=== PATIENT | female | born 1960 | race Caucasian/White ===

== ENCOUNTER → 2016-05-12 | Outpatient (CLI) | payer MEDICAID ==
[~2016-05-12] MED LIST: ACET-789 PO; ACIPHEX PO; ALBU17AE3 IH; ALBU8.5H2 IH; ALDACTONE25 MG PO; AMIT100T2 PO; AMIT150T PO; AMITRIPTYLINE PO; AMLO10TA2 PO; ASCO10006 PO; ATR20T PO; ATRV10T; BUDE10.2 IH; BUDE6HFA IH; CALC625T29 PO; CEPH-507 PO; CEPH500C PO; CETI10TA20 PO; CLON1TAB3 PO; CPR500T PO; CRS350T PO; D50KC PO; DEXL60CA PO; DEXL60CA3 PO; DICL100G20 TOP; DIPH1TAB PO; DIPH1TAB25; DIPH1TAB45 PO; DOXY100C2 PO; DULO30CA; DULO60CA6 PO; FERR-84 PO; FLT05NA16 NS; FLUR30CA13 PO; FNT75TD; FRS325T PO; FURO40TA4; FURO40TA4 PO; FURO80TA PO; GABA300C PO; GABA600T2 PO; GBPN300C PO; HCT25T PO; HYDR1TAB PO; IRON45TA6 PO; KCL20TCR; LACT1CAP72 PO; LEVO125T; LEVO125T6 PO; LEVO75TA58 PO; LIDO700A6 TP; LISI10TA PO; LISI40TA PO; LOSA100T28 PO; LOSA25TA5 PO; LOVA20TA2 PO; METH10TA2 PO; METH5TAB PO; METO-272 PO; METO100T5 PO; METR500T PO; MILN100T PO; MOME13HF2 IH; MTH10T PO; MULT-228 PO; MULT-35 PO; NAPR-243 PO; NFNEB10T; NIAC1CAP PO; NYST1000 MM; OMG1KC PO; ONDA8TAB9 PO; PANT40TA2 PO; PEDI1TAB29 PO; POTA10CA16 PO; POTA10CA43 PO; PREG150C PO; PROP120C3; PSYL0.525 PO; QUET200T PO; RABE20TA PO; ROPI1TAB2 PO; ROPI2TAB3; ROPI4TAB PO; RT-ALBUINH IH; SCR1T PO; SUMA25TA3 PO; TEMA15CA54; TEMA15CA54 PO; TOLTA4 PO; TRAM; TRAM50TA2 PO; VENL150C98 PO; VNL75CCR PO; [UNRECOGNIZED DRUG - CODE] PC; [UNRECOGNIZED DRUG - CODE] PO
--- NOTE | 2016-05-12 18:39 | Diagnostic Imaging Report ---
PROCEDURE: MRI lumbar spine. TECHNIQUE: Multiplanar, multisequence MRI of the lumbar spine was performed without contrast. INDICATION: Lumbar radiculopathy COMPARISON: CT dated January 01, 2010 FINDINGS: Five lumbar type vertebral bodies are present. Alignment of the lumbar spine is well maintained. Vertebral body heights are well-maintained. Mild disc space height loss at L4/L5. Otherwise, disc space heights are well-maintained. Bone marrow signal intensity is unremarkable. The conus medullaris is unremarkable and terminates at the appropriate location. The paraspinal soft tissues are unremarkable. T12/L1: No significant central canal or neuroforaminal stenosis. L1/L2: No significant central canal or neuroforaminal stenosis. L2/L3: Minimal bilateral facet joint degenerative changes. No significant central canal or neuroforaminal stenosis. L3/L4: Mild bilateral facet joint degenerative changes. No significant central canal or neuroforaminal stenosis. L4/L5: Mild bilateral facet joint degenerative changes. Mild disc space height loss. There is resulting very minimal right neuroforaminal stenosis. No significant central canal stenosis. L5/S1: Conjoined nerve roots are identified on the left. No significant central canal or neuroforaminal stenosis. IMPRESSION: No acute osseous abnormality. No high-grade central canal or neuroforaminal stenosis. 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 Dictated by: Dictated on workstation # [id number]
== END ==
LOC: RAD 17:13
PROVIDERS: ATTEND Orthopaedic Surgery
DX: M54.16 Radiculopathy, lumbar region (principal); M17.12 Unilateral primary osteoarthritis, left knee; M17.11 Unilateral primary osteoarthritis, right knee
CPT/HCPCS: 72148

== ENCOUNTER → 2016-06-16 | Outpatient (CLI) | payer MEDICAID ==
[~2016-06-16] VITALS: Ht 160 cm; Wt 110.2 kg
[~2016-06-16] MED LIST changes: +BUPIVACAINE 0.5% 30 ML (SENSORCAINE) VIAL ONE; +LIDOCAINE 1% INJ 20 ML (XYLOCAINE) VIAL ONE; +TRIAMCINOLONE ACET (KENALOG-40) 40 MG/ML 1 ML VIAL ONE
[2016-06-16 12:56] VITALS: BP 124/75
[2016-06-16 13:31] VITALS: BP 129/77
--- NOTE | 2016-06-16 14:50 | Pain Medicine-Procedure ---
Procedure Pre-Op/Post-Op Diagnosis Diagnosis: spondylosis without myelopathy, lumbar Indications for Operation low back pain Attending Surgeon Kaveh Procedure Date of Service: Jun 16, 2016 Procedure: Fluoroscopic guided right Medial Branch Block of L3 to sacral ala PROCEDURE IN DETAIL: After obtaining informed consent from the patient, the patient's chart was reviewed. The patient was then brought to the procedure room and placed in the prone position. A time out was performed. The back was prepped with antiseptic solution and under fluoroscopic guidance the patient's sacral ala on the right side was identified. 2 mL's of 1% Lidocaine was used to anesthetized the skin over the sacral ala and a 22 gauge 3.5 inch needle was advanced towards the target until bone was contacted. The junction of the superior articular processes and the transverse processes at L3-L5 on the right were then identified and the skin overlying these targets was anesthetized with 1% lidocaine. Next a 22 gauge 3.5 inch needle was inserted through the skin to the level of the lumbar medial branches under radiographic guidance. Next, after negative aspiration, a mixture of 2 mL's Bupivacaine 0.5% and 80 mg Kenalog was injected in 4 equal aliquots. CSF was negative, Paresthesia was negative, Heme was negative. All needles were then flushed with 1% lidocaine and then removed. Complications none BRENTON BENNETT MD Jun 16, 2016 2:50 pm
== END ==
LOC: CARD 12:38
PROVIDERS: ATTEND Pain Medicine Pain Medicine
DX: M47.816 Spondylosis without myelopathy or radiculopathy, lumbar region (principal); M53.3 Sacrococcygeal disorders, not elsewhere classified; E66.01 Morbid (severe) obesity due to excess calories; Z68.41 Body mass index [BMI] 40.0-44.9, adult; M79.7 Fibromyalgia; Z79.899 Other long term (current) drug therapy
CPT/HCPCS: 64493; 64494; 64495

== ENCOUNTER 2016-06-19 12:44 | Outpatient (CLI) | payer MEDICAID ==
[~2016-06-19] VITALS: Ht 160 cm; Wt 110.2 kg
[~2016-06-19 12:44] MED LIST changes: -BUPIVACAINE 0.5% 30 ML (SENSORCAINE) VIAL ONE; -LIDOCAINE 1% INJ 20 ML (XYLOCAINE) VIAL ONE; -TRIAMCINOLONE ACET (KENALOG-40) 40 MG/ML 1 ML VIAL ONE
[2016-06-19] MEDS ORDERED: TRIAMCINOLONE ACET (KENALOG-40) 40 MG/ML 1 ML VIAL ONE (12:52)
[2016-06-19] MEDS ORDERED: BUPIVACAINE 0.5% 30 ML (SENSORCAINE) VIAL ONE (12:52)
[2016-06-19] MEDS ORDERED: LIDOCAINE 1% INJ 20 ML (XYLOCAINE) VIAL ONE (12:52)
[2016-06-19 13:21] VITALS: BP 149/94
[2016-06-19 13:47] VITALS: BP 149/96
--- NOTE | 2016-06-19 14:15 | Pain Medicine-Procedure ---
Procedure Pre-Op/Post-Op Diagnosis Diagnosis: spondylosis without myelopathy, lumbar Indications for Operation Low back pain Attending Surgeon Kaveh Procedure Date of Service: Jun 19, 2016 Procedure: Fluoroscopic guided left Medial Branch Block of L3 to sacral ala PROCEDURE IN DETAIL: After obtaining informed consent from the patient, the patient's chart was reviewed. The patient was then brought to the procedure room and placed in the prone position. A time out was performed. The back was prepped with antiseptic solution and under fluoroscopic guidance the patient's sacral ala on the left side was identified. 2 mL's of 1% Lidocaine was used to anesthetized the skin over the sacral ala and a 22 gauge 3.5 inch needle was advanced towards the target until bone was contacted. The junction of the superior articular processes and the transverse processes at L3-L5 on the left were then identified and the skin overlying these targets was anesthetized with 1% lidocaine. Next a 22 gauge 3.5 inch needle was inserted through the skin to the level of the lumbar medial branches under radiographic guidance. Next, after negative aspiration, a mixture of 2 mL's Bupivacaine 0.5% and 80 mg Kenalog was injected in 4 equal aliquots. CSF was negative, Paresthesia was negative, Heme was negative. All needles were then flushed with 1% lidocaine and then removed. Band-Aids were applied to all the sites and the patient tolerated the procedure well and was taken to the recovery area in stable condition. Patient was discharged to home in stable condition with no new neurologic deficits. Complications None BRENTON BENNETT MD Jun 19, 2016 2:15 pm
== END 2016-06-19 13:48 | disposition home or self-care (01) ==
LOC: CARD 12:44
PROVIDERS: ATTEND Pain Medicine Pain Medicine
DX: M47.816 Spondylosis without myelopathy or radiculopathy, lumbar region (principal); E66.01 Morbid (severe) obesity due to excess calories; Z68.41 Body mass index [BMI] 40.0-44.9, adult; M53.3 Sacrococcygeal disorders, not elsewhere classified; Z79.899 Other long term (current) drug therapy; M79.7 Fibromyalgia
CPT/HCPCS: 64493; 64494; 64495

== ENCOUNTER 2016-10-03 17:17 | Emergency (ER) | payer MEDICAID ==
[~2016-10-03] VITALS: Ht 160 cm; Wt 117.0 kg
[2016-10-03] MEDS ORDERED: NS IV 500 ML 500 ML IV ONE (18:34)
[2016-10-03] MEDS ORDERED: ONDANSETRON 4 MG/2 ML (SDV) Z0FRAN IVP ONE (18:45)
[2016-10-03 18:52] LABS: BASOPHILS # (AUTO) 0.1 10^3/uL (0.0-0.1); BASOPHILS % (AUTO) 1 % (0-10); EOSINOPHILS # (AUTO) 0.3 10^3/uL (0.0-0.3); EOSINOPHILS % (AUTO) 4 % (0-10); LYMPHOCYTES # (AUTO) 2.3 X 10^3 (1.0-4.0); LYMPHOCYTES % (AUTO) 27 % (12-44); MEAN CORPUSCULAR HEMOGLOBIN 29 PG (25-34); MEAN CORPUSCULAR HGB CONC 32 G/DL (32-36); MEAN CORPUSCULAR VOLUME 91 FL (80-99); MEAN PLATELET VOLUME 9.8 FL (7.4-10.4); MONOCYTES # (AUTO) 0.7 X 10^3 (0.0-1.0); MONOCYTES % (AUTO) 8 % (0-12); NEUTROPHILS # (AUTO) 5.3 X 10^3 (1.8-7.8); NEUTROPHILS % (AUTO) 60 % (42-75); PLATELET COUNT 283 10^3/uL (130-400); RED BLOOD COUNT 4.19 10^6/uL (4.35-5.85); RED CELL DISTRIBUTION WIDTH 13.4 % (10.0-14.5); WHITE BLOOD COUNT 8.7 10^3/uL (4.3-11.0)
[2016-10-03 19:11] LABS: ALBUMIN 4.4 GM/DL (3.2-4.5); BILIRUBIN,TOTAL 0.4 MG/DL (0.1-1.0); CALCIUM 10.2 MG/DL (8.5-10.1); CREATININE SERUM 1.13 MG/DL (0.60-1.30); ICTERUS 0.3 (-100-1.9); MAGNESIUM 1.9 MG/DL (1.8-2.4); POTASSIUM 4.1 MMOL/L (3.6-5.0); TOTAL PROTEIN 7.8 GM/DL (6.4-8.2)
[2016-10-03 19:31] LABS: THYROID STIMULATING HORMONE 6.19 UIU/ML (0.35-4.94)
[2016-10-03 19:49] LABS: BILIRUBIN,URINE NEGATIVE (NEGATIVE); KETONES,URINE NEGATIVE (NEGATIVE); LEUKOCYTE ESTERASE ,URINE 1+ (NEGATIVE); NITRITE,URINE NEGATIVE (NEGATIVE); PH,URINE 7 (5-9); PROTEIN,URINE NEGATIVE (NEGATIVE); UROBILINOGEN,URINE NORMAL (NORMAL)
[2016-10-03] MEDS ORDERED: ONDA4TAB8 SL (20:11)
--- NOTE | 2016-10-03 20:12 | ED General ---
General Chief Complaint: General Problems/Pain Stated Complaint: NAUSEA/HEADACHE Nursing Triage Note: AMB TO ED C/O NAUSEA FOR 1 WEEK AND WITH HEADACHE FOR 5 DAYS NO VOMITING. REPORTS THAT HAS STAGE 4 RENAL DIEASE. Nursing Sepsis Screen: No Definite Risk Source of Information: Patient Exam Limitations: No Limitations History of Present Illness Time Seen by Provider: 18:25 Initial Comments This pleasant 56-year-old woman presents to the emergency room with headache 5 days and nausea without vomiting 1 week. She reports urine has been dark and odorous. She has not been drinking well recently due to the nausea. She gives a history of chronic renal failure but is not presently seeing a manager mission due to financial resources. Her primary care provider is Miya Mae. Allergies and Home Medications Allergies Coded Allergies: No Known Drug Allergies (Unverified , 09/29/15) Home Medications Albuterol Sulfate 6.7 Gm Hfa.aer.ad, 2 PUFF IH Q4H PRN for SHORTNESS OF BREATH, (Reported) Amitriptyline HCl 150 Mg Tablet, 150 MG PO HS, (Reported) Amlodipine Besylate 10 Mg Tablet, 10 MG PO DAILY, (Reported) Budesonide/Formoterol Fumarate 10.2 Gm Hfa.aer.ad, 2 PUFF IH BID, (Reported) Cetirizine HCl 10 Mg Tablet, 10 MG PO DAILY, (Reported) Clonazepam 1 Mg Tablet, 1 MG PO BID, (Reported) Duloxetine HCl 60 Mg Capsule.dr, 60 MG PO DAILY, (Reported) Ergocalciferol (Vitamin D2) 50,000 Unit Capsule, 50,000 UNIT PO ONCE A MONTH, ( Reported) Ferrous Sulfate 325 Mg Tablet, 650 MG PO TID, (Reported) TAKES 2 (325MG) TABLETS Fluticasone Propionate 16 Gm Covert, 2 SPRAY NS DAILY PRN for ALLERGIES, ( Reported) Furosemide 40 Mg Tablet, 40 MG PO DAILY, (Reported) Levothyroxine Sodium 125 Mcg Tablet, 125 MCG PO DAILY, (Reported) Losartan Potassium 100 Mg Tablet, 100 MG PO DAILY, (Reported) Metoprolol Succinate 50 Mg Tab.er.24h, 50 MG PO TID, (Reported) Multivitamin 1 Each Tablet, 1 EACH PO DAILY, (Reported) Niacin (Inositol Niacinate) 500 Mg Capsule, 500 MG PO HS, (Reported) Nystatin 100,000 Unit/1 Ml Oral.susp, 5 ML MM DAILY PRN for MOUTH SORES, ( Reported) [place] 3 Polyunsat Fatty Acids 1,000 Mg Cap, 1,000 MG PO BID, (Reported) Ondansetron 4 Mg Tab.rapdis, 4 MG SL Q4H, #10 Prescribed by: STACEY WEST on 10/03/162010 Pantoprazole Sodium 40 Mg Tablet.dr, 40 MG PO PRN, (Reported) Potassium Chloride 10 Meq Capsule.er, 10 MEQ PO DAILY, (Reported) Pregabalin 150 Mg Capsule, 150 MG PO TID, (Reported) Ropinirole HCl 4 Mg Tab.er.24h, 8 MG PO HS, (Reported) TAKES 2 (4MG) TABLETS [Power-C] , 2 TAB.CHEW PC TID, (Reported) VITAMIN C ASCORBIC ACID AND SODIUM ASCORBATE 240MG EACH Constitutional: no symptoms reported EENTM: no symptoms reported Respiratory: no symptoms reported Cardiovascular: no symptoms reported Gastrointestinal: see HPI Genitourinary: see HPI : No Musculoskeletal: no symptoms reported Skin: no symptoms reported Psychiatric/Neurological: See HPI Hematologic/Lymphatic: No Symptoms Reported Immunological/Allergic: no symptoms reported Past Ynymlew-Oicgpf-Uoigji Hx Patient Social History Alcohol Use: Denies Use Recreational Drug Use: No Smoking Status: Never a Smoker Recent Foreign Travel: No Contact w/Someone Who Travel: No Recent Infectious Disease Expo: No Recent Hopitalizations: Yes Surgeries HX Surgeries: Yes ( lt endolymphatic shunt mastoids, esphageal zenker diverticulum removed) Respiratory Hx Respiratory Disorders: Yes (ASTHMA) Respiratory Disorders: Asthma Cardiovascular Hx Cardiac Disorders: Yes (CAD, MITRAL VALVE PROLAPSE) Cardiac Disorders: High Cholesterol, Hypertension, Valvular Heart Disease Neurological Hx Neurological Disorders: No Reproductive System Hx Reproductive Disorders: No Sexually Transmitted Disease: No Genitourinary Hx Genitourinary Disorders: Yes Genitourinary Disorders: Renal Failure Gastrointestinal Hx Gastrointestinal Disorders: Yes Gastrointestinal Disorders: Gastroesophageal Reflux Musculoskeletal Hx Musculoskeletal Disorders: Yes (FIBROMYALGIA) Musculoskeletal Disorders: Arthritis, Fibromyalgia Endocrine Hx Endocrine Disorders: Yes Endocrine Disorders: Hypothyroidsim HEENT HX ENT Disorders: Yes Psychosocial Hx Psychiatric Problems: Yes Behavioral Health Disorders: Anxiety, Depression Blood Transfusions Hx Blood Disorders: No Physical Exam Vital Signs Vital Sign - Last 12Hours 10/03/16 10/03/16 18:20 20:13 Temp 98.9 Pulse 79 Resp 18 B/P (MAP) 169/90 Pulse Ox 94 O2 Delivery Room Air Capillary Refill : Less Than 3 Seconds General Appearance: No Apparent Distress, WD/WN HEENT: PERRL/EOMI, TMs Normal, Normal ENT Inspection, Other (oropharynx somewhat dry) Neck: Normal Inspection Respiratory: Lungs Clear, Normal Breath Sounds, No Accessory Muscle Use, No Respiratory Distress Cardiovascular: Regular Rate, Rhythm, No Edema, No Murmur Gastrointestinal: Normal Bowel Sounds, Non Tender, Soft Extremity: Normal Inspection, Other (minimal lower extremity edema, equal bilaterally) Neurologic/Psychiatric: Alert, Oriented x3, No Motor/Sensory Deficits, Normal Mood/Affect, home care music therapist II-XII Norm as Tested Skin: Normal Color, Warm/Dry Progress/Results/Core Measures Results/Orders Lab Results Laboratory Tests Test 10/03/16 18:42 10/03/16 19:40 Range/Units White Blood Count 8.7 4.3-11.0 10^3/uL Red Blood Count 4.19 L 4.35-5.85 10^6/uL Hemoglobin 12.1 11.5-16.0 G/DL Hematocrit 38 35-52 % Mean Corpuscular Volume 91 80-99 FL Mean Corpuscular Hemoglobin 29 25-34 PG Mean Corpuscular Hemoglobin Concent 32 32-36 G/DL Red Cell Distribution Width 13.4 10.0-14.5 % Platelet Count 283 130-400 10^3/uL Mean Platelet Volume 9.8 7.4-10.4 FL Neutrophils (%) (Auto) 60 42-75 % Lymphocytes (%) (Auto) 27 12-44 % Monocytes (%) (Auto) 8 0-12 % Eosinophils (%) (Auto) 4 0-10 % Basophils (%) (Auto) 1 0-10 % Neutrophils # (Auto) 5.3 1.8-7.8 X 10^3 Lymphocytes # (Auto) 2.3 1.0-4.0 X 10^3 Monocytes # (Auto) 0.7 0.0-1.0 X 10^3 Eosinophils # (Auto) 0.3 0.0-0.3 10^3/uL Basophils # (Auto) 0.1 0.0-0.1 10^3/uL Sodium Level 142 135-145 MMOL/L Potassium Level 4.1 3.6-5.0 MMOL/L Chloride Level 103 98-107 MMOL/L Carbon Dioxide Level 27 21-32 MMOL/L Anion Gap 12 5-14 MMOL/L Blood Urea Nitrogen 14 7-18 MG/DL Creatinine 1.13 0.60-1.30 MG/DL Estimat Glomerular Filtration Rate 50 BUN/Creatinine Ratio 12 0-20 Glucose Level 97 70-105 MG/DL Calcium Level 10.2 H 8.5-10.1 MG/DL Magnesium Level 1.9 1.8-2.4 MG/DL Total Bilirubin 0.4 0.1-1.0 MG/DL Aspartate Amino Transf (AST/SGOT) 23 5-34 U/L Alanine Aminotransferase (ALT/SGPT) 21 0-55 U/L Alkaline Phosphatase 111 40-136 U/L Total Protein 7.8 6.4-8.2 GM/DL Albumin 4.4 3.2-4.5 GM/DL Thyroid Stimulating Hormone (TSH) 6.19 H 0.35-4.94 UIU/ML Free Thyroxine 0.84 0.70-1.48 NG/DL Urine Color YELLOW Urine Clarity CLEAR Urine pH 7 5-9 Urine Specific Boring 1.005 L 1.016-1.022 Urine Protein NEGATIVE NEGATIVE Urine Glucose (UA) NEGATIVE NEGATIVE Urine Ketones NEGATIVE NEGATIVE Urine Nitrite NEGATIVE NEGATIVE Urine Bilirubin NEGATIVE NEGATIVE Urine Urobilinogen NORMAL NORMAL MG/DL Urine Leukocyte Esterase 1+ H NEGATIVE Urine RBC (Auto) NEGATIVE NEGATIVE Urine RBC NONE /HPF Urine WBC 2-5 /HPF Urine Squamous Epithelial Cells 2-5 /HPF Urine Crystals NONE /LPF Urine Bacteria TRACE /HPF Urine Casts NONE /LPF Urine Mucus NEGATIVE /LPF Urine Culture Indicated NO My Orders Orders - STACEY COMBS MD Cbc With Automated Diff (10/03/16 18:34) Comprehensive Metabolic Panel (10/03/16 18:34) Magnesium (10/03/16 18:34) Thyroid Stimulating Hormone (10/03/16 18:34) Ua Culture If Indicated (10/03/16 18:34) Ondansetron Injection (Zofran Injectio (10/03/16 18:45) Saline Lock/Iv-Start (10/03/16 18:34) Ns Iv 500 Ml (Sodium Chloride 0.9%) (10/03/16 18:34) Free T4 (Free Thyroxine) (10/03/16 18:34) Medications Given in ED Current Medications Medications Dose Ordered Sig/Sonia Route Start Time Stop Time Status Last Admin Dose Admin Ondansetron HCl 4 mg ONCE ONCE IVP 10/03/16 18:45 10/03/16 18:46 DC 10/03/16 18:58 4 MG Sodium Chloride 500 ml @ 0 mls/hr Q0M ONCE IV 10/03/16 18:34 10/03/16 18:37 DC 10/03/16 18:58 999 MLS/HR Vital Signs/I&O Vital Sign - Last 12Hours 10/03/16 10/03/16 18:20 20:13 Temp 98.9 98.9 Pulse 79 69 Resp 18 18 B/P (MAP) 169/90 Pulse Ox 94 O2 Delivery Room Air Blood Pressure Mean: 116 Progress Note : Progress Note Patient was given normal saline 500 mL bolus. Workup was relatively unremarkable. Zofran improved and nausea and she was tolerating oral liquids without difficulty. Departure Impression Impression: Primary Impression: Nausea Additional Impression: Headache Qualified Codes: R51 - Headache Disposition: 01 HOME, SELF-CARE Condition: Improved Departure-Patient Inst. Decision time for Depature: 20:09 Referrals: CAMERON OGLESBY DO (PCP) Primary Care Physician MIYA MAE (Family) Primary Care Physician Patient Instructions: Nausea and Vomiting, Adult Add. Discharge Instructions: Drink plenty of clear liquids. Use Zofran (ondansetron) dissolved under the tongue every 4 hours as prescribed for nausea. Follow-up with your primary care provider preferably next week. Return to the ER if symptoms worsen. All discharge instructions reviewed with patient and/or family. Voiced understanding. Scripts Ondansetron (Zofran Odt) 4 Mg Tab.rapdis 4 MG SL Q4H, #10 TAB Prov: STACEY COMBS MD 10/03/16 Copy Copies To 1: ANN MARIE JARA MD, JOSHUA T MD Oct 03, 2016 20:12
[2016-10-03 20:13] VITALS: BP 139/63
--- OUTSIDE RECORDS SUMMARY | 2016-10-05 16:34 | XMS REPORT ---
Author Author ZABRINA MEDINA Organization [employer] Address Unknown Phone Unavailable Care Team Providers Care Car Tester Name Role Phone ZABRINA MEDINA CP Unavailable Allergies No Known Allergies Problems Problem Type Condition Code Onset Dates Condition Status Problem Generalized anxiety disorder F41.1 Active Problem Depressed F32.9 Active Problem Restless leg G25.81 Active Problem Dysthymic 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 Active Problem Coronary artery disease involving [place] coronary artery of [place] heart, angina presence unspecified I25.10 Active Problem Hypertension I10 Active Problem Chronic kidney disease, stage 4 (severe) N18.4 Active Problem Palpitations R00.2 Active Problem Asthma J45.909 Active Problem Hypothyroid E03.9 Active Problem Insomnia G47.00 Active Medications Medication Code System Code Instructions Start Date End Date Status Dosage Zolpidem Tartrate [place] 86450083619 5 MG TAKE ONE TABLET BY MOUTH AT BEDTIME Clonazepam [place] 12707544288 1 MG TAKE ONE-HALF TABLET BY MOUTH TWICE DAILY Results No Known Results Summary Purpose [employer] Submission
--- OUTSIDE RECORDS SUMMARY | 2016-10-05 16:34 | XMS REPORT ---
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 Name Role Phone ELROY GREENE CP Unavailable Allergies No Known Allergies Problems Problem Type Condition Code Onset Dates Condition Status Problem Generalized anxiety disorder F41.1 Active Problem Depressed F32.9 Active Problem Restless leg G25.81 Active Problem Coronary artery disease involving [place] coronary artery of [place] heart, angina presence unspecified I25.10 Active Problem Hypertension I10 Active Problem Chronic kidney disease, stage 4 (severe) N18.4 Active Problem Palpitations R00.2 Active Problem Asthma J45.909 Active Problem Hypothyroid E03.9 Active Problem Insomnia G47.00 Active Assessment Dysthymic 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 Active Assessment Generalized anxiety disorder F41.1 Active Problem Dysthymic 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 Active Medications No Known Medications Results No Known Results Summary Purpose [employer] Submission
--- OUTSIDE RECORDS SUMMARY | 2016-10-05 16:34 | XMS REPORT | Clinical Summary ---
Author Author Admin, MONICA Organization [facility] Address Unknown Phone Unavailable Allergies, Adverse Reactions, Alerts Allergy Name Reaction Description Start Date Severity Status Provider No Known Allergies Maryam Lewis RN Conditions or Problems Problem Name Problem Code Onset Date Status Entry Date Provider Comment Standard Description Annotate Incontinence, mixed, urge/stress 788.33 Active David Marcelino MD Mixed incontinence (female) (male) Medication List Medication Instructions Start Date Stop Date Generic Name NDC Status Provider Patient Instruction No Drug Therapy Prescribed - none known did ask Maryam Lewis RN CYCLOBENZAPRINE HCL 10 MG TABS 1 tablet by mouth three times daily as needed for muscle spasm/pain CYCLOBENZAPRINE HCL 28298467999 Active David Marcelino MD Active EQ FIBER THERAPY 0.52 GM ORAL CAPS 1 cap by mouth three times daily PSYLLIUM 40022097165 Active David Marcelino MD Active FISH OIL CONCENTRATE 1000 MG ORAL CAPS 3 caps by mouth daily OMEGA-3 FATTY ACIDS 50442305236 Active David Marcelino MD Active VITAMIN D3 45880 UNIT ORAL TABS 1 cap by mouth monthly CHOLECALCIFEROL 44133235538 Active David Marcelino MD Active VITAMIN C PLUS 1000 MG ORAL TABS 2 tabs by mouth three times daily BIOFLAVONOID PRODUCTS 60322507972 Active David Marcelino MD Active TOPROL XL 50 MG ORAL [id number] 1 tab by mouth three times daily METOPROLOL SUCCINATE 90361576786 Active David Marcelino MD Active SYMBICORT 160-4.5 MCG/ACT AERO 2 puff BID BUDESONIDE-FORMOTEROL FUMARATE 94606060663 Active David Marcelino MD Active REQUIP 4 MG ORAL TABS 2 tabs by mouth daily ROPINIROLE HCL 39660115343 Active David Marcelino MD Active PROVENTIL HFA 108 (90 BASE) MCG/ACT INH AERS 2 inhaltions prn ALBUTEROL SULFATE 73625595896 Active David Marcelino MD Active PROTONIX 40 MG ORAL TBEC 1 po q a.m. PANTOPRAZOLE SODIUM 39665151391 Active David Marcelino MD Active NORVASC 10 MG TAB 1 tablet by mouth daily AMLODIPINE BESYLATE 31002403681 Active David Marcelino MD Active LYRICA 150 MG CAPS 1 tab by mouth 3 times daily PREGABALIN 14049390541 Active David Marcelino MD Active LOSARTAN POTASSIUM 100 MG TABS 1 pill by mouth daily, for blood pressure [place]AN POTASSIUM 72435893210 Active David Marcelino MD Active LEVOTHYROXINE SODIUM 125 MCG TABS 1 qDay LEVOTHYROXINE SODIUM 60163244124 Active David Marcelino MD Active LASIX 40 MG TAB 1 tablet by mouth daily FUROSEMIDE 34212970120 Active David Marcelino MD Active KLOR-CON M10 10 MEQ TBCR 1 tablet by mouth daily POTASSIUM CHLORIDE GI CR 96018842772 Active David Marcelino MD Active KLONOPIN 1 MG TAB 1 tab by mouth daily CLONAZEPAM 20640530432 Active David Marcelino MD Active VERAMYST 27.5 MCG/SPRAY NASAL SUSP 1 spray in nostril as needed FLUTICASONE FUROATE 74624006681 Active David Marcelino MD Active FERROUS SULFATE 325 (65 FE) MG TABS 1 tablet by mouth daily FERROUS SULFATE 89746724988 Active David Marcelino MD Active CYMBALTA 60 MG CPEP 1 cap by mouth daily DULOXETINE HCL 55834207938 Active David Marcelino MD Active CETIRIZINE HCL 10 MG ORAL TABS 1 po qd PRN Allergies CETIRIZINE HCL 10364059977 Active David Marcelino MD Active AMITRIPTYLINE HCL 25 MG TAB 1 tab by mouth daily at bedtime AMITRIPTYLINE HCL 56679817858 Active David Marcelino MD Active AMBIEN 5 MG TAB 1 po qHS PRN Insomnia ZOLPIDEM TARTRATE 83114197179 Active David Marcelino MD Active Vital Signs Date Name Value Unit Range Description blood pressure, diastolic - 8462-4 52 mm[Hg] BP montalvo blood pressure, systolic - 8480-6 111 mm[Hg] BP sys height E&M - 8302-2 63 [in_us] Bdy height pulse rate E&M - 8867-4 74 /min Heart rate temperature E&M 97.1 [degF] Body temperature weight E&M - 3141-9 249 [lb_av] Weight Measured blood pressure, diastolic - 8462-4 55 mm[Hg] BP m[place] blood pressure, systolic - 8480-6 100 mm[Hg] BP sys height E&M - 8302-2 63 [in_us] Bdy height pulse rate E&M - 8867-4 63 /min Heart rate temperature E&M 98.0 [degF] Body temperature weight E&M - 3141-9 243.5 [lb_av] Weight Measured Diagnostic Results Date Name Value Unit Range Description Office Visit: CN-urinary incontinence - Chemistry RBC, urine, dipstick negative protein, total urine random negative mg/dL Office Visit: CN-urinary incontinence - Urinalysis pH, urine, semiquantitative 5 specific gravity, urine 1.015 urinalysis, routine Clean Catch culture status No ketones, urine, by test strip negative bilirubin, urine negative glucose, urine, semiquantitative negative urine color yellow appearance, urine clear leukocyte esterase, urine, by dipstick negative nitrite, urine, semiquantitative negative urobilinogen, urine, semiquantitative (dipstick) 0.2 protein, urine, semiquantitative (dipstick) negative Office Visit: Follow up [facility], discuss surgery - Chemistry RBC, urine, dipstick negative protein, total urine random negative mg/dL Office Visit: Follow up [facility], discuss surgery - Urinalysis pH, urine, semiquantitative 5 specific gravity, urine 1.010 ketones, urine, by test strip negative bilirubin, urine negative glucose, urine, semiquantitative negative urinalysis, routine Clean Catch urine color yellow appearance, urine clear leukocyte esterase, urine, by dipstick 1+ nitrite, urine, semiquantitative negative urobilinogen, urine, semiquantitative (dipstick) negative Encounters Code Encounter Date Provider Facility CPT-19894 Level 3 Est. 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
--- OUTSIDE RECORDS SUMMARY | 2016-10-05 16:34 | XMS REPORT ---
Author Author ISABEL MAE [facility] Address [address] [place] [address] Care Team Providers Care Psychologist Personnel Name Role Phone TU ISABEL Unavailable PROBLEMS Type Condition ICD9-CM Code [id number] Code Onset Dates Condition Status SNOMED Code Problem Urinary problem R39.89 Active 615639579 Problem History of anemia Z86.2 Active 684746192 Problem Acute non-recurrent maxillary sinusitis J01.00 Active 03865952 Problem Dyspepsia R10.13 Active 325495337 Problem Restless leg G25.81 Active 94009152 Problem Yeast dermatitis B37.2 Active 42920576 Problem Generalized anxiety disorder F41.1 Active 86213326 Problem Dysthymic 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 Active 75694132 Problem Asthma with acute exacerbation in adult J45.901 Active 018845784 Problem Dysuria R30.0 Active 46541364 Problem Hypokalemia E87.6 Active 24322060 Problem Other seasonal allergic rhinitis J30.2 Active 352601365 Problem Palpitations R00.2 Active 96575598 Problem Insomnia G47.00 Active 816213187 Problem Depressed F32.9 Active 75806774 Problem Asthma J45.909 Active 806892949 Problem Chronic kidney disease, stage 4 (severe) N18.4 Active 804171480 Problem History of colon polyps Z86.010 Active 474626841 Assessment Hypertension I10 08 Dec, 2015 Active 88447692 Problem Hypothyroid E03.9 Active 83080153 Problem Functional 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 Active 31990375 Assessment Dysuria R30.0 08 Dec, 2015 Active 72866698 Problem Coronary artery disease involving [place] coronary artery of [place] heart, angina presence unspecified I25.10 Active 7588079525012 Problem Bowel habit changes R19.4 Active 33999187 ALLERGIES Substance Reaction Event Type Date Status N.K.D.A. Unknown Non Drug Allergy Dec, Unknown SOCIAL HISTORY No smoking Hx information available PLAN OF CARE VITAL SIGNS Height 63 in 2015-12-23 Weight 241.5 lbs 2015-12-23 Heart Rate 82 bpm 2015-12-23 Respiratory Rate 18 2015-12-23 BMI 42.78 kg/m2 2015-12-23 Blood pressure systolic 144 mmHg 2015-12-23 Blood pressure diastolic 89 mmHg 2015-12-23 MEDICATIONS Medication Instructions Dosage Frequency Start Date End Date Duration Status Fluticasone Propionate 50 MCG/ACT USE ONE SPRAY IN EACH NOSTRIL TWICE DAILY Active Amlodipine Besylate 10 MG Orally Once a day 1 tablet 24h Active Cetirizine HCl 10 MG Orally Once a day 1 tablet 24h Active Clonazepam 1 MG Orally Twice a day 1 tablet 12h Active Losartan Potassium 100 MG Orally Once a day 1 tablet 24h 30 days Active Potassium Chloride ER 10 MEQ Orally Once a day 1 capsule with food 24h Apr, 30 days Active Protonix 40 MG TAKE ONE TABLET BY MOUTH ONCE DAILY Active Vitamin C Gummie 120 MG Active Cymbalta 60 MG Orally Once a day 1 capsule 24h 90 Active Fiber Complete - Active Toprol XL 50 mg Orally 3 times a day 1 tablet 8h Active Synthroid 125 mcg Orally Once a day 1 tablet 24h Active Norvasc 10 Orally Once a day 1 tablet 24h Active Zolpidem Tartrate 5 MG TAKE ONE TABLET BY MOUTH AT BEDTIME Active Metoprolol Succinate ER 50 MG Orally Once a day 1 tablet 24h Active Estradiol 0.5 MG Vaginal Once a day at HS x 14 days, then 3 times per week 1 tablet Nov, 30 day(s) Active Augmentin 875-125 MG Orally every 12 hrs 1 tablet 12h Dec,Dec 07 days Active Furosemide 40 mg Orally Once a day 1 tablet 24h Active Lyrica 150 MG Orally 3 times a day 1 capsule 8h Active Vitamin D (Ergocalciferol) 15893 UNIT Orally Once a day 1 capsule 24h Active Levothyroxine Sodium 125 MCG Orally Once a day 1 tablet on an empty stomach in the morning 24h Active Fish Oil 1000 MG Orally Once a day 1 capsule 24h Active Nystatin 044118 UNIT/ML Mouth/Throat Four times a day 4 ml 6h Active Nystatin 815050 UNIT/GM Externally Twice a day 1 application to affected area 12h Active Ferrous Sulfate 325 (65 Fe) MG Orally Once a day 1 tablet 24h Active RESULTS Name Result Date Reference Range H PYLORI (IN HOUSE) 2015-12-23 H. PYLORI negative Control + Lot # [id number] Exp date UA LONG DIP (IN HOUSE) 2015-12-23 Lot # [id number] Exp date Clarity Clear Color Yellow Odor No GLU Negative TAMIKO Negative KET Negative SG 1.025 BLO Negative pH 6.0 Protein Negative URO 0.2 NIT Positive NATO Negative Lot # Exp date CULTURE, URINE 2015-12-23 Urine Culture, Routine Final report Result 1 No growth PROCEDURES Procedure Date Ordered Related Diagnosis Body Site URINALYSIS, AUTO, W/O SCOPE Dec 23, 2015 URINE CULTURE/COLONY COUNT Dec 23, 2015 Office Visit, Est Pt., Level 5 Dec 23, 2015 IMMUNOASSAY,INFECTIOUS AGENT Dec 23, 2015 IMMUNIZATIONS No Known Immunizations
--- OUTSIDE RECORDS SUMMARY | 2016-10-05 16:34 | XMS REPORT ---
Author Author ISABEL MAE Organization [employer] Address Unknown Phone Unavailable Care Team Providers Care Aircraft Engine Mechanic Name Role Phone ISABEL MAE CP Unavailable Allergies No Known Allergies Problems Problem Type Condition Code Onset Dates Condition Status Problem Generalized anxiety disorder 300.02 Active Problem Chronic kidney disease, 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.4 Active Problem Female stress incontinence 625.6 Active Problem Hypertension 401.9 Active Problem Unspecified cardiac dysrhythmia 427.9 Active Problem CAD (coronary artery disease) 414.00 Active Problem Insomnia, unspecified 780.52 Active Problem Depressive disorder, not elsewhere classified 311 Active Problem Edema 782.3 Active Problem Adjustment disorder with anxiety 309.24 Active Problem Palpitations 785.1 Active Problem Asthma, unspecified, unspecified status 493.90 Active Problem Coronary atherosclerosis of unspecified type of vessel, 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 2 tablet at bedtime Results No Known Results Summary Purpose [employer]ClinicalWorks Submission
--- OUTSIDE RECORDS SUMMARY | 2016-10-05 16:34 | XMS REPORT ---
Author Author ZABRINA MEDINA Organization [employer] Address Unknown Phone Unavailable Care Team Providers Care Taxicab Starter Name Role Phone ZABRINA MEDINA CP Unavailable Allergies No Known Allergies Problems Problem Type Condition Code Onset Dates Condition Status Problem Generalized anxiety disorder F41.1 Active Problem Depressed F32.9 Active Problem Restless leg G25.81 Active Problem Dysthymic 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 Active Problem Coronary artery disease involving [place] coronary artery of [place] heart, angina presence unspecified I25.10 Active Problem Hypertension I10 Active Problem Chronic kidney disease, stage 4 (severe) N18.4 Active Problem Palpitations R00.2 Active Problem Asthma J45.909 Active Problem Hypothyroid E03.9 Active Problem Insomnia G47.00 Active Medications No Known Medications Results No Known Results Summary Purpose [employer]Clinical[employer] Submission
--- OUTSIDE RECORDS SUMMARY | 2016-10-05 16:35 | XMS REPORT ---
Author Author ISABEL MAE Organization [employer] Address Unknown Phone Unavailable Care Team Providers Care Placement Manager Name Role Phone ISABEL MAE CP Unavailable Allergies No Known Allergies Problems Problem Type Condition Code Onset Dates Condition Status Problem Generalized anxiety disorder F41.1 Active Problem Depressed F32.9 Active Problem Restless leg G25.81 Active Problem Dysthymic 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 Active Problem Coronary artery disease involving [place] coronary artery of [place] heart, angina presence unspecified I25.10 Active Problem Hypertension I10 Active Problem Chronic kidney disease, stage 4 (severe) N18.4 Active Problem Palpitations R00.2 Active Problem Asthma J45.909 Active Problem Hypothyroid E03.9 Active Problem Insomnia G47.00 Active Medications No Known Medications Results No Known Results Summary Purpose [employer]ClinicalWorks Submission
--- OUTSIDE RECORDS SUMMARY | 2016-10-05 16:35 | XMS REPORT | Continuity of Care Document ---
Author Author [facility] Organization [facility] Address Unknown Phone Unavailable Care Team Providers Care Weather Stripper Name Role Phone STACEY GAMINO PP Insurance Providers Payer Name Policy Number Subscriber Name Relationship Self Pay Bradnon Marquez 01 Self / Same As Patient Advance Directives Directive Response Recorded Date Advance Directives N 07/17/11 2:00pm Health Care Power of Community Leader N 07/17/11 2:00pm Organ Donor Y 07/17/11 2:00pm Problems No Known Problems or Medical conditions. Family History History Response Recorded Date/Time Hx Family Cancer Y father 01/10/11 2: 35pm Hx Family Colorectal Cancer Y father 12/03 2:35pm Hx Family Cardiac Disorders Y both parents 01/10/11 2:35pm Hx Family Stroke Y both parents 01/10/11 2:35pm Hx Family Hypertension Y 01/10/11 2:35pm Allergies, Adverse Reactions, Alerts Allergen Type Severity Reaction Last Updated No Known Drug Allergies 06/03/09 Medications Medication Dose Units Route Sig Qty Days Fluticasone Propionate (Flonase 0.05% Nasal [place]) 1 [place] NS DAILY Furosemide 1 Each PO DAILY Gabapentin (Neurontin) 2 Each PO DAILY Gabapentin (Neurontin) 300 Mg PO DAILY Ropinirole Hcl 1 Mg PO QID Tolterodine Tartrate (Detrol La 4 Mg Cap) 1 Each PO DAILY Venlafaxine HCl (Effexor Xr) 150 Mg PO DAILY Atorvastatin Calcium (Lipitor 20MG) 1 Each PO HS Lisinopril (Prinivil) 10 Mg PO DAILY Mometasone/Formoterol (Dulera 100 Mcg/5 Mcg Inhaler) 2 Puff IH BID Albuterol (Proventil) 2 [place] IH Q 4 HOURS PRN 1 Sumatriptan Succinate (Imitrex) 0 PO UD Losartan Potassium 100 Mg PO DAILY Amitriptyline HCl (Amitriptyline Hcl) 100 Mg PO HS Rabeprazole Sodium (Aciphex) 20 Mg PO BID Fish Oil 1000 Mg PO BID Metoprolol Succinate (Metoprolol Succinate Xl 100 Mg) 50 Mg PO BID Levothyroxine Sodium (Levoxyl) 75 Mcg PO DAILY Doxycycline Hyclate 1 Each PO BID 20 Lisinopril (Prinivil) 10 Mg PO DAILY Iron/Vitamin C (Feosol) 45 Mg PO DAILY Albuterol (Proair Hfa) 1 - 2 Puff IH Q6H PRN Lovastatin (Lovastatin 20 Mg) 40 Mg PO HS Sucralfate 2 Tsp PO ACHS Ciprofloxacin (Cipro) 1 Tab PO BID 7 Metronidazole (Metronidazole 500 Mg) 1 Each PO BID 7 Hydrochlorothiazide 25 Mg PO DAILY Tramadol Hcl 50 Mg PO Q6H PRN Gabapentin 1200 Mg PO TID Diphenoxylate HCl/Atropine (Lomotil Tab) 1 Ea PO TID PRN [Tram] [Amitriptyline] 100 Mg PO HS [Aciphex] 20 Mg PO DAILY Methadone Hcl 5 Mg PO PRN Ergocalciferol (Vitamin D) 63909 Unit PO WEEKLY Milnacipran Hcl (Savella) 100 Mg PO BID Ferrous Sulfate (Feosol) 65 Mg PO DAILY Furosemide (Lasix Tab) 80 Mg PO DAILY Budesonide/Formoterol Fumarate (Symbicort 160-4.5 Mcg Inhaler) 2 Puff IH Q12H Flurazepam Hcl ([place]) 60 Mg PO HS Methadone Hcl 10 Mg PO TID Naproxen (Naprosyn) 1 Each PO BID Response Recorded Date/Time Status not known Unknown Results Test Date Result Interp. Ref. Range Activated Partial Thromboplast Time November 22, 2009 9:42am 29 SEC N 24-35 Alanine Aminotransferase (ALT/SGPT) January 15, 2011 6:25am 43 U/L N 30-65 Albumin January 15, 2011 6:25am 3.2 G/ DL L 3.4-5.0 Alkaline Phosphatase January 15, 2011 6:25am 160 U/L H 50-136 Aspartate Amino Transf (AST/SGOT) January 15, 2011 6:25am 24 U/L N 15-37 B-Type Natriuretic Peptide November 24, 2009 4:49am 68.2 PG/ML N 5.0-100.0 BUN/Creatinine Ratio January 15, 2011 6:25am 5 - Basophils # (Auto) January 10, 2011 10:46am 0.1 10^3/uL N 0.0-0.1 Basophils (%) (Auto) January 10, 2011 10:46am 1 % N 0-10 Blood Urea Nitrogen January 15, 2011 6:25am 8 MG/DL N 7-18 C-Reactive Protein January 15, 2011 6:25am 1.1 MG/DL H 0.2-0.9 Calcium Level January 15, 2011 6:25am 8.9 MG/DL N 8.5-10.1 Carbon Dioxide Level January 15, 2011 6:25am 28 MMOL/L N 21-32 Chloride Level January 15, 2011 6:25am 105 MMOL/L N 101-110 Cholesterol Level November 24, 2009 4:49am 173 MG/DL N -200 Creatinine January 15, 2011 6:25am 1.5 MG/DL H 0.6-1.3 Eosinophils # (Auto) January 10, 2011 10:46am 0.2 10^3/uL N 0.0-0.3 Eosinophils (%) (Auto) January 10, 2011 10:46am 2 % N 0-10 Ferritin October 11, 2005 1:29pm 9 NG/DL - Free Thyroxine June 04, 2009 5:25am 0.72 NG/DL N 0.59-1.17 Glucose Level January 15, 2011 6:25am 103 MG/DL N 74-106 HDL Cholesterol November 24, 2009 4:49am 34 MG/DL L 35-60 Hematocrit January 15, 2011 6:25am 30 % L 35-52 Hemoglobin January 15, 2011 6:25am 10.1 G/DL L 11.5-16.0 LDL Cholesterol November 24, 2009 4:49am 101 MG/DL N 0-129 Lymphocytes # (Auto) January 10, 2011 10:46am 2.7 X 10^3 N 1.0-4.0 Lymphocytes (%) (Auto) January 10, 2011 10:46am 24 % N 12-44 Magnesium Level November 22, 2008 2:45pm 1.9 MG/DL N 1.8-2.4 Mean Corpuscular Hemoglobin January 15, 2011 6:25am 31 PG N 25-34 Mean Corpuscular Hemoglobin Concent January 15, 2011 6:25am 33 G/DL N 32-36 Mean Corpuscular Volume January 15, 2011 6:25am 92 FL N 80-99 Mean Platelet Volume January 15, 2011 6:25am 9.8 FL N 7.4-10.4 Monocytes # (Auto) January 10, 2011 10:46am 0.8 X 10^3 N 0.0-1.0 Monocytes (%) (Auto) January 10, 2011 10:46am 7 % N 0-12 Myoglobin November 22, 2008 2:45pm 32 UG/ L N 10-92 Neutrophils # (Auto) January 10, 2011 10:46am 7.4 X 10^3 N 1.8-7.8 Neutrophils (%) (Auto) January 10, 2011 10:46am 66 % N 42-75 Platelet Count January 15, 2011 6:25am 227 10^3/uL N 130-400 Potassium Level January 15, 2011 6:25am 4.5 MMOL/L N 3.6-5.0 Prothromb Time International Ratio January 10, 2011 10: 46am 1.0 N 0.8-1.4 Prothrombin Time January 10, 2011 10:46am 13.3 SEC N 12.2-14.7 Red Blood Count January 15, 2011 6:25am 3.30 10^6/uL L 4.35-5.85 Red Cell Distribution Width January 15, 2011 6:25am 13.1 % N 10.0-14.5 Sodium Level January 15, 2011 6:25am 139 MMOL/L N 135-145 TSH Glynn Testing September 25, 2006 5:07pm 2.08 UIU/ML N 0.34-5.60 Thyroid Stimulating Hormone (TSH) June 04, 2009 5:25am 1.70 UIU/ML N 0.34- 5.60 Total Bilirubin January 15, 2011 6:25am 0.2 MG/DL N 0.0-1.0 Total Protein January 15, 2011 6:25am 6.8 G/DL N 6.4-8.2 Triglycerides Level November 24, 2009 4:49am 188 MG/DL H 30.0-150.0 Troponin I June 05, 2009 7:25am < 0.10 MG/ML 0.00-0.10 Uric Acid November 22, 2008 2:45pm 4.9 MG/ DL N 2.6-7.2 Urine Bacteria January 12, 2011 11:15am NEGATIVE - Urine Bilirubin January 12, 2011 11:15am NEGATIVE - Urine Casts January 12, 2011 11:15am NONE - Urine Clarity January 12, 2011 11:15am CLEAR - Urine Color January 12, 2011 11:15am YELLOW - Urine Crystals January 12, 2011 11:15am NONE - Urine Culture Indicated January 12, 2011 11:15am NO - Urine Glucose (UA) January 12, 2011 11:15am NEGATIVE - Urine Hyaline Casts November 22, 2009 9:15am 2-5 H - Urine Ketones January 12, 2011 11:15am NEGATIVE - Urine Leukocyte Esterase January 12, 2011 11:15am NEGATIVE - Urine Mucus January 12, 2011 11:15am NEGATIVE - Urine Nitrite January 12, 2011 11:15am NEGATIVE - Urine Test June 01, 2006 9:10am Negative - Urine Protein January 12, 2011 11:15am NEGATIVE - Urine RBC January 12, 2011 11:15am NONE /HPF - Urine Specific [place] January 12, 2011 11:15am 1.010 L - Urine Squamous Epithelial Cells January 12, 2011 11:15am 0-2 - Urine Urobilinogen January 12, 2011 11:15am NORMAL MG/DL - Urine WBC January 12, 2011 11:15am RARE /HPF - Urine pH January 12, 2011 11:15am 6.0 - VLDL Cholesterol November 24, 2009 4:49am 38 MG/DL N 5-40 White Blood Count January 15, 2011 6:25am 5.7 10^3/uL N 4.3-11.0 Lab Scanned Report June 02, 2009 4:45pm Referred Lab Report [id number] - Smear Scan May 24, 2006 11:10am Yes - Estimat Glomerular Filtration Rate January 10, 2011 10: 46am 21 - Creatine Kinase June 05, 2009 7:25am 32 mg/dl N 21-140 Cardiac Panel Pathologist Review June 04, 2009 6:59pm SEE CARDIAC PATH REV - Urine RBC (Auto) January 12, 2011 11:15am NEGATIVE - Procedures Procedure Code Date ASSIST VAG HYSTER(LAVH) 68.51 06/01/06 OTH REMOVE BOTH OVARIES/TUBES 65.61 06/01 CARPAL TUNNEL SURGERY [id number] 10/06/09 CARPAL TUNNEL SURGERY [id number] 07/21/10 ESOPHAGOGASTRODUODENOSCOPY [EGD] W/CLOSED BIOPSY 45.16 01/12/11 CLOSED ENDOSCOPIC BIOPSY OF LARGE INTESTINE 45.25 01/12/11 Encounters Encounter Location Date/Time Departed Emergency Room [facility] 13/03 10:39am Discharged Inpatient [facility] 2:05pm
--- OUTSIDE RECORDS SUMMARY | 2016-10-05 16:35 | XMS REPORT ---
Author Author ISABEL MAE Organization [employer] Address Unknown Phone Unavailable Care Team Providers Care Gel Coater Name Role Phone ISABEL MAE CP Unavailable Allergies No Known Allergies Problems Problem Type Condition Code Onset Dates Condition Status Problem Chronic kidney disease, stage 4 (severe) N18.4 Active Problem Functional 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 Active Problem History of colon polyps Z86.010 Active Problem Asthma with acute exacerbation in adult J45.901 Active Problem Dysuria R30.0 Active Problem Other seasonal allergic rhinitis J30.2 Active Problem Urinary problem R39.89 Active Problem Bowel habit changes R19.4 Active Problem History of anemia Z86.2 Active Problem Acute non-recurrent maxillary sinusitis J01.00 Active Problem Restless leg G25.81 Active Problem Depressed F32.9 Active Problem Dysthymic 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 Active Problem Generalized anxiety disorder F41.1 Active Problem Insomnia G47.00 Active Problem Hypothyroid E03.9 Active Problem Asthma J45.909 Active Problem Hypertension I10 Active Problem Palpitations R00.2 Active Problem Coronary artery disease involving [place] coronary artery of [place] heart, angina presence unspecified I25.10 Active Medications Medication Code System Code Instructions Start Date End Date Status Dosage Lyrica [facility] [address]-13 150 MG Orally 3 times a day 1 capsule Results No Known Results Summary Purpose eClinicalWorks Submission
--- OUTSIDE RECORDS SUMMARY | 2016-10-05 16:35 | XMS REPORT | Clinical Summary ---
Author Author Admin, QIE Organization [facility] Address Unknown Phone Unavailable Allergies, Adverse Reactions, Alerts Allergy Name Reaction Description Start Date Severity Status Provider No Known Allergies Jeniffer Elder Conditions or Problems Problem Name Problem Code Onset Date Status Entry Date Provider Comment Standard Description Annotate Incontinence, mixed, urge/stress 788.33 Active David Marcelino MD Mixed incontinence (female) (male) Medication List Medication Instructions Start Date Stop Date Generic Name NDC Status Provider Patient Instruction No Drug Therapy Prescribed - none known did ask Maryam Lewis RN VESICARE 10 MG TABS 1 pill by mouth daily for overactive bladder SOLIFENACIN SUCCINATE 36421743846 Active David Marcelino MD Active CYCLOBENZAPRINE HCL 10 MG TABS 1 tablet by mouth three times daily as needed for muscle spasm/pain CYCLOBENZAPRINE HCL 35644446677 Active David Marcelino MD Active EQ FIBER THERAPY 0.52 GM ORAL CAPS 1 cap by mouth three times daily PSYLLIUM 46181402405 Active David Marcelino MD Active FISH OIL CONCENTRATE 1000 MG ORAL CAPS 3 caps by mouth daily OMEGA-3 FATTY ACIDS 79191001791 Active David Marcelino MD Active VITAMIN D3 22968 UNIT ORAL TABS 1 cap by mouth monthly CHOLECALCIFEROL 10824276348 Active David Marcelino MD Active VITAMIN C PLUS 1000 MG ORAL TABS 2 tabs by mouth three times daily BIOFLAVONOID PRODUCTS 09349810193 Active David Marcelino MD Active TOPROL XL 50 MG ORAL [id number] 1 tab by mouth three times daily METOPROLOL SUCCINATE 28834369171 Active David Marcelino MD Active SYMBICORT 160-4.5 MCG/ACT AERO 2 puff BID BUDESONIDE-FORMOTEROL FUMARATE 10096015040 Active David Marcelino MD Active REQUIP 4 MG ORAL TABS 2 tabs by mouth daily ROPINIROLE HCL 13413454727 Active David Marcelino MD Active PROVENTIL HFA 108 (90 BASE) MCG/ACT INH AERS 2 inhaltions prn ALBUTEROL SULFATE 01824617145 Active David Marcelino MD Active PROTONIX 40 MG ORAL TBEC 1 po q a.m. PANTOPRAZOLE SODIUM 06388073922 Active David Marcelino MD Active NORVASC 10 MG TAB 1 tablet by mouth daily AMLODIPINE BESYLATE 62875328052 Active David Marcelino MD Active LYRICA 150 MG CAPS 1 tab by mouth 3 times daily PREGABALIN 67217967519 Active David Marcelino MD Active [place]AN POTASSIUM 100 MG TABS 1 pill by mouth daily, for blood pressure [place] POTASSIUM 48700689218 Active David Marcelino MD Active LEVOTHYROXINE SODIUM 125 MCG TABS 1 qDay LEVOTHYROXINE SODIUM 16373720106 Active David Marcelino MD Active LASIX 40 MG TAB 1 tablet by mouth daily FUROSEMIDE 76517227553 Active David Marcelino MD Active KLOR-CON M10 10 MEQ TBCR 1 tablet by mouth daily POTASSIUM CHLORIDE GI CR 92278006826 Active David Marcelino MD Active KLONOPIN 1 MG TAB 1 tab by mouth daily CLONAZEPAM 43474209444 Active David Marcelino MD Active VERAMYST 27.5 MCG/SPRAY NASAL SUSP 1 spray in nostril as needed FLUTICASONE FUROATE 79113117664 Active David Marcelino MD Active FERROUS SULFATE 325 (65 FE) MG TABS 1 tablet by mouth daily FERROUS SULFATE 75888121717 Active David Marcelino MD Active CYMBALTA 60 MG CPEP 1 cap by mouth daily DULOXETINE HCL 74309084131 Active David Marcelino MD Active CETIRIZINE HCL 10 MG ORAL TABS 1 po qd PRN Allergies CETIRIZINE HCL 50357983762 Active David Marcelino MD Active AMITRIPTYLINE HCL 25 MG TAB 1 tab by mouth daily at bedtime AMITRIPTYLINE HCL 74746048069 Active David Marcelino MD Active AMBIEN 5 MG TAB 1 po qHS PRN Insomnia ZOLPIDEM TARTRATE 38632181418 Active David Marcelino MD Active Vital Signs Date Name Value Unit Range Description blood pressure, diastolic - 8462-4 64 mm[Hg] BP montalvo blood pressure, systolic - 8480-6 115 mm[Hg] BP sys pulse rate E&M - 8867-4 78 /min Heart rate temperature E&M 98.7 [degF] Body temperature weight E&M - 3141-9 246.5 [lb_av] Weight Measured blood pressure, diastolic - 8462-4 56 mm[Hg] BP montalvo blood pressure, systolic - 8480-6 112 mm[Hg] BP sys pulse rate E&M - 8867-4 86 /min Heart rate temperature E&M 99.3 [degF] Body temperature weight E&M - 3141-9 246 [lb_av] Weight Measured blood pressure, diastolic - 8462-4 52 mm[Hg] [...] negative Encounters Code Encounter Date Provider Facility CPT-75998 Level 3 Est. Patient 21:05:34 [employer] David Marcelino MD [facility] CPT-95266 Level 4 New Patient 19:44:00 [employer] David Marcelino MD [facility] Procedures Code Procedure Name Date Entry Date Standard Description CPT-93710 Postop F/U Visit 20:37:06 [employer] CPT-88182 Postop F/U Visit 15:28:22 [employer]
--- OUTSIDE RECORDS SUMMARY | 2016-10-05 16:36 | XMS REPORT ---
Author Author KEIRA FORD [facility] [employer]Clinical[employer] Address Unknown Phone Unavailable Care Team Providers Care Clip Riveter Name Role Phone KEIRA FORD CP Unavailable Allergies No Known Allergies Problems Problem Type Condition Code Onset Dates Condition Status Problem Generalized anxiety disorder F41.1 Active Problem Depressed F32.9 Active Problem Restless leg G25.81 Active Problem Coronary artery disease involving [place] coronary artery of [place] heart, angina presence unspecified I25.10 Active Problem Hypertension I10 Active Problem Chronic kidney disease, stage 4 (severe) N18.4 Active Problem Palpitations R00.2 Active Problem Asthma J45.909 Active Problem Hypothyroid E03.9 Active Problem Insomnia G47.00 Active Assessment Generalized anxiety disorder F41.1 Active Assessment Dysthymic 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 Active Problem Dysthymic 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 Active Medications No Known Medications Procedures Procedure Coding System Code Date Psychotherapy, patient &/family, 30 minutes, established patient CPT-4 18414 Mar 10, 2015 Results No Known Results Summary Purpose eClinicalWorks Submission
--- OUTSIDE RECORDS SUMMARY | 2016-10-05 16:36 | XMS REPORT ---
Author Author BUTCH NAM Organization [employer] Address Unknown Phone Unavailable Care Team Providers Care Scratch Brusher Name Role Phone BUTCH NAM CP Unavailable Allergies No Known Allergies Problems Problem Type Condition Code Onset Dates Condition Status Problem Generalized anxiety disorder F41.1 Active Problem Depressed F32.9 Active Problem Restless leg G25.81 Active Assessment Kidney disease N28.9 Active Problem Dysthymic 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 Active Problem Coronary artery disease involving [place] coronary artery of [place] heart, angina presence unspecified I25.10 Active Problem Hypertension I10 Active Problem Chronic kidney disease, stage 4 (severe) N18.4 Active Problem Palpitations R00.2 Active Problem Asthma J45.909 Active Problem Hypothyroid E03.9 Active Problem Insomnia G47.00 Active Medications No Known Medications Results No Known Results Summary Purpose eClinicalWorks Submission
--- OUTSIDE RECORDS SUMMARY | 2016-10-05 16:36 | XMS REPORT ---
Author Author ISABEL MAE Organization [employer] Address Unknown Phone Unavailable Care Team Providers Care Automobile Upholsterer Apprentice Name Role Phone ISABEL MAE CP Unavailable Allergies No Known Allergies Problems Problem Type Condition Code Onset Dates Condition Status Problem Urinary problem R39.89 Active Problem History of anemia Z86.2 Active Problem Acute non-recurrent maxillary sinusitis J01.00 Active Problem Dyspepsia R10.13 Active Problem Depressed F32.9 Active Problem Yeast dermatitis B37.2 Active Problem Restless leg G25.81 Active Problem Generalized anxiety disorder F41.1 Active Problem Chronic kidney disease, stage IV (severe) N18.4 Active Problem Asthma with acute exacerbation in adult J45.901 Active Problem Dysuria R30.0 Active Problem Hypokalemia E87.6 Active Problem Other seasonal allergic rhinitis J30.2 Active Problem Insomnia G47.00 Active Problem Hypothyroid E03.9 Active Problem Asthma J45.909 Active Problem Palpitations R00.2 Active Problem Chronic kidney disease, stage 4 (severe) N18.4 Active Problem History of colon polyps Z86.010 Active Problem Hypertension I10 Active Problem Functional 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 Active Problem Dysthymic 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 Active Problem Coronary artery disease involving [place] coronary artery of [place] heart, angina presence unspecified I25.10 Active Problem Bowel habit changes R19.4 Active Medications No Known Medications Results No Known Results Summary Purpose eClinicalWorks Submission
--- OUTSIDE RECORDS SUMMARY | 2016-10-05 16:36 | XMS REPORT ---
Author Author KEIRA FORD [facility] eClinicalWorks Address Unknown Phone Unavailable Care Team Providers Care Applied Technologist Name Role Phone KEIRA FORD CP Unavailable Allergies No Known Allergies Problems Problem Type Condition ICD-9 Code Onset Dates Condition Status Problem Generalized anxiety disorder 300.02 Active Problem Chronic kidney disease, 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.4 Active Problem Female stress incontinence 625.6 Active Problem Hypertension 401.9 Active Assessment Generalized anxiety disorder 300.02 Active Problem Unspecified cardiac dysrhythmia 427.9 Active Problem CAD (coronary artery disease) 414.00 Active Problem Insomnia, unspecified 780.52 Active Problem Depressive disorder, not elsewhere classified 311 Active Problem Edema 782.3 Active Problem Adjustment disorder with anxiety 309.24 Active Problem Palpitations 785.1 Active Problem Asthma, unspecified, unspecified status 493.90 Active Assessment Depressive disorder, not elsewhere classified 311 Active Problem Coronary atherosclerosis of unspecified type of vessel, [place] or graft 414.00 Active Problem Anxiety state, unspecified 300.00 Active Problem Closed fracture of lateral malleolus 824.2 Active Problem 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
--- OUTSIDE RECORDS SUMMARY | 2016-10-05 16:36 | XMS REPORT ---
Author Author ISABEL MAE Organization [facility] Address [address] [place] [address] Care Team Providers Care Silo Man Name Role Phone CHARLYAmy ISABEL Unavailable PROBLEMS Type Condition ICD9-CM Code JIO78-TR Code Onset Dates Condition Status SNOMED Code Problem Urinary problem R39.89 Active 128811626 Problem History of anemia Z86.2 Active 689952883 Problem Acute non-recurrent maxillary sinusitis J01.00 Active 22787308 Problem Dyspepsia R10.13 Active 039891135 Problem Restless leg G25.81 Active 82717152 Problem Yeast dermatitis B37.2 Active 43971491 Problem Generalized anxiety disorder F41.1 Active 07280996 Problem Dysthymic 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 Active 54385451 Problem Asthma with acute exacerbation in adult J45.901 Active 609538833 Problem Dysuria R30.0 Active 51996079 Problem Hypokalemia E87.6 Active 49911485 Problem Other seasonal allergic rhinitis J30.2 Active 645038724 Problem Palpitations R00.2 Active 48395063 Problem Insomnia G47.00 Active 356449441 Problem Depressed F32.9 Active 71655620 Problem Asthma J45.909 Active 967041250 Problem Chronic kidney disease, stage 4 (severe) N18.4 Active 011258660 Problem History of colon polyps Z86.010 Active 679334280 Problem Hypothyroid E03.9 Active 43962655 Problem Functional 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 Active 75178893 Problem Coronary artery disease involving [place] coronary artery of [place] heart, angina presence unspecified I25.10 Active 7522841580965 Problem Bowel habit changes R19.4 Active 73863741 ALLERGIES Unknown Allergies SOCIAL HISTORY No smoking Hx information available PLAN OF CARE VITAL SIGNS MEDICATIONS Medication Instructions Dosage Frequency Start Date End Date Duration Status Lyrica 150 MG Orally 3 times a day 1 capsule 8h Active RESULTS No Results PROCEDURES No Known procedures IMMUNIZATIONS No Known Immunizations
--- OUTSIDE RECORDS SUMMARY | 2016-10-05 16:36 | XMS REPORT ---
Author Author ISABEL MAE Organization [employer]Works Address Unknown Phone Unavailable Care Team Providers Care Hotel Engineer Name Role Phone ISABEL MAE CP Unavailable Allergies No Known Allergies Problems Problem Type Condition Code Onset Dates Condition Status Problem Functional 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 Active Assessment Chronic kidney disease, stage 4 (severe) N18.4 Active Problem Bowel habit changes R19.4 Active Problem Dysthymic 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 Active Problem Urinary problem R39.89 Active Problem History of anemia Z86.2 Active Problem Acute non-recurrent maxillary sinusitis J01.00 Active Problem Dyspepsia R10.13 Active Problem Yeast dermatitis B37.2 Active Problem Depressed F32.9 Active Problem Restless leg G25.81 Active Problem Chronic kidney disease, stage IV (severe) N18.4 Active Problem Generalized anxiety disorder F41.1 Active Problem Asthma with acute exacerbation in adult J45.901 Active Problem Dysuria R30.0 Active Problem Hypokalemia E87.6 Active Problem Other seasonal allergic rhinitis J30.2 Active Problem Insomnia G47.00 Active Problem Hypothyroid E03.9 Active Problem Asthma J45.909 Active Problem Palpitations R00.2 Active Problem Chronic kidney disease, stage 4 (severe) N18.4 Active Problem History of colon polyps Z86.010 Active Problem Hypertension I10 Active Problem Coronary artery disease involving [place] coronary artery of [place] heart, angina presence unspecified I25.10 Active Medications No Known Medications Procedures Procedure Coding System Code Date URINALYSIS, AUTO, W/O SCOPE CPT-4 34452 Feb 17, 2016 LAB [facility] CPT-4 NOBLL Feb 17, 2016 VENIPUNCT, ROUTINE* CPT-4 68026 Feb 17, 2016 Results Name Result Date Reference Range Unit Abnormality Flag ROUTINE VENIPUNCTURE UA LONG DIP (IN HOUSE) ----TAMIKO negative 20160217 ----GLU Negative 20160217 ----SG 1.025 20160217 ----KET negative 20160217 ----pH 6.0 20160217 ----Protein negative 20160217 ----BLO negative 20160217 ----NATO negative 20160217 ----Color yellow 20160217 ----Odor no 20160217 ----Exp date 20160217 ----URO 0.2 20160217 ----NIT negative 20160217 ----Clarity clear 20160217 ----Lot # [id number] Summary Purpose eClinicalWorks Submission
--- OUTSIDE RECORDS SUMMARY | 2016-10-05 16:36 | XMS REPORT ---
Author Author ISABEL MAE Organization [employer] Address Unknown Phone Unavailable Care Team Providers Care Semiconductor Packages Tester Name Role Phone ISABLE MAE CP Unavailable Allergies No Known Allergies Problems Problem Type Condition Code Onset Dates Condition Status Problem Chronic kidney disease, stage 4 (severe) N18.4 Active Problem Functional 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 Active Problem History of colon polyps Z86.010 Active Problem Asthma with acute exacerbation in adult J45.901 Active Assessment Urgency of urination R39.15 Active Problem Dysuria R30.0 Active Problem Other [...] R00.2 Active Problem Coronary artery disease involving [place] coronary artery of [place] heart, angina presence unspecified I25.10 Active Medications No Known Medications Procedures Procedure Coding System Code Date URINE CULTURE/COLONY COUNT CPT-4 35313 Nov 24, 2015 URINALYSIS, AUTO, W/O SCOPE CPT-4 38789 Nov 24, 2015 Results No Known Results Summary Purpose eClinicalWorks Submission
--- OUTSIDE RECORDS SUMMARY | 2016-10-05 16:36 | XMS REPORT ---
Author Author ISABEL MAE [facility] eClinicalWorks Address Unknown Phone Unavailable Care Team Providers Care Manager Equipment Name Role Phone ISABEL MAE CP Unavailable Allergies, Adverse Reactions, Alerts Substance Reaction Event Type N.K.D.A. Info Not Available Non Drug Allergy Problems Problem Type Condition Code Onset Dates Condition Status Problem Generalized anxiety disorder F41.1 Active Problem Depressed F32.9 Active Problem Restless leg G25.81 Active Problem Coronary artery disease involving [place] coronary artery of [place] heart, angina presence unspecified I25.10 Active Problem Hypertension I10 Active Problem Chronic kidney disease, stage 4 (severe) N18.4 Active Problem Palpitations R00.2 Active Problem Asthma J45.909 Active Problem Hypothyroid E03.9 Active Problem Insomnia G47.00 Active Assessment Nausea & vomiting R11.2 Active Assessment Chronic kidney disease, stage 4 (severe) N18.4 Active Assessment Dehydration E86.0 Active Problem Dysthymic 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 Active Medications Medication Code System Code Instructions Start Date End Date Status Dosage Toprol XL [facility] [address]-36 50 MG Orally 3 times a day 1 tablet [address]urosemide [facility] [address]-85 40 MG Orally every other day 1 [address]itor [facility] [address]-06 20 MG Orally Once a day 1 tablet Potassium Chloride ER [facility] 14160990877 10 MEQ TAKE ONE CAPSULE BY MOUTH DAILY Symbicort [facility] [address]-17 160-4.5 MCG/ACT Inhalation Twice a day 2 puffs Requip [facility] [address]-26 4 MG Orally do not fill in er Once a day 2 tablets 1 to 3 hours before bedtime Vitamin C Gummie [facility] 9[address]16-45126 120 MG Orally not defined Synthroid [facility] [address]-82 125 MCG Orally Once a day 1 tablet Cetirizine HCl [facility] [address]-70 10 MG Orally Once a day 1 tablet Amitriptyline HCl [facility] [address]-74 150 MG Orally Once a day 1 tablet at bedtime Norvasc [facility] [address]-08 10 Orally Once a day 1 tablet Cholecalciferol [facility] 78764-21508 15748 UNIT Orally every month [address]ero[address] [facility] [address]-01 100 MG Orally Once a day- 2 tablet at bedtime Zofran ODT [facility] [address]-98 4 MG Orally every 8 hrs prn Mar 23, 2015 1 tablet on the tongue and allow to dissolve Losartan Potassium [facility] 56454864407 100 MG TAKE ONE TABLET BY MOUTH DAILY Iron [facility] [address]8924-[address]55 325 (65 Fe) MG Orally 3 times a day [address]iacin [facility] [address]-89 500 MG Orally Once a day 1 capsule Multivitamin Gummies Adult [facility] 82539-95140 Orally not defined Protonix [facility] [address]-25 40 MG TAKE ONE TABLET BY MOUTH DAILY Lyrica [facility] [address]-59 150 MG Orally 3 times a day 1 capsule Effexor XR [facility] [address]-62 150 MG Orally Once a day 1 capsule with food Lidoderm [facility] [address]-82 5 %(700 mg/patch) Jan 17, 2013 1 PATCH by Topical route 1 time per day (remove patch(s) after 12 hours) BusPIRone HCl [facility] [address]-15 7.5 MG Orally Twice a day prn Feb 04, 2015 1 tablet Procedures Procedure Coding System Code Date Office Visit, Est Pt., Level 2 CPT-4 49112 Mar 25, 2015 Vital Signs Date/Time: Mar 25, 2015 Temperature 98.9 F Weight 256.4 lbs Height 63 in BMI 45.41 Index Blood Pressure Diastolic 86 mmHg Blood Pressure Systolic 158 mmHg Cardiac Monitoring Heart Rate 92 bpm Results No Known Results Summary Purpose eClinicalWorks Submission
--- OUTSIDE RECORDS SUMMARY | 2016-10-05 16:36 | XMS REPORT ---
Author Author ISABEL MAE [facility] eClinicalWorks Address Unknown Phone Unavailable Care Team Providers Care Sprinkler Driver Name Role Phone ISABEL MAE CP Unavailable Allergies, Adverse Reactions, Alerts Substance Reaction Event Type N.K.D.A. Info Not Available Non Drug Allergy Problems Problem Type Condition Code Onset Dates Condition Status Problem Generalized anxiety disorder F41.1 Active Problem Depressed F32.9 Active Problem Restless leg G25.81 Active Problem Coronary artery disease involving [place] coronary artery of [place] heart, angina presence unspecified I25.10 Active Assessment Restless leg G25.81 Active Problem Hypertension I10 Active Assessment Anxiety F41.9 Active Problem Chronic kidney disease, stage 4 (severe) N18.4 Active Problem Palpitations R00.2 Active Problem Asthma J45.909 Active Problem Hypothyroid E03.9 Active Problem Insomnia G47.00 Active Assessment Insomnia G47.00 Active Assessment Vitamin D deficiency E55.9 Active Assessment Depressed F32.9 Active Assessment Palpitations R00.2 Active Assessment Coronary artery disease involving [place] coronary artery of [place] heart, angina presence unspecified I25.10 Active Assessment Asthma J45.909 Active Assessment Hypothyroid E03.9 Active Assessment UTI (urinary tract infection) N39.0 Active Assessment Hypertension I10 Active Problem Dysthymic 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 Active Medications Medication Code System Code Instructions Start Date End Date Status Dosage Lyrica [facility] [address]-86 150 MG Orally 3 times a day 1 capsule Cholecalciferol [facility] 70922[address] 96045 UNIT Orally every month 1 capsule Symbicort [facility] [address]-55 160-4.5 MCG/ACT Inhalation Twice a day 2 puffs Detrol LA [facility] [address]-29 4 MG Orally Once a day 1 capsule Synthroid [facility] [address]-83 125 MCG Orally Once a day 1 tablet Lipitor [facility] [address]-06 20 MG Orally Once a day 1 tablet BusPIRone HCl [facility] [address]-91 7.5 MG Orally Twice a day prn Feb 04, 2015 1 tablet Norvasc [facility] [address]-96 10 Orally Once a day 1 tablet Protonix [facility] [address]-40 40 MG TAKE ONE TABLET BY MOUTH DAILY Toprol XL [facility] [address]-96 50 MG Orally 3 times a day 1 tablet Vitamin C Gummie [facility] 94499-47296 120 MG Orally not defined Furosemide [facility] [address]-63 40 MG Orally every other day 1 tablet Iron [facility] 12589-[address]08 325 (65 Fe) MG Orally 3 times a day 1 tablet Requip [facility] [address]-99 4 MG Orally do not fill in er Once a day 2 tablets 1 to 3 hours before bedtime Seroquel [facility] [address]-45 100 MG Orally Once a day- 2 tablet at bedtime Cetirizine HCl [facility] [address]-59 10 MG Orally Once a day 1 tablet Potassium Chloride ER [facility] [address]-73 10 MEQ Orally every other day Feb 04, 2015 1 tablet Lidoderm [facility] [address]-43 5 %(700 mg/patch) Jan 17, 2013 1 PATCH by Topical route 1 time per day (remove patch(s) after 12 hours) Niacin ER [facility] [address]-24 500 MG Orally Once a day Feb 04, 2015 Mar 06, 2015 1 capsule Effexor XR [facility] [address]-73 150 MG Orally Once a day 1 capsule with food Niacin [facility] [address]-43 500 MG Orally Once a day 1 capsule Multivitamin Gummies Adult [facility] 63618-92233 Orally not defined Cipro [facility] [address]-99 250 MG Orally every 12 hrs Feb 04, 2015 Feb 11, 2015 1 tablet Amitriptyline HCl [facility] [address]-03 150 MG Orally Once a day 1 tablet at bedtime Losartan Potassium [facility] [address]-80 100 MG Orally Once a day 1 tablet Procedures Procedure Coding System Code Date Office Visit, Est Pt., Level 4 CPT-4 12374 Feb 04, 2015 Vital Signs Date/Time: Feb 04, 2015 Temperature 98.5 F Weight 274.8 lbs Height 63 in BMI 48.67 Index Blood Pressure Diastolic 72 mmHg Blood Pressure Systolic 110 mmHg Cardiac Monitoring Heart Rate 80 bpm Results No Known Results Summary Purpose eClinicalWorks Submission
--- OUTSIDE RECORDS SUMMARY | 2016-10-05 16:36 | XMS REPORT ---
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
--- OUTSIDE RECORDS SUMMARY | 2016-10-05 16:37 | XMS REPORT ---
Author Author ISABEL MAE Organization [employer] Address Unknown Phone Unavailable Care Team Providers Care Brownfield Redevelopment Site Manager Name Role Phone ISABEL MAE CP Unavailable Allergies No Known Allergies Problems Problem Type Condition Code Onset Dates Condition Status Problem Generalized anxiety disorder F41.1 Active Problem Depressed F32.9 Active Problem Restless leg G25.81 Active Problem Dysthymic 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 Active Problem Coronary artery disease involving [place] coronary artery of [place] heart, angina presence unspecified I25.10 Active Problem Hypertension I10 Active Problem Chronic kidney disease, stage 4 (severe) N18.4 Active Problem Palpitations R00.2 Active Problem Asthma J45.909 Active Problem Hypothyroid E03.9 Active Problem Insomnia G47.00 Active Medications No Known Medications Results No Known Results Summary Purpose eClinicalWorks Submission
--- OUTSIDE RECORDS SUMMARY | 2016-10-05 16:37 | XMS REPORT ---
Author MAKSIM Hodge [facility] eClinicalWorks Address Unknown Phone Unavailable Care Team Providers Care Manager User Interface Name Role Phone MAKSIM CORLEY CP Unavailable Allergies, Adverse Reactions, Alerts Substance Reaction Event Type N.K.D.A. Info Not Available Non Drug Allergy Problems Problem Type Condition Code Onset Dates Condition Status Problem Chronic kidney disease, stage 4 (severe) N18.4 Active Problem Functional 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 Active Problem History of colon polyps Z86.010 Active Problem Asthma with acute exacerbation in adult J45.901 Active Assessment Dysuria R30.0 Active Problem Dysuria R30.0 Active Assessment Stress incontinence N39.3 Active Problem Other seasonal allergic rhinitis J30.2 [...] R00.2 Active Problem Coronary artery disease involving [place] coronary artery of [place] heart, angina presence unspecified I25.10 Active Medications Medication Code System Code Instructions Start Date End Date Status Dosage Multivitamin Gummies Adult [facility] 680[address] Orally not defined Synthroid [facility] [address]-14 125 mcg Orally Once a day 1 tablet Toprol XL [facility] [address]-72 50 mg Orally 3 times a day 1 tablet Losartan Potassium [facility] 79822913901 100 MG Orally Once a day 1 tablet Fish Oil [facility] [address]-78 1000 MG Orally Once a day 1 capsule Cetirizine HCl [facility] [address]-09 10 MG Orally Once a day 1 tablet Furosemide [facility] [address]-04 40 mg Orally Once a day MUST HAVE LABS FOR REFILL 1 tablet Cholecalciferol [facility] [address] 73585 UNIT Orally every month 1 capsule Norvasc [facility] [address]-88 10 Orally Once a day 1 tablet Zolpidem Tartrate [facility] 68740355756 5 MG TAKE ONE TABLET BY MOUTH AT BEDTIME Cymbalta [facility] 40932814699 60 MG Orally Once a day 1 capsule ProAir HFA [facility] [address]-31 108 (90 Base) MCG/ACT Inhalation every 4 hrs September 30, 2015 2 puffs as needed Fluticasone Propionate [facility] 48358693504 50 MCG/ACT USE ONE SPRAY IN EACH NOSTRIL TWICE DAILY Protonix [facility] [address]-55 40 MG TAKE ONE TABLET BY MOUTH ONCE DAILY Acidophilus [facility] [address]-71 Orally not defined Vitamin C Gummie [facility] 47569-00463 120 MG Orally not defined Lyrica [facility] [address]-61 150 MG Orally 3 times a day 1 capsule Macrobid [facility] [address]-35 100 MG Orally every 12 hrs Dec 14, 2015Dec 1 capsule with food Pyridium [facility] [address]-99 200 mg Orally Three times a day prn bladder pain Dec 14, 2015 Dec 17, 2015 1 tablet after meals Iron [facility] [address]4613-[address]20 325 (65 Fe) MG Orally 3 times a day 1 tablet Ropinirole HCl [facility] [address]-21 4 MG TAKE TWO TABLETS BY MOUTH 1 TO 3 HOURS BEFORE BEDTIME Estradiol [facility] [address]-02 0.5 MG Vaginal Once a day at HS x 14 days, then 3 times per week Dec 14, 2015 1 tablet Klonopin [facility] [address]-15 1 MG Orally Twice a day August 02, 2015 1 tablet Symbicort [facility] [address]-10 160-4.5 MCG/ACT Inhalation Twice a day 2 puffs Amitriptyline HCl [facility] [address]-08 150 MG Orally Once a day 1 tablet at bedtime Potassium Chloride ER [facility] 13248011218 10 MEQ Orally Once a day 1 capsule with food Procedures Procedure Coding System Code Date URINE CULTURE/COLONY COUNT CPT-4 91955 Dec 14, 2015 Office Visit, Est Pt., Level 3 CPT-4 47613 Dec 14, 2015 URINALYSIS, AUTO, W/O SCOPE CPT-4 59587 Dec 14, 2015 Vital Signs Date/Time: Dec 14, 2015 Cardiac Monitoring Heart Rate 80 bpm Weight 236.4 lbs Height 63 in BMI 41.87 Index Blood Pressure Diastolic 88 mmHg Blood Pressure Systolic 128 mmHg Results No Known Results Summary Purpose eClinicalWorks Submission
--- OUTSIDE RECORDS SUMMARY | 2016-10-05 16:37 | XMS REPORT | Clinical Summary ---
Author Author Admin, QIE Organization [facility] Address Unknown Phone Unavailable Allergies, Adverse Reactions, [...] mouth daily for overactive bladder SOLIFENACIN SUCCINATE 38839840223 Active David Marcelino MD Active CYCLOBENZAPRINE HCL 10 MG TABS 1 tablet by mouth three times daily as needed for muscle spasm/pain CYCLOBENZAPRINE HCL 65719752423 Active David Marcelino MD Active EQ FIBER THERAPY 0.52 GM ORAL CAPS 1 cap by mouth three times daily PSYLLIUM 90402211063 Active David Marcelino MD Active FISH OIL CONCENTRATE 1000 MG ORAL CAPS 3 caps by mouth daily OMEGA-3 FATTY ACIDS 11886817437 Active David Marcelino MD Active VITAMIN D3 17250 UNIT ORAL TABS 1 cap by mouth monthly CHOLECALCIFEROL 90654567250 Active David Marcelino MD Active VITAMIN C PLUS 1000 MG ORAL TABS 2 tabs by mouth three times daily BIOFLAVONOID PRODUCTS 57609637570 Active David Marcelino MD Active TOPROL XL 50 MG ORAL [id number] 1 tab by mouth three times daily METOPROLOL SUCCINATE 90477101769 Active David Marcelino MD Active SYMBICORT 160-4.5 MCG/ACT AERO 2 puff BID BUDESONIDE-FORMOTEROL FUMARATE 98987698082 Active David Marcelino MD Active REQUIP 4 MG ORAL TABS 2 tabs by mouth daily ROPINIROLE HCL 99846534792 Active David Marcelino MD Active PROVENTIL HFA 108 (90 BASE) MCG/ACT INH AERS 2 inhaltions prn ALBUTEROL SULFATE 57252637319 Active David Marcelino MD Active PROTONIX 40 MG ORAL TBEC 1 po q a.m. PANTOPRAZOLE SODIUM 51627126500 Active David Marcelino MD Active NORVASC 10 MG TAB 1 tablet by mouth daily AMLODIPINE BESYLATE 03040249049 Active David Marcelino MD Active LYRICA 150 MG CAPS 1 tab by mouth 3 times daily PREGABALIN 55182865873 Active David Marcelino MD Active LOSARTAN POTASSIUM 100 MG TABS 1 pill by mouth daily, for blood pressure [place]ARTAN POTASSIUM 68548042754 Active David Marcelino MD Active LEVOTHYROXINE SODIUM 125 MCG TABS 1 qDay LEVOTHYROXINE SODIUM 11134724499 Active David Marcelino MD Active LASIX 40 MG TAB 1 tablet by mouth daily FUROSEMIDE 20138864519 Active David Marcelino MD Active KLOR-CON M10 10 MEQ TBCR 1 tablet by mouth daily POTASSIUM CHLORIDE GI CR 43790073588 Active David Marcelino MD Active KLONOPIN 1 MG TAB 1 tab by mouth daily CLONAZEPAM 06433752909 Active David Marcelino MD Active VERAMYST 27.5 MCG/SPRAY NASAL SUSP 1 spray in nostril as needed FLUTICASONE FUROATE 22386096400 Active David Marcelino MD Active FERROUS SULFATE 325 (65 FE) MG TABS 1 tablet by mouth daily FERROUS SULFATE 60754601212 Active David Marcelino MD Active CYMBALTA 60 MG CPEP 1 cap by mouth daily DULOXETINE HCL 22507629672 Active David Marcelino MD Active CETIRIZINE HCL 10 MG ORAL TABS 1 po qd PRN Allergies CETIRIZINE HCL 06262521594 Active David Marcelino MD Active AMITRIPTYLINE HCL 25 MG TAB 1 tab by mouth daily at bedtime AMITRIPTYLINE HCL 99210563994 Active David Marcelino MD Active AMBIEN 5 MG TAB 1 po qHS PRN Insomnia ZOLPIDEM TARTRATE 95572396351 Active David Marcelino MD Active Vital Signs [...] negative Encounters Code Encounter Date Provider Facility CPT-09003 Level 3 Est. Patient 21:05:34 CASHIER MANAGER David Marcelino MD [facility] CPT-43611 Level 4 New Patient 19:44:00 CASHIER MANAGER David Marcelino MD [facility] Procedures Code Procedure Name Date Entry Date Standard Description CPT-51503 Postop F/U Visit 20:37:06 CASHIER MANAGER CPT-70030 Postop F/U Visit 15:28:22 CASHIER MANAGER
--- OUTSIDE RECORDS SUMMARY | 2016-10-05 16:38 | XMS REPORT ---
Author Author CRUZ ARENAS Organization eClinicalWorks Address Unknown Phone Unavailable Care Team Providers Care Weatherization Crew Leader Name Role Phone CRUZ ARENAS CP Unavailable Allergies, Adverse Reactions, Alerts Substance Reaction Event Type N.K.D.A. Info Not Available Non Drug Allergy Problems Problem Type Condition Code Onset Dates Condition Status Problem Generalized anxiety disorder F41.1 Active Problem Depressed F32.9 Active Problem Restless leg G25.81 Active Assessment Gastroenteritis K52.9 Active Problem Dysthymic 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 Active Problem Coronary artery disease involving [place] coronary artery of [place] heart, angina presence unspecified I25.10 Active Problem Hypertension I10 Active Problem Chronic kidney disease, stage 4 (severe) N18.4 Active Problem Palpitations R00.2 Active Problem Asthma J45.909 Active Problem Hypothyroid E03.9 Active Problem Insomnia G47.00 Active Medications Medication Code System Code Instructions Start Date End Date Status Dosage Multivitamin Gummies Adult [facility] [address] Orally not defined Potassium Chloride ER [facility] 06164610046 10 MEQ TAKE ONE CAPSULE BY MOUTH DAILY Zofran ODT [facility] [address]-97 4 MG Orally every 8 hrs prn Mar 23, 2015 1 tablet on the tongue and allow to dissolve Vitamin C Gummie [facility] [address]75 120 MG Orally not defined Amitriptyline HCl [facility] [address]-30 150 MG Orally Once a day 1 tablet at bedtime Effexor XR [facility] [address]-44 150 MG Orally Once a day 1 capsule with food Lidoderm [facility] [address]-14 5 %(700 mg/patch) Jan 17, 2013 1 PATCH by Topical route 1 time per day (remove patch(s) after 12 hours) Furosemide [facility] [address]-82 40 MG Orally every other day 1 tablet Losartan Potassium [facility] 89162200328 100 MG TAKE ONE TABLET BY MOUTH DAILY Cholecalciferol [facility] [address] 49869 UNIT Orally every month 1 capsule Lyrica [facility] [address]-36 150 MG Orally 3 times a day 1 capsule Synthroid [facility] [address]-09 125 MCG Orally Once a day 1 tablet Norvasc [facility] [address]-05 10 Orally Once a day 1 tablet Iron [facility] [address]1147[address]52 325 (65 Fe) MG Orally 3 times a day 1 tablet Lipitor [facility] [address]-60 20 MG Orally Once a day 1 tablet Seroquel [facility] [address]-29 100 MG Orally Once a day- 2 tablet at bedtime Requip [facility] [address]-44 4 MG Orally do not fill in er Once a day 2 tablets 1 to 3 hours before bedtime Niacin [facility] [address]-00 500 MG Orally Once a day 1 capsule Symbicort [facility] [address]-87 160-4.5 MCG/ACT Inhalation Twice a day 2 puffs Protonix [facility] [address]-35 40 MG TAKE ONE TABLET BY MOUTH DAILY BusPIRone HCl [facility] [address]-61 7.5 MG Orally Twice a day prn Feb 04, 2015 1 tablet Toprol XL [facility] [address]-85 50 MG Orally 3 times a day 1 tablet Cetirizine HCl [facility] [address]-91 10 MG Orally Once a day 1 tablet Procedures Procedure Coding System Code Date Office Visit, Est Pt., Level 3 CPT-4 56263 Mar 23, 2015 Vital Signs Date/Time: Mar 23, 2015 Temperature 98.1 F Weight 260 lbs Height 63 in BMI 46.05 Index Blood Pressure Diastolic 90 mmHg Blood Pressure Systolic 164 mmHg Cardiac Monitoring Heart Rate 90 bpm Results No Known Results Summary Purpose eClinicalWorks Submission
--- OUTSIDE RECORDS SUMMARY | 2016-10-05 16:38 | XMS REPORT ---
Author Author ISABEL MAE [facility] eClinicalWorks Address Unknown Phone Unavailable Care Team Providers Care Certified Substance Abuse Counselor Name Role Phone ISABEL MAE CP Unavailable Allergies, Adverse Reactions, Alerts Substance Reaction Event Type N.K.D.A. Info Not Available Non Drug Allergy Problems Problem Type Condition Code Onset Dates Condition Status Assessment Other seasonal allergic rhinitis J30.2 Active Assessment Functional 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 Active Problem Hypertension I10 Active Assessment Right foot pain M79.671 Active Problem Coronary artery disease involving [place] coronary artery of [place] heart, angina presence unspecified I25.10 Active Assessment Hypothyroid E03.9 Active Problem Chronic kidney disease, stage 4 (severe) N18.4 Active Problem Functional 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 Active Problem History of colon polyps Z86.010 Active Problem Asthma with acute exacerbation in adult J45.901 Active Problem Dysuria R30.0 Active Assessment Hypertension I10 Active Assessment Coronary artery disease involving [place] coronary artery of [place] heart, angina presence unspecified I25.10 Active Problem Other seasonal allergic rhinitis J30.2 Active Assessment Palpitations R00.2 Active Problem Urinary problem R39.89 Active Problem Bowel habit changes R19.4 Active Problem History of anemia Z86.2 Active Problem Acute non-recurrent maxillary sinusitis J01.00 Active Problem Restless leg G25.81 Active Problem Depressed F32.9 Active Problem Dysthymic 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 Active Problem Generalized anxiety disorder F41.1 Active Problem Insomnia G47.00 Active Problem Hypothyroid E03.9 Active Problem Asthma J45.909 Active Problem Palpitations R00.2 Active Medications Medication Code System Code Instructions Start Date End Date Status Dosage Vitamin C Gummie [facility] [address]-47[address] 120 MG Orally not defined Acidophilus [facility] [address]-60 Orally not defined Cetirizine HCl [facility] [address]-59 10 MG Orally Once a day 1 tablet Zolpidem Tartrate [facility] 19005915633 5 MG TAKE ONE TABLET BY MOUTH AT BEDTIME Amitriptyline HCl [facility] [address]-04 150 MG Orally Once a day 1 tablet at bedtime Furosemide [facility] [address]-69 40 MG Orally every other day 1 tablet Ropinirole HCl [facility] [address]-44 4 MG TAKE TWO TABLETS BY MOUTH 1 TO 3 HOURS BEFORE BEDTIME Synthroid [facility] [address]-87 125 mcg Orally Once a day 1 tablet Iron [facility] 67725-60536 325 (65 Fe) MG Orally 3 times a day 1 tablet Potassium Chloride ER [facility] 55903208730 10 MEQ Orally Once a day 1 capsule with food Fluticasone Propionate [facility] 97320789410 50 MCG/ACT USE ONE SPRAY IN EACH NOSTRIL TWICE DAILY PredniSONE [facility] [address]-03 10 mg Orally twice a day November 02, 2015 November 07, 2015 1 tablet ProAir HFA [facility] [address]-35 108 (90 Base) MCG/ACT Inhalation every 4 hrs September 30, 2015 2 puffs as needed Lyrica [facility] [address]-53 150 MG Orally 3 times a day 1 capsule Fish Oil [facility] [address]-24 1000 MG Orally Once a day 1 capsule Cholecalciferol [facility] 58937-[address]82 31388 UNIT Orally every month 1 capsule Norvasc [facility] [address]-01 10 Orally Once a day 1 tablet Losartan Potassium [facility] 26577066948 100 MG Orally Once a day 1 tablet Protonix [facility] [address]-54 40 MG TAKE ONE TABLET BY MOUTH DAILY Cymbalta [facility] 86019037777 60 MG Orally Once a day 1 capsule Symbicort [facility] [address]-26 160-4.5 MCG/ACT Inhalation Twice a day 2 puffs Multivitamin Gummies Adult [facility] 548[address] Orally not defined Toprol XL [facility] [address]-67 50 mg Orally 3 times a day 1 tablet Klonopin [facility] [address]-69 1 MG Orally Twice a day August 02, 2015 1 tablet Procedures Procedure Coding System Code Date COMPREHEN METABOLIC PANEL CPT-4 12627 November 02, 2015 X-RAY EXAM OF FOOT CPT-4 35753 November 02, 2015 ASSAY THYROID STIM HORMONE CPT-4 80683 November 02, 2015 VENIPUNCT, ROUTINE* CPT-4 46206 November 02, 2015 Office Visit, Est Pt., Level 4 CPT-4 63570 November 02, 2015 Vital Signs Date/Time: November 02, 2015 Cardiac Monitoring Heart Rate 84 bpm Weight 243.6 lbs Height 63 in Blood Pressure Diastolic 78 mmHg Blood Pressure Systolic 130 mmHg Results No Known Results Summary Purpose eClinicalWorks Submission
--- OUTSIDE RECORDS SUMMARY | 2016-10-05 16:38 | XMS REPORT ---
Author Author ZABRINA MEDINA Organization [facility] Address Unknown Care Team Providers Care Senior Manufacturing Supervisor Name Role Phone ZABRINA MEDINA Unavailable PROBLEMS Type Condition ICD9-CM Code [id number] Code Onset Dates Condition Status SNOMED Code Problem Urinary problem R39.89 Active 371686540 Problem History of anemia Z86.2 Active 204402265 Problem Acute non-recurrent maxillary sinusitis J01.00 Active 03934580 Problem Dyspepsia R10.13 Active 398867805 Problem Restless leg G25.81 Active 74201890 Problem Yeast dermatitis B37.2 Active 44094669 Problem Generalized anxiety disorder F41.1 Active 19550956 Problem Dysthymic 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 Active 12992736 Problem Asthma with acute exacerbation in adult J45.901 Active 000781532 Problem Dysuria R30.0 Active 27376186 Problem Hypokalemia E87.6 Active 12951193 Problem Other seasonal allergic rhinitis J30.2 Active 798401290 Problem Palpitations R00.2 Active 96243468 Problem Insomnia G47.00 Active 188246140 Problem Depressed F32.9 Active 34198516 Problem Asthma J45.909 Active 146019842 Problem Chronic kidney disease, stage 4 (severe) N18.4 Active 325488266 Problem History of colon polyps Z86.010 Active 273683665 Problem Hypothyroid E03.9 Active 95995615 Problem Functional 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 Active 90407457 Problem Coronary artery disease involving [place] coronary artery of [place] heart, angina presence unspecified I25.10 Active 2023197510535 Problem Bowel habit changes R19.4 Active 62950682 ALLERGIES Unknown Allergies SOCIAL HISTORY No smoking Hx information available PLAN OF CARE VITAL SIGNS MEDICATIONS Medication Instructions Dosage Frequency Start Date End Date Duration Status Zolpidem Tartrate 5 mg TAKE ONE TABLET BY MOUTH AT BEDTIME Active RESULTS No Results PROCEDURES No Known procedures IMMUNIZATIONS No Known Immunizations
--- OUTSIDE RECORDS SUMMARY | 2016-10-05 16:38 | XMS REPORT ---
Author Author KEIRA FORD [facility] eClinicalWorks Address Unknown Phone Unavailable Care Team Providers Care Company Driver Name Role Phone KEIRA FORD CP Unavailable Allergies No Known Allergies Problems Problem Type Condition Code Onset Dates Condition Status Problem Other malaise and fatigue 780.79 Active Problem Chronic kidney disease, 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.4 Active Problem Female stress incontinence 625.6 Active Problem Dysthymic 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 Active Problem CAD (coronary artery disease) 414.00 Active Problem Generalized anxiety disorder F41.1 Active Problem Edema 782.3 Active Problem Insomnia, unspecified 780.52 Active Problem Hypertension 401.9 Active Problem Unspecified cardiac dysrhythmia 427.9 Active Assessment Dysthymic 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 Active Problem Coronary atherosclerosis of unspecified type of vessel, [place] or graft 414.00 Active Assessment Generalized anxiety disorder F41.1 Active Problem 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
--- OUTSIDE RECORDS SUMMARY | 2016-10-05 16:38 | XMS REPORT ---
Author Author KEIRA FORD [facility] eClinicalWorks Address Unknown Phone Unavailable Care Team Providers Care Oim Architect Name Role Phone KEIRA FORD CP Unavailable Allergies No Known Allergies Problems Problem Type Condition Code Onset Dates Condition Status Problem History of colon polyps Z86.010 Active Assessment Generalized anxiety disorder F41.1 Active Problem Functional 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 Active Assessment Dysthymic 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 Active Problem Bowel habit changes R19.4 Active Problem Acute non-recurrent maxillary sinusitis J01.00 Active Problem Urinary problem R39.89 Active Problem Yeast dermatitis B37.2 Active Problem Hypokalemia E87.6 Active Problem Restless leg G25.81 Active Problem Generalized anxiety disorder F41.1 Active Problem Dyspepsia R10.13 Active Problem Dysthymic 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 Active Problem Dysuria R30.0 Active Problem History of anemia Z86.2 Active Problem Other seasonal allergic rhinitis J30.2 Active Problem Asthma with acute exacerbation in adult J45.901 Active Problem Palpitations R00.2 Active Problem Insomnia G47.00 Active Problem Depressed F32.9 Active Problem Asthma J45.909 Active Problem Coronary artery disease involving [place] coronary artery of [place] heart, angina presence unspecified I25.10 Active Problem Chronic kidney disease, stage 4 (severe) N18.4 Active Problem Hypothyroid E03.9 Active Problem Hypertension I10 Active Medications No Known Medications Procedures Procedure Coding System Code Date Psychotherapy, patient &/family, 30 minutes, established patient CPT-4 33904 Dec 23, 2015 Results No Known Results Summary Purpose eClinicalWorks Submission
--- OUTSIDE RECORDS SUMMARY | 2016-10-05 16:38 | XMS REPORT ---
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 Problem Unspecified vitamin D deficiency 268.9 Active Problem Secondary hyperparathyroidism (of renal origin) 588.81 Active Problem Other malaise and fatigue 780.79 Active Medications No Known Medications Procedures Procedure Coding System Code Date Office Visit, Est Pt., Level 2 CPT-4 15180 Dec 03, 2014 DEPO MEDROL 80 MG/ML CPT-4 J1040 Dec 03, 2014 DRAIN/INJECT, JOINT/BURSA CPT-4 40121 Dec 03, 2014 Vital Signs Date/Time: Dec 03, 2014 Blood Pressure Diastolic 70 mmHg Blood Pressure Systolic 122 mmHg Height 63 in Results Name Result Date Reference Range Unit Abnormality Flag JOINT INJECTION-LARGE JOINT (specify site) Summary Purpose eClinicalWorks Submission
--- OUTSIDE RECORDS SUMMARY | 2016-10-05 16:38 | XMS REPORT ---
Author Author KEIRA FORD [facility] eClinicalWorks Address Unknown Phone Unavailable Care Team Providers Care Cupola Tapper Name Role Phone KEIRA FORD CP Unavailable Allergies No Known Allergies Problems Problem Type Condition Code Onset Dates Condition Status Problem Generalized anxiety disorder F41.1 Active Problem Depressed F32.9 Active Problem Restless leg G25.81 Active Problem Coronary artery disease involving [place] coronary artery of [place] heart, angina presence unspecified I25.10 Active Problem [...] patient &/family, 30 minutes, established patient CPT-4 44934 August 13, 2015 Results No Known Results Summary Purpose eClinicalWorks Submission
--- OUTSIDE RECORDS SUMMARY | 2016-10-05 16:38 | XMS REPORT ---
Author Author KEIRA FORD Organization [facility] Address [address] [place] [address] Care Team Providers Care Irrigator Gravity Flow Name Role Phone KEIRA FORD Unavailable PROBLEMS Type Condition ICD9-CM Code [id number] Code Onset Dates Condition Status SNOMED Code Problem Urinary problem R39.89 Active 600788201 Problem History of anemia Z86.2 Active 283564400 Problem Acute non-recurrent maxillary sinusitis J01.00 Active 07943701 Problem Dyspepsia R10.13 Active 855922898 Problem Restless leg G25.81 Active 97774378 Problem Yeast dermatitis B37.2 Active 13987381 Problem Generalized anxiety disorder F41.1 Active 17650172 Problem Dysthymic 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 Active 18881032 Problem Asthma with acute exacerbation in adult J45.901 Active 687606258 Problem Dysuria R30.0 Active 31743951 Problem Hypokalemia E87.6 Active 43551931 Problem Other seasonal allergic rhinitis J30.2 Active 014059593 Problem Palpitations R00.2 Active 08103772 Problem Insomnia G47.00 Active 984732206 Problem Depressed F32.9 Active 37009863 Problem Asthma J45.909 Active 444327343 Problem Chronic kidney disease, stage 4 (severe) N18.4 Active 524726293 Problem History of colon polyps Z86.010 Active 259551870 Problem Hypothyroid E03.9 Active 53237731 Problem Functional 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 Active 18494658 Assessment Dysthymic 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 Dec, Active 30470678 Problem Coronary artery disease involving [place] coronary artery of [place] heart, angina presence unspecified I25.10 Active 9695322675509 Problem Bowel habit changes R19.4 Active 95022980 ALLERGIES Unknown Allergies SOCIAL HISTORY No smoking Hx information available PLAN OF CARE VITAL SIGNS MEDICATIONS Unknown Medications RESULTS No Results PROCEDURES Procedure Date Ordered Related Diagnosis Body Site Psychotherapy, patient &/family, 45 minutes, established patient Jan 12, 2016 IMMUNIZATIONS No Known Immunizations
--- OUTSIDE RECORDS SUMMARY | 2016-10-05 16:39 | XMS REPORT ---
Author Author KEIRA FORD [facility] eClinicalWorks Address Unknown Phone Unavailable Care Team Providers Care Coal Hauler Name Role Phone KEIRA FORD CP Unavailable Allergies No Known Allergies Problems Problem Type Condition Code Onset Dates Condition Status Problem Chronic kidney disease, stage 4 (severe) N18.4 Active Problem Functional 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 Active Problem History of colon polyps Z86.010 Active Problem Asthma with acute exacerbation in adult J45.901 Active Assessment Dysthymic 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 Active Problem Dysuria R30.0 Active Assessment Generalized anxiety disorder F41.1 Active Problem Other seasonal allergic rhinitis J30.2 [...] R00.2 Active Problem Coronary artery disease involving [place] coronary artery of [place] heart, angina presence unspecified I25.10 Active Medications No Known Medications Procedures Procedure Coding System Code Date Psychotherapy, patient &/family, 30 minutes, established patient CPT-4 07639 November 02, 2015 Results No Known Results Summary Purpose eClinicalWorks Submission
--- OUTSIDE RECORDS SUMMARY | 2016-10-05 16:39 | XMS REPORT | Clinical Summary ---
Author Author Admin, MONICA Organization [facility] Address Unknown Phone Unavailable Allergies, Adverse Reactions, [...] Generic Name NDC Status Provider Patient Instruction CYCLOBENZAPRINE HCL 10 MG TABS 1 tablet by mouth three times daily as needed for muscle spasm/pain CYCLOBENZAPRINE HCL 62587503277 Active David Marcelino MD Active EQ FIBER THERAPY 0.52 GM ORAL CAPS 1 cap by mouth three times daily PSYLLIUM 41781420183 Active David Marcelino MD Active FISH OIL CONCENTRATE 1000 MG ORAL CAPS 3 caps by mouth daily OMEGA-3 FATTY ACIDS 75110856699 Active David Marcelino MD Active VITAMIN D3 76436 UNIT ORAL TABS 1 cap by mouth monthly CHOLECALCIFEROL 87535053119 Active David Marcelino MD Active VITAMIN C PLUS 1000 MG ORAL TABS 2 tabs by mouth three times daily BIOFLAVONOID PRODUCTS 71877352535 Active David Marcelino MD Active TOPROL XL 50 MG ORAL [id number] 1 tab by mouth three times daily METOPROLOL SUCCINATE 09070068510 Active David Marcelino MD Active SYMBICORT 160-4.5 MCG/ACT AERO 2 puff BID BUDESONIDE-FORMOTEROL FUMARATE 33020009260 Active David Marcelino MD Active REQUIP 4 MG ORAL TABS 2 tabs by mouth daily ROPINIROLE HCL 02429155632 Active David Marcelino MD Active PROVENTIL HFA 108 (90 BASE) MCG/ACT INH AERS 2 inhaltions prn ALBUTEROL SULFATE 02950450059 Active David Marcelino MD Active PROTONIX 40 MG ORAL TBEC 1 po q a.m. PANTOPRAZOLE SODIUM 12885543637 Active David Marcelino MD Active NORVASC 10 MG TAB 1 tablet by mouth daily AMLODIPINE BESYLATE 85368697885 Active David Marcelino MD Active LYRICA 150 MG CAPS 1 tab by mouth 3 times daily PREGABALIN 21314929180 Active David Marcelino MD Active LOSARTAN POTASSIUM 100 MG TABS 1 pill by mouth daily, for blood pressure LOSARTAN POTASSIUM 13055195678 Active David Marcelino MD Active LEVOTHYROXINE SODIUM 125 MCG TABS 1 qDay LEVOTHYROXINE SODIUM 74025955089 Active David Marcelino MD Active LASIX 40 MG TAB 1 tablet by mouth daily FUROSEMIDE 20528049399 Active David Marcelino MD Active KLOR-CON M10 10 MEQ TBCR 1 tablet by mouth daily POTASSIUM CHLORIDE GI CR 15228585041 Active David Marcelino MD Active KLONOPIN 1 MG TAB 1 tab by mouth daily CLONAZEPAM 53613715354 Active David Marcelino MD Active VERAMYST 27.5 MCG/SPRAY NASAL SUSP 1 spray in nostril as needed FLUTICASONE FUROATE 76391353659 Active David Marcelino MD Active FERROUS SULFATE 325 (65 FE) MG TABS 1 tablet by mouth daily FERROUS SULFATE 10854191700 Active David Marcelino MD Active CYMBALTA 60 MG CPEP 1 cap by mouth daily DULOXETINE HCL 73784653851 Active David Marcelino MD Active CETIRIZINE HCL 10 MG ORAL TABS 1 po qd PRN Allergies CETIRIZINE HCL 30956313358 Active David Marcelino MD Active AMITRIPTYLINE HCL 25 MG TAB 1 tab by mouth daily at bedtime AMITRIPTYLINE HCL 56708336297 Active David Marcelino MD Active AMBIEN 5 MG TAB 1 po qHS PRN Insomnia ZOLPIDEM TARTRATE 60265053472 Active David Marcelino MD Active Vital Signs Date Name Value Unit Range Description blood pressure, diastolic - 8462-4 55 mm[Hg] [...] (dipstick) 0.2 protein, urine, semiquantitative (dipstick) negative Encounters Code Encounter Date Provider Facility CPT-94459 Level 3 Est. Patient 21:05:34 CUSTOMER FIELD REPRESENTATIVE David Marcelino MD [facility] CPT-56060 Level 4 New Patient 19:44:00 CUSTOMER FIELD REPRESENTATIVE David Marcelino MD [facility]
--- OUTSIDE RECORDS SUMMARY | 2016-10-05 16:39 | XMS REPORT ---
Author Author ZABRINA MEDINA [facility] eClinicalWorks Address Unknown Phone Unavailable Care Team Providers Care Clinical Research Spec Name Role Phone ZABRINA MEDINA CP Unavailable Allergies No Known Allergies Problems Problem Type Condition Code Onset Dates Condition Status Problem Generalized anxiety disorder F41.1 Active Problem Depressed F32.9 Active Problem Restless leg G25.81 Active Problem Coronary artery disease involving [place] coronary artery of [place] heart, angina presence unspecified I25.10 Active Problem Hypertension I10 Active Problem Chronic kidney disease, stage 4 (severe) N18.4 Active Problem Palpitations R00.2 Active Problem Asthma J45.909 Active Problem Hypothyroid E03.9 Active Problem Insomnia G47.00 Active Assessment [facility] use of drug Z79.899 Active Assessment Generalized anxiety disorder F41.1 Active Assessment Dysthymic 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 Active Problem Dysthymic 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 Active Medications Medication Code System Code Instructions Start Date End Date Status Dosage Norvasc [facility] [address]-77 10 Orally Once a day 1 tablet Synthroid [facility] [address]-59 125 MCG Orally Once a day 1 tablet Toprol XL [facility] [address]-14 50 MG Orally 3 times a day 1 tablet Niacin [facility] [address]-69 500 MG Orally Once a day 1 capsule Symbicort [facility] [address]-65 160-4.5 MCG/ACT Inhalation Twice a day 2 puffs Losartan Potassium [facility] 49852511270 100 MG TAKE ONE TABLET BY MOUTH DAILY Fluticasone Propionate [facility] 15667482874 50 MCG/ACT USE ONE SPRAY IN EACH NOSTRIL TWICE DAILY Lipitor [facility] [address]-58 20 MG Orally Once a day 1 tablet Iron [facility] 27445-[address]6907 325 (65 Fe) MG Orally 3 times a day 1 tablet Cetirizine HCl [facility] [address]-22 10 MG Orally Once a day 1 tablet Lidoderm [facility] [address]-11 5 %(700 mg/patch) Jan 17, 2013 1 PATCH by Topical route 1 time per day (remove patch(s) after 12 hours) Lyrica [facility] [address]-04 150 MG Orally 3 times a day 1 capsule Amitriptyline HCl [facility] [address]-30 150 MG Orally Once a day 1 tablet at bedtime Potassium Chloride ER [facility] 32835755732 10 MEQ TAKE ONE CAPSULE BY MOUTH DAILY Clonazepam [facility] 53292058231 1 MG TAKE ONE-HALF TABLET BY MOUTH TWICE DAILY Multivitamin Gummies Adult [facility] [address] Orally not defined Klonopin [facility] [address]-37 1 MG Orally Twice a day August 02, 2015 1 tablet Furosemide [facility] [address]-80 40 MG Orally every other day 1 tablet Acidophilus [facility] [address]-73 Orally not defined Protonix [facility] [address]-58 40 MG TAKE ONE TABLET BY MOUTH DAILY [place] [address] [facility] [address] 1000 MG Orally Once a day 1 capsule Vitamin C Gummie [facility] [address]32 120 MG Orally not defined Zolpidem Tartrate [facility] 25587718817 5 MG TAKE ONE TABLET BY MOUTH AT BEDTIME Requip [facility] [address]-08 4 MG Orally do not fill in er Once a day 2 tablets 1 to 3 hours before bedtime Cholecalciferol [facility] [address] 38821 UNIT Orally every month 1 capsule Cymbalta [facility] [address]-49 60 MG Orally Once a day May 03, 2015 1 capsule Procedures Procedure Coding System Code Date MH Office Visit, Est Pt., Level 3 CPT-4 45936 August 02, 2015 No Charge CPT-4 12010 August 02, 2015 Vital Signs Date/Time: August 02, 2015 Cardiac Monitoring Heart Rate 80 bpm Weight 240.2 lbs Height 63 in BMI 42.54 Index Blood Pressure Diastolic 74 mmHg Blood Pressure Systolic 138 mmHg Results No Known Results Summary Purpose eClinicalWorks Submission
--- OUTSIDE RECORDS SUMMARY | 2016-10-05 16:40 | XMS REPORT ---
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
--- OUTSIDE RECORDS SUMMARY | 2016-10-05 16:40 | XMS REPORT ---
Author Author ZABRINA MEDINA Organization [employer] Address Unknown Phone Unavailable Care Team Providers Care Gis Application Developer Name Role Phone ZABRINA MEDINA CP Unavailable Allergies No Known Allergies Problems Problem Type Condition Code Onset Dates Condition Status Problem Bowel habit changes R19.4 Active Problem Acute non-recurrent maxillary sinusitis J01.00 Active Problem Urinary problem R39.89 Active Problem Yeast dermatitis B37.2 Active Problem Restless leg G25.81 Active Problem Hypokalemia E87.6 Active Problem Generalized anxiety disorder F41.1 Active Problem Dysthymic 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 Active Problem Dyspepsia R10.13 Active Problem Dysuria R30.0 Active Problem History of anemia Z86.2 Active Problem Other seasonal allergic rhinitis J30.2 Active Problem Asthma with acute exacerbation in adult J45.901 Active Problem Palpitations R00.2 Active Problem Insomnia G47.00 Active Problem Depressed F32.9 Active Problem Asthma J45.909 Active Problem Coronary artery disease involving [place] coronary artery of [place] heart, angina presence unspecified I25.10 Active Problem Chronic kidney disease, stage 4 (severe) N18.4 Active Problem Hypothyroid E03.9 Active Problem History of colon polyps Z86.010 Active Problem Hypertension I10 Active Problem Functional 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 Active Medications Medication Code System Code Instructions Start Date End Date Status Dosage Clonazepam [facility] [address]-54 1 MG Orally Twice a day 1 tablet Results No Known Results Summary Purpose eClinicalWorks Submission
--- OUTSIDE RECORDS SUMMARY | 2016-10-05 16:40 | XMS REPORT | Clinical Summary ---
Author Author Admin, E Organization [facility] Address Unknown Phone Unavailable Allergies, [...] as needed for muscle spasm/pain CYCLOBENZAPRINE HCL 15036391340 Active David Marcelino MD Active EQ FIBER THERAPY 0.52 GM ORAL CAPS 1 cap by mouth three times daily PSYLLIUM 88622223592 Active David Marcelino MD Active FISH OIL CONCENTRATE 1000 MG ORAL CAPS 3 caps by mouth daily OMEGA-3 FATTY ACIDS 27409779218 Active David Marcelino MD Active VITAMIN D3 00537 UNIT ORAL TABS 1 cap by mouth monthly CHOLECALCIFEROL 61033433560 Active David Marcelino MD Active VITAMIN C PLUS 1000 MG ORAL TABS 2 tabs by mouth three times daily BIOFLAVONOID PRODUCTS 97622123477 Active David Marcelino MD Active TOPROL XL 50 MG ORAL [id number] 1 tab by mouth three times daily METOPROLOL SUCCINATE 97828143293 Active David Marcelino MD Active SYMBICORT 160-4.5 MCG/ACT AERO 2 puff BID BUDESONIDE-FORMOTEROL FUMARATE 01017584159 Active David Marcelino MD Active REQUIP 4 MG ORAL TABS 2 tabs by mouth daily ROPINIROLE HCL 91709921434 Active David Marcelino MD Active PROVENTIL HFA 108 (90 BASE) MCG/ACT INH AERS 2 inhaltions prn ALBUTEROL SULFATE 16037467242 Active David Marcelino MD Active PROTONIX 40 MG ORAL TBEC 1 po q a.m. PANTOPRAZOLE SODIUM 19059788230 Active David Marcelino MD Active NORVASC 10 MG TAB 1 tablet by mouth daily AMLODIPINE BESYLATE 55526420486 Active David Marcelino MD Active LYRICA 150 MG CAPS 1 tab by mouth 3 times daily PREGABALIN 76416306808 Active David Marcelino MD Active LOSARTAN POTASSIUM 100 MG TABS 1 pill by mouth daily, for blood pressure LOSARTAN POTASSIUM 39367599804 Active David Marcelino MD Active LEVOTHYROXINE SODIUM 125 MCG TABS 1 qDay LEVOTHYROXINE SODIUM 49739678025 Active David Marcelino MD Active LASIX 40 MG TAB 1 tablet by mouth daily FUROSEMIDE 83206020425 Active David Marcelino MD Active KLOR-CON M10 10 MEQ TBCR 1 tablet by mouth daily POTASSIUM CHLORIDE GI CR 64071065382 Active David Marcelino MD Active KLONOPIN 1 MG TAB 1 tab by mouth daily CLONAZEPAM 19241427265 Active David Marcelino MD Active VERAMYST 27.5 MCG/SPRAY NASAL SUSP 1 spray in nostril as needed FLUTICASONE FUROATE 80168058686 Active David Marcelino MD Active FERROUS SULFATE 325 (65 FE) MG TABS 1 tablet by mouth daily FERROUS SULFATE 56003204322 Active David Marcelino MD Active CYMBALTA 60 MG CPEP 1 cap by mouth daily DULOXETINE HCL 33962150005 Active David Marcelino MD Active CETIRIZINE HCL 10 MG ORAL TABS 1 po qd PRN Allergies CETIRIZINE HCL 62351663101 Active David Marcelino MD Active AMITRIPTYLINE HCL 25 MG TAB 1 tab by mouth daily at bedtime AMITRIPTYLINE HCL 62807473490 Active David Marcelino MD Active AMBIEN 5 MG TAB 1 po qHS PRN Insomnia ZOLPIDEM TARTRATE 29948310787 Active David Marcelino MD Active Vital Signs [...] negative Encounters Code Encounter Date Provider Facility CPT-39845 Level 3 Est. Patient 21:05:34 FLOOR RENOVATOR David Marcelino MD [facility] CPT-29982 Level 4 New Patient 19:44:00 FLOOR RENOVATOR David Marcelino MD [facility] Procedures Code Procedure Name Date Entry Date Standard Description CPT-45457 Postop F/U Visit 15:28:22 FLOOR RENOVATOR
--- OUTSIDE RECORDS SUMMARY | 2016-10-05 16:40 | XMS REPORT ---
Author Author ARUNA HERNANDEZ Organization [facility] Address [address] [place] [address] Care Team Providers Care Clinical Office Technician Name Role Phone CAPRI HERNANDEZTOMAS Unavailable PROBLEMS Type Condition ICD9-CM Code EDK38-UM Code Onset Dates Condition Status SNOMED Code Problem Urinary problem R39.89 Active 660006204 Problem History of anemia Z86.2 Active 682255175 Problem Acute non-recurrent maxillary sinusitis J01.00 Active 27334134 Problem Dyspepsia R10.13 Active 190886022 Problem Restless leg G25.81 Active 12680585 Problem Yeast dermatitis B37.2 Active 27465288 Problem Generalized anxiety disorder F41.1 Active 83889756 Problem Dysthymic 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 Active 10351480 Problem Asthma with acute exacerbation in adult J45.901 Active 073694924 Problem Dysuria R30.0 Active 15311801 Problem Hypokalemia E87.6 Active 66292887 Problem Other seasonal allergic rhinitis J30.2 Active 968235299 Problem Palpitations R00.2 Active 01594362 Problem Insomnia G47.00 Active 792736003 Problem Depressed F32.9 Active 62622602 Problem Asthma J45.909 Active 656948778 Problem Chronic kidney disease, stage 4 (severe) N18.4 Active 296033667 Problem History of colon polyps Z86.010 Active 644965171 Problem Hypothyroid E03.9 Active 86847674 Problem Functional 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 Active 10379807 Assessment Chronic kidney disease, stage 4 (severe) N18.4 Dec, Active 302802892 Problem Coronary artery disease involving [place] coronary artery of [place] heart, angina presence unspecified I25.10 Active 0631685175489 Problem Bowel habit changes R19.4 Active 05074696 ALLERGIES Unknown Allergies SOCIAL HISTORY No smoking Hx information available PLAN OF CARE VITAL SIGNS MEDICATIONS Unknown Medications RESULTS Name Result Date Reference Range LIPID PANEL 2016-01-12 Cholesterol, Total 244 100-199 Triglycerides 187 0-149 HDL Cholesterol 50 >39 VLDL Cholesterol [place] 37 5-40 LDL Cholesterol Calc 157 0-99 Comment: CMP 2016-01-12 Glucose, Serum 98 65-99 BUN 15 6-24 Creatinine, Serum 1.18 0.57-1.00 eGFR If NonAfricn Am 52 >59 eGFR If Africn Am 60 >59 BUN/Creatinine Ratio 13 9-23 Sodium, Serum 144 134-144 Potassium, Serum 4.2 3.5-5.2 Chloride, Serum 101 97-108 Carbon Dioxide, Total 27 18-29 Calcium, Serum 9.7 8.7-10.2 Protein, Total, Serum 7.1 6.0-8.5 Albumin, Serum 4.6 3.5-5.5 Globulin, Total 2.5 1.5-4.5 A/G Ratio 1.8 1.1-2.5 Bilirubin, Total 0.3 0.0-1.2 Alkaline Phosphatase, S 113 39-117 AST (SGOT) 27 0-40 ALT (SGPT) 21 0-32 PROCEDURES Procedure Date Ordered Related Diagnosis Body Site COMPREHEN METABOLIC PANEL Jan 12, 2016 VENIPUNCT, ROUTINE* Jan 12, 2016 LIPID PANEL Jan 12, 2016 IMMUNIZATIONS No Known Immunizations
--- OUTSIDE RECORDS SUMMARY | 2016-10-05 16:40 | XMS REPORT ---
Author Author ISABEL MAE Organization [employer] Address Unknown Phone Unavailable Care Team Providers Care Cook Taco Name Role Phone ISABEL MAE CP Unavailable [...] R00.2 Active Problem Coronary artery disease involving [place] coronary artery of [place] heart, angina presence unspecified I25.10 Active Medications No Known Medications Results No Known Results Summary Purpose eClinicalWorks Submission
--- OUTSIDE RECORDS SUMMARY | 2016-10-05 16:40 | XMS REPORT ---
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
--- OUTSIDE RECORDS SUMMARY | 2016-10-05 16:40 | XMS REPORT | Clinical Summary ---
Author Author Admin, MONICA Organization [facility] Address Unknown Phone Unavailable Allergies, Adverse [...] Generic Name NDC Status Provider Patient Instruction VESICARE 10 MG TABS 1 pill by mouth daily for overactive bladder SOLIFENACIN SUCCINATE 07388036059 Active David Marcelino MD Active CYCLOBENZAPRINE HCL 10 MG TABS 1 tablet by mouth three times daily as needed for muscle spasm/pain CYCLOBENZAPRINE HCL 41956316253 Active David Marcelino MD Active EQ FIBER THERAPY 0.52 GM ORAL CAPS 1 cap by mouth three times daily PSYLLIUM 16377418865 Active David Marcelino MD Active FISH OIL CONCENTRATE 1000 MG ORAL CAPS 3 caps by mouth daily OMEGA-3 FATTY ACIDS 38621612729 Active David Marcelino MD Active VITAMIN D3 72864 UNIT ORAL TABS 1 cap by mouth monthly CHOLECALCIFEROL 36504065196 Active David Marcelino MD Active VITAMIN C PLUS 1000 MG ORAL TABS 2 tabs by mouth three times daily BIOFLAVONOID PRODUCTS 08942659191 Active David Marcelino MD Active TOPROL XL 50 MG ORAL [id number] 1 tab by mouth three times daily METOPROLOL SUCCINATE 55444246710 Active David Marcelino MD Active SYMBICORT 160-4.5 MCG/ACT AERO 2 puff BID BUDESONIDE-FORMOTEROL FUMARATE 57036998790 Active David Marcelino MD Active REQUIP 4 MG ORAL TABS 2 tabs by mouth daily ROPINIROLE HCL 56068438198 Active David Marcelino MD Active PROVENTIL HFA 108 (90 BASE) MCG/ACT INH AERS 2 inhaltions prn ALBUTEROL SULFATE 46650071483 Active David Marcelino MD Active PROTONIX 40 MG ORAL TBEC 1 po q a.m. PANTOPRAZOLE SODIUM 96457462392 Active David Marcelino MD Active NORVASC 10 MG TAB 1 tablet by mouth daily AMLODIPINE BESYLATE 35127363422 Active David Marcelino MD Active LYRICA 150 MG CAPS 1 tab by mouth 3 times daily PREGABALIN 37609783568 Active David Marcelino MD Active LOSARTAN POTASSIUM 100 MG TABS 1 pill by mouth daily, for blood pressure LOSARTAN POTASSIUM 12432206807 Active David Marcelino MD Active LEVOTHYROXINE SODIUM 125 MCG TABS 1 qDay LEVOTHYROXINE SODIUM 83171253781 Active David Marcelino MD Active LASIX 40 MG TAB 1 tablet by mouth daily FUROSEMIDE 41253795176 Active David Marcelino MD Active KLOR-CON M10 10 MEQ TBCR 1 tablet by mouth daily POTASSIUM CHLORIDE GI CR 32074831275 Active David Marcelino MD Active KLONOPIN 1 MG TAB 1 tab by mouth daily CLONAZEPAM 40459374034 Active David Marcelino MD Active VERAMYST 27.5 MCG/SPRAY NASAL SUSP 1 spray in nostril as needed FLUTICASONE FUROATE 99234452796 Active David Marcelino MD Active FERROUS SULFATE 325 (65 FE) MG TABS 1 tablet by mouth daily FERROUS SULFATE 57049670405 Active David Marcelino MD Active CYMBALTA 60 MG CPEP 1 cap by mouth daily DULOXETINE HCL 94619448270 Active David Marcelino MD Active CETIRIZINE HCL 10 MG ORAL TABS 1 po qd PRN Allergies CETIRIZINE HCL 65535756016 Active David Marcelino MD Active AMITRIPTYLINE HCL 25 MG TAB 1 tab by mouth daily at bedtime AMITRIPTYLINE HCL 94671960056 Active David Marcelino MD Active AMBIEN 5 MG TAB 1 po qHS PRN Insomnia ZOLPIDEM TARTRATE 38342217508 Active David Marcelino MD Active Vital Signs Date Name Value Unit Range Description blood pressure, diastolic - 8462-4 65 mm[Hg] BP montalvo blood pressure, systolic - 8480-6 120 mm[Hg] BP sys pulse rate E&M - 8867-4 75 /min Heart rate temperature E&M 98.4 [degF] Body temperature weight E&M - 3141-9 246 [lb_av] Weight Measured blood pressure, diastolic - 8462-4 64 mm[Hg] [...] negative Encounters Code Encounter Date Provider Facility [id number] Level 3 Est. Patient 21:05:34 MANAGER BACKGROUND David Marcelino MD [facility] CPT-49485 Level 4 New Patient 19:44:00 MANAGER BACKGROUND David Marcelino MD [facility] Procedures Code Procedure Name Date Entry Date Standard Description CPT-95492 Postop F/U Visit 20:37:06 MANAGER BACKGROUND [facility]-[id number] Postop F/U Visit 15:28:22 MANAGER BACKGROUND
--- OUTSIDE RECORDS SUMMARY | 2016-10-05 16:41 | XMS REPORT ---
Author Author ISABEL MAE [facility] eClinical[employer] Address Unknown Phone Unavailable Care Team Providers Care Spraying Machine Operator Name Role Phone ISABEL MAE CP Unavailable Allergies, Adverse Reactions, Alerts Substance Reaction Event Type N.K.D.A. Info Not Available Non Drug Allergy Problems Problem Type Condition Code Onset Dates Condition Status Problem Generalized anxiety disorder F41.1 Active Problem Depressed F32.9 Active Problem Restless leg G25.81 Active Problem Coronary artery disease involving [place] coronary artery of comanche heart, angina presence unspecified I25.10 Active Problem Hypertension I10 Active Problem Chronic kidney disease, stage 4 (severe) N18.4 Active Problem Palpitations R00.2 Active Problem Asthma J45.909 Active Problem Hypothyroid E03.9 Active Problem Insomnia G47.00 Active Assessment Dysthymic 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 Active Assessment Generalized anxiety disorder F41.1 Active Problem Dysthymic 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 Active Medications Medication Code System Code Instructions Start Date End Date Status Dosage [place] 3 [facility] [address] 1000 MG Orally Once a day 1 capsule Toprol XL [facility] [address]-84 100 MG Orally 3 times a day 1 tablet Seroquel [facility] [address]-53 100 MG Orally Once a day- 2 tablet at bedtime Requip [facility] [address]-14 4 MG Orally do not fill in er Once a day 2 tablets 1 to 3 hours before bedtime Protonix [facility] [address]-81 40 MG TAKE ONE TABLET BY MOUTH DAILY Effexor XR [facility] [address]-88 150 MG Orally Once a day 1 capsule with food BusPIRone HCl [facility] [address]-25 7.5 MG Orally Twice a day prn Feb 04, 2015 1 tablet Furosemide [facility] [address]-81 40 MG Orally every other day 1 tablet Synthroid [facility] [address]-97 125 MCG Orally Once a day 1 tablet Zofran [facility] [address]-69 8 MG Orally q 8 hours prn Mar 30, 2015 1 tablet Multivitamin Gummies Adult [facility] 70673-[address]99 Orally not defined Amitriptyline HCl [facility] [address]-38 150 MG Orally Once a day 1 tablet at bedtime Lyrica [facility] [address]-25 150 MG Orally 3 times a day 1 capsule Vitamin C Gummie [facility] [address]6875[address] 120 MG Orally not defined Niacin [facility] [address]-10 500 MG Orally Once a day 1 capsule Cetirizine HCl [facility] [address]-40 10 MG Orally Once a day 1 tablet Potassium Chloride ER [facility] 75752786224 10 MEQ TAKE ONE CAPSULE BY MOUTH DAILY Losartan Potassium [facility] 69436563073 100 MG TAKE ONE TABLET BY MOUTH DAILY Iron [facility] [address] 325 (65 Fe) MG Orally 3 times a day 1 tablet Lidoderm [facility] [address]-90 5 %(700 mg/patch) Jan 17, 2013 1 PATCH by Topical route 1 time per day (remove patch(s) after 12 hours) Cholecalciferol [facility] 200[address] 72631 UNIT Orally every month 1 capsule Norvasc [facility] [address]-45 10 Orally Once a day 1 tablet Lipitor [facility] [address]-67 20 MG Orally Once a day 1 tablet Symbicort [facility] [address]-28 160-4.5 MCG/ACT Inhalation Twice a day 2 puffs Procedures Procedure Coding System Code Date Office Visit, Est Pt., Level 3 CPT-4 51799 Apr 13, 2015 Vital Signs Date/Time: Apr 13, 2015 Temperature 98.7 F Weight 259.0 lbs Height 63 in BMI 45.87 Index Blood Pressure Diastolic 76 mmHg Blood Pressure Systolic 126 mmHg Cardiac Monitoring Heart Rate 82 bpm Results No Known Results Summary Purpose eClinicalWorks Submission
--- OUTSIDE RECORDS SUMMARY | 2016-10-05 16:46 | XMS REPORT | Continuity of Care Document ---
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 01/27/2009 OGLESBY DO CAMERON K 244.9 HYPOTHYROIDISM 01/27/2009 OGLESBY DO CAMERON K 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 01/27/2009 OGLESBY DO CAMERON K 244.9 HYPOTHYROIDISM 01/27/2009 OGLESBY DO CAMERON K 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 01/27/2009 244.9 HYPOTHYROIDISM 01/27/2009 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 01/27/2009 OGLESBY DO CAMERON K 244.9 HYPOTHYROIDISM 01/27/2009 OGLESBY DO CAMERON K 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 01/27/2009 STACEY GAMINO PA-C 244.9 HYPOTHYROIDISM 01/27/2009 STACEY GAMINO PA-C M 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 01/27/2009 244.9 HYPOTHYROIDISM 01/27/2009 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 01/27/2009 244.9 HYPOTHYROIDISM 01/27/2009 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 01/27/2009 244.9 HYPOTHYROIDISM 01/27/2009 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 01/27/2009 OGLESBY DO CAMERON K 244.9 HYPOTHYROIDISM 01/27/2009 OGLESBY DO CAMERON K 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 01/27/2009 OGLESBY DO CAMERON K 244.9 HYPOTHYROIDISM 01/27/2009 OGLESBY DO CAMERON K 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 01/27/2009 STACEY GAMNIO PA-C M 244.9 HYPOTHYROIDISM 01/27/2009 STACEY GAMINO PA-C 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 01/27/2009 OGLESBY DO, CAMERON K 244.9 HYPOTHYROIDISM 01/27/2009 OGLESBY DO, CAMERON K 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 01/27/2009 OGLESBY DO, CAMERON K 244.9 HYPOTHYROIDISM 01/27/2009 OGLESBY DO, CAMERON K 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 01/27/2009 OGLESBY DO, CAMERON K 244.9 HYPOTHYROIDISM 01/27/2009 OGLESBY DO, CAMERON K 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 01/27/2009 OGLESBY DO, CAMERON K 244.9 HYPOTHYROIDISM 01/27/2009 OGLESBY DO, CAMERON K 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 01/27/2009 OGLESBY DO, CAMERON K 244.9 HYPOTHYROIDISM 01/27/2009 OGLESBY DO, CAMERON K 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 01/27/2009 OGLESBY DO, CAMERON K 244.9 HYPOTHYROIDISM 01/27/2009 OGLESBY DO, CAMERON K 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 01/27/2009 CORLEY ANNUAL CAMPAIGN MANAGER, MAKSIM R 244.9 HYPOTHYROIDISM 01/27/2009 CORLEY ANNUAL CAMPAIGN MANAGER, MAKSIM R 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 01/27/2009 CORLEY ANNUAL CAMPAIGN MANAGER, MAKSIM R 244.9 HYPOTHYROIDISM 01/27/2009 CORLEY ANNUAL CAMPAIGN MANAGER, MAKSIM R 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 01/27/2009 OGLESBY DO, CAMERON K 244.9 HYPOTHYROIDISM 01/27/2009 OGLESBY DO, CAMERON K 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 01/27/2009 OGLESBY DO, CAMERON K 244.9 HYPOTHYROIDISM 01/27/2009 OGLESBY DO, CAMERON K 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 01/27/2009 OGLESBY DO, CAMERON K 244.9 HYPOTHYROIDISM 01/27/2009 OGLESBY DO, CAMERON K 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 01/27/2009 OGLESBY DO, CAMERON K 244.9 HYPOTHYROIDISM 01/27/2009 OGLESBY DO, CAMERON K 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 01/27/2009 OGLESBY DO, CAMERON K 244.9 HYPOTHYROIDISM 01/27/2009 OGLESBY DO, CAMERON K 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 01/27/2009 KEIRA FORD PSYD ANN L 244.9 HYPOTHYROIDISM 01/27/2009 MCCLEEARY PSYD, ROBERT L 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 01/27/2009 OGLESBY DO CAMERON K 244.9 HYPOTHYROIDISM 01/27/2009 OGLESBY DO CAMERON K 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 01/27/2009 JORDAN MCDONALD APRN 244.9 HYPOTHYROIDISM 01/27/2009 JORDAN MCDONALD APRN 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 01/27/2009 STACEY GAMINO PA-C M 244.9 HYPOTHYROIDISM 01/27/2009 STACEY GAMINO PA-C M 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1 FIBROMYALGIA 03/15/2010 780.52 Insomnia 03/15/2010 787.1 Heartburn 03/15/2010 729.1 FIBROMYALGIA 03/15/2010 780.52 Insomnia 03/15/2010 787.1 Heartburn 03/15/2010 OGLESBY DOESTHELAA K 729.1 FIBROMYALGIA 03/15/2010 OGLESBY DO CAMERON K 780.52 Insomnia 03/15/2010 OGLESBY DO CAMERON K 787.1 Heartburn 03/15/2010 OGLESBY DO CAMERON K 729.1 FIBROMYALGIA 03/15/2010 OGLESBY DO, CAMERON K 780.52 Insomnia 03/15/2010 OGLESBY DO CAMERON K 787.1 Heartburn 03/15/2010 729.1 FIBROMYALGIA 03/15/2010 780.52 Insomnia 03/15/2010 787.1 Heartburn 03/15/2010 OGLESBY DO CAMERON K 729.1 FIBROMYALGIA 03/15/2010 OGLESBY DO CAMERON K 780.52 Insomnia 03/15/2010 OGLESBY DO CAMERON K 787.1 Heartburn 03/15/2010 STACEY GAMINO PA-C 729.1 FIBROMYALGIA 03/15/2010 HANNY PASCAL-CSTACEY M 780.52 Insomnia 03/15/2010 HANNY PASCAL-CSTACEY M 787.1 Heartburn 03/15/2010 729.1 FIBROMYALGIA 03/15/2010 780.52 Insomnia 03/15/2010 787.1 Heartburn 03/15/2010 729.1 FIBROMYALGIA 03/15/2010 780.52 Insomnia 03/15/2010 787.1 Heartburn 03/15/2010 729.1 FIBROMYALGIA 03/15/2010 780.52 Insomnia 03/15/2010 787.1 Heartburn 03/15/2010 OGLESBY DOESTHELAA K 729.1 FIBROMYALGIA 03/15/2010 OGLESBY DOESTHELAA K 780.52 Insomnia 03/15/2010 ESTHELA OGLESBY DOA K 787.1 Heartburn 03/15/2010 OGLESBY DOESTHELAA K 729.1 FIBROMYALGIA 03/15/2010 OGLESBY DO CAMERON K 780.52 Insomnia 03/15/2010 ESTHELA OGLESBY DOA K 787.1 Heartburn 03/15/2010 HANNY WEIRCSTACEY M 729.1 FIBROMYALGIA 03/15/2010 HANNY PASCAL-CSTACEY M 780.52 Insomnia 03/15/2010 HANNY PASCAL-CSTACEY M 787.1 Heartburn 03/15/2010 OGLESBY DO CAMERON K 729.1 FIBROMYALGIA 03/15/2010 OGLESBY DO CAMERON K 780.52 Insomnia 03/15/2010 OGLESBY DO CAMERON K 787.1 Heartburn 03/15/2010 OGLESBY DO CAMERON K 729.1 FIBROMYALGIA 03/15/2010 OGLESBY DO CAMERON K 780.52 Insomnia 03/15/2010 OGLESBY ESTHELA WASSERMANA K 787.1 Heartburn 03/15/2010 OGLESBY DO, CAMERON K 729.1 FIBROMYALGIA 03/15/2010 OGLESBY DO, CAMERON K 780.52 Insomnia 03/15/2010 OGLESBY DO, CAMERON K 787.1 Heartburn 03/15/2010 OGLESBY DO, CAMERON K 729.1 FIBROMYALGIA 03/15/2010 OGLESBY DO, CAMERON K 780.52 Insomnia 03/15/2010 OGLESBY DO, CAMERON K 787.1 Heartburn 03/15/2010 OGLESBY DO, CAMERON K 729.1 FIBROMYALGIA 03/15/2010 OGLESBY DO, CAMERON K 780.52 Insomnia 03/15/2010 OGLESBY DO, CAMERON K 787.1 Heartburn 03/15/2010 OGLESBY DO, CAMERON K 729.1 FIBROMYALGIA 03/15/2010 OGLESBY DO, CAMERON K 780.52 Insomnia 03/15/2010 OGLESBY DO, CAMERON K 787.1 Heartburn 03/15/2010 BARNEY ANNUAL CAMPAIGN MANAGER, MAKSIM R 729.1 FIBROMYALGIA 03/15/2010 BARNEY ANNUAL CAMPAIGN MANAGER, MAKSIM R 780.52 Insomnia 03/15/2010 CORLEY ANNUAL CAMPAIGN MANAGER, MAKSIM R 787.1 Heartburn 03/15/2010 CORLEY ANNUAL CAMPAIGN MANAGER, MAKSIM R 729.1 FIBROMYALGIA 03/15/2010 CORLEY ANNUAL CAMPAIGN MANAGER, MAKSIM R 780.52 Insomnia 03/15/2010 BARNEY ANNUAL CAMPAIGN MANAGER, MAKSIM R 787.1 Heartburn 03/15/2010 OGLESBY DO, CAMERON K 729.1 FIBROMYALGIA 03/15/2010 OGLESBY DO, CAMERON K 780.52 Insomnia 03/15/2010 OGLESBY DO, CAMERON K 787.1 Heartburn 03/15/2010 OGLESBY DO, CAMERON K 729.1 FIBROMYALGIA 03/15/2010 OGLESBY DO, CAMERON K 780.52 Insomnia 03/15/2010 OGLESBY DO, CAMERON K 787.1 Heartburn 03/15/2010 OGLESBY DO, CAMERON K 729.1 FIBROMYALGIA 03/15/2010 OGLESBY DO, CAMERON K 780.52 Insomnia 03/15/2010 OGLESBY DO, CAMERON K 787.1 Heartburn 03/15/2010 OGLESBY DO, CAMERON K 729.1 FIBROMYALGIA 03/15/2010 OGLESBY DO, CAMERON K 780.52 Insomnia 03/15/2010 OGLESBY DO, CAMERON K 787.1 Heartburn 03/15/2010 OGLESBY DO, CAMERON K 729.1 FIBROMYALGIA 03/15/2010 OGLESBY DO, CAMERON K 780.52 Insomnia 03/15/2010 OGLESBY DO, CAMERON K 787.1 Heartburn 03/15/2010 KEIRA FORD PSYD L 729.1 FIBROMYALGIA 03/15/2010 KEIRA FORD PSYD 780.52 Insomnia 03/15/2010 KEIRA FORD PSYD 787.1 Heartburn 03/15/2010 OGLESBY DO CAMERON K 729.1 FIBROMYALGIA 03/15/2010 OGLESBY DO CAMERON K 780.52 Insomnia 03/15/2010 OGLESBY DO, CAMERON K 787.1 Heartburn 03/15/2010 JORDAN MCDONALD APRN 729.1 FIBROMYALGIA 03/15/2010 JORDAN MCDONALD APRN 780.52 Insomnia 03/15/2010 JORDAN MCDONALD APRN 787.1 Heartburn 03/15/2010 STACEY GAMINO PA-C 729.1 FIBROMYALGIA 03/15/2010 STACEY GAMINO PA-C 780.52 Insomnia 03/15/2010 STACEY GAMINO PA-C 787.1 Heartburn 03/15/2010 KEIRA FORD PSYD 729.1 FIBROMYALGIA 03/15/2010 KEIRA FORD PSYD 780.52 Insomnia 03/15/2010 KEIRA FORD PSYD 787.1 Heartburn 04/20/2010 401.1 HYPERTENSION, BENIGN ESSENTIAL 04/20/2010 401.1 HYPERTENSION, BENIGN ESSENTIAL 04/20/2010 ESTHELA OGLESBY DOA K 401.1 HYPERTENSION, BENIGN ESSENTIAL 04/20/2010 OGLESBY DO CAMERON K 401.1 HYPERTENSION, BENIGN ESSENTIAL 04/20/2010 401.1 HYPERTENSION, BENIGN ESSENTIAL 04/20/2010 OGLESBY DO CAMERON K 401.1 HYPERTENSION, BENIGN ESSENTIAL 04/20/2010 STACEY GAMINO PA-C 401.1 HYPERTENSION, BENIGN ESSENTIAL 04/20/2010 401.1 HYPERTENSION, BENIGN ESSENTIAL 04/20/2010 401.1 HYPERTENSION, BENIGN ESSENTIAL 04/20/2010 401.1 HYPERTENSION, BENIGN ESSENTIAL 04/20/2010 OGLESBY DO CAMERON K 401.1 HYPERTENSION, BENIGN ESSENTIAL 04/20/2010 OGLESBY DO CAMERON K 401.1 HYPERTENSION, BENIGN ESSENTIAL 04/20/2010 STACEY GAMINO PA-C 401.1 HYPERTENSION, BENIGN ESSENTIAL 04/20/2010 OGLESBY DO, CAMERON K 401.1 HYPERTENSION, BENIGN ESSENTIAL 04/20/2010 OGLESBY DO, CAMERON K 401.1 HYPERTENSION, BENIGN ESSENTIAL 04/20/2010 OGLESBY DO, CAMERON K 401.1 HYPERTENSION, BENIGN ESSENTIAL 04/20/2010 OGLESBY DO, CAMERON K 401.1 HYPERTENSION, BENIGN ESSENTIAL 04/20/2010 OGLESBY DO, CAMERON K 401.1 HYPERTENSION, BENIGN ESSENTIAL 04/20/2010 OGLESBY DO, CAMERON K 401.1 HYPERTENSION, BENIGN ESSENTIAL 04/20/2010 DIONTE CORLEY APRNIA R 401.1 HYPERTENSION, BENIGN ESSENTIAL 04/20/2010 DIONTE CORLEY APRNIA R 401.1 HYPERTENSION, BENIGN ESSENTIAL 04/20/2010 OGLESBY DO, CAMERON K 401.1 HYPERTENSION, BENIGN ESSENTIAL 04/20/2010 OGLESBY DO, CAMERON K 401.1 HYPERTENSION, BENIGN ESSENTIAL 04/20/2010 OGLESBY DO, CAMERON K 401.1 HYPERTENSION, BENIGN ESSENTIAL 04/20/2010 OGLESBY DO, CAMERON K 401.1 HYPERTENSION, BENIGN ESSENTIAL 04/20/2010 OGLESBY DO, CAMERON K 401.1 HYPERTENSION, BENIGN ESSENTIAL 04/20/2010 KEIRA FORD PSYD 401.1 HYPERTENSION, BENIGN ESSENTIAL 04/20/2010 OGLESBY DO, CAMERON K 401.1 HYPERTENSION, BENIGN ESSENTIAL 04/20/2010 JORDAN MCDONALD APRN 401.1 HYPERTENSION, BENIGN ESSENTIAL 04/20/2010 STACEY GAMINO PA-C 401.1 HYPERTENSION, BENIGN ESSENTIAL 04/20/2010 KEIRA FORD PSYD 401.1 HYPERTENSION, BENIGN ESSENTIAL 07/14/2010 726.73 HEEL SPUR 07/14/2010 726.73 HEEL SPUR 07/14/2010 OGLESBY DO, CAMERON K 726.73 HEEL SPUR 07/14/2010 OGLESBY DO, CAMERON K 726.73 HEEL SPUR 07/14/2010 726.73 HEEL SPUR 07/14/2010 OGLESBY DO, CAMERON K 726.73 HEEL SPUR 07/14/2010 STACEY GAMINO PA-C 726.73 HEEL SPUR 07/14/2010 726.73 HEEL SPUR 07/14/2010 726.73 HEEL SPUR 07/14/2010 726.73 HEEL SPUR 07/14/2010 OGLESBY DO, CAMERON K 726.73 HEEL SPUR 07/14/2010 OGLESBY DO, CAMERON K 726.73 HEEL SPUR 07/14/2010 STACEY GAMINO PA-C 726.73 HEEL SPUR 07/14/2010 OGLESBY DO, CAMERON K 726.73 HEEL SPUR 07/14/2010 OGLESBY DO, CAMERON K 726.73 HEEL SPUR 07/14/2010 OGLESBY DO, CAMERON K 726.73 HEEL SPUR 07/14/2010 OGLESBY DO, CAMERON K 726.73 HEEL SPUR 07/14/2010 OGLESBY DO, CAMERON K 726.73 HEEL SPUR 07/14/2010 OGLESBY DO, CAMERON K 726.73 HEEL SPUR 07/14/2010 MAKSIM CORLEY APRN R 726.73 HEEL SPUR 07/14/2010 BARNEY ANNUAL CAMPAIGN MANAGERLATISHA EllisMAKSIM R 726.73 HEEL SPUR 07/14/2010 OGLESBY DO, CAMERON K 726.73 HEEL SPUR 07/14/2010 OGLESBY DO, CAMERON K 726.73 HEEL SPUR 07/14/2010 OGLESBY DO, CAMERON K 726.73 HEEL SPUR 07/14/2010 OGLESBY DO, CAMERON K 726.73 HEEL SPUR 07/14/2010 OGLESBY DO, CAMERON K 726.73 HEEL SPUR 07/14/2010 KEIRA FORD PSYD 726.73 HEEL SPUR 07/14/2010 OGLESBY DO, CAMERON K 726.73 HEEL SPUR 07/14/2010 JORDAN MCDONALD APRN 726.73 HEEL SPUR 07/14/2010 STACEY GAMINO PA-C 726.73 HEEL SPUR 07/14/2010 KEIRA FORD PSYD 726.73 HEEL SPUR 08/17/2010 272.4 HYPERLIPIDEMIA 08/17/2010 272.4 HYPERLIPIDEMIA 08/17/2010 OGLESBY DO, CAMERON K 272.4 HYPERLIPIDEMIA 08/17/2010 OGLESBY DO, CAMERON K 272.4 HYPERLIPIDEMIA 08/17/2010 272.4 HYPERLIPIDEMIA 08/17/2010 OGLESBY DO, CAMERON K 272.4 HYPERLIPIDEMIA 08/17/2010 STACEY GAMINO PA-C 272.4 HYPERLIPIDEMIA 08/17/2010 272.4 HYPERLIPIDEMIA 08/17/2010 272.4 HYPERLIPIDEMIA 08/17/2010 272.4 HYPERLIPIDEMIA 08/17/2010 OGLESBY DO, CAMERON K 272.4 HYPERLIPIDEMIA 08/17/2010 OGLESBY DO, CAMERON K 272.4 HYPERLIPIDEMIA 08/17/2010 STACEY GAMINO PA-C 272.4 HYPERLIPIDEMIA 08/17/2010 OGLESBY DO, CAMERON K 272.4 HYPERLIPIDEMIA 08/17/2010 OGLESBY DO, CAMERON K 272.4 HYPERLIPIDEMIA 08/17/2010 OGLESBY DO, CAMERON K 272.4 HYPERLIPIDEMIA 08/17/2010 OGLESBY DO, CAMERON K 272.4 HYPERLIPIDEMIA 08/17/2010 OGLESBY DO, CAMERON K 272.4 HYPERLIPIDEMIA 08/17/2010 OGLESBY DO, CAMERON K 272.4 HYPERLIPIDEMIA 08/17/2010 CORLEY ANNUAL CAMPAIGN MANAGER, MAKSIM R 272.4 HYPERLIPIDEMIA 08/17/2010 CORLEY ANNUAL CAMPAIGN MANAGER, MAKSIM R 272.4 HYPERLIPIDEMIA 08/17/2010 OGLESBY DO, CAMERON K 272.4 HYPERLIPIDEMIA 08/17/2010 OGLESBY DO, CAMERON K 272.4 HYPERLIPIDEMIA 08/17/2010 OGLESBY DO, CAMERON K 272.4 HYPERLIPIDEMIA 08/17/2010 OGLESBY DO, CAMERON K 272.4 HYPERLIPIDEMIA 08/17/2010 OGLESBY DO, CAMERON K 272.4 HYPERLIPIDEMIA 08/17/2010 KEIRA FORD PSYD 272.4 HYPERLIPIDEMIA 08/17/2010 OGLESBY DO, CAMERON K 272.4 HYPERLIPIDEMIA 08/17/2010 JORDAN MCDONALD APRN 272.4 HYPERLIPIDEMIA 08/17/2010 STACEY GAMINO PA-C 272.4 HYPERLIPIDEMIA 08/17/2010 KEIRA FORD PSYD 272.4 HYPERLIPIDEMIA 09/16/2010 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 SYNDROME 09/16/2010 729.4 PLANTAR FASCIITIS 09/16/2010 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 SYNDROME 09/16/2010 729.4 PLANTAR FASCIITIS 09/16/2010 OGLESBY DO, CAMERON K 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 SYNDROME 09/16/2010 OGLESBY DO, CAMERON K 729.4 PLANTAR FASCIITIS 09/16/2010 OGLESBY DO, CAMERON K 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 SYNDROME 09/16/2010 OGLESBY DO, CAMERON K 729.4 PLANTAR FASCIITIS 09/16/2010 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 SYNDROME 09/16/2010 729.4 PLANTAR FASCIITIS 09/16/2010 OGLESBY DO, CAMERON K 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 SYNDROME 09/16/2010 OGLESBY DO, CAMERON K 729.4 PLANTAR FASCIITIS 09/16/2010 STACEY GAMINO PA-C 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 SYNDROME 09/16/2010 STACEY GAMINO PA-C 729.4 PLANTAR FASCIITIS 09/16/2010 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 SYNDROME 09/16/2010 729.4 PLANTAR FASCIITIS 09/16/2010 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 SYNDROME 09/16/2010 729.4 PLANTAR FASCIITIS 09/16/2010 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 SYNDROME 09/16/2010 729.4 PLANTAR FASCIITIS 09/16/2010 OGLESBY DO, CAMERON K 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 SYNDROME 09/16/2010 OGLESBY DO, CAMERON K 729.4 PLANTAR FASCIITIS 09/16/2010 OGLESBY DO, CAMERON K 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 SYNDROME 09/16/2010 OGLESBY DO, CAMERON K 729.4 PLANTAR FASCIITIS 09/16/2010 STACEY GAMINO PA-C 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 SYNDROME 09/16/2010 STACEY GAMINO PA-C 729.4 PLANTAR FASCIITIS 09/16/2010 OGLESBY DO, CAMERON K 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 SYNDROME 09/16/2010 OGLESBY DO, CAMERON K 729.4 PLANTAR FASCIITIS 09/16/2010 OGLESBY DO, CAMERON K 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 SYNDROME 09/16/2010 OGLESBY DO, CAMERON K 729.4 PLANTAR FASCIITIS 09/16/2010 OGLESBY DO, CAMERON K 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 SYNDROME 09/16/2010 OGLESBY DO, CAMERON K 729.4 PLANTAR FASCIITIS 09/16/2010 OGLESBY DO, CAMERON K 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 SYNDROME 09/16/2010 OGLESBY DO, CAMERON K 729.4 PLANTAR FASCIITIS 09/16/2010 OGLESBY DO, CAMERON K 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 SYNDROME 09/16/2010 OGLESBY DO, CAMERON K 729.4 PLANTAR FASCIITIS 09/16/2010 OGLESBY DO, CAMERON K 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 SYNDROME 09/16/2010 OGLESBY DO, CAMERON K 729.4 PLANTAR FASCIITIS 09/16/2010 BARNEY TAVERASNMAKSIM 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 09/16/2010 MAKSIM CORLEY APRN R 729.4 PLANTAR FASCIITIS 09/16/2010 DIONTE CORLEY APRNIA 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 09/16/2010 DIONTE OCRLEY APRNIA R 729.4 PLANTAR FASCIITIS 09/16/2010 OGLESBY DO, CAMERON K 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 SYNDROME 09/16/2010 OGLESBY DO, CAMERON K 729.4 PLANTAR FASCIITIS 09/16/2010 OGLESBY DO, CAMERON K 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 SYNDROME 09/16/2010 OGLESBY DO, CAMERON K 729.4 PLANTAR FASCIITIS 09/16/2010 OGLESBY DO, CAMERON K 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 SYNDROME 09/16/2010 OGLESBY DO, CAMERON K 729.4 PLANTAR FASCIITIS 09/16/2010 OGLESBY DO, CAMERON K 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 SYNDROME 09/16/2010 OGLESBY DO, CAMERON K 729.4 PLANTAR FASCIITIS 09/16/2010 OGLESBY DO, CAMERON K 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 SYNDROME 09/16/2010 OGLESBY DO, CAMERON K 729.4 PLANTAR FASCIITIS 09/16/2010 KEIRA FORD PSYD 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 SYNDROME 09/16/2010 KEIRA FORD PSYD 729.4 PLANTAR FASCIITIS 09/16/2010 OGLESBY DO, CAMERON K 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 SYNDROME 09/16/2010 OGLESBY DO, CAMERON K 729.4 PLANTAR FASCIITIS 09/16/2010 JORDAN MCDONALD APRN 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 SYNDROME 09/16/2010 JORDAN MCDONALD APRN 729.4 PLANTAR FASCIITIS 09/16/2010 STACEY GAMINO PA-C 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 SYNDROME 09/16/2010 STACEY GAMINO PA-C 729.4 PLANTAR FASCIITIS 09/16/2010 KEIRA FORD PSYD L 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 SYNDROME 09/16/2010 KEIRA FORD PSYD L 729.4 PLANTAR FASCIITIS 11/24/2010 461.9 Sinusitis Acute 11/24/2010 477.9 Allergic Rhinitis 11/24/2010 786.05 Shortness Of Breath 11/24/2010 461.9 Sinusitis Acute 11/24/2010 477.9 Allergic Rhinitis 11/24/2010 786.05 Shortness Of Breath 11/24/2010 OGLESBY DO, CAMERON K 461.9 Sinusitis Acute 11/24/2010 OGLESBY DO, CAMERON K 477.9 Allergic Rhinitis 11/24/2010 OGLESBY DO, CAMERON K 786.05 Shortness Of Breath 11/24/2010 OGLESBY DO, CAMERON K 461.9 Sinusitis Acute 11/24/2010 OGLESBY DO, CAMERON K 477.9 Allergic Rhinitis 11/24/2010 OGLESBY DO, CAMERON K 786.05 Shortness Of Breath 11/24/2010 461.9 Sinusitis Acute 11/24/2010 477.9 Allergic Rhinitis 11/24/2010 786.05 Shortness Of Breath 11/24/2010 OGLESBY DO, CAMERON K 461.9 Sinusitis Acute 11/24/2010 OGLESBY DO, CAMERON K 477.9 Allergic Rhinitis 11/24/2010 OGLESBY DO, CAMERON K 786.05 Shortness Of Breath 11/24/2010 STACEY GAMINO PA-C 461.9 Sinusitis Acute 11/24/2010 STACEY GAMINO PA-C 477.9 Allergic Rhinitis 11/24/2010 STACEY GAIMNO PA-C 786.05 Shortness Of Breath 11/24/2010 461.9 Sinusitis Acute 11/24/2010 477.9 Allergic Rhinitis 11/24/2010 786.05 Shortness Of Breath 11/24/2010 461.9 Sinusitis Acute 11/24/2010 477.9 Allergic Rhinitis 11/24/2010 786.05 Shortness Of Breath 11/24/2010 461.9 Sinusitis Acute 11/24/2010 477.9 Allergic Rhinitis 11/24/2010 786.05 Shortness Of Breath 11/24/2010 OGLESBY DO, CAMERON K 461.9 Sinusitis Acute 11/24/2010 OGLESBY DO, CAMERON K 477.9 Allergic Rhinitis 11/24/2010 OGLESBY DO, CAMERON K 786.05 Shortness Of Breath 11/24/2010 OGLESBY DO, CAMERON K 461.9 Sinusitis Acute 11/24/2010 OGLESBY DO, CAMERON K 477.9 Allergic Rhinitis 11/24/2010 OGLESBY DO, CAMERON K 786.05 Shortness Of Breath 11/24/2010 STACEY GAMINO PA-C 461.9 Sinusitis Acute 11/24/2010 STACEY GAMINO PA-C 477.9 Allergic Rhinitis 11/24/2010 STACEY GAMINO PA-C 786.05 Shortness Of Breath 11/24/2010 OGLESBY DO, CAMERON K 461.9 Sinusitis Acute 11/24/2010 OGLESBY DO, CAMERON K 477.9 Allergic Rhinitis 11/24/2010 OGLESBY DO, CAMERON K 786.05 Shortness Of Breath 11/24/2010 OGLESBY DO, CAMERON K 461.9 Sinusitis Acute 11/24/2010 OGLESBY DO, CAMERON K 477.9 Allergic Rhinitis 11/24/2010 OGLESBY DO, CAMERON K 786.05 Shortness Of Breath 11/24/2010 OGLESBY DO, CAMERON K 461.9 Sinusitis Acute 11/24/2010 OGLESBY DO, CAMERON K 477.9 Allergic Rhinitis 11/24/2010 OGLESBY DO, CAMERON K 786.05 Shortness Of Breath 11/24/2010 OGLESBY DO, CAMERON K 461.9 Sinusitis Acute 11/24/2010 OGLESBY DO, CAMERON K 477.9 Allergic Rhinitis 11/24/2010 OGLESBY DO, CAMERON K 786.05 Shortness Of Breath 11/24/2010 OGLESBY DO, CAMERON K 461.9 Sinusitis Acute 11/24/2010 OGLESBY DO, CAMERON K 477.9 Allergic Rhinitis 11/24/2010 OGLESBY DO, CAMERON K 786.05 Shortness Of Breath 11/24/2010 GOLESBY DO, CAMERON K 461.9 Sinusitis Acute 11/24/2010 OGLESBY DO, CAMERON K 477.9 Allergic Rhinitis 11/24/2010 OGLESBY DO, CAMERON K 786.05 Shortness Of Breath 11/24/2010 CORLEY ANNUAL CAMPAIGN MANAGER, MAKSIM R 461.9 Sinusitis Acute 11/24/2010 CORLEY ANNUAL CAMPAIGN MANAGER, MAKSIM R 477.9 Allergic Rhinitis 11/24/2010 CORLEY ANNUAL CAMPAIGN MANAGER, MAKSIM R 786.05 Shortness Of Breath 11/24/2010 CORLEY ANNUAL CAMPAIGN MANAGER, MAKSIM R 461.9 Sinusitis Acute 11/24/2010 CORLEY ANNUAL CAMPAIGN MANAGER, MAKSIM R 477.9 Allergic Rhinitis 11/24/2010 CORLEY ANNUAL CAMPAIGN MANAGER, MAKSIM R 786.05 Shortness Of Breath 11/24/2010 OGLESBY DO, CAMERON K 461.9 Sinusitis Acute 11/24/2010 OGLESBY DO, CAMERON K 477.9 Allergic Rhinitis 11/24/2010 OGLESBY DO, CAMERON K 786.05 Shortness Of Breath 11/24/2010 OGLESBY DO, CAMERON K 461.9 Sinusitis Acute 11/24/2010 OGLESBY DO, CAMERON K 477.9 Allergic Rhinitis 11/24/2010 OGLESBY DO, CAMERON K 786.05 Shortness Of Breath 11/24/2010 OGLESBY DO, CAMERON K 461.9 Sinusitis Acute 11/24/2010 OGLESBY DO, CAMERON K 477.9 Allergic Rhinitis 11/24/2010 OGLESBY DO, CAMERON K 786.05 Shortness Of Breath 11/24/2010 OGLESBY DO, CAMERON K 461.9 Sinusitis Acute 11/24/2010 OGLESBY DO, CAMERON K 477.9 Allergic Rhinitis 11/24/2010 OGLESBY DO, CAMERON K 786.05 Shortness Of Breath 11/24/2010 OGLESBY DO, CAMERON K 461.9 Sinusitis Acute 11/24/2010 OGLESBY DO, CAMERON K 477.9 Allergic Rhinitis 11/24/2010 OGLESBY DO, CAMERON K 786.05 Shortness Of Breath 11/24/2010 KEIRA FORD PSYD L 461.9 Sinusitis Acute 11/24/2010 KEIRA FORD PSYD ANN L 477.9 Allergic Rhinitis 11/24/2010 KEIRA FORD PSYD ANN L 786.05 Shortness Of Breath 11/24/2010 OGLESBY DO, CAMERON K 461.9 Sinusitis Acute 11/24/2010 OGLESBY DO, CAMERON K 477.9 Allergic Rhinitis 11/24/2010 OGLESBY DO, CAMERON K 786.05 Shortness Of Breath 11/24/2010 JORDAN MCDONALD APRN 461.9 Sinusitis Acute 11/24/2010 JORDAN MCDONALD APRN 477.9 Allergic Rhinitis 11/24/2010 JORDAN MCDONALD APRN 786.05 Shortness Of Breath 11/24/2010 STACEY GAMINO PA-C 461.9 Sinusitis Acute 11/24/2010 STACEY GAMINO PA-C 477.9 Allergic Rhinitis 11/24/2010 STACEY GAMINO PA-C 786.05 Shortness Of Breath 11/24/2010 KEIRA FORD PSYD ANN L 461.9 Sinusitis Acute 11/24/2010 KEIRA FORD PSYD ANN L 477.9 Allergic Rhinitis 11/24/2010 KEIRA FORD PSYD 786.05 Shortness Of Breath 11/28/2010 586 Renal Failure 11/28/2010 586 Renal Failure 11/28/2010 OGLESBY DO, CAMERON K 586 Renal Failure 11/28/2010 OGLESBY DO, CAMERON K 586 Renal Failure 11/28/2010 586 Renal Failure 11/28/2010 OGLESBY DO, CAMERON K 586 Renal Failure 11/28/2010 STACEY GAMINO PA-C 586 Renal Failure 11/28/2010 586 Renal Failure 11/28/2010 586 Renal Failure 11/28/2010 586 Renal Failure 11/28/2010 OGLESBY DO, CAMERON K 586 Renal Failure 11/28/2010 OGLESBY DO, CAMERON K 586 Renal Failure 11/28/2010 STACEY GAMINO PA-C 586 Renal Failure 11/28/2010 OGLESBY DO, CAMERON K 586 Renal Failure 11/28/2010 OGLESBY DO, CAMERON K 586 Renal Failure 11/28/2010 OGLESBY DO, CAMERON K 586 Renal Failure 11/28/2010 OGLESBY DO, CAMERON K 586 Renal Failure 11/28/2010 OGLESBY DO, CAMERON K 586 Renal Failure 11/28/2010 OGLESBY DO, CAMERON K 586 Renal Failure 11/28/2010 BARNEY LIND, MAKSIM R 586 Renal Failure 11/28/2010 BARNEY ANNUAL CAMPAIGN MANAGER, MAKSIM R 586 Renal Failure 11/28/2010 OGLESBY DO, CAMERON K 586 Renal Failure 11/28/2010 OGLESBY DO, CAMERON K 586 Renal Failure 11/28/2010 OGLESBY DO, CAMERON K 586 Renal Failure 11/28/2010 OGLESBY DO, CAMERON K 586 Renal Failure 11/28/2010 OGLESBY DO, CAMERON K 586 Renal Failure 11/28/2010 KEIRA FORD PSYD 586 Renal Failure 11/28/2010 OGLESBY DO, CAMERON K 586 Renal Failure 11/28/2010 JORDAN MCDONALD APRN 586 Renal Failure 11/28/2010 STACEY GAMINO PA-C 586 Renal Failure 11/28/2010 KEIRA FORD PSYD 586 Renal Failure 12/09/2010 787.20 Pain On Swallowing 12/09/2010 787.20 Pain On Swallowing 12/09/2010 OGLESBY DO, CAMERON K 787.20 Pain On Swallowing 12/09/2010 OGLESBY DO, CAMERON K 787.20 Pain On Swallowing 12/09/2010 787.20 Pain On Swallowing 12/09/2010 OGLESBY DO, CAMERON K 787.20 Pain On Swallowing 12/09/2010 STACEY GAMINO PA-C 787.20 Pain On Swallowing 12/09/2010 787.20 Pain On Swallowing 12/09/2010 787.20 Pain On Swallowing 12/09/2010 787.20 Pain On Swallowing 12/09/2010 OGLESBY DO, CAMERON K 787.20 Pain On Swallowing 12/09/2010 OGLESBY DO, CAMERON K 787.20 Pain On Swallowing 12/09/2010 STACEY GAMINO PA-C 787.20 Pain On Swallowing 12/09/2010 OGLESBY DO, CAMERON K 787.20 Pain On Swallowing 12/09/2010 OGLESBY DO, CAMERON K 787.20 Pain On Swallowing 12/09/2010 OGLESBY DO, CAMERON K 787.20 Pain On Swallowing 12/09/2010 OGLESBY DO, CAMERON K 787.20 Pain On Swallowing 12/09/2010 OGLESBY DO, CAMERON K 787.20 Pain On Swallowing 12/09/2010 OGLESBY DO, CAMERON K 787.20 Pain On Swallowing 12/09/2010 MAKSIM CORLEY APRN R 787.20 Pain On Swallowing 12/09/2010 MAKSIM CORLEY APRN R 787.20 Pain On Swallowing 12/09/2010 OGLESBY DO, CAMERON K 787.20 Pain On Swallowing 12/09/2010 OGLESBY DO, CAMERON K 787.20 Pain On Swallowing 12/09/2010 OGLESBY DO, CAMERON K 787.20 Pain On Swallowing 12/09/2010 OGLESBY DO, CAMERON K 787.20 Pain On Swallowing 12/09/2010 OGLESBY DO, CAMERON K 787.20 Pain On Swallowing 12/09/2010 KEIRA FORD PSYD 787.20 Pain On Swallowing 12/09/2010 OGLESBY DO, CAMERON K 787.20 Pain On Swallowing 12/09/2010 JORDAN MCDONALD APRN 787.20 Pain On Swallowing 12/09/2010 STACEY GAMINO PA-C 787.20 Pain On Swallowing 12/09/2010 KEIRA FORD PSYD 787.20 Pain On Swallowing 12/22/2010 530.6 DIVERTICULUM OF ESOPHAGUS ACQUIRED 12/22/2010 530.6 DIVERTICULUM OF ESOPHAGUS ACQUIRED 12/22/2010 OGLESBY DO, CAMERON K 530.6 DIVERTICULUM OF ESOPHAGUS ACQUIRED 12/22/2010 OGLESBY DO, CAMERON K 530.6 DIVERTICULUM OF ESOPHAGUS ACQUIRED 12/22/2010 530.6 DIVERTICULUM OF ESOPHAGUS ACQUIRED 12/22/2010 OGLESBY DO, CAMERON K 530.6 DIVERTICULUM OF ESOPHAGUS ACQUIRED 12/22/2010 STACEY GAMINO PA-C 530.6 DIVERTICULUM OF ESOPHAGUS ACQUIRED 12/22/2010 530.6 DIVERTICULUM OF ESOPHAGUS ACQUIRED 12/22/2010 530.6 DIVERTICULUM OF ESOPHAGUS ACQUIRED 12/22/2010 530.6 DIVERTICULUM OF ESOPHAGUS ACQUIRED 12/22/2010 OGLESBY DO, CAMERON K 530.6 DIVERTICULUM OF ESOPHAGUS ACQUIRED 12/22/2010 OGLESBY DO, CAMERON K 530.6 DIVERTICULUM OF ESOPHAGUS ACQUIRED 12/22/2010 STACEY GAMINO PA-C 530.6 DIVERTICULUM OF ESOPHAGUS ACQUIRED 12/22/2010 OGLESBY DO, CAMERON K 530.6 DIVERTICULUM OF ESOPHAGUS ACQUIRED 12/22/2010 OGLESBY DO, CAMERON K 530.6 DIVERTICULUM OF ESOPHAGUS ACQUIRED 12/22/2010 OGLESBY DO, CAMERON K 530.6 DIVERTICULUM OF ESOPHAGUS ACQUIRED 12/22/2010 OGLESBY DO, CAMERON K 530.6 DIVERTICULUM OF ESOPHAGUS ACQUIRED 12/22/2010 OGLESBY DO, CAMERON K 530.6 DIVERTICULUM OF ESOPHAGUS ACQUIRED 12/22/2010 OGLESBY DO, CAMERON K 530.6 DIVERTICULUM OF ESOPHAGUS ACQUIRED 12/22/2010 CORLEY ANNUAL CAMPAIGN MANAGER, MAKSIM R 530.6 DIVERTICULUM OF ESOPHAGUS ACQUIRED 12/22/2010 CORLEY ANNUAL CAMPAIGN MANAGER, MAKSIM R 530.6 DIVERTICULUM OF ESOPHAGUS ACQUIRED 12/22/2010 OGLESBY DO, CAMERON K 530.6 DIVERTICULUM OF ESOPHAGUS ACQUIRED 12/22/2010 OGLESBY DO, CAMERON K 530.6 DIVERTICULUM OF ESOPHAGUS ACQUIRED 12/22/2010 OGLESBY DO, CAMERON K 530.6 DIVERTICULUM OF ESOPHAGUS ACQUIRED 12/22/2010 OGLESBY DO, CAMERON K 530.6 DIVERTICULUM OF ESOPHAGUS ACQUIRED 12/22/2010 OGLESBY DO, CAMERON K 530.6 DIVERTICULUM OF ESOPHAGUS ACQUIRED 12/22/2010 KEIRA FORD PSYD 530.6 DIVERTICULUM OF ESOPHAGUS ACQUIRED 12/22/2010 OGLESBY DO, CAMERON K 530.6 DIVERTICULUM OF ESOPHAGUS ACQUIRED 12/22/2010 JORDAN MCDONALD APRN 530.6 DIVERTICULUM OF ESOPHAGUS ACQUIRED 12/22/2010 STACEY GAMINO PA-C 530.6 DIVERTICULUM OF ESOPHAGUS ACQUIRED 12/22/2010 KEIRA FORD PSYD 530.6 DIVERTICULUM OF ESOPHAGUS ACQUIRED 12/26/2010 285.21 ANEMIA OF CHRONIC KIDNEY DISEASE 12/26/2010 285.21 ANEMIA OF CHRONIC KIDNEY DISEASE 12/26/2010 OGLESBY DO, CAMERON K 285.21 ANEMIA OF CHRONIC KIDNEY DISEASE 12/26/2010 OGLESBY DO, CAMERON K 285.21 ANEMIA OF CHRONIC KIDNEY DISEASE 12/26/2010 285.21 ANEMIA OF CHRONIC KIDNEY DISEASE 12/26/2010 OGLESBY DO, CAMERON K 285.21 ANEMIA OF CHRONIC KIDNEY DISEASE 12/26/2010 STACEY GAMINO PA-C 285.21 ANEMIA OF CHRONIC KIDNEY DISEASE 12/26/2010 285.21 ANEMIA OF CHRONIC KIDNEY DISEASE 12/26/2010 285.21 ANEMIA OF CHRONIC KIDNEY DISEASE 12/26/2010 285.21 ANEMIA OF CHRONIC KIDNEY DISEASE 12/26/2010 OGLESBY DO, CAMERON K 285.21 ANEMIA OF CHRONIC KIDNEY DISEASE 12/26/2010 OGLESBY DO, CAMERON K 285.21 ANEMIA OF CHRONIC KIDNEY DISEASE 12/26/2010 STACEY GAMINO PA-C 285.21 ANEMIA OF CHRONIC KIDNEY DISEASE 12/26/2010 OGLESBY DO, CAMERON K 285.21 ANEMIA OF CHRONIC KIDNEY DISEASE 12/26/2010 OGLESBY DO, CAMERON K 285.21 ANEMIA OF CHRONIC KIDNEY DISEASE 12/26/2010 OGLESBY DO, CAMERON K 285.21 ANEMIA OF CHRONIC KIDNEY DISEASE 12/26/2010 OGLESBY DO, CAMERON K 285.21 ANEMIA OF CHRONIC KIDNEY DISEASE 12/26/2010 OGLESBY DO, CAMERON K 285.21 ANEMIA OF CHRONIC KIDNEY DISEASE 12/26/2010 OGLESBY DO, CAMERON K 285.21 ANEMIA OF CHRONIC KIDNEY DISEASE 12/26/2010 MAKSIM CORLEY APRN R 285.21 ANEMIA OF CHRONIC KIDNEY DISEASE 12/26/2010 MAKSIM CORLEY APRN R 285.21 ANEMIA OF CHRONIC KIDNEY DISEASE 12/26/2010 OGLESBY DO, CAMERON K 285.21 ANEMIA OF CHRONIC KIDNEY DISEASE 12/26/2010 OGLESBY DO, CAMERON K 285.21 ANEMIA OF CHRONIC KIDNEY DISEASE 12/26/2010 OGLESBY DO, CAMERON K 285.21 ANEMIA OF CHRONIC KIDNEY DISEASE 12/26/2010 OGLESBY DO, CAMERON K 285.21 ANEMIA OF CHRONIC KIDNEY DISEASE 12/26/2010 OGLESBY DO, CAMERON K 285.21 ANEMIA OF CHRONIC KIDNEY DISEASE 12/26/2010 KEIRA FORD PSYD 285.21 ANEMIA OF CHRONIC KIDNEY DISEASE 12/26/2010 OGLESBY DO CAMERON K 285.21 ANEMIA OF CHRONIC KIDNEY DISEASE 12/26/2010 JORDAN MCDONALD APRN 285.21 ANEMIA OF CHRONIC KIDNEY DISEASE 12/26/2010 STACEY GAMINO PA-C 285.21 ANEMIA OF CHRONIC KIDNEY DISEASE 12/26/2010 KEIRA FORD PSYD 285.21 ANEMIA OF CHRONIC KIDNEY DISEASE 01/03/2011 464.00 Acute Laryngitis Without Obstruction 01/03/2011 780.79 Other Malaise And Fatigue 01/03/2011 464.00 Acute Laryngitis Without Obstruction 01/03/2011 780.79 Other Malaise And Fatigue 01/03/2011 OGLESBY DO, CAMERON K 464.00 Acute Laryngitis Without Obstruction 01/03/2011 OGLESBY DO, CAMERON K 780.79 Other Malaise And Fatigue 01/03/2011 OGLESBY DO, CAMERON K 464.00 Acute Laryngitis Without Obstruction 01/03/2011 OGLESBY DO, CAMERON K 780.79 Other Malaise And Fatigue 01/03/2011 464.00 Acute Laryngitis Without Obstruction 01/03/2011 780.79 Other Malaise And Fatigue 01/03/2011 OGLESBY DO, CAMERON K 464.00 Acute Laryngitis Without Obstruction 01/03/2011 OGLESBY DO, CAMERON K 780.79 Other Malaise And Fatigue 01/03/2011 STACEY GAMINO PA-C 464.00 Acute Laryngitis Without Obstruction 01/03/2011 STACEY GAMINO PA-C 780.79 Other Malaise And Fatigue 01/03/2011 464.00 Acute Laryngitis Without Obstruction 01/03/2011 780.79 Other Malaise And Fatigue 01/03/2011 464.00 Acute Laryngitis Without Obstruction 01/03/2011 780.79 Other Malaise And Fatigue 01/03/2011 464.00 Acute Laryngitis Without Obstruction 01/03/2011 780.79 Other Malaise And Fatigue 01/03/2011 OGLESBY DO, CAMERON K 464.00 Acute Laryngitis Without Obstruction 01/03/2011 OGLESBY DO, CAMERON K 780.79 Other Malaise And Fatigue 01/03/2011 OGLESBY DO, CAMERON K 464.00 Acute Laryngitis Without Obstruction 01/03/2011 OGLESBY DO, CAMERON K 780.79 Other Malaise And Fatigue 01/03/2011 GAMINO PA-C, STACEY M 464.00 Acute Laryngitis Without Obstruction 01/03/2011 GAMINO PA-C, STACEY M 780.79 Other Malaise And Fatigue 01/03/2011 OGLESBY DO, CAMERON K 464.00 Acute Laryngitis Without Obstruction 01/03/2011 OGLESBY DO, CAMERON K 780.79 Other Malaise And Fatigue 01/03/2011 OGLESBY DO, CAMERON K 464.00 Acute Laryngitis Without Obstruction 01/03/2011 OGLESBY DO, CAMERON K 780.79 Other Malaise And Fatigue 01/03/2011 OGLESBY DO, CAMERON K 464.00 Acute Laryngitis Without Obstruction 01/03/2011 OGLESBY DO, CAMERON K 780.79 Other Malaise And Fatigue 01/03/2011 OGLESBY DO, CAMERON K 464.00 Acute Laryngitis Without Obstruction 01/03/2011 OGLESBY DO, CAMERON K 780.79 Other Malaise And Fatigue 01/03/2011 OGLESBY DO, CAMERON K 464.00 Acute Laryngitis Without Obstruction 01/03/2011 OGLESBY DO, CAMERON K 780.79 Other Malaise And Fatigue 01/03/2011 OGLESBY DO, CAMERON K 464.00 Acute Laryngitis Without Obstruction 01/03/2011 OGLESBY DO, CAMERON K 780.79 Other Malaise And Fatigue 01/03/2011 CORLEY ANNUAL CAMPAIGN MANAGER, MAKSIM R 464.00 Acute Laryngitis Without Obstruction 01/03/2011 BARNEY ANNUAL CAMPAIGN MANAGER, MAKSIM R 780.79 Other Malaise And Fatigue 01/03/2011 CORLEY ANNUAL CAMPAIGN MANAGER, MAKSIM R 464.00 Acute Laryngitis Without Obstruction 01/03/2011 CORLEY ANNUAL CAMPAIGN MANAGER, MAKSIM R 780.79 Other Malaise And Fatigue 01/03/2011 OGLESBY DO, CAMERON K 464.00 Acute Laryngitis Without Obstruction 01/03/2011 OGLESBY DO, CAMERON K 780.79 Other Malaise And Fatigue 01/03/2011 OGLESBY DO, CAMERON K 464.00 Acute Laryngitis Without Obstruction 01/03/2011 OGLESBY DO, CAMERON K 780.79 Other Malaise And Fatigue 01/03/2011 OGLESBY DO, CAMERON K 464.00 Acute Laryngitis Without Obstruction 01/03/2011 OGLESBY DO, CAMERON K 780.79 Other Malaise And Fatigue 01/03/2011 OGLESBY DO, CAMERON K 464.00 Acute Laryngitis Without Obstruction 01/03/2011 OGLESBY DO, CAMERON K 780.79 Other Malaise And Fatigue 01/03/2011 OGLESBY DO, CAMERON K 464.00 Acute Laryngitis Without Obstruction 01/03/2011 OGLESBY DO, CAMERON K 780.79 Other Malaise And Fatigue 01/03/2011 KEIRA FORD PSYD 464.00 Acute Laryngitis Without Obstruction 01/03/2011 KEIRA FORD PSYD 780.79 Other Malaise And Fatigue 01/03/2011 OGLESBY DO, CAMERON K 464.00 Acute Laryngitis Without Obstruction 01/03/2011 MENDEL WASSERMAN, CAMERON K 780.79 Other Malaise And Fatigue 01/03/2011 JORDAN MCDONALD APRN 464.00 Acute Laryngitis Without Obstruction 01/03/2011 JORDAN MCDONALD APRN 780.79 Other Malaise And Fatigue 01/03/2011 STACEY GAMINO PA-C 464.00 Acute Laryngitis Without Obstruction 01/03/2011 STACEY GAMINO PA-C 780.79 Other Malaise And Fatigue 01/03/2011 KEIRA FORD PSYD 464.00 Acute Laryngitis Without Obstruction 01/03/2011 KEIRA FORD PSYD 780.79 Other Malaise And Fatigue 01/15/2011 Ot 285.1 AC POSTHEMORRHAG ANEMIA 01/15/2011 Ot 403.90 HYPTNSV CHR KID DIS, UNSPEC, W CHR KD ST 01/15/2011 Ot 455.2 INT HEMRRHOID W COMP NEC 01/15/2011 Ot 530.11 REFLUX ESOPHAGITIS 01/15/2011 Ot 530.6 ACQ ESOPHAG DIVERTICULUM 01/15/2011 Ot 530.81 ESOPHAGEAL REFLUX 01/15/2011 Ot 535.50 UNSP GASTRITIS GASTRODUODENITIS W/O ME 01/15/2011 Ot 553.3 DIAPHRAGMATIC HERNIA 01/15/2011 Ot 558.9 NONINF GASTROENTERIT NEC 01/15/2011 Ot 584.9 ACUTE RENAL FAILURE, UNSPECIFIED 01/15/2011 Ot 585.9 CHRONIC KIDNEY DISEASE, UNSPECIFIED 01/15/2011 Ot 729.1 MYALGIA AND MYOSITIS NOS 01/15/2011 Ot 782.3 EDEMA 01/15/2011 Ot V58.69 OTH MED,LT,CURRENT USE 01/17/2011 535.50 Unspecified Gastritis And Gastroduodenitis (without Hemorrhage) 01/17/2011 535.50 Unspecified Gastritis And Gastroduodenitis (without Hemorrhage) 01/17/2011 CAMERON OGLESBY DO 535.50 Unspecified Gastritis And Gastroduodenitis ( without Hemorrhage) 01/17/2011 CAMERON OGLESBY DO 535.50 Unspecified Gastritis And Gastroduodenitis ( without Hemorrhage) 01/17/2011 535.50 Unspecified Gastritis And Gastroduodenitis (without Hemorrhage) 01/17/2011 CAMERON OGLESBY DO 535.50 Unspecified Gastritis And Gastroduodenitis ( without Hemorrhage) 01/17/2011 STACEY GAMINO PA-C 535.50 Unspecified Gastritis And Gastroduodenitis (without Hemorrhage) 01/17/2011 535.50 Unspecified Gastritis And Gastroduodenitis (without Hemorrhage) 01/17/2011 535.50 Unspecified Gastritis And Gastroduodenitis (without Hemorrhage) 01/17/2011 535.50 Unspecified Gastritis And Gastroduodenitis (without Hemorrhage) 01/17/2011 CAMERON OGLESBY DO 535.50 Unspecified Gastritis And Gastroduodenitis ( without Hemorrhage) 01/17/2011 CAMERON OGLESBY DO 535.50 Unspecified Gastritis And Gastroduodenitis ( without Hemorrhage) 01/17/2011 STACEY GAMINO PA-C 535.50 Unspecified Gastritis And Gastroduodenitis (without Hemorrhage) 01/17/2011 CAMERON OGLESBY DO 535.50 Unspecified Gastritis And Gastroduodenitis ( without Hemorrhage) 01/17/2011 CAMERON OGLESBY DO 535.50 Unspecified Gastritis And Gastroduodenitis ( without Hemorrhage) 01/17/2011 CAMERON OGLESBY DO 535.50 Unspecified Gastritis And Gastroduodenitis ( without Hemorrhage) 01/17/2011 OGLESBY DO, CAMERON K 535.50 Unspecified Gastritis And Gastroduodenitis ( without Hemorrhage) 01/17/2011 OGLESBY DO, CAMERON K 535.50 Unspecified Gastritis And Gastroduodenitis ( without Hemorrhage) 01/17/2011 OGLESBY DO, CAMERON K 535.50 Unspecified Gastritis And Gastroduodenitis ( without Hemorrhage) 01/17/2011 MAKSIM CORLEY APRN R 535.50 Unspecified Gastritis And Gastroduodenitis (without Hemorrhage) 01/17/2011 MAKSIM CORLEY APRN R 535.50 Unspecified Gastritis And Gastroduodenitis (without Hemorrhage) 01/17/2011 OGLESBY DO, CAMERON K 535.50 Unspecified Gastritis And Gastroduodenitis ( without Hemorrhage) 01/17/2011 OGLESBY DO, CAMERON K 535.50 Unspecified Gastritis And Gastroduodenitis ( without Hemorrhage) 01/17/2011 OGLESBY DO, CAMERON K 535.50 Unspecified Gastritis And Gastroduodenitis ( without Hemorrhage) 01/17/2011 OGLESBY DO, CAMERON K 535.50 Unspecified Gastritis And Gastroduodenitis ( without Hemorrhage) 01/17/2011 OGLESBY DO, CAMERON K 535.50 Unspecified Gastritis And Gastroduodenitis ( without Hemorrhage) 01/17/2011 KEIRA FORD PSYD 535.50 Unspecified Gastritis And Gastroduodenitis (without Hemorrhage) 01/17/2011 OGLESBY DO, CAMERON K 535.50 Unspecified Gastritis And Gastroduodenitis ( without Hemorrhage) 01/17/2011 JORDAN MCDONALD APRN 535.50 Unspecified Gastritis And Gastroduodenitis (without Hemorrhage) 01/17/2011 STACEY GAMINO PA-C 535.50 Unspecified Gastritis And Gastroduodenitis (without Hemorrhage) 01/17/2011 KEIRA FORD PSYD 535.50 Unspecified Gastritis And Gastroduodenitis (without Hemorrhage) 01/24/2011 333.94 RESTLESS LEGS SYNDROME 01/24/2011 530.81 ESOPHAGEAL REFLUX 01/24/2011 585.3 CHRONIC KIDNEY DISEASE STAGE 3 01/24/2011 787.91 Diarrhea 01/24/2011 333.94 RESTLESS LEGS SYNDROME 01/24/2011 530.81 ESOPHAGEAL REFLUX 01/24/2011 585.3 CHRONIC KIDNEY DISEASE STAGE 3 01/24/2011 787.91 Diarrhea 01/24/2011 OGLESBY DO, CAMERON K 333.94 RESTLESS LEGS SYNDROME 01/24/2011 OGLESBY DO, CAMERON K 530.81 ESOPHAGEAL REFLUX 01/24/2011 OGLESBY DO, CAMERON K 585.3 CHRONIC KIDNEY DISEASE STAGE 3 01/24/2011 OGLESBY DO, CAMERON K 787.91 Diarrhea 01/24/2011 OGLESBY DO, CAMERON K 333.94 RESTLESS LEGS SYNDROME 01/24/2011 OGLESBY DO, CAMERON K 530.81 ESOPHAGEAL REFLUX 01/24/2011 OGLESBY DO, CAMERON K 585.3 CHRONIC KIDNEY DISEASE STAGE 3 01/24/2011 OGLESBY DO, CAMERON K 787.91 Diarrhea 01/24/2011 333.94 RESTLESS LEGS SYNDROME 01/24/2011 530.81 ESOPHAGEAL REFLUX 01/24/2011 585.3 CHRONIC KIDNEY DISEASE STAGE 3 01/24/2011 787.91 Diarrhea 01/24/2011 OGLESBY DO, CAMERON K 333.94 RESTLESS LEGS SYNDROME 01/24/2011 OGLESBY DO, CAMERON K 530.81 ESOPHAGEAL REFLUX 01/24/2011 OGLESBY DO, CAMERON K 585.3 CHRONIC KIDNEY DISEASE STAGE 3 01/24/2011 OGLESBY DO, CAMERON K 787.91 Diarrhea 01/24/2011 STACEY GAMINO PA-C 333.94 RESTLESS LEGS SYNDROME 01/24/2011 STACEY GAMINO PA-C 530.81 ESOPHAGEAL REFLUX 01/24/2011 STACEY GAMINO PA-C 585.3 CHRONIC KIDNEY DISEASE STAGE 3 01/24/2011 STACEY GAMINO PA-C 787.91 Diarrhea 01/24/2011 333.94 RESTLESS LEGS SYNDROME 01/24/2011 530.81 ESOPHAGEAL REFLUX 01/24/2011 585.3 CHRONIC KIDNEY DISEASE STAGE 3 01/24/2011 787.91 Diarrhea 01/24/2011 333.94 RESTLESS LEGS SYNDROME 01/24/2011 530.81 ESOPHAGEAL REFLUX 01/24/2011 585.3 CHRONIC KIDNEY DISEASE STAGE 3 01/24/2011 787.91 Diarrhea 01/24/2011 333.94 RESTLESS LEGS SYNDROME 01/24/2011 530.81 ESOPHAGEAL REFLUX 01/24/2011 585.3 CHRONIC KIDNEY DISEASE STAGE 3 01/24/2011 787.91 Diarrhea 01/24/2011 OGLESBY DO, CAMERON K 333.94 RESTLESS LEGS SYNDROME 01/24/2011 OGLESBY DO, CAMERON K 530.81 ESOPHAGEAL REFLUX 01/24/2011 OGLESBY DO, CAMERON K 585.3 CHRONIC KIDNEY DISEASE STAGE 3 01/24/2011 OGLESBY DO, CAMERON K 787.91 Diarrhea 01/24/2011 OGLESBY DO, CAMERON K 333.94 RESTLESS LEGS SYNDROME 01/24/2011 OGLESBY DO, CAMERON K 530.81 ESOPHAGEAL REFLUX 01/24/2011 OGLESBY DO, CAMERON K 585.3 CHRONIC KIDNEY DISEASE STAGE 3 01/24/2011 OGLESBY DO, CAMERON K 787.91 Diarrhea 01/24/2011 GAMINO PA-C, STACEY M 333.94 RESTLESS LEGS SYNDROME 01/24/2011 GAMINO PA-C, STACEY M 530.81 ESOPHAGEAL REFLUX 01/24/2011 GAMINO PA-C, STACEY M 585.3 CHRONIC KIDNEY DISEASE STAGE 3 01/24/2011 GAMINO PA-C, STACEY M 787.91 Diarrhea 01/24/2011 OGLESBY DO, CAMERON K 333.94 RESTLESS LEGS SYNDROME 01/24/2011 OGLESBY DO, CAMERON K 530.81 ESOPHAGEAL REFLUX 01/24/2011 OGLESBY DO, CAMERON K 585.3 CHRONIC KIDNEY DISEASE STAGE 3 01/24/2011 OGLESBY DO, CAMERNO K 787.91 Diarrhea 01/24/2011 OGLESBY DO, CAMERON K 333.94 RESTLESS LEGS SYNDROME 01/24/2011 OGLESBY DO, CAMERON K 530.81 ESOPHAGEAL REFLUX 01/24/2011 OGLESBY DO, CAMERON K 585.3 CHRONIC KIDNEY DISEASE STAGE 3 01/24/2011 OGLESBY DO, CAMERON K 787.91 Diarrhea 01/24/2011 OGLESBY DO, CAMERON K 333.94 RESTLESS LEGS SYNDROME 01/24/2011 OGLESBY DO, CAMERON K 530.81 ESOPHAGEAL REFLUX 01/24/2011 OGLESBY DO, CAMERON K 585.3 CHRONIC KIDNEY DISEASE STAGE 3 01/24/2011 OGLESBY DO, CAMERON K 787.91 Diarrhea 01/24/2011 OGLESBY DO, CAMERON K 333.94 RESTLESS LEGS SYNDROME 01/24/2011 OGLESBY DO, CAMERON K 530.81 ESOPHAGEAL REFLUX 01/24/2011 OGLESBY DO, CAMERON K 585.3 CHRONIC KIDNEY DISEASE STAGE 3 01/24/2011 OGLESBY DO, CAMERON K 787.91 Diarrhea 01/24/2011 OGLESBY DO, CAMERON K 333.94 RESTLESS LEGS SYNDROME 01/24/2011 OGLESBY DO, CAMERON K 530.81 ESOPHAGEAL REFLUX 01/24/2011 OGLESBY DO, CAMERON K 585.3 CHRONIC KIDNEY DISEASE STAGE 3 01/24/2011 OGLESBY DO, CAMERON K 787.91 Diarrhea 01/24/2011 OGLESBY DO, CAMERON K 333.94 RESTLESS LEGS SYNDROME 01/24/2011 OGLESBY DO, CAMERON K 530.81 ESOPHAGEAL REFLUX 01/24/2011 OGLESBY DO, CAMERON K 585.3 CHRONIC KIDNEY DISEASE STAGE 3 01/24/2011 OGLESBY DO, CAMERON K 787.91 Diarrhea 01/24/2011 CORLEY ANNUAL CAMPAIGN MANAGER, MKASIM R 333.94 RESTLESS LEGS SYNDROME 01/24/2011 CORLEY ANNUAL CAMPAIGN MANAGER, MAKSIM R 530.81 ESOPHAGEAL REFLUX 01/24/2011 CORLEY ANNUAL CAMPAIGN MANAGER, MAKSIM R 585.3 CHRONIC KIDNEY DISEASE STAGE 3 01/24/2011 CORLEY ANNUAL CAMPAIGN MANAGER, MAKSIM R 787.91 Diarrhea 01/24/2011 CORLEY ANNUAL CAMPAIGN MANAGER, MAKSIM R 333.94 RESTLESS LEGS SYNDROME 01/24/2011 CORLEY ANNUAL CAMPAIGN MANAGER, MAKSIM R 530.81 ESOPHAGEAL REFLUX 01/24/2011 CORLEY ANNUAL CAMPAIGN MANAGER, MAKSIM R 585.3 CHRONIC KIDNEY DISEASE STAGE 3 01/24/2011 CORLEY ANNUAL CAMPAIGN MANAGER, MAKSIM R 787.91 Diarrhea 01/24/2011 OGLESBY DO, CAMERON K 333.94 RESTLESS LEGS SYNDROME 01/24/2011 OGLESBY DO, CAMERON K 530.81 ESOPHAGEAL REFLUX 01/24/2011 OGLESBY DO, CAMERON K 585.3 CHRONIC KIDNEY DISEASE STAGE 3 01/24/2011 OGLESBY DO, CAMERON K 787.91 Diarrhea 01/24/2011 OGLESBY DO, CAMERON K 333.94 RESTLESS LEGS SYNDROME 01/24/2011 OGLESBY DO, CAMERON K 530.81 ESOPHAGEAL REFLUX 01/24/2011 OGLESBY DO, CAMERON K 585.3 CHRONIC KIDNEY DISEASE STAGE 3 01/24/2011 OGLESBY DO, CAMERON K 787.91 Diarrhea 01/24/2011 OGLESBY DO, CAMERON K 333.94 RESTLESS LEGS SYNDROME 01/24/2011 OGLESBY DO, CAMERON K 530.81 ESOPHAGEAL REFLUX 01/24/2011 OGLESBY DO, CAMERON K 585.3 CHRONIC KIDNEY DISEASE STAGE 3 01/24/2011 OGLESBY DO, CAMERON K 787.91 Diarrhea 01/24/2011 OGLESBY DO, CAMERON K 333.94 RESTLESS LEGS SYNDROME 01/24/2011 OGLESBY DO, CAMERON K 530.81 ESOPHAGEAL REFLUX 01/24/2011 OGLESBY DO, CAMERON K 585.3 CHRONIC KIDNEY DISEASE STAGE 3 01/24/2011 OGLESBY DO, CAMERON K 787.91 Diarrhea 01/24/2011 OGLESBY DO, CAMERON K 333.94 RESTLESS LEGS SYNDROME 01/24/2011 OGLESBY DO, CAMERON K 530.81 ESOPHAGEAL REFLUX 01/24/2011 OGLESBY DO, CAMERON K 585.3 CHRONIC KIDNEY DISEASE STAGE 3 01/24/2011 OGLESBY DO, CAMERON K 787.91 Diarrhea 01/24/2011 KEIRA FORD PSYD L 333.94 RESTLESS LEGS SYNDROME 01/24/2011 KEIRA FORD PSYD L 530.81 ESOPHAGEAL REFLUX 01/24/2011 KEIRA FORD PSYD L 585.3 CHRONIC KIDNEY DISEASE STAGE 3 01/24/2011 KEIRA FORD PSYD L 787.91 Diarrhea 01/24/2011 OGLESBY DO, CAMERON K 333.94 RESTLESS LEGS SYNDROME 01/24/2011 OGLESBY DO, CAMERON K 530.81 ESOPHAGEAL REFLUX 01/24/2011 OGLESBY DO, CAMERON K 585.3 CHRONIC KIDNEY DISEASE STAGE 3 01/24/2011 OGLESBY DO, CAMERON K 787.91 Diarrhea 01/24/2011 JORDAN MCDONALD APRN 333.94 RESTLESS LEGS SYNDROME 01/24/2011 JORDAN MCDONALD APRN 530.81 ESOPHAGEAL REFLUX 01/24/2011 JORDAN MCDONALD APRN 585.3 CHRONIC KIDNEY DISEASE STAGE 3 01/24/2011 JORDAN MCDONALD APRN 787.91 Diarrhea 01/24/2011 STACEY GAMINO PA-C 333.94 RESTLESS LEGS SYNDROME 01/24/2011 STACEY GAMINO PA-C 530.81 ESOPHAGEAL REFLUX 01/24/2011 STACEY GAMINO PA-C 585.3 CHRONIC KIDNEY DISEASE STAGE 3 01/24/2011 STACEY GAMINO PA-C 787.91 Diarrhea 01/24/2011 KEIRA FORD PSYD L 333.94 RESTLESS LEGS SYNDROME 01/24/2011 KEIRA FORD PSYD ANN L 530.81 ESOPHAGEAL REFLUX 01/24/2011 KEIRA FORD PSYD L 585.3 CHRONIC KIDNEY DISEASE STAGE 3 01/24/2011 KEIRA FORD PSYD L 787.91 Diarrhea 02/10/2011 Ot 490 BRONCHITIS NOS 02/10/2011 Ot 786.2 COUGH 02/21/2011 458.0 Orthostatic Hypotension 02/21/2011 458.0 Orthostatic Hypotension 02/21/2011 OGLESBY DO, CAMERON K 458.0 Orthostatic Hypotension 02/21/2011 OGLESBY DO, CAMERON K 458.0 Orthostatic Hypotension 02/21/2011 458.0 Orthostatic Hypotension 02/21/2011 OGLESBY DO, CAMERON K 458.0 Orthostatic Hypotension 02/21/2011 STACEY GAMINO PA-C 458.0 Orthostatic Hypotension 02/21/2011 458.0 Orthostatic Hypotension 02/21/2011 458.0 Orthostatic Hypotension 02/21/2011 458.0 Orthostatic Hypotension 02/21/2011 OGLESBY DO, CAMERON K 458.0 Orthostatic Hypotension 02/21/2011 OGLESBY DO, CAMERON K 458.0 Orthostatic Hypotension 02/21/2011 STACEY GAMINO PA-C 458.0 Orthostatic Hypotension 02/21/2011 OGLESBY DO, CAMERON K 458.0 Orthostatic Hypotension 02/21/2011 OGLESBY DO, CAMERON K 458.0 Orthostatic Hypotension 02/21/2011 OGLESBY DO, CAMERON K 458.0 Orthostatic Hypotension 02/21/2011 OGLESBY DO, CAMERON K 458.0 Orthostatic Hypotension 02/21/2011 OGLESBY DO, CAMERON K 458.0 Orthostatic Hypotension 02/21/2011 OGLESBY DO, CAMERON K 458.0 Orthostatic Hypotension 02/21/2011 CORLEY [employer]NU[employer]PA[employer] MANAGER, MAKSIM R 458.0 Orthostatic Hypotension 02/21/2011 CORLEY ANNUAL CAMPAIGN 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, MAKSIM R 458.0 Orthostatic Hypotension 02/21/2011 OGLESBY DO, CAMERON K 458.0 Orthostatic Hypotension 02/21/2011 OGLESBY DO, CAMERON K 458.0 Orthostatic Hypotension 02/21/2011 OGLESBY DO, CAMERON K 458.0 Orthostatic Hypotension 02/21/2011 OGLESBY DO, CAMERON K 458.0 Orthostatic Hypotension 02/21/2011 OGLESBY DO, CAMERON K 458.0 Orthostatic Hypotension 02/21/2011 KEIRA FORD PSYD L 458.0 Orthostatic Hypotension 02/21/2011 OGLESBY DO, CAMERON K 458.0 Orthostatic Hypotension 02/21/2011 JORDAN MCDONALD APRN 458.0 Orthostatic Hypotension 02/21/2011 STACEY GAMINO PA-C 458.0 Orthostatic Hypotension 02/21/2011 KEIRA FORD PSYD L 458.0 Orthostatic Hypotension 03/23/2011 276.50 Volume Depletion Unspecified 03/23/2011 461.9 Sinusitis Acute 03/23/2011 276.50 Volume Depletion Unspecified 03/23/2011 461.9 Sinusitis Acute 03/23/2011 OGLESBY DO, CAMERON K 276.50 Volume Depletion Unspecified 03/23/2011 OGLESBY DO, CAMERON K 461.9 Sinusitis Acute 03/23/2011 OGLESBY DO, CAMERON K 276.50 Volume Depletion Unspecified 03/23/2011 OGLESBY DO, CAMERON K 461.9 Sinusitis Acute 03/23/2011 276.50 Volume Depletion Unspecified 03/23/2011 461.9 Sinusitis Acute 03/23/2011 OGLESBY DO, CAMERON K 276.50 Volume Depletion Unspecified 03/23/2011 OGLESBY DO, CAMERON K 461.9 Sinusitis Acute 03/23/2011 STACEY GAMINO PA-C 276.50 Volume Depletion Unspecified 03/23/2011 STACEY GAMINO PA-C 461.9 Sinusitis Acute 03/23/2011 276.50 Volume Depletion Unspecified 03/23/2011 461.9 Sinusitis Acute 03/23/2011 276.50 Volume Depletion Unspecified 03/23/2011 461.9 Sinusitis Acute 03/23/2011 276.50 Volume Depletion Unspecified 03/23/2011 461.9 Sinusitis Acute 03/23/2011 OGLESBY DO, CAMERON K 276.50 Volume Depletion Unspecified 03/23/2011 OGLESBY DO, CAMERON K 461.9 Sinusitis Acute 03/23/2011 OGLESBY DO, CAMERON K 276.50 Volume Depletion Unspecified 03/23/2011 OGLESBY DO, CAMERON K 461.9 Sinusitis Acute 03/23/2011 STACEY GAMINO PA-C 276.50 Volume Depletion Unspecified 03/23/2011 STACEY GAMINO PA-C 461.9 Sinusitis Acute 03/23/2011 OGLESBY DO, CAMERON K 276.50 Volume Depletion Unspecified 03/23/2011 OGLESBY DO, CAMERON K 461.9 Sinusitis Acute 03/23/2011 OGLESBY DO, CAMERON K 276.50 Volume Depletion Unspecified 03/23/2011 OGLESBY DO, CAMERON K 461.9 Sinusitis Acute 03/23/2011 OGLESBY DO, CAMERON K 276.50 Volume Depletion Unspecified 03/23/2011 OGLESBY DO, CAMERON K 461.9 Sinusitis Acute 03/23/2011 OGLESBY DO, CAMERON K 276.50 Volume Depletion Unspecified 03/23/2011 OGLESBY DO, CAMERON K 461.9 Sinusitis Acute 03/23/2011 OGLESBY DO, CAMERON K 276.50 Volume Depletion Unspecified 03/23/2011 OGLESBY DO, CAMERON K 461.9 Sinusitis Acute 03/23/2011 OGLESBY DO, CAMERON K 276.50 Volume Depletion Unspecified 03/23/2011 OGLESBY DO, CAMERON K 461.9 Sinusitis Acute 03/23/2011 CORLEY ANNUAL CAMPAIGN MANAGER, MAKSIM R 276.50 Volume Depletion Unspecified 03/23/2011 CORLEY ANNUAL CAMPAIGN MANAGER, MAKSIM R 461.9 Sinusitis Acute 03/23/2011 CORLEY ANNUAL CAMPAIGN MANAGER, MAKSIM R 276.50 Volume Depletion Unspecified 03/23/2011 CORLEY ANNUAL CAMPAIGN MANAGER, MAKSIM R 461.9 Sinusitis Acute 03/23/2011 OGLESBY DO, CAMERON K 276.50 Volume Depletion Unspecified 03/23/2011 OGLESBY DO, CAMERON K 461.9 Sinusitis Acute 03/23/2011 OGLESBY DO, CAMERON K 276.50 Volume Depletion Unspecified 03/23/2011 OGLESBY DO, CAMERON K 461.9 Sinusitis Acute 03/23/2011 OGLESBY DO, CAMERON K 276.50 Volume Depletion Unspecified 03/23/2011 OGLESBY DO, CAMERON K 461.9 Sinusitis Acute 03/23/2011 OGLESBY DO, CAMERON K 276.50 Volume Depletion Unspecified 03/23/2011 OGLESBY DO, CAMERON K 461.9 Sinusitis Acute 03/23/2011 OGLESBY DO, CAMERON K 276.50 Volume Depletion Unspecified 03/23/2011 OGLESBY DO, CAMERON K 461.9 Sinusitis Acute 03/23/2011 KEIRA FORD PSYD 276.50 Volume Depletion Unspecified 03/23/2011 KEIRA FORD PSYD 461.9 Sinusitis Acute 03/23/2011 GOLESBY DO, CAMERON K 276.50 Volume Depletion Unspecified 03/23/2011 OGLESBY DO, CAMERON K 461.9 Sinusitis Acute 03/23/2011 JORDAN MCDONALD APRN 276.50 Volume Depletion Unspecified 03/23/2011 JORDAN MCDONALD APRN 461.9 Sinusitis Acute 03/23/2011 STACEY GAMINO PA-C 276.50 Volume Depletion Unspecified 03/23/2011 STACEY GAMINO PA-C 461.9 Sinusitis Acute 03/23/2011 KEIRA FORD PSYD L 276.50 Volume Depletion Unspecified 03/23/2011 KEIRA FORD PSYD L 461.9 Sinusitis Acute 04/20/2011 382.9 Unspecified Otitis Media 04/20/2011 382.9 Unspecified Otitis Media 04/20/2011 OGLESBY DO, CAMERON K 382.9 Unspecified Otitis Media 04/20/2011 OGLESBY DO, CAMERON K 382.9 Unspecified Otitis Media 04/20/2011 382.9 Unspecified Otitis Media 04/20/2011 OGLESBY DO, CAMERON K 382.9 Unspecified Otitis Media 04/20/2011 STACEY GAMINO PA-C 382.9 Unspecified Otitis Media 04/20/2011 382.9 Unspecified Otitis Media 04/20/2011 382.9 Unspecified Otitis Media 04/20/2011 382.9 Unspecified Otitis Media 04/20/2011 OGLESBY DO, CAMERON K 382.9 Unspecified Otitis Media 04/20/2011 OGLESBY DO, CAMERON K 382.9 Unspecified Otitis Media 04/20/2011 STACEY GAMINO PA-C 382.9 Unspecified Otitis Media 04/20/2011 OGLESBY DO, CAMERON K 382.9 Unspecified Otitis Media 04/20/2011 OGLESBY DO, CAMERON K 382.9 Unspecified Otitis Media 04/20/2011 OGLESBY DO, CAMERON K 382.9 Unspecified Otitis Media 04/20/2011 OGLESBY DO, CAMERON K 382.9 Unspecified Otitis Media 04/20/2011 OGLESBY DO, CAMERON K 382.9 Unspecified Otitis Media 04/20/2011 OGLESBY DO, CAMERON K 382.9 Unspecified Otitis Media 04/20/2011 CORLEY ANNUAL CAMPAIGN MANAGER, MAKSIM R 382.9 Unspecified Otitis Media 04/20/2011 MAKSIM CORLEY APRN R 382.9 Unspecified Otitis Media 04/20/2011 OGLESBY DO, CAMERON K 382.9 Unspecified Otitis Media 04/20/2011 OGLESBY DO, CAMERON K 382.9 Unspecified Otitis Media 04/20/2011 OGLESBY DO, CAMERON K 382.9 Unspecified Otitis Media 04/20/2011 OGLESBY DO, CAMERON K 382.9 Unspecified Otitis Media 04/20/2011 OGLESBY DO, CAMERON K 382.9 Unspecified Otitis Media 04/20/2011 KEIRA FORD PSYD 382.9 Unspecified Otitis Media 04/20/2011 OGLESBY DO, CAMERON K 382.9 Unspecified Otitis Media 04/20/2011 JORDAN MCDONALD APRN 382.9 Unspecified Otitis Media 04/20/2011 STACEY GAMINO PA-C 382.9 Unspecified Otitis Media 04/20/2011 KEIRA FORD PSYD 382.9 Unspecified Otitis Media 05/19/2011 782.3 EDEMA 05/19/2011 786.2 Cough 05/19/2011 782.3 EDEMA 05/19/2011 786.2 Cough 05/19/2011 OGLESBY DO, CAMERON K 782.3 EDEMA 05/19/2011 OGLESBY DO, CAMERON K 786.2 Cough 05/19/2011 OGLESBY DO, CAMERON K 782.3 EDEMA 05/19/2011 OGLESBY DO, CAMERON K 786.2 Cough 05/19/2011 782.3 EDEMA 05/19/2011 786.2 Cough 05/19/2011 OGLESBY DO, CAMERON K 782.3 EDEMA 05/19/2011 OGLESBY DO, CAMERON K 786.2 Cough 05/19/2011 STACEY GAMINO PA-C 782.3 EDEMA 05/19/2011 STACEY GAMINO PA-C 786.2 Cough 05/19/2011 782.3 EDEMA 05/19/2011 786.2 Cough 05/19/2011 782.3 EDEMA 05/19/2011 786.2 Cough 05/19/2011 782.3 EDEMA 05/19/2011 786.2 Cough 05/19/2011 OGLESBY DO, CAMERON K 782.3 EDEMA 05/19/2011 OGLESBY DO, CAMERON K 786.2 Cough 05/19/2011 OGLESBY DO, CAMERON K 782.3 EDEMA 05/19/2011 OGLESBY DO, CAMERON K 786.2 Cough 05/19/2011 STACEY GAMINO PA-C 782.3 EDEMA 05/19/2011 STACEY GAMINO PA-C 786.2 Cough 05/19/2011 OGLESBY DO, CAMERON K 782.3 EDEMA 05/19/2011 OGLESBY DO, CAMERON K 786.2 Cough 05/19/2011 OGLESBY DO, CAMERON K 782.3 EDEMA 05/19/2011 OGLESBY DO, CAMERON K 786.2 Cough 05/19/2011 OGLESBY DO, CAMERON K 782.3 EDEMA 05/19/2011 OGLESBY DO, CAMERON K 786.2 Cough 05/19/2011 OGLESBY DO, CAMERON K 782.3 EDEMA 05/19/2011 OGLESBY DO, CAMERON K 786.2 Cough 05/19/2011 OGLESBY DO, CAMERON K 782.3 EDEMA 05/19/2011 OGLESBY DO, CAMERON K 786.2 Cough 05/19/2011 OGLESBY DO, CAMERON K 782.3 EDEMA 05/19/2011 OGLESBY DO, CAMERON K 786.2 Cough 05/19/2011 CORLEY ANNUAL CAMPAIGN MANAGER, MAKSIM R 782.3 EDEMA 05/19/2011 CORLEY ANNUAL CAMPAIGN MANAGER, MAKSIM R 786.2 Cough 05/19/2011 CORLEY ANNUAL CAMPAIGN MANAGER, MAKSIM R 782.3 EDEMA 05/19/2011 CORLEY ANNUAL CAMPAIGN MANAGER, MAKSIM R 786.2 Cough 05/19/2011 OGLESBY DO, CAMERON K 782.3 EDEMA 05/19/2011 OGLESBY DO, CAMERON K 786.2 Cough 05/19/2011 OGLESBY DO, CAMERON K 782.3 EDEMA 05/19/2011 OGLESBY DO, CAMERON K 786.2 Cough 05/19/2011 OGLESBY DO, CAMERON K 782.3 EDEMA 05/19/2011 OGLESBY DO, CAMERON K 786.2 Cough 05/19/2011 OGLESBY DO, CAMERON K 782.3 EDEMA 05/19/2011 OGLESBY DO, CAMERON K 786.2 Cough 05/19/2011 OGLESBY DO, CAMERON K 782.3 EDEMA 05/19/2011 OGLESBY DO, CAMERON K 786.2 Cough 05/19/2011 KEIRA FORD PSYD 782.3 EDEMA 05/19/2011 KEIRA FORD PSYD ANN L 786.2 Cough 05/19/2011 ESTHELA OGLESBY DOA K 782.3 EDEMA 05/19/2011 OGLESBY ESTHELA WASSERMANA K 786.2 Cough 05/19/2011 JORDAN MCDONALD APRN 782.3 EDEMA 05/19/2011 JORDAN MCDONALD APRN 786.2 Cough 05/19/2011 STACEY GAMINO PA-C M 782.3 EDEMA 05/19/2011 STACEY GAMINO PA-C M 786.2 Cough 05/19/2011 KEIRA FORD PSYD ANN L 782.3 EDEMA 05/19/2011 KEIRA FORD PSYD ANN L 786.2 Cough 06/23/2011 311 DEPRESSIVE DISORDER NOT ELSEWHERE CLASSIFIED 06/23/2011 780.52 insomnia 06/23/2011 V41.0 Vision Problems 06/23/2011 V58.69 LONG-TERM (CURRENT) USE OF OTHER MEDICATIONS 06/23/2011 311 DEPRESSIVE DISORDER NOT ELSEWHERE CLASSIFIED 06/23/2011 780.52 insomnia 06/23/2011 V41.0 Vision Problems 06/23/2011 V58.69 LONG-TERM (CURRENT) USE OF OTHER MEDICATIONS 06/23/2011 CAMERON OGLESBY DO 311 DEPRESSIVE DISORDER NOT ELSEWHERE CLASSIFIED 06/23/2011 CAMERON OGLESBY DO 780.52 insomnia 06/23/2011 ESTHELA OGLESBY DOA Carolee V41.0 Vision Problems 06/23/2011 MENDEL WASSERMAN CAMERON K V58.69 LONG-TERM (CURRENT) USE OF OTHER MEDICATIONS 06/23/2011 CAMERON OGLESBY DO 311 DEPRESSIVE DISORDER NOT ELSEWHERE CLASSIFIED 06/23/2011 CAMERON OGLESBY DO 780.52 insomnia 06/23/2011 ESTHELA OGLESBY DOA K V41.0 Vision Problems 06/23/2011 ESTHELA OGLESBY DOA K V58.69 LONG-TERM (CURRENT) USE OF OTHER MEDICATIONS 06/23/2011 311 DEPRESSIVE DISORDER NOT ELSEWHERE CLASSIFIED 06/23/2011 780.52 insomnia 06/23/2011 V41.0 Vision Problems 06/23/2011 V58.69 LONG-TERM (CURRENT) USE OF OTHER MEDICATIONS 06/23/2011 CAMERON OGLESBY DO K 311 DEPRESSIVE DISORDER NOT ELSEWHERE CLASSIFIED 06/23/2011 CAMERON OGLESBY DO 780.52 insomnia 06/23/2011 ESTHELA OGLESBY DOA Carolee V41.0 Vision Problems 06/23/2011 CAMERON OGLESBY DO V58.69 LONG-TERM (CURRENT) USE OF OTHER MEDICATIONS 06/23/2011 STACEY GAMINO PA-C 311 DEPRESSIVE DISORDER NOT ELSEWHERE CLASSIFIED 06/23/2011 STACEY GAMINO PA-C 780.52 insomnia 06/23/2011 STACEY GAMINO PA-C V41.0 Vision Problems 06/23/2011 STACEY GAMINO PA-C V58.69 LONG-TERM (CURRENT) USE OF OTHER MEDICATIONS 06/23/2011 311 DEPRESSIVE DISORDER NOT ELSEWHERE CLASSIFIED 06/23/2011 780.52 insomnia 06/23/2011 V41.0 Vision Problems 06/23/2011 V58.69 LONG-TERM (CURRENT) USE OF OTHER MEDICATIONS 06/23/2011 311 DEPRESSIVE DISORDER NOT ELSEWHERE CLASSIFIED 06/23/2011 780.52 insomnia 06/23/2011 V41.0 Vision Problems 06/23/2011 V58.69 LONG-TERM (CURRENT) USE OF OTHER MEDICATIONS 06/23/2011 311 DEPRESSIVE DISORDER NOT ELSEWHERE CLASSIFIED 06/23/2011 780.52 insomnia 06/23/2011 V41.0 Vision Problems 06/23/2011 V58.69 LONG-TERM (CURRENT) USE OF OTHER MEDICATIONS 06/23/2011 CAMERON OGLESBY DO 311 DEPRESSIVE DISORDER NOT ELSEWHERE CLASSIFIED 06/23/2011 CAMERON OGLESBY DO 780.52 insomnia 06/23/2011 CAMERON OGLESBY DO V41.0 Vision Problems 06/23/2011 CAMERON OGLESBY DO V58.69 LONG-TERM (CURRENT) USE OF OTHER MEDICATIONS 06/23/2011 CAMERON OGLESBY DO 311 DEPRESSIVE DISORDER NOT ELSEWHERE CLASSIFIED 06/23/2011 CAMERON OGLESBY DO 780.52 insomnia 06/23/2011 ESTHELA OGLESBY DOA K V41.0 Vision Problems 06/23/2011 MENDEL WASSERMAN CAMERON K V58.69 LONG-TERM (CURRENT) USE OF OTHER MEDICATIONS 06/23/2011 STACEY GAMINO PA-C 311 DEPRESSIVE DISORDER NOT ELSEWHERE CLASSIFIED 06/23/2011 STACEY GAMINO PA-C 780.52 insomnia 06/23/2011 STACEY GAMINO PA-C V41.0 Vision Problems 06/23/2011 STACEY GAMINO PA-C V58.69 LONG-TERM (CURRENT) USE OF OTHER MEDICATIONS 06/23/2011 OGLESBY DO, CAMERON K 311 DEPRESSIVE DISORDER NOT ELSEWHERE CLASSIFIED 06/23/2011 OGLESBY DO, CAMERON K 780.52 insomnia 06/23/2011 OGLESBY DO, CAMERON K V41.0 Vision Problems 06/23/2011 OGLESBY DO, CAMERON K V58.69 LONG-TERM (CURRENT) USE OF OTHER MEDICATIONS 06/23/2011 OGLESBY DO, CAMERON K 311 DEPRESSIVE DISORDER NOT ELSEWHERE CLASSIFIED 06/23/2011 OGLESBY DO CAMERON K 780.52 insomnia 06/23/2011 OGLESBY DO, CAMERON K V41.0 Vision Problems 06/23/2011 OGLESBY DO, CAMERON K V58.69 LONG-TERM (CURRENT) USE OF OTHER MEDICATIONS 06/23/2011 OGLESBY DO, CAMERON K 311 DEPRESSIVE DISORDER NOT ELSEWHERE CLASSIFIED 06/23/2011 OGLESBY DO CAMERON K 780.52 insomnia 06/23/2011 OGLESBY DO, CAMERON K V41.0 Vision Problems 06/23/2011 OGLESBY DO, CAMERON K V58.69 LONG-TERM (CURRENT) USE OF OTHER MEDICATIONS 06/23/2011 OGLESBY DO CAMERON K 311 DEPRESSIVE DISORDER NOT ELSEWHERE CLASSIFIED 06/23/2011 OGLESBY DO CAMERON K 780.52 insomnia 06/23/2011 OGLESBY DO, CAMERON K V41.0 Vision Problems 06/23/2011 OGLESBY DO, CAMERON K V58.69 LONG-TERM (CURRENT) USE OF OTHER MEDICATIONS 06/23/2011 OGLESBY DO CAMERON K 311 DEPRESSIVE DISORDER NOT ELSEWHERE CLASSIFIED 06/23/2011 OGLESBY DO CAMERON K 780.52 insomnia 06/23/2011 OGLESBY DO, CAMERON K V41.0 Vision Problems 06/23/2011 OGLESBY DO CAMERON K V58.69 LONG-TERM (CURRENT) USE OF OTHER MEDICATIONS 06/23/2011 OGLESBY DO CMAERON K 311 DEPRESSIVE DISORDER NOT ELSEWHERE CLASSIFIED 06/23/2011 OGLESBY DO CAMERON K 780.52 insomnia 06/23/2011 OGLESBY DO, CAMERON K V41.0 Vision Problems 06/23/2011 OGLESBY DO, CAMERON K V58.69 LONG-TERM (CURRENT) USE OF OTHER MEDICATIONS 06/23/2011 MAKSIM CORLEY APRN R 311 DEPRESSIVE DISORDER NOT ELSEWHERE CLASSIFIED 06/23/2011 MAKSIM CORLEY APRN R 780.52 insomnia 06/23/2011 MAKSIM CORLEY APRN R V41.0 Vision Problems 06/23/2011 LATISHA CORLEY APRNRICIA R V58.69 LONG-TERM (CURRENT) USE OF OTHER MEDICATIONS 06/23/2011 CORLEY ANNUAL CAMPAIGN MANAGERDIONTEIA R 311 DEPRESSIVE DISORDER NOT ELSEWHERE CLASSIFIED 06/23/2011 CORLEY ANNUAL CAMPAIGN MANAGER MAKSIM R 780.52 insomnia 06/23/2011 CORLEY ANNUAL CAMPAIGN MANAGER, MAKSIM R V41.0 Vision Problems 06/23/2011 CORLEY ANNUAL CAMPAIGN MANAGERLATISHAMAKSIM R V58.69 LONG-TERM (CURRENT) USE OF OTHER MEDICATIONS 06/23/2011 OGLESBY DO, CAMERON K 311 DEPRESSIVE DISORDER NOT ELSEWHERE CLASSIFIED 06/23/2011 OGLESBY DO, CAMERON K 780.52 insomnia 06/23/2011 OGLESBY DO, CAMERON K V41.0 Vision Problems 06/23/2011 OGLESBY DO, CAMERON K V58.69 LONG-TERM (CURRENT) USE OF OTHER MEDICATIONS 06/23/2011 OGLESBY DO, CAMERON K 311 DEPRESSIVE DISORDER NOT ELSEWHERE CLASSIFIED 06/23/2011 OGLESBY DO, CAMERON K 780.52 insomnia 06/23/2011 OGLESBY DO, CAMERON K V41.0 Vision Problems 06/23/2011 OGLESBY DO, CAMERON K V58.69 LONG-TERM (CURRENT) USE OF OTHER MEDICATIONS 06/23/2011 OGLESBY DO, CAMERON K 311 DEPRESSIVE DISORDER NOT ELSEWHERE CLASSIFIED 06/23/2011 OGLESBY DO, CAMERON K 780.52 insomnia 06/23/2011 OGLESBY DO, CAMERON K V41.0 Vision Problems 06/23/2011 OGLESBY DO, CAMERON K V58.69 LONG-TERM (CURRENT) USE OF OTHER MEDICATIONS 06/23/2011 OGLESBY DO, CAMERON K 311 DEPRESSIVE DISORDER NOT ELSEWHERE CLASSIFIED 06/23/2011 OGLESBY DO, CAMERON K 780.52 insomnia 06/23/2011 OGLESBY DO, CAMERON K V41.0 Vision Problems 06/23/2011 OGLESBY DO, CAMERON K V58.69 LONG-TERM (CURRENT) USE OF OTHER MEDICATIONS 06/23/2011 OGLESBY DO, CAMERON K 311 DEPRESSIVE DISORDER NOT ELSEWHERE CLASSIFIED 06/23/2011 OGLESBY DO, CAMERON K 780.52 insomnia 06/23/2011 OGLESBY DO, CAMERON K V41.0 Vision Problems 06/23/2011 OGLESBY DO, CAMERON K V58.69 LONG-TERM (CURRENT) USE OF OTHER MEDICATIONS 06/23/2011 KEIRA FORD PSYD 311 DEPRESSIVE DISORDER NOT ELSEWHERE CLASSIFIED 06/23/2011 KEIRA FORD PSYD 780.52 insomnia 06/23/2011 KEIRA FORD PSYD V41.0 Vision Problems 06/23/2011 KEIRA FORD PSYD V58.69 LONG-TERM (CURRENT) USE OF OTHER MEDICATIONS 06/23/2011 CAMERON OGLESBY DO 311 DEPRESSIVE DISORDER NOT ELSEWHERE CLASSIFIED 06/23/2011 CAMERON OGLESBY DO 780.52 insomnia 06/23/2011 CAMERON OGLESBY DO V41.0 Vision Problems 06/23/2011 CAMERON OGLESBY DO V58.69 LONG-TERM (CURRENT) USE OF OTHER MEDICATIONS 06/23/2011 JORDAN MCDONALD APRN 311 DEPRESSIVE DISORDER NOT ELSEWHERE CLASSIFIED 06/23/2011 JORDAN MCDONALD APRN 780.52 insomnia 06/23/2011 JORDAN MCDONALD APRN V41.0 Vision Problems 06/23/2011 JORDAN MCDONALD APRN V58.69 LONG-TERM (CURRENT) USE OF OTHER MEDICATIONS 06/23/2011 STACEY GAMINO PA-C 311 DEPRESSIVE DISORDER NOT ELSEWHERE CLASSIFIED 06/23/2011 STACEY GAMINO PA-C 780.52 insomnia 06/23/2011 STACEY GAMINO PA-C V41.0 Vision Problems 06/23/2011 STACEY GAMINO PA-C V58.69 LONG-TERM (CURRENT) USE OF OTHER MEDICATIONS 06/23/2011 KEIRA FORD PSYD 311 DEPRESSIVE DISORDER NOT ELSEWHERE CLASSIFIED 06/23/2011 KEIRA FORD PSYD 780.52 insomnia 06/23/2011 KEIRA FORD PSYD V41.0 Vision Problems 06/23/2011 KEIRA FORD PSYD V58.69 LONG-TERM (CURRENT) USE OF OTHER MEDICATIONS 07/21/2011 309.24 AD ADJ D/O W ANXIETY 07/21/2011 309.24 AD ADJ D/O W ANXIETY 07/21/2011 CAMERON OGLESBY DO 309.24 AD ADJ D/O W ANXIETY 07/21/2011 CAMERON OGLESBY DO 309.24 AD ADJ D/O W ANXIETY 07/21/2011 309.24 AD ADJ D/O W ANXIETY 07/21/2011 CAMERON OGLESBY DO 309.24 AD ADJ D/O W ANXIETY 07/21/2011 STACEY GAMINO PA-C 309.24 AD ADJ D/O W ANXIETY 07/21/2011 309.24 AD ADJ D/O W ANXIETY 07/21/2011 309.24 AD ADJ D/O W ANXIETY 07/21/2011 309.24 AD ADJ D/O W ANXIETY 07/21/2011 OGLESBY DO, CAMERON K 309.24 AD ADJ D/O W ANXIETY 07/21/2011 OGLESBY DO, CAMERON K 309.24 AD ADJ D/O W ANXIETY 07/21/2011 STACEY GAMINO PA-C 309.24 AD ADJ D/O W ANXIETY 07/21/2011 OGLESBY DO, CAMERON K 309.24 AD ADJ D/O W ANXIETY 07/21/2011 OGLESBY DO, CAMERON K 309.24 AD ADJ D/O W ANXIETY 07/21/2011 OGLESBY DO, CAMERON K 309.24 AD ADJ D/O W ANXIETY 07/21/2011 OGLESBY DO, CAMERON K 309.24 AD ADJ D/O W ANXIETY 07/21/2011 OGLESBY DO, CAMERON K 309.24 AD ADJ D/O W ANXIETY 07/21/2011 OGLESBY DO, CAMERON K 309.24 AD ADJ D/O W ANXIETY 07/21/2011 BARNEY LIND, MAKSIM R 309.24 AD ADJ D/O W ANXIETY 07/21/2011 BARNEY LIND MAKSIM R 309.24 AD ADJ D/O W ANXIETY 07/21/2011 OGLESBY DO, CAMERON K 309.24 AD ADJ D/O W ANXIETY 07/21/2011 OGLESBY DO, CAMERON K 309.24 AD ADJ D/O W ANXIETY 07/21/2011 OGLESBY DO, CAMERON K 309.24 AD ADJ D/O W ANXIETY 07/21/2011 OGLESBY DO, CAMERON K 309.24 AD ADJ D/O W ANXIETY 07/21/2011 OGLESBY DO, CAMERON K 309.24 AD ADJ D/O W ANXIETY 07/21/2011 KEIRA FORD PSYD 309.24 AD ADJ D/O W ANXIETY 07/21/2011 OGLESBY DO CAMERON K 309.24 AD ADJ D/O W ANXIETY 07/21/2011 JORDAN MCDONALD APRN 309.24 AD ADJ D/O W ANXIETY 07/21/2011 STACEY GAMINO PA-C 309.24 AD ADJ D/O W ANXIETY 07/21/2011 KEIRA FORD PSYD EMILY Reyes 309.24 AD ADJ D/O W ANXIETY 10/15/2011 Ot 280.9 IRON DEFIC ANEMIA NOS 10/15/2011 Ot 285.21 ANEMIA IN CHRONIC KIDNEY DISEASE 10/15/2011 Ot 585.3 CHRONIC KIDNEY DISEASE, STAGE III (MODER 10/15/2011 Ot V58.69 OTH MED,LT,CURRENT USE 11/03/2011 300.00 AN ANXIETY UNSPEC 11/03/2011 300.00 AN ANXIETY UNSPEC 11/03/2011 OGLESBY DO, CAMERON K 300.00 AN ANXIETY UNSPEC 11/03/2011 OGLESBY DO, CAMERON K 300.00 AN ANXIETY UNSPEC 11/03/2011 300.00 AN ANXIETY UNSPEC 11/03/2011 OGLESBY DO, CAMERON K 300.00 AN ANXIETY UNSPEC 11/03/2011 STACEY GAMINO PA-C 300.00 AN ANXIETY UNSPEC 11/03/2011 300.00 AN ANXIETY UNSPEC 11/03/2011 300.00 AN ANXIETY UNSPEC 11/03/2011 300.00 AN ANXIETY UNSPEC 11/03/2011 OGLESBY DO, CAMERON K 300.00 AN ANXIETY UNSPEC 11/03/2011 OGLESBY DO, CAMERON K 300.00 AN ANXIETY UNSPEC 11/03/2011 STACEY GAMINO PA-C 300.00 AN ANXIETY UNSPEC 11/03/2011 OGLESBY DO, CAMERON K 300.00 AN ANXIETY UNSPEC 11/03/2011 OGLESBY DO, CAMERON K 300.00 AN ANXIETY UNSPEC 11/03/2011 OGLESBY DO, CAMERON K 300.00 AN ANXIETY UNSPEC 11/03/2011 OGLESBY DO, CAMERON K 300.00 AN ANXIETY UNSPEC 11/03/2011 OGLESBY DO, CAMERON K 300.00 AN ANXIETY UNSPEC 11/03/2011 OGLESBY DO, CAMERON K 300.00 AN ANXIETY UNSPEC 11/03/2011 MAKSIM CORLEY APRN R 300.00 AN ANXIETY UNSPEC 11/03/2011 MAKSIM CORLEY APRN R 300.00 AN ANXIETY UNSPEC 11/03/2011 OGLESBY DO, CAMERON K 300.00 AN ANXIETY UNSPEC 11/03/2011 OGLESBY DO, CAMERON K 300.00 AN ANXIETY UNSPEC 11/03/2011 OGLESBY DO, CAMERON K 300.00 AN ANXIETY UNSPEC 11/03/2011 OGLESBY DO, CAMERON K 300.00 AN ANXIETY UNSPEC 11/03/2011 OGLESBY DO, CAMERON K 300.00 AN ANXIETY UNSPEC 11/03/2011 KEIRA FORD PSYD 300.00 AN ANXIETY UNSPEC 11/03/2011 OGLESBY DO, CAMERON K 300.00 AN ANXIETY UNSPEC 11/03/2011 TAMARA LIND JORDAN D 300.00 AN ANXIETY UNSPEC 11/03/2011 STACEY GAMINO PA-C 300.00 AN ANXIETY UNSPEC 11/03/2011 KEIRA FORD PSYD 300.00 AN ANXIETY UNSPEC 11/07/2011 528.2 ORAL APHTHAE 11/07/2011 528.2 Oral Aphthae 11/07/2011 OGLESBY DO, CAMERON K 528.2 Oral Aphthae 11/07/2011 OGLESBY DO, CAMERON K 528.2 Oral Aphthae 11/07/2011 528.2 Oral Aphthae 11/07/2011 OGLESBY DO, CAMERON K 528.2 Oral Aphthae 11/07/2011 STACEY GAMINO PA-C 528.2 Oral Aphthae 11/07/2011 528.2 Oral Aphthae 11/07/2011 528.2 Oral Aphthae 11/07/2011 528.2 Oral Aphthae 11/07/2011 OGLESBY DO, CAMERON K 528.2 ORAL APHTHAE 11/07/2011 OGLESBY DO, CAMERON K 528.2 Oral Aphthae 11/07/2011 STACEY GAMINO PA-C 528.2 Oral Aphthae 11/07/2011 OGLESBY DO, CAMERON K 528.2 Oral Aphthae 11/07/2011 OGLESBY DO, CAMERON K 528.2 Oral Aphthae 11/07/2011 OGLESBY DO, CAMERON K 528.2 Oral Aphthae 11/07/2011 OGLESBY DO, CAMERON K 528.2 Oral Aphthae 11/07/2011 OGLESBY DO, CAMERON K 528.2 Oral Aphthae 11/07/2011 OGLESBY DO, CAMERON K 528.2 Oral Aphthae 11/07/2011 CORLEY ANNUAL CAMPAIGN MANAGER, MAKSIM R 528.2 Oral Aphthae 11/07/2011 CORLEY ANNUAL CAMPAIGN MANAGER, MAKSIM R 528.2 Oral Aphthae 11/07/2011 OGLESBY DO, CAMERON K 528.2 Oral Aphthae 11/07/2011 OGLESBY DO, CAMERON K 528.2 Oral Aphthae 11/07/2011 OGLESBY DO, CAMERON K 528.2 Oral Aphthae 11/07/2011 OGLESBY DO, CAMERON K 528.2 Oral Aphthae 11/07/2011 OGLESBY DO, CAMERON K 528.2 Oral Aphthae 11/07/2011 KEIRA FORD PSYD 528.2 Oral Aphthae 11/07/2011 OGLESBY DO, CAMERON K 528.2 Oral Aphthae 11/07/2011 JORDAN MCDONALD APRN 528.2 Oral Aphthae 11/07/2011 STACEY GAMINO PA-C 528.2 Oral Aphthae 11/07/2011 KEIRA FORD PSYD 528.2 Oral Aphthae 11/13/2011 719.46 PAIN IN JOINT INVOLVING LOWER LEG 11/13/2011 719.46 Pain In Joint Involving Lower Leg 11/13/2011 OGLESBY DO, CAMERON K 719.46 Pain In Joint Involving Lower Leg 11/13/2011 OGLESBY DO, CAMERON K 719.46 Pain In Joint Involving Lower Leg 11/13/2011 719.46 Pain In Joint Involving Lower Leg 11/13/2011 OGLESBY DO, CAMERON K 719.46 Pain In Joint Involving Lower Leg 11/13/2011 STACEY GAMINO PA-C 719.46 Pain In Joint Involving Lower Leg 11/13/2011 719.46 Pain In Joint Involving Lower Leg 11/13/2011 719.46 Pain In Joint Involving Lower Leg 11/13/2011 719.46 Pain In Joint Involving Lower Leg 11/13/2011 OGLESBY DO, CAMERON K 719.46 PAIN IN JOINT INVOLVING LOWER LEG 11/13/2011 OGLESBY DO, CAMERON K 719.46 Pain In Joint Involving Lower Leg 11/13/2011 STACEY GAMINO PA-C 719.46 Pain In Joint Involving Lower Leg 11/13/2011 OGLESBY DO, CAMERON K 719.46 Pain In Joint Involving Lower Leg 11/13/2011 OGLESBY DO, CAMERON K 719.46 Pain In Joint Involving Lower Leg 11/13/2011 OGLESBY DO, CAMERON K 719.46 Pain In Joint Involving Lower Leg 11/13/2011 OGLESBY DO, CAMERON K 719.46 Pain In Joint Involving Lower Leg 11/13/2011 OGLESBY DO, CAMERON K 719.46 Pain In Joint Involving Lower Leg 11/13/2011 OGLESBY DO, CAMERON K 719.46 Pain In Joint Involving Lower Leg 11/13/2011 BARNEY TAVERASNDIONTEIA R 719.46 Pain In Joint Involving Lower Leg 11/13/2011 BARNEY TAVERASNLATISHAMAKSIM R 719.46 Pain In Joint Involving Lower Leg 11/13/2011 OGLESBY DO, CAMERON K 719.46 Pain In Joint Involving Lower Leg 11/13/2011 OGLESBY DO, CAMERON K 719.46 Pain In Joint Involving Lower Leg 11/13/2011 OGLESBY DO, CAMERON K 719.46 Pain In Joint Involving Lower Leg 11/13/2011 OGLESBY DO, CAMERON K 719.46 Pain In Joint Involving Lower Leg 11/13/2011 OGLESBY DO, CAMERON K 719.46 Pain In Joint Involving Lower Leg 11/13/2011 KEIRA FORD PSYD 719.46 Pain In Joint Involving Lower Leg 11/13/2011 OGLESBY DO, CAMERON K 719.46 Pain In Joint Involving Lower Leg 11/13/2011 JORDAN MCDONALD APRN 719.46 Pain In Joint Involving Lower Leg 11/13/2011 STACEY GAMINO PA-C 719.46 Pain In Joint Involving Lower Leg 11/13/2011 KEIRA FORD PSYD 719.46 Pain In Joint Involving Lower Leg 12/07/2011 717.7 CHONDROMALACIA OF [place]ATELLA 12/07/2011 717.7 CHONDROMALACIA OF [place] 12/07/2011 OGLESBY DOESTHELAA K 717.7 CHONDROMALACIA OF [place] 12/07/2011 OGLESBY DO CAMERON K 717.7 CHONDROMALACIA OF [place] 12/07/2011 717.7 CHONDROMALACIA OF [place] 12/07/2011 OGLESBY DO CAMERON K 717.7 CHONDROMALACIA OF [place] 12/07/2011 STACEY GAMINO PA-C 717.7 CHONDROMALACIA OF [place] 12/07/2011 717.7 CHONDROMALACIA OF [place] 12/07/2011 717.7 CHONDROMALACIA OF [place] 12/07/2011 717.7 CHONDROMALACIA OF [place] 12/07/2011 OGLESBY DO, CAMERON K 717.7 CHONDROMALACIA OF [place] 12/07/2011 OGLESBY DO, CAMERON K 717.7 CHONDROMALACIA OF [place] 12/07/2011 STACEY GAMINO PA-C 717.7 CHONDROMALACIA OF [place] 12/07/2011 OGLESBY DO, CAMERON K 717.7 CHONDROMALACIA OF [place] 12/07/2011 OGLESBY DO, CAMERON K 717.7 CHONDROMALACIA OF [place] 12/07/2011 OGLESBY DO, CAMERON K 717.7 CHONDROMALACIA OF [place] 12/07/2011 OGLESBY DO, CAMERON K 717.7 CHONDROMALACIA OF [place] 12/07/2011 OGLESBY DO, CAMERON K 717.7 CHONDROMALACIA OF [place] 12/07/2011 OGLESBY DO, CAMERON K 717.7 CHONDROMALACIA OF [place] 12/07/2011 MAKSIM CORLEY APRN R 717.7 CHONDROMALACIA OF [place] 12/07/2011 MAKSIM CORLEY APRN R 717.7 CHONDROMALACIA OF [place] 12/07/2011 OGLESBY DO, CAMERON K 717.7 CHONDROMALACIA OF [place] 12/07/2011 OGLESBY DO, CAMERON K 717.7 CHONDROMALACIA OF [place] 12/07/2011 OGLESBY DO, CAMERON K 717.7 CHONDROMALACIA OF [place] 12/07/2011 OGLESBY DO, CAMERON K 717.7 CHONDROMALACIA OF [place] 12/07/2011 OGLESBY DO, CAMERON K 717.7 CHONDROMALACIA OF [place] 12/07/2011 KEIRA FORD PSYD 717.7 CHONDROMALACIA OF [place] 12/07/2011 OGLESBY DO, CAMERON K 717.7 CHONDROMALACIA OF [place] 12/07/2011 JORDAN MCDONALD APRN 717.7 CHONDROMALACIA OF [place] 12/07/2011 STACEY GAMINO PA-C 717.7 CHONDROMALACIA OF [place] 12/07/2011 KEIRA FORD PSYD 717.7 CHONDROMALACIA OF [place] 02/14/2012 V01.9 EXPOSURE TO CONTAGIOUS DISEASE 02/14/2012 V01.9 Exposure To Contagious Disease 02/14/2012 OGLESBY DO, CAMERON K V01.9 Exposure To Contagious Disease 02/14/2012 OGLESBY DO, CAMERON K V01.9 Exposure To Contagious Disease 02/14/2012 V01.9 Exposure To Contagious Disease 02/14/2012 OGLESBY DO, CAMERON K V01.9 Exposure To Contagious Disease 02/14/2012 STACEY GAMINO PA-C V01.9 Exposure To Contagious Disease 02/14/2012 V01.9 Exposure To Contagious Disease 02/14/2012 V01.9 Exposure To Contagious Disease 02/14/2012 V01.9 Exposure To Contagious Disease 02/14/2012 OGLESBY DO, CAMERON K V01.9 EXPOSURE TO CONTAGIOUS DISEASE 02/14/2012 OGLESBY DO, CAMERON K V01.9 Exposure To Contagious Disease 02/14/2012 STACEY GAMINO PA-C V01.9 Exposure To Contagious Disease 02/14/2012 OGLESBY DO, CAMERON K V01.9 Exposure To Contagious Disease 02/14/2012 OGLESBY DO, CAMERON K V01.9 Exposure To Contagious Disease 02/14/2012 OGLESBY DO, CAMERON K V01.9 Exposure To Contagious Disease 02/14/2012 OGLESBY DO, CAMERON K V01.9 Exposure To Contagious Disease 02/14/2012 OGLESBY DO, CAMERON K V01.9 Exposure To Contagious Disease 02/14/2012 OGLESBY DO, CAMERON K V01.9 Exposure To Contagious Disease 02/14/2012 BARNEY ANNUAL CAMPAIGN MANAGER, MAKSIM R V01.9 Exposure To Contagious Disease 02/14/2012 BARNEY TAVERASN, MAKSIM R V01.9 Exposure To Contagious Disease 02/14/2012 OGLESBY DO, CAMERON K V01.9 Exposure To Contagious Disease 02/14/2012 OGLESBY DO, CAMERON K V01.9 Exposure To Contagious Disease 02/14/2012 OGLESBY DO, CAMERON K V01.9 Exposure To Contagious Disease 02/14/2012 OGLSEBY DO, CAMERON K V01.9 Exposure To Contagious Disease 02/14/2012 OGLESBY DO, CAMERON K V01.9 Exposure To Contagious Disease 02/14/2012 KEIRA FORD PSYD V01.9 Exposure To Contagious Disease 02/14/2012 OGLESBY DO, CAMERON K V01.9 Exposure To Contagious Disease 02/14/2012 JORDAN MCDONALD APRN V01.9 Exposure To Contagious Disease 02/14/2012 STACEY GAMINO PA-C V01.9 Exposure To Contagious Disease 02/14/2012 KEIRA FORD PSYD V01.9 Exposure To Contagious Disease 02/23/2012 466.0 BRONCHITIS, ACUTE 02/23/2012 466.0 Bronchitis, Acute 02/23/2012 OGLESBY DO, CAMERON K 466.0 Bronchitis, Acute 02/23/2012 OGLESBY DO, CAMERON K 466.0 Bronchitis, Acute 02/23/2012 466.0 Bronchitis, Acute 02/23/2012 OGLESBY DO, CAMERON K 466.0 Bronchitis, Acute 02/23/2012 STACEY GAMINO PA-C 466.0 Bronchitis, Acute 02/23/2012 466.0 Bronchitis, Acute 02/23/2012 466.0 Bronchitis, Acute 02/23/2012 466.0 Bronchitis, Acute 02/23/2012 OGLESBY DO, CAMERON K 466.0 BRONCHITIS, ACUTE 02/23/2012 OGLESBY DO, CAMERON K 466.0 Bronchitis, Acute 02/23/2012 STACEY GAMINO PA-C 466.0 Bronchitis, Acute 02/23/2012 OGLESBY DO, CAMERON K 466.0 Bronchitis, Acute 02/23/2012 OGLESBY DO, CAMERON K 466.0 Bronchitis, Acute 02/23/2012 OGLESBY DO, CAMERON K 466.0 Bronchitis, Acute 02/23/2012 OGLESBY DO, CAMERON K 466.0 Bronchitis, Acute 02/23/2012 OGLESBY DO, CAMERON K 466.0 Bronchitis, Acute 02/23/2012 OGLESBY DO, CAMERON K 466.0 Bronchitis, Acute 02/23/2012 CORLEY ANNUAL CAMPAIGN MANAGER, MAKSIM R 466.0 Bronchitis, Acute 02/23/2012 CORLEY DIOGO, MAKSIM R 466.0 Bronchitis, Acute 02/23/2012 OGLESBY DO, CAMERON K 466.0 Bronchitis, Acute 02/23/2012 OGLESBY DO, CAMERON K 466.0 Bronchitis, Acute 02/23/2012 OGLESBY DO, CAMERON K 466.0 Bronchitis, Acute 02/23/2012 OGLESBY DO, CAMERON K 466.0 Bronchitis, Acute 02/23/2012 OGLESBY DO, CAMERON K 466.0 Bronchitis, Acute 02/23/2012 KEIRA FORD PSYD 466.0 Bronchitis, Acute 02/23/2012 CAMERON OGLESBY DO 466.0 Bronchitis, Acute 02/23/2012 JORDAN MCDONALD APRN 466.0 Bronchitis, Acute 02/23/2012 STACEY GAMINO PA-C 466.0 Bronchitis, Acute 02/23/2012 KEIRA FORD PSYD L 466.0 Bronchitis, Acute 04/02/2012 ESTHELA OGLESBY DOA K 372.14 OTHER CHRONIC ALLERGIC CONJUNCTIVITIS 04/02/2012 CAMERON OGLESBY DO 780.79 OTHER MALAISE AND FATIGUE 04/02/2012 CAMERON OGLESBY DO K 783.1 ABNORMAL WEIGHT GAIN 04/02/2012 372.14 OTHER CHRONIC ALLERGIC CONJUNCTIVITIS 04/02/2012 780.79 OTHER MALAISE AND FATIGUE 04/02/2012 783.1 ABNORMAL WEIGHT GAIN 04/02/2012 ESTHELA OGLESBY DOA K 372.14 OTHER CHRONIC ALLERGIC CONJUNCTIVITIS 04/02/2012 CAMERON OGLESBY DO 780.79 OTHER MALAISE AND FATIGUE 04/02/2012 CAMERON OGLESBY DO 783.1 ABNORMAL WEIGHT GAIN 04/02/2012 STACEY GAMINO PA-C 372.14 OTHER CHRONIC ALLERGIC CONJUNCTIVITIS 04/02/2012 STACEY GAMINO PA-C 780.79 OTHER MALAISE AND FATIGUE 04/02/2012 STACEY GAMINO PA-C 783.1 ABNORMAL WEIGHT GAIN 04/02/2012 372.14 OTHER CHRONIC ALLERGIC CONJUNCTIVITIS 04/02/2012 780.79 OTHER MALAISE AND FATIGUE 04/02/2012 783.1 ABNORMAL WEIGHT GAIN 04/02/2012 372.14 OTHER CHRONIC ALLERGIC CONJUNCTIVITIS 04/02/2012 780.79 OTHER MALAISE AND FATIGUE 04/02/2012 783.1 ABNORMAL WEIGHT GAIN 04/02/2012 372.14 OTHER CHRONIC ALLERGIC CONJUNCTIVITIS 04/02/2012 780.79 OTHER MALAISE AND FATIGUE 04/02/2012 783.1 ABNORMAL WEIGHT GAIN 04/02/2012 CAMERON OGLESBY DO 372.14 OTHER CHRONIC ALLERGIC CONJUNCTIVITIS 04/02/2012 CAMERON OGLESBY DO 780.79 OTHER MALAISE AND FATIGUE 04/02/2012 CAMERON OGLESBY DO 783.1 ABNORMAL WEIGHT GAIN 04/02/2012 STACEY GAMINO PA-C 372.14 OTHER CHRONIC ALLERGIC CONJUNCTIVITIS 04/02/2012 STACEY GAMINO PA-C 780.79 OTHER MALAISE AND FATIGUE 04/02/2012 STACEY GAMINO PA-C 783.1 ABNORMAL WEIGHT GAIN 04/02/2012 OGLESBY DO, CAMERON K 372.14 OTHER CHRONIC ALLERGIC CONJUNCTIVITIS 04/02/2012 OGLESBY DO, CAMERON K 780.79 OTHER MALAISE AND FATIGUE 04/02/2012 OGLESBY DO, CAMERON K 783.1 ABNORMAL WEIGHT GAIN 04/02/2012 OGLESBY DO, CAMERON K 372.14 OTHER CHRONIC ALLERGIC CONJUNCTIVITIS 04/02/2012 OGLESBY DO, CAMERON K 780.79 OTHER MALAISE AND FATIGUE 04/02/2012 OGLESBY DO, CAMERON K 783.1 ABNORMAL WEIGHT GAIN 04/02/2012 OGLESBY DO, CAMERON K 372.14 OTHER CHRONIC ALLERGIC CONJUNCTIVITIS 04/02/2012 OGLESBY DO, CAMERON K 780.79 OTHER MALAISE AND FATIGUE 04/02/2012 OGLESBY DO, CAMERON K 783.1 ABNORMAL WEIGHT GAIN 04/02/2012 OGLESBY DO, CAMERON K 372.14 OTHER CHRONIC ALLERGIC CONJUNCTIVITIS 04/02/2012 OGLESBY DO, CAMERON K 780.79 OTHER MALAISE AND FATIGUE 04/02/2012 OGLESBY DO, CAMERON K 783.1 ABNORMAL WEIGHT GAIN 04/02/2012 OGLESBY DO, CAMERON K 372.14 OTHER CHRONIC ALLERGIC CONJUNCTIVITIS 04/02/2012 OGLESBY DO, CAMERON K 780.79 OTHER MALAISE AND FATIGUE 04/02/2012 OGLESBY DO, CAMERON K 783.1 ABNORMAL WEIGHT GAIN 04/02/2012 OGLESBY DO, CAMERON K 372.14 OTHER CHRONIC ALLERGIC CONJUNCTIVITIS 04/02/2012 OGLESBY DO, CAMERON K 780.79 OTHER MALAISE AND FATIGUE 04/02/2012 OGLESBY DO, CAMERON K 783.1 ABNORMAL WEIGHT GAIN 04/02/2012 BARNEY ANNUAL CAMPAIGN MANAGER, MAKSIM R 372.14 OTHER CHRONIC ALLERGIC CONJUNCTIVITIS 04/02/2012 BARNEY ANNUAL CAMPAIGN MANAGER, MAKSIM R 780.79 OTHER MALAISE AND FATIGUE 04/02/2012 BARNEY ANNUAL CAMPAIGN MANAGER, MAKSIM R 783.1 ABNORMAL WEIGHT GAIN 04/02/2012 BARNEY LIND MAKSIM R 372.14 OTHER CHRONIC ALLERGIC CONJUNCTIVITIS 04/02/2012 BARNEY LIND MAKSIM R 780.79 OTHER MALAISE AND FATIGUE 04/02/2012 MAKSIM CORLEY APRN 783.1 ABNORMAL WEIGHT GAIN 04/02/2012 OGLESBY DO, CAMERON K 372.14 OTHER CHRONIC ALLERGIC CONJUNCTIVITIS 04/02/2012 OGLESBY DO, CAMERON K 780.79 OTHER MALAISE AND FATIGUE 04/02/2012 OGLESBY DO, CAMERON K 783.1 ABNORMAL WEIGHT GAIN 04/02/2012 OGLESBY DO, CAMERON K 372.14 OTHER CHRONIC ALLERGIC CONJUNCTIVITIS 04/02/2012 OGLESBY DO, CAMERON K 780.79 OTHER MALAISE AND FATIGUE 04/02/2012 OGLESBY DO, CAMERON K 783.1 ABNORMAL WEIGHT GAIN 04/02/2012 OGLESBY DO, CAMERON K 372.14 OTHER CHRONIC ALLERGIC CONJUNCTIVITIS 04/02/2012 OGLESBY DO, CAMERON K 780.79 OTHER MALAISE AND FATIGUE 04/02/2012 OGLESBY DO, CAMERON K 783.1 ABNORMAL WEIGHT GAIN 04/02/2012 OGLESBY DO, CAMERON K 372.14 OTHER CHRONIC ALLERGIC CONJUNCTIVITIS 04/02/2012 OGLESBY DO, CAMERON K 780.79 OTHER MALAISE AND FATIGUE 04/02/2012 OGLESBY DO, CAMERON K 783.1 ABNORMAL WEIGHT GAIN 04/02/2012 OGLESBY DO, CAMERON K 372.14 OTHER CHRONIC ALLERGIC CONJUNCTIVITIS 04/02/2012 OGLESBY DO, CAMERON K 780.79 OTHER MALAISE AND FATIGUE 04/02/2012 OGLESBY DO, CAMERON K 783.1 ABNORMAL WEIGHT GAIN 04/02/2012 KEIRA FORD PSYD L 372.14 OTHER CHRONIC ALLERGIC CONJUNCTIVITIS 04/02/2012 KEIRA FORD PSYD L 780.79 OTHER MALAISE AND FATIGUE 04/02/2012 KEIRA FORD PSYD 783.1 ABNORMAL WEIGHT GAIN 04/02/2012 OGLESBY DO, CAMERON K 372.14 OTHER CHRONIC ALLERGIC CONJUNCTIVITIS 04/02/2012 OGLESBY DO, CAMERON K 780.79 OTHER MALAISE AND FATIGUE 04/02/2012 OGLESBY DO, CAMERON K 783.1 ABNORMAL WEIGHT GAIN 04/02/2012 JORDAN MCDONALD APRN 372.14 OTHER CHRONIC ALLERGIC CONJUNCTIVITIS 04/02/2012 JORDAN MCDONALD APRN 780.79 OTHER MALAISE AND FATIGUE 04/02/2012 JORDAN MCDONALD APRN 783.1 ABNORMAL WEIGHT GAIN 04/02/2012 STACEY GAMINO PA-C 372.14 OTHER CHRONIC ALLERGIC CONJUNCTIVITIS 04/02/2012 STACEY GAMINO PA-C 780.79 OTHER MALAISE AND FATIGUE 04/02/2012 STACEY GAMINO PA-C 783.1 ABNORMAL WEIGHT GAIN 04/02/2012 KEIRA FORD PSYD L 372.14 OTHER CHRONIC ALLERGIC CONJUNCTIVITIS 04/02/2012 KEIRA FORD PSYD L 780.79 OTHER MALAISE AND FATIGUE 04/02/2012 KEIRA FORD PSYD L 783.1 ABNORMAL WEIGHT GAIN 05/03/2012 OGLESBY DO, CAMERON K 268.9 UNSPECIFIED VITAMIN D DEFICIENCY 05/03/2012 268.9 UNSPECIFIED VITAMIN D DEFICIENCY 05/03/2012 OGLESBY DO, CAMERON K 268.9 UNSPECIFIED VITAMIN D DEFICIENCY 05/03/2012 STACEY GAMINO PA-C 268.9 UNSPECIFIED VITAMIN D DEFICIENCY 05/03/2012 268.9 UNSPECIFIED VITAMIN D DEFICIENCY 05/03/2012 268.9 UNSPECIFIED VITAMIN D DEFICIENCY 05/03/2012 268.9 UNSPECIFIED VITAMIN D DEFICIENCY 05/03/2012 OGLESBY DO, CAMERON K 268.9 UNSPECIFIED VITAMIN D DEFICIENCY 05/03/2012 STACEY GAMINO PA-C 268.9 UNSPECIFIED VITAMIN D DEFICIENCY 05/03/2012 OGLESBY DO, CAMERON K 268.9 UNSPECIFIED VITAMIN D DEFICIENCY 05/03/2012 OGLESBY DO, CAMERON K 268.9 UNSPECIFIED VITAMIN D DEFICIENCY 05/03/2012 OGLESBY DO, CAMERON K 268.9 UNSPECIFIED VITAMIN D DEFICIENCY 05/03/2012 OGLESBY DO, CAMERON K 268.9 UNSPECIFIED VITAMIN D DEFICIENCY 05/03/2012 OGLESBY DO, CAMERON K 268.9 UNSPECIFIED VITAMIN D DEFICIENCY 05/03/2012 OGLESBY DO, CAMERON K 268.9 UNSPECIFIED VITAMIN D DEFICIENCY 05/03/2012 MAKSIM CORLEY APRN R 268.9 UNSPECIFIED VITAMIN D DEFICIENCY 05/03/2012 DIONTE CORLEY APRNIA R 268.9 UNSPECIFIED VITAMIN D DEFICIENCY 05/03/2012 OGLESBY DO, CAMERON K 268.9 UNSPECIFIED VITAMIN D DEFICIENCY 05/03/2012 OGLESBY DO, CAMERON K 268.9 UNSPECIFIED VITAMIN D DEFICIENCY 05/03/2012 OGLESBY DO, CAMERON K 268.9 UNSPECIFIED VITAMIN D DEFICIENCY 05/03/2012 OGLESBY DO, CAMERON K 268.9 UNSPECIFIED VITAMIN D DEFICIENCY 05/03/2012 OGLESBY DO, CAMERON K 268.9 UNSPECIFIED VITAMIN D DEFICIENCY 05/03/2012 KEIRA FORD PSYD 268.9 UNSPECIFIED VITAMIN D DEFICIENCY 05/03/2012 OGLESBY DO, CAMERON K 268.9 UNSPECIFIED VITAMIN D DEFICIENCY 05/03/2012 JORDAN MCDONALD APRN 268.9 UNSPECIFIED VITAMIN D DEFICIENCY 05/03/2012 STACEY GAMINO PA-C 268.9 UNSPECIFIED VITAMIN D DEFICIENCY 05/03/2012 KEIRA FORD PSYD 268.9 UNSPECIFIED VITAMIN D DEFICIENCY 06/03/2012 461.9 SINUSITIS ACUTE 06/03/2012 OGLESBY DO, CAMERON K 461.9 Sinusitis Acute 06/03/2012 STACEY GAMINO PA-C 461.9 Sinusitis Acute 06/03/2012 461.9 Sinusitis Acute 06/03/2012 461.9 Sinusitis Acute 06/03/2012 461.9 Sinusitis Acute 06/03/2012 OGLESBY DO, CAMERON K 461.9 Sinusitis Acute 06/03/2012 STACEY GAMINO PA-C 461.9 Sinusitis Acute 06/03/2012 OGLESBY DO, CAMERON K 461.9 Sinusitis Acute 06/03/2012 OGLESBY DO, CAMERON K 461.9 Sinusitis Acute 06/03/2012 OGLESBY DO, CAMERON K 461.9 Sinusitis Acute 06/03/2012 OGLESBY DO, CAMERON K 461.9 Sinusitis Acute 06/03/2012 OGLESBY DO, CAMERON K 461.9 Sinusitis Acute 06/03/2012 OGLESBY DO, CAMERON K 461.9 Sinusitis Acute 06/03/2012 BARNEY ANNUAL CAMPAIGN MANAGER, MAKSIM R 461.9 Sinusitis Acute 06/03/2012 CORLEY ANNUAL CAMPAIGN MANAGER, MAKSIM R 461.9 Sinusitis Acute 06/03/2012 OGLESBY DO, CAMERON K 461.9 Sinusitis Acute 06/03/2012 OGLESBY DO, CAMERON K 461.9 Sinusitis Acute 06/03/2012 OGLESBY DO, CAMERON K 461.9 Sinusitis Acute 06/03/2012 OGLESBY DO, CAMERON K 461.9 Sinusitis Acute 06/03/2012 OGLESBY DO, CAMERON K 461.9 Sinusitis Acute 06/03/2012 KEIRA FORD PSYD 461.9 Sinusitis Acute 06/03/2012 OGLESBY DO CAMERON K 461.9 Sinusitis Acute 06/03/2012 JORDAN MCDONALD APRN 461.9 Sinusitis Acute 06/03/2012 STACEY GAMINO PA-C 461.9 Sinusitis Acute 06/03/2012 KEIRA FORD PSYD L 461.9 Sinusitis Acute 06/13/2012 MENDEL WASSERMAN CAMERON K 414.00 CORONARY ATHEROSCLEROSIS OF UNSPECIFIED TYPE OF VESSEL [place] OR GRAFT 06/13/2012 MENDEL WASSERMAN CAMERON K 785.1 PALPITATIONS 06/13/2012 STACEY GAMINO PA-C 414.00 CORONARY ATHEROSCLEROSIS OF UNSPECIFIED TYPE OF VESSEL [place] OR GRAFT 06/13/2012 STACEY GAMINO PA-C 785.1 PALPITATIONS 06/13/2012 414.00 CORONARY ATHEROSCLEROSIS OF UNSPECIFIED TYPE OF VESSEL [place] OR GRAFT 06/13/2012 785.1 PALPITATIONS 06/13/2012 414.00 CORONARY ATHEROSCLEROSIS OF UNSPECIFIED TYPE OF VESSEL [place] OR GRAFT 06/13/2012 785.1 PALPITATIONS 06/13/2012 414.00 CORONARY ATHEROSCLEROSIS OF UNSPECIFIED TYPE OF VESSEL [place] OR GRAFT 06/13/2012 785.1 PALPITATIONS 06/13/2012 ESTHELA OGLESBY DOA K 414.00 CORONARY ATHEROSCLEROSIS OF UNSPECIFIED TYPE OF VESSEL [place] OR GRAFT 06/13/2012 OGLESBY DO CAMERON K 785.1 PALPITATIONS 06/13/2012 STACEY GAMINO PA-C 414.00 CORONARY ATHEROSCLEROSIS OF UNSPECIFIED TYPE OF VESSEL [place] OR GRAFT 06/13/2012 STACEY GAMINO PA-C 785.1 PALPITATIONS 06/13/2012 OGLESBY DO CAMERON K 414.00 CORONARY ATHEROSCLEROSIS OF UNSPECIFIED TYPE OF VESSEL [place] OR GRAFT 06/13/2012 OGLESBY DO, CAMERON K 785.1 PALPITATIONS 06/13/2012 OGLESBY DO, CAMERON K 414.00 CORONARY ATHEROSCLEROSIS OF UNSPECIFIED TYPE OF VESSEL [place] OR GRAFT 06/13/2012 OGLESBY DO, CAMERON K 785.1 PALPITATIONS 06/13/2012 OGLESBY DO, CAMERON K 414.00 CORONARY ATHEROSCLEROSIS OF UNSPECIFIED TYPE OF VESSEL [place] OR GRAFT 06/13/2012 OGLESBY DO CAMERON K 785.1 PALPITATIONS 06/13/2012 OGLESBY DO, CAMERON K 414.00 CORONARY ATHEROSCLEROSIS OF UNSPECIFIED TYPE OF VESSEL [place] OR GRAFT 06/13/2012 OGLESBY DO, CAMERON K 785.1 PALPITATIONS 06/13/2012 OGLESBY DO, CAMERON K 414.00 CORONARY ATHEROSCLEROSIS OF UNSPECIFIED TYPE OF VESSEL [place] OR GRAFT 06/13/2012 OGLESBY DO, CAMERON K 785.1 PALPITATIONS 06/13/2012 OGLESBY DO, CAMERON K 414.00 CORONARY ATHEROSCLEROSIS OF UNSPECIFIED TYPE OF VESSEL [place] OR GRAFT 06/13/2012 OGLESBY DO, CAMERON K 785.1 PALPITATIONS 06/13/2012 CORLEY ANNUAL CAMPAIGN MANAGER, MAKSIM R 414.00 CORONARY ATHEROSCLEROSIS OF UNSPECIFIED TYPE OF VESSEL [place] OR GRAFT 06/13/2012 CORLEY ANNUAL CAMPAIGN MANAGER, MAKSIM R 785.1 PALPITATIONS 06/13/2012 CORLEY ANNUAL CAMPAIGN MANAGER MAKSIM R 414.00 CORONARY ATHEROSCLEROSIS OF UNSPECIFIED TYPE OF VESSEL [place] OR GRAFT 06/13/2012 BARNEY ANNUAL CAMPAIGN MANAGER, MAKSIM R 785.1 PALPITATIONS 06/13/2012 OGLESBY DO, CAMERON K 414.00 CORONARY ATHEROSCLEROSIS OF UNSPECIFIED TYPE OF VESSEL [place] OR GRAFT 06/13/2012 OGLESBY DO, CAMERON K 785.1 PALPITATIONS 06/13/2012 OGLESBY DO, CAMERON K 414.00 CORONARY ATHEROSCLEROSIS OF UNSPECIFIED TYPE OF VESSEL [place] OR GRAFT 06/13/2012 OGLESBY DO, CAMERON K 785.1 PALPITATIONS 06/13/2012 OGLESBY DO, CAMERON K 414.00 CORONARY ATHEROSCLEROSIS OF UNSPECIFIED TYPE OF VESSEL [place] OR GRAFT 06/13/2012 OGLESBY DO, CAMERON K 785.1 PALPITATIONS 06/13/2012 OGLESBY DO, CAMERON K 414.00 CORONARY ATHEROSCLEROSIS OF UNSPECIFIED TYPE OF VESSEL [place] OR GRAFT 06/13/2012 OGLESBY DO, CAMERON K 785.1 PALPITATIONS 06/13/2012 OGLESBY DO, CAMERON K 414.00 CORONARY ATHEROSCLEROSIS OF UNSPECIFIED TYPE OF VESSEL [place] OR GRAFT 06/13/2012 OGLESBY DO, CAMERON K 785.1 PALPITATIONS 06/13/2012 KEIRA FORD PSYD L 414.00 CORONARY ATHEROSCLEROSIS OF UNSPECIFIED TYPE OF VESSEL [place] OR GRAFT 06/13/2012 KEIRA FORD PSYD ANN L 785.1 PALPITATIONS 06/13/2012 OGLESBY DO, CAMERON K 414.00 CORONARY ATHEROSCLEROSIS OF UNSPECIFIED TYPE OF VESSEL [place] OR GRAFT 06/13/2012 OGLESBY DO, CAMERON K 785.1 PALPITATIONS 06/13/2012 JORDAN MCDONALD APRN 414.00 CORONARY ATHEROSCLEROSIS OF UNSPECIFIED TYPE OF VESSEL [place] OR GRAFT 06/13/2012 JORDAN MCDONALD APRN 785.1 PALPITATIONS 06/13/2012 STACEY GAMINO PA-C 414.00 CORONARY ATHEROSCLEROSIS OF UNSPECIFIED TYPE OF VESSEL [place] OR GRAFT 06/13/2012 STACEY GAMINO PA-C 785.1 PALPITATIONS 06/13/2012 KEIRA FORD PSYD ANN L 414.00 CORONARY ATHEROSCLEROSIS OF UNSPECIFIED TYPE OF VESSEL [place] OR GRAFT 06/13/2012 KEIRA FORD PSYD ANN L 785.1 PALPITATIONS 07/17/2012 STACEY GAMINO PA-C 427.9 ARRHYTHMIA, CARDIAC (SINUS) 07/17/2012 427.9 ARRHYTHMIA, CARDIAC (SINUS) 07/17/2012 427.9 ARRHYTHMIA, CARDIAC (SINUS) 07/17/2012 427.9 ARRHYTHMIA, CARDIAC (SINUS) 07/17/2012 OGLESBY DO, CAMERON K 427.9 ARRHYTHMIA, CARDIAC (SINUS) 07/17/2012 SATCEY GAMINO PA-C M 427.9 ARRHYTHMIA, CARDIAC (SINUS) 07/17/2012 OGLESBY DO, CAMERON K 427.9 ARRHYTHMIA, CARDIAC (SINUS) 07/17/2012 OGLESBY DO, CAMERON K 427.9 ARRHYTHMIA, CARDIAC (SINUS) 07/17/2012 OGLESBY DO, CAMERON K 427.9 ARRHYTHMIA, CARDIAC (SINUS) 07/17/2012 OGLESBY DO, CAMERON K 427.9 ARRHYTHMIA, CARDIAC (SINUS) 07/17/2012 OGLESBY DO, CAMERON K 427.9 ARRHYTHMIA, CARDIAC (SINUS) 07/17/2012 OGLESBY DO, CAMERON K 427.9 ARRHYTHMIA, CARDIAC (SINUS) 07/17/2012 BARNEY ANNUAL CAMPAIGN MANAGER, MAKSIM R 427.9 ARRHYTHMIA, CARDIAC (SINUS) 07/17/2012 BARNEY ANNUAL CAMPAIGN MANAGER, MAKSIM R 427.9 ARRHYTHMIA, CARDIAC (SINUS) 07/17/2012 OGLESBY DO, CAMERON K 427.9 ARRHYTHMIA, CARDIAC (SINUS) 07/17/2012 OGLESBY DO, CAMERON K 427.9 ARRHYTHMIA, CARDIAC (SINUS) 07/17/2012 OGLESBY DO, CAMERON K 427.9 ARRHYTHMIA, CARDIAC (SINUS) 07/17/2012 OGLESBY DO, CAMERON K 427.9 ARRHYTHMIA, CARDIAC (SINUS) 07/17/2012 OGLESBY DO, CAMERON K 427.9 ARRHYTHMIA, CARDIAC (SINUS) 07/17/2012 KEIRA FORD PSYD 427.9 ARRHYTHMIA, CARDIAC (SINUS) 07/17/2012 OGLESBY DO, CAMERON K 427.9 ARRHYTHMIA, CARDIAC (SINUS) 07/17/2012 JORDAN MCDONALD APRN 427.9 ARRHYTHMIA, CARDIAC (SINUS) 07/17/2012 STACEY GAMINO PA-C 427.9 ARRHYTHMIA, CARDIAC (SINUS) 07/17/2012 KEIRA FORD PSYD 427.9 ARRHYTHMIA, CARDIAC (SINUS) 08/09/2012 493.90 ASTHMA UNSPECIFIED 08/09/2012 493.90 ASTHMA UNSPECIFIED 08/09/2012 493.90 ASTHMA UNSPECIFIED 08/09/2012 OGLESBY DO, CAMERON K 493.90 ASTHMA UNSPECIFIED 08/09/2012 STACEY GAMINO PA-C 493.90 ASTHMA UNSPECIFIED 08/09/2012 OGLESBY DO, CAMERON K 493.90 ASTHMA UNSPECIFIED 08/09/2012 OGLESBY DO, CAMERON K 493.90 ASTHMA UNSPECIFIED 08/09/2012 OGLESBY DO, CAMERON K 493.90 ASTHMA UNSPECIFIED 08/09/2012 OGLESBY DO, CAMERON K 493.90 ASTHMA UNSPECIFIED 08/09/2012 OGLESBY DO, CAMERON K 493.90 ASTHMA UNSPECIFIED 08/09/2012 OGLESBY DO, CAMERON K 493.90 ASTHMA UNSPECIFIED 08/09/2012 MAKSIM CORLEY APRN 493.90 ASTHMA UNSPECIFIED 08/09/2012 MAKSIM CORLEY APRN R 493.90 ASTHMA UNSPECIFIED 08/09/2012 OGLESBY DO, CAMERON K 493.90 ASTHMA UNSPECIFIED 08/09/2012 OGLESBY DO, CAMERON K 493.90 ASTHMA UNSPECIFIED 08/09/2012 OGLESBY DO, CAMERON K 493.90 ASTHMA UNSPECIFIED 08/09/2012 OGLESBY DO, CAMERON K 493.90 ASTHMA UNSPECIFIED 08/09/2012 OGLESBY DO, CAMERON K 493.90 ASTHMA UNSPECIFIED 08/09/2012 KEIRA FORD PSYD 493.90 ASTHMA UNSPECIFIED 08/09/2012 OGLESBY DO, CAMERON K 493.90 ASTHMA UNSPECIFIED 08/09/2012 JORDAN MCDONALD APRN 493.90 ASTHMA UNSPECIFIED 08/09/2012 STACEY GAMINO PA-C 493.90 ASTHMA UNSPECIFIED 08/09/2012 KEIRA FORD PSYD 493.90 ASTHMA UNSPECIFIED 09/04/2012 588.81 SECONDARY HYPERPARATHYROIDISM (OF RENAL ORIGIN) 09/04/2012 791.0 PROTEINURIA 09/04/2012 588.81 SECONDARY HYPERPARATHYROIDISM (OF RENAL ORIGIN) 09/04/2012 791.0 PROTEINURIA 09/04/2012 OGLESBY DO, CAMERON K 588.81 SECONDARY HYPERPARATHYROIDISM (OF RENAL ORIGIN) 09/04/2012 OGLESBY DO, CAMERON K 791.0 PROTEINURIA 09/04/2012 STACEY GAMINO PA-C 588.81 SECONDARY HYPERPARATHYROIDISM (OF RENAL ORIGIN) 09/04/2012 STACEY GAMINO PA-C 791.0 PROTEINURIA 09/04/2012 OGLESBY DO, CAMERON K 588.81 SECONDARY HYPERPARATHYROIDISM (OF RENAL ORIGIN) 09/04/2012 OGLESBY DO, CAMERON K 791.0 PROTEINURIA 09/04/2012 OGLESBY DO, CAMERON K 588.81 SECONDARY HYPERPARATHYROIDISM (OF RENAL ORIGIN) 09/04/2012 OGLESBY DO, CAMERON K 791.0 PROTEINURIA 09/04/2012 OGLESBY DO, CAMERON K 588.81 SECONDARY HYPERPARATHYROIDISM (OF RENAL ORIGIN) 09/04/2012 OGLESBY DO, CAMERON K 791.0 PROTEINURIA 09/04/2012 OGLESBY DO, CAMERON K 588.81 SECONDARY HYPERPARATHYROIDISM (OF RENAL ORIGIN) 09/04/2012 OGLESBY DO, CAMERON K 791.0 PROTEINURIA 09/04/2012 OGLESBY DO, CAMERON K 588.81 SECONDARY HYPERPARATHYROIDISM (OF RENAL ORIGIN) 09/04/2012 OGLESBY DO, CAMERON K 791.0 PROTEINURIA 09/04/2012 OGLESBY DO, CAMERON K 588.81 SECONDARY HYPERPARATHYROIDISM (OF RENAL ORIGIN) 09/04/2012 OGLESBY DO, CAMERON K 791.0 PROTEINURIA 09/04/2012 BARNEY TAVERASNLATISHAMAKSIM R 588.81 SECONDARY HYPERPARATHYROIDISM (OF RENAL ORIGIN) 09/04/2012 BARNEY ANNUAL CAMPAIGN MANAGER MAKSIM R 791.0 PROTEINURIA 09/04/2012 BARNEY ANNUAL CAMPAIGN MANAGER MAKSIM R 588.81 SECONDARY HYPERPARATHYROIDISM (OF RENAL ORIGIN) 09/04/2012 BARNEY TAVERASNLATISHAMAKSIM R 791.0 PROTEINURIA 09/04/2012 OGLESBY DO, CAMERON K 588.81 SECONDARY HYPERPARATHYROIDISM (OF RENAL ORIGIN) 09/04/2012 OGLESBY DO, CAMERON K 791.0 PROTEINURIA 09/04/2012 OGLESBY DO, CAMERON K 588.81 SECONDARY HYPERPARATHYROIDISM (OF RENAL ORIGIN) 09/04/2012 OGLESBY DO, CAMERON K 791.0 PROTEINURIA 09/04/2012 OGLESBY DO, CAMERON K 588.81 SECONDARY HYPERPARATHYROIDISM (OF RENAL ORIGIN) 09/04/2012 OGLESBY DO, CAMERON K 791.0 PROTEINURIA 09/04/2012 OGLESBY DO, CAMERON K 588.81 SECONDARY HYPERPARATHYROIDISM (OF RENAL ORIGIN) 09/04/2012 OGLESBY DO, CAMERON K 791.0 PROTEINURIA 09/04/2012 OGLESBY DO, CAMERON K 588.81 SECONDARY HYPERPARATHYROIDISM (OF RENAL ORIGIN) 09/04/2012 OGLESBY DO, CAMERON K 791.0 PROTEINURIA 09/04/2012 KEIRA FORD PSYD 588.81 SECONDARY HYPERPARATHYROIDISM (OF RENAL ORIGIN) 09/04/2012 KEIRA FORD PSYD 791.0 PROTEINURIA 09/04/2012 OGLESBY DO, CAMERON K 588.81 SECONDARY HYPERPARATHYROIDISM (OF RENAL ORIGIN) 09/04/2012 OGLESBY DO, CAMERON K 791.0 PROTEINURIA 09/04/2012 JORDAN MCDONALD APRN 588.81 SECONDARY HYPERPARATHYROIDISM (OF RENAL ORIGIN) 09/04/2012 JORDAN MCDONALD APRN 791.0 PROTEINURIA 09/04/2012 STACEY GAMINO PA-C 588.81 SECONDARY HYPERPARATHYROIDISM (OF RENAL ORIGIN) 09/04/2012 STACEY GAMINO PA-C 791.0 PROTEINURIA 09/04/2012 KEIRA FORD PSYD 588.81 SECONDARY HYPERPARATHYROIDISM (OF RENAL ORIGIN) 09/04/2012 KEIRA FORD PSYD 791.0 PROTEINURIA 11/07/2012 NATALY HERNÁNDEZ MD Ot 401.9 HYPERTENSION NOS 11/07/2012 NATALY HERNÁNDEZ MD Ot 785.1 PALPITATIONS 12/26/2012 CAMERON OGLESBY DO 717.3 OTHER AND UNSPECIFIED DERANGEMENT OF MEDIAL MENISCUS 12/26/2012 STACEY GAMINO PA-C 717.3 OTHER AND UNSPECIFIED DERANGEMENT OF MEDIAL MENISCUS 12/26/2012 CAMERON OGLESBY DO 717.3 OTHER AND UNSPECIFIED DERANGEMENT OF MEDIAL MENISCUS 12/26/2012 OGLESBY DO, CAMERON K 717.3 OTHER AND UNSPECIFIED DERANGEMENT OF MEDIAL MENISCUS 12/26/2012 OGLESBY DO, CAMERON K 717.3 OTHER AND UNSPECIFIED DERANGEMENT OF MEDIAL MENISCUS 12/26/2012 OGLESBY DO, CAMERON K 717.3 OTHER AND UNSPECIFIED DERANGEMENT OF MEDIAL MENISCUS 12/26/2012 OGLESBY DO, CAMERON K 717.3 OTHER AND UNSPECIFIED DERANGEMENT OF MEDIAL MENISCUS 12/26/2012 OGLESBY DO, CAMERON K 717.3 OTHER AND UNSPECIFIED DERANGEMENT OF MEDIAL MENISCUS 12/26/2012 CORLEY ANNUAL CAMPAIGN MANAGER, MAKSIM R 717.3 OTHER AND UNSPECIFIED DERANGEMENT OF MEDIAL MENISCUS 12/26/2012 CORLEY ANNUAL CAMPAIGN MANAGER, MAKSIM R 717.3 OTHER AND UNSPECIFIED DERANGEMENT OF MEDIAL MENISCUS 12/26/2012 OGLESBY DO, CAMERON K 717.3 OTHER AND UNSPECIFIED DERANGEMENT OF MEDIAL MENISCUS 12/26/2012 OGLESBY DO, CAMERON K 717.3 OTHER AND UNSPECIFIED DERANGEMENT OF MEDIAL MENISCUS 12/26/2012 OGLESBY DO, CAMERON K 717.3 OTHER AND UNSPECIFIED DERANGEMENT OF MEDIAL MENISCUS 12/26/2012 OGLESBY DO, CAMERON K 717.3 OTHER AND UNSPECIFIED DERANGEMENT OF MEDIAL MENISCUS 12/26/2012 OGLESBY DO, CAMERON K 717.3 OTHER AND UNSPECIFIED DERANGEMENT OF MEDIAL MENISCUS 12/26/2012 KEIRA FORD PSYD 717.3 OTHER AND UNSPECIFIED DERANGEMENT OF MEDIAL MENISCUS 12/26/2012 OGLESBY DO, CAMERON K 717.3 OTHER AND UNSPECIFIED DERANGEMENT OF MEDIAL MENISCUS 12/26/2012 JORDAN MCDONALD APRN 717.3 OTHER AND UNSPECIFIED DERANGEMENT OF MEDIAL MENISCUS 12/26/2012 STACEY GAMINO PA-C 717.3 OTHER AND UNSPECIFIED DERANGEMENT OF MEDIAL MENISCUS 12/26/2012 KEIRA FORD PSYD 717.3 OTHER AND UNSPECIFIED DERANGEMENT OF MEDIAL MENISCUS 02/27/2013 OGLESBY DO, CAMERON K 625.6 STRESS INCONTINENCE FEMALE 02/27/2013 OGLESBY DO, CAMERON K 625.6 STRESS INCONTINENCE FEMALE 02/27/2013 OGLESBY DO, CAMERON K 625.6 STRESS INCONTINENCE FEMALE 02/27/2013 OGLESBY DO, CAMERON K 625.6 STRESS INCONTINENCE FEMALE 02/27/2013 OGLESBY DO, CAMERON K 625.6 STRESS INCONTINENCE FEMALE 02/27/2013 BARNEY LIND, MAKSIM R 625.6 STRESS INCONTINENCE FEMALE 02/27/2013 BARNEY ANNUAL CAMPAIGN MANAGER, MAKSIM R 625.6 STRESS INCONTINENCE FEMALE 02/27/2013 OGLESBY DO, CAMERON K 625.6 STRESS INCONTINENCE FEMALE 02/27/2013 OGLESBY DO, CAMERON K 625.6 STRESS INCONTINENCE FEMALE 02/27/2013 OGLESBY DO, CAMERON K 625.6 STRESS INCONTINENCE FEMALE 02/27/2013 OGLESBY DO, CAMERON K 625.6 STRESS INCONTINENCE FEMALE 02/27/2013 OGLESBY DO, CAMERON K 625.6 STRESS INCONTINENCE FEMALE 02/27/2013 KEIRA FORD PSYD 625.6 STRESS INCONTINENCE FEMALE 02/27/2013 OGLESBY DO, CAMERON K 625.6 STRESS INCONTINENCE FEMALE 02/27/2013 JORDAN MCDONALD APRN 625.6 STRESS INCONTINENCE FEMALE 02/27/2013 HANNY HARTLEY, STACEY Strong 625.6 STRESS INCONTINENCE FEMALE 02/27/2013 KEIRA FORD PSYD 625.6 STRESS INCONTINENCE FEMALE 08/22/2013 OGLESBY DO, CAMERON K 585.4 CHRONIC KIDNEY DISEASE STAGE IV (SEVERE) 08/22/2013 OGLESBY DO, CAMERON K 784.0 HEADACHE 08/22/2013 OGLESBY DO, CAMERON K 585.4 CHRONIC KIDNEY DISEASE STAGE IV (SEVERE) 08/22/2013 OGLESBY DO, CAMERON K 784.0 HEADACHE 08/22/2013 LATISHA CORLEY APRNRICIA R 585.4 CHRONIC KIDNEY DISEASE STAGE IV ( SEVERE) 08/22/2013 LATISHA CORLEY APRNRICIA R 784.0 HEADACHE 08/22/2013 LATISHA CORLEY APRNRICIA R 585.4 CHRONIC KIDNEY DISEASE STAGE IV ( SEVERE) 08/22/2013 BARNEY LIND MAKSIM R 784.0 HEADACHE 08/22/2013 OGLESBY DO, CAMERON K 585.4 CHRONIC KIDNEY DISEASE STAGE IV (SEVERE) 08/22/2013 OGLESBY DO, CAMERON K 784.0 HEADACHE 08/22/2013 OGLESBY DO, CAMERON K 585.4 CHRONIC KIDNEY DISEASE STAGE IV (SEVERE) 08/22/2013 OGLESBY DO, CAMERON K 784.0 HEADACHE 08/22/2013 OGLESBY DO, CAMERON K 585.4 CHRONIC KIDNEY DISEASE STAGE IV (SEVERE) 08/22/2013 OGLESBY DO, CAMERON K 784.0 HEADACHE 08/22/2013 OGLESBY DO, CAMERON K 585.4 CHRONIC KIDNEY DISEASE STAGE IV (SEVERE) 08/22/2013 OGLESBY DO, CAMERON K 784.0 HEADACHE 08/22/2013 OGLESBY DO, CAMERON K 585.4 CHRONIC KIDNEY DISEASE STAGE IV (SEVERE) 08/22/2013 OGLESBY DO, CAMERON K 784.0 HEADACHE 08/22/2013 KEIRA FORD PSYD 585.4 CHRONIC KIDNEY DISEASE STAGE IV ( SEVERE) 08/22/2013 KEIRA FORD PSYD 784.0 HEADACHE 08/22/2013 OGLESBY DO, CAMERON K 585.4 CHRONIC KIDNEY DISEASE STAGE IV (SEVERE) 08/22/2013 OGLESBY DO, CAMERON K 784.0 HEADACHE 08/22/2013 JORDAN MCDONALD APRN 585.4 CHRONIC KIDNEY DISEASE STAGE IV (SEVERE) 08/22/2013 JORDAN MCDONALD APRN 784.0 HEADACHE 08/22/2013 STACEY GAMINO PA-C 585.4 CHRONIC KIDNEY DISEASE STAGE IV (SEVERE) 08/22/2013 STACEY GAMINO PA-C 784.0 HEADACHE 08/22/2013 KEIRA FORD PSYD 585.4 CHRONIC KIDNEY DISEASE STAGE IV ( SEVERE) 08/22/2013 KEIRA FORD PSYD 784.0 HEADACHE 10/29/2013 BARNEY LIND MAKSIM R 034.0 STREP THROAT 10/29/2013 BARNEY TAVERASN MAKSIM R 786.2 COUGH 10/29/2013 BARNEY ANNUAL CAMPAIGN MANAGER, MAKSIM R 034.0 STREP THROAT 10/29/2013 BARNEY ANNUAL CAMPAIGN MANAGER, MAKSIM R 786.2 COUGH 10/29/2013 OGLESBY DO, CAMERON K 034.0 STREP THROAT 10/29/2013 OGLESBY DO, CAMERON K 786.2 COUGH 10/29/2013 OGLESBY DO, CAMERON K 034.0 STREP THROAT 10/29/2013 OGLESBY DO, CAMERON K 786.2 COUGH 10/29/2013 OGLESBY DO, CAMERON K 034.0 STREP THROAT 10/29/2013 OGLESBY DO, CAMERON K 786.2 COUGH 10/29/2013 OGLESBY DO, CAMERON K 034.0 STREP THROAT 10/29/2013 OGLEBSY DO, CAMERON K 786.2 COUGH 10/29/2013 CAMERON OGLESBY DO K 034.0 STREP THROAT 10/29/2013 ESTHELA OGLESBY DOA K 786.2 COUGH 10/29/2013 KEIRA FORD PSYD L 034.0 STREP THROAT 10/29/2013 KEIRA FORD PSYD L 786.2 COUGH 10/29/2013 ESTHELA OGLESBY DOA K 034.0 STREP THROAT 10/29/2013 ESTHELA OGLESBY DOA K 786.2 COUGH 10/29/2013 JORDAN MCDONALD APRN 034.0 STREP THROAT 10/29/2013 JORDAN MCDONALD APRN 786.2 COUGH 10/29/2013 STACEY GAMINO PA-C 034.0 STREP THROAT 10/29/2013 STACEY GAMINO PA-C 786.2 COUGH 10/29/2013 KEIRA FORD PSYD 034.0 STREP THROAT 10/29/2013 KEIRA FORD PSYD 786.2 COUGH 03/30/2014 MENDEL WASSERMANCAMERON K 461.9 SINUSITIS ACUTE 03/30/2014 KEIRA FORD PSYD 461.9 SINUSITIS ACUTE 03/30/2014 MENDEL WASSERMANCAMERON 461.9 SINUSITIS ACUTE 03/30/2014 JORDAN MCDONALD APRN 461.9 SINUSITIS ACUTE 03/30/2014 STACEY GAMINO PA-C 461.9 SINUSITIS ACUTE 03/30/2014 KEIRA FORD PSYD 461.9 SINUSITIS ACUTE 05/29/2014 KEIRA FORD PSYD 786.02 ORTHOPNEA 05/29/2014 MENDEL WASSERMANCAMERON K 786.02 ORTHOPNEA 05/29/2014 JORDAN MCDONALD APRN 786.02 ORTHOPNEA 05/29/2014 STACEY GAMINO PA-C 786.02 ORTHOPNEA 05/29/2014 KEIRA FORD PSYD 786.02 ORTHOPNEA 06/01/2014 KEIRA FORD PSYD 300.02 AN GEN ANXIETY 06/01/2014 MENDEL CAMERON WASSERMAN K 300.02 AN GEN ANXIETY 06/01/2014 JORDAN MCDONALD APRN 300.02 AN GEN ANXIETY 06/01/2014 STACEY GAMINO PA-C 300.02 AN GEN ANXIETY 06/01/2014 KEIRA FORD PSYD L 300.02 AN GEN ANXIETY 06/04/2014 CAMERON OGLESBY DO K 824.2 FRACTURE OF LATERAL MALLEOLUS CLOSED 06/04/2014 CAMERON OGLESBY DO K 845.00 UNSPECIFIED SITE OF ANKLE SPRAIN 06/04/2014 JORDAN MCDONALD APRN 824.2 FRACTURE OF LATERAL MALLEOLUS CLOSED 06/04/2014 JRODAN MCDONALD APRN 845.00 UNSPECIFIED SITE OF ANKLE SPRAIN 06/04/2014 STACEY GAMINO PA-C 824.2 FRACTURE OF LATERAL MALLEOLUS CLOSED 06/04/2014 STACEY GAMINO PA-C 845.00 UNSPECIFIED SITE OF ANKLE SPRAIN 06/04/2014 KEIRA FORD PSYD 824.2 FRACTURE OF LATERAL MALLEOLUS CLOSED 06/04/2014 KEIRA FORD PSYD 845.00 UNSPECIFIED SITE OF ANKLE SPRAIN 06/26/2014 CAMERON OGLESBY DO K 388.70 OTALGIA UNSPECIFIED 06/26/2014 JORDAN MCDONALD APRN 388.70 OTALGIA UNSPECIFIED 06/26/2014 STACEY GAMINO PA-C 388.70 OTALGIA UNSPECIFIED 06/26/2014 KEIRA FORD PSYD 388.70 OTALGIA UNSPECIFIED 01/13/2015 KERA MARINA Ot V76.12 01/18/2015 KERA MARINA Ot V76.12 01/18/2015 ARUNA HERNANDEZ MD Ot 414.00 01/18/2015 ARUNA HERNANDEZ MD Ot 427.31 01/18/2015 ARUNA HERNANDEZ MD Ot 786.50 01/19/2015 ARUNA HERNANDEZ MD Ot 414.00 01/19/2015 ARUNA HERNANDEZ MD Ot 427.31 01/19/2015 ARUNA HERNANDEZ MD Ot 786.50 01/20/2015 Ot 719.45 01/20/2015 Ot 354.0 01/20/2015 Ot V72.83 01/20/2015 Ot V74.8 01/20/2015 Ot 354.0 01/20/2015 Ot V72.83 01/20/2015 Ot V74.8 01/20/2015 Ot 414.9 01/20/2015 Ot 786.05 01/20/2015 Ot 786.50 01/20/2015 Ot 397.0 01/20/2015 Ot 786.50 01/20/2015 Ot V58.69 01/20/2015 Ot V64.3 01/20/2015 Ot 786.05 01/20/2015 Ot 786.50 01/20/2015 ARUNA HERNANDEZ MD Ot 414.00 01/20/2015 ARUNA HERNANDEZ MD Ot 427.31 01/20/2015 ARUNA HERNANDEZ MD Ot 786.50 01/20/2015 Ot 719.45 01/20/2015 Ot 354.0 01/20/2015 Ot V72.83 01/20/2015 Ot V74.8 01/20/2015 Ot 354.0 01/20/2015 Ot V72.83 01/20/2015 Ot V74.8 01/20/2015 Ot 414.9 01/20/2015 Ot 786.05 01/20/2015 Ot 786.50 01/20/2015 Ot 397.0 01/20/2015 Ot 786.50 01/20/2015 Ot V58.69 01/20/2015 Ot V64.3 01/20/2015 Ot 786.05 01/20/2015 Ot 786.50 01/20/2015 ARUNA HERNANDEZ MD Ot 414.00 01/20/2015 ARUNA HERNANDEZ MD Ot 427.31 01/20/2015 ARUNA HERNANDEZ MD Ot 786.50 01/20/2015 ARUNA HERNANDEZ MD Ot E03.9 HYPOTHYROIDISM, UNSPECIFIED 01/20/2015 ARUNA HERNANDEZ MD Ot E66.01 MORBID (SEVERE) OBESITY DUE TO EXCESS CA 01/20/2015 ARUNA HERNANDEZ MD Ot E78.5 HYPERLIPIDEMIA, UNSPECIFIED 01/20/2015 ARUNA HERNANDEZ MD Ot I12.9 HYPERTENSIVE CHRONIC KIDNEY DISEASE W ST 01/20/2015 ARUNA HERNANDEZ MD Ot I25.10 ATHSCL HEART DISEASE OF [place] CORONARY 01/20/2015 ARUNA HERNANDEZ MD Ot N18.4 CHRONIC KIDNEY DISEASE, STAGE 4 (SEVERE) 01/20/2015 ARUNA HERNANDEZ MD Ot R07.9 CHEST PAIN, UNSPECIFIED 01/20/2015 ARUNA HERNANDEZ MD Ot R94.39 ABNORMAL RESULT OF OTHER CARDIOVASCULAR 01/20/2015 ARUNA HERNANDEZ MD Ot Z68.42 BODY MASS INDEX (BMI) 45.0-49.9, ADULT 01/20/2015 ARUNA HERNANDEZ MD Ot 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 03/25/2015 FELICIANO WAYNE APRN Ot K52.9 NONINFECTIVE GASTROENTERITIS AND COLITIS 03/25/2015 FELICIANO WAYNE APRN Ot N39.0 URINARY TRACT INFECTION, SITE NOT SPECIF 03/25/2015 FELICIANO WAYNE APRN Ot Z90.49 ACQUIRED ABSENCE OF OTHER SPECIFIED PART 06/07/2015 ARUNA HERNANDEZ MD Ot 414.00 06/07/2015 ARUNA HERNANDEZ MD Ot 427.31 06/07/2015 ARUNA HERNANDEZ MD Ot 786.50 06/07/2015 ARUNA HERNANDEZ MD Ot 414.00 06/07/2015 ARUNA HERNANDEZ MD Ot 427.31 06/07/2015 ARUNA HERNANDEZ MD Ot 786.50 06/07/2015 ARUNA HERNADNEZ MD Ot 414.00 06/07/2015 ARUNA HERNANDEZ MD Ot 427.31 06/07/2015 ARUNA HERNANDEZ MD Ot 786.50 06/07/2015 BEVERLY WHITMORE DO Ot K22.5 06/07/2015 BEVERLY WHITMORE DO Ot R13.10 06/07/2015 BEVERLY WHITMORE DO Ot K22.5 06/07/2015 BEVERLY WHITMORE DO Ot R13.10 06/07/2015 ARUNA HERNANDEZ MD Ot 414.00 06/07/2015 ARUNA HERNANDEZ MD Ot 427.31 06/07/2015 ARUNA HERNANDEZ MD Ot 786.50 06/07/2015 BEVERLY WHITMORE DO Ot K22.5 06/07/2015 BEVERLY WHITMORE DO Ot R13.10 06/14/2015 ARUNA HERNANDEZ MD Ot 414.00 06/14/2015 AURNA HERNANDEZ MD Ot 427.31 06/14/2015 ARUNA HERNANDEZ MD Ot 786.50 09/23/2015 KERA MARINA ERP ENGINEER Ot V76.12 OTH SCREEN MAMMO-MALIGN NEOPLASM OF CHARLIE 09/23/2015 ARUNA HERNANDEZ MD Ot 414.00 CORON ATHEROSCLER NOS TYPE VESSEL, NATIV 09/23/2015 ARUNA HERNANDEZ MD Ot 427.31 ATRIAL FIBRILLATION 09/23/2015 ARUNA HERNANDEZ MD Ot 786.50 CHEST PAIN NOS 09/23/2015 WHITMOREBEVERLY WAGNER DO Ot K22.5 DIVERTICULUM OF ESOPHAGUS, ACQUIRED 09/23/2015 CAMPO BEVERLY WASSERMAN Ot R13.10 DYSPHAGIA, UNSPECIFIED 09/29/2015 CAMPO BEVERLY WASSERMAN Ot K52.9 NONINFECTIVE GASTROENTERITIS AND COLITIS 09/29/2015 BEVERLY WHITMORE DO Ot Z01.818 ENCOUNTER FOR OTHER PREPROCEDURAL EXAMIN 09/29/2015 TU ISABEL L ERP ENGINEER Ot Z12.31 ENCNTR SCREEN MAMMOGRAM FOR MALIGNANT NE 09/30/2015 CAMPO BEVERLY WASSERMAN Ot K52.9 NONINFECTIVE GASTROENTERITIS AND COLITIS 09/30/2015 CAMPO BEVERLY WASSERMAN D Ot Z01.818 ENCOUNTER FOR OTHER PREPROCEDURAL EXAMIN 10/05/2015 BEVERLY WHITMORE DO D Ot K52.9 NONINFECTIVE GASTROENTERITIS AND COLITIS 10/05/2015 WHITMORE BEVERLY WASSERMAN Ot Z86.010 PERSONAL HISTORY OF COLONIC POLYPS 10/07/2015 CAMPO BEVERLY WASSERMAN D Ot K52.9 NONINFECTIVE GASTROENTERITIS AND COLITIS 10/07/2015 WHITMORE BEVERLY WASSERMAN D Ot Z86.010 PERSONAL HISTORY OF COLONIC POLYPS 10/08/2015 CAMPO BEVERLY WASSERMAN D Ot K52.9 NONINFECTIVE GASTROENTERITIS AND COLITIS 10/08/2015 CAMPO BEVERLY WASSERMAN D Ot Z86.010 PERSONAL HISTORY OF COLONIC POLYPS 10/08/2015 WHITMORE BINA WASSERMANTT D Ot K52.9 NONINFECTIVE GASTROENTERITIS AND COLITIS 10/08/2015 WHITMORE BEVERLY WASSERMAN D Ot Z86.010 PERSONAL HISTORY OF COLONIC POLYPS 04/06/2016 WHITMORE BEVERLY WASSERMAN D Ot K22.5 DIVERTICULUM OF ESOPHAGUS, ACQUIRED 04/06/2016 WHITMORE BEVERLY WASSERMAN Ot R13.10 DYSPHAGIA, UNSPECIFIED 04/06/2016 ARUNA HERNANDEZ MD Ot 414.00 CORON ATHEROSCLER NOS TYPE VESSEL, NATIV 04/06/2016 DAVID DOHERTY, ARUNA Hernandez Ot 427.31 ATRIAL FIBRILLATION 04/06/2016 DAVID DOHERTY, ARUNA Hernandez Ot 786.50 CHEST PAIN NOS 04/06/2016 BEVERLY WHITMORE DO Ot K22.5 DIVERTICULUM OF ESOPHAGUS, ACQUIRED 04/06/2016 BEVERLY WHITMORE DO Ot R13.10 DYSPHAGIA, UNSPECIFIED 04/07/2016 FELICIANO WAYNE APRN Ot K52.9 NONINFECTIVE GASTROENTERITIS AND COLITIS 04/07/2016 FELICIANO WAYNE ANNUAL CAMPAIGN MANAGER Ot N39.0 URINARY TRACT INFECTION, SITE NOT SPECIF 04/07/2016 FELICIANO WAYNE ANNUAL CAMPAIGN MANAGER Ot Z90.49 ACQUIRED ABSENCE OF OTHER SPECIFIED PART 04/14/2016 CHARLYLISABEL ERP ENGINEER Ot E55.9 VITAMIN D DEFICIENCY, UNSPECIFIED 04/14/2016 MADRAMESH ReyesA Amy ERP ENGINEER Ot M85.89 OTH DISRD OF BONE DENSITY AND STRUCTURE, 04/26/2016 ISABEL MAE ERP ENGINEER Ot E55.9 VITAMIN D DEFICIENCY, UNSPECIFIED 04/26/2016 MADLCHEYENNEISABEL L ERP ENGINEER Ot M85.89 OTH DISRD OF BONE DENSITY AND STRUCTURE, 05/01/2016 BEVERLY WHITMORE DO Ot K22.5 DIVERTICULUM OF ESOPHAGUS, ACQUIRED 05/01/2016 BEVERLY WHITMORE DO Ot R13.10 DYSPHAGIA, UNSPECIFIED 05/15/2016 JULIAN DOHERTY, RUSTAM Guerra Ot M17.11 UNILATERAL PRIMARY OSTEOARTHRITIS, RIGHT 05/15/2016 JULIAN DOHERTY, RUSTAM Guerra Ot M17.12 UNILATERAL PRIMARY OSTEOARTHRITIS, LEFT 05/15/2016 JULIAN DOHERTY, RUSTAM Guerra Ot M54.16 RADICULOPATHY, LUMBAR REGION 05/18/2016 RUSTAM JORDAN MD Ot M17.11 UNILATERAL PRIMARY OSTEOARTHRITIS, RIGHT 05/18/2016 JULIAN DOHERTY, RUSTAM Guerra Ot M17.12 UNILATERAL PRIMARY OSTEOARTHRITIS, LEFT 05/18/2016 JULIAN DOHERTY, RUSTAM Guerra Ot M54.16 RADICULOPATHY, LUMBAR REGION 05/18/2016 JULIAN DOHERTY, RUSTAM Guerra Ot M17.11 UNILATERAL PRIMARY OSTEOARTHRITIS, RIGHT 05/18/2016 JULIAN DOHERTY, RUSTAM Guerra Ot M17.12 UNILATERAL PRIMARY OSTEOARTHRITIS, LEFT 05/18/2016 RUSTAM JORDAN MD Ot M54.16 RADICULOPATHY, LUMBAR REGION 05/26/2016 RUSTAM JORDAN MD, Ot M17.11 UNILATERAL PRIMARY OSTEOARTHRITIS, RIGHT 05/26/2016 RUSTAM JORDAN MD, Ot M17.12 UNILATERAL PRIMARY OSTEOARTHRITIS, LEFT 05/26/2016 RUSTAM JORDAN MD, Ot M54.16 RADICULOPATHY, LUMBAR REGION 06/19/2016 BRENTON BENNETT MD Ot E66.01 MORBID (SEVERE) OBESITY DUE TO EXCESS CA 06/19/2016 BRENTON BENNETT MD, Ot M47.816 SPONDYLOSIS W/O MYELOPATHY OR RADICULOPA 06/19/2016 BRENTON BENNETT MD, Ot M53.3 SACROCOCCYGEAL DISORDERS, NOT ELSEWHERE 06/19/2016 BRENTON BENNETT MD, Ot M79.7 FIBROMYALGIA 06/19/2016 BRENTON BENNETT MD, Ot Z68.41 BODY MASS INDEX (BMI) 40.0-44.9, ADULT 06/19/2016 BRENTON BENNETT MD, Ot 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 06/19/2016 KERA MARINA Ot V76.12 OTH SCREEN MAMMO-MALIGN NEOPLASM OF [place] 06/19/2016 ARUNA HERNANDEZ MD Ot 414.00 CORON ATHEROSCLER NOS TYPE VESSEL, NATIV 06/19/2016 ARUNA HERNANDEZ MD Ot 427.31 ATRIAL FIBRILLATION 06/19/2016 ARUAN HERNANDEZ MD Ot 786.50 CHEST PAIN NOS 06/19/2016 BEVERLY WHITMORE DO Ot K22.5 DIVERTICULUM OF ESOPHAGUS, ACQUIRED 06/19/2016 BEVERLY WHITMORE DO Ot R13.10 DYSPHAGIA, UNSPECIFIED 06/19/2016 ISABEL MAE Ot Z12.31 ENCNTR SCREEN MAMMOGRAM FOR MALIGNANT NE 06/19/2016 ISABEL MAE Ot E55.9 VITAMIN D DEFICIENCY, UNSPECIFIED 06/19/2016 ISABEL MAE Ot M85.89 OTH DISRD OF BONE DENSITY AND STRUCTURE, 06/19/2016 RUSTAM JORDAN MD, Ot M17.11 UNILATERAL PRIMARY OSTEOARTHRITIS, RIGHT 06/19/2016 RUSTAM JORDAN MD, Ot M17.12 UNILATERAL PRIMARY OSTEOARTHRITIS, LEFT 06/19/2016 JULIAN DOHERTY, RUSTAM Guerra Ot M54.16 RADICULOPATHY, LUMBAR REGION 07/04/2016 BRENTON BENNETT MD, Ot E66.01 MORBID (SEVERE) OBESITY DUE TO EXCESS CA 07/04/2016 BRENTON BENNETT MD, Ot M47.816 SPONDYLOSIS W/O MYELOPATHY OR RADICULOPA 07/04/2016 BRENTON BENNETT MD, Ot M53.3 SACROCOCCYGEAL DISORDERS, NOT ELSEWHERE 07/04/2016 BRENTON BENNETT MD, Ot M79.7 FIBROMYALGIA 07/04/2016 BRENTON BENNETT MD, Ot Z68.41 BODY MASS INDEX (BMI) 40.0-44.9, ADULT 07/04/2016 BRENTON BENNETT MD, Ot Z79.899 OTHER JAIL (CURRENT) DRUG THERAPY 07/14/2016 BRENTON BENNETT MD, Ot E66.01 MORBID (SEVERE) OBESITY DUE TO EXCESS CA 07/14/2016 BRENTON BENNETT MD, Ot M47.816 SPONDYLOSIS W/O MYELOPATHY OR RADICULOPA 07/14/2016 BRENTON BENNETT MD, Ot M53.3 SACROCOCCYGEAL DISORDERS, NOT ELSEWHERE 07/14/2016 BRENTON BENNETT MD, Ot M79.7 FIBROMYALGIA 07/14/2016 BRENTON BENNETT MD, Ot Z68.41 BODY MASS INDEX (BMI) 40.0-44.9, ADULT 07/14/2016 BRENTON BENNETT MD, Ot 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 Procedures Code Description Performed By Performed On 45.16 ESOPHAGOGASTRODUODENOSCOPY [EGD] W/CLOSE 01/12/2011 45.25 CLOSED ENDOSCOPIC BIOPSY OF LARGE INTEST 01/12/2011 21488 ROUTINE VENIPUNCTURE 02/14/2012 32437 MYCOPLASMA ANTIBODY 02/14/2012 54078 XRAY CHEST 2 VIEW 02/20/2012 51955 XRAY CHEST 2 VIEW 02/20/2012 43293 ROUTINE VENIPUNCTURE 04/02/2012 36756 CMP 04/02/2012 67745 LIPID PANEL 04/02 [id number] GFR CALC (RESULT ONLY) 04/02/2012 05200 CBC 04/02/2012 47850 IRON SERUM 2011 90099 TSH 04/03/2012 05376 JOINT INJECTION- LARGE JOINT (SPECIFY MEDCIN DESCRIPTION) 04/18/2012 07942 XRAY KNEE RIGHT 1 OR 2 VIEWS 04/18/2012 J1040 DEPO MEDROL 80 MG INJ 04/18/2012 54395 ROUTINE VENIPUNCTURE 05/03/2012 13061 LIPID PANEL 05/03 03542 RENAL PROFILE 55032 UA W/MICROSCOPY 05/03/2012 34038 PTH (intact) 56806 PHOSPHORUS 2012 15858 CBC 05/03/2012 98198 CULTURE URINE IRGROUP IRON GROUP (Iron,TIBC, Ferritin) 05/03/2012 PRO/CRE URINE PROTEIN TO CREATNINE RATIO 05/03/2012 94229 ROUTINE VENIPUNCTURE 06/13/2012 55719 BNP 06/13/2012 04641 CRP HS (CARDIO) 06/13/2012 90343 ROUTINE VENIPUNCTURE 07/17/2012 46914 LIVER PANEL (LFT) 07/17/2012 4852430 GFR CALC (RESULT ONLY) 07/17/2012 56531 TSH 07/17/2012 70213 RENAL PROFILE 06/2012 54792 HOLTER MONITOR 04977 ECHO 2D 2012 57703 ROUTINE VENIPUNCTURE 09/04/2012 20634 CBC 09/04/2012 98208 UA W/ CULTURE IF INDICATED 09/04/2012 41481 VITAMIN D 25-HYDROXY (D2,D3, TOTAL) 09/04/2012 80765 FERRITIN 2012 08983 RENAL PROFILE 85560 IRON SERUM 2012 64995 IRON BNDNG CAP [id number] GFR CALC (RESULT ONLY) 09/04/2012 PRO/CRE URINE PROTEIN TO CREATNINE RATIO 09/04/2012 92394 CULTURE URINE IRGROUP IRON GROUP (Iron,TIBC, Ferritin) 09/04/2012 27189 JOINT INJECTION- LARGE JOINT (SPECIFY MEDCIN DESCRIPTION) 10/10/2012 38431 JOINT INJECTION- LARGE JOINT (SPECIFY MEDCIN DESCRIPTION) 12/26/2012 75608 JOINT INJECTION- LARGE JOINT (SPECIFY MEDCIN DESCRIPTION) 02/06/2013 17689 ROUTINE VENIPUNCTURE 02/27/2013 18670 LIPID PANEL 02/27 98914 TSH 02/27/2013 92981 CBC 07/21/2013 55896 RENAL PROFILE 10/2013 97422 IRON SERUM 2013 76853 IRON BNDNG CAP [id number] GFR CALC (RESULT ONLY) 07/21/2013 PRO/CRE URINE PROTEIN TO CREATNINE RATIO 07/21/2013 58954 VITAMIN D 25-HYDROXY (D2,D3, TOTAL) 07/21/2013 00342 FERRITIN 2013 37740 URINE MICROSCOPIC EXAM 07/21/2013 IRGROUP IRON GROUP (Iron,TIBC, Ferritin) 07/22/2013 75973 JOINT INJECTION- LARGE JOINT (SPECIFY MEDCIN DESCRIPTION) 08/21/2013 83459 ROUTINE VENIPUNCTURE 08/22/2013 [id number] GFR CALC (RESULT ONLY) 08/22/2013 54233 CMP 08/22/2013 29520 TSH 08/22/2013 77250 ROUTINE VENIPUNCTURE 10/06/2013 40670 CMP 10/06/2013 13374 STREP A (IN-HOUSE) 10/29/2013 87876 NEBULIZER TREATMENT 10/29/2013 51961 OXIMETRY 2013 98551 OXIMETRY 2013 61744 JOINT INJECTION- LARGE JOINT (SPECIFY MEDCIN DESCRIPTION) 12/04/2013 30043 ROUTINE VENIPUNCTURE 01/19/2014 4351898 GFR CALC (RESULT ONLY) 01/19/2014 74744 LIPID PANEL 01/19 29812 RENAL PROFILE 09/2013 39515 IRON SERUM 2013 28826 IRON BNDNG CAP 97717 CBC 01/19/2014 66367 TSH 01/19/2014 PRO/CRE URINE PROTEIN TO CREATNINE RATIO 01/19/2014 95014 VITAMIN D 25-HYDROXY (D2,D3, TOTAL) 01/19/2014 66523 FERRITIN 2013 71517 UA W/MICROSCOPY 01/19/2014 IRGROUP IRON GROUP (IRON,TIBC, FERRITIN) 01/20/2014 36298 INFLUENZA A & B (IN-HOUSE) 03/30/2014 23708 OXIMETRY 2013 35333 PSYCH DIAGNOSTIC EVALUATION 06/01/2014 02912 ROUTINE VENIPUNCTURE 07/16/2014 56747 XRAY ANKLE L COMP MIN, 3 VIEWS 07/16/2014 45845 RENAL PROFILE 05/2014 28803 UA W/MICROSCOPY 07/16/2014 13897 VITAMIN D 25-HYDROXY (D2,D3, TOTAL) 07/16/2014 10803 PTH (intact) (ORDER ONLY) 07/16/2014 91340 CBC 07/16/2014 IRGROUP IRON GROUP (Iron,TIBC, Ferritin) 07/16/2014 PRO/CRE URINE PROTEIN TO CREATNINE RATIO 07/16/2014 56902 PSYTX PT&/FAMILY 45 MINUTES 08/03/2014 Results Test Result Range Complete blood count (CBC) with automated white blood cell (WBC) differential - 10/03/16 18:42 Blood leukocytes automated count (number/volume) 8.7 10*3/ uL 4.3-11.0 Blood erythrocytes automated count (number/volume) 4.19 10*6 /uL 4.35-5.85 Venous blood hemoglobin measurement (mass/volume) 12.1 g/dL 11.5-16.0 Blood hematocrit (volume fraction) 38 % 35-52 Automated erythrocyte mean corpuscular volume 91 [foz_us] 80-99 Automated erythrocyte mean corpuscular hemoglobin (mass per erythrocyte) 29 pg 25-34 Automated erythrocyte mean corpuscular hemoglobin concentration measurement ( mass/volume) 32 g/dL 32-36 Automated erythrocyte distribution width ratio 13.4 % 10.0-14.5 Automated blood platelet count (count/volume) 283 10*3/uL 130-400 Automated blood platelet mean volume measurement 9.8 [foz_us ] 7.4-10.4 Automated blood neutrophils/100 leukocytes 60 % 42-75 Automated blood lymphocytes/100 leukocytes 27 % 12-44 Blood monocytes/100 leukocytes 8 % 0-12 Automated blood eosinophils/100 leukocytes 4 % 0-10 Automated blood basophils/100 leukocytes 1 % 0-10 Blood neutrophils automated count (number/volume) 5.3 10*3 1.8-7.8 Blood lymphocytes automated count (number/volume) 2.3 10*3 1.0-4.0 Blood monocytes automated count (number/volume) 0.7 10*3 0.0-1.0 Automated eosinophil count 0.3 10*3/uL 0.0-0.3 Automated blood basophil count (count/volume) 0.1 10*3/uL 0.0-0.1 Comprehensive metabolic panel - 10/03/16 18:42 Serum or plasma sodium measurement (moles/volume) 142 mmol/ L 135-145 Serum or plasma potassium measurement (moles/volume) 4.1 mmol/L 3.6-5.0 Serum or plasma chloride measurement (moles/volume) 103 mmol /L 98-107 Carbon dioxide 27 mmol/L 21-32 Serum or plasma anion gap determination (moles/volume) 12 mmol/L 5-14 Serum or plasma urea nitrogen measurement (mass/volume) 14 mg/dL 7-18 Serum or plasma creatinine measurement (mass/volume) 1.13 mg /dL 0.60-1.30 Serum or plasma urea nitrogen/creatinine mass ratio 12 0-20 Serum or plasma creatinine measurement with calculation of estimated glomerular filtration rate 50 NRG Serum or plasma glucose measurement (mass/volume) 97 mg/dL 70-105 Serum or plasma calcium measurement (mass/volume) 10.2 mg/ dL 8.5-10.1 Serum or plasma total bilirubin measurement (mass/volume) 0.4 mg/dL 0.1-1.0 Serum or plasma alkaline phosphatase measurement (enzymatic activity/volume) 111 U/L 40-136 Serum or plasma aspartate aminotransferase measurement (enzymatic activity/ volume) 23 U/L 5-34 Serum or plasma alanine aminotransferase measurement (enzymatic activity/volume ) 21 U/L 0-55 Serum or plasma protein measurement (mass/volume) 7.8 g/dL 6.4-8.2 Serum or plasma albumin measurement (mass/volume) 4.4 g/dL 3.2-4.5 Magnesium - 10/03/16 18:42 Magnesium 1.9 mg/dL 1.8-2.4 Serum or plasma thyroxine (T4) free measurement (mass/volume) - 10/03/16 18:42 Serum or plasma thyroxine (T4) free measurement (mass/volume) 0.84 ng/dL 0.70-1.48 THYROID STIMULATING HORMONE - 10/03/16 18:42 THYROID STIMULATING HORMONE 6.19 u[iU]/mL 0.35-4.94 Serum or plasma thyroxine (T4) free measurement (mass/volume) - 10/03/16 18:42 Serum or plasma thyroxine (T4) free measurement (mass/volume) 0.84 ng/dL 0.70-1.48 Complete urinalysis with reflex to culture - 10/03/16 19:40 Urine color determination YELLOW NRG Urine clarity determination CLEAR NRG Urine pH measurement by test strip 7 5- 9 Specific gravity of urine by test strip 1.005 1.016-1.022 Urine protein assay by test strip, semi-quantitative NEGATIVE NEGATIVE Urine glucose detection by automated test strip NEGATIVE NEGATIVE Erythrocytes detection in urine sediment by light microscopy NEGATIVE NEGATIVE Urine ketones detection by automated test strip NEGATIVE NEGATIVE Urine nitrite detection by test strip NEGATIVE NEGATIVE Urine total bilirubin detection by test strip NEGATIVE NEGATIVE Urine urobilinogen measurement by automated test strip (mass/volume) NORMAL NORMAL Urine leukocyte esterase detection by dipstick 1+ NEGATIVE Automated urine sediment erythrocyte count by microscopy (number/high power field) NONE NRG Automated urine sediment leukocyte count by microscopy (number/high power field ) [HPF] NRG Bacteria detection in urine sediment by light microscopy TRACE NRG Squamous epithelial cells detection in urine sediment by light microscopy 2-5 NRG Crystals detection in urine sediment by light microscopy NONE NRG Casts detection in urine sediment by light microscopy NONE NRG Mucus detection in urine sediment by light microscopy NEGATIVE NRG Complete urinalysis with reflex to culture NO NRG Encounters ACCT No. Visit Date/Time Discharge Status Pt. Type Provider Facility Loc./Unit Complaint [id number] 08/03/2014 11:11:00 08/03/2014 23: 59:59 CLS Outpatient KEIRA FORD PSYD [id number] 07/16/2014 14:45:00 07/16/2014 23: 59:59 CLS Outpatient STACEY GAMINO PA-C [id number] 07/16/2014 13:19:00 07/16/2014 23: 59:59 CLS Outpatient JORDAN MCDONALD APRN [id number] 06/26/2014 14:04:00 06/26/2014 23: 59:59 CLS Outpatient CAMERON OGLESBY DO [id number] 06/01/2014 14:19:00 06/01/2014 23: 59:59 CLS Outpatient KEIRA FORD PSYD [id number] 03/30/2014 17:38:00 03/30/2014 23: 59:59 CLS Outpatient CAMERON OGLESBY DO [id number] 03/09/2014 15:44:00 03/09/2014 23: 59:59 CLS Outpatient CAMERON OGLESBY DO [id number] 01/19/2014 13:00:00 01/19/2014 23: 59:59 CLS Outpatient CAMERON OGLESBY DO [id number] 12/04/2013 13:21:00 12/04/2013 23: 59:59 CLS Outpatient OGLESBY DOCAMERON [id number] 11/11/2013 09:48:00 11/11/2013 23: 59:59 CLS Outpatient OGLESBY DOCAMERON [id number] 10/30/2013 15:08:00 10/30/2013 23: 59:59 CLS Outpatient MAKSIM CORLEY APRN Hao [id number] 10/29/2013 14:54:00 10/29/2013 23: 59:59 CLS Outpatient MAKSIM CORLEY APRN Hao [id number] 10/06/2013 17:38:00 10/06/2013 23: 59:59 CLS Outpatient OGLESBY DOCAMERON [id number] 08/22/2013 14:45:00 08/22/2013 23: 59:59 CLS Outpatient OGLESBY DOCAMERON [id number] 08/21/2013 15:27:00 08/21/2013 23: 59:59 CLS Outpatient OGLESBY DOCAMERON [id number] 07/21/2013 15:10:00 07/21/2013 23: 59:59 CLS Outpatient OGLESBY DOCAMERON [id number] 02/27/2013 11:08:00 02/27/2013 23: 59:59 CLS Outpatient OGLESBY DOCAMERON Carolee [id number] 02/06/2013 13:11:00 02/06/2013 23: 59:59 CLS Outpatient OGLESBY DOCAMERON [id number] 01/21/2013 14:19:00 01/21/2013 23: 59:59 CLS Outpatient STACEY GAMINO PA-C [id number] 12/26/2012 15:23:00 12/26/2012 23: 59:59 CLS Outpatient OGLESBY DOCAMERON Carolee [id number] 07/17/2012 10:57:00 07/17/2012 23: 59:59 CLS Outpatient STACEY GAMINO PA-C [id number] 06/13/2012 09:58:00 06/13/2012 23: 59:59 CLS Outpatient OGLESBY DOCAMERON Carolee [id number] 06/03/2012 17:45:00 06/03/2012 23: 59:59 CLS Outpatient [id number] 05/03/2012 10:09:00 05/03/2012 23: 59:59 CLS Outpatient OGLESBY DOESTHELAYovana Zarco [id number] 04/18/2012 14:02:00 04/18/2012 23: 59:59 CLS Outpatient CAMERON OGLESBY DO [id number] 04/02/2012 09:07:00 04/02/2012 23: 59:59 CLS Outpatient [id number] 02/23/2012 10:48:00 02/23/2012 23: 59:59 CLS Outpatient [id number] 01/10/2012 14:14:00 01/10/2012 23: 59:59 CLS Outpatient CAMERON OGLESBY DO [id number] 10/10/2012 14:51:00 Document Registration [id number] 09/04/2012 14:08:00 Document Registration [id number] 08/09/2012 13:27:00 Document Registration
--- OUTSIDE RECORDS SUMMARY | 2016-10-05 16:47 | XMS REPORT ---
Author Author ISABEL MAE Organization [employer] Address Unknown Phone Unavailable Care Team Providers Care Air Pollution Auditor Name Role Phone ISABEL MAE CP Unavailable Allergies No Known Allergies Problems Problem Type Condition Code Onset Dates Condition Status Problem Dysthymic 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 Active Problem Generalized anxiety disorder F41.1 Active Problem Acute non-recurrent maxillary sinusitis J01.00 Active Problem Restless leg G25.81 Active Problem History of anemia Z86.2 Active Problem Depressed F32.9 Active Problem Dysuria R30.0 Active Problem Other seasonal allergic rhinitis J30.2 Active Problem Asthma with acute exacerbation in adult J45.901 Active Problem Fibromyalgia M79.7 Active Problem Chronic kidney disease, stage IV (severe) N18.4 Active Problem Insomnia G47.00 Active Problem Palpitations R00.2 Active Problem Mixed stress and urge urinary incontinence N39.46 Active Problem Asthma J45.909 Active Problem Yeast dermatitis B37.2 Active Problem Hypokalemia E87.6 Active Problem Vitamin D deficiency, unspecified E55.9 Active Problem Dyspepsia R10.13 Active Problem Coronary artery disease involving [place] coronary artery of [place] heart, angina presence unspecified I25.10 Active Problem Chronic kidney disease, stage 4 (severe) N18.4 Active Problem Hypothyroid E03.9 Active Problem Hypertension I10 Active Problem Bowel habit changes R19.4 Active Problem Urinary problem R39.89 Active Problem History of colon polyps Z86.010 Active Problem Functional 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 Active Medications No Known Medications Results No Known Results Summary Purpose eClinicalWorks Submission
--- OUTSIDE RECORDS SUMMARY | 2016-10-05 16:47 | XMS REPORT | Clinical Summary ---
Author Author Admin, MONICA Organization [facility] Address Unknown Phone Unavailable Allergies, Adverse Reactions, [...] as needed for muscle spasm/pain CYCLOBENZAPRINE HCL 08104893221 Active David Marcelino MD Active EQ FIBER THERAPY 0.52 GM ORAL CAPS 1 cap by mouth three times daily PSYLLIUM 73223694472 Active David Marcelino MD Active FISH OIL CONCENTRATE 1000 MG ORAL CAPS 3 caps by mouth daily OMEGA-3 FATTY ACIDS 05616792133 Active David Marcelino MD Active VITAMIN D3 87260 UNIT ORAL TABS 1 cap by mouth monthly CHOLECALCIFEROL 52452355518 Active David Marcelino MD Active VITAMIN C PLUS 1000 MG ORAL TABS 2 tabs by mouth three times daily BIOFLAVONOID PRODUCTS 58760780291 Active David Marcelino MD Active TOPROL XL 50 MG ORAL [id number] 1 tab by mouth three times daily METOPROLOL SUCCINATE 92482659800 Active David Marcelino MD Active SYMBICORT 160-4.5 MCG/ACT AERO 2 puff BID BUDESONIDE-FORMOTEROL FUMARATE 82001615398 Active David Marcelino MD Active REQUIP 4 MG ORAL TABS 2 tabs by mouth daily ROPINIROLE HCL 53098595387 Active David Marcelino MD Active PROVENTIL HFA 108 (90 BASE) MCG/ACT INH AERS 2 inhaltions prn ALBUTEROL SULFATE 03240493921 Active David Marcelino MD Active PROTONIX 40 MG ORAL TBEC 1 po q a.m. PANTOPRAZOLE SODIUM 69404151469 Active David Marcelino MD Active NORVASC 10 MG TAB 1 tablet by mouth daily AMLODIPINE BESYLATE 05079684809 Active David Marcelino MD Active LYRICA 150 MG CAPS 1 tab by mouth 3 times daily PREGABALIN 79878624978 Active David Marcelino MD Active LOSARTAN POTASSIUM 100 MG TABS 1 pill by mouth daily, for blood pressure LOSARTAN POTASSIUM 00274490674 Active David Marcelino MD Active LEVOTHYROXINE SODIUM 125 MCG TABS 1 qDay LEVOTHYROXINE SODIUM 69724051761 Active David Marcelino MD Active LASIX 40 MG TAB 1 tablet by mouth daily FUROSEMIDE 46511591641 Active David Marcelino MD Active KLOR-CON M10 10 MEQ TBCR 1 tablet by mouth daily POTASSIUM CHLORIDE GI CR 55357996004 Active David Marcelino MD Active KLONOPIN 1 MG TAB 1 tab by mouth daily CLONAZEPAM 68418781376 Active David Marcelino MD Active VERAMYST 27.5 MCG/SPRAY NASAL SUSP 1 spray in nostril as needed FLUTICASONE FUROATE 15587151442 Active David Marcelino MD Active FERROUS SULFATE 325 (65 FE) MG TABS 1 tablet by mouth daily FERROUS SULFATE 20508195232 Active David Marcelino MD Active CYMBALTA 60 MG CPEP 1 cap by mouth daily DULOXETINE HCL 03418875273 Active David Marcelino MD Active CETIRIZINE HCL 10 MG ORAL TABS 1 po qd PRN Allergies CETIRIZINE HCL 63938975101 Active David Marcelino MD Active AMITRIPTYLINE HCL 25 MG TAB 1 tab by mouth daily at bedtime AMITRIPTYLINE HCL 69394143813 Active David Marcelino MD Active AMBIEN 5 MG TAB 1 po qHS PRN Insomnia ZOLPIDEM TARTRATE 01040624555 Active David Marcelino MD Active Vital Signs [...] negative Encounters Code Encounter Date Provider Facility CPT-93664 Level 3 Est. Patient 21:05:34 FARMWORKER BULBS David Marcelino MD [facility] CPT-84595 Level 4 New Patient 19:44:00 FARMWORKER BULBS David Marcelino MD [facility] Procedures Code Procedure Name Date Entry Date Standard Description CPT-13164 Postop F/U Visit 15:28:22 FARMWORKER BULBS
--- OUTSIDE RECORDS SUMMARY | 2016-10-05 16:47 | XMS REPORT ---
Author Author ISABEL MAE [facility] eClinicalWorks Address Unknown Phone Unavailable Care Team Providers Care Firefighter Marine Name Role Phone ISABEL MAE CP Unavailable Allergies, Adverse Reactions, Alerts Substance Reaction Event Type N.K.D.A. Info Not Available Non Drug Allergy Problems Problem Type Condition Code Onset Dates Condition Status Assessment Chronic kidney disease, stage IV (severe) N18.4 Active Assessment Fibromyalgia M79.7 Active Assessment Mixed stress and urge urinary incontinence N39.46 Active Assessment Dysuria R30.0 Active Problem Dysthymic 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 Active Problem [...] R10.13 Active Problem Coronary artery disease involving [place] coronary artery of [place] heart, angina presence unspecified I25.10 Active Problem Chronic kidney disease, stage 4 (severe) N18.4 Active Problem Hypothyroid E03.9 Active Problem Hypertension I10 Active Problem Bowel habit changes R19.4 Active Problem Urinary problem R39.89 Active Problem History of colon polyps Z86.010 Active Problem Functional 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 Active Medications Medication Code System Code Instructions Start Date End Date Status Dosage Toprol XL [facility] [address]-49 50 MG TAKE ONE TABLET BY MOUTH THREE TIMES DAILY Vitamin D (Ergocalciferol) [facility] [address]-95 18051 UNIT Orally once monthly 1 capsule Lyrica [facility] [address]-34 150 MG Orally 3 times a day 1 capsule Cymbalta [facility] 07128184248 60 MG Orally Once a day 1 capsule Vitamin C Gummie [facility] [address]79[address]390 120 MG Orally not defined Fiber Complete [facility] [address] - Orally not defined Nystatin [facility] [address]-96 842463 UNIT/GM Externally Twice a day 1 application to affected area Nystatin [facility] [address]-69 225273 UNIT/ML Mouth/Throat Four times a day 4 ml Gemfibrozil [facility] [address]-92 600 MG Orally 3 times a day 1 tablet Amitriptyline HCl [facility] [address]-97 25 MG Orally Once a day Feb 22, 2016 1 tablet Fluticasone Propionate [facility] 69537431631 50 MCG/ACT USE ONE SPRAY IN EACH NOSTRIL TWICE DAILY Cipro [facility] [address]-90 250 MG Orally every 12 hrs Feb 22, 2016 Feb 27, 2016 1 tablet Potassium Chloride ER [facility] 99518387484 10 MEQ Orally Once a day Apr 21, 2016 1 capsule with food Losartan Potassium [facility] 77974859100 100 MG TAKE ONE TABLET BY MOUTH DAILY Cetirizine HCl [facility] [address]-33 10 MG Orally Once a day 1 tablet Synthroid [facility] [address]-62 125 mcg Orally Once a day 1 tablet Requip [facility] 62967640574 4 MG Orally do not fill in er Once a day 2 tablets 1 to 3 hours before bedtime Clonazepam [facility] [address]-47 1 MG Orally Twice a day 1 tablet Protonix [facility] [address]-73 40 MG TAKE ONE TABLET BY MOUTH ONCE DAILY Furosemide [facility] [address]-17 40 mg Orally Once a day 1 tablet Fish Oil [facility] [address]-47 1000 MG Orally Once a day 1 capsule Voltaren [facility] [address]-60 1 % Transdermal to knee BID. Max dose 4 grams Feb 08, 2016 2 grams Ferrous Sulfate [facility] [address]-57 325 (65 Fe) MG Orally Once a day 1 tablet Norvasc [facility] [address]-02 10 Orally Once a day 1 tablet Procedures Procedure Coding System Code Date [facility] NOBLL Feb 22, 2016 Office Visit, Est Pt., Level 4 CPT-4 19844 Feb 22, 2016 URINALYSIS, AUTO, W/O SCOPE CPT-4 55412 Feb 22, 2016 Vital Signs Date/Time: Feb 22, 2016 Cardiac Monitoring Heart Rate 80 bpm Weight 240 lbs Height 63 in BMI 42.51 Index Blood Pressure Diastolic 60 mmHg Blood Pressure Systolic 92 mmHg Results Name Result Date Reference Range Unit Abnormality Flag UA LONG DIP (IN HOUSE) ----NATO trace 20160222 ----NIT negative 20160222 ----SG 1.025 20160222 ----KET 1+ 20160222 ----TAMIKO 1+ 20160222 ----GLU negative 20160222 ----Odor none 20160222 ----pH 6.0 20160222 ----BLO negative 20160222 ----URO 0.2 20160222 ----Protein 1+ 20160222 ----Lot # [id number] ----Exp date 20160222 ----Clarity clear 20160222 ----Color librado [id number] Summary Purpose eClinicalWorks Submission
--- OUTSIDE RECORDS SUMMARY | 2016-10-05 16:47 | XMS REPORT ---
Author Author ISABEL MAE Organization [employer] Address Unknown Phone Unavailable Care Team Providers Care Global Consumer Sector Vice President Name Role Phone ISABEL MAE CP Unavailable Allergies No Known Allergies Problems Problem Type Condition Code Onset Dates Condition Status Problem Generalized anxiety disorder F41.1 Active Problem Depressed F32.9 Active Problem Restless leg G25.81 Active Problem Dysthymic 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 Active Problem Coronary artery disease involving [place] coronary artery of [place] heart, angina presence unspecified I25.10 Active Problem Hypertension I10 Active Problem Chronic kidney disease, stage 4 (severe) N18.4 Active Problem Palpitations R00.2 Active Problem Asthma J45.909 Active Problem Hypothyroid E03.9 Active Problem Insomnia G47.00 Active Medications No Known Medications Results No Known Results Summary Purpose eClinicalWorks Submission
--- OUTSIDE RECORDS SUMMARY | 2016-10-05 16:47 | XMS REPORT ---
Author Author ISABEL MAE Organization [employer] Address Unknown Phone Unavailable Care Team Providers Care Varnish Dipper Name Role Phone ISABEL MAE CP Unavailable Allergies No Known Allergies Problems Problem Type Condition Code Onset Dates Condition Status Problem Generalized anxiety disorder F41.1 Active Problem Depressed F32.9 Active Problem Restless leg G25.81 Active Problem Dysthymic 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 Active Problem Coronary artery disease involving [place] coronary artery of [place] heart, angina presence unspecified I25.10 Active Problem Hypertension I10 Active Problem Chronic kidney disease, stage 4 (severe) N18.4 Active Problem Palpitations R00.2 Active Problem Asthma J45.909 Active Problem Hypothyroid E03.9 Active Problem Insomnia G47.00 Active Medications No Known Medications Results No Known Results Summary Purpose eClinicalWorks Submission
--- OUTSIDE RECORDS SUMMARY | 2016-10-05 16:47 | XMS REPORT ---
Author Author ISABEL MAE Organization [facility] Address [address] [place] [address] Care Team Providers Care Furniture Finisher Name Role Phone CHARLYAmy ISABEL Unavailable PROBLEMS Type Condition ICD9-CM Code PDS21-NO Code Onset Dates Condition Status SNOMED Code Problem Urinary problem R39.89 Active 206568500 Problem History of anemia Z86.2 Active 422478217 Problem Acute non-recurrent maxillary sinusitis J01.00 Active 57679374 Problem Dyspepsia R10.13 Active 683409569 Problem Restless leg G25.81 Active 97145863 Problem Yeast dermatitis B37.2 Active 10186911 Problem Generalized anxiety disorder F41.1 Active 06366945 Problem Dysthymic 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 Active 73633799 Problem Asthma with acute exacerbation in adult J45.901 Active 626257454 Problem Dysuria R30.0 Active 02602902 Problem Hypokalemia E87.6 Active 56459167 Problem Other seasonal allergic rhinitis J30.2 Active 820572669 Problem Palpitations R00.2 Active 30750863 Problem Insomnia G47.00 Active 059708232 Problem Depressed F32.9 Active 58561461 Problem Asthma J45.909 Active 217658512 Problem Chronic kidney disease, stage 4 (severe) N18.4 Active 399658060 Problem History of colon polyps Z86.010 Active 143037487 Problem Hypothyroid E03.9 Active 31157272 Problem Functional 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 Active 54652894 Problem Coronary artery disease involving [place] coronary artery of [place] heart, angina presence unspecified I25.10 Active 2374773148025 Problem Bowel habit changes R19.4 Active 78474987 ALLERGIES Unknown Allergies SOCIAL HISTORY No smoking Hx information available PLAN OF CARE VITAL SIGNS MEDICATIONS Medication Instructions Dosage Frequency Start Date End Date Duration Status Cyclobenzaprine HCl 10 mg Orally Once a day at hs prn 1 tablet Dec, Active RESULTS No Results PROCEDURES No Known procedures IMMUNIZATIONS No Known Immunizations
--- OUTSIDE RECORDS SUMMARY | 2016-10-05 16:48 | XMS REPORT ---
Author Author ISABEL MAE Organization [employer] Address Unknown Phone Unavailable Care Team Providers Care Hammer Fitter Name Role Phone ISABEL MAE CP Unavailable Allergies No Known Allergies Problems Problem Type Condition Code Onset Dates Condition Status Assessment Vitamin D deficiency, unspecified E55.9 Active Problem Bowel habit changes R19.4 Active Problem Dysthymic 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 Active Problem Urinary problem R39.89 Active Problem Generalized anxiety disorder F41.1 Active Problem Acute non-recurrent maxillary sinusitis J01.00 Active Problem Dysuria R30.0 Active Problem History of anemia Z86.2 Active Problem Vitamin D deficiency, unspecified E55.9 Active Problem Dyspepsia R10.13 Active Problem Asthma J45.909 Active Problem Depressed F32.9 Active Problem Chronic kidney disease, stage IV (severe) N18.4 Active Problem Restless leg G25.81 Active Problem Other seasonal allergic rhinitis J30.2 Active Problem Asthma with acute exacerbation in adult J45.901 Active Problem Yeast dermatitis B37.2 Active Problem Hypokalemia E87.6 Active Problem Hypothyroid E03.9 Active Problem Hypertension I10 Active Problem Palpitations R00.2 Active Problem Insomnia G47.00 Active Problem History of colon polyps Z86.010 Active Problem Functional 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 Active Problem Coronary artery disease involving [place] coronary artery of [place] heart, angina presence unspecified I25.10 Active Problem Chronic kidney disease, stage 4 (severe) N18.4 Active Medications Medication Code System Code Instructions Start Date End Date Status Dosage Vitamin D (Ergocalciferol) [facility] [place] [address]-36 92484 UNIT Orally once monthly 1 capsule Results No Known Results Summary Purpose eClinicalWorks Submission
--- OUTSIDE RECORDS SUMMARY | 2016-10-05 16:48 | XMS REPORT ---
Author Author CAMERON MACK Organization [employer] Address Unknown Phone Unavailable Care Team Providers Care Rope Tier Name Role Phone CAMERON MACK CP Unavailable Allergies No Known Allergies Problems Problem Type Condition Code Onset Dates Condition Status Problem Generalized anxiety disorder F41.1 Active Problem Depressed F32.9 Active Problem Restless leg G25.81 Active Problem Coronary artery disease involving [place] coronary artery of [place] heart, angina presence unspecified I25.10 Active Problem Hypertension I10 Active Problem Chronic kidney disease, stage 4 (severe) N18.4 Active Problem Palpitations R00.2 Active Problem Asthma J45.909 Active Problem Hypothyroid E03.9 Active Problem Insomnia G47.00 Active Assessment Insomnia G47.00 Active Assessment Dysthymic 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 Active Assessment Generalized anxiety disorder F41.1 Active Problem Dysthymic 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 Active Medications No Known Medications Procedures Procedure Coding System Code Date Psychotherapy, patient &/family, 30 minutes, established patient CPT-4 77835 Mar 30, 2015 Results No Known Results Summary Purpose eClinicalWorks Submission
--- OUTSIDE RECORDS SUMMARY | 2016-10-05 16:48 | XMS REPORT ---
Author Author ISABEL MAE Organization [employer] Address Unknown Phone Unavailable Care Team Providers Care Behaviorist Name Role Phone ISABEL MAE CP Unavailable [...] I10 Active Problem Coronary artery disease involving [place] coronary artery of [place] heart, angina presence unspecified I25.10 Active Medications No Known Medications Results No Known Results Summary Purpose eClinicalWorks Submission
--- OUTSIDE RECORDS SUMMARY | 2016-10-05 16:48 | XMS REPORT ---
Author Author CAMERON MACK Organization [employer] Address Unknown Phone Unavailable Care Team Providers Care Cad Designer Drafter Name Role Phone CAMERON MACK CP Unavailable Allergies No Known Allergies Problems Problem Type Condition Code Onset Dates Condition Status Problem Generalized anxiety disorder F41.1 Active Problem Depressed F32.9 Active Problem Restless leg G25.81 Active Problem Coronary artery disease involving [place] coronary artery of [place] heart, angina presence unspecified I25.10 Active Problem [...] patient &/family, 30 minutes, established patient CPT-4 43620 Apr 13, 2015 Results No Known Results Summary Purpose eClinicalWorks Submission
--- OUTSIDE RECORDS SUMMARY | 2016-10-05 16:48 | XMS REPORT | Clinical Summary ---
Author Author Admin, MONICA Organization [facility] Address Unknown Phone Unavailable Allergies, [...] as needed for muscle spasm/pain CYCLOBENZAPRINE HCL 76767178358 Active David Marcelino MD Active EQ FIBER THERAPY 0.52 GM ORAL CAPS 1 cap by mouth three times daily PSYLLIUM 73364722193 Active David Marcelino MD Active FISH OIL CONCENTRATE 1000 MG ORAL CAPS 3 caps by mouth daily OMEGA-3 FATTY ACIDS 64669182165 Active David Marcelino MD Active VITAMIN D3 54180 UNIT ORAL TABS 1 cap by mouth monthly CHOLECALCIFEROL 55883416679 Active David Marcelino MD Active VITAMIN C PLUS 1000 MG ORAL TABS 2 tabs by mouth three times daily BIOFLAVONOID PRODUCTS 05971690584 Active David Marcelino MD Active TOPROL XL 50 MG ORAL [id number] 1 tab by mouth three times daily METOPROLOL SUCCINATE 62320568601 Active David Marcelino MD Active SYMBICORT 160-4.5 MCG/ACT AERO 2 puff BID BUDESONIDE-FORMOTEROL FUMARATE 22832723444 Active David Marcelino MD Active REQUIP 4 MG ORAL TABS 2 tabs by mouth daily ROPINIROLE HCL 26264234460 Active David Marcelino MD Active PROVENTIL HFA 108 (90 BASE) MCG/ACT INH AERS 2 inhaltions prn ALBUTEROL SULFATE 12493553977 Active David Marcelino MD Active PROTONIX 40 MG ORAL TBEC 1 po q a.m. PANTOPRAZOLE SODIUM 15918764152 Active David Marcelino MD Active NORVASC 10 MG TAB 1 tablet by mouth daily AMLODIPINE BESYLATE 31498033333 Active David Marcelino MD Active LYRICA 150 MG CAPS 1 tab by mouth 3 times daily PREGABALIN 79319954944 Active David Marcelino MD Active LOSARTAN POTASSIUM 100 MG TABS 1 pill by mouth daily, for blood pressure LOSARTAN POTASSIUM 74123109556 Active David Marcelino MD Active LEVOTHYROXINE SODIUM 125 MCG TABS 1 qDay LEVOTHYROXINE SODIUM 60287590971 Active David Marcelino MD Active LASIX 40 MG TAB 1 tablet by mouth daily FUROSEMIDE 81354603286 Active David Marcelino MD Active KLOR-CON M10 10 MEQ TBCR 1 tablet by mouth daily POTASSIUM CHLORIDE GI CR 09750934135 Active David Marcelino MD Active KLONOPIN 1 MG TAB 1 tab by mouth daily CLONAZEPAM 62151863859 Active David Marcelino MD Active VERAMYST 27.5 MCG/SPRAY NASAL SUSP 1 spray in nostril as needed FLUTICASONE FUROATE 41312760731 Active David Marcelino MD Active FERROUS SULFATE 325 (65 FE) MG TABS 1 tablet by mouth daily FERROUS SULFATE 29140713470 Active David Marcelino MD Active CYMBALTA 60 MG CPEP 1 cap by mouth daily DULOXETINE HCL 05991642347 Active David Marcelino MD Active CETIRIZINE HCL 10 MG ORAL TABS 1 po qd PRN Allergies CETIRIZINE HCL 31033634715 Active David Marcelino MD Active AMITRIPTYLINE HCL 25 MG TAB 1 tab by mouth daily at bedtime AMITRIPTYLINE HCL 25101266365 Active David Marcelino MD Active AMBIEN 5 MG TAB 1 po qHS PRN Insomnia ZOLPIDEM TARTRATE 97193980142 Active David Marcelino MD Active Vital Signs [...] negative Encounters Code Encounter Date Provider Facility CPT-27689 Level 3 Est. Patient 21:05:34 PRODUCTION ASSOCIATE David Marcelino MD [facility] CPT-62116 Level 4 New Patient 19:44:00 PRODUCTION ASSOCIATE David Marcelino MD [facility] Procedures Code Procedure Name Date Entry Date Standard Description CPT-86004 Postop F/U Visit 15:28:22 PRODUCTION ASSOCIATE
--- OUTSIDE RECORDS SUMMARY | 2016-10-05 16:49 | XMS REPORT ---
Author Author ISABEL MAE Organization [employer] Address Unknown Phone Unavailable Care Team Providers Care Manager Switch Name Role Phone ISABEL MAE CP Unavailable [...] R00.2 Active Problem Coronary artery disease involving [place] coronary artery of [place] heart, angina presence unspecified I25.10 Active Medications Medication Code System Code Instructions Start Date End Date Status Dosage Fluticasone Propionate [facility] 26253556918 50 MCG/ACT USE ONE SPRAY IN EACH NOSTRIL TWICE DAILY Results No Known Results Summary Purpose eClinicalWorks Submission
--- OUTSIDE RECORDS SUMMARY | 2016-10-05 16:49 | XMS REPORT ---
Author Author ZABRINA MEDINA [facility] [place] eClinicalWorks Address Unknown Phone Unavailable Care Team Providers Care Hospital Medical Biller Name Role Phone ZABRINA MEDINA CP Unavailable Allergies, Adverse Reactions, Alerts Substance Reaction Event Type N.K.D.A. Info Not Available Non Drug Allergy Problems Problem Type Condition Code Onset Dates Condition Status Problem Generalized anxiety disorder F41.1 Active Problem Depressed F32.9 Active Problem Restless leg G25.81 Active Problem Coronary artery disease involving circle coronary artery of circle heart, angina presence unspecified I25.10 Active Problem Hypertension I10 Active Problem Chronic kidney disease, stage 4 (severe) N18.4 Active Problem Palpitations R00.2 Active Problem Asthma J45.909 Active Problem Hypothyroid E03.9 Active Problem Insomnia G47.00 Active Assessment Sleep disturbance G47.9 Active Assessment Major depression, recurrent F33.9 Active Assessment Generalized anxiety disorder F41.1 Active Problem Dysthymic 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 Active Medications Medication Code System Code Instructions Start Date End Date Status Dosage Protonix [facility] [address]-40 40 MG TAKE ONE TABLET BY MOUTH DAILY Amitriptyline HCl [facility] [address]-81 150 MG Orally Once a day 1 tablet at bedtime Zofran [facility] [address]-91 8 MG Orally q 8 hours prn Mar 30, 2015 1 tablet Potassium Chloride ER [facility] 08152788759 10 MEQ TAKE ONE CAPSULE BY MOUTH DAILY Vitamin C Gummie [facility] 106[address]70 120 MG Orally not defined Acidophilus [facility] [address]-05 Orally not defined Iron [facility] [address]47[address]60 325 (65 Fe) MG Orally 3 times a day 1 tablet Requip [facility] [address]-37 4 MG Orally do not fill in er Once a day 2 tablets 1 to 3 hours before bedtime Cymbalta [facility] [address]-66 60 MG Orally Once a day May 03, 2015 1 capsule Klonopin [facility] [address]-25 1 MG Orally Twice a day May 03, 2015 1/2 tablet Lidoderm [facility] [address]-28 5 %(700 mg/patch) Jan 17, 2013 1 PATCH by Topical route 1 time per day (remove patch(s) after 12 hours) [place] 3 [facility] [address]27 1000 MG Orally Once a day 1 capsule Lyrica [facility] [address]-29 150 MG Orally 3 times a day 1 capsule Furosemide [facility] [address]-43 40 MG Orally every other day 1 tablet Lipitor [facility] [address]-41 20 MG Orally Once a day 1 tablet Norvasc [facility] [address]-82 10 Orally Once a day 1 tablet Multivitamin Gummies Adult [facility] [address]84 Orally not defined Losartan Potassium [facility] 51932365287 100 MG TAKE ONE TABLET BY MOUTH DAILY Cholecalciferol [facility] [address] 13754 UNIT Orally every month 1 capsule Niacin [facility] [address]-27 500 MG Orally Once a day 1 capsule Synthroid [facility] [address]-11 125 MCG Orally Once a day 1 tablet Toprol XL [facility] [address]-10 50 MG Orally 3 times a day 1 tablet Symbicort [facility] [address]-12 160-4.5 MCG/ACT Inhalation Twice a day 2 puffs Cetirizine HCl [facility] [address]-16 10 MG Orally Once a day 1 tablet Ambien [facility] [address]-55 5 MG Orally Once a day May 03, 2015 1 tablet at bedtime Procedures Procedure Coding System Code Date Psych diagnostic evaluation w/medical services, new patient CPT-4 44094 May 03, 2015 Vital Signs Date/Time: May 03, 2015 Blood Pressure Systolic 148 mmHg Weight 252 lbs Height 63 in BMI 44.63 Index Blood Pressure Diastolic 80 mmHg Results No Known Results Summary Purpose eClinicalWorks Submission
--- OUTSIDE RECORDS SUMMARY | 2016-10-05 16:49 | XMS REPORT ---
Author Author ISABEL MAE [facility] eClinicalWorks Address Unknown Phone Unavailable Care Team Providers Care Back Padder Name Role Phone ISABEL MAE CP Unavailable Allergies, Adverse Reactions, Alerts Substance Reaction Event Type N.K.D.A. Info Not Available Non Drug Allergy Problems Problem Type Condition Code Onset Dates Condition Status Problem Generalized anxiety disorder F41.1 Active Problem Depressed F32.9 Active Problem Restless leg G25.81 Active Problem Coronary artery disease involving [place] coronary artery of [place] heart, angina presence unspecified I25.10 Active Problem Hypertension I10 Active Problem Chronic kidney disease, stage 4 (severe) N18.4 Active Problem Palpitations R00.2 Active Problem Asthma J45.909 Active Problem Hypothyroid E03.9 Active Problem Insomnia G47.00 Active Assessment Dysthymic 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 Active Assessment Hypothyroid E03.9 Active Assessment Nausea & vomiting R11.2 Active Assessment Hypertension I10 Active Assessment Chronic kidney disease, stage 4 (severe) N18.4 Active Problem Dysthymic 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 Active Medications Medication Code System Code Instructions Start Date End Date Status Dosage Losartan Potassium [facility] 61994292727 100 MG TAKE ONE TABLET BY MOUTH DAILY Lipitor [facility] [address]-74 20 MG Orally Once a day 1 tablet Effexor XR [facility] [address]-94 150 MG Orally Once a day 1 capsule with food Potassium Chloride ER [facility] 65259350557 10 MEQ TAKE ONE CAPSULE BY MOUTH DAILY Cetirizine HCl [facility] [address]-50 10 MG Orally Once a day 1 tablet Vitamin C Gummie [facility] 90[address]-92975 120 MG Orally not defined Lyrica [facility] [address]-44 150 MG Orally 3 times a day 1 capsule Protonix [facility] [address]-14 40 MG TAKE ONE TABLET BY MOUTH DAILY Toprol XL [facility] [address]-57 100 MG Orally 3 times a day 1 tablet Iron [facility] 82294-31062 325 (65 Fe) MG Orally 3 times a day 1 tablet Niacin [facility] [address]-84 500 MG Orally Once a day 1 capsule Norvasc [facility] [address]-80 10 Orally Once a day 1 tablet BusPIRone HCl [facility] [address]-11 7.5 MG Orally Twice a day prn Feb 04, 2015 1 tablet Cholecalciferol [facility] 83187-[address] 13900 UNIT Orally every month 1 capsule Seroquel [facility] [address]-90 100 MG Orally Once a day- 2 tablet at bedtime Requip [facility] [address]-88 4 MG Orally do not fill in er Once a day 2 tablets 1 to 3 hours before bedtime Zofran [facility] [address]-66 8 MG Orally q 8 hours prn Mar 30, 2015 1 tablet Symbicort [facility] [address]-52 160-4.5 MCG/ACT Inhalation Twice a day 2 puffs Lidoderm [facility] [address]-80 5 %(700 mg/patch) Jan 17, 2013 1 PATCH by Topical route 1 time per day (remove patch(s) after 12 hours) Amitriptyline HCl [facility] [address]-61 150 MG Orally Once a day 1 tablet at bedtime Multivitamin Gummies Adult [facility] 227[address] Orally not defined Furosemide [facility] [address]-85 40 MG Orally every other day 1 tablet [place] 3 [facility] 65558-18095 1000 MG Orally Once a day 1 capsule Synthroid [facility] [address]-09 125 MCG Orally Once a day 1 tablet Procedures Procedure Coding System Code Date COMPREHEN METABOLIC PANEL CPT-4 52964 Mar 30, 2015 COMPLETE CBC W/AUTO DIFF WBC CPT-4 27342 Mar 30, 2015 ASSAY THYROID STIM HORMONE CPT-4 83514 Mar 30, 2015 Office Visit, Est Pt., Level 4 CPT-4 14568 Mar 30, 2015 VENIPUNCT, ROUTINE* CPT-4 23141 Mar 30, 2015 Vital Signs Date/Time: Mar 30, 2015 Temperature 99.2 F Weight 259.9 lbs Height 63 in BMI 46.03 Index Blood Pressure Diastolic 100 mmHg Blood Pressure Systolic 166 mmHg Cardiac Monitoring Heart Rate 100 bpm Results Name Result Date Reference Range Unit Abnormality Flag ROUTINE VENIPUNCTURE Summary Purpose eClinicalWorks Submission
--- OUTSIDE RECORDS SUMMARY | 2016-10-05 16:49 | XMS REPORT ---
Author Author ISABEL MAE Organization eClinicalWorks Address Unknown Phone Unavailable Care Team Providers Care Driver'S License Examiner Name Role Phone ISABEL MAE CP Unavailable [...] Problem Coronary artery disease involving [place] coronary artery of [place] heart, angina presence unspecified I25.10 Active Medications Medication Code System Code Instructions Start Date End Date Status Dosage Ciprofloxacin HCl [facility] [address]-98 250 MG Orally 2 times a day Nov 29, 2015 Dec 06, 2015 1 tablet Results No Known Results Summary Purpose eClinicalWorks Submission
--- OUTSIDE RECORDS SUMMARY | 2016-10-05 16:49 | XMS REPORT ---
Author Author KEIRA FORD [facility] eClinicalWorks Address Unknown Phone Unavailable Care Team Providers Care Supervisor Printing And Stamping Name Role Phone KEIRA FORD CP Unavailable [...] Coronary atherosclerosis of unspecified type of vessel, [place] or graft 414.00 Active Problem Anxiety state, [...] patient &/family, 45 minutes, established patient CPT-4 77239 Dec 30, 2014 Results No Known Results Summary Purpose eClinicalWorks Submission
--- OUTSIDE RECORDS SUMMARY | 2016-10-05 16:49 | XMS REPORT ---
Author Author ISABEL MAE Organization eClinicalWorks Address Unknown Phone Unavailable Care Team Providers Care Dye Beck Reel Operator Name Role Phone ISABEL MAE CP [...] R00.2 Active Problem Coronary artery disease involving [place] coronary artery of [place] heart, angina presence unspecified I25.10 Active Medications No Known Medications Results No Known Results Summary Purpose eClinicalWorks Submission
--- OUTSIDE RECORDS SUMMARY | 2016-10-05 16:50 | XMS REPORT | Clinical Summary ---
Author Author Admin, NICOLASE Organization [facility] Address Unknown Phone Unavailable Allergies, Adverse [...] mouth daily for overactive bladder SOLIFENACIN SUCCINATE 00845350429 Active David Marcelino MD Active CYCLOBENZAPRINE HCL 10 MG TABS 1 tablet by mouth three times daily as needed for muscle spasm/pain CYCLOBENZAPRINE HCL 89926021444 Active David Marcelino MD Active EQ FIBER THERAPY 0.52 GM ORAL CAPS 1 cap by mouth three times daily PSYLLIUM 57360970243 Active David Marcelino MD Active FISH OIL CONCENTRATE 1000 MG ORAL CAPS 3 caps by mouth daily OMEGA-3 FATTY ACIDS 38480229013 Active David Marcelino MD Active VITAMIN D3 11019 UNIT ORAL TABS 1 cap by mouth monthly CHOLECALCIFEROL 51783765423 Active David Marcelino MD Active VITAMIN C PLUS 1000 MG ORAL TABS 2 tabs by mouth three times daily BIOFLAVONOID PRODUCTS 38823862670 Active David Marcelino MD Active TOPROL XL 50 MG ORAL [id number] 1 tab by mouth three times daily METOPROLOL SUCCINATE 13530658007 Active David Marcelino MD Active SYMBICORT 160-4.5 MCG/ACT AERO 2 puff BID BUDESONIDE-FORMOTEROL FUMARATE 97522709815 Active David Marcelino MD Active REQUIP 4 MG ORAL TABS 2 tabs by mouth daily ROPINIROLE HCL 77414457479 Active David Marcelino MD Active PROVENTIL HFA 108 (90 BASE) MCG/ACT INH AERS 2 inhaltions prn ALBUTEROL SULFATE 39570044403 Active David Marcelino MD Active PROTONIX 40 MG ORAL TBEC 1 po q a.m. PANTOPRAZOLE SODIUM 89750122289 Active David Marcelino MD Active NORVASC 10 MG TAB 1 tablet by mouth daily AMLODIPINE BESYLATE 55996035216 Active David Marcelino MD Active LYRICA 150 MG CAPS 1 tab by mouth 3 times daily PREGABALIN 49754398988 Active David Marcelino MD Active LOSARTAN POTASSIUM 100 MG TABS 1 pill by mouth daily, for blood pressure LOSARTAN POTASSIUM 34421445300 Active David Marcelino MD Active LEVOTHYROXINE SODIUM 125 MCG TABS 1 qDay LEVOTHYROXINE SODIUM 33657546669 Active David Marcelino MD Active LASIX 40 MG TAB 1 tablet by mouth daily FUROSEMIDE 96670277637 Active David Marcelino MD Active KLOR-CON M10 10 MEQ TBCR 1 tablet by mouth daily POTASSIUM CHLORIDE GI CR 93078905318 Active David Marcelino MD Active KLONOPIN 1 MG TAB 1 tab by mouth daily CLONAZEPAM 36166700637 Active David Marcelino MD Active VERAMYST 27.5 MCG/SPRAY NASAL SUSP 1 spray in nostril as needed FLUTICASONE FUROATE 36888726193 Active David Marcelino MD Active FERROUS SULFATE 325 (65 FE) MG TABS 1 tablet by mouth daily FERROUS SULFATE 51569941721 Active David Marcelino MD Active CYMBALTA 60 MG CPEP 1 cap by mouth daily DULOXETINE HCL 63792023645 Active David Marcelino MD Active CETIRIZINE HCL 10 MG ORAL TABS 1 po qd PRN Allergies CETIRIZINE HCL 39801009440 Active David Marcelino MD Active AMITRIPTYLINE HCL 25 MG TAB 1 tab by mouth daily at bedtime AMITRIPTYLINE HCL 88963812256 Active David Marcelino MD Active AMBIEN 5 MG TAB 1 po qHS PRN Insomnia ZOLPIDEM TARTRATE 03553084338 Active David Marcelino MD Active Vital Signs [...] negative Encounters Code Encounter Date Provider Facility CPT-96411 Level 3 Est. Patient 21:05:34 INVESTMENT ANALYST David Marcelino MD [facility] CPT-64825 Level 4 New Patient 19:44:00 INVESTMENT ANALYST David Marcelino MD [facility] Procedures Code Procedure Name Date Entry Date Standard Description CPT-80483 Postop F/U Visit 20:37:06 INVESTMENT ANALYST CPT-80496 Postop F/U Visit 15:28:22 INVESTMENT ANALYST
--- OUTSIDE RECORDS SUMMARY | 2016-10-05 16:50 | XMS REPORT ---
Author Author JORDAN MCDONALD Organization eClinicalWorks Address Unknown Phone Unavailable Care Team Providers Care Digital Community Manager Name Role Phone JORDAN MCDONALD CP Unavailable Allergies No Known Allergies Problems Problem Type Condition Code Onset Dates Condition Status Problem Generalized anxiety disorder F41.1 Active Problem Depressed F32.9 Active Problem Restless leg G25.81 Active Assessment Osteoarthritis of knees, bilateral M17.0 Active Problem Dysthymic 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 Active Problem Coronary artery disease involving [place] coronary artery of [place] heart, angina presence unspecified I25.10 Active Problem Hypertension I10 Active Problem Chronic kidney disease, stage 4 (severe) N18.4 Active Problem Palpitations R00.2 Active Problem Asthma J45.909 Active Problem Hypothyroid E03.9 Active Problem Insomnia G47.00 Active Medications No Known Medications Procedures Procedure Coding System Code Date DEPO MEDROL 80 MG/ML CPT-4 J1040 Apr 01, 2015 Office Visit, Est Pt., Level 3 CPT-4 83269 Apr 01, 2015 DRAIN/INJECT, JOINT/BURSA CPT-4 26844 Apr 01, 2015 Vital Signs Date/Time: Apr 01, 2015 Blood Pressure Diastolic 72 mmHg Blood Pressure Systolic 128 mmHg Height 63 in Results Name Result Date Reference Range Unit Abnormality Flag JOINT INJECTION-LARGE JOINT (specify site) Summary Purpose eClinicalWorks Submission
--- OUTSIDE RECORDS SUMMARY | 2016-10-05 16:50 | XMS REPORT | Clinical Summary ---
Author Author Admin, NICOLASE Organization [facility] Address Unknown Phone Unavailable Allergies, Adverse Reactions, [...] mouth daily for overactive bladder SOLIFENACIN SUCCINATE 72528015814 Active David Marcelino MD Active CYCLOBENZAPRINE HCL 10 MG TABS 1 tablet by mouth three times daily as needed for muscle spasm/pain CYCLOBENZAPRINE HCL 88564495177 Active David Marcelino MD Active EQ FIBER THERAPY 0.52 GM ORAL CAPS 1 cap by mouth three times daily PSYLLIUM 45597255100 Active David Marcelino MD Active FISH OIL CONCENTRATE 1000 MG ORAL CAPS 3 caps by mouth daily OMEGA-3 FATTY ACIDS 31512390891 Active David Marcelino MD Active VITAMIN D3 10186 UNIT ORAL TABS 1 cap by mouth monthly CHOLECALCIFEROL 23898757203 Active David Marcelino MD Active VITAMIN C PLUS 1000 MG ORAL TABS 2 tabs by mouth three times daily BIOFLAVONOID PRODUCTS 27772286771 Active David Marcelino MD Active TOPROL XL 50 MG ORAL [id number] 1 tab by mouth three times daily METOPROLOL SUCCINATE 42081724211 Active David Marcelino MD Active SYMBICORT 160-4.5 MCG/ACT AERO 2 puff BID BUDESONIDE-FORMOTEROL FUMARATE 53346061459 Active David Marcelino MD Active REQUIP 4 MG ORAL TABS 2 tabs by mouth daily ROPINIROLE HCL 10239555586 Active David Marcelino MD Active PROVENTIL HFA 108 (90 BASE) MCG/ACT INH AERS 2 inhaltions prn ALBUTEROL SULFATE 41883762270 Active David Marcelino MD Active PROTONIX 40 MG ORAL TBEC 1 po q a.m. PANTOPRAZOLE SODIUM 82792053553 Active David Marcelino MD Active NORVASC 10 MG TAB 1 tablet by mouth daily AMLODIPINE BESYLATE 46725797564 Active David Marcelino MD Active LYRICA 150 MG CAPS 1 tab by mouth 3 times daily PREGABALIN 02598394361 Active David Marcelino MD Active LOSARTAN POTASSIUM 100 MG TABS 1 pill by mouth daily, for blood pressure LOSARTAN POTASSIUM 63711336010 Active David Marcelino MD Active LEVOTHYROXINE SODIUM 125 MCG TABS 1 qDay LEVOTHYROXINE SODIUM 29976202630 Active David Marcelino MD Active LASIX 40 MG TAB 1 tablet by mouth daily FUROSEMIDE 42116803337 Active David Marcelino MD Active KLOR-CON M10 10 MEQ TBCR 1 tablet by mouth daily POTASSIUM CHLORIDE GI CR 53293994828 Active David Marcelino MD Active KLONOPIN 1 MG TAB 1 tab by mouth daily CLONAZEPAM 68246760511 Active David Marcelino MD Active VERAMYST 27.5 MCG/SPRAY NASAL SUSP 1 spray in nostril as needed FLUTICASONE FUROATE 93469413336 Active David Marcelino MD Active FERROUS SULFATE 325 (65 FE) MG TABS 1 tablet by mouth daily FERROUS SULFATE 39310596887 Active David Marcelino MD Active CYMBALTA 60 MG CPEP 1 cap by mouth daily DULOXETINE HCL 66361853979 Active David Marcelino MD Active CETIRIZINE HCL 10 MG ORAL TABS 1 po qd PRN Allergies CETIRIZINE HCL 79633990689 Active David Marcelino MD Active AMITRIPTYLINE HCL 25 MG TAB 1 tab by mouth daily at bedtime AMITRIPTYLINE HCL 77202644025 Active David Marcelino MD Active AMBIEN 5 MG TAB 1 po qHS PRN Insomnia ZOLPIDEM TARTRATE 38653407039 Active David Marcelino MD Active Vital Signs [...] negative Encounters Code Encounter Date Provider Facility CPT-89360 Level 3 Est. Patient 21:05:34 SOFTWARE DEVELOPMENT PROJECT MANAGER David Marcelino MD [facility] CPT-50130 Level 4 New Patient 19:44:00 SOFTWARE DEVELOPMENT PROJECT MANAGER David Marcelino MD [facility] Procedures Code Procedure Name Date Entry Date Standard Description CPT-85025 Postop F/U Visit 20:37:06 SOFTWARE DEVELOPMENT PROJECT MANAGER CPT-44984 Postop F/U Visit 15:28:22 SOFTWARE DEVELOPMENT PROJECT MANAGER
== END 2016-10-03 20:13 | disposition home or self-care (01) ==
LOC: EDUNIT# 17:17 → ER 17:20
DX: R51 Headache (principal); R11.0 Nausea; I12.9 Hypertensive chronic kidney disease with stage 1 through stage 4 chronic kidney disease, or unspecified chronic kidney disease; N18.9 Chronic kidney disease, unspecified; J45.909 Unspecified asthma, uncomplicated; E78.00 Pure hypercholesterolemia, unspecified; E03.9 Hypothyroidism, unspecified; F41.9 Anxiety disorder, unspecified; F32.9 Major depressive disorder, single episode, unspecified
CPT/HCPCS: 36415; 80053; 81000; 83735; 84439; 84443; 85025

== ENCOUNTER → 2016-10-13 | Outpatient (CLI) | payer MEDICAID ==
[~2016-10-13] MED LIST changes: +ONDA4TAB8 SL
--- NOTE | 2016-10-16 10:03 | Diagnostic Imaging Report ---
EXAMINATION: Bilateral screening mammogram with a Computer Aided Detection (CAD) system. INDICATION: Screening. PERSONAL HISTORY: No current complaints stated on the questionnaire. COMPARISON: 09/23/2015. FINDINGS: The breasts are composed of scattered fibroglandular densities. Allowing for technique and positional differences, no suspicious change is seen. IMPRESSION: No significant change. ACR BI-RADS Category 2: Benign findings. Result letter will be mailed to the patient. Note: At least 10% of breast cancer is not imaged by mammography. Dictated by: Dictated on workstation # [id number]
== END ==
LOC: RAD 14:25
PROVIDERS: ATTEND Nurse Practitioner Family
DX: Z12.31 Encounter for screening mammogram for malignant neoplasm of breast (principal)
CPT/HCPCS: 77067

== ENCOUNTER 2016-12-12 18:49 | Inpatient (IN) | payer MEDICAID ==
[~2016-12-12] VITALS: Ht 160 cm; Wt 117.0 kg
[~2016-12-12 18:49] MED LIST changes: -[UNRECOGNIZED DRUG - CODE] PC; +[UNRECOGNIZED DRUG - CODE] PO
[2016-12-12] MEDS ORDERED: NS IV 1000 ML 1,000 ML IV ONE ×2 (19:08→22:05)
[2016-12-12 19:19] LABS: BILIRUBIN,URINE NEGATIVE (NEGATIVE); KETONES,URINE NEGATIVE (NEGATIVE); LEUKOCYTE ESTERASE ,URINE 2+ (NEGATIVE); NITRITE,URINE NEGATIVE (NEGATIVE); PH,URINE 7 (5-9); PROTEIN,URINE 2+ (NEGATIVE); UROBILINOGEN,URINE NORMAL (NORMAL)
[2016-12-12] MEDS ORDERED: ACETAMINOPHEN 500 MG TAB (TYLENOL) PO STA (19:26)
[2016-12-12] MEDS ORDERED: ONDANSETRON 4 MG/2 ML (SDV) Z0FRAN IVP ONE (19:30)
[2016-12-12 19:31] LABS: BASOPHILS # (AUTO) 0.1 10^3/uL (0.0-0.1); BASOPHILS % (AUTO) 0 % (0-10); EOSINOPHILS % (AUTO) 0 % (0-10); LYMPHOCYTES # (AUTO) 0.9 X 10^3 (1.0-4.0); LYMPHOCYTES % (AUTO) 7 % (12-44); MEAN CORPUSCULAR HEMOGLOBIN 29 PG (25-34); MEAN CORPUSCULAR HGB CONC 32 G/DL (32-36); MEAN CORPUSCULAR VOLUME 90 FL (80-99); MEAN PLATELET VOLUME 9.8 FL (7.4-10.4); MONOCYTES % (AUTO) 7 % (0-12); NEUTROPHILS # (AUTO) 11.4 X 10^3 (1.8-7.8); NEUTROPHILS % (AUTO) 86 % (42-75); PLATELET COUNT 217 10^3/uL (130-400); RED BLOOD COUNT 3.92 10^6/uL (4.35-5.85); RED CELL DISTRIBUTION WIDTH 13.5 % (10.0-14.5); WHITE BLOOD COUNT 13.3 10^3/uL (4.3-11.0)
--- NOTE | 2016-12-12 19:37 | Diagnostic Imaging Report ---
INDICATION: Wheezing 1928 hrs. Comparison is made to study of 03/31/2015. Overall heart size and pulmonary vascularity are within normal limits. There is no pneumothorax or consolidation. There is elevation of the right hemidiaphragm. No pneumothorax is seen. IMPRESSION: Continued elevation of the right hemidiaphragm without acute abnormality or adverse change detected. Dictated by: Dictated on workstation # [id number]
[2016-12-12 19:44] LABS: INR 1.1 (0.8-1.4); PROTHROMBIN TIME PATIENT 13.9 SEC (12.2-14.7)
[2016-12-12 19:46] LABS: BAND NEUTROPHILS 3 %; BASOPHILS % (MANUAL) 0 %; EOSINOPHILS % (MANUAL) 0 %; LYMPHOCYTES % (MANUAL) 7 %; NEUTROPHILS % (MANUAL) 89 %
[2016-12-12 19:54] LABS: CALCIUM 9.4 MG/DL (8.5-10.1); CREATININE SERUM 1.43 MG/DL (0.60-1.30); POTASSIUM 3.8 MMOL/L (3.6-5.0)
[2016-12-12 19:55] LABS: ALBUMIN 4.3 GM/DL (3.2-4.5); BILIRUBIN,TOTAL 0.4 MG/DL (0.1-1.0); TOTAL PROTEIN 7.3 GM/DL (6.4-8.2)
--- NOTE | 2016-12-12 20:16 | ED General ---
General Chief Complaint: Fever-Adult/Adol Stated Complaint: FEVER,STOMACH PAIN,HEADACHE Source of Information: Patient Exam Limitations: No Limitations History of Present Illness Time Seen by Provider: 19:30 Initial Comments Here with report of fever, nausea, vomiting, body aches, back pain and neck pain has been going on for the last 18 hours. Started last night with the fever and vomiting. She thought she may have ate something bad but then noticed that she had the fever. The progressed to the backache and neck pain as well as headache. Went to the clinic today and was sent here for further workup related to sepsis concerns. Apparently a UA and influenza screen at the clinic was negative. Timing/Duration: 12-24 Hours Severity: Moderate Associated Systoms: No Cough, Fever/Chills, Headaches, Nausea/Vomiting, No Shortness of Air, No Weakness Allergies and Home Medications Allergies Coded Allergies: No Known Drug Allergies (Unverified , 09/29/15) Home Medications Albuterol Sulfate 6.7 Gm Hfa.aer.ad, 2 PUFF IH Q4H PRN for SHORTNESS OF BREATH, (Reported) Amitriptyline HCl 150 Mg Tablet, 150 MG PO HS, (Reported) Amlodipine Besylate 10 Mg Tablet, 10 MG PO DAILY, (Reported) Budesonide/Formoterol Fumarate 10.2 Gm Hfa.aer.ad, 2 PUFF IH BID, (Reported) Cetirizine HCl 10 Mg Tablet, 10 MG PO DAILY, (Reported) Clonazepam 1 Mg Tablet, 1 MG PO BID, (Reported) Duloxetine HCl 60 Mg Capsule.dr, 60 MG PO DAILY, (Reported) Ergocalciferol (Vitamin D2) 50,000 Unit Capsule, 50,000 UNIT PO ONCE A MONTH, ( Reported) Ferrous Sulfate 325 Mg Tablet, 650 MG PO TID, (Reported) TAKES 2 (325MG) TABLETS Fluticasone Propionate 16 Gm [place], 2 SPRAY NS DAILY PRN for ALLERGIES, ( Reported) Furosemide 40 Mg Tablet, 40 MG PO DAILY, (Reported) Levothyroxine Sodium 125 Mcg Tablet, 125 MCG PO DAILY, (Reported) Losartan Potassium 100 Mg Tablet, 100 MG PO DAILY, (Reported) Metoprolol Succinate 50 Mg Tab.er.24h, 50 MG PO TID, (Reported) Multivitamin 1 Each Tablet, 1 EACH PO DAILY, (Reported) Niacin (Inositol Niacinate) 500 Mg Capsule, 500 MG PO HS, (Reported) Nystatin 100,000 Unit/1 Ml Oral.susp, 5 ML MM DAILY PRN for MOUTH SORES, ( Reported) [place] 3 Polyunsat Fatty Acids 1,000 Mg Cap, 1,000 MG PO BID, (Reported) Ondansetron 4 Mg Tab.rapdis, 4 MG SL Q4H, #10 Prescribed by: STACEY WEST on 10/03/162010 Pantoprazole Sodium 40 Mg Tablet.dr, 40 MG PO PRN, (Reported) Potassium Chloride 10 Meq Capsule.er, 10 MEQ PO DAILY, (Reported) Pregabalin 150 Mg Capsule, 150 MG PO TID, (Reported) Ropinirole HCl 4 Mg Tab.er.24h, 8 MG PO HS, (Reported) TAKES 2 (4MG) TABLETS [Power-C] , 2 TAB.CHEW PC TID, (Reported) VITAMIN C ASCORBIC ACID AND SODIUM ASCORBATE 240MG EACH Constitutional: see HPI, chills, fever EENTM: no symptoms reported Respiratory: no symptoms reported Cardiovascular: no symptoms reported Gastrointestinal: no symptoms reported Genitourinary: no symptoms reported Musculoskeletal: back pain Skin: no symptoms reported Psychiatric/Neurological: See HPI, Headache Hematologic/Lymphatic: No Symptoms Reported All Other Systems Reviewed Negative Unless Noted: Yes Past Qlbisnl-Fgcohx-Wilhrj Hx Patient Social History Alcohol Use: Denies Use Recreational Drug Use: No Smoking Status: Never a Smoker Recent Foreign Travel: No Contact w/Someone Who Travel: No Recent Hopitalizations: Yes Surgeries History of Surgeries: Yes ( lt endolymphatic shunt mastoids, esphageal zenker diverticulum removed) Respiratory History of Respiratory Disorde: Yes (ASTHMA) Respiratory Disorders: Asthma Cardiovascular History of Cardiac Disorders: No (CAD, MITRAL VALVE PROLAPSE) Cardiac Disorders: High Cholesterol, Hypertension, Valvular Heart Disease Neurological History of Neurological Disord: No Reproductive System Hx Reproductive Disorders: No Sexually Transmitted Disease: No Genitourinary History of Genitourinary Disor: Yes Genitourinary Disorders: Renal Failure Gastrointestinal History of Gastrointestinal Di: No Gastrointestinal Disorders: Gastroesophageal Reflux Musculoskeletal History of Musculoskeletal Dis: Yes (FIBROMYALGIA) Musculoskeletal Disorders: Arthritis, Fibromyalgia Endocrine History of Endocrine Disorders: Yes (hypo thyroid) Endocrine Disorders: Hypothyroidsim Cancer History of Cancer: No Psychosocial History of Psychiatric Problem: Yes Behavioral Health Disorders: Anxiety, Depression Blood Transfusions History of Blood Disorders: No Reviewed Nursing Assessment Reviewed/Agree w Nursing PMH: Yes Physical Exam-Suspected Sepsis Physical Exam Vital Signs Vital Sign - Last 12Hours 12/12/16 21:18 Temp 101.0 Capillary Refill : General Appearance: No Apparent Distress, WD/WN HEENT: PERRL/EOMI, Pharynx Normal Neck: Supple, Other (tender over neck posterior but full range of motion.) Respiratory: Lungs Clear, Normal Breath Sounds Cardiovascular: Regular Rate, Rhythm, No Murmur Gastrointestinal: Non Tender, Soft Back: Other (tender over the spine overall.) Extremity: Normal Range of Motion, Non Tender Neurologic/Psychiatric: Alert, Oriented x3 Skin: normal color, warm/dry Focused Exam Evaluation Lactate Level Laboratory Tests 12/12/16 19:20: Lactic Acid Level 0.72 Lactic Acid Level Laboratory Tests Test 12/12/16 19:20 Lactic Acid Level 0.72 MMOL/L (0.50-2.00) Discussed Risk,Benefits: Yes Patient Consents: Yes Position: Lying, L3-4, L4-5, Right, Sitting Sterile Technique: Yes Other Comment: multiple attempts failed Progress/Results/Core Measures Suspected Sepsis SIRS Temperature: Pulse: Respiratory Rate: Laboratory Tests 12/12/16 19:20: White Blood Count 13.3H Blood Pressure / Mean: Laboratory Tests 12/12/16 19:20: Lactic Acid Level 0.72 Laboratory Tests 12/12/16 19:20: Creatinine 1.43H, INR Comment 1.1, Platelet Count 217, Total Bilirubin 0.4 Results/Orders Lab Results Laboratory Tests Test 12/12/16 19:12 12/12/16 19:20 12/12/16 19:40 Range/Units Urine Color YELLOW Urine Clarity CLEAR Urine pH 7 5-9 Urine Specific [place] 1.005 L 1.016-1.022 Urine Protein 2+ H NEGATIVE Urine Glucose (UA) NEGATIVE NEGATIVE Urine Ketones NEGATIVE NEGATIVE Urine Nitrite NEGATIVE NEGATIVE Urine Bilirubin NEGATIVE NEGATIVE Urine Urobilinogen NORMAL NORMAL MG/DL Urine Leukocyte Esterase 2+ H NEGATIVE Urine RBC (Auto) NEGATIVE NEGATIVE Urine RBC NONE /HPF Urine WBC 10-25 H /HPF Urine Squamous Epithelial Cells 2-5 /HPF Urine Crystals NONE /LPF Urine Bacteria TRACE /HPF Urine Casts NONE /LPF Urine Mucus NEGATIVE /LPF Urine Culture Indicated YES White Blood Count 13.3 H 4.3-11.0 10^3/uL Red Blood Count 3.92 L 4.35-5.85 10^6/uL Hemoglobin 11.2 L 11.5-16.0 G/DL Hematocrit 35 35-52 % Mean Corpuscular Volume 90 80-99 FL Mean Corpuscular Hemoglobin 29 25-34 PG Mean Corpuscular Hemoglobin Concent 32 32-36 G/DL Red Cell Distribution Width 13.5 10.0-14.5 % Platelet Count 217 130-400 10^3/uL Mean Platelet Volume 9.8 7.4-10.4 FL Neutrophils (%) (Auto) 86 H 42-75 % Lymphocytes (%) (Auto) 7 L 12-44 % Monocytes (%) (Auto) 7 0-12 % Eosinophils (%) (Auto) 0 0-10 % Basophils (%) (Auto) 0 0-10 % Neutrophils # (Auto) 11.4 H 1.8-7.8 X 10^3 Lymphocytes # (Auto) 0.9 L 1.0-4.0 X 10^3 Monocytes # (Auto) 1.0 0.0-1.0 X 10^3 Eosinophils # (Auto) 0.0 0.0-0.3 10^3/uL Basophils # (Auto) 0.1 0.0-0.1 10^3/uL Neutrophils % (Manual) 89 % Lymphocytes % (Manual) 7 % Monocytes % (Manual) 1 % Eosinophils % (Manual) 0 % Basophils % (Manual) 0 % Band Neutrophils 3 % Blood Morphology Comment NORMAL Prothrombin Time 13.9 12.2-14.7 SEC INR Comment 1.1 0.8-1.4 Activated Partial Thromboplast Time 33 24-35 SEC Sodium Level 141 135-145 MMOL/L Potassium Level 3.8 3.6-5.0 MMOL/L Chloride Level 103 98-107 MMOL/L Carbon Dioxide Level 26 21-32 MMOL/L Anion Gap 12 5-14 MMOL/L Blood Urea Nitrogen 17 7-18 MG/DL Creatinine 1.43 H 0.60-1.30 MG/DL Estimat Glomerular Filtration Rate 38 BUN/Creatinine Ratio 12 Glucose Level 100 70-105 MG/DL Lactic Acid Level 0.72 0.50-2.00 MMOL/L Calcium Level 9.4 8.5-10.1 MG/DL Total Bilirubin 0.4 0.1-1.0 MG/DL Aspartate Amino Transf (AST/SGOT) 17 5-34 U/L Alanine Aminotransferase (ALT/SGPT) 13 0-55 U/L Alkaline Phosphatase 92 40-136 U/L Total Protein 7.3 6.4-8.2 GM/DL Albumin 4.3 3.2-4.5 GM/DL My Orders Orders - REBECCA PEARSON MD Cbc With Automated Diff (12/12/16 19:07) Comprehensive Metabolic Panel (12/12/16 19:07) Lactic Acid Analyzer (12/12/16:07) Blood Culture (12/12/16:07) Sputum Culture (12/12/16:07) Ua Culture If Indicated (12/12/16:) Protime With Inr (12/12/16:07) Partial Thromboplastin Time (12/12/16:07) Chest 1 View, Ap/Pa Only (12/12/16:07) O2 (12/12/16:07) Saline Lock/Iv-Start (12/12/16 19:07) Vital Signs Adult Sepsis Patie Q1HR (12/12/16 19:07) Remove Rings In Anticipation O (12/12/16 19:07) Ns Iv 1000 Ml (Sodium Chloride 0.9%) (12/12/16 19:08) Acetaminophen Tablet (Tylenol Tablet) (12/12/16 19:26) Ondansetron Injection (Zofran Injectio (12/12/16 19:30) Manual Differential (12/12/16 19:20) Urine Culture (12/12/16 19:12) Ct Head Wo (12/12/16 20:13) Tick Panel With Lyme Eia (12/12/16 20:13) Csf Cell Count (12/12/16 20:13) Csf Glucose (12/12/16 20:13) Csf Total Protein (12/12/16 20:13) Csf Culture (12/12/16 20:13) Virus Culture (12/12/16 20:13) Ketorolac Injection (Toradol Injection) (12/12/16 22:05) Ns Iv 1000 Ml (Sodium Chloride 0.9%) (12/12/16 22:05) Ceftriaxone Injection (Rocephin Injectio (12/12/16 22:15) Dexamethasone Pf Injection (Decadron Pf (12/12/16 22:05) Dexamethasone Injection (Decadron Inject (12/12/16 22:10) Medications Given in ED Current Medications Medications Dose Ordered Sig/Sonia Route Start Time Stop Time Status Last Admin Dose Admin Ondansetron HCl 4 mg ONCE ONCE IVP 12/12/16 19:30 12/12/16 19:31 DC 12/12/16 19:37 4 MG Sodium Chloride 1,000 ml @ 0 mls/hr Q0M ONCE IV 12/12/16 19:08 12/12/16 19:09 DC 12/12/16 19:36 1,000 MLS/HR Vital Signs/I&O Vital Sign - Last 12Hours 12/12/16 21:18 Temp 101.0 Intake and Output 12/13/16 00:00 Intake Total 1000 ml Balance 1000 ml Capillary Refill : Progress Note : Progress Note Seen and evaluated. IV, labs, chest x-ray and UA ordered. Normal saline 1 L bolus. Tylenol 1 g by mouth ordered. Monitor patient. No significant findings related to possible cause of infection. Meningitis concerned due to headache, fever, neck and back pain. This was discussed with the patient. We will pursue lumbar puncture. CT head ordered. Consent signed and on chart. 2119: CT head negative. We will proceed with lumbar puncture. 2204: Audible attempts for lumbar puncture failed both sitting and lying at both levels. Unfortunately, needle not long enough to access spinal fluid. Due to symptoms and unable to perform tap, we will initiate treatment and await blood cultures and labs. Rocephin 2 g IV and Decadron 10 mg IV ordered. We will also treat for possible Listeria given age and symptoms. Levaquin 750 mg IV daily as well. We will continue IV fluids and fever control. All of this was discussed with patient and family who agree. I did discuss the case with Dr. Garcia and she agrees to admission, inpatient status. Diagnostic Imaging Diagonstic Imaging: Xray Plain Films/CT/US/NM/MRI: chest Comments NAME: BRANDON MARQUEZ MED REC#: [id number] PT STATUS: REG ER : 1960 PHYSICIAN: REBECCA PEARSON MD ADMIT DATE: 12/12/16/ER Signed Date of Exam: 12/12/16 CHEST 1 VIEW, AP/PA ONLY INDICATION: Wheezing 1928 hrs. Comparison is made to study of 03/31/2015. Overall heart size and pulmonary vascularity are within normal limits. There is no pneumothorax or consolidation. There is elevation of the right hemidiaphragm. No pneumothorax is seen. IMPRESSION: Continued elevation of the right hemidiaphragm without acute abnormality or adverse change detected. Dictated by: Dictated on workstation # [id number] Dict: 12/12/161931 Trans: 12/12/162044 Interpreted by: VERONICA MANLEY MD Electronically signed by: VERONICA MANLEY MD 12/12/162044 Diagonstic Imaging: CT Plain Films/CT/US/NM/MRI: head Comments [facility]IA [facility]. [place], [place] NAME: BRANDON MARQUEZ [facility] REC#: [id number] PT STATUS: REG ER : 1960 PHYSICIAN: REBECCA PEARSON MD ADMIT DATE: 12/12/16/ER Draft Date of Exam:12/12/16 CT HEAD WO PROCEDURE: CT head without contrast. INDICATION: Fever and bodyaches CT HEAD: Multiple contiguous axial CT images of the head were obtained. FINDINGS: Ventricles and sulci are within normal limits for size. There is no intracranial hemorrhage identified. There is no abnormal mass effect or shift of midline structures. IMPRESSION: Unremarkable CT of the head. Dictated on workstation # [id number] Dict: 12/12/162100 Trans: 12/12/162103 KEELY [id number] Interpreted by: VERONICA MANLEY MD Electronically signed by: Departure Communication (Admissions) Time/Spoke to Admitting Phy: 22:05 Impression Impression: Primary Impression: Fever Qualified Codes: R50.9 - Fever, unspecified Additional Impression: Meningitis, unspecified Disposition: ADMITTED INPATIENT Condition: Stable Admissions Decision to Admit Reason: Admit from ER (General) Decision to Admit/Date: Dec 12, 2016 Time/Decision to Admit Time: 22:05 Departure-Patient Inst. Referrals: CAMERON OGLESBY DO (PCP) Primary Care Physician ISABEL MAE (Family) Primary Care Physician REBECCA PEARSON MD Dec 12, 2016 20:16
--- NOTE | 2016-12-12 21:04 | Diagnostic Imaging Report ---
PROCEDURE: CT head without contrast. INDICATION: Fever and bodyaches CT HEAD: Multiple contiguous axial CT images of the head were obtained. FINDINGS: Ventricles and sulci are within normal limits for size. There is no intracranial hemorrhage identified. There is no abnormal mass effect or shift of midline structures. IMPRESSION: Unremarkable CT of the head. Dictated by: Dictated on workstation # [id number]
[2016-12-12] MEDS ORDERED: DEXAMETHASONE PF 10 MG/ML (DECADRON) VIAL IV STA (22:05)
[2016-12-12] MEDS ORDERED: KETOROLAC 30 MG/ML VIAL IVP STA (22:05)
[2016-12-12] MEDS ORDERED: DEXAMETHASONE 10 MG/ML (DECADRON) 1 ML VIAL ONE (22:10)
[2016-12-12] MEDS ORDERED: cefTRIAXone INJECTION 2,000 MG in NS (IVPB) 50 ML IV ONE (22:15)
[2016-12-12] MEDS ORDERED: LEVOFLOXACIN 750 MG/150 ML IV 150 ML IV ONE (23:18)
[2016-12-12 23:20] VITALS: BP 96/53
[2016-12-12] MEDS ORDERED: NS IV 1000 ML 1,000 ML IV SCH (23:45)
[2016-12-12] MEDS: NS IV 1000 ML 1,000 ML IV SCH (23:56)
[2016-12-13] MEDS: ACETAMINOPHEN 500 MG TAB (TYLENOL) PO PRN (01:33)
[2016-12-13 04:00] VITALS: BP 113/55
[2016-12-13] MEDS: IBUPROFEN 600 MG (MOTRIN) TAB PO PRN ×2 (04:16→12:31)
--- OUTSIDE RECORDS SUMMARY | 2016-12-13 04:45 | XMS REPORT ---
Author Author KEIRA FORD [facility] Address [address] [place] [address] Care Team Providers Care Purchasing Assistant Name Role Phone KEIRA FORD Unavailable PROBLEMS Type Condition ICD9-CM Code [id number] Code Onset Dates Condition Status SNOMED Code Problem Pain in left knee M25.562 Active 32096745 Problem Low back pain M54.5 Active 264865366 Problem Pain in right knee M25.561 Active 27413667 Problem Dysthymic 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 Active 59903865 Problem Generalized anxiety disorder F41.1 Active 64975948 Problem Restless leg G25.81 Active 93282748 Problem Depressed F32.9 Active 70428954 Problem Asthma J45.909 Active 801086957 Problem Other seasonal allergic rhinitis J30.2 Active 373451635 Problem Palpitations R00.2 Active 95881091 Problem Hypokalemia E87.6 Active 16233411 Problem Insomnia G47.00 Active 108337310 Problem Yeast dermatitis B37.2 Active 50723096 Problem Fibromyalgia M79.7 Active 447771818 Problem Dyspepsia R10.13 Active 358253902 Problem Bipolar disorder, current episode manic without psychotic features F31.10 Active 021469476 Problem Chronic kidney disease, unspecified N18.9 Active 028925616 Problem Chronic kidney disease, stage 4 (severe) N18.4 Active 894871030 Problem Coronary artery disease involving [place] coronary artery of [place] heart, angina presence unspecified I25.10 Active 9287887377683 Problem Hypothyroid E03.9 Active 91007622 Problem Essential (primary) hypertension I10 Active 79996502 Problem Mixed stress and urge urinary incontinence N39.46 Active 711879101 Problem Anemia in chronic kidney disease D63.1 Active 889538470990336 Problem Vitamin D deficiency E55.9 Active 30010120 Problem Bowel habit changes R19.4 Active 68573553 Problem Urinary problem R39.89 Active 444057491 Problem History of colon polyps Z86.010 Active 826121900 Problem Functional 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 Active 60576355 Problem Dysuria R30.0 Active 75519871 Problem Asthma with acute exacerbation in adult J45.901 Active 326929336 Problem Acute non-recurrent maxillary sinusitis J01.00 Active 10081882 Problem History of anemia Z86.2 Active 046488541 ALLERGIES Unknown Allergies SOCIAL HISTORY No smoking Hx information available PLAN OF CARE Activity Details Follow Up 4 Weeks Reason: VITAL SIGNS MEDICATIONS Unknown Medications RESULTS No Results PROCEDURES Procedure Date Ordered Related Diagnosis Body Site Psychotherapy, patient &/family, 30 minutes, established patient Apr 14, 2016 IMMUNIZATIONS No Known Immunizations
--- OUTSIDE RECORDS SUMMARY | 2016-12-13 04:47 | XMS REPORT ---
Author Author ISABEL MAE [facility] Address [address] [place] [address] Care Team Providers Care Ice Cream Freezer Helper Name Role Phone ISABEL MAE Unavailable PROBLEMS Type Condition ICD9-CM Code [id number] Code Onset Dates Condition Status SNOMED Code Problem Low back pain M54.5 Active 653242305 Problem Pain in right knee M25.561 Active 12439413 Problem Pain in left knee M25.562 Active 40172533 Problem Generalized anxiety disorder F41.1 Active 82453489 Problem Dysthymic 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 Active 67545196 Problem Coronary artery disease involving [place] coronary artery of [place] heart, angina presence unspecified I25.10 Active 4433472939323 Problem Restless leg G25.81 Active 29327204 Problem Palpitations R00.2 Active 91015715 Problem Other seasonal allergic rhinitis J30.2 Active 043126463 Problem Chronic kidney disease, stage 4 (severe) N18.4 Active 963175384 Problem Dyspepsia R10.13 Active 331387657 Problem Depressed F32.9 Active 13106322 Problem Yeast dermatitis B37.2 Active 33468877 Problem Fibromyalgia M79.7 Active 379343915 Problem Hypokalemia E87.6 Active 40612681 Problem Bipolar disorder, current episode manic without psychotic features F31.10 Active 887237188 Problem Anemia in chronic kidney disease D63.1 Active 562483236104378 Problem Asthma J45.909 Active 695611758 Problem Insomnia G47.00 Active 207014799 Problem Hypothyroid E03.9 Active 85922221 Problem Vitamin D deficiency E55.9 Active 86766660 Problem Mixed stress and urge urinary incontinence N39.46 Active 351170913 Problem Chronic kidney disease, unspecified N18.9 Active 843945720 Problem Essential (primary) hypertension I10 Active 66066112 Problem Acute non-recurrent maxillary sinusitis J01.00 Active 47084959 Problem History of colon polyps Z86.010 Active 966557940 Problem Functional 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 Active 94740937 Problem Urinary problem R39.89 Active 333065738 Problem Asthma with acute exacerbation in adult J45.901 Active 779093257 Problem Dysuria R30.0 Active 25881888 Problem Bowel habit changes R19.4 Active 36080830 Problem History of anemia Z86.2 Active 966433456 ALLERGIES Unknown Allergies SOCIAL HISTORY No smoking Hx information available PLAN OF CARE VITAL SIGNS MEDICATIONS Unknown Medications RESULTS No Results PROCEDURES No Known procedures IMMUNIZATIONS No Known Immunizations
--- OUTSIDE RECORDS SUMMARY | 2016-12-13 04:48 | XMS REPORT ---
Author Author ZABRINA MEDINA [facility] Address Unknown Care Team Providers Care Machine Sneller Name Role Phone ZABRINA MEDINA Unavailable PROBLEMS Type Condition ICD9-CM Code [id number] Code Onset Dates Condition Status SNOMED Code Problem Pain in left knee M25.562 Active 51871226 Problem Low back pain M54.5 Active 566836837 Problem Pain in right knee M25.561 Active 76414061 Problem Dysthymic 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 Active 20917683 Problem Generalized anxiety disorder F41.1 Active 69073814 Problem Restless leg G25.81 Active 15170340 Problem Depressed F32.9 Active 68564306 Problem Asthma J45.909 Active 358258117 Problem Other seasonal allergic rhinitis J30.2 Active 823959698 Problem Palpitations R00.2 Active 36606791 Problem Hypokalemia E87.6 Active 50047882 Problem Insomnia G47.00 Active 035453215 Problem Yeast dermatitis B37.2 Active 75435763 Problem Fibromyalgia M79.7 Active 388324082 Problem Dyspepsia R10.13 Active 826329163 Problem Bipolar disorder, current episode manic without psychotic features F31.10 Active 604059057 Problem Chronic kidney disease, unspecified N18.9 Active 778823474 Problem Chronic kidney disease, stage 4 (severe) N18.4 Active 793555893 Problem Coronary artery disease involving [place] coronary artery of [place] heart, angina presence unspecified I25.10 Active 6356542574519 Problem Hypothyroid E03.9 Active 51555372 Problem Essential (primary) hypertension I10 Active 23603644 Problem Mixed stress and urge urinary incontinence N39.46 Active 120015315 Problem Anemia in chronic kidney disease D63.1 Active 187657700704658 Problem Vitamin D deficiency E55.9 Active 35725504 Problem Bowel habit changes R19.4 Active 28778230 Problem Urinary problem R39.89 Active 350688882 Problem History of colon polyps Z86.010 Active 557830553 Problem Functional 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 Active 13956179 Problem Dysuria R30.0 Active 38533882 Problem Asthma with acute exacerbation in adult J45.901 Active 878972193 Problem Acute non-recurrent maxillary sinusitis J01.00 Active 76938757 Problem History of anemia Z86.2 Active 008684554 ALLERGIES Substance Reaction Event Type Date Status N.K.D.A. Unknown Non Drug Allergy Mar, Unknown SOCIAL HISTORY No smoking Hx information available PLAN OF CARE Activity Details Follow Up 3 Months Reason: VITAL SIGNS Height 63 in 2016-04-12 Weight 246.6 lbs 2016-04-12 Heart Rate 88 bpm 2016-04-12 Respiratory Rate 20 2016-04-12 BMI 43.68 kg/m2 2016-04-12 Blood pressure systolic 122 mmHg 2016-04-12 Blood pressure diastolic 82 mmHg 2016-04-12 MEDICATIONS Medication Instructions Dosage Frequency Start Date End Date Duration Status Lyrica 150 MG Orally 3 times a day 1 capsule 8h Active Synthroid 125 mcg Orally Once a day 1 tablet 24h Active Toprol XL 50 MG TAKE ONE TABLET BY MOUTH THREE TIMES DAILY 30 Active Protonix 40 MG TAKE ONE TABLET BY MOUTH ONCE DAILY Active Vitamin D (Ergocalciferol) 69539 UNIT Orally once monthly 1 capsule Active Requip 4 MG Orally do not fill in er Once a day 2 tablets 1 to 3 hours before bedtime 24h 30 Active Nystatin 651495 UNIT/GM Externally Twice a day 1 application to affected area 12h Active Losartan Potassium 100 MG TAKE ONE TABLET BY MOUTH DAILY 30 Active Cymbalta 30 MG Orally Once a day 1 capsule 24h Mar, 30 day(s) Active Voltaren 1 % Transdermal to knee BID. Max dose 4 grams 2 grams Jan, Active Norvasc 10 Orally Once a day 1 tablet 24h Active Clonazepam 1 MG Orally Twice a day 1 tablet 12h 30 days Active Amitriptyline HCl 75 MG Orally Once a day 1 tablet 24h Mar, 30 day(s) Active Gemfibrozil 600 MG Orally 3 times a day 1 tablet 8h Active Cymbalta 60 MG Orally Once a day 1 capsule 24h 30 days Active Potassium Chloride ER 10 MEQ Orally Once a day 1 capsule with food 24h Apr, 30 days Active Fish Oil 1000 MG Orally Once a day 1 capsule 24h Active Ferrous Sulfate 325 (65 Fe) MG Orally Once a day 1 tablet 24h Active ProAir HFA 108 (90 Base) MCG/ACT Inhalation every 4 hrs 2 puffs as needed 4h 16 Sep, 2015 Active Fiber Complete - Active Fluticasone Propionate 50 MCG/ACT USE ONE SPRAY IN EACH NOSTRIL TWICE DAILY Active Nystatin 648209 UNIT/ML Mouth/Throat Four times a day 4 ml 6h Active Symbicort 80-4.5 MCG/ACT Inhalation Twice a day 2 puffs 12h Mar, Active Cetirizine HCl 10 MG Orally Once a day 1 tablet 24h Active Vitamin C Gummie 120 MG Active Furosemide 40 mg Orally Once a day 1 tablet 24h Active RESULTS Name Result Date Reference Range URINE DRUG SCREEN (IN HOUSE) 2016-04-12 Lot # [id number] Exp date 10/2017 Control + COCAINE Negative AMPH Negative MTD Negative THC Negative OPIATE Negative BENZO Negative PCP Negative BAR Negative OXY Negative MAMP Negative TCA BUP Negative MDMA Negative PROCEDURES Procedure Date Ordered Related Diagnosis Body Site Office Visit, Est Pt., Level 3 Apr 12, 2016 DRUG SCREEN NON TLC DEVICES Apr 12, 2016 IMMUNIZATIONS No Known Immunizations
--- OUTSIDE RECORDS SUMMARY | 2016-12-13 04:53 | XMS REPORT ---
Author Author ISABEL MAE [facility] Address [address] [place] [address] Care Team Providers Care Policy Advisor Name Role Phone ISABEL MAE Unavailable PROBLEMS Type Condition ICD9-CM Code THU90-OU Code Onset Dates Condition Status SNOMED Code Problem Pain in left knee M25.562 Active 68680343 Problem Low back pain M54.5 Active 429255486 Problem Pain in right knee M25.561 Active 95471650 Problem Dysthymic 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 Active 42879578 Problem Generalized anxiety disorder F41.1 Active 47378560 Problem Restless leg G25.81 Active 89675988 Problem Depressed F32.9 Active 43493716 Problem Asthma J45.909 Active 378525886 Problem Other seasonal allergic rhinitis J30.2 Active 584775528 Problem Palpitations R00.2 Active 17642068 Problem Hypokalemia E87.6 Active 01238607 Problem Insomnia G47.00 Active 117185110 Problem Yeast dermatitis B37.2 Active 13812793 Problem Fibromyalgia M79.7 Active 816671106 Problem Dyspepsia R10.13 Active 576975241 Problem Bipolar disorder, current episode manic without psychotic features F31.10 Active 749893325 Problem Chronic kidney disease, unspecified N18.9 Active 780940887 Problem Chronic kidney disease, stage 4 (severe) N18.4 Active 679097822 Problem Coronary artery disease involving [place] coronary artery of [place] heart, angina presence unspecified I25.10 Active 6526826350415 Problem Hypothyroid E03.9 Active 71626480 Problem Essential (primary) hypertension I10 Active 71823589 Problem Mixed stress and urge urinary incontinence N39.46 Active 996768641 Problem Anemia in chronic kidney disease D63.1 Active 628824149339279 Problem Vitamin D deficiency E55.9 Active 60473184 Problem Bowel habit changes R19.4 Active 21418289 Problem Urinary problem R39.89 Active 295968982 Problem History of colon polyps Z86.010 Active 287222339 Problem Functional 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 Active 66596884 Problem Dysuria R30.0 Active 92708500 Problem Asthma with acute exacerbation in adult J45.901 Active 913515372 Problem Acute non-recurrent maxillary sinusitis J01.00 Active 41451991 Problem History of anemia Z86.2 Active 264988496 ALLERGIES Unknown Allergies SOCIAL HISTORY No smoking Hx information available PLAN OF CARE VITAL SIGNS MEDICATIONS Unknown Medications RESULTS No Results PROCEDURES No Known procedures IMMUNIZATIONS No Known Immunizations
--- OUTSIDE RECORDS SUMMARY | 2016-12-13 04:53 | XMS REPORT ---
Author Author ISABEL MAE [facility] Address [address] [place] [address] Care Team Providers Care Brewing Technician Name Role Phone ISABEL MAE Unavailable PROBLEMS Type Condition ICD9-CM Code QMT01-OI Code Onset Dates Condition Status SNOMED Code Problem Low back pain M54.5 Active 097710682 Problem Pain in right knee M25.561 Active 97567768 Problem Pain in left knee M25.562 Active 18766432 Problem Generalized anxiety disorder F41.1 Active 95142381 Problem Dysthymic 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 Active 68432128 Problem Coronary artery disease involving [place] coronary artery of [place] heart, angina presence unspecified I25.10 Active 9484203546739 Problem Restless leg G25.81 Active 63822632 Problem Palpitations R00.2 Active 03903289 Problem Other seasonal allergic rhinitis J30.2 Active 598128319 Problem Chronic kidney disease, stage 4 (severe) N18.4 Active 648722532 Problem Dyspepsia R10.13 Active 421006436 Problem Depressed F32.9 Active 29725442 Problem Yeast dermatitis B37.2 Active 40851255 Problem Fibromyalgia M79.7 Active 272240260 Problem Hypokalemia E87.6 Active 93928224 Problem Bipolar disorder, current episode manic without psychotic features F31.10 Active 355334399 Problem Anemia in chronic kidney disease D63.1 Active 706229749069205 Problem Asthma J45.909 Active 307442963 Problem Insomnia G47.00 Active 760750889 Problem Hypothyroid E03.9 Active 04518377 Problem Vitamin D deficiency E55.9 Active 58983126 Problem Mixed stress and urge urinary incontinence N39.46 Active 773263744 Problem Chronic kidney disease, unspecified N18.9 Active 111265049 Problem Essential (primary) hypertension I10 Active 63447375 Problem Acute non-recurrent maxillary sinusitis J01.00 Active 73845437 Problem History of colon polyps Z86.010 Active 178515405 Problem Functional 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 Active 59913540 Problem Urinary problem R39.89 Active 836368484 Problem Asthma with acute exacerbation in adult J45.901 Active 904259796 Problem Dysuria R30.0 Active 64065431 Problem Bowel habit changes R19.4 Active 58279733 Problem History of anemia Z86.2 Active 217039305 ALLERGIES Unknown Allergies SOCIAL HISTORY No smoking Hx information available PLAN OF CARE VITAL SIGNS MEDICATIONS Medication Instructions Dosage Frequency Start Date End Date Duration Status Lyrica 150 MG Orally 3 times a day 1 capsule 8h Active RESULTS No Results PROCEDURES No Known procedures IMMUNIZATIONS No Known Immunizations
--- OUTSIDE RECORDS SUMMARY | 2016-12-13 04:54 | XMS REPORT ---
Author Author ISABEL MAE [facility] Address [address] [place] [address] Care Team Providers Care Art Consultant Name Role Phone ISABEL MAE Unavailable PROBLEMS Type Condition ICD9-CM Code ASG21-RR Code Onset Dates Condition Status SNOMED Code Problem Low back pain M54.5 Active 352030522 Problem Pain in right knee M25.561 Active 35263640 Problem Pain in left knee M25.562 Active 35197524 Problem Generalized anxiety disorder F41.1 Active 92212994 Problem Dysthymic 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 Active 88487953 Problem Coronary artery disease involving [place] coronary artery of [place] heart, angina presence unspecified I25.10 Active 3327886466776 Problem Restless leg G25.81 Active 80519257 Problem Palpitations R00.2 Active 09260750 Problem Other seasonal allergic rhinitis J30.2 Active 417346821 Problem Chronic kidney disease, stage 4 (severe) N18.4 Active 420336192 Problem Dyspepsia R10.13 Active 076946164 Problem Depressed F32.9 Active 24596528 Problem Yeast dermatitis B37.2 Active 18204330 Problem Fibromyalgia M79.7 Active 265514331 Problem Hypokalemia E87.6 Active 73483016 Problem Bipolar disorder, current episode manic without psychotic features F31.10 Active 493133259 Problem Anemia in chronic kidney disease D63.1 Active 459522913113217 Problem Asthma J45.909 Active 894211133 Problem Insomnia G47.00 Active 862363896 Problem Hypothyroid E03.9 Active 06096343 Problem Vitamin D deficiency E55.9 Active 58741961 Problem Mixed stress and urge urinary incontinence N39.46 Active 674195366 Problem Chronic kidney disease, unspecified N18.9 Active 632833881 Problem Essential (primary) hypertension I10 Active 45744943 Problem Acute non-recurrent maxillary sinusitis J01.00 Active 88890080 Problem History of colon polyps Z86.010 Active 305964349 Problem Functional 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 Active 73924001 Problem Urinary problem R39.89 Active 155471971 Problem Asthma with acute exacerbation in adult J45.901 Active 004099761 Problem Dysuria R30.0 Active 60241725 Problem Bowel habit changes R19.4 Active 20700470 Problem History of anemia Z86.2 Active 156051851 ALLERGIES Unknown Allergies SOCIAL HISTORY No smoking Hx information available PLAN OF CARE VITAL SIGNS MEDICATIONS Unknown Medications RESULTS No Results PROCEDURES No Known procedures IMMUNIZATIONS No Known Immunizations
[2016-12-13 08:00] VITALS: BP 133/62
[2016-12-13] MEDS ORDERED: ROPI4TAB3 PO (08:59)
[2016-12-13] MEDS ORDERED: FLUT16SP22 NS (08:59)
[2016-12-13] MEDS ORDERED: GEMF600T3 PO (08:59)
[2016-12-13] MEDS ORDERED: LEVO137T2 PO (08:59)
[2016-12-13] MEDS ORDERED: OXCA300T PO (08:59)
[2016-12-13] MEDS ORDERED: AMIT100T2 PO (08:59)
[2016-12-13] MEDS ORDERED: CYCL10TA9 PO (09:18)
[2016-12-13] MEDS ORDERED: DICL100G31 TOP (09:18)
[2016-12-13] MEDS ORDERED: NYST15CR TOP (09:18)
[2016-12-13] MEDS: NS IV 1000 ML 1,000 ML IV SCH ×2 (09:59→19:41)
[2016-12-13] MEDS ORDERED: ONDANSETRON 4 MG/2 ML (SDV) Z0FRAN IVP PRN (10:00)
[2016-12-13 11:28] LABS: BASOPHILS % (AUTO) 0 % (0-10); EOSINOPHILS % (AUTO) 0 % (0-10); LYMPHOCYTES # (AUTO) 0.6 X 10^3 (1.0-4.0); LYMPHOCYTES % (AUTO) 9 % (12-44); MEAN CORPUSCULAR HEMOGLOBIN 29 PG (25-34); MEAN CORPUSCULAR HGB CONC 32 G/DL (32-36); MEAN CORPUSCULAR VOLUME 91 FL (80-99); MEAN PLATELET VOLUME 9.8 FL (7.4-10.4); MONOCYTES # (AUTO) 0.4 X 10^3 (0.0-1.0); MONOCYTES % (AUTO) 6 % (0-12); NEUTROPHILS # (AUTO) 6.5 X 10^3 (1.8-7.8); NEUTROPHILS % (AUTO) 86 % (42-75); PLATELET COUNT 201 10^3/uL (130-400); RED BLOOD COUNT 3.48 10^6/uL (4.35-5.85); RED CELL DISTRIBUTION WIDTH 13.4 % (10.0-14.5); WHITE BLOOD COUNT 7.6 10^3/uL (4.3-11.0)
[2016-12-13 11:56] LABS: ALBUMIN 3.6 GM/DL (3.2-4.5); BILIRUBIN,TOTAL 0.2 MG/DL (0.1-1.0); CALCIUM 8.7 MG/DL (8.5-10.1); CREATININE SERUM 1.34 MG/DL (0.60-1.30); TOTAL PROTEIN 6.3 GM/DL (6.4-8.2)
[2016-12-13 12:00] VITALS: BP 105/53
[2016-12-13 16:00] VITALS: BP 114/55
[2016-12-13] MEDS ORDERED: CYCLOBENZAPRINE 10 MG (FLEXERIL) TAB PO PRN (17:30)
[2016-12-13] MEDS ORDERED: RT-ALBUTEROL HFA (VENTOLIN) PER PUFF IH PRN (17:30)
[2016-12-13] MEDS ORDERED: RT-ALBUTEROL SULF 2.5 MG/3 ML PRE-MIX VIAL IH PRN (19:00)
[2016-12-13 20:00] VITALS: BP 130/59
[2016-12-13] MEDS ORDERED: RT-ADVAIR HFA 115/21 MCG PER PUFF IH SCH (20:00)
--- NOTE | 2016-12-13 21:05 | History & Physicial (CHS) ---
HPI History of Present Illness: 56 yo female presented to ER after being sent from clinic due to fever of 103 and lethargy and concern for sepsis. She states she has not been feeling well for about a week and over the weekend started to feel extremely ill with chills , dizziness, diarrhea and vomiting. She then developed headache and neck pain/ stiffness. She denies recent travel or known tick or mosquito exposure. She admits a little discomfort with urination, but states this a common problem for her. She does feel she has had some trouble concentrating or thinking of words, but also admits this is chronic for her and she has even confided to her therapist that she is concerned about Alzheimer disease. Date seen by provider: Dec 13, 2016 Time Seen by Provider: 10:00 Attending Physician Stephania Garcia MD PCP Melonie Kaye DO Consult Date of Admission Dec 12, 2016 at 22:33 Home Medications Home Medications Reviewed patient Home Medication Reconciliation Form Allergies Coded Allergies: No Known Drug Allergies (Unverified , 09/29/15) ERY-Eleniv-Yzpzfs Hx Patient Social History Alcohol Use: Denies Use Recreational Drug Use: No Smoking Status: Never a Smoker Recent Foreign Travel: No Contact w/other who traveled: No Recent Hopitalizations: Yes Recent Infectious Disease Expo: No Physical Abuse Screen: No Sexual Abuse: No Past Medical History PMHx: CKD Anxiety/depression CAD Hypothyroidism Asthma RLS Fibromyalgia PSurgHx: Cholecystectomy Appendectomy C section Hysterectomy Esophageal surgery Bladder surgery Family Medical History Significant Family History: No Pertinent Family Hx Review of Systems ([facility]) Constitutional: chills, dizziness, fever, malaise EENTM: No nose congestion Respiratory: No cough Cardiovascular: No chest pain Gastrointestinal: No abdominal pain Genitourinary: see HPI Musculoskeletal: back pain, muscle pain Skin: No rash Psychiatric/Neurological: Headache Reviewed Test Results Reviewed Test Results Lab Laboratory Tests Test 12/12/16 19:12 12/12/16 19:20 12/12/16 19:40 12/13/16 11:19 Range/Units Urine Color YELLOW Urine Clarity CLEAR Urine pH 7 5-9 Urine Specific [place] 1.005 L 1.016-1.022 Urine Protein 2+ H NEGATIVE Urine Glucose (UA) NEGATIVE NEGATIVE Urine Ketones NEGATIVE NEGATIVE Urine Nitrite NEGATIVE NEGATIVE Urine Bilirubin NEGATIVE NEGATIVE Urine Urobilinogen NORMAL NORMAL MG/DL Urine Leukocyte Esterase 2+ H NEGATIVE Urine RBC (Auto) NEGATIVE NEGATIVE Urine RBC NONE /HPF Urine WBC 10-25 H /HPF Urine Squamous Epithelial Cells 2-5 /HPF Urine Crystals NONE /LPF Urine Bacteria TRACE /HPF Urine Casts NONE /LPF Urine Mucus NEGATIVE /LPF Urine Culture Indicated YES White Blood Count 13.3 H 7.6 4.3-11.0 10^3/uL Red Blood Count 3.92 L 3.48 L 4.35-5.85 10^6/uL Hemoglobin 11.2 L 10.0 L 11.5-16.0 G/DL Hematocrit 35 32 L 35-52 % Mean Corpuscular Volume 90 91 80-99 FL Mean Corpuscular Hemoglobin 29 29 25-34 PG Mean Corpuscular Hemoglobin Concent 32 32 32-36 G/DL Red Cell Distribution Width 13.5 13.4 10.0-14.5 % Platelet Count 217 201 130-400 10^3/uL Mean Platelet Volume 9.8 9.8 7.4-10.4 FL Neutrophils (%) (Auto) 86 H 86 H 42-75 % Lymphocytes (%) (Auto) 7 L 9 L 12-44 % Monocytes (%) (Auto) 7 6 0-12 % Eosinophils (%) (Auto) 0 0 0-10 % Basophils (%) (Auto) 0 0 0-10 % Neutrophils # (Auto) 11.4 H 6.5 1.8-7.8 X 10^3 Lymphocytes # (Auto) 0.9 L 0.6 L 1.0-4.0 X 10^3 Monocytes # (Auto) 1.0 0.4 0.0-1.0 X 10^3 Eosinophils # (Auto) 0.0 0.0 0.0-0.3 10^3/uL Basophils # (Auto) 0.1 0.0 0.0-0.1 10^3/uL Neutrophils % (Manual) 89 % Lymphocytes % (Manual) 7 % Monocytes % (Manual) 1 % Eosinophils % (Manual) 0 % Basophils % (Manual) 0 % Band Neutrophils 3 % Blood Morphology Comment NORMAL Prothrombin Time 13.9 12.2-14.7 SEC INR Comment 1.1 0.8-1.4 Activated Partial Thromboplast Time 33 24-35 SEC Sodium Level 141 142 135-145 MMOL/L Potassium Level 3.8 4.0 3.6-5.0 MMOL/L Chloride Level 103 109 H 98-107 MMOL/L Carbon Dioxide Level 26 22 21-32 MMOL/L Anion Gap 12 11 5-14 MMOL/L Blood Urea Nitrogen 17 20 H 7-18 MG/DL Creatinine 1.43 H 1.34 H 0.60-1.30 MG/DL Estimat Glomerular Filtration Rate 38 41 BUN/Creatinine Ratio 12 15 Glucose Level 100 134 H 70-105 MG/DL Lactic Acid Level 0.72 0.50-2.00 MMOL/L Calcium Level 9.4 8.7 8.5-10.1 MG/DL Total Bilirubin 0.4 0.2 0.1-1.0 MG/DL Aspartate Amino Transf (AST/SGOT) 17 15 5-34 U/L Alanine Aminotransferase (ALT/SGPT) 13 12 0-55 U/L Alkaline Phosphatase 92 72 40-136 U/L Total Protein 7.3 6.3 L 6.4-8.2 GM/DL Albumin 4.3 3.6 3.2-4.5 GM/DL Radiology CXR 12/12: Continued elevation of right hemidiaphragm, otherwise unremarkable CT head 12/12: Unremarkable Physical Exam-([facility]) Physical Exam Vital Signs VS - Last 72 Hours, by Label 12/12/16 12/12/16 12/12/16 12/12/16 19:09 21:18 22:58 23:10 Temp 103.7 101.0 Pulse 99 83 Resp 20 20 B/P (MAP) 152/72 Pulse Ox 98 98 O2 Delivery Room Air Room Air Nasal Cannula O2 Flow Rate 2.00 2.00 12/12/16 12/13/16 12/13/16 12/13/16 23:20 04:00 07:08 08:00 Temp 99.3 97.3 98.9 Pulse 75 68 73 Resp 18 18 22 B/P (MAP) 96/53 113/55 133/62 Pulse Ox 97 98 98 99 O2 Delivery Nasal Cannula Nasal Cannula Nasal Cannula Room Air O2 Flow Rate 2.00 2.00 2.00 12/13/16 12/13/16 12/13/16 12/13/16 09:00 12:00 16:00 19:50 Temp 98.9 98.7 Pulse 65 83 Resp 20 18 B/P (MAP) 105/53 114/55 Pulse Ox 99 95 97 O2 Delivery Room Air Room Air Room Air Nasal Cannula O2 Flow Rate 2.00 2.00 Capillary Refill : NONELess Than 3 Seconds General Appearance: WD/WN Eyes: Bilateral Eye EOMI Respiratory: lungs clear, normal breath sounds Cardiovascular: regular rate, rhythm, no murmur Gastrointestinal: normal bowel sounds, non tender, soft Extremities: no pedal edema Neurologic/Psychiatric: steel sampler II-XII nml as tested, alert, normal mood/affect, oriented x 3 Skin: normal color, warm/dry Assessment/Plan Assessment/Plan Admission Dx Sepsis with unknown etiology, possible meningitis Chronic kidney disease HTN HLD Hypothyroidism Fibromyalgia Restless leg syndrome Plan Sepsis with unknown etiology, possible meningitis- febrile and with leukocytosis on admission, no clear evidence of pneumonia or UTI. Unable to obtain LP due to body habitus, started on presumptive treatment for possible meningitis -Improved labs overnight, will continue current antibiotics, tick panel and [place] virus serologies pending Chronic kidney disease- stable, monitor function and electrolytes, resume home furosemide HTN- hold home amlodipine and losartan with low end of normal BP currently HLD- resume home medications Hypothyroidism- resume home synthroid Fibromyalgia- resume home cymbalta, flexeril, amitriptyline, holding pregabalin as dose is above recommended for renal function, may need adjusted Restless leg syndrome- resume home med DVT ppx: enoxaparin Diagnosis/Problems: Clinical Quality Measures DVT/VTE Risk/Contraindication: Risk Factor Score Per Nursin RFS Level Per Nursing on Admit: 3=High Copy Copies To 1: DIOGO Espinosa BETHANY N MD Dec 13, 2016 21:05
[2016-12-13] MEDS: rOPINIRole 1 MG (REQUIP) TABLET PO SCH ×2 (21:06→21:44)
[2016-12-13] MEDS: cefTRIAXone INJECTION 1,000 MG in NS (IVPB) 50 ML IV SCH (21:06)
[2016-12-13] MEDS: GEMFIBROZIL 600 MG (LOPID) TAB PO SCH (21:07)
[2016-12-13] MEDS: AMITRIPTYLINE 50 MG (ELAVIL) TAB PO SCH (21:07)
[2016-12-13] MEDS: OXcarbazepine (TRILEPTAL) 300 MG TAB PO SCH (21:07)
[2016-12-13] MEDS: clonazePAM 1 MG (KlonoPIN) TAB PO SCH (21:07)
[2016-12-13] MEDS: FLUTICASONE NASAL SPRAY (FLONASE) 16 GM BTL NS SCH (21:08)
[2016-12-13] MEDS: ENOXAPARIN 40 MG/0.4 ML (LOVENOX) SYR SC SCH (21:44)
[2016-12-13] MEDS: LEVOFLOXACIN 750 MG/D5W 150 ML PRE-MIX IV SCH (21:45)
[2016-12-13] MEDS ORDERED: NON-FORMULARY MEDICATION 1 EA EA (Ropinirole HCl 4 MG) PO SCH (22:00)
[2016-12-13] MEDS ORDERED: NON-FORMULARY MEDICATION 1 EA EA (Amitriptyline HCl 100 MG) PO SCH (22:00)
[2016-12-13 23:53] VITALS: BP 142/64
[2016-12-14 03:30] VITALS: BP 114/56
[2016-12-14 04:55] LABS: LYME AB G M 0.21 Index (0.00-0.89)
[2016-12-14] MEDS: LEVOTHYROXINE 25 MCG (LEVOTHROID) TAB PO SCH (05:31)
[2016-12-14] MEDS: PANTOPRAZOLE 40 MG (PROTONIX) TAB PO SCH (05:31)
[2016-12-14] MEDS: LEVOTHYROXINE 112 MCG (LEVOTHROID) TAB PO SCH (05:31)
[2016-12-14] MEDS: NS IV 1000 ML 1,000 ML IV SCH ×2 (05:31→17:40)
[2016-12-14] MEDS: IBUPROFEN 600 MG (MOTRIN) TAB PO PRN (05:32)
[2016-12-14 06:31] LABS: BASOPHILS # (AUTO) 0.1 10^3/uL (0.0-0.1); BASOPHILS % (AUTO) 1 % (0-10); EOSINOPHILS # (AUTO) 0.1 10^3/uL (0.0-0.3); EOSINOPHILS % (AUTO) 2 % (0-10); LYMPHOCYTES # (AUTO) 1.9 X 10^3 (1.0-4.0); LYMPHOCYTES % (AUTO) 25 % (12-44); MEAN CORPUSCULAR HEMOGLOBIN 29 PG (25-34); MEAN CORPUSCULAR HGB CONC 32 G/DL (32-36); MEAN CORPUSCULAR VOLUME 91 FL (80-99); MEAN PLATELET VOLUME 10.3 FL (7.4-10.4); MONOCYTES # (AUTO) 0.8 X 10^3 (0.0-1.0); MONOCYTES % (AUTO) 11 % (0-12); NEUTROPHILS # (AUTO) 4.5 X 10^3 (1.8-7.8); NEUTROPHILS % (AUTO) 61 % (42-75); PLATELET COUNT 186 10^3/uL (130-400); RED CELL DISTRIBUTION WIDTH 13.5 % (10.0-14.5); WHITE BLOOD COUNT 7.4 10^3/uL (4.3-11.0)
[2016-12-14 06:47] LABS: CALCIUM 8.5 MG/DL (8.5-10.1); CREATININE SERUM 1.16 MG/DL (0.60-1.30); POTASSIUM 3.6 MMOL/L (3.6-5.0)
[2016-12-14] MEDS: FERROUS SULF 325 MG (IRON) TAB PO SCH (08:21)
[2016-12-14 08:25] LABS: LYME AB INTERP Negative (Negative)
[2016-12-14 08:26] LABS: TULAREMIA ANTIBODY <1:20
[2016-12-14 08:42] VITALS: BP 133/66
[2016-12-14] MEDS ORDERED: NON-FORMULARY MEDICATION 1 EA EA (Cetirizine HCl (Zyrtec) 10 MG) PO SCH (09:00)
[2016-12-14] MEDS ORDERED: NON-FORMULARY MEDICATION 1 EA EA (Levothyroxine Sodium 137 MCG) PO SCH (09:00)
[2016-12-14] MEDS ORDERED: NON-FORMULARY MEDICATION 1 EA EA (Duloxetine HCl (Cymbalta) 60 MG) PO SCH (09:00)
[2016-12-14] MEDS: FUROSEMIDE 40 MG (LASIX) TAB PO SCH (09:02)
[2016-12-14] MEDS: FLUTICASONE NASAL SPRAY (FLONASE) 16 GM BTL NS SCH ×2 (09:02→21:40)
[2016-12-14] MEDS: clonazePAM 1 MG (KlonoPIN) TAB PO SCH ×2 (09:02→21:39)
[2016-12-14] MEDS: LORATADINE (CLARITIN) 10 MG TAB PO SCH (09:02)
[2016-12-14] MEDS: GEMFIBROZIL 600 MG (LOPID) TAB PO SCH ×2 (09:02→21:39)
[2016-12-14] MEDS: OXcarbazepine (TRILEPTAL) 300 MG TAB PO SCH ×2 (09:02→21:39)
[2016-12-14] MEDS: DULoxetine 30 MG (CYMBALTA) CAP PO SCH (09:02)
[2016-12-14] MEDS: ADVAIR HFA 115/21 MCG INHALER 8 GM IH SCH ×2 (09:47→23:05)
[2016-12-14 10:59] LABS: EHRLICHIA CHAFFEENSIS G ABY <1:16 (<1:16)
[2016-12-14 11:14] LABS: IGG ROCKY MOUNTAIN SPOTTED FEV <1:16 (<1:16); IGM ROCKY MOUNTAIN SPOTTED FEV <1:10 (<1:10)
--- NOTE | 2016-12-14 11:25 | Progress Note (SOAP) ---
Subjective Subjective/Events-last exam Afebrile, feeling much better. Having low back pain. Review of Systems Date Seen by Provider: Dec 14, 2016 Time Seen by Provider: 10:00 Objective Exam Last Set of Vital Signs Vital Signs Date Time Temp Pulse Resp B/P (MAP) Pulse Ox O2 Delivery O2 Flow Rate FiO2 12/14/16 08:42 98.1 76 20 133/66 91 Room Air 12/14/16 07:44 2.00 Capillary Refill : NONELess Than 3 Seconds I&O Intake and Output 12/15/16 00:00 Intake Total 600 ml Balance 600 ml Intake Oral 600 ml # Voids 1 General: Alert, No Acute Distress Lungs: Clear to Auscultation, Normal Air Movement Heart: Regular Rate, No Murmurs Abdomen: Normal Bowel Sounds, Soft Neuro: Normal Speech Psych/Mental Status: Mental Status NL Results/Procedures Lab Laboratory Tests 12/14/16 05:45: White Blood Count 7.4, Red Blood Count 3.20L, Hemoglobin 9.2L, Hematocrit 29L, Mean Corpuscular Volume 91, Mean Corpuscular Hemoglobin 29, Mean Corpuscular Hemoglobin Concent 32, Red Cell Distribution Width 13.5, Platelet Count 186, Mean Platelet Volume 10.3, Neutrophils (%) (Auto) 61, Lymphocytes (%) (Auto) 25 , Monocytes (%) (Auto) 11, Eosinophils (%) (Auto) 2, Basophils (%) (Auto) 1, Neutrophils # (Auto) 4.5, Lymphocytes # (Auto) 1.9, Monocytes # (Auto) 0.8, Eosinophils # (Auto) 0.1, Basophils # (Auto) 0.1, Sodium Level 145, Potassium Level 3.6, Chloride Level 113H, Carbon Dioxide Level 22, Anion Gap 10, Blood Urea Nitrogen 19H, Creatinine 1.16, Estimat Glomerular Filtration Rate 48, BUN/ Creatinine Ratio 16, Glucose Level 99, Calcium Level 8.5 Microbiology 12/12/16 Blood Culture - Preliminary, Resulted No growth 12/12/16 Urine Culture - Preliminary, Resulted Strep, Beta Hemolytic Group B See Comments Radiology CXR 12/12: Continued elevation of right hemidiaphragm, otherwise unremarkable CT head 12/12: Unremarkable Assessment/Plan Assessment/Plan Admission Dx Sepsis with unknown etiology, possible meningitis Chronic kidney disease HTN HLD Hypothyroidism Fibromyalgia Restless leg syndrome Plan Sepsis with unknown etiology, possible meningitis- febrile and with leukocytosis on admission, no clear evidence of pneumonia or UTI. Unable to obtain LP due to body habitus, started on presumptive treatment for possible meningitis -Improved labs overnight, will continue current antibiotics, tick panel and [place] virus serologies pending 12/14- Erlichia, RMSF, Lyme and tularemia neg, WNV serology pending. One blood culture with gram positive cocci. Clinically much improved, continue current antibiotics while waiting on further speciation from blood culture Chronic kidney disease- stable, monitor function and electrolytes, resume home furosemide HTN- hold home amlodipine and losartan with low end of normal BP currently HLD- resume home medications Hypothyroidism- resume home synthroid Fibromyalgia- resume home cymbalta, flexeril, amitriptyline, holding pregabalin as dose is above recommended for renal function, may need adjusted -Having back pain, will resume pregabalin but at BID instead of TID Restless leg syndrome- resume home med DVT ppx: enoxaparin Diagnosis/Problems: Clinical Quality Measures DVT/VTE Risk/Contraindication: Risk Factor Score Per Nursin RFS Level Per Nursing on Admit: 3=High GHULAM BURNETT MD Dec 14, 2016 11:24
[2016-12-14 12:00] VITALS: BP 138/65
[2016-12-14 16:35] VITALS: BP 130/67
[2016-12-14 20:00] VITALS: BP 113/56
[2016-12-14] MEDS: ENOXAPARIN 40 MG/0.4 ML (LOVENOX) SYR SC SCH (21:38)
[2016-12-14] MEDS: PREGABALIN 75 MG (LYRICA) CAP PO SCH (21:39)
[2016-12-14] MEDS: rOPINIRole 1 MG (REQUIP) TABLET PO SCH ×2 (21:39→23:27)
[2016-12-14] MEDS: cefTRIAXone INJECTION 1,000 MG in NS (IVPB) 50 ML IV SCH (21:39)
[2016-12-14] MEDS: AMITRIPTYLINE 50 MG (ELAVIL) TAB PO SCH (21:39)
[2016-12-14] MEDS: LEVOFLOXACIN 750 MG/D5W 150 ML PRE-MIX IV SCH (23:26)
[2016-12-14 23:51] VITALS: BP 140/62
[2016-12-15 04:00] VITALS: BP 110/68
[2016-12-15] MEDS: LEVOTHYROXINE 112 MCG (LEVOTHROID) TAB PO SCH (06:13)
[2016-12-15] MEDS: PANTOPRAZOLE 40 MG (PROTONIX) TAB PO SCH (06:13)
[2016-12-15] MEDS: LEVOTHYROXINE 25 MCG (LEVOTHROID) TAB PO SCH (06:13)
[2016-12-15] MEDS: NS IV 1000 ML 1,000 ML IV SCH ×3 (06:13→16:20)
[2016-12-15] MEDS: IBUPROFEN 600 MG (MOTRIN) TAB PO PRN ×2 (06:14→16:20)
[2016-12-15 06:25] LABS: MEAN PLATELET VOLUME 9.8 FL (7.4-10.4); RED BLOOD COUNT 3.2 10^6/uL (4.35-5.85); RED CELL DISTRIBUTION WIDTH 13.6 % (10.0-14.5); WHITE BLOOD COUNT 7.3 10^3/uL (4.3-11.0)
[2016-12-15 06:47] LABS: CALCIUM 8.6 MG/DL (8.5-10.1); CREATININE SERUM 1.17 MG/DL (0.60-1.30); POTASSIUM 3.6 MMOL/L (3.6-5.0)
[2016-12-15 07:04] LABS: WEST NILE IGG 0.56 Index (0.00-1.29); WEST NILE IGM 0.06 Index (0.00-0.89)
[2016-12-15] MEDS: ADVAIR HFA 115/21 MCG INHALER 8 GM IH SCH ×2 (07:42→20:22)
[2016-12-15 08:00] VITALS: BP 144/68
[2016-12-15] MEDS: FUROSEMIDE 40 MG (LASIX) TAB PO SCH (08:43)
[2016-12-15] MEDS: LORATADINE (CLARITIN) 10 MG TAB PO SCH (08:43)
[2016-12-15] MEDS: clonazePAM 1 MG (KlonoPIN) TAB PO SCH ×2 (08:43→20:47)
[2016-12-15] MEDS: FERROUS SULF 325 MG (IRON) TAB PO SCH (08:43)
[2016-12-15] MEDS: DULoxetine 30 MG (CYMBALTA) CAP PO SCH (08:43)
[2016-12-15] MEDS: PREGABALIN 75 MG (LYRICA) CAP PO SCH ×2 (08:43→20:47)
[2016-12-15] MEDS: OXcarbazepine (TRILEPTAL) 300 MG TAB PO SCH ×2 (08:43→20:47)
[2016-12-15] MEDS: FLUTICASONE NASAL SPRAY (FLONASE) 16 GM BTL NS SCH ×2 (08:44→20:48)
[2016-12-15] MEDS: GEMFIBROZIL 600 MG (LOPID) TAB PO SCH ×2 (08:44→20:47)
[2016-12-15] MEDS: ACETAMINOPHEN 500 MG TAB (TYLENOL) PO PRN (08:53)
[2016-12-15 12:00] VITALS: BP 148/62
--- NOTE | 2016-12-15 12:35 | Progress Note (SOAP) ---
Subjective Subjective/Events-last exam Afebrile, no acute events. Still has headache, but is feeling better. Review of Systems Date Seen by Provider: Dec 15, 2016 Time Seen by Provider: 11:30 Objective Exam Last Set of Vital Signs Vital Signs Date Time Temp Pulse Resp B/P (MAP) Pulse Ox O2 Delivery O2 Flow Rate FiO2 12/15/16 09:00 99 Nasal Cannula 2.00 12/15/16 08:00 98.2 86 18 144/68 Capillary Refill : NONELess Than 3 Seconds I&O Intake and Output 12/16/16 00:00 Intake Total 200 ml Output Total 400 ml Balance -200 ml Intake Oral 200 ml Output Urine Total 400 ml General: Alert, No Acute Distress Neuro: Normal Speech Psych/Mental Status: Mental Status NL Results/Procedures Lab Laboratory Tests 12/15/16 06:15: White Blood Count 7.3, Red Blood Count 3.20L, Hemoglobin 9.2L, Hematocrit 29L, Mean Corpuscular Volume 90, Mean Corpuscular Hemoglobin 29, Mean Corpuscular Hemoglobin Concent 32, Red Cell Distribution Width 13.6, Platelet Count 190, Mean Platelet Volume 9.8, Sodium Level 143, Potassium Level 3.6, Chloride Level 110H, Carbon Dioxide Level 22, Anion Gap 11, Blood Urea Nitrogen 13, Creatinine 1.17, Estimat Glomerular Filtration Rate 48, BUN/Creatinine Ratio 11, Glucose Level 102, Calcium Level 8.6 Microbiology 12/12/16 Blood Culture - Preliminary, Resulted No growth 12/12/16 Urine Culture - Final, Complete Strep, Beta Hemolytic Group B See Comments Radiology CXR 12/12: Continued elevation of right hemidiaphragm, otherwise unremarkable CT head 12/12: Unremarkable Assessment/Plan Assessment/Plan Admission Dx Sepsis with unknown etiology, possible meningitis Chronic kidney disease HTN HLD Hypothyroidism Fibromyalgia Restless leg syndrome Plan Sepsis with unknown etiology, possible meningitis- febrile and with leukocytosis on admission, no clear evidence of pneumonia or UTI. Unable to obtain LP due to body habitus, started on presumptive treatment for possible meningitis -Improved labs overnight, will continue current antibiotics, tick panel and [place] virus serologies pending -12/14- Erlichia, RMSF, Lyme and tularemia neg, WNV serology pending. One blood culture with gram positive cocci. Clinically much improved, continue current antibiotics while waiting on further speciation from blood culture -12/15 one blood culture positive for strep agalactiae, which is also present in urine, given this finding and her clinical picture, feel treatment for GBS meningitis is indicated- IV antibiotics for at least 14 days, will repeat blood cultures now and if negative at 48 hours, may be able to complete IV course outpatient. Stop levofloxacin and continue ceftriaxone Chronic kidney disease- stable, monitor function and electrolytes, resume home furosemide HTN- hold home amlodipine and losartan with low end of normal BP currently HLD- resume home medications Hypothyroidism- resume home synthroid Fibromyalgia- resume home cymbalta, flexeril, amitriptyline, holding pregabalin as dose is above recommended for renal function, may need adjusted -Having back pain, will resume pregabalin but at BID instead of TID Restless leg syndrome- resume home med DVT ppx: enoxaparin Diagnosis/Problems: Clinical Quality Measures DVT/VTE Risk/Contraindication: Risk Factor Score Per Nursin RFS Level Per Nursing on Admit: 3=High GHULAM BURNETT MD Dec 15, 2016 12:35
[2016-12-15 16:00] VITALS: BP 121/54
[2016-12-15] MEDS: ENOXAPARIN 40 MG/0.4 ML (LOVENOX) SYR SC SCH (20:48)
[2016-12-15] MEDS: rOPINIRole 1 MG (REQUIP) TABLET PO SCH ×2 (21:57→22:50)
[2016-12-15] MEDS: AMITRIPTYLINE 50 MG (ELAVIL) TAB PO SCH (21:57)
[2016-12-15] MEDS: cefTRIAXone INJECTION 1,000 MG in NS (IVPB) 50 ML IV SCH (21:57)
[2016-12-15 23:59] VITALS: BP 123/61
[2016-12-16] MEDS: NS IV 1000 ML 1,000 ML IV SCH ×2 (03:14→13:25)
[2016-12-16 04:00] VITALS: BP 160/72
[2016-12-16] MEDS: PANTOPRAZOLE 40 MG (PROTONIX) TAB PO SCH (05:36)
[2016-12-16] MEDS: LEVOTHYROXINE 112 MCG (LEVOTHROID) TAB PO SCH (05:36)
[2016-12-16] MEDS: LEVOTHYROXINE 25 MCG (LEVOTHROID) TAB PO SCH (05:36)
[2016-12-16] MEDS: ADVAIR HFA 115/21 MCG INHALER 8 GM IH SCH ×2 (07:06→21:18)
[2016-12-16 08:32] VITALS: BP 139/67
[2016-12-16] MEDS: FLUTICASONE NASAL SPRAY (FLONASE) 16 GM BTL NS SCH ×2 (10:26→20:02)
[2016-12-16] MEDS: clonazePAM 1 MG (KlonoPIN) TAB PO SCH ×2 (10:26→20:02)
[2016-12-16] MEDS: DULoxetine 30 MG (CYMBALTA) CAP PO SCH (10:26)
[2016-12-16] MEDS: PREGABALIN 75 MG (LYRICA) CAP PO SCH ×2 (10:26→20:02)
[2016-12-16] MEDS: FERROUS SULF 325 MG (IRON) TAB PO SCH (10:26)
[2016-12-16] MEDS: GEMFIBROZIL 600 MG (LOPID) TAB PO SCH ×2 (10:27→20:02)
[2016-12-16] MEDS: LORATADINE (CLARITIN) 10 MG TAB PO SCH (10:27)
[2016-12-16] MEDS: OXcarbazepine (TRILEPTAL) 300 MG TAB PO SCH ×2 (10:27→20:02)
[2016-12-16] MEDS: FUROSEMIDE 40 MG (LASIX) TAB PO SCH (10:27)
[2016-12-16 17:00] VITALS: BP 145/70
[2016-12-16 17:05] VITALS: BP 145/70
[2016-12-16] MEDS: ENOXAPARIN 40 MG/0.4 ML (LOVENOX) SYR SC SCH (20:02)
[2016-12-16] MEDS: AMITRIPTYLINE 50 MG (ELAVIL) TAB PO SCH (21:28)
[2016-12-16] MEDS: cefTRIAXone INJECTION 1,000 MG in NS (IVPB) 50 ML IV SCH (21:28)
[2016-12-16] MEDS: rOPINIRole 1 MG (REQUIP) TABLET PO SCH ×2 (21:29→22:32)
--- NOTE | 2016-12-16 21:48 | Progress Note (SOAP) ---
Subjective Subjective/Events-last exam patient doing well, no complaints, doesn't understand why she has to stay. Review of Systems Date Seen by Provider: Dec 16, 2016 Time Seen by Provider: 10:00 General: No Chills, No Night Sweats Objective Exam Last Set of Vital Signs Vital Signs Date Time Temp Pulse Resp B/P (MAP) Pulse Ox O2 Delivery O2 Flow Rate FiO2 12/16/16 21:19 93 Room Air 12/16/16 17:05 97.8 85 20 145/70 12/16/16 09:00 Capillary Refill : NONELess Than 3 Seconds I&O Intake and Output 12/17/16 00:00 Intake Total 4070 ml Output Total 2500 ml Balance 1570 ml Intake Oral 2070 ml IV Total 2000 ml Output Urine Total 2500 ml General: Alert, Oriented X3, Cooperative, No Acute Distress Lungs: Clear to Auscultation, Normal Air Movement Heart: Regular Rate, Normal S1, Normal S2, No Murmurs, Gallops, Rubs Abdomen: Normal Bowel Sounds, Soft, No Tenderness, No Hepatosplenomegaly, No Masses Extremities: No Clubbing, No Cyanosis, No Edema Psych/Mental Status: Mental Status NL, Mood NL Results/Procedures Lab Microbiology 12/15/16 Blood Culture - Preliminary, Resulted No growth 12/12/16 Urine Culture - Final, Complete Strep, Beta Hemolytic Group B See Comments Radiology CXR 12/12: Continued elevation of right hemidiaphragm, otherwise unremarkable CT head 12/12: Unremarkable Assessment/Plan Assessment/Plan Admission Dx Sepsis with unknown etiology, possible meningitis Chronic kidney disease HTN HLD Hypothyroidism Fibromyalgia Restless leg syndrome Plan Sepsis with unknown etiology, possible meningitis- febrile and with leukocytosis on admission, no clear evidence of pneumonia or UTI. Unable to obtain LP due to body habitus, started on presumptive treatment for possible meningitis -Improved labs overnight, will continue current antibiotics, tick panel and west nile virus serologies pending -12/14- Erlichia, RMSF, Lyme and tularemia neg, WNV serology pending. One blood culture with gram positive cocci. Clinically much improved, continue current antibiotics while waiting on further speciation from blood culture -12/15 one blood culture positive for strep agalactiae, which is also present in urine, given this finding and her clinical picture, feel treatment for GBS meningitis is indicated- IV antibiotics for at least 14 days, will repeat blood cultures now and if negative at 48 hours, may be able to complete IV course outpatient. Stop levofloxacin and continue ceftriaxone 12/16 - agree with planned treatment for 14 days w ceftriaxone. will plan DC on Sunday when we can set up home health and PICC or midline. no growth on BC as yet. 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 HTN- hold home amlodipine and losartan with low end of normal BP currently 12/16 - stable HLD- resume home medications Hypothyroidism- resume home synthroid Fibromyalgia- resume home cymbalta, flexeril, amitriptyline, holding pregabalin as dose is above recommended for renal function, may need adjusted -Having back pain, will resume pregabalin but at BID instead of TID Restless leg syndrome- resume home med DVT ppx: enoxaparin Diagnosis/Problems: Clinical Quality Measures DVT/VTE Risk/Contraindication: Risk Factor Score Per Nursin RFS Level Per Nursing on Admit: 3=High BUTCH REILLY MD Dec 16, 2016 9:48 pm
[2016-12-17] MEDS: NS IV 1000 ML 1,000 ML IV SCH ×2 (00:45→10:42)
[2016-12-17 00:46] VITALS: BP 124/66
[2016-12-17 05:43] LABS: MEAN PLATELET VOLUME 9.5 FL (7.4-10.4); RED BLOOD COUNT 3.18 10^6/uL (4.35-5.85); RED CELL DISTRIBUTION WIDTH 13.7 % (10.0-14.5); WHITE BLOOD COUNT 5.8 10^3/uL (4.3-11.0)
[2016-12-17 06:06] LABS: CALCIUM 8.5 MG/DL (8.5-10.1); CREATININE SERUM 1.27 MG/DL (0.60-1.30); POTASSIUM 3.4 MMOL/L (3.6-5.0)
[2016-12-17] MEDS: LEVOTHYROXINE 25 MCG (LEVOTHROID) TAB PO SCH (06:09)
[2016-12-17] MEDS: PANTOPRAZOLE 40 MG (PROTONIX) TAB PO SCH (06:09)
[2016-12-17] MEDS: LEVOTHYROXINE 112 MCG (LEVOTHROID) TAB PO SCH (06:09)
[2016-12-17] MEDS: ADVAIR HFA 115/21 MCG INHALER 8 GM IH SCH ×2 (07:17→19:29)
[2016-12-17] MEDS: DULoxetine 30 MG (CYMBALTA) CAP PO SCH (07:50)
[2016-12-17] MEDS: IBUPROFEN 600 MG (MOTRIN) TAB PO PRN (07:50)
[2016-12-17] MEDS: OXcarbazepine (TRILEPTAL) 300 MG TAB PO SCH ×2 (07:51→20:13)
[2016-12-17] MEDS: PREGABALIN 75 MG (LYRICA) CAP PO SCH ×2 (07:51→20:13)
[2016-12-17] MEDS: GEMFIBROZIL 600 MG (LOPID) TAB PO SCH ×2 (07:51→20:13)
[2016-12-17] MEDS: FERROUS SULF 325 MG (IRON) TAB PO SCH (07:51)
[2016-12-17] MEDS: FLUTICASONE NASAL SPRAY (FLONASE) 16 GM BTL NS SCH ×2 (07:51→20:13)
[2016-12-17] MEDS: LORATADINE (CLARITIN) 10 MG TAB PO SCH (07:51)
[2016-12-17] MEDS: clonazePAM 1 MG (KlonoPIN) TAB PO SCH ×2 (07:51→20:13)
[2016-12-17 08:31] VITALS: BP 147/76
[2016-12-17] MEDS: ACETAMINOPHEN 500 MG TAB (TYLENOL) PO PRN (10:52)
--- NOTE | 2016-12-17 12:12 | Progress Note (SOAP) ---
Subjective Subjective/Events-last exam pt doing well, still in isolation, no compalints today Review of Systems Date Seen by Provider: Dec 17, 2016 Time Seen by Provider: 10:30 Pulmonary: No Dyspnea Objective Exam Last Set of Vital Signs Vital Signs Date Time Temp Pulse Resp B/P (MAP) Pulse Ox O2 Delivery O2 Flow Rate FiO2 12/17/16 08:31 98.9 80 20 147/76 96 Room Air 12/16/16 09:00 Capillary Refill : NONELess Than 3 Seconds I&O Intake and Output 12/18/16 00:00 Intake Total 1300 ml Output Total 900 ml Balance 400 ml Intake Oral 300 ml IV Total 1000 ml Output Urine Total 900 ml # Bowel Movements 1 General: Alert, Oriented X3, Cooperative, No Acute Distress Lungs: Clear to Auscultation, Normal Air Movement Heart: Regular Rate, Normal S1, Normal S2, No Murmurs, Gallops, Rubs Abdomen: Normal Bowel Sounds, Soft, No Tenderness, No Hepatosplenomegaly, No Masses Extremities: No Clubbing, No Cyanosis, No Edema Neuro: Normal Speech, Normal Tone, Cranial Nerves 3-12 NL Psych/Mental Status: Mental Status NL, Mood NL Results/Procedures Lab Laboratory Tests 12/17/16 05:25: White Blood Count 5.8, Red Blood Count 3.18L, Hemoglobin 9.2L, Hematocrit 28L, Mean Corpuscular Volume 89, Mean Corpuscular Hemoglobin 29, Mean Corpuscular Hemoglobin Concent 32, Red Cell Distribution Width 13.7, Platelet Count 225, Mean Platelet Volume 9.5, Sodium Level 143, Potassium Level 3.4L, Chloride Level 110H, Carbon Dioxide Level 22, Anion Gap 11, Blood Urea Nitrogen 10, Creatinine 1.27, Estimat Glomerular Filtration Rate 43, BUN/Creatinine Ratio 8, Glucose Level 109H, Calcium Level 8.5 Microbiology 12/15/16 Blood Culture - Preliminary, Resulted No growth 12/12/16 Urine Culture - Final, Complete Strep, Beta Hemolytic Group B See Comments Radiology CXR 12/12: Continued elevation of right hemidiaphragm, otherwise unremarkable CT head 12/12: Unremarkable Assessment/Plan Assessment/Plan Admission Dx Sepsis with unknown etiology, possible meningitis Chronic kidney disease HTN HLD Hypothyroidism Fibromyalgia Restless leg syndrome Plan Sepsis with unknown etiology, possible meningitis- febrile and with leukocytosis on admission, no clear evidence of pneumonia or UTI. Unable to obtain LP due to body habitus, started on presumptive treatment for possible meningitis -Improved labs overnight, will continue current antibiotics, tick panel and west nile virus serologies pending -12/14- Erlichia, RMSF, Lyme and tularemia neg, WNV serology pending. One blood culture with gram positive cocci. Clinically much improved, continue current antibiotics while waiting on further speciation from blood culture -12/15 one blood culture positive for strep agalactiae, which is also present in urine, given this finding and her clinical picture, feel treatment for GBS meningitis is indicated- IV antibiotics for at least 14 days, will repeat blood cultures now and if negative at 48 hours, may be able to complete IV course outpatient. Stop levofloxacin and continue ceftriaxone 12/16 - agree with planned treatment for 14 days w ceftriaxone. will plan DC on Sunday when we can set up home health and PICC or midline. no growth on BC as yet. 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 12/17 - stable, DC IVF today HTN- hold home amlodipine and losartan with low end of normal BP currently 12/16 - stable 12/17 - no changes HLD- resume home medications Hypothyroidism- resume home synthroid Fibromyalgia- resume home cymbalta, flexeril, amitriptyline, holding pregabalin as dose is above recommended for renal function, may need adjusted -Having back pain, will resume pregabalin but at BID instead of TID Restless leg syndrome- resume home med DVT ppx: enoxaparin Diagnosis/Problems: Clinical Quality Measures DVT/VTE Risk/Contraindication: Risk Factor Score Per Nursin RFS Level Per Nursing on Admit: 3=High BUTCH REILLY MD Dec 17, 2016 12:12 pm
[2016-12-17 16:16] VITALS: BP 147/67
[2016-12-17] MEDS: ENOXAPARIN 40 MG/0.4 ML (LOVENOX) SYR SC SCH (20:13)
[2016-12-17] MEDS: cefTRIAXone INJECTION 1,000 MG in NS (IVPB) 50 ML IV SCH (21:23)
[2016-12-17] MEDS: rOPINIRole 1 MG (REQUIP) TABLET PO SCH ×2 (21:23→22:16)
[2016-12-17] MEDS: AMITRIPTYLINE 50 MG (ELAVIL) TAB PO SCH (21:23)
[2016-12-17 23:50] VITALS: BP 142/67
[2016-12-18] MEDS: LEVOTHYROXINE 112 MCG (LEVOTHROID) TAB PO SCH (05:32)
[2016-12-18] MEDS: LEVOTHYROXINE 25 MCG (LEVOTHROID) TAB PO SCH (05:32)
[2016-12-18] MEDS: PANTOPRAZOLE 40 MG (PROTONIX) TAB PO SCH (05:33)
[2016-12-18 05:57] LABS: MEAN PLATELET VOLUME 9.4 FL (7.4-10.4); RED BLOOD COUNT 3.4 10^6/uL (4.35-5.85); RED CELL DISTRIBUTION WIDTH 14.1 % (10.0-14.5); WHITE BLOOD COUNT 6.9 10^3/uL (4.3-11.0)
[2016-12-18 06:14] LABS: CALCIUM 8.9 MG/DL (8.5-10.1); CREATININE SERUM 1.35 MG/DL (0.60-1.30); POTASSIUM 3.5 MMOL/L (3.6-5.0)
[2016-12-18] MEDS: DULoxetine 30 MG (CYMBALTA) CAP PO SCH (07:36)
[2016-12-18] MEDS: FLUTICASONE NASAL SPRAY (FLONASE) 16 GM BTL NS SCH ×2 (07:37→22:05)
[2016-12-18] MEDS: GEMFIBROZIL 600 MG (LOPID) TAB PO SCH ×2 (07:37→22:07)
[2016-12-18] MEDS: clonazePAM 1 MG (KlonoPIN) TAB PO SCH ×2 (07:37→22:08)
[2016-12-18] MEDS: FERROUS SULF 325 MG (IRON) TAB PO SCH (07:37)
[2016-12-18] MEDS: OXcarbazepine (TRILEPTAL) 300 MG TAB PO SCH ×2 (07:37→22:07)
[2016-12-18] MEDS: PREGABALIN 75 MG (LYRICA) CAP PO SCH ×2 (07:37→17:59)
[2016-12-18] MEDS: LORATADINE (CLARITIN) 10 MG TAB PO SCH (07:37)
[2016-12-18 08:00] VITALS: BP 172/81
[2016-12-18] MEDS: ADVAIR HFA 115/21 MCG INHALER 8 GM IH SCH ×2 (09:21→21:01)
[2016-12-18 16:32] VITALS: BP 145/75
--- NOTE | 2016-12-18 16:53 | Progress Note (SOAP) ---
Subjective Subjective/Events-last exam pt states she is tired of being in hospital and is ready to leave Review of Systems Date Seen by Provider: Dec 18, 2016 Time Seen by Provider: 11:00 HEENT: No Head Aches Cardiovascular: No: Chest Pain, Palpitations Objective Exam Last Set of Vital Signs Vital Signs Date Time Temp Pulse Resp B/P (MAP) Pulse Ox O2 Delivery O2 Flow Rate FiO2 12/18/16 16:32 99.9 82 20 145/75 97 Room Air 12/16/16 09:00 Capillary Refill : NONELess Than 3 Seconds I&O Intake and Output 12/19/16 00:00 Intake Total 0 ml Output Total 700 ml Balance -700 ml Intake Oral 0 ml Output Urine Total 700 ml General: Alert, Oriented X3, Cooperative, No Acute Distress Lungs: Clear to Auscultation, Normal Air Movement Heart: Regular Rate, Normal S1, Normal S2, No Murmurs, Gallops, Rubs Abdomen: Normal Bowel Sounds, Soft, No Tenderness, No Hepatosplenomegaly, No Masses Extremities: No Clubbing, No Cyanosis, No Edema Neuro: Normal Speech, Strength at 5/5 X4 Ext, Normal Tone, Sensation Intact Psych/Mental Status: Mental Status NL, Mood NL Results/Procedures Lab Laboratory Tests 12/18/16 05:40: White Blood Count 6.9, Red Blood Count 3.40L, Hemoglobin 9.7L, Hematocrit 31L, Mean Corpuscular Volume 90, Mean Corpuscular Hemoglobin 29, Mean Corpuscular Hemoglobin Concent 32, Red Cell Distribution Width 14.1, Platelet Count 255, Mean Platelet Volume 9.4, Sodium Level 143, Potassium Level 3.5L, Chloride Level 108H, Carbon Dioxide Level 22, Anion Gap 13, Blood Urea Nitrogen 11, Creatinine 1.35H, Estimat Glomerular Filtration Rate 40, BUN/Creatinine Ratio 8 , Glucose Level 106H, Calcium Level 8.9 Microbiology 12/15/16 Blood Culture - Preliminary, Resulted No growth 12/12/16 Urine Culture - Final, Complete Strep, Beta Hemolytic Group B See Comments Radiology CXR 12/12: Continued elevation of right hemidiaphragm, otherwise unremarkable CT head 12/12: Unremarkable Assessment/Plan Assessment/Plan Admission Dx Sepsis with unknown etiology, possible meningitis Chronic kidney disease HTN HLD Hypothyroidism Fibromyalgia Restless leg syndrome Plan Sepsis with unknown etiology, possible meningitis- febrile and with leukocytosis on admission, no clear evidence of pneumonia or UTI. Unable to obtain LP due to body habitus, started on presumptive treatment for possible meningitis -Improved labs overnight, will continue current antibiotics, tick panel and west nile virus serologies pending -12/14- Erlichia, RMSF, Lyme and tularemia neg, WNV serology pending. One blood culture with gram positive cocci. Clinically much improved, continue current antibiotics while waiting on further speciation from blood culture -12/15 one blood culture positive for strep agalactiae, which is also present in urine, given this finding and her clinical picture, feel treatment for GBS meningitis is indicated- IV antibiotics for at least 14 days, will repeat blood cultures now and if negative at 48 hours, may be able to complete IV course outpatient. Stop levofloxacin and continue ceftriaxone 12/16 - agree with planned treatment for 14 days w ceftriaxone. will plan DC on Sunday when we can set up home health and PICC or midline. no growth on BC as yet. 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 12/17 - stable, DC IVF today 12/18 - GFR was artificially elevated, continue to monitor for now HTN- hold home amlodipine and losartan with low end of normal BP currently 12/16 - stable 12/17 - no changes 12/18 - stable HLD- resume home medications Hypothyroidism- resume home synthroid Fibromyalgia- resume home cymbalta, flexeril, amitriptyline, holding pregabalin as dose is above recommended for renal function, may need adjusted -Having back pain, will resume pregabalin but at BID instead of TID Restless leg syndrome- resume home med DVT ppx: enoxaparin Diagnosis/Problems: Clinical Quality Measures DVT/VTE Risk/Contraindication: Risk Factor Score Per Nursin RFS Level Per Nursing on Admit: 3=High BUTCH REILLY MD Dec 18, 2016 4:53 pm
[2016-12-18] MEDS: KCL 10 MEQ TAB (MICRO K) PO SCH (17:55)
[2016-12-18] MEDS: FUROSEMIDE 40 MG (LASIX) TAB PO SCH (17:55)
[2016-12-18] MEDS: ENOXAPARIN 40 MG/0.4 ML (LOVENOX) SYR SC SCH (22:06)
[2016-12-18] MEDS: cefTRIAXone INJECTION 1,000 MG in NS (IVPB) 50 ML IV SCH (22:06)
[2016-12-18] MEDS: rOPINIRole 1 MG (REQUIP) TABLET PO SCH ×2 (22:07→23:22)
[2016-12-18] MEDS: ACETAMINOPHEN 500 MG TAB (TYLENOL) PO PRN (22:07)
[2016-12-18] MEDS: AMITRIPTYLINE 50 MG (ELAVIL) TAB PO SCH (22:08)
[2016-12-19] VITALS: BP 130/60
[2016-12-19] MEDS: PANTOPRAZOLE 40 MG (PROTONIX) TAB PO SCH (05:49)
[2016-12-19] MEDS: LEVOTHYROXINE 25 MCG (LEVOTHROID) TAB PO SCH (05:49)
[2016-12-19] MEDS: LEVOTHYROXINE 112 MCG (LEVOTHROID) TAB PO SCH (05:49)
[2016-12-19] MEDS: KCL 10 MEQ TAB (MICRO K) PO SCH (05:49)
[2016-12-19 05:59] LABS: MEAN PLATELET VOLUME 9.6 FL (7.4-10.4); RED BLOOD COUNT 3.44 10^6/uL (4.35-5.85); RED CELL DISTRIBUTION WIDTH 14.2 % (10.0-14.5); WHITE BLOOD COUNT 9.3 10^3/uL (4.3-11.0)
[2016-12-19 06:16] LABS: CALCIUM 9.1 MG/DL (8.5-10.1); CREATININE SERUM 1.41 MG/DL (0.60-1.30); POTASSIUM 3.5 MMOL/L (3.6-5.0)
[2016-12-19] MEDS: ADVAIR HFA 115/21 MCG INHALER 8 GM IH SCH (07:11)
[2016-12-19 08:00] VITALS: BP 132/79
[2016-12-19] MEDS: FERROUS SULF 325 MG (IRON) TAB PO SCH (08:22)
[2016-12-19] MEDS: FLUTICASONE NASAL SPRAY (FLONASE) 16 GM BTL NS SCH (09:28)
[2016-12-19] MEDS: PREGABALIN 75 MG (LYRICA) CAP PO SCH (09:29)
[2016-12-19] MEDS: DULoxetine 30 MG (CYMBALTA) CAP PO SCH (09:29)
[2016-12-19] MEDS: clonazePAM 1 MG (KlonoPIN) TAB PO SCH (09:29)
[2016-12-19] MEDS: OXcarbazepine (TRILEPTAL) 300 MG TAB PO SCH (09:29)
[2016-12-19] MEDS: LORATADINE (CLARITIN) 10 MG TAB PO SCH (09:29)
[2016-12-19] MEDS: FUROSEMIDE 40 MG (LASIX) TAB PO SCH (09:29)
[2016-12-19] MEDS: GEMFIBROZIL 600 MG (LOPID) TAB PO SCH (09:29)
--- NOTE | 2016-12-19 11:20 | Discharge Instructions ---
Discharge [facility] Discharge Medications New, Converted or Re-Newed RX: Other Continued Medications: Albuterol Sulfate (Proventil Hfa) 6.7 Gm Hfa.aer.ad 2 PUFF IH Q4H PRN for SHORTNESS OF BREATH, INHALER Amitriptyline HCl (Amitriptyline HCl) 100 Mg Tablet 100 MG PO 2200, TAB Amlodipine Besylate (Amlodipine Besylate) 10 Mg Tablet 10 MG PO DAILY, TAB Budesonide/Formoterol Fumarate (Symbicort 160-4.5 Mcg Inhaler) 10.2 Gm Hfa.aer.ad 2 PUFF IH BID PRN for SHORTNESS OF BREATH, INHALER Cetirizine HCl (Zyrtec) 10 Mg Tablet 10 MG PO DAILY, TAB Clonazepam (Clonazepam) 1 Mg Tablet 1 MG PO BID, TAB Cyclobenzaprine HCl (Cyclobenzaprine HCl) 10 Mg Tablet 10 MG PO HS PRN for MUSCLE SPASMS, TAB Diclofenac Sodium (Diclofenac Sodium) 100 Gm Gel..gram. 2 GM TOP BID PRN for JOINT PAIN, EACH Duloxetine HCl (Cymbalta) 60 Mg Capsule.dr 60 MG PO DAILY, CAP Ergocalciferol (Vitamin D2) (Drisdol) 50,000 Unit Capsule 55341 UNIT PO Mo, CAP Ferrous Sulfate (Iron) 325 Mg Tablet 325 MG PO DAILY, TAB Fluticasone Propionate (Fluticasone Propionate) 16 Gm [place].susp 1 SPRAYS NS BID, EA Furosemide (Furosemide) 40 Mg Tablet 40 MG PO DAILY, TAB Gemfibrozil (Gemfibrozil) 600 Mg Tablet 600 MG PO BID, TAB Levothyroxine Sodium (Levothyroxine Sodium) 137 Mcg Tablet 137 MCG PO DAILY, TAB Losartan Potassium (Losartan Potassium) 100 Mg Tablet 100 MG PO DAILY, TAB Metoprolol Succinate (Metoprolol Succinate) 50 Mg Tab.er.24h 50 MG PO TID, TAB Nystatin (Nystatin) 100,000 Unit/1 Ml Oral.susp 4 ML MM QID PRN for THRUSH, EA SWISH AND SPIT Nystatin (Nystatin) 15 Gm Cream..g. TOP BID PRN for RASH, EA [place] 3 Polyunsat Fatty Acids (Fish Oil) 1,000 Mg Cap 1000 MG PO BID, CAP Oxcarbazepine (Oxcarbazepine) 300 Mg Tablet 300 MG PO BID, TAB Pantoprazole Sodium (Protonix) 40 Mg Tablet.dr 40 MG PO DAILY, TAB Potassium Chloride (Potassium Chloride) 10 Meq Capsule.er 10 MEQ PO DAILY, CAP Pregabalin (Lyrica) 150 Mg Capsule 150 MG PO TID, CAP LAST FILLED #90 [id number] Ropinirole HCl (Ropinirole HCl) 4 Mg Tablet 4 MG PO 2200,2230, TAB [Power-C] () 2 TAB.CHEW PO TID, TAB.CHEW VITAMIN C ASCORBIC ACID AND SODIUM ASCORBATE 240MG EACH Patient Instructions Goal/Follow Up Appt: -KEEP YOUR APPOINTMENT WITH ISABEL MAE APRN SCHEDULED Patient Instructions: YOU NEED TO COME TO [facility] IN [place] FOR A ROCEPHIN INJECTION ON SUNDAY, SUNDAY, AND SUNDAY MORNINGS. THIS IS TO COMPLETE YOUR ANTIBIOTIC TREATMENT FOR STREPTOCOCCAL MENINGITIS. IT IS VERY IMPORTANT THAT YOU COME. WHEN YOU CHECK IN, ASK FOR A NURSE VISIT; YOU WILL NOT HAVE AN APPOINTMENT WITH ISABEL FOR THIS. YOU WILL ONLY SEE THE NURSE. Return to The Hospital For: FEVER, LETHARGY Activity & Diet Discharge Diet: No Restrictions Activity as Tolerated: Yes Copy Copies To 1: BUTCH BOSS APRN, MD Dec 19, 2016 11:20 am
--- NOTE | 2016-12-19 11:21 | Discharge Summary ---
Diagnosis/Chief Complaint Date of Admission Dec 12, 2016 at 10:33 pm Date of Discharge Admission Diagnosis Admission Diagnosis Sepsis with unknown etiology, possible meningitis Chronic kidney disease HTN HLD Hypothyroidism Fibromyalgia Restless leg syndrome Chief Complaint/HPI Chief Complaint/HPI 56 yo female presented to ER after being sent from clinic due to fever of 103 and lethargy and concern for sepsis. She states she has not been feeling well for about a week and over the weekend started to feel extremely ill with chills , dizziness, diarrhea and vomiting. She then developed headache and neck pain/ stiffness. She denies recent travel or known tick or mosquito exposure. She admits a little discomfort with urination, but states this a common problem for her. She does feel she has had some trouble concentrating or thinking of words, but also admits this is chronic for her and she has even confided to her therapist that she is concerned about Alzheimer disease. Discharge Summary-Simple/Stand Consultations Discharge Physical Examination Allergies: Coded Allergies: No Known Drug Allergies (Unverified , 09/29/15) Vitals & I&Os Vital Sign - Last 12Hours Date Time Temp Pulse Resp B/P (MAP) Pulse Ox O2 Delivery O2 Flow Rate FiO2 12/19/16 08:00 97.3 86 18 132/79 94 Room Air 12/16/16 09:00 Hospital Course See final discharge diagnosis. Radiology Reviewed CXR 12/12: Continued elevation of right hemidiaphragm, otherwise unremarkable CT head 12/12: Unremarkable Discharge Instructions to patient/family Please see electonic discharge instructions given to patient. Discharge Medications Reviewed and agree with Discharge Medication list on patient's Discharge Instruction sheet Clinical Quality Measures DVT/VTE Risk/Contraindication: Risk Factor Score Per Nursin RFS Level Per Nursing on Admit: 3=High BUTCH REILLY MD Dec 19, 2016 11:21 am
[2016-12-19 11:50] VITALS: BP 132/79
== END 2016-12-19 11:50 | disposition home or self-care (01) | DRG 871 ==
LOC: EDUNIT# 18:49 → ER 18:51 → 4TH 22:33
PROVIDERS: ADMIT Family Medicine; ATTEND Family Medicine
DX: A40.1 Sepsis due to streptococcus, group B (principal); G00.2 Streptococcal meningitis; J45.909 Unspecified asthma, uncomplicated; E78.00 Pure hypercholesterolemia, unspecified; I12.9 Hypertensive chronic kidney disease with stage 1 through stage 4 chronic kidney disease, or unspecified chronic kidney disease; N18.9 Chronic kidney disease, unspecified; I34.1 Nonrheumatic mitral (valve) prolapse; K21.9 Gastro-esophageal reflux disease without esophagitis; M79.7 Fibromyalgia; M19.91 Primary osteoarthritis, unspecified site; E03.9 Hypothyroidism, unspecified; F41.9 Anxiety disorder, unspecified; F32.9 Major depressive disorder, single episode, unspecified; E78.5 Hyperlipidemia, unspecified; G25.81 Restless legs syndrome
CPT/HCPCS: 36415; 70450; 71010; 80048; 80053; 81000; 83605; 85007; 85025; 85027; 85610; 85730; 86618; 86666; 86668; 86757; 86788; 86789; 87040; 87088; 94640; 94760; 96361; 96374; 96375

== ENCOUNTER 2017-01-29 21:45 | Outpatient (CLI) | payer MEDICAID, MEDICARE ==
[~2017-01-29 21:45] MED LIST changes: +CYCL10TA9 PO; +DICL100G31 TOP; +FLUT16SP22 NS; +GEMF600T3 PO; +LEVO137T2 PO; +NYST15CR TOP; +OXCA300T PO; +ROPI4TAB3 PO
== END 2017-01-30 07:20 | disposition home or self-care (01) ==
LOC: SLEEP 21:45
PROVIDERS: ATTEND Nurse Practitioner
DX: G47.33 Obstructive sleep apnea (adult) (pediatric) (principal); G47.10 Hypersomnia, unspecified; G47.36 Sleep related hypoventilation in conditions classified elsewhere
CPT/HCPCS: 95811

== ENCOUNTER 2017-04-28 23:26 | Emergency (ER) | payer OTHER, MEDICARE, MEDICAID ==
[~2017-04-28] VITALS: Ht 160 cm; Wt 103.0 kg
[~2017-04-28 23:26] MED LIST changes: -METO-272 PO; +METO-370 PO
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
[2017-04-29] MEDS ORDERED: ORPHENADRINE 60 MG/2 ML (NORFLEX) AMP IM STA (01:09)
[2017-04-29] MEDS ORDERED: KETOROLAC 60 MG/2 ML VIAL IM STA (01:09)
[2017-04-29 01:27] VITALS: BP 109/60
--- NOTE | 2017-04-29 07:35 | Diagnostic Imaging Report ---
INDICATION: Left shoulder pain, injury COMPARISON: None FINDINGS: 3 views of the left shoulder demonstrate no fracture or dislocation. Articular surfaces are age-appropriate. IMPRESSION: No fracture or dislocation Dictated by: Dictated on workstation # [id number]
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
== END 2017-04-29 01:27 | disposition home or self-care (01) ==
LOC: EDUNIT# 23:26 → ER 23:30
DX: S16.1XXA Strain of muscle, fascia and tendon at neck level, initial encounter (principal); S46.912A Strain of unspecified muscle, fascia and tendon at shoulder and upper arm level, left arm, initial encounter; F41.9 Anxiety disorder, unspecified; F32.9 Major depressive disorder, single episode, unspecified; E03.9 Hypothyroidism, unspecified; K21.9 Gastro-esophageal reflux disease without esophagitis; E78.00 Pure hypercholesterolemia, unspecified; I10 Essential (primary) hypertension; J45.909 Unspecified asthma, uncomplicated; V47.5XXA Car driver injured in collision with fixed or stationary object in traffic accident, initial encounter
CPT/HCPCS: 70450; 72125; 73030; 99284

== ENCOUNTER → 2017-06-25 | Outpatient (CLI) | payer MEDICARE, MEDICAID ==
[~2017-06-25] MED LIST changes: +ACET-2267 PO; +AMLO5TAB2 PO; +ASPI-808 PO; +ASPI-983 PO; +BACL10TA PO; +BUDE10.22 INH; +DULO60CA58 PO; +ERGO50006 PO; +FISH1CAP15 PO; +LEVO150T6 PO; +NFIPRATRNS NS; +OXYC-465 PO; +OXYC-471 PO; +PANT40TA3 PO; +POTA10TA10 PO; +PSYL0.526 PO; +RT-ALBUINH INH; +TOPI100T11 PO
[2017-06-25 14:51] LABS: BILIRUBIN,URINE NEGATIVE (NEGATIVE); CLARITY,URINE CLEAR; COLOR,URINE YELLOW; GLUCOSE, URINE (UA) NEGATIVE (NEGATIVE); KETONES,URINE NEGATIVE (NEGATIVE); LEUKOCYTE ESTERASE ,URINE 3+ (NEGATIVE); NITRITE,URINE NEGATIVE (NEGATIVE); PH,URINE 6 (5-9); PROTEIN,URINE 1+ (NEGATIVE); UROBILINOGEN,URINE NORMAL (NORMAL)
[2017-06-25 15:13] LABS: BACTERIA,URINE FEW /HPF
== END ==
LOC: LAB 14:30
PROVIDERS: ATTEND Internal Medicine Nephrology
DX: I12.9 Hypertensive chronic kidney disease with stage 1 through stage 4 chronic kidney disease, or unspecified chronic kidney disease (principal); D63.1 Anemia in chronic kidney disease; N18.4 Chronic kidney disease, stage 4 (severe); E87.3 Alkalosis; E87.5 Hyperkalemia; N25.81 Secondary hyperparathyroidism of renal origin; R80.9 Proteinuria, unspecified; E55.9 Vitamin D deficiency, unspecified; E78.5 Hyperlipidemia, unspecified; E61.1 Iron deficiency; E87.2 Acidosis; N17.9 Acute kidney failure, unspecified
CPT/HCPCS: 81000; 87077; 87088

== ENCOUNTER → 2017-06-28 | Outpatient (CLI) | payer MEDICARE, MEDICAID | LOC: CARD 11:21 | PROVIDERS: ATTEND Physician Assistant | DX: I25.10 Atherosclerotic heart disease of native coronary artery without angina pectoris (principal); I10 Essential (primary) hypertension; R00.2 Palpitations; R42 Dizziness and giddiness; I07.1 Rheumatic tricuspid insufficiency | CPT/HCPCS: 93306 ==

== ENCOUNTER → 2017-07-17 | Outpatient (CLI) | payer MEDICARE, MEDICAID | LOC: LAB 16:30 | PROVIDERS: ATTEND Internal Medicine Nephrology | DX: E87.2 Acidosis (principal); E87.3 Alkalosis; I12.9 Hypertensive chronic kidney disease with stage 1 through stage 4 chronic kidney disease, or unspecified chronic kidney disease; N18.4 Chronic kidney disease, stage 4 (severe); N25.81 Secondary hyperparathyroidism of renal origin; R80.9 Proteinuria, unspecified; E55.9 Vitamin D deficiency, unspecified; D63.1 Anemia in chronic kidney disease; E78.5 Hyperlipidemia, unspecified; E61.1 Iron deficiency; N17.9 Acute kidney failure, unspecified | CPT/HCPCS: 87077; 87088 ==

== ENCOUNTER → 2017-07-24 | Outpatient (CLI) | payer MEDICARE, MEDICAID ==
[2017-07-24 17:36] LABS: ALBUMIN 4.6 GM/DL (3.2-4.5); CALCIUM 9.8 MG/DL (8.5-10.1); CREATININE SERUM 1.29 MG/DL (0.60-1.30); PHOSPHORUS 3.8 MG/DL (2.3-4.7); POTASSIUM 3.7 MMOL/L (3.6-5.0)
== END ==
LOC: LAB 16:51
PROVIDERS: ATTEND Internal Medicine Nephrology
DX: E87.3 Alkalosis (principal); I12.9 Hypertensive chronic kidney disease with stage 1 through stage 4 chronic kidney disease, or unspecified chronic kidney disease; N18.4 Chronic kidney disease, stage 4 (severe); E87.5 Hyperkalemia; N25.81 Secondary hyperparathyroidism of renal origin; R80.9 Proteinuria, unspecified; E55.9 Vitamin D deficiency, unspecified; D63.1 Anemia in chronic kidney disease; E78.5 Hyperlipidemia, unspecified; E61.1 Iron deficiency; E87.2 Acidosis; N17.9 Acute kidney failure, unspecified
CPT/HCPCS: 36415; 80069

== ENCOUNTER → 2017-08-16 | Outpatient (CLI) | payer MEDICARE, MEDICAID | LOC: RAD 08:38 | PROVIDERS: ATTEND Nurse Practitioner Family | DX: Z53.9 Procedure and treatment not carried out, unspecified reason (principal) ==

== ENCOUNTER → 2017-09-21 | Outpatient (CLI) | payer MEDICARE, MEDICAID ==
[2017-09-21 17:24] LABS: BILIRUBIN,URINE NEGATIVE (NEGATIVE); CLARITY,URINE SLIGHTLY CLOUDY; COLOR,URINE YELLOW; GLUCOSE, URINE (UA) NEGATIVE (NEGATIVE); KETONES,URINE NEGATIVE (NEGATIVE); LEUKOCYTE ESTERASE ,URINE 3+ (NEGATIVE); NITRITE,URINE NEGATIVE (NEGATIVE); PH,URINE 6 (5-9); PROTEIN,URINE NEGATIVE (NEGATIVE); UROBILINOGEN,URINE NORMAL (NORMAL)
[2017-09-21 17:36] LABS: BACTERIA,URINE LARGE /HPF; WBC,URINE >100 /HPF
[2017-09-21 17:45] LABS: ALBUMIN 4.7 GM/DL (3.2-4.5); CALCIUM 10.1 MG/DL (8.5-10.1); CREATININE SERUM 1.39 MG/DL (0.60-1.30); PHOSPHORUS 4.6 MG/DL (2.3-4.7); POTASSIUM 3.4 MMOL/L (3.6-5.0)
== END ==
LOC: LAB 16:40
PROVIDERS: ATTEND Nurse Practitioner
DX: N18.4 Chronic kidney disease, stage 4 (severe) (principal); E87.3 Alkalosis; E87.5 Hyperkalemia; N25.81 Secondary hyperparathyroidism of renal origin; R80.9 Proteinuria, unspecified; E55.9 Vitamin D deficiency, unspecified; D63.1 Anemia in chronic kidney disease; E78.5 Hyperlipidemia, unspecified; I12.9 Hypertensive chronic kidney disease with stage 1 through stage 4 chronic kidney disease, or unspecified chronic kidney disease; E61.1 Iron deficiency; E87.2 Acidosis; R82.90 Unspecified abnormal findings in urine
CPT/HCPCS: 36415; 80069; 81000; 82306; 82728; 83540; 83970; 87077; 87088; 87186

== ENCOUNTER → 2017-10-15 | Outpatient (CLI) | payer MEDICARE, MEDICAID ==
[~2017-10-15] MED LIST changes: -CLON1TAB3 PO; +CLON1TAB4 PO; -GEMF600T3 PO; +GEMF600T4 PO; +NYST1000 PO; +NYST15CR TP
--- NOTE | 2017-10-15 14:05 | Diagnostic Imaging Report ---
INDICATION: Routine screening. COMPARISON: 10/13/2016 and 09/23/2015. TECHNIQUE: 2D and 3D bilateral screening mammography was performed with CAD. FINDINGS: Scattered fibroglandular densities are identified bilaterally. The parenchymal pattern is stable. No mass or malignant appearing microcalcifications are seen. The axillae are unremarkable. IMPRESSION: No mammographic features suspicious for malignancy are identified. ACR BI-RADS Category 1: Negative. Result letter will be mailed to the patient. Note: At least 10% of breast cancer is not imaged by mammography. Dictated by: Dictated on workstation # [id number]
== END ==
LOC: RAD 08:38
PROVIDERS: ATTEND Nurse Practitioner Primary Care
DX: Z12.31 Encounter for screening mammogram for malignant neoplasm of breast (principal)
CPT/HCPCS: 77067

== ENCOUNTER 2017-10-18 14:45 | Outpatient (RCR) | payer MEDICARE, MEDICAID ==
[2017-10-10 15:45] VITALS: BP 114/63
[2017-10-10] MEDS: IRON SUCROSE 200 MG/10 ML (VENOFER) VIAL IV SCH ×2 (15:56→16:18)
[2017-10-10] MEDS: ACETAMINOPHEN 500 MG TAB (TYLENOL) PO PRN (16:19)
[2017-10-10 16:20] VITALS: BP 114/63
[2017-10-12 14:00] VITALS: BP 127/89
[2017-10-12] MEDS: IRON SUCROSE 200 MG/10 ML (VENOFER) VIAL IV SCH (14:22)
[2017-10-15 13:45] VITALS: BP 117/60
[2017-10-15] MEDS: IRON SUCROSE 200 MG/10 ML (VENOFER) VIAL IV SCH (14:00)
[2017-10-15] MEDS: ACETAMINOPHEN 500 MG TAB (TYLENOL) PO PRN (14:00)
[2017-10-15 14:25] VITALS: BP 117/60
[~2017-10-18] VITALS: Ht 157.5 cm; Wt 107.1 kg
[~2017-10-18 14:45] MED LIST changes: +IRON SUCROSE 200 MG/10 ML (VENOFER) VIAL IV ONE; +diphenhydrAMINE 50 MG/ML INJ (BENADRYL) IV PRN
[2017-10-18 14:55] VITALS: BP 121/64
[2017-10-18] MEDS: IRON SUCROSE 200 MG/10 ML (VENOFER) VIAL IV SCH (14:55)
[2017-10-22 15:15] VITALS: BP 107/49
[2017-10-22] MEDS: IRON SUCROSE 200 MG/10 ML (VENOFER) VIAL IV SCH (15:46)
[2017-10-22 16:19] VITALS: BP 107/49
== END 2017-10-22 16:15 | disposition home or self-care (01) ==
LOC: SDC 14:45
PROVIDERS: ATTEND Internal Medicine Nephrology
DX: D50.9 Iron deficiency anemia, unspecified (principal); N18.4 Chronic kidney disease, stage 4 (severe); Z79.899 Other long term (current) drug therapy
CPT/HCPCS: 96365; 96374

== ENCOUNTER → 2017-10-26 | Outpatient (CLI) | payer MEDICARE, MEDICAID ==
[~2017-10-26] MED LIST changes: +GEMF600T3 PO; -GEMF600T4 PO; -IRON SUCROSE 200 MG/10 ML (VENOFER) VIAL IV ONE; -diphenhydrAMINE 50 MG/ML INJ (BENADRYL) IV PRN
--- NOTE | 2017-10-26 10:16 | Diagnostic Imaging Report ---
PROCEDURE: CT chest without contrast. TECHNIQUE: Multiple contiguous axial images were obtained through the chest without the use of intravenous contrast. INDICATION: Pleural effusion and followup. COMPARISON: Comparison is made with prior CT chest from 06/02/2017. FINDINGS: No axillary lymphadenopathy is seen. Evaluation of the mediastinum and kenan is limited without intravenous contrast. Density in the right paratracheal region does appear larger when compared with prior exam with short axis measurement of 14 mm compared with 11 mm. No other suspicious mediastinal lymphadenopathy is seen. No hilar abnormality is identified. No pericardial fluid is seen. The previously noted pleural effusions have resolved. Lungs remain clear. No infiltrates are seen. No nodule or mass is detected. The upper abdomen is unremarkable. IMPRESSION: The study is limited without intravenous contrast. There is an enlarging density in the right paratracheal location when compared with prior CT from 06/02/2017 which may represent an enlarging node. No other abnormalities are seen. PET/CT may be useful for further evaluation. Dictated by: Dictated on workstation # [id number]
== END ==
LOC: RAD 09:24
PROVIDERS: ATTEND Nurse Practitioner Family
DX: J90 Pleural effusion, not elsewhere classified (principal)
CPT/HCPCS: 71250

== ENCOUNTER → 2017-12-20 | Outpatient (CLI) | payer MEDICARE, MEDICAID ==
[~2017-12-20] MED LIST changes: -AMLO10TA2 PO; +AMLO10TA6 PO; -AMLO5TAB2 PO; +AMLO5TAB7 PO; +CLON1TAB13 PO; -CLON1TAB4 PO; -GEMF600T3 PO; +GEMF600T4 PO; -LOSA100T28 PO; +LOSA100T8 PO; -OXCA300T PO; +OXCA300T18 PO; -ROPI4TAB3 PO; +ROPI4TAB5 PO
[2017-12-20 17:30] LABS: HEMOGLOBIN 12.4 G/DL (11.5-16.0); MEAN PLATELET VOLUME 10.2 FL (7.4-10.4); RED BLOOD COUNT 3.87 10^6/uL (4.35-5.85); RED CELL DISTRIBUTION WIDTH 13.9 % (10.0-14.5); WHITE BLOOD COUNT 6.1 10^3/uL (4.3-11.0)
[2017-12-20 17:45] LABS: ALBUMIN 4.4 GM/DL (3.2-4.5); CALCIUM 9.6 MG/DL (8.5-10.1); CREATININE SERUM 1.17 MG/DL (0.60-1.30); PHOSPHORUS 4.2 MG/DL (2.3-4.7); POTASSIUM 3.8 MMOL/L (3.6-5.0)
[2017-12-20 17:56] LABS: BILIRUBIN,URINE NEGATIVE (NEGATIVE); CLARITY,URINE CLEAR; COLOR,URINE YELLOW; GLUCOSE, URINE (UA) NEGATIVE (NEGATIVE); KETONES,URINE NEGATIVE (NEGATIVE); LEUKOCYTE ESTERASE ,URINE 3+ (NEGATIVE); NITRITE,URINE NEGATIVE (NEGATIVE); PH,URINE 5 (5-9); PROTEIN,URINE NEGATIVE (NEGATIVE); UROBILINOGEN,URINE NORMAL (NORMAL)
[2017-12-20 18:09] LABS: BACTERIA,URINE TRACE /HPF
== END ==
LOC: LAB 17:06
PROVIDERS: ATTEND Internal Medicine Nephrology
DX: E61.1 Iron deficiency (principal); E55.9 Vitamin D deficiency, unspecified; E87.3 Alkalosis; N18.4 Chronic kidney disease, stage 4 (severe); E87.5 Hyperkalemia; N25.81 Secondary hyperparathyroidism of renal origin; R80.9 Proteinuria, unspecified; D63.1 Anemia in chronic kidney disease; E78.5 Hyperlipidemia, unspecified; I12.9 Hypertensive chronic kidney disease with stage 1 through stage 4 chronic kidney disease, or unspecified chronic kidney disease; E87.2 Acidosis; N17.9 Acute kidney failure, unspecified
CPT/HCPCS: 36415; 80069; 81000; 82306; 82570; 82728; 83540; 83970; 84156; 85027

== ENCOUNTER → 2018-02-04 | Outpatient (CLI) | payer MEDICARE, MEDICAID ==
[2018-02-04 11:40] LABS: HEMOGLOBIN 12.4 G/DL (11.5-16.0); MEAN PLATELET VOLUME 10.7 FL (7.4-10.4); RED BLOOD COUNT 3.92 10^6/uL (4.35-5.85); RED CELL DISTRIBUTION WIDTH 13.1 % (10.0-14.5); WHITE BLOOD COUNT 7.1 10^3/uL (4.3-11.0)
[2018-02-04 11:44] LABS: BILIRUBIN,URINE NEGATIVE (NEGATIVE); CLARITY,URINE CLEAR; COLOR,URINE YELLOW; GLUCOSE, URINE (UA) NEGATIVE (NEGATIVE); KETONES,URINE NEGATIVE (NEGATIVE); LEUKOCYTE ESTERASE ,URINE 3+ (NEGATIVE); NITRITE,URINE NEGATIVE (NEGATIVE); PH,URINE 5 (5-9); PROTEIN,URINE 1+ (NEGATIVE); UROBILINOGEN,URINE NORMAL (NORMAL)
[2018-02-04 11:53] LABS: ALBUMIN 4.7 GM/DL (3.2-4.5); CALCIUM 9.6 MG/DL (8.5-10.1); CREATININE SERUM 1.26 MG/DL (0.60-1.30); PHOSPHORUS 4.6 MG/DL (2.3-4.7); POTASSIUM 4.3 MMOL/L (3.6-5.0)
[2018-02-04 12:03] LABS: BACTERIA,URINE FEW /HPF; RBC,URINE RARE /HPF
== END ==
LOC: LAB 10:45
PROVIDERS: ATTEND Internal Medicine Nephrology
DX: N18.4 Chronic kidney disease, stage 4 (severe) (principal); I12.9 Hypertensive chronic kidney disease with stage 1 through stage 4 chronic kidney disease, or unspecified chronic kidney disease; E87.3 Alkalosis; E87.5 Hyperkalemia; N25.81 Secondary hyperparathyroidism of renal origin; R80.9 Proteinuria, unspecified; E55.9 Vitamin D deficiency, unspecified; D63.1 Anemia in chronic kidney disease; E78.5 Hyperlipidemia, unspecified; E61.1 Iron deficiency; E87.2 Acidosis; N17.9 Acute kidney failure, unspecified
CPT/HCPCS: 36415; 80069; 81000; 82306; 82570; 82728; 83540; 83970; 84156; 85027; 87088

== ENCOUNTER → 2018-02-05 | Outpatient (CLI) | payer MEDICARE, MEDICAID ==
--- NOTE | 2018-02-05 15:54 | Diagnostic Imaging Report ---
INDICATION: Lung nodule. TECHNIQUE: Serum blood glucose level at the time of injection was 99 mg/dL. The patient was administered 11.6 mCi of F-18 FDG intravenously administered in the left forearm and PET imaging was performed from the top of the skull to the mid thighs. Noncontrast CT was also performed for attenuation correction and anatomic correlation. COMPARISON: Comparison is made with prior noncontrast CT chest from 10/26/2017. No prior PET study is available for comparison. FINDINGS: Symmetric activity within the brain is identified. No abnormal metabolism in the neck is identified. No pulmonary parenchymal hypermetabolism is seen. The kenan and mediastinum are unremarkable. Specifically, no abnormal activity is identified in the nodular density in the right paratracheal location seen on the recent CT. Physiologic activity within the abdomen and pelvis GI and tracts is seen. No abnormal hypermetabolism is identified. IMPRESSION: Unremarkable PET/CT study. Specifically, no hypermetabolism in the right paratracheal density noted on recent CT. This is reassuring however followup chest CT in 4-6 months is recommended to confirm stability. Dictated by: Dictated on workstation # [id number]
== END ==
LOC: RAD 11:03
PROVIDERS: ATTEND Internal Medicine Critical Care Medicine
DX: R91.1 Solitary pulmonary nodule (principal)

== ENCOUNTER → 2018-02-06 | Outpatient (CLI) | payer MEDICARE, MEDICAID ==
[~2018-02-06] VITALS: Ht 160 cm; Wt 89.8 kg
[~2018-02-06] MED LIST changes: +CATHETER FLUSH 10 ML SYR IV PRN; +REGADENOSON 0.4 MG/5 ML SYR (LEXISCAN) IV ONE
[2018-02-06 13:47] VITALS: BP 136/68
[2018-02-06 13:50] VITALS: BP 109/53
--- NOTE | 2018-02-07 09:34 | STRESS TEST ---
DATE OF SERVICE: 02/06/2018 LEXISCAN MYOVIEW STRESS TEST REPORT Baseline heart rate is 66. Baseline blood pressure is 136/68. Baseline EKG is sinus rhythm with no ischemic changes. In summary, the patient was injected with 10.0 mCi of technetium-99 Myoview and the resting images were obtained. Then, the patient received 0.4 mg of Lexiscan followed by 29.3 mCi of technetium-99 Myoview. Throughout the test, there were no EKG changes. The resting and stress images were reviewed and compared in the short axis, horizontal long axis, and vertical long axis views. Review of the images showed breast attenuation with reversible ischemia involving the whole anterior wall and anterolateral wall. SSS is 10, SDS 6. TID value 1.01. On the gated images, the left ventricle appeared to be normal size with normal contractility. Calculated ejection fraction is 61%. CONCLUSION: 1. The patient tolerated Lexiscan well. 2. Breast attenuation with reversible ischemia involving the whole anterior wall and anterolateral wall. 3. Normal left ventricular size with normal contractility. Calculated ejection fraction is 61%. Job ID: [id number] DocumentID: [id number] Dictated Date: 02/06/2018 16:01:48 Bakery Machine Mechanic Date: 02/06/2018 16:14:38 Dictated By: ARUNA HERNANDEZ MD
== END ==
LOC: CARD 13:04
PROVIDERS: ATTEND Internal Medicine Cardiovascular Disease
DX: I25.10 Atherosclerotic heart disease of native coronary artery without angina pectoris (principal); R07.89 Other chest pain; I10 Essential (primary) hypertension; I48.0 Paroxysmal atrial fibrillation; R06.02 Shortness of breath; M79.7 Fibromyalgia; E66.01 Morbid (severe) obesity due to excess calories; Z68.35 Body mass index [BMI] 35.0-35.9, adult
CPT/HCPCS: 78452; 93017

== ENCOUNTER → 2018-02-11 | Outpatient (CLI) | payer MEDICARE, MEDICAID ==
[~2018-02-11] MED LIST changes: -CATHETER FLUSH 10 ML SYR IV PRN; -REGADENOSON 0.4 MG/5 ML SYR (LEXISCAN) IV ONE; +RT-ALBUTEROL SULF 2.5 MG/3 ML PRE-MIX VIAL INH ONE
== END ==
LOC: RT 12:07
PROVIDERS: ATTEND Nurse Practitioner Family
DX: R91.1 Solitary pulmonary nodule (principal); J45.909 Unspecified asthma, uncomplicated; R06.02 Shortness of breath; G47.33 Obstructive sleep apnea (adult) (pediatric); R53.83 Other fatigue; K92.9 Disease of digestive system, unspecified; I48.0 Paroxysmal atrial fibrillation
CPT/HCPCS: 94060; 94640; 94726; 94729

== ENCOUNTER 2018-02-28 11:15 | Outpatient (CLI) | payer MEDICARE, MEDICAID ==
[~2018-02-28 11:15] MED LIST changes: -RT-ALBUTEROL SULF 2.5 MG/3 ML PRE-MIX VIAL INH ONE
== END 2018-02-28 12:40 | disposition home or self-care (01) ==
LOC: SLEEP 11:15
PROVIDERS: ATTEND Nurse Practitioner Family
DX: G47.33 Obstructive sleep apnea (adult) (pediatric) (principal); R91.1 Solitary pulmonary nodule; Z78.9 Other specified health status

== ENCOUNTER → 2018-04-30 | Outpatient (CLI) | payer MEDICARE, MEDICAID ==
--- NOTE | 2018-04-30 18:12 | Diagnostic Imaging Report ---
EXAMINATION: PA and lateral Chest at 2:23 p.m. INDICATION: Congestion. FINDINGS: The borderline cardiomegaly noted on 06/01/2017 is again evident and no different. The lungs are generally clear. There is still no sign of failure, pneumonia, or pleural effusion. There is persistent elevation of the right hemidiaphragm. The mediastinum is not widened. The osseous structures are intact. The central venous catheter on the right seen previously has been removed. IMPRESSION: There is no evidence for an acute cardiopulmonary abnormality. Dictated by: Dictated on workstation # [id number]
== END ==
LOC: RAD 13:50
PROVIDERS: ATTEND Nurse Practitioner Family
DX: J45.909 Unspecified asthma, uncomplicated (principal); R91.1 Solitary pulmonary nodule
CPT/HCPCS: 71046

== ENCOUNTER 2018-05-08 19:13 | Emergency (ER) | payer MEDICARE, MEDICAID ==
[~2018-05-08] VITALS: Ht 154.9 cm; Wt 99.8 kg
[~2018-05-08 19:13] MED LIST changes: -AMLO10TA6 PO; +AMLO10TA7 PO; -AMLO5TAB7 PO; +AMLO5TAB9 PO; -GEMF600T4 PO; +GEMF600T8 PO; +LOSA100T57 PO; -LOSA100T8 PO
[2018-05-08] MEDS ORDERED: LIDOCAINE 2% VISCOUS 15 ML UDC PO ONE (19:30)
[2018-05-08] MEDS ORDERED: ANTACID SUSP 30 ML UDC (MYLANTA) PO ONE (19:30)
[2018-05-08 19:38] LABS: BASOPHILS % (AUTO) 0 % (0-10); EOSINOPHILS # (AUTO) 0.2 10^3/uL (0.0-0.3); EOSINOPHILS % (AUTO) 2 % (0-10); HEMATOCRIT 37 % (35-52); LYMPHOCYTES # (AUTO) 2.2 X 10^3 (1.0-4.0); LYMPHOCYTES % (AUTO) 20 % (12-44); MEAN CORPUSCULAR HEMOGLOBIN 31 PG (25-34); MEAN CORPUSCULAR HGB CONC 32 G/DL (32-36); MEAN CORPUSCULAR VOLUME 98 FL (80-99); MONOCYTES % (AUTO) 9 % (0-12); NEUTROPHILS # (AUTO) 7.9 X 10^3 (1.8-7.8); NEUTROPHILS % (AUTO) 70 % (42-75); PLATELET COUNT 251 10^3/uL (130-400); RED BLOOD COUNT 3.82 10^6/uL (4.35-5.85); RED CELL DISTRIBUTION WIDTH 13.2 % (10.0-14.5); WHITE BLOOD COUNT 11.4 10^3/uL (4.3-11.0)
--- NOTE | 2018-05-08 19:39 | ED Chest Pain ---
General Chief Complaint: Chest Pain Stated Complaint: TIGHTNESS IN CHEST, SOB Source: patient Exam Limitations: no limitations History of Present Illness Date Seen by Provider: May 08, 2018 Time Seen by Provider: 19:35 Initial Comments To ER with reports of intermittent tight tight chest pain since Sunday05/03/18. She's had associated shortness of breath and a cough. She is currently on day 7 of a steroid taper for "viral URI". Patient has a history of asthma and she follows with Dr. Madden. She also has history of fibromyalgia. No fevers or chills. She had a coronary catheterization on 01/20/15 showing mild nonobstructive coronary artery disease. She had a stress test on 02/06/18 showing reversible ischemia of the anterior wall and anterolateral wall. At this very moment, she is pain-free. She takes full dose aspirin daily. 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 INTERN: No Associated Symptoms: No nausea/vomiting; shortness of breath Allergies and Home Medications Allergies Coded Allergies: diltiazem (Unverified Allergy, Unknown, 10/10/17) Home Medications Albuterol Sulfate 1 Puff Puff, 2 PUFF INH Q4H PRN for SHORTNESS OF BREATH, ( Reported) Ascorbic Acid 1,000 Mg Tablet, 1,000 MG PO DAILY, (Reported) Aspirin 325 Mg Tablet, 325 MG PO DAILY Prescribed by: ANN MARIE AJRA on 06/03/17 1313 Budesonide/Formoterol Fumarate 10.2 Gm Hfa.aer.ad, 2 PUFF INH BID, (Reported) Duloxetine HCl 60 Mg Capsule.dr, 60 MG PO DAILY, (Reported) Ergocalciferol (Vitamin D2) 50,000 Unit Capsule, 50,000 UNITS PO WEEK, (Reported ) LAST FILLED #4 CAPS 12-5-17 Ferrous Sulfate 325 Mg Tablet, 325 MG PO TID, (Reported) Fish Oil/Dha/Epa 1 Each Capsule, 1,200 MG PO HS, (Reported) Fluticasone Propionate 16 Gm [place].susp, 1 SPRAY NS BID PRN for ALLERGIES/ CONGESTION, (Reported) Gemfibrozil 600 Mg Tablet, 600 MG PO BID, (Reported) Ipratropium [place] 15 Ml Naspr, 1-2 SPRAYS NS TID PRN for DRAINAGE, (Reported) Levothyroxine Sodium 150 Mcg Tablet, 150 MCG PO DAILY, (Reported) Metoprolol Succinate 50 Mg Tab.er.24h, 50 MG PO DAILY Prescribed by: ANN MARIE JARA on 06/03/17 1313 Nystatin 15 Gm Cream..g., 15 GM TP BID PRN, (Reported) Nystatin 100,000 Unit/1 Ml Oral.susp, 100,000 UNIT PO QID, (Reported) Pantoprazole Sodium 40 Mg Tablet.dr, 40 MG PO DAILY, (Reported) Pregabalin 150 Mg Capsule, 150 MG PO TID, (Reported) Psyllium Husk 0.52 Gm Capsule, 0.52 GM PO TID, (Reported) Ropinirole HCl 4 Mg Tablet, 4 MG PO 2199,2229, (Reported) Topiramate 100 Mg Tablet, 100 MG PO BID, (Reported) Tramadol HCl 50 Mg Tablet, 1-2 MG PO Q4H, (Reported) Patient Home Medication List Home Medication List Reviewed: Yes Review of Systems Review of Systems Constitutional: see HPI; No chills, No fever EENTM: No Symptoms Reported Respiratory: See HPI, Cough, Shortness of Air Cardiovascular: See HPI, Chest Pain Gastrointestinal: No Symptoms Reported Genitourinary: No Symptoms Reported Musculoskeletal: no symptoms reported Skin: no symptoms reported Psychiatric/Neurological: No Symptoms Reported Endocrine: No Symptoms Reported Hematologic/Lymphatic: No Symptoms Reported Past Axmstaf-Wvrqhg-Jbussd Hx Patient Social History Recent Foreign Travel: No Contact w/Someone Who Travel: No Recent Hopitalizations: Yes (RECENT L TKR) Immunizations Up To Date Tetanus Booster (TDap): Unknown Date of Influenza Vaccine: Jan 14, 2017 Seasonal Allergies Seasonal Allergies: No Past Medical History Surgeries: Yes ( lt endolymphatic shunt mastoids, esphageal zenker diverticulum removed) Respiratory: Yes (ASTHMA) Asthma, Sleep Apnea Currently Using CPAP: No Currently Using BIPAP: No Cardiac: No (CAD, MITRAL VALVE PROLAPSE) High Cholesterol, Hypertension, Valvular Heart Disease Neurological: No Reproductive Disorders: No Sexually Transmitted Disease: No Genitourinary: Yes Renal Failure Gastrointestinal: Yes (Zenker's diverticulia removed 2014) Gastroesophageal Reflux Musculoskeletal: Yes (FIBROMYALGIA) Arthritis, Fibromyalgia Endocrine: Yes (hypo thyroid) Hypothyroidsim HEENT: No Cancer: No Psychosocial: Yes Anxiety, Depression Integumentary: No Blood Disorders: No Adverse Reaction/Blood Tranf: No Family Medical History No Pertinent Family Hx Physical Exam Vital Signs Capillary Refill : Height, Weight, BMI Height: 5'3.00" Weight: 198lbs. 0.0oz. [id number]; 35.1 BMI Method:Stated General Appearance: No Apparent Distress, WD/WN, Obese HEENT: PERRL/EOMI, TMs Normal Respiratory: Lungs Clear, Normal Breath Sounds, No Accessory Muscle Use, No Respiratory Distress Cardiovascular: Regular Rate, Rhythm, Normal Peripheral Pulses Gastrointestinal: Non Tender, Soft Extremity: Normal Capillary Refill, Normal Inspection Neurologic/Psychiatric: Alert, Oriented x3 Skin: Normal Color, Warm/Dry Progress/Results/Core Measures Results/Orders Lab Results Laboratory Tests Test 05/08/18 19:28 05/08/18 21:45 Range/Units White Blood Count 11.4 H 4.3-11.0 10^3/uL Red Blood Count 3.82 L 4.35-5.85 10^6/uL Hemoglobin 12.0 11.5-16.0 G/DL Hematocrit 37 35-52 % Mean Corpuscular Volume 98 80-99 FL Mean Corpuscular Hemoglobin 31 25-34 PG Mean Corpuscular Hemoglobin Concent 32 32-36 G/DL Red Cell Distribution Width 13.2 10.0-14.5 % Platelet Count 251 130-400 10^3/uL Mean Platelet Volume 10.0 7.4-10.4 FL Neutrophils (%) (Auto) 70 42-75 % Lymphocytes (%) (Auto) 20 12-44 % Monocytes (%) (Auto) 9 0-12 % Eosinophils (%) (Auto) 2 0-10 % Basophils (%) (Auto) 0 0-10 % Neutrophils # (Auto) 7.9 H 1.8-7.8 X 10^3 Lymphocytes # (Auto) 2.2 1.0-4.0 X 10^3 Monocytes # (Auto) 1.0 0.0-1.0 X 10^3 Eosinophils # (Auto) 0.2 0.0-0.3 10^3/uL Basophils # (Auto) 0.0 0.0-0.1 10^3/uL Prothrombin Time 13.5 12.2-14.7 SEC INR Comment 1.0 0.8-1.4 Activated Partial Thromboplast Time 23 L 24-35 SEC D-Dimer 0.55 H 0.00-0.49 UG/ML Sodium Level 144 135-145 MMOL/L Potassium Level 3.7 3.6-5.0 MMOL/L Chloride Level 106 98-107 MMOL/L Carbon Dioxide Level 28 21-32 MMOL/L Anion Gap 10 5-14 MMOL/L Blood Urea Nitrogen 29 H 7-18 MG/DL Creatinine 1.12 0.60-1.30 MG/DL Estimat Glomerular Filtration Rate 50 BUN/Creatinine Ratio 26 Glucose Level 116 H 70-105 MG/DL Calcium Level 9.1 8.5-10.1 MG/DL Corrected Calcium 8.9 8.5-10.1 MG/DL Magnesium Level 2.3 1.8-2.4 MG/DL Total Bilirubin 0.3 0.1-1.0 MG/DL Aspartate Amino Transf (AST/SGOT) 14 5-34 U/L Alanine Aminotransferase (ALT/SGPT) 10 0-55 U/L Alkaline Phosphatase 115 40-136 U/L Myoglobin 38.8 10.0-92.0 NG/ML Troponin I < 0.028 <0.028 NG/ML B-Type Natriuretic Peptide 122.8 H <100.0 PG/ML Total Protein 7.2 6.4-8.2 GM/DL Albumin 4.3 3.2-4.5 GM/DL Lipase 28 8-78 U/L My Orders Orders - FELICIANO WAYNE [employer] Cbc With Automated Diff (05/08/18 19:30) Magnesium (05/08/18 19:30) Chest 1 View, Ap/Pa Only (05/08/18 19:30) Ekg Tracing (05/08/18 19:30) Cardiac Profile 1 (05/08/18 19:30) Comprehensive Metabolic Panel (05/08/18 19:30) Myoglobin Serum (05/08/18:30) Protime With Inr (05/08/18:30) Partial Thromboplastin Time (05/08/18 19:30) O2 (05/08/18:30) Monitor-Rhythm Ecg Trace Only (05/08/18:30) Lipid Panel (05/09/18 06:00) Saline Lock/Iv-Start (05/08/18 19:30) Lipase (05/08/18 19:30) BNP (05/08/18 19:30) Fibrin Degradation Products (05/08/18 19:30) Antacid Suspension (Mylanta Suspension (05/08/18 19:30) Lidocaine 2% Viscous 15 Ml (Xylocaine Vi (05/08/18 19:30) Ns Iv 1000 Ml (Sodium Chloride 0.9%) (05/08/18 20:00) Morphine Injection (Morphine Injection (05/08/18 20:15) Troponin I (05/08/18 21:29) Ekg Tracing (05/08/18 21:29) Medications Given in ED Current Medications Medications Dose Ordered Sig/Sonia Route Start Time Stop Time Status Last Admin Dose Admin Al Hydrox/Mg Hydrox/Simethicone 30 ml ONCE ONCE PO 05/08/18 19:30 05/08/18 19:32 DC 05/08/18 19:40 30 ML Lidocaine HCl 10 ml ONCE ONCE PO 05/08/18 19:30 05/08/18 19:32 DC 05/08/18 19:41 10 ML Diagnostic Imaging Diagonstic Imaging: Xray Plain Films/CT/US/NM/MRI: chest Comments NAME: BRANDON MARQUEZ MED REC#: [id number] PT STATUS: REG ER : 1960 PHYSICIAN: FELICIANO WAYNE [employer] ADMIT DATE: 05/08/18/ER Draft Date of Exam:05/08/18 CHEST 1 VIEW, AP/PA ONLY INDICATION: Chest pain COMPARISON: 04/30/2018 FINDINGS: Single view of the chest demonstrates stable cardiac enlargement. The lungs are clear. There is no pneumothorax. The osseous structures normal. IMPRESSION: Cardiac enlargement without pulmonary edema or infiltrate Dictated on workstation # [id number] Dict: 05/08/181946 Trans: 05/08/181950 KEELY [id number] Interpreted by: SANTIAGO LUNA Electronically signed by: Departure Communication (Admissions) 2007- her d-dimer adjusted for age is negative. Her troponin is negative. Her EKG is unchanged. I will repeat a 3 hour troponin and if still negative discharge to home. Impression Primary Impression: Chest pain Qualified Codes: R07.9 - Chest pain, unspecified Disposition: 01 HOME, SELF-CARE Condition: Stable Departure-Patient Inst. Decision time for Depature: 22:03 Referrals: [facility] (PCP/Family) Primary Care Physician Patient Instructions: Chest Pain (DC) Add. Discharge Instructions: 1. Return to ER for any concerns 2. Call Dr. Franklin in the morning for follow-up 3. All discharge instructions reviewed with patient and/or family. Voiced understanding. Copy Copies To 1: ARUNA FRANKLIN MD, PETER J APRN May 08, 2018 19:39
[2018-05-08 19:47] LABS: PROTHROMBIN TIME PATIENT 13.5 SEC (12.2-14.7)
--- NOTE | 2018-05-08 19:51 | Diagnostic Imaging Report ---
INDICATION: Chest pain COMPARISON: 04/30/2018 FINDINGS: Single view of the chest demonstrates stable cardiac enlargement. The lungs are clear. There is no pneumothorax. The osseous structures normal. IMPRESSION: Cardiac enlargement without pulmonary edema or infiltrate Dictated by: Dictated on workstation # [id number]
[2018-05-08 19:57] LABS: ALANINE AMINOTRANSFERASE 10 U/L (0-55); ALBUMIN 4.3 GM/DL (3.2-4.5); ALKALINE PHOSPHATASE 115 U/L (40-136); BILIRUBIN,TOTAL 0.3 MG/DL (0.1-1.0); BUN/CREATININE RATIO 26; CALCIUM 9.1 MG/DL (8.5-10.1); CARBON DIOXIDE 28 MMOL/L (21-32); CHLORIDE 106 MMOL/L (98-107); CREATININE SERUM 1.12 MG/DL (0.60-1.30); GFR ESTIMATED 50; GLUCOSE 116 MG/DL (70-105); LIPASE 28 U/L (8-78); MAGNESIUM 2.3 MG/DL (1.8-2.4); POTASSIUM 3.7 MMOL/L (3.6-5.0); SODIUM 144 MMOL/L (135-145); TOTAL PROTEIN 7.2 GM/DL (6.4-8.2)
[2018-05-08] MEDS ORDERED: NS IV 1000 ML 1,000 ML IV SCH (20:00)
[2018-05-08 20:04] LABS: MYOGLOBIN SERUM 38.8 NG/ML (10.0-92.0)
[2018-05-08] MEDS ORDERED: morphine INJ 10 MG/ML 1ML (SYR OR VIAL) IVP ONE (20:15)
[2018-05-08 22:15] VITALS: BP 145/83
== END 2018-05-08 22:18 | disposition home or self-care (01) ==
LOC: EDUNIT# 19:13 → ER 19:15
DX: R07.89 Other chest pain (principal); I25.10 Atherosclerotic heart disease of native coronary artery without angina pectoris; J45.909 Unspecified asthma, uncomplicated; G47.30 Sleep apnea, unspecified; E78.00 Pure hypercholesterolemia, unspecified; I10 Essential (primary) hypertension; K21.9 Gastro-esophageal reflux disease without esophagitis; E03.9 Hypothyroidism, unspecified; F41.9 Anxiety disorder, unspecified; F32.9 Major depressive disorder, single episode, unspecified; Z79.4 Long term (current) use of insulin; Z88.8 Allergy status to other drugs, medicaments and biological substances; Z96.652 Presence of left artificial knee joint; Z79.51 Long term (current) use of inhaled steroids; Z79.82 Long term (current) use of aspirin
CPT/HCPCS: 36415; 71045; 80053; 83690; 83735; 83874; 83880; 84484; 85025; 85379; 85610; 85730; 93005; 93041

== ENCOUNTER 2018-05-29 07:20 | Day surgery (SDC) | payer MEDICARE, MEDICAID ==
[2018-05-29] VITALS (11 sets, daily range): BP systolic 104–144; BP diastolic 59–75
[~2018-05-29] VITALS: Ht 154.9 cm; Wt 102.1 kg
[2018-05-29] MEDS ORDERED: HEParin (CATH LAB) 2,000 ML IV ONE (07:22)
[2018-05-29] MEDS ORDERED: NS IV 1000 ML 1,000 ML ONE (07:22)
[2018-05-29] MEDS ORDERED: LIDOCAINE 1% INJ 20 ML 20 ML VIAL ONE (07:22)
--- OUTSIDE RECORDS SUMMARY | 2018-05-29 07:23 | XMS REPORT | Clinical Summary ---
Author Author [facility] Organization [facility] Address Unknown Phone Unavailable Care Team Providers Care Satellite Tv Technician Name Role Phone PCP Unavailable Allergies Not on File Current Medications Not on file Active Problems Not on file Social History Tobacco Use Types Packs/Day Years Used Date Never Assessed Sex Assigned at Date Recorded Not on file Last Filed Vital Signs Not on file Plan of Treatment Not on file Results Not on filefrom Last 3 Months
--- OUTSIDE RECORDS SUMMARY | 2018-05-29 07:26 | XMS REPORT ---
Author Author ZHANE BOSCH [facility] Address [address] [place] [address] Care Team Providers [employer] Clerk Name Role Phone ZHANE BOSCH Unavailable PROBLEMS Type Condition ICD9-CM Code [id number] Code Onset Dates Condition Status SNOMED Code Problem Generalized anxiety disorder F41.1 Active 42047896 Problem Low back pain M54.5 Active 183384342 Problem Coronary artery disease involving hamilton coronary artery of hamilton heart, angina presence unspecified I25.10 Active 6471251539551 Problem Dysthymic 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 Active 48598597 Problem Restless leg G25.81 Active 05134274 Problem Hypothyroid E03.9 Active 12242732 Problem Insomnia G47.00 Active 109586073 Problem Asthma J45.909 Active 665022632 Problem Palpitations R00.2 Active 88914851 Problem Anemia in chronic kidney disease D63.1 Active 091288028574376 Problem Depressed F32.9 Active 88999944 Problem Bipolar disorder, current episode manic without psychotic features F31.10 Active 205134122 Problem Chronic kidney disease, stage 4 (severe) N18.4 Active 323668696 Problem Degenerative tear of medial meniscus of left knee M23.204 Active 754627745 Problem Mood disorder F39 Active 32876804 Problem Primary osteoarthritis of left knee M17.12 Active 290178767 Problem Perimenopausal vasomotor symptoms N95.1 Active 482601470 Problem Chronic pain syndrome G89.4 Active 630913512 Problem Asthma with acute exacerbation in adult J45.901 Active 587075387 Problem History of colon polyps Z86.010 Active 017913143 Problem Functional 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 Active 10268081 Problem Body mass index (BMI) of 40.0-44.9 in adult Z68.41 Active 275396491 Problem Stage 3 chronic kidney disease N18.3 Active 889791076 Problem Restless leg syndrome G25.81 Active 07963092 Problem Seasonal allergic rhinitis due to pollen J30.1 Active 57996367 Problem Long-term use of high-risk medication Z79.899 Active 163212080 Problem Hypokalemia E87.6 Active 43010802 Problem Abnormal chest CT R93.8 Active 270216202 Problem Fibromyalgia M79.7 Active 631553334 Problem History of anemia Z86.2 Active 347865673 Problem Other seasonal allergic rhinitis J30.2 Active 535543922 Problem Essential (primary) hypertension I10 Active 31781127 Problem Chronic kidney disease, unspecified N18.9 Active 695724609 Problem Mixed stress and urge urinary incontinence N39.46 Active 713572584 Problem Vitamin D deficiency E55.9 Active 85341956 ALLERGIES No Information ENCOUNTERS Encounter Location Date Diagnosis [facility] [address] [address] Mar, [place] [address] [address] Mar, Fibromyalgia M79.7 [facility] [address] [address] 15 Feb, 2018 [facility] [address] [address]- [address] 14 Feb, 2018 [facility] [address] 00[address]- [address] Feb, [facility] [address] [address]- [address] Feb, Fibromyalgia M79.7 [facility] [address] [address]- [address] 08 Feb, 2018 Complicated UTI (urinary tract infection) N39.0 [facility] [address] [address]- 47[address] 07 Feb, 2018 [facility] [address] [address]- [address] Jan, Generalized anxiety disorder F41.1 and Major depressive disorder, recurrent episode with anxious distress F33.9 [facility] [address] [address] Jan, Acute conjunctivitis of left eye, unspecified acute conjunctivitis type H10.32 [facility] [address] [place] [id number] [place] [address] 06237- 2863 Jan, [facility] [address] [place] [id number] [place] [address] 17266- 5689 Jan, Acute non-recurrent maxillary sinusitis J01.00 ; Dysuria R30.0 ; Perimenopausal vasomotor symptoms N95.1 and Fibromyalgia M79.7 [facility] [address] [place] [id number] [place] [address] 97250- 9695 Dec, Vitamin D deficiency E55.9 [facility] [address] [place] [id number] [place] [address] 41777- 5456 Dec, Vitamin D deficiency E55.9 [facility] [address] [place] [id number] [place] [address] 22640- 9600 24 Dec, 2017 Vitamin D deficiency E55.9 [facility] [address] [place] [id number] [place] [address] 45712- 3549 Dec, [facility] [address] [place] [id number] [place] [address] 61461- 6671 Dec, Fibromyalgia M79.7 [facility] [address] [place] [id number] [place] [address] 53739- 1143 Nov, [facility] [address] [place] [id number] [place] [address] 44348- 6041 Nov, [facility] [address] [place] [id number] [place] [address] 54166- 2485 Nov, [facility] [address] [place] [id number] [place] [address] 11477- 8778 Nov, Fibromyalgia M79.7 ; Vision changes H53.9 ; Chest wall pain R07.89 and Chronic pain syndrome G89.4 [facility] [address] [place] [id number] [place] [address] 97626- 2998 Nov, [facility] [address] [place] [id number] [place] [address] 41397- 3732 Nov, Rash of hands R21 [facility] [address] [place] [id number] [place] [address] 99855- 4503 Nov, Generalized anxiety disorder F41.1 and Major depressive disorder, recurrent episode with anxious distress F33.9 [facility] [address] [place] [id number] [place] [address] 89528- 8665 Nov, Fibromyalgia M79.7 [place] [address] [place] [id number] [place] [address] 06641- 0030 Nov, Complicated UTI (urinary tract infection) N39.0 [place] [address] [place] [id number] [place] [address] 97748- 1154 Oct, [facility] [address] [place] [id number] [place] [address] 76408- 2131 Oct, Generalized anxiety disorder F41.1 and Major depressive disorder, recurrent episode with anxious distress F33.9 [place] [address] [place] [id number] [place] [address] 52377- 8721 Oct, [facility] [address] [place] [id number] [place] [address] 98765- 4953 Oct, Fibromyalgia M79.7 [facility] [address] [place] [id number] [place] [address] 12352- 9613 Sep, Restless leg syndrome G25.81 and Restless leg G25.81 [facility] [address] [place] [id number] [place] [address] 11439- 8890 Sep, [place] [address] [place] [id number] [place] [address] 01279- 9698 Sep, Seasonal allergic rhinitis due to pollen J30.1 ; Screening for breast cancer Z12.31 ; Chest pain at rest R07.9 ; Restless leg syndrome G25.81 ; Essential (primary) hypertension I10 and Depressed F32.9 [facility] [address] [place] [id number] [place] [address] 28180- 9095 August, Fibromyalgia M79.7 [facility] [address] [place] [id number] [place] [address] 81176- 2645 August, [facility] [address] [place] [id number] [place] [address] 32888- 1321 August, [facility] [address] [place] [id number] [place] [address] 92643- [address] August, Ab[address] chest [address] R93.8 [facility] [address] [place] [id number] [place] [address] 83092- 5619 August, Generalized anxiety disorder F41.1 and Major depressive disorder, recurrent episode with anxious distress F33.9 [facility] [address] [place] [id number] [place] [address] 90627- 0545 August, Abnormal chest [address] R93.8 [facility] [address] [place] [id number] [place] [address] 40196- 1163 Jul, [facility] [address] [place] [id number] [place] [address] 97868- 5512 Jul, Chronic kidney disease, stage 4 (severe) N18.4 [facility] [address] [place] [id number] [place] [address] 15316- 0081 Jul, [facility] [address] [place] [id number] [place] [address] 18832- 3347 Jul, Restless leg G25.81 ; Mixed stress and urge urinary incontinence N39.46 and Fibromyalgia M79.7 [facility] [address] [place] [id number] [place] [address] 12977- 3883 Jul, Chronic kidney disease, stage 4 (severe) N18.4 [facility] [address] [place] [id number] [place] [address] 80484- 1847 Jun, Orthostatic hypotension I95.1 ; Chronic kidney disease, stage 4 (severe) N18.4 ; Chest wall discomfort R07.89 and Body mass index (BMI) of 40.0-44.9 in adult Z68.41 [place] [address] [place] [id number] [place] [address] 54656- 5265 Jun, [facility] [address] [place] [id number] [place] [address] 17621- 1198 Jun, Orthostatic hypotension I95.1 [facility] [address] 66147- 4879 Jun, [facility] [address] [place] [id number] [place] [address] 78629 -2658 Jun, Orthostatic hypotension I95.1 ; Dysuria R30.0 and Acute cystitis without hematuria N30.00 [place] [address] [place] [id number] [place] [address] 48619- 8342 Jun, [facility] [address] [place] [id number] [place] [address] 78708- 9368 Jun, Chronic kidney disease, stage 4 (severe) N18.4 [place] [address] [place] [id number] [place] [address] 87696- 7833 Jun, Fibromyalgia M79.7 [facility] [address] [place] [id number] [place] [address] 12296- 1771 Jun, [place] [address] [place] [id number] [place] [address] 08528- 9446 Jun, [facility] [address] [place] [id number] [place] [address] 65151- [address]27 May, [address] R93.8 and Stage 3 chronic kidney disease N18.3 [place] [address] [place] [id number] [place] [address] 44990- 5862 May, Chronic kidney disease, stage 4 (severe) N18.4 [facility] [address] [place] [id number] [place] [address] 61605- 4535 May, Chronic kidney disease, stage 4 (severe) N18.4 [place] [id number] [place] [address] 74482- [address]166 May, [address] R93.8 [place] [address] [place] [id number] [place] [address] 98775- 8266 May, [place] [address] [place] [id number] [place] [address] 57779- 5541 May, [place] [address] [place] [id number] [place] [address] 76702- 5538 May, Generalized anxiety disorder F41.1 and Major depressive disorder, recurrent episode with anxious distress F33.9 [place] [address] [place] [id number] [place] [address] 74535- 2162 May, Mood disorder F39 [place] [address] [place] [id number] [place] [address] 62246- 1808 Apr, [place] [address] [place] [id number] [place] [address] 06206- 1051 Apr, Infected skin lesion L08.9 and Muscle strain of right shoulder region, initial encounter S46.911A [place] [address] [place] [id number] [place] [address] 54464- 7893 Apr, Generalized anxiety disorder F41.1 and Major depressive disorder, recurrent episode with anxious distress F33.9 [place] [id number] [place] [address] 08652- 6501 Apr, [place] [id number] [place] [address] 67159- 2586 Apr, Recent urinary tract infection Z87.440 and Hypothyroid E03.9 [place] [id number] [place] [address] 49387- 1118 Apr, Generalized anxiety disorder F41.1 and Major depressive disorder, recurrent episode with anxious distress F33.9 [place] [address] [place] [id number] [place] [address] 26694- 1087 Apr, Recent urinary tract infection Z87.440 [facility] [id number] [place] [address] 83905- 4234 Mar, [facility] [address] [place] [id number] [place] [address] 44933 -8632 Mar, Dysuria R30.0 ; Acute cystitis without hematuria N30.00 and BMI 40.0-44.9, adult Z68.41 [facility] [address] [place] [id number] [place] [address] 66480- 6041 14 Mar, 2017 [place] [address] [place] [id number] [place] [address] 96012- 8618 Mar, [place] [address] [place] [id number] [place] [address] 99453- 8738 Mar, Generalized anxiety disorder F41.1 and Major depressive disorder, recurrent episode with anxious distress F33.9 [place] [address] [place] [id number] [place] [address] 02195- 5845 Feb, Conjunctivitis, bacterial H10.9 [place] [address] [place] [id number] [place] [address] 45175- 1478 Feb, [facility] [place] [id number] [place] [address] 34085 -6168 Feb, Conjunctivitis, bacterial H10.9 [place] [address] [place] [id number] [place] [address] 33011- 7558 15 Feb, 2017 [facility] [id number] [place] [address] 44671 -4576 Feb, Dysuria R30.0 ; Acute cystitis N30.00 and BMI 40.0-44.9, adult Z68.41 [facility] [address] [place] [id number] [place] [address] 19844- 7031 08 Feb, 2017 [place] [address] [place] [id number] [place] [address] 14477- 2660 Feb, Generalized anxiety disorder F41.1 and Major depressive disorder, recurrent episode with anxious distress F33.9 [place] [address] [place] [id number] [place] [address] 55843- 4255 Feb, Mood disorder F39 and BMI 40.0-44.9, adult Z68.41 [place] [address] [place] [id number] [place] [address] 68548- 7648 Jan, [place] [address] 82410- 1005 Jan, [place] [address] [place] [id number] [place] [address] 25845- 4718 Jan, Hypothyroid E03.9 [place] [address] [place] [id number] [place] [address] 10838- 2934 Jan, [place] [id number] [place] [address] 31813- 4971 Jan, Chronic kidney disease, unspecified N18.9 ; Hypokalemia E87.6 ; Essential (primary) hypertension I10 ; Fibromyalgia M79.7 ; Coronary artery disease involving hamilton coronary artery of hamilton heart, angina presence unspecified I25.10 ; Hypothyroid E03.9 and Encounter for immunization Z23 [place] [address] [place] [id number] [place] [address] 51087- 0157 Jan, Hypothyroid E03.9 [place] [address] [place] [id number] [place] [address] 48652- 7584 Jan, [place] [address] [place] [id number] [place] [address] 39770- 9184 Dec, Vitamin D deficiency E55.9 [place] [id number] [place] [address] 10902- 8206 Dec, Primary osteoarthritis of left knee M17.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 [place] [address] [place] [id number] [place] [address] 18295- 8936 Dec, Fibromyalgia M79.7 [facility] [address] [address]- 9291 18 Sep, 2016 Mood disorder F39 [facility] [address] [place] [id number] [place] [address] 84838- 4106 13 Dec, 2016 [facility] [id number] [place] [address] 35307- 5267 13 Dec, 2016 Generalized anxiety disorder F41.1 and Major depressive disorder, recurrent episode with anxious distress F33.9 [facility] [id number] [place] [address] 65025- 9189 11 Dec, 2016 [facility] [address] [place] [id number] [place] [address] 48791- 9046 08 Dec, 2016 Streptococcal meningitis G00.2 [facility] [id number] [place] [address] 15300- 4475 07 Dec, 2016 Streptococcal meningitis G00.2 [facility] [id number] [place] [address] 68386- 6741 07 Dec, 2016 [facility] [address] [place] [id number] [place] [address] 09089- 2741 06 Dec, 2016 Streptococcal meningitis G00.2 [facility] [address] [address]- 2549 06 Dec, 2016 [facility] [id number] [place] [address] 41170- 8079 06 Dec, 2016 Major depressive disorder, recurrent episode with anxious distress F33.9 [facility] [address] [address]- 2894 Nov, Fever, unspecified fever cause R50.9 [facility] [address] [address]- 4257 Nov, [facility] [address] [address]- 1249 Nov, Hypothyroid E03.9 [facility] [address] [address]- 9631 Nov, Generalized anxiety disorder F41.1 and Major depressive disorder, recurrent episode with anxious distress F33.9 [facility] [address] [place] [id number] [place] [address] 16477- 5737 Nov, [facility] [address] [address] Oct, Dental examination Z01.20 [facility] [address] [place] [id number] [place] [address] 02884- 1204 Oct, Generalized anxiety disorder F41.1 and Major depressive disorder, recurrent episode with anxious distress F33.9 [place] [address] [place] [id number] [place] [address] 16116- 1921 Oct, Chronic kidney disease, stage 4 (severe) N18.4 [place] [address] [place] [id number] [place] [address] 76082- 1347 Oct, [facility] [address] [place] [id number] [place] [address] 85285- 8956 Oct, Fibromyalgia M79.7 [place] [address] [place] [id number] [place] [address] 77236- 1041 Oct, [place] [address] [place] [id number] [place] [address] 92928- 0118 Oct, Generalized anxiety disorder F41.1 ; Major depressive disorder, recurrent episode with anxious distress F33.9 and Bipolar disorder, current episode manic without psychotic features F31.10 [facility] [address] [address]- 4936 Sep, [facility] [address] [id number] [place] [address] 92703- 7460 Sep, [facility] [address] [place] [id number] [place] [address] 32562- 9163 Sep, Vitamin D deficiency E55.9 [facility] [address] [place] [address]- 5982 Sep, Vitamin D deficiency E55.9 [place] [address] [place] [id number] [place] [address] 96365- 5847 Sep, [place] [address] [place] [id number] [place] [address] 02439- 5972 Sep, Chronic kidney disease, stage 4 (severe) N18.4 ; Hypothyroid E03.9 ; Restless leg G25.81 ; Fibromyalgia M79.7 ; Essential ( primary) hypertension I10 ; Vitamin D deficiency E55.9 ; Dyspepsia R10.13 ; Anemia in chronic kidney disease D63.1 ; Chronic kidney disease, unspecified N18.9 ; Coronary artery disease involving hamilton coronary artery of hamilton heart , angina presence unspecified I25.10 ; Screening breast examination Z12.39 and Low back pain M54.5 [place] [address] [place] [id number] [place] [address] 38287- 9622 August, Generalized anxiety disorder F41.1 and Major depressive disorder, recurrent episode with anxious distress F33.9 [place] [address] [place] [id number] [place] [address] 02021- 4982 August, Generalized anxiety disorder F41.1 and Major depressive disorder, recurrent episode with anxious distress F33.9 [place] [address] [place] [id number] [place] [address] 51016- 6344 August, Fibromyalgia M79.7 [place] [address] [place] [id number] [place] [address] 08099- 8701 Jul, Generalized anxiety disorder F41.1 and Major depressive disorder, recurrent episode with anxious distress F33.9 [place] [address] [place] [id number] [place] [address] 79390- 8292 Jul, Fibromyalgia M79.7 [place] [address] [place] [id number] [place] [address] 33906- 2212 Jul, Generalized anxiety disorder F41.1 [place] [address] [place] [id number] [place] [address] 98409- 6360 May, [place] [address] [address]- 9723 May, Hypothyroid E03.9 [place] [address] [address]- 5387 May, Chronic kidney disease, stage 4 (severe) N18.4 ; Hypothyroid E03.9 ; Restless leg G25.81 ; Fibromyalgia M79.7 ; Essential ( primary) hypertension I10 ; Vitamin D deficiency E55.9 ; Dyspepsia R10.13 ; Acute non-recurrent maxillary sinusitis J01.00 ; Anemia in chronic kidney disease D63.1 ; Chronic kidney disease, unspecified N18.9 and Coronary artery disease involving hamilton coronary artery of hamilton heart, angina presence unspecified I25.10 [place] [id number] [place] [address] 98750- 3736 May, Vitamin D deficiency, unspecified E55.9 [place] [address] [place] [id number] [place] [address] 19302- 3819 May, Generalized anxiety disorder F41.1 and Major depressive disorder, recurrent episode with anxious distress F33.9 [place] [id number] [place] [address] 80145- 4651 Apr, Pain in right knee M25.561 and Pain in left knee M25.562 [place] [id number] [place] [address] 43634- 3868 Apr, [place] [address] [place] [id number] [place] [address] 88880- 6710 Apr, [place] [address] [id number] [place] [address] 70279- 6590 Apr, [place] [id number] [place] [address] 31654- 8344 Mar, Generalized anxiety disorder F41.1 and Major depressive disorder, recurrent episode with anxious distress F33.9 [place] [id number] [place] [address] 24414- 3078 Mar, Generalized anxiety disorder F41.1 and Major depressive disorder, recurrent episode with anxious distress F33.9 [place] [id number] [place] [address] 78579- 1824 Mar, [place] [id number] [place] [address] 93166- 3981 Mar, [place] [id number] [place] [address] 79490- 4731 Mar, [place] [id number] [place] [address] 50193- 4095 Mar, Asthma J45.909 and Fibromyalgia M79.7 [place] [address] [id number] [place] [address] 03906- 3803 Mar, Chronic kidney disease, stage 4 (severe) N18.4 ; Vitamin D deficiency E55.9 and Essential (primary) hypertension I10 [place] [address] [id number] [place] [address] 52230- 6824 Feb, [place] [address] [place] [id number] [place] [address] 12310- 2082 Feb, Dysuria R30.0 ; Mixed stress and urge urinary incontinence N39.46 ; Fibromyalgia M79.7 and Chronic kidney disease, stage IV (severe) N18.4 [place] [address] [place] [id number] [place] [address] 33533- 3662 Feb, Chronic kidney disease, stage 4 (severe) N18.4 [place] [address] [place] [id number] [place] [address] 38753- 2557 Feb, Chronic kidney disease, stage 4 (severe) N18.4 [facility] [id number] [place] [address] [id number] Feb, [facility] [id number] [place] [address] [id number]- [id number] Feb, Vitamin D deficiency, unspecified E55.9 [facility] [id number] [place] [address] [phone] Jan, [facility] [id number] [place] [address] [phone] Jan, [facility] [id number] [place] [address] [phone] Dec, [facility] [address] [address]- [address] Dec, Chronic kidney disease, stage 4 (severe) N18.4 [place] [address] 40843- 2527 Dec, Dysthymic 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 and Generalized anxiety disorder F41.1 [place] [address] [id number] [place] [address] 89368- 2293 Dec, [place] [address] [address] [id number] [place] [address] 69058- 3649 Dec, [place] [address] [id number] [place] [address] 18850- 1597 Dec, Dysthymic 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 and Generalized anxiety disorder F41.1 [place] [address] [id number] [place] [address] 51983- 0725 Dec, Dysuria R30.0 ; Chronic kidney disease, stage 4 (severe) N18.4 ; Hypertension I10 ; Dyspepsia R10.13 ; Yeast dermatitis B37.2 ; Palpitations R00.2 ; Hypothyroid E03.9 ; Functional 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 and Other seasonal allergic rhinitis J30.2 [facility] [id number] [place] [address] 35269 -1418 Dec, [facility] [id number] [place] [address] 52435 -8475 Nov, Dysuria R30.0 and Stress incontinence N39.3 [place] [id number] [place] [address] 19869- 2865 Nov, [facility] [id number] [place] [address] 07840- 1798 Nov, [facility] [id number] [place] [address] 39596- 3927 Nov, Osteoarthritis of knees, bilateral M17.0 [place] [address] 97739- 4549 Nov, Dysthymic 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 and Generalized anxiety disorder F41.1 [place] [id number] [place] [address] 56913- 3573 Nov, [place] [id number] [place] [address] 24567- 3688 Nov, [place] [id number] [place] [address] 97234- 1143 Nov, Urgency of urination R39.15 [place] [id number] [place] [address] 06640- 3821 Nov, [place] [id number] [place] [address] 74970- 9151 Nov, Chronic kidney disease, stage 4 (severe) N18.4 [place] [id number] [place] [address] 32484- 5745 Oct, Hypertension I10 ; Coronary artery disease involving hamilton coronary artery of hamilton heart, angina presence unspecified I25.10 ; Palpitations R00.2 ; Hypothyroid E03.9 ; Right foot pain M79.671 ; Functional 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 and Other seasonal allergic rhinitis J30.2 [place] [id number] [place] [address] 28642- 1834 Oct, Dysthymic 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 and Generalized anxiety disorder F41.1 [place] [address] [id number] [place] [address] 39717- 8659 Sep, [place] [address] [address] 6927 Sep, [place] [id number] [place] [address] 76913- 9099 Sep, [place] [id number] [place] [address] 57987- 8863 Sep, [place] [address] [id number] [place] [address] 62622- 4842 Sep, [place] [id number] [place] [address] 96646- 7252 Sep, Dysthymic 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 and Generalized anxiety disorder F41.1 [place] [address] [place] [id number] [place] [address] 74279- 9124 16 Sep, 2015 Asthma with acute exacerbation in adult J45.901 ; Dysuria R30.0 ; Chronic kidney disease, stage 4 (severe) N18.4 and History of anemia Z86.2 [place] [address] [id number] [place] [address] 28149- 7968 Sep, Generalized anxiety disorder F41.1 and Dysthymic 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 [place] [id number] [place] [address] 97480- 6650 August, Screening breast examination Z12.39 and Acute recurrent maxillary sinusitis J01.01 [place] [id number] [place] [address] 64361- 0820 August, Osteoarthritis of knees, bilateral M17.0 [id number] [place] [address] 40710- 8224 August, Chronic kidney disease, stage 4 (severe) N18.4 ; Acute non- recurrent maxillary sinusitis J01.00 ; Urinary problem R39.89 ; Bowel habit changes R19.4 ; Functional 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 and History of colon polyps Z86.010 [place] [id number] [place] [address] 75872- 4132 Jul, Dysthymic 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 and Generalized anxiety disorder F41.1 [facility] [id number] [place] [address] 59016- 9480 Jul, [facility] [address] [place] [id number] [place] [address] 69265- 7443 Jul, Dysthymic 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 ; Generalized anxiety disorder F41.1 and nursing home use of drug Z79.899 [facility] [address] [id number] [place] [address] 51317- 3588 Jul, [facility] [address] [place] [id number] [place] [address] 10046- 6081 Jun, [facility] [address] [id number] [place] [address] 34427- 4416 Jun, [place] [address] [address] [id number] [place] [address] 26017- 0938 May, [facility] [address] [id number] [place] [address] 18854- 6058 May, Dysthymic 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 and Generalized anxiety disorder F41.1 [place] [address] [id number] [place] [address] 01648- 6588 Apr, Kidney disease N28.9 [place] [address] [address] [id number] [place] [address] 36381- 3988 Apr, Generalized anxiety disorder F41.1 and Dysthymic 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 [place] [id number] [place] [address] 86953- 5897 Apr, Chronic kidney disease, stage 4 (severe) N18.4 [facility] [id number] [place] [address] 16888- 2288 Apr, Generalized anxiety disorder F41.1 ; Major depression, recurrent F33.9 and Sleep disturbance G47.9 [facility] [id number] [place] [address] 78360- 9517 Mar, Generalized anxiety disorder F41.1 and Dysthymic 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 [facility] [address] [id number] [place] [address] 21143- 6575 Mar, Generalized anxiety disorder F41.1 ; Dysthymic 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 and Insomnia G47.00 [facility] [address] [id number] [place] [address] 89247- 5942 Mar, [facility] [address] 08097- 5955 Mar, [facility] [address] 67071- 3132 Mar, Osteoarthritis of knees, bilateral M17.0 [place] [address] 27837- 0422 Mar, Hypertension I10 ; Hypothyroid E03.9 ; Dysthymic 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 ; Chronic kidney disease, stage 4 (severe) N18.4 and Nausea & vomiting R11.2 [place] [address] 34858- 5132 Mar, Generalized anxiety disorder F41.1 ; Dysthymic 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 and Insomnia G47.00 [place] [address] [place] [id number] [place] [address] 66918- 0570 Mar, Dehydration E86.0 ; Chronic kidney disease, stage 4 (severe ) N18.4 and Nausea & vomiting R11.2 [facility] [address] [id number] [place] [address] 09927 -6573 Mar, Gastroenteritis K52.9 [facility] [address] 28252- 7053 Mar, [facility] [address] [place] [id number] [place] [address] 95707- 6136 Mar, [facility] [address] 54957- 9500 Feb, Dysthymic 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 and Generalized anxiety disorder F41.1 [place] [address] [id number] [place] [address] 91926- 1738 Jan, UTI (urinary tract infection) N39.0 ; Asthma J45.909 ; Coronary artery disease involving hamilton coronary artery of hamilton heart, angina presence unspecified I25.10 ; Hypertension I10 ; Hypothyroid E03.9 ; Vitamin D deficiency E55.9 ; Insomnia G47.00 ; Palpitations R00.2 ; Depressed F32.9 ; Restless leg G25.81 and Anxiety F41.9 [place] [address] [place] [id number] [place] [address] 80593- 9760 Jan, Dysthymic 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 and Generalized anxiety disorder F41.1 [place] [address] [id number] [place] [address] 06204- 3680 Jan, [place] [address] 58290- 2855 Dec, [place] [address] [id number] [place] [address] 49250- 9893 Dec, Alkalosis 276.3 ; Chronic kidney disease, 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.4 ; Hyperpotassemia 276.7 ; Secondary hyperparathyroidism, renal 588.81 ; Proteinuria 791.0 ; Unspecified vitamin D deficiency 268.9 ; Anemia in chronic kidney disease 285.21 ; Other and unspecified hyperlipidemia 272.4 ; Hypertension, essential, benign 401.1 and Chronic kidney disease (CKD), stage III (moderate) 585.3 [place] [address] [place] [id number] [place] [address] 94201- 7538 Dec, [address] 09151- 4272 Dec, Depressive disorder, not elsewhere classified 311 and Generalized anxiety disorder 300.02 [place] [address] [place] [id number] [place] [address] 48274- 0649 Dec, [place] [address] [place] [id number] [place] [address]- 8094 Dec, [facility] [address] [id number] [place] [address] 78069- 6487 Nov, Depressive disorder, not elsewhere classified 311 and Generalized anxiety disorder 300.02 [facility] [address] [id number] [place] [address] 34791- 9634 Nov, Arthritis of both knees 716.96 [place] [address] 07991- 7387 Nov, PAF (paroxysmal atrial fibrillation) 427.31 ; CAD (coronary artery disease) 414.00 ; Chest pain 786.50 and Chronic kidney disease (CKD) stage G4/A1, severely decreased glomerular filtration rate (GFR) between 15-29 mL/min/1.73 square meter and albuminuria creatinine ratio less than 30 mg/g 585.4 [place] [address] 03304- 3262 Oct, Coronary atherosclerosis of unspecified type of vessel, hamilton or graft 414.00 ; Chronic kidney disease, 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.4 ; Hypertension 401.9 and Edema 782.3 [place] [address] [place] [id number] [place] [address] 59625- 0751 Oct, Depressive disorder, not elsewhere classified 311 and Generalized anxiety disorder 300.02 [place] [address] [id number] [place] [address] 80863- 5282 Oct, Depressive disorder, not elsewhere classified 311 and Generalized anxiety disorder 300.02 [facility] [address] [place] [id number] [place] [address] 38338- 9217 Oct, [facility] [address] 73744- 7203 Oct, [facility] [address] [id number] [place] [address] 56004- 5911 Sep, [facility] [address] [place] [id number] [place] [address] 40752- 6587 Sep, Chronic kidney disease, 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.4 [facility] [address] [id number] [place] [address] 33554- 3280 Sep, [facility] [address] [place] [id number] [place] [address] 59190- 9462 Sep, Coronary atherosclerosis of unspecified type of vessel, hamilton or graft 414.00 ; Hypertension 401.9 ; Edema 782.3 and Hypothyroidism 244.9 [place] [address] 51275- 5969 Sep, Coronary atherosclerosis of unspecified type of vessel, hamilton or graft 414.00 ; Hypertension 401.9 ; Fibromyalgia 729.1 ; Edema 782.3 ; Hypothyroidism 244.9 and Anemia 285.9 [place] [id number] [place] [address] 86170- 1261 Sep, Anxiety disorder, unspecified 300.00 and Depressive disorder , not elsewhere classified 311 [place] [address] [place] [id number] [place] [address] 36932- 0702 Sep, [facility] [address] [place] [id number] [place] [address] 68385- 5425 August, Generalized anxiety disorder 300.02 [facility] [address] [id number] [place] [address] 33178- 5159 August, Closed fracture of lateral malleolus 824.2 [place] [address] [id number] [place] [address] 45216- 2708 Jul, [facility] [id number] [place] [address] 69208- 4369 Jul, [facility] [address] [id number] [place] [address] 94741- 4486 Jun, [facility] [address] [id number] [place] [address] 76684- 2043 Jun, [facility] [id number] [place] [address] 90512- 0798 Jun, [facility] [place] [facility] [address] [id number] [place] [address]- 4615 Jun, [facility] [place] [facility] [address] [id number] [place] [address]- 2237 Jun, [facility] [place] [facility] [address] [id number] [place] [address]- 5919 Jun, [facility] [place] [facility] [address] [id number] [place] [address]- 4833 May, 2014 [facility] [place] [facility] [address] [id number] [place] [address]- 7333 May, 2014 [facility] [place] [facility] [address] [id number] [place] [address]- 9482 18 May, 2014 [facility] [place] [facility] [address] [id number] [place] [address]- 5637 18 May, 2014 [facility] [place] [facility] [address] [id number] [place] [address]- 9374 16 May, 2014 [facility] [place] [facility] [address] [id number] [place] [address]- 8730 16 May, 2014 [facility] [place] [facility] [address] [facility] [id number] [place] [address]- 7771 May, 2014 [facility] [place] [facility] [address] [id number] [place] [address]- 6540 May, 2014 [facility] [place] [facility] [address] [id number] [place] [address]- 2761 10 May, 2014 [facility] [place] [facility] [address] [id number] [place] [address]- 9883 10 May, 2014 [facility] [place] [facility] [address] [id number] [place] 8737 Apr, [facility] [place] [facility] [address] [facility] [id number] [place] [address]- 6937 Apr, [facility] [place] [facility] [address] [id number] [place] [address]- 0878 Mar, [facility] [place] [facility] [address] [id number] [place] [address]- 0606 Mar, [facility] [place] [facility] [address] [id number] [place] [address]- 8244 Mar, [facility] [place] [facility] [address] [id number] [place] [address]- 8756 Mar, [facility] [place] [facility] [address] [id number] [place] [address]- 6774 Mar, [facility] [place] [facility] [address] [id number] [place] [address]- 1415 Mar, [facility] [place] [facility] [address] [id number] [place] [address]- 8106 Mar, [facility] [place] [facility] [address] [id number] [place] [address]- 4366 Feb, [facility] [place] [facility] [address] [id number] [place] [address]- 4868 Feb, [facility] [place] [facility] [address] [id number] [place] [address]- 3812 Feb, [facility] [place] [facility] [address] [id number] [place] [address]- 2075 Jan, [facility] [place] [facility] [address] [id number] [place] [address]- 7649 20 Jan, 2014 [facility] [place] [facility] [address] [id number] [place] [address]- 3382 20 Jan, 2014 [facility] [place] [facility] [address] [id number] [place] [address]- 6046 20 Jan, 2014 [facility] [place] [facility] [address] [id number] [place] [address]- 3150 13 Jan, 2014 [facility] [place] [facility] [address] [id number] [place] [address]- 4338 Jan, [facility] [place] [facility] [address] [id number] [place] [address]- 8904 Jan, [facility] [place] [facility] [address] [id number] [place] [address]- 5568 Jan, [facility] [place] [facility] [address] [id number] [place] [address]- 1162 Jan, [facility] [place] [facility] [address] [id number] [place] [address]- 5744 Jan, [facility] [place] [facility] [address] [id number] [place] [address]- 6684 Nov, [facility] [place] [facility] [address] [id number] [place] [address]- 0978 Nov, [facility] [place] [facility] [address] [id number] [place] [address]- 3864 Nov, [facility] [place] [facility] [address] [id number] [place] [address]- 9241 Oct, [facility] [place] [facility] [address] [id number] [place] [address]- 5511 Oct, [facility] [place] [facility] [address] [id number] [place] [address]- 4389 Oct, [facility] [place] [facility] [address] [id number] [place] [address]- 7296 Oct, [facility] [place] [facility] [address] [id number] [place] [address]- 6748 Oct, [facility] [place] [facility] [address] [id number] [place] [address]- 2342 Oct, [facility] [place] [facility] [address] [id number] [place] [address]- 8729 Oct, [facility] [place] [facility] [address] [id number] [place] [address]- 6850 Oct, [facility] [place] [facility] [address] [id number] [place] [address]- 1621 Oct, [facility] [place] [facility] [address] [id number] [place] [address]- 8851 Sep, [facility] [place] [facility] [address] [id number] [place] [address]- 7556 Sep, [facility] [place] [facility] [address] [id number] [place] [address]- 0422 Sep, [facility] [place] [facility] [address] [id number] [place] [address]- 0757 Sep, [facility] [place] [facility] [address] [id number] [place] [address]- 5443 Sep, [facility] [place] [facility] [address] [id number] [place] [address]- 6148 Sep, [facility] [place] [facility] [address] [id number] [place] [address]- 7389 Sep, [facility] [place] [facility] [address] [id number] [place] [address]- 4937 Sep, [facility] [place] [facility] [address] [id number] [place] [address]- 7773 Sep, [facility] [place] [facility] [address] [id number] [place] [address]- 1613 August, [facility] [place] [facility] [address] [id number] [place] [address]- 8139 August, [facility] [place] [facility] [address] [id number] [place] [address]- 5669 August, [facility] [place] [facility] [address] [id number] [place] [address]- 8165 August, [facility] [place] [facility] [address] [id number] [place] [address]- 7093 August, [facility] [place] [facility] [address] [id number] [place] [address]- 8539 August, [facility] [place] [facility] [address] [id number] [place] [address]- 4248 Jul, [facility] [place] [facility] [address] [id number] [place] [address]- 7637 Jul, [facility] [place] [facility] [address] [id number] [place] 7435 Jul, [facility] [place] [facility] [address] [id number] [place] [address]- 3384 Jul, [facility] [place] [facility] [address] [id number] [place] [address]- 6259 Jul, [facility] [place] [facility] [address] [id number] [place] [address]- 4544 Jul, [facility] [place] [facility] [address] [id number] [place] [address]- 7557 Jun, [facility] [place] [facility] [address] [id number] [place] [address]- 0476 Jun, [facility] [place] [facility] [address] [id number] [place] [address]- 8252 May, [facility] [place] [facility] [address] [id number] [place] [address]- 9007 May, [facility] [place] [facility] [address] [id number] [place] [address]- 3883 May, [facility] [place] [facility] [address] [id number] [place] [address]- 6449 May, [facility] [place] [facility] [address] [id number] [place] [address]- 4744 Apr, [facility] [place] [facility] [address] [id number] [place] [address]- 6854 Apr, [facility] [place] [facility] [address] [id number] [place] [address]- 5562 Mar, [facility] [place] [facility] [address] [id number] [address]- 1529 18 Mar, 2013 [facility] [place] [facility] [address] [id number] [place] [address]- 3532 17 Mar, 2013 [facility] [place] [facility] [address] [facility] [id number], [place] [address]- 2531 17 Mar, 2013 [facility] [place] [facility] [address] [facility] [id number] [place] [address]- 4006 05 Mar, 2013 [facility] [place] [facility] [address] [facility] [id number], [place] [address]- 8897 05 Mar, 2013 [facility] [place] [facility] [address] [facility] [id number] [place] [address] 2010 Feb, [facility] [place] [facility] [address] [facility] [id number] [place] [address] Feb, [facility] [place] [facility] [address] [id number] [address] Feb, [facility] [place] [facility] [address] [facility] [id number] [address] Feb, [facility] [place] [facility] [address] [id number] [address] Feb, [facility] [place] [facility] [address] [id number], [place] [address] Feb, [facility] [place] [facility] [address] [facility] [id number], [place] [address] 24 Jan, 2013 [facility] [place] [facility] [address] [facility] [id number], [place] [address] 24 Jan, 2013 [facility] [place] [facility] [address] [facility] [id number][place] [address] 10 Jan, 2013 [facility] [place] [facility] [address] [facility] [id number], [place] [address] 10 Jan, 2013 [facility] [place] [facility] [address] [id number], [place] [address] 08 Jan, 2013 [facility] [place] [facility] [address] [id number] [place] [address] Jan, [facility] [place] [facility] [address] [id number] [place] [address] Dec, [facility] [place] [facility] [address] [id number] [place] [address] Dec, [facility] [place] [facility] [address] [id number] [place] [address] Nov, [facility] [place] [facility] [address] [id number] [place] [address] Nov, [facility] [place] [facility] [address] [id number] [place] [address] Oct, [facility] [place] [facility] [address] [id number] [place] [address] Oct, [facility] [place] [facility] [address] [id number] [place] [address] Oct, [facility] [place] [facility] [address] [id number] [place] [address] Oct, [facility] [place] [facility] [address] [id number] [place] [address] Oct, [facility] [place] [facility] [address] [id number] [place] [address] Oct, [facility] [place] [facility] [address] [id number] [place] [address] Sep, [facility] [place] [facility] [address] [id number] [place] [address] Sep, [facility] [place] [facility] [address] [id number] [place] [address] Sep, [facility] [place] [facility] [address] [id number] [place] [address] Sep, [facility] [place] [facility] [address] [id number] [place] [address] August, [facility] [address] [id number] [place] [address] August, [facility] [address] [id number] [place] [address] August, [facility] [address] [id number] [place] [address] August, [facility] [address] [id number] [place] [address] August, [facility] [address] [id number] [place] [address] Jul, [facility] [address] [id number] [place] [address] Jul, [facility] [address] [id number] [place] [address] Jul, [facility] [address] [id number], [place] [address] Jul, [facility] [address] [id number] [place] [address] Jul, [facility] [address] [id number], [place] [address] Jul, [facility] [address] [id number] [address] Jul, [facility] [address] [id number] [address] Jul, [facility] [address] [id number], [place] [address] Jul, [facility] [address] [id number], [place] [address] Jul, [facility] [address] [id number] [id number] Jun, [facility] [address] [id number], [place] [address] Jun, [facility] [address] [id number] [place] [address] Jun, [facility] [place] [facility] [address] [id number] [place] [address] Jun, [facility] [address] [id number] [place] [address] Jun, [facility] [address] [id number] [place] [address] May, [facility] [address] [id number] [place] [address] 79[address] May, [facility] [address] [id number] [place] [address] May, [facility] [address] [id number] [place] [address] Apr, [facility] [address] [id number] [place] [address] Apr, [facility] [address] [id number] [place] [address] Apr, [facility] [address] [id number] [place] [address] Apr, [facility] [address] [id number] [place] [address] 1558 Apr, [facility] [place] [facility] [address] [id number] [place] [address] 2549 Apr, [facility] [place] [facility] [address] [id number] [place] [address] Mar, [facility] [place] [facility] [address] [id number] [place] [address] 4529 Mar, [facility] [address] [id number] [place] [address]366 Mar, [facility] [place] [facility] [address] [id number] [place] [address] 9111 Mar, [facility] [place] [facility] [address] [id number] [place] [address]463 Feb, [facility] [place] [facility] [address] [id number] [place] [address] Feb, [facility] [place] [facility] [address] [id number] [place] [address]- 96[address] Feb, [facility] [place] [facility] [address] [id number] [place] [address]- [address] Feb, [facility] [place] [facility] [address] [id number] [place] [address] 244[address] Feb, [facility] [place] [facility] [address] [id number] [place] [address] Feb, [facility] [place] [facility] [address] [id number] [place] [address]- 1671 Feb, [facility] [place] [facility] [address] [id number] [place] [address]- [address]84 Feb, [facility] [place] [facility] [address] [id number] [place] [address] Feb, [facility] [place] [facility] [address] [id number] [place] [address] Feb, [facility] [place] [facility] [address] [id number] [place] [address]- [address] Feb, [facility] [place] [facility] [address] [id number] [place] [address] 6465 Feb, [facility] [place] [facility] [address] [id number] [place] [address]- 1099 Feb, [facility] [place] [facility] [address] [id number] [place] [address] 3860 Feb, [facility] [place] [facility] [address] [id number] [place] [address] Feb, [facility] [place] [facility] [address] [id number] [place] [address]- 8199 Feb, [facility] [place] [facility] [address] [id number] [place] [address]- 3940 Jan, [facility] [place] [facility] [address] [facility] [id number] [place] [address]- [address] Jan, [facility] [place] [facility] [address] [id number] [place] [address]- 6935 Jan, [facility] [place] [facility] [address] [id number] [place] [address]- 8250 Jan, [facility] [place] [facility] [address] [id number] [place] [address]- 9875 Jan, [facility] [place] [facility] [address] [id number] [place] [address]- 7222 Jan, [facility] [place] [facility] [address] [id number], [place] [address] Jan, [facility] [place] [facility] [address] [id number], [place] [address] Jan, [facility] [place] [facility] [address] [id number], [place] [address] 16 Jan, 2012 [facility] [place] [facility] [address] [id number], [place] [address] 15 Jan, 2012 [facility] [place] [facility] [address] [id number], [place] [address]- [address]58 15 Jan, 2012 [facility] [place] [facility] [address] [id number] [place] [address] 2547 Jan, [facility] [place] [facility] [address] [facility] [id number], [place] [address]- [address] Dec, [facility] [place] [facility] [address] [id number], [place] [address] 2541 Dec, [facility] [place] [facility] [address] [id number] [place] [address]- 6146 24 Sep, 2011 [facility] [address] [id number] [place] [address] 2546 23 Sep, 2011 [facility] [place] [facility] [address] [id number] [place] [address] 2546 22 Sep, 2011 [facility] [place] [facility] [address] [id number] [place] [address] 2546 21 Sep, 2011 [facility] [place] [facility] [address] [id number] [place] [address] 2546 20 Sep, 2011 [facility] [place] [facility] [address] [id number] [place] [address]- 7036 20 Sep, 2011 [facility] [place] [facility] [address] [id number] [place] [address]- 2546 07 Sep, 2011 [facility] [address] [id number] [place] [address]- 6536 06 Sep, 2011 [facility] [address] [id number] [place] [address]- 5671 06 Sep, 2011 [facility] [place] [facility] [address] [id number] [place] [address] 2545 05 Sep, 2011 [facility] [address] [id number] [place] [address]- 6915 23 Nov, 2011 [facility] [place] [facility] [address] [id number] [place] [address] 2546 17 Nov, 2011 [facility] [place] [facility] [address] [id number] [place] [address]- 2547 13 Nov, 2011 [facility] [place] [facility] [address] [id number] [place] [address] 2546 10 Nov, 2011 [facility] [place] [facility] [address] [id number] [place] [address]- 2546 08 Nov, 2011 [facility] [place] [facility] [address] [id number] [place] [address]- 8642 Nov, [facility] [place] [facility] [address] [id number] [place] [address] Nov, [facility] [place] [facility] [address] [id number] [place] [address]- 4406 Nov, [facility] [place] [facility] [address] [id number] [place] [address]- 5137 Oct, [facility] [place] [facility] [address] [id number] [place] [address]- 9056 Oct, [facility] [place] [facility] [address] [id number] [place] [address]- 8655 Oct, [facility] [place] [facility] [address] [id number] [place] [address]- 2643 Oct, [facility] [place] [facility] [address] [id number] [place] [address]- 9837 Oct, [facility] [place] [facility] [address] [id number] [place] [address]- 6561 Oct, [facility] [place] [facility] [address] [id number] [place] [address]- 4898 Oct, [facility] [place] [facility] [address] [id number] [place] [address]- 2434 Sep, [facility] [place] [facility] [address] [id number] [place] [address]- 2546 Sep, [facility] [place] [facility] [address] [id number] [place] [address]- 5496 August, [facility] [place] [facility] [address] [id number] [place] [address]- 4456 August, [facility] [place] [facility] [address] [id number] [place] [address]- 3506 August, [facility] [place] [facility] [address] [id number] [place] [address]- 2546 August, [facility] [place] [facility] [address] [id number] [place] [address]- 8549 Jul, [facility] [place] [facility] [address] [id number] [place] [address]- 3926 Jul, [facility] [place] [facility] [address] [id number] [place] [address]- 9156 Jul, [facility] [place] [facility] [address] [id number] [place] [address]- 7383 Jul, [facility] [place] [facility] [address] [id number] [place] [address]- 8354 Jul, [facility] [place] [facility] [address] [id number] [place] [address]- 3459 Jul, [facility] [place] [facility] [address] [id number] [place] [address]- 1074 Jul, [facility] [address] [id number] [place] [address]- 0281 Jul, [facility] [place] [facility] [address] [id number] [place] [address]- 5136 Jul, [facility] [place] [facility] [address] [id number] [place] [address]- 3489 Jun, [facility] [place] [facility] [address] [id number] [place] [address]- 6460 Jun, [facility] [place] [facility] [address] [id number] [place] [address]- 0949 15 Jun, 2011 [facility] [place] [facility] [address] [id number] [place] [address]- 1228 14 Jun, 2011 [facility] [place] [facility] [address] [id number] [place] [address]- 7899 12 Jun, 2011 [facility] [place] [facility] [address] [id number] [place] [address]- 4815 Jun, [facility] [place] [facility] [address] [id number] [place] [address]- 7761 Jun, [facility] [place] [facility] [address] [id number] [place] [address]- 2022 May, [facility] [address] [id number] [place] [address]- 3266 24 May, 2011 [facility] [place] [facility] [address] [id number] [place] [address] 2546 16 May, 2011 [facility] [place] [facility] [address] [id number] [place] [address]- 5656 May, [facility] [place] [facility] [address] [id number] [place] [address] 2547 May, [facility] [address] [id number] [place] [address]- 2575 Apr, [facility] [address] [id number] [place] [address]- 0595 Apr, [facility] [address] [id number] [place] [address]- 9026 Apr, [facility] [address] [id number] [place] [address]- 0147 Apr, [facility] [address] [id number] [place] [address]- 2391 Apr, [facility] [address] [id number] [place] [address]- 4689 30 Mar, 2011 [facility] [address] [id number] [place] [address]- 7876 Mar, [facility] [place] [facility] [address] [id number] [place] [address]- 1595 Mar, [facility] [place] [facility] [address] [id number] [place] [address]- 2546 Mar, [facility] [place] [facility] [address] [id number] [place] [address]- 2867 08 Mar, 2011 [facility] [place] [facility] [address] [id number] [place] [address]- 8236 08 Mar, 2011 [facility] [place] [facility] [address] [id number] [place] [address] Mar, [facility] [place] [facility] [address] [id number] [place] [address]- 6672 Feb, [facility] [place] [facility] [address] [id number] [place] [address]- 6715 Feb, [facility] [place] [facility] [address] [id number] [place] [address]- 0745 Feb, [facility] [place] [facility] [address] [id number] [place] [address]- 5303 Feb, [facility] [place] [facility] [address] [id number] [place] [address]793 Jan, [facility] [place] [facility] [address] [id number] [place] [address]- 3972 Jan, [facility] [place] [facility] [address] [id number] [place] [address]- 0730 Jan, [facility] [place] [facility] [address] [id number] [place] [address]- 8318 Jan, [facility] [place] [facility] [address] [id number] [place] [address]- 5650 Nov, [facility] [place] [facility] [address] [id number] [place] [address]- 4098 Mar, [facility] [place] [facility] [address] [id number] [place] [address]- 1708 Mar, [facility] [place] [facility] [address] [id number] [place] [address]- 2991 Mar, [facility] [place] [facility] [address] [id number] [place] [address]- 7065 Mar, [facility] [place] [facility] [address] [id number] [place] [address]- 3240 Mar, [facility] [place] [facility] [address] [facility] [id number] [place] [address]- 2546 Mar, [facility] [address] [facility] [id number] [address]957 Feb, [facility] [address] [id number] [address]881 Feb, [facility] [address] [id number] [address]158 Jan, [facility] [address] [id number] [id number]19 Jan, [facility] [id number] [address] [address]12 Jan, IMMUNIZATIONS No Known Immunizations SOCIAL HISTORY Never Assessed REASON FOR VISIT Controlled Refill 03/26 PLAN OF CARE VITAL SIGNS MEDICATIONS Medication Instructions Dosage Frequency Start Date End Date Duration Status Gemfibrozil 600 mg TAKE ONE TABLET BY MOUTH TWICE DAILY 30 Active Lyrica 150 MG Orally 2 times a day 1 capsule 12h 28 days Active RESULTS No Results PROCEDURES No Known procedures INSTRUCTIONS MEDICATIONS ADMINISTERED No Known Medications MEDICAL (GENERAL) HISTORY Type Description Date Medical History cardiovascular disease-angina, Afib Medical History hypertension Medical History asthma Medical History hernia-01/2011 Medical History hyperlipidemia Medical History thyroid disorder-hypothyroidism Medical History fibromyalgia Medical History anemia Medical History renal disease-stage 4 Medical History zinker diverticulum was to see [place] for this but cant affects swallowing. had a swallow study Medical History Closed fracture of lateral malleolus Medical History Female stress incontinence Medical History [place] Medical History arthritis Medical History CT chest 05/2017 revealed hypodensity of paratracheal region. Radiologist rec CT 3-6 months with contrast Medical History Anemia, normocytic Medical History CPAP Noncompliance_ Dr. Madden advises agains driving. Medical History Bacterial meningitis 12/2016 Medical History hole in retina Surgical History cholecystectomy Surgical History appendectomy Surgical History hysterectomy-fibroids Surgical History section Surgical History neuroplasty with transposition of median nerve at carpal tunnel-bilateral carpal tunnel surgery (summer) Surgical History Esophageal surgery-Dr. Cruz 06/2015 Surgical History Colonoscopy History of Polyps No Polyps on 2016 scope due to have repeat 2020 & 2007 Surgical History Bladder surgery [facility] 03/2016 Surgical History Neurotransmitter placed 10/2017 Surgical History retninal repair 12/31/2017 Hospitalization History Surgeries Only Hospitalization History bacterial meningitis December 2016 Hospitalization History [facility] psych for SI 1988 Hospitalization History [facility]-Altered mental status 05/2017
--- OUTSIDE RECORDS SUMMARY | 2018-05-29 07:27 | XMS REPORT ---
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 Name Role Phone FIDEL FRANCIS Unavailable PROBLEMS Type Condition ICD9-CM Code [id number] Code Onset Dates Condition Status SNOMED Code Problem Generalized anxiety disorder F41.1 Active 29756395 Problem Low back pain M54.5 Active 744292541 Problem Coronary artery disease involving minto coronary artery of minto heart, angina presence unspecified I25.10 Active 7049926177178 Problem Dysthymic 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 Active 15202113 Problem Restless leg G25.81 Active 41110590 Problem Hypothyroid E03.9 Active 71063215 Problem Insomnia G47.00 Active 792368670 Problem Asthma J45.909 Active 341639821 Problem Palpitations R00.2 Active 21087982 Problem Anemia in chronic kidney disease D63.1 Active 951109680886060 Problem Depressed F32.9 Active 51569647 Problem Bipolar disorder, current episode manic without psychotic features F31.10 Active 390605326 Problem Chronic kidney disease, stage 4 (severe) N18.4 Active 923415374 Problem Degenerative tear of medial meniscus of left knee M23.204 Active 048317065 Problem Mood disorder F39 Active 36747582 Problem Primary osteoarthritis of left knee M17.12 Active 137204511 Problem Perimenopausal vasomotor symptoms N95.1 Active 939817481 Problem Chronic pain syndrome G89.4 Active 339124266 Problem Asthma with acute exacerbation in adult J45.901 Active 144899425 Problem History of colon polyps Z86.010 Active 924098879 Problem Functional 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 Active 36138718 Problem Body mass index (BMI) of 40.0-44.9 in adult Z68.41 Active 102468174 Problem Stage 3 chronic kidney disease N18.3 Active 783282945 Problem Restless leg syndrome G25.81 Active 16604393 Problem Seasonal allergic rhinitis due to pollen J30.1 Active 58781763 Problem Long-term use of high-risk medication Z79.899 Active 370467568 Problem Hypokalemia E87.6 Active 88973511 Problem Abnormal chest CT R93.8 Active 283162436 Problem Fibromyalgia M79.7 Active 520132118 Problem History of anemia Z86.2 Active 655283910 Problem Other seasonal allergic rhinitis J30.2 Active 286035953 Problem Essential (primary) hypertension I10 Active 10251204 Problem Chronic kidney disease, unspecified N18.9 Active 452712855 Problem Mixed stress and urge urinary incontinence N39.46 Active 111504750 Problem Vitamin D deficiency E55.9 Active 81984464 ALLERGIES No Known Allergies ENCOUNTERS Encounter Location Date Diagnosis [facility] [address] [address] Mar, [facility] [address] [address] Feb, [facility] [address] [address]- 235[address] Feb, [facility] [address] [address]- [address] 14 Feb, 2018 [facility] [address] [address]- [address] 12 Feb, 2018 [facility] [address] [address]- [address] Feb, Fibromyalgia M79.7 [facility] [address] [address]- 6[address] 08 Feb, 2018 Complicated UTI (urinary tract infection) N39.0 [facility] [address] [address]- [address] 07 Feb, 2018 [facility] [address] [address]- [address] 31 Jan, 2018 Generalized anxiety disorder F41.1 and Major depressive disorder, recurrent episode with anxious distress F33.9 [facility] [address] [place] [address] Jan, Acute conjunctivitis of left eye, unspecified acute conjunctivitis type H10.32 [place] [address] [address]- [address]96 Jan, [place] [address] [address]- [address] Jan, Acute non-recurrent maxillary sinusitis J01.00 ; Dysuria R30.0 ; Perimenopausal vasomotor symptoms N95.1 and Fibromyalgia M79.7 [place] [address] [address]- [address] Dec, Vitamin D deficiency E55.9 [place] [address] 56585- 3666 Dec, Vitamin D deficiency E55.9 [place] [address] 43169- 1772 Dec, Vitamin D deficiency E55.9 [place] [address] 6[address]- 4975 Dec, [place] [address] [address]- 5059 Dec, Fibromyalgia M79.7 [place] [address] [address]- 1588 Nov, [place] [address] [place] [id number] [place] [address] 30736- 2650 Nov, [place] [address] [place] [id number] [place] [address] 03025- 4894 Nov, [facility] [address] [address]- [address] Nov, Fibromyalgia M79.7 ; Vision changes H53.9 ; Chest wall pain R07.89 and Chronic pain syndrome G89.4 [place] [address] 26[address]- 4[address] Nov, [facility] [id number] [place] [address] 29105- 3836 Nov, Rash of hands R21 [place] [address] [place] [id number] [place] [address] 45895- 7177 Nov, Generalized anxiety disorder F41.1 and Major depressive disorder, recurrent episode with anxious distress F33.9 [place] [address] [place] [id number] [place] [address] 40824- 6384 Nov, Fibromyalgia M79.7 [place] [address] [place] [id number] [place] [address] 92666- 1946 Nov, Complicated UTI (urinary tract infection) N39.0 [place] [address] [place] [id number] [place] [address] 79936- 6697 Oct, [place] [address] [place] [id number] [place] [address] 80328- 0990 Oct, Generalized anxiety disorder F41.1 and Major depressive disorder, recurrent episode with anxious distress F33.9 [place] [address] [place] [id number] [place] [address] 68819- 9756 Oct, [place] [address] [place] [id number] [place] [address] 79240- 3353 Oct, Fibromyalgia M79.7 [place] [address] [place] [id number] [place] [address] 47143- 1130 Sep, Restless leg syndrome G25.81 and Restless leg G25.81 [place] [address] [place] [address] 59962- 7883 Sep, [place] [address] [place] [id number] [place] [address] 47576- 6831 Sep, Seasonal allergic rhinitis due to pollen J30.1 ; Screening for breast cancer Z12.31 ; Chest pain at rest R07.9 ; Restless leg syndrome G25.81 ; Essential (primary) hypertension I10 and Depressed F32.9 [place] [address] [address] August, Fibromyalgia M79.7 [facility] [address] [place] [id number] [place] [address] 20140- 4756 August, [facility] [address] [place] [id number] [place] [address] 32242- 3885 August, [facility] [address] [place] [id number] [place] [address] 83697- [address] August, Ab[address] chest [address] R93.8 [facility] [address] [place] [id number] [place] [address] 27919- 8271 August, Generalized anxiety disorder F41.1 and Major depressive disorder, recurrent episode with anxious distress F33.9 [place] [address] [place] [id number] [place] [address] 15768- 3273 August, Ab[address] R93.8 [place] [address] [place] [id number] [place] [address] 74033- 1434 Jul, [facility] [address] [place] [id number] [place] [address] 09130- 4825 Jul, Chronic kidney disease, stage 4 (severe) N18.4 [facility] [address] [place] [id number] [place] [address] 69973- 5808 Jul, [place] [address] [place] [id number] [place] [address] 49549- 6427 Jul, Restless leg G25.81 ; Mixed stress and urge urinary incontinence N39.46 and Fibromyalgia M79.7 [facility] [address] [place] [id number] [place] [address] 03543- 6633 Jul, Chronic kidney disease, stage 4 (severe) N18.4 [facility] [address] [place] [id number] [place] [address] 72642- 9179 Jun, Orthostatic hypotension I95.1 ; Chronic kidney disease, stage 4 (severe) N18.4 ; Chest wall discomfort R07.89 and Body mass index (BMI) of 40.0-44.9 in adult Z68.41 [facility] [address] [place] [id number] [place] [address] 94793- 4042 Jun, [facility] [address] [place] [id number] [place] [address] 34111- 9762 Jun, Orthostatic hypotension I95.1 [facility] [address] 178[address]- 8234 Jun, [facility] [address] [place] [id number] [place] [address] 19349 -4685 Jun, Orthostatic hypotension I95.1 ; Dysuria R30.0 and Acute cystitis without hematuria N30.00 [facility] [address] [place] [id number] [place] [address] 01177- 5650 Jun, [facility] [address] 46772- 6166 Jun, Chronic kidney disease, stage 4 (severe) N18.4 [place] [address] [place] [id number] [place] [address] 55606- 1604 Jun, Fibromyalgia M79.7 [facility] [address] [place] [id number] [place] [address] 25783- 0732 Jun, [facility] [address] [place] [id number] [place] [address] 72979- 0221 Jun, [facility] [address] [place] [id number] [place] [address] 27267- [address] May, [address] R93.8 and Stage 3 chronic kidney disease N18.3 [facility] [address] [place] [id number] [place] [address] 16874- 6042 May, Chronic kidney disease, stage 4 (severe) N18.4 [facility] [address] [place] [id number] [place] [address] 69062- 7392 May, Chronic kidney disease, stage 4 (severe) N18.4 [place] [id number] [place] [address] 48737- 3318 May, [address] R93.8 [facility] [address] [place] [id number] [place] [address] 61196- 1464 May, [facility] [address] [place] [id number] [place] [address] 48703- 4386 May, [facility] [address] [place] [id number] [place] [address] 10582- 3234 May, Generalized anxiety disorder F41.1 and Major depressive disorder, recurrent episode with anxious distress F33.9 [place] [address] [place] [id number] [place] [address] 92117- 6703 May, Mood disorder F39 [place] [address] [place] [id number] [place] [address] 07255- 9961 Apr, [place] [address] [place] [id number] [place] [address] 86247- 9515 Apr, Infected skin lesion L08.9 and Muscle strain of right shoulder region, initial encounter S46.911A [place] [address] [place] [id number] [place] [address] 12536- 8107 Apr, Generalized anxiety disorder F41.1 and Major depressive disorder, recurrent episode with anxious distress F33.9 [place] [id number] [place] [address] 33200- 5323 Apr, [facility] [address] [place] [address] 01094- 1547 Apr, Recent urinary tract infection Z87.440 and Hypothyroid E03.9 [facility] [address] [place] [address] 53562- 7048 Apr, Generalized anxiety disorder F41.1 and Major depressive disorder, recurrent episode with anxious distress F33.9 [place] [address] [place] [address] 85100- 3186 Apr, Recent urinary tract infection Z87.440 [facility] [address] [address] 7768 Mar, [facility] [id number] [place] [address] 39013 -2119 Mar, Dysuria R30.0 ; Acute cystitis without hematuria N30.00 and BMI 40.0-44.9, adult Z68.41 [place] [address] [place] [id number] [place] [address] 76380- 3519 Mar, [place] [address] [place] [id number] [place] [address] 84799- 0011 Mar, [place] [address] [place] [id number] [place] [address] 31799- 5650 Mar, Generalized anxiety disorder F41.1 and Major depressive disorder, recurrent episode with anxious distress F33.9 [place] [address] [place] [id number] [place] [address] 58699- 6200 Feb, Conjunctivitis, bacterial H10.9 [place] [address] [place] [id number] [place] [address] 81409- 3366 Feb, [facility] [place] [id number] [place] [address] 95005 -5123 Feb, Conjunctivitis, bacterial H10.9 [place] [id number] [place] [address] 08993- 7258 Feb, [facility] [id number] [place] [address] 61952 -1788 Feb, Dysuria R30.0 ; Acute cystitis N30.00 and BMI 40.0-44.9, adult Z68.41 [place] [id number] [place] [address] 09961- 8618 08 Feb, 2017 [facility] [id number] [place] [address] 95192- 9649 Feb, Generalized anxiety disorder F41.1 and Major depressive disorder, recurrent episode with anxious distress F33.9 [place] [address] [place] [id number] [place] [address] 47334- 5436 Feb, Mood disorder F39 and BMI 40.0-44.9, adult Z68.41 [place] [address] [place] [id number] [place] [address] 02803- 6990 Jan, [place] [address] 56835- 1032 Jan, [place] [address] 24420- 8523 Jan, Hypothyroid E03.9 [place] [address] 75862- 2746 Jan, [place] [address] 89023- 4811 Jan, Chronic kidney disease, unspecified N18.9 ; Hypokalemia E87.6 ; Essential (primary) hypertension I10 ; Fibromyalgia M79.7 ; Coronary artery disease involving minto coronary artery of minto heart, angina presence unspecified I25.10 ; Hypothyroid E03.9 and Encounter for immunization Z23 [place] [address] [place] [id number] [place] [address] 31149- 0715 Jan, Hypothyroid E03.9 [place] [address] [place] [id number] [place] [address] 85475- 1008 Jan, [place] [address] [place] [id number] [place] [address] 82161- 2264 Dec, Vitamin D deficiency E55.9 [place] [address] [place] [id number] [place] [address] 38326- 8059 Dec, Primary osteoarthritis of left knee M17.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 [place] [address] [place] [id number] [place] [address] 14738- 3397 Dec, Fibromyalgia M79.7 [place] [address], [place] [address]- 7369 18 Sep, 2017 Mood disorder F39 [facility] [address] [place] [id number] [place] [address] 61335- 1996 13 Dec, 2016 [facility] [address] [place] [address] 86107- 7504 2016 Generalized anxiety disorder F41.1 and Major depressive disorder, recurrent episode with anxious distress F33.9 [facility] [address] [place] [address] 79267- 8534 11 Dec, 2016 [facility] [address] [place] [id number] [place] [address] 40585- 2006 08 Dec, 2016 Streptococcal meningitis G00.2 [facility] [address] [place] [address] 78417- 1110 07 Dec, 2016 Streptococcal meningitis G00.2 [facility] [address] [place] [address] 87053- 9989 07 Dec, 2016 [facility] [address] [place] [address] 41418- 3077 06 Dec, 2016 Streptococcal meningitis G00.2 [facility] [address] [place] [address] 65440- 4692 06 Dec, 2016 [facility] [address] [place] [address] 34200- 6077 06 Dec, 2016 Major depressive disorder, recurrent episode with anxious distress F33.9 [facility] [address], [place] [address]- 9402 Nov, Fever, unspecified fever cause R50.9 [facility] [address], [place] [address]- 4712 24 Nov, 2016 [facility] [address] [place] [address] 74511- 9481 16 Nov, 2016 Hypothyroid E03.9 [facility] [address] [place] [id number] [place] [address] 54364- 8233 Nov, Generalized anxiety disorder F41.1 and Major depressive disorder, recurrent episode with anxious distress F33.9 [facility] [address] [place] [id number] [place] [address] 48602- 1095 Nov, [facility] [address] [place] [address] [id number] Oct, Dental examination Z01.20 [facility] [address] [place] [id number] [place] [address] 63271- 8253 Oct, Generalized anxiety disorder F41.1 and Major depressive disorder, recurrent episode with anxious distress F33.9 [facility] [address] [place] [id number] [place] [address] 25661- 4196 Oct, Chronic kidney disease, stage 4 (severe) N18.4 [place] [address] [place] [id number] [place] [address] 42040- 8289 Oct, [facility] [address] [place] [id number] [place] [address] 15403- 6394 Oct, Fibromyalgia M79.7 [facility] [address] [place] [id number] [place] [address] 00833- 7217 Oct, [facility] [address] [place] [id number] [place] [address] 36262- 5835 Oct, Generalized anxiety disorder F41.1 ; Major depressive disorder, recurrent episode with anxious distress F33.9 and Bipolar disorder, current episode manic without psychotic features F31.10 [facility] [address] [place] [address] 89139- 7049 Sep, [facility] [address] [place] [id number] [place] [address] 84148- 4185 Sep, [facility] [address] [place] [id number] [place] [address] 66216- 9221 Sep, Vitamin D deficiency E55.9 [facility] [address] [place] [id number] [place] [address] 09266- 7862 Sep, Vitamin D deficiency E55.9 [place] [address] [place] [address] 59962- 4497 Sep, [place] [address] [place] [id number] [place] [address] 49634- 4582 Sep, Chronic kidney disease, stage 4 (severe) N18.4 ; Hypothyroid E03.9 ; Restless leg G25.81 ; Fibromyalgia M79.7 ; Essential ( primary) hypertension I10 ; Vitamin D deficiency E55.9 ; Dyspepsia R10.13 ; Anemia in chronic kidney disease D63.1 ; Chronic kidney disease, unspecified N18.9 ; Coronary artery disease involving minto coronary artery of minto heart , angina presence unspecified I25.10 ; Screening breast examination Z12.39 and Low back pain M54.5 [place] [address] [place] [id number] [place] [address] 31825- 0800 August, Generalized anxiety disorder F41.1 and Major depressive disorder, recurrent episode with anxious distress F33.9 [place] [address] [place] [id number] [place] [address] 69744- 2161 August, Generalized anxiety disorder F41.1 and Major depressive disorder, recurrent episode with anxious distress F33.9 [place] [address] [place] [id number] [place] [address] 82233- 0235 August, Fibromyalgia M79.7 [place] [address] [place] [id number] [place] [address] 88909- 9846 Jul, Generalized anxiety disorder F41.1 and Major depressive disorder, recurrent episode with anxious distress F33.9 [place] [id number] [place] [address] 24106- 0822 Jul, Fibromyalgia M79.7 [place] [address] [place] [id number] [place] [address] 40147- 5183 Jul, Generalized anxiety disorder F41.1 [place] [address] [place] [id number] [place] [address] 93678- 1369 May, [place] [address] [place] [id number] [place] [address] 80996- 2139 May, Hypothyroid E03.9 [place] [address] [place] [id number] [place] [address] 74937- 9211 May, Chronic kidney disease, stage 4 (severe) N18.4 ; Hypothyroid E03.9 ; Restless leg G25.81 ; Fibromyalgia M79.7 ; Essential ( primary) hypertension I10 ; Vitamin D deficiency E55.9 ; Dyspepsia R10.13 ; Acute non-recurrent maxillary sinusitis J01.00 ; Anemia in chronic kidney disease D63.1 ; Chronic kidney disease, unspecified N18.9 and Coronary artery disease involving minto coronary artery of minto heart, angina presence unspecified I25.10 [place] [address] [place] [id number] [place] [address] 35200- 2615 May, Vitamin D deficiency, unspecified E55.9 [place] [address] [place] [id number] [place] [address] 29533- 6002 May, Generalized anxiety disorder F41.1 and Major depressive disorder, recurrent episode with anxious distress F33.9 [place] [address] [place] [id number] [place] [address] 21993- 7348 Apr, Pain in right knee M25.561 and Pain in left knee M25.562 [place] [address] [place] [id number] [place] [address] 18505- 2741 Apr, [place] [address] [place] [id number] [place] [address] 58765- 7388 Apr, [place] [address] [place] [id number] [place] [address] 08238- 3732 Apr, [place] [address] [place] [id number] [place] [address] 40246- 9281 Mar, Generalized anxiety disorder F41.1 and Major depressive disorder, recurrent episode with anxious distress F33.9 [place] [address] 063[address]- 3079 Mar, Generalized anxiety disorder F41.1 and Major depressive disorder, recurrent episode with anxious distress F33.9 [place] [id number] [place] [address] 07239- 4133 Mar, [facility] [id number] [place] [address] 81267- 2107 Mar, [place] [address] 17807- 7993 Mar, [place] [address] 29307- 6864 Mar, Asthma J45.909 and Fibromyalgia M79.7 [place] [address] 03414- 0002 Mar, Chronic kidney disease, stage 4 (severe) N18.4 ; Vitamin D deficiency E55.9 and Essential (primary) hypertension I10 [place] [id number] [place] [address] 53433- 5533 Feb, [place] [id number] [place] [address] 49920- 2287 Feb, Dysuria R30.0 ; Mixed stress and urge urinary incontinence N39.46 ; Fibromyalgia M79.7 and Chronic kidney disease, stage IV (severe) N18.4 [place] [id number] [place] [address] 51966- 0297 Feb, Chronic kidney disease, stage 4 (severe) N18.4 [place] [id number] [place] [address] 27154- 8945 Feb, Chronic kidney disease, stage 4 (severe) N18.4 [place] [id number] [place] [address] 83220- 2812 Feb, [place] [id number] [place] [address] 45548- 6229 Feb, Vitamin D deficiency, unspecified E55.9 [place] [id number] [place] [address] 01394- 3979 Jan, [facility] [id number] [place] [address] 17361- 0191 Jan, [facility] [id number] [place] [address] 07307- 0017 Dec, [place] [address] 73647- 6327 Dec, Chronic kidney disease, stage 4 (severe) N18.4 [place] [id number] [place] [address] 65659- 7479 Dec, Dysthymic 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 and Generalized anxiety disorder F41.1 [facility] [id number] [place] [address] 72513- 9091 Dec, [facility] [id number] [place] [address] 33683- 8334 Dec, [facility] [id number] [place] [address] 01441- 4190 Dec, Dysthymic 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 and Generalized anxiety disorder F41.1 [facility] [id number] [place] [address] 67564- 7399 Dec, Dysuria R30.0 ; Chronic kidney disease, stage 4 (severe) N18.4 ; Hypertension I10 ; Dyspepsia R10.13 ; Yeast dermatitis B37.2 ; Palpitations R00.2 ; Hypothyroid E03.9 ; Functional 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 and Other seasonal allergic rhinitis J30.2 [facility] [id number] [place] [address] 79580 -2069 Dec, [facility] [id number] [place] [address] 50792 -7117 Nov, Dysuria R30.0 and Stress incontinence N39.3 [facility] [id number] [place] [address] 84072- 4920 Nov, [facility] [id number] [place] [address] 44455- 8808 Nov, [facility] [id number] [place] [address] 17411- 2677 Nov, Osteoarthritis of knees, bilateral M17.0 [facility] [id number] [place] [address] 20564- 4097 Nov, Dysthymic 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 and Generalized anxiety disorder F41.1 [facility] [id number] [place] [address] 60959- 0831 Nov, [facility] [id number] [place] [address] 50306- 4522 Nov, [facility] [id number] [place] [address] 39191- 8875 Nov, Urgency of urination R39.15 [facility] [id number] [place] [address] 57148- 1444 Nov, [facility] [id number] [place] [address] 65775- 9673 Nov, Chronic kidney disease, stage 4 (severe) N18.4 [facility] [id number] [place] [address] 63169- 4906 Oct, Hypertension I10 ; Coronary artery disease involving minto coronary artery of minto heart, angina presence unspecified I25.10 ; Palpitations R00.2 ; Hypothyroid E03.9 ; Right foot pain M79.671 ; Functional 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 and Other seasonal allergic rhinitis J30.2 [facility] [id number] [place] [address] 77413- 7648 Oct, Dysthymic 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 and Generalized anxiety disorder F41.1 [facility] [id number] [place] [address] 96591- 7392 Sep, [facility] [address] [place] [address] 6456 Sep, [facility] [id number] [place] [address] 73103- 5611 Sep, [facility] [id number] [place] [address] 68274- 7666 Sep, [facility] [id number] [place] [address] 16782- 8324 Sep, [facility] [id number] [place] [address] 69131- 6568 Sep, Dysthymic 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 and Generalized anxiety disorder F41.1 [facility] [id number] [place] [address] 22070- 8902 16 Sep, 2015 Asthma with acute exacerbation in adult J45.901 ; Dysuria R30.0 ; Chronic kidney disease, stage 4 (severe) N18.4 and History of anemia Z86.2 [facility] [id number] [place] [address] 55570- 8894 2015 Generalized anxiety disorder F41.1 and Dysthymic 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 [facility] [id number] [place] [address] 39540- 1781 August, Screening breast examination Z12.39 and Acute recurrent maxillary sinusitis J01.01 [facility] [id number] [place] [address] 88600- 9381 August, Osteoarthritis of knees, bilateral M17.0 [facility] [id number] [place] [address] 66839- 0711 August, Chronic kidney disease, stage 4 (severe) N18.4 ; Acute non- recurrent maxillary sinusitis J01.00 ; Urinary problem R39.89 ; Bowel habit changes R19.4 ; Functional 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 and History of colon polyps Z86.010 [facility] [address] [address]- 8382 Jul, Dysthymic 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 and Generalized anxiety disorder F41.1 [facility] [id number] [place] [address] 28310- 6133 Jul, [facility] [id number] [place] [address] 77215- 9670 Jul, Dysthymic 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 ; Generalized anxiety disorder F41.1 and long term care social worker use of drug Z79.899 [facility] [id number] [place] [address] 86622- 2924 Jul, [facility] [id number] [place] [address] 47268- 9871 Jun, [facility] [id number] [place] [address] 50819- 7965 Jun, [facility] [id number] [place] [address] 14933- 2898 May, [facility] [id number] [place] [address] 59013- 1703 May, Dysthymic 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 and Generalized anxiety disorder F41.1 [facility] [id number] [place] [address] 85737- 9370 Apr, Kidney disease N28.9 [facility] [id number] [place] [address] 87666- 1791 Apr, Generalized anxiety disorder F41.1 and Dysthymic 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 [facility] [id number] [place] [address] 84062- 2885 Apr, Chronic kidney disease, stage 4 (severe) N18.4 [facility] [id number] [place] [address] 04455- 8653 Apr, Generalized anxiety disorder F41.1 ; Major depression, recurrent F33.9 and Sleep disturbance G47.9 [facility] [id number] [place] [address] 54918- 3333 Mar, Generalized anxiety disorder F41.1 and Dysthymic 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 [facility] [id number] [place] [address] 87715- 1396 Mar, Generalized anxiety disorder F41.1 ; Dysthymic 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 and Insomnia G47.00 [facility] [id number] [place] [address] 88959- 7167 Mar, [facility] [address] 91189- 1661 Mar, [facility] [id number] [place] [address] 98124- 1292 Mar, Osteoarthritis of knees, bilateral M17.0 [facility] [address] 33760- 4617 Mar, Hypertension I10 ; Hypothyroid E03.9 ; Dysthymic 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 ; Chronic kidney disease, stage 4 (severe) N18.4 and Nausea & vomiting R11.2 [facility] [id number] [place] [address] 16176- 2519 Mar, Generalized anxiety disorder F41.1 ; Dysthymic 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 and Insomnia G47.00 [facility] [id number] [place] [address] 76238- 7328 Mar, Dehydration E86.0 ; Chronic kidney disease, stage 4 (severe ) N18.4 and Nausea & vomiting R11.2 [facility] [id number] [place] [address] 85576 -9269 08 Mar, 2015 Gastroenteritis K52.9 [facility] [id number] [place] [address] 79075- 8874 Mar, [facility] [id number] [place] [address] 71477- 4324 Mar, [facility] [id number] [place] [address] 83942- 9765 Feb, Dysthymic 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 and Generalized anxiety disorder F41.1 [facility] [id number] [place] [address] 28631- 0074 Jan, UTI (urinary tract infection) N39.0 ; Asthma J45.909 ; Coronary artery disease involving minto coronary artery of minto heart, angina presence unspecified I25.10 ; Hypertension I10 ; Hypothyroid E03.9 ; Vitamin D deficiency E55.9 ; Insomnia G47.00 ; Palpitations R00.2 ; Depressed F32.9 ; Restless leg G25.81 and Anxiety F41.9 [facility] [id number] [place] [address] 29490- 7038 Jan, Dysthymic 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 and Generalized anxiety disorder F41.1 [facility] [id number] [place] [address] 98138- 9350 Jan, [facility] [address] 43783- 7113 30 Dec, 2014 [facility] [id number] [place] [address] 32399- 4223 28 Dec, 2014 Alkalosis 276.3 ; Chronic kidney disease, 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.4 ; Hyperpotassemia 276.7 ; Secondary hyperparathyroidism, renal 588.81 ; Proteinuria 791.0 ; Unspecified vitamin D deficiency 268.9 ; Anemia in chronic kidney disease 285.21 ; Other and unspecified hyperlipidemia 272.4 ; Hypertension, essential, benign 401.1 and Chronic kidney disease (CKD), stage III (moderate) 585.3 [facility] [id number] [place] [address] 78077- 3273 Dec, [address] 17376- 7037 Dec, Depressive disorder, not elsewhere classified 311 and Generalized anxiety disorder 300.02 [facility] [id number] [place] [address] 11467- 8119 Dec, [facility] [address] 94782- 9512 Dec, [facility] [id number] [place] [address] 94931- 6398 Nov, Depressive disorder, not elsewhere classified 311 and Generalized anxiety disorder 300.02 [facility] [id number] [place] [address] 05901- 2140 Nov, Arthritis of both knees 716.[address] 20559- 4822 Nov, PAF (paroxysmal atrial fibrillation) 427.31 ; CAD (coronary artery disease) 414.00 ; Chest pain 786.50 and Chronic kidney disease (CKD) stage G4/A1, severely decreased glomerular filtration rate (GFR) between 15-29 mL/min/1.73 square meter and albuminuria creatinine ratio less than 30 mg/g 585.4 [id number] [place] [address] 77292- 8477 Oct, Coronary atherosclerosis of unspecified type of vessel, minto or graft 414.00 ; Chronic kidney disease, 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.4 ; Hypertension 401.9 and Edema 782.3 [id number] [place] [address] 55586- 4643 Oct, Depressive disorder, not elsewhere classified 311 and Generalized anxiety disorder 300.02 [facility] [id number] [place] [address] 67729- 7133 Oct, Depressive disorder, not elsewhere classified 311 and Generalized anxiety disorder 300.02 [facility] [id number] [place] [address] 70807- 4827 Oct, [facility] [id number] [place] [address] 32123- 6539 Oct, [facility] [id number] [place] [address] 60463- 0447 Sep, [facility] [id number] [place] [address] 89132- 6259 Sep, Chronic kidney disease, 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.4 [facility] [id number] [place] [address] 57372- 7118 Sep, [facility] [id number] [place] [address] 39908- 5908 Sep, Coronary atherosclerosis of unspecified type of vessel, minto or graft 414.00 ; Hypertension 401.9 ; Edema 782.3 and Hypothyroidism 244.9 [facility] [address] 24412- 4471 Sep, Coronary atherosclerosis of unspecified type of vessel, minto or graft 414.00 ; Hypertension 401.9 ; Fibromyalgia 729.1 ; Edema 782.3 ; Hypothyroidism 244.9 and Anemia 285.9 [facility] [address] 37987- 5932 Sep, Anxiety disorder, unspecified 300.00 and Depressive disorder , not elsewhere classified 311 [facility] [address] 19208- 2912 Sep, [facility] [address] 53789- 1629 August, Generalized anxiety disorder 300.02 [facility] [id number] [place] [address] 48276- 5053 August, Closed fracture of lateral malleolus 824.2 [facility] [id number] [place] [address] 05037- 0730 Jul, [facility] [id number] [place] [address] 64736- 6321 Jul, [facility] [id number] [place] [address] 38300- 4467 Jun, [place] [facility] [address] 37426- 4934 Jun, [facility] [id number] [place] [address] 53072- 5030 Jun, [facility] [place] [facility] [address] [id number] [place] [address]- 6952 Jun, [facility] [place] [facility] [address] [id number] [place] [address]- 5965 Jun, [facility] [place] [facility] [address] [id number] [place] [address]- 5717 Jun, [facility] [place] [facility] [address] [id number] [place] [address]- 2881 May, 2014 [facility] [place] [facility] [address] [id number] [place] [address]- 0617 May, 2014 [facility] [place] [facility] [address] [id number] [place] [address]- 9547 May, 2014 [facility] [place] [facility] [address] [id number] [place] [address]- 0372 May, 2014 [facility] [place] [facility] [address] [id number] [place] [address]- 6710 16 May, 2014 [facility] [place] [facility] [address] [id number] [place] [address]- 5015 16 May, 2014 [facility] [place] [facility] [address] [id number] [place] [address]- 8391 May, 2014 [facility] [place] [facility] [address] [id number] [place] [address]- 3762 May, 2014 [facility] [place] [facility] [address] [id number] [place] [address]- 6279 May, 2014 [facility] [place] [facility] [address] [id number] [place] [address]- 1257 May, [facility] [place] [facility] [address] [id number] [place] [address]- 9693 Apr, [facility] [place] [facility] [address] [id number] [place] [address]- 5833 Apr, [facility] [place] [facility] [address] [id number] [place] [address]- 3444 Mar, [facility] [place] [facility] [address] [id number] [place] [address]- 9620 Mar, [facility] [place] [facility] [address] [id number] [place] [address]- 1142 Mar, [facility] [place] [facility] [address] [id number] [place] [address]- 8477 Mar, [facility] [place] [facility] [address] [id number] [place] [address]- 6873 Mar, [facility] [place] [facility] [address] [id number] [place] [address]- 9029 Mar, [facility] [place] [facility] [address] [id number] [place] [address]- 8249 Mar, [facility] [place] [facility] [address] [id number] [place] [address]- 4858 Feb, [facility] [place] [facility] [address] [id number] [place] [address]- 9647 Feb, [facility] [place] [facility] [address] [id number] [place] [address]- 6782 Feb, [facility] [place] [facility] [address] [facility] [id number] [place] [address]- 0303 Jan, [facility] [place] [facility] [address] [id number] [place] [address]- 7196 Jan, [facility] [place] [facility] [address] [id number] [place] [address]- 8875 Jan, [facility] [place] [facility] [address] [id number] [place] [address]- 2385 Jan, [facility] [place] [facility] [address] [id number] [place] [address]- 6098 Jan, [facility] [place] [facility] [address] [id number] [place] [address]- 3422 Jan, [facility] [place] [facility] [address] [id number] [place] [address]- 5821 Jan, [facility] [place] [facility] [address] [id number] [place] [address]- 7973 Jan, [facility] [place] [facility] [address] [id number] [place] [address]- 4060 Jan, [facility] [place] [facility] [address] [id number] [place] [address]- 2017 Jan, [facility] [place] [facility] [address] [id number] [place] [address]- 6374 Nov, [facility] [place] [facility] [address] [id number] [place] [address]- 4486 Nov, [facility] [place] [facility] [address] [id number] [place] [address]- 4242 Nov, [facility] [place] [facility] [address] [id number] [place] [address]- 7705 Oct, [facility] [place] [facility] [address] [id number] [place] [address]- 2664 Oct, [facility] [place] [facility] [address] [id number] [place] [address]- 2063 Oct, [facility] [place] [facility] [address] [id number] [place] [address]- 0266 Oct, [facility] [place] [facility] [address] [id number] [place] [address]- 7608 Oct, [facility] [place] [facility] [address] [id number] [place] [address]- 1959 Oct, [facility] [place] [facility] [address] [id number] [place] [address]- 5301 Oct, [facility] [place] [facility] [address] [id number] [place] [address]- 2567 Oct, [facility] [place] [facility] [address] [id number] [place] [address]- 3851 Oct, [facility] [place] [facility] [address] [id number] [place] [address]- 7071 Sep, [facility] [place] [facility] [address] [id number] [place] [address]- 2352 Sep, [facility] [place] [facility] [address] [id number] [place] [address]- 5558 Sep, [facility] [place] [facility] [address] [id number] [place] [address]- 9862 Sep, [facility] [place] [facility] [address] [id number] [place] [address]- 0228 Sep, [facility] [place] [facility] [address] [id number] [place] [address]- 7386 Sep, [facility] [place] [facility] [address] [id number] [place] [address]- 8908 Sep, [facility] [place] [facility] [address] [id number] [place] [address]- 6045 Sep, [facility] [place] [facility] [address] [id number] [place] [address]- 2423 Sep, [facility] [place] [facility] [address] [id number] [place] [address]- 7084 August, [facility] [place] [facility] [address] [id number] [place] [address]- 2477 August, [facility] [place] [facility] [address] [id number], [place] [address]- 8222 August, [facility] [place] [facility] [address] [id number] [place] [address]- 6151 August, [facility] [place] [facility] [address] [id number] [place] [address]- 4359 August, [facility] [place] [facility] [address] [id number] [place] [address]- 9852 August, [facility] [place] [facility] [address] [id number] [place] [address]- 3221 Jul, [facility] [address] [id number] [place] [address]- 5006 Jul, [facility] [place] [facility] [address] [id number] [place] [address]- 8020 Jul, [facility] [place] [facility] [address] [id number] [place] [address]- 2083 Jul, [facility] [place] [facility] [address] [id number] [place] [address]- 4069 Jul, [facility] [place] [facility] [address] [id number] [place] [address]- 1614 Jul, [facility] [place] [facility] [address] [id number] [place] [address]- 5399 Jun, [facility] [place] [facility] [address] [id number] [place] [address]- 7345 Jun, [facility] [place] [facility] [address] [id number] [place] [address]- 0008 May, [facility] [place] [facility] [address] [id number] [place] [address]- 6498 May, [facility] [address] [id number] [place] [address]- 7352 May, [facility] [place] [facility] [address] [id number] [place] [address]- 6802 May, [facility] [place] [facility] [address] [id number] [place] [address]- 4918 Apr, [facility] [place] [facility] [address] [id number] [place] 9915 Apr, [facility] [place] [facility] [address] [id number] [place] [address]- 6686 Mar, [facility] [place] [facility] [address] [id number] [place] 3041 Mar, [facility] [place] [facility] [address] [id number] [place] [address]- 7491 Mar, [facility] [place] [facility] [address] [id number] [place] [address]- 6416 Mar, [facility] [place] [facility] [address] [id number] [place] [address] Mar, [facility] [place] [facility] [address] [id number] [place] [address] Mar, [facility] [place] [facility] [address] [id number] [place] [address] Feb, [facility] [place] [facility] [address] [id number] [place] [address] Feb, [facility] [place] [facility] [address] [id number] [place] [address] Feb, [facility] [place] [facility] [address] [id number], [place] [address] Feb, [facility] [place] [facility] [address] [id number] [place] [address] Feb, [facility] [place] [facility] [address] [id number], [place] [address] Feb, [facility] [place] [facility] [address] [id number], [place] [address] Jan, [facility] [place] [facility] [address] [id number], [place] [address] 24 Jan, 2013 [facility] [place] [facility] [address] [id number] [place] [address] Jan, [facility] [place] [facility] [address] [id number], [place] [address] Jan, [facility] [place] [facility] [address] [id number], [place] [address] Jan, [facility] [place] [facility] [address] [id number] [place] [address] Jan, [facility] [place] [facility] [address] [id number] [place] [address] Dec, [facility] [place] [facility] [address] [id number] [place] [address] Dec, [facility] [place] [facility] [address] [id number] [place] [address] Nov, [facility] [place] [facility] [address] [id number] [place] [address] Nov, [facility] [place] [facility] [address] [id number] [place] [address] Oct, [facility] [place] [facility] [address] [id number] [place] [address] Oct, [facility] [place] [facility] [address] [id number] [place] [address] Oct, [facility] [place] [facility] [address] [id number] [place] [address] Oct, [facility] [place] [facility] [address] [id number] [place] [address] Oct, [facility] [place] [facility] [address] [id number] [place] [address] Oct, [facility] [place] [facility] [address] [id number] [place] [address] Sep, [facility] [place] [facility] [address] [id number] [place] [address] Sep, [facility] [place] [facility] [address] [id number] [place] [address] Sep, [facility] [place] [facility] [address] [id number] [place] [address] Sep, [facility] [place] [facility] [address] [id number] [place] [address] August, [facility] [place] [facility] [address] [id number] [place] [address] August, [facility] [address] [id number] [place] [address] August, [facility] [address] [id number] [place] [address] August, [facility] [address] [id number] [place] [address] August, [facility] [address] [id number] [place] [address] Jul, [facility] [address] [id number] [place] [address] Jul, [facility] [address] [id number] [place] [address] Jul, [facility] [address] [id number] [place] [address] Jul, [facility] [address] [id number] [place] [address] Jul, [facility] [address] [id number] [place] [address] Jul, [facility] [address] [id number] [place] [address] Jul, [facility] [address] [id number], [place] [address] Jul, [facility] [address] [id number] [place] [address] Jul, [facility] [address] [id number] [place] [address] Jul, [facility] [address] [id number] [place] [id number] Jun, [facility] [address] [id number] [place] [address] Jun, [facility] [address] [id number] [place] [address] Jun, [facility] [place] [facility] [address] [id number] [place] [address] Jun, [facility] [place] [facility] [address] [address] [id number] [place] [address] Jun, [facility] [place] [facility] [address] [id number] [place] [address] May, [facility] [address] [id number] [place] [address] May, [facility] [place] [facility] [address] [id number] [place] [address] 1016 May, [facility] [address] [id number] [place] [address] Apr, [facility] [place] [facility] [address] [id number] [place] [address] Apr, [facility] [place] [facility] [address] [id number] [place] [address] Apr, [facility] [place] [facility] [address] [id number] [place] [address] Apr, [facility] [place] [facility] [address] [id number] [place] [address] Apr, [facility] [place] [facility] [address] [id number] [place] [address] 6[address] Apr, [facility] [place] [facility] [address] [id number] [place] [address] Mar, [facility] [place] [facility] [address] [id number] [place] [address] Mar, [facility] [place] [facility] [address] [id number] [place] [address] 9443 Mar, [facility] [place] [facility] [address] [id number] [place] [address] 1995 Mar, [facility] [place] [facility] [address] [id number] [place] [address] 245[address] Feb, [facility] [place] [facility] [address] [id number] [place] [address] 8[address] Feb, [facility] [place] [facility] [address] [id number] [place] [address] 3535 Feb, [facility] [place] [facility] [address] [id number] [place] [address] 5657 Feb, [facility] [place] [facility] [address] [id number] [place] [address]- 0023 Feb, [facility] [place] [facility] [address] [id number] [place] [address]- 3037 Feb, [facility] [place] [facility] [address] [id number] [place] [address]- 5562 Feb, [facility] [place] [facility] [address] [id number] [place] [address]- 5986 Feb, [facility] [place] [facility] [address] [id number] [place] [address] 1127 Feb, [facility] [place] [facility] [address] [facility] [id number] [place] [address] 63[address] Feb, [facility] [place] [facility] [address] [id number] [place] [address] 9191 Feb, [facility] [place] [facility] [address] [id number], [place] [address] Feb, [facility] [place] [facility] [address] [id number] [place] [address]- 5305 Feb, [facility] [place] [facility] [address] [facility] [id number] [place] [address]- 8082 Feb, [facility] [place] [facility] [address] [id number], [place] [address] Feb, [facility] [place] [facility] [address] [id number] [place] [address] 6697 Feb, [facility] [place] [facility] [address] [id number] [place] [address]- 3670 Jan, [facility] [place] [facility] [address] [id number] [place] [address]- 5027 Jan, [facility] [place] [facility] [address] [id number] [place] [address], [place] [address]- 5817 Jan, [facility] [place] [facility] [address] [id number] [place] [address]- 5178 Jan, [facility] [place] [facility] [address] [id number] [place] [address]- 2973 Jan, [facility] [place] [facility] [address] [id number] [place] [address]- 4334 Jan, [facility] [place] [facility] [address] [id number] [place] [address] 1402 Jan, [facility] [place] [facility] [address] [id number] [place] [address] 3739 Jan, [facility] [place] [facility] [address] [id number] [place] [address] 1542 Jan, [facility] [place] [facility] [address] [id number] [place] [address]- 4231 Jan, [facility] [place] [facility] [address] [id number], [place] [address] Jan, [facility] [place] [facility] [address] [id number] [place] [address] 9959 Jan, [facility] [place] [facility] [address] [id number] [place] [address] 9133 Dec, [facility] [place] [facility] [address] [id number] [place] [address] 2616 Dec, [facility] [place] [facility] [address] [id number], [place] [address] 24 Sep, 2011 [facility] [place] [facility] [address] [id number] [place] [address] 2546 23 Sep, 2011 [facility] [place] [facility] [address] [id number] [place] [address] 2546 22 Sep, 2011 [facility] [place] [facility] [address] [id number] [place] [address] 2546 21 Sep, 2011 [facility] [place] [facility] [address] [id number] [place] [address] 2546 20 Sep, 2011 [facility] [place] [facility] [address] [id number] [place] [address] 2546 20 Sep, 2011 [facility] [place] [facility] [address] [id number] [place] [address]- 1426 07 Dec, 2011 [facility] [place] [facility] [address] [id number] [place] [address]- 9883 06 Sep, 2011 [facility] [place] [facility] [address] [id number] [place] [address]- 6004 06 Dec, 2011 [facility] [place] [facility] [address] [id number] [place] [address]- 7277 05 Dec, 2011 [facility] [place] [facility] [address] [id number] [place] [address]- 8350 23 Nov, 2011 [facility] [place] [facility] [address] [id number] [place] [address]- 4623 17 Nov, 2011 [facility] [place] [facility] [address] [id number] [place] [address]- 0756 13 Nov, 2011 [facility] [place] [facility] [address] [id number] [place] [address]- 2541 10 Nov, 2011 [facility] [place] [facility] [address] [id number] [place] [address]- 2754 08 Nov, 2011 [facility] [place] [facility] [address] [id number] [place] [address]- 7280 07 Nov, 2011 [facility] [place] [facility] [address] [id number] [place] [address]- [address]46 Nov, [facility] [address] [id number] [place] [address] 0776 Nov, [facility] [place] [facility] [address] [id number] [place] [address]- 2546 Oct, [facility] [address] [id number] [place] [address]- 2846 Oct, [facility] [address] [id number] [place] [address] 3046 Oct, [facility] [address] [id number] [place] [address]- 4187 Oct, [facility] [address] [id number] [place] [address]- 1046 Oct, [facility] [address] [id number] [place] [address]- 8806 Oct, [facility] [address] [id number] [place] [address]- 7457 Oct, [facility] [address] [id number] [place] [address]- 2916 Sep, [facility] [address] [id number] [place] [address]- 9016 Sep, [facility] [address] [id number] [place] [address]- 2546 August, [facility] [address] [id number] [place] [address]- 2546 August, [facility] [place] [facility] [address] [id number] [place] [address]- 8046 August, [facility] [place] [facility] [address] [id number] [place] [address]- 2546 August, [facility] [address] [id number] [place] [address] Jul, [facility] [place] [facility] [address] [id number] [place] [address]- 1801 Jul, [facility] [place] [facility] [address] [id number] [place] [address]- 5031 Jul, [facility] [place] [facility] [address] [id number] [place] [address]- 1972 Jul, [facility] [place] [facility] [address] [id number] [place] [address]- 9494 Jul, [facility] [place] [facility] [address] [id number] [place] [address]- 1598 Jul, [facility] [place] [facility] [address] [id number] [place] [address]- 2441 Jul, [facility] [place] [facility] [address] [id number] [place] [address]- 5311 Jul, [facility] [place] [facility] [address] [id number] [place] [address]- 4359 Jul, [facility] [place] [facility] [address] [id number] [place] [address]- 6749 Jun, [facility] [place] [facility] [address] [id number] [place] [address]- 4708 Jun, [facility] [place] [facility] [address] [id number], [place] [address]- 5271 15 Jun, 2011 [facility] [place] [facility] [address] [id number], [place] [address]- 2654 14 Jun, 2011 [facility] [place] [facility] [address] [id number] [place] [address]- 2758 12 Jun, 2011 [facility] [place] [facility] [address] [id number] [place] [address]- 5724 Jun, [facility] [place] [facility] [address] [id number], [place] [address]- 1799 Jun, [facility] [place] [facility] [address] [id number], [place] [address]- 6047 May, [facility] [address] [id number] [place] [address]- 9636 May, [facility] [address] [id number] [place] [address] 2546 May, [facility] [address] [id number] [place] [address] 2546 May, [facility] [address] [id number] [place] [address] 2546 May, [facility] [address] [id number] [place] [address]- 9922 Apr, [facility] [address] [id number] [place] [address]- 1346 Apr, [facility] [address] [id number] [place] [address]- 2830 Apr, [facility] [address] [id number] [place] [address]- 3338 Apr, [facility] [address] [id number] [place] [address]- 1220 Apr, [facility] [address] [id number] [place] [address]- 5418 Mar, [facility] [address] [id number] [place] [address] 2546 Mar, [facility] [address] [id number] [place] [address] 2546 Mar, [facility] [place] [facility] [address] [id number] [place] [address] 2546 Mar, [facility] [place] [facility] [address] [id number] [place] [address] 2546 Mar, [facility] [address] [id number] [place] [address] 2547 Mar, [facility] [place] [facility] [address] [id number] [place] [address]- 4832 Mar, [facility] [place] [facility] [address] [id number] [place] [address]- 9305 Feb, [facility] [place] [facility] [address] [id number] [place] [address]- 5988 Feb, [facility] [place] [facility] [address] [id number] [place] [address]- 8903 Feb, [facility] [place] [facility] [address] [id number] [place] [address]- 7196 Feb, [facility] [place] [facility] [address] [id number] [place] [address]- 7834 Jan, [facility] [place] [facility] [address] [id number] [place] [address]- 4678 Jan, [facility] [place] [facility] [address] [id number] [place] [address]- 1583 Jan, [facility] [place] [facility] [address] [id number] [place] [address]- 6077 Jan, [facility] [place] [facility] [address] [id number] [place] [address]- 1145 Nov, [facility] [place] [facility] [address] [id number] [place] [address]- 8275 Mar, [facility] [place] [facility] [address] [id number] [place] [address]- 0022 Mar, [facility] [place] [facility] [address] [id number] [place] [address]- 8980 Mar, [facility] [place] [facility] [address] [id number] [place] [address]- 4478 Mar, [facility] [place] [facility] [address] [id number] [place] [address] 2541 Mar, [facility] [place] [facility] [address] [id number], [place] [address]- 2546 Mar, [facility] [address] [facility] [id number], [place] [address] 2546 Feb, [facility] [address] [facility] [id number], [place] [address]- 2546 Feb, [facility] [address] [facility] [id number], [place] [address] 2546 Jan, [facility] [address] [facility] [id number], [place] [address]- 2546 Jan, [facility] [address] [facility] [id number], [place] [address] 2546 Jan, IMMUNIZATIONS Vaccine Route Administration Date Status ROCEPHIN 1 GM (IM) IM Intramuscular Feb 21, 2018 Administered SOCIAL HISTORY Never Assessed REASON FOR VISIT UTI symptoms x1 week Carolee Kenzie MURRAY, Has had incontinence of her bowels. PLAN OF CARE Activity Details Follow Up if not improving with PCP or reg follow up Reason:UTI Pending Test UA W/CULTURE IF INDICATED (IN HOUSE) VITAL SIGNS Height 61.5 in 2018-02-21 Weight 199.1 lbs 2018-02-21 Temperature 97.2 degrees Fahrenheit 2018-02-21 Heart Rate 78 bpm 2018-02-21 Respiratory Rate 18 2018-02-21 BMI 37.01 kg/m2 2018-02-21 Blood pressure systolic 132 mmHg 2018-02-21 Blood pressure diastolic 72 mmHg 2018-02-21 MEDICATIONS Medication Instructions Dosage Frequency Start Date End Date Duration Status Nystatin 595753 UNIT/ML Mouth/Throat Four times a day 4 ml 6h Active Vitamin C 1000 MG Orally Once a day 1 tablet 24h Active Cetirizine HCl 10 MG Orally Once a day 1 tablet 24h Active Vitamin D-3 1000 UNIT Orally Once a day 1 tablet 24h Active Fiber Complete - Active Pantoprazole Sodium 40 MG TAKE ONE TABLET BY MOUTH ONCE DAILY 30 Active Synthroid 150 MCG Orally Once a day TAKE 1 TABLET BY MOUTH ONCE DAILY 24h 30 Active Fluticasone Propionate 50 MCG/ACT USE ONE SPRAY IN EACH NOSTRIL TWICE DAILY Active Cymbalta 60 MG TAKE ONE CAPSULE BY MOUTH ONCE DAILY 30 Active Ipratropium [place] 0.03 % Nasally Three times a day prn drainage 1-2 sprays in each nostril as needed Active Singulair 10 MG Orally Once a day 1 tablet 24h 30 day(s) Active Nystatin 808723 UNIT/GM Externally Twice a day 1 application to thighs as needed 12h 19 Sep, 2016 5 Active Vitamin D (Ergocalciferol) 54615 UNIT Orally once weekly 1 capsule Dec 8 weeks Active Metoprolol Succinate 50 MG Orally Once a day 1 capsule 24h Active ProAir HFA 108 (90 Base) MCG/ACT 1 puff Active Requip 5 MG Orally Once a day 1 tablet 24h 30 Active Gemfibrozil 600 MG TAKE ONE TABLET BY MOUTH TWICE DAILY 30 Active Topamax 100 MG Orally Twice a day 1 tablet 12h Active Imitrex 100 MG 1/2 tablets Active Aspirin 325 MG Orally Once a day 1 tablet 24h Active Ferrous Sulfate 325 (65 Fe) MG Orally 3 times a day 1 tablet 8h Active Fish Oil 1200 MG Orally Once a day at hs 1 capsule Active Lyrica 150 MG Orally 2 times a day 1 capsule 12h 28 days Active RESULTS No Results PROCEDURES Procedure Date Ordered Result Body Site [facility] VISIT ESTABLISHED PATIENT Feb 21, 2018 ROCEPHIN 1 GM (IM) Feb 21, 2018 URINALYSIS, AUTO, W/O SCOPE Feb 21, 2018 [facility] Feb 21, 2018 THER/PROPH/DIAG INJ, SC/IM Feb 21, 2018 INSTRUCTIONS MEDICATIONS ADMINISTERED No Known Medications MEDICAL [...] 2020 & 2007 Surgical History Bladder surgery [facility] 03/2016 Surgical History Neurotransmitter placed 10/2017 Surgical History retninal repair 12/31/2017 Hospitalization History Surgeries Only Hospitalization History bacterial meningitis December 2016 Hospitalization History [facility] psych for SI 1988 Hospitalization History [facility]-Altered mental status 05/2017
--- OUTSIDE RECORDS SUMMARY | 2018-05-29 07:28 | XMS REPORT ---
Author Author FIDEL FRANCIS Organization [facility] Address [address] [place] [address] Care Team Providers Care Supervisor Cartography Name Role Phone FIDEL FRANCIS Unavailable PROBLEMS Type Condition ICD9-CM Code RQO33-VN Code Onset Dates Condition Status SNOMED Code Problem Generalized anxiety disorder F41.1 Active 07103633 Problem Low back pain M54.5 Active 666642768 Problem Coronary artery disease involving [place] coronary artery of [place] heart, angina presence unspecified I25.10 Active 6204350308836 Problem Dysthymic 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 Active 91362233 Problem Restless leg G25.81 Active 12389059 Problem Hypothyroid E03.9 Active 00284835 Problem Insomnia G47.00 Active 775679449 Problem Asthma J45.909 Active 300403141 Problem Palpitations R00.2 Active 46306452 Problem Anemia in chronic kidney disease D63.1 Active 812993256977244 Problem Depressed F32.9 Active 31022233 Problem Bipolar disorder, current episode manic without psychotic features F31.10 Active 266893319 Problem Chronic kidney disease, stage 4 (severe) N18.4 Active 175203370 Problem Degenerative tear of medial meniscus of left knee M23.204 Active 334137433 Problem Mood disorder F39 Active 02890364 Problem Primary osteoarthritis of left knee M17.12 Active 927329312 Problem Perimenopausal vasomotor symptoms N95.1 Active 261204053 Problem Chronic pain syndrome G89.4 Active 159257576 Problem Asthma with acute exacerbation in adult J45.901 Active 556225820 Problem History of colon polyps Z86.010 Active 712056770 Problem Functional 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 Active 63082783 Problem Body mass index (BMI) of 40.0-44.9 in adult Z68.41 Active 384321160 Problem Stage 3 chronic kidney disease N18.3 Active 092858473 Problem Restless leg syndrome G25.81 Active 72029880 Problem Seasonal allergic rhinitis due to pollen J30.1 Active 67051909 Problem Long-term use of high-risk medication Z79.899 Active 914383366 Problem Hypokalemia E87.6 Active 35678173 Problem Abnormal chest CT R93.8 Active 526191602 Problem Fibromyalgia M79.7 Active 926637111 Problem History of anemia Z86.2 Active 686862113 Problem Other seasonal allergic rhinitis J30.2 Active 985362175 Problem Essential (primary) hypertension I10 Active 15890490 Problem Chronic kidney disease, unspecified N18.9 Active 792668093 Problem Mixed stress and urge urinary incontinence N39.46 Active 364011574 Problem Vitamin D deficiency E55.9 Active 68308466 ALLERGIES No Information ENCOUNTERS Encounter Location Date Diagnosis [facility] [address] [address] Mar, [facility] [address] [address]- [address] Feb, [facility] [address] [address]- [address] Feb, [facility] [address] 67543- 8895 Feb, [facility] [address] [address]- [address] Feb, [facility] [address] [address]- [address] Feb, Fibromyalgia M79.7 [facility] [address] [address]- 8[address] 08 Feb, 2018 Complicated UTI (urinary tract infection) N39.0 [facility] [address] 35[address]- 4[address] 07 Feb, 2018 [facility] [address] [address]- [address] 31 Jan, 2018 Generalized anxiety disorder F41.1 and Major depressive disorder, recurrent episode with anxious distress F33.9 [facility] [address] [address] Jan, Acute conjunctivitis of left eye, unspecified acute conjunctivitis type H10.32 [facility] [facility] [address] [address]- [address] Jan, [place] [address] 42057- 8639 Jan, Acute non-recurrent maxillary sinusitis J01.00 ; Dysuria R30.0 ; Perimenopausal vasomotor symptoms N95.1 and Fibromyalgia M79.7 [facility] [id number] [place] [address] 16466- 8914 Dec, Vitamin D deficiency E55.9 [facility] [id number] [place] [address] 10350- 0951 Dec, Vitamin D deficiency E55.9 [facility] [address] 20045- 3126 Dec, Vitamin D deficiency E55.9 [facility] [id number] [place] [address] 83868- 0547 Dec, [facility] [address] 22601- 3220 Dec, Fibromyalgia M79.7 [facility] [id number] [place] [address] 89448- 5037 Nov, [facility] [id number] [place] [address] 45575- 6844 Nov, [facility] [id number] [place] [address] 97975- 5071 Nov, [facility] [address] 36600- 8935 Nov, Fibromyalgia M79.7 ; Vision changes H53.9 ; Chest wall pain R07.89 and Chronic pain syndrome G89.4 [facility] [id number] [place] [address] 82097- 3218 Nov, [facility] [address] [address] 8137 Nov, Rash of hands R21 [facility] [id number] [place] [address] 22802- 0511 Nov, Generalized anxiety disorder F41.1 and Major depressive disorder, recurrent episode with anxious distress F33.9 [facility] [place] [id number] [place] [address] 70767- 8185 Nov, Fibromyalgia M79.7 [facility] [id number] [place] [address] 94388- 6291 Nov, Complicated UTI (urinary tract infection) N39.0 [place] [id number] [place] [address] 82415- 4814 Oct, [facility] [id number] [place] [address] 50095- 1503 Oct, Generalized anxiety disorder F41.1 and Major depressive disorder, recurrent episode with anxious distress F33.9 [facility] [place] [id number] [place] [address] 50779- 1290 Oct, [facility] [id number] [place] [address] 11988- 3497 Oct, Fibromyalgia M79.7 [facility] [place] [id number] [place] [address] 09872- 5335 Sep, Restless leg syndrome G25.81 and Restless leg G25.81 [facility] [id number] [place] [address] 86798- 0882 Sep, [facility] [id number] [place] [address] 87498- 6656 Sep, Seasonal allergic rhinitis due to pollen J30.1 ; Screening for breast cancer Z12.31 ; Chest pain at rest R07.9 ; Restless leg syndrome G25.81 ; Essential (primary) hypertension I10 and Depressed F32.9 [facility] [address], [place] [address] 3[address] August, Fibromyalgia M79.7 [facility] [id number] [place] [address] 95586- 1465 August, [facility] [id number] [place] [address] 27734- 1174 August, [facility] [id number] [place] [address] 10532- 35[address] August, Ab[address] chest [address] R93.8 [facility] [id number] [place] [address] 86755- 1222 August, Generalized anxiety disorder F41.1 and Major depressive disorder, recurrent episode with anxious distress F33.9 [facility] [id number] [place] [address] 18093- [address] August, Ab[address] chest [address] R93.8 [facility] [id number] [place] [address] 76854- 7565 Jul, [facility] [id number] [place] [address] 30938- 7537 Jul, Chronic kidney disease, stage 4 (severe) N18.4 [facility] [id number] [place] [address] 59292- 6384 Jul, [facility] [id number] [place] [address] 30764- 9109 Jul, Restless leg G25.81 ; Mixed stress and urge urinary incontinence N39.46 and Fibromyalgia M79.7 [facility] [address], [place] [address]- 8741 Jul, Chronic kidney disease, stage 4 (severe) N18.4 [facility] [address] [address]- 1729 Jun, Orthostatic hypotension I95.1 ; Chronic kidney disease, stage 4 (severe) N18.4 ; Chest wall discomfort R07.89 and Body mass index (BMI) of 40.0-44.9 in adult Z68.41 [facility] [id number] [place] [address] 49888- 6804 Jun, [facility] [id number] [place] [address] 89839- 9803 Jun, Orthostatic hypotension I95.1 [facility] [id number] [place] [address] 77937- 4467 Jun, [facility] [id number] [place] [address] 01411 -3502 Jun, Orthostatic hypotension I95.1 ; Dysuria R30.0 and Acute cystitis without hematuria N30.00 [facility] [id number] [place] [address] 54292- 2629 Jun, [facility] [id number] [place] [address] 48905- 3521 Jun, Chronic kidney disease, stage 4 (severe) N18.4 [facility] [id number] [place] [address] 11251- 8181 Jun, Fibromyalgia M79.7 [facility] [id number] [place] [address] 29970- 6253 Jun, [facility] [id number] [place] [address] 21125- 7217 Jun, [facility] [id number] [place] [address] 81468- [address] May, [address] R93.8 and Stage 3 chronic kidney disease N18.3 [facility] [id number] [place] [address] 76501- 6592 May, Chronic kidney disease, stage 4 (severe) N18.4 [facility] [id number] [place] [address] 30059- 1579 May, Chronic kidney disease, stage 4 (severe) N18.4 [facility] [id number] [place] [address] 38580- [address] May, [address] R93.8 [facility] [id number] [place] [address] 86335- 8375 May, [facility] [id number] [place] [address] 86540- 7877 May, [facility] [id number] [place] [address] 53973- 4828 May, Generalized anxiety disorder F41.1 and Major depressive disorder, recurrent episode with anxious distress F33.9 [facility] [id number] [place] [address] 20617- 4978 May, Mood disorder F39 [facility] [id number] [place] [address] 18933- 1253 Apr, [facility] [id number] [place] [address] 83524- 8002 Apr, Infected skin lesion L08.9 and Muscle strain of right shoulder region, initial encounter S46.911A [facility] [id number] [place] [address] 04873- 8220 Apr, Generalized anxiety disorder F41.1 and Major depressive disorder, recurrent episode with anxious distress F33.9 [facility] [id number] [place] [address] 96114- 4035 Apr, [facility] [address] [place] [address] 27421- 7383 Apr, Recent urinary tract infection Z87.440 and Hypothyroid E03.9 [place] [id number] [place] [address] 66810- 6225 Apr, Generalized anxiety disorder F41.1 and Major depressive disorder, recurrent episode with anxious distress F33.9 [place] [id number] [place] [address] 06645- 9832 Apr, Recent urinary tract infection Z87.440 [facility] [address] [address]- 5859 Mar, [facility] [id number] [place] [address] 73391 -3014 Mar, Dysuria R30.0 ; Acute cystitis without hematuria N30.00 and BMI 40.0-44.9, adult Z68.41 [place] [id number] [place] [address] 92988- 4798 Mar, [place] [id number] [place] [address] 20608- 3225 Mar, [facility] [id number] [place] [address] 91601- 7428 Mar, Generalized anxiety disorder F41.1 and Major depressive disorder, recurrent episode with anxious distress F33.9 [facility] [id number] [place] [address] 81828- 6822 Feb, Conjunctivitis, bacterial H10.9 [facility] [id number] [place] [address] 70061- 1854 Feb, [facility] [place] [id number] [place] [address] 32501 -0273 Feb, Conjunctivitis, bacterial H10.9 [place] [id number] [place] [address] 41894- 8883 Feb, [facility] [id number] [place] [address] 52414 -6593 10 Feb, 2017 Dysuria R30.0 ; Acute cystitis N30.00 and BMI 40.0-44.9, adult Z68.41 [facility] [id number] [place] [address] 43985- 9265 08 Feb, 2017 [facility] [id number] [place] [address] 14877- 0422 Feb, Generalized anxiety disorder F41.1 and Major depressive disorder, recurrent episode with anxious distress F33.9 [place] [id number] [place] [address] 11491- 5720 Feb, Mood disorder F39 and BMI 40.0-44.9, adult Z68.41 [place] [id number] [place] [address] 83439- 1397 Jan, [place] [address] 59020- 8987 Jan, [place] [address] 44346- 3648 Jan, Hypothyroid E03.9 [facility] [address] 36160- 4530 Jan, [place] [address] 65843- 7210 Jan, Chronic kidney disease, unspecified N18.9 ; Hypokalemia E87.6 ; Essential (primary) hypertension I10 ; Fibromyalgia M79.7 ; Coronary artery disease involving [place] coronary artery of [place] heart, angina presence unspecified I25.10 ; Hypothyroid E03.9 and Encounter for immunization Z23 [facility] [id number] [place] [address] 67307- 9687 Jan, Hypothyroid E03.9 [facility] [id number] [place] [address] 54259- 5229 Jan, [facility] [id number] [place] [address] 05810- 6692 Dec, Vitamin D deficiency E55.9 [facility] [id number] [place] [address] 32600- 4379 Dec, Primary osteoarthritis of left knee M17.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 [place] [id number] [place] [address] 56945- 4773 Dec, Fibromyalgia M79.7 [place] [address], [place] [address]- 9333 18 Sep, 2017 Mood disorder F39 [facility] [id number] [place] [address] 40730- 8120 13 Dec, 2016 [facility] [id number] [place] [address] 67246- 2627 2016 Generalized anxiety disorder F41.1 and Major depressive disorder, recurrent episode with anxious distress F33.9 [facility] [id number] [place] [address] 75565- 1907 11 Sep, 2016 [facility] [id number] [place] [address] 56722- 2122 08 Dec, 2016 Streptococcal meningitis G00.2 [facility] [address] [place] [address] 19542- 9935 07 Dec, 2016 Streptococcal meningitis G00.2 [facility] [id number] [place] [address] 84059- 1060 07 Dec, 2016 [facility] [address] [place] [address] 77670- 5589 06 Dec, 2016 Streptococcal meningitis G00.2 [facility] [id number] [place] [address] 64040- 3360 06 Dec, 2016 [facility] [id number] [place] [address] 87740- 7199 06 Dec, 2016 Major depressive disorder, recurrent episode with anxious distress F33.9 [facility] [address], [place] [address]- 5841 29 Nov, 2016 Fever, unspecified fever cause R50.9 [facility] [id number] [place] [address] 41299- 2772 24 Nov, 2016 [facility] [address] [place] [address] 39761- 8184 16 Nov, 2016 Hypothyroid E03.9 [facility] [id number] [place] [address] 04072- 4693 Nov, Generalized anxiety disorder F41.1 and Major depressive disorder, recurrent episode with anxious distress F33.9 [facility] [id number] [place] [address] 64175- 0420 Nov, [facility] [id number] [place] [address] [id number] Oct, Dental examination Z01.20 [facility] [id number] [place] [address] 32990- 4240 Oct, Generalized anxiety disorder F41.1 and Major depressive disorder, recurrent episode with anxious distress F33.9 [facility] [id number] [place] [address] 92939- 8668 Oct, Chronic kidney disease, stage 4 (severe) N18.4 [place] [id number] [place] [address] 56187- 7372 Oct, [facility] [id number] [place] [address] 40098- 0319 Oct, Fibromyalgia M79.7 [facility] [id number] [place] [address] 34349- 8961 Oct, [facility] [id number] [place] [address] 70809- 8101 Oct, Generalized anxiety disorder F41.1 ; Major depressive disorder, recurrent episode with anxious distress F33.9 and Bipolar disorder, current episode manic without psychotic features F31.10 [facility] [id number] [place] [address] 21709- 9845 Sep, [facility] [id number] [place] [address] 83061- 5245 Sep, [facility] [id number] [place] [address] 66134- 9841 15 Sep, 2016 Vitamin D deficiency E55.9 [facility] [id number] [place] [address] 76232- 1844 Sep, Vitamin D deficiency E55.9 [place] [address], [place] [address]- 7884 Sep, [place] [id number] [place] [address] 31851- 6317 Sep, Chronic kidney disease, stage 4 (severe) N18.4 ; Hypothyroid E03.9 ; Restless leg G25.81 ; Fibromyalgia M79.7 ; Essential ( primary) hypertension I10 ; Vitamin D deficiency E55.9 ; Dyspepsia R10.13 ; Anemia in chronic kidney disease D63.1 ; Chronic kidney disease, unspecified N18.9 ; Coronary artery disease involving [place] coronary artery of [place] heart , angina presence unspecified I25.10 ; Screening breast examination Z12.39 and Low back pain M54.5 [place] [id number] [place] [address] 14002- 1123 August, Generalized anxiety disorder F41.1 and Major depressive disorder, recurrent episode with anxious distress F33.9 [place] [id number] [place] [address] 88500- 1998 August, Generalized anxiety disorder F41.1 and Major depressive disorder, recurrent episode with anxious distress F33.9 [place] [address] [place] [address] 20187- 3111 August, Fibromyalgia M79.7 [place] [id number] [place] [address] 45622- 0824 Jul, Generalized anxiety disorder F41.1 and Major depressive disorder, recurrent episode with anxious distress F33.9 [place] [address], [place] [address]- 8344 Jul, Fibromyalgia M79.7 [place] [id number] [place] [address] 52290- 5774 Jul, Generalized anxiety disorder F41.1 [place] [address] [place] [address] 40981- 7605 May, [place] [id number] [place] [address] 61548- 1938 16 May, 2016 Hypothyroid E03.9 [place] [id number] [place] [address] 28752- 8777 08 May, 2016 Chronic kidney disease, stage 4 (severe) N18.4 ; Hypothyroid E03.9 ; Restless leg G25.81 ; Fibromyalgia M79.7 ; Essential ( primary) hypertension I10 ; Vitamin D deficiency E55.9 ; Dyspepsia R10.13 ; Acute non-recurrent maxillary sinusitis J01.00 ; Anemia in chronic kidney disease D63.1 ; Chronic kidney disease, unspecified N18.9 and Coronary artery disease involving [place] coronary artery of [place] heart, angina presence unspecified I25.10 [place] [id number] [place] [address] 67016- 5540 May, Vitamin D deficiency, unspecified E55.9 [place] [id number] [place] [address] 67662- 3084 May, Generalized anxiety disorder F41.1 and Major depressive disorder, recurrent episode with anxious distress F33.9 [place] [id number] [place] [address] 99474- 3811 Apr, Pain in right knee M25.561 and Pain in left knee M25.562 [place] [id number] [place] [address] 32604- 1373 Apr, [place] [id number] [place] [address] 10773- 9921 Apr, [place] [id number] [place] [address] 78429- 9817 Apr, [place] [id number] [place] [address] 45558- 6638 Mar, Generalized anxiety disorder F41.1 and Major depressive disorder, recurrent episode with anxious distress F33.9 [place] [id number] [place] [address] 97838- 3812 Mar, Generalized anxiety disorder F41.1 and Major depressive disorder, recurrent episode with anxious distress F33.9 [place] [address] 49772- 3497 Mar, [facility] [id number] [place] [address] 94955- 8858 Mar, [place] [address] 59436- 7509 Mar, [place] [address] 86054- 6237 Mar, Asthma J45.909 and Fibromyalgia M79.7 [place] [address] 83532- 9965 Mar, Chronic kidney disease, stage 4 (severe) N18.4 ; Vitamin D deficiency E55.9 and Essential (primary) hypertension I10 [place] [id number] [place] [address] 55036- 5962 Feb, [place] [id number] [place] [address] 81052- 4141 Feb, Dysuria R30.0 ; Mixed stress and urge urinary incontinence N39.46 ; Fibromyalgia M79.7 and Chronic kidney disease, stage IV (severe) N18.4 [place] [id number] [place] [address] 13272- 4673 Feb, Chronic kidney disease, stage 4 (severe) N18.4 [place] [id number] [place] [address] 25874- 2035 Feb, Chronic kidney disease, stage 4 (severe) N18.4 [place] [id number] [place] [address] 70682- 1971 Feb, [place] [id number] [place] [address] [phone]- [phone] Feb, Vitamin D deficiency, unspecified E55.9 [place] [id number] [place] [address] [phone]- [phone] Jan, [facility] [id number] [place] [address] [phone] Jan, [facility] [id number] [place] [address] [id number]- [id number] Dec, [place] [address] [address]21- [phone] Dec, Chronic kidney disease, stage 4 (severe) N18.4 [place] [id number] [place] [address] [phone]- [phone] Dec, Dysthymic 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 and Generalized anxiety disorder F41.1 [place] [id number] [place] [address] 60359- [id number] Dec, [place] [id number] [place] [address] [phone]- 7414 Dec, [place] [id number] [place] [address] [phone]- [phone] Dec, Dysthymic 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 and Generalized anxiety disorder F41.1 [facility] [id number] [place] [address] 61626- 1935 Dec, Dysuria R30.0 ; Chronic kidney disease, stage 4 (severe) N18.4 ; Hypertension I10 ; Dyspepsia R10.13 ; Yeast dermatitis B37.2 ; Palpitations R00.2 ; Hypothyroid E03.9 ; Functional 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 and Other seasonal allergic rhinitis J30.2 [facility] [id number] [place] [address] 03839 -8709 Dec, [facility] [id number] [place] [address] 68708 -8522 Nov, Dysuria R30.0 and Stress incontinence N39.3 [facility] [id number] [place] [address] 94211- 9646 Nov, [facility] [id number] [place] [address] 87784- 9947 Nov, [facility] [id number] [place] [address] 30113- 5270 Nov, Osteoarthritis of knees, bilateral M17.0 [facility] [id number] [place] [address] 74882- 4069 Nov, Dysthymic 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 and Generalized anxiety disorder F41.1 [facility] [id number] [place] [address] 12848- 3571 Nov, [facility] [id number] [place] [address] 08147- 6298 Nov, [facility] [id number] [place] [address] 64808- 9078 Nov, Urgency of urination R39.15 [facility] [id number] [place] [address] 49180- 5120 Nov, [facility] [id number] [place] [address] 19539- 7303 Nov, Chronic kidney disease, stage 4 (severe) N18.4 [facility] [id number] [place] [address] 52084- 6327 Oct, Hypertension I10 ; Coronary artery disease involving [place] coronary artery of [place] heart, angina presence unspecified I25.10 ; Palpitations R00.2 ; Hypothyroid E03.9 ; Right foot pain M79.671 ; Functional 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 and Other seasonal allergic rhinitis J30.2 [facility] [id number] [place] [address] 45026- 3233 Oct, Dysthymic 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 and Generalized anxiety disorder F41.1 [facility] [id number] [place] [address] 52317- 9765 Sep, [facility] [address] [place] [address]- 2416 Sep, [facility] [id number] [place] [address] 26765- 4591 Sep, [facility] [id number] [place] [address] 79666- 5886 Sep, [facility] [id number] [place] [address] 03507- 3534 Sep, [facility] [id number] [place] [address] 91913- 2860 Sep, Dysthymic 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 and Generalized anxiety disorder F41.1 [facility] [id number] [place] [address] 53767- 6589 16 Sep, 2015 Asthma with acute exacerbation in adult J45.901 ; Dysuria R30.0 ; Chronic kidney disease, stage 4 (severe) N18.4 and History of anemia Z86.2 [facility] [id number] [place] [address] 09851- 9732 2015 Generalized anxiety disorder F41.1 and Dysthymic 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 [facility] [id number] [place] [address] 33281- 3013 August, Screening breast examination Z12.39 and Acute recurrent maxillary sinusitis J01.01 [facility] [id number] [place] [address] 00778- 5032 August, Osteoarthritis of knees, bilateral M17.0 [facility] [id number] [place] [address] 21807- 2363 August, Chronic kidney disease, stage 4 (severe) N18.4 ; Acute non- recurrent maxillary sinusitis J01.00 ; Urinary problem R39.89 ; Bowel habit changes R19.4 ; Functional 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 and History of colon polyps Z86.010 [facility] [address] [address] 2995 Jul, Dysthymic 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 and Generalized anxiety disorder F41.1 [facility] [id number] [place] [address] 64841- 3968 Jul, [facility] [id number] [place] [address] 40205- 7074 Jul, Dysthymic 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 ; Generalized anxiety disorder F41.1 and [facility] use of drug Z79.899 [facility] [id number] [place] [address] 30183- 7627 Jul, [facility] [id number] [place] [address] 59780- 7971 Jun, [facility] [id number] [place] [address] 22951- 4557 Jun, [facility] [id number] [place] [address] 43953- 6779 May, [facility] [id number] [place] [address] 24038- 3834 May, Dysthymic 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 and Generalized anxiety disorder F41.1 [facility] [id number] [place] [address] 75473- 8434 Apr, Kidney disease N28.9 [facility] [id number] [place] [address] 21743- 9075 Apr, Generalized anxiety disorder F41.1 and Dysthymic 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 [facility] [id number] [place] [address] 74186- 2575 Apr, Chronic kidney disease, stage 4 (severe) N18.4 [facility] [id number] [place] [address] 49143- 9602 Apr, Generalized anxiety disorder F41.1 ; Major depression, recurrent F33.9 and Sleep disturbance G47.9 [facility] [id number] [place] [address] 60891- 6309 Mar, Generalized anxiety disorder F41.1 and Dysthymic 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 [facility] [id number] [place] [address] 04155- 4296 Mar, Generalized anxiety disorder F41.1 ; Dysthymic 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 and Insomnia G47.00 [facility] [id number] [place] [address] 92924- 0112 Mar, [facility] [address] 21397- 3900 Mar, [facility] [id number] [place] [address] 57237- 8677 Mar, Osteoarthritis of knees, bilateral M17.0 [facility] [id number] [place] [address] 67192- 1680 Mar, Hypertension I10 ; Hypothyroid E03.9 ; Dysthymic 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 ; Chronic kidney disease, stage 4 (severe) N18.4 and Nausea & vomiting R11.2 [facility] [id number] [place] [address] 32500- 1664 Mar, Generalized anxiety disorder F41.1 ; Dysthymic 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 and Insomnia G47.00 [facility] [id number] [place] [address] 30790- 8428 Mar, Dehydration E86.0 ; Chronic kidney disease, stage 4 (severe ) N18.4 and Nausea & vomiting R11.2 [facility] [id number] [place] [address] 85176 -9447 08 Mar, 2015 Gastroenteritis K52.9 [facility] [id number] [place] [address] 61582- 1601 Mar, [facility] [id number] [place] [address] 73316- 1846 Mar, [facility] [id number] [place] [address] 52751- 1695 Feb, Dysthymic 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 and Generalized anxiety disorder F41.1 [facility] [id number] [place] [address] 42072- 0524 Jan, UTI (urinary tract infection) N39.0 ; Asthma J45.909 ; Coronary artery disease involving [place] coronary artery of [place] heart, angina presence unspecified I25.10 ; Hypertension I10 ; Hypothyroid E03.9 ; Vitamin D deficiency E55.9 ; Insomnia G47.00 ; Palpitations R00.2 ; Depressed F32.9 ; Restless leg G25.81 and Anxiety F41.9 [facility] [id number] [place] [address] 15623- 4496 Jan, Dysthymic 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 and Generalized anxiety disorder F41.1 [facility] [id number] [place] [address] 11630- 0712 Jan, [facility] [id number] [place] [address] 51036- 8239 30 Dec, 2014 [facility] [id number] [place] [address] 24337- 3362 28 Dec, 2014 Alkalosis 276.3 ; Chronic kidney disease, 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.4 ; Hyperpotassemia 276.7 ; Secondary hyperparathyroidism, renal 588.81 ; Proteinuria 791.0 ; Unspecified vitamin D deficiency 268.9 ; Anemia in chronic kidney disease 285.21 ; Other and unspecified hyperlipidemia 272.4 ; Hypertension, essential, benign 401.1 and Chronic kidney disease (CKD), stage III (moderate) 585.3 [facility] [id number] [place] [address] 86953- 6527 Dec, [facility] [id number] [place] [address] 54312- 3719 Dec, Depressive disorder, not elsewhere classified 311 and Generalized anxiety disorder 300.02 [facility] [id number] [place] [address] 52937- 5651 Dec, [facility] [address] 11279- 7867 Dec, [facility] [id number] [place] [address] 59993- 1015 Nov, Depressive disorder, not elsewhere classified 311 and Generalized anxiety disorder 300.02 [facility] [id number] [place] [address] 85708- 9460 Nov, Arthritis of both knees 716.[address] 08995- 3939 Nov, PAF (paroxysmal atrial fibrillation) 427.31 ; CAD (coronary artery disease) 414.00 ; Chest pain 786.50 and Chronic kidney disease (CKD) stage G4/A1, severely decreased glomerular filtration rate (GFR) between 15-29 mL/min/1.73 square meter and albuminuria creatinine ratio less than 30 mg/g 585.4 [facility] [id number] [place] [address] 38844- 7500 Oct, Coronary atherosclerosis of unspecified type of vessel, [place] or graft 414.00 ; Chronic kidney disease, 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.4 ; Hypertension 401.9 and Edema 782.3 [facility] [id number] [place] [address] 80554- 2319 Oct, Depressive disorder, not elsewhere classified 311 and Generalized anxiety disorder 300.02 [facility] [id number] [place] [address] 63093- 7677 Oct, Depressive disorder, not elsewhere classified 311 and Generalized anxiety disorder 300.02 [facility] [id number] [place] [address] 16129- 5776 Oct, [facility] [id number] [place] [address] 00086- 1501 Oct, [facility] [id number] [place] [address] 24228- 9370 Sep, [facility] [id number] [place] [address] 59547- 2411 Sep, Chronic kidney disease, 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.4 [facility] [id number] [place] [address] 99757- 0010 Sep, [facility] [id number] [place] [address] 92201- 4670 Sep, Coronary atherosclerosis of unspecified type of vessel, [place] or graft 414.00 ; Hypertension 401.9 ; Edema 782.3 and Hypothyroidism 244.9 [facility] [address] 94299- 7306 Sep, Coronary atherosclerosis of unspecified type of vessel, [place] or graft 414.00 ; Hypertension 401.9 ; Fibromyalgia 729.1 ; Edema 782.3 ; Hypothyroidism 244.9 and Anemia 285.9 [facility] [address] 59736- 2578 Sep, Anxiety disorder, unspecified 300.00 and Depressive disorder , not elsewhere classified 311 [facility] [address] 37899- 9906 Sep, [facility] [address] 65780- 6572 August, Generalized anxiety disorder 300.02 [facility] [id number] [place] [address] 18434- 2220 August, Closed fracture of lateral malleolus 824.2 [facility] [id number] [place] [address] 12689- 3069 Jul, [facility] [id number] [place] [address] 52374- 5956 Jul, [facility] [id number] [place] [address] 85513- 7857 Jun, [facility] [address] 50444- 3681 Jun, [facility] [id number] [place] [address] 12671- 6202 Jun, [facility] [place] [facility] [address] [id number] [place] [address]- 1167 Jun, [facility] [place] [facility] [address] [id number] [place] [address]- 4716 Jun, [facility] [place] [facility] [address] [id number] [place] [address]- 3109 Jun, [facility] [place] [facility] [address] [id number] [place] [address]- 6589 May, 2014 [facility] [place] [facility] [address] [id number] [place] [address]- 2995 May, 2014 [facility] [place] [facility] [address] [id number] [place] [address]- 8538 May, 2014 [facility] [place] [facility] [address] [id number] [place] [address]- 4118 May, 2014 [facility] [place] [facility] [address] [id number] [place] [address]- 7066 16 May, 2014 [facility] [place] [facility] [address] [id number] [place] [address]- 9039 16 May, 2014 [facility] [place] [facility] [address] [id number] [place] [address]- 9188 May, 2014 [facility] [place] [facility] [address] [id number] [place] [address]- 7736 May, 2014 [facility] [place] [facility] [address] [id number] [place] [address]- 6798 10 May, 2014 [facility] [place] [facility] [address] [id number] [place] [address]- 3985 10 May, 2014 [facility] [place] [facility] [address] [id number] [place] [address]- 1839 Apr, [facility] [place] [facility] [address] [id number] [place] [address]- 3530 Apr, [facility] [place] [facility] [address] [id number] [place] [address]- 5200 Mar, [facility] [place] [facility] [address] [id number] [place] [address]- 0546 Mar, [facility] [place] [facility] [address] [id number] [place] [address]- 5795 Mar, [facility] [place] [facility] [address] [id number] [place] [address]- 8573 Mar, [facility] [place] [facility] [address] [id number] [place] [address]- 3553 Mar, [facility] [place] [facility] [address] [id number] [place] [address]- 6519 Mar, [facility] [place] [facility] [address] [id number] [place] [address]- 1132 Mar, [facility] [place] [facility] [address] [id number] [place] [address]- 6254 Feb, [facility] [place] [facility] [address] [id number] [place] [address]- 2291 Feb, [facility] [place] [facility] [address] [id number] [place] [address]- 6363 Feb, [facility] [place] [facility] [address] [id number] [place] [address]- 2045 Jan, [facility] [place] [facility] [address] [id number] [place] [address]- 5594 Jan, [facility] [place] [facility] [address] [id number], [place] [address]- 9489 Jan, [facility] [place] [facility] [address] [id number] [place] [address]- 7894 Jan, [facility] [place] [facility] [address] [id number] [place] [address]- 9227 Jan, [facility] [place] [facility] [address] [id number], [place] [address]- 6441 Jan, [facility] [place] [facility] [address] [id number] [place] [address]- 5549 Jan, [facility] [place] [facility] [address] [id number] [place] [address]- 2606 Jan, [facility] [place] [facility] [address] [id number] [place] 4756 Jan, [facility] [place] [facility] [address] [id number] [place] [address]- 5360 Jan, [facility] [place] [facility] [address] [id number] [place] [address]- 9907 Nov, [facility] [place] [facility] [address] [id number] [place] [address]- 0914 Nov, [facility] [place] [facility] [address] [id number] [place] [address]- 2247 Nov, [facility] [place] [facility] [address] [id number] [place] [address]- 3798 Oct, [facility] [place] [facility] [address] [id number] [place] [address]- 5467 Oct, [facility] [place] [facility] [address] [id number] [place] [address]- 8408 Oct, [facility] [place] [facility] [address] [id number] [place] [address]- 6781 Oct, [facility] [place] [facility] [address] [id number] [place] [address]- 7444 Oct, [facility] [place] [facility] [address] [id number] [place] [address]- 0422 Oct, [facility] [place] [facility] [address] [id number] [place] [address]- 5617 Oct, [facility] [place] [facility] [address] [id number] [place] [address]- 2925 Oct, [facility] [place] [facility] [address] [id number] [place] [address]- 4996 Oct, [facility] [place] [facility] [address] [id number] [place] [address]- 1968 Sep, [facility] [place] [facility] [address] [id number] [place] [address]- 7984 Sep, [facility] [place] [facility] [address] [id number] [place] [address]- 7289 Sep, [facility] [place] [facility] [address] [id number] [place] [address]- 0905 Sep, [facility] [place] [facility] [address] [id number] [place] [address]- 4104 Sep, [facility] [place] [facility] [address] [id number] [place] [address]- 4202 Sep, [facility] [place] [facility] [address] [id number] [place] [address]- 1570 Sep, [facility] [place] [facility] [address] [id number] [place] [address]- 3514 Sep, [facility] [place] [facility] [address] [id number] [place] [address]- 2245 Sep, [facility] [place] [facility] [address] [id number] [place] [address]- 8272 August, [facility] [place] [facility] [address] [id number], [place] [address]- 2283 August, [facility] [place] [facility] [address] [id number], [place] [address]- 5114 August, [facility] [place] [facility] [address] [id number] [place] [address]- 6161 August, [facility] [place] [facility] [address] [id number] [place] [address]- 0704 August, [facility] [place] [facility] [address] [id number] [place] [address]- 6646 August, [facility] [place] [facility] [address] [id number] [place] [address]- 8557 Jul, [facility] [place] [facility] [address] [id number] [place] [address]- 0175 Jul, [facility] [place] [facility] [address] [id number] [place] [address]- 6504 Jul, [facility] [place] [facility] [address] [id number] [place] [address]- 7689 Jul, [facility] [place] [facility] [address] [id number] [place] [address]- 2872 Jul, [facility] [place] [facility] [address] [id number] [place] [address]- 6726 Jul, [facility] [place] [facility] [address] [id number] [place] [address]- 9706 Jun, [facility] [place] [facility] [address] [id number] [place] [address]- 1962 Jun, [facility] [place] [facility] [address] [id number] [place] [address]- 7023 May, [facility] [place] [facility] [address] [id number] [place] [address]- 8330 May, [facility] [place] [facility] [address] [facility] [id number] [place] [address]- 1441 May, [facility] [place] [facility] [address] [id number] [place] [address]- 2116 May, [facility] [place] [facility] [address] [id number] [place] [address]- 4339 Apr, [facility] [place] [facility] [address] [id number] [place] 2113 Apr, [facility] [place] [facility] [address] [id number] [place] 9734 Mar, [facility] [place] [facility] [address] [id number] [place] 0601 Mar, [facility] [place] [facility] [address] [id number] [place] [address]- 2871 Mar, [facility] [place] [facility] [address] [id number] [place] [address]- 2798 Mar, [facility] [place] [facility] [address] [id number] [place] [address]- 0940 Mar, [facility] [place] [facility] [address] [id number] [place] [address]- 0958 Mar, [facility] [place] [facility] [address] [id number] [place] [address]- 1160 Feb, [facility] [place] [facility] [address] [id number] [place] [address]- 0229 Feb, [facility] [place] [facility] [address] [id number] [place] [address]- 9697 Feb, [facility] [place] [facility] [address] [id number] [place] [address]- 2734 Feb, [facility] [place] [facility] [address] [id number] [place] [address]- 2923 Feb, [facility] [place] [facility] [address] [id number], [place] [address] Feb, [facility] [place] [facility] [address] [id number] [place] [address] Jan, [facility] [place] [facility] [address] [id number], [place] [address] 24 Jan, 2013 [facility] [place] [facility] [address] [id number] [place] [address] Jan, [facility] [place] [facility] [address] [id number] [place] [address] Jan, [facility] [place] [facility] [address] [id number] [address] 08 Jan, 2013 [facility] [place] [facility] [address] [id number] [place] [address] Jan, [facility] [address] [id number] [place] [address] Dec, [facility] [place] [facility] [address] [id number] [place] [address] Dec, [facility] [place] [facility] [address] [id number] [place] [address] Nov, [facility] [place] [facility] [address] [id number] [place] [address] Nov, [facility] [place] [facility] [address] [id number] [place] [address] Oct, [facility] [place] [facility] [address] [id number] [place] [address] Oct, [facility] [address] [id number] [place] [address] Oct, [facility] [place] [facility] [address] [id number] [place] [address] Oct, [facility] [place] [facility] [address] [id number] [place] [address] Oct, [facility] [place] [facility] [address] [id number] [place] [address] Oct, [facility] [place] [facility] [address] [id number] [place] [address] Sep, [facility] [place] [facility] [address] [id number] [place] [address] Sep, [facility] [place] [facility] [address] [id number] [place] [address] Sep, [facility] [place] [facility] [address] [id number] [place] [address] Sep, [facility] [place] [facility] [address] [id number] [place] [address] August, [facility] [place] [facility] [address] [id number] [place] [address] August, [facility] [address] [id number] [place] [address] August, [facility] [address] [id number] [place] [address] August, [facility] [address] [id number] [place] [address] August, [facility] [address] [id number] [place] [address] Jul, [facility] [address] [id number] [place] [address] Jul, [facility] [address] [id number] [place] [address] Jul, [facility] [address] [id number] [place] [address] Jul, [facility] [address] [id number] [place] [address] Jul, [facility] [address] [id number] [place] [address] Jul, [facility] [address] [id number] [place] [address] Jul, [facility] [address] [id number], [place] [address] Jul, [facility] [address] [id number] [place] [address] Jul, [facility] [address] [id number] [place] [address] Jul, [facility] [address] [id number] [place] [id number] Jun, [facility] [address] [id number] [place] [address] Jun, [facility] [address] [id number] [place] [address] Jun, [facility] [place] [facility] [address] [id number] [place] [address] Jun, [facility] [address] [id number] [place] [address] Jun, [facility] [place] [facility] [address] [id number] [place] [address] May, [facility] [address] [id number] [place] [address] May, [facility] [place] [facility] [address] [id number] [place] [address] May, [facility] [address] [id number] [place] [address] Apr, [facility] [address] [id number] [place] [address] Apr, [facility] [address] [id number] [place] [address] Apr, [facility] [address] [id number] [place] [address] Apr, [facility] [address] [id number] [place] [address] Apr, [facility] [place] [facility] [address] [id number], [place] [address] Apr, [facility] [place] [facility] [address] [id number] [place] [address] Mar, [facility] [place] [facility] [address] [id number] [place] [address] 0703 Mar, [facility] [place] [facility] [address] [id number] [place] [address] Mar, [facility] [place] [facility] [address] [id number] [place] [address] 97[address] Mar, [facility] [place] [facility] [address] [id number] [place] [address] 8144 Feb, [facility] [place] [facility] [address] [id number] [place] [address]100 Feb, [facility] [place] [facility] [address] [id number] [place] [address]600 Feb, [facility] [place] [facility] [address] [id number] [place] [address]- 5395 Feb, [facility] [place] [facility] [address] [id number] [place] [address]- [address] Feb, [facility] [place] [facility] [address] [id number] [place] [address] 2649 Feb, [facility] [place] [facility] [address] [id number] [place] [address]- 3341 Feb, [facility] [place] [facility] [address] [id number] [place] [address] 38[address] Feb, [facility] [place] [facility] [address] [id number] [place] [address] 8808 Feb, [facility] [place] [facility] [address] [facility] [id number] [place] [address] 3460 Feb, [facility] [place] [facility] [address] [id number] [place] [address] 3617 Feb, [facility] [place] [facility] [address] [id number], [place] [address] Feb, [facility] [place] [facility] [address] [id number] [place] [address]- 1804 Feb, [facility] [place] [facility] [address] [id number] [place] [address]- 0285 Feb, [facility] [place] [facility] [address] [id number], [place] [address]- [address] Feb, [facility] [place] [facility] [address] [id number] [place] [address]- 3552 Feb, [facility] [place] [facility] [address] [id number] [place] [address]- 5712 Jan, [facility] [place] [facility] [address] [id number] [place] [address] Jan, [facility] [place] [facility] [address] [id number] [place] [address]- 6876 Jan, [facility] [place] [facility] [address] [id number] [place] [address] 8360 Jan, [facility] [place] [facility] [address] [id number] [place] [address]- 3691 Jan, [facility] [place] [facility] [address] [id number] [place] [address]- 2888 Jan, [facility] [place] [facility] [address] [id number] [place] [address]- 6770 Jan, [facility] [place] [facility] [address] [id number] [place] [address]- 1481 Jan, [facility] [place] [facility] [address] [id number] [place] [address]- 1319 Jan, [facility] [place] [facility] [address] [id number] [place] [address]- 0644 Jan, [facility] [place] [facility] [address] [id number] [place] [address]- 1592 Jan, [facility] [place] [facility] [address] [id number] [place] [address]- 8452 Jan, [facility] [place] [facility] [address] [id number] [place] [address] 4463 Dec, [facility] [place] [facility] [address] [id number] [place] [address] 8782 Dec, [facility] [place] [facility] [address] [id number] [place] [address] 6481 24 Sep, 2011 [facility] [place] [facility] [address] [id number] [place] [address]- [address]26 23 Sep, 2011 [facility] [place] [facility] [address] [id number] [place] [address]- 3436 22 Sep, 2011 [facility] [place] [facility] [address] [id number] [place] [address] 2546 21 Sep, 2011 [facility] [place] [facility] [address] [id number] [place] [address] 2546 20 Sep, 2011 [facility] [place] [facility] [address] [id number] [place] [address]- 4747 20 Sep, 2011 [facility] [place] [facility] [address] [id number] [place] [address]- 2057 07 Sep, 2011 [facility] [place] [facility] [address] [id number] [place] [address]- 8145 06 Sep, 2011 [facility] [place] [facility] [address] [id number] [place] [address]- 5763 06 Sep, 2011 [facility] [place] [facility] [address] [id number] [place] [address]- 5613 05 Dec, 2011 [facility] [place] [facility] [address] [id number] [place] [address]- 1335 23 Nov, 2011 [facility] [place] [facility] [address] [id number] [place] [address]- 4650 17 Nov, 2011 [facility] [place] [facility] [address] [id number] [place] [address]- 1222 13 Nov, 2011 [facility] [place] [facility] [address] [id number] [place] [address]- 7026 10 Nov, 2011 [facility] [place] [facility] [address] [id number] [place] [address]- 6887 08 Nov, 2011 [facility] [place] [facility] [address] [id number] [place] [address]- 4583 07 Nov, 2011 [facility] [place] [facility] [address] [id number] [place] [address]- 2546 Nov, [facility] [address] [id number] [place] [address]- 3736 Nov, [facility] [address] [id number] [place] [address]- 7736 Oct, [facility] [address] [id number] [place] [address]- 2616 Oct, [facility] [address] [id number] [place] [address] 0948 Oct, [facility] [address] [id number] [place] [address]- 5910 Oct, [facility] [address] [id number] [place] [address]- 3222 Oct, [facility] [address] [id number] [place] [address]- 3596 Oct, [facility] [address] [id number] [place] [address]- 6978 Oct, [facility] [address] [id number] [place] [address]- 6418 Sep, [facility] [address] [id number] [place] [address]- 7796 Sep, [facility] [place] [facility] [address] [id number] [place] [address]- 6366 August, [facility] [address] [id number] [place] [address]- 2546 August, [facility] [place] [facility] [address] [id number] [place] [address]- 9476 August, [facility] [place] [facility] [address] [id number] [place] [address]- 2546 August, [facility] [address] [id number] [place] [address]- 4936 Jul, [facility] [address] [id number] [place] [address]- 8077 Jul, [facility] [place] [facility] [address] [id number] [place] [address]- 9528 Jul, [facility] [place] [facility] [address] [id number] [place] [address]- 6480 Jul, [facility] [place] [facility] [address] [id number] [place] [address]- 0887 Jul, [facility] [place] [facility] [address] [id number] [place] [address]- 9928 Jul, [facility] [place] [facility] [address] [id number] [place] [address]- 7429 Jul, [facility] [place] [facility] [address] [id number] [place] [address]- 5890 Jul, [facility] [place] [facility] [address] [id number] [place] [address]- 0521 Jul, [facility] [place] [facility] [address] [id number] [place] [address]- 6690 Jun, [facility] [place] [facility] [address] [id number] [place] [address]- 5903 Jun, [facility] [place] [facility] [address] [id number] [place] [address]- 2346 15 Jun, 2011 [facility] [place] [facility] [address] [id number], [place] [address]- [address]282 14 Jun, 2011 [facility] [place] [facility] [address] [id number] [place] [address]- 1083 12 Jun, 2011 [facility] [place] [facility] [address] [id number] [place] [address]- 6881 Jun, [facility] [place] [facility] [address] [id number], [place] [address]- 1806 Jun, [facility] [place] [facility] [address] [id number], [place] [address]- 4309 May, [facility] [address] [id number] [place] [address]- 7576 24 May, 2011 [facility] [place] [facility] [address] [id number] [place] [address] 2546 16 May, 2011 [facility] [address] [id number] [place] [address] 2546 May, [facility] [place] [facility] [address] [id number] [place] [address] 2546 May, [facility] [address] [id number] [place] [address]- 4036 Apr, [facility] [address] [id number] [place] [address]- 9976 Apr, [facility] [address] [id number] [place] [address]- 6283 Apr, [facility] [address] [id number] [place] [address]- 9644 Apr, [facility] [address] [id number] [place] [address]- 3705 Apr, [facility] [address] [id number] [place] [address]- 5993 Mar, [facility] [address] [id number] [place] [address] 2546 Mar, [facility] [place] [facility] [address] [id number] [place] [address] 2546 Mar, [facility] [place] [facility] [address] [id number] [place] [address] 2546 Mar, [facility] [place] [facility] [address] [id number] [place] [address] 2546 Mar, [facility] [address] [id number] [place] [address] 254 Mar, [facility] [place] [facility] [address] [id number] [place] [address]- 0749 Mar, [facility] [place] [facility] [address] [id number] [place] [address]- 5425 Feb, [facility] [place] [facility] [address] [id number] [place] [address]- 5917 Feb, [facility] [place] [facility] [address] [id number] [place] [address]- 5345 Feb, [facility] [place] [facility] [address] [id number] [place] [address]- 2570 Feb, [facility] [place] [facility] [address] [id number] [place] [address]- 1141 Jan, [facility] [place] [facility] [address] [id number] [place] [address]- 3329 Jan, [facility] [place] [facility] [address] [id number] [place] [address]- 9404 Jan, [facility] [place] [facility] [address] [id number] [place] [address]- 4745 Jan, [facility] [place] [facility] [address] [id number] [place] [address]- 9188 Nov, [facility] [place] [facility] [address] [id number] [place] [address]- 1149 Mar, [facility] [place] [facility] [address] [id number] [place] [address]- 2750 Mar, [facility] [place] [facility] [address] [id number] [place] [address]- 5577 Mar, [facility] [place] [facility] [address] [id number] [place] [address]- 9868 Mar, [facility] [place] [facility] [address] [id number] [place] [address]- 9378 Mar, [facility] [place] [facility] [address] [id number] [place] [address] 2546 Mar, [facility] [address] [facility] [id number] [place] [address]- 2546 Feb, [facility] [address] [facility] [id number], [place] [address]- 2546 Feb, [facility] [address] [facility] [id number], [place] [address]- 2546 Jan, [facility] [address] [facility] [id number], [place] [address]- 2546 Jan, [facility] [address] [facility] [id number], [place] [address]- 2546 Jan, IMMUNIZATIONS No Known Immunizations SOCIAL HISTORY Never Assessed REASON FOR VISIT New rx Urine Culture result PLAN OF CARE VITAL SIGNS MEDICATIONS Medication Instructions Dosage Frequency Start Date End Date Duration Status Levaquin 500 MG Orally Once a day 1 tablet 24h Feb, 5 days Active RESULTS No Results PROCEDURES No [...] Colonoscopy History of Polyps No Polyps on 2015 scope due to have repeat 2020 & 2007 Surgical History Bladder surgery [facility] 03/2016 Surgical History 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
[2018-05-29] MEDS ORDERED: NS IV 1000 ML 1,000 ML IV SCH ×2 (07:30→09:29)
--- OUTSIDE RECORDS SUMMARY | 2018-05-29 07:30 | XMS REPORT ---
Author Author ZHANE BOSCH [facility] Address [address] [place] [address] Care Team Providers Care Director Of Cardiology Service Line Name Role Phone ZHANE BOSCH Unavailable PROBLEMS Type Condition ICD9-CM Code [id number] Code Onset Dates Condition Status SNOMED Code Problem Generalized anxiety disorder F41.1 Active 36533903 Problem Low back pain M54.5 Active 600064911 Problem Coronary artery disease involving walk[place] coronary artery of [place] heart, angina presence unspecified I25.10 Active 0344236580337 Problem Dysthymic 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 Active 31586275 Problem Restless leg G25.81 Active 10230026 Problem Hypothyroid E03.9 Active 71401302 Problem Insomnia G47.00 Active 652268606 Problem Asthma J45.909 Active 968335441 Problem Palpitations R00.2 Active 89317847 Problem Anemia in chronic kidney disease D63.1 Active 951516685059508 Problem Depressed F32.9 Active 54475568 Problem Bipolar disorder, current episode manic without psychotic features F31.10 Active 477561944 Problem Chronic kidney disease, stage 4 (severe) N18.4 Active 691959288 Problem Degenerative tear of medial meniscus of left knee M23.204 Active 076977789 Problem Mood disorder F39 Active 54317552 Problem Primary osteoarthritis of left knee M17.12 Active 031072843 Problem Perimenopausal vasomotor symptoms N95.1 Active 995053126 Problem Chronic pain syndrome G89.4 Active 928141026 Problem Asthma with acute exacerbation in adult J45.901 Active 485450138 Problem History of colon polyps Z86.010 Active 740880292 Problem Functional 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 Active 28121713 Problem Body mass index (BMI) of 40.0-44.9 in adult Z68.41 Active 977147129 Problem Stage 3 chronic kidney disease N18.3 Active 762387281 Problem Restless leg syndrome G25.81 Active 18919996 Problem Seasonal allergic rhinitis due to pollen J30.1 Active 53109917 Problem Long-term use of high-risk medication Z79.899 Active 596160454 Problem Hypokalemia E87.6 Active 66258588 Problem Abnormal chest CT R93.8 Active 211058932 Problem Fibromyalgia M79.7 Active 574351494 Problem History of anemia Z86.2 Active 205403067 Problem Other seasonal allergic rhinitis J30.2 Active 712496838 Problem Essential (primary) hypertension I10 Active 14516634 Problem Chronic kidney disease, unspecified N18.9 Active 990549341 Problem Mixed stress and urge urinary incontinence N39.46 Active 231802854 Problem Vitamin D deficiency E55.9 Active 23445460 ALLERGIES No Information ENCOUNTERS Encounter Location Date Diagnosis [facility] [id number] [place] [address] 17171- 8940 Mar, [facility] [address] 98270- 8923 Feb, [facility] [address] 60954- 2616 Feb, [facility] [address] 74162- 7259 14 Feb, 2018 [facility] [id number] [place] [address] 01020- 8320 Feb, [facility] [id number] [place] [address] 39669- 0566 Feb, Fibromyalgia M79.7 [facility] [id number] [place] [address] 54591- 6175 08 Feb, 2018 Complicated UTI (urinary tract infection) N39.0 [facility] [id number] [place] [address] 73256- 7560 07 Feb, 2018 [facility] [id number] [place] [address] 40661- 3959 Jan, Generalized anxiety disorder F41.1 and Major depressive disorder, recurrent episode with anxious distress F33.9 [facility] [id number] [place] [address] 52725 -0093 Jan, Acute conjunctivitis of left eye, unspecified acute conjunctivitis type H10.32 [facility] [id number] [place] [address] 19668- 7910 Jan, [facility] [id number] [place] [address] 94532- 0017 Jan, Acute non-recurrent maxillary sinusitis J01.00 ; Dysuria R30.0 ; Perimenopausal vasomotor symptoms N95.1 and Fibromyalgia M79.7 [facility] [id number] [place] [address] 36364- 3311 28 Dec, 2017 Vitamin D deficiency E55.9 [facility] [id number] [place] [address] 09270- 7083 27 Dec, 2017 Vitamin D deficiency E55.9 [facility] [id number] [place] [address] 21228- 7740 24 Dec, 2017 Vitamin D deficiency E55.9 [facility] [id number] [place] [address] 83367- 8702 Dec, [facility] [id number] [place] [address] 09601- 6139 10 Dec, 2017 Fibromyalgia M79.7 [facility] [id number] [place] [address] 58153- 5429 Nov, [facility] [id number] [place] [address] 87337- 6165 Nov, [facility] [id number] [place] [address] 94028- 8221 Nov, [facility] [id number] [place] [address] 26271- 7390 Nov, Fibromyalgia M79.7 ; Vision changes H53.9 ; Chest wall pain R07.89 and Chronic pain syndrome G89.4 [facility] [id number] [place] [address] 86295- 7916 Nov, [facility] [address] [address] 2284 Nov, Rash of hands R21 [facility] [id number] [place] [address] 48270- 2658 Nov, Generalized anxiety disorder F41.1 and Major depressive disorder, recurrent episode with anxious distress F33.9 [facility] [id number] [place] [address] 17128- 3209 Nov, Fibromyalgia M79.7 [facility] [id number] [place] [address] 51560- 5089 Nov, Complicated UTI (urinary tract infection) N39.0 [facility] [id number] [place] [address] 62694- 9960 Oct, [facility] [id number] [place] [address] 34075- 2380 Oct, Generalized anxiety disorder F41.1 and Major depressive disorder, recurrent episode with anxious distress F33.9 [facility] [id number] [place] [address] 38103- 5212 Oct, [facility] [id number] [place] [address] 65368- 1915 Oct, Fibromyalgia M79.7 [facility] [id number] [place] [address] 32466- 0201 Sep, Restless leg syndrome G25.81 and Restless leg G25.81 [facility] [id number] [place] [address] 10932- 4650 Sep, [facility] [id number] [place] [address] 89134- 2315 Sep, Seasonal allergic rhinitis due to pollen J30.1 ; Screening for breast cancer Z12.31 ; Chest pain at rest R07.9 ; Restless leg syndrome G25.81 ; Essential (primary) hypertension I10 and Depressed F32.9 [facility] [address] [address] 1238 August, Fibromyalgia M79.7 [facility] [id number] [place] [address] 53943- 7631 August, [facility] [id number] [place] [address] 90574- 3210 August, [facility] [id number] [place] [address] 13650- [address] August, [address] R93.8 [facility] [id number] [place] [address] 33774- 6257 August, Generalized anxiety disorder F41.1 and Major depressive disorder, recurrent episode with anxious distress F33.9 [facility] [id number] [place] [address] 38135- [address]597 August, [address] R93.8 [facility] [id number] [place] [address] 35865- 2205 Jul, [facility] [id number] [place] [address] 54147- 1639 Jul, Chronic kidney disease, stage 4 (severe) N18.4 [facility] [id number] [place] [address] 88667- 2807 Jul, [facility] [id number] [place] [address] 78165- 3189 Jul, Restless leg G25.81 ; Mixed stress and urge urinary incontinence N39.46 and Fibromyalgia M79.7 [facility] [id number] [place] [address] 26661- 6925 Jul, Chronic kidney disease, stage 4 (severe) N18.4 [facility] [address] [address]- 7122 Jun, Orthostatic hypotension I95.1 ; Chronic kidney disease, stage 4 (severe) N18.4 ; Chest wall discomfort R07.89 and Body mass index (BMI) of 40.0-44.9 in adult Z68.41 [facility] [id number] [place] [address] 03479- 9179 Jun, [facility] [id number] [place] [address] 04400- 5524 Jun, Orthostatic hypotension I95.1 [facility] [address] 93212- 6323 Jun, [facility] [id number] [place] [address] 44008 -0408 Jun, Orthostatic hypotension I95.1 ; Dysuria R30.0 and Acute cystitis without hematuria N30.00 [facility] [id number] [place] [address] 03693- 5212 Jun, [facility] [id number] [place] [address] 12107- 3937 Jun, Chronic kidney disease, stage 4 (severe) N18.4 [facility] [id number] [place] [address] 68192- 2349 Jun, Fibromyalgia M79.7 [facility] [id number] [place] [address] 46495- 4856 Jun, [facility] [id number] [place] [address] 93786- 8938 Jun, [facility] [id number] [place] [address] 70005- [address] May, [address] R93.8 and Stage 3 chronic kidney disease N18.3 [facility] [id number] [place] [address] 70829- 2207 May, Chronic kidney disease, stage 4 (severe) N18.4 [facility] [id number] [place] [address] 73088- 0398 May, Chronic kidney disease, stage 4 (severe) N18.4 [facility] [id number] [place] [address] 17683- 45[address] May, [address] R93.8 [facility] [id number] [place] [address] 71421- 3148 May, [facility] [id number] [place] [address] 50121- 9170 May, [facility] [id number] [place] [address] 11054- 8799 May, Generalized anxiety disorder F41.1 and Major depressive disorder, recurrent episode with anxious distress F33.9 [facility] [id number] [place] [address] 26800- 8384 May, Mood disorder F39 [facility] [id number] [place] [address] 27865- 1038 Apr, [facility] [id number] [place] [address] 88950- 7351 Apr, Infected skin lesion L08.9 and Muscle strain of right shoulder region, initial encounter S46.911A [facility] [id number] [place] [address] 76108- 7959 Apr, Generalized anxiety disorder F41.1 and Major depressive disorder, recurrent episode with anxious distress F33.9 [facility] [address] [place] [address] 41189- 4858 Apr, [facility] [id number] [place] [address] 49484- 1267 Apr, Recent urinary tract infection Z87.440 and Hypothyroid E03.9 [facility] [address] [place] [address] 70888- 0513 Apr, Generalized anxiety disorder F41.1 and Major depressive disorder, recurrent episode with anxious distress F33.9 [facility] [id number] [place] [address] 71081- 4675 Apr, Recent urinary tract infection Z87.440 [facility] [address] [address]- 7551 Mar, [facility] [id number] [place] [address] 28790 -7619 Mar, Dysuria R30.0 ; Acute cystitis without hematuria N30.00 and BMI 40.0-44.9, adult Z68.41 [facility] [id number] [place] [address] 12935- 5776 Mar, [facility] [id number] [place] [address] 00429- 2599 Mar, [facility] [id number] [place] [address] 28723- 2182 Mar, Generalized anxiety disorder F41.1 and Major depressive disorder, recurrent episode with anxious distress F33.9 [facility] [id number] [place] [address] 45616- 0303 Feb, Conjunctivitis, bacterial H10.9 [facility] [id number] [place] [address] 17707- 0504 Feb, [facility] [place] [id number] [place] [address] 54917 -4505 Feb, Conjunctivitis, bacterial H10.9 [facility] [facility] [id number] [place] [address] 82527- 9624 Feb, [facility] [id number] [place] [address] 92263 -2201 Feb, Dysuria R30.0 ; Acute cystitis N30.00 and BMI 40.0-44.9, adult Z68.41 [facility] [id number] [place] [address] 17390- 7005 08 Feb, 2017 [facility] [id number] [place] [address] 04982- 5108 01 Nov, 2017 Generalized anxiety disorder F41.1 and Major depressive disorder, recurrent episode with anxious distress F33.9 [facility] [id number] [place] [address] 47090- 0672 Feb, Mood disorder F39 and BMI 40.0-44.9, adult Z68.41 [facility] [id number] [place] [address] 33362- 6986 Jan, [facility] [address] 49070- 6525 Jan, [facility] [id number] [place] [address] 51431- 4569 Jan, Hypothyroid E03.9 [facility] [address] 08394- 6380 Jan, [facility] [address] 32262- 7222 Jan, Chronic kidney disease, unspecified N18.9 ; Hypokalemia E87.6 ; Essential (primary) hypertension I10 ; Fibromyalgia M79.7 ; Coronary artery disease involving [place] coronary artery of [place] heart, angina presence unspecified I25.10 ; Hypothyroid E03.9 and Encounter for immunization Z23 [facility] [id number] [place] [address] 88127- 9900 Jan, Hypothyroid E03.9 [facility] [id number] [place] [address] 22884- 6942 Jan, [facility] [id number] [place] [address] 25863- 0422 Dec, Vitamin D deficiency E55.9 [facility] [id number] [place] [address] 94898- 2573 Dec, Primary osteoarthritis of left knee M17.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 [facility] [id number] [place] [address] 07283- 9770 Dec, Fibromyalgia M79.7 [facility] [address] [address]- 1634 18 Sep, 2017 Mood disorder F39 [facility] [id number] [place] [address] 90359 2546 2016 [facility] [id number] [place] [address] 83901- 1761 2016 Generalized anxiety disorder F41.1 and Major depressive disorder, recurrent episode with anxious distress F33.9 [facility] [address] [address]- 8477 11 Dec, 2016 [facility] [id number] [place] [address] 90113- 7827 08 Dec, 2016 Streptococcal meningitis G00.2 [facility] [address] [place] [address] 77682- 8681 07 Dec, 2016 Streptococcal meningitis G00.2 [facility] [id number] [place] [address] 04916- 1056 07 Dec, 2016 [facility] [address] [place] [address] 28756- 7946 06 Dec, 2016 Streptococcal meningitis G00.2 [facility] [address] [address] 2544 06 Dec, 2016 [facility] [id number] [place] [address] 90852- 4448 06 Dec, 2016 Major depressive disorder, recurrent episode with anxious distress F33.9 [facility] [address] [address]- 7495 Nov, Fever, unspecified fever cause R50.9 [facility] [address] [address]- 7548 24 Nov, 2016 [facility] [address] [address]- 5264 Nov, Hypothyroid E03.9 [facility] [address] [place] [address] 13176- 1964 Nov, Generalized anxiety disorder F41.1 and Major depressive disorder, recurrent episode with anxious distress F33.9 [facility] [id number] [place] [address] 41276- 9065 Nov, [facility] [address] [place] [address] [id number] Oct, Dental examination Z01.20 [facility] [id number] [place] [address] 51390- 6248 Oct, Generalized anxiety disorder F41.1 and Major depressive disorder, recurrent episode with anxious distress F33.9 [facility] [id number] [place] [address] 64371- 6325 Oct, Chronic kidney disease, stage 4 (severe) N18.4 [facility] [address] 38135- 7216 Oct, [facility] [id number] [place] [address] 32089- 8379 Oct, Fibromyalgia M79.7 [facility] [id number] [place] [address] 81399- 7942 Oct, [facility] [id number] [place] [address] 38152- 9232 Oct, Generalized anxiety disorder F41.1 ; Major depressive disorder, recurrent episode with anxious distress F33.9 and Bipolar disorder, current episode manic without psychotic features F31.10 [facility] [address] [place] [address] 45344- 7034 Sep, [facility] [id number] [place] [address] 47507- 4001 Sep, [facility] [id number] [place] [address] 91313- 0758 Sep, Vitamin D deficiency E55.9 [facility] [id number] [place] [address] 00411- 5512 Sep, Vitamin D deficiency E55.9 [facility] [place] [address] [place] [address] 19084- 5982 Sep, [facility] [id number] [place] [address] 70121- 8481 Sep, Chronic kidney disease, stage 4 (severe) N18.4 ; Hypothyroid E03.9 ; Restless leg G25.81 ; Fibromyalgia M79.7 ; Essential ( primary) hypertension I10 ; Vitamin D deficiency E55.9 ; Dyspepsia R10.13 ; Anemia in chronic kidney disease D63.1 ; Chronic kidney disease, unspecified N18.9 ; Coronary artery disease involving [place] coronary artery of [place] heart , angina presence unspecified I25.10 ; Screening breast examination Z12.39 and Low back pain M54.5 [facility] [id number] [place] [address] 48470- 9507 August, Generalized anxiety disorder F41.1 and Major depressive disorder, recurrent episode with anxious distress F33.9 [facility] [id number] [place] [address] 13577- 3376 August, Generalized anxiety disorder F41.1 and Major depressive disorder, recurrent episode with anxious distress F33.9 [facility] [id number] [place] [address] 49198- 6660 August, Fibromyalgia M79.7 [facility] [id number] [place] [address] 07140- 8338 Jul, Generalized anxiety disorder F41.1 and Major depressive disorder, recurrent episode with anxious distress F33.9 [place] [address] [place] [address] 07326- 8934 Jul, Fibromyalgia M79.7 [facility] [id number] [place] [address] 48334- 9220 Jul, Generalized anxiety disorder F41.1 [facility] [id number] [place] [address] 14369- 5549 May, [facility] [place] [id number] [place] [address] 54261- 7958 May, Hypothyroid E03.9 [facility] [id number] [place] [address] 56720- 4761 May, Chronic kidney disease, stage 4 (severe) N18.4 ; Hypothyroid E03.9 ; Restless leg G25.81 ; Fibromyalgia M79.7 ; Essential ( primary) hypertension I10 ; Vitamin D deficiency E55.9 ; Dyspepsia R10.13 ; Acute non-recurrent maxillary sinusitis J01.00 ; Anemia in chronic kidney disease D63.1 ; Chronic kidney disease, unspecified N18.9 and Coronary artery disease involving [place] coronary artery of [place] heart, angina presence unspecified I25.10 [facility] [id number] [place] [address] 95209- 9137 May, Vitamin D deficiency, unspecified E55.9 [facility] [id number] [place] [address] 35356- 6001 May, Generalized anxiety disorder F41.1 and Major depressive disorder, recurrent episode with anxious distress F33.9 [facility] [id number] [place] [address] 29547- 2141 Apr, Pain in right knee M25.561 and Pain in left knee M25.562 [facility] [id number] [place] [address] 52670- 7894 Apr, [facility] [address] [place] [id number] [place] [address] 98711- 1542 Apr, [place] [address] [address] [id number] [place] [address] 38009- 8959 Apr, [place] [address] [place] [address] [id number] [place] [address] 64979- 9447 Mar, Generalized anxiety disorder F41.1 and Major depressive disorder, recurrent episode with anxious distress F33.9 [place] [address] [place] [address] [id number] [place] [address] 91357- 0763 Mar, Generalized anxiety disorder F41.1 and Major depressive disorder, recurrent episode with anxious distress F33.9 [place] [address] [place] [id number] [place] [address] 46622- 0798 Mar, [place] [address] [place] [id number] [place] [address] 40415- 2248 Mar, [place] [address] 51071- 4761 Mar, [place] [address] 97151- 6624 Mar, Asthma J45.909 and Fibromyalgia M79.7 [place] [address] 25875- 4856 Mar, Chronic kidney disease, stage 4 (severe) N18.4 ; Vitamin D deficiency E55.9 and Essential (primary) hypertension I10 [place] [address] [place] [id number] [place] [address] 89096- 0492 Feb, [place] [address] 43433- 5706 Feb, Dysuria R30.0 ; Mixed stress and urge urinary incontinence N39.46 ; Fibromyalgia M79.7 and Chronic kidney disease, stage IV (severe) N18.4 [place] [address] [place] [id number] [place] [address] 22584- 9534 Feb, Chronic kidney disease, stage 4 (severe) N18.4 [place] [address] [place] [id number] [place] [address] 13127- 6016 Feb, Chronic kidney disease, stage 4 (severe) N18.4 [place] [address] [place] [id number] [place] [address] 28796- 1145 Feb, [place] [address] [id number] [place] [address] 79050- 7227 Feb, Vitamin D deficiency, unspecified E55.9 [facility] [id number] [place] [address] 59199- 7749 Jan, [facility] [id number] [place] [address] 10073- 6274 Jan, [facility] [id number] [place] [address] 26235- 3801 Dec, [facility] [address] [place] [id number] [place] [address] 62929- 0086 Dec, Chronic kidney disease, stage 4 (severe) N18.4 [place] [address] [place] [id number] [place] [address] 65038- 9601 Dec, Dysthymic 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 and Generalized anxiety disorder F41.1 [place] [address] [place] [address] [id number] [place] [address] 77264- 6003 Dec, [place] [address] [id number] [place] [address] 33883- 7545 Dec, [place] [address] [place] [id number] [place] [address] 03568- 2529 Dec, Dysthymic 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 and Generalized anxiety disorder F41.1 [place] [address] [place] [id number] [place] [address] 22502- 4861 Dec, Dysuria R30.0 ; Chronic kidney disease, stage 4 (severe) N18.4 ; Hypertension I10 ; Dyspepsia R10.13 ; Yeast dermatitis B37.2 ; Palpitations R00.2 ; Hypothyroid E03.9 ; Functional 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 and Other seasonal allergic rhinitis J30.2 [facility] [id number] [place] [address] 50250 -7914 Dec, [facility] [id number] [place] [address] 91270 -6239 Nov, Dysuria R30.0 and Stress incontinence N39.3 [place] [address] [place] [address]- 7944 Nov, [facility] [id number] [place] [address] 39696- 6280 Nov, [facility] [address] 40670- 0752 Nov, Osteoarthritis of knees, bilateral M17.0 [place] [address] 02258- 3335 Nov, Dysthymic 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 and Generalized anxiety disorder F41.1 [place] [address] 72891- 8916 Nov, [place] [address] 06879- 5206 Nov, [place] [address] 86981- 1319 Nov, Urgency of urination R39.15 [place] [address] 25743- 9810 Nov, [place] [address] 88493- 9863 Nov, Chronic kidney disease, stage 4 (severe) N18.4 [place] [address] 52491- 5516 Oct, Hypertension I10 ; Coronary artery disease involving walk[place] river coronary artery of [place] heart, angina presence unspecified I25.10 ; Palpitations R00.2 ; Hypothyroid E03.9 ; Right foot pain M79.671 ; Functional 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 and Other seasonal allergic rhinitis J30.2 [place] [address] 48328- 8539 Oct, Dysthymic 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 and Generalized anxiety disorder F41.1 [place] [address] 34669- 4617 Sep, [place] [address] [address]- 6034 Sep, [place] [id number] [place] [address] 22192- 3363 Sep, [facility] [id number] [place] [address] 41480- 2671 Sep, [place] [id number] [place] [address] 04089- 0802 Sep, [place] [address] [place] [id number] [place] [address] 05928- 5364 Sep, Dysthymic 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 and Generalized anxiety disorder F41.1 [place] [address] [place] [id number] [place] [address] 54946- 9245 16 Sep, 2015 Asthma with acute exacerbation in adult J45.901 ; Dysuria R30.0 ; Chronic kidney disease, stage 4 (severe) N18.4 and History of anemia Z86.2 [place] [id number] [place] [address] 75094- 5358 Sep, Generalized anxiety disorder F41.1 and Dysthymic 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 [place] [address] [place] [id number] [place] [address] 21642- 1801 August, Screening breast examination Z12.39 and Acute recurrent maxillary sinusitis J01.01 [place] [id number] [place] [address] 73750- 9689 August, Osteoarthritis of knees, bilateral M17.0 [place] [id number] [place] [address] 45907- 4295 August, Chronic kidney disease, stage 4 (severe) N18.4 ; Acute non- recurrent maxillary sinusitis J01.00 ; Urinary problem R39.89 ; Bowel habit changes R19.4 ; Functional 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 and History of colon polyps Z86.010 [place] [id number] [place] [address] 71440- 8560 Jul, Dysthymic 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 and Generalized anxiety disorder F41.1 [place] [address] [address]- 5822 Jul, [place] [address] [place] [id number] [place] [address] 58960- 3610 Jul, Dysthymic 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 ; Generalized anxiety disorder F41.1 and senior care use of drug Z79.899 [place] [address] [place] [address] [id number] [place] [address] 10826- 1357 Jul, [facility] [address] [place] [id number] [place] [address] 90586- 0012 Jun, [place] [address] [place] [address] [id number] [place] [address] 90210- 9221 Jun, [place] [address] [place] [address] [id number] [place] [address] 82414- 3719 May, [place] [address] [place] [address] [id number] [place] [address] 49883- 2410 May, Dysthymic 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 and Generalized anxiety disorder F41.1 [place] [address] [place] [id number] [place] [address] 25514- 1154 Apr, Kidney disease N28.9 [place] [address] [place] [id number] [place] [address] 90931- 6916 Apr, Generalized anxiety disorder F41.1 and Dysthymic 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 [place] [address] [place] [id number] [place] [address] 67101- 9502 Apr, Chronic kidney disease, stage 4 (severe) N18.4 [place] [address] [place] [id number] [place] [address] 29735- 3890 Apr, Generalized anxiety disorder F41.1 ; Major depression, recurrent F33.9 and Sleep disturbance G47.9 [place] [address] [place] [id number] [place] [address] 01872- 7103 Mar, Generalized anxiety disorder F41.1 and Dysthymic 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 [facility] [address] [place] [id number] [place] [address] 24022- 1409 Mar, Generalized anxiety disorder F41.1 ; Dysthymic 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 and Insomnia G47.00 [facility] [address] [place] [id number] [place] [address] 23316- 6831 Mar, [facility] [address] 18754- 9070 Mar, [facility] [address] [place] [id number] [place] [address] 81818- 3860 Mar, Osteoarthritis of knees, bilateral M17.0 [facility] [address] [place] [id number] [place] [address] 76201- 0010 Mar, Hypertension I10 ; Hypothyroid E03.9 ; Dysthymic 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 ; Chronic kidney disease, stage 4 (severe) N18.4 and Nausea & vomiting R11.2 [facility] [address] [place] [id number] [place] [address] 41763- 4670 Mar, Generalized anxiety disorder F41.1 ; Dysthymic 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 and Insomnia G47.00 [facility] [address] [place] [id number] [place] [address] 32819- 7794 Mar, Dehydration E86.0 ; Chronic kidney disease, stage 4 (severe ) N18.4 and Nausea & vomiting R11.2 [facility] [address] [place] [id number] [place] [address] 98993 -4264 Mar, Gastroenteritis K52.9 [facility] [address] [id number] [place] [address] 12239- 6423 Mar, [facility] [id number] [place] [address] 21916- 0101 Mar, [facility] [address] [place] [id number] [place] [address] 79511- 4063 Feb, Dysthymic 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 and Generalized anxiety disorder F41.1 [place] [address] [place] [id number] [place] [address] 43452- 7953 Jan, UTI (urinary tract infection) N39.0 ; Asthma J45.909 ; Coronary artery disease involving walk[place] coronary artery of walk[place] heart, angina presence unspecified I25.10 ; Hypertension I10 ; Hypothyroid E03.9 ; Vitamin D deficiency E55.9 ; Insomnia G47.00 ; Palpitations R00.2 ; Depressed F32.9 ; Restless leg G25.81 and Anxiety F41.9 [place] [address] [place] [id number] [place] [address] 50503- 1780 Jan, Dysthymic 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 and Generalized anxiety disorder F41.1 [place] [address] [place] [id number] [place] [address] 31189- 8406 Jan, [place] [address] 50018- 4153 30 Dec, 2014 [place] [address] [place] [id number] [place] [address] 07624- 3335 28 Dec, 2014 Alkalosis 276.3 ; Chronic kidney disease, 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.4 ; Hyperpotassemia 276.7 ; Secondary hyperparathyroidism, renal 588.81 ; Proteinuria 791.0 ; Unspecified vitamin D deficiency 268.9 ; Anemia in chronic kidney disease 285.21 ; Other and unspecified hyperlipidemia 272.4 ; Hypertension, essential, benign 401.1 and Chronic kidney disease (CKD), stage III (moderate) 585.3 [place] [address] [place] [id number] [place] [address] 42369- 3902 Dec, [address] 12358- 3536 16 Dec, 2014 Depressive disorder, not elsewhere classified 311 and Generalized anxiety disorder 300.02 [place] [address] [place] [id number] [place] [address] 83466- 7023 Dec, [place] [address] 86532- 2208 Dec, [place] [address] [place] [id number] [place] [address] 29111- 7220 Nov, Depressive disorder, not elsewhere classified 311 and Generalized anxiety disorder 300.02 [place] [address] [place] [id number] [place] [address] 95218- 9483 Nov, Arthritis of both knees 716.[address] 85887- 8331 Nov, PAF (paroxysmal atrial fibrillation) 427.31 ; CAD (coronary artery disease) 414.00 ; Chest pain 786.50 and Chronic kidney disease (CKD) stage G4/A1, severely decreased glomerular filtration rate (GFR) between 15-29 mL/min/1.73 square meter and albuminuria creatinine ratio less than 30 mg/g 585.4 [place] [id number] [place] [address] 36755- 1255 Oct, Coronary atherosclerosis of unspecified type of vessel, walk[place] river or graft 414.00 ; Chronic kidney disease, 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.4 ; Hypertension 401.9 and Edema 782.3 [place] [id number] [place] [address] 04906- 1304 Oct, Depressive disorder, not elsewhere classified 311 and Generalized anxiety disorder 300.02 [place] [address] [place] [id number] [place] [address] 49482- 5906 Oct, Depressive disorder, not elsewhere classified 311 and Generalized anxiety disorder 300.02 [place] [address] [place] [id number] [place] [address] 31906- 5156 Oct, [place] [address] [place] [id number] [place] [address] 03695- 4438 Oct, [place] [address] [place] [id number] [place] [address] 01093- 4024 Sep, [place] [address] [place] [id number] [place] [address] 51321- 2538 Sep, Chronic kidney disease, 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.4 [facility] [address] [id number] [place] [address] 38309- 0061 Sep, [facility] [address] [id number] [place] [address] 16667- 0396 Sep, Coronary atherosclerosis of unspecified type of vessel, walk[place] or graft 414.00 ; Hypertension 401.9 ; Edema 782.3 and Hypothyroidism 244.9 [place] [address] [place] [id number] [place] [address] 46836- 3045 Sep, Coronary atherosclerosis of unspecified type of vessel, [place] or graft 414.00 ; Hypertension 401.9 ; Fibromyalgia 729.1 ; Edema 782.3 ; Hypothyroidism 244.9 and Anemia 285.9 [place] [id number] [place] [address] 98123- 1263 Sep, Anxiety disorder, unspecified 300.00 and Depressive disorder , not elsewhere classified 311 [place] [address] [place] [id number] [place] [address] 51084- 8654 Sep, [facility] [address] [place] [id number] [place] [address] 26270- 7183 August, Generalized anxiety disorder 300.02 [place] [address] [place] [id number] [place] [address] 98897- 3421 August, Closed fracture of lateral malleolus 824.2 [place] [address] [place] [id number] [place] [address] 75687- 1002 Jul, [facility] [address] [id number] [place] [address] 69843- 7126 Jul, [facility] [address] [place] [id number] [place] [address] 92412- 0978 Jun, [facility] [address] [place] [id number] [place] [address] 86182- 2730 Jun, [facility] [address] [place] [id number] [place] [address] 79528- 8521 Jun, [facility] [place] [facility] [address] [id number] [place] [address]- 3021 Jun, [facility] [place] [facility] [address] [id number] [place] [address]- 6627 Jun, [facility] [place] [facility] [address] [id number] [place] [address]- 4813 Jun, [facility] [place] [facility] [address] [id number] [place] [address]- 0876 May, 2014 [facility] [place] [facility] [address] [id number] [place] [address]- 4791 May, 2014 [facility] [place] [facility] [address] [id number] [place] [address]- 2481 May, 2014 [facility] [place] [facility] [address] [id number] [place] [address]- 7572 18 May, 2014 [facility] [place] [facility] [address] [id number] [place] [address]- 1772 16 May, 2014 [facility] [place] [facility] [address] [id number] [place] [address]- 2453 16 May, 2014 [facility] [place] [facility] [address] [id number] [place] [address]- 7071 May, 2014 [facility] [place] [facility] [address] [id number] [place] [address]- 1740 May, 2014 [facility] [place] [facility] [address] [id number] [place] [address]- 6142 10 May, 2014 [facility] [place] [facility] [address] [id number] [place] [address]- 5748 May, [facility] [place] [facility] [address] [id number] [place] [address]- 7167 Apr, [facility] [place] [facility] [address] [id number] [place] [address]- 5429 Apr, [facility] [place] [facility] [address] [id number] [place] [address]- 1123 Mar, [facility] [place] [facility] [address] [id number] [place] [address]- 8810 Mar, [facility] [place] [facility] [address] [id number] [place] [address]- 8692 Mar, [facility] [place] [facility] [address] [id number] [place] [address]- 3354 Mar, [facility] [place] [facility] [address] [id number] [place] [address]- 7799 Mar, [facility] [place] [facility] [address] [id number] [place] [address]- 1526 Mar, [facility] [place] [facility] [address] [id number] [place] [address]- 0706 Mar, [facility] [place] [facility] [address] [id number] [place] [address]- 7508 Feb, [facility] [place] [facility] [address] [id number] [place] [address]- 2188 Feb, [facility] [place] [facility] [address] [id number] [place] [address]- 8892 Feb, [facility] [place] [facility] [address] [id number] [place] [address]- 6351 Jan, [facility] [place] [facility] [address] [id number] [place] [address]- 9804 Jan, [facility] [place] [facility] [address] [id number] [place] [address]- 5422 Jan, [facility] [place] [facility] [address] [id number] [place] [address]- 7330 Jan, [facility] [place] [facility] [address] [id number] [place] [address]- 8024 Jan, [facility] [place] [facility] [address] [id number] [place] [address]- 9651 Jan, [facility] [place] [facility] [address] [id number] [place] [address]- 5929 Jan, [facility] [place] [facility] [address] [id number] [place] [address]- 1819 Jan, [facility] [place] [facility] [address] [id number] [place] 2027 Jan, [facility] [place] [facility] [address] [id number] [place] [address]- 5399 Jan, [facility] [place] [facility] [address] [id number] [place] [address]- 4177 Nov, [facility] [place] [facility] [address] [id number] [place] [address]- 3729 Nov, [facility] [place] [facility] [address] [id number] [place] [address]- 6769 Nov, [facility] [place] [facility] [address] [id number] [place] [address]- 1086 Oct, [facility] [place] [facility] [address] [id number] [place] [address]- 9741 Oct, [facility] [place] [facility] [address] [id number] [place] [address]- 6203 Oct, [facility] [place] [facility] [address] [id number] [place] [address]- 4839 Oct, [facility] [place] [facility] [address] [id number] [place] [address]- 4308 Oct, [facility] [place] [facility] [address] [id number] [place] [address]- 2788 Oct, [facility] [place] [facility] [address] [id number] [place] [address]- 1408 Oct, [facility] [place] [facility] [address] [id number] [place] 8391 Oct, [facility] [place] [facility] [address] [id number] [address]- 2475 Oct, [facility] [place] [facility] [address] [id number] [place] [address]- 8572 Sep, [facility] [place] [facility] [address] [id number] [place] [address]- 4917 Sep, [facility] [place] [facility] [address] [id number] [place] [address]- 2707 Sep, [facility] [place] [facility] [address] [id number] [place] [address]- 8318 Sep, [facility] [place] [facility] [address] [id number] [place] [address]- 7712 Sep, [facility] [place] [facility] [address] [id number] [place] [address]- 0404 Sep, [facility] [place] [facility] [address] [id number] [place] [address]- 5859 Sep, [facility] [place] [facility] [address] [id number] [place] [address]- 8829 Sep, [facility] [place] [facility] [address] [id number] [place] [address]- 0124 Sep, [facility] [place] [facility] [address] [id number] [place] [address]- 1117 August, [facility] [place] [facility] [address] [id number] [place] [address]- 0693 August, [facility] [place] [facility] [address] [id number] [place] [address]- 4882 August, [facility] [place] [facility] [address] [id number] [place] [address]- 4004 August, [facility] [place] [facility] [address] [id number] [place] [address]- 0793 August, [facility] [place] [facility] [address] [id number] [place] [address]- 5820 August, [facility] [place] [facility] [address] [id number] [place] [address]- 3891 Jul, [facility] [place] [facility] [address] [id number] [place] [address]- 4833 Jul, [facility] [place] [facility] [address] [id number] [place] [address]- 3900 Jul, [facility] [place] [facility] [address] [id number] [place] [address]- 7939 Jul, [facility] [place] [facility] [address] [id number] [place] [address]- 7007 Jul, [facility] [place] [facility] [address] [id number] [place] [address]- 9563 Jul, [facility] [place] [facility] [address] [id number] [place] [address]- 0484 Jun, [facility] [place] [facility] [address] [id number] [place] [address]- 5655 Jun, [facility] [place] [facility] [address] [id number] [place] [address] May, [facility] [place] [facility] [address] [id number] [place] [address] May, [facility] [place] [facility] [address] [id number] [place] [address] May, [facility] [place] [facility] [address] [id number] [place] [address] May, [facility] [place] [facility] [address] [id number] [place] [address] Apr, [facility] [place] [facility] [address] [id number] [place] [address] Apr, [facility] [place] [facility] [address] [id number] [place] [address] Mar, [facility] [place] [facility] [address] [id number], [place] [address] 18 Mar, 2013 [facility] [place] [facility] [address] [id number] [place] [address] 17 Mar, 2013 [facility] [place] [facility] [address] [id number] [place] [address] 17 Mar, 2013 [facility] [place] [facility] [address] [facility] [id number] [place] [address] 05 Mar, 2013 [facility] [place] [facility] [address] [id number][place] [address] 05 Mar, 2013 [facility] [place] [facility] [address] [id number] [place] [address] Feb, [facility] [place] [facility] [address] [id number] [place] [address] Feb, [facility] [place] [facility] [address] [id number] [place] [address] Feb, [facility] [place] [facility] [address] [id number], [place] [address] Feb, [facility] [place] [facility] [address] [id number], [place] [address] Feb, [facility] [place] [facility] [address] [id number], [place] [address] Feb, [facility] [place] [facility] [address] [id number][place] [address] 24 Jan, 2013 [facility] [place] [facility] [address] [id number], [place] [address] 24 Jan, 2013 [facility] [place] [facility] [address] [id number], [place] [address] 10 Jan, 2013 [facility] [place] [facility] [address] [id number], [place] [address] 10 Jan, 2013 [facility] [place] [facility] [address] [facility] [id number], [place] [address] 08 Jan, 2013 [facility] [place] [facility] [address] [id number] [place] [address] 254 Jan, [facility] [address] [id number] [place] [address] Dec, [facility] [place] [facility] [address] [id number] [place] [address] Dec, [facility] [address] [id number] [place] [address] Nov, [facility] [address] [id number] [place] [address] Nov, [facility] [address] [id number] [place] [address] Oct, [facility] [address] [id number] [place] [address] Oct, [facility] [address] [id number] [place] [address] Oct, [facility] [address] [id number] [place] [address] Oct, [facility] [address] [id number] [place] [address] Oct, [facility] [address] [id number] [place] [address] Oct, [facility] [place] [facility] [address] [id number] [place] [address] Sep, [facility] [address] [id number] [place] [address] Sep, [facility] [place] [facility] [address] [id number] [place] [address] Sep, [facility] [place] [facility] [address] [id number] [place] [address] Sep, [facility] [place] [facility] [address] [id number] [place] [address] August, [facility] [address] [id number] [place] [address] August, [facility] [address] [id number] [place] [address] August, [facility] [address] [id number] [place] [address] August, [facility] [address] [id number] [place] [address]- 74[address] August, [facility] [address] [id number] [place] [address] Jul, [facility] [address] [id number] [place] [address] Jul, [facility] [address] [id number] [place] [address] Jul, [facility] [address] [id number] [place] [address] Jul, [facility] [address] [id number] [place] [address] 1666 Jul, [facility] [address] [id number] [place] [address] 4665 Jul, [facility] [address] [id number] [place] [address] Jul, [facility] [address] [id number], [place] [address] Jul, [facility] [address] [id number] [place] [address] Jul, [facility] [address] [id number] [place] [address] Jul, [facility] [address] [id number] [id number] Jun, [facility] [address] [id number], [place] [address] Jun, [facility] [address] [id number] [place] [address] Jun, [facility] [address] [id number] [place] [address]396 Jun, [facility] [address] [id number] [place] [address]- 1345 Jun, [facility] [place] [facility] [address] [id number] [place] [address] 3964 May, [facility] [place] [facility] [address] [id number] [place] [address] 1988 May, [facility] [place] [facility] [address] [id number] [place] [address] May, [facility] [address] [id number] [place] [address]- 2610 Apr, [facility] [address] [id number] [place] [address]- 57[address] Apr, [facility] [address] [id number] [place] [address]- [address] Apr, [facility] [address] [id number] [place] [address]- 0627 Apr, [facility] [address] [id number] [place] [address]- 5[address] Apr, [facility] [place] [facility] [address] [id number] [place] [address] 9224 Apr, [facility] [place] [facility] [address] [id number] [place] [address] 1987 Mar, [facility] [place] [facility] [address] [id number] [place] [address]- 4795 Mar, [facility] [place] [facility] [address] [id number] [place] [address]- 2913 Mar, [facility] [place] [facility] [address] [id number] [place] [address]- 1176 Mar, [facility] [place] [facility] [address] [id number] [place] [address]- 0730 Feb, [facility] [place] [facility] [address] [id number] [place] [address]- 0999 Feb, [facility] [place] [facility] [address] [id number] [place] [address]- 2212 Feb, [facility] [place] [facility] [address] [id number] [place] [address]- 4943 Feb, [facility] [place] [facility] [address] [id number] [place] [address]- 5537 Feb, [facility] [place] [facility] [address] [id number] [place] [address]- 5933 Feb, [facility] [place] [facility] [address] [id number] [place] [address]- 8448 Feb, [facility] [place] [facility] [address] [id number] [place] [address]- 6185 Feb, [facility] [place] [facility] [address] [id number] [place] [address]- 4[address] Feb, [facility] [place] [facility] [address] [id number] [place] [address]- 5696 Feb, [facility] [place] [facility] [address] [id number] [place] [address]- 7038 Feb, [facility] [place] [facility] [address] [id number] [place] [address]- 2076 Feb, [facility] [place] [facility] [address] [id number] [place] [address]- 4224 Feb, [facility] [place] [facility] [address] [id number] [place] [address] 8144 Feb, [facility] [place] [facility] [address] [id number] [place] [address]- 9073 Feb, [facility] [place] [facility] [address] [id number] [place] [address]- 9559 Feb, [facility] [place] [facility] [address] [id number] [place] [address]- 0754 Jan, [facility] [place] [facility] [address] [id number] [place] [address] Jan, [facility] [place] [facility] [address] [id number] [place] [address]- 3424 Jan, [facility] [place] [facility] [address] [id number] [place] [address]- 9699 Jan, [facility] [place] [facility] [address] [id number] [place] [address] Jan, [facility] [place] [facility] [address] [id number] [place] [address]- 4286 Jan, [facility] [place] [facility] [address] [id number] [place] [address]- 3976 Jan, [facility] [place] [facility] [address] [id number] [place] [address]- 5671 Jan, [facility] [place] [facility] [address] [id number], [place] [address]- [address] Jan, [facility] [place] [facility] [address] [id number], [place] [address] 8095 Jan, [facility] [place] [facility] [address] [id number], [place] [address]10 15 Jan, 2012 [facility] [place] [facility] [address] [id number] [place] [address]- 0573 Jan, [facility] [place] [facility] [address] [id number], [place] [address] Dec, [facility] [place] [facility] [address] [id number] [place] [address]- 2098 Dec, [facility] [place] [facility] [address] [id number] [place] [address]- 2348 24 Sep, 2011 [facility] [place] [facility] [address] [id number] [place] [address]- 3136 23 Sep, 2011 [facility] [place] [facility] [address] [id number] [place] [address]- 2616 22 Sep, 2011 [facility] [place] [facility] [address] [id number] [place] [address] 2546 21 Sep, 2011 [facility] [place] [facility] [address] [id number] [place] [address] 2546 20 Sep, 2011 [facility] [place] [facility] [address] [id number] [place] [address]- 5296 20 Sep, 2011 [facility] [place] [facility] [address] [id number] [place] [address]- 6256 07 Sep, 2011 [facility] [place] [facility] [address] [id number] [place] [address]- 1904 06 Sep, 2011 [facility] [place] [facility] [address] [id number] [place] [address]- 0597 06 Sep, 2011 [facility] [place] [facility] [address] [id number] [place] [address]- 4281 05 Sep, 2011 [facility] [place] [facility] [address] [id number] [place] [address]- 6681 23 Nov, 2011 [facility] [place] [facility] [address] [id number] [place] [address]- 7367 17 Nov, 2011 [facility] [place] [facility] [address] [id number] [place] [address]- 2546 13 Nov, 2011 [facility] [place] [facility] [address] [id number] [place] [address]- 0608 10 Nov, 2011 [facility] [place] [facility] [address] [id number] [place] [address]- 2556 08 Nov, 2011 [facility] [place] [facility] [address] [id number] [place] [address]- 7345 07 Nov, 2011 [facility] [place] [facility] [address] [id number] [place] [address]- 5386 Nov, [facility] [place] [facility] [address] [id number] [place] [address]- 4056 Nov, [facility] [place] [facility] [address] [id number] [place] [address]- 6526 Oct, [facility] [place] [facility] [address] [id number] [place] [address]- 9306 Oct, [facility] [place] [facility] [address] [id number] [place] [address]- 3920 Oct, [facility] [place] [facility] [address] [id number] [place] [address]- 0776 Oct, [facility] [place] [facility] [address] [id number] [place] [address]- 7160 Oct, [facility] [place] [facility] [address] [id number] [place] [address]- 4484 Oct, [facility] [place] [facility] [address] [id number] [place] [address]- 8686 Oct, [facility] [place] [facility] [address] [id number] [place] [address]- 8883 Sep, [facility] [place] [facility] [address] [id number] [place] [address]- 8106 Sep, [facility] [place] [facility] [address] [id number] [place] [address]- 6186 August, [facility] [place] [facility] [address] [id number] [place] [address]- 9556 August, [facility] [place] [facility] [address] [id number] [place] [address]- 0146 August, [facility] [place] [facility] [address] [id number] [place] [address]- 2546 August, [facility] [place] [facility] [address] [id number] [place] [address]- 0041 Jul, [facility] [place] [facility] [address] [id number] [place] [address]- 5312 Jul, [facility] [place] [facility] [address] [id number] [place] [address]- 9518 Jul, [facility] [place] [facility] [address] [id number] [place] [address]- 4949 Jul, [facility] [place] [facility] [address] [id number] [place] [address]- 0601 Jul, [facility] [place] [facility] [address] [id number] [place] [address]- 6491 Jul, [facility] [place] [facility] [address] [id number] [place] [address]- 3007 Jul, [facility] [place] [facility] [address] [id number] [place] [address]- 0213 Jul, [facility] [place] [facility] [address] [id number] [place] [address]- 5622 Jul, [facility] [place] [facility] [address] [id number] [place] [address]- 9114 Jun, [facility] [place] [facility] [address] [id number] [place] [address]- 9512 Jun, [facility] [place] [facility] [address] [id number], [place] [address]- 9136 15 Jun, 2011 [facility] [place] [facility] [address] [id number], [place] [address]- 0074 14 Jun, 2011 [facility] [place] [facility] [address] [id number] [place] [address]- 1350 12 Jun, 2011 [facility] [place] [facility] [address] [id number] [place] [address]- 9355 Jun, [facility] [place] [facility] [address] [id number] [place] [address]- 4601 Jun, [facility] [place] [facility] [address] [id number] [place] [address]- 2556 May, [facility] [address] [id number] [place] [address]- 0006 May, [facility] [place] [facility] [address] [id number] [place] [address]- 2546 16 May, 2011 [facility] [address] [id number] [place] [address] 2546 May, [facility] [place] [facility] [address] [id number] [place] [address]- 2546 May, [facility] [address] [id number] [place] [address]- 5596 Apr, [facility] [address] [id number] [place] [address] 2546 Apr, [facility] [address] [id number] [place] [address] 2546 Apr, [facility] [address] [id number] [place] [address]- 6392 Apr, [facility] [address] [id number] [place] [address]- 2263 Apr, [facility] [address] [id number] [place] [address]- 4319 Mar, [facility] [address] [id number] [place] [address] 2546 Mar, [facility] [address] [id number] [place] [address] 2546 Mar, [facility] [place] [facility] [address] [id number] [place] [address] 2546 Mar, [facility] [place] [facility] [address] [id number] [place] [address]- 2546 Mar, [facility] [place] [facility] [address] [id number] [place] [address]- 1710 Mar, [facility] [place] [facility] [address] [id number] [place] [address]- 8382 Mar, [facility] [place] [facility] [address] [id number] [place] [address]- 1982 Feb, [facility] [place] [facility] [address] [id number] [place] [address]- 7473 Feb, [facility] [place] [facility] [address] [id number] [place] [address]- 0691 Feb, [facility] [place] [facility] [address] [id number] [place] [address]- 0751 Feb, [facility] [place] [facility] [address] [id number] [place] [address]- 0428 Jan, [facility] [place] [facility] [address] [id number] [place] [address]- 5031 Jan, [facility] [place] [facility] [address] [id number] [place] [address]- 3323 Jan, [facility] [place] [facility] [address] [id number] [place] [address]- 7952 Jan, [facility] [place] [facility] [address] [id number] [place] [address]- 9964 Nov, [facility] [place] [facility] [address] [id number] [place] [address]- 4654 Mar, [facility] [place] [facility] [address] [id number] [place] [address]- 0085 Mar, [facility] [place] [facility] [address] [id number] [place] [address]- 5854 Mar, [facility] [place] [facility] [address] [id number] [place] [address]- 3910 Mar, [facility] [place] [facility] [address] [id number] [place] [address]- 3143 Mar, [facility] [place] [facility] [address] [facility] [id number] [place] [address]- 9376 Mar, [facility] [address] [id number] [address] 2447 Feb, [facility] [address] [id number], [place] [address]- 1680 Feb, [facility] [address] [id number], [place] [address]- 5957 Jan, [facility] [address] [id number] [address] Jan, [facility] [address] [id number] [address]406 Jan, IMMUNIZATIONS No Known Immunizations SOCIAL HISTORY Never Assessed REASON FOR VISIT Test results PLAN OF CARE VITAL SIGNS MEDICATIONS Unknown [...] 2020 & 2007 Surgical History Bladder surgery [facility] 03/2016 Surgical History Neurotransmitter placed 10/2017 Surgical History retninal repair 12/31/2017 Hospitalization History Surgeries Only Hospitalization History 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
--- OUTSIDE RECORDS SUMMARY | 2018-05-29 07:31 | XMS REPORT ---
Author Author ZHANE BOSCH [facility] Address [address] [place] [address] Care Team Providers Care Tobacco Roller Name Role Phone ZHANE BOSCH Unavailable PROBLEMS Type Condition ICD9-CM Code KWB42-HM Code Onset Dates Condition Status SNOMED Code Problem Generalized anxiety disorder F41.1 Active 79039784 Problem Low back pain M54.5 Active 145473553 Problem Coronary artery disease involving [place] coronary artery of [place] heart, angina presence unspecified I25.10 Active 2926692072046 Problem Dysthymic 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 Active 94377402 Problem Restless leg G25.81 Active 87696537 Problem Hypothyroid E03.9 Active 29994897 Problem Insomnia G47.00 Active 149929449 Problem Asthma J45.909 Active 459636479 Problem Palpitations R00.2 Active 38595757 Problem Anemia in chronic kidney disease D63.1 Active 733243003824605 Problem Depressed F32.9 Active 73932303 Problem Bipolar disorder, current episode manic without psychotic features F31.10 Active 823083542 Problem Chronic kidney disease, stage 4 (severe) N18.4 Active 895112545 Problem Degenerative tear of medial meniscus of left knee M23.204 Active 713730085 Problem Mood disorder F39 Active 97894973 Problem Primary osteoarthritis of left knee M17.12 Active 607337956 Problem Perimenopausal vasomotor symptoms N95.1 Active 396170061 Problem Chronic pain syndrome G89.4 Active 719047709 Problem Asthma with acute exacerbation in adult J45.901 Active 815320588 Problem History of colon polyps Z86.010 Active 875159998 Problem Functional 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 Active 42146525 Problem Body mass index (BMI) of 40.0-44.9 in adult Z68.41 Active 239300758 Problem Stage 3 chronic kidney disease N18.3 Active 635100170 Problem Restless leg syndrome G25.81 Active 82686950 Problem Seasonal allergic rhinitis due to pollen J30.1 Active 76126831 Problem Long-term use of high-risk medication Z79.899 Active 818822549 Problem Hypokalemia E87.6 Active 60929243 Problem Abnormal chest CT R93.8 Active 551308784 Problem Fibromyalgia M79.7 Active 166870072 Problem History of anemia Z86.2 Active 066244172 Problem Other seasonal allergic rhinitis J30.2 Active 250851801 Problem Essential (primary) hypertension I10 Active 57778609 Problem Chronic kidney disease, unspecified N18.9 Active 737520025 Problem Mixed stress and urge urinary incontinence N39.46 Active 157530995 Problem Vitamin D deficiency E55.9 Active 91883047 ALLERGIES No Information ENCOUNTERS Encounter Location Date Diagnosis [place] [address] [address] Mar, [place] [address] 48648- 7346 Feb, [place] [address] 5[address]19- 2237 Feb, [facility] [address] 24324- 9242 Feb, Fibromyalgia M79.7 [place] [address] 54586- 0542 08 Feb, 2018 Complicated UTI (urinary tract infection) N39.0 [facility] [address] 79116- 8015 Feb, [facility] [address] 73210- 6213 Jan, Generalized anxiety disorder F41.1 and Major depressive disorder, recurrent episode with anxious distress F33.9 [facility] [address] 39[address] Jan, Acute conjunctivitis of left eye, unspecified acute conjunctivitis type H10.32 [facility] [address] 51856- 5130 Jan, [facility] [address] [place] [id number] [place] [address] 03649- 1167 Jan, Acute non-recurrent maxillary sinusitis J01.00 ; Dysuria R30.0 ; Perimenopausal vasomotor symptoms N95.1 and Fibromyalgia M79.7 [facility] [address] [place] [id number] [place] [address] 86453- 6405 Dec, Vitamin D deficiency E55.9 [facility] [address] 60423- 8025 Dec, Vitamin D deficiency E55.9 [facility] [address] 10514- 4031 Dec, Vitamin D deficiency E55.9 [facility] [address] 58812- 8267 Dec, [facility] [address] 35535- 3616 Dec, Fibromyalgia M79.7 [facility] [address] 86820- 2570 Nov, [facility] [address] 38762- 5204 Nov, [facility] [address] [place] [id number] [place] [address] 64365- 8869 Nov, [facility] [address] [place] [id number] [place] [address] 27390- 0437 Nov, Fibromyalgia M79.7 ; Vision changes H53.9 ; Chest wall pain R07.89 and Chronic pain syndrome G89.4 [facility] [address] 38503- 9199 Nov, [facility] [address] [place] [id number] [place] [address] 04876- 7282 Nov, Rash of hands R21 [facility] [address] [place] [address]- 5253 Nov, Generalized anxiety disorder F41.1 and Major depressive disorder, recurrent episode with anxious distress F33.9 [place] [address] [place] [id number] [place] [address] 23990- 2431 Nov, Fibromyalgia M79.7 [facility] [address] [place] [id number] [place] [address] 65347- 7498 Nov, Complicated UTI (urinary tract infection) N39.0 [facility] [address] 78074- 7571 Oct, [place] [address] 39285- 0299 Oct, Generalized anxiety disorder F41.1 and Major depressive disorder, recurrent episode with anxious distress F33.9 [place] [address] [place] [id number] [place] [address] 34462- 7388 Oct, [place] [address] 83892- 9013 Oct, Fibromyalgia M79.7 [place] [address] 44597- 5352 Sep, Restless leg syndrome G25.81 and Restless leg G25.81 [place] [address] [place] [id number] [place] [address] 95932- 5693 Sep, [place] [address] [place] [id number] [place] [address] 14085- 4073 Sep, Seasonal allergic rhinitis due to pollen J30.1 ; Screening for breast cancer Z12.31 ; Chest pain at rest R07.9 ; Restless leg syndrome G25.81 ; Essential (primary) hypertension I10 and Depressed F32.9 [facility] [address] [place] [id number] [place] [address] 28067- 2991 August, Fibromyalgia M79.7 [facility] [address] 13488- 6684 August, [place] [address] [place] [id number] [address] 1025 August, [place] [address] [place] [id number] [place] [address] 67318- [address] August, [address] R93.8 [place] [address] [place] [id number] [place] [address] 94381- 0639 August, Generalized anxiety disorder F41.1 and Major depressive disorder, recurrent episode with anxious distress F33.9 [place] [address] [place] [id number] [place] [address] 23337- 7185 August, [address] R93.8 [place] [address] [place] [id number] [place] [address] 87482- 5583 Jul, [place] [address] [place] [id number] [place] [address] 85704- 1503 Jul, Chronic kidney disease, stage 4 (severe) N18.4 [place] [address] [place] [id number] [place] [address] 18427- 6930 Jul, [place] [address] [place] [id number] [place] [address] 81649- 7632 Jul, Restless leg G25.81 ; Mixed stress and urge urinary incontinence N39.46 and Fibromyalgia M79.7 [place] [address] [place] [id number] [place] [address] 77500- 5954 Jul, Chronic kidney disease, stage 4 (severe) N18.4 [place] [address] [place] [id number] [place] [address] 49678- 7534 Jun, Orthostatic hypotension I95.1 ; Chronic kidney disease, stage 4 (severe) N18.4 ; Chest wall discomfort R07.89 and Body mass index (BMI) of 40.0-44.9 in adult Z68.41 [place] [address] [place] [id number] [place] [address] 13451- 2967 Jun, [place] [address] [place] [id number] [place] [address] 57951- 3787 Jun, Orthostatic hypotension I95.1 [facility] [address] [place] [id number] [place] [address] 81029- 8058 Jun, [facility] [address] [place] [id number] [place] [address] 37906 -5477 Jun, Orthostatic hypotension I95.1 ; Dysuria R30.0 and Acute cystitis without hematuria N30.00 [facility] [address] [place] [id number] [place] [address] 87260- 5748 Jun, [facility] [address] [place] [id number] [place] [address] 49199- 6649 Jun, Chronic kidney disease, stage 4 (severe) N18.4 [place] [address] [place] [id number] [place] [address] 96619- 3492 Jun, Fibromyalgia M79.7 [facility] [address] [place] [id number] [place] [address] 70911- 2469 Jun, [facility] [address] [place] [id number] [place] [address] 48396- 7849 Jun, [facility] [address] [place] [id number] [place] [address] 39040- [address] May, [address] R93.8 and Stage 3 chronic kidney disease N18.3 [facility] [address] [place] [id number] [place] [address] 75967- 6072 May, Chronic kidney disease, stage 4 (severe) N18.4 [facility] [address] [place] [address] 54314- 0702 May, Chronic kidney disease, stage 4 (severe) N18.4 [facility] [address] [place] [id number] [place] [address] 78200- 76[address] May, [address] R93.8 [facility] [address] [place] [id number] [place] [address] 76014- 5708 May, [facility] [address] [address]- 3882 May, [facility] [address] [place] [address] 86122- 4802 May, Generalized anxiety disorder F41.1 and Major depressive disorder, recurrent episode with anxious distress F33.9 [facility] [address] [place] [address] 41980- 1920 May, Mood disorder F39 [facility] [address] [place] [address] 21505- 3134 Apr, [facility] [address] [place] [address] 43851- 3463 Apr, Infected skin lesion L08.9 and Muscle strain of right shoulder region, initial encounter S46.911A [facility] [address] [place] [address] 20657- 6103 Apr, Generalized anxiety disorder F41.1 and Major depressive disorder, recurrent episode with anxious distress F33.9 [facility] [address] [place] [address] 12286- 4568 Apr, [facility] [address] [place] [address] 84080- 6714 Apr, Recent urinary tract infection Z87.440 and Hypothyroid E03.9 [facility] [address] [place] [address] 08093- 1644 Apr, Generalized anxiety disorder F41.1 and Major depressive disorder, recurrent episode with anxious distress F33.9 [facility] [address] [place] [address] 69985- 1626 Apr, Recent urinary tract infection Z87.440 [facility] [address] [place] [address] 54383- 6926 Mar, [facility] [address] [place] [address] 47981 -3373 Mar, Dysuria R30.0 ; Acute cystitis without hematuria N30.00 and BMI 40.0-44.9, adult Z68.41 [place] [address] [place] [address] 29006- 9616 14 Mar, 2017 [place] [address] [place] [id number] [place] [address] 45159- 3989 Mar, [place] [address] [place] [id number] [place] [address] 67694- 5458 Mar, Generalized anxiety disorder F41.1 and Major depressive disorder, recurrent episode with anxious distress F33.9 [place] [address] [place] [id number] [place] [address] 91348- 2179 Feb, Conjunctivitis, bacterial H10.9 [place] [address] [place] [id number] [place] [address] 07099- 9046 Feb, [facility] [address] [place] [id number] [place] [address] 34628 -1935 Feb, Conjunctivitis, bacterial H10.9 [place] [address] [place] [id number] [place] [address] 44212- 1469 Feb, [facility] [address] [place] [address] 24785 -7386 Feb, Dysuria R30.0 ; Acute cystitis N30.00 and BMI 40.0-44.9, adult Z68.41 [place] [address] [place] [address] 81598- 8777 Feb, [place] [address] [place] [id number] [place] [address] 18686- 4084 Feb, Generalized anxiety disorder F41.1 and Major depressive disorder, recurrent episode with anxious distress F33.9 [place] [address] [place] [address] 91516- 2990 Feb, Mood disorder F39 and BMI 40.0-44.9, adult Z68.41 [facility] [address] [address]- 6070 Jan, [facility] [address] [place] [id number] [place] [address] 23992- 1400 Jan, [facility] [address] [place] [id number] [place] [address] 96346- 2555 Jan, Hypothyroid E03.9 [place] [address] [place] [id number] [place] [address] 11099- 7201 Jan, [place] [address] [place] [id number] [place] [address] 50877- 0827 Jan, Chronic kidney disease, unspecified N18.9 ; Hypokalemia E87.6 ; Essential (primary) hypertension I10 ; Fibromyalgia M79.7 ; Coronary artery disease involving [place] coronary artery of [place] heart, angina presence unspecified I25.10 ; Hypothyroid E03.9 and Encounter for immunization Z23 [place] [address] [place] [id number] [place] [address] 85892- 9433 Jan, Hypothyroid E03.9 [place] [address] [place] [id number] [place] [address] 11470- 2051 Jan, [place] [address] [place] [id number] [place] [address] 11806- 2421 Dec, Vitamin D deficiency E55.9 [place] [address] [place] [id number] [place] [address] 46281- 2079 28 Dec, 2016 Primary osteoarthritis of left knee M17.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 [place] [address] [place] [id number] [place] [address] 77445- 1669 19 Dec, 2016 Fibromyalgia M79.7 [facility] [address] [place] [id number] [place] [address] 81662- 7052 18 Dec, 2016 Mood disorder F39 [place] [address] [place] [id number] [place] [address] 44304- 9349 13 Dec, 2016 [facility] [address] [address]- 9683 13 Dec, 2016 Generalized anxiety disorder F41.1 and Major depressive disorder, recurrent episode with anxious distress F33.9 [facility] [address] [address]- 8082 11 Dec, 2016 [facility] [address] [address]- 2983 08 Dec, 2016 Streptococcal meningitis G00.2 [facility] [address] [address]- 5566 07 Dec, 2016 Streptococcal meningitis G00.2 [facility] [address] [place] [address] 87778- 5436 07 Dec, 2016 [facility] [address] [address]- 2361 06 Dec, 2016 Streptococcal meningitis G00.2 [facility] [address] [address]- 9206 06 Dec, 2016 [facility] [address] [place] [address] 62219- 4817 06 Dec, 2016 Major depressive disorder, recurrent episode with anxious distress F33.9 [facility] [address] [address]- 0778 Nov, Fever, unspecified fever cause R50.9 [facility] [address], [place] [address]- 6137 24 Nov, 2016 [facility] [address] [place] [address] 27795- 1019 16 Nov, 2016 Hypothyroid E03.9 [facility] [address] [address]- 5191 10 Nov, 2016 Generalized anxiety disorder F41.1 and Major depressive disorder, recurrent episode with anxious distress F33.9 [facility] [address] [place] [address] 74967- 2765 Nov, [facility] [id number] [id number] Oct, Dental examination Z01.20 [facility] [address] [place] [address] 37869- 2063 Oct, Generalized anxiety disorder F41.1 and Major depressive disorder, recurrent episode with anxious distress F33.9 [facility] [address] [place] [id number] [place] [address] 93751- 4248 Oct, Chronic kidney disease, stage 4 (severe) N18.4 [facility] [address] [place] [id number] [place] [address] 88731- 5123 Oct, [facility] [address] [place] [address] 18654- 9138 Oct, Fibromyalgia M79.7 [facility] [address] [place] [id number] [place] [address] 68130- 2182 Oct, [facility] [address] [place] [address] 56255- 3004 Oct, Generalized anxiety disorder F41.1 ; Major depressive disorder, recurrent episode with anxious distress F33.9 and Bipolar disorder, current episode manic without psychotic features F31.10 [facility] [address], [place] [address]- 9403 Sep, [facility] [address] [address]- 1987 Sep, [facility] [address] [place] [address] 20390- 8020 Sep, Vitamin D deficiency E55.9 [facility] [address], [place] [address]- 1886 14 Sep, 2016 Vitamin D deficiency E55.9 [facility] [address] [address]- 5686 Sep, [facility] [id number] [place] [address] 15716- 7833 Sep, Chronic kidney disease, stage 4 (severe) N18.4 ; Hypothyroid E03.9 ; Restless leg G25.81 ; Fibromyalgia M79.7 ; Essential ( primary) hypertension I10 ; Vitamin D deficiency E55.9 ; Dyspepsia R10.13 ; Anemia in chronic kidney disease D63.1 ; Chronic kidney disease, unspecified N18.9 ; Coronary artery disease involving [place] coronary artery of [place] heart , angina presence unspecified I25.10 ; Screening breast examination Z12.39 and Low back pain M54.5 [place] [id number] [place] [address] 65779- 9454 August, Generalized anxiety disorder F41.1 and Major depressive disorder, recurrent episode with anxious distress F33.9 [place] [id number] [place] [address] 98372- 5286 August, Generalized anxiety disorder F41.1 and Major depressive disorder, recurrent episode with anxious distress F33.9 [place] [id number] [place] [address] 80585- 7684 August, Fibromyalgia M79.7 [place] [id number] [place] [address] 06228- 2581 Jul, Generalized anxiety disorder F41.1 and Major depressive disorder, recurrent episode with anxious distress F33.9 [place] [id number] [place] [address] 94081- 6049 Jul, Fibromyalgia M79.7 [place] [id number] [place] [address] 87320- 8099 Jul, Generalized anxiety disorder F41.1 [place] [id number] [place] [address] 41465- 0326 May, [place] [id number] [place] [address] 62152- 4016 May, Hypothyroid E03.9 [place] [id number] [place] [address] 17990- 9683 08 May, 2016 Chronic kidney disease, stage 4 (severe) N18.4 ; Hypothyroid E03.9 ; Restless leg G25.81 ; Fibromyalgia M79.7 ; Essential ( primary) hypertension I10 ; Vitamin D deficiency E55.9 ; Dyspepsia R10.13 ; Acute non-recurrent maxillary sinusitis J01.00 ; Anemia in chronic kidney disease D63.1 ; Chronic kidney disease, unspecified N18.9 and Coronary artery disease involving [place] coronary artery of [place] heart, angina presence unspecified I25.10 [place] [id number] [place] [address] 42790- 0294 May, Vitamin D deficiency, unspecified E55.9 [place] [id number] [place] [address] 60786- 6492 May, Generalized anxiety disorder F41.1 and Major depressive disorder, recurrent episode with anxious distress F33.9 [place] [id number] [place] [address] 74073- 9327 Apr, Pain in right knee M25.561 and Pain in left knee M25.562 [place] [id number] [place] [address] 47255- 4357 Apr, [place] [id number] [place] [address] 21270- 1508 Apr, [place] [id number] [place] [address] 34763- 6657 Apr, [place] [id number] [place] [address] 45224- 8549 Mar, Generalized anxiety disorder F41.1 and Major depressive disorder, recurrent episode with anxious distress F33.9 [place] [id number] [place] [address] 43447- 2706 Mar, Generalized anxiety disorder F41.1 and Major depressive disorder, recurrent episode with anxious distress F33.9 [place] [address] [id number] [place] [address] [id number]- 1006 Mar, [facility] [id number] [place] [address] 54040- 3814 Mar, [facility] [id number] [place] [address] 37277- 3323 Mar, [facility] [id number] [place] [address] 65734- 9969 Mar, Asthma J45.909 and Fibromyalgia M79.7 [place] [address] 17559- 2824 Mar, Chronic kidney disease, stage 4 (severe) N18.4 ; Vitamin D deficiency E55.9 and Essential (primary) hypertension I10 [place] [address] 85153- 2490 Feb, [place] [address] 95661- 5062 Feb, Dysuria R30.0 ; Mixed stress and urge urinary incontinence N39.46 ; Fibromyalgia M79.7 and Chronic kidney disease, stage IV (severe) N18.4 [place] [address] 19597- 0810 Feb, Chronic kidney disease, stage 4 (severe) N18.4 [place] [address] [id number] [place] [address] 17505- 2139 Feb, Chronic kidney disease, stage 4 (severe) N18.4 [place] [address] [id number] [place] [address] 86979- 7786 Feb, [place] [address] [address] [address]- [address] Feb, Vitamin D deficiency, unspecified E55.9 [facility] [id number] [place] [address] 77236- 0953 Jan, [facility] [address] 41336- 7049 Jan, [facility] [address] [address] 5[address] Dec, [facility] [id number] [place] [address] 28504- 0271 Dec, Chronic kidney disease, stage 4 (severe) N18.4 [facility] [id number] [place] [address] 29712- 4585 Dec, Dysthymic 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 and Generalized anxiety disorder F41.1 [facility] [id number] [place] [address] 59151- 7549 Dec, [facility] [id number] [place] [address] 09182- 5111 Dec, [facility] [id number] [place] [address] 38490- 8648 Dec, Dysthymic 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 and Generalized anxiety disorder F41.1 [facility] [id number] [place] [address] 21453- 8080 Dec, Dysuria R30.0 ; Chronic kidney disease, stage 4 (severe) N18.4 ; Hypertension I10 ; Dyspepsia R10.13 ; Yeast dermatitis B37.2 ; Palpitations R00.2 ; Hypothyroid E03.9 ; Functional 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 and Other seasonal allergic rhinitis J30.2 [facility] [id number] [place] [address] 26402 -2056 Dec, [facility] [id number] [place] [address] 88725 -5655 Nov, Dysuria R30.0 and Stress incontinence N39.3 [facility] [id number] [place] [address] 80279- 5391 Nov, [facility] [id number] [place] [address] 57590- 2681 Nov, [facility] [id number] [place] [address] 25997- 3182 Nov, Osteoarthritis of knees, bilateral M17.0 [facility] [address] 15978- 2121 Nov, Dysthymic 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 and Generalized anxiety disorder F41.1 [facility] [address] 59949- 9963 Nov, [facility] [address] 20982- 2047 Nov, [facility] [id number] [place] [address] 69387- 2847 Nov, Urgency of urination R39.15 [facility] [address] 31655- 7340 Nov, [facility] [address] 61062- 2523 Nov, Chronic kidney disease, stage 4 (severe) N18.4 [facility] [id number] [place] [address] 56299- 6163 Oct, Hypertension I10 ; Coronary artery disease involving [place] coronary artery of [place] heart, angina presence unspecified I25.10 ; Palpitations R00.2 ; Hypothyroid E03.9 ; Right foot pain M79.671 ; Functional 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 and Other seasonal allergic rhinitis J30.2 [facility] [id number] [place] [address] 78134- 2976 Oct, Dysthymic 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 and Generalized anxiety disorder F41.1 [facility] [id number] [place] [address] 50082- 5121 Sep, [facility] [address] 27817- 4108 Sep, [facility] [id number] [place] [address] 06677- 7776 Sep, [facility] [id number] [place] [address] 88353- 8458 30 Sep, 2015 [facility] [address] 71631- 1617 Sep, [facility] [id number] [place] [address] 11318- 0090 Sep, Dysthymic 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 and Generalized anxiety disorder F41.[address] 41145- 9021 16 Sep, 2015 Asthma with acute exacerbation in adult J45.901 ; Dysuria R30.0 ; Chronic kidney disease, stage 4 (severe) N18.4 and History of anemia Z86.[address] 80994- 8746 2015 Generalized anxiety disorder F41.1 and Dysthymic 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 89494- 2366 August, Screening breast examination Z12.39 and Acute recurrent maxillary sinusitis J01.01 [place] [id number] [place] [address] 66600- 0078 August, Osteoarthritis of knees, bilateral M17.0 [place] [id number] [place] [address] 68627- 0169 August, Chronic kidney disease, stage 4 (severe) N18.4 ; Acute non- recurrent maxillary sinusitis J01.00 ; Urinary problem R39.89 ; Bowel habit changes R19.4 ; Functional 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 and History of colon polyps Z86.010 [facility] [id number] [place] [address] 45843- 2284 Jul, Dysthymic 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 and Generalized anxiety disorder F41.1 [facility] [place] [id number] [place] [address] 69775- 2530 Jul, [facility] [id number] [place] [address] 50169- 4743 Jul, Dysthymic 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 ; Generalized anxiety disorder F41.1 and 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 [facility] [id number] [place] [address] 63433- 0454 Jul, [facility] [id number] [place] [address] 12583- 4274 Jun, [facility] [id number] [place] [address] 17369- 9635 Jun, [facility] [place] [id number] [place] [address] 89446- 3342 May, [facility] [id number] [place] [address] 97289- 2671 May, Dysthymic 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 and Generalized anxiety disorder F41.1 [facility] [id number] [place] [address] 29375- 5316 Apr, Kidney disease N28.9 [facility] [id number] [place] [address] 82957- 1810 Apr, Generalized anxiety disorder F41.1 and Dysthymic 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 [facility] [id number] [place] [address] 11522- 9757 Apr, Chronic kidney disease, stage 4 (severe) N18.4 [facility] [id number] [place] [address] 94298- 7322 Apr, Generalized anxiety disorder F41.1 ; Major depression, recurrent F33.9 and Sleep disturbance G47.9 [facility] [id number] [place] [address] 38347- 4544 Mar, Generalized anxiety disorder F41.1 and Dysthymic 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 [facility] [id number] [place] [address] 40458- 9027 Mar, Generalized anxiety disorder F41.1 ; Dysthymic 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 and Insomnia G47.00 [facility] [id number] [place] [address] 77627- 1008 Mar, [facility] [id number] [place] [address] 47560- 5177 Mar, [facility] [id number] [place] [address] 78524- 9111 Mar, Osteoarthritis of knees, bilateral M17.0 [facility] [address] 51806- 7669 Mar, Hypertension I10 ; Hypothyroid E03.9 ; Dysthymic 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 ; Chronic kidney disease, stage 4 (severe) N18.4 and Nausea & vomiting R11.2 [facility] [place] [id number] [place] [address] 41737- 5192 Mar, Generalized anxiety disorder F41.1 ; Dysthymic 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 and Insomnia G47.00 [facility] [id number] [place] [address] 98993- 4352 Mar, Dehydration E86.0 ; Chronic kidney disease, stage 4 (severe ) N18.4 and Nausea & vomiting R11.2 [facility] [id number] [place] [address] 23392 -4595 08 Mar, 2015 Gastroenteritis K52.9 [facility] [id number] [place] [address] 88474- 6238 Mar, [facility] [id number] [place] [address] 50740- 4152 Mar, [facility] [id number] [place] [address] 82646- 5728 Feb, Dysthymic 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 and Generalized anxiety disorder F41.1 [facility] [id number] [place] [address] 42387- 5561 Jan, UTI (urinary tract infection) N39.0 ; Asthma J45.909 ; Coronary artery disease involving [place] coronary artery of [place] heart, angina presence unspecified I25.10 ; Hypertension I10 ; Hypothyroid E03.9 ; Vitamin D deficiency E55.9 ; Insomnia G47.00 ; Palpitations R00.2 ; Depressed F32.9 ; Restless leg G25.81 and Anxiety F41.9 [facility] [id number] [place] [address] 66382- 4621 Jan, Dysthymic 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 and Generalized anxiety disorder F41.1 [facility] [address] 85301- 8699 Jan, [facility] [facility] [address] 74113- 9381 Dec, [facility] [address] 83286- 6290 Dec, Alkalosis 276.3 ; Chronic kidney disease, 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.4 ; Hyperpotassemia 276.7 ; Secondary hyperparathyroidism, renal 588.81 ; Proteinuria 791.0 ; Unspecified vitamin D deficiency 268.9 ; Anemia in chronic kidney disease 285.21 ; Other and unspecified hyperlipidemia 272.4 ; Hypertension, essential, benign 401.1 and Chronic kidney disease (CKD), stage III (moderate) 585.3 [facility] [id number] [place] [address] 28218- 9279 Dec, [facility] [place] [id number] [place] [address] 54114- 8823 Dec, Depressive disorder, not elsewhere classified 311 and Generalized anxiety disorder 300.02 [place] [id number] [place] [address] 70677- 4947 Dec, [facility] [address] 35689- 3261 Dec, [facility] [place] [id number] [place] [address] 80576- 5016 Nov, Depressive disorder, not elsewhere classified 311 and Generalized anxiety disorder 300.02 [facility] [id number] [place] [address] 79265- 1087 Nov, Arthritis of both knees 716.96 [place] [id number] [place] [address] 31043- 4569 Nov, PAF (paroxysmal atrial fibrillation) 427.31 ; CAD (coronary artery disease) 414.00 ; Chest pain 786.50 and Chronic kidney disease (CKD) stage G4/A1, severely decreased glomerular filtration rate (GFR) between 15-29 mL/min/1.73 square meter and albuminuria creatinine ratio less than 30 mg/g 585.[address] 35732- 4459 Oct, Coronary atherosclerosis of unspecified type of vessel, [place] or graft 414.00 ; Chronic kidney disease, 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.4 ; Hypertension 401.9 and Edema 782.[address] 06577- 2450 Oct, Depressive disorder, not elsewhere classified 311 and Generalized anxiety disorder 300.02 [place] [id number] [place] [address] 17115- 2043 Oct, Depressive disorder, not elsewhere classified 311 and Generalized anxiety disorder 300.02 [place] [id number] [place] [address] 35366- 6459 Oct, [place] [id number] [place] [address] 40638- 8469 Oct, [place] [id number] [place] [address] 32842- 0006 Sep, [place] [id number] [place] [address] 57151- 0667 Sep, Chronic kidney disease, 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.4 [place] [id number] [place] [address] 64653- 0040 Sep, [address] 58738- 4335 Sep, Coronary atherosclerosis of unspecified type of vessel, [place] or graft 414.00 ; Hypertension 401.9 ; Edema 782.3 and Hypothyroidism 244.9 [facility] [id number] [place] [address] 31794- 6619 Sep, Coronary atherosclerosis of unspecified type of vessel, [place] or graft 414.00 ; Hypertension 401.9 ; Fibromyalgia 729.1 ; Edema 782.3 ; Hypothyroidism 244.9 and Anemia 285.9 [facility] [address] 73715- 5370 Sep, Anxiety disorder, unspecified 300.00 and Depressive disorder , not elsewhere classified 311 [place] [address] 04175- 1078 Sep, [facility] [address] 53836- 2741 August, Generalized anxiety disorder 300.02 [facility] [address] 35552- 6900 August, Closed fracture of lateral malleolus 824.2 [place] [address] 95459- 3783 Jul, [facility] [id number] [place] [address] 80212- 6584 Jul, [facility] [id number] [place] [address] 24759- 9218 Jun, [facility] [id number] [place] [address] 01959- 1250 Jun, [facility] [id number] [place] [address] 33427- 6571 Jun, [facility] [id number] [place] [address] 40072- 5758 Jun, [facility] [id number] [place] [address] 45571- 5023 Jun, [facility] [place] [facility] [address] [id number] [place] [address]- 8353 Jun, [facility] [place] [facility] [address] [id number] [place] [address]- 3746 May, 2014 [facility] [place] [facility] [address] [id number] [place] [address]- 9751 May, 2014 [facility] [place] [facility] [address] [id number] [place] [address]- 9171 May, 2014 [facility] [place] [facility] [address] [id number] [place] [address]- 1832 May, 2014 [facility] [place] [facility] [address] [id number] [place] [address]- 2708 16 May, 2014 [facility] [place] [facility] [address] [id number] [place] [address]- 7212 16 May, 2014 [facility] [place] [facility] [address] [id number] [place] [address]- 4328 May, 2014 [facility] [place] [facility] [address] [id number] [place] [address]- 2212 13 May, 2014 [facility] [place] [facility] [address] [facility] [id number] [place] [address]- 3183 10 May, 2014 [facility] [place] [facility] [address] [id number] [place] [address]- 5247 May, [facility] [place] [facility] [address] [id number] [place] [address]- 8144 Apr, [facility] [place] [facility] [address] [id number] [place] [address]- 9772 Apr, [facility] [place] [facility] [address] [id number] [place] 3273 Mar, [facility] [place] [facility] [address] [facility] [id number] [place] [address]- 9398 Mar, [facility] [place] [facility] [address] [id number] [place] [address]- 7700 Mar, [facility] [place] [facility] [address] [id number] [place] [address]- 5355 Mar, [facility] [place] [facility] [address] [id number] [place] [address]- 4596 Mar, [facility] [place] [facility] [address] [id number] [place] [address]- 6805 Mar, [facility] [place] [facility] [address] [id number] [place] [address]- 6726 Mar, [facility] [place] [facility] [address] [id number] [place] [address]- 8567 Feb, [facility] [place] [facility] [address] [id number] [place] [address]- 1775 Feb, [facility] [place] [facility] [address] [id number] [place] [address]- 6434 Feb, [facility] [place] [facility] [address] [id number] [place] [address]- 3620 Jan, [facility] [place] [facility] [address] [id number] [place] [address]- 6830 Jan, [facility] [place] [facility] [address] [id number] [place] [address]- 9609 Jan, [facility] [place] [facility] [address] [id number] [place] [address]- 7337 Jan, [facility] [place] [facility] [address] [id number] [place] [address]- 6557 Jan, [facility] [place] [facility] [address] [id number] [place] [address]- 2580 Jan, [facility] [place] [facility] [address] [id number] [place] [address]- 1961 Jan, [facility] [place] [facility] [address] [id number] [place] [address]- 6865 Jan, [facility] [place] [facility] [address] [id number] [place] [address]- 5627 Jan, [facility] [place] [facility] [address] [id number] [place] [address]- 7464 Jan, [facility] [place] [facility] [address] [id number] [place] [address]- 2667 Nov, [facility] [place] [facility] [address] [id number] [place] [address]- 7260 Nov, [facility] [place] [facility] [address] [id number] [place] [address]- 1450 Nov, [facility] [place] [facility] [address] [id number] [place] [address]- 4698 Oct, [facility] [place] [facility] [address] [id number] [place] [address]- 4177 Oct, [facility] [place] [facility] [address] [id number] [place] [address]- 1595 Oct, [facility] [place] [facility] [address] [id number] [place] [address]- 7943 Oct, [facility] [place] [facility] [address] [id number] [place] [address]- 4276 Oct, [facility] [place] [facility] [address] [id number] [place] [address]- 5517 Oct, [facility] [place] [facility] [address] [id number] [place] [address]- 4972 Oct, [facility] [place] [facility] [address] [id number] [place] [address]- 8619 Oct, [facility] [place] [facility] [address] [id number] [place] [address]- 3305 Oct, [facility] [place] [facility] [address] [id number] [place] [address]- 5861 Sep, [facility] [place] [facility] [address] [id number] [place] [address]- 7251 Sep, [facility] [place] [facility] [address] [id number] [place] [address]- 0427 Sep, [facility] [place] [facility] [address] [id number] [place] [address]- 6606 Sep, [facility] [place] [facility] [address] [id number] [place] [address]- 3317 Sep, [facility] [place] [facility] [address] [id number] [place] [address]- 7787 Sep, [facility] [place] [facility] [address] [id number] [place] [address]- 8862 Sep, [facility] [place] [facility] [address] [id number] [place] [address]- 3084 Sep, [facility] [place] [facility] [address] [id number] [place] [address]- 9257 Sep, [facility] [place] [facility] [address] [id number] [place] [address]- 4654 August, [facility] [place] [facility] [address] [id number] [place] [address]- 2296 August, [facility] [place] [facility] [address] [facility] [id number] [place] [address]- 8784 August, [facility] [place] [facility] [address] [id number] [place] [address]- 2714 August, [facility] [place] [facility] [address] [id number] [place] [address]- 2853 August, [facility] [place] [facility] [address] [id number] [place] [address]- 1191 August, [facility] [place] [facility] [address] [id number] [place] [address]- 3024 Jul, [facility] [place] [facility] [address] [id number] [place] [address]- 0833 Jul, [facility] [place] [facility] [address] [id number] [place] [address]- 8472 08 Jul, 2013 [facility] [place] [facility] [address] [id number] [place] [address]- 7346 08 Jul, 2013 [facility] [place] [facility] [address] [id number] [place] [address]- 1864 Jul, [facility] [place] [facility] [address] [id number] [place] [address]- 5138 Jul, [facility] [place] [facility] [address] [id number] [place] [address]- 9983 Jun, [facility] [place] [facility] [address] [id number] [place] [address]- 1482 Jun, [facility] [place] [facility] [address] [id number] [place] [address]- 3258 May, [facility] [place] [facility] [address] [id number] [place] [address]- 7360 May, [facility] [place] [facility] [address] [id number] [place] [address]- 5052 May, [facility] [place] [facility] [address] [id number] [place] [address]- 2202 May, [facility] [place] [facility] [address] [id number] [place] [address]- 3054 Apr, [facility] [place] [facility] [address] [id number] [place] [address]- 2803 Apr, [facility] [place] [facility] [address] [id number] [place] [address]- 5328 Mar, [facility] [place] [facility] [address] [id number] [place] [address]- 7237 Mar, [facility] [place] [facility] [address] [id number] [place] [address]- 3174 17 Mar, 2013 [facility] [place] [facility] [address] [id number] [address]- 2716 Mar, [facility] [place] [facility] [address] [id number] [place] [address]- 3639 Mar, [facility] [place] [facility] [address] [id number] [place] [address] Mar, [facility] [place] [facility] [address] [id number] [place] [address] Feb, [facility] [place] [facility] [address] [id number], [place] [address] Feb, [facility] [place] [facility] [address] [id number] [place] [address] Feb, [facility] [place] [facility] [address] [id number] [place] [address] Feb, [facility] [place] [facility] [address] [id number], [place] [address] Feb, [facility] [place] [facility] [address] [id number], [place] [address] Feb, [facility] [place] [facility] [address] [id number], [place] [address] Jan, [facility] [place] [facility] [address] [id number], [place] [address] Jan, [facility] [place] [facility] [address] [id number], [place] [address] Jan, [facility] [place] [facility] [address] [id number], [place] [address] Jan, [facility] [place] [facility] [address] [id number], [place] [address] 08 Jan, 2013 [facility] [place] [facility] [address] [facility] [id number], [place] [address]- [address] Jan, [facility] [place] [facility] [address] [id number], [place] [address] Dec, [facility] [place] [facility] [address] [id number] [place] [address] Dec, [facility] [address] [id number] [place] [address] Nov, [facility] [address] [id number] [place] [address] Nov, [facility] [address] [id number] [place] [address] Oct, [facility] [address] [id number] [place] [address] Oct, [facility] [address] [id number] [place] [address] Oct, [facility] [address] [id number] [place] [address] Oct, [facility] [address] [id number] [place] [address] Oct, [facility] [address] [id number] [place] [address] Oct, [facility] [address] [id number] [place] [address]- [address] Sep, [facility] [address] [id number] [place] [address] Sep, [facility] [address] [id number] [place] [address] Sep, [facility] [address] [id number] [place] [address] Sep, [facility] [place] [facility] [address] [id number] [place] [address] August, [facility] [place] [facility] [address] [id number] [place] [address] August, [facility] [address] [id number] [place] [address] August, [facility] [address] [id number] [place] [address] August, [facility] [address] [id number] [place] [address] August, [facility] [address] [id number] [place] [address] Jul, [facility] [address] [id number] [place] [address] Jul, [facility] [address] [id number] [place] [address] Jul, [facility] [address] [id number] [place] [address] Jul, [facility] [address] [id number] [place] [address] Jul, [facility] [address] [id number] [place] [address] Jul, [facility] [address] [id number] [place] [address] Jul, [facility] [address] [id number], [place] [address]- 5835 Jul, [facility] [address] [id number] [place] [address] Jul, [facility] [address] [id number], [place] [address] Jul, [facility] [address] [id number] [place] [id number] Jun, [facility] [address] [id number] [place] [address] Jun, [facility] [address] [id number], [place] [address] Jun, [facility] [address] [id number], [place] [address] Jun, [facility] [address] [id number] [place] [address] Jun, [facility] [address] [id number] [place] [address] May, [facility] [address] [id number] [place] [address] May, [facility] [address] [id number] [place] [address] May, [facility] [address] [id number] [place] [address]169 Apr, [facility] [address] [id number] [place] [address] Apr, [facility] [address] [id number] [place] [address] Apr, [facility] [address] [id number] [place] [address]369 Apr, [facility] [address] [id number] [place] [address] 65[address] Apr, [facility] [address] [id number] [place] [address] Apr, [facility] [address] [id number] [place] [address] Mar, [facility] [place] [facility] [address] [id number] [place] [address] 0643 Mar, [facility] [place] [facility] [address] [id number] [place] [address] 7513 Mar, [facility] [place] [facility] [address] [id number] [place] [address]15 Mar, [facility] [place] [facility] [address] [id number] [place] [address]60 Feb, [facility] [place] [facility] [address] [id number] [place] [address] 7918 Feb, [facility] [place] [facility] [address] [id number] [place] [address] 1563 Feb, [facility] [place] [facility] [address] [id number] [place] [address] 8078 Feb, [facility] [place] [facility] [address] [id number] [place] [address] 47[address] Feb, [facility] [place] [facility] [address] [id number] [place] [address]- 5721 Feb, [facility] [place] [facility] [address] [id number] [place] [address] 06[address] Feb, [facility] [place] [facility] [address] [id number] [place] [address]- 4958 Feb, [facility] [place] [facility] [address] [id number] [place] [address] Feb, [facility] [place] [facility] [address] [id number] [place] [address] 6532 Feb, [facility] [place] [facility] [address] [id number] [place] [address] 35[address] Feb, [facility] [place] [facility] [address] [id number] [place] [address] Feb, [facility] [place] [facility] [address] [id number] [place] [address] Feb, [facility] [place] [facility] [address] [id number] [place] [address] Feb, [facility] [place] [facility] [address] [id number] [place] [address] Feb, [facility] [place] [facility] [address] [id number] [place] [address] 4349 Feb, [facility] [place] [facility] [address] [id number] [place] [address]277 Jan, [facility] [place] [facility] [address] [id number] [place] [address] 31 Jan, 2012 [facility] [place] [facility] [address] [id number] [place] [address] 31 Jan, 2012 [facility] [place] [facility] [address] [id number] [place] [address] 18[address] 31 Jan, 2012 [facility] [place] [facility] [address] [id number] [place] [address] 30 Jan, 2012 [facility] [place] [facility] [address] [id number] [place] [address] 3578 Jan, [facility] [place] [facility] [address] [id number] [place] [address]- 0[address] Jan, [facility] [place] [facility] [address] [id number] [place] [address]- 5815 16 Jan, 2012 [facility] [place] [facility] [address] [id number] [place] [address]- 5745 16 Jan, 2012 [facility] [place] [facility] [address] [id number] [place] [address] 9233 15 Jan, 2012 [facility] [place] [facility] [address] [id number], [place] [address] 15 Jan, 2012 [facility] [place] [facility] [address] [id number], [place] [address] Jan, [facility] [place] [facility] [address] [id number], [place] [address] 26 Dec, 2011 [facility] [place] [facility] [address] [id number] [place] [address] 3591 26 Dec, 2011 [facility] [place] [facility] [address] [id number] [place] [address] 24 Dec, 2011 [facility] [place] [facility] [address] [id number] [place] [address]- 2409 23 Dec, 2011 [facility] [place] [facility] [address] [id number] [place] [address]- 45[address] 22 Sep, 2011 [facility] [place] [facility] [address] [id number] [place] [address]- 4586 21 Sep, 2011 [facility] [place] [facility] [address] [id number] [place] [address]- 9846 20 Sep, 2011 [facility] [place] [facility] [address] [id number] [place] [address] 3236 20 Sep, 2011 [facility] [place] [facility] [address] [id number] [place] [address]- 2776 07 Sep, 2011 [facility] [place] [facility] [address] [id number] [place] [address]- 6776 06 Sep, 2011 [facility] [place] [facility] [address] [id number] [place] [address]- 9116 06 Sep, 2011 [facility] [place] [facility] [address] [id number] [place] [address]106 05 Sep, 2011 [facility] [place] [facility] [address] [id number] [place] [address]- 5764 23 Nov, 2011 [facility] [place] [facility] [address] [id number] [place] [address]- 3455 17 Nov, 2011 [facility] [place] [facility] [address] [id number] [place] [address]- 4673 13 Nov, 2011 [facility] [place] [facility] [address] [id number] [place] [address] 7341 10 Nov, 2011 [facility] [place] [facility] [address] [id number] [place] [address]- 2544 08 Nov, 2011 [facility] [place] [facility] [address] [id number] [place] [address]- 9143 Nov, 2011 [facility] [place] [facility] [address] [id number] [place] [address]- 9204 Nov, [facility] [place] [facility] [address] [id number] [place] [address]- 5450 Nov, [facility] [place] [facility] [address] [id number] [place] [address]- 5048 30 Oct, 2011 [facility] [place] [facility] [address] [id number] [place] [address]- 9086 Oct, [facility] [place] [facility] [address] [id number] [place] [address]- 7436 Oct, [facility] [place] [facility] [address] [id number] [place] [address]- 8626 Oct, [facility] [place] [facility] [address] [id number] [place] [address] 2546 Oct, [facility] [place] [facility] [address] [id number] [place] [address]- 0016 Oct, [facility] [place] [facility] [address] [id number] [place] [address]- 0991 Oct, [facility] [place] [facility] [address] [id number] [place] [address]- 1672 Sep, [facility] [place] [facility] [address] [id number] [place] [address]- 9990 Sep, [facility] [place] [facility] [address] [id number] [place] [address]- 8934 August, [facility] [place] [facility] [address] [id number] [place] [address]- 7816 August, [facility] [place] [facility] [address] [id number] [place] [address]- 2071 August, [facility] [place] [facility] [address] [id number] [place] [address]- 3386 August, [facility] [place] [facility] [address] [id number] [place] [address]- 7656 Jul, [facility] [place] [facility] [address] [id number] [place] [address]- 7576 Jul, [facility] [place] [facility] [address] [id number] [place] [address]- 4013 Jul, [facility] [place] [facility] [address] [id number] [place] [address]- 7197 Jul, [facility] [place] [facility] [address] [id number] [place] [address]- 3236 Jul, [facility] [place] [facility] [address] [facility] [id number] [place] [address]- 1908 Jul, [facility] [place] [facility] [address] [id number] [place] [address]- 3743 Jul, [facility] [place] [facility] [address] [id number] [place] [address]- 2297 Jul, [facility] [place] [facility] [address] [id number] [place] [address]- 2461 Jul, [facility] [place] [facility] [address] [id number] [place] [address]- 7460 Jun, [facility] [place] [facility] [address] [id number] [place] [address]- 2273 Jun, [facility] [place] [facility] [address] [id number] [place] [address]- 5570 15 Jun, 2011 [facility] [place] [facility] [address] [facility] [id number] [place] [address]- 4207 14 Jun, 2011 [facility] [place] [facility] [address] [id number], [place] [address]- [address]168 Jun, [facility] [place] [facility] [address] [id number], [place] [address]- [address]90 Jun, [facility] [place] [facility] [address] [id number] [place] [address]- 9564 Jun, [facility] [place] [facility] [address] [id number] [place] [address]- 5209 May, [facility] [place] [facility] [address] [id number] [place] [address]- 1304 May, [facility] [place] [facility] [address] [id number] [place] [address]- 0406 16 May, 2011 [facility] [address] [id number] [place] [address]- 6476 May, [facility] [address] [id number] [place] [address]- 2546 May, [facility] [address] [id number] [place] [address]- 8876 Apr, [facility] [address] [id number] [place] [address]- 2546 Apr, [facility] [address] [id number] [place] [address]- 2616 Apr, [facility] [address] [id number] [place] [address]- 8656 Apr, [facility] [address] [id number] [place] [address]- 8322 Apr, [facility] [address] [id number] [place] [address]- 0117 Mar, [facility] [address] [id number] [place] [address]- 4036 Mar, [facility] [address] [id number] [place] [address]- 1820 Mar, [facility] [address] [id number] [place] [address]- 2516 Mar, [facility] [address] [id number] [place] [address]- 2546 Mar, [facility] [place] [facility] [address] [id number] [place] [address]- 5416 Mar, [facility] [address] [id number] [place] [address]- 2546 Mar, [facility] [address] [id number] [place] [address] Feb, [facility] [place] [facility] [address] [id number] [place] [address]- 7265 Feb, [facility] [place] [facility] [address] [id number] [place] [address]- 0793 Feb, [facility] [place] [facility] [address] [id number] [place] [address]- 7210 Feb, [facility] [place] [facility] [address] [id number] [place] [address]- 3516 Jan, [facility] [place] [facility] [address] [id number] [place] [address]- 0351 Jan, [facility] [place] [facility] [address] [id number] [place] [address]- 7522 Jan, [facility] [place] [facility] [address] [id number] [place] [address]- 9995 Jan, [facility] [place] [facility] [address] [id number] [place] [address]- 8682 Nov, [facility] [place] [facility] [address] [id number] [place] [address]- 5481 Mar, [facility] [place] [facility] [address] [id number] [place] [address]- 2720 Mar, [facility] [place] [facility] [address] [id number] [place] [address]- 6511 Mar, [facility] [place] [facility] [address] [id number], [place] [address]- 7743 Mar, [facility] [place] [facility] [address] [id number] [place] [address]- 6241 Mar, [facility] [place] [facility] [address] [id number] [place] [address] Mar, [facility] [place] [facility] [address] [id number] [place] [address]- 1813 Feb, [facility] [place] [facility] [address] [facility] [id number] [place] [address]- 8558 30 Feb, 2010 [facility] [address] [facility] [id number] [place] [address] 28 Jan, 2009 [facility] [address] [facility] [id number] [place] 14 Jan, 2009 [facility] [address] [facility] [id number] [place] [address]- 8856 Jan, IMMUNIZATIONS No Known Immunizations SOCIAL HISTORY Never Assessed REASON FOR VISIT Lyrica - 02/25 PLAN OF CARE VITAL SIGNS MEDICATIONS Medication Instructions Dosage Frequency Start Date End Date Duration Status Lyrica 150 MG Orally 2 times a [...] 2016 scope due to have repeat 2020 09-2015 & 2007 Surgical History Bladder surgery [facility] 03/2016 Surgical History Neurotransmitter placed 10/2017 Surgical History retninal repair 12/31/2017 Hospitalization History Surgeries Only Hospitalization History bacterial meningitis December 2016 Hospitalization History [facility] psych for SI 1988 Hospitalization History [facility]-Altered mental status 05/2017
--- OUTSIDE RECORDS SUMMARY | 2018-05-29 07:32 | XMS REPORT ---
Author Author ZHANE BOCSH [facility] Address [address] [place] [address] Care Team Providers Care Hand Carver Name Role Phone ZHANE BOSCH Unavailable PROBLEMS Type Condition ICD9-CM Code OYB54-LE Code Onset Dates Condition Status SNOMED Code Problem Generalized anxiety disorder F41.1 Active 59670225 Problem Low back pain M54.5 Active 300037910 Problem Coronary artery disease involving [place] coronary artery of [place] heart, angina presence unspecified I25.10 Active 7488139321308 Problem Dysthymic 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 Active 45810746 Problem Restless leg G25.81 Active 99535472 Problem Hypothyroid E03.9 Active 20770310 Problem Insomnia G47.00 Active 561556019 Problem Asthma J45.909 Active 809531146 Problem Palpitations R00.2 Active 52348904 Problem Anemia in chronic kidney disease D63.1 Active 125715821193120 Problem Depressed F32.9 Active 59236581 Problem Bipolar disorder, current episode manic without psychotic features F31.10 Active 744314082 Problem Chronic kidney disease, stage 4 (severe) N18.4 Active 586956856 Problem Degenerative tear of medial meniscus of left knee M23.204 Active 279558763 Problem Mood disorder F39 Active 94079400 Problem Primary osteoarthritis of left knee M17.12 Active 646622489 Problem Perimenopausal vasomotor symptoms N95.1 Active 591488082 Problem Chronic pain syndrome G89.4 Active 849485143 Problem Asthma with acute exacerbation in adult J45.901 Active 445621744 Problem History of colon polyps Z86.010 Active 651515375 Problem Functional 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 Active 49798845 Problem Body mass index (BMI) of 40.0-44.9 in adult Z68.41 Active 352668122 Problem Stage 3 chronic kidney disease N18.3 Active 722850400 Problem Restless leg syndrome G25.81 Active 37668139 Problem Seasonal allergic rhinitis due to pollen J30.1 Active 16302449 Problem Long-term use of high-risk medication Z79.899 Active 884895077 Problem Hypokalemia E87.6 Active 91538521 Problem Abnormal chest CT R93.8 Active 688738822 Problem Fibromyalgia M79.7 Active 846882395 Problem History of anemia Z86.2 Active 091949347 Problem Other seasonal allergic rhinitis J30.2 Active 333823636 Problem Essential (primary) hypertension I10 Active 78410579 Problem Chronic kidney disease, unspecified N18.9 Active 666623520 Problem Mixed stress and urge urinary incontinence N39.46 Active 768713199 Problem Vitamin D deficiency E55.9 Active 95129143 ALLERGIES No Information ENCOUNTERS Encounter Location Date Diagnosis [place] [address] [address] Mar, [place] [address] [address]- 3[address] Feb, [place] [address] 15[address]- 9036 Feb, [facility] [address] 24[address]- 5348 Feb, Fibromyalgia M79.7 [place] [address] 8[address]70- 9112 08 Feb, 2018 Complicated UTI (urinary tract infection) N39.0 [facility] [address] 27466- 8[address] Feb, [facility] [address] 37155- 9476 Jan, Generalized anxiety disorder F41.1 and Major depressive disorder, recurrent episode with anxious distress F33.9 [facility] [address] [address] Jan, Acute conjunctivitis of left eye, unspecified acute conjunctivitis type H10.32 [facility] [address] 6[address]- 2388 Jan, [facility] [address] [place] [id number] [place] [address] 95565- 1632 Jan, Acute non-recurrent maxillary sinusitis J01.00 ; Dysuria R30.0 ; Perimenopausal vasomotor symptoms N95.1 and Fibromyalgia M79.7 [facility] [address] [place] [id number] [place] [address] 66375- 9721 Dec, Vitamin D deficiency E55.9 [facility] [address] 23999- 3770 Dec, Vitamin D deficiency E55.9 [facility] [address] 39242- 9892 Dec, Vitamin D deficiency E55.9 [facility] [address] 79955- 7457 Dec, [facility] [address] 79276- 8591 Dec, Fibromyalgia M79.7 [facility] [address] 88880- 3858 Nov, [facility] [address] 87734- 0691 Nov, [facility] [address] [place] [id number] [place] [address] 63559- 0242 Nov, [facility] [address] [place] [id number] [place] [address] 07326- 2058 Nov, Fibromyalgia M79.7 ; Vision changes H53.9 ; Chest wall pain R07.89 and Chronic pain syndrome G89.4 [facility] [address] 31332- 6107 Nov, [facility] [address] [place] [id number] [place] [address] 77377- 7301 Nov, Rash of hands R21 [facility] [address] [place] [address]- 6270 Nov, Generalized anxiety disorder F41.1 and Major depressive disorder, recurrent episode with anxious distress F33.9 [place] [address] [place] [id number] [place] [address] 52501- 9959 Nov, Fibromyalgia M79.7 [facility] [address] [place] [id number] [place] [address] 93602- 6911 Nov, Complicated UTI (urinary tract infection) N39.0 [facility] [address] 82973- 5702 Oct, [place] [address] 88122- 7868 Oct, Generalized anxiety disorder F41.1 and Major depressive disorder, recurrent episode with anxious distress F33.9 [place] [address] [place] [id number] [place] [address] 92941- 9905 Oct, [place] [address] 98251- 3310 Oct, Fibromyalgia M79.7 [place] [address] 42666- 4310 Sep, Restless leg syndrome G25.81 and Restless leg G25.81 [place] [address] [place] [id number] [place] [address] 20308- 5773 Sep, [place] [address] [place] [id number] [place] [address] 89372- 8263 Sep, Seasonal allergic rhinitis due to pollen J30.1 ; Screening for breast cancer Z12.31 ; Chest pain at rest R07.9 ; Restless leg syndrome G25.81 ; Essential (primary) hypertension I10 and Depressed F32.9 [facility] [address] [place] [id number] [place] [address] 20056- 6830 August, Fibromyalgia M79.7 [facility] [address] 17022- 7828 August, [place] [address] [place] [id number] [address] 0057 August, [place] [address] [place] [id number] [place] [address] 32553- [address] August, [address] R93.8 [place] [address] [place] [id number] [place] [address] 48103- 8788 August, Generalized anxiety disorder F41.1 and Major depressive disorder, recurrent episode with anxious distress F33.9 [place] [address] [place] [id number] [place] [address] 26936- 8542 August, Ab[address] chest [address] R93.8 [place] [address] [place] [id number] [place] [address] 31001- 6938 Jul, [place] [address] [place] [id number] [place] [address] 05962- 2159 Jul, Chronic kidney disease, stage 4 (severe) N18.4 [place] [address] [place] [id number] [place] [address] 95172- 1798 Jul, [place] [address] [place] [id number] [place] [address] 26003- 2562 Jul, Restless leg G25.81 ; Mixed stress and urge urinary incontinence N39.46 and Fibromyalgia M79.7 [place] [address] [place] [id number] [place] [address] 49352- 4247 Jul, Chronic kidney disease, stage 4 (severe) N18.4 [place] [address] [place] [id number] [place] [address] 33993- 6732 Jun, Orthostatic hypotension I95.1 ; Chronic kidney disease, stage 4 (severe) N18.4 ; Chest wall discomfort R07.89 and Body mass index (BMI) of 40.0-44.9 in adult Z68.41 [place] [address] [place] [id number] [place] [address] 15641- 4829 Jun, [place] [address] [place] [id number] [place] [address] 63050- 1148 Jun, Orthostatic hypotension I95.1 [facility] [address] [place] [id number] [place] [address] 79342- 0169 Jun, [facility] [address] [place] [id number] [place] [address] 69165 -2036 Jun, Orthostatic hypotension I95.1 ; Dysuria R30.0 and Acute cystitis without hematuria N30.00 [facility] [address] [place] [id number] [place] [address] 86902- 2994 Jun, [facility] [address] [place] [id number] [place] [address] 90642- 8908 Jun, Chronic kidney disease, stage 4 (severe) N18.4 [place] [address] [place] [id number] [place] [address] 85797- 2238 Jun, Fibromyalgia M79.7 [facility] [address] [place] [id number] [place] [address] 08548- 5277 Jun, [facility] [address] [place] [id number] [place] [address] 82539- 5313 Jun, [facility] [address] [place] [id number] [place] [address] 17541- [address] May, [address] R93.8 and Stage 3 chronic kidney disease N18.3 [facility] [address] [place] [id number] [place] [address] 86200- 5960 May, Chronic kidney disease, stage 4 (severe) N18.4 [facility] [id number] [place] [address] 46039- 4547 May, Chronic kidney disease, stage 4 (severe) N18.4 [facility] [address] [place] [id number] [place] [address] 50507- [address] May, Ab[address] chest [address] R93.8 [facility] [address] [place] [id number] [place] [address] 31799- 9565 May, [facility] [address] [address]- 3791 May, [facility] [id number] [place] [address] 40191- 9794 May, Generalized anxiety disorder F41.1 and Major depressive disorder, recurrent episode with anxious distress F33.9 [facility] [id number] [place] [address] 94000- 3570 May, Mood disorder F39 [facility] [id number] [place] [address] 39949- 3553 Apr, [facility] [id number] [place] [address] 71763- 0328 Apr, Infected skin lesion L08.9 and Muscle strain of right shoulder region, initial encounter S46.911A [facility] [id number] [place] [address] 28530- 5955 Apr, Generalized anxiety disorder F41.1 and Major depressive disorder, recurrent episode with anxious distress F33.9 [facility] [id number] [place] [address] 76629- 1693 Apr, [facility] [id number] [place] [address] 97457- 2934 Apr, Recent urinary tract infection Z87.440 and Hypothyroid E03.9 [facility] [id number] [place] [address] 22298- 1748 Apr, Generalized anxiety disorder F41.1 and Major depressive disorder, recurrent episode with anxious distress F33.9 [facility] [id number] [place] [address] 22697- 5772 Apr, Recent urinary tract infection Z87.440 [facility] [id number] [place] [address] 02962- 0961 Mar, [facility] [id number] [place] [address] 97897 -1695 Mar, Dysuria R30.0 ; Acute cystitis without hematuria N30.00 and BMI 40.0-44.9, adult Z68.41 [place] [id number] [place] [address] 40896- 5437 14 Mar, 2017 [place] [address] [place] [id number] [place] [address] 08260- 2353 Mar, [place] [address] [place] [id number] [place] [address] 74218- 1316 Mar, Generalized anxiety disorder F41.1 and Major depressive disorder, recurrent episode with anxious distress F33.9 [place] [address] [place] [id number] [place] [address] 21793- 8124 Feb, Conjunctivitis, bacterial H10.9 [place] [address] [place] [id number] [place] [address] 47769- 1924 Feb, [facility] [address] [place] [id number] [place] [address] 04166 -8843 Feb, Conjunctivitis, bacterial H10.9 [place] [address] [place] [id number] [place] [address] 55595- 9621 Feb, [facility] [id number] [place] [address] 02402 -6592 Feb, Dysuria R30.0 ; Acute cystitis N30.00 and BMI 40.0-44.9, adult Z68.41 [place] [id number] [place] [address] 39696- 0920 Feb, [place] [address] [place] [id number] [place] [address] 31069- 3506 Feb, Generalized anxiety disorder F41.1 and Major depressive disorder, recurrent episode with anxious distress F33.9 [place] [id number] [place] [address] 20163- 2650 Feb, Mood disorder F39 and BMI 40.0-44.9, adult Z68.41 [facility] [address] [address]- 3227 Jan, [facility] [address] [place] [id number] [place] [address] 85502- 7527 Jan, [facility] [address] [place] [id number] [place] [address] 78391- 1739 Jan, Hypothyroid E03.9 [place] [address] [place] [id number] [place] [address] 98688- 0093 Jan, [place] [address] [place] [id number] [place] [address] 70652- 6542 Jan, Chronic kidney disease, unspecified N18.9 ; Hypokalemia E87.6 ; Essential (primary) hypertension I10 ; Fibromyalgia M79.7 ; Coronary artery disease involving [place] coronary artery of [place] heart, angina presence unspecified I25.10 ; Hypothyroid E03.9 and Encounter for immunization Z23 [place] [address] [place] [id number] [place] [address] 71624- 2589 Jan, Hypothyroid E03.9 [place] [address] [place] [id number] [place] [address] 34205- 5680 Jan, [place] [address] [place] [id number] [place] [address] 14130- 3094 Dec, Vitamin D deficiency E55.9 [place] [address] [place] [id number] [place] [address] 15746- 5439 28 Dec, 2016 Primary osteoarthritis of left knee M17.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 [place] [address] [place] [id number] [place] [address] 52027- 7675 19 Dec, 2016 Fibromyalgia M79.7 [facility] [address] [place] [id number] [place] [address] 46160- 9019 18 Dec, 2016 Mood disorder F39 [place] [address] [place] [id number] [place] [address] 68566- 2563 13 Dec, 2016 [facility] [address] [address]- 9783 13 Dec, 2016 Generalized anxiety disorder F41.1 and Major depressive disorder, recurrent episode with anxious distress F33.9 [facility] [address] [address]- 7407 11 Dec, 2016 [facility] [address] [address]- 9542 08 Dec, 2016 Streptococcal meningitis G00.2 [facility] [id number] [address]- 0082 07 Dec, 2016 Streptococcal meningitis G00.2 [facility] [id number] [place] [address] 96959- 5083 07 Dec, 2016 [facility] [address] [address]- 8961 06 Dec, 2016 Streptococcal meningitis G00.2 [facility] [address] [address]- 4149 06 Dec, 2016 [facility] [id number] [place] [address] 85407- 7359 06 Dec, 2016 Major depressive disorder, recurrent episode with anxious distress F33.9 [facility] [address] [address]- 1806 Nov, Fever, unspecified fever cause R50.9 [facility] [address] [address]- 3453 24 Nov, 2016 [facility] [id number] [place] [address] 79711- 0305 16 Nov, 2016 Hypothyroid E03.9 [facility] [id number] [address]- 9359 10 Nov, 2016 Generalized anxiety disorder F41.1 and Major depressive disorder, recurrent episode with anxious distress F33.9 [facility] [id number] [place] [address] 54632- 3584 Nov, [facility] [address] [address] [id number] [id number] Oct, Dental examination Z01.20 [facility] [id number] [place] [address] 95240- 8373 Oct, Generalized anxiety disorder F41.1 and Major depressive disorder, recurrent episode with anxious distress F33.9 [facility] [address] [place] [id number] [place] [address] 39666- 2071 Oct, Chronic kidney disease, stage 4 (severe) N18.4 [facility] [address] [place] [id number] [place] [address] 19877- 7251 Oct, [facility] [id number] [place] [address] 61212- 6270 Oct, Fibromyalgia M79.7 [facility] [address] [place] [id number] [place] [address] 38864- 1399 Oct, [facility] [id number] [place] [address] 07309- 5208 Oct, Generalized anxiety disorder F41.1 ; Major depressive disorder, recurrent episode with anxious distress F33.9 and Bipolar disorder, current episode manic without psychotic features F31.10 [facility] [address] [address]- 2486 Sep, [facility] [address] [address]- 9583 Sep, [facility] [id number] [place] [address] 84175- 3228 Sep, Vitamin D deficiency E55.9 [facility] [address] [address]- 5906 14 Sep, 2016 Vitamin D deficiency E55.9 [facility] [address] [address]- 1816 Sep, [facility] [address] [place] [id number] [place] [address] 24975- 7597 Sep, Chronic kidney disease, stage 4 (severe) N18.4 ; Hypothyroid E03.9 ; Restless leg G25.81 ; Fibromyalgia M79.7 ; Essential ( primary) hypertension I10 ; Vitamin D deficiency E55.9 ; Dyspepsia R10.13 ; Anemia in chronic kidney disease D63.1 ; Chronic kidney disease, unspecified N18.9 ; Coronary artery disease involving [place] coronary artery of [place] heart , angina presence unspecified I25.10 ; Screening breast examination Z12.39 and Low back pain M54.5 [place] [address] [place] [id number] [place] [address] 88475- 0059 August, Generalized anxiety disorder F41.1 and Major depressive disorder, recurrent episode with anxious distress F33.9 [place] [address] [place] [id number] [place] [address] 12727- 1357 August, Generalized anxiety disorder F41.1 and Major depressive disorder, recurrent episode with anxious distress F33.9 [place] [address] [place] [id number] [place] [address] 88879- 0374 August, Fibromyalgia M79.7 [place] [address] [place] [id number] [place] [address] 81503- 5946 Jul, Generalized anxiety disorder F41.1 and Major depressive disorder, recurrent episode with anxious distress F33.9 [place] [address] [place] [id number] [place] [address] 97206- 4735 Jul, Fibromyalgia M79.7 [place] [address] [place] [id number] [place] [address] 39506- 6502 Jul, Generalized anxiety disorder F41.1 [place] [address] [place] [id number] [place] [address] 16358- 1780 May, [place] [address] [place] [id number] [place] [address] 96891- 8831 May, Hypothyroid E03.9 [place] [address] [place] [id number] [place] [address] 46453- 1480 08 May, 2016 Chronic kidney disease, stage 4 (severe) N18.4 ; Hypothyroid E03.9 ; Restless leg G25.81 ; Fibromyalgia M79.7 ; Essential ( primary) hypertension I10 ; Vitamin D deficiency E55.9 ; Dyspepsia R10.13 ; Acute non-recurrent maxillary sinusitis J01.00 ; Anemia in chronic kidney disease D63.1 ; Chronic kidney disease, unspecified N18.9 and Coronary artery disease involving [place] coronary artery of [place] heart, angina presence unspecified I25.10 [place] [address] [place] [id number] [place] [address] 73496- 1185 May, Vitamin D deficiency, unspecified E55.9 [place] [address] [place] [id number] [place] [address] 05743- 6846 May, Generalized anxiety disorder F41.1 and Major depressive disorder, recurrent episode with anxious distress F33.9 [place] [address] [place] [id number] [place] [address] 86887- 1021 Apr, Pain in right knee M25.561 and Pain in left knee M25.562 [place] [address] [id number] [place] [address] 55066- 7838 Apr, [place] [address] [place] [id number] [place] [address] 24533- 8234 Apr, [place] [address] [id number] [place] [address] 68332- 2951 Apr, [place] [address] [place] [id number] [place] [address] 11447- 4572 Mar, Generalized anxiety disorder F41.1 and Major depressive disorder, recurrent episode with anxious distress F33.9 [place] [address] [place] [id number] [place] [address] 43950- 6007 Mar, Generalized anxiety disorder F41.1 and Major depressive disorder, recurrent episode with anxious distress F33.9 [place] [address] [id number] [place] [address] 13407- 6326 Mar, [facility] [id number] [place] [address] 77827- 3151 Mar, [facility] [id number] [place] [address] 96453- 4869 Mar, [facility] [id number] [place] [address] 98488- 8658 Mar, Asthma J45.909 and Fibromyalgia M79.7 [place] [address] 85927- 3449 Mar, Chronic kidney disease, stage 4 (severe) N18.4 ; Vitamin D deficiency E55.9 and Essential (primary) hypertension I10 [place] [address] 50029- 1201 Feb, [place] [address] 68609- 9349 Feb, Dysuria R30.0 ; Mixed stress and urge urinary incontinence N39.46 ; Fibromyalgia M79.7 and Chronic kidney disease, stage IV (severe) N18.4 [place] [address] 98133- 9595 Feb, Chronic kidney disease, stage 4 (severe) N18.4 [place] [id number] [place] [address] 87294- 4157 Feb, Chronic kidney disease, stage 4 (severe) N18.4 [place] [id number] [place] [address] 38336- 9989 Feb, [place] [address] 89378- 6749 Feb, Vitamin D deficiency, unspecified E55.9 [place] [id number] [place] [address] 37738- 7707 Jan, [place] [address] 46321- 6907 Jan, [facility] [address] [address]- 7536 Dec, [facility] [id number] [place] [address] 46308- 2855 Dec, Chronic kidney disease, stage 4 (severe) N18.4 [facility] [id number] [place] [address] 59235- 6398 Dec, Dysthymic 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 and Generalized anxiety disorder F41.1 [facility] [id number] [place] [address] 66423- 5078 Dec, [facility] [id number] [place] [address] [phone] Dec, [facility] [id number] [place] [address] [phone] Dec, Dysthymic 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 and Generalized anxiety disorder F41.1 [facility] [id number] [place] [address] [phone] Dec, Dysuria R30.0 ; Chronic kidney disease, stage 4 (severe) N18.4 ; Hypertension I10 ; Dyspepsia R10.13 ; Yeast dermatitis B37.2 ; Palpitations R00.2 ; Hypothyroid E03.9 ; Functional 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 and Other seasonal allergic rhinitis J30.2 [facility] [id number] [place] [phone] Dec, [facility] [id number] [place] [phone] Nov, Dysuria R30.0 and Stress incontinence N39.3 [facility] [id number] [place] [address] [phone] Nov, [facility] [address] [place] [id number] [place] [address] 63504- 1529 Nov, [facility] [id number] [place] [address] 12365- 7407 Nov, Osteoarthritis of knees, bilateral M17.0 [place] [address] 44837- 8405 Nov, Dysthymic 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 and Generalized anxiety disorder F41.1 [place] [address] 98635- 0531 Nov, [place] [address] 40617- 7525 Nov, [place] [address] [id number] [place] [address] 79348- 6696 Nov, Urgency of urination R39.15 [place] [address] 04652- 2298 Nov, [place] [address] 35235- 7032 Nov, Chronic kidney disease, stage 4 (severe) N18.4 [place] [id number] [place] [address] 56791- 6278 Oct, Hypertension I10 ; Coronary artery disease involving [place] coronary artery of [place] heart, angina presence unspecified I25.10 ; Palpitations R00.2 ; Hypothyroid E03.9 ; Right foot pain M79.671 ; Functional 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 and Other seasonal allergic rhinitis J30.2 [place] [address] [id number] [place] [address] 01618- 0239 Oct, Dysthymic 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 and Generalized anxiety disorder F41.1 [place] [id number] [place] [address] 85097- 5894 Sep, [place] [address] 85723- 2784 Sep, [place] [address] [id number] [place] [address] 61835- 9456 Sep, [place] [address] [id number] [place] [address] 10211- 0923 30 Sep, 2015 [place] [address] 25576- 8875 Sep, [place] [address] [place] [id number] [place] [address] 52396- 2346 Sep, Dysthymic 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 and Generalized anxiety disorder F41.[address] 46607- 3957 16 Sep, 2015 Asthma with acute exacerbation in adult J45.901 ; Dysuria R30.0 ; Chronic kidney disease, stage 4 (severe) N18.4 and History of anemia Z86.[address] 65873- 6624 2015 Generalized anxiety disorder F41.1 and Dysthymic 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 71561- 8234 August, Screening breast examination Z12.39 and Acute recurrent maxillary sinusitis J01.01 [place] [id number] [place] [address] 44760- 1359 August, Osteoarthritis of knees, bilateral M17.0 [place] [id number] [place] [address] 68089- 4103 August, Chronic kidney disease, stage 4 (severe) N18.4 ; Acute non- recurrent maxillary sinusitis J01.00 ; Urinary problem R39.89 ; Bowel habit changes R19.4 ; Functional 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 and History of colon polyps Z86.010 [place] [address] [id number] [place] [address] 70815- 3084 Jul, Dysthymic 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 and Generalized anxiety disorder F41.1 [place] [id number] [place] [address] 81070- 9851 Jul, [place] [address] [id number] [place] [address] 01893- 8014 Jul, Dysthymic 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 ; Generalized anxiety disorder F41.1 and 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 [place] [id number] [place] [address] 65817- 7491 Jul, [place] [id number] [place] [address] 43048- 1408 Jun, [place] [address] [place] [id number] [place] [address] 02108- 6507 Jun, [place] [address] [id number] [place] [address] 45160- 1104 May, [place] [address] [place] [id number] [place] [address] 51813- 3732 May, Dysthymic 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 and Generalized anxiety disorder F41.1 [place] [address] [id number] [place] [address] 60556- 5772 Apr, Kidney disease N28.9 [place] [address] [id number] [place] [address] 20637- 7877 Apr, Generalized anxiety disorder F41.1 and Dysthymic 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 [place] [id number] [place] [address] 48490- 8881 Apr, Chronic kidney disease, stage 4 (severe) N18.4 [place] [id number] [place] [address] 24556- 7069 Apr, Generalized anxiety disorder F41.1 ; Major depression, recurrent F33.9 and Sleep disturbance G47.9 [place] [address] [place] [id number] [place] [address] 97459- 8400 Mar, Generalized anxiety disorder F41.1 and Dysthymic 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 [place] [id number] [place] [address] 49556- 0447 Mar, Generalized anxiety disorder F41.1 ; Dysthymic 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 and Insomnia G47.00 [facility] [id number] [place] [address] 75861- 2902 Mar, [facility] [id number] [place] [address] 75706- 3145 Mar, [facility] [id number] [place] [address] 93519- 7209 Mar, Osteoarthritis of knees, bilateral M17.0 [facility] [address] 15511- 6044 Mar, Hypertension I10 ; Hypothyroid E03.9 ; Dysthymic 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 ; Chronic kidney disease, stage 4 (severe) N18.4 and Nausea & vomiting R11.2 [place] [address] [id number] [place] [address] 88814- 1877 Mar, Generalized anxiety disorder F41.1 ; Dysthymic 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 and Insomnia G47.00 [facility] [address] [id number] [place] [address] 46865- 6149 Mar, Dehydration E86.0 ; Chronic kidney disease, stage 4 (severe ) N18.4 and Nausea & vomiting R11.2 [facility] [id number] [place] [address] 35262 -7853 08 Mar, 2015 Gastroenteritis K52.9 [facility] [address] [id number] [place] [address] 70408- 1584 Mar, [facility] [id number] [place] [address] 67371- 1316 Mar, [facility] [id number] [place] [address] 40818- 4278 Feb, Dysthymic 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 and Generalized anxiety disorder F41.1 [facility] [id number] [place] [address] 05925- 4338 Jan, UTI (urinary tract infection) N39.0 ; Asthma J45.909 ; Coronary artery disease involving [place] coronary artery of [place] heart, angina presence unspecified I25.10 ; Hypertension I10 ; Hypothyroid E03.9 ; Vitamin D deficiency E55.9 ; Insomnia G47.00 ; Palpitations R00.2 ; Depressed F32.9 ; Restless leg G25.81 and Anxiety F41.9 [place] [address] [id number] [place] [address] 28556- 0366 Jan, Dysthymic 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 and Generalized anxiety disorder F41.1 [place] [address] 38407- 8052 Jan, [place] [address] 03654- 4531 Dec, [place] [address] 04224- 5257 Dec, Alkalosis 276.3 ; Chronic kidney disease, 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.4 ; Hyperpotassemia 276.7 ; Secondary hyperparathyroidism, renal 588.81 ; Proteinuria 791.0 ; Unspecified vitamin D deficiency 268.9 ; Anemia in chronic kidney disease 285.21 ; Other and unspecified hyperlipidemia 272.4 ; Hypertension, essential, benign 401.1 and Chronic kidney disease (CKD), stage III (moderate) 585.3 [place] [address] [id number] [place] [address] 32739- 1776 Dec, [place] [address] [place] [id number] [place] [address] 29909- 7223 Dec, Depressive disorder, not elsewhere classified 311 and Generalized anxiety disorder 300.02 [place] [address] [id number] [place] [address] 85727- 6039 Dec, [place] [address] 18310- 9606 Dec, [place] [address] [place] [id number] [place] [address] 12715- 0120 Nov, Depressive disorder, not elsewhere classified 311 and Generalized anxiety disorder 300.02 [place] [address] [place] [id number] [place] [address] 06862- 5714 Nov, Arthritis of both knees 716.96 [place] [id number] [place] [address] 19962- 5975 Nov, PAF (paroxysmal atrial fibrillation) 427.31 ; CAD (coronary artery disease) 414.00 ; Chest pain 786.50 and Chronic kidney disease (CKD) stage G4/A1, severely decreased glomerular filtration rate (GFR) between 15-29 mL/min/1.73 square meter and albuminuria creatinine ratio less than 30 mg/g 585.[address] 93653- 6049 Oct, Coronary atherosclerosis of unspecified type of vessel, [place] or graft 414.00 ; Chronic kidney disease, 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.4 ; Hypertension 401.9 and Edema 782.[address] 66961- 6183 Oct, Depressive disorder, not elsewhere classified 311 and Generalized anxiety disorder 300.02 [place] [id number] [place] [address] 23695- 4527 Oct, Depressive disorder, not elsewhere classified 311 and Generalized anxiety disorder 300.02 [place] [id number] [place] [address] 49074- 5748 Oct, [place] [id number] [place] [address] 92080- 2310 Oct, [place] [id number] [place] [address] 88171- 1163 Sep, [place] [id number] [place] [address] 54712- 8085 Sep, Chronic kidney disease, 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.4 [place] [id number] [place] [address] 68018- 0108 Sep, [address] 68143- 6060 Sep, Coronary atherosclerosis of unspecified type of vessel, [place] or graft 414.00 ; Hypertension 401.9 ; Edema 782.3 and Hypothyroidism 244.9 [facility] [id number] [place] [address] 00063- 1337 Sep, Coronary atherosclerosis of unspecified type of vessel, [place] or graft 414.00 ; Hypertension 401.9 ; Fibromyalgia 729.1 ; Edema 782.3 ; Hypothyroidism 244.9 and Anemia 285.9 [facility] [address] 01676- 1623 Sep, Anxiety disorder, unspecified 300.00 and Depressive disorder , not elsewhere classified 311 [place] [address] 42850- 1806 Sep, [facility] [address] 92105- 5420 August, Generalized anxiety disorder 300.02 [facility] [address] 71250- 9254 August, Closed fracture of lateral malleolus 824.2 [place] [address] 05760- 3865 Jul, [facility] [address] [id number] [place] [address] 74070- 6624 Jul, [facility] [address] [id number] [place] [address] 69719- 7754 Jun, [facility] [address] [place] [id number] [place] [address] 45121- 0379 Jun, [facility] [address] [place] [id number] [place] [address] 02659- 0651 Jun, [facility] [address] [place] [id number] [place] [address] 22937- 2979 Jun, [facility] [address] [place] [id number] [place] [address] 60871- 0805 Jun, [facility] [place] [facility] [address] [id number] [place] [address]- 5302 Jun, [facility] [place] [facility] [address] [id number] [place] [address]- 4913 May, 2014 [facility] [place] [facility] [address] [id number] [place] [address]- 1646 May, 2014 [facility] [place] [facility] [address] [id number] [place] [address]- 5431 May, 2014 [facility] [place] [facility] [address] [id number] [place] [address]- 3055 May, 2014 [facility] [place] [facility] [address] [id number] [place] [address]- 8924 16 May, 2014 [facility] [place] [facility] [address] [id number] [place] [address]- 5604 16 May, 2014 [facility] [place] [facility] [address] [id number] [place] [address]- 4122 May, 2014 [facility] [place] [facility] [address] [id number] [place] [address]- 2241 13 May, 2014 [facility] [place] [facility] [address] [facility] [id number] [place] [address]- 8543 10 May, 2014 [facility] [place] [facility] [address] [id number] [place] [address]- 1763 May, [facility] [place] [facility] [address] [id number] [place] [address]- 4476 Apr, [facility] [place] [facility] [address] [id number] [place] [address]- 5734 Apr, [facility] [place] [facility] [address] [id number] [place] 7602 Mar, [facility] [place] [facility] [address] [facility] [id number] [place] [address]- 6652 Mar, [facility] [place] [facility] [address] [id number] [place] [address]- 3524 Mar, [facility] [place] [facility] [address] [id number] [place] [address]- 2236 Mar, [facility] [place] [facility] [address] [id number] [place] [address]- 6586 Mar, [facility] [place] [facility] [address] [id number] [place] [address]- 2025 Mar, [facility] [place] [facility] [address] [id number] [place] [address]- 0694 Mar, [facility] [place] [facility] [address] [id number] [place] [address]- 7051 Feb, [facility] [place] [facility] [address] [id number] [place] [address]- 0194 Feb, [facility] [place] [facility] [address] [id number] [place] [address]- 8224 Feb, [facility] [place] [facility] [address] [id number] [place] [address]- 1329 Jan, [facility] [place] [facility] [address] [id number] [place] [address]- 7519 Jan, [facility] [place] [facility] [address] [id number] [place] [address]- 7890 Jan, [facility] [place] [facility] [address] [id number] [place] [address]- 7390 Jan, [facility] [place] [facility] [address] [id number] [place] [address]- 3569 Jan, [facility] [place] [facility] [address] [id number] [place] [address]- 7092 Jan, [facility] [place] [facility] [address] [id number] [place] [address]- 5722 Jan, [facility] [place] [facility] [address] [id number] [place] [address]- 3242 Jan, [facility] [place] [facility] [address] [id number] [place] [address]- 0075 Jan, [facility] [place] [facility] [address] [id number] [place] [address]- 8860 Jan, [facility] [place] [facility] [address] [id number] [place] [address]- 4415 Nov, [facility] [place] [facility] [address] [id number] [place] [address]- 6581 Nov, [facility] [place] [facility] [address] [id number] [place] [address]- 4251 Nov, [facility] [place] [facility] [address] [id number] [place] [address]- 5728 Oct, [facility] [place] [facility] [address] [id number] [place] [address]- 2206 Oct, [facility] [place] [facility] [address] [id number] [place] [address]- 7796 Oct, [facility] [place] [facility] [address] [id number] [place] [address]- 3448 Oct, [facility] [place] [facility] [address] [id number] [place] [address]- 3617 Oct, [facility] [place] [facility] [address] [id number] [place] [address]- 8207 Oct, [facility] [place] [facility] [address] [id number] [place] [address]- 1435 Oct, [facility] [place] [facility] [address] [id number] [place] [address]- 7745 Oct, [facility] [place] [facility] [address] [id number] [place] [address]- 9253 Oct, [facility] [place] [facility] [address] [id number] [place] [address]- 0251 Sep, [facility] [place] [facility] [address] [id number] [place] [address]- 5360 Sep, [facility] [place] [facility] [address] [id number] [place] [address]- 6888 Sep, [facility] [place] [facility] [address] [id number] [place] [address]- 3906 Sep, [facility] [place] [facility] [address] [id number] [place] [address]- 0246 Sep, [facility] [place] [facility] [address] [id number] [place] [address]- 0854 Sep, [facility] [place] [facility] [address] [id number] [place] [address]- 1113 Sep, [facility] [place] [facility] [address] [id number] [place] [address]- 6018 Sep, [facility] [place] [facility] [address] [id number] [place] [address]- 1056 Sep, [facility] [place] [facility] [address] [id number] [place] [address]- 0872 August, [facility] [place] [facility] [address] [id number] [place] [address]- 8935 August, [facility] [place] [facility] [address] [facility] [id number] [place] [address]- 4156 August, [facility] [place] [facility] [address] [id number] [place] [address]- 0622 August, [facility] [place] [facility] [address] [id number] [place] [address]- 1087 August, [facility] [place] [facility] [address] [id number] [place] [address]- 6986 August, [facility] [place] [facility] [address] [id number] [place] [address]- 2517 Jul, [facility] [place] [facility] [address] [id number] [place] [address]- 1847 Jul, [facility] [place] [facility] [address] [id number] [place] [address]- 0347 08 Jul, 2013 [facility] [place] [facility] [address] [id number] [place] [address]- 0652 08 Jul, 2013 [facility] [place] [facility] [address] [id number] [place] [address]- 0244 Jul, [facility] [place] [facility] [address] [id number] [place] [address]- 0496 Jul, [facility] [place] [facility] [address] [id number] [place] [address]- 9449 Jun, [facility] [place] [facility] [address] [id number] [place] [address]- 2621 Jun, [facility] [place] [facility] [address] [id number] [place] [address]- 9099 May, [facility] [place] [facility] [address] [id number] [place] [address]- 4742 May, [facility] [place] [facility] [address] [id number] [place] [address]- 0045 May, [facility] [place] [facility] [address] [id number] [place] [address]- 0279 May, [facility] [place] [facility] [address] [id number] [place] [address]- 9087 Apr, [facility] [place] [facility] [address] [id number] [place] [address]- 8065 Apr, [facility] [place] [facility] [address] [id number] [place] [address]- 7973 Mar, [facility] [place] [facility] [address] [id number] [place] [address]- 9711 Mar, [facility] [place] [facility] [address] [id number] [place] [address]- 3828 17 Mar, 2013 [facility] [place] [facility] [address] [id number] [place] [address]- 6056 Mar, [facility] [place] [facility] [address] [id number] [place] [address]- 4069 Mar, [facility] [place] [facility] [address] [id number] [place] [address]- 9764 Mar, [facility] [place] [facility] [address] [id number] [place] [address]- 1118 Feb, [facility] [place] [facility] [address] [id number] [place] [address]- 3163 Feb, [facility] [place] [facility] [address] [id number] [place] [address]- 0045 Feb, [facility] [place] [facility] [address] [id number] [place] [address]- 9239 Feb, [facility] [place] [facility] [address] [id number] [place] [address]- 6308 Feb, [facility] [place] [facility] [address] [id number] [place] [address]- 4178 Feb, [facility] [place] [facility] [address] [id number] [place] [address]- 2907 Jan, [facility] [place] [facility] [address] [id number] [place] [address]- 7604 Jan, [facility] [place] [facility] [address] [id number] [place] [address]- 4005 Jan, [facility] [place] [facility] [address] [id number] [place] [address]- 2153 Jan, [facility] [place] [facility] [address] [id number] [place] [address]- 0045 08 Jan, 2013 [facility] [place] [facility] [address] [facility] [id number] [place] [address]- 8997 Jan, [facility] [place] [facility] [address] [id number] [place] [address]- 6041 Dec, [facility] [place] [facility] [address] [id number] [place] [address]- 2546 Dec, [facility] [address] [id number] [place] [address]- 0532 Nov, [facility] [address] [id number] [place] [address] Nov, [facility] [address] [id number] [place] [address] Oct, [facility] [address] [id number] [place] [address] Oct, [facility] [address] [id number] [place] [address] Oct, [facility] [address] [id number] [place] [address] Oct, [facility] [address] [id number] [place] [address] Oct, [facility] [address] [id number] [place] [address] Oct, [facility] [address] [id number] [place] [address] Sep, [facility] [address] [id number] [place] [address] Sep, [facility] [address] [id number] [place] [address] Sep, [facility] [address] [id number] [place] [address] Sep, [facility] [place] [facility] [address] [id number] [place] [address] August, [facility] [place] [facility] [address] [id number] [place] [address] August, [facility] [address] [id number] [place] [address] August, [facility] [address] [id number] [place] [address] August, [facility] [address] [id number] [place] [address] August, [facility] [address] [id number] [place] [address] Jul, [facility] [address] [id number] [place] [address] Jul, [facility] [address] [id number] [place] [address] Jul, [facility] [address] [id number] [place] [address] Jul, [facility] [address] [id number] [place] [address] Jul, [facility] [address] [id number] [place] [address] Jul, [facility] [address] [id number] [place] [address] Jul, [facility] [address] [id number] [place] [address] Jul, [facility] [address] [id number] [place] [address] Jul, [facility] [address] [id number] [place] [address] Jul, [facility] [address] [id number] [place] [id number] Jun, [facility] [address] [id number] [place] [address] Jun, [facility] [address] [id number] [place] [address] Jun, [facility] [address] [id number] [place] [address] Jun, [facility] [address] [id number] [place] [address] Jun, [facility] [address] [id number] [place] [address] May, [facility] [address] [id number] [place] [address] May, [facility] [address] [id number] [place] [address] May, [facility] [address] [id number] [place] [address] Apr, [facility] [address] [id number] [place] [address] Apr, [facility] [address] [id number] [place] [address] Apr, [facility] [address] [id number] [place] [address] Apr, [facility] [address] [id number] [place] [address] Apr, [facility] [address] [id number] [place] [address] Apr, [facility] [address] [id number] [place] [address] Mar, [facility] [place] [facility] [address] [id number] [place] [address] Mar, [facility] [place] [facility] [address] [id number] [place] [address]28 Mar, [facility] [place] [facility] [address] [id number] [place] [address] Mar, [facility] [place] [facility] [address] [id number] [place] [address] Feb, [facility] [place] [facility] [address] [id number] [place] [address] Feb, [facility] [place] [facility] [address] [id number] [place] [address] Feb, [facility] [place] [facility] [address] [id number] [place] [address] Feb, [facility] [place] [facility] [address] [id number] [place] [address] Feb, [facility] [facility] [address] [id number] [place] [address] Feb, [facility] [place] [facility] [address] [id number] [place] [address] Feb, [facility] [place] [facility] [address] [id number] [place] [address] 135[address] Feb, [facility] [place] [facility] [address] [id number] [place] [address] Feb, [facility] [place] [facility] [address] [id number] [place] [address] Feb, [facility] [place] [facility] [address] [id number] [place] [address] 6673 Feb, [facility] [address] [id number] [place] [address]842 Feb, [facility] [place] [facility] [address] [id number] [place] [address] Feb, [facility] [place] [facility] [address] [id number] [place] [address]- 2012 Feb, [facility] [facility] [address] [id number] [place] [address] Feb, [facility] [place] [facility] [address] [id number] [place] [address] Feb, [facility] [place] [facility] [address] [id number] [place] [address] 8[address] Jan, [facility] [place] [facility] [address] [id number] [place] [address] 1375 31 Jan, 2012 [facility] [facility] [address] [id number] [place] [address]- 6601 31 Jan, 2012 [facility] [address] [id number] [place] [address]- 7155 31 Jan, 2012 [facility] [address] [id number] [place] [address] 2634 30 Jan, 2012 [facility] [facility] [address] [id number] [place] [address]- 5406 Jan, [facility] [place] [facility] [address] [id number] [place] [address]- 4055 Jan, [facility] [address] [id number] [place] [address]- 9701 16 Jan, 2012 [facility] [address] [id number] [place] [address]- 9397 16 Jan, 2012 [facility] [address] [id number] [place] [address]- 3596 15 Jan, 2012 [facility] [address] [id number] [place] [address] 15 Jan, 2012 [facility] [address] [id number] [place] [address]600 Jan, [facility] [address] [id number] [place] [address]- [address]44 26 Dec, 2011 [facility] [address] [id number] [place] [address]- 5517 26 Dec, 2011 [facility] [address] [id number] [place] [address]- 5976 24 Dec, 2011 [facility] [address] [id number] [place] [address]- 2596 23 Dec, 2011 [facility] [facility] [address] [id number] [place] [address]- 2606 22 Sep, 2011 [facility] [address] [id number] [place] [address]- 9456 21 Sep, 2011 [facility] [address] [id number] [place] [address]- 6456 20 Sep, 2011 [facility] [address] [id number] [place] [address]- 3856 20 Sep, 2011 [facility] [address] [id number] [place] [address]- 9206 07 Sep, 2011 [facility] [address] [id number] [place] [address]- 8606 06 Sep, 2011 [facility] [address] [id number] [place] [address]- 6976 06 Sep, 2011 [facility] [address] [id number] [place] [address]- 4329 05 Sep, 2011 [facility] [address] [id number] [place] [address]- 1088 23 Nov, 2011 [facility] [address] [id number] [place] [address]- 6726 17 Nov, 2011 [facility] [address] [id number] [place] [address]- 4678 13 Nov, 2011 [facility] [address] [id number] [place] [address]- 5277 10 Nov, 2011 [facility] [address] [id number] [place] [address]- 2549 08 Nov, 2011 [facility] [address] [id number] [place] [address]- 0374 Nov, 2011 [facility] [address] [id number] [place] [address]- 8068 Nov, [facility] [address] [id number] [place] [address]- 3905 Nov, [facility] [address] [id number] [place] [address]- 2330 30 Oct, 2011 [facility] [address] [id number] [place] [address]- 4226 Oct, [facility] [address] [id number] [place] [address]- 5456 Oct, [facility] [address] [id number] [place] [address] 5186 Oct, [facility] [address] [id number] [place] [address] 2546 Oct, [facility] [address] [id number] [place] [address]- 9936 Oct, [facility] [address] [id number] [place] [address]- 6287 Oct, [facility] [address] [id number] [place] [address]- 5941 Sep, [facility] [address] [id number] [place] [address]- 4794 Sep, [facility] [address] [id number] [place] [address]- 8294 August, [facility] [address] [id number] [place] [address]- 4479 August, [facility] [address] [id number] [place] [address]- 7272 August, [facility] [address] [id number] [place] [address]- 2836 August, [facility] [address] [id number] [place] [address]- 2926 Jul, [facility] [address] [id number] [place] [address]- 3826 Jul, [facility] [address] [id number] [place] [address]- 1391 Jul, [facility] [address] [id number] [place] [address]- 2347 Jul, [facility] [address] [id number] [place] [address]- 1626 Jul, [facility] [address] [facility] [id number] [place] [address]- 0100 Jul, [facility] [address] [id number] [place] [address]- 2729 Jul, [facility] [address] [id number] [place] [address]- 4830 Jul, [facility] [address] [id number] [place] [address]- 6318 Jul, [facility] [address] [id number] [place] [address]- 0443 Jun, [facility] [address] [id number] [place] [address]- 2237 Jun, [facility] [address] [id number] [place] [address]- 2503 15 Jun, 2011 [facility] [address] [facility] [id number] [place] [address]- 8981 14 Jun, 2011 [facility] [address] [id number] [place] [address]- 2206 Jun, [facility] [address] [id number] [place] [address]- 9217 Jun, [facility] [address] [id number] [place] [address]- 7224 Jun, [facility] [address] [id number] [place] [address]- 1473 May, [facility] [address] [id number] [place] [address]- 3102 May, [facility] [address] [id number] [place] [address]- 1096 16 May, 2011 [facility] [address] [id number] [place] [address]- 5386 May, [facility] [address] [id number] [place] [address]- 2546 May, [facility] [address] [id number] [place] [address]- 6656 Apr, [facility] [address] [id number] [place] [address]- 2546 Apr, [facility] [address] [id number] [place] [address]- 5136 Apr, [facility] [address] [id number] [place] [address]- 6366 Apr, [facility] [address] [id number] [place] [address]- 8804 Apr, [facility] [address] [id number] [place] [address]- 2450 Mar, [facility] [address] [id number] [place] [address]- 4246 Mar, [facility] [address] [id number] [place] [address]- 0972 Mar, [facility] [address] [id number] [place] [address]- 1336 Mar, [facility] [address] [id number] [place] [address] 2546 Mar, [facility] [address] [id number] [place] [address]- 4036 Mar, [facility] [address] [id number] [place] [address]- 2546 Mar, [facility] [address] [id number] [place] [address] Feb, [facility] [address] [id number] [place] [address]- 3001 Feb, [facility] [address] [id number] [place] [address]- 6800 Feb, [facility] [address] [id number] [place] [address]- 8430 Feb, [facility] [address] [id number] [place] [address]- 4715 Jan, [facility] [address] [id number] [place] [address]- 1020 Jan, [facility] [address] [id number] [place] [address]- 5845 Jan, [facility] [address] [id number] [place] [address]- 5931 Jan, [facility] [address] [id number] [place] [address]- 5850 Nov, [facility] [address] [id number] [place] [address]- 2532 Mar, [facility] [address] [id number] [place] [address]- 8046 Mar, [facility] [address] [id number] [place] [address]- 8652 Mar, [facility] [address] [id number] [place] [address]- 7350 Mar, [facility] [address] [id number] [place] [address]- 3768 Mar, [facility] [address] [id number] [place] [address] Mar, [facility] [address] [id number] [place] [address]- 5307 Feb, [facility] [address] [facility] [id number] [place] [address]- 4425 30 Feb, 2010 [facility] [address] [facility] [id number] [place] [address]- 5303 28 Jan, 2009 [facility] [address] [facility] [id number] [place] [address]- 2768 14 Jan, 2009 [facility] [address] [facility] [id number] [place] [address]- 9579 Jan, IMMUNIZATIONS No Known Immunizations SOCIAL HISTORY Never Assessed REASON FOR VISIT refill request PLAN OF CARE VITAL SIGNS MEDICATIONS Unknown [...] 2020 & 2007 Surgical History Bladder surgery [facility] 03/2016 Surgical History Neurotransmitter placed 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
--- OUTSIDE RECORDS SUMMARY | 2018-05-29 07:33 | XMS REPORT ---
Author Author ISABEL AME [facility] Address [address] [place] [address] Care Team Providers Care Educational [employer] President Name Role Phone ISABEL MAE Unavailable PROBLEMS Type Condition ICD9-CM Code [id number] Code Onset Dates Condition Status SNOMED Code Problem Generalized anxiety disorder F41.1 Active 74940208 Problem Low back pain M54.5 Active 912820613 Problem Coronary artery disease involving muscogee coronary artery of muscogee heart, angina presence unspecified I25.10 Active 4680784520393 Problem Dysthymic 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 Active 42569228 Problem Restless leg G25.81 Active 59829779 Problem Hypothyroid E03.9 Active 81590361 Problem Insomnia G47.00 Active 209635155 Problem Asthma J45.909 Active 573705798 Problem Palpitations R00.2 Active 37167389 Problem Anemia in chronic kidney disease D63.1 Active 186085008059276 Problem Depressed F32.9 Active 60804891 Problem Bipolar disorder, current episode manic without psychotic features F31.10 Active 160132782 Problem Chronic kidney disease, stage 4 (severe) N18.4 Active 194787721 Problem Degenerative tear of medial meniscus of left knee M23.204 Active 801270723 Problem Mood disorder F39 Active 14473919 Problem Primary osteoarthritis of left knee M17.12 Active 732073350 Problem Perimenopausal vasomotor symptoms N95.1 Active 650161693 Problem Chronic pain syndrome G89.4 Active 756533790 Problem Asthma with acute exacerbation in adult J45.901 Active 967633216 Problem History of colon polyps Z86.010 Active 501499362 Problem Functional 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 Active 19001202 Problem Body mass index (BMI) of 40.0-44.9 in adult Z68.41 Active 129614849 Problem Stage 3 chronic kidney disease N18.3 Active 707942611 Problem Restless leg syndrome G25.81 Active 23965437 Problem Seasonal allergic rhinitis due to pollen J30.1 Active 14347894 Problem Long-term use of high-risk medication Z79.899 Active 336780298 Problem Hypokalemia E87.6 Active 60093853 Problem Abnormal chest CT R93.8 Active 094078731 Problem Fibromyalgia M79.7 Active 234221155 Problem History of anemia Z86.2 Active 439132047 Problem Other seasonal allergic rhinitis J30.2 Active 529519903 Problem Essential (primary) hypertension I10 Active 65202530 Problem Chronic kidney disease, unspecified N18.9 Active 993465623 Problem Mixed stress and urge urinary incontinence N39.46 Active 929447126 Problem Vitamin D deficiency E55.9 Active 01898403 ALLERGIES No Information ENCOUNTERS Encounter Location Date Diagnosis [facility] [address] [address] Mar, [facility] [address] [address] Feb, [place] [address] [address] Feb, Complicated UTI (urinary tract infection) N39.0 [facility] [address] [address]- [address] Feb, [facility] [address] [address] Jan, Generalized anxiety disorder F41.1 and Major depressive disorder, recurrent episode with anxious distress F33.9 [facility] [id number] [place] [address]31 -7244 Jan, Acute conjunctivitis of left eye, unspecified acute conjunctivitis type H10.32 [facility] [address] [address]- [address] Jan, [facility] [address] 264[address]- [address] Jan, Acute non-recurrent maxillary sinusitis J01.00 ; Dysuria R30.0 ; Perimenopausal vasomotor symptoms N95.1 and Fibromyalgia M79.7 [facility] [id number] [place] [address] 70750- 3930 28 Dec, 2017 Vitamin D deficiency E55.9 [facility] [id number] [place] [address] 55299- 7998 Dec, Vitamin D deficiency E55.9 [facility] [id number] [place] [address] 83877- 2918 24 Dec, 2017 Vitamin D deficiency E55.9 [facility] [id number] [place] [address] 43139- 8213 Dec, [facility] [address] [address]- [address] Dec, Fibromyalgia M79.7 [facility] [address] [address]- [address] Nov, [facility] [address] [address]- [address] Nov, [facility] [id number] [place] [address] 70414- 2293 Nov, [facility] [id number] [place] [address] 35644- 5292 Nov, Fibromyalgia M79.7 ; Vision changes H53.9 ; Chest wall pain R07.89 and Chronic pain syndrome G89.4 [place] [id number] [place] [address] 96850- 5397 Nov, [facility] [id number] [place] [address] 85120- 7005 Nov, Rash of hands R21 [facility] [address] 9[address]- 9851 Nov, Generalized anxiety disorder F41.1 and Major depressive disorder, recurrent episode with anxious distress F33.9 [place] [id number] [place] [address] 54459- 0139 Nov, Fibromyalgia M79.7 [facility] [address] [address] Nov, Complicated UTI (urinary tract infection) N39.0 [facility] [id number] [place] [address] 62828- 5678 Oct, [facility] [id number] [place] [address] 38372- 2437 Oct, Generalized anxiety disorder F41.1 and Major depressive disorder, recurrent episode with anxious distress F33.9 [facility] [id number] [place] [address] 54957- 4176 Oct, [place] [id number] [place] [address] 66582- 5942 Oct, Fibromyalgia M79.7 [facility] [id number] [place] [address] 25518- 8965 Sep, Restless leg syndrome G25.81 and Restless leg G25.81 [place] [id number] [place] [address] 94510- 9680 Sep, [facility] [id number] [place] [address] 30391- 9365 Sep, Seasonal allergic rhinitis due to pollen J30.1 ; Screening for breast cancer Z12.31 ; Chest pain at rest R07.9 ; Restless leg syndrome G25.81 ; Essential (primary) hypertension I10 and Depressed F32.9 [facility] [id number] [place] [address] 26260- 8534 August, Fibromyalgia M79.7 [facility] [id number] [place] [address] 53578- 8837 August, [facility] [id number] [place] [address] 90751- 3106 August, [facility] [id number] [place] [address] 70313- [address] August, [address] R93.8 [facility] [id number] [place] [address] 05253- 8558 August, Generalized anxiety disorder F41.1 and Major depressive disorder, recurrent episode with anxious distress F33.9 [facility] [id number] [place] [address] 87212- [address] August, Ab[address] chest [address] R93.8 [facility] [id number] [place] [address] 95497- 8298 Jul, [place] [id number] [place] [address] 45202- 0437 Jul, Chronic kidney disease, stage 4 (severe) N18.4 [place] [id number] [place] [address] 41998- 9703 Jul, [place] [id number] [place] [address] 80754- 4684 Jul, Restless leg G25.81 ; Mixed stress and urge urinary incontinence N39.46 and Fibromyalgia M79.7 [place] [id number] [place] [address] 56008- 2312 Jul, Chronic kidney disease, stage 4 (severe) N18.4 [place] [id number] [place] [address] 24080- 2615 Jun, Orthostatic hypotension I95.1 ; Chronic kidney disease, stage 4 (severe) N18.4 ; Chest wall discomfort R07.89 and Body mass index (BMI) of 40.0-44.9 in adult Z68.41 [place] [id number] [address] Jun, [place] [id number] [place] [address] 70507- 6024 Jun, Orthostatic hypotension I95.1 [place] [id number] [place] [address] 01035- 0889 Jun, [facility] [id number] [place] [address] 28945 -0002 Jun, Orthostatic hypotension I95.1 ; Dysuria R30.0 and Acute cystitis without hematuria N30.00 [facility] [id number] [place] [address] 63459- 4540 Jun, [facility] [id number] [place] [address] 36050- 5635 Jun, Chronic kidney disease, stage 4 (severe) N18.4 [facility] [id number] [place] [address] 20923- 5815 Jun, Fibromyalgia M79.7 [facility] [id number] [place] [address] 86498- 6811 Jun, [facility] [id number] [place] [address] 21036- 7420 Jun, [facility] [id number] [place] [address] 61726- [address] May, [address] R93.8 and Stage 3 chronic kidney disease N18.3 [facility] [id number] [place] [address] 64045- 8478 May, Chronic kidney disease, stage 4 (severe) N18.4 [facility] [id number] [place] [address] 51635- 8514 May, Chronic kidney disease, stage 4 (severe) N18.4 [facility] [id number] [place] [address] 75995- [address] May, Ab[address] chest [address] R93.8 [facility] [id number] [place] [address] 68516- 8193 May, [facility] [id number] [place] [address] 58383- 2428 May, [facility] [id number] [place] [address] 58837- 7590 May, Generalized anxiety disorder F41.1 and Major depressive disorder, recurrent episode with anxious distress F33.9 [place] [id number] [place] [address] 52320- 7250 May, Mood disorder F39 [facility] [id number] [place] [address] 02296- 5220 Apr, [facility] [id number] [place] [address] 75180- 2801 Apr, Infected skin lesion L08.9 and Muscle strain of right shoulder region, initial encounter S46.911A [place] [id number] [place] [address] 92686- 9957 Apr, Generalized anxiety disorder F41.1 and Major depressive disorder, recurrent episode with anxious distress F33.9 [place] [id number] [place] [address] 44730- 0485 Apr, [facility] [id number] [place] [address] 78759- 5176 Apr, Recent urinary tract infection Z87.440 and Hypothyroid E03.9 [place] [id number] [place] [address] 57510- 2910 Apr, Generalized anxiety disorder F41.1 and Major depressive disorder, recurrent episode with anxious distress F33.9 [place] [id number] [place] [address] 91142- 0907 Apr, Recent urinary tract infection Z87.440 [place] [id number] [place] [address] 30992- 1575 Mar, [facility] [id number] [place] [address] 31836 -6246 Mar, Dysuria R30.0 ; Acute cystitis without hematuria N30.00 and BMI 40.0-44.9, adult Z68.41 [place] [id number] [place] [address] 54224- 1599 14 Mar, 2017 [facility] [id number] [place] [address] 28418- 4641 Mar, [facility] [id number] [place] [address] 36151- 0271 Mar, Generalized anxiety disorder F41.1 and Major depressive disorder, recurrent episode with anxious distress F33.9 [facility] [id number] [place] [address] 69604- 7052 Feb, Conjunctivitis, bacterial H10.9 [place] [id number] [place] [address] 00058- 1544 Feb, [facility] [id number] [place] [address] 63767 -4362 Feb, Conjunctivitis, bacterial H10.9 [place] [id number] [place] [address] 94768- 5959 Feb, [facility] [id number] [place] [address] 07093 -3487 Feb, Dysuria R30.0 ; Acute cystitis N30.00 and BMI 40.0-44.9, adult Z68.41 [place] [id number] [place] [address] 66749- 8231 Feb, [place] [id number] [place] [address] 08654- 5302 Feb, Generalized anxiety disorder F41.1 and Major depressive disorder, recurrent episode with anxious distress F33.9 [place] [id number] [place] [address] 94542- 0226 Feb, Mood disorder F39 and BMI 40.0-44.9, adult Z68.41 [facility] [id number] [place] [address] 17768- 4743 Jan, [facility] [id number] [place] [address] 40825- 5772 Jan, [place] [id number] [place] [address] 71634- 3497 Jan, Hypothyroid E03.9 [place] [id number] [place] [address] 04190- 6439 Jan, [place] [id number] [place] [address] 83369- 9086 Jan, Chronic kidney disease, unspecified N18.9 ; Hypokalemia E87.6 ; Essential (primary) hypertension I10 ; Fibromyalgia M79.7 ; Coronary artery disease involving muscogee coronary artery of muscogee heart, angina presence unspecified I25.10 ; Hypothyroid E03.9 and Encounter for immunization Z23 [place] [id number] [place] [address] 83468- 0974 Jan, Hypothyroid E03.9 [place] [id number] [place] [address] 99668- 8514 Jan, [place] [id number] [place] [address] 19050- 3131 Dec, Vitamin D deficiency E55.9 [place] [id number] [place] [address] 86702- 1294 Dec, Primary osteoarthritis of left knee M17.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 [place] [id number] [place] [address] 83084- 6587 19 Dec, 2016 Fibromyalgia M79.7 [place] [id number] [place] [address] 14699- 9263 18 Dec, 2016 Mood disorder F39 [place] [id number] [place] [address] 12317- 6662 13 Dec, 2016 [place] [id number] [place] [address] 92645- 6014 13 Dec, 2016 Generalized anxiety disorder F41.1 and Major depressive disorder, recurrent episode with anxious distress F33.9 [place] [address] [place] [address]- 1095 11 Dec, 2016 [facility] [id number] [place] [address] 68652- 4894 08 Dec, 2016 Streptococcal meningitis G00.2 [facility] [id number] [place] [address] 48869- 0272 07 Dec, 2016 Streptococcal meningitis G00.2 [facility] [id number] [place] [address] 88150- 8481 07 Dec, 2016 [facility] [id number] [place] [address] 39733- 5844 06 Dec, 2016 Streptococcal meningitis G00.2 [facility] [id number] [place] [address] 99032- 0614 Dec, 2016 [facility] [id number] [place] [address] 41982- 7403 Dec, 2016 Major depressive disorder, recurrent episode with anxious distress F33.9 [facility] [id number] [place] [address] 49378- 3438 Nov, Fever, unspecified fever cause R50.9 [facility] [id number] [place] [address] 14440- 8456 24 Nov, 2016 [facility] [id number] [place] [address] 00244- 4536 Nov, Hypothyroid E03.9 [facility] [id number] [place] [address] 58900- 6157 Nov, Generalized anxiety disorder F41.1 and Major depressive disorder, recurrent episode with anxious distress F33.9 [facility] [id number] [place] [address] 78145- 5170 Nov, [facility] [id number] [id number] Oct, Dental examination Z01.20 [facility] [id number] [place] [address] 60334- 2934 Oct, Generalized anxiety disorder F41.1 and Major depressive disorder, recurrent episode with anxious distress F33.9 [place] [id number] [place] [address] 17093- 6688 Oct, Chronic kidney disease, stage 4 (severe) N18.4 [place] [id number] [place] [address] 20299- 5196 Oct, [place] [id number] [place] [address] 19076- 9700 Oct, Fibromyalgia M79.7 [place] [id number] [place] [address] 54473- 6341 Oct, [place] [id number] [place] [address] 46356- 2518 Oct, Generalized anxiety disorder F41.1 ; Major depressive disorder, recurrent episode with anxious distress F33.9 and Bipolar disorder, current episode manic without psychotic features F31.10 [place] [address] [address]- 2470 Sep, [place] [id number] [place] [address] 18166- 7922 Sep, [place] [id number] [place] [address] 59003- 7492 Sep, Vitamin D deficiency E55.9 [place] [address] [place] [address]- 8395 Sep, Vitamin D deficiency E55.9 [place] [id number] [place] [address] 69120- 254 Sep, [place] [id number] [place] [address] 62206- 6116 Sep, Chronic kidney disease, stage 4 (severe) N18.4 ; Hypothyroid E03.9 ; Restless leg G25.81 ; Fibromyalgia M79.7 ; Essential ( primary) hypertension I10 ; Vitamin D deficiency E55.9 ; Dyspepsia R10.13 ; Anemia in chronic kidney disease D63.1 ; Chronic kidney disease, unspecified N18.9 ; Coronary artery disease involving muscogee coronary artery of muscogee heart , angina presence unspecified I25.10 ; Screening breast examination Z12.39 and Low back pain M54.5 [place] [id number] [place] [address] 40998- 5396 August, Generalized anxiety disorder F41.1 and Major depressive disorder, recurrent episode with anxious distress F33.9 [place] [id number] [place] [address] 23474- 2019 August, Generalized anxiety disorder F41.1 and Major depressive disorder, recurrent episode with anxious distress F33.9 [place] [id number] [place] [address] 23271- 5780 August, Fibromyalgia M79.7 [place] [address] 81800- 2431 Jul, Generalized anxiety disorder F41.1 and Major depressive disorder, recurrent episode with anxious distress F33.9 [place] [id number] [place] [address] 01384- 1328 Jul, Fibromyalgia M79.7 [place] [id number] [place] [address] 96027- 8771 Jul, Generalized anxiety disorder F41.1 [place] [id number] [place] [address] 97180- 2951 May, [place] [id number] [place] [address] 07171- 9526 May, Hypothyroid E03.9 [place] [id number] [place] [address] 54482- 0644 May, Chronic kidney disease, stage 4 (severe) N18.4 ; Hypothyroid E03.9 ; Restless leg G25.81 ; Fibromyalgia M79.7 ; Essential ( primary) hypertension I10 ; Vitamin D deficiency E55.9 ; Dyspepsia R10.13 ; Acute non-recurrent maxillary sinusitis J01.00 ; Anemia in chronic kidney disease D63.1 ; Chronic kidney disease, unspecified N18.9 and Coronary artery disease involving muscogee coronary artery of muscogee heart, angina presence unspecified I25.10 [facility] [id number] [place] [address] 41713- 4875 May, Vitamin D deficiency, unspecified E55.9 [place] [id number] [place] [address] 92217- 5404 May, Generalized anxiety disorder F41.1 and Major depressive disorder, recurrent episode with anxious distress F33.9 [place] [id number] [place] [address] 18619- 3765 Apr, Pain in right knee M25.561 and Pain in left knee M25.562 [place] [id number] [place] [address] 49238- 2819 Apr, [place] [id number] [place] [address] 72579- 6969 Apr, [facility] [id number] [place] [address] 72029- 7079 Apr, [place] [id number] [place] [address] 07743- 2077 Mar, Generalized anxiety disorder F41.1 and Major depressive disorder, recurrent episode with anxious distress F33.9 [place] [id number] [place] [address] 59455- 0680 Mar, Generalized anxiety disorder F41.1 and Major depressive disorder, recurrent episode with anxious distress F33.9 [place] [id number] [place] [address] 47418- 2715 Mar, [facility] [id number] [place] [address] 32528- 2728 Mar, [place] [id number] [place] [address] 95422- 0236 Mar, [place] [id number] [place] [address] 16099- 6443 Mar, Asthma J45.909 and Fibromyalgia M79.7 [place] [id number] [place] [address] [id number] 2546 Mar, Chronic kidney disease, stage 4 (severe) N18.4 ; Vitamin D deficiency E55.9 and Essential (primary) hypertension I10 [place] [address] [address]- [address] Feb, [place] [address] [address]- [address] Feb, Dysuria R30.0 ; Mixed stress and urge urinary incontinence N39.46 ; Fibromyalgia M79.7 and Chronic kidney disease, stage IV (severe) N18.4 [place] [address] [address]- [address] Feb, Chronic kidney disease, stage 4 (severe) N18.4 [place] [address] [address]- [address]061 Feb, Chronic kidney disease, stage 4 (severe) N18.4 [place] [id number] [place] [address] 78171- [phone] Feb, [place] [id number] [place] [address] 93521- 1730 Feb, Vitamin D deficiency, unspecified E55.9 [place] [id number] [place] [address] [id number] 2546 Jan, [place] [address] [id number] 2546 Jan[address] [place] [id number] [place] [address] [id number] 2546 Dec, [place] [id number] [place] [address] [id number] 2540 Dec, Chronic kidney disease, stage 4 (severe) N18.4 [facility] [id number] [place] [address] [phone]- [phone] 28 Dec, 2015 Dysthymic 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 and Generalized anxiety disorder F41.1 [facility] [id number] [place] [address] [phone] Dec, [facility] [id number] [place] [address] 92069- 9113 Dec, [facility] [id number] [place] [address] 12676- 8302 Dec, Dysthymic 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 and Generalized anxiety disorder F41.1 [facility] [id number] [place] [address] 35429- 2550 Dec, Dysuria R30.0 ; Chronic kidney disease, stage 4 (severe) N18.4 ; Hypertension I10 ; Dyspepsia R10.13 ; Yeast dermatitis B37.2 ; Palpitations R00.2 ; Hypothyroid E03.9 ; Functional 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 and Other seasonal allergic rhinitis J30.2 [facility] [id number] [place] [address] 10149 -3433 Dec, [facility] [id number] [place] [address] 07431 -0657 Nov, Dysuria R30.0 and Stress incontinence N39.3 [facility] [id number] [place] [address] 85914- 7392 Nov, [facility] [id number] [place] [address] 88835- 6253 Nov, [facility] [id number] [place] [address] 98934- 8703 Nov, Osteoarthritis of knees, bilateral M17.0 [facility] [id number] [place] [address] 81438- 4391 Nov, Dysthymic 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 and Generalized anxiety disorder F41.1 [facility] [address] [address] 2367 Nov, [facility] [id number] [place] [address] 41314- 3230 Nov, [facility] [id number] [place] [address] 50188- 1101 Nov, Urgency of urination R39.15 [facility] [id number] [place] [address] 40777- 9966 Nov, [facility] [id number] [place] [address] 97944- 8666 Nov, Chronic kidney disease, stage 4 (severe) N18.4 [facility] [id number] [place] [address] 88429- 8734 Oct, Hypertension I10 ; Coronary artery disease involving muscogee coronary artery of muscogee heart, angina presence unspecified I25.10 ; Palpitations R00.2 ; Hypothyroid E03.9 ; Right foot pain M79.671 ; Functional 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 and Other seasonal allergic rhinitis J30.2 [facility] [id number] [place] [address] 19222- 8667 Oct, Dysthymic 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 and Generalized anxiety disorder F41.1 [facility] [id number] [place] [address] 85089- 9575 Sep, [facility] [id number] [place] [address] 31947- 4772 Sep, [facility] [id number] [place] [address] 91335- 9806 Sep, [facility] [id number] [place] [address] 48083- 3255 Sep, [facility] [id number] [place] [address] 55184- 3906 Sep, [facility] [address] [place] [address]- 0592 27 Sep, 2015 Dysthymic 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 and Generalized anxiety disorder F41.1 [facility] [address] 99198- 3575 16 Sep, 2015 Asthma with acute exacerbation in adult J45.901 ; Dysuria R30.0 ; Chronic kidney disease, stage 4 (severe) N18.4 and History of anemia Z86.2 [facility] [address] 94723- 1335 2015 Generalized anxiety disorder F41.1 and Dysthymic 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 25104- 9577 August, Screening breast examination Z12.39 and Acute recurrent maxillary sinusitis J01.[address] 42140- 7047 August, Osteoarthritis of knees, bilateral M17.[address] 87036- 9626 August, Chronic kidney disease, stage 4 (severe) N18.4 ; Acute non- recurrent maxillary sinusitis J01.00 ; Urinary problem R39.89 ; Bowel habit changes R19.4 ; Functional 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 and History of colon polyps Z86.010 [id number] [place] [address] 35167- 2760 Jul, Dysthymic 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 and Generalized anxiety disorder F41.1 [address] [id number] [place] [address] 03521- 9919 Jul, [address] 27140- 5086 Jul, Dysthymic 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 ; Generalized anxiety disorder F41.1 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.[address] 54681- 5570 Jul, [facility] [id number] [place] [address] 00207- 4886 Jun, [facility] [id number] [place] [address] 85013- 9691 Jun, [facility] [id number] [place] [address] 37725- 7042 May, [facility] [id number] [place] [address] 39537- 9409 May, Dysthymic 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 and Generalized anxiety disorder F41.1 [facility] [id number] [place] [address] 06976- 7492 Apr, Kidney disease N28.9 [facility] [id number] [place] [address] 24473- 7581 Apr, Generalized anxiety disorder F41.1 and Dysthymic 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 [facility] [id number] [place] [address] 85443- 5339 Apr, Chronic kidney disease, stage 4 (severe) N18.4 [facility] [id number] [place] [address] 61744- 1577 Apr, Generalized anxiety disorder F41.1 ; Major depression, recurrent F33.9 and Sleep disturbance G47.9 [facility] [id number] [place] [address] 59979- 8643 Mar, Generalized anxiety disorder F41.1 and Dysthymic 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 [facility] [id number] [place] [address] 04756- 7741 Mar, Generalized anxiety disorder F41.1 ; Dysthymic 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 and Insomnia G47.00 [facility] [id number] [place] [address] 72510- 6698 Mar, [facility] [id number] [place] [address] 32860- 6319 Mar, [facility] [id number] [place] [address] 87952- 5932 Mar, Osteoarthritis of knees, bilateral M17.0 [facility] [id number] [place] [address] 39882- 4057 Mar, Hypertension I10 ; Hypothyroid E03.9 ; Dysthymic 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 ; Chronic kidney disease, stage 4 (severe) N18.4 and Nausea & vomiting R11.2 [facility] [id number] [place] [address] 60955- 5184 Mar, Generalized anxiety disorder F41.1 ; Dysthymic 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 and Insomnia G47.00 [facility] [id number] [place] [address] 38988- 9936 Mar, Dehydration E86.0 ; Chronic kidney disease, stage 4 (severe ) N18.4 and Nausea & vomiting R11.2 [facility] [id number] [place] [address] 51836 -5665 Mar, Gastroenteritis K52.9 [facility] [address] 93893- 6506 Mar, [facility] [id number] [place] [address] 94042- 5063 Mar, [facility] [id number] [place] [address] 74963- 7672 Feb, Dysthymic 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 and Generalized anxiety disorder F41.1 [facility] [id number] [place] [address] 01911- 6351 Jan, UTI (urinary tract infection) N39.0 ; Asthma J45.909 ; Coronary artery disease involving muscogee coronary artery of muscogee heart, angina presence unspecified I25.10 ; Hypertension I10 ; Hypothyroid E03.9 ; Vitamin D deficiency E55.9 ; Insomnia G47.00 ; Palpitations R00.2 ; Depressed F32.9 ; Restless leg G25.81 and Anxiety F41.9 [facility] [id number] [place] [address] 47962- 5656 19 Jan, 2015 Dysthymic 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 and Generalized anxiety disorder F41.1 [facility] [id number] [place] [address] 18205- 2878 Jan, [facility] [id number] [place] [address] 91856- 0934 Dec, [facility] [id number] [place] [address] 08297- 7875 28 Dec, 2014 Alkalosis 276.3 ; Chronic kidney disease, 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.4 ; Hyperpotassemia 276.7 ; Secondary hyperparathyroidism, renal 588.81 ; Proteinuria 791.0 ; Unspecified vitamin D deficiency 268.9 ; Anemia in chronic kidney disease 285.21 ; Other and unspecified hyperlipidemia 272.4 ; Hypertension, essential, benign 401.1 and Chronic kidney disease (CKD), stage III (moderate) 585.3 [facility] [id number] [place] [address] 15660- 1936 Dec, [facility] [id number] [place] [address] 80274- 1201 16 Dec, 2014 Depressive disorder, not elsewhere classified 311 and Generalized anxiety disorder 300.02 [facility] [id number] [place] [address] 35848- 8089 10 Dec, 2014 [facility] [id number] [place] [address] 26324- 3326 08 Dec, 2014 [facility] [id number] [place] [address] 54112- 4768 Nov, Depressive disorder, not elsewhere classified 311 and Generalized anxiety disorder 300.02 [facility] [id number] [place] [address] 57392- 3378 Nov, Arthritis of both knees 716.96 [facility] [id number] [place] [address] 62564- 1042 Nov, PAF (paroxysmal atrial fibrillation) 427.31 ; CAD (coronary artery disease) 414.00 ; Chest pain 786.50 and Chronic kidney disease (CKD) stage G4/A1, severely decreased glomerular filtration rate (GFR) between 15-29 mL/min/1.73 square meter and albuminuria creatinine ratio less than 30 mg/g 585.4 [facility] [id number] [place] [address] 17886- 8007 Oct, Coronary atherosclerosis of unspecified type of vessel, muscogee or graft 414.00 ; Chronic kidney disease, 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.4 ; Hypertension 401.9 and Edema 782.[address] 65252- 1326 Oct, Depressive disorder, not elsewhere classified 311 and Generalized anxiety disorder 300.[address] 20734- 4821 Oct, Depressive disorder, not elsewhere classified 311 and Generalized anxiety disorder 300.02 [facility] [address] 01690- 2913 Oct, [address] 70729- 9271 Oct, [facility] [id number] [place] [address] 14648- 2272 Sep, [address] [id number] [place] [address] 50859- 3308 Sep, Chronic kidney disease, 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.4 [facility] [id number] [place] [address] 52684- 2010 Sep, [address] 28173- 6242 Sep, Coronary atherosclerosis of unspecified type of vessel, muscogee or graft 414.00 ; Hypertension 401.9 ; Edema 782.3 and Hypothyroidism 244.[address] 21072- 4780 Sep, Coronary atherosclerosis of unspecified type of vessel, muscogee or graft 414.00 ; Hypertension 401.9 ; Fibromyalgia 729.1 ; Edema 782.3 ; Hypothyroidism 244.9 and Anemia 285.9 [facility] [id number] [place] [address] 00975- 4540 Sep, Anxiety disorder, unspecified 300.00 and Depressive disorder , not elsewhere classified 311 [facility] [address] 45467- 4535 Sep, [facility] [address] 19689- 6814 August, Generalized anxiety disorder 300.02 [facility] [address] 55002- 4655 August, Closed fracture of lateral malleolus 824.2 [facility] [address] 35778- 1551 Jul, [facility] [address] 20389- 8813 Jul, [facility] [id number] [place] [address] 50351- 7669 Jun, [facility] [id number] [place] [address] 23662- 4653 Jun, [facility] [id number] [place] [address] 07367- 5467 Jun, [facility] [id number] [place] [address] 02846- 8686 Jun, [facility] [address] 20476- 8681 Jun, [facility] [id number] [place] [address] 47476- 9196 Jun, [facility] [id number] [place] [address] 66259- 7742 May, [facility] [place] [facility] [address] [id number] [place] [address]- 6417 19 May, 2014 [facility] [place] [facility] [address] [id number] [place] [address]- 2966 18 May, 2014 [facility] [place] [facility] [address] [id number] [place] [address] 2546 18 May, 2014 [facility] [place] [facility] [address] [id number] [place] [address]- 1136 16 May, 2014 [facility] [place] [facility] [address] [id number] [place] [address]- 9206 16 May, 2014 [facility] [place] [facility] [address] [id number] [place] [address]- 9836 13 May, 2014 [facility] [place] [facility] [address] [id number] [place] [address]- 5258 13 May, 2014 [facility] [place] [facility] [address] [id number] [place] [address]- 0113 10 May, 2014 [facility] [place] [facility] [address] [id number] [place] [address]- 4208 10 May, 2014 [facility] [place] [facility] [address] [facility] [id number] [place] [address]- 9845 Apr, [facility] [place] [facility] [address] [id number] [place] [address]- 3265 Apr, [facility] [place] [facility] [address] [id number] [place] [address]- 1187 Mar, [facility] [place] [facility] [address] [id number] [place] [address] 2546 Mar, [facility] [place] [facility] [address] [id number] [place] [address]- 2546 Mar, [facility] [place] [facility] [address] [id number] [place] [address]- 254 Mar, [facility] [place] [facility] [address] [id number] [place] [address]- 8975 15 Mar, 2014 [facility] [place] [facility] [address] [id number] [place] [address]- 9827 15 Mar, 2014 [facility] [place] [facility] [address] [id number] [place] [address]- 9711 Mar, [facility] [place] [facility] [address] [id number] [place] [address]- 1266 Feb, [facility] [place] [facility] [address] [id number] [place] [address]- 8261 Feb, [facility] [place] [facility] [address] [id number] [place] [address]- 0119 Feb, [facility] [place] [facility] [address] [id number] [place] [address]- 9791 Jan, [facility] [place] [facility] [address] [id number] [place] [address]- 7594 Jan, [facility] [place] [facility] [address] [id number] [place] [address]- 6514 Jan, [facility] [place] [facility] [address] [id number] [place] [address]- 8969 Jan, [facility] [place] [facility] [address] [id number] [place] [address]- 4194 Jan, [facility] [place] [facility] [address] [id number] [place] [address]- 6538 Jan, [facility] [place] [facility] [address] [id number] [address]- 7518 Jan, [facility] [place] [facility] [address] [id number], [place] [address]- 3808 Jan, [facility] [place] [facility] [address] [id number], [place] [address]- 3750 Jan, [facility] [place] [facility] [address] [id number], [place] [address]- 7762 Jan, [facility] [place] [facility] [address] [id number] [place] [address]- 0732 Nov, [facility] [place] [facility] [address] [id number] [place] [address]- 3667 Nov, [facility] [place] [facility] [address] [id number] [place] [address]- 8727 Nov, [facility] [place] [facility] [address] [id number] [place] [address]- 5770 Oct, [facility] [place] [facility] [address] [id number] [place] [address]- 9907 Oct, [facility] [place] [facility] [address] [id number] [place] [address]- 6018 Oct, [facility] [place] [facility] [address] [id number] [place] [address]- 3916 Oct, [facility] [place] [facility] [address] [id number] [place] [address]- 3527 Oct, [facility] [place] [facility] [address] [id number] [place] [address]- 1676 Oct, [facility] [place] [facility] [address] [id number] [place] [address]- 9642 Oct, [facility] [place] [facility] [address] [id number] [place] [address]- 7183 Oct, [facility] [place] [facility] [address] [id number] [place] [address]- 4037 Oct, [facility] [place] [facility] [address] [id number] [place] [address]- 4334 Sep, [facility] [place] [facility] [address] [id number] [place] [address]- 5780 Sep, [facility] [place] [facility] [address] [id number] [place] [address]- 0781 Sep, [facility] [place] [facility] [address] [id number] [place] [address]- 9387 Sep, [facility] [place] [facility] [address] [id number] [place] [address]- 0527 Sep, [facility] [place] [facility] [address] [id number] [place] [address]- 0282 Sep, [facility] [place] [facility] [address] [id number] [place] [address]- 9368 Sep, [facility] [place] [facility] [address] [id number] [place] [address]- 5032 Sep, [facility] [place] [facility] [address] [id number] [place] [address]- 9315 Sep, [facility] [place] [facility] [address] [id number] [place] [address]- 9239 August, [facility] [place] [facility] [address] [id number] [place] [address]- 0386 August, [facility] [place] [facility] [address] [id number] [place] [address]- 6863 August, [facility] [place] [facility] [address] [id number] [place] [address]- 3580 August, [facility] [place] [facility] [address] [id number] [place] [address]- 9311 August, [facility] [place] [facility] [address] [id number], [place] [address]- 3532 August, [facility] [place] [facility] [address] [id number], [place] [address]- 2631 Jul, [facility] [place] [facility] [address] [id number] [place] [address]- 6190 Jul, [facility] [place] [facility] [address] [id number] [place] [address]- 4993 Jul, [facility] [place] [facility] [address] [id number] [place] [address]- 8633 Jul, [facility] [place] [facility] [address] [id number] [place] [address]- 8367 07 Jul, 2013 [facility] [place] [facility] [address] [id number] [place] [address]- 9656 Jul, [facility] [place] [facility] [address] [id number] [place] [address]- 1556 Jun, [facility] [place] [facility] [address] [id number] [place] [address]- 3980 Jun, [facility] [place] [facility] [address] [id number] [place] [address]- 3331 May, [facility] [place] [facility] [address] [id number] [place] [address]- 9576 May, [facility] [place] [facility] [address] [id number] [place] [address]- 6156 May, [facility] [place] [facility] [address] [facility] [id number] [place] [address]- 0231 May, [facility] [place] [facility] [address] [id number] [place] [address]- 2547 Apr, [facility] [place] [facility] [address] [id number] [place] [address]- 1398 Apr, [facility] [place] [facility] [address] [facility] [id number] [place] [address]- 3498 Mar, [facility] [place] [facility] [address] [id number] [place] [address]- 1619 18 Mar, 2013 [facility] [place] [facility] [address] [id number] [place] [address] 2544 17 Mar, 2013 [facility] [place] [facility] [address] [id number] [place] [address]- 2626 Mar, [facility] [place] [facility] [address] [facility] [id number] [place] [address]- 4396 05 Mar, 2013 [facility] [place] [facility] [address] [facility] [id number] [place] [address]- 2919 Mar, [facility] [place] [facility] [address] [id number] [place] [address]- 4236 Feb, [facility] [place] [facility] [address] [id number] [place] [address]- 3892 Feb, [facility] [place] [facility] [address] [id number] [place] [address]- 0430 Feb, [facility] [place] [facility] [address] [id number] [place] [address]- 0942 Feb, [facility] [place] [facility] [address] [id number] [place] [address]- 6415 Feb, [facility] [place] [facility] [address] [id number] [place] [address]- 8572 Feb, [facility] [place] [facility] [address] [id number] [place] [address]- 7784 Jan, [facility] [place] [facility] [address] [id number] [place] [address]- 0036 Jan, [facility] [place] [facility] [address] [id number] [place] [address]- 6716 Jan, [facility] [place] [facility] [address] [id number] [place] [address] Jan, [facility] [place] [facility] [address] [id number] [place] [address] Jan, [facility] [place] [facility] [address] [id number], [place] [address] Jan, [facility] [place] [facility] [address] [id number] [place] [address] 12 Dec, 2012 [facility] [place] [facility] [address] [id number] [place] [address] 09 Dec, 2012 [facility] [place] [facility] [address] [id number] [place] [address] 16 Nov, 2012 [facility] [place] [facility] [address] [id number] [place] [address] Nov, [facility] [address] [id number] [place] [address] Oct, [facility] [place] [facility] [address] [id number] [place] [address] Oct, [facility] [address] [id number] [place] [address] Oct, [facility] [address] [id number] [place] [address] Oct, [facility] [address] [id number] [place] [address] Oct, [facility] [address] [id number] [place] [address] Oct, [facility] [address] [id number] [place] [address] Sep, [facility] [address] [id number] [place] [address] Sep, [facility] [address] [id number] [place] [address] Sep, [facility] [address] [id number] [place] [address] Sep, [facility] [address] [id number] [place] [address] August, [facility] [place] [facility] [address] [id number] [place] [address] August, [facility] [place] [facility] [address] [id number] [place] [address] August, [facility] [place] [facility] [address] [id number] [place] [address] August, [facility] [place] [facility] [address] [id number] [place] [address] August, [facility] [address] [id number] [place] [address] Jul, [facility] [address] [id number] [place] [address] Jul, [facility] [address] [id number] [place] [address] Jul, [facility] [address] [id number] [place] [address] Jul, [facility] [address] [id number] [place] [address] Jul, [facility] [address] [id number] [place] [address] Jul, [facility] [address] [id number] [place] [address] Jul, [facility] [address] [id number] [place] [address] Jul, [facility] [address] [id number] [place] [address] Jul, [facility] [address] [id number] [place] [address] Jul, [facility] [address] [id number] [id number] Jun, [facility] [address] [id number] [place] [address] Jun, [facility] [address] [id number] [place] [address] Jun, [facility] [place] [facility] [address] [id number] [place] [address] Jun, [facility] [place] [facility] [address] [id number] [place] [address] Jun, [facility] [address] [id number] [place] [address] May, [facility] [address] [id number] [place] [address] May, [facility] [place] [facility] [address] [id number] [place] [address] May, [facility] [address] [id number] [place] [address] Apr, [facility] [place] [facility] [address] [id number] [place] [address] Apr, [facility] [address] [id number] [place] [address] Apr, [facility] [place] [facility] [address] [id number] [place] [address] Apr, [facility] [address] [facility] [id number] [place] [address] Apr, [facility] [address] [id number] [place] [address] Apr, [facility] [address] [id number] [place] [address] Mar, [facility] [place] [facility] [address] [id number] [place] [address] Mar, [facility] [facility] [address] [id number], [place] [address] Mar, [facility] [place] [facility] [address] [id number], [place] [address] Mar, [facility] [place] [facility] [address] [id number] [place] [address] Feb, [facility] [place] [facility] [address] [id number] [place] [address] Feb, [facility] [place] [facility] [address] [facility] [id number] [place] [address] Feb, [facility] [place] [facility] [address] [id number] [place] [address] Feb, [facility] [place] [facility] [address] [id number] [place] [address] 29[address] Feb, [facility] [place] [facility] [address] [id number] [place] [address] 43[address] Feb, [facility] [place] [facility] [address] [id number] [place] [address] 2836 Feb, [facility] [place] [facility] [address] [id number] [place] [address] 12[address] Feb, [facility] [place] [facility] [address] [id number] [place] [address] 8768 Feb, [facility] [place] [facility] [address] [id number] [place] [address] 1400 Feb, [facility] [place] [facility] [address] [id number] [place] [address] 4[address] Feb, [facility] [place] [facility] [address] [id number] [place] [address]- 0744 Feb, [facility] [place] [facility] [address] [id number] [place] [address] 7037 Feb, [facility] [place] [facility] [address] [facility] [id number] [place] [address]- 0948 Feb, [facility] [place] [facility] [address] [id number] [place] [address] 9450 Feb, [facility] [place] [facility] [address] [id number], [place] [address] Feb, [facility] [place] [facility] [address] [id number] [place] [address]607 Jan, [facility] [place] [facility] [address] [id number] [place] [address] Jan, [facility] [place] [facility] [address] [id number], [place] [address] Jan, [facility] [place] [facility] [address] [id number] [place] [address]- 3973 31 Jan, 2012 [facility] [place] [facility] [address] [id number] [place] [address]- 5652 30 Jan, 2012 [facility] [place] [facility] [address] [id number] [place] [address]- [address] Jan, [facility] [place] [facility] [address] [id number] [place] [address]- 3296 25 Jan, 2012 [facility] [place] [facility] [address] [id number] [place] [address]- 9504 16 Jan, 2012 [facility] [place] [facility] [address] [id number] [place] [address]- 6969 16 Jan, 2012 [facility] [place] [facility] [address] [id number] [place] [address]- 4104 15 Jan, 2012 [facility] [place] [facility] [address] [id number] [place] [address]- 8317 15 Jan, 2012 [facility] [place] [facility] [address] [id number] [place] [address] 8704 Jan, [facility] [place] [facility] [address] [id number] [place] [address]- 8003 26 Dec, 2011 [facility] [place] [facility] [address] [id number] [place] [address]- 7348 26 Sep2011 [facility] [place] [facility] [address] [id number] [place] [address] 8820 24 Sep2011 [facility] [place] [facility] [address] [id number] [place] [address]- 4854 23 Sep2011 [facility] [place] [facility] [address] [id number] [place] [address]- 2543 22 Sep2011 [facility] [place] [facility] [address] [id number] [place] [address]- 5257 21 Sep2011 [facility] [place] [facility] [address] [id number] [place] [address]- 4140 20 Dec, 2011 [facility] [place] [facility] [address] [id number] [place] [address]- 3944 20 Dec, 2011 [facility] [place] [facility] [address] [id number] [place] [address]- 9186 07 Dec, 2011 [facility] [place] [facility] [address] [id number] [place] [address]- 9966 06 Dec, 2011 [facility] [place] [facility] [address] [id number] [place] [address] 06 Dec, 2011 [facility] [place] [facility] [address] [id number] [place] [address]- 3330 05 Dec, 2011 [facility] [place] [facility] [address] [id number] [place] [address]- 5282 23 Nov, 2011 [facility] [place] [facility] [address] [id number] [place] [address]- 2494 17 Nov, 2011 [facility] [place] [facility] [address] [id number] [place] [address]- 4725 13 Nov, 2011 [facility] [place] [facility] [address] [id number] [place] [address]- 2557 Nov, [facility] [place] [facility] [address] [id number] [place] [address] 0732 Nov, [facility] [facility] [address] [id number] [place] [address]- 8880 Nov, [facility] [address] [id number] [place] [address]- 3782 Nov, [facility] [address] [id number] [place] [address]- 1156 Nov, [facility] [address] [id number] [place] [address]- 6632 Oct, [facility] [address] [id number] [place] [address]- 0933 Oct, [facility] [address] [id number] [place] [address]- 3931 Oct, [facility] [address] [id number] [place] [address] 9871 Oct, [facility] [address] [id number] [place] [address] 1896 Oct, [facility] [address] [id number] [place] [address]- 0438 Oct, [facility] [address] [id number] [place] [address] 0490 Oct, [facility] [address] [id number] [place] [address] 9749 Sep, [facility] [address] [id number] [place] [address] 3544 Sep, [facility] [address] [id number] [place] [address] 5831 August, [facility] [address] [id number] [place] [address] 1313 August, [facility] [address] [id number] [place] [address]- 7822 August, [facility] [address] [id number] [place] [address] 8861 August, [facility] [address] [id number] [place] [address]- 4999 Jul, [facility] [address] [id number] [place] [address]- 5566 Jul, [facility] [address] [id number] [place] [address]- [address]235 Jul, [facility] [address] [id number] [place] [address]- 3716 Jul, [facility] [address] [id number] [place] [address]- 9168 Jul, [facility] [address] [id number] [place] [address]- 1354 Jul, [facility] [address] [id number] [place] [address]- 1756 Jul, [facility] [facility] [address] [id number] [place] [address]- 0106 Jul, [facility] [address] [id number] [place] [address]- 1476 Jul, [facility] [address] [id number] [place] [address]- 7724 Jun, [facility] [address] [id number] [place] [address]- 7666 Jun, [facility] [address] [id number] [place] [address]- 3636 15 Jun, 2011 [facility] [address] [id number] [place] [address]- 6989 14 Jun, 2011 [facility] [facility] [address] [id number] [place] [address]- 5920 Jun, [facility] [address] [id number] [place] [address]- 3490 Jun, [facility] [address] [id number] [place] [address]- 6596 Jun, [facility] [address] [id number], [place] [address] 9316 May, [facility] [address] [id number] [place] [address]- 8427 24 May, 2011 [facility] [address] [id number] [place] [address]- 6436 May, [facility] [address] [id number] [place] [address]- 3796 May, [facility] [address] [id number] [place] [address]- 0596 03 May, 2011 [facility] [address] [id number] [place] [address]- 7096 Apr, [facility] [address] [id number] [place] [address]- 3956 Apr, [facility] [address] [id number] [place] [address]- 7826 Apr, [facility] [address] [id number] [place] [address]- 9337 Apr, [facility] [address] [id number] [place] [address]- 3236 Apr, [facility] [address] [id number] [place] [address]- 1539 Mar, [facility] [address] [id number] [place] [address]- 8665 Mar, [facility] [address] [id number] [place] [address]- 4581 Mar, [facility] [address] [id number] [place] [address]- 4975 Mar, [facility] [address] [facility] [id number] [place] [address]- 5356 Mar, [facility] [address] [id number] [place] [address]- 9656 Mar, [facility] [facility] [address] [id number] [place] [address]- 2546 Mar, [facility] [address] [id number] [place] [address]- 2024 Feb, [facility] [address] [id number] [place] [address]- 6496 Feb, [facility] [address] [id number] [place] [address]- 3992 Feb, [facility] [address] [id number] [place] [address]- 3131 Feb, [facility] [address] [id number] [place] [address]- 4898 Jan, [facility] [address] [id number] [place] [address]- 8066 Jan, [facility] [address] [id number] [place] [address]- 3002 Jan, [facility] [address] [id number] [place] [address]- 2687 Jan, [facility] [address] [id number] [place] [address]- 0524 Nov, [facility] [address] [id number] [place] [address]- 1120 Mar, [facility] [address] [id number] [place] [address]- 9542 Mar, [facility] [address] [id number] [place] [address]- 8406 Mar, [facility] [address] [id number] [place] [address]- 6222 Mar, [facility] [address] [id number] [place] [address]- 4185 Mar, [facility] [address] [id number] [place] [address]- 3858 Mar, [facility] [place] [facility] [address] [id number] [place] [address]- 0043 Feb, [facility] [place] [address] [id number] [place] [address]- 5922 Feb, [facility] [address] [id number] [place] [address]- 1964 Jan, [facility] [address] [id number] [place] [address]- 9762 14 Jan, 2009 [facility] [address] [facility] [id number] [place] [address]- 4108 Jan, IMMUNIZATIONS No Known Immunizations SOCIAL HISTORY Never Assessed REASON FOR VISIT REFERRAL REQUEST PLAN OF CARE VITAL SIGNS MEDICATIONS Unknown [...] 2020 & 2007 Surgical History Bladder surgery [facility] 03/2016 Surgical History 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
--- OUTSIDE RECORDS SUMMARY | 2018-05-29 07:34 | XMS REPORT ---
Author Author KEIRA FORD [facility] Address [address] [place] [address] Care Team Providers Care Ceiling Cleaner Name Role Phone KEIRA FORD Unavailable PROBLEMS Type Condition ICD9-CM Code [id number] Code Onset Dates Condition Status SNOMED Code Problem Generalized anxiety disorder F41.1 Active 02428111 Problem Low back pain M54.5 Active 803656422 Problem Coronary artery disease involving havasupai coronary artery of havasupai heart, angina presence unspecified I25.10 Active [id number] Problem Dysthymic 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 Active 25736822 Problem Restless leg G25.81 Active 71785129 Problem Hypothyroid E03.9 Active 39222825 Problem Insomnia G47.00 Active 009985799 Problem Asthma J45.909 Active 191836623 Problem Palpitations R00.2 Active 76339193 Problem Anemia in chronic kidney disease D63.1 Active [id number] Problem Depressed F32.9 Active 94275926 Problem Bipolar disorder, current episode manic without psychotic features F31.10 Active 685614713 Problem Chronic kidney disease, stage 4 (severe) N18.4 Active 098071501 Problem Degenerative tear of medial meniscus of left knee M23.204 Active 403741127 Problem Mood disorder F39 Active 97374210 Problem Primary osteoarthritis of left knee M17.12 Active 291663657 Problem Perimenopausal vasomotor symptoms N95.1 Active 205907851 Problem Chronic pain syndrome G89.4 Active 983899956 Problem Asthma with acute exacerbation in adult J45.901 Active 838237638 Problem History of colon polyps Z86.010 Active 214588459 Problem Functional 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 Active 30658450 Problem Body mass index (BMI) of 40.0-44.9 in adult Z68.41 Active 852258405 Problem Stage 3 chronic kidney disease N18.3 Active 003878852 Problem Restless leg syndrome G25.81 Active 99436078 Problem Seasonal allergic rhinitis due to pollen J30.1 Active 47666855 Problem Long-term use of high-risk medication Z79.899 Active 750791351 Problem Hypokalemia E87.6 Active 12268123 Problem Abnormal chest CT R93.8 Active 763780883 Problem Fibromyalgia M79.7 Active 982037068 Problem History of anemia Z86.2 Active 370126655 Problem Other seasonal allergic rhinitis J30.2 Active 223956647 Problem Essential (primary) hypertension I10 Active 35706751 Problem Chronic kidney disease, unspecified N18.9 Active 017202133 Problem Mixed stress and urge urinary incontinence N39.46 Active 672535378 Problem Vitamin D deficiency E55.9 Active 66110899 ALLERGIES No Information ENCOUNTERS Encounter Location Date Diagnosis [place] [address] 27[address]- [address]463 Mar, [place] [address] 36262- 0022 Feb, [place] [address] 53939- 8243 Jan, Generalized anxiety disorder F41.1 and Major depressive disorder, recurrent episode with anxious distress F33.9 [facility] [address] 39[address] -[address]871 Jan, Acute conjunctivitis of left eye, unspecified acute conjunctivitis type H10.32 [place] [address] 51971- 1937 Jan, [place] [address] 54899- 1046 Jan, Acute non-recurrent maxillary sinusitis J01.00 ; Dysuria R30.0 ; Perimenopausal vasomotor symptoms N95.1 and Fibromyalgia M79.7 [place] [address] 94192- 9751 Dec, Vitamin D deficiency E55.9 [facility] [address] 18919- 6505 Dec, Vitamin D deficiency E55.9 [facility] [id number] [place] [address] 57296- 3729 Dec, Vitamin D deficiency E55.9 [facility] [address] [place] [id number] [place] [address] 02533- 6219 Dec, [facility] [address] [place] [id number] [place] [address] 60261- 1457 Dec, Fibromyalgia M79.7 [facility] [address] [place] [id number] [place] [address] 65139- 2625 Nov, [place] [address] 22558- 5117 Nov, [facility] [address] 48196- 6750 Nov, [place] [address] 83136- 8704 Nov, Fibromyalgia M79.7 ; Vision changes H53.9 ; Chest wall pain R07.89 and Chronic pain syndrome G89.4 [place] [address] [place] [id number] [place] [address] 67137- 1346 Nov, [facility] [address] [place] [id number] [place] [address] 91416- 4967 Nov, Rash of hands R21 [place] [address] [place] [id number] [place] [address] 55663- 0460 Nov, Generalized anxiety disorder F41.1 and Major depressive disorder, recurrent episode with anxious distress F33.9 [place] [address] [place] [id number] [place] [address] 75519- 7642 Nov, Fibromyalgia M79.7 [facility] [address] [place] [id number] [place] [address] 72043- 8006 Nov, Complicated UTI (urinary tract infection) N39.0 [facility] [address] [place] [id number] [place] [address] 50222- 9065 Oct, [facility] [id number] [place] [address] 05578- 1210 Oct, Generalized anxiety disorder F41.1 and Major depressive disorder, recurrent episode with anxious distress F33.9 [facility] [address] [place] [id number] [place] [address] 34068- 6526 Oct, [facility] [address] [place] [id number] [place] [address] 40689- 8737 Oct, Fibromyalgia M79.7 [place] [address] [place] [id number] [place] [address] 26133- 8169 Sep, Restless leg syndrome G25.81 and Restless leg G25.81 [place] [address] [place] [id number] [place] [address] 09763- 4120 Sep, [place] [address] [place] [id number] [place] [address] 03624- 7944 Sep, Seasonal allergic rhinitis due to pollen J30.1 ; Screening for breast cancer Z12.31 ; Chest pain at rest R07.9 ; Restless leg syndrome G25.81 ; Essential (primary) hypertension I10 and Depressed F32.9 [place] [address] [place] [id number] [place] [address] 39521- 9045 August, Fibromyalgia M79.7 [place] [address] [place] [id number] [place] [address] 83089- 0514 August, [facility] [address] [place] [id number] [place] [address] 95580- 4350 August, [facility] [address] [place] [id number] [place] [address] 80160- 135[address] August, Abnormal chest [address] R93.8 [facility] [address] [place] [id number] [place] [address] 03213- 9923 August, Generalized anxiety disorder F41.1 and Major depressive disorder, recurrent episode with anxious distress F33.9 [place] [address] [place] [id number] [place] [address] 88038- [address] August, Ab[address] chest [address] R93.8 [place] [address] [place] [id number] [place] [address] 91472- 4620 Jul, [place] [address] [place] [id number] [place] [address] 28477- 1088 Jul, Chronic kidney disease, stage 4 (severe) N18.4 [place] [address] [place] [id number] [place] [address] 47017- 7715 Jul, [place] [address] [place] [id number] [place] [address] 65835- 1527 Jul, Restless leg G25.81 ; Mixed stress and urge urinary incontinence N39.46 and Fibromyalgia M79.7 [place] [address] [place] [id number] [place] [address] 03825- 8605 Jul, Chronic kidney disease, stage 4 (severe) N18.4 [place] [address] [place] [id number] [place] [address] 25563- 8771 Jun, Orthostatic hypotension I95.1 ; Chronic kidney disease, stage 4 (severe) N18.4 ; Chest wall discomfort R07.89 and Body mass index (BMI) of 40.0-44.9 in adult Z68.41 [place] [address] [place] [id number] [place] [address] 35985- 2716 Jun, [place] [address] [place] [id number] [place] [address] 40201- 6313 Jun, Orthostatic hypotension I95.1 [place] [address] [place] [id number] [place] [address] 44691- 6738 Jun, [facility] [address] [place] [id number] [place] [address] 60727 -9700 Jun, Orthostatic hypotension I95.1 ; Dysuria R30.0 and Acute cystitis without hematuria N30.00 [place] [address] [place] [id number] [place] [address] 64740- 0095 Jun, [facility] [address] [address] 3274 Jun, Chronic kidney disease, stage 4 (severe) N18.4 [facility] [address] [place] [id number] [place] [address] 11142 2546 Jun, Fibromyalgia M79.7 [facility] [address] [place] [id number] [place] [address] 12052 2546 Jun, [facility] [address] [place] [id number] [place] [address] 83938 2546 Jun, [facility] [address] [place] [id number] [place] [address] 68568- [address] May, [address] R93.8 and Stage 3 chronic kidney disease N18.3 [facility] [address] [place] [id number] [place] [address] 40156- 1043 May, Chronic kidney disease, stage 4 (severe) N18.4 [facility] [address] [place] [id number] [place] [address] 10052 254 May, Chronic kidney disease, stage 4 (severe) N18.4 [facility] [address] [place] [id number] [place] [address] 16764- 1666 May, Ab[address] chest [address] R93.8 [facility] [id number] [place] [address] 03959 2546 May, [facility] [address] [place] [id number] [place] [address] 33498- 2546 May, [facility] [address] [place] [id number] [place] [address] 35623- 9476 May, Generalized anxiety disorder F41.1 and Major depressive disorder, recurrent episode with anxious distress F33.9 [facility] [id number] [place] [address] 49408- 6286 May, Mood disorder F39 [facility] [address] [address]- 9103 Apr, [facility] [id number] [place] [address] 09289- 4507 Apr, Infected skin lesion L08.9 and Muscle strain of right shoulder region, initial encounter S46.911A [facility] [address] [place] [id number] [place] [address] 97007- 0754 Apr, Generalized anxiety disorder F41.1 and Major depressive disorder, recurrent episode with anxious distress F33.9 [facility] [id number] [place] [address] 01472- 6595 Apr, [place] [address] [place] [id number] [place] [address] 46927- 1868 Apr, Recent urinary tract infection Z87.440 and Hypothyroid E03.9 [place] [address] [place] [id number] [place] [address] 62350- 2741 Apr, Generalized anxiety disorder F41.1 and Major depressive disorder, recurrent episode with anxious distress F33.9 [place] [id number] [place] [address] 73563- 6714 Apr, Recent urinary tract infection Z87.440 [facility] [id number] [place] [address] 20207- 7659 Mar, [facility] [id number] [place] [address] 52454 -0937 Mar, Dysuria R30.0 ; Acute cystitis without hematuria N30.00 and BMI 40.0-44.9, adult Z68.41 [facility] [id number] [place] [address] 64030- 0923 Mar, [facility] [id number] [place] [address] 37017- 7337 Mar, [facility] [id number] [place] [address] 90552- 0035 Mar, Generalized anxiety disorder F41.1 and Major depressive disorder, recurrent episode with anxious distress F33.9 [facility] [id number] [place] [address] 25043- 0734 Feb, Conjunctivitis, bacterial H10.9 [facility] [address] [place] [id number] [place] [address] 82058- 1230 Feb, [facility] [address] [place] [id number] [place] [address] 48265 -3987 Feb, Conjunctivitis, bacterial H10.9 [facility] [address] [place] [id number] [place] [address] 17377- 4475 Feb, [facility] [address] [place] [id number] [place] [address] 27280 -7510 Feb, Dysuria R30.0 ; Acute cystitis N30.00 and BMI 40.0-44.9, adult Z68.41 [place] [address] [place] [id number] [place] [address] 65269- 4703 Feb, [place] [address] [place] [id number] [place] [address] 51152- 8889 Feb, Generalized anxiety disorder F41.1 and Major depressive disorder, recurrent episode with anxious distress F33.9 [place] [address] [place] [id number] [place] [address] 33496- 0847 Feb, Mood disorder F39 and BMI 40.0-44.9, adult Z68.41 [place] [address] [place] [id number] [place] [address] 27776- 5487 Jan, [place] [address] [place] [id number] [place] [address] 36017- 9333 Jan, [place] [address] 34641- 4223 Jan, Hypothyroid E03.9 [place] [address] [place] [id number] [place] [address] 23953- 2341 Jan, [place] [address] [place] [id number] [place] [address] 88392- 5084 Jan, Chronic kidney disease, unspecified N18.9 ; Hypokalemia E87.6 ; Essential (primary) hypertension I10 ; Fibromyalgia M79.7 ; Coronary artery disease involving havasupai coronary artery of havasupai heart, angina presence unspecified I25.10 ; Hypothyroid E03.9 and Encounter for immunization Z23 [place] [address] 53175- 1507 Jan, Hypothyroid E03.9 [place] [address] 52724- 7757 Jan, [place] [address] 68286- 5257 Dec, Vitamin D deficiency E55.9 [place] [address] [place] [id number] [place] [address] 43328- 7752 Dec, Primary osteoarthritis of left knee M17.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 [place] [address] [place] [id number] [place] [address] 57172- 2991 19 Dec, 2016 Fibromyalgia M79.7 [place] [address] [place] [id number] [place] [address] 66581- 6083 18 Dec, 2016 Mood disorder F39 [place] [address] [place] [id number] [place] [address] 64249- 8676 13 Dec, 2016 [place] [address] [place] [id number] [place] [address] 91029- 4579 13 Dec, 2016 Generalized anxiety disorder F41.1 and Major depressive disorder, recurrent episode with anxious distress F33.9 [place] [address] 04168- 3483 11 Dec, 2016 [place] [address] [place] [id number] [place] [address] 41316- 4595 08 Dec, 2016 Streptococcal meningitis G00.2 [place] [address] [place] [id number] [place] [address] 65230- 6115 07 Dec, 2016 Streptococcal meningitis G00.2 [facility] [id number] [place] [address] 49382- 5529 07 Dec, 2016 [facility] [address] [place] [id number] [place] [address] 37471- 1640 Dec, Streptococcal meningitis G00.2 [facility] [address] [place] [id number] [place] [address] 93236- 3893 Dec, [place] [address] [place] [id number] [place] [address] 80740- 0023 Dec, Major depressive disorder, recurrent episode with anxious distress F33.9 [place] [address] [place] [id number] [place] [address] 17393- 0423 Nov, Fever, unspecified fever cause R50.9 [place] [address] [place] [id number] [place] [address] 50166- 9538 Nov, [place] [address] [place] [id number] [place] [address] 73125- 2355 Nov, Hypothyroid E03.9 [place] [address] [place] [id number] [place] [address] 68381- 6113 Nov, Generalized anxiety disorder F41.1 and Major depressive disorder, recurrent episode with anxious distress F33.9 [facility] [id number] [place] [address] 18906- 0794 Nov, [facility] [id number] [place] [address] [id number] Oct, Dental examination Z01.20 [facility] [address] [place] [id number] [place] [address] 59471- 7154 Oct, Generalized anxiety disorder F41.1 and Major depressive disorder, recurrent episode with anxious distress F33.9 [facility] [id number] [place] [address] 55602- 1633 Oct, Chronic kidney disease, stage 4 (severe) N18.4 [place] [address] [place] [id number] [place] [address] 79553- 7771 Oct, [place] [address] [place] [id number] [place] [address] 61994- 9005 Oct, Fibromyalgia M79.7 [place] [address] [place] [id number] [place] [address] 65902- 5157 Oct, [place] [address] [place] [id number] [place] [address] 87331- 3128 Oct, Generalized anxiety disorder F41.1 ; Major depressive disorder, recurrent episode with anxious distress F33.9 and Bipolar disorder, current episode manic without psychotic features F31.10 [place] [address] [place] [id number] [place] [address] 33006- 7823 Sep, [place] [address] [place] [id number] [place] [address] 93958- 3988 Sep, [place] [address] [place] [id number] [place] [address] 43318- 6186 15 Sep, 2016 Vitamin D deficiency E55.9 [place] [address] [place] [id number] [place] [address] 35216- 6305 Sep, Vitamin D deficiency E55.9 [place] [address] [place] [id number] [place] [address] 63239- 0602 Sep, [place] [address] [place] [id number] [place] [address] 75006- 4265 Sep, Chronic kidney disease, stage 4 (severe) N18.4 ; Hypothyroid E03.9 ; Restless leg G25.81 ; Fibromyalgia M79.7 ; Essential ( primary) hypertension I10 ; Vitamin D deficiency E55.9 ; Dyspepsia R10.13 ; Anemia in chronic kidney disease D63.1 ; Chronic kidney disease, unspecified N18.9 ; Coronary artery disease involving havasupai coronary artery of havasupai heart , angina presence unspecified I25.10 ; Screening breast examination Z12.39 and Low back pain M54.5 [place] [id number] [place] [address] 85322- 0171 August, Generalized anxiety disorder F41.1 and Major depressive disorder, recurrent episode with anxious distress F33.9 [place] [address] [place] [id number] [place] [address] 37106- 4938 August, Generalized anxiety disorder F41.1 and Major depressive disorder, recurrent episode with anxious distress F33.9 [place] [address] [place] [id number] [place] [address] 21971- 9009 August, Fibromyalgia M79.7 [place] [address] [place] [id number] [place] [address] 10667- 3626 Jul, Generalized anxiety disorder F41.1 and Major depressive disorder, recurrent episode with anxious distress F33.9 [place] [address] [place] [id number] [place] [address] 94847- 9044 Jul, Fibromyalgia M79.7 [place] [address] [place] [id number] [place] [address] 98424- 8391 Jul, Generalized anxiety disorder F41.1 [place] [address] [place] [id number] [place] [address] 22154- 2319 May, [place] [address] [place] [id number] [place] [address] 66857- 7744 May, Hypothyroid E03.9 [place] [id number] [place] [address] 52538- 0030 May, Chronic kidney disease, stage 4 (severe) N18.4 ; Hypothyroid E03.9 ; Restless leg G25.81 ; Fibromyalgia M79.7 ; Essential ( primary) hypertension I10 ; Vitamin D deficiency E55.9 ; Dyspepsia R10.13 ; Acute non-recurrent maxillary sinusitis J01.00 ; Anemia in chronic kidney disease D63.1 ; Chronic kidney disease, unspecified N18.9 and Coronary artery disease involving havasupai coronary artery of havasupai heart, angina presence unspecified I25.10 [place] [address] [place] [id number] [place] [address] 30579- 0648 May, Vitamin D deficiency, unspecified E55.9 [facility] [id number] [place] [address] 54920- 1116 May, Generalized anxiety disorder F41.1 and Major depressive disorder, recurrent episode with anxious distress F33.9 [facility] [address] [place] [id number] [place] [address] 30641- 6716 Apr, Pain in right knee M25.561 and Pain in left knee M25.562 [facility] [address] [place] [id number] [place] [address] 68856- 3576 Apr, [facility] [address] [place] [id number] [place] [address] 77768- 9640 Apr, [facility] [address] [id number] [place] [address] 59698- 8395 Apr, [facility] [address] [place] [id number] [place] [address] 26985- 1240 Mar, Generalized anxiety disorder F41.1 and Major depressive disorder, recurrent episode with anxious distress F33.9 [facility] [id number] [place] [address] 93788- 1686 Mar, Generalized anxiety disorder F41.1 and Major depressive disorder, recurrent episode with anxious distress F33.9 [facility] [id number] [place] [address] 48919- 1196 Mar, [facility] [address] [id number] [place] [address] 58747 2546 Mar, [facility] [id number] [place] [address] 95549- 8076 Mar, [facility] [address] [id number] [place] [address] 55378- 6407 Mar, Asthma J45.909 and Fibromyalgia M79.7 [facility] [address] [id number] [place] [address] 01021- 7963 Mar, Chronic kidney disease, stage 4 (severe) N18.4 ; Vitamin D deficiency E55.9 and Essential (primary) hypertension I10 [place] [address] 23807- 2875 Feb, [facility] [address] [id number] [place] [address] 74278 2541 Feb, Dysuria R30.0 ; Mixed stress and urge urinary incontinence N39.46 ; Fibromyalgia M79.7 and Chronic kidney disease, stage IV (severe) N18.4 [facility] [address] [id number] [place] [address] 79573- 7781 Feb, Chronic kidney disease, stage 4 (severe) N18.4 [place] [address] [address] Feb, Chronic kidney disease, stage 4 (severe) N18.4 [place] [address] [address] Feb, [facility] [address] [address] Feb, Vitamin D deficiency, unspecified E55.9 [place] [id number] [place] [address] [id number] [address] Jan, [facility] [id number] [place] [id number] 2545 Jan, [facility] [id number] [place] [id number] 2545 Dec, [facility] [id number] [place] [id number] 2548 Dec, Chronic kidney disease, stage 4 (severe) N18.4 [facility] [id number] [place] [id number] 2544 Dec, Dysthymic 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 and Generalized anxiety disorder F41.1 [place] [address] [place] [address] Dec, [facility] [address] [address]- [address] Dec, [place] [address] [address]- [address] Dec, Dysthymic 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 and Generalized anxiety disorder F41.1 [place] [address] [address]- [address] Dec, Dysuria R30.0 ; Chronic kidney disease, stage 4 (severe) N18.4 ; Hypertension I10 ; Dyspepsia R10.13 ; Yeast dermatitis B37.2 ; Palpitations R00.2 ; Hypothyroid E03.9 ; Functional 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 and Other seasonal allergic rhinitis J30.2 [facility] [facility] [address] [address] Dec, [facility] IN [facility] [address] [address] Nov, Dysuria R30.0 and Stress incontinence N39.3 [place] [address] [address]- 6671 Nov, [place] [address] 00261- 8098 Nov, [place] [address] 40852- 1177 Nov, Osteoarthritis of knees, bilateral M17.0 [facility] [address] [address]29- 5812 Nov, Dysthymic 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 and Generalized anxiety disorder F41.1 [place] [address] 98868- 9955 Nov, [facility] [address] 84969- 8430 Nov, [place] [address] [place] [id number] [place] [address] 09961- 3187 Nov, Urgency of urination R39.15 [place] [address] 41739- 2226 Nov, [place] [address] [place] [id number] [place] [address] 41813- 6947 Nov, Chronic kidney disease, stage 4 (severe) N18.4 [place] [address] 07040- 8437 Oct, Hypertension I10 ; Coronary artery disease involving havasupai coronary artery of havasupai heart, angina presence unspecified I25.10 ; Palpitations R00.2 ; Hypothyroid E03.9 ; Right foot pain M79.671 ; Functional 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 and Other seasonal allergic rhinitis J30.2 [place] [address] 24611- 2450 Oct, Dysthymic 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 and Generalized anxiety disorder F41.1 [place] [address] 69817- 9545 Sep, [place] [address] 80143- 5939 Sep, [place] [address] [place] [id number] [place] [address] 68971- 0304 Sep, [place] [address] [place] [id number] [place] [address] 07757- 3650 Sep, [place] [address] [place] [id number] [place] [address] 45934- 8019 Sep, [facility] [address] 88818- 2167 Sep, Dysthymic 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 and Generalized anxiety disorder F41.1 [facility] [address] [place] [id number] [place] [address] 68660- 6727 Sep, Asthma with acute exacerbation in adult J45.901 ; Dysuria R30.0 ; Chronic kidney disease, stage 4 (severe) N18.4 and History of anemia Z86.2 [place] [address] 75277- 6143 Sep, Generalized anxiety disorder F41.1 and Dysthymic 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 [place] [address] 48000- 5525 August, Screening breast examination Z12.39 and Acute recurrent maxillary sinusitis J01.01 [place] [address] 94429- 7437 August, Osteoarthritis of knees, bilateral M17.0 [place] [address] 37589- 5300 August, Chronic kidney disease, stage 4 (severe) N18.4 ; Acute non- recurrent maxillary sinusitis J01.00 ; Urinary problem R39.89 ; Bowel habit changes R19.4 ; Functional 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 and History of colon polyps Z86.010 [place] [address] [place] [id number] [place] [address] 75071- 5823 Jul, Dysthymic 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 and Generalized anxiety disorder F41.1 [place] [address] [place] [id number] [place] [address] 04322- 7367 Jul, [place] [address] 91671- 3381 Jul, Dysthymic 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 ; Generalized anxiety disorder F41.1 and 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 [place] [address] 71204- 7727 Jul, [place] [address] 94750- 5224 Jun, [place] [address] 66093- 0899 Jun, [place] [address] [place] [id number] [place] [address] 71501- 6177 May, [place] [address] 87996- 6626 May, Dysthymic 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 and Generalized anxiety disorder F41.1 [place] [address] 21976- 0579 Apr, Kidney disease N28.9 [place] [address] 27647- 3377 Apr, Generalized anxiety disorder F41.1 and Dysthymic 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 [place] [address] 82955- 9740 Apr, Chronic kidney disease, stage 4 (severe) N18.4 [place] [address] 00143- 3477 Apr, Generalized anxiety disorder F41.1 ; Major depression, recurrent F33.9 and Sleep disturbance G47.9 [place] [address] [place] [id number] [place] [address] 28999- 7404 Mar, Generalized anxiety disorder F41.1 and Dysthymic 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 [place] [address] [place] [id number] [place] [address] 10647- 8185 Mar, Generalized anxiety disorder F41.1 ; Dysthymic 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 and Insomnia G47.00 [place] [address] [place] [id number] [place] [address] 90156- 9289 Mar, [place] [address] [place] [id number] [place] [address] 50512- 0267 Mar, [place] [address] 24978- 6367 Mar, Osteoarthritis of knees, bilateral M17.0 [place] [address] 58038- 8406 Mar, Hypertension I10 ; Hypothyroid E03.9 ; Dysthymic 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 ; Chronic kidney disease, stage 4 (severe) N18.4 and Nausea & vomiting R11.2 [place] [address] [place] [id number] [place] [address] 66738- 3118 Mar, Generalized anxiety disorder F41.1 ; Dysthymic 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 and Insomnia G47.00 [place] [address] 91162- 0477 Mar, Dehydration E86.0 ; Chronic kidney disease, stage 4 (severe ) N18.4 and Nausea & vomiting R11.2 [facility] IN [facility] [address] 15702 -0575 Mar, Gastroenteritis K52.[address] 72643- 1613 Mar, [address] 68312- 8625 Mar, [address] 63721- 5651 Feb, Dysthymic 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 and Generalized anxiety disorder F41.[address] 26766- 3659 Jan, UTI (urinary tract infection) N39.0 ; Asthma J45.909 ; Coronary artery disease involving havasupai coronary artery of havasupai heart, angina presence unspecified I25.10 ; Hypertension I10 ; Hypothyroid E03.9 ; Vitamin D deficiency E55.9 ; Insomnia G47.00 ; Palpitations R00.2 ; Depressed F32.9 ; Restless leg G25.81 and Anxiety F41.9 [place] [id number] [place] [address] 85073- 1272 Jan, Dysthymic 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 and Generalized anxiety disorder F41.[address] 24449- 6890 Jan, [place] [address] [place] [id number] [place] [address] 39477- 2068 Dec, [place] [address] [place] [id number] [place] [address] 99577- 0398 Dec, Alkalosis 276.3 ; Chronic kidney disease, 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.4 ; Hyperpotassemia 276.7 ; Secondary hyperparathyroidism, renal 588.81 ; Proteinuria 791.0 ; Unspecified vitamin D deficiency 268.9 ; Anemia in chronic kidney disease 285.21 ; Other and unspecified hyperlipidemia 272.4 ; Hypertension, essential, benign 401.1 and Chronic kidney disease (CKD), stage III (moderate) 585.3 [place] [address] [place] [id number] [place] [address] 37466- 7266 Dec, [place] [address] 26574- 7374 Dec, Depressive disorder, not elsewhere classified 311 and Generalized anxiety disorder 300.02 [place] [address] [place] [id number] [place] [address] 36357- 2036 Dec, [place] [id number] [place] [address] 77569- 1528 Dec, [place] [address] [place] [id number] [place] [address] 11327- 5834 Nov, Depressive disorder, not elsewhere classified 311 and Generalized anxiety disorder 300.02 [place] [address] [place] [id number] [place] [address] 41636- 6964 Nov, Arthritis of both knees 716.96 [place] [id number] [place] [address] 42068- 1688 07 Nov, 2014 PAF (paroxysmal atrial fibrillation) 427.31 ; CAD (coronary artery disease) 414.00 ; Chest pain 786.50 and Chronic kidney disease (CKD) stage G4/A1, severely decreased glomerular filtration rate (GFR) between 15-29 mL/min/1.73 square meter and albuminuria creatinine ratio less than 30 mg/g 585.4 [place] [address] [address]- 7598 Oct, Coronary atherosclerosis of unspecified type of vessel, havasupai or graft 414.00 ; Chronic kidney disease, 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.4 ; Hypertension 401.9 and Edema 782.3 [place] [id number] [place] [address] 46896- 4773 Oct, Depressive disorder, not elsewhere classified 311 and Generalized anxiety disorder 300.02 [place] [id number] [place] [address] 05717- 5686 Oct, Depressive disorder, not elsewhere classified 311 and Generalized anxiety disorder 300.02 [place] [id number] [place] [address] 57130- 2024 Oct, [place] [id number] [place] [address] 02243- 2806 Oct, [place] [id number] [place] [address] 84608- 3971 Sep, [place] [id number] [place] [address] 21131- 3472 Sep, Chronic kidney disease, 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.4 [place] [id number] [place] [address] 50574- 4582 Sep, [place] [id number] [place] [address] 81642- 0692 Sep, Coronary atherosclerosis of unspecified type of vessel, havasupai or graft 414.00 ; Hypertension 401.9 ; Edema 782.3 and Hypothyroidism 244.9 [place] [id number] [place] [address] 41229- 8564 Sep, Coronary atherosclerosis of unspecified type of vessel, havasupai or graft 414.00 ; Hypertension 401.9 ; Fibromyalgia 729.1 ; Edema 782.3 ; Hypothyroidism 244.9 and Anemia 285.9 [place] [id number] [place] [address] 00292- 9924 Sep, Anxiety disorder, unspecified 300.00 and Depressive disorder , not elsewhere classified 311 [facility] [address]- 5401 Sep, [facility] [address] [place] [id number] [address]898 August, Generalized anxiety disorder 300.02 [facility] [address] [place] [id number] [address]- 0442 August, Closed fracture of lateral malleolus 824.2 [facility] [address] 0935 Jul, [facility] [address] [place] [id number] [place] [address] 77512- 2273 Jul, [facility] [address] [place] [id number] [place] [address] 88667- 4467 Jun, [facility] [address] [place] [id number] [place] [address] 69842- 6923 Jun, [facility] [address] [address]- 7546 Jun, [facility] [address] [address]- 5671 Jun, [facility] [address] [address]- 3714 Jun, [facility] [address] 5512 Jun, [facility] [address]- 3197 May, [facility] [address] 4086 May, [facility] [address] [address]- 0046 May, [facility] [address] [place] [id number] [place] [address]- 4180 18 May, 2014 [facility] [place] [facility] [address] [id number] [place] [address]- 5636 16 May, 2014 [facility] [place] [facility] [address] [id number] [place] [address] 2546 16 May, 2014 [facility] [place] [facility] [address] [id number] [place] [address] 2546 13 May, 2014 [facility] [place] [facility] [address] [id number] [place] [address] 2546 13 May, 2014 [facility] [place] [facility] [address] [id number] [place] [address]- 2146 10 May, 2014 [facility] [place] [facility] [address] [id number] [place] [address]- 2546 10 May, 2014 [facility] [place] [facility] [address] [id number] [place] [address]- 5782 Apr, [facility] [place] [facility] [address] [id number] [place] [address] 2542 Apr, [facility] [place] [facility] [address] [id number] [place] [address]- 0884 Mar, [facility] [place] [facility] [address] [id number] [place] [address]- 2482 Mar, [facility] [place] [facility] [address] [id number] [place] [address]- 2546 Mar, [facility] [place] [facility] [address] [id number] [place] [address] 2546 Mar, [facility] [place] [facility] [address] [id number] [place] [address] 2546 Mar, [facility] [place] [facility] [address] [id number] [place] [address]- 2546 Mar, [facility] [place] [facility] [address] [id number] [place] [address]- 3276 Mar, [facility] [place] [facility] [address] [id number] [place] [address]- 5474 Feb, [facility] [place] [facility] [address] [id number] [place] [address]- 5762 Feb, [facility] [place] [facility] [address] [id number] [place] [address]- 3047 Feb, [facility] [place] [facility] [address] [id number] [place] [address]- 0395 Jan, [facility] [place] [facility] [address] [id number] [place] [address]- 8408 Jan, [facility] [place] [facility] [address] [id number] [place] [address]- 8487 Jan, [facility] [place] [facility] [address] [id number] [place] [address]- 5480 Jan, [facility] [place] [facility] [address] [id number] [place] [address]- 7243 Jan, [facility] [place] [facility] [address] [id number] [place] [address]- 1033 Jan, [facility] [place] [facility] [address] [id number] [place] [address]- 8118 Jan, [facility] [place] [facility] [address] [id number] [place] [address]- 7844 Jan, [facility] [place] [facility] [address] [id number] [address]- 5341 Jan, [facility] [place] [facility] [address] [id number] [place] [address]- 8032 Jan, [facility] [place] [facility] [address] [id number] [place] [address]- 4249 Nov, [facility] [place] [facility] [address] [id number] [place] [address]- 0445 Nov, [facility] [place] [facility] [address] [id number] [place] [address]- 6329 Nov, [facility] [place] [facility] [address] [id number] [place] [address]- 6970 Oct, [facility] [place] [facility] [address] [id number] [place] [address]- 0325 Oct, [facility] [place] [facility] [address] [id number] [place] [address]- 6214 Oct, [facility] [place] [facility] [address] [id number] [place] [address]- 2558 Oct, [facility] [place] [facility] [address] [id number] [place] [address]- 7678 Oct, [facility] [place] [facility] [address] [id number] [place] [address]- 6252 Oct, [facility] [place] [facility] [address] [id number] [place] [address]- 4895 Oct, [facility] [place] [facility] [address] [id number] [place] [address]- 6662 Oct, [facility] [place] [facility] [address] [id number] [place] [address]- 1375 Oct, [facility] [place] [facility] [address] [id number] [place] [address]- 5851 Sep, [facility] [place] [facility] [address] [id number] [place] [address]- 8164 Sep, [facility] [place] [facility] [address] [id number] [place] [address]- 7618 Sep, [facility] [place] [facility] [address] [id number] [place] [address]- 8705 Sep, [facility] [place] [facility] [address] [id number] [place] [address]- 3989 Sep, [facility] [place] [facility] [address] [id number] [place] [address]- 5844 Sep, [facility] [place] [facility] [address] [id number] [place] [address]- 2024 Sep, [facility] [place] [facility] [address] [id number] [place] [address]- 9748 Sep, [facility] [place] [facility] [address] [id number] [place] [address]- 0252 Sep, [facility] [place] [facility] [address] [id number] [place] [address]- 1009 August, [facility] [place] [facility] [address] [id number] [place] [address]- 8494 August, [facility] [place] [facility] [address] [id number] [place] [address]- 5267 August, [facility] [place] [facility] [address] [id number] [place] [address]- 0343 August, [facility] [place] [facility] [address] [id number] [place] [address]- 7679 August, [facility] [place] [facility] [address] [id number] [place] [address]- 4839 August, [facility] [place] [facility] [address] [id number] [place] [address]- 0148 Jul, [facility] [place] [facility] [address] [id number] [place] [address]- 3471 Jul, [facility] [place] [facility] [address] [id number] [place] [address]- 6277 Jul, [facility] [place] [facility] [address] [id number] [place] [address]- 6287 Jul, [facility] [place] [facility] [address] [id number] [place] [address]- 1938 Jul, [facility] [place] [facility] [address] [id number] [place] [address]- 1492 Jul, [facility] [place] [facility] [address] [id number] [place] [address]- 0408 Jun, [facility] [place] [facility] [address] [id number] [place] [address]- 6393 Jun, [facility] [place] [facility] [address] [id number] [place] [address]- 2986 May, [facility] [place] [facility] [address] [id number] [place] [address]- 8566 May, [facility] [place] [facility] [address] [id number] [place] [address]- 2509 May, [facility] [place] [facility] [address] [id number] [place] [address]- 3166 May, [facility] [place] [facility] [address] [id number] [place] [address]- 5114 Apr, [facility] [place] [facility] [address] [id number] [place] [address]- 6884 Apr, [facility] [place] [facility] [address] [id number] [place] [address]- 9897 Mar, [facility] [place] [facility] [address] [id number] [place] [address]- 6895 Mar, [facility] [place] [facility] [address] [id number] [place] [address]- 0198 Mar, [facility] [place] [facility] [address] [id number] [place] [address]- 7574 Mar, [facility] [place] [facility] [address] [id number] [place] [address]- 8704 Mar, [facility] [place] [facility] [address] [id number] [place] [address]- 2549 Mar, [facility] [place] [facility] [address] [id number] [place] [address]- 7283 Feb, [facility] [place] [facility] [address] [id number] [place] [address]- 9175 Feb, [facility] [place] [facility] [address] [id number] [place] [address]- 9064 14 Feb, 2013 [facility] [place] [facility] [address] [id number] [place] [address]- 3163 14 Feb, 2013 [facility] [place] [facility] [address] [id number] [place] [address] 2546 05 Feb, 2013 [facility] [place] [facility] [address] [id number] [place] [address]- 9460 05 Feb, 2013 [facility] [place] [facility] [address] [id number] [place] [address]- 3917 Jan, [facility] [place] [facility] [address] [id number] [place] [address]- 7292 24 Jan, 2013 [facility] [place] [facility] [address] [id number] [place] [address]- 1633 Jan, [facility] [place] [facility] [address] [id number] [place] [address]- 1576 Jan, [facility] [place] [facility] [address] [id number] [place] [address]- 7929 Jan, [facility] [place] [facility] [address] [id number] [place] [address]- 3665 Jan, [facility] [place] [facility] [address] [id number] [place] [address]- 3547 Dec, [facility] [place] [facility] [address] [id number] [place] [address]- 2253 Dec, [facility] [place] [facility] [address] [id number] [place] [address]- 4847 Nov, [facility] [place] [facility] [address] [id number] [place] [address]- 6296 Nov, [facility] [place] [facility] [address] [id number] [place] [address]- 2546 Oct, [facility] [place] [facility] [address] [id number] [place] [address]- 6014 Oct, [facility] [address] [id number] [place] [address]- 7600 Oct, [facility] [place] [facility] [address] [id number] [place] [address]- 3722 Oct, [facility] [place] [facility] [address] [id number] [place] [address] Oct, [facility] [place] [facility] [address] [id number] [place] [address] Oct, [facility] [address] [id number] [place] [address] Sep, [facility] [place] [facility] [address] [id number] [place] [address] Sep, [facility] [address] [id number] [place] [address] Sep, [facility] [place] [facility] [address] [id number] [place] [address] Sep, [facility] [place] [facility] [address] [id number] [place] [address] August, [facility] [place] [facility] [address] [id number] [place] [address] August, [facility] [place] [facility] [address] [id number] [place] [address] August, [facility] [place] [facility] [address] [id number] [place] [address] August, [facility] [place] [facility] [address] [id number] [place] [address] August, [facility] [place] [facility] [address] [id number] [place] [address] Jul, [facility] [place] [facility] [address] [id number] [place] [address] Jul, [facility] [place] [facility] [address] [id number] [place] [address] 15 Jul, 2012 [facility] [address] [id number] [place] [address] Jul, [facility] [place] [facility] [address] [id number] [place] [address] Jul, [facility] [place] [facility] [address] [id number] [place] [address] Jul, [facility] [place] [facility] [address] [id number] [place] [address] Jul, [facility] [place] [facility] [address] [id number] [place] [address] Jul, [facility] [place] [facility] [address] [id number] [place] [address] Jul, [facility] [place] [facility] [address] [id number] [place] [address] Jul, [facility] [address] [place] [id number] [id number] Jun, [facility] [place] [facility] [address] [id number] [place] [address] Jun, [facility] [place] [facility] [address] [id number] [place] [address] Jun, [facility] [place] [facility] [address] [id number], [place] [address] Jun, [facility] [place] [facility] [address] [id number], [place] [address] Jun, [facility] [place] [facility] [address] [id number] [place] [address] May, [facility] [place] [facility] [address] [id number] [place] [address]- [address] May, [facility] [place] [facility] [address] [id number] [place] [address] May, [facility] [place] [facility] [address] [id number] [place] [address] Apr, [facility] [place] [facility] [address] [id number] [place] [address]- [address] Apr, [facility] [place] [facility] [address] [id number] [place] [address]- [address] Apr, [facility] [place] [facility] [address] [id number] [place] [address] Apr, [facility] [place] [facility] [address] [id number] [place] [address]- [address] Apr, [facility] [place] [facility] [address] [id number] [place] [address] Apr, [facility] [place] [facility] [address] [id number] [place] [address] Mar, [facility] [place] [facility] [address] [id number] [place] [address] Mar, [facility] [place] [facility] [address] [id number] [place] [address] Mar, [facility] [place] [facility] [address] [id number] [place] [address] Mar, [facility] [place] [facility] [address] [id number] [place] [address] Feb, [facility] [place] [facility] [address] [id number] [place] [address] Feb, [facility] [place] [facility] [address] [id number] [place] [address] Feb, [facility] [place] [facility] [address] [id number] [place] [address]- [address] Feb, [facility] [place] [facility] [address] [id number] [place] [address] Feb, [facility] [place] [facility] [address] [id number] [place] [address] Feb, [facility] [place] [facility] [address] [id number] [place] [address]- [address] Feb, [facility] [place] [facility] [address] [id number] [place] [address]- [address] Feb, [facility] [place] [facility] [address] [facility] [id number] [place] [address]- [address] Feb, [facility] [place] [facility] [address] [id number] [place] [address]- [address] Feb, [facility] [place] [facility] [address] [id number] [place] [address]- 6129 Feb, [facility] [place] [facility] [address] [id number] [place] [address] Feb, [facility] [place] [facility] [address] [facility] [id number] [place] [address] Feb, [facility] [place] [facility] [address] [id number], [place] [address] Feb, [facility] [place] [facility] [address] [id number], [place] [address] Feb, [facility] [place] [facility] [address] [facility] [id number], [place] [address] Feb, [facility] [place] [facility] [address] [facility] [id number], [place] [address] Jan, [facility] [place] [facility] [address] [id number], [place] [address] Jan, [facility] [place] [facility] [address] [id number], [place] [address] Jan, [facility] [place] [facility] [address] [facility] [id number], [place] [address] Jan, [facility] [place] [facility] [address] [facility] [id number], [place] [address] Jan, [facility] [place] [facility] [address] [id number] [place] [address] 25 Jan, 2012 [facility] [place] [facility] [address] [id number] [place] [address] 290[address] 25 Jan, 2012 [facility] [place] [facility] [address] [id number] [place] [address] 2546 16 Jan, 2012 [facility] [place] [facility] [address] [id number] [place] [address] 2546 16 Jan, 2012 [facility] [place] [facility] [address] [id number] [place] [address] 2546 15 Jan, 2012 [facility] [place] [facility] [address] [id number] [place] [address]- 276[address] 15 Jan, 2012 [facility] [place] [facility] [address] [id number] [place] [address]- 2546 Jan, [facility] [place] [facility] [address] [id number] [place] [address]- 45[address] 26 Sep, 2011 [facility] [place] [facility] [address] [id number] [place] [address] 2549 26 Sep, 2011 [facility] [place] [facility] [address] [id number] [place] [address] 2546 24 Sep, 2011 [facility] [place] [facility] [address] [facility] [id number] [place] [address] 254 23 Sep, 2011 [facility] [place] [facility] [address] [id number] [place] [address] 2546 22 Sep, 2011 [facility] [place] [facility] [address] [id number] [place] [address] 2546 21 Sep, 2011 [facility] [place] [facility] [address] [id number] [place] [address] 2546 20 Sep, 2011 [facility] [place] [facility] [address] [facility] [id number] [place] [address] 2546 20 Sep, 2011 [facility] [place] [facility] [address] [id number] [place] [address] 2542 07 Sep, 2011 [facility] [place] [facility] [address] [id number] [place] [address] 7437 06 Dec, 2011 [facility] [place] [facility] [address] [id number] [place] [address]- [address]447 Dec, 2011 [facility] [place] [facility] [address] [id number] [place] [address]- [address]696 05 Dec, 2011 [facility] [place] [facility] [address] [id number] [place] [address] 9490 Nov, [facility] [place] [facility] [address] [id number] [place] [address]666 Nov, [facility] [place] [facility] [address] [id number] [place] [address] 7003 Nov, [facility] [place] [facility] [address] [id number] [place] [address]- 5645 Nov, [facility] [place] [facility] [address] [id number] [place] [address]- 8188 Nov, [facility] [place] [facility] [address] [id number] [place] [address] 8364 Nov, [facility] [place] [facility] [address] [id number] [place] [address] 54[address] Nov, [facility] [place] [facility] [address] [id number] [place] [address] 2507 Nov, [facility] [place] [facility] [address] [id number] [place] [address] 3995 Oct, [facility] [place] [facility] [address] [id number] [place] [address] 9695 Oct, [facility] [place] [facility] [address] [id number] [place] [address]- 6331 Oct, [facility] [place] [facility] [address] [id number] [place] [address] 2218 Oct, [facility] [place] [facility] [address] [id number] [place] [address] 6027 Oct, [facility] [place] [facility] [address] [id number] [place] [address]- 2942 Oct, [facility] [place] [facility] [address] [id number] [place] [address] 1983 Oct, [facility] [place] [facility] [address] [id number] [place] [address] 3754 Sep, [facility] [place] [facility] [address] [id number] [place] [address]- 4123 Sep, [facility] [place] [facility] [address] [id number] [place] [address] 4021 August, [facility] [place] [facility] [address] [id number] [place] [address] 4398 August, [facility] [place] [facility] [address] [id number] [place] [address]- 8323 August, [facility] [place] [facility] [address] [id number] [place] [address]- 8985 August, [facility] [place] [facility] [address] [id number] [place] [address] 1224 Jul, [facility] [place] [facility] [address] [id number] [place] [address]- 8788 Jul, [facility] [place] [facility] [address] [id number] [place] [address]- 6089 Jul, [facility] [place] [facility] [address] [id number] [place] [address]- 6587 Jul, [facility] [place] [facility] [address] [id number] [place] [address] 2232 Jul, [facility] [place] [facility] [address] [id number] [place] [address]- 2988 Jul, [facility] [place] [facility] [address] [id number] [place] [address]- 0976 Jul, [facility] [place] [facility] [address] [id number] [place] [address]- 6566 02 Jul, 2011 [facility] [address] [id number] [place] [address]- 1825 Jul, [facility] [place] [facility] [address] [id number] [place] [address]- 8606 23 Jun, 2011 [facility] [address] [id number] [place] [address]- 8696 19 Jun, 2011 [facility] [address] [id number] [place] [address]- 7848 15 Jun, 2011 [facility] [address] [id number] [place] [address] 1986 14 Jun, 2011 [facility] [address] [facility] [id number] [place] [address]- 6152 12 Jun, 2011 [facility] [address] [id number] [place] [address]- 0153 Jun, [facility] [address] [id number] [place] [address]- 9095 Jun, [facility] [address] [id number] [place] [address]- 4305 25 May, 2011 [facility] [address] [id number] [place] [address]- 3236 24 May, 2011 [facility] [address] [id number] [place] [address]- 2666 16 May, 2011 [facility] [address] [id number] [place] [address]- 4916 16 May, 2011 [facility] [place] [facility] [address] [id number] [place] [address]- 7736 03 May, 2011 [facility] [place] [facility] [address] [id number] [place] [address]- 7726 Apr, [facility] [place] [facility] [address] [id number] [place] [address]- 8354 Apr, [facility] [place] [facility] [address] [id number] [place] [address]- 3522 Apr, [facility] [place] [facility] [address] [id number] [place] [address]- 3274 Apr, [facility] [place] [facility] [address] [facility] [id number] [place] [address]- 2858 Apr, [facility] [place] [facility] [address] [id number] [place] [address]- 2907 Mar, [facility] [place] [facility] [address] [id number] [place] [address]- 7467 Mar, [facility] [place] [facility] [address] [id number] [place] [address]- 0730 Mar, [facility] [place] [facility] [address] [id number] [place] [address]- 6983 Mar, [facility] [place] [facility] [address] [id number], [place] [address]- 4143 Mar, [facility] [place] [facility] [address] [id number] [place] [address]- 0758 Mar, [facility] [place] [facility] [address] [id number] [place] [address]- 8634 Mar, [facility] [place] [facility] [address] [id number], [place] [address]- 9901 Feb, [facility] [place] [facility] [address] [id number], [place] [address]- 4363 Feb, [facility] [place] [facility] [address] [id number] [place] [address]- 6978 Feb, [facility] [place] [facility] [address] [id number], [place] [address]- 6368 Feb, [facility] [place] [facility] [address] [id number] [place] [address]- 2996 Jan, [facility] [place] [facility] [address] [facility] [id number], [place] [address]- 5806 Jan, [facility] [address] [facility] [id number], [place] [address]- 1516 Jan, [facility] [address] [facility] [id number], [place] [address]- 9136 Jan, [facility] [address] [facility] [id number], [place] [address]- 3171 Nov, [facility] [address] [facility] [id number], [place] [address]- 0707 Mar, [facility] [address] [facility] [id number] 18[address] Mar, [facility] [address] [facility] [id number], [place] [address]- 8976 Mar, [facility] [id number], [place] [address]- 1088 Mar, [facility] [address] [facility] [id number], [place] [address]- 9958 Mar, [facility] [id number], [place] [address]- 3984 Mar, [facility] [address] [facility] [id number], [place] [address]- 5269 Feb, [facility] [id number], [place] [address]- 2462 Feb, [facility] [address] [facility] [id number], [place] [address]- 6910 Jan, [facility] [address] [facility] [id number], [place] [address]- 5657 Jan, [facility] [id number], [place] [address]- 4995 Jan, IMMUNIZATIONS No Known Immunizations SOCIAL HISTORY Never Assessed REASON FOR VISIT f/u PLAN OF CARE Activity Details Follow Up prn Reason: VITAL SIGNS MEDICATIONS Unknown Medications RESULTS No Results PROCEDURES Procedure Date Ordered Result Body Site [facility] VIS[facility] M[facility] ESTAB PT Feb 13, 2018 Psychotherapy, patient &/family, 30 minutes, established patient Feb 13, 2018 INSTRUCTIONS MEDICATIONS ADMINISTERED No Known Medications [...] 2020 & 2007 Surgical History Bladder surgery [facility] 03/2016 Surgical History Neurotransmitter placed 10/2017 Surgical History retninal repair 12/31/2017 Hospitalization History Surgeries Only Hospitalization History bacterial meningitis December 2016 Hospitalization History [facility] psych for SI 1988 Hospitalization History [facility]-Altered mental status 05/2017
--- OUTSIDE RECORDS SUMMARY | 2018-05-29 07:35 | XMS REPORT ---
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 Name Role Phone ZHANE BOSCH Unavailable PROBLEMS Type Condition ICD9-CM Code CMY05-TG Code Onset Dates Condition Status SNOMED Code Problem Generalized anxiety disorder F41.1 Active 60963839 Problem Low back pain M54.5 Active 177884084 Problem Coronary artery disease involving ugashik coronary artery of ugashik heart, angina presence unspecified I25.10 Active 5839384929847 Problem Dysthymic 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 Active 03160435 Problem Restless leg G25.81 Active 20203394 Problem Hypothyroid E03.9 Active 03867211 Problem Insomnia G47.00 Active 654729371 Problem Asthma J45.909 Active 977486118 Problem Palpitations R00.2 Active 37556719 Problem Anemia in chronic kidney disease D63.1 Active [id number] Problem Depressed F32.9 Active 57484500 Problem Bipolar disorder, current episode manic without psychotic features F31.10 Active 597015913 Problem Chronic kidney disease, stage 4 (severe) N18.4 Active 239930566 Problem Degenerative tear of medial meniscus of left knee M23.204 Active 721560817 Problem Mood disorder F39 Active 44994032 Problem Primary osteoarthritis of left knee M17.12 Active 151796154 Problem Perimenopausal vasomotor symptoms N95.1 Active 364664140 Problem Chronic pain syndrome G89.4 Active 634922935 Problem Asthma with acute exacerbation in adult J45.901 Active 511035344 Problem History of colon polyps Z86.010 Active 130287757 Problem Functional 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 Active 18516594 Problem Body mass index (BMI) of 40.0-44.9 in adult Z68.41 Active 572209468 Problem Stage 3 chronic kidney disease N18.3 Active 948866924 Problem Restless leg syndrome G25.81 Active 47883406 Problem Seasonal allergic rhinitis due to pollen J30.1 Active 57315422 Problem Long-term use of high-risk medication Z79.899 Active 370286137 Problem Hypokalemia E87.6 Active 96583709 Problem Abnormal chest CT R93.8 Active 783634778 Problem Fibromyalgia M79.7 Active 292797820 Problem History of anemia Z86.2 Active 599010698 Problem Other seasonal allergic rhinitis J30.2 Active 428405375 Problem Essential (primary) hypertension I10 Active 57224204 Problem Chronic kidney disease, unspecified N18.9 Active 286576990 Problem Mixed stress and urge urinary incontinence N39.46 Active 419364483 Problem Vitamin D deficiency E55.9 Active 40787051 ALLERGIES No Information ENCOUNTERS Encounter Location Date Diagnosis [place] [address] [address] 31 Jan, 2018 [facility] [address] [address] Jan, Acute conjunctivitis of left eye, unspecified acute conjunctivitis type H10.32 [place] [address] [address] Jan, [place] [address] [address] Jan, Acute non-recurrent maxillary sinusitis J01.00 ; Dysuria R30.0 ; Perimenopausal vasomotor symptoms N95.1 and Fibromyalgia M79.7 [place] [address] [address] Dec, Vitamin D deficiency E55.9 [place] [address] [address]- [address] Dec, Vitamin D deficiency E55.9 [place] [address] [address]- [address] 24 Dec, 2017 Vitamin D deficiency E55.9 [place] [address] [address]- [address] Dec, [place] [id number] [place] [address] 39559- 0397 Dec, Fibromyalgia M79.7 [facility] [address] [place] [id number] [place] [address] 73348- 9976 Nov, [facility] [address] [place] [id number] [place] [address] 18128- 3193 Nov, [facility] [address] [address]- [address] Nov, [facility] [address] [place] [id number] [place] [address] 12970- 1335 Nov, Fibromyalgia M79.7 ; Vision changes H53.9 ; Chest wall pain R07.89 and Chronic pain syndrome G89.4 [place] [address] [place] [id number] [place] [address] 28028- 7790 Nov, [place] [address] [place] [id number] [place] [address] 43322- 3987 Nov, Rash of hands R21 [place] [address] [place] [id number] [place] [address] 13862- 6813 Nov, Generalized anxiety disorder F41.1 and Major depressive disorder, recurrent episode with anxious distress F33.9 [place] [address] [place] [id number] [place] [address] 97080- 7163 Nov, Fibromyalgia M79.7 [facility] [address] [place] [id number] [place] [address] 25359- 3031 Nov, Complicated UTI (urinary tract infection) N39.0 [facility] [address] [place] [id number] [place] [address] 33626- 0267 Oct, [facility] [address] [place] [id number] [place] [address] 59302- 1602 Oct, Generalized anxiety disorder F41.1 and Major depressive disorder, recurrent episode with anxious distress F33.9 [facility] [address] [place] [id number] [place] [address] 05740- 0653 Oct, [facility] [id number] [place] [address] 86085- 8208 Oct, Fibromyalgia M79.7 [facility] [address] [place] [id number] [place] [address] 19321- 7285 Sep, Restless leg syndrome G25.81 and Restless leg G25.81 [facility] [address] [place] [id number] [place] [address] 71380- 6330 Sep, [facility] [address] [place] [id number] [place] [address] 82225- 7510 Sep, Seasonal allergic rhinitis due to pollen J30.1 ; Screening for breast cancer Z12.31 ; Chest pain at rest R07.9 ; Restless leg syndrome G25.81 ; Essential (primary) hypertension I10 and Depressed F32.9 [facility] [address] [place] [id number] [place] [address] 29542- 7918 August, Fibromyalgia M79.7 [facility] [address] [place] [id number] [place] [address] 20572- 6455 August, [facility] [address] [place] [id number] [place] [address] 43273- 6096 August, [facility] [address] [place] [id number] [place] [address] 79210- [address] August, [address] R93.8 [facility] [address] [place] [id number] [place] [address] 75627- 9000 August, Generalized anxiety disorder F41.1 and Major depressive disorder, recurrent episode with anxious distress F33.9 [facility] [address] [place] [id number] [place] [address] 05504- 7777 August, Ab[address] chest [address] R93.8 [facility] [address] [place] [id number] [place] [address] 31503- 2147 Jul, [facility] [address] [place] [id number] [place] [address] 37291- 7931 Jul, Chronic kidney disease, stage 4 (severe) N18.4 [facility] [address] [place] [id number] [place] [address] 75074- 1566 Jul, [facility] [address] [place] [id number] [place] [address] 35574- 5153 Jul, Restless leg G25.81 ; Mixed stress and urge urinary incontinence N39.46 and Fibromyalgia M79.7 [place] [address] [place] [id number] [place] [address] 25497- 4069 Jul, Chronic kidney disease, stage 4 (severe) N18.4 [place] [address] [place] [id number] [place] [address] 57040- 2446 Jun, Orthostatic hypotension I95.1 ; Chronic kidney disease, stage 4 (severe) N18.4 ; Chest wall discomfort R07.89 and Body mass index (BMI) of 40.0-44.9 in adult Z68.41 [place] [address] [place] [id number] [place] [address] 89187- 3084 Jun, [place] [address] [place] [id number] [place] [address] 97254- 6544 Jun, Orthostatic hypotension I95.1 [place] [address] [place] [id number] [place] [address] 53997- 1836 Jun, [facility] [address] [place] [id number] [place] [address] 68722 -1059 Jun, Orthostatic hypotension I95.1 ; Dysuria R30.0 and Acute cystitis without hematuria N30.00 [facility] [address] [place] [id number] [place] [address] 13384- 3511 Jun, [facility] [address] [place] [id number] [place] [address] 41585- 4598 Jun, Chronic kidney disease, stage 4 (severe) N18.4 [place] [address] [place] [id number] [place] [address] 74463- 0365 Jun, Fibromyalgia M79.7 [facility] [address] [address]- 4[address] Jun, [facility] [address] [place] [id number] [place] [address] 96769- 2296 Jun, [facility] [address] [place] [id number] [place] [address] 61910- [address] May, [address] R93.8 and Stage 3 chronic kidney disease N18.3 [facility] [address] [place] [id number] [place] [address] 57437- 6142 May, Chronic kidney disease, stage 4 (severe) N18.4 [facility] [address] [place] [id number] [place] [address] 87112- 2584 May, Chronic kidney disease, stage 4 (severe) N18.4 [facility] [address] [place] [id number] [place] [address] 67850- 6637 May, [address] R93.8 [facility] [id number] [place] [address] 63320- 5376 May, [facility] [address] [place] [id number] [place] [address] 71413- 3378 May, [facility] [address] [place] [id number] [place] [address] 95192- 9079 May, Generalized anxiety disorder F41.1 and Major depressive disorder, recurrent episode with anxious distress F33.9 [facility] [address] [address]- 4435 May, Mood disorder F39 [facility] [address] [place] [id number] [place] [address] 76865- 0371 Apr, [facility] [id number] [place] [address] 64393- 4065 Apr, Infected skin lesion L08.9 and Muscle strain of right shoulder region, initial encounter S46.911A [facility] [address] [address]- 6[address] Apr, Generalized anxiety disorder F41.1 and Major depressive disorder, recurrent episode with anxious distress F33.9 [facility] [id number] [place] [address] 38790- 5488 Apr, [facility] [address] [place] [id number] [place] [address] 12256- 7829 Apr, Recent urinary tract infection Z87.440 and Hypothyroid E03.9 [place] [address] [place] [id number] [place] [address] 15610- 9258 Apr, Generalized anxiety disorder F41.1 and Major depressive disorder, recurrent episode with anxious distress F33.9 [place] [address] [place] [id number] [place] [address] 75866- 0903 Apr, Recent urinary tract infection Z87.440 [place] [address] [place] [id number] [place] [address] 09743- 7987 Mar, [facility] [address] [place] [id number] [place] [address] 37047 -5958 Mar, Dysuria R30.0 ; Acute cystitis without hematuria N30.00 and BMI 40.0-44.9, adult Z68.41 [place] [address] [address]- 2400 Mar, [facility] [address] [place] [id number] [place] [address] 41438- 3481 Mar, [place] [address] [place] [id number] [place] [address] 61347- 5617 Mar, Generalized anxiety disorder F41.1 and Major depressive disorder, recurrent episode with anxious distress F33.9 [facility] [id number] [place] [address] 23203- 5390 Feb, Conjunctivitis, bacterial H10.9 [facility] [address] [place] [id number] [place] [address] 25614- 5084 Feb, [facility] [id number] [place] [address] 62848 -0343 Feb, Conjunctivitis, bacterial H10.9 [facility] [address] [place] [id number] [place] [address] 34218- 8012 Feb, [facility] [address] [place] [id number] [place] [address] 42368 -2422 Feb, Dysuria R30.0 ; Acute cystitis N30.00 and BMI 40.0-44.9, adult Z68.41 [place] [address] [place] [id number] [place] [address] 30899- 6280 Feb, [place] [address] [place] [id number] [place] [address] 25045- 8673 Feb, Generalized anxiety disorder F41.1 and Major depressive disorder, recurrent episode with anxious distress F33.9 [place] [address] [place] [id number] [place] [address] 67753- 7829 Feb, Mood disorder F39 and BMI 40.0-44.9, adult Z68.41 [place] [address] [place] [id number] [place] [address] 42351- 6713 Jan, [place] [address] [place] [id number] [place] [address] 41527- 8512 Jan, [place] [address] [place] [id number] [place] [address] 37573- 0672 Jan, Hypothyroid E03.9 [place] [address] [place] [id number] [place] [address] 54234- 0746 Jan, [place] [address] [place] [id number] [place] [address] 55630- 4636 Jan, Chronic kidney disease, unspecified N18.9 ; Hypokalemia E87.6 ; Essential (primary) hypertension I10 ; Fibromyalgia M79.7 ; Coronary artery disease involving ugashik coronary artery of ugashik heart, angina presence unspecified I25.10 ; Hypothyroid E03.9 and Encounter for immunization Z23 [facility] [id number] [place] [address] 78424- 5211 04 Jan, 2017 Hypothyroid E03.9 [facility] [address] [place] [id number] [place] [address] 38639- 7096 02 Jan, 2017 [facility] [address] [place] [id number] [place] [address] 22314- 4695 28 Dec, 2016 Vitamin D deficiency E55.9 [facility] [address] [place] [id number] [place] [address] 75775- 3592 28 Dec, 2016 Primary osteoarthritis of left knee M17.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 [place] [address] [place] [id number] [place] [address] 13128- 1961 19 Dec, 2016 Fibromyalgia M79.7 [place] [address] [place] [id number] [place] [address] 35962- 4894 18 Dec, 2016 Mood disorder F39 [place] [address] [place] [id number] [place] [address] 36368- 2549 13 Dec, 2016 [place] [address] [place] [id number] [place] [address] 71355- 9170 13 Dec, 2016 Generalized anxiety disorder F41.1 and Major depressive disorder, recurrent episode with anxious distress F33.9 [place] [id number] [place] [address] 61832- 9561 11 Dec, 2016 [facility] [address] [place] [id number] [place] [address] 02966- 2541 08 Dec, 2016 Streptococcal meningitis G00.2 [place] [address] [place] [id number] [place] [address] 32626- 5710 07 Dec, 2016 Streptococcal meningitis G00.2 [facility] [id number] [place] [address] 75214- 2543 07 Dec, 2016 [place] [address] [place] [id number] [place] [address] 67655- 5803 Dec, Streptococcal meningitis G00.2 [facility] [id number] [place] [address] 22780- 6396 Dec, [facility] [address] [place] [id number] [place] [address] 10528- 6468 Dec, Major depressive disorder, recurrent episode with anxious distress F33.9 [facility] [address] [place] [id number] [place] [address] 69926- 7794 Nov, Fever, unspecified fever cause R50.9 [facility] [address] [place] [id number] [place] [address] 07315- 2847 Nov, [facility] [address] [place] [id number] [place] [address] 78480- 3154 Nov, Hypothyroid E03.9 [facility] [address] [place] [id number] [place] [address] 79702- 3533 Nov, Generalized anxiety disorder F41.1 and Major depressive disorder, recurrent episode with anxious distress F33.9 [facility] [id number] [place] [address] 98814- 7418 Nov, [facility] [address] [place] [id number] [place] [address] [id number] Oct, Dental examination Z01.20 [facility] [address] [place] [id number] [place] [address] 70487- 6727 Oct, Generalized anxiety disorder F41.1 and Major depressive disorder, recurrent episode with anxious distress F33.9 [facility] [id number] [place] [address] 06660- 9470 Oct, Chronic kidney disease, stage 4 (severe) N18.4 [facility] [address] [place] [id number] [place] [address] 99492- 7782 Oct, [facility] [address] [place] [id number] [place] [address] 57124- 2276 Oct, Fibromyalgia M79.7 [facility] [address] [place] [address]- 6413 Oct, [place] [address] [place] [id number] [place] [address] 99029- 8028 Oct, Generalized anxiety disorder F41.1 ; Major depressive disorder, recurrent episode with anxious distress F33.9 and Bipolar disorder, current episode manic without psychotic features F31.10 [place] [address] [place] [id number] [place] [address] 59405- 4490 Sep, [place] [address] [place] [id number] [place] [address] 78195- 1851 Sep, [place] [address] [place] [id number] [place] [address] 42216- 6322 Sep, Vitamin D deficiency E55.9 [place] [address] [place] [id number] [place] [address] 18304- 6045 Sep, Vitamin D deficiency E55.9 [place] [address] [place] [id number] [place] [address] 79882- 1048 Sep, [place] [address] [place] [id number] [place] [address] 78111- 4028 Sep, Chronic kidney disease, stage 4 (severe) N18.4 ; Hypothyroid E03.9 ; Restless leg G25.81 ; Fibromyalgia M79.7 ; Essential ( primary) hypertension I10 ; Vitamin D deficiency E55.9 ; Dyspepsia R10.13 ; Anemia in chronic kidney disease D63.1 ; Chronic kidney disease, unspecified N18.9 ; Coronary artery disease involving ugashik coronary artery of ugashik heart , angina presence unspecified I25.10 ; Screening breast examination Z12.39 and Low back pain M54.5 [place] [address] [place] [id number] [place] [address] 58659- 6453 August, Generalized anxiety disorder F41.1 and Major depressive disorder, recurrent episode with anxious distress F33.9 [place] [address] [place] [id number] [place] [address] 44855- 5697 August, Generalized anxiety disorder F41.1 and Major depressive disorder, recurrent episode with anxious distress F33.9 [place] [address] [address]- 2931 August, Fibromyalgia M79.7 [place] [address] [place] [id number] [place] [address] 13937- 2873 Jul, Generalized anxiety disorder F41.1 and Major depressive disorder, recurrent episode with anxious distress F33.9 [place] [address] [place] [id number] [place] [address] 78392- 5101 Jul, Fibromyalgia M79.7 [place] [address] [place] [id number] [place] [address] 09340- 4402 Jul, Generalized anxiety disorder F41.1 [place] [address] [place] [id number] [place] [address] 02355- 9332 May, [place] [address] [place] [id number] [place] [address] 63246- 5613 May, Hypothyroid E03.9 [place] [id number] [place] [address] 63061- 6237 May, Chronic kidney disease, stage 4 (severe) N18.4 ; Hypothyroid E03.9 ; Restless leg G25.81 ; Fibromyalgia M79.7 ; Essential ( primary) hypertension I10 ; Vitamin D deficiency E55.9 ; Dyspepsia R10.13 ; Acute non-recurrent maxillary sinusitis J01.00 ; Anemia in chronic kidney disease D63.1 ; Chronic kidney disease, unspecified N18.9 and Coronary artery disease involving ugashik coronary artery of ugashik heart, angina presence unspecified I25.10 [place] [id number] [place] [address] 66748- 5712 May, Vitamin D deficiency, unspecified E55.9 [place] [id number] [place] [address] 29648- 5225 May, Generalized anxiety disorder F41.1 and Major depressive disorder, recurrent episode with anxious distress F33.9 [place] [address], [place] [address]- 5274 Apr, Pain in right knee M25.561 and Pain in left knee M25.562 [facility] [address] [id number] [place] [address] 24464- 0981 Apr, [facility] [id number] [place] [address] 68017- 1661 Apr, [facility] [id number] [place] [address] 32398- 7066 Apr, [facility] [id number] [place] [address] 06995- 2881 Mar, Generalized anxiety disorder F41.1 and Major depressive disorder, recurrent episode with anxious distress F33.9 [place] [id number] [place] [address] 71253- 7410 Mar, Generalized anxiety disorder F41.1 and Major depressive disorder, recurrent episode with anxious distress F33.9 [facility] [id number] [place] [address] 03131- 1580 Mar, [facility] [id number] [place] [address] 10072- 1877 Mar, [facility] [id number] [place] [address] 31375- 2188 Mar, [place] [id number] [place] [address] 76242- 9628 Mar, Asthma J45.909 and Fibromyalgia M79.7 [facility] [address] [address]- 7289 Mar, Chronic kidney disease, stage 4 (severe) N18.4 ; Vitamin D deficiency E55.9 and Essential (primary) hypertension I10 [facility] [address], [place] [address]- 3274 Feb, [facility] [id number] [place] [address] 71395- 2640 Feb, Dysuria R30.0 ; Mixed stress and urge urinary incontinence N39.46 ; Fibromyalgia M79.7 and Chronic kidney disease, stage IV (severe) N18.4 [facility] [id number] [place] [phone]- [phone] Feb, Chronic kidney disease, stage 4 (severe) N18.4 [facility] [address] [address] Feb, Chronic kidney disease, stage 4 (severe) N18.4 [facility] [address] [address] Feb, [facility] [address] [address] Feb, Vitamin D deficiency, unspecified E55.9 [facility] [address] [address]- [address] Jan, [facility] [address] [address] Jan, [facility] [address] [address] Dec, [facility] [id number] [place] [id number]- [address] Dec, Chronic kidney disease, stage 4 (severe) N18.4 [facility] [id number] [place] [phone]- 4176 Dec, Dysthymic 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 and Generalized anxiety disorder F41.1 [facility] [address] [address]- [address] Dec, [facility] [address] [address]- [address] Dec, [facility] [id number] [place] [phone] Dec, 2015 Dysthymic 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 and Generalized anxiety disorder F41.1 [facility] [id number] [place] [phone] 08 Dec, 2015 Dysuria R30.0 ; Chronic kidney disease, stage 4 (severe) N18.4 ; Hypertension I10 ; Dyspepsia R10.13 ; Yeast dermatitis B37.2 ; Palpitations R00.2 ; Hypothyroid E03.9 ; Functional 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 and Other seasonal allergic rhinitis J30.2 [facility] [facility] [address] [address] Dec, [facility] [address] [address] Nov, Dysuria R30.0 and Stress incontinence N39.3 [place] [address] [address]- 7499 Nov, [place] [address] 50786- 3975 Nov, [place] [address] 87701- 5104 Nov, Osteoarthritis of knees, bilateral M17.0 [facility] [address] 93328- 3267 Nov, Dysthymic 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 and Generalized anxiety disorder F41.1 [place] [id number] [place] [address] 26845- 4257 Nov, [place] [id number] [place] [address] 29451- 4687 Nov, [place] [address] 86582- 3272 Nov, Urgency of urination R39.15 [place] [address] 82075- 2443 Nov, [place] [address] 04530- 1768 Nov, Chronic kidney disease, stage 4 (severe) N18.4 [place] [id number] [place] [address] 68700- 7959 Oct, Hypertension I10 ; Coronary artery disease involving ugashik coronary artery of ugashik heart, angina presence unspecified I25.10 ; Palpitations R00.2 ; Hypothyroid E03.9 ; Right foot pain M79.671 ; Functional 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 and Other seasonal allergic rhinitis J30.2 [facility] [id number] [place] [address] 85606- 1667 Oct, Dysthymic 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 and Generalized anxiety disorder F41.1 [place] [id number] [place] [address] 63098- 0821 Sep, [place] [id number] [place] [address] 43417- 0754 Sep, [facility] [id number] [place] [address] 29145- 9292 Sep, [facility] [id number] [place] [address] 74951- 7867 Sep, [facility] [id number] [place] [address] 77848- 9222 Sep, [place] [id number] [place] [address] 37066- 8292 Sep, Dysthymic 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 and Generalized anxiety disorder F41.1 [facility] [id number] [place] [address] 70092- 3147 16 Sep, 2015 Asthma with acute exacerbation in adult J45.901 ; Dysuria R30.0 ; Chronic kidney disease, stage 4 (severe) N18.4 and History of anemia Z86.2 [facility] [id number] [place] [address] 63590- 4088 2015 Generalized anxiety disorder F41.1 and Dysthymic 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 [place] [id number] [place] [address] 87056- 9170 August, Screening breast examination Z12.39 and Acute recurrent maxillary sinusitis J01.01 [place] [id number] [place] [address] 50598- 4606 August, Osteoarthritis of knees, bilateral M17.0 [place] [address] 48728- 2716 August, Chronic kidney disease, stage 4 (severe) N18.4 ; Acute non- recurrent maxillary sinusitis J01.00 ; Urinary problem R39.89 ; Bowel habit changes R19.4 ; Functional 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 and History of colon polyps Z86.010 [place] [id number] [place] [address] 95443- 3056 Jul, Dysthymic 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 and Generalized anxiety disorder F41.1 [place] [id number] [place] [address] 97872- 9666 Jul, [place] [id number] [place] [address] 98125- 0645 18 Jul, 2015 Dysthymic 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 ; Generalized anxiety disorder F41.1 and 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 [place] [id number] [place] [address] 53939- 8272 Jul, [place] [id number] [place] [address] 33333- 9254 Jun, [place] [id number] [place] [address] 66591- 7621 Jun, [place] [id number] [place] [address] 85866- 1325 May, [place] [id number] [place] [address] 93736- 4513 May, Dysthymic 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 and Generalized anxiety disorder F41.1 [place] [id number] [place] [address] 94371- 9988 Apr, Kidney disease N28.9 [place] [address] 20086- 6218 Apr, Generalized anxiety disorder F41.1 and Dysthymic 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 [place] [id number] [place] [address] 85962- 0349 Apr, Chronic kidney disease, stage 4 (severe) N18.4 [place] [id number] [place] [address] 12056- 7065 Apr, Generalized anxiety disorder F41.1 ; Major depression, recurrent F33.9 and Sleep disturbance G47.9 [place] [id number] [place] [address] 71216- 2862 Mar, Generalized anxiety disorder F41.1 and Dysthymic 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 [place] [address] 51496- 2849 Mar, Generalized anxiety disorder F41.1 ; Dysthymic 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 and Insomnia G47.[address] 47755- 0763 Mar, [place] [id number] [place] [address] 23579- 0343 Mar, [place] [address] 24447- 8590 Mar, Osteoarthritis of knees, bilateral M17.0 [place] [id number] [place] [address] 15583- 1697 Mar, Hypertension I10 ; Hypothyroid E03.9 ; Dysthymic 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 ; Chronic kidney disease, stage 4 (severe) N18.4 and Nausea & vomiting R11.2 [place] [id number] [place] [address] 99320- 1022 Mar, Generalized anxiety disorder F41.1 ; Dysthymic disorder F34.1 and Insomnia G47.00 [place] [id number] [place] [address] 73513- 5644 Mar, Dehydration E86.0 ; Chronic kidney disease, stage 4 (severe ) N18.4 and Nausea & vomiting R11.2 [facility] [id number] [place] [address] 07308 -3254 Mar, Gastroenteritis K52.9 [facility] [address] 47540- 2070 Mar, [place] [address] 03070- 1561 Mar, [place] [id number] [place] [address] 03351- 5002 Feb, Dysthymic disorder F34.1 and Generalized anxiety disorder F41.[address] 64006- 3096 Jan, UTI (urinary tract infection) N39.0 ; Asthma J45.909 ; Coronary artery disease involving ugashik coronary artery of ugashik heart, angina presence unspecified I25.10 ; Hypertension I10 ; Hypothyroid E03.9 ; Vitamin D deficiency E55.9 ; Insomnia G47.00 ; Palpitations R00.2 ; Depressed F32.9 ; Restless leg G25.81 and Anxiety F41.9 [place] [id number] [place] [address] 76790- 3068 Jan, Dysthymic disorder F34.1 and Generalized anxiety disorder F41.1 [place] [id number] [place] [address] 25084- 8176 Jan, [place] [id number] [place] [address] 62209- 6550 Dec, [place] [id number] [place] [address] 41912- 8970 Dec, Alkalosis 276.3 ; Chronic kidney disease, 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.4 ; Hyperpotassemia 276.7 ; Secondary hyperparathyroidism, renal 588.81 ; Proteinuria 791.0 ; Unspecified vitamin D deficiency 268.9 ; Anemia in chronic kidney disease 285.21 ; Other and unspecified hyperlipidemia 272.4 ; Hypertension, essential, benign 401.1 and Chronic kidney disease (CKD), stage III (moderate) 585.3 [place] [id number] [place] [address] 12827- 1094 Dec, [address] 58931- 4564 Dec, Depressive disorder, not elsewhere classified 311 and Generalized anxiety disorder 300.[address] 20111- 8350 Dec, [address] 79067- 3220 Dec, [address] 85158- 0993 Nov, Depressive disorder, not elsewhere classified 311 and Generalized anxiety disorder 300.[address] 03514- 5339 Nov, Arthritis of both knees 716.[address] 57542- 4157 Nov, PAF (paroxysmal atrial fibrillation) 427.31 ; CAD (coronary artery disease) 414.00 ; Chest pain 786.50 and Chronic kidney disease (CKD) stage G4/A1, severely decreased glomerular filtration rate (GFR) between 15-29 mL/min/1.73 square meter and albuminuria creatinine ratio less than 30 mg/g 585.[address] 10202- 4690 Oct, Coronary atherosclerosis of unspecified type of vessel, ugashik or graft 414.00 ; Chronic kidney disease, 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.4 ; Hypertension 401.9 and Edema 782.[address] [place] [address]- 8779 Oct, Depressive disorder, not elsewhere classified 311 and Generalized anxiety disorder 300.02 [facility] [id number] [place] [address] 05260- 6024 Oct, Depressive disorder, not elsewhere classified 311 and Generalized anxiety disorder 300.02 [facility] [id number] [place] [address] 90174- 8723 Oct, [facility] [id number] [place] [address] 07543- 1459 Oct, [facility] [id number] [place] [address] 58698- 5163 Sep, [facility] [id number] [place] [address] 60370- 3748 Sep, Chronic kidney disease, 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.4 [place] [id number] [place] [address] 31746- 8277 Sep, [facility] [id number] [place] [address] 17184- 3440 Sep, Coronary atherosclerosis of unspecified type of vessel, ugashik or graft 414.00 ; Hypertension 401.9 ; Edema 782.3 and Hypothyroidism 244.9 [place] [id number] [place] [address] 07637- 6656 Sep, Coronary atherosclerosis of unspecified type of vessel, ugashik or graft 414.00 ; Hypertension 401.9 ; Fibromyalgia 729.1 ; Edema 782.3 ; Hypothyroidism 244.9 and Anemia 285.9 [facility] [id number] [place] [address] 46523- 4596 Sep, Anxiety disorder, unspecified 300.00 and Depressive disorder , not elsewhere classified 311 [facility] [id number] [place] [address] 37621- 6152 Sep, [facility] [id number] [place] [address] 80735- 3295 August, Generalized anxiety disorder 300.02 [facility] [id number] [address]- 0022 14 Aug, 2014 Closed fracture of lateral malleolus 824.2 [facility] [address] [address]- 5021 14 Jul, 2014 [facility] [address] [address]- 9498 Jul, [facility] [address] [address]- 7842 Jun, [facility] [address] [address]- 9669 Jun, [facility] [address] [address]- 8824 Jun, [facility] [id number] [address]- 0532 Jun, [facility] [address] [address]- 4501 Jun, [facility] [id number] [address]- 5552 Jun, [facility] [address] [address]- 2300 May, [facility] [address] [address]- 8736 May, [facility] [address] [address]- 8077 18 May, 2014 [facility] [address] [address]- 2539 May, [facility] [address] [address]- 6345 16 May, 2014 [facility] [address] [address]- 1933 May, [facility] [place] [facility] [address] [id number] [place] [address]- 8504 13 May, 2014 [facility] [place] [facility] [address] [id number] [place] [address]- 7286 13 May, 2014 [facility] [place] [facility] [address] [id number] [place] [address]- 8731 10 May, 2014 [facility] [place] [facility] [address] [id number] [place] [address]- 8689 10 May, 2014 [facility] [place] [facility] [address] [id number] [place] [address]- 0591 Apr, [facility] [place] [facility] [address] [id number] [place] [address]- 2359 Apr, [facility] [place] [facility] [address] [id number] [place] [address]- 8343 Mar, [facility] [place] [facility] [address] [id number] [place] [address]- 7643 Mar, [facility] [place] [facility] [address] [id number] [place] [address]- 1884 Mar, [facility] [place] [facility] [address] [id number] [place] [address]- 8661 Mar, [facility] [place] [facility] [address] [id number] [place] [address]- 6321 15 Mar, 2014 [facility] [place] [facility] [address] [id number] [place] [address]- 2892 Mar, [facility] [place] [facility] [address] [id number] [place] [address]- 2544 Mar, [facility] [place] [facility] [address] [id number] [place] [address]- 9000 Feb, [facility] [place] [facility] [address] [id number] [place] [address]- 5763 Feb, [facility] [place] [facility] [address] [id number] [place] [address]- 8521 Feb, [facility] [place] [facility] [address] [id number] [place] [address]- 6349 Jan, [facility] [place] [facility] [address] [id number] [place] [address]- 4850 Jan, [facility] [place] [facility] [address] [id number] [place] [address]- 6820 Jan, [facility] [place] [facility] [address] [id number] [place] [address]- 5086 Jan, [facility] [place] [facility] [address] [id number] [place] [address]- 0024 Jan, [facility] [place] [facility] [address] [id number] [place] [address]- 4019 Jan, [facility] [place] [facility] [address] [id number] [place] [address]- 7450 Jan, [facility] [place] [facility] [address] [id number] [place] [address]- 7003 Jan, [facility] [place] [facility] [address] [id number] [place] [address]- 8574 Jan, [facility] [place] [facility] [address] [id number] [place] [address]- 6439 Jan, [facility] [place] [facility] [address] [id number] [place] [address]- 2043 Nov, [facility] [place] [facility] [address] [id number] [place] [address]- 9039 Nov, [facility] [place] [facility] [address] [id number] [place] [address]- 5841 Nov, [facility] [place] [facility] [address] [id number] [place] 7817 Oct, [facility] [place] [facility] [address] [id number] [place] [address]- 1793 Oct, [facility] [place] [facility] [address] [id number] [place] [address]- 5401 Oct, 2013 [facility] [place] [facility] [address] [id number] [place] [address]- 1359 Oct, [facility] [place] [facility] [address] [id number] [place] [address]- 0036 Oct, 2013 [facility] [place] [facility] [address] [id number] [place] [address]- 9635 Oct, 2013 [facility] [place] [facility] [address] [id number] [place] [address]- 3221 Oct, [facility] [place] [facility] [address] [id number] [place] [address]- 2708 Oct, [facility] [place] [facility] [address] [id number] [place] [address]- 3382 Oct, [facility] [place] [facility] [address] [id number] [place] [address]- 5478 Sep, [facility] [place] [facility] [address] [id number] [place] [address]- 7685 Sep, [facility] [place] [facility] [address] [id number] [place] [address]- 1344 Sep, [facility] [place] [facility] [address] [id number] [place] [address]- 7072 Sep, [facility] [place] [facility] [address] [id number] [place] [address]- 3209 Sep, [facility] [place] [facility] [address] [id number] [place] [address]- 4677 Sep, [facility] [place] [facility] [address] [id number] [place] [address]- 6092 Sep, [facility] [place] [facility] [address] [id number] [place] [address]- 0605 Sep, [facility] [place] [facility] [address] [id number] [place] [address]- 7709 Sep, [facility] [place] [facility] [address] [id number] [place] [address]- 2627 August, [facility] [place] [facility] [address] [id number] [place] [address]- 3856 August, [facility] [place] [facility] [address] [id number] [place] [address]- 4001 August, [facility] [place] [facility] [address] [id number] [place] [address]- 2333 August, [facility] [place] [facility] [address] [id number] [place] [address]- 4386 August, [facility] [place] [facility] [address] [id number] [place] [address]- 0256 August, [facility] [place] [facility] [address] [id number] [place] [address]- 5108 Jul, [facility] [place] [facility] [address] [id number] [place] [address]- 8120 Jul, [facility] [place] [facility] [address] [id number] [place] [address]- 1184 Jul, [facility] [place] [facility] [address] [id number] [place] [address]- 4101 Jul, [facility] [place] [facility] [address] [id number] [place] [address]- 1637 Jul, [facility] [place] [facility] [address] [id number] [address]- 7800 Jul, [facility] [place] [facility] [address] [id number] [place] [address]- 9580 Jun, [facility] [place] [facility] [address] [id number] [place] [address]- 5493 Jun, [facility] [place] [facility] [address] [id number] [place] [address]- 8521 May, [facility] [place] [facility] [address] [id number] [place] [address]- 7030 19 May, 2013 [facility] [address] [id number] [place] [address]- 3328 May, [facility] [place] [facility] [address] [id number] [place] [address]- 4626 May, [facility] [address] [id number] [place] [address]- 6324 Apr, [facility] [address] [id number] [place] [address]- 8453 Apr, [facility] [address] [id number] [place] [address]- 2784 18 Mar, 2013 [facility] [address] [id number] [place] 4454 18 Mar, 2013 [facility] [address] [id number] [place] [address]- 9272 17 Mar, 2013 [facility] [address] [id number] [place] [address]- 2360 17 Mar, 2013 [facility] [address] [id number] [place] [address]- 7796 Mar, [facility] [address] [id number] [place] 3898 05 Mar, 2013 [facility] [place] [facility] [address] [id number] [place] [address]- 4234 Feb, [facility] [place] [facility] [address] [id number] [place] [address]- 7006 Feb, [facility] [place] [facility] [address] [id number] [place] [address]- 5607 14 Feb, 2013 [facility] [place] [facility] [address] [id number] [place] [address]- 2546 14 Feb, 2013 [facility] [place] [facility] [address] [id number] [place] [address]- 8133 Feb, [facility] [place] [facility] [address] [id number] [place] [address]- 1323 Feb, [facility] [place] [facility] [address] [id number] [place] [address]- 5124 Jan, [facility] [place] [facility] [address] [id number] [place] [address]- 7564 Jan, [facility] [place] [facility] [address] [id number] [place] [address]- 6954 Jan, [facility] [place] [facility] [address] [id number] [place] [address]- 6222 Jan, [facility] [place] [facility] [address] [id number] [place] [address]- 3635 Jan, [facility] [place] [facility] [address] [id number] [place] [address] Jan, [facility] [place] [facility] [address] [id number] [place] [address] Dec, [facility] [place] [facility] [address] [id number] [place] [address] Dec, [facility] [place] [facility] [address] [id number] [place] [address] Nov, [facility] [place] [facility] [address] [id number] [place] [address] Nov, [facility] [place] [facility] [address] [id number], [place] [address] Oct, [facility] [place] [facility] [address] [id number] [place] [address] Oct, [facility] [place] [facility] [address] [id number] [place] [address] Oct, [facility] [place] [facility] [address] [id number] [place] [address] Oct, [facility] [place] [facility] [address] [id number] [place] [address] Oct, [facility] [address] [id number] [place] [address] Oct, [facility] [address] [id number] [place] [address] Sep, [facility] [address] [id number] [place] [address] Sep, [facility] [place] [facility] [address] [id number] [place] [address] Sep, [facility] [address] [id number] [place] [address] Sep, [facility] [address] [id number] [place] [address] August, [facility] [address] [id number] [place] [address] August, [facility] [address] [id number] [place] [address] August, [facility] [address] [id number] [place] [address] August, [facility] [address] [id number] [place] [address] August, [facility] [address] [id number] [place] [address] Jul, [facility] [place] [facility] [address] [id number] [place] [address] 2005 Jul, [facility] [place] [facility] [address] [id number] [place] [address] 15 Jul, 2012 [facility] [place] [facility] [address] [id number] [place] [address] Jul, [facility] [place] [facility] [address] [id number] [place] [address] Jul, [facility] [place] [facility] [address] [id number] [place] [address] Jul, [facility] [address] [id number] [place] [address] Jul, [facility] [address] [id number] [place] [address] Jul, [facility] [address] [id number] [place] [address] Jul, [facility] [address] [id number] [place] [address] Jul, [facility] [address] [id number] [place] [id number] Jun, [facility] [address] [id number] [place] [address] Jun, [facility] [address] [id number] [place] [address] Jun, [facility] [address] [id number] [place] [address] Jun, [facility] [address] [id number] [place] [address] Jun, [facility] [address] [id number] [place] [address] May, [facility] [address] [id number] [place] [address] May, [facility] [address] [id number] [place] [address] May, [facility] [place] [facility] [address] [id number] [place] [address] Apr, [facility] [place] [facility] [address] [id number] [place] [address] Apr, [facility] [place] [facility] [address] [id number] [place] [address] Apr, [facility] [place] [facility] [address] [id number] [place] [address] Apr, [facility] [place] [facility] [address] [id number] [place] [address] Apr, [facility] [place] [facility] [address] [facility] [id number] [place] [address] Apr, [facility] [place] [facility] [address] [id number] [place] [address] Mar, [facility] [place] [facility] [address] [id number] [place] [address] Mar, [facility] [place] [facility] [address] [id number] [place] [address] Mar, [facility] [place] [facility] [address] [id number] [place] [address] Mar, [facility] [place] [facility] [address] [id number] [place] [address] Feb, [facility] [facility] [address] [id number] [place] [address] Feb, [facility] [place] [facility] [address] [id number] [place] [address] Feb, [facility] [place] [facility] [address] [id number], [place] [address] Feb, [facility] [place] [facility] [address] [id number], [place] [address] Feb, [facility] [place] [facility] [address] [id number] [place] [address] Feb, [facility] [place] [facility] [address] [id number], [place] [address] Feb, [facility] [place] [facility] [address] [facility] [id number], [place] [address] Feb, [facility] [place] [facility] [address] [id number] [place] [address] Feb, [facility] [place] [facility] [address] [id number] [place] [address] Feb, [facility] [place] [facility] [address] [id number] [place] [address] Feb, [facility] [place] [facility] [address] [id number] [place] [address] 76[address] Feb, [facility] [place] [facility] [address] [id number] [place] [address] 9[address] Feb, [facility] [place] [facility] [address] [id number] [place] [address] 7903 Feb, [facility] [place] [facility] [address] [facility] [id number] [place] [address] 93[address] Feb, [facility] [place] [facility] [address] [facility] [id number] [place] [address] 27[address] Feb, [facility] [place] [facility] [address] [id number] [place] [address] 97[address] Jan, [facility] [place] [facility] [address] [facility] [id number] [place] [address]- 9691 31 Jan, 2012 [facility] [facility] [address] [facility] [id number] [place] [address] 6270 Jan, [facility] [place] [facility] [address] [facility] [id number] [place] [address]- 7795 31 Jan, 2012 [facility] [facility] [address] [facility] [id number], [place] [address] 30 Jan, 2012 [facility] [place] [facility] [address] [id number] [place] [address]- 4362 Jan, [facility] [place] [facility] [address] [facility] [id number] [place] [address]- 8355 Jan, [facility] [facility] [address] [facility] [id number] [address] 16 Jan, 2012 [facility] [place] [facility] [address] [id number] [place] [address]- 8649 16 Jan, 2012 [facility] [place] [facility] [address] [id number] [place] [address]- 1630 15 Jan, 2012 [facility] [place] [facility] [address] [id number] [place] [address]- 8662 15 Jan, 2012 [facility] [place] [facility] [address] [id number] [place] [address] 6260 Jan, [facility] [address] [id number] [place] [address]- 4535 26 Dec, 2011 [facility] [address] [id number] [place] [address]- 1372 26 Dec, 2011 [facility] [place] [facility] [address] [id number] [place] [address]- 9395 24 Dec, 2011 [facility] [facility] [address] [id number] [place] [address]- 2862 23 Sep, 2011 [facility] [address] [id number] [place] [address]- 1646 22 Sep2011 [facility] [facility] [address] [id number] [place] [address]- 9713 21 Dec, 2011 [facility] [address] [id number] [place] [address]- 0592 20 Dec, 2011 [facility] [facility] [address] [id number] [place] [address]- 2549 20 Sep, 2011 [facility] [facility] [address] [id number] [place] [address]- 2545 07 Sep, 2011 [facility] [place] [facility] [address] [id number] [place] [address]- 2543 06 Sep, 2011 [facility] [place] [facility] [address] [id number] [place] [address]- 0066 06 Sep, 2011 [facility] [place] [facility] [address] [id number] [place] [address]- 5867 Dec, [facility] [address] [id number] [place] [address]- 5273 Nov, [facility] [address] [id number] [place] [address]- 0516 Nov, [facility] [address] [id number] [place] [address] 2546 Nov, [facility] [address] [id number] [place] [address]- 0632 Nov, [facility] [address] [id number] [place] [address]- 9664 Nov, [facility] [address] [id number] [place] [address]- 6114 Nov, [facility] [address] [id number] [place] [address]- 6101 Nov, [facility] [address] [id number] [place] [address]- 8201 Nov, [facility] [address] [id number] [place] [address] 6123 Oct, [facility] [address] [id number] [place] [address]- 0264 Oct, [facility] [address] [id number] [place] [address]- 4735 Oct, [facility] [address] [id number] [place] [address]- 8435 Oct, [facility] [address] [id number] [place] [address] 5637 Oct, [facility] [address] [id number] [place] [address]- 5488 Oct, [facility] [address] [id number] [place] [address]- 254 Oct, [facility] [address] [id number] [place] [address]- 4774 Sep, [facility] [address] [id number] [place] [address]- 9895 Sep, [facility] [address] [id number] [place] [address] 4211 August, [facility] [address] [id number] [place] [address]- 4187 August, [facility] [address] [id number] [place] [address]- 6362 August, [facility] [address] [id number] [place] [address] 7951 August, [facility] [address] [id number] [place] [address] 4531 Jul, [facility] [address] [id number] [place] [address]- 2789 Jul, [facility] [address] [id number] [place] [address]- 0374 Jul, [facility] [address] [id number] [place] [address]- 2060 Jul, [facility] [address] [id number] [place] [address]- 6352 Jul, [facility] [address] [id number] [place] [address]- 5911 Jul, [facility] [address] [id number] [place] [address]- 3138 Jul, [facility] [address] [id number] [place] [address]- 3638 Jul, [facility] [address] [id number] [place] [address]- 5419 Jul, [facility] [address] [id number] [place] [address]- 5449 Jun, [facility] [address] [id number] [place] [address]- 5268 19 Jun, 2011 [facility] [address] [id number] [place] [address]- 3986 15 Jun, 2011 [facility] [address] [id number] [place] [address]- 8520 14 Jun, 2011 [facility] [address] [id number] [place] [address]- 0351 12 Jun, 2011 [facility] [address] [id number] [place] [address]- 0780 09 Jun, 2011 [facility] [address] [id number] [place] [address]- 9070 Jun, [facility] [address] [id number] [place] [address]- 3299 25 May, 2011 [facility] [address] [id number] [place] [address]- 3327 24 May, 2011 [facility] [address] [id number] [place] [address]- 8809 16 May, 2011 [facility] [address] [id number] [place] [address]- 8358 16 May, 2011 [facility] [address] [id number] [place] [address]- 2020 May, [facility] [address] [id number] [place] [address]- 9721 27 Apr, 2011 [facility] [address] [id number] [place] [address]- 2937 Apr, [facility] [address] [id number] [place] 13 Apr, 2011 [facility] [address] [id number] [place] [address]- 3063 Apr, [facility] [address] [id number] [place] [address]- 8193 05 Apr, 2011 [facility] [address] [id number] [place] [address]- 8835 30 Mar, 2011 [facility] [address] [id number] [place] [address]- 3086 Mar, [facility] [address] [id number] [place] [address]- 0706 Mar, [facility] [address] [id number] [place] [address]- 0011 Mar, [facility] [facility] [address] [id number] [place] [address]- 1055 Mar, [facility] [address] [id number] [place] [address]- 0389 Mar, [facility] [address] [id number] [place] [address]- 7689 Mar, [facility] [address] [id number] [place] [address]- 3961 Feb, [facility] [address] [id number] [place] [address]- 2865 Feb, [facility] [address] [facility] [id number] [place] [address]- 1553 Feb, [facility] [address] [id number] [place] [address]- 7469 Feb, [facility] [address] [id number] [place] [address]- 7356 Jan, [facility] [address] [id number] [place] [address]- 5353 Jan, [facility] [address] [id number] [place] [address]- 6555 Jan, [facility] [address] [id number] [place] [address]- 2707 Jan, [facility] [id number], [place] [address]- 9458 Nov, [facility] [id number], [place] [address]- 0655 Mar, [facility] [id number], [place] [address]- 2578 Mar, [facility] [id number] [place] [address]- 9622 Mar, [facility] [id number] 8934 Mar, [facility] [id number], [place] [address]- 7041 Mar, [facility] [id number], [place] [address]- 7245 Mar, [facility] [id number] [place] [address]- 5435 Feb, [facility] [id number], [place] [address]- 9986 Feb, [facility] [id number] 8473 Jan, [facility] [id number], [place] [address]- 5126 Jan, [facility] [id number] [address] Jan, IMMUNIZATIONS No Known Immunizations SOCIAL HISTORY Never Assessed REASON FOR VISIT Requests return call PLAN OF CARE VITAL SIGNS MEDICATIONS Unknown [...] nerve at carpal tunnel-bilateral carpal tunnel surgery (summer of 2009) Surgical History Esophageal surgery-Dr. 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
--- OUTSIDE RECORDS SUMMARY | 2018-05-29 07:37 | XMS REPORT ---
Author Author ZHANE BOSCH [facility] Address [address] [place] [address] Care Team Providers Care Foam Rubber Curer Name Role Phone ZHANE BOSCH Unavailable PROBLEMS Type Condition ICD9-CM Code LQW95-FX Code Onset Dates Condition Status SNOMED Code Problem Low back pain M54.5 Active 283597323 Problem Abnormal chest CT R93.8 Active 726445039 Problem Dysthymic disorder F34.1 Active 78657412 Problem Generalized anxiety disorder F41.1 Active 46263004 Problem Coronary artery disease involving [place] coronary artery of [place] heart, angina presence unspecified I25.10 Active 5442194583948 Problem Restless leg G25.81 Active 45361238 Problem Hypothyroid E03.9 Active 26959343 Problem Insomnia G47.00 Active 031840536 Problem Asthma J45.909 Active 341087038 Problem Chronic kidney disease, unspecified N18.9 Active 247452378 Problem Palpitations R00.2 Active 79788777 Problem Anemia in chronic kidney disease D63.1 Active 579574939747623 Problem Depressed F32.9 Active 78525329 Problem Bipolar disorder, current episode manic without psychotic features F31.10 Active 574044415 Problem Primary osteoarthritis of left knee M17.12 Active 538602078 Problem Degenerative tear of medial meniscus of left knee M23.204 Active 103592747 Problem Chronic pain syndrome G89.4 Active 106342059 Problem Restless leg syndrome G25.81 Active 56551106 Problem History of colon polyps Z86.010 Active 605281378 Problem Functional 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 Active 24315889 Problem Chronic kidney disease, stage 4 (severe) N18.4 Active 109978437 Problem Stage 3 chronic kidney disease N18.3 Active 177419636 Problem Mood disorder F39 Active 70974357 Problem Seasonal allergic rhinitis due to pollen J30.1 Active 71937453 Problem Body mass index (BMI) of 40.0-44.9 in adult Z68.41 Active 914918549 Problem Other seasonal allergic rhinitis J30.2 Active 002796381 Problem Long-term use of high-risk medication Z79.899 Active 668652552 Problem Hypokalemia E87.6 Active 05128689 Problem Asthma with acute exacerbation in adult J45.901 Active 255123119 Problem History of anemia Z86.2 Active 926488488 Problem Vitamin D deficiency E55.9 Active 01014503 Problem Essential (primary) hypertension I10 Active 35273711 Problem Fibromyalgia M79.7 Active 073296234 Problem Mixed stress and urge urinary incontinence N39.46 Active [id number] ALLERGIES No Information ENCOUNTERS Encounter Location Date Diagnosis [facility], [place] [address] 18[address]- [address]704 Jan, [facility], [place] [address] 55853- 7655 Jan, [facility], [place] [address] 84216- 2687 Dec, Vitamin D deficiency E55.9 [facility], [place] [address] 15601 2544 Dec, Vitamin D deficiency E55.9 [facility], [place] [address] 46601 2548 24 Dec, 2017 Vitamin D deficiency E55.9 [facility], [place] [address] 65256 2546 12 Dec, 2017 [facility], [place] [address] 56454 2541 Dec, Fibromyalgia M79.7 [facility], [place] [address] 60447- 2929 Nov, [facility], [place] [address] 74189- 6713 Nov, [facility], [place] [address] 05623- 7269 Nov, [facility], [place] [address] [id number] [place] [address] 17462- 4566 Nov, Fibromyalgia M79.7 ; Vision changes H53.9 ; Chest wall pain R07.89 and Chronic pain syndrome G89.4 [facility], [place] [address] [place] [address] 14939- 0851 Nov, [facility], [place] [address] [id number] [place] [address] 89049- 8963 Nov, Rash of hands R21 [facility], [place] [id number] [place] [address] 24015- 9157 Nov, Generalized anxiety disorder F41.1 and Major depressive disorder, recurrent episode with anxious distress F33.9 [place] [id number] [place] [address] 98015- 3839 Nov, Fibromyalgia M79.7 [place] [id number] [place] [address] 63762- 2929 Nov, Complicated UTI (urinary tract infection) N39.0 [facility], [place] [id number] [place] [address] 87604- 7047 Oct, [place] [id number] [place] [address] 86998- 9367 Oct, Generalized anxiety disorder F41.1 and Major depressive disorder, recurrent episode with anxious distress F33.9 [facility], [place] [address] [place] [address] 50338- 8566 Oct, [facility], [place] [id number] [place] [address] 11798- 7691 Oct, Fibromyalgia M79.7 [facility], [place] [id number] [place] [address] 86407- 8496 Sep, Restless leg syndrome G25.81 and Restless leg G25.81 [facility], [place] [address] [address] Sep, [facility], [place] [id number] [place] [address] 49182- 0509 Sep, Seasonal allergic rhinitis due to pollen J30.1 ; Screening for breast cancer Z12.31 ; Chest pain at rest R07.9 ; Restless leg syndrome G25.81 ; Essential (primary) hypertension I10 and Depressed F32.9 [place] [address] 25252- 7036 August, Fibromyalgia M79.7 [place] [address] 19605- 1984 August, [place] [address] 05653- 3042 August, [place] [address] 94206- [address] August, [address] R93.8 [place] [address] 68870- 6775 August, Generalized anxiety disorder F41.1 and Major depressive disorder, recurrent episode with anxious distress F33.9 [place] [address] 47400- [address]69 August, Ab[address] chest [address] R93.8 [place] [address] 58251- 9615 Jul, [place] [address] 20071- 6081 Jul, Chronic kidney disease, stage 4 (severe) N18.4 [place] [id number] [place] [address] 54316- 5685 Jul, [place] [address] 60305- 5927 Jul, Restless leg G25.81 ; Mixed stress and urge urinary incontinence N39.46 and Fibromyalgia M79.7 [place] [address] 70365- 5806 Jul, Chronic kidney disease, stage 4 (severe) N18.4 [facility], [place] [id number] [place] [address] 95897- 6424 Jun, Orthostatic hypotension I95.1 ; Chronic kidney disease, stage 4 (severe) N18.4 ; Chest wall discomfort R07.89 and Body mass index (BMI) of 40.0-44.9 in adult Z68.41 [facility], [place] [id number] [place] [address] 02234- 8889 Jun, [facility], [place] [id number] [place] [address] 34715- 3841 Jun, Orthostatic hypotension I95.1 [place] [id number] [place] [address] 01102- 5069 Jun, [facility] [id number] [place] [address] 60778 -1481 Jun, Orthostatic hypotension I95.1 ; Dysuria R30.0 and Acute cystitis without hematuria N30.00 [facility], [place] [id number] [place] [address] 63602- 5020 Jun, [place] [id number] [place] [address] 82436- 5526 Jun, Chronic kidney disease, stage 4 (severe) N18.4 [place] [id number] [place] [address] 27160- 4371 Jun, Fibromyalgia M79.7 [facility], [place] [id number] [place] [address] 41320- 1766 Jun, [place] [id number] [place] [address] 32492- 3296 Jun, [facility], [place] [id number] [place] [address] 26215- [address] May, [address] R93.8 and Stage 3 chronic kidney disease N18.3 [place] [address] [place] [address]- 5105 May, Chronic kidney disease, stage 4 (severe) N18.4 [facility] [place] [id number] [place] [address] 24396- 8853 May, Chronic kidney disease, stage 4 (severe) N18.4 [facility], [place] [id number] [place] [address] 41274- [address] May, [address] R93.8 [facility], [place] [id number] [place] [address] 53536- 2172 May, [facility], [place] [id number] [place] [address] 80903- 6267 May, [place] [id number] [place] [address] 75705- 6339 May, Generalized anxiety disorder F41.1 and Major depressive disorder, recurrent episode with anxious distress F33.9 [facility], [place] [id number] [place] [address] 11192- 8339 May, Mood disorder F39 [place] [id number] [place] [address] 04096- 0406 Apr, [place] [id number] [place] [address] 21047- 0877 Apr, Infected skin lesion L08.9 and Muscle strain of right shoulder region, initial encounter S46.911A [facility], [place] [address] [place] [address] 90433- 4810 Apr, Generalized anxiety disorder F41.1 and Major depressive disorder, recurrent episode with anxious distress F33.9 [facility], [place] [id number] [place] [address] 14807- 6864 Apr, [place] [id number] [place] [address] 92761- 8620 Apr, Recent urinary tract infection Z87.440 and Hypothyroid E03.9 [facility], [place] [address] [place] [address] 95527- 5697 Apr, Generalized anxiety disorder F41.1 and Major depressive disorder, recurrent episode with anxious distress F33.9 [place] [address] [place] [address] 31062- 6461 Apr, Recent urinary tract infection Z87.440 [place] [id number] [place] [address] 83084- 2383 Mar, [facility] [id number] [place] [address] 68852 -8740 Mar, Dysuria R30.0 ; Acute cystitis without hematuria N30.00 and BMI 40.0-44.9, adult Z68.41 [place] [address] [place] [address] 00428- 3210 Mar, [place] [id number] [place] [address] 29199- 9539 Mar, [place] [id number] [place] [address] 40465- 5870 Mar, Generalized anxiety disorder F41.1 and Major depressive disorder, recurrent episode with anxious distress F33.9 [place] [address] [address]- 4918 Feb, Conjunctivitis, bacterial H10.9 [place] [address] [place] [address] 83774- 7425 Feb, [facility] [place] [address] [place] [address] 18296 -1292 Feb, Conjunctivitis, bacterial H10.9 [place] [id number] [place] [address] 13205- 6569 Feb, [facility] [address] [place] [address] 59498 -8030 Feb, Dysuria R30.0 ; Acute cystitis N30.00 and BMI 40.0-44.9, adult Z68.41 [place] [id number] [place] [address] 10970- 0343 Feb, [place] [address] 25082- 6789 Feb, Generalized anxiety disorder F41.1 and Major depressive disorder, recurrent episode with anxious distress F33.9 [place] [address] 52251- 6894 Feb, Mood disorder F39 and BMI 40.0-44.9, adult Z68.41 [place] [address] 62424- 7145 Jan, [place] [address] 02633- 1563 Jan, [place] [address] 89935- 4203 Jan, Hypothyroid E03.9 [place] [id number] [place] [address] 27410- 7279 Jan, [address] 41892- 6858 Jan, Chronic kidney disease, unspecified N18.9 ; Hypokalemia E87.6 ; Essential (primary) hypertension I10 ; Fibromyalgia M79.7 ; Coronary artery disease involving [place] coronary artery of [place] heart, angina presence unspecified I25.10 ; Hypothyroid E03.9 and Encounter for immunization Z23 [place] [id number] [place] [address] 70345- 2420 Jan, Hypothyroid E03.9 [place] [address] 92495- 7690 Jan, [place] [id number] [place] [address] 48406- 6479 Dec, Vitamin D deficiency E55.9 [place] [address] 03947- 3325 28 Dec, 2016 Primary osteoarthritis of left knee M17.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 [facility], [place] [address] [place] [address] 98332 2546 19 Dec, 2016 Fibromyalgia M79.7 [facility], [place] [address] [place] [address] 68668- 0966 18 Dec, 2016 Mood disorder F39 [facility], [place] [id number] [place] [address] 27019- 7455 13 Dec, 2016 [facility], [place] [address] [place] [address] 33963- 7538 13 Dec, 2016 Generalized anxiety disorder F41.1 and Major depressive disorder, recurrent episode with anxious distress F33.9 [place] [address] [place] [address] 52733- 6050 11 Dec, 2016 [place] [address] [place] [address] 14744- 4619 08 Dec, 2016 Streptococcal meningitis G00.2 [facility], [place] [address] [place] [address] 56481- 7261 07 Dec, 2016 Streptococcal meningitis G00.2 [facility], [place] [address] [place] [address] 55091- 7503 07 Dec, 2016 [facility], [place] [address] [place] [address] 39092 2548 06 Dec, 2016 Streptococcal meningitis G00.2 [facility], [place] [address] [place] [address] 21895- 254 06 Dec, 2016 [facility], [place] [address] [id number] [place] [address] 15641- 7718 06 Dec, 2016 Major depressive disorder, recurrent episode with anxious distress F33.9 [facility], [place] [address] [place] [address] 30861- 2280 Nov, Fever, unspecified fever cause R50.9 [facility], [place] [id number] [place] [address] 04055- 1583 Nov, [facility], [place] [id number] [place] [address] 48133- 1936 Nov, Hypothyroid E03.9 [facility], [place] [id number] [place] [address] 10440- 3866 Nov, Generalized anxiety disorder F41.1 and Major depressive disorder, recurrent episode with anxious distress F33.9 [facility], [place] [id number] [place] [address] 66194- 6353 Nov, [facility] [address] [id number] Oct, Dental examination Z01.20 [place] [address] [id number] [place] [address] 02382- 3874 Oct, Generalized anxiety disorder F41.1 and Major depressive disorder, recurrent episode with anxious distress F33.9 [facility], [place] [id number] [place] [address] 67248- 6682 Oct, Chronic kidney disease, stage 4 (severe) N18.4 [place] [id number] [place] [address] 74103- 2041 Oct, [facility], [place] [address] [id number] [place] [address] 21759- 7712 Oct, Fibromyalgia M79.7 [facility], [place] [address] [id number] [place] [address] 82176- 0967 Oct, [facility], [place] [address] [place] [address] 08049- 7649 Oct, Generalized anxiety disorder F41.1 ; Major depressive disorder, recurrent episode with anxious distress F33.9 and Bipolar disorder, current episode manic without psychotic features F31.10 [facility] [place] [address] [place] [address] 86820- 1459 Sep, [facility] [place] [id number] [place] [address] 72490- 7883 Sep, [place] [id number] [place] [address] 65088- 5824 Sep, Vitamin D deficiency E55.9 [place] [id number] [place] [address] 72372- 6195 14 Sep, 2016 Vitamin D deficiency E55.9 [place] [address] [id number] [place] [address] 72670- 4278 Sep, [place] [id number] [place] [address] 04418- 5311 Sep, Chronic kidney disease, stage 4 (severe) N18.4 ; Hypothyroid E03.9 ; Restless leg G25.81 ; Fibromyalgia M79.7 ; Essential ( primary) hypertension I10 ; Vitamin D deficiency E55.9 ; Dyspepsia R10.13 ; Anemia in chronic kidney disease D63.1 ; Chronic kidney disease, unspecified N18.9 ; Coronary artery disease involving [place] coronary artery of [place] heart , angina presence unspecified I25.10 ; Screening breast examination Z12.39 and Low back pain M54.5 [place] [id number] [place] [address] 50159- 6371 August, Generalized anxiety disorder F41.1 and Major depressive disorder, recurrent episode with anxious distress F33.9 [place] [id number] [place] [address] 28560- 1575 August, Generalized anxiety disorder F41.1 and Major depressive disorder, recurrent episode with anxious distress F33.9 [place] [id number] [place] [address] 95306- 1730 August, Fibromyalgia M79.7 [place] [id number] [place] [address] 44525- 3096 Jul, Generalized anxiety disorder F41.1 and Major depressive disorder, recurrent episode with anxious distress F33.9 [place] [id number] [place] [address] 33477- 1526 Jul, Fibromyalgia M79.7 [place] [address] [place] [address] 05602- 4854 Jul, Generalized anxiety disorder F41.1 [place] [address] [id number] [place] [address] 21186- 9535 May, [place] [address] [id number] [place] [address] 23065- 4588 May, Hypothyroid E03.9 [place] [address] [id number] [place] [address] 06572- 1737 May, Chronic kidney disease, stage 4 (severe) N18.4 ; Hypothyroid E03.9 ; Restless leg G25.81 ; Fibromyalgia M79.7 ; Essential ( primary) hypertension I10 ; Vitamin D deficiency E55.9 ; Dyspepsia R10.13 ; Acute non-recurrent maxillary sinusitis J01.00 ; Anemia in chronic kidney disease D63.1 ; Chronic kidney disease, unspecified N18.9 and Coronary artery disease involving [place] coronary artery of [place] heart, angina presence unspecified I25.10 [place] [id number] [place] [address] 15285- 2143 May, Vitamin D deficiency, unspecified E55.9 [place] [id number] [place] [address] 46840- 1315 May, Generalized anxiety disorder F41.1 and Major depressive disorder, recurrent episode with anxious distress F33.9 [place] [id number] [place] [address] 79022- 5319 Apr, Pain in right knee M25.561 and Pain in left knee M25.562 [place] [id number] [place] [address] 71220- 6831 Apr, [place] [address] [id number] [place] [address] 89258- 7596 Apr, [place] [address] [place] [id number] [place] [address] 41223- 0504 Apr, [place] [address] [place] [address] 65194- 0701 Mar, Generalized anxiety disorder F41.1 and Major depressive disorder, recurrent episode with anxious distress F33.9 [place] [address] [id number] [place] [address] 42751- 8979 Mar, Generalized anxiety disorder F41.1 and Major depressive disorder, recurrent episode with anxious distress F33.9 [place] [address] [place] [id number] [place] [address] 89418- 9908 Mar, [place] [address] 15862- 1852 Mar, [place] [address] [place] [id number] [place] [address] 33968- 0745 Mar, [place] [address] [place] [id number] [place] [address] 38278- 0838 Mar, Asthma J45.909 and Fibromyalgia M79.7 [place] [address] [place] [id number] [place] [address] 66042- 9874 Mar, Chronic kidney disease, stage 4 (severe) N18.4 ; Vitamin D deficiency E55.9 and Essential (primary) hypertension I10 [place] [address] [place] [id number] [place] [address] 41745- 2458 Feb, [place] [address] [place] [id number] [place] [address] 28572- 5830 Feb, Dysuria R30.0 ; Mixed stress and urge urinary incontinence N39.46 ; Fibromyalgia M79.7 and Chronic kidney disease, stage IV (severe) N18.4 [place] [address] [place] [id number] [place] [address] 91904- 9875 Feb, Chronic kidney disease, stage 4 (severe) N18.4 [place] [address] [place] [id number] [place] [address] 50940- 0451 Feb, Chronic kidney disease, stage 4 (severe) N18.4 [facility] [place] [address] [place] [id number] [place] [address] 57047- 6849 Feb, [facility], [place] [address] [place] [id number] [place] [address] 58716- 0264 Feb, Vitamin D deficiency, unspecified E55.9 [place] [address] 22290- 5090 Jan, [facility] [place] [address] 84439- 1614 Jan, [facility], [place] [id number] [place] [id number]- [address] Dec, [place] [address] [address] Dec, Chronic kidney disease, stage 4 (severe) N18.4 [place] [id number] [place] [id number]- [address] Dec, Dysthymic disorder F34.1 and Generalized anxiety disorder F41.1 [place] [id number] [place] [address]- [address] Dec, [place] [id number] [place] [address] 118[address]- 5989 Dec, [place] [id number] [place] [address] 601[address]- 9766 Dec, Dysthymic disorder F34.1 and Generalized anxiety disorder F41.1 [place] [id number] [place] [address] 33891- [address]64 Dec, Dysuria R30.0 ; Chronic kidney disease, stage 4 (severe) N18.4 ; Hypertension I10 ; Dyspepsia R10.13 ; Yeast dermatitis B37.2 ; Palpitations R00.2 ; Hypothyroid E03.9 ; Functional 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 and Other seasonal allergic rhinitis J30.2 [facility] [id number] [place] [id number] Dec, [facility] [id number] [place] [phone] Nov, Dysuria R30.0 and Stress incontinence N39.3 [facility], [place] [id number] [place] [address] 94268- 0545 Nov, [facility], [place] [id number] [place] [address] 02360- 5868 Nov, [facility], [place] [id number] [place] [address] 76664- 5411 Nov, Osteoarthritis of knees, bilateral M17.0 [place] [id number] [place] [address] 87862- 8569 Nov, Dysthymic disorder F34.1 and Generalized anxiety disorder F41.1 [place] [id number] [place] [address] 19292- 1440 Nov, [facility], [place] [id number] [place] [address] 29914- 9028 Nov, [facility], [place] [id number] [place] [address] 12205- 7536 Nov, Urgency of urination R39.15 [facility], [place] [id number] [place] [address] 45893- 5126 Nov, [facility], [place] [id number] [place] [address] 91957- 7953 Nov, Chronic kidney disease, stage 4 (severe) N18.4 [facility], [place] [id number] [place] [address] 45576- 6740 Oct, Hypertension I10 ; Coronary artery disease involving [place] coronary artery of [place] heart, angina presence unspecified I25.10 ; Palpitations R00.2 ; Hypothyroid E03.9 ; Right foot pain M79.671 ; Functional 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 and Other seasonal allergic rhinitis J30.2 [facility], [place] [address] [place] [address] 6977 Oct, Dysthymic disorder F34.1 and Generalized anxiety disorder F41.1 [facility], [place] [address] [address] 7536 Sep, [facility], [place] [address] [address]- 1109 Sep, [facility], [place] [id number] [place] [address] 22114- 2456 Sep, [facility], [place] [id number] [place] [address] 91769- 4825 Sep, [facility], [place] [id number] [place] [address] 26936- 1706 Sep, [facility], [place] [id number] [place] [address] 12891- 7724 Sep, Dysthymic disorder F34.1 and Generalized anxiety disorder F41.1 [facility], [place] [address] [place] [address] 65429- 6752 Sep, Asthma with acute exacerbation in adult J45.901 ; Dysuria R30.0 ; Chronic kidney disease, stage 4 (severe) N18.4 and History of anemia Z86.2 [place] [address] [address]- 4388 Sep, Generalized anxiety disorder F41.1 and Dysthymic disorder F34.1 [facility], [place] [address] [address]- 8755 August, Screening breast examination Z12.39 and Acute recurrent maxillary sinusitis J01.01 [facility], [place] [id number] [place] [address] 24736- 6053 August, Osteoarthritis of knees, bilateral M17.0 [facility], [place] [address] [address]- 3131 August, Chronic kidney disease, stage 4 (severe) N18.4 ; Acute non- recurrent maxillary sinusitis J01.00 ; Urinary problem R39.89 ; Bowel habit changes R19.4 ; Functional 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 and History of colon polyps Z86.010 [place] [id number] [place] [address] 39690- 8494 29 Jul, 2015 Dysthymic disorder F34.1 and Generalized anxiety disorder F41.1 [place] [id number] [place] [address] 66792- 7392 Jul, [place] [id number] [place] [address] 40207- 8905 18 Jul, 2015 Dysthymic disorder F34.1 ; Generalized anxiety disorder F41.1 and [facility] use of drug Z79.899 [place] [id number] [place] [address] 11350- 1972 Jul, [place] [id number] [place] [address] 33939- 3406 16 Jun, 2015 [place] [id number] [place] [address] 35502- 6135 08 Jun, 2015 [place] [id number] [place] [address] 26223- 8057 May, [place] [id number] [place] [address] 31809- 3424 May, Dysthymic disorder F34.1 and Generalized anxiety disorder F41.1 [place] [id number] [place] [address] 12304- 6824 Apr, Kidney disease N28.9 [place] [id number] [place] [address] 64282- 9168 Apr, Generalized anxiety disorder F41.1 and Dysthymic disorder F34.1 [place] [id number] [place] [address] 24393- 2004 Apr, Chronic kidney disease, stage 4 (severe) N18.4 [place] [address] [place] [address]- 6696 Apr, Generalized anxiety disorder F41.1 ; Major depression, recurrent F33.9 and Sleep disturbance G47.9 [facility], [place] [id number] [place] [address] 86094- 9696 Mar, Generalized anxiety disorder F41.1 and Dysthymic disorder F34.1 [facility], [place] [address] 20638- 6785 Mar, Generalized anxiety disorder F41.1 ; Dysthymic disorder F34.1 and Insomnia G47.00 [place] [id number] [place] [address] 87862- 3004 Mar, [place] [id number] [place] [address] 68450- 0762 Mar, [facility], [place] [address] 69505- 3891 Mar, Osteoarthritis of knees, bilateral M17.0 [facility], [place] [id number] [place] [address] 09068- 1149 Mar, Hypertension I10 ; Hypothyroid E03.9 ; Dysthymic disorder F34.1 ; Chronic kidney disease, stage 4 (severe) N18.4 and Nausea & vomiting R11.2 [facility], [place] [id number] [place] [address] 16220- 6365 Mar, Generalized anxiety disorder F41.1 ; Dysthymic disorder F34.1 and Insomnia G47.00 [facility], [place] [id number] [place] [address] 34503- 5325 Mar, Dehydration E86.0 ; Chronic kidney disease, stage 4 (severe ) N18.4 and Nausea & vomiting R11.2 [facility] [id number] [place] [address] 24670 -4947 08 Mar, 2015 Gastroenteritis K52.9 [facility], [place] [id number] [place] [address] 97368- 3028 Mar, [place] [id number] [place] [address] 54029- 2028 Mar, [address] 75912- 7001 Feb, Dysthymic disorder F34.1 and Generalized anxiety disorder F41.[address] 52006- 9920 Jan, UTI (urinary tract infection) N39.0 ; Asthma J45.909 ; Coronary artery disease involving [place] coronary artery of [place] heart, angina presence unspecified I25.10 ; Hypertension I10 ; Hypothyroid E03.9 ; Vitamin D deficiency E55.9 ; Insomnia G47.00 ; Palpitations R00.2 ; Depressed F32.9 ; Restless leg G25.81 and Anxiety F41.[address] 93250- 0393 Jan, Dysthymic disorder F34.1 and Generalized anxiety disorder F41.[address] 76450- 0360 Jan, [address] 64076- 8762 Dec, [address] [id number] [place] [address] 50672- 6351 Dec, Alkalosis 276.3 ; Chronic kidney disease, 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.4 ; Hyperpotassemia 276.7 ; Secondary hyperparathyroidism, renal 588.81 ; Proteinuria 791.0 ; Unspecified vitamin D deficiency 268.9 ; Anemia in chronic kidney disease 285.21 ; Other and unspecified hyperlipidemia 272.4 ; Hypertension, essential, benign 401.1 and Chronic kidney disease (CKD), stage III (moderate) 585.3 [address] [id number] [place] [address] 63911- 8215 16 Dec, [address] 29486- 4440 Dec, Depressive disorder, not elsewhere classified 311 and Generalized anxiety disorder 300.02 [place] [id number] [place] [address] 41696- 9952 Dec, [facility], [place] [id number] [place] [address] 23542- 5791 Dec, [place] [address] 56988- 7815 Nov, Depressive disorder, not elsewhere classified 311 and Generalized anxiety disorder 300.02 [place] [address] 34312- 1749 Nov, Arthritis of both knees 716.96 [place] [address] 51004- 9198 Nov, PAF (paroxysmal atrial fibrillation) 427.31 ; CAD (coronary artery disease) 414.00 ; Chest pain 786.50 and Chronic kidney disease (CKD) stage G4/A1, severely decreased glomerular filtration rate (GFR) between 15-29 mL/min/1.73 square meter and albuminuria creatinine ratio less than 30 mg/g 585.4 [address] [id number] [place] [address] 10683- 3845 Oct, Coronary atherosclerosis of unspecified type of vessel, [place] or graft 414.00 ; Chronic kidney disease, 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.4 ; Hypertension 401.9 and Edema 782.3 [address] [id number] [place] [address] 98173- 6788 Oct, Depressive disorder, not elsewhere classified 311 and Generalized anxiety disorder 300.02 [place] [id number] [place] [address] 16059- 9949 Oct, Depressive disorder, not elsewhere classified 311 and Generalized anxiety disorder 300.02 [place] [id number] [place] [address] 83543- 2135 Oct, [place] [id number] [place] [address] 96304- 6350 Oct, [place] [id number] [place] [address] 19883- 5497 Sep, [place] [id number] [place] [address] 02747- 2171 Sep, Chronic kidney disease, 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.[address] 24646- 3429 Sep, [place] [id number] [place] [address] 56291- 5686 Sep, Coronary atherosclerosis of unspecified type of vessel, [place] or graft 414.00 ; Hypertension 401.9 ; Edema 782.3 and Hypothyroidism 244.9 [id number] [place] [address] 04338- 5020 Sep, Coronary atherosclerosis of unspecified type of vessel, [place] or graft 414.00 ; Hypertension 401.9 ; Fibromyalgia 729.1 ; Edema 782.3 ; Hypothyroidism 244.9 and Anemia 285.9 [id number] [place] [address] 22045- 9279 Sep, Anxiety disorder, unspecified 300.00 and Depressive disorder , not elsewhere classified 311 [id number] [place] [address] 04416- 7672 Sep, [id number] [place] [address] 13504- 3831 August, Generalized anxiety disorder 300.02 [id number] [place] [address] 17991- 5846 August, Closed fracture of lateral malleolus 824.[address] 46073- 0823 Jul, [id number] [place] [address] 32606- 8511 Jul, [address] 87031- 1364 Jun, [facility] [place] [facility] [address] [id number] [place] [address]- 3542 Jun, [facility] [place] [facility] [address] [facility] [id number] [place] [address]- 5392 Jun, [facility] [place] [facility] [address] [facility] [id number] [place] [address]- 5810 Jun, [facility] [place] [facility] [address] [facility] [id number] [place] [address]- 7264 Jun, [facility] [place] [facility] [address] [id number] [place] [address]- 8469 Jun, [facility] [place] [facility] [address] [facility] [id number] [place] [address]- 2098 May, 2014 [facility] [place] [facility] [address] [facility] [id number] [place] [address]- 0603 19 May, 2014 [facility] [place] [facility] [address] [facility] [id number] [place] [address]- 0318 18 May, 2014 [facility] [place] [facility] [address] [facility] [id number] [place] [address]- 1570 18 May, 2014 [facility] [place] [facility] [address] [facility] [id number] [place] [address]- 2288 16 May, 2014 [facility] [place] [facility] [address] [facility] [id number], [place] [address]- 7037 16 May, 2014 [facility] [place] [facility] [address] [facility] [id number], [place] [address]- 1350 13 May, 2014 [facility] [place] [facility] [address] [facility] [id number] [place] [address]- 2302 13 May, 2014 [facility] [place] [facility] [address] [facility] [id number], [place] [address]- 6068 10 May, 2014 [facility] [place] [facility] [address] [facility] [id number], [place] [address]- 8629 10 May, 2014 [facility] [place] [facility] [address] [id number] [place] [address]- 8723 Apr, [facility] [place] [facility] [address] [id number] [place] [address]- 6827 Apr, [facility] [place] [facility] [address] [id number] [place] [address]- 8740 Mar, [facility] [place] [facility] [address] [id number] [place] [address]- 1499 Mar, [facility] [place] [facility] [address] [id number] [place] [address]- 7482 Mar, [facility] [place] [facility] [address] [id number] [place] [address]- 9599 Mar, [facility] [place] [facility] [address] [id number] [place] [address]- 6604 Mar, [facility] [place] [facility] [address] [id number] [place] [address]- 0670 Mar, [facility] [place] [facility] [address] [id number] [place] [address]- 6375 Mar, [facility] [place] [facility] [address] [id number] [place] [address]- 8986 Feb, [facility] [place] [facility] [address] [id number] [place] [address]- 6816 Feb, [facility] [place] [facility] [address] [id number] [place] [address]- 5221 Feb, [facility] [place] [facility] [address] [id number] [place] [address]- 8210 Jan, [facility] [place] [facility] [address] [id number] [place] [address]- 1905 Jan, [facility] [place] [facility] [address] [id number] [place] [address]- 7058 Jan, [facility] [place] [facility] [address] [id number] [place] [address]- 2497 Jan, [facility] [place] [facility] [address] [id number] [place] [address]- 2854 Jan, [facility] [place] [facility] [address] [id number] [place] 9477 Jan, [facility] [place] [facility] [address] [id number] [place] [address]- 0381 Jan, [facility] [place] [facility] [address] [id number] [place] [address]- 6470 Jan, [facility] [place] [facility] [address] [id number] [place] [address]- 9912 Jan, [facility] [place] [facility] [address] [id number] [place] [address]- 8310 Jan, [facility] [place] [facility] [address] [id number] [place] [address]- 1146 Nov, [facility] [place] [facility] [address] [id number] [place] [address]- 7626 Nov, [facility] [place] [facility] [address] [id number] [place] [address]- 5484 Nov, [facility] [place] [facility] [address] [id number] [place] [address]- 9575 Oct, [facility] [place] [facility] [address] [id number] [place] [address]- 1203 Oct, [facility] [place] [facility] [address] [id number] [place] [address]- 8266 Oct, [facility] [place] [facility] [address] [id number] [place] [address]- 3417 Oct, [facility] [place] [facility] [address] [id number] [place] [address]- 5614 Oct, [facility] [place] [facility] [address] [id number] [place] [address]- 6256 Oct, [facility] [place] [facility] [address] [id number] [place] [address]- 0828 Oct, [facility] [place] [facility] [address] [id number] [place] [address]- 6684 Oct, [facility] [place] [facility] [address] [id number] [place] [address]- 6488 Oct, [facility] [place] [facility] [address] [id number] [place] [address]- 9177 Sep, [facility] [place] [facility] [address] [id number] [place] [address]- 1869 Sep, [facility] [place] [facility] [address] [id number] [place] [address]- 7119 Sep, [facility] [place] [facility] [address] [id number] [place] [address]- 9262 Sep, [facility] [place] [facility] [address] [id number] [place] [address]- 4922 Sep, [facility] [place] [facility] [address] [id number] [place] [address]- 0647 Sep, [facility] [place] [facility] [address] [id number] [place] [address]- 9546 Sep, [facility] [place] [facility] [address] [id number] [place] [address]- 5787 Sep, [facility] [place] [facility] [address] [id number] [place] [address]- 0555 Sep, [facility] [place] [facility] [address] [id number] [place] [address]- 3234 August, [facility] [place] [facility] [address] [id number] [place] [address]- 0502 August, [facility] [place] [facility] [address] [id number] [place] [address]- 2111 August, [facility] [place] [facility] [address] [id number] [place] [address]- 6207 August, [facility] [place] [facility] [address] [id number] [place] [address]- 7938 August, [facility] [place] [facility] [address] [id number] [place] [address]- 9564 August, [facility] [place] [facility] [address] [id number] [place] [address]- 2171 Jul, [facility] [place] [facility] [address] [id number] [place] [address]- 1118 Jul, [facility] [place] [facility] [address] [id number] [place] [address]- 7976 Jul, [facility] [place] [facility] [address] [id number] [place] [address]- 3177 Jul, [facility] [place] [facility] [address] [id number] [place] [address]- 6511 Jul, [facility] [place] [facility] [address] [id number] [place] [address]- 9537 Jul, [facility] [place] [facility] [address] [id number] [place] [address]- 0523 Jun, [facility] [place] [facility] [address] [id number] [place] [address]- 4028 Jun, [facility] [place] [facility] [address] [id number] [place] [address]- 0804 May, [facility] [place] [facility] [address] [id number] [place] [address]- 4738 May, [facility] [place] [facility] [address] [id number] [place] [address]- 0515 May, [facility] [place] [facility] [address] [id number] [place] [address]- 0603 May, [facility] [place] [facility] [address] [id number] [place] [address]- 1959 Apr, [facility] [place] [facility] [address] [id number] [place] [address]- 2257 Apr, [facility] [address] [id number] [place] [address]- 9094 18 Mar, 2013 [facility] [place] [facility] [address] [id number] [place] 9498 18 Mar, 2013 [facility] [address] [id number] [place] 9650 17 Mar, 2013 [facility] [place] [facility] [address] [id number] [place] [address]- 7529 17 Mar, 2013 [facility] [place] [facility] [address] [id number] [place] 8420 Mar, [facility] [place] [facility] [address] [id number] [place] [address]- 5578 Mar, [facility] [place] [facility] [address] [facility] [id number] [place] [address]- 6136 Feb, [facility] [place] [facility] [address] [id number] [place] [address]- 4896 Feb, [facility] [place] [facility] [address] [facility] [id number] [place] [address]- 8450 14 Feb, 2013 [facility] [place] [facility] [address] [facility] [id number] [place] [address]- 3775 14 Feb, 2013 [facility] [place] [facility] [address] [id number] [place] [address]- 8252 05 Feb, 2013 [facility] [place] [facility] [address] [facility] [id number], [place] [address]- 1186 05 Feb, 2013 [facility] [place] [facility] [address] [id number] [place] [address]- 5389 24 Jan, 2013 [facility] [place] [facility] [address] [facility] [id number] [place] [address]- 1936 24 Jan, 2013 [facility] [place] [facility] [address] [id number], [place] [address]- 6870 Jan, [facility] [place] [facility] [address] [id number] [place] [address]- 1729 Jan, [facility] [place] [facility] [address] [id number] [place] [address]- 0185 Jan, [facility] [place] [facility] [address] [id number] [place] [address] Jan, [facility] [place] [facility] [address] [id number] [place] [address] Dec, [facility] [place] [facility] [address] [id number] [place] [address] Dec, [facility] [place] [facility] [address] [id number] [place] [address] Nov, [facility] [place] [facility] [address] [id number] [place] [address] Nov, [facility] [place] [facility] [address] [id number] [place] [address] Oct, [facility] [place] [facility] [address] [id number] [place] [address] Oct, [facility] [place] [facility] [address] [id number] [place] [address] Oct, [facility] [place] [facility] [address] [id number] [place] [address] Oct, [facility] [place] [facility] [address] [id number] [place] [address] Oct, [facility] [place] [facility] [address] [id number] [place] [address] Oct, [facility] [place] [facility] [address] [id number] [place] [address] Sep, [facility] [place] [facility] [address] [id number] [place] [address] Sep, [facility] [place] [facility] [address] [id number] [place] [address] Sep, [facility] [address] [id number] [place] [address] Sep, [facility] [address] [id number] [place] [address] August, [facility] [address] [id number] [place] [address] August, [facility] [address] [id number] [place] [address] 2021 August, [facility] [address] [id number] [place] [address] August, [facility] [address] [id number] [place] [address] August, [facility] [address] [id number] [place] [address] Jul, [facility] [place] [facility] [address] [id number] [place] [address] Jul, [facility] [address] [id number] [place] [address] Jul, [facility] [place] [facility] [address] [id number] [place] [address] Jul, [facility] [address] [id number] [place] [address] Jul, [facility] [place] [facility] [address] [id number] [place] [address] Jul, [facility] [place] [facility] [address] [id number] [place] [address] Jul, [facility] [place] [facility] [address] [id number] [place] [address] Jul, [facility] [place] [facility] [address] [id number] [place] [address] Jul, [facility] [place] [facility] [address] [id number] [place] [address] Jul, [facility] [address] [id number] [place] [id number] Jun, [facility] [address] [facility] [id number] [place] [address] Jun, [facility] [address] [id number] [place] [address] Jun, [facility] [address] [id number] [place] [address] Jun, [facility] [address] [id number] [place] [address] Jun, [facility] [address] [facility] [id number] [place] [address] May, [facility] [address] [id number] [place] [address] May, [facility] [address] [facility] [id number] [place] [address]- [address]99 May, [facility] [address] [id number] [place] [address] Apr, [facility] [address] [facility] [id number] [place] [address] Apr, [facility] [address] [id number] [place] [address] Apr, [facility] [address] [id number] [place] [address] Apr, [facility] [address] [id number] [place] [address] Apr, [facility] [address] [facility] [id number] [place] [address]- [address] Apr, [facility] [address] [id number] [place] [address] Mar, [facility] [place] [facility] [address] [id number] [place] [address]481 Mar, [facility] [place] [facility] [address] [id number] [place] [address]- [address] Mar, [facility] [place] [facility] [address] [id number] [place] [address] Mar, [facility] [place] [facility] [address] [id number] [place] [address] Feb, [facility] [place] [facility] [address] [id number] [place] [address] Feb, [facility] [place] [facility] [address] [id number] [place] [address] Feb, [facility] [place] [facility] [address] [id number] [place] [address] 25[address] Feb, [facility] [place] [facility] [address] [id number] [place] [address] 8604 Feb, [facility] [place] [facility] [address] [id number] [place] [address] 125[address] Feb, [facility] [place] [facility] [address] [id number] [place] [address] 4[address] Feb, [facility] [place] [facility] [address] [facility] [id number], [place] [address] Feb, [facility] [place] [facility] [address] [id number], [place] [address] Feb, [facility] [place] [facility] [address] [id number] [place] [address] 0[address] Feb, [facility] [place] [facility] [address] [id number], [place] [address] Feb, [facility] [place] [facility] [address] [id number], [place] [address] Feb, [facility] [place] [facility] [address] [id number], [place] [address] 2[address] Feb, [facility] [place] [facility] [address] [id number] [place] [address]- 7273 Feb, [facility] [place] [facility] [address] [id number][place] [address] [address] Feb, [facility] [place] [facility] [address] [facility] [id number] [place] [address]- 1720 Feb, [facility] [place] [facility] [address] [id number], [place] [address] 9[address] Jan, [facility] [place] [facility] [address] [id number] [place] [address] 1996 Jan, [facility] [place] [facility] [address] [id number] [place] [address]- 9530 Jan, [facility] [place] [facility] [address] [facility] [id number], [place] [address] Jan, [facility] [place] [facility] [address] [id number], [place] [address] 3975 Jan, [facility] [place] [facility] [address] [id number], [place] [address] Jan, [facility] [place] [facility] [address] [facility] [id number], [place] [address]- 9978 Jan, [facility] [place] [facility] [address] [id number], [place] [address] 75[address] Jan, [facility] [place] [facility] [address] [facility] [id number], [place] [address] 40[address] 16 Jan, 2012 [facility] [place] [facility] [address] [id number], [place] [address] 2027 Jan, [facility] [place] [facility] [address] [facility] [id number], [place] [address]- 1721 Jan, [facility] [place] [facility] [address] [facility] [id number], [place] [address] 4054 Jan, [facility] [place] [facility] [address] [id number] [place] [address] 2546 26 Sep, 2011 [facility] [place] [facility] [address] [id number] [place] [address] 2546 26 Sep, 2011 [facility] [place] [facility] [address] [id number] [place] [address] 2546 24 Sep, 2011 [facility] [place] [facility] [address] [id number] [place] [address] 2546 23 Sep, 2011 [facility] [place] [facility] [address] [id number] [place] [address] 2546 22 Sep, 2011 [facility] [place] [facility] [address] [id number] [place] [address] 2546 21 Sep, 2011 [facility] [place] [facility] [address] [id number] [place] [address] 2541 20 Sep, 2011 [facility] [place] [facility] [address] [id number] [place] [address] 2544 20 Sep, 2011 [facility] [place] [facility] [address] [id number] [place] [address] 2547 07 Sep, 2011 [facility] [place] [facility] [address] [id number] [place] [address] 2546 06 Sep, 2011 [facility] [place] [facility] [address] [id number] [place] [address] 2544 06 Sep, 2011 [facility] [place] [facility] [address] [id number] [place] [address] 2546 05 Sep, 2011 [facility] [place] [facility] [address] [id number] [place] [address] 254 23 Nov, 2011 [facility] [place] [facility] [address] [id number] [place] [address] 2546 17 Nov, 2011 [facility] [place] [facility] [address] [id number] [place] [address]- 2546 13 Nov, 2011 [facility] [place] [facility] [address] [id number] [place] [address] 06[address] Nov, [facility] [place] [facility] [address] [id number] [place] [address]- 0845 Nov, [facility] [place] [facility] [address] [id number] [place] [address]- 9842 Nov, [facility] [place] [facility] [address] [id number] [place] [address] 8362 Nov, [facility] [place] [facility] [address] [id number] [place] [address] 2943 Nov, [facility] [place] [facility] [address] [id number] [place] [address]- 9224 Oct, [facility] [place] [facility] [address] [id number] [place] [address]- 5477 Oct, [facility] [place] [facility] [address] [id number] [place] [address]- 5983 Oct, [facility] [place] [facility] [address] [id number] [place] [address]- 9647 Oct, [facility] [place] [facility] [address] [id number] [place] [address]- 0492 Oct, [facility] [place] [facility] [address] [id number] [place] [address]- 7153 Oct, [facility] [place] [facility] [address] [id number] [place] [address]- 9292 Oct, [facility] [place] [facility] [address] [id number] [place] [address]- 2292 Sep, [facility] [place] [facility] [address] [id number] [place] [address]- 2649 Sep, [facility] [place] [facility] [address] [id number] [place] [address]- 6868 August, [facility] [place] [facility] [address] [id number] [place] [address] 4828 August, [facility] [place] [facility] [address] [id number] [place] [address]- 3488 August, [facility] [address] [id number] [place] [address]- 4[address] August, [facility] [place] [facility] [address] [id number] [place] [address]- 5317 Jul, [facility] [place] [facility] [address] [id number] [place] [address]- 3251 Jul, [facility] [place] [facility] [address] [id number] [place] [address] 5108 Jul, [facility] [place] [facility] [address] [id number] [place] [address]- 1774 Jul, [facility] [place] [facility] [address] [id number] [place] [address]- 7515 Jul, [facility] [address] [id number] [place] [address]- 0997 Jul, [facility] [place] [facility] [address] [id number] [place] [address]- 8851 Jul, [facility] [place] [facility] [address] [id number] [place] [address]- 9844 Jul, [facility] [place] [facility] [address] [id number] [place] [address]- 1524 Jul, [facility] [place] [facility] [address] [id number] [place] [address]- 2224 23 Jun, 2011 [facility] [place] [facility] [address] [id number] [place] [address]- 4168 19 Jun, 2011 [facility] [place] [facility] [address] [id number] [place] [address]- 8682 15 Jun, 2011 [facility] [place] [facility] [address] [id number] [place] [address]- 5116 14 Jun, 2011 [facility] [place] [facility] [address] [id number] [place] [address]- 4394 12 Jun, 2011 [facility] [place] [facility] [address] [id number] [place] [address]- 7781 Jun, [facility] [place] [facility] [address] [id number] [place] [address]- 9066 Jun, [facility] [place] [facility] [address] [id number] [place] [address]- 3746 May, [facility] [place] [facility] [address] [id number] [place] [address]- 3726 May, [facility] [place] [facility] [address] [id number] [place] [address]- 6834 May, [facility] [place] [facility] [address] [id number] [place] [address]- 4206 May, [facility] [place] [facility] [address] [id number] [place] [address]- 2749 May, [facility] [place] [facility] [address] [id number] [place] [address]- 3792 Apr, [facility] [place] [facility] [address] [id number] [place] [address]- 6065 Apr, [facility] [place] [facility] [address] [id number] [place] [address]- 1932 Apr, [facility] [place] [facility] [address] [id number] [place] [address]- 8743 Apr, [facility] [place] [facility] [address] [id number] [place] [address]- 4003 Apr, [facility] [place] [facility] [address] [id number] [place] [address]- 8173 Mar, [facility] [place] [facility] [address] [id number] [place] [address]- 1416 Mar, [facility] [place] [facility] [address] [id number] [place] [address]- 3635 Mar, [facility] [place] [facility] [address] [id number] [place] [address]- 6848 Mar, [facility] [place] [facility] [address] [id number] [place] [address]- 0571 Mar, [facility] [place] [facility] [address] [id number] [place] [address]- 8715 Mar, [facility] [place] [facility] [address] [id number] [place] [address]- 1426 Mar, [facility] [place] [facility] [address] [id number] [place] [address]- 4513 Feb, [facility] [place] [facility] [address] [id number] [place] [address]- 6653 Feb, [facility] [place] [facility] [address] [id number] [place] [address]- 5746 Feb, [facility] [place] [facility] [address] [facility] [id number] [place] [address]- 9392 Feb, [facility] [place] [facility] [address] [id number] [place] [address]- 4847 Jan, [facility] [place] [facility] [address] [id number] [place] [address]- 3754 Jan, [facility] [place] [facility] [address] [facility] [id number] [place] [address]- 6430 Jan, [facility] [place] [facility] [address] [id number] [place] [address]- 7209 Jan, [facility] [place] [facility] [address] [id number] [place] [address]- 1821 Nov, [facility] [place] [facility] [address] [id number] [place] [address] Mar, [facility] [place] [facility] [address] [id number] [place] [address]- 3355 Mar, [facility] [place] [facility] [address] [facility] [id number] [place] [address]- 8611 Mar, [facility] [place] [facility] [address] [id number], [place] [address]- 2546 Mar, [facility] [place] [address] [id number], [place] [address]- 8436 Mar, [facility] [place] [address] [id number], [place] [address]- 2546 Mar, [facility] [place] [id number], [place] [address]- 6031 Feb, [facility] [place] [id number], [place] [address]- 3099 Feb, [facility] [place] [id number] [place] [address]- 1427 Jan, [facility] [place] [id number], [place] [address]- 4741 Jan, [facility] [place] [id number], [place] [address]- 1256 Jan, IMMUNIZATIONS No Known Immunizations SOCIAL HISTORY Never Assessed REASON FOR VISIT lab defer/med order PLAN OF CARE VITAL SIGNS MEDICATIONS Medication Instructions Dosage Frequency Start Date End Date Duration Status Vitamin D (Ergocalciferol) 04771 UNIT Orally once weekly 1 capsule Dec 8 weeks Active RESULTS No Results PROCEDURES No Known [...] agains driving. Medical History Bacterial meningitis 12/2016 Surgical History cholecystectomy Surgical History appendectomy Surgical History hysterectomy-fibroids Surgical History section Surgical History neuroplasty with transposition of median nerve at carpal tunnel-bilateral carpal tunnel surgery (summer of 2009) Surgical History Esophageal surgery-Dr. 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
--- OUTSIDE RECORDS SUMMARY | 2018-05-29 07:38 | XMS REPORT ---
Author Author ZHANE BOSCH [facility] Address [address] [place] [address] Care Team Providers Care Vice President Of Compliance Name Role Phone ZHANE BOSCH Unavailable PROBLEMS Type Condition ICD9-CM Code PNU64-AZ Code Onset Dates Condition Status SNOMED Code Problem Low back pain M54.5 Active 316155337 Problem Abnormal chest CT R93.8 Active 825183772 Problem Dysthymic disorder F34.1 Active 77134888 Problem Generalized anxiety disorder F41.1 Active 51792788 Problem Coronary artery disease involving rosebud coronary artery of rosebud heart, angina presence unspecified I25.10 Active 9132960270015 Problem Restless leg G25.81 Active 89873881 Problem Hypothyroid E03.9 Active 02732450 Problem Insomnia G47.00 Active 493677513 Problem Asthma J45.909 Active 942595647 Problem Chronic kidney disease, unspecified N18.9 Active 061785963 Problem Palpitations R00.2 Active 86638700 Problem Anemia in chronic kidney disease D63.1 Active 232844743087569 Problem Depressed F32.9 Active 68806560 Problem Bipolar disorder, current episode manic without psychotic features F31.10 Active 362667288 Problem Primary osteoarthritis of left knee M17.12 Active 050057307 Problem Degenerative tear of medial meniscus of left knee M23.204 Active 226502729 Problem Chronic pain syndrome G89.4 Active 293838082 Problem Restless leg syndrome G25.81 Active 94054455 Problem History of colon polyps Z86.010 Active 445955941 Problem Functional 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 Active 85979206 Problem Chronic kidney disease, stage 4 (severe) N18.4 Active 100843553 Problem Stage 3 chronic kidney disease N18.3 Active 639235082 Problem Mood disorder F39 Active 40776849 Problem Seasonal allergic rhinitis due to pollen J30.1 Active 44336979 Problem Body mass index (BMI) of 40.0-44.9 in adult Z68.41 Active 958976096 Problem Other seasonal allergic rhinitis J30.2 Active 784665560 Problem Long-term use of high-risk medication Z79.899 Active 013183587 Problem Hypokalemia E87.6 Active 77495692 Problem Asthma with acute exacerbation in adult J45.901 Active 003851757 Problem History of anemia Z86.2 Active 199561296 Problem Vitamin D deficiency E55.9 Active 07600885 Problem Essential (primary) hypertension I10 Active 02639194 Problem Fibromyalgia M79.7 Active 936684077 Problem Mixed stress and urge urinary incontinence N39.46 Active 215595871 ALLERGIES No Information ENCOUNTERS Encounter Location Date Diagnosis [facility] [address] [address] Jan, [facility] [address] [address] Jan, [facility] [address] [address]- [address] Dec, Vitamin D deficiency E55.9 [facility] [address] [address] 2549 Dec, Vitamin D deficiency E55.9 [facility] [address] [address] 2542 24 Dec, 2017 Vitamin D deficiency E55.9 [facility] [address] [address] 2546 12 Dec, 2017 [facility] [address] [address] 2547 Dec, Fibromyalgia M79.7 [facility] [address] [address]- [address] Nov, [facility] [address] [address]- 7[address] Nov, [facility] [address] [address]- [address] Nov, [facility] [address] [place] [id number] [place] [address] 73955- 3721 Nov, Fibromyalgia M79.7 ; Vision changes H53.9 ; Chest wall pain R07.89 and Chronic pain syndrome G89.4 [facility] [id number] [place] [address] 05679- 4095 Nov, [facility] [address] [place] [id number] [place] [address] 52558- 7691 Nov, Rash of hands R21 [facility] [address] [place] [id number] [place] [address] 34478- 1010 Nov, Generalized anxiety disorder F41.1 and Major depressive disorder, recurrent episode with anxious distress F33.9 [place] [address] [place] [id number] [place] [address] 32148- 6065 Nov, Fibromyalgia M79.7 [place] [address] [place] [id number] [place] [address] 27509- 5258 Nov, Complicated UTI (urinary tract infection) N39.0 [facility] [address] [place] [id number] [place] [address] 15701- 4467 Oct, [place] [address] [place] [id number] [place] [address] 63547- 7549 Oct, Generalized anxiety disorder F41.1 and Major depressive disorder, recurrent episode with anxious distress F33.9 [facility] [id number] [place] [address] 31482- 3641 Oct, [facility] [address] [place] [id number] [place] [address] 32230- 3058 Oct, Fibromyalgia M79.7 [facility] [address] [place] [id number] [place] [address] 42810- 8114 Sep, Restless leg syndrome G25.81 and Restless leg G25.81 [facility] [address] [address] Sep, [facility] [address] [place] [id number] [place] [address] 12800- 8641 Sep, Seasonal allergic rhinitis due to pollen J30.1 ; Screening for breast cancer Z12.31 ; Chest pain at rest R07.9 ; Restless leg syndrome G25.81 ; Essential (primary) hypertension I10 and Depressed F32.9 [place] [address] [address]- 0534 August, Fibromyalgia M79.7 [place] [address] [address]- 6161 August, [place] [address] 34468- 1714 August, [place] [address] [address]- [address] August, [address] R93.8 [place] [address] [address]- 1987 August, Generalized anxiety disorder F41.1 and Major depressive disorder, recurrent episode with anxious distress F33.9 [place] [address] [address]- [address] August, [address] R93.8 [place] [address] 14944- 6447 Jul, [place] [address] 38581- 8099 Jul, Chronic kidney disease, stage 4 (severe) N18.4 [place] [address] [place] [id number] [place] [address] 11221- 9876 Jul, [place] [address] 69970- 4383 Jul, Restless leg G25.81 ; Mixed stress and urge urinary incontinence N39.46 and Fibromyalgia M79.7 [place] [address] 64[address]- 6321 Jul, Chronic kidney disease, stage 4 (severe) N18.4 [facility] [address] [place] [id number] [place] [address] 99162- 1126 Jun, Orthostatic hypotension I95.1 ; Chronic kidney disease, stage 4 (severe) N18.4 ; Chest wall discomfort R07.89 and Body mass index (BMI) of 40.0-44.9 in adult Z68.41 [facility] [address] [place] [id number] [place] [address] 05309- 3659 Jun, [facility] [address] [place] [id number] [place] [address] 25013- 2132 Jun, Orthostatic hypotension I95.1 [place] [address] [place] [id number] [place] [address] 61952- 3968 Jun, [facility] [address] [place] [id number] [place] [address] 41764 -9944 Jun, Orthostatic hypotension I95.1 ; Dysuria R30.0 and Acute cystitis without hematuria N30.00 [facility] [address] [place] [id number] [place] [address] 52740- 9327 Jun, [place] [address] [place] [id number] [place] [address] 29223- 2015 Jun, Chronic kidney disease, stage 4 (severe) N18.4 [place] [address] [place] [id number] [place] [address] 40186- 1262 Jun, Fibromyalgia M79.7 [facility] [address] [place] [id number] [place] [address] 61400- 3792 Jun, [place] [address] [place] [id number] [place] [address] 53843- 4516 Jun, [facility] [address] [place] [id number] [place] [address] 45634- [address]254 May, [address] R93.8 and Stage 3 chronic kidney disease N18.3 [place] [address] [place] [address]- 4488 May, Chronic kidney disease, stage 4 (severe) N18.4 [facility] [address] [place] [id number] [place] [address] 83624- 5623 May, Chronic kidney disease, stage 4 (severe) N18.4 [facility] [address] [place] [id number] [place] [address] 07945- [address] May, [address] R93.8 [facility] [address] [place] [id number] [place] [address] 09527- 8450 May, [facility] [address] [place] [id number] [place] [address] 34976- 4888 May, [place] [address] [place] [id number] [place] [address] 63304- 0583 May, Generalized anxiety disorder F41.1 and Major depressive disorder, recurrent episode with anxious distress F33.9 [facility] [address] [place] [id number] [place] [address] 63646- 9356 May, Mood disorder F39 [place] [address] [place] [id number] [place] [address] 54241- 8503 Apr, [place] [address] [place] [id number] [place] [address] 41464- 3055 Apr, Infected skin lesion L08.9 and Muscle strain of right shoulder region, initial encounter S46.911A [facility] [address] [place] [address] 11312- 1338 Apr, Generalized anxiety disorder F41.1 and Major depressive disorder, recurrent episode with anxious distress F33.9 [facility] [address] [place] [id number] [place] [address] 70286- 7747 Apr, [place] [address] [place] [id number] [place] [address] 71073- 6461 Apr, Recent urinary tract infection Z87.440 and Hypothyroid E03.9 [facility] [address] [place] [address] 49073- 3062 Apr, Generalized anxiety disorder F41.1 and Major depressive disorder, recurrent episode with anxious distress F33.9 [place] [address] [place] [address] 32936- 6726 Apr, Recent urinary tract infection Z87.440 [place] [address] [place] [id number] [place] [address] 18060- 0300 Mar, [facility] [address] [place] [id number] [place] [address] 90123 -3019 Mar, Dysuria R30.0 ; Acute cystitis without hematuria N30.00 and BMI 40.0-44.9, adult Z68.41 [place] [address] [place] [address] 97821- 2464 Mar, [place] [address] [place] [id number] [place] [address] 52723- 1954 Mar, [place] [address] [place] [id number] [place] [address] 03988- 7793 Mar, Generalized anxiety disorder F41.1 and Major depressive disorder, recurrent episode with anxious distress F33.9 [place] [address] [address]- 7999 Feb, Conjunctivitis, bacterial H10.9 [place] [address] [place] [address] 50057- 9864 Feb, [facility] [place] [id number] [place] [address] 47239 -2067 Feb, Conjunctivitis, bacterial H10.9 [place] [address] [place] [id number] [place] [address] 05272- 2121 Feb, [facility] [address] [place] [address] 84663 -3938 Feb, Dysuria R30.0 ; Acute cystitis N30.00 and BMI 40.0-44.9, adult Z68.41 [place] [address] [place] [id number] [place] [address] 82638- 0476 Feb, [place] [address] 57651- 8729 Feb, Generalized anxiety disorder F41.1 and Major depressive disorder, recurrent episode with anxious distress F33.9 [place] [address] 76599- 8709 Feb, Mood disorder F39 and BMI 40.0-44.9, adult Z68.41 [place] [address] 78918- 2378 Jan, [place] [address] 30491- 1754 Jan, [place] [address] 11678- 1911 Jan, Hypothyroid E03.9 [place] [address] [place] [id number] [place] [address] 20533- 2006 Jan, [address] [address]- 6938 Jan, Chronic kidney disease, unspecified N18.9 ; Hypokalemia E87.6 ; Essential (primary) hypertension I10 ; Fibromyalgia M79.7 ; Coronary artery disease involving rosebud coronary artery of rosebud heart, angina presence unspecified I25.10 ; Hypothyroid E03.9 and Encounter for immunization Z23 [place] [address] [place] [id number] [place] [address] 62832- 3609 Jan, Hypothyroid E03.9 [place] [address] 47192- 7545 Jan, [place] [address] [place] [id number] [place] [address] 83650- 8836 Dec, Vitamin D deficiency E55.9 [place] [address] 28077- 8576 28 Dec, 2016 Primary osteoarthritis of left knee M17.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 [facility] [address] [place] [address] 96954 2546 19 Dec, 2016 Fibromyalgia M79.7 [facility] [address] [place] [address] 52694- 1546 18 Dec, 2016 Mood disorder F39 [facility] [address] [place] [id number] [place] [address] 61472- 5014 13 Dec, 2016 [facility] [address] [place] [address] 83793- 2808 13 Dec, 2016 Generalized anxiety disorder F41.1 and Major depressive disorder, recurrent episode with anxious distress F33.9 [place] [address] [place] [address] 10648- 7628 11 Dec, 2016 [place] [address] [place] [address] 22547- 1833 08 Dec, 2016 Streptococcal meningitis G00.2 [facility] [address] [place] [address] 18609- 0439 07 Dec, 2016 Streptococcal meningitis G00.2 [facility] [address] [place] [address] 67039- 7113 07 Dec, 2016 [facility] [address] [place] [address] 19177 2545 06 Dec, 2016 Streptococcal meningitis G00.2 [facility] [address] [place] [address] 90449- 2547 06 Dec, 2016 [facility] [address] [place] [id number] [place] [address] 14333- 9561 06 Dec, 2016 Major depressive disorder, recurrent episode with anxious distress F33.9 [facility] [address] [place] [address] 11092- 6796 Nov, Fever, unspecified fever cause R50.9 [facility] [address] [place] [id number] [place] [address] 15831- 4052 Nov, [facility] [address] [place] [id number] [place] [address] 19816- 7110 Nov, Hypothyroid E03.9 [facility] [address] [place] [id number] [place] [address] 64460- 4449 Nov, Generalized anxiety disorder F41.1 and Major depressive disorder, recurrent episode with anxious distress F33.9 [facility] [address] [place] [id number] [place] [address] 82092- 1293 Nov, [facility] [address] [id number] Oct, Dental examination Z01.20 [place] [address] [place] [id number] [place] [address] 29399- 6202 Oct, Generalized anxiety disorder F41.1 and Major depressive disorder, recurrent episode with anxious distress F33.9 [facility] [address] [place] [id number] [place] [address] 76042- 5153 Oct, Chronic kidney disease, stage 4 (severe) N18.4 [place] [address] [place] [id number] [place] [address] 24585- 4777 Oct, [facility] [address] [place] [id number] [place] [address] 15205- 9895 Oct, Fibromyalgia M79.7 [facility] [address] [place] [id number] [place] [address] 43023- 8377 Oct, [facility] [address] [place] [address] 98620- 2525 Oct, Generalized anxiety disorder F41.1 ; Major depressive disorder, recurrent episode with anxious distress F33.9 and Bipolar disorder, current episode manic without psychotic features F31.10 [facility] [address] [place] [address] 86240- 6705 Sep, [facility] [address] [place] [id number] [place] [address] 94316- 4580 Sep, [place] [address] [place] [id number] [place] [address] 06241- 5468 Sep, Vitamin D deficiency E55.9 [place] [address] [place] [id number] [place] [address] 24066- 3646 14 Sep, 2016 Vitamin D deficiency E55.9 [place] [address] [place] [id number] [place] [address] 36517- 6512 Sep, [place] [address] [place] [id number] [place] [address] 24720- 9527 Sep, Chronic kidney disease, stage 4 (severe) N18.4 ; Hypothyroid E03.9 ; Restless leg G25.81 ; Fibromyalgia M79.7 ; Essential ( primary) hypertension I10 ; Vitamin D deficiency E55.9 ; Dyspepsia R10.13 ; Anemia in chronic kidney disease D63.1 ; Chronic kidney disease, unspecified N18.9 ; Coronary artery disease involving rosebud coronary artery of rosebud heart , angina presence unspecified I25.10 ; Screening breast examination Z12.39 and Low back pain M54.5 [place] [address] [place] [id number] [place] [address] 99306- 7447 August, Generalized anxiety disorder F41.1 and Major depressive disorder, recurrent episode with anxious distress F33.9 [place] [address] [place] [id number] [place] [address] 05532- 6398 August, Generalized anxiety disorder F41.1 and Major depressive disorder, recurrent episode with anxious distress F33.9 [place] [address] [place] [id number] [place] [address] 91257- 1213 August, Fibromyalgia M79.7 [place] [address] [place] [id number] [place] [address] 36027- 4387 Jul, Generalized anxiety disorder F41.1 and Major depressive disorder, recurrent episode with anxious distress F33.9 [place] [address] [place] [id number] [place] [address] 65191- 6898 Jul, Fibromyalgia M79.7 [place] [address] [place] [address] 69160- 0957 Jul, Generalized anxiety disorder F41.1 [place] [address] [place] [id number] [place] [address] 10645- 4876 May, [place] [address] [place] [id number] [place] [address] 50106- 0357 May, Hypothyroid E03.9 [place] [address] [place] [id number] [place] [address] 76625- 9467 May, Chronic kidney disease, stage 4 (severe) N18.4 ; Hypothyroid E03.9 ; Restless leg G25.81 ; Fibromyalgia M79.7 ; Essential ( primary) hypertension I10 ; Vitamin D deficiency E55.9 ; Dyspepsia R10.13 ; Acute non-recurrent maxillary sinusitis J01.00 ; Anemia in chronic kidney disease D63.1 ; Chronic kidney disease, unspecified N18.9 and Coronary artery disease involving rosebud coronary artery of rosebud heart, angina presence unspecified I25.10 [place] [address] [place] [id number] [place] [address] 98201- 2555 May, Vitamin D deficiency, unspecified E55.9 [place] [id number] [place] [address] 00784- 7586 May, Generalized anxiety disorder F41.1 and Major depressive disorder, recurrent episode with anxious distress F33.9 [place] [id number] [place] [address] 33076- 4830 Apr, Pain in right knee M25.561 and Pain in left knee M25.562 [place] [id number] [place] [address] 74289- 0584 Apr, [place] [address] [place] [id number] [place] [address] 01179- 7859 Apr, [place] [address] [place] [id number] [place] [address] 20193- 5974 Apr, [place] [address] [place] [address] 91501- 9234 Mar, Generalized anxiety disorder F41.1 and Major depressive disorder, recurrent episode with anxious distress F33.9 [place] [address] [place] [id number] [place] [address] 57536- 0940 Mar, Generalized anxiety disorder F41.1 and Major depressive disorder, recurrent episode with anxious distress F33.9 [place] [address] [place] [id number] [place] [address] 07177- 4756 Mar, [place] [address] 24221- 1044 Mar, [place] [address] [place] [id number] [place] [address] 44236- 5048 Mar, [place] [address] [place] [id number] [place] [address] 41741- 1443 Mar, Asthma J45.909 and Fibromyalgia M79.7 [place] [address] [place] [id number] [place] [address] 59533- 7552 Mar, Chronic kidney disease, stage 4 (severe) N18.4 ; Vitamin D deficiency E55.9 and Essential (primary) hypertension I10 [place] [address] [place] [id number] [place] [address] 28787- 7090 Feb, [place] [address] [place] [id number] [place] [address] 78429- 5732 Feb, Dysuria R30.0 ; Mixed stress and urge urinary incontinence N39.46 ; Fibromyalgia M79.7 and Chronic kidney disease, stage IV (severe) N18.4 [place] [id number] [place] [address] [phone]- 1093 Feb, Chronic kidney disease, stage 4 (severe) N18.4 [place] [id number] [place] [address] 24054- 6925 Feb, Chronic kidney disease, stage 4 (severe) N18.4 [facility] [id number] [place] [address] [phone]- [phone] Feb, [facility] [id number] [place] [address] [phone]- 5071 Feb, Vitamin D deficiency, unspecified E55.9 [place] [address] 57471- 8531 Jan, [facility] [address] [phone]- [phone] Jan, [facility] [id number] [place] [address] [phone]- 2708 Dec, [place] [address] 11256- 3760 Dec, Chronic kidney disease, stage 4 (severe) N18.4 [place] [id number] [place] [address] 52081- 8624 Dec, Dysthymic disorder F34.1 and Generalized anxiety disorder F41.1 [place] [id number] [place] [address] 15637- 1598 Dec, [place] [id number] [place] [address] 40814- 1733 Dec, [place] [id number] [place] [address] 52197- 8722 Dec, Dysthymic disorder F34.1 and Generalized anxiety disorder F41.1 [place] [id number] [place] [address] 28812- 7216 Dec, Dysuria R30.0 ; Chronic kidney disease, stage 4 (severe) N18.4 ; Hypertension I10 ; Dyspepsia R10.13 ; Yeast dermatitis B37.2 ; Palpitations R00.2 ; Hypothyroid E03.9 ; Functional 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 and Other seasonal allergic rhinitis J30.2 [facility] [id number] [place] [address] [phone] Dec, [facility] [id number] [place] [address] [phone] -[phone] Nov, Dysuria R30.0 and Stress incontinence N39.3 [facility] [id number] [place] [address] 24948- [phone] Nov, [facility] [id number] [place] [address] 18513- [phone] Nov, [facility] [id number] [place] [address] 07025- 7005 Nov, Osteoarthritis of knees, bilateral M17.0 [place] [id number] [place] [address] 42217- 5571 Nov, Dysthymic disorder F34.1 and Generalized anxiety disorder F41.1 [place] [id number] [place] [address] 72756- 1607 Nov, [facility] [id number] [place] [address] 77112- 1757 Nov, [facility] [id number] [place] [address] 56977- 2738 Nov, Urgency of urination R39.15 [facility] [id number] [place] [address] 95486- 9745 Nov, [facility] [id number] [place] [address] 76421- 7458 Nov, Chronic kidney disease, stage 4 (severe) N18.4 [facility] [id number] [place] [address] 28786- 2690 Oct, Hypertension I10 ; Coronary artery disease involving rosebud coronary artery of rosebud heart, angina presence unspecified I25.10 ; Palpitations R00.2 ; Hypothyroid E03.9 ; Right foot pain M79.671 ; Functional 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 and Other seasonal allergic rhinitis J30.2 [facility] [address] [place] [address] 2542 Oct, Dysthymic disorder F34.1 and Generalized anxiety disorder F41.1 [facility] [address] [address] 6769 Sep, [facility] [address] [address] 0834 Sep, [facility] [id number] [place] [address] 64390- 4695 Sep, [facility] [id number] [place] [address] 81400- 8967 Sep, [facility] [id number] [place] [address] 61003- 4839 Sep, [facility] [id number] [place] [address] 17466- 4493 Sep, Dysthymic disorder F34.1 and Generalized anxiety disorder F41.1 [facility] [id number] [place] [address] 86351- 3939 Sep, Asthma with acute exacerbation in adult J45.901 ; Dysuria R30.0 ; Chronic kidney disease, stage 4 (severe) N18.4 and History of anemia Z86.2 [place] [address] [address] 7467 Sep, Generalized anxiety disorder F41.1 and Dysthymic disorder F34.1 [facility] [address] [address] 4263 August, Screening breast examination Z12.39 and Acute recurrent maxillary sinusitis J01.01 [facility] [id number] [place] [address] 54036- 8118 August, Osteoarthritis of knees, bilateral M17.0 [facility] [address] [address]- 4195 August, Chronic kidney disease, stage 4 (severe) N18.4 ; Acute non- recurrent maxillary sinusitis J01.00 ; Urinary problem R39.89 ; Bowel habit changes R19.4 ; Functional 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 and History of colon polyps Z86.010 [place] [id number] [place] [address] 17754- 2381 29 Jul, 2015 Dysthymic disorder F34.1 and Generalized anxiety disorder F41.1 [place] [id number] [place] [address] 80604- 8214 Jul, [place] [id number] [place] [address] 40799- 2362 18 Jul, 2015 Dysthymic disorder F34.1 ; Generalized anxiety disorder F41.1 and halfway use of drug Z79.899 [place] [id number] [place] [address] 91274- 0327 Jul, [place] [id number] [place] [address] 54434- 3674 16 Jun, 2015 [place] [id number] [place] [address] 05682- 6718 08 Jun, 2015 [place] [id number] [place] [address] 46635- 6330 May, [place] [id number] [place] [address] 42807- 7160 May, Dysthymic disorder F34.1 and Generalized anxiety disorder F41.1 [place] [id number] [place] [address] 31669- 4778 Apr, Kidney disease N28.9 [place] [id number] [place] [address] 52726- 0362 Apr, Generalized anxiety disorder F41.1 and Dysthymic disorder F34.1 [place] [id number] [place] [address] 57909- 1405 Apr, Chronic kidney disease, stage 4 (severe) N18.4 [place] [id number] [place] [address]- 5746 Apr, Generalized anxiety disorder F41.1 ; Major depression, recurrent F33.9 and Sleep disturbance G47.9 [facility] [id number] [place] [address] 84811- 7211 Mar, Generalized anxiety disorder F41.1 and Dysthymic disorder F34.1 [facility] [address] 79689- 9158 Mar, Generalized anxiety disorder F41.1 ; Dysthymic disorder F34.1 and Insomnia G47.00 [place] [id number] [place] [address] 94760- 6407 Mar, [place] [id number] [place] [address] 01931- 1948 Mar, [facility] [address] 08875- 7649 Mar, Osteoarthritis of knees, bilateral M17.0 [facility] [id number] [place] [address] 02445- 5044 Mar, Hypertension I10 ; Hypothyroid E03.9 ; Dysthymic disorder F34.1 ; Chronic kidney disease, stage 4 (severe) N18.4 and Nausea & vomiting R11.2 [facility] [id number] [place] [address] 82583- 4327 Mar, Generalized anxiety disorder F41.1 ; Dysthymic disorder F34.1 and Insomnia G47.00 [facility] [id number] [place] [address] 75371- 9435 Mar, Dehydration E86.0 ; Chronic kidney disease, stage 4 (severe ) N18.4 and Nausea & vomiting R11.2 [facility] [id number] [place] [address] 42030 -6213 08 Mar, 2015 Gastroenteritis K52.9 [facility] [id number] [place] [address] 77145- 8070 Mar, [place] [id number] [place] [address] 98784- 1288 Mar, [address] 29170- 1383 Feb, Dysthymic disorder F34.1 and Generalized anxiety disorder F41.[address] 56208- 2306 Jan, UTI (urinary tract infection) N39.0 ; Asthma J45.909 ; Coronary artery disease involving rosebud coronary artery of rosebud heart, angina presence unspecified I25.10 ; Hypertension I10 ; Hypothyroid E03.9 ; Vitamin D deficiency E55.9 ; Insomnia G47.00 ; Palpitations R00.2 ; Depressed F32.9 ; Restless leg G25.81 and Anxiety F41.[address] 33985- 0383 Jan, Dysthymic disorder F34.1 and Generalized anxiety disorder F41.[address] 49018- 7535 Jan, [address] 83628- 7621 Dec, [id number] [place] [address] 42876- 7860 Dec, Alkalosis 276.3 ; Chronic kidney disease, 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.4 ; Hyperpotassemia 276.7 ; Secondary hyperparathyroidism, renal 588.81 ; Proteinuria 791.0 ; Unspecified vitamin D deficiency 268.9 ; Anemia in chronic kidney disease 285.21 ; Other and unspecified hyperlipidemia 272.4 ; Hypertension, essential, benign 401.1 and Chronic kidney disease (CKD), stage III (moderate) 585.3 [id number] [place] [address] 64866- 1462 16 Dec, [address] 28595- 7691 Dec, Depressive disorder, not elsewhere classified 311 and Generalized anxiety disorder 300.02 [place] [id number] [place] [address] 98616- 9461 Dec, [facility] [id number] [place] [address] 21426- 2788 Dec, [place] [address] 93615- 9046 Nov, Depressive disorder, not elsewhere classified 311 and Generalized anxiety disorder 300.02 [place] [address] 09890- 3719 Nov, Arthritis of both knees 716.96 [address] [address] 57521- 8354 Nov, PAF (paroxysmal atrial fibrillation) 427.31 ; CAD (coronary artery disease) 414.00 ; Chest pain 786.50 and Chronic kidney disease (CKD) stage G4/A1, severely decreased glomerular filtration rate (GFR) between 15-29 mL/min/1.73 square meter and albuminuria creatinine ratio less than 30 mg/g 585.4 [address] [id number] [place] [address] 71523- 9818 Oct, Coronary atherosclerosis of unspecified type of vessel, rosebud or graft 414.00 ; Chronic kidney disease, 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.4 ; Hypertension 401.9 and Edema 782.3 [place] [id number] [place] [address] 64443- 6923 Oct, Depressive disorder, not elsewhere classified 311 and Generalized anxiety disorder 300.02 [place] [id number] [place] [address] 84370- 6474 Oct, Depressive disorder, not elsewhere classified 311 and Generalized anxiety disorder 300.02 [place] [id number] [place] [address] 62908- 1039 Oct, [place] [id number] [place] [address] 28303- 0940 Oct, [place] [id number] [place] [address] 37247- 6086 Sep, [place] [id number] [place] [address] 52020- 1004 Sep, Chronic kidney disease, 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.[address] 17134- 8092 Sep, [place] [id number] [place] [address] 13885- 2084 Sep, Coronary atherosclerosis of unspecified type of vessel, rosebud or graft 414.00 ; Hypertension 401.9 ; Edema 782.3 and Hypothyroidism 244.9 [address] [id number] [place] [address] 72235- 0270 Sep, Coronary atherosclerosis of unspecified type of vessel, rosebud or graft 414.00 ; Hypertension 401.9 ; Fibromyalgia 729.1 ; Edema 782.3 ; Hypothyroidism 244.9 and Anemia 285.9 [address] [id number] [place] [address] 97573- 7688 Sep, Anxiety disorder, unspecified 300.00 and Depressive disorder , not elsewhere classified [id number] [place] [address] 80906- 4511 Sep, [address] [id number] [place] [address] 88063- 2592 August, Generalized anxiety disorder 300.02 [address] [id number] [place] [address] 52028- 2582 August, Closed fracture of lateral malleolus 824.[address] 37987- 4483 Jul, [address] [id number] [place] [address] 35191- 2409 Jul, [address] 72555- 1010 Jun, [facility] [place] [facility] [address] [id number] [place] [address]- 5223 Jun, [facility] [place] [facility] [address] [facility] [id number] [place] [address]- 5930 Jun, [facility] [place] [facility] [address] [facility] [id number] [place] [address]- 1166 Jun, [facility] [place] [facility] [address] [facility] [id number] [place] [address]- 0247 Jun, [facility] [place] [facility] [address] [id number] [place] [address]- 0546 Jun, [facility] [place] [facility] [address] [facility] [id number] [place] [address]- 1717 May, 2014 [facility] [place] [facility] [address] [facility] [id number] [place] [address]- 8351 19 May, 2014 [facility] [place] [facility] [address] [facility] [id number] [place] [address]- 1138 18 May, 2014 [facility] [place] [facility] [address] [facility] [id number] [place] [address]- 1042 18 May, 2014 [facility] [place] [facility] [address] [facility] [id number] [place] [address]- 4143 16 May, 2014 [facility] [place] [facility] [address] [facility] [id number] [address]- 0721 16 May, 2014 [facility] [place] [facility] [address] [facility] [id number] [place] [address]- 2287 13 May, 2014 [facility] [place] [facility] [address] [facility] [id number] [place] [address]- 6956 13 May, 2014 [facility] [place] [facility] [address] [facility] [id number] [place] [address]- 3525 10 May, 2014 [facility] [place] [facility] [address] [facility] [id number] [place] [address]- 7649 10 May, 2014 [facility] [place] [facility] [address] [id number] [place] [address]- 6110 Apr, [facility] [place] [facility] [address] [id number] [place] [address]- 2045 Apr, [facility] [place] [facility] [address] [id number] [place] [address]- 8433 Mar, [facility] [place] [facility] [address] [id number] [place] [address]- 3237 Mar, [facility] [place] [facility] [address] [id number] [place] [address]- 8165 Mar, [facility] [place] [facility] [address] [id number] [place] [address]- 5694 Mar, [facility] [place] [facility] [address] [id number] [place] [address]- 2101 Mar, [facility] [place] [facility] [address] [id number] [place] [address]- 9677 Mar, [facility] [place] [facility] [address] [id number] [place] [address]- 5205 Mar, [facility] [place] [facility] [address] [id number] [place] [address]- 3724 Feb, [facility] [place] [facility] [address] [id number] [place] [address]- 5416 Feb, [facility] [place] [facility] [address] [id number] [place] [address]- 6942 Feb, [facility] [place] [facility] [address] [id number] [place] [address]- 5856 Jan, [facility] [place] [facility] [address] [id number] [place] [address]- 8680 Jan, [facility] [place] [facility] [address] [id number] [place] [address]- 4766 Jan, [facility] [place] [facility] [address] [id number] [place] [address]- 2056 Jan, [facility] [place] [facility] [address] [id number] [place] [address]- 7094 Jan, [facility] [place] [facility] [address] [id number] [place] 3339 Jan, [facility] [place] [facility] [address] [id number] [place] [address]- 4200 Jan, [facility] [place] [facility] [address] [id number] [place] [address]- 5576 Jan, [facility] [place] [facility] [address] [id number] [place] [address]- 2096 Jan, [facility] [place] [facility] [address] [id number] [place] [address]- 9318 Jan, [facility] [place] [facility] [address] [id number] [place] [address]- 1758 Nov, [facility] [place] [facility] [address] [id number] [place] [address]- 2001 Nov, [facility] [place] [facility] [address] [id number] [place] [address]- 9507 Nov, [facility] [place] [facility] [address] [id number] [place] [address]- 6302 Oct, [facility] [place] [facility] [address] [id number] [place] [address]- 5268 Oct, [facility] [place] [facility] [address] [id number] [place] [address]- 3270 Oct, [facility] [place] [facility] [address] [id number] [place] [address]- 5460 Oct, [facility] [place] [facility] [address] [id number] [place] [address]- 9626 Oct, [facility] [place] [facility] [address] [id number] [place] [address]- 4364 Oct, [facility] [place] [facility] [address] [id number] [place] [address]- 5150 Oct, [facility] [place] [facility] [address] [id number] [place] [address]- 0739 Oct, [facility] [place] [facility] [address] [id number] [place] [address]- 4362 Oct, [facility] [place] [facility] [address] [id number] [place] [address]- 5295 Sep, [facility] [place] [facility] [address] [id number] [place] [address]- 3733 Sep, [facility] [place] [facility] [address] [id number] [place] [address]- 7497 Sep, [facility] [place] [facility] [address] [id number] [place] [address]- 0612 Sep, [facility] [place] [facility] [address] [id number] [place] [address]- 3373 Sep, [facility] [place] [facility] [address] [id number] [place] [address]- 3637 Sep, [facility] [place] [facility] [address] [id number] [place] [address]- 4842 Sep, [facility] [place] [facility] [address] [id number] [place] [address]- 3518 Sep, [facility] [place] [facility] [address] [id number] [place] [address]- 2210 Sep, [facility] [place] [facility] [address] [id number] [place] [address]- 4223 August, [facility] [place] [facility] [address] [id number] [place] [address]- 4015 August, [facility] [place] [facility] [address] [id number] [place] [address]- 4482 August, [facility] [place] [facility] [address] [id number] [place] [address]- 4346 August, [facility] [place] [facility] [address] [id number] [place] [address]- 9360 August, [facility] [place] [facility] [address] [id number] [place] [address]- 4708 August, [facility] [place] [facility] [address] [id number] [place] [address]- 0787 Jul, [facility] [place] [facility] [address] [id number] [place] [address]- 8813 Jul, [facility] [place] [facility] [address] [id number] [place] [address]- 1445 Jul, [facility] [place] [facility] [address] [id number] [place] [address]- 6220 Jul, [facility] [place] [facility] [address] [id number] [place] [address]- 9594 Jul, [facility] [place] [facility] [address] [id number] [place] [address]- 9461 Jul, [facility] [place] [facility] [address] [id number] [place] [address]- 3272 Jun, [facility] [place] [facility] [address] [id number] [place] [address]- 6395 Jun, [facility] [place] [facility] [address] [id number] [place] [address]- 2144 May, [facility] [place] [facility] [address] [id number] [place] [address]- 4839 May, [facility] [place] [facility] [address] [id number] [place] [address]- 7082 May, [facility] [place] [facility] [address] [id number] [place] [address]- 6872 May, [facility] [place] [facility] [address] [id number] [place] [address]- 8013 Apr, [facility] [place] [facility] [address] [id number] [place] [address]- 9821 Apr, [facility] [address] [id number] [place] [address]- 5805 18 Mar, 2013 [facility] [place] [facility] [address] [id number] [place] 3554 18 Mar, 2013 [facility] [address] [id number] [place] 5753 17 Mar, 2013 [facility] [place] [facility] [address] [id number] [place] [address]- 3927 17 Mar, 2013 [facility] [place] [facility] [address] [id number] [place] 8179 Mar, [facility] [place] [facility] [address] [id number] [place] [address]- 3191 Mar, [facility] [place] [facility] [address] [facility] [id number] [place] [address]- 7131 Feb, [facility] [place] [facility] [address] [id number] [place] [address]- 2891 Feb, [facility] [place] [facility] [address] [facility] [id number] [place] [address]- 6855 14 Feb, 2013 [facility] [place] [facility] [address] [facility] [id number] [place] [address] 14 Feb, 2013 [facility] [place] [facility] [address] [id number] [place] [address] 05 Feb, 2013 [facility] [place] [facility] [address] [facility] [id number] [place] [address] 05 Feb, 2013 [facility] [place] [facility] [address] [id number] [place] [address] 24 Jan, 2013 [facility] [place] [facility] [address] [facility] [id number] [place] [address] 24 Jan, 2013 [facility] [place] [facility] [address] [id number] [place] [address] Jan, [facility] [place] [facility] [address] [id number] [place] [address] Jan, [facility] [place] [facility] [address] [id number] [place] [address] Jan, [facility] [place] [facility] [address] [id number] [place] [address] Jan, [facility] [place] [facility] [address] [id number] [place] [address] Dec, [facility] [place] [facility] [address] [id number] [place] [address] Dec, [facility] [place] [facility] [address] [id number] [place] [address] Nov, [facility] [place] [facility] [address] [id number] [place] [address] Nov, [facility] [place] [facility] [address] [id number] [place] [address] Oct, [facility] [place] [facility] [address] [id number] [place] [address] Oct, [facility] [place] [facility] [address] [id number] [place] [address] Oct, [facility] [place] [facility] [address] [id number] [place] [address] Oct, [facility] [place] [facility] [address] [id number] [place] [address] Oct, [facility] [place] [facility] [address] [id number] [place] [address] Oct, [facility] [place] [facility] [address] [id number] [place] [address] Sep, [facility] [place] [facility] [address] [id number] [place] [address] Sep, [facility] [place] [facility] [address] [id number] [place] [address] Sep, [facility] [address] [id number] [place] [address] Sep, [facility] [address] [id number] [place] [address] August, [facility] [address] [id number] [place] [address] August, [facility] [address] [id number] [place] [address] August, [facility] [address] [id number] [place] [address] August, [facility] [address] [id number] [place] [address] August, [facility] [address] [id number] [place] [address] Jul, [facility] [place] [facility] [address] [id number] [place] [address] Jul, [facility] [address] [id number] [place] [address] Jul, [facility] [place] [facility] [address] [id number] [place] [address] Jul, [facility] [address] [id number] [place] [address] Jul, [facility] [place] [facility] [address] [id number] [place] [address] Jul, [facility] [place] [facility] [address] [id number] [place] [address] Jul, [facility] [place] [facility] [address] [id number] [place] [address] Jul, [facility] [place] [facility] [address] [id number] [place] [address] Jul, [facility] [place] [facility] [address] [id number] [place] [address] Jul, [facility] [address] [id number] [place] [id number] Jun, [facility] [address] [facility] [id number] [place] [address] Jun, [facility] [address] [id number] [place] [address] Jun, [facility] [address] [id number] [place] [address] Jun, [facility] [address] [id number] [place] [address] Jun, [facility] [address] [facility] [facility] [id number] [place] [address] May, [facility] [address] [id number] [place] [address] May, [facility] [address] [facility] [facility] [id number] [place] [address] May, [facility] [address] [id number] [address] Apr, [facility] [address] [facility] [facility] [id number] [place] [address] Apr, [facility] [address] [id number] [place] [address] Apr, [facility] [address] [id number] [place] [address] Apr, [facility] [address] [id number] [place] [address] Apr, [facility] [address] [facility] [id number] [place] [address] 39[address] Apr, [facility] [address] [id number] [place] [address] Mar, [facility] [place] [facility] [address] [id number] [place] [address] 89[address] Mar, [facility] [place] [facility] [address] [id number] [place] [address]267 Mar, [facility] [place] [facility] [address] [id number] [place] [address] Mar, [facility] [place] [facility] [address] [id number] [place] [address] Feb, [facility] [place] [facility] [address] [id number] [place] [address] 97[address] Feb, [facility] [place] [facility] [address] [id number] [place] [address] Feb, [facility] [place] [facility] [address] [id number] [place] [address] Feb, [facility] [place] [facility] [address] [id number] [place] [address] Feb, [facility] [place] [facility] [address] [id number] [place] [address] Feb, [facility] [place] [facility] [address] [id number] [place] [address] 78[address] Feb, [facility] [place] [facility] [address] [facility] [id number] [place] [address] Feb, [facility] [place] [facility] [address] [id number] [place] [address] Feb, [facility] [place] [facility] [address] [id number] [place] [address] 5[address] Feb, [facility] [place] [facility] [address] [id number] [place] [address] 39[address] Feb, [facility] [place] [facility] [address] [id number] [place] [address] Feb, [facility] [place] [facility] [address] [id number] [place] [address] 97[address] Feb, [facility] [place] [facility] [address] [id number] [place] [address]- 6928 Feb, [facility] [place] [facility] [address] [id number] [place] [address] Feb, [facility] [place] [facility] [address] [facility] [id number] [place] [address]- 7808 Feb, [facility] [place] [facility] [address] [id number] [place] [address] Jan, [facility] [place] [facility] [address] [id number] [place] [address]- 1174 Jan, [facility] [place] [facility] [address] [id number] [place] [address]- 57[address] Jan, [facility] [place] [facility] [address] [facility] [id number] [place] [address] Jan, [facility] [place] [facility] [address] [id number] [place] [address]- 3687 Jan, [facility] [place] [facility] [address] [id number] [place] [address] 4[address] Jan, [facility] [place] [facility] [address] [facility] [id number] [place] [address]- 67[address] Jan, [facility] [place] [facility] [address] [id number] [place] [address] 8212 Jan, [facility] [place] [facility] [address] [facility] [id number] [place] [address] 16 Jan, 2012 [facility] [place] [facility] [address] [id number] [place] [address] 164[address] Jan, [facility] [place] [facility] [address] [facility] [id number] [place] [address] 12[address] Jan, [facility] [place] [facility] [address] [facility] [id number] [place] [address] 60[address] Jan, [facility] [place] [facility] [address] [id number] [place] [address] 2546 26 Sep, 2011 [facility] [place] [facility] [address] [id number] [place] [address] 2546 26 Sep, 2011 [facility] [place] [facility] [address] [id number] [place] [address] 2546 24 Sep, 2011 [facility] [place] [facility] [address] [id number] [place] [address] 2546 23 Sep, 2011 [facility] [place] [facility] [address] [id number] [place] [address] 2546 22 Sep, 2011 [facility] [place] [facility] [address] [id number] [place] [address] 2546 21 Sep, 2011 [facility] [place] [facility] [address] [id number] [place] [address] 2547 20 Sep, 2011 [facility] [place] [facility] [address] [id number] [place] [address] 2542 20 Sep, 2011 [facility] [place] [facility] [address] [id number] [place] [address] 2547 07 Sep, 2011 [facility] [place] [facility] [address] [id number] [place] [address] 2546 06 Sep, 2011 [facility] [place] [facility] [address] [id number] [place] [address] 2548 06 Sep, 2011 [facility] [place] [facility] [address] [id number] [place] [address] 2546 05 Sep, 2011 [facility] [place] [facility] [address] [id number] [place] [address] 2541 23 Nov, 2011 [facility] [place] [facility] [address] [id number] [place] [address] 2546 17 Nov, 2011 [facility] [place] [facility] [address] [id number] [place] [address]- 2546 13 Nov, 2011 [facility] [place] [facility] [address] [id number] [place] [address]- 3295 Nov, [facility] [place] [facility] [address] [id number] [place] [address]- 4007 Nov, [facility] [place] [facility] [address] [id number] [place] [address]- 7712 Nov, [facility] [place] [facility] [address] [id number] [place] [address]- 0050 Nov, [facility] [place] [facility] [address] [id number] [place] [address]- 9546 Nov, [facility] [place] [facility] [address] [id number] [place] [address] 3816 Oct, [facility] [place] [facility] [address] [id number] [place] [address]- 0949 Oct, [facility] [place] [facility] [address] [id number] [place] [address]- 8461 Oct, [facility] [place] [facility] [address] [id number] [place] [address]- 4751 Oct, [facility] [place] [facility] [address] [id number] [place] [address]- 2152 Oct, [facility] [place] [facility] [address] [id number] [place] [address]- 0361 Oct, [facility] [place] [facility] [address] [id number] [place] [address]- 9037 Oct, [facility] [place] [facility] [address] [id number] [place] [address]- 1665 Sep, [facility] [place] [facility] [address] [id number] [place] [address]- 6201 Sep, [facility] [place] [facility] [address] [id number] [place] [address]- 9872 August, [facility] [place] [facility] [address] [id number] [place] [address]- 3180 August, [facility] [place] [facility] [address] [id number] [place] [address]- 3039 August, [facility] [address] [id number] [place] [address]- 3183 August, [facility] [place] [facility] [address] [id number] [place] [address]- 6954 Jul, [facility] [place] [facility] [address] [id number] [place] [address]- 6460 Jul, [facility] [place] [facility] [address] [id number] [place] [address]- 7440 Jul, [facility] [place] [facility] [address] [id number] [place] [address]- 1313 Jul, [facility] [place] [facility] [address] [id number] [place] [address]- 4064 Jul, [facility] [address] [id number] [place] [address]- 3724 Jul, [facility] [place] [facility] [address] [id number] [place] [address]- 1174 Jul, [facility] [place] [facility] [address] [id number] [place] [address]- 7509 Jul, [facility] [place] [facility] [address] [id number] [place] [address]- 7713 Jul, [facility] [place] [facility] [address] [id number] [place] [address]- 7300 23 Jun, 2011 [facility] [place] [facility] [address] [id number] [place] [address]- 9805 19 Jun, 2011 [facility] [place] [facility] [address] [id number] [place] [address]- 9859 15 Jun, 2011 [facility] [place] [facility] [address] [id number] [place] [address]- 4438 14 Jun, 2011 [facility] [place] [facility] [address] [id number] [place] [address]- 8978 12 Jun, 2011 [facility] [place] [facility] [address] [id number] [place] [address]- 9413 Jun, [facility] [place] [facility] [address] [id number] [place] [address]- 4376 Jun, [facility] [place] [facility] [address] [id number] [place] [address]- 2266 May, [facility] [place] [facility] [address] [id number] [place] [address]- 2556 May, [facility] [place] [facility] [address] [id number] [place] [address]- 4401 May, [facility] [place] [facility] [address] [id number] [place] [address]- 8556 May, [facility] [place] [facility] [address] [id number] [place] [address]- 5732 May, [facility] [place] [facility] [address] [id number] [place] [address]- 2611 Apr, [facility] [place] [facility] [address] [id number] [place] [address]- 9283 Apr, [facility] [place] [facility] [address] [id number] [place] [address]- 6352 Apr, [facility] [place] [facility] [address] [id number] [place] [address]- 2424 Apr, [facility] [place] [facility] [address] [id number] [place] [address]- 4838 Apr, [facility] [place] [facility] [address] [id number] [place] [address]- 7096 Mar, [facility] [place] [facility] [address] [id number] [place] [address]- 3806 Mar, [facility] [place] [facility] [address] [id number] [place] [address]- 0292 Mar, [facility] [place] [facility] [address] [id number] [place] [address]- 5483 Mar, [facility] [place] [facility] [address] [id number] [place] [address]- 9999 Mar, [facility] [place] [facility] [address] [id number] [place] [address]- 7566 Mar, [facility] [place] [facility] [address] [id number] [place] [address]- 7596 Mar, [facility] [place] [facility] [address] [id number] [place] [address]- 0179 Feb, [facility] [place] [facility] [address] [id number] [place] [address]- 2913 Feb, [facility] [place] [facility] [address] [id number] [place] [address]- 3284 Feb, [facility] [place] [facility] [address] [facility] [id number] [place] [address]- 9675 Feb, [facility] [place] [facility] [address] [id number] [place] [address]- 5743 Jan, [facility] [place] [facility] [address] [id number] [place] [address]- 5928 Jan, [facility] [place] [facility] [address] [facility] [id number] [place] [address]- 1722 Jan, [facility] [place] [facility] [address] [id number] [place] [address]- 3797 Jan, [facility] [place] [facility] [address] [id number] [place] [address]- 3968 Nov, [facility] [place] [facility] [address] [id number] [place] [address] Mar, [facility] [place] [facility] [address] [id number] [place] [address]- 7357 Mar, [facility] [place] [facility] [address] [facility] [id number] [place] [address]- 4846 Mar, [facility] [place] [facility] [address] [id number] [address]- 2546 Mar, [facility] [address] [id number] [address]- 6716 Mar, [facility] [address] [id number] [address]- 2546 Mar, [facility] [id number] [address]- 2874 Feb, [facility] [address] [id number] [address]- 1119 Feb, [facility] [id number] [place] [address]- 2481 Jan, [facility] [id number] [address]- 6725 Jan, [facility] [id number] [address]- 8799 Jan, IMMUNIZATIONS No Known Immunizations SOCIAL HISTORY Never Assessed REASON FOR VISIT Lab (walk-in) PLAN OF CARE VITAL SIGNS MEDICATIONS Unknown Medications RESULTS No Results PROCEDURES Procedure Date Ordered Result Body Site LAB NOT BILLED BY [facility] Jan 10, 2018 MURIEL RHODES* Jan 10, 2018 INSTRUCTIONS MEDICATIONS ADMINISTERED No Known Medications [...] 2020 & 2007 Surgical History Bladder surgery [facility] 03/2016 Surgical History Neurotransmitter placed 10/2017 Hospitalization History Surgeries Only Hospitalization History bacterial meningitis December 2016 Hospitalization History [facility] psych for SI 1988 Hospitalization History [facility]-Altered mental status 05/2017
--- OUTSIDE RECORDS SUMMARY | 2018-05-29 07:39 | XMS REPORT ---
Author Author ZHANE BOSCH [facility] Address [address] [place] [address] Care Team Providers Care Paperhanger Contractor Name Role Phone ZHANE BOSCH Unavailable PROBLEMS Type Condition ICD9-CM Code IFY86-ZR Code Onset Dates Condition Status SNOMED Code Problem Low back pain M54.5 Active 465329694 Problem Abnormal chest CT R93.8 Active 472494895 Problem Dysthymic disorder F34.1 Active 03947083 Problem Generalized anxiety disorder F41.1 Active 87349244 Problem Coronary artery disease involving paimiut coronary artery of paimiut heart, angina presence unspecified I25.10 Active 7104481679934 Problem Restless leg G25.81 Active 27374657 Problem Hypothyroid E03.9 Active 05371168 Problem Insomnia G47.00 Active 933775532 Problem Asthma J45.909 Active 361591720 Problem Chronic kidney disease, unspecified N18.9 Active 726133506 Problem Palpitations R00.2 Active 05567098 Problem Anemia in chronic kidney disease D63.1 Active 113165821266990 Problem Depressed F32.9 Active 22311205 Problem Bipolar disorder, current episode manic without psychotic features F31.10 Active 537282420 Problem Primary osteoarthritis of left knee M17.12 Active 033963407 Problem Degenerative tear of medial meniscus of left knee M23.204 Active 431283468 Problem Chronic pain syndrome G89.4 Active 926071959 Problem Restless leg syndrome G25.81 Active 84978231 Problem History of colon polyps Z86.010 Active 876457900 Problem Functional 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 Active 88909411 Problem Chronic kidney disease, stage 4 (severe) N18.4 Active 899443694 Problem Stage 3 chronic kidney disease N18.3 Active 151709939 Problem Mood disorder F39 Active 42930548 Problem Seasonal allergic rhinitis due to pollen J30.1 Active 50514745 Problem Body mass index (BMI) of 40.0-44.9 in adult Z68.41 Active 153146251 Problem Other seasonal allergic rhinitis J30.2 Active 486310663 Problem Long-term use of high-risk medication Z79.899 Active 620175923 Problem Hypokalemia E87.6 Active 70550117 Problem Asthma with acute exacerbation in adult J45.901 Active 406210340 Problem History of anemia Z86.2 Active 309110778 Problem Vitamin D deficiency E55.9 Active 09323721 Problem Essential (primary) hypertension I10 Active 42868351 Problem Fibromyalgia M79.7 Active 006522926 Problem Mixed stress and urge urinary incontinence N39.46 Active 641828767 ALLERGIES No Information ENCOUNTERS Encounter Location Date Diagnosis [facility] [address] [address] Jan, [facility] [address] [address]- [address] Jan, [facility] [address] 17252- 4099 Dec, Vitamin D deficiency E55.9 [facility] [address] [address] 2544 Dec, Vitamin D deficiency E55.9 [facility] [address] [address] 2542 24 Dec, 2017 Vitamin D deficiency E55.9 [facility] [address] [address] 2546 12 Dec, 2017 [facility] [address] [address] 2542 Dec, Fibromyalgia M79.7 [facility] [address] 60016- 9134 Nov, [facility] [address] 75874- 4268 Nov, [facility] [address] [address]11- 3434 Nov, [facility] [address] [place] [id number] [place] [address] 13404- 6770 Nov, Fibromyalgia M79.7 ; Vision changes H53.9 ; Chest wall pain R07.89 and Chronic pain syndrome G89.4 [facility] [address] [place] [address] 38080- 9656 Nov, [facility] [address] [place] [id number] [place] [address] 70753- 4782 Nov, Rash of hands R21 [facility] [address] [place] [id number] [place] [address] 34275- 6192 Nov, Generalized anxiety disorder F41.1 and Major depressive disorder, recurrent episode with anxious distress F33.9 [place] [address] [place] [id number] [place] [address] 67092- 3731 Nov, Fibromyalgia M79.7 [place] [address] [place] [id number] [place] [address] 05360- 0905 Nov, Complicated UTI (urinary tract infection) N39.0 [facility] [address] [id number] [place] [address] 72927- 2806 Oct, [place] [address] [place] [id number] [place] [address] 35477- 4436 Oct, Generalized anxiety disorder F41.1 and Major depressive disorder, recurrent episode with anxious distress F33.9 [facility] [address] [place] [address] 89793- 5967 Oct, [facility] [address] [place] [id number] [place] [address] 06772- 2970 Oct, Fibromyalgia M79.7 [facility] [id number] [place] [address] 19531- 5710 Sep, Restless leg syndrome G25.81 and Restless leg G25.81 [facility] [address] [address] 8[address] Sep, [facility] [id number] [place] [address] 17953- 7842 Sep, Seasonal allergic rhinitis due to pollen J30.1 ; Screening for breast cancer Z12.31 ; Chest pain at rest R07.9 ; Restless leg syndrome G25.81 ; Essential (primary) hypertension I10 and Depressed F32.9 [place] [address] 54464- 2828 August, Fibromyalgia M79.7 [place] [address] 63062- 4773 August, [place] [address] 46798- 4114 August, [place] [address] 65819- 8220 August, Abnormal chest CT R93.8 [place] [address] 66328- 0496 August, Generalized anxiety disorder F41.1 and Major depressive disorder, recurrent episode with anxious distress F33.9 [place] [address] 26466- 9502 August, Abnormal chest CT R93.8 [place] [address] 88443- 9786 Jul, [place] [address] 91815- 3827 Jul, Chronic kidney disease, stage 4 (severe) N18.4 [place] [address] [place] [id number] [place] [address] 99289- 1463 Jul, [place] [address] 03128- 9588 Jul, Restless leg G25.81 ; Mixed stress and urge urinary incontinence N39.46 and Fibromyalgia M79.7 [place] [address] 57342- 1177 Jul, Chronic kidney disease, stage 4 (severe) N18.4 [facility] [id number] [place] [address] 58692- 0167 Jun, Orthostatic hypotension I95.1 ; Chronic kidney disease, stage 4 (severe) N18.4 ; Chest wall discomfort R07.89 and Body mass index (BMI) of 40.0-44.9 in adult Z68.41 [facility] [address] [place] [id number] [place] [address] 71778- 7104 Jun, [facility] [address] [place] [id number] [place] [address] 38092- 8197 Jun, Orthostatic hypotension I95.1 [place] [address] [place] [id number] [place] [address] 50257- 9167 Jun, [facility] [id number] [place] [address] 31249 -6308 Jun, Orthostatic hypotension I95.1 ; Dysuria R30.0 and Acute cystitis without hematuria N30.00 [facility] [address] [place] [id number] [place] [address] 21173- 8794 Jun, [place] [address] [place] [id number] [place] [address] 71287- 3869 Jun, Chronic kidney disease, stage 4 (severe) N18.4 [place] [address] [place] [id number] [place] [address] 88018- 4429 Jun, Fibromyalgia M79.7 [facility] [address] [id number] [place] [address] 00727- 0107 Jun, [place] [address] [id number] [place] [address] 01515- 6819 Jun, [facility] [address] [id number] [place] [address] 05337- [address] May, [address] R93.8 and Stage 3 chronic kidney disease N18.3 [place] [address] [place] [address]- 0611 May, Chronic kidney disease, stage 4 (severe) N18.4 [facility] [id number] [place] [address] 46655- 8940 May, Chronic kidney disease, stage 4 (severe) N18.4 [facility] [id number] [place] [address] 51184- [address] May, [address] R93.8 [facility] [address] [id number] [place] [address] 58184- 0541 May, [facility] [address] [id number] [place] [address] 55087- 3325 May, [place] [address] [id number] [place] [address] 43117- 6100 May, Generalized anxiety disorder F41.1 and Major depressive disorder, recurrent episode with anxious distress F33.9 [facility] [address] [id number] [place] [address] 83227- 8189 May, Mood disorder F39 [place] [address] [id number] [place] [address] 35200- 7824 Apr, [place] [address] [id number] [place] [address] 08755- 0679 Apr, Infected skin lesion L08.9 and Muscle strain of right shoulder region, initial encounter S46.911A [facility] [address] [place] [address] 90613- 2231 Apr, Generalized anxiety disorder F41.1 and Major depressive disorder, recurrent episode with anxious distress F33.9 [facility] [address] [place] [id number] [place] [address] 12373- 1202 Apr, [place] [address] [id number] [place] [address] 98210- 1498 Apr, Recent urinary tract infection Z87.440 and Hypothyroid E03.9 [facility] [address] [place] [address] 80192- 9938 Apr, Generalized anxiety disorder F41.1 and Major depressive disorder, recurrent episode with anxious distress F33.9 [place] [address] [place] [address] 77886- 4153 Apr, Recent urinary tract infection Z87.440 [place] [address] [place] [id number] [place] [address] 47270- 9504 Mar, [facility] [place] [address] [place] [id number] [place] [address] 07469 -9452 Mar, Dysuria R30.0 ; Acute cystitis without hematuria N30.00 and BMI 40.0-44.9, adult Z68.41 [place] [address] [place] [address] 43155- 5391 Mar, [place] [address] [id number] [place] [address] 13751- 0736 Mar, [place] [address] [id number] [place] [address] 59852- 9001 Mar, Generalized anxiety disorder F41.1 and Major depressive disorder, recurrent episode with anxious distress F33.9 [place] [address] [address]- 5476 Feb, Conjunctivitis, bacterial H10.9 [place] [address] [place] [address] 26506- 3093 Feb, [facility] [place] [id number] [place] [address] 74650 -8182 Feb, Conjunctivitis, bacterial H10.9 [place] [address] [place] [id number] [place] [address] 84506- 7546 Feb, [facility] [place] [address] [place] [address] 73361 -2539 Feb, Dysuria R30.0 ; Acute cystitis N30.00 and BMI 40.0-44.9, adult Z68.41 [place] [address] [place] [id number] [place] [address] 87646- 2015 Feb, [place] [address] 95104- 4681 Feb, Generalized anxiety disorder F41.1 and Major depressive disorder, recurrent episode with anxious distress F33.9 [place] [address] 82433- 4109 Feb, Mood disorder F39 and BMI 40.0-44.9, adult Z68.41 [place] [address] 58055- 3600 Jan, [place] [address] 88659- 1989 Jan, [place] [address] 93715- 7969 Jan, Hypothyroid E03.9 [place] [address] [place] [id number] [place] [address] 27862- 3716 Jan, [address] 76765- 4727 Jan, Chronic kidney disease, unspecified N18.9 ; Hypokalemia E87.6 ; Essential (primary) hypertension I10 ; Fibromyalgia M79.7 ; Coronary artery disease involving paimiut coronary artery of paimiut heart, angina presence unspecified I25.10 ; Hypothyroid E03.9 and Encounter for immunization Z23 [place] [address] [place] [id number] [place] [address] 80194- 3585 Jan, Hypothyroid E03.9 [place] [address] 00951- 7637 Jan, [place] [address] [place] [id number] [place] [address] 50697- 9324 Dec, Vitamin D deficiency E55.9 [place] [address] 52207- 5585 28 Dec, 2016 Primary osteoarthritis of left knee M17.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 [facility] [address] [place] [address] 49413 2546 19 Dec, 2016 Fibromyalgia M79.7 [facility] [address] [place] [address] 96168- 0396 18 Dec, 2016 Mood disorder F39 [facility] [address] [place] [id number] [place] [address] 78820- 5227 13 Dec, 2016 [facility] [address] [place] [address] 62423- 1516 13 Dec, 2016 Generalized anxiety disorder F41.1 and Major depressive disorder, recurrent episode with anxious distress F33.9 [place] [address] [place] [address] 33134- 5857 11 Dec, 2016 [place] [address] [place] [address] 38055- 9594 08 Dec, 2016 Streptococcal meningitis G00.2 [facility] [address] [place] [address] 31675- 7888 07 Dec, 2016 Streptococcal meningitis G00.2 [facility] [address] [place] [address] 31731- 9957 07 Dec, 2016 [facility] [address] [place] [address] 64895 2547 06 Dec, 2016 Streptococcal meningitis G00.2 [facility] [address] [place] [address] 29475- 2545 06 Dec, 2016 [facility] [address] [place] [id number] [place] [address] 17559- 6974 06 Dec, 2016 Major depressive disorder, recurrent episode with anxious distress F33.9 [facility] [address] [place] [address] 14753- 9348 Nov, Fever, unspecified fever cause R50.9 [facility] [address] [place] [id number] [place] [address] 65782- 6496 Nov, [facility] [address] [place] [id number] [place] [address] 21672- 9380 Nov, Hypothyroid E03.9 [facility] [address] [place] [id number] [place] [address] 12575- 4932 Nov, Generalized anxiety disorder F41.1 and Major depressive disorder, recurrent episode with anxious distress F33.9 [facility] [address] [place] [id number] [place] [address] 96469- 3809 Nov, [facility] [address] [id number] Oct, Dental examination Z01.20 [place] [address] [place] [id number] [place] [address] 48803- 5642 Oct, Generalized anxiety disorder F41.1 and Major depressive disorder, recurrent episode with anxious distress F33.9 [facility] [address] [id number] [place] [address] 46002- 5165 Oct, Chronic kidney disease, stage 4 (severe) N18.4 [place] [address] [place] [id number] [place] [address] 07803- 8353 Oct, [facility] [address] [place] [id number] [place] [address] 08029- 5391 Oct, Fibromyalgia M79.7 [facility] [address] [place] [id number] [place] [address] 42192- 2854 Oct, [facility] [address] [place] [address] 87248- 5700 Oct, Generalized anxiety disorder F41.1 ; Major depressive disorder, recurrent episode with anxious distress F33.9 and Bipolar disorder, current episode manic without psychotic features F31.10 [facility] [address] [place] [address] 48908- 1875 Sep, [facility] [address] [place] [id number] [place] [address] 48732- 2464 Sep, [place] [address] [place] [id number] [place] [address] 82690- 8848 Sep, Vitamin D deficiency E55.9 [place] [address] [place] [id number] [place] [address] 55733- 7627 14 Sep, 2016 Vitamin D deficiency E55.9 [place] [address] [place] [id number] [place] [address] 72854- 9699 Sep, [place] [address] [place] [id number] [place] [address] 76761- 7659 Sep, Chronic kidney disease, stage 4 (severe) N18.4 ; Hypothyroid E03.9 ; Restless leg G25.81 ; Fibromyalgia M79.7 ; Essential ( primary) hypertension I10 ; Vitamin D deficiency E55.9 ; Dyspepsia R10.13 ; Anemia in chronic kidney disease D63.1 ; Chronic kidney disease, unspecified N18.9 ; Coronary artery disease involving paimiut coronary artery of paimiut heart , angina presence unspecified I25.10 ; Screening breast examination Z12.39 and Low back pain M54.5 [place] [address] [place] [id number] [place] [address] 66597- 5679 August, Generalized anxiety disorder F41.1 and Major depressive disorder, recurrent episode with anxious distress F33.9 [place] [address] [place] [id number] [place] [address] 90537- 2190 August, Generalized anxiety disorder F41.1 and Major depressive disorder, recurrent episode with anxious distress F33.9 [place] [address] [place] [id number] [place] [address] 04796- 9311 August, Fibromyalgia M79.7 [place] [address] [place] [id number] [place] [address] 74487- 7602 Jul, Generalized anxiety disorder F41.1 and Major depressive disorder, recurrent episode with anxious distress F33.9 [place] [address] [place] [id number] [place] [address] 05522- 6454 Jul, Fibromyalgia M79.7 [place] [address] [place] [address] 90966- 9947 Jul, Generalized anxiety disorder F41.1 [place] [address] [place] [id number] [place] [address] 58464- 8586 May, [place] [address] [place] [id number] [place] [address] 05173- 8008 May, Hypothyroid E03.9 [place] [address] [place] [id number] [place] [address] 92122- 4493 May, Chronic kidney disease, stage 4 (severe) N18.4 ; Hypothyroid E03.9 ; Restless leg G25.81 ; Fibromyalgia M79.7 ; Essential ( primary) hypertension I10 ; Vitamin D deficiency E55.9 ; Dyspepsia R10.13 ; Acute non-recurrent maxillary sinusitis J01.00 ; Anemia in chronic kidney disease D63.1 ; Chronic kidney disease, unspecified N18.9 and Coronary artery disease involving paimiut coronary artery of paimiut heart, angina presence unspecified I25.10 [place] [address] [place] [id number] [place] [address] 11439- 3806 May, Vitamin D deficiency, unspecified E55.9 [place] [id number] [place] [address] 94055- 9162 May, Generalized anxiety disorder F41.1 and Major depressive disorder, recurrent episode with anxious distress F33.9 [place] [id number] [place] [address] 81558- 1320 Apr, Pain in right knee M25.561 and Pain in left knee M25.562 [place] [id number] [place] [address] 35932- 5257 Apr, [place] [address] [place] [id number] [place] [address] 18412- 9288 Apr, [place] [address] [place] [id number] [place] [address] 17439- 5564 Apr, [place] [address] [place] [address] 35747- 8801 Mar, Generalized anxiety disorder F41.1 and Major depressive disorder, recurrent episode with anxious distress F33.9 [place] [address] [place] [id number] [place] [address] 17363- 8384 Mar, Generalized anxiety disorder F41.1 and Major depressive disorder, recurrent episode with anxious distress F33.9 [place] [address] [place] [id number] [place] [address] 03978- 1716 Mar, [place] [address] 00522- 9447 Mar, [place] [address] [place] [id number] [place] [address] 58067- 5361 Mar, [place] [address] [place] [id number] [place] [address] 45465- 8763 Mar, Asthma J45.909 and Fibromyalgia M79.7 [place] [address] [place] [id number] [place] [address] 08136- 7334 Mar, Chronic kidney disease, stage 4 (severe) N18.4 ; Vitamin D deficiency E55.9 and Essential (primary) hypertension I10 [place] [address] [place] [id number] [place] [address] 66430- 9805 Feb, [place] [address] [place] [id number] [place] [address] 30144- 1133 Feb, Dysuria R30.0 ; Mixed stress and urge urinary incontinence N39.46 ; Fibromyalgia M79.7 and Chronic kidney disease, stage IV (severe) N18.4 [place] [address] [place] [id number] [place] [address] 75134- 3110 Feb, Chronic kidney disease, stage 4 (severe) N18.4 [place] [address] [place] [id number] [place] [address] 63371- 5654 Feb, Chronic kidney disease, stage 4 (severe) N18.4 [facility] [address] [place] [id number] [place] [address] 51478- 8086 Feb, [facility] [address] [place] [id number] [place] [address] 94848- 8963 Feb, Vitamin D deficiency, unspecified E55.9 [place] [address] 62772- 1183 Jan, [facility] [address] 42764- 7544 Jan, [facility] [address] [place] [id number] [place] [address] 04856- 5599 Dec, [place] [address] 69897- 4174 Dec, Chronic kidney disease, stage 4 (severe) N18.4 [place] [address] [place] [id number] [place] [address] 80275- 2651 Dec, Dysthymic disorder F34.1 and Generalized anxiety disorder F41.1 [place] [address] [place] [id number] [place] [address] 49009- 1744 Dec, [place] [address] [place] [id number] [place] [address] 18722- 9651 Dec, [place] [address] [place] [id number] [place] [address] 21245- 9052 Dec, Dysthymic disorder F34.1 and Generalized anxiety disorder F41.1 [place] [address] [place] [id number] [place] [address] 35618- 4579 Dec, Dysuria R30.0 ; Chronic kidney disease, stage 4 (severe) N18.4 ; Hypertension I10 ; Dyspepsia R10.13 ; Yeast dermatitis B37.2 ; Palpitations R00.2 ; Hypothyroid E03.9 ; Functional 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 and Other seasonal allergic rhinitis J30.2 [facility] [id number] [place] [phone] Dec, [facility] [id number] [place] [phone] Nov, Dysuria R30.0 and Stress incontinence N39.3 [facility] [id number] [place] [phone] Nov, [facility] [id number] [place] [phone] Nov, [facility] [id number] [place] [phone] Nov, Osteoarthritis of knees, bilateral M17.0 [address] [place] [id number] [place] [address] 89068- 7720 Nov, Dysthymic disorder F34.1 and Generalized anxiety disorder F41.1 [facility] [id number] [place] [address] 31354- 6812 Nov, [facility] [id number] [place] [address] 41456- 1268 Nov, [facility] [id number] [place] [address] 90449- 0447 Nov, Urgency of urination R39.15 [facility] [id number] [place] [address] 40322- 1845 Nov, [facility] [id number] [place] [address] 17442- 7699 Nov, Chronic kidney disease, stage 4 (severe) N18.4 [facility] [id number] [place] [address] 46078- 5730 Oct, Hypertension I10 ; Coronary artery disease involving paimiut coronary artery of paimiut heart, angina presence unspecified I25.10 ; Palpitations R00.2 ; Hypothyroid E03.9 ; Right foot pain M79.671 ; Functional 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 and Other seasonal allergic rhinitis J30.2 [facility] [address] [place] [address]- 9235 Oct, Dysthymic disorder F34.1 and Generalized anxiety disorder F41.1 [facility] [address] [address] 2945 Sep, [facility] [address] [address] 5093 Sep, [facility] [id number] [place] [address] 64860- 4860 Sep, [facility] [id number] [place] [address] 91283- 5427 Sep, [facility] [id number] [place] [address] 78537- 0391 Sep, [facility] [id number] [place] [address] 80469- 2809 Sep, Dysthymic disorder F34.1 and Generalized anxiety disorder F41.1 [facility] [id number] [place] [address] 12483- 9162 Sep, Asthma with acute exacerbation in adult J45.901 ; Dysuria R30.0 ; Chronic kidney disease, stage 4 (severe) N18.4 and History of anemia Z86.2 [facility] [address] [address] 4711 Sep, Generalized anxiety disorder F41.1 and Dysthymic disorder F34.1 [facility] [address], [place] [address] 2719 August, Screening breast examination Z12.39 and Acute recurrent maxillary sinusitis J01.01 [facility] [id number] [place] [address] 90190- 9613 August, Osteoarthritis of knees, bilateral M17.0 [facility] [address] [address]- 0991 August, Chronic kidney disease, stage 4 (severe) N18.4 ; Acute non- recurrent maxillary sinusitis J01.00 ; Urinary problem R39.89 ; Bowel habit changes R19.4 ; Functional 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 and History of colon polyps Z86.010 [facility] [id number] [place] [address] 10801- 0690 29 Jul, 2015 Dysthymic disorder F34.1 and Generalized anxiety disorder F41.1 [facility] [id number] [place] [address] 55099- 2596 Jul, [facility] [id number] [place] [address] 83383- 4591 18 Jul, 2015 Dysthymic disorder F34.1 ; Generalized anxiety disorder F41.1 and nursing home use of drug Z79.899 [facility] [id number] [place] [address] 46031- 5406 Jul, [facility] [id number] [place] [address] 40493- 2864 16 Jun, 2015 [facility] [id number] [place] [address] 21700- 4919 08 Jun, 2015 [facility] [id number] [place] [address] 53450- 1315 May, [facility] [id number] [place] [address] 61544- 7708 May, Dysthymic disorder F34.1 and Generalized anxiety disorder F41.1 [facility] [id number] [place] [address] 54704- 1725 Apr, Kidney disease N28.9 [facility] [id number] [place] [address] 90596- 4643 Apr, Generalized anxiety disorder F41.1 and Dysthymic disorder F34.1 [facility] [id number] [place] [address] 23155- 6803 Apr, Chronic kidney disease, stage 4 (severe) N18.4 [facility] [id number] [place] [address]- 8477 Apr, Generalized anxiety disorder F41.1 ; Major depression, recurrent F33.9 and Sleep disturbance G47.9 [facility] [id number] [place] [address] 91761- 5848 Mar, Generalized anxiety disorder F41.1 and Dysthymic disorder F34.1 [facility] [address] 50815- 5858 Mar, Generalized anxiety disorder F41.1 ; Dysthymic disorder F34.1 and Insomnia G47.00 [facility] [id number] [place] [address] 58860- 5969 Mar, [facility] [id number] [place] [address] 19169- 9859 Mar, [facility] [address] 90347- 0443 Mar, Osteoarthritis of knees, bilateral M17.0 [facility] [id number] [place] [address] 29095- 4566 Mar, Hypertension I10 ; Hypothyroid E03.9 ; Dysthymic disorder F34.1 ; Chronic kidney disease, stage 4 (severe) N18.4 and Nausea & vomiting R11.2 [facility] [id number] [place] [address] 88953- 8597 Mar, Generalized anxiety disorder F41.1 ; Dysthymic disorder F34.1 and Insomnia G47.00 [facility] [id number] [place] [address] 63848- 3800 Mar, Dehydration E86.0 ; Chronic kidney disease, stage 4 (severe ) N18.4 and Nausea & vomiting R11.2 [facility] [id number] [place] [address] 51821 -5860 08 Mar, 2015 Gastroenteritis K52.9 [facility] [id number] [place] [address] 97126- 9595 Mar, [place] [id number] [place] [address] 84006- 6174 Mar, [address] 41602- 8136 Feb, Dysthymic disorder F34.1 and Generalized anxiety disorder F41.[address] 60134- 8514 Jan, UTI (urinary tract infection) N39.0 ; Asthma J45.909 ; Coronary artery disease involving paimiut coronary artery of paimiut heart, angina presence unspecified I25.10 ; Hypertension I10 ; Hypothyroid E03.9 ; Vitamin D deficiency E55.9 ; Insomnia G47.00 ; Palpitations R00.2 ; Depressed F32.9 ; Restless leg G25.81 and Anxiety F41.[address] 53055- 5492 Jan, Dysthymic disorder F34.1 and Generalized anxiety disorder F41.[address] 36736- 5762 Jan, [address] 28868- 2550 Dec, [place] [place] [id number] [place] [address] 87213- 9566 Dec, Alkalosis 276.3 ; Chronic kidney disease, 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.4 ; Hyperpotassemia 276.7 ; Secondary hyperparathyroidism, renal 588.81 ; Proteinuria 791.0 ; Unspecified vitamin D deficiency 268.9 ; Anemia in chronic kidney disease 285.21 ; Other and unspecified hyperlipidemia 272.4 ; Hypertension, essential, benign 401.1 and Chronic kidney disease (CKD), stage III (moderate) 585.3 [place] [id number] [place] [address] 26808- 0857 16 Dec, [address] 35156- 2057 Dec, Depressive disorder, not elsewhere classified 311 and Generalized anxiety disorder 300.02 [facility] [id number] [place] [address] 23443- 1248 Dec, [facility] [id number] [place] [address] 71970- 1818 Dec, [facility] [address] 30936- 8386 Nov, Depressive disorder, not elsewhere classified 311 and Generalized anxiety disorder 300.02 [facility] [address] 14683- 5264 Nov, Arthritis of both knees 716.96 [facility] [address] 93472- 1413 Nov, PAF (paroxysmal atrial fibrillation) 427.31 ; CAD (coronary artery disease) 414.00 ; Chest pain 786.50 and Chronic kidney disease (CKD) stage G4/A1, severely decreased glomerular filtration rate (GFR) between 15-29 mL/min/1.73 square meter and albuminuria creatinine ratio less than 30 mg/g 585.4 [place] [id number] [place] [address] 98088- 5758 Oct, Coronary atherosclerosis of unspecified type of vessel, paimiut or graft 414.00 ; Chronic kidney disease, 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.4 ; Hypertension 401.9 and Edema 782.3 [place] [id number] [place] [address] 93683- 1124 Oct, Depressive disorder, not elsewhere classified 311 and Generalized anxiety disorder 300.02 [facility] [id number] [place] [address] 48376- 2430 Oct, Depressive disorder, not elsewhere classified 311 and Generalized anxiety disorder 300.02 [facility] [id number] [place] [address] 17213- 5192 Oct, [facility] [id number] [place] [address] 84700- 4900 Oct, [facility] [id number] [place] [address] 50666- 1652 Sep, [facility] [id number] [place] [address] 03519- 6141 Sep, Chronic kidney disease, 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.[address] 42792- 1004 Sep, [facility] [id number] [place] [address] 84873- 3892 Sep, Coronary atherosclerosis of unspecified type of vessel, paimiut or graft 414.00 ; Hypertension 401.9 ; Edema 782.3 and Hypothyroidism 244.9 [place] [id number] [place] [address] 34004- 2367 Sep, Coronary atherosclerosis of unspecified type of vessel, paimiut or graft 414.00 ; Hypertension 401.9 ; Fibromyalgia 729.1 ; Edema 782.3 ; Hypothyroidism 244.9 and Anemia 285.9 [place] [id number] [place] [address] 05849- 2739 Sep, Anxiety disorder, unspecified 300.00 and Depressive disorder , not elsewhere classified 311 [place] [id number] [place] [address] 62778- 5578 Sep, [place] [id number] [place] [address] 88970- 1239 August, Generalized anxiety disorder 300.02 [place] [id number] [place] [address] 13954- 8398 August, Closed fracture of lateral malleolus 824.[address] 32120- 1598 Jul, [place] [id number] [place] [address] 40232- 5135 Jul, [address] 12640- 5180 Jun, [facility] [place] [facility] [address] [id number] [place] [address]- 6386 Jun, [facility] [place] [facility] [address] [facility] [id number] [place] [address]- 9475 Jun, [facility] [place] [facility] [address] [facility] [id number] [place] [address]- 8548 Jun, [facility] [place] [facility] [address] [facility] [id number] [place] [address]- 3929 Jun, [facility] [place] [facility] [address] [id number] [place] [address]- 5817 Jun, [facility] [place] [facility] [address] [facility] [id number] [place] [address]- 3736 May, 2014 [facility] [place] [facility] [address] [facility] [id number] [place] [address]- 3060 19 May, 2014 [facility] [place] [facility] [address] [facility] [id number] [place] [address]- 9558 18 May, 2014 [facility] [place] [facility] [address] [facility] [id number] [place] [address]- 6566 18 May, 2014 [facility] [place] [facility] [address] [facility] [id number] [place] [address]- 4189 16 May, 2014 [facility] [place] [facility] [address] [facility] [id number], [place] [address]- 8700 16 May, 2014 [facility] [place] [facility] [address] [facility] [id number], [place] [address]- 6702 13 May, 2014 [facility] [place] [facility] [address] [facility] [id number] [place] [address]- 7371 13 May, 2014 [facility] [place] [facility] [address] [facility] [id number], [place] [address]- 0566 10 May, 2014 [facility] [place] [facility] [address] [facility] [id number], [place] [address]- 8725 10 May, 2014 [facility] [place] [facility] [address] [id number] [place] [address]- 3847 Apr, [facility] [place] [facility] [address] [id number] [place] [address]- 6508 Apr, [facility] [place] [facility] [address] [id number] [place] [address]- 3402 Mar, [facility] [place] [facility] [address] [id number] [place] [address]- 9853 Mar, [facility] [place] [facility] [address] [id number] [place] [address]- 9912 Mar, [facility] [place] [facility] [address] [id number] [place] [address]- 3566 Mar, [facility] [place] [facility] [address] [id number] [place] [address]- 0048 Mar, [facility] [place] [facility] [address] [id number] [place] [address]- 6227 Mar, [facility] [place] [facility] [address] [id number] [place] [address]- 3995 Mar, [facility] [place] [facility] [address] [id number] [place] [address]- 5634 Feb, [facility] [place] [facility] [address] [id number] [place] [address]- 5162 Feb, [facility] [place] [facility] [address] [id number] [place] [address]- 5862 Feb, [facility] [place] [facility] [address] [id number] [place] [address]- 5397 Jan, [facility] [place] [facility] [address] [id number] [place] [address]- 6790 Jan, [facility] [place] [facility] [address] [id number] [place] [address]- 4189 Jan, [facility] [place] [facility] [address] [id number] [place] [address]- 6245 Jan, [facility] [place] [facility] [address] [id number] [place] [address]- 4225 Jan, [facility] [place] [facility] [address] [id number] [place] 5692 Jan, [facility] [place] [facility] [address] [id number] [place] [address]- 8239 Jan, [facility] [place] [facility] [address] [id number] [place] [address]- 5319 Jan, [facility] [place] [facility] [address] [id number] [place] [address]- 9016 Jan, [facility] [place] [facility] [address] [id number] [place] [address]- 5563 Jan, [facility] [place] [facility] [address] [id number] [place] [address]- 3572 Nov, [facility] [place] [facility] [address] [id number] [place] [address]- 5740 Nov, [facility] [place] [facility] [address] [id number] [place] [address]- 3230 Nov, [facility] [place] [facility] [address] [id number] [place] [address]- 1638 Oct, [facility] [place] [facility] [address] [id number] [place] [address]- 4517 Oct, [facility] [place] [facility] [address] [id number] [place] [address]- 9271 Oct, [facility] [place] [facility] [address] [id number] [place] [address]- 4795 Oct, [facility] [place] [facility] [address] [id number] [place] [address]- 9114 Oct, [facility] [place] [facility] [address] [id number] [place] [address]- 6338 Oct, [facility] [place] [facility] [address] [id number] [place] [address]- 4044 Oct, [facility] [place] [facility] [address] [id number] [place] [address]- 0502 Oct, [facility] [place] [facility] [address] [id number] [place] [address]- 3659 Oct, [facility] [place] [facility] [address] [id number] [place] [address]- 3446 Sep, [facility] [place] [facility] [address] [id number] [place] [address]- 5859 Sep, [facility] [place] [facility] [address] [id number] [place] [address]- 0666 Sep, [facility] [place] [facility] [address] [id number] [place] [address]- 5649 Sep, [facility] [place] [facility] [address] [id number] [place] [address]- 3351 Sep, [facility] [place] [facility] [address] [id number] [place] [address]- 0941 Sep, [facility] [place] [facility] [address] [id number] [place] [address]- 0432 Sep, [facility] [place] [facility] [address] [id number] [place] [address]- 9199 Sep, [facility] [place] [facility] [address] [id number] [place] [address]- 9529 Sep, [facility] [place] [facility] [address] [id number] [place] [address]- 7159 August, [facility] [place] [facility] [address] [id number] [place] [address]- 2207 August, [facility] [place] [facility] [address] [id number] [place] [address]- 9009 August, [facility] [place] [facility] [address] [id number] [place] [address]- 7831 August, [facility] [place] [facility] [address] [id number] [place] [address]- 9323 August, [facility] [place] [facility] [address] [id number] [place] [address]- 1584 August, [facility] [place] [facility] [address] [id number] [place] [address]- 7921 Jul, [facility] [place] [facility] [address] [id number] [place] [address]- 4572 Jul, [facility] [place] [facility] [address] [id number] [place] [address]- 8698 Jul, [facility] [place] [facility] [address] [id number] [place] [address]- 6833 Jul, [facility] [place] [facility] [address] [id number] [place] [address]- 3262 Jul, [facility] [place] [facility] [address] [id number] [place] [address]- 3835 Jul, [facility] [place] [facility] [address] [id number] [place] [address]- 9691 Jun, [facility] [place] [facility] [address] [id number] [place] [address]- 7498 Jun, [facility] [place] [facility] [address] [id number] [place] [address]- 2824 May, [facility] [place] [facility] [address] [id number] [place] [address]- 4838 May, [facility] [place] [facility] [address] [id number] [place] [address]- 1356 May, [facility] [place] [facility] [address] [id number] [place] [address]- 9562 May, [facility] [place] [facility] [address] [id number] [place] [address]- 2796 Apr, [facility] [place] [facility] [address] [id number] [place] [address]- 6798 Apr, [facility] [address] [id number] [place] [address]- 8534 18 Mar, 2013 [facility] [place] [facility] [address] [id number] [place] 0702 18 Mar, 2013 [facility] [address] [id number] [place] 4093 17 Mar, 2013 [facility] [place] [facility] [address] [id number] [place] [address]- 1066 17 Mar, 2013 [facility] [place] [facility] [address] [id number] [place] 1358 Mar, [facility] [place] [facility] [address] [id number] [place] [address]- 2937 Mar, [facility] [place] [facility] [address] [facility] [id number] [place] [address]- 8402 Feb, [facility] [place] [facility] [address] [id number] [place] [address]- 0589 Feb, [facility] [place] [facility] [address] [facility] [id number] [place] [address]- 4060 14 Feb, 2013 [facility] [place] [facility] [address] [facility] [id number] [place] [address]- 2006 14 Feb, 2013 [facility] [place] [facility] [address] [id number] [place] [address]- 9454 05 Feb, 2013 [facility] [place] [facility] [address] [facility] [id number], [place] [address]- 8208 05 Feb, 2013 [facility] [place] [facility] [address] [id number] [place] [address]- 7304 24 Jan, 2013 [facility] [place] [facility] [address] [facility] [id number] [place] [address]- 5135 24 Jan, 2013 [facility] [place] [facility] [address] [id number], [place] [address]- 7720 Jan, [facility] [place] [facility] [address] [id number] [place] [address]- 3446 Jan, [facility] [place] [facility] [address] [id number] [place] [address]- 1676 Jan, [facility] [place] [facility] [address] [id number] [place] [address]- 6783 Jan, [facility] [place] [facility] [address] [id number] [place] [address]- 0339 Dec, [facility] [place] [facility] [address] [id number] [place] [address]- 7478 Dec, [facility] [place] [facility] [address] [id number] [place] [address]- 4984 Nov, [facility] [place] [facility] [address] [id number] [place] [address]- 8812 Nov, [facility] [place] [facility] [address] [id number] [place] [address]- 8820 Oct, [facility] [place] [facility] [address] [id number] [place] [address]- 111[address] Oct, [facility] [place] [facility] [address] [id number] [place] [address] Oct, [facility] [place] [facility] [address] [id number] [place] [address] Oct, [facility] [place] [facility] [address] [id number] [place] [address] Oct, [facility] [place] [facility] [address] [id number] [place] [address] Oct, [facility] [place] [facility] [address] [id number] [place] [address] Sep, [facility] [place] [facility] [address] [id number] [place] [address] Sep, [facility] [place] [facility] [address] [id number] [place] [address] Sep, [facility] [address] [id number] [place] [address] Sep, [facility] [address] [id number] [place] [address] August, [facility] [address] [id number] [place] [address] August, [facility] [address] [id number] [place] [address] August, [facility] [address] [id number] [place] [address] August, [facility] [address] [id number] [place] [address] August, [facility] [address] [id number] [place] [address] Jul, [facility] [place] [facility] [address] [id number] [place] [address] Jul, [facility] [address] [id number] [place] [address] Jul, [facility] [place] [facility] [address] [id number] [place] [address] Jul, [facility] [address] [id number] [place] [address] Jul, [facility] [place] [facility] [address] [id number] [place] [address] Jul, [facility] [place] [facility] [address] [id number] [place] [address] Jul, [facility] [place] [facility] [address] [id number] [place] [address] Jul, [facility] [place] [facility] [address] [id number] [place] [address] Jul, [facility] [place] [facility] [address] [id number] [place] [address] Jul, [facility] [address] [id number] [place] [id number] Jun, [facility] [address] [facility] [id number] [place] [address] Jun, [facility] [address] [id number] [place] [address] Jun, [facility] [address] [id number] [place] [address] Jun, [facility] [address] [id number] [place] [address] Jun, [facility] [address] [facility] [id number] [place] [address] May, [facility] [address] [id number] [place] [address] May, [facility] [address] [facility] [id number] [place] [address]- [address] May, [facility] [address] [id number] [place] [address] Apr, [facility] [address] [facility] [id number] [place] [address]- [address] Apr, [facility] [address] [id number] [place] [address]- [address] Apr, [facility] [address] [id number] [place] [address]- [address] Apr, [facility] [address] [id number] [place] [address]- [address] Apr, [facility] [address] [facility] [id number] [place] [address]- [address] Apr, [facility] [address] [id number] [place] [address] Mar, [facility] [place] [facility] [address] [id number] [place] [address]- [address] Mar, [facility] [place] [facility] [address] [id number] [place] [address] Mar, [facility] [place] [facility] [address] [id number] [place] [address]- [address] Mar, [facility] [place] [facility] [address] [id number] [place] [address] Feb, [facility] [place] [facility] [address] [id number] [place] [address] Feb, [facility] [place] [facility] [address] [id number] [place] [address]- [address] Feb, [facility] [place] [facility] [address] [id number] [place] [address] Feb, [facility] [place] [facility] [address] [id number] [place] [address]- [address] Feb, [facility] [place] [facility] [address] [id number] [place] [address] Feb, [facility] [place] [facility] [address] [id number] [place] [address] Feb, [facility] [place] [facility] [address] [facility] [id number], [place] [address] Feb, [facility] [place] [facility] [address] [id number], [place] [address] Feb, [facility] [place] [facility] [address] [id number] [place] [address] 267[address] Feb, [facility] [place] [facility] [address] [id number], [place] [address] Feb, [facility] [place] [facility] [address] [id number], [place] [address] 5[address] Feb, [facility] [place] [facility] [address] [id number], [place] [address] 115[address] Feb, [facility] [place] [facility] [address] [id number] [place] [address] 295[address] Feb, [facility] [place] [facility] [address] [id number] [address] Feb, [facility] [place] [facility] [address] [facility] [id number] [place] [address] 4629 Feb, [facility] [place] [facility] [address] [id number], [place] [address] 1001 Jan, [facility] [place] [facility] [address] [id number] [place] [address] Jan, [facility] [place] [facility] [address] [id number] [place] [address] 1974 Jan, [facility] [place] [facility] [address] [facility] [id number], [place] [address] 7247 Jan, [facility] [place] [facility] [address] [id number], [place] [address] 29[address] Jan, [facility] [place] [facility] [address] [id number], [place] [address] 0683 Jan, [facility] [place] [facility] [address] [facility] [id number], [place] [address] 9[address] Jan, [facility] [place] [facility] [address] [id number], [place] [address]- 7114 Jan, [facility] [place] [facility] [address] [facility] [id number], [place] [address]46 16 Jan, 2012 [facility] [place] [facility] [address] [id number], [place] [address] 3520 Jan, [facility] [place] [facility] [address] [facility] [id number], [place] [address] Jan, [facility] [place] [facility] [address] [facility] [id number], [place] [address]- 8785 Jan, [facility] [place] [facility] [address] [id number] [place] [address] 2546 26 Sep, 2011 [facility] [place] [facility] [address] [id number] [place] [address] 2546 26 Sep, 2011 [facility] [place] [facility] [address] [id number] [place] [address] 2546 24 Sep, 2011 [facility] [place] [facility] [address] [id number] [place] [address] 2546 23 Sep, 2011 [facility] [place] [facility] [address] [id number] [place] [address] 2546 22 Sep, 2011 [facility] [place] [facility] [address] [id number] [place] [address] 2546 21 Sep, 2011 [facility] [place] [facility] [address] [id number] [place] [address] 2545 20 Sep, 2011 [facility] [place] [facility] [address] [id number] [place] [address] 2543 20 Sep, 2011 [facility] [place] [facility] [address] [id number] [place] [address] 2540 07 Sep, 2011 [facility] [place] [facility] [address] [id number] [place] [address] 2546 06 Sep, 2011 [facility] [place] [facility] [address] [id number] [place] [address] 2540 06 Sep, 2011 [facility] [place] [facility] [address] [id number] [place] [address] 2546 05 Sep, 2011 [facility] [place] [facility] [address] [id number] [place] [address] 2545 23 Nov, 2011 [facility] [place] [facility] [address] [id number] [place] [address] 2546 17 Nov, 2011 [facility] [place] [facility] [address] [id number] [place] [address] 2546 13 Nov, 2011 [facility] [place] [facility] [address] [id number] [place] [address] 4583 Nov, [facility] [place] [facility] [address] [id number] [place] [address] 3248 Nov, [facility] [place] [facility] [address] [id number] [place] [address] 6493 Nov, [facility] [place] [facility] [address] [id number] [place] [address] 2908 Nov, [facility] [place] [facility] [address] [id number] [place] [address] 1540 Nov, [facility] [place] [facility] [address] [id number] [place] [address] 0682 Oct, [facility] [place] [facility] [address] [id number] [place] [address] 0698 Oct, [facility] [place] [facility] [address] [id number] [place] [address] 3257 Oct, [facility] [place] [facility] [address] [id number] [place] [address] 5135 Oct, [facility] [place] [facility] [address] [id number] [place] [address]- 4588 Oct, [facility] [place] [facility] [address] [id number] [place] [address]- 0928 Oct, [facility] [place] [facility] [address] [id number] [place] [address]- 7692 Oct, [facility] [place] [facility] [address] [id number] [place] [address] 6469 Sep, [facility] [place] [facility] [address] [id number] [place] [address]- 6208 Sep, [facility] [place] [facility] [address] [id number] [place] [address]- 6119 August, [facility] [place] [facility] [address] [id number] [place] [address]- 8438 August, [facility] [place] [facility] [address] [id number] [place] [address]- 0514 August, [facility] [address] [id number] [place] [address]- 5145 August, [facility] [place] [facility] [address] [id number] [place] [address] 7191 Jul, [facility] [place] [facility] [address] [id number] [place] [address] 5549 Jul, [facility] [place] [facility] [address] [id number] [place] [address]- 6942 Jul, [facility] [place] [facility] [address] [id number] [place] [address]- 0176 Jul, [facility] [place] [facility] [address] [id number] [place] [address] 3673 Jul, [facility] [address] [id number] [place] [address]- 2294 Jul, [facility] [place] [facility] [address] [id number] [place] [address]- 9295 Jul, [facility] [place] [facility] [address] [id number] [place] [address] 5734 Jul, [facility] [place] [facility] [address] [id number] [place] [address]- 3755 Jul, [facility] [place] [facility] [address] [id number] [place] [address]- 1084 23 Jun, 2011 [facility] [place] [facility] [address] [id number] [place] [address]- 9798 19 Jun, 2011 [facility] [place] [facility] [address] [id number] [place] [address]- 7236 15 Jun, 2011 [facility] [place] [facility] [address] [id number] [place] [address]- 7285 14 Jun, 2011 [facility] [place] [facility] [address] [id number] [place] [address]- 9442 12 Jun, 2011 [facility] [place] [facility] [address] [id number] [place] [address]- 7565 Jun, [facility] [place] [facility] [address] [id number] [place] [address]- 4026 Jun, [facility] [place] [facility] [address] [id number] [place] [address]- 7076 May, [facility] [place] [facility] [address] [id number] [place] [address]- 0736 May, [facility] [place] [facility] [address] [id number] [place] [address]- 0450 May, [facility] [place] [facility] [address] [id number] [place] [address]- 5766 May, [facility] [place] [facility] [address] [id number] [place] [address]- 7415 May, [facility] [place] [facility] [address] [id number] [place] [address]- 5251 Apr, [facility] [place] [facility] [address] [id number] [place] [address]- 2626 Apr, [facility] [place] [facility] [address] [id number] [place] [address]- 1145 Apr, [facility] [place] [place] [facility] [address] [id number] [place] [address]- 3817 Apr, [facility] [place] [facility] [address] [id number] [place] [address]- 8397 Apr, [facility] [place] [facility] [address] [id number] [place] [address]- 0774 Mar, [facility] [place] [facility] [address] [id number] [place] [address]- 2176 Mar, [facility] [place] [facility] [address] [id number] [place] [address]- 7775 Mar, [facility] [place] [facility] [address] [id number] [place] [address]- 1014 Mar, [facility] [place] [facility] [address] [id number] [place] [address]- 6414 Mar, [facility] [place] [facility] [address] [id number] [place] [address]- 4228 Mar, [facility] [place] [facility] [address] [id number] [place] [address]- 7686 Mar, [facility] [place] [facility] [address] [id number] [place] [address]- 8969 Feb, [facility] [place] [facility] [address] [id number] [place] [address]- 1637 Feb, [facility] [place] [facility] [address] [id number] [place] [address]- 7535 Feb, [facility] [place] [facility] [address] [facility] [id number] [place] [address]- 7541 Feb, [facility] [place] [facility] [address] [id number] [place] [address]- 8179 Jan, [facility] [place] [facility] [address] [id number] [place] [address]- 8397 Jan, [facility] [place] [facility] [address] [facility] [id number] [place] [address]- 6512 Jan, [facility] [place] [facility] [address] [id number] [place] [address]- 0249 Jan, [facility] [place] [facility] [address] [id number] [place] [address]- 5443 Nov, [facility] [place] [facility] [address] [id number] [place] [address] Mar, [facility] [place] [facility] [address] [id number] [place] [address]- 7574 Mar, [facility] [place] [facility] [address] [facility] [id number] [place] [address]- 4990 Mar, [facility] [place] [facility] [address] [id number], [place] [address]- 2546 Mar, [facility] [address] [id number], [place] [address]- 9376 Mar, [facility] [address] [id number], [place] [address]- 2546 Mar, [facility] [id number], [place] [address]- 8342 Feb, [facility] [id number], [place] [address]- 8103 Feb, [facility] [id number] [place] [address]- 8023 Jan, [facility] [id number], [place] [address]- 8374 Jan, [facility] [id number], [place] [address]- 8921 Jan, IMMUNIZATIONS No Known Immunizations SOCIAL HISTORY Never Assessed REASON FOR VISIT Refill request PLAN OF CARE VITAL SIGNS MEDICATIONS [...] 2020 & 2007 Surgical History Bladder surgery [facility] 03/2016 Surgical History Neurotransmitter placed 10/2017 Hospitalization History Surgeries Only Hospitalization History bacterial meningitis December 2016 Hospitalization History [facility] psych for SI 1988 Hospitalization History [facility]-Altered mental status 05/2017
--- OUTSIDE RECORDS SUMMARY | 2018-05-29 07:40 | XMS REPORT ---
Author Author ZHANE BOSCH [facility] Address [address] [place] [address] Care Team Providers Care Driver'S License Reviewing Officer Name Role Phone ZHANE BOSCH Unavailable PROBLEMS Type Condition ICD9-CM Code PRA33-VS Code Onset Dates Condition Status SNOMED Code Problem Low back pain M54.5 Active 978986361 Problem Abnormal chest CT R93.8 Active 999083526 Problem Dysthymic disorder F34.1 Active 14835096 Problem Generalized anxiety disorder F41.1 Active 29283799 Problem Coronary artery disease involving gila river coronary artery of [place] heart, angina presence unspecified I25.10 Active 9611995161378 Problem Restless leg G25.81 Active 10648051 Problem Hypothyroid E03.9 Active 48649661 Problem Insomnia G47.00 Active 604916615 Problem Asthma J45.909 Active 109631939 Problem Chronic kidney disease, unspecified N18.9 Active 790105139 Problem Palpitations R00.2 Active 72392767 Problem Anemia in chronic kidney disease D63.1 Active 626187294734863 Problem Depressed F32.9 Active 96497641 Problem Bipolar disorder, current episode manic without psychotic features F31.10 Active 467837597 Problem Primary osteoarthritis of left knee M17.12 Active 420977265 Problem Degenerative tear of medial meniscus of left knee M23.204 Active 587224887 Problem Chronic pain syndrome G89.4 Active 571451147 Problem Restless leg syndrome G25.81 Active 06388820 Problem History of colon polyps Z86.010 Active 442617373 Problem Functional 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 Active 97542487 Problem Chronic kidney disease, stage 4 (severe) N18.4 Active 944124166 Problem Stage 3 chronic kidney disease N18.3 Active 076537183 Problem Mood disorder F39 Active 43739717 Problem Seasonal allergic rhinitis due to pollen J30.1 Active 77430029 Problem Body mass index (BMI) of 40.0-44.9 in adult Z68.41 Active 047140499 Problem Other seasonal allergic rhinitis J30.2 Active 310991026 Problem Long-term use of high-risk medication Z79.899 Active 379871155 Problem Hypokalemia E87.6 Active 67349193 Problem Asthma with acute exacerbation in adult J45.901 Active 480771759 Problem History of anemia Z86.2 Active 980697021 Problem Vitamin D deficiency E55.9 Active 73293983 Problem Essential (primary) hypertension I10 Active 61715335 Problem Fibromyalgia M79.7 Active 532709919 Problem Mixed stress and urge urinary incontinence N39.46 Active 332266455 ALLERGIES No Information ENCOUNTERS Encounter Location Date Diagnosis [facility] [address] [address]- [address] Jan, [facility] [address] [address]- [address] Jan, [facility] [address] 8[address]11- 5981 Dec, Vitamin D deficiency E55.9 [facility] [address] 18378 2543 Dec, Vitamin D deficiency E55.9 [facility] [address] 55562 2546 24 Dec, 2017 Vitamin D deficiency E55.9 [facility] [address] 16642 2546 12 Dec, 2017 [facility] [address] 15392 2547 Dec, Fibromyalgia M79.7 [facility] [address] 69793- 0872 Nov, [facility] [address] 06211- 7934 Nov, [facility] [address] 82259- 9450 Nov, [facility] [id number] [place] [address] 73128- 8119 Nov, Fibromyalgia M79.7 ; Vision changes H53.9 ; Chest wall pain R07.89 and Chronic pain syndrome G89.4 [facility] [id number] [place] [address] 96055- 6588 Nov, [facility] [id number] [place] [address] 14204- 5158 Nov, Rash of hands R21 [facility] [id number] [place] [address] 12179- 7371 Nov, Generalized anxiety disorder F41.1 and Major depressive disorder, recurrent episode with anxious distress F33.9 [place] [id number] [place] [address] 20916- 9690 Nov, Fibromyalgia M79.7 [place] [id number] [place] [address] 72594- 3923 Nov, Complicated UTI (urinary tract infection) N39.0 [facility] [id number] [place] [address] 48635- 5192 Oct, [place] [id number] [place] [address] 09300- 6147 Oct, Generalized anxiety disorder F41.1 and Major depressive disorder, recurrent episode with anxious distress F33.9 [facility] [id number] [place] [address] 42201- 0369 Oct, [facility] [id number] [place] [address] 78619- 8378 Oct, Fibromyalgia M79.7 [facility] [id number] [place] [address] 67642- 5287 Sep, Restless leg syndrome G25.81 and Restless leg G25.81 [facility] [address] [address] Sep, [facility] [id number] [place] [address] 89902- 5622 Sep, Seasonal allergic rhinitis due to pollen J30.1 ; Screening for breast cancer Z12.31 ; Chest pain at rest R07.9 ; Restless leg syndrome G25.81 ; Essential (primary) hypertension I10 and Depressed F32.9 [place] [address] 97044- 3982 August, Fibromyalgia M79.7 [place] [address] 98127- 9186 August, [place] [address] 99909- 4936 August, [place] [address] 57525- 8724 August, Abnormal chest CT R93.8 [place] [address] 44580- 2160 August, Generalized anxiety disorder F41.1 and Major depressive disorder, recurrent episode with anxious distress F33.9 [place] [address] 84668- 4790 August, Abnormal chest CT R93.8 [place] [address] 94179- 7561 Jul, [place] [address] 67062- 9842 Jul, Chronic kidney disease, stage 4 (severe) N18.4 [place] [id number] [place] [address] 23141- 9557 Jul, [place] [address] 83848- 5512 Jul, Restless leg G25.81 ; Mixed stress and urge urinary incontinence N39.46 and Fibromyalgia M79.7 [place] [address] 21965- 6979 Jul, Chronic kidney disease, stage 4 (severe) N18.4 [facility] [id number] [place] [address] 23677- 6342 Jun, Orthostatic hypotension I95.1 ; Chronic kidney disease, stage 4 (severe) N18.4 ; Chest wall discomfort R07.89 and Body mass index (BMI) of 40.0-44.9 in adult Z68.41 [facility] [id number] [place] [address] 63899- 8513 Jun, [facility] [id number] [place] [address] 54701- 1271 Jun, Orthostatic hypotension I95.1 [place] [id number] [place] [address] 52157- 2292 Jun, [facility] [id number] [place] [address] 24983 -7490 Jun, Orthostatic hypotension I95.1 ; Dysuria R30.0 and Acute cystitis without hematuria N30.00 [facility] [id number] [place] [address] 76044- 0317 Jun, [place] [id number] [place] [address] 67744- 0125 Jun, Chronic kidney disease, stage 4 (severe) N18.4 [place] [id number] [place] [address] 30164- 4615 Jun, Fibromyalgia M79.7 [facility] [id number] [place] [address] 74509- 9440 Jun, [place] [id number] [place] [address] 53403- 4593 Jun, [facility] [id number] [place] [address] 41073- [address] May, [address] R93.8 and Stage 3 chronic kidney disease N18.3 [place] [address] [place] [address]- 2001 May, Chronic kidney disease, stage 4 (severe) N18.4 [facility] [id number] [place] [address] 51690- 8030 May, Chronic kidney disease, stage 4 (severe) N18.4 [facility] [id number] [place] [address] 03438- [address] May, [address] R93.8 [facility] [id number] [place] [address] 68741- 7876 May, [facility] [id number] [place] [address] 80068- 7671 May, [place] [id number] [place] [address] 26761- 5060 May, Generalized anxiety disorder F41.1 and Major depressive disorder, recurrent episode with anxious distress F33.9 [facility] [id number] [place] [address] 03388- 8371 May, Mood disorder F39 [place] [id number] [place] [address] 12257- 2579 Apr, [place] [id number] [place] [address] 65669- 8602 Apr, Infected skin lesion L08.9 and Muscle strain of right shoulder region, initial encounter S46.911A [facility] [id number] [place] [address] 18460- 7950 Apr, Generalized anxiety disorder F41.1 and Major depressive disorder, recurrent episode with anxious distress F33.9 [facility] [id number] [place] [address] 72258- 9323 Apr, [place] [id number] [place] [address] 58452- 0487 Apr, Recent urinary tract infection Z87.440 and Hypothyroid E03.9 [facility] [address] [place] [address] 41408- 0403 Apr, Generalized anxiety disorder F41.1 and Major depressive disorder, recurrent episode with anxious distress F33.9 [place] [address] [place] [address] 67368- 0913 Apr, Recent urinary tract infection Z87.440 [place] [id number] [place] [address] 18068- 2615 Mar, [facility] [id number] [place] [address] 98604 -1033 Mar, Dysuria R30.0 ; Acute cystitis without hematuria N30.00 and BMI 40.0-44.9, adult Z68.41 [place] [id number] [place] [address] 93249- 5760 Mar, [place] [id number] [place] [address] 65829- 4694 Mar, [place] [id number] [place] [address] 11916- 0333 Mar, Generalized anxiety disorder F41.1 and Major depressive disorder, recurrent episode with anxious distress F33.9 [place] [address] [address]- 5263 Feb, Conjunctivitis, bacterial H10.9 [place] [id number] [place] [address] 72875- 8691 Feb, [facility] [place] [id number] [place] [address] 07409 -8560 Feb, Conjunctivitis, bacterial H10.9 [place] [address] [id number] [place] [address] 27291- 6232 Feb, [facility] [id number] [place] [address] 38122 -0005 Feb, Dysuria R30.0 ; Acute cystitis N30.00 and BMI 40.0-44.9, adult Z68.41 [place] [id number] [place] [address] 45038- 1136 Feb, [place] [address] 69900- 4086 Feb, Generalized anxiety disorder F41.1 and Major depressive disorder, recurrent episode with anxious distress F33.9 [place] [address] 35086- 3564 Feb, Mood disorder F39 and BMI 40.0-44.9, adult Z68.41 [place] [address] 76943- 3587 Jan, [place] [address] 59445- 3529 Jan, [place] [address] 23368- 6417 Jan, Hypothyroid E03.9 [place] [id number] [place] [address] 46496- 8530 Jan, [address] 11853- 1332 Jan, Chronic kidney disease, unspecified N18.9 ; Hypokalemia E87.6 ; Essential (primary) hypertension I10 ; Fibromyalgia M79.7 ; Coronary artery disease involving g[place] river coronary artery of [place] heart, angina presence unspecified I25.10 ; Hypothyroid E03.9 and Encounter for immunization Z23 [place] [id number] [place] [address] 13014- 3943 Jan, Hypothyroid E03.9 [place] [address] 18212- 3186 Jan, [place] [id number] [place] [address] 52825- 1081 Dec, Vitamin D deficiency E55.9 [place] [address] 63084- 3685 28 Dec, 2016 Primary osteoarthritis of left knee M17.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 [facility] [id number] [place] [address] 10005 2546 19 Dec, 2016 Fibromyalgia M79.7 [facility] [address] [place] [address] 08082- 8576 18 Dec, 2016 Mood disorder F39 [facility] [id number] [place] [address] 78684- 1606 13 Dec, 2016 [facility] [id number] [place] [address] 58332- 7703 13 Dec, 2016 Generalized anxiety disorder F41.1 and Major depressive disorder, recurrent episode with anxious distress F33.9 [place] [id number] [place] [address] 33520- 0064 11 Dec, 2016 [place] [id number] [place] [address] 16644- 9132 08 Dec, 2016 Streptococcal meningitis G00.2 [facility] [id number] [place] [address] 32678- 6887 07 Dec, 2016 Streptococcal meningitis G00.2 [facility] [id number] [place] [address] 67882- 6010 07 Dec, 2016 [facility] [id number] [place] [address] 76290 2545 06 Dec, 2016 Streptococcal meningitis G00.2 [facility] [id number] [place] [address] 83006- 2541 06 Dec, 2016 [facility] [id number] [place] [address] 84878- 2879 06 Dec, 2016 Major depressive disorder, recurrent episode with anxious distress F33.9 [facility] [id number] [place] [address] 08566- 3723 Nov, Fever, unspecified fever cause R50.9 [facility] [id number] [place] [address] 93924- 4809 Nov, [facility] [id number] [place] [address] 17254- 3834 Nov, Hypothyroid E03.9 [facility] [id number] [place] [address] 46663- 4912 Nov, Generalized anxiety disorder F41.1 and Major depressive disorder, recurrent episode with anxious distress F33.9 [facility] [id number] [place] [address] 07402- 1125 Nov, [facility] [address] [id number] Oct, Dental examination Z01.20 [place] [id number] [place] [address] 81611- 3676 Oct, Generalized anxiety disorder F41.1 and Major depressive disorder, recurrent episode with anxious distress F33.9 [facility] [id number] [place] [address] 36249- 9123 Oct, Chronic kidney disease, stage 4 (severe) N18.4 [place] [id number] [place] [address] 47692- 3443 Oct, [facility] [id number] [place] [address] 91191- 5655 Oct, Fibromyalgia M79.7 [facility] [id number] [place] [address] 39261- 8883 Oct, [facility] [id number] [place] [address] 37905- 5190 Oct, Generalized anxiety disorder F41.1 ; Major depressive disorder, recurrent episode with anxious distress F33.9 and Bipolar disorder, current episode manic without psychotic features F31.10 [facility] [id number] [place] [address] 14779- 3269 Sep, [facility] [id number] [place] [address] 51518- 6477 Sep, [place] [id number] [place] [address] 51981- 6296 Sep, Vitamin D deficiency E55.9 [place] [id number] [place] [address] 60984- 9397 14 Sep, 2016 Vitamin D deficiency E55.9 [place] [id number] [place] [address] 78577- 8046 Sep, [place] [id number] [place] [address] 31192- 0630 Sep, Chronic kidney disease, stage 4 (severe) N18.4 ; Hypothyroid E03.9 ; Restless leg G25.81 ; Fibromyalgia M79.7 ; Essential ( primary) hypertension I10 ; Vitamin D deficiency E55.9 ; Dyspepsia R10.13 ; Anemia in chronic kidney disease D63.1 ; Chronic kidney disease, unspecified N18.9 ; Coronary artery disease involving [place] coronary artery of [place] heart , angina presence unspecified I25.10 ; Screening breast examination Z12.39 and Low back pain M54.5 [place] [id number] [place] [address] 12455- 8485 August, Generalized anxiety disorder F41.1 and Major depressive disorder, recurrent episode with anxious distress F33.9 [place] [id number] [place] [address] 88206- 3815 August, Generalized anxiety disorder F41.1 and Major depressive disorder, recurrent episode with anxious distress F33.9 [place] [id number] [place] [address] 67816- 5543 August, Fibromyalgia M79.7 [place] [id number] [place] [address] 58840- 0388 Jul, Generalized anxiety disorder F41.1 and Major depressive disorder, recurrent episode with anxious distress F33.9 [place] [id number] [place] [address] 80078- 1377 Jul, Fibromyalgia M79.7 [place] [id number] [place] [address] 15640- 3773 Jul, Generalized anxiety disorder F41.1 [place] [id number] [place] [address] 86726- 0120 May, [place] [id number] [place] [address] 77041- 0468 May, Hypothyroid E03.9 [place] [id number] [place] [address] 52271- 7185 May, Chronic kidney disease, stage 4 (severe) N18.4 ; Hypothyroid E03.9 ; Restless leg G25.81 ; Fibromyalgia M79.7 ; Essential ( primary) hypertension I10 ; Vitamin D deficiency E55.9 ; Dyspepsia R10.13 ; Acute non-recurrent maxillary sinusitis J01.00 ; Anemia in chronic kidney disease D63.1 ; Chronic kidney disease, unspecified N18.9 and Coronary artery disease involving g[place] coronary artery of [place] heart, angina presence unspecified I25.10 [place] [id number] [place] [address] 71664- 9438 May, Vitamin D deficiency, unspecified E55.9 [place] [id number] [place] [address] 10880- 9274 May, Generalized anxiety disorder F41.1 and Major depressive disorder, recurrent episode with anxious distress F33.9 [place] [id number] [place] [address] 12614- 4830 Apr, Pain in right knee M25.561 and Pain in left knee M25.562 [place] [id number] [place] [address] 03665- 5968 Apr, [place] [address] [place] [id number] [place] [address] 62413- 1950 Apr, [place] [address] [place] [id number] [place] [address] 50243- 6033 Apr, [place] [id number] [place] [address] 49842- 9823 Mar, Generalized anxiety disorder F41.1 and Major depressive disorder, recurrent episode with anxious distress F33.9 [place] [address] [id number] [place] [address] 63768- 8121 Mar, Generalized anxiety disorder F41.1 and Major depressive disorder, recurrent episode with anxious distress F33.9 [place] [address] [id number] [place] [address] 72583- 6062 Mar, [place] [address] 98993- 4518 Mar, [place] [address] [id number] [place] [address] 91524- 4329 Mar, [place] [address] [id number] [place] [address] 63723- 7783 Mar, Asthma J45.909 and Fibromyalgia M79.7 [place] [address] [id number] [place] [address] 93119- 6136 Mar, Chronic kidney disease, stage 4 (severe) N18.4 ; Vitamin D deficiency E55.9 and Essential (primary) hypertension I10 [place] [id number] [place] [address] 78181- 7457 Feb, [place] [address] [place] [address] [id number] [place] [address] 36341- 3309 Feb, Dysuria R30.0 ; Mixed stress and urge urinary incontinence N39.46 ; Fibromyalgia M79.7 and Chronic kidney disease, stage IV (severe) N18.4 [place] [address] [id number] [place] [address] 38146- 8978 Feb, Chronic kidney disease, stage 4 (severe) N18.4 [place] [address] [id number] [place] [address] 64166- 2233 Feb, Chronic kidney disease, stage 4 (severe) N18.4 [facility] [id number] [place] [address] 91473- 5348 Feb, [facility] [id number] [place] [address] 86043- 0501 Feb, Vitamin D deficiency, unspecified E55.9 [place] [address] 37352- 6172 Jan, [facility] [address] 18191- 8525 Jan, [facility] [address] [id number] [place] [address] 19875- 0250 Dec, [place] [address] 98712- 0183 Dec, Chronic kidney disease, stage 4 (severe) N18.4 [place] [address] [place] [id number] [place] [address] 49737- 7756 Dec, Dysthymic disorder F34.1 and Generalized anxiety disorder F41.1 [place] [address] [place] [id number] [place] [address] 37229- 9712 Dec, [place] [address] [place] [id number] [place] [address] 32272- 7517 Dec, [place] [address] [place] [id number] [place] [address] 57322- 3207 Dec, Dysthymic disorder F34.1 and Generalized anxiety disorder F41.1 [place] [address] [place] [id number] [place] [address] 82874- 0022 Dec, Dysuria R30.0 ; Chronic kidney disease, stage 4 (severe) N18.4 ; Hypertension I10 ; Dyspepsia R10.13 ; Yeast dermatitis B37.2 ; Palpitations R00.2 ; Hypothyroid E03.9 ; Functional 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 and Other seasonal allergic rhinitis J30.2 [facility] [id number] [place] [address] 99891 -3613 Dec, [facility] [address] [place] [id number] [place] [address] 00755 -[phone] Nov, Dysuria R30.0 and Stress incontinence N39.3 [facility] [id number] [place] [address] [phone] Nov, [facility] [id number] [place] [address] [phone] Nov, [facility] [id number] [place] [address] [phone] Nov, Osteoarthritis of knees, bilateral M17.0 [facility] [id number] [place] [address] [phone] Nov, Dysthymic disorder F34.1 and Generalized anxiety disorder F41.1 [facility] [id number] [place] [address] [phone] Nov, [facility] [id number] [place] [address] [phone] Nov, [facility] [id number] [place] [address] [phone] Nov, Urgency of urination R39.15 [facility] [id number] [place] [address] [phone] Nov, [facility] [id number] [place] [address] [phone] Nov, Chronic kidney disease, stage 4 (severe) N18.4 [facility] [id number] [place] [address] 45856- 5854 Oct, Hypertension I10 ; Coronary artery disease involving gila river coronary artery of gila river heart, angina presence unspecified I25.10 ; Palpitations R00.2 ; Hypothyroid E03.9 ; Right foot pain M79.671 ; Functional 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 and Other seasonal allergic rhinitis J30.2 [facility] [address] [place] [address] Oct, Dysthymic disorder F34.1 and Generalized anxiety disorder F41.1 [facility] [address] [address] 17[address] Sep, [facility] [address] [address] 7223 Sep, [facility] [id number] [place] [address] 07773- 5102 Sep, [facility] [id number] [place] [address] 49698- 0789 Sep, [facility] [id number] [place] [address] 46164- 0176 Sep, [facility] [id number] [place] [address] 19250- 1335 Sep, Dysthymic disorder F34.1 and Generalized anxiety disorder F41.1 [facility] [id number] [place] [address] 53019- 6124 Sep, Asthma with acute exacerbation in adult J45.901 ; Dysuria R30.0 ; Chronic kidney disease, stage 4 (severe) N18.4 and History of anemia Z86.2 [address] [address] 0132 Sep, Generalized anxiety disorder F41.1 and Dysthymic disorder F34.1 [facility] [address] [address] 12[address] August, Screening breast examination Z12.39 and Acute recurrent maxillary sinusitis J01.01 [facility] [id number] [place] [address] 94617- 4277 August, Osteoarthritis of knees, bilateral M17.0 [facility] [address] [address] 5107 August, Chronic kidney disease, stage 4 (severe) N18.4 ; Acute non- recurrent maxillary sinusitis J01.00 ; Urinary problem R39.89 ; Bowel habit changes R19.4 ; Functional 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 and History of colon polyps Z86.010 [address] [id number] [place] [address] 44883- 4255 29 Jul, 2015 Dysthymic disorder F34.1 and Generalized anxiety disorder F41.1 [place] [id number] [place] [address] 39321- 3141 Jul, [place] [id number] [place] [address] 57468- 7823 18 Jul, 2015 Dysthymic disorder F34.1 ; Generalized anxiety disorder F41.1 and penitentiary use of drug Z79.899 [place] [id number] [place] [address] 91424- 4457 Jul, [place] [id number] [place] [address] 63599- 0401 16 Jun, 2015 [place] [id number] [place] [address] 68453- 8556 08 Jun, 2015 [place] [id number] [place] [address] 80558- 8436 May, [place] [id number] [place] [address] 06547- 6542 May, Dysthymic disorder F34.1 and Generalized anxiety disorder F41.1 [place] [id number] [place] [address] 10181- 1015 Apr, Kidney disease N28.9 [place] [id number] [place] [address] 20770- 8074 Apr, Generalized anxiety disorder F41.1 and Dysthymic disorder F34.1 [place] [id number] [place] [address] 48074- 3636 Apr, Chronic kidney disease, stage 4 (severe) N18.4 [id number] [place] [address]- 5270 Apr, Generalized anxiety disorder F41.1 ; Major depression, recurrent F33.9 and Sleep disturbance G47.9 [facility] [id number] [place] [address] 38021- 2029 Mar, Generalized anxiety disorder F41.1 and Dysthymic disorder F34.1 [facility] [address] 57062- 3836 Mar, Generalized anxiety disorder F41.1 ; Dysthymic disorder F34.1 and Insomnia G47.00 [place] [id number] [place] [address] 06188- 5354 Mar, [address] [id number] [place] [address] 32130- 9313 Mar, [facility] [address] 72449- 0509 Mar, Osteoarthritis of knees, bilateral M17.0 [facility] [id number] [place] [address] 81708- 1333 Mar, Hypertension I10 ; Hypothyroid E03.9 ; Dysthymic disorder F34.1 ; Chronic kidney disease, stage 4 (severe) N18.4 and Nausea & vomiting R11.2 [facility] [id number] [place] [address] 83297- 3585 Mar, Generalized anxiety disorder F41.1 ; Dysthymic disorder F34.1 and Insomnia G47.00 [facility] [id number] [place] [address] 44477- 6958 Mar, Dehydration E86.0 ; Chronic kidney disease, stage 4 (severe ) N18.4 and Nausea & vomiting R11.2 [facility] [id number] [place] [address] 48540 -1887 08 Mar, 2015 Gastroenteritis K52.9 [facility] [id number] [place] [address] 10568- 5813 Mar, [id number] [place] [address] 11309- 1445 Mar, [address] [address]36- 8700 Feb, Dysthymic disorder F34.1 and Generalized anxiety disorder F41.[address] 06487- 2278 Jan, UTI (urinary tract infection) N39.0 ; Asthma J45.909 ; Coronary artery disease involving gila river coronary artery of gila river heart, angina presence unspecified I25.10 ; Hypertension I10 ; Hypothyroid E03.9 ; Vitamin D deficiency E55.9 ; Insomnia G47.00 ; Palpitations R00.2 ; Depressed F32.9 ; Restless leg G25.81 and Anxiety F41.[address] 62804- 3145 Jan, Dysthymic disorder F34.1 and Generalized anxiety disorder F41.[address] 51081- 1720 Jan, [address] 23478- 4530 Dec, [id number] [place] [address] 23435- 4121 Dec, Alkalosis 276.3 ; Chronic kidney disease, 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.4 ; Hyperpotassemia 276.7 ; Secondary hyperparathyroidism, renal 588.81 ; Proteinuria 791.0 ; Unspecified vitamin D deficiency 268.9 ; Anemia in chronic kidney disease 285.21 ; Other and unspecified hyperlipidemia 272.4 ; Hypertension, essential, benign 401.1 and Chronic kidney disease (CKD), stage III (moderate) 585.3 [id number] [place] [address] 97181- 2094 16 Dec, [address] 73661- 5204 Dec, Depressive disorder, not elsewhere classified 311 and Generalized anxiety disorder 300.02 [place] [id number] [place] [address] 43400- 7591 Dec, [facility] [id number] [place] [address] 52388- 9957 Dec, [address] [address] 53697- 7254 Nov, Depressive disorder, not elsewhere classified 311 and Generalized anxiety disorder 300.02 [address] 76075- 4335 Nov, Arthritis of both knees 716.96 [address] [place] [address] 71888- 1757 Nov, PAF (paroxysmal atrial fibrillation) 427.31 ; CAD (coronary artery disease) 414.00 ; Chest pain 786.50 and Chronic kidney disease (CKD) stage G4/A1, severely decreased glomerular filtration rate (GFR) between 15-29 mL/min/1.73 square meter and albuminuria creatinine ratio less than 30 mg/g 585.4 [id number] [place] [address] 27611- 9554 Oct, Coronary atherosclerosis of unspecified type of vessel, gila river or graft 414.00 ; Chronic kidney disease, 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.4 ; Hypertension 401.9 and Edema 782.3 [id number] [place] [address] 50482- 3624 Oct, Depressive disorder, not elsewhere classified 311 and Generalized anxiety disorder 300.02 [address] [id number] [place] [address] 32869- 1465 Oct, Depressive disorder, not elsewhere classified 311 and Generalized anxiety disorder 300.02 [place] [id number] [place] [address] 44616- 5348 Oct, [place] [id number] [place] [address] 34915- 0404 Oct, [place] [id number] [place] [address] 27188- 1477 Sep, [address] [id number] [place] [address] 97572- 2298 Sep, Chronic kidney disease, 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.[address] 97959- 8787 Sep, [address] [id number] [place] [address] 59601- 0752 Sep, Coronary atherosclerosis of unspecified type of vessel, gila river or graft 414.00 ; Hypertension 401.9 ; Edema 782.3 and Hypothyroidism 244.9 [id number] [place] [address] 70177- 9208 Sep, Coronary atherosclerosis of unspecified type of vessel, gila river or graft 414.00 ; Hypertension 401.9 ; Fibromyalgia 729.1 ; Edema 782.3 ; Hypothyroidism 244.9 and Anemia 285.9 [id number] [place] [address] 85927- 9426 Sep, Anxiety disorder, unspecified 300.00 and Depressive disorder , not elsewhere classified 311 [id number] [place] [address] 79469- 4451 Sep, [id number] [place] [address] 18759- 0390 August, Generalized anxiety disorder 300.02 [id number] [place] [address] 92909- 0218 August, Closed fracture of lateral malleolus 824.[address] 10989- 8235 Jul, [id number] [place] [address] 24532- 3038 Jul, [address] 21340- 6233 Jun, [facility] [place] [facility] [address] [id number] [place] [address]- 9548 Jun, [facility] [place] [facility] [address] [facility] [id number] [place] [address]- 1714 Jun, [facility] [place] [facility] [address] [facility] [id number] [place] [address]- 7160 Jun, [facility] [place] [facility] [address] [facility] [id number] [place] [address]- 3445 Jun, [facility] [place] [facility] [address] [id number] [place] [address]- 1013 Jun, [facility] [place] [facility] [address] [facility] [id number] [place] [address]- 3346 May, 2014 [facility] [place] [facility] [address] [facility] [id number] [place] [address]- 6436 19 May, 2014 [facility] [place] [facility] [address] [facility] [id number] [place] [address]- 5105 18 May, 2014 [facility] [place] [facility] [address] [facility] [id number] [place] [address]- 3828 18 May, 2014 [facility] [place] [facility] [address] [facility] [id number] [place] [address]- 5204 16 May, 2014 [facility] [place] [facility] [address] [facility] [id number], [place] [address]- 3267 16 May, 2014 [facility] [place] [facility] [address] [facility] [id number], [place] [address]- 4312 13 May, 2014 [facility] [place] [facility] [address] [facility] [id number] [place] [address]- 4543 13 May, 2014 [facility] [place] [facility] [address] [facility] [id number], [place] [address]- 4101 10 May, 2014 [facility] [place] [facility] [address] [facility] [id number], [place] [address]- 9257 10 May, 2014 [facility] [place] [facility] [address] [id number] [place] [address]- 1669 Apr, [facility] [place] [facility] [address] [id number] [place] [address]- 1929 Apr, [facility] [place] [facility] [address] [id number] [place] [address]- 9784 Mar, [facility] [place] [facility] [address] [id number] [place] [address]- 0942 Mar, [facility] [place] [facility] [address] [id number] [place] [address]- 3270 Mar, [facility] [place] [facility] [address] [id number] [place] [address]- 3303 Mar, [facility] [place] [facility] [address] [id number] [place] [address]- 5452 Mar, [facility] [place] [facility] [address] [id number] [place] [address]- 6660 Mar, [facility] [place] [facility] [address] [id number] [place] [address]- 0331 Mar, [facility] [place] [facility] [address] [id number] [place] [address]- 6669 Feb, [facility] [place] [facility] [address] [id number] [place] [address]- 3648 Feb, [facility] [place] [facility] [address] [id number] [place] [address]- 2600 Feb, [facility] [place] [facility] [address] [id number] [place] [address]- 3697 Jan, [facility] [place] [facility] [address] [id number] [place] [address]- 4154 Jan, [facility] [place] [facility] [address] [id number] [place] [address]- 4226 Jan, [facility] [place] [facility] [address] [id number] [place] [address]- 7468 Jan, [facility] [place] [facility] [address] [id number] [place] [address]- 7566 Jan, [facility] [place] [facility] [address] [id number] [place] 6473 Jan, [facility] [place] [facility] [address] [id number] [place] [address]- 5877 Jan, [facility] [place] [facility] [address] [id number] [place] [address]- 8700 Jan, [facility] [place] [facility] [address] [id number] [place] [address]- 2109 Jan, [facility] [place] [facility] [address] [id number] [place] [address]- 5572 Jan, [facility] [place] [facility] [address] [id number] [place] [address]- 9559 Nov, [facility] [place] [facility] [address] [id number] [place] [address]- 2065 Nov, [facility] [place] [facility] [address] [id number] [place] [address]- 4833 Nov, [facility] [place] [facility] [address] [id number] [place] [address]- 4123 Oct, [facility] [place] [facility] [address] [id number] [place] [address]- 9165 Oct, [facility] [place] [facility] [address] [id number] [place] [address]- 0014 Oct, [facility] [place] [facility] [address] [id number] [place] [address]- 6333 Oct, [facility] [place] [facility] [address] [id number] [place] [address]- 0970 Oct, [facility] [place] [facility] [address] [id number] [place] [address]- 4957 Oct, [facility] [place] [facility] [address] [id number] [place] [address]- 2581 Oct, [facility] [place] [facility] [address] [id number] [place] [address]- 4386 Oct, [facility] [place] [facility] [address] [id number] [place] [address]- 7579 Oct, [facility] [place] [facility] [address] [id number] [place] [address]- 8322 Sep, [facility] [place] [facility] [address] [id number] [place] [address]- 0682 Sep, [facility] [place] [facility] [address] [id number] [place] [address]- 8126 Sep, [facility] [place] [facility] [address] [id number] [place] [address]- 7793 Sep, [facility] [place] [facility] [address] [id number] [place] [address]- 0206 Sep, [facility] [place] [facility] [address] [id number] [place] [address]- 1242 Sep, [facility] [place] [facility] [address] [id number] [place] [address]- 8492 Sep, [facility] [place] [facility] [address] [id number] [place] [address]- 6617 Sep, [facility] [place] [facility] [address] [id number] [place] [address]- 2306 Sep, [facility] [place] [facility] [address] [id number] [place] [address]- 4476 August, [facility] [place] [facility] [address] [id number] [place] [address]- 8012 August, [facility] [place] [facility] [address] [id number] [place] [address]- 4811 August, [facility] [place] [facility] [address] [id number] [place] [address]- 2227 August, [facility] [place] [facility] [address] [id number] [place] [address]- 9674 August, [facility] [place] [facility] [address] [id number] [place] [address]- 5348 August, [facility] [place] [facility] [address] [id number] [place] [address]- 2109 Jul, [facility] [place] [facility] [address] [id number] [place] [address]- 4835 Jul, [facility] [place] [facility] [address] [id number] [place] [address]- 9299 Jul, [facility] [place] [facility] [address] [id number] [place] [address]- 1995 Jul, [facility] [place] [facility] [address] [id number] [place] [address]- 6710 Jul, [facility] [place] [facility] [address] [id number] [place] [address]- 3657 Jul, [facility] [place] [facility] [address] [id number] [place] [address]- 6030 Jun, [facility] [place] [facility] [address] [id number] [place] [address]- 4441 Jun, [facility] [place] [facility] [address] [id number] [place] [address]- 4290 May, [facility] [place] [facility] [address] [id number] [place] [address]- 0812 May, [facility] [place] [facility] [address] [id number] [place] [address]- 5691 May, [facility] [place] [facility] [address] [id number] [place] [address]- 0647 May, [facility] [place] [facility] [address] [id number] [place] [address]- 3893 Apr, [facility] [place] [facility] [address] [id number] [place] [address]- 6642 Apr, [facility] [address] [id number] [place] [address]- 3371 18 Mar, 2013 [facility] [place] [facility] [address] [id number] [place]- 2205 18 Mar, 2013 [facility] [address] [id number] [place] 8215 17 Mar, 2013 [facility] [place] [facility] [address] [id number] [place] [address]- 5114 17 Mar, 2013 [facility] [place] [facility] [address] [id number] [place] 0113 Mar, [facility] [place] [facility] [address] [id number] [place] [address]- 6006 Mar, [facility] [place] [facility] [address] [facility] [id number] [place] [address]- 1154 Feb, [facility] [place] [facility] [address] [id number] [place] [address]- 2069 Feb, [facility] [place] [facility] [address] [facility] [id number] [place] [address]- 7645 14 Feb, 2013 [facility] [place] [facility] [address] [facility] [id number] [place] [address]- 2040 14 Feb, 2013 [facility] [place] [facility] [address] [id number] [place] [address]- 3083 05 Feb, 2013 [facility] [place] [facility] [address] [facility] [id number], [place] [address]- 9360 05 Feb, 2013 [facility] [place] [facility] [address] [id number] [place] [address]- 3537 24 Jan, 2013 [facility] [place] [facility] [address] [facility] [id number] [place] [address]- 3218 24 Jan, 2013 [facility] [place] [facility] [address] [id number], [place] [address]- 0030 Jan, [facility] [place] [facility] [address] [id number] [place] [address]- 0660 Jan, [facility] [place] [facility] [address] [id number] [place] [address]- 2606 Jan, [facility] [place] [facility] [address] [id number] [place] [address]- 6717 Jan, [facility] [place] [facility] [address] [id number] [place] [address]- 0215 Dec, [facility] [place] [facility] [address] [id number] [place] [address]- 3138 Dec, [facility] [place] [facility] [address] [id number] [place] [address]- 7038 Nov, [facility] [place] [facility] [address] [id number] [place] [address]- 2027 Nov, [facility] [place] [facility] [address] [id number] [place] [address]- 7066 Oct, [facility] [place] [facility] [address] [id number] [place] [address]- 4562 Oct, [facility] [place] [facility] [address] [id number] [place] [address]- 0927 Oct, [facility] [place] [facility] [address] [id number] [place] [address]- 4776 Oct, [facility] [place] [facility] [address] [id number] [place] [address]- 3819 Oct, [facility] [place] [facility] [address] [id number] [place] [address]- 2226 Oct, [facility] [place] [facility] [address] [id number] [place] [address]- 8378 Sep, [facility] [place] [facility] [address] [id number] [place] [address]- 1473 Sep, [facility] [place] [facility] [address] [id number] [place] [address]- 9023 Sep, [facility] [address] [id number] [place] [address] Sep, [facility] [address] [id number] [place] [address] August, [facility] [address] [id number] [place] [address] August, [facility] [address] [id number] [place] [address] August, [facility] [address] [id number] [place] [address] August, [facility] [address] [id number] [place] [address] August, [facility] [address] [id number] [place] [address] Jul, [facility] [place] [facility] [address] [id number] [place] [address] Jul, [facility] [address] [id number] [place] [address] Jul, [facility] [place] [facility] [address] [id number] [place] [address] Jul, [facility] [address] [id number] [place] [address] Jul, [facility] [place] [facility] [address] [id number] [place] [address] Jul, [facility] [place] [facility] [address] [id number] [place] [address] Jul, [facility] [place] [facility] [address] [id number] [place] [address] Jul, [facility] [place] [facility] [address] [id number] [place] [address] Jul, [facility] [place] [facility] [address] [id number] [place] [address] Jul, [facility] [address] [id number] [place] [id number] Jun, [facility] [address] [facility] [id number] [place] [address] Jun, [facility] [address] [id number] [place] [address] Jun, [facility] [address] [id number] [place] [address] Jun, [facility] [address] [id number] [place] [address] Jun, [facility] [address] [facility] [id number] [place] [address] May, [facility] [address] [id number] [place] [address] May, [facility] [address] [facility] [id number] [place] [address] May, [facility] [address] [id number] [place] [address] Apr, [facility] [address] [facility] [id number] [place] [address] Apr, [facility] [address] [id number] [place] [address] Apr, [facility] [address] [id number] [place] [address] Apr, [facility] [address] [id number] [place] [address] Apr, [facility] [address] [facility] [id number] [place] [address] Apr, [facility] [address] [id number] [place] [address] Mar, [facility] [place] [facility] [address] [id number] [place] [address] Mar, [facility] [place] [facility] [address] [id number] [place] [address] Mar, [facility] [place] [facility] [address] [id number] [place] [address] Mar, [facility] [place] [facility] [address] [id number] [place] [address] Feb, [facility] [place] [facility] [address] [id number] [place] [address] Feb, [facility] [place] [facility] [address] [id number] [place] [address] Feb, [facility] [place] [facility] [address] [id number] [place] [address] Feb, [facility] [place] [facility] [address] [id number] [place] [address] Feb, [facility] [place] [facility] [address] [id number] [place] [address] Feb, [facility] [place] [facility] [address] [id number] [place] [address] Feb, [facility] [place] [facility] [address] [facility] [id number], [place] [address] Feb, [facility] [place] [facility] [address] [id number], [place] [address] Feb, [facility] [place] [facility] [address] [id number] [place] [address] Feb, [facility] [place] [facility] [address] [id number], [place] [address] Feb, [facility] [place] [facility] [address] [id number], [place] [address] Feb, [facility] [place] [facility] [address] [id number], [place] [address] Feb, [facility] [place] [facility] [address] [id number] [place] [address] Feb, [facility] [place] [facility] [address] [id number] [address] Feb, [facility] [place] [facility] [address] [facility] [id number] [place] [address] Feb, [facility] [facility] [address] [id number], [place] [address] Jan, [facility] [place] [facility] [address] [id number] [place] [address] Jan, [facility] [place] [facility] [address] [id number] [place] [address] Jan, [facility] [place] [facility] [address] [facility] [id number] [address] Jan, [facility] [place] [facility] [address] [id number], [place] [address] Jan, [facility] [address] [id number] [address] Jan, [facility] [facility] [address] [facility] [id number], [place] [address] Jan, [facility] [address] [id number], [place] [address] Jan, [facility] [address] [facility] [id number], [place] [address] 16 Jan, 2012 [facility] [address] [id number], [place] [address] Jan, [facility] [address] [facility] [id number][place] [address] Jan, [facility] [address] [facility] [id number], [place] [address] Jan, [facility] [place] [facility] [address] [id number] [place] [address] 2546 26 Sep, 2011 [facility] [place] [facility] [address] [id number] [place] [address] 2546 26 Sep, 2011 [facility] [place] [facility] [address] [id number] [place] [address] 2546 24 Sep, 2011 [facility] [place] [facility] [address] [id number] [place] [address] 2546 23 Sep, 2011 [facility] [place] [facility] [address] [id number] [place] [address] 2546 22 Sep, 2011 [facility] [place] [facility] [address] [id number] [place] [address] 2546 21 Sep, 2011 [facility] [place] [facility] [address] [id number] [place] [address] 2549 20 Sep, 2011 [facility] [place] [facility] [address] [id number] [place] [address] 2548 20 Sep, 2011 [facility] [place] [facility] [address] [id number] [place] [address] 2548 07 Sep, 2011 [facility] [address] [id number] [place] [address] 2546 06 Sep, 2011 [facility] [address] [id number] [place] [address] 2548 06 Sep, 2011 [facility] [address] [id number] [place] [address] 2546 05 Sep, 2011 [facility] [place] [facility] [address] [id number] [place] [address] 2548 23 Nov, 2011 [facility] [place] [facility] [address] [id number] [place] [address] 2546 17 Nov, 2011 [facility] [address] [id number] [place] [address]- [address]46 13 Nov, 2011 [facility] [place] [facility] [address] [id number] [place] [address] Nov, [facility] [place] [address] [id number] [place] [address]- [address]12 Nov, [facility] [place] [facility] [address] [id number] [place] [address]- [address] Nov, [facility] [place] [facility] [address] [id number] [place] [address]- [address] Nov, [facility] [address] [id number] [place] [address]- [address]7 Nov, [facility] [place] [address] [id number] [place] [address] Oct, [facility] [address] [id number] [place] [address]- 6680 Oct, [facility] [address] [id number] [place] [address] Oct, [facility] [facility] [address] [id number] [place] [address]- 8260 Oct, [facility] [address] [id number] [place] [address] Oct, [facility] [address] [id number] [place] [address] 3539 Oct, [facility] [address] [id number] [place] [address]- 8224 Oct, [facility] [address] [id number] [place] [address]- [address] Sep, [facility] [address] [id number] [place] [address] Sep, [facility] [address] [id number] [place] [address] 1499 August, [facility] [address] [id number] [place] [address]706 August, [facility] [address] [id number] [place] [address] August, [facility] [address] [id number] [place] [address]- [address] August, [facility] [address] [id number] [place] [address]- [address]657 Jul, [facility] [address] [id number] [place] [address]- [address] Jul, [facility] [address] [id number] [place] [address]- 0746 Jul, [facility] [address] [id number] [place] [address]- 0297 Jul, [facility] [address] [id number] [place] [address]- 3196 Jul, [facility] [address] [id number] [place] [address]- 5680 Jul, [facility] [address] [id number] [place] [address]- [address] Jul, [facility] [address] [id number] [place] [address]- 2479 Jul, [facility] [address] [id number] [place] [address]- 6[address] Jul, [facility] [address] [id number] [place] [address]- 9347 23 Jun, 2011 [facility] [address] [id number] [place] [address]- 6940 19 Jun, 2011 [facility] [address] [id number] [place] [address]- 6370 15 Jun, 2011 [facility] [address] [id number] [place] [address]- 5258 14 Jun, 2011 [facility] [address] [id number] [place] [address]- 2884 12 Jun, 2011 [facility] [address] [id number] [place] [address]- 4543 Jun, [facility] [address] [id number] [place] [address]- 8226 Jun, [facility] [address] [id number] [place] [address]- 7546 May, [facility] [address] [id number] [place] [address]- 6216 May, [facility] [address] [id number] [place] [address]- 4139 May, [facility] [address] [id number] [place] [address]- 1266 May, [facility] [address] [id number] [place] [address]- 5642 May, [facility] [address] [id number] [place] [address]- 8583 Apr, [facility] [address] [id number] [place] [address]- 4906 Apr, [facility] [address] [id number] [place] [address]- 5552 Apr, [facility] [address] [id number] [place] [address]- 7262 Apr, [facility] [address] [id number] [place] [address]- 9984 Apr, [facility] [address] [id number] [place] [address]- 5643 Mar, [facility] [address] [id number] [place] [address]- 2936 Mar, [facility] [address] [id number] [place] [address]- 5965 Mar, [facility] [address] [id number] [place] [address]- 4676 Mar, [facility] [address] [id number] [place] [address]- 1992 Mar, [facility] [address] [id number] [place] [address]- 3904 Mar, [facility] [address] [id number] [place] [address]- 4456 Mar, [facility] [address] [id number] [place] [address]- 0042 Feb, [facility] [address] [id number] [place] [address]- 1420 Feb, [facility] [address] [id number] [place] [address]- 2141 Feb, [facility] [address] [facility] [id number] [place] [address]- 1820 Feb, [facility] [address] [id number] [place] [address]- 4003 Jan, [facility] [address] [id number] [place] [address]- 8205 Jan, [facility] [address] [facility] [id number] [place] [address]- 5156 Jan, [facility] [address] [id number] [place] [address]- 0822 Jan, [facility] [address] [id number] [place] [address]- 1241 Nov, [facility] [address] [id number] [place] [address] Mar, [facility] [address] [id number] [place] [address]- 4356 Mar, [facility] [address] [facility] [id number] [place] [address]- 0479 Mar, [facility] [address] [id number], [place] [address] Mar, [facility] [address] [id number], [place] [address] Mar, [facility] [address] [id number], [place] [address]- 2546 Mar, [facility] [id number], [place] [address]- 34[address] Feb, [facility] [id number], [place] [address]- [address] Feb, [facility] [id number] [place] [address]- [address]45 Jan, [facility] [id number], [place] [address]- 69[address] Jan, [facility] [id number], [place] [address]- [address] Jan, IMMUNIZATIONS No Known Immunizations SOCIAL HISTORY Never Assessed REASON FOR VISIT FYI PLAN OF CARE VITAL SIGNS MEDICATIONS Unknown [...] 2020 & 2007 Surgical History Bladder surgery [facility] 03/2016 Surgical History Neurotransmitter placed 10/2017 Hospitalization History Surgeries Only Hospitalization History 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
--- OUTSIDE RECORDS SUMMARY | 2018-05-29 07:41 | XMS REPORT ---
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 Name Role Phone ZHANE BOSCH Unavailable PROBLEMS Type Condition ICD9-CM Code MDB27-VT Code Onset Dates Condition Status SNOMED Code Problem Low back pain M54.5 Active 826071105 Problem Abnormal chest CT R93.8 Active 169729582 Problem Dysthymic disorder F34.1 Active 73348417 Problem Generalized anxiety disorder F41.1 Active 74835987 Problem Coronary artery disease involving [place] coronary artery of [place] heart, angina presence unspecified I25.10 Active 1413293427462 Problem Restless leg G25.81 Active 74866839 Problem Hypothyroid E03.9 Active 87927807 Problem Insomnia G47.00 Active 737786098 Problem Asthma J45.909 Active 468849459 Problem Chronic kidney disease, unspecified N18.9 Active 411633949 Problem Palpitations R00.2 Active 30865737 Problem Anemia in chronic kidney disease D63.1 Active 302323202793051 Problem Depressed F32.9 Active 33144282 Problem Bipolar disorder, current episode manic without psychotic features F31.10 Active 001743196 Problem Primary osteoarthritis of left knee M17.12 Active 430308027 Problem Degenerative tear of medial meniscus of left knee M23.204 Active 189586485 Problem Chronic pain syndrome G89.4 Active 592884707 Problem Restless leg syndrome G25.81 Active 31854883 Problem History of colon polyps Z86.010 Active 149297587 Problem Functional 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 Active 72014501 Problem Chronic kidney disease, stage 4 (severe) N18.4 Active 819155387 Problem Stage 3 chronic kidney disease N18.3 Active 710769565 Problem Mood disorder F39 Active 96587738 Problem Seasonal allergic rhinitis due to pollen J30.1 Active 38319376 Problem Body mass index (BMI) of 40.0-44.9 in adult Z68.41 Active 747421420 Problem Other seasonal allergic rhinitis J30.2 Active 264896782 Problem Long-term use of high-risk medication Z79.899 Active 359402629 Problem Hypokalemia E87.6 Active 75912931 Problem Asthma with acute exacerbation in adult J45.901 Active 664714985 Problem History of anemia Z86.2 Active 924472598 Problem Vitamin D deficiency E55.9 Active 17635082 Problem Essential (primary) hypertension I10 Active 35400786 Problem Fibromyalgia M79.7 Active 478909794 Problem Mixed stress and urge urinary incontinence N39.46 Active 718830719 ALLERGIES No Information ENCOUNTERS Encounter Location Date Diagnosis [facility] [address] [address] Jan, [facility] [address] [address] Jan, [facility] [address] [address]- [address] Dec, Vitamin D deficiency E55.9 [facility] [address] [address] 2542 Dec, Vitamin D deficiency E55.9 [facility] [address] [address] 2546 24 Dec, 2017 Vitamin D deficiency E55.9 [facility] [address] [address] 2546 12 Dec, 2017 [facility] [address] [address] 2543 Dec, Fibromyalgia M79.7 [facility] [address] [address]- [address] Nov, [facility] [address] [address]- [address] Nov, [facility] [address] [address]- [address] Nov, [facility] [id number] [place] [address] 66051- 4939 Nov, Fibromyalgia M79.7 ; Vision changes H53.9 ; Chest wall pain R07.89 and Chronic pain syndrome G89.4 [facility] [id number] [place] [address] 82590- 4422 Nov, [facility] [id number] [place] [address] 61798- 8600 Nov, Rash of hands R21 [facility] [id number] [place] [address] 86079- 2111 Nov, Generalized anxiety disorder F41.1 and Major depressive disorder, recurrent episode with anxious distress F33.9 [facility] [id number] [place] [address] 47562- 0477 Nov, Fibromyalgia M79.7 [facility] [id number] [place] [address] 16710- 9360 Nov, Complicated UTI (urinary tract infection) N39.0 [facility] [id number] [place] [address] 98776- 0415 Oct, [facility] [id number] [place] [address] 06108- 3275 Oct, Generalized anxiety disorder F41.1 and Major depressive disorder, recurrent episode with anxious distress F33.9 [facility] [id number] [place] [address] 15878- 6083 Oct, [facility] [id number] [place] [address] 57942- 7058 Oct, Fibromyalgia M79.7 [facility] [id number] [place] [address] 27355- 0331 Sep, Restless leg syndrome G25.81 and Restless leg G25.81 [facility] [address] [address] Sep, [facility] [id number] [place] [address] 79673- 9004 Sep, Seasonal allergic rhinitis due to pollen J30.1 ; Screening for breast cancer Z12.31 ; Chest pain at rest R07.9 ; Restless leg syndrome G25.81 ; Essential (primary) hypertension I10 and Depressed F32.9 [facility] [place] [address] [address]- 6[address] August, Fibromyalgia M79.7 [facility] [address] 97[address]- 8800 August, [place] [address] 26962- 2228 August, [place] [address] 9[address]- 3[address] August, [address] R93.8 [place] [address] 6[address]- 4113 August, Generalized anxiety disorder F41.1 and Major depressive disorder, recurrent episode with anxious distress F33.9 [facility] [address] [address]- [address] August, [address] R93.8 [facility] [address] 9[address]14- 7308 Jul, [place] [address] 81074- 9646 Jul, Chronic kidney disease, stage 4 (severe) N18.4 [facility] [id number] [place] [address] 44571- 0503 Jul, [facility] [address] 14[address]- 1561 Jul, Restless leg G25.81 ; Mixed stress and urge urinary incontinence N39.46 and Fibromyalgia M79.7 [facility] [address] 49401- 7198 Jul, Chronic kidney disease, stage 4 (severe) N18.4 [facility] [id number] [place] [address] 30773- 3963 Jun, Orthostatic hypotension I95.1 ; Chronic kidney disease, stage 4 (severe) N18.4 ; Chest wall discomfort R07.89 and Body mass index (BMI) of 40.0-44.9 in adult Z68.41 [facility] [id number] [place] [address] 96616- 8016 Jun, [facility] [id number] [place] [address] 61552- 7713 Jun, Orthostatic hypotension I95.1 [facility] [id number] [place] [address] 95985- 3523 Jun, [facility] [id number] [place] [address] 68349 -8026 Jun, Orthostatic hypotension I95.1 ; Dysuria R30.0 and Acute cystitis without hematuria N30.00 [facility] [id number] [place] [address] 00377- 2327 Jun, [facility] [id number] [place] [address] 38789- 9002 Jun, Chronic kidney disease, stage 4 (severe) N18.4 [facility] [place] [id number] [place] [address] 80302- 8638 Jun, Fibromyalgia M79.7 [facility] [id number] [place] [address] 88656- 3881 Jun, [facility] [place] [id number] [place] [address] 93630- 1979 Jun, [facility] [id number] [place] [address] 40570- [address] May, [address] R93.8 and Stage 3 chronic kidney disease N18.3 [place] [address] [place] [address]- 8906 May, Chronic kidney disease, stage 4 (severe) N18.4 [facility] [id number] [place] [address] 99833- 1085 May, Chronic kidney disease, stage 4 (severe) N18.4 [facility] [id number] [place] [address] 10629- [address] May, [address] R93.8 [facility] [id number] [place] [address] 89582- 4289 May, [facility] [id number] [place] [address] 57415- 5949 May, [facility] [id number] [place] [address] 57227- 1959 May, Generalized anxiety disorder F41.1 and Major depressive disorder, recurrent episode with anxious distress F33.9 [facility] [id number] [place] [address] 12864- 8289 May, Mood disorder F39 [facility] [address] [id number] [place] [address] 84538- 3630 Apr, [facility] [id number] [place] [address] 19399- 6421 Apr, Infected skin lesion L08.9 and Muscle strain of right shoulder region, initial encounter S46.911A [facility] [address] [place] [address] 13357- 6506 Apr, Generalized anxiety disorder F41.1 and Major depressive disorder, recurrent episode with anxious distress F33.9 [facility] [id number] [place] [address] 29028- 4593 Apr, [facility] [id number] [place] [address] 80364- 9809 Apr, Recent urinary tract infection Z87.440 and Hypothyroid E03.9 [facility] [address] [place] [address] 06052- 5874 Apr, Generalized anxiety disorder F41.1 and Major depressive disorder, recurrent episode with anxious distress F33.9 [facility] [id number] [place] [address] 28795- 4866 Apr, Recent urinary tract infection Z87.440 [facility] [id number] [place] [address] 11397- 6428 Mar, [facility] [id number] [place] [address] 46832 -8123 Mar, Dysuria R30.0 ; Acute cystitis without hematuria N30.00 and BMI 40.0-44.9, adult Z68.41 [facility] [id number] [place] [address] 23578- 3534 Mar, [facility] [id number] [place] [address] 49421- 8288 Mar, [facility] [address] [id number] [place] [address] 31064- 6114 Mar, Generalized anxiety disorder F41.1 and Major depressive disorder, recurrent episode with anxious distress F33.9 [facility] [address] [address]- 09[address] Feb, Conjunctivitis, bacterial H10.9 [facility] [id number] [place] [address] 94222- 7115 Feb, [facility] [place] [id number] [place] [address] 80305 -8666 Feb, Conjunctivitis, bacterial H10.9 [place] [address] [id number] [place] [address] 80011- 5932 Feb, [facility] [id number] [place] [address] 86698 -0241 Feb, Dysuria R30.0 ; Acute cystitis N30.00 and BMI 40.0-44.9, adult Z68.41 [facility] [place] [id number] [place] [address] 65379- 8137 Feb, [place] [address] 60956- 1176 Feb, Generalized anxiety disorder F41.1 and Major depressive disorder, recurrent episode with anxious distress F33.9 [place] [address] 89186- 6594 Feb, Mood disorder F39 and BMI 40.0-44.9, adult Z68.41 [place] [address] [address]- 2007 Jan, [place] [address] 95150- 9240 Jan, [place] [address] 58589- 1859 Jan, Hypothyroid E03.9 [facility] [id number] [place] [address] 94237- 9592 Jan, [address] 534[address]- 8047 Jan, Chronic kidney disease, unspecified N18.9 ; Hypokalemia E87.6 ; Essential (primary) hypertension I10 ; Fibromyalgia M79.7 ; Coronary artery disease involving [place] coronary artery of [place] heart, angina presence unspecified I25.10 ; Hypothyroid E03.9 and Encounter for immunization Z23 [place] [address] [id number] [place] [address] 34353- 9261 Jan, Hypothyroid E03.9 [place] [address] 29933- 2385 Jan, [facility] [id number] [place] [address] 19400- 5179 Dec, Vitamin D deficiency E55.9 [place] [address] 33053- 7006 28 Dec, 2016 Primary osteoarthritis of left knee M17.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 [facility] [id number] [place] [address] 23797 2546 19 Dec, 2016 Fibromyalgia M79.7 [facility] [id number] [place] [address] 38495- 5086 18 Dec, 2016 Mood disorder F39 [facility] [id number] [place] [address] 11752- 8695 13 Dec, 2016 [facility] [id number] [place] [address] 05501- 4434 13 Dec, 2016 Generalized anxiety disorder F41.1 and Major depressive disorder, recurrent episode with anxious distress F33.9 [place] [id number] [place] [address] 67711- 6541 11 Dec, 2016 [place] [id number] [place] [address] 28692- 5257 08 Dec, 2016 Streptococcal meningitis G00.2 [facility] [id number] [place] [address] 58537- 4324 07 Dec, 2016 Streptococcal meningitis G00.2 [facility] [id number] [place] [address] 79146- 2424 07 Dec, 2016 [facility] [id number] [place] [address] 88558 2542 06 Dec, 2016 Streptococcal meningitis G00.2 [facility] [address] [place] [address] 53160- 2548 06 Dec, 2016 [facility] [id number] [place] [address] 05961- 0518 06 Dec, 2016 Major depressive disorder, recurrent episode with anxious distress F33.9 [facility] [id number] [place] [address] 01658- 4976 Nov, Fever, unspecified fever cause R50.9 [facility] [id number] [place] [address] 97442- 7379 Nov, [facility] [id number] [place] [address] 52076- 1737 Nov, Hypothyroid E03.9 [facility] [id number] [place] [address] 94380- 0473 Nov, Generalized anxiety disorder F41.1 and Major depressive disorder, recurrent episode with anxious distress F33.9 [facility] [id number] [place] [address] 60855- 0617 Nov, [facility] [address] [id number] Oct, Dental examination Z01.20 [place] [address] [id number] [place] [address] 61947- 8462 Oct, Generalized anxiety disorder F41.1 and Major depressive disorder, recurrent episode with anxious distress F33.9 [facility] [id number] [place] [address] 99202- 6808 Oct, Chronic kidney disease, stage 4 (severe) N18.4 [place] [address] [id number] [place] [address] 78363- 7292 Oct, [facility] [id number] [place] [address] 71842- 4451 Oct, Fibromyalgia M79.7 [facility] [id number] [place] [address] 84268- 9409 Oct, [facility] [id number] [place] [address] 81538- 6841 Oct, Generalized anxiety disorder F41.1 ; Major depressive disorder, recurrent episode with anxious distress F33.9 and Bipolar disorder, current episode manic without psychotic features F31.10 [facility] [address] [place] [address] 76674- 9705 Sep, [facility] [id number] [place] [address] 00931- 7582 Sep, [place] [id number] [place] [address] 99721- 7488 Sep, Vitamin D deficiency E55.9 [place] [id number] [place] [address] 34548- 0352 14 Sep, 2016 Vitamin D deficiency E55.9 [facility] [address] [id number] [place] [address] 70067- 8844 Sep, [place] [address] [id number] [place] [address] 93609- 2084 Sep, Chronic kidney disease, stage 4 (severe) N18.4 ; Hypothyroid E03.9 ; Restless leg G25.81 ; Fibromyalgia M79.7 ; Essential ( primary) hypertension I10 ; Vitamin D deficiency E55.9 ; Dyspepsia R10.13 ; Anemia in chronic kidney disease D63.1 ; Chronic kidney disease, unspecified N18.9 ; Coronary artery disease involving [place] coronary artery of [place] heart , angina presence unspecified I25.10 ; Screening breast examination Z12.39 and Low back pain M54.5 [place] [address] [id number] [place] [address] 70982- 9910 August, Generalized anxiety disorder F41.1 and Major depressive disorder, recurrent episode with anxious distress F33.9 [facility] [address] [id number] [place] [address] 71637- 1019 August, Generalized anxiety disorder F41.1 and Major depressive disorder, recurrent episode with anxious distress F33.9 [facility] [id number] [place] [address] 48975- 2993 August, Fibromyalgia M79.7 [place] [id number] [place] [address] 11844- 3959 Jul, Generalized anxiety disorder F41.1 and Major depressive disorder, recurrent episode with anxious distress F33.9 [facility] [id number] [place] [address] 03077- 7430 Jul, Fibromyalgia M79.7 [place] [id number] [place] [address] 30603- 2243 Jul, Generalized anxiety disorder F41.1 [place] [id number] [place] [address] 30801- 0660 May, [place] [address] [id number] [place] [address] 69565- 3060 May, Hypothyroid E03.9 [place] [id number] [place] [address] 62511- 0772 May, Chronic kidney disease, stage 4 (severe) N18.4 ; Hypothyroid E03.9 ; Restless leg G25.81 ; Fibromyalgia M79.7 ; Essential ( primary) hypertension I10 ; Vitamin D deficiency E55.9 ; Dyspepsia R10.13 ; Acute non-recurrent maxillary sinusitis J01.00 ; Anemia in chronic kidney disease D63.1 ; Chronic kidney disease, unspecified N18.9 and Coronary artery disease involving [place] coronary artery of [place] heart, angina presence unspecified I25.10 [place] [id number] [place] [address] 89854- 8482 May, Vitamin D deficiency, unspecified E55.9 [place] [id number] [place] [address] 81537- 2707 May, Generalized anxiety disorder F41.1 and Major depressive disorder, recurrent episode with anxious distress F33.9 [place] [id number] [place] [address] 59611- 6377 Apr, Pain in right knee M25.561 and Pain in left knee M25.562 [place] [id number] [place] [address] 46688- 0667 Apr, [place] [address] [id number] [place] [address] 62579- 9134 Apr, [place] [address] [id number] [place] [address] 05610- 0980 Apr, [place] [id number] [place] [address] 53889- 6016 Mar, Generalized anxiety disorder F41.1 and Major depressive disorder, recurrent episode with anxious distress F33.9 [place] [id number] [place] [address] 02307- 0033 Mar, Generalized anxiety disorder F41.1 and Major depressive disorder, recurrent episode with anxious distress F33.9 [place] [address] [id number] [place] [address] 26822- 1220 Mar, [place] [address] 03912- 8918 Mar, [place] [id number] [place] [address] 80804- 6740 Mar, [place] [id number] [place] [address] 72510- 2084 Mar, Asthma J45.909 and Fibromyalgia M79.7 [place] [address] [id number] [place] [address] 62609- 4128 Mar, Chronic kidney disease, stage 4 (severe) N18.4 ; Vitamin D deficiency E55.9 and Essential (primary) hypertension I10 [place] [id number] [place] [address] 72037- 9341 Feb, [place] [address] [id number] [place] [address] 48796- 8288 Feb, Dysuria R30.0 ; Mixed stress and urge urinary incontinence N39.46 ; Fibromyalgia M79.7 and Chronic kidney disease, stage IV (severe) N18.4 [place] [address] [id number] [place] [address] 15160- 0050 Feb, Chronic kidney disease, stage 4 (severe) N18.4 [place] [id number] [place] [address] 71238- 1313 Feb, Chronic kidney disease, stage 4 (severe) N18.4 [facility] [id number] [place] [address] 01100- 2761 Feb, [facility] [address] [id number] [place] [address] 01798- 9188 Feb, Vitamin D deficiency, unspecified E55.9 [place] [address] 08681- 1848 Jan, [facility] [address] [phone] Jan, [facility] [id number] [place] [address] [phone]- [phone] Dec, [place] [address] [address]- [address] Dec, Chronic kidney disease, stage 4 (severe) N18.4 [place] [id number] [place] [address] 96969- 0609 Dec, Dysthymic disorder F34.1 and Generalized anxiety disorder F41.1 [place] [id number] [place] [address] [id number]- [phone] Dec, [place] [id number] [place] [address] [phone] Dec, [place] [id number] [place] [address] 85743- 7272 Dec, Dysthymic disorder F34.1 and Generalized anxiety disorder F41.1 [place] [id number] [place] [address] [phone]- 8324 Dec, Dysuria R30.0 ; Chronic kidney disease, stage 4 (severe) N18.4 ; Hypertension I10 ; Dyspepsia R10.13 ; Yeast dermatitis B37.2 ; Palpitations R00.2 ; Hypothyroid E03.9 ; Functional 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 and Other seasonal allergic rhinitis J30.2 [facility] [id number] [place] [address] [phone] Dec, [facility] [id number] [place] [address] [phone] -[phone] Nov, Dysuria R30.0 and Stress incontinence N39.3 [facility] [id number] [place] [address] 31514- [phone] Nov, [facility] [id number] [place] [address] [phone]- [phone] Nov, [facility] [id number] [place] [address] [phone]- 9795 Nov, Osteoarthritis of knees, bilateral M17.0 [place] [id number] [place] [address] 52217- 5802 Nov, Dysthymic disorder F34.1 and Generalized anxiety disorder F41.1 [place] [address] [address] [id number] [place] [address] 99050- 1731 Nov, [facility] [id number] [place] [address] 34579- 0528 Nov, [facility] [id number] [place] [address] 67809- 4857 Nov, Urgency of urination R39.15 [facility] [id number] [place] [address] 84539- 3766 Nov, [facility] [id number] [place] [address] 03664- 6261 Nov, Chronic kidney disease, stage 4 (severe) N18.4 [facility] [id number] [place] [address] 79217- 0604 Oct, Hypertension I10 ; Coronary artery disease involving chevak coronary artery of chevak heart, angina presence unspecified I25.10 ; Palpitations R00.2 ; Hypothyroid E03.9 ; Right foot pain M79.671 ; Functional 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 and Other seasonal allergic rhinitis J30.2 [facility] [address] [place] [address] 9807 Oct, Dysthymic disorder F34.1 and Generalized anxiety disorder F41.1 [facility] [address] [address] 18[address] Sep, [facility] [address] [address] 7758 Sep, [facility] [id number] [place] [address] 99548- 3638 Sep, [facility] [id number] [place] [address] 32331- 5650 Sep, [facility] [id number] [place] [address] 45883- 8861 Sep, [facility] [id number] [place] [address] 70252- 0601 Sep, Dysthymic disorder F34.1 and Generalized anxiety disorder F41.1 [facility] [id number] [place] [address] 33541- 4351 Sep, Asthma with acute exacerbation in adult J45.901 ; Dysuria R30.0 ; Chronic kidney disease, stage 4 (severe) N18.4 and History of anemia Z86.2 [place] [address] [address] [address] 5251 Sep, Generalized anxiety disorder F41.1 and Dysthymic disorder F34.1 [facility] [address] [address] 5105 August, Screening breast examination Z12.39 and Acute recurrent maxillary sinusitis J01.01 [facility] [id number] [place] [address] 21177- 1165 August, Osteoarthritis of knees, bilateral M17.0 [facility] [address] [address]- 6056 August, Chronic kidney disease, stage 4 (severe) N18.4 ; Acute non- recurrent maxillary sinusitis J01.00 ; Urinary problem R39.89 ; Bowel habit changes R19.4 ; Functional 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 and History of colon polyps Z86.010 [place] [id number] [place] [address] 38028- 5140 29 Jul, 2015 Dysthymic disorder F34.1 and Generalized anxiety disorder F41.1 [place] [id number] [place] [address] 97606- 3064 Jul, [place] [id number] [place] [address] 31125- 1092 18 Jul, 2015 Dysthymic disorder F34.1 ; Generalized anxiety disorder F41.1 and detention use of drug Z79.899 [place] [id number] [place] [address] 47527- 6597 Jul, [place] [id number] [place] [address] 60868- 2501 16 Jun, 2015 [place] [id number] [place] [address] 40356- 8651 08 Jun, 2015 [place] [id number] [place] [address] 47871- 4921 May, [facility] [id number] [place] [address] 16780- 1715 May, Dysthymic disorder F34.1 and Generalized anxiety disorder F41.1 [place] [id number] [place] [address] 93716- 8566 Apr, Kidney disease N28.9 [place] [id number] [place] [address] 17493- 9875 Apr, Generalized anxiety disorder F41.1 and Dysthymic disorder F34.1 [place] [id number] [place] [address] 34494- 7844 Apr, Chronic kidney disease, stage 4 (severe) N18.4 [place] [address] [id number] [place] [address]- 5870 Apr, Generalized anxiety disorder F41.1 ; Major depression, recurrent F33.9 and Sleep disturbance G47.9 [facility] [id number] [place] [address] 48453- 3268 Mar, Generalized anxiety disorder F41.1 and Dysthymic disorder F34.1 [facility] [address] 38362- 2449 Mar, Generalized anxiety disorder F41.1 ; Dysthymic disorder F34.1 and Insomnia G47.00 [place] [id number] [place] [address] 49565- 1903 Mar, [place] [id number] [place] [address] 23725- 1542 Mar, [facility] [address] 40182- 3733 Mar, Osteoarthritis of knees, bilateral M17.0 [facility] [id number] [place] [address] 86911- 0316 Mar, Hypertension I10 ; Hypothyroid E03.9 ; Dysthymic disorder F34.1 ; Chronic kidney disease, stage 4 (severe) N18.4 and Nausea & vomiting R11.2 [facility] [id number] [place] [address] 96752- 2443 Mar, Generalized anxiety disorder F41.1 ; Dysthymic disorder F34.1 and Insomnia G47.00 [facility] [id number] [place] [address] 50965- 5364 Mar, Dehydration E86.0 ; Chronic kidney disease, stage 4 (severe ) N18.4 and Nausea & vomiting R11.2 [facility] [id number] [place] [address] 88596 -0122 08 Mar, 2015 Gastroenteritis K52.9 [facility] [id number] [place] [address] 34696- 3858 Mar, [place] [id number] [place] [address] 77207- 2653 Mar, [address] 27321- 1170 Feb, Dysthymic disorder F34.1 and Generalized anxiety disorder F41.[address] 22585- 3959 Jan, UTI (urinary tract infection) N39.0 ; Asthma J45.909 ; Coronary artery disease involving chevak coronary artery of chevak heart, angina presence unspecified I25.10 ; Hypertension I10 ; Hypothyroid E03.9 ; Vitamin D deficiency E55.9 ; Insomnia G47.00 ; Palpitations R00.2 ; Depressed F32.9 ; Restless leg G25.81 and Anxiety F41.[address] 86223- 3147 Jan, Dysthymic disorder F34.1 and Generalized anxiety disorder F41.[address] 56513- 1231 Jan, [address] 23255- 4042 Dec, [place] [id number] [place] [address] 83398- 7775 Dec, Alkalosis 276.3 ; Chronic kidney disease, 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.4 ; Hyperpotassemia 276.7 ; Secondary hyperparathyroidism, renal 588.81 ; Proteinuria 791.0 ; Unspecified vitamin D deficiency 268.9 ; Anemia in chronic kidney disease 285.21 ; Other and unspecified hyperlipidemia 272.4 ; Hypertension, essential, benign 401.1 and Chronic kidney disease (CKD), stage III (moderate) 585.3 [place] [id number] [place] [address] 28858- 8006 16 Dec, [address] 58566- 0095 Dec, Depressive disorder, not elsewhere classified 311 and Generalized anxiety disorder 300.02 [place] [id number] [place] [address] 47805- 6709 Dec, [facility] [id number] [place] [address] 26365- 7127 Dec, [place] [address] 35969- 7547 Nov, Depressive disorder, not elsewhere classified 311 and Generalized anxiety disorder 300.02 [place] [address] 97488- 1415 Nov, Arthritis of both knees 716.96 [place] [address] 94193- 5505 Nov, PAF (paroxysmal atrial fibrillation) 427.31 ; CAD (coronary artery disease) 414.00 ; Chest pain 786.50 and Chronic kidney disease (CKD) stage G4/A1, severely decreased glomerular filtration rate (GFR) between 15-29 mL/min/1.73 square meter and albuminuria creatinine ratio less than 30 mg/g 585.4 [place] [id number] [place] [address] 33742- 5689 Oct, Coronary atherosclerosis of unspecified type of vessel, chevak or graft 414.00 ; Chronic kidney disease, 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.4 ; Hypertension 401.9 and Edema 782.3 [place] [id number] [place] [address] 15123- 0136 Oct, Depressive disorder, not elsewhere classified 311 and Generalized anxiety disorder 300.02 [place] [id number] [place] [address] 26928- 0057 Oct, Depressive disorder, not elsewhere classified 311 and Generalized anxiety disorder 300.02 [place] [id number] [place] [address] 59150- 8344 Oct, [place] [id number] [place] [address] 49336- 0305 Oct, [place] [id number] [place] [address] 90302- 1673 Sep, [place] [id number] [place] [address] 51743- 3648 Sep, Chronic kidney disease, 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.[address] 29295- 7716 Sep, [place] [id number] [place] [address] 88304- 2954 Sep, Coronary atherosclerosis of unspecified type of vessel, chevak or graft 414.00 ; Hypertension 401.9 ; Edema 782.3 and Hypothyroidism 244.9 [place] [id number] [place] [address] 89799- 4779 Sep, Coronary atherosclerosis of unspecified type of vessel, chevak or graft 414.00 ; Hypertension 401.9 ; Fibromyalgia 729.1 ; Edema 782.3 ; Hypothyroidism 244.9 and Anemia 285.9 [place] [id number] [place] [address] 24815- 7734 Sep, Anxiety disorder, unspecified 300.00 and Depressive disorder , not elsewhere classified 311 [place] [id number] [place] [address] 26151- 4966 Sep, [place] [id number] [place] [address] 78339- 0403 August, Generalized anxiety disorder 300.02 [place] [id number] [place] [address] 94924- 0000 August, Closed fracture of lateral malleolus 824.[address] 45084- 4224 Jul, [id number] [place] [address] 01678- 6690 Jul, [address] 25163- 2832 Jun, [facility] [place] [facility] [address] [id number] [place] [address]- 9006 Jun, [facility] [place] [facility] [address] [facility] [id number] [place] [address]- 1918 Jun, [facility] [place] [facility] [address] [facility] [id number] [place] [address]- 4314 Jun, [facility] [place] [facility] [address] [facility] [id number] [place] [address]- 9631 Jun, [facility] [place] [facility] [address] [id number] [place] [address]- 9883 Jun, [facility] [place] [facility] [address] [facility] [id number] [place] [address]- 1123 May, 2014 [facility] [place] [facility] [address] [facility] [id number] [place] [address]- 9747 19 May, 2014 [facility] [place] [facility] [address] [facility] [id number] [place] [address]- 3760 18 May, 2014 [facility] [place] [facility] [address] [facility] [id number] [place] [address]- 9716 18 May, 2014 [facility] [place] [facility] [address] [facility] [id number] [place] [address]- 0220 16 May, 2014 [facility] [place] [facility] [address] [facility] [id number] [address]- 4944 16 May, 2014 [facility] [place] [facility] [address] [facility] [id number] [address]- 7057 13 May, 2014 [facility] [place] [facility] [address] [facility] [id number] [place] [address]- 6256 13 May, 2014 [facility] [place] [facility] [address] [facility] [id number] [address]- 9295 10 May, 2014 [facility] [place] [facility] [address] [facility] [id number] [address]- 0994 10 May, 2014 [facility] [place] [facility] [address] [id number] [place] [address]- 9497 Apr, [facility] [place] [facility] [address] [id number] [place] [address]- 4880 Apr, [facility] [place] [facility] [address] [id number] [place] [address]- 6769 Mar, [facility] [place] [facility] [address] [id number] [place] [address]- 4567 Mar, [facility] [place] [facility] [address] [id number] [place] [address]- 2770 Mar, [facility] [place] [facility] [address] [id number] [place] [address]- 1013 Mar, [facility] [place] [facility] [address] [id number] [place] [address]- 5594 Mar, [facility] [place] [facility] [address] [id number] [place] [address]- 5644 Mar, [facility] [place] [facility] [address] [id number] [place] [address]- 1700 Mar, [facility] [place] [facility] [address] [id number] [place] [address]- 7275 Feb, [facility] [place] [facility] [address] [id number] [place] [address]- 4489 Feb, [facility] [place] [facility] [address] [id number] [place] [address]- 1676 Feb, [facility] [place] [facility] [address] [id number] [place] [address]- 6972 Jan, [facility] [place] [facility] [address] [id number] [place] [address]- 0251 Jan, [facility] [place] [facility] [address] [id number] [place] [address]- 9442 Jan, [facility] [place] [facility] [address] [id number] [place] [address]- 6622 Jan, [facility] [place] [facility] [address] [id number] [place] [address]- 1406 Jan, [facility] [place] [facility] [address] [id number] [place] 7478 Jan, [facility] [place] [facility] [address] [id number] [place] [address]- 1860 Jan, [facility] [place] [facility] [address] [id number] [place] [address]- 1582 Jan, [facility] [place] [facility] [address] [id number] [place] [address]- 7125 Jan, [facility] [place] [facility] [address] [id number] [place] [address]- 6117 Jan, [facility] [place] [facility] [address] [id number] [place] [address]- 6303 Nov, [facility] [place] [facility] [address] [id number] [place] [address]- 0899 Nov, [facility] [place] [facility] [address] [id number] [place] [address]- 0719 Nov, [facility] [place] [facility] [address] [id number] [place] [address]- 2316 Oct, [facility] [place] [facility] [address] [id number] [place] [address]- 6921 Oct, [facility] [place] [facility] [address] [id number] [place] [address]- 6585 Oct, [facility] [place] [facility] [address] [id number] [place] [address]- 7683 Oct, [facility] [place] [facility] [address] [id number] [place] [address]- 3831 Oct, [facility] [place] [facility] [address] [id number] [place] [address]- 9663 Oct, [facility] [place] [facility] [address] [id number] [place] [address]- 5383 Oct, [facility] [place] [facility] [address] [id number] [place] [address]- 4356 Oct, [facility] [place] [facility] [address] [id number] [place] [address]- 4714 Oct, [facility] [place] [facility] [address] [id number] [place] [address]- 2157 Sep, [facility] [place] [facility] [address] [id number] [place] [address]- 3528 Sep, [facility] [place] [facility] [address] [id number] [place] [address]- 9272 Sep, [facility] [place] [facility] [address] [id number] [place] [address]- 3197 Sep, [facility] [place] [facility] [address] [id number] [place] [address]- 9352 Sep, [facility] [place] [facility] [address] [id number] [place] [address]- 6883 Sep, [facility] [place] [facility] [address] [id number] [place] [address]- 5556 Sep, [facility] [place] [facility] [address] [id number] [place] [address]- 2675 Sep, [facility] [place] [facility] [address] [id number] [place] [address]- 3801 Sep, [facility] [place] [facility] [address] [id number] [place] [address]- 4392 August, [facility] [place] [facility] [address] [id number] [place] [address]- 6073 August, [facility] [place] [facility] [address] [id number] [place] [address]- 7869 August, [facility] [place] [facility] [address] [id number] [place] [address]- 5600 August, [facility] [place] [facility] [address] [id number] [place] [address]- 4330 August, [facility] [place] [facility] [address] [id number] [place] [address]- 8539 August, [facility] [place] [facility] [address] [id number] [place] [address]- 4045 Jul, [facility] [place] [facility] [address] [id number] [place] [address]- 5715 Jul, [facility] [place] [facility] [address] [id number] [place] [address]- 3333 Jul, [facility] [place] [facility] [address] [id number] [place] [address]- 5033 Jul, [facility] [place] [facility] [address] [id number] [place] [address]- 1503 Jul, [facility] [place] [facility] [address] [id number] [place] [address]- 4049 Jul, [facility] [place] [facility] [address] [id number] [place] [address]- 4019 Jun, [facility] [place] [facility] [address] [id number] [place] [address]- 1392 Jun, [facility] [place] [facility] [address] [id number] [place] [address]- 7392 May, [facility] [place] [facility] [address] [id number] [place] [address]- 5795 May, [facility] [place] [facility] [address] [id number] [place] [address]- 4906 May, [facility] [place] [facility] [address] [id number] [place] [address]- 2080 May, [facility] [place] [facility] [address] [id number] [place] [address]- 3634 Apr, [facility] [place] [facility] [address] [id number] [place] [address]- 5149 Apr, [facility] [address] [id number] [place] [address]- 1865 18 Mar, 2013 [facility] [place] [facility] [address] [id number] [place] 3669 18 Mar, 2013 [facility] [address] [id number] [place] 4601 17 Mar, 2013 [facility] [place] [facility] [address] [id number] [place] [address]- 0369 17 Mar, 2013 [facility] [place] [facility] [address] [id number] [place] 1254 Mar, [facility] [place] [facility] [address] [id number] [place] [address]- 2021 Mar, [facility] [place] [facility] [address] [facility] [id number] [place] [address]- 0806 Feb, [facility] [place] [facility] [address] [id number] [place] [address]- 8716 Feb, [facility] [place] [facility] [address] [facility] [id number] [place] [address]- 8562 14 Feb, 2013 [facility] [place] [facility] [address] [facility] [id number] [place] [address]- 8224 14 Feb, 2013 [facility] [place] [facility] [address] [id number] [place] [address]- 9505 05 Feb, 2013 [facility] [place] [facility] [address] [facility] [id number] [address]- 3872 05 Feb, 2013 [facility] [place] [facility] [address] [id number] [place] [address]- 5068 24 Jan, 2013 [facility] [place] [facility] [address] [facility] [id number] [place] [address]- 2801 24 Jan, 2013 [facility] [place] [facility] [address] [id number] [place] [address]- 7393 Jan, [facility] [place] [facility] [address] [id number] [place] [address]- 7055 Jan, [facility] [place] [facility] [address] [id number] [place] [address]- 4060 Jan, [facility] [place] [facility] [address] [id number] [place] [address] Jan, [facility] [place] [facility] [address] [id number] [place] [address] Dec, [facility] [place] [facility] [address] [id number] [place] [address] Dec, [facility] [place] [facility] [address] [id number] [place] [address] Nov, [facility] [place] [facility] [address] [id number] [place] [address] Nov, [facility] [place] [facility] [address] [id number] [place] [address] Oct, [facility] [place] [facility] [address] [id number] [place] [address] Oct, [facility] [place] [facility] [address] [id number] [place] [address] Oct, [facility] [place] [facility] [address] [id number] [place] [address] Oct, [facility] [place] [facility] [address] [id number] [place] [address] Oct, [facility] [place] [facility] [address] [id number] [place] [address] Oct, [facility] [place] [facility] [address] [id number] [place] [address] Sep, [facility] [place] [facility] [address] [id number] [place] [address] Sep, [facility] [place] [facility] [address] [id number] [place] [address] Sep, [facility] [address] [id number] [place] [address] Sep, [facility] [address] [id number] [place] [address] August, [facility] [address] [id number] [place] [address] August, [facility] [address] [id number] [place] [address] August, [facility] [address] [id number] [place] [address] August, [facility] [address] [id number] [place] [address] August, [facility] [address] [id number] [place] [address] Jul, [facility] [place] [facility] [address] [id number] [place] [address] Jul, [facility] [address] [id number] [place] [address] Jul, [facility] [place] [facility] [address] [id number] [place] [address]- [address]7 Jul, [facility] [address] [id number] [place] [address] Jul, [facility] [place] [facility] [address] [id number] [place] [address] Jul, [facility] [place] [facility] [address] [id number] [place] [address] Jul, [facility] [place] [facility] [address] [id number] [place] [address] Jul, [facility] [place] [facility] [address] [id number] [place] [address] Jul, [facility] [place] [facility] [address] [id number] [place] [address] Jul, [facility] [address] [id number] [place] [id number] Jun, [facility] [address] [facility] [id number] [place] [address] Jun, [facility] [address] [id number] [place] [address] Jun, [facility] [address] [id number] [place] [address] Jun, [facility] [address] [id number] [place] [address] Jun, [facility] [address] [facility] [id number] [place] [address] May, [facility] [address] [id number] [place] [address]- [address] May, [facility] [address] [facility] [id number] [place] [address] May, [facility] [address] [id number] [place] [place] [address] Apr, [facility] [address] [facility] [id number] [place] [address]- [address] Apr, [facility] [address] [id number] [place] [address]- [address] Apr, [facility] [address] [id number] [place] [address] Apr, [facility] [address] [id number] [place] [address]- [address] Apr, [facility] [address] [facility] [id number] [place] [address] Apr, [facility] [address] [id number] [place] [address] Mar, [facility] [place] [facility] [address] [id number] [place] [address] Mar, [facility] [place] [facility] [address] [id number] [place] [address]- 1004 Mar, [facility] [place] [facility] [address] [id number] [place] [address] Mar, [facility] [facility] [address] [id number] [place] [address] Feb, [facility] [place] [facility] [address] [id number] [place] [address] 279[address] Feb, [facility] [place] [facility] [address] [id number] [place] [address] Feb, [facility] [place] [facility] [address] [id number] [place] [address] Feb, [facility] [place] [facility] [address] [id number] [place] [address] 14[address] Feb, [facility] [place] [facility] [address] [id number] [place] [address] 3947 Feb, [facility] [place] [facility] [address] [id number] [place] [address] 45[address] Feb, [facility] [place] [facility] [address] [facility] [id number] [place] [address] Feb, [facility] [place] [facility] [address] [id number] [place] [address] Feb, [facility] [place] [facility] [address] [id number] [place] [address]99 Feb, [facility] [place] [facility] [address] [id number] [place] [address] 95[address] Feb, [facility] [place] [facility] [address] [id number] [place] [address] 45[address] Feb, [facility] [place] [facility] [address] [id number] [place] [address] 8835 Feb, [facility] [place] [facility] [address] [id number] [place] [address]164 Feb, [facility] [place] [facility] [address] [id number] [place] [address] Feb, [facility] [place] [facility] [address] [facility] [id number] [place] [address] 8469 Feb, [facility] [place] [facility] [address] [id number] [place] [address] 4[address] Jan, [facility] [place] [facility] [address] [id number] [place] [address]- 3081 Jan, [facility] [place] [facility] [address] [id number] [place] [address]- 3337 Jan, [facility] [facility] [address] [facility] [id number] [place] [address] Jan, [facility] [facility] [address] [id number] [place] [address]- 2[address] Jan, [facility] [place] [facility] [address] [id number] [place] [address]- [address] Jan, [facility] [facility] [address] [facility] [id number] [place] [address]- 7870 Jan, [facility] [address] [id number] [place] [address]- 2482 Jan, [facility] [address] [facility] [id number] [place] [address] 16 Jan, 2012 [facility] [address] [id number] [place] [address] 18[address] Jan, [facility] [address] [facility] [id number] [place] [address] 8[address] Jan, [facility] [facility] [address] [facility] [id number] [place] [address] 54[address] Jan, [facility] [place] [facility] [address] [id number] [place] [address] 2546 26 Sep, 2011 [facility] [facility] [address] [id number] [place] [address] 2546 26 Sep, 2011 [facility] [address] [id number] [place] [address] 2546 24 Sep, 2011 [facility] [place] [facility] [address] [id number] [place] [address] 2546 23 Sep, 2011 [facility] [address] [id number] [place] [address] 2546 22 Sep, 2011 [facility] [address] [id number] [place] [address] 2546 21 Sep, 2011 [facility] [facility] [address] [id number] [place] [address] 2543 20 Sep, 2011 [facility] [facility] [address] [id number] [place] [address] 2549 20 Sep, 2011 [facility] [place] [facility] [address] [id number] [place] [address] 2545 07 Sep, 2011 [facility] [address] [id number] [place] [address] 2546 06 Sep, 2011 [facility] [address] [id number] [place] [address] 2545 06 Sep, 2011 [facility] [address] [id number] [place] [address] 2546 05 Sep, 2011 [facility] [address] [id number] [place] [address] 2548 23 Nov, 2011 [facility] [address] [id number] [place] [address] 2546 17 Nov, 2011 [facility] [address] [id number] [place] [address]- [address]46 13 Nov, 2011 [facility] [address] [id number] [place] [address] 1389 Nov, [facility] [address] [id number] [place] [address] 7110 Nov, [facility] [address] [id number] [place] [address]- 3774 Nov, [facility] [address] [id number] [place] [address]- 4246 Nov, [facility] [address] [id number] [place] [address]- 1204 Nov, [facility] [address] [id number] [place] [address]- 0338 Oct, [facility] [facility] [address] [id number] [place] [address]- 2244 Oct, [facility] [facility] [address] [id number] [place] [address] 3415 Oct, [facility] [address] [id number] [place] [address]- 5446 Oct, [facility] [facility] [address] [id number] [place] [address]- 6553 Oct, [facility] [address] [id number] [place] [address] 1863 Oct, [facility] [address] [id number] [place] [address]- 3991 Oct, [facility] [facility] [address] [id number] [place] [address]- 9692 Sep, [facility] [address] [id number] [place] [address]- 3645 Sep, [facility] [address] [id number] [place] [address] 4956 August, [facility] [address] [id number] [place] [address]- 5978 August, [facility] [address] [id number] [place] [address]- 0171 August, [facility] [address] [id number] [place] [address]- 9238 August, [facility] [address] [id number] [place] [address]- 3142 Jul, [facility] [address] [id number] [place] [address]- 0296 Jul, [facility] [address] [id number] [place] [address]- 4420 Jul, [facility] [address] [id number] [place] [address]- 0479 Jul, [facility] [address] [id number] [place] [address]- 9448 Jul, [facility] [address] [id number] [place] [address]- 1743 Jul, [facility] [address] [id number] [place] [address] 1952 Jul, [facility] [address] [id number] [place] [address]- 3365 Jul, [facility] [address] [id number] [place] [address]- 1352 Jul, [facility] [address] [id number] [place] [address]- 6161 23 Jun, 2011 [facility] [address] [id number] [place] [address]- 4578 19 Jun, 2011 [facility] [address] [id number] [place] [address]- 7533 15 Jun, 2011 [facility] [address] [id number] [place] [address]- 0125 14 Jun, 2011 [facility] [address] [id number] [place] [address]- 9658 12 Jun, 2011 [facility] [address] [id number] [place] [address]- 7741 Jun, [facility] [address] [id number] [place] [address]- 3076 Jun, [facility] [address] [id number] [place] [address]- 2496 May, [facility] [address] [id number] [place] [address]- 0406 May, [facility] [address] [id number] [place] [address]- 5660 May, [facility] [address] [id number] [place] [address]- 5696 May, [facility] [address] [id number] [place] [address]- 5977 May, [facility] [address] [id number] [place] [address]- 4759 Apr, [facility] [address] [id number] [place] [address]- 6472 Apr, [facility] [address] [id number] [place] [address]- 7086 Apr, [facility] [address] [id number] [place] [address]- 2408 Apr, [facility] [address] [id number] [place] [address]- 9945 Apr, [facility] [address] [id number] [place] [address]- 4559 Mar, [facility] [address] [id number] [place] [address]- 4866 Mar, [facility] [address] [id number] [place] [address]- 7867 Mar, [facility] [address] [id number] [place] [address]- 8146 Mar, [facility] [address] [id number] [place] [address]- 6448 Mar, [facility] [address] [id number] [place] [address]- 1758 Mar, [facility] [address] [id number] [place] [address]- 5266 Mar, [facility] [address] [id number] [place] [address]- 5563 Feb, [facility] [address] [id number] [place] [address]- 0529 Feb, [facility] [address] [id number] [place] [address]- 6471 Feb, [facility] [address] [facility] [id number] [place] [address]- 6351 Feb, [facility] [address] [id number] [place] [address]- 7225 Jan, [facility] [address] [id number] [place] [address]- 2670 Jan, [facility] [address] [facility] [id number] [place] [address]- 7057 Jan, [facility] [address] [id number] [place] [address]- 1283 Jan, [facility] [address] [id number] [place] [address]- 4587 Nov, [facility] [address] [id number] [place] [address]107 Mar, [facility] [address] [id number] [place] [address]- 2170 Mar, [facility] [address] [facility] [id number] [place] [address]- 0028 Mar, [facility] [address] [id number] [address]- 2546 Mar, [facility] [address] [id number] [address]- 2546 Mar, [facility] [address] [id number] [place] [address]- 2546 Mar, [facility] [id number] [address]- 2546 Feb, [facility] [address] [id number] [place] [address]- 2546 Feb, [facility] [id number] [address]- 2076 Jan, [facility] [id number] [address]- 9426 Jan, [facility] [id number] [address]- 2546 Jan, IMMUNIZATIONS No Known Immunizations SOCIAL HISTORY Never Assessed REASON FOR VISIT Lyrica request PLAN OF CARE VITAL SIGNS MEDICATIONS Medication [...] 2020 & 2007 Surgical History Bladder surgery [facility] 03/2016 Surgical History Neurotransmitter placed 10/2017 Hospitalization History Surgeries Only Hospitalization History 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
--- OUTSIDE RECORDS SUMMARY | 2018-05-29 07:42 | XMS REPORT ---
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 [employer] Name Role Phone ZHANE BOSCH Unavailable PROBLEMS Type Condition ICD9-CM Code XOA42-YE Code Onset Dates Condition Status SNOMED Code Problem Low back pain M54.5 Active 963783965 Problem Abnormal chest CT R93.8 Active 870748033 Problem Dysthymic disorder F34.1 Active 98543385 Problem Generalized anxiety disorder F41.1 Active 14471821 Problem Coronary artery disease involving ekuk coronary artery of ekuk heart, angina presence unspecified I25.10 Active 2451797570783 Problem Restless leg G25.81 Active 59795883 Problem Hypothyroid E03.9 Active 90412704 Problem Insomnia G47.00 Active 691404565 Problem Asthma J45.909 Active 728636442 Problem Chronic kidney disease, unspecified N18.9 Active 081559462 Problem Palpitations R00.2 Active 84657822 Problem Anemia in chronic kidney disease D63.1 Active 643261274633340 Problem Depressed F32.9 Active 00519834 Problem Bipolar disorder, current episode manic without psychotic features F31.10 Active 091588740 Problem Primary osteoarthritis of left knee M17.12 Active 545806739 Problem Degenerative tear of medial meniscus of left knee M23.204 Active 699304426 Problem Chronic pain syndrome G89.4 Active 701340888 Problem Restless leg syndrome G25.81 Active 71519479 Problem History of colon polyps Z86.010 Active 760154478 Problem Functional 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 Active 59859946 Problem Chronic kidney disease, stage 4 (severe) N18.4 Active 813481499 Problem Stage 3 chronic kidney disease N18.3 Active 495514035 Problem Mood disorder F39 Active 29398473 Problem Seasonal allergic rhinitis due to pollen J30.1 Active 40351628 Problem Body mass index (BMI) of 40.0-44.9 in adult Z68.41 Active 956738445 Problem Other seasonal allergic rhinitis J30.2 Active 058846533 Problem Long-term use of high-risk medication Z79.899 Active 338584043 Problem Hypokalemia E87.6 Active 54802944 Problem Asthma with acute exacerbation in adult J45.901 Active 903720844 Problem History of anemia Z86.2 Active 449810367 Problem Vitamin D deficiency E55.9 Active 39727778 Problem Essential (primary) hypertension I10 Active 25366609 Problem Fibromyalgia M79.7 Active 312458964 Problem Mixed stress and urge urinary incontinence N39.46 Active 403127322 ALLERGIES No Known Allergies ENCOUNTERS Encounter Location Date Diagnosis [facility] [address] [address] Jan, [facility] [address] 16[address]- [address]14 Jan, [facility] [address] [address]- [address]95 Dec, Vitamin D deficiency E55.9 [facility] [address] [address] 2540 Dec, Vitamin D deficiency E55.9 [facility] [address] 89339- 2540 24 Dec, 2017 Vitamin D deficiency E55.9 [facility] [address] [address] 2546 12 Dec, 2017 [facility] [address] [address] 2540 Dec, Fibromyalgia M79.7 [facility] [address] [address]- 4568 Nov, [facility] [address] 18458- 2763 Nov, [facility] [address] 8[address]- 6450 Nov, [facility] [address] [address] Nov, Fibromyalgia M79.7 ; Vision changes H53.9 ; Chest wall pain R07.89 and Chronic pain syndrome G89.4 [facility] [id number] [place] [address] 89879- 5628 Nov, [facility] [address] [place] [id number] [place] [address] 87512- 9466 Nov, Rash of hands R21 [facility] [id number] [place] [address] 57049- 7151 Nov, Generalized anxiety disorder F41.1 and Major depressive disorder, recurrent episode with anxious distress F33.9 [place] [id number] [place] [address] 23351- 9851 Nov, Fibromyalgia M79.7 [place] [place] [address] [id number] [place] [address] 51561- 1273 Nov, Complicated UTI (urinary tract infection) N39.0 [facility] [id number] [place] [address] 86776- 5649 Oct, [place] [id number] [place] [address] 94303- 3728 Oct, Generalized anxiety disorder F41.1 and Major depressive disorder, recurrent episode with anxious distress F33.9 [place] [address] [place] [address] 64873- 6472 Oct, [facility] [id number] [place] [address] 31948- 1101 Oct, Fibromyalgia M79.7 [facility] [id number] [place] [address] 18089- 4078 Sep, Restless leg syndrome G25.81 and Restless leg G25.81 [facility] [address] [address] 5[address] Sep, [facility] [id number] [place] [address] 04676- 8599 Sep, Seasonal allergic rhinitis due to pollen J30.1 ; Screening for breast cancer Z12.31 ; Chest pain at rest R07.9 ; Restless leg syndrome G25.81 ; Essential (primary) hypertension I10 and Depressed F32.9 [place] [address] 58[address]- 8161 August, Fibromyalgia M79.7 [place] [address] 98601- 6783 August, [place] [address] 26148- 8111 August, [place] [address] 05001- [address] August, [address] R93.8 [place] [address] 04266- 7843 August, Generalized anxiety disorder F41.1 and Major depressive disorder, recurrent episode with anxious distress F33.9 [place] [address] 88115- [address] August, [address] R93.8 [place] [address] 89160- 5781 Jul, [place] [address] 49559- 8479 Jul, Chronic kidney disease, stage 4 (severe) N18.4 [place] [id number] [place] [address] 68400- 9271 Jul, [place] [address] 91927- 6667 Jul, Restless leg G25.81 ; Mixed stress and urge urinary incontinence N39.46 and Fibromyalgia M79.7 [place] [address] 50645- 9269 Jul, Chronic kidney disease, stage 4 (severe) N18.4 [facility] [id number] [place] [address] 42189- 7394 Jun, Orthostatic hypotension I95.1 ; Chronic kidney disease, stage 4 (severe) N18.4 ; Chest wall discomfort R07.89 and Body mass index (BMI) of 40.0-44.9 in adult Z68.41 [facility] [id number] [place] [address] 58849- 3636 Jun, [facility] [id number] [place] [address] 10045- 3780 Jun, Orthostatic hypotension I95.1 [place] [id number] [place] [address] 05726- 0574 Jun, [facility] [id number] [place] [address] 01938 -0139 Jun, Orthostatic hypotension I95.1 ; Dysuria R30.0 and Acute cystitis without hematuria N30.00 [facility] [id number] [place] [address] 89126- 2366 Jun, [place] [id number] [place] [address] 26307- 0378 Jun, Chronic kidney disease, stage 4 (severe) N18.4 [place] [id number] [place] [address] 69978- 2857 Jun, Fibromyalgia M79.7 [facility] [id number] [place] [address] 87615- 0893 Jun, [place] [id number] [place] [address] 80532- 6535 Jun, [facility] [id number] [place] [address] 12220- [address] May, [address] R93.8 and Stage 3 chronic kidney disease N18.3 [place] [address] [place] [address]- 0713 May, Chronic kidney disease, stage 4 (severe) N18.4 [facility] [id number] [place] [address] 52400- 1426 May, Chronic kidney disease, stage 4 (severe) N18.4 [facility] [id number] [place] [address] 50099- [address] May, [address] R93.8 [facility] [id number] [place] [address] 52781- 2428 May, [place] [address] 32642- 3080 May, [place] [id number] [place] [address] 08442- 6624 May, Generalized anxiety disorder F41.1 and Major depressive disorder, recurrent episode with anxious distress F33.9 [place] [id number] [place] [address] 84889- 6391 May, Mood disorder F39 [place] [id number] [place] [address] 90581- 4451 Apr, [place] [id number] [place] [address] 38667- 3445 Apr, Infected skin lesion L08.9 and Muscle strain of right shoulder region, initial encounter S46.911A [facility] [id number] [place] [address] 95620- 0210 Apr, Generalized anxiety disorder F41.1 and Major depressive disorder, recurrent episode with anxious distress F33.9 [place] [id number] [place] [address] 19846- 9476 Apr, [place] [id number] [place] [address] 48840- 3917 Apr, Recent urinary tract infection Z87.440 and Hypothyroid E03.9 [facility] [address] [address]- 0314 Apr, Generalized anxiety disorder F41.1 and Major depressive disorder, recurrent episode with anxious distress F33.9 [place] [address] [place] [address] 12188- 3508 Apr, Recent urinary tract infection Z87.440 [place] [id number] [place] [address] 53325- 6049 Mar, [facility] [id number] [place] [address] 96302 -8251 Mar, Dysuria R30.0 ; Acute cystitis without hematuria N30.00 and BMI 40.0-44.9, adult Z68.41 [place] [id number] [place] [address] 88999- 5981 Mar, [place] [id number] [place] [address] 72026- 2855 Mar, [place] [id number] [place] [address] 41112- 8433 Mar, Generalized anxiety disorder F41.1 and Major depressive disorder, recurrent episode with anxious distress F33.9 [place] [address] [address]- 2481 Feb, Conjunctivitis, bacterial H10.9 [place] [id number] [place] [address] 71356- 8324 Feb, [facility] [place] [id number] [place] [address] 52569 -0970 Feb, Conjunctivitis, bacterial H10.9 [place] [id number] [place] [address] 71870- 5843 15 Feb, 2017 [facility] [place] [id number] [place] [address] 69932 -8055 10 Feb, 2017 Dysuria R30.0 ; Acute cystitis N30.00 and BMI 40.0-44.9, adult Z68.41 [place] [id number] [place] [address] 19940- 5926 Feb, [place] [address] 18395- 5212 Feb, Generalized anxiety disorder F41.1 and Major depressive disorder, recurrent episode with anxious distress F33.9 [place] [address] 20708- 2761 Feb, Mood disorder F39 and BMI 40.0-44.9, adult Z68.41 [place] [address] 89771- 2829 Jan, [place] [address] 07805- 0817 Jan, [place] [address] 22494- 8641 Jan, Hypothyroid E03.9 [place] [id number] [place] [address] 72902- 6507 Jan, [place] [address] 96946- 6102 Jan, Chronic kidney disease, unspecified N18.9 ; Hypokalemia E87.6 ; Essential (primary) hypertension I10 ; Fibromyalgia M79.7 ; Coronary artery disease involving ek[place] coronary artery of ek[place] heart, angina presence unspecified I25.10 ; Hypothyroid E03.9 and Encounter for immunization Z23 [place] [id number] [place] [address] 67247- 8700 Jan, Hypothyroid E03.9 [place] [address] 12905- 2433 Jan, [place] [id number] [place] [address] 94667- 7303 Dec, Vitamin D deficiency E55.9 [place] [address] 52593- 9760 28 Dec, 2016 Primary osteoarthritis of left knee M17.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 [facility] [id number] [place] [address] 34429 2546 19 Dec, 2016 Fibromyalgia M79.7 [facility] [id number] [place] [address] 89679 2546 18 Dec, 2016 Mood disorder F39 [facility] [id number] [place] [address] 22505- 5150 13 Dec, 2016 [facility] [id number] [place] [address] 22996- 2655 13 Dec, 2016 Generalized anxiety disorder F41.1 and Major depressive disorder, recurrent episode with anxious distress F33.9 [place] [id number] [place] [address] 18588- 5983 11 Dec, 2016 [place] [id number] [place] [address] 72289- 3251 08 Dec, 2016 Streptococcal meningitis G00.2 [facility] [id number] [place] [address] 00629- 9430 07 Dec, 2016 Streptococcal meningitis G00.2 [facility] [id number] [place] [address] 44890- 2540 07 Dec, 2016 [facility] [id number] [place] [address] 32767- 7063 06 Dec, 2016 Streptococcal meningitis G00.2 [facility] [id number] [place] [address] 38417 2542 06 Dec, 2016 [facility] [id number] [place] [address] 03635- 2548 06 Dec, 2016 Major depressive disorder, recurrent episode with anxious distress F33.9 [facility] [id number] [place] [address] 73511- 9042 Nov, Fever, unspecified fever cause R50.9 [facility] [address] [address]- 1747 Nov, [facility] [id number] [place] [address] 50847- 6414 Nov, Hypothyroid E03.9 [facility] [id number] [place] [address] 44803- 9844 Nov, Generalized anxiety disorder F41.1 and Major depressive disorder, recurrent episode with anxious distress F33.9 [facility] [id number] [place] [address] 59235- 9901 Nov, [facility] [address] [id number] Oct, Dental examination Z01.20 [facility] [id number] [place] [address] 14256- 0246 Oct, Generalized anxiety disorder F41.1 and Major depressive disorder, recurrent episode with anxious distress F33.9 [facility] [id number] [place] [address] 21336- 0703 Oct, Chronic kidney disease, stage 4 (severe) N18.4 [facility] [id number] [place] [address] 88819- 4705 Oct, [facility] [id number] [place] [address] 13564- 0321 Oct, Fibromyalgia M79.7 [facility] [id number] [place] [address] 67328- 3011 Oct, [facility] [id number] [place] [address] 52473- 8989 Oct, Generalized anxiety disorder F41.1 ; Major depressive disorder, recurrent episode with anxious distress F33.9 and Bipolar disorder, current episode manic without psychotic features F31.10 [facility] [address] [address]- 4345 Sep, [facility] [id number] [address]- 3456 Sep, [place] [id number] [place] [address] 41893- 0142 Sep, Vitamin D deficiency E55.9 [place] [id number] [place] [address] 57834- 7185 14 Sep, 2016 Vitamin D deficiency E55.9 [place] [id number] [place] [address] 31907- 4182 Sep, [place] [id number] [place] [address] 66280- 2325 Sep, Chronic kidney disease, stage 4 (severe) N18.4 ; Hypothyroid E03.9 ; Restless leg G25.81 ; Fibromyalgia M79.7 ; Essential ( primary) hypertension I10 ; Vitamin D deficiency E55.9 ; Dyspepsia R10.13 ; Anemia in chronic kidney disease D63.1 ; Chronic kidney disease, unspecified N18.9 ; Coronary artery disease involving ek[place] coronary artery of ek[place] heart , angina presence unspecified I25.10 ; Screening breast examination Z12.39 and Low back pain M54.5 [place] [id number] [place] [address] 51975- 7842 August, Generalized anxiety disorder F41.1 and Major depressive disorder, recurrent episode with anxious distress F33.9 [place] [id number] [place] [address] 42174- 1908 August, Generalized anxiety disorder F41.1 and Major depressive disorder, recurrent episode with anxious distress F33.9 [place] [id number] [place] [address] 24449- 9014 August, Fibromyalgia M79.7 [place] [id number] [place] [address] 75339- 2980 Jul, Generalized anxiety disorder F41.1 and Major depressive disorder, recurrent episode with anxious distress F33.9 [place] [id number] [place] [address] 17555- 7524 Jul, Fibromyalgia M79.7 [place] [address] [place] [address] 43244- 0220 Jul, Generalized anxiety disorder F41.1 [place] [id number] [place] [address] 48103- 1220 May, [place] [id number] [place] [address] 90786- 2314 May, Hypothyroid E03.9 [place] [address] [id number] [place] [address] 43835- 3076 May, Chronic kidney disease, stage 4 (severe) N18.4 ; Hypothyroid E03.9 ; Restless leg G25.81 ; Fibromyalgia M79.7 ; Essential ( primary) hypertension I10 ; Vitamin D deficiency E55.9 ; Dyspepsia R10.13 ; Acute non-recurrent maxillary sinusitis J01.00 ; Anemia in chronic kidney disease D63.1 ; Chronic kidney disease, unspecified N18.9 and Coronary artery disease involving ek[place] coronary artery of ek[place] heart, angina presence unspecified I25.10 [place] [id number] [place] [address] 18309- 9390 May, Vitamin D deficiency, unspecified E55.9 [place] [id number] [place] [address] 62528- 3558 May, Generalized anxiety disorder F41.1 and Major depressive disorder, recurrent episode with anxious distress F33.9 [place] [id number] [place] [address] 81874- 8647 Apr, Pain in right knee M25.561 and Pain in left knee M25.562 [place] [id number] [place] [address] 74581- 4879 Apr, [place] [id number] [place] [address] 94990- 0925 Apr, [place] [id number] [place] [address] 04895- 5862 Apr, [facility] [id number] [place] [address] 76839- 6203 Mar, Generalized anxiety disorder F41.1 and Major depressive disorder, recurrent episode with anxious distress F33.9 [facility] [id number] [place] [address] 81174- 1959 Mar, Generalized anxiety disorder F41.1 and Major depressive disorder, recurrent episode with anxious distress F33.9 [place] [id number] [place] [address] 14461- 4382 Mar, [place] [id number] [place] [address] 68002- 1681 Mar, [place] [id number] [place] [address] 53753- 8699 Mar, [place] [address] [place] [id number] [place] [address] 77800- 0917 Mar, Asthma J45.909 and Fibromyalgia M79.7 [place] [address] [id number] [place] [address] 10268- 2393 Mar, Chronic kidney disease, stage 4 (severe) N18.4 ; Vitamin D deficiency E55.9 and Essential (primary) hypertension I10 [place] [address] [place] [id number] [place] [address] 39351- 2696 Feb, [place] [address] [place] [id number] [place] [address] 03367- 1715 Feb, Dysuria R30.0 ; Mixed stress and urge urinary incontinence N39.46 ; Fibromyalgia M79.7 and Chronic kidney disease, stage IV (severe) N18.4 [place] [address] [place] [id number] [place] [address] 57011- 9237 Feb, Chronic kidney disease, stage 4 (severe) N18.4 [place] [address] [id number] [place] [address] 93948- 5051 Feb, Chronic kidney disease, stage 4 (severe) N18.4 [facility] [address] [id number] [place] [address] 17668- 3124 Feb, [facility] [address] [place] [id number] [place] [address] 65416- 4414 Feb, Vitamin D deficiency, unspecified E55.9 [facility] [address] [place] [id number] [place] [address] 71419- 9211 Jan, [facility] [address] 89710- 8705 Jan, [facility] [address] [place] [id number] [place] [address] 48720- 0436 Dec, [place] [address] [place] [id number] [place] [address] 85467- 0255 Dec, Chronic kidney disease, stage 4 (severe) N18.4 [facility] [address] [place] [id number] [place] [address] 60438- 1468 Dec, Dysthymic disorder F34.1 and Generalized anxiety disorder F41.1 [place] [address] [place] [id number] [place] [address] 87552- 1804 Dec, [facility] [address] [place] [id number] [place] [address] 33527- 4248 Dec, [place] [address] [place] [id number] [place] [address] 10145- 7085 Dec, Dysthymic disorder F34.1 and Generalized anxiety disorder F41.1 [place] [address] [place] [id number] [place] [address] 42085- 4324 Dec, Dysuria R30.0 ; Chronic kidney disease, stage 4 (severe) N18.4 ; Hypertension I10 ; Dyspepsia R10.13 ; Yeast dermatitis B37.2 ; Palpitations R00.2 ; Hypothyroid E03.9 ; Functional 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 and Other seasonal allergic rhinitis J30.2 [facility] [id number] [place] [phone] Dec, [facility] [id number] [place] [phone] Nov, Dysuria R30.0 and Stress incontinence N39.3 [facility] [id number] [place] [phone] Nov, [facility] [id number] [place] [phone] Nov, [facility] [id number] [place] [phone] Nov, Osteoarthritis of knees, bilateral M17.0 [place] [id number] [place] [phone] 9455 Nov, Dysthymic disorder F34.1 and Generalized anxiety disorder F41.1 [facility] [id number] [place] [address] 41458- 5459 Nov, [facility] [id number] [place] [address] 22500- 1639 Nov, [facility] [id number] [place] [address] 84309- 9715 Nov, Urgency of urination R39.15 [facility] [id number] [place] [address] 60371- 9196 Nov, [facility] [id number] [place] [address] 25786- 7923 Nov, Chronic kidney disease, stage 4 (severe) N18.4 [facility] [id number] [place] [address] 03237- 6869 Oct, Hypertension I10 ; Coronary artery disease involving ekuk coronary artery of ekuk heart, angina presence unspecified I25.10 ; Palpitations R00.2 ; Hypothyroid E03.9 ; Right foot pain M79.671 ; Functional 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 and Other seasonal allergic rhinitis J30.2 [facility] [address] [place] [address]- 0359 Oct, Dysthymic disorder F34.1 and Generalized anxiety disorder F41.1 [facility] [address] [address] 3782 Sep, [facility] [address] [address] 7996 Sep, [facility] [id number] [place] [address] 12057- 7358 Sep, [facility] [id number] [place] [address] 45840- 4814 Sep, [facility] [id number] [place] [address] 43969- 4017 Sep, [facility] [id number] [place] [address] 32133- 7280 Sep, Dysthymic disorder F34.1 and Generalized anxiety disorder F41.1 [facility] [id number] [place] [address] 00669- 3767 Sep, Asthma with acute exacerbation in adult J45.901 ; Dysuria R30.0 ; Chronic kidney disease, stage 4 (severe) N18.4 and History of anemia Z86.2 [facility] [address] [address] 0932 Sep, Generalized anxiety disorder F41.1 and Dysthymic disorder F34.1 [facility] [address] [address] 8721 August, Screening breast examination Z12.39 and Acute recurrent maxillary sinusitis J01.01 [facility] [id number] [place] [address] 40945- 5034 August, Osteoarthritis of knees, bilateral M17.0 [facility] [address] [address]- 9628 August, Chronic kidney disease, stage 4 (severe) N18.4 ; Acute non- recurrent maxillary sinusitis J01.00 ; Urinary problem R39.89 ; Bowel habit changes R19.4 ; Functional 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 and History of colon polyps Z86.010 [facility] [id number] [place] [address] 86738- 0758 29 Jul, 2015 Dysthymic disorder F34.1 and Generalized anxiety disorder F41.1 [facility] [id number] [place] [address] 49685- 8026 Jul, [facility] [id number] [place] [address] 02703- 7786 18 Jul, 2015 Dysthymic disorder F34.1 ; Generalized anxiety disorder F41.1 and MCC use of drug Z79.899 [facility] [id number] [place] [address] 61371- 2493 Jul, [facility] [address] 95689- 4059 16 Jun, 2015 [facility] [id number] [place] [address] 13778- 9554 Jun, [facility] [id number] [place] [address] 02487- 5515 May, [facility] [id number] [place] [address] 26663- 5112 May, Dysthymic disorder F34.1 and Generalized anxiety disorder F41.1 [facility] [id number] [place] [address] 19566- 9767 Apr, Kidney disease N28.9 [facility] [id number] [place] [address] 26011- 9881 Apr, Generalized anxiety disorder F41.1 and Dysthymic disorder F34.1 [facility] [id number] [place] [address] 30088- 9511 Apr, Chronic kidney disease, stage 4 (severe) N18.4 [facility] [address] [id number] [place] [address] 30066- 9663 Apr, Generalized anxiety disorder F41.1 ; Major depression, recurrent F33.9 and Sleep disturbance G47.9 [facility] [id number] [place] [address] 00856- 7704 Mar, Generalized anxiety disorder F41.1 and Dysthymic disorder F34.1 [facility] [address] 20577- 9953 Mar, Generalized anxiety disorder F41.1 ; Dysthymic disorder F34.1 and Insomnia G47.00 [facility] [address] 64056- 5308 Mar, [facility] [address] 02957- 3302 Mar, [facility] [address] 14784- 8758 Mar, Osteoarthritis of knees, bilateral M17.0 [facility] [address] 77607- 7746 Mar, Hypertension I10 ; Hypothyroid E03.9 ; Dysthymic disorder F34.1 ; Chronic kidney disease, stage 4 (severe) N18.4 and Nausea & vomiting R11.2 [facility] [id number] [place] [address] 39965- 4343 Mar, Generalized anxiety disorder F41.1 ; Dysthymic disorder F34.1 and Insomnia G47.00 [facility] [id number] [place] [address] 99720- 3675 Mar, Dehydration E86.0 ; Chronic kidney disease, stage 4 (severe ) N18.4 and Nausea & vomiting R11.2 [facility] [id number] [place] [address] 05500 -0857 08 Mar, 2015 Gastroenteritis K52.9 [facility] [address] 15217- 8914 Mar, [place] [id number] [place] [address] 34439- 2411 Mar, [address] 02452- 4777 Feb, Dysthymic disorder F34.1 and Generalized anxiety disorder F41.[address] 90661- 9486 Jan, UTI (urinary tract infection) N39.0 ; Asthma J45.909 ; Coronary artery disease involving ekuk coronary artery of ekuk heart, angina presence unspecified I25.10 ; Hypertension I10 ; Hypothyroid E03.9 ; Vitamin D deficiency E55.9 ; Insomnia G47.00 ; Palpitations R00.2 ; Depressed F32.9 ; Restless leg G25.81 and Anxiety F41.[address] 84167- 4055 Jan, Dysthymic disorder F34.1 and Generalized anxiety disorder F41.1 [place] [id number] [place] [address] 79570- 4933 Jan, [place] [id number] [place] [address] 12040- 5805 Dec, [place] [id number] [place] [address] 43882- 9759 Dec, Alkalosis 276.3 ; Chronic kidney disease, 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.4 ; Hyperpotassemia 276.7 ; Secondary hyperparathyroidism, renal 588.81 ; Proteinuria 791.0 ; Unspecified vitamin D deficiency 268.9 ; Anemia in chronic kidney disease 285.21 ; Other and unspecified hyperlipidemia 272.4 ; Hypertension, essential, benign 401.1 and Chronic kidney disease (CKD), stage III (moderate) 585.3 [place] [id number] [place] [address] 31409- 3319 16 Dec, [address] 86428- 7534 Dec, Depressive disorder, not elsewhere classified 311 and Generalized anxiety disorder 300.02 [facility] [id number] [place] [address] 43664- 6223 Dec, [facility] [id number] [place] [address] 68841- 9273 Dec, [facility] [id number] [place] [address] 86098- 5375 Nov, Depressive disorder, not elsewhere classified 311 and Generalized anxiety disorder 300.02 [facility] [id number] [place] [address] 99990- 2149 Nov, Arthritis of both knees 716.96 [facility] [id number] [place] [address] 76009- 7044 Nov, PAF (paroxysmal atrial fibrillation) 427.31 ; CAD (coronary artery disease) 414.00 ; Chest pain 786.50 and Chronic kidney disease (CKD) stage G4/A1, severely decreased glomerular filtration rate (GFR) between 15-29 mL/min/1.73 square meter and albuminuria creatinine ratio less than 30 mg/g 585.4 [place] [id number] [place] [address] 11333- 0028 Oct, Coronary atherosclerosis of unspecified type of vessel, ekuk or graft 414.00 ; Chronic kidney disease, 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.4 ; Hypertension 401.9 and Edema 782.3 [place] [id number] [place] [address] 50285- 3484 Oct, Depressive disorder, not elsewhere classified 311 and Generalized anxiety disorder 300.02 [facility] [id number] [place] [address] 25214- 2522 Oct, Depressive disorder, not elsewhere classified 311 and Generalized anxiety disorder 300.02 [facility] [id number] [place] [address] 15710- 0894 Oct, [facility] [id number] [place] [address] 81476- 4414 Oct, [facility] [id number] [place] [address] 14070- 2800 Sep, [facility] [address] 25835- 2535 Sep, Chronic kidney disease, 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.[address] 80998- 3720 Sep, [facility] [address] 15852- 8543 Sep, Coronary atherosclerosis of unspecified type of vessel, ekuk or graft 414.00 ; Hypertension 401.9 ; Edema 782.3 and Hypothyroidism 244.[address] 50322- 9014 Sep, Coronary atherosclerosis of unspecified type of vessel, ekuk or graft 414.00 ; Hypertension 401.9 ; Fibromyalgia 729.1 ; Edema 782.3 ; Hypothyroidism 244.9 and Anemia 285.[address] 96861- 7964 Sep, Anxiety disorder, unspecified 300.00 and Depressive disorder , not elsewhere classified 311 [place] [id number] [place] [address] 88579- 4476 Sep, [address] 29015- 4191 August, Generalized anxiety disorder 300.[address] 35051- 5572 August, Closed fracture of lateral malleolus 824.[address] 35001- 6116 Jul, [address] 01160- 5626 Jul, [address] 34551- 4530 Jun, [facility] [place] [facility] [address] [id number] [place] [address]- 6789 Jun, [facility] [place] [facility] [address] [facility] [id number] [place] [address]- 5887 Jun, [facility] [place] [facility] [address] [facility] [id number] [place] [address]- 0669 Jun, [facility] [place] [facility] [address] [id number] [place] [address]- 5958 Jun, [facility] [place] [facility] [address] [id number] [place] [address]- 7316 Jun, [facility] [place] [facility] [address] [facility] [id number] [place] [address]- 2292 May, 2014 [facility] [place] [facility] [address] [facility] [id number] [place] [address]- 3588 19 May, 2014 [facility] [place] [facility] [address] [facility] [id number] [place] [address]- 5567 18 May, 2014 [facility] [place] [facility] [address] [facility] [id number] [place] [address]- 4595 18 May, 2014 [facility] [place] [facility] [address] [facility] [id number] [place] [address]- 2364 16 May, 2014 [facility] [place] [facility] [address] [facility] [id number] [place] [address]- 4772 16 May, 2014 [facility] [place] [facility] [address] [facility] [id number] [address]- 8983 13 May, 2014 [facility] [place] [facility] [address] [facility] [id number] [place] [address]- 8143 13 May, 2014 [facility] [place] [facility] [address] [facility] [id number] [address]- 1506 10 May, 2014 [facility] [place] [facility] [address] [facility] [id number] [address]- 1289 10 May, 2014 [facility] [place] [facility] [address] [id number] [place] [address]- 3662 Apr, [facility] [place] [facility] [address] [id number] [place] [address]- 9181 Apr, [facility] [place] [facility] [address] [id number] [place] [address]- 9374 Mar, [facility] [place] [facility] [address] [id number] [place] [address]- 4995 Mar, [facility] [place] [facility] [address] [id number] [place] [address]- 0642 Mar, [facility] [place] [facility] [address] [id number] [place] [address]- 1860 Mar, [facility] [place] [facility] [address] [id number] [place] [address]- 1899 Mar, [facility] [place] [facility] [address] [id number] [place] [address]- 0563 Mar, [facility] [place] [facility] [address] [id number] [place] [address]- 3286 Mar, [facility] [place] [facility] [address] [id number] [place] [address]- 2108 Feb, [facility] [place] [facility] [address] [id number] [place] [address]- 1473 Feb, [facility] [place] [facility] [address] [id number] [place] [address]- 7974 Feb, [facility] [place] [facility] [address] [id number] [place] [address]- 5170 Jan, [facility] [place] [facility] [address] [id number] [place] [address]- 4049 Jan, [facility] [place] [facility] [address] [id number] [place] [address]- 5259 Jan, [facility] [place] [facility] [address] [id number] [place] [address]- 4703 Jan, [facility] [place] [facility] [address] [id number] [place] [address]- 9289 Jan, [facility] [place] [facility] [address] [id number] [place] 5154 Jan, [facility] [place] [facility] [address] [id number] [place] [address]- 3002 Jan, [facility] [place] [facility] [address] [id number] [place] [address]- 7792 Jan, [facility] [place] [facility] [address] [id number] [place] [address]- 6531 Jan, [facility] [place] [facility] [address] [id number] [place] [address]- 2431 Jan, [facility] [place] [facility] [address] [id number] [place] [address]- 0821 Nov, [facility] [place] [facility] [address] [id number] [place] [address]- 2787 Nov, [facility] [place] [facility] [address] [id number] [place] [address]- 8115 Nov, [facility] [place] [facility] [address] [id number] [place] [address]- 7366 Oct, [facility] [place] [facility] [address] [id number] [place] [address]- 1422 Oct, [facility] [place] [facility] [address] [id number] [place] [address]- 9124 Oct, [facility] [place] [facility] [address] [id number] [place] [address]- 0114 Oct, [facility] [place] [facility] [address] [id number] [place] [address]- 4144 Oct, [facility] [place] [facility] [address] [id number] [place] [address]- 3598 Oct, [facility] [place] [facility] [address] [id number] [place] [address]- 7509 Oct, [facility] [place] [facility] [address] [id number] [place] [address]- 0149 Oct, [facility] [place] [facility] [address] [id number] [place] [address]- 9512 Oct, [facility] [place] [facility] [address] [id number] [place] [address]- 7364 Sep, [facility] [place] [facility] [address] [id number] [place] [address]- 2245 Sep, [facility] [place] [facility] [address] [id number] [place] [address]- 2452 Sep, [facility] [place] [facility] [address] [id number] [place] [address]- 4640 Sep, [facility] [place] [facility] [address] [id number] [place] [address]- 2861 Sep, [facility] [place] [facility] [address] [id number] [place] [address]- 7287 Sep, [facility] [place] [facility] [address] [id number] [place] [address]- 9051 Sep, [facility] [place] [facility] [address] [id number] [place] [address]- 7789 Sep, [facility] [place] [facility] [address] [id number] [place] [address]- 6211 Sep, [facility] [place] [facility] [address] [id number] [place] [address]- 0671 August, [facility] [place] [facility] [address] [id number] [place] [address]- 4883 August, [facility] [place] [facility] [address] [id number] [place] [address]- 3093 August, [facility] [place] [facility] [address] [id number] [place] 1698 August, [facility] [place] [facility] [address] [id number] [place] [address]- 4377 August, [facility] [place] [facility] [address] [id number] [place] [address]- 1235 August, [facility] [place] [facility] [address] [id number] [place] [address]- 6622 Jul, [facility] [place] [facility] [address] [id number] [place] [address]- 8945 Jul, [facility] [place] [facility] [address] [id number] [place] [address]- 1130 Jul, [facility] [place] [facility] [address] [id number] [place] [address]- 7846 Jul, [facility] [place] [facility] [address] [id number] [place] [address]- 8714 Jul, [facility] [place] [facility] [address] [id number] [place] [address]- 0076 Jul, [facility] [place] [facility] [address] [id number] [place] [address]- 2948 Jun, [facility] [place] [facility] [address] [id number] [place] [address]- 6201 Jun, [facility] [place] [facility] [address] [id number] [place] [address]- 4103 May, [facility] [place] [facility] [address] [id number] [place] [address]- 6621 May, [facility] [place] [facility] [address] [id number] [place] [address]- 0741 May, [facility] [place] [facility] [address] [id number] [place] [address]- 5971 May, [facility] [place] [facility] [address] [id number] [place] [address]- 8316 Apr, [facility] [place] [facility] [address] [id number] [place] [address]- 1207 Apr, [facility] [address] [id number] [place] [address]- 7969 18 Mar, 2013 [facility] [place] [facility] [address] [id number] [place] [address]- 5653 18 Mar, 2013 [facility] [address] [id number] [place] 0673 17 Mar, 2013 [facility] [place] [facility] [address] [id number] [place] [address]- 1474 17 Mar, 2013 [facility] [address] [id number] [place] [address]- 8727 Mar, [facility] [place] [facility] [address] [id number] [place] [address]- 1510 Mar, [facility] [place] [facility] [address] [id number] [place] [address]- 7291 Feb, [facility] [place] [facility] [address] [id number] [place] [address]- 4097 Feb, [facility] [place] [facility] [address] [id number] [place] [address]- 1346 14 Feb, 2013 [facility] [place] [facility] [address] [facility] [id number] [place] [address]- 4059 14 Feb, 2013 [facility] [place] [facility] [address] [id number] [place] [address]- 0397 Feb, [facility] [place] [facility] [address] [id number] [place] [address]- 0049 Feb, [facility] [place] [facility] [address] [id number] [place] 0858 24 Jan, 2013 [facility] [place] [facility] [address] [id number] [place] [address]- 8051 24 Jan, 2013 [facility] [place] [facility] [address] [id number] [place] [address]- 4782 Jan, [facility] [place] [facility] [address] [id number] [place] [address]- 5904 Jan, [facility] [place] [facility] [address] [id number] [place] [address]- 6046 Jan, [facility] [place] [facility] [address] [id number] [place] [address]- 7748 Jan, [facility] [place] [facility] [address] [id number] [place] [address]- 3843 Dec, [facility] [place] [facility] [address] [id number] [place] [address]- 1957 Dec, [facility] [place] [facility] [address] [id number] [place] [address]- 1440 Nov, [facility] [place] [facility] [address] [id number] [place] [address]- 0715 Nov, [facility] [place] [facility] [address] [id number] [place] [address]- 5502 Oct, [facility] [place] [facility] [address] [id number] [place] [address]- 8485 Oct, [facility] [place] [facility] [address] [id number] [place] [address]- 1231 Oct, [facility] [place] [facility] [address] [id number] [place] [address]- 9952 Oct, [facility] [place] [facility] [address] [id number] [place] [address]- 3479 Oct, [facility] [place] [facility] [address] [id number] [place] [address]- 7101 Oct, [facility] [place] [facility] [address] [id number] [place] [address]- 3875 Sep, [facility] [place] [facility] [address] [id number] [place] [address] Sep, [facility] [place] [facility] [address] [id number] [place] [address] Sep, [facility] [address] [id number] [place] [address] Sep, [facility] [address] [id number] [place] [address] August, [facility] [address] [id number] [place] [address] August, [facility] [address] [id number] [place] [address] August, [facility] [address] [id number] [place] [address] August, [facility] [address] [id number] [place] [address] August, [facility] [address] [id number] [place] [address] Jul, [facility] [address] [id number] [place] [address] Jul, [facility] [address] [id number] [place] [address] Jul, [facility] [address] [id number] [place] [address] Jul, [facility] [address] [id number] [place] [address] Jul, [facility] [place] [facility] [address] [id number] [place] [address] Jul, [facility] [place] [facility] [address] [id number] [place] [address] Jul, [facility] [place] [facility] [address] [id number] [place] [address] Jul, [facility] [place] [facility] [address] [id number] [place] [address] Jul, [facility] [place] [facility] [address] [id number] [place] [address] Jul, [facility] [address] [id number] [id number] Jun, [facility] [address] [facility] [id number] [place] [address] Jun, [facility] [address] [id number] [place] [address] Jun, [facility] [address] [id number] [place] [address] Jun, [facility] [address] [id number] [place] [address] Jun, [facility] [address] [facility] [id number] [place] [address] May, [facility] [address] [id number] [place] [address] May, [facility] [address] [id number] [place] [address] May, [facility] [address] [id number] [place] [address] Apr, [facility] [address] [id number] [place] [address] Apr, [facility] [address] [id number] [place] [address] Apr, [facility] [address] [id number] [place] [address] Apr, [facility] [address] [id number] [place] [address] Apr, [facility] [address] [facility] [id number] [place] [address] Apr, [facility] [address] [id number] [place] [address] Mar, [facility] [place] [facility] [address] [id number] [place] [address] Mar, [facility] [place] [facility] [address] [id number] [place] [address] Mar, [facility] [place] [facility] [address] [id number] [place] [address] Mar, [facility] [place] [facility] [address] [id number] [place] [address] Feb, [facility] [place] [facility] [address] [id number] [place] [address] Feb, [facility] [place] [facility] [address] [id number] [place] [address] Feb, [facility] [place] [facility] [address] [facility] [id number] [place] [address] Feb, [facility] [place] [facility] [address] [id number], [place] [address] Feb, [facility] [place] [facility] [address] [facility] [id number] [place] [address] Feb, [facility] [place] [facility] [address] [facility] [id number], [place] [address] Feb, [facility] [place] [facility] [address] [facility] [id number], [place] [address] Feb, [facility] [place] [facility] [address] [id number], [place] [address]65 Feb, [facility] [place] [facility] [address] [id number], [place] [address] Feb, [facility] [place] [facility] [address] [id number], [place] [address] Feb, [facility] [place] [facility] [address] [facility] [id number], [place] [address] Feb, [facility] [place] [facility] [address] [id number], [place] [address] Feb, [facility] [place] [facility] [address] [id number] [place] [address] Feb, [facility] [place] [facility] [address] [id number], [place] [address] Feb, [facility] [place] [facility] [address] [facility] [id number] [place] [address] Feb, [facility] [place] [facility] [address] [id number] [place] [address] Jan, [facility] [place] [facility] [address] [id number] [place] [address] 6[address] Jan, [facility] [place] [facility] [address] [id number] [place] [address] Jan, [facility] [place] [facility] [address] [facility] [id number], [place] [address] Jan, [facility] [place] [facility] [address] [facility] [id number], [place] [address] Jan, [facility] [place] [facility] [address] [facility] [id number], [place] [address] Jan, [facility] [place] [facility] [address] [facility] [id number], [place] [address] Jan, [facility] [place] [facility] [address] [facility] [id number], [place] [address] Jan, [facility] [place] [facility] [address] [facility] [id number], [place] [address]85 16 Jan, 2012 [facility] [place] [facility] [address] [facility] [id number], [place] [address] 15 Jan, 2012 [facility] [place] [facility] [address] [facility] [id number], [place] [address] 15 Jan, 2012 [facility] [place] [facility] [address] [facility] [id number][place] [address] Jan, [facility] [place] [facility] [address] [id number] [place] [address] 2546 26 Sep, 2011 [facility] [place] [facility] [address] [id number] [place] [address] 2546 26 Sep, 2011 [facility] [place] [facility] [address] [id number] [place] [address] 2546 24 Sep, 2011 [facility] [place] [facility] [address] [id number] [place] [address] 2546 23 Sep, 2011 [facility] [place] [facility] [address] [id number] [place] [address] 2546 22 Sep, 2011 [facility] [place] [facility] [address] [id number] [place] [address] 2546 21 Sep, 2011 [facility] [place] [facility] [address] [id number] [place] [address] 2546 20 Sep, 2011 [facility] [place] [facility] [address] [id number] [place] [address] 2547 20 Sep, 2011 [facility] [place] [facility] [address] [id number] [place] [address] 2547 07 Sep, 2011 [facility] [place] [facility] [address] [id number] [place] [address] 2546 06 Sep, 2011 [facility] [place] [facility] [address] [id number] [place] [address] 2546 06 Sep, 2011 [facility] [place] [facility] [address] [id number] [place] [address] 2546 05 Sep, 2011 [facility] [place] [facility] [address] [id number] [place] [address] 2543 23 Nov, 2011 [facility] [place] [facility] [address] [id number] [place] [address] 2546 17 Nov, 2011 [facility] [place] [facility] [address] [id number] [place] [address]- 2546 13 Nov, 2011 [facility] [place] [facility] [address] [id number] [place] [address] 2622 Nov, [facility] [place] [facility] [address] [id number] [place] [address]- 6[address] Nov, [facility] [place] [facility] [address] [id number] [place] [address]704 Nov, [facility] [place] [facility] [address] [id number] [place] [address]- 4509 Nov, [facility] [place] [facility] [address] [id number] [place] [address] 9158 Nov, [facility] [place] [facility] [address] [id number] [place] [address]671 Oct, [facility] [place] [facility] [address] [id number] [place] [address] 4978 Oct, [facility] [place] [facility] [address] [id number] [place] [address]- 4052 Oct, [facility] [place] [facility] [address] [id number] [place] [address]- 1088 Oct, [facility] [place] [facility] [address] [id number] [place] [address]- 1248 Oct, [facility] [place] [facility] [address] [id number] [place] [address] 9168 Oct, [facility] [place] [facility] [address] [id number] [place] [address]- 3864 Oct, [facility] [place] [facility] [address] [id number] [place] [address]- 2444 Sep, [facility] [place] [facility] [address] [id number] [place] [address]- [address]276 Sep, [facility] [place] [facility] [address] [id number] [place] [address] 6347 August, [facility] [place] [facility] [address] [id number] [place] [address] 9019 August, [facility] [place] [facility] [address] [id number] [place] [address] 1719 August, [facility] [address] [id number] [place] [address]- 0086 August, [facility] [place] [facility] [address] [id number] [place] [address]- 6785 Jul, [facility] [address] [id number] [place] [address]- 4556 Jul, [facility] [place] [facility] [address] [id number] [place] [address]- 7521 Jul, [facility] [place] [facility] [address] [id number] [place] [address]- 9795 Jul, [facility] [place] [facility] [address] [id number] [place] [address]- 7351 Jul, [facility] [address] [id number] [place] [address]- 8289 Jul, [facility] [place] [facility] [address] [id number] [place] [address]- 1041 Jul, [facility] [place] [facility] [address] [id number] [place] [address]- 0087 Jul, [facility] [place] [facility] [address] [id number] [place] [address]- 8247 Jul, [facility] [place] [facility] [address] [id number] [place] [address]- 3305 23 Jun, 2011 [facility] [place] [facility] [address] [id number] [place] [address]- 5238 19 Jun, 2011 [facility] [place] [facility] [address] [id number] [place] [address]- 4616 15 Jun, 2011 [facility] [place] [facility] [address] [id number] [place] [address]- 6454 14 Jun, 2011 [facility] [place] [facility] [address] [id number] [place] [address]- 4190 12 Jun, 2011 [facility] [place] [facility] [address] [id number] [place] [address]- 0021 Jun, [facility] [place] [facility] [address] [id number] [place] [address]- 5746 Jun, [facility] [place] [facility] [address] [id number] [place] [address]- 4136 May, [facility] [place] [facility] [address] [id number] [place] [address]- 6026 May, [facility] [place] [facility] [address] [id number] [place] [address]- 2933 May, [facility] [place] [facility] [address] [id number] [place] [address]- 2356 May, [facility] [place] [facility] [address] [id number] [place] [address]- 1476 May, [facility] [place] [facility] [address] [id number] [place] [address]- 1636 Apr, [facility] [place] [facility] [address] [id number] [place] [address]- 0800 Apr, [facility] [place] [facility] [address] [id number] [place] [address]- 7530 Apr, [facility] [place] [facility] [address] [id number] [place] [address]- 6247 Apr, [facility] [place] [facility] [address] [id number] [place] [address]- 7388 Apr, [facility] [place] [facility] [address] [id number] [place] [address] 2541 Mar, [facility] [place] [facility] [address] [id number] [place] [address]- 5796 Mar, [facility] [place] [facility] [address] [id number] [place] [address]- 2648 Mar, [facility] [place] [facility] [address] [id number], [place] [address]- [address] Mar, [facility] [place] [facility] [address] [id number] [place] [address] Mar, [facility] [place] [facility] [address] [id number] [place] [address]- 1874 Mar, [facility] [place] [facility] [address] [facility] [id number] [place] [address]- 3626 Mar, [facility] [place] [facility] [address] [id number] [place] [address]- 1242 Feb, [facility] [place] [facility] [address] [id number] [place] [address]- 4225 Feb, [facility] [place] [facility] [address] [id number] [place] [address]- 3595 Feb, [facility] [place] [facility] [address] [facility] [id number] [place] [address]- 8841 Feb, [facility] [place] [facility] [address] [id number] [place] [address]- 5660 Jan, [facility] [place] [facility] [address] [facility] [id number] [place] [address]- 7191 Jan, [facility] [place] [facility] [address] [facility] [id number] [place] [address]- 6503 Jan, [facility] [place] [facility] [address] [id number] [place] [address]- 9272 Jan, [facility] [place] [facility] [address] [id number], [place] [address]- 3107 Nov, [facility] [place] [facility] [address] [id number] [place] [address]- 8629 Mar, [facility] [place] [facility] [address] [id number] [place] [address]- 4673 Mar, [facility] [place] [facility] [address] [facility] [id number] [place] [address]- 2009 Mar, [facility] [place] [facility] [address] [id number], [place] [address]- [address] Mar, [facility] [address] [id number], [place] [address]- 2546 Mar, [facility] [id number], [place] [address]- 2546 Mar, [facility] [id number], [place] [address]- 2546 Feb, [facility] [address] [id number], [place] [address]- 2546 Feb, [facility] [id number], [place] [address]- 2546 Jan, [facility] [id number], [place] [address]- 2546 Jan, [facility] [id number], [place] [address]- 2546 Jan, IMMUNIZATIONS No Known Immunizations SOCIAL HISTORY Never Assessed REASON FOR VISIT referral request to see a rhuematologist, also would like to talk about recent chest pain and eye pain/pressure PLAN OF CARE Activity Details Follow Up 4 Weeks Reason: VITAL SIGNS Height 63 in 2017-12-12 Weight 195.5 lbs 2017-12-12 Temperature 97.9 degrees Fahrenheit 2017-12-12 Heart Rate 70 bpm 2017-12-12 Respiratory Rate 18 2017-12-12 BMI 34.63 kg/m2 2017-12-12 Blood pressure systolic 130 mmHg 2017-12-12 Blood pressure diastolic 62 mmHg 2017-12-12 MEDICATIONS Medication Instructions Dosage Frequency Start Date End Date Duration Status ProAir HFA 108 (90 Base) MCG/ACT 1 puff Active Ferrous Sulfate 325 (65 Fe) MG Orally 3 times a day 1 tablet 8h Active Nystatin 037695 UNIT/ML Mouth/Throat Four times a day 4 ml 6h Active Nystatin 357652 UNIT/GM Externally Twice a day 1 application to thighs as needed 12h 19 Sep, 2016 5 Active Fish Oil 1200 MG Orally Once a day at hs 1 capsule Active Gemfibrozil 600 MG TAKE ONE TABLET BY MOUTH TWICE DAILY 30 Active Pantoprazole Sodium 40 MG TAKE ONE TABLET BY MOUTH ONCE DAILY 30 Active Topamax 100 MG Orally Twice a day 1 tablet 12h Active Cetirizine HCl 10 MG Orally Once a day 1 tablet 24h Active Clotrimazole-Betamethasone 1-0.05 % Externally Twice a day 1 application to affected area 12h 21 Nov, 2017 4 Dec, 2017 14 days Active Imitrex 1/2 tablets Active Vitamin D (Ergocalciferol) 41053 UNIT TAKE ONE CAPSULE BY MOUTH TWICE WEEKLY 56 Active Cymbalta 60 MG TAKE ONE CAPSULE BY MOUTH ONCE DAILY Active Requip 5 MG Orally Once a day 1 tablet 24h Active Fluticasone Propionate 50 MCG/ACT USE ONE SPRAY IN EACH NOSTRIL TWICE DAILY Active Synthroid 150 MCG Orally Once a day TAKE 1 TABLET BY MOUTH ONCE DAILY 24h 30 Active Symbicort 80-4.5 MCG/ACT INHALE TWO PUFFS BY MOUTH TWICE DAILY. 25 Active Fiber Complete - Active Vitamin D-3 1000 UNIT Orally Once a day 1 tablet 24h Active Ipratropium [place] 0.03 % Nasally Three times a day prn drainage 1-2 sprays in each nostril as needed Active Vitamin C 1000 MG Orally Once a day 1 tablet 24h Active Aspirin 325 MG Orally Once a day 1 tablet 24h Active Lyrica 150 MG Orally 2 times a day 1 capsule 12h 28 days Active RESULTS No Results PROCEDURES Procedure Date Ordered Result Body Site [facility] Dec 12, 2017 X-RAY EXAM CHEST 2 VIEWS Dec 12, 2017 [facility] VISIT ESTABLISHED PATIENT Dec 12, 2017 MEAGAN, ROUTINE* Dec 12, 2017 INSTRUCTIONS MEDICATIONS ADMINISTERED No Known Medications MEDICAL [...] 2020 & 2007 Surgical History Bladder surgery [facility] 03/2016 Surgical History Neurotransmitter placed 10/2017 Hospitalization History Surgeries Only Hospitalization History bacterial meningitis December 2016 Hospitalization History [facility] psych for SI 1988 Hospitalization History [facility]-Altered mental status 05/2017
--- OUTSIDE RECORDS SUMMARY | 2018-05-29 07:43 | XMS REPORT ---
Author Author ZHANE BOSCH [facility] Address [address] [place] [address] Care Team Providers Care Patient Support Specialist Name Role Phone ZHANE BOSCH Unavailable PROBLEMS Type Condition ICD9-CM Code REG92-XH Code Onset Dates Condition Status SNOMED Code Problem Low back pain M54.5 Active 887064248 Problem Abnormal chest CT R93.8 Active 889647299 Problem Dysthymic disorder F34.1 Active 74815365 Problem Generalized anxiety disorder F41.1 Active 11036877 Problem Coronary artery disease involving chilkoot coronary artery of chilkoot heart, angina presence unspecified I25.10 Active 4617479606117 Problem Restless leg G25.81 Active 65711602 Problem Hypothyroid E03.9 Active 60050764 Problem Insomnia G47.00 Active 948433968 Problem Asthma J45.909 Active 990925698 Problem Chronic kidney disease, unspecified N18.9 Active 121111464 Problem Palpitations R00.2 Active 04027099 Problem Anemia in chronic kidney disease D63.1 Active 410171422092751 Problem Depressed F32.9 Active 87199221 Problem Bipolar disorder, current episode manic without psychotic features F31.10 Active 898762032 Problem Primary osteoarthritis of left knee M17.12 Active 882686049 Problem Degenerative tear of medial meniscus of left knee M23.204 Active 554900793 Problem Chronic pain syndrome G89.4 Active 193896190 Problem Restless leg syndrome G25.81 Active 01802382 Problem History of colon polyps Z86.010 Active 740372938 Problem Functional 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 Active 10629219 Problem Chronic kidney disease, stage 4 (severe) N18.4 Active 494669471 Problem Stage 3 chronic kidney disease N18.3 Active 731577915 Problem Mood disorder F39 Active 34890241 Problem Seasonal allergic rhinitis due to pollen J30.1 Active 52402958 Problem Body mass index (BMI) of 40.0-44.9 in adult Z68.41 Active 699397991 Problem Other seasonal allergic rhinitis J30.2 Active 115831531 Problem Long-term use of high-risk medication Z79.899 Active 178348933 Problem Hypokalemia E87.6 Active 28509319 Problem Asthma with acute exacerbation in adult J45.901 Active 718389821 Problem History of anemia Z86.2 Active 551003160 Problem Vitamin D deficiency E55.9 Active 24289207 Problem Essential (primary) hypertension I10 Active 53287018 Problem Fibromyalgia M79.7 Active 284650519 Problem Mixed stress and urge urinary incontinence N39.46 Active [id number] ALLERGIES No Information ENCOUNTERS Encounter Location Date Diagnosis [facility] [address] [address] Jan, [facility] [address] [address]- [address] Jan, [facility] [address] 23831- 1170 Dec, Vitamin D deficiency E55.9 [facility] [address] 30[address]- [address] Dec, [facility] [address] 41149- 5013 Dec, Fibromyalgia M79.7 [facility] [address] [address]- [address] Nov, [facility] [address] 016[address]- 8079 Nov, [facility] [address] 7[address]- 5787 Nov, [facility] [address] 49668- 3755 Nov, Fibromyalgia M79.7 ; Vision changes H53.9 ; Chest wall pain R07.89 and Chronic pain syndrome G89.4 [facility] [address] 6[address]- 8078 Nov, [facility] [id number] [place] [address] 78347- 1476 Nov, Rash of hands R21 [facility] [address] [address] [id number] [place] [address] 32253- 3257 Nov, Generalized anxiety disorder F41.1 and Major depressive disorder, recurrent episode with anxious distress F33.9 [facility] [address] [id number] [place] [address] 07870- 7198 Nov, Fibromyalgia M79.7 [place] [address] [place] [address] [id number] [place] [address] 85249- 5250 Nov, Complicated UTI (urinary tract infection) N39.0 [place] [address] [place] [id number] [place] [address] 62219- 3205 Oct, [place] [address] [address] [id number] [place] [address] 30099- 5824 Oct, Generalized anxiety disorder F41.1 and Major depressive disorder, recurrent episode with anxious distress F33.9 [place] [address] [address] [id number] [place] [address] 49703- 9704 Oct, [place] [address] [id number] [place] [address] 02118- 0167 Oct, Fibromyalgia M79.7 [place] [address] [id number] [place] [address] 59180- 5177 Sep, Restless leg syndrome G25.81 and Restless leg G25.81 [place] [id number] [place] [address] 84194- 6783 Sep, [facility] [address] [address] [id number] [place] [address] 09637- 5741 Sep, Seasonal allergic rhinitis due to pollen J30.1 ; Screening for breast cancer Z12.31 ; Chest pain at rest R07.9 ; Restless leg syndrome G25.81 ; Essential (primary) hypertension I10 and Depressed F32.9 [place] [address] [address] 269[address] August, Fibromyalgia M79.7 [facility] [id number] [place] [address] 89781- 1981 August, [facility] [id number] [place] [address] 35170- 4475 August, [facility] [id number] [place] [address] 99577- [address] August, Ab[address] chest [address] R93.8 [facility] [id number] [place] [address] 99385- 7010 August, Generalized anxiety disorder F41.1 and Major depressive disorder, recurrent episode with anxious distress F33.9 [place] [id number] [place] [address] 92507- [address] August, Ab[address] chest [address] R93.8 [place] [address] [id number] [place] [address] 02128- 4406 Jul, [facility] [id number] [place] [address] 61648- 3557 Jul, Chronic kidney disease, stage 4 (severe) N18.4 [facility] [id number] [place] [address] 33393- 8725 Jul, [place] [address] [id number] [place] [address] 22526- 6665 Jul, Restless leg G25.81 ; Mixed stress and urge urinary incontinence N39.46 and Fibromyalgia M79.7 [facility] [id number] [place] [address] 89141- 6688 Jul, Chronic kidney disease, stage 4 (severe) N18.4 [facility] [id number] [place] [address] 94095- 4050 Jun, Orthostatic hypotension I95.1 ; Chronic kidney disease, stage 4 (severe) N18.4 ; Chest wall discomfort R07.89 and Body mass index (BMI) of 40.0-44.9 in adult Z68.41 [facility] [id number] [place] [address] 91030- 0498 Jun, [facility] [id number] [place] [address] 20530- 9610 Jun, Orthostatic hypotension I95.1 [facility] [address] 19801- 9947 Jun, [facility] [id number] [place] [address] 36139 -8395 Jun, Orthostatic hypotension I95.1 ; Dysuria R30.0 and Acute cystitis without hematuria N30.00 [facility] [id number] [place] [address] 95537- 1348 Jun, [facility] [address] 71219- 3316 Jun, Chronic kidney disease, stage 4 (severe) N18.4 [place] [id number] [place] [address] 88389- 0048 Jun, Fibromyalgia M79.7 [facility] [id number] [place] [address] 16495- 0129 Jun, [facility] [id number] [place] [address] 09620- 4904 Jun, [facility] [id number] [place] [address] 76456- [address] May, [address] R93.8 and Stage 3 chronic kidney disease N18.3 [facility] [id number] [place] [address] 34121- 9456 May, Chronic kidney disease, stage 4 (severe) N18.4 [facility] [id number] [place] [address] 50194- 1595 May, Chronic kidney disease, stage 4 (severe) N18.4 [place] [id number] [place] [address] 97370- [address] May, [address] R93.8 [facility] [id number] [place] [address] 86634- 7713 May, [facility] [id number] [place] [address] 62134- 6332 May, [facility] [id number] [place] [address] 64352- 0861 May, Generalized anxiety disorder F41.1 and Major depressive disorder, recurrent episode with anxious distress F33.9 [place] [id number] [place] [address] 97236- 1794 May, Mood disorder F39 [place] [id number] [place] [address] 78362- 8833 Apr, [place] [id number] [place] [address] 89999- 1062 Apr, Infected skin lesion L08.9 and Muscle strain of right shoulder region, initial encounter S46.911A [place] [id number] [place] [address] 75665- 6689 Apr, Generalized anxiety disorder F41.1 and Major depressive disorder, recurrent episode with anxious distress F33.9 [place] [id number] [place] [address] 77558- 7538 Apr, [facility] [id number] [place] [address] 11067- 4171 Apr, Recent urinary tract infection Z87.440 and Hypothyroid E03.9 [facility] [id number] [place] [address] 88537- 2158 Apr, Generalized anxiety disorder F41.1 and Major depressive disorder, recurrent episode with anxious distress F33.9 [place] [id number] [place] [address] 97471- 0761 Apr, Recent urinary tract infection Z87.440 [facility] [address] [address]- 1078 Mar, [facility] [id number] [place] [address] 04773 -5283 Mar, Dysuria R30.0 ; Acute cystitis without hematuria N30.00 and BMI 40.0-44.9, adult Z68.41 [place] [id number] [place] [address] 07026- 1609 Mar, [place] [id number] [place] [address] 23024- 2615 Mar, [place] [id number] [place] [address] 61289- 3214 Mar, Generalized anxiety disorder F41.1 and Major depressive disorder, recurrent episode with anxious distress F33.9 [place] [id number] [place] [address] 03769- 3537 Feb, Conjunctivitis, bacterial H10.9 [place] [id number] [place] [address] 99985- 2244 Feb, [facility] [place] [id number] [place] [address] 53381 -9380 Feb, Conjunctivitis, bacterial H10.9 [place] [id number] [place] [address] 47121- 9068 Feb, [facility] [id number] [place] [address] 34966 -2713 Feb, Dysuria R30.0 ; Acute cystitis N30.00 and BMI 40.0-44.9, adult Z68.41 [place] [id number] [place] [address] 06604- 1955 08 Feb, 2017 [facility] [id number] [place] [address] 82591- 2888 Feb, Generalized anxiety disorder F41.1 and Major depressive disorder, recurrent episode with anxious distress F33.9 [place] [id number] [place] [address] 48249- 7260 Feb, Mood disorder F39 and BMI 40.0-44.9, adult Z68.41 [place] [address] [id number] [place] [address] 65514- 4406 Jan, [place] [address] 02405- 8171 Jan, [place] [address] 63980- 6334 Jan, Hypothyroid E03.9 [place] [address] 43217- 0916 Jan, [place] [address] 64423- 0315 Jan, Chronic kidney disease, unspecified N18.9 ; Hypokalemia E87.6 ; Essential (primary) hypertension I10 ; Fibromyalgia M79.7 ; Coronary artery disease involving chilkoot coronary artery of chilkoot heart, angina presence unspecified I25.10 ; Hypothyroid E03.9 and Encounter for immunization Z23 [place] [address] [address] [id number] [place] [address] 36805- 4756 Jan, Hypothyroid E03.9 [place] [address] [address] [id number] [place] [address] 74688- 0177 Jan, [place] [address] [id number] [place] [address] 50663- 9184 Dec, Vitamin D deficiency E55.9 [place] [address] [address] [id number] [place] [address] 89987- 0904 Dec, Primary osteoarthritis of left knee M17.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 [place] [address] [address] [id number] [place] [address] 83153- 0319 Dec, Fibromyalgia M79.7 [place] [address] [address]- 7080 18 Sep, 2017 Mood disorder F39 [facility] [id number] [place] [address] 56772- 1290 13 Dec, 2016 [facility] [id number] [place] [address] 91259- 9255 2016 Generalized anxiety disorder F41.1 and Major depressive disorder, recurrent episode with anxious distress F33.9 [facility] [id number] [place] [address] 31653- 7456 11 Dec, 2016 [facility] [id number] [place] [address] 70168- 1588 08 Dec, 2016 Streptococcal meningitis G00.2 [facility] [id number] [place] [address] 50585- 9998 07 Dec, 2016 Streptococcal meningitis G00.2 [facility] [id number] [place] [address] 27484- 1886 07 Dec, 2016 [facility] [id number] [place] [address] 56031- 6180 06 Dec, 2016 Streptococcal meningitis G00.2 [facility] [id number] [place] [address] 75408- 7124 06 Dec, 2016 [facility] [id number] [place] [address] 43796- 1927 06 Dec, 2016 Major depressive disorder, recurrent episode with anxious distress F33.9 [facility] [address] [address]- 3680 Nov, Fever, unspecified fever cause R50.9 [facility] [address], [place] [address]- 0429 24 Nov, 2016 [facility] [id number] [place] [address] 14276- 9610 16 Nov, 2016 Hypothyroid E03.9 [facility] [id number] [place] [address] 35544- 8226 Nov, Generalized anxiety disorder F41.1 and Major depressive disorder, recurrent episode with anxious distress F33.9 [facility] [id number] [place] [address] 90034- 6428 Nov, [facility] [id number] [place] [address] [id number] Oct, Dental examination Z01.20 [facility] [id number] [place] [address] 77001- 5176 Oct, Generalized anxiety disorder F41.1 and Major depressive disorder, recurrent episode with anxious distress F33.9 [facility] [id number] [place] [address] 22247- 0508 Oct, Chronic kidney disease, stage 4 (severe) N18.4 [place] [address] [id number] [place] [address] 85264- 1417 Oct, [facility] [id number] [place] [address] 86196- 1587 Oct, Fibromyalgia M79.7 [facility] [id number] [place] [address] 46508- 9798 Oct, [facility] [id number] [place] [address] 63976- 3945 Oct, Generalized anxiety disorder F41.1 ; Major depressive disorder, recurrent episode with anxious distress F33.9 and Bipolar disorder, current episode manic without psychotic features F31.10 [facility] [id number] [place] [address] 70673- 0602 Sep, [facility] [id number] [place] [address] 24935- 3809 Sep, [facility] [id number] [place] [address] 43224- 7424 Sep, Vitamin D deficiency E55.9 [facility] [id number] [place] [address] 09595- 6047 Sep, Vitamin D deficiency E55.9 [place] [id number] [place] [address] 41546- 5834 Sep, [place] [address] [address] [id number] [place] [address] 85338- 6927 Sep, Chronic kidney disease, stage 4 (severe) N18.4 ; Hypothyroid E03.9 ; Restless leg G25.81 ; Fibromyalgia M79.7 ; Essential ( primary) hypertension I10 ; Vitamin D deficiency E55.9 ; Dyspepsia R10.13 ; Anemia in chronic kidney disease D63.1 ; Chronic kidney disease, unspecified N18.9 ; Coronary artery disease involving chilkoot coronary artery of chilkoot heart , angina presence unspecified I25.10 ; Screening breast examination Z12.39 and Low back pain M54.5 [place] [address] [address] [id number] [place] [address] 57099- 6143 August, Generalized anxiety disorder F41.1 and Major depressive disorder, recurrent episode with anxious distress F33.9 [place] [address] [address] [id number] [place] [address] 35399- 7615 August, Generalized anxiety disorder F41.1 and Major depressive disorder, recurrent episode with anxious distress F33.9 [place] [address] [address] [id number] [place] [address] 39069- 0319 August, Fibromyalgia M79.7 [place] [address] [address] [id number] [place] [address] 49769- 4925 Jul, Generalized anxiety disorder F41.1 and Major depressive disorder, recurrent episode with anxious distress F33.9 [place] [id number] [place] [address] 57612- 0952 Jul, Fibromyalgia M79.7 [place] [address] [address] [id number] [place] [address] 70282- 8107 Jul, Generalized anxiety disorder F41.1 [place] [address] [address] [id number] [place] [address] 02756- 2074 May, [place] [address] [address] [id number] [place] [address] 73180- 0079 May, Hypothyroid E03.9 [place] [address] [address] [id number] [place] [address] 76677- 8648 May, Chronic kidney disease, stage 4 (severe) N18.4 ; Hypothyroid E03.9 ; Restless leg G25.81 ; Fibromyalgia M79.7 ; Essential ( primary) hypertension I10 ; Vitamin D deficiency E55.9 ; Dyspepsia R10.13 ; Acute non-recurrent maxillary sinusitis J01.00 ; Anemia in chronic kidney disease D63.1 ; Chronic kidney disease, unspecified N18.9 and Coronary artery disease involving chilkoot coronary artery of chilkoot heart, angina presence unspecified I25.10 [place] [address] [place] [id number] [place] [address] 78173- 9769 May, Vitamin D deficiency, unspecified E55.9 [place] [address] [place] [id number] [place] [address] 13309- 4619 May, Generalized anxiety disorder F41.1 and Major depressive disorder, recurrent episode with anxious distress F33.9 [place] [address] [place] [id number] [place] [address] 41197- 5198 Apr, Pain in right knee M25.561 and Pain in left knee M25.562 [place] [address] [place] [id number] [place] [address] 09386- 7531 Apr, [place] [address] [place] [address] [id number] [place] [address] 92205- 8506 Apr, [place] [address] [address] [id number] [place] [address] 39012- 1729 Apr, [place] [address] [place] [id number] [place] [address] 81633- 9982 Mar, Generalized anxiety disorder F41.1 and Major depressive disorder, recurrent episode with anxious distress F33.9 [place] [address] 92673- 0049 Mar, Generalized anxiety disorder F41.1 and Major depressive disorder, recurrent episode with anxious distress F33.9 [place] [address] [place] [id number] [place] [address] 61726- 5398 Mar, [facility] [id number] [place] [address] 57483- 8176 Mar, [place] [address] 39755- 3353 Mar, [place] [address] 77292- 9538 Mar, Asthma J45.909 and Fibromyalgia M79.7 [place] [address] 86824- 5001 Mar, Chronic kidney disease, stage 4 (severe) N18.4 ; Vitamin D deficiency E55.9 and Essential (primary) hypertension I10 [place] [address] [place] [id number] [place] [address] 25690- 3425 Feb, [place] [address] [place] [id number] [place] [address] 59333- 1095 Feb, Dysuria R30.0 ; Mixed stress and urge urinary incontinence N39.46 ; Fibromyalgia M79.7 and Chronic kidney disease, stage IV (severe) N18.4 [place] [address] [place] [id number] [place] [address] 62967- 6878 Feb, Chronic kidney disease, stage 4 (severe) N18.4 [place] [address] [place] [id number] [place] [address] 85840- 2207 Feb, Chronic kidney disease, stage 4 (severe) N18.4 [place] [address] [place] [id number] [place] [address] 57213- 8944 Feb, [place] [address] [place] [id number] [place] [address] [phone]- 1714 Feb, Vitamin D deficiency, unspecified E55.9 [place] [id number] [place] [address] [phone] Jan, [facility] [address] [id number] [place] [address] [phone]- [phone] Jan, [facility] [address] [id number] [place] [address] [phone]- 5177 Dec, [place] [address] 52353- 8313 Dec, Chronic kidney disease, stage 4 (severe) N18.4 [place] [address] [place] [id number] [place] [address] 51606- 5961 Dec, Dysthymic disorder F34.1 and Generalized anxiety disorder F41.1 [place] [address] [place] [id number] [place] [address] 66540- 4350 Dec, [place] [address] [place] [id number] [place] [address] 40313- 2704 Dec, [place] [address] [place] [id number] [place] [address] 22337- 9149 Dec, Dysthymic disorder F34.1 and Generalized anxiety disorder F41.1 [place] [id number] [place] [address] 04251- 0418 Dec, Dysuria R30.0 ; Chronic kidney disease, stage 4 (severe) N18.4 ; Hypertension I10 ; Dyspepsia R10.13 ; Yeast dermatitis B37.2 ; Palpitations R00.2 ; Hypothyroid E03.9 ; Functional 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 and Other seasonal allergic rhinitis J30.2 [facility] [id number] [place] [address] 50488 -8096 Dec, [facility] [id number] [place] [address] 63442 -3417 Nov, Dysuria R30.0 and Stress incontinence N39.3 [place] [id number] [place] [address] 60474- 1892 Nov, [facility] [id number] [place] [address] 30238- 9584 Nov, [facility] [id number] [place] [address] 53705- 7702 Nov, Osteoarthritis of knees, bilateral M17.0 [facility] [id number] [place] [address] 86572- 4296 Nov, Dysthymic disorder F34.1 and Generalized anxiety disorder F41.1 [place] [id number] [place] [address] 77235- 1984 Nov, [place] [id number] [place] [address] 76900- 4547 Nov, [place] [id number] [place] [address] 80965- 3298 Nov, Urgency of urination R39.15 [place] [id number] [place] [address] 70525- 7825 Nov, [place] [id number] [place] [address] 53762- 2271 Nov, Chronic kidney disease, stage 4 (severe) N18.4 [place] [id number] [place] [address] 59557- 6680 Oct, Hypertension I10 ; Coronary artery disease involving chilkoot coronary artery of chilkoot heart, angina presence unspecified I25.10 ; Palpitations R00.2 ; Hypothyroid E03.9 ; Right foot pain M79.671 ; Functional 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 and Other seasonal allergic rhinitis J30.2 [facility] [id number] [place] [address] 01404- 6429 Oct, Dysthymic disorder F34.1 and Generalized anxiety disorder F41.1 [facility] [id number] [place] [address] 50564- 1005 Sep, [facility] [address] [place] [address] 3469 Sep, [facility] [id number] [place] [address] 49539- 6748 Sep, [facility] [id number] [place] [address] 84680- 3826 Sep, [place] [id number] [place] [address] 72357- 4135 Sep, [place] [id number] [place] [address] 79142- 0067 Sep, Dysthymic disorder F34.1 and Generalized anxiety disorder F41.1 [place] [id number] [place] [address] 65913- 4370 16 Sep, 2015 Asthma with acute exacerbation in adult J45.901 ; Dysuria R30.0 ; Chronic kidney disease, stage 4 (severe) N18.4 and History of anemia Z86.2 [place] [id number] [place] [address] 88848- 3045 2015 Generalized anxiety disorder F41.1 and Dysthymic disorder F34.1 [place] [id number] [place] [address] 92350- 1990 August, Screening breast examination Z12.39 and Acute recurrent maxillary sinusitis J01.01 [place] [id number] [place] [address] 36359- 6790 August, Osteoarthritis of knees, bilateral M17.0 [place] [id number] [place] [address] 02961- 1790 August, Chronic kidney disease, stage 4 (severe) N18.4 ; Acute non- recurrent maxillary sinusitis J01.00 ; Urinary problem R39.89 ; Bowel habit changes R19.4 ; Functional 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 and History of colon polyps Z86.010 [place] [address] [address] 8549 Jul, Dysthymic disorder F34.1 and Generalized anxiety disorder F41.1 [facility] [id number] [place] [address] 76168- 5629 Jul, [facility] [id number] [place] [address] 56399- 5343 Jul, Dysthymic disorder F34.1 ; Generalized anxiety disorder F41.1 and long-term use of drug Z79.899 [facility] [id number] [place] [address] 90143- 5851 Jul, [facility] [id number] [place] [address] 16380- 3147 Jun, [place] [id number] [place] [address] 35203- 5861 Jun, [place] [id number] [place] [address] 38147- 1971 May, [place] [id number] [place] [address] 63644- 2801 May, Dysthymic disorder F34.1 and Generalized anxiety disorder F41.1 [place] [id number] [place] [address] 35705- 9376 Apr, Kidney disease N28.9 [place] [id number] [place] [address] 13571- 1426 Apr, Generalized anxiety disorder F41.1 and Dysthymic disorder F34.1 [place] [id number] [place] [address] 59659- 6730 Apr, Chronic kidney disease, stage 4 (severe) N18.4 [place] [id number] [place] [address] 77219- 3607 Apr, Generalized anxiety disorder F41.1 ; Major depression, recurrent F33.9 and Sleep disturbance G47.9 [place] [id number] [place] [address] 66179- 0210 Mar, Generalized anxiety disorder F41.1 and Dysthymic disorder F34.1 [facility] [id number] [place] [address] 23843- 0367 Mar, Generalized anxiety disorder F41.1 ; Dysthymic disorder F34.1 and Insomnia G47.00 [facility] [id number] [place] [address] 50738- 4112 Mar, [facility] [address] 55098- 2977 Mar, [facility] [id number] [place] [address] 41316- 2408 Mar, Osteoarthritis of knees, bilateral M17.0 [facility] [address] 36187- 6672 Mar, Hypertension I10 ; Hypothyroid E03.9 ; Dysthymic disorder F34.1 ; Chronic kidney disease, stage 4 (severe) N18.4 and Nausea & vomiting R11.2 [place] [id number] [place] [address] 51599- 6831 Mar, Generalized anxiety disorder F41.1 ; Dysthymic disorder F34.1 and Insomnia G47.00 [facility] [id number] [place] [address] 24378- 7646 Mar, Dehydration E86.0 ; Chronic kidney disease, stage 4 (severe ) N18.4 and Nausea & vomiting R11.2 [facility] [id number] [place] [address] 78578 -4840 08 Mar, 2015 Gastroenteritis K52.9 [facility] [id number] [place] [address] 54906- 4201 Mar, [facility] [id number] [place] [address] 78540- 9951 Mar, [facility] [id number] [place] [address] 77577- 5410 Feb, Dysthymic disorder F34.1 and Generalized anxiety disorder F41.1 [place] [id number] [place] [address] 15576- 4597 Jan, UTI (urinary tract infection) N39.0 ; Asthma J45.909 ; Coronary artery disease involving chilkoot coronary artery of chilkoot heart, angina presence unspecified I25.10 ; Hypertension I10 ; Hypothyroid E03.9 ; Vitamin D deficiency E55.9 ; Insomnia G47.00 ; Palpitations R00.2 ; Depressed F32.9 ; Restless leg G25.81 and Anxiety F41.9 [place] [id number] [place] [address] 85500- 5544 Jan, Dysthymic disorder F34.1 and Generalized anxiety disorder F41.1 [place] [id number] [place] [address] 42356- 5942 Jan, [place] [address] 02556- 1577 30 Dec, 2014 [place] [id number] [place] [address] 95362- 0216 28 Dec, 2014 Alkalosis 276.3 ; Chronic kidney disease, 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.4 ; Hyperpotassemia 276.7 ; Secondary hyperparathyroidism, renal 588.81 ; Proteinuria 791.0 ; Unspecified vitamin D deficiency 268.9 ; Anemia in chronic kidney disease 285.21 ; Other and unspecified hyperlipidemia 272.4 ; Hypertension, essential, benign 401.1 and Chronic kidney disease (CKD), stage III (moderate) 585.3 [place] [id number] [place] [address] 95139- 7661 Dec, [address] 85940- 3267 Dec, Depressive disorder, not elsewhere classified 311 and Generalized anxiety disorder 300.02 [place] [id number] [place] [address] 65024- 9403 Dec, [place] [address] 14059- 4349 Dec, [place] [id number] [place] [address] 91144- 8509 Nov, Depressive disorder, not elsewhere classified 311 and Generalized anxiety disorder 300.02 [place] [id number] [place] [address] 12963- 9188 Nov, Arthritis of both knees 716.[address] 05052- 2646 Nov, PAF (paroxysmal atrial fibrillation) 427.31 ; CAD (coronary artery disease) 414.00 ; Chest pain 786.50 and Chronic kidney disease (CKD) stage G4/A1, severely decreased glomerular filtration rate (GFR) between 15-29 mL/min/1.73 square meter and albuminuria creatinine ratio less than 30 mg/g 585.4 [place] [id number] [place] [address] 62976- 6361 Oct, Coronary atherosclerosis of unspecified type of vessel, chilkoot or graft 414.00 ; Chronic kidney disease, 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.4 ; Hypertension 401.9 and Edema 782.3 [place] [id number] [place] [address] 70101- 9111 Oct, Depressive disorder, not elsewhere classified 311 and Generalized anxiety disorder 300.02 [place] [id number] [place] [address] 76621- 4553 Oct, Depressive disorder, not elsewhere classified 311 and Generalized anxiety disorder 300.02 [place] [id number] [place] [address] 12083- 3634 Oct, [place] [id number] [place] [address] 22160- 2315 Oct, [place] [id number] [place] [address] 04420- 6857 Sep, [place] [id number] [place] [address] 86684- 6154 Sep, Chronic kidney disease, 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.4 [facility] [id number] [place] [address] 31332- 3792 Sep, [facility] [id number] [place] [address] 08915- 1503 Sep, Coronary atherosclerosis of unspecified type of vessel, chilkoot or graft 414.00 ; Hypertension 401.9 ; Edema 782.3 and Hypothyroidism 244.9 [place] [address] 45201- 1137 Sep, Coronary atherosclerosis of unspecified type of vessel, chilkoot or graft 414.00 ; Hypertension 401.9 ; Fibromyalgia 729.1 ; Edema 782.3 ; Hypothyroidism 244.9 and Anemia 285.9 [place] [address] 63786- 5111 Sep, Anxiety disorder, unspecified 300.00 and Depressive disorder , not elsewhere classified 311 [place] [address] 68758- 5115 Sep, [facility] [address] 00496- 5004 August, Generalized anxiety disorder 300.02 [place] [id number] [place] [address] 06131- 6993 August, Closed fracture of lateral malleolus 824.2 [place] [id number] [place] [address] 30546- 7740 Jul, [facility] [id number] [place] [address] 17935- 8465 Jul, [facility] [id number] [place] [address] 86895- 0742 Jun, [place] [address] 05750- 5273 Jun, [facility] [id number] [place] [address] 43540- 8581 Jun, [facility] [place] [facility] [address] [id number] [place] [address]- 4966 Jun, [facility] [place] [facility] [address] [id number] [place] [address]- 3700 Jun, [facility] [place] [facility] [address] [id number] [place] [address]- 8148 Jun, [facility] [place] [facility] [address] [id number] [place] [address]- 4802 May, 2014 [facility] [place] [facility] [address] [id number] [place] [address]- 5956 May, 2014 [facility] [place] [facility] [address] [id number] [place] [address]- 7906 May, 2014 [facility] [place] [facility] [address] [id number] [place] [address]- 2068 May, 2014 [facility] [place] [facility] [address] [id number] [place] [address]- 9472 16 May, 2014 [facility] [place] [facility] [address] [id number] [place] [address]- 8163 16 May, 2014 [facility] [place] [facility] [address] [id number] [place] [address]- 3181 May, 2014 [facility] [place] [facility] [address] [id number] [place] [address]- 6817 May, 2014 [facility] [place] [facility] [address] [id number] [place] [address]- 4877 May, 2014 [facility] [place] [facility] [address] [id number] [place] [address]- 1201 May, [facility] [place] [facility] [address] [id number] [place] [address]- 9648 Apr, [facility] [place] [facility] [address] [id number] [place] [address]- 6406 Apr, [facility] [place] [facility] [address] [id number] [place] [address]- 0238 Mar, [facility] [place] [facility] [address] [id number] [place] [address]- 4796 Mar, [facility] [place] [facility] [address] [id number] [place] [address]- 9355 Mar, [facility] [place] [facility] [address] [id number] [place] [address]- 2446 Mar, [facility] [place] [facility] [address] [id number] [place] [address]- 5149 Mar, [facility] [place] [facility] [address] [id number] [place] [address]- 5528 Mar, [facility] [place] [facility] [address] [id number] [place] [address]- 8729 Mar, [facility] [place] [facility] [address] [id number] [place] [address]- 0855 Feb, [facility] [place] [facility] [address] [id number] [place] [address]- 7891 Feb, [facility] [place] [facility] [address] [id number] [place] [address]- 2939 Feb, [facility] [place] [facility] [address] [facility] [id number] [place] [address]- 7520 Jan, [facility] [place] [facility] [address] [id number] [place] [address]- 9992 Jan, [facility] [place] [facility] [address] [id number] [place] [address]- 7149 Jan, [facility] [place] [facility] [address] [id number] [place] [address]- 4565 Jan, [facility] [place] [facility] [address] [id number] [place] [address]- 5757 Jan, [facility] [place] [facility] [address] [id number] [place] [address]- 0774 Jan, [facility] [place] [facility] [address] [id number] [place] [address]- 6118 Jan, [facility] [place] [facility] [address] [id number] [place] [address]- 7480 Jan, [facility] [place] [facility] [address] [id number] [place] [address]- 2814 Jan, [facility] [place] [facility] [address] [id number] [place] [address]- 3999 Jan, [facility] [place] [facility] [address] [id number] [place] [address]- 2713 Nov, [facility] [place] [facility] [address] [id number] [place] [address]- 3793 Nov, [facility] [place] [facility] [address] [id number] [place] [address]- 2505 Nov, [facility] [place] [facility] [address] [id number] [place] [address]- 0480 Oct, [facility] [place] [facility] [address] [id number] [place] [address]- 5042 Oct, [facility] [place] [facility] [address] [id number] [place] [address]- 3296 Oct, [facility] [place] [facility] [address] [id number] [place] [address]- 9033 Oct, [facility] [place] [facility] [address] [id number] [place] [address]- 7889 Oct, [facility] [place] [facility] [address] [id number] [place] [address]- 0284 Oct, [facility] [place] [facility] [address] [id number] [place] [address]- 4320 Oct, [facility] [place] [facility] [address] [id number] [place] [address]- 3706 Oct, [facility] [place] [facility] [address] [id number] [place] [address]- 4616 Oct, [facility] [place] [facility] [address] [id number] [place] [address]- 8126 Sep, [facility] [place] [facility] [address] [id number] [place] [address]- 3183 Sep, [facility] [place] [facility] [address] [id number] [place] [address]- 5524 Sep, [facility] [place] [facility] [address] [id number] [place] [address]- 9335 Sep, [facility] [place] [facility] [address] [id number] [place] [address]- 2139 Sep, [facility] [place] [facility] [address] [id number] [place] [address]- 3873 Sep, [facility] [place] [facility] [address] [id number] [place] [address]- 6750 Sep, [facility] [place] [facility] [address] [id number] [place] [address]- 7078 Sep, [facility] [place] [facility] [address] [id number] [place] [address]- 1981 Sep, [facility] [place] [facility] [address] [id number] [place] [address]- 1146 August, [facility] [place] [facility] [address] [id number] [place] [address]- 0535 August, [facility] [place] [facility] [address] [id number], [place] [address]- 2649 August, [facility] [place] [facility] [address] [id number] [place] [address]- 8143 August, [facility] [place] [facility] [address] [id number] [place] [address]- 7602 August, [facility] [place] [facility] [address] [id number] [place] [address]- 6563 August, [facility] [place] [facility] [address] [id number] [place] [address]- 8005 Jul, [facility] [address] [id number] [place] [address]- 9825 Jul, [facility] [place] [facility] [address] [id number] [place] [address]- 4444 Jul, [facility] [place] [facility] [address] [id number] [place] [address]- 0666 Jul, [facility] [place] [facility] [address] [id number] [place] [address]- 2327 Jul, [facility] [place] [facility] [address] [id number] [place] [address]- 8460 Jul, [facility] [place] [facility] [address] [id number] [place] [address]- 6027 Jun, [facility] [place] [facility] [address] [id number] [place] [address]- 8696 Jun, [facility] [place] [facility] [address] [id number] [place] [address]- 7394 May, [facility] [place] [facility] [address] [id number] [place] [address]- 3420 May, [facility] [address] [id number] [place] [address]- 9032 May, [facility] [place] [facility] [address] [id number] [place] [address]- 5780 May, [facility] [place] [facility] [address] [id number] [place] [address]- 5234 Apr, [facility] [place] [facility] [address] [id number] [place] 5757 Apr, [facility] [place] [facility] [address] [id number] [place] [address]- 6686 Mar, [facility] [place] [facility] [address] [id number] [place] 8851 Mar, [facility] [place] [facility] [address] [id number] [place] [address]- 9323 Mar, [facility] [place] [facility] [address] [id number] [place] [address]- 3668 Mar, [facility] [place] [facility] [address] [id number] [place] [address]- 0546 Mar, [facility] [place] [facility] [address] [id number] [place] [address]- 8858 Mar, [facility] [place] [facility] [address] [id number] [place] [address]- 0628 Feb, [facility] [place] [facility] [address] [id number] [place] [address] Feb, [facility] [place] [facility] [address] [id number] [place] [address] Feb, [facility] [place] [facility] [address] [id number], [place] [address] Feb, [facility] [place] [facility] [address] [id number] [place] [address] Feb, [facility] [place] [facility] [address] [id number], [place] [address] Feb, [facility] [place] [facility] [address] [id number], [place] [address] Jan, [facility] [place] [facility] [address] [id number], [place] [address] 24 Jan, 2013 [facility] [place] [facility] [address] [id number] [place] [address] Jan, [facility] [place] [facility] [address] [id number], [place] [address] Jan, [facility] [place] [facility] [address] [id number], [place] [address] Jan, [facility] [place] [facility] [address] [id number] [place] [address]- [address] Jan, [facility] [place] [facility] [address] [id number] [place] [address] Dec, [facility] [place] [facility] [address] [id number] [place] [address] Dec, [facility] [place] [facility] [address] [id number] [place] [address]- [address] Nov, [facility] [place] [facility] [address] [id number] [place] [address]- [address] Nov, [facility] [place] [facility] [address] [id number] [place] [address]- [address] Oct, [facility] [place] [facility] [address] [id number] [place] [address]- [address] Oct, [facility] [place] [facility] [address] [id number] [place] [address]- [address] Oct, [facility] [place] [facility] [address] [id number] [place] [address]- [address] Oct, [facility] [place] [facility] [address] [id number] [place] [address]- 2016 Oct, [facility] [place] [facility] [address] [id number] [place] [address]- [address] Oct, [facility] [place] [facility] [address] [id number] [place] [address]- [address] Sep, [facility] [place] [facility] [address] [id number] [place] [address]- [address] Sep, [facility] [place] [facility] [address] [id number] [place] [address] Sep, [facility] [place] [facility] [address] [id number] [place] [address]- [address] Sep, [facility] [place] [facility] [address] [id number] [place] [address]- [address] August, [facility] [place] [facility] [address] [id number] [place] [address]- [address] August, [facility] [address] [id number] [place] [address] August, [facility] [address] [id number] [place] [address]- [address] August, [facility] [address] [id number] [place] [address]- [address] August, [facility] [address] [id number] [place] [address] Jul, [facility] [address] [id number] [place] [address]- [address] Jul, [facility] [address] [id number] [place] [address] Jul, [facility] [address] [id number] [place] [address] Jul, [facility] [address] [id number] [place] [address] Jul, [facility] [address] [id number] [place] [address] Jul, [facility] [address] [id number] [place] [address] Jul, [facility] [address] [id number], [place] [address] Jul, [facility] [address] [id number] [place] [address] Jul, [facility] [address] [id number] [place] [address]- [address] Jul, [facility] [address] [id number] [place] [id number] Jun, [facility] [address] [id number] [place] [address] Jun, [facility] [address] [id number] [place] [address] Jun, [facility] [place] [facility] [address] [id number] [place] [address] Jun, [facility] [place] [facility] [address] [id number] [place] [address] Jun, [facility] [place] [facility] [address] [id number] [place] [address] May, [facility] [address] [id number] [place] [address] 245[address] May, [facility] [place] [facility] [address] [id number] [place] [address] 395[address] May, [facility] [address] [id number] [place] [address]114 Apr, [facility] [place] [facility] [address] [id number] [place] [address] Apr, [facility] [place] [facility] [address] [id number] [place] [address] 67[address] Apr, [facility] [place] [facility] [address] [id number] [place] [address]- 7617 Apr, [facility] [place] [facility] [address] [id number] [place] [address] 6[address] Apr, [facility] [place] [facility] [address] [id number] [place] [address] 8490 Apr, [facility] [place] [facility] [address] [id number] [place] [address] 9[address] Mar, [facility] [place] [facility] [address] [id number] [place] [address]- 1088 Mar, [facility] [place] [facility] [address] [id number] [place] [address] 1555 Mar, [facility] [place] [facility] [address] [id number] [place] [address] 9743 Mar, [facility] [place] [facility] [address] [id number] [place] [address]- 9989 Feb, [facility] [place] [facility] [address] [id number] [place] [address]- 3925 Feb, [facility] [place] [facility] [address] [id number] [place] [address] 6578 Feb, [facility] [place] [facility] [address] [id number] [place] [address] 0459 Feb, [facility] [place] [facility] [address] [id number] [place] [address] 9107 Feb, [facility] [place] [facility] [address] [id number] [place] [address] 4236 Feb, [facility] [place] [facility] [address] [id number] [place] [address]- 8960 Feb, [facility] [place] [facility] [address] [id number] [place] [address] 2900 Feb, [facility] [place] [facility] [address] [id number] [place] [address] 5379 Feb, [facility] [place] [facility] [address] [facility] [place] [id number] [place] [address] 3[address] Feb, [facility] [place] [facility] [address] [id number] [place] [address] 5624 Feb, [facility] [place] [facility] [address] [id number], [place] [address] Feb, [facility] [place] [facility] [address] [id number] [place] [address] 9503 Feb, [facility] [place] [facility] [address] [facility] [place] [id number] [place] [address] Feb, [facility] [place] [facility] [address] [id number], [place] [address] 113[address] Feb, [facility] [place] [facility] [address] [id number] [place] [address] 1086 Feb, [facility] [place] [facility] [address] [id number] [place] [address]- 7183 Jan, [facility] [place] [facility] [address] [id number] [place] [address] 0287 Jan, [facility] [place] [facility] [address] [id number] [place] [address], [place] [address]- 9792 Jan, [facility] [place] [facility] [address] [id number] [place] [address]- 9325 Jan, [facility] [place] [facility] [address] [id number] [place] [address]- 4080 Jan, [facility] [place] [facility] [address] [id number] [place] [address]- 2356 Jan, [facility] [place] [facility] [address] [id number] [place] [address]- 3825 Jan, [facility] [place] [facility] [address] [id number] [place] [address] 3280 Jan, [facility] [place] [facility] [address] [id number] [place] [address]- 0928 Jan, [facility] [place] [facility] [address] [id number] [place] [address] 8101 Jan, [facility] [place] [facility] [address] [id number], [place] [address] 1688 Jan, [facility] [place] [facility] [address] [id number] [place] [address] 3198 Jan, [facility] [place] [facility] [address] [id number] [place] [address] 7437 Dec, [facility] [place] [facility] [address] [id number] [place] [address] 4552 Dec, [facility] [place] [facility] [address] [id number], [place] [address] 69[address] 24 Sep, 2011 [facility] [place] [facility] [address] [id number] [place] [address] 2546 23 Sep, 2011 [facility] [place] [facility] [address] [id number] [place] [address] 2546 22 Sep, 2011 [facility] [place] [facility] [address] [id number] [place] [address] 2546 21 Sep, 2011 [facility] [place] [facility] [address] [id number] [place] [address] 2546 20 Sep, 2011 [facility] [place] [facility] [address] [id number] [place] [address] 2546 20 Sep, 2011 [facility] [place] [facility] [address] [id number] [place] [address]- 8836 07 Dec, 2011 [facility] [place] [facility] [address] [id number] [place] [address]- 6282 06 Sep, 2011 [facility] [place] [facility] [address] [id number] [place] [address]- 3183 06 Dec, 2011 [facility] [place] [facility] [address] [id number] [place] [address]- 9033 05 Dec, 2011 [facility] [place] [facility] [address] [id number] [place] [address]- 0198 23 Nov, 2011 [facility] [place] [facility] [address] [id number] [place] [address]- 3824 17 Nov, 2011 [facility] [place] [facility] [address] [id number] [place] [address]- 1246 13 Nov, 2011 [facility] [place] [facility] [address] [id number] [place] [address]- 2544 10 Nov, 2011 [facility] [place] [facility] [address] [id number] [place] [address]- 3699 08 Nov, 2011 [facility] [place] [facility] [address] [id number] [place] [address]- 7839 07 Nov, 2011 [facility] [place] [facility] [address] [id number] [place] [address]- 2546 Nov, [facility] [address] [id number] [place] [address] 7936 Nov, [facility] [place] [facility] [address] [id number] [place] [address] 2546 Oct, [facility] [address] [id number] [place] [address]- 8476 Oct, [facility] [address] [id number] [place] [address]- 0447 Oct, [facility] [address] [id number] [place] [address]- 7114 Oct, [facility] [address] [id number] [place] [address]- 0956 Oct, [facility] [address] [id number] [place] [address]- 3916 Oct, [facility] [address] [id number] [place] [address]- 0943 Oct, [facility] [address] [id number] [place] [address]- 0126 Sep, [facility] [address] [id number] [place] [address]- 0176 Sep, [facility] [address] [id number] [place] [address]- 2546 August, [facility] [address] [id number] [place] [address]- 2546 August, [facility] [place] [facility] [address] [id number] [place] [address]- 1466 August, [facility] [place] [facility] [address] [id number] [place] [address]- 2546 August, [facility] [address] [id number] [place] [address] Jul, [facility] [place] [facility] [address] [id number] [place] [address]- 0009 Jul, [facility] [place] [facility] [address] [id number] [place] [address]- 4671 Jul, [facility] [place] [facility] [address] [id number] [place] [address]- 4862 Jul, [facility] [place] [facility] [address] [id number] [place] [address]- 2566 Jul, [facility] [place] [facility] [address] [id number] [place] [address]- 6138 Jul, [facility] [place] [facility] [address] [id number] [place] [address]- 3951 Jul, [facility] [place] [facility] [address] [id number] [place] [address]- 8097 Jul, [facility] [place] [facility] [address] [id number] [place] [address]- 0942 Jul, [facility] [place] [facility] [address] [id number] [place] [address]- 4120 Jun, [facility] [place] [facility] [address] [id number] [place] [address]- 0609 Jun, [facility] [place] [facility] [address] [id number], [place] [address]- 3138 15 Jun, 2011 [facility] [place] [facility] [address] [id number], [place] [address]- 9440 14 Jun, 2011 [facility] [place] [facility] [address] [id number] [place] [address]- 8671 12 Jun, 2011 [facility] [place] [facility] [address] [id number] [place] [address]- 4010 Jun, [facility] [place] [facility] [address] [id number], [place] [address]- 4484 Jun, [facility] [place] [facility] [address] [id number], [place] [address]- 6619 May, [facility] [address] [id number] [place] [address]- 4926 May, [facility] [address] [id number] [place] [address] 2546 May, [facility] [address] [id number] [place] [address] 2546 May, [facility] [address] [id number] [place] [address] 2546 May, [facility] [address] [id number] [place] [address]- 9283 Apr, [facility] [address] [id number] [place] [address]- 7846 Apr, [facility] [address] [id number] [place] [address]- 5288 Apr, [facility] [address] [id number] [place] [address]- 4483 Apr, [facility] [address] [id number] [place] [address]- 9658 Apr, [facility] [address] [id number] [place] [address]- 4689 Mar, [facility] [address] [id number] [place] [address] 2546 Mar, [facility] [address] [id number] [place] [address] 2546 Mar, [facility] [place] [facility] [address] [id number] [place] [address] 2546 Mar, [facility] [place] [facility] [address] [id number] [place] [address] 2546 Mar, [facility] [address] [id number] [place] [address] 2543 Mar, [facility] [place] [facility] [address] [id number] [place] [address]- 5742 Mar, [facility] [place] [facility] [address] [id number] [place] [address]- 8794 Feb, [facility] [place] [facility] [address] [id number] [place] [address]- 1257 Feb, [facility] [place] [facility] [address] [id number] [place] [address]- 5591 Feb, [facility] [place] [facility] [address] [id number] [place] [address]- 0774 Feb, [facility] [place] [facility] [address] [id number] [place] [address]- 6181 Jan, [facility] [place] [facility] [address] [id number] [place] [address]- 8664 Jan, [facility] [place] [facility] [address] [id number] [place] [address]- 0797 Jan, [facility] [place] [facility] [address] [id number] [place] [address]- 3968 Jan, [facility] [place] [facility] [address] [id number] [place] [address]- 8869 Nov, [facility] [place] [facility] [address] [id number] [place] [address]- 4761 Mar, [facility] [place] [facility] [address] [id number] [place] [address]- 9210 Mar, [facility] [place] [facility] [address] [id number] [place] [address]- 1349 Mar, [facility] [place] [facility] [address] [id number] [place] [address]- 6604 Mar, [facility] [place] [facility] [address] [id number] [place] [address] 254 Mar, [facility] [place] [facility] [address] [id number] [place] [address]- 2546 Mar, [facility] [address] [facility] [place] [id number] [place] [address]- 2546 Feb, [facility] [address] [facility] [place] [id number], [place] [address]- 2546 Feb, [facility] [address] [facility] [place] [id number], [place] [address]- 2546 Jan, [facility] [address] [facility] [place] [id number], [place] [address]- 2546 Jan, [facility] [address] [facility] [place] [id number], [place] [address]- 2546 Jan, IMMUNIZATIONS No Known Immunizations SOCIAL HISTORY Never Assessed REASON FOR VISIT Referral Request PLAN OF CARE VITAL SIGNS MEDICATIONS Unknown [...] 2020 & 2007 Surgical History Bladder surgery [facility] 03/2016 Surgical History 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
--- OUTSIDE RECORDS SUMMARY | 2018-05-29 07:44 | XMS REPORT ---
Author Author ZHANE BOSCH [facility] Address [address] [place] [address] Care Team Providers Care Change Agent Name Role Phone ZHANE BOSCH Unavailable PROBLEMS Type Condition ICD9-CM Code XUN79-NI Code Onset Dates Condition Status SNOMED Code Problem Low back pain M54.5 Active 616379698 Problem Abnormal chest CT R93.8 Active 213996754 Problem Dysthymic disorder F34.1 Active 28963647 Problem Generalized anxiety disorder F41.1 Active 20257659 Problem Coronary artery disease involving [place] coronary artery of [place] heart, angina presence unspecified I25.10 Active 3559827180162 Problem Restless leg G25.81 Active 03589085 Problem Hypothyroid E03.9 Active 81739013 Problem Insomnia G47.00 Active 006842836 Problem Asthma J45.909 Active 203425348 Problem Chronic kidney disease, unspecified N18.9 Active 243293037 Problem Palpitations R00.2 Active 08036814 Problem Anemia in chronic kidney disease D63.1 Active 283754715220239 Problem Depressed F32.9 Active 60235534 Problem Bipolar disorder, current episode manic without psychotic features F31.10 Active 192763746 Problem Primary osteoarthritis of left knee M17.12 Active 341233150 Problem Degenerative tear of medial meniscus of left knee M23.204 Active 157775933 Problem Chronic pain syndrome G89.4 Active 170104946 Problem Restless leg syndrome G25.81 Active 37706371 Problem History of colon polyps Z86.010 Active 496075717 Problem Functional 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 Active 25114396 Problem Chronic kidney disease, stage 4 (severe) N18.4 Active 217350410 Problem Stage 3 chronic kidney disease N18.3 Active 407320179 Problem Mood disorder F39 Active 41360721 Problem Seasonal allergic rhinitis due to pollen J30.1 Active 50263915 Problem Body mass index (BMI) of 40.0-44.9 in adult Z68.41 Active 160203012 Problem Other seasonal allergic rhinitis J30.2 Active 791762867 Problem Long-term use of high-risk medication Z79.899 Active 716193382 Problem Hypokalemia E87.6 Active 61174529 Problem Asthma with acute exacerbation in adult J45.901 Active 947842046 Problem History of anemia Z86.2 Active 639263592 Problem Vitamin D deficiency E55.9 Active 40591946 Problem Essential (primary) hypertension I10 Active 05886702 Problem Fibromyalgia M79.7 Active 063840351 Problem Mixed stress and urge urinary incontinence N39.46 Active 053824067 ALLERGIES No Information ENCOUNTERS Encounter Location Date Diagnosis [facility] [address] [address] Jan, [facility] [address] [address] Jan, [facility] [address] [address]- [address] Dec, Vitamin D deficiency E55.9 [facility] [address] [address]- [address] Dec, [facility] [address] [address]- [address] Dec, Fibromyalgia M79.7 [facility] [address] [address]- [address] Nov, [facility] [address] 04[address]- [address] Nov, [facility] [address] 29[address]- [address] Nov, [facility] [address] [address]- [address] Nov, Fibromyalgia M79.7 ; Vision changes H53.9 ; Chest wall pain R07.89 and Chronic pain syndrome G89.4 [facility] [address] [address]- [address] Nov, [facility] [id number] [place] [address] 73868- 3367 Nov, Rash of hands R21 [facility] [id number] [place] [address] 93849- 4374 Nov, Generalized anxiety disorder F41.1 and Major depressive disorder, recurrent episode with anxious distress F33.9 [facility] [facility] [address] [id number] [place] [address] 71608- 0688 Nov, Fibromyalgia M79.7 [place] [address] [id number] [place] [address] 02569- 7722 Nov, Complicated UTI (urinary tract infection) N39.0 [place] [address] [id number] [place] [address] 27192- 3365 Oct, [facility] [facility] [id number] [place] [address] 77579- 9605 Oct, Generalized anxiety disorder F41.1 and Major depressive disorder, recurrent episode with anxious distress F33.9 [place] [address] [id number] [place] [address] 09889- 8182 Oct, [place] [id number] [place] [address] 78646- 3305 Oct, Fibromyalgia M79.7 [facility] [facility] [address] [id number] [place] [address] 36511- 7841 Sep, Restless leg syndrome G25.81 and Restless leg G25.81 [facility] [address] [place] [address] 25841- 2384 Sep, [facility] [facility] [id number] [place] [address] 78669- 2279 Sep, Seasonal allergic rhinitis due to pollen J30.1 ; Screening for breast cancer Z12.31 ; Chest pain at rest R07.9 ; Restless leg syndrome G25.81 ; Essential (primary) hypertension I10 and Depressed F32.9 [facility] [address] [address] August, Fibromyalgia M79.7 [facility] [id number] [place] [address] 92091- 2006 August, [facility] [id number] [place] [address] 75898- 5079 August, [facility] [id number] [place] [address] 75587- 7757 August, [address] R93.8 [facility] [id number] [place] [address] 48444- 7144 August, Generalized anxiety disorder F41.1 and Major depressive disorder, recurrent episode with anxious distress F33.9 [place] [id number] [place] [address] 29393- [address] August, [address] R93.8 [place] [id number] [place] [address] 13814- 9662 Jul, [facility] [id number] [place] [address] 75623- 5261 Jul, Chronic kidney disease, stage 4 (severe) N18.4 [facility] [id number] [place] [address] 27036- 4665 Jul, [place] [id number] [place] [address] 09117- 6003 Jul, Restless leg G25.81 ; Mixed stress and urge urinary incontinence N39.46 and Fibromyalgia M79.7 [facility] [id number] [place] [address] 72783- 7042 Jul, Chronic kidney disease, stage 4 (severe) N18.4 [facility] [id number] [place] [address] 53844- 1114 Jun, Orthostatic hypotension I95.1 ; Chronic kidney disease, stage 4 (severe) N18.4 ; Chest wall discomfort R07.89 and Body mass index (BMI) of 40.0-44.9 in adult Z68.41 [facility] [id number] [place] [address] 52310- 2815 Jun, [facility] [id number] [place] [address] 54663- 4707 Jun, Orthostatic hypotension I95.1 [facility] [address] 95[address]- 6600 Jun, [facility] [id number] [place] [address] 33151 -6656 Jun, Orthostatic hypotension I95.1 ; Dysuria R30.0 and Acute cystitis without hematuria N30.00 [facility] [id number] [place] [address] 01712- 1897 Jun, [facility] [address] 0[address]- 3430 Jun, Chronic kidney disease, stage 4 (severe) N18.4 [facility] [id number] [place] [address] 06520- 2101 Jun, Fibromyalgia M79.7 [facility] [id number] [place] [address] 23924- 2839 Jun, [facility] [id number] [place] [address] 99601- 0402 Jun, [facility] [id number] [place] [address] 25774- [address] May, [address] R93.8 and Stage 3 chronic kidney disease N18.3 [facility] [id number] [place] [address] 09252- 9943 May, Chronic kidney disease, stage 4 (severe) N18.4 [facility] [id number] [place] [address] 66493- 3346 May, Chronic kidney disease, stage 4 (severe) N18.4 [place] [address] [place] [address] 39007- [address] May, [address] R93.8 [facility] [id number] [place] [address] 24979- 4055 May, [facility] [id number] [place] [address] 09461- 1696 May, [facility] [id number] [place] [address] 05217- 2537 May, Generalized anxiety disorder F41.1 and Major depressive disorder, recurrent episode with anxious distress F33.9 [place] [id number] [place] [address] 24770- 7116 May, Mood disorder F39 [place] [facility] [id number] [place] [address] 72640- 6455 Apr, [place] [id number] [place] [address] 39639- 6279 Apr, Infected skin lesion L08.9 and Muscle strain of right shoulder region, initial encounter S46.911A [place] [id number] [place] [address] 14923- 5660 Apr, Generalized anxiety disorder F41.1 and Major depressive disorder, recurrent episode with anxious distress F33.9 [place] [address] [place] [address] 60421- 7227 Apr, [facility] [address] [place] [address] 32380- 0479 Apr, Recent urinary tract infection Z87.440 and Hypothyroid E03.9 [facility] [address] [place] [address] 35073- 4012 Apr, Generalized anxiety disorder F41.1 and Major depressive disorder, recurrent episode with anxious distress F33.9 [place] [address] [place] [address] 20744- 4626 Apr, Recent urinary tract infection Z87.440 [facility] [address] [address]- 5910 Mar, [facility] [address] [place] [address] 93769 -9706 Mar, Dysuria R30.0 ; Acute cystitis without hematuria N30.00 and BMI 40.0-44.9, adult Z68.41 [place] [id number] [place] [address] 43882- 8409 Mar, [place] [id number] [place] [address] 39556- 8116 Mar, [place] [id number] [place] [address] 42758- 7964 Mar, Generalized anxiety disorder F41.1 and Major depressive disorder, recurrent episode with anxious distress F33.9 [place] [facility] [id number] [place] [address] 78854- 4466 Feb, Conjunctivitis, bacterial H10.9 [place] [id number] [place] [address] 47056- 0313 Feb, [facility] [place] [address] [place] [address] 64128 -6054 Feb, Conjunctivitis, bacterial H10.9 [place] [address] [place] [address] 62339- 3362 Feb, [facility] [address] [place] [address] 40664 -2020 Feb, Dysuria R30.0 ; Acute cystitis N30.00 and BMI 40.0-44.9, adult Z68.41 [place] [facility] [address] [place] [address] 16334- 5537 08 Feb, 2017 [facility] [address] [place] [address] 93567- 9146 Feb, Generalized anxiety disorder F41.1 and Major depressive disorder, recurrent episode with anxious distress F33.9 [place] [id number] [place] [address] 20613- 6605 Feb, Mood disorder F39 and BMI 40.0-44.9, adult Z68.41 [place] [id number] [place] [address] 78924- 1624 Jan, [place] [address] 0[address]- 2640 Jan, [place] [facility] [address] 67299- 4199 Jan, Hypothyroid E03.9 [place] [facility] [address] 41253- 1662 Jan, [place] [facility] [address] 47595- 3820 Jan, Chronic kidney disease, unspecified N18.9 ; Hypokalemia E87.6 ; Essential (primary) hypertension I10 ; Fibromyalgia M79.7 ; Coronary artery disease involving [place] coronary artery of [place] heart, angina presence unspecified I25.10 ; Hypothyroid E03.9 and Encounter for immunization Z23 [facility] [facility] [id number] [place] [address] 17625- 4725 Jan, Hypothyroid E03.9 [facility] [facility] [id number] [place] [address] 18520- 2064 Jan, [place] [id number] [place] [address] 01962- 9006 Dec, Vitamin D deficiency E55.9 [place] [facility] [id number] [place] [address] 33426- 2963 Dec, Primary osteoarthritis of left knee M17.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 [place] [facility] [id number] [place] [address] 56281- 3490 Dec, Fibromyalgia M79.7 [place] [address], [place] [address]- 0216 18 Sep, 2017 Mood disorder F39 [facility] [id number] [place] [address] 45526- 0103 13 Dec, 2016 [facility] [address] [place] [address] 82791- 4568 13 Dec, 2016 Generalized anxiety disorder F41.1 and Major depressive disorder, recurrent episode with anxious distress F33.9 [facility] [address] [place] [address] 18142- 1759 11 Dec, 2016 [facility] [id number] [place] [address] 48686- 2225 08 Dec, 2016 Streptococcal meningitis G00.2 [facility] [id number] [place] [address] 63299- 8364 07 Dec, 2016 Streptococcal meningitis G00.2 [facility] [address] [place] [address] 36108- 6567 07 Dec, 2016 [facility] [address] [place] [address] 34414- 1194 06 Dec, 2016 [facility] [address] [place] [address] 39031- 3144 06 Dec, 2016 Streptococcal meningitis G00.2 [facility] [address] [place] [address] 12445- 5687 06 Dec, 2016 Major depressive disorder, recurrent episode with anxious distress F33.9 [facility] [address], [place] [address]- 0517 Nov, Fever, unspecified fever cause R50.9 [facility] [address] [place] [address] 57859- 5713 24 Nov, 2016 [facility] [address] [place] [address] 47564- 6606 16 Nov, 2016 Hypothyroid E03.9 [facility] [id number] [place] [address] 24638- 2622 Nov, Generalized anxiety disorder F41.1 and Major depressive disorder, recurrent episode with anxious distress F33.9 [facility] [id number] [place] [address] 75278- 6684 Nov, [facility] [address] [place] [address] [id number] Oct, Dental examination Z01.20 [facility] [id number] [place] [address] 66373- 0972 Oct, Generalized anxiety disorder F41.1 and Major depressive disorder, recurrent episode with anxious distress F33.9 [facility] [id number] [place] [address] 32914- 9465 Oct, Chronic kidney disease, stage 4 (severe) N18.4 [place] [id number] [place] [address] 79391- 2292 Oct, [facility] [id number] [place] [address] 48575- 6231 Oct, Fibromyalgia M79.7 [facility] [id number] [place] [address] 05366- 3361 Oct, [facility] [id number] [place] [address] 72999- 2134 Oct, Generalized anxiety disorder F41.1 ; Major depressive disorder, recurrent episode with anxious distress F33.9 and Bipolar disorder, current episode manic without psychotic features F31.10 [facility] [address] [place] [address] 59019- 3549 Sep, [facility] [id number] [place] [address] 82727- 0406 Sep, [facility] [id number] [place] [address] 71089- 7303 Sep, Vitamin D deficiency E55.9 [facility] [id number] [place] [address] 99043- 1019 Sep, Vitamin D deficiency E55.9 [place] [address] [place] [address] 34522- 2969 Sep, [place] [id number] [place] [address] 84465- 3964 Sep, Chronic kidney disease, stage 4 (severe) N18.4 ; Hypothyroid E03.9 ; Restless leg G25.81 ; Fibromyalgia M79.7 ; Essential ( primary) hypertension I10 ; Vitamin D deficiency E55.9 ; Dyspepsia R10.13 ; Anemia in chronic kidney disease D63.1 ; Chronic kidney disease, unspecified N18.9 ; Coronary artery disease involving [place] coronary artery of [place] heart , angina presence unspecified I25.10 ; Screening breast examination Z12.39 and Low back pain M54.5 [place] [id number] [place] [address] 77175- 3691 August, Generalized anxiety disorder F41.1 and Major depressive disorder, recurrent episode with anxious distress F33.9 [place] [id number] [place] [address] 41911- 2466 August, Generalized anxiety disorder F41.1 and Major depressive disorder, recurrent episode with anxious distress F33.9 [place] [id number] [place] [address] 81396- 5609 August, Fibromyalgia M79.7 [place] [id number] [place] [address] 49964- 6052 Jul, Generalized anxiety disorder F41.1 and Major depressive disorder, recurrent episode with anxious distress F33.9 [place] [address] [place] [address] 42461- 7629 Jul, Fibromyalgia M79.7 [place] [id number] [place] [address] 36945- 4237 Jul, Generalized anxiety disorder F41.1 [place] [id number] [place] [address] 24867- 1378 May, [place] [id number] [place] [address] 03234- 6567 May, Hypothyroid E03.9 [place] [id number] [place] [address] 90293- 4675 May, Chronic kidney disease, stage 4 (severe) N18.4 ; Hypothyroid E03.9 ; Restless leg G25.81 ; Fibromyalgia M79.7 ; Essential ( primary) hypertension I10 ; Vitamin D deficiency E55.9 ; Dyspepsia R10.13 ; Acute non-recurrent maxillary sinusitis J01.00 ; Anemia in chronic kidney disease D63.1 ; Chronic kidney disease, unspecified N18.9 and Coronary artery disease involving [place] coronary artery of [place] heart, angina presence unspecified I25.10 [place] [id number] [place] [address] 92842- 8463 May, Vitamin D deficiency, unspecified E55.9 [place] [id number] [place] [address] 96332- 7157 May, Generalized anxiety disorder F41.1 and Major depressive disorder, recurrent episode with anxious distress F33.9 [place] [id number] [place] [address] 86527- 7190 Apr, Pain in right knee M25.561 and Pain in left knee M25.562 [place] [id number] [place] [address] 81434- 7891 Apr, [place] [id number] [place] [address] 78925- 7982 Apr, [place] [id number] [place] [address] 59963- 2916 Apr, [place] [id number] [place] [address] 60142- 0881 Mar, Generalized anxiety disorder F41.1 and Major depressive disorder, recurrent episode with anxious distress F33.9 [place] [address] 66075- 8935 Mar, Generalized anxiety disorder F41.1 and Major depressive disorder, recurrent episode with anxious distress F33.9 [place] [id number] [place] [address] 45527- 2739 Mar, [facility] [id number] [place] [address] 35532- 0323 Mar, [place] [address] 02324- 5348 Mar, [place] [address] 93897- 4454 Mar, Asthma J45.909 and Fibromyalgia M79.7 [place] [address] 51378- 7004 Mar, Chronic kidney disease, stage 4 (severe) N18.4 ; Vitamin D deficiency E55.9 and Essential (primary) hypertension I10 [place] [id number] [place] [address] 55551- 1681 Feb, [place] [id number] [place] [address] 73479- 4892 Feb, Dysuria R30.0 ; Mixed stress and urge urinary incontinence N39.46 ; Fibromyalgia M79.7 and Chronic kidney disease, stage IV (severe) N18.4 [place] [id number] [place] [address] 49408- 4161 Feb, Chronic kidney disease, stage 4 (severe) N18.4 [place] [id number] [place] [address] 13210- 2180 Feb, Chronic kidney disease, stage 4 (severe) N18.4 [place] [id number] [place] [address] 99088- 0864 Feb, [place] [id number] [place] [address] 73675- 7666 Feb, Vitamin D deficiency, unspecified E55.9 [place] [address] [place] [address] 36555- 7434 Jan, [facility] [id number] [place] [address] 15519- 3263 Jan, [facility] [id number] [place] [address] 53184- 1325 Dec, [place] [address] [phone]- [address] Dec, Chronic kidney disease, stage 4 (severe) N18.4 [place] [id number] [place] [address] 48517- 5873 Dec, Dysthymic disorder F34.1 and Generalized anxiety disorder F41.1 [place] [id number] [place] [address] 83211- 8877 Dec, [place] [id number] [place] [address] [phone]- 7996 Dec, [place] [id number] [place] [address] 14285- 9451 Dec, Dysthymic disorder F34.1 and Generalized anxiety disorder F41.1 [place] [id number] [place] [address] 25770- 3571 Dec, Dysuria R30.0 ; Chronic kidney disease, stage 4 (severe) N18.4 ; Hypertension I10 ; Dyspepsia R10.13 ; Yeast dermatitis B37.2 ; Palpitations R00.2 ; Hypothyroid E03.9 ; Functional 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 and Other seasonal allergic rhinitis J30.2 [facility] [id number] [place] [address] [phone] Dec, [facility] [id number] [place] [address] [phone] -[phone] Nov, Dysuria R30.0 and Stress incontinence N39.3 [place] [id number] [place] [address] 28227- 7327 Nov, [facility] [id number] [place] [address] 87678- 3469 Nov, [facility] [id number] [place] [address] 20513- 5409 Nov, Osteoarthritis of knees, bilateral M17.0 [facility] [id number] [place] [address] 78362- 9788 Nov, Dysthymic disorder F34.1 and Generalized anxiety disorder F41.1 [place] [address] [address] [id number] [place] [address] 86877- 5069 Nov, [place] [id number] [place] [address] 45017- 4654 Nov, [place] [id number] [place] [address] 23271- 7842 Nov, Urgency of urination R39.15 [place] [id number] [place] [address] 29896- 7623 Nov, [place] [id number] [place] [address] 38307- 0086 Nov, Chronic kidney disease, stage 4 (severe) N18.4 [place] [id number] [place] [address] 17606- 3972 Oct, Hypertension I10 ; Coronary artery disease involving tun[place] coronary artery of [place] heart, angina presence unspecified I25.10 ; Palpitations R00.2 ; Hypothyroid E03.9 ; Right foot pain M79.671 ; Functional 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 and Other seasonal allergic rhinitis J30.2 [facility] [id number] [place] [address] 83745- 5516 Oct, Dysthymic disorder F34.1 and Generalized anxiety disorder F41.1 [facility] [id number] [place] [address] 70561- 7174 Sep, [facility] [address] [address] [address] 4111 Sep, [facility] [id number] [place] [address] 47512- 9389 Sep, [facility] [id number] [place] [address] 39783- 3516 Sep, [place] [id number] [place] [address] 30697- 3889 Sep, [place] [id number] [place] [address] 36077- 9363 Sep, Dysthymic disorder F34.1 and Generalized anxiety disorder F41.1 [place] [id number] [place] [address] 35092- 8309 16 Sep, 2015 Asthma with acute exacerbation in adult J45.901 ; Dysuria R30.0 ; Chronic kidney disease, stage 4 (severe) N18.4 and History of anemia Z86.2 [place] [id number] [place] [address] 00712- 1964 2015 Generalized anxiety disorder F41.1 and Dysthymic disorder F34.1 [place] [id number] [place] [address] 53049- 3231 August, Screening breast examination Z12.39 and Acute recurrent maxillary sinusitis J01.01 [place] [address] [place] [address] 82565- 9454 August, Osteoarthritis of knees, bilateral M17.0 [place] [address] [place] [address] 29985- 1203 August, Chronic kidney disease, stage 4 (severe) N18.4 ; Acute non- recurrent maxillary sinusitis J01.00 ; Urinary problem R39.89 ; Bowel habit changes R19.4 ; Functional 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 and History of colon polyps Z86.010 [place] [address] [address]- 8293 Jul, Dysthymic disorder F34.1 and Generalized anxiety disorder F41.1 [facility] [id number] [place] [address] 09172- 0678 Jul, [facility] [id number] [place] [address] 19569- 1597 Jul, Dysthymic disorder F34.1 ; Generalized anxiety disorder F41.1 and long-term use of drug Z79.899 [facility] [id number] [place] [address] 67429- 2754 Jul, [facility] [id number] [place] [address] 35962- 2280 Jun, [place] [id number] [place] [address] 77468- 3365 Jun, [place] [id number] [place] [address] 06518- 7175 May, [place] [id number] [place] [address] 94964- 1157 May, Dysthymic disorder F34.1 and Generalized anxiety disorder F41.1 [place] [id number] [place] [address] 87103- 3394 Apr, Kidney disease N28.9 [place] [id number] [place] [address] 45767- 5863 Apr, Generalized anxiety disorder F41.1 and Dysthymic disorder F34.1 [place] [id number] [place] [address] 32831- 2784 Apr, Chronic kidney disease, stage 4 (severe) N18.4 [place] [id number] [place] [address] 33638- 6400 Apr, Generalized anxiety disorder F41.1 ; Major depression, recurrent F33.9 and Sleep disturbance G47.9 [place] [id number] [place] [address] 78395- 2972 Mar, Generalized anxiety disorder F41.1 and Dysthymic disorder F34.1 [facility] [id number] [place] [address] 26559- 2149 Mar, Generalized anxiety disorder F41.1 ; Dysthymic disorder F34.1 and Insomnia G47.00 [facility] [id number] [place] [address] 34088- 6442 Mar, [facility] [address] 13848- 6445 Mar, [facility] [id number] [place] [address] 33410- 0684 Mar, Osteoarthritis of knees, bilateral M17.0 [facility] [address] 20742- 8459 Mar, Hypertension I10 ; Hypothyroid E03.9 ; Dysthymic disorder F34.1 ; Chronic kidney disease, stage 4 (severe) N18.4 and Nausea & vomiting R11.2 [place] [id number] [place] [address] 69342- 0585 Mar, Generalized anxiety disorder F41.1 ; Dysthymic disorder F34.1 and Insomnia G47.00 [facility] [id number] [place] [address] 34111- 0167 Mar, Dehydration E86.0 ; Chronic kidney disease, stage 4 (severe ) N18.4 and Nausea & vomiting R11.2 [facility] [address] [place] [address] 60028 -5812 08 Mar, 2015 Gastroenteritis K52.9 [facility] [id number] [place] [address] 15713- 2373 Mar, [facility] [id number] [place] [address] 94748- 4629 Mar, [facility] [id number] [place] [address] 20934- 6360 Feb, Dysthymic disorder F34.1 and Generalized anxiety disorder F41.1 [place] [id number] [place] [address] 92077- 9937 Jan, UTI (urinary tract infection) N39.0 ; Asthma J45.909 ; Coronary artery disease involving [place] coronary artery of [place] heart, angina presence unspecified I25.10 ; Hypertension I10 ; Hypothyroid E03.9 ; Vitamin D deficiency E55.9 ; Insomnia G47.00 ; Palpitations R00.2 ; Depressed F32.9 ; Restless leg G25.81 and Anxiety F41.9 [place] [id number] [place] [address] 41491- 1980 Jan, Dysthymic disorder F34.1 and Generalized anxiety disorder F41.1 [place] [id number] [place] [address] 66212- 4119 Jan, [place] [address] 88679- 3009 30 Dec, 2014 [place] [id number] [place] [address] 63751- 4004 28 Dec, 2014 Alkalosis 276.3 ; Chronic kidney disease, 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.4 ; Hyperpotassemia 276.7 ; Secondary hyperparathyroidism, renal 588.81 ; Proteinuria 791.0 ; Unspecified vitamin D deficiency 268.9 ; Anemia in chronic kidney disease 285.21 ; Other and unspecified hyperlipidemia 272.4 ; Hypertension, essential, benign 401.1 and Chronic kidney disease (CKD), stage III (moderate) 585.3 [place] [address] [place] [address] 49299- 0443 Dec, [address] 92006- 5576 Dec, Depressive disorder, not elsewhere classified 311 and Generalized anxiety disorder 300.02 [place] [id number] [place] [address] 90066- 4416 Dec, [place] [address] 13699- 0080 Dec, [place] [address] [place] [address] 74572- 6776 Nov, Depressive disorder, not elsewhere classified 311 and Generalized anxiety disorder 300.02 [place] [id number] [place] [address] 39749- 6939 Nov, Arthritis of both knees 716.[address] 28333- 6755 Nov, PAF (paroxysmal atrial fibrillation) 427.31 ; CAD (coronary artery disease) 414.00 ; Chest pain 786.50 and Chronic kidney disease (CKD) stage G4/A1, severely decreased glomerular filtration rate (GFR) between 15-29 mL/min/1.73 square meter and albuminuria creatinine ratio less than 30 mg/g 585.4 [id number] [place] [address] 88349- 1214 Oct, Coronary atherosclerosis of unspecified type of vessel, tun[place] or graft 414.00 ; Chronic kidney disease, 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.4 ; Hypertension 401.9 and Edema 782.3 [place] [id number] [place] [address] 58460- 8165 Oct, Depressive disorder, not elsewhere classified 311 and Generalized anxiety disorder 300.02 [place] [id number] [place] [address] 40248- 6220 Oct, Depressive disorder, not elsewhere classified 311 and Generalized anxiety disorder 300.02 [place] [id number] [place] [address] 12554- 2904 Oct, [place] [id number] [place] [address] 00004- 6369 Oct, [place] [id number] [place] [address] 60420- 7477 Sep, [place] [id number] [place] [address] 86531- 1806 Sep, Chronic kidney disease, 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.4 [facility] [id number] [place] [address] 23848- 9666 Sep, [facility] [id number] [place] [address] 74325- 8350 Sep, Coronary atherosclerosis of unspecified type of vessel, [place] or graft 414.00 ; Hypertension 401.9 ; Edema 782.3 and Hypothyroidism 244.9 [place] [address] 41578- 7279 Sep, Coronary atherosclerosis of unspecified type of vessel, [place] or graft 414.00 ; Hypertension 401.9 ; Fibromyalgia 729.1 ; Edema 782.3 ; Hypothyroidism 244.9 and Anemia 285.9 [place] [address] 02475- 9070 Sep, Anxiety disorder, unspecified 300.00 and Depressive disorder , not elsewhere classified 311 [place] [address] 93309- 2526 Sep, [facility] [address] 43064- 9480 August, Generalized anxiety disorder 300.02 [place] [id number] [place] [address] 67968- 2667 August, Closed fracture of lateral malleolus 824.2 [place] [id number] [place] [address] 84512- 1222 Jul, [facility] [id number] [place] [address] 22497- 7748 Jul, [facility] [id number] [place] [address] 39309- 5919 Jun, [place] [address] 61147- 7484 Jun, [facility] [id number] [place] [address] 98250- 4503 Jun, [facility] [place] [facility] [address] [id number] [place] [address]- 8280 Jun, [facility] [place] [facility] [address] [id number] [place] [address]- 2166 Jun, [facility] [place] [facility] [address] [id number] [place] [address]- 5332 Jun, [facility] [place] [facility] [address] [id number] [place] [address]- 1319 May, 2014 [facility] [place] [facility] [address] [id number] [place] [address]- 3549 May, 2014 [facility] [place] [facility] [address] [id number] [place] [address]- 9399 May, 2014 [facility] [place] [facility] [address] [id number] [place] [address]- 9865 May, 2014 [facility] [place] [facility] [address] [id number] [place] [address]- 6342 16 May, 2014 [facility] [place] [facility] [address] [id number] [place] [address]- 2229 16 May, 2014 [facility] [place] [facility] [address] [id number] [place] [address]- 5584 May, 2014 [facility] [place] [facility] [address] [id number] [place] [address]- 6024 May, 2014 [facility] [place] [facility] [address] [id number] [place] [address]- 8443 May, 2014 [facility] [place] [facility] [address] [id number] [place] [address]- 0795 May, [facility] [place] [facility] [address] [id number] [place] [address]- 3152 Apr, [facility] [place] [facility] [address] [id number] [place] [address]- 5158 Apr, [facility] [place] [facility] [address] [id number] [place] [address]- 5064 Mar, [facility] [place] [facility] [address] [id number] [place] [address]- 2418 Mar, [facility] [place] [facility] [address] [id number] [place] [address]- 8450 Mar, [facility] [place] [facility] [address] [id number] [place] [address]- 9746 Mar, [facility] [place] [facility] [address] [id number] [place] [address]- 3017 Mar, [facility] [place] [facility] [address] [id number] [place] [address]- 2670 Mar, [facility] [place] [facility] [address] [id number] [place] [address]- 6236 Mar, [facility] [place] [facility] [address] [id number] [place] [address]- 1054 Feb, [facility] [place] [facility] [address] [id number] [place] [address]- 2320 Feb, [facility] [place] [facility] [address] [id number] [place] [address]- 9860 Feb, [facility] [place] [facility] [address] [facility] [id number] [place] [address]- 0927 Jan, [facility] [place] [facility] [address] [id number] [place] [address]- 9917 Jan, [facility] [place] [facility] [address] [id number] [place] [address]- 0204 Jan, [facility] [place] [facility] [address] [id number] [place] [address]- 5313 Jan, [facility] [place] [facility] [address] [id number] [place] [address]- 8353 Jan, [facility] [place] [facility] [address] [id number] [place] [address]- 3502 Jan, [facility] [place] [facility] [address] [id number] [place] [address]- 6748 Jan, [facility] [place] [facility] [address] [id number] [place] [address]- 6966 Jan, [facility] [place] [facility] [address] [id number] [place] [address]- 2093 Jan, [facility] [place] [facility] [address] [id number] [place] [address]- 5835 Jan, [facility] [place] [facility] [address] [id number] [place] [address]- 6526 Nov, [facility] [place] [facility] [address] [id number] [place] [address]- 9953 Nov, [facility] [place] [facility] [address] [id number] [place] [address]- 8099 Nov, [facility] [place] [facility] [address] [id number] [place] [address]- 2023 Oct, [facility] [place] [facility] [address] [id number] [place] [address]- 2992 Oct, [facility] [place] [facility] [address] [id number] [place] [address]- 5504 Oct, [facility] [place] [facility] [address] [id number] [place] [address]- 8545 Oct, [facility] [place] [facility] [address] [id number] [place] [address]- 2882 Oct, [facility] [place] [facility] [address] [id number] [place] [address]- 9482 Oct, [facility] [place] [facility] [address] [id number] [place] [address]- 4260 Oct, [facility] [place] [facility] [address] [id number] [place] [address]- 5520 Oct, [facility] [place] [facility] [address] [id number] [place] [address]- 8263 Oct, [facility] [place] [facility] [address] [id number] [place] [address]- 2153 Sep, [facility] [place] [facility] [address] [id number] [place] [address]- 5045 Sep, [facility] [place] [facility] [address] [id number] [place] [address]- 4969 Sep, [facility] [place] [facility] [address] [id number] [place] [address]- 6663 Sep, [facility] [place] [facility] [address] [id number] [place] [address]- 8544 Sep, [facility] [place] [facility] [address] [id number] [place] [address]- 2359 Sep, [facility] [place] [facility] [address] [id number] [place] [address]- 9063 Sep, [facility] [place] [facility] [address] [id number] [place] [address]- 3934 Sep, [facility] [place] [facility] [address] [id number] [place] [address]- 3573 Sep, [facility] [place] [facility] [address] [id number] [place] [address]- 3811 August, [facility] [place] [facility] [address] [id number] [place] [address]- 7984 August, [facility] [place] [facility] [address] [id number], [place] [address]- 1120 August, [facility] [place] [facility] [address] [id number] [place] [address]- 0288 August, [facility] [place] [facility] [address] [id number] [place] [address]- 9764 August, [facility] [place] [facility] [address] [id number] [place] [address]- 6747 August, [facility] [place] [facility] [address] [id number] [place] [address]- 5315 Jul, [facility] [address] [id number] [place] [address]- 9390 Jul, [facility] [place] [facility] [address] [id number] [place] [address]- 3332 Jul, [facility] [place] [facility] [address] [id number] [place] [address]- 7100 Jul, [facility] [place] [facility] [address] [id number] [place] [address]- 7205 Jul, [facility] [place] [facility] [address] [id number] [place] [address]- 9574 Jul, [facility] [place] [facility] [address] [id number] [place] [address]- 7088 Jun, [facility] [place] [facility] [address] [id number] [place] [address]- 4241 Jun, [facility] [place] [facility] [address] [id number] [place] [address]- 6454 May, [facility] [place] [facility] [address] [id number] [place] [address]- 7985 May, [facility] [address] [id number] [place] [address]- 6829 May, [facility] [place] [facility] [address] [id number] [place] [address]- 8644 May, [facility] [place] [facility] [address] [id number] [place] [address]- 2427 Apr, [facility] [place] [facility] [address] [id number] [place] 5[address] Apr, [facility] [place] [facility] [address] [id number] [place] [address]- 1806 Mar, [facility] [place] [facility] [address] [id number] [place] 5707 Mar, [facility] [place] [facility] [address] [id number] [place] [address]- 9606 Mar, [facility] [place] [facility] [address] [id number] [place] [address]- 3043 Mar, [facility] [place] [facility] [address] [id number] [place] [address]- 0400 Mar, [facility] [place] [facility] [address] [id number] [place] [address]- 9899 Mar, [facility] [place] [facility] [address] [id number] [place] [address]- 0329 Feb, [facility] [place] [facility] [address] [id number] [place] [address]- 1418 Feb, [facility] [place] [facility] [address] [id number] [place] [address]- 3090 Feb, [facility] [place] [facility] [address] [id number], [place] [address]- 3562 Feb, [facility] [place] [facility] [address] [id number] [place] [address]- 9111 Feb, [facility] [place] [facility] [address] [id number], [place] [address]- 0605 Feb, [facility] [place] [facility] [address] [id number], [place] [address]- 0911 Jan, [facility] [place] [facility] [address] [id number], [place] [address]- 2591 24 Jan, 2013 [facility] [place] [facility] [address] [id number] [place] [address]- 9341 Jan, [facility] [place] [facility] [address] [id number], [place] [address]- 6240 Jan, [facility] [place] [facility] [address] [id number], [place] [address]- 2027 Jan, [facility] [place] [facility] [address] [id number] [place] [address]- 0201 Jan, [facility] [place] [facility] [address] [id number] [place] [address]- 7553 Dec, [facility] [place] [facility] [address] [id number] [place] [address]- 2104 Dec, [facility] [place] [facility] [address] [id number] [place] [address]- 3197 Nov, [facility] [place] [facility] [address] [id number] [place] [address]- 8261 Nov, [facility] [place] [facility] [address] [id number] [place] [address]- 4824 Oct, [facility] [place] [facility] [address] [id number] [place] [address]- 4109 Oct, [facility] [place] [facility] [address] [id number] [place] [address] Oct, [facility] [place] [facility] [address] [id number] [place] [address] Oct, [facility] [place] [facility] [address] [id number] [place] [address] Oct, [facility] [place] [facility] [address] [id number] [place] [address] Oct, [facility] [place] [facility] [address] [id number] [place] [address] Sep, [facility] [place] [facility] [address] [id number] [place] [address] Sep, [facility] [place] [facility] [address] [id number] [place] [address] Sep, [facility] [place] [facility] [address] [id number] [place] [address] Sep, [facility] [place] [facility] [address] [id number] [place] [address] August, [facility] [place] [facility] [address] [id number] [place] [address] August, [facility] [address] [id number] [place] [address] August, [facility] [address] [id number] [place] [address] August, [facility] [address] [id number] [place] [address] August, [facility] [address] [id number] [place] [address] Jul, [facility] [address] [id number] [place] [address] Jul, [facility] [address] [id number] [place] [address] Jul, [facility] [address] [id number] [place] [address] Jul, [facility] [address] [id number] [place] [address] Jul, [facility] [address] [id number] [place] [address] Jul, [facility] [address] [id number] [place] [address] Jul, [facility] [address] [id number], [place] [address] Jul, [facility] [address] [id number] [place] [address] Jul, [facility] [address] [id number] [place] [address] Jul, [facility] [address] [id number] [place] [id number] Jun, [facility] [address] [id number] [place] [address] Jun, [facility] [address] [id number] [place] [address] Jun, [facility] [place] [facility] [address] [id number] [place] [address]- [address] Jun, [facility] [place] [facility] [address] [id number] [place] [address] Jun, [facility] [place] [facility] [address] [id number] [place] [address] May, [facility] [address] [id number] [place] [address] May, [facility] [place] [facility] [address] [id number] [place] [address] May, [facility] [address] [id number] [place] [address] Apr, [facility] [place] [facility] [address] [id number] [place] [address] Apr, [facility] [place] [facility] [address] [id number] [place] [address] Apr, [facility] [place] [facility] [address] [id number] [place] [address]- [address] Apr, [facility] [place] [facility] [address] [id number] [place] [address]- [address] Apr, [facility] [place] [facility] [address] [id number] [place] [address] Apr, [facility] [place] [facility] [address] [id number] [place] [address] Mar, [facility] [place] [facility] [address] [id number] [place] [address] Mar, [facility] [place] [facility] [address] [id number] [place] [address] Mar, [facility] [place] [facility] [address] [id number] [place] [address] Mar, [facility] [place] [facility] [address] [id number] [place] [address] Feb, [facility] [place] [facility] [address] [id number] [place] [address] Feb, [facility] [place] [facility] [address] [id number] [place] [address]- [address] Feb, [facility] [place] [facility] [address] [id number] [place] [address] Feb, [facility] [place] [facility] [address] [id number] [place] [address] Feb, [facility] [place] [facility] [address] [id number] [place] [address]- [address] Feb, [facility] [place] [facility] [address] [id number] [place] [address]- [address] Feb, [facility] [place] [facility] [address] [id number] [place] [address] Feb, [facility] [place] [facility] [address] [id number] [place] [address] Feb, [facility] [place] [facility] [address] [facility] [id number] [place] [address] Feb, [facility] [place] [facility] [address] [id number] [place] [address] Feb, [facility] [place] [facility] [address] [id number], [place] [address] Feb, [facility] [place] [facility] [address] [id number] [place] [address] Feb, [facility] [place] [facility] [address] [facility] [id number] [place] [address] Feb, [facility] [place] [facility] [address] [id number], [place] [address] Feb, [facility] [place] [facility] [address] [id number] [place] [address] Feb, [facility] [place] [facility] [address] [id number] [place] [address] 18[address] Jan, [facility] [place] [facility] [address] [id number] [place] [address] 8610 Jan, [facility] [place] [facility] [address] [id number] [place] [address], [place] [address] 3470 Jan, [facility] [place] [facility] [address] [id number] [place] [address] 99[address] Jan, [facility] [place] [facility] [address] [id number] [place] [address] Jan, [facility] [place] [facility] [address] [id number] [place] [address] Jan, [facility] [place] [facility] [address] [id number] [place] [address] 9[address] Jan, [facility] [place] [facility] [address] [id number] [place] [address] 9762 Jan, [facility] [place] [facility] [address] [id number] [place] [address] 8[address] Jan, [facility] [place] [facility] [address] [id number] [place] [address] 9728 Jan, [facility] [place] [facility] [address] [id number], [place] [address] Jan, [facility] [place] [facility] [address] [id number] [place] [address]- 0278 Jan, [facility] [place] [facility] [address] [id number] [place] [address] 6990 Dec, [facility] [place] [facility] [address] [id number] [place] [address] 9421 Dec, [facility] [place] [facility] [address] [id number], [place] [address] 24 Sep, 2011 [facility] [place] [facility] [address] [id number] [place] [address] 2546 23 Sep, 2011 [facility] [place] [facility] [address] [id number] [place] [address] 2546 22 Sep, 2011 [facility] [place] [facility] [address] [id number] [place] [address] 2546 21 Sep, 2011 [facility] [place] [facility] [address] [id number] [place] [address] 2546 20 Sep, 2011 [facility] [place] [facility] [address] [id number] [place] [address] 2546 20 Sep, 2011 [facility] [place] [facility] [address] [id number] [place] [address]- 3036 07 Dec, 2011 [facility] [place] [facility] [address] [id number] [place] [address]- 7822 06 Sep, 2011 [facility] [place] [facility] [address] [id number] [place] [address]- 1398 06 Dec, 2011 [facility] [place] [facility] [address] [id number] [place] [address]- 3264 05 Dec, 2011 [facility] [place] [facility] [address] [id number] [place] [address]- 6675 23 Nov, 2011 [facility] [place] [facility] [address] [id number] [place] [address]- 6658 17 Nov, 2011 [facility] [place] [facility] [address] [id number] [place] [address]- 6605 13 Nov, 2011 [facility] [place] [facility] [address] [id number] [place] [address]- [address]44 10 Nov, 2011 [facility] [place] [facility] [address] [id number] [place] [address]- 0703 08 Nov, 2011 [facility] [place] [facility] [address] [id number] [place] [address]- 8792 07 Nov, 2011 [facility] [place] [facility] [address] [id number] [place] [address]- [address] Nov, [facility] [address] [id number] [place] [address] Nov, [facility] [place] [facility] [address] [id number] [place] [address] 2546 Oct, [facility] [address] [id number] [place] [address] Oct, [facility] [address] [id number] [place] [address]- [address] Oct, [facility] [address] [id number] [place] [address]- 0693 Oct, [facility] [address] [id number] [place] [address]- 0376 Oct, [facility] [address] [id number] [place] [address]- 2046 Oct, [facility] [address] [id number] [place] [address] 1330 Oct, [facility] [address] [id number] [place] [address]- 7986 Sep, [facility] [address] [id number] [place] [address]- 0996 Sep, [facility] [address] [id number] [place] [address]- 2546 August, [facility] [address] [id number] [place] [address]- 2546 August, [facility] [place] [facility] [address] [id number] [place] [address]- [address] August, [facility] [place] [facility] [address] [id number] [place] [address]- 2546 August, [facility] [address] [id number] [place] [address] Jul, [facility] [place] [facility] [address] [id number] [place] [address]- 7257 Jul, [facility] [place] [facility] [address] [id number] [place] [address]- 8983 Jul, [facility] [place] [facility] [address] [id number] [place] [address]- 5021 Jul, [facility] [place] [facility] [address] [id number] [place] [address]- 6985 Jul, [facility] [place] [facility] [address] [id number] [place] [address]- 3934 Jul, [facility] [place] [facility] [address] [id number] [place] [address]- 7907 Jul, [facility] [place] [facility] [address] [id number] [place] [address] 9940 Jul, [facility] [place] [facility] [address] [id number] [place] [address] 3621 Jul, [facility] [place] [facility] [address] [id number] [place] [address]- 3439 Jun, [facility] [place] [facility] [address] [id number] [place] [address]- 8334 Jun, [facility] [place] [facility] [address] [id number], [place] [address]60 15 Jun, 2011 [facility] [place] [facility] [address] [id number], [place] [address]- 6[address] 14 Jun, 2011 [facility] [place] [facility] [address] [id number] [place] [address]- 5608 12 Jun, 2011 [facility] [place] [facility] [address] [id number] [place] [address]- 8329 Jun, [facility] [place] [facility] [address] [id number], [place] [address]- 4255 Jun, [facility] [place] [facility] [address] [id number], [place] [address]- [address] May, [facility] [address] [id number] [place] [address]- 7096 May, [facility] [address] [id number] [place] [address] 2546 May, [facility] [address] [id number] [place] [address] 2546 May, [facility] [address] [id number] [place] [address] 2546 May, [facility] [address] [id number] [place] [address]- 5026 Apr, [facility] [address] [id number] [place] [address]- 1126 Apr, [facility] [address] [id number] [place] [address]- 4781 Apr, [facility] [address] [id number] [place] [address]- 0603 Apr, [facility] [address] [id number] [place] [address]- 2806 Apr, [facility] [address] [id number] [place] [address]- 5975 Mar, [facility] [address] [id number] [place] [address] 2546 Mar, [facility] [address] [id number] [place] [address] 2546 Mar, [facility] [place] [facility] [address] [id number] [place] [address] 2546 Mar, [facility] [place] [facility] [address] [id number] [place] [address] 2546 Mar, [facility] [address] [id number] [place] [address] 2549 Mar, [facility] [place] [facility] [address] [id number] [place] [address]- 7801 Mar, [facility] [place] [facility] [address] [id number] [place] [address]- 0508 Feb, [facility] [place] [facility] [address] [id number] [place] [address]- 1416 Feb, [facility] [place] [facility] [address] [id number] [place] [address]- 2325 Feb, [facility] [place] [facility] [address] [id number] [place] [address]- 0627 Feb, [facility] [place] [facility] [address] [id number] [place] [address]- 7297 Jan, [facility] [place] [facility] [address] [id number] [place] [address]- 6245 Jan, [facility] [place] [facility] [address] [id number] [place] [address]- 7851 Jan, [facility] [place] [facility] [address] [id number] [place] [address]- 6199 Jan, [facility] [place] [facility] [address] [id number] [place] [address]- 0252 Nov, [facility] [place] [facility] [address] [id number] [place] [address]- 3412 Mar, [facility] [place] [facility] [address] [id number] [place] [address]- 4426 Mar, [facility] [place] [facility] [address] [id number] [place] [address]- 4979 Mar, [facility] [place] [facility] [address] [id number] [place] [address]- 7771 Mar, [facility] [place] [facility] [address] [id number] [place] [address] 2541 Mar, [facility] [place] [facility] [address] [id number] [place] [address]- 2546 Mar, [facility] [address] [facility] [id number] [place] [address]- 2546 Feb, [facility] [address] [facility] [id number], [place] [address]- 2546 Feb, [facility] [address] [facility] [id number], [place] [address]- 2546 Jan, [facility] [address] [facility] [id number], [place] [address]- 2546 Jan, [facility] [address] [facility] [id number], [place] [address]- 2546 Jan, IMMUNIZATIONS No Known Immunizations SOCIAL HISTORY Never Assessed REASON FOR VISIT PLAN OF CARE VITAL SIGNS MEDICATIONS Unknown [...] 2020 & 2007 Surgical History Bladder surgery [facility] 03/2016 Surgical History Neurotransmitter placed 10/2017 Hospitalization History Surgeries Only Hospitalization History 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
--- OUTSIDE RECORDS SUMMARY | 2018-05-29 07:45 | XMS REPORT ---
Author Author ZHANE BOSCH [facility] Address [address] [place] [address] Care Team Providers Care Caterers Helper Name Role Phone ZHANE BOSCH Unavailable PROBLEMS Type Condition ICD9-CM Code [id number] Code Onset Dates Condition Status SNOMED Code Problem Low back pain M54.5 Active 512845763 Problem Abnormal chest CT R93.8 Active 942751252 Problem Dysthymic disorder F34.1 Active 71599978 Problem Generalized anxiety disorder F41.1 Active 28416568 Problem Coronary artery disease involving nome coronary artery of nome heart, angina presence unspecified I25.10 Active 4562865634126 Problem Restless leg G25.81 Active 18277877 Problem Hypothyroid E03.9 Active 57072994 Problem Insomnia G47.00 Active 320158398 Problem Asthma J45.909 Active 198558597 Problem Chronic kidney disease, unspecified N18.9 Active 116363877 Problem Palpitations R00.2 Active 81265858 Problem Anemia in chronic kidney disease D63.1 Active [id number] Problem Depressed F32.9 Active 44611915 Problem Bipolar disorder, current episode manic without psychotic features F31.10 Active 821556373 Problem Primary osteoarthritis of left knee M17.12 Active 224680543 Problem Degenerative tear of medial meniscus of left knee M23.204 Active 967895878 Problem Chronic pain syndrome G89.4 Active 408119671 Problem Restless leg syndrome G25.81 Active 65839924 Problem History of colon polyps Z86.010 Active 057331558 Problem Functional 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 Active 14195980 Problem Chronic kidney disease, stage 4 (severe) N18.4 Active 979970577 Problem Stage 3 chronic kidney disease N18.3 Active 767422831 Problem Mood disorder F39 Active 48751948 Problem Seasonal allergic rhinitis due to pollen J30.1 Active 85342514 Problem Body mass index (BMI) of 40.0-44.9 in adult Z68.41 Active 409929189 Problem Other seasonal allergic rhinitis J30.2 Active 562609306 Problem Long-term use of high-risk medication Z79.899 Active 534904417 Problem Hypokalemia E87.6 Active 89980528 Problem Asthma with acute exacerbation in adult J45.901 Active 626677105 Problem History of anemia Z86.2 Active 741399183 Problem Vitamin D deficiency E55.9 Active 22635588 Problem Essential (primary) hypertension I10 Active 28994800 Problem Fibromyalgia M79.7 Active 910360271 Problem Mixed stress and urge urinary incontinence N39.46 Active [id number] ALLERGIES No Information ENCOUNTERS Encounter Location Date Diagnosis [facility] [address] [address]- [address] Jan, [facility] [address] 0[address]- 5168 Jan, [facility] [address] [address]22- 5011 Dec, Vitamin D deficiency E55.9 [facility] [address] 68413- 1702 Dec, [facility] [address] 50713- 9303 Dec, Fibromyalgia M79.7 [facility] [address] 41848- 8022 Nov, [facility] [address] 88810- 3298 Nov, [facility] [address] 58363- 7019 Nov, [facility] [address] 02861- 1645 Nov, Fibromyalgia M79.7 ; Vision changes H53.9 ; Chest wall pain R07.89 and Chronic pain syndrome G89.4 [facility] [address] 85681- 6716 Nov, [facility] [id number] [place] [address] 81622- 1008 Nov, Rash of hands R21 [facility] [id number] [place] [address] 22814- 4937 Nov, Generalized anxiety disorder F41.1 and Major depressive disorder, recurrent episode with anxious distress F33.9 [facility] [id number] [place] [address] 22314- 4700 Nov, Fibromyalgia M79.7 [facility] [id number] [place] [address] 14324- 5656 Nov, Complicated UTI (urinary tract infection) N39.0 [facility] [place] [id number] [place] [address] 88937- 7773 Oct, [facility] [id number] [place] [address] 69983- 6537 Oct, Generalized anxiety disorder F41.1 and Major depressive disorder, recurrent episode with anxious distress F33.9 [facility] [id number] [place] [address] 67514- 6869 Oct, [facility] [place] [id number] [place] [address] 18486- 6899 Oct, Fibromyalgia M79.7 [facility] [id number] [place] [address] 21239- 4735 Sep, Restless leg syndrome G25.81 and Restless leg G25.81 [facility] [address] [place] [address] 52690- 9565 Sep, [facility] [id number] [place] [address] 70874- 2635 Sep, Seasonal allergic rhinitis due to pollen J30.1 ; Screening for breast cancer Z12.31 ; Chest pain at rest R07.9 ; Restless leg syndrome G25.81 ; Essential (primary) hypertension I10 and Depressed F32.9 [facility] [address] [address] 6788 August, Fibromyalgia M79.7 [facility] [id number] [place] [address] 98934- 7500 August, [facility] [id number] [place] [address] 18697- 9800 August, [facility] [id number] [place] [address] 10445- [address]125 August, [address] R93.8 [facility] [id number] [place] [address] 43660- 8633 August, Generalized anxiety disorder F41.1 and Major depressive disorder, recurrent episode with anxious distress F33.9 [facility] [place] [id number] [place] [address] 15746- 9341 August, Ab[address] R93.8 [facility] [place] [id number] [place] [address] 21649- 7394 Jul, [facility] [id number] [place] [address] 20482- 1954 Jul, Chronic kidney disease, stage 4 (severe) N18.4 [facility] [id number] [place] [address] 71988- 7196 Jul, [facility] [place] [id number] [place] [address] 15164- 0103 Jul, Restless leg G25.81 ; Mixed stress and urge urinary incontinence N39.46 and Fibromyalgia M79.7 [facility] [id number] [place] [address] 80802- 5489 Jul, Chronic kidney disease, stage 4 (severe) N18.4 [facility] [id number] [place] [address] 78853- 4601 Jun, Orthostatic hypotension I95.1 ; Chronic kidney disease, stage 4 (severe) N18.4 ; Chest wall discomfort R07.89 and Body mass index (BMI) of 40.0-44.9 in adult Z68.41 [facility] [id number] [place] [address] 13648- 3199 Jun, [facility] [id number] [place] [address] 33998- 6486 Jun, Orthostatic hypotension I95.1 [facility] [address] 21653- 4740 Jun, [facility] [id number] [place] [address] 31252 -6614 Jun, Orthostatic hypotension I95.1 ; Dysuria R30.0 and Acute cystitis without hematuria N30.00 [facility] [id number] [place] [address] 65980- 8567 Jun, [facility] [address] 91185- 8144 Jun, Chronic kidney disease, stage 4 (severe) N18.4 [facility] [id number] [place] [address] 44721- 7607 Jun, Fibromyalgia M79.7 [facility] [id number] [place] [address] 19973- 5970 Jun, [facility] [address] [place] [address] 69803- 1236 Jun, [facility] [id number] [place] [address] 98060- 67[address] May, Ab[address] R93.8 and Stage 3 chronic kidney disease N18.3 [facility] [id number] [place] [address] 82061- 7516 May, Chronic kidney disease, stage 4 (severe) N18.4 [facility] [id number] [place] [address] 89762- 1840 May, Chronic kidney disease, stage 4 (severe) N18.4 [facility] [place] [address] [place] [address] 49237- [address] May, [address] R93.8 [facility] [id number] [place] [address] 02337- 2707 May, [facility] [id number] [place] [address] 28516- 6243 May, [facility] [id number] [place] [address] 90559- 7172 May, Generalized anxiety disorder F41.1 and Major depressive disorder, recurrent episode with anxious distress F33.9 [facility] [id number] [place] [address] 13284- 3799 May, Mood disorder F39 [facility] [place] [id number] [place] [address] 55057- 3975 Apr, [facility] [place] [address] [place] [address] 53845- 7456 Apr, Infected skin lesion L08.9 and Muscle strain of right shoulder region, initial encounter S46.911A [facility] [place] [address] [place] [address] 94816- 1187 Apr, Generalized anxiety disorder F41.1 and Major depressive disorder, recurrent episode with anxious distress F33.9 [facility] [place] [address] [place] [address] 28079- 4899 Apr, [facility] [address] [place] [address] 97469- 6606 Apr, Recent urinary tract infection Z87.440 and Hypothyroid E03.9 [facility] [address] [place] [address] 97047- 0793 Apr, Generalized anxiety disorder F41.1 and Major depressive disorder, recurrent episode with anxious distress F33.9 [facility] [place] [address] [place] [address] 25503- 4956 Apr, Recent urinary tract infection Z87.440 [facility] [address] [address]- 5836 Mar, [facility] [address] [place] [address] 82529 -1727 Mar, Dysuria R30.0 ; Acute cystitis without hematuria N30.00 and BMI 40.0-44.9, adult Z68.41 [facility] [place] [id number] [place] [address] 27689- 4583 Mar, [facility] [id number] [place] [address] 09234- 1191 Mar, [facility] [id number] [place] [address] 27173- 3205 Mar, Generalized anxiety disorder F41.1 and Major depressive disorder, recurrent episode with anxious distress F33.9 [facility] [id number] [place] [address] 50557- 5917 Feb, Conjunctivitis, bacterial H10.9 [facility] [place] [id number] [place] [address] 84526- 8051 Feb, [facility] [place] [address] [place] [address] 23393 -2376 Feb, Conjunctivitis, bacterial H10.9 [facility] [place] [address] [place] [address] 73290- 6608 Feb, [facility] [address] [place] [address] 43037 -7138 Feb, Dysuria R30.0 ; Acute cystitis N30.00 and BMI 40.0-44.9, adult Z68.41 [facility] [place] [address] [place] [address] 40909- 5878 08 Feb, 2017 [facility] [address] [place] [address] 77718- 6001 Feb, Generalized anxiety disorder F41.1 and Major depressive disorder, recurrent episode with anxious distress F33.9 [facility] [place] [id number] [place] [address] 73319- 9076 Feb, Mood disorder F39 and BMI 40.0-44.9, adult Z68.41 [facility] [place] [id number] [place] [address] 24789- 0391 Jan, [facility] [facility] [address] 94185- 4115 Jan, [facility] [address] 18463- 4951 Jan, Hypothyroid E03.9 [facility] [address] 04934- 7737 Jan, [facility] [address] 52766- 6822 Jan, Chronic kidney disease, unspecified N18.9 ; Hypokalemia E87.6 ; Essential (primary) hypertension I10 ; Fibromyalgia M79.7 ; Coronary artery disease involving nome coronary artery of nome heart, angina presence unspecified I25.10 ; Hypothyroid E03.9 and Encounter for immunization Z23 [facility] [place] [id number] [place] [address] 05352- 6634 Jan, Hypothyroid E03.9 [facility] [place] [id number] [place] [address] 24596- 5478 Jan, [facility] [place] [id number] [place] [address] 76151- 7477 Dec, Vitamin D deficiency E55.9 [facility] [id number] [place] [address] 91771- 3351 Dec, Primary osteoarthritis of left knee M17.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 [facility] [place] [address] [place] [address] 34683- 5421 Dec, Fibromyalgia M79.7 [facility] [place] [address], [place] [address]- 7045 18 Sep, 2017 Mood disorder F39 [facility] [id number] [place] [address] 85045- 5529 13 Dec, 2016 [facility] [address] [place] [address] 43417- 9003 2016 Generalized anxiety disorder F41.1 and Major depressive disorder, recurrent episode with anxious distress F33.9 [facility] [address] [place] [address] 62536- 8763 11 Dec, 2016 [facility] [id number] [place] [address] 56634- 9432 08 Dec, 2016 Streptococcal meningitis G00.2 [facility] [address] [place] [address] 05169- 5144 07 Dec, 2016 Streptococcal meningitis G00.2 [facility] [address] [place] [address] 04146- 2579 07 Dec, 2016 [facility] [address] [place] [address] 04244- 4498 06 Dec, 2016 Streptococcal meningitis G00.2 [facility] [address] [place] [address] 66617- 3430 06 Dec, 2016 [facility] [address] [place] [address] 40850- 7831 06 Dec, 2016 Major depressive disorder, recurrent episode with anxious distress F33.9 [facility] [address], [place] [address]- 1612 Nov, Fever, unspecified fever cause R50.9 [facility] [address] [address]- 0031 24 Nov, 2016 [facility] [address] [place] [address] 04238- 1573 16 Nov, 2016 Hypothyroid E03.9 [facility] [id number] [place] [address] 94816- 3858 Nov, Generalized anxiety disorder F41.1 and Major depressive disorder, recurrent episode with anxious distress F33.9 [facility] [id number] [place] [address] 85868- 2463 Nov, [facility] [address] [place] [address] [id number] Oct, Dental examination Z01.20 [facility] [id number] [place] [address] 28809- 1936 Oct, Generalized anxiety disorder F41.1 and Major depressive disorder, recurrent episode with anxious distress F33.9 [facility] [id number] [place] [address] 70228- 1671 Oct, Chronic kidney disease, stage 4 (severe) N18.4 [place] [id number] [place] [address] 96808- 7206 Oct, [facility] [address] [place] [address] 09794- 8706 Oct, Fibromyalgia M79.7 [facility] [id number] [place] [address] 20434- 0191 Oct, [facility] [id number] [place] [address] 14128- 1323 Oct, Generalized anxiety disorder F41.1 ; Major depressive disorder, recurrent episode with anxious distress F33.9 and Bipolar disorder, current episode manic without psychotic features F31.10 [facility] [address] [place] [address] 54606- 8025 Sep, [facility] [id number] [place] [address] 13778- 1653 Sep, [facility] [id number] [place] [address] 79280- 1121 Sep, Vitamin D deficiency E55.9 [facility] [id number] [place] [address] 72122- 9615 Sep, Vitamin D deficiency E55.9 [facility] [address] [place] [address] 57312- 4360 Sep, [facility] [address] [place] [address] 33462- 5836 Sep, Chronic kidney disease, stage 4 (severe) N18.4 ; Hypothyroid E03.9 ; Restless leg G25.81 ; Fibromyalgia M79.7 ; Essential ( primary) hypertension I10 ; Vitamin D deficiency E55.9 ; Dyspepsia R10.13 ; Anemia in chronic kidney disease D63.1 ; Chronic kidney disease, unspecified N18.9 ; Coronary artery disease involving nome coronary artery of nome heart , angina presence unspecified I25.10 ; Screening breast examination Z12.39 and Low back pain M54.5 [facility] [id number] [place] [address] 13264- 6034 August, Generalized anxiety disorder F41.1 and Major depressive disorder, recurrent episode with anxious distress F33.9 [facility] [address] [place] [address] 32986- 2345 August, Generalized anxiety disorder F41.1 and Major depressive disorder, recurrent episode with anxious distress F33.9 [facility] [address] [place] [address] 64541- 8756 August, Fibromyalgia M79.7 [facility] [id number] [place] [address] 69020- 5432 Jul, Generalized anxiety disorder F41.1 and Major depressive disorder, recurrent episode with anxious distress F33.9 [facility] [address] [place] [address] 11029- 3972 Jul, Fibromyalgia M79.7 [facility] [id number] [place] [address] 57865- 1211 Jul, Generalized anxiety disorder F41.1 [facility] [id number] [place] [address] 73727- 7866 May, [place] [address] [place] [address] 81070- 9244 May, Hypothyroid E03.9 [facility] [address] [place] [address] 69282- 6816 May, Chronic kidney disease, stage 4 (severe) N18.4 ; Hypothyroid E03.9 ; Restless leg G25.81 ; Fibromyalgia M79.7 ; Essential ( primary) hypertension I10 ; Vitamin D deficiency E55.9 ; Dyspepsia R10.13 ; Acute non-recurrent maxillary sinusitis J01.00 ; Anemia in chronic kidney disease D63.1 ; Chronic kidney disease, unspecified N18.9 and Coronary artery disease involving nome coronary artery of nome heart, angina presence unspecified I25.10 [facility] [id number] [place] [address] 24401- 6179 May, Vitamin D deficiency, unspecified E55.9 [facility] [id number] [place] [address] 55215- 1795 May, Generalized anxiety disorder F41.1 and Major depressive disorder, recurrent episode with anxious distress F33.9 [facility] [address] [place] [address] 36854- 6349 Apr, Pain in right knee M25.561 and Pain in left knee M25.562 [facility] [id number] [place] [address] 00339- 9546 Apr, [place] [address] [place] [address] 73820- 1740 Apr, [place] [address] [place] [address] 18013- 2112 Apr, [place] [address] [place] [address] 78773- 0633 Mar, Generalized anxiety disorder F41.1 and Major depressive disorder, recurrent episode with anxious distress F33.9 [place] [address] 31057- 9953 Mar, Generalized anxiety disorder F41.1 and Major depressive disorder, recurrent episode with anxious distress F33.9 [place] [address] [place] [address] 99270- 6032 Mar, [facility] [id number] [place] [address] 68876- 9118 Mar, [place] [address] 15707- 1434 Mar, [place] [address] 15202- 3201 Mar, Asthma J45.909 and Fibromyalgia M79.7 [place] [address] 70436- 5354 Mar, Chronic kidney disease, stage 4 (severe) N18.4 ; Vitamin D deficiency E55.9 and Essential (primary) hypertension I10 [place] [id number] [place] [address] 77115- 4621 Feb, [place] [id number] [place] [address] 62302- 9170 Feb, Dysuria R30.0 ; Mixed stress and urge urinary incontinence N39.46 ; Fibromyalgia M79.7 and Chronic kidney disease, stage IV (severe) N18.4 [place] [id number] [place] [address] 95134- 4011 Feb, Chronic kidney disease, stage 4 (severe) N18.4 [facility] [id number] [place] [address] 69962- 3723 Feb, Chronic kidney disease, stage 4 (severe) N18.4 [place] [id number] [place] [address] 01953- 0605 Feb, [place] [id number] [place] [address] 18848- 8908 Feb, Vitamin D deficiency, unspecified E55.9 [place] [id number] [place] [address] 55283- 7833 Jan, [facility] [id number] [place] [address] 69598- 1612 Jan, [facility] [id number] [place] [address] 29930- 4758 Dec, [place] [address] 98713- 0103 Dec, Chronic kidney disease, stage 4 (severe) N18.4 [place] [id number] [place] [address] 38140- 6930 Dec, Dysthymic disorder F34.1 and Generalized anxiety disorder F41.1 [place] [id number] [place] [address] 17190- 1471 Dec, [place] [id number] [place] [address] 10424- 6615 Dec, [place] [address] [place] [address] 43487- 0225 Dec, Dysthymic disorder F34.1 and Generalized anxiety disorder F41.1 [place] [id number] [place] [address] 51669- 3082 Dec, Dysuria R30.0 ; Chronic kidney disease, stage 4 (severe) N18.4 ; Hypertension I10 ; Dyspepsia R10.13 ; Yeast dermatitis B37.2 ; Palpitations R00.2 ; Hypothyroid E03.9 ; Functional 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 and Other seasonal allergic rhinitis J30.2 [facility] [id number] [place] [phone] Dec, [facility] [id number] [place] [phone] Nov, Dysuria R30.0 and Stress incontinence N39.3 [place] [id number] [place] [address] [phone] Nov, [facility] [id number] [place] [address] [phone] Nov, [facility] [id number] [place] [address] [phone] Nov, Osteoarthritis of knees, bilateral M17.0 [facility] [id number] [place] [address] [phone] Nov, Dysthymic disorder F34.1 and Generalized anxiety disorder F41.1 [place] [address] [id number] [place] [address] 40465- 8011 Nov, [place] [id number] [place] [address] 65941- 5549 Nov, [place] [id number] [place] [address] 36279- 8511 Nov, Urgency of urination R39.15 [place] [id number] [place] [address] 90510- 5602 Nov, [place] [id number] [place] [address] 90291- 8819 Nov, Chronic kidney disease, stage 4 (severe) N18.4 [place] [id number] [place] [address] 85466- 4948 Oct, Hypertension I10 ; Coronary artery disease involving nome coronary artery of nome heart, angina presence unspecified I25.10 ; Palpitations R00.2 ; Hypothyroid E03.9 ; Right foot pain M79.671 ; Functional 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 and Other seasonal allergic rhinitis J30.2 [facility] [id number] [place] [address] 04399- 3195 Oct, Dysthymic disorder F34.1 and Generalized anxiety disorder F41.1 [facility] [id number] [place] [address] 28349- 5941 Sep, [facility] [address] [place] [address] 3858 Sep, [facility] [id number] [place] [address] 69241- 9048 Sep, [facility] [id number] [place] [address] 89712- 1057 Sep, [place] [id number] [place] [address] 16322- 2860 Sep, [place] [id number] [place] [address] 88377- 7891 Sep, Dysthymic disorder F34.1 and Generalized anxiety disorder F41.1 [place] [id number] [place] [address] 61671- 9007 16 Sep, 2015 Asthma with acute exacerbation in adult J45.901 ; Dysuria R30.0 ; Chronic kidney disease, stage 4 (severe) N18.4 and History of anemia Z86.2 [place] [id number] [place] [address] 54375- 0245 2015 Generalized anxiety disorder F41.1 and Dysthymic disorder F34.1 [place] [id number] [place] [address] 66671- 6315 August, Screening breast examination Z12.39 and Acute recurrent maxillary sinusitis J01.01 [place] [id number] [place] [address] 59318- 4590 August, Osteoarthritis of knees, bilateral M17.0 [place] [id number] [place] [address] 96421- 6849 August, Chronic kidney disease, stage 4 (severe) N18.4 ; Acute non- recurrent maxillary sinusitis J01.00 ; Urinary problem R39.89 ; Bowel habit changes R19.4 ; Functional 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 and History of colon polyps Z86.010 [place] [address] [address] 0449 Jul, Dysthymic disorder F34.1 and Generalized anxiety disorder F41.1 [facility] [id number] [place] [address] 38862- 9678 Jul, [facility] [id number] [place] [address] 22507- 0786 Jul, Dysthymic disorder F34.1 ; Generalized anxiety disorder F41.1 and group home use of drug Z79.899 [facility] [id number] [place] [address] 38643- 8542 Jul, [facility] [id number] [place] [address] 50460- 2723 Jun, [place] [id number] [place] [address] 11711- 2611 Jun, [place] [id number] [place] [address] 19380- 6277 May, [place] [id number] [place] [address] 50663- 4412 May, Dysthymic disorder F34.1 and Generalized anxiety disorder F41.1 [place] [id number] [place] [address] 84545- 8516 Apr, Kidney disease N28.9 [place] [id number] [place] [address] 98930- 7310 Apr, Generalized anxiety disorder F41.1 and Dysthymic disorder F34.1 [place] [id number] [place] [address] 97111- 5766 Apr, Chronic kidney disease, stage 4 (severe) N18.4 [place] [id number] [place] [address] 64212- 7372 Apr, Generalized anxiety disorder F41.1 ; Major depression, recurrent F33.9 and Sleep disturbance G47.9 [place] [id number] [place] [address] 97973- 0661 Mar, Generalized anxiety disorder F41.1 and Dysthymic disorder F34.1 [facility] [id number] [place] [address] 64861- 0241 Mar, Generalized anxiety disorder F41.1 ; Dysthymic disorder F34.1 and Insomnia G47.00 [facility] [id number] [place] [address] 31877- 1345 Mar, [facility] [address] 10345- 6268 Mar, [facility] [id number] [place] [address] 05305- 8020 Mar, Osteoarthritis of knees, bilateral M17.0 [facility] [address] 94789- 9333 Mar, Hypertension I10 ; Hypothyroid E03.9 ; Dysthymic disorder F34.1 ; Chronic kidney disease, stage 4 (severe) N18.4 and Nausea & vomiting R11.2 [place] [id number] [place] [address] 76142- 3400 Mar, Generalized anxiety disorder F41.1 ; Dysthymic disorder F34.1 and Insomnia G47.00 [facility] [id number] [place] [address] 71952- 1248 Mar, Dehydration E86.0 ; Chronic kidney disease, stage 4 (severe ) N18.4 and Nausea & vomiting R11.2 [facility] [id number] [place] [address] 81958 -3767 08 Mar, 2015 Gastroenteritis K52.9 [facility] [id number] [place] [address] 24994- 7389 Mar, [facility] [id number] [place] [address] 65990- 7940 Mar, [facility] [id number] [place] [address] 10635- 4401 Feb, Dysthymic disorder F34.1 and Generalized anxiety disorder F41.1 [place] [id number] [place] [address] 66636- 1368 Jan, UTI (urinary tract infection) N39.0 ; Asthma J45.909 ; Coronary artery disease involving nome coronary artery of nome heart, angina presence unspecified I25.10 ; Hypertension I10 ; Hypothyroid E03.9 ; Vitamin D deficiency E55.9 ; Insomnia G47.00 ; Palpitations R00.2 ; Depressed F32.9 ; Restless leg G25.81 and Anxiety F41.9 [place] [id number] [place] [address] 47942- 2704 Jan, Dysthymic disorder F34.1 and Generalized anxiety disorder F41.1 [place] [id number] [place] [address] 38998- 9519 Jan, [place] [address] 68505- 8404 30 Dec, 2014 [place] [id number] [place] [address] 53480- 3788 28 Dec, 2014 Alkalosis 276.3 ; Chronic kidney disease, 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.4 ; Hyperpotassemia 276.7 ; Secondary hyperparathyroidism, renal 588.81 ; Proteinuria 791.0 ; Unspecified vitamin D deficiency 268.9 ; Anemia in chronic kidney disease 285.21 ; Other and unspecified hyperlipidemia 272.4 ; Hypertension, essential, benign 401.1 and Chronic kidney disease (CKD), stage III (moderate) 585.3 [place] [id number] [place] [address] 24878- 8748 Dec, [address] 21464- 6786 Dec, Depressive disorder, not elsewhere classified 311 and Generalized anxiety disorder 300.02 [place] [id number] [place] [address] 02512- 7792 Dec, [place] [address] 55606- 9608 Dec, [place] [id number] [place] [address] 70875- 1599 Nov, Depressive disorder, not elsewhere classified 311 and Generalized anxiety disorder 300.02 [place] [id number] [place] [address] 53848- 9302 Nov, Arthritis of both knees 716.[address] 90443- 4331 Nov, PAF (paroxysmal atrial fibrillation) 427.31 ; CAD (coronary artery disease) 414.00 ; Chest pain 786.50 and Chronic kidney disease (CKD) stage G4/A1, severely decreased glomerular filtration rate (GFR) between 15-29 mL/min/1.73 square meter and albuminuria creatinine ratio less than 30 mg/g 585.4 [place] [id number] [place] [address] 86675- 4410 Oct, Coronary atherosclerosis of unspecified type of vessel, nome or graft 414.00 ; Chronic kidney disease, 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.4 ; Hypertension 401.9 and Edema 782.3 [place] [id number] [place] [address] 57839- 4632 Oct, Depressive disorder, not elsewhere classified 311 and Generalized anxiety disorder 300.02 [place] [id number] [place] [address] 18132- 9756 Oct, Depressive disorder, not elsewhere classified 311 and Generalized anxiety disorder 300.02 [place] [id number] [place] [address] 36378- 9593 Oct, [place] [id number] [place] [address] 70244- 8792 Oct, [place] [id number] [place] [address] 14156- 0148 Sep, [place] [id number] [place] [address] 17089- 5409 Sep, Chronic kidney disease, 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.4 [facility] [id number] [place] [address] 34605- 4246 Sep, [facility] [id number] [place] [address] 14019- 3299 Sep, Coronary atherosclerosis of unspecified type of vessel, nome or graft 414.00 ; Hypertension 401.9 ; Edema 782.3 and Hypothyroidism 244.9 [place] [address] 27923- 8987 Sep, Coronary atherosclerosis of unspecified type of vessel, nome or graft 414.00 ; Hypertension 401.9 ; Fibromyalgia 729.1 ; Edema 782.3 ; Hypothyroidism 244.9 and Anemia 285.9 [place] [address] 39594- 1310 Sep, Anxiety disorder, unspecified 300.00 and Depressive disorder , not elsewhere classified 311 [place] [address] 15929- 7548 Sep, [facility] [address] 02238- 7031 August, Generalized anxiety disorder 300.02 [place] [id number] [place] [address] 80450- 8095 August, Closed fracture of lateral malleolus 824.2 [place] [id number] [place] [address] 32895- 7908 Jul, [facility] [id number] [place] [address] 98438- 0650 Jul, [facility] [id number] [place] [address] 20158- 0507 Jun, [place] [address] 95960- 6850 Jun, [facility] [id number] [place] [address] 69934- 0671 Jun, [facility] [place] [facility] [address] [id number] [place] [address]- 7528 Jun, [facility] [place] [facility] [address] [id number] [place] [address]- 7694 Jun, [facility] [place] [facility] [address] [id number] [place] [address]- 5108 Jun, [facility] [place] [facility] [address] [id number] [place] [address]- 5634 May, 2014 [facility] [place] [facility] [address] [id number] [place] [address]- 9681 May, 2014 [facility] [place] [facility] [address] [id number] [place] [address]- 3300 May, 2014 [facility] [place] [facility] [address] [id number] [place] [address]- 9670 May, 2014 [facility] [place] [facility] [address] [id number] [place] [address]- 0864 16 May, 2014 [facility] [place] [facility] [address] [id number] [place] [address]- 6696 16 May, 2014 [facility] [place] [facility] [address] [id number] [place] [address]- 4108 May, 2014 [facility] [place] [facility] [address] [id number] [place] [address]- 8698 May, 2014 [facility] [place] [facility] [address] [id number] [place] [address]- 3734 May, 2014 [facility] [place] [facility] [address] [id number] [place] [address]- 0641 May, [facility] [place] [facility] [address] [id number] [place] [address]- 5680 Apr, [facility] [place] [facility] [address] [id number] [place] [address]- 3666 Apr, [facility] [place] [facility] [address] [id number] [place] [address]- 2648 Mar, [facility] [place] [facility] [address] [id number] [place] [address]- 8883 Mar, [facility] [place] [facility] [address] [id number] [place] [address]- 2195 Mar, [facility] [place] [facility] [address] [id number] [place] [address]- 9384 Mar, [facility] [place] [facility] [address] [id number] [place] [address]- 2046 Mar, [facility] [place] [facility] [address] [id number] [place] [address]- 4102 Mar, [facility] [place] [facility] [address] [id number] [place] [address]- 2990 Mar, [facility] [place] [facility] [address] [id number] [place] [address]- 8384 Feb, [facility] [place] [facility] [address] [id number] [place] [address]- 4536 Feb, [facility] [place] [facility] [address] [id number] [place] [address]- 8335 Feb, [facility] [place] [facility] [address] [facility] [id number] [place] [address]- 4001 Jan, [facility] [place] [facility] [address] [id number] [place] [address]- 6071 Jan, [facility] [place] [facility] [address] [id number] [place] [address]- 8866 Jan, [facility] [place] [facility] [address] [id number] [place] [address]- 7580 Jan, [facility] [place] [facility] [address] [id number] [place] [address]- 3162 Jan, [facility] [place] [facility] [address] [id number] [place] [address]- 6441 Jan, [facility] [place] [facility] [address] [id number] [place] [address]- 8077 Jan, [facility] [place] [facility] [address] [id number] [place] [address]- 6691 Jan, [facility] [place] [facility] [address] [id number] [place] [address]- 5712 Jan, [facility] [place] [facility] [address] [id number] [place] [address]- 4753 Jan, [facility] [place] [facility] [address] [id number] [place] [address]- 1739 Nov, [facility] [place] [facility] [address] [id number] [place] [address]- 7930 Nov, [facility] [place] [facility] [address] [id number] [place] [address]- 8564 Nov, [facility] [place] [facility] [address] [id number] [place] [address]- 9901 Oct, [facility] [place] [facility] [address] [id number] [place] [address]- 4081 Oct, [facility] [place] [facility] [address] [id number] [place] [address]- 4224 Oct, [facility] [place] [facility] [address] [id number] [place] [address]- 7579 Oct, [facility] [place] [facility] [address] [id number] [place] [address]- 4542 Oct, [facility] [place] [facility] [address] [id number] [place] [address]- 0241 Oct, [facility] [place] [facility] [address] [id number] [place] [address]- 1717 Oct, [facility] [place] [facility] [address] [id number] [place] [address]- 4003 Oct, [facility] [place] [facility] [address] [id number] [place] [address]- 0747 Oct, [facility] [place] [facility] [address] [id number] [place] [address]- 1648 Sep, [facility] [place] [facility] [address] [id number] [place] [address]- 7731 Sep, [facility] [place] [facility] [address] [id number] [place] [address]- 5742 Sep, [facility] [place] [facility] [address] [id number] [place] [address]- 4453 Sep, [facility] [place] [facility] [address] [id number] [place] [address]- 8652 Sep, [facility] [place] [facility] [address] [id number] [place] [address]- 4913 Sep, [facility] [place] [facility] [address] [id number] [place] [address]- 5239 Sep, [facility] [place] [facility] [address] [id number] [place] [address]- 6490 Sep, [facility] [place] [facility] [address] [id number] [place] [address]- 1005 Sep, [facility] [place] [facility] [address] [id number] [place] [address]- 5859 August, [facility] [place] [facility] [address] [id number] [place] [address]- 4652 August, [facility] [place] [facility] [address] [id number], [place] [address]- 7431 August, [facility] [place] [facility] [address] [id number] [place] [address]- 0523 August, [facility] [place] [facility] [address] [id number] [place] [address]- 5625 August, [facility] [place] [facility] [address] [id number] [place] [address]- 7506 August, [facility] [place] [facility] [address] [id number] [place] [address]- 6535 Jul, [facility] [address] [id number] [place] [address]- 5638 Jul, [facility] [place] [facility] [address] [id number] [place] [address]- 1960 Jul, [facility] [place] [facility] [address] [id number] [place] [address]- 1998 Jul, [facility] [place] [facility] [address] [id number] [place] [address]- 4588 Jul, [facility] [place] [facility] [address] [id number] [place] [address]- 8500 Jul, [facility] [place] [facility] [address] [id number] [place] [address]- 9925 Jun, [facility] [place] [facility] [address] [id number] [place] [address]- 8885 Jun, [facility] [place] [facility] [address] [id number] [place] [address]- 1948 May, [facility] [place] [facility] [address] [id number] [place] [address]- 5596 May, [facility] [address] [id number] [place] [address]- 8267 May, [facility] [place] [facility] [address] [id number] [place] [address]- 7313 May, [facility] [place] [facility] [address] [id number] [place] [address]- 4894 Apr, [facility] [place] [facility] [address] [id number] [place] 9853 Apr, [facility] [place] [facility] [address] [id number] [place] [address]- 7266 Mar, [facility] [place] [facility] [address] [id number] [place] 9563 Mar, [facility] [place] [facility] [address] [id number] [place] [address]- 8965 Mar, [facility] [place] [facility] [address] [id number] [place] [address]- 1259 Mar, [facility] [place] [facility] [address] [id number] [place] [address]- 0779 Mar, [facility] [place] [facility] [address] [id number] [place] [address]- 5807 Mar, [facility] [place] [facility] [address] [id number] [place] [address]- 8766 Feb, [facility] [place] [facility] [address] [id number] [place] [address]- 7871 Feb, [facility] [place] [facility] [address] [id number] [place] [address]- 2121 Feb, [facility] [place] [facility] [address] [id number], [place] [address]- 7311 Feb, [facility] [place] [facility] [address] [id number] [place] [address]- 3397 Feb, [facility] [place] [facility] [address] [id number], [place] [address]- 5062 Feb, [facility] [place] [facility] [address] [id number], [place] [address]- 8420 Jan, [facility] [place] [facility] [address] [id number], [place] [address]- 6398 24 Jan, 2013 [facility] [place] [facility] [address] [id number] [place] [address]- 9420 Jan, [facility] [place] [facility] [address] [id number], [place] [address]- 5481 Jan, [facility] [place] [facility] [address] [id number], [place] [address]- 0689 Jan, [facility] [place] [facility] [address] [id number] [place] [address]- 5543 Jan, [facility] [place] [facility] [address] [id number] [place] [address]- 9004 Dec, [facility] [place] [facility] [address] [id number] [place] [address]- 8593 Dec, [facility] [place] [facility] [address] [id number] [place] [address]- 6012 Nov, [facility] [place] [facility] [address] [id number] [place] [address]- 6502 Nov, [facility] [place] [facility] [address] [id number] [place] [address]- 4660 Oct, [facility] [place] [facility] [address] [id number] [place] [address]- 3300 Oct, [facility] [place] [facility] [address] [id number] [place] [address] Oct, [facility] [place] [facility] [address] [id number] [place] [address] Oct, [facility] [place] [facility] [address] [id number] [place] [address] Oct, [facility] [place] [facility] [address] [id number] [place] [address] Oct, [facility] [place] [facility] [address] [id number] [place] [address] Sep, [facility] [place] [facility] [address] [id number] [place] [address] Sep, [facility] [place] [facility] [address] [id number] [place] [address] Sep, [facility] [place] [facility] [address] [id number] [place] [address] Sep, [facility] [place] [facility] [address] [id number] [place] [address] August, [facility] [place] [facility] [address] [id number] [place] [address] August, [facility] [address] [id number] [place] [address] August, [facility] [address] [id number] [place] [address] August, [facility] [address] [id number] [place] [address] August, [facility] [address] [id number] [place] [address] Jul, [facility] [address] [id number] [place] [address] Jul, [facility] [address] [id number] [place] [address] Jul, [facility] [address] [id number] [place] [address] Jul, [facility] [address] [id number] [place] [address] Jul, [facility] [address] [id number] [place] [address] Jul, [facility] [address] [id number] [place] [address] Jul, [facility] [address] [id number], [place] [address] Jul, [facility] [address] [id number] [place] [address] Jul, [facility] [address] [id number] [place] [address] Jul, [facility] [address] [id number] [place] [id number] Jun, [facility] [address] [id number] [place] [address] Jun, [facility] [address] [id number] [place] [address] Jun, [facility] [place] [facility] [address] [id number] [place] [address] Jun, [facility] [place] [facility] [address] [id number] [place] [address] Jun, [facility] [place] [facility] [address] [id number] [place] [address] May, [facility] [address] [id number] [place] [address]- [address] May, [facility] [place] [facility] [address] [id number] [place] [address] May, [facility] [address] [id number] [place] [address] Apr, [facility] [place] [facility] [address] [id number] [place] [address] Apr, [facility] [place] [facility] [address] [id number] [place] [address] Apr, [facility] [place] [facility] [address] [id number] [place] [address] Apr, [facility] [place] [facility] [address] [id number] [place] [address]- [address] Apr, [facility] [place] [facility] [address] [id number] [place] [address] Apr, [facility] [place] [facility] [address] [id number] [place] [address]- [address] Mar, [facility] [place] [facility] [address] [id number] [place] [address] Mar, [facility] [place] [facility] [address] [id number] [place] [address] Mar, [facility] [place] [facility] [address] [id number] [place] [address] Mar, [facility] [place] [facility] [address] [id number] [place] [address]- [address] Feb, [facility] [place] [facility] [address] [id number] [place] [address] Feb, [facility] [place] [facility] [address] [id number] [place] [address]- [address] Feb, [facility] [place] [facility] [address] [id number] [place] [address] Feb, [facility] [place] [facility] [address] [id number] [place] [address] Feb, [facility] [place] [facility] [address] [id number] [place] [address] Feb, [facility] [place] [facility] [address] [id number] [place] [address]- [address] Feb, [facility] [place] [facility] [address] [id number] [place] [address] Feb, [facility] [place] [facility] [address] [id number] [place] [address] Feb, [facility] [place] [facility] [address] [facility] [id number] [place] [address] 4714 Feb, [facility] [place] [facility] [address] [id number] [place] [address] Feb, [facility] [place] [facility] [address] [id number], [place] [address] Feb, [facility] [place] [facility] [address] [id number] [place] [address] Feb, [facility] [place] [facility] [address] [facility] [id number] [place] [address] Feb, [facility] [place] [facility] [address] [id number], [place] [address] Feb, [facility] [place] [facility] [address] [id number] [place] [address] 37[address] Feb, [facility] [place] [facility] [address] [id number] [place] [address] Jan, [facility] [place] [facility] [address] [id number] [place] [address] 3121 Jan, [facility] [place] [facility] [address] [id number] [place] [address], [place] [address]- [address] Jan, [facility] [place] [facility] [address] [id number] [place] [address]307 Jan, [facility] [place] [facility] [address] [id number] [place] [address]- 1145 Jan, [facility] [place] [facility] [address] [id number] [place] [address]- 1816 Jan, [facility] [place] [facility] [address] [id number] [place] [address]- [address] Jan, [facility] [place] [facility] [address] [id number] [place] [address]- 9865 Jan, [facility] [place] [facility] [address] [id number] [place] [address]- 4239 Jan, [facility] [place] [facility] [address] [id number] [place] [address]- 9841 Jan, [facility] [place] [facility] [address] [id number], [place] [address] Jan, [facility] [place] [facility] [address] [id number] [place] [address] 6101 Jan, [facility] [place] [facility] [address] [id number] [place] [address]- 4[address] Dec, [facility] [place] [facility] [address] [id number] [place] [address]- 6769 Dec, [facility] [place] [facility] [address] [id number], [place] [address]- [address] 24 Sep, 2011 [facility] [place] [facility] [address] [id number] [place] [address] 2546 23 Sep, 2011 [facility] [place] [facility] [address] [id number] [place] [address] 2546 22 Sep, 2011 [facility] [place] [facility] [address] [id number] [place] [address] 2546 21 Sep, 2011 [facility] [place] [facility] [address] [id number] [place] [address] 2546 20 Sep, 2011 [facility] [place] [facility] [address] [id number] [place] [address] 2546 20 Sep, 2011 [facility] [place] [facility] [address] [id number] [place] [address]- 3636 07 Dec, 2011 [facility] [place] [facility] [address] [id number] [place] [address]- [address]15 06 Sep, 2011 [facility] [place] [facility] [address] [id number] [place] [address]- 2145 06 Dec, 2011 [facility] [place] [facility] [address] [id number] [place] [address]- 5269 05 Dec, 2011 [facility] [place] [facility] [address] [id number] [place] [address]- 3930 23 Nov, 2011 [facility] [place] [facility] [address] [id number] [place] [address]- 2745 17 Nov, 2011 [facility] [place] [facility] [address] [id number] [place] [address]- 4004 13 Nov, 2011 [facility] [place] [facility] [address] [id number] [place] [address]- 2542 10 Nov, 2011 [facility] [place] [facility] [address] [id number] [place] [address]- 6366 08 Nov, 2011 [facility] [place] [facility] [address] [id number] [place] [address]- 7659 07 Nov, 2011 [facility] [place] [facility] [address] [id number] [place] [address]- 2546 Nov, [facility] [address] [id number] [place] [address] Nov, [facility] [place] [facility] [address] [id number] [place] [address]- [address] Oct, [facility] [address] [id number] [place] [address]- 6476 Oct, [facility] [address] [id number] [place] [address] Oct, [facility] [address] [id number] [place] [address] Oct, [facility] [address] [id number] [place] [address]- 9476 Oct, [facility] [address] [id number] [place] [address]- [address]326 Oct, [facility] [address] [id number] [place] [address]- 7616 Oct, [facility] [address] [id number] [place] [address]- 6196 Sep, [facility] [address] [id number] [place] [address]- 9096 Sep, [facility] [address] [id number] [place] [address]- 2546 August, [facility] [address] [id number] [place] [address]- 2546 August, [facility] [place] [facility] [address] [id number] [place] [address]- 1996 August, [facility] [place] [facility] [address] [id number] [place] [address]- 2546 August, [facility] [address] [id number] [place] [address] Jul, [facility] [place] [facility] [address] [id number] [place] [address]- 7791 Jul, [facility] [place] [facility] [address] [id number] [place] [address]- 6058 Jul, [facility] [place] [facility] [address] [id number] [place] [address]- 6794 Jul, [facility] [place] [facility] [address] [id number] [place] [address]- 5163 Jul, [facility] [place] [facility] [address] [id number] [place] [address]- 0590 Jul, [facility] [place] [facility] [address] [id number] [place] [address]- 3278 Jul, [facility] [place] [facility] [address] [id number] [place] [address]- 5240 Jul, [facility] [place] [facility] [address] [id number] [place] [address]- 9026 Jul, [facility] [place] [facility] [address] [id number] [place] [address]- 7490 Jun, [facility] [place] [facility] [address] [id number] [place] [address]- 1699 Jun, [facility] [place] [facility] [address] [id number], [place] [address]- 1811 15 Jun, 2011 [facility] [place] [facility] [address] [id number], [place] [address]- [address]377 14 Jun, 2011 [facility] [place] [facility] [address] [id number] [place] [address]- 3565 12 Jun, 2011 [facility] [place] [facility] [address] [id number] [place] [address]- 1691 Jun, [facility] [place] [facility] [address] [id number], [place] [address]- 0801 Jun, [facility] [place] [facility] [address] [id number], [place] [address]- 1659 May, [facility] [address] [id number] [place] [address]- 0136 May, [facility] [address] [id number] [place] [address] 2546 May, [facility] [address] [id number] [place] [address] 2546 May, [facility] [address] [id number] [place] [address] 2546 May, [facility] [address] [id number] [place] [address]- 0199 Apr, [facility] [address] [id number] [place] [address]- 7336 Apr, [facility] [address] [id number] [place] [address]- 6618 Apr, [facility] [address] [id number] [place] [address]- 7136 Apr, [facility] [address] [id number] [place] [address]- 1330 Apr, [facility] [address] [id number] [place] [address]- 1311 Mar, [facility] [address] [id number] [place] [address] 2546 Mar, [facility] [address] [id number] [place] [address] 2546 Mar, [facility] [place] [facility] [address] [id number] [place] [address] 2546 Mar, [facility] [place] [facility] [address] [id number] [place] [address] 2546 Mar, [facility] [address] [id number] [place] [address] 2545 Mar, [facility] [place] [facility] [address] [id number] [place] [address]- 4776 Mar, [facility] [place] [facility] [address] [id number] [place] [address]- 3157 Feb, [facility] [place] [facility] [address] [id number] [place] [address]- 8690 Feb, [facility] [place] [facility] [address] [id number] [place] [address]- 1627 Feb, [facility] [place] [facility] [address] [id number] [place] [address]- 4945 Feb, [facility] [place] [facility] [address] [id number] [place] [address]- 0626 Jan, [facility] [place] [facility] [address] [id number] [place] [address]- 3200 Jan, [facility] [place] [facility] [address] [id number] [place] [address]- 8345 Jan, [facility] [place] [facility] [address] [id number] [place] [address]- 6121 Jan, [facility] [place] [facility] [address] [id number] [place] [address]- 7802 Nov, [facility] [place] [facility] [address] [id number] [place] [address]- 8284 Mar, [facility] [place] [facility] [address] [id number] [place] [address]- 4835 Mar, [facility] [place] [facility] [address] [id number] [place] [address]- 7587 Mar, [facility] [place] [facility] [address] [id number] [place] [address]- 4358 Mar, [facility] [place] [facility] [address] [id number] [place] [address] 254 Mar, [facility] [place] [facility] [address] [id number] [place] [address]- 2546 Mar, [facility] [address] [facility] [id number] [place] [address]- 2546 Feb, [facility] [address] [facility] [id number], [place] [address]- 2546 Feb, [facility] [address] [facility] [id number], [place] [address]- 2546 Jan, [facility] [address] [facility] [id number], [place] [address]- 2546 Jan, [facility] [address] [facility] [id number], [place] [address] 2546 Jan, IMMUNIZATIONS No Known Immunizations SOCIAL [...] 2020 & 2007 Surgical History Bladder surgery [facility] 03/2016 Surgical History Neurotransmitter placed 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
--- OUTSIDE RECORDS SUMMARY | 2018-05-29 07:46 | XMS REPORT ---
Author Author ZHANE BOSCH [facility] Address [address] [place] [address] Care Team Providers Care Hosiery Mater Name Role Phone ZHANE BOSCH Unavailable PROBLEMS Type Condition ICD9-CM Code EFD86-FC Code Onset Dates Condition Status SNOMED Code Problem Low back pain M54.5 Active 411686370 Problem Abnormal chest CT R93.8 Active 150274859 Problem Dysthymic disorder F34.1 Active 78952017 Problem Generalized anxiety disorder F41.1 Active 37293865 Problem Coronary artery disease involving huslia coronary artery of huslia heart, angina presence unspecified I25.10 Active 6619739717943 Problem Restless leg G25.81 Active 96729633 Problem Hypothyroid E03.9 Active 30027752 Problem Insomnia G47.00 Active 759283473 Problem Asthma J45.909 Active 603488364 Problem Chronic kidney disease, unspecified N18.9 Active 530717296 Problem Palpitations R00.2 Active 59770597 Problem Anemia in chronic kidney disease D63.1 Active 593879023401354 Problem Depressed F32.9 Active 48669150 Problem Bipolar disorder, current episode manic without psychotic features F31.10 Active 426788652 Problem Primary osteoarthritis of left knee M17.12 Active 947034611 Problem Degenerative tear of medial meniscus of left knee M23.204 Active 567803899 Problem Chronic pain syndrome G89.4 Active 927110395 Problem Restless leg syndrome G25.81 Active 01886220 Problem History of colon polyps Z86.010 Active 482973113 Problem Functional 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 Active 61975085 Problem Chronic kidney disease, stage 4 (severe) N18.4 Active 001099703 Problem Stage 3 chronic kidney disease N18.3 Active 492444002 Problem Mood disorder F39 Active 19820061 Problem Seasonal allergic rhinitis due to pollen J30.1 Active 00615913 Problem Body mass index (BMI) of 40.0-44.9 in adult Z68.41 Active 947541385 Problem Other seasonal allergic rhinitis J30.2 Active 009791510 Problem Long-term use of high-risk medication Z79.899 Active 612111026 Problem Hypokalemia E87.6 Active 90617745 Problem Asthma with acute exacerbation in adult J45.901 Active 631780708 Problem History of anemia Z86.2 Active 064837380 Problem Vitamin D deficiency E55.9 Active 84114286 Problem Essential (primary) hypertension I10 Active 63247194 Problem Fibromyalgia M79.7 Active 879495090 Problem Mixed stress and urge urinary incontinence N39.46 Active 898193882 ALLERGIES No Information ENCOUNTERS Encounter Location Date Diagnosis [place] [address] [address] Jan, [facility] [address] [address]- [address] Jan, [facility] [address] [address]- 4411 Dec, [facility] [address] 14706- 6527 Dec, Fibromyalgia M79.7 [facility] [address] 55752- 2512 Nov, [facility] [address] 53063- 8653 Nov, [facility] [address] 91148- 9581 Nov, [facility] [address] 77339- 9794 Nov, Fibromyalgia M79.7 ; Vision changes H53.9 ; Chest wall pain R07.89 and Chronic pain syndrome G89.4 [facility] [address] 30361- 2653 Nov, [facility] [address] 86706- 5889 Nov, Rash of hands R21 [facility] [address] [address] 8[address] Nov, Generalized anxiety disorder F41.1 and Major depressive disorder, recurrent episode with anxious distress F33.9 [facility] [address] [address] 2876 Nov, Fibromyalgia M79.7 [facility] [address] [place] [id number] [place] [address] 02847- 3826 Nov, Complicated UTI (urinary tract infection) N39.0 [facility] [address] [place] [id number] [place] [address] 74145- 9003 Oct, [place] [address] [place] [id number] [place] [address] 50540- 7677 Oct, Generalized anxiety disorder F41.1 and Major depressive disorder, recurrent episode with anxious distress F33.9 [place] [address] [place] [id number] [place] [address] 47721- 7192 Oct, [facility] [address] [place] [id number] [place] [address] 10851- 2454 Oct, Fibromyalgia M79.7 [facility] [address] [id number] [place] [address] 35971- 4205 Sep, Restless leg syndrome G25.81 and Restless leg G25.81 [place] [address] [place] [address] 00490- 3364 Sep, [place] [address] [place] [id number] [place] [address] 38381- 5868 Sep, Seasonal allergic rhinitis due to pollen J30.1 ; Screening for breast cancer Z12.31 ; Chest pain at rest R07.9 ; Restless leg syndrome G25.81 ; Essential (primary) hypertension I10 and Depressed F32.9 [facility] [address] [address] 4027 August, Fibromyalgia M79.7 [facility] [address] [place] [id number] [place] [address] 46563- 1356 August, [facility] [address] [place] [id number] [place] [address] 30415- 3643 August, [place] [address] [place] [id number] [place] [address] 24029- 3217 August, Ab[address] chest [address] R93.8 [place] [address] 04964- 2259 August, Generalized anxiety disorder F41.1 and Major depressive disorder, recurrent episode with anxious distress F33.9 [place] [address] 74841- 3636 August, Ab[address] chest [address] R93.8 [place] [address] [place] [id number] [place] [address] 49472- 3020 Jul, [place] [address] 19438- 7311 Jul, Chronic kidney disease, stage 4 (severe) N18.4 [place] [address] [place] [id number] [place] [address] 64504- 4040 Jul, [place] [address] [place] [id number] [place] [address] 54254- 0800 Jul, Restless leg G25.81 ; Mixed stress and urge urinary incontinence N39.46 and Fibromyalgia M79.7 [place] [address] [place] [id number] [place] [address] 38673- 3999 Jul, Chronic kidney disease, stage 4 (severe) N18.4 [place] [address] [place] [id number] [place] [address] 66012- 9549 Jun, Orthostatic hypotension I95.1 ; Chronic kidney disease, stage 4 (severe) N18.4 ; Chest wall discomfort R07.89 and Body mass index (BMI) of 40.0-44.9 in adult Z68.41 [place] [address] 40094- 9344 Jun, [facility] [address] [address]- 9953 Jun, Orthostatic hypotension I95.1 [facility] [address] [place] [id number] [place] [address] 60786- 0952 Jun, [facility] [address] [place] [id number] [place] [address] 90863 -3153 Jun, Orthostatic hypotension I95.1 ; Dysuria R30.0 and Acute cystitis without hematuria N30.00 [facility] [address] [place] [address] 93000- 4078 Jun, [facility] [address] [place] [id number] [place] [address] 85517- 6937 Jun, Chronic kidney disease, stage 4 (severe) N18.4 [facility] [address] [place] [id number] [place] [address] 55461- 4595 Jun, Fibromyalgia M79.7 [facility] [address] [place] [id number] [place] [address] 10627- 9036 Jun, [facility] [address] [place] [id number] [place] [address] 26840- 0648 Jun, [facility] [address] [place] [id number] [place] [address] 11805- [address] May, [address] R93.8 and Stage 3 chronic kidney disease N18.3 [facility] [address] [place] [address] 81327- 7506 May, Chronic kidney disease, stage 4 (severe) N18.4 [facility] [address] [place] [id number] [place] [address] 69113- 9524 May, Chronic kidney disease, stage 4 (severe) N18.4 [facility] [id number] [place] [address] 02352- [address] May, [address] R93.8 [facility] [address] [address]- 7121 May, [facility] [address] [place] [address] 09694- 4734 May, [facility] [address] [address]- 0558 May, Generalized anxiety disorder F41.1 and Major depressive disorder, recurrent episode with anxious distress F33.9 [facility] [address] [address]- 0539 May, Mood disorder F39 [facility] [address] [place] [address] 20890- 4536 Apr, [place] [address] [address]- 7488 Apr, Infected skin lesion L08.9 and Muscle strain of right shoulder region, initial encounter S46.911A [facility] [address] [address]- 2622 Apr, Generalized anxiety disorder F41.1 and Major depressive disorder, recurrent episode with anxious distress F33.9 [facility] [address] [address]- 5554 Apr, [facility] [address] [address]- 4348 Apr, Recent urinary tract infection Z87.440 and Hypothyroid E03.9 [facility] [address] [place] [id number] [address]- 6938 Apr, Generalized anxiety disorder F41.1 and Major depressive disorder, recurrent episode with anxious distress F33.9 [facility] [address] [place] [id number] [address]- 4886 Apr, Recent urinary tract infection Z87.440 [facility] [address] [address]- 7041 Mar, [facility] [address] [address] -8958 Mar, Dysuria R30.0 ; Acute cystitis without hematuria N30.00 and BMI 40.0-44.9, adult Z68.41 [facility] [address] [place] [address] 34952- 5647 Mar, [facility] [address] 54870- 0840 Mar, [facility] [address] [place] [id number] [place] [address] 32105- 5723 Mar, Generalized anxiety disorder F41.1 and Major depressive disorder, recurrent episode with anxious distress F33.9 [place] [address] [place] [id number] [place] [address] 39983- 3222 Feb, Conjunctivitis, bacterial H10.9 [place] [address] [place] [id number] [place] [address] 12804- 5385 Feb, [facility] [address] [place] [id number] [place] [address] 13464 -6915 Feb, Conjunctivitis, bacterial H10.9 [facility] [address] [place] [id number] [place] [address] 39497- 2706 Feb, [facility] [address] [place] [id number] [place] [address] 86602 -4296 Feb, Dysuria R30.0 ; Acute cystitis N30.00 and BMI 40.0-44.9, adult Z68.41 [facility] [address] [place] [id number] [place] [address] 45093- 0605 Feb, [place] [address] [place] [id number] [place] [address] 11490- 9822 Feb, Generalized anxiety disorder F41.1 and Major depressive disorder, recurrent episode with anxious distress F33.9 [facility] [address] [place] [id number] [place] [address] 64463- 7613 Feb, Mood disorder F39 and BMI 40.0-44.9, adult Z68.41 [place] [address] [place] [id number] [place] [address] 42129- 4875 Jan, [facility] [address] [place] [id number] [place] [address] 08073- 3858 Jan, [place] [address] 40196- 2856 Jan, Hypothyroid E03.9 [place] [address] 80319- 4303 Jan, [place] [address] 95004- 1644 Jan, Chronic kidney disease, unspecified N18.9 ; Hypokalemia E87.6 ; Essential (primary) hypertension I10 ; Fibromyalgia M79.7 ; Coronary artery disease involving huslia coronary artery of huslia heart, angina presence unspecified I25.10 ; Hypothyroid E03.9 and Encounter for immunization Z23 [place] [address] [place] [id number] [place] [address] 85605- 7115 Jan, Hypothyroid E03.9 [place] [address] [place] [id number] [place] [address] 18340- 9095 Jan, [place] [address] [place] [id number] [place] [address] 41387- 4195 Dec, Vitamin D deficiency E55.9 [place] [address] [place] [id number] [place] [address] 10746- 4288 Dec, Primary osteoarthritis of left knee M17.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 [place] [address] [place] [id number] [place] [address] 23480- 9602 Dec, Fibromyalgia M79.7 [facility] [address] [place] [id number] [place] [address] 94806- 2749 Dec, Mood disorder F39 [facility] [address] [address]- 4496 13 Dec, 2016 [facility] [id number] [place] [address] 42965- 4547 13 Dec, 2016 Generalized anxiety disorder F41.1 and Major depressive disorder, recurrent episode with anxious distress F33.9 [facility] [address] [address]- 4343 11 Dec, 2016 [facility] [id number] [place] [address] 93540- 0736 08 Dec, 2016 Streptococcal meningitis G00.2 [facility] [id number] [place] [address] 69911- 5761 07 Dec, 2016 Streptococcal meningitis G00.2 [facility] [address] [place] [address] 76189- 8919 07 Dec, 2016 [facility] [id number] [place] [address] 18716- 6625 06 Dec, 2016 Streptococcal meningitis G00.2 [facility] [address] [address]- 1789 06 Dec, 2016 [facility] [id number] [place] [address] 24577- 6445 06 Dec, 2016 Major depressive disorder, recurrent episode with anxious distress F33.9 [facility] [address] [address]- 3079 Nov, Fever, unspecified fever cause R50.9 [facility] [address] [address]- 9766 Nov, [facility] [id number] [place] [address] 90128- 8137 Nov, Hypothyroid E03.9 [facility] [address] [address]- 4306 10 Nov, 2016 Generalized anxiety disorder F41.1 and Major depressive disorder, recurrent episode with anxious distress F33.9 [facility] [address] [address]- 9802 Nov, [facility] [address] [id number] [place] [address] [id number] Oct, Dental examination Z01.20 [facility] [id number] [place] [address] 78483- 1110 Oct, Generalized anxiety disorder F41.1 and Major depressive disorder, recurrent episode with anxious distress F33.9 [facility] [address] [place] [id number] [place] [address] 14682- 3937 Oct, Chronic kidney disease, stage 4 (severe) N18.4 [facility] [address] [place] [id number] [place] [address] 85291- 7218 Oct, [facility] [address] [place] [id number] [place] [address] 25437- 6706 Oct, Fibromyalgia M79.7 [facility] [address] [address] [id number] [place] [address] 15946- 1081 Oct, [facility] [address] [address] [id number] [place] [address] 46128- 7661 Oct, Generalized anxiety disorder F41.1 ; Major depressive disorder, recurrent episode with anxious distress F33.9 and Bipolar disorder, current episode manic without psychotic features F31.10 [facility] [address] [address]- 4815 Sep, [facility] [id number] [place] [address] 98395- 8874 Sep, [facility] [address] [place] [id number] [place] [address] 99009- 0496 Sep, Vitamin D deficiency E55.9 [facility] [id number] [place] [address] 87512- 1453 14 Sep, 2016 Vitamin D deficiency E55.9 [facility] [address] [place] [id number] [place] [address] 33727- 1906 Sep, [place] [address] [place] [address] 18287- 7565 Sep, Chronic kidney disease, stage 4 (severe) N18.4 ; Hypothyroid E03.9 ; Restless leg G25.81 ; Fibromyalgia M79.7 ; Essential ( primary) hypertension I10 ; Vitamin D deficiency E55.9 ; Dyspepsia R10.13 ; Anemia in chronic kidney disease D63.1 ; Chronic kidney disease, unspecified N18.9 ; Coronary artery disease involving huslia coronary artery of huslia heart , angina presence unspecified I25.10 ; Screening breast examination Z12.39 and Low back pain M54.5 [place] [address] [place] [id number] [place] [address] 23068- 7135 August, Generalized anxiety disorder F41.1 and Major depressive disorder, recurrent episode with anxious distress F33.9 [place] [address] [place] [id number] [place] [address] 08294- 3215 August, Generalized anxiety disorder F41.1 and Major depressive disorder, recurrent episode with anxious distress F33.9 [place] [address] [place] [id number] [place] [address] 58216- 1521 August, Fibromyalgia M79.7 [place] [address] [address] [id number] [place] [address] 58225- 6373 Jul, Generalized anxiety disorder F41.1 and Major depressive disorder, recurrent episode with anxious distress F33.9 [place] [address] [address] [id number] [place] [address] 70870- 8927 Jul, Fibromyalgia M79.7 [place] [address] [id number] [place] [address] 30044- 0660 Jul, Generalized anxiety disorder F41.1 [place] [address] [place] [id number] [place] [address] 75892- 9905 May, [place] [address] [place] [id number] [place] [address] 57601- 0237 May, Hypothyroid E03.9 [place] [address] [address]- 6282 08 May, 2016 Chronic kidney disease, stage 4 (severe) N18.4 ; Hypothyroid E03.9 ; Restless leg G25.81 ; Fibromyalgia M79.7 ; Essential ( primary) hypertension I10 ; Vitamin D deficiency E55.9 ; Dyspepsia R10.13 ; Acute non-recurrent maxillary sinusitis J01.00 ; Anemia in chronic kidney disease D63.1 ; Chronic kidney disease, unspecified N18.9 and Coronary artery disease involving huslia coronary artery of huslia heart, angina presence unspecified I25.10 [place] [address] [place] [address] [id number] [place] [address] 87823- 0062 May, Vitamin D deficiency, unspecified E55.9 [place] [address] [id number] [place] [address] 46707- 4165 May, Generalized anxiety disorder F41.1 and Major depressive disorder, recurrent episode with anxious distress F33.9 [place] [address] [address] [id number] [place] [address] 36741- 5511 Apr, Pain in right knee M25.561 and Pain in left knee M25.562 [place] [address] [address] [id number] [place] [address] 95017- 7458 Apr, [place] [address] [id number] [place] [address] 77348- 0599 Apr, [place] [address] [address] [id number] [place] [address] 42991- 1907 Apr, [place] [address] [address] [id number] [place] [address] 63948- 3378 Mar, Generalized anxiety disorder F41.1 and Major depressive disorder, recurrent episode with anxious distress F33.9 [place] [address] [id number] [place] [address] 87410- 2990 Mar, Generalized anxiety disorder F41.1 and Major depressive disorder, recurrent episode with anxious distress F33.9 [place] [address] [address] [id number] [place] [address] 99113- 3718 Mar, [facility] [address] 55642- 6761 Mar, [facility] [id number] [place] [address] 20387- 6171 Mar, [facility] [address] 94157- 2190 Mar, Asthma J45.909 and Fibromyalgia M79.7 [place] [address] 82166- 7488 Mar, Chronic kidney disease, stage 4 (severe) N18.4 ; Vitamin D deficiency E55.9 and Essential (primary) hypertension I10 [place] [address] 76076- 1813 Feb, [place] [address] 03471- 2069 Feb, Dysuria R30.0 ; Mixed stress and urge urinary incontinence N39.46 ; Fibromyalgia M79.7 and Chronic kidney disease, stage IV (severe) N18.4 [place] [id number] [place] [address] 57198- 3782 Feb, Chronic kidney disease, stage 4 (severe) N18.4 [place] [id number] [place] [address] 22561- 8283 Feb, Chronic kidney disease, stage 4 (severe) N18.4 [place] [id number] [place] [address] 09156- 5621 Feb, [place] [id number] [place] [address] 05479- 2669 Feb, Vitamin D deficiency, unspecified E55.9 [place] [id number] [place] [address] 68939- 8556 Jan, [place] [id number] [place] [address] 90861- 3719 Jan, [facility] [id number] [place] [address] 32349- 3696 Dec, [facility] [id number] [place] [address] 18047- 4052 Dec, Chronic kidney disease, stage 4 (severe) N18.4 [facility] [id number] [place] [address] 81406- 9870 Dec, Dysthymic disorder F34.1 and Generalized anxiety disorder F41.1 [place] [id number] [place] [address] 62608- 1187 Dec, [facility] [id number] [place] [address] 20613- 8131 Dec, [facility] [id number] [place] [address] 14561- 5511 Dec, Dysthymic disorder F34.1 and Generalized anxiety disorder F41.1 [facility] [id number] [place] [address] 15087- 1831 Dec, Dysuria R30.0 ; Chronic kidney disease, stage 4 (severe) N18.4 ; Hypertension I10 ; Dyspepsia R10.13 ; Yeast dermatitis B37.2 ; Palpitations R00.2 ; Hypothyroid E03.9 ; Functional 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 and Other seasonal allergic rhinitis J30.2 [facility] [id number] [place] [address] [id number] Dec, [facility] [id number] [place] [phone] Nov, Dysuria R30.0 and Stress incontinence N39.3 [facility] [id number] [place] [phone]- [address] Nov, [facility] [id number] [place] [address] [phone]- [address] Nov, [facility] [id number] [place] [address]- [address]797 Nov, Osteoarthritis of knees, bilateral M17.0 [place] [address] [address] Nov, Dysthymic disorder F34.1 and Generalized anxiety disorder F41.1 [place] [address] [address] Nov, [place] [address] [address] Nov, [place] [address] [address] Nov, Urgency of urination R39.15 [place] [address] [address] Nov, [place] [address] [address] Nov, Chronic kidney disease, stage 4 (severe) N18.4 [place] [address] [address] Oct, Hypertension I10 ; Coronary artery disease involving huslia coronary artery of huslia heart, angina presence unspecified I25.10 ; Palpitations R00.2 ; Hypothyroid E03.9 ; Right foot pain M79.671 ; Functional 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 and Other seasonal allergic rhinitis J30.2 [place] [address] [address] [place] [id number] [place] [address] 55057- 5591 Oct, Dysthymic disorder F34.1 and Generalized anxiety disorder F41.1 [place] [address] 39027- 7144 Sep, [place] [address] [place] [id number] [place] [address] 42011- 3527 Sep, [place] [address] 99575- 0122 Sep, [place] [id number] [place] [address] 39506- 2955 Sep, [place] [address] [place] [id number] [place] [address] 34235- 3753 Sep, [place] [address] [id number] [place] [address] 87034- 0755 Sep, Dysthymic disorder F34.1 and Generalized anxiety disorder F41.1 [place] [address] [place] [address] [id number] [place] [address] 51509- 0936 16 Sep, 2015 Asthma with acute exacerbation in adult J45.901 ; Dysuria R30.0 ; Chronic kidney disease, stage 4 (severe) N18.4 and History of anemia Z86.2 [place] [id number] [place] [address] 79020- 9246 Sep, Generalized anxiety disorder F41.1 and Dysthymic disorder F34.1 [place] [address] [place] [id number] [place] [address] 96865- 5329 August, Screening breast examination Z12.39 and Acute recurrent maxillary sinusitis J01.01 [place] [id number] [place] [address] 56731- 6817 August, Osteoarthritis of knees, bilateral M17.0 [place] [id number] [place] [address] 42117- 9322 August, Chronic kidney disease, stage 4 (severe) N18.4 ; Acute non- recurrent maxillary sinusitis J01.00 ; Urinary problem R39.89 ; Bowel habit changes R19.4 ; Functional 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 and History of colon polyps Z86.010 [place] [address] [place] [id number] [place] [address] 78542- 3254 Jul, Dysthymic disorder F34.1 and Generalized anxiety disorder F41.1 [place] [address] [id number] [place] [address] 18053- 0692 Jul, [facility] [address] [address]- 0736 Jul, Dysthymic disorder F34.1 ; Generalized anxiety disorder F41.1 and correction use of drug Z79.899 [facility] [address] [address]- 7835 Jul, [facility] [address] [place] [id number] [place] [address] 17054- 0410 Jun, [facility] [address] [address] [id number] [place] [address] 89059- 3905 Jun, [place] [address] [place] [id number] [place] [address] 01917- 9068 May, [place] [address] [place] [address] [id number] [place] [address] 67697- 7917 May, Dysthymic disorder F34.1 and Generalized anxiety disorder F41.1 [place] [id number] [place] [address] 54854- 0689 Apr, Kidney disease N28.9 [place] [address] [place] [id number] [place] [address] 44902- 4586 Apr, Generalized anxiety disorder F41.1 and Dysthymic disorder F34.1 [place] [address] [address] [id number] [place] [address] 47696- 9577 Apr, Chronic kidney disease, stage 4 (severe) N18.4 [place] [id number] [place] [address] 01540- 8438 Apr, Generalized anxiety disorder F41.1 ; Major depression, recurrent F33.9 and Sleep disturbance G47.9 [place] [id number] [place] [address] 68516- 8713 Mar, Generalized anxiety disorder F41.1 and Dysthymic disorder F34.1 [place] [address] [place] [id number] [place] [address] 10066- 0321 Mar, Generalized anxiety disorder F41.1 ; Dysthymic disorder F34.1 and Insomnia G47.00 [facility] [id number] [place] [address] 09961- 0081 Mar, [facility] [id number] [place] [address] 76792- 7286 Mar, [facility] [address] 39035- 5781 Mar, Osteoarthritis of knees, bilateral M17.0 [facility] [address] [address] [id number] [place] [address] 81273- 2036 Mar, Hypertension I10 ; Hypothyroid E03.9 ; Dysthymic disorder F34.1 ; Chronic kidney disease, stage 4 (severe) N18.4 and Nausea & vomiting R11.2 [place] [address] [place] [id number] [place] [address] 43450- 8716 Mar, Generalized anxiety disorder F41.1 ; Dysthymic disorder F34.1 and Insomnia G47.00 [facility] [address] [place] [id number] [place] [address] 93433- 4474 Mar, Dehydration E86.0 ; Chronic kidney disease, stage 4 (severe ) N18.4 and Nausea & vomiting R11.2 [facility] [address] [id number] [place] [address] 42337 -4210 Mar, Gastroenteritis K52.9 [facility] [address] [address] [id number] [place] [address] 46124- 8217 Mar, [facility] [address] [place] [id number] [place] [address] 16903- 9397 Mar, [place] [address] [place] [id number] [place] [address] 98453- 6625 Feb, Dysthymic disorder F34.1 and Generalized anxiety disorder F41.1 [facility] [address] [place] [id number] [place] [address] 02540- 9076 Jan, UTI (urinary tract infection) N39.0 ; Asthma J45.909 ; Coronary artery disease involving huslia coronary artery of huslia heart, angina presence unspecified I25.10 ; Hypertension I10 ; Hypothyroid E03.9 ; Vitamin D deficiency E55.9 ; Insomnia G47.00 ; Palpitations R00.2 ; Depressed F32.9 ; Restless leg G25.81 and Anxiety F41.9 [place] [address] 93748- 5704 Jan, Dysthymic disorder F34.1 and Generalized anxiety disorder F41.[address] 41907- 7311 Jan, [place] [address] 64778- 3116 Dec, [address] 80165- 8173 Dec, Alkalosis 276.3 ; Chronic kidney disease, 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.4 ; Hyperpotassemia 276.7 ; Secondary hyperparathyroidism, renal 588.81 ; Proteinuria 791.0 ; Unspecified vitamin D deficiency 268.9 ; Anemia in chronic kidney disease 285.21 ; Other and unspecified hyperlipidemia 272.4 ; Hypertension, essential, benign 401.1 and Chronic kidney disease (CKD), stage III (moderate) 585.3 [place] [id number] [place] [address] 38236- 9926 Dec, [place] [address] 40835- 6081 Dec, Depressive disorder, not elsewhere classified 311 and Generalized anxiety disorder 300.[address] 22477- 8240 Dec, [place] [address] 32857- 6778 08 Dec, 2014 [place] [address] 03434- 2253 Nov, Depressive disorder, not elsewhere classified 311 and Generalized anxiety disorder 300.02 [place] [address] [place] [id number] [place] [address] 30682- 6596 Nov, Arthritis of both knees 716.96 [place] [address] [place] [id number] [place] [address] 20217- 1223 Nov, PAF (paroxysmal atrial fibrillation) 427.31 ; CAD (coronary artery disease) 414.00 ; Chest pain 786.50 and Chronic kidney disease (CKD) stage G4/A1, severely decreased glomerular filtration rate (GFR) between 15-29 mL/min/1.73 square meter and albuminuria creatinine ratio less than 30 mg/g 585.4 [place] [id number] [place] [address] 80004- 3136 Oct, Coronary atherosclerosis of unspecified type of vessel, huslia or graft 414.00 ; Chronic kidney disease, 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.4 ; Hypertension 401.9 and Edema 782.3 [place] [address] [place] [id number] [place] [address] 18976- 2401 Oct, Depressive disorder, not elsewhere classified 311 and Generalized anxiety disorder 300.02 [place] [address] [place] [id number] [place] [address] 11107- 7225 Oct, Depressive disorder, not elsewhere classified 311 and Generalized anxiety disorder 300.02 [place] [address] [place] [id number] [place] [address] 89436- 3513 Oct, [place] [address] [place] [id number] [place] [address] 68082- 7026 Oct, [place] [address] [place] [id number] [place] [address] 36732- 6009 Sep, [place] [id number] [place] [address] 93027- 3817 Sep, Chronic kidney disease, 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.4 [place] [address] [place] [id number] [place] [address] 99629- 1518 Sep, [facility] [address] [address]- 1381 Sep, Coronary atherosclerosis of unspecified type of vessel, huslia or graft 414.00 ; Hypertension 401.9 ; Edema 782.3 and Hypothyroidism 244.9 [facility] [address] [place] [id number] [place] [address] 97026- 6103 Sep, Coronary atherosclerosis of unspecified type of vessel, huslia or graft 414.00 ; Hypertension 401.9 ; Fibromyalgia 729.1 ; Edema 782.3 ; Hypothyroidism 244.9 and Anemia 285.9 [facility] [address] [place] [id number] [place] [address] 83771- 3312 Sep, Anxiety disorder, unspecified 300.00 and Depressive disorder , not elsewhere classified 311 [facility] [address] [place] [id number] [place] [address] 07539- 9937 Sep, [facility] [address] [address] [id number] [place] [address] 34260- 2070 August, Generalized anxiety disorder 300.02 [facility] [address] [place] [id number] [place] [address] 58124- 9735 August, Closed fracture of lateral malleolus 824.2 [facility] [address] [place] [id number] [place] [address] 83638- 6960 Jul, [facility] [address] [address] [id number] [place] [address] 44984- 8389 Jul, [facility] [address] [address] [id number] [place] [address] 50252- 1857 Jun, [facility] [id number] [place] [address] 42396- 0606 Jun, [facility] [address] [place] [id number] [place] [address] 40517- 3185 Jun, [facility] [address] [address]- 0981 Jun, [facility] [address] [place] [address] [place] [address]- 3868 Jun, [facility] [place] [facility] [address] [id number] [place] [address]- 8363 Jun, [facility] [place] [facility] [address] [id number] [place] [address]- 4980 May, 2014 [facility] [place] [facility] [address] [id number] [place] [address]- 5103 May, 2014 [facility] [place] [facility] [address] [id number] [place] [address]- 4331 May, 2014 [facility] [place] [facility] [address] [id number] [place] [address]- 9884 May, 2014 [facility] [place] [facility] [address] [facility] [id number] [place] [address]- 5645 16 May, 2014 [facility] [place] [facility] [address] [facility] [id number] [place] [address]- 0202 16 May, 2014 [facility] [place] [facility] [address] [id number] [place] [address]- 6781 May, 2014 [facility] [place] [facility] [address] [facility] [id number] [place] [address]- 6886 May, 2014 [facility] [place] [facility] [address] [facility] [id number] [place] [address]- 2892 10 May, 2014 [facility] [place] [facility] [address] [facility] [id number] [place] [address]- 6904 May, [facility] [place] [facility] [address] [id number] [place] [address]- 5722 Apr, [facility] [place] [facility] [address] [id number] [place] [address]- 3770 Apr, [facility] [place] [facility] [address] [facility] [id number] [place] [address]- 7632 Mar, [facility] [place] [facility] [address] [facility] [id number] [place] [address]- 7465 Mar, [facility] [place] [facility] [address] [id number] [place] [address]- 3804 Mar, [facility] [place] [facility] [address] [id number] [place] [address]- 1953 Mar, [facility] [place] [facility] [address] [id number] [place] [address]- 8916 Mar, [facility] [place] [facility] [address] [id number] [place] [address]- 9845 Mar, [facility] [place] [facility] [address] [id number] [place] [address]- 8167 Mar, [facility] [place] [facility] [address] [id number] [place] [address]- 7789 Feb, [facility] [place] [facility] [address] [id number] [place] [address]- 2512 Feb, [facility] [place] [facility] [address] [id number] [place] [address]- 3172 Feb, [facility] [place] [facility] [address] [id number] [place] [address]- 1563 Jan, [facility] [place] [facility] [address] [id number] [place] [address]- 3744 Jan, [facility] [place] [facility] [address] [id number] [address]- 5979 Jan, [facility] [place] [facility] [address] [id number] [address]- 1846 20 Jan, 2014 [facility] [place] [facility] [address] [id number] [place] [address]- 9961 Jan, [facility] [place] [facility] [address] [id number] [place] [address]- 8268 Jan, [facility] [place] [facility] [address] [id number] [place] [address]- 6883 Jan, [facility] [place] [facility] [address] [id number] [place] [address]- 7756 Jan, [facility] [place] [facility] [address] [id number] [place] [address]- 2998 Jan, [facility] [place] [facility] [address] [id number] [place] [address]- 7287 Jan, [facility] [place] [facility] [address] [id number] [place] [address]- 2671 Nov, [facility] [place] [facility] [address] [id number] [place] [address]- 9124 Nov, [facility] [place] [facility] [address] [id number] [place] [address]- 1301 Nov, [facility] [place] [facility] [address] [id number] [place] [address]- 7239 Oct, [facility] [place] [facility] [address] [id number] [place] [address]- 6772 Oct, [facility] [place] [facility] [address] [id number] [place] [address]- 6031 Oct, [facility] [place] [facility] [address] [id number] [place] [address]- 8113 Oct, [facility] [place] [facility] [address] [id number] [place] [address]- 8807 Oct, [facility] [place] [facility] [address] [id number] [place] [address]- 0244 Oct, [facility] [place] [facility] [address] [id number] [place] [address]- 5337 Oct, [facility] [place] [facility] [address] [id number] [place] [address]- 0974 Oct, [facility] [place] [facility] [address] [id number] [place] [address]- 2397 Oct, [facility] [place] [facility] [address] [id number] [place] [address]- 3170 Sep, [facility] [place] [facility] [address] [id number] [place] [address]- 5227 Sep, [facility] [place] [facility] [address] [id number] [place] [address]- 6548 Sep, [facility] [place] [facility] [address] [id number] [place] [address]- 3269 Sep, [facility] [place] [facility] [address] [id number] [place] [address]- 2318 Sep, [facility] [place] [facility] [address] [id number] [place] [address]- 7417 Sep, [facility] [place] [facility] [address] [id number] [place] [address]- 5739 Sep, [facility] [place] [facility] [address] [id number] [place] [address]- 1596 Sep, [facility] [place] [facility] [address] [id number] [place] [address]- 5388 Sep, [facility] [place] [facility] [address] [id number] [place] [address]- 0463 August, [facility] [place] [facility] [address] [id number] [place] [address]- 1432 August, [facility] [place] [facility] [address] [id number] [place] [address]- 3604 August, [facility] [place] [facility] [address] [id number] [address]- 4140 August, [facility] [place] [facility] [address] [id number] [place] [address]- 0451 August, [facility] [place] [facility] [address] [id number] [place] [address]- 4296 August, [facility] [place] [facility] [address] [id number] [place] [address]- 1262 Jul, [facility] [place] [facility] [address] [id number] [place] [address]- 8153 Jul, [facility] [address] [id number] [place] [address]- 8336 Jul, [facility] [place] [facility] [address] [id number] [place] [address]- 5982 08 Jul, 2013 [facility] [place] [facility] [address] [facility] [id number] [place] [address]- 3388 Jul, [facility] [place] [facility] [address] [id number] [place] [address]- 3835 Jul, [facility] [place] [facility] [address] [id number] [place] [address]- 7633 Jun, [facility] [place] [facility] [address] [id number] [place] [address]- 5989 Jun, [facility] [place] [facility] [address] [id number] [place] [address]- 5297 May, [facility] [place] [facility] [address] [facility] [id number] [place] [address]- 0834 May, [facility] [place] [facility] [address] [facility] [id number] [place] [address]- 0072 May, [facility] [place] [facility] [address] [facility] [id number] [place] [address]- 9157 May, [facility] [place] [facility] [address] [facility] [id number] [place] [address]- 6706 Apr, [facility] [place] [facility] [address] [facility] [id number] [place] [address]- 7961 Apr, [facility] [place] [facility] [address] [id number] [place] [address]- 7837 Mar, [facility] [place] [facility] [address] [facility] [id number] [place] [address]- 2590 Mar, [facility] [place] [facility] [address] [facility] [id number] [place] [address]- 1062 17 Mar, 2013 [facility] [place] [facility] [address] [id number] [place] [address]- 4996 Mar, [facility] [place] [facility] [address] [id number] [place] [address]- 4868 Mar, [facility] [place] [facility] [address] [id number] [place] [address]- 0909 Mar, [facility] [place] [facility] [address] [id number] [place] [address]- 0317 Feb, [facility] [place] [facility] [address] [id number] [place] [address]- 3407 Feb, [facility] [place] [facility] [address] [id number] [place] [address]- 5145 Feb, [facility] [place] [facility] [address] [id number] [place] [address]- 1834 Feb, [facility] [place] [facility] [address] [id number] [place] [address]- 6372 Feb, [facility] [place] [facility] [address] [id number] [place] [address]- 0055 Feb, [facility] [place] [facility] [address] [id number] [place] [address]- 2223 Jan, [facility] [place] [facility] [address] [id number] [place] [address]- 9540 Jan, [facility] [place] [facility] [address] [id number] [place] [address]- 1587 Jan, [facility] [place] [facility] [address] [id number] [place] [address]- 3785 Jan, [facility] [place] [facility] [address] [id number] [place] [address]- 0845 08 Jan, 2013 [facility] [place] [facility] [address] [id number] [place] [address]- 0089 Jan, [facility] [place] [facility] [address] [id number] [place] [address]- 5096 Dec, [facility] [place] [facility] [address] [id number] [place] [address]- 5899 Dec, [facility] [place] [facility] [address] [id number] [place] [address]- 4676 Nov, [facility] [place] [facility] [address] [id number] [place] [address]- 5553 Nov, [facility] [place] [facility] [address] [id number] [place] [address]- 6716 Oct, [facility] [place] [facility] [address] [id number] [place] [address]- 4178 Oct, [facility] [place] [facility] [address] [id number] [place] [address]- 3802 Oct, [facility] [place] [facility] [address] [id number] [place] [address]- 1014 Oct, [facility] [place] [facility] [address] [id number] [place] [address]- 7482 Oct, [facility] [place] [facility] [address] [id number] [place] [address]- 1129 Oct, [facility] [place] [facility] [address] [id number] [place] [address]- 8968 Sep, [facility] [place] [facility] [address] [id number] [place] [address]- 9584 Sep, [facility] [place] [facility] [address] [id number] [place] [address]- 8768 Sep, [facility] [place] [facility] [address] [id number] [place] [address]- 4237 Sep, [facility] [place] [facility] [address] [id number] [place] [address] August, [facility] [place] [facility] [address] [id number] [place] [address] August, [facility] [place] [facility] [address] [id number] [place] [address] August, [facility] [address] [id number] [place] [address] August, [facility] [address] [id number] [place] [address] August, [facility] [address] [id number] [place] [address] Jul, [facility] [address] [id number] [place] [address] Jul, [facility] [address] [id number] [place] [address] Jul, [facility] [address] [id number] [place] [address] Jul, [facility] [address] [id number] [place] [address] Jul, [facility] [address] [id number] [place] [address] Jul, [facility] [address] [id number] [place] [address] Jul, [facility] [address] [id number] [place] [address] Jul, [facility] [address] [id number] [place] [address] Jul, [facility] [address] [id number] [place] [address] Jul, [facility] [place] [facility] [address] [facility] [id number] [id number] Jun, [facility] [address] [facility] [id number] [place] [address] Jun, [facility] [address] [facility] [id number] [address] Jun, [facility] [address] [id number] [place] [address] Jun, [facility] [address] [id number] [place] [address] Jun, [facility] [place] [facility] [address] [id number] [place] [address] May, [facility] [place] [facility] [address] [id number] [place] [address] May, [facility] [address] [id number] [place] [address] May, [facility] [address] [id number] [place] [address] Apr, [facility] [address] [id number] [place] [address] Apr, [facility] [address] [id number] [place] [address] Apr, [facility] [address] [id number] [place] [address] Apr, [facility] [address] [id number] [place] [address] Apr, [facility] [address] [id number] [place] [address] Apr, [facility] [address] [id number] [place] [address] Mar, [facility] [place] [facility] [address] [id number] [place] [address] Mar, [facility] [place] [facility] [address] [id number] [place] [address] Mar, [facility] [place] [facility] [address] [id number] [place] [address] Mar, [facility] [place] [facility] [address] [id number] [address] Feb, [facility] [place] [facility] [address] [id number] [place] [address] Feb, [facility] [place] [facility] [address] [id number] [place] [address] Feb, [facility] [place] [facility] [address] [id number] [place] [address] Feb, [facility] [place] [facility] [address] [id number] [place] [address] Feb, [facility] [place] [facility] [address] [id number] [place] [address] Feb, [facility] [place] [facility] [address] [id number] [place] [address] Feb, [facility] [place] [facility] [address] [id number] [place] [address] Feb, [facility] [place] [facility] [address] [id number] [place] [address] Feb, [facility] [place] [facility] [address] [id number] [address] Feb, [facility] [place] [facility] [address] [id number] [place] [address] Feb, [facility] [place] [facility] [address] [id number] [place] [address] Feb, [facility] [place] [facility] [address] [id number] [place] [address] Feb, [facility] [place] [facility] [address] [id number] [place] [address] Feb, [facility] [place] [facility] [address] [id number] [place] [address] Feb, [facility] [place] [facility] [address] [id number] [place] [address]- [address] Feb, [facility] [place] [facility] [address] [id number] [place] [address] 31 Jan, 2011 [facility] [place] [facility] [address] [id number] [place] [address]- [address] 31 Jan, 2011 [facility] [place] [facility] [address] [id number] [place] [address] 31 Jan, 2011 [facility] [place] [facility] [address] [id number] [place] [address] 31 Jan, 2011 [facility] [place] [facility] [address] [id number] [place] [address] 30 Jan, 2011 [facility] [place] [facility] [address] [id number] [place] [address] Jan, 2011 [facility] [place] [facility] [address] [id number] [place] [address] 78[address] 25 Jan, 2011 [facility] [place] [facility] [address] [id number] [place] [address] 16 Jan, 2012 [facility] [place] [facility] [address] [id number] [place] [address]297 16 Jan, 2012 [facility] [place] [facility] [address] [id number] [place] [address] 15 Jan, 2012 [facility] [place] [facility] [address] [id number] [place] [address]774 15 Jan, 2012 [facility] [place] [facility] [address] [id number] [place] [address] Jan, [facility] [place] [facility] [address] [id number] [place] [address]28 26 Dec, 2011 [facility] [place] [facility] [address] [id number] [place] [address] 6639 26 Dec, 2011 [facility] [place] [facility] [address] [id number] [place] [address] 3949 24 Sep, 2011 [facility] [place] [facility] [address] [id number] [place] [address]- 1203 23 Dec, 2011 [facility] [place] [facility] [address] [id number] [place] [address]125 22 Sep, 2011 [facility] [place] [facility] [address] [id number] [place] [address] 21 Dec, 2011 [facility] [place] [facility] [address] [id number] [place] [address] 8186 20 Sep, 2011 [facility] [place] [facility] [address] [id number] [place] [address] 2546 20 Sep, 2011 [facility] [place] [facility] [address] [id number] [place] [address]- 0086 07 Sep, 2011 [facility] [place] [facility] [address] [id number] [place] [address]- 5520 06 Sep, 2011 [facility] [place] [facility] [address] [id number] [place] [address]- 5812 06 Dec, 2011 [facility] [place] [facility] [address] [id number] [place] [address]- 9088 05 Dec, 2011 [facility] [place] [facility] [address] [id number] [place] [address]- 2715 23 Nov, 2011 [facility] [place] [facility] [address] [id number] [place] [address]- 0817 17 Nov, 2011 [facility] [place] [facility] [address] [id number] [place] [address] 4204 13 Nov, 2011 [facility] [place] [facility] [address] [id number] [place] [address]- 4658 10 Nov, 2011 [facility] [place] [facility] [address] [id number] [place] [address]- 3613 08 Nov, 2011 [facility] [place] [facility] [address] [id number] [place] [address]- 8525 07 Nov, 2011 [facility] [place] [facility] [address] [id number] [place] [address] 2042 Nov, [facility] [place] [facility] [address] [id number] [place] [address]161 Nov, [facility] [address] [id number] [place] [address] 9728 Oct, [facility] [place] [facility] [address] [id number] [place] [address] 7926 Oct, [facility] [place] [facility] [address] [id number] [place] [address] 3778 Oct, [facility] [place] [facility] [address] [id number] [place] [address] 6712 Oct, [facility] [place] [facility] [address] [id number] [place] [address] 9503 Oct, [facility] [place] [facility] [address] [id number] [place] [address] 3152 Oct, [facility] [address] [id number] [place] [address] 5774 Oct, [facility] [place] [facility] [address] [id number] [place] [address] 7125 Sep, [facility] [place] [facility] [address] [id number] [place] [address] 7775 Sep, [facility] [place] [facility] [address] [id number] [place] [address] 7496 August, [facility] [place] [facility] [address] [id number] [place] [address] 4332 August, [facility] [place] [facility] [address] [id number] [place] [address] 6[address] August, [facility] [place] [facility] [address] [id number] [place] [address] 5256 August, [facility] [place] [facility] [address] [id number] [place] [address] 1518 Jul, [facility] [place] [facility] [address] [id number] [place] [address]- 5026 Jul, [facility] [place] [facility] [address] [id number] [place] [address]- 6071 06 Jul, 2011 [facility] [place] [facility] [address] [id number] [place] [address] 4905 Jul, [facility] [place] [facility] [address] [id number] [place] [address] 6066 Jul, [facility] [place] [facility] [address] [id number] [place] [address] 0957 Jul, [facility] [place] [facility] [address] [id number] [place] [address] 4217 Jul, [facility] [place] [facility] [address] [id number] [place] [address]- 6910 Jul, [facility] [place] [facility] [address] [id number] [place] [address]- 0685 Jul, [facility] [place] [facility] [address] [id number] [place] [address] 4166 Jun, [facility] [place] [facility] [address] [id number] [place] [address] 9739 Jun, [facility] [place] [facility] [address] [id number] [place] [address]- 8310 15 Jun, 2011 [facility] [place] [facility] [address] [id number] [place] [address]- 0217 14 Jun, 2011 [facility] [place] [facility] [address] [id number] [place] [address]- 6973 Jun, [facility] [place] [facility] [address] [id number] [place] [address]- 3228 Jun, [facility] [place] [facility] [address] [id number] [place] [address] Jun, [facility] [place] [facility] [address] [id number] [place] [address]- 9034 May, [facility] [place] [facility] [address] [id number] [place] [address] 2456 May, [facility] [address] [id number] [place] [address] 3866 May, [facility] [address] [id number] [place] [address]- 5456 May, [facility] [address] [id number] [place] [address]- 4406 May, [facility] [address] [id number] [place] [address]- 5817 Apr, [facility] [address] [id number] [place] [address]- 9147 Apr, [facility] [address] [id number] [place] [address]- 9435 Apr, [facility] [address] [id number] [place] [address]- 0590 Apr, [facility] [address] [id number] [place] [address]- 4949 Apr, [facility] [address] [id number] [place] [address]- 2641 Mar, [facility] [address] [id number] [place] [address]- 4443 Mar, [facility] [address] [id number] [place] [address]- 8984 Mar, [facility] [place] [facility] [address] [id number] [place] [address]- 2547 Mar, [facility] [place] [facility] [address] [id number] [place] [address]- 4846 Mar, [facility] [place] [facility] [address] [id number] [place] [address]- 7793 Mar, [facility] [place] [facility] [address] [id number] [place] [address]- 0439 Mar, [facility] [place] [facility] [address] [id number] [place] [address]- 0557 11 Feb, 2011 [facility] [place] [facility] [address] [id number] [place] [address]- 4083 10 Feb, 2011 [facility] [place] [facility] [address] [id number] [place] [address]- 9946 08 Feb, 2011 [facility] [place] [facility] [address] [id number] [place] [address]- 7719 Feb, [facility] [place] [facility] [address] [id number] [place] [address]- 1934 Jan, [facility] [place] [facility] [address] [id number] [place] [address]- 4881 Jan, [facility] [place] [facility] [address] [id number] [place] [address]- 1338 Jan, [facility] [place] [facility] [address] [id number] [place] [address]- 1738 Jan, [facility] [place] [facility] [address] [id number] [place] [address]- 1107 Nov, [facility] [place] [facility] [address] [id number] [place] [address]- 8512 Mar, [facility] [place] [facility] [address] [id number] [place] [address] 1976 Mar, [facility] [place] [facility] [address] [id number] [place] [address]- 6816 Mar, [facility] [place] [facility] [address] [id number] [place] [address]- 7963 Mar, [facility] [place] [facility] [address] [id number] [place] [address]- 4306 Mar, [facility] [place] [facility] [address] [id number] [place] [address]- 0886 Mar, [facility] [place] [facility] [address] [id number] [place] [address]- 1193 Feb, [facility] [address] [facility] [id number] [place] [address] 9607 30 Feb, 2010 [facility] [address] [id number] [address] Jan, [facility] [address] [id number] [place] [address] Jan, [facility] [address] [id number] [place] [address] 6[address] Jan, IMMUNIZATIONS No Known Immunizations SOCIAL HISTORY Never Assessed REASON FOR VISIT Refill request PLAN OF CARE VITAL SIGNS MEDICATIONS Medication Instructions Dosage Frequency Start Date End Date Duration Status Synthroid 150 MCG Orally Once a day TAKE 1 TABLET BY MOUTH ONCE DAILY 24h 30 Active RESULTS No Results PROCEDURES No Known [...] 2020 & 2007 Surgical History Bladder surgery [facility] 03/2016 Surgical History Neurotransmitter placed 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
--- OUTSIDE RECORDS SUMMARY | 2018-05-29 07:47 | XMS REPORT ---
Author Author RUSTAM MANDEL Organization [facility] Address [address] [place] [address] Care Team Providers Care Theater Usher Name Role Phone RUSTAM MANDEL Unavailable PROBLEMS Type Condition ICD9-CM Code [id number] Code Onset Dates Condition Status SNOMED Code Problem Low back pain M54.5 Active 129107223 Problem Abnormal chest CT R93.8 Active 420245188 Problem Dysthymic disorder F34.1 Active 06653307 Problem Generalized anxiety disorder F41.1 Active 00844142 Problem Coronary artery disease involving [place] coronary artery of [place] heart, angina presence unspecified I25.10 Active [id number] Problem Restless leg G25.81 Active 56537246 Problem Hypothyroid E03.9 Active 16416056 Problem Insomnia G47.00 Active 566973542 Problem Asthma J45.909 Active 445133100 Problem Chronic kidney disease, unspecified N18.9 Active 374597945 Problem Palpitations R00.2 Active 17386280 Problem Anemia in chronic kidney disease D63.1 Active [id number] Problem Depressed F32.9 Active 67143145 Problem Bipolar disorder, current episode manic without psychotic features F31.10 Active 411240766 Problem Primary osteoarthritis of left knee M17.12 Active 412286956 Problem Degenerative tear of medial meniscus of left knee M23.204 Active 395669485 Problem Chronic pain syndrome G89.4 Active 269334774 Problem Restless leg syndrome G25.81 Active 90744620 Problem History of colon polyps Z86.010 Active 761305240 Problem Functional 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 Active 85134422 Problem Chronic kidney disease, stage 4 (severe) N18.4 Active 513188473 Problem Stage 3 chronic kidney disease N18.3 Active 482031856 Problem Mood disorder F39 Active 35899733 Problem Seasonal allergic rhinitis due to pollen J30.1 Active 62131833 Problem Body mass index (BMI) of 40.0-44.9 in adult Z68.41 Active 567569686 Problem Other seasonal allergic rhinitis J30.2 Active 401767662 Problem Long-term use of high-risk medication Z79.899 Active 678664439 Problem Hypokalemia E87.6 Active 42447683 Problem Asthma with acute exacerbation in adult J45.901 Active 952041417 Problem History of anemia Z86.2 Active 047567772 Problem Vitamin D deficiency E55.9 Active 38637165 Problem Essential (primary) hypertension I10 Active 70926443 Problem Fibromyalgia M79.7 Active 102325956 Problem Mixed stress and urge urinary incontinence N39.46 Active 990197704 ALLERGIES No Known Allergies ENCOUNTERS Encounter Location Date Diagnosis [place] [id number] [address] Jan, [place] [address] [address]- [address] Jan, [place] [address] [address]- [address] Dec, [place] [address] [address]- [address]409 Dec, Fibromyalgia M79.7 [facility] [address] [address]- [address] Nov, [facility] [address] [address]- 978[address] Nov, [facility] [address] 20394- 9482 Nov, [facility] [address] [address]- 4890 Nov, Fibromyalgia M79.7 ; Vision changes H53.9 ; Chest wall pain R07.89 and Chronic pain syndrome G89.4 [facility] [address] [address]- 111[address] Nov, [facility] [address] 20528- 8732 Nov, Rash of hands R21 [facility] [id number] [place] [address] 49398- 7795 15 Nov, 2017 Generalized anxiety disorder F41.1 and Major depressive disorder, recurrent episode with anxious distress F33.9 [facility] [address] [place] [id number] [place] [address] 13216- 8920 Nov, Fibromyalgia M79.7 [facility] [address] [place] [id number] [place] [address] 55996- 4110 Nov, Complicated UTI (urinary tract infection) N39.0 [place] [address] [place] [id number] [place] [address] 38751- 6680 Oct, [place] [address] [place] [id number] [place] [address] 84166- 6063 Oct, Generalized anxiety disorder F41.1 and Major depressive disorder, recurrent episode with anxious distress F33.9 [place] [address] [place] [id number] [place] [address] 54318- 9235 Oct, [place] [address] [place] [id number] [place] [address] 23630- 3029 Oct, Fibromyalgia M79.7 [place] [address] [place] [id number] [place] [address] 31803- 7989 Sep, Restless leg syndrome G25.81 and Restless leg G25.81 [place] [address] [place] [id number] [place] [address] 28039- 4169 Sep, [place] [address] [place] [id number] [place] [address] 54681- 7375 Sep, Seasonal allergic rhinitis due to pollen J30.1 ; Screening for breast cancer Z12.31 ; Chest pain at rest R07.9 ; Restless leg syndrome G25.81 ; Essential (primary) hypertension I10 and Depressed F32.9 [place] [id number] [place] [address] 16349- 6378 August, Fibromyalgia M79.7 [place] [address] [place] [address]- 96[address] August, [facility] [address] [place] [id number] [place] [address] 33034- 8982 August, [facility] [address] [place] [id number] [place] [address] 91479- [address]34 August, Abnormal chest [address] R93.8 [place] [address] [place] [id number] [place] [address] 97651- 8729 August, Generalized anxiety disorder F41.1 and Major depressive disorder, recurrent episode with anxious distress F33.9 [place] [address] [place] [id number] [place] [address] 83856- [address]24 August, Ab[address] chest [address] R93.8 [place] [address] [place] [id number] [place] [address] 77215- 2275 Jul, [place] [address] [place] [id number] [place] [address] 73077- 3158 Jul, Chronic kidney disease, stage 4 (severe) N18.4 [place] [address] [place] [id number] [place] [address] 40233- 9364 Jul, [place] [address] [place] [id number] [place] [address] 98373- 3785 Jul, Restless leg G25.81 ; Mixed stress and urge urinary incontinence N39.46 and Fibromyalgia M79.7 [place] [address] [place] [id number] [place] [address] 49880- 9032 Jul, Chronic kidney disease, stage 4 (severe) N18.4 [place] [address] [place] [id number] [place] [address] 07765- 1257 Jun, Orthostatic hypotension I95.1 ; Chronic kidney disease, stage 4 (severe) N18.4 ; Chest wall discomfort R07.89 and Body mass index (BMI) of 40.0-44.9 in adult Z68.41 [place] [address] [place] [id number] [place] [address] 72105- 9458 Jun, [facility] [address] [place] [address] 05708- 6481 Jun, Orthostatic hypotension I95.1 [facility] [address] [place] [id number] [place] [address] 92291- 3279 Jun, [facility] [address] [place] [id number] [place] [address] 87988 -4612 Jun, Orthostatic hypotension I95.1 ; Dysuria R30.0 and Acute cystitis without hematuria N30.00 [facility] [address] [place] [id number] [place] [address] 83700- 2238 Jun, [facility] [address] [place] [id number] [place] [address] 45554- 9817 Jun, Chronic kidney disease, stage 4 (severe) N18.4 [facility] [address] [place] [id number] [place] [address] 46321- 3588 Jun, Fibromyalgia M79.7 [facility] [address] [place] [id number] [place] [address] 96477- 1275 Jun, [facility] [address] [place] [id number] [place] [address] 57995- 9284 Jun, [facility] [address] [place] [id number] [place] [address] 20696- [address] May, [address] R93.8 and Stage 3 chronic kidney disease N18.3 [facility] [address] [place] [id number] [place] [address] 04668- 0293 May, Chronic kidney disease, stage 4 (severe) N18.4 [facility] [address] [place] [id number] [place] [address] 21886- 4442 May, Chronic kidney disease, stage 4 (severe) N18.4 [facility] [address] [place] [id number] [place] [address] 20271- [address] May, [address] R93.8 [facility] [address] [address]- 9487 May, [facility] [address] [address]- 1731 May, [facility] [address] [address]- 3954 May, Generalized anxiety disorder F41.1 and Major depressive disorder, recurrent episode with anxious distress F33.9 [facility] [address] [address]- 4954 May, Mood disorder F39 [facility] [address] [place] [address] 71099- 3948 Apr, [facility] [address] [address]- 6938 Apr, Infected skin lesion L08.9 and Muscle strain of right shoulder region, initial encounter S46.911A [facility] [address] [address]- 1511 Apr, Generalized anxiety disorder F41.1 and Major depressive disorder, recurrent episode with anxious distress F33.9 [facility] [address] [address]- 8439 Apr, [facility] [address] [address]- 5189 Apr, Recent urinary tract infection Z87.440 and Hypothyroid E03.9 [facility] [address], [place] [address]- 2332 Apr, Generalized anxiety disorder F41.1 and Major depressive disorder, recurrent episode with anxious distress F33.9 [facility] [address], [place] [address]- 7523 Apr, Recent urinary tract infection Z87.440 [facility] [address], [place] [address]- 5541 Mar, [facility] [address] [address] Mar, Dysuria R30.0 ; Acute cystitis without hematuria N30.00 and BMI 40.0-44.9, adult Z68.41 [facility] [address], [place] [address]- 6214 14 Mar, 2017 [place] [address] [place] [id number] [place] [address] 15701- 8636 Mar, [facility] [address] [place] [id number] [place] [address] 46176- 6877 Mar, Generalized anxiety disorder F41.1 and Major depressive disorder, recurrent episode with anxious distress F33.9 [place] [id number] [place] [address] 67923- 8032 Feb, Conjunctivitis, bacterial H10.9 [place] [address] [place] [id number] [place] [address] 95493- 4010 Feb, [facility] [address] [place] [id number] [place] [address] 78371 -9849 Feb, Conjunctivitis, bacterial H10.9 [place] [address] [place] [address] 93696- 8352 Feb, [facility] [address] [address] Feb, Dysuria R30.0 ; Acute cystitis N30.00 and BMI 40.0-44.9, adult Z68.41 [place] [address] [place] [address] 29945- 3141 Feb, [place] [address] [place] [id number] [place] [address] 36334- 6910 Feb, Generalized anxiety disorder F41.1 and Major depressive disorder, recurrent episode with anxious distress F33.9 [place] [address] [place] [address] 60464- 3263 Feb, Mood disorder F39 and BMI 40.0-44.9, adult Z68.41 [facility] [address] [place] [id number] [place] [address] 07687- 9158 Jan, [facility] [address] [place] [id number] [place] [address] 71095- 1774 Jan, [facility] [address] [place] [id number] [place] [address] 54718- 9934 Jan, Hypothyroid E03.9 [facility] [address] [place] [id number] [place] [address] 63074- 1496 Jan, [place] [address] [place] [id number] [place] [address] 81378- 8890 Jan, Chronic kidney disease, unspecified N18.9 ; Hypokalemia E87.6 ; Essential (primary) hypertension I10 ; Fibromyalgia M79.7 ; Coronary artery disease involving [place] coronary artery of [place] heart, angina presence unspecified I25.10 ; Hypothyroid E03.9 and Encounter for immunization Z23 [facility] [address] [place] [id number] [place] [address] 47487- 0366 Jan, Hypothyroid E03.9 [place] [address] [place] [id number] [place] [address] 00736- 7215 Jan, [facility] [address] [place] [id number] [place] [address] 38406- 3138 Dec, Vitamin D deficiency E55.9 [facility] [address] [place] [id number] [place] [address] 28835- 9672 Dec, Primary osteoarthritis of left knee M17.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 [facility] [address] [place] [id number] [place] [address] 99153- 2600 Dec, Fibromyalgia M79.7 [facility] [address] [place] [id number] [place] [address] 97723- 5454 18 Dec, 2016 Mood disorder F39 [facility] [address] [place] [address]- 6269 13 Dec, 2016 [facility] [address] [facility] [id number] [address]- 8965 13 Dec, 2016 Generalized anxiety disorder F41.1 and Major depressive disorder, recurrent episode with anxious distress F33.9 [facility] [address], [place] [address]- 0847 11 Dec, 2016 [facility] [address], [place] [address]- 5963 08 Dec, 2016 Streptococcal meningitis G00.2 [facility] [id number] [place] [address] 95110- 8300 07 Dec, 2016 Streptococcal meningitis G00.2 [facility] [address], [place] [address]- 8999 07 Dec, 2016 [facility] [id number] [place] [address] 54783- 6410 06 Dec, 2016 Streptococcal meningitis G00.2 [facility] [address], [place] [address]- 5737 06 Dec, 2016 [facility] [id number] [place] [address] 28232- 8506 06 Dec, 2016 Major depressive disorder, recurrent episode with anxious distress F33.9 [facility] [address], [place] [address]- 7573 Nov, Fever, unspecified fever cause R50.9 [facility] [address], [place] [address]- 9224 24 Nov, 2016 [facility] [id number] [place] [address] 38131- 3298 16 Nov, 2016 Hypothyroid E03.9 [facility] [address] [place] [address] [address]- 3079 10 Nov, 2016 Generalized anxiety disorder F41.1 and Major depressive disorder, recurrent episode with anxious distress F33.9 [facility] [address], [place] [address]- 4110 Nov, [facility] [address] [address] Oct, Dental examination Z01.20 [facility] [address] [place] [address] 66759- 8712 Oct, Generalized anxiety disorder F41.1 and Major depressive disorder, recurrent episode with anxious distress F33.9 [facility] [address] [place] [address] 18745- 8354 Oct, Chronic kidney disease, stage 4 (severe) N18.4 [facility] [address] [place] [id number] [place] [address] 44869- 6874 Oct, [place] [address] [place] [id number] [place] [address] 39895- 2574 Oct, Fibromyalgia M79.7 [facility] [id number] [place] [address] 75827- 4918 Oct, [facility] [address] [place] [id number] [place] [address] 94308- 7030 Oct, Generalized anxiety disorder F41.1 ; Major depressive disorder, recurrent episode with anxious distress F33.9 and Bipolar disorder, current episode manic without psychotic features F31.10 [place] [address], [place] [address]- 9205 Sep, [facility] [id number] [place] [address] 81836- 2541 Sep, [facility] [address] [place] [address] 13175- 5325 Sep, Vitamin D deficiency E55.9 [facility] [address], [place] [address]- 2543 14 Sep, 2016 Vitamin D deficiency E55.9 [facility] [id number] [place] [address] 65519366- 7380 Sep, [place] [address] [place] [address] 14059- 3971 Sep, Chronic kidney disease, stage 4 (severe) N18.4 ; Hypothyroid E03.9 ; Restless leg G25.81 ; Fibromyalgia M79.7 ; Essential ( primary) hypertension I10 ; Vitamin D deficiency E55.9 ; Dyspepsia R10.13 ; Anemia in chronic kidney disease D63.1 ; Chronic kidney disease, unspecified N18.9 ; Coronary artery disease involving [place] coronary artery of [place] heart , angina presence unspecified I25.10 ; Screening breast examination Z12.39 and Low back pain M54.5 [place] [address] 77861- 0260 August, Generalized anxiety disorder F41.1 and Major depressive disorder, recurrent episode with anxious distress F33.9 [place] [address] [place] [id number] [place] [address] 04251- 9014 August, Generalized anxiety disorder F41.1 and Major depressive disorder, recurrent episode with anxious distress F33.9 [place] [address] [place] [id number] [place] [address] 54101- 4627 August, Fibromyalgia M79.7 [place] [address] [place] [id number] [place] [address] 15432- 6815 Jul, Generalized anxiety disorder F41.1 and Major depressive disorder, recurrent episode with anxious distress F33.9 [place] [address] [place] [id number] [place] [address] 32886- 6300 Jul, Fibromyalgia M79.7 [place] [address] [place] [id number] [place] [address] 47854- 8439 Jul, Generalized anxiety disorder F41.1 [place] [address] [place] [id number] [place] [address] 39150- 0510 May, [place] [address] [place] [id number] [place] [address] 59807- 8623 May, Hypothyroid E03.9 [place] [address], [place] [address]- 5509 08 May, 2016 Chronic kidney disease, stage 4 (severe) N18.4 ; Hypothyroid E03.9 ; Restless leg G25.81 ; Fibromyalgia M79.7 ; Essential ( primary) hypertension I10 ; Vitamin D deficiency E55.9 ; Dyspepsia R10.13 ; Acute non-recurrent maxillary sinusitis J01.00 ; Anemia in chronic kidney disease D63.1 ; Chronic kidney disease, unspecified N18.9 and Coronary artery disease involving [place] coronary artery of [place] heart, angina presence unspecified I25.10 [place] [address] [place] [id number] [place] [address] 71671- 5134 May, Vitamin D deficiency, unspecified E55.9 [place] [address] [place] [id number] [place] [address] 49072- 3859 May, Generalized anxiety disorder F41.1 and Major depressive disorder, recurrent episode with anxious distress F33.9 [place] [address] [place] [id number] [place] [address] 93603- 9491 Apr, Pain in right knee M25.561 and Pain in left knee M25.562 [place] [address] [place] [id number] [place] [address] 55977- 1761 Apr, [place] [address] [place] [id number] [place] [address] 90225- 3279 Apr, [place] [address] [place] [id number] [place] [address] 52251- 3954 Apr, [place] [address] [place] [id number] [place] [address] 87097- 2867 Mar, Generalized anxiety disorder F41.1 and Major depressive disorder, recurrent episode with anxious distress F33.9 [place] [address] [place] [id number] [place] [address] 17144- 3097 Mar, Generalized anxiety disorder F41.1 and Major depressive disorder, recurrent episode with anxious distress F33.9 [place] [address] [place] [address] [place] [address]- 1087 Mar, [facility] [address] [id number] [place] [address] 13275- 2600 Mar, [facility] [address] [place] [id number] [place] [address] 60466- 8675 Mar, [facility] [address] 16600- 3807 Mar, Asthma J45.909 and Fibromyalgia M79.7 [facility] [address] 61430- 2601 Mar, Chronic kidney disease, stage 4 (severe) N18.4 ; Vitamin D deficiency E55.9 and Essential (primary) hypertension I10 [place] [address] [place] [id number] [place] [address] 76661- 1111 Feb, [facility] [address] 30656- 5279 Feb, Dysuria R30.0 ; Mixed stress and urge urinary incontinence N39.46 ; Fibromyalgia M79.7 and Chronic kidney disease, stage IV (severe) N18.4 [place] [address] [place] [id number] [place] [address] 00475- 0727 Feb, Chronic kidney disease, stage 4 (severe) N18.4 [place] [address] [place] [id number] [place] [address] 97984- 2868 Feb, Chronic kidney disease, stage 4 (severe) N18.4 [facility] [address] [id number] [place] [address] 45934- 0131 Feb, [facility] [address] 11751- 0073 Feb, Vitamin D deficiency, unspecified E55.9 [facility] [id number] [place] [address] 73827- 5290 Jan, [facility] [address] [place] [address]- 3313 Jan, [facility] [id number] [place] [address] 41702- 0359 Dec, [facility] [id number] [place] [address] 88060- 4691 Dec, Chronic kidney disease, stage 4 (severe) N18.4 [facility] [id number] [place] [address] 26926- 4508 Dec, Dysthymic disorder F34.1 and Generalized anxiety disorder F41.1 [facility] [id number] [place] [address] 52707- 3402 Dec, [facility] [id number] [place] [address] 36288- 9430 Dec, [facility] [id number] [place] [address] 07385- 5275 Dec, Dysthymic disorder F34.1 and Generalized anxiety disorder F41.1 [facility] [id number] [place] [address] 88590- 5120 Dec, Dysuria R30.0 ; Chronic kidney disease, stage 4 (severe) N18.4 ; Hypertension I10 ; Dyspepsia R10.13 ; Yeast dermatitis B37.2 ; Palpitations R00.2 ; Hypothyroid E03.9 ; Functional 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 and Other seasonal allergic rhinitis J30.2 [facility] [id number] [place] [address] 31386 -0081 Dec, [facility] [id number] [place] [phone] Nov, Dysuria R30.0 and Stress incontinence N39.3 [facility] [id number] [place] [phone] Nov, [facility] [id number] [place] [phone] Nov, [place] [id number] [place] [phone] Nov, Osteoarthritis of knees, bilateral M17.0 [place] [address] [address] Nov, Dysthymic disorder F34.1 and Generalized anxiety disorder F41.1 [place] [address] [phone] Nov, [place] [address] [address] Nov, [place] [address] [address] Nov, Urgency of urination R39.15 [place] [address] [address] Nov, [place] [address] [address]- [address] Nov, Chronic kidney disease, stage 4 (severe) N18.4 [place] [address] [address]- 1540 Oct, Hypertension I10 ; Coronary artery disease involving port gam[place] coronary artery of [place] heart, angina presence unspecified I25.10 ; Palpitations R00.2 ; Hypothyroid E03.9 ; Right foot pain M79.671 ; Functional 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 and Other seasonal allergic rhinitis J30.2 [place] [address] [place] [id number] [place] [address] 17083- 5980 Oct, Dysthymic disorder F34.1 and Generalized anxiety disorder F41.1 [place] [address] 95002- 4982 Sep, [place] [address] [place] [id number] [place] [address] 26634- 2934 Sep, [place] [address] 86013- 0549 Sep, [place] [id number] [place] [address] 06618- 6761 Sep, [place] [address] [id number] [place] [address] 40921- 6205 Sep, [place] [address] [id number] [place] [address] 38985- 5475 Sep, Dysthymic disorder F34.1 and Generalized anxiety disorder F41.1 [place] [address] [id number] [place] [address] 28358- 8522 16 Sep, 2015 Asthma with acute exacerbation in adult J45.901 ; Dysuria R30.0 ; Chronic kidney disease, stage 4 (severe) N18.4 and History of anemia Z86.2 [place] [id number] [place] [address] 42603- 8790 Sep, Generalized anxiety disorder F41.1 and Dysthymic disorder F34.1 [place] [address] [place] [id number] [place] [address] 58585- 1020 August, Screening breast examination Z12.39 and Acute recurrent maxillary sinusitis J01.01 [place] [id number] [place] [address] 60561- 5172 August, Osteoarthritis of knees, bilateral M17.0 [place] [id number] [place] [address] 82274- 4689 August, Chronic kidney disease, stage 4 (severe) N18.4 ; Acute non- recurrent maxillary sinusitis J01.00 ; Urinary problem R39.89 ; Bowel habit changes R19.4 ; Functional 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 and History of colon polyps Z86.010 [place] [address] [place] [id number] [place] [address] 74574- 6918 Jul, Dysthymic disorder F34.1 and Generalized anxiety disorder F41.1 [place] [id number] [place] [address] 64700- 2788 Jul, [facility] [address] [address] 5[address] Jul, Dysthymic disorder F34.1 ; Generalized anxiety disorder F41.1 and group home use of drug Z79.899 [facility] [address] [address] 4996 13 Jul, 2015 [facility] [id number] [place] [address] 25078- 5437 16 Jun, 2015 [facility] [address] [place] [id number] [place] [address] 76316- 3599 Jun, [place] [address] [place] [id number] [place] [address] 02062- 3034 May, [place] [address] [place] [id number] [place] [address] 81229- 0923 May, Dysthymic disorder F34.1 and Generalized anxiety disorder F41.1 [place] [id number] [place] [address] 17158- 7761 Apr, Kidney disease N28.9 [place] [address] [place] [id number] [place] [address] 65831- 8318 Apr, Generalized anxiety disorder F41.1 and Dysthymic disorder F34.1 [place] [address], [place] [address]- 9940 Apr, Chronic kidney disease, stage 4 (severe) N18.4 [facility] [address], [place] [address]- 5746 Apr, Generalized anxiety disorder F41.1 ; Major depression, recurrent F33.9 and Sleep disturbance G47.9 [place] [id number] [place] [address] 11340- 7518 Mar, Generalized anxiety disorder F41.1 and Dysthymic disorder F34.1 [place] [id number] [place] [address] 38514- 0624 Mar, Generalized anxiety disorder F41.1 ; Dysthymic disorder F34.1 and Insomnia G47.00 [facility] [address] [place] [id number] [place] [address] 74892- 0516 Mar, [facility] [address] [place] [id number] [place] [address] 29608- 0884 Mar, [facility] [address] 56273- 8076 Mar, Osteoarthritis of knees, bilateral M17.0 [facility] [address] [place] [id number] [place] [address] 56594- 2942 Mar, Hypertension I10 ; Hypothyroid E03.9 ; Dysthymic disorder F34.1 ; Chronic kidney disease, stage 4 (severe) N18.4 and Nausea & vomiting R11.2 [facility] [address] [place] [id number] [place] [address] 29114- 2448 Mar, Generalized anxiety disorder F41.1 ; Dysthymic disorder F34.1 and Insomnia G47.00 [facility] [address] [place] [id number] [place] [address] 58091- 1955 Mar, Dehydration E86.0 ; Chronic kidney disease, stage 4 (severe ) N18.4 and Nausea & vomiting R11.2 [facility] [address] [place] [id number] [place] [address] 14015 -1867 Mar, Gastroenteritis K52.9 [facility] [address] [place] [id number] [place] [address] 26423- 9607 Mar, [facility] [address] [place] [id number] [place] [address] 56677- 5746 Mar, [facility] [address] [place] [id number] [place] [address] 75959- 7661 Feb, Dysthymic disorder F34.1 and Generalized anxiety disorder F41.1 [facility] [address] [place] [id number] [place] [address] 76942- 3785 Jan, UTI (urinary tract infection) N39.0 ; Asthma J45.909 ; Coronary artery disease involving port [place] coronary artery of port [place] heart, angina presence unspecified I25.10 ; Hypertension I10 ; Hypothyroid E03.9 ; Vitamin D deficiency E55.9 ; Insomnia G47.00 ; Palpitations R00.2 ; Depressed F32.9 ; Restless leg G25.81 and Anxiety F41.[address] 97225- 0266 Jan, Dysthymic disorder F34.1 and Generalized anxiety disorder F41.[address] 65563- 9333 Jan, [address] 45735- 8800 Dec, [place] [address] 21175- 7280 Dec, Alkalosis 276.3 ; Chronic kidney disease, 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.4 ; Hyperpotassemia 276.7 ; Secondary hyperparathyroidism, renal 588.81 ; Proteinuria 791.0 ; Unspecified vitamin D deficiency 268.9 ; Anemia in chronic kidney disease 285.21 ; Other and unspecified hyperlipidemia 272.4 ; Hypertension, essential, benign 401.1 and Chronic kidney disease (CKD), stage III (moderate) 585.3 [place] [address] [place] [id number] [place] [address] 23541- 2122 Dec, [place] [address] [place] [id number] [place] [address] 38222- 3534 Dec, Depressive disorder, not elsewhere classified 311 and Generalized anxiety disorder 300.02 [place] [address] [place] [id number] [place] [address] 49068- 8233 Dec, [place] [address] [place] [id number] [place] [address] 17882- 6700 Dec, [place] [address] [place] [id number] [place] [address] 76404- 3600 Nov, Depressive disorder, not elsewhere classified 311 and Generalized anxiety disorder 300.02 [place] [address] [place] [id number] [place] [address] 98725- 8971 Nov, Arthritis of both knees 716.96 [place] [address] [place] [id number] [place] [address] 12727- 0538 Nov, PAF (paroxysmal atrial fibrillation) 427.31 ; CAD (coronary artery disease) 414.00 ; Chest pain 786.50 and Chronic kidney disease (CKD) stage G4/A1, severely decreased glomerular filtration rate (GFR) between 15-29 mL/min/1.73 square meter and albuminuria creatinine ratio less than 30 mg/g 585.[address] 34130- 0292 Oct, Coronary atherosclerosis of unspecified type of vessel, port gamble or graft 414.00 ; Chronic kidney disease, 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.4 ; Hypertension 401.9 and Edema 782.3 [place] [id number] [place] [address] 40352- 3847 Oct, Depressive disorder, not elsewhere classified 311 and Generalized anxiety disorder 300.02 [place] [address] [place] [id number] [place] [address] 03449- 7889 Oct, Depressive disorder, not elsewhere classified 311 and Generalized anxiety disorder 300.02 [place] [address] [place] [id number] [place] [address] 75187- 1984 Oct, [place] [address] [place] [id number] [place] [address] 12222- 7093 Oct, [place] [address] [place] [id number] [place] [address] 89526- 9080 Sep, [place] [id number] [place] [address] 70766- 4383 Sep, Chronic kidney disease, 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.4 [place] [address] [place] [id number] [place] [address] 18452- 7553 Sep, [id number] [place] [address] 47753- 7050 Sep, Coronary atherosclerosis of unspecified type of vessel, port gamble or graft 414.00 ; Hypertension 401.9 ; Edema 782.3 and Hypothyroidism 244.9 [facility] [address] [place] [id number] [place] [address] 96103- 7760 Sep, Coronary atherosclerosis of unspecified type of vessel, port gamble or graft 414.00 ; Hypertension 401.9 ; Fibromyalgia 729.1 ; Edema 782.3 ; Hypothyroidism 244.9 and Anemia 285.9 [facility] [address] [place] [id number] [place] [address] 89696- 7660 Sep, Anxiety disorder, unspecified 300.00 and Depressive disorder , not elsewhere classified 311 [facility] [address] [place] [id number] [place] [address] 91140- 5172 Sep, [facility] [address] 37598- 2570 August, Generalized anxiety disorder 300.02 [facility] [address] [place] [id number] [place] [address] 43457- 3517 August, Closed fracture of lateral malleolus 824.2 [facility] [address] [place] [id number] [place] [address] 79776- 5162 Jul, [facility] [address] [place] [id number] [place] [address] 75656- 2646 Jul, [facility] [address] [place] [id number] [place] [address] 86947- 7464 Jun, [facility] [address] [place] [id number] [place] [address] 83646- 2643 Jun, [facility] [address] [place] [id number] [place] [address] 45060- 9600 Jun, [facility] [id number] [place] [address] 41956- 8356 Jun, [facility] [address] [place] [id number] [place] [address] 37363- 1327 Jun, [facility] [place] [facility] [address] [id number] [place] [address]- 1137 Jun, [facility] [place] [facility] [address] [id number] [place] [address]- 1886 May, 2014 [facility] [place] [facility] [address] [facility] [id number] [place] [address]- 2706 May, 2014 [facility] [place] [facility] [address] [id number] [place] [address]- 9052 May, 2014 [facility] [place] [facility] [address] [id number] [place] [address]- 1291 May, 2014 [facility] [place] [facility] [address] [facility] [id number] [place] [address]- 5461 16 May, 2014 [facility] [place] [facility] [address] [facility] [id number] [place] [address]- 4630 16 May, 2014 [facility] [place] [facility] [address] [facility] [id number] [place] [address]- 2234 13 May, 2014 [facility] [place] [facility] [address] [place] [id number] [place] [address]- 9476 13 May, 2014 [facility] [place] [facility] [address] [facility] [id number] [place] [address]- 3782 10 May, 2014 [facility] [place] [facility] [address] [facility] [id number] [place] [address]- 1167 10 May, 2014 [facility] [place] [facility] [address] [facility] [id number] [place] [address]- 9661 Apr, [facility] [place] [facility] [address] [id number] [place] [address]- 2204 Apr, [facility] [place] [facility] [address] [facility] [id number] [place] [address]- 4127 Mar, [facility] [place] [facility] [address] [facility] [id number] [place] [address]- 9366 Mar, [facility] [place] [facility] [address] [id number] [place] [address]- 6970 Mar, [facility] [place] [facility] [address] [id number] [place] [address]- 6370 Mar, [facility] [place] [facility] [address] [id number] [place] [address]- 0024 Mar, [facility] [place] [facility] [address] [id number] [place] [address]- 0320 Mar, [facility] [place] [facility] [address] [id number] [place] [address]- 1815 Mar, [facility] [place] [facility] [address] [id number] [place] [address]- 1742 Feb, [facility] [place] [facility] [address] [id number] [place] [address]- 2710 Feb, [facility] [place] [facility] [address] [id number] [place] [address]- 0221 Feb, [facility] [place] [facility] [address] [id number] [place] [address]- 9191 Jan, [facility] [place] [facility] [address] [id number] [place] [address]- 1314 Jan, [facility] [place] [facility] [address] [id number] [place] [address]- 3048 Jan, [facility] [place] [facility] [address] [id number], [place] [address]- 6910 Jan, [facility] [place] [facility] [address] [id number] [place] [address]- 6833 Jan, [facility] [place] [facility] [address] [id number] [place] [address]- 2245 Jan, [facility] [place] [facility] [address] [id number] [place] [address]- 1700 Jan, [facility] [place] [facility] [address] [id number] [place] [address]- 1373 Jan, [facility] [place] [facility] [address] [id number] [place] [address]- 2888 Jan, [facility] [place] [facility] [address] [id number] [place] [address]- 1016 Jan, [facility] [place] [facility] [address] [id number] [place] [address]- 2728 Nov, [facility] [place] [facility] [address] [id number] [place] [address]- 0713 Nov, [facility] [place] [facility] [address] [id number] [place] [address]- 9249 Nov, [facility] [place] [facility] [address] [id number] [place] [address]- 6796 Oct, [facility] [place] [facility] [address] [id number] [place] [address]- 3879 Oct, [facility] [place] [facility] [address] [id number] [place] [address]- 9753 Oct, [facility] [place] [facility] [address] [id number] [place] [address]- 5268 Oct, [facility] [place] [facility] [address] [id number] [place] [address]- 0452 Oct, [facility] [place] [facility] [address] [id number] [place] [address]- 3476 Oct, [facility] [place] [facility] [address] [id number] [place] [address]- 7887 Oct, [facility] [place] [facility] [address] [id number] [place] [address]- 0269 Oct, [facility] [place] [facility] [address] [id number] [place] [address]- 6235 Oct, [facility] [place] [facility] [address] [id number] [place] [address]- 8879 Sep, [facility] [place] [facility] [address] [id number] [place] [address]- 1705 Sep, [facility] [place] [facility] [address] [id number] [place] [address]- 2969 Sep, [facility] [place] [facility] [address] [id number] [place] [address]- 4693 Sep, [facility] [place] [facility] [address] [id number] [place] [address]- 7165 Sep, [facility] [place] [facility] [address] [id number] [place] [address]- 0725 Sep, [facility] [place] [facility] [address] [id number] [place] [address]- 0467 Sep, [facility] [place] [facility] [address] [id number] [place] [address]- 2350 Sep, [facility] [place] [facility] [address] [id number] [place] [address]- 0721 Sep, [facility] [place] [facility] [address] [id number] [place] [address]- 0504 August, [facility] [place] [facility] [address] [id number] [place] [address]- 7501 August, [facility] [place] [facility] [address] [id number] [place] [address]- 1737 August, [facility] [place] [facility] [address] [id number] [place] [address]- 2172 August, [facility] [place] [facility] [address] [id number] [place] [address]- 9348 August, [facility] [place] [facility] [address] [id number] [place] [address]- 9243 August, [facility] [place] [facility] [address] [id number] [place] [address]- 6283 Jul, [facility] [place] [facility] [address] [id number] [place] [address]- 6398 Jul, [facility] [place] [facility] [address] [id number] [place] [address]- 1343 Jul, [facility] [place] [facility] [address] [id number] [place] [address]- 8709 Jul, [facility] [place] [facility] [address] [id number] [place] [address]- 6925 Jul, [facility] [place] [facility] [address] [id number] [place] [address]- 7260 Jul, [facility] [place] [facility] [address] [id number] [place] [address]- 9661 Jun, [facility] [place] [facility] [address] [id number] [place] [address]- 0405 Jun, [facility] [place] [facility] [address] [id number] [place] [address]- 2118 May, [facility] [place] [facility] [address] [id number] [place] [address]- 1529 May, [facility] [place] [facility] [address] [id number] [place] [address]- 5476 May, [facility] [place] [facility] [address] [id number] [place] [address]- 4163 May, [facility] [place] [facility] [address] [id number] [place] [address]- 1999 Apr, [facility] [place] [facility] [address] [id number] [place] [address]- 8106 Apr, [facility] [place] [facility] [address] [id number] [place] [address]- 8846 Mar, [facility] [place] [facility] [address] [id number] [place] [address]- 3455 Mar, [facility] [place] [facility] [address] [id number] [place] [address]- 3683 17 Mar, 2013 [facility] [place] [facility] [address] [id number] [place] [address]- 0824 17 Mar, 2013 [facility] [place] [facility] [address] [id number] [place] [address]- 8118 05 Mar, 2013 [facility] [place] [facility] [address] [id number] [place] [address]- 2346 Mar, [facility] [place] [facility] [address] [id number] [place] [address]- 6905 Feb, [facility] [place] [facility] [address] [id number] [place] [address]- 5183 Feb, [facility] [place] [facility] [address] [id number] [place] [address]- 8989 Feb, [facility] [place] [facility] [address] [id number] [place] [address]- 9114 Feb, [facility] [place] [facility] [address] [id number] [place] [address]- 5936 Feb, [facility] [place] [facility] [address] [id number] [place] [address]- 5420 Feb, [facility] [place] [facility] [address] [id number] [place] [address]- 8789 Jan, [facility] [place] [facility] [address] [id number] [place] [address]- 8506 24 Jan, 2013 [facility] [place] [facility] [address] [id number] [place] [address]- 2483 Jan, [facility] [place] [facility] [address] [id number] [place] [address]- 0269 Jan, [facility] [place] [facility] [address] [id number] [place] [address]- 6076 08 Jan, 2013 [facility] [place] [facility] [address] [id number] [place] [address]- 2546 Jan, [facility] [place] [facility] [address] [id number] [place] [address]- 3634 Dec, [facility] [address] [id number] [place] [address]- 1669 Dec, [facility] [place] [facility] [address] [id number] [place] [address]- 7252 Nov, [facility] [place] [facility] [address] [id number] [place] [address]- 3279 Nov, [facility] [place] [facility] [address] [id number] [place] [address]- 5656 Oct, [facility] [place] [facility] [address] [id number] [place] [address]- 8502 Oct, [facility] [place] [facility] [address] [id number] [place] [address]- 6615 Oct, [facility] [place] [facility] [address] [id number] [place] [address] Oct, [facility] [place] [facility] [address] [id number] [place] [address] Oct, [facility] [place] [facility] [address] [id number] [place] [address] Oct, [facility] [place] [facility] [address] [id number] [place] [address] Sep, [facility] [place] [facility] [address] [id number] [place] [address] Sep, [facility] [place] [facility] [address] [id number] [place] [address] Sep, [facility] [place] [facility] [address] [id number] [place] [address] Sep, [facility] [place] [facility] [address] [id number] [place] [address] August, [facility] [place] [facility] [address] [id number] [place] [address] August, [facility] [place] [facility] [address] [id number] [place] [address] August, [facility] [address] [id number] [place] [address] August, [facility] [address] [id number] [place] [address] August, [facility] [address] [id number] [place] [address] Jul, [facility] [address] [id number] [place] [address]687 Jul, [facility] [address] [id number] [place] [address] Jul, [facility] [address] [id number] [place] [address] Jul, [facility] [address] [id number] [place] [address] Jul, [facility] [address] [id number] [place] [address] Jul, [facility] [address] [id number] [place] [address] Jul, [facility] [address] [id number] [place] [address] Jul, [facility] [address] [id number] [place] [address] Jul, [facility] [address] [id number], [place] [address] Jul, [facility] [address] [id number] [id number] Jun, [facility] [address] [id number] [place] [address] Jun, [facility] [address] [id number] [place] [address] Jun, [facility] [place] [facility] [address] [id number] [place] [address] Jun, [facility] [address] [id number] [place] [address] Jun, [facility] [address] [id number] [place] [address] May, [facility] [address] [id number] [place] [address] 18 May, 2012 [facility] [address] [id number] [place] [address] May, [facility] [address] [id number] [place] [address] Apr, [facility] [address] [id number] [place] [address] Apr, [facility] [address] [id number] [place] [address] Apr, [facility] [address] [id number] [place] [address] Apr, [facility] [address] [id number] [place] [address] Apr, [facility] [address] [id number] [place] [address] Apr, [facility] [address] [id number] [place] [address] Mar, [facility] [address] [id number] [place] [address] Mar, [facility] [place] [facility] [address] [id number] [place] [address] Mar, [facility] [place] [facility] [address] [id number] [place] [address] Mar, [facility] [address] [id number] [place] [address] Feb, [facility] [place] [facility] [address] [id number] [place] [address] Feb, [facility] [place] [facility] [address] [id number] [place] [address] Feb, [facility] [place] [facility] [address] [facility] [id number] [place] [address] Feb, [facility] [place] [facility] [address] [id number] [place] [address] Feb, [facility] [place] [facility] [address] [id number] [place] [address] Feb, [facility] [place] [facility] [address] [id number] [place] [address] Feb, [facility] [place] [facility] [address] [facility] [id number] [place] [address] Feb, [facility] [place] [facility] [address] [id number], [place] [address] Feb, [facility] [place] [facility] [address] [id number] [place] [address] Feb, [facility] [place] [facility] [address] [facility] [id number], [place] [address] Feb, [facility] [place] [facility] [address] [id number], [place] [address] Feb, [facility] [place] [facility] [address] [id number], [place] [address] Feb, [facility] [place] [facility] [address] [id number], [place] [address] Feb, [facility] [place] [facility] [address] [id number], [place] [address] Feb, [facility] [place] [facility] [address] [facility] [id number], [place] [address] Feb, [facility] [place] [facility] [address] [id number] [place] [address] 31 Jan, 2011 [facility] [place] [facility] [address] [id number] [place] [address] 6969 31 Jan, 2011 [facility] [place] [facility] [address] [id number] [place] [address] 5080 31 Jan, 2011 [facility] [place] [facility] [address] [id number] [place] [address] 6136 31 Jan, 2011 [facility] [place] [facility] [address] [id number] [place] [address] 9937 30 Jan, 2011 [facility] [place] [facility] [address] [id number] [place] [address] 7368 Jan, 2011 [facility] [place] [facility] [address] [id number] [place] [address] 4108 25 Jan, 2011 [facility] [place] [facility] [address] [facility] [id number] [place] [address]- 2820 16 Jan, 2012 [facility] [place] [facility] [address] [id number] [place] [address] 7617 16 Jan, 2012 [facility] [place] [facility] [address] [id number] [place] [address]- 1828 15 Jan, 2012 [facility] [place] [facility] [address] [facility] [id number] [place] [address] 2757 15 Jan, 2012 [facility] [place] [facility] [address] [id number] [place] [address] 6983 Jan, [facility] [place] [facility] [address] [id number], [place] [address] 9[address] 26 Dec, 2011 [facility] [place] [facility] [address] [id number] [place] [address] 7850 26 Sep, 2011 [facility] [place] [facility] [address] [facility] [id number] [place] [address] 2307 24 Sep, 2011 [facility] [place] [facility] [address] [id number] [place] [address]- 0546 23 Sep, 2011 [facility] [place] [facility] [address] [id number] [place] [address]- 1747 22 Dec, 2011 [facility] [place] [facility] [address] [id number] [place] [address]- 0211 21 Dec, 2011 [facility] [place] [facility] [address] [id number] [place] [address]- 3668 20 Dec, 2011 [facility] [place] [facility] [address] [id number] [place] [address]- 1601 20 Dec, 2011 [facility] [place] [facility] [address] [id number] [place] [address] 495[address] 07 Sep, 2011 [facility] [place] [facility] [address] [id number] [place] [address]- 5284 06 Dec, 2011 [facility] [place] [facility] [address] [id number] [place] [address]- 1626 06 Dec, 2011 [facility] [place] [facility] [address] [id number] [place] [address] 4812 05 Dec, 2011 [facility] [place] [facility] [address] [id number] [place] [address] 3515 23 Nov, 2011 [facility] [place] [facility] [address] [id number] [place] [address] 9565 17 Nov, 2011 [facility] [place] [facility] [address] [id number] [place] [address] 1334 13 Nov, 2011 [facility] [place] [facility] [address] [id number] [place] [address] 8574 Nov, [facility] [place] [facility] [address] [id number] [place] [address]- 4848 08 Nov, 2011 [facility] [place] [facility] [address] [id number] [place] [address] 3452 Nov, [facility] [place] [facility] [address] [id number] [place] [address]- 7247 Nov, [facility] [place] [facility] [address] [id number] [place] [address] 2546 Nov, [facility] [place] [facility] [address] [id number] [place] [address] 6641 Oct, [facility] [place] [facility] [address] [id number] [place] [address] 4016 Oct, [facility] [place] [facility] [address] [id number] [place] [address]- 0046 Oct, [facility] [place] [facility] [address] [id number] [place] [address]- 9204 Oct, [facility] [place] [facility] [address] [id number] [place] [address]- 3967 Oct, [facility] [place] [facility] [address] [id number] [place] [address] 8653 Oct, [facility] [place] [facility] [address] [id number] [place] [address] 9558 Oct, [facility] [place] [facility] [address] [id number] [place] [address] 3366 Sep, [facility] [place] [facility] [address] [id number] [place] [address]- 0685 Sep, [facility] [place] [facility] [address] [id number] [place] [address]- 0496 August, [facility] [place] [facility] [address] [id number] [place] [address] 4510 August, [facility] [place] [facility] [address] [id number] [place] [address] 9826 August, [facility] [place] [facility] [address] [id number] [place] [address] 1276 August, [facility] [place] [facility] [address] [id number] [place] [address] 2197 Jul, [facility] [place] [facility] [address] [id number] [place] [address]- 9196 Jul, [facility] [place] [facility] [address] [id number] [place] [address] 2816 06 Jul, 2011 [facility] [address] [id number] [place] [address]- 5180 Jul, [facility] [address] [id number] [place] [address]- 9516 Jul, [facility] [address] [id number] [place] [address]- 9516 Jul, [facility] [address] [id number] [place] [address] 3816 Jul, [facility] [address] [id number] [place] [address]- 8073 Jul, [facility] [address] [id number] [place] [address]- 2949 Jul, [facility] [address] [id number] [place] [address]- 5640 Jun, [facility] [address] [id number] [place] [address]- 0378 Jun, [facility] [address] [id number] [place] [address]- 5554 15 Jun, 2011 [facility] [address] [id number] [place] [address]- 2209 14 Jun, 2011 [facility] [address] [id number] [place] [address]- 1262 Jun, [facility] [address] [id number] [place] [address]- 1495 Jun, [facility] [place] [facility] [address] [id number] [place] [address]- 0988 Jun, [facility] [address] [id number] [place] [address]- 8616 May, [facility] [address] [id number] [place] [address]- 3292 May, [facility] [address] [id number] [place] [address]- 5811 May, [facility] [place] [facility] [address] [id number] [place] [address]- 4146 May, [facility] [place] [facility] [address] [id number] [place] [address]- 0016 May, [facility] [place] [facility] [address] [id number] [place] [address]- 8536 Apr, [facility] [place] [facility] [address] [id number] [place] [address]- 5899 Apr, [facility] [place] [facility] [address] [id number] [place] [address]- 6626 Apr, [facility] [place] [facility] [address] [id number] [place] [address]- 9447 Apr, [facility] [place] [facility] [address] [id number] [place] [address]- 6040 Apr, [facility] [place] [facility] [address] [id number] [place] [address]- 7254 Mar, [facility] [place] [facility] [address] [id number] [place] [address]- 9791 Mar, [facility] [place] [facility] [address] [id number] [place] [address]- 1204 Mar, [facility] [place] [facility] [address] [id number] [place] [address]- 1756 Mar, [facility] [place] [facility] [address] [id number] [place] [address]- 6016 Mar, [facility] [place] [facility] [address] [id number] [place] [address]- 5916 Mar, [facility] [place] [facility] [address] [id number] [place] [address]- 1606 Mar, [facility] [place] [facility] [address] [id number] [place] [address]- 5063 11 Feb, 2011 [facility] [place] [facility] [address] [id number] [place] [address] Feb, [facility] [place] [facility] [address] [id number] [place] [address]- 3296 Feb, [facility] [place] [facility] [address] [id number] [place] [address]- 9816 Feb, [facility] [place] [facility] [address] [id number] [place] [address]- 8213 Jan, [facility] [place] [facility] [address] [id number] [place] [address]- 8313 Jan, [facility] [place] [facility] [address] [id number] [place] [address]- 4082 Jan, [facility] [place] [facility] [address] [id number] [place] [address]- 4179 Jan, [facility] [place] [facility] [address] [id number] [place] [address]- 9684 Nov, [facility] [place] [facility] [address] [id number] [place] [address]- 3038 Mar, [facility] [place] [facility] [address] [id number] [place] [address]- 3613 Mar, [facility] [place] [facility] [address] [id number] [place] [address] 2546 Mar, [facility] [place] [facility] [address] [id number] [place] [address]- 2545 Mar, [facility] [place] [facility] [address] [id number] [place] [address]- 4636 Mar, [facility] [place] [facility] [address] [id number] [place] [address]- 2968 Mar, [facility] [place] [facility] [address] [id number] [place] [address]- 7706 Feb, [facility] [address] [facility] [id number], [place] [address] 4[address] Feb, [facility] [address] [facility] [id number], [place] [address]- 8108 Jan, [facility] [address] [facility] [id number], [place] [address]- 1700 Jan, [facility] [address] [facility] [id number], [place] [address]- 6216 Jan, IMMUNIZATIONS No Known Immunizations SOCIAL HISTORY Never Assessed REASON FOR VISIT Rash to right hand. MALAHCI Guevara PLAN OF CARE Activity Details Follow Up prn Reason: VITAL SIGNS Height 63 in 2017-12-04 Weight 192.1 lbs 2017-12-04 Temperature 98.0 degrees Fahrenheit 2017-12-04 Heart Rate 68 bpm 2017-12-04 Respiratory Rate 20 2017-12-04 BMI 34.03 kg/m2 2017-12-04 Blood pressure systolic 122 mmHg 2017-12-04 Blood pressure diastolic 64 mmHg 2017-12-04 MEDICATIONS Medication Instructions Dosage Frequency Start Date End Date Duration Status Topamax 100 MG Orally Twice a day 1 tablet 12h Active Ipratropium [place] 0.03 % Nasally Three times a day prn drainage 1-2 sprays in each nostril as needed Active Vitamin D (Ergocalciferol) 56900 UNIT TAKE ONE CAPSULE BY MOUTH TWICE WEEKLY 56 Active Gemfibrozil 600 MG TAKE ONE TABLET BY MOUTH TWICE DAILY 30 Active Toprol XL 50 mg po Once a day 1 tablet 24h 90 day Active ProAir HFA 108 (90 Base) MCG/ACT 1 puff Active Nystatin 546265 UNIT/GM Externally Twice a day 1 application to thighs as needed 12h Sep, 5 Active Vitamin C 1000 MG Orally Once a day 1 tablet 24h Active Pantoprazole Sodium 40 MG TAKE ONE TABLET BY MOUTH ONCE DAILY 30 Active Clotrimazole-Betamethasone 1-0.05 % Externally Twice a day 1 application to affected area 12h Nov, 4 Dec, 2017 14 days Active Lyrica 150 MG Orally 2 times a day 1 capsule 12h 28 days Active Symbicort 80-4.5 MCG/ACT INHALE TWO PUFFS BY MOUTH TWICE DAILY. 25 Active Vitamin D-3 1000 UNIT Orally Once a day 1 tablet 24h Active Cymbalta 60 MG TAKE ONE CAPSULE BY MOUTH ONCE DAILY Active Fiber Complete - Active Cetirizine HCl 10 MG Orally Once a day 1 tablet 24h Active Synthroid 150 MCG TAKE 1 TABLET BY MOUTH ONCE DAILY 30 Active Ferrous Sulfate 325 (65 Fe) MG Orally 3 times a day 1 tablet 8h Active Requip 5 MG Orally Once a day 1 tablet 24h Active Aspirin 325 MG Orally Once a day 1 tablet 24h Active Fluticasone Propionate 50 MCG/ACT USE ONE SPRAY IN EACH NOSTRIL TWICE DAILY Active Fish Oil 1200 MG Orally Once a day at hs 1 capsule Active Nystatin 258972 UNIT/ML Mouth/Throat Four times a day 4 ml 6h Active RESULTS No Results PROCEDURES Procedure Date Ordered Result Body Site [facility] VISIT ESTABLISHED PATIENT Dec 04, 2017 INSTRUCTIONS MEDICATIONS ADMINISTERED No Known Medications [...] 2020 & 2007 Surgical History Bladder surgery [facility] 03/2016 Surgical History Neurotransmitter placed 10/2017 Hospitalization History Surgeries Only Hospitalization History bacterial meningitis December 2016 Hospitalization History [facility] psych for SI 1988 Hospitalization History [facility]-Altered mental status 05/2017
--- OUTSIDE RECORDS SUMMARY | 2018-05-29 07:48 | XMS REPORT ---
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 Name Role Phone KEIRA FORD Unavailable PROBLEMS Type Condition ICD9-CM Code [id number] Code Onset Dates Condition Status SNOMED Code Problem Low back pain M54.5 Active 348964278 Problem Abnormal chest CT R93.8 Active 794559026 Problem Dysthymic disorder F34.1 Active 84632530 Problem Generalized anxiety disorder F41.1 Active 86510748 Problem Coronary artery disease involving [place] coronary artery of [place] heart, angina presence unspecified I25.10 Active 9677614110151 Problem Restless leg G25.81 Active 48511512 Problem Hypothyroid E03.9 Active 89417383 Problem Insomnia G47.00 Active 539043303 Problem Asthma J45.909 Active 922997803 Problem Chronic kidney disease, unspecified N18.9 Active 950842135 Problem Palpitations R00.2 Active 51935576 Problem Anemia in chronic kidney disease D63.1 Active 750535901716819 Problem Depressed F32.9 Active 41695433 Problem Bipolar disorder, current episode manic without psychotic features F31.10 Active 589481957 Problem Primary osteoarthritis of left knee M17.12 Active 631139558 Problem Degenerative tear of medial meniscus of left knee M23.204 Active 830645946 Problem Chronic pain syndrome G89.4 Active 366053110 Problem Restless leg syndrome G25.81 Active 30791969 Problem History of colon polyps Z86.010 Active 865428176 Problem Functional 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 Active 06945004 Problem Chronic kidney disease, stage 4 (severe) N18.4 Active 276045464 Problem Stage 3 chronic kidney disease N18.3 Active 523090437 Problem Mood disorder F39 Active 16260573 Problem Seasonal allergic rhinitis due to pollen J30.1 Active 71699635 Problem Body mass index (BMI) of 40.0-44.9 in adult Z68.41 Active 285383125 Problem Other seasonal allergic rhinitis J30.2 Active 390499020 Problem Long-term use of high-risk medication Z79.899 Active 608825693 Problem Hypokalemia E87.6 Active 01365293 Problem Asthma with acute exacerbation in adult J45.901 Active 841614882 Problem History of anemia Z86.2 Active 987774076 Problem Vitamin D deficiency E55.9 Active 53182274 Problem Essential (primary) hypertension I10 Active 83441550 Problem Fibromyalgia M79.7 Active 208457021 Problem Mixed stress and urge urinary incontinence N39.46 Active 820407772 ALLERGIES No Information ENCOUNTERS Encounter Location Date Diagnosis [place] [address] [address] Jan, [facility] [address] [address] Jan, [place] [address] [address] Dec, [facility] [address] [address]- 5[address] Dec, Fibromyalgia M79.7 [facility] [address] 0[address]- 7412 Nov, [facility] [address] [address]- 2150 Nov, [facility] [address] [address]- 5315 Nov, [facility] [address] [address]- 2754 Nov, Fibromyalgia M79.7 ; Vision changes H53.9 ; Chest wall pain R07.89 and Chronic pain syndrome G89.4 [facility] [address] 29[address]- 6232 Nov, [facility] [address] 22534- 5617 Nov, Rash of hands R21 [facility] [address] [address] Nov, Generalized anxiety disorder F41.1 and Major depressive disorder, recurrent episode with anxious distress F33.9 [facility] [address] [address] 5[address] Nov, Fibromyalgia M79.7 [facility] [address] [place] [id number] [place] [address] 42730- 5002 Nov, Complicated UTI (urinary tract infection) N39.0 [facility] [address] [place] [id number] [place] [address] 91880- 8337 Oct, [place] [address] [place] [id number] [place] [address] 88608- 1638 Oct, Generalized anxiety disorder F41.1 and Major depressive disorder, recurrent episode with anxious distress F33.9 [place] [address] [place] [id number] [place] [address] 36882- 9779 Oct, [place] [address] [place] [id number] [place] [address] 55692- 8417 Oct, Fibromyalgia M79.7 [facility] [address] [place] [id number] [place] [address] 93992- 0024 Sep, Restless leg syndrome G25.81 and Restless leg G25.81 [place] [id number] [place] [address] 83650- 3187 Sep, [place] [address] [place] [id number] [place] [address] 17598- 3392 Sep, Seasonal allergic rhinitis due to pollen J30.1 ; Screening for breast cancer Z12.31 ; Chest pain at rest R07.9 ; Restless leg syndrome G25.81 ; Essential (primary) hypertension I10 and Depressed F32.9 [facility] [address] [address] 3147 August, Fibromyalgia M79.7 [place] [address] [place] [id number] [place] [address] 34615- 9124 August, [facility] [address] [place] [id number] [place] [address] 90441- 0088 August, [place] [address] [place] [id number] [place] [address] 78276- 1696 August, Abnormal chest CT R93.8 [place] [address] 67596- 7[address] August, Generalized anxiety disorder F41.1 and Major depressive disorder, recurrent episode with anxious distress F33.9 [place] [address] 86140- [address] August, Ab[address] R93.8 [place] [address] [place] [id number] [place] [address] 83941- 9242 Jul, [place] [address] 26461- 0462 Jul, Chronic kidney disease, stage 4 (severe) N18.4 [place] [address] [place] [id number] [place] [address] 07268- 8443 Jul, [place] [address] [place] [id number] [place] [address] 43351- 7611 Jul, Restless leg G25.81 ; Mixed stress and urge urinary incontinence N39.46 and Fibromyalgia M79.7 [place] [address] [place] [id number] [place] [address] 84891- 9372 Jul, Chronic kidney disease, stage 4 (severe) N18.4 [place] [address] [place] [id number] [place] [address] 78523- 3016 Jun, Orthostatic hypotension I95.1 ; Chronic kidney disease, stage 4 (severe) N18.4 ; Chest wall discomfort R07.89 and Body mass index (BMI) of 40.0-44.9 in adult Z68.41 [place] [address] 55178- 5119 Jun, [facility] [address] [address]- 8782 Jun, Orthostatic hypotension I95.1 [facility] [address] [place] [id number] [place] [address] 23211- 1094 Jun, [facility] [id number] [place] [address] 22581 -2272 Jun, Orthostatic hypotension I95.1 ; Dysuria R30.0 and Acute cystitis without hematuria N30.00 [facility] [address] [place] [id number] [place] [address] 47367- 6937 Jun, [facility] [address] [place] [id number] [place] [address] 09627- 5033 Jun, Chronic kidney disease, stage 4 (severe) N18.4 [facility] [address] [place] [id number] [place] [address] 71169- 9348 Jun, Fibromyalgia M79.7 [facility] [address] [place] [id number] [place] [address] 02855- 0185 Jun, [facility] [address] [place] [id number] [place] [address] 38084- 0833 Jun, [facility] [address] [place] [id number] [place] [address] 75904- [address] May, [address] R93.8 and Stage 3 chronic kidney disease N18.3 [facility] [id number] [place] [address] 63926- 3354 May, Chronic kidney disease, stage 4 (severe) N18.4 [facility] [address] [place] [id number] [place] [address] 62490- 1475 May, Chronic kidney disease, stage 4 (severe) N18.4 [facility] [address] [address]- [address] May, [address] R93.8 [facility] [address] [address]- 7819 May, [facility] [id number] [place] [address] 20512- 1438 May, [facility] [address] [address]- 3087 May, Generalized anxiety disorder F41.1 and Major depressive disorder, recurrent episode with anxious distress F33.9 [facility] [address] [address]- 6584 May, Mood disorder F39 [facility] [id number] [place] [address] 76208- 9678 Apr, [place] [id number] [place] [address] 80140- 5516 Apr, Infected skin lesion L08.9 and Muscle strain of right shoulder region, initial encounter S46.911A [facility] [id number] [place] [address] 34355- 5744 Apr, Generalized anxiety disorder F41.1 and Major depressive disorder, recurrent episode with anxious distress F33.9 [facility] [address] [address]- 0207 Apr, [facility] [id number] [place] [address] 50953- 5725 Apr, Recent urinary tract infection Z87.440 and Hypothyroid E03.9 [facility] [address] [address]- 3052 Apr, Generalized anxiety disorder F41.1 and Major depressive disorder, recurrent episode with anxious distress F33.9 [facility] [address] [address]- 6826 Apr, Recent urinary tract infection Z87.440 [facility] [address] [address]- 0871 Mar, [facility] [id number] [place] [address] 54159 -5855 Mar, Dysuria R30.0 ; Acute cystitis without hematuria N30.00 and BMI 40.0-44.9, adult Z68.41 [facility] [id number] [place] [address] 61829- 8791 Mar, [facility] [address] 70925- 5463 Mar, [place] [address] [place] [id number] [place] [address] 83709- 0437 Mar, Generalized anxiety disorder F41.1 and Major depressive disorder, recurrent episode with anxious distress F33.9 [place] [address] [place] [id number] [place] [address] 65668- 0090 Feb, Conjunctivitis, bacterial H10.9 [place] [address] [place] [id number] [place] [address] 39006- 9411 Feb, [facility] [address] [place] [id number] [place] [address] 47911 -1781 Feb, Conjunctivitis, bacterial H10.9 [place] [address] [place] [id number] [place] [address] 02012- 6000 Feb, [facility] [address] [place] [id number] [place] [address] 10736 -6020 Feb, Dysuria R30.0 ; Acute cystitis N30.00 and BMI 40.0-44.9, adult Z68.41 [place] [address] [place] [id number] [place] [address] 97852- 5839 Feb, [place] [address] [place] [id number] [place] [address] 55034- 9085 Feb, Generalized anxiety disorder F41.1 and Major depressive disorder, recurrent episode with anxious distress F33.9 [place] [address] [place] [id number] [place] [address] 20847- 8362 Feb, Mood disorder F39 and BMI 40.0-44.9, adult Z68.41 [facility] [address] [place] [id number] [place] [address] 85571- 9204 Jan, [facility] [address] [place] [id number] [place] [address] 05647- 2559 Jan, [place] [address] 63885- 4540 Jan, Hypothyroid E03.9 [place] [address] [place] [id number] [place] [address] 60243- 1702 Jan, [place] [address] 49835- 9785 Jan, Chronic kidney disease, unspecified N18.9 ; Hypokalemia E87.6 ; Essential (primary) hypertension I10 ; Fibromyalgia M79.7 ; Coronary artery disease involving [place] coronary artery of [place] heart, angina presence unspecified I25.10 ; Hypothyroid E03.9 and Encounter for immunization Z23 [place] [address] [place] [id number] [place] [address] 07375- 2219 Jan, Hypothyroid E03.9 [place] [address] [place] [id number] [place] [address] 39736- 5326 Jan, [place] [address] [place] [id number] [place] [address] 19539- 1612 Dec, Vitamin D deficiency E55.9 [facility] [address] [place] [id number] [place] [address] 98248- 8943 Dec, Primary osteoarthritis of left knee M17.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 [place] [address] [place] [id number] [place] [address] 17439- 2482 Dec, Fibromyalgia M79.7 [facility] [address] [place] [id number] [place] [address] 35917- 3221 Dec, Mood disorder F39 [facility] [address] [address]- 4745 13 Dec, 2016 [facility] [address] [facility] [id number] [place] [address] 31194- 3742 13 Dec, 2016 Generalized anxiety disorder F41.1 and Major depressive disorder, recurrent episode with anxious distress F33.9 [facility] [address] [address]- 5128 11 Dec, 2016 [facility] [id number] [place] [address] 16610- 5273 08 Dec, 2016 Streptococcal meningitis G00.2 [facility] [id number] [place] [address] 39364- 4678 07 Dec, 2016 Streptococcal meningitis G00.2 [facility] [address] [address]- 9811 07 Dec, 2016 [facility] [id number] [place] [address] 30623- 0315 06 Dec, 2016 [facility] [address] [address]- 1492 06 Dec, 2016 Streptococcal meningitis G00.2 [facility] [address] [address]- 8736 06 Dec, 2016 Major depressive disorder, recurrent episode with anxious distress F33.9 [facility] [address] [address]- 6377 Nov, Fever, unspecified fever cause R50.9 [facility] [address] [address]- 5246 Nov, [facility] [id number] [place] [address] 71179- 7863 16 Nov, 2016 Hypothyroid E03.9 [facility] [address] [place] [id number] [address]- 9953 10 Nov, 2016 Generalized anxiety disorder F41.1 and Major depressive disorder, recurrent episode with anxious distress F33.9 [facility] [address] [address]- 3408 Nov, [facility] [id number] [place] [address] [id number] Oct, Dental examination Z01.20 [facility] [id number] [place] [address] 47336- 8079 Oct, Generalized anxiety disorder F41.1 and Major depressive disorder, recurrent episode with anxious distress F33.9 [facility] [address] [place] [id number] [place] [address] 44933- 7270 Oct, Chronic kidney disease, stage 4 (severe) N18.4 [facility] [address] [place] [id number] [place] [address] 94409- 6779 Oct, [facility] [address] [place] [id number] [place] [address] 21109- 7117 Oct, Fibromyalgia M79.7 [facility] [address] [place] [id number] [place] [address] 23634- 0564 Oct, [facility] [id number] [place] [address] 02422- 1738 Oct, Generalized anxiety disorder F41.1 ; Major depressive disorder, recurrent episode with anxious distress F33.9 and Bipolar disorder, current episode manic without psychotic features F31.10 [facility] [address] [address]- 6376 Sep, [facility] [address] [address]- 2545 Sep, [facility] [address] [place] [id number] [place] [address] 31321- 5072 15 Sep, 2016 Vitamin D deficiency E55.9 [facility] [id number] [place] [address] 74463- 2543 14 Sep, 2016 Vitamin D deficiency E55.9 [facility] [address] [place] [id number] [place] [address] 27229- 5616 Sep, [place] [id number] [place] [address] 39300- 9923 Sep, Chronic kidney disease, stage 4 (severe) N18.4 ; Hypothyroid E03.9 ; Restless leg G25.81 ; Fibromyalgia M79.7 ; Essential ( primary) hypertension I10 ; Vitamin D deficiency E55.9 ; Dyspepsia R10.13 ; Anemia in chronic kidney disease D63.1 ; Chronic kidney disease, unspecified N18.9 ; Coronary artery disease involving [place] coronary artery of [place] heart , angina presence unspecified I25.10 ; Screening breast examination Z12.39 and Low back pain M54.5 [place] [address] [place] [id number] [place] [address] 62627- 7491 August, Generalized anxiety disorder F41.1 and Major depressive disorder, recurrent episode with anxious distress F33.9 [place] [address] [place] [id number] [place] [address] 21774- 6919 August, Generalized anxiety disorder F41.1 and Major depressive disorder, recurrent episode with anxious distress F33.9 [place] [address] [place] [id number] [place] [address] 68565- 7347 August, Fibromyalgia M79.7 [place] [address] [place] [id number] [place] [address] 05266- 8919 Jul, Generalized anxiety disorder F41.1 and Major depressive disorder, recurrent episode with anxious distress F33.9 [place] [address] [place] [id number] [place] [address] 91733- 5010 Jul, Fibromyalgia M79.7 [place] [address] [place] [id number] [place] [address] 86709- 9751 Jul, Generalized anxiety disorder F41.1 [place] [address] [place] [id number] [place] [address] 84620- 5568 May, [place] [address] [place] [id number] [place] [address] 96932- 5688 May, Hypothyroid E03.9 [place] [address] [address]- 3568 08 May, 2016 Chronic kidney disease, stage 4 (severe) N18.4 ; Hypothyroid E03.9 ; Restless leg G25.81 ; Fibromyalgia M79.7 ; Essential ( primary) hypertension I10 ; Vitamin D deficiency E55.9 ; Dyspepsia R10.13 ; Acute non-recurrent maxillary sinusitis J01.00 ; Anemia in chronic kidney disease D63.1 ; Chronic kidney disease, unspecified N18.9 and Coronary artery disease involving [place] coronary artery of [place] heart, angina presence unspecified I25.10 [place] [address] [place] [id number] [place] [address] 84902- 8706 May, Vitamin D deficiency, unspecified E55.9 [place] [address] [place] [id number] [place] [address] 76600- 9558 May, Generalized anxiety disorder F41.1 and Major depressive disorder, recurrent episode with anxious distress F33.9 [place] [address] [place] [id number] [place] [address] 13826- 1743 Apr, Pain in right knee M25.561 and Pain in left knee M25.562 [place] [address] [place] [id number] [place] [address] 51635- 6971 Apr, [place] [address] [place] [id number] [place] [address] 78244- 3534 Apr, [place] [address] [place] [id number] [place] [address] 12832- 7073 Apr, [place] [address] [place] [id number] [place] [address] 44018- 1145 Mar, Generalized anxiety disorder F41.1 and Major depressive disorder, recurrent episode with anxious distress F33.9 [place] [address] [place] [id number] [place] [address] 11727- 0556 Mar, Generalized anxiety disorder F41.1 and Major depressive disorder, recurrent episode with anxious distress F33.9 [place] [address] [place] [id number] [place] [address] 45386- 6133 Mar, [facility] [address] [place] [id number] [place] [address] 28969- 2686 Mar, [facility] [address] [place] [id number] [place] [address] 72486- 0414 Mar, [facility] [address] [place] [id number] [place] [address] 05687- 6324 Mar, Asthma J45.909 and Fibromyalgia M79.7 [place] [address] [place] [id number] [place] [address] 21255- 3642 Mar, Chronic kidney disease, stage 4 (severe) N18.4 ; Vitamin D deficiency E55.9 and Essential (primary) hypertension I10 [place] [address] [place] [id number] [place] [address] 19951- 8924 Feb, [place] [address] [place] [id number] [place] [address] 35849- 7433 Feb, Dysuria R30.0 ; Mixed stress and urge urinary incontinence N39.46 ; Fibromyalgia M79.7 and Chronic kidney disease, stage IV (severe) N18.4 [place] [address] [place] [id number] [place] [address] 61276- 1846 Feb, Chronic kidney disease, stage 4 (severe) N18.4 [place] [address] [place] [id number] [place] [address] 32050- 1295 Feb, Chronic kidney disease, stage 4 (severe) N18.4 [place] [address] [place] [id number] [place] [address] 46983- 6134 Feb, [place] [address] [place] [id number] [place] [address] 24995- 4624 Feb, Vitamin D deficiency, unspecified E55.9 [place] [address] [place] [id number] [place] [address] 71717- 6399 Jan, [place] [id number] [place] [address] 48738- 8885 Jan, [facility] [address] [id number] [place] [address] 85876- 2837 Dec, [facility] [address] [place] [id number] [place] [address] 98375- 8851 Dec, Chronic kidney disease, stage 4 (severe) N18.4 [facility] [address] [id number] [place] [address] 12276- 7253 Dec, Dysthymic disorder F34.1 and Generalized anxiety disorder F41.1 [place] [address] [place] [id number] [place] [address] 62780- 8166 Dec, [facility] [address] [place] [id number] [place] [address] 84506- 5381 Dec, [place] [address] [place] [id number] [place] [address] 46439- 2509 Dec, Dysthymic disorder F34.1 and Generalized anxiety disorder F41.1 [facility] [id number] [place] [address] 99871- 7823 Dec, Dysuria R30.0 ; Chronic kidney disease, stage 4 (severe) N18.4 ; Hypertension I10 ; Dyspepsia R10.13 ; Yeast dermatitis B37.2 ; Palpitations R00.2 ; Hypothyroid E03.9 ; Functional 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 and Other seasonal allergic rhinitis J30.2 [facility] [id number] [place] [address] 81705 -1507 Dec, [facility] [id number] [place] [address] 78029 -3003 Nov, Dysuria R30.0 and Stress incontinence N39.3 [facility] [id number] [place] [address] 89172- 2445 Nov, [facility] [id number] [place] [address] 12602- 2446 Nov, [place] [id number] [place] [address] 34169- 3921 Nov, Osteoarthritis of knees, bilateral M17.0 [place] [id number] [place] [address] 66277- 2052 Nov, Dysthymic disorder F34.1 and Generalized anxiety disorder F41.1 [place] [address] 95647- 5147 Nov, [place] [address] 14981- 0538 Nov, [place] [address] 86353- 9286 Nov, Urgency of urination R39.15 [place] [address] 99136- 6653 Nov, [place] [address] 92004- 2568 Nov, Chronic kidney disease, stage 4 (severe) N18.4 [place] [address] 02065- 0494 Oct, Hypertension I10 ; Coronary artery disease involving [place] coronary artery of [place] heart, angina presence unspecified I25.10 ; Palpitations R00.2 ; Hypothyroid E03.9 ; Right foot pain M79.671 ; Functional 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 and Other seasonal allergic rhinitis J30.2 [place] [id number] [place] [address] 09461- 3647 Oct, Dysthymic disorder F34.1 and Generalized anxiety disorder F41.1 [place] [address] 71136- 4141 Sep, [place] [address] 67883- 2708 Sep, [place] [address] 64591- 0626 Sep, [place] [id number] [place] [address] 57003- 7530 Sep, [place] [id number] [place] [address] 28747- 8808 Sep, [place] [id number] [place] [address] 34970- 9631 Sep, Dysthymic disorder F34.1 and Generalized anxiety disorder F41.1 [place] [id number] [place] [address] 45316- 8580 16 Sep, 2015 Asthma with acute exacerbation in adult J45.901 ; Dysuria R30.0 ; Chronic kidney disease, stage 4 (severe) N18.4 and History of anemia Z86.2 [address] [id number] [place] [address] 14654- 6785 2015 Generalized anxiety disorder F41.1 and Dysthymic disorder F34.1 [place] [id number] [place] [address] 18555- 6852 August, Screening breast examination Z12.39 and Acute recurrent maxillary sinusitis J01.01 [id number] [place] [address] 29919- 3278 August, Osteoarthritis of knees, bilateral M17.0 [id number] [place] [address] 24919- 1369 August, Chronic kidney disease, stage 4 (severe) N18.4 ; Acute non- recurrent maxillary sinusitis J01.00 ; Urinary problem R39.89 ; Bowel habit changes R19.4 ; Functional 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 and History of colon polyps Z86.010 [place] [id number] [place] [address] 15712- 0700 Jul, Dysthymic disorder F34.1 and Generalized anxiety disorder F41.1 [place] [id number] [place] [address] 47664- 0170 Jul, [facility] [address] [address]- 7648 Jul, Dysthymic disorder F34.1 ; Generalized anxiety disorder F41.1 and nursing home use of drug Z79.899 [facility] [address] [address] Jul, [facility] [id number] [place] [address] 44464- 1013 Jun, [facility] [id number] [place] [address] 33136- 3203 Jun, [place] [id number] [place] [address] 72522- 5948 May, [place] [id number] [place] [address] 13972- 9038 May, Dysthymic disorder F34.1 and Generalized anxiety disorder F41.1 [place] [id number] [place] [address] 28478- 7873 Apr, Kidney disease N28.9 [place] [id number] [place] [address] 40778- 0299 Apr, Generalized anxiety disorder F41.1 and Dysthymic disorder F34.1 [place] [id number] [place] [address] 30368- 3478 Apr, Chronic kidney disease, stage 4 (severe) N18.4 [place] [id number] [place] [address] 46743- 2352 Apr, Generalized anxiety disorder F41.1 ; Major depression, recurrent F33.9 and Sleep disturbance G47.9 [place] [id number] [place] [address] 44508- 4710 Mar, Generalized anxiety disorder F41.1 and Dysthymic disorder F34.1 [place] [id number] [place] [address] 66100- 5231 Mar, Generalized anxiety disorder F41.1 ; Dysthymic disorder F34.1 and Insomnia G47.00 [facility] [id number] [place] [address] 53350- 4507 Mar, [facility] [id number] [place] [address] 71230- 3445 Mar, [facility] [id number] [place] [address] 58845- 7214 Mar, Osteoarthritis of knees, bilateral M17.0 [facility] [id number] [place] [address] 51909- 8312 Mar, Hypertension I10 ; Hypothyroid E03.9 ; Dysthymic disorder F34.1 ; Chronic kidney disease, stage 4 (severe) N18.4 and Nausea & vomiting R11.2 [place] [id number] [place] [address] 27711- 2095 Mar, Generalized anxiety disorder F41.1 ; Dysthymic disorder F34.1 and Insomnia G47.00 [place] [id number] [place] [address] 58756- 9098 Mar, Dehydration E86.0 ; Chronic kidney disease, stage 4 (severe ) N18.4 and Nausea & vomiting R11.2 [facility] [id number] [place] [address] 75553 -5006 Mar, Gastroenteritis K52.9 [facility] [id number] [place] [address] 90123- 1369 Mar, [facility] [id number] [place] [address] 16666- 7530 Mar, [place] [id number] [place] [address] 98807- 9786 Feb, Dysthymic disorder F34.1 and Generalized anxiety disorder F41.1 [facility] [id number] [place] [address] 75412- 7560 Jan, UTI (urinary tract infection) N39.0 ; Asthma J45.909 ; Coronary artery disease involving [place] coronary artery of [place] heart, angina presence unspecified I25.10 ; Hypertension I10 ; Hypothyroid E03.9 ; Vitamin D deficiency E55.9 ; Insomnia G47.00 ; Palpitations R00.2 ; Depressed F32.9 ; Restless leg G25.81 and Anxiety F41.9 [address] [address] 34128- 6993 Jan, Dysthymic disorder F34.1 and Generalized anxiety disorder F41.[address] 57502- 6396 Jan, [address] [address] 95806- 4860 Dec, [address] 68122- 2753 Dec, Alkalosis 276.3 ; Chronic kidney disease, 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.4 ; Hyperpotassemia 276.7 ; Secondary hyperparathyroidism, renal 588.81 ; Proteinuria 791.0 ; Unspecified vitamin D deficiency 268.9 ; Anemia in chronic kidney disease 285.21 ; Other and unspecified hyperlipidemia 272.4 ; Hypertension, essential, benign 401.1 and Chronic kidney disease (CKD), stage III (moderate) 585.[address] 70485- 7062 Dec, [place] [address] 56108- 1746 Dec, Depressive disorder, not elsewhere classified 311 and Generalized anxiety disorder 300.02 [address] [address] 46876- 3686 Dec, [place] [address] 65217- 8524 Dec, [place] [address] 45813- 2850 Nov, Depressive disorder, not elsewhere classified 311 and Generalized anxiety disorder 300.02 [place] [id number] [place] [address] 58071- 7187 Nov, Arthritis of both knees 716.96 [place] [id number] [place] [address] 01020- 8757 Nov, PAF (paroxysmal atrial fibrillation) 427.31 ; CAD (coronary artery disease) 414.00 ; Chest pain 786.50 and Chronic kidney disease (CKD) stage G4/A1, severely decreased glomerular filtration rate (GFR) between 15-29 mL/min/1.73 square meter and albuminuria creatinine ratio less than 30 mg/g 585.4 [place] [id number] [place] [address] 84279- 4488 Oct, Coronary atherosclerosis of unspecified type of vessel, [place] or graft 414.00 ; Chronic kidney disease, 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.4 ; Hypertension 401.9 and Edema 782.3 [place] [id number] [place] [address] 92736- 2671 Oct, Depressive disorder, not elsewhere classified 311 and Generalized anxiety disorder 300.02 [place] [id number] [place] [address] 83309- 5355 Oct, Depressive disorder, not elsewhere classified 311 and Generalized anxiety disorder 300.02 [place] [id number] [place] [address] 10608- 6694 Oct, [place] [id number] [place] [address] 91968- 8324 Oct, [place] [id number] [place] [address] 97065- 0716 Sep, [place] [id number] [place] [address] 91687- 8155 Sep, Chronic kidney disease, 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.4 [place] [id number] [place] [address] 19906- 6489 Sep, [place] [id number] [address]- 2515 Sep, Coronary atherosclerosis of unspecified type of vessel, [place] or graft 414.00 ; Hypertension 401.9 ; Edema 782.3 and Hypothyroidism 244.9 [facility] [id number] [place] [address] 59513- 7150 Sep, Coronary atherosclerosis of unspecified type of vessel, [place] or graft 414.00 ; Hypertension 401.9 ; Fibromyalgia 729.1 ; Edema 782.3 ; Hypothyroidism 244.9 and Anemia 285.9 [facility] [id number] [place] [address] 20315- 5838 Sep, Anxiety disorder, unspecified 300.00 and Depressive disorder , not elsewhere classified 311 [facility] [id number] [place] [address] 05745- 4455 Sep, [facility] [address] 64765- 1817 August, Generalized anxiety disorder 300.02 [facility] [id number] [place] [address] 15598- 2748 August, Closed fracture of lateral malleolus 824.2 [facility] [id number] [place] [address] 26878- 6883 Jul, [facility] [id number] [place] [address] 06387- 5304 Jul, [facility] [id number] [place] [address] 83692- 9793 Jun, [facility] [id number] [place] [address] 38505- 8807 Jun, [facility] [id number] [place] [address] 56376- 8627 Jun, [facility] [id number] [place] [address] 45296- 4419 Jun, [facility] [address] [place] [address]- 3852 Jun, [facility] [place] [facility] [address] [id number] [place] [address]- 0398 Jun, [facility] [place] [facility] [address] [id number] [place] [address]- 8805 May, 2014 [facility] [place] [facility] [address] [id number] [place] [address]- 9204 May, 2014 [facility] [place] [facility] [address] [id number] [place] [address]- 4772 May, 2014 [facility] [place] [facility] [address] [id number] [place] [address]- 4170 May, 2014 [facility] [place] [facility] [address] [facility] [id number] [place] [address]- 5223 16 May, 2014 [facility] [place] [facility] [address] [facility] [id number] [place] [address]- 0285 16 May, 2014 [facility] [place] [facility] [address] [id number] [place] [address]- 1286 May, 2014 [facility] [place] [facility] [address] [facility] [id number] [place] [address]- 7048 May, [facility] [place] [facility] [address] [facility] [id number] [place] [address]- 4265 10 May, 2014 [facility] [place] [facility] [address] [facility] [id number] [place] [address]- 6150 May, [facility] [place] [facility] [address] [facility] [id number] [place] [address]- 8587 Apr, [facility] [place] [facility] [address] [facility] [id number] [place] [address]- 7969 Apr, [facility] [place] [facility] [address] [facility] [id number] [place] [address]- 6006 Mar, [facility] [place] [facility] [address] [facility] [id number] [place] [address]- 8601 Mar, [facility] [place] [facility] [address] [id number] [place] [address]- 8393 Mar, [facility] [place] [facility] [address] [id number] [place] [address]- 7776 Mar, [facility] [place] [facility] [address] [id number] [place] [address]- 3216 Mar, [facility] [place] [facility] [address] [id number] [place] [address]- 5511 Mar, [facility] [place] [facility] [address] [id number] [place] [address]- 0119 Mar, [facility] [place] [facility] [address] [id number] [place] [address]- 3340 Feb, [facility] [place] [facility] [address] [id number] [place] [address]- 5653 Feb, [facility] [place] [facility] [address] [id number] [place] [address]- 7024 Feb, [facility] [place] [facility] [address] [id number] [place] [address]- 0695 Jan, [facility] [place] [facility] [address] [id number] [place] [address]- 4327 Jan, [facility] [place] [facility] [address] [id number] [address]- 3341 20 Jan, 2014 [facility] [place] [facility] [address] [id number] [address]- 6385 20 Jan, 2014 [facility] [place] [facility] [address] [id number] [place] [address]- 4513 13 Jan, 2014 [facility] [place] [facility] [address] [id number] [place] [address]- 3102 Jan, [facility] [place] [facility] [address] [id number] [place] [address]- 2665 Jan, [facility] [place] [facility] [address] [id number] [place] [address]- 7001 Jan, [facility] [place] [facility] [address] [id number] [place] [address]- 6330 Jan, [facility] [place] [facility] [address] [id number] [place] 6795 Jan, [facility] [place] [facility] [address] [id number] [place] [address]- 3209 Nov, [facility] [place] [facility] [address] [id number] [place] [address]- 3303 Nov, [facility] [place] [facility] [address] [id number] [place] [address]- 5012 Nov, [facility] [place] [facility] [address] [id number] [place] [address]- 0614 Oct, [facility] [place] [facility] [address] [id number] [place] [address]- 1076 Oct, [facility] [place] [facility] [address] [id number] [place] [address]- 2944 Oct, [facility] [place] [facility] [address] [id number] [place] [address]- 7836 Oct, [facility] [place] [facility] [address] [id number] [place] [address]- 6587 Oct, [facility] [place] [facility] [address] [id number] [place] [address]- 0013 Oct, [facility] [place] [facility] [address] [id number] [place] [address]- 9727 Oct, [facility] [place] [facility] [address] [id number] [place] [address]- 4360 Oct, [facility] [place] [facility] [address] [id number] [place] [address]- 8577 Oct, [facility] [place] [facility] [address] [id number] [place] [address]- 0424 Sep, [facility] [place] [facility] [address] [id number] [place] [address]- 2944 Sep, [facility] [place] [facility] [address] [id number] [place] [address]- 4075 Sep, [facility] [place] [facility] [address] [id number] [place] [address]- 3128 Sep, [facility] [place] [facility] [address] [id number] [place] [address]- 0159 Sep, [facility] [place] [facility] [address] [id number] [place] [address]- 5220 Sep, [facility] [place] [facility] [address] [id number] [place] [address]- 4804 Sep, [facility] [place] [facility] [address] [id number] [place] [address]- 6633 Sep, [facility] [place] [facility] [address] [id number] [place] [address]- 7829 Sep, [facility] [place] [facility] [address] [id number] [place] [address]- 0376 August, [facility] [place] [facility] [address] [id number] [place] [address]- 1053 August, [facility] [place] [facility] [address] [id number] [place] [address]- 6988 August, [facility] [place] [facility] [address] [id number] [address]- 1611 August, [facility] [place] [facility] [address] [id number] [place] [address]- 8167 August, [facility] [place] [facility] [address] [id number] [place] [address]- 5435 August, [facility] [place] [facility] [address] [id number] [place] 9736 Jul, [facility] [place] [facility] [address] [id number] [address]- 3848 Jul, [facility] [address] [id number] [place] [address]- 5300 Jul, [facility] [place] [facility] [address] [id number] [place] [address]- 1394 Jul, [facility] [place] [facility] [address] [facility] [id number] [place] [address]- 2734 Jul, [facility] [place] [facility] [address] [id number] [place] [address]- 9211 Jul, [facility] [place] [facility] [address] [id number] [place] [address]- 5210 Jun, [facility] [place] [facility] [address] [id number] [place] [address]- 8935 Jun, [facility] [place] [facility] [id number] [place] [address]- 5550 May, [facility] [place] [facility] [address] [facility] [id number] [place] [address]- 6522 May, [facility] [place] [facility] [address] [facility] [id number] [place] [address]- 3433 May, [facility] [place] [facility] [address] [facility] [id number] [place] [address]- 7448 May, [facility] [place] [facility] [address] [facility] [id number] [place] [address]- 9747 Apr, [facility] [place] [facility] [address] [facility] [id number] [place] [address]- 1146 Apr, [facility] [place] [facility] [address] [id number] [place] [address]- 0856 Mar, [facility] [place] [facility] [address] [id number] [place] [address]- 6984 Mar, [facility] [place] [facility] [address] [facility] [id number] [place] [address] 17 Mar, 2013 [facility] [place] [facility] [address] [id number] [place] [address] Mar, [facility] [place] [facility] [address] [id number] [place] [address] Mar, [facility] [place] [facility] [address] [id number] [place] [address] Mar, [facility] [place] [facility] [address] [id number] [place] [address] Feb, [facility] [place] [facility] [address] [id number] [place] [address] Feb, [facility] [place] [facility] [address] [id number] [place] [address] Feb, [facility] [place] [facility] [address] [id number] [place] [address] Feb, [facility] [place] [facility] [address] [id number] [place] [address] Feb, [facility] [place] [facility] [address] [id number] [place] [address] Feb, [facility] [place] [facility] [address] [id number] [place] [address] Jan, [facility] [place] [facility] [address] [id number] [place] [address] Jan, [facility] [place] [facility] [address] [id number] [place] [address] Jan, [facility] [place] [facility] [address] [id number] [place] [address] Jan, [facility] [place] [facility] [address] [id number] [place] [address] Jan, [facility] [place] [facility] [address] [id number] [place] [address] Jan, [facility] [place] [facility] [address] [id number] [place] [address] Dec, [facility] [place] [facility] [address] [id number] [place] [address] Dec, [facility] [place] [facility] [address] [id number] [place] [address] Nov, [facility] [place] [facility] [address] [id number] [place] [address] Nov, [facility] [place] [facility] [address] [id number] [place] [address] Oct, [facility] [place] [facility] [address] [id number] [place] [address] Oct, [facility] [place] [facility] [address] [id number] [place] [address] Oct, [facility] [place] [facility] [address] [id number] [place] [address] Oct, [facility] [place] [facility] [address] [id number] [place] [address] Oct, [facility] [place] [facility] [address] [id number] [place] [address] Oct, [facility] [place] [facility] [address] [id number] [place] [address] Sep, [facility] [place] [facility] [address] [id number] [place] [address] Sep, [facility] [place] [facility] [address] [id number] [place] [address] Sep, [facility] [place] [facility] [address] [id number] [place] [address] Sep, [facility] [place] [facility] [address] [id number] [place] [address] August, [facility] [place] [facility] [address] [id number] [place] [address] August, [facility] [place] [facility] [address] [id number] [place] [address] August, [facility] [address] [id number] [place] [address] August, [facility] [address] [id number] [place] [address] August, [facility] [address] [id number] [place] [address] Jul, [facility] [address] [id number] [place] [address] Jul, [facility] [address] [id number] [place] [address] Jul, [facility] [address] [id number] [place] [address] Jul, [facility] [address] [id number] [place] [address] Jul, [facility] [address] [id number] [place] [address] Jul, [facility] [address] [id number] [place] [address] Jul, [facility] [address] [id number] [address] Jul, [facility] [address] [id number] [place] [address] Jul, [facility] [address] [id number] [address] Jul, [facility] [address] [id number] [id number] Jun, [facility] [address] [facility] [id number] [place] [address] Jun, [facility] [address] [facility] [id number] [address] Jun, [facility] [address] [id number] [place] [address] Jun, [facility] [address] [id number] [place] [address] Jun, [facility] [place] [facility] [address] [id number] [place] [address] May, [facility] [place] [facility] [address] [id number] [place] [address] May, [facility] [address] [id number] [place] [address] May, [facility] [address] [id number] [place] [address] Apr, [facility] [address] [id number] [place] [address] Apr, [facility] [address] [id number] [place] [address] 95[address] Apr, [facility] [address] [id number] [place] [address] 89[address] Apr, [facility] [address] [id number] [place] [address] 39[address] Apr, [facility] [address] [id number] [place] [address] Apr, [facility] [address] [id number] [place] [address] Mar, [facility] [place] [facility] [address] [id number] [place] [address] Mar, [facility] [place] [facility] [address] [id number] [place] [address]- 0661 Mar, [facility] [place] [facility] [address] [id number] [place] [address]- [address]85 Mar, [facility] [address] [id number] [place] [address]- 38[address] Feb, [facility] [place] [facility] [address] [id number] [place] [address]- 75[address] Feb, [facility] [place] [facility] [address] [id number] [place] [address]- 2298 Feb, [facility] [place] [facility] [address] [id number] [place] [address]- 8706 Feb, [facility] [place] [facility] [address] [id number] [place] [address]- 9[address] Feb, [facility] [place] [facility] [address] [id number] [place] [address] 84[address] Feb, [facility] [place] [facility] [address] [id number] [place] [address]- 46[address] Feb, [facility] [place] [facility] [address] [id number] [place] [address] Feb, [facility] [place] [facility] [address] [id number] [place] [address]- 29[address] Feb, [facility] [place] [facility] [address] [id number] [place] [address]- 96[address] Feb, [facility] [place] [facility] [address] [id number] [place] [address]- 9[address] Feb, [facility] [place] [facility] [address] [id number] [place] [address]- [address] Feb, [facility] [place] [facility] [address] [id number] [place] [address] Feb, [facility] [place] [facility] [address] [id number] [place] [address]- 7190 Feb, [facility] [place] [facility] [address] [id number] [place] [address]- 5[address] Feb, [facility] [place] [facility] [address] [id number] [place] [address]- 9161 Feb, [facility] [place] [facility] [address] [id number] [place] [address]- [address] 31 Jan, 2011 [facility] [place] [facility] [address] [id number] [place] [address]- 7714 31 Jan, 2011 [facility] [place] [facility] [address] [id number] [place] [address]- 63[address] 31 Jan, 2011 [facility] [place] [facility] [address] [id number] [place] [address]- 47[address] 31 Jan, 2011 [facility] [place] [facility] [address] [id number] [place] [address]- 6788 30 Jan, 2012 [facility] [place] [facility] [address] [id number] [place] [address]- 0697 Jan, [facility] [place] [facility] [address] [id number] [place] [address]- 6[address] Jan, [facility] [place] [facility] [address] [id number] [place] [address]- 8928 16 Jan, 2012 [facility] [place] [facility] [address] [id number] [place] [address]- [address]204 16 Jan, 2012 [facility] [place] [facility] [address] [id number] [place] [address]- 7733 15 Jan, 2012 [facility] [place] [facility] [address] [id number] [place] [address]- 8921 15 Jan, 2012 [facility] [place] [facility] [address] [id number] [place] [address]- 99[address] Jan, [facility] [place] [facility] [address] [id number] [place] [address]- 3654 26 Dec, 2011 [facility] [place] [facility] [address] [id number] [place] [address]- 5653 26 Dec, 2011 [facility] [place] [facility] [address] [id number] [place] [address]- 2710 24 Dec, 2011 [facility] [place] [facility] [address] [id number] [place] [address]- 0725 23 Dec, 2011 [facility] [place] [facility] [address] [id number] [place] [address]- 5899 22 Dec, 2011 [facility] [place] [facility] [address] [id number] [place] [address]- 9336 21 Dec, 2011 [facility] [place] [facility] [address] [id number] [place] [address]- 7502 20 Dec, 2011 [facility] [place] [facility] [address] [id number] [place] [address]- 8[address] 20 Dec, 2011 [facility] [place] [facility] [address] [id number] [place] [address]- 5682 07 Sep, 2011 [facility] [place] [facility] [address] [id number] [place] [address]- 3925 06 Sep, 2011 [facility] [place] [facility] [address] [id number] [place] [address]- 6[address] 06 Dec, 2011 [facility] [place] [facility] [address] [id number] [place] [address]- 9337 05 Dec, 2011 [facility] [place] [facility] [address] [id number] [place] [address]- 5999 23 Nov, 2011 [facility] [place] [facility] [address] [id number] [place] [address]- 8846 17 Nov, 2011 [facility] [place] [facility] [address] [id number] [place] [address]- 7556 13 Nov, 2011 [facility] [place] [facility] [address] [id number] [address]- [address] 10 Nov, 2011 [facility] [place] [facility] [address] [id number] [place] [address]- 9403 08 Nov, 2011 [facility] [place] [facility] [address] [id number] [place] [address]- 1378 07 Nov, 2011 [facility] [place] [facility] [address] [id number] [place] [address]- 5071 Nov, [facility] [place] [facility] [address] [id number] [place] [address]- 1993 Nov, [facility] [address] [id number] [place] [address]- 1362 Oct, [facility] [place] [facility] [address] [id number] [place] [address]- 4796 Oct, [facility] [place] [facility] [address] [id number] [place] [address]- 1316 Oct, [facility] [place] [facility] [address] [id number] [place] [address]- 4332 Oct, [facility] [place] [facility] [address] [id number] [place] [address]- 5427 Oct, [facility] [place] [facility] [address] [id number] [place] [address]- 4438 Oct, [facility] [address] [id number] [place] [address]- 4792 Oct, [facility] [place] [facility] [address] [id number] [place] [address]- 8408 Sep, [facility] [place] [facility] [address] [id number] [place] [address]- 1896 Sep, [facility] [place] [facility] [address] [id number] [place] [address]- 9018 August, [facility] [place] [facility] [address] [id number] [place] [address]- 5049 August, [facility] [place] [facility] [address] [id number] [place] [address]- 4131 August, [facility] [place] [facility] [address] [id number] [place] [address]- 5081 August, [facility] [place] [facility] [address] [id number] [place] [address]- 4715 Jul, [facility] [place] [facility] [address] [id number] [place] [address]- 1653 Jul, [facility] [place] [facility] [address] [id number] [place] [address]- 8158 06 Jul, 2011 [facility] [place] [facility] [address] [id number] [place] [address]- 8516 Jul, [facility] [place] [facility] [address] [id number] [place] [address]- 9446 Jul, [facility] [place] [facility] [address] [id number] [place] [address]- 2286 Jul, [facility] [place] [facility] [address] [id number] [place] [address]- 5764 Jul, [facility] [place] [facility] [address] [id number] [place] [address]- 8399 Jul, [facility] [place] [facility] [address] [id number] [place] [address]- 9379 Jul, [facility] [place] [facility] [address] [id number] [place] [address]- 7537 Jun, [facility] [place] [facility] [address] [id number] [place] [address]- 7354 Jun, [facility] [place] [facility] [address] [id number] [place] [address]- 5564 15 Jun, 2011 [facility] [place] [facility] [address] [id number] [place] [address]- 0152 14 Jun, 2011 [facility] [place] [facility] [address] [id number] [place] [address]- 7818 Jun, [facility] [place] [facility] [address] [id number] [place] [address]- 6952 Jun, [facility] [place] [facility] [address] [id number] [place] [address]- 9936 Jun, [facility] [place] [facility] [address] [id number] [place] [address]- 7456 May, [facility] [place] [facility] [address] [id number] [place] [address]- 1213 May, [facility] [address] [id number] [place] [address]- 0766 May, [facility] [place] [facility] [address] [id number] [place] [address]- 6416 May, [facility] [place] [facility] [address] [id number] [place] [address] 2546 May, [facility] [place] [facility] [address] [id number] [place] [address] 254 Apr, [facility] [place] [facility] [address] [id number] [place] [address]- 1268 Apr, [facility] [place] [facility] [address] [id number] [place] [address]- 5941 Apr, [facility] [address] [id number] [place] [address]- 8105 Apr, [facility] [place] [facility] [address] [id number] [place] [address]- 9922 Apr, [facility] [address] [id number] [place] [address]- 6857 Mar, [facility] [place] [facility] [address] [id number] [place] [address]- 2371 Mar, [facility] [address] [id number] [address]- 2586 Mar, [facility] [place] [facility] [address] [id number] [place] [address]- 2546 Mar, [facility] [place] [facility] [address] [id number] [place] [address] 2546 Mar, [facility] [place] [facility] [address] [id number] [place] [address]- 0371 Mar, [facility] [place] [facility] [address] [id number] [place] [address]- 0008 Mar, [facility] [place] [facility] [address] [id number] [place] [address]- 1059 11 Feb, 2011 [facility] [place] [facility] [address] [id number] [place] [address]- 6862 Feb, [facility] [place] [facility] [address] [id number] [place] [address]- 1726 Feb, [facility] [place] [facility] [address] [id number] [place] [address]- 7089 Feb, [facility] [place] [facility] [address] [id number] [place] [address]- 5280 Jan, [facility] [place] [facility] [address] [id number] [place] [address]- 6379 Jan, [facility] [place] [facility] [address] [id number] [place] [address]- 4906 Jan, [facility] [place] [facility] [address] [id number] [place] [address]- 3060 Jan, [facility] [place] [facility] [address] [id number] [place] [address]- 8005 Nov, [facility] [place] [facility] [address] [id number] [place] [address]- 7723 Mar, [facility] [place] [facility] [address] [id number] [place] [address]- 7926 Mar, [facility] [place] [facility] [address] [id number] [place] [address]- 7126 Mar, [facility] [place] [facility] [address] [id number] [place] [address] 2548 Mar, [facility] [place] [facility] [address] [id number] [place] [address]- 4477 Mar, [facility] [place] [facility] [address] [id number] [place] [address]- 4356 Mar, [facility] [place] [facility] [address] [id number] [place] [address]- 0261 Feb, [facility] [address] [facility] [id number] [place] [address]- 1566 Feb, [facility] [address] [facility] [id number] [place] [address]- 8535 Jan, [facility] [address] [facility] [id number] [place] [address]- 4320 Jan, [facility] [address] [facility] [id number] [place] [address]- 7815 Jan, IMMUNIZATIONS No Known Immunizations SOCIAL HISTORY Never Assessed REASON FOR VISIT f/u PLAN OF CARE Activity Details Follow Up prn Reason: VITAL SIGNS MEDICATIONS Unknown Medications RESULTS No Results PROCEDURES Procedure Date Ordered Result Body Site [facility] VISIT MENTAL HEALTH ESTAB PT Nov 28, 2017 Psychotherapy, patient &/family, 45 minutes, established patient Nov 28, 2017 INSTRUCTIONS MEDICATIONS ADMINISTERED No Known Medications [...] 2020 & 2007 Surgical History Bladder surgery [facility] 03/2016 Surgical History 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
--- OUTSIDE RECORDS SUMMARY | 2018-05-29 07:50 | XMS REPORT ---
Author Author ZHANE BOSCH [facility] Address [address] [place] [address] Care Team Providers Care Security Systems Integrator Name Role Phone ZHANE BOSCH Unavailable PROBLEMS Type Condition ICD9-CM Code VVN86-CS Code Onset Dates Condition Status SNOMED Code Problem Low back pain M54.5 Active 438325237 Problem Abnormal chest CT R93.8 Active 007517258 Problem Dysthymic disorder F34.1 Active 60381196 Problem Generalized anxiety disorder F41.1 Active 79127391 Problem Coronary artery disease involving [place] coronary artery of [place] heart, angina presence unspecified I25.10 Active 5422782540216 Problem Restless leg G25.81 Active 05950595 Problem Hypothyroid E03.9 Active 71140905 Problem Insomnia G47.00 Active 802749723 Problem Asthma J45.909 Active 559508398 Problem Chronic kidney disease, unspecified N18.9 Active 362176336 Problem Palpitations R00.2 Active 32037019 Problem Anemia in chronic kidney disease D63.1 Active 593557641819244 Problem Depressed F32.9 Active 37521336 Problem Bipolar disorder, current episode manic without psychotic features F31.10 Active 293347552 Problem Primary osteoarthritis of left knee M17.12 Active 740572164 Problem Degenerative tear of medial meniscus of left knee M23.204 Active 679545435 Problem Chronic pain syndrome G89.4 Active 032041908 Problem Restless leg syndrome G25.81 Active 01480206 Problem History of colon polyps Z86.010 Active 102178420 Problem Functional 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 Active 17237829 Problem Chronic kidney disease, stage 4 (severe) N18.4 Active 433390575 Problem Stage 3 chronic kidney disease N18.3 Active 243474245 Problem Mood disorder F39 Active 02483539 Problem Seasonal allergic rhinitis due to pollen J30.1 Active 80841839 Problem Body mass index (BMI) of 40.0-44.9 in adult Z68.41 Active 290536395 Problem Other seasonal allergic rhinitis J30.2 Active 151360505 Problem Long-term use of high-risk medication Z79.899 Active 486339916 Problem Hypokalemia E87.6 Active 81640038 Problem Asthma with acute exacerbation in adult J45.901 Active 315594640 Problem History of anemia Z86.2 Active 217177098 Problem Vitamin D deficiency E55.9 Active 64039619 Problem Essential (primary) hypertension I10 Active 02675215 Problem Fibromyalgia M79.7 Active 117752267 Problem Mixed stress and urge urinary incontinence N39.46 Active 538570765 ALLERGIES No Information ENCOUNTERS Encounter Location Date Diagnosis [place] [id number] [address] Jan, [facility] [address] [address] Jan, [facility] [address] [address]- [address] Dec, [facility] [address] [address]- [address]287 Dec, Fibromyalgia M79.7 [facility] [address] [address]- [address] Nov, [facility] [address] [address]- 3894 Nov, [facility] [address] [address]- [address]289 Nov, [facility] [address] [address]- 1494 Nov, Fibromyalgia M79.7 ; Vision changes H53.9 ; Chest wall pain R07.89 and Chronic pain syndrome G89.4 [facility] [address] [address]- [address] Nov, [facility] [address] [address]- [address] Nov, Rash of hands R21 [facility] [address] [place] [address] Nov, Generalized anxiety disorder F41.1 and Major depressive disorder, recurrent episode with anxious distress F33.9 [facility] [address], [place] [address] 9[address] Nov, Fibromyalgia M79.7 [facility] [address] [place] [id number] [place] [address] 73411- 3156 Nov, Complicated UTI (urinary tract infection) N39.0 [facility] [address] [place] [id number] [place] [address] 83332- 5676 Oct, [place] [address] [place] [id number] [place] [address] 22023- 2857 Oct, Generalized anxiety disorder F41.1 and Major depressive disorder, recurrent episode with anxious distress F33.9 [place] [address] [place] [id number] [place] [address] 75687- 6309 Oct, [facility] [address] [place] [id number] [place] [address] 74317- 9946 Oct, Fibromyalgia M79.7 [facility] [address] [place] [id number] [place] [address] 28961- 9852 Sep, Restless leg syndrome G25.81 and Restless leg G25.81 [place] [id number] [place] [address] 22388- 5219 Sep, [place] [address] [place] [id number] [place] [address] 46744- 7011 Sep, Seasonal allergic rhinitis due to pollen J30.1 ; Screening for breast cancer Z12.31 ; Chest pain at rest R07.9 ; Restless leg syndrome G25.81 ; Essential (primary) hypertension I10 and Depressed F32.9 [facility] [address], [place] [address] 5763 August, Fibromyalgia M79.7 [facility] [address] [place] [id number] [place] [address] 13457- 1949 August, [facility] [address] [place] [id number] [place] [address] 59515- 8380 August, [place] [address] [place] [id number] [place] [address] 92151- 7739 August, Abnormal chest CT R93.8 [place] [address] 23925- 0828 August, Generalized anxiety disorder F41.1 and Major depressive disorder, recurrent episode with anxious distress F33.9 [place] [address] 23700- 4896 August, Ab[address] chest [address] R93.8 [place] [address] [place] [id number] [place] [address] 37702- 8513 Jul, [place] [address] 8[address]35- 0749 Jul, Chronic kidney disease, stage 4 (severe) N18.4 [place] [address] [place] [id number] [place] [address] 73265- 6425 Jul, [place] [address] [place] [id number] [place] [address] 06364- 7073 Jul, Restless leg G25.81 ; Mixed stress and urge urinary incontinence N39.46 and Fibromyalgia M79.7 [place] [address] [place] [id number] [place] [address] 93281- 1430 Jul, Chronic kidney disease, stage 4 (severe) N18.4 [place] [address] [place] [id number] [place] [address] 72571- 7493 Jun, Orthostatic hypotension I95.1 ; Chronic kidney disease, stage 4 (severe) N18.4 ; Chest wall discomfort R07.89 and Body mass index (BMI) of 40.0-44.9 in adult Z68.41 [place] [address] 21558- 8353 Jun, [facility] [address], [place] [address]- 4997 Jun, Orthostatic hypotension I95.1 [facility] [address] [place] [id number] [place] [address] 15706- 0095 Jun, [facility] [address] [place] [id number] [place] [address] 72582 -3405 Jun, Orthostatic hypotension I95.1 ; Dysuria R30.0 and Acute cystitis without hematuria N30.00 [facility] [id number] [place] [address] 25262- 3469 Jun, [facility] [address] [place] [id number] [place] [address] 23498- 4176 Jun, Chronic kidney disease, stage 4 (severe) N18.4 [facility] [address] [place] [id number] [place] [address] 32842- 0573 Jun, Fibromyalgia M79.7 [facility] [address] [place] [id number] [place] [address] 77008- 8113 Jun, [facility] [address] [place] [id number] [place] [address] 27317- 8367 Jun, [facility] [address] [place] [id number] [place] [address] 09708- [address] May, [address] R93.8 and Stage 3 chronic kidney disease N18.3 [facility] [id number] [place] [address] 17485- 6827 May, Chronic kidney disease, stage 4 (severe) N18.4 [facility] [address] [place] [id number] [place] [address] 17417- 1230 May, Chronic kidney disease, stage 4 (severe) N18.4 [facility] [id number] [place] [address] 33055- [address] May, [address] R93.8 [facility] [address], [place] [address]- 6974 May, [facility] [id number] [place] [address] 99937- 5192 May, [facility] [address], [place] [address]- 8602 May, Generalized anxiety disorder F41.1 and Major depressive disorder, recurrent episode with anxious distress F33.9 [facility] [address], [place] [address]- 9248 May, Mood disorder F39 [facility] [id number] [place] [address] 56304- 6032 Apr, [place] [address], [place] [address]- 3102 Apr, Infected skin lesion L08.9 and Muscle strain of right shoulder region, initial encounter S46.911A [facility] [address], [place] [address]- 1472 Apr, Generalized anxiety disorder F41.1 and Major depressive disorder, recurrent episode with anxious distress F33.9 [facility] [address], [place] [address]- 2109 Apr, [facility] [address], [place] [address]- 1751 Apr, Recent urinary tract infection Z87.440 and Hypothyroid E03.9 [facility] [address] [place] [id number] [address]- 0[address] Apr, Generalized anxiety disorder F41.1 and Major depressive disorder, recurrent episode with anxious distress F33.9 [facility] [address] [place] [id number] [address]- 7624 Apr, Recent urinary tract infection Z87.440 [facility] [address], [place] [address]- 4927 Mar, [facility] [address], [place] [address] Mar, Dysuria R30.0 ; Acute cystitis without hematuria N30.00 and BMI 40.0-44.9, adult Z68.41 [facility] [id number] [place] [address] 67138- 6954 Mar, [facility] [address] 32436- 9242 Mar, [facility] [address] [place] [id number] [place] [address] 79736- 2350 Mar, Generalized anxiety disorder F41.1 and Major depressive disorder, recurrent episode with anxious distress F33.9 [place] [address] [place] [id number] [place] [address] 21980- 3040 Feb, Conjunctivitis, bacterial H10.9 [place] [address] [place] [id number] [place] [address] 73991- 5421 Feb, [facility] [address] [place] [id number] [place] [address] 56849 -0408 Feb, Conjunctivitis, bacterial H10.9 [facility] [address] [place] [id number] [place] [address] 93567- 1149 Feb, [facility] [address] [place] [id number] [place] [address] 06998 -2996 Feb, Dysuria R30.0 ; Acute cystitis N30.00 and BMI 40.0-44.9, adult Z68.41 [facility] [address] [place] [id number] [place] [address] 32366- 9479 Feb, [place] [address] [place] [id number] [place] [address] 78091- 8468 Feb, Generalized anxiety disorder F41.1 and Major depressive disorder, recurrent episode with anxious distress F33.9 [facility] [address] [place] [id number] [place] [address] 89328- 9831 Feb, Mood disorder F39 and BMI 40.0-44.9, adult Z68.41 [place] [address] [place] [id number] [place] [address] 65616- 9054 Jan, [facility] [address] [place] [id number] [place] [address] 49870- 7627 Jan, [place] [address] 84513- 3186 Jan, Hypothyroid E03.9 [place] [address] 32227- 5169 Jan, [place] [address] 36559- 7020 Jan, Chronic kidney disease, unspecified N18.9 ; Hypokalemia E87.6 ; Essential (primary) hypertension I10 ; Fibromyalgia M79.7 ; Coronary artery disease involving [place] coronary artery of [place] heart, angina presence unspecified I25.10 ; Hypothyroid E03.9 and Encounter for immunization Z23 [place] [address] [place] [id number] [place] [address] 50208- 6736 Jan, Hypothyroid E03.9 [place] [address] [place] [id number] [place] [address] 44040- 6962 Jan, [place] [address] [place] [id number] [place] [address] 80135- 4894 Dec, Vitamin D deficiency E55.9 [place] [address] [place] [id number] [place] [address] 81471- 9263 Dec, Primary osteoarthritis of left knee M17.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 [place] [address] [place] [id number] [place] [address] 47039- 4509 Dec, Fibromyalgia M79.7 [facility] [address] [place] [id number] [place] [address] 63369- 3541 Dec, Mood disorder F39 [facility] [address], [place] [address]- 3485 13 Dec, 2016 [facility] [id number] [place] [address] 36648- 9738 13 Dec, 2016 Generalized anxiety disorder F41.1 and Major depressive disorder, recurrent episode with anxious distress F33.9 [facility] [address], [place] [address]- 1337 11 Dec, 2016 [facility] [id number] [place] [address] 69919- 9967 08 Dec, 2016 Streptococcal meningitis G00.2 [facility] [id number] [place] [address] 85069- 4514 07 Dec, 2016 Streptococcal meningitis G00.2 [facility] [id number] [place] [address] 48479- 7611 07 Dec, 2016 [facility] [id number] [place] [address] 48073- 4441 06 Dec, 2016 Streptococcal meningitis G00.2 [facility] [address], [place] [address]- 1733 06 Dec, 2016 [facility] [id number] [place] [address] 39570- 2619 06 Dec, 2016 Major depressive disorder, recurrent episode with anxious distress F33.9 [facility] [address], [place] [address]- 4777 Nov, Fever, unspecified fever cause R50.9 [facility] [address], [place] [address]- 3042 Nov, [facility] [id number] [place] [address] 86338- 0089 Nov, Hypothyroid E03.9 [facility] [address], [place] [address]- 2758 10 Nov, 2016 Generalized anxiety disorder F41.1 and Major depressive disorder, recurrent episode with anxious distress F33.9 [facility] [address], [place] [address]- 1173 Nov, [facility] [address] [place] [id number] [place] [address] [id number] Oct, Dental examination Z01.20 [facility] [id number] [place] [address] 18100- 2753 Oct, Generalized anxiety disorder F41.1 and Major depressive disorder, recurrent episode with anxious distress F33.9 [facility] [address] [place] [id number] [place] [address] 08271- 2700 Oct, Chronic kidney disease, stage 4 (severe) N18.4 [facility] [address] [place] [id number] [place] [address] 77259- 8177 Oct, [facility] [address] [place] [id number] [place] [address] 20169- 2876 Oct, Fibromyalgia M79.7 [facility] [address] [place] [id number] [place] [address] 25313- 0790 Oct, [facility] [address] [place] [id number] [place] [address] 62829- 3109 Oct, Generalized anxiety disorder F41.1 ; Major depressive disorder, recurrent episode with anxious distress F33.9 and Bipolar disorder, current episode manic without psychotic features F31.10 [facility] [address], [place] [address]- 1848 Sep, [facility] [id number] [place] [address] 47222- 8803 Sep, [facility] [address] [place] [id number] [place] [address] 36689- 9218 Sep, Vitamin D deficiency E55.9 [facility] [id number] [place] [address] 13393- 8213 14 Sep, 2016 Vitamin D deficiency E55.9 [facility] [address] [place] [id number] [place] [address] 36292- 4755 Sep, [place] [id number] [place] [address] 16545- 7095 Sep, Chronic kidney disease, stage 4 (severe) N18.4 ; Hypothyroid E03.9 ; Restless leg G25.81 ; Fibromyalgia M79.7 ; Essential ( primary) hypertension I10 ; Vitamin D deficiency E55.9 ; Dyspepsia R10.13 ; Anemia in chronic kidney disease D63.1 ; Chronic kidney disease, unspecified N18.9 ; Coronary artery disease involving [place] coronary artery of [place] heart , angina presence unspecified I25.10 ; Screening breast examination Z12.39 and Low back pain M54.5 [place] [address] [place] [id number] [place] [address] 47122- 8896 August, Generalized anxiety disorder F41.1 and Major depressive disorder, recurrent episode with anxious distress F33.9 [place] [address] [place] [id number] [place] [address] 19383- 2349 August, Generalized anxiety disorder F41.1 and Major depressive disorder, recurrent episode with anxious distress F33.9 [place] [address] [place] [id number] [place] [address] 93988- 3379 August, Fibromyalgia M79.7 [place] [address] [place] [id number] [place] [address] 56036- 7402 Jul, Generalized anxiety disorder F41.1 and Major depressive disorder, recurrent episode with anxious distress F33.9 [place] [address] [place] [id number] [place] [address] 97409- 1494 Jul, Fibromyalgia M79.7 [place] [address] [place] [id number] [place] [address] 44311- 4577 Jul, Generalized anxiety disorder F41.1 [place] [address] [place] [id number] [place] [address] 46286- 2771 May, [place] [address] [place] [id number] [place] [address] 27125- 8674 May, Hypothyroid E03.9 [place] [address], [place] [address]- 7779 08 May, 2016 Chronic kidney disease, stage 4 (severe) N18.4 ; Hypothyroid E03.9 ; Restless leg G25.81 ; Fibromyalgia M79.7 ; Essential ( primary) hypertension I10 ; Vitamin D deficiency E55.9 ; Dyspepsia R10.13 ; Acute non-recurrent maxillary sinusitis J01.00 ; Anemia in chronic kidney disease D63.1 ; Chronic kidney disease, unspecified N18.9 and Coronary artery disease involving [place] coronary artery of [place] heart, angina presence unspecified I25.10 [place] [address] [place] [id number] [place] [address] 62004- 2536 May, Vitamin D deficiency, unspecified E55.9 [place] [address] [place] [id number] [place] [address] 54328- 3677 May, Generalized anxiety disorder F41.1 and Major depressive disorder, recurrent episode with anxious distress F33.9 [place] [address] [place] [id number] [place] [address] 32048- 3933 Apr, Pain in right knee M25.561 and Pain in left knee M25.562 [place] [address] [place] [id number] [place] [address] 69377- 7004 Apr, [place] [address] [place] [id number] [place] [address] 73785- 7637 Apr, [place] [address] [place] [id number] [place] [address] 09640- 1014 Apr, [place] [address] [place] [id number] [place] [address] 73864- 5106 Mar, Generalized anxiety disorder F41.1 and Major depressive disorder, recurrent episode with anxious distress F33.9 [place] [address] [place] [id number] [place] [address] 14463- 9345 Mar, Generalized anxiety disorder F41.1 and Major depressive disorder, recurrent episode with anxious distress F33.9 [place] [address] [place] [id number] [place] [address] 21717- 6961 Mar, [facility] [address] 98276- 6901 Mar, [facility] [address] [place] [id number] [place] [address] 29654- 1924 Mar, [facility] [address] 70179- 6140 Mar, Asthma J45.909 and Fibromyalgia M79.7 [place] [address] 98972- 8977 Mar, Chronic kidney disease, stage 4 (severe) N18.4 ; Vitamin D deficiency E55.9 and Essential (primary) hypertension I10 [place] [address] 79496- 7684 Feb, [place] [address] 09255- 4281 Feb, Dysuria R30.0 ; Mixed stress and urge urinary incontinence N39.46 ; Fibromyalgia M79.7 and Chronic kidney disease, stage IV (severe) N18.4 [place] [address] [place] [id number] [place] [address] 29241- 5253 Feb, Chronic kidney disease, stage 4 (severe) N18.4 [place] [address] [place] [id number] [place] [address] 15618- 6706 Feb, Chronic kidney disease, stage 4 (severe) N18.4 [place] [address] [place] [id number] [place] [address] 77562- 7585 Feb, [place] [address] [place] [id number] [place] [address] 52761- 3730 Feb, Vitamin D deficiency, unspecified E55.9 [place] [address] [place] [id number] [place] [address] 24794- 8457 Jan, [place] [id number] [place] [address] 89195- 3365 Jan, [facility] [id number] [place] [address] 45892- 0984 Dec, [facility] [id number] [place] [address] 29250- 2537 Dec, Chronic kidney disease, stage 4 (severe) N18.4 [facility] [id number] [place] [address] 63058- 5096 Dec, Dysthymic disorder F34.1 and Generalized anxiety disorder F41.1 [place] [address] [place] [id number] [place] [address] 63842- 9453 Dec, [facility] [id number] [place] [address] 07393- 0390 Dec, [facility] [id number] [place] [address] 86713- 8420 Dec, Dysthymic disorder F34.1 and Generalized anxiety disorder F41.1 [facility] [id number] [place] [address] 80614- 9094 Dec, Dysuria R30.0 ; Chronic kidney disease, stage 4 (severe) N18.4 ; Hypertension I10 ; Dyspepsia R10.13 ; Yeast dermatitis B37.2 ; Palpitations R00.2 ; Hypothyroid E03.9 ; Functional 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 and Other seasonal allergic rhinitis J30.2 [facility] [id number] [place] [address] 82177 -5782 Dec, [facility] [id number] [place] [address] 96421 -7650 Nov, Dysuria R30.0 and Stress incontinence N39.3 [facility] [id number] [place] [address] 31110- 6245 Nov, [facility] [id number] [place] [address] 94813- 1407 Nov, [place] [address] [place] [address] [id number] [place] [address]- 8617 Nov, Osteoarthritis of knees, bilateral M17.0 [place] [address] [address]- [address] Nov, Dysthymic disorder F34.1 and Generalized anxiety disorder F41.1 [place] [address] [address]- [address] Nov, [place] [address] [address]- [address] Nov, [place] [address] 7[address]- [address] Nov, Urgency of urination R39.15 [place] [address] [address]- [address] Nov, [place] [address] [address]- [address] Nov, Chronic kidney disease, stage 4 (severe) N18.4 [place] [address] 86[address]- [address] Oct, Hypertension I10 ; Coronary artery disease involving [place] coronary artery of [place] heart, angina presence unspecified I25.10 ; Palpitations R00.2 ; Hypothyroid E03.9 ; Right foot pain M79.671 ; Functional 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 and Other seasonal allergic rhinitis J30.2 [place] [address] [address] [id number] [place] [address] 32476- 9234 Oct, Dysthymic disorder F34.1 and Generalized anxiety disorder F41.1 [place] [address] 53266- 1088 Sep, [place] [id number] [place] [address] 78682- 3951 Sep, [place] [address] 97527- 0539 Sep, [place] [id number] [place] [address] 75143- 9113 Sep, [place] [id number] [place] [address] 29263- 1807 Sep, [place] [id number] [place] [address] 56322- 0103 Sep, Dysthymic disorder F34.1 and Generalized anxiety disorder F41.1 [place] [id number] [place] [address] 68994- 3069 16 Sep, 2015 Asthma with acute exacerbation in adult J45.901 ; Dysuria R30.0 ; Chronic kidney disease, stage 4 (severe) N18.4 and History of anemia Z86.2 [place] [id number] [place] [address] 75795- 9517 Sep, Generalized anxiety disorder F41.1 and Dysthymic disorder F34.1 [place] [id number] [place] [address] 46435- 5132 August, Screening breast examination Z12.39 and Acute recurrent maxillary sinusitis J01.01 [place] [id number] [place] [address] 36896- 3971 August, Osteoarthritis of knees, bilateral M17.0 [place] [id number] [place] [address] 68275- 6163 August, Chronic kidney disease, stage 4 (severe) N18.4 ; Acute non- recurrent maxillary sinusitis J01.00 ; Urinary problem R39.89 ; Bowel habit changes R19.4 ; Functional 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 and History of colon polyps Z86.010 [place] [id number] [place] [address] 04173- 6424 Jul, Dysthymic disorder F34.1 and Generalized anxiety disorder F41.1 [place] [id number] [place] [address] 11146- 0729 Jul, [facility] [address] [address]- 1671 Jul, Dysthymic disorder F34.1 ; Generalized anxiety disorder F41.1 and halfway use of drug Z79.899 [facility] [address] [address]- 7595 Jul, [facility] [id number] [place] [address] 49882- 1833 Jun, [facility] [id number] [place] [address] 79251- 5660 Jun, [place] [id number] [place] [address] 99638- 0169 May, [place] [id number] [place] [address] 14921- 5113 May, Dysthymic disorder F34.1 and Generalized anxiety disorder F41.1 [place] [id number] [place] [address] 14454- 1063 Apr, Kidney disease N28.9 [place] [id number] [place] [address] 34057- 2059 Apr, Generalized anxiety disorder F41.1 and Dysthymic disorder F34.1 [place] [id number] [place] [address] 92999- 4116 Apr, Chronic kidney disease, stage 4 (severe) N18.4 [place] [id number] [place] [address] 46152- 5258 Apr, Generalized anxiety disorder F41.1 ; Major depression, recurrent F33.9 and Sleep disturbance G47.9 [place] [id number] [place] [address] 07442- 0126 Mar, Generalized anxiety disorder F41.1 and Dysthymic disorder F34.1 [place] [id number] [place] [address] 69142- 8642 Mar, Generalized anxiety disorder F41.1 ; Dysthymic disorder F34.1 and Insomnia G47.00 [facility] [id number] [place] [address] 42484- 5464 Mar, [facility] [id number] [place] [address] 42923- 2450 Mar, [facility] [address] 54451- 7849 Mar, Osteoarthritis of knees, bilateral M17.0 [facility] [id number] [place] [address] 73362- 0215 Mar, Hypertension I10 ; Hypothyroid E03.9 ; Dysthymic disorder F34.1 ; Chronic kidney disease, stage 4 (severe) N18.4 and Nausea & vomiting R11.2 [place] [id number] [place] [address] 76012- 3340 Mar, Generalized anxiety disorder F41.1 ; Dysthymic disorder F34.1 and Insomnia G47.00 [facility] [id number] [place] [address] 62186- 9825 Mar, Dehydration E86.0 ; Chronic kidney disease, stage 4 (severe ) N18.4 and Nausea & vomiting R11.2 [facility] [id number] [place] [address] 87088 -0877 Mar, Gastroenteritis K52.9 [facility] [id number] [place] [address] 52723- 1564 Mar, [facility] [id number] [place] [address] 14836- 0629 Mar, [place] [id number] [place] [address] 66910- 1630 Feb, Dysthymic disorder F34.1 and Generalized anxiety disorder F41.1 [facility] [id number] [place] [address] 65308- 5197 Jan, UTI (urinary tract infection) N39.0 ; Asthma J45.909 ; Coronary artery disease involving [place] coronary artery of [place] heart, angina presence unspecified I25.10 ; Hypertension I10 ; Hypothyroid E03.9 ; Vitamin D deficiency E55.9 ; Insomnia G47.00 ; Palpitations R00.2 ; Depressed F32.9 ; Restless leg G25.81 and Anxiety F41.9 [place] [address] 53586- 7461 Jan, Dysthymic disorder F34.1 and Generalized anxiety disorder F41.[address] 81776- 8618 Jan, [place] [address] 65215- 9111 Dec, [address] 41348- 6206 Dec, Alkalosis 276.3 ; Chronic kidney disease, 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.4 ; Hyperpotassemia 276.7 ; Secondary hyperparathyroidism, renal 588.81 ; Proteinuria 791.0 ; Unspecified vitamin D deficiency 268.9 ; Anemia in chronic kidney disease 285.21 ; Other and unspecified hyperlipidemia 272.4 ; Hypertension, essential, benign 401.1 and Chronic kidney disease (CKD), stage III (moderate) 585.3 [place] [id number] [place] [address] 64262- 5134 Dec, [place] [address] 72659- 7816 Dec, Depressive disorder, not elsewhere classified 311 and Generalized anxiety disorder 300.[address] 47802- 0980 Dec, [place] [address] 40404- 2522 08 Dec, 2014 [place] [address] 99864- 8897 Nov, Depressive disorder, not elsewhere classified 311 and Generalized anxiety disorder 300.02 [place] [id number] [place] [address] 34987- 9011 Nov, Arthritis of both knees 716.96 [place] [id number] [place] [address] 32977- 4014 Nov, PAF (paroxysmal atrial fibrillation) 427.31 ; CAD (coronary artery disease) 414.00 ; Chest pain 786.50 and Chronic kidney disease (CKD) stage G4/A1, severely decreased glomerular filtration rate (GFR) between 15-29 mL/min/1.73 square meter and albuminuria creatinine ratio less than 30 mg/g 585.4 [place] [id number] [place] [address] 35140- 7805 Oct, Coronary atherosclerosis of unspecified type of vessel, [place] or graft 414.00 ; Chronic kidney disease, 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.4 ; Hypertension 401.9 and Edema 782.3 [place] [id number] [place] [address] 34435- 6727 Oct, Depressive disorder, not elsewhere classified 311 and Generalized anxiety disorder 300.02 [place] [id number] [place] [address] 49947- 1963 Oct, Depressive disorder, not elsewhere classified 311 and Generalized anxiety disorder 300.02 [place] [id number] [place] [address] 25001- 9070 Oct, [place] [id number] [place] [address] 62570- 4560 Oct, [place] [id number] [place] [address] 08324- 8773 Sep, [place] [id number] [place] [address] 57610- 5843 Sep, Chronic kidney disease, 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.4 [place] [id number] [place] [address] 57440- 5492 Sep, [facility] [address], [place] [address]- 4094 Sep, Coronary atherosclerosis of unspecified type of vessel, [place] or graft 414.00 ; Hypertension 401.9 ; Edema 782.3 and Hypothyroidism 244.9 [facility] [id number] [place] [address] 53984- 7971 Sep, Coronary atherosclerosis of unspecified type of vessel, [place] or graft 414.00 ; Hypertension 401.9 ; Fibromyalgia 729.1 ; Edema 782.3 ; Hypothyroidism 244.9 and Anemia 285.9 [facility] [id number] [place] [address] 07167- 4590 Sep, Anxiety disorder, unspecified 300.00 and Depressive disorder , not elsewhere classified 311 [facility] [id number] [place] [address] 54161- 3277 Sep, [facility] [id number] [place] [address] 03266- 4289 August, Generalized anxiety disorder 300.02 [facility] [id number] [place] [address] 27599- 3473 August, Closed fracture of lateral malleolus 824.2 [facility] [id number] [place] [address] 69788- 4944 Jul, [facility] [id number] [place] [address] 12929- 3714 Jul, [facility] [id number] [place] [address] 71072- 1178 Jun, [facility] [id number] [place] [address] 36017- 5658 Jun, [facility] [id number] [place] [address] 24105- 8294 Jun, [facility] [address], [place] [address]- 6805 Jun, [facility] [address] [place] [address] [place] [address]- 1829 Jun, [facility] [place] [facility] [address] [id number] [place] [address]- 1592 Jun, [facility] [place] [facility] [address] [id number] [place] [address]- 3113 May, 2014 [facility] [place] [facility] [address] [id number] [place] [address]- 3009 May, 2014 [facility] [place] [facility] [address] [id number] [place] [address]- 4468 May, 2014 [facility] [place] [facility] [address] [id number] [place] [address]- 3670 May, 2014 [facility] [place] [facility] [address] [facility] [id number] [place] [address]- 5129 16 May, 2014 [facility] [place] [facility] [address] [facility] [id number] [place] [address]- 7646 16 May, 2014 [facility] [place] [facility] [address] [id number] [place] [address]- 0266 May, 2014 [facility] [place] [facility] [address] [facility] [id number] [place] [address]- 3462 May, 2014 [facility] [place] [facility] [address] [facility] [id number] [place] [address]- 0816 10 May, 2014 [facility] [place] [facility] [address] [facility] [id number] [place] [address]- 5651 May, [facility] [place] [facility] [address] [id number] [place] [address]- 1090 Apr, [facility] [place] [facility] [address] [id number] [place] [address]- 2549 Apr, [facility] [place] [facility] [address] [facility] [id number] [place] [address]- 6748 Mar, [facility] [place] [facility] [address] [facility] [id number] [place] [address]- 2123 Mar, [facility] [place] [facility] [address] [id number] [place] [address]- 2669 Mar, [facility] [place] [facility] [address] [id number] [place] [address]- 6714 Mar, [facility] [place] [facility] [address] [id number] [place] [address]- 5503 Mar, [facility] [place] [facility] [address] [id number] [place] [address]- 9851 Mar, [facility] [place] [facility] [address] [id number] [place] [address]- 3351 Mar, [facility] [place] [facility] [address] [id number] [place] [address]- 3463 Feb, [facility] [place] [facility] [address] [id number] [place] [address]- 7429 Feb, [facility] [place] [facility] [address] [id number] [place] [address]- 1723 Feb, [facility] [place] [facility] [address] [id number] [place] [address]- 8180 Jan, [facility] [place] [facility] [address] [id number] [place] [address]- 7347 Jan, [facility] [place] [facility] [address] [id number], [place] [address]- 2527 Jan, [facility] [place] [facility] [address] [id number], [place] [address]- 8951 20 Jan, 2014 [facility] [place] [facility] [address] [id number] [place] [address]- 6833 Jan, [facility] [place] [facility] [address] [id number] [place] [address]- 0504 Jan, [facility] [place] [facility] [address] [id number] [place] [address]- 2308 Jan, [facility] [place] [facility] [address] [id number] [place] [address]- 4503 Jan, [facility] [place] [facility] [address] [id number] [place] [address]- 7380 Jan, [facility] [place] [facility] [address] [id number] [place] [address]- 5239 Jan, [facility] [place] [facility] [address] [id number] [place] [address]- 2003 Nov, [facility] [place] [facility] [address] [id number] [place] [address]- 6237 Nov, [facility] [place] [facility] [address] [id number] [place] [address]- 3073 Nov, [facility] [place] [facility] [address] [id number] [place] [address]- 3137 Oct, [facility] [place] [facility] [address] [id number] [place] [address]- 5706 Oct, [facility] [place] [facility] [address] [id number] [place] [address]- 2007 Oct, [facility] [place] [facility] [address] [id number] [place] [address]- 5989 Oct, [facility] [place] [facility] [address] [id number] [place] [address]- 1480 Oct, [facility] [place] [facility] [address] [id number] [place] [address]- 5457 Oct, [facility] [place] [facility] [address] [id number] [place] [address]- 2725 Oct, [facility] [place] [facility] [address] [id number] [place] [address]- 6965 Oct, [facility] [place] [facility] [address] [id number] [place] [address]- 0453 Oct, [facility] [place] [facility] [address] [id number] [place] [address]- 9636 Sep, [facility] [place] [facility] [address] [id number] [place] [address]- 0135 Sep, [facility] [place] [facility] [address] [id number] [place] [address]- 3396 Sep, [facility] [place] [facility] [address] [id number] [place] [address]- 1663 Sep, [facility] [place] [facility] [address] [id number] [place] [address]- 2434 Sep, [facility] [place] [facility] [address] [id number] [place] [address]- 4285 Sep, [facility] [place] [facility] [address] [id number] [place] [address]- 7575 Sep, [facility] [place] [facility] [address] [id number] [place] [address]- 0859 Sep, [facility] [place] [facility] [address] [id number] [place] [address]- 8240 Sep, [facility] [place] [facility] [address] [id number] [place] [address]- 2481 August, [facility] [place] [facility] [address] [id number] [place] [address]- 0369 August, [facility] [place] [facility] [address] [id number] [place] [address]- 9176 August, [facility] [place] [facility] [address] [id number], [place] [address]- 7298 August, [facility] [place] [facility] [address] [id number] [place] [address]- 1025 August, [facility] [place] [facility] [address] [id number] [place] [address]- 4091 August, [facility] [place] [facility] [address] [id number] [place] [address]- 4075 Jul, [facility] [place] [facility] [address] [id number] [place] [address]- 3619 Jul, [facility] [address] [id number] [place] [address]- 0001 Jul, [facility] [place] [facility] [address] [id number] [place] [address]- 9360 08 Jul, 2013 [facility] [place] [facility] [address] [facility] [id number] [place] [address]- 0793 Jul, [facility] [place] [facility] [address] [id number] [place] [address]- 8771 Jul, [facility] [place] [facility] [address] [id number] [place] [address]- 6200 Jun, [facility] [place] [facility] [address] [id number] [place] [address]- 9023 Jun, [facility] [place] [facility] [id number] [address]- 4447 May, [facility] [place] [facility] [address] [facility] [id number] [place] [address]- 8247 May, [facility] [place] [facility] [address] [facility] [id number] [place] [address]- 1568 May, [facility] [place] [facility] [address] [facility] [id number] [place] [address]- 2689 May, [facility] [place] [facility] [address] [facility] [id number] [place] [address]- 0443 Apr, [facility] [place] [facility] [address] [facility] [id number] [place] [address]- 8848 Apr, [facility] [place] [facility] [address] [id number] [place] [address]- 0992 Mar, [facility] [place] [facility] [address] [facility] [id number] [place] [address]- 1628 Mar, [facility] [place] [facility] [address] [facility] [id number] [place] [address]- 6519 17 Mar, 2013 [facility] [place] [facility] [address] [id number] [place] [address]- 4559 Mar, [facility] [place] [facility] [address] [id number] [place] [address]- 9783 Mar, [facility] [place] [facility] [address] [id number] [place] [address]- 2976 Mar, [facility] [place] [facility] [address] [id number] [place] [address]- 3782 Feb, [facility] [place] [facility] [address] [id number] [place] [address]- 8821 Feb, [facility] [place] [facility] [address] [id number] [place] [address]- 7802 Feb, [facility] [place] [facility] [address] [id number] [place] [address]- 9766 Feb, [facility] [place] [facility] [address] [id number] [place] [address]- 4181 Feb, [facility] [place] [facility] [address] [id number] [place] [address]- 8720 Feb, [facility] [place] [facility] [address] [id number] [place] [address]- 1744 Jan, [facility] [place] [facility] [address] [id number] [place] [address]- 6898 Jan, [facility] [place] [facility] [address] [id number] [place] [address]- 0513 Jan, [facility] [place] [facility] [address] [id number] [place] [address]- 6821 Jan, [facility] [place] [facility] [address] [id number] [place] [address]- 7814 08 Jan, 2013 [facility] [place] [facility] [address] [id number] [place] [address]- 1394 Jan, [facility] [place] [facility] [address] [id number] [place] [address]- 7736 Dec, [facility] [place] [facility] [address] [id number] [place] [address]- 0774 Dec, [facility] [place] [facility] [address] [id number] [place] [address]- 7656 Nov, [facility] [place] [facility] [address] [id number] [place] [address]- 6924 Nov, [facility] [place] [facility] [address] [id number] [place] [address]- 9029 Oct, [facility] [place] [facility] [address] [id number] [place] [address] Oct, [facility] [place] [facility] [address] [id number] [place] [address] Oct, [facility] [place] [facility] [address] [id number] [place] [address] Oct, [facility] [place] [facility] [address] [id number] [place] [address] Oct, [facility] [place] [facility] [address] [id number] [place] [address] Oct, [facility] [place] [facility] [address] [id number] [place] [address] Sep, [facility] [place] [facility] [address] [id number] [place] [address] Sep, [facility] [place] [facility] [address] [id number] [place] [address] Sep, [facility] [place] [facility] [address] [id number] [place] [address] Sep, [facility] [place] [facility] [address] [id number] [place] [address] August, [facility] [place] [facility] [address] [id number] [place] [address] August, [facility] [place] [facility] [address] [id number] [place] [address] August, [facility] [address] [id number] [place] [address] August, [facility] [address] [id number] [place] [address] August, [facility] [address] [id number] [place] [address] Jul, [facility] [address] [id number] [place] [address] Jul, [facility] [address] [id number] [place] [address] Jul, [facility] [address] [id number] [place] [address] Jul, [facility] [address] [id number] [place] [address] Jul, [facility] [address] [id number] [place] [address] Jul, [facility] [address] [id number] [place] [address] Jul, [facility] [address] [id number] [place] [address] Jul, [facility] [address] [id number] [place] [address] Jul, [facility] [address] [id number] [place] [address] Jul, [facility] [address] [facility] [id number][place] [id number] Jun, [facility] [address] [facility] [id number] [place] [address] Jun, [facility] [address] [facility] [id number], [place] [address] Jun, [facility] [address] [id number] [place] [address] Jun, [facility] [address] [id number] [place] [address] Jun, [facility] [place] [facility] [address] [id number] [place] [address] May, [facility] [place] [facility] [address] [id number] [place] [address] May, [facility] [address] [id number] [place] [address] May, [facility] [address] [id number] [place] [address] Apr, [facility] [address] [id number] [place] [address] Apr, [facility] [address] [id number] [place] [address] Apr, [facility] [address] [id number] [place] [address] Apr, [facility] [address] [id number] [place] [address] Apr, [facility] [address] [id number] [place] [address] Apr, [facility] [address] [id number] [place] [address] Mar, [facility] [place] [facility] [address] [id number] [place] [address]79 Mar, [facility] [place] [facility] [address] [id number] [place] [address] Mar, [facility] [place] [facility] [address] [id number] [place] [address] Mar, [facility] [place] [facility] [address] [id number], [place] [address] Feb, [facility] [place] [facility] [address] [id number] [place] [address] Feb, [facility] [place] [facility] [address] [id number] [place] [address] Feb, [facility] [place] [facility] [address] [id number] [place] [address] Feb, [facility] [place] [facility] [address] [id number] [place] [address] Feb, [facility] [facility] [address] [id number] [place] [address] Feb, [facility] [place] [facility] [address] [id number] [place] [address] Feb, [facility] [place] [facility] [address] [id number] [place] [address] Feb, [facility] [place] [facility] [address] [id number] [place] [address] Feb, [facility] [place] [facility] [address] [id number], [place] [address] Feb, [facility] [address] [id number] [place] [address] Feb, [facility] [address] [id number], [place] [address] Feb, [facility] [address] [id number], [place] [address] Feb, [facility] [address] [id number], [place] [address] Feb, [facility] [address] [id number], [place] [address] Feb, [facility] [address] [id number] [place] [address] Feb, [facility] [address] [id number] [place] [address] 31 Jan, 2011 [facility] [facility] [address] [id number] [place] [address] 4[address] 31 Jan, 2011 [facility] [address] [id number] [place] [address]- 2434 31 Jan, 2011 [facility] [address] [id number] [place] [address] 7304 31 Jan, 2011 [facility] [address] [id number] [place] [address] 8441 30 Jan, 2011 [facility] [address] [id number] [place] [address] 6[address] Jan, 2011 [facility] [address] [id number] [place] [address]- 6282 25 Jan, 2011 [facility] [address] [id number] [place] [address]- 2027 16 Jan, 2012 [facility] [address] [id number] [place] [address]- 8391 16 Jan, 2012 [facility] [address] [id number] [place] [address]- 0127 15 Jan, 2012 [facility] [address] [id number] [place] [address]- 2461 15 Jan, 2012 [facility] [address] [id number] [place] [address] 0160 Jan, [facility] [address] [id number] [place] [address]- 7570 26 Dec, 2011 [facility] [address] [id number] [place] [address]- 3421 26 Dec, 2011 [facility] [address] [id number] [place] [address]- 1059 24 Sep, 2011 [facility] [address] [id number] [place] [address] 8591 23 Dec, 2011 [facility] [address] [id number] [place] [address]- 2167 22 Sep, 2011 [facility] [address] [id number] [place] [address]- 1786 21 Dec, 2011 [facility] [address] [id number] [place] [address] 9236 20 Sep, 2011 [facility] [address] [id number] [place] [address] 2546 20 Sep, 2011 [facility] [address] [id number] [place] [address] 7151 07 Sep, 2011 [facility] [address] [id number] [place] [address] 7654 06 Sep, 2011 [facility] [address] [id number] [place] [address]- 2009 06 Dec, 2011 [facility] [address] [id number] [place] [address]- 9013 05 Dec, 2011 [facility] [address] [id number] [place] [address] 8261 23 Nov, 2011 [facility] [address] [id number] [place] [address]- 9527 17 Nov, 2011 [facility] [address] [id number] [place] [address]- 5694 13 Nov, 2011 [facility] [address] [id number] [place] [address] 8703 10 Nov, 2011 [facility] [address] [id number] [place] [address]- 2660 08 Nov, 2011 [facility] [address] [id number] [place] [address]- 8372 07 Nov, 2011 [facility] [address] [id number] [place] [address]- 2925 Nov, [facility] [address] [id number] [place] [address] 0044 Nov, [facility] [address] [id number] [place] [address] 4325 Oct, [facility] [address] [id number] [place] [address]- 9736 Oct, [facility] [address] [id number] [place] [address]- 8005 Oct, [facility] [address] [id number] [place] [address]- 7261 Oct, [facility] [address] [id number] [place] [address]- 6679 Oct, [facility] [address] [id number] [place] [address]- 5054 Oct, [facility] [address] [id number] [place] [address]- 7417 Oct, [facility] [address] [id number] [place] [address] 7944 Sep, [facility] [address] [id number] [place] [address]- 0080 Sep, [facility] [address] [id number] [place] [address] 8814 August, [facility] [address] [id number] [place] [address] 3902 August, [facility] [address] [id number] [place] [address] August, [facility] [address] [id number] [place] [address] 0613 August, [facility] [address] [id number] [place] [address] 4215 Jul, [facility] [address] [id number] [place] [address]- 2416 Jul, [facility] [address] [id number] [place] [address]- 6347 06 Jul, 2011 [facility] [address] [id number] [place] [address]- 5707 Jul, [facility] [address] [id number] [place] [address]- 5986 Jul, [facility] [address] [id number] [place] [address]- 0780 Jul, [facility] [address] [id number] [place] [address]- 3596 Jul, [facility] [address] [id number] [place] [address]- 3224 Jul, [facility] [address] [id number] [place] [address]- 3861 Jul, [facility] [address] [id number] [place] [address]- 5226 Jun, [facility] [address] [id number] [place] [address]- 0384 Jun, [facility] [address] [id number] [place] [address]- 4675 15 Jun, 2011 [facility] [address] [id number] [place] [address]- 8898 14 Jun, 2011 [facility] [address] [id number] [place] [address]- 8434 Jun, [facility] [address] [id number] [place] [address]- 9289 Jun, [facility] [address] [id number] [place] [address] Jun, [facility] [address] [id number] [place] [address]- 6802 May, [facility] [address] [id number] [place] [address]- 4177 May, [facility] [address] [id number] [place] [address]- 0616 May, [facility] [address] [id number] [place] [address]- 9616 May, [facility] [address] [id number] [place] [address]- 8296 May, [facility] [address] [id number] [place] [address]- 3546 Apr, [facility] [address] [id number] [place] [address]- 3654 Apr, [facility] [address] [id number] [place] [address]- 0407 Apr, [facility] [address] [id number] [place] [address]- 6210 Apr, [facility] [address] [id number] [place] [address]- 8035 Apr, [facility] [address] [id number] [place] [address]- 5373 Mar, [facility] [address] [id number] [place] [address]- 1797 Mar, [facility] [address] [id number] [place] [address]- 0293 Mar, [facility] [address] [id number] [place] [address]- 2549 Mar, [facility] [address] [id number] [place] [address]- 8054 Mar, [facility] [address] [id number] [place] [address]- 8159 Mar, [facility] [address] [id number] [place] [address]- 2915 Mar, [facility] [address] [id number] [place] [address]- 1462 11 Feb, 2011 [facility] [address] [id number] [place] [address]- 5112 10 Feb, 2011 [facility] [address] [id number] [place] [address]- 6656 08 Feb, 2011 [facility] [address] [id number] [place] [address]- 2865 Feb, [facility] [address] [id number] [place] [address]- 8006 Jan, [facility] [address] [id number] [place] [address]- 3663 Jan, [facility] [address] [id number] [place] [address]- 8572 Jan, [facility] [address] [id number] [place] [address]- 6248 Jan, [facility] [address] [id number] [place] [address]- 5222 Nov, [facility] [address] [id number] [place] [address]- 2999 Mar, [facility] [address] [id number] [place] [address]- 3542 Mar, [facility] [address] [id number] [place] [address]- 4156 Mar, [facility] [address] [id number] [place] [address]- 9255 Mar, [facility] [address] [id number] [place] [address]- 1876 Mar, [facility] [address] [id number] [place] [address]- 2156 Mar, [facility] [address] [id number] [place] [address]- 4491 Feb, [facility] [address] [facility] [id number] [place] [address]- 3238 Feb, [facility] [address] [facility] [id number], [place] [address]- 3816 Jan, [facility] [address] [facility] [id number], [place] [address]- 3521 Jan, [facility] [address] [facility] [id number], [place] [address]- 3516 Jan, IMMUNIZATIONS No Known Immunizations SOCIAL HISTORY [...] 2020 & 2007 Surgical History Bladder surgery [facility] 03/2016 Surgical History Neurotransmitter placed 10/2017 Hospitalization History Surgeries Only Hospitalization History 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
--- OUTSIDE RECORDS SUMMARY | 2018-05-29 07:51 | XMS REPORT ---
Author Author ZHANE BOSCH [facility] Address [address] [place] [address] Care Team Providers Care Principal Law Clerk Name Role Phone ZHANE BOSCH Unavailable PROBLEMS Type Condition ICD9-CM Code AFS56-ML Code Onset Dates Condition Status SNOMED Code Problem Low back pain M54.5 Active 018589828 Problem Abnormal chest CT R93.8 Active 036670439 Problem Dysthymic disorder F34.1 Active 25038300 Problem Generalized anxiety disorder F41.1 Active 51635271 Problem Coronary artery disease involving [place] coronary artery of [place] heart, angina presence unspecified I25.10 Active 0843866948778 Problem Restless leg G25.81 Active 15570196 Problem Hypothyroid E03.9 Active 58046049 Problem Insomnia G47.00 Active 214259002 Problem Asthma J45.909 Active 218655699 Problem Chronic kidney disease, unspecified N18.9 Active 252297297 Problem Palpitations R00.2 Active 28677401 Problem Anemia in chronic kidney disease D63.1 Active 601193182942066 Problem Depressed F32.9 Active 92591099 Problem Bipolar disorder, current episode manic without psychotic features F31.10 Active 534461675 Problem Primary osteoarthritis of left knee M17.12 Active 166782741 Problem Degenerative tear of medial meniscus of left knee M23.204 Active 392126543 Problem Chronic pain syndrome G89.4 Active 430258534 Problem Restless leg syndrome G25.81 Active 99192567 Problem History of colon polyps Z86.010 Active 784120414 Problem Functional 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 Active 23599773 Problem Chronic kidney disease, stage 4 (severe) N18.4 Active 452600589 Problem Stage 3 chronic kidney disease N18.3 Active 042620229 Problem Mood disorder F39 Active 00977261 Problem Seasonal allergic rhinitis due to pollen J30.1 Active 74609475 Problem Body mass index (BMI) of 40.0-44.9 in adult Z68.41 Active 909206822 Problem Other seasonal allergic rhinitis J30.2 Active 291659449 Problem Long-term use of high-risk medication Z79.899 Active 690209802 Problem Hypokalemia E87.6 Active 87152762 Problem Asthma with acute exacerbation in adult J45.901 Active 536662079 Problem History of anemia Z86.2 Active 941262022 Problem Vitamin D deficiency E55.9 Active 98632943 Problem Essential (primary) hypertension I10 Active 84024084 Problem Fibromyalgia M79.7 Active 813988223 Problem Mixed stress and urge urinary incontinence N39.46 Active 882532673 ALLERGIES No Known Allergies ENCOUNTERS Encounter Location Date Diagnosis [place] [address] [address] Jan, [facility] [address] [address]- [address] Jan, [place] [address] [address]- [address] Dec, [facility] [address] 35999- 5124 Dec, Fibromyalgia M79.7 [facility] [address] 60204- 6153 Nov, [facility] [address] 65339- 4948 Nov, [facility] [address] 14951- 8400 Nov, [facility] [address] 79685- 5854 Nov, Fibromyalgia M79.7 ; Vision changes H53.9 ; Chest wall pain R07.89 and Chronic pain syndrome G89.4 [facility] [address] 43586- 4384 Nov, [facility] [address] 55673- 5672 Nov, Rash of hands R21 [facility] [address] [address] Nov, Generalized anxiety disorder F41.1 and Major depressive disorder, recurrent episode with anxious distress F33.9 [facility] [address], [place] [address] 5316 Nov, Fibromyalgia M79.7 [facility] [address] [place] [id number] [place] [address] 75218- 3646 Nov, Complicated UTI (urinary tract infection) N39.0 [facility] [id number] [place] [address] 95115- 1869 Oct, [place] [id number] [place] [address] 78390- 9426 Oct, Generalized anxiety disorder F41.1 and Major depressive disorder, recurrent episode with anxious distress F33.9 [place] [id number] [place] [address] 17049- 3959 Oct, [facility] [address] [place] [id number] [place] [address] 62594- 5916 Oct, Fibromyalgia M79.7 [facility] [id number] [place] [address] 33004- 1110 Sep, Restless leg syndrome G25.81 and Restless leg G25.81 [place] [id number] [place] [address] 11239- 2066 Sep, [place] [address], [place] [address] 5510 Sep, Seasonal allergic rhinitis due to pollen J30.1 ; Screening for breast cancer Z12.31 ; Chest pain at rest R07.9 ; Restless leg syndrome G25.81 ; Essential (primary) hypertension I10 and Depressed F32.9 [facility] [address], [place] [address] August, Fibromyalgia M79.7 [facility] [address] [place] [id number] [place] [address] 51402- 0860 August, [facility] [address] [place] [id number] [place] [address] 61676- 3755 August, [facility] [address] [place] [id number] [place] [address] 13419- 3211 August, Abnormal chest CT R93.8 [place] [address] 58660- 2399 August, Generalized anxiety disorder F41.1 and Major depressive disorder, recurrent episode with anxious distress F33.9 [place] [address] 22059- 6947 August, Ab[address] chest [address] R93.8 [place] [address] [place] [id number] [place] [address] 55433- 2117 Jul, [place] [address] 59645- 2793 Jul, Chronic kidney disease, stage 4 (severe) N18.4 [place] [address] [place] [id number] [place] [address] 81464- 9329 Jul, [place] [address] [place] [id number] [place] [address] 06305- 9434 Jul, Restless leg G25.81 ; Mixed stress and urge urinary incontinence N39.46 and Fibromyalgia M79.7 [place] [address] [place] [id number] [place] [address] 64849- 8919 Jul, Chronic kidney disease, stage 4 (severe) N18.4 [place] [address] [place] [id number] [place] [address] 75968- 3393 Jun, Orthostatic hypotension I95.1 ; Chronic kidney disease, stage 4 (severe) N18.4 ; Chest wall discomfort R07.89 and Body mass index (BMI) of 40.0-44.9 in adult Z68.41 [place] [address] [place] [id number] [place] [address] 27507- 4068 Jun, [facility] [address] [place] [id number] [place] [address] 06469- 0129 Jun, Orthostatic hypotension I95.1 [facility] [address] [place] [id number] [place] [address] 15924- 0217 Jun, [facility] [address] [place] [id number] [place] [address] 17873 -9274 Jun, Orthostatic hypotension I95.1 ; Dysuria R30.0 and Acute cystitis without hematuria N30.00 [facility] [address] [place] [id number] [place] [address] 48076- 3282 Jun, [facility] [address] [place] [id number] [place] [address] 47868- 4316 Jun, Chronic kidney disease, stage 4 (severe) N18.4 [facility] [address] [place] [id number] [place] [address] 58373- 1474 Jun, Fibromyalgia M79.7 [facility] [address] [place] [id number] [place] [address] 09857- 2462 Jun, [facility] [address] [place] [id number] [place] [address] 39218- 8484 Jun, [facility] [address] [place] [id number] [place] [address] 65032- [address] May, [address] R93.8 and Stage 3 chronic kidney disease N18.3 [facility] [id number] [place] [address] 20919- 6514 May, Chronic kidney disease, stage 4 (severe) N18.4 [facility] [address] [place] [id number] [place] [address] 86732- 0066 May, Chronic kidney disease, stage 4 (severe) N18.4 [facility] [address] [place] [id number] [place] [address] 11726- [address] May, [address] R93.8 [facility] [address], [place] [address]- 9484 May, [facility] [id number] [place] [address] 04693- 8104 May, [facility] [address], [place] [address]- 7033 May, Generalized anxiety disorder F41.1 and Major depressive disorder, recurrent episode with anxious distress F33.9 [facility] [address], [place] [address]- 2329 May, Mood disorder F39 [facility] [id number] [place] [address] 22164- 3338 Apr, [facility] [id number] [place] [address] 61373- 7109 Apr, Infected skin lesion L08.9 and Muscle strain of right shoulder region, initial encounter S46.911A [facility] [id number] [place] [address] 08621- 2343 Apr, Generalized anxiety disorder F41.1 and Major depressive disorder, recurrent episode with anxious distress F33.9 [facility] [address], [place] [address]- 4474 Apr, [facility] [address], [place] [address]- 9076 Apr, Recent urinary tract infection Z87.440 and Hypothyroid E03.9 [facility] [address] [place] [id number] [address]- 8288 Apr, Generalized anxiety disorder F41.1 and Major depressive disorder, recurrent episode with anxious distress F33.9 [facility] [address], [place] [address]- 1000 Apr, Recent urinary tract infection Z87.440 [facility] [address], [place] [address]- 5168 Mar, [facility] [address], [place] [address] Mar, Dysuria R30.0 ; Acute cystitis without hematuria N30.00 and BMI 40.0-44.9, adult Z68.41 [facility] [address], [place] [address]- 2581 Mar, [facility] [address] [place] [id number] [place] [address] 27970- 7778 Mar, [facility] [address] [place] [id number] [place] [address] 58990- 7355 Mar, Generalized anxiety disorder F41.1 and Major depressive disorder, recurrent episode with anxious distress F33.9 [place] [address] [place] [id number] [place] [address] 87715- 9459 Feb, Conjunctivitis, bacterial H10.9 [place] [address] [place] [id number] [place] [address] 27577- 0156 Feb, [facility] [address] [place] [id number] [place] [address] 59465 -0010 Feb, Conjunctivitis, bacterial H10.9 [facility] [address] [place] [id number] [place] [address] 56909- 2352 Feb, [facility] [id number] [place] [address] 51985 -0206 Feb, Dysuria R30.0 ; Acute cystitis N30.00 and BMI 40.0-44.9, adult Z68.41 [place] [address] [place] [id number] [place] [address] 49478- 2890 Feb, [place] [address] [place] [id number] [place] [address] 81521- 7493 Feb, Generalized anxiety disorder F41.1 and Major depressive disorder, recurrent episode with anxious distress F33.9 [place] [address] [place] [id number] [place] [address] 11088- 0485 Feb, Mood disorder F39 and BMI 40.0-44.9, adult Z68.41 [place] [address] [place] [id number] [place] [address] 15794- 3020 Jan, [facility] [address] [place] [id number] [place] [address] 05357- 8609 Jan, [place] [address] 54596- 9227 Jan, Hypothyroid E03.9 [place] [address] [place] [id number] [place] [address] 80246- 8788 Jan, [place] [address] 66829- 9444 Jan, Chronic kidney disease, unspecified N18.9 ; Hypokalemia E87.6 ; Essential (primary) hypertension I10 ; Fibromyalgia M79.7 ; Coronary artery disease involving [place] coronary artery of [place] heart, angina presence unspecified I25.10 ; Hypothyroid E03.9 and Encounter for immunization Z23 [place] [address] [place] [id number] [place] [address] 39527- 3915 Jan, Hypothyroid E03.9 [place] [address] [place] [id number] [place] [address] 11400- 2916 Jan, [place] [address] [place] [id number] [place] [address] 65507- 5997 Dec, Vitamin D deficiency E55.9 [place] [address] [place] [id number] [place] [address] 05445- 6591 Dec, Primary osteoarthritis of left knee M17.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 [place] [address] [place] [id number] [place] [address] 66944- 8963 Dec, Fibromyalgia M79.7 [facility] [address] [place] [id number] [place] [address] 77286- 2922 Dec, Mood disorder F39 [facility] [address], [place] [address]- 8555 13 Dec, 2016 [facility] [id number] [place] [address] 42222- 6685 13 Dec, 2016 Generalized anxiety disorder F41.1 and Major depressive disorder, recurrent episode with anxious distress F33.9 [facility] [id number] [place] [address] 10104- 8389 11 Dec, 2016 [facility] [address] [place] [id number] [place] [address] 69017- 6271 08 Dec, 2016 Streptococcal meningitis G00.2 [facility] [address] [place] [id number] [place] [address] 63941- 1936 07 Dec, 2016 Streptococcal meningitis G00.2 [facility] [id number] [place] [address] 97206- 1259 07 Dec, 2016 [facility] [address] [place] [id number] [place] [address] 29358- 8396 06 Dec, 2016 Streptococcal meningitis G00.2 [facility] [id number] [place] [address] 53709- 2020 06 Dec, 2016 [facility] [id number] [place] [address] 12564- 6612 06 Dec, 2016 Major depressive disorder, recurrent episode with anxious distress F33.9 [facility] [id number] [place] [address] 23307- 0925 Nov, Fever, unspecified fever cause R50.9 [facility] [address], [place] [address]- 8240 Nov, [facility] [address] [place] [id number] [place] [address] 79099- 6443 16 Nov, 2016 Hypothyroid E03.9 [facility] [address], [place] [address]- 8521 Nov, Generalized anxiety disorder F41.1 and Major depressive disorder, recurrent episode with anxious distress F33.9 [facility] [address], [place] [address]- 2336 Nov, [facility] [address] [place] [id number] [place] [address] [id number] Oct, Dental examination Z01.20 [facility] [address] [place] [id number] [place] [address] 48631- 9622 Oct, Generalized anxiety disorder F41.1 and Major depressive disorder, recurrent episode with anxious distress F33.9 [facility] [address] [place] [id number] [place] [address] 21895- 0466 Oct, Chronic kidney disease, stage 4 (severe) N18.4 [facility] [address] [place] [id number] [place] [address] 06399- 4437 Oct, [facility] [address] [place] [id number] [place] [address] 35702- 5285 Oct, Fibromyalgia M79.7 [facility] [address] [place] [id number] [place] [address] 14318- 8817 Oct, [facility] [address] [place] [id number] [place] [address] 06144- 9876 Oct, Generalized anxiety disorder F41.1 ; Major depressive disorder, recurrent episode with anxious distress F33.9 and Bipolar disorder, current episode manic without psychotic features F31.10 [facility] [id number] [place] [address] 64352- 7114 Sep, [facility] [id number] [place] [address] 39211- 9307 Sep, [facility] [address] [place] [id number] [place] [address] 17783- 4155 Sep, Vitamin D deficiency E55.9 [facility] [id number] [place] [address] 75870- 7027 14 Sep, 2016 Vitamin D deficiency E55.9 [facility] [address] [place] [id number] [place] [address] 02439- 7777 Sep, [place] [address] [place] [address] 12332- 9241 Sep, Chronic kidney disease, stage 4 (severe) N18.4 ; Hypothyroid E03.9 ; Restless leg G25.81 ; Fibromyalgia M79.7 ; Essential ( primary) hypertension I10 ; Vitamin D deficiency E55.9 ; Dyspepsia R10.13 ; Anemia in chronic kidney disease D63.1 ; Chronic kidney disease, unspecified N18.9 ; Coronary artery disease involving [place] coronary artery of [place] heart , angina presence unspecified I25.10 ; Screening breast examination Z12.39 and Low back pain M54.5 [place] [address] [place] [id number] [place] [address] 67675- 6927 August, Generalized anxiety disorder F41.1 and Major depressive disorder, recurrent episode with anxious distress F33.9 [place] [address] 34265- 6612 August, Generalized anxiety disorder F41.1 and Major depressive disorder, recurrent episode with anxious distress F33.9 [place] [address] [place] [id number] [place] [address] 42342- 8394 August, Fibromyalgia M79.7 [place] [address] [place] [id number] [place] [address] 29158- 9858 Jul, Generalized anxiety disorder F41.1 and Major depressive disorder, recurrent episode with anxious distress F33.9 [place] [address] [place] [id number] [place] [address] 73683- 4193 Jul, Fibromyalgia M79.7 [place] [address] [place] [id number] [place] [address] 36760- 7190 Jul, Generalized anxiety disorder F41.1 [place] [address] [place] [id number] [place] [address] 90125- 7848 May, [place] [address] [place] [id number] [place] [address] 68465- 0350 May, Hypothyroid E03.9 [place] [address] [place] [address] 19979- 5965 08 May, 2016 Chronic kidney disease, stage 4 (severe) N18.4 ; Hypothyroid E03.9 ; Restless leg G25.81 ; Fibromyalgia M79.7 ; Essential ( primary) hypertension I10 ; Vitamin D deficiency E55.9 ; Dyspepsia R10.13 ; Acute non-recurrent maxillary sinusitis J01.00 ; Anemia in chronic kidney disease D63.1 ; Chronic kidney disease, unspecified N18.9 and Coronary artery disease involving [place] coronary artery of [place] heart, angina presence unspecified I25.10 [place] [address] [place] [id number] [place] [address] 59855- 6876 May, Vitamin D deficiency, unspecified E55.9 [place] [address] [place] [id number] [place] [address] 71420- 6875 May, Generalized anxiety disorder F41.1 and Major depressive disorder, recurrent episode with anxious distress F33.9 [place] [address] [place] [id number] [place] [address] 68187- 0206 Apr, Pain in right knee M25.561 and Pain in left knee M25.562 [place] [address] [place] [id number] [place] [address] 48728- 5238 Apr, [place] [address] [place] [id number] [place] [address] 02500- 7088 Apr, [place] [address] [place] [id number] [place] [address] 82015- 3769 Apr, [place] [address] [place] [id number] [place] [address] 98983- 0184 Mar, Generalized anxiety disorder F41.1 and Major depressive disorder, recurrent episode with anxious distress F33.9 [place] [address] [place] [id number] [place] [address] 94910- 7654 Mar, Generalized anxiety disorder F41.1 and Major depressive disorder, recurrent episode with anxious distress F33.9 [place] [address] [id number] [place] [address] 31349- 0917 Mar, [facility] [address] 98244- 6729 Mar, [facility] [id number] [place] [address] 59755- 7407 Mar, [facility] [address] 07740- 1254 Mar, Asthma J45.909 and Fibromyalgia M79.7 [place] [address] 52705- 4540 Mar, Chronic kidney disease, stage 4 (severe) N18.4 ; Vitamin D deficiency E55.9 and Essential (primary) hypertension I10 [place] [address] 99347- 7516 Feb, [place] [address] 37719- 0288 Feb, Dysuria R30.0 ; Mixed stress and urge urinary incontinence N39.46 ; Fibromyalgia M79.7 and Chronic kidney disease, stage IV (severe) N18.4 [place] [id number] [place] [address] 98066- 2915 Feb, Chronic kidney disease, stage 4 (severe) N18.4 [place] [id number] [place] [address] 54033- 7983 Feb, Chronic kidney disease, stage 4 (severe) N18.4 [place] [address] [id number] [place] [address] 26710- 6683 Feb, [place] [address] 88441- 3387 Feb, Vitamin D deficiency, unspecified E55.9 [place] [id number] [place] [address] 11454- 2813 Jan, [place] [id number] [place] [address] 06279- 1178 Jan, [facility] [id number] [place] [address] 67843- 1384 Dec, [facility] [id number] [place] [address] 07268- 3752 Dec, Chronic kidney disease, stage 4 (severe) N18.4 [facility] [id number] [place] [address] 56277- 0368 Dec, Dysthymic disorder F34.1 and Generalized anxiety disorder F41.1 [place] [id number] [place] [address] 11228- 0416 Dec, [facility] [id number] [place] [address] [id number] [phone] Dec, [facility] [id number] [place] [address] 38729- 5728 Dec, Dysthymic disorder F34.1 and Generalized anxiety disorder F41.1 [facility] [id number] [place] [address] 72[address]- [id number] Dec, Dysuria R30.0 ; Chronic kidney disease, stage 4 (severe) N18.4 ; Hypertension I10 ; Dyspepsia R10.13 ; Yeast dermatitis B37.2 ; Palpitations R00.2 ; Hypothyroid E03.9 ; Functional 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 and Other seasonal allergic rhinitis J30.2 [facility] [id number] [place] [phone] Dec, [facility] [id number] [place] [phone] Nov, Dysuria R30.0 and Stress incontinence N39.3 [facility] [id number] [place] [address] [id number]- [id number] Nov, [facility] [id number] [place] [address] [id number]- [phone] Nov, [facility] [id number] [place] [address] 42179- 8598 Nov, Osteoarthritis of knees, bilateral M17.0 [facility] [address] [address]- [address]64 Nov, Dysthymic disorder F34.1 and Generalized anxiety disorder F41.1 [place] [address] [address]- [address] Nov, [place] [facility] [address] [address]- 978[address] Nov, [place] [address] [address]- [address] Nov, Urgency of urination R39.15 [place] [address] [address]- [address]12 Nov, [facility] [facility] [address] 58211- 0948 Nov, Chronic kidney disease, stage 4 (severe) N18.4 [facility] [address] 90[address]- 8929 Oct, Hypertension I10 ; Coronary artery disease involving [place] coronary artery of [place] heart, angina presence unspecified I25.10 ; Palpitations R00.2 ; Hypothyroid E03.9 ; Right foot pain M79.671 ; Functional 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 and Other seasonal allergic rhinitis J30.2 [facility] [id number] [place] [address] 70887- 8162 Oct, Dysthymic disorder F34.1 and Generalized anxiety disorder F41.1 [facility] [id number] [place] [address] 50000- 9094 Sep, [facility] [id number] [place] [address] 86922- 0378 Sep, [facility] [address] 09876- 1935 Sep, [facility] [id number] [place] [address] 29722- 0151 Sep, [facility] [id number] [place] [address] 03613- 4455 Sep, [facility] [id number] [place] [address] 95615- 8188 Sep, Dysthymic disorder F34.1 and Generalized anxiety disorder F41.1 [place] [id number] [place] [address] 89766- 0913 16 Sep, 2015 Asthma with acute exacerbation in adult J45.901 ; Dysuria R30.0 ; Chronic kidney disease, stage 4 (severe) N18.4 and History of anemia Z86.2 [place] [id number] [place] [address] 77523- 8425 Sep, Generalized anxiety disorder F41.1 and Dysthymic disorder F34.1 [facility] [id number] [place] [address] 96251- 3160 August, Screening breast examination Z12.39 and Acute recurrent maxillary sinusitis J01.01 [place] [id number] [place] [address] 16193- 4935 August, Osteoarthritis of knees, bilateral M17.0 [place] [id number] [place] [address] 12613- 5840 August, Chronic kidney disease, stage 4 (severe) N18.4 ; Acute non- recurrent maxillary sinusitis J01.00 ; Urinary problem R39.89 ; Bowel habit changes R19.4 ; Functional 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 and History of colon polyps Z86.010 [facility] [id number] [place] [address] 19512- 9085 Jul, Dysthymic disorder F34.1 and Generalized anxiety disorder F41.1 [place] [id number] [place] [address] 98430- 8770 Jul, [facility] [address] [address] 3381 Jul, Dysthymic disorder F34.1 ; Generalized anxiety disorder F41.1 and longterm use of drug Z79.899 [facility] [address], [place] [address] 4108 13 Jul, 2015 [facility] [id number] [place] [address] 50665- 7287 Jun, [facility] [id number] [place] [address] 24348- 5926 Jun, [facility] [id number] [place] [address] 01218- 3229 May, [facility] [id number] [place] [address] 28807- 2237 May, Dysthymic disorder F34.1 and Generalized anxiety disorder F41.1 [facility] [id number] [place] [address] 03898- 1713 Apr, Kidney disease N28.9 [facility] [id number] [place] [address] 14965- 5684 Apr, Generalized anxiety disorder F41.1 and Dysthymic disorder F34.1 [facility] [id number] [place] [address] 93351- 2465 Apr, Chronic kidney disease, stage 4 (severe) N18.4 [facility] [id number] [place] [address] 55800- 1996 Apr, Generalized anxiety disorder F41.1 ; Major depression, recurrent F33.9 and Sleep disturbance G47.9 [facility] [id number] [place] [address] 13858- 3110 Mar, Generalized anxiety disorder F41.1 and Dysthymic disorder F34.1 [facility] [id number] [place] [address] 97212- 5468 Mar, Generalized anxiety disorder F41.1 ; Dysthymic disorder F34.1 and Insomnia G47.00 [facility] [id number] [place] [address] 23326- 0897 Mar, [facility] [id number] [place] [address] 63078- 6085 Mar, [facility] [address] 78558- 7619 Mar, Osteoarthritis of knees, bilateral M17.0 [facility] [address] 34214- 6810 Mar, Hypertension I10 ; Hypothyroid E03.9 ; Dysthymic disorder F34.1 ; Chronic kidney disease, stage 4 (severe) N18.4 and Nausea & vomiting R11.2 [facility] [address] 94479- 1282 Mar, Generalized anxiety disorder F41.1 ; Dysthymic disorder F34.1 and Insomnia G47.00 [facility] [id number] [place] [address] 92398- 9138 Mar, Dehydration E86.0 ; Chronic kidney disease, stage 4 (severe ) N18.4 and Nausea & vomiting R11.2 [facility] [id number] [place] [address] 89790 -8054 Mar, Gastroenteritis K52.9 [facility] [id number] [place] [address] 30399- 7788 Mar, [facility] [id number] [place] [address] 81674- 7052 Mar, [facility] [address] 56933- 1154 Feb, Dysthymic disorder F34.1 and Generalized anxiety disorder F41.1 [facility] [id number] [place] [address] 56366- 2700 Jan, UTI (urinary tract infection) N39.0 ; Asthma J45.909 ; Coronary artery disease involving big lagoon coronary artery of big lagoon heart, angina presence unspecified I25.10 ; Hypertension I10 ; Hypothyroid E03.9 ; Vitamin D deficiency E55.9 ; Insomnia G47.00 ; Palpitations R00.2 ; Depressed F32.9 ; Restless leg G25.81 and Anxiety F41.[address] 28182- 4644 Jan, Dysthymic disorder F34.1 and Generalized anxiety disorder F41.[address] 42911- 0298 Jan, [facility] [address] 92097- 3773 Dec, [address] 68738- 1143 Dec, Alkalosis 276.3 ; Chronic kidney disease, 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.4 ; Hyperpotassemia 276.7 ; Secondary hyperparathyroidism, renal 588.81 ; Proteinuria 791.0 ; Unspecified vitamin D deficiency 268.9 ; Anemia in chronic kidney disease 285.21 ; Other and unspecified hyperlipidemia 272.4 ; Hypertension, essential, benign 401.1 and Chronic kidney disease (CKD), stage III (moderate) 585.3 [place] [id number] [place] [address] 89362- 2433 Dec, [facility] [address] 19026- 6141 Dec, Depressive disorder, not elsewhere classified 311 and Generalized anxiety disorder 300.[address] 73349- 6190 Dec, [facility] [address] 93735- 1967 Dec, [facility] [address] 03693- 6317 Nov, Depressive disorder, not elsewhere classified 311 and Generalized anxiety disorder 300.02 [facility] [id number] [place] [address] 77169- 4565 Nov, Arthritis of both knees 716.96 [facility] [id number] [place] [address] 14165- 3351 Nov, PAF (paroxysmal atrial fibrillation) 427.31 ; CAD (coronary artery disease) 414.00 ; Chest pain 786.50 and Chronic kidney disease (CKD) stage G4/A1, severely decreased glomerular filtration rate (GFR) between 15-29 mL/min/1.73 square meter and albuminuria creatinine ratio less than 30 mg/g 585.4 [place] [id number] [place] [address] 12792- 6209 Oct, Coronary atherosclerosis of unspecified type of vessel, big lagoon or graft 414.00 ; Chronic kidney disease, 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.4 ; Hypertension 401.9 and Edema 782.3 [place] [id number] [place] [address] 97327- 9360 Oct, Depressive disorder, not elsewhere classified 311 and Generalized anxiety disorder 300.02 [facility] [id number] [place] [address] 10308- 2025 Oct, Depressive disorder, not elsewhere classified 311 and Generalized anxiety disorder 300.02 [facility] [id number] [place] [address] 90742- 3576 Oct, [facility] [id number] [place] [address] 18629- 2963 Oct, [facility] [id number] [place] [address] 72827- 5370 Sep, [place] [id number] [place] [address] 49242- 7363 Sep, Chronic kidney disease, 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.4 [facility] [id number] [place] [address] 92629- 1136 Sep, [facility] [address], [place] [address]- 3859 Sep, Coronary atherosclerosis of unspecified type of vessel, big lagoon or graft 414.00 ; Hypertension 401.9 ; Edema 782.3 and Hypothyroidism 244.9 [facility] [id number] [place] [address] 51621- 4160 Sep, Coronary atherosclerosis of unspecified type of vessel, big lagoon or graft 414.00 ; Hypertension 401.9 ; Fibromyalgia 729.1 ; Edema 782.3 ; Hypothyroidism 244.9 and Anemia 285.9 [facility] [id number] [place] [address] 20946- 9873 Sep, Anxiety disorder, unspecified 300.00 and Depressive disorder , not elsewhere classified 311 [facility] [id number] [place] [address] 34505- 8157 Sep, [facility] [id number] [place] [address] 41027- 3199 August, Generalized anxiety disorder 300.02 [facility] [id number] [place] [address] 36348- 4906 August, Closed fracture of lateral malleolus 824.2 [facility] [id number] [address]- 6779 Jul, [facility] [address], [place] [address]- 5876 Jul, [facility] [id number] [place] [address] 31264- 1024 Jun, [facility] [id number] [place] [address] 56655- 2918 Jun, [facility] [id number] [place] [address] 00469- 2072 Jun, [facility] [address], [place] [address]- 8770 Jun, [facility] [address] [id number] [place] [address]- 6835 Jun, [facility] [place] [facility] [address] [id number] [place] [address]- 5045 Jun, [facility] [place] [facility] [address] [id number] [place] [address]- 1912 May, 2014 [facility] [place] [facility] [address] [id number] [place] [address]- 9008 May, 2014 [facility] [place] [facility] [address] [id number] [place] [address]- 2907 May, 2014 [facility] [place] [facility] [address] [id number] [place] [address]- 1942 May, 2014 [facility] [place] [facility] [address] [facility] [id number] [place] [address]- 9132 16 May, 2014 [facility] [place] [facility] [address] [id number] [place] [address]- 1715 16 May, 2014 [facility] [place] [facility] [address] [id number] [place] [address]- 8240 May, 2014 [facility] [place] [facility] [address] [facility] [id number] [place] [address]- 5098 May, 2014 [facility] [place] [facility] [address] [facility] [id number] [place] [address]- 8389 10 May, 2014 [facility] [place] [facility] [address] [facility] [id number] [place] [address]- 7258 May, [facility] [place] [facility] [address] [id number] [place] [address]- 2851 Apr, [facility] [place] [facility] [address] [id number] [place] [address]- 0188 Apr, [facility] [place] [facility] [address] [facility] [id number] [place] [address]- 8635 Mar, [facility] [place] [facility] [address] [facility] [id number] [place] [address]- 0413 Mar, [facility] [place] [facility] [address] [id number] [place] [address]- 5649 Mar, [facility] [place] [facility] [address] [id number] [place] 1375 Mar, [facility] [place] [facility] [address] [id number] [place] [address]- 4916 Mar, [facility] [place] [facility] [address] [id number] [place] [address]- 7477 Mar, [facility] [place] [facility] [address] [id number] [place] [address]- 3151 Mar, [facility] [place] [facility] [address] [id number] [place] [address]- 4021 Feb, [facility] [place] [facility] [address] [id number] [place] [address]- 5206 Feb, [facility] [place] [facility] [address] [id number] [place] [address]- 4962 Feb, [facility] [place] [facility] [address] [id number] [place] [address]- 9825 Jan, [facility] [place] [facility] [address] [id number] [place] [address]- 5810 Jan, [facility] [place] [facility] [address] [id number] [place] [address]- 4597 Jan, [facility] [place] [facility] [address] [id number] [place] [address]- 2389 20 Jan, 2014 [facility] [place] [facility] [address] [id number] [place] [address]- 0157 Jan, [facility] [place] [facility] [address] [id number] [place] [address]- 2351 Jan, [facility] [place] [facility] [address] [id number] [place] [address]- 2604 Jan, [facility] [place] [facility] [address] [id number] [place] [address]- 8462 Jan, [facility] [place] [facility] [address] [id number] [place] [address]- 8049 Jan, [facility] [place] [facility] [address] [id number] [place] [address]- 4146 Jan, [facility] [place] [facility] [address] [id number] [place] [address]- 8349 Nov, [facility] [place] [facility] [address] [id number] [place] [address]- 5979 Nov, [facility] [place] [facility] [address] [id number] [place] [address]- 3874 Nov, [facility] [place] [facility] [address] [id number] [place] [address]- 6167 Oct, [facility] [place] [facility] [address] [id number] [place] [address]- 2796 Oct, [facility] [place] [facility] [address] [id number] [place] [address]- 2672 Oct, [facility] [place] [facility] [address] [id number] [place] [address]- 7665 Oct, [facility] [place] [facility] [address] [id number] [place] [address]- 1325 Oct, [facility] [place] [facility] [address] [id number] [place] [address]- 9147 Oct, [facility] [place] [facility] [address] [id number] [place] [address]- 9767 Oct, [facility] [place] [facility] [address] [id number] [place] [address]- 9942 Oct, [facility] [place] [facility] [address] [id number] [place] [address]- 1748 Oct, [facility] [place] [facility] [address] [id number] [place] 3581 Sep, [facility] [place] [facility] [address] [id number] [place] [address]- 6456 Sep, [facility] [place] [facility] [address] [id number] [place] [address]- 7916 Sep, [facility] [place] [facility] [address] [id number] [place] [address]- 0932 Sep, [facility] [place] [facility] [address] [id number] [place] [address]- 4760 Sep, [facility] [place] [facility] [address] [id number] [place] [address]- 8575 Sep, [facility] [place] [facility] [address] [id number] [place] [address]- 9137 Sep, [facility] [place] [facility] [address] [id number] [place] [address]- 5719 Sep, [facility] [place] [facility] [address] [id number] [place] [address]- 2934 Sep, [facility] [place] [facility] [address] [id number] [place] [address]- 1260 August, [facility] [place] [facility] [address] [id number] [place] [address]- 0228 August, [facility] [place] [facility] [address] [id number], [place] [address]- 7813 August, [facility] [place] [facility] [address] [id number], [place] [address]- 4161 August, [facility] [place] [facility] [address] [id number] [place] [address]- 5613 August, [facility] [place] [facility] [address] [id number] [place] [address]- 1154 August, [facility] [place] [facility] [address] [id number] [place] [address]- 5349 Jul, [facility] [place] [facility] [address] [id number], [place] [address]- 6818 Jul, [facility] [place] [facility] [address] [id number] [place] [address]- 6049 Jul, [facility] [place] [facility] [address] [id number] [place] [address]- 4341 08 Jul, 2013 [facility] [place] [facility] [address] [facility] [id number] [place] [address]- 8225 Jul, [facility] [place] [facility] [address] [facility] [id number] [place] [address]- 3039 Jul, [facility] [place] [facility] [address] [id number] [place] [address]- 6002 Jun, [facility] [place] [facility] [address] [facility] [id number] [place] [address]- 0140 Jun, [facility] [place] [facility] [id number] [place] [address]- 2882 May, [facility] [place] [facility] [address] [facility] [id number] [place] [address]- 8311 May, [facility] [place] [facility] [address] [id number] [place] [address]- 6526 May, [facility] [place] [facility] [address] [facility] [id number] [place] [address]- 5854 May, [facility] [place] [facility] [id number] [place] [address]- 5104 Apr, [facility] [place] [facility] [address] [facility] [id number] [place] [address]- 7046 Apr, [facility] [place] [facility] [address] [facility] [id number] [place] [address]- 9782 Mar, [facility] [place] [facility] [address] [facility] [id number] [place] [address]- 9213 18 Mar, 2013 [facility] [place] [facility] [address] [facility] [id number] [place] [address]- 0533 Mar, [facility] [place] [facility] [address] [id number] [place] [address]- 4114 Mar, [facility] [place] [facility] [address] [id number] [place] [address]- 0795 Mar, [facility] [place] [facility] [address] [id number] [place] [address]- 8313 Mar, [facility] [place] [facility] [address] [id number] [place] [address]- 4827 Feb, [facility] [place] [facility] [address] [id number] [place] [address]- 9449 Feb, [facility] [place] [facility] [address] [id number] [place] [address]- 5481 Feb, [facility] [place] [facility] [address] [id number] [place] [address]- 5262 Feb, [facility] [place] [facility] [address] [id number] [place] [address]- 6278 Feb, [facility] [place] [facility] [address] [id number] [place] [address]- 0473 Feb, [facility] [place] [facility] [address] [id number] [place] [address]- 9129 Jan, [facility] [place] [facility] [address] [id number] [place] [address]- 6794 Jan, [facility] [place] [facility] [address] [id number], [place] [address]- 6237 Jan, [facility] [place] [facility] [address] [id number] [place] [address]- 6357 Jan, [facility] [place] [facility] [address] [id number] [place] [address]- 5637 Jan, [facility] [place] [facility] [address] [id number] [place] [address]- 4190 Jan, [facility] [place] [facility] [address] [id number] [place] [address]- 5795 Dec, [facility] [place] [facility] [address] [id number] [place] [address]- 6372 Dec, [facility] [place] [facility] [address] [id number] [place] [address]- 1027 Nov, [facility] [place] [facility] [address] [id number] [place] [address]- 3194 Nov, [facility] [place] [facility] [address] [id number] [place] [address]- 0484 Oct, [facility] [place] [facility] [address] [id number] [place] [address]- 7895 Oct, [facility] [place] [facility] [address] [id number] [place] [address]- 2022 Oct, [facility] [place] [facility] [address] [id number] [place] [address]- 5384 Oct, [facility] [place] [facility] [address] [id number] [place] [address]- 2330 Oct, [facility] [place] [facility] [address] [id number] [place] 0635 Oct, [facility] [place] [facility] [address] [id number] [place] [address]- 3830 Sep, [facility] [place] [facility] [address] [id number] [place] [address]- 7818 Sep, [facility] [place] [facility] [address] [id number] [place] [address]- 0922 Sep, [facility] [place] [facility] [address] [id number] [place] [address]- 8350 Sep, [facility] [place] [facility] [address] [id number] [place] [address]- 0598 August, [facility] [place] [facility] [address] [id number] [place] 6127 August, [facility] [place] [facility] [address] [id number] [place] [address]- 6396 August, [facility] [address] [id number] [place] [address] August, [facility] [address] [id number] [place] [address] August, [facility] [address] [id number] [place] [address] Jul, [facility] [address] [id number] [place] [address] Jul, [facility] [address] [id number] [place] [address] Jul, [facility] [address] [id number] [place] [address] Jul, [facility] [address] [id number] [place] [address] Jul, [facility] [address] [id number] [place] [address] Jul, [facility] [address] [id number] [place] [address] Jul, [facility] [address] [id number] [place] [address] Jul, [facility] [address] [id number] [place] [address] Jul, [facility] [address] [id number] [place] [address] Jul, [facility] [address] [id number] [id number] Jun, [facility] [address] [id number] [place] [address] Jun, [facility] [address] [id number], [place] [address] Jun, [facility] [place] [facility] [address] [id number] [place] [address] Jun, [facility] [place] [facility] [address] [id number] [place] [address] Jun, [facility] [place] [facility] [address] [id number] [place] [address] May, [facility] [place] [facility] [address] [id number] [place] [address] May, [facility] [place] [facility] [address] [id number] [place] [address] May, [facility] [place] [facility] [address] [id number] [place] [address] Apr, [facility] [address] [id number] [place] [address] Apr, [facility] [address] [id number] [place] [address] Apr, [facility] [place] [facility] [address] [id number] [place] [address] Apr, [facility] [address] [id number] [place] [address] Apr, [facility] [place] [facility] [address] [id number] [place] [address] Apr, [facility] [place] [facility] [address] [id number] [place] [address] Mar, [facility] [place] [facility] [address] [id number] [place] [address] Mar, [facility] [place] [facility] [address] [id number] [place] [address] Mar, [facility] [place] [facility] [address] [id number] [place] [address] Mar, [facility] [place] [facility] [address] [id number], [place] [address] Feb, [facility] [place] [facility] [address] [id number] [place] [address] Feb, [facility] [place] [facility] [address] [id number] [place] [address] Feb, [facility] [place] [facility] [address] [id number] [place] [address] Feb, [facility] [place] [facility] [address] [id number] [place] [address] Feb, [facility] [place] [facility] [address] [id number] [place] [address] Feb, [facility] [place] [facility] [address] [id number] [place] [address] Feb, [facility] [place] [facility] [address] [facility] [id number], [place] [address] Feb, [facility] [place] [facility] [address] [id number] [place] [address] Feb, [facility] [place] [facility] [address] [id number], [place] [address] Feb, [facility] [place] [facility] [address] [id number], [place] [address] Feb, [facility] [place] [facility] [address] [id number], [place] [address] Feb, [facility] [place] [facility] [address] [id number], [place] [address] Feb, [facility] [place] [facility] [address] [id number], [place] [address] Feb, [facility] [place] [facility] [address] [id number], [place] [address] Feb, [facility] [place] [facility] [address] [facility] [id number] [place] [address] Feb, [facility] [place] [facility] [address] [id number] [place] [address] 31 Jan, 2011 [facility] [place] [facility] [address] [id number] [place] [address] 31 Jan, 2011 [facility] [place] [facility] [address] [id number] [place] [address] 31 Jan, 2011 [facility] [place] [facility] [address] [id number] [place] [address] 31 Jan, 2011 [facility] [place] [facility] [address] [id number] [place] [address] 30 Jan, 2011 [facility] [place] [facility] [address] [id number] [place] [address] Jan, [facility] [place] [facility] [address] [id number] [place] [address] 25 Jan, 2011 [facility] [place] [facility] [address] [id number] [place] [address] 16 Jan, 2012 [facility] [place] [facility] [address] [id number] [place] [address] 16 Jan, 2012 [facility] [place] [facility] [address] [id number] [place] [address] 15 Jan, 2012 [facility] [place] [facility] [address] [id number] [place] [address] 15 Jan, 2012 [facility] [place] [facility] [address] [id number] [place] [address] Jan, [facility] [place] [facility] [address] [id number] [place] [address] 26 Dec, 2011 [facility] [place] [facility] [address] [id number] [place] [address] 26 Dec, 2011 [facility] [place] [facility] [address] [id number] [place] [address] 24 Dec, 2011 [facility] [place] [facility] [address] [id number] [place] [address] 23 Dec, 2011 [facility] [place] [facility] [address] [id number] [place] [address] 22 Sep, 2011 [facility] [place] [facility] [address] [id number] [place] [address] 4[address] 21 Dec, 2011 [facility] [place] [facility] [address] [id number] [place] [address] 4[address] 20 Dec, 2011 [facility] [place] [facility] [address] [id number] [place] [address] 7378 20 Sep, 2011 [facility] [place] [facility] [address] [id number] [place] [address] 6646 07 Sep, 2011 [facility] [place] [facility] [address] [id number] [place] [address] 06 Dec, 2011 [facility] [place] [facility] [address] [id number] [place] [address] 9063 06 Dec, 2011 [facility] [place] [facility] [address] [id number] [place] [address] 7726 05 Dec, 2011 [facility] [place] [facility] [address] [id number] [place] [address] 2488 23 Nov, 2011 [facility] [place] [facility] [address] [id number] [place] [address] 9299 17 Nov, 2011 [facility] [place] [facility] [address] [id number] [place] [address] 1541 13 Nov, 2011 [facility] [place] [facility] [address] [id number] [place] [address] 3696 10 Nov, 2011 [facility] [place] [facility] [address] [id number] [place] [address] 0758 08 Nov, 2011 [facility] [place] [facility] [address] [id number] [place] [address]- 2940 07 Nov, 2011 [facility] [place] [facility] [address] [id number] [place] [address] Nov, [facility] [place] [facility] [address] [id number] [place] [address] 74[address] Nov, [facility] [place] [facility] [address] [id number] [place] [address] 4691 Oct, [facility] [place] [facility] [address] [id number] [place] [address] 7666 Oct, [facility] [place] [facility] [address] [id number] [place] [address] 2026 Oct, [facility] [place] [facility] [address] [id number] [place] [address] 59[address] Oct, [facility] [place] [facility] [address] [id number] [place] [address] 0414 Oct, [facility] [place] [facility] [address] [id number] [place] [address] 8106 Oct, [facility] [place] [facility] [address] [id number] [place] [address] 0507 Oct, [facility] [place] [facility] [address] [id number] [place] [address] 8801 Sep, [facility] [place] [facility] [address] [id number] [place] [address] 6597 Sep, [facility] [place] [facility] [address] [id number] [place] [address] August, [facility] [place] [facility] [address] [id number] [place] [address] 90[address] August, [facility] [place] [facility] [address] [id number] [place] [address] 57[address] August, [facility] [place] [facility] [address] [id number] [place] [address] 7206 August, [facility] [place] [facility] [address] [id number] [place] [address] 0262 Jul, [facility] [place] [facility] [address] [id number] [place] [address] 4756 Jul, [facility] [place] [facility] [address] [id number] [place] [address] 9[address] Jul, [facility] [place] [facility] [address] [id number] [place] [address] 0697 Jul, [facility] [place] [facility] [address] [id number] [place] [address] 3446 Jul, [facility] [place] [facility] [address] [id number] [place] [address] Jul, [facility] [place] [facility] [address] [id number] [place] [address] Jul, [facility] [place] [facility] [address] [id number] [place] [address] 4568 Jul, [facility] [place] [facility] [address] [id number] [place] [address] 3593 Jul, [facility] [place] [facility] [address] [id number] [place] [address] 3943 Jun, [facility] [place] [facility] [address] [id number] [place] [address] 1304 Jun, [facility] [place] [facility] [address] [id number] [place] [address] 6[address] Jun, [facility] [place] [facility] [address] [id number] [place] [address] 2924 Jun, [facility] [place] [facility] [address] [id number] [place] [address] 6737 Jun, [facility] [place] [facility] [address] [id number] [place] [address] 5535 Jun, [facility] [place] [facility] [address] [id number] [place] [address] 1544 Jun, [facility] [place] [facility] [address] [id number] [place] [address] 2660 May, [facility] [place] [facility] [address] [id number] [place] [address] 5356 24 May, 2011 [facility] [address] [id number] [place] [address] 0246 May, [facility] [address] [id number] [place] [address] 2836 May, [facility] [address] [facility] [id number] [place] [address] 4896 May, [facility] [address] [id number] [place] [address] 6161 Apr, [facility] [address] [id number] [place] [address] 2407 Apr, [facility] [address] [id number] [place] [address] 1536 Apr, [facility] [address] [facility] [id number] [place] [address] 8926 Apr, [facility] [address] [facility] [id number] [place] [address] 3666 Apr, [facility] [address] [facility] [id number] [place] [address] 9748 Mar, [facility] [address] [facility] [id number] [place] [address] 9361 Mar, [facility] [address] [facility] [id number] [place] [address]- 6077 Mar, [facility] [place] [facility] [address] [id number] [place] [address] 3964 Mar, [facility] [place] [facility] [address] [id number] [place] [address]- 5226 Mar, [facility] [place] [facility] [address] [facility] [id number] [place] [address] 0027 Mar, [facility] [address] [facility] [id number] [place] [address]- 4936 Mar, [facility] [place] [facility] [address] [id number] [place] [address] 7423 11 Feb, 2011 [facility] [place] [facility] [address] [id number] [place] [address]- 4147 Feb, [facility] [place] [facility] [address] [id number] [place] [address] 0956 Feb, [facility] [place] [facility] [address] [id number] [place] [address] 0969 Feb, [facility] [place] [facility] [address] [id number] [place] [address]- 4389 Jan, [facility] [place] [facility] [address] [id number] [place] [address]- 6892 Jan, [facility] [place] [facility] [address] [id number] [place] [address]- 5016 Jan, [facility] [place] [facility] [address] [id number] [place] [address]- 2807 Jan, [facility] [place] [facility] [address] [id number] [place] [address]- 2992 Nov, [facility] [place] [facility] [address] [id number] [place] [address]- 3019 Mar, [facility] [place] [facility] [address] [id number] [place] [address]- 6055 Mar, [facility] [place] [facility] [address] [id number] [place] [address]- 3096 Mar, [facility] [place] [facility] [address] [id number] [place] [address] 2544 Mar, [facility] [place] [facility] [address] [id number] [place] [address]- 7356 Mar, [facility] [place] [facility] [address] [id number] [place] [address]- 4456 Mar, [facility] [place] [facility] [address] [id number] [place] [address]- 6982 Feb, [facility] [address] [facility] [id number], [place] [address] Feb, [facility] [address] [facility] [id number], [place] [address] 2546 Jan, [facility] [address] [facility] [id number], [place] [address] 2546 Jan, [facility] [address] [facility] [id number], [place] [address]46 Jan, IMMUNIZATIONS Vaccine Route Administration Date Status ROCEPHIN 500 MG (IM) IM Intramuscular Nov 15, 2017 Administered SOCIAL HISTORY Never Assessed REASON FOR VISIT UTI symptoms, had a stimulator placed on the 30 of october and now she is having dysuria and her urine has an odor-AHarrymanRN PLAN OF CARE Activity Details Follow Up if not improving or regular follow up with pcp Reason: VITAL SIGNS Height 63 in 2017-11-15 Weight 194.5 lbs 2017-11-15 Temperature 97.6 degrees Fahrenheit 2017-11-15 Heart Rate 78 bpm 2017-11-15 Respiratory Rate 20 2017-11-15 BMI 34.45 kg/m2 2017-11-15 Blood pressure systolic 110 mmHg 2017-11-15 Blood pressure diastolic 64 mmHg 2017-11-15 MEDICATIONS Medication Instructions Dosage Frequency Start Date End Date Duration Status Toprol XL 50 mg po Once a day 1 tablet 24h 90 day Active Ferrous Sulfate 325 (65 Fe) MG Orally 3 times a day 1 tablet 8h Active Oxycodone-Acetaminophen 5-325 MG/5ML Orally every 6 hrs 5 ml as needed 6h Not-Taking Fish Oil 1200 MG Orally Once a day at hs 1 capsule Active Vitamin D (Ergocalciferol) 24755 UNIT TAKE ONE CAPSULE BY MOUTH TWICE WEEKLY 56 Active Requip 5 MG Orally Once a day 1 tablet 24h Active Gemfibrozil 600 MG TAKE ONE TABLET BY MOUTH TWICE DAILY 30 Active Synthroid 150 MCG TAKE 1 TABLET BY MOUTH ONCE DAILY 30 Active Vitamin D-3 1000 UNIT Orally Once a day 1 tablet 24h Active Topamax 100 MG Orally Twice a day 1 tablet 12h Active Lyrica 150 MG Orally 2 times a day 1 capsule 12h 28 days Active Nystatin 794733 UNIT/ML Mouth/Throat Four times a day 4 ml 6h Active Pantoprazole Sodium 40 MG TAKE ONE TABLET BY MOUTH ONCE DAILY 30 Active Cymbalta 60 MG TAKE ONE CAPSULE BY MOUTH ONCE DAILY Active Symbicort 80-4.5 MCG/ACT INHALE TWO PUFFS BY MOUTH TWICE DAILY. 25 Active Ipratropium [place] 0.03 % Nasally Three times a day prn drainage 1-2 sprays in each nostril as needed Active Aspirin 325 MG Orally Once a day 1 tablet 24h Active Oxybutynin Chloride ER 10 mg Orally Once a day 1 tablet 24h August, 30 day(s) Not-Taking Fiber Complete - Active Fluticasone Propionate 50 MCG/ACT USE ONE SPRAY IN EACH NOSTRIL TWICE DAILY Active Vitamin C 1000 MG Orally Once a day 1 tablet 24h Active Cetirizine HCl 10 MG Orally Once a day 1 tablet 24h Active ProAir HFA 108 (90 Base) MCG/ACT 1 puff Active Ciprofloxacin HCl 500 mg Orally every 12 hrs 1 tablet 12h Nov, Nov, 07 days Active Nystatin 908996 UNIT/GM Externally Twice a day 1 application to thighs as needed 12h 19 Sep, 2016 5 Active RESULTS No Results PROCEDURES Procedure Date Ordered Result [facility] Nov 15, 2017 URINALYSIS, AUTO, W/O SCOPE Nov 15, 2017 THER/PROPH/DIAG INJ, SC/IM Nov 15, 2017 ROCEPHIN 500 MG (IM) Nov 15, 2017 [facility] VISIT ESTABLISHED PATIENT Nov 15, 2017 INSTRUCTIONS MEDICATIONS ADMINISTERED No Known Medications [...] 2020 & 2007 Surgical History Bladder surgery [facility] 03/2016 Surgical History Neurotransmitter placed 10/2017 Hospitalization History Surgeries Only Hospitalization History bacterial meningitis December 2016 Hospitalization History [facility] psych for SI 1988 Hospitalization History [facility]-Altered mental status 05/2017
--- NOTE | 2018-05-29 07:52 | Cardiac Procedure Note-CS/ASA ---
Pre-Procedure Note Pre-Op Procedure Note H&P Reviewed The H&P was reviewed, patient examined and no changes noted. Date H&P Reviewed: May 29, 2018 Time H&P Reviewed: 07:51 Conscious Sedation Pre-Proced Time 07:51 ASA Score 3 For ASA 3 and 4: Consider anesthesia and medical clearance. Also, for patients with a history of failed moderate sedation consider anesthesia. Airway Lungs Heart ASA score ASA 1: a normal healthy patient ASA 2: a patient with a mild systemic disease (mid diabetes, controlled hypertension, obesity X ASA 3: a patient with a severe systemic disease that limits activity (angina , COPD, prior Myocardial infarction) ASA 4: a patient with an incapacitating disease that is a constant threat to life (CHF, renal failure) ASA 5: a moribund patient not expected to survive 24 hrs. (ruptured aneurysm) ASA 6: a declared brain- patient whose organs are being harvested. For emergent operations, add the letter E after the classification Mallampati Classification Grade 3 Sedation Plan Analgesia, Amnesia, Plan communicated to team members, Discussed options with patient/fam, Discussed risks with patient/fam The patient is an appropriate candidate to undergo the planned procedure, sedation, and anesthesia. The patient immediately re-assessed prior to indication. ARUNA HERNANDEZ MD May 29, 2018 07:52
--- OUTSIDE RECORDS SUMMARY | 2018-05-29 07:52 | XMS REPORT ---
Author Author ZHANE BOSCH [facility] Address [address] [place] [address] Care Team Providers Care Surgical Orderly Name Role Phone ZHANE BOSCH Unavailable PROBLEMS Type Condition ICD9-CM Code SLP31-HQ Code Onset Dates Condition Status SNOMED Code Problem Low back pain M54.5 Active 565078636 Problem Abnormal chest CT R93.8 Active 624014742 Problem Dysthymic disorder F34.1 Active 06438036 Problem Generalized anxiety disorder F41.1 Active 14816000 Problem Coronary artery disease involving cloverdale coronary artery of cl[place] heart, angina presence unspecified I25.10 Active 0955547107367 Problem Restless leg G25.81 Active 33004330 Problem Hypothyroid E03.9 Active 52983300 Problem Insomnia G47.00 Active 694557274 Problem Asthma J45.909 Active 033075569 Problem Chronic kidney disease, unspecified N18.9 Active 059949628 Problem Palpitations R00.2 Active 27673507 Problem Anemia in chronic kidney disease D63.1 Active [id number] Problem Depressed F32.9 Active 82073669 Problem Bipolar disorder, current episode manic without psychotic features F31.10 Active 030211016 Problem Primary osteoarthritis of left knee M17.12 Active 436526298 Problem Degenerative tear of medial meniscus of left knee M23.204 Active 322792040 Problem Chronic pain syndrome G89.4 Active 472438552 Problem Restless leg syndrome G25.81 Active 00190406 Problem History of colon polyps Z86.010 Active 616372478 Problem Functional 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 Active 50593420 Problem Chronic kidney disease, stage 4 (severe) N18.4 Active 078183593 Problem Stage 3 chronic kidney disease N18.3 Active 373282264 Problem Mood disorder F39 Active 62107985 Problem Seasonal allergic rhinitis due to pollen J30.1 Active 55459734 Problem Body mass index (BMI) of 40.0-44.9 in adult Z68.41 Active 026359493 Problem Other seasonal allergic rhinitis J30.2 Active 680717780 Problem Long-term use of high-risk medication Z79.899 Active 917722254 Problem Hypokalemia E87.6 Active 01352393 Problem Asthma with acute exacerbation in adult J45.901 Active 273016610 Problem History of anemia Z86.2 Active 243928441 Problem Vitamin D deficiency E55.9 Active 81049525 Problem Essential (primary) hypertension I10 Active 97590119 Problem Fibromyalgia M79.7 Active 114429704 Problem Mixed stress and urge urinary incontinence N39.46 Active 928900416 ALLERGIES No Information ENCOUNTERS Encounter Location Date Diagnosis [place] [id number] [address] Jan, [place] [address] 8[address]- 1383 Dec, [place] [address] 6[address]96- 1402 Nov, [facility] [address] 16828- 7392 Nov, [facility] [address] 75197- 1647 Nov, [facility] [address] [place] [id number] [place] [address] 34032- 4566 Nov, Fibromyalgia M79.7 ; Vision changes H53.9 ; Chest wall pain R07.89 and Chronic pain syndrome G89.4 [facility] [address] [place] [id number] [place] [address] 32699- 6010 Nov, [facility] [address] 07842- 6037 Nov, Rash of hands R21 [facility] [address] [place] [id number] [place] [address] 46220- 2065 Nov, Generalized anxiety disorder F41.1 and Major depressive disorder, recurrent episode with anxious distress F33.9 [place] [address] [place] [id number] [place] [address] 33926- 1318 Nov, Fibromyalgia M79.7 [facility] [address] [place] [id number] [place] [address] 05242- 7145 Nov, Complicated UTI (urinary tract infection) N39.0 [facility] [address] [place] [id number] [place] [address] 80715- 4080 Oct, [facility] [address] [place] [id number] [place] [address] 22306- 0802 Oct, Generalized anxiety disorder F41.1 and Major depressive disorder, recurrent episode with anxious distress F33.9 [facility] [address] [place] [id number] [place] [address] 08360- 6802 Oct, [facility] [address] [place] [id number] [place] [address] 78955- 3652 Oct, Fibromyalgia M79.7 [facility] [address] [place] [id number] [place] [address] 73851- 9761 Sep, Restless leg syndrome G25.81 and Restless leg G25.81 [facility] [address] [place] [id number] [place] [address] 05665- 4359 Sep, [facility] [address] [place] [id number] [place] [address] 19821- 7358 Sep, Seasonal allergic rhinitis due to pollen J30.1 ; Screening for breast cancer Z12.31 ; Chest pain at rest R07.9 ; Restless leg syndrome G25.81 ; Essential (primary) hypertension I10 and Depressed F32.9 [facility] [id number] [place] [address] 01266- 3300 August, Fibromyalgia M79.7 [facility] [address] [place] [id number] [place] [address] 38768- 0476 August, [facility] [address] [place] [id number] [place] [address] 94010- 6152 August, [facility] [address] [place] [address]- 2205 August, Abnormal chest CT R93.8 [place] [address] 53805- 2885 August, Generalized anxiety disorder F41.1 and Major depressive disorder, recurrent episode with anxious distress F33.9 [place] [address] 64868- 4526 August, Ab[address] chest [address] R93.8 [place] [address] 25158- 7964 Jul, [place] [address] 99652- 8766 Jul, Chronic kidney disease, stage 4 (severe) N18.4 [place] [address] 57869- 6366 Jul, [place] [address] 09194- 6722 Jul, Restless leg G25.81 ; Mixed stress and urge urinary incontinence N39.46 and Fibromyalgia M79.7 [place] [address] 35160- 4106 Jul, Chronic kidney disease, stage 4 (severe) N18.4 [place] [address] [place] [id number] [place] [address] 21994- 3419 Jun, Orthostatic hypotension I95.1 ; Chronic kidney disease, stage 4 (severe) N18.4 ; Chest wall discomfort R07.89 and Body mass index (BMI) of 40.0-44.9 in adult Z68.41 [place] [address] 00674- 3865 Jun, [place] [address] 49753- 5262 Jun, Orthostatic hypotension I95.1 [place] [address] 94338- 6460 Jun, [facility] [address] [place] [id number] [place] [address] 45624 -3125 Jun, Orthostatic hypotension I95.1 ; Dysuria R30.0 and Acute cystitis without hematuria N30.00 [facility] [address] [place] [id number] [place] [address] 86296- 2713 Jun, [facility] [address] 33841- 1112 Jun, Chronic kidney disease, stage 4 (severe) N18.4 [facility] [address] [place] [id number] [place] [address] 25727- 8155 Jun, Fibromyalgia M79.7 [facility] [address] [place] [id number] [place] [address] 66875- 0821 Jun, [facility] [address] 63583- 6943 Jun, [facility] [address] [place] [id number] [place] [address] 49406- [address] May, [address] R93.8 and Stage 3 chronic kidney disease N18.3 [facility] [address] [place] [id number] [place] [address] 53900- 4020 May, Chronic kidney disease, stage 4 (severe) N18.4 [facility] [address] [place] [id number] [place] [address] 24535- 0577 May, Chronic kidney disease, stage 4 (severe) N18.4 [facility] [address] [place] [id number] [place] [address] 19723- [address] May, [address] R93.8 [facility] [address] [place] [id number] [place] [address] 39577- 2788 May, [facility] [address] [place] [id number] [place] [address] 62214- 4904 May, [place] [address] [address]- 1690 May, Generalized anxiety disorder F41.1 and Major depressive disorder, recurrent episode with anxious distress F33.9 [place] [address] [address]- 4147 May, Mood disorder F39 [place] [address] [place] [address] 78785- 1424 Apr, [place] [address] [place] [address] 26360- 3289 Apr, Infected skin lesion L08.9 and Muscle strain of right shoulder region, initial encounter S46.911A [place] [address] [address]- 2786 Apr, Generalized anxiety disorder F41.1 and Major depressive disorder, recurrent episode with anxious distress F33.9 [place] [address] [place] [address] 24830- 2646 Apr, [facility] [address] [place] [address] 57993- 3727 Apr, Recent urinary tract infection Z87.440 and Hypothyroid E03.9 [place] [address] [address]- 5594 Apr, Generalized anxiety disorder F41.1 and Major depressive disorder, recurrent episode with anxious distress F33.9 [place] [address] [place] [address] 23158- 5180 Apr, Recent urinary tract infection Z87.440 [place] [address] [place] [address] 24082- 5819 Mar, [facility] [address] [address] -[address]84 Mar, Dysuria R30.0 ; Acute cystitis without hematuria N30.00 and BMI 40.0-44.9, adult Z68.41 [place] [address] [place] [id number] [place] [address] 82977- 0661 14 Mar, 2017 [place] [address] [place] [id number] [place] [address] 16551- 8999 Mar, [facility] [address] [place] [id number] [place] [address] 61056- 1355 Mar, Generalized anxiety disorder F41.1 and Major depressive disorder, recurrent episode with anxious distress F33.9 [place] [address] [place] [id number] [place] [address] 46459- 5329 Feb, Conjunctivitis, bacterial H10.9 [place] [address] 06506- 4577 Feb, [facility] [address] [place] [id number] [place] [address] 29303 -7685 Feb, Conjunctivitis, bacterial H10.9 [place] [address] [place] [id number] [place] [address] 48655- 9827 Feb, [facility] [address] [place] [id number] [place] [address] 13779 -4987 Feb, Dysuria R30.0 ; Acute cystitis N30.00 and BMI 40.0-44.9, adult Z68.41 [place] [address] [place] [id number] [place] [address] 99351- 6275 Feb, [place] [address] [place] [id number] [place] [address] 22726- 4622 Feb, Generalized anxiety disorder F41.1 and Major depressive disorder, recurrent episode with anxious distress F33.9 [place] [address] [place] [id number] [place] [address] 60041- 6726 Feb, Mood disorder F39 and BMI 40.0-44.9, adult Z68.41 [place] [address] [place] [id number] [place] [address] 74517- 3271 Jan, [place] [address] [place] [address]- 2565 18 Jan, 2017 [facility] [address] [place] [id number] [place] [address] 90938- 4842 Jan, Hypothyroid E03.9 [facility] [address] [place] [id number] [place] [address] 67766- 8414 Jan, [place] [address] [place] [id number] [place] [address] 03759- 6282 04 Jan, 2017 Chronic kidney disease, unspecified N18.9 ; Hypokalemia E87.6 ; Essential (primary) hypertension I10 ; Fibromyalgia M79.7 ; Coronary artery disease involving clover[place] coronary artery of [place] heart, angina presence unspecified I25.10 ; Hypothyroid E03.9 and Encounter for immunization Z23 [place] [address] [place] [id number] [place] [address] 41054- 8516 04 Jan, 2017 Hypothyroid E03.9 [place] [address] 18100- 5455 Jan, [facility] [address] [place] [id number] [place] [address] 82187- 9619 28 Dec, 2016 Vitamin D deficiency E55.9 [place] [address] [place] [id number] [place] [address] 88774- 0462 28 Dec, 2016 Primary osteoarthritis of left knee M17.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 [place] [address] [place] [id number] [place] [address] 19329- 9052 19 Dec, 2016 Fibromyalgia M79.7 [facility] [address] [place] [id number] [place] [address] 09299- 7255 18 Dec, 2016 Mood disorder F39 [place] [address] 91725- 5985 13 Dec, 2016 [facility] [address] [place] [id number] [place] [address] 13049- 0235 13 Dec, 2016 Generalized anxiety disorder F41.1 and Major depressive disorder, recurrent episode with anxious distress F33.9 [facility] [address] [address]- 2520 11 Dec, 2016 [facility] [address] [place] [id number] [place] [address] 30865- 2877 08 Dec, 2016 Streptococcal meningitis G00.2 [facility] [address] [place] [id number] [place] [address] 65805- 0701 07 Dec, 2016 Streptococcal meningitis G00.2 [facility] [id number] [place] [address] 56549- 3175 07 Dec, 2016 [facility] [address] [place] [id number] [place] [address] 25652- 6994 Dec, 2016 [facility] [address] [place] [address] 54619- 6776 Dec, 2016 Streptococcal meningitis G00.2 [facility] [address] [place] [id number] [place] [address] 39685- 5588 Dec, Major depressive disorder, recurrent episode with anxious distress F33.9 [facility] [address] [place] [address] 86147- 8025 Nov, Fever, unspecified fever cause R50.9 [facility] [id number] [place] [address] 88278- 1958 Nov, [facility] [address] [place] [address] 26247- 6796 Nov, Hypothyroid E03.9 [facility] [address] [place] [address] 24924- 8229 Nov, Generalized anxiety disorder F41.1 and Major depressive disorder, recurrent episode with anxious distress F33.9 [facility] [id number] [place] [address] 05251- 7258 Nov, [facility] [id number] [id number] Oct, Dental examination Z01.20 [place] [address] [address]- 9187 17 Oct, 2016 Generalized anxiety disorder F41.1 and Major depressive disorder, recurrent episode with anxious distress F33.9 [facility] [address] [address]- 4370 Oct, Chronic kidney disease, stage 4 (severe) N18.4 [place] [address] [place] [id number] [place] [address] 93323- 5606 Oct, [place] [address] [place] [address] 75308- 9446 Oct, Fibromyalgia M79.7 [place] [address] [place] [id number] [place] [address] 77199- 9905 Oct, [place] [address] [place] [address] 17678- 7754 Oct, Generalized anxiety disorder F41.1 ; Major depressive disorder, recurrent episode with anxious distress F33.9 and Bipolar disorder, current episode manic without psychotic features F31.10 [place] [address] [place] [address] 22042- 0039 Sep, [place] [address] [address]- 9473 Sep, [place] [address] [address]- 1043 Sep, Vitamin D deficiency E55.9 [facility] [address] [address] 2540 14 Sep, 2016 Vitamin D deficiency E55.9 [place] [address] [place] [id number] [place] [address] 78421- 5986 Sep, [place] [address] [address]- 2543 Sep, Chronic kidney disease, stage 4 (severe) N18.4 ; Hypothyroid E03.9 ; Restless leg G25.81 ; Fibromyalgia M79.7 ; Essential ( primary) hypertension I10 ; Vitamin D deficiency E55.9 ; Dyspepsia R10.13 ; Anemia in chronic kidney disease D63.1 ; Chronic kidney disease, unspecified N18.9 ; Coronary artery disease involving cloverdale coronary artery of cl[place] heart , angina presence unspecified I25.10 ; Screening breast examination Z12.39 and Low back pain M54.5 [place] [address] [place] [id number] [place] [address] 20728- 7084 August, Generalized anxiety disorder F41.1 and Major depressive disorder, recurrent episode with anxious distress F33.9 [place] [address] [place] [id number] [place] [address] 09700- 3438 August, Generalized anxiety disorder F41.1 and Major depressive disorder, recurrent episode with anxious distress F33.9 [place] [address] [place] [id number] [place] [address] 41895- 6110 August, Fibromyalgia M79.7 [place] [address] [place] [id number] [place] [address] 87021- 3556 Jul, Generalized anxiety disorder F41.1 and Major depressive disorder, recurrent episode with anxious distress F33.9 [place] [address] [place] [id number] [place] [address] 16053- 9218 Jul, Fibromyalgia M79.7 [place] [address] [place] [id number] [place] [address] 74675- 6652 Jul, Generalized anxiety disorder F41.1 [place] [address] [place] [id number] [place] [address] 31683- 7159 May, [place] [address] [place] [id number] [place] [address] 63960- 6218 May, Hypothyroid E03.9 [place] [address] [place] [id number] [place] [address] 79044- 9767 08 May, 2016 Chronic kidney disease, stage 4 (severe) N18.4 ; Hypothyroid E03.9 ; Restless leg G25.81 ; Fibromyalgia M79.7 ; Essential ( primary) hypertension I10 ; Vitamin D deficiency E55.9 ; Dyspepsia R10.13 ; Acute non-recurrent maxillary sinusitis J01.00 ; Anemia in chronic kidney disease D63.1 ; Chronic kidney disease, unspecified N18.9 and Coronary artery disease involving cloverdale coronary artery of cl[place] heart, angina presence unspecified I25.10 [place] [address] [place] [id number] [place] [address] 70058- 9689 May, Vitamin D deficiency, unspecified E55.9 [place] [address] [place] [id number] [place] [address] 42085- 2532 May, Generalized anxiety disorder F41.1 and Major depressive disorder, recurrent episode with anxious distress F33.9 [place] [address] [place] [id number] [place] [address] 46813- 6409 Apr, Pain in right knee M25.561 and Pain in left knee M25.562 [place] [address] [place] [id number] [place] [address] 85409- 2025 Apr, [place] [address] [place] [id number] [place] [address] 20241- 7148 Apr, [place] [address] [place] [id number] [place] [address] 94160- 5460 Apr, [place] [address] [place] [id number] [place] [address] 85354- 9645 Mar, Generalized anxiety disorder F41.1 and Major depressive disorder, recurrent episode with anxious distress F33.9 [place] [address] [place] [id number] [place] [address] 25756- 2458 Mar, Generalized anxiety disorder F41.1 and Major depressive disorder, recurrent episode with anxious distress F33.9 [place] [address] [place] [id number] [place] [address] 40092- 2182 Mar, [place] [address] [place] [id number] [place] [address] 41777- 9770 Mar, [place] [address] [place] [address] [place] [address]- 2729 Mar, [facility] [address] [place] [id number] [place] [address] 99560- 7715 Mar, Asthma J45.909 and Fibromyalgia M79.7 [facility] [address] 71037- 2682 Mar, Chronic kidney disease, stage 4 (severe) N18.4 ; Vitamin D deficiency E55.9 and Essential (primary) hypertension I10 [place] [address] 30505- 0426 Feb, [place] [address] 65125- 6840 Feb, Dysuria R30.0 ; Mixed stress and urge urinary incontinence N39.46 ; Fibromyalgia M79.7 and Chronic kidney disease, stage IV (severe) N18.4 [place] [address] 16513- 0266 Feb, Chronic kidney disease, stage 4 (severe) N18.4 [place] [address] 41614- 7180 Feb, Chronic kidney disease, stage 4 (severe) N18.4 [place] [address] [place] [id number] [place] [address] 69876- 2063 Feb, [facility] [address] [place] [id number] [place] [address] 83942- 5645 Feb, Vitamin D deficiency, unspecified E55.9 [facility] [address] [place] [id number] [place] [address] 13055- 7557 Jan, [facility] [address] 08344- 6912 Jan, [facility] [address] [place] [id number] [place] [address] 09354- 4151 Dec, [facility] [address] [place] [address]- 6158 Dec, Chronic kidney disease, stage 4 (severe) N18.4 [facility] [address] 31881- 9211 Dec, Dysthymic disorder F34.1 and Generalized anxiety disorder F41.1 [facility] [address] 74084- 2522 Dec, [facility] [address] 72324- 5746 Dec, [place] [address] 60160- 2912 Dec, Dysthymic disorder F34.1 and Generalized anxiety disorder F41.1 [place] [address] 30612- 8594 Dec, Dysuria R30.0 ; Chronic kidney disease, stage 4 (severe) N18.4 ; Hypertension I10 ; Dyspepsia R10.13 ; Yeast dermatitis B37.2 ; Palpitations R00.2 ; Hypothyroid E03.9 ; Functional 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 and Other seasonal allergic rhinitis J30.2 [facility] [address] [place] [id number] [place] [phone] Dec, [facility] [address] [place] [id number] [place] [phone] Nov, Dysuria R30.0 and Stress incontinence N39.3 [facility] [address] [place] [id number] [place] [phone] Nov, [place] [address] [address] Nov, [facility] [address] [place] [id number] [place] [phone] Nov, Osteoarthritis of knees, bilateral M17.0 [facility] [address] [address] Nov, Dysthymic disorder F34.1 and Generalized anxiety disorder F41.1 [place] [address] [place] [id number] [place] [phone] Nov, [facility] [address] [place] [id number] [place] [phone] Nov, [facility] [address] [place] [id number] [place] [phone] Nov, Urgency of urination R39.15 [place] [address] [place] [id number] [place] [phone] Nov, [place] [address] [address] [place] [id number] [place] [address] 88439- 0779 Nov, Chronic kidney disease, stage 4 (severe) N18.4 [place] [id number] [place] [address] 76888- 9931 Oct, Hypertension I10 ; Coronary artery disease involving cloverdale coronary artery of cloverdale heart, angina presence unspecified I25.10 ; Palpitations R00.2 ; Hypothyroid E03.9 ; Right foot pain M79.671 ; Functional 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 and Other seasonal allergic rhinitis J30.2 [place] [id number] [place] [address] 04559- 3350 Oct, Dysthymic disorder F34.1 and Generalized anxiety disorder F41.1 [place] [id number] [place] [address] 33296- 4684 Sep, [facility] [id number] [place] [address] 87580- 7624 Sep, [facility] [id number] [place] [address] 51222- 5282 Sep, [facility] [id number] [place] [address] 85472- 8318 Sep, [facility] [id number] [place] [address] 33314- 7986 29 Sep, 2015 [place] [id number] [place] [address] 61277- 3298 27 Sep, 2015 Dysthymic disorder F34.1 and Generalized anxiety disorder F41.1 [place] [id number] [place] [address] 44523- 2512 16 Sep, 2015 Asthma with acute exacerbation in adult J45.901 ; Dysuria R30.0 ; Chronic kidney disease, stage 4 (severe) N18.4 and History of anemia Z86.2 [place] [id number] [place] [address] 83434- 0461 2015 Generalized anxiety disorder F41.1 and Dysthymic disorder F34.1 [place] [id number] [place] [address] 39871- 2152 August, Screening breast examination Z12.39 and Acute recurrent maxillary sinusitis J01.01 [place] [id number] [place] [address] 35914- 3091 August, Osteoarthritis of knees, bilateral M17.0 [place] [id number] [place] [address] 41915- 1431 August, Chronic kidney disease, stage 4 (severe) N18.4 ; Acute non- recurrent maxillary sinusitis J01.00 ; Urinary problem R39.89 ; Bowel habit changes R19.4 ; Functional 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 and History of colon polyps Z86.010 [place] [id number] [place] [address] 17401- 8452 Jul, Dysthymic disorder F34.1 and Generalized anxiety disorder F41.1 [place] [id number] [place] [address] 89072- 7749 Jul, [place] [id number] [place] [address] 56500- 3262 Jul, Dysthymic disorder F34.1 ; Generalized anxiety disorder F41.1 and sight effects specialist use of drug Z79.[address] [id number] [address] 0[address] 13 Jul, 2015 [facility] [id number] [place] [address] 81059- 6319 16 Jun, 2015 [facility] [id number] [place] [address] 38755- 0332 Jun, [facility] [id number] [place] [address] 51628- 9340 May, [facility] [id number] [place] [address] 00717- 4032 May, Dysthymic disorder F34.1 and Generalized anxiety disorder F41.1 [place] [id number] [place] [address] 28418- 5518 Apr, Kidney disease N28.9 [facility] [id number] [place] [address] 63755- 5276 Apr, Generalized anxiety disorder F41.1 and Dysthymic disorder F34.1 [facility] [id number] [place] [address] 66129- 6250 Apr, Chronic kidney disease, stage 4 (severe) N18.4 [facility] [id number] [place] [address] 48938- 5637 Apr, Generalized anxiety disorder F41.1 ; Major depression, recurrent F33.9 and Sleep disturbance G47.9 [facility] [id number] [place] [address] 52318- 4288 Mar, Generalized anxiety disorder F41.1 and Dysthymic disorder F34.1 [facility] [id number] [place] [address] 29341- 6856 Mar, Generalized anxiety disorder F41.1 ; Dysthymic disorder F34.1 and Insomnia G47.00 [facility] [id number] [place] [address] 49892- 7781 Mar, [facility] [id number] [place] [address] 96156- 1946 Mar, [facility] [address] 20751- 7954 Mar, Osteoarthritis of knees, bilateral M17.0 [place] [id number] [place] [address] 66820- 0715 Mar, Hypertension I10 ; Hypothyroid E03.9 ; Dysthymic disorder F34.1 ; Chronic kidney disease, stage 4 (severe) N18.4 and Nausea & vomiting R11.2 [place] [id number] [place] [address] 74424- 7306 Mar, Generalized anxiety disorder F41.1 ; Dysthymic disorder F34.1 and Insomnia G47.00 [place] [address] 23259- 8813 Mar, Dehydration E86.0 ; Chronic kidney disease, stage 4 (severe ) N18.4 and Nausea & vomiting R11.2 [facility] [id number] [place] [address] 25954 -8243 Mar, Gastroenteritis K52.9 [place] [address] 67504- 1735 Mar, [place] [address] 16450- 7899 Mar, [place] [id number] [place] [address] 05316- 8616 Feb, Dysthymic disorder F34.1 and Generalized anxiety disorder F41.1 [place] [id number] [place] [address] 23295- 8471 Jan, UTI (urinary tract infection) N39.0 ; Asthma J45.909 ; Coronary artery disease involving cloverdale coronary artery of cloverdale heart, angina presence unspecified I25.10 ; Hypertension I10 ; Hypothyroid E03.9 ; Vitamin D deficiency E55.9 ; Insomnia G47.00 ; Palpitations R00.2 ; Depressed F32.9 ; Restless leg G25.81 and Anxiety F41.9 [place] [id number] [place] [address] 46297- 7594 Jan, Dysthymic disorder F34.1 and Generalized anxiety disorder F41.1 [place] [id number] [place] [address] 68467- 5210 Jan, [place] [address] 37072- 3068 30 Dec, 2014 [place] [id number] [place] [address] 50195- 2627 28 Dec, 2014 Alkalosis 276.3 ; Chronic kidney disease, 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.4 ; Hyperpotassemia 276.7 ; Secondary hyperparathyroidism, renal 588.81 ; Proteinuria 791.0 ; Unspecified vitamin D deficiency 268.9 ; Anemia in chronic kidney disease 285.21 ; Other and unspecified hyperlipidemia 272.4 ; Hypertension, essential, benign 401.1 and Chronic kidney disease (CKD), stage III (moderate) 585.3 [place] [id number] [place] [address] 04985- 3418 Dec, [facility] [id number] [place] [address] 87377- 4027 Dec, Depressive disorder, not elsewhere classified 311 and Generalized anxiety disorder 300.02 [place] [id number] [place] [address] 61565- 4009 Dec, [place] [id number] [place] [address] 79814- 7562 08 Dec, 2014 [place] [id number] [place] [address] 87758- 0500 Nov, Depressive disorder, not elsewhere classified 311 and Generalized anxiety disorder 300.02 [place] [id number] [place] [address] 81446- 5273 Nov, Arthritis of both knees 716.96 [place] [address] [place] [id number] [place] [address]- 2290 Nov, PAF (paroxysmal atrial fibrillation) 427.31 ; CAD (coronary artery disease) 414.00 ; Chest pain 786.50 and Chronic kidney disease (CKD) stage G4/A1, severely decreased glomerular filtration rate (GFR) between 15-29 mL/min/1.73 square meter and albuminuria creatinine ratio less than 30 mg/g 585.[address] 90337- 9602 Oct, Coronary atherosclerosis of unspecified type of vessel, cloverdale or graft 414.00 ; Chronic kidney disease, 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.4 ; Hypertension 401.9 and Edema 782.[address] 77024- 8896 Oct, Depressive disorder, not elsewhere classified 311 and Generalized anxiety disorder 300.[address] 12118- 9753 Oct, Depressive disorder, not elsewhere classified 311 and Generalized anxiety disorder 300.[address] 65169- 4152 Oct, [address] 59303- 7759 Oct, [place] [id number] [place] [address] 80514- 7176 Sep, [address] 25007- 2282 Sep, Chronic kidney disease, 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.[address] 56479- 8847 Sep, [address] 58500- 0466 Sep, Coronary atherosclerosis of unspecified type of vessel, cloverdale or graft 414.00 ; Hypertension 401.9 ; Edema 782.3 and Hypothyroidism 244.9 [place] [id number] [place] [address] 07566- 4048 Sep, Coronary atherosclerosis of unspecified type of vessel, cloverdale or graft 414.00 ; Hypertension 401.9 ; Fibromyalgia 729.1 ; Edema 782.3 ; Hypothyroidism 244.9 and Anemia 285.9 [facility] [id number] [place] [address] 68980- 6770 Sep, Anxiety disorder, unspecified 300.00 and Depressive disorder , not elsewhere classified 311 [facility] [id number] [place] [address] 34964- 7542 Sep, [facility] [address] 95608- 9561 August, Generalized anxiety disorder 300.02 [facility] [id number] [place] [address] 45751- 4561 August, Closed fracture of lateral malleolus 824.2 [facility] [id number] [place] [address] 31048- 1341 Jul, [facility] [id number] [place] [address] 71015- 3488 Jul, [facility] [id number] [place] [address] 66942- 5631 Jun, [facility] [id number] [place] [address] 86510- 7432 Jun, [facility] [id number] [place] [address] 18652- 3177 Jun, [facility] [id number] [place] [address] 22742- 8332 Jun, [facility] [id number] [place] [address] 06526- 4729 Jun, [facility] [id number] [place] [address] 87626- 3602 Jun, [facility] [id number] [place] [address] 56124- 4938 19 May, 2014 [facility] [place] [facility] [address] [id number] [place] [address]- 8066 19 May, 2014 [facility] [place] [facility] [address] [id number] [place] 9456 18 May, 2014 [facility] [place] [facility] [address] [id number] [place] [address]- 9916 18 May, 2014 [facility] [place] [facility] [address] [id number] [place] [address]- 2548 16 May, 2014 [facility] [place] [facility] [address] [id number] [place] [address]- 4905 16 May, 2014 [facility] [place] [facility] [address] [facility] [id number] [place] [address]- 2326 13 May, 2014 [facility] [place] [facility] [address] [facility] [id number] [place] [address]- 5948 13 May, 2014 [facility] [place] [facility] [address] [id number] [place] [address]- 9386 10 May, 2014 [facility] [place] [facility] [address] [facility] [id number] [place] [address]- 7754 10 May, 2014 [facility] [place] [facility] [address] [facility] [id number] [place] [address]- 2482 Apr, [facility] [place] [facility] [address] [facility] [id number] [place] [address]- 5483 Apr, [facility] [place] [facility] [address] [id number] [place] [address]- 1859 Mar, [facility] [place] [facility] [address] [id number] [place]- 2186 Mar, [facility] [place] [facility] [address] [facility] [id number] [place] 8256 Mar, [facility] [place] [facility] [address] [facility] [id number] [place] [address]- 1651 Mar, [facility] [place] [facility] [address] [id number] [place] [address]- 2538 15 Mar, 2014 [facility] [place] [facility] [address] [id number] [place] [address]- 6031 15 Mar, 2014 [facility] [place] [facility] [address] [id number] [place] [address]- 0956 Mar, [facility] [place] [facility] [address] [id number] [place] [address]- 4671 Feb, [facility] [place] [facility] [address] [id number] [place] [address]- 7444 Feb, [facility] [place] [facility] [address] [id number] [place] [address]- 6662 Feb, [facility] [place] [facility] [address] [id number] [place] [address]- 5366 Jan, [facility] [place] [facility] [address] [id number] [place] [address]- 6537 Jan, [facility] [place] [facility] [address] [id number] [place] [address]- 7536 Jan, [facility] [place] [facility] [address] [id number] [place] [address]- 2857 Jan, [facility] [place] [facility] [address] [id number] [address]- 5407 Jan, [facility] [place] [facility] [address] [id number] [place] [address]- 3629 Jan, [facility] [place] [facility] [address] [id number] [place] [address]- 0706 Jan, [facility] [place] [facility] [address] [id number] [place] [address]- 8310 Jan, [facility] [place] [facility] [address] [id number] [place] [address]- 0863 Jan, [facility] [place] [facility] [address] [id number] [place] [address]- 4794 Jan, [facility] [place] [facility] [address] [id number] [place] [address]- 4830 Nov, [facility] [place] [facility] [address] [id number] [place] [address]- 1711 Nov, [facility] [place] [facility] [address] [id number] [place] [address]- 8890 Nov, [facility] [place] [facility] [address] [id number] [place] [address]- 9249 Oct, [facility] [place] [facility] [address] [id number] [place] [address]- 6750 Oct, [facility] [place] [facility] [address] [id number] [place] [address]- 1886 Oct, [facility] [place] [facility] [address] [id number] [place] [address]- 6730 Oct, [facility] [place] [facility] [address] [id number] [place] [address]- 8157 Oct, [facility] [place] [facility] [address] [id number] [place] [address]- 0241 Oct, [facility] [place] [facility] [address] [id number] [place] [address]- 4787 Oct, [facility] [place] [facility] [address] [id number] [place] [address]- 0078 Oct, [facility] [place] [facility] [address] [id number] [place] [address]- 2540 Oct, [facility] [place] [facility] [address] [id number] [place] [address]- 3167 Sep, [facility] [place] [facility] [address] [id number] [place] [address]- 0270 Sep, [facility] [place] [facility] [address] [id number] [place] [address]- 4691 Sep, [facility] [place] [facility] [address] [id number] [place] [address]- 1857 Sep, [facility] [place] [facility] [address] [id number] [place] [address]- 8131 Sep, [facility] [place] [facility] [address] [id number] [place] [address]- 4700 Sep, [facility] [place] [facility] [address] [id number] [place] [address]- 9585 Sep, [facility] [place] [facility] [address] [id number] [place] [address]- 0154 Sep, [facility] [place] [facility] [address] [id number] [place] [address]- 7316 Sep, [facility] [place] [facility] [address] [id number] [place] [address]- 7533 August, [facility] [place] [facility] [address] [id number] [place] [address]- 0993 August, [facility] [place] [facility] [address] [id number] [place] [address]- 5260 August, [facility] [place] [facility] [address] [id number] [place] [address]- 8618 August, [facility] [place] [facility] [address] [id number] [place] [address]- 0511 August, [facility] [place] [facility] [address] [id number] [place] [address]- 3775 August, [facility] [place] [facility] [address] [id number] [place] [address]- 6611 Jul, [facility] [place] [facility] [address] [id number] [place] [address]- 6291 Jul, [facility] [place] [facility] [address] [id number] [place] [address]- 7451 Jul, [facility] [place] [facility] [address] [id number] [place] [address]- 4542 08 Jul, 2013 [facility] [place] [facility] [address] [id number] [place] [address]- 2522 Jul, [facility] [place] [facility] [address] [id number] [place] 6980 Jul, [facility] [place] [facility] [address] [id number] [place] [address]- 6345 Jun, [facility] [place] [facility] [address] [id number] [place] [address]- 0322 Jun, [facility] [place] [facility] [address] [id number] [place] [address]- 4611 May, [facility] [place] [facility] [address] [id number] [place] [address]- 1521 May, [facility] [place] [facility] [address] [id number] [place] [address]- 4320 May, [facility] [place] [facility] [address] [id number] [place] [address]- 2390 May, [facility] [place] [facility] [address] [id number] [place] [address]- 4041 Apr, [facility] [place] [facility] [address] [id number] [place] [address]- 5308 Apr, [facility] [place] [facility] [address] [id number] [place] [address]- 7595 18 Mar, 2013 [facility] [place] [facility] [address] [id number] [place] [address]- 9711 18 Mar, 2013 [facility] [place] [facility] [address] [id number] [place] [address]- 8455 17 Mar, 2013 [facility] [place] [facility] [address] [id number] [place] [address]- 1225 17 Mar, 2013 [facility] [place] [facility] [address] [id number] [place] [address]- 9180 05 Mar, 2013 [facility] [place] [facility] [address] [id number] [place] [address]- 5345 05 Mar, 2013 [facility] [place] [facility] [address] [id number] [place] [address]- 4458 Feb, [facility] [place] [facility] [address] [id number] [place] [address]- 7370 Feb, [facility] [place] [facility] [address] [id number] [place] [address]- 2617 Feb, [facility] [place] [facility] [address] [id number] [place] [address]- 5932 Feb, [facility] [place] [facility] [address] [id number] [place] [address]- 5410 Feb, [facility] [place] [facility] [address] [id number] [place] [address]- 0137 Feb, [facility] [place] [facility] [address] [id number] [place] [address]- 1645 Jan, [facility] [place] [facility] [address] [id number] [place] [address]- 8702 Jan, [facility] [place] [facility] [address] [id number] [place] [address]- 0942 Jan, [facility] [place] [facility] [address] [id number] [place] 0442 Jan, [facility] [place] [facility] [address] [id number] [place] [address]- 6389 08 Jan, 2013 [facility] [place] [facility] [address] [id number] [place] [address]- 0493 Jan, [facility] [place] [facility] [address] [id number] [place] [address]- 8506 Dec, [facility] [place] [facility] [address] [id number] [place] [address]- 2546 09 Dec, 2012 [facility] [place] [facility] [address] [id number] [place] [address]- 5243 Nov, [facility] [address] [id number] [place] [address]- 0456 Nov, [facility] [place] [facility] [address] [id number] [place] [address]- 4390 Oct, [facility] [place] [facility] [address] [id number] [place] [address]- 2495 Oct, [facility] [place] [facility] [address] [id number] [place] [address] Oct, [facility] [address] [id number] [place] [address] Oct, [facility] [place] [facility] [address] [id number] [place] [address] Oct, [facility] [place] [facility] [address] [id number] [place] [address] Oct, [facility] [place] [facility] [address] [id number] [place] [address] Sep, [facility] [place] [facility] [address] [id number] [place] [address] Sep, [facility] [place] [facility] [address] [id number] [place] [address] Sep, [facility] [place] [facility] [address] [id number] [place] [address] Sep, [facility] [place] [facility] [address] [id number] [place] [address] August, [facility] [place] [facility] [address] [id number] [place] [address] August, [facility] [place] [facility] [address] [id number] [place] [address] August, [facility] [place] [facility] [address] [id number] [place] [address] August, [facility] [place] [facility] [address] [id number] [place] [address] August, [facility] [address] [id number] [place] [address] Jul, [facility] [address] [id number] [place] [address] Jul, [facility] [address] [id number] [place] [address] Jul, [facility] [address] [id number] [place] [address]- [address] Jul, [facility] [address] [id number] [place] [address] Jul, [facility] [address] [id number] [place] [address] Jul, [facility] [address] [id number] [place] [address] Jul, [facility] [address] [id number] [place] [address]- [address] Jul, [facility] [address] [id number] [place] [address]- [address] Jul, [facility] [address] [id number] [place] [address] Jul, [facility] [address] [id number] [id number] Jun, [facility] [address] [id number] [place] [address]- [address] Jun, [facility] [place] [facility] [address] [id number] [place] [address] Jun, [facility] [place] [facility] [address] [id number] [place] [address] Jun, [facility] [place] [facility] [address] [id number] [place] [address] Jun, [facility] [place] [facility] [address] [id number] [place] [address]- [address] 28 May, 2012 [facility] [address] [id number] [place] [address] 18 May, 2012 [facility] [place] [facility] [address] [id number] [place] [address] May, [facility] [address] [id number] [place] [address]16 Apr, [facility] [place] [facility] [address] [id number] [place] [address] Apr, [facility] [address] [id number] [place] [address] Apr, [facility] [place] [facility] [address] [id number] [place] [address]- [address] Apr, [facility] [address] [id number] [place] [address] Apr, [facility] [address] [id number] [place] [address] Apr, [facility] [address] [id number] [place] [address] Mar, [facility] [address] [id number] [place] [address] Mar, [facility] [place] [facility] [address] [id number] [place] [address] Mar, [facility] [place] [facility] [address] [id number] [place] [address] Mar, [facility] [place] [facility] [address] [id number] [place] [address] Feb, [facility] [place] [facility] [address] [id number] [place] [address] Feb, [facility] [place] [facility] [address] [id number] [place] [address] Feb, [facility] [place] [facility] [address] [id number] [place] [address] Feb, [facility] [place] [facility] [address] [id number] [place] [address] Feb, [facility] [place] [facility] [address] [facility] [id number] [place] [address]- [address] Feb, [facility] [facility] [address] [id number] [place] [address] Feb, [facility] [place] [facility] [address] [id number] [place] [address] Feb, [facility] [place] [facility] [address] [id number] [place] [address] Feb, [facility] [place] [facility] [address] [facility] [id number] [place] [address] Feb, [facility] [place] [facility] [address] [id number] [place] [address] Feb, [facility] [address] [id number] [place] [address] Feb, [facility] [place] [facility] [address] [facility] [id number] [place] [address] Feb, [facility] [address] [facility] [id number] [place] [address] Feb, [facility] [facility] [address] [id number] [place] [address] Feb, [facility] [address] [id number] [place] [address] Feb, [facility] [address] [facility] [id number] [place] [address] Jan, [facility] [address] [facility] [id number] [place] [address] Jan, [facility] [place] [facility] [address] [id number] [place] [address] 31 Jan, 2012 [facility] [address] [id number] [place] [address] 1994 31 Jan, 2011 [facility] [address] [id number] [place] [address] 30 Jan, 2012 [facility] [address] [id number] [place] [address] 117[address] 25 Jan, 2012 [facility] [facility] [address] [id number] [place] [address]646 25 Jan, 2012 [facility] [place] [address] [id number] [place] [address] 3636 16 Jan, 2012 [facility] [address] [id number] [place] [address]- 7726 16 Jan, 2012 [facility] [address] [id number] [place] [address]- [address]75 15 Jan, 2012 [facility] [address] [id number] [place] [address] 15 Jan, 2012 [facility] [address] [id number] [place] [address] 289[address] Jan, [facility] [address] [facility] [id number] [place] [address]- [address] 26 Sep, 2011 [facility] [address] [id number] [place] [address] 2546 26 Sep, 2011 [facility] [address] [id number] [place] [address]- 2541 24 Sep, 2011 [facility] [address] [id number] [place] [address] 2546 23 Sep, 2011 [facility] [address] [facility] [id number] [place] [address]- [address]46 22 Sep, 2011 [facility] [address] [id number] [place] [address]- 2544 21 Sep, 2011 [facility] [address] [id number] [place] [address]- 1051 20 Dec, 2011 [facility] [address] [id number] [place] [address]- 6286 Dec, 2011 [facility] [address] [id number] [place] [address]- 0986 07 Dec, 2011 [facility] [address] [id number] [place] [address]- 9836 06 Dec, 2011 [facility] [address] [id number] [place] [address] 3[address] 06 Dec, 2011 [facility] [address] [id number] [place] [address]- 0917 05 Dec, 2011 [facility] [address] [id number] [place] [address]491 Nov, [facility] [address] [id number] [place] [address] 4358 Nov, [facility] [address] [id number] [place] [address]- 4843 Nov, [facility] [address] [id number] [place] [address]- 5[address] Nov, [facility] [address] [id number] [place] [address] 3053 Nov, [facility] [address] [id number] [place] [address]- 0169 Nov, [facility] [address] [id number] [place] [address]- 5274 Nov, [facility] [address] [id number] [place] [address] 1993 Nov, [facility] [address] [id number] [place] [address] 8514 Oct, [facility] [address] [id number] [place] [address]- 2546 Oct, [facility] [address] [id number] [place] [address] 9492 Oct, [facility] [address] [id number] [place] [address]- 3466 Oct, [facility] [address] [id number] [place] [address]- 3836 Oct, [facility] [address] [id number] [place] [address]- 3207 Oct, [facility] [address] [id number] [place] [address]- 1678 Oct, [facility] [address] [id number] [place] [address]- 3058 Sep, [facility] [address] [id number] [place] [address]- 5671 Sep, [facility] [address] [id number] [place] [address]- 9336 August, [facility] [address] [id number] [place] [address]- 5597 August, [facility] [address] [id number] [place] [address]- 0250 August, [facility] [address] [id number] [place] [address]- 3212 August, [facility] [address] [id number] [place] [address]- 1378 Jul, [facility] [address] [id number] [place] [address] 7012 Jul, [facility] [address] [id number] [place] [address]- 9765 Jul, [facility] [address] [id number] [place] [address]- 2542 Jul, [facility] [address] [id number] [place] [address]- 8101 04 Jul, 2011 [facility] [address] [id number] [place] [address]- 5593 Jul, [facility] [address] [id number] [place] [address]- 5216 Jul, [facility] [address] [id number] [place] [address]- 7087 Jul, [facility] [address] [id number] [place] [address]- 2120 Jul, [facility] [address] [id number] [place] [address]- 2535 23 Jun, 2011 [facility] [address] [id number] [place] [address]- 2208 Jun, [facility] [address] [id number] [place] [address]- 6419 15 Jun, 2011 [facility] [address] [id number] [place] [address]- 7389 14 Jun, 2011 [facility] [address] [id number] [place] [address]- 5786 Jun, [facility] [address] [id number] [place] [address]- 6507 Jun, [facility] [address] [id number] [place] [address]- 6508 Jun, [facility] [address] [id number] [place] [address]- 2432 May, [facility] [address] [id number] [place] [address]- 6923 24 May, 2011 [facility] [address] [id number] [place] [address]- 0166 16 May, 2011 [facility] [address] [id number] [place] [address]- 5100 16 May, 2011 [facility] [address] [id number] [place] [address]- 1795 May, [facility] [address] [id number] [place] [address]- 5756 Apr, [facility] [address] [id number] [place] [address] 2546 Apr, [facility] [address] [id number] [place] [address]- 6946 Apr, [facility] [address] [id number] [place] [address]- 3814 Apr, [facility] [address] [id number] [place] [address]- 2616 Apr, [facility] [address] [id number] [place] [address]- 6386 Mar, [facility] [address] [id number] [place] [address]- 2446 Mar, [facility] [address] [id number] [place] [address]- 0792 Mar, [facility] [address] [id number] [place] [address]- 2802 Mar, [facility] [address] [id number] [place] [address]- 9756 Mar, [facility] [address] [id number] [place] [address]- 9641 Mar, [facility] [address] [id number] [place] [address]- 5968 Mar, [facility] [address] [id number] [place] [address]- 3073 Feb, [facility] [address] [id number] [place] [address]- 2546 Feb, [facility] [address] [id number] [place] [address]- 2153 08 Feb, 2011 [facility] [address] [id number] [place] [address]- 4166 Feb, [facility] [address] [id number] [place] [address] Jan, [facility] [address] [id number] [place] [address]- 9903 Jan, [facility] [address] [id number] [place] [address]- 5611 Jan, [facility] [address] [id number] [place] [address]- 8277 Jan, [facility] [address] [id number] [place] [address]- 2228 Nov, [facility] [address] [id number] [place] [address]- 9144 Mar, [facility] [address] [id number] [place] [address]- 1524 Mar, [facility] [address] [id number] [place] [address]- 2550 Mar, [facility] [address] [facility] [id number] [place] [address]- 7422 Mar, [facility] [address] [id number] [place] [address] 2546 Mar, [facility] [address] [id number] [place] [address]- 2549 Mar, [facility] [address] [id number] [place] [address]- 9790 Feb, [facility] [address] [id number] [place] [address] 2543 Feb, [facility] [address] [id number] [place] [address]- 3531 Jan, [facility] [address] [facility] [id number] [place] [address]- 9662 Jan, [facility] [address] [facility] [id number] [place] [address]- 4203 Jan, IMMUNIZATIONS No Known Immunizations SOCIAL HISTORY Never Assessed 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
--- OUTSIDE RECORDS SUMMARY | 2018-05-29 07:53 | XMS REPORT ---
Author Author KEIRA FORD [facility] Address [address] [place] [address] Care Team Providers Care Gluing Machine Feeder Name Role Phone KEIRA FORD Unavailable PROBLEMS Type Condition ICD9-CM Code MNV15-SZ Code Onset Dates Condition Status SNOMED Code Problem Low back pain M54.5 Active 279552055 Problem Abnormal chest CT R93.8 Active 786519233 Problem Dysthymic disorder F34.1 Active 30374204 Problem Generalized anxiety disorder F41.1 Active 18007762 Problem Coronary artery disease involving [place] tribe coronary artery of [place] tribe heart, angina presence unspecified I25.10 Active 0153884914798 Problem Restless leg G25.81 Active 41520065 Problem Hypothyroid E03.9 Active 01912319 Problem Insomnia G47.00 Active 214130452 Problem Asthma J45.909 Active 971886812 Problem Chronic kidney disease, unspecified N18.9 Active 529814446 Problem Palpitations R00.2 Active 28084136 Problem Anemia in chronic kidney disease D63.1 Active 326886839991196 Problem Depressed F32.9 Active 45014060 Problem Bipolar disorder, current episode manic without psychotic features F31.10 Active 244084457 Problem Primary osteoarthritis of left knee M17.12 Active 927726269 Problem Degenerative tear of medial meniscus of left knee M23.204 Active 987299218 Problem Chronic pain syndrome G89.4 Active 520901564 Problem Restless leg syndrome G25.81 Active 53323519 Problem History of colon polyps Z86.010 Active 060362753 Problem Functional 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 Active 32217520 Problem Chronic kidney disease, stage 4 (severe) N18.4 Active 850126235 Problem Stage 3 chronic kidney disease N18.3 Active 995974414 Problem Mood disorder F39 Active 65105122 Problem Seasonal allergic rhinitis due to pollen J30.1 Active 42697435 Problem Body mass index (BMI) of 40.0-44.9 in adult Z68.41 Active 343367154 Problem Other seasonal allergic rhinitis J30.2 Active 248862885 Problem Long-term use of high-risk medication Z79.899 Active 818926437 Problem Hypokalemia E87.6 Active 99745538 Problem Asthma with acute exacerbation in adult J45.901 Active 412088399 Problem History of anemia Z86.2 Active 663593204 Problem Vitamin D deficiency E55.9 Active 14639609 Problem Essential (primary) hypertension I10 Active 03730898 Problem Fibromyalgia M79.7 Active 589875345 Problem Mixed stress and urge urinary incontinence N39.46 Active 755371444 ALLERGIES No Information ENCOUNTERS Encounter Location Date Diagnosis [place] [address] [address]43 Jan, [place] [address] 96752- 9878 Nov, [place] [address] 22698- 2057 Nov, [place] [address] 08216- 0997 Nov, [place] [address] 45515- 3818 Nov, Fibromyalgia M79.7 ; Vision changes H53.9 ; Chest wall pain R07.89 and Chronic pain syndrome G89.4 [place] [address] 55330- 9988 Nov, [place] [address] 39557- 8711 Nov, Rash of hands R21 [place] [address] 20987- 9381 Nov, Generalized anxiety disorder F41.1 and Major depressive disorder, recurrent episode with anxious distress F33.9 [place] [address] 94346- 6049 Nov, Fibromyalgia M79.7 [place] [address] [place] [id number] [place] [address] 33146- 7085 Nov, Complicated UTI (urinary tract infection) N39.0 [facility] [place] [address] [place] [id number] [place] [address] 22698- 0407 Oct, [facility] [place] [address] [place] [id number] [place] [address] 95195- 8235 Oct, Generalized anxiety disorder F41.1 and Major depressive disorder, recurrent episode with anxious distress F33.9 [place] [address] [place] [id number] [place] [address] 05473- 2691 Oct, [place] [address] 13228- 5465 Oct, Fibromyalgia M79.7 [place] [address] [place] [id number] [place] [address] 64852- 2603 Sep, Restless leg syndrome G25.81 and Restless leg G25.81 [place] [address] [place] [id number] [place] [address] 93940- 3544 Sep, [place] [address] [place] [id number] [place] [address] 51991- 6834 Sep, Seasonal allergic rhinitis due to pollen J30.1 ; Screening for breast cancer Z12.31 ; Chest pain at rest R07.9 ; Restless leg syndrome G25.81 ; Essential (primary) hypertension I10 and Depressed F32.9 [place] [address] [place] [id number] [place] [address] 13280- 5853 August, Fibromyalgia M79.7 [place] [address] [place] [id number] [place] [address] 71522- 2165 August, [place] [address] [place] [id number] [place] [address] 16340- 0994 August, [place] [address] [place] [id number] [place] [address] 88458- [address] August, [address] R93.8 [place] [address] [place] [id number] [place] [address] 44999- 7644 August, Generalized anxiety disorder F41.1 and Major depressive disorder, recurrent episode with anxious distress F33.9 [place] [address] 14147- 8107 August, Abnormal chest CT R93.8 [place] [address] 86741- 9415 Jul, [place] [address] 49054- 3218 Jul, Chronic kidney disease, stage 4 (severe) N18.4 [place] [address] 80284- 4096 Jul, [place] [address] 04084- 5458 Jul, Restless leg G25.81 ; Mixed stress and urge urinary incontinence N39.46 and Fibromyalgia M79.7 [place] [address] [place] [id number] [place] [address] 57005- 2853 Jul, Chronic kidney disease, stage 4 (severe) N18.4 [place] [address] [place] [id number] [place] [address] 36438- 6458 Jun, Orthostatic hypotension I95.1 ; Chronic kidney disease, stage 4 (severe) N18.4 ; Chest wall discomfort R07.89 and Body mass index (BMI) of 40.0-44.9 in adult Z68.41 [place] [address] [place] [id number] [place] [address] 03539- 4170 Jun, [place] [address] 42606- 6325 Jun, Orthostatic hypotension I95.1 [place] [address] [place] [id number] [place] [address] 15698- 8704 Jun, [facility] [address] 40281 -5040 Jun, Orthostatic hypotension I95.1 ; Dysuria R30.0 and Acute cystitis without hematuria N30.00 [facility] [place] [address] [place] [id number] [place] [address] 91849- 0766 Jun, [facility] [place] [address] [place] [id number] [place] [address] 01783- 2806 Jun, Chronic kidney disease, stage 4 (severe) N18.4 [facility] [place] [address] [place] [id number] [place] [address] 77683 2546 Jun, Fibromyalgia M79.7 [facility] [place] [address] [place] [id number] [place] [address] 85856- 7426 Jun, [facility] [place] [address] [place] [id number] [place] [address] 46668- 4253 Jun, [facility] [place] [address] [place] [id number] [place] [address] 84126- [address] May, [address] R93.8 and Stage 3 chronic kidney disease N18.3 [facility] [place] [address] [place] [id number] [place] [address] 22034- 2979 May, Chronic kidney disease, stage 4 (severe) N18.4 [facility] [place] [address] [place] [id number] [place] [address] 25660- 3572 May, Chronic kidney disease, stage 4 (severe) N18.4 [facility] [place] [id number] [place] [address] 57192- [address] May, [address] R93.8 [facility] [place] [address] [place] [id number] [place] [address] 72370 2546 May, [facility] [place] [address] [place] [id number] [place] [address] 17998- 3996 May, [facility] [place] [address] [place] [id number] [place] [address] 85461- 9150 May, Generalized anxiety disorder F41.1 and Major depressive disorder, recurrent episode with anxious distress F33.9 [facility] [place] [id number] [place] [address] 49627- 0756 May, Mood disorder F39 [facility] [place] [id number] [place] [address] 85589- 9574 Apr, [facility] [place] [address] [place] [id number] [place] [address] 78541- 5713 Apr, Infected skin lesion L08.9 and Muscle strain of right shoulder region, initial encounter S46.911A [place] [address] [place] [id number] [place] [address] 01298- 4313 Apr, Generalized anxiety disorder F41.1 and Major depressive disorder, recurrent episode with anxious distress F33.9 [place] [address] [place] [id number] [place] [address] 26295- 6288 Apr, [facility] [place] [address] [place] [id number] [place] [address] 45518- 0179 Apr, Recent urinary tract infection Z87.440 and Hypothyroid E03.9 [place] [address] [place] [id number] [place] [address] 98941- 9795 Apr, Generalized anxiety disorder F41.1 and Major depressive disorder, recurrent episode with anxious distress F33.9 [place] [id number] [place] [address] 24151- 3048 Apr, Recent urinary tract infection Z87.440 [facility] [place] [id number] [place] [address] 68899- 4743 Mar, [facility] [address] [place] [id number] [place] [address] 83858 -5967 Mar, Dysuria R30.0 ; Acute cystitis without hematuria N30.00 and BMI 40.0-44.9, adult Z68.41 [facility] [place] [id number] [place] [address] 12252- 4373 Mar, [facility] [place] [address] [place] [id number] [place] [address] 79260- 9909 Mar, [place] [address] 36002- 2271 Mar, Generalized anxiety disorder F41.1 and Major depressive disorder, recurrent episode with anxious distress F33.9 [place] [address] 21726- 0632 Feb, Conjunctivitis, bacterial H10.9 [place] [address] 87167- 1663 Feb, [facility] [address] 69921 -7952 Feb, Conjunctivitis, bacterial H10.9 [place] [address] 52900- 5249 Feb, [facility] [address] 12640 -6539 Feb, Dysuria R30.0 ; Acute cystitis N30.00 and BMI 40.0-44.9, adult Z68.41 [place] [address] 08786- 6343 Feb, [place] [address] 55252- 9521 Feb, Generalized anxiety disorder F41.1 and Major depressive disorder, recurrent episode with anxious distress F33.9 [place] [address] [place] [id number] [place] [address] 60685- 0809 Feb, Mood disorder F39 and BMI 40.0-44.9, adult Z68.41 [place] [address] 26333- 4101 Jan, [place] [address] 20647- 7719 Jan, [place] [address] [place] [address]- 2176 Jan, Hypothyroid E03.9 [place] [address] 32677- 3551 Jan, [place] [address] 94971- 4388 Jan, Chronic kidney disease, unspecified N18.9 ; Hypokalemia E87.6 ; Essential (primary) hypertension I10 ; Fibromyalgia M79.7 ; Coronary artery disease involving [place] tribe coronary artery of [place] heart, angina presence unspecified I25.10 ; Hypothyroid E03.9 and Encounter for immunization Z23 [place] [address] 14588- 1836 Jan, Hypothyroid E03.9 [place] [address] 05407- 2903 Jan, [place] [address] 85853- 7108 Dec, Vitamin D deficiency E55.9 [place] [address] 29383- 6401 Dec, Primary osteoarthritis of left knee M17.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 [place] [address] 40587- 8839 19 Dec, 2016 Fibromyalgia M79.7 [place] [address] 58897- 3088 18 Dec, 2016 Mood disorder F39 [place] [address] 01929- 0945 13 Dec, 2016 [place] [address] 05273- 9168 13 Dec, 2016 Generalized anxiety disorder F41.1 and Major depressive disorder, recurrent episode with anxious distress F33.9 [place] [address] 28418- 0009 11 Dec, 2016 [facility] [place] [address] [address]- 6335 08 Dec, 2016 Streptococcal meningitis G00.2 [facility] [place] [id number] [place] [address] 32665- 7468 07 Dec, 2016 Streptococcal meningitis G00.2 [facility] [place] [id number] [place] [address] 19415- 7429 07 Dec, 2016 [facility] [place] [id number] [place] [address] 40932- 3760 Dec, Streptococcal meningitis G00.2 [facility] [place] [id number] [place] [address] 81073- 7168 Dec, [facility] [place] [address] [place] [id number] [place] [address] 17713- 2445 Dec, Major depressive disorder, recurrent episode with anxious distress F33.9 [facility] [place] [id number] [place] [address] 72946- 3700 Nov, Fever, unspecified fever cause R50.9 [facility] [place] [id number] [place] [address] 58219- 9709 Nov, [facility] [place] [id number] [place] [address] 42417- 9190 Nov, Hypothyroid E03.9 [facility] [place] [id number] [place] [address] 34142- 5549 Nov, Generalized anxiety disorder F41.1 and Major depressive disorder, recurrent episode with anxious distress F33.9 [facility] [place] [id number] [place] [address] 93244- 3034 Nov, [facility] [address] [place] [address] [id number] Oct, Dental examination Z01.20 [facility] [place] [address] [place] [address] 39274- 6401 Oct, Generalized anxiety disorder F41.1 and Major depressive disorder, recurrent episode with anxious distress F33.9 [place] [address] [address]- 4463 Oct, Chronic kidney disease, stage 4 (severe) N18.4 [place] [address] [address]- 5976 Oct, [place] [address] [place] [id number] [place] [address] 52892- 1311 Oct, Fibromyalgia M79.7 [place] [id number] [place] [address] 95761- 5081 Oct, [place] [address] [place] [address] 41368- 5606 Oct, Generalized anxiety disorder F41.1 ; Major depressive disorder, recurrent episode with anxious distress F33.9 and Bipolar disorder, current episode manic without psychotic features F31.10 [place] [address] [address]- 1602 Sep, [place] [address] [address]- 2065 Sep, [place] [address] [address]- 8082 Sep, Vitamin D deficiency E55.9 [place] [address] [address]- 1463 Sep, Vitamin D deficiency E55.9 [place] [address] [address]- 254 Sep, [place] [address] [place] [id number] [address]- 0760 Sep, Chronic kidney disease, stage 4 (severe) N18.4 ; Hypothyroid E03.9 ; Restless leg G25.81 ; Fibromyalgia M79.7 ; Essential ( primary) hypertension I10 ; Vitamin D deficiency E55.9 ; Dyspepsia R10.13 ; Anemia in chronic kidney disease D63.1 ; Chronic kidney disease, unspecified N18.9 ; Coronary artery disease involving [place] coronary artery of [place] heart , angina presence unspecified I25.10 ; Screening breast examination Z12.39 and Low back pain M54.5 [place] [address] [place] [id number] [place] [address] 19933- 7507 August, Generalized anxiety disorder F41.1 and Major depressive disorder, recurrent episode with anxious distress F33.9 [place] [address] [place] [id number] [place] [address] 37373- 8141 August, Generalized anxiety disorder F41.1 and Major depressive disorder, recurrent episode with anxious distress F33.9 [place] [address] [place] [id number] [place] [address] 84816- 0867 August, Fibromyalgia M79.7 [place] [address] [place] [id number] [place] [address] 15294- 4476 Jul, Generalized anxiety disorder F41.1 and Major depressive disorder, recurrent episode with anxious distress F33.9 [place] [address] [place] [id number] [place] [address] 57945- 6085 Jul, Fibromyalgia M79.7 [place] [address] [place] [id number] [place] [address] 78429- 4881 Jul, Generalized anxiety disorder F41.1 [place] [address] [place] [id number] [place] [address] 73968- 5744 May, [place] [address] [place] [id number] [place] [address] 27898- 6221 May, Hypothyroid E03.9 [place] [address] [place] [id number] [place] [address] 74509- 4330 08 May, 2016 Chronic kidney disease, stage 4 (severe) N18.4 ; Hypothyroid E03.9 ; Restless leg G25.81 ; Fibromyalgia M79.7 ; Essential ( primary) hypertension I10 ; Vitamin D deficiency E55.9 ; Dyspepsia R10.13 ; Acute non-recurrent maxillary sinusitis J01.00 ; Anemia in chronic kidney disease D63.1 ; Chronic kidney disease, unspecified N18.9 and Coronary artery disease involving [place] coronary artery of [place] heart, angina presence unspecified I25.10 [facility] [place] [address] [place] [id number] [place] [address] 55987- 5899 02 May, 2016 Vitamin D deficiency, unspecified E55.9 [facility] [place] [address] [place] [id number] [place] [address] 67766- 0470 May, Generalized anxiety disorder F41.1 and Major depressive disorder, recurrent episode with anxious distress F33.9 [facility] [place] [address] [place] [id number] [place] [address] 15795- 2404 Apr, Pain in right knee M25.561 and Pain in left knee M25.562 [facility] [place] [address] [place] [id number] [place] [address] 73719- 9559 Apr, [facility] [place] [address] [place] [id number] [place] [address] 84307- 1169 Apr, [facility] [place] [id number] [place] [address] 84540- 2535 Apr, [facility] [place] [address] [place] [id number] [place] [address] 98468- 7850 Mar, Generalized anxiety disorder F41.1 and Major depressive disorder, recurrent episode with anxious distress F33.9 [facility] [place] [id number] [place] [address] 14722- 2595 Mar, Generalized anxiety disorder F41.1 and Major depressive disorder, recurrent episode with anxious distress F33.9 [facility] [place] [address] [address]- 4697 Mar, [facility] [place] [address] [id number] [place] [address] 20320- 5475 Mar, [facility] [place] [address] [id number] [place] [address] 85052- 2478 Mar, [facility] [place] [address] [place] [id number] [place] [address] 81377- 0900 Mar, Asthma J45.909 and Fibromyalgia M79.7 [place] [address] 75947 2546 Mar, Chronic kidney disease, stage 4 (severe) N18.4 ; Vitamin D deficiency E55.9 and Essential (primary) hypertension I10 [place] [address] 13044- 7483 Feb, [place] [address] 32338- 0045 Feb, Dysuria R30.0 ; Mixed stress and urge urinary incontinence N39.46 ; Fibromyalgia M79.7 and Chronic kidney disease, stage IV (severe) N18.4 [place] [address] 36053- 8009 Feb, Chronic kidney disease, stage 4 (severe) N18.4 [place] [address] 65550- 9457 Feb, Chronic kidney disease, stage 4 (severe) N18.4 [place] [address] 75588- 0859 Feb, [place] [address] 48423- 4767 Feb, Vitamin D deficiency, unspecified E55.9 [place] [address] [place] [id number] [place] [address] 02782- 9016 Jan, [facility] [place] [address] [address] Jan, [facility] [place] [address] [id number] Dec, [place] [address] [address] Dec, Chronic kidney disease, stage 4 (severe) N18.4 [facility] [place] [address] [place] [id number] [place] [id number] 28 Dec, 2015 Dysthymic disorder F34.1 and Generalized anxiety disorder F41.1 [facility] [place] [address] [place] [id number] [place] [address]- [address] Dec, [facility] [place] [address] [place] [id number] [place] [address]331- [address]32 Dec, [facility] [place] [address] [address] Dec, Dysthymic disorder F34.1 and Generalized anxiety disorder F41.1 [place] [address] [address] Dec, Dysuria R30.0 ; Chronic kidney disease, stage 4 (severe) N18.4 ; Hypertension I10 ; Dyspepsia R10.13 ; Yeast dermatitis B37.2 ; Palpitations R00.2 ; Hypothyroid E03.9 ; Functional 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 and Other seasonal allergic rhinitis J30.2 [facility] [address] [address] Dec, [facility] [address] [place] [id number] [place] [phone] Nov, Dysuria R30.0 and Stress incontinence N39.3 [facility] [place] [address] [place] [id number] [place] [address]- [address]283 Nov, [facility] [place] [address] [place] [id number] [place] [address] 71949- 4140 Nov, [facility] [place] [address] 98074- 3439 Nov, Osteoarthritis of knees, bilateral M17.0 [facility] [place] [id number] [place] [address] 30091- 5447 Nov, Dysthymic disorder F34.1 and Generalized anxiety disorder F41.1 [facility] [place] [id number] [place] [address] 15756- 4570 Nov, [facility] [place] [id number] [place] [address] 42517- 6751 Nov, [facility] [place] [id number] [place] [address] 34606- 9115 Nov, Urgency of urination R39.15 [facility] [place] [address] 81840- 8365 Nov, [facility] [place] [id number] [place] [address] 99590- 8882 Nov, Chronic kidney disease, stage 4 (severe) N18.4 [place] [id number] [place] [address] 16809- 2788 Oct, Hypertension I10 ; Coronary artery disease involving [place] tribe coronary artery of [place] tribe heart, angina presence unspecified I25.10 ; Palpitations R00.2 ; Hypothyroid E03.9 ; Right foot pain M79.671 ; Functional 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 and Other seasonal allergic rhinitis J30.2 [place] [id number] [place] [address] 21879- 3576 Oct, Dysthymic disorder F34.1 and Generalized anxiety disorder F41.1 [facility] [place] [id number] [place] [address] 25106- 3877 Sep, [facility] [place] [id number] [place] [address] 41364- 1190 Sep, [facility] [place] [id number] [place] [address] 63915- 4732 Sep, [facility] [place] [id number] [place] [address] 05164- 1217 Sep, [facility] [place] [id number] [place] [address] 45441- 2583 Sep, [facility] [place] [id number] [place] [address] 97904- 7756 27 Sep, 2015 Dysthymic disorder F34.1 and Generalized anxiety disorder F41.1 [place] [id number] [place] [address] 30108- 4043 16 Sep, 2015 Asthma with acute exacerbation in adult J45.901 ; Dysuria R30.0 ; Chronic kidney disease, stage 4 (severe) N18.4 and History of anemia Z86.2 [place] [address] 11491- 6750 2015 Generalized anxiety disorder F41.1 and Dysthymic disorder F34.[address] 85838- 9189 August, Screening breast examination Z12.39 and Acute recurrent maxillary sinusitis J01.01 [place] [id number] [place] [address] 04997- 6653 August, Osteoarthritis of knees, bilateral M17.0 [place] [id number] [place] [address] 44024- 0309 August, Chronic kidney disease, stage 4 (severe) N18.4 ; Acute non- recurrent maxillary sinusitis J01.00 ; Urinary problem R39.89 ; Bowel habit changes R19.4 ; Functional 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 and History of colon polyps Z86.010 [place] [id number] [place] [address] 11189- 8421 Jul, Dysthymic disorder F34.1 and Generalized anxiety disorder F41.1 [place] [id number] [place] [address] 54186- 5898 Jul, [place] [id number] [place] [address] 12752- 8825 Jul, Dysthymic disorder F34.1 ; Generalized anxiety disorder F41.1 and 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 [place] [id number] [place] [address] 28661- 4270 Jul, [id number] [address] 51[address] Jun, [facility] [place] [id number] [place] [address] 00411- 2037 Jun, [facility] [place] [id number] [place] [address] 70484- 1879 May, [facility] [place] [id number] [place] [address] 67282- 7163 May, Dysthymic disorder F34.1 and Generalized anxiety disorder F41.1 [facility] [place] [id number] [place] [address] 18197- 6622 Apr, Kidney disease N28.9 [facility] [place] [id number] [place] [address] 55988- 4478 Apr, Generalized anxiety disorder F41.1 and Dysthymic disorder F34.1 [place] [id number] [place] [address] 19260- 2828 Apr, Chronic kidney disease, stage 4 (severe) N18.4 [place] [id number] [place] [address] 60095- 5570 Apr, Generalized anxiety disorder F41.1 ; Major depression, recurrent F33.9 and Sleep disturbance G47.9 [place] [id number] [place] [address] 12652- 6856 Mar, Generalized anxiety disorder F41.1 and Dysthymic disorder F34.1 [place] [id number] [place] [address] 96476- 1259 Mar, Generalized anxiety disorder F41.1 ; Dysthymic disorder F34.1 and Insomnia G47.00 [place] [id number] [place] [address] 56876- 1900 Mar, [facility] [place] [id number] [place] [address] 53352- 8644 Mar, [facility] [place] [address] [place] [id number] [place] [address] 57583- 0089 17 Mar, 2015 Osteoarthritis of knees, bilateral M17.[address] 39880- 0867 Mar, Hypertension I10 ; Hypothyroid E03.9 ; Dysthymic disorder F34.1 ; Chronic kidney disease, stage 4 (severe) N18.4 and Nausea & vomiting R11.[address] 89978- 8016 Mar, Generalized anxiety disorder F41.1 ; Dysthymic disorder F34.1 and Insomnia G47.[address] 50893- 7737 Mar, Dehydration E86.0 ; Chronic kidney disease, stage 4 (severe ) N18.4 and Nausea & vomiting R11.2 [facility] [address] 37901 -2660 Mar, Gastroenteritis K52.[address] 86052- 5744 Mar, [address] 05765- 4745 Mar, [address] 36348- 0436 Feb, Dysthymic disorder F34.1 and Generalized anxiety disorder F41.1 [place] [id number] [place] [address] 92244- 0362 Jan, UTI (urinary tract infection) N39.0 ; Asthma J45.909 ; Coronary artery disease involving [place] tribe coronary artery of [place]sem[place] tribe heart, angina presence unspecified I25.10 ; Hypertension I10 ; Hypothyroid E03.9 ; Vitamin D deficiency E55.9 ; Insomnia G47.00 ; Palpitations R00.2 ; Depressed F32.9 ; Restless leg G25.81 and Anxiety F41.9 [place] [id number] [place] [address]- 5330 Jan, Dysthymic disorder F34.1 and Generalized anxiety disorder F41.1 [place] [address] 61885- 9894 Jan, [place] [id number] [place] [address] 01030- 4594 Dec, [place] [address] 81305- 9729 28 Dec, 2014 Alkalosis 276.3 ; Chronic kidney disease, 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.4 ; Hyperpotassemia 276.7 ; Secondary hyperparathyroidism, renal 588.81 ; Proteinuria 791.0 ; Unspecified vitamin D deficiency 268.9 ; Anemia in chronic kidney disease 285.21 ; Other and unspecified hyperlipidemia 272.4 ; Hypertension, essential, benign 401.1 and Chronic kidney disease (CKD), stage III (moderate) 585.3 [place] [address] 90867- 5771 Dec, [place] [address] 97722- 8648 Dec, Depressive disorder, not elsewhere classified 311 and Generalized anxiety disorder 300.02 [place] [id number] [place] [address] 76890- 8475 Dec, [place] [id number] [place] [address] 38042- 3315 08 Dec, 2014 [place] [id number] [place] [address] 20266- 7172 Nov, Depressive disorder, not elsewhere classified 311 and Generalized anxiety disorder 300.02 [place] [address] 89492- 8425 Nov, Arthritis of both knees 716.96 [place] [id number] [place] [address] 90782- 3903 07 Nov, 2014 PAF (paroxysmal atrial fibrillation) 427.31 ; CAD (coronary artery disease) 414.00 ; Chest pain 786.50 and Chronic kidney disease (CKD) stage G4/A1, severely decreased glomerular filtration rate (GFR) between 15-29 mL/min/1.73 square meter and albuminuria creatinine ratio less than 30 mg/g 585.4 [facility] [place] [address] [address]- 0432 Oct, Coronary atherosclerosis of unspecified type of vessel, nansem[place] ind[place] tribe or graft 414.00 ; Chronic kidney disease, 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.4 ; Hypertension 401.9 and Edema 782.3 [place] [id number] [place] [address] 25446- 9691 Oct, Depressive disorder, not elsewhere classified 311 and Generalized anxiety disorder 300.02 [place] [id number] [place] [address] 20631- 5619 Oct, Depressive disorder, not elsewhere classified 311 and Generalized anxiety disorder 300.02 [place] [id number] [place] [address] 77141- 3496 Oct, [place] [id number] [place] [address] 01465- 2602 Oct, [place] [id number] [place] [address] 21434- 6929 Sep, [place] [id number] [place] [address] 55463- 1379 Sep, Chronic kidney disease, 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.4 [place] [id number] [place] [address] 70404- 6072 Sep, [place] [id number] [place] [address] 86016- 2329 Sep, Coronary atherosclerosis of unspecified type of vessel, [place] tribe or graft 414.00 ; Hypertension 401.9 ; Edema 782.3 and Hypothyroidism 244.9 [place] [id number] [place] [address] 25774- 1276 Sep, Coronary atherosclerosis of unspecified type of vessel, [place]sem[place] or graft 414.00 ; Hypertension 401.9 ; Fibromyalgia 729.1 ; Edema 782.3 ; Hypothyroidism 244.9 and Anemia 285.9 [facility] [place] [address] 33621- 3859 Sep, Anxiety disorder, unspecified 300.00 and Depressive disorder , not elsewhere classified 311 [facility] [place] [address] 74057- 1987 Sep, [facility] [place] [address] 71141- 5288 August, Generalized anxiety disorder 300.02 [facility] [place] [address] 38772- 4392 August, Closed fracture of lateral malleolus 824.2 [facility] [place] [id number] [place] [address] 76130- 1839 Jul, [facility] [place] [address] 65014- 3513 Jul, [facility] [place] [id number] [place] [address] 25678- 6448 Jun, [facility] [place] [id number] [place] [address] 17170- 3507 Jun, [facility] [place] [id number] [place] [address] 51883- 4718 Jun, [facility] [place] [id number] [place] [address] 68033- 6269 Jun, [facility] [place] [id number] [place] [address] 89798- 6280 Jun, [facility] [place] [id number] [place] [address] 55749- 8966 Jun, [facility] [place] [id number] [place] [address] 37345- 6239 May, [facility] [place] [id number] [place] [address] 79102- 5320 19 May, 2014 [facility] [place] [facility] [address] [id number] [place] [address]- 6216 18 May, 2014 [facility] [place] [facility] [address] [id number] [place] [address]- 1756 18 May, 2014 [facility] [place] [facility] [address] [id number] [place] [address]- 8536 16 May, 2014 [facility] [place] [facility] [address] [id number] [place] [address]- 2546 16 May, 2014 [facility] [place] [facility] [address] [id number] [place] [address]- 4226 13 May, 2014 [facility] [place] [facility] [address] [facility] [place] [id number] [place] [address]- 8596 13 May, 2014 [facility] [place] [facility] [address] [facility] [place] [id number] [place] [address]- 1744 10 May, 2014 [facility] [place] [facility] [address] [id number] [place] [address]- 5465 10 May, 2014 [facility] [place] [facility] [address] [facility] [place] [id number] [place] [address]- 2301 Apr, [facility] [place] [facility] [address] [facility] [place] [id number] [place] [address]- 6633 Apr, [facility] [place] [facility] [address] [id number] [place] [address]- 6597 Mar, [facility] [place] [facility] [address] [id number] [place] [address]- 2544 Mar, [facility] [place] [facility] [address] [id number] [place] 1196 Mar, [facility] [place] [facility] [address] [id number] [place] [address]- 2546 Mar, [facility] [place] [facility] [address] [facility] [place] [id number] [place] [address]- 3524 Mar, [facility] [place] [facility] [address] [id number] [place] [address]- 5217 Mar, [facility] [place] [facility] [address] [id number] [place] [address]- 1963 Mar, [facility] [place] [facility] [address] [id number] [place] [address]- 7516 Feb, [facility] [place] [facility] [address] [id number] [place] [address]- 3546 Feb, [facility] [place] [facility] [address] [id number] [place] [address]- 8725 Feb, [facility] [place] [facility] [address] [id number] [place] [address]- 8942 Jan, [facility] [place] [facility] [address] [id number] [place] [address]- 0488 Jan, [facility] [place] [facility] [address] [id number] [place] [address]- 1067 Jan, [facility] [place] [facility] [address] [id number] [place] [address]- 8883 Jan, [facility] [place] [facility] [address] [id number] [place] [address]- 4463 Jan, [facility] [place] [facility] [address] [id number] [place] [address]- 9723 Jan, [facility] [place] [facility] [address] [id number] [address]- 9642 Jan, [facility] [place] [facility] [address] [id number] [place] [address]- 1781 Jan, [facility] [place] [facility] [address] [id number] [place] 5207 Jan, [facility] [place] [facility] [address] [id number] [place] 8601 Jan, [facility] [place] [facility] [address] [id number] [place] [address]- 3443 Nov, [facility] [place] [facility] [address] [id number] [place] [address]- 0907 Nov, [facility] [place] [facility] [address] [id number] [place] [address]- 8756 Nov, [facility] [place] [facility] [address] [id number] [place] [address]- 6932 Oct, [facility] [place] [facility] [address] [id number] [place] [address]- 0577 Oct, [facility] [place] [facility] [address] [id number] [place] [address]- 9174 Oct, [facility] [place] [facility] [address] [id number] [place] [address]- 8663 Oct, [facility] [place] [facility] [address] [id number] [place] [address]- 0464 Oct, [facility] [place] [facility] [address] [id number] [place] [address]- 2475 Oct, [facility] [place] [facility] [address] [id number] [place] [address]- 1946 Oct, [facility] [place] [facility] [address] [id number] [place] [address]- 9393 Oct, [facility] [place] [facility] [address] [id number] [place] [address]- 1594 Oct, [facility] [place] [facility] [address] [id number] [place] [address]- 1821 Sep, [facility] [place] [facility] [address] [id number] [place] [address]- 7265 Sep, [facility] [place] [facility] [address] [id number] [place] [address]- 3052 Sep, [facility] [place] [facility] [address] [id number] [place] [address]- 3730 Sep, [facility] [place] [facility] [address] [id number] [place] [address]- 9666 Sep, [facility] [place] [facility] [address] [id number] [place] [address]- 8604 Sep, [facility] [place] [facility] [address] [id number] [place] [address]- 7615 Sep, [facility] [place] [facility] [address] [id number] [place] [address]- 1060 Sep, [facility] [place] [facility] [address] [id number] [place] [address]- 5097 Sep, [facility] [place] [facility] [address] [id number] [place] [address]- 7314 August, [facility] [place] [facility] [address] [id number] [place] [address]- 8723 August, [facility] [place] [facility] [address] [id number] [place] [address]- 5904 August, [facility] [place] [facility] [address] [id number] [place] [address]- 5826 August, [facility] [place] [facility] [address] [id number] [place] [address]- 7476 August, [facility] [place] [facility] [address] [id number] [place] [address]- 2794 August, [facility] [place] [facility] [address] [id number] [place] [address]- 6101 Jul, [facility] [place] [facility] [address] [id number] [place] [address]- 0532 Jul, [facility] [place] [facility] [address] [id number] [place] [address]- 0687 Jul, [facility] [place] [facility] [address] [id number] [place] [address]- 8769 Jul, [facility] [place] [facility] [address] [id number] [place] [address]- 2170 Jul, [facility] [place] [facility] [address] [id number] [place] [address]- 7273 Jul, [facility] [place] [facility] [address] [id number] [place] [address]- 4438 Jun, [facility] [place] [facility] [address] [id number] [place] [address]- 0214 Jun, [facility] [place] [facility] [address] [id number] [place] [address]- 0944 May, [facility] [place] [facility] [address] [id number] [place] [address]- 0430 May, [facility] [place] [facility] [address] [id number] [place] [address]- 9030 May, [facility] [place] [facility] [address] [id number] [place] [address]- 0395 May, [facility] [place] [facility] [address] [id number] [place] [address]- 9660 Apr, [facility] [place] [facility] [address] [id number] [place] [address]- 7705 Apr, [facility] [place] [facility] [address] [id number] [place] [address]- 7299 Mar, [facility] [place] [facility] [address] [id number] [place] [address]- 7408 18 Mar, 2013 [facility] [place] [facility] [address] [id number], [place] [address]- 4090 17 Mar, 2013 [facility] [place] [facility] [address] [id number] [place] [address] Mar, [facility] [place] [facility] [address] [facility] [place] [id number] [place] [address] 05 Mar, 2013 [facility] [place] [facility] [address] [facility] [place] [id number] [place] [address] 05 Mar, 2013 [facility] [place] [facility] [address] [id number] [place] [address] Feb, [facility] [place] [facility] [address] [id number] [place] [address] Feb, [facility] [place] [facility] [address] [id number] [place] [address] Feb, [facility] [place] [facility] [address] [id number] [place] [address] Feb, [facility] [place] [facility] [address] [id number] [place] [address] Feb, [facility] [place] [facility] [address] [id number] [place] [address] Feb, [facility] [place] [facility] [address] [id number] [place] [address] Jan, [facility] [place] [facility] [address] [id number] [place] [address] Jan, [facility] [place] [facility] [address] [id number] [place] [address] Jan, [facility] [place] [facility] [address] [id number] [place] [address] Jan, [facility] [place] [facility] [address] [id number] [place] [address] Jan, [facility] [place] [facility] [address] [id number] [place] [address] Jan, [facility] [place] [facility] [address] [id number] [place] [address] 12 Dec, 2012 [facility] [place] [facility] [address] [id number] [place] [address] Dec, [facility] [place] [facility] [address] [id number] [place] [address] Nov, [facility] [place] [facility] [address] [id number] [place] [address] Nov, [facility] [address] [id number] [place] [address] Oct, [facility] [place] [facility] [address] [id number] [place] [address] Oct, [facility] [place] [facility] [address] [id number] [place] [address] Oct, [facility] [place] [facility] [address] [id number] [place] [address] Oct, [facility] [place] [facility] [address] [id number] [place] [address] Oct, [facility] [place] [facility] [address] [id number] [place] [address] Oct, [facility] [place] [facility] [address] [id number] [place] [address]- [address] Sep, [facility] [place] [facility] [address] [id number] [place] [address] Sep, [facility] [place] [facility] [address] [id number] [place] [address] Sep, [facility] [place] [facility] [address] [id number] [place] [address] Sep, [facility] [place] [facility] [address] [id number] [place] [address] August, [facility] [place] [facility] [address] [id number] [place] [address] August, [facility] [place] [facility] [address] [id number] [place] [address] August, [facility] [place] [facility] [address] [id number] [place] [address] 7099 August, [facility] [place] [facility] [address] [id number] [place] [address] August, [facility] [place] [facility] [address] [id number] [place] [address] Jul, [facility] [address] [id number] [place] [address] Jul, [facility] [address] [id number] [place] [address] Jul, [facility] [address] [id number] [place] [address] Jul, [facility] [address] [id number] [place] [address] Jul, [facility] [address] [id number] [place] [address] Jul, [facility] [address] [id number] [place] [address] Jul, [facility] [address] [id number] [place] [address] Jul, [facility] [address] [id number] [place] [address] Jul, [facility] [address] [id number] [place] [address] Jul, [facility] [address] [id number] [id number] Jun, [facility] [address] [id number], [place] [address] Jun, [facility] [place] [facility] [address] [id number], [place] [address] Jun, [facility] [address] [id number], [place] [address] Jun, [facility] [facility] [address] [id number] [place] [address] Jun, [facility] [address] [id number] [place] [address] May, [facility] [place] [facility] [address] [id number] [place] [address] 18 May, 2012 [facility] [address] [id number] [place] [address] May, [facility] [place] [facility] [address] [id number] [place] [address] Apr, [facility] [address] [id number] [place] [address] Apr, [facility] [address] [id number] [place] [address] Apr, [facility] [address] [id number] [place] [address] Apr, [facility] [address] [id number] [place] [address] Apr, [facility] [address] [id number] [place] [address] Apr, [facility] [address] [id number] [place] [address] Mar, [facility] [address] [id number] [place] [address] Mar, [facility] [address] [id number] [place] [address] Mar, [facility] [address] [id number] [place] [address] Mar, [facility] [address] [id number] [place] [address] Feb, [facility] [place] [address] [id number] [place] [address] Feb, [facility] [facility] [address] [id number] [place] [address] Feb, [facility] [address] [id number] [place] [address] Feb, [facility] [place] [facility] [address] [id number] [place] [address] Feb, [facility] [place] [facility] [address] [id number] [place] [address] Feb, [facility] [place] [address] [id number] [place] [address] Feb, [facility] [address] [id number] [place] [address]- [address]887 Feb, [facility] [place] [facility] [address] [id number] [place] [address]- 46[address] Feb, [facility] [place] [facility] [address] [id number] [place] [address] 7026 Feb, [facility] [facility] [address] [facility] [place] [id number] [place] [address] Feb, [facility] [address] [id number], [place] [address] Feb, [facility] [address] [id number] [place] [address] 36[address] Feb, [facility] [address] [facility] [place] [id number], [place] [address] Feb, [facility] [address] [id number], [place] [address]- [address] Feb, [facility] [address] [id number], [place] [address] Feb, [facility] [address] [id number], [place] [address]- [address] Jan, [facility] [address] [id number], [place] [address] Jan, [facility] [address] [facility] [place] [id number], [place] [address] Jan, [facility] [address] [id number] [place] [address] 31 Jan, 2012 [facility] [address] [id number] [place] [address] 30 Jan, 2012 [facility] [place] [address] [id number] [place] [address]- [address]26 25 Jan, 2012 [facility] [address] [id number] [place] [address]- [address]16 25 Jan, 2012 [facility] [address] [id number] [place] [address]- [address]076 16 Jan, 2012 [facility] [address] [id number] [place] [address]- 9168 16 Jan, 2012 [facility] [address] [id number] [place] [address]- [address] 15 Jan, 2012 [facility] [address] [id number] [place] [address]- 6[address] 15 Jan, 2012 [facility] [address] [id number] [place] [address] 66[address] Jan, [facility] [address] [id number] [place] [address]- [address]356 26 Sep, 2011 [facility] [address] [id number] [place] [address]- 2549 26 Sep, 2011 [facility] [address] [id number] [place] [address] 2546 24 Sep, 2011 [facility] [address] [id number] [place] [address] 2546 23 Sep, 2011 [facility] [address] [id number] [place] [address] 2546 22 Sep, 2011 [facility] [address] [id number] [place] [address]- 2546 21 Sep, 2011 [facility] [address] [id number] [place] [address]- 2545 20 Sep, 2011 [facility] [address] [id number] [place] [address]- 0272 20 Dec, 2011 [facility] [address] [id number] [place] [address]- 4166 07 Dec, 2011 [facility] [address] [id number] [place] [address]- [address]486 06 Dec, 2011 [facility] [address] [id number] [place] [address]- 7796 06 Dec, 2011 [facility] [address] [id number] [place] [address]- [address]69 05 Dec, 2011 [facility] [address] [id number] [place] [address]- 5791 23 Nov, 2011 [facility] [address] [id number] [place] [address]- 1355 17 Nov, 2011 [facility] [address] [id number] [place] [address]- 9693 13 Nov, 2011 [facility] [address] [id number] [place] [address]- 4312 Nov, [facility] [address] [id number] [place] [address]- 2278 Nov, [facility] [address] [id number] [place] [address]- 3159 Nov, [facility] [address] [id number] [place] [address]- 3859 Nov, [facility] [address] [id number] [place] [address]- 6336 Nov, [facility] [address] [id number] [place] [address]- 7517 Oct, [facility] [address] [id number] [place] [address]- 8841 Oct, [facility] [address] [id number] [place] [address]- 7526 Oct, [facility] [address] [id number] [place] [address]- 9926 Oct, [facility] [address] [id number] [place] [address]- 3623 Oct, [facility] [address] [id number] [place] [address]- 2228 Oct, [facility] [address] [id number] [place] [address]- 5119 Oct, [facility] [address] [id number] [place] [address]- 7048 Sep, [facility] [address] [id number] [place] [address]- 2122 Sep, [facility] [address] [id number] [place] [address]- 9604 August, [facility] [address] [id number] [place] [address]- 8680 August, [facility] [address] [id number] [place] [address]- 9014 August, [facility] [address] [id number] [place] [address]- 2594 August, [facility] [address] [id number] [place] [address]- 3322 Jul, [facility] [address] [id number] [place] [address]- 2560 Jul, [facility] [address] [id number] [place] [address]- 9628 Jul, [facility] [address] [id number] [place] [address]- 7303 Jul, [facility] [address] [id number] [place] [address]- 8778 Jul, [facility] [address] [id number] [place] [address]- 4905 04 Jul, 2011 [facility] [address] [id number] [place] [address]- 9716 Jul, [facility] [address] [id number] [place] [address]- 6616 Jul, [facility] [address] [id number] [place] [address]- 8479 Jul, [facility] [address] [id number] [place] [address]- 8432 23 Jun, 2011 [facility] [address] [id number] [place] [address]- 0008 19 Jun, 2011 [facility] [address] [id number] [place] [address]- 7607 15 Jun, 2011 [facility] [address] [id number] [place] [address]- 8494 14 Jun, 2011 [facility] [address] [id number] [place] [address]- 9169 12 Jun, 2011 [facility] [address] [id number] [place] [address]- 8030 Jun, [facility] [address] [facility] [place] [id number] [place] [address]- 7954 Jun, [facility] [address] [id number] [place] [address]- 5568 25 May, 2011 [facility] [address] [id number] [place] [address]- 4274 24 May, 2011 [facility] [address] [id number] [place] [address]- 2348 16 May, 2011 [facility] [address] [id number] [place] [address]- 8566 16 May, 2011 [facility] [address] [id number] [place] [address]- 1085 May, [facility] [address] [id number] [place] [address]- 8099 Apr, [facility] [address] [id number] [place] [address]- 5406 Apr, [facility] [address] [id number] [place] [address]- 4796 Apr, [facility] [address] [id number] [place] [address]- 8730 Apr, [facility] [address] [id number] [place] [address]- 6473 Apr, [facility] [address] [id number] [place] [address]- 1159 Mar, [facility] [address] [id number] [place] [address]- 3104 Mar, [facility] [address] [id number] [place] [address]- 2008 Mar, [facility] [address] [id number] [place] [address]- 1746 Mar, [facility] [address] [id number] [place] [address]- 2357 Mar, [facility] [facility] [address] [id number] [place] [address]- 4989 Mar, [facility] [address] [id number] [place] [address]- 4596 Mar, [facility] [address] [id number] [place] [address]- 9411 Feb, [facility] [address] [id number] [place] [address]- 5356 Feb, [facility] [address] [id number] [place] [address]- 9923 Feb, [facility] [address] [id number] [place] [address]- 2361 04 Feb, 2011 [facility] [facility] [address] [id number] [place] [address]- 7436 Jan, [facility] [facility] [address] [id number] [place] [address] 2546 Jan, [facility] [address] [id number] [place] [address] 2546 Jan, [facility] [address] [id number] [place] [address] 2546 Jan, [facility] [address] [id number] [place] [address]- 8057 Nov, [facility] [address] [id number] [place] [address]- 2367 Mar, [facility] [address] [id number] [place] [address]- 3604 Mar, [facility] [facility] [address] [id number] [place] [address] 2547 Mar, [facility] [address] [id number] [place] [address] 2546 Mar, [facility] [address] [facility] [place] [id number] [place] [address] 2542 Mar, [facility] [address] [id number] [place] [address] 2546 Mar, [facility] [address] [id number] [place] [address] 2542 Feb, [facility] [address] [id number] [place] [address] 2546 Feb, [facility] [address] [id number] [place] [address] 2546 Jan, [facility] [address] [id number] [place] [address] 2545 14 Jan, 2009 [facility] [address] [facility] [place] [id number] [place] [address]- 9541 14 Jan, 2009 IMMUNIZATIONS No Known Immunizations SOCIAL HISTORY Never Assessed REASON FOR VISIT f/u PLAN OF CARE Activity Details Follow Up prn Reason: VITAL SIGNS MEDICATIONS Unknown Medications RESULTS No Results PROCEDURES Procedure Date Ordered Result Body Site [facility] VISIT MENTAL HEALTH ESTAB PT October 31, 2017 Psychotherapy, patient &/family, 30 minutes, established patient October 31, 2017 INSTRUCTIONS MEDICATIONS ADMINISTERED No Known Medications [...] & 2007 Surgical History Bladder surgery [facility] 03/2016 Surgical History Neurotransmitter placed 10/2017 Hospitalization History Surgeries Only Hospitalization History 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
--- OUTSIDE RECORDS SUMMARY | 2018-05-29 07:54 | XMS REPORT ---
Author Author ARUNA HERNANDEZ Organization [facility] Address [address] [place] [address] Care Team Providers Care Client Account Assistant Name Role Phone ARUNA HERNANDEZ Unavailable PROBLEMS Type Condition ICD9-CM Code [id number] Code Onset Dates Condition Status SNOMED Code Problem Low back pain M54.5 Active 478567933 Problem Abnormal chest CT R93.8 Active 196811898 Problem Dysthymic disorder F34.1 Active 95693193 Problem Generalized anxiety disorder F41.1 Active 07698767 Problem Coronary artery disease involving [place] coronary artery of [place] heart, angina presence unspecified I25.10 Active 1753194990726 Problem Restless leg G25.81 Active 40062515 Problem Hypothyroid E03.9 Active 82521173 Problem Insomnia G47.00 Active 182451488 Problem Asthma J45.909 Active 148162851 Problem Chronic kidney disease, unspecified N18.9 Active 947122698 Problem Palpitations R00.2 Active 80107403 Problem Anemia in chronic kidney disease D63.1 Active 750851132954063 Problem Depressed F32.9 Active 99592171 Problem Bipolar disorder, current episode manic without psychotic features F31.10 Active 872085627 Problem Primary osteoarthritis of left knee M17.12 Active 592708476 Problem Degenerative tear of medial meniscus of left knee M23.204 Active 030408759 Problem Chronic pain syndrome G89.4 Active 435413010 Problem Restless leg syndrome G25.81 Active 76006232 Problem History of colon polyps Z86.010 Active 633429846 Problem Functional 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 Active 54344898 Problem Chronic kidney disease, stage 4 (severe) N18.4 Active 552501228 Problem Stage 3 chronic kidney disease N18.3 Active 867904147 Problem Mood disorder F39 Active 05516619 Problem Seasonal allergic rhinitis due to pollen J30.1 Active 76949102 Problem Body mass index (BMI) of 40.0-44.9 in adult Z68.41 Active 687281177 Problem Other seasonal allergic rhinitis J30.2 Active 069567570 Problem Long-term use of high-risk medication Z79.899 Active 164593518 Problem Hypokalemia E87.6 Active 62091374 Problem Asthma with acute exacerbation in adult J45.901 Active 634181478 Problem History of anemia Z86.2 Active 119065292 Problem Vitamin D deficiency E55.9 Active 64209105 Problem Essential (primary) hypertension I10 Active 19396862 Problem Fibromyalgia M79.7 Active 139200658 Problem Mixed stress and urge urinary incontinence N39.46 Active 353941653 ALLERGIES No Information ENCOUNTERS Encounter Location Date Diagnosis [place] [address] [address] Jan, [place] [address] [address]- [address]3 Nov, [place] [address] 96[address]- 5573 Nov, [place] [address] 35162- 4114 Nov, [place] [address] 07293- 3328 Nov, Fibromyalgia M79.7 ; Vision changes H53.9 ; Chest wall pain R07.89 and Chronic pain syndrome G89.4 [place] [address] [place] [id number] [place] [address] 38729- 5478 Nov, [place] [address] 16020- 9254 Nov, Rash of hands R21 [place] [address] 79016- 0918 15 Nov, 2017 Generalized anxiety disorder F41.1 and Major depressive disorder, recurrent episode with anxious distress F33.9 [place] [address] [place] [id number] [place] [address] 29880- 1053 Nov, Fibromyalgia M79.7 [place] [address] [place] [id number] [place] [address] 57669- 7378 Nov, Complicated UTI (urinary tract infection) N39.0 [place] [address] [place] [id number] [place] [address] 14262- 6424 Oct, [place] [address] [place] [id number] [place] [address] 57812- 8065 Oct, Generalized anxiety disorder F41.1 and Major depressive disorder, recurrent episode with anxious distress F33.9 [place] [address] [place] [id number] [place] [address] 37680- 6308 Oct, [place] [address] [place] [id number] [place] [address] 41306- 8436 Oct, Fibromyalgia M79.7 [place] [address] [place] [id number] [place] [address] 42517- 6832 Sep, Restless leg syndrome G25.81 and Restless leg G25.81 [place] [address] [place] [id number] [place] [address] 50045- 7525 Sep, [place] [address] [place] [id number] [place] [address] 26195- 0897 Sep, Seasonal allergic rhinitis due to pollen J30.1 ; Screening for breast cancer Z12.31 ; Chest pain at rest R07.9 ; Restless leg syndrome G25.81 ; Essential (primary) hypertension I10 and Depressed F32.9 [place] [id number] [place] [address] 19780- 8833 August, Fibromyalgia M79.7 [place] [id number] [place] [address] 62155- 5891 August, [place] [address] [place] [id number] [place] [address] 10873- 6602 August, [place] [id number] [place] [address] 66123- [address] August, [address] R93.8 [place] [address] [place] [id number] [place] [address] 98761- 0877 August, Generalized anxiety disorder F41.1 and Major depressive disorder, recurrent episode with anxious distress F33.9 [place] [address] [place] [id number] [place] [address] 44899- 9542 August, Ab[address] chest [address] R93.8 [place] [address] [place] [id number] [place] [address] 59539- 0436 Jul, [place] [address] 78322- 8808 Jul, Chronic kidney disease, stage 4 (severe) N18.4 [place] [address] 94441- 3101 Jul, [place] [address] 71723- 7003 Jul, Restless leg G25.81 ; Mixed stress and urge urinary incontinence N39.46 and Fibromyalgia M79.7 [place] [address] [place] [id number] [place] [address] 42489- 1728 Jul, Chronic kidney disease, stage 4 (severe) N18.4 [place] [address] [place] [id number] [place] [address] 11724- 5418 Jun, Orthostatic hypotension I95.1 ; Chronic kidney disease, stage 4 (severe) N18.4 ; Chest wall discomfort R07.89 and Body mass index (BMI) of 40.0-44.9 in adult Z68.41 [place] [address] [place] [id number] [place] [address] 21496- 8919 Jun, [place] [address] 46564- 2935 Jun, Orthostatic hypotension I95.1 [place] [address] [place] [id number] [place] [address] 48906- 3825 Jun, [facility] [address] [address] -[address]45 Jun, Orthostatic hypotension I95.1 ; Dysuria R30.0 and Acute cystitis without hematuria N30.00 [facility] [address] [place] [id number] [place] [address] 70408- 5666 Jun, [facility] [address] [place] [id number] [place] [address] 29376- 3534 Jun, Chronic kidney disease, stage 4 (severe) N18.4 [facility] [address] [place] [id number] [place] [address] 14176- 5182 Jun, Fibromyalgia M79.7 [facility] [address] [place] [id number] [place] [address] 25752- 9159 Jun, [facility] [address] [place] [id number] [place] [address] 79577- 0452 Jun, [facility] [address] [place] [id number] [place] [address] 77939- [address] May, [address] R93.8 and Stage 3 chronic kidney disease N18.3 [facility] [address] [place] [id number] [place] [address] 15701- 8165 May, Chronic kidney disease, stage 4 (severe) N18.4 [facility] [address] [place] [id number] [place] [address] 06016- 6629 May, Chronic kidney disease, stage 4 (severe) N18.4 [facility] [address] [place] [id number] [place] [address] 69075- [address] May, [address] R93.8 [facility] [address] [place] [id number] [place] [address] 37413- 2826 May, [facility] [address] [place] [id number] [place] [address] 60447- 1912 May, [facility] [address] [place] [id number] [place] [address] 42835- 1113 May, Generalized anxiety disorder F41.1 and Major depressive disorder, recurrent episode with anxious distress F33.9 [facility] [address] [address]- 5720 May, Mood disorder F39 [facility] [address] [address]- 6031 Apr, [facility] [id number] [place] [address] 70365- 7843 Apr, Infected skin lesion L08.9 and Muscle strain of right shoulder region, initial encounter S46.911A [facility] [id number] [place] [address] 55050- 7435 Apr, Generalized anxiety disorder F41.1 and Major depressive disorder, recurrent episode with anxious distress F33.9 [facility] [id number] [place] [address] 96806- 1163 Apr, [facility] [address] [place] [address] 62551- 0085 Apr, Recent urinary tract infection Z87.440 and Hypothyroid E03.9 [facility] [id number] [place] [address] 71760- 4302 Apr, Generalized anxiety disorder F41.1 and Major depressive disorder, recurrent episode with anxious distress F33.9 [facility] [address] [address]- 1813 Apr, Recent urinary tract infection Z87.440 [facility] [id number] [place] [address] 61464- 9211 Mar, [facility] [id number] [place] [address] 14485 -8947 Mar, Dysuria R30.0 ; Acute cystitis without hematuria N30.00 and BMI 40.0-44.9, adult Z68.41 [facility] [address] [address]- 6672 Mar, [facility] [id number] [place] [address] 05344- 4129 Mar, [place] [address] [place] [id number] [place] [address] 12966- 2718 Mar, Generalized anxiety disorder F41.1 and Major depressive disorder, recurrent episode with anxious distress F33.9 [place] [address] [place] [id number] [place] [address] 06763- 5299 Feb, Conjunctivitis, bacterial H10.9 [place] [address] [place] [id number] [place] [address] 54920- 3756 Feb, [facility] [address] 41424 -5440 Feb, Conjunctivitis, bacterial H10.9 [place] [address] [place] [id number] [place] [address] 89334- 6052 Feb, [facility] [address] [place] [id number] [place] [address] 17701 -8640 Feb, Dysuria R30.0 ; Acute cystitis N30.00 and BMI 40.0-44.9, adult Z68.41 [place] [address] [place] [id number] [place] [address] 71170- 1940 Feb, [place] [address] [place] [id number] [place] [address] 45560- 5235 Feb, Generalized anxiety disorder F41.1 and Major depressive disorder, recurrent episode with anxious distress F33.9 [place] [address] [place] [id number] [place] [address] 76632- 4565 Feb, Mood disorder F39 and BMI 40.0-44.9, adult Z68.41 [place] [address] [place] [id number] [place] [address] 25861- 1104 Jan, [place] [address] [place] [id number] [place] [address] 66816- 9622 Jan, [place] [address] [place] [id number] [place] [address] 68527- 9951 Jan, Hypothyroid E03.9 [place] [address] [place] [id number] [place] [address] 49613- 6966 Jan, [place] [address] [place] [id number] [place] [address]64 Jan, Chronic kidney disease, unspecified N18.9 ; Hypokalemia E87.6 ; Essential (primary) hypertension I10 ; Fibromyalgia M79.7 ; Coronary artery disease involving [place] coronary artery of [place] heart, angina presence unspecified I25.10 ; Hypothyroid E03.9 and Encounter for immunization Z23 [place] [address] 88592- 2167 Jan, Hypothyroid E03.9 [place] [address] 41906- 5899 Jan, [place] [address] 29606- 1476 Dec, Vitamin D deficiency E55.9 [place] [address] [place] [id number] [place] [address] 14457- 9324 Dec, Primary osteoarthritis of left knee M17.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 [place] [address] [place] [id number] [place] [address] 69850- 4325 19 Dec, 2016 Fibromyalgia M79.7 [place] [address] [place] [id number] [place] [address] 14478- 7139 18 Dec, 2016 Mood disorder F39 [place] [address] [place] [id number] [place] [address] 08755- 8742 Dec, [place] [address] 24904- 8495 Dec, Generalized anxiety disorder F41.1 and Major depressive disorder, recurrent episode with anxious distress F33.9 [place] [address] [place] [id number] [place] [address] 60937- 2124 11 Dec, 2016 [facility] [address] [address]- 0424 08 Dec, 2016 Streptococcal meningitis G00.2 [facility] [address] [address]- 9947 07 Dec, 2016 Streptococcal meningitis G00.2 [facility] [address] [address]- 4549 07 Dec, 2016 [facility] [id number] [place] [address] 51242- 2055 06 Dec, 2016 Streptococcal meningitis G00.2 [facility] [id number] [place] [address] 17038- 0214 Dec, 2016 [facility] [id number] [place] [address] 93643- 6632 Dec, Major depressive disorder, recurrent episode with anxious distress F33.9 [facility] [id number] [place] [address] 12586- 1941 Nov, Fever, unspecified fever cause R50.9 [facility] [id number] [place] [address] 85931- 4018 Nov, [facility] [id number] [place] [address] 26533- 7978 Nov, Hypothyroid E03.9 [facility] [id number] [place] [address] 17713- 4691 Nov, Generalized anxiety disorder F41.1 and Major depressive disorder, recurrent episode with anxious distress F33.9 [facility] [address] [address]- 4296 Nov, [facility] [address] [address] Oct, Dental examination Z01.20 [facility] [id number] [place] [address] 81478- 1632 Oct, Generalized anxiety disorder F41.1 and Major depressive disorder, recurrent episode with anxious distress F33.9 [place] [address] [address]- 2800 Oct, Chronic kidney disease, stage 4 (severe) N18.4 [place] [address] [address]- 0536 Oct, [place] [address] [place] [id number] [place] [address] 48410- 3101 Oct, Fibromyalgia M79.7 [place] [address] [place] [id number] [place] [address] 39715- 3887 Oct, [place] [address] [place] [id number] [place] [address] 23183- 9996 Oct, Generalized anxiety disorder F41.1 ; Major depressive disorder, recurrent episode with anxious distress F33.9 and Bipolar disorder, current episode manic without psychotic features F31.10 [place] [address] [place] [address] [address]- 4472 Sep, [place] [id number] [place] [address] 14311- 4568 Sep, [place] [address] [place] [id number] [place] [address] 84133- 3502 Sep, Vitamin D deficiency E55.9 [place] [address], [place] [address]- 1685 Sep, Vitamin D deficiency E55.9 [place] [address], [place] [address]- 0485 Sep, [place] [id number] [place] [address] 63167- 0158 Sep, Chronic kidney disease, stage 4 (severe) N18.4 ; Hypothyroid E03.9 ; Restless leg G25.81 ; Fibromyalgia M79.7 ; Essential ( primary) hypertension I10 ; Vitamin D deficiency E55.9 ; Dyspepsia R10.13 ; Anemia in chronic kidney disease D63.1 ; Chronic kidney disease, unspecified N18.9 ; Coronary artery disease involving [place] coronary artery of [place] heart , angina presence unspecified I25.10 ; Screening breast examination Z12.39 and Low back pain M54.5 [place] [id number] [place] [address] 44480- 0565 August, Generalized anxiety disorder F41.1 and Major depressive disorder, recurrent episode with anxious distress F33.9 [place] [address] [place] [id number] [place] [address] 05844- 0572 August, Generalized anxiety disorder F41.1 and Major depressive disorder, recurrent episode with anxious distress F33.9 [place] [address] [place] [id number] [place] [address] 35596- 9430 August, Fibromyalgia M79.7 [place] [address] [place] [id number] [place] [address] 08585- 8408 Jul, Generalized anxiety disorder F41.1 and Major depressive disorder, recurrent episode with anxious distress F33.9 [place] [address] [place] [id number] [place] [address] 00392- 9486 Jul, Fibromyalgia M79.7 [place] [address] [place] [id number] [place] [address] 91124- 2970 Jul, Generalized anxiety disorder F41.1 [place] [address] [place] [id number] [place] [address] 98738- 3855 May, [place] [address] [place] [id number] [place] [address] 35227- 7530 May, Hypothyroid E03.9 [place] [address] [place] [address] 70076- 3239 08 May, 2016 Chronic kidney disease, stage 4 (severe) N18.4 ; Hypothyroid E03.9 ; Restless leg G25.81 ; Fibromyalgia M79.7 ; Essential ( primary) hypertension I10 ; Vitamin D deficiency E55.9 ; Dyspepsia R10.13 ; Acute non-recurrent maxillary sinusitis J01.00 ; Anemia in chronic kidney disease D63.1 ; Chronic kidney disease, unspecified N18.9 and Coronary artery disease involving [place] coronary artery of [place] heart, angina presence unspecified I25.10 [facility] [address] [place] [id number] [place] [address] 77049- 3977 02 May, 2016 Vitamin D deficiency, unspecified E55.9 [facility] [address] [place] [id number] [place] [address] 95078- 3057 May, Generalized anxiety disorder F41.1 and Major depressive disorder, recurrent episode with anxious distress F33.9 [facility] [address] [place] [id number] [place] [address] 87813- 2076 Apr, Pain in right knee M25.561 and Pain in left knee M25.562 [facility] [address] [place] [id number] [place] [address] 23661- 3649 Apr, [facility] [address] [place] [id number] [place] [address] 51926- 0084 Apr, [facility] [id number] [place] [address] 36658- 1381 Apr, [facility] [address] [place] [id number] [place] [address] 33518- 2828 Mar, Generalized anxiety disorder F41.1 and Major depressive disorder, recurrent episode with anxious distress F33.9 [facility] [id number] [place] [address] 18385- 3032 Mar, Generalized anxiety disorder F41.1 and Major depressive disorder, recurrent episode with anxious distress F33.9 [facility] [address], [place] [address]- 4946 Mar, [facility] [address] [place] [id number] [place] [address] 64943- 2546 Mar, [facility] [id number] [place] [address] 03593- 3961 Mar, [facility] [address] [place] [address] 33629- 4023 Mar, Asthma J45.909 and Fibromyalgia M79.7 [place] [address] 92487- 8070 Mar, Chronic kidney disease, stage 4 (severe) N18.4 ; Vitamin D deficiency E55.9 and Essential (primary) hypertension I10 [place] [address] 98473- 7846 Feb, [place] [address] 50950- 9357 Feb, Dysuria R30.0 ; Mixed stress and urge urinary incontinence N39.46 ; Fibromyalgia M79.7 and Chronic kidney disease, stage IV (severe) N18.4 [place] [address] 24559- 4579 Feb, Chronic kidney disease, stage 4 (severe) N18.4 [place] [address] 26644- 6527 Feb, Chronic kidney disease, stage 4 (severe) N18.4 [place] [address] 08721- 3897 Feb, [place] [address] 53980- 7293 Feb, Vitamin D deficiency, unspecified E55.9 [place] [address] 57396- 9280 Jan, [place] [address] 03357- 7756 Jan, [place] [address] 32186- 6165 Dec, [place] [address] 21909- 8190 Dec, Chronic kidney disease, stage 4 (severe) N18.4 [place] [address] [place] [address]- 1032 Dec, Dysthymic disorder F34.1 and Generalized anxiety disorder F41.1 [facility] [address] [place] [id number] [place] [address] 57525- 3132 Dec, [facility] [address] [place] [id number] [place] [address] 86529- 6217 Dec, [facility] [address] [place] [id number] [place] [address] 34829- 8326 Dec, Dysthymic disorder F34.1 and Generalized anxiety disorder F41.1 [place] [address] [place] [id number] [place] [address] 21506- 4879 Dec, Dysuria R30.0 ; Chronic kidney disease, stage 4 (severe) N18.4 ; Hypertension I10 ; Dyspepsia R10.13 ; Yeast dermatitis B37.2 ; Palpitations R00.2 ; Hypothyroid E03.9 ; Functional 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 and Other seasonal allergic rhinitis J30.2 [facility] [address] [place] [id number] [place] [address] 10189 -6857 Dec, [facility] [address] [place] [id number] [place] [address] 02719 -4244 Nov, Dysuria R30.0 and Stress incontinence N39.3 [facility] [address] [place] [id number] [place] [address] 36603- 7221 Nov, [facility] [address] [place] [id number] [place] [address] 17494- 9261 Nov, [facility] [address] [place] [id number] [place] [address] [phone]- [phone] Nov, Osteoarthritis of knees, bilateral M17.0 [facility] [id number] [place] [address] [id number]- [phone] Nov, Dysthymic disorder F34.1 and Generalized anxiety disorder F41.1 [address] [place] [address] Nov, [facility] [id number] [place] [address] [phone] Nov, [facility] [id number] [place] [address] [id number]- [phone] Nov, Urgency of urination R39.15 [facility] [address] [address]- [address] Nov, [facility] [id number] [place] [address] [id number]- [phone] Nov, Chronic kidney disease, stage 4 (severe) N18.4 [facility] [id number] [place] [address] 86188- 5128 Oct, Hypertension I10 ; Coronary artery disease involving [place] coronary artery of [place] heart, angina presence unspecified I25.10 ; Palpitations R00.2 ; Hypothyroid E03.9 ; Right foot pain M79.671 ; Functional 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 and Other seasonal allergic rhinitis J30.2 [facility] [id number] [place] [address] [phone]- [phone] Oct, Dysthymic disorder F34.1 and Generalized anxiety disorder F41.1 [facility] [id number] [place] [address] [phone]- [phone] Sep, [facility] [id number] [place] [address] [phone]- [phone] Sep, [facility] [id number] [place] [address] [phone]- [phone] Sep, [facility] [id number] [place] [address] 30618- 3322 Sep, [facility] [id number] [place] [address] 00749- 9739 Sep, [facility] [id number] [place] [address] 70378- 0681 Sep, Dysthymic disorder F34.1 and Generalized anxiety disorder F41.1 [place] [facility] [id number] [place] [address] 88542- 4838 16 Sep, 2015 Asthma with acute exacerbation in adult J45.901 ; Dysuria R30.0 ; Chronic kidney disease, stage 4 (severe) N18.4 and History of anemia Z86.2 [facility] [facility] [id number] [place] [address] 69409- 3711 2015 Generalized anxiety disorder F41.1 and Dysthymic disorder F34.1 [facility] [facility] [id number] [place] [address] 55613- 2952 August, Screening breast examination Z12.39 and Acute recurrent maxillary sinusitis J01.01 [facility] [id number] [place] [address] 43534- 9908 August, Osteoarthritis of knees, bilateral M17.0 [facility] [id number] [place] [address] 48772- 6034 August, Chronic kidney disease, stage 4 (severe) N18.4 ; Acute non- recurrent maxillary sinusitis J01.00 ; Urinary problem R39.89 ; Bowel habit changes R19.4 ; Functional 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 and History of colon polyps Z86.010 [facility] [id number] [place] [address] 74253- 6557 Jul, Dysthymic disorder F34.1 and Generalized anxiety disorder F41.1 [facility] [id number] [place] [address] 20998- 1156 Jul, [id number] [place] [address] 37303- 5367 18 Jul, 2015 Dysthymic disorder F34.1 ; Generalized anxiety disorder F41.1 and director long term care use of drug Z79.899 [place] [facility] [id number] [place] [address] 28728- 8081 Jul, [facility] [facility] [address] [place] [address] 6929 Jun, [facility] [id number] [place] [address] 58066- 2537 Jun, [facility] [id number] [place] [address] 40368- 6583 May, [facility] [id number] [place] [address] 65531- 1359 May, Dysthymic disorder F34.1 and Generalized anxiety disorder F41.1 [facility] [id number] [place] [address] 80034- 8790 Apr, Kidney disease N28.9 [facility] [id number] [place] [address] 86899- 3920 Apr, Generalized anxiety disorder F41.1 and Dysthymic disorder F34.1 [facility] [facility] [id number] [place] [address] 10462- 2307 Apr, Chronic kidney disease, stage 4 (severe) N18.4 [facility] [id number] [place] [address] 83821- 8031 Apr, Generalized anxiety disorder F41.1 ; Major depression, recurrent F33.9 and Sleep disturbance G47.9 [place] [facility] [id number] [place] [address] 96106- 4419 Mar, Generalized anxiety disorder F41.1 and Dysthymic disorder F34.1 [facility] [id number] [place] [address] 68608- 4590 Mar, Generalized anxiety disorder F41.1 ; Dysthymic disorder F34.1 and Insomnia G47.00 [place] [id number] [place] [address] 49116- 0730 Mar, [facility] [id number] [place] [address] 94187- 4356 Mar, [facility] [address] 62103- 4020 17 Mar, 2015 Osteoarthritis of knees, bilateral M17.0 [place] [address] 37495- 5422 Mar, Hypertension I10 ; Hypothyroid E03.9 ; Dysthymic disorder F34.1 ; Chronic kidney disease, stage 4 (severe) N18.4 and Nausea & vomiting R11.2 [place] [address] 39777- 4208 Mar, Generalized anxiety disorder F41.1 ; Dysthymic disorder F34.1 and Insomnia G47.00 [place] [address] 54795- 3520 Mar, Dehydration E86.0 ; Chronic kidney disease, stage 4 (severe ) N18.4 and Nausea & vomiting R11.2 [facility] [address] 61593 -1332 Mar, Gastroenteritis K52.9 [place] [address] 39326- 0541 Mar, [place] [address] 66902- 9966 Mar, [place] [address] 66324- 8240 Feb, Dysthymic disorder F34.1 and Generalized anxiety disorder F41.1 [facility] [address] 47077- 7117 Jan, UTI (urinary tract infection) N39.0 ; Asthma J45.909 ; Coronary artery disease involving [place] coronary artery of [place] heart, angina presence unspecified I25.10 ; Hypertension I10 ; Hypothyroid E03.9 ; Vitamin D deficiency E55.9 ; Insomnia G47.00 ; Palpitations R00.2 ; Depressed F32.9 ; Restless leg G25.81 and Anxiety F41.9 [place] [address] [place] [address]- 7820 Jan, Dysthymic disorder F34.1 and Generalized anxiety disorder F41.1 [place] [address] 59736- 3876 Jan, [facility] [facility] [id number] [place] [address] 20203- 8906 Dec, [place] [address] 57075- 0834 Dec, Alkalosis 276.3 ; Chronic kidney disease, 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.4 ; Hyperpotassemia 276.7 ; Secondary hyperparathyroidism, renal 588.81 ; Proteinuria 791.0 ; Unspecified vitamin D deficiency 268.9 ; Anemia in chronic kidney disease 285.21 ; Other and unspecified hyperlipidemia 272.4 ; Hypertension, essential, benign 401.1 and Chronic kidney disease (CKD), stage III (moderate) 585.3 [facility] [facility] [id number] [place] [address] 62969- 5143 Dec, [facility] [facility] [id number] [place] [address] 16514- 8955 Dec, Depressive disorder, not elsewhere classified 311 and Generalized anxiety disorder 300.02 [place] [id number] [place] [address] 61813- 5252 10 Dec, 2014 [place] [facility] [id number] [place] [address] 69366- 4812 Dec, [facility] [id number] [place] [address] 90173- 7757 Nov, Depressive disorder, not elsewhere classified 311 and Generalized anxiety disorder 300.02 [address] [id number] [place] [address] 45018- 5085 Nov, Arthritis of both knees 716.96 [place] [facility] [id number] [place] [address] 29892- 3742 Nov, PAF (paroxysmal atrial fibrillation) 427.31 ; CAD (coronary artery disease) 414.00 ; Chest pain 786.50 and Chronic kidney disease (CKD) stage G4/A1, severely decreased glomerular filtration rate (GFR) between 15-29 mL/min/1.73 square meter and albuminuria creatinine ratio less than 30 mg/g 585.4 [facility] [id number] [place] [address] 90481- 6296 Oct, Coronary atherosclerosis of unspecified type of vessel, [place] or graft 414.00 ; Chronic kidney disease, 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.4 ; Hypertension 401.9 and Edema 782.3 [place] [id number] [place] [address] 86359- 1244 Oct, Depressive disorder, not elsewhere classified 311 and Generalized anxiety disorder 300.02 [place] [id number] [place] [address] 12055- 2261 Oct, Depressive disorder, not elsewhere classified 311 and Generalized anxiety disorder 300.02 [place] [id number] [place] [address] 18859- 3846 Oct, [place] [facility] [id number] [place] [address] 44313- 5420 Oct, [place] [facility] [id number] [place] [address] 79654- 4239 Sep, [place] [id number] [place] [address] 15273- 1754 Sep, Chronic kidney disease, 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.4 [place] [facility] [id number] [place] [address] 94663- 4716 Sep, [place] [id number] [place] [address] 64140- 3551 Sep, Coronary atherosclerosis of unspecified type of vessel, [place] or graft 414.00 ; Hypertension 401.9 ; Edema 782.3 and Hypothyroidism 244.9 [place] [id number] [place] [address] 31391- 0434 Sep, Coronary atherosclerosis of unspecified type of vessel, [place] or graft 414.00 ; Hypertension 401.9 ; Fibromyalgia 729.1 ; Edema 782.3 ; Hypothyroidism 244.9 and Anemia 285.9 [facility] [address] 81275- 3304 Sep, Anxiety disorder, unspecified 300.00 and Depressive disorder , not elsewhere classified 311 [facility] [address] 83903- 5767 Sep, [facility] [address] 12627- 3978 August, Generalized anxiety disorder 300.02 [facility] [address] 84812- 4536 August, Closed fracture of lateral malleolus 824.2 [facility] [address] 52434- 4042 Jul, [facility] [address] 73991- 2888 Jul, [facility] [id number] [place] [address] 21232- 3361 Jun, [facility] [id number] [place] [address] 23584- 1884 Jun, [facility] [id number] [place] [address] 98970- 7660 Jun, [facility] [id number] [place] [address] 73966- 4794 Jun, [facility] [id number] [place] [address] 18263- 7716 Jun, [facility] [address] 27594- 8444 Jun, [facility] [id number] [place] [address] 17307- 8292 May, [facility] [address] 73770- 1241 19 May, 2014 [facility] [place] [facility] [address] [id number] [place] [address]- 5794 18 May, 2014 [facility] [place] [facility] [address] [id number] [place] 4046 18 May, 2014 [facility] [place] [facility] [address] [id number] [place] [address]- 1516 16 May, 2014 [facility] [place] [facility] [address] [id number] [place] [address]- 9389 16 May, 2014 [facility] [place] [facility] [address] [id number] [place] [address]- 0836 13 May, 2014 [facility] [place] [facility] [address] [id number] [place] [address]- 3846 13 May, 2014 [facility] [place] [facility] [address] [id number] [place] [address]- 7806 10 May, 2014 [facility] [place] [facility] [address] [id number] [place] [address]- 1412 10 May, 2014 [facility] [place] [facility] [address] [id number] [place] [address]- 3196 Apr, [facility] [place] [facility] [address] [id number] [place] [address]- 8461 Apr, [facility] [place] [facility] [address] [id number] [place] [address]- 3169 Mar, [facility] [place] [facility] [address] [id number] [place] [address]- 2543 Mar, [facility] [place] [facility] [address] [id number] [place] [address]- 2540 Mar, [facility] [place] [facility] [address] [id number] [place] [address]- 2549 15 Mar, 2014 [facility] [place] [facility] [address] [id number] [place] [address]- 2548 Mar, [facility] [place] [facility] [address] [id number] [place] [address]- 1006 Mar, [facility] [place] [facility] [address] [id number] [place] [address]- 6464 Mar, [facility] [place] [facility] [address] [id number] [place] [address]- 7861 Feb, [facility] [place] [facility] [address] [id number] [place] [address]- 0520 Feb, [facility] [place] [facility] [address] [id number] [place] [address]- 5542 Feb, [facility] [place] [facility] [address] [id number] [place] [address]- 1557 Jan, [facility] [place] [facility] [address] [id number] [place] [address]- 5560 Jan, [facility] [place] [facility] [address] [id number] [place] [address]- 5264 Jan, [facility] [place] [facility] [address] [id number] [place] [address]- 2803 Jan, [facility] [place] [facility] [address] [id number] [place] [address]- 8702 Jan, [facility] [place] [facility] [address] [id number] [place] [address]- 2021 Jan, [facility] [place] [facility] [address] [id number] [address]- 4930 Jan, [facility] [place] [facility] [address] [id number] [place] [address]- 0567 Jan, [facility] [place] [facility] [address] [id number] [place] [address]- 7225 Jan, [facility] [place] [facility] [address] [id number] [place] 6803 Jan, [facility] [place] [facility] [address] [id number] [place] [address]- 4201 Nov, [facility] [place] [facility] [address] [id number] [place] [address]- 1903 Nov, [facility] [place] [facility] [address] [id number] [place] [address]- 4510 Nov, [facility] [place] [facility] [address] [id number] [place] [address]- 2750 Oct, [facility] [place] [facility] [address] [id number] [place] [address]- 5973 Oct, [facility] [place] [facility] [address] [id number] [place] [address]- 9411 Oct, [facility] [place] [facility] [address] [id number] [place] [address]- 1306 Oct, [facility] [place] [facility] [address] [id number] [place] [address]- 0323 Oct, [facility] [place] [facility] [address] [id number] [place] [address]- 2833 Oct, [facility] [place] [facility] [address] [id number] [place] [address]- 8041 Oct, [facility] [place] [facility] [address] [id number] [place] [address]- 6768 Oct, [facility] [place] [facility] [address] [id number] [place] [address]- 0941 Oct, [facility] [place] [facility] [address] [id number] [place] [address]- 5999 Sep, [facility] [place] [facility] [address] [id number] [place] [address]- 0279 Sep, [facility] [place] [facility] [address] [id number] [place] [address]- 4679 Sep, [facility] [place] [facility] [address] [id number] [place] [address]- 3205 Sep, [facility] [place] [facility] [address] [id number] [place] [address]- 1394 Sep, [facility] [address] [id number] [place] [address]- 6685 Sep, [facility] [place] [facility] [address] [id number] [place] [address]- 3530 Sep, [facility] [place] [facility] [address] [id number] [place] [address]- 4174 Sep, [facility] [place] [facility] [address] [id number] [place] [address]- 9339 Sep, [facility] [place] [facility] [address] [id number] [place] [address]- 3832 August, [facility] [place] [facility] [address] [id number] [place] [address]- 8922 August, [facility] [place] [facility] [address] [id number] [place] [address]- 9454 August, [facility] [address] [id number] [place] [address]- 9170 August, [facility] [place] [facility] [address] [id number] [place] [address]- 6017 August, [facility] [address] [id number] [place] [address]- 9423 August, [facility] [place] [facility] [address] [id number] [place] [address]- 5174 Jul, [facility] [place] [facility] [address] [id number] [place] [address]- 7567 Jul, [facility] [place] [facility] [address] [id number] [place] [address]- 5942 Jul, [facility] [place] [facility] [address] [id number] [place] [address]- 2843 Jul, [facility] [place] [facility] [address] [id number] [place] [address]- 8467 Jul, [facility] [place] [facility] [address] [id number] [place] [address]- 0287 Jul, [facility] [place] [facility] [address] [id number] [place] [address]- 9494 Jun, [facility] [place] [facility] [address] [id number] [place] [address]- 3167 Jun, [facility] [place] [facility] [address] [id number] [place] [address]- 2042 May, [facility] [place] [facility] [address] [id number] [place] [address]- 1621 May, [facility] [place] [facility] [address] [id number] [place] [address]- 0145 May, [facility] [place] [facility] [address] [id number] [place] [address]- 3470 May, [facility] [place] [facility] [address] [id number] [place] [address]- 8758 Apr, [facility] [place] [facility] [address] [id number] [place] [address]- 9448 Apr, [facility] [place] [facility] [address] [id number] [place] [address]- 1452 Mar, [facility] [place] [facility] [address] [id number] [place] [address]- 6825 18 Mar, 2013 [facility] [place] [facility] [address] [id number] [place] [address]- 7499 Mar, [facility] [place] [facility] [address] [id number] [place] [address]- 4660 Mar, [facility] [place] [facility] [address] [id number] [place] [address]- 3639 05 Mar, 2013 [facility] [place] [facility] [address] [id number] [place] [address]- 1743 05 Mar, 2013 [facility] [place] [facility] [address] [id number] [place] [address]- 0329 Feb, [facility] [place] [facility] [address] [id number] [place] [address]- 8222 Feb, [facility] [place] [facility] [address] [id number] [place] [address]- 3765 Feb, [facility] [place] [facility] [address] [id number] [place] [address]- 5160 Feb, [facility] [place] [facility] [address] [id number] [place] [address]- 5876 Feb, [facility] [place] [facility] [address] [id number] [place] [address]- 5420 Feb, [facility] [place] [facility] [address] [id number] [place] [address]- 3780 Jan, [facility] [place] [facility] [address] [id number] [place] [address]- 2190 24 Jan, 2013 [facility] [place] [facility] [address] [id number] [place] [address]- 8193 Jan, [facility] [place] [facility] [address] [id number] [place] [address]- 1992 Jan, [facility] [place] [facility] [address] [id number] [place] [address]- 8389 08 Jan, 2013 [facility] [place] [facility] [address] [id number] [place] [address]- 4135 Jan, [facility] [place] [facility] [address] [id number] [place] [address]- 6628 12 Dec, 2012 [facility] [place] [facility] [address] [id number] [place] 3640 Dec, [facility] [place] [facility] [address] [id number] [place] 7380 Nov, [facility] [place] [facility] [address] [id number] [place] 0157 Nov, [facility] [place] [facility] [address] [id number] [place] [address]- 3278 Oct, [facility] [address] [id number] [place] [address]- 3590 Oct, [facility] [address] [id number] [place] [address]- 1704 Oct, [facility] [address] [id number] [place] [address]- 8578 Oct, [facility] [address] [id number] [place] [address]- 1490 Oct, [facility] [address] [id number] [place] [address]- 8458 Oct, [facility] [address] [id number] [place] [address]- 3875 Sep, [facility] [address] [id number] [place] [address]- 8377 Sep, [facility] [address] [id number] [place] [address]- 2418 Sep, [facility] [address] [id number] [place] [address] Sep, [facility] [address] [id number] [place] [address] August, [facility] [address] [id number] [place] [address] August, [facility] [address] [id number] [place] [address] August, [facility] [place] [facility] [address] [id number] [place] [address] August, [facility] [address] [id number] [place] [address] August, [facility] [address] [id number], [place] [address] Jul, [facility] [address] [id number] [place] [address] Jul, [facility] [address] [id number] [place] [address] Jul, [facility] [address] [id number] [place] [address] Jul, [facility] [address] [id number], [place] [address] Jul, [facility] [address] [id number] [place] [address] Jul, [facility] [address] [id number] [place] [address] Jul, [facility] [address] [id number], [place] [address] Jul, [facility] [address] [id number], [place] [address] Jul, [facility] [address] [id number], [place] [address] Jul, [facility] [address] [id number] [id number] Jun, [facility] [address] [id number], [place] [address] Jun, [facility] [place] [facility] [address] [id number], [place] [address] Jun, [facility] [address] [id number], [place] [address] Jun, [facility] [place] [facility] [address] [id number], [place] [address] Jun, [facility] [place] [facility] [address] [id number] [place] [address] May, [facility] [address] [id number] [place] [address] 18 May, 2012 [facility] [address] [id number] [place] [address] May, [facility] [address] [id number] [place] [address] Apr, [facility] [address] [id number] [place] [address] Apr, [facility] [address] [id number] [place] [address] Apr, [facility] [address] [id number] [place] [address] Apr, [facility] [address] [id number] [place] [address] Apr, [facility] [address] [facility] [id number] [place] [address] Apr, [facility] [address] [id number] [place] [address] Mar, [facility] [address] [id number] [place] [address] Mar, [facility] [address] [facility] [id number] [place] [address] Mar, [facility] [address] [id number] [place] [address] Mar, [facility] [address] [id number] [place] [address] Feb, [facility] [address] [id number] [place] [address] Feb, [facility] [address] [facility] [id number] [place] [address] Feb, [facility] [address] [id number] [place] [address] Feb, [facility] [place] [facility] [address] [id number] [place] [address] Feb, [facility] [place] [facility] [address] [id number] [place] [address] Feb, [facility] [place] [facility] [address] [id number] [place] [address] Feb, [facility] [place] [facility] [address] [id number] [place] [address] Feb, [facility] [place] [facility] [address] [id number] [place] [address] Feb, [facility] [place] [facility] [address] [id number] [place] [address] Feb, [facility] [place] [facility] [address] [facility] [id number] [place] [address] Feb, [facility] [place] [facility] [address] [id number], [place] [address] Feb, [facility] [place] [facility] [address] [facility] [id number], [place] [address] Feb, [facility] [place] [facility] [address] [facility] [id number], [place] [address] Feb, [facility] [place] [facility] [address] [facility] [id number], [place] [address] 46[address] Feb, [facility] [place] [facility] [address] [id number], [place] [address] 16[address] Feb, [facility] [place] [facility] [address] [facility] [id number], [place] [address] Jan, [facility] [place] [facility] [address] [id number], [place] [address] Jan, [facility] [place] [facility] [address] [facility] [id number], [place] [address] Jan, [facility] [place] [facility] [address] [id number], [place] [address] 270[address] 31 Jan, 2012 [facility] [place] [facility] [address] [id number] [place] [address] 9[address] 30 Jan, 2012 [facility] [place] [facility] [address] [id number] [place] [address]- 3226 Jan, [facility] [place] [facility] [address] [id number] [place] [address]- 3716 25 Jan, 2012 [facility] [place] [facility] [address] [id number] [place] [address]- 5490 16 Jan, 2012 [facility] [place] [facility] [address] [id number] [place] [address]- [address]157 16 Jan, 2012 [facility] [place] [facility] [address] [id number] [place] [address]- 5559 15 Jan, 2012 [facility] [place] [facility] [address] [facility] [id number] [place] [address]- 9261 15 Jan, 2012 [facility] [place] [facility] [address] [facility] [id number] [place] [address]- 9[address] Jan, [facility] [place] [facility] [address] [facility] [id number] [place] [address]- 0520 26 Sep2011 [facility] [place] [facility] [address] [facility] [id number] [place] [address]- 2542 26 Sep2011 [facility] [place] [facility] [address] [id number], [place] [address] 2549 24 Sep, 2011 [facility] [place] [facility] [address] [id number], [place] [address] 2546 23 Sep, 2011 [facility] [place] [facility] [address] [id number] [place] [address] 2546 22 Sep, 2011 [facility] [place] [facility] [address] [facility] [id number] [place] [address]- 2546 21 Sep2011 [facility] [place] [facility] [address] [facility] [id number] [place] [address]- 3942 20 Sep, 2011 [facility] [place] [facility] [address] [id number] [place] [address]- 0516 20 Dec, 2011 [facility] [place] [facility] [address] [id number] [place] [address]- 1206 07 Dec, 2011 [facility] [place] [facility] [address] [id number] [place] [address] 2546 06 Dec, 2011 [facility] [place] [facility] [address] [id number] [place] [address] 2546 06 Dec, 2011 [facility] [place] [facility] [address] [id number] [place] [address] 2546 05 Dec, 2011 [facility] [place] [facility] [address] [id number] [place] [address]- 8446 23 Nov, 2011 [facility] [place] [facility] [address] [id number] [place] [address] 8340 17 Nov, 2011 [facility] [place] [facility] [address] [id number] [place] [address]- 1130 Nov, [facility] [place] [facility] [address] [id number] [place] [address]- 7221 Nov, [facility] [place] [facility] [address] [id number] [place] [address]- 1381 Nov, [facility] [place] [facility] [address] [id number] [place] [address]- 9710 Nov, [facility] [place] [facility] [address] [id number] [place] [address]- 4486 Nov, [facility] [place] [facility] [address] [id number] [place] [address] 2546 Nov, [facility] [place] [facility] [address] [id number] [place] [address]- 5226 Oct, [facility] [place] [facility] [address] [id number] [place] [address] 2546 Oct, [facility] [place] [facility] [address] [id number] [place] [address]- 5677 Oct, [facility] [place] [facility] [address] [id number] [place] [address]- 2115 Oct, [facility] [place] [facility] [address] [id number] [place] [address]- 1281 Oct, [facility] [place] [facility] [address] [id number] [place] [address]- 3477 Oct, [facility] [place] [facility] [address] [id number] [place] [address]- 9648 Oct, [facility] [place] [facility] [address] [id number] [place] [address]- 6762 Sep, [facility] [place] [facility] [address] [id number] [place] [address]- 9356 Sep, [facility] [place] [facility] [address] [id number] [place] [address]- 4071 August, [facility] [place] [facility] [address] [id number] [place] [address]- 7431 August, [facility] [place] [facility] [address] [id number] [place] [address]- 3860 August, [facility] [place] [facility] [address] [id number] [place] [address]- 3245 August, [facility] [place] [facility] [address] [id number] [place] [address]- 1491 Jul, [facility] [place] [facility] [address] [id number], [place] [address]- 3921 Jul, [facility] [place] [facility] [address] [id number] [place] [address]- 4897 Jul, [facility] [place] [facility] [address] [id number] [place] [address]- 0719 Jul, [facility] [place] [facility] [address] [id number] [place] [address]- 4539 Jul, [facility] [place] [facility] [address] [id number] [place] [address]- 3207 04 Jul, 2011 [facility] [address] [id number] [place] [address]- 7182 Jul, [facility] [place] [facility] [address] [id number] [place] [address]- 8163 Jul, [facility] [place] [facility] [address] [id number] [place] [address]- 3762 Jul, [facility] [place] [facility] [address] [id number] [place] [address]- 0945 23 Jun, 2011 [facility] [place] [facility] [address] [id number] [place] [address]- 1044 19 Jun, 2011 [facility] [place] [facility] [address] [id number] [place] [address]- 1768 15 Jun, 2011 [facility] [place] [facility] [address] [id number] [place] [address]- 2808 14 Jun, 2011 [facility] [place] [facility] [address] [id number] [place] [address]- 1603 12 Jun, 2011 [facility] [place] [facility] [address] [id number] [place] [address]- 3367 Jun, [facility] [place] [facility] [address] [facility] [id number] [place] [address]- 8461 Jun, [facility] [place] [facility] [address] [id number] [place] [address]- 8611 25 May, 2011 [facility] [place] [facility] [address] [id number] [place] [address]- 5847 24 May, 2011 [facility] [place] [facility] [address] [id number] [place] [address]- 5297 16 May, 2011 [facility] [place] [facility] [address] [id number] [place] [address]- 3441 16 May, 2011 [facility] [place] [facility] [address] [id number] [place] [address]- 0150 May, [facility] [place] [facility] [address] [id number] [place] [address]- 7066 Apr, [facility] [place] [facility] [address] [id number] [place] [address]- 1876 Apr, [facility] [place] [facility] [address] [id number] [place] [address]- 1266 Apr, [facility] [place] [facility] [address] [id number] [place] [address]- 8736 Apr, [facility] [place] [facility] [address] [id number] [place] [address]- 1016 Apr, [facility] [place] [facility] [address] [id number] [place] [address]- 3706 Mar, [facility] [place] [facility] [address] [id number] [place] [address]- 8876 Mar, [facility] [place] [facility] [address] [id number] [place] [address]- 4786 Mar, [facility] [place] [facility] [address] [id number] [place] [address]- 9775 Mar, [facility] [place] [facility] [address] [id number], [place] [address]- 7546 Mar, [facility] [place] [facility] [address] [id number], [place] [address]- 2106 Mar, [facility] [place] [facility] [address] [id number], [place] [address]- 5076 Mar, [facility] [place] [facility] [address] [id number] [place] [address]- 6026 Feb, [facility] [place] [facility] [address] [id number] [place] [address]- 9076 Feb, [facility] [place] [facility] [address] [id number], [place] [address]- 1866 Feb, [facility] [place] [facility] [address] [id number], [place] [address]- 7049 Feb, [facility] [place] [facility] [address] [id number] [place] [address]- 9449 31 Jan, 2011 [facility] [place] [facility] [address] [id number] [place] [address]- 2486 Jan, [facility] [place] [facility] [address] [facility] [id number] [place] [address]- 5646 Jan, [facility] [place] [facility] [address] [id number] [place] [address]- 8185 Jan, [facility] [place] [facility] [address] [id number] [place] [address], [place] [address]- 7798 Nov, [facility] [place] [facility] [address] [id number] [place] [address]- 7853 Mar, [facility] [place] [facility] [address] [facility] [id number] [place] [address]- 4050 Mar, [facility] [place] [facility] [address] [facility] [id number] [place] [address]- 8002 Mar, [facility] [place] [facility] [address] [facility] [id number] [place] [address]- 9082 Mar, [facility] [place] [facility] [address] [facility] [id number] [place] [address]- 7892 Mar, [facility] [place] [facility] [address] [facility] [id number] [place] [address]- 6212 Mar, [facility] [place] [facility] [address] [facility] [id number], [place] [address]- 2547 Feb, [facility] [place] [facility] [address] [id number] [place] [address]- 9597 Feb, [facility] [place] [facility] [address] [facility] [id number] [place] [address]- 3566 28 Jan, 2009 [facility] [place] [facility] [address] [facility] [id number] [place] [address]- 4891 14 Jan, 2009 [facility] [place] [facility] [address] [facility] [id number] [place] [address]- 5321 14 Jan, 2009 IMMUNIZATIONS No Known Immunizations SOCIAL HISTORY Never Assessed REASON FOR VISIT referral PLAN OF CARE VITAL SIGNS MEDICATIONS Unknown [...] 2020 & 2007 Surgical History Bladder surgery [facility] 03/2016 Surgical History Neurotransmitter placed 10/2017 Hospitalization History Surgeries Only Hospitalization History 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
--- OUTSIDE RECORDS SUMMARY | 2018-05-29 07:55 | XMS REPORT ---
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 Name Role Phone ZHANE BOSCH Unavailable PROBLEMS Type Condition ICD9-CM Code [id number] Code Onset Dates Condition Status SNOMED Code Problem Low back pain M54.5 Active 886651721 Problem Abnormal chest CT R93.8 Active 726331075 Problem Dysthymic disorder F34.1 Active 09212423 Problem Generalized anxiety disorder F41.1 Active 97412186 Problem Coronary artery disease involving [place] coronary artery of [place] heart, angina presence unspecified I25.10 Active 1634051940101 Problem Restless leg G25.81 Active 86578981 Problem Hypothyroid E03.9 Active 71930620 Problem Insomnia G47.00 Active 975106515 Problem Asthma J45.909 Active 513467363 Problem Chronic kidney disease, unspecified N18.9 Active 578781617 Problem Palpitations R00.2 Active 26375871 Problem Anemia in chronic kidney disease D63.1 Active 027122853759518 Problem Depressed F32.9 Active 92608645 Problem Bipolar disorder, current episode manic without psychotic features F31.10 Active 360432457 Problem Primary osteoarthritis of left knee M17.12 Active 087445615 Problem Degenerative tear of medial meniscus of left knee M23.204 Active 305232143 Problem Chronic pain syndrome G89.4 Active 624810559 Problem Restless leg syndrome G25.81 Active 89205674 Problem History of colon polyps Z86.010 Active 879264069 Problem Functional 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 Active 50060676 Problem Chronic kidney disease, stage 4 (severe) N18.4 Active 242597479 Problem Stage 3 chronic kidney disease N18.3 Active 759669210 Problem Mood disorder F39 Active 47094625 Problem Seasonal allergic rhinitis due to pollen J30.1 Active 52291363 Problem Body mass index (BMI) of 40.0-44.9 in adult Z68.41 Active 132267984 Problem Other seasonal allergic rhinitis J30.2 Active 648963653 Problem Long-term use of high-risk medication Z79.899 Active 560101232 Problem Hypokalemia E87.6 Active 41446321 Problem Asthma with acute exacerbation in adult J45.901 Active 501354214 Problem History of anemia Z86.2 Active 040402578 Problem Vitamin D deficiency E55.9 Active 43435657 Problem Essential (primary) hypertension I10 Active 17048571 Problem Fibromyalgia M79.7 Active 410579838 Problem Mixed stress and urge urinary incontinence N39.46 Active 462414866 ALLERGIES No Information ENCOUNTERS Encounter Location Date Diagnosis [place] [address] [address]97- 6984 Dec, [place] [address] 33412- 0668 Nov, [place] [address] 12969- 5326 Nov, [place] [address] 55020- 0939 Nov, [place] [address] 66064- 1888 Nov, Fibromyalgia M79.7 ; Vision changes H53.9 ; Chest wall pain R07.89 and Chronic pain syndrome G89.4 [place] [address] 58929- 6094 Nov, [place] [address] 94505- 4438 Nov, Rash of hands R21 [place] [address] 17186- 1820 Nov, Generalized anxiety disorder F41.1 and Major depressive disorder, recurrent episode with anxious distress F33.9 [place] [address] 29837- 6172 Nov, Fibromyalgia M79.7 [place] [address] [place] [id number] [place] [address] 53315- 4355 Nov, Complicated UTI (urinary tract infection) N39.0 [facility] [address] [place] [id number] [place] [address] 61309- 2999 Oct, [facility] [address] [place] [id number] [place] [address] 32179- 9385 Oct, Generalized anxiety disorder F41.1 and Major depressive disorder, recurrent episode with anxious distress F33.9 [place] [address] [place] [id number] [place] [address] 04535- 5334 Oct, [place] [address] 68357- 0942 Oct, Fibromyalgia M79.7 [place] [address] [place] [id number] [place] [address] 12569- 2498 Sep, Restless leg syndrome G25.81 and Restless leg G25.81 [place] [address] [place] [id number] [place] [address] 63705- 9796 Sep, [place] [address] [place] [id number] [place] [address] 73328- 5215 Sep, Seasonal allergic rhinitis due to pollen J30.1 ; Screening for breast cancer Z12.31 ; Chest pain at rest R07.9 ; Restless leg syndrome G25.81 ; Essential (primary) hypertension I10 and Depressed F32.9 [place] [address] [place] [id number] [place] [address] 35800- 2819 August, Fibromyalgia M79.7 [facility] [address] [place] [id number] [place] [address] 49918- 2493 August, [place] [address] [place] [id number] [place] [address] 47112- 2068 August, [facility] [address] [place] [id number] [place] [address] 68375- 2296 August, Ab[address] R93.8 [place] [address] [place] [id number] [place] [address] 00884- 6060 August, Generalized anxiety disorder F41.1 and Major depressive disorder, recurrent episode with anxious distress F33.9 [place] [address] 55631- 8845 August, Abnormal chest CT R93.8 [place] [address] 16948- 4851 Jul, [place] [address] 07649- 2593 Jul, Chronic kidney disease, stage 4 (severe) N18.4 [place] [address] 18569- 6036 Jul, [place] [address] 19287- 0551 Jul, Restless leg G25.81 ; Mixed stress and urge urinary incontinence N39.46 and Fibromyalgia M79.7 [place] [address] [place] [id number] [place] [address] 64284- 5348 Jul, Chronic kidney disease, stage 4 (severe) N18.4 [place] [address] [place] [id number] [place] [address] 18207- 7507 Jun, Orthostatic hypotension I95.1 ; Chronic kidney disease, stage 4 (severe) N18.4 ; Chest wall discomfort R07.89 and Body mass index (BMI) of 40.0-44.9 in adult Z68.41 [place] [address] [place] [id number] [place] [address] 15706- 0677 Jun, [place] [address] 94886- 0522 Jun, Orthostatic hypotension I95.1 [place] [address] [place] [id number] [place] [address] 15009- 7213 Jun, [facility] [address] 78252 -7143 Jun, Orthostatic hypotension I95.1 ; Dysuria R30.0 and Acute cystitis without hematuria N30.00 [facility] [address] [place] [id number] [place] [address] 19261- 2157 Jun, [facility] [address] [place] [id number] [place] [address] 91741- 8566 Jun, Chronic kidney disease, stage 4 (severe) N18.4 [facility] [address] [place] [id number] [place] [address] 81981 2541 Jun, Fibromyalgia M79.7 [facility] [address] [place] [id number] [place] [address] 80812- 0486 Jun, [facility] [address] [place] [id number] [place] [address] 74702- 3819 Jun, [facility] [address] [place] [id number] [place] [address] 98202- [address]306 May, [address] R93.8 and Stage 3 chronic kidney disease N18.3 [facility] [address] [place] [id number] [place] [address] 44744- 8382 May, Chronic kidney disease, stage 4 (severe) N18.4 [facility] [address] [place] [id number] [place] [address] 58654- 1470 May, Chronic kidney disease, stage 4 (severe) N18.4 [facility] [address] [place] [address] 88482- 39[address] May, [address] R93.8 [facility] [address] [place] [id number] [place] [address] 48163- 1986 May, [facility] [address] [place] [id number] [place] [address] 31162- 0040 May, [facility] [address] [place] [id number] [place] [address] 62102- 7393 May, Generalized anxiety disorder F41.1 and Major depressive disorder, recurrent episode with anxious distress F33.9 [facility] [address] [place] [address] 77004- 4904 May, Mood disorder F39 [facility] [address] [place] [address] 36535- 7452 Apr, [facility] [address] [place] [id number] [place] [address] 74018- 1931 Apr, Infected skin lesion L08.9 and Muscle strain of right shoulder region, initial encounter S46.911A [place] [address] [place] [id number] [place] [address] 77504- 4730 Apr, Generalized anxiety disorder F41.1 and Major depressive disorder, recurrent episode with anxious distress F33.9 [place] [address] [place] [id number] [place] [address] 70012- 8786 Apr, [facility] [address] [place] [id number] [place] [address] 96112- 6683 Apr, Recent urinary tract infection Z87.440 and Hypothyroid E03.9 [place] [address] [place] [id number] [place] [address] 02129- 5971 Apr, Generalized anxiety disorder F41.1 and Major depressive disorder, recurrent episode with anxious distress F33.9 [place] [address] [place] [address] 65633- 5338 Apr, Recent urinary tract infection Z87.440 [facility] [address] [place] [address] 68722- 7850 Mar, [facility] [address] [place] [id number] [place] [address] 71705 -1465 Mar, Dysuria R30.0 ; Acute cystitis without hematuria N30.00 and BMI 40.0-44.9, adult Z68.41 [place] [address] [place] [address] 38522- 4477 Mar, [place] [address] [place] [id number] [place] [address] 16442- 9381 Mar, [place] [address] [place] [id number] [place] [address] 15460- 9511 Mar, Generalized anxiety disorder F41.1 and Major depressive disorder, recurrent episode with anxious distress F33.9 [place] [address] [place] [id number] [place] [address] 43660- 4134 Feb, Conjunctivitis, bacterial H10.9 [place] [address] [place] [id number] [place] [address] 86069- 7543 Feb, [facility] [address] 48165 -8139 Feb, Conjunctivitis, bacterial H10.9 [place] [address] [place] [id number] [place] [address] 36850- 6162 Feb, [facility] [address] 72009 -7753 Feb, Dysuria R30.0 ; Acute cystitis N30.00 and BMI 40.0-44.9, adult Z68.41 [place] [address] [place] [id number] [place] [address] 75864- 7218 Feb, [place] [address] [place] [id number] [place] [address] 70961- 8492 Feb, Generalized anxiety disorder F41.1 and Major depressive disorder, recurrent episode with anxious distress F33.9 [place] [address] [place] [id number] [place] [address] 73253- 6226 Feb, Mood disorder F39 and BMI 40.0-44.9, adult Z68.41 [place] [address] [place] [id number] [place] [address] 63724- 3385 Jan, [place] [address] [place] [id number] [place] [address] 91147- 9222 Jan, [place] [address] [place] [address]- 6837 11 Jan, 2017 Hypothyroid E03.9 [place] [address] 19813- 2493 Jan, [place] [address] 96923- 9048 Jan, Chronic kidney disease, unspecified N18.9 ; Hypokalemia E87.6 ; Essential (primary) hypertension I10 ; Fibromyalgia M79.7 ; Coronary artery disease involving [place] coronary artery of [place] heart, angina presence unspecified I25.10 ; Hypothyroid E03.9 and Encounter for immunization Z23 [place] [address] 43896- 2303 Jan, Hypothyroid E03.9 [place] [address] 25738- 7436 Jan, [place] [address] 79711- 5830 Dec, Vitamin D deficiency E55.9 [place] [address] 62962- 5863 Dec, Primary osteoarthritis of left knee M17.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 [place] [address] 78706- 8503 19 Dec, 2016 Fibromyalgia M79.7 [place] [address] 04203- 2504 18 Dec, 2016 Mood disorder F39 [place] [address] 40490- 0969 13 Dec, 2016 [place] [address] 18534- 5118 13 Dec, 2016 Generalized anxiety disorder F41.1 and Major depressive disorder, recurrent episode with anxious distress F33.9 [place] [address] 44915- 7718 11 Dec, 2016 [facility] [address] [address]- 4484 08 Dec, 2016 Streptococcal meningitis G00.2 [facility] [address] [place] [address] 34529- 3882 07 Dec, 2016 Streptococcal meningitis G00.2 [facility] [address] [place] [id number] [place] [address] 42094- 7637 07 Dec, 2016 [facility] [address] [place] [id number] [place] [address] 79561- 1562 06 Dec, 2016 Streptococcal meningitis G00.2 [facility] [address] [place] [id number] [place] [address] 12158- 2268 Dec, [facility] [address] [place] [id number] [place] [address] 94329- 2023 Dec, Major depressive disorder, recurrent episode with anxious distress F33.9 [facility] [address] [place] [id number] [place] [address] 94217- 3324 Nov, Fever, unspecified fever cause R50.9 [facility] [address] [place] [id number] [place] [address] 70997- 7371 Nov, [facility] [address] [place] [id number] [place] [address] 80998- 4373 Nov, Hypothyroid E03.9 [facility] [address] [place] [id number] [place] [address] 13349- 4420 Nov, Generalized anxiety disorder F41.1 and Major depressive disorder, recurrent episode with anxious distress F33.9 [facility] [address] [place] [address] 79513- 2673 Nov, [facility] [address] [place] [address] [id number] Oct, Dental examination Z01.20 [facility] [address] [place] [id number] [place] [address] 96490- 2185 Oct, Generalized anxiety disorder F41.1 and Major depressive disorder, recurrent episode with anxious distress F33.9 [place] [address] [address]- 6058 Oct, Chronic kidney disease, stage 4 (severe) N18.4 [place] [address] [address]- 2748 Oct, [place] [address] [place] [id number] [place] [address] 79817- 2548 Oct, Fibromyalgia M79.7 [place] [address] [place] [address] 51033- 8121 Oct, [place] [address] [place] [address] 88129- 8074 Oct, Generalized anxiety disorder F41.1 ; Major depressive disorder, recurrent episode with anxious distress F33.9 and Bipolar disorder, current episode manic without psychotic features F31.10 [place] [address] [address]- 8244 Sep, [place] [address] [place] [address] 44241- 5678 Sep, [place] [address] [address]- 2168 Sep, Vitamin D deficiency E55.9 [place] [address] [address]- 8891 Sep, Vitamin D deficiency E55.9 [place] [address] [address]- 2541 Sep, [place] [address] [place] [address] [address]- 8172 Sep, Chronic kidney disease, stage 4 (severe) N18.4 ; Hypothyroid E03.9 ; Restless leg G25.81 ; Fibromyalgia M79.7 ; Essential ( primary) hypertension I10 ; Vitamin D deficiency E55.9 ; Dyspepsia R10.13 ; Anemia in chronic kidney disease D63.1 ; Chronic kidney disease, unspecified N18.9 ; Coronary artery disease involving [place] coronary artery of [place] heart , angina presence unspecified I25.10 ; Screening breast examination Z12.39 and Low back pain M54.5 [place] [address] [place] [id number] [place] [address] 34315- 8714 August, Generalized anxiety disorder F41.1 and Major depressive disorder, recurrent episode with anxious distress F33.9 [place] [address] [place] [id number] [place] [address] 94316- 7909 August, Generalized anxiety disorder F41.1 and Major depressive disorder, recurrent episode with anxious distress F33.9 [place] [address] [place] [id number] [place] [address] 39778- 4003 August, Fibromyalgia M79.7 [place] [address] [place] [id number] [place] [address] 26914- 6173 Jul, Generalized anxiety disorder F41.1 and Major depressive disorder, recurrent episode with anxious distress F33.9 [place] [address] [place] [address] [place] [address] 41779- 2613 Jul, Fibromyalgia M79.7 [place] [address] [place] [id number] [place] [address] 12790- 4575 Jul, Generalized anxiety disorder F41.1 [place] [address] [place] [id number] [place] [address] 28415- 0204 May, [place] [address] [place] [id number] [place] [address] 77764- 8402 May, Hypothyroid E03.9 [place] [address] [place] [id number] [place] [address] 82791- 2887 08 May, 2016 Chronic kidney disease, stage 4 (severe) N18.4 ; Hypothyroid E03.9 ; Restless leg G25.81 ; Fibromyalgia M79.7 ; Essential ( primary) hypertension I10 ; Vitamin D deficiency E55.9 ; Dyspepsia R10.13 ; Acute non-recurrent maxillary sinusitis J01.00 ; Anemia in chronic kidney disease D63.1 ; Chronic kidney disease, unspecified N18.9 and Coronary artery disease involving [place] coronary artery of [place] heart, angina presence unspecified I25.10 [facility] [address] [place] [address] 34195- 3249 02 May, 2016 Vitamin D deficiency, unspecified E55.9 [facility] [address] [place] [address] 01814- 8809 May, Generalized anxiety disorder F41.1 and Major depressive disorder, recurrent episode with anxious distress F33.9 [facility] [address] [place] [id number] [place] [address] 15265- 1295 Apr, Pain in right knee M25.561 and Pain in left knee M25.562 [facility] [address] [place] [id number] [place] [address] 34610- 8705 Apr, [facility] [address] [place] [id number] [place] [address] 73782- 0931 Apr, [facility] [address] [place] [address] 02661- 3696 Apr, [facility] [address] [place] [id number] [place] [address] 58287- 8560 Mar, Generalized anxiety disorder F41.1 and Major depressive disorder, recurrent episode with anxious distress F33.9 [facility] [address] [place] [address] 42600- 4059 Mar, Generalized anxiety disorder F41.1 and Major depressive disorder, recurrent episode with anxious distress F33.9 [facility] [address] [address]- 8306 Mar, [facility] [address] [place] [id number] [place] [address] 41990- 4144 Mar, [facility] [address] [place] [address] 10884- 5604 Mar, [facility] [address] 43369- 3507 Mar, Asthma J45.909 and Fibromyalgia M79.7 [place] [address] 81348 2546 Mar, Chronic kidney disease, stage 4 (severe) N18.4 ; Vitamin D deficiency E55.9 and Essential (primary) hypertension I10 [place] [address] 95559- 3759 Feb, [place] [address] 34554- 5073 Feb, Dysuria R30.0 ; Mixed stress and urge urinary incontinence N39.46 ; Fibromyalgia M79.7 and Chronic kidney disease, stage IV (severe) N18.4 [place] [address] 33445- 0415 Feb, Chronic kidney disease, stage 4 (severe) N18.4 [place] [address] 53732- 4936 Feb, Chronic kidney disease, stage 4 (severe) N18.4 [place] [address] 93495- 8165 Feb, [place] [address] 62203- 2794 Feb, Vitamin D deficiency, unspecified E55.9 [place] [address] [place] [id number] [place] [address] 79215- 6110 Jan, [place] [address] 30618- 1704 Jan, [place] [address] 99823- 3347 Dec, [place] [address] 77131- 7843 Dec, Chronic kidney disease, stage 4 (severe) N18.4 [facility] [address] [place] [id number] [place] [address] 54531- 7861 28 Dec, 2015 Dysthymic disorder F34.1 and Generalized anxiety disorder F41.1 [facility] [address] [place] [id number] [place] [address] 03914- 7503 Dec, [facility] [address] [place] [id number] [place] [address] 38205- 3049 Dec, [facility] [address] 06665- 2805 Dec, Dysthymic disorder F34.1 and Generalized anxiety disorder F41.1 [place] [address] 76424- 7273 Dec, Dysuria R30.0 ; Chronic kidney disease, stage 4 (severe) N18.4 ; Hypertension I10 ; Dyspepsia R10.13 ; Yeast dermatitis B37.2 ; Palpitations R00.2 ; Hypothyroid E03.9 ; Functional 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 and Other seasonal allergic rhinitis J30.2 [facility] [address] 50996 -5964 Dec, [facility] [address] [place] [id number] [place] [address] 11265 -8271 Nov, Dysuria R30.0 and Stress incontinence N39.3 [place] [address] [place] [id number] [place] [address] 18278- 5758 Nov, [facility] [address] [place] [id number] [place] [address] 40601- 9298 Nov, [facility] [address] 39110- 1747 Nov, Osteoarthritis of knees, bilateral M17.0 [facility] [address] [place] [id number] [place] [address] 46094- 5901 Nov, Dysthymic disorder F34.1 and Generalized anxiety disorder F41.1 [place] [address] [place] [id number] [place] [address] 59080- 0089 Nov, [facility] [address] [place] [id number] [place] [address] 01906- 4753 Nov, [facility] [id number] [place] [address] [phone] Nov, Urgency of urination R39.15 [facility] [address] [phone] Nov, [facility] [id number] [place] [address] [phone] Nov, Chronic kidney disease, stage 4 (severe) N18.4 [facility] [id number] [place] [address] [id number]- [phone] Oct, Hypertension I10 ; Coronary artery disease involving [place] coronary artery of [place] heart, angina presence unspecified I25.10 ; Palpitations R00.2 ; Hypothyroid E03.9 ; Right foot pain M79.671 ; Functional 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 and Other seasonal allergic rhinitis J30.2 [place] [address] [place] [id number] [place] [address] 14138- 2365 Oct, Dysthymic disorder F34.1 and Generalized anxiety disorder F41.1 [facility] [id number] [place] [address] 43189- 2276 Sep, [facility] [id number] [place] [address] 59000- 3812 Sep, [facility] [id number] [place] [address] 09213- 1333 Sep, [facility] [id number] [place] [address] 98733- 3918 Sep, [facility] [id number] [place] [address] 32094- 6213 Sep, [facility] [id number] [place] [address] 73097- 1934 Sep, 2015 Dysthymic disorder F34.1 and Generalized anxiety disorder F41.1 [place] [id number] [place] [address] 59162- 6032 16 Sep, 2015 Asthma with acute exacerbation in adult J45.901 ; Dysuria R30.0 ; Chronic kidney disease, stage 4 (severe) N18.4 and History of anemia Z86.2 [place] [address] [address]42- 2018 2015 Generalized anxiety disorder F41.1 and Dysthymic disorder F34.[address] 14030- 9193 August, Screening breast examination Z12.39 and Acute recurrent maxillary sinusitis J01.[address] 65976- 1815 August, Osteoarthritis of knees, bilateral M17.[address] 79408- 1117 August, Chronic kidney disease, stage 4 (severe) N18.4 ; Acute non- recurrent maxillary sinusitis J01.00 ; Urinary problem R39.89 ; Bowel habit changes R19.4 ; Functional 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 and History of colon polyps Z86.010 [place] [id number] [place] [address] 50981- 3704 Jul, Dysthymic disorder F34.1 and Generalized anxiety disorder F41.1 [place] [id number] [place] [address] 00701- 8769 Jul, [address] 53093- 6376 Jul, Dysthymic disorder F34.1 ; Generalized anxiety disorder F41.1 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 [place] [id number] [place] [address] 41884- 0672 Jul, [address] [id number] [address] 9803 Jun, [facility] [id number] [place] [address] 87638- 3603 Jun, [facility] [id number] [place] [address] 17216- 3593 May, [facility] [id number] [place] [address] 00841- 9709 May, Dysthymic disorder F34.1 and Generalized anxiety disorder F41.1 [facility] [id number] [place] [address] 27619- 9268 Apr, Kidney disease N28.9 [facility] [id number] [place] [address] 54587- 7442 Apr, Generalized anxiety disorder F41.1 and Dysthymic disorder F34.1 [place] [id number] [place] [address] 16087- 8790 Apr, Chronic kidney disease, stage 4 (severe) N18.4 [facility] [id number] [place] [address] 60030- 3516 Apr, Generalized anxiety disorder F41.1 ; Major depression, recurrent F33.9 and Sleep disturbance G47.9 [place] [id number] [place] [address] 25791- 3120 Mar, Generalized anxiety disorder F41.1 and Dysthymic disorder F34.1 [facility] [id number] [place] [address] 47203- 6028 Mar, Generalized anxiety disorder F41.1 ; Dysthymic disorder F34.1 and Insomnia G47.00 [facility] [id number] [place] [address] 36675- 8011 Mar, [facility] [id number] [place] [address] 61475- 0852 Mar, [facility] [place] [id number] [place] [address] 13231- 4899 17 Mar, 2015 Osteoarthritis of knees, bilateral M17.[address] 91760- 8464 Mar, Hypertension I10 ; Hypothyroid E03.9 ; Dysthymic disorder F34.1 ; Chronic kidney disease, stage 4 (severe) N18.4 and Nausea & vomiting R11.[address] 30393- 7644 Mar, Generalized anxiety disorder F41.1 ; Dysthymic disorder F34.1 and Insomnia G47.[address] 16793- 3553 Mar, Dehydration E86.0 ; Chronic kidney disease, stage 4 (severe ) N18.4 and Nausea & vomiting R11.2 [facility] [id number] [place] [address] 12204 -9612 08 Mar, 2015 Gastroenteritis K52.9 [place] [id number] [place] [address] 81943- 7759 Mar, [place] [id number] [place] [address] 59999- 8230 Mar, [place] [id number] [place] [address] 13968- 2871 Feb, Dysthymic disorder F34.1 and Generalized anxiety disorder F41.1 [place] [id number] [place] [address] 53709- 7522 Jan, UTI (urinary tract infection) N39.0 ; Asthma J45.909 ; Coronary artery disease involving [place] coronary artery of [place] heart, angina presence unspecified I25.10 ; Hypertension I10 ; Hypothyroid E03.9 ; Vitamin D deficiency E55.9 ; Insomnia G47.00 ; Palpitations R00.2 ; Depressed F32.9 ; Restless leg G25.81 and Anxiety F41.9 [place] [id number] [place] [address] 02682- 1317 Jan, Dysthymic disorder F34.1 and Generalized anxiety disorder F41.1 [place] [id number] [place] [address] 21130- 7363 Jan, [place] [id number] [place] [address] 79566- 3609 Dec, [place] [address] 07959- 4188 28 Dec, 2014 Alkalosis 276.3 ; Chronic kidney disease, 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.4 ; Hyperpotassemia 276.7 ; Secondary hyperparathyroidism, renal 588.81 ; Proteinuria 791.0 ; Unspecified vitamin D deficiency 268.9 ; Anemia in chronic kidney disease 285.21 ; Other and unspecified hyperlipidemia 272.4 ; Hypertension, essential, benign 401.1 and Chronic kidney disease (CKD), stage III (moderate) 585.3 [place] [id number] [place] [address] 87268- 8076 16 Dec, 2014 [place] [id number] [place] [address] 78338- 4082 Dec, Depressive disorder, not elsewhere classified 311 and Generalized anxiety disorder 300.02 [place] [id number] [place] [address] 92717- 0940 10 Dec, 2014 [place] [id number] [place] [address] 61074- 5476 08 Dec, 2014 [place] [id number] [place] [address] 84353- 2727 Nov, Depressive disorder, not elsewhere classified 311 and Generalized anxiety disorder 300.02 [place] [id number] [place] [address] 70615- 6652 Nov, Arthritis of both knees 716.96 [place] [id number] [place] [address] 31798- 0329 Nov, PAF (paroxysmal atrial fibrillation) 427.31 ; CAD (coronary artery disease) 414.00 ; Chest pain 786.50 and Chronic kidney disease (CKD) stage G4/A1, severely decreased glomerular filtration rate (GFR) between 15-29 mL/min/1.73 square meter and albuminuria creatinine ratio less than 30 mg/g 585.4 [place] [address] [place] [address] 94717- 3765 Oct, Coronary atherosclerosis of unspecified type of vessel, [place] or graft 414.00 ; Chronic kidney disease, 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.4 ; Hypertension 401.9 and Edema 782.3 [place] [id number] [place] [address] 84562- 9529 Oct, Depressive disorder, not elsewhere classified 311 and Generalized anxiety disorder 300.02 [place] [id number] [place] [address] 58293- 1071 Oct, Depressive disorder, not elsewhere classified 311 and Generalized anxiety disorder 300.02 [place] [id number] [place] [address] 35993- 8755 Oct, [place] [id number] [place] [address] 56377- 5391 Oct, [place] [id number] [place] [address] 37904- 3801 Sep, [place] [id number] [place] [address] 64867- 8137 Sep, Chronic kidney disease, 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.4 [place] [id number] [place] [address] 44164- 0378 Sep, [place] [id number] [place] [address] 80051- 0566 Sep, Coronary atherosclerosis of unspecified type of vessel, [place] or graft 414.00 ; Hypertension 401.9 ; Edema 782.3 and Hypothyroidism 244.9 [place] [id number] [place] [address] 68078- 6181 Sep, Coronary atherosclerosis of unspecified type of vessel, [place] or graft 414.00 ; Hypertension 401.9 ; Fibromyalgia 729.1 ; Edema 782.3 ; Hypothyroidism 244.9 and Anemia 285.9 [facility] [id number] [place] [address] 24668- 5586 Sep, Anxiety disorder, unspecified 300.00 and Depressive disorder , not elsewhere classified 311 [facility] [id number] [place] [address] 62842- 7905 Sep, [facility] [address] 62940- 8948 August, Generalized anxiety disorder 300.02 [facility] [address] 34243- 7281 August, Closed fracture of lateral malleolus 824.2 [facility] [id number] [place] [address] 56451- 4957 Jul, [facility] [id number] [place] [address] 19786- 8456 Jul, [facility] [id number] [place] [address] 06757- 2117 Jun, [facility] [id number] [place] [address] 20442- 1584 Jun, [facility] [id number] [place] [address] 49961- 4113 Jun, [facility] [id number] [place] [address] 44107- 9194 Jun, [facility] [id number] [place] [address] 82361- 4773 Jun, [facility] [id number] [place] [address] 25565- 2431 Jun, [facility] [id number] [place] [address] [id number]- 5121 May, [facility] [id number] [place] [address] [place] [address]- 9306 19 May, 2014 [facility] [place] [facility] [address] [id number] [place] [address]- 5146 18 May, 2014 [facility] [place] [facility] [address] [id number] [place] [address]- 0936 18 May, 2014 [facility] [place] [facility] [address] [id number] [place] [address]- 6236 16 May, 2014 [facility] [place] [facility] [address] [id number] [place] [address]- 2546 16 May, 2014 [facility] [place] [facility] [address] [id number] [place] [address]- 7696 13 May, 2014 [facility] [place] [facility] [address] [id number] [place] [address]- 0636 13 May, 2014 [facility] [place] [facility] [address] [id number] [place] [address]- 7901 10 May, 2014 [facility] [place] [facility] [address] [id number] [place] [address]- 8695 10 May, 2014 [facility] [place] [facility] [address] [id number] [place] [address]- 0069 Apr, [facility] [place] [facility] [address] [id number] [place] [address]- 5747 Apr, [facility] [place] [facility] [address] [id number] [place] [address]- 4327 Mar, [facility] [place] [facility] [address] [id number] [place] [address]- 2547 Mar, [facility] [place] [facility] [address] [id number] [place] [address]- 2546 Mar, [facility] [place] [facility] [address] [id number] [place] [address]- 2546 Mar, [facility] [place] [facility] [address] [id number] [place] [address]- 7856 Mar, [facility] [place] [facility] [address] [id number] [place] [address]- 8969 Mar, [facility] [place] [facility] [address] [id number] [place] [address]- 9902 Mar, [facility] [place] [facility] [address] [id number] [place] [address]- 6632 Feb, [facility] [place] [facility] [address] [id number] [place] [address]- 8439 Feb, [facility] [place] [facility] [address] [id number] [place] [address]- 4356 Feb, [facility] [place] [facility] [address] [id number] [place] [address]- 3438 Jan, [facility] [place] [facility] [address] [id number] [place] [address]- 1535 Jan, [facility] [place] [facility] [address] [id number] [place] [address]- 1944 Jan, [facility] [place] [facility] [address] [id number] [place] [address]- 3398 Jan, [facility] [place] [facility] [address] [id number], [place] [address]- 2745 Jan, [facility] [place] [facility] [address] [id number], [place] [address]- 5274 Jan, [facility] [place] [facility] [address] [id number], [place] [address]- 0414 Jan, [facility] [place] [facility] [address] [id number] [place] [address]- 3844 Jan, [facility] [place] [facility] [address] [id number], [place] [address]- 0458 Jan, [facility] [place] [facility] [address] [id number] [place] [address]- 1764 Jan, [facility] [place] [facility] [address] [id number] [place] [address]- 9330 Nov, [facility] [place] [facility] [address] [id number] [place] [address]- 0256 Nov, [facility] [place] [facility] [address] [id number] [place] [address]- 8804 Nov, [facility] [place] [facility] [address] [id number] [place] [address]- 1306 Oct, [facility] [place] [facility] [address] [id number] [place] [address]- 7740 Oct, [facility] [place] [facility] [address] [id number] [place] [address]- 8605 Oct, [facility] [place] [facility] [address] [id number] [place] [address]- 5345 Oct, [facility] [place] [facility] [address] [id number] [place] [address]- 7768 Oct, [facility] [place] [facility] [address] [id number] [place] [address]- 1661 Oct, [facility] [place] [facility] [address] [id number] [place] [address]- 0007 Oct, [facility] [place] [facility] [address] [id number] [place] [address]- 3046 Oct, [facility] [place] [facility] [address] [id number] [place] [address]- 8647 Oct, [facility] [place] [facility] [address] [id number] [place] [address]- 0679 Sep, [facility] [place] [facility] [address] [id number] [place] [address]- 6894 Sep, [facility] [place] [facility] [address] [id number] [place] [address]- 7398 Sep, [facility] [place] [facility] [address] [id number] [place] [address]- 2774 Sep, [facility] [place] [facility] [address] [id number] [place] [address]- 3606 Sep, [facility] [place] [facility] [address] [id number] [place] [address]- 4359 Sep, [facility] [place] [facility] [address] [id number] [place] [address]- 6254 Sep, [facility] [place] [facility] [address] [id number] [place] [address]- 2650 Sep, [facility] [place] [facility] [address] [id number] [place] [address]- 3077 Sep, [facility] [place] [facility] [address] [id number] [place] [address]- 8213 August, [facility] [place] [facility] [address] [id number] [place] [address]- 1667 August, [facility] [place] [facility] [address] [id number] [place] [address]- 4808 August, [facility] [place] [facility] [address] [id number] [place] [address]- 2074 August, [facility] [place] [facility] [address] [id number] [place] [address]- 7871 August, [facility] [place] [facility] [address] [id number] [place] [address]- 3777 August, [facility] [place] [facility] [address] [id number] [place] [address]- 4760 Jul, [facility] [place] [facility] [address] [id number] [place] [address]- 0096 Jul, [facility] [place] [facility] [address] [id number] [place] [address]- 6209 Jul, [facility] [place] [facility] [address] [id number] [place] [address]- 8867 Jul, [facility] [place] [facility] [address] [id number] [place] [address]- 1910 Jul, [facility] [place] [facility] [address] [id number] [place] [address]- 4783 Jul, [facility] [place] [facility] [address] [id number] [place] [address]- 2340 Jun, [facility] [place] [facility] [address] [id number] [place] [address]- 4293 Jun, [facility] [place] [facility] [address] [id number] [place] [address]- 4749 May, [facility] [place] [facility] [address] [id number] [place] [address]- 9038 May, [facility] [place] [facility] [address] [id number] [place] [address]- 7066 May, [facility] [place] [facility] [address] [id number] [place] [address]- 4820 May, [facility] [place] [facility] [address] [id number] [place] [address]- 9206 Apr, [facility] [place] [facility] [address] [id number] [place] [address]- 7751 Apr, [facility] [place] [facility] [address] [facility] [id number] [place] [address]- 3130 Mar, [facility] [place] [facility] [address] [id number] [place] [address]- 8660 18 Mar, 2013 [facility] [place] [facility] [address] [id number] [place] [address]- 3678 17 Mar, 2013 [facility] [place] [facility] [address] [id number] [place] [address]- 7486 Mar, [facility] [place] [facility] [address] [id number] [place] [address]- 5105 05 Mar, 2013 [facility] [place] [facility] [address] [facility] [id number] [place] [address]- 3683 05 Mar, 2013 [facility] [place] [facility] [address] [id number] [place] [address]- 6050 Feb, [facility] [place] [facility] [address] [id number] [place] [address]- 2066 Feb, [facility] [place] [facility] [address] [id number] [place] [address]- 6160 Feb, [facility] [place] [facility] [address] [id number] [place] [address]- 3321 Feb, [facility] [place] [facility] [address] [id number] [place] [address]- 6246 Feb, [facility] [place] [facility] [address] [id number] [place] [address]- 1155 Feb, [facility] [place] [facility] [address] [id number] [place] [address]- 5021 Jan, [facility] [place] [facility] [address] [id number] [place] [address]- 2359 Jan, [facility] [place] [facility] [address] [id number] [place] [address]- 4133 Jan, [facility] [place] [facility] [address] [id number] [place] [address]- 8195 Jan, [facility] [place] [facility] [address] [id number] [place] [address]- 1033 Jan, [facility] [place] [facility] [address] [id number] [place] [address]- 9400 Jan, [facility] [place] [facility] [address] [id number] [place] [address]- 1380 Dec, [facility] [place] [facility] [address] [id number] [place] [address]- 7127 Dec, [facility] [place] [facility] [address] [id number] [place] [address]- 2546 Nov, [facility] [place] [facility] [address] [id number] [place] [address]- 3869 Nov, [facility] [address] [id number] [place] [address]- 3331 Oct, [facility] [place] [facility] [address] [id number] [place] [address]- 3236 Oct, [facility] [place] [facility] [address] [id number] [place] [address]- 6719 Oct, [facility] [place] [facility] [address] [id number] [place] [address]- 3248 Oct, [facility] [address] [id number] [place] [address]- 8772 Oct, [facility] [place] [facility] [address] [id number] [place] [address] Oct, [facility] [place] [facility] [address] [id number] [place] [address] Sep, [facility] [place] [facility] [address] [id number] [place] [address] Sep, [facility] [place] [facility] [address] [id number] [place] [address] Sep, [facility] [place] [facility] [address] [id number] [place] [address] Sep, [facility] [place] [facility] [address] [id number] [place] [address] August, [facility] [place] [facility] [address] [id number] [place] [address] August, [facility] [place] [facility] [address] [id number] [place] [address] August, [facility] [place] [facility] [address] [id number] [place] [address] August, [facility] [place] [facility] [address] [id number] [place] [address] August, [facility] [place] [facility] [address] [id number] [place] [address] Jul, [facility] [address] [id number] [place] [address] Jul, [facility] [address] [id number] [place] [address] Jul, [facility] [address] [id number] [place] [address] Jul, [facility] [place] [facility] [address] [id number] [place] [address] Jul, [facility] [address] [id number] [place] [address] Jul, [facility] [address] [id number] [place] [address] Jul, [facility] [address] [id number] [place] [address] Jul, [facility] [address] [id number] [place] [address] Jul, [facility] [address] [id number] [place] [address] Jul, [facility] [address] [id number] [id number] Jun, [facility] [address] [id number] [place] [address] Jun, [facility] [place] [facility] [address] [id number] [address] Jun, [facility] [place] [facility] [address] [id number] [place] [address] Jun, [facility] [place] [facility] [address] [id number] [place] [address] Jun, [facility] [place] [facility] [address] [id number] [place] [address] May, [facility] [place] [facility] [address] [id number] [place] [address] 18 May, 2012 [facility] [address] [id number] [place] [address] May, [facility] [place] [facility] [address] [id number] [place] [address] Apr, [facility] [place] [facility] [address] [id number] [place] [address] Apr, [facility] [place] [facility] [address] [id number] [place] [address] Apr, [facility] [place] [facility] [address] [id number] [place] [address] Apr, [facility] [place] [facility] [address] [id number] [place] [address] Apr, [facility] [place] [facility] [address] [id number] [place] [address] Apr, [facility] [address] [id number] [place] [address] Mar, [facility] [place] [facility] [address] [id number] [place] [address] Mar, [facility] [address] [id number] [place] [address] Mar, [facility] [place] [facility] [address] [id number] [place] [address] Mar, [facility] [place] [facility] [address] [id number] [place] [address] Feb, [facility] [place] [facility] [address] [id number] [place] [address] Feb, [facility] [place] [facility] [address] [id number] [place] [address] Feb, [facility] [place] [facility] [address] [id number] [place] [address] Feb, [facility] [place] [facility] [address] [id number] [place] [address] Feb, [facility] [place] [facility] [address] [id number] [place] [address] Feb, [facility] [place] [facility] [address] [facility] [id number] [place] [address] Feb, [facility] [place] [facility] [address] [id number] [place] [address] Feb, [facility] [place] [facility] [address] [id number] [place] [address] 164[address] Feb, [facility] [place] [facility] [address] [id number] [place] [address] Feb, [facility] [place] [facility] [address] [facility] [id number] [place] [address] Feb, [facility] [place] [facility] [address] [id number], [place] [address] Feb, [facility] [place] [facility] [address] [id number], [place] [address] Feb, [facility] [place] [facility] [address] [facility] [id number], [place] [address] Feb, [facility] [place] [facility] [address] [facility] [id number], [place] [address] Feb, [facility] [place] [facility] [address] [id number], [place] [address] Feb, [facility] [place] [facility] [address] [id number], [place] [address] Jan, [facility] [place] [facility] [address] [id number], [place] [address] Jan, [facility] [place] [facility] [address] [facility] [id number], [place] [address] Jan, [facility] [place] [facility] [address] [id number] [place] [address] 31 Jan, 2012 [facility] [place] [facility] [address] [id number] [place] [address] 3716 30 Jan, 2012 [facility] [place] [facility] [address] [id number] [place] [address] 25 Jan, 2012 [facility] [place] [facility] [address] [id number] [place] [address] 25 Jan, 2012 [facility] [place] [facility] [address] [id number] [place] [address] 2546 16 Jan, 2012 [facility] [place] [facility] [address] [id number] [place] [address] 6111 16 Jan, 2012 [facility] [place] [facility] [address] [id number] [place] [address] 4920 15 Jan, 2012 [facility] [place] [facility] [address] [id number] [place] [address]- 0841 15 Jan, 2012 [facility] [place] [facility] [address] [id number] [place] [address] 1419 Jan, [facility] [place] [facility] [address] [id number] [place] [address] 2546 26 Sep, 2011 [facility] [place] [facility] [address] [facility] [id number] [place] [address] 2540 26 Sep, 2011 [facility] [place] [facility] [address] [id number] [place] [address] 2546 24 Sep, 2011 [facility] [place] [facility] [address] [id number] [place] [address] 2546 23 Sep, 2011 [facility] [place] [facility] [address] [id number] [place] [address] 2546 22 Sep, 2011 [facility] [place] [facility] [address] [facility] [id number] [place] [address] 2546 21 Sep, 2011 [facility] [place] [facility] [address] [id number] [place] [address] 2549 20 Sep, 2011 [facility] [place] [facility] [address] [id number] [place] [address]240 20 Dec, 2011 [facility] [place] [facility] [address] [id number] [place] [address] 8274 Dec, 2011 [facility] [place] [facility] [address] [id number] [place] [address]- 7426 06 Dec, 2011 [facility] [place] [facility] [address] [id number] [place] [address]- 1657 06 Dec, 2011 [facility] [place] [facility] [address] [id number] [place] [address]- 6266 05 Dec, 2011 [facility] [place] [facility] [address] [id number] [place] [address] 6439 Nov, [facility] [place] [facility] [address] [id number] [place] [address] 5939 Nov, [facility] [place] [facility] [address] [id number] [place] [address] 1054 Nov, [facility] [place] [facility] [address] [id number] [place] [address] 8917 Nov, [facility] [place] [facility] [address] [id number] [place] [address]- 4205 Nov, [facility] [place] [facility] [address] [id number] [place] [address]- 1504 Nov, [facility] [place] [facility] [address] [id number] [place] [address]- 3844 Nov, [facility] [place] [facility] [address] [id number] [place] [address] Nov, [facility] [place] [facility] [address] [id number] [place] [address] 5724 Oct, [facility] [place] [facility] [address] [id number] [place] [address]- 2265 Oct, [facility] [place] [facility] [address] [id number] [place] [address]- 4115 Oct, [facility] [place] [facility] [address] [id number] [place] [address]- 6691 Oct, [facility] [place] [facility] [address] [id number] [place] [address]- 5836 Oct, [facility] [place] [facility] [address] [id number] [place] [address]- 0776 Oct, [facility] [place] [facility] [address] [id number] [place] [address]- 9161 Oct, [facility] [place] [facility] [address] [id number] [place] [address]- 0051 Sep, [facility] [place] [facility] [address] [id number] [place] [address]- 4807 Sep, [facility] [place] [facility] [address] [id number] [place] [address]- [address]507 August, [facility] [place] [facility] [address] [id number] [place] [address]- 1030 August, [facility] [place] [facility] [address] [id number] [place] [address]- 1345 August, [facility] [place] [facility] [address] [id number] [place] [address]- 5945 August, [facility] [place] [facility] [address] [id number] [place] [address]- 8067 Jul, [facility] [place] [facility] [address] [id number] [place] [address]- 1759 Jul, [facility] [place] [facility] [address] [id number] [place] [address]- 9618 Jul, [facility] [place] [facility] [address] [id number] [place] [address]- 4791 Jul, [facility] [place] [facility] [address] [id number] [place] [address]- 6543 Jul, [facility] [place] [facility] [address] [id number] [place] [address]- 3907 04 Jul, 2011 [facility] [address] [id number] [place] [address] 3540 Jul, [facility] [place] [facility] [address] [id number] [place] [address]- 9196 Jul, [facility] [address] [id number] [place] [address]- 3324 Jul, [facility] [address] [id number] [place] [address]- 0469 23 Jun, 2011 [facility] [address] [id number] [place] [address]- 4788 19 Jun, 2011 [facility] [address] [id number] [place] [address]- 9699 15 Jun, 2011 [facility] [address] [id number] [place] [address]- 1827 14 Jun, 2011 [facility] [address] [id number] [place] [address]- 0543 12 Jun, 2011 [facility] [address] [id number] [place] [address]- 4318 Jun, [facility] [address] [id number] [place] [address]- 7662 Jun, [facility] [place] [facility] [address] [id number] [place] [address]- 5073 25 May, 2011 [facility] [address] [id number] [place] [address]- 9034 24 May, 2011 [facility] [place] [facility] [address] [id number] [place] [address]- 7886 16 May, 2011 [facility] [place] [facility] [address] [id number] [place] [address]- 1246 16 May, 2011 [facility] [place] [facility] [address] [id number] [place] [address] 2254 May, [facility] [address] [id number] [place] [address]- 2489 Apr, [facility] [place] [facility] [address] [id number] [place] [address]- 4426 Apr, [facility] [place] [facility] [address] [facility] [id number] [place] [address]- 2546 Apr, [facility] [place] [facility] [address] [id number] [place] [address]- 2546 Apr, [facility] [place] [facility] [address] [id number] [place] [address]- 2546 Apr, [facility] [place] [facility] [address] [id number] [place] [address]- 6146 Mar, [facility] [place] [facility] [address] [id number] [place] [address]- 1946 Mar, [facility] [place] [facility] [address] [id number] [place] [address]- 0454 Mar, [facility] [place] [facility] [address] [id number] [place] [address]- 0502 Mar, [facility] [place] [facility] [address] [facility] [id number] [place] [address]- 1848 Mar, [facility] [place] [facility] [address] [facility] [id number], [place] [address]- 1026 Mar, [facility] [place] [facility] [address] [id number], [place] [address]- 2546 Mar, [facility] [place] [facility] [address] [id number] [place] [address]- 2543 Feb, [facility] [place] [facility] [address] [id number] [place] [address]- 8456 Feb, [facility] [place] [facility] [address] [facility] [id number] [place] [address]- 2546 Feb, [facility] [place] [facility] [address] [id number] [place] [address]- 2193 Feb, [facility] [place] [facility] [address] [id number] [place] [address]- 1866 Jan, [facility] [place] [facility] [address] [id number] [place] [address] 2546 Jan, [facility] [place] [facility] [address] [id number] [place] [address]- 9916 Jan, [facility] [place] [facility] [address] [id number] [place] [address] 2546 Jan, [facility] [place] [facility] [address] [id number] [place] [address]- 1311 Nov, [facility] [place] [facility] [address] [id number] [place] [address]- 8995 Mar, [facility] [place] [facility] [address] [id number] [place] [address]- 1750 Mar, [facility] [place] [facility] [address] [id number] [place] [address]- 8358 Mar, [facility] [place] [facility] [address] [id number] [place] [address] 2540 Mar, [facility] [place] [facility] [address] [facility] [id number] [place] [address] 2541 Mar, [facility] [place] [facility] [address] [id number] [place] [address] 2546 Mar, [facility] [place] [facility] [address] [id number] [place] [address] 2548 Feb, [facility] [place] [facility] [address] [id number] [place] [address] 2546 Feb, [facility] [place] [facility] [address] [id number] [place] [address] 2546 28 Jan, 2009 [facility] [place] [facility] [address] [id number] [place] [address] 2540 Jan, [facility] [address] [facility] [id number] [place] [address]- 0844 Jan, IMMUNIZATIONS No Known Immunizations SOCIAL HISTORY Never Assessed REASON FOR VISIT Refill request PLAN OF CARE VITAL SIGNS MEDICATIONS Medication Instructions Dosage Frequency Start Date End Date Duration Status Lyrica 150 MG Orally 2 times a day 1 capsule 12h 28 days Active Nystatin 941035 UNIT/ML Mouth/Throat Four times a day 4 ml 6h Active RESULTS No Results PROCEDURES No Known [...] & 2007 Surgical History Bladder surgery [facility] 03/2016 Surgical History 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
--- OUTSIDE RECORDS SUMMARY | 2018-05-29 07:56 | XMS REPORT ---
Author Author ZHANE BOSCH [facility] Address [address] [place] [address] Care Team Providers Care District Loss Prevention Manager Name Role Phone ZHANE BOSCH Unavailable PROBLEMS Type Condition ICD9-CM Code SBV28-ZJ Code Onset Dates Condition Status SNOMED Code Problem Low back pain M54.5 Active 662284289 Problem Abnormal chest CT R93.8 Active 883608706 Problem Dysthymic disorder F34.1 Active 06843405 Problem Generalized anxiety disorder F41.1 Active 01744955 Problem Coronary artery disease involving [place] coronary artery of [place] heart, angina presence unspecified I25.10 Active 4515561663407 Problem Restless leg G25.81 Active 47013941 Problem Hypothyroid E03.9 Active 93104889 Problem Insomnia G47.00 Active 767291916 Problem Asthma J45.909 Active 804216346 Problem Chronic kidney disease, unspecified N18.9 Active 419607944 Problem Palpitations R00.2 Active 73080981 Problem Anemia in chronic kidney disease D63.1 Active [id number] Problem Depressed F32.9 Active 19370474 Problem Bipolar disorder, current episode manic without psychotic features F31.10 Active 963326695 Problem Primary osteoarthritis of left knee M17.12 Active 415699909 Problem Degenerative tear of medial meniscus of left knee M23.204 Active 672846739 Problem Chronic pain syndrome G89.4 Active 187995161 Problem Restless leg syndrome G25.81 Active 53144891 Problem History of colon polyps Z86.010 Active 506078214 Problem Functional 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 Active 07538762 Problem Chronic kidney disease, stage 4 (severe) N18.4 Active 546006362 Problem Stage 3 chronic kidney disease N18.3 Active 631202140 Problem Mood disorder F39 Active 49790964 Problem Seasonal allergic rhinitis due to pollen J30.1 Active 08957154 Problem Body mass index (BMI) of 40.0-44.9 in adult Z68.41 Active 102447341 Problem Other seasonal allergic rhinitis J30.2 Active 221593019 Problem Long-term use of high-risk medication Z79.899 Active 058406814 Problem Hypokalemia E87.6 Active 24817836 Problem Asthma with acute exacerbation in adult J45.901 Active 274059951 Problem History of anemia Z86.2 Active 169413822 Problem Vitamin D deficiency E55.9 Active 81592025 Problem Essential (primary) hypertension I10 Active 79645826 Problem Fibromyalgia M79.7 Active 264000275 Problem Mixed stress and urge urinary incontinence N39.46 Active 724079639 ALLERGIES No Information ENCOUNTERS Encounter Location Date Diagnosis [place] [address] [address]69[address] Dec, [place] [address] 33100- 2249 Nov, [place] [address] 55899- 2304 Nov, [place] [address] 00482- 0371 Nov, [place] [address] 08143- 2358 Nov, Fibromyalgia M79.7 ; Vision changes H53.9 ; Chest wall pain R07.89 and Chronic pain syndrome G89.4 [place] [address] 35497- 1360 Nov, [place] [address] 38685- 4180 Nov, Rash of hands R21 [place] [address] 00335- 5456 Nov, Generalized anxiety disorder F41.1 and Major depressive disorder, recurrent episode with anxious distress F33.9 [place] [address] 14269- 0523 Nov, Fibromyalgia M79.7 [place] [address] [place] [id number] [place] [address] 64666- 9340 Nov, Complicated UTI (urinary tract infection) N39.0 [facility] [address] [place] [id number] [place] [address] 57366- 0739 Oct, [facility] [address] [place] [id number] [place] [address] 04008- 8269 Oct, Generalized anxiety disorder F41.1 and Major depressive disorder, recurrent episode with anxious distress F33.9 [place] [address] [place] [id number] [place] [address] 84838- 8154 Oct, [place] [address] 06145- 2680 Oct, Fibromyalgia M79.7 [place] [address] [place] [id number] [place] [address] 60010- 6482 Sep, Restless leg syndrome G25.81 and Restless leg G25.81 [place] [address] [place] [id number] [place] [address] 82416- 7090 Sep, [place] [address] [place] [id number] [place] [address] 61511- 6007 Sep, Seasonal allergic rhinitis due to pollen J30.1 ; Screening for breast cancer Z12.31 ; Chest pain at rest R07.9 ; Restless leg syndrome G25.81 ; Essential (primary) hypertension I10 and Depressed F32.9 [place] [address] [place] [id number] [place] [address] 90733- 1515 August, Fibromyalgia M79.7 [facility] [address] [place] [id number] [place] [address] 14576- 5962 August, [place] [address] [place] [id number] [place] [address] 78004- 2972 August, [facility] [address] [place] [id number] [place] [address] 66006- 2276 August, [address] R93.8 [place] [address] [place] [id number] [place] [address] 53440- 5649 August, Generalized anxiety disorder F41.1 and Major depressive disorder, recurrent episode with anxious distress F33.9 [place] [address] 26090- 3349 August, Abnormal chest CT R93.8 [place] [address] 38002- 6644 Jul, [place] [address] 70339- 1670 Jul, Chronic kidney disease, stage 4 (severe) N18.4 [place] [address] 46450- 1252 Jul, [place] [address] 88763- 2032 Jul, Restless leg G25.81 ; Mixed stress and urge urinary incontinence N39.46 and Fibromyalgia M79.7 [place] [address] [place] [id number] [place] [address] 15659- 0188 Jul, Chronic kidney disease, stage 4 (severe) N18.4 [place] [address] [place] [id number] [place] [address] 79783- 3852 Jun, Orthostatic hypotension I95.1 ; Chronic kidney disease, stage 4 (severe) N18.4 ; Chest wall discomfort R07.89 and Body mass index (BMI) of 40.0-44.9 in adult Z68.41 [place] [address] [place] [id number] [place] [address] 56951- 0370 Jun, [place] [address] 65592- 6570 Jun, Orthostatic hypotension I95.1 [place] [address] [place] [id number] [place] [address] 61424- 4879 Jun, [facility] [address] 39327 -7230 Jun, Orthostatic hypotension I95.1 ; Dysuria R30.0 and Acute cystitis without hematuria N30.00 [facility] [address] [place] [id number] [place] [address] 96001- 0488 Jun, [facility] [address] [place] [id number] [place] [address] 28762- 8628 Jun, Chronic kidney disease, stage 4 (severe) N18.4 [facility] [address] [place] [id number] [place] [address] 61437 2545 Jun, Fibromyalgia M79.7 [facility] [address] [place] [id number] [place] [address] 80480- 8486 Jun, [facility] [address] [place] [id number] [place] [address] 17217- 2115 Jun, [facility] [address] [place] [id number] [place] [address] 95193- 38[address] May, [address] R93.8 and Stage 3 chronic kidney disease N18.3 [facility] [address] [place] [id number] [place] [address] 81000- 2618 May, Chronic kidney disease, stage 4 (severe) N18.4 [facility] [address] [place] [id number] [place] [address] 08296- 4984 May, Chronic kidney disease, stage 4 (severe) N18.4 [facility] [id number] [place] [address] 46188- [address] May, [address] R93.8 [facility] [address] [place] [id number] [place] [address] 80296- 3396 May, [facility] [address] [place] [id number] [place] [address] 84924- 5498 May, [facility] [address] [place] [id number] [place] [address] 89005- 2964 May, Generalized anxiety disorder F41.1 and Major depressive disorder, recurrent episode with anxious distress F33.9 [facility] [address] [place] [address] 08012- 1578 May, Mood disorder F39 [facility] [id number] [place] [address] 88454- 9078 Apr, [facility] [address] [place] [id number] [place] [address] 16932- 4678 Apr, Infected skin lesion L08.9 and Muscle strain of right shoulder region, initial encounter S46.911A [place] [address] [place] [id number] [place] [address] 57093- 4637 Apr, Generalized anxiety disorder F41.1 and Major depressive disorder, recurrent episode with anxious distress F33.9 [place] [address] [place] [id number] [place] [address] 65532- 0701 Apr, [facility] [address] [place] [id number] [place] [address] 32478- 2128 Apr, Recent urinary tract infection Z87.440 and Hypothyroid E03.9 [place] [address] [place] [id number] [place] [address] 20242- 4691 Apr, Generalized anxiety disorder F41.1 and Major depressive disorder, recurrent episode with anxious distress F33.9 [place] [address] [place] [address] 74760- 6473 Apr, Recent urinary tract infection Z87.440 [facility] [address] [place] [address] 66982- 1829 Mar, [facility] [address] [place] [id number] [place] [address] 54301 -0077 Mar, Dysuria R30.0 ; Acute cystitis without hematuria N30.00 and BMI 40.0-44.9, adult Z68.41 [place] [id number] [place] [address] 16400- 1326 Mar, [place] [address] [place] [id number] [place] [address] 03722- 4615 Mar, [place] [address] [place] [id number] [place] [address] 02706- 8386 Mar, Generalized anxiety disorder F41.1 and Major depressive disorder, recurrent episode with anxious distress F33.9 [place] [address] [place] [id number] [place] [address] 44064- 6413 Feb, Conjunctivitis, bacterial H10.9 [place] [address] [place] [id number] [place] [address] 42192- 6542 Feb, [facility] Formerly named [facility] [address] 43594 -1050 Feb, Conjunctivitis, bacterial H10.9 [place] [address] [place] [id number] [place] [address] 72874- 9056 Feb, [facility] [address] 18035 -1079 Feb, Dysuria R30.0 ; Acute cystitis N30.00 and BMI 40.0-44.9, adult Z68.41 [place] [address] [place] [id number] [place] [address] 29976- 1072 Feb, [place] [address] [place] [id number] [place] [address] 42591- 1608 Feb, Generalized anxiety disorder F41.1 and Major depressive disorder, recurrent episode with anxious distress F33.9 [place] [address] [place] [id number] [place] [address] 32290- 2773 Feb, Mood disorder F39 and BMI 40.0-44.9, adult Z68.41 [place] [address] [place] [id number] [place] [address] 19851- 2418 Jan, [place] [address] [place] [id number] [place] [address] 95490- 9898 Jan, [place] [address] [place] [address]- 6318 11 Jan, 2017 Hypothyroid E03.9 [place] [address] 10783- 9476 Jan, [place] [address] 56698- 5262 Jan, Chronic kidney disease, unspecified N18.9 ; Hypokalemia E87.6 ; Essential (primary) hypertension I10 ; Fibromyalgia M79.7 ; Coronary artery disease involving [place] coronary artery of [place] heart, angina presence unspecified I25.10 ; Hypothyroid E03.9 and Encounter for immunization Z23 [place] [address] 92647- 4107 Jan, Hypothyroid E03.9 [place] [address] 62633- 2962 Jan, [place] [address] 70800- 0981 Dec, Vitamin D deficiency E55.9 [place] [address] 85604- 5534 Dec, Primary osteoarthritis of left knee M17.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 [place] [address] 75971- 3944 19 Dec, 2016 Fibromyalgia M79.7 [place] [address] 65025- 3892 18 Dec, 2016 Mood disorder F39 [place] [address] 66413- 1574 13 Dec, 2016 [place] [address] 51939- 0614 13 Dec, 2016 Generalized anxiety disorder F41.1 and Major depressive disorder, recurrent episode with anxious distress F33.9 [place] [address] 97090- 3401 11 Dec, 2016 [facility] [address] [address]- 9854 08 Dec, 2016 Streptococcal meningitis G00.2 [facility] [address] [place] [address] 81809- 3761 07 Dec, 2016 Streptococcal meningitis G00.2 [facility] [address] [place] [id number] [place] [address] 61460- 0848 07 Dec, 2016 [facility] [address] [place] [id number] [place] [address] 68514- 3851 06 Dec, 2016 Streptococcal meningitis G00.2 [facility] [address] [place] [id number] [place] [address] 67193- 7324 Dec, [facility] [address] [place] [id number] [place] [address] 50879- 3902 Dec, Major depressive disorder, recurrent episode with anxious distress F33.9 [facility] [address] [place] [id number] [place] [address] 82695- 6063 Nov, Fever, unspecified fever cause R50.9 [facility] [address] [place] [id number] [place] [address] 84355- 3305 Nov, [facility] [address] [place] [id number] [place] [address] 21260- 6339 Nov, Hypothyroid E03.9 [facility] [address] [place] [id number] [place] [address] 81578- 1875 Nov, Generalized anxiety disorder F41.1 and Major depressive disorder, recurrent episode with anxious distress F33.9 [facility] [address] [place] [address] 03946- 6850 Nov, [facility] [address] [place] [address] [id number] Oct, Dental examination Z01.20 [facility] [address] [place] [id number] [place] [address] 28987- 9614 Oct, Generalized anxiety disorder F41.1 and Major depressive disorder, recurrent episode with anxious distress F33.9 [place] [address] [address]- 8800 Oct, Chronic kidney disease, stage 4 (severe) N18.4 [place] [address] [address]- 0210 Oct, [place] [address] [place] [id number] [place] [address] 16748- 9951 Oct, Fibromyalgia M79.7 [place] [address] [place] [address] 56001- 3377 Oct, [place] [address] [place] [address] 89414- 1865 Oct, Generalized anxiety disorder F41.1 ; Major depressive disorder, recurrent episode with anxious distress F33.9 and Bipolar disorder, current episode manic without psychotic features F31.10 [place] [address] [address]- 1510 Sep, [place] [address] [place] [address] 60246- 0912 Sep, [place] [address] [address]- 7774 Sep, Vitamin D deficiency E55.9 [place] [address] [address]- 1529 Sep, Vitamin D deficiency E55.9 [place] [address] [address]- 254 Sep, [place] [address] [place] [id number] [address]- 2370 Sep, Chronic kidney disease, stage 4 (severe) N18.4 ; Hypothyroid E03.9 ; Restless leg G25.81 ; Fibromyalgia M79.7 ; Essential ( primary) hypertension I10 ; Vitamin D deficiency E55.9 ; Dyspepsia R10.13 ; Anemia in chronic kidney disease D63.1 ; Chronic kidney disease, unspecified N18.9 ; Coronary artery disease involving [place] coronary artery of [place] heart , angina presence unspecified I25.10 ; Screening breast examination Z12.39 and Low back pain M54.5 [place] [address] [place] [id number] [place] [address] 41228- 2685 August, Generalized anxiety disorder F41.1 and Major depressive disorder, recurrent episode with anxious distress F33.9 [place] [address] [place] [id number] [place] [address] 18101- 9167 August, Generalized anxiety disorder F41.1 and Major depressive disorder, recurrent episode with anxious distress F33.9 [place] [address] [place] [id number] [place] [address] 87771- 1652 August, Fibromyalgia M79.7 [place] [address] [place] [id number] [place] [address] 64084- 2393 Jul, Generalized anxiety disorder F41.1 and Major depressive disorder, recurrent episode with anxious distress F33.9 [place] [address] [place] [id number] [place] [address] 42870- 5519 Jul, Fibromyalgia M79.7 [place] [address] [place] [id number] [place] [address] 67013- 0094 Jul, Generalized anxiety disorder F41.1 [place] [address] [place] [id number] [place] [address] 15285- 2937 May, [place] [address] [place] [id number] [place] [address] 06154- 3779 May, Hypothyroid E03.9 [place] [address] [place] [id number] [place] [address] 16734- 2891 08 May, 2016 Chronic kidney disease, stage 4 (severe) N18.4 ; Hypothyroid E03.9 ; Restless leg G25.81 ; Fibromyalgia M79.7 ; Essential ( primary) hypertension I10 ; Vitamin D deficiency E55.9 ; Dyspepsia R10.13 ; Acute non-recurrent maxillary sinusitis J01.00 ; Anemia in chronic kidney disease D63.1 ; Chronic kidney disease, unspecified N18.9 and Coronary artery disease involving [place] coronary artery of [place] heart, angina presence unspecified I25.10 [facility] [address] [place] [address] 15137- 9450 02 May, 2016 Vitamin D deficiency, unspecified E55.9 [facility] [address] [place] [address] 42759- 1116 May, Generalized anxiety disorder F41.1 and Major depressive disorder, recurrent episode with anxious distress F33.9 [facility] [address] [place] [id number] [place] [address] 59399- 1453 Apr, Pain in right knee M25.561 and Pain in left knee M25.562 [facility] [address] [place] [id number] [place] [address] 92979- 9909 Apr, [facility] [address] [place] [id number] [place] [address] 11455- 9520 Apr, [facility] [address] [place] [address] 88012- 9553 Apr, [facility] [address] [place] [id number] [place] [address] 90669- 6005 Mar, Generalized anxiety disorder F41.1 and Major depressive disorder, recurrent episode with anxious distress F33.9 [facility] [address] [place] [address] 96144- 5313 Mar, Generalized anxiety disorder F41.1 and Major depressive disorder, recurrent episode with anxious distress F33.9 [facility] [address], [place] [address]- 1616 Mar, [facility] [address] [place] [id number] [place] [address] 66315- 6775 Mar, [facility] [address] [place] [address] 45004- 8879 Mar, [facility] [address] 46154- 4540 Mar, Asthma J45.909 and Fibromyalgia M79.7 [place] [address] 42270 2546 Mar, Chronic kidney disease, stage 4 (severe) N18.4 ; Vitamin D deficiency E55.9 and Essential (primary) hypertension I10 [place] [address] 73975- 7851 Feb, [place] [address] 42671- 0577 Feb, Dysuria R30.0 ; Mixed stress and urge urinary incontinence N39.46 ; Fibromyalgia M79.7 and Chronic kidney disease, stage IV (severe) N18.4 [place] [address] 13277- 9437 Feb, Chronic kidney disease, stage 4 (severe) N18.4 [place] [address] 07336- 1904 Feb, Chronic kidney disease, stage 4 (severe) N18.4 [place] [address] 82824- 4457 Feb, [place] [address] 98901- 1484 Feb, Vitamin D deficiency, unspecified E55.9 [place] [address] [place] [id number] [place] [address] 36527- 2363 Jan, [place] [address] 53427- 4365 Jan, [place] [address] 82244- 5470 Dec, [place] [address] 12899- 5195 Dec, Chronic kidney disease, stage 4 (severe) N18.4 [facility] [address] [place] [id number] [place] [address] 65241- 3074 28 Dec, 2015 Dysthymic disorder F34.1 and Generalized anxiety disorder F41.1 [facility] [address] [id number] [place] [address] 34294- 6083 Dec, [facility] [id number] [place] [address] 20811- 6575 Dec, [facility] [address] 71451- 1777 Dec, Dysthymic disorder F34.1 and Generalized anxiety disorder F41.1 [place] [address] 68860- 0202 Dec, Dysuria R30.0 ; Chronic kidney disease, stage 4 (severe) N18.4 ; Hypertension I10 ; Dyspepsia R10.13 ; Yeast dermatitis B37.2 ; Palpitations R00.2 ; Hypothyroid E03.9 ; Functional 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 and Other seasonal allergic rhinitis J30.2 [facility] [address] [phone] Dec, [facility] [address] [place] [id number] [place] [phone] Nov, Dysuria R30.0 and Stress incontinence N39.3 [place] [address] [place] [id number] [place] [address] Nov, [facility] ([facility] [address] [place] [id number] [place] [address] Nov, [facility] ([facility] [address] [address] Nov, Osteoarthritis of knees, bilateral M17.0 [facility] ([facility] [address] [place] [id number] [place] [address] Nov, Dysthymic disorder F34.1 and Generalized anxiety disorder F41.1 [place] [address] [place] [id number] [place] [address] Nov, [facility] [address] [place] [id number] [place] [phone] Nov, [facility] ([facility] [address] [place] [id number] [place] [address] Nov, Urgency of urination R39.15 [facility] ([facility] [address] [address] Nov, [facility] [id number] [place] [address] 05219- 3196 Nov, Chronic kidney disease, stage 4 (severe) N18.4 [facility] [id number] [place] [address] 42778- 3141 Oct, Hypertension I10 ; Coronary artery disease involving [place] coronary artery of [place] heart, angina presence unspecified I25.10 ; Palpitations R00.2 ; Hypothyroid E03.9 ; Right foot pain M79.671 ; Functional 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 and Other seasonal allergic rhinitis J30.2 [place] [id number] [place] [address] 89989- 0686 Oct, Dysthymic disorder F34.1 and Generalized anxiety disorder F41.1 [facility] [id number] [place] [address] 88970- 8115 Sep, [facility] [id number] [place] [address] 77695- 6980 Sep, [facility] [id number] [place] [address] 89463- 6257 Sep, [facility] [id number] [place] [address] 48888- 0436 Sep, [facility] [id number] [place] [address] 50597- 7062 Sep, [facility] [id number] [place] [address] 07121- 5289 Sep, 2015 Dysthymic disorder F34.1 and Generalized anxiety disorder F41.1 [place] [id number] [place] [address] 53236- 5732 16 Sep, 2015 Asthma with acute exacerbation in adult J45.901 ; Dysuria R30.0 ; Chronic kidney disease, stage 4 (severe) N18.4 and History of anemia Z86.2 [address] [address] [address] 80725- 3708 2015 Generalized anxiety disorder F41.1 and Dysthymic disorder F34.[address] 97552- 9522 August, Screening breast examination Z12.39 and Acute recurrent maxillary sinusitis J01.[address] 12970- 3241 August, Osteoarthritis of knees, bilateral M17.[address] 02616- 4284 August, Chronic kidney disease, stage 4 (severe) N18.4 ; Acute non- recurrent maxillary sinusitis J01.00 ; Urinary problem R39.89 ; Bowel habit changes R19.4 ; Functional 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 and History of colon polyps Z86.010 [place] [id number] [place] [address] 96849- 1436 Jul, Dysthymic disorder F34.1 and Generalized anxiety disorder F41.1 [facility] [id number] [place] [address] 19573- 5393 Jul, [address] 97547- 0953 Jul, Dysthymic disorder F34.1 ; Generalized anxiety disorder F41.1 and 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 [id number] [place] [address] 95063- 8341 Jul, [address] [id number] [address] 1269 Jun, [facility] ([facility] [id number] [place] [address] 33886- 4237 Jun, [facility] [id number] [place] [address] 40896- 4217 May, [facility] [id number] [place] [address] 11579- 0512 May, Dysthymic disorder F34.1 and Generalized anxiety disorder F41.1 [facility] [id number] [place] [address] 11672- 0018 Apr, Kidney disease N28.9 [facility] [id number] [place] [address] 13902- 1332 Apr, Dysthymic disorder F34.1 and Generalized anxiety disorder F41.1 [place] [id number] [place] [address] 85061- 2873 Apr, Chronic kidney disease, stage 4 (severe) N18.4 [facility] ([facility] [id number] [place] [address] 84082- 5646 Apr, Generalized anxiety disorder F41.1 ; Major depression, recurrent F33.9 and Sleep disturbance G47.9 [address] [id number] [place] [address] 65071- 6981 Mar, Generalized anxiety disorder F41.1 and Dysthymic disorder F34.1 [address] [id number] [place] [address] 55943- 8836 Mar, Generalized anxiety disorder F41.1 ; Dysthymic disorder F34.1 and Insomnia G47.00 [facility] ([facility] [id number] [place] [address] 07469- 8097 Mar, [facility] ([facility] [id number] [place] [address] 46540- 3685 Mar, [facility] [place] [id number] [place] [address] 56864- 9952 17 Mar, 2015 Osteoarthritis of knees, bilateral M17.[address] 43164- 8835 Mar, Hypertension I10 ; Hypothyroid E03.9 ; Dysthymic disorder F34.1 ; Chronic kidney disease, stage 4 (severe) N18.4 and Nausea & vomiting R11.[address] 13683- 7951 Mar, Generalized anxiety disorder F41.1 ; Dysthymic disorder F34.1 and Insomnia G47.[address] 57646- 2472 Mar, Dehydration E86.0 ; Chronic kidney disease, stage 4 (severe ) N18.4 and Nausea & vomiting R11.2 [facility] [id number] [place] [address] 07719 -4872 08 Mar, 2015 Gastroenteritis K52.9 [place] [id number] [place] [address] 60928- 2447 Mar, [id number] [place] [address] 96452- 3129 Mar, [id number] [place] [address] 45983- 1695 Feb, Dysthymic disorder F34.1 and Generalized anxiety disorder F41.1 [id number] [place] [address] 51069- 5382 Jan, UTI (urinary tract infection) N39.0 ; Asthma J45.909 ; Coronary artery disease involving [place] coronary artery of [place] heart, angina presence unspecified I25.10 ; Hypertension I10 ; Hypothyroid E03.9 ; Vitamin D deficiency E55.9 ; Insomnia G47.00 ; Palpitations R00.2 ; Depressed F32.9 ; Restless leg G25.81 and Anxiety F41.9 [place] [id number] [place] [address] 55935- 3392 Jan, Dysthymic disorder F34.1 and Generalized anxiety disorder F41.1 [place] [id number] [place] [address] 93322- 1616 Jan, [facility] [id number] [place] [address] 17026- 4404 Dec, [address] [address] 96399- 0270 28 Dec, 2014 Alkalosis 276.3 ; Chronic kidney disease, 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.4 ; Hyperpotassemia 276.7 ; Secondary hyperparathyroidism, renal 588.81 ; Proteinuria 791.0 ; Unspecified vitamin D deficiency 268.9 ; Anemia in chronic kidney disease 285.21 ; Other and unspecified hyperlipidemia 272.4 ; Hypertension, essential, benign 401.1 and Chronic kidney disease (CKD), stage III (moderate) 585.3 [place] [id number] [place] [address] 67547- 2229 16 Dec, 2014 [address] [id number] [place] [address] 92880- 1273 Dec, Depressive disorder, not elsewhere classified 311 and Generalized anxiety disorder 300.02 [place] [id number] [place] [address] 26318- 8195 10 Dec, 2014 [address] [id number] [place] [address] 25054- 9475 08 Dec, 2014 [place] [id number] [place] [address] 46577- 9121 Nov, Depressive disorder, not elsewhere classified 311 and Generalized anxiety disorder 300.02 [id number] [place] [address] 88487- 4435 Nov, Arthritis of both knees 716.96 [place] [id number] [place] [address] 30889- 4993 Nov, PAF (paroxysmal atrial fibrillation) 427.31 ; CAD (coronary artery disease) 414.00 ; Chest pain 786.50 and Chronic kidney disease (CKD) stage G4/A1, severely decreased glomerular filtration rate (GFR) between 15-29 mL/min/1.73 square meter and albuminuria creatinine ratio less than 30 mg/g 585.4 [address] [address] [place] [address] 18195- 5116 Oct, Coronary atherosclerosis of unspecified type of vessel, [place] or graft 414.00 ; Chronic kidney disease, 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.4 ; Hypertension 401.9 and Edema 782.3 [place] [id number] [place] [address] 87629- 3361 Oct, Depressive disorder, not elsewhere classified 311 and Generalized anxiety disorder 300.02 [address] [id number] [place] [address] 43684- 0760 Oct, Depressive disorder, not elsewhere classified 311 and Generalized anxiety disorder 300.02 [address] [id number] [place] [address] 21897- 0110 Oct, [place] [id number] [place] [address] 53602- 7921 Oct, [place] [id number] [place] [address] 10622- 9945 Sep, [place] [id number] [place] [address] 26011- 4551 Sep, Chronic kidney disease, 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.4 [address] [id number] [place] [address] 85172- 4347 Sep, [id number] [place] [address] 53869- 2165 Sep, Coronary atherosclerosis of unspecified type of vessel, [place] or graft 414.00 ; Hypertension 401.9 ; Edema 782.3 and Hypothyroidism 244.9 [id number] [place] [address] 04504- 8191 Sep, Coronary atherosclerosis of unspecified type of vessel, [place] or graft 414.00 ; Hypertension 401.9 ; Fibromyalgia 729.1 ; Edema 782.3 ; Hypothyroidism 244.9 and Anemia 285.9 [facility] [id number] [place] [address] 49825- 6061 Sep, Anxiety disorder, unspecified 300.00 and Depressive disorder , not elsewhere classified 311 [facility] [id number] [place] [address] 63907- 3893 Sep, [facility] [address] 38011- 8548 August, Generalized anxiety disorder 300.02 [facility] ([facility] [address] 99219- 8713 August, Closed fracture of lateral malleolus 824.2 [facility] [id number] [place] [address] 41770- 2717 Jul, [facility] [id number] [place] [address] 30418- 9158 Jul, [facility] [id number] [place] [address] 72477- 6144 Jun, [facility] [id number] [place] [address] 50419- 8718 Jun, [facility] [id number] [place] [address] 72886- 9432 Jun, [facility] [id number] [place] [address] 61330- 7016 Jun, [facility] [id number] [place] [address] 21680- 2197 Jun, [facility] [id number] [place] [address] 69859- 4070 Jun, [facility] [id number] [place] [address] [id number]- 9689 May, [facility] [id number] [place] [address] [place] [address]- 1460 19 May, 2014 [facility] [place] [facility] [address] [id number] [place] [address]- 6006 18 May, 2014 [facility] [place] [facility] [address] [id number] [place] [address]- 2206 18 May, 2014 [facility] [place] [facility] [address] [id number] [place] [address]- 3046 16 May, 2014 [facility] [place] [facility] [address] [id number] [place] [address]- 2546 16 May, 2014 [facility] [place] [facility] [address] [id number] [place] [address]- 6556 13 May, 2014 [facility] [place] [facility] [address] [id number] [place] [address]- 8716 13 May, 2014 [facility] [place] [facility] [address] [id number] [place] [address]- 1066 10 May, 2014 [facility] [place] [facility] [address] [id number] [place] [address]- 0062 10 May, 2014 [facility] [place] [facility] [address] [id number] [place] [address]- 4915 Apr, [facility] [place] [facility] [address] [id number] [place] [address]- 2014 Apr, [facility] [place] [facility] [address] [id number] [place] [address]- 0024 Mar, [facility] [place] [facility] [address] [id number] [place] [address]- 2543 Mar, [facility] [place] [facility] [address] [id number] [place] [address]- 2546 Mar, [facility] [place] [facility] [address] [id number] [place] [address]- 2546 Mar, [facility] [place] [facility] [address] [id number] [place] [address]- 3012 Mar, [facility] [place] [facility] [address] [id number] [place] [address]- 3191 Mar, [facility] [place] [facility] [address] [id number] [place] [address]- 7933 Mar, [facility] [place] [facility] [address] [id number] [place] [address]- 3739 Feb, [facility] [place] [facility] [address] [id number] [place] [address]- 0494 Feb, [facility] [place] [facility] [address] [id number] [place] [address]- 8838 Feb, [facility] [place] [facility] [address] [id number] [place] [address]- 8918 Jan, [facility] [place] [facility] [address] [id number] [place] [address]- 9491 Jan, [facility] [place] [facility] [address] [id number] [place] [address]- 7666 Jan, [facility] [place] [facility] [address] [id number] [place] [address]- 1961 Jan, [facility] [place] [facility] [address] [id number], [place] [address]- 2623 Jan, [facility] [place] [facility] [address] [id number], [place] [address]- 8695 Jan, [facility] [place] [facility] [address] [id number], [place] [address]- 6509 Jan, [facility] [place] [facility] [address] [id number] [place] [address]- 0210 Jan, [facility] [place] [facility] [address] [id number], [place] [address]- 6827 Jan, [facility] [place] [facility] [address] [id number] [place] [address]- 7501 Jan, [facility] [place] [facility] [address] [id number] [place] [address]- 0291 Nov, [facility] [place] [facility] [address] [id number] [place] [address]- 0690 Nov, [facility] [place] [facility] [address] [id number] [place] [address]- 6845 Nov, [facility] [place] [facility] [address] [id number] [place] [address]- 2428 Oct, [facility] [place] [facility] [address] [id number] [place] [address]- 6319 Oct, [facility] [place] [facility] [address] [id number] [place] [address]- 5375 Oct, [facility] [place] [facility] [address] [id number] [place] [address]- 6811 Oct, [facility] [place] [facility] [address] [id number] [place] [address]- 1900 Oct, [facility] [place] [facility] [address] [id number] [place] [address]- 2001 Oct, [facility] [place] [facility] [address] [id number] [place] [address]- 7938 Oct, [facility] [place] [facility] [address] [id number] [place] [address]- 9993 Oct, [facility] [place] [facility] [address] [id number] [place] [address]- 5554 Oct, [facility] [place] [facility] [address] [id number] [place] [address]- 1106 Sep, [facility] [place] [facility] [address] [id number] [place] [address]- 9330 Sep, [facility] [place] [facility] [address] [id number] [place] [address]- 6506 Sep, [facility] [place] [facility] [address] [id number] [place] [address]- 5904 Sep, [facility] [place] [facility] [address] [id number] [place] [address]- 6164 Sep, [facility] [place] [facility] [address] [id number] [place] [address]- 9653 Sep, [facility] [place] [facility] [address] [id number] [place] [address]- 7387 Sep, [facility] [place] [facility] [address] [id number] [place] [address]- 5767 Sep, [facility] [place] [facility] [address] [id number] [place] [address]- 6289 Sep, [facility] [place] [facility] [address] [id number] [place] [address]- 9097 August, [facility] [place] [facility] [address] [id number] [place] [address]- 8734 August, [facility] [place] [facility] [address] [id number] [place] [address]- 6645 August, [facility] [place] [facility] [address] [id number] [place] [address]- 2858 August, [facility] [place] [facility] [address] [id number] [place] [address]- 7890 August, [facility] [place] [facility] [address] [id number] [place] [address]- 4556 August, [facility] [place] [facility] [address] [id number] [place] [address]- 4022 Jul, [facility] [place] [facility] [address] [id number] [place] [address]- 5474 Jul, [facility] [place] [facility] [address] [id number] [place] [address]- 4409 Jul, [facility] [place] [facility] [address] [id number] [place] [address]- 7921 Jul, [facility] [place] [facility] [address] [id number] [place] [address]- 4089 Jul, [facility] [place] [facility] [address] [id number] [place] [address]- 9764 Jul, [facility] [place] [facility] [address] [id number] [place] [address]- 6556 Jun, [facility] [place] [facility] [address] [id number] [place] [address]- 2965 Jun, [facility] [place] [facility] [address] [id number] [place] [address]- 3617 May, [facility] [place] [facility] [address] [id number] [place] [address]- 5010 May, [facility] [place] [facility] [address] [id number] [place] [address]- 1186 May, [facility] [place] [facility] [address] [id number] [place] [address]- 2573 May, [facility] [place] [facility] [address] [id number] [place] [address]- 2223 Apr, [facility] [place] [facility] [address] [id number] [place] [address]- 6436 Apr, [facility] [place] [facility] [address] [facility] [id number] [place] [address]- 1874 Mar, [facility] [place] [facility] [address] [id number] [place] [address]- 9200 18 Mar, 2013 [facility] [place] [facility] [address] [id number] [place] [address]- 4223 17 Mar, 2013 [facility] [place] [facility] [address] [id number] [place] [address]- 7319 Mar, [facility] [place] [facility] [address] [id number] [place] [address]- 2521 05 Mar, 2013 [facility] [place] [facility] [address] [facility] [id number] [place] [address]- 9972 05 Mar, 2013 [facility] [place] [facility] [address] [id number] [place] [address]- 8644 Feb, [facility] [place] [facility] [address] [id number] [place] [address]- 3052 Feb, [facility] [place] [facility] [address] [id number] [place] [address]- 5186 Feb, [facility] [place] [facility] [address] [id number] [place] [address]- 0724 Feb, [facility] [place] [facility] [address] [id number] [place] [address]- 4664 Feb, [facility] [place] [facility] [address] [id number] [place] [address]- 7172 Feb, [facility] [place] [facility] [address] [id number] [place] [address]- 6886 Jan, [facility] [place] [facility] [address] [id number] [place] [address]- 6751 Jan, [facility] [place] [facility] [address] [id number] [place] [address]- 1374 Jan, [facility] [place] [facility] [address] [id number] [place] [address]- 5993 Jan, [facility] [place] [facility] [address] [id number] [place] [address]- 5825 Jan, [facility] [place] [facility] [address] [id number] [place] [address]- 9976 Jan, [facility] [place] [facility] [address] [id number] [place] [address]- 5716 Dec, [facility] [place] [facility] [address] [id number] [place] [address]- 6980 Dec, [facility] [place] [facility] [address] [id number] [place] [address]- 2546 Nov, [facility] [place] [facility] [address] [id number] [place] [address] Nov, [facility] [address] [id number] [place] [address] Oct, [facility] [place] [facility] [address] [id number] [place] [address] Oct, [facility] [place] [facility] [address] [id number] [place] [address] Oct, [facility] [place] [facility] [address] [id number] [place] [address] Oct, [facility] [address] [id number] [place] [address] Oct, [facility] [place] [facility] [address] [id number] [place] [address] Oct, [facility] [place] [facility] [address] [id number] [place] [address] Sep, [facility] [place] [facility] [address] [id number] [place] [address] Sep, [facility] [place] [facility] [address] [id number] [place] [address] Sep, [facility] [place] [facility] [address] [id number] [place] [address] Sep, [facility] [place] [facility] [address] [id number] [place] [address] August, [facility] [place] [facility] [address] [id number] [place] [address] August, [facility] [place] [facility] [address] [id number] [place] [address] August, [facility] [place] [facility] [address] [id number] [place] [address] August, [facility] [place] [facility] [address] [id number] [place] [address] August, [facility] [place] [facility] [address] [id number] [place] [address] Jul, [facility] [address] [id number] [place] [address] Jul, [facility] [address] [id number] [place] [address] Jul, [facility] [address] [id number] [place] [address] Jul, [facility] [place] [facility] [address] [id number] [place] [address] Jul, [facility] [address] [id number] [place] [address] Jul, [facility] [address] [id number] [place] [address] Jul, [facility] [address] [id number] [place] [address] Jul, [facility] [address] [id number] [place] [address]- [address] Jul, [facility] [address] [id number] [place] [address] Jul, [facility] [address] [id number] [id number] Jun, [facility] [address] [id number] [place] [address] Jun, [facility] [place] [facility] [address] [id number], [place] [address] Jun, [facility] [place] [facility] [address] [id number] [place] [address] Jun, [facility] [place] [facility] [address] [id number] [place] [address] Jun, [facility] [place] [facility] [address] [id number] [place] [address] May, [facility] [place] [facility] [address] [id number] [place] [address] 18 May, 2012 [facility] [address] [id number] [place] [address] May, [facility] [place] [facility] [address] [id number] [place] [address] Apr, [facility] [place] [facility] [address] [id number] [place] [address] Apr, [facility] [place] [facility] [address] [id number] [place] [address] Apr, [facility] [place] [facility] [address] [id number] [place] [address] Apr, [facility] [place] [facility] [address] [id number] [place] [address] Apr, [facility] [place] [facility] [address] [id number] [place] [address] Apr, [facility] [address] [id number] [place] [address] Mar, [facility] [place] [facility] [address] [id number] [place] [address] Mar, [facility] [address] [id number] [place] [address] Mar, [facility] [place] [facility] [address] [id number] [place] [address] Mar, [facility] [place] [facility] [address] [id number] [place] [address] Feb, [facility] [place] [facility] [address] [id number] [place] [address] Feb, [facility] [place] [facility] [address] [id number] [place] [address] Feb, [facility] [place] [facility] [address] [id number] [place] [address] Feb, [facility] [place] [facility] [address] [id number] [place] [address]- [address] Feb, [facility] [place] [facility] [address] [id number] [place] [address] Feb, [facility] [place] [facility] [address] [facility] [id number] [place] [address] Feb, [facility] [place] [facility] [address] [id number] [place] [address] 49[address] Feb, [facility] [place] [facility] [address] [id number] [place] [address] Feb, [facility] [place] [facility] [address] [id number] [place] [address] 64[address] Feb, [facility] [place] [facility] [address] [facility] [id number] [place] [address] Feb, [facility] [place] [facility] [address] [id number], [place] [address] Feb, [facility] [place] [facility] [address] [id number], [place] [address] Feb, [facility] [place] [facility] [address] [facility] [id number], [place] [address] Feb, [facility] [place] [facility] [address] [facility] [id number], [place] [address] Feb, [facility] [place] [facility] [address] [id number], [place] [address] Feb, [facility] [place] [facility] [address] [id number], [place] [address] Jan, [facility] [place] [facility] [address] [id number], [place] [address] Jan, [facility] [place] [facility] [address] [facility] [id number], [place] [address] Jan, [facility] [place] [facility] [address] [id number] [place] [address] 9197 31 Jan, 2012 [facility] [place] [facility] [address] [id number] [place] [address] 5466 30 Jan, 2012 [facility] [place] [facility] [address] [id number] [place] [address] 2566 25 Jan, 2012 [facility] [place] [facility] [address] [id number] [place] [address] 25 Jan, 2012 [facility] [place] [facility] [address] [id number] [place] [address] 2546 16 Jan, 2012 [facility] [place] [facility] [address] [id number] [place] [address]- 8706 16 Jan, 2012 [facility] [place] [facility] [address] [id number] [place] [address]- 7046 15 Jan, 2012 [facility] [place] [facility] [address] [id number] [place] [address]- 6488 15 Jan, 2012 [facility] [place] [facility] [address] [id number] [place] [address] 0962 Jan, [facility] [place] [facility] [address] [id number] [place] [address] 2546 26 Sep, 2011 [facility] [place] [facility] [address] [facility] [id number] [place] [address] 2547 26 Sep, 2011 [facility] [place] [facility] [address] [id number] [place] [address] 2546 24 Sep, 2011 [facility] [place] [facility] [address] [id number] [place] [address] 2546 23 Sep, 2011 [facility] [place] [facility] [address] [id number] [place] [address] 2546 22 Sep, 2011 [facility] [place] [facility] [address] [facility] [id number] [place] [address] 2546 21 Sep, 2011 [facility] [place] [facility] [address] [id number] [place] [address] 2543 20 Sep, 2011 [facility] [place] [facility] [address] [id number] [place] [address]- 7763 20 Dec, 2011 [facility] [place] [facility] [address] [id number] [place] [address]- [address]257 Dec, 2011 [facility] [place] [facility] [address] [id number] [place] [address] 6656 06 Dec, 2011 [facility] [place] [facility] [address] [id number] [place] [address]- 4687 06 Dec, 2011 [facility] [place] [facility] [address] [id number] [place] [address] 2668 05 Dec, 2011 [facility] [place] [facility] [address] [id number] [place] [address] 8807 Nov, [facility] [place] [facility] [address] [id number] [place] [address] 3434 Nov, [facility] [place] [facility] [address] [id number] [place] [address] 4665 Nov, [facility] [place] [facility] [address] [id number] [place] [address] 7471 Nov, [facility] [place] [facility] [address] [id number] [place] [address] 6389 Nov, [facility] [place] [facility] [address] [id number] [place] [address] 6425 Nov, [facility] [place] [facility] [address] [id number] [place] [address] 7505 Nov, [facility] [place] [facility] [address] [id number] [place] [address]- 1519 Nov, [facility] [place] [facility] [address] [id number] [place] [address] 7239 Oct, [facility] [place] [facility] [address] [id number] [place] [address]- 9985 Oct, [facility] [place] [facility] [address] [id number] [place] [address]- 8234 Oct, [facility] [place] [facility] [address] [id number] [place] [address] 3241 Oct, [facility] [place] [facility] [address] [id number] [place] [address]- 9126 Oct, [facility] [place] [facility] [address] [id number] [place] [address]- 3606 Oct, [facility] [place] [facility] [address] [id number] [place] [address]- 4870 Oct, [facility] [place] [facility] [address] [id number] [place] [address]- 7612 Sep, [facility] [place] [facility] [address] [id number] [place] [address]- 9429 Sep, [facility] [place] [facility] [address] [id number] [place] [address] 2301 August, [facility] [place] [facility] [address] [id number] [place] [address]- 1849 August, [facility] [place] [facility] [address] [id number] [place] [address]- 9674 August, [facility] [place] [facility] [address] [id number] [place] [address]- 7152 August, [facility] [place] [facility] [address] [id number] [place] [address]- 9903 Jul, [facility] [place] [facility] [address] [id number] [place] [address]- 4207 Jul, [facility] [place] [facility] [address] [id number] [place] [address]- 7645 Jul, [facility] [place] [facility] [address] [id number] [place] [address]- 7408 Jul, [facility] [place] [facility] [address] [id number] [place] [address]- 0499 Jul, [facility] [place] [facility] [address] [id number] [place] [address]- 5151 04 Jul, 2011 [facility] [address] [id number] [place] [address] 1178 Jul, [facility] [place] [facility] [address] [id number] [place] [address]- 5976 Jul, [facility] [address] [id number] [place] [address]- 0974 Jul, [facility] [address] [id number] [place] [address]- 6441 23 Jun, 2011 [facility] [address] [id number] [place] [address]- 7911 19 Jun, 2011 [facility] [address] [id number] [place] [address]- 1031 15 Jun, 2011 [facility] [address] [id number] [place] [address]- 6452 14 Jun, 2011 [facility] [address] [id number] [place] [address]- 9657 12 Jun, 2011 [facility] [address] [id number] [place] [address]- 4716 Jun, [facility] [address] [id number] [place] [address]- 6184 Jun, [facility] [place] [facility] [address] [id number] [place] [address]- 4270 25 May, 2011 [facility] [address] [id number] [place] [address]- 5053 24 May, 2011 [facility] [place] [facility] [address] [id number] [place] [address]- 9226 16 May, [address] [facility] [place] [facility] [address] [id number] [place] [address]- 6006 16 May, 2011 [facility] [place] [facility] [address] [id number] [place] [address] 5024 May, [facility] [address] [id number] [place] [address]- 9942 Apr, [facility] [place] [facility] [address] [id number] [place] [address]- 4386 Apr, [facility] [place] [facility] [address] [facility] [id number] [place] [address]- 2546 Apr, [facility] [place] [facility] [address] [id number] [place] [address]- 2546 Apr, [facility] [place] [facility] [address] [id number] [place] [address]- 2546 Apr, [facility] [place] [facility] [address] [id number] [place] [address]- 9866 Mar, [facility] [place] [facility] [address] [id number] [place] [address]- 3126 Mar, [facility] [place] [facility] [address] [id number] [place] [address]- 4864 Mar, [facility] [place] [facility] [address] [id number] [place] [address]- 3837 Mar, [facility] [place] [facility] [address] [facility] [id number] [place] [address]- 7130 Mar, [facility] [place] [facility] [address] [facility] [id number], [place] [address]- 5066 Mar, [facility] [place] [facility] [address] [id number], [place] [address]- 2546 Mar, [facility] [place] [facility] [address] [id number] [place] [address]- 2540 Feb, [facility] [place] [facility] [address] [id number] [place] [address]- 2206 Feb, [facility] [place] [facility] [address] [facility] [id number] [place] [address]- 2546 Feb, [facility] [place] [facility] [address] [id number] [place] [address]- 0330 Feb, [facility] [place] [facility] [address] [id number] [place] [address]- 5866 Jan, [facility] [place] [facility] [address] [id number] [place] [address] 2546 Jan, [facility] [place] [facility] [address] [id number] [place] [address]- 8156 Jan, [facility] [place] [facility] [address] [id number] [place] [address] 2546 Jan, [facility] [place] [facility] [address] [id number] [place] [address]- 7115 Nov, [facility] [place] [facility] [address] [id number] [place] [address]- 2496 Mar, [facility] [place] [facility] [address] [id number] [place] [address]- 9547 Mar, [facility] [place] [facility] [address] [id number] [place] [address]- 0620 Mar, [facility] [place] [facility] [address] [id number] [place] [address] 2545 Mar, [facility] [place] [facility] [address] [facility] [id number] [place] [address] 2545 Mar, [facility] [place] [facility] [address] [id number] [place] [address] 2546 Mar, [facility] [place] [facility] [address] [id number] [place] [address] 2545 Feb, [facility] [place] [facility] [address] [id number] [place] [address] 2546 Feb, [facility] [place] [facility] [address] [id number] [place] [address] 2546 28 Jan, 2009 [facility] [place] [facility] [address] [id number] [place] [address] 2540 Jan, [facility] [place] [facility] [address] [facility] [id number] [place] [address]- 4142 Jan, IMMUNIZATIONS No Known Immunizations SOCIAL HISTORY Never Assessed REASON FOR VISIT Medication question PLAN OF CARE VITAL SIGNS MEDICATIONS Medication Instructions Dosage Frequency Start Date End Date Duration Status Requip 5 MG Orally Once a day 1 tablet 24h Active RESULTS No Results PROCEDURES No Known [...] Surgical History Bladder surgery [facility] [place] 03/2016 Surgical History Neurotransmitter placed 10/2017 Hospitalization History Surgeries Only Hospitalization History 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 psych for SI 1988 Hospitalization History [facility]-Altered mental status 05/2017
[2018-05-29 07:57] LABS: MEAN PLATELET VOLUME 9.8 FL (7.4-10.4); RED CELL DISTRIBUTION WIDTH 13.2 % (10.0-14.5)
--- OUTSIDE RECORDS SUMMARY | 2018-05-29 07:57 | XMS REPORT ---
Author Author ZHANE BOSCH [facility] Address [address] [place] [address] Care Team Providers Care Correctional Officer Chief Name Role Phone ZHANE BOSCH Unavailable PROBLEMS Type Condition ICD9-CM Code [id number] Code Onset Dates Condition Status SNOMED Code Problem Low back pain M54.5 Active 816899247 Problem Abnormal chest CT R93.8 Active 667804542 Problem Dysthymic disorder F34.1 Active 69143260 Problem Generalized anxiety disorder F41.1 Active 03087096 Problem Coronary artery disease involving tu[place]ne coronary artery of tu[place] heart, angina presence unspecified I25.10 Active 2766361714164 Problem Restless leg G25.81 Active 99870080 Problem Hypothyroid E03.9 Active 51475225 Problem Insomnia G47.00 Active 723702032 Problem Asthma J45.909 Active 288068227 Problem Chronic kidney disease, unspecified N18.9 Active 655221179 Problem Palpitations R00.2 Active 57496680 Problem Anemia in chronic kidney disease D63.1 Active 118554092330837 Problem Depressed F32.9 Active 45807047 Problem Bipolar disorder, current episode manic without psychotic features F31.10 Active 470035978 Problem Primary osteoarthritis of left knee M17.12 Active 249120357 Problem Degenerative tear of medial meniscus of left knee M23.204 Active 194657205 Problem Chronic pain syndrome G89.4 Active 238317105 Problem Restless leg syndrome G25.81 Active 54335562 Problem History of colon polyps Z86.010 Active 340764449 Problem Functional 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 Active 19266688 Problem Chronic kidney disease, stage 4 (severe) N18.4 Active 029438482 Problem Stage 3 chronic kidney disease N18.3 Active 204565070 Problem Mood disorder F39 Active 67979331 Problem Seasonal allergic rhinitis due to pollen J30.1 Active 54714939 Problem Body mass index (BMI) of 40.0-44.9 in adult Z68.41 Active 354040832 Problem Other seasonal allergic rhinitis J30.2 Active 446995294 Problem Long-term use of high-risk medication Z79.899 Active 334334461 Problem Hypokalemia E87.6 Active 26857561 Problem Asthma with acute exacerbation in adult J45.901 Active 391819650 Problem History of anemia Z86.2 Active 226123008 Problem Vitamin D deficiency E55.9 Active 09893639 Problem Essential (primary) hypertension I10 Active 46083970 Problem Fibromyalgia M79.7 Active 200299088 Problem Mixed stress and urge urinary incontinence N39.46 Active 277760580 ALLERGIES No Information ENCOUNTERS Encounter Location Date Diagnosis [place] [address] [address] Dec, [place] [address] [address]- 4144 Nov, [place] [address] [address]26- 9488 Nov, [place] [address] [address]- 8530 Nov, Fibromyalgia M79.7 ; Vision changes H53.9 ; Chest wall pain R07.89 and Chronic pain syndrome G89.4 [place] [address] 57[address]- 1395 Nov, [place] [address] 71074- 7409 Nov, Rash of hands R21 [place] [address] 19731- 5012 Nov, Generalized anxiety disorder F41.1 and Major depressive disorder, recurrent episode with anxious distress F33.9 [place] [address] 41848- 7210 Nov, Fibromyalgia M79.7 [place] [address] 91574- 5775 Nov, Complicated UTI (urinary tract infection) N39.0 [facility] [address] [address] Oct, [facility] [address] [place] [id number] [place] [address] 59921- 6413 Oct, Generalized anxiety disorder F41.1 and Major depressive disorder, recurrent episode with anxious distress F33.9 [facility] [address] [place] [id number] [place] [address] 36980- 2970 Oct, [facility] [address] [place] [id number] [place] [address] 71480- 0762 Oct, Fibromyalgia M79.7 [place] [address] [place] [id number] [place] [address] 28220- 5245 Sep, Restless leg syndrome G25.81 and Restless leg G25.81 [place] [address] [place] [id number] [place] [address] 67414- 3750 Sep, [place] [address] [place] [id number] [place] [address] 16591- 8970 Sep, Seasonal allergic rhinitis due to pollen J30.1 ; Screening for breast cancer Z12.31 ; Chest pain at rest R07.9 ; Restless leg syndrome G25.81 ; Essential (primary) hypertension I10 and Depressed F32.9 [place] [address] [address] 4[address] August, Fibromyalgia M79.7 [facility] [id number] [place] [address] 58868- 8537 August, [facility] [address] [place] [id number] [place] [address] 48172- 1730 August, [place] [address] [place] [id number] [place] [address] 39528- 8853 August, [address] R93.8 [place] [address] [place] [id number] [place] [address] 95422- 7143 August, Generalized anxiety disorder F41.1 and Major depressive disorder, recurrent episode with anxious distress F33.9 [place] [address] [place] [id number] [place] [address] 71093- 4250 August, [address] R93.8 [place] [address] [place] [id number] [place] [address] 02110- 1093 Jul, [place] [address] 27280- 3537 Jul, Chronic kidney disease, stage 4 (severe) N18.4 [place] [address] [place] [id number] [place] [address] 29139- 5095 Jul, [place] [address] 93179- 0159 Jul, Restless leg G25.81 ; Mixed stress and urge urinary incontinence N39.46 and Fibromyalgia M79.7 [place] [address] [place] [id number] [place] [address] 40166- 8950 Jul, Chronic kidney disease, stage 4 (severe) N18.4 [place] [address] [place] [id number] [place] [address] 20825- 7224 Jun, Orthostatic hypotension I95.1 ; Chronic kidney disease, stage 4 (severe) N18.4 ; Chest wall discomfort R07.89 and Body mass index (BMI) of 40.0-44.9 in adult Z68.41 [place] [address] [place] [id number] [place] [address] 26347- 6853 Jun, [place] [address] [place] [id number] [place] [address] 34558- 9198 Jun, Orthostatic hypotension I95.1 [place] [address] [place] [id number] [place] [address] 72423- 8107 Jun, [facility] [address] [place] [id number] [place] [address] 15194 -7147 Jun, Orthostatic hypotension I95.1 ; Dysuria R30.0 and Acute cystitis without hematuria N30.00 [facility] [id number] [place] [address] 47887- 4005 Jun, [facility] [address] [place] [id number] [place] [address] 63628- 5096 Jun, Chronic kidney disease, stage 4 (severe) N18.4 [facility] [address] [place] [id number] [place] [address] 83515- 7506 Jun, Fibromyalgia M79.7 [facility] [address] [place] [id number] [place] [address] 11863- 6225 Jun, [facility] [address] [place] [id number] [place] [address] 34844- 7424 Jun, [facility] [address] [place] [id number] [place] [address] 90910- [address] May, [address] R93.8 and Stage 3 chronic kidney disease N18.3 [facility] [address] [place] [id number] [place] [address] 20040- 9535 May, Chronic kidney disease, stage 4 (severe) N18.4 [facility] [address] [place] [id number] [place] [address] 19027- 4170 May, Chronic kidney disease, stage 4 (severe) N18.4 [facility] [address] [place] [id number] [place] [address] 24155- 1498 May, [address] R93.8 [facility] [id number] [place] [address] 29819- 1523 May, [facility] [address] [place] [id number] [place] [address] 03174- 2978 May, [facility] [address] [place] [id number] [place] [address] 06660- 8387 May, Generalized anxiety disorder F41.1 and Major depressive disorder, recurrent episode with anxious distress F33.9 [facility] [address] [place] [id number] [place] [address] 96862- 2544 May, Mood disorder F39 [facility] [address] [place] [id number] [place] [address] 65793- 0879 Apr, [facility] [address] [place] [id number] [place] [address] 16029- 6366 Apr, Infected skin lesion L08.9 and Muscle strain of right shoulder region, initial encounter S46.911A [facility] [address] [place] [id number] [place] [address] 15349- 4855 Apr, Generalized anxiety disorder F41.1 and Major depressive disorder, recurrent episode with anxious distress F33.9 [place] [address] [place] [id number] [place] [address] 23289- 6729 Apr, [place] [address] [place] [id number] [place] [address] 81318- 9908 Apr, Recent urinary tract infection Z87.440 and Hypothyroid E03.9 [place] [address] [place] [id number] [place] [address] 96856- 4124 Apr, Generalized anxiety disorder F41.1 and Major depressive disorder, recurrent episode with anxious distress F33.9 [place] [address] [place] [id number] [place] [address] 37624- 5726 Apr, Recent urinary tract infection Z87.440 [place] [address] [place] [id number] [place] [address] 55916- 1638 Mar, [facility] [id number] [place] [address] 81396 -5495 Mar, Dysuria R30.0 ; Acute cystitis without hematuria N30.00 and BMI 40.0-44.9, adult Z68.41 [facility] [id number] [place] [address] 21356- 2744 Mar, [facility] [id number] [place] [address] 32187- 5290 Mar, [place] [id number] [place] [address] 53828- 8453 Mar, Generalized anxiety disorder F41.1 and Major depressive disorder, recurrent episode with anxious distress F33.9 [place] [address] [place] [id number] [place] [address] 50835- 1461 Feb, Conjunctivitis, bacterial H10.9 [place] [address] [place] [id number] [place] [address] 24489- 9161 Feb, [facility] [address] [place] [id number] [place] [address] 04601 -5236 Feb, Conjunctivitis, bacterial H10.9 [place] [address] [place] [id number] [place] [address] 59766- 9913 Feb, [facility] [place] [address] [place] [id number] [place] [address] 12109 -0508 Feb, Dysuria R30.0 ; Acute cystitis N30.00 and BMI 40.0-44.9, adult Z68.41 [place] [address] [place] [id number] [place] [address] 78992- 0183 Feb, [place] [address] [place] [id number] [place] [address] 60397- 8897 Feb, Generalized anxiety disorder F41.1 and Major depressive disorder, recurrent episode with anxious distress F33.9 [place] [address] [place] [id number] [place] [address] 55850- 3100 Feb, Mood disorder F39 and BMI 40.0-44.9, adult Z68.41 [place] [address] [place] [id number] [place] [address] 75144- 0945 Jan, [place] [address] [place] [id number] [place] [address] 17971- 3207 Jan, [place] [address] [place] [id number] [place] [address] 98473- 6818 Jan, Hypothyroid E03.9 [place] [address] [place] [id number] [place] [address] 53137- 0631 Jan, [place] [address] 70906- 3446 Jan, Chronic kidney disease, unspecified N18.9 ; Hypokalemia E87.6 ; Essential (primary) hypertension I10 ; Fibromyalgia M79.7 ; Coronary artery disease involving [place] coronary artery of [place] heart, angina presence unspecified I25.10 ; Hypothyroid E03.9 and Encounter for immunization Z23 [place] [address] [place] [id number] [place] [address] 48370- 4349 Jan, Hypothyroid E03.9 [place] [address] 55341- 0283 Jan, [place] [address] 79984- 0622 Dec, Vitamin D deficiency E55.9 [place] [address] 19862- 9497 28 Dec, 2016 Primary osteoarthritis of left knee M17.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 [place] [address] [place] [id number] [place] [address] 47767- 0299 19 Dec, 2016 Fibromyalgia M79.7 [place] [address] [place] [id number] [place] [address] 52055- 5115 18 Dec, 2016 Mood disorder F39 [place] [address] [place] [id number] [place] [address] 33763- 1665 13 Dec, 2016 [place] [address] [place] [id number] [place] [address] 48742- 1442 13 Dec, 2016 Generalized anxiety disorder F41.1 and Major depressive disorder, recurrent episode with anxious distress F33.9 [place] [address] [place] [id number] [place] [address] 70813- 1870 11 Dec, 2016 [place] [address] 75622- 3207 08 Dec, 2016 Streptococcal meningitis G00.2 [facility] [address] [facility] [id number] [address]- 7189 07 Dec, 2016 Streptococcal meningitis G00.2 [facility] [address] [facility] [id number] [address]- 7362 Dec, [facility] [address] [facility] [id number] [place] [address] 29476- 3104 Dec, Streptococcal meningitis G00.2 [facility] [address] [facility] [id number] [address]- 4352 Dec, [facility] [id number] [place] [address] 86604- 9967 Dec, Major depressive disorder, recurrent episode with anxious distress F33.9 [facility] [id number] [place] [address] 03724- 3921 Nov, Fever, unspecified fever cause R50.9 [facility] [address] [address]- 5958 Nov, [facility] [address] [place] [id number] [place] [address] 58734- 0994 Nov, Hypothyroid E03.9 [facility] [address] [address]- 9297 Nov, Generalized anxiety disorder F41.1 and Major depressive disorder, recurrent episode with anxious distress F33.9 [facility] [address] [address]- 3969 Nov, [facility] [address] [id number] [id number] Oct, Dental examination Z01.20 [facility] [address] [address]- 4643 Oct, Generalized anxiety disorder F41.1 and Major depressive disorder, recurrent episode with anxious distress F33.9 [facility] [address] [place] [id number] [address]- 9927 Oct, Chronic kidney disease, stage 4 (severe) N18.4 [place] [address] [place] [id number] [place] [address] 45967- 4183 Oct, [place] [address] [place] [id number] [place] [address] 61778- 1988 Oct, Fibromyalgia M79.7 [place] [address] [place] [id number] [place] [address] 96105- 7145 Oct, [place] [address] [place] [id number] [place] [address] 14708- 5827 Oct, Generalized anxiety disorder F41.1 ; Major depressive disorder, recurrent episode with anxious distress F33.9 and Bipolar disorder, current episode manic without psychotic features F31.10 [place] [address] [place] [id number] [place] [address] 17701- 3771 Sep, [place] [address] [place] [id number] [place] [address] 02492- 2152 Sep, [place] [address] [place] [id number] [place] [address] 50845- 5612 Sep, Vitamin D deficiency E55.9 [place] [address] [address]- 6564 Sep, Vitamin D deficiency E55.9 [place] [address] [address]- 0701 Sep, [place] [address] [address]- 1712 Sep, Chronic kidney disease, stage 4 (severe) N18.4 ; Hypothyroid E03.9 ; Restless leg G25.81 ; Fibromyalgia M79.7 ; Essential ( primary) hypertension I10 ; Vitamin D deficiency E55.9 ; Dyspepsia R10.13 ; Anemia in chronic kidney disease D63.1 ; Chronic kidney disease, unspecified N18.9 ; Coronary artery disease involving [place] coronary artery of tu[place] heart , angina presence unspecified I25.10 ; Screening breast examination Z12.39 and Low back pain M54.5 [place] [address] [place] [id number] [place] [address] 61466- 2469 August, Generalized anxiety disorder F41.1 and Major depressive disorder, recurrent episode with anxious distress F33.9 [place] [address] [place] [id number] [place] [address] 41769- 1867 August, Generalized anxiety disorder F41.1 and Major depressive disorder, recurrent episode with anxious distress F33.9 [place] [address] [place] [id number] [place] [address] 96926- 8328 August, Fibromyalgia M79.7 [place] [address] 50121- 1419 Jul, Generalized anxiety disorder F41.1 and Major depressive disorder, recurrent episode with anxious distress F33.9 [place] [address] [place] [id number] [place] [address] 80327- 7094 Jul, Fibromyalgia M79.7 [place] [address] [place] [id number] [place] [address] 54497- 5259 Jul, Generalized anxiety disorder F41.1 [place] [address] [place] [id number] [place] [address] 75536- 4226 May, [place] [address] [place] [id number] [place] [address] 89998- 4072 May, Hypothyroid E03.9 [place] [address] [place] [id number] [place] [address] 82060- 7494 May, Chronic kidney disease, stage 4 (severe) N18.4 ; Hypothyroid E03.9 ; Restless leg G25.81 ; Fibromyalgia M79.7 ; Essential ( primary) hypertension I10 ; Vitamin D deficiency E55.9 ; Dyspepsia R10.13 ; Acute non-recurrent maxillary sinusitis J01.00 ; Anemia in chronic kidney disease D63.1 ; Chronic kidney disease, unspecified N18.9 and Coronary artery disease involving [place] coronary artery of [place] heart, angina presence unspecified I25.10 [facility] [address] [address]- 6736 May, Vitamin D deficiency, unspecified E55.9 [facility] [id number] [place] [address] 22796 2546 May, Generalized anxiety disorder F41.1 and Major depressive disorder, recurrent episode with anxious distress F33.9 [facility] [address] [place] [id number] [place] [address] 56809- 9916 Apr, Pain in right knee M25.561 and Pain in left knee M25.562 [facility] [address] [place] [id number] [place] [address] 38241- 1986 Apr, [facility] [address] [place] [id number] [place] [address] 33550- 2745 Apr, [facility] [address] [place] [id number] [place] [address] 41942- 0501 Apr, [facility] [id number] [place] [address] 88688- 9144 Mar, Generalized anxiety disorder F41.1 and Major depressive disorder, recurrent episode with anxious distress F33.9 [facility] [id number] [place] [address] 07860- 1418 Mar, Generalized anxiety disorder F41.1 and Major depressive disorder, recurrent episode with anxious distress F33.9 [facility] [id number] [place] [address] 62143- 1180 Mar, [facility] [id number] [place] [address] 76704- 9256 Mar, [facility] [address] [place] [id number] [place] [address] 81985- 2566 Mar, [facility] [id number] [place] [address] 61555- 1936 Mar, Asthma J45.909 and Fibromyalgia M79.7 [facility] [address] [place] [id number] [place] [address] 33518- 6709 Mar, Chronic kidney disease, stage 4 (severe) N18.4 ; Vitamin D deficiency E55.9 and Essential (primary) hypertension I10 [facility] [address] [place] [id number] [place] [address] 49162- 7361 Feb, [facility] [address] 38567- 7378 Feb, Dysuria R30.0 ; Mixed stress and urge urinary incontinence N39.46 ; Fibromyalgia M79.7 and Chronic kidney disease, stage IV (severe) N18.4 [place] [address] 64415 2548 Feb, Chronic kidney disease, stage 4 (severe) N18.4 [place] [address] [place] [id number] [place] [address] 66813- 0606 Feb, Chronic kidney disease, stage 4 (severe) N18.4 [facility] [address] [place] [id number] [place] [address] 33683- 0799 Feb, [facility] [address] [place] [id number] [place] [address] 03816 2543 Feb, Vitamin D deficiency, unspecified E55.9 [facility] [address] [place] [id number] [place] [address] 51582 2540 Jan, [facility] [address] [place] [id number] [place] [address] 52805 2545 Jan, [facility] [address] [place] [id number] [place] [address] 38521- 1420 Dec, [facility] [address] [place] [id number] [place] [address] 74820- 2549 Dec, Chronic kidney disease, stage 4 (severe) N18.4 [facility] [address] [place] [id number] [place] [address] 31620- 5842 Dec, Dysthymic disorder F34.1 and Generalized anxiety disorder F41.1 [facility] [address] [place] [id number] [place] [address] 28976- 5358 Dec, [place] [address] 24057- 7756 Dec, [place] [address] 54206- 1184 Dec, Dysthymic disorder F34.1 and Generalized anxiety disorder F41.1 [place] [address] 87476- 2971 Dec, Dysuria R30.0 ; Chronic kidney disease, stage 4 (severe) N18.4 ; Hypertension I10 ; Dyspepsia R10.13 ; Yeast dermatitis B37.2 ; Palpitations R00.2 ; Hypothyroid E03.9 ; Functional 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 and Other seasonal allergic rhinitis J30.2 [facility] [address] 09473 -0330 Dec, [facility] [address] 77752 -7116 Nov, Dysuria R30.0 and Stress incontinence N39.3 [place] [address] 41098- 3990 Nov, [place] [address] 23928- 8662 Nov, [place] [address] 09428- 2467 Nov, Osteoarthritis of knees, bilateral M17.0 [place] [address] 78628- 1671 Nov, Dysthymic disorder F34.1 and Generalized anxiety disorder F41.1 [place] [address] [address]- [address] Nov, [place] [address] [place] [id number] [place] [address] [id number]- [phone] 15 Nov, 2015 [place] [address] [place] [id number] [place] [address] 33364- 9262 Nov, Urgency of urination R39.15 [place] [address] [place] [id number] [place] [address] 70065- 5364 Nov, [place] [address] [address]- [address] Nov, Chronic kidney disease, stage 4 (severe) N18.4 [place] [address] [place] [id number] [place] [address] 34057- 5200 Oct, Hypertension I10 ; Coronary artery disease involving [place] coronary artery of [place] heart, angina presence unspecified I25.10 ; Palpitations R00.2 ; Hypothyroid E03.9 ; Right foot pain M79.671 ; Functional 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 and Other seasonal allergic rhinitis J30.2 [place] [address] [place] [id number] [place] [address] 08986- 7120 Oct, Dysthymic disorder F34.1 and Generalized anxiety disorder F41.1 [place] [address] [place] [id number] [place] [address] 59396- 5222 Sep, [place] [address] [place] [id number] [place] [address] 74141- 0556 Sep, [place] [address] [place] [id number] [place] [address] 99162- 1542 Sep, [facility] [address] [place] [id number] [place] [address] 90364- 1566 Sep, [place] [address] [place] [id number] [place] [address] 77462- 8937 Sep, [place] [id number] [place] [address] 94788- 9417 Sep, Dysthymic disorder F34.1 and Generalized anxiety disorder F41.1 [place] [id number] [place] [address] 79872- 0635 16 Sep, 2015 Asthma with acute exacerbation in adult J45.901 ; Dysuria R30.0 ; Chronic kidney disease, stage 4 (severe) N18.4 and History of anemia Z86.2 [place] [id number] [place] [address] 24199- 0741 2015 Generalized anxiety disorder F41.1 and Dysthymic disorder F34.1 [place] [address] 35073- 6176 August, Screening breast examination Z12.39 and Acute recurrent maxillary sinusitis J01.[address] 51659- 3594 August, Osteoarthritis of knees, bilateral M17.[address] 40915- 2578 August, Chronic kidney disease, stage 4 (severe) N18.4 ; Acute non- recurrent maxillary sinusitis J01.00 ; Urinary problem R39.89 ; Bowel habit changes R19.4 ; Functional 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 and History of colon polyps Z86.010 [place] [id number] [place] [address] 15926- 8034 Jul, Dysthymic disorder F34.1 and Generalized anxiety disorder F41.1 [place] [id number] [place] [address] 08609- 3456 Jul, [place] [id number] [place] [address] 16197- 9832 Jul, Dysthymic disorder F34.1 ; Generalized anxiety disorder F41.1 and exterminator use of drug Z79.899 [place] [id number] [place] [address] 66084- 3046 Jul, [place] [id number] [place] [address] 06983- 2367 Jun, [address] [id number] [place] [address] 62209- 7748 Jun, [facility] [id number] [place] [address] 57026- 1402 May, [facility] [id number] [place] [address] 15253- 0511 May, Dysthymic disorder F34.1 and Generalized anxiety disorder F41.1 [place] [id number] [place] [address] 44654- 2842 Apr, Kidney disease N28.9 [place] [id number] [place] [address] 90494- 8411 Apr, Generalized anxiety disorder F41.1 and Dysthymic disorder F34.1 [place] [id number] [place] [address] 27153- 6783 Apr, Chronic kidney disease, stage 4 (severe) N18.4 [place] [id number] [place] [address] 60390- 2978 Apr, Generalized anxiety disorder F41.1 ; Major depression, recurrent F33.9 and Sleep disturbance G47.9 [place] [id number] [place] [address] 34705- 5465 Mar, Generalized anxiety disorder F41.1 and Dysthymic disorder F34.1 [place] [id number] [place] [address] 88848- 0677 Mar, Generalized anxiety disorder F41.1 ; Dysthymic disorder F34.1 and Insomnia G47.00 [place] [id number] [place] [address] 29877- 7369 Mar, [place] [id number] [place] [address] 69865- 1366 Mar, [address] [address] [id number] [place] [address] 40004- 0254 Mar, Osteoarthritis of knees, bilateral M17.0 [facility] [id number] [place] [address] 79533- 4898 Mar, Hypertension I10 ; Hypothyroid E03.9 ; Dysthymic disorder F34.1 ; Chronic kidney disease, stage 4 (severe) N18.4 and Nausea & vomiting R11.2 [facility] [id number] [place] [address] 88535- 7808 Mar, Generalized anxiety disorder F41.1 ; Dysthymic disorder F34.1 and Insomnia G47.00 [place] [id number] [place] [address] 90152- 8358 Mar, Dehydration E86.0 ; Chronic kidney disease, stage 4 (severe ) N18.4 and Nausea & vomiting R11.2 [facility] [id number] [place] [address] 12614 -9350 Mar, Gastroenteritis K52.9 [place] [address] 07446- 6648 Mar, [facility] [id number] [place] [address] 86792- 8262 Mar, [place] [id number] [place] [address] 19089- 7382 Feb, Dysthymic disorder F34.1 and Generalized anxiety disorder F41.1 [facility] [id number] [place] [address] 37260- 1957 Jan, UTI (urinary tract infection) N39.0 ; Asthma J45.909 ; Coronary artery disease involving tu[place] coronary artery of tu[place]ne heart, angina presence unspecified I25.10 ; Hypertension I10 ; Hypothyroid E03.9 ; Vitamin D deficiency E55.9 ; Insomnia G47.00 ; Palpitations R00.2 ; Depressed F32.9 ; Restless leg G25.81 and Anxiety F41.9 [place] [id number] [place] [address] 29859- 4291 Jan, Dysthymic disorder F34.1 and Generalized anxiety disorder F41.1 [place] [id number] [place] [address] 65646- 1962 07 Jan, 2015 [place] [id number] [place] [address] 81287- 8404 30 Dec, 2014 [place] [id number] [place] [address] 56810- 0246 28 Dec, 2014 Alkalosis 276.3 ; Chronic kidney disease, 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.4 ; Hyperpotassemia 276.7 ; Secondary hyperparathyroidism, renal 588.81 ; Proteinuria 791.0 ; Unspecified vitamin D deficiency 268.9 ; Anemia in chronic kidney disease 285.21 ; Other and unspecified hyperlipidemia 272.4 ; Hypertension, essential, benign 401.1 and Chronic kidney disease (CKD), stage III (moderate) 585.3 [place] [id number] [place] [address] 27686- 5915 16 Dec, 2014 [place] [id number] [place] [address] 75072- 8699 16 Dec, 2014 Depressive disorder, not elsewhere classified 311 and Generalized anxiety disorder 300.02 [place] [id number] [place] [address] 60151- 2116 10 Dec, 2014 [place] [id number] [place] [address] 95885- 1769 08 Dec, 2014 [place] [id number] [place] [address] 47141- 5178 Nov, Depressive disorder, not elsewhere classified 311 and Generalized anxiety disorder 300.02 [place] [id number] [place] [address] 71113- 8842 Nov, Arthritis of both knees 716.96 [id number] [place] [address] 70536- 2150 07 Nov, 2014 PAF (paroxysmal atrial fibrillation) 427.31 ; CAD (coronary artery disease) 414.00 ; Chest pain 786.50 and Chronic kidney disease (CKD) stage G4/A1, severely decreased glomerular filtration rate (GFR) between 15-29 mL/min/1.73 square meter and albuminuria creatinine ratio less than 30 mg/g 585.4 [id number] [place] [address] 09873- 1764 Oct, Coronary atherosclerosis of unspecified type of vessel, tu[place]ne or graft 414.00 ; Chronic kidney disease, 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.4 ; Hypertension 401.9 and Edema 782.[address] 47628- 7909 Oct, Depressive disorder, not elsewhere classified 311 and Generalized anxiety disorder 300.[address] 05634- 8399 Oct, Depressive disorder, not elsewhere classified 311 and Generalized anxiety disorder 300.02 [id number] [place] [address] 82177- 4553 Oct, [address] 68967- 3113 Oct, [id number] [place] [address] 25848- 5956 Sep, [id number] [place] [address] 06067- 8202 Sep, Chronic kidney disease, 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.4 [id number] [place] [address] 58295- 6649 Sep, [id number] [place] [address] 08928- 9386 Sep, Coronary atherosclerosis of unspecified type of vessel, tu[place] or graft 414.00 ; Hypertension 401.9 ; Edema 782.3 and Hypothyroidism 244.9 [id number] [place] [address] 97089- 6305 Sep, Coronary atherosclerosis of unspecified type of vessel, tu[place] or graft 414.00 ; Hypertension 401.9 ; Fibromyalgia 729.1 ; Edema 782.3 ; Hypothyroidism 244.9 and Anemia 285.9 [facility] [address] [address]- 5269 04 Sep, 2014 Anxiety disorder, unspecified 300.00 and Depressive disorder , not elsewhere classified 311 [facility] [address] [address]- 1439 Sep, [facility] [id number] [place] [address] 66557- 8799 August, Generalized anxiety disorder 300.02 [facility] [id number] [address]- 5340 August, Closed fracture of lateral malleolus 824.2 [facility] [id number] [place] [address] 66545- 6677 Jul, [facility] [id number] [place] [address] 17803- 4540 Jul, [facility] [id number] [address]- 1407 Jun, [facility] [address] [address]- 7039 Jun, [facility] [address] [address]- 9479 Jun, [facility] [address] [address]- 7906 Jun, [facility] [address] [address]- 9121 Jun, [facility] [address] [address]- 8813 Jun, [facility] [id number] [address]- 2697 May, [facility] [id number] [address]- 2116 May, [facility] [id number] [place] [address], [place] [address]- 9066 18 May, 2014 [facility] [place] [facility] [address] [id number] [place] [address]- 1966 18 May, 2014 [facility] [place] [facility] [address] [id number] [place] [address] 2546 16 May, 2014 [facility] [place] [facility] [address] [id number] [place] [address] 2546 16 May, 2014 [facility] [place] [facility] [address] [id number] [place] [address] 2546 13 May, 2014 [facility] [place] [facility] [address] [id number] [place] [address]- 5976 13 May, 2014 [facility] [place] [facility] [address] [id number] [place] [address]- 2546 10 May, 2014 [facility] [place] [facility] [address] [id number] [place] [address]- 4497 10 May, 2014 [facility] [place] [facility] [address] [id number] [place] [address]- 5734 Apr, [facility] [place] [facility] [address] [id number] [place] [address]- 0227 Apr, [facility] [place] [facility] [address] [facility] [id number] [place] [address]- 4643 Mar, [facility] [place] [facility] [address] [id number] [place] [address]- 2546 Mar, [facility] [place] [facility] [address] [id number] [place] [address] 2541 Mar, [facility] [place] [facility] [address] [id number] [place] [address] 2546 Mar, [facility] [place] [facility] [address] [id number] [place] [address]- 2546 Mar, [facility] [place] [facility] [address] [id number] [place] [address]- 0419 Mar, [facility] [place] [facility] [address] [id number] [place] [address]- 0015 Mar, [facility] [place] [facility] [address] [id number] [place] [address]- 9579 Feb, [facility] [place] [facility] [address] [id number] [place] [address]- 8527 Feb, [facility] [place] [facility] [address] [id number] [place] [address]- 9162 Feb, [facility] [place] [facility] [address] [id number] [place] [address]- 0343 Jan, [facility] [place] [facility] [address] [id number] [place] [address]- 1440 Jan, [facility] [place] [facility] [address] [id number] [place] [address]- 1984 Jan, [facility] [place] [facility] [address] [id number] [place] [address]- 1775 Jan, [facility] [place] [facility] [address] [id number] [place] [address]- 4299 Jan, [facility] [place] [facility] [address] [id number] [place] [address]- 1421 Jan, [facility] [place] [facility] [address] [id number] [place] [address]- 4552 Jan, [facility] [place] [facility] [address] [id number] [address]- 7102 Jan, [facility] [place] [facility] [address] [id number] [place] [address]- 3298 Jan, [facility] [place] [facility] [address] [id number] [address]- 5890 Jan, [facility] [place] [facility] [address] [id number] [place] [address]- 9682 Nov, [facility] [place] [facility] [address] [id number] [place] [address]- 2091 Nov, [facility] [place] [facility] [address] [id number] [place] [address]- 8888 Nov, [facility] [place] [facility] [address] [id number] [place] [address]- 0442 Oct, [facility] [place] [facility] [address] [id number] [place] [address]- 0861 Oct, [facility] [place] [facility] [address] [id number] [place] [address]- 6314 Oct, [facility] [place] [facility] [address] [id number] [place] [address]- 2440 Oct, [facility] [place] [facility] [address] [id number] [place] [address]- 7458 Oct, [facility] [place] [facility] [address] [id number] [place] [address]- 2139 Oct, [facility] [place] [facility] [address] [id number] [place] [address]- 1339 Oct, [facility] [place] [facility] [address] [id number] [place] [address]- 7012 Oct, [facility] [place] [facility] [address] [id number] [place] [address]- 5646 Oct, [facility] [place] [facility] [address] [id number] [place] [address]- 2945 Sep, [facility] [place] [facility] [address] [id number] [place] [address]- 7130 Sep, [facility] [place] [facility] [address] [id number] [place] [address]- 7300 Sep, [facility] [place] [facility] [address] [id number] [place] [address]- 2463 Sep, [facility] [place] [facility] [address] [id number] [place] [address]- 0002 Sep, [facility] [place] [facility] [address] [id number] [place] [address]- 1902 Sep, [facility] [place] [facility] [address] [id number] [place] [address]- 1525 Sep, [facility] [place] [facility] [address] [id number] [place] [address]- 7814 Sep, [facility] [place] [facility] [address] [id number] [place] [address]- 2190 Sep, [facility] [place] [facility] [address] [id number] [place] [address]- 3724 August, [facility] [place] [facility] [address] [id number] [place] [address]- 5763 August, [facility] [place] [facility] [address] [id number] [place] [address]- 9252 August, [facility] [place] [facility] [address] [id number] [place] [address]- 7708 August, [facility] [place] [facility] [address] [id number] [place] [address]- 3472 August, [facility] [place] [facility] [address] [id number] [place] [address]- 8365 August, [facility] [place] [facility] [address] [id number] [place] [address]- 2361 Jul, [facility] [place] [facility] [address] [id number] [place] [address]- 8739 Jul, [facility] [place] [facility] [address] [id number] [place] [address]- 5992 Jul, [facility] [place] [facility] [address] [id number] [place] [address]- 7750 Jul, [facility] [place] [facility] [address] [id number] [place] [address]- 7519 Jul, [facility] [place] [facility] [address] [id number] [place] [address]- 3024 Jul, [facility] [place] [facility] [address] [id number] [place] [address]- 8856 Jun, [facility] [place] [facility] [address] [id number] [place] [address]- 5044 Jun, [facility] [place] [facility] [address] [id number] [place] [address]- 2263 May, [facility] [place] [facility] [address] [id number] [place] [address]- 2008 May, [facility] [place] [facility] [address] [id number] [place] [address]- 7806 May, [facility] [place] [facility] [address] [id number] [place] [address]- 7500 May, [facility] [place] [facility] [address] [id number] [place] [address]- 1248 Apr, [facility] [place] [facility] [address] [id number] [place] [address]- 5991 Apr, [facility] [place] [facility] [address] [id number] [place] [address]- 1539 Mar, [facility] [place] [facility] [address] [facility] [id number] [place] [address]- 8999 Mar, [facility] [place] [facility] [address] [id number] [place] [address]- 4063 Mar, [facility] [place] [facility] [address] [id number] [place] [address]- 7476 17 Mar, 2013 [facility] [place] [facility] [address] [id number] [place] [address]- 6029 05 Mar, 2013 [facility] [place] [facility] [address] [id number] [place] 7870 05 Mar, 2013 [facility] [place] [facility] [address] [facility] [id number] [place] [address]- 0349 Feb, [facility] [place] [facility] [address] [id number] [place] [address]- 7706 Feb, [facility] [place] [facility] [address] [id number] [place] [address]- 6546 Feb, [facility] [place] [facility] [address] [id number] [place] [address]- 0031 Feb, [facility] [place] [facility] [address] [id number] [place] [address]- 5659 Feb, [facility] [place] [facility] [address] [id number] [place] [address]- 1447 Feb, [facility] [place] [facility] [address] [id number] [place] [address]- 9198 Jan, [facility] [place] [facility] [address] [id number] [place] [address]- 0903 Jan, [facility] [place] [facility] [address] [id number] [place] [address]- 6139 Jan, [facility] [place] [facility] [address] [id number] [place] [address]- 1571 Jan, [facility] [place] [facility] [address] [id number] [place] [address]- 4633 Jan, [facility] [place] [facility] [address] [id number] [place] [address]- 7100 Jan, [facility] [place] [facility] [address] [id number] [place] [address]- 1877 Dec, [facility] [place] [facility] [address] [id number] [place] [address]- 2337 Dec, [facility] [place] [facility] [address] [id number] [place] [address]- 2548 Nov, [facility] [place] [facility] [address] [id number] [place] [address]- 2546 Nov, [facility] [place] [facility] [address] [id number] [place] 6323 Oct, [facility] [address] [id number] [place] [address]- 9446 Oct, [facility] [place] [facility] [address] [id number] [place] [address]- 1892 Oct, [facility] [place] [facility] [address] [id number] [place] [address]- 0237 Oct, [facility] [place] [facility] [address] [id number] [place] [address]- 8871 Oct, [facility] [address] [id number] [place] [address]- 1852 Oct, [facility] [place] [facility] [address] [id number] [place] [address]- 0132 Sep, [facility] [place] [facility] [address] [id number] [place] [address]- 9980 Sep, [facility] [place] [facility] [address] [id number] [place] [address]- 0894 Sep, [facility] [place] [facility] [address] [id number] [place] [address]- 2107 Sep, [facility] [place] [facility] [address] [id number] [place] [address]- 3259 August, [facility] [place] [facility] [address] [id number] [place] [address]- 7400 August, [facility] [place] [facility] [address] [id number] [place] [address]- 6804 August, [facility] [place] [facility] [address] [id number] [place] [address]- 3875 August, [facility] [place] [facility] [address] [id number] [place] [address]- 6677 August, [facility] [place] [facility] [address] [id number] [place] [address]- 6325 Jul, [facility] [place] [facility] [address] [id number] [place] [address]- 1645 Jul, [facility] [address] [id number] [place] [address]- 1752 15 Jul, 2012 [facility] [place] [facility] [address] [id number] [place] [address]- 9848 Jul, [facility] [place] [facility] [address] [id number] [place] [address] Jul, [facility] [place] [facility] [address] [id number] [place] [address] Jul, [facility] [place] [facility] [address] [id number] [place] [address] Jul, [facility] [place] [facility] [address] [id number] [place] [address] Jul, [facility] [address] [id number] [place] [address] Jul, [facility] [place] [facility] [address] [id number] [place] [address] Jul, [facility] [address] [facility] [id number] [id number] Jun, [facility] [place] [facility] [address] [id number] [place] [address] Jun, [facility] [place] [facility] [address] [id number], [place] [address] Jun, [facility] [place] [facility] [address] [id number], [place] [address] Jun, [facility] [place] [facility] [address] [id number] [place] [address] Jun, [facility] [place] [facility] [address] [id number] [place] [address] May, [facility] [place] [facility] [address] [id number] [place] [address] May, [facility] [place] [facility] [address] [id number] [place] [address] May, [facility] [place] [facility] [address] [id number] [place] [address] Apr, [facility] [place] [facility] [address] [id number] [place] [address] Apr, [facility] [place] [facility] [address] [id number] [place] [address] Apr, [facility] [place] [facility] [address] [id number] [place] [address] Apr, [facility] [place] [facility] [address] [id number] [place] [address] Apr, [facility] [place] [facility] [address] [id number] [place] [address] Apr, [facility] [place] [facility] [address] [id number] [place] [address] Mar, [facility] [place] [facility] [address] [id number] [place] [address] Mar, [facility] [place] [facility] [address] [id number] [place] [address] Mar, [facility] [place] [facility] [address] [id number] [place] [address] Mar, [facility] [place] [facility] [address] [id number] [place] [address] Feb, [facility] [place] [facility] [address] [id number] [place] [address] Feb, [facility] [place] [facility] [address] [id number] [place] [address] Feb, [facility] [place] [facility] [address] [id number] [place] [address] Feb, [facility] [place] [facility] [address] [id number] [place] [address] Feb, [facility] [place] [facility] [address] [id number] [place] [address] Feb, [facility] [place] [facility] [address] [id number] [place] [address] Feb, [facility] [place] [facility] [address] [facility] [id number] [place] [address] Feb, [facility] [place] [facility] [address] [id number] [place] [address] Feb, [facility] [place] [facility] [address] [id number] [place] [address] Feb, [facility] [place] [facility] [address] [id number] [place] [address] Feb, [facility] [place] [facility] [address] [facility] [id number] [place] [address] Feb, [facility] [place] [facility] [address] [id number], [place] [address] Feb, [facility] [place] [facility] [address] [id number], [place] [address] Feb, [facility] [place] [facility] [address] [facility] [id number], [place] [address] Feb, [facility] [place] [facility] [address] [id number], [place] [address] Feb, [facility] [place] [facility] [address] [id number], [place] [address] Jan, [facility] [place] [facility] [address] [id number], [place] [address] Jan, [facility] [place] [facility] [address] [facility] [id number], [place] [address] Jan, [facility] [place] [facility] [address] [facility] [id number], [place] [address] Jan, [facility] [place] [facility] [address] [id number] [place] [address] 30 Jan, 2012 [facility] [place] [facility] [address] [id number] [place] [address] 25 Jan, 2012 [facility] [place] [facility] [address] [id number] [place] [address] 25 Jan, 2012 [facility] [place] [facility] [address] [id number] [place] [address] 16 Jan, 2012 [facility] [place] [facility] [address] [id number] [place] [address] 16 Jan, 2012 [facility] [place] [facility] [address] [id number] [place] [address] 15 Jan, 2012 [facility] [place] [facility] [address] [id number] [place] [address] 15 Jan, 2012 [facility] [place] [facility] [address] [id number] [place] [address] Jan, [facility] [place] [facility] [address] [id number] [place] [address] 254 26 Sep, 2011 [facility] [place] [facility] [address] [address] [id number] [place] [address]46 26 Sep, 2011 [facility] [place] [facility] [address] [facility] [id number] [place] [address] 2544 24 Sep, 2011 [facility] [place] [facility] [address] [id number] [place] [address] 2546 23 Sep, 2011 [facility] [place] [facility] [address] [id number] [place] [address] 2546 22 Sep, 2011 [facility] [place] [facility] [address] [id number] [place] [address] 2546 21 Sep, 2011 [facility] [place] [facility] [address] [facility] [id number] [place] [address] 2546 20 Sep, 2011 [facility] [place] [facility] [address] [id number] [place] [address] 2549 20 Sep, 2011 [facility] [place] [facility] [address] [id number] [place] [address] Dec, 2011 [facility] [place] [facility] [address] [id number] [place] [address] Dec, 2011 [facility] [place] [facility] [address] [id number] [place] [address] 67[address] Dec, 2011 [facility] [place] [facility] [address] [id number] [place] [address] 05 Dec, 2011 [facility] [place] [facility] [address] [id number] [place] [address] Nov, [facility] [place] [facility] [address] [id number] [place] [address] Nov, [facility] [place] [facility] [address] [id number] [place] [address] Nov, [facility] [place] [facility] [address] [id number] [place] [address] Nov, [facility] [place] [facility] [address] [id number] [place] [address] Nov, [facility] [place] [facility] [address] [id number] [place] [address] Nov, [facility] [place] [facility] [address] [id number] [place] [address] 94[address] Nov, [facility] [place] [facility] [address] [id number] [place] [address] 9844 Nov, [facility] [place] [facility] [address] [id number] [place] [address] Oct, [facility] [place] [facility] [address] [id number] [place] [address] Oct, [facility] [place] [facility] [address] [id number] [place] [address] 1104 Oct, [facility] [place] [facility] [address] [id number] [place] [address] 4658 Oct, [facility] [place] [facility] [address] [id number] [place] [address] 8728 Oct, [facility] [place] [facility] [address] [id number] [place] [address] 4486 Oct, [facility] [place] [facility] [address] [id number] [place] [address] 7366 Oct, [facility] [place] [facility] [address] [id number] [place] [address] Sep, [facility] [place] [facility] [address] [id number] [place] [address] Sep, [facility] [place] [facility] [address] [id number] [place] [address] 37[address] August, [facility] [place] [facility] [address] [id number] [place] [address] August, [facility] [place] [facility] [address] [id number] [place] [address] August, [facility] [place] [facility] [address] [id number] [place] [address] August, [facility] [place] [facility] [address] [id number] [place] [address] Jul, [facility] [place] [facility] [address] [id number] [place] [address] Jul, [facility] [place] [facility] [address] [id number] [place] [address] 4267 Jul, [facility] [place] [facility] [address] [id number] [place] [address]208 Jul, [facility] [place] [facility] [address] [id number] [place] [address] 7680 Jul, [facility] [place] [facility] [address] [id number] [place] [address]265 Jul, [facility] [place] [facility] [address] [id number] [place] [address] 4218 03 Jul, 2011 [facility] [address] [id number] [place] [address] 68[address] Jul, [facility] [place] [facility] [address] [id number] [place] [address] Jul, [facility] [address] [id number] [place] [address] 23 Jun, 2011 [facility] [address] [id number] [place] [address] 7[address] 19 Jun, 2011 [facility] [address] [id number] [place] [address] 117[address] 15 Jun, 2011 [facility] [address] [id number] [place] [address] 1561 14 Jun, 2011 [facility] [address] [id number] [place] [address] 3899 Jun, [facility] [address] [id number] [place] [address] 2634 Jun, [facility] [address] [id number] [place] [address] 6914 Jun, [facility] [address] [id number] [place] [address] May, [facility] [place] [facility] [address] [id number] [place] [address]87 24 May, 2011 [facility] [address] [id number] [place] [address] 5616 16 May, 2011 [facility] [place] [facility] [address] [id number] [place] [address]39 16 May, 2011 [facility] [place] [facility] [address] [id number] [place] [address] 8736 03 May, 2011 [facility] [place] [facility] [address] [id number] [place] [address] 8764 Apr, [facility] [place] [facility] [address] [id number] [place] [address] 3211 Apr, [facility] [place] [facility] [address] [id number] [place] [address] 13 Apr, 2011 [facility] [place] [facility] [address] [id number] [place] [address]- 2876 Apr, [facility] [place] [facility] [address] [id number] [place] [address] 3032 Apr, [facility] [place] [facility] [address] [id number] [place] [address] 6874 Mar, [facility] [place] [facility] [address] [id number] [place] [address] 6041 Mar, [facility] [place] [facility] [address] [id number] [place] [address]- 8297 Mar, [facility] [place] [facility] [address] [id number] [place] [address]- 2672 Mar, [facility] [place] [facility] [address] [id number] [place] [address] 9909 Mar, [facility] [place] [facility] [address] [id number] [place] [address]- 1591 Mar, [facility] [place] [facility] [address] [id number], [place] [address] Mar, [facility] [place] [facility] [address] [id number], [place] [address] Feb, [facility] [place] [facility] [address] [id number] [place] [address]646 Feb, [facility] [place] [facility] [address] [id number], [place] [address] Feb, [facility] [place] [facility] [address] [id number] [place] [address] 2546 Feb, [facility] [place] [facility] [address] [id number] [place] [address] 6316 31 Jan, 2011 [facility] [address] [id number] [place] [address] Jan, [facility] [address] [id number] [place] [address] 2546 Jan, [facility] [address] [id number] [place] [address] 2546 Jan, [facility] [address] [id number] [place] [address] 2546 Nov, [facility] [address] [id number] [place] [address] 7016 Mar, [facility] [address] [id number] [place] [address]- 7006 Mar, [facility] [address] [facility] [id number] [place] [address]- [address]106 Mar, [facility] [address] [facility] [id number] [place] [address]- 2543 Mar, [facility] [address] [facility] [id number] [place] [address] 2546 Mar, [facility] [address] [facility] [id number] [place] [address] 2544 Mar, [facility] [address] [facility] [id number] [place] [address] 2546 Feb, [facility] [address] [facility] [id number] [place] [address] 2546 30 Feb, 2010 [facility] [address] [facility] [id number] [place] [address] 2546 Jan, [facility] [address] [facility] [id number] [place] [address]- 2546 Jan, [facility] [address] [facility] [id number] [place] [address]- [address]46 14 Jan, 2009 IMMUNIZATIONS No Known Immunizations SOCIAL HISTORY Never Assessed REASON FOR VISIT medication question PLAN OF CARE VITAL SIGNS MEDICATIONS Unknown [...] & 2007 Surgical History Bladder surgery [facility] 03/2016 Surgical History Neurotransmitter placed 10/2017 Hospitalization History Surgeries Only Hospitalization History bacterial meningitis December 2016 Hospitalization History [facility] psych for SI 1988 Hospitalization History [facility]-Altered mental status 05/2017
--- OUTSIDE RECORDS SUMMARY | 2018-05-29 07:58 | XMS REPORT ---
Author Author ZHANE BOSCH [facility] Address [address] [place] [address] Care Team Providers Care Adjunct Latin Professor Name Role Phone ZHANE BOSCH Unavailable PROBLEMS Type Condition ICD9-CM Code [id number] Code Onset Dates Condition Status SNOMED Code Problem Long-term use of high-risk medication Z79.899 Active 235462208 Problem Abnormal chest CT R93.8 Active 205118110 Problem Generalized anxiety disorder F41.1 Active 51328529 Problem Low back pain M54.5 Active 350764622 Problem Dysthymic disorder F34.1 Active 59600587 Problem Depressed F32.9 Active 07143265 Problem Coronary artery disease involving [place] coronary artery of [place] heart, angina presence unspecified I25.10 Active 4401558807318 Problem Hypothyroid E03.9 Active 60741344 Problem Insomnia G47.00 Active 338647610 Problem Vitamin D deficiency E55.9 Active 17752322 Problem Asthma J45.909 Active 750967829 Problem Chronic kidney disease, unspecified N18.9 Active 315364857 Problem Palpitations R00.2 Active 15384021 Problem Anemia in chronic kidney disease D63.1 Active 839417401881783 Problem Primary osteoarthritis of left knee M17.12 Active 526589407 Problem Bipolar disorder, current episode manic without psychotic features F31.10 Active 075881395 Problem Restless leg syndrome G25.81 Active 59079546 Problem Seasonal allergic rhinitis due to pollen J30.1 Active 36542583 Problem Functional 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 Active 19419298 Problem Chronic kidney disease, stage 4 (severe) N18.4 Active 361984143 Problem Restless leg G25.81 Active 88137142 Problem Mood disorder F39 Active 17342355 Problem Degenerative tear of medial meniscus of left knee M23.204 Active 499187793 Problem Body mass index (BMI) of 40.0-44.9 in adult Z68.41 Active 712601175 Problem Stage 3 chronic kidney disease N18.3 Active 222501485 Problem Asthma with acute exacerbation in adult J45.901 Active 367038465 Problem Other seasonal allergic rhinitis J30.2 Active 373865090 Problem History of colon polyps Z86.010 Active 408103253 Problem History of anemia Z86.2 Active 907260536 Problem Fibromyalgia M79.7 Active 660165803 Problem Essential (primary) hypertension I10 Active 14318388 Problem Hypokalemia E87.6 Active 63279798 Problem Mixed stress and urge urinary incontinence N39.46 Active 945587721 ALLERGIES No Known Allergies ENCOUNTERS Encounter Location Date Diagnosis [place] [address] 38409- 2383 Dec, [place] [address] 20126- 3240 Nov, [place] [address] 20791- 4798 Nov, [place] [address] 67386- 1558 Nov, [place] [address] 01279- 7332 Nov, Rash of hands R21 [place] [address] [place] [id number] [place] [address] 24629- 5170 Nov, Generalized anxiety disorder F41.1 and Major depressive disorder, recurrent episode with anxious distress F33.9 [place] [address] [place] [id number] [place] [address] 41053- 3086 Nov, Fibromyalgia M79.7 [place] [address] [place] [id number] [place] [address] 19415- 1891 Nov, Complicated UTI (urinary tract infection) N39.0 [facility] [address] [place] [id number] [place] [address] 21888- 9968 Oct, [place] [address] [place] [id number] [place] [address] 02591- 1313 Oct, Generalized anxiety disorder F41.1 and Major depressive disorder, recurrent episode with anxious distress F33.9 [facility] [address] [place] [id number] [place] [address] 75013- 3520 Oct, [facility] [address] [place] [id number] [place] [address] 85210- 7312 Oct, Fibromyalgia M79.7 [facility] [address] [place] [id number] [place] [address] 07297- 1934 Sep, Restless leg syndrome G25.81 and Restless leg G25.81 [facility] [address] [place] [id number] [place] [address] 72795- 9049 Sep, [facility] [address] 01220- 6104 Sep, Seasonal allergic rhinitis due to pollen J30.1 ; Screening for breast cancer Z12.31 ; Chest pain at rest R07.9 ; Restless leg syndrome G25.81 ; Essential (primary) hypertension I10 and Depressed F32.9 [facility] [address] [place] [id number] [place] [address] 20459- 1750 August, Fibromyalgia M79.7 [facility] [address] [place] [id number] [place] [address] 69625- 6776 August, [facility] [address] [place] [id number] [place] [address] 98601- 5646 August, [facility] [address] [place] [id number] [place] [address] 54751- 3680 August, Ab[address] chest [address] R93.8 [facility] [address] [place] [id number] [place] [address] 08592- 4195 August, Generalized anxiety disorder F41.1 and Major depressive disorder, recurrent episode with anxious distress F33.9 [facility] [address] [place] [id number] [place] [address] 57819- 6917 August, Abnormal chest [address] R93.8 [facility] [address] [place] [id number] [place] [address] 04846- 3247 Jul, [facility] [id number] [place] [address] 59113- 8264 Jul, Chronic kidney disease, stage 4 (severe) N18.4 [facility] [address] [address]- 4867 Jul, [facility] [address] [place] [id number] [place] [address] 62746- 4953 Jul, Restless leg G25.81 ; Mixed stress and urge urinary incontinence N39.46 and Fibromyalgia M79.7 [place] [address] [place] [id number] [place] [address] 69052- 2598 Jul, Chronic kidney disease, stage 4 (severe) N18.4 [facility] [id number] [place] [address] 46654- 7309 Jun, Orthostatic hypotension I95.1 ; Chronic kidney disease, stage 4 (severe) N18.4 ; Chest wall discomfort R07.89 and Body mass index (BMI) of 40.0-44.9 in adult Z68.41 [place] [address] [place] [id number] [place] [address] 24157- 8517 Jun, [facility] [id number] [place] [address] 68837- 3093 Jun, Orthostatic hypotension I95.1 [facility] [address] [place] [id number] [place] [address] 35005- 4202 Jun, [facility] [id number] [place] [address] 93030 -2521 Jun, Orthostatic hypotension I95.1 ; Dysuria R30.0 and Acute cystitis without hematuria N30.00 [facility] [address] [address]- 1205 Jun, [facility] [address] [place] [id number] [place] [address] 22900- 7642 Jun, Chronic kidney disease, stage 4 (severe) N18.4 [facility] [address] [place] [id number] [place] [address] 04134- 8816 Jun, Fibromyalgia M79.7 [facility] [address] [place] [id number] [place] [address] 11441- 1006 Jun, [facility] [address] [place] [id number] [place] [address] 98515- 2424 Jun, [facility] [address] [place] [id number] [place] [address] 61079- [address] May, [address] R93.8 and Stage 3 chronic kidney disease N18.3 [facility] [address] [place] [id number] [place] [address] 60578- 0282 May, Chronic kidney disease, stage 4 (severe) N18.4 [facility] [address] [place] [id number] [place] [address] 52874- 3861 May, Chronic kidney disease, stage 4 (severe) N18.4 [facility] [address] [place] [id number] [place] [address] 50201- [address] May, Ab[address] R93.8 [facility] [address] [place] [id number] [place] [address] 70830- 7334 May, [facility] [address] [place] [id number] [place] [address] 59255- 3322 May, [facility] [address] [place] [id number] [place] [address] 43551- 7474 May, Generalized anxiety disorder F41.1 and Major depressive disorder, recurrent episode with anxious distress F33.9 [facility] [address] [place] [id number] [place] [address] 50199- 8440 May, Mood disorder F39 [facility] [id number] [place] [address] 05883- 3323 Apr, [facility] [address] [place] [id number] [place] [address] 77453- 3437 Apr, Infected skin lesion L08.9 and Muscle strain of right shoulder region, initial encounter S46.911A [place] [address] [place] [id number] [place] [address] 68980- 4184 Apr, Generalized anxiety disorder F41.1 and Major depressive disorder, recurrent episode with anxious distress F33.9 [place] [address] [place] [id number] [place] [address] 30670- 1082 Apr, [place] [address] [place] [id number] [place] [address] 68390- 4344 Apr, Recent urinary tract infection Z87.440 and Hypothyroid E03.9 [place] [address] [place] [id number] [place] [address] 85885- 1090 Apr, Generalized anxiety disorder F41.1 and Major depressive disorder, recurrent episode with anxious distress F33.9 [place] [address] [place] [id number] [place] [address] 70873- 9194 Apr, Recent urinary tract infection Z87.440 [place] [address] [place] [id number] [place] [address] 36317- 9622 Mar, [facility] [id number] [place] [address] 76583 -6979 Mar, Dysuria R30.0 ; Acute cystitis without hematuria N30.00 and BMI 40.0-44.9, adult Z68.41 [place] [id number] [place] [address] 04166- 2178 Mar, [facility] [id number] [place] [address] 67207- 8603 Mar, [place] [address] [place] [id number] [place] [address] 97260- 6651 Mar, Generalized anxiety disorder F41.1 and Major depressive disorder, recurrent episode with anxious distress F33.9 [facility] [address] [place] [id number] [place] [address] 24612- 9582 Feb, Conjunctivitis, bacterial H10.9 [facility] [address] [place] [id number] [place] [address] 68251- 6895 Feb, [facility] [address] [place] [id number] [place] [address] 22977 -1606 Feb, Conjunctivitis, bacterial H10.9 [place] [address] 34647- 9553 Feb, [facility] [address] [place] [id number] [place] [address] 44774 -9013 Feb, Dysuria R30.0 ; Acute cystitis N30.00 and BMI 40.0-44.9, adult Z68.41 [place] [address] 49631- 1758 Feb, [place] [address] 58051- 4196 Feb, Generalized anxiety disorder F41.1 and Major depressive disorder, recurrent episode with anxious distress F33.9 [place] [address] 81813- 9653 Feb, Mood disorder F39 and BMI 40.0-44.9, adult Z68.41 [place] [address] [place] [id number] [place] [address] 31594- 8748 Jan, [place] [address] 80259- 1010 Jan, [place] [address] [place] [id number] [place] [address] 14742- 5996 Jan, Hypothyroid E03.9 [place] [address] 75618- 5133 Jan, [place] [address] [place] [id number] [place] [address] 85670- 3541 Jan, Chronic kidney disease, unspecified N18.9 ; Hypokalemia E87.6 ; Essential (primary) hypertension I10 ; Fibromyalgia M79.7 ; Coronary artery disease involving [place] coronary artery of [place] heart, angina presence unspecified I25.10 ; Hypothyroid E03.9 and Encounter for immunization Z23 [facility] [address] [place] [id number] [place] [address] 66093- 6364 04 Jan, 2017 Hypothyroid E03.9 [place] [address] 43332- 6298 Jan, [place] [address] [place] [id number] [place] [address] 73554- 2469 28 Dec, 2016 Vitamin D deficiency E55.9 [place] [address] 88935- 6365 28 Dec, 2016 Primary osteoarthritis of left knee M17.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 [place] [address] 94995- 8090 19 Dec, 2016 Fibromyalgia M79.7 [place] [address] [place] [id number] [place] [address] 44658- 8046 18 Dec, 2016 Mood disorder F39 [place] [address] 07433- 9310 13 Dec, 2016 [place] [address] [place] [id number] [place] [address] 32842- 9868 13 Dec, 2016 Generalized anxiety disorder F41.1 and Major depressive disorder, recurrent episode with anxious distress F33.9 [place] [address] [place] [id number] [place] [address] 41496- 4050 11 Dec, 2016 [place] [address] 24508- 0176 08 Dec, 2016 Streptococcal meningitis G00.2 [place] [address] [place] [id number] [place] [address] 80268- 4196 07 Dec, 2016 Streptococcal meningitis G00.2 [place] [address] [place] [id number] [place] [address] 59220- 4612 Dec, [facility] [id number] [place] [address] 74301- 0844 Dec, [facility] [address] [place] [id number] [place] [address] 55493- 2038 Dec, Streptococcal meningitis G00.2 [place] [address] [place] [id number] [place] [address] 30553- 7156 Dec, Major depressive disorder, recurrent episode with anxious distress F33.9 [place] [address] [place] [id number] [place] [address] 71533- 6618 Nov, Fever, unspecified fever cause R50.9 [place] [address] [place] [id number] [place] [address] 60796- 2464 Nov, [place] [address] [place] [id number] [place] [address] 88664- 9330 Nov, Hypothyroid E03.9 [place] [address] [place] [id number] [place] [address] 42877- 4132 Nov, Generalized anxiety disorder F41.1 and Major depressive disorder, recurrent episode with anxious distress F33.9 [place] [address] [place] [id number] [place] [address] 99848- 9828 Nov, [facility] [address] [place] [id number] [place] [address] [id number] Oct, Dental examination Z01.20 [place] [address] [place] [id number] [place] [address] 01455- 3300 Oct, Generalized anxiety disorder F41.1 and Major depressive disorder, recurrent episode with anxious distress F33.9 [place] [address] [place] [id number] [place] [address] 39810- 9305 Oct, Chronic kidney disease, stage 4 (severe) N18.4 [facility] [address] [place] [id number] [place] [address] 20631- 1678 Oct, [facility] [address] [address]- 1027 12 Oct, 2016 Fibromyalgia M79.7 [facility] [address] [address]- 1616 Oct, [facility] [address] [address]- 2226 Oct, Generalized anxiety disorder F41.1 ; Major depressive disorder, recurrent episode with anxious distress F33.9 and Bipolar disorder, current episode manic without psychotic features F31.10 [place] [address] [address]- 9127 Sep, [place] [id number] [place] [address] 12552- 6985 Sep, [place] [address] [address]- 0383 Sep, Vitamin D deficiency E55.9 [place] [address] [place] [address]- 5773 Sep, Vitamin D deficiency E55.9 [place] [address] [address]- 6295 Sep, [place] [address] [place] [address]- 0215 Sep, Chronic kidney disease, stage 4 (severe) N18.4 ; Hypothyroid E03.9 ; Restless leg G25.81 ; Fibromyalgia M79.7 ; Essential ( primary) hypertension I10 ; Vitamin D deficiency E55.9 ; Dyspepsia R10.13 ; Anemia in chronic kidney disease D63.1 ; Chronic kidney disease, unspecified N18.9 ; Coronary artery disease involving [place] coronary artery of [place] heart , angina presence unspecified I25.10 ; Screening breast examination Z12.39 and Low back pain M54.5 [place] [address] [address]- 4172 August, Generalized anxiety disorder F41.1 and Major depressive disorder, recurrent episode with anxious distress F33.9 [place] [address] [address]- 3411 August, Generalized anxiety disorder F41.1 and Major depressive disorder, recurrent episode with anxious distress F33.9 [place] [address] [address]- 3113 August, Fibromyalgia M79.7 [facility] [address] [place] [id number] [place] [address] 11417- 1372 Jul, Generalized anxiety disorder F41.1 and Major depressive disorder, recurrent episode with anxious distress F33.9 [place] [address] [place] [id number] [place] [address] 50123- 3808 Jul, Fibromyalgia M79.7 [place] [address] [place] [id number] [place] [address] 37307- 7615 Jul, Generalized anxiety disorder F41.1 [place] [address] [place] [id number] [place] [address] 37887- 2141 May, [place] [address] [place] [id number] [place] [address] 83960- 8580 May, Hypothyroid E03.9 [place] [id number] [place] [address] 81859- 1890 08 May, 2016 Chronic kidney disease, stage 4 (severe) N18.4 ; Hypothyroid E03.9 ; Restless leg G25.81 ; Fibromyalgia M79.7 ; Essential ( primary) hypertension I10 ; Vitamin D deficiency E55.9 ; Dyspepsia R10.13 ; Acute non-recurrent maxillary sinusitis J01.00 ; Anemia in chronic kidney disease D63.1 ; Chronic kidney disease, unspecified N18.9 and Coronary artery disease involving [place] coronary artery of [place] heart, angina presence unspecified I25.10 [place] [address], [place] [address]- 3488 02 May, 2016 Vitamin D deficiency, unspecified E55.9 [place] [address] [place] [id number] [place] [address] 56832- 9663 May, Generalized anxiety disorder F41.1 and Major depressive disorder, recurrent episode with anxious distress F33.9 [place] [address] [place] [id number] [place] [address] 78353- 6021 Apr, Pain in right knee M25.561 and Pain in left knee M25.562 [place] [address] [place] [id number] [place] [address] 10634- 5065 Apr, [place] [address] [place] [id number] [place] [address] 89949- 0445 Apr, [place] [address] [place] [id number] [place] [address] 21391- 7448 Apr, [place] [address] [place] [id number] [place] [address] 32787- 9624 Mar, Generalized anxiety disorder F41.1 and Major depressive disorder, recurrent episode with anxious distress F33.9 [place] [address] [place] [id number] [place] [address] 85183- 7669 Mar, Generalized anxiety disorder F41.1 and Major depressive disorder, recurrent episode with anxious distress F33.9 [place] [address] [place] [id number] [place] [address] 40741- 6870 Mar, [place] [address] [place] [id number] [place] [address] 79671- 2854 Mar, [place] [address] [place] [id number] [place] [address] 67455- 4962 Mar, [place] [id number] [place] [address] 81398- 8131 Mar, Asthma J45.909 and Fibromyalgia M79.7 [place] [id number] [place] [address] 51642- 1227 Mar, Chronic kidney disease, stage 4 (severe) N18.4 ; Vitamin D deficiency E55.9 and Essential (primary) hypertension I10 [place] [address] [place] [id number] [place] [address] 48993- 8427 Feb, [facility] [address] [place] [id number] [place] [address] 30484- 1902 Feb, Dysuria R30.0 ; Mixed stress and urge urinary incontinence N39.46 ; Fibromyalgia M79.7 and Chronic kidney disease, stage IV (severe) N18.4 [facility] [address] 32750- 0418 Feb, Chronic kidney disease, stage 4 (severe) N18.4 [facility] [address] [place] [id number] [place] [address] 60922- 4230 Feb, Chronic kidney disease, stage 4 (severe) N18.4 [facility] [address] [place] [id number] [place] [address] 70597- 9210 Feb, [place] [address] 72577- 2830 Feb, Vitamin D deficiency, unspecified E55.9 [facility] [address] [id number] [place] [address] 86394- 6661 Jan, [facility] [address] [place] [id number] [place] [address] 18395- 9718 Jan, [facility] [address] [id number] [place] [address] 36804- 3452 30 Dec, 2015 [facility] [address] [place] [id number] [place] [address] 19939 2542 Dec, Chronic kidney disease, stage 4 (severe) N18.4 [facility] [address] [id number] [place] [address] 30870 2545 Dec, Dysthymic disorder F34.1 and Generalized anxiety disorder F41.1 [facility] [address] [place] [id number] [place] [address] 13567 2545 27 Dec, 2015 [facility] [address] 75094- 5720 Dec, [facility] [id number] [place] [address] 08499- 7771 Dec, Dysthymic disorder F34.1 and Generalized anxiety disorder F41.1 [place] [address] [place] [id number] [place] [address] 10310- 1250 Dec, Dysuria R30.0 ; Chronic kidney disease, stage 4 (severe) N18.4 ; Hypertension I10 ; Dyspepsia R10.13 ; Yeast dermatitis B37.2 ; Palpitations R00.2 ; Hypothyroid E03.9 ; Functional 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 and Other seasonal allergic rhinitis J30.2 [facility] [address] 27890 -7656 Dec, [facility] [address] 57625 -9673 Nov, Dysuria R30.0 and Stress incontinence N39.3 [place] [address] 04230- 0167 Nov, [place] [address] 39049- 5294 Nov, [place] [address] [id number] [place] [address] 23696- 7101 Nov, Osteoarthritis of knees, bilateral M17.0 [place] [address] [id number] [place] [address] 81084- 5520 Nov, Dysthymic disorder F34.1 and Generalized anxiety disorder F41.1 [place] [id number] [place] [address] 37867- 6949 Nov, [place] [address] 53921- 7940 Nov, [place] [address] 25105- 5795 Nov, Urgency of urination R39.15 [place] [id number] [place] [address] 76789- 1608 Nov, [place] [id number] [place] [address] 20363- 3370 Nov, Chronic kidney disease, stage 4 (severe) N18.4 [place] [address] [id number] [place] [address] 80908- [id number] Oct, Hypertension I10 ; Coronary artery disease involving [place] coronary artery of [place] heart, angina presence unspecified I25.10 ; Palpitations R00.2 ; Hypothyroid E03.9 ; Right foot pain M79.671 ; Functional 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 and Other seasonal allergic rhinitis J30.2 [id number] [place] [address] [phone] Oct, Dysthymic disorder F34.1 and Generalized anxiety disorder F41.1 [id number] [place] [address] [phone] Sep, [id number] [place] [address] [phone] Sep, [address] [id number] [place] [address] [phone] Sep[id number] [place] [address] [phone] Sep, [address] [id number] [place] [address] [id number] Sep, [address] [id number] [place] [address] [phone] Sep, Dysthymic disorder F34.1 and Generalized anxiety disorder F41.1 [address] [place] [id number] [place] [address] [phone] 16 Sep, 2015 Asthma with acute exacerbation in adult J45.901 ; Dysuria R30.0 ; Chronic kidney disease, stage 4 (severe) N18.4 and History of anemia Z86.2 [address] [id number] [place] [address] 61492- 2503 Sep, Generalized anxiety disorder F41.1 and Dysthymic disorder F34.1 [address] [place] [id number] [place] [address] 35008- 3452 August, Screening breast examination Z12.39 and Acute recurrent maxillary sinusitis J01.01 [facility] [id number] [place] [address] 58576- 6296 August, Osteoarthritis of knees, bilateral M17.0 [facility] [id number] [place] [address] 58188- 5992 August, Chronic kidney disease, stage 4 (severe) N18.4 ; Acute non- recurrent maxillary sinusitis J01.00 ; Urinary problem R39.89 ; Bowel habit changes R19.4 ; Functional 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 and History of colon polyps Z86.010 [facility] [id number] [place] [address] 67904- 0861 Jul, Dysthymic disorder F34.1 and Generalized anxiety disorder F41.1 [facility] [id number] [place] [address] 93952- 4130 Jul, [facility] [id number] [place] [address] 83126- 2088 Jul, Dysthymic disorder F34.1 ; Generalized anxiety disorder F41.1 and 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 [facility] [id number] [place] [address] 51268- 7861 Jul, [facility] [id number] [place] [address] 91337- 1658 Jun, [facility] [id number] [place] [address] 07199- 4058 08 Jun, 2015 [facility] [id number] [place] [address] 31695- 1228 May, [facility] [address] [place] [address] 1541 May, Dysthymic disorder F34.1 and Generalized anxiety disorder F41.1 [facility] [id number] [place] [address] 40601- 7133 Apr, Kidney disease N28.9 [facility] [id number] [place] [address] 63127- 5993 Apr, Generalized anxiety disorder F41.1 and Dysthymic disorder F34.1 [facility] [id number] [place] [address] 14438- 5649 Apr, Chronic kidney disease, stage 4 (severe) N18.4 [facility] [address] 69582- 0162 Apr, Generalized anxiety disorder F41.1 ; Major depression, recurrent F33.9 and Sleep disturbance G47.9 [facility] [address] 73691- 8387 Mar, Generalized anxiety disorder F41.1 and Dysthymic disorder F34.1 [facility] [address] 09174- 8537 Mar, Generalized anxiety disorder F41.1 ; Dysthymic disorder F34.1 and Insomnia G47.00 [facility] [id number] [place] [address] 34758- 9384 Mar, [facility] [address] 62387- 7668 Mar, [facility] [address] 65879- 0285 Mar, Osteoarthritis of knees, bilateral M17.0 [facility] [id number] [place] [address] 11855- 3824 Mar, Hypertension I10 ; Hypothyroid E03.9 ; Dysthymic disorder F34.1 ; Chronic kidney disease, stage 4 (severe) N18.4 and Nausea & vomiting R11.2 [facility] [id number] [place] [address] 39631- 7361 15 Mar, 2015 Generalized anxiety disorder F41.1 ; Dysthymic disorder F34.1 and Insomnia G47.00 [facility] [id number] [place] [address] 45969- 2913 Mar, Dehydration E86.0 ; Chronic kidney disease, stage 4 (severe ) N18.4 and Nausea & vomiting R11.2 [facility] [id number] [place] [address] 45120 -9938 08 Mar, 2015 Gastroenteritis K52.9 [facility] [address] 50578- 9388 Mar, [facility] [id number] [place] [address] 68219- 9484 Mar, [facility] [id number] [place] [address] 95828- 4369 Feb, Dysthymic disorder F34.1 and Generalized anxiety disorder F41.1 [facility] [id number] [place] [address] 87335- 8291 Jan, UTI (urinary tract infection) N39.0 ; Asthma J45.909 ; Coronary artery disease involving [place] coronary artery of [place] heart, angina presence unspecified I25.10 ; Hypertension I10 ; Hypothyroid E03.9 ; Vitamin D deficiency E55.9 ; Insomnia G47.00 ; Palpitations R00.2 ; Depressed F32.9 ; Restless leg G25.81 and Anxiety F41.9 [facility] [id number] [place] [address] 87433- 1925 Jan, Dysthymic disorder F34.1 and Generalized anxiety disorder F41.1 [facility] [id number] [place] [address] 80044- 8557 Jan, [facility] [id number] [place] [address] 11353- 4842 Dec, [place] [id number] [place] [address] 45699- 2569 Dec, Alkalosis 276.3 ; Chronic kidney disease, 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.4 ; Hyperpotassemia 276.7 ; Secondary hyperparathyroidism, renal 588.81 ; Proteinuria 791.0 ; Unspecified vitamin D deficiency 268.9 ; Anemia in chronic kidney disease 285.21 ; Other and unspecified hyperlipidemia 272.4 ; Hypertension, essential, benign 401.1 and Chronic kidney disease (CKD), stage III (moderate) 585.3 [place] [id number] [place] [address] 57245- 3431 Dec, [address] 97978- 6051 Dec, Depressive disorder, not elsewhere classified 311 and Generalized anxiety disorder 300.[address] 07267- 0224 Dec, [place] [id number] [place] [address] 56957- 5631 Dec, [place] [id number] [place] [address] 98025- 1875 Nov, Depressive disorder, not elsewhere classified 311 and Generalized anxiety disorder 300.02 [place] [id number] [place] [address] 37983- 5196 Nov, Arthritis of both knees 716.[address] 40088- 1613 Nov, PAF (paroxysmal atrial fibrillation) 427.31 ; CAD (coronary artery disease) 414.00 ; Chest pain 786.50 and Chronic kidney disease (CKD) stage G4/A1, severely decreased glomerular filtration rate (GFR) between 15-29 mL/min/1.73 square meter and albuminuria creatinine ratio less than 30 mg/g 585.4 [place] [id number] [place] [address] 90000- 8815 Oct, Coronary atherosclerosis of unspecified type of vessel, [place] or graft 414.00 ; Chronic kidney disease, 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.4 ; Hypertension 401.9 and Edema 782.3 [facility] [id number] [place] [address] 84169- 9255 Oct, Depressive disorder, not elsewhere classified 311 and Generalized anxiety disorder 300.02 [facility] [id number] [place] [address] 85131- 3267 Oct, Depressive disorder, not elsewhere classified 311 and Generalized anxiety disorder 300.02 [facility] [id number] [place] [address] 10957- 5132 Oct, [address] 86469- 1182 Oct, [address] 90679- 9444 Sep, [address] 54068- 8238 Sep, Chronic kidney disease, 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.4 [place] [id number] [place] [address] 04271- 1377 Sep, [place] [id number] [place] [address] 15987- 4028 Sep, Coronary atherosclerosis of unspecified type of vessel, [place] or graft 414.00 ; Hypertension 401.9 ; Edema 782.3 and Hypothyroidism 244.9 [place] [id number] [place] [address] 81766- 5892 Sep, Coronary atherosclerosis of unspecified type of vessel, [place] or graft 414.00 ; Hypertension 401.9 ; Fibromyalgia 729.1 ; Edema 782.3 ; Hypothyroidism 244.9 and Anemia 285.9 [place] [id number] [place] [address] 67156- 8174 Sep, Anxiety disorder, unspecified 300.00 and Depressive disorder , not elsewhere classified [address] 16143- 1570 Sep, [facility] [address] [address]- 2919 August, Generalized anxiety disorder 300.02 [facility] [address] [place] [address]- 2481 August, Closed fracture of lateral malleolus 824.2 [facility] [id number] [place] [address] 23471- 5967 Jul, [facility] [id number] [address]- 8039 Jul, [facility] [id number] [place] [address] 24166- 1887 Jun, [facility] [id number] [place] [address] 90398- 7511 Jun, [facility] [id number] [place] [address] 04712- 2707 Jun, [facility] [address] [address]- 8451 Jun, [facility] [address] [place] [address]- 5242 Jun, [facility] [address] [place] [address]- 2052 Jun, [facility] [address] [place] [address]- 5114 May, [facility] [address] [id number] 7555 May, [facility] [address] [address]- 1145 May, [facility] [address] [id number] 2641 May, [facility] [address] [place] [address]- 0642 16 May, 2014 [facility] [place] [facility] [address] [id number] [place] [address]- 1216 16 May, 2014 [facility] [place] [facility] [address] [id number] [place] [address]- 1536 13 May, 2014 [facility] [place] [facility] [address] [id number] [place] [address]- 9066 13 May, 2014 [facility] [place] [facility] [address] [id number] [place] [address]- 0540 10 May, 2014 [facility] [place] [facility] [address] [id number] [place] [address]- 1046 10 May, 2014 [facility] [place] [facility] [address] [id number] [place] [address]- 5392 Apr, [facility] [place] [facility] [address] [id number] [place] [address]- 4643 Apr, [facility] [place] [facility] [address] [id number] [place] [address]- 6085 Mar, [facility] [place] [facility] [address] [id number] [place] [address]- 7137 Mar, [facility] [place] [facility] [address] [id number] [place] [address]- 5468 Mar, [facility] [place] [facility] [address] [id number] [place] [address]- 5536 15 Mar, 2014 [facility] [place] [facility] [address] [id number] [place] [address]- 2542 Mar, [facility] [place] [facility] [address] [id number] [place] [address]- 2542 Mar, [facility] [place] [facility] [address] [id number] [place] [address]- 6598 Mar, [facility] [place] [facility] [address] [id number] [place] [address]- 4024 Feb, [facility] [place] [facility] [address] [id number] [place] [address]- 0137 Feb, [facility] [place] [facility] [address] [id number] [place] [address]- 2261 Feb, [facility] [place] [facility] [address] [id number] [place] [address]- 7224 Jan, [facility] [place] [facility] [address] [id number] [place] [address]- 9910 Jan, [facility] [place] [facility] [address] [id number] [place] [address]- 9023 Jan, [facility] [place] [facility] [address] [id number] [place] [address]- 4698 Jan, [facility] [place] [facility] [address] [id number] [place] [address]- 2703 Jan, [facility] [place] [facility] [address] [id number] [place] [address]- 5168 Jan, [facility] [place] [facility] [address] [id number] [place] [address]- 7596 Jan, [facility] [place] [facility] [address] [id number] [place] [address]- 8864 Jan, [facility] [place] [facility] [address] [id number] [place] [address]- 5142 Jan, [facility] [place] [facility] [address] [id number] [place] [address]- 4858 Jan, [facility] [place] [facility] [address] [id number] [place] [address]- 9350 Nov, [facility] [place] [facility] [address] [id number] [place] [address]- 7094 Nov, [facility] [place] [facility] [address] [id number] [place] [address]- 8400 Nov, [facility] [place] [facility] [address] [id number] [place] [address]- 4824 Oct, [facility] [place] [facility] [address] [id number] [place] [address]- 8125 Oct, [facility] [place] [facility] [address] [id number] [place] [address]- 9456 Oct, [facility] [place] [facility] [address] [id number] [place] [address]- 5446 Oct, [facility] [place] [facility] [address] [id number] [place] [address]- 4942 Oct, [facility] [place] [facility] [address] [id number] [place] [address]- 5618 Oct, [facility] [place] [facility] [address] [id number] [place] [address]- 2998 Oct, [facility] [place] [facility] [address] [id number] [place] [address]- 1138 Oct, [facility] [place] [facility] [address] [id number] [place] [address]- 4465 Oct, [facility] [place] [facility] [address] [id number] [place] [address]- 6163 Sep, [facility] [place] [facility] [address] [id number] [place] [address]- 5087 Sep, [facility] [place] [facility] [address] [id number] [place] [address]- 2689 24 Sep, 2013 [facility] [place] [facility] [address] [id number] [place] [address]- 8522 Sep, [facility] [place] [facility] [address] [id number] [place] [address]- 5295 Sep, [facility] [place] [facility] [address] [id number] [place] [address]- 1659 Sep, [facility] [place] [facility] [address] [id number] [place] [address]- 7833 Sep, [facility] [place] [facility] [address] [id number] [place] [address]- 2042 Sep, [facility] [address] [id number] [place] [address]- 6542 Sep, [facility] [address] [id number] [place] [address]- 4277 August, [facility] [address] [id number] [place] [address]- 7433 August, [facility] [address] [id number] [place] [address]- 7254 August, [facility] [address] [id number] [place] [address]- 9237 August, [facility] [address] [id number] [place] [address]- 3449 August, [facility] [address] [id number] [place] [address]- 7564 August, [facility] [address] [id number] [place] [address]- 4784 Jul, [facility] [address] [id number] [place] [address]- 5997 Jul, [facility] [address] [id number] [place] [address]- 1662 Jul, [facility] [place] [facility] [address] [id number] [place] [address]- 2325 Jul, [facility] [place] [facility] [address] [id number] [place] [address]- 1185 Jul, [facility] [place] [facility] [address] [id number] [place] [address]- 6678 Jul, [facility] [place] [facility] [address] [id number] [place] [address]- 9083 Jun, [facility] [place] [facility] [address] [id number] [place] [address]- 4380 Jun, [facility] [place] [facility] [address] [id number] [place] [address]- 9515 May, [facility] [place] [facility] [address] [id number] [place] [address]- 4329 May, [facility] [place] [facility] [address] [id number] [place] [address]- 6282 May, [facility] [place] [facility] [address] [id number] [place] [address]- 7948 May, [facility] [place] [facility] [address] [id number] [place] [address]- 4186 Apr, [facility] [place] [facility] [address] [id number] [place] [address]- 2738 Apr, [facility] [place] [facility] [address] [id number] [place] [address]- 7293 18 Mar, 2013 [facility] [place] [facility] [address] [id number] [place] [address]- 4340 18 Mar, 2013 [facility] [place] [facility] [address] [id number] [place] [address]- 9966 17 Mar, 2013 [facility] [place] [facility] [address] [id number] [place] [address]- 9058 17 Mar, 2013 [facility] [place] [facility] [address] [id number] [place] [address]- 1199 Mar, [facility] [place] [facility] [address] [id number], [place] [address]- 3310 05 Mar, 2013 [facility] [place] [facility] [address] [id number] [place] [address]- 2794 20 Feb, 2013 [facility] [place] [facility] [address] [id number] [place] [address]- 3527 20 Feb, 2013 [facility] [place] [facility] [address] [id number] [place] [address]- 3283 14 Feb, 2013 [facility] [place] [facility] [address] [id number] [place] [address]- 6130 14 Feb, 2013 [facility] [place] [facility] [address] [id number] [place] [address]- 3588 Feb, [facility] [place] [facility] [address] [id number] [place] [address]- 7459 Feb, [facility] [place] [facility] [address] [id number] [place] [address]- 0813 Jan, [facility] [place] [facility] [address] [id number] [place] [address]- 6646 Jan, [facility] [place] [facility] [address] [id number] [place] [address]- 2133 Jan, [facility] [place] [facility] [address] [id number] [place] [address]- 2580 Jan, [facility] [place] [facility] [address] [id number] [place] [address]- 3497 Jan, [facility] [place] [facility] [address] [id number] [place] [address]- 3599 Jan, [facility] [place] [facility] [address] [id number] [place] [address]- 2093 Dec, [facility] [place] [facility] [address] [id number] [place] [address]- 4506 Dec, [facility] [place] [facility] [address] [id number] [place] [address]- 7088 Nov, [facility] [place] [facility] [address] [id number] [place] [address]- 2541 Nov, [facility] [place] [facility] [address] [id number] [place] [address]- 7054 Oct, [facility] [place] [facility] [address] [id number] [place] [address]- 2543 Oct, [facility] [place] [facility] [address] [id number] [place] [address]- 9830 Oct, [facility] [place] [facility] [address] [id number] [place] [address]- 5374 Oct, [facility] [address] [id number] [place] [address]- 4531 Oct, [facility] [place] [facility] [address] [id number] [place] [address]- 7532 Oct, [facility] [address] [id number] [place] [address]- 1664 Sep, [facility] [address] [id number] [place] [address]- 3698 Sep, [facility] [address] [id number] [place] [address]- 5353 Sep, [facility] [address] [id number] [place] [address]- 9330 Sep, [facility] [address] [id number] [place] [address]- 5095 August, [facility] [address] [id number] [place] [address]- 1426 August, [facility] [address] [id number] [place] [address]- 7281 August, [facility] [address] [id number] [place] [address]- 7259 August, [facility] [address] [id number] [place] [address]- 6212 August, [facility] [address] [id number] [place] [address]- 0002 Jul, [facility] [place] [facility] [address] [id number] [place] [address]- 8248 Jul, [facility] [place] [facility] [address] [id number] [place] [address]- 5975 Jul, [facility] [place] [facility] [address] [id number] [place] [address]- 5703 Jul, [facility] [place] [facility] [address] [id number] [place] [address]- 2316 Jul, [facility] [place] [facility] [address] [id number] [place] [address]- 2546 Jul, [facility] [place] [facility] [address] [facility] [id number] [place] [address]- 2546 Jul, [facility] [place] [facility] [address] [id number] [address]- 2546 Jul, [facility] [place] [facility] [address] [id number] [place] [address]- 2546 Jul, [facility] [place] [facility] [address] [facility] [id number] [place] [address]- 9426 Jul, [facility] [id number] [id number] Jun, [facility] [place] [facility] [address] [id number], [place] [address]- 2366 Jun, [facility] [place] [facility] [address] [id number] [place] [address] Jun, [facility] [place] [facility] [address] [id number], [place] [address] Jun, [facility] [place] [facility] [address] [id number], [place] [address] Jun, [facility] [place] [facility] [address] [id number], [place] [address] May, [facility] [place] [facility] [address] [id number] [place] [address] May, [facility] [place] [facility] [address] [id number], [place] [address] May, [facility] [place] [facility] [address] [id number], [place] [address] Apr, [facility] [place] [facility] [address] [id number] [place] [address] Apr, [facility] [address] [id number] [place] [address] Apr, [facility] [place] [facility] [address] [id number] [place] [address] Apr, [facility] [address] [id number] [place] [address] Apr, [facility] [place] [facility] [address] [id number] [place] [address] Apr, [facility] [address] [id number] [place] [address] Mar, [facility] [place] [facility] [address] [id number] [place] [address] Mar, [facility] [address] [id number] [place] [address] Mar, [facility] [place] [facility] [address] [id number] [place] [address] Mar, [facility] [place] [facility] [address] [id number] [place] [address] Feb, [facility] [address] [facility] [id number] [place] [address] Feb, [facility] [place] [facility] [address] [id number] [place] [address] Feb, [facility] [place] [facility] [address] [id number] [place] [address] Feb, [facility] [place] [facility] [address] [id number] [place] [address] Feb, [facility] [place] [facility] [address] [id number] [place] [address] Feb, [facility] [place] [facility] [address] [id number] [place] [address] Feb, [facility] [place] [facility] [address] [id number] [place] [address] Feb, [facility] [place] [facility] [address] [id number] [place] [address] Feb, [facility] [place] [facility] [address] [id number] [place] [address] Feb, [facility] [place] [facility] [id number] [place] [address], [place] [address] Feb, [facility] [place] [facility] [address] [id number] [place] [address] Feb, [facility] [place] [facility] [address] [id number] [place] [address] Feb, [facility] [place] [facility] [address] [id number] [place] [address] Feb, [facility] [place] [facility] [address] [id number] [place] [address] Feb, [facility] [place] [facility] [address] [id number] [place] [address] Feb, [facility] [place] [facility] [address] [id number] [place] [address] Jan, [facility] [place] [facility] [address] [facility] [id number] [place] [address] Jan, [facility] [place] [facility] [address] [id number], [place] [address] Jan, [facility] [place] [facility] [address] [id number] [place] [address] Jan, [facility] [place] [facility] [address] [id number] [place] [address] Jan, [facility] [place] [facility] [address] [id number] [place] [address] Jan, [facility] [place] [facility] [address] [id number], [place] [address] 25 Jan, 2012 [facility] [place] [facility] [address] [id number] [place] [address] 16 Jan, 2012 [facility] [place] [facility] [address] [id number] [place] [address] 16 Jan, 2012 [facility] [place] [facility] [address] [id number] [place] [address] 15 Jan, 2012 [facility] [place] [facility] [address] [id number] [place] [address] 15 Jan, 2012 [facility] [place] [facility] [address] [id number] [place] [address] Jan, [facility] [place] [facility] [address] [id number] [place] [address] 26 Sep2011 [facility] [place] [facility] [address] [id number] [place] [address] 26 Sep, 2011 [facility] [place] [facility] [address] [id number] [place] [address] 24 Sep, 2011 [facility] [place] [facility] [address] [id number] [place] [address] 254 23 Sep, 2011 [facility] [place] [facility] [address] [id number] [place] [address] 2546 22 Sep, 2011 [facility] [place] [facility] [address] [id number], [place] [address] 2543 21 Sep, 2011 [facility] [place] [facility] [address] [id number], [place] [address] 2546 20 Sep, 2011 [facility] [place] [facility] [address] [id number] [place] [address] 2546 20 Sep, 2011 [facility] [place] [facility] [address] [id number] [place] [address] 2546 07 Sep, 2011 [facility] [place] [facility] [address] [id number] [place] [address] 2546 06 Sep, 2011 [facility] [place] [facility] [address] [id number] [place] [address] 06 Dec, 2011 [facility] [place] [facility] [address] [id number] [place] [address] 05 Dec, 2011 [facility] [place] [facility] [address] [id number] [place] [address] Nov, [facility] [address] [id number] [place] [address] Nov, [facility] [place] [facility] [address] [id number] [place] [address] Nov, [facility] [place] [facility] [address] [id number] [place] [address] Nov, [facility] [place] [facility] [address] [id number] [place] [address] Nov, [facility] [place] [facility] [address] [id number] [place] [address] Nov, [facility] [address] [id number] [place] [address] Nov, [facility] [place] [facility] [address] [id number] [place] [address] Nov, [facility] [address] [id number] [place] [address] Oct, [facility] [place] [facility] [address] [id number] [place] [address] 2545 Oct, [facility] [place] [facility] [address] [id number] [place] [address] 2548 Oct, [facility] [place] [facility] [address] [id number] [place] [address] Oct, [facility] [place] [facility] [address] [id number] [place] [address] Oct, [facility] [place] [facility] [address] [id number] [place] [address] Oct, [facility] [address] [id number] [place] [address] 1320 Oct, [facility] [place] [facility] [address] [id number] [place] [address] Sep, [facility] [place] [facility] [address] [id number] [place] [address] Sep, [facility] [place] [facility] [address] [id number] [place] [address] August, [facility] [place] [facility] [address] [id number] [place] [address] August, [facility] [place] [facility] [address] [id number] [place] [address] August, [facility] [place] [facility] [address] [id number] [place] [address] August, [facility] [place] [facility] [address] [id number] [place] [address] 7983 Jul, [facility] [place] [facility] [address] [id number] [place] [address]68 Jul, [facility] [place] [facility] [address] [id number] [place] [address] Jul, [facility] [place] [facility] [address] [id number] [place] [address] Jul, [facility] [place] [facility] [address] [id number], [place] [address] Jul, [facility] [place] [facility] [address] [id number] [place] [address] 235[address] Jul, [facility] [place] [facility] [address] [id number] [place] [address] Jul, [facility] [place] [facility] [address] [id number] [place] [address] Jul, [facility] [place] [facility] [address] [id number], [place] [address] 02 Jul, 2011 [facility] [address] [id number] [place] [address] 23 Jun, 2011 [facility] [place] [facility] [address] [id number] [place] [address] 1366 19 Jun, 2011 [facility] [address] [facility] [id number] [place] [address] 15 Jun, 2011 [facility] [address] [id number] [place] [address]- 1871 14 Jun, 2011 [facility] [address] [id number] [place] [address] 12 Jun, 2011 [facility] [address] [facility] [id number] [place] [address] 2546 09 Jun, 2011 [facility] [address] [id number] [place] [address] Jun, [facility] [address] [id number] [place] [address] 25 May, 2011 [facility] [address] [id number] [place] [address] 24 May, 2011 [facility] [address] [id number] [place] [address] 1436 16 May, 2011 [facility] [address] [id number] [place] [address] 6[address] 16 May, 2011 [facility] [place] [facility] [address] [facility] [id number] [place] [address]- 2546 May, [facility] [place] [facility] [address] [id number] [place] [address]- 18[address] Apr, [facility] [place] [facility] [address] [facility] [id number] [place] [address] 2546 Apr, [facility] [place] [facility] [address] [id number] [place] [address]- 3766 Apr, [facility] [place] [facility] [address] [id number] [place] [address]- 277[address] Apr, [facility] [address] [id number] [place] [address] 8051 Apr, [facility] [address] [id number] [place] [address] 2068 Mar, [facility] [place] [facility] [address] [id number] [place] [address] 2604 Mar, [facility] [address] [id number] [place] [address] 89[address] Mar, [facility] [place] [facility] [address] [id number] [place] [address] Mar, [facility] [address] [id number] [place] [address]- 1559 Mar, [facility] [address] [id number] [place] [address]- 9259 Mar, [facility] [place] [facility] [address] [id number] [place] [address]- 1491 Mar, [facility] [place] [facility] [address] [id number] [place] [address] 1258 Feb, [facility] [place] [facility] [address] [id number] [place] [address]- 7021 Feb, [facility] [place] [facility] [address] [id number] [place] [address]- 3131 Feb, [facility] [place] [facility] [address] [id number] [place] [address]- 5493 Feb, [facility] [place] [facility] [address] [id number] [place] [address]- 6041 Jan, [facility] [place] [facility] [address] [id number] [place] [address]- 3200 Jan, [facility] [place] [facility] [address] [id number], [place] [address] Jan, [facility] [address] [facility] [id number], [place] [address] Jan, [facility] [address] [facility] [id number][place] [address] [address] Nov, [facility] [address] [id number], [place] [address] Mar, [facility] [address] [facility] [id number], [place] [address] 2540 Mar, [facility] [address] [facility] [id number], [place] [address]- 2435 Mar, [facility] [address] [facility] [id number], [place] [address]- 1856 Mar, [facility] [id number], [place] [address] Mar, [facility] [id number], [place] [address] Mar, [facility] [address] [id number], [place] [address] Feb, [facility] [address] [id number], [place] [address] Feb, [facility] [address]65[address], [place] [address] Jan, [facility] [address]65[address], [place] [address] Jan, [facility] [address]65[address], [place] [address] Jan, IMMUNIZATIONS No Known Immunizations SOCIAL HISTORY Never Assessed REASON FOR VISIT per Gloria, c/o tiredness, had external neurotransmitter placed 09/27/17 in [place], and removed it two nights ago. states that this device helped her. PLAN OF CARE Activity Details Follow Up 3 months Reason: VITAL SIGNS Height 63 in 2017-10-04 Weight 188.6 lbs 2017-10-04 Temperature 98.1 degrees Fahrenheit 2017-10-04 Heart Rate 62 bpm 2017-10-04 Respiratory Rate 20 2017-10-04 BMI 33.41 kg/m2 2017-10-04 Blood pressure systolic 130 mmHg 2017-10-04 Blood pressure diastolic 58 mmHg 2017-10-04 MEDICATIONS Medication Instructions Dosage Frequency Start Date End Date Duration Status ProAir HFA 108 (90 Base) MCG/ACT 1 puff Active Pantoprazole Sodium 40 MG TAKE ONE TABLET BY MOUTH ONCE DAILY 30 Active Synthroid 150 MCG TAKE 1 TABLET BY MOUTH ONCE DAILY 30 Active Nystatin 024989 UNIT/GM Externally Twice a day 1 application to thighs as needed 12h Sep, 5 Active Requip 2 MG Orally twice a day 1 tablet 12h Sep, 30 day(s) Active Nystatin 849287 UNIT/ML Mouth/Throat Four times a day 4 ml 6h Active Vitamin D (Ergocalciferol) 38460 UNIT TAKE ONE CAPSULE BY MOUTH TWICE WEEKLY 56 Active Ipratropium [place] 0.03 % Nasally Three times a day prn drainage 1-2 sprays in each nostril as needed Active Fiber Complete - Active Toprol XL 50 mg po Once a day 1 tablet 24h 90 day Active Fish Oil 1200 MG Orally Once a day at hs 1 capsule Active Cymbalta 60 MG TAKE ONE CAPSULE BY MOUTH ONCE DAILY Active Lyrica 150 MG Orally 2 times a day 1 capsule 12h 28 days Active Gemfibrozil 600 MG TAKE ONE TABLET BY MOUTH TWICE DAILY 30 Active Tramadol HCl 50 MG Orally every 6 hrs 1 tablet as needed 6h Active Vitamin C 1000 MG Orally Once a day 1 tablet 24h Active Oxycodone-Acetaminophen 5-325 MG/5ML Orally every 6 hrs 5 ml as needed 6h Not-Taking Fluticasone Propionate 50 MCG/ACT USE ONE SPRAY IN EACH NOSTRIL TWICE DAILY Active Symbicort 80-4.5 MCG/ACT INHALE TWO PUFFS BY MOUTH TWICE DAILY. 25 Active Vitamin D-3 1000 UNIT Orally Once a day 1 tablet 24h Active Topamax 100 MG Orally Twice a day 1 tablet 12h Active Ferrous Sulfate 325 (65 Fe) MG Orally 3 times a day 1 tablet 8h Active Aspirin 325 MG Orally Once a day 1 tablet 24h Active Oxybutynin Chloride ER 10 mg Orally Once a day 1 tablet 24h August, 30 day(s) Not-Taking RESULTS Name Result Date Reference Range Mammogram, Bilateral Screening 2017-10-15 PROCEDURES Procedure Date Ordered Result Body Site [facility] VISIT ESTABLISHED PATIENT October 04, 2017 INSTRUCTIONS MEDICATIONS ADMINISTERED No Known [...] 2020 & 2007 Surgical History Bladder surgery [facility] 03/2016 Surgical History Neurotransmitter placed 10/2017 Hospitalization History Surgeries Only Hospitalization History bacterial meningitis December 2016 Hospitalization History [facility] psych for SI 1988 Hospitalization History [facility]-Altered mental status 05/2017
--- OUTSIDE RECORDS SUMMARY | 2018-05-29 07:59 | XMS REPORT ---
Author Author ISABEL MAE [facility] Address [address] [place] [address] Care Team Providers Care Hand Ironer Name Role Phone ISABEL MAE Unavailable PROBLEMS Type Condition ICD9-CM Code NLC71-FY Code Onset Dates Condition Status SNOMED Code Problem Long-term use of high-risk medication Z79.899 Active 965703521 Problem Abnormal chest CT R93.8 Active 647006173 Problem Generalized anxiety disorder F41.1 Active 80213712 Problem Low back pain M54.5 Active 730868903 Problem Dysthymic disorder F34.1 Active 54161206 Problem Depressed F32.9 Active 03425723 Problem Coronary artery disease involving [place] coronary artery of [place] heart, angina presence unspecified I25.10 Active 4397761880685 Problem Hypothyroid E03.9 Active 35850981 Problem Insomnia G47.00 Active 243683810 Problem Vitamin D deficiency E55.9 Active 02743156 Problem Asthma J45.909 Active 606291178 Problem Chronic kidney disease, unspecified N18.9 Active 992487957 Problem Palpitations R00.2 Active 91625378 Problem Anemia in chronic kidney disease D63.1 Active [id number] Problem Primary osteoarthritis of left knee M17.12 Active 347139553 Problem Bipolar disorder, current episode manic without psychotic features F31.10 Active 254397422 Problem Restless leg syndrome G25.81 Active 41124004 Problem Seasonal allergic rhinitis due to pollen J30.1 Active 93774223 Problem Functional 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 Active 95016276 Problem Chronic kidney disease, stage 4 (severe) N18.4 Active 712838831 Problem Restless leg G25.81 Active 09980550 Problem Mood disorder F39 Active 97018109 Problem Degenerative tear of medial meniscus of left knee M23.204 Active 099651482 Problem Body mass index (BMI) of 40.0-44.9 in adult Z68.41 Active 271061259 Problem Stage 3 chronic kidney disease N18.3 Active 997108038 Problem Asthma with acute exacerbation in adult J45.901 Active 489874603 Problem Other seasonal allergic rhinitis J30.2 Active 780812580 Problem History of colon polyps Z86.010 Active 944646099 Problem History of anemia Z86.2 Active 262659047 Problem Fibromyalgia M79.7 Active 552954229 Problem Essential (primary) hypertension I10 Active 49257911 Problem Hypokalemia E87.6 Active 41096515 Problem Mixed stress and urge urinary incontinence N39.46 Active 239043715 ALLERGIES No Information ENCOUNTERS Encounter Location Date Diagnosis [place] [id number] [address]- [address] Oct, [place] [address] 84736- 0603 Oct, Fibromyalgia M79.7 [place] [address] 34676- 6547 Sep, Restless leg syndrome G25.81 and Restless leg G25.81 [place] [address] [place] [id number] [place] [address] 07762- 0711 Sep, [place] [address] 48358- 6338 Sep, Seasonal allergic rhinitis due to pollen J30.1 ; Screening for breast cancer Z12.31 ; Chest pain at rest R07.9 ; Restless leg syndrome G25.81 ; Essential (primary) hypertension I10 and Depressed F32.9 [place] [address] [address] [place] [id number] [place] [address] 12168- 8658 August, Fibromyalgia M79.7 [place] [address] 17165- 6049 August, [place] [address] 29322- 2396 August, [place] [address] 37326- [address]308 August, Ab[address] chest [address] R93.8 [facility] [id number] [place] [address] 97531- 1734 August, Generalized anxiety disorder F41.1 and Major depressive disorder, recurrent episode with anxious distress F33.9 [facility] [address] [place] [id number] [place] [address] 58423- 9770 August, Ab[address] chest [address] R93.8 [facility] [address] [place] [id number] [place] [address] 74619- 5920 Jul, [place] [address] [place] [id number] [place] [address] 09347- 8572 Jul, Chronic kidney disease, stage 4 (severe) N18.4 [place] [address] [place] [id number] [place] [address] 00958- 9269 Jul, [place] [address] [place] [id number] [place] [address] 37004- 6938 Jul, Restless leg G25.81 ; Mixed stress and urge urinary incontinence N39.46 and Fibromyalgia M79.7 [place] [address] [place] [id number] [place] [address] 30704- 7212 Jul, Chronic kidney disease, stage 4 (severe) N18.4 [place] [address] [place] [id number] [place] [address] 56558- 6609 Jun, Orthostatic hypotension I95.1 ; Chronic kidney disease, stage 4 (severe) N18.4 ; Chest wall discomfort R07.89 and Body mass index (BMI) of 40.0-44.9 in adult Z68.41 [place] [address] [place] [id number] [address] 8337 Jun, [place] [address] [place] [id number] [place] [address] 54907- 4897 Jun, Orthostatic hypotension I95.1 [place] [address] [place] [id number] [place] [address] 30715- 4166 Jun, [facility] [address] [place] [id number] [place] [address] 95464 -7793 Jun, Orthostatic hypotension I95.1 ; Dysuria R30.0 and Acute cystitis without hematuria N30.00 [facility] [address] [place] [id number] [place] [address] 63225- 6879 Jun, [facility] [address] [place] [id number] [place] [address] 26786- 4002 Jun, Chronic kidney disease, stage 4 (severe) N18.4 [facility] [address] [place] [id number] [place] [address] 00165- 0991 Jun, Fibromyalgia M79.7 [facility] [address] [place] [id number] [place] [address] 77979- 8347 Jun, [facility] [address] [place] [id number] [place] [address] 50150- 4381 Jun, [facility] [address] [place] [id number] [place] [address] 88947- 9772 May, [address] chest [address] R93.8 and Stage 3 chronic kidney disease N18.3 [facility] [address] [place] [id number] [place] [address] 10404- 7594 May, Chronic kidney disease, stage 4 (severe) N18.4 [facility] [address] [place] [id number] [place] [address] 87999- 4771 May, Chronic kidney disease, stage 4 (severe) N18.4 [facility] [address] [place] [id number] [place] [address] 94281- [address] May, [address] R93.8 [facility] [address] [place] [id number] [place] [address] 61094- 1288 May, [facility] [address] [place] [id number] [place] [address] 67319- 7585 May, [facility] [address] [place] [id number] [place] [address] 29955- 1738 May, Generalized anxiety disorder F41.1 and Major depressive disorder, recurrent episode with anxious distress F33.9 [place] [id number] [place] [address] 34949- 2916 May, Mood disorder F39 [facility] [id number] [place] [address] 42517- 2675 Apr, [facility] [address] [place] [id number] [place] [address] 94189- 0102 Apr, Infected skin lesion L08.9 and Muscle strain of right shoulder region, initial encounter S46.911A [place] [address] [place] [id number] [place] [address] 87522- 6702 Apr, Generalized anxiety disorder F41.1 and Major depressive disorder, recurrent episode with anxious distress F33.9 [place] [address] [place] [id number] [place] [address] 47681- 4899 Apr, [facility] [address] [place] [id number] [place] [address] 64424- 8931 Apr, Recent urinary tract infection Z87.440 and Hypothyroid E03.9 [place] [address] [place] [id number] [place] [address] 54620- 6765 Apr, Generalized anxiety disorder F41.1 and Major depressive disorder, recurrent episode with anxious distress F33.9 [place] [address] [place] [id number] [place] [address] 51809- 1555 Apr, Recent urinary tract infection Z87.440 [place] [id number] [place] [address] 39520- 7261 Mar, [facility] [address] [place] [id number] [place] [address] 02520 -1712 Mar, Dysuria R30.0 ; Acute cystitis without hematuria N30.00 and BMI 40.0-44.9, adult Z68.41 [place] [address] [place] [id number] [place] [address] 75787- 6711 14 Mar, 2017 [facility] [id number] [place] [address] 86959- 9039 Mar, [facility] [address] [place] [id number] [place] [address] 59662- 2568 Mar, Generalized anxiety disorder F41.1 and Major depressive disorder, recurrent episode with anxious distress F33.9 [facility] [address] [place] [id number] [place] [address] 17303- 2656 Feb, Conjunctivitis, bacterial H10.9 [place] [address] [place] [id number] [place] [address] 76923- 4316 Feb, [facility] [address] [place] [id number] [place] [address] 41969 -6384 Feb, Conjunctivitis, bacterial H10.9 [place] [address] [place] [id number] [place] [address] 79125- 7984 Feb, [facility] [address] [place] [id number] [place] [address] 40536 -5196 Feb, Dysuria R30.0 ; Acute cystitis N30.00 and BMI 40.0-44.9, adult Z68.41 [place] [address] [place] [id number] [place] [address] 39354- 9900 Feb, [place] [address] [place] [id number] [place] [address] 25830- 5599 Feb, Generalized anxiety disorder F41.1 and Major depressive disorder, recurrent episode with anxious distress F33.9 [place] [address] [place] [id number] [place] [address] 62644- 2427 Feb, Mood disorder F39 and BMI 40.0-44.9, adult Z68.41 [facility] [id number] [place] [address] 86782- 9614 Jan, [facility] [address] [place] [id number] [place] [address] 49006- 2127 Jan, [place] [id number] [place] [address] 53642- 2179 Jan, Hypothyroid E03.9 [place] [address] [place] [id number] [place] [address] 69266- 6428 Jan, [place] [address] [place] [id number] [place] [address] 07269- 0217 Jan, Chronic kidney disease, unspecified N18.9 ; Hypokalemia E87.6 ; Essential (primary) hypertension I10 ; Fibromyalgia M79.7 ; Coronary artery disease involving [place] coronary artery of [place] heart, angina presence unspecified I25.10 ; Hypothyroid E03.9 and Encounter for immunization Z23 [place] [address] [place] [id number] [place] [address] 36597- 2788 Jan, Hypothyroid E03.9 [place] [address] [place] [id number] [place] [address] 42414- 5616 Jan, [place] [address] [place] [id number] [place] [address] 69236- 9054 Dec, Vitamin D deficiency E55.9 [place] [address] [place] [id number] [place] [address] 54151- 0689 Dec, Primary osteoarthritis of left knee M17.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 [place] [address] [place] [id number] [place] [address] 63619- 3749 19 Dec, 2016 Fibromyalgia M79.7 [place] [address] [place] [id number] [place] [address] 31965- 6548 18 Dec, 2016 Mood disorder F39 [place] [address] [place] [id number] [place] [address] 82109- 0718 13 Dec, 2016 [place] [address] [place] [id number] [place] [address] 99667- 3477 13 Dec, 2016 Generalized anxiety disorder F41.1 and Major depressive disorder, recurrent episode with anxious distress F33.9 [place] [address] [place] [address]- 0300 11 Dec, 2016 [facility] [id number] [place] [address] 88530- 7483 08 Dec, 2016 Streptococcal meningitis G00.2 [facility] [id number] [place] [address] 16470- 0190 07 Dec, 2016 Streptococcal meningitis G00.2 [facility] [id number] [place] [address] 31289- 2985 07 Dec, 2016 [facility] [id number] [place] [address] 70067- 8969 06 Dec, 2016 [facility] [id number] [place] [address] 40091- 4921 06 Dec, 2016 Streptococcal meningitis G00.2 [facility] [id number] [place] [address] 43895- 1217 Dec, 2016 Major depressive disorder, recurrent episode with anxious distress F33.9 [facility] [id number] [place] [address] 46594- 4427 Nov, Fever, unspecified fever cause R50.9 [facility] [id number] [place] [address] 05060- 2430 24 Nov, 2016 [facility] [id number] [place] [address] 07044- 5643 16 Nov, 2016 Hypothyroid E03.9 [facility] [id number] [place] [address] 36329- 4468 Nov, Generalized anxiety disorder F41.1 and Major depressive disorder, recurrent episode with anxious distress F33.9 [facility] [id number] [place] [address] 51034- 9996 Nov, [facility] [address] [id number] Oct, Dental examination Z01.20 [facility] [address] [place] [id number] [place] [address] 20568- 8794 Oct, Generalized anxiety disorder F41.1 and Major depressive disorder, recurrent episode with anxious distress F33.9 [place] [id number] [place] [address] 56845- 6830 Oct, Chronic kidney disease, stage 4 (severe) N18.4 [place] [address] [place] [id number] [place] [address] 61196- 0228 Oct, [place] [address] [place] [id number] [place] [address] 03957- 2032 Oct, Fibromyalgia M79.7 [place] [address] [place] [id number] [place] [address] 88645- 6870 Oct, [place] [address] [place] [id number] [place] [address] 07256- 5733 Oct, Generalized anxiety disorder F41.1 ; Major depressive disorder, recurrent episode with anxious distress F33.9 and Bipolar disorder, current episode manic without psychotic features F31.10 [place] [address] [address]- 5932 Sep, [place] [address] [place] [id number] [place] [address] 75400- 7596 Sep, [place] [id number] [place] [address] 87811- 9875 Sep, Vitamin D deficiency E55.9 [place] [address] [address]- 5659 Sep, Vitamin D deficiency E55.9 [place] [id number] [place] [address] 20568- 2540 Sep, [place] [address] [place] [id number] [place] [address] 82964- 8276 Sep, Chronic kidney disease, stage 4 (severe) N18.4 ; Hypothyroid E03.9 ; Restless leg G25.81 ; Fibromyalgia M79.7 ; Essential ( primary) hypertension I10 ; Vitamin D deficiency E55.9 ; Dyspepsia R10.13 ; Anemia in chronic kidney disease D63.1 ; Chronic kidney disease, unspecified N18.9 ; Coronary artery disease involving [place] coronary artery of [place] heart , angina presence unspecified I25.10 ; Screening breast examination Z12.39 and Low back pain M54.5 [place] [address] [place] [id number] [place] [address] 89728- 4046 August, Generalized anxiety disorder F41.1 and Major depressive disorder, recurrent episode with anxious distress F33.9 [place] [address] [place] [id number] [place] [address] 34716- 3844 August, Generalized anxiety disorder F41.1 and Major depressive disorder, recurrent episode with anxious distress F33.9 [place] [address] [place] [id number] [place] [address] 49246- 5777 August, Fibromyalgia M79.7 [place] [address] 77326- 2245 Jul, Generalized anxiety disorder F41.1 and Major depressive disorder, recurrent episode with anxious distress F33.9 [place] [address] [place] [id number] [place] [address] 84450- 3496 Jul, Fibromyalgia M79.7 [place] [address] [place] [id number] [place] [address] 81277- 9062 Jul, Generalized anxiety disorder F41.1 [place] [address] [place] [id number] [place] [address] 13746- 1640 May, [place] [address] [place] [id number] [place] [address] 70727- 8653 May, Hypothyroid E03.9 [place] [address] [place] [id number] [place] [address] 42375- 2667 May, Chronic kidney disease, stage 4 (severe) N18.4 ; Hypothyroid E03.9 ; Restless leg G25.81 ; Fibromyalgia M79.7 ; Essential ( primary) hypertension I10 ; Vitamin D deficiency E55.9 ; Dyspepsia R10.13 ; Acute non-recurrent maxillary sinusitis J01.00 ; Anemia in chronic kidney disease D63.1 ; Chronic kidney disease, unspecified N18.9 and Coronary artery disease involving [place] coronary artery of [place] heart, angina presence unspecified I25.10 [facility] [address] [place] [id number] [place] [address] 82321- 5222 May, Vitamin D deficiency, unspecified E55.9 [place] [address] [place] [id number] [place] [address] 18609- 7015 May, Generalized anxiety disorder F41.1 and Major depressive disorder, recurrent episode with anxious distress F33.9 [place] [address] [place] [id number] [place] [address] 09411- 0757 Apr, Pain in right knee M25.561 and Pain in left knee M25.562 [place] [address] [place] [id number] [place] [address] 52657- 0507 Apr, [place] [address] [place] [id number] [place] [address] 79884- 0715 Apr, [facility] [id number] [place] [address] 55477- 1197 Apr, [place] [address] [place] [id number] [place] [address] 04651- 7065 Mar, Generalized anxiety disorder F41.1 and Major depressive disorder, recurrent episode with anxious distress F33.9 [place] [id number] [place] [address] 18306- 9117 Mar, Generalized anxiety disorder F41.1 and Major depressive disorder, recurrent episode with anxious distress F33.9 [place] [address] [place] [id number] [place] [address] 65860- 2667 Mar, [facility] [address] [place] [id number] [place] [address] 81754- 4220 Mar, [place] [address] [place] [id number] [place] [address] 21267- 7080 Mar, [place] [address] [place] [id number] [place] [address] 22590- 2410 Mar, Asthma J45.909 and Fibromyalgia M79.7 [place] [address] [place] [id number] [place] [address] 53502 2546 Mar, Chronic kidney disease, stage 4 (severe) N18.4 ; Vitamin D deficiency E55.9 and Essential (primary) hypertension I10 [place] [address] 73315- 2099 Feb, [place] [address] 63368- 5621 Feb, Dysuria R30.0 ; Mixed stress and urge urinary incontinence N39.46 ; Fibromyalgia M79.7 and Chronic kidney disease, stage IV (severe) N18.4 [place] [address] 97030- 5966 Feb, Chronic kidney disease, stage 4 (severe) N18.4 [place] [address] 22960- 7812 Feb, Chronic kidney disease, stage 4 (severe) N18.4 [place] [address] [place] [id number] [place] [address] 71414- 2756 Feb, [place] [address] [place] [id number] [place] [address] 00332- 0880 Feb, Vitamin D deficiency, unspecified E55.9 [place] [address] [place] [id number] [place] [address] 88138 2546 Jan, [place] [address] 05367 2546 Jan, [place] [address] [place] [id number] [place] [address] 92666 2546 Dec, [place] [address] [place] [id number] [place] [address] 88431 254 Dec, Chronic kidney disease, stage 4 (severe) N18.4 [facility] [address] [place] [id number] [place] [address] 18332- 7173 28 Dec, 2015 Dysthymic disorder F34.1 and Generalized anxiety disorder F41.1 [facility] [address] [place] [id number] [place] [address] 08177- 1978 Dec, [facility] [address] [place] [id number] [place] [address] 68151- 1586 Dec, [facility] [address] [place] [id number] [place] [address] 36371- 2784 Dec, Dysthymic disorder F34.1 and Generalized anxiety disorder F41.1 [place] [address] [place] [id number] [place] [address] 46003- 1229 Dec, Dysuria R30.0 ; Chronic kidney disease, stage 4 (severe) N18.4 ; Hypertension I10 ; Dyspepsia R10.13 ; Yeast dermatitis B37.2 ; Palpitations R00.2 ; Hypothyroid E03.9 ; Functional 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 and Other seasonal allergic rhinitis J30.2 [facility] [address] [place] [id number] [place] [address] 00441 -2291 Dec, [facility] [address] [place] [id number] [place] [address] 23803 -9467 Nov, Dysuria R30.0 and Stress incontinence N39.3 [facility] [address] [place] [id number] [place] [address] 84379- 3088 Nov, [facility] [address] [place] [id number] [place] [address] 50699- 1432 Nov, [facility] [address] [place] [id number] [place] [address] 30193- 2781 Nov, Osteoarthritis of knees, bilateral M17.0 [facility] [address] [place] [id number] [place] [address] 94891- 3575 Nov, Dysthymic disorder F34.1 and Generalized anxiety disorder F41.1 [facility] [address], [place] [address]- 9763 Nov, [facility] [address] [place] [id number] [place] [address] 14976- 7203 Nov, [facility] [address] [place] [id number] [place] [address] 56952- 6876 Nov, Urgency of urination R39.15 [facility] [address] [place] [id number] [place] [address] 14690- 0763 Nov, [facility] [address] [place] [id number] [place] [address] 08924- 1402 Nov, Chronic kidney disease, stage 4 (severe) N18.4 [facility] [address] [place] [id number] [place] [address] 61153- 7875 Oct, Hypertension I10 ; Coronary artery disease involving [place] coronary artery of [place] heart, angina presence unspecified I25.10 ; Palpitations R00.2 ; Hypothyroid E03.9 ; Right foot pain M79.671 ; Functional 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 and Other seasonal allergic rhinitis J30.2 [facility] [address] [place] [id number] [place] [address] 98548- 2020 Oct, Dysthymic disorder F34.1 and Generalized anxiety disorder F41.1 [facility] [id number] [place] [address] 65135- 4157 Sep, [facility] [id number] [place] [address] 27309- 6093 Sep, [facility] [address] [place] [id number] [place] [address] 65311- 4519 Sep, [facility] [address] [place] [id number] [place] [address] 98813- 8030 Sep, [facility] [address] [place] [id number] [place] [address] 37883- 3811 Sep, [facility] [address] [place] [address]- 8016 27 Sep, 2015 Dysthymic disorder F34.1 and Generalized anxiety disorder F41.1 [place] [address] 66193- 0791 16 Sep, 2015 Asthma with acute exacerbation in adult J45.901 ; Dysuria R30.0 ; Chronic kidney disease, stage 4 (severe) N18.4 and History of anemia Z86.2 [place] [address] 52734- [address] 2015 Generalized anxiety disorder F41.1 and Dysthymic disorder F34.[address] [address] August, Screening breast examination Z12.39 and Acute recurrent maxillary sinusitis J01.[address] [address] August, Osteoarthritis of knees, bilateral M17.[address] [address] August, Chronic kidney disease, stage 4 (severe) N18.4 ; Acute non- recurrent maxillary sinusitis J01.00 ; Urinary problem R39.89 ; Bowel habit changes R19.4 ; Functional 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 and History of colon polyps Z86.010 [place] [id number] [place] [address] 85032- 2642 Jul, Dysthymic disorder F34.1 and Generalized anxiety disorder F41.1 [place] [id number] [place] [address] 12596- 3350 Jul, [address] 28785- 9494 Jul, Dysthymic disorder F34.1 ; Generalized anxiety disorder F41.1 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.[address] 87518- 2092 Jul, [facility] [id number] [place] [address] 80569- 7403 Jun, [facility] [id number] [place] [address] 43623- 0683 Jun, [facility] [id number] [place] [address] 92481- 8038 May, [facility] [id number] [place] [address] 26417- 9229 May, Dysthymic disorder F34.1 and Generalized anxiety disorder F41.1 [place] [id number] [place] [address] 10457- 0415 Apr, Kidney disease N28.9 [place] [id number] [place] [address] 54920- 0056 Apr, Generalized anxiety disorder F41.1 and Dysthymic disorder F34.1 [place] [id number] [place] [address] 61584- 5073 Apr, Chronic kidney disease, stage 4 (severe) N18.4 [place] [id number] [place] [address] 94802- 4666 Apr, Generalized anxiety disorder F41.1 ; Major depression, recurrent F33.9 and Sleep disturbance G47.9 [place] [id number] [place] [address] 16146- 5390 Mar, Generalized anxiety disorder F41.1 and Dysthymic disorder F34.1 [place] [id number] [place] [address] 78331- 9365 Mar, Generalized anxiety disorder F41.1 ; Dysthymic disorder F34.1 and Insomnia G47.00 [place] [id number] [place] [address] 42749- 2228 Mar, [place] [id number] [place] [address] 36237- 4264 Mar, [facility] [id number] [place] [address] 92301- 4858 Mar, Osteoarthritis of knees, bilateral M17.0 [place] [id number] [place] [address] 58348- 9034 Mar, Hypertension I10 ; Hypothyroid E03.9 ; Dysthymic disorder F34.1 ; Chronic kidney disease, stage 4 (severe) N18.4 and Nausea & vomiting R11.2 [place] [id number] [place] [address] 65149- 1076 Mar, Generalized anxiety disorder F41.1 ; Dysthymic disorder F34.1 and Insomnia G47.00 [place] [id number] [place] [address] 38077- 8101 Mar, Dehydration E86.0 ; Chronic kidney disease, stage 4 (severe ) N18.4 and Nausea & vomiting R11.2 [facility] [id number] [place] [address] 97368 -6051 Mar, Gastroenteritis K52.9 [place] [address] 01414- 4806 Mar, [place] [id number] [place] [address] 60656- 0322 Mar, [place] [id number] [place] [address] 26561- 1399 Feb, Dysthymic disorder F34.1 and Generalized anxiety disorder F41.1 [place] [id number] [place] [address] 27503- 5209 Jan, UTI (urinary tract infection) N39.0 ; Asthma J45.909 ; Coronary artery disease involving [place] coronary artery of [place] heart, angina presence unspecified I25.10 ; Hypertension I10 ; Hypothyroid E03.9 ; Vitamin D deficiency E55.9 ; Insomnia G47.00 ; Palpitations R00.2 ; Depressed F32.9 ; Restless leg G25.81 and Anxiety F41.9 [place] [id number] [place] [address] 64564- 0015 19 Jan, 2015 Dysthymic disorder F34.1 and Generalized anxiety disorder F41.1 [place] [id number] [place] [address] 87361- 9191 Jan, [place] [id number] [place] [address] 81703- 3832 Dec, [place] [id number] [place] [address] 81505- 7690 28 Dec, 2014 Alkalosis 276.3 ; Chronic kidney disease, 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.4 ; Hyperpotassemia 276.7 ; Secondary hyperparathyroidism, renal 588.81 ; Proteinuria 791.0 ; Unspecified vitamin D deficiency 268.9 ; Anemia in chronic kidney disease 285.21 ; Other and unspecified hyperlipidemia 272.4 ; Hypertension, essential, benign 401.1 and Chronic kidney disease (CKD), stage III (moderate) 585.3 [place] [id number] [place] [address] 99730- 7417 Dec, [place] [id number] [place] [address] 49544- 6821 16 Dec, 2014 Depressive disorder, not elsewhere classified 311 and Generalized anxiety disorder 300.02 [place] [id number] [place] [address] 99660- 3370 10 Dec, 2014 [place] [id number] [place] [address] 16847- 5384 08 Dec, 2014 [place] [id number] [place] [address] 93040- 7286 Nov, Depressive disorder, not elsewhere classified 311 and Generalized anxiety disorder 300.02 [place] [id number] [place] [address] 16305- 2873 Nov, Arthritis of both knees 716.96 [place] [id number] [place] [address] 28531- 1433 Nov, PAF (paroxysmal atrial fibrillation) 427.31 ; CAD (coronary artery disease) 414.00 ; Chest pain 786.50 and Chronic kidney disease (CKD) stage G4/A1, severely decreased glomerular filtration rate (GFR) between 15-29 mL/min/1.73 square meter and albuminuria creatinine ratio less than 30 mg/g 585.4 [place] [id number] [place] [address] 86859- 0823 Oct, Coronary atherosclerosis of unspecified type of vessel, [place] or graft 414.00 ; Chronic kidney disease, 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.4 ; Hypertension 401.9 and Edema 782.[address] 76025- 4846 Oct, Depressive disorder, not elsewhere classified 311 and Generalized anxiety disorder 300.[address] 37899- 4792 Oct, Depressive disorder, not elsewhere classified 311 and Generalized anxiety disorder 300.02 [place] [address] 89658- 1695 Oct, [address] 19307- 8832 Oct, [place] [id number] [place] [address] 53700- 0134 Sep, [place] [id number] [place] [address] 46681- 3330 Sep, Chronic kidney disease, 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.4 [place] [id number] [place] [address] 80602- 6406 Sep, [address] 66096- 5805 Sep, Coronary atherosclerosis of unspecified type of vessel, [place] or graft 414.00 ; Hypertension 401.9 ; Edema 782.3 and Hypothyroidism 244.[address] 00125- 9284 Sep, Coronary atherosclerosis of unspecified type of vessel, [place] or graft 414.00 ; Hypertension 401.9 ; Fibromyalgia 729.1 ; Edema 782.3 ; Hypothyroidism 244.9 and Anemia 285.9 [facility] [id number] [place] [address] 73482- 3679 Sep, Anxiety disorder, unspecified 300.00 and Depressive disorder , not elsewhere classified 311 [facility] [address] 70778- 3126 Sep, [facility] [address] 03692- 6918 August, Generalized anxiety disorder 300.02 [facility] [address] 23699- 1574 August, Closed fracture of lateral malleolus 824.2 [facility] [address] 78396- 2604 Jul, [facility] [address] 20310- 9327 Jul, [facility] [id number] [place] [address] 64203- 1440 Jun, [facility] [id number] [place] [address] 39337- 2832 Jun, [facility] [id number] [place] [address] 41438- 4532 Jun, [facility] [id number] [place] [address] 34339- 9324 Jun, [facility] [address] 86281- 9981 Jun, [facility] [id number] [place] [address] 03180- 1506 Jun, [facility] [id number] [place] [address] 85108- 5588 May, [facility] [place] [facility] [address] [id number] [place] [address]- 3014 19 May, 2014 [facility] [place] [facility] [address] [id number] [place] [address]- 3006 18 May, 2014 [facility] [place] [facility] [address] [id number] [place] [address] 2546 18 May, 2014 [facility] [place] [facility] [address] [id number] [place] [address]- 4646 16 May, 2014 [facility] [place] [facility] [address] [id number] [place] [address]- 7832 16 May, 2014 [facility] [place] [facility] [address] [id number] [place] [address]- 8526 13 May, 2014 [facility] [place] [facility] [address] [id number] [place] [address]- 4577 13 May, 2014 [facility] [place] [facility] [address] [id number] [place] [address]- 9495 10 May, 2014 [facility] [place] [facility] [address] [id number] [place] [address]- 2241 10 May, 2014 [facility] [place] [facility] [address] [facility] [id number] [place] [address]- 8884 Apr, [facility] [place] [facility] [address] [id number] [place] [address]- 3209 Apr, [facility] [place] [facility] [address] [id number] [place] [address]- 3272 Mar, [facility] [place] [facility] [address] [id number] [place] [address] 2546 Mar, [facility] [place] [facility] [address] [id number] [place] [address]- 2546 Mar, [facility] [place] [facility] [address] [id number] [place] [address]- 2549 Mar, [facility] [place] [facility] [address] [id number] [place] [address]- 9077 15 Mar, 2014 [facility] [place] [facility] [address] [id number] [place] [address]- 3915 15 Mar, 2014 [facility] [place] [facility] [address] [id number] [place] [address]- 3258 Mar, [facility] [place] [facility] [address] [id number] [place] [address]- 4278 Feb, [facility] [place] [facility] [address] [id number] [place] [address]- 5073 Feb, [facility] [place] [facility] [address] [id number] [place] [address]- 9850 Feb, [facility] [place] [facility] [address] [id number] [place] [address]- 3152 Jan, [facility] [place] [facility] [address] [id number] [place] [address]- 1409 Jan, [facility] [place] [facility] [address] [id number] [place] [address]- 7571 Jan, [facility] [place] [facility] [address] [id number] [place] [address]- 7493 Jan, [facility] [place] [facility] [address] [id number] [place] [address]- 0600 Jan, [facility] [place] [facility] [address] [id number] [place] [address]- 7106 Jan, [facility] [place] [facility] [address] [id number], [place] [address]- 1260 Jan, [facility] [place] [facility] [address] [id number], [place] [address]- 6281 Jan, [facility] [place] [facility] [address] [id number], [place] [address]- 3162 Jan, [facility] [place] [facility] [address] [id number], [place] [address]- 8455 Jan, [facility] [place] [facility] [address] [id number] [place] [address]- 6382 Nov, [facility] [place] [facility] [address] [id number] [place] [address]- 7866 Nov, [facility] [place] [facility] [address] [id number] [place] [address]- 9476 Nov, [facility] [place] [facility] [address] [id number] [place] [address]- 2829 Oct, [facility] [place] [facility] [address] [id number] [place] [address]- 1226 Oct, [facility] [place] [facility] [address] [id number] [place] [address]- 2582 Oct, [facility] [place] [facility] [address] [id number] [place] [address]- 6789 Oct, [facility] [place] [facility] [address] [id number] [place] [address]- 1999 Oct, [facility] [place] [facility] [address] [id number] [place] [address]- 0705 Oct, [facility] [place] [facility] [address] [id number] [place] [address]- 7433 Oct, [facility] [place] [facility] [address] [id number] [place] [address]- 1251 Oct, [facility] [place] [facility] [address] [id number] [place] [address]- 6157 Oct, [facility] [place] [facility] [address] [id number] [place] [address]- 5729 Sep, [facility] [place] [facility] [address] [id number] [place] [address]- 7327 Sep, [facility] [place] [facility] [address] [id number] [place] [address]- 9237 Sep, [facility] [place] [facility] [address] [id number] [place] [address]- 1657 Sep, [facility] [place] [facility] [address] [id number] [place] [address]- 2178 Sep, [facility] [place] [facility] [address] [id number] [place] [address]- 6386 Sep, [facility] [place] [facility] [address] [id number] [place] [address]- 0953 Sep, [facility] [place] [facility] [address] [id number] [place] [address]- 7320 Sep, [facility] [place] [facility] [address] [id number] [place] [address]- 7926 Sep, [facility] [place] [facility] [address] [id number] [place] [address]- 7651 August, [facility] [place] [facility] [address] [id number] [place] [address]- 2982 August, [facility] [place] [facility] [address] [id number] [place] [address]- 4691 August, [facility] [place] [facility] [address] [id number] [place] [address]- 7311 August, [facility] [place] [facility] [address] [id number] [place] [address]- 2130 August, [facility] [place] [facility] [address] [id number], [place] [address]- 9402 August, [facility] [place] [facility] [address] [id number], [place] [address]- 8795 Jul, [facility] [place] [facility] [address] [id number] [place] [address]- 9133 Jul, [facility] [place] [facility] [address] [id number] [place] [address]- 8098 Jul, [facility] [place] [facility] [address] [id number] [place] [address]- 4059 Jul, [facility] [place] [facility] [address] [id number] [place] [address]- 0641 07 Jul, 2013 [facility] [place] [facility] [address] [id number] [place] [address]- 1026 Jul, [facility] [place] [facility] [address] [id number] [place] [address]- 8356 Jun, [facility] [place] [facility] [address] [id number] [place] [address]- 9556 Jun, [facility] [place] [facility] [address] [id number] [place] [address]- 0533 May, [facility] [place] [facility] [address] [id number] [place] [address]- 5446 May, [facility] [place] [facility] [address] [id number] [place] [address]- 8026 May, [facility] [place] [facility] [address] [facility] [id number] [place] [address]- 3886 May, [facility] [place] [facility] [address] [id number] [place] [address]- 4629 Apr, [facility] [place] [facility] [address] [id number] [place] [address]- 2764 Apr, [facility] [place] [facility] [address] [facility] [id number] [place] [address]- 0691 Mar, [facility] [place] [facility] [address] [id number] [place] [address]- 3200 18 Mar, 2013 [facility] [place] [facility] [address] [id number] [place] [address] 2545 17 Mar, 2013 [facility] [place] [facility] [address] [id number] [place] [address]- 1676 Mar, [facility] [place] [facility] [address] [facility] [id number] [place] [address]- 7686 05 Mar, 2013 [facility] [place] [facility] [address] [facility] [id number] [place] [address]- 1667 Mar, [facility] [place] [facility] [address] [id number] [place] [address]- 2404 Feb, [facility] [place] [facility] [address] [id number] [place] [address]- 0577 Feb, [facility] [place] [facility] [address] [id number] [place] [address]- 2244 Feb, [facility] [place] [facility] [address] [id number] [place] [address]- 1473 Feb, [facility] [place] [facility] [address] [id number] [place] [address]- 9444 Feb, [facility] [place] [facility] [address] [id number] [place] [address]- 8000 Feb, [facility] [place] [facility] [address] [id number] [place] [address]- 9346 Jan, [facility] [place] [facility] [address] [id number] [place] [address]- 9066 Jan, [facility] [place] [facility] [address] [id number] [place] [address]- 8691 Jan, [facility] [place] [facility] [address] [id number] [place] [address]- 2614 Jan, [facility] [place] [facility] [address] [id number] [place] [address]- 8782 Jan, [facility] [place] [facility] [address] [id number], [place] [address]- 1670 Jan, [facility] [place] [facility] [address] [id number] [place] [address]- 3682 12 Dec, 2012 [facility] [place] [facility] [address] [id number] [place] [address]- 6691 09 Dec, 2012 [facility] [place] [facility] [address] [id number] [place] [address]- 4474 16 Nov, 2012 [facility] [place] [facility] [address] [id number] [place] [address]- 7431 Nov, [facility] [address] [id number] [place] [address]- 3909 Oct, [facility] [place] [facility] [address] [id number] [place] [address]- 6382 Oct, [facility] [address] [id number] [place] [address]- 5981 Oct, [facility] [address] [id number] [place] [address]- 9751 Oct, [facility] [address] [id number] [place] [address]- 1883 Oct, [facility] [address] [id number] [place] [address]- 3660 Oct, [facility] [address] [id number] [place] [address]- 1916 Sep, [facility] [address] [id number] [place] [address]- 0669 Sep, [facility] [address] [id number] [place] [address]- 4507 Sep, [facility] [address] [id number] [place] [address]- 6438 Sep, [facility] [address] [id number] [place] [address]- 0248 August, [facility] [place] [facility] [address] [id number] [place] [address]- 8850 August, [facility] [place] [facility] [address] [id number] [place] [address]- 6149 August, [facility] [place] [facility] [address] [id number] [place] [address]- 0049 August, [facility] [place] [facility] [address] [id number] [place] [address]- 3864 August, [facility] [address] [id number] [place] [address]- 7334 Jul, [facility] [address] [id number] [place] [address]- 9032 Jul, [facility] [address] [id number] [place] [address]- 6448 Jul, [facility] [address] [id number] [place] [address]- 4636 Jul, [facility] [address] [id number] [place] [address]- 6191 Jul, [facility] [address] [id number] [place] [address]- 8249 Jul, [facility] [address] [id number] [place] 7439 Jul, [facility] [address] [id number] [place] [address]- 7005 Jul, [facility] [address] [id number] [place] [address]- 7571 Jul, [facility] [address] [id number] [place] [address]- 4115 Jul, [facility] [address] [id number] [id number] Jun, [facility] [address] [id number] [place] [address]- 0556 Jun, [facility] [address] [id number] [place] [address]- 5352 Jun, [facility] [place] [facility] [address] [id number] [place] [address]- 0591 Jun, [facility] [place] [facility] [address] [id number] [place] [address] Jun, [facility] [address] [id number] [place] [address] May, [facility] [address] [id number] [place] [address] May, [facility] [place] [facility] [address] [id number] [place] [address] May, [facility] [address] [id number] [place] [address] Apr, [facility] [place] [facility] [address] [id number] [place] [address] Apr, [facility] [address] [id number] [place] [address] Apr, [facility] [place] [facility] [address] [id number] [place] [address] Apr, [facility] [address] [facility] [id number] [place] [address] Apr, [facility] [address] [id number] [place] [address] Apr, [facility] [address] [id number] [place] [address] Mar, [facility] [place] [facility] [address] [id number] [place] [address] Mar, [facility] [place] [facility] [address] [id number], [place] [address] Mar, [facility] [place] [facility] [address] [id number], [place] [address] Mar, [facility] [place] [facility] [address] [id number] [place] [address] Feb, [facility] [place] [facility] [address] [id number] [place] [address] Feb, [facility] [place] [facility] [address] [facility] [id number] [place] [address] Feb, [facility] [place] [facility] [address] [id number] [place] [address] Feb, [facility] [place] [facility] [address] [id number] [place] [address] Feb, [facility] [place] [facility] [address] [id number] [place] [address] Feb, [facility] [place] [facility] [address] [id number] [place] [address] Feb, [facility] [place] [facility] [address] [id number] [place] [address] Feb, [facility] [place] [facility] [address] [id number] [place] [address] Feb, [facility] [place] [facility] [address] [id number] [place] [address]- [address] Feb, [facility] [place] [facility] [address] [id number] [place] [address] Feb, [facility] [place] [facility] [address] [id number] [place] [address]- [address] Feb, [facility] [place] [facility] [address] [id number] [place] [address] Feb, [facility] [place] [facility] [address] [facility] [id number] [place] [address] Feb, [facility] [place] [facility] [address] [id number] [place] [address]- [address] Feb, [facility] [place] [facility] [address] [id number], [place] [address] Feb, [facility] [place] [facility] [address] [id number] [place] [address] Jan, [facility] [place] [facility] [address] [id number] [place] [address]- [address] Jan, [facility] [place] [facility] [address] [id number], [place] [address] Jan, [facility] [place] [facility] [address] [id number] [place] [address]- [address] 31 Jan, 2012 [facility] [place] [facility] [address] [id number] [place] [address]- [address] 30 Jan, 2012 [facility] [place] [facility] [address] [id number] [place] [address] Jan, [facility] [place] [facility] [address] [id number] [place] [address]- [address] 25 Jan, 2012 [facility] [place] [facility] [address] [id number] [place] [address]- [address] 16 Jan, 2012 [facility] [place] [facility] [address] [id number] [place] [address] 16 Jan, 2012 [facility] [place] [facility] [address] [id number] [place] [address]- [address] 15 Jan, 2012 [facility] [place] [facility] [address] [id number] [place] [address] 15 Jan, 2012 [facility] [place] [facility] [address] [id number] [place] [address] Jan, [facility] [place] [facility] [address] [id number] [place] [address] 26 Dec, 2011 [facility] [place] [facility] [address] [id number] [place] [address]- [address] 26 Sep2011 [facility] [place] [facility] [address] [id number] [place] [address]- 3647 24 Sep2011 [facility] [place] [facility] [address] [id number] [place] [address]- 8796 23 Sep2011 [facility] [place] [facility] [address] [id number] [place] [address]- 254 22 Sep2011 [facility] [place] [facility] [address] [id number] [place] [address]- [address]83 21 Sep2011 [facility] [place] [facility] [address] [id number] [place] [address]- [address] 20 Dec, 2011 [facility] [place] [facility] [address] [id number] [place] [address] 20 Dec, 2011 [facility] [place] [facility] [address] [id number] [place] [address] 07 Dec, 2011 [facility] [place] [facility] [address] [id number] [place] [address] 06 Dec, 2011 [facility] [place] [facility] [address] [id number] [place] [address] 06 Dec, 2011 [facility] [place] [facility] [address] [id number] [place] [address] 05 Dec, 2011 [facility] [place] [facility] [address] [id number] [place] [address] 23 Nov, 2011 [facility] [place] [facility] [address] [id number] [place] [address] 17 Nov, 2011 [facility] [place] [facility] [address] [id number] [place] [address] 13 Nov, 2011 [facility] [place] [facility] [address] [id number] [place] [address] Nov, [facility] [place] [facility] [address] [id number] [place] [address] Nov, [facility] [place] [facility] [address] [id number] [place] [address] Nov, [facility] [place] [facility] [address] [id number] [place] [address] Nov, [facility] [place] [facility] [address] [id number] [place] [address] Nov, [facility] [place] [facility] [address] [id number] [place] [address] Oct, [facility] [place] [facility] [address] [id number] [place] [address] Oct, [facility] [place] [facility] [address] [id number] [place] [address] Oct, [facility] [address] [id number] [place] [address] Oct, [facility] [address] [id number] [place] [address] Oct, [facility] [address] [id number] [place] [address] 0263 Oct, [facility] [address] [id number] [place] [address] Oct, [facility] [address] [id number] [place] [address] Sep, [facility] [address] [id number] [place] [address] 56[address] Sep, [facility] [address] [id number] [place] [address] August, [facility] [address] [id number] [place] [address] August, [facility] [address] [id number] [place] [address]199 August, [facility] [address] [id number] [place] [address] August, [facility] [address] [id number] [place] [address]47 Jul, [facility] [address] [id number] [place] [address]094 Jul, [facility] [place] [facility] [address] [id number] [place] [address] Jul, [facility] [place] [facility] [address] [id number] [place] [address] Jul, [facility] [address] [id number] [place] [address] 47[address] Jul, [facility] [address] [id number] [place] [address]- 57[address] Jul, [facility] [place] [facility] [address] [id number] [place] [address]- [address] Jul, [facility] [place] [facility] [address] [id number] [place] [address]366 Jul, [facility] [place] [facility] [address] [id number] [place] [address] 4066 Jul, [facility] [place] [facility] [address] [id number] [place] [address] Jun, [facility] [place] [facility] [address] [id number] [place] [address]26 Jun, [facility] [place] [facility] [address] [id number] [place] [address]- [address]26 15 Jun, 2011 [facility] [place] [facility] [address] [id number] [place] [address]- [address]892 14 Jun, 2011 [facility] [place] [facility] [address] [id number] [place] [address]- 1816 Jun, [facility] [place] [facility] [address] [id number] [place] [address] 1298 Jun, [facility] [place] [facility] [address] [id number] [place] [address]- 3926 Jun, [facility] [place] [facility] [address] [id number], [place] [address] May, [facility] [place] [facility] [address] [id number] [place] [address]- 1075 24 May, 2011 [facility] [place] [facility] [address] [id number] [place] [address]- 0776 May, [facility] [place] [facility] [address] [id number] [place] [address]- 7626 May, [facility] [place] [facility] [address] [id number] [place] [address]- [address]486 03 May, 2011 [facility] [address] [id number] [place] [address]- 6926 Apr, [facility] [place] [facility] [address] [id number] [place] [address]- 0636 Apr, [facility] [address] [id number] [place] [address]- 4396 Apr, [facility] [place] [facility] [address] [id number] [place] [address]- [address]117 Apr, [facility] [address] [id number] [place] [address]- 9916 Apr, [facility] [place] [facility] [address] [id number] [place] [address]- [address]21 Mar, [facility] [address] [id number] [place] [address]- 6077 Mar, [facility] [place] [facility] [address] [id number] [place] [address]- 3959 Mar, [facility] [place] [facility] [address] [id number] [place] [address]- 5765 Mar, [facility] [place] [facility] [address] [facility] [id number] [place] [address]- 64[address] Mar, [facility] [place] [facility] [address] [id number] [place] [address]- 4556 Mar, [facility] [place] [facility] [address] [id number] [place] [address] 2546 Mar, [facility] [place] [facility] [address] [id number] [place] [address] 4331 Feb, [facility] [place] [facility] [address] [id number] [place] [address] 0106 Feb, [facility] [place] [facility] [address] [id number] [place] [address]- 7381 Feb, [facility] [place] [facility] [address] [id number] [place] [address]- 8258 Feb, [facility] [place] [facility] [address] [id number] [place] [address]- 3772 Jan, [facility] [place] [facility] [address] [id number] [place] [address]- 4862 Jan, [facility] [place] [facility] [address] [id number] [place] [address]- 6223 Jan, [facility] [place] [facility] [address] [id number] [place] [address]- 9859 Jan, [facility] [place] [facility] [address] [id number] [place] [address]- 0702 Nov, [facility] [place] [facility] [address] [id number] [place] [address]- 6312 Mar, [facility] [place] [facility] [address] [id number] [place] [address]- 9921 Mar, [facility] [place] [facility] [address] [id number] [place] [address]- 3461 Mar, [facility] [place] [facility] [address] [id number] [place] [address]- 3685 Mar, [facility] [place] [facility] [address] [id number] [place] [address]- 0541 Mar, [facility] [place] [facility] [address] [id number] [place] [address] Mar, [facility] [place] [facility] [address] [id number] [place] [address]- 9707 Feb, [facility] [place] [facility] [address] [id number] [place] [address]- 1183 Feb, [facility] [place] [facility] [address] [id number] [place] [address]- 9520 Jan, [facility] [place] [facility] [address] [id number] [place] [address]- 79[address] Jan, [facility] [address] [facility] [id number] [place] [address] Jan, IMMUNIZATIONS No Known Immunizations SOCIAL HISTORY Never Assessed REASON FOR VISIT Lab Approval PLAN OF CARE VITAL SIGNS MEDICATIONS Unknown [...] History Bladder surgery [facility] 03/2016 Hospitalization History Surgeries Only Hospitalization History 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
--- OUTSIDE RECORDS SUMMARY | 2018-05-29 08:00 | XMS REPORT ---
Author Author ISABEL MAE [facility] Address [address] [place] [address] Care Team Providers Care Subsystems Engineer Name Role Phone ISABEL MAE Unavailable PROBLEMS Type Condition ICD9-CM Code YHO11-KT Code Onset Dates Condition Status SNOMED Code Problem Abnormal chest CT R93.8 Active 259542713 Problem Long-term use of high-risk medication Z79.899 Active 033312076 Problem Low back pain M54.5 Active 508131711 Problem Generalized anxiety disorder F41.1 Active 34383678 Problem Dysthymic disorder F34.1 Active 41880629 Problem Coronary artery disease involving nenana coronary artery of nenana heart, angina presence unspecified I25.10 Active 2493438027162 Problem Mixed stress and urge urinary incontinence N39.46 Active 662206205 Problem Depressed F32.9 Active 17487085 Problem Fibromyalgia M79.7 Active 571431892 Problem Hypothyroid E03.9 Active 94402137 Problem Essential (primary) hypertension I10 Active 44325532 Problem Chronic kidney disease, unspecified N18.9 Active 294903278 Problem Vitamin D deficiency E55.9 Active 32062176 Problem Stage 3 chronic kidney disease N18.3 Active 784841002 Problem Mood disorder F39 Active 52719344 Problem Palpitations R00.2 Active 03311004 Problem Asthma J45.909 Active 702479733 Problem Insomnia G47.00 Active 527528213 Problem Bipolar disorder, current episode manic without psychotic features F31.10 Active 374361941 Problem Anemia in chronic kidney disease D63.1 Active 047503793321590 Problem Degenerative tear of medial meniscus of left knee M23.204 Active 987506290 Problem Primary osteoarthritis of left knee M17.12 Active 157554815 Problem Functional 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 Active 46115477 Problem History of colon polyps Z86.010 Active 860926528 Problem Restless leg G25.81 Active 16714853 Problem Chronic kidney disease, stage 4 (severe) N18.4 Active 602068115 Problem Other seasonal allergic rhinitis J30.2 Active 483557278 Problem Hypokalemia E87.6 Active 32440601 Problem Asthma with acute exacerbation in adult J45.901 Active 131750109 Problem History of anemia Z86.2 Active 401226782 ALLERGIES No Information ENCOUNTERS Encounter Location Date Diagnosis [facility] [id number] [place] [address]49 -[address]89 Jun, Orthostatic hypotension I95.1 ; Dysuria R30.0 and Acute cystitis without hematuria N30.00 [facility] [address] [address]- [address] Jun, [facility] [address] [address]99- 4973 Jun, Chronic kidney disease, stage 4 (severe) N18.4 [facility] [address] 30148- 0397 Jun, Fibromyalgia M79.7 [facility] [address] 39[address]- 3047 Jun, [facility] [address] 21372- 5407 Jun, [facility] [id number] [place] [address] 90750- [address] May, [address] R93.8 and Stage 3 chronic kidney disease N18.3 [facility] [id number] [place] [address] 85224- 7847 May, Chronic kidney disease, stage 4 (severe) N18.4 [facility] [id number] [place] [address] 81760- 5727 May, Chronic kidney disease, stage 4 (severe) N18.4 [place] [id number] [place] [address] 69237- 1772 May, [address] R93.8 [place] [address] [facility] [id number] [address]116 May, [facility] [address] [facility] [id number], [place] [address] 6168 May, [facility] [address] [facility] [id number], [place] [address] 7936 May, Generalized anxiety disorder F41.1 and Major depressive disorder, recurrent episode with anxious distress F33.9 [facility] [address] [address] 6633 May, Mood disorder F39 [facility] [address], [place] [address] 1624 Apr, [facility] [address], [place] [address] 8402 Apr, Infected skin lesion L08.9 and Muscle strain of right shoulder region, initial encounter S46.911A [facility] [address] [address] 5709 Apr, Generalized anxiety disorder F41.1 and Major depressive disorder, recurrent episode with anxious distress F33.9 [facility] [address], [place] [address] 2520 Apr, [facility] [address], [place] [address] 3884 Apr, Recent urinary tract infection Z87.440 and Hypothyroid E03.9 [facility] [id number], [place] [address] 7368 Apr, Generalized anxiety disorder F41.1 and Major depressive disorder, recurrent episode with anxious distress F33.9 [facility] [id number], [place] [address] 4819 Apr, Recent urinary tract infection Z87.440 [facility] [id number], [place] [address] 1477 Mar, [facility] [address], [place] [address] Mar, Dysuria R30.0 ; Acute cystitis without hematuria N30.00 and BMI 40.0-44.9, adult Z68.41 [facility] [address] [address] 3005 14 Mar, 2017 [facility] [id number] [place] [address] 18683- 6804 Mar, [facility] [id number] [place] [address] 28711- 4932 Mar, Generalized anxiety disorder F41.1 and Major depressive disorder, recurrent episode with anxious distress F33.9 [place] [id number] [place] [address] 53858- 4723 Feb, Conjunctivitis, bacterial H10.9 [place] [id number] [place] [address] 75185- 4997 Feb, [facility] [id number] [place] [address] 16724 -5674 Feb, Conjunctivitis, bacterial H10.9 [place] [address] [place] [address] 65250- 9964 Feb, [facility] [address] [address] Feb, Dysuria R30.0 ; Acute cystitis N30.00 and BMI 40.0-44.9, adult Z68.41 [place] [address] [place] [address] 33772- 0250 Feb, [place] [id number] [place] [address] 77749- 4723 Feb, Generalized anxiety disorder F41.1 and Major depressive disorder, recurrent episode with anxious distress F33.9 [place] [address] [place] [address] 55989- 0735 Feb, Mood disorder F39 and BMI 40.0-44.9, adult Z68.41 [facility] [id number] [place] [address] 59246- 5176 Jan, [facility] [id number] [place] [address] 46937- 9526 Jan, [facility] [id number] [place] [address] 98004- 0014 Jan, Hypothyroid E03.9 [facility] [id number] [place] [address] 55438- 7430 Jan, [place] [id number] [place] [address] 00367- 0640 Jan, Chronic kidney disease, unspecified N18.9 ; Hypokalemia E87.6 ; Essential (primary) hypertension I10 ; Fibromyalgia M79.7 ; Coronary artery disease involving nenana coronary artery of nenana heart, angina presence unspecified I25.10 ; Hypothyroid E03.9 and Encounter for immunization Z23 [facility] [id number] [place] [address] 13484- 4442 Jan, Hypothyroid E03.9 [place] [id number] [place] [address] 01457- 4803 Jan, [facility] [id number] [place] [address] 66160- 1941 Dec, Vitamin D deficiency E55.9 [facility] [id number] [place] [address] 10970- 5734 Dec, Primary osteoarthritis of left knee M17.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 [facility] [id number] [place] [address] 35552- 6906 Dec, Fibromyalgia M79.7 [facility] [id number] [place] [address] 05933- 2561 Dec, Mood disorder F39 [facility] [address] [place] [address] 8292 13 Dec, 2016 [facility] [address] [facility] [id number], [place] [address]- 0707 13 Dec, 2016 Generalized anxiety disorder F41.1 and Major depressive disorder, recurrent episode with anxious distress F33.9 [facility] [address], [place] [address]- 0186 11 Dec, 2016 [facility] [address], [place] [address]- 7265 08 Dec, 2016 Streptococcal meningitis G00.2 [facility] [address], [place] [address]- 9691 07 Dec, 2016 Streptococcal meningitis G00.2 [facility] [address], [place] [address]- 3247 07 Dec, 2016 [facility] [id number] [place] [address] 97581- 4077 06 Dec, 2016 Streptococcal meningitis G00.2 [facility] [address], [place] [address]- 0453 06 Dec, 2016 [facility] [address], [place] [address]- 4268 06 Dec, 2016 Major depressive disorder, recurrent episode with anxious distress F33.9 [facility] [address], [place] [address]- 3524 Nov, Fever, unspecified fever cause R50.9 [facility] [id number], [place] [address]- 2109 24 Nov, 2016 [facility] [id number] [place] [address] 11879- 5633 16 Nov, 2016 Hypothyroid E03.9 [facility] [id number], [place] [address]- 9058 10 Nov, 2016 Generalized anxiety disorder F41.1 and Major depressive disorder, recurrent episode with anxious distress F33.9 [facility] [address], [place] [address]- 5811 Nov, [facility] [address] [address] Oct, Dental examination Z01.20 [facility] [address] [place] [address] 42719- 3833 Oct, Generalized anxiety disorder F41.1 and Major depressive disorder, recurrent episode with anxious distress F33.9 [facility] [id number] [place] [address] 65060- 2056 Oct, Chronic kidney disease, stage 4 (severe) N18.4 [facility] [id number] [place] [address] 56382- 5873 Oct, [place] [id number] [place] [address] 35520- 8372 Oct, Fibromyalgia M79.7 [facility] [id number] [place] [address] 07161- 3928 Oct, [facility] [id number] [place] [address] 08363- 6529 Oct, Generalized anxiety disorder F41.1 ; Major depressive disorder, recurrent episode with anxious distress F33.9 and Bipolar disorder, current episode manic without psychotic features F31.10 [facility] [address], [place] [address]- 9408 Sep, [facility] [id number] [place] [address] 90038- 4827 Sep, [facility] [address] [place] [address] 60293- 9738 Sep, Vitamin D deficiency E55.9 [facility] [address], [place] [address]- 2540 14 Sep, 2016 Vitamin D deficiency E55.9 [facility] [address] [place] [address] 82866- 9108 Sep, [place] [address] [place] [address] 62505- 3368 Sep, Chronic kidney disease, stage 4 (severe) N18.4 ; Hypothyroid E03.9 ; Restless leg G25.81 ; Fibromyalgia M79.7 ; Essential ( primary) hypertension I10 ; Vitamin D deficiency E55.9 ; Dyspepsia R10.13 ; Anemia in chronic kidney disease D63.1 ; Chronic kidney disease, unspecified N18.9 ; Coronary artery disease involving nenana coronary artery of nenana heart , angina presence unspecified I25.10 ; Screening breast examination Z12.39 and Low back pain M54.5 [place] [id number] [place] [address] 42339- 1743 August, Generalized anxiety disorder F41.1 and Major depressive disorder, recurrent episode with anxious distress F33.9 [place] [id number] [place] [address] 26529- 8547 August, Generalized anxiety disorder F41.1 and Major depressive disorder, recurrent episode with anxious distress F33.9 [place] [id number] [place] [address] 36058- 4261 August, Fibromyalgia M79.7 [place] [id number] [place] [address] 64674- 3861 Jul, Generalized anxiety disorder F41.1 and Major depressive disorder, recurrent episode with anxious distress F33.9 [place] [id number] [place] [address] 01985- 4357 Jul, Fibromyalgia M79.7 [place] [id number] [place] [address] 49688- 3093 Jul, Generalized anxiety disorder F41.1 [place] [id number] [place] [address] 03599- 5745 May, [place] [id number] [place] [address] 53989- 2271 May, Hypothyroid E03.9 [place] [address], [place] [address]- 0243 08 May, 2016 Chronic kidney disease, stage 4 (severe) N18.4 ; Hypothyroid E03.9 ; Restless leg G25.81 ; Fibromyalgia M79.7 ; Essential ( primary) hypertension I10 ; Vitamin D deficiency E55.9 ; Dyspepsia R10.13 ; Acute non-recurrent maxillary sinusitis J01.00 ; Anemia in chronic kidney disease D63.1 ; Chronic kidney disease, unspecified N18.9 and Coronary artery disease involving nenana coronary artery of nenana heart, angina presence unspecified I25.10 [place] [id number] [place] [address] 79995- 5817 May, Vitamin D deficiency, unspecified E55.9 [place] [facility] [address] [address]- 1260 May, Generalized anxiety disorder F41.1 and Major depressive disorder, recurrent episode with anxious distress F33.9 [place] [id number] [place] [address] 65999- 9576 Apr, Pain in right knee M25.561 and Pain in left knee M25.562 [place] [id number] [place] [address] 36421- 7287 Apr, [place] [id number] [place] [address] 68027- 4818 Apr, [place] [address] [place] [address] 00062- 0865 Apr, [place] [id number] [place] [address] 06542- 6417 Mar, Generalized anxiety disorder F41.1 and Major depressive disorder, recurrent episode with anxious distress F33.9 [place] [address] [place] [address] 43818- 9085 Mar, Generalized anxiety disorder F41.1 and Major depressive disorder, recurrent episode with anxious distress F33.9 [place] [id number] [place] [address] 55168- 9135 Mar, [facility] [id number] [place] [address] 33960- 2921 Mar, [facility] [id number] [place] [address] 26004- 0015 Mar, [facility] [address] 99462- 8915 Mar, Asthma J45.909 and Fibromyalgia M79.7 [place] [id number] [place] [address] 92328- 3787 Mar, Chronic kidney disease, stage 4 (severe) N18.4 ; Vitamin D deficiency E55.9 and Essential (primary) hypertension I10 [place] [id number] [place] [address] 70356- 1679 Feb, [place] [address] 23958- 2838 Feb, Dysuria R30.0 ; Mixed stress and urge urinary incontinence N39.46 ; Fibromyalgia M79.7 and Chronic kidney disease, stage IV (severe) N18.4 [place] [id number] [place] [address] 01023- 7652 Feb, Chronic kidney disease, stage 4 (severe) N18.4 [place] [id number] [place] [address] 88609- 9237 Feb, Chronic kidney disease, stage 4 (severe) N18.4 [place] [id number] [place] [address] 43131- 4379 Feb, [place] [id number] [place] [address] 63905- 1605 Feb, Vitamin D deficiency, unspecified E55.9 [place] [id number] [place] [address] 13913- 3088 Jan, [place] [address] [place] [address]- 9294 Jan, [facility] [address] [place] [address] 30834- 3438 Dec, [facility] [id number] [place] [address] 24044- 4141 Dec, Chronic kidney disease, stage 4 (severe) N18.4 [facility] [id number] [place] [address] 50447- 1833 Dec, Dysthymic disorder F34.1 and Generalized anxiety disorder F41.1 [facility] [id number] [place] [address] 29795- 1343 Dec, [facility] [id number] [place] [address] 00787- 6337 Dec, [facility] [id number] [place] [address] 18947- 9472 Dec, Dysthymic disorder F34.1 and Generalized anxiety disorder F41.1 [facility] [address] [place] [address] 55467- 6294 Dec, Dysuria R30.0 ; Chronic kidney disease, stage 4 (severe) N18.4 ; Hypertension I10 ; Dyspepsia R10.13 ; Yeast dermatitis B37.2 ; Palpitations R00.2 ; Hypothyroid E03.9 ; Functional 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 and Other seasonal allergic rhinitis J30.2 [facility] [address] [place] [address] 33741 -0869 Dec, [facility] [address] [place] [address] 32663 -3472 Nov, Dysuria R30.0 and Stress incontinence N39.3 [facility] [address] [place] [address] 14414- 4487 Nov, [facility] [id number] [place] [address] 40907- 4348 Nov, [place] [id number] [place] [address] 84329- 0246 Nov, Osteoarthritis of knees, bilateral M17.0 [place] [address] 59458- 2586 Nov, Dysthymic disorder F34.1 and Generalized anxiety disorder F41.1 [place] [address] 99870- 8739 Nov, [place] [address] 49802- 9418 Nov, [place] [address] 82782- 2998 Nov, Urgency of urination R39.15 [place] [address] 95315- 3536 Nov, [place] [address] 02459- 9124 Nov, Chronic kidney disease, stage 4 (severe) N18.[address] 13754- 5132 Oct, Hypertension I10 ; Coronary artery disease involving nenana coronary artery of nenana heart, angina presence unspecified I25.10 ; Palpitations R00.2 ; Hypothyroid E03.9 ; Right foot pain M79.671 ; Functional 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 and Other seasonal allergic rhinitis J30.2 [place] [id number] [place] [address] 69355- 9137 Oct, Dysthymic disorder F34.1 and Generalized anxiety disorder F41.1 [place] [address] 77556- 7683 Sep, [place] [id number] [place] [address] 80712- 3190 Sep, [place] [address] 73474- 9118 Sep, [place] [address] [place] [address] 00919- 7878 Sep, [place] [id number] [place] [address] 35266- 7924 Sep, [place] [id number] [place] [address] 71116- 8026 Sep, Dysthymic disorder F34.1 and Generalized anxiety disorder F41.1 [place] [id number] [place] [address] 91778- 6164 16 Sep, 2015 Asthma with acute exacerbation in adult J45.901 ; Dysuria R30.0 ; Chronic kidney disease, stage 4 (severe) N18.4 and History of anemia Z86.2 [place] [id number] [place] [address] 07031- 8338 2015 Generalized anxiety disorder F41.1 and Dysthymic disorder F34.1 [place] [id number] [place] [address] 22574- 8224 August, Screening breast examination Z12.39 and Acute recurrent maxillary sinusitis J01.01 [place] [id number] [place] [address] 96127- 4629 August, Osteoarthritis of knees, bilateral M17.0 [place] [id number] [place] [address] 93062- 7505 August, Chronic kidney disease, stage 4 (severe) N18.4 ; Acute non- recurrent maxillary sinusitis J01.00 ; Urinary problem R39.89 ; Bowel habit changes R19.4 ; Functional 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 and History of colon polyps Z86.010 [place] [address] [place] [address] 90058- 3051 Jul, Dysthymic disorder F34.1 and Generalized anxiety disorder F41.1 [place] [address] [place] [address] 43162- 9970 Jul, [facility] [address] [address]- 9845 Jul, Dysthymic disorder F34.1 ; Generalized anxiety disorder F41.1 and residential use of drug Z79.899 [facility] [id number] [address] Jul, [facility] [address] [id number] [place] [address] 97152- 9448 Jun, [facility] [id number] [place] [address] 03832- 6837 Jun, [place] [address] [id number] [place] [address] 98971- 7[address] May, [place] [address] [place] [id number] [place] [address] 69808- 8803 May, Dysthymic disorder F34.1 and Generalized anxiety disorder F41.1 [place] [id number] [place] [address] 67140- 6722 Apr, Kidney disease N28.9 [place] [address] [place] [id number] [place] [address] 58395- 7871 Apr, Generalized anxiety disorder F41.1 and Dysthymic disorder F34.1 [place] [id number] [address] Apr, Chronic kidney disease, stage 4 (severe) N18.4 [place] [address] [address] Apr, Generalized anxiety disorder F41.1 ; Major depression, recurrent F33.9 and Sleep disturbance G47.9 [place] [id number] [place] [address] 05705- 9149 Mar, Generalized anxiety disorder F41.1 and Dysthymic disorder F34.1 [place] [id number] [place] [address] 90383- 2900 Mar, Generalized anxiety disorder F41.1 ; Dysthymic disorder F34.1 and Insomnia G47.00 [facility] [id number] [place] [address] 29378- 4559 Mar, [facility] [id number] [place] [address] 86251- 2980 Mar, [facility] [address] [id number] [place] [address] 82784- 5277 Mar, Osteoarthritis of knees, bilateral M17.0 [facility] [id number] [place] [address] 86737- 3764 Mar, Hypertension I10 ; Hypothyroid E03.9 ; Dysthymic disorder F34.1 ; Chronic kidney disease, stage 4 (severe) N18.4 and Nausea & vomiting R11.2 [place] [id number] [place] [address] 30329- 6905 Mar, Generalized anxiety disorder F41.1 ; Dysthymic disorder F34.1 and Insomnia G47.00 [facility] [id number] [place] [address] 65466- 2845 Mar, Dehydration E86.0 ; Chronic kidney disease, stage 4 (severe ) N18.4 and Nausea & vomiting R11.2 [facility] [id number] [place] [address] 63646 -8321 Mar, Gastroenteritis K52.9 [facility] [id number] [place] [address] 39650- 6153 Mar, [facility] [id number] [place] [address] 35560- 8593 Mar, [facility] [id number] [place] [address] 43011- 7394 Feb, Dysthymic disorder F34.1 and Generalized anxiety disorder F41.1 [facility] [id number] [place] [address] 99162- 0552 Jan, UTI (urinary tract infection) N39.0 ; Asthma J45.909 ; Coronary artery disease involving nenana coronary artery of nenana heart, angina presence unspecified I25.10 ; Hypertension I10 ; Hypothyroid E03.9 ; Vitamin D deficiency E55.9 ; Insomnia G47.00 ; Palpitations R00.2 ; Depressed F32.9 ; Restless leg G25.81 and Anxiety F41.[address] 9[address]94- 3213 Jan, Dysthymic disorder F34.1 and Generalized anxiety disorder F41.[address] 02819- 4111 Jan, [address] 98086- 6245 Dec, [address] 51318- 3120 Dec, Alkalosis 276.3 ; Chronic kidney disease, 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.4 ; Hyperpotassemia 276.7 ; Secondary hyperparathyroidism, renal 588.81 ; Proteinuria 791.0 ; Unspecified vitamin D deficiency 268.9 ; Anemia in chronic kidney disease 285.21 ; Other and unspecified hyperlipidemia 272.4 ; Hypertension, essential, benign 401.1 and Chronic kidney disease (CKD), stage III (moderate) 585.3 [place] [id number] [place] [address] 74033- 4940 Dec, [place] [id number] [place] [address] 14532- 1826 Dec, Depressive disorder, not elsewhere classified 311 and Generalized anxiety disorder 300.02 [place] [address] 39166- 1433 Dec, [place] [id number] [place] [address] 45309- 5514 Dec, [place] [address] 52817- 2115 Nov, Depressive disorder, not elsewhere classified 311 and Generalized anxiety disorder 300.02 [place] [id number] [place] [address] 83352- 8060 Nov, Arthritis of both knees 716.96 [place] [id number] [place] [address] 07117- 1805 Nov, PAF (paroxysmal atrial fibrillation) 427.31 ; CAD (coronary artery disease) 414.00 ; Chest pain 786.50 and Chronic kidney disease (CKD) stage G4/A1, severely decreased glomerular filtration rate (GFR) between 15-29 mL/min/1.73 square meter and albuminuria creatinine ratio less than 30 mg/g 585.[address] 05332- 9095 Oct, Coronary atherosclerosis of unspecified type of vessel, nenana or graft 414.00 ; Chronic kidney disease, 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.4 ; Hypertension 401.9 and Edema 782.3 [id number] [place] [address] 74353- 6072 Oct, Depressive disorder, not elsewhere classified 311 and Generalized anxiety disorder 300.02 [place] [id number] [place] [address] 58674- 6766 Oct, Depressive disorder, not elsewhere classified 311 and Generalized anxiety disorder 300.02 [place] [id number] [place] [address] 68955- 8279 Oct, [place] [id number] [place] [address] 95969- 4870 Oct, [place] [id number] [place] [address] 01558- 3544 Sep, [place] [id number] [place] [address] 25851- 3719 Sep, Chronic kidney disease, 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.4 [place] [id number] [place] [address] 42586- 7986 Sep, [place] [id number] [place] [address] 19658- 2198 Sep, Coronary atherosclerosis of unspecified type of vessel, nenana or graft 414.00 ; Hypertension 401.9 ; Edema 782.3 and Hypothyroidism 244.9 [facility] [id number] [place] [address] 05240- 5964 Sep, Coronary atherosclerosis of unspecified type of vessel, nenana or graft 414.00 ; Hypertension 401.9 ; Fibromyalgia 729.1 ; Edema 782.3 ; Hypothyroidism 244.9 and Anemia 285.9 [facility] [id number] [place] [address] 34511- 0021 Sep, Anxiety disorder, unspecified 300.00 and Depressive disorder , not elsewhere classified 311 [facility] [id number] [place] [address] 89631- 9452 Sep, [facility] [address] 89377- 3070 August, Generalized anxiety disorder 300.02 [facility] [id number] [place] [address] 53188- 4242 August, Closed fracture of lateral malleolus 824.2 [facility] [id number] [place] [address] 84652- 5920 Jul, [facility] [id number] [place] [address] 63353- 4947 Jul, [facility] [id number] [place] [address] 27114- 4378 Jun, [facility] [id number] [place] [address] 14876- 1584 Jun, [facility] [id number] [place] [address] 76714- 2277 Jun, [facility] [id number] [place] [address] 56547- 4977 Jun, [facility] [id number] [place] [address] [place] [address]- 4252 Jun, 2014 [facility] [place] [facility] [address] [id number] [place] [address]- 7781 Jun, [facility] [place] [facility] [address] [id number] [place] [address]- 5996 May, 2014 [facility] [place] [facility] [address] [id number] [place] [address]- 3896 May, 2014 [facility] [place] [facility] [address] [id number] [place] [address]- 6842 May, 2014 [facility] [place] [facility] [address] [id number] [place] [address]- 6642 18 May, 2014 [facility] [place] [facility] [address] [id number] [place] [address]- 3742 16 May, 2014 [facility] [place] [facility] [address] [facility] [id number] [place] [address]- 4027 16 May, 2014 [facility] [place] [facility] [address] [id number] [place] [address]- 0570 13 May, 2014 [facility] [place] [facility] [address] [id number] [address]- 7110 13 May, 2014 [facility] [place] [facility] [address] [facility] [id number] [place] [address]- 6537 10 May, 2014 [facility] [place] [facility] [address] [facility] [id number] [place] [address]- 2576 10 May, 2014 [facility] [place] [facility] [address] [id number] [place] [address]- 0545 Apr, [facility] [place] [facility] [address] [id number] [place] [address]- 9855 Apr, [facility] [place] [facility] [address] [facility] [id number] [place] [address]- 9867 Mar, [facility] [place] [facility] [address] [facility] [id number] [place] [address]- 9408 Mar, [facility] [place] [facility] [address] [id number] [place] [address]- 1305 Mar, [facility] [place] [facility] [address] [id number] [place] [address]- 9612 Mar, [facility] [place] [facility] [address] [id number] [place] [address]- 7631 Mar, [facility] [place] [facility] [address] [id number] [place] [address]- 5720 Mar, [facility] [place] [facility] [address] [id number] [place] [address]- 4212 Mar, [facility] [place] [facility] [address] [id number] [place] [address]- 3595 Feb, [facility] [place] [facility] [address] [id number] [place] [address]- 9463 Feb, [facility] [place] [facility] [address] [id number] [place] [address]- 1544 Feb, [facility] [place] [facility] [address] [id number] [place] [address]- 5490 Jan, [facility] [place] [facility] [address] [id number] [place] [address]- 8325 Jan, [facility] [place] [facility] [address] [id number] [address]- 6069 Jan, [facility] [place] [facility] [address] [id number], [place] [address]- 2270 20 Jan, 2014 [facility] [place] [facility] [address] [id number] [place] [address]- 5027 Jan, [facility] [place] [facility] [address] [id number] [place] [address]- 4999 Jan, [facility] [place] [facility] [address] [id number] [place] [address]- 8639 Jan, [facility] [place] [facility] [address] [id number] [place] [address]- 1801 Jan, [facility] [place] [facility] [address] [id number] [place] [address]- 6509 Jan, [facility] [place] [facility] [address] [id number] [place] 2980 Jan, [facility] [place] [facility] [address] [id number] [place] [address]- 5567 Nov, [facility] [place] [facility] [address] [id number] [place] [address]- 9792 Nov, [facility] [place] [facility] [address] [id number] [place] [address]- 7165 Nov, [facility] [place] [facility] [address] [id number] [place] [address]- 9837 Oct, [facility] [place] [facility] [address] [id number] [place] [address]- 3078 Oct, [facility] [place] [facility] [address] [id number] [place] [address]- 1532 Oct, [facility] [place] [facility] [address] [id number] [place] [address]- 9439 Oct, [facility] [place] [facility] [address] [id number] [place] [address]- 4376 Oct, [facility] [place] [facility] [address] [id number] [place] [address]- 4468 Oct, [facility] [place] [facility] [address] [id number] [place] [address]- 8148 Oct, [facility] [place] [facility] [address] [id number] [place] [address]- 2781 Oct, [facility] [place] [facility] [address] [id number] [place] [address]- 4230 Oct, [facility] [place] [facility] [address] [id number] [place] [address]- 9052 Sep, [facility] [place] [facility] [address] [id number] [place] [address]- 0378 Sep, [facility] [place] [facility] [address] [id number] [place] [address]- 4405 Sep, [facility] [place] [facility] [address] [id number] [place] [address]- 0283 Sep, [facility] [place] [facility] [address] [id number] [place] [address]- 2023 Sep, [facility] [place] [facility] [address] [id number] [place] [address]- 3329 Sep, [facility] [place] [facility] [address] [id number] [place] [address]- 7647 Sep, [facility] [place] [facility] [address] [id number] [place] [address]- 3398 Sep, [facility] [place] [facility] [address] [id number] [place] [address]- 9649 Sep, [facility] [place] [facility] [address] [id number] [place] [address]- 6782 August, [facility] [place] [facility] [address] [id number] [place] [address]- 8881 August, [facility] [place] [facility] [address] [id number] [place] [address]- 0671 August, [facility] [place] [facility] [address] [id number] [place] [address]- 1845 August, [facility] [place] [facility] [address] [id number] [place] [address]- 0286 August, [facility] [place] [facility] [address] [id number] [place] [address]- 2583 August, [facility] [place] [facility] [address] [id number] [place] [address]- 7141 Jul, [facility] [place] [facility] [address] [id number] [place] [address]- 3823 Jul, [facility] [place] [facility] [address] [id number] [place] [address]- 5490 Jul, [facility] [place] [facility] [address] [id number] [place] [address]- 4858 08 Jul, 2013 [facility] [place] [facility] [address] [facility] [id number] [place] [address]- 2407 Jul, [facility] [place] [facility] [address] [id number] [place] [address]- 2520 Jul, [facility] [place] [facility] [address] [id number] [place] [address]- 3808 Jun, [facility] [place] [facility] [address] [facility]NOTE 3] [id number] [place] [address]- 9864 Jun, [facility] [place] [facility] [address] [facility] 3] [id number] [place] [address]- 6653 May, [facility] [place] [facility] [address] [id number] [place] [address]- 9330 May, [facility] [place] [facility] [address] [id number] [place] [address]- 9599 May, [facility] [place] [facility] [address] [facility] [id number] [place] [address]- 0339 May, [facility] [place] [facility] [address] [facility] 3] [id number] [place] [address]- 1110 Apr, [facility] [place] [facility] [address] [id number] [place] [address]- 9889 Apr, [facility] [place] [facility] [address] [id number] [place] [address]- 5787 Mar, [facility] [place] [facility] [address] [id number] [place] [address]- 1077 Mar, [facility] [place] [facility] [address] [facility] [id number] [place] [address]- 6493 17 Mar, 2013 [facility] [place] [facility] [address] [id number] [place] [address]- 2878 17 Mar, 2013 [facility] [place] [facility] [address] [id number] [place] [address]- 7275 05 Mar, 2013 [facility] [place] [facility] [address] [id number] [place] [address]- 8096 Mar, [facility] [place] [facility] [address] [id number] [place] [address]- 5500 Feb, [facility] [place] [facility] [address] [id number] [place] [address]- 0722 Feb, [facility] [place] [facility] [address] [id number] [place] [address]- 7650 Feb, [facility] [place] [facility] [address] [id number] [place] [address]- 4781 Feb, [facility] [place] [facility] [address] [id number] [place] [address]- 2815 Feb, [facility] [place] [facility] [address] [id number] [place] [address]- 2743 Feb, [facility] [place] [facility] [address] [id number] [place] [address]- 7268 Jan, [facility] [place] [facility] [address] [id number] [place] 4232 24 Jan, 2013 [facility] [place] [facility] [address] [id number] [place] [address]- 8115 Jan, [facility] [place] [facility] [address] [id number] [place] [address]- 0739 Jan, [facility] [place] [facility] [address] [id number] [place] [address]- 8926 08 Jan, 2013 [facility] [place] [facility] [address] [id number] [place] [address]- 2546 Jan, [facility] [place] [facility] [address] [id number] [place] [address]- 9353 Dec, [facility] [place] [facility] [address] [id number] [place] [address]- 5377 Dec, [facility] [place] [facility] [address] [id number] [place] [address]- 4937 Nov, [facility] [place] [facility] [address] [id number] [place] [address]- 0485 Nov, [facility] [place] [facility] [address] [id number] [place] [address]- 8794 Oct, [facility] [place] [facility] [address] [id number] [place] [address]- 1370 Oct, [facility] [place] [facility] [address] [id number] [place] [address]- 1708 Oct, [facility] [place] [facility] [address] [id number] [place] [address]- 2696 Oct, [facility] [place] [facility] [address] [id number] [place] [address]- 7657 Oct, [facility] [place] [facility] [address] [id number] [place] [address]- 0487 Oct, [facility] [place] [facility] [address] [id number] [place] [address]- 9632 Sep, [facility] [place] [facility] [address] [id number] [place] [address]- 6518 Sep, [facility] [place] [facility] [address] [id number] [place] [address]- 6105 Sep, [facility] [place] [facility] [address] [id number] [place] [address]- 1480 Sep, [facility] [place] [facility] [address] [id number] [place] [address]- 2448 August, [facility] [place] [facility] [address] [id number] [place] [address]- 0753 August, [facility] [place] [facility] [address] [id number] [place] [address]- 3036 August, [facility] [address] [id number] [place] [address]- 6941 August, [facility] [address] [id number] [place] [address]- 9522 August, [facility] [address] [id number] [place] [address]- 5051 Jul, [facility] [address] [id number] [place] [address]- 2925 Jul, [facility] [address] [id number] [place] [address]- 7121 Jul, [facility] [address] [id number] [place] [address]- 4704 Jul, [facility] [address] [id number] [place] [address]- 1590 Jul, [facility] [address] [id number] [place] [address]- 5837 Jul, [facility] [address] [id number] [place] [address]- 2853 Jul, [facility] [address] [id number] [place] [address]- 5378 Jul, [facility] [address] [id number] [place] [address]- 1162 Jul, [facility] [address] [id number] [place] [address]- 1252 Jul, [facility] [address] [id number] [place] [id number] Jun, [facility] [place] [facility] [address] [id number] [place] [address]- 9486 Jun, [facility] [place] [facility] [address] [id number] [place] [address]- 1994 Jun, [facility] [place] [facility] [address] [id number] [place] [address]- 6653 Jun, [facility] [address] [id number] [place] [address]- 0694 Jun, [facility] [place] [facility] [address] [id number] [place] [address]- 4156 May, [facility] [place] [facility] [address] [id number] [place] [address]- 9375 18 May, 2012 [facility] [place] [facility] [address] [id number] [place] [address]- 6714 May, [facility] [place] [facility] [address] [id number] [place] [address]- 4998 Apr, [facility] [address] [id number] [place] [address]- 6845 Apr, [facility] [address] [id number] [place] [address]- 1910 Apr, [facility] [address] [id number] [place] [address]- 0290 Apr, [facility] [address] [id number] [place] [address]- 0544 Apr, [facility] [address] [id number] [place] [address]- 4223 Apr, [facility] [address] [id number] [place] [address]- 4987 Mar, [facility] [place] [facility] [address] [id number] [place] [address]- 9680 Mar, [facility] [place] [facility] [address] [id number] [place] [address]- 6253 Mar, [facility] [place] [facility] [address] [id number] [place] [address] 2546 Mar, [facility] [place] [facility] [address] [id number] [place] [address] Feb, [facility] [place] [facility] [address] [id number] [place] [address] Feb, [facility] [place] [facility] [address] [id number] [place] [address] Feb, [facility] [place] [facility] [address] [facility]NOTE [facility]] [id number] [place] [address] Feb, [facility] [place] [facility] [address] [id number], [place] [address] Feb, [facility] [place] [facility] [address] [id number] [place] [address] Feb, [facility] [place] [facility] [address] [id number], [place] [address] Feb, [facility] [place] [facility] [address] [facility]NOTE 3] [id number], [place] [address] Feb, [facility] [place] [facility] [address] [id number], [place] [address] Feb, [facility] [place] [facility] [address] [id number], [place] [address] Feb, [facility] [place] [facility] [address] [facility]NOTE 3] [id number], [place] [address] Feb, [facility] [place] [facility] [address] [id number], [place] [address] Feb, [facility] [place] [facility] [address] [id number], [place] [address] Feb, [facility] [place] [facility] [address] [id number], [place] [address] Feb, [facility] [place] [facility] [address] [id number], [place] [address] Feb, [facility] [place] [facility] [address] [facility]NOTE 3] [id number], [place] [address] Feb, [facility] [place] [facility] [address] [id number] [place] [address] 31 Jan, 2011 [facility] [place] [facility] [address] [id number] [place] [address]- [address] 31 Jan, 2011 [facility] [place] [facility] [address] [id number] [place] [address]- 1732 31 Jan, 2011 [facility] [place] [facility] [address] [id number] [place] [address]- [address] 31 Jan, 2011 [facility] [place] [facility] [address] [id number] [place] [address]- [address] 30 Jan, 2011 [facility] [place] [facility] [address] [id number] [place] [address] Jan, [facility] [place] [facility] [address] [id number] [place] [address]- 365[address] 25 Jan, 2012 [facility] [place] [facility] [address] [id number] [place] [address]- [address] 16 Jan, 2012 [facility] [place] [facility] [address] [id number] [place] [address]- [address] 16 Jan, 2012 [facility] [place] [facility] [address] [id number] [place] [address]- [address] 15 Jan, 2012 [facility] [place] [facility] [address] [facility]NOTE 3] [id number] [place] [address]- [address] 15 Jan, 2012 [facility] [place] [facility] [address] [id number] [place] [address]- 9[address] Jan, [facility] [place] [facility] [address] [id number] [place] [address] 26 Dec, 2011 [facility] [place] [facility] [address] [id number] [place] [address]- 1626 26 Sep, 2011 [facility] [place] [facility] [address] [id number] [place] [address]- [address]31 24 Sep, 2011 [facility] [place] [facility] [address] [id number] [place] [address]- [address] 23 Sep, 2011 [facility] [place] [facility] [address] [id number] [place] [address]- 9631 22 Sep, 2011 [facility] [place] [facility] [address] [id number] [place] [address]76 21 Dec, 2011 [facility] [place] [facility] [address] [id number] [place] [address]- [address] 20 Dec, 2011 [facility] [place] [facility] [address] [id number] [place] [address]- [address] 20 Sep, 2011 [facility] [place] [facility] [address] [id number] [place] [address]- [address] 07 Sep, 2011 [facility] [place] [facility] [address] [id number] [place] [address]- [address] 06 Sep, 2011 [facility] [place] [facility] [address] [id number] [place] [address]- [address] 06 Sep, 2011 [facility] [place] [facility] [address] [id number] [place] [address]- 0416 05 Dec, 2011 [facility] [place] [facility] [address] [id number] [place] [address]- [address] 23 Nov, 2011 [facility] [place] [facility] [address] [id number] [place] [address]- 5848 17 Nov, 2011 [facility] [place] [facility] [address] [id number] [place] [address]- [address]794 13 Nov, 2011 [facility] [place] [facility] [address] [id number] [place] [address]- 7198 10 Nov, 2011 [facility] [place] [facility] [address] [id number] [place] [address]- [address] 08 Nov, 2011 [facility] [place] [facility] [address] [id number] [place] [address]- [address] 07 Nov, 2011 [facility] [place] [facility] [address] [id number] [place] [address]- 3720 02 Nov, 2011 [facility] [place] [facility] [address] [id number] [place] [address]- [address]252 Nov, [facility] [place] [facility] [address] [id number] [place] [address]- [address] Oct, [facility] [place] [facility] [address] [id number] [place] [address]- [address] Oct, [facility] [place] [facility] [address] [id number] [place] [address] Oct, [facility] [place] [facility] [address] [id number] [place] [address]- 67[address] Oct, [facility] [place] [facility] [address] [id number] [place] [address]- [address]140 Oct, [facility] [place] [facility] [address] [id number] [place] [address]- [address] Oct, [facility] [place] [facility] [address] [id number] [place] [address]- [address]097 Oct, [facility] [place] [facility] [address] [id number] [place] [address]- [address] Sep, [facility] [place] [facility] [address] [id number] [place] [address]- [address] Sep, [facility] [place] [facility] [address] [id number] [place] [address] August, [facility] [place] [facility] [address] [id number] [place] [address] August, [facility] [place] [facility] [address] [id number] [place] [address] August, [facility] [place] [facility] [address] [id number] [place] [address] August, [facility] [place] [facility] [address] [id number] [place] [address] Jul, [facility] [place] [facility] [address] [id number] [place] [address] Jul, [facility] [place] [facility] [address] [id number] [place] [address] 06 Jul, 2011 [facility] [address] [id number] [place] [address] Jul, [facility] [place] [facility] [address] [id number] [place] [address] Jul, [facility] [address] [id number] [place] [address] Jul, [facility] [address] [id number] [place] [address] Jul, [facility] [address] [id number] [place] [address] Jul, [facility] [address] [id number] [place] [address] Jul, [facility] [address] [id number] [place] [address] Jun, [facility] [address] [id number] [place] [address] Jun, [facility] [address] [id number] [place] [address] 15 Jun, 2011 [facility] [address] [id number] [place] [address] 14 Jun, 2011 [facility] [address] [id number] [place] [address] Jun, [facility] [address] [id number] [place] [address] Jun, [facility] [place] [facility] [address] [id number] [place] [address] Jun, [facility] [address] [id number] [place] [address] May, [facility] [place] [facility] [address] [id number] [place] [address] May, [facility] [place] [facility] [address] [id number] [place] [address] May, [facility] [place] [facility] [address] [id number] [place] [address] May, [facility] [place] [facility] [address] [id number] [place] [address] May, [facility] [place] [facility] [address] [id number] [place] [address] Apr, [facility] [place] [facility] [address] [id number] [place] [address] Apr, [facility] [place] [facility] [address] [id number] [place] [address] Apr, [facility] [place] [facility] [address] [id number] [place] [address] Apr, [facility] [place] [facility] [address] [id number] [place] [address] Apr, [facility] [place] [facility] [address] [id number] [place] [address] Mar, [facility] [place] [facility] [address] [id number] [place] [address] Mar, [facility] [place] [facility] [address] [id number] [place] [address] Mar, [facility] [place] [facility] [address] [id number] [place] [address] Mar, [facility] [place] [facility] [address] [id number] [place] [address] Mar, [facility] [place] [facility] [address] [id number] [place] [address] Mar, [facility] [place] [facility] [address] [id number] [place] [address] Mar, [facility] [place] [facility] [address] [id number] [place] [address] 11 Feb, 2011 [facility] [address] [id number] [place] [address] Feb, [facility] [place] [facility] [address] [id number] [place] [address] Feb, [facility] [place] [facility] [address] [id number] [place] [address] Feb, [facility] [place] [facility] [address] [id number] [place] [address] Jan, [facility] [place] [facility] [address] [id number] [place] [address] Jan, [facility] [place] [facility] [address] [id number] [place] [address] Jan, [facility] [address] [id number] [place] [address] Jan, [facility] [place] [facility] [address] [id number] [place] [address] Nov, [facility] [place] [facility] [address] [id number] [place] [address] Mar, [facility] [place] [facility] [address] [id number] [place] [address] Mar, [facility] [place] [facility] [address] [id number] [place] [address] Mar, [facility] [place] [facility] [address] [id number] [place] [address] Mar, [facility] [place] [facility] [address] [id number] [place] [address] Mar, [facility] [place] [facility] [address] [id number] [place] [address] Mar, [facility] [place] [facility] [address] [id number] [place] [address] Feb, [facility] [address] [facility] [id number] [place] [address] 30 Feb, 2010 [facility] [address] [facility] [id number] [place] [address] Jan, [facility] [address] [facility] [id number] [address] Jan, [facility] [address] [facility] [id number] [address] Jan, IMMUNIZATIONS No Known Immunizations SOCIAL HISTORY Never Assessed REASON FOR VISIT Questions PLAN OF CARE VITAL SIGNS MEDICATIONS No Known Medications RESULTS No Results PROCEDURES No Known [...] months with contrast Medical History Anemia, normocytic Surgical History cholecystectomy Surgical History appendectomy Surgical History hysterectomy-fibroids Surgical History section Surgical History neuroplasty with transposition of median nerve at carpal tunnel-bilateral carpal tunnel surgery (summer) Surgical History Esophageal surgery-Dr. 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
[2018-05-29 08:01] LABS: BILIRUBIN,URINE NEGATIVE (NEGATIVE); CLARITY,URINE CLEAR; COLOR,URINE YELLOW; GLUCOSE, URINE (UA) NEGATIVE (NEGATIVE); KETONES,URINE NEGATIVE (NEGATIVE); LEUKOCYTE ESTERASE ,URINE 3+ (NEGATIVE); NITRITE,URINE POSITIVE (NEGATIVE); PH,URINE 6 (5-9); PROTEIN,URINE 1+ (NEGATIVE); UROBILINOGEN,URINE NORMAL (NORMAL)
--- OUTSIDE RECORDS SUMMARY | 2018-05-29 08:01 | XMS REPORT ---
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 Name Role Phone ISABEL MAE Unavailable PROBLEMS Type Condition ICD9-CM Code SHL66-EV Code Onset Dates Condition Status SNOMED Code Problem Long-term use of high-risk medication Z79.899 Active 703372598 Problem Abnormal chest CT R93.8 Active 986691614 Problem Low back pain M54.5 Active 022843126 Problem Generalized anxiety disorder F41.1 Active 35979400 Problem Dysthymic disorder F34.1 Active 21849388 Problem Coronary artery disease involving [place] coronary artery of [place] heart, angina presence unspecified I25.10 Active 3340276899005 Problem Depressed F32.9 Active 85048845 Problem Fibromyalgia M79.7 Active 166016099 Problem Hypothyroid E03.9 Active 39294191 Problem Essential (primary) hypertension I10 Active 80959955 Problem Insomnia G47.00 Active 245796590 Problem Vitamin D deficiency E55.9 Active 70876080 Problem Anemia in chronic kidney disease D63.1 Active 043521590612661 Problem Chronic kidney disease, unspecified N18.9 Active 793483827 Problem Body mass index (BMI) of 40.0-44.9 in adult Z68.41 Active 042638732 Problem Stage 3 chronic kidney disease N18.3 Active 826045796 Problem Restless leg G25.81 Active 73671201 Problem Palpitations R00.2 Active 90560358 Problem Asthma J45.909 Active 356648894 Problem Primary osteoarthritis of left knee M17.12 Active 165379916 Problem Bipolar disorder, current episode manic without psychotic features F31.10 Active 066389941 Problem Mood disorder F39 Active 52247003 Problem Degenerative tear of medial meniscus of left knee M23.204 Active 015975908 Problem History of colon polyps Z86.010 Active 467558164 Problem Asthma with acute exacerbation in adult J45.901 Active 524830840 Problem Chronic kidney disease, stage 4 (severe) N18.4 Active 878193591 Problem Functional 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 Active 21155081 Problem Hypokalemia E87.6 Active 23196190 Problem Mixed stress and urge urinary incontinence N39.46 Active 794185013 Problem History of anemia Z86.2 Active 812406742 Problem Other seasonal allergic rhinitis J30.2 Active 003730320 ALLERGIES No Information ENCOUNTERS Encounter Location Date Diagnosis [place] [address] [address] Sep, [place] [address] 63191- [address]10 August, [place] [address] 61852- 1401 August, Generalized anxiety disorder F41.1 and Major depressive disorder, recurrent episode with anxious distress F33.9 [place] [address] 27538- 5389 August, Abnormal chest CT R93.8 [place] [address] 55163- 0880 Jul, [place] [address] 52778- 1141 Jul, Chronic kidney disease, stage 4 (severe) N18.4 [place] [address] 31254- 6680 Jul, [place] [address] 49083- 0667 Jul, Restless leg G25.81 ; Mixed stress and urge urinary incontinence N39.46 and Fibromyalgia M79.7 [place] [address] [place] [id number] [place] [address] 56485- 6879 Jul, Chronic kidney disease, stage 4 (severe) N18.4 [place] [address] 70331- 4453 Jun, Orthostatic hypotension I95.1 ; Chronic kidney disease, stage 4 (severe) N18.4 ; Chest wall discomfort R07.89 and Body mass index (BMI) of 40.0-44.9 in adult Z68.41 [facility] [address] [place] [id number] [place] [address] 52679- 5134 Jun, [facility] [address] [place] [id number] [place] [address] 46459- 4212 Jun, Orthostatic hypotension I95.1 [facility] [address] [place] [id number] [place] [address] 73505- 8915 Jun, [facility] [address] [place] [id number] [place] [address] 27359 -9268 Jun, Orthostatic hypotension I95.1 ; Dysuria R30.0 and Acute cystitis without hematuria N30.00 [place] [address] [place] [id number] [place] [address] 48463- 7357 Jun, [facility] [address] [place] [id number] [place] [address] 24268- 7699 Jun, Chronic kidney disease, stage 4 (severe) N18.4 [place] [address] [place] [id number] [place] [address] 65664- 3411 Jun, Fibromyalgia M79.7 [place] [address] [place] [id number] [place] [address] 14122- 0996 Jun, [facility] [address] [place] [id number] [place] [address] 59660- 2975 Jun, [facility] [address] [place] [id number] [place] [address] 80414- [address] May, [address] R93.8 and Stage 3 chronic kidney disease N18.3 [facility] [address] [place] [id number] [place] [address] 55605- 4351 May, Chronic kidney disease, stage 4 (severe) N18.4 [facility] [address] [place] [address]30 May, Chronic kidney disease, stage 4 (severe) N18.4 [facility] [address] [place] [id number] [place] [address] 60317- [address] May, [address] R93.8 [facility] [id number] [place] [address] 08320- 8811 May, [facility] [address] [place] [id number] [place] [address] 67110- 9690 May, [facility] [address] [place] [address] 81008- 4819 May, Generalized anxiety disorder F41.1 and Major depressive disorder, recurrent episode with anxious distress F33.9 [place] [address] [place] [id number] [place] [address] 63416- 9369 May, Mood disorder F39 [place] [address] [place] [address] 40460- 4430 Apr, [facility] [address] [place] [address] 34381- 1331 Apr, Infected skin lesion L08.9 and Muscle strain of right shoulder region, initial encounter S46.911A [place] [address] [place] [address] 70388- 9961 Apr, Generalized anxiety disorder F41.1 and Major depressive disorder, recurrent episode with anxious distress F33.9 [facility] [address] [place] [address] 10827- 1850 Apr, [facility] [address] [place] [address] 79266- 8339 Apr, Recent urinary tract infection Z87.440 and Hypothyroid E03.9 [facility] [address] [place] [id number] [address] 1073 Apr, Generalized anxiety disorder F41.1 and Major depressive disorder, recurrent episode with anxious distress F33.9 [facility] [address] [address]- 2065 Apr, Recent urinary tract infection Z87.440 [facility] [address] [place] [address] 10435- 7645 28 Mar, 2017 [facility] [address] [place] [id number] [place] [address] 84703 -5736 Mar, Dysuria R30.0 ; Acute cystitis without hematuria N30.00 and BMI 40.0-44.9, adult Z68.41 [place] [address] [place] [address] 42004- 0124 14 Mar, 2017 [place] [address] [place] [id number] [place] [address] 16622- 1279 Mar, [place] [address] [place] [id number] [place] [address] 55311- 9029 Mar, Generalized anxiety disorder F41.1 and Major depressive disorder, recurrent episode with anxious distress F33.9 [place] [address] [place] [address] 26508- 0719 29 Feb, 2017 Conjunctivitis, bacterial H10.9 [place] [address] [place] [id number] [place] [address] 19218- 9420 27 Feb, 2017 [facility] [place] [address] [address] [place] [address] 94608 -2211 15 Feb, 2017 Conjunctivitis, bacterial H10.9 [facility] [address] [place] [address] 69422- 6133 15 Feb, 2017 [facility] [address] [place] [address] 44219 -5847 10 Feb, 2017 Dysuria R30.0 ; Acute cystitis N30.00 and BMI 40.0-44.9, adult Z68.41 [place] [address] [place] [address] 96996- 6679 08 Feb, 2017 [place] [address] [place] [address] 39715- 2912 Feb, Generalized anxiety disorder F41.1 and Major depressive disorder, recurrent episode with anxious distress F33.9 [place] [address] [place] [id number] [place] [address] 30957- 6250 Feb, Mood disorder F39 and BMI 40.0-44.9, adult Z68.41 [place] [id number] [place] [address] 28270- 9275 Jan, [place] [address] [place] [id number] [place] [address] 83478- 2640 Jan, [place] [id number] [place] [address] 43722- 2056 Jan, Hypothyroid E03.9 [place] [id number] [place] [address] 24484- 6703 Jan, [place] [id number] [place] [address] 11036- 9735 Jan, Chronic kidney disease, unspecified N18.9 ; Hypokalemia E87.6 ; Essential (primary) hypertension I10 ; Fibromyalgia M79.7 ; Coronary artery disease involving [place] coronary artery of [place] heart, angina presence unspecified I25.10 ; Hypothyroid E03.9 and Encounter for immunization Z23 [place] [id number] [place] [address] 92030- 9515 Jan, Hypothyroid E03.9 [place] [address] [place] [id number] [place] [address] 52484- 7116 Jan, [place] [id number] [place] [address] 74635- 8976 Dec, Vitamin D deficiency E55.9 [place] [id number] [place] [address] 04065- 9021 Dec, Primary osteoarthritis of left knee M17.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 [id number] [address] 3257 19 Dec, 2016 Fibromyalgia M79.7 [facility] [address] [place] [id number] [place] [address] 07360- 9802 18 Dec, 2016 Mood disorder F39 [facility] [id number] [place] [address] 96169- 1781 13 Dec, 2016 [facility] [address] [place] [id number] [place] [address] 15469- 4342 13 Dec, 2016 Generalized anxiety disorder F41.1 and Major depressive disorder, recurrent episode with anxious distress F33.9 [facility] [address] [place] [id number] [place] [address] 92280- 3939 11 Dec, 2016 [facility] [id number] [place] [address] 62463- 6674 08 Dec, 2016 Streptococcal meningitis G00.2 [facility] [id number] [place] [address] 27547- 1721 07 Dec, 2016 Streptococcal meningitis G00.2 [facility] [id number] [place] [address] 39026- 5152 07 Dec, 2016 [facility] [id number] [place] [address] 76523- 2809 06 Dec, 2016 Streptococcal meningitis G00.2 [facility] [id number] [place] [address] 43023- 7121 06 Dec, 2016 [facility] [id number] [place] [address] 61190- 9036 06 Dec, 2016 Major depressive disorder, recurrent episode with anxious distress F33.9 [facility] [id number] [place] [address] 29400- 9655 Nov, Fever, unspecified fever cause R50.9 [facility] [id number] [place] [address] 69013- 3178 Nov, [facility] [id number] [place] [address] 55054- 1027 Nov, Hypothyroid E03.9 [facility] [id number] [place] [address] 87547- 6087 Nov, Generalized anxiety disorder F41.1 and Major depressive disorder, recurrent episode with anxious distress F33.9 [facility] [address] [address]- 3448 Nov, [facility] [address] [place] [address] [id number] Oct, Dental examination Z01.20 [facility] [address] [place] [id number] [place] [address] 59757- 6238 Oct, Generalized anxiety disorder F41.1 and Major depressive disorder, recurrent episode with anxious distress F33.9 [facility] [address] [place] [id number] [place] [address] 94145- 8289 Oct, Chronic kidney disease, stage 4 (severe) N18.4 [facility] [address] [place] [id number] [place] [address] 27479- 7586 Oct, [facility] [address] [place] [id number] [place] [address] 81289- 1418 Oct, Fibromyalgia M79.7 [facility] [address] [place] [id number] [place] [address] 27975- 6547 Oct, [facility] [address] [place] [id number] [place] [address] 84610- 3699 Oct, Generalized anxiety disorder F41.1 ; Major depressive disorder, recurrent episode with anxious distress F33.9 and Bipolar disorder, current episode manic without psychotic features F31.10 [facility] [address] [place] [id number] [place] [address] 93513- 1639 Sep, [facility] [id number] [place] [address] 22584- 5111 Sep, [facility] [address] [place] [id number] [place] [address] 41810- 8155 Sep, Vitamin D deficiency E55.9 [place] [address], [place] [address]- 0728 14 Sep, 2016 Vitamin D deficiency E55.9 [place] [id number] [place] [address] 00578- 8094 Sep, [place] [address] [place] [id number] [place] [address] 67652- 4686 Sep, Chronic kidney disease, stage 4 (severe) N18.4 ; Hypothyroid E03.9 ; Restless leg G25.81 ; Fibromyalgia M79.7 ; Essential ( primary) hypertension I10 ; Vitamin D deficiency E55.9 ; Dyspepsia R10.13 ; Anemia in chronic kidney disease D63.1 ; Chronic kidney disease, unspecified N18.9 ; Coronary artery disease involving [place] coronary artery of [place] heart , angina presence unspecified I25.10 ; Screening breast examination Z12.39 and Low back pain M54.5 [place] [address] [place] [id number] [place] [address] 32839- 9532 August, Generalized anxiety disorder F41.1 and Major depressive disorder, recurrent episode with anxious distress F33.9 [place] [address] [place] [id number] [place] [address] 54606- 2020 August, Generalized anxiety disorder F41.1 and Major depressive disorder, recurrent episode with anxious distress F33.9 [place] [address] [place] [address] 40228- 5775 August, Fibromyalgia M79.7 [place] [address] [place] [id number] [place] [address] 92556- 8103 Jul, Generalized anxiety disorder F41.1 and Major depressive disorder, recurrent episode with anxious distress F33.9 [place] [address] [place] [address] 15484- 1188 Jul, Fibromyalgia M79.7 [place] [id number] [place] [address] 26809- 4496 Jul, Generalized anxiety disorder F41.1 [place] [address] [place] [id number] [place] [address] 29070- 9310 May, [place] [address] [place] [id number] [place] [address] 30970- 3380 May, Hypothyroid E03.9 [place] [address] [place] [id number] [place] [address] 86218- 6730 May, Chronic kidney disease, stage 4 (severe) N18.4 ; Hypothyroid E03.9 ; Restless leg G25.81 ; Fibromyalgia M79.7 ; Essential ( primary) hypertension I10 ; Vitamin D deficiency E55.9 ; Dyspepsia R10.13 ; Acute non-recurrent maxillary sinusitis J01.00 ; Anemia in chronic kidney disease D63.1 ; Chronic kidney disease, unspecified N18.9 and Coronary artery disease involving [place] coronary artery of [place] heart, angina presence unspecified I25.10 [place] [address] [place] [id number] [place] [address] 03703- 8180 May, Vitamin D deficiency, unspecified E55.9 [place] [address] [place] [id number] [place] [address] 27042- 0046 May, Generalized anxiety disorder F41.1 and Major depressive disorder, recurrent episode with anxious distress F33.9 [place] [address] [place] [id number] [place] [address] 81284- 9747 Apr, Pain in right knee M25.561 and Pain in left knee M25.562 [place] [address] [place] [id number] [place] [address] 74850- 1393 Apr, [place] [address] [place] [id number] [place] [address] 81510- 9041 Apr, [place] [address] [place] [id number] [place] [address] 96528- 2024 Apr, [place] [address] [place] [address] 62794- 3722 Mar, Generalized anxiety disorder F41.1 and Major depressive disorder, recurrent episode with anxious distress F33.9 [facility] [address] [place] [address] 98023- 2470 Mar, Generalized anxiety disorder F41.1 and Major depressive disorder, recurrent episode with anxious distress F33.9 [place] [address] [place] [id number] [place] [address] 36138- 8387 Mar, [facility] [address] [place] [id number] [place] [address] 93639- 4216 Mar, [place] [address] [place] [id number] [place] [address] 47043- 7617 Mar, [place] [address] [place] [id number] [place] [address] 64223- 7951 Mar, Asthma J45.909 and Fibromyalgia M79.7 [place] [address] [place] [id number] [place] [address] 94463- 1226 Mar, Chronic kidney disease, stage 4 (severe) N18.4 ; Vitamin D deficiency E55.9 and Essential (primary) hypertension I10 [place] [address] [place] [id number] [place] [address] 11726- 5215 Feb, [place] [address] [place] [id number] [place] [address] 41555- 0823 Feb, Dysuria R30.0 ; Mixed stress and urge urinary incontinence N39.46 ; Fibromyalgia M79.7 and Chronic kidney disease, stage IV (severe) N18.4 [place] [address] [place] [id number] [place] [address] 72936- 6183 Feb, Chronic kidney disease, stage 4 (severe) N18.4 [place] [address] [place] [id number] [place] [address] 35849- 8098 Feb, Chronic kidney disease, stage 4 (severe) N18.4 [place] [address] [place] [id number] [place] [address] 65010- 8068 Feb, [place] [address] [place] [id number] [place] [address] 13251- 2075 Feb, Vitamin D deficiency, unspecified E55.9 [place] [address] [place] [id number] [place] [address] 85604- 8182 Jan, [place] [address] [place] [id number] [place] [address] 00039- 8983 Jan, [place] [address] 39204- 5579 Dec, [place] [address] [place] [id number] [place] [address] 33523- 8660 Dec, Chronic kidney disease, stage 4 (severe) N18.4 [place] [address] [place] [id number] [place] [address] 64747- 1255 Dec, Dysthymic disorder F34.1 and Generalized anxiety disorder F41.1 [place] [address] [place] [id number] [place] [address] 23776- 6506 Dec, [place] [address] [place] [id number] [place] [address] 60037- 8106 Dec, [place] [address] [place] [id number] [place] [address] 43198- 7402 Dec, Dysthymic disorder F34.1 and Generalized anxiety disorder F41.1 [place] [address] [place] [id number] [place] [address] 14614- 3292 Dec, Dysuria R30.0 ; Chronic kidney disease, stage 4 (severe) N18.4 ; Hypertension I10 ; Dyspepsia R10.13 ; Yeast dermatitis B37.2 ; Palpitations R00.2 ; Hypothyroid E03.9 ; Functional 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 and Other seasonal allergic rhinitis J30.2 [facility] [address] [place] [id number] [place] [address] 17394 -4379 Dec, [facility] [address] [place] [id number] [place] [address] 14713 -3933 Nov, Dysuria R30.0 and Stress incontinence N39.3 [place] [address] [place] [id number] [place] [address] 48617- 8273 Nov, [place] [address] [place] [id number] [place] [address] 87010- 6246 Nov, [place] [address] 53605- 5702 Nov, Osteoarthritis of knees, bilateral M17.0 [place] [address] 17509- 7429 Nov, Dysthymic disorder F34.1 and Generalized anxiety disorder F41.1 [place] [address] 83790- 6083 Nov, [place] [address] 76082- 2645 Nov, [place] [address] 50594- 3877 Nov, Urgency of urination R39.15 [place] [address] 10083- 9679 Nov, [place] [address] [place] [id number] [place] [address] 01996- 0655 Nov, Chronic kidney disease, stage 4 (severe) N18.4 [place] [address] [place] [id number] [place] [address] 56243- 8239 Oct, Hypertension I10 ; Coronary artery disease involving [place] coronary artery of [place] heart, angina presence unspecified I25.10 ; Palpitations R00.2 ; Hypothyroid E03.9 ; Right foot pain M79.671 ; Functional 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 and Other seasonal allergic rhinitis J30.2 [place] [address] [place] [id number] [place] [address] 86141- 6930 Oct, Dysthymic disorder F34.1 and Generalized anxiety disorder F41.1 [place] [address] [address]- 5400 Sep, [facility] [address] [place] [id number] [place] [address] 15154- 5218 Sep, [facility] [address] [place] [id number] [place] [address] 39967- 0775 Sep, [place] [address] [place] [id number] [place] [address] 35295- 4364 Sep, [facility] [address] [place] [id number] [place] [address] 27875- 0182 Sep, [place] [address] [place] [id number] [place] [address] 63522- 0828 Sep, Dysthymic disorder F34.1 and Generalized anxiety disorder F41.1 [place] [id number] [place] [address] [id number]- 2283 16 Sep, 2015 Asthma with acute exacerbation in adult J45.901 ; Dysuria R30.0 ; Chronic kidney disease, stage 4 (severe) N18.4 and History of anemia Z86.2 [place] [id number] [place] [address] 40565- 2235 Sep, Generalized anxiety disorder F41.1 and Dysthymic disorder F34.1 [place] [id number] [place] [address] 08538- 9814 August, Screening breast examination Z12.39 and Acute recurrent maxillary sinusitis J01.01 [place] [id number] [place] [address] 70390- 8032 August, Osteoarthritis of knees, bilateral M17.0 [place] [id number] [place] [address] 97642- 4325 August, Chronic kidney disease, stage 4 (severe) N18.4 ; Acute non- recurrent maxillary sinusitis J01.00 ; Urinary problem R39.89 ; Bowel habit changes R19.4 ; Functional 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 and History of colon polyps Z86.010 [place] [id number] [address] 29 Jul, 2015 Dysthymic disorder F34.1 and Generalized anxiety disorder F41.1 [facility] [id number] [place] [address] 51674- 6211 Jul, [facility] [id number] [place] [address] 57673- 3872 Jul, Dysthymic disorder F34.1 ; Generalized anxiety disorder F41.1 and exterminator termite use of drug Z79.899 [facility] [id number] [place] [address] 55450- 7305 Jul, [facility] [id number] [place] [address] 61415- 2814 Jun, [facility] [id number] [place] [address] 12650- [phone] Jun, [facility] [id number] [place] [address] 43091- 0987 May, [facility] [id number] [place] [address] 31614- 9640 May, Dysthymic disorder F34.1 and Generalized anxiety disorder F41.1 [facility] [address] [address] 5305 Apr, Kidney disease N28.9 [facility] [id number] [place] [address] 56003- 9334 Apr, Generalized anxiety disorder F41.1 and Dysthymic disorder F34.1 [facility] [id number] [place] [address] 41194- 3082 Apr, Chronic kidney disease, stage 4 (severe) N18.4 [facility] [id number] [place] [address] 92130- 4258 Apr, Generalized anxiety disorder F41.1 ; Major depression, recurrent F33.9 and Sleep disturbance G47.9 [facility] [address] 71937- 1258 Mar, Generalized anxiety disorder F41.1 and Dysthymic disorder F34.1 [facility] [address] 52834- 4396 Mar, Generalized anxiety disorder F41.1 ; Dysthymic disorder F34.1 and Insomnia G47.00 [facility] [address] 52268- 8157 Mar, [facility] [address] 03228- 4238 Mar, [facility] [address] 89171- 8505 Mar, Osteoarthritis of knees, bilateral M17.[address] 10563- 6437 Mar, Hypertension I10 ; Hypothyroid E03.9 ; Dysthymic disorder F34.1 ; Chronic kidney disease, stage 4 (severe) N18.4 and Nausea & vomiting R11.2 [place] [address] 66740- 0107 Mar, Generalized anxiety disorder F41.1 ; Dysthymic disorder F34.1 and Insomnia G47.00 [place] [address] 04625- 1256 Mar, Dehydration E86.0 ; Chronic kidney disease, stage 4 (severe ) N18.4 and Nausea & vomiting R11.2 [facility] [address] 7[address] -8062 Mar, Gastroenteritis K52.9 [facility] [address] 17188- 6385 Mar, [facility] [address] 25612- 8222 Mar, [place] [id number] [place] [address] 26628- 7148 Feb, Dysthymic disorder F34.1 and Generalized anxiety disorder F41.1 [address] [place] [id number] [place] [address] 35663- 0651 Jan, UTI (urinary tract infection) N39.0 ; Asthma J45.909 ; Coronary artery disease involving [place] coronary artery of [place] heart, angina presence unspecified I25.10 ; Hypertension I10 ; Hypothyroid E03.9 ; Vitamin D deficiency E55.9 ; Insomnia G47.00 ; Palpitations R00.2 ; Depressed F32.9 ; Restless leg G25.81 and Anxiety F41.[address] 71934- 0869 Jan, Dysthymic disorder F34.1 and Generalized anxiety disorder F41.[address] 05454- 3228 Jan, [address] 52649- 3803 30 Dec, [address] 20445- 7321 Dec, Alkalosis 276.3 ; Chronic kidney disease, 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.4 ; Hyperpotassemia 276.7 ; Secondary hyperparathyroidism, renal 588.81 ; Proteinuria 791.0 ; Unspecified vitamin D deficiency 268.9 ; Anemia in chronic kidney disease 285.21 ; Other and unspecified hyperlipidemia 272.4 ; Hypertension, essential, benign 401.1 and Chronic kidney disease (CKD), stage III (moderate) 585.[address] 68863- 5454 Dec, [address] 35956- 3718 Dec, Depressive disorder, not elsewhere classified 311 and Generalized anxiety disorder 300.[address] 22474- 3990 Dec, [facility] [id number] [place] [address] 71106- 3631 Dec, [facility] [id number] [place] [address] 76686- 2765 Nov, Depressive disorder, not elsewhere classified 311 and Generalized anxiety disorder 300.02 [facility] [id number] [place] [address] 05923- 3295 Nov, Arthritis of both knees 716.96 [place] [id number] [place] [address] 11100- 8535 Nov, PAF (paroxysmal atrial fibrillation) 427.31 ; CAD (coronary artery disease) 414.00 ; Chest pain 786.50 and Chronic kidney disease (CKD) stage G4/A1, severely decreased glomerular filtration rate (GFR) between 15-29 mL/min/1.73 square meter and albuminuria creatinine ratio less than 30 mg/g 585.4 [place] [id number] [place] [address] 79695- 6806 Oct, Coronary atherosclerosis of unspecified type of vessel, [place] or graft 414.00 ; Chronic kidney disease, 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.4 ; Hypertension 401.9 and Edema 782.3 [place] [id number] [place] [address] 51033- 1175 Oct, Depressive disorder, not elsewhere classified 311 and Generalized anxiety disorder 300.02 [place] [id number] [place] [address] 67688- 2565 Oct, Depressive disorder, not elsewhere classified 311 and Generalized anxiety disorder 300.02 [place] [id number] [place] [address] 57239- 3147 Oct, [facility] [id number] [place] [address] 70589- 9500 Oct, [facility] [id number] [place] [address] 36898- 8419 Sep, [place] [id number] [place] [address] 91000- 5304 Sep, Chronic kidney disease, 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.4 [facility] [id number] [place] [address] 93228- 7351 Sep, [facility] [id number] [place] [address] 43118- 8239 Sep, Coronary atherosclerosis of unspecified type of vessel, [place] or graft 414.00 ; Hypertension 401.9 ; Edema 782.3 and Hypothyroidism 244.9 [facility] [id number] [place] [address] 39195- 2256 Sep, Coronary atherosclerosis of unspecified type of vessel, [place] or graft 414.00 ; Hypertension 401.9 ; Fibromyalgia 729.1 ; Edema 782.3 ; Hypothyroidism 244.9 and Anemia 285.9 [place] [address] 79713- 3441 Sep, Anxiety disorder, unspecified 300.00 and Depressive disorder , not elsewhere classified 311 [facility] [id number] [place] [address] 97199- 0589 Sep, [facility] [id number] [place] [address] 34530- 7444 August, Generalized anxiety disorder 300.02 [facility] [id number] [place] [address] 58677- 5322 August, Closed fracture of lateral malleolus 824.2 [facility] [id number] [place] [address] 69609- 3881 Jul, [facility] [id number] [place] [address] 08935- 2411 Jul, [facility] [id number] [place] [address] 05967- 8438 Jun, [facility] [id number] [place] [address] 62386- 1738 Jun, [facility] [place] [facility] [address] [id number] [place] [address]- 7740 Jun, 2014 [facility] [place] [facility] [address] [id number] [place] [address]- 6191 Jun, 2014 [facility] [place] [facility] [address] [id number] [place] [address]- 1433 Jun, 2014 [facility] [place] [facility] [address] [id number] [place] [address]- 4648 Jun, 2014 [facility] [place] [facility] [address] [id number] [place] [address]- 7316 May, 2014 [facility] [place] [facility] [address] [id number] [place] [address]- 6824 May, 2014 [facility] [place] [facility] [address] [id number] [place] [address]- 6096 18 May, 2014 [facility] [place] [facility] [address] [id number] [place] [address]- 8619 18 May, 2014 [facility] [place] [facility] [address] [id number] [place] [address]- 3535 16 May, 2014 [facility] [place] [facility] [address] [id number] [place] [address]- 0529 16 May, 2014 [facility] [place] [facility] [address] [id number] [place] [address]- 5711 13 May, 2014 [facility] [place] [facility] [address] [id number] [place] [address]- 6747 13 May, 2014 [facility] [place] [facility] [address] [id number] [place] [address]- 6922 10 May, 2014 [facility] [place] [facility] [address] [id number] [place] [address]- 7963 10 May, 2014 [facility] [place] [facility] [address] [id number] [place] [address]- 5707 Apr, [facility] [place] [facility] [address] [id number] [place] [address]- 3181 Apr, [facility] [place] [facility] [address] [id number] [place] [address]- 6312 Mar, [facility] [place] [facility] [address] [id number] [place] [address]- 2569 Mar, [facility] [place] [facility] [address] [id number] [place] [address]- 8589 Mar, [facility] [place] [facility] [address] [id number] [place] [address]- 7975 Mar, [facility] [place] [facility] [address] [id number] [place] [address]- 2239 Mar, [facility] [place] [facility] [address] [id number] [place] [address]- 3407 Mar, [facility] [place] [facility] [address] [id number] [place] [address]- 2722 Mar, [facility] [place] [facility] [address] [id number] [place] [address]- 8330 Feb, [facility] [place] [facility] [address] [id number] [place] [address]- 1572 Feb, [facility] [place] [facility] [address] [id number] [place] [address]- 5128 Feb, [facility] [place] [facility] [address] [id number] [place] [address]- 5363 Jan, [facility] [place] [facility] [address] [id number] [place] [address]- 9792 Jan, [facility] [place] [facility] [address] [id number] [place] [address]- 2987 Jan, [facility] [place] [facility] [address] [id number] [place] [address]- 7057 Jan, [facility] [place] [facility] [address] [id number] [place] [address]- 6357 Jan, [facility] [place] [facility] [address] [id number] [place] [address]- 1311 Jan, [facility] [place] [facility] [address] [id number] [place] 3099 Jan, [facility] [place] [facility] [address] [id number] [place] [address]- 1351 Jan, [facility] [place] [facility] [address] [id number] [place] [address]- 4725 Jan, [facility] [place] [facility] [address] [id number] [place] [address]- 7158 Jan, [facility] [place] [facility] [address] [id number] [place] [address]- 3028 Nov, [facility] [place] [facility] [address] [id number] [place] [address]- 0714 Nov, [facility] [place] [facility] [address] [id number] [place] [address]- 4430 Nov, [facility] [place] [facility] [address] [id number] [place] [address]- 0080 Oct, [facility] [place] [facility] [address] [id number] [place] [address]- 8703 Oct, [facility] [place] [facility] [address] [id number] [place] [address]- 2226 Oct, [facility] [place] [facility] [address] [id number] [place] [address]- 7678 Oct, [facility] [place] [facility] [address] [id number] [place] [address]- 1396 Oct, [facility] [place] [facility] [address] [id number] [place] [address]- 7536 Oct, [facility] [place] [facility] [address] [id number] [place] [address]- 7522 Oct, [facility] [place] [facility] [address] [id number] [place] [address]- 5361 Oct, [facility] [place] [facility] [address] [id number] [place] [address]- 2069 Oct, [facility] [place] [facility] [address] [id number] [place] [address]- 2783 Sep, [facility] [place] [facility] [address] [id number] [place] [address]- 2902 Sep, [facility] [place] [facility] [address] [id number] [place] [address]- 3123 Sep, [facility] [place] [facility] [address] [id number] [place] [address]- 4598 Sep, [facility] [place] [facility] [address] [id number] [place] [address]- 5198 Sep, [facility] [place] [facility] [address] [id number] [place] [address]- 7732 Sep, [facility] [place] [facility] [address] [id number] [place] [address]- 3870 Sep, [facility] [place] [facility] [address] [id number] [place] [address]- 6227 Sep, [facility] [place] [facility] [address] [id number] [place] [address]- 6899 Sep, [facility] [place] [facility] [address] [id number] [place] [address]- 3799 August, [facility] [place] [facility] [address] [id number] [place] [address]- 0175 August, [facility] [place] [facility] [address] [id number] [place] [address]- 2206 August, [facility] [place] [facility] [address] [id number] [place] [address]- 9219 August, [facility] [place] [facility] [address] [id number] [place] [address]- 1062 August, [facility] [place] [facility] [address] [id number] [place] [address]- 2935 August, [facility] [place] [facility] [address] [id number] [place] [address]- 7102 Jul, [facility] [place] [facility] [address] [id number] [place] [address]- 3074 Jul, [facility] [place] [facility] [address] [id number] [place] [address]- 9368 Jul, [facility] [place] [facility] [address] [id number] [place] [address]- 2567 Jul, [facility] [place] [facility] [address] [id number] [place] [address]- 7148 Jul, [facility] [place] [facility] [address] [id number] [place] [address]- 3197 Jul, [facility] [place] [facility] [address] [id number] [place] [address]- 4706 Jun, [facility] [place] [facility] [address] [id number] [place] [address]- 2611 Jun, [facility] [place] [facility] [address] [id number] [place] [address]- 6969 May, [facility] [place] [facility] [address] [id number] [place] [address]- 8747 May, [facility] [place] [facility] [address] [id number] [place] [address]- 9583 May, [facility] [place] [facility] [address] [id number] [place] [address]- 0040 May, [facility] [place] [facility] [address] [id number] [place] [address]- 9186 Apr, [facility] [place] [facility] [address] [id number] [place] 0671 Apr, [facility] [place] [facility] [address] [id number] [place] [address]- 9324 18 Mar, 2013 [facility] [place] [facility] [address] [id number] [place] [address]- 4207 18 Mar, 2013 [facility] [place] [facility] [address] [id number] [place] [address]- 2695 17 Mar, 2013 [facility] [place] [facility] [address] [facility] [place] [id number] [place] [address]- 1922 17 Mar, 2013 [facility] [place] [facility] [address] [id number] [place] [address]- 5299 05 Mar, 2013 [facility] [place] [facility] [address] [id number] [place] [address]- 3290 05 Mar, 2013 [facility] [place] [facility] [address] [id number], [place] [address]- 2558 Feb, [facility] [place] [facility] [address] [id number] [place] [address]- 1539 Feb, [facility] [place] [facility] [address] [id number], [place] [address]- 1150 14 Feb, 2013 [facility] [place] [facility] [address] [id number], [place] [address]- 4990 14 Feb, 2013 [facility] [place] [facility] [address] [facility] [id number], [place] [address]- 9352 Feb, [facility] [place] [facility] [address] [id number], [place] [address]- 8357 Feb, [facility] [place] [facility] [address] [id number], [place] [address]- 2115 24 Jan, 2013 [facility] [place] [facility] [address] [id number], [place] [address]- 8622 24 Jan, 2013 [facility] [place] [facility] [address] [facility] [id number], [place] [address]- 4730 10 Jan, 2013 [facility] [place] [facility] [address] [facility] [id number], [place] [address]- 0968 10 Jan, 2013 [facility] [place] [facility] [address] [id number] [place] [address]- 8949 Jan, [facility] [place] [facility] [address] [id number] [place] [address]- 6683 Jan, [facility] [place] [facility] [address] [id number] [place] [address]- 1288 Dec, [facility] [place] [facility] [address] [id number] [place] [address]- 3924 Dec, [facility] [place] [facility] [address] [id number] [place] [address]- 1076 Nov, [facility] [place] [facility] [address] [id number] [place] [address]- 9918 Nov, [facility] [place] [facility] [address] [id number] [place] [address]- 8066 Oct, [facility] [place] [facility] [address] [id number] [place] [address]- 1387 Oct, [facility] [place] [facility] [address] [id number] [place] [address]- 7866 Oct, [facility] [place] [facility] [address] [id number] [place] [address]- 9501 Oct, [facility] [place] [facility] [address] [id number] [place] [address]- 4804 Oct, [facility] [place] [facility] [address] [id number] [place] [address]- 6553 Oct, [facility] [place] [facility] [address] [id number] [place] [address]- 9493 Sep, [facility] [place] [facility] [address] [id number] [place] [address]- 2476 Sep, [facility] [place] [facility] [address] [id number] [place] [address]- 5511 Sep, [facility] [place] [facility] [address] [id number] [place] [address]- 3571 Sep, [facility] [place] [facility] [address] [id number] [place] [address]- 3940 August, [facility] [address] [id number] [place] [address]- 7008 August, [facility] [address] [id number] [place] [address]- 2640 August, [facility] [address] [id number] [place] [address]- 1317 August, [facility] [address] [id number] [place] [address]- 4522 August, [facility] [address] [id number] [place] [address]- 1468 Jul, [facility] [address] [id number] [place] [address]- 3856 Jul, [facility] [address] [id number] [place] [address]- 3528 Jul, [facility] [address] [id number] [place] [address]- 0417 Jul, [facility] [address] [id number] [place] [address]- 8885 Jul, [facility] [address] [id number] [place] [address]- 9890 Jul, [facility] [address] [id number], [place] [address]- 8179 Jul, [facility] [address] [id number] [place] [address]- 8182 Jul, [facility] [address] [id number] [place] [address]- 1916 Jul, [facility] [address] [id number] [place] [address]- 3296 Jul, [facility] [place] [address] [address] [facility] [id number] [id number] Jun, [facility] [address] [id number] [place] [address]- 6172 Jun, [facility] [address] [id number] [place] [address]- 6545 Jun, [facility] [address] [id number] [place] [address]- 2673 Jun, [facility] [place] [facility] [address] [id number] [place] [address]- 8817 Jun, [facility] [address] [id number] [place] [address]- 9753 May, [facility] [place] [facility] [address] [id number] [place] [address]- 7557 May, [facility] [address] [id number] [place] [address]- 3734 May, [facility] [place] [facility] [address] [id number] [place] [address]- 7306 Apr, [facility] [address] [id number] [place] [address]- 2825 Apr, [facility] [address] [id number] [place] [address]- 0261 Apr, [facility] [address] [id number] [place] [address]- 1465 Apr, [facility] [place] [facility] [address] [id number], [place] [address]- 9280 Apr, [facility] [place] [facility] [address] [id number] [place] [address] Apr, [facility] [place] [facility] [address] [id number] [place] [address] Mar, [facility] [place] [facility] [address] [id number] [place] [address] Mar, [facility] [place] [facility] [address] [id number] [place] [address] Mar, [facility] [address] [id number] [place] [address] Mar, [facility] [place] [facility] [address] [id number] [place] [address] Feb, [facility] [address] [id number] [place] [address] Feb, [facility] [place] [facility] [address] [id number] [place] [address] Feb, [facility] [address] [id number] [place] [address] Feb, [facility] [place] [facility] [address] [facility] [place] [id number] [place] [address] Feb, [facility] [place] [facility] [address] [facility] [place] [id number] [place] [address] Feb, [facility] [address] [id number] [place] [address] Feb, [facility] [place] [facility] [address] [facility] [place] [id number] [place] [address] Feb, [facility] [address] [facility] [place] [id number] [place] [address] Feb, [facility] [place] [facility] [address] [facility] [place] [id number] [place] [address] Feb, [facility] [place] [facility] [address] [id number] [place] [address] Feb, [facility] [place] [facility] [address] [id number] [place] [address] Feb, [facility] [place] [facility] [address] [facility] [place] [id number] [place] [address] Feb, [facility] [place] [facility] [address] [facility] [place] [id number] [place] [address]- [address] Feb, [facility] [place] [facility] [address] [id number] [place] [address]- [address] Feb, [facility] [place] [facility] [address] [id number] [place] [address]- [address] Feb, [facility] [place] [facility] [address] [id number] [place] [address] Jan, [facility] [place] [facility] [address] [id number] [place] [address] Jan, [facility] [place] [facility] [address] [id number] [place] [address] Jan, [facility] [place] [facility] [address] [id number] [place] [address] Jan, [facility] [place] [facility] [address] [facility] [place] [id number] [place] [address] Jan, [facility] [place] [facility] [address] [id number], [place] [address] Jan, [facility] [place] [facility] [address] [facility] [place] [id number], [place] [address] Jan, [facility] [place] [facility] [address] [facility] [place] [id number], [place] [address] Jan, [facility] [place] [facility] [address] [facility] [place] [id number][place] [address] Jan, [facility] [place] [facility] [address] [id number], [place] [address] Jan, [facility] [place] [facility] [address] [id number], [place] [address] Jan, [facility] [place] [facility] [address] [facility] [place] [id number], [place] [address] Jan, [facility] [place] [facility] [address] [facility] [place] [id number][place] [address] Dec, [facility] [place] [facility] [address] [id number], [place] [address] 26 Sep, 2011 [facility] [place] [facility] [address] [id number] [place] [address] 24 Sep, 2011 [facility] [place] [facility] [address] [id number] [place] [address] 23 Sep, 2011 [facility] [place] [facility] [address] [id number] [place] [address]46 22 Sep, 2011 [facility] [place] [facility] [address] [id number] [place] [address]46 21 Sep, 2011 [facility] [place] [facility] [address] [id number] [place] [address]- [address] 20 Sep, 2011 [facility] [place] [facility] [address] [id number] [place] [address]- [address] 20 Sep, 2011 [facility] [place] [facility] [address] [id number] [place] [address]- [address] 07 Sep, 2011 [facility] [place] [facility] [address] [id number] [place] [address]- [address] 06 Sep, 2011 [facility] [place] [facility] [address] [id number] [place] [address]- [address] 06 Sep, 2011 [facility] [facility] [address] [id number] [place] [address] 05 Sep, 2011 [facility] [place] [facility] [address] [id number] [place] [address] 23 Nov, 2011 [facility] [place] [facility] [address] [id number] [place] [address] 17 Nov, 2011 [facility] [place] [facility] [address] [id number] [place] [address] 13 Nov, 2011 [facility] [place] [facility] [address] [id number] [place] [address]48 10 Nov, 2011 [facility] [place] [facility] [address] [id number] [place] [address] 08 Nov, 2011 [facility] [place] [facility] [address] [id number] [place] [address] Nov, [facility] [place] [facility] [address] [id number] [place] [address] Nov, [facility] [place] [facility] [address] [id number] [place] [address] Nov, [facility] [place] [facility] [address] [id number] [place] [address] Oct, [facility] [place] [facility] [address] [id number] [place] [address] Oct, [facility] [place] [facility] [address] [id number] [place] [address] Oct, [facility] [place] [facility] [address] [id number] [place] [address] Oct, [facility] [place] [facility] [address] [id number] [place] [address] Oct, [facility] [place] [facility] [address] [id number] [place] [address]- [address]842 Oct, [facility] [place] [facility] [address] [id number] [place] [address] 118[address] Oct, [facility] [address] [id number] [place] [address] Sep, [facility] [place] [facility] [address] [id number] [place] [address] Sep, [facility] [place] [facility] [address] [id number] [place] [address] August, [facility] [place] [facility] [address] [id number] [place] [address]- [address] August, [facility] [address] [id number] [place] [address] August, [facility] [place] [address] [id number] [place] [address] August, [facility] [address] [id number] [place] [address] 9697 Jul, [facility] [address] [id number] [place] [address]- [address] Jul, [facility] [address] [id number] [place] [address] Jul, [facility] [address] [id number] [place] [address] Jul, [facility] [address] [id number] [place] [address]851 Jul, [facility] [address] [id number] [place] [address] Jul, [facility] [address] [id number] [place] [address] 3414 Jul, [facility] [address] [id number] [place] [address]138 Jul, [facility] [facility] [address] [id number] [place] [address] 6048 Jul, [facility] [address] [id number] [place] [address] 2710 Jun, [facility] [address] [id number] [place] [address]- 8978 19 Jun, 2011 [facility] [address] [id number], [place] [address] 15 Jun, 2011 [facility] [address] [id number] [place] [address] 3962 14 Jun, 2011 [facility] [address] [id number] [place] [address]- 2577 12 Jun, 2011 [facility] [address] [id number] [place] [address]- 6093 09 Jun, 2011 [facility] [address] [id number] [place] [address] Jun, [facility] [address] [id number] [place] [address] May, [facility] [address] [id number] [place] [address]- [address]696 24 May, 2011 [facility] [address] [id number] [place] [address] 2546 May, [facility] [address] [id number] [place] [address]- 2546 May, [facility] [address] [id number] [place] [address] 4936 May, [facility] [address] [id number] [place] [address]396 Apr, [facility] [address] [id number] [place] [address] 2382 Apr, [facility] [address] [id number] [place] [address] 4649 Apr, [facility] [address] [id number] [place] [address]75 Apr, [facility] [address] [id number] [place] [address]- [address] Apr, [facility] [address] [id number] [place] [address] 254 Mar, [facility] [address] [id number] [place] [address] 2546 Mar, [facility] [address] [id number] [place] [address]- [address]46 Mar, [facility] [address] [id number] [place] [address] 2546 Mar, [facility] [address] [id number] [place] [address]- 2562 Mar, [facility] [address] [id number] [place] [address]- 4370 Mar, [facility] [address] [id number] [place] [address]- 0442 Mar, [facility] [address] [id number] [place] [address] Feb, [facility] [address] [id number] [place] [address]558 Feb, [facility] [facility] [address] [id number] [place] [address] Feb, [facility] [address] [id number] [place] [address]- 6265 Feb, [facility] [address] [id number] [place] [address] 36[address] Jan, [facility] [address] [id number] [place] [address]- 6[address] Jan, [facility] [address] [id number] [place] [address]- [address]324 Jan, [facility] [address] [id number] [place] [address]- 8643 Jan, [facility] [address] [id number] [place] [address]- 5982 Nov, [facility] [address] [id number], [place] [address] Mar, [facility] [address] [id number] [place] [address]- 5210 Mar, [facility] [address] [id number] [place] [address]- 9726 Mar, [facility] [address] [id number] [place] [address]- 3079 Mar, [facility] [address] [id number], [place] [address] Mar, [facility] [address] [facility] [id number], [place] [address] 2546 Mar, [facility] [address] [facility] [place] [id number], [place] [address] Feb, [facility] [address] [facility] [place] [id number], [place] [address] Feb, [facility] [address] [facility] [place] [id number], [place] [address] Jan, [facility] [address] [id number], [place] [address] Jan, [facility] [address] [facility] [place] [id number], [place] [address] Jan, IMMUNIZATIONS No Known Immunizations SOCIAL HISTORY Never Assessed REASON FOR VISIT Lab (walk-in) PLAN OF CARE VITAL SIGNS MEDICATIONS Unknown Medications RESULTS Name Result Date Reference Range TSH 2017-01-17 TSH 8.240 0.450-4.500 TRILEPTAL (OXCARBAZEPIN) 2017-01-17 Oxcarbazepine 7 10-35 PROCEDURES Procedure Date Ordered Result Body Site VENIPUNCT, ROUTINE* Jan 17, 2017 INSTRUCTIONS MEDICATIONS ADMINISTERED No Known Medications [...] CPAP Noncompliance_ Dr. Madden advises agains driving. Surgical History cholecystectomy Surgical History appendectomy Surgical History hysterectomy-fibroids Surgical History section Surgical History neuroplasty with transposition of median nerve at carpal tunnel-bilateral carpal tunnel surgery (summer) Surgical History Esophageal surgery-Dr. 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
--- NOTE | 2018-05-29 08:02 | Diagnostic Imaging Report ---
Indication: Palpitation and chest pain Portable upright AP view the chest is obtained with comparison made study of 05/08/2018. FINDINGS: Heart size and pulmonary vascularity are within normal limits, and the lungs are clear, bilaterally. IMPRESSION: Unremarkable chest. Dictated by: Dictated on workstation # [id number]
--- OUTSIDE RECORDS SUMMARY | 2018-05-29 08:02 | XMS REPORT ---
Author Author ISABEL MAE [facility] Address [address] [place] [address] Care Team Providers Care Test Facility Engineer Name Role Phone ISABEL MAE Unavailable PROBLEMS Type Condition ICD9-CM Code OXL44-[id number] Code Onset Dates Condition Status SNOMED Code Problem Long-term use of high-risk medication Z79.899 Active 430047896 Problem Abnormal chest CT R93.8 Active 325928091 Problem Low back pain M54.5 Active 045956381 Problem Generalized anxiety disorder F41.1 Active 49764163 Problem Dysthymic disorder F34.1 Active 23709647 Problem Coronary artery disease involving [place] coronary artery of [place] heart, angina presence unspecified I25.10 Active 2429813911056 Problem Depressed F32.9 Active 42478689 Problem Fibromyalgia M79.7 Active 809469242 Problem Hypothyroid E03.9 Active 53960588 Problem Essential (primary) hypertension I10 Active 90446404 Problem Insomnia G47.00 Active 908797091 Problem Vitamin D deficiency E55.9 Active 26713373 Problem Anemia in chronic kidney disease D63.1 Active 729195934045041 Problem Chronic kidney disease, unspecified N18.9 Active 601997925 Problem Body mass index (BMI) of 40.0-44.9 in adult Z68.41 Active 393807050 Problem Stage 3 chronic kidney disease N18.3 Active 197503880 Problem Restless leg G25.81 Active 01643272 Problem Palpitations R00.2 Active 09994320 Problem Asthma J45.909 Active 636940020 Problem Primary osteoarthritis of left knee M17.12 Active 171599668 Problem Bipolar disorder, current episode manic without psychotic features F31.10 Active 585786019 Problem Mood disorder F39 Active 96942515 Problem Degenerative tear of medial meniscus of left knee M23.204 Active 585293091 Problem History of colon polyps Z86.010 Active 344649125 Problem Asthma with acute exacerbation in adult J45.901 Active 060286931 Problem Chronic kidney disease, stage 4 (severe) N18.4 Active 569149160 Problem Functional 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 Active 17459622 Problem Hypokalemia E87.6 Active 03273291 Problem Mixed stress and urge urinary incontinence N39.46 Active 032896023 Problem History of anemia Z86.2 Active 764470031 Problem Other seasonal allergic rhinitis J30.2 Active 707165471 ALLERGIES No Information ENCOUNTERS Encounter Location Date Diagnosis [facility] [id number] [place] [address] 37349- 8830 Sep, [facility] [address] 01758- 9406 August, [facility] [id number] [place] [address] 93472- 6238 August, [facility] [address] 82841- 1073 August, Ab[address] chest [address] R93.8 [facility] [id number] [place] [address] 66534- 2186 August, Generalized anxiety disorder F41.1 and Major depressive disorder, recurrent episode with anxious distress F33.9 [facility] [id number] [place] [address] 15932- 5275 August, [address] R93.8 [facility] [id number] [place] [address] 14083- 5713 Jul, [facility] [address] 82172- 7699 Jul, Chronic kidney disease, stage 4 (severe) N18.4 [facility] [address] 84057- 7431 Jul, [facility] [id number] [place] [address] 93258- 9838 Jul, Restless leg G25.81 ; Mixed stress and urge urinary incontinence N39.46 and Fibromyalgia M79.7 [facility] [id number] [place] [address] 05440- 5302 Jul, Chronic kidney disease, stage 4 (severe) N18.4 [facility] [id number] [place] [address] 12847- 5132 Jun, Orthostatic hypotension I95.1 ; Chronic kidney disease, stage 4 (severe) N18.4 ; Chest wall discomfort R07.89 and Body mass index (BMI) of 40.0-44.9 in adult Z68.41 [facility] [id number] [place] [address] 02078- 2314 Jun, [facility] [address] 91872- 1945 Jun, Orthostatic hypotension I95.1 [facility] [id number] [place] [address] 54971- 5545 Jun, [facility] [id number] [place] [address] 75266 -3669 Jun, Orthostatic hypotension I95.1 ; Dysuria R30.0 and Acute cystitis without hematuria N30.00 [facility] [id number] [place] [address] 48703- 7079 Jun, [facility] [id number] [place] [address] 77279- 6445 Jun, Chronic kidney disease, stage 4 (severe) N18.4 [facility] [id number] [place] [address] 37491- 0411 Jun, Fibromyalgia M79.7 [facility] [id number] [place] [address] 13661- 4089 Jun, [facility] [id number] [place] [address] 60295- 3419 Jun, [facility] [id number] [place] [address] 76270- [address] May, [address] R93.8 and Stage 3 chronic kidney disease N18.3 [facility] [address] [address] 1771 May, Chronic kidney disease, stage 4 (severe) N18.4 [facility] [address] [address]- 3160 May, Chronic kidney disease, stage 4 (severe) N18.4 [facility] [id number] [place] [address] 10326- 7[address] May, [address] R93.8 [facility] [id number] [place] [address] 55144- 1650 May, [facility] [id number] [place] [address] 46477- 8708 May, [facility] [id number] [place] [address] 05583- 6195 May, Generalized anxiety disorder F41.1 and Major depressive disorder, recurrent episode with anxious distress F33.9 [facility] [address] [place] [address] 86358- 8469 May, Mood disorder F39 [facility] [address] [place] [address] 37751- 9446 Apr, [facility] [address] [place] [address] 46277- 3941 Apr, Infected skin lesion L08.9 and Muscle strain of right shoulder region, initial encounter S46.911A [facility] [address] [place] [address] 07806- 1371 Apr, Generalized anxiety disorder F41.1 and Major depressive disorder, recurrent episode with anxious distress F33.9 [facility] [address] [place] [address]- 2170 Apr, [facility] [address] [place] [address] 47494- 7180 Apr, Recent urinary tract infection Z87.440 and Hypothyroid E03.9 [facility] [address] [place] [address] 08737- 4414 Apr, Generalized anxiety disorder F41.1 and Major depressive disorder, recurrent episode with anxious distress F33.9 [facility] [id number] [place] [address] 48695- 1848 Apr, Recent urinary tract infection Z87.440 [facility] [id number] [place] [address] 94563- 0285 Mar, [facility] [id number] [place] [address] 29834 -8859 Mar, Dysuria R30.0 ; Acute cystitis without hematuria N30.00 and BMI 40.0-44.9, adult Z68.41 [facility] [id number] [place] [address] 37175- 0079 Mar, [facility] [id number] [place] [address] 62065- 3071 Mar, [facility] [id number] [place] [address] 58650- 5091 Mar, Generalized anxiety disorder F41.1 and Major depressive disorder, recurrent episode with anxious distress F33.9 [facility] [address] [place] [address] 45315- 9859 Feb, Conjunctivitis, bacterial H10.9 [facility] [id number] [place] [address] 76877- 9925 Feb, [facility] [id number] [place] [address] 36443 -9669 Feb, Conjunctivitis, bacterial H10.9 [facility] [id number] [place] [address] 61073- 3759 15 Feb, 2017 [facility] [id number] [place] [address] 27113 -4964 Feb, Dysuria R30.0 ; Acute cystitis N30.00 and BMI 40.0-44.9, adult Z68.41 [facility] [address] 33534- 4847 Feb, [facility] [id number] [place] [address] 11740- 2637 Feb, Generalized anxiety disorder F41.1 and Major depressive disorder, recurrent episode with anxious distress F33.9 [facility] [address] 77263- 2283 Feb, Mood disorder F39 and BMI 40.0-44.9, adult Z68.41 [facility] [address] 73179- 1135 Jan, [facility] [address] 75536- 5513 Jan, [facility] [address] 60853- 9706 Jan, Hypothyroid E03.9 [facility] [address] 83662- 9167 Jan, [facility] [id number] [place] [address] 45001- 7863 Jan, Chronic kidney disease, unspecified N18.9 ; Hypokalemia E87.6 ; Essential (primary) hypertension I10 ; Fibromyalgia M79.7 ; Coronary artery disease involving [place] coronary artery of [place] heart, angina presence unspecified I25.10 ; Hypothyroid E03.9 and Encounter for immunization Z23 [facility] [id number] [place] [address] 79711- 9946 Jan, Hypothyroid E03.9 [facility] [id number] [place] [address] 60407- 2867 Jan, [facility] [address] 09356- 1334 Dec, Vitamin D deficiency E55.9 [facility] [address], [place] [address]- 5069 28 Dec, 2016 Primary osteoarthritis of left knee M17.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 [facility] [address] [place] [address] 68162- 4047 19 Dec, 2016 Fibromyalgia M79.7 [facility] [id number] [place] [address] 23966- 1310 18 Sep, 2016 Mood disorder F39 [facility] [id number] [place] [address] 55817- 9587 13 Dec, 2016 [facility] [id number] [place] [address] 03868- 0522 13 Dec, 2016 Generalized anxiety disorder F41.1 and Major depressive disorder, recurrent episode with anxious distress F33.9 [facility] [address] [place] [address] 27313- 3416 11 Dec, 2016 [facility] [id number] [place] [address] 44659- 2206 08 Sep, 2016 Streptococcal meningitis G00.2 [facility] [address] [place] [address] 48614- 9297 07 Dec, 2016 Streptococcal meningitis G00.2 [facility] [address], [place] [address]- 9153 07 Dec, 2016 [facility] [id number] [place] [address] 67664- 2548 06 Dec, 2016 Streptococcal meningitis G00.2 [facility] [address] [place] [address] 36694- 2766 06 Dec, 2016 [facility] [id number] [place] [address] 11462- 3599 06 Sep, 2016 Major depressive disorder, recurrent episode with anxious distress F33.9 [facility] [id number] [place] [address] 74146- 0358 Nov, Fever, unspecified fever cause R50.9 [facility] [address] [place] [address] 32738- 6313 Nov, [facility] [id number] [place] [address] 79301- 9342 Nov, Hypothyroid E03.9 [facility] [id number] [place] [address] 15422- 0944 Nov, Generalized anxiety disorder F41.1 and Major depressive disorder, recurrent episode with anxious distress F33.9 [facility] [id number] [place] [address] 16686- 0513 Nov, [facility] [id number] [place] [address] [id number] Oct, Dental examination Z01.20 [facility] [id number] [place] [address] 78262- 9648 Oct, Generalized anxiety disorder F41.1 and Major depressive disorder, recurrent episode with anxious distress F33.9 [facility] [id number] [place] [address] 07662- 6394 Oct, Chronic kidney disease, stage 4 (severe) N18.4 [facility] [id number] [place] [address] 92554- 1991 Oct, [facility] [id number] [place] [address] 38741- 5831 Oct, Fibromyalgia M79.7 [facility] [id number] [place] [address] 71852- 0628 Oct, [facility] [id number] [place] [address] 41672- 1831 Oct, Generalized anxiety disorder F41.1 ; Major depressive disorder, recurrent episode with anxious distress F33.9 and Bipolar disorder, current episode manic without psychotic features F31.10 [facility] [id number] [place] [address] 92187- 2859 Sep, [facility] [address], [place] [address]- 0561 Sep, [facility] [address] [place] [address] 38698- 5263 15 Sep, 2016 Vitamin D deficiency E55.9 [facility] [address], [place] [address]- 2316 14 Sep, 2016 Vitamin D deficiency E55.9 [facility] [address], [place] [address]- 7092 Sep, [facility] [id number] [place] [address] 96279- 1501 07 Sep, 2016 Chronic kidney disease, stage 4 (severe) N18.4 ; Hypothyroid E03.9 ; Restless leg G25.81 ; Fibromyalgia M79.7 ; Essential ( primary) hypertension I10 ; Vitamin D deficiency E55.9 ; Dyspepsia R10.13 ; Anemia in chronic kidney disease D63.1 ; Chronic kidney disease, unspecified N18.9 ; Coronary artery disease involving [place] coronary artery of [place] heart , angina presence unspecified I25.10 ; Screening breast examination Z12.39 and Low back pain M54.5 [facility] [address], [place] [address]- 3810 August, Generalized anxiety disorder F41.1 and Major depressive disorder, recurrent episode with anxious distress F33.9 [facility] [address], [place] [address]- 9645 August, Generalized anxiety disorder F41.1 and Major depressive disorder, recurrent episode with anxious distress F33.9 [facility] [address], [place] [address]- 5978 August, Fibromyalgia M79.7 [facility] [address] [place] [address] 16793- 7594 Jul, Generalized anxiety disorder F41.1 and Major depressive disorder, recurrent episode with anxious distress F33.9 [facility] [address], [place] [address]- 5503 Jul, Fibromyalgia M79.7 [facility] [id number] [place] [address] 06497- 6545 Jul, Generalized anxiety disorder F41.1 [facility] [id number] [place] [address] 69502- 1255 May, [facility] [id number] [place] [address] 65111- 8700 May, Hypothyroid E03.9 [place] [facility] [id number] [place] [address] 84909- 5222 May, Chronic kidney disease, stage 4 (severe) N18.4 ; Hypothyroid E03.9 ; Restless leg G25.81 ; Fibromyalgia M79.7 ; Essential ( primary) hypertension I10 ; Vitamin D deficiency E55.9 ; Dyspepsia R10.13 ; Acute non-recurrent maxillary sinusitis J01.00 ; Anemia in chronic kidney disease D63.1 ; Chronic kidney disease, unspecified N18.9 and Coronary artery disease involving [place] coronary artery of [place] heart, angina presence unspecified I25.10 [facility] [address] [place] [address] 06173- 3320 May, Vitamin D deficiency, unspecified E55.9 [facility] [address] [place] [address] 15313- 1221 May, Generalized anxiety disorder F41.1 and Major depressive disorder, recurrent episode with anxious distress F33.9 [facility] [address] [place] [address] 74164- 0954 Apr, Pain in right knee M25.561 and Pain in left knee M25.562 [facility] [address] [place] [address] 44746- 5573 Apr, [facility] [id number] [place] [address] 52909- 1464 Apr, [facility] [address] [place] [address] 22935- 5362 Apr, [facility] [id number] [place] [address] 04331- 3477 Mar, Generalized anxiety disorder F41.1 and Major depressive disorder, recurrent episode with anxious distress F33.9 [facility] [id number] [place] [address] 48140- 0108 Mar, Generalized anxiety disorder F41.1 and Major depressive disorder, recurrent episode with anxious distress F33.9 [facility] [id number] [place] [address] 83623- 0011 Mar, [facility] [id number] [place] [address] 93751- 9360 Mar, [facility] [id number] [place] [address] 34450- 3488 Mar, [facility] [id number] [place] [address] 80780- 1052 Mar, Asthma J45.909 and Fibromyalgia M79.7 [facility] [id number] [place] [address] 78884- 6179 Mar, Chronic kidney disease, stage 4 (severe) N18.4 ; Vitamin D deficiency E55.9 and Essential (primary) hypertension I10 [facility] [id number] [place] [address] 26887- 2552 Feb, [facility] [id number] [place] [address] 68684- 9336 Feb, Dysuria R30.0 ; Mixed stress and urge urinary incontinence N39.46 ; Fibromyalgia M79.7 and Chronic kidney disease, stage IV (severe) N18.4 [facility] [id number] [place] [address] 42435- 9164 Feb, Chronic kidney disease, stage 4 (severe) N18.4 [facility] [address] [place] [address]- 0025 Feb, Chronic kidney disease, stage 4 (severe) N18.4 [facility] [address] 16003- 7976 Feb, [facility] [id number] [place] [address] 55918- 0222 Feb, Vitamin D deficiency, unspecified E55.9 [facility] [id number] [place] [address] 04851- 0399 Jan, [facility] [id number] [place] [address] 29883- 6645 Jan, [facility] [id number] [place] [address] 05902- 4305 Dec, [facility] [id number] [place] [address] 28688- 6103 Dec, Chronic kidney disease, stage 4 (severe) N18.4 [facility] [id number] [place] [address] 61021- 4599 Dec, Dysthymic disorder F34.1 and Generalized anxiety disorder F41.1 [facility] [id number] [place] [address] 17016- 7240 Dec, [facility] [id number] [place] [address] 44700- 0159 Dec, [facility] [id number] [place] [address] 37824- 5659 Dec, Dysthymic disorder F34.1 and Generalized anxiety disorder F41.1 [facility] [id number] [place] [address] 03649- 0682 Dec, Dysuria R30.0 ; Chronic kidney disease, stage 4 (severe) N18.4 ; Hypertension I10 ; Dyspepsia R10.13 ; Yeast dermatitis B37.2 ; Palpitations R00.2 ; Hypothyroid E03.9 ; Functional 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 and Other seasonal allergic rhinitis J30.2 [facility] [address] 45260 -2023 Dec, [facility] [address] 08508 -5327 Nov, Dysuria R30.0 and Stress incontinence N39.3 [facility] [address] 67851- 9537 Nov, [facility] [address] 32738- 5522 Nov, [facility] [address] 93882- 6449 Nov, Osteoarthritis of knees, bilateral M17.0 [facility] [address] 77945- 9113 Nov, Dysthymic disorder F34.1 and Generalized anxiety disorder F41.1 [facility] [address] 13012- 1138 Nov, [facility] [address] 29748- 8425 Nov, [facility] [id number] [place] [address] 31979- 9918 Nov, Urgency of urination R39.15 [facility] [address] 00690- 7005 Nov, [facility] [id number] [place] [address] 35739- 1975 Nov, Chronic kidney disease, stage 4 (severe) N18.4 [facility] [address] 56044- 6508 Oct, Hypertension I10 ; Coronary artery disease involving [place] coronary artery of [place] heart, angina presence unspecified I25.10 ; Palpitations R00.2 ; Hypothyroid E03.9 ; Right foot pain M79.671 ; Functional 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 and Other seasonal allergic rhinitis J30.2 [place] [facility] [id number] [place] [address] 91623- 5951 Oct, Dysthymic disorder F34.1 and Generalized anxiety disorder F41.1 [facility] [facility] [id number] [place] [address] 83829- 1709 Sep, [facility] [address] 10134- 7239 Sep, [place] [facility] [id number] [place] [address] 75657- 9823 Sep, [facility] [address] 57923- 0924 Sep, [facility] [facility] [address] 82232- 4822 Sep, [facility] [id number] [place] [address] 49338- 8340 Sep, Dysthymic disorder F34.1 and Generalized anxiety disorder F41.1 [facility] [address] 76832- 8562 16 Sep, 2015 Asthma with acute exacerbation in adult J45.901 ; Dysuria R30.0 ; Chronic kidney disease, stage 4 (severe) N18.4 and History of anemia Z86.2 [facility] [facility] [id number] [place] [address] 87605- 7085 Sep, Generalized anxiety disorder F41.1 and Dysthymic disorder F34.1 [facility] [id number] [place] [address] 17298- 8214 August, Screening breast examination Z12.39 and Acute recurrent maxillary sinusitis J01.01 [facility] [facility] [id number] [place] [address] 66327- 6779 August, Osteoarthritis of knees, bilateral M17.0 [facility] [facility] [id number] [place] [address] 01125- 9794 August, Chronic kidney disease, stage 4 (severe) N18.4 ; Acute non- recurrent maxillary sinusitis J01.00 ; Urinary problem R39.89 ; Bowel habit changes R19.4 ; Functional 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 and History of colon polyps Z86.010 [place] [address] [place] [address] 40740- 2490 Jul, Dysthymic disorder F34.1 and Generalized anxiety disorder F41.1 [place] [facility] [id number] [place] [address] 49057- 1507 Jul, [facility] [facility] [id number] [place] [address] 84312- 6499 Jul, Dysthymic disorder F34.1 ; Generalized anxiety disorder F41.1 and 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 [place] [facility] [id number] [place] [address] [id number] Jul, [place] [id number] [place] [address] [phone] Jun, [place] [id number] [place] [address] [id number] [id number] 08 Jun, 2015 [place] [id number] [place] [address] [id number] 17 May, 2015 [place] [id number] [place] [address] [phone] May, Dysthymic disorder F34.1 and Generalized anxiety disorder F41.1 [place] [id number] [place] [address] 04501- 9596 Apr, Kidney disease N28.9 [place] [id number] [place] [address] 48467- 4842 Apr, Generalized anxiety disorder F41.1 and Dysthymic disorder F34.1 [place] [id number] [place] [address] [id number]- [phone] Apr, Chronic kidney disease, stage 4 (severe) N18.4 [place] [address] [address]- [address] Apr, Generalized anxiety disorder F41.1 ; Major depression, recurrent F33.9 and Sleep disturbance G47.9 [place] [address] 13235- 5440 Mar, Generalized anxiety disorder F41.1 and Dysthymic disorder F34.1 [place] [address] 87173- 0721 Mar, Generalized anxiety disorder F41.1 ; Dysthymic disorder F34.1 and Insomnia G47.00 [place] [address] 39573- 9839 Mar, [address] [address]- 2419 Mar, [place] [address] 62415- 3491 Mar, Osteoarthritis of knees, bilateral M17.[address] 46931- 4595 Mar, Hypertension I10 ; Hypothyroid E03.9 ; Dysthymic disorder F34.1 ; Chronic kidney disease, stage 4 (severe) N18.4 and Nausea & vomiting R11.2 [place] [address] 70973- 6017 Mar, Generalized anxiety disorder F41.1 ; Dysthymic disorder F34.1 and Insomnia G47.[address] 08628- 9122 Mar, Dehydration E86.0 ; Chronic kidney disease, stage 4 (severe ) N18.4 and Nausea & vomiting R11.2 [facility] [address] 6[address] -6089 Mar, Gastroenteritis K52.9 [place] [address] [place] [id number] [place] [address] 88262- 4120 Mar, [place] [address] [place] [id number] [place] [address] 10821- 6656 Mar, [place] [id number] [place] [address] 12006- 6986 Feb, Dysthymic disorder F34.1 and Generalized anxiety disorder F41.1 [place] [address] [place] [id number] [place] [address] 69446- 6786 Jan, UTI (urinary tract infection) N39.0 ; Asthma J45.909 ; Coronary artery disease involving [place] coronary artery of [place] heart, angina presence unspecified I25.10 ; Hypertension I10 ; Hypothyroid E03.9 ; Vitamin D deficiency E55.9 ; Insomnia G47.00 ; Palpitations R00.2 ; Depressed F32.9 ; Restless leg G25.81 and Anxiety F41.9 [place] [id number] [place] [address] 71160- 9188 Jan, Dysthymic disorder F34.1 and Generalized anxiety disorder F41.1 [place] [id number] [place] [address] 40333- 9119 Jan, [place] [id number] [place] [address] 40497- 3950 Dec, [place] [id number] [place] [address] 53922- 3759 28 Dec, 2014 Alkalosis 276.3 ; Chronic kidney disease, 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.4 ; Hyperpotassemia 276.7 ; Secondary hyperparathyroidism, renal 588.81 ; Proteinuria 791.0 ; Unspecified vitamin D deficiency 268.9 ; Anemia in chronic kidney disease 285.21 ; Other and unspecified hyperlipidemia 272.4 ; Hypertension, essential, benign 401.1 and Chronic kidney disease (CKD), stage III (moderate) 585.3 [place] [id number] [place] [address] 46850- 9897 Dec, [place] [id number] [place] [address] 54456- 7987 Dec, Depressive disorder, not elsewhere classified 311 and Generalized anxiety disorder 300.02 [place] [id number] [place] [address] 21716- 6467 Dec, [place] [id number] [place] [address] 97014- 4612 Dec, [place] [address] [place] [id number] [place] [address] 04159- 1355 Nov, Depressive disorder, not elsewhere classified 311 and Generalized anxiety disorder 300.02 [place] [id number] [place] [address] 38662- 4051 Nov, Arthritis of both knees 716.[address] 41672- 8195 Nov, PAF (paroxysmal atrial fibrillation) 427.31 ; CAD (coronary artery disease) 414.00 ; Chest pain 786.50 and Chronic kidney disease (CKD) stage G4/A1, severely decreased glomerular filtration rate (GFR) between 15-29 mL/min/1.73 square meter and albuminuria creatinine ratio less than 30 mg/g 585.[id number] [place] [address] 30601- 1995 Oct, Coronary atherosclerosis of unspecified type of vessel, [place] or graft 414.00 ; Chronic kidney disease, 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.4 ; Hypertension 401.9 and Edema 782.[id number] [place] [address] 51171- 4838 Oct, Depressive disorder, not elsewhere classified 311 and Generalized anxiety disorder 300.02 [place] [address] [place] [id number] [place] [address] 53300- 3341 Oct, Depressive disorder, not elsewhere classified 311 and Generalized anxiety disorder 300.02 [place] [id number] [place] [address] 35780- 4697 Oct, [facility] [address] [place] [id number] [place] [address] 73003- 6928 Oct, [facility] [address] 93297- 9064 Sep, [facility] [address] [place] [id number] [place] [address] 12117- 9200 Sep, Chronic kidney disease, 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.4 [facility] [address] 06445- 5132 Sep, [facility] [address] 48899- 6255 Sep, Coronary atherosclerosis of unspecified type of vessel, [place] or graft 414.00 ; Hypertension 401.9 ; Edema 782.3 and Hypothyroidism 244.9 [place] [address] 25917- 5441 Sep, Coronary atherosclerosis of unspecified type of vessel, [place] or graft 414.00 ; Hypertension 401.9 ; Fibromyalgia 729.1 ; Edema 782.3 ; Hypothyroidism 244.9 and Anemia 285.9 [facility] [address] [place] [id number] [place] [address] 72847- 9561 Sep, Anxiety disorder, unspecified 300.00 and Depressive disorder , not elsewhere classified 311 [facility] [address] [place] [id number] [place] [address] 16141- 2422 Sep, [facility] [address] [place] [id number] [place] [address] 41347- 0444 August, Generalized anxiety disorder 300.02 [facility] [address] 28141- 6276 August, Closed fracture of lateral malleolus 824.2 [facility] [address] [place] [id number] [place] [address] 66091- 9997 Jul, [facility] [address] 38251- 3310 Jul, [facility] [place] [facility] [address] [id number] [place] [address]- 2448 Jun, [facility] [place] [facility] [address] [id number] [place] [address]- 7707 Jun, [facility] [place] [facility] [address] [facility] [id number] [place] [address]- 3248 Jun, [facility] [place] [facility] [address] [facility] [id number] [place] [address]- 1258 Jun, [facility] [place] [facility] [address] [id number] [place] [address]- 9440 Jun, [facility] [place] [facility] [address] [id number] [place] [address]- 9775 Jun, [facility] [place] [facility] [address] [facility] [id number] [place] [address]- 4869 19 May, 2014 [facility] [place] [facility] [address] [facility] [id number] [place] [address]- 6622 19 May, 2014 [facility] [place] [facility] [address] [facility] [id number] [place] [address]- 9057 18 May, 2014 [facility] [place] [facility] [address] [facility] [id number] [place] [address]- 1039 18 May, 2014 [facility] [place] [facility] [address] [facility] [id number] [place] [address]- 5863 16 May, 2014 [facility] [place] [facility] [address] [facility] [id number], [place] [address]- 0527 16 May, 2014 [facility] [place] [facility] [address] [facility] [id number] [place] [address]- 0232 13 May, 2014 [facility] [place] [facility] [address] [facility] [id number] [place] [address]- 4205 13 May, 2014 [facility] [place] [facility] [address] [facility] [id number] [place] [address]- 3561 10 May, 2014 [facility] [place] [facility] [address] [id number] [place] [address]- 3978 May, [facility] [place] [facility] [address] [id number] [place] [address]- 4125 Apr, [facility] [place] [facility] [address] [id number] [place] [address]- 4373 Apr, [facility] [place] [facility] [address] [id number] [place] [address]- 1868 Mar, [facility] [place] [facility] [address] [id number] [place] [address]- 3272 Mar, [facility] [place] [facility] [address] [id number] [place] [address]- 5730 Mar, [facility] [place] [facility] [address] [id number] [place] [address]- 8020 Mar, [facility] [place] [facility] [address] [id number] [place] [address]- 6037 Mar, [facility] [place] [facility] [address] [id number] [place] [address]- 3894 Mar, [facility] [place] [facility] [address] [id number] [place] [address]- 3878 Mar, [facility] [place] [facility] [address] [id number] [place] [address]- 7525 Feb, [facility] [place] [facility] [address] [id number] [place] [address]- 0355 Feb, [facility] [place] [facility] [address] [id number] [place] [address]- 0292 Feb, [facility] [place] [facility] [address] [id number] [place] [address]- 8279 Jan, [facility] [place] [facility] [address] [id number] [place] [address]- 2751 Jan, [facility] [place] [facility] [address] [id number] [place] [address]- 2138 Jan, [facility] [place] [facility] [address] [id number] [place] [address]- 3127 Jan, [facility] [place] [facility] [address] [id number] [place] [address]- 4584 Jan, [facility] [place] [facility] [address] [id number] [place] 4093 Jan, [facility] [place] [facility] [address] [id number] [place] [address]- 3819 Jan, [facility] [place] [facility] [address] [id number] [place] [address]- 9584 Jan, [facility] [place] [facility] [address] [id number] [place] [address]- 9297 Jan, [facility] [place] [facility] [address] [id number] [place] [address]- 8521 Jan, [facility] [place] [facility] [address] [id number] [place] [address]- 6174 Nov, [facility] [place] [facility] [address] [id number] [place] [address]- 6619 Nov, [facility] [place] [facility] [address] [id number] [place] [address]- 7593 Nov, [facility] [place] [facility] [address] [id number] [place] [address]- 1496 Oct, [facility] [place] [facility] [address] [id number], [place] [address]- 1462 Oct, [facility] [place] [facility] [address] [id number] [place] [address]- 3960 Oct, [facility] [place] [facility] [address] [id number] [place] [address]- 9560 Oct, [facility] [place] [facility] [address] [id number] [place] [address]- 5788 Oct, [facility] [place] [facility] [address] [id number] [place] [address]- 0550 Oct, [facility] [place] [facility] [address] [id number] [place] [address]- 9836 Oct, [facility] [place] [facility] [address] [id number] [place] [address]- 3293 Oct, [facility] [place] [facility] [address] [id number] [place] [address]- 9417 Oct, [facility] [place] [facility] [address] [id number] [place] [address]- 4581 Sep, [facility] [place] [facility] [address] [id number] [place] [address]- 4623 Sep, [facility] [place] [facility] [address] [id number] [place] [address]- 5882 Sep, [facility] [place] [facility] [address] [id number] [place] [address]- 5010 Sep, [facility] [place] [facility] [address] [id number] [place] [address]- 8102 Sep, [facility] [place] [facility] [address] [id number] [place] [address]- 1272 Sep, [facility] [place] [facility] [address] [id number] [place] [address]- 1471 Sep, [facility] [place] [facility] [address] [id number] [place] [address]- 5139 Sep, [facility] [place] [facility] [address] [id number] [place] [address]- 3400 Sep, [facility] [place] [facility] [address] [id number] [place] [address]- 2121 August, [facility] [place] [facility] [address] [id number] [place] [address]- 1018 August, [facility] [place] [facility] [address] [id number] [place] 1404 August, [facility] [place] [facility] [address] [id number] [place] [address]- 5730 August, [facility] [place] [facility] [address] [id number] [place] [address]- 2877 August, [facility] [place] [facility] [address] [id number] [place] [address]- 9270 August, [facility] [place] [facility] [address] [id number] [place] [address]- 8321 Jul, [facility] [place] [facility] [address] [id number] [place] [address]- 0551 Jul, [facility] [place] [facility] [address] [id number] [place] [address]- 4846 Jul, [facility] [place] [facility] [address] [id number] [place] [address]- 0749 Jul, [facility] [place] [facility] [address] [id number] [place] [address]- 8270 Jul, [facility] [place] [facility] [address] [id number] [place] [address]- 5123 Jul, [facility] [place] [facility] [address] [id number] [place] [address]- 3101 Jun, [facility] [place] [facility] [address] [id number] [place] [address]- 1227 Jun, [facility] [place] [facility] [address] [id number], [place] [address]- 4590 May, [facility] [place] [facility] [address] [id number] [place] [address]- 7327 May, [facility] [place] [facility] [address] [id number] [place] [address]- 6397 May, [facility] [place] [facility] [address] [id number] [place] [address]- 4618 May, [facility] [place] [facility] [address] [id number], [place] [address]- 9813 Apr, [facility] [address] [id number] [place] [address]- 2265 Apr, [facility] [place] [facility] [address] [facility] [id number] [place] [address]- 4301 Mar, [facility] [address] [facility] [id number] [place] [address]- 2895 Mar, [facility] [place] [facility] [address] [facility] [id number] [place] [address]- 6223 Mar, [facility] [address] [facility] [id number] [place] [address]- 1117 Mar, [facility] [place] [facility] [address] [facility] [id number] [place] [address]- 3013 Mar, [facility] [address], [place] [address]- 4681 Mar, [facility] [place] [facility] [address] [facility] [id number] [place] [address]- 3362 Feb, [facility] [place] [facility] [address] [place] [id number] [place] [address]- 2620 Feb, [facility] [place] [facility] [address] [id number], [place] [address]- 6347 Feb, [facility] [place] [facility] [address] [facility] [id number], [place] [address]- 2632 Feb, [facility] [place] [facility] [address] [facility] [id number], [place] [address]- 6258 Feb, [facility] [place] [facility] [address] [facility] [id number], [place] [address]- 9081 Feb, [facility] [place] [facility] [address] [facility] [id number], [place] [address]- 2917 Jan, [facility] [place] [facility] [address] [id number], [place] [address]- 4366 Jan, [facility] [place] [facility] [address] [id number] [place] [address]- 9762 10 Jan, 2013 [facility] [place] [facility] [address] [id number] [place] [address]- 1527 Jan, [facility] [place] [facility] [address] [id number] [place] [address] 2543 08 Jan, 2013 [facility] [place] [facility] [address] [id number] [place] [address]- 2287 Jan, [facility] [place] [facility] [address] [id number] [place] [address]- 5668 Dec, [facility] [place] [facility] [address] [id number] [place] [address]- 7345 Dec, [facility] [place] [facility] [address] [id number] [place] [address]- 9873 Nov, [facility] [place] [facility] [address] [id number] [place] [address]- 5906 Nov, [facility] [place] [facility] [address] [id number] [place] [address]- 4844 Oct, [facility] [place] [facility] [address] [id number] [place] [address]- 9870 Oct, [facility] [place] [facility] [address] [id number] [place] [address]- 1148 Oct, [facility] [place] [facility] [address] [id number] [place] [address]- 3511 Oct, [facility] [place] [facility] [address] [id number] [place] [address]- 2238 Oct, [facility] [place] [facility] [address] [id number] [place] [address]- 6591 Oct, [facility] [place] [facility] [address] [id number] [place] [address]- 1657 Sep, [facility] [place] [facility] [address] [id number] [place] [address]- 9822 Sep, [facility] [address] [id number] [place] [address]- 8016 Sep, [facility] [address] [id number] [place] [address]- 0291 Sep, [facility] [address] [id number] [place] [address]- 0820 August, [facility] [address] [id number] [place] [address]- 4602 August, [facility] [address] [id number] [place] [address]- 2583 August, [facility] [address] [id number] [place] [address]- 8004 August, [facility] [address] [id number] [place] [address]- 1617 August, [facility] [address] [id number] [place] [address]- 1560 Jul, [facility] [address] [id number] [place] [address]- 5032 Jul, [facility] [address] [id number] [place] [address]- 0877 Jul, [facility] [address] [id number] [place] [address]- 7629 Jul, [facility] [place] [facility] [address] [id number], [place] [address]- 0912 Jul, [facility] [place] [facility] [address] [id number] [place] [address]- 9599 Jul, [facility] [place] [facility] [address] [id number] [place] [address]- 5842 Jul, [facility] [place] [facility] [address] [id number] [place] [address]- 0016 Jul, [facility] [place] [facility] [address] [id number] [place] [address]- 3415 Jul, [facility] [address] [facility] [id number] [place] [address]- 5319 Jul, [facility] [address] [facility] [id number] [id number] Jun, [facility] [address] [id number] [place] [address]- 8479 Jun, [facility] [address] [facility] [id number] [place] [address]- 1436 Jun, [facility] [address] [id number] [place] [address]- 8900 Jun, [facility] [address] [id number] [place] [address]- 4325 Jun, [facility] [address] [id number] [place] [address]- 3863 May, [facility] [address] [id number] [place] [address]- 2494 May, [facility] [address] [id number] [place] [address]- 9561 May, [facility] [address] [id number] [place] [address]- 6272 Apr, [facility] [address] [id number] [place] [address]- 7563 Apr, [facility] [address] [id number], [place] [address]- 5455 Apr, [facility] [address] [facility] [id number], [place] [address] Apr, [facility] [address] [facility] [id number], [place] [address] Apr, [facility] [address] [id number], [place] [address] Apr, [facility] [place] [facility] [address] [id number] [place] [address] Mar, [facility] [place] [facility] [address] [id number] [place] [address] Mar, [facility] [place] [facility] [address] [id number] [place] [address] Mar, [facility] [place] [facility] [address] [id number] [place] [address] Mar, [facility] [place] [facility] [address] [id number] [place] [address] Feb, [facility] [place] [facility] [address] [id number] [place] [address] Feb, [facility] [place] [facility] [address] [id number] [place] [address]- [address]34 Feb, [facility] [place] [facility] [address] [id number] [place] [address]- 39[address] Feb, [facility] [place] [facility] [address] [id number] [place] [address]- [address] Feb, [facility] [place] [facility] [address] [id number] [place] [address]- 1710 Feb, [facility] [place] [facility] [address] [id number] [place] [address]- [address] Feb, [facility] [place] [facility] [address] [id number] [place] [address]- [address]116 Feb, [facility] [place] [facility] [address] [id number] [place] [address]- [address]84 Feb, [facility] [place] [facility] [address] [id number] [place] [address]- 32[address] Feb, [facility] [place] [facility] [address] [id number] [place] [address]- [address]167 Feb, [facility] [place] [facility] [address] [id number] [place] [address]- [address] Feb, [facility] [place] [facility] [address] [id number] [place] [address]- [address]578 Feb, [facility] [place] [facility] [address] [id number], [place] [address] Feb, [facility] [place] [facility] [address] [facility] [id number] [place] [address]- [address]221 Feb, [facility] [place] [facility] [address] [id number], [place] [address] Feb, [facility] [place] [facility] [address] [id number] [place] [address]- 8149 Jan, [facility] [place] [facility] [address] [id number], [place] [address] Jan, [facility] [place] [facility] [address] [id number], [place] [address] Jan, [facility] [place] [facility] [address] [id number], [place] [address]- [address] Jan, [facility] [place] [facility] [address] [id number], [place] [address] 30 Jan, 2012 [facility] [place] [facility] [address] [facility] [id number], [place] [address]- [address] Jan, [facility] [place] [facility] [address] [id number], [place] [address]- [address] 25 Jan, 2012 [facility] [place] [facility] [address] [id number], [place] [address] 16 Jan, 2012 [facility] [place] [facility] [address] [id number], [place] [address]- [address] 16 Jan, 2012 [facility] [place] [facility] [address] [facility] [id number][place] [address] 15 Jan, 2012 [facility] [place] [facility] [address] [facility] [id number], [place] [address] 15 Jan, 2012 [facility] [place] [facility] [address] [id number] [place] [address]- [address] 01 Jan, 2012 [facility] [address] [id number] [place] [address] 2546 26 Sep, 2011 [facility] [place] [facility] [address] [id number] [place] [address] 2546 26 Sep, 2011 [facility] [address] [id number] [place] [address] 2546 24 Sep, 2011 [facility] [place] [facility] [address] [id number] [place] [address] 2546 23 Sep, 2011 [facility] [place] [facility] [address] [id number] [place] [address]- [address]246 22 Sep, 2011 [facility] [place] [facility] [address] [id number] [place] [address]- [address]66 21 Dec, 2011 [facility] [address] [id number] [place] [address] 2546 20 Dec, 2011 [facility] [address] [id number] [place] [address]- [address]49 20 Sep, 2011 [facility] [place] [facility] [address] [id number] [place] [address] 2545 07 Sep, 2011 [facility] [address] [id number] [place] [address] 2544 06 Sep, 2011 [facility] [place] [facility] [address] [id number] [place] [address] 2546 06 Sep, 2011 [facility] [place] [facility] [address] [id number] [place] [address] 2541 05 Sep, 2011 [facility] [place] [facility] [address] [id number] [place] [address] 2540 23 Nov, 2011 [facility] [place] [facility] [address] [id number] [place] [address]- [address]46 17 Nov, 2011 [facility] [place] [facility] [address] [id number] [place] [address]- [address]244 Nov, [facility] [place] [facility] [address] [id number] [place] [address]- 2097 Nov, [facility] [place] [facility] [address] [id number] [place] [address]- [address] Nov, [facility] [place] [facility] [address] [id number] [place] [address]- 7814 Nov, [facility] [place] [facility] [address] [id number] [place] [address]- [address]646 Nov, [facility] [place] [facility] [address] [id number] [place] [address] Nov, [facility] [place] [facility] [address] [id number] [place] [address] Oct, [facility] [place] [facility] [address] [id number] [place] [address] Oct, [facility] [place] [facility] [address] [id number] [place] [address] Oct, [facility] [place] [facility] [address] [id number] [place] [address] Oct, [facility] [place] [facility] [address] [id number] [place] [address] Oct, [facility] [place] [facility] [address] [id number] [place] [address] Oct, [facility] [place] [facility] [address] [id number] [place] [address] Oct, [facility] [place] [facility] [address] [id number] [place] [address] Sep, [facility] [place] [facility] [address] [id number] [place] [address] Sep, [facility] [place] [facility] [address] [id number] [place] [address] August, [facility] [place] [facility] [address] [id number] [place] [address] August, [facility] [address] [id number] [place] [address] August, [facility] [place] [facility] [address] [id number] [place] [address] August, [facility] [place] [facility] [address] [id number] [place] [address] Jul, [facility] [place] [facility] [address] [id number] [place] [address] Jul, [facility] [place] [facility] [address] [id number] [place] [address] Jul, [facility] [place] [facility] [address] [id number] [place] [address] Jul, [facility] [address] [id number] [place] [address] Jul, [facility] [place] [facility] [address] [id number] [place] [address] Jul, [facility] [place] [facility] [address] [id number] [place] [address] Jul, [facility] [place] [facility] [address] [id number] [place] [address] Jul, [facility] [place] [facility] [address] [id number] [place] [address] Jul, [facility] [place] [facility] [address] [id number] [place] [address]- [address] 23 Jun, 2011 [facility] [place] [facility] [address] [id number] [place] [address] 19 Jun, 2011 [facility] [place] [facility] [address] [id number] [place] [address] 15 Jun, 2011 [facility] [place] [facility] [address] [id number] [place] [address] 14 Jun, 2011 [facility] [place] [facility] [address] [id number] [place] [address] Jun, [facility] [address] [id number] [place] [address] Jun, [facility] [place] [facility] [address] [id number] [place] [address] Jun, [facility] [address] [id number] [place] [address] May, [facility] [place] [facility] [address] [id number] [place] [address] May, [facility] [place] [facility] [address] [id number] [place] [address] May, [facility] [address] [id number] [place] [address] May, [facility] [address] [id number] [place] [address] May, [facility] [address] [id number] [place] [address] Apr, [facility] [address] [id number] [place] [address] Apr, [facility] [place] [facility] [address] [id number] [place] [address] Apr, [facility] [address] [id number] [place] [address] Apr, [facility] [place] [facility] [address] [id number] [place] [address] Apr, [facility] [place] [facility] [address] [id number] [place] [address] Mar, [facility] [place] [facility] [address] [id number] [place] [address] Mar, [facility] [place] [facility] [address] [id number] [place] [address] 39[address] Mar, [facility] [place] [facility] [address] [id number] [place] [address] Mar, [facility] [place] [facility] [address] [id number] [place] [address]127 Mar, [facility] [place] [facility] [address] [id number] [place] [address]89 Mar, [facility] [place] [facility] [address] [id number] [place] [address] 8427 Mar, [facility] [place] [facility] [address] [id number] [place] [address]- [address] Feb, [facility] [place] [facility] [address] [id number] [place] [address] Feb, [facility] [place] [facility] [address] [id number] [place] [address] Feb, [facility] [place] [facility] [address] [id number] [place] [address]- [address] Feb, [facility] [place] [facility] [address] [id number] [place] [address]- [address] Jan, [facility] [place] [facility] [address] [id number] [place] [address]- [address] Jan, [facility] [place] [facility] [address] [id number], [place] [address] Jan, [facility] [place] [facility] [address] [id number] [place] [address] Jan, [facility] [place] [facility] [address] [id number] [place] [address] Nov, [facility] [place] [facility] [address] [id number] [place] [address]- [address] Mar, [facility] [place] [facility] [address] [id number] [place] [address]- [address] Mar, [facility] [place] [facility] [address] [id number] [address] Mar, [facility] [address] [id number] [address] Mar, [facility] [id number], [place] [address] Mar, [facility] [id number], [place] [address] Mar, [facility] [id number], [place] [address] Feb, [facility] [id number] [place] [address] Feb, [facility] [id number] [place] [address] Jan, [facility] [id number], [place] [address] Jan, [facility] [address] [id number], [place] [address] Jan, IMMUNIZATIONS No Known Immunizations SOCIAL HISTORY Never Assessed REASON FOR VISIT eye exam PLAN OF CARE VITAL SIGNS MEDICATIONS Unknown [...] & 2007 Surgical History Bladder surgery [facility] 03/2016 Hospitalization History Surgeries Only Hospitalization History 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
--- OUTSIDE RECORDS SUMMARY | 2018-05-29 08:03 | XMS REPORT ---
Author Author ISABEL MAE [facility] Address [address] [place] [address] Care Team Providers Care Field Service Representative Name Role Phone ISABEL MAE Unavailable PROBLEMS Type Condition ICD9-CM Code QGC38-AM Code Onset Dates Condition Status SNOMED Code Problem Long-term use of high-risk medication Z79.899 Active 437586973 Problem Abnormal chest CT R93.8 Active 038894624 Problem Low back pain M54.5 Active 442948927 Problem Generalized anxiety disorder F41.1 Active 93770852 Problem Dysthymic disorder F34.1 Active 56607906 Problem Coronary artery disease involving minto coronary artery of minto heart, angina presence unspecified I25.10 Active 9305093574456 Problem Depressed F32.9 Active 84796598 Problem Fibromyalgia M79.7 Active 173794068 Problem Hypothyroid E03.9 Active 06719229 Problem Essential (primary) hypertension I10 Active 12227602 Problem Insomnia G47.00 Active 245526475 Problem Vitamin D deficiency E55.9 Active 47818199 Problem Anemia in chronic kidney disease D63.1 Active 071254826476543 Problem Chronic kidney disease, unspecified N18.9 Active 381860542 Problem Body mass index (BMI) of 40.0-44.9 in adult Z68.41 Active 512729066 Problem Stage 3 chronic kidney disease N18.3 Active 939573002 Problem Restless leg G25.81 Active 90426861 Problem Palpitations R00.2 Active 54557313 Problem Asthma J45.909 Active 896107185 Problem Primary osteoarthritis of left knee M17.12 Active 648907367 Problem Bipolar disorder, current episode manic without psychotic features F31.10 Active 437952406 Problem Mood disorder F39 Active 42242738 Problem Degenerative tear of medial meniscus of left knee M23.204 Active 005865483 Problem History of colon polyps Z86.010 Active 847264356 Problem Asthma with acute exacerbation in adult J45.901 Active 764863844 Problem Chronic kidney disease, stage 4 (severe) N18.4 Active 678906442 Problem Functional 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 Active 37964114 Problem Hypokalemia E87.6 Active 02743111 Problem Mixed stress and urge urinary incontinence N39.46 Active 814017625 Problem History of anemia Z86.2 Active 684112008 Problem Other seasonal allergic rhinitis J30.2 Active 964962751 ALLERGIES No Information ENCOUNTERS Encounter Location Date Diagnosis [facility] [id number] [place] [address] 62904- 2980 Oct, [facility] [address] 42696- 0410 Sep, [facility] [address] 28275- 7158 August, Fibromyalgia M79.7 [facility] [address] 48763- 7959 August, [facility] [address] 01396- 3496 August, [facility] [address] 63628- 0877 August, Ab[address] chest [address] R93.8 [facility] [id number] [place] [address] 63394- 2031 August, Generalized anxiety disorder F41.1 and Major depressive disorder, recurrent episode with anxious distress F33.9 [facility] [id number] [place] [address] 88559- 4086 August, Abnormal chest CT R93.8 [facility] [id number] [place] [address] 27596- 0286 Jul, [facility] [id number] [place] [address] 99497- 9524 Jul, Chronic kidney disease, stage 4 (severe) N18.4 [facility] [address] 46901- 2344 Jul, [facility] [id number] [place] [address] 39724- 0824 Jul, Restless leg G25.81 ; Mixed stress and urge urinary incontinence N39.46 and Fibromyalgia M79.7 [facility] [id number] [place] [address] 30279- 8324 Jul, Chronic kidney disease, stage 4 (severe) N18.4 [facility] [id number] [place] [address] 23521- 2279 Jun, Orthostatic hypotension I95.1 ; Chronic kidney disease, stage 4 (severe) N18.4 ; Chest wall discomfort R07.89 and Body mass index (BMI) of 40.0-44.9 in adult Z68.41 [facility] [id number] [place] [address] 83358- 7181 Jun, [facility] [id number] [place] [address] 80773- 2172 Jun, Orthostatic hypotension I95.1 [facility] [id number] [place] [address] 02166- 5196 Jun, [facility]ALK IN [facility] [id number] [place] [address] 24976 -6549 Jun, Orthostatic hypotension I95.1 ; Dysuria R30.0 and Acute cystitis without hematuria N30.00 [facility] [id number] [place] [address] 96076- 1863 Jun, [facility] [id number] [place] [address] 19487- 3654 Jun, Chronic kidney disease, stage 4 (severe) N18.4 [facility] [id number] [place] [address] 82229- 2756 Jun, Fibromyalgia M79.7 [facility] [id number] [place] [address] 37427- 0482 Jun, [facility] [address] [address] 2606 Jun, [facility] [id number] [place] [address] 40210- [address] May, [address] R93.8 and Stage 3 chronic kidney disease N18.3 [facility] [id number] [place] [address] 41701- 0566 May, Chronic kidney disease, stage 4 (severe) N18.4 [facility] [id number] [place] [address] 36460- 6842 May, Chronic kidney disease, stage 4 (severe) N18.4 [facility] [id number] [place] [address] 71254- [address] May, [address] R93.8 [facility] [id number] [place] [address] 95435- 6156 May, [facility] [id number] [place] [address] 44215- 2642 May, [facility] [id number] [place] [address] 68863- 1476 May, Generalized anxiety disorder F41.1 and Major depressive disorder, recurrent episode with anxious distress F33.9 [facility] [address] [place] [address] 37341- 4301 May, Mood disorder F39 [facility] [address] [address]- 3539 Apr, [facility] [address] [place] [address] 21181- 0050 Apr, Infected skin lesion L08.9 and Muscle strain of right shoulder region, initial encounter S46.911A [facility] [address] [address]- 3508 Apr, Generalized anxiety disorder F41.1 and Major depressive disorder, recurrent episode with anxious distress F33.9 [facility] [address] [address]- 7485 Apr, [facility] [id number] [place] [address] 55509- 6537 Apr, Recent urinary tract infection Z87.440 and Hypothyroid E03.9 [facility] [id number] [place] [address] 04923- 6011 Apr, Generalized anxiety disorder F41.1 and Major depressive disorder, recurrent episode with anxious distress F33.9 [facility] [id number] [place] [address] 67416- 8377 Apr, Recent urinary tract infection Z87.440 [facility] [id number] [place] [address] 95551- 3072 Mar, [facility] WALK IN [facility] [id number] [place] [address] 59575 -8550 Mar, Dysuria R30.0 ; Acute cystitis without hematuria N30.00 and BMI 40.0-44.9, adult Z68.41 [facility] [id number] [place] [address] 98456- 9424 Mar, [facility] [id number] [place] [address] 66004- 7995 Mar, [facility] [id number] [place] [address] 93205- 8932 Mar, Generalized anxiety disorder F41.1 and Major depressive disorder, recurrent episode with anxious distress F33.9 [facility] [id number] [place] [address] 16095- 8058 Feb, Conjunctivitis, bacterial H10.9 [facility] [id number] [place] [address] 82525- 2256 Feb, [facility] [id number] [place] [address] 90568 -3195 Feb, Conjunctivitis, bacterial H10.9 [facility] [id number] [place] [address] 26161- 9284 Feb, [facility] [id number] [place] [address] 76223 -6237 Feb, Dysuria R30.0 ; Acute cystitis N30.00 and BMI 40.0-44.9, adult Z68.41 [facility] [address] 52350- 8079 Feb, [facility] [address] 82745- 4186 Feb, Generalized anxiety disorder F41.1 and Major depressive disorder, recurrent episode with anxious distress F33.9 [facility] [id number] [place] [address] 60502- 6814 Feb, Mood disorder F39 and BMI 40.0-44.9, adult Z68.41 [facility] [id number] [place] [address] 40758- 2856 Jan, [facility] [address] 54567- 1746 Jan, [facility] [id number] [place] [address] 25864- 3695 Jan, Hypothyroid E03.9 [facility] [id number] [place] [address] 78515- 4446 Jan, [facility] [id number] [place] [address] 31581- 1640 Jan, Chronic kidney disease, unspecified N18.9 ; Hypokalemia E87.6 ; Essential (primary) hypertension I10 ; Fibromyalgia M79.7 ; Coronary artery disease involving minto coronary artery of minto heart, angina presence unspecified I25.10 ; Hypothyroid E03.9 and Encounter for immunization Z23 [facility] [address] 25309- 2834 Jan, Hypothyroid E03.9 [facility] [id number] [place] [address] 50183- 2333 02 Jan, 2017 [facility] [id number] [place] [address] 19057- 3970 28 Dec, 2016 Vitamin D deficiency E55.9 [facility] [id number] [place] [address] 49906- 1025 28 Dec, 2016 Primary osteoarthritis of left knee M17.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 [facility] [id number] [place] [address] 21686- 6942 19 Dec, 2016 Fibromyalgia M79.7 [facility] [id number] [place] [address] 29424- 4438 18 Dec, 2016 Mood disorder F39 [facility] [id number] [place] [address] 05994- 5604 13 Dec, 2016 [facility] [id number] [place] [address] 27956- 2547 13 Dec, 2016 Generalized anxiety disorder F41.1 and Major depressive disorder, recurrent episode with anxious distress F33.9 [facility] [id number] [place] [address] 47626- 0319 11 Dec, 2016 [facility] [id number] [place] [address] 69790- 2166 08 Dec, 2016 Streptococcal meningitis G00.2 [facility] [id number] [place] [address] 82678- 2542 07 Dec, 2016 Streptococcal meningitis G00.2 [facility] [id number] [place] [address] 15866- 3707 07 Dec, 2016 [facility] [id number] [place] [address] 22398- 2544 06 Dec, 2016 Streptococcal meningitis G00.2 [facility] [id number] [place] [address] 36965786- 5501 Dec, [facility] [id number] [place] [address] 41207- 2797 Dec, Major depressive disorder, recurrent episode with anxious distress F33.9 [facility] [id number] [place] [address] 56735- 9895 Nov, Fever, unspecified fever cause R50.9 [facility] [id number] [place] [address] 09000- 1215 Nov, [facility] [id number] [place] [address] 30055- 5073 Nov, Hypothyroid E03.9 [facility] [id number] [place] [address] 97071- 3280 Nov, Generalized anxiety disorder F41.1 and Major depressive disorder, recurrent episode with anxious distress F33.9 [facility] [id number] [place] [address] 29178- 2756 Nov, [facility] [id number] [place] [address] [id number] Oct, Dental examination Z01.20 [facility] [id number] [place] [address] 53309- 5873 Oct, Generalized anxiety disorder F41.1 and Major depressive disorder, recurrent episode with anxious distress F33.9 [facility] [id number] [place] [address] 68753- 5236 Oct, Chronic kidney disease, stage 4 (severe) N18.4 [facility] [id number] [place] [address] 53483- 4352 Oct, [facility] [id number] [place] [address] 14042- 1329 Oct, Fibromyalgia M79.7 [facility] [id number] [place] [address] 74866- 1428 Oct, [facility] [id number] [place] [address] 80814- 6465 Oct, Generalized anxiety disorder F41.1 ; Major depressive disorder, recurrent episode with anxious distress F33.9 and Bipolar disorder, current episode manic without psychotic features F31.10 [facility] [address], [place] [address]- 5451 Sep, [facility] [id number] [place] [address] 90348- 9693 Sep, [facility] [id number] [place] [address] 59446- 7810 Sep, Vitamin D deficiency E55.9 [place] [id number] [place] [address] 86141- 8184 Sep, Vitamin D deficiency E55.9 [facility] [id number] [place] [address] 21686- 9966 Sep, [facility] [id number] [place] [address] 37993- 2939 Sep, Chronic kidney disease, stage 4 (severe) [...] examination Z12.39 and Low back pain M54.5 [facility] [address] [place] [address] 03497- 6653 August, Generalized anxiety disorder F41.1 and Major depressive disorder, recurrent episode with anxious distress F33.9 [facility] [id number] [place] [address] 42978- 5792 August, Generalized anxiety disorder F41.1 and Major depressive disorder, recurrent episode with anxious distress F33.9 [facility] [address] [place] [address] 12025- 5236 August, Fibromyalgia M79.7 [facility] [address], [place] [address]- 4502 Jul, Generalized anxiety disorder F41.1 and Major depressive disorder, recurrent episode with anxious distress F33.9 [facility] [address], [place] [address]- 7244 Jul, Fibromyalgia M79.7 [facility] [id number] [place] [address] 53731- 8192 Jul, Generalized anxiety disorder F41.1 [facility] [id number] [place] [address] 82384- 3720 May, [facility] [id number] [place] [address] 04729- 8625 May, Hypothyroid E03.9 [facility] [id number] [place] [address] 85217- 7473 May, Chronic kidney disease, stage 4 (severe) [...] of minto heart, angina presence unspecified I25.10 [facility] [address], [place] [address]- 4154 May, Vitamin D deficiency, unspecified E55.9 [facility] [address] [place] [address] 57575- 2215 May, Generalized anxiety disorder F41.1 and Major depressive disorder, recurrent episode with anxious distress F33.9 [facility] [address], [place] [address]- 3542 Apr, Pain in right knee M25.561 and Pain in left knee M25.562 [facility] [address] [place] [address] 23983- 5354 Apr, [facility] [id number] [place] [address] 88804- 7884 Apr, [facility] [id number] [place] [address] 03711- 3745 Apr, [facility] [id number] [place] [address] 91019- 1849 Mar, Generalized anxiety disorder F41.1 and Major depressive disorder, recurrent episode with anxious distress F33.9 [facility] [id number] [place] [address] 38917- 9097 Mar, Generalized anxiety disorder F41.1 and Major depressive disorder, recurrent episode with anxious distress F33.9 [facility] [id number] [place] [address] 71398- 5852 Mar, [facility] [id number] [place] [address] 33170- 8737 Mar, [facility] [id number] [place] [address] 04827- 1421 Mar, [facility] [id number] [place] [address] 23283- 5330 Mar, Asthma J45.909 and Fibromyalgia M79.7 [facility] [id number] [place] [address] 13972- 6464 Mar, Chronic kidney disease, stage 4 (severe) N18.4 ; Vitamin D deficiency E55.9 and Essential (primary) hypertension I10 [facility] [id number] [place] [address] 47834- 3477 Feb, [facility] [id number] [place] [address] 77510- 3016 Feb, Dysuria R30.0 ; Mixed stress and urge urinary incontinence N39.46 ; Fibromyalgia M79.7 and Chronic kidney disease, stage IV (severe) N18.4 [facility] [id number] [address] 2546 Feb, Chronic kidney disease, stage 4 (severe) N18.4 [facility] [id number] [place] [address] 53971 2546 Feb, Chronic kidney disease, stage 4 (severe) N18.4 [facility] [id number] [place] [address] 54779 2546 Feb, [facility] [id number] [place] [address] 22850 2546 Feb, Vitamin D deficiency, unspecified E55.9 [facility] [id number] [place] [address] 77805 2546 Jan, [facility] [id number] [place] [address] 94942 2546 Jan, [facility] [id number] [place] [address] 14652 2546 30 Dec, 2015 [facility] [id number] [place] [address] 96263 2546 28 Dec, 2015 Chronic kidney disease, stage 4 (severe) N18.4 [facility] [id number] [place] [address] 08254 2546 Dec, Dysthymic disorder F34.1 and Generalized anxiety disorder F41.1 [facility] [address], [place] [address] 2546 27 Dec, 2015 [facility] [id number] [place] [address] 91370 2546 26 Dec, 2015 [facility] [address] [place] [address] 72019 2546 08 Dec, 2015 Dysthymic disorder F34.1 and Generalized anxiety disorder F41.1 [facility] [id number] [place] [address] 33394- 4589 Dec, Dysuria R30.0 ; Chronic kidney disease, stage 4 (severe) N18.4 ; Hypertension I10 ; Dyspepsia R10.13 ; Yeast dermatitis B37.2 ; Palpitations R00.2 ; Hypothyroid E03.9 ; Functional 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 and Other seasonal allergic rhinitis J30.2 [facility] [id number] [place] [address] 57529 -3117 Dec, [facility] [address] 31243 -4719 Nov, Dysuria R30.0 and Stress incontinence N39.3 [facility] [address] 61514- 8720 Nov, [place] [facility] [address] 55954- 6859 Nov, [facility] [facility] [address] 82395- 8138 Nov, Osteoarthritis of knees, bilateral M17.0 [facility] [facility] [address] 83755- 7071 Nov, Dysthymic disorder F34.1 and Generalized anxiety disorder F41.1 [place] [facility] [id number] [place] [address] 84357- 2901 Nov, [facility] [facility] [address] 62376- 1976 Nov, [place] [facility] [address] 61043- 5029 Nov, Urgency of urination R39.15 [place] [address] 18025- 4115 Nov, [facility] [place] [id number] [place] [address] 07323- 2426 Nov, Chronic kidney disease, stage 4 (severe) N18.4 [place] [id number] [place] [address] 23059- 2275 Oct, Hypertension I10 ; Coronary artery disease involving minto coronary artery of minto heart, angina presence unspecified I25.10 ; Palpitations R00.2 ; Hypothyroid E03.9 ; Right foot pain M79.671 ; Functional 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 and Other seasonal allergic rhinitis J30.2 [place] [id number] [place] [address] 29651- 4940 Oct, Dysthymic disorder F34.1 and Generalized anxiety disorder F41.1 [place] [id number] [place] [address] 79421- 5415 Sep, [place] [address] 30286- 1431 Sep, [place] [address] 13444- 5470 Sep, [facility] [address] 78045- 7379 Sep, [facility] [id number] [place] [address] 21482- 0634 Sep, [facility] [id number] [place] [address] 08366- 6934 Sep, Dysthymic disorder F34.1 and Generalized anxiety disorder F41.1 [place] [id number] [place] [address] 31862- 4499 16 Sep, 2015 Asthma with acute exacerbation in adult J45.901 ; Dysuria R30.0 ; Chronic kidney disease, stage 4 (severe) N18.4 and History of anemia Z86.2 [place] [id number] [place] [address] 39678- 1669 Sep, Generalized anxiety disorder F41.1 and Dysthymic disorder F34.1 [facility] [id number] [place] [address] 96757- 7540 August, Screening breast examination Z12.39 and Acute recurrent maxillary sinusitis J01.01 [facility] [id number] [place] [address] 67698- 5372 August, Osteoarthritis of knees, bilateral M17.0 [facility] [id number] [place] [address] 08559- 5598 August, Chronic kidney disease, stage 4 (severe) N18.4 ; Acute non- recurrent maxillary sinusitis J01.00 ; Urinary problem R39.89 ; Bowel habit changes R19.4 ; Functional 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 and History of colon polyps Z86.010 [facility] [id number] [place] [address] 51851- 2747 Jul, Dysthymic disorder F34.1 and Generalized anxiety disorder F41.1 [place] [address] 53456- 1287 Jul, [place] [address] 88785- 4580 Jul, Dysthymic disorder F34.1 ; Generalized anxiety disorder F41.1 and skilled nursing use of drug Z79.899 [place] [address] 28742- 0009 Jul, [facility] [id number] [place] [address] 82929- 2457 16 Jun, 2015 [facility] [id number] [place] [address] [id number]- [phone] 08 Jun, 2015 [facility] [id number] [place] [address] 44398- 3038 May, [facility] [address] 87919- 7276 May, Dysthymic disorder F34.1 and Generalized anxiety disorder F41.1 [facility] [id number] [place] [address] 63554- 7090 Apr, Kidney disease N28.9 [facility] [id number] [place] [address] 10366- 7606 Apr, Generalized anxiety disorder F41.1 and Dysthymic disorder F34.1 [facility] [address] 35744- 6851 Apr, Chronic kidney disease, stage 4 (severe) N18.4 [facility] [address] 96614- 9752 Apr, Generalized anxiety disorder F41.1 ; Major depression, recurrent F33.9 and Sleep disturbance G47.9 [place] [address] [address]27- 9604 Mar, Generalized anxiety disorder F41.1 and Dysthymic disorder F34.1 [place] [address] 67831- 2885 Mar, Generalized anxiety disorder F41.1 ; Dysthymic disorder F34.1 and Insomnia G47.00 [place] [address] 14312- 4430 Mar, [place] [address] 76279- 1930 Mar, [place] [address] 92065- 2898 Mar, Osteoarthritis of knees, bilateral M17.0 [place] [id number] [place] [address] 35448- 9208 Mar, Hypertension I10 ; Hypothyroid E03.9 ; Dysthymic disorder F34.1 ; Chronic kidney disease, stage 4 (severe) N18.4 and Nausea & vomiting R11.2 [place] [address] [place] [id number] [place] [address] 79998- 2269 Mar, Generalized anxiety disorder F41.1 ; Dysthymic disorder F34.1 and Insomnia G47.00 [place] [address] [place] [id number] [place] [address] 01074- 4317 Mar, Dehydration E86.0 ; Chronic kidney disease, stage 4 (severe ) N18.4 and Nausea & vomiting R11.2 [facility] [address] [place] [id number] [place] [address] 27977 -4722 Mar, Gastroenteritis K52.9 [facility] [address] [place] [id number] [place] [address] 77866- 8513 Mar, [facility] [address] [place] [id number] [place] [address] 56846- 8869 Mar, [place] [address] [place] [id number] [place] [address] 44085- 0741 Feb, Dysthymic disorder F34.1 and Generalized anxiety disorder F41.1 [place] [id number] [place] [address] 51249- 3467 Jan, UTI (urinary tract infection) N39.0 ; Asthma J45.909 ; Coronary artery disease involving minto coronary artery of minto heart, angina presence unspecified I25.10 ; Hypertension I10 ; Hypothyroid E03.9 ; Vitamin D deficiency E55.9 ; Insomnia G47.00 ; Palpitations R00.2 ; Depressed F32.9 ; Restless leg G25.81 and Anxiety F41.9 [facility] [id number] [place] [address] 96052- 3923 Jan, Dysthymic disorder F34.1 and Generalized anxiety disorder F41.1 [place] [address] [place] [id number] [place] [address] 40550- 0074 Jan, [place] [address] [place] [id number] [place] [address] 83279- 3438 Dec, [place] [id number] [place] [address] 94132- 9086 Dec, Alkalosis 276.3 ; Chronic kidney disease, 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.4 ; Hyperpotassemia 276.7 ; Secondary hyperparathyroidism, renal 588.81 ; Proteinuria 791.0 ; Unspecified vitamin D deficiency 268.9 ; Anemia in chronic kidney disease 285.21 ; Other and unspecified hyperlipidemia 272.4 ; Hypertension, essential, benign 401.1 and Chronic kidney disease (CKD), stage III (moderate) 585.3 [id number] [place] [address] 66933- 1870 Dec, [place] [id number] [place] [address] 83119- 4570 Dec, Depressive disorder, not elsewhere classified 311 and Generalized anxiety disorder 300.02 [place] [id number] [place] [address] 95014- 6534 Dec, [address] 45195- 8733 Dec, [place] [id number] [place] [address] 72818- 4753 Nov, Depressive disorder, not elsewhere classified 311 and Generalized anxiety disorder 300.02 [place] [id number] [place] [address] 61716- 3940 Nov, Arthritis of both knees 716.[address] 94689- 0997 Nov, PAF (paroxysmal atrial fibrillation) 427.31 ; CAD (coronary artery disease) 414.00 ; Chest pain 786.50 and Chronic kidney disease (CKD) stage G4/A1, severely decreased glomerular filtration rate (GFR) between 15-29 mL/min/1.73 square meter and albuminuria creatinine ratio less than 30 mg/g 585.4 [id number] [place] [address] 28383- 6804 Oct, Coronary atherosclerosis of unspecified type of vessel, minto or graft 414.00 ; Chronic kidney disease, 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.4 ; Hypertension 401.9 and Edema 782.3 [place] [id number] [place] [address] 38857- 1572 Oct, Depressive disorder, not elsewhere classified 311 and Generalized anxiety disorder 300.[id number] [place] [address] 87786- 6798 Oct, Depressive disorder, not elsewhere classified 311 and Generalized anxiety disorder 300.02 [facility] [address] [place] [id number] [place] [address] 64042- 1954 Oct, [facility] [address] [place] [id number] [place] [address] 66750- 2864 Oct, [facility] [address] 44423- 0077 Sep, [facility] [address] 08929- 1314 Sep, Chronic kidney disease, 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.4 [place] [address] [place] [id number] [place] [address] 94629- 0685 Sep, [place] [address] 71688- 0500 Sep, Coronary atherosclerosis of unspecified type of vessel, minto or graft 414.00 ; Hypertension 401.9 ; Edema 782.3 and Hypothyroidism 244.9 [place] [address] [place] [id number] [place] [address] 76917- 9294 Sep, Coronary atherosclerosis of unspecified type of vessel, minto or graft 414.00 ; Hypertension 401.9 ; Fibromyalgia 729.1 ; Edema 782.3 ; Hypothyroidism 244.9 and Anemia 285.9 [place] [address] [place] [id number] [place] [address] 21383- 9328 Sep, Anxiety disorder, unspecified 300.00 and Depressive disorder , not elsewhere classified 311 [facility] [address] [place] [id number] [place] [address] 45481- 9472 Sep, [facility] [address] [place] [id number] [place] [address] 17183- 6021 August, Generalized anxiety disorder 300.02 [facility] [address] [place] [id number] [place] [address] 05112- 6311 August, Closed fracture of lateral malleolus 824.2 [facility] [place] [facility] [address] [id number] [place] [address]- 2389 14 Jul, 2014 [facility] [place] [facility] [address] [id number], [place] [address]- 9876 Jul, [facility] [place] [facility] [address] [facility] [id number], [place] [address]- 6088 Jun, [facility] [place] [facility] [address] [id number], [place] [address]- 0730 Jun, [facility] [place] [facility] [address] [facility] [id number], [place] [address]- 1632 Jun, [facility] [place] [facility] [address] [facility] [id number], [place] [address]- 4943 Jun, [facility] [place] [facility] [address] [id number] [address]- 3201 Jun, [facility] [place] [facility] [address] [facility] [id number], [place] [address]- 9064 Jun, [facility] [place] [facility] [address] [id number], [place] [address]- 3873 May, [facility] [place] [facility] [address] [facility] [id number], [place] [address]- 9674 May, [facility] [place] [facility] [address] [id number], [place] [address]- 8291 May, [facility] [place] [facility] [address] [facility] [id number], [place] [address]- 0168 May, [facility] [place] [facility] [address] [facility] [id number], [place] [address]- 9580 16 May, 2014 [facility] [place] [facility] [address] [facility] [id number], [place] [address]- 8799 16 May, 2014 [facility] [place] [facility] [address] [id number], [place] [address]- 7036 May, [facility] [place] [facility] [address] [id number] [place] [address]- 5698 13 May, 2014 [facility] [place] [facility] [address] [id number] [place] [address]- 8008 10 May, 2014 [facility] [place] [facility] [address] [id number] [place] 1656 10 May, 2014 [facility] [place] [facility] [address] [id number] [place] [address]- 1432 Apr, [facility] [place] [facility] [address] [id number] [place] [address]- 5686 Apr, [facility] [place] [facility] [address] [id number] [place] [address]- 0847 Mar, [facility] [place] [facility] [address] [id number] [place] [address]- 3141 Mar, [facility] [place] [facility] [address] [id number] [place] [address]- 5109 Mar, [facility] [place] [facility] [address] [id number] [place] [address]- 1581 Mar, [facility] [place] [facility] [address] [id number] [place] [address]- 9844 Mar, [facility] [place] [facility] [address] [id number] [place] [address]- 2385 15 Mar, 2014 [facility] [place] [facility] [address] [id number] [place] [address]- 5709 Mar, [facility] [place] [facility] [address] [id number] [place] [address]- 9308 Feb, [facility] [place] [facility] [address] [id number] [place] [address]- 0438 Feb, [facility] [place] [facility] [address] [id number] [place] [address]- 6050 17 Feb, 2014 [facility] [place] [facility] [address] [id number] [place] [address]- 5378 Jan, [facility] [place] [facility] [address] [id number] [place] [address]- 1490 Jan, [facility] [place] [facility] [address] [id number] [place] [address]- 4912 Jan, [facility] [place] [facility] [address] [id number] [place] [address]- 2954 Jan, [facility] [place] [facility] [address] [id number] [place] [address]- 6219 Jan, [facility] [place] [facility] [address] [id number] [place] [address]- 4746 Jan, [facility] [place] [facility] [address] [id number] [place] [address]- 2469 Jan, [facility] [place] [facility] [address] [id number] [place] [address]- 9545 Jan, [facility] [place] [facility] [address] [id number] [place] [address]- 7800 Jan, [facility] [place] [facility] [address] [id number] [place] [address]- 4477 Jan, [facility] [place] [facility] [address] [id number] [place] [address]- 9267 Nov, [facility] [place] [facility] [address] [id number] [place] [address]- 6566 Nov, [facility] [place] [facility] [address] [id number] [place] [address]- 2060 Nov, [facility] [place] [facility] [address] [id number] [place] [address]- 2096 Oct, [facility] [place] [facility] [address] [id number] [place] [address]- 5258 Oct, [facility] [place] [facility] [address] [id number] [place] [address]- 8209 Oct, [facility] [place] [facility] [address] [id number] [place] [address]- 4040 18 Oct, 2013 [facility] [place] [facility] [address] [id number] [place] [address]- 3976 Oct, [facility] [place] [facility] [address] [id number] [place] [address]- 4604 Oct, [facility] [place] [facility] [address] [id number] [place] [address]- 7548 Oct, [facility] [place] [facility] [address] [id number] [place] [address]- 6292 Oct, [facility] [place] [facility] [address] [id number] [place] [address]- 2295 Oct, [facility] [place] [facility] [address] [id number] [place] [address]- 2084 Sep, [facility] [place] [facility] [address] [id number] [place] [address]- 6640 Sep, [facility] [place] [facility] [address] [id number] [place] [address]- 4070 Sep, [facility] [place] [facility] [address] [id number] [place] [address]- 7350 Sep, [facility] [place] [facility] [address] [id number] [place] [address]- 0562 Sep, [facility] [place] [facility] [address] [id number] [place] [address]- 6528 Sep, [facility] [place] [facility] [address] [id number] [place] [address]- 3757 Sep, [facility] [place] [facility] [address] [id number] [place] [address]- 9172 Sep, [facility] [place] [facility] [address] [id number] [place] [address]- 5662 Sep, [facility] [place] [facility] [address] [id number] [place] [address]- 3962 August, [facility] [place] [facility] [address] [id number] [place] [address]- 1485 August, [facility] [place] [facility] [address] [id number] [place] [address]- 5473 August, [facility] [place] [facility] [address] [id number] [place] [address]- 7101 August, [facility] [place] [facility] [address] [id number] [place] [address]- 5413 August, [facility] [place] [facility] [address] [id number] [place] [address]- 8774 August, [facility] [place] [facility] [address] [id number] [place] [address]- 6150 Jul, [facility] [place] [facility] [address] [id number] [place] [address]- 5570 Jul, [facility] [place] [facility] [address] [id number] [place] [address]- 3787 Jul, [facility] [place] [facility] [address] [id number] [place] [address]- 2949 Jul, [facility] [place] [facility] [address] [id number] [place] [address]- 4699 Jul, [facility] [place] [facility] [address] [id number] [place] [address]- 1140 Jul, [facility] [place] [facility] [address] [id number] [place] [address]- 6931 Jun, [facility] [place] [facility] [address] [id number] [place] [address]- 2397 Jun, [facility] [place] [facility] [address] [id number] [place] [address]- 6747 May, [facility] [place] [facility] [address] [id number] [place] [address]- 8020 May, [facility] [place] [facility] [address] [id number] [place] [address]- 2550 10 May, 2013 [facility] [address] [id number] [place] [address]- 4381 10 May, 2013 [facility] [place] [facility] [address] [id number] [place] [address]- 3638 Apr, [facility] [address] [id number] [place] [address]- 8468 Apr, [facility] [place] [facility] [address] [id number] [place] [address]- 0840 18 Mar, 2013 [facility] [address] [id number] [place] [address]- 8707 18 Mar, 2013 [facility] [place] [facility] [address] [id number] [place] [address]- 2002 17 Mar, 2013 [facility] [address] [id number] [place] [address]- 3763 17 Mar, 2013 [facility] [address] [id number] [place] [address]- 1550 05 Mar, 2013 [facility] [place] [facility] [address] [id number] [place] [address]- 0727 05 Mar, [address] [facility] [address] [facility] [id number] [place] [address]- 7244 Feb, [facility] [place] [facility] [address] [id number] [place] [address]- 9453 Feb, [facility] [place] [facility] [address] [id number] [place] [address]- 3362 14 Feb, 2013 [facility] [place] [facility] [address] [id number] [place] [address]- 8802 14 Feb, 2013 [facility] [place] [facility] [address] [id number] [place] [address]- 7785 05 Feb, 2013 [facility] [place] [facility] [address] [id number] [place] 7925 Feb, [facility] [place] [facility] [address] [id number] [place] [address]- 1306 Jan, [facility] [place] [facility] [address] [id number] [place] [address]- 0961 Jan, [facility] [place] [facility] [address] [id number] [place] [address]- 0820 Jan, [facility] [place] [facility] [address] [id number] [place] [address]- 1653 Jan, [facility] [place] [facility] [address] [id number] [place] [address]- 5041 Jan, [facility] [place] [facility] [address] [id number] [place] [address]- 6295 Jan, [facility] [place] [facility] [address] [id number] [place] [address]- 6235 Dec, [facility] [place] [facility] [address] [id number] [place] [address]- 8514 Dec, [facility] [place] [facility] [address] [id number] [place] [address]- 1983 Nov, [facility] [place] [facility] [address] [id number] [place] [address]- 8932 Nov, [facility] [place] [facility] [address] [id number] [place] [address]- 6635 Oct, [facility] [place] [facility] [address] [id number] [place] [address]- 4668 Oct, [facility] [place] [facility] [address] [id number] [place] [address]- 0359 Oct, [facility] [place] [facility] [address] [id number] [place] [address]- 6410 Oct, [facility] [place] [facility] [address] [id number] [place] [address]- 2548 Oct, [facility] [place] [facility] [address] [id number] [place] [address]- 6954 Oct, [facility] [address] [id number] [place] [address]- 6212 Sep, [facility] [place] [facility] [address] [id number] [place] [address]- 6540 Sep, [facility] [address] [id number] [place] [address]- 4538 Sep, [facility] [place] [facility] [address] [id number] [place] [address]- 5726 Sep, [facility] [address] [id number] [place] [address]- 7816 August, [facility] [address] [id number] [place] [address]- 8071 August, [facility] [address] [id number] [place] [address]- 4793 August, [facility] [address] [id number] [place] [address]- 8067 August, [facility] [address] [id number] [place] [address]- 1750 August, [facility] [address] [id number] [place] [address]- 3446 Jul, [facility] [place] [facility] [address] [id number] [place] [address]- 5222 Jul, [facility] [place] [facility] [address] [id number] [place] [address]- 0237 15 Jul, 2012 [facility] [place] [facility] [address] [id number] [place] [address]- 7543 Jul, [facility] [place] [facility] [address] [id number] [place] [address]- 2453 Jul, [facility] [place] [facility] [address] [id number] [place] [address]- 4639 Jul, [facility] [place] [facility] [address] [id number] [place] [address]- 1076 08 Jul, 2012 [facility] [address] [id number] [place] [address]- 1866 Jul, [facility] [address] [id number] [place] [address]- 2546 Jul, [facility] [address] [id number] [place] [address]- 2546 Jul, [facility] [address] [id number] [place] [address] Jun, [facility] [address] [id number] [place] [address]- 5386 Jun, [facility] [address] [id number] [place] [address]- 9606 Jun, [facility] [address] [id number] [place] [address]- 0326 Jun, [facility] [address] [id number] [place] [address]- 2916 Jun, [facility] [address] [id number] [place] [address]- 2701 May, [facility] [address] [id number] [place] [address]- 2063 May, [facility] [address] [id number] [place] [address]- 5676 May, [facility] [address] [id number] [place] [address]- 3025 Apr, [facility] [address] [id number] [place] [address]- 1296 Apr, [facility] [address] [id number] [place] [address]- 1926 Apr, [facility] [address] [id number] [place] [address]- 1187 Apr, [facility] [address] [id number] [place] [address]- 5565 Apr, [facility] [place] [facility] [address] [id number] [place] [address] Apr, [facility] [place] [facility] [address] [id number] [place] [address] Mar, [facility] [place] [facility] [address] [id number] [place] [address] Mar, [facility] [place] [facility] [address] [id number] [place] [address] Mar, [facility] [place] [facility] [address] [id number] [place] [address] Mar, [facility] [place] [facility] [address] [id number] [place] [address] Feb, [facility] [place] [facility] [address] [id number] [place] [address] Feb, [facility] [place] [facility] [address] [id number] [place] [address] Feb, [facility] [place] [facility] [address] [id number], [place] [address] Feb, [facility] [place] [facility] [address] [facility] [id number], [place] [address] Feb, [facility] [place] [facility] [address] [id number], [place] [address] Feb, [facility] [place] [facility] [address] [id number] [place] [address] Feb, [facility] [place] [facility] [address] [id number], [place] [address] Feb, [facility] [place] [facility] [address] [facility] [id number], [place] [address] Feb, [facility] [place] [facility] [address] [id number], [place] [address] Feb, [facility] [place] [facility] [address] [id number] [place] [address] Feb, [facility] [place] [facility] [address] [id number] [place] [address] Feb, [facility] [place] [facility] [address] [facility] [id number] [place] [address] Feb, [facility] [place] [facility] [address] [id number] [place] [address] Feb, [facility] [place] [facility] [address] [facility] [id number] [place] [address] Feb, [facility] [place] [facility] [address] [facility] [id number] [place] [address] Feb, [facility] [place] [facility] [address] [facility] [id number], [place] [address] Jan, [facility] [place] [facility] [address] [facility] [id number], [place] [address] Jan, [facility] [place] [facility] [address] [facility] [id number], [place] [address] Jan, [facility] [place] [facility] [address] [facility] [id number], [place] [address] Jan, [facility] [place] [facility] [address] [facility] [id number], [place] [address] 30 Jan, 2012 [facility] [place] [facility] [address] [facility] [id number], [place] [address] Jan, [facility] [place] [facility] [address] [facility] [id number], [place] [address] Jan, [facility] [place] [facility] [address] [facility] [id number], [place] [address] Jan, [facility] [place] [facility] [address] [facility] [id number], [place] [address] Jan, [facility] [place] [facility] [address] [id number] [place] [address] 15 Jan, 2012 [facility] [place] [facility] [address] [id number] [place] [address] 15 Jan, 2012 [facility] [place] [facility] [address] [id number] [place] [address] Jan, [facility] [place] [facility] [address] [id number] [place] [address] 26 Dec, 2011 [facility] [place] [facility] [address] [id number] [place] [address] 26 Sep, 2011 [facility] [place] [facility] [address] [id number] [place] [address] 24 Dec, 2011 [facility] [place] [facility] [address] [id number] [place] [address] 23 Dec, 2011 [facility] [place] [facility] [address] [id number] [place] [address] 22 Dec, 2011 [facility] [place] [facility] [address] [id number] [place] [address]47 21 Dec, 2011 [facility] [place] [facility] [address] [id number] [place] [address] 254 20 Dec, 2011 [facility] [place] [facility] [address] [id number] [place] [address] 254 20 Dec, 2011 [facility] [place] [facility] [address] [id number] [place] [address] 07 Sep, 2011 [facility] [place] [facility] [address] [id number] [place] [address] 06 Sep, 2011 [facility] [place] [facility] [address] [id number] [place] [address] 06 Sep, 2011 [facility] [place] [facility] [address] [id number] [place] [address] 05 Sep, 2011 [facility] [place] [facility] [address] [id number] [place] [address] Nov, [facility] [place] [facility] [address] [id number] [place] [address]- [address] Nov, [facility] [place] [facility] [address] [id number] [place] [address] Nov, [facility] [place] [facility] [address] [id number] [place] [address]- [address] Nov, [facility] [place] [facility] [address] [id number] [place] [address] Nov, [facility] [place] [facility] [address] [id number] [place] [address]- [address] Nov, [facility] [place] [facility] [address] [id number] [place] [address] Nov, [facility] [place] [facility] [address] [id number] [place] [address] Nov, [facility] [place] [facility] [address] [id number] [place] [address] Oct, [facility] [place] [facility] [address] [id number] [place] [address] Oct, [facility] [place] [facility] [address] [id number] [place] [address] Oct, [facility] [place] [facility] [address] [id number] [place] [address] Oct, [facility] [place] [facility] [address] [id number] [place] [address] Oct, [facility] [place] [facility] [address] [id number] [place] [address] Oct, [facility] [place] [facility] [address] [id number] [place] [address] Oct, [facility] [place] [facility] [address] [id number] [place] [address] Sep, [facility] [place] [facility] [address] [id number] [place] [address] Sep, [facility] [address] [id number] [place] [address] August, [facility] [place] [facility] [address] [id number] [place] [address] August, [facility] [address] [id number] [place] [address] August, [facility] [place] [facility] [address] [id number] [place] [address] August, [facility] [address] [id number] [place] [address] Jul, [facility] [place] [facility] [address] [id number] [place] [address] Jul, [facility] [address] [id number] [place] [address] Jul, [facility] [address] [id number] [place] [address] Jul, [facility] [place] [facility] [address] [id number] [place] [address] Jul, [facility] [address] [id number] [place] [address] Jul, [facility] [place] [facility] [address] [id number] [place] [address] 69[address] Jul, [facility] [place] [facility] [address] [id number] [place] [address] Jul, [facility] [place] [facility] [address] [id number] [place] [address] Jul, [facility] [place] [facility] [address] [id number] [place] [address] Jun, [facility] [place] [facility] [address] [id number] [place] [address] Jun, [facility] [place] [facility] [address] [id number] [place] [address] 15 Jun, 2011 [facility] [place] [facility] [address] [id number] [place] [address]- [address] 14 Jun, 2011 [facility] [place] [facility] [address] [id number] [place] [address]- [address] 12 Jun, 2011 [facility] [place] [facility] [address] [id number] [place] [address]- 7668 09 Jun, 2011 [facility] [place] [facility] [address] [id number] [place] [address] 09 Jun, 2011 [facility] [place] [facility] [address] [id number] [place] [address] 25 May, 2011 [facility] [place] [facility] [address] [id number] [place] [address]- [address] 24 May, 2011 [facility] [place] [facility] [address] [id number] [place] [address] 16 May, 2011 [facility] [place] [facility] [address] [id number] [place] [address] May, [facility] [place] [facility] [address] [id number] [place] [address] May, [facility] [place] [facility] [address] [id number] [place] [address] Apr, [facility] [place] [facility] [address] [id number] [place] [address]- [address] Apr, [facility] [place] [facility] [address] [id number] [place] [address] 48[address] Apr, [facility] [place] [facility] [address] [id number] [place] [address] Apr, [facility] [place] [facility] [address] [id number] [place] [address] 05 Apr, 2011 [facility] [place] [facility] [address] [id number], [place] [address] Mar, [facility] [place] [facility] [address] [id number] [place] [address] Mar, [facility] [place] [facility] [address] [id number] [place] [address] Mar, [facility] [place] [facility] [address] [id number] [place] [address] Mar, [facility] [place] [facility] [address] [id number] [place] [address] Mar, [facility] [place] [facility] [address] [id number] [place] [address] Mar, [facility] [place] [facility] [address] [id number] [place] [address] Mar, [facility] [place] [facility] [address] [facility] [id number], [place] [address] Feb, [facility] [place] [facility] [address] [id number] [place] [address] Feb, [facility] [place] [facility] [address] [facility] [id number] [place] [address] Feb, [facility] [place] [facility] [address] [facility] [id number] [place] [address]- [address] Feb, [facility] [place] [facility] [address] [id number], [place] [address] Jan, [facility] [place] [facility] [address] [id number], [place] [address] Jan, [facility] [place] [facility] [address] [id number] [place] [address]- [address] Jan, [facility] [place] [facility] [address] [facility] [id number] [place] [address]- 1427 Jan, [facility] [place] [facility] [address] [facility] [id number], [place] [address] Nov, [facility] [place] [facility] [id number], [place] [address] Mar, [facility] [id number] [address] Mar, [facility] [id number], [place] [address] Mar, [facility] [id number] Mar, [facility] [id number] [address] Mar, [facility] [id number] [address] Mar, [facility] [id number], [place] [address] Feb, [facility] [id number], [place] [address] Feb, [facility] [id number], [place] [address] Jan, [facility] [id number], [place] [address] Jan, [facility] [address] [id number], [place] [address] Jan, IMMUNIZATIONS No Known Immunizations SOCIAL HISTORY Never Assessed REASON FOR VISIT Lab PLAN OF CARE VITAL SIGNS MEDICATIONS Unknown Medications RESULTS No Results PROCEDURES Procedure Date Ordered Result Body Site URINALYSIS, AUTO, W/O SCOPE Apr 19, 2017 LAB NOT BILLED BY [facility] Apr 19, 2017 VENIPUNCT, ROUTINE* Apr 19, 2017 INSTRUCTIONS MEDICATIONS ADMINISTERED No Known Medications [...] History Bladder surgery [facility] 03/2016 Hospitalization History Surgeries Only Hospitalization History 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
--- OUTSIDE RECORDS SUMMARY | 2018-05-29 08:05 | XMS REPORT ---
Author Author KEIRA FORD [facility] Address [address] [place] [address] Care Team Providers Care Filler Feeder Name Role Phone KEIRA FORD Unavailable PROBLEMS Type Condition ICD9-CM Code [id number] Code Onset Dates Condition Status SNOMED Code Problem Long-term use of high-risk medication Z79.899 Active 603388421 Problem Abnormal chest CT R93.8 Active 473993628 Problem Low back pain M54.5 Active 839758459 Problem Generalized anxiety disorder F41.1 Active 04946130 Problem Dysthymic disorder F34.1 Active 34767290 Problem Coronary artery disease involving qawalangin coronary artery of qawalangin heart, angina presence unspecified I25.10 Active 4837386024477 Problem Depressed F32.9 Active 26819709 Problem Fibromyalgia M79.7 Active 224415996 Problem Hypothyroid E03.9 Active 12091081 Problem Essential (primary) hypertension I10 Active 30251057 Problem Insomnia G47.00 Active 749599175 Problem Vitamin D deficiency E55.9 Active 96112781 Problem Anemia in chronic kidney disease D63.1 Active 524241901059777 Problem Chronic kidney disease, unspecified N18.9 Active 967995337 Problem Body mass index (BMI) of 40.0-44.9 in adult Z68.41 Active 714142420 Problem Stage 3 chronic kidney disease N18.3 Active 660372370 Problem Restless leg G25.81 Active 51224102 Problem Palpitations R00.2 Active 45889597 Problem Asthma J45.909 Active 405664720 Problem Primary osteoarthritis of left knee M17.12 Active 471357628 Problem Bipolar disorder, current episode manic without psychotic features F31.10 Active 639207556 Problem Mood disorder F39 Active 17499833 Problem Degenerative tear of medial meniscus of left knee M23.204 Active 726829802 Problem History of colon polyps Z86.010 Active 122724993 Problem Asthma with acute exacerbation in adult J45.901 Active 914467880 Problem Chronic kidney disease, stage 4 (severe) N18.4 Active 647103999 Problem Functional 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 Active 41869924 Problem Hypokalemia E87.6 Active 27370108 Problem Mixed stress and urge urinary incontinence N39.46 Active 154271155 Problem History of anemia Z86.2 Active 090412146 Problem Other seasonal allergic rhinitis J30.2 Active 113873372 ALLERGIES No Information ENCOUNTERS Encounter Location Date Diagnosis [facility] [id number] [place] [address] 57350- 1093 Oct, [facility] [address] 66780- 2058 Sep, [facility] [address] 61544- 9792 August, Fibromyalgia M79.7 [facility] [address] 77261- 7084 August, [facility] [facility] [address] 77003- 1785 August, [facility] [facility] [address] 94297- 5526 August, Ab[address] chest [address] R93.8 [facility] [facility] [id number] [place] [address] 86715- 1034 August, Generalized anxiety disorder F41.1 and Major depressive disorder, recurrent episode with anxious distress F33.9 [facility] [id number] [place] [address] 28755- 4522 August, Ab[address] chest [address] R93.8 [place] [id number] [place] [address] 46717- 6688 Jul, [facility] [id number] [place] [address] 00473- 7411 Jul, Chronic kidney disease, stage 4 (severe) N18.4 [facility] [address] 23187- 8404 Jul, [facility] [id number] [place] [address] 15972- 3036 Jul, Restless leg G25.81 ; Mixed stress and urge urinary incontinence N39.46 and Fibromyalgia M79.7 [facility] [id number] [place] [address] 07897- 1099 Jul, Chronic kidney disease, stage 4 (severe) N18.4 [facility] [id number] [place] [address] 37508- 5185 Jun, Orthostatic hypotension I95.1 ; Chronic kidney disease, stage 4 (severe) N18.4 ; Chest wall discomfort R07.89 and Body mass index (BMI) of 40.0-44.9 in adult Z68.41 [facility] [id number] [place] [address] 24958- 1567 Jun, [facility] [id number] [place] [address] 27796- 9467 Jun, Orthostatic hypotension I95.1 [facility] [id number] [place] [address] 08193- 9183 Jun, [facility] [id number] [place] [address] 76656 -8999 Jun, Orthostatic hypotension I95.1 ; Dysuria R30.0 and Acute cystitis without hematuria N30.00 [facility] [id number] [place] [address] 66197- 1663 Jun, [facility] [id number] [place] [address] 45127- 5694 Jun, Chronic kidney disease, stage 4 (severe) N18.4 [facility] [id number] [place] [address] 70387- 2389 Jun, Fibromyalgia M79.7 [facility] [id number] [place] [address] 82692- 0702 Jun, [facility] [address] [address]- 3986 Jun, [facility] [id number] [place] [address] 15138- [address] May, [address] R93.8 and Stage 3 chronic kidney disease N18.3 [facility] [id number] [place] [address] 86860- 7906 May, Chronic kidney disease, stage 4 (severe) N18.4 [facility] [id number] [place] [address] 54437- 3318 May, Chronic kidney disease, stage 4 (severe) N18.4 [facility] [id number] [place] [address] 38928- [address] May, [address] R93.8 [facility] [id number] [place] [address] 49438- 2151 May, [facility] [id number] [place] [address] 93638- 1843 May, [facility] [id number] [place] [address] 45214- 5601 May, Generalized anxiety disorder F41.1 and Major depressive disorder, recurrent episode with anxious distress F33.9 [facility] [id number] [place] [address] 94621- 6665 May, Mood disorder F39 [facility] [address] [address]- 6247 Apr, [facility] [address] [place] [address] 23216- 1738 Apr, Infected skin lesion L08.9 and Muscle strain of right shoulder region, initial encounter S46.911A [facility] [address] [address]- 7911 Apr, Generalized anxiety disorder F41.1 and Major depressive disorder, recurrent episode with anxious distress F33.9 [facility] [address] [address]- 4320 Apr, [facility] [id number] [place] [address] 79902- 3223 Apr, Recent urinary tract infection Z87.440 and Hypothyroid E03.9 [facility] [id number] [place] [address] 84020- 3926 Apr, Generalized anxiety disorder F41.1 and Major depressive disorder, recurrent episode with anxious distress F33.9 [facility] [place] [id number] [place] [address] 64073- 6841 Apr, Recent urinary tract infection Z87.440 [facility] [id number] [place] [address] 99616- 5056 Mar, [facility] [id number] [place] [address] 94153 -4196 Mar, Dysuria R30.0 ; Acute cystitis without hematuria N30.00 and BMI 40.0-44.9, adult Z68.41 [facility] [id number] [place] [address] 77532- 3378 Mar, [facility] [facility] [id number] [place] [address] 64511- 5433 Mar, [facility] [id number] [place] [address] 82374- 5574 Mar, Generalized anxiety disorder F41.1 and Major depressive disorder, recurrent episode with anxious distress F33.9 [facility] [id number] [place] [address] 39973- 1064 Feb, Conjunctivitis, bacterial H10.9 [facility] [id number] [place] [address] 87836- 8116 Feb, [facility] [id number] [place] [address] 42843 -8829 Feb, Conjunctivitis, bacterial H10.9 [facility] [id number] [place] [address] 29600- 2555 Feb, [facility] [id number] [place] [address] 03857 -3832 Feb, Dysuria R30.0 ; Acute cystitis N30.00 and BMI 40.0-44.9, adult Z68.41 [place] [address] 25524- 9181 Feb, [facility] [address] 06535- 3148 Feb, Generalized anxiety disorder F41.1 and Major depressive disorder, recurrent episode with anxious distress F33.9 [facility] [place] [id number] [place] [address] 05280- 1685 Feb, Mood disorder F39 and BMI 40.0-44.9, adult Z68.41 [facility] [id number] [place] [address] 24553- 0147 Jan, [facility] [address] 26338- 8514 Jan, [facility] [id number] [place] [address] 67935- 6339 Jan, Hypothyroid E03.9 [facility] [id number] [place] [address] 29134- 1227 Jan, [facility] [facility] [id number] [place] [address] 11805- 9703 Jan, Chronic kidney disease, unspecified N18.9 ; Hypokalemia E87.6 ; Essential (primary) hypertension I10 ; Fibromyalgia M79.7 ; Coronary artery disease involving qawalangin coronary artery of qawalangin heart, angina presence unspecified I25.10 ; Hypothyroid E03.9 and Encounter for immunization Z23 [facility] [facility] [address] 87946- 7903 Jan, Hypothyroid E03.9 [facility] [id number] [place] [address] 58456- 6874 02 Jan, 2017 [facility] [id number] [place] [address] 75156- 2335 28 Dec, 2016 Vitamin D deficiency E55.9 [facility] [id number] [place] [address] 45804- 7629 28 Dec, 2016 Primary osteoarthritis of left knee M17.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 [facility] [id number] [place] [address] 31785- 4872 19 Dec, 2016 Fibromyalgia M79.7 [facility] [id number] [place] [address] 15496- 8780 18 Dec, 2016 Mood disorder F39 [facility] [place] [id number] [place] [address] 85318- 4959 13 Dec, 2016 [facility] [id number] [place] [address] 95482- 2543 13 Dec, 2016 Generalized anxiety disorder F41.1 and Major depressive disorder, recurrent episode with anxious distress F33.9 [facility] [place] [id number] [place] [address] 70799- 8312 11 Dec, 2016 [place] [id number] [place] [address] 20048- 5276 08 Dec, 2016 Streptococcal meningitis G00.2 [facility] [id number] [place] [address] 05871- 2547 07 Dec, 2016 Streptococcal meningitis G00.2 [facility] [id number] [place] [address] 22238- 5771 07 Dec, 2016 [facility] [id number] [place] [address] 26610- 2544 06 Dec, 2016 Streptococcal meningitis G00.2 [place] [id number] [place] [address] 20506169- 7376 Dec, [facility] [id number] [place] [address] 18556- 3398 Dec, Major depressive disorder, recurrent episode with anxious distress F33.9 [facility] [id number] [place] [address] 87200- 0198 Nov, Fever, unspecified fever cause R50.9 [facility] [id number] [place] [address] 18169- 7605 Nov, [facility] [id number] [place] [address] 50450- 1415 Nov, Hypothyroid E03.9 [facility] [id number] [place] [address] 97011- 3698 Nov, Generalized anxiety disorder F41.1 and Major depressive disorder, recurrent episode with anxious distress F33.9 [facility] [id number] [place] [address] 87886- 8583 Nov, [facility] [id number] [place] [address] [id number] Oct, Dental examination Z01.20 [facility] [id number] [place] [address] 84667- 6907 Oct, Generalized anxiety disorder F41.1 and Major depressive disorder, recurrent episode with anxious distress F33.9 [facility] [id number] [place] [address] 86331- 5852 Oct, Chronic kidney disease, stage 4 (severe) N18.4 [facility] [id number] [place] [address] 26517- 1902 Oct, [facility] [id number] [place] [address] 85842- 4067 Oct, Fibromyalgia M79.7 [facility] [id number] [place] [address] 86465- 0831 Oct, [facility] [id number] [place] [address] 71824- 0011 Oct, Generalized anxiety disorder F41.1 ; Major depressive disorder, recurrent episode with anxious distress F33.9 and Bipolar disorder, current episode manic without psychotic features F31.10 [facility] [address] [address]- 6309 Sep, [place] [id number] [place] [address] 27067- 2951 Sep, [facility] [facility] [id number] [place] [address] 19107- 3790 Sep, Vitamin D deficiency E55.9 [place] [id number] [place] [address] 14145- 3033 Sep, Vitamin D deficiency E55.9 [facility] [facility] [id number] [place] [address] 32580- 7121 Sep, [facility] [id number] [place] [address] 40916- 4959 Sep, Chronic kidney disease, stage 4 (severe) N18.4 ; Hypothyroid E03.9 ; Restless leg G25.81 ; Fibromyalgia M79.7 ; Essential ( primary) hypertension I10 ; Vitamin D deficiency E55.9 ; Dyspepsia R10.13 ; Anemia in chronic kidney disease D63.1 ; Chronic kidney disease, unspecified N18.9 ; Coronary artery disease involving qawalangin coronary artery of qawalangin heart , angina presence unspecified I25.10 ; Screening breast examination Z12.39 and Low back pain M54.5 [facility] [id number] [place] [address] 91412- 2936 August, Generalized anxiety disorder F41.1 and Major depressive disorder, recurrent episode with anxious distress F33.9 [facility] [id number] [place] [address] 54233- 4587 August, Generalized anxiety disorder F41.1 and Major depressive disorder, recurrent episode with anxious distress F33.9 [facility] [id number] [place] [address] 96131- 4643 August, Fibromyalgia M79.7 [facility] [facility] [address] [address]- 4396 Jul, Generalized anxiety disorder F41.1 and Major depressive disorder, recurrent episode with anxious distress F33.9 [facility] [address] [address]- 4102 Jul, Fibromyalgia M79.7 [facility] [facility] [id number] [place] [address] 55948- 5439 Jul, Generalized anxiety disorder F41.1 [facility] [id number] [place] [address] 26137- 4079 May, [place] [id number] [place] [address] 16819- 5945 May, Hypothyroid E03.9 [facility] [id number] [place] [address] 83269- 1567 May, Chronic kidney disease, stage 4 (severe) N18.4 ; Hypothyroid E03.9 ; Restless leg G25.81 ; Fibromyalgia M79.7 ; Essential ( primary) hypertension I10 ; Vitamin D deficiency E55.9 ; Dyspepsia R10.13 ; Acute non-recurrent maxillary sinusitis J01.00 ; Anemia in chronic kidney disease D63.1 ; Chronic kidney disease, unspecified N18.9 and Coronary artery disease involving qawalangin coronary artery of qawalangin heart, angina presence unspecified I25.10 [facility] [address], [place] [address]- 7481 May, Vitamin D deficiency, unspecified E55.9 [place] [id number] [place] [address] 82573- 8596 May, Generalized anxiety disorder F41.1 and Major depressive disorder, recurrent episode with anxious distress F33.9 [place] [address], [place] [address]- 7624 Apr, Pain in right knee M25.561 and Pain in left knee M25.562 [facility] [id number] [place] [address] 86626- 0172 Apr, [facility] [id number] [place] [address] 77490- 8675 Apr, [facility] [id number] [place] [address] 64803- 5456 Apr, [facility] [id number] [place] [address] 06973- 9351 Mar, Generalized anxiety disorder F41.1 and Major depressive disorder, recurrent episode with anxious distress F33.9 [place] [id number] [place] [address] 29086- 1057 Mar, Generalized anxiety disorder F41.1 and Major depressive disorder, recurrent episode with anxious distress F33.9 [place] [id number] [place] [address] 66306- 5290 Mar, [facility] [id number] [place] [address] 73596- 9979 Mar, [place] [id number] [place] [address] 71842- 4669 Mar, [place] [id number] [place] [address] 23209- 4420 Mar, Asthma J45.909 and Fibromyalgia M79.7 [place] [id number] [place] [address] 67929- 1054 Mar, Chronic kidney disease, stage 4 (severe) N18.4 ; Vitamin D deficiency E55.9 and Essential (primary) hypertension I10 [place] [id number] [place] [address] 39312- 0609 Feb, [place] [id number] [place] [address] 41243- 9764 Feb, Dysuria R30.0 ; Mixed stress and urge urinary incontinence N39.46 ; Fibromyalgia M79.7 and Chronic kidney disease, stage IV (severe) N18.4 [facility] [id number] [address] 2546 Feb, Chronic kidney disease, stage 4 (severe) N18.4 [facility] [id number] [place] [address] 84049 2546 Feb, Chronic kidney disease, stage 4 (severe) N18.4 [facility] [id number] [place] [address] 17983 2546 Feb, [facility] [id number] [place] [address] 57921 2546 Feb, Vitamin D deficiency, unspecified E55.9 [facility] [id number] [place] [address] 29128 2546 Jan, [facility] [id number] [place] [address] 74882 2546 Jan, [facility] [id number] [place] [address] 48538 2546 30 Dec, 2015 [facility] [id number] [place] [address] 14815 2546 28 Dec, 2015 Chronic kidney disease, stage 4 (severe) N18.4 [facility] [id number] [place] [address] 88468 2546 Dec, Dysthymic disorder F34.1 and Generalized anxiety disorder F41.1 [facility] [address] [address] 2546 27 Dec, 2015 [facility] [id number] [place] [address] 12138 2546 26 Dec, 2015 [facility] [id number] [place] [address] 61561 2546 08 Dec, 2015 Dysthymic disorder F34.1 and Generalized anxiety disorder F41.1 [facility] [id number] [place] [address] 23957- 6487 Dec, Dysuria R30.0 ; Chronic kidney disease, stage 4 (severe) N18.4 ; Hypertension I10 ; Dyspepsia R10.13 ; Yeast dermatitis B37.2 ; Palpitations R00.2 ; Hypothyroid E03.9 ; Functional 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 and Other seasonal allergic rhinitis J30.[address] [facility] [id number] [place] [address] 85013 -0739 Dec, [facility] [address] 20630 -0544 Nov, Dysuria R30.0 and Stress incontinence N39.3 [place] [address] 54627- 0195 Nov, [place] [address] 29946- 0919 Nov, [place] [address] 17570- 0957 Nov, Osteoarthritis of knees, bilateral M17.0 [place] [address] 08827- 1067 Nov, Dysthymic disorder F34.1 and Generalized anxiety disorder F41.1 [place] [id number] [place] [address] 17125- 3802 Nov, [place] [address] 31593- 4009 Nov, [place] [address] 30546- 0914 Nov, Urgency of urination R39.15 [place] [address] 73996- 3798 Nov, [place] [address] [id number] [place] [address] 15807- 3446 Nov, Chronic kidney disease, stage 4 (severe) N18.4 [place] [address] [place] [id number] [place] [address] [id number]- 6173 Oct, Hypertension I10 ; Coronary artery disease involving qawalangin coronary artery of q[place]alangin heart, angina presence unspecified I25.10 ; Palpitations R00.2 ; Hypothyroid E03.9 ; Right foot pain M79.671 ; Functional 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 and Other seasonal allergic rhinitis J30.2 [place] [address] [place] [id number] [place] [address] 54518- 2565 Oct, Dysthymic disorder F34.1 and Generalized anxiety disorder F41.1 [place] [address] [place] [id number] [place] [address] 89943- 3404 Sep, [place] [address] 28380- 2055 Sep, [place] [address] 18223- 7390 Sep, [place] [address] 17436- 8339 Sep, [place] [address] [place] [id number] [place] [address] [id number]- 8442 Sep, [place] [address] [place] [id number] [place] [address] 93516- 9949 Sep, Dysthymic disorder F34.1 and Generalized anxiety disorder F41.1 [place] [address] [place] [id number] [place] [address] 17222- 0718 16 Sep, 2015 Asthma with acute exacerbation in adult J45.901 ; Dysuria R30.0 ; Chronic kidney disease, stage 4 (severe) N18.4 and History of anemia Z86.2 [place] [address] [place] [id number] [place] [address] [id number]- 4068 Sep, Generalized anxiety disorder F41.1 and Dysthymic disorder F34.1 [facility] [address] [place] [id number] [place] [address] 92930- 3696 August, Screening breast examination Z12.39 and Acute recurrent maxillary sinusitis J01.01 [place] [id number] [place] [address] 93598- 3817 August, Osteoarthritis of knees, bilateral M17.0 [place] [id number] [place] [address] 18951- 4754 August, Chronic kidney disease, stage 4 (severe) N18.4 ; Acute non- recurrent maxillary sinusitis J01.00 ; Urinary problem R39.89 ; Bowel habit changes R19.4 ; Functional 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 and History of colon polyps Z86.010 [place] [id number] [place] [address] 96696- 0501 Jul, Dysthymic disorder F34.1 and Generalized anxiety disorder F41.1 [place] [address] 51421- 6675 Jul, [facility] [address] 88549- 2028 Jul, Dysthymic disorder F34.1 ; Generalized anxiety disorder F41.1 and USP use of drug Z79.899 [place] [address] 16498- 3816 Jul, [place] [id number] [place] [address] 09950- 2621 16 Jun, 2015 [place] [id number] [place] [address] 58894- 3168 08 Jun, 2015 [place] [id number] [place] [address] 05232- 0195 May, [facility] [address] 02253- 6753 May, Dysthymic disorder F34.1 and Generalized anxiety disorder F41.1 [place] [id number] [place] [address] 62908- 3276 Apr, Kidney disease N28.9 [place] [id number] [place] [address] 26628- 6699 Apr, Generalized anxiety disorder F41.1 and Dysthymic disorder F34.1 [place] [address] 22458- 2903 Apr, Chronic kidney disease, stage 4 (severe) N18.4 [place] [address] 05618- 7688 Apr, Generalized anxiety disorder F41.1 ; Major depression, recurrent F33.9 and Sleep disturbance G47.9 [place] [address] 29599- 3100 Mar, Generalized anxiety disorder F41.1 and Dysthymic disorder F34.1 [place] [address] 90159- 6503 Mar, Generalized anxiety disorder F41.1 ; Dysthymic disorder F34.1 and Insomnia G47.00 [place] [address] 05144- 8232 Mar, [facility] [address] 26903- 8698 Mar, [facility] [address] 60147- 8485 Mar, Osteoarthritis of knees, bilateral M17.0 [place] [id number] [place] [address] 62830- 8572 Mar, Hypertension I10 ; Hypothyroid E03.9 ; Dysthymic disorder F34.1 ; Chronic kidney disease, stage 4 (severe) N18.4 and Nausea & vomiting R11.2 [place] [id number] [place] [address] 63116- 7351 Mar, Generalized anxiety disorder F41.1 ; Dysthymic disorder F34.1 and Insomnia G47.00 [place] [id number] [place] [address] 02415- 2748 Mar, Dehydration E86.0 ; Chronic kidney disease, stage 4 (severe ) N18.4 and Nausea & vomiting R11.[address] [facility] [id number] [place] [address] 61303 -4925 Mar, Gastroenteritis K52.9 [facility] [id number] [place] [address] 48420- 3633 Mar, [facility] [id number] [place] [address] 40679- 2855 Mar, [place] [id number] [place] [address] 68168- 0625 Feb, Dysthymic disorder F34.1 and Generalized anxiety disorder F41.1 [place] [id number] [place] [address] 47574- 5739 Jan, UTI (urinary tract infection) N39.0 ; Asthma J45.909 ; Coronary artery disease involving qawalangin coronary artery of qawalangin heart, angina presence unspecified I25.10 ; Hypertension I10 ; Hypothyroid E03.9 ; Vitamin D deficiency E55.9 ; Insomnia G47.00 ; Palpitations R00.2 ; Depressed F32.9 ; Restless leg G25.81 and Anxiety F41.9 [facility] [id number] [place] [address] 54566- 3790 Jan, Dysthymic disorder F34.1 and Generalized anxiety disorder F41.1 [place] [id number] [place] [address] 45101- 2343 Jan, [place] [id number] [place] [address] 17678- 3737 Dec, [place] [id number] [place] [address] 79987- 4755 Dec, Alkalosis 276.3 ; Chronic kidney disease, 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.4 ; Hyperpotassemia 276.7 ; Secondary hyperparathyroidism, renal 588.81 ; Proteinuria 791.0 ; Unspecified vitamin D deficiency 268.9 ; Anemia in chronic kidney disease 285.21 ; Other and unspecified hyperlipidemia 272.4 ; Hypertension, essential, benign 401.1 and Chronic kidney disease (CKD), stage III (moderate) 585.3 [id number] [place] [address] 26256- 2124 Dec, [place] [id number] [place] [address] 88930- 2000 Dec, Depressive disorder, not elsewhere classified 311 and Generalized anxiety disorder 300.02 [place] [id number] [place] [address] 00297- 0183 Dec, [address] 65647- 6268 Dec, [place] [id number] [place] [address] 37642- 1615 Nov, Depressive disorder, not elsewhere classified 311 and Generalized anxiety disorder 300.02 [place] [id number] [place] [address] 12919- 6660 Nov, Arthritis of both knees 716.[address] 45740- 0128 Nov, PAF (paroxysmal atrial fibrillation) 427.31 ; CAD (coronary artery disease) 414.00 ; Chest pain 786.50 and Chronic kidney disease (CKD) stage G4/A1, severely decreased glomerular filtration rate (GFR) between 15-29 mL/min/1.73 square meter and albuminuria creatinine ratio less than 30 mg/g 585.4 [id number] [place] [address] 77576- 8002 Oct, Coronary atherosclerosis of unspecified type of vessel, qawalangin or graft 414.00 ; Chronic kidney disease, 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.4 ; Hypertension 401.9 and Edema 782.3 [place] [id number] [place] [address] 78003- 7000 Oct, Depressive disorder, not elsewhere classified 311 and Generalized anxiety disorder 300.[id number] [place] [address] 30897- 6085 Oct, Depressive disorder, not elsewhere classified 311 and Generalized anxiety disorder 300.02 [facility] [id number] [place] [address] 68332- 1632 Oct, [facility] [id number] [place] [address] 47395- 9158 Oct, [facility] [address] 93038- 8588 Sep, [facility] [address] 56917- 8152 Sep, Chronic kidney disease, 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.4 [place] [id number] [place] [address] 03944- 4158 Sep, [place] [address] 58051- 2303 Sep, Coronary atherosclerosis of unspecified type of vessel, qawalangin or graft 414.00 ; Hypertension 401.9 ; Edema 782.3 and Hypothyroidism 244.9 [place] [id number] [place] [address] 45354- 3919 Sep, Coronary atherosclerosis of unspecified type of vessel, qawalangin or graft 414.00 ; Hypertension 401.9 ; Fibromyalgia 729.1 ; Edema 782.3 ; Hypothyroidism 244.9 and Anemia 285.9 [place] [id number] [place] [address] 33264- 2441 Sep, Anxiety disorder, unspecified 300.00 and Depressive disorder , not elsewhere classified 311 [facility] [id number] [place] [address] 53780- 3319 Sep, [facility] [id number] [place] [address] 90563- 2617 August, Generalized anxiety disorder 300.02 [facility] [id number] [place] [address] 76641- 5191 August, Closed fracture of lateral malleolus 824.2 [facility] [place] [facility] [address] [id number] [place] [address]- 1960 14 Jul, 2014 [facility] [place] [facility] [address] [id number] [address]- 2647 Jul, [facility] [place] [facility] [address] [facility] [id number] [address]- 0062 Jun, [facility] [place] [facility] [address] [id number] [address]- 1697 Jun, [facility] [place] [facility] [address] [facility] [id number] [address]- 0833 Jun, [facility] [place] [facility] [address] [facility] [id number][place] [address]- 1235 Jun, [facility] [place] [facility] [address] [id number] [address]- 4646 Jun, [facility] [place] [facility] [address] [facility] [id number][place] [address]- 2803 Jun, [facility] [place] [facility] [address] [id number] [address]- 3563 May, [facility] [place] [facility] [address] [facility] [id number][place] [address]- 0358 May, [facility] [place] [facility] [address] [id number], [place] [address]- 4909 May, [facility] [place] [facility] [address] [facility] [id number][place] [address]- 9659 May, [facility] [place] [facility] [address] [facility] [id number][place] [address]- 8268 16 May, 2014 [facility] [place] [facility] [address] [facility] [id number][place] [address]- 7554 16 May, 2014 [facility] [place] [facility] [address] [id number] [address]- 9164 May, [facility] [place] [facility] [address] [id number] [place] [address]- 9462 13 May, 2014 [facility] [place] [facility] [address] [id number] [place] [address]- 0455 10 May, 2014 [facility] [place] [facility] [address] [id number] [place] 2756 10 May, 2014 [facility] [place] [facility] [address] [id number] [place] [address]- 1878 Apr, [facility] [place] [facility] [address] [id number] [place] [address]- 1592 Apr, [facility] [place] [facility] [address] [id number] [place] [address]- 0777 Mar, [facility] [place] [facility] [address] [id number] [place] [address]- 7761 Mar, [facility] [place] [facility] [address] [id number] [place] [address]- 6477 Mar, [facility] [place] [facility] [address] [id number] [place] [address]- 7712 Mar, [facility] [place] [facility] [address] [id number] [place] [address]- 2658 Mar, [facility] [place] [facility] [address] [id number] [place] [address]- 3039 15 Mar, 2014 [facility] [place] [facility] [address] [id number] [place] [address]- 8294 Mar, [facility] [place] [facility] [address] [id number] [place] [address]- 1562 Feb, [facility] [place] [facility] [address] [id number] [place] [address]- 6105 Feb, [facility] [place] [facility] [address] [id number] [place] [address]- 3087 17 Feb, 2014 [facility] [place] [facility] [address] [id number] [place] [address]- 2274 Jan, [facility] [place] [facility] [address] [id number] [place] [address]- 9568 Jan, [facility] [place] [facility] [address] [id number] [place] [address]- 8891 Jan, [facility] [place] [facility] [address] [id number] [place] [address]- 8063 Jan, [facility] [place] [facility] [address] [id number] [place] [address]- 4232 Jan, [facility] [place] [facility] [address] [id number] [place] [address]- 3390 Jan, [facility] [place] [facility] [address] [id number] [place] [address]- 7235 Jan, [facility] [place] [facility] [address] [id number] [place] [address]- 1858 Jan, [facility] [place] [facility] [address] [id number] [place] [address]- 6330 Jan, [facility] [place] [facility] [address] [id number] [place] [address]- 1273 Jan, [facility] [place] [facility] [address] [id number] [place] [address]- 9030 Nov, [facility] [place] [facility] [address] [id number] [place] [address]- 8938 Nov, [facility] [place] [facility] [address] [id number] [place] [address]- 4924 Nov, [facility] [place] [facility] [address] [id number] [place] [address]- 3340 Oct, [facility] [place] [facility] [address] [id number] [place] [address]- 0095 Oct, [facility] [place] [facility] [address] [id number] [place] [address]- 4897 Oct, [facility] [place] [facility] [address] [id number] [place] [address]- 8290 18 Oct, 2013 [facility] [place] [facility] [address] [id number] [place] [address]- 0942 Oct, [facility] [place] [facility] [address] [id number] [place] [address]- 0291 Oct, [facility] [place] [facility] [address] [id number] [place] [address]- 5662 Oct, [facility] [place] [facility] [address] [id number] [place] [address]- 4626 Oct, [facility] [place] [facility] [address] [id number] [place] [address]- 7876 Oct, [facility] [place] [facility] [address] [id number] [place] [address]- 8663 Sep, [facility] [place] [facility] [address] [id number] [place] [address]- 1843 Sep, [facility] [place] [facility] [address] [id number] [place] [address]- 1913 Sep, [facility] [place] [facility] [address] [id number] [place] [address]- 4650 Sep, [facility] [place] [facility] [address] [id number] [place] [address]- 2230 Sep, [facility] [place] [facility] [address] [id number] [place] [address]- 5599 Sep, [facility] [place] [facility] [address] [id number] [place] [address]- 7073 Sep, [facility] [place] [facility] [address] [id number] [place] [address]- 4251 Sep, [facility] [place] [facility] [address] [id number] [place] [address]- 3732 Sep, [facility] [place] [facility] [address] [id number] [place] [address]- 9422 August, [facility] [place] [facility] [address] [id number] [place] [address]- 9723 August, [facility] [place] [facility] [address] [id number] [place] [address]- 0368 August, [facility] [place] [facility] [address] [id number] [place] [address]- 7409 August, [facility] [place] [facility] [address] [id number] [place] [address]- 7407 August, [facility] [place] [facility] [address] [id number] [place] [address]- 4474 August, [facility] [place] [facility] [address] [id number] [place] [address]- 9663 Jul, [facility] [place] [facility] [address] [id number] [place] [address]- 4613 Jul, [facility] [place] [facility] [address] [id number] [place] [address]- 9021 Jul, [facility] [place] [facility] [address] [id number] [place] [address]- 7076 Jul, [facility] [place] [facility] [address] [id number] [place] [address]- 4161 Jul, [facility] [place] [facility] [address] [id number] [place] [address]- 6432 Jul, [facility] [place] [facility] [address] [id number] [place] [address]- 9810 Jun, [facility] [place] [facility] [address] [id number] [place] [address]- 4043 Jun, [facility] [place] [facility] [address] [id number] [place] [address]- 4466 May, [facility] [place] [facility] [address] [id number] [place] [address]- 7801 May, [facility] [place] [facility] [address] [id number] [place] [address]- 1195 10 May, 2013 [facility] [address] [id number] [place] [address]- 0964 10 May, 2013 [facility] [place] [facility] [address] [id number] [place] [address]- 0163 Apr, [facility] [address] [id number] [place] [address]- 6719 Apr, [facility] [place] [facility] [address] [id number] [place] [address]- 7537 18 Mar, 2013 [facility] [address] [id number] [place] [address]- 4041 18 Mar, 2013 [facility] [place] [facility] [address] [id number] [place] [address]- 8231 17 Mar, 2013 [facility] [address] [id number] [place] [address]- 9230 17 Mar, 2013 [facility] [address] [id number] [place] [address]- 5763 05 Mar, 2013 [facility] [place] [facility] [address] [id number] [place] [address]- 2160 05 Mar, 2013 [facility] [address] [facility] [id number] [place] [address]- 6193 Feb, [facility] [place] [facility] [address] [id number] [place] [address]- 9293 Feb, [facility] [place] [facility] [address] [id number] [place] [address]- 1473 14 Feb, 2013 [facility] [place] [facility] [address] [id number] [place] [address]- 8313 14 Feb, 2013 [facility] [place] [facility] [address] [id number] [place] [address]- 4038 05 Feb, 2013 [facility] [place] [facility] [address] [id number] [place] 7721 Feb, [facility] [place] [facility] [address] [id number] [place] [address]- 2651 Jan, [facility] [place] [facility] [address] [id number] [place] [address]- 2795 Jan, [facility] [place] [facility] [address] [id number] [place] [address]- 8887 Jan, [facility] [place] [facility] [address] [id number] [place] [address]- 9643 Jan, [facility] [place] [facility] [address] [id number] [place] [address]- 7437 Jan, [facility] [place] [facility] [address] [id number] [place] [address]- 2320 Jan, [facility] [place] [facility] [address] [id number] [place] [address]- 8368 Dec, [facility] [place] [facility] [address] [id number] [place] [address]- 3991 Dec, [facility] [place] [facility] [address] [id number] [place] [address]- 3512 Nov, [facility] [place] [facility] [address] [id number] [place] [address]- 8493 Nov, [facility] [place] [facility] [address] [id number] [place] [address]- 0942 Oct, [facility] [place] [facility] [address] [id number] [place] [address]- 7428 Oct, [facility] [place] [facility] [address] [id number] [place] [address]- 5894 Oct, [facility] [place] [facility] [address] [id number] [place] [address]- 9490 Oct, [facility] [place] [facility] [address] [id number] [place] [address]- 2541 Oct, [facility] [place] [facility] [address] [id number] [place] [address]- 7452 Oct, [facility] [address] [id number] [place] [address]- 2772 Sep, [facility] [place] [facility] [address] [id number] [place] [address]- 2651 Sep, [facility] [address] [id number] [place] [address]- 0395 Sep, [facility] [place] [facility] [address] [id number] [place] [address]- 2325 Sep, [facility] [address] [id number] [place] [address]- 9857 August, [facility] [address] [id number] [place] [address]- 5811 August, [facility] [address] [id number] [place] [address]- 4162 August, [facility] [address] [id number] [place] [address]- 0008 August, [facility] [address] [id number] [place] [address]- 9021 August, [facility] [address] [id number] [place] [address]- 6933 Jul, [facility] [place] [facility] [address] [id number] [place] [address]- 0761 Jul, [facility] [place] [facility] [address] [id number] [place] [address]- 6470 15 Jul, 2012 [facility] [place] [facility] [address] [id number] [place] [address]- 9171 Jul, [facility] [place] [facility] [address] [id number] [place] [address]- 7815 Jul, [facility] [place] [facility] [address] [id number] [place] [address]- 0688 Jul, [facility] [place] [facility] [address] [id number] [place] [address] 08 Jul, 2012 [facility] [address] [id number] [place] [address] Jul, [facility] [address] [id number] [place] [address] Jul, [facility] [address] [id number] [place] [address] Jul, [facility] [address] [id number] [place] [id number] Jun, [facility] [address] [id number] [place] [address] Jun, [facility] [address] [id number] [place] [address] Jun, [facility] [address] [id number] [place] [address] Jun, [facility] [address] [id number] [place] [address] Jun, [facility] [address] [id number] [place] [address] May, [facility] [address] [id number] [place] [address] May, [facility] [address] [id number] [place] [address] May, [facility] [address] [id number] [place] [address] Apr, [facility] [address] [id number] [place] [address] Apr, [facility] [address] [id number] [place] [address] Apr, [facility] [address] [id number] [place] [address] Apr, [facility] [address] [id number] [place] [address] Apr, [facility] [place] [facility] [address] [id number] [place] [address] Apr, [facility] [place] [facility] [address] [id number] [place] [address] Mar, [facility] [place] [facility] [address] [id number] [place] [address] Mar, [facility] [place] [facility] [address] [id number] [place] [address] Mar, [facility] [place] [facility] [address] [id number] [place] [address] Mar, [facility] [place] [facility] [address] [id number] [place] [address] Feb, [facility] [place] [facility] [address] [id number] [place] [address] Feb, [facility] [place] [facility] [address] [id number] [place] [address] Feb, [facility] [place] [facility] [address] [id number] [address] Feb, [facility] [place] [facility] [address] [facility] [id number] [address] Feb, [facility] [place] [facility] [address] [id number] [address] Feb, [facility] [place] [facility] [address] [id number] [place] [address] Feb, [facility] [place] [facility] [address] [id number] [address] Feb, [facility] [place] [facility] [address] [facility] [id number][place] [address] Feb, [facility] [place] [facility] [address] [id number][place] [address] Feb, [facility] [place] [facility] [address] [id number] [place] [address] Feb, [facility] [place] [facility] [address] [id number] [place] [address] Feb, [facility] [place] [facility] [address] [facility] [id number] [place] [address] Feb, [facility] [place] [facility] [address] [id number] [place] [address] Feb, [facility] [place] [facility] [address] [facility] [id number] [place] [address] Feb, [facility] [place] [facility] [address] [facility] [id number] [place] [address] Feb, [facility] [place] [facility] [address] [facility] [id number][place] [address] Jan, [facility] [place] [facility] [address] [facility] [id number][place] [address] Jan, [facility] [place] [facility] [address] [facility] [id number] [address] Jan, [facility] [place] [facility] [address] [facility] [id number] [address] Jan, [facility] [place] [facility] [address] [facility] [id number] [address] 30 Jan, 2012 [facility] [place] [facility] [address] [facility] [id number] [address] Jan, [facility] [place] [facility] [address] [facility] [id number] [address] Jan, [facility] [place] [facility] [address] [facility] [id number][place] [address] Jan, [facility] [place] [facility] [address] [facility] [id number][place] [address] Jan, [facility] [place] [facility] [address] [id number] [place] [address] 15 Jan, 2012 [facility] [place] [facility] [address] [id number] [place] [address] 15 Jan, 2012 [facility] [place] [facility] [address] [id number] [place] [address] Jan, [facility] [place] [facility] [address] [id number] [place] [id number] 2546 26 Dec, 2011 [facility] [place] [facility] [address] [id number] [place] [address] 2546 26 Sep, 2011 [facility] [place] [facility] [address] [id number] [place] [address] 24 Dec, 2011 [facility] [place] [facility] [address] [id number] [place] [address] 2255 23 Dec, 2011 [facility] [place] [facility] [address] [id number] [place] [address]149 22 Dec, 2011 [facility] [place] [facility] [address] [id number] [place] [address] 2543 21 Dec, 2011 [facility] [place] [facility] [address] [id number] [place] [address] 2541 20 Dec, 2011 [facility] [place] [facility] [address] [id number] [place] [address] 2542 20 Dec, 2011 [facility] [place] [facility] [address] [id number] [place] [address] 2546 07 Sep, 2011 [facility] [place] [facility] [address] [id number] [place] [address] 2546 06 Sep, 2011 [facility] [place] [facility] [address] [id number] [place] [address] 2546 06 Sep, 2011 [facility] [place] [facility] [address] [id number] [place] [address] 2546 05 Sep, 2011 [facility] [place] [facility] [address] [id number] [place] [address] 139[address] Nov, [facility] [place] [facility] [address] [id number] [place] [address] Nov, [facility] [place] [facility] [address] [id number] [place] [address] 68[address] Nov, [facility] [place] [facility] [address] [id number] [place] [address] 8192 Nov, [facility] [place] [facility] [address] [id number] [place] [address] 8751 Nov, [facility] [place] [facility] [address] [id number] [place] [address] 5187 Nov, [facility] [place] [facility] [address] [id number] [place] [address] 4391 Nov, [facility] [place] [facility] [address] [id number] [place] [address]- 1184 Nov, [facility] [place] [facility] [address] [id number] [place] [address]237 Oct, [facility] [place] [facility] [address] [id number] [place] [address] 0556 Oct, [facility] [place] [facility] [address] [id number] [place] [address] 8648 Oct, [facility] [place] [facility] [address] [id number] [place] [address] 6290 Oct, [facility] [place] [facility] [address] [id number] [place] [address] 50[address] Oct, [facility] [place] [facility] [address] [id number] [place] [address]- 1569 Oct, [facility] [place] [facility] [address] [id number] [place] [address] 8815 Oct, [facility] [place] [facility] [address] [id number] [place] [address] 9197 Sep, [facility] [place] [facility] [address] [id number] [place] [address]161 Sep, [facility] [address] [id number] [place] [address] August, [facility] [place] [facility] [address] [id number] [place] [address]- 7296 August, [facility] [address] [id number] [place] [address] 95[address] August, [facility] [place] [facility] [address] [id number] [place] [address]180 August, [facility] [address] [id number] [place] [address] 6574 Jul, [facility] [place] [facility] [address] [id number] [place] [address] 6560 Jul, [facility] [address] [id number] [place] [address] 0149 Jul, [facility] [address] [id number] [place] [address] 2729 Jul, [facility] [place] [facility] [address] [id number] [place] [address] 475[address] Jul, [facility] [address] [id number] [place] [address] 2317 Jul, [facility] [place] [facility] [address] [id number] [place] [address] 2856 Jul, [facility] [place] [facility] [address] [id number] [place] [address]- 6451 Jul, [facility] [place] [facility] [address] [id number] [place] [address] 3765 Jul, [facility] [place] [facility] [address] [id number] [place] [address] Jun, [facility] [place] [facility] [address] [id number] [place] [address] 1041 Jun, [facility] [place] [facility] [address] [id number] [place] [address]- 2087 15 Jun, 2011 [facility] [place] [facility] [address] [id number] [place] [address]- 9916 14 Jun, 2011 [facility] [place] [facility] [address] [id number] [place] [address]- 5731 12 Jun, 2011 [facility] [place] [facility] [address] [id number] [place] [address]- 6217 09 Jun, 2011 [facility] [place] [facility] [address] [id number] [place] [address]- 6451 09 Jun, 2011 [facility] [place] [facility] [address] [id number] [place] [address] 7841 25 May, 2011 [facility] [place] [facility] [address] [id number] [place] [address] 2876 24 May, 2011 [facility] [place] [facility] [address] [id number] [place] [address] 9174 16 May, 2011 [facility] [place] [facility] [address] [id number] [place] [address] 0631 May, [facility] [place] [facility] [address] [id number] [place] [address] May, [facility] [place] [facility] [address] [id number] [place] [address] 3299 Apr, [facility] [place] [facility] [address] [id number] [place] [address] 6420 Apr, [facility] [place] [facility] [address] [id number] [place] [address] 9360 Apr, [facility] [place] [facility] [address] [id number] [place] [address] 7853 Apr, [facility] [place] [facility] [address] [id number] [place] [address]- 0304 05 Apr, 2011 [facility] [place] [facility] [address] [id number] [address] Mar, [facility] [place] [facility] [address] [id number] [place] [address] 2383 Mar, [facility] [place] [facility] [address] [id number] [place] [address] Mar, [facility] [place] [facility] [address] [id number] [place] [address] Mar, [facility] [place] [facility] [address] [id number] [place] [address] 1852 Mar, [facility] [place] [facility] [address] [id number] [place] [address]- 4636 Mar, [facility] [place] [facility] [address] [id number] [place] [address]- 4423 Mar, [facility] [place] [facility] [address] [facility] [id number] [address]359 Feb, [facility] [place] [facility] [address] [id number] [place] [address] 3843 Feb, [facility] [place] [facility] [address] [facility] [id number] [place] [address]- 6925 Feb, [facility] [place] [facility] [address] [facility] [id number] [place] [address]- 8702 Feb, [facility] [place] [facility] [address] [id number], [place] [address] 6686 Jan, [facility] [place] [facility] [address] [id number][place] [address] 2273 Jan, [facility] [place] [facility] [address] [id number] [place] [address]- 2922 Jan, [facility] [place] [facility] [address] [facility] [id number] [place] [address]- 4569 Jan, [facility] [place] [facility] [address] [facility] [id number], [place] [address]- 4814 Nov, [facility] [place] [facility] [id number] [address] Mar, [facility] [id number] [address] Mar, [facility] [id number] [address] Mar, [facility] [id number] [address] Mar, [facility] [id number] [address] [address] Mar, [facility] [id number] [address] Mar, [facility] [id number], [place] [address]643 Feb, [facility] [id number], [place] [address]909 Feb, [facility] [id number], [place] [address] 8244 Jan, [facility] [id number], [place] [address]- 9[address] Jan, [facility] [id number] [address] Jan, IMMUNIZATIONS No Known Immunizations SOCIAL HISTORY Never Assessed REASON FOR VISIT f/u PLAN OF CARE Activity Details Follow Up prn Reason: VITAL SIGNS MEDICATIONS Unknown Medications RESULTS No Results PROCEDURES Procedure Date Ordered Result Body Site [facility]IS[facility] M[facility]AL [facility] ESTAB PT Apr 19, 2017 Psychotherapy, patient &/family, 45 minutes, established patient Apr 19, 2017 INSTRUCTIONS MEDICATIONS ADMINISTERED No [...] Bladder surgery [facility] 03/2016 Hospitalization History Surgeries Only Hospitalization History 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
--- OUTSIDE RECORDS SUMMARY | 2018-05-29 08:06 | XMS REPORT ---
Author Author ISABEL MAE [facility] Address [address] [place] [address] Care Team Providers Care Bond Clerk Name Role Phone ISABEL MAE Unavailable PROBLEMS Type Condition ICD9-CM Code [id number] Code Onset Dates Condition Status SNOMED Code Problem Long-term use of high-risk medication Z79.899 Active 870296744 Problem Abnormal chest CT R93.8 Active 795164502 Problem Low back pain M54.5 Active 087920280 Problem Generalized anxiety disorder F41.1 Active 80664055 Problem Dysthymic disorder F34.1 Active 02687068 Problem Coronary artery disease involving [place] coronary artery of [place] heart, angina presence unspecified I25.10 Active 8469738185411 Problem Depressed F32.9 Active 91559793 Problem Fibromyalgia M79.7 Active 717458740 Problem Hypothyroid E03.9 Active 87705922 Problem Essential (primary) hypertension I10 Active 58180436 Problem Insomnia G47.00 Active 850365856 Problem Vitamin D deficiency E55.9 Active 22172885 Problem Anemia in chronic kidney disease D63.1 Active 634957891363954 Problem Chronic kidney disease, unspecified N18.9 Active 946295014 Problem Body mass index (BMI) of 40.0-44.9 in adult Z68.41 Active 024419388 Problem Stage 3 chronic kidney disease N18.3 Active 288631469 Problem Restless leg G25.81 Active 92667784 Problem Palpitations R00.2 Active 95944233 Problem Asthma J45.909 Active 966708786 Problem Primary osteoarthritis of left knee M17.12 Active 297019455 Problem Bipolar disorder, current episode manic without psychotic features F31.10 Active 877179784 Problem Mood disorder F39 Active 94238191 Problem Degenerative tear of medial meniscus of left knee M23.204 Active 523539735 Problem History of colon polyps Z86.010 Active 906613577 Problem Asthma with acute exacerbation in adult J45.901 Active 744006804 Problem Chronic kidney disease, stage 4 (severe) N18.4 Active 693611271 Problem Functional 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 Active 16107759 Problem Hypokalemia E87.6 Active 97398011 Problem Mixed stress and urge urinary incontinence N39.46 Active 377813837 Problem History of anemia Z86.2 Active 400616158 Problem Other seasonal allergic rhinitis J30.2 Active 215531357 ALLERGIES No Information ENCOUNTERS Encounter Location Date Diagnosis [place] [id number] [place] [address] 56469- 4913 Sep, [place] [address] 31388- 5938 August, [place] [id number] [place] [address] 67337- 0049 August, [place] [address] 43428- 1799 August, Abnormal chest CT R93.8 [place] [id number] [place] [address] 64833- 6745 August, Generalized anxiety disorder F41.1 and Major depressive disorder, recurrent episode with anxious distress F33.9 [place] [id number] [place] [address] 44670- 74[address] August, [address] R93.8 [place] [id number] [place] [address] 01852- 0039 Jul, [place] [address] 25822- 8863 Jul, Chronic kidney disease, stage 4 (severe) N18.4 [place] [address] 19959- 4075 Jul, [place] [id number] [place] [address] 89050- 5311 Jul, Restless leg G25.81 ; Mixed stress and urge urinary incontinence N39.46 and Fibromyalgia M79.7 [facility] [place] [id number] [place] [address] 52558- 6162 Jul, Chronic kidney disease, stage 4 (severe) N18.4 [facility], [place] [id number] [place] [address] 66405- 8247 Jun, Orthostatic hypotension I95.1 ; Chronic kidney disease, stage 4 (severe) N18.4 ; Chest wall discomfort R07.89 and Body mass index (BMI) of 40.0-44.9 in adult Z68.41 [place] [id number] [place] [address] 24142- 2729 Jun, [place] [address] 70885- 0225 Jun, Orthostatic hypotension I95.1 [place] [id number] [place] [address] 56037- 7540 Jun, [facility] [id number] [place] [address] 81862 -1091 Jun, Orthostatic hypotension I95.1 ; Dysuria R30.0 and Acute cystitis without hematuria N30.00 [place] [id number] [place] [address] 21303- 8994 Jun, [facility], [place] [id number] [place] [address] 40250- 1049 Jun, Chronic kidney disease, stage 4 (severe) N18.4 [facility], [place] [id number] [place] [address] 85618- 2036 Jun, Fibromyalgia M79.7 [facility], [place] [id number] [place] [address] 29299- 5411 Jun, [facility], [place] [id number] [place] [address] 82086- 8863 Jun, [facility], [place] [id number] [place] [address] 60090- [address] May, [address] R93.8 and Stage 3 chronic kidney disease N18.3 [facility], [place] [address] [address]- 4781 May, Chronic kidney disease, stage 4 (severe) N18.4 [facility] [place] [address] [address]- 9629 May, Chronic kidney disease, stage 4 (severe) N18.4 [facility] [place] [id number] [place] [address] 99125- [address] May, [address] R93.8 [facility] [place] [id number] [place] [address] 32685- 0169 May, [facility] [place] [id number] [place] [address] 43660- 1314 May, [facility] [place] [id number] [place] [address] 50740- 2647 May, Generalized anxiety disorder F41.1 and Major depressive disorder, recurrent episode with anxious distress F33.9 [facility] [place] [id number] [place] [address] 24345- 4343 May, Mood disorder F39 [facility], [place] [id number] [place] [address] 02975- 6755 Apr, [facility], [place] [id number] [place] [address] 44516- 7620 Apr, Infected skin lesion L08.9 and Muscle strain of right shoulder region, initial encounter S46.911A [facility], [place] [id number] [place] [address] 98516- 4579 Apr, Generalized anxiety disorder F41.1 and Major depressive disorder, recurrent episode with anxious distress F33.9 [facility], [place] [address] [address]- 2674 Apr, [facility] [place] [id number] [place] [address] 03163- 1856 Apr, Recent urinary tract infection Z87.440 and Hypothyroid E03.9 [place] [id number] [place] [address] 03260- 2080 Apr, Generalized anxiety disorder F41.1 and Major depressive disorder, recurrent episode with anxious distress F33.9 [facility] [place] [id number] [place] [address] 85213- 5687 Apr, Recent urinary tract infection Z87.440 [facility] [place] [id number] [place] [address] 31372- 7631 Mar, [facility] [id number] [place] [address] 13546 -5661 Mar, Dysuria R30.0 ; Acute cystitis without hematuria N30.00 and BMI 40.0-44.9, adult Z68.41 [place] [id number] [place] [address] 36213- 5768 Mar, [facility] [place] [id number] [place] [address] 78797- 7385 Mar, [place] [id number] [place] [address] 46862- 0998 Mar, Generalized anxiety disorder F41.1 and Major depressive disorder, recurrent episode with anxious distress F33.9 [place] [id number] [place] [address] 08888- 8934 Feb, Conjunctivitis, bacterial H10.9 [facility], [place] [id number] [place] [address] 12614- 7115 Feb, [facility] [id number] [place] [address] 87854 -6336 Feb, Conjunctivitis, bacterial H10.9 [facility] [place] [id number] [place] [address] 86990- 4169 15 Feb, 2017 [facility] [id number] [place] [address] 02572 -8539 Feb, Dysuria R30.0 ; Acute cystitis N30.00 and BMI 40.0-44.9, adult Z68.41 [place] [address] 36827- 7488 Feb, [place] [id number] [place] [address] 70109- 4375 Feb, Generalized anxiety disorder F41.1 and Major depressive disorder, recurrent episode with anxious distress F33.9 [place] [address] 93797- 9699 Feb, Mood disorder F39 and BMI 40.0-44.9, adult Z68.41 [place] [address] 24647- 3694 Jan, [place] [address] 51204- 6825 Jan, [place] [address] 41363- 5972 Jan, Hypothyroid E03.9 [place] [address] 52704- 2872 Jan, [place] [id number] [place] [address] 98759- 7939 Jan, Chronic kidney disease, unspecified N18.9 ; Hypokalemia E87.6 ; Essential (primary) hypertension I10 ; Fibromyalgia M79.7 ; Coronary artery disease involving [place] coronary artery of [place] heart, angina presence unspecified I25.10 ; Hypothyroid E03.9 and Encounter for immunization Z23 [place] [id number] [place] [address] 92320- 7635 Jan, Hypothyroid E03.9 [place] [id number] [place] [address] 16862- 6540 Jan, [place] [address] 54664- 3877 Dec, Vitamin D deficiency E55.9 [facility], [place] [address], [place] [address]- 5692 28 Dec, 2016 Primary osteoarthritis of left knee M17.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 [place] [id number] [place] [address] 73885- 6769 19 Dec, 2016 Fibromyalgia M79.7 [facility], [place] [id number] [place] [address] 62647- 8177 18 Sep, 2016 Mood disorder F39 [place] [id number] [place] [address] 64553- 6393 13 Dec, 2016 [place] [id number] [place] [address] 10375- 9507 13 Dec, 2016 Generalized anxiety disorder F41.1 and Major depressive disorder, recurrent episode with anxious distress F33.9 [place] [id number] [place] [address] 80334- 7313 11 Dec, 2016 [place] [id number] [place] [address] 71786- 4725 08 Sep, 2016 Streptococcal meningitis G00.2 [place] [id number] [place] [address] 47350- 5818 07 Dec, 2016 Streptococcal meningitis G00.2 [place] [address] [address]- 4123 07 Dec, 2016 [facility] [place] [id number] [place] [address] 57127- 2545 06 Dec, 2016 Streptococcal meningitis G00.2 [place] [id number] [place] [address] 66440- 0681 06 Dec, 2016 [facility] [place] [id number] [place] [address] 70551- 4999 06 Sep, 2016 Major depressive disorder, recurrent episode with anxious distress F33.9 [place] [id number] [place] [address] 25015- 8932 Nov, Fever, unspecified fever cause R50.9 [facility], [place] [id number] [place] [address] 95103- 3291 Nov, [facility] [place] [id number] [place] [address] 44529- 6839 Nov, Hypothyroid E03.9 [facility] [place] [id number] [place] [address] 58595- 9112 Nov, Generalized anxiety disorder F41.1 and Major depressive disorder, recurrent episode with anxious distress F33.9 [facility], [place] [id number] [place] [address] 92949- 0746 Nov, [facility] [id number] [place] [address] [id number] Oct, Dental examination Z01.20 [facility] [place] [id number] [place] [address] 33500- 0041 Oct, Generalized anxiety disorder F41.1 and Major depressive disorder, recurrent episode with anxious distress F33.9 [facility] [place] [id number] [place] [address] 28334- 4796 Oct, Chronic kidney disease, stage 4 (severe) N18.4 [facility], [place] [id number] [place] [address] 85136- 1326 Oct, [facility] [place] [id number] [place] [address] 67291- 9423 Oct, Fibromyalgia M79.7 [facility], [place] [id number] [place] [address] 96330- 2704 Oct, [facility] [place] [id number] [place] [address] 72415- 8020 Oct, Generalized anxiety disorder F41.1 ; Major depressive disorder, recurrent episode with anxious distress F33.9 and Bipolar disorder, current episode manic without psychotic features F31.10 [facility] [place] [id number] [place] [address] 55487- 0987 Sep, [place] [address], [place] [address]- 1173 Sep, [place] [id number] [place] [address] 99032- 1512 15 Sep, 2016 Vitamin D deficiency E55.9 [place] [address], [place] [address]- 5982 14 Sep, 2016 Vitamin D deficiency E55.9 [place] [address], [place] [address]- 2088 Sep, [place] [id number] [place] [address] 92997- 6535 07 Sep, 2016 Chronic kidney disease, stage 4 (severe) N18.4 ; Hypothyroid E03.9 ; Restless leg G25.81 ; Fibromyalgia M79.7 ; Essential ( primary) hypertension I10 ; Vitamin D deficiency E55.9 ; Dyspepsia R10.13 ; Anemia in chronic kidney disease D63.1 ; Chronic kidney disease, unspecified N18.9 ; Coronary artery disease involving [place] coronary artery of [place] heart , angina presence unspecified I25.10 ; Screening breast examination Z12.39 and Low back pain M54.5 [place] [address], [place] [address]- 5746 August, Generalized anxiety disorder F41.1 and Major depressive disorder, recurrent episode with anxious distress F33.9 [place] [address], [place] [address]- 7448 August, Generalized anxiety disorder F41.1 and Major depressive disorder, recurrent episode with anxious distress F33.9 [place] [address], [place] [address]- 7028 August, Fibromyalgia M79.7 [place] [id number] [place] [address] 23155- 9471 Jul, Generalized anxiety disorder F41.1 and Major depressive disorder, recurrent episode with anxious distress F33.9 [place] [address], [place] [address]- 7275 Jul, Fibromyalgia M79.7 [place] [id number] [place] [address] 42639- 0709 Jul, Generalized anxiety disorder F41.1 [place] [id number] [place] [address] 72237- 3401 May, [place] [id number] [place] [address] 44478- 2204 May, Hypothyroid E03.9 [place] [id number] [place] [address] 55845- 8402 May, Chronic kidney disease, stage 4 (severe) N18.4 ; Hypothyroid E03.9 ; Restless leg G25.81 ; Fibromyalgia M79.7 ; Essential ( primary) hypertension I10 ; Vitamin D deficiency E55.9 ; Dyspepsia R10.13 ; Acute non-recurrent maxillary sinusitis J01.00 ; Anemia in chronic kidney disease D63.1 ; Chronic kidney disease, unspecified N18.9 and Coronary artery disease involving [place] coronary artery of [place] heart, angina presence unspecified I25.10 [place] [id number] [place] [address] 40327- 0135 May, Vitamin D deficiency, unspecified E55.9 [place] [address] [place] [address] 30352- 1176 May, Generalized anxiety disorder F41.1 and Major depressive disorder, recurrent episode with anxious distress F33.9 [place] [id number] [place] [address] 53730- 1228 Apr, Pain in right knee M25.561 and Pain in left knee M25.562 [place] [id number] [place] [address] 75366- 8310 Apr, [place] [id number] [place] [address] 26676- 5012 Apr, [facility] [place] [id number] [place] [address] 53694- 4412 Apr, [place] [id number] [place] [address] 89836- 4100 Mar, Generalized anxiety disorder F41.1 and Major depressive disorder, recurrent episode with anxious distress F33.9 [place] [id number] [place] [address] 85947- 1221 Mar, Generalized anxiety disorder F41.1 and Major depressive disorder, recurrent episode with anxious distress F33.9 [place] [id number] [place] [address] 96460- 5870 Mar, [place] [id number] [place] [address] 32337- 0654 Mar, [place] [id number] [place] [address] 74134- 5546 Mar, [place] [id number] [place] [address] 42750- 3027 Mar, Asthma J45.909 and Fibromyalgia M79.7 [place] [id number] [place] [address] 11210- 2646 Mar, Chronic kidney disease, stage 4 (severe) N18.4 ; Vitamin D deficiency E55.9 and Essential (primary) hypertension I10 [place] [id number] [place] [address] 08509- 5435 Feb, [place] [id number] [place] [address] 63811- 1761 Feb, Dysuria R30.0 ; Mixed stress and urge urinary incontinence N39.46 ; Fibromyalgia M79.7 and Chronic kidney disease, stage IV (severe) N18.4 [place] [id number] [place] [address] 51323- 7515 Feb, Chronic kidney disease, stage 4 (severe) N18.4 [place] [address] [place] [address]- 8504 Feb, Chronic kidney disease, stage 4 (severe) N18.4 [place] [address] 51572- 6060 Feb, [facility] [place] [id number] [place] [address] 56812- 4252 Feb, Vitamin D deficiency, unspecified E55.9 [place] [id number] [place] [address] 69266- 5448 Jan, [facility] [place] [id number] [place] [address] 52054- 9724 Jan, [place] [id number] [place] [address] 52527- 7537 Dec, [place] [id number] [place] [address] 48258- 9659 Dec, Chronic kidney disease, stage 4 (severe) N18.4 [place] [id number] [place] [address] 17895- 8971 Dec, Dysthymic disorder F34.1 and Generalized anxiety disorder F41.1 [place] [id number] [place] [address] 81481- 6779 Dec, [place] [id number] [place] [address] 21948- 8840 Dec, [place] [id number] [place] [address] 63157- 3303 Dec, Dysthymic disorder F34.1 and Generalized anxiety disorder F41.1 [place] [id number] [place] [address] 76451- 0399 Dec, Dysuria R30.0 ; Chronic kidney disease, stage 4 (severe) N18.4 ; Hypertension I10 ; Dyspepsia R10.13 ; Yeast dermatitis B37.2 ; Palpitations R00.2 ; Hypothyroid E03.9 ; Functional 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 and Other seasonal allergic rhinitis J30.2 [facility] [address] 25976 -7073 Dec, [facility] [address] [address] Nov, Dysuria R30.0 and Stress incontinence N39.3 [place] [address] [address] Nov, [place] [address] [address] Nov, [place] [address] [address] Nov, Osteoarthritis of knees, bilateral M17.0 [place] [address] [address] Nov, Dysthymic disorder F34.1 and Generalized anxiety disorder F41.1 [place] [address] [address] Nov, [place] [address] [address] Nov, [place] [address] [address] [place] [id number] [place] [address] Nov, Urgency of urination R39.15 [place] [address] [address] Nov, [place] [address] [address] [place] [id number] [place] [address] Nov, Chronic kidney disease, stage 4 (severe) N18.4 [place] [address] [address] Oct, Hypertension I10 ; Coronary artery disease involving [place] coronary artery of [place] heart, angina presence unspecified I25.10 ; Palpitations R00.2 ; Hypothyroid E03.9 ; Right foot pain M79.671 ; Functional 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 and Other seasonal allergic rhinitis J30.2 [place] [id number] [place] [id number] [place] [address] Oct, Dysthymic disorder F34.1 and Generalized anxiety disorder F41.1 [place] [address] [address] [place] [id number] [place] [address] Sep, [facility], [place] [address] [address] Sep, [place] [address] [address] [place] [id number] [place] [address] Sep, [place] [address] [address] Sep, [place] [address] [address] Sep, [place] [address] [address] [place] [id number] [place] [address] Sep, Dysthymic disorder F34.1 and Generalized anxiety disorder F41.1 [place] [address] [address] 16 Sep, 2015 Asthma with acute exacerbation in adult J45.901 ; Dysuria R30.0 ; Chronic kidney disease, stage 4 (severe) N18.4 and History of anemia Z86.2 [place] [address] [address] [place] [id number] [place] [address] Sep, Generalized anxiety disorder F41.1 and Dysthymic disorder F34.1 [place] [address] [address] [place] [id number] [place] [address] August, Screening breast examination Z12.39 and Acute recurrent maxillary sinusitis J01.01 [place] [address] [address] [place] [id number] [place] [address] August, Osteoarthritis of knees, bilateral M17.0 [place] [address] [address] [place] [id number] [place] [address] August, Chronic kidney disease, stage 4 (severe) N18.4 ; Acute non- recurrent maxillary sinusitis J01.00 ; Urinary problem R39.89 ; Bowel habit changes R19.4 ; Functional 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 and History of colon polyps Z86.010 [place] [id number] [place] [address] 50640- 9768 Jul, Dysthymic disorder F34.1 and Generalized anxiety disorder F41.1 [place] [address] [place] [id number] [place] [address] 38109- 9838 Jul, [place] [address] [place] [id number] [place] [address] 07463- 3762 Jul, Dysthymic disorder F34.1 ; Generalized anxiety disorder F41.1 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 [place] [address] [place] [id number] [place] [address] 17898- 4303 Jul, [place] [address] [place] [id number] [place] [address] 25535- 6680 Jun, [place] [address] [place] [id number] [place] [address] 42327- 5706 08 Jun, 2015 [place] [address] [place] [id number] [place] [address] 26543- 8940 17 May, 2015 [place] [address] [place] [id number] [place] [address] 77108- 0732 May, Dysthymic disorder F34.1 and Generalized anxiety disorder F41.1 [place] [address] [place] [id number] [place] [address] 27668- 6885 Apr, Kidney disease N28.9 [place] [address] [place] [id number] [place] [address] 74107- 4037 Apr, Generalized anxiety disorder F41.1 and Dysthymic disorder F34.1 [place] [address] [place] [id number] [place] [address] 43835- 0145 Apr, Chronic kidney disease, stage 4 (severe) N18.4 [place] [address] 10636- 7719 Apr, Generalized anxiety disorder F41.1 ; Major depression, recurrent F33.9 and Sleep disturbance G47.9 [place] [address] 76094- 3504 Mar, Generalized anxiety disorder F41.1 and Dysthymic disorder F34.1 [place] [address] 57815- 1039 Mar, Generalized anxiety disorder F41.1 ; Dysthymic disorder F34.1 and Insomnia G47.00 [place] [address] 10797- 1992 Mar, [address] 95951- 2346 Mar, [place] [address] 64074- 3048 Mar, Osteoarthritis of knees, bilateral M17.[address] 13185- 0231 Mar, Hypertension I10 ; Hypothyroid E03.9 ; Dysthymic disorder F34.1 ; Chronic kidney disease, stage 4 (severe) N18.4 and Nausea & vomiting R11.2 [place] [address] 14344- 2858 Mar, Generalized anxiety disorder F41.1 ; Dysthymic disorder F34.1 and Insomnia G47.[address] 70599- 6707 Mar, Dehydration E86.0 ; Chronic kidney disease, stage 4 (severe ) N18.4 and Nausea & vomiting R11.2 [facility] [address] 74118 -5172 Mar, Gastroenteritis K52.9 [place] [address] [place] [id number] [place] [address] 66061- 3429 Mar, [place] [address] [place] [id number] [place] [address] 17809- 5124 Mar, [place] [id number] [place] [address] 03937- 2041 Feb, Dysthymic disorder F34.1 and Generalized anxiety disorder F41.1 [place] [address] [place] [id number] [place] [address] 77788- 7218 Jan, UTI (urinary tract infection) N39.0 ; Asthma J45.909 ; Coronary artery disease involving [place] coronary artery of [place] heart, angina presence unspecified I25.10 ; Hypertension I10 ; Hypothyroid E03.9 ; Vitamin D deficiency E55.9 ; Insomnia G47.00 ; Palpitations R00.2 ; Depressed F32.9 ; Restless leg G25.81 and Anxiety F41.9 [place] [id number] [place] [address] 69616- 3326 Jan, Dysthymic disorder F34.1 and Generalized anxiety disorder F41.1 [place] [id number] [place] [address] 37901- 9099 Jan, [place] [id number] [place] [address] 09928- 2141 Dec, [place] [id number] [place] [address] 13140- 6527 28 Dec, 2014 Alkalosis 276.3 ; Chronic kidney disease, 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.4 ; Hyperpotassemia 276.7 ; Secondary hyperparathyroidism, renal 588.81 ; Proteinuria 791.0 ; Unspecified vitamin D deficiency 268.9 ; Anemia in chronic kidney disease 285.21 ; Other and unspecified hyperlipidemia 272.4 ; Hypertension, essential, benign 401.1 and Chronic kidney disease (CKD), stage III (moderate) 585.3 [place] [id number] [place] [address] 06955- 8277 Dec, [place] [id number] [place] [address] 73150- 2824 Dec, Depressive disorder, not elsewhere classified 311 and Generalized anxiety disorder 300.02 [place] [id number] [place] [address] 98494- 7154 Dec, [place] [id number] [place] [address] 38636- 4550 Dec, [place] [address] [place] [id number] [place] [address] 62714- 5055 Nov, Depressive disorder, not elsewhere classified 311 and Generalized anxiety disorder 300.02 [place] [id number] [place] [address] 41510- 4227 Nov, Arthritis of both knees 716.[address] 75222- 5648 Nov, PAF (paroxysmal atrial fibrillation) 427.31 ; CAD (coronary artery disease) 414.00 ; Chest pain 786.50 and Chronic kidney disease (CKD) stage G4/A1, severely decreased glomerular filtration rate (GFR) between 15-29 mL/min/1.73 square meter and albuminuria creatinine ratio less than 30 mg/g 585.4 [address] [place] [address] 81563- 3885 Oct, Coronary atherosclerosis of unspecified type of vessel, [place] or graft 414.00 ; Chronic kidney disease, 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.4 ; Hypertension 401.9 and Edema 782.3 [address] [place] [address] 80869- 6908 Oct, Depressive disorder, not elsewhere classified 311 and Generalized anxiety disorder 300.02 [place] [address] [place] [id number] [place] [address] 18416- 0204 Oct, Depressive disorder, not elsewhere classified 311 and Generalized anxiety disorder 300.02 [place] [id number] [place] [address] 33585- 1755 Oct, [facility] [place] [address] [place] [id number] [place] [address] 10850- 5061 Oct, [facility] [place] [address] 41552- 7052 Sep, [facility] [place] [address] [place] [id number] [place] [address] 95381- 4591 Sep, Chronic kidney disease, 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.4 [facility] [place] [address] 32978- 3388 Sep, [facility] [place] [address] 99333- 5211 Sep, Coronary atherosclerosis of unspecified type of vessel, [place] or graft 414.00 ; Hypertension 401.9 ; Edema 782.3 and Hypothyroidism 244.9 [place] [address] 75729- 8343 Sep, Coronary atherosclerosis of unspecified type of vessel, [place] or graft 414.00 ; Hypertension 401.9 ; Fibromyalgia 729.1 ; Edema 782.3 ; Hypothyroidism 244.9 and Anemia 285.9 [facility] [place] [address] [place] [id number] [place] [address] 06244- 2409 Sep, Anxiety disorder, unspecified 300.00 and Depressive disorder , not elsewhere classified 311 [facility], [place] [address] [place] [id number] [place] [address] 98291- 3117 Sep, [facility] [place] [address] [place] [id number] [place] [address] 45540- 1151 August, Generalized anxiety disorder 300.02 [facility] [place] [address] 45865- 3742 August, Closed fracture of lateral malleolus 824.2 [facility], [place] [address] [place] [id number] [place] [address] 37218- 0912 Jul, [facility], [place] [address] 29387- 8999 Jul, [facility] [place] [facility] [address] [id number] [place] [address]- 6282 Jun, [facility] [place] [facility] [address] [id number] [place] [address]- 7429 Jun, [facility] [place] [facility] [address] [facility] [id number] [place] [address]- 6830 Jun, [facility] [place] [facility] [address] [facility] [id number] [place] [address]- 8025 Jun, [facility] [place] [facility] [address] [id number] [place] [address]- 5902 Jun, [facility] [place] [facility] [address] [id number] [place] [address]- 8747 Jun, [facility] [place] [facility] [address] [facility] [id number] [place] [address]- 3558 19 May, 2014 [facility] [place] [facility] [address] [facility] [id number] [place] [address]- 5792 19 May, 2014 [facility] [place] [facility] [address] [facility] [id number] [place] [address]- 2133 18 May, 2014 [facility] [place] [facility] [address] [facility] [id number] [place] [address]- 9397 18 May, 2014 [facility] [place] [facility] [address] [facility] [id number] [place] [address]- 9658 16 May, 2014 [facility] [place] [facility] [address] [facility] [id number] [address]- 8182 16 May, 2014 [facility] [place] [facility] [address] [facility] [id number] [place] [address]- 5459 13 May, 2014 [facility] [place] [facility] [address] [facility] [id number] [place] [address]- 3356 13 May, 2014 [facility] [place] [facility] [address] [facility] [id number] [place] [address]- 4991 10 May, 2014 [facility] [place] [facility] [address] [id number] [place] [address]- 2433 May, [facility] [place] [facility] [address] [id number] [place] [address]- 5297 Apr, [facility] [place] [facility] [address] [id number] [place] [address]- 8448 Apr, [facility] [place] [facility] [address] [id number] [place] [address]- 4889 Mar, [facility] [place] [facility] [address] [id number] [place] [address]- 7207 Mar, [facility] [place] [facility] [address] [id number] [place] [address]- 1359 Mar, [facility] [place] [facility] [address] [id number] [place] [address]- 7135 Mar, [facility] [place] [facility] [address] [id number] [place] [address]- 6775 Mar, [facility] [place] [facility] [address] [id number] [place] [address]- 2848 Mar, [facility] [place] [facility] [address] [id number] [place] [address]- 2966 Mar, [facility] [place] [facility] [address] [id number] [place] [address]- 3508 Feb, [facility] [place] [facility] [address] [id number] [place] [address]- 9254 Feb, [facility] [place] [facility] [address] [id number] [place] [address]- 8720 Feb, [facility] [place] [facility] [address] [id number] [place] [address]- 4384 Jan, [facility] [place] [facility] [address] [id number] [place] [address]- 8925 Jan, [facility] [place] [facility] [address] [id number] [place] [address]- 9991 Jan, [facility] [place] [facility] [address] [id number] [place] [address]- 0721 Jan, [facility] [place] [facility] [address] [id number] [place] [address]- 9000 Jan, [facility] [place] [facility] [address] [id number] [place] 7331 Jan, [facility] [place] [facility] [address] [id number] [place] [address]- 3355 Jan, [facility] [place] [facility] [address] [id number] [place] [address]- 9296 Jan, [facility] [place] [facility] [address] [id number] [place] [address]- 0434 Jan, [facility] [place] [facility] [address] [id number] [place] [address]- 3934 Jan, [facility] [place] [facility] [address] [id number] [place] [address]- 9887 Nov, [facility] [place] [facility] [address] [id number] [place] [address]- 5604 Nov, [facility] [place] [facility] [address] [id number] [place] [address]- 7031 Nov, [facility] [place] [facility] [address] [id number] [place] [address]- 8550 Oct, [facility] [place] [facility] [address] [id number], [place] [address]- 9843 Oct, [facility] [place] [facility] [address] [id number] [place] [address]- 7484 Oct, [facility] [place] [facility] [address] [id number] [place] [address]- 2297 Oct, [facility] [place] [facility] [address] [id number] [place] [address]- 9557 Oct, [facility] [place] [facility] [address] [id number] [place] [address]- 4069 Oct, [facility] [place] [facility] [address] [id number] [place] [address]- 8323 Oct, [facility] [place] [facility] [address] [id number] [place] [address]- 8741 Oct, [facility] [place] [facility] [address] [id number] [place] [address]- 2623 Oct, [facility] [place] [facility] [address] [id number] [place] [address]- 7341 Sep, [facility] [place] [facility] [address] [id number] [place] [address]- 0500 Sep, [facility] [place] [facility] [address] [id number] [place] [address]- 5085 Sep, [facility] [place] [facility] [address] [id number] [place] [address]- 0502 Sep, [facility] [place] [facility] [address] [id number] [place] [address]- 2913 Sep, [facility] [place] [facility] [address] [id number] [place] [address]- 7968 Sep, [facility] [place] [facility] [address] [id number] [place] [address]- 6777 Sep, [facility] [place] [facility] [address] [id number] [place] [address]- 0514 Sep, [facility] [place] [facility] [address] [id number] [place] [address]- 0846 Sep, [facility] [place] [facility] [address] [id number] [place] [address]- 9354 August, [facility] [place] [facility] [address] [id number] [place] [address]- 3498 August, [facility] [place] [facility] [address] [id number] [place] 0867 August, [facility] [place] [facility] [address] [id number] [place] [address]- 4988 August, [facility] [place] [facility] [address] [id number] [place] [address]- 2892 August, [facility] [place] [facility] [address] [id number] [place] [address]- 8590 August, [facility] [place] [facility] [address] [id number] [place] [address]- 0247 Jul, [facility] [place] [facility] [address] [id number] [place] [address]- 4782 Jul, [facility] [place] [facility] [address] [id number] [place] [address]- 9511 Jul, [facility] [place] [facility] [address] [id number] [place] [address]- 5154 Jul, [facility] [place] [facility] [address] [id number] [place] [address]- 2238 Jul, [facility] [place] [facility] [address] [id number] [place] [address]- 0274 Jul, [facility] [place] [facility] [address] [id number] [place] [address]- 0697 Jun, [facility] [place] [facility] [address] [id number] [place] [address]- 4611 Jun, [facility] [place] [facility] [address] [id number], [place] [address]- 3985 May, [facility] [place] [facility] [address] [id number] [place] [address]- 1130 May, [facility] [place] [facility] [address] [id number] [place] [address]- 5657 May, [facility] [place] [facility] [address] [id number] [place] [address]- 5732 May, [facility] [place] [facility] [address] [id number], [place] [address]- 5848 Apr, [facility] [address] [id number] [place] [address]- 6112 Apr, [facility] [place] [facility] [address] [facility] [id number] [place] [address]- 3985 Mar, [facility] [address] [facility] [id number] [place] [address]- 3194 Mar, [facility] [place] [facility] [address] [facility] [id number] [place] [address]- 3970 Mar, [facility] [address] [facility] [id number] [place] [address]- 8120 Mar, [facility] [place] [facility] [address] [facility] [id number] [place] [address]- 0797 Mar, [facility] [address] [address]- 1781 Mar, [facility] [place] [facility] [address] [facility] [id number] [place] [address]- 5416 Feb, [facility] [place] [facility] [address] [place] [id number] [place] [address]- 9679 Feb, [facility] [place] [facility] [address] [place] [id number], [place] [address]- 2973 Feb, [facility] [place] [facility] [address] [facility] [id number], [place] [address]- 7116 Feb, [facility] [place] [facility] [address] [facility] [id number], [place] [address]- 5668 Feb, [facility] [place] [facility] [address] [facility] [id number], [place] [address]- 6563 Feb, [facility] [place] [facility] [address] [facility] [id number], [place] [address]- 6806 Jan, [facility] [place] [facility] [address] [place] [address] [id number], [place] [address]- 8254 Jan, [facility] [place] [facility] [address] [id number] [place] [address]- 9435 10 Jan, 2013 [facility] [place] [facility] [address] [id number] [place] [address]- 3662 Jan, [facility] [place] [facility] [address] [id number] [place] [address] 2544 08 Jan, 2013 [facility] [place] [facility] [address] [id number] [place] [address]- 7102 Jan, [facility] [place] [facility] [address] [id number] [place] [address]- 7128 Dec, [facility] [place] [facility] [address] [id number] [place] [address]- 5948 Dec, [facility] [place] [facility] [address] [id number] [place] [address]- 8926 Nov, [facility] [place] [facility] [address] [id number] [place] [address]- 7607 Nov, [facility] [place] [facility] [address] [id number] [place] [address]- 8269 Oct, [facility] [place] [facility] [address] [id number] [place] [address]- 1808 Oct, [facility] [place] [facility] [address] [id number] [place] [address]- 5764 Oct, [facility] [place] [facility] [address] [id number] [place] [address]- 6328 Oct, [facility] [place] [facility] [address] [id number] [place] [address]- 5319 Oct, [facility] [place] [facility] [address] [id number] [place] [address]- 3374 Oct, [facility] [place] [facility] [address] [id number] [place] [address]- 4443 Sep, [facility] [place] [facility] [address] [id number] [place] [address]- 9799 Sep, [facility] [address] [id number] [place] [address]- 4651 Sep, [facility] [address] [id number] [place] [address]- 8779 Sep, [facility] [address] [id number] [place] [address]- 8813 August, [facility] [address] [id number] [place] [address]- 8649 August, [facility] [address] [id number] [place] [address]- 3437 August, [facility] [address] [id number] [place] [address]- 6656 August, [facility] [address] [id number] [place] [address]- 5957 August, [facility] [address] [id number] [place] [address]- 4357 Jul, [facility] [address] [id number] [place] [address]- 5358 Jul, [facility] [address] [id number] [place] [address]- 7281 Jul, [facility] [address] [id number] [place] [address]- 6474 Jul, [facility] [place] [facility] [address] [id number], [place] [address]- 1378 Jul, [facility] [place] [facility] [address] [id number] [place] [address] Jul, [facility] [place] [facility] [address] [id number] [place] [address] Jul, [facility] [place] [facility] [address] [id number] [place] [address] Jul, [facility] [place] [facility] [address] [id number] [place] [address] Jul, [facility] [address] [facility] [id number] [place] [address] Jul, [facility] [address] [facility] [id number] [id number] Jun, [facility] [address] [id number] [place] [address] Jun, [facility] [address] [facility] [id number] [place] [address] Jun, [facility] [address] [id number] [place] [address] Jun, [facility] [address] [id number] [place] [address] Jun, [facility] [address] [id number] [place] [address] May, [facility] [address] [id number] [place] [address] May, [facility] [address] [id number] [place] [address] May, [facility] [address] [id number] [place] [address] Apr, [facility] [address] [id number] [place] [address] Apr, [facility] [address] [id number], [place] [address] Apr, [facility] [address] [facility] [id number], [place] [address] Apr, [facility] [address] [facility] [id number], [place] [address] Apr, [facility] [address] [id number], [place] [address] Apr, [facility] [place] [facility] [address] [id number] [place] [address] Mar, [facility] [place] [facility] [address] [id number] [place] [address] Mar, [facility] [place] [facility] [address] [id number] [place] [address] Mar, [facility] [place] [facility] [address] [id number] [place] [address] Mar, [facility] [place] [facility] [address] [id number] [place] [address] Feb, [facility] [place] [facility] [address] [id number] [place] [address] Feb, [facility] [place] [facility] [address] [id number] [place] [address] Feb, [facility] [place] [facility] [address] [id number] [place] [address] Feb, [facility] [place] [facility] [address] [id number] [place] [address] Feb, [facility] [place] [facility] [address] [id number] [place] [address] Feb, [facility] [place] [facility] [address] [id number] [place] [address] Feb, [facility] [place] [facility] [address] [id number] [place] [address] Feb, [facility] [place] [facility] [address] [id number] [place] [address]146 Feb, [facility] [place] [facility] [address] [id number] [place] [address] Feb, [facility] [place] [facility] [address] [id number] [place] [address] Feb, [facility] [place] [facility] [address] [id number] [place] [address] Feb, [facility] [place] [facility] [address] [id number] [place] [address] Feb, [facility] [place] [facility] [address] [id number], [place] [address] Feb, [facility] [place] [facility] [address] [facility] [id number] [place] [address] Feb, [facility] [place] [facility] [address] [id number], [place] [address] Feb, [facility] [place] [facility] [address] [id number] [place] [address] Jan, [facility] [place] [facility] [address] [id number], [place] [address] Jan, [facility] [place] [facility] [address] [id number], [place] [address] Jan, [facility] [place] [facility] [address] [id number], [place] [address] Jan, [facility] [place] [facility] [address] [id number], [place] [address] 30 Jan, 2012 [facility] [place] [facility] [address] [facility] [id number], [place] [address] Jan, [facility] [place] [facility] [address] [id number], [place] [address]- [address] 25 Jan, 2012 [facility] [place] [facility] [address] [id number], [place] [address]- 6[address] 16 Jan, 2012 [facility] [place] [facility] [address] [id number], [place] [address] 16 Jan, 2012 [facility] [place] [facility] [address] [facility] [id number][place] [address] 15 Jan, 2012 [facility] [place] [facility] [address] [facility] [id number], [place] [address]- [address] 15 Jan, 2012 [facility] [place] [facility] [address] [id number] [place] [address]- [address]36 01 Jan, 2012 [facility] [address] [id number] [place] [address] 26 Sep, 2011 [facility] [place] [facility] [address] [id number] [place] [address] 2546 26 Sep, 2011 [facility] [address] [id number] [place] [address] 2546 24 Sep, 2011 [facility] [place] [facility] [address] [id number] [place] [address] 2546 23 Sep, 2011 [facility] [place] [facility] [address] [id number] [place] [address]26 22 Sep, 2011 [facility] [place] [facility] [address] [id number] [place] [address] 21 Dec, 2011 [facility] [address] [id number] [place] [address] 2546 20 Dec, 2011 [facility] [address] [id number] [place] [address] 20 Sep, 2011 [facility] [place] [facility] [address] [id number] [place] [address] 2540 07 Sep, 2011 [facility] [address] [id number] [place] [address] 2540 06 Sep, 2011 [facility] [place] [facility] [address] [id number] [place] [address] 2546 06 Sep, 2011 [facility] [place] [facility] [address] [id number] [place] [address] 2540 05 Sep, 2011 [facility] [place] [facility] [address] [id number] [place] [address] 2547 23 Nov, 2011 [facility] [place] [facility] [address] [id number] [place] [address] 2546 17 Nov, 2011 [facility] [place] [facility] [address] [id number] [place] [address] Nov, [facility] [place] [facility] [address] [id number] [place] [address] Nov, [facility] [place] [facility] [address] [id number] [place] [address] Nov, [facility] [place] [facility] [address] [id number] [place] [address]- 5765 Nov, [facility] [place] [facility] [address] [id number] [place] [address] 1686 Nov, [facility] [place] [facility] [address] [id number] [place] [address] 9459 Nov, [facility] [place] [facility] [address] [id number] [place] [address] 7916 Oct, [facility] [place] [facility] [address] [id number] [place] [address] Oct, [facility] [place] [facility] [address] [id number] [place] [address] 4743 Oct, [facility] [place] [facility] [address] [id number] [place] [address]757 Oct, [facility] [place] [facility] [address] [id number] [place] [address] 5[address] Oct, [facility] [place] [facility] [address] [id number] [place] [address]- [address]15 Oct, [facility] [place] [facility] [address] [id number] [place] [address] 6565 Oct, [facility] [place] [facility] [address] [id number] [place] [address] Sep, [facility] [place] [facility] [address] [id number] [place] [address] 60[address] Sep, [facility] [place] [facility] [address] [id number] [place] [address] August, [facility] [place] [facility] [address] [id number] [place] [address]- [address] August, [facility] [address] [id number] [place] [address] 96[address] August, [facility] [place] [facility] [address] [id number] [place] [address] August, [facility] [place] [facility] [address] [id number] [place] [address] 288[address] Jul, [facility] [place] [facility] [address] [id number] [place] [address] 89[address] Jul, [facility] [place] [facility] [address] [id number] [place] [address] 7957 Jul, [facility] [place] [facility] [address] [id number] [place] [address] 2046 Jul, [facility] [address] [id number] [place] [address] 38[address] Jul, [facility] [place] [facility] [address] [id number] [place] [address] 295[address] Jul, [facility] [place] [facility] [address] [id number] [place] [address] 8522 Jul, [facility] [place] [facility] [address] [id number] [place] [address] 8557 Jul, [facility] [place] [facility] [address] [id number] [place] [address]- 5203 Jul, [facility] [place] [facility] [address] [id number] [place] [address]- [address] 23 Jun, 2011 [facility] [place] [facility] [address] [id number] [place] [address] 3[address] 19 Jun, 2011 [facility] [place] [facility] [address] [id number] [place] [address] 15 Jun, 2011 [facility] [place] [facility] [address] [id number] [place] [address]- 6839 14 Jun, 2011 [facility] [place] [facility] [address] [id number] [place] [address]- 57[address] Jun, [facility] [address] [id number] [place] [address]- 3735 Jun, [facility] [place] [facility] [address] [id number] [place] [address]- 6406 Jun, [facility] [address] [id number] [place] [address] 5706 May, [facility] [place] [facility] [address] [id number] [place] [address] 0663 May, [facility] [place] [facility] [address] [id number] [place] [address] 0449 May, [facility] [address] [id number] [place] [address]- 8678 May, [facility] [address] [id number] [place] [address]- 7984 May, [facility] [address] [id number] [place] [address]- 6929 Apr, [facility] [address] [id number] [place] [address]- 9883 Apr, [facility] [place] [facility] [address] [id number] [place] [address]- 9189 Apr, [facility] [address] [id number] [place] [address]- 1192 Apr, [facility] [place] [facility] [address] [id number] [place] [address]- [address] Apr, [facility] [place] [facility] [address] [id number] [place] [address]- 116[address] Mar, [facility] [place] [facility] [address] [id number] [place] [address]- 7334 Mar, [facility] [place] [facility] [address] [id number] [place] [address]- 8076 Mar, [facility] [place] [facility] [address] [id number] [place] [address] Mar, [facility] [place] [facility] [address] [id number] [place] [address]- 4860 Mar, [facility] [place] [facility] [address] [id number] [place] [address]- 6984 Mar, [facility] [place] [facility] [address] [id number] [place] [address]- 3457 Mar, [facility] [place] [facility] [address] [id number] [place] [address]- 1831 Feb, [facility] [place] [facility] [address] [id number] [place] [address]- 1484 Feb, [facility] [place] [facility] [address] [id number] [place] [address]- 5537 Feb, [facility] [place] [facility] [address] [id number] [place] [address]- 0061 Feb, [facility] [place] [facility] [address] [id number] [place] [address]- 3170 Jan, [facility] [place] [facility] [address] [id number] [place] [address]- 6309 Jan, [facility] [place] [facility] [address] [id number], [place] [address] Jan, [facility] [place] [facility] [address] [id number] [place] [address]- 4539 Jan, [facility] [place] [facility] [address] [id number] [place] [address]- 8780 Nov, [facility] [place] [facility] [address] [id number] [place] [address]- 1098 Mar, [facility] [place] [facility] [address] [id number] [place] [address]- 6863 Mar, [facility] [place] [facility] [address] [id number] [address] Mar, [facility] [place] [address] [id number] [address] Mar, [facility] [place] [id number], [place] [address] 25[address] Mar, [facility] [place] [id number], [place] [address]168 Mar, [facility] [place] [id number], [place] [address]28 Feb, [facility] [place] [id number] [place] [address]- [address] Feb, [facility] [place] [id number], [place] [address] Jan, [facility] [place] [id number], [place] [address]- 1746 Jan, [facility] [place] [address] [id number], [place] [address] Jan, IMMUNIZATIONS No Known Immunizations SOCIAL HISTORY [...] History Bladder surgery [facility] 03/2016 Hospitalization History Surgeries Only Hospitalization History 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
--- OUTSIDE RECORDS SUMMARY | 2018-05-29 08:07 | XMS REPORT ---
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 Name Role Phone IMANI VILLASEÑOR Unavailable PROBLEMS Type Condition ICD9-CM Code NRU55-EY Code Onset Dates Condition Status SNOMED Code Problem Long-term use of high-risk medication Z79.899 Active 023357176 Problem Abnormal chest CT R93.8 Active 933902646 Problem Low back pain M54.5 Active 735236109 Problem Generalized anxiety disorder F41.1 Active 39282601 Problem Dysthymic disorder F34.1 Active 30497970 Problem Coronary artery disease involving three affiliated coronary artery of three affiliated heart, angina presence unspecified I25.10 Active 7377944713859 Problem Depressed F32.9 Active 42596214 Problem Fibromyalgia M79.7 Active 036878429 Problem Hypothyroid E03.9 Active 15293283 Problem Essential (primary) hypertension I10 Active 87492375 Problem Insomnia G47.00 Active 449132324 Problem Vitamin D deficiency E55.9 Active 14280736 Problem Anemia in chronic kidney disease D63.1 Active [id number] Problem Chronic kidney disease, unspecified N18.9 Active 079455667 Problem Body mass index (BMI) of 40.0-44.9 in adult Z68.41 Active 406836929 Problem Stage 3 chronic kidney disease N18.3 Active 437278182 Problem Restless leg G25.81 Active 27064548 Problem Palpitations R00.2 Active 25231855 Problem Asthma J45.909 Active 508075933 Problem Primary osteoarthritis of left knee M17.12 Active 635774073 Problem Bipolar disorder, current episode manic without psychotic features F31.10 Active 165813907 Problem Mood disorder F39 Active 70370885 Problem Degenerative tear of medial meniscus of left knee M23.204 Active 770146624 Problem History of colon polyps Z86.010 Active 536043876 Problem Asthma with acute exacerbation in adult J45.901 Active 604124280 Problem Chronic kidney disease, stage 4 (severe) N18.4 Active 663066114 Problem Functional 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 Active 99230608 Problem Hypokalemia E87.6 Active 40164053 Problem Mixed stress and urge urinary incontinence N39.46 Active 163525233 Problem History of anemia Z86.2 Active 478097109 Problem Other seasonal allergic rhinitis J30.2 Active 996440792 ALLERGIES No Known Allergies ENCOUNTERS Encounter Location Date Diagnosis [place] [address] [address] August, [place] [address] [address]75[address]755 Jul, [place] [address] 26534- 7841 Jul, Chronic kidney disease, stage 4 (severe) N18.4 [place] [address] 40855- 0983 Jul, [place] [address] 46704- 2412 Jul, Restless leg G25.81 ; Mixed stress and urge urinary incontinence N39.46 and Fibromyalgia M79.7 [place] [address] 77502- 3970 Jul, Chronic kidney disease, stage 4 (severe) N18.4 [place] [address] 9[address]00- 3713 Jun, Orthostatic hypotension I95.1 ; Chronic kidney disease, stage 4 (severe) N18.4 ; Chest wall discomfort R07.89 and Body mass index (BMI) of 40.0-44.9 in adult Z68.41 [place] [address] 03436- 9559 Jun, [place] [address] 85632- 6219 Jun, Orthostatic hypotension I95.1 [facility] [address] [place] [id number] [place] [address] 13864- 1300 Jun, [facility] [address] [address] Jun, Orthostatic hypotension I95.1 ; Dysuria R30.0 and Acute cystitis without hematuria N30.00 [facility] [address] [place] [id number] [place] [address] 64058- 8582 Jun, [facility] [address] 88810- 4557 Jun, Chronic kidney disease, stage 4 (severe) N18.4 [place] [address] 54462- 1819 Jun, Fibromyalgia M79.7 [facility] [address] 38847- 1771 Jun, [facility] [address] 12626- 0677 Jun, [facility] [place] [address] 67281- [address] May, [address] R93.8 and Stage 3 chronic kidney disease N18.3 [facility] [place] [address] [place] [id number] [place] [address] 30574- 5568 May, Chronic kidney disease, stage 4 (severe) N18.4 [facility] [place] [address] [place] [id number] [place] [address] 05566- 6754 May, Chronic kidney disease, stage 4 (severe) N18.4 [facility] [address] [place] [id number] [place] [address] 50080- [address] May, [address] R93.8 [facility] [place] [address] [place] [id number] [place] [address] 35435- 0357 May, [facility] [address] [place] [id number] [place] [address] 61676- 5191 May, [facility] [address] [place] [address] May, Generalized anxiety disorder F41.1 and Major depressive disorder, recurrent episode with anxious distress F33.9 [facility] [address] [place] [address] 1600 May, Mood disorder F39 [facility] [id number] [place] [address] 81099- 4009 Apr, [facility] [address] [place] [address]- 5[address] Apr, Infected skin lesion L08.9 and Muscle strain of right shoulder region, initial encounter S46.911A [place] [address] [place] [address] 2860 Apr, Generalized anxiety disorder F41.1 and Major depressive disorder, recurrent episode with anxious distress F33.9 [facility] [place] [address] [place] [address]- 7168 Apr, [facility] [id number] [place] [address] 85368- 2518 Apr, Recent urinary tract infection Z87.440 and Hypothyroid E03.9 [facility] [place] [address] [place] [id number] [address] Apr, Generalized anxiety disorder F41.1 and Major depressive disorder, recurrent episode with anxious distress F33.9 [facility] [place] [address] [place] [id number] [address]- 7266 Apr, Recent urinary tract infection Z87.440 [facility] [place] [address], [place] [address] 7069 Mar, [facility] [address] [place] [id number] [address] Mar, Dysuria R30.0 ; Acute cystitis without hematuria N30.00 and BMI 40.0-44.9, adult Z68.41 [place] [id number] [place] [address] 47796- 0301 14 Mar, 2017 [place] [address] [place] [id number] [place] [address] 45100- 5341 Mar, [place] [address] [place] [id number] [place] [address] 76358- 7767 Mar, Generalized anxiety disorder F41.1 and Major depressive disorder, recurrent episode with anxious distress F33.9 [place] [address] [place] [id number] [place] [address] 98362- 8972 Feb, Conjunctivitis, bacterial H10.9 [place] [address] [place] [id number] [place] [address] 74701- 8554 Feb, [facility] [address] [place] [id number] [place] [address] 97982 -8720 Feb, Conjunctivitis, bacterial H10.9 [place] [address] [place] [id number] [place] [address] 94842- 3167 Feb, [facility] [address] [place] [id number] [place] [address] 00191 -9249 Feb, Dysuria R30.0 ; Acute cystitis N30.00 and BMI 40.0-44.9, adult Z68.41 [place] [address] [place] [id number] [place] [address] 38660- 1683 Feb, [place] [address] [place] [id number] [place] [address] 78072- 7978 Feb, Generalized anxiety disorder F41.1 and Major depressive disorder, recurrent episode with anxious distress F33.9 [place] [address] [place] [id number] [place] [address] 25568- 8147 Feb, Mood disorder F39 and BMI 40.0-44.9, adult Z68.41 [place] [address] [place] [id number] [place] [address] 04351- 7714 Jan, [facility] [place] [address] [place] [id number] [place] [address] 72212- 2168 Jan, [facility] [place] [address] [place] [id number] [place] [address] 46072- 0506 Jan, Hypothyroid E03.9 [facility] [place] [address] [place] [id number] [place] [address] 97691- 7367 Jan, [facility] [address] [place] [id number] [place] [address] 41560- 2023 Jan, Chronic kidney disease, unspecified N18.9 ; Hypokalemia E87.6 ; Essential (primary) hypertension I10 ; Fibromyalgia M79.7 ; Coronary artery disease involving three affiliated coronary artery of three affiliated heart, angina presence unspecified I25.10 ; Hypothyroid E03.9 and Encounter for immunization Z23 [place] [address] [place] [id number] [place] [address] 79555- 4716 Jan, Hypothyroid E03.9 [facility] [place] [address] [place] [id number] [place] [address] 85855- 8277 Jan, [place] [address] [place] [id number] [place] [address] 70453- 1502 Dec, Vitamin D deficiency E55.9 [place] [address] [place] [id number] [place] [address] 02422- 8417 Dec, Primary osteoarthritis of left knee M17.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 [facility] [place] [id number] [place] [address] 39280- 2210 19 Dec, 2016 Fibromyalgia M79.7 [facility] [address] [place] [id number] [place] [address] 69193- 0368 18 Dec, 2016 Mood disorder F39 [facility] [place] [address] [place] [id number] [place] [address] 14783- 8371 Dec, [facility] [address] [place] [id number] [place] [address] 62219- 9623 Dec, Generalized anxiety disorder F41.1 and Major depressive disorder, recurrent episode with anxious distress F33.9 [facility] [place] [address] [place] [address]- 6471 11 Dec, 2016 [facility] [id number] [place] [address]- 3778 08 Dec, 2016 Streptococcal meningitis G00.2 [facility] [id number] [place] [address] 70054- 3071 07 Dec, 2016 Streptococcal meningitis G00.2 [facility] [id number] [place] [address] 33906- 2897 07 Dec, 2016 [facility] [id number] [place] [address] 63763- 5493 06 Dec, 2016 Streptococcal meningitis G00.2 [facility] [id number] [place] [address] 54103- 4840 06 Dec, 2016 [facility] [id number] [place] [address] 30812- 7606 Dec, 2016 Major depressive disorder, recurrent episode with anxious distress F33.9 [facility] [id number] [place] [address] 99112- 5569 Nov, Fever, unspecified fever cause R50.9 [facility] [place] [id number], [place] [address]- 9025 Nov, [facility] [id number] [place] [address] 25194- 3910 Nov, Hypothyroid E03.9 [facility] [place] [id number] [place] [address] 37081- 2078 Nov, Generalized anxiety disorder F41.1 and Major depressive disorder, recurrent episode with anxious distress F33.9 [facility] [place] [id number], [place] [address]- 5100 Nov, [facility] [id number] [place] [address] [id number] Oct, Dental examination Z01.20 [facility] [address], [place] [address]- 3515 Oct, Generalized anxiety disorder F41.1 and Major depressive disorder, recurrent episode with anxious distress F33.9 [place] [id number], [place] [address]- 1507 Oct, Chronic kidney disease, stage 4 (severe) N18.4 [facility] [place] [address] [place] [id number] [place] [address] 31846- 1937 Oct, [place] [address] [place] [id number] [place] [address] 64718- 0237 Oct, Fibromyalgia M79.7 [place] [address] [place] [id number] [place] [address] 66949- 7931 Oct, [place] [address] [place] [id number] [place] [address] 70956- 8412 Oct, Generalized anxiety disorder F41.1 ; Major depressive disorder, recurrent episode with anxious distress F33.9 and Bipolar disorder, current episode manic without psychotic features F31.10 [place] [id number] [place] [address] 80239- 7986 Sep, [place] [id number], [place] [address]- 1945 Sep, [place] [id number], [place] [address]- 4527 Sep, Vitamin D deficiency E55.9 [facility] [place] [address], [place] [address]- 2541 Sep, Vitamin D deficiency E55.9 [place] [id number], [place] [address]- 3304 Sep, [facility] [address], [place] [address]- 6773 Sep, Chronic kidney disease, stage 4 (severe) N18.4 ; Hypothyroid E03.9 ; Restless leg G25.81 ; Fibromyalgia M79.7 ; Essential ( primary) hypertension I10 ; Vitamin D deficiency E55.9 ; Dyspepsia R10.13 ; Anemia in chronic kidney disease D63.1 ; Chronic kidney disease, unspecified N18.9 ; Coronary artery disease involving three affiliated coronary artery of three affiliated heart , angina presence unspecified I25.10 ; Screening breast examination Z12.39 and Low back pain M54.5 [place] [address] [place] [id number] [place] [address] 41465- 1755 August, Generalized anxiety disorder F41.1 and Major depressive disorder, recurrent episode with anxious distress F33.9 [place] [address] 77515- 0139 August, Generalized anxiety disorder F41.1 and Major depressive disorder, recurrent episode with anxious distress F33.9 [place] [address] [place] [id number] [place] [address] 84772- 5149 August, Fibromyalgia M79.7 [place] [address] [place] [id number] [place] [address] 97086- 3262 Jul, Generalized anxiety disorder F41.1 and Major depressive disorder, recurrent episode with anxious distress F33.9 [place] [address] [place] [id number] [place] [address] 36209- 0298 Jul, Fibromyalgia M79.7 [place] [address] [place] [id number] [place] [address] 08819- 5977 Jul, Generalized anxiety disorder F41.1 [place] [address] [place] [id number] [place] [address] 71613- 1608 May, [place] [address] [place] [id number] [place] [address] 05230- 9797 May, Hypothyroid E03.9 [place] [address] [place] [id number] [place] [address] 96561- 1821 May, Chronic kidney disease, stage 4 (severe) N18.4 ; Hypothyroid E03.9 ; Restless leg G25.81 ; Fibromyalgia M79.7 ; Essential ( primary) hypertension I10 ; Vitamin D deficiency E55.9 ; Dyspepsia R10.13 ; Acute non-recurrent maxillary sinusitis J01.00 ; Anemia in chronic kidney disease D63.1 ; Chronic kidney disease, unspecified N18.9 and Coronary artery disease involving three affiliated coronary artery of three affiliated heart, angina presence unspecified I25.10 [place] [address] [place] [id number] [place] [address] 95267- 7877 May, Vitamin D deficiency, unspecified E55.9 [place] [address] [place] [id number] [place] [address] 29227- 7520 May, Generalized anxiety disorder F41.1 and Major depressive disorder, recurrent episode with anxious distress F33.9 [place] [address] [place] [id number] [place] [address] 46958- 2142 Apr, Pain in right knee M25.561 and Pain in left knee M25.562 [place] [address] [place] [id number] [place] [address] 55518- 8500 Apr, [place] [address] [place] [id number] [place] [address] 60253- 5570 Apr, [place] [address] [place] [id number] [place] [address] 96573- 0313 Apr, [place] [address] [place] [id number] [place] [address] 05441- 8053 Mar, Generalized anxiety disorder F41.1 and Major depressive disorder, recurrent episode with anxious distress F33.9 [place] [address] [place] [id number] [place] [address] 79288- 3781 Mar, Generalized anxiety disorder F41.1 and Major depressive disorder, recurrent episode with anxious distress F33.9 [place] [address] [place] [id number] [place] [address] 64376- 3104 Mar, [place] [address] [place] [id number] [place] [address] 08320- 0447 Mar, [facility] [place] [address] [place] [id number] [place] [address] 38954- 3706 Mar, [facility] [address] [place] [id number] [place] [address] 11587- 1495 Mar, Asthma J45.909 and Fibromyalgia M79.7 [place] [address] [place] [id number] [place] [address] 67944- 2390 Mar, Chronic kidney disease, stage 4 (severe) N18.4 ; Vitamin D deficiency E55.9 and Essential (primary) hypertension I10 [place] [address] [place] [id number] [place] [address] 40093- 6157 Feb, [place] [address] [place] [id number] [place] [address] 34853- 3107 Feb, Dysuria R30.0 ; Mixed stress and urge urinary incontinence N39.46 ; Fibromyalgia M79.7 and Chronic kidney disease, stage IV (severe) N18.4 [place] [address] [place] [id number] [place] [address] 53066- 3082 Feb, Chronic kidney disease, stage 4 (severe) N18.4 [place] [address] [place] [id number] [place] [address] 93536- 8043 Feb, Chronic kidney disease, stage 4 (severe) N18.4 [place] [address] [place] [id number] [place] [address] 65178- 0716 Feb, [facility] [place] [address] [place] [id number] [place] [address] 23165- 8663 Feb, Vitamin D deficiency, unspecified E55.9 [place] [address] [place] [id number] [place] [address] 59641- 8665 Jan, [place] [address] [place] [id number] [place] [address] 92785- 7308 Jan, [facility] [place] [address] [id number] [place] [address] 92210- 3323 Dec, [facility] [id number] [place] [address] 38695- 8929 Dec, Chronic kidney disease, stage 4 (severe) N18.4 [facility] [id number] [place] [address] 11663- 5464 Dec, Dysthymic disorder F34.1 and Generalized anxiety disorder F41.1 [facility] [place] [address] 71556- 4471 Dec, [facility] [address] [id number] [place] [address] 43013- 8266 Dec, [place] [address] [id number] [place] [address] 82986- 5486 Dec, Dysthymic disorder F34.1 and Generalized anxiety disorder F41.1 [place] [address] 15452- 0798 Dec, Dysuria R30.0 ; Chronic kidney disease, stage 4 (severe) N18.4 ; Hypertension I10 ; Dyspepsia R10.13 ; Yeast dermatitis B37.2 ; Palpitations R00.2 ; Hypothyroid E03.9 ; Functional 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 and Other seasonal allergic rhinitis J30.2 [facility] [id number] [place] [address] 53043 -6006 Dec, [facility] [id number] [place] [address] 53514 -6078 Nov, Dysuria R30.0 and Stress incontinence N39.3 [facility] [place] [id number] [place] [address] 82980- 7104 Nov, [place] [address] 28062- 4837 Nov, [facility] [place] [id number] [place] [address] 94393- 6769 Nov, Osteoarthritis of knees, bilateral M17.0 [place] [id number] [place] [address] 84693- 7388 Nov, Dysthymic disorder F34.1 and Generalized anxiety disorder F41.1 [place] [id number] [place] [address] 86730- 4027 Nov, [facility] [place] [id number] [place] [address] 44157- 2585 Nov, [place] [id number] [place] [address] 46662- 2915 Nov, Urgency of urination R39.15 [place] [id number] [place] [address] 20592- 3399 Nov, [place] [id number] [place] [address] 39750- 4943 Nov, Chronic kidney disease, stage 4 (severe) N18.4 [place] [id number] [place] [address] 79543- 2147 Oct, Hypertension I10 ; Coronary artery disease involving three affiliated coronary artery of three affiliated heart, angina presence unspecified I25.10 ; Palpitations R00.2 ; Hypothyroid E03.9 ; Right foot pain M79.671 ; Functional 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 and Other seasonal allergic rhinitis J30.2 [place] [id number] [place] [address] 27436- 5128 Oct, Dysthymic disorder F34.1 and Generalized anxiety disorder F41.1 [facility] [place] [id number] [place] [address] 21483- 0669 Sep, [facility] [place] [id number] [place] [address] 80864- 5598 Sep, [facility] [place] [id number] [place] [address] 25835- 5319 Sep, [place] [id number] [place] [address] 32462- 2610 Sep, [place] [id number] [place] [address] 26193- [phone] 29 Sep, 2015 [place] [address] [address]- [address]163 27 Sep, 2015 Dysthymic disorder F34.1 and Generalized anxiety disorder F41.1 [place] [address] [place] [id number] [place] [address] 60865- 4973 16 Sep, 2015 Asthma with acute exacerbation in adult J45.901 ; Dysuria R30.0 ; Chronic kidney disease, stage 4 (severe) N18.4 and History of anemia Z86.[address] 83[address]- 1930 2015 Generalized anxiety disorder F41.1 and Dysthymic disorder F34.[address] 18724- 5945 August, Screening breast examination Z12.39 and Acute recurrent maxillary sinusitis J01.01 [place] [id number] [place] [address] 49350- 7596 August, Osteoarthritis of knees, bilateral M17.0 [place] [id number] [place] [address] 06121- 6438 August, Chronic kidney disease, stage 4 (severe) N18.4 ; Acute non- recurrent maxillary sinusitis J01.00 ; Urinary problem R39.89 ; Bowel habit changes R19.4 ; Functional 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 and History of colon polyps Z86.010 [place] [address] [place] [id number] [place] [address] 61768- 2269 Jul, Dysthymic disorder F34.1 and Generalized anxiety disorder F41.1 [place] [id number] [place] [address] 48953- 7971 Jul, [place] [id number] [place] [address] 32148- 4781 Jul, Dysthymic disorder F34.1 ; Generalized anxiety disorder F41.1 and FCI use of drug Z79.899 [facility] [place] [address] [address] Jul, [facility] [place] [address] [place] [id number] [place] [address] 25974- 0899 Jun, [facility] [place] [address] [place] [id number] [place] [address] 75387- 0648 Jun, [facility] [place] [address] [place] [id number] [place] [address] 68306- 6843 May, [facility] [place] [address] [place] [id number] [place] [address] 68149- 0717 May, Dysthymic disorder F34.1 and Generalized anxiety disorder F41.1 [place] [address] [place] [id number] [place] [address] 89931- 2512 Apr, Kidney disease N28.9 [place] [address] [place] [id number] [place] [address] 70836- 3783 Apr, Generalized anxiety disorder F41.1 and Dysthymic disorder F34.1 [place] [address] [place] [id number] [place] [address] 19408- 1335 Apr, Chronic kidney disease, stage 4 (severe) N18.4 [place] [address] [place] [id number] [place] [address] 91549- 9671 Apr, Generalized anxiety disorder F41.1 ; Major depression, recurrent F33.9 and Sleep disturbance G47.9 [place] [id number] [place] [address] 22894- 9646 Mar, Generalized anxiety disorder F41.1 and Dysthymic disorder F34.1 [place] [address] [place] [id number] [place] [address] 96606- 2900 Mar, Generalized anxiety disorder F41.1 ; Dysthymic disorder F34.1 and Insomnia G47.00 [place] [address] [place] [id number] [place] [address] 78691- 2909 Mar, [place] [address] 99504- 7197 Mar, [facility] [place] [address] 80907- 4547 Mar, Osteoarthritis of knees, bilateral M17.[address] 99121- 8529 Mar, Hypertension I10 ; Hypothyroid E03.9 ; Dysthymic disorder F34.1 ; Chronic kidney disease, stage 4 (severe) N18.4 and Nausea & vomiting R11.2 [place] [address] 54757- 3452 Mar, Generalized anxiety disorder F41.1 ; Dysthymic disorder F34.1 and Insomnia G47.[address] 19339- 5407 Mar, Dehydration E86.0 ; Chronic kidney disease, stage 4 (severe ) N18.4 and Nausea & vomiting R11.2 [facility] [address] 48902 -7385 Mar, Gastroenteritis K52.9 [facility] [place] [address] 04087- 2294 Mar, [place] [address] 74417- 9855 Mar, [facility] [place] [address] 19764- 4523 Feb, Dysthymic disorder F34.1 and Generalized anxiety disorder F41.[address] 64738- 7648 Jan, UTI (urinary tract infection) N39.0 ; Asthma J45.909 ; Coronary artery disease involving three affiliated coronary artery of three affiliated heart, angina presence unspecified I25.10 ; Hypertension I10 ; Hypothyroid E03.9 ; Vitamin D deficiency E55.9 ; Insomnia G47.00 ; Palpitations R00.2 ; Depressed F32.9 ; Restless leg G25.81 and Anxiety F41.9 [place] [address] 11647- 3973 Jan, Dysthymic disorder F34.1 and Generalized anxiety disorder F41.[address] 40968- 3147 Jan, [place] [address] 86892- 0916 Dec, [place] [address] 52820- 2447 Dec, Alkalosis 276.3 ; Chronic kidney disease, 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.4 ; Hyperpotassemia 276.7 ; Secondary hyperparathyroidism, renal 588.81 ; Proteinuria 791.0 ; Unspecified vitamin D deficiency 268.9 ; Anemia in chronic kidney disease 285.21 ; Other and unspecified hyperlipidemia 272.4 ; Hypertension, essential, benign 401.1 and Chronic kidney disease (CKD), stage III (moderate) 585.3 [place] [address] 82969- 3687 Dec, [place] [address] 69756- 2491 Dec, Depressive disorder, not elsewhere classified 311 and Generalized anxiety disorder 300.02 [place] [address] [place] [id number] [place] [address] 77422- 0147 Dec, [place] [address] 50127- 8389 Dec, [address] 30864- 6647 Nov, Depressive disorder, not elsewhere classified 311 and Generalized anxiety disorder 300.[address] 95943- 5703 Nov, Arthritis of both knees 716.96 [place] [address] [place] [id number] [place] [address] 77575- 4772 Nov, PAF (paroxysmal atrial fibrillation) 427.31 ; CAD (coronary artery disease) 414.00 ; Chest pain 786.50 and Chronic kidney disease (CKD) stage G4/A1, severely decreased glomerular filtration rate (GFR) between 15-29 mL/min/1.73 square meter and albuminuria creatinine ratio less than 30 mg/g 585.4 [place] [address] 30366- 1645 Oct, Coronary atherosclerosis of unspecified type of vessel, three affiliated or graft 414.00 ; Chronic kidney disease, 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.4 ; Hypertension 401.9 and Edema 782.3 [place] [id number] [place] [address] 19775- 9747 Oct, Depressive disorder, not elsewhere classified 311 and Generalized anxiety disorder 300.02 [place] [id number] [place] [address] 00014- 2517 Oct, Depressive disorder, not elsewhere classified 311 and Generalized anxiety disorder 300.02 [place] [address] [place] [id number] [place] [address] 06061- 6085 Oct, [place] [address] [place] [id number] [place] [address] 53203- 3495 Oct, [place] [id number] [place] [address] 33580- 7516 Sep, [place] [id number] [place] [address] 25427- 8423 Sep, Chronic kidney disease, 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.4 [place] [address] 26431- 6707 Sep, [place] [id number] [place] [address] 25652- 2360 Sep, Coronary atherosclerosis of unspecified type of vessel, three affiliated or graft 414.00 ; Hypertension 401.9 ; Edema 782.3 and Hypothyroidism 244.9 [facility] [place] [address] [place] [id number] [place] [address] 92577- 7846 Sep, Coronary atherosclerosis of unspecified type of vessel, three affiliated or graft 414.00 ; Hypertension 401.9 ; Fibromyalgia 729.1 ; Edema 782.3 ; Hypothyroidism 244.9 and Anemia 285.9 [facility] [place] [address] 91382- 2419 Sep, Anxiety disorder, unspecified 300.00 and Depressive disorder , not elsewhere classified 311 [facility] [place] [address] [place] [id number] [place] [address] 09233- 9330 Sep, [facility] [place] [address] 66296- 0019 August, Generalized anxiety disorder 300.02 [facility] [place] [address] 75711- 3114 August, Closed fracture of lateral malleolus 824.2 [facility] [place] [address] [place] [id number] [place] [address] 75289- 1004 Jul, [facility] [place] [address] 75871- 4199 Jul, [facility] [place] [address] [place] [id number] [place] [address] 78345- 2507 Jun, [facility] [place] [address] [place] [id number] [place] [address] 32882- 0439 Jun, [facility] [place] [address] [place] [id number] [place] [address] 49220- 6491 Jun, [facility] [place] [address] [place] [id number] [place] [address] 53265- 4201 Jun, [facility] [place] [address] [place] [id number] [place] [address] 54032- 8911 Jun, [facility] [place] [address] [place] [id number] [place] [address] 02552- 0497 Jun, [facility] [place] [facility] [address] [id number] [place] [address]- 7528 May, 2014 [facility] [place] [facility] [address] [id number] [place] [address]- 6226 19 May, 2014 [facility] [place] [facility] [address] [id number] [place] [address]- 1826 18 May, 2014 [facility] [place] [facility] [address] [id number] [place] [address]- 1505 18 May, 2014 [facility] [place] [facility] [address] [id number] [place] [address]- 0324 16 May, 2014 [facility] [place] [facility] [address] [id number] [place] [address]- 5277 16 May, 2014 [facility] [place] [facility] [address] [id number] [place] [address]- 7439 13 May, 2014 [facility] [place] [facility] [address] [id number] [place] [address]- 7376 13 May, 2014 [facility] [place] [facility] [address] [id number] [place] [address]- 9288 10 May, 2014 [facility] [place] [facility] [address] [id number] [place] [address]- 8547 10 May, 2014 [facility] [place] [facility] [address] [id number] [place] [address]- 7324 Apr, [facility] [place] [facility] [address] [id number] [place] [address]- 9389 Apr, [facility] [place] [facility] [address] [id number] [place] [address]- 1697 Mar, [facility] [place] [facility] [address] [id number] [place] [address]- 7418 Mar, [facility] [place] [facility] [address] [id number] [place] [address]- 0440 Mar, [facility] [place] [facility] [address] [id number] [place] [address]- 9066 15 Mar, 2014 [facility] [place] [facility] [address] [id number] [place] [address]- 0646 15 Mar, 2014 [facility] [place] [facility] [address] [id number] [place] [address]- 4722 15 Mar, 2014 [facility] [place] [facility] [address] [id number] [place] [address]- 7628 Mar, [facility] [place] [facility] [address] [id number] [place] [address]- 2562 Feb, [facility] [place] [facility] [address] [id number] [place] [address]- 8943 Feb, [facility] [place] [facility] [address] [id number] [place] [address]- 7247 Feb, [facility] [place] [facility] [address] [id number] [place] [address]- 6429 Jan, [facility] [place] [facility] [address] [id number] [place] [address]- 0805 Jan, [facility] [place] [facility] [address] [id number] [place] [address]- 7180 Jan, [facility] [place] [facility] [address] [id number] [place] [address]- 6782 Jan, [facility] [place] [facility] [address] [id number] [place] [address]- 1591 Jan, [facility] [place] [facility] [address] [id number] [place] [address]- 3542 Jan, [facility] [place] [facility] [address] [id number] [place] [address]- 2517 Jan, [facility] [place] [facility] [address] [id number] [place] [address]- 1413 Jan, [facility] [place] [facility] [address] [id number] [place] [address]- 1377 Jan, [facility] [place] [facility] [address] [id number] [place] [address]- 1884 Jan, [facility] [place] [facility] [address] [id number] [place] [address]- 9878 Nov, [facility] [place] [facility] [address] [id number] [place] [address]- 4742 Nov, [facility] [place] [facility] [address] [id number] [place] [address]- 0497 Nov, [facility] [place] [facility] [address] [id number] [place] [address]- 3973 Oct, [facility] [place] [facility] [address] [id number] [place] [address]- 6081 Oct, [facility] [place] [facility] [address] [id number] [place] [address]- 9485 Oct, [facility] [place] [facility] [address] [id number] [place] [address]- 9812 Oct, [facility] [place] [facility] [address] [id number] [place] [address]- 6529 Oct, [facility] [place] [facility] [address] [id number] [place] [address]- 3176 Oct, [facility] [place] [facility] [address] [id number] [place] [address]- 9161 Oct, [facility] [place] [facility] [address] [id number] [place] [address]- 7620 Oct, [facility] [place] [facility] [address] [id number] [place] [address]- 1376 Oct, [facility] [place] [facility] [address] [id number] [place] [address]- 2603 Sep, [facility] [place] [facility] [address] [id number] [place] 4872 Sep, [facility] [place] [facility] [address] [id number], [place] [address]- 1196 Sep, [facility] [place] [facility] [address] [id number] [place] [address]- 3285 Sep, [facility] [place] [facility] [address] [id number] [place] [address]- 7261 Sep, [facility] [place] [facility] [address] [id number] [place] [address]- 9724 Sep, [facility] [place] [facility] [address] [id number] [place] [address]- 7731 Sep, [facility] [place] [facility] [address] [id number] [place] [address]- 4462 Sep, [facility] [place] [facility] [address] [id number] [place] [address]- 2675 Sep, [facility] [place] [facility] [address] [id number] [place] [address]- 1588 August, [facility] [place] [facility] [address] [id number] [place] [address]- 7876 August, [facility] [place] [facility] [address] [id number] [place] [address]- 3040 August, [facility] [place] [facility] [address] [facility] [id number] [place] [address]- 9744 August, [facility] [place] [facility] [address] [id number] [place] [address]- 4619 August, [facility] [place] [facility] [address] [id number], [place] [address]- 5197 August, [facility] [place] [facility] [address] [id number] [place] [address]- 2658 Jul, [facility] [place] [facility] [address] [id number] [place] [address]- 3024 Jul, [facility] [place] [facility] [address] [id number] [place] [address]- 9266 Jul, [facility] [place] [facility] [address] [id number] [place] [address]- 2109 08 Jul, 2013 [facility] [place] [facility] [address] [id number] [place] [address]- 0100 Jul, [facility] [place] [facility] [address] [id number] [place] [address]- 8893 Jul, [facility] [place] [facility] [address] [id number] [place] [address]- 1963 Jun, [facility] [place] [facility] [address] [id number] [place] [address]- 1158 Jun, [facility] [place] [facility] [address] [id number] [place] [address]- 9039 May, [facility] [place] [facility] [address] [id number] [place] [address]- 3111 May, [facility] [place] [facility] [address] [id number] [place] [address]- 2750 May, [facility] [place] [facility] [address] [id number] [place] [address]- 5662 May, [facility] [place] [facility] [address] [id number] [place] [address]- 8538 Apr, [facility] [place] [facility] [address] [id number] [place] [address]- 6456 Apr, [facility] [place] [facility] [address] [id number] [place] [address]- 2891 Mar, [facility] [place] [facility] [address] [id number] [place] [address]- 2305 18 Mar, 2013 [facility] [place] [facility] [address] [id number] [place] [address]- 2376 Mar, [facility] [place] [facility] [address] [id number] [place] [address]- 3293 17 Mar, 2013 [facility] [place] [facility] [address] [id number] [place] [address]- 9473 Mar, [facility] [place] [facility] [address] [id number] [place] [address]- 4822 Mar, [facility] [place] [facility] [address] [id number] [place] [address]- 7814 Feb, [facility] [place] [facility] [address] [id number] [place] [address]- 2128 Feb, [facility] [place] [facility] [address] [id number] [place] [address]- 5608 Feb, [facility] [place] [facility] [address] [id number] [place] [address]- 2356 Feb, [facility] [place] [facility] [address] [id number] [place] [address]- 7736 Feb, [facility] [place] [facility] [address] [id number] [place] [address]- 1795 Feb, [facility] [place] [facility] [address] [id number] [place] [address]- 6935 Jan, [facility] [place] [facility] [address] [id number] [place] [address]- 4930 Jan, [facility] [place] [facility] [address] [id number] [place] [address]- 8311 Jan, [facility] [place] [facility] [address] [id number], [place] [address]- 2189 Jan, [facility] [place] [facility] [address] [id number], [place] [address]- 4718 08 Jan, 2013 [facility] [place] [facility] [address] [id number] [place] 8151 04 Jan, 2013 [facility] [place] [facility] [address] [id number][place] 4320 12 Dec, 2012 [facility] [place] [facility] [address] [id number] [place] [address]- 6088 09 Dec, 2012 [facility] [place] [facility] [address] [id number] [place] [address]- 2549 Nov, [facility] [address] [id number] [place] [address]- 3120 Nov, [facility] [address] [id number] [place] [address]- 5229 Oct, [facility] [address] [id number] [place] [address]- 5956 Oct, [facility] [address] [id number] [place] [address]- 0286 Oct, [facility] [address] [id number] [place] [address]- 3288 Oct, [facility] [address] [id number] [place] [address]- 7740 Oct, [facility] [address] [id number] [place] [address]- 8395 Oct, [facility] [address] [id number] [place] [address]- 2449 Sep, [facility] [address] [id number] [place] [address]- 6144 Sep, [facility] [address] [id number] [place] [address]- 5957 Sep, [facility] [address] [id number] [place] [address]- 3709 Sep, [facility] [address] [id number] [place] [address]- 8694 August, [facility] [place] [facility] [address] [id number] [place] [address]- 9408 August, [facility] [place] [facility] [address] [id number] [place] [address]- 5646 August, [facility] [address] [id number] [place] [address]- 3197 August, [facility] [address] [id number] [place] [address]- 3301 August, [facility] [address] [id number] [place] [address] Jul, [facility] [address] [id number] [place] [address] Jul, [facility] [address] [id number] [place] [address] Jul, [facility] [address] [id number] [place] [address] Jul, [facility] [address] [id number] [place] [address] Jul, [facility] [address] [id number] [place] [address] Jul, [facility] [address] [id number] [place] [address] Jul, [facility] [address] [id number] [place] [address] Jul, [facility] [address] [id number], [place] [address] Jul, [facility] [address] [id number], [place] [address] Jul, [facility] [address] [id number][place] [id number] Jun, [facility] [address] [id number] [place] [address] Jun, [facility] [address] [id number] [place] [address] Jun, [facility] [address] [id number], [place] [address] Jun, [facility] [address] [id number], [place] [address] Jun, [facility] [address] [id number] [place] [address] May, [facility] [address] [id number] [place] [address] May, [facility] [address] [id number] [place] [address] May, [facility] [address] [id number] [place] [address] Apr, [facility] [address] [id number] [place] [address] Apr, [facility] [address] [id number] [place] [address] Apr, [facility] [address] [id number] [place] [address] Apr, [facility] [address] [id number] [place] [address] Apr, [facility] [address] [id number] [place] [address] Apr, [facility] [address] [id number] [place] [address] Mar, [facility] [address] [id number] [place] [address] Mar, [facility] [address] [id number] [place] [address] Mar, [facility] [address] [id number] [place] [address] Mar, [facility] [place] [facility] [address] [id number] [place] [address] Feb, [facility] [address] [id number] [place] [address] Feb, [facility] [place] [facility] [address] [id number] [place] [address] Feb, [facility] [place] [facility] [address] [id number] [place] [address] Feb, [facility] [place] [facility] [address] [id number] [place] [address] Feb, [facility] [place] [facility] [address] [id number] [place] [address] Feb, [facility] [place] [facility] [address] [id number] [place] [address] Feb, [facility] [place] [facility] [address] [id number] [place] [address] Feb, [facility] [place] [facility] [address] [id number] [place] [address] Feb, [facility] [place] [facility] [address] [id number] [place] [address] Feb, [facility] [place] [facility] [address] [id number] [place] [address] Feb, [facility] [place] [facility] [address] [id number] [place] [address] Feb, [facility] [place] [facility] [address] [facility] [id number] [place] [address] Feb, [facility] [place] [facility] [address] [id number] [place] [address] Feb, [facility] [place] [facility] [address] [id number] [place] [address] Feb, [facility] [place] [facility] [address] [id number] [place] [address] Feb, [facility] [place] [facility] [address] [id number] [place] [address] Jan, [facility] [place] [facility] [address] [id number] [place] [address] Jan, [facility] [place] [facility] [address] [id number] [place] [address] 31 Jan, 2012 [facility] [place] [facility] [address] [id number] [place] [address] 31 Jan, 2012 [facility] [place] [facility] [address] [id number] [place] [address]- [address] 30 Jan, 2012 [facility] [place] [facility] [address] [id number] [place] [address] Jan, [facility] [place] [facility] [address] [id number] [place] [address] Jan, [facility] [place] [facility] [address] [id number] [place] [address] 16 Jan, 2012 [facility] [place] [facility] [address] [id number] [place] [address] 16 Jan, 2012 [facility] [place] [facility] [address] [id number], [place] [address] 15 Jan, 2012 [facility] [place] [facility] [address] [id number] [place] [address] 4881 15 Jan, 2012 [facility] [place] [facility] [address] [id number], [place] [address] Jan, [facility] [place] [facility] [address] [id number], [place] [address] 26 Dec, 2011 [facility] [place] [facility] [address] [id number], [place] [address] 26 Sep, 2011 [facility] [place] [facility] [address] [id number] [place] [address] 24 Sep2011 [facility] [place] [facility] [address] [id number], [place] [address] 23 Sep, 2011 [facility] [place] [facility] [address] [id number] [place] [address] 9296 22 Sep, 2011 [facility] [place] [facility] [address] [id number] [place] [address]- 0586 21 Sep, 2011 [facility] [place] [facility] [address] [id number] [place] [address] 9006 20 Sep, 2011 [facility] [place] [facility] [address] [id number] [place] [address]- 7756 20 Dec, 2011 [facility] [place] [facility] [address] [id number] [place] [address] 9256 07 Sep, 2011 [facility] [place] [facility] [address] [id number] [place] [address] 2546 06 Sep, 2011 [facility] [place] [facility] [address] [id number] [place] [address]- 5886 06 Sep, 2011 [facility] [place] [facility] [address] [id number] [place] [address]- 7356 05 Dec, 2011 [facility] [place] [facility] [address] [id number] [place] [address]- 5439 23 Nov, 2011 [facility] [place] [facility] [address] [id number] [place] [address]- 3312 17 Nov, 2011 [facility] [place] [facility] [address] [id number] [place] [address]- 1248 13 Nov, 2011 [facility] [place] [facility] [address] [id number] [place] [address]- 9185 10 Nov, 2011 [facility] [place] [facility] [address] [id number] [place] [address]- 8639 08 Nov, 2011 [facility] [place] [facility] [address] [id number] [place] [address]- 2540 Nov, [facility] [place] [facility] [address] [id number] [place] [address]- 5690 Nov, [facility] [place] [facility] [address] [id number] [place] [address]- 4416 Nov, [facility] [place] [facility] [address] [id number] [place] [address]- 8892 Oct, [facility] [place] [facility] [address] [id number] [place] [address] 3701 Oct, [facility] [place] [facility] [address] [id number] [place] [address] 8558 Oct, [facility] [place] [facility] [address] [id number] [place] [address] 4754 Oct, [facility] [place] [facility] [address] [id number] [place] [address]- 7083 Oct, [facility] [place] [facility] [address] [id number] [place] [address]- 6482 Oct, [facility] [place] [facility] [address] [id number] [place] [address] 9645 Oct, [facility] [place] [facility] [address] [id number] [place] [address] 8677 Sep, [facility] [place] [facility] [address] [id number] [place] [address]- 4254 Sep, [facility] [place] [facility] [address] [id number] [place] [address] 1584 August, [facility] [place] [facility] [address] [id number] [place] [address] August, [facility] [place] [facility] [address] [id number] [place] [address] 6032 August, [facility] [place] [facility] [address] [id number] [place] [address] 2959 August, [facility] [place] [facility] [address] [id number] [place] [address] 8[address] Jul, [facility] [place] [facility] [address] [id number] [place] [address]- 1066 Jul, [facility] [place] [facility] [address] [id number] [place] [address] 7554 Jul, [facility] [place] [facility] [address] [id number] [place] [address]- 3681 05 Jul, 2011 [facility] [place] [facility] [address] [id number] [place] [address]- 1268 Jul, [facility] [place] [facility] [address] [id number] [place] [address]- 1858 Jul, [facility] [place] [facility] [address] [id number] [place] [address]- 8947 Jul, [facility] [place] [facility] [address] [id number] [place] [address]- 5390 Jul, [facility] [place] [facility] [address] [id number] [place] [address]- 5938 Jul, [facility] [place] [facility] [address] [id number] [place] [address]- 1244 Jun, [facility] [place] [facility] [address] [id number] [place] [address]- 0013 Jun, [facility] [place] [facility] [address] [id number] [place] [address]- 4193 15 Jun, 2011 [facility] [place] [facility] [address] [id number] [place] [address]- 4842 14 Jun, 2011 [facility] [place] [facility] [address] [id number] [place] [address]- 5700 Jun, [facility] [place] [facility] [address] [id number] [place] [address]- 8058 Jun, [facility] [place] [facility] [address] [id number] [place] [address]- 8960 Jun, [facility] [place] [facility] [address] [id number] [place] [address]- 7975 May, [facility] [place] [facility] [address] [id number] [place] [address]- 4570 24 May, 2011 [facility] [place] [facility] [address] [id number] [place] [address]- 7906 16 May, 2011 [facility] [place] [facility] [address] [id number] [place] [address]- 2546 16 May, 2011 [facility] [address] [id number] [place] [address]- 4626 May, [facility] [place] [facility] [address] [id number] [place] [address]- 2546 27 Apr, 2011 [facility] [address] [id number] [place] [address]- 9936 Apr, [facility] [place] [facility] [address] [id number] [place] [address]- 5846 Apr, [facility] [address] [id number] [place] [address]- 2966 Apr, [facility] [place] [facility] [address] [id number] [place] [address]- 1676 Apr, [facility] [address] [id number] [place] [address]- 8663 Mar, [facility] [address] [id number] [place] [address]- 2306 Mar, [facility] [address] [id number] [place] [address]- 1573 Mar, [facility] [address] [id number] [place] [address]- 2051 Mar, [facility] [place] [facility] [address] [id number] [place] [address]- 8276 Mar, [facility] [place] [facility] [address] [id number] [place] [address]- 2546 Mar, [facility] [place] [facility] [address] [id number] [place] [address]- 2046 Mar, [facility] [place] [facility] [address] [id number] [place] [address]- 2546 Feb, [facility] [place] [facility] [address] [id number] [place] [address]- 2351 Feb, [facility] [place] [facility] [address] [id number] [place] [address]- 4302 Feb, [facility] [place] [facility] [address] [id number] [place] [address]- 7157 Feb, [facility] [place] [facility] [address] [id number] [place] [address]- 9405 Jan, [facility] [place] [facility] [address] [id number] [place] [address]- 2674 Jan, [facility] [place] [facility] [address] [id number] [place] [address]- 9093 Jan, [facility] [place] [facility] [address] [id number] [place] [address]- 3979 Jan, [facility] [place] [facility] [address] [id number] [place] [address]- 9678 Nov, [facility] [place] [facility] [address] [id number] [place] [address]- 0092 Mar, [facility] [place] [facility] [address] [id number] [place] [address]- 0237 Mar, [facility] [place] [facility] [address] [id number] [place] [address]- 6555 Mar, [facility] [place] [facility] [address] [id number], [place] [address]- 9756 Mar, [facility] [place] [facility] [address] [id number], [place] [address]- 6182 Mar, [facility] [place] [facility] [address] [id number] [place] [address]- 0570 Mar, [facility] [place] [facility] [address] [id number] [place] [address]- 2686 Feb, [facility] [place] [facility] [address] [id number] [place] [address]- 2359 Feb, [facility] [place] [facility] [address] [facility] [id number] [place] [address]- 3956 Jan, [facility] [place] [address] [facility] [id number], [place] [address]- 1052 Jan, [facility] [place] [address] [facility] [id number], [place] [address]- [address]331 Jan, IMMUNIZATIONS No Known Immunizations SOCIAL HISTORY Never Assessed REASON FOR VISIT bh f./u CbrumbackRN PLAN OF CARE Activity Details Follow Up 6 Weeks Reason: VITAL SIGNS Height 63 in 2017-01-01 Weight 249.8 lbs 2017-01-01 Heart Rate 84 bpm 2017-01-01 Respiratory Rate 18 2017-01-01 BMI 44.25 kg/m2 2017-01-01 Blood pressure systolic 132 mmHg 2017-01-01 Blood pressure diastolic 84 mmHg 2017-01-01 MEDICATIONS Medication Instructions Dosage Frequency Start Date End Date Duration Status Vitamin D (Ergocalciferol) 12153 UNIT Orally once weekly 1 capsule Jan, 8 weeks Active Cetirizine HCl 10 MG TAKE ONE TABLET BY MOUTH ONCE DAILY August, 30 Active Protonix 40 mg Orally Once a day 1 tablet 24h 30 Active Clonazepam 1 MG Orally Twice a day as needed 1 tablet 30 days Active Fluticasone Propionate 50 MCG/ACT Nasally Once a day USE ONE SPRAY IN EACH NOSTRIL TWICE DAILY 24h Active Vitamin C 1000 MG Orally Once a day 1 tablet 24h Active Fiber Complete - Active Symbicort 80-4.5 MCG/ACT Inhalation Twice a day 2 puffs 12h Mar, Active Ferrous Sulfate 325 (65 Fe) MG Orally Once a day 1 tablet 24h Active Trazodone HCl 100 MG Orally Once a day 0.5-1 tablet at night as needed for sleep 24h Dec, 30 day(s) Active Nystatin 782677 UNIT/GM Externally Twice a day 1 application to thighs as needed 12h Sep, Active Lyrica 150 MG Orally 3 times a day 1 capsule 8h Active Norvasc 10 Orally Once a day 1 tablet 24h Active Losartan Potassium 100 mg Orally Once a day 1 tablet 24h 30 Active Furosemide 40 mg Orally Once a day 1 tablet 24h 30 Active Cymbalta 60 MG Orally Once a day 1 capsule 24h 30 days Active Requip 4 MG Orally do not fill in er Once a day 2 tablets 1 to 3 hours before bedtime 24h 30 Active Potassium Chloride ER 10 MEQ TAKE ONE CAPSULE BY MOUTH ONCE DAILY WITH FOOD 30 Active Toprol XL 50 MG TAKE ONE TABLET BY MOUTH THREE TIMES DAILY 30 Active Gemfibrozil 600 MG TAKE ONE TABLET BY MOUTH TWICE DAILY 30 Active Trileptal 300 MG Orally one in the morning, and two at night 1 tablet Oct, 30 days Active Nystatin 664769 UNIT/ML Mouth/Throat Four times a day 4 ml 6h Active Voltaren 1 % Transdermal to knee BID. Max dose 4 grams 2 grams Jan, 8 Active Synthroid 137 MCG Orally Once a day 1 tablet 24h 30 Active ProAir HFA 108 (90 Base) MCG/ACT Inhalation every 4 hrs 2 puffs as needed 4h Sep, Active RESULTS No Results PROCEDURES No Known [...] Surgical History Bladder surgery [facility] 03/2016 Hospitalization History Surgeries Only Hospitalization History bacterial meningitis December 2016 Hospitalization History [facility] psych for SI 1988 Hospitalization History [facility]-Altered mental status 05/2017
--- OUTSIDE RECORDS SUMMARY | 2018-05-29 08:08 | XMS REPORT ---
Author Author ISABEL MAE [facility] Address [address] [place] [address] Care Team Providers Care Machine Hand Name Role Phone ISABEL MAE Unavailable PROBLEMS Type Condition ICD9-CM Code [id number] Code Onset Dates Condition Status SNOMED Code Problem Long-term use of high-risk medication Z79.899 Active 888399315 Problem Abnormal chest CT R93.8 Active 228358752 Problem Low back pain M54.5 Active 832823912 Problem Generalized anxiety disorder F41.1 Active 29335717 Problem Dysthymic disorder F34.1 Active 94157477 Problem Coronary artery disease involving [place] coronary artery of [place] heart, angina presence unspecified I25.10 Active 9291536245346 Problem Depressed F32.9 Active 03573776 Problem Fibromyalgia M79.7 Active 298689163 Problem Hypothyroid E03.9 Active 02045739 Problem Essential (primary) hypertension I10 Active 32406343 Problem Insomnia G47.00 Active 137456585 Problem Vitamin D deficiency E55.9 Active 16194566 Problem Anemia in chronic kidney disease D63.1 Active 191428361455517 Problem Chronic kidney disease, unspecified N18.9 Active 051191888 Problem Body mass index (BMI) of 40.0-44.9 in adult Z68.41 Active 022054440 Problem Stage 3 chronic kidney disease N18.3 Active 522595380 Problem Restless leg G25.81 Active 94735867 Problem Palpitations R00.2 Active 89188546 Problem Asthma J45.909 Active 006372919 Problem Primary osteoarthritis of left knee M17.12 Active 421968600 Problem Bipolar disorder, current episode manic without psychotic features F31.10 Active 278335138 Problem Mood disorder F39 Active 91403479 Problem Degenerative tear of medial meniscus of left knee M23.204 Active 457966276 Problem History of colon polyps Z86.010 Active 814740101 Problem Asthma with acute exacerbation in adult J45.901 Active 772043007 Problem Chronic kidney disease, stage 4 (severe) N18.4 Active 530445676 Problem Functional 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 Active 02272110 Problem Hypokalemia E87.6 Active 34426477 Problem Mixed stress and urge urinary incontinence N39.46 Active 096925296 Problem History of anemia Z86.2 Active 784773923 Problem Other seasonal allergic rhinitis J30.2 Active 260465690 ALLERGIES No Known Allergies ENCOUNTERS Encounter Location Date Diagnosis [place] [id number] [place] [address] 39535- 6331 Sep, [place] [address] 50327- 9048 August, [place] [address] 87175- 3170 August, Generalized anxiety disorder F41.1 and Major depressive disorder, recurrent episode with anxious distress F33.9 [place] [address] 60601- 7801 August, Abnormal chest CT R93.8 [place] [address] 10832- 7746 Jul, [place] [address] 05527- 3490 Jul, Chronic kidney disease, stage 4 (severe) N18.4 [place] [address] 38717- 1282 Jul, [place] [address] 71484- 3586 Jul, Restless leg G25.81 ; Mixed stress and urge urinary incontinence N39.46 and Fibromyalgia M79.7 [place] [id number] [place] [address] 72502- 8927 Jul, Chronic kidney disease, stage 4 (severe) N18.4 [place] [address] 03326- 4142 Jun, Orthostatic hypotension I95.1 ; Chronic kidney disease, stage 4 (severe) N18.4 ; Chest wall discomfort R07.89 and Body mass index (BMI) of 40.0-44.9 in adult Z68.41 [facility] [id number] [place] [address] 70508- 0358 Jun, [facility] [id number] [place] [address] 81923- 9173 Jun, Orthostatic hypotension I95.1 [facility] [id number] [place] [address] 61101- 0916 Jun, [facility] [id number] [place] [address] 40690 -5459 Jun, Orthostatic hypotension I95.1 ; Dysuria R30.0 and Acute cystitis without hematuria N30.00 [facility] [id number] [place] [address] 26195- 8086 Jun, [facility] [id number] [place] [address] 98350- 7102 Jun, Chronic kidney disease, stage 4 (severe) N18.4 [place] [id number] [place] [address] 20844- 5461 Jun, Fibromyalgia M79.7 [place] [id number] [place] [address] 55255- 8531 Jun, [facility] [id number] [place] [address] 36733- 2542 Jun, [facility] [id number] [place] [address] 46077- 2[address] May, [address] R93.8 and Stage 3 chronic kidney disease N18.3 [facility] [id number] [place] [address] 60011- 7677 May, Chronic kidney disease, stage 4 (severe) N18.4 [facility] [id number] [address]- 0177 May, Chronic kidney disease, stage 4 (severe) N18.4 [facility] [id number] [place] [address] 16514- [address] May, [address] R93.8 [facility] [id number] [place] [address] 83622- 3488 May, [facility] [id number] [place] [address] 50108- 0401 May, [place] [id number] [place] [address] 71176- 7631 May, Generalized anxiety disorder F41.1 and Major depressive disorder, recurrent episode with anxious distress F33.9 [place] [address] [place] [address] 91714- 5822 May, Mood disorder F39 [place] [address] [place] [address] 26007- 4915 Apr, [place] [address] [place] [address] 28818- 7444 Apr, Infected skin lesion L08.9 and Muscle strain of right shoulder region, initial encounter S46.911A [place] [address] [place] [address] 12136- 4247 Apr, Generalized anxiety disorder F41.1 and Major depressive disorder, recurrent episode with anxious distress F33.9 [place] [address] [address]- 7110 Apr, [facility] [address] [place] [address] 37051- 7874 Apr, Recent urinary tract infection Z87.440 and Hypothyroid E03.9 [facility] [id number] [address]- 0858 Apr, Generalized anxiety disorder F41.1 and Major depressive disorder, recurrent episode with anxious distress F33.9 [place] [address] [address]- 2543 Apr, Recent urinary tract infection Z87.440 [place] [address] [place] [address] 23613- 9447 28 Mar, 2017 [facility] [address] [place] [address] 44443 -2074 Mar, Dysuria R30.0 ; Acute cystitis without hematuria N30.00 and BMI 40.0-44.9, adult Z68.41 [place] [address] [place] [address] 50030- 6404 14 Mar, 2017 [place] [id number] [place] [address] 94522- 8242 Mar, [place] [id number] [place] [address] 99678- 5814 Mar, Generalized anxiety disorder F41.1 and Major depressive disorder, recurrent episode with anxious distress F33.9 [place] [address] [place] [address] 69797- 6104 29 Feb, 2017 Conjunctivitis, bacterial H10.9 [place] [address] [place] [address] 20189- 4023 27 Feb, 2017 [facility] [place] [address] [place] [address] 50462 -0962 15 Feb, 2017 Conjunctivitis, bacterial H10.9 [facility] [address] [place] [address] 99660- 9073 15 Feb, 2017 [facility] [address] [place] [address] 06125 -7857 10 Feb, 2017 Dysuria R30.0 ; Acute cystitis N30.00 and BMI 40.0-44.9, adult Z68.41 [place] [address] [place] [address] 16805- 4295 08 Feb, 2017 [place] [id number] [place] [address] 37463- 1993 Feb, Generalized anxiety disorder F41.1 and Major depressive disorder, recurrent episode with anxious distress F33.9 [place] [id number] [place] [address] 55414- 1813 Feb, Mood disorder F39 and BMI 40.0-44.9, adult Z68.[address] 59101- 1815 Jan, [place] [id number] [place] [address] 62205- 6740 Jan, [place] [id number] [place] [address] 51350- 8746 Jan, Hypothyroid E03.9 [place] [id number] [place] [address] 83590- 3035 Jan, [place] [id number] [place] [address] 65655- 0110 Jan, Chronic kidney disease, unspecified N18.9 ; Hypokalemia E87.6 ; Essential (primary) hypertension I10 ; Fibromyalgia M79.7 ; Coronary artery disease involving [place] coronary artery of [place] heart, angina presence unspecified I25.10 ; Hypothyroid E03.9 and Encounter for immunization Z23 [place] [id number] [place] [address] 66385- 5313 Jan, Hypothyroid E03.9 [place] [id number] [place] [address] 21166- 7274 Jan, [place] [id number] [place] [address] 70710- 3914 Dec, Vitamin D deficiency E55.9 [place] [id number] [place] [address] 22265- 0732 Dec, Primary osteoarthritis of left knee M17.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 [place] [address] [address]- 3645 19 Dec, 2016 Fibromyalgia M79.7 [facility] [id number] [place] [address] 34027- 3569 18 Sep, 2016 Mood disorder F39 [facility] [id number] [place] [address] 59962- 3798 13 Dec, 2016 [facility] [id number] [place] [address] 14655- 6552 13 Dec, 2016 Generalized anxiety disorder F41.1 and Major depressive disorder, recurrent episode with anxious distress F33.9 [facility] [id number] [place] [address] 44408- 4628 11 Dec, 2016 [facility] [id number] [place] [address] 27565- 3018 08 Dec, 2016 Streptococcal meningitis G00.2 [facility] [id number] [place] [address] 34704- 9928 07 Dec, 2016 Streptococcal meningitis G00.2 [facility] [id number] [place] [address] 16659- 5177 07 Dec, 2016 [facility] [id number] [place] [address] 58847- 7091 06 Dec, 2016 Streptococcal meningitis G00.2 [facility] [address] [place] [address] 23437- 3058 06 Dec, 2016 [facility] [id number] [place] [address] 00827- 2544 06 Dec, 2016 Major depressive disorder, recurrent episode with anxious distress F33.9 [facility] [id number] [place] [address] 80647- 2700 Nov, Fever, unspecified fever cause R50.9 [facility] [address], [place] [address]- 0732 Nov, [facility] [id number] [place] [address] 25500- 1720 Nov, Hypothyroid E03.9 [facility] [id number] [place] [address] 21382- 5165 Nov, Generalized anxiety disorder F41.1 and Major depressive disorder, recurrent episode with anxious distress F33.9 [facility] [id number] [place] [address] 71953- 8145 Nov, [facility] [id number] [place] [address] [id number] Oct, Dental examination Z01.20 [facility] [id number] [place] [address] 46573- 8760 Oct, Generalized anxiety disorder F41.1 and Major depressive disorder, recurrent episode with anxious distress F33.9 [facility] [id number] [place] [address] 46815- 9041 Oct, Chronic kidney disease, stage 4 (severe) N18.4 [facility] [id number] [place] [address] 29103- 7524 Oct, [facility] [id number] [place] [address] 54531- 7931 Oct, Fibromyalgia M79.7 [facility] [id number] [place] [address] 05213- 7689 Oct, [facility] [id number] [place] [address] 24048- 5309 Oct, Generalized anxiety disorder F41.1 ; Major depressive disorder, recurrent episode with anxious distress F33.9 and Bipolar disorder, current episode manic without psychotic features F31.10 [facility] [id number] [place] [address] 38363- 7162 Sep, [facility] [id number] [place] [address] 06333- 4945 Sep, [facility] [id number] [place] [address] 60012- 6838 15 Sep, 2016 Vitamin D deficiency E55.9 [place] [address], [place] [address]- 0029 14 Sep, 2016 Vitamin D deficiency E55.9 [place] [address] [address]- 5103 Sep, [place] [id number] [place] [address] 99535- 0803 Sep, Chronic kidney disease, stage 4 (severe) N18.4 ; Hypothyroid E03.9 ; Restless leg G25.81 ; Fibromyalgia M79.7 ; Essential ( primary) hypertension I10 ; Vitamin D deficiency E55.9 ; Dyspepsia R10.13 ; Anemia in chronic kidney disease D63.1 ; Chronic kidney disease, unspecified N18.9 ; Coronary artery disease involving [place] coronary artery of [place] heart , angina presence unspecified I25.10 ; Screening breast examination Z12.39 and Low back pain M54.5 [place] [id number] [place] [address] 54983- 3846 August, Generalized anxiety disorder F41.1 and Major depressive disorder, recurrent episode with anxious distress F33.9 [place] [id number] [place] [address] 25115- 6718 August, Generalized anxiety disorder F41.1 and Major depressive disorder, recurrent episode with anxious distress F33.9 [place] [address], [place] [address]- 9942 August, Fibromyalgia M79.7 [place] [address] [place] [address] 95333- 8855 Jul, Generalized anxiety disorder F41.1 and Major depressive disorder, recurrent episode with anxious distress F33.9 [place] [address] [place] [address] 71423- 5886 Jul, Fibromyalgia M79.7 [place] [id number] [place] [address] 93454- 0875 Jul, Generalized anxiety disorder F41.1 [place] [address], [place] [address]- 4224 May, [place] [id number] [place] [address] 43064- 5486 May, Hypothyroid E03.9 [place] [id number] [place] [address] 36706- 1461 May, Chronic kidney disease, stage 4 (severe) N18.4 ; Hypothyroid E03.9 ; Restless leg G25.81 ; Fibromyalgia M79.7 ; Essential ( primary) hypertension I10 ; Vitamin D deficiency E55.9 ; Dyspepsia R10.13 ; Acute non-recurrent maxillary sinusitis J01.00 ; Anemia in chronic kidney disease D63.1 ; Chronic kidney disease, unspecified N18.9 and Coronary artery disease involving [place] coronary artery of [place] heart, angina presence unspecified I25.10 [place] [id number] [place] [address] 35238- 5726 May, Vitamin D deficiency, unspecified E55.9 [place] [id number] [place] [address] 27980- 3751 May, Generalized anxiety disorder F41.1 and Major depressive disorder, recurrent episode with anxious distress F33.9 [place] [id number] [place] [address] 33289- 1348 Apr, Pain in right knee M25.561 and Pain in left knee M25.562 [place] [address] [place] [address] 39190- 6830 Apr, [place] [id number] [place] [address] 82768- 1032 Apr, [place] [id number] [place] [address] 63674- 7004 Apr, [place] [address] [place] [address] 12764- 6818 Mar, Generalized anxiety disorder F41.1 and Major depressive disorder, recurrent episode with anxious distress F33.9 [facility] [id number] [place] [address] 26874- 7486 Mar, Generalized anxiety disorder F41.1 and Major depressive disorder, recurrent episode with anxious distress F33.9 [place] [id number] [place] [address] 35548- 0413 Mar, [facility] [address] 23935- 2023 Mar, [facility] [id number] [place] [address] 46266- 7210 Mar, [place] [address] 37460- 7824 Mar, Asthma J45.909 and Fibromyalgia M79.7 [place] [id number] [place] [address] 73085- 5829 Mar, Chronic kidney disease, stage 4 (severe) N18.4 ; Vitamin D deficiency E55.9 and Essential (primary) hypertension I10 [place] [id number] [place] [address] 98075- 9527 Feb, [place] [id number] [place] [address] 25789- 9848 Feb, Dysuria R30.0 ; Mixed stress and urge urinary incontinence N39.46 ; Fibromyalgia M79.7 and Chronic kidney disease, stage IV (severe) N18.4 [place] [id number] [place] [address] 17766- 7499 Feb, Chronic kidney disease, stage 4 (severe) N18.4 [place] [id number] [place] [address] 91196- 1881 Feb, Chronic kidney disease, stage 4 (severe) N18.4 [place] [id number] [place] [address] 63614- 3099 Feb, [place] [id number] [place] [address] 82459- 6416 Feb, Vitamin D deficiency, unspecified E55.9 [place] [id number] [place] [address] 13303- 8160 Jan, [place] [id number] [place] [address] 79463- 4399 Jan, [place] [address] 56131- 0270 Dec, [place] [id number] [place] [address] 54493- 6008 Dec, Chronic kidney disease, stage 4 (severe) N18.4 [place] [id number] [place] [address] 09938- 5309 Dec, Dysthymic disorder F34.1 and Generalized anxiety disorder F41.1 [place] [id number] [place] [address] 54883- 7351 Dec, [place] [id number] [place] [address] 31525- 2487 Dec, [place] [id number] [place] [address] 74731- 9071 Dec, Dysthymic disorder F34.1 and Generalized anxiety disorder F41.1 [place] [id number] [place] [address] 38521- 9174 Dec, Dysuria R30.0 ; Chronic kidney disease, stage 4 (severe) N18.4 ; Hypertension I10 ; Dyspepsia R10.13 ; Yeast dermatitis B37.2 ; Palpitations R00.2 ; Hypothyroid E03.9 ; Functional 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 and Other seasonal allergic rhinitis J30.2 [facility] [id number] [place] [address] 21553 -6011 Dec, [facility] [id number] [place] [address] 65318 -4761 Nov, Dysuria R30.0 and Stress incontinence N39.3 [place] [id number] [place] [address] 95836- 5174 Nov, [place] [id number] [place] [address] 99622- 2296 Nov, [place] [address] 67760- 1482 Nov, Osteoarthritis of knees, bilateral M17.0 [place] [address] 46410- 8004 Nov, Dysthymic disorder F34.1 and Generalized anxiety disorder F41.1 [place] [address] 23887- 6687 Nov, [place] [address] 65874- 2598 Nov, [place] [address] 21230- 5344 Nov, Urgency of urination R39.15 [place] [address] 84408- 4326 Nov, [place] [id number] [place] [address] 54999- 0381 Nov, Chronic kidney disease, stage 4 (severe) N18.4 [place] [id number] [place] [address] 63582- 5962 Oct, Hypertension I10 ; Coronary artery disease involving [place] coronary artery of [place] heart, angina presence unspecified I25.10 ; Palpitations R00.2 ; Hypothyroid E03.9 ; Right foot pain M79.671 ; Functional 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 and Other seasonal allergic rhinitis J30.2 [place] [id number] [place] [address] 12019- 6723 Oct, Dysthymic disorder F34.1 and Generalized anxiety disorder F41.1 [place] [address] [address]- 1245 Sep, [facility] [id number] [place] [address] 25985- 6992 Sep, [facility] [id number] [place] [address] 71419- 7668 Sep, [facility] [id number] [place] [address] 53907- 4721 Sep, [facility] [id number] [place] [address] 44819- 1116 Sep, [place] [id number] [place] [address] 07549- 9816 Sep, Dysthymic disorder F34.1 and Generalized anxiety disorder F41.1 [place] [id number] [place] [address] 88746- 5455 16 Sep, 2015 Asthma with acute exacerbation in adult J45.901 ; Dysuria R30.0 ; Chronic kidney disease, stage 4 (severe) N18.4 and History of anemia Z86.2 [place] [id number] [place] [address] 76083- 9505 Sep, Generalized anxiety disorder F41.1 and Dysthymic disorder F34.1 [place] [id number] [place] [address] 99171- 7281 August, Screening breast examination Z12.39 and Acute recurrent maxillary sinusitis J01.01 [place] [address] [place] [address] 97400- 6575 August, Osteoarthritis of knees, bilateral M17.0 [place] [address] [id number] [place] [address] 36877- 4608 August, Chronic kidney disease, stage 4 (severe) N18.4 ; Acute non- recurrent maxillary sinusitis J01.00 ; Urinary problem R39.89 ; Bowel habit changes R19.4 ; Functional 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 and History of colon polyps Z86.010 [facility] [address], [place] [address]- 5447 29 Jul, 2015 Dysthymic disorder F34.1 and Generalized anxiety disorder F41.1 [facility] [id number] [place] [address] 85028- 2475 Jul, [facility] [id number] [place] [address] 49696- 8990 Jul, Dysthymic disorder F34.1 ; Generalized anxiety disorder F41.1 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 [facility] [id number] [place] [address] [phone] Jul, [facility] [id number] [place] [address] [phone] Jun, [facility] [id number] [place] [address] [phone] Jun, [facility] [id number] [place] [address] [phone] May, [facility] [id number] [place] [address] [id number] May, Dysthymic disorder F34.1 and Generalized anxiety disorder F41.1 [facility] [id number] [place] [address] [address]- 1091 Apr, Kidney disease N28.9 [facility] [id number] [place] [address] 66143- 3849 Apr, Generalized anxiety disorder F41.1 and Dysthymic disorder F34.1 [facility] [id number] [place] [address] 96525- 9114 Apr, Chronic kidney disease, stage 4 (severe) N18.4 [facility] [id number] [place] [address] 51293- 2800 Apr, Generalized anxiety disorder F41.1 ; Major depression, recurrent F33.9 and Sleep disturbance G47.9 [facility] [id number] [place] [address] 74758- 3242 Mar, Generalized anxiety disorder F41.1 and Dysthymic disorder F34.1 [facility] [address] 56429- 6296 Mar, Generalized anxiety disorder F41.1 ; Dysthymic disorder F34.1 and Insomnia G47.00 [facility] [address] 94030- 3243 Mar, [facility] [address] 48966- 8758 Mar, [facility] [address] 10395- 5373 Mar, Osteoarthritis of knees, bilateral M17.[address] 38508- 6232 Mar, Hypertension I10 ; Hypothyroid E03.9 ; Dysthymic disorder F34.1 ; Chronic kidney disease, stage 4 (severe) N18.4 and Nausea & vomiting R11.2 [address] [address] 52098- 0346 Mar, Generalized anxiety disorder F41.1 ; Dysthymic disorder F34.1 and Insomnia G47.00 [place] [address] 82582- 9755 Mar, Dehydration E86.0 ; Chronic kidney disease, stage 4 (severe ) N18.4 and Nausea & vomiting R11.2 [facility] [id number] [place] [address] 63813 -9968 Mar, Gastroenteritis K52.9 [facility] [address] 00404- 8933 Mar, [facility] [address] 94287- 4049 Mar, [id number] [place] [address] 94050- 0823 Feb, Dysthymic disorder F34.1 and Generalized anxiety disorder F41.[address] 61093- 0138 Jan, UTI (urinary tract infection) N39.0 ; Asthma J45.909 ; Coronary artery disease involving [place] coronary artery of [place] heart, angina presence unspecified I25.10 ; Hypertension I10 ; Hypothyroid E03.9 ; Vitamin D deficiency E55.9 ; Insomnia G47.00 ; Palpitations R00.2 ; Depressed F32.9 ; Restless leg G25.81 and Anxiety F41.[address] 16161- 6381 Jan, Dysthymic disorder F34.1 and Generalized anxiety disorder F41.[address] 79589- 2548 Jan, [address] 42375- 1565 30 Dec, [address] 35915- 9138 Dec, Alkalosis 276.3 ; Chronic kidney disease, 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.4 ; Hyperpotassemia 276.7 ; Secondary hyperparathyroidism, renal 588.81 ; Proteinuria 791.0 ; Unspecified vitamin D deficiency 268.9 ; Anemia in chronic kidney disease 285.21 ; Other and unspecified hyperlipidemia 272.4 ; Hypertension, essential, benign 401.1 and Chronic kidney disease (CKD), stage III (moderate) 585.[address] 11645- 8118 Dec, [address] 69134- 7841 Dec, Depressive disorder, not elsewhere classified 311 and Generalized anxiety disorder 300.[address] 92400- 4449 Dec, [facility] [id number] [place] [address] 42534- 5102 Dec, [facility] [id number] [place] [address] 17185- 8747 Nov, Depressive disorder, not elsewhere classified 311 and Generalized anxiety disorder 300.02 [facility] [id number] [place] [address] 55689- 5075 Nov, Arthritis of both knees 716.96 [facility] [id number] [place] [address] 23810- 5185 Nov, PAF (paroxysmal atrial fibrillation) 427.31 ; CAD (coronary artery disease) 414.00 ; Chest pain 786.50 and Chronic kidney disease (CKD) stage G4/A1, severely decreased glomerular filtration rate (GFR) between 15-29 mL/min/1.73 square meter and albuminuria creatinine ratio less than 30 mg/g 585.4 [place] [id number] [place] [address] 60501- 1637 Oct, Coronary atherosclerosis of unspecified type of vessel, [place] or graft 414.00 ; Chronic kidney disease, 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.4 ; Hypertension 401.9 and Edema 782.3 [place] [id number] [place] [address] 60054- 6169 Oct, Depressive disorder, not elsewhere classified 311 and Generalized anxiety disorder 300.02 [facility] [id number] [place] [address] 16734- 2355 Oct, Depressive disorder, not elsewhere classified 311 and Generalized anxiety disorder 300.02 [facility] [id number] [place] [address] 23768- 4516 Oct, [facility] [id number] [place] [address] 54938- 1455 Oct, [facility] [id number] [place] [address] 25419- 9361 Sep, [place] [id number] [place] [address] 01792- 7454 Sep, Chronic kidney disease, 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.4 [facility] [id number] [place] [address] 35350- 7928 Sep, [facility] [id number] [place] [address] 83248- 7162 Sep, Coronary atherosclerosis of unspecified type of vessel, [place] or graft 414.00 ; Hypertension 401.9 ; Edema 782.3 and Hypothyroidism 244.9 [place] [id number] [place] [address] 54356- 0760 Sep, Coronary atherosclerosis of unspecified type of vessel, [place] or graft 414.00 ; Hypertension 401.9 ; Fibromyalgia 729.1 ; Edema 782.3 ; Hypothyroidism 244.9 and Anemia 285.9 [place] [address] 14877- 0187 Sep, Anxiety disorder, unspecified 300.00 and Depressive disorder , not elsewhere classified 311 [facility] [id number] [place] [address] 33715- 2075 Sep, [facility] [id number] [place] [address] 08525- 7720 August, Generalized anxiety disorder 300.02 [facility] [id number] [place] [address] 91001- 2686 August, Closed fracture of lateral malleolus 824.2 [facility] [id number] [place] [address] 03891- 6136 Jul, [facility] [id number] [place] [address] 85019- 8512 Jul, [facility] [id number] [place] [address] 49756- 8599 Jun, [facility] [id number] [place] [address] 32612- 5329 Jun, [facility] [place] [facility] [address] [id number] [place] [address]- 3893 Jun, [facility] [place] [facility] [address] [id number] [place] [address]- 7231 Jun, [facility] [place] [facility] [address] [id number] [place] [address]- 7446 Jun, [facility] [place] [facility] [address] [id number] [place] [address]- 7553 Jun, [facility] [place] [facility] [address] [id number] [place] [address]- 5418 May, 2014 [facility] [place] [facility] [address] [id number] [place] [address]- 2043 May, 2014 [facility] [place] [facility] [address] [id number] [place] [address]- 3783 18 May, 2014 [facility] [place] [facility] [address] [id number] [place] [address]- 2216 18 May, 2014 [facility] [place] [facility] [address] [id number] [place] [address]- 1410 16 May, 2014 [facility] [place] [facility] [address] [id number] [place] [address]- 6294 16 May, 2014 [facility] [place] [facility] [address] [id number] [place] [address]- 2384 May, 2014 [facility] [place] [facility] [address] [id number] [place] [address]- 4804 May, 2014 [facility] [place] [facility] [address] [id number] [place] [address]- 6724 10 May, 2014 [facility] [place] [facility] [address] [id number] [place] [address]- 2374 10 May, 2014 [facility] [place] [facility] [address] [id number] [place] [address]- 1697 Apr, [facility] [place] [facility] [address] [id number] [place] [address]- 7388 Apr, [facility] [address] [id number] [place] [address]- 2751 Mar, [facility] [place] [facility] [address] [id number] [place] [address]- 0597 Mar, [facility] [place] [facility] [address] [id number] [place] [address]- 1997 Mar, [facility] [place] [facility] [address] [id number] [place] [address]- 8157 Mar, [facility] [place] [facility] [address] [id number] [place] [address]- 3501 Mar, [facility] [place] [facility] [address] [id number] [place] [address]- 0169 Mar, [facility] [place] [facility] [address] [id number] [place] [address]- 0256 Mar, [facility] [place] [facility] [address] [id number] [place] [address]- 6621 Feb, [facility] [place] [facility] [address] [id number] [place] [address]- 2015 Feb, [facility] [place] [facility] [address] [id number] [place] [address]- 4713 Feb, [facility] [place] [facility] [address] [id number] [place] [address]- 4101 Jan, [facility] [place] [facility] [address] [id number] [place] [address]- 0598 Jan, [facility] [place] [facility] [address] [id number] [place] [address]- 3969 Jan, [facility] [place] [facility] [address] [id number] [place] [address]- 3086 Jan, [facility] [place] [facility] [address] [id number] [place] [address]- 9028 Jan, [facility] [place] [facility] [address] [id number] [place] [address]- 0750 Jan, [facility] [place] [facility] [address] [id number] [place] [address]- 6182 Jan, [facility] [place] [facility] [address] [id number] [place] [address]- 5413 Jan, [facility] [place] [facility] [address] [id number] [place] [address]- 8231 Jan, [facility] [place] [facility] [address] [id number] [place] [address]- 1911 Jan, [facility] [place] [facility] [address] [id number] [place] [address]- 1087 Nov, [facility] [place] [facility] [address] [id number] [place] [address]- 0474 Nov, [facility] [place] [facility] [address] [id number] [place] [address]- 5802 Nov, [facility] [place] [facility] [address] [id number] [place] [address]- 5456 Oct, [facility] [place] [facility] [address] [id number] [place] [address]- 7703 Oct, [facility] [place] [facility] [address] [id number] [place] [address]- 2288 Oct, [facility] [place] [facility] [address] [id number] [place] [address]- 0566 Oct, [facility] [place] [facility] [address] [id number] [place] [address]- 5159 Oct, [facility] [place] [facility] [address] [id number] [place] [address]- 2468 Oct, [facility] [place] [facility] [address] [id number] [place] [address]- 1400 Oct, [facility] [place] [facility] [address] [id number] [place] [address]- 1380 Oct, [facility] [place] [facility] [address] [id number] [place] [address]- 8785 Oct, [facility] [place] [facility] [address] [id number] [place] [address]- 7852 Sep, [facility] [place] [facility] [address] [id number] [place] [address]- 7729 Sep, [facility] [place] [facility] [address] [id number] [place] [address]- 2268 Sep, [facility] [place] [facility] [address] [id number] [place] [address]- 6450 Sep, [facility] [place] [facility] [address] [id number] [place] [address]- 9296 Sep, [facility] [place] [facility] [address] [id number] [place] [address]- 4849 Sep, [facility] [place] [facility] [address] [id number] [place] [address]- 8841 Sep, [facility] [place] [facility] [address] [id number] [place] [address]- 5646 Sep, [facility] [place] [facility] [address] [id number] [place] [address]- 8111 Sep, [facility] [place] [facility] [address] [id number] [place] [address]- 3475 August, [facility] [place] [facility] [address] [id number] [place] [address]- 8718 August, [facility] [place] [facility] [address] [id number] [place] [address]- 8258 August, [facility] [place] [facility] [address] [id number] [place] [address]- 5875 August, [facility] [place] [facility] [address] [id number] [place] [address]- 9244 August, [facility] [place] [facility] [address] [id number] [place] [address]- 9801 August, [facility] [place] [facility] [address] [id number] [place] [address]- 9709 Jul, [facility] [place] [facility] [address] [id number] [place] [address]- 2025 Jul, [facility] [place] [facility] [address] [id number] [place] [address]- 1204 Jul, [facility] [place] [facility] [address] [id number] [place] [address]- 3910 Jul, [facility] [place] [facility] [address] [id number] [place] [address]- 1980 Jul, [facility] [place] [facility] [address] [id number] [place] [address]- 3671 Jul, [facility] [place] [facility] [address] [id number] [place] [address]- 3937 Jun, [facility] [place] [facility] [address] [id number] [place] [address]- 8549 Jun, [facility] [place] [facility] [address] [id number] [place] [address]- 1585 May, [facility] [place] [facility] [address] [id number] [place] [address]- 6528 May, [facility] [place] [facility] [address] [id number] [place] [address]- 5350 May, [facility] [place] [facility] [address] [id number] [place] [address]- 4857 May, [facility] [place] [facility] [address] [id number] [place] [address]- 3602 Apr, [facility] [place] [facility] [address] [id number] [place] [address]- 1384 Apr, [facility] [place] [facility] [address] [id number] [place] [address]- 8902 18 Mar, 2013 [facility] [place] [facility] [address] [id number] [place] [address]- 7558 18 Mar, 2013 [facility] [place] [facility] [address] [id number] [place] [address]- 3335 17 Mar, 2013 [facility] [place] [facility] [address] [facility] [id number] [place] [address]- 1663 17 Mar, 2013 [facility] [place] [facility] [address] [id number] [place] [address]- 6619 05 Mar, 2013 [facility] [place] [facility] [address] [id number] [place] [address]- 8361 05 Mar, 2013 [facility] [place] [facility] [address] [id number] [place] [address]- 9444 Feb, [facility] [place] [facility] [address] [id number] [place] [address]- 7067 Feb, [facility] [place] [facility] [address] [id number], [place] [address]- 2196 14 Feb, 2013 [facility] [place] [facility] [address] [id number] [place] [address]- 1245 14 Feb, 2013 [facility] [place] [facility] [address] [id number], [place] [address]- 4618 05 Feb, 2013 [facility] [place] [facility] [address] [id number], [place] [address]- 4485 05 Feb, 2013 [facility] [place] [facility] [address] [id number], [place] [address]- 3669 24 Jan, 2013 [facility] [place] [facility] [address] [id number] [place] [address]- 0596 24 Jan, 2013 [facility] [place] [facility] [address] [facility] [id number], [place] [address]- 5384 10 Jan, 2013 [facility] [place] [facility] [address] [id number], [place] [address]- 6174 10 Jan, 2013 [facility] [place] [facility] [address] [id number] [place] [address]- 4320 Jan, [facility] [address] [id number] [place] [address]- 9555 Jan, [facility] [address] [id number] [place] [address]- 0586 Dec, [facility] [address] [id number] [place] [address]- 8575 Dec, [facility] [address] [id number] [place] [address]- 9703 Nov, [facility] [address] [id number] [place] [address]- 1954 Nov, [facility] [address] [id number] [place] [address]- 9828 Oct, [facility] [address] [id number] [place] [address]- 9414 Oct, [facility] [address] [id number] [place] [address]- 8820 Oct, [facility] [address] [id number] [place] [address]- 6873 Oct, [facility] [address] [id number] [place] [address]- 7810 Oct, [facility] [place] [facility] [address] [id number] [place] [address]- 0038 Oct, [facility] [place] [facility] [address] [id number] [place] [address]- 5196 Sep, [facility] [place] [facility] [address] [id number] [place] [address]- 8776 Sep, [facility] [place] [facility] [address] [id number] [place] [address]- 3885 Sep, [facility] [place] [facility] [address] [id number] [place] [address]- 3120 Sep, [facility] [address] [id number] [place] [address]- 6739 August, [facility] [address] [id number] [place] [address]- 0789 August, [facility] [address] [id number] [place] [address]- 1996 August, [facility] [address] [id number] [place] [address]- 1272 August, [facility] [address] [id number] [place] [address]- 6285 August, [facility] [address] [id number] [place] [address]- 0771 Jul, [facility] [address] [id number] [place] [address]- 0525 Jul, [facility] [address] [id number] [place] [address]- 9350 Jul, [facility] [address] [id number] [place] [address]- 0581 Jul, [facility] [address] [id number] [place] [address]- 8855 Jul, [facility] [address] [id number] [place] [address]- 1678 Jul, [facility] [address] [id number], [place] [address]- 8255 Jul, [facility] [address] [id number] [place] [address]- 1021 Jul, [facility] [address] [id number] [place] [address]- 9894 Jul, [facility] [address] [id number], [place] [address]- 4886 Jul, [facility] [place] [address] [id number] [id number] Jun, [facility] [address] [id number] [place] [address]- 9138 Jun, [facility] [address] [id number] [place] [address]- 2091 Jun, [facility] [address] [id number] [place] [address]- 9399 Jun, [facility] [place] [facility] [address] [id number] [place] [address]- 1798 Jun, [facility] [address] [id number] [place] [address]- 2623 May, [facility] [place] [facility] [address] [id number] [place] [address]- 4296 May, [facility] [address] [id number] [place] [address]- 5880 May, [facility] [address] [id number] [place] [address]- 0081 Apr, [facility] [address] [id number] [place] [address]- 6106 Apr, [facility] [address] [id number] [place] [address]- 8050 Apr, [facility] [address] [id number], [place] [address]- 5358 Apr, [facility] [place] [facility] [address] [id number], [place] [address]- 1787 Apr, [facility] [place] [facility] [address] [id number] [place] [address]- 4682 Apr, [facility] [place] [facility] [address] [id number] [place] [address] Mar, [facility] [place] [facility] [address] [id number] [place] [address] Mar, [facility] [place] [facility] [address] [id number] [place] [address] Mar, [facility] [place] [facility] [address] [id number] [place] [address] Mar, [facility] [place] [facility] [address] [id number] [place] [address] Feb, [facility] [place] [facility] [address] [id number] [place] [address] Feb, [facility] [place] [facility] [address] [id number] [place] [address] Feb, [facility] [place] [facility] [address] [id number] [place] [address] Feb, [facility] [place] [facility] [address] [id number] [place] [address] Feb, [facility] [place] [facility] [address] [id number] [place] [address] Feb, [facility] [place] [facility] [address] [id number] [place] [address] Feb, [facility] [place] [facility] [address] [id number] [place] [address] Feb, [facility] [place] [facility] [address] [facility] [id number] [place] [address] Feb, [facility] [place] [facility] [address] [id number] [place] [address] Feb, [facility] [place] [facility] [address] [id number] [place] [address] Feb, [facility] [place] [facility] [address] [id number] [place] [address]- [address] Feb, [facility] [place] [facility] [address] [facility] [id number] [place] [address] Feb, [facility] [place] [facility] [address] [id number] [place] [address] Feb, [facility] [place] [facility] [address] [id number] [place] [address] Feb, [facility] [place] [facility] [address] [id number] [place] [address]97 Feb, [facility] [place] [facility] [address] [id number] [place] [address] Jan, [facility] [place] [facility] [address] [id number] [place] [address]- [address] Jan, [facility] [place] [facility] [address] [id number] [place] [address] Jan, [facility] [place] [facility] [address] [id number] [place] [address] Jan, [facility] [place] [facility] [address] [id number] [place] [address] Jan, [facility] [place] [facility] [address] [id number], [place] [address] Jan, [facility] [place] [facility] [address] [id number], [place] [address] Jan, [facility] [place] [facility] [address] [facility] [id number], [place] [address] Jan, [facility] [place] [facility] [address] [id number], [place] [address] Jan, [facility] [place] [facility] [address] [id number], [place] [address] Jan, [facility] [place] [facility] [address] [id number][place] [address] Jan, [facility] [place] [facility] [address] [facility] [id number], [place] [address] Jan, [facility] [place] [facility] [address] [facility] [id number], [place] [address] Dec, [facility] [place] [facility] [address] [id number], [place] [address] 26 Sep, 2011 [facility] [place] [facility] [address] [id number] [place] [address]46 24 Sep, 2011 [facility] [place] [facility] [address] [id number] [place] [address] 2546 23 Sep, 2011 [facility] [place] [facility] [address] [id number] [place] [address] 2546 22 Sep, 2011 [facility] [place] [facility] [address] [id number] [place] [address] 2546 21 Sep, 2011 [facility] [place] [facility] [address] [id number] [place] [address]- [address] 20 Sep, 2011 [facility] [place] [facility] [address] [id number] [place] [address] 20 Sep, 2011 [facility] [place] [facility] [address] [id number] [place] [address]- [address] 07 Sep, 2011 [facility] [place] [facility] [address] [id number] [place] [address]- [address] 06 Sep, 2011 [facility] [place] [facility] [address] [id number] [place] [address]- [address] 06 Sep, 2011 [facility] [place] [facility] [address] [id number] [place] [address]- [address] 05 Sep, 2011 [facility] [place] [facility] [address] [id number] [place] [address]- [address]167 23 Nov, 2011 [facility] [place] [facility] [address] [id number] [place] [address]- [address]46 17 Nov, 2011 [facility] [place] [facility] [address] [id number] [place] [address]- [address] 13 Nov, 2011 [facility] [place] [facility] [address] [id number] [place] [address]- [address]196 10 Nov, 2011 [facility] [place] [facility] [address] [id number] [place] [address] 08 Nov, 2011 [facility] [place] [facility] [address] [id number] [place] [address] Nov, [facility] [place] [facility] [address] [id number] [place] [address] Nov, [facility] [place] [facility] [address] [id number] [place] [address] Nov, [facility] [place] [facility] [address] [id number] [place] [address] Oct, [facility] [place] [facility] [address] [id number] [place] [address] Oct, [facility] [place] [facility] [address] [id number] [place] [address] Oct, [facility] [place] [facility] [address] [id number] [place] [address] Oct, [facility] [place] [facility] [address] [id number] [place] [address] Oct, [facility] [place] [facility] [address] [id number] [place] [address] Oct, [facility] [place] [facility] [address] [id number] [place] [address] Oct, [facility] [place] [facility] [address] [id number] [place] [address] Sep, [facility] [place] [facility] [address] [id number] [place] [address] Sep, [facility] [place] [facility] [address] [id number] [place] [address] August, [facility] [place] [facility] [address] [id number] [place] [address] August, [facility] [place] [facility] [address] [id number] [place] [address] August, [facility] [place] [facility] [address] [id number] [place] [address] August, [facility] [address] [id number] [place] [address] Jul, [facility] [place] [facility] [address] [id number] [place] [address] Jul, [facility] [place] [facility] [address] [id number] [place] [address] Jul, [facility] [place] [facility] [address] [id number] [place] [address] Jul, [facility] [place] [facility] [address] [id number] [place] [address] Jul, [facility] [place] [facility] [address] [id number] [place] [address] Jul, [facility] [place] [facility] [address] [id number] [place] [address] Jul, [facility] [place] [facility] [address] [id number] [place] [address] Jul, [facility] [place] [facility] [address] [id number] [place] [address] Jul, [facility] [place] [facility] [address] [id number] [place] [address] Jun, [facility] [place] [facility] [address] [id number], [place] [address] 19 Jun, 2011 [facility] [place] [facility] [address] [id number], [place] [address] 15 Jun, 2011 [facility] [place] [facility] [address] [id number] [place] [address] 14 Jun, 2011 [facility] [place] [facility] [address] [id number] [place] [address] 12 Jun, 2011 [facility] [place] [facility] [address] [id number] [place] [address] 09 Jun, 2011 [facility] [place] [facility] [address] [id number] [place] [address] Jun, [facility] [address] [id number] [place] [address] May, [facility] [place] [facility] [address] [id number] [place] [address] 2546 24 May, 2011 [facility] [address] [id number] [place] [address] 2546 May, [facility] [address] [id number] [place] [address] May, [facility] [address] [id number] [place] [address] May, [facility] [address] [id number] [place] [address] Apr, [facility] [address] [id number] [place] [address] Apr, [facility] [address] [id number] [place] [address] Apr, [facility] [address] [id number] [place] [address] Apr, [facility] [address] [id number] [place] [address] Apr, [facility] [address] [id number] [place] [address] Mar, [facility] [address] [id number] [place] [address] 2546 Mar, [facility] [place] [facility] [address] [id number] [place] [address] 2546 Mar, [facility] [place] [facility] [address] [id number] [place] [address] 2546 Mar, [facility] [address] [id number] [place] [address] 2835 Mar, [facility] [place] [facility] [address] [id number] [place] [address] 4056 Mar, [facility] [place] [facility] [address] [id number] [place] [address] 9475 Mar, [facility] [place] [facility] [address] [id number] [place] [address] Feb, [facility] [place] [facility] [address] [id number] [place] [address] Feb, [facility] [place] [facility] [address] [id number] [place] [address]169 Feb, [facility] [place] [facility] [address] [id number] [place] [address] Feb, [facility] [place] [facility] [address] [id number] [place] [address] Jan, [facility] [place] [facility] [address] [id number] [place] [address] Jan, [facility] [place] [facility] [address] [id number] [place] [address] Jan, [facility] [place] [facility] [address] [id number] [place] [address] 9860 Jan, [facility] [place] [facility] [address] [id number] [place] [address] Nov, [facility] [place] [facility] [address] [id number] [place] [address] 47[address] Mar, [facility] [place] [facility] [address] [id number] [place] [address] 79[address] Mar, [facility] [place] [facility] [address] [id number] [place] [address] 3926 Mar, [facility] [place] [facility] [address] [id number] [place] [address] Mar, [facility] [place] [facility] [address] [id number], [place] [address] Mar, [facility] [id number] [address] Mar, [facility] [id number] [address] Feb, [facility] [id number] [place] [address]- [address] Feb, [facility] [id number] [place] [address]- [address] Jan, [facility] [id number] [place] [address]- [address] Jan, [facility] [id number] [place] [address] Jan, IMMUNIZATIONS Vaccine Route Administration Date Status FLUARIX QUAD (3 AND UP) 2016 IM Intramuscular Jan 17, 2017 Administered SOCIAL HISTORY Never Assessed REASON FOR VISIT Hospital f/u- [facility], strep meningitis 12/08/16, persistant headache and neck pain--- DBennettRN, persistant nausea, worse in the morning since in the hospital, hair falling out x several months PLAN OF CARE Activity Details Follow Up 3 months or prn Reason:thyroid or pain VITAL SIGNS Height 63 in 2017-01-17 Weight 242 lbs 2017-01-17 Temperature 97.8 degrees Fahrenheit 2017-01-17 Heart Rate 100 bpm 2017-01-17 Respiratory Rate 20 2017-01-17 BMI 42.86 kg/m2 2017-01-17 Blood pressure systolic 148 mmHg 2017-01-17 Blood pressure diastolic 86 mmHg 2017-01-17 MEDICATIONS Medication Instructions Dosage Frequency Start Date End Date Duration Status Nystatin 170406 UNIT/GM Externally Twice a day 1 application to thighs as needed 12h 19 Sep, 2016 Active Potassium Chloride ER 10 MEQ TAKE ONE CAPSULE BY MOUTH ONCE DAILY WITH FOOD 30 Active Ferrous Sulfate 325 (65 Fe) MG Orally Once a day 1 tablet 24h Active Clonazepam 1 MG Orally Twice a day as needed 1 tablet 30 days Active Gemfibrozil 600 MG Orally Twice a day 1 tablet 12h 30 Active Furosemide 40 mg Orally Once a day 1 tablet 24h 30 Active Toprol XL 50 MG TAKE ONE TABLET BY MOUTH THREE TIMES DAILY 30 Active Lyrica 150 MG Orally 3 times a day 1 capsule 8h Active Fish Oil 1200 MG Orally Once a day 1 capsule 24h 30 days Active Vitamin D (Ergocalciferol) 56366 UNIT Orally once weekly 1 capsule Active Losartan Potassium 100 mg Orally Once a day 1 tablet 24h 30 Active Vitamin C 1000 MG Orally Once a day 1 tablet 24h Active Symbicort 80-4.5 MCG/ACT Inhalation Twice a day 2 puffs 12h Mar, Active Fiber Complete - Active Synthroid 137 MCG Orally Once a day 1 tablet 24h 30 Active Cymbalta 60 MG Orally Once a day 1 capsule 24h Active Protonix 40 mg Orally Once a day 1 tablet 24h 30 Active Nystatin 695964 UNIT/ML Mouth/Throat Four times a day 4 ml 6h Active Fluticasone Propionate 50 MCG/ACT Nasally Once a day USE ONE SPRAY IN EACH NOSTRIL TWICE DAILY 24h Active Requip 4 MG Orally do not fill in er Once a day 2 tablets 1 to 3 hours before bedtime 24h 30 Active Trileptal 300 MG Orally one in the morning, and two at night 1 tablet Oct, 30 days Active Cetirizine HCl 10 MG TAKE ONE TABLET BY MOUTH ONCE DAILY August, 30 Active ProAir HFA 108 (90 Base) MCG/ACT Inhalation every 4 hrs 2 puffs as needed 4h Sep, Active Trazodone HCl 100 MG Orally Once a day 0.5-1 tablet at night as needed for sleep 24h Dec, 30 day(s) Active Norvasc 5 mg Orally Once a day 1 tablet 24h Active Voltaren 1 % Transdermal to knee BID. Max dose 4 grams 2 grams Jan, 8 Active RESULTS No Results PROCEDURES Procedure Date Ordered Result Body Site [facility] VISIT ESTABLISHED PATIENT Jan 17, 2017 SINGLE IMMUNIZATION ADMIN Jan 17, 2017 FLUARIX QUAD (3 & UP)-GSK-2015 Jan 17, 2017 INSTRUCTIONS MEDICATIONS ADMINISTERED No [...] 2020 & 2007 Surgical History Bladder surgery [facility] 03/2016 Hospitalization History Surgeries Only Hospitalization History bacterial meningitis December 2016 Hospitalization History [facility] psych for SI 1988 Hospitalization History [facility]-Altered mental status 05/2017
--- OUTSIDE RECORDS SUMMARY | 2018-05-29 08:09 | XMS REPORT ---
Author Author ISABEL MAE [facility] Address [address] [place] [address] Care Team Providers Care Credit Or Loans Officer Name Role Phone ISABEL MAE Unavailable PROBLEMS Type Condition ICD9-CM Code RIW03-OS Code Onset Dates Condition Status SNOMED Code Problem Long-term use of high-risk medication Z79.899 Active 088780526 Problem Abnormal chest CT R93.8 Active 995347840 Problem Low back pain M54.5 Active 144338147 Problem Generalized anxiety disorder F41.1 Active 67069520 Problem Dysthymic disorder F34.1 Active 18475473 Problem Coronary artery disease involving [place] coronary artery of [place] heart, angina presence unspecified I25.10 Active 2632911761990 Problem Depressed F32.9 Active 60593553 Problem Fibromyalgia M79.7 Active 837211273 Problem Hypothyroid E03.9 Active 20873534 Problem Essential (primary) hypertension I10 Active 57256777 Problem Insomnia G47.00 Active 343780839 Problem Vitamin D deficiency E55.9 Active 63593998 Problem Anemia in chronic kidney disease D63.1 Active 102567198279991 Problem Chronic kidney disease, unspecified N18.9 Active 386271084 Problem Body mass index (BMI) of 40.0-44.9 in adult Z68.41 Active 964902994 Problem Stage 3 chronic kidney disease N18.3 Active 312439225 Problem Restless leg G25.81 Active 48001211 Problem Palpitations R00.2 Active 78535662 Problem Asthma J45.909 Active 520687186 Problem Primary osteoarthritis of left knee M17.12 Active 717011945 Problem Bipolar disorder, current episode manic without psychotic features F31.10 Active 724507123 Problem Mood disorder F39 Active 44873800 Problem Degenerative tear of medial meniscus of left knee M23.204 Active 576994333 Problem History of colon polyps Z86.010 Active 434619918 Problem Asthma with acute exacerbation in adult J45.901 Active 117899521 Problem Chronic kidney disease, stage 4 (severe) N18.4 Active 599100686 Problem Functional 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 Active 93429450 Problem Hypokalemia E87.6 Active 06175401 Problem Mixed stress and urge urinary incontinence N39.46 Active 230939977 Problem History of anemia Z86.2 Active 685603907 Problem Other seasonal allergic rhinitis J30.2 Active 795946738 ALLERGIES No Information ENCOUNTERS Encounter Location Date Diagnosis [facility] [id number] [place] [address] 87688- 0994 Oct, [facility] [address] 24913- 6166 Sep, [facility] [address] 76802- 4358 August, Fibromyalgia M79.7 [facility] [address] 57092- 5552 August, [facility] [address] 39757- 2308 August, [facility] [address] 62062- [address]102 August, [address] chest [address] R93.8 [facility] [id number] [place] [address] 06579- 3194 August, Generalized anxiety disorder F41.1 and Major depressive disorder, recurrent episode with anxious distress F33.9 [facility] [id number] [place] [address] 36257- [address] August, [address] R93.8 [facility] [id number] [place] [address] 33152- 2955 Jul, [facility] [id number] [place] [address] 86461- 0162 Jul, Chronic kidney disease, stage 4 (severe) N18.4 [facility] [address] 50872- 8736 Jul, [facility] [id number] [place] [address] 56388- 7283 Jul, Restless leg G25.81 ; Mixed stress and urge urinary incontinence N39.[address] [facility] [id number] [place] [address] 22249- 1913 Jul, Chronic kidney disease, stage 4 (severe) N18.4 [facility] [id number] [place] [address] 09217- 3261 Jun, Orthostatic hypotension I95.1 ; Chronic kidney disease, stage 4 (severe) N18.4 ; Chest wall discomfort R07.89 and Body mass index (BMI) of 40.0-44.9 in adult Z68.41 [facility] [id number] [place] [address] 81118- 2453 Jun, [facility] [id number] [place] [address] 37373- 2317 Jun, Orthostatic hypotension I95.1 [facility] [id number] [place] [address] 14237- 6762 Jun, [facility] [id number] [place] [address] 06260 -3879 Jun, Orthostatic hypotension I95.1 ; Dysuria R30.0 and Acute cystitis without hematuria N30.00 [facility] [id number] [place] [address] 10047- 8023 Jun, [facility] [id number] [place] [address] 70759- 6723 Jun, Chronic kidney disease, stage 4 (severe) N18.4 [facility] [id number] [place] [address] 26685- 7422 Jun, Fibromyalgia M79.7 [facility] [id number] [place] [address] 59174- 4410 Jun, [facility] [address] [address]- 0733 Jun, [facility] [id number] [place] [address] 10194- 4152 May, Ab[address] R93.8 and Stage [address] kidney disease [address]3 [facility] [id number] [place] [address] 74220- 2466 May, Chronic kidney disease, stage 4 (severe) N18.4 [facility] [id number] [place] [address] 73933- 3049 May, Chronic kidney disease, stage 4 (severe) N18.4 [facility] [id number] [place] [address] 06155- [address]9 May, Ab[address] chest [address] R93.8 [facility] [id number] [place] [address] 67266- 9355 May, [facility] [id number] [place] [address] 74336- 5328 May, [facility] [id number] [place] [address] 87704- 8144 May, Generalized anxiety disorder F41.1 and Major depressive disorder, recurrent episode with anxious distress F33.9 [facility] [id number] [place] [address] 94473- 5491 May, Mood disorder F39 [facility] [address] [address]- 376[address] Apr, [facility] [id number] [place] [address] 56154- 2407 Apr, Infected skin lesion L08.9 and Muscle strain of right shoulder region, initial encounter S46.911A [facility] [address] [address]- 1056 Apr, Generalized anxiety disorder F41.1 and Major depressive disorder, recurrent episode with anxious distress F33.9 [facility] [address] [address]- 7118 Apr, [facility] [id number] [place] [address] 23613- 9050 Apr, Recent urinary tract infection Z87.440 and Hypothyroid E03.9 [facility] [id number] [place] [address] 98038- 5888 Apr, Generalized anxiety disorder F41.1 and Major depressive disorder, recurrent episode with anxious distress F33.9 [facility] [id number] [place] [address] 79131- 6726 Apr, Recent urinary tract infection Z87.440 [facility] [id number] [place] [address] 33616- 5235 Mar, [facility] [id number] [place] [address] 33779 -1423 Mar, Dysuria R30.0 ; Acute cystitis without hematuria N30.00 and BMI 40.0-44.9, adult Z68.41 [facility] [id number] [place] [address] 75133- 7805 Mar, [facility] [id number] [place] [address] 19428- 4255 Mar, [facility] [id number] [place] [address] 63389- 1267 Mar, Generalized anxiety disorder F41.1 and Major depressive disorder, recurrent episode with anxious distress F33.9 [facility] [id number] [place] [address] 18370- 9992 Feb, Conjunctivitis, bacterial H10.9 [facility] [id number] [place] [address] 84316- 9099 Feb, [facility] [id number] [place] [address] 65660 -3958 Feb, Conjunctivitis, bacterial H10.9 [facility] [id number] [place] [address] 32519- 9127 Feb, [facility] [id number] [place] [address] 48662 -6593 Feb, Dysuria R30.0 ; Acute cystitis N30.00 and BMI 40.0-44.9, adult Z68.41 [facility] [address] 89416- 5049 Feb, [facility] [address] 00111- 5877 Feb, Generalized anxiety disorder F41.1 and Major depressive disorder, recurrent episode with anxious distress F33.9 [facility] [id number] [place] [address] 19350- 9466 Feb, Mood disorder F39 and BMI 40.0-44.9, adult Z68.41 [facility] [id number] [place] [address] 23812- 3099 Jan, [facility] [address] 79824- 7187 Jan, [facility] [id number] [place] [address] 03130- 6671 Jan, Hypothyroid E03.9 [facility] [id number] [place] [address] 41743- 6480 Jan, [facility] [id number] [place] [address] 74471- 9002 Jan, Chronic kidney disease, unspecified N18.9 ; Hypokalemia E87.6 ; Essential (primary) hypertension I10 ; Fibromyalgia M79.7 ; Coronary artery disease involving [place] coronary artery of [place] heart, angina presence unspecified I25.10 ; Hypothyroid E03.9 and Encounter for immunization Z23 [facility] [address] 45684- 4753 Jan, Hypothyroid E03.9 [facility] [id number] [place] [address] 76935- 1282 02 Jan, 2017 [facility] [id number] [place] [address] 42959- 6334 28 Dec, 2016 Vitamin D deficiency E55.9 [facility] [id number] [place] [address] 81997- 5107 28 Dec, 2016 Primary osteoarthritis of left knee M17.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 [facility] [id number] [place] [address] 48007- 1466 19 Dec, [address] [facility] [id number] [place] [address] 03318- 2335 18 Dec, 2016 Mood disorder F39 [facility] [id number] [place] [address] 09809- 1223 13 Dec, 2016 [facility] [id number] [place] [address] 09081- 2545 13 Dec, 2016 Generalized anxiety disorder F41.1 and Major depressive disorder, recurrent episode with anxious distress F33.9 [facility] [id number] [place] [address] 04846- 8558 11 Dec, 2016 [facility] [id number] [place] [address] 60276- 4397 08 Dec, [address] [facility] [id number] [place] [address] 20344- 2540 07 Dec, [address] [facility] [id number] [place] [address] 37961- 9408 07 Dec, 2016 [facility] [id number] [place] [address] 30505- 2545 06 Dec, 2016 Streptococcal meningitis G00.2 [facility] [id number] [place] [address] 67418056- 3979 Dec, [facility] [id number] [place] [address] 34329- 4328 Dec, Major depressive disorder, recurrent episode with anxious distress F33.9 [facility] [id number] [place] [address] 48022- 4074 Nov, Fever, unspecified fever cause R50.9 [facility] [id number] [place] [address] 22076- 0866 Nov, [facility] [id number] [place] [address] 58884- 5531 Nov, Hypothyroid E03.9 [facility] [id number] [place] [address] 38490- 5344 Nov, Generalized anxiety disorder F41.1 and Major depressive disorder, recurrent episode with anxious distress F33.9 [facility] [id number] [place] [address] 42435- 5062 Nov, [facility] [id number] [place] [address] [id number] Oct, Dental examination Z01.20 [facility] [id number] [place] [address] 27851- 6579 Oct, Generalized anxiety disorder F41.1 and Major depressive disorder, recurrent episode with anxious distress F33.9 [facility] [id number] [place] [address] 51633- 2201 Oct, Chronic kidney disease, stage 4 (severe) N18.4 [facility] [id number] [place] [address] 86626- 1429 Oct, [facility] [id number] [place] [address] 64975- 8098 Oct, Fibromyalgia M79.7 [facility] [id number] [place] [address] 62635- 2288 Oct, [facility] [id number] [place] [address] 35228- 0474 Oct, Generalized anxiety disorder F41.1 ; Major depressive disorder, recurrent episode with anxious distress F33.9 and Bipolar disorder, current episode manic without psychotic features F31.10 [facility] [address], [place] [address]- 8651 Sep, [facility] [id number] [place] [address] 71155- 7269 Sep, [facility] [id number] [place] [address] 70831- 1308 Sep, Vitamin D deficiency E55.9 [place] [id number] [place] [address] 68604- 0601 Sep, Vitamin D deficiency E55.9 [facility] [id number] [place] [address] 90209- 0785 Sep, [facility] [id number] [place] [address] 79705- 4878 Sep, Chronic kidney disease, stage 4 (severe) N18.4 ; Hypothyroid E03.9 ; Restless leg G25.81 ; Fibromyalgia M79.7 ; Essential ( primary) hypertension I10 ; Vitamin D deficiency E55.9 ; Dyspepsia R10.13 ; Anemia in chronic kidney disease D63.1 ; Chronic kidney disease, unspecified N18.9 ; Coronary artery disease involving [place] coronary artery of [place] heart , angina presence unspecified I25.10 ; Screening breast examination Z12.39 and Low back pain M54.5 [facility] [id number] [place] [address] 91772- 0538 August, Generalized anxiety disorder F41.1 and Major depressive disorder, recurrent episode with anxious distress F33.9 [facility] [id number] [place] [address] 90526- 4756 August, Generalized anxiety disorder F41.1 and Major depressive disorder, recurrent episode with anxious distress F33.9 [facility] [id number] [place] [address] 61471- 4517 August, Fibromyalgia M79.7 [facility] [address], [place] [address]- 0484 Jul, Generalized anxiety disorder F41.1 and Major depressive disorder, recurrent episode with anxious distress F33.9 [facility] [address], [place] [address]- 5391 Jul, Fibromyalgia M79.7 [facility] [id number] [place] [address] 10182- 6284 Jul, Generalized anxiety disorder F41.1 [facility] [id number] [place] [address] 39744- 4806 May, [facility] [id number] [place] [address] 82048- 5123 May, Hypothyroid E03.9 [facility] [id number] [place] [address] 55313- 5283 May, Chronic kidney disease, stage 4 (severe) N18.4 ; Hypothyroid E03.9 ; Restless leg G25.81 ; Fibromyalgia M79.7 ; Essential ( primary) hypertension I10 ; Vitamin D deficiency E55.9 ; Dyspepsia R10.13 ; Acute non-recurrent maxillary sinusitis J01.00 ; Anemia in chronic kidney disease D63.1 ; Chronic kidney disease, unspecified N18.9 and Coronary artery disease involving [place] coronary artery of [place] heart, angina presence unspecified I25.10 [facility] [address], [place] [address]- 7179 May, Vitamin D deficiency, unspecified E55.9 [facility] [id number] [place] [address] 14917- 6700 May, Generalized anxiety disorder F41.1 and Major depressive disorder, recurrent episode with anxious distress F33.9 [facility] [address], [place] [address]- 5190 Apr, Pain in right knee M25.561 and Pain in left knee M25.562 [facility] [id number] [place] [address] 76011- 0917 Apr, [facility] [id number] [place] [address] 72149- 3281 Apr, [facility] [id number] [place] [address] 86634- 0633 Apr, [facility] [id number] [place] [address] 62453- 6231 Mar, Generalized anxiety disorder F41.1 and Major depressive disorder, recurrent episode with anxious distress F33.9 [facility] [id number] [place] [address] 76858- 9851 Mar, Generalized anxiety disorder F41.1 and Major depressive disorder, recurrent episode with anxious distress F33.9 [facility] [id number] [place] [address] 59915- 7854 Mar, [facility] [id number] [place] [address] 81185- 8772 Mar, [facility] [id number] [place] [address] 03692- 8434 Mar, [facility] [id number] [place] [address] 14156- 1280 Mar, Asthma J45.909 and Fibromyalgia M79.7 [facility] [id number] [place] [address] 67281- 4366 Mar, Chronic kidney disease, stage 4 (severe) N18.4 ; Vitamin D deficiency E55.9 and Essential (primary) hypertension I10 [facility] [id number] [place] [address] 86118- 6107 Feb, [place] [id number] [place] [address] 25153- 8905 Feb, Dysuria R30.0 ; Mixed stress and urge urinary incontinence N39.46 ; Fibromyalgia M79.7 and Chronic kidney disease, stage IV (severe) N18.4 [facility] [id number], [place] [address] 2546 Feb, Chronic kidney disease, stage 4 (severe) N18.4 [facility] [id number] [place] [address] 68699 2546 Feb, Chronic kidney disease, stage 4 (severe) N18.4 [facility] [id number] [place] [address] 96407 2546 Feb, [facility] [id number] [place] [address] 28327 2546 Feb, Vitamin D deficiency, unspecified E55.9 [facility] [id number] [place] [address] 58118 2546 Jan, [facility] [id number] [place] [address] 58080 2546 Jan, [facility] [id number] [place] [address] 36418 2546 30 Dec, 2015 [facility] [id number] [place] [address] 66615 2546 28 Dec, 2015 Chronic kidney disease, stage 4 (severe) N18.4 [facility] [id number] [place] [address] 95404 2546 Dec, Dysthymic disorder F34.1 and Generalized anxiety disorder F41.1 [facility] [address], [place] [address] 2546 [address] [facility] [id number] [place] [address] 67517 25[address] [facility] [id number] [place] [address] 66448 2546 08 Dec, 2015 Dysthymic disorder F34.1 and Generalized anxiety disorder F41.1 [facility] [id number] [place] [address] 98587- 4563 Dec, Dysuria R30.0 ; Chronic kidney disease, stage 4 (severe) N18.4 ; Hypertension I10 ; Dyspepsia R10.13 ; Yeast dermatitis B37.2 ; Palpitations R00.2 ; Hypothyroid E03.9 ; Functional 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 and Other seasonal allergic rhinitis J30.2 [facility] [id number] [place] [address] 20463 -2780 Dec, [facility] [address] 10395 -5551 Nov, Dysuria R30.0 and Stress incontinence N39.3 [place] [address] 83550- 0220 Nov, [place] [address] 68402- 7127 Nov, [place] [address] 06585- 6897 Nov, Osteoarthritis of knees, bilateral M17.0 [place] [address] 51219- 4726 Nov, Dysthymic disorder F34.1 and Generalized anxiety disorder F41.1 [place] [place] [id number] [place] [address] 10327- 9012 Nov, [place] [address] 98754- 7876 Nov, [place] [address] 00934- 9132 Nov, Urgency of urination R39.15 [place] [address] [address] Nov, [place] [address] [place] [id number] [place] [address]9- [address] Nov, Chronic kidney disease, stage 4 (severe) N18.4 [place] [address] [place] [id number] [place] [address]- 3570 Oct, Hypertension I10 ; Coronary artery disease involving [place] coronary artery of [place] heart, angina presence unspecified I25.10 ; Palpitations R00.2 ; Hypothyroid E03.9 ; Right foot pain M79.671 ; Functional 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 and Other seasonal allergic rhinitis J30.2 [place] [address] [place] [id number] [place] [address]67- 3696 Oct, Dysthymic disorder F34.1 and Generalized anxiety disorder F41.1 [place] [address] [place] [id number] [place] [address] 90683- 1154 Sep, [place] [address] [address] Sep, [place] [address] [address]- [address] Sep, [place] [address] [address] Sep, [place] [address] [place] [id number] [place] [address] 83[address]- [address]687 Sep, [place] [address] [place] [id number] [place] [address] 49450- 7244 Sep, Dysthymic disorder F34.1 and Generalized anxiety disorder F41.1 [place] [address] [place] [id number] [place] [address] 65384- 0935 16 Sep, 2015 Asthma with acute exacerbation in adult J45.901 ; Dysuria R30.0 ; Chronic kidney disease, stage 4 (severe) N18.4 and History of anemia Z86.2 [place] [address] [place] [id number] [place] [address] 67473- 1675 Sep, Generalized anxiety disorder F41.[address] [facility] [address] [place] [id number] [place] [address] 29[address]- 9[address] August, Screening breast examination Z12.39 and Acute recurrent maxillary sinusitis J01.01 [place] [id number] [place] [address] 82823- 4475 August, Osteoarthritis of knees, bilateral M17.0 [place] [id number] [place] [address] 53898- 4552 August, Chronic kidney disease, stage 4 (severe) N18.4 ; Acute non- recurrent maxillary sinusitis J01.00 ; Urinary problem R39.89 ; Bowel habit changes R19.4 ; Functional 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 and History of colon polyps Z86.010 [place] [id number] [place] [address] 23223- 2296 Jul, Dysthymic disorder F34.1 and Generalized anxiety disorder F41.1 [place] [address] 74030- 5105 Jul, [place] [address] 17180- 9223 Jul, Dysthymic disorder F34.1 ; Generalized anxiety disorder F41.1 and jail use of drug Z79.899 [place] [address] 34870- 1214 Jul, [place] [id number] [place] [address] 89845- 1169 16 Jun, 2015 [place] [id number] [place] [address] 89581- 7061 08 Jun, 2015 [place] [id number] [place] [address] 44066- 6846 May, [place] [address] 66327- 3138 May, Dysthymic disorder F34.1 and Generalized anxiety disorder F41.1 [place] [id number] [place] [address] 20159- 2517 Apr, Kidney disease N28.9 [place] [id number] [place] [address] 93795- 4586 Apr, Dysthymic disorder F34.1 and Generalized anxiety disorder F41.1 [place] [address] 49561- 1273 Apr, Chronic kidney disease, stage 4 (severe) N18.4 [place] [address] 12234- 3577 Apr, Generalized anxiety disorder F41.1 ; Major depression, recurrent F33.9 and Sleep disturbance G47.9 [place] [address] 39463- 2275 Mar, Generalized anxiety disorder F41.1 and Dysthymic disorder F34.1 [place] [address] 05408- 0051 Mar, Generalized anxiety disorder F41.1 ; Dysthymic disorder F34.1 and Insomnia G47.00 [place] [address] 03287- 3678 Mar, [address] 44612- 0539 Mar, [place] [address] 24405- 1368 Mar, Osteoarthritis of knees, bilateral M17.[address] 84235- 2821 Mar, Hypertension I10 ; Hypothyroid E03.9 ; Dysthymic disorder F34.1 ; Chronic kidney disease, stage 4 (severe) N18.4 and Nausea & vomiting R11.2 [place] [id number] [place] [address] 57711- 8210 Mar, Generalized anxiety disorder F41.1 ; Dysthymic disorder F34.1 and Insomnia G47.00 [place] [id number] [place] [address] 23249- 3806 Mar, Dehydration E86.0 ; Chronic kidney disease, stage 4 (severe ) N18.4 and Nausea & vomiting R11.2 [facility] [id number] [place] [address] 53902 -4462 Mar, Gastroenteritis K52.9 [facility] [id number] [place] [address] 59800- 3268 Mar, [facility] [id number] [place] [address] 02385- 5203 Mar, [place] [id number] [place] [address] 81734- 6496 Feb, Dysthymic disorder F34.1 and Generalized anxiety disorder F41.1 [place] [id number] [place] [address] 58328- 6974 Jan, UTI (urinary tract infection) N39.0 ; Asthma J45.909 ; Coronary artery disease involving [place] coronary artery of [place] heart, angina presence unspecified I25.10 ; Hypertension I10 ; Hypothyroid E03.9 ; Vitamin D deficiency E55.9 ; Insomnia G47.00 ; Palpitations R00.2 ; Depressed F32.9 ; Restless leg G25.[address] [facility] [id number] [place] [address] 32299- 9054 Jan, Dysthymic disorder F34.1 and Generalized anxiety disorder F41.1 [place] [id number] [place] [address] 67678- 1818 Jan, [place] [id number] [place] [address] 08248- 3224 Dec, [place] [id number] [place] [address] 46910- 3610 Dec, Alkalosis 276.3 ; Chronic kidney disease, 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.4 ; Hyperpotassemia 276.7 ; Secondary hyperparathyroidism, renal 588.81 ; Proteinuria 791.0 ; Unspecified vitamin D deficiency 268.9 ; Anemia in chronic kidney disease 285.21 ; Other and unspecified hyperlipidemia 272.4 ; Hypertension, essential, benign 401.1 and Chronic kidney disease (CKD), stage III (moderate) 585.3 [id number] [place] [address] 14769- 5029 Dec, [place] [id number] [place] [address] 56978- 8636 Dec, Depressive disorder, not elsewhere classified 311 and Generalized anxiety disorder 300.02 [place] [id number] [place] [address] 97379- 8244 Dec, [address] 53497- 1261 Dec, [place] [id number] [place] [address] 24679- 8037 Nov, Depressive disorder, not elsewhere classified 311 and Generalized anxiety disorder 300.02 [place] [id number] [place] [address] 86886- 0041 Nov, Arthritis of both knees 716.[address] 44041- 0240 Nov, PAF (paroxysmal atrial fibrillation) 427.31 ; CAD (coronary artery disease) 414.00 ; Chest pain 786.50 and Chronic kidney disease (CKD) stage G4/A1, severely decreased glomerular filtration rate (GFR) between 15-29 mL/min/1.73 square meter and albuminuria creatinine ratio less than 30 mg/g 585.4 [id number] [place] [address] 75852- 1135 Oct, Coronary atherosclerosis of unspecified type of vessel, [place] or graft 414.00 ; Chronic kidney disease, 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.4 ; Hypertension 401.9 and Edema 782.3 [place] [id number] [place] [address] 35250- 8369 Oct, Depressive disorder, not elsewhere classified 311 and Generalized anxiety disorder 300.[id number] [place] [address] 07693- 3572 Oct, Depressive disorder, not elsewhere classified 311 and Generalized anxiety disorder 300.02 [facility] [id number] [place] [address] 45594- 9228 Oct, [facility] [id number] [place] [address] 98631- 8153 Oct, [facility] [address] 22945- 7454 Sep, [facility] [address] 23043- 1173 Sep, Chronic kidney disease, 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.4 [place] [id number] [place] [address] 48508- 6659 Sep, [place] [address] 01690- 9920 Sep, Coronary atherosclerosis of unspecified type of vessel, [place] or graft 414.00 ; Hypertension 401.9 ; Edema 782.3 and Hypothyroidism 244.9 [place] [id number] [place] [address] 93057- 1423 Sep, Coronary atherosclerosis of unspecified type of vessel, [place] or graft 414.00 ; Hypertension 401.9 ; Fibromyalgia 729.1 ; Edema 782.3 ; Hypothyroidism 244.9 and Anemia 285.9 [place] [id number] [place] [address] 69646- 1469 Sep, Anxiety disorder, unspecified 300.00 and Depressive disorder , not elsewhere classified 311 [facility] [id number] [place] [address] 33990- 8710 Sep, [facility] [id number] [place] [address] 92212- 9695 August, Generalized anxiety disorder 300.02 [facility] [id number] [place] [address] 00601- 6456 August, Closed fracture of lateral malleolus 824.2 [facility] [place] [facility] [address] [id number] [place] [address]- 7904 14 Jul, 2014 [facility] [place] [facility] [address] [id number], [place] [address]- 6553 Jul, [facility] [place] [facility] [address] [facility] [id number], [place] [address]- 5568 Jun, [facility] [place] [facility] [address] [id number], [place] [address]- 9291 Jun, [facility] [place] [facility] [address] [facility] [id number], [place] [address]- 0175 Jun, [facility] [place] [facility] [address] [facility] [id number], [place] [address]- 3881 Jun, [facility] [place] [facility] [address] [id number], [place] [address]- 3978 Jun, [facility] [place] [facility] [address] [facility] [id number], [place] [address]- 8961 Jun, [facility] [place] [facility] [address] [id number], [place] [address]- 2676 May, [facility] [place] [facility] [address] [facility] [id number], [place] [address]- 9674 May, [facility] [place] [facility] [address] [id number], [place] [address]- 3830 May, [facility] [place] [facility] [address] [facility] [id number], [place] [address]- 0697 May, [facility] [place] [facility] [address] [facility] [id number], [place] [address]- 4805 16 May, 2014 [facility] [place] [facility] [address] [facility] [id number], [place] [address]- 6223 16 May, 2014 [facility] [place] [facility] [address] [id number], [place] [address]- 1191 May, [facility] [place] [facility] [address] [id number] [place] [address]- 0059 13 May, 2014 [facility] [place] [facility] [address] [id number] [place] [address]- 1457 10 May, 2014 [facility] [place] [facility] [address] [id number] [place] 7426 10 May, 2014 [facility] [place] [facility] [address] [id number] [place] [address]- 9122 Apr, [facility] [place] [facility] [address] [id number] [place] [address]- 9766 Apr, [facility] [place] [facility] [address] [id number] [place] [address]- 5504 Mar, [facility] [place] [facility] [address] [id number] [place] [address]- 7670 Mar, [facility] [place] [facility] [address] [id number] [place] [address]- 6596 Mar, [facility] [place] [facility] [address] [id number] [place] [address]- 2183 Mar, [facility] [place] [facility] [address] [id number] [place] [address]- 6981 Mar, [facility] [place] [facility] [address] [id number] [place] [address]- 1467 15 Mar, 2014 [facility] [place] [facility] [address] [id number] [place] [address]- 5274 Mar, [facility] [place] [facility] [address] [id number] [place] [address]- 4012 Feb, [facility] [place] [facility] [address] [id number] [place] [address]- 5574 Feb, [facility] [place] [facility] [address] [id number] [place] [address]- 8469 17 Feb, 2014 [facility] [place] [facility] [address] [id number] [place] [address]- 4696 Jan, [facility] [place] [facility] [address] [id number] [place] [address]- 2149 Jan, [facility] [place] [facility] [address] [id number] [place] [address]- 8780 Jan, [facility] [place] [facility] [address] [id number] [place] [address]- 0730 Jan, [facility] [place] [facility] [address] [id number] [place] [address]- 4827 Jan, [facility] [place] [facility] [address] [id number] [place] [address]- 7089 Jan, [facility] [place] [facility] [address] [id number] [place] [address]- 6982 Jan, [facility] [place] [facility] [address] [id number] [place] [address]- 7984 Jan, [facility] [place] [facility] [address] [id number] [place] [address]- 4860 Jan, [facility] [place] [facility] [address] [id number] [place] [address]- 6574 Jan, [facility] [place] [facility] [address] [id number] [place] [address]- 7116 Nov, [facility] [place] [facility] [address] [id number] [place] [address]- 6554 Nov, [facility] [place] [facility] [address] [id number] [place] [address]- 4953 Nov, [facility] [place] [facility] [address] [id number] [place] [address]- 7022 Oct, [facility] [place] [facility] [address] [id number] [place] [address]- 5996 Oct, [facility] [place] [facility] [address] [id number] [place] [address]- 3518 Oct, [facility] [place] [facility] [address] [id number] [place] [address]- 7552 18 Oct, 2013 [facility] [place] [facility] [address] [id number] [place] [address]- 7430 Oct, [facility] [place] [facility] [address] [id number] [place] [address]- 6463 Oct, [facility] [place] [facility] [address] [id number] [place] [address]- 2508 Oct, [facility] [place] [facility] [address] [id number] [place] [address]- 6283 Oct, [facility] [place] [facility] [address] [id number] [place] [address]- 7660 Oct, [facility] [place] [facility] [address] [id number] [place] [address]- 3437 Sep, [facility] [place] [facility] [address] [id number] [place] [address]- 1189 Sep, [facility] [place] [facility] [address] [id number] [place] [address]- 3256 Sep, [facility] [place] [facility] [address] [id number] [place] [address]- 2071 Sep, [facility] [place] [facility] [address] [id number] [place] [address]- 6657 Sep, [facility] [place] [facility] [address] [id number] [place] [address]- 3846 Sep, [facility] [place] [facility] [address] [id number] [place] [address]- 0102 Sep, [facility] [place] [facility] [address] [id number] [place] [address]- 0533 Sep, [facility] [place] [facility] [address] [id number] [place] [address]- 5178 Sep, [facility] [place] [facility] [address] [id number] [place] [address]- 5089 August, [facility] [place] [facility] [address] [id number] [place] [address]- 4566 August, [facility] [place] [facility] [address] [id number] [place] [address]- 0865 August, [facility] [place] [facility] [address] [id number] [place] [address]- 2107 August, [facility] [place] [facility] [address] [id number] [place] [address]- 3383 August, [facility] [place] [facility] [address] [id number] [place] [address]- 1790 August, [facility] [place] [facility] [address] [id number] [place] [address]- 2029 Jul, [facility] [place] [facility] [address] [id number] [place] [address]- 7088 Jul, [facility] [place] [facility] [address] [id number] [place] [address]- 9993 Jul, [facility] [place] [facility] [address] [id number] [place] [address]- 4040 Jul, [facility] [place] [facility] [address] [id number] [place] [address]- 9052 Jul, [facility] [place] [facility] [address] [id number] [place] [address]- 4775 Jul, [facility] [place] [facility] [address] [id number] [place] [address]- 4145 Jun, [facility] [place] [facility] [address] [id number] [place] [address]- 9186 Jun, [facility] [place] [facility] [address] [id number] [place] [address]- 0436 May, [facility] [place] [facility] [address] [id number] [place] [address]- 4962 May, [facility] [place] [facility] [address] [id number] [place] [address]- 2857 10 May, 2013 [facility] [address] [id number] [place] [address]- 9260 10 May, 2013 [facility] [place] [facility] [address] [id number] [place] [address]- 6484 Apr, [facility] [address] [id number] [place] [address]- 3484 Apr, [facility] [place] [facility] [address] [id number] [place] [address]- 7675 18 Mar, 2013 [facility] [address] [id number] [place] [address]- 7502 18 Mar, 2013 [facility] [place] [facility] [address] [id number] [place] [address]- 3762 17 Mar, 2013 [facility] [address] [id number] [place] [address]- 7753 17 Mar, 2013 [facility] [address] [id number] [place] [address]- 8312 05 Mar, 2013 [facility] [place] [facility] [address] [id number] [place] [address]- 7296 05 Mar, 2013 [facility] [address] [facility] [id number] [place] [address]- 7624 Feb, [facility] [place] [facility] [address] [id number] [place] [address]- 0267 Feb, [facility] [place] [facility] [address] [id number] [place] [address]- 2653 14 Feb, 2013 [facility] [place] [facility] [address] [id number] [place] [address]- 9681 14 Feb, 2013 [facility] [place] [facility] [address] [id number] [place] [address]- 1932 05 Feb, 2013 [facility] [place] [facility] [address] [id number] [place] 3057 Feb, [facility] [place] [facility] [address] [id number] [place] [address]- 2456 Jan, [facility] [place] [facility] [address] [id number] [place] [address]- 5689 Jan, [facility] [place] [facility] [address] [id number] [place] [address]- 2647 Jan, [facility] [place] [facility] [address] [id number] [place] [address]- 3173 Jan, [facility] [place] [facility] [address] [id number] [place] [address]- 1662 Jan, [facility] [place] [facility] [address] [id number] [place] [address]- 2708 Jan, [facility] [place] [facility] [address] [id number] [place] [address]- 8587 Dec, [facility] [place] [facility] [address] [id number] [place] [address]- 3783 Dec, [facility] [place] [facility] [address] [id number] [place] [address]- 2439 Nov, [facility] [place] [facility] [address] [id number] [place] [address]- 3261 Nov, [facility] [place] [facility] [address] [id number] [place] [address]- 4987 Oct, [facility] [place] [facility] [address] [id number] [place] [address]- 7170 Oct, [facility] [place] [facility] [address] [id number] [place] [address]- 7302 Oct, [facility] [place] [facility] [address] [id number] [place] [address]- 0230 Oct, [facility] [place] [facility] [address] [id number] [place] [address]- 2548 Oct, [facility] [place] [facility] [address] [id number] [place] [address]- 9320 Oct, [facility] [address] [id number] [place] [address]- 8862 Sep, [facility] [place] [facility] [address] [id number] [place] [address]- 5998 Sep, [facility] [address] [id number] [place] [address]- 4391 Sep, [facility] [place] [facility] [address] [id number] [place] [address]- 6456 Sep, [facility] [address] [id number] [place] [address]- 7490 August, [facility] [address] [id number] [place] [address]- 9030 August, [facility] [address] [id number] [place] [address]- 6078 August, [facility] [address] [id number] [place] [address]- 7157 August, [facility] [address] [id number] [place] [address]- 3896 August, [facility] [address] [id number] [place] [address]- 4014 Jul, [facility] [place] [facility] [address] [id number] [place] [address]- 7008 Jul, [facility] [place] [facility] [address] [id number] [place] [address]- 9905 15 Jul, 2012 [facility] [place] [facility] [address] [id number] [place] [address]- 9466 Jul, [facility] [place] [facility] [address] [id number] [place] [address]- 9608 Jul, [facility] [place] [facility] [address] [id number] [place] [address]- 1064 Jul, [facility] [place] [facility] [address] [id number] [place] [address]- 1576 08 Jul, 2012 [facility] [address] [id number] [place] [address] Jul, [facility] [address] [id number] [place] [address] Jul, [facility] [address] [id number] [place] [address] Jul, [facility] [address] [id number] [place] [id number] Jun, [facility] [address] [id number] [place] [address] Jun, [facility] [address] [id number] [place] [address] Jun, [facility] [address] [id number] [place] [address] Jun, [facility] [address] [id number] [place] [address] Jun, [facility] [address] [id number] [place] [address] May, [facility] [address] [id number] [place] [address] May, [facility] [address] [id number] [place] [address] May, [facility] [address] [id number] [place] [address] Apr, [facility] [address] [id number] [place] [address] Apr, [facility] [address] [id number] [place] [address] Apr, [facility] [address] [id number] [place] [address] Apr, [facility] [address] [id number] [place] [address] Apr, [facility] [place] [facility] [address] [id number] [place] [address] Apr, [facility] [place] [facility] [address] [id number] [place] [address] Mar, [facility] [place] [facility] [address] [id number] [place] [address] Mar, [facility] [place] [facility] [address] [id number] [place] [address] Mar, [facility] [place] [facility] [address] [id number] [place] [address] Mar, [facility] [place] [facility] [address] [id number] [place] [address] Feb, [facility] [place] [facility] [address] [id number] [place] [address] Feb, [facility] [place] [facility] [address] [id number] [place] [address] Feb, [facility] [place] [facility] [address] [id number] [address] Feb, [facility] [place] [facility] [address] [facility] [id number], [place] [address] Feb, [facility] [place] [facility] [address] [id number], [place] [address] Feb, [facility] [place] [facility] [address] [id number] [place] [address] Feb, [facility] [place] [facility] [address] [id number], [place] [address] Feb, [facility] [place] [facility] [address] [facility] [id number], [place] [address] Feb, [facility] [place] [facility] [address] [id number], [place] [address] Feb, [facility] [place] [facility] [address] [id number] [place] [address] Feb, [facility] [place] [facility] [address] [id number] [place] [address] Feb, [facility] [place] [facility] [address] [facility] [id number] [place] [address] Feb, [facility] [place] [facility] [address] [id number] [place] [address] Feb, [facility] [place] [facility] [address] [facility] [id number] [place] [address] Feb, [facility] [place] [facility] [address] [facility] [id number] [place] [address] Feb, [facility] [place] [facility] [address] [facility] [id number], [place] [address] Jan, [facility] [place] [facility] [address] [facility] [id number], [place] [address] Jan, [facility] [place] [facility] [address] [facility] [id number], [place] [address] Jan, [facility] [place] [facility] [address] [facility] [id number], [place] [address] Jan, [facility] [place] [facility] [address] [facility] [id number], [place] [address] 30 Jan, 2012 [facility] [place] [facility] [address] [facility] [id number], [place] [address] Jan, [facility] [place] [facility] [address] [facility] [id number], [place] [address] Jan, [facility] [place] [facility] [address] [facility] [id number], [place] [address] Jan, [facility] [place] [facility] [address] [facility] [id number], [place] [address] Jan, [facility] [place] [facility] [address] [id number] [place] [address] 15 Jan, 2012 [facility] [place] [facility] [address] [id number] [place] [address] 15 Jan, 2012 [facility] [place] [facility] [address] [id number] [place] [address]- [address] Jan, [facility] [place] [facility] [address] [id number] [place] [address] 26 Dec, 2011 [facility] [place] [facility] [address] [id number] [place] [address] 2546 26 Sep, 2011 [facility] [place] [facility] [address] [id number] [place] [address] 24 Dec, 2011 [facility] [place] [facility] [address] [id number] [place] [address] 23 Dec, 2011 [facility] [place] [facility] [address] [id number] [place] [address] 22 Dec, 2011 [facility] [place] [facility] [address] [id number] [place] [address] 2542 21 Dec, 2011 [facility] [place] [facility] [address] [id number] [place] [address] 2540 20 Dec, 2011 [facility] [place] [facility] [address] [id number] [place] [address] 2548 20 Dec, 2011 [facility] [place] [facility] [address] [id number] [place] [address] 2546 07 Sep, 2011 [facility] [place] [facility] [address] [id number] [place] [address] 2546 06 Sep, 2011 [facility] [place] [facility] [address] [id number] [place] [address] 2546 06 Sep, 2011 [facility] [place] [facility] [address] [id number] [place] [address] 2546 05 Sep, 2011 [facility] [place] [facility] [address] [id number] [place] [address] Nov, [facility] [place] [facility] [address] [id number] [place] [address]246 Nov, [facility] [place] [facility] [address] [id number] [place] [address] 4[address] Nov, [facility] [place] [facility] [address] [id number] [place] [address] 234[address] Nov, [facility] [place] [facility] [address] [id number] [place] [address] Nov, [facility] [place] [facility] [address] [id number] [place] [address] Nov, [facility] [place] [facility] [address] [id number] [place] [address] Nov, [facility] [place] [facility] [address] [id number] [place] [address] Nov, [facility] [place] [facility] [address] [id number] [place] [address] Oct, [facility] [place] [facility] [address] [id number] [place] [address] Oct, [facility] [place] [facility] [address] [id number] [place] [address] 2537 Oct, [facility] [place] [facility] [address] [id number] [place] [address] 54[address] Oct, [facility] [place] [facility] [address] [id number] [place] [address] 66[address] Oct, [facility] [place] [facility] [address] [id number] [place] [address] 2481 Oct, [facility] [place] [facility] [address] [id number] [place] [address] 6360 Oct, [facility] [place] [facility] [address] [id number] [place] [address] 39[address] Sep, [facility] [place] [facility] [address] [id number] [place] [address] 1818 Sep, [facility] [address] [id number] [place] [address] 9266 August, [facility] [place] [facility] [address] [id number] [place] [address] 5973 August, [facility] [address] [id number] [place] [address] 98[address] August, [facility] [place] [facility] [address] [id number] [place] [address]778 August, [facility] [address] [id number] [place] [address] 73[address] Jul, [facility] [place] [facility] [address] [id number] [place] [address] 1040 Jul, [facility] [address] [id number] [place] [address] 2422 Jul, [facility] [address] [id number] [place] [address] 58[address] Jul, [facility] [place] [facility] [address] [id number] [place] [address] 8466 Jul, [facility] [address] [id number] [place] [address] 3741 Jul, [facility] [place] [facility] [address] [id number] [place] [address] 4427 Jul, [facility] [place] [facility] [address] [id number] [place] [address] 9010 Jul, [facility] [place] [facility] [address] [id number] [place] [address] 6[address] Jul, [facility] [place] [facility] [address] [id number] [place] [address] Jun, [facility] [place] [facility] [address] [id number] [place] [address] 2356 Jun, [facility] [place] [facility] [address] [id number] [place] [address] 9400 15 Jun, 2011 [facility] [place] [facility] [address] [id number] [place] [address]- 2776 14 Jun, 2011 [facility] [place] [facility] [address] [id number] [place] [address] 4662 12 Jun, 2011 [facility] [place] [facility] [address] [id number] [place] [address]- 8061 09 Jun, 2011 [facility] [place] [facility] [address] [id number] [place] [address]- 8228 09 Jun, 2011 [facility] [place] [facility] [address] [id number] [place] [address] 5636 25 May, 2011 [facility] [place] [facility] [address] [id number] [place] [address] 1606 24 May, 2011 [facility] [place] [facility] [address] [id number] [place] [address]- 9147 16 May, 2011 [facility] [place] [facility] [address] [id number] [place] [address] 5457 May, [facility] [place] [facility] [address] [id number] [place] [address]- 0256 May, [facility] [place] [facility] [address] [id number] [place] [address] 5410 Apr, [facility] [place] [facility] [address] [id number] [place] [address] 1779 Apr, [facility] [place] [facility] [address] [id number] [place] [address]- 4077 Apr, [facility] [place] [facility] [address] [id number] [place] [address]- 8808 Apr, [facility] [place] [facility] [address] [id number] [place] [address]- 9647 05 Apr, 2011 [facility] [place] [facility] [address] [id number], [place] [address] Mar, [facility] [place] [facility] [address] [id number] [place] [address]- 5567 Mar, [facility] [place] [facility] [address] [id number] [place] [address] Mar, [facility] [place] [facility] [address] [id number] [place] [address] Mar, [facility] [place] [facility] [address] [id number] [place] [address]- 6552 Mar, [facility] [place] [facility] [address] [id number] [place] [address]- 8984 Mar, [facility] [place] [facility] [address] [id number] [place] [address]- 0653 Mar, [facility] [place] [facility] [address] [facility] [id number], [place] [address] Feb, [facility] [place] [facility] [address] [id number] [place] [address]- 1256 Feb, [facility] [place] [facility] [address] [facility] [id number] [place] [address]- 2429 Feb, [facility] [place] [facility] [address] [facility] [id number] [place] [address]- 1212 Feb, [facility] [place] [facility] [address] [id number], [place] [address] 6[address] Jan, [facility] [place] [facility] [address] [id number], [place] [address]- 9867 Jan, [facility] [place] [facility] [address] [id number] [place] [address]- 9305 Jan, [facility] [place] [facility] [address] [facility] [id number] [place] [address]- 8296 Jan, [facility] [place] [facility] [address] [facility] [id number], [place] [address]- 5168 Nov, [facility] [place] [facility] [id number], [place] [address] Mar, [facility] [id number] [address]66 Mar, [facility] [id number] [address] 8948 Mar, [facility] [id number] [address] Mar, [facility] [address] Mar, [facility] [address] [address] Mar, [facility] [address] [address]01 Feb, [facility] [address] [address] 7301 Feb, [facility] [address] [address]101 Jan, [facility] [id number], [place] [address]- [address] Jan, 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
--- OUTSIDE RECORDS SUMMARY | 2018-05-29 08:10 | XMS REPORT ---
Author Author ISABEL MAE [facility] Address [address] [place] [address] Care Team Providers Care Personnel Generalist Manager Name Role Phone ISABEL MAE Unavailable PROBLEMS Type Condition ICD9-CM Code LDB38-PW Code Onset Dates Condition Status SNOMED Code Problem Long-term use of high-risk medication Z79.899 Active 580643802 Problem Abnormal chest CT R93.8 Active 372521307 Problem Low back pain M54.5 Active 251891140 Problem Generalized anxiety disorder F41.1 Active 00390113 Problem Dysthymic disorder F34.1 Active 04104659 Problem Coronary artery disease involving hughes coronary artery of hughes heart, angina presence unspecified I25.10 Active 5852846160826 Problem Depressed F32.9 Active 80440160 Problem Fibromyalgia M79.7 Active 866796770 Problem Hypothyroid E03.9 Active 76696466 Problem Essential (primary) hypertension I10 Active 96190086 Problem Insomnia G47.00 Active 436997736 Problem Vitamin D deficiency E55.9 Active 87197139 Problem Anemia in chronic kidney disease D63.1 Active 470330132117803 Problem Chronic kidney disease, unspecified N18.9 Active 842364162 Problem Body mass index (BMI) of 40.0-44.9 in adult Z68.41 Active 219039521 Problem Stage 3 chronic kidney disease N18.3 Active 098627282 Problem Restless leg G25.81 Active 96232128 Problem Palpitations R00.2 Active 34677841 Problem Asthma J45.909 Active 973262742 Problem Primary osteoarthritis of left knee M17.12 Active 495080202 Problem Bipolar disorder, current episode manic without psychotic features F31.10 Active 222475008 Problem Mood disorder F39 Active 55596272 Problem Degenerative tear of medial meniscus of left knee M23.204 Active 211312825 Problem History of colon polyps Z86.010 Active 676462815 Problem Asthma with acute exacerbation in adult J45.901 Active 247085511 Problem Chronic kidney disease, stage 4 (severe) N18.4 Active 316451706 Problem Functional 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 Active 24925549 Problem Hypokalemia E87.6 Active 21474837 Problem Mixed stress and urge urinary incontinence N39.46 Active 974127061 Problem History of anemia Z86.2 Active 500709988 Problem Other seasonal allergic rhinitis J30.2 Active 256157346 ALLERGIES No Information ENCOUNTERS Encounter Location Date Diagnosis [place] [id number] [place] [address] 28031- 1128 August, [place] [id number] [place] [address] 10107- 0535 Jun, Orthostatic hypotension I95.1 ; Chronic kidney disease, stage 4 (severe) N18.4 ; Chest wall discomfort R07.89 and Body mass index (BMI) of 40.0-44.9 in adult Z68.41 [place] [id number] [place] [address] 33847- 2376 Jun, [place] [id number] [place] [address] 36862- 2556 Jun, Orthostatic hypotension I95.1 [place] [id number] [place] [address] 50922- 6426 Jun, [facility] [id number] [place] [address] 28466 -2642 Jun, Orthostatic hypotension I95.1 ; Dysuria R30.0 and Acute cystitis without hematuria N30.00 [place] [id number] [place] [address] 65399- 2154 Jun, [place] [address] 28774- 4008 Jun, Chronic kidney disease, stage 4 (severe) N18.4 [place] [id number] [place] [address] 98475- 5954 Jun, Fibromyalgia M79.7 [place] [address] [address] 4960 Jun, [facility] [id number] [place] [address] 16661- 4521 Jun, [facility] [id number] [place] [address] 88710- [address] May, [address] R93.8 and Stage 3 chronic kidney disease N18.3 [facility] [id number] [place] [address] 56333- 6148 May, Chronic kidney disease, stage 4 (severe) N18.4 [facility] [id number] [place] [address] 51114- 9580 May, Chronic kidney disease, stage 4 (severe) N18.4 [facility] [id number] [place] [address] 39867- 8785 May, [address] R93.8 [facility] [id number] [place] [address] 19649- 2838 May, [facility] [id number] [place] [address] 78026- 4365 May, [facility] [id number] [place] [address] 56891- 7692 May, Generalized anxiety disorder F41.1 and Major depressive disorder, recurrent episode with anxious distress F33.9 [facility] [id number] [place] [address] 00355- 1737 May, Mood disorder F39 [facility] [id number] [place] [address] 32790- 7768 Apr, [facility] [id number] [place] [address] 51551- 3149 Apr, Infected skin lesion L08.9 and Muscle strain of right shoulder region, initial encounter S46.911A [place] [id number] [place] [address] 48179- 7411 Apr, Generalized anxiety disorder F41.1 and Major depressive disorder, recurrent episode with anxious distress F33.9 [place] [id number] [place] [address] 91305- 7451 Apr, [place] [id number] [place] [address] 12468- 9300 Apr, Recent urinary tract infection Z87.440 and Hypothyroid E03.9 [place] [id number] [place] [address] 97689- 4542 Apr, Generalized anxiety disorder F41.1 and Major depressive disorder, recurrent episode with anxious distress F33.9 [place] [id number] [place] [address] 08745- 0151 Apr, Recent urinary tract infection Z87.440 [place] [id number] [place] [address] 75484- 5592 Mar, [facility] [place] [id number] [place] [address] 81033 -6540 Mar, Dysuria R30.0 ; Acute cystitis without hematuria N30.00 and BMI 40.0-44.9, adult Z68.41 [place] [address] [place] [address] 10885- 2735 Mar, [place] [id number] [place] [address] 24758- 8652 Mar, [place] [id number] [place] [address] 93180- 5610 Mar, Generalized anxiety disorder F41.1 and Major depressive disorder, recurrent episode with anxious distress F33.9 [place] [id number] [place] [address] 49614- 1889 Feb, Conjunctivitis, bacterial H10.9 [place] [id number] [place] [address] 48460- 1092 Feb, [facility] [id number] [place] [address] 01957 -7452 Feb, Conjunctivitis, bacterial H10.9 [place] [address] 02943- 4151 Feb, [facility] [id number] [place] [address] 02372 -4243 Feb, Dysuria R30.0 ; Acute cystitis N30.00 and BMI 40.0-44.9, adult Z68.41 [place] [address] 60332- 5923 Feb, [place] [address] 07936- 3306 Feb, Generalized anxiety disorder F41.1 and Major depressive disorder, recurrent episode with anxious distress F33.9 [place] [address] 98886- 6848 Feb, Mood disorder F39 and BMI 40.0-44.9, adult Z68.41 [place] [id number] [place] [address] 61524- 6108 Jan, [place] [id number] [place] [address] 49220- 9580 Jan, [place] [id number] [place] [address] 69521- 8952 Jan, Hypothyroid E03.9 [place] [id number] [place] [address] 31197- 9931 Jan, [place] [id number] [place] [address] 06609- 0072 04 Jan, 2017 Chronic kidney disease, unspecified N18.9 ; Hypokalemia E87.6 ; Essential (primary) hypertension I10 ; Fibromyalgia M79.7 ; Coronary artery disease involving hughes coronary artery of hughes heart, angina presence unspecified I25.10 ; Hypothyroid E03.9 and Encounter for immunization Z23 [place] [address] [address]- 8234 04 Jan, 2017 Hypothyroid E03.9 [facility] [id number] [place] [address] 59645- 5993 02 Jan, 2017 [facility] [id number] [place] [address] 74785- 6552 28 Dec, 2016 Vitamin D deficiency E55.9 [facility] [id number] [place] [address] 25252- 2492 28 Dec, 2016 Primary osteoarthritis of left knee M17.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 [facility] [id number] [place] [address] 60324- 5317 19 Dec, 2016 Fibromyalgia M79.7 [facility] [id number] [place] [address] 81639- 3395 18 Dec, 2016 Mood disorder F39 [facility] [id number] [place] [address] 47783- 8207 13 Dec, 2016 [facility] [id number] [place] [address] 60987- 7831 13 Dec, 2016 Generalized anxiety disorder F41.1 and Major depressive disorder, recurrent episode with anxious distress F33.9 [facility] [address] [address]- 5403 11 Dec, 2016 [facility] [id number] [place] [address] 45164- 1417 08 Dec, 2016 Streptococcal meningitis G00.2 [facility] [address] [address]- 8838 07 Dec, 2016 Streptococcal meningitis G00.2 [facility] [address] [address]- 8946 07 Dec, 2016 [facility] [address] [address]- 8280 06 Dec, 2016 Streptococcal meningitis G00.2 [facility] [address] [address]- 5245 Dec, [facility] [id number] [place] [address] 02847- 9181 Dec, Major depressive disorder, recurrent episode with anxious distress F33.9 [facility] [id number] [place] [address] 03518- 6187 Nov, Fever, unspecified fever cause R50.9 [facility] [id number] [place] [address] 34818- 9494 Nov, [place] [id number] [place] [address] 42430- 8096 Nov, Hypothyroid E03.9 [facility] [id number] [place] [address] 73263- 0236 Nov, Generalized anxiety disorder F41.1 and Major depressive disorder, recurrent episode with anxious distress F33.9 [facility] [id number] [place] [address] 00921- 3836 Nov, [facility] [id number] [place] [address] [id number] Oct, Dental examination Z01.20 [facility] [id number] [place] [address] 14630- 6790 Oct, Generalized anxiety disorder F41.1 and Major depressive disorder, recurrent episode with anxious distress F33.9 [facility] [id number] [place] [address] 32465- 1057 Oct, Chronic kidney disease, stage 4 (severe) N18.4 [facility] [id number] [place] [address] 97150- 4455 Oct, [facility] [id number] [place] [address] 42869- 2731 Oct, Fibromyalgia M79.7 [facility] [id number] [place] [address] 75064- 0089 Oct, [place] [id number] [address]- 6494 Oct, Generalized anxiety disorder F41.1 ; Major depressive disorder, recurrent episode with anxious distress F33.9 and Bipolar disorder, current episode manic without psychotic features F31.10 [place] [address] [address]- 2646 Sep, [place] [id number] [place] [address] 35297- 8239 Sep, [place] [address] [address]- 5556 Sep, Vitamin D deficiency E55.9 [place] [address] [address]- 7985 Sep, Vitamin D deficiency E55.9 [place] [id number] [place] [address] 81409- 6810 Sep, [place] [address] [address]- 5574 Sep, Chronic kidney disease, stage 4 (severe) N18.4 ; Hypothyroid E03.9 ; Restless leg G25.81 ; Fibromyalgia M79.7 ; Essential ( primary) hypertension I10 ; Vitamin D deficiency E55.9 ; Dyspepsia R10.13 ; Anemia in chronic kidney disease D63.1 ; Chronic kidney disease, unspecified N18.9 ; Coronary artery disease involving hughes coronary artery of hughes heart , angina presence unspecified I25.10 ; Screening breast examination Z12.39 and Low back pain M54.5 [place] [id number] [place] [address] 41461- 9303 August, Generalized anxiety disorder F41.1 and Major depressive disorder, recurrent episode with anxious distress F33.9 [place] [address] [address]- 0839 August, Generalized anxiety disorder F41.1 and Major depressive disorder, recurrent episode with anxious distress F33.9 [place] [address] [address]- 5364 August, Fibromyalgia M79.7 [facility] [id number] [place] [address] 48777- 1560 Jul, Generalized anxiety disorder F41.1 and Major depressive disorder, recurrent episode with anxious distress F33.9 [place] [id number] [place] [address] 16842- 0325 Jul, Fibromyalgia M79.7 [place] [id number] [place] [address] 29967- 3593 Jul, Generalized anxiety disorder F41.1 [place] [id number] [place] [address] 82009- 8690 May, [place] [id number] [place] [address] 63149- 2873 May, Hypothyroid E03.9 [place] [id number] [place] [address] 27852- 4776 May, Chronic kidney disease, stage 4 (severe) N18.4 ; Hypothyroid E03.9 ; Restless leg G25.81 ; Fibromyalgia M79.7 ; Essential ( primary) hypertension I10 ; Vitamin D deficiency E55.9 ; Dyspepsia R10.13 ; Acute non-recurrent maxillary sinusitis J01.00 ; Anemia in chronic kidney disease D63.1 ; Chronic kidney disease, unspecified N18.9 and Coronary artery disease involving hughes coronary artery of hughes heart, angina presence unspecified I25.10 [place] [address] [address]- 0579 May, Vitamin D deficiency, unspecified E55.9 [place] [id number] [place] [address] 56022- 2097 May, Generalized anxiety disorder F41.1 and Major depressive disorder, recurrent episode with anxious distress F33.9 [place] [id number] [place] [address] 39845- 9015 Apr, Pain in right knee M25.561 and Pain in left knee M25.562 [facility] [address] [place] [address] 64069- 3826 Apr, [facility] [id number] [place] [address] 02771- 3988 Apr, [facility] [id number] [place] [address] 43225- 3050 Apr, [facility] [id number] [place] [address] 04045- 9537 Mar, Generalized anxiety disorder F41.1 and Major depressive disorder, recurrent episode with anxious distress F33.9 [place] [id number] [place] [address] 20895- 4093 Mar, Generalized anxiety disorder F41.1 and Major depressive disorder, recurrent episode with anxious distress F33.9 [place] [id number] [place] [address] 30034- 5098 Mar, [facility] [id number] [place] [address] 51865- 1559 Mar, [facility] [id number] [place] [address] 44909- 2182 Mar, [place] [id number] [place] [address] 65279- 5299 Mar, Asthma J45.909 and Fibromyalgia M79.7 [facility] [address] [place] [address] 92808- 1667 Mar, Chronic kidney disease, stage 4 (severe) N18.4 ; Vitamin D deficiency E55.9 and Essential (primary) hypertension I10 [facility] [address] [address]- 1533 Feb, [place] [id number] [place] [address] 48820- 6258 08 Nov, 2016 Dysuria R30.0 ; Mixed stress and urge urinary incontinence N39.46 ; Fibromyalgia M79.7 and Chronic kidney disease, stage IV (severe) N18.4 [facility] [id number] [place] [address] 47377- 0836 Feb, Chronic kidney disease, stage 4 (severe) N18.4 [facility] [id number] [place] [address] 92513- 8506 Feb, Chronic kidney disease, stage 4 (severe) N18.4 [facility] [id number] [place] [address] 50570- 5026 Feb, [facility] [address] 56535- 9703 Feb, Vitamin D deficiency, unspecified E55.9 [facility] [id number] [place] [address] 32548- 3534 Jan, [facility] [id number] [place] [address] 55031- 4013 Jan, [facility] [id number] [place] [address] 20714- 5817 30 Dec, 2015 [facility] [id number] [place] [address] 94052- 2116 Dec, Chronic kidney disease, stage 4 (severe) N18.4 [facility] [id number] [place] [address] 20590 2543 Dec, Dysthymic disorder F34.1 and Generalized anxiety disorder F41.1 [facility] [id number] [place] [address] 34462 2546 27 Dec, 2015 [facility] [id number] [place] [address] 45944 2546 Dec, [facility] [id number] [place] [address] 81548- 2542 08 Dec, 2015 Dysthymic disorder F34.1 and Generalized anxiety disorder F41.1 [place] [address] 66803- 6618 08 Dec, 2015 Dysuria R30.0 ; Chronic kidney disease, stage 4 (severe) N18.4 ; Hypertension I10 ; Dyspepsia R10.13 ; Yeast dermatitis B37.2 ; Palpitations R00.2 ; Hypothyroid E03.9 ; Functional 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 and Other seasonal allergic rhinitis J30.[address] [facility] [address] 32360 -5169 Dec, [facility] [address] 53540 -5344 Nov, Dysuria R30.0 and Stress incontinence N39.3 [place] [address] 12176- 5605 Nov, [place] [address] 34047- 8538 Nov, [place] [address] 50553- 8696 Nov, Osteoarthritis of knees, bilateral M17.0 [place] [address] 22919- 4261 Nov, Dysthymic disorder F34.1 and Generalized anxiety disorder F41.1 [place] [address] 83963- 9082 Nov, [place] [address] 15346- 0991 Nov, [place] [address] 85933- 8691 Nov, Urgency of urination R39.15 [place] [address] 43820- 5773 Nov, [place] [address] 09933- 6140 Nov, Chronic kidney disease, stage 4 (severe) N18.4 [place] [id number] [place] [address] 77684- 6011 Oct, Hypertension I10 ; Coronary artery disease involving hughes coronary artery of hughes heart, angina presence unspecified I25.10 ; Palpitations R00.2 ; Hypothyroid E03.9 ; Right foot pain M79.671 ; Functional 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 and Other seasonal allergic rhinitis J30.2 [place] [address] 24925- 6891 Oct, Dysthymic disorder F34.1 and Generalized anxiety disorder F41.1 [place] [address] 20035- 7790 Sep, [place] [address] 83887- 3743 Sep, [place] [address] 60145- 8567 Sep, [place] [id number] [place] [address] 43312- 8487 Sep, [place] [address] 97153- 7024 Sep, [place] [id number] [place] [address] 68236- 1241 Sep, Dysthymic disorder F34.1 and Generalized anxiety disorder F41.1 [place] [id number] [place] [address] 57924- 9174 16 Sep, 2015 Asthma with acute exacerbation in adult J45.901 ; Dysuria R30.0 ; Chronic kidney disease, stage 4 (severe) N18.4 and History of anemia Z86.2 [facility] [id number] [place] [address] 22894- 1914 Sep, Generalized anxiety disorder F41.1 and Dysthymic disorder F34.1 [place] [address] [place] [address]- 7305 August, Screening breast examination Z12.39 and Acute recurrent maxillary sinusitis J01.01 [place] [address] 86887- 4001 August, Osteoarthritis of knees, bilateral M17.0 [place] [address] 03792- 9376 August, Chronic kidney disease, stage 4 (severe) N18.4 ; Acute non- recurrent maxillary sinusitis J01.00 ; Urinary problem R39.89 ; Bowel habit changes R19.4 ; Functional 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 and History of colon polyps Z86.010 [place] [address] 36308- 7336 Jul, Dysthymic disorder F34.1 and Generalized anxiety disorder F41.1 [place] [address] 16365- 0346 Jul, [place] [address] 84718- 3560 Jul, Dysthymic disorder F34.1 ; Generalized anxiety disorder F41.1 and exterminator use of drug Z79.899 [place] [id number] [place] [address] 63753- 2043 Jul, [place] [id number] [place] [address] 04349- 3185 Jun, [place] [address] 94764- 4599 Jun, [place] [address] 71292- 4245 May, [place] [address] 76787- 1088 May, Dysthymic disorder F34.1 and Generalized anxiety disorder F41.1 [place] [address] [address]- [address]12 Apr, Kidney disease N28.9 [place] [address] [address] [place] [id number] [place] [address] 57359- 4166 Apr, Generalized anxiety disorder F41.1 and Dysthymic disorder F34.1 [place] [address] [place] [id number] [place] [address] 74909- 2858 Apr, Chronic kidney disease, stage 4 (severe) N18.4 [place] [address] 017[address]- 8055 Apr, Generalized anxiety disorder F41.1 ; Major depression, recurrent F33.9 and Sleep disturbance G47.9 [place] [address] 23183- 8629 Mar, Generalized anxiety disorder F41.1 and Dysthymic disorder F34.1 [place] [address] 98248- 6220 Mar, Generalized anxiety disorder F41.1 ; Dysthymic disorder F34.1 and Insomnia G47.00 [place] [address] [address] [place] [id number] [place] [address] 28737- 8727 Mar, [place] [address] [place] [id number] [place] [address] 74245- 1037 Mar, [place] [address] [place] [id number] [place] [address] 83518- 4534 Mar, Osteoarthritis of knees, bilateral M17.0 [place] [address] [address] Mar, Hypertension I10 ; Hypothyroid E03.9 ; Dysthymic disorder F34.1 ; Chronic kidney disease, stage 4 (severe) N18.4 and Nausea & vomiting R11.2 [place] [address] [place] [id number] [place] [address] 91716- 9185 Mar, Generalized anxiety disorder F41.1 ; Dysthymic disorder F34.1 and Insomnia G47.00 [place] [id number] [place] [address] 53309- 6057 Mar, Dehydration E86.0 ; Chronic kidney disease, stage 4 (severe ) N18.4 and Nausea & vomiting R11.[address] [facility] [id number] [place] [address] 54642 -7892 Mar, Gastroenteritis K52.9 [facility] [address] [place] [address] 65246- 5910 Mar, [place] [id number] [place] [address] 30083- 9941 Mar, [place] [id number] [place] [address] 95556- 2017 Feb, Dysthymic disorder F34.1 and Generalized anxiety disorder F41.1 [place] [id number] [place] [address] 91283- 0102 Jan, UTI (urinary tract infection) N39.0 ; Asthma J45.909 ; Coronary artery disease involving hughes coronary artery of hughes heart, angina presence unspecified I25.10 ; Hypertension I10 ; Hypothyroid E03.9 ; Vitamin D deficiency E55.9 ; Insomnia G47.00 ; Palpitations R00.2 ; Depressed F32.9 ; Restless leg G25.81 and Anxiety F41.[id number] [place] [address] 48453- 8943 Jan, Dysthymic disorder F34.1 and Generalized anxiety disorder F41.1 [place] [id number] [place] [address] 22988- 2539 Jan, [place] [id number] [place] [address] 54707- 7786 Dec, [place] [id number] [place] [address] 63119- 6815 Dec, Alkalosis 276.3 ; Chronic kidney disease, 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.4 ; Hyperpotassemia 276.7 ; Secondary hyperparathyroidism, renal 588.81 ; Proteinuria 791.0 ; Unspecified vitamin D deficiency 268.9 ; Anemia in chronic kidney disease 285.21 ; Other and unspecified hyperlipidemia 272.4 ; Hypertension, essential, benign 401.1 and Chronic kidney disease (CKD), stage III (moderate) 585.3 [place] [id number] [place] [address] 50395- 3197 Dec, [address] 46894- 7588 Dec, Depressive disorder, not elsewhere classified 311 and Generalized anxiety disorder 300.[address] 22737- 0021 Dec, [address] 08022- 5593 Dec, [address] 95114- 7861 Nov, Depressive disorder, not elsewhere classified 311 and Generalized anxiety disorder 300.[address] 37782- 5144 Nov, Arthritis of both knees 716.[address] 86974- 7450 Nov, PAF (paroxysmal atrial fibrillation) 427.31 ; CAD (coronary artery disease) 414.00 ; Chest pain 786.50 and Chronic kidney disease (CKD) stage G4/A1, severely decreased glomerular filtration rate (GFR) between 15-29 mL/min/1.73 square meter and albuminuria creatinine ratio less than 30 mg/g 585.[address] 08435- 3259 Oct, Coronary atherosclerosis of unspecified type of vessel, hughes or graft 414.00 ; Chronic kidney disease, 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.4 ; Hypertension 401.9 and Edema 782.[address] 36901- 7423 Oct, Depressive disorder, not elsewhere classified 311 and Generalized anxiety disorder 300.02 [facility] [id number] [place] [address] 30711- 8550 Oct, Depressive disorder, not elsewhere classified 311 and Generalized anxiety disorder 300.02 [facility] [id number] [place] [address] 69908- 7926 Oct, [facility] [address] 77309- 4418 Oct, [facility] [id number] [place] [address] 71360- 7139 Sep, [facility] [id number] [place] [address] 05884- 6886 Sep, Chronic kidney disease, 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.4 [place] [id number] [place] [address] 98721- 7846 Sep, [facility] [id number] [place] [address] 80071- 0601 Sep, Coronary atherosclerosis of unspecified type of vessel, hughes or graft 414.00 ; Hypertension 401.9 ; Edema 782.3 and Hypothyroidism 244.9 [facility] [id number] [place] [address] 59700- 2807 Sep, Coronary atherosclerosis of unspecified type of vessel, hughes or graft 414.00 ; Hypertension 401.9 ; Fibromyalgia 729.1 ; Edema 782.3 ; Hypothyroidism 244.9 and Anemia 285.9 [facility] [id number] [place] [address] 79510- 0653 Sep, Anxiety disorder, unspecified 300.00 and Depressive disorder , not elsewhere classified 311 [facility] [id number] [place] [address] 34029- 4577 Sep, [facility] [id number] [place] [address] 04496- 2430 August, Generalized anxiety disorder 300.02 [facility] [address] [id number] [place] [address]- 2862 14 Aug, 2014 Closed fracture of lateral malleolus 824.2 [facility] [address] [id number] [place] [address]- 6055 14 Jul, 2014 [facility] [address] [id number] [place] [address]- 0458 Jul, [facility] [place] [facility] [address] [id number] [place] [address]- 1774 Jun, [facility] [address] [id number] [place] [address]- 4253 Jun, [facility] [place] [facility] [address] [id number], [place] [address]- 5923 Jun, [facility] [place] [facility] [address] [id number] [place] [address]- 9881 Jun, [facility] [address] [id number], [place] [address]- 8229 Jun, [facility] [place] [facility] [address] [id number] [place] [address]- 4892 Jun, [facility] [address] [facility] [id number][place] [address]- 3265 May, [facility] [place] [facility] [address] [id number], [place] [address]- 7405 May, [facility] [place] [facility] [address] [id number], [place] [address]- 8747 May, [facility] [place] [facility] [address] [id number] [place] [address]- 1766 May, [facility] [place] [facility] [address] [id number], [place] [address]- 9441 16 May, 2014 [facility] [place] [facility] [address] [id number], [place] [address]- 2001 May, [facility] [place] [facility] [address] [id number] [place] [address]- 3496 13 May, 2014 [facility] [place] [facility] [address] [id number] [place] [address]- 3576 13 May, 2014 [facility] [place] [facility] [address] [id number] [place] [address]- 2566 10 May, 2014 [facility] [place] [facility] [address] [id number] [place] [address]- 6546 10 May, 2014 [facility] [place] [facility] [address] [id number] [place] [address]- 8810 Apr, [facility] [place] [facility] [address] [id number] [place] [address]- 2757 Apr, [facility] [place] [facility] [address] [id number] [place] [address]- 9628 Mar, [facility] [place] [facility] [address] [id number] [place] [address]- 2789 Mar, [facility] [place] [facility] [address] [id number] [place] [address]- 3709 Mar, [facility] [place] [facility] [address] [id number] [place] [address]- 8218 Mar, [facility] [place] [facility] [address] [id number] [place] [address]- 3394 15 Mar, 2014 [facility] [place] [facility] [address] [id number] [place] [address]- 2546 Mar, [facility] [place] [facility] [address] [id number] [place] [address]- 2543 Mar, [facility] [place] [facility] [address] [id number] [place] 4334 Feb, [facility] [place] [facility] [address] [id number] [place] [address]- 3184 Feb, [facility] [place] [facility] [address] [id number] [place] [address]- 8187 Feb, [facility] [place] [facility] [address] [id number] [place] [address]- 5928 Jan, [facility] [place] [facility] [address] [id number] [place] [address]- 6565 Jan, [facility] [place] [facility] [address] [id number] [place] [address]- 8783 Jan, [facility] [place] [facility] [address] [id number] [place] [address]- 9688 Jan, [facility] [place] [facility] [address] [id number] [place] [address]- 2246 Jan, [facility] [place] [facility] [address] [id number] [place] [address]- 1248 Jan, [facility] [place] [facility] [address] [id number] [place] [address]- 8753 Jan, [facility] [place] [facility] [address] [id number] [place] [address]- 6068 Jan, [facility] [place] [facility] [address] [id number] [place] [address]- 7118 Jan, [facility] [place] [facility] [address] [id number] [place] [address]- 1086 Jan, [facility] [place] [facility] [address] [id number] [place] [address]- 7645 Nov, [facility] [place] [facility] [address] [id number], [place] [address]- 7661 Nov, [facility] [place] [facility] [address] [id number] [place] [address]- 1567 Nov, [facility] [place] [facility] [address] [id number] [place] [address]- 9093 Oct, [facility] [place] [facility] [address] [id number] [place] [address]- 4033 Oct, [facility] [place] [facility] [address] [id number] [place] [address]- 2807 18 Oct, 2013 [facility] [place] [facility] [address] [id number] [place] [address]- 5768 18 Oct, 2013 [facility] [place] [facility] [address] [id number] [place] [address]- 9038 Oct, [facility] [place] [facility] [address] [id number] [place] [address]- 7328 Oct, [facility] [place] [facility] [address] [id number] [place] [address]- 9258 Oct, [facility] [place] [facility] [address] [id number] [place] [address]- 0898 Oct, [facility] [place] [facility] [address] [id number] [place] [address]- 7341 Oct, [facility] [place] [facility] [address] [id number] [place] [address]- 6308 Sep, [facility] [place] [facility] [address] [id number] [place] [address]- 0040 Sep, [facility] [place] [facility] [address] [id number] [place] [address]- 8232 Sep, [facility] [place] [facility] [address] [id number] [place] [address]- 9645 Sep, [facility] [place] [facility] [address] [id number] [place] [address]- 0617 Sep, [facility] [place] [facility] [address] [id number] [place] [address]- 6928 Sep, [facility] [place] [facility] [address] [id number] [place] [address]- 0257 Sep, [facility] [place] [facility] [address] [id number] [place] [address]- 1215 Sep, [facility] [place] [facility] [address] [id number] [place] [address]- 7616 Sep, [facility] [place] [facility] [address] [id number] [place] [address]- 5865 August, [facility] [place] [facility] [address] [id number] [place] [address]- 4374 August[facility] [place] [facility] [address] [id number] [place] [address]- 8233 August, [facility] [place] [facility] [address] [id number] [place] [address]- 1302 August, [facility] [place] [facility] [address] [id number] [place] [address]- 5123 August, [facility] [place] [facility] [address] [id number] [place] [address]- 9320 August, [facility] [place] [facility] [address] [id number] [place] [address]- 2264 Jul, [facility] [place] [facility] [address] [id number] [place] [address]- 4465 Jul, [facility] [place] [facility] [address] [id number] [place] [address]- 9462 Jul, [facility] [place] [facility] [address] [id number] [place] [address]- 9807 Jul, [facility] [place] [facility] [address] [id number] [place] [address]- 9390 Jul, [facility] [place] [facility] [address] [id number] [place] [address]- 9048 Jul, [facility] [place] [facility] [address] [id number] [place] [address]- 2319 Jun, [facility] [place] [facility] [address] [id number] [place] [address]- 8750 Jun, [facility] [place] [facility] [address] [id number] [place] [address]- 6299 May, [facility] [place] [facility] [address] [id number] [place] [address]- 2552 May, [facility] [address] [id number] [place] [address]- 6023 May, [facility] [place] [facility] [address] [id number] [place] [address]- 8736 May, [facility] [address] [id number] [place] [address]- 2791 Apr, [facility] [place] [facility] [address] [id number] [place] [address]- 6699 Apr, [facility] [address] [id number] [place] [address]- 8273 Mar, [facility] [place] [facility] [address] [id number] [place] [address]- 4151 Mar, [facility] [address] [id number] [place] [address]- 7959 Mar, [facility] [place] [facility] [address] [id number] [place] [address]- 3028 Mar, [facility] [address] [id number] [place] [address]- 1196 Mar, [facility] [place] [facility] [address] [facility] [id number] [place] [address]- 4337 Mar, [facility] [address] [id number] [address]- 6928 Feb, [facility] [place] [facility] [address] [id number][place] [address]- 0016 Feb, [facility] [place] [facility] [address] [id number] [place] [address]- 4259 14 Feb, 2013 [facility] [place] [facility] [address] [id number] [place] [address]- 7169 14 Feb, 2013 [facility] [place] [facility] [address] [facility] [id number] [place] [address]- 6262 05 Feb, 2013 [facility] [place] [facility] [address] [id number] [place] [address]- 2546 Feb, [facility] [place] [facility] [address] [id number] [place] [address]- 8283 Jan, [facility] [place] [facility] [address] [id number] [place] [address]- 2546 Jan, [facility] [place] [facility] [address] [id number] [place] [address]- 8156 Jan, [facility] [place] [facility] [address] [id number] [place] [address]- 0876 Jan, [facility] [place] [facility] [address] [id number] [place] [address]- 6852 Jan, [facility] [place] [facility] [address] [id number] [place] [address]- 7167 Jan, [facility] [place] [facility] [address] [id number] [place] [address]- 7147 Dec, [facility] [place] [facility] [address] [id number] [place] [address]- 9797 Dec, [facility] [place] [facility] [address] [id number] [place] [address]- 4458 Nov, [facility] [place] [facility] [address] [id number] [place] [address]- 0211 Nov, [facility] [place] [facility] [address] [id number] [place] [address]- 2547 Oct, [facility] [place] [facility] [address] [id number] [place] [address]- 2544 Oct, [facility] [place] [facility] [address] [id number] [place] [address]- 2545 Oct, [facility] [place] [facility] [address] [id number] [place] [address]- 2546 Oct, [facility] [place] [facility] [address] [id number] [place] [address]- 1316 Oct, [facility] [address] [id number] [place] [address]- 2284 Oct, [facility] [place] [facility] [address] [id number] [place] [address]- 6491 Sep, [facility] [place] [facility] [address] [id number] [place] [address]- 2179 Sep, [facility] [place] [facility] [address] [id number] [place] [address]- 5877 Sep, [facility] [address] [id number] [place] [address]- 6143 Sep, [facility] [place] [facility] [address] [id number] [place] [address]- 5694 August, [facility] [address] [id number] [place] [address]- 1869 August, [facility] [place] [facility] [address] [id number] [place] [address]- 7776 August, [facility] [place] [facility] [address] [id number] [place] [address]- 2503 August, [facility] [place] [facility] [address] [id number] [place] [address]- 6902 August, [facility] [place] [facility] [address] [id number] [place] [address]- 1165 Jul, [facility] [place] [facility] [address] [id number] [place] [address]- 1303 Jul, [facility] [place] [facility] [address] [id number] [place] [address]- 3481 15 Jul, 2012 [facility] [place] [facility] [address] [id number] [place] [address]- 1176 Jul, [facility] [place] [facility] [address] [id number] [place] [address]- 9015 Jul, [facility] [place] [facility] [address] [id number] [place] [address]- 4416 08 Jul, 2012 [facility] [address] [id number] [place] [address]- 0085 Jul, [facility] [address] [id number] [place] [place] [address]- 3926 Jul, [facility] [address] [facility] [id number] [place] [address] 2546 Jul, [facility] [address] [facility] [id number] [place] [address] 2542 Jul, [facility] [address] [id number] [id number] Jun, [facility] [address] [id number] [place] [address]- 2802 Jun, [facility] [address]005[address] [place] [place] [address]- 4044 Jun, [facility] [address] [id number] [address]- 7381 Jun, [facility] [address] [id number] [place] [address]- 7338 Jun, [facility] [address] [id number] [place] [place] [address]- 0104 May, [facility] [place] [facility] [address] [id number] [place] [address]- 8642 May, [facility] [place] [facility] [address] [id number], [place] [address]- 2546 May, [facility] [place] [facility] [address] [id number] [place] [address]- 0251 Apr, [facility] [place] [facility] [address] [facility] [id number] [place] [address]- 7566 Apr, [facility] [place] [facility] [address] [facility] [id number] [place] [address]- 0653 Apr, [facility] [place] [facility] [address] [id number] [place] [address]- [address] 18 Apr, 2012 [facility] [place] [facility] [address] [id number] [place] [address] Apr, [facility] [place] [facility] [address] [id number] [place] [address] Apr, [facility] [place] [facility] [address] [id number] [place] [address] Mar, [facility] [place] [facility] [address] [id number] [place] [address] Mar, [facility] [place] [facility] [address] [id number] [place] [address] Mar, [facility] [place] [facility] [address] [id number] [place] [address] Mar, [facility] [place] [facility] [address] [id number] [place] [address] Feb, [facility] [place] [facility] [address] [id number] [place] [address] Feb, [facility] [place] [facility] [address] [id number] [place] [address] Feb, [facility] [place] [facility] [address] [id number] [place] [address] Feb, [facility] [place] [facility] [address] [id number] [place] [address] Feb, [facility] [place] [facility] [address] [id number] [place] [address] Feb, [facility] [place] [facility] [address] [id number] [place] [address] Feb, [facility] [place] [facility] [address] [id number] [place] [address] Feb, [facility] [place] [facility] [address] [id number] [place] [address] Feb, [facility] [place] [facility] [address] [id number] [place] [address] Feb, [facility] [place] [facility] [address] [id number] [place] [address] Feb, [facility] [place] [facility] [address] [facility] [id number] [place] [address]- [address] Feb, [facility] [place] [facility] [address] [id number] [place] [address] Feb, [facility] [place] [facility] [address] [id number] [place] [address] Feb, [facility] [place] [facility] [address] [id number] [place] [id number], [place] [address]- [address] Feb, [facility] [place] [facility] [address] [facility] [id number] [place] [address]- [address] Feb, [facility] [place] [facility] [address] [id number], [place] [address] Jan, [facility] [place] [facility] [address] [id number][place] [address] Jan, [facility] [place] [facility] [address] [facility] [id number], [place] [address] 31 Jan, 2012 [facility] [place] [facility] [address] [facility] [id number], [place] [address] 31 Jan, 2012 [facility] [place] [facility] [address] [id number], [place] [address] 30 Jan, 2012 [facility] [place] [facility] [address] [id number], [place] [address] Jan, [facility] [place] [facility] [address] [facility] [id number], [place] [address] Jan, [facility] [place] [facility] [address] [facility] [id number], [place] [address] 16 Jan, 2012 [facility] [place] [facility] [address] [id number] [place] [address] 16 Jan, 2012 [facility] [place] [facility] [address] [id number] [place] [address] 2546 15 Jan, 2012 [facility] [place] [facility] [address] [id number] [place] [address] 2546 15 Jan, 2012 [facility] [place] [facility] [address] [id number] [place] [address] 2546 01 Jan, 2012 [facility] [place] [facility] [address] [id number] [place] [address] 2546 26 Sep, 2011 [facility] [place] [facility] [address] [id number] [place] [address] 2546 26 Sep, 2011 [facility] [place] [facility] [address] [id number] [place] [address] 2546 24 Sep, 2011 [facility] [place] [facility] [address] [id number] [place] [address] 2546 23 Sep, 2011 [facility] [place] [facility] [address] [id number] [place] [address] 2544 22 Sep, 2011 [facility] [place] [facility] [address] [id number] [place] [address] 2546 21 Sep, 2011 [facility] [place] [facility] [address] [id number] [place] [address] 2546 20 Sep, 2011 [facility] [place] [facility] [address] [id number] [place] [address] 2546 20 Sep, 2011 [facility] [place] [facility] [address] [id number], [place] [address] 07 Sep, 2011 [facility] [place] [facility] [address] [id number] [place] [address] 2546 06 Sep, 2011 [facility] [place] [facility] [address] [id number] [place] [address] 2546 06 Sep, 2011 [facility] [place] [facility] [address] [id number] [place] [address] 2546 Dec, [facility] [place] [facility] [address] [id number] [place] [address] Nov, [facility] [place] [facility] [address] [id number] [place] [address] Nov, [facility] [place] [facility] [address] [id number] [place] [address]- [address] Nov, [facility] [place] [facility] [address] [id number] [place] [address]- [address] Nov, [facility] [place] [facility] [address] [id number] [place] [address]- [address] Nov, [facility] [place] [facility] [address] [id number] [place] [address]- [address] Nov, [facility] [place] [facility] [address] [id number] [place] [address]- [address] Nov, [facility] [place] [facility] [address] [id number] [place] [address]- [address] Nov, [facility] [place] [facility] [address] [id number] [place] [address]- [address] Oct, [facility] [place] [facility] [address] [address] [id number] [place] [address] Oct, [facility] [place] [facility] [address] [id number] [place] [address] Oct, [facility] [place] [facility] [address] [id number] [place] [address] Oct, [facility] [place] [facility] [address] [id number] [place] [address] Oct, [facility] [place] [facility] [address] [id number] [place] [address] Oct, [facility] [place] [facility] [address] [id number] [place] [address] Oct, [facility] [place] [facility] [address] [id number] [place] [address] Sep, [facility] [place] [facility] [address] [id number] [place] [address] Sep, [facility] [place] [facility] [address] [id number] [place] [address] August, [facility] [place] [facility] [address] [id number] [place] [address] August, [facility] [place] [facility] [address] [id number] [place] [address] August, [facility] [place] [facility] [address] [id number] [place] [address] August, [facility] [place] [facility] [address] [id number] [place] [address] Jul, [facility] [place] [facility] [address] [id number] [place] [address] Jul, [facility] [place] [facility] [address] [id number] [place] [address] Jul, [facility] [place] [facility] [address] [id number] [place] [address] Jul, [facility] [place] [facility] [address] [id number] [place] [address] Jul, [facility] [place] [facility] [address] [id number] [place] [address] Jul, [facility] [place] [facility] [address] [id number] [place] [address] Jul, [facility] [place] [facility] [address] [id number] [place] [address] Jul, [facility] [place] [facility] [address] [id number] [place] [address] Jul, [facility] [place] [facility] [address] [id number] [place] [address] Jun, [facility] [place] [facility] [address] [id number] [place] [address]698 19 Jun, 2011 [facility] [address] [id number] [place] [address] 15 Jun, 2011 [facility] [place] [facility] [address] [id number] [place] [address] 14 Jun, 2011 [facility] [place] [facility] [address] [id number] [place] [address] 12 Jun, 2011 [facility] [place] [facility] [address] [id number] [place] [address] 09 Jun, 2011 [facility] [place] [facility] [address] [id number] [place] [address] 09 Jun, 2011 [facility] [place] [facility] [address] [id number] [place] [address] 25 May, 2011 [facility] [place] [facility] [address] [id number] [place] [address] 24 May, 2011 [facility] [address] [id number] [place] [address]207 16 May, 2011 [facility] [place] [facility] [address] [id number] [place] [address] 16 May, 2011 [facility] [place] [facility] [address] [facility] [id number] [place] [address] 03 May, 2011 [facility] [place] [facility] [address] [id number] [place] [address] 27 Apr, 2011 [facility] [place] [facility] [address] [id number] [place] [address]47 19 Apr, 2011 [facility] [place] [facility] [address] [id number] [place] [address]26 13 Apr, 2011 [facility] [place] [facility] [address] [id number] [place] [address] 4746 12 Apr, 2011 [facility] [place] [facility] [address] [id number] [place] [address] Apr, [facility] [place] [facility] [address] [id number] [place] [address] Mar, [facility] [place] [facility] [address] [id number] [place] [address] Mar, [facility] [place] [facility] [address] [id number] [place] [address] Mar, [facility] [place] [facility] [address] [id number] [place] [address] Mar, [facility] [place] [facility] [address] [id number] [place] [address] Mar, [facility] [place] [facility] [address] [id number] [place] [address]- [address]55 Mar, [facility] [place] [facility] [address] [id number] [place] [address] Mar, [facility] [place] [facility] [address] [id number], [place] [address] Feb, [facility] [place] [facility] [address] [id number] [place] [address] Feb, [facility] [place] [facility] [address] [id number], [place] [address] Feb, [facility] [place] [facility] [address] [id number], [place] [address] Feb, [facility] [place] [facility] [address] [id number], [place] [address] Jan, [facility] [place] [facility] [address] [id number] [place] [address]- [address]684 Jan, [facility] [place] [facility] [address] [id number], [place] [address] Jan, [facility] [place] [facility] [address] [id number], [place] [address] Jan, [facility] [place] [facility] [id number], [place] [address] Nov, [facility] [id number], [place] [address] Mar, [facility] [id number], [place] [address] Mar, [facility] [id number], [place] [address] Mar, [facility] [id number], [place] [address] Mar, [facility] [id number], [place] [address] Mar, [facility] [id number], [place] [address] Mar, [facility] [id number], [place] [address] Feb, [facility] [id number], [place] [address] Feb, [facility] [id number], [place] [address] Jan, [facility] [id number], [place] [address] Jan, [facility] [id number], [place] [address] Jan, IMMUNIZATIONS No Known Immunizations SOCIAL HISTORY [...] 2020 & 2007 Surgical History Bladder surgery [facility] 03/2016 Hospitalization History Surgeries Only Hospitalization History 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
--- OUTSIDE RECORDS SUMMARY | 2018-05-29 08:11 | XMS REPORT ---
Author Author MAURICIO Gresham Organization [facility] Address [address] [place] [address] Care Team Providers Care Internet Architect Name Role Phone MAURICIO Gresham Unavailable PROBLEMS Type Condition ICD9-CM Code NEB26-IU Code Onset Dates Condition Status SNOMED Code Problem Long-term use of high-risk medication Z79.899 Active 055459572 Problem Abnormal chest CT R93.8 Active 119714134 Problem Low back pain M54.5 Active 739830903 Problem Generalized anxiety disorder F41.1 Active 18839987 Problem Dysthymic disorder F34.1 Active 62227490 Problem Coronary artery disease involving ekwok coronary artery of ekwok heart, angina presence unspecified I25.10 Active 2235704237269 Problem Depressed F32.9 Active 27388951 Problem Fibromyalgia M79.7 Active 336555518 Problem Hypothyroid E03.9 Active 18181725 Problem Essential (primary) hypertension I10 Active 31002279 Problem Insomnia G47.00 Active 791188134 Problem Vitamin D deficiency E55.9 Active 81115092 Problem Anemia in chronic kidney disease D63.1 Active 562865487656755 Problem Chronic kidney disease, unspecified N18.9 Active 689034602 Problem Body mass index (BMI) of 40.0-44.9 in adult Z68.41 Active 125166718 Problem Stage 3 chronic kidney disease N18.3 Active 924988749 Problem Restless leg G25.81 Active 58349693 Problem Palpitations R00.2 Active 83094462 Problem Asthma J45.909 Active 788982769 Problem Primary osteoarthritis of left knee M17.12 Active 731257023 Problem Bipolar disorder, current episode manic without psychotic features F31.10 Active 289399717 Problem Mood disorder F39 Active 70828706 Problem Degenerative tear of medial meniscus of left knee M23.204 Active 904687829 Problem History of colon polyps Z86.010 Active 200179828 Problem Asthma with acute exacerbation in adult J45.901 Active 100385011 Problem Chronic kidney disease, stage 4 (severe) N18.4 Active 955889379 Problem Functional 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 Active 33520981 Problem Hypokalemia E87.6 Active 69418291 Problem Mixed stress and urge urinary incontinence N39.46 Active 271550244 Problem History of anemia Z86.2 Active 054738199 Problem Other seasonal allergic rhinitis J30.2 Active 514487898 ALLERGIES No Known Allergies ENCOUNTERS Encounter Location Date Diagnosis [place] [address] [address] Sep, [place] [address] 28493- 8779 August, Fibromyalgia M79.7 [place] [address] 43587- 2436 August, [place] [address] 20690- 4989 August, [facility] [id number] [place] [address] 72041- 5654 August, Abnormal chest CT R93.8 [place] [address] 31246- 3042 August, Generalized anxiety disorder F41.1 and Major depressive disorder, recurrent episode with anxious distress F33.9 [place] [address] [place] [id number] [place] [address] 02194- [address] August, [address] R93.8 [facility] [address] [place] [address] [id number] [place] [address] 04805- 1626 Jul, [place] [address] 26319- 6886 Jul, Chronic kidney disease, stage 4 (severe) N18.4 [facility] [address] [place] [id number] [place] [address] 41625- 7783 Jul, [facility] [address] 33554- 7378 Jul, Restless leg G25.81 ; Mixed stress and urge urinary incontinence N39.46 and Fibromyalgia M79.7 [place] [address] [place] [id number] [place] [address] 99768- 1293 Jul, Chronic kidney disease, stage 4 (severe) N18.4 [facility] [address] [place] [id number] [place] [address] 39064- 1583 Jun, Orthostatic hypotension I95.1 ; Chronic kidney disease, stage 4 (severe) N18.4 ; Chest wall discomfort R07.89 and Body mass index (BMI) of 40.0-44.9 in adult Z68.41 [place] [address] [place] [id number] [place] [address] 95827- 1535 Jun, [place] [address] [id number] [place] [address] 42928- 0845 Jun, Orthostatic hypotension I95.1 [place] [address] [id number] [place] [address] 52056- 8066 Jun, [facility] [address] [id number] [place] [address] 25495 -3657 Jun, Orthostatic hypotension I95.1 ; Dysuria R30.0 and Acute cystitis without hematuria N30.00 [facility] [address] [place] [id number] [place] [address] 24253- 8751 Jun, [facility] [address] [place] [id number] [place] [address] 52740- 8563 Jun, Chronic kidney disease, stage 4 (severe) N18.4 [facility] [address] [place] [id number] [place] [address] 70302- 2680 Jun, Fibromyalgia M79.7 [facility] [address] [place] [id number] [place] [address] 70066- 3167 Jun, [facility] [address] [place] [id number] [place] [address] 25669- 9264 Jun, [facility] [id number] [place] [address] 61937- [address] May, [address] R93.8 and Stage 3 chronic kidney disease N18.3 [facility] [id number] [place] [address] 35248- 3152 May, Chronic kidney disease, stage 4 (severe) N18.4 [facility] [address] [place] [id number] [place] [address] 44250- 5683 May, Chronic kidney disease, stage 4 (severe) N18.4 [facility] [address] [place] [id number] [place] [address] 41961- [address] May, [address] R93.8 [facility] [address] [place] [id number] [place] [address] 83496- 8955 May, [facility] [address] [place] [id number] [place] [address] 30415- 7608 May, [facility] [address] [place] [id number] [place] [address] 83251- 4807 May, Generalized anxiety disorder F41.1 and Major depressive disorder, recurrent episode with anxious distress F33.9 [place] [id number] [place] [address] 14209- 7020 May, Mood disorder F39 [place] [address] [place] [id number] [place] [address] 57130- 9988 Apr, [place] [id number] [place] [address] 24738- 9213 Apr, Infected skin lesion L08.9 and Muscle strain of right shoulder region, initial encounter S46.911A [place] [id number] [place] [address] 91318- 7112 Apr, Generalized anxiety disorder F41.1 and Major depressive disorder, recurrent episode with anxious distress F33.9 [place] [address] [place] [id number] [place] [address] 94958- 4275 Apr, [facility] [id number] [place] [address] 88487- 9346 Apr, Recent urinary tract infection Z87.440 and Hypothyroid E03.9 [facility] [id number] [place] [address] 89474- 2616 Apr, Generalized anxiety disorder F41.1 and Major depressive disorder, recurrent episode with anxious distress F33.9 [facility] [id number] [place] [address] 59645- 4618 Apr, Recent urinary tract infection Z87.440 [place] [id number] [place] [address] 42187- 5712 Mar, [facility] [id number] [place] [address] 03333 -4838 Mar, Dysuria R30.0 ; Acute cystitis without hematuria N30.00 and BMI 40.0-44.9, adult Z68.41 [facility] [id number] [place] [address] 80911- 0114 Mar, [facility] [id number] [place] [address] 82800- 5681 Mar, [facility] [id number] [place] [address] 33167- 9128 Mar, Generalized anxiety disorder F41.1 and Major depressive disorder, recurrent episode with anxious distress F33.9 [facility] [id number] [address] 1602 Feb, Conjunctivitis, bacterial H10.9 [facility] [id number] [place] [address] 07619- 0296 Feb, [facility] [id number] [address] 15 Feb, 2017 Conjunctivitis, bacterial H10.9 [facility] [id number] [place] [address] 18510- 1782 Feb, [facility] [id number] [place] [address] 68290 -7623 Feb, Dysuria R30.0 ; Acute cystitis N30.00 and BMI 40.0-44.9, adult Z68.41 [facility] [address] [place] [id number] [place] [address] 91210- 8479 Feb, [facility] [address] [place] [id number] [place] [address] 48047- 9222 Feb, Generalized anxiety disorder F41.1 and Major depressive disorder, recurrent episode with anxious distress F33.9 [facility] [address] 89740- 5630 Feb, Mood disorder F39 and BMI 40.0-44.9, adult Z68.41 [facility] [address] [place] [id number] [place] [address] 87636- 3465 Jan, [facility] [address] [place] [id number] [place] [address] 82644- 9956 Jan, [facility] [address] [place] [id number] [place] [address] 67078- 9395 Jan, Hypothyroid E03.9 [facility] [address] [place] [id number] [place] [address] 55880- 5117 Jan, [facility] [address] [place] [id number] [place] [address] 69713- 3359 Jan, Chronic kidney disease, unspecified N18.9 ; Hypokalemia E87.6 ; Essential (primary) hypertension I10 ; Fibromyalgia M79.7 ; Coronary artery disease involving ekw[place] coronary artery of ekwok heart, angina presence unspecified I25.10 ; Hypothyroid E03.9 and Encounter for immunization Z23 [facility] [address] [place] [id number] [place] [address] 57434- 2000 Jan, Hypothyroid E03.9 [facility] [address] [place] [id number] [place] [address] 94076- 7241 02 Jan, 2017 [facility] [id number] [address]- 5008 28 Dec, 2016 Vitamin D deficiency E55.9 [facility] [id number] [address]- 7377 28 Dec, 2016 Primary osteoarthritis of left knee M17.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 [facility] [address] [place] [id number] [place] [address] 52568- 3379 19 Dec, 2016 Fibromyalgia M79.7 [facility] [address] [place] [id number] [place] [address] 83083- 6004 18 Dec, 2016 Mood disorder F39 [place] [address] [place] [id number] [place] [address] 87783- 5001 13 Dec, 2016 [facility] [address] [place] [id number] [place] [address] 93196- 0946 13 Dec, 2016 Generalized anxiety disorder F41.1 and Major depressive disorder, recurrent episode with anxious distress F33.9 [facility] [id number] [place] [address] 45463- 3415 11 Dec, 2016 [facility] [id number] [place] [address] 39781- 9965 08 Dec, 2016 Streptococcal meningitis G00.2 [facility] [id number] [place] [address] 35795- 9102 07 Dec, 2016 Streptococcal meningitis G00.2 [facility] [id number] [place] [address] 46000- 6304 07 Dec, 2016 [facility] [address] [place] [id number] [place] [address] 57922- 9764 06 Dec, 2016 Streptococcal meningitis G00.2 [facility] [id number] [place] [address] 02195- 5304 06 Dec, 2016 [facility] [id number] [place] [address] 13860- 3772 Dec, Major depressive disorder, recurrent episode with anxious distress F33.9 [facility] [id number] [place] [address] 25711- 1714 Nov, Fever, unspecified fever cause R50.9 [facility] [address] [place] [id number] [place] [address] 51360- 2476 Nov, [facility] [address] 04326- 6880 Nov, Hypothyroid E03.9 [facility] [address] [place] [id number] [place] [address] 48464- 6400 Nov, Generalized anxiety disorder F41.1 and Major depressive disorder, recurrent episode with anxious distress F33.9 [facility] [address] [place] [id number] [place] [address] 08789- 3555 Nov, [facility] [address] [id number] Oct, Dental examination Z01.20 [facility] [address] [place] [id number] [place] [address] 08004- 9542 Oct, Generalized anxiety disorder F41.1 and Major depressive disorder, recurrent episode with anxious distress F33.9 [facility] [id number] [place] [address] 61710- 4747 Oct, Chronic kidney disease, stage 4 (severe) N18.4 [facility] [address] [place] [id number] [place] [address] 78537- 1993 Oct, [facility] [address] [place] [id number] [place] [address] 82044- 4669 Oct, Fibromyalgia M79.7 [facility] [address] [place] [id number] [place] [address] 06525- 9106 Oct, [facility] [address] [place] [id number] [place] [address] 24211- 6580 Oct, Generalized anxiety disorder F41.1 ; Major depressive disorder, recurrent episode with anxious distress F33.9 and Bipolar disorder, current episode manic without psychotic features F31.10 [place] [id number] [address]- 4335 Sep, [place] [id number] [address]- 3820 Sep, [place] [address] [place] [id number] [place] [address] 20007- 8848 Sep, Vitamin D deficiency E55.9 [place] [id number] [place] [address] 75016- 5333 14 Sep, 2016 Vitamin D deficiency E55.9 [place] [address] [place] [id number] [place] [address] 51894- 6688 Sep, [place] [address] [place] [id number] [place] [address] 73309- 4773 Sep, Chronic kidney disease, stage 4 (severe) N18.4 ; Hypothyroid E03.9 ; Restless leg G25.81 ; Fibromyalgia M79.7 ; Essential ( primary) hypertension I10 ; Vitamin D deficiency E55.9 ; Dyspepsia R10.13 ; Anemia in chronic kidney disease D63.1 ; Chronic kidney disease, unspecified N18.9 ; Coronary artery disease involving e[place] coronary artery of e[place] heart , angina presence unspecified I25.10 ; Screening breast examination Z12.39 and Low back pain M54.5 [place] [id number] [place] [address] 88341- 1008 August, Generalized anxiety disorder F41.1 and Major depressive disorder, recurrent episode with anxious distress F33.9 [place] [id number] [place] [address] 10795- 2053 August, Generalized anxiety disorder F41.1 and Major depressive disorder, recurrent episode with anxious distress F33.9 [place] [id number] [address]- 0435 August, Fibromyalgia M79.7 [place] [address] [place] [id number] [place] [address] 97401- 0813 Jul, Generalized anxiety disorder F41.1 and Major depressive disorder, recurrent episode with anxious distress F33.9 [place] [address] [place] [id number] [place] [address] 82462- 1256 Jul, Fibromyalgia M79.7 [place] [address] [place] [id number] [place] [address] 07437- 9124 Jul, Generalized anxiety disorder F41.1 [place] [address] [place] [id number] [place] [address] 18088- 2771 May, [place] [address] 72764- 3072 May, Hypothyroid E03.9 [place] [address] [place] [id number] [place] [address] 01303- 0956 May, Chronic kidney disease, stage 4 (severe) N18.4 ; Hypothyroid E03.9 ; Restless leg G25.81 ; Fibromyalgia M79.7 ; Essential ( primary) hypertension I10 ; Vitamin D deficiency E55.9 ; Dyspepsia R10.13 ; Acute non-recurrent maxillary sinusitis J01.00 ; Anemia in chronic kidney disease D63.1 ; Chronic kidney disease, unspecified N18.9 and Coronary artery disease involving e[place] coronary artery of ekw[place] heart, angina presence unspecified I25.10 [place] [id number] [place] [address] 86194- 1069 May, Vitamin D deficiency, unspecified E55.9 [place] [address] [place] [id number] [place] [address] 28291- 2647 May, Generalized anxiety disorder F41.1 and Major depressive disorder, recurrent episode with anxious distress F33.9 [place] [address] [place] [id number] [place] [address] 46306- 1360 Apr, Pain in right knee M25.561 and Pain in left knee M25.562 [place] [address] [place] [id number] [place] [address] 12225- 0170 Apr, [facility] [id number] [place] [address] 30831- 0842 Apr, [facility] [address] [id number] [place] [address] 98123- 6206 Apr, [facility] [address] [id number] [place] [address] 65847- 1800 Mar, Generalized anxiety disorder F41.1 and Major depressive disorder, recurrent episode with anxious distress F33.9 [facility] [address] [place] [id number] [place] [address] 45918- 7812 Mar, Generalized anxiety disorder F41.1 and Major depressive disorder, recurrent episode with anxious distress F33.9 [facility] [address] [id number] [place] [address] 18877- 8283 Mar, [facility] [address] [id number] [place] [address] 25280- 7943 Mar, [facility] [id number] [place] [address] 16154- 6259 Mar, [place] [address] [id number] [place] [address] 10371- 1633 Mar, Asthma J45.909 and Fibromyalgia M79.7 [place] [address] [place] [id number] [place] [address] 08140- 8592 Mar, Chronic kidney disease, stage 4 (severe) N18.4 ; Vitamin D deficiency E55.9 and Essential (primary) hypertension I10 [facility] [address] [id number] [place] [address] 68751- 3018 Feb, [facility] [id number] [place] [address] 22206- 8700 Feb, Dysuria R30.0 ; Mixed stress and urge urinary incontinence N39.46 ; Fibromyalgia M79.7 and Chronic kidney disease, stage IV (severe) N18.4 [facility] [id number] [place] [address] 11368- 6808 Feb, Chronic kidney disease, stage 4 (severe) N18.4 [facility] [id number] [place] [address] 42836- 8498 Feb, Chronic kidney disease, stage 4 (severe) N18.4 [facility] [id number] [place] [address] 01468- 4713 Feb, [facility] [id number] [place] [address] 10301- 8505 Feb, Vitamin D deficiency, unspecified E55.9 [facility] [id number] [place] [address] 87152- 5011 Jan, [facility] [id number] [place] [address] 28380- 6768 Jan, [facility] [id number] [place] [address] 99985- 7562 Dec, [facility] [id number] [place] [address] 81317- 8174 Dec, Chronic kidney disease, stage 4 (severe) N18.4 [facility] [id number] [place] [address] 21457- 3184 Dec, Dysthymic disorder F34.1 and Generalized anxiety disorder F41.1 [place] [id number] [place] [address] 32740- 4778 Dec, [facility] [id number] [place] [address] 52702- 2544 Dec, [facility] [id number] [place] [address] 29508- 9928 08 Dec, 2015 Dysthymic disorder F34.1 and Generalized anxiety disorder F41.1 [facility] [id number] [place] [address] 43308- 2744 Dec, Dysuria R30.0 ; Chronic kidney disease, stage 4 (severe) N18.4 ; Hypertension I10 ; Dyspepsia R10.13 ; Yeast dermatitis B37.2 ; Palpitations R00.2 ; Hypothyroid E03.9 ; Functional 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 and Other seasonal allergic rhinitis J30.2 [facility] [address] 05729 -1194 Dec, [facility] [address] [address] Nov, Dysuria R30.0 and Stress incontinence N39.3 [place] [address] [address] Nov, [place] [address] [address] Nov, [place] [address] [address] Nov, Osteoarthritis of knees, bilateral M17.0 [place] [address] [address] Nov, Dysthymic disorder F34.1 and Generalized anxiety disorder F41.1 [place] [address] [address] Nov, [place] [address] [address] Nov, [place] [address] [address] Nov, Urgency of urination R39.15 [place] [address] [address] Nov, [place] [address] [address] Nov, Chronic kidney disease, stage 4 (severe) N18.4 [place] [address] [address] Oct, Hypertension I10 ; Coronary artery disease involving [place] coronary artery of [place] heart, angina presence unspecified I25.10 ; Palpitations R00.2 ; Hypothyroid E03.9 ; Right foot pain M79.671 ; Functional 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 and Other seasonal allergic rhinitis J30.2 [facility] [address] [place] [id number] [place] [address] Oct, Dysthymic disorder F34.1 and Generalized anxiety disorder F41.1 [place] [address] [address] Sep, [facility] [address] [address] Sep, [place] [address] [address] Sep, [place] [address] [place] [id number] [place] [address] Sep, [facility] [address] [place] [address] [id number] [place] [address] Sep, [place] [address] [address] [address] [id number] [place] [address] 56528- 9802 Sep, Dysthymic disorder F34.1 and Generalized anxiety disorder F41.1 [place] [id number] [place] [address] 31684- 5862 Sep, Asthma with acute exacerbation in adult J45.901 ; Dysuria R30.0 ; Chronic kidney disease, stage 4 (severe) N18.4 and History of anemia Z86.2 [place] [id number] [place] [address] 73442- 3072 Sep, Generalized anxiety disorder F41.1 and Dysthymic disorder F34.1 [place] [id number] [place] [address] 05915- 9557 August, Screening breast examination Z12.39 and Acute recurrent maxillary sinusitis J01.01 [place] [address] 57110- 0455 August, Osteoarthritis of knees, bilateral M17.0 [place] [id number] [place] [address] 37477- 6166 August, Chronic kidney disease, stage 4 (severe) N18.4 ; Acute non- recurrent maxillary sinusitis J01.00 ; Urinary problem R39.89 ; Bowel habit changes R19.4 ; Functional 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 and History of colon polyps Z86.010 [place] [id number] [place] [address] 06295- 4004 Jul, Dysthymic disorder F34.1 and Generalized anxiety disorder F41.1 [place] [id number] [place] [address] 84147- 3368 Jul, [place] [id number] [place] [address] 41380- 9408 Jul, Dysthymic disorder F34.1 ; Generalized anxiety disorder F41.1 and meterman use of drug Z79.899 [place] [id number] [place] [address] 15263- 3559 Jul, [place] [id number] [place] [address] 15705- 8127 Jun, [place] [id number] [place] [address] 71002- 4808 Jun, [place] [id number] [place] [address] 38436- 3914 May, [place] [id number] [place] [address] 19043- 7207 May, Dysthymic disorder F34.1 and Generalized anxiety disorder F41.1 [place] [id number] [place] [address] 25452- 3847 Apr, Kidney disease N28.9 [place] [id number] [place] [address] 04443- 8883 Apr, Generalized anxiety disorder F41.1 and Dysthymic disorder F34.1 [place] [id number] [place] [address] 21863- 0865 Apr, Chronic kidney disease, stage 4 (severe) N18.4 [place] [id number] [place] [address] 66852- 9247 Apr, Generalized anxiety disorder F41.1 ; Major depression, recurrent F33.9 and Sleep disturbance G47.9 [place] [id number] [place] [address] 18527- 0729 Mar, Generalized anxiety disorder F41.1 and Dysthymic disorder F34.1 [place] [id number] [place] [address] 85422- 6261 Mar, Generalized anxiety disorder F41.1 ; Dysthymic disorder F34.1 and Insomnia G47.00 [place] [id number] [place] [address] 59813- 6537 Mar, [place] [id number] [place] [address] 56626- 2496 Mar, [place] [address] 38724- 2154 Mar, Osteoarthritis of knees, bilateral M17.0 [place] [id number] [place] [address] 49469- 3361 Mar, Hypertension I10 ; Hypothyroid E03.9 ; Dysthymic disorder F34.1 ; Chronic kidney disease, stage 4 (severe) N18.4 and Nausea & vomiting R11.2 [place] [id number] [place] [address] 19848- 1310 Mar, Generalized anxiety disorder F41.1 ; Dysthymic disorder F34.1 and Insomnia G47.00 [place] [id number] [place] [address] 05431- 4597 Mar, Dehydration E86.0 ; Chronic kidney disease, stage 4 (severe ) N18.4 and Nausea & vomiting R11.2 [facility] [address] [address] Mar, Gastroenteritis K52.9 [facility] [address] [place] [address] 31750- 6531 Mar, [facility] [id number] [place] [address] 22894- 9523 Mar, [place] [id number] [place] [address] 70008- 3561 Feb, Dysthymic disorder F34.1 and Generalized anxiety disorder F41.1 [place] [id number] [place] [address] 89382- 3084 Jan, UTI (urinary tract infection) N39.0 ; Asthma J45.909 ; Coronary artery disease involving ekwok coronary artery of ekwok heart, angina presence unspecified I25.10 ; Hypertension I10 ; Hypothyroid E03.9 ; Vitamin D deficiency E55.9 ; Insomnia G47.00 ; Palpitations R00.2 ; Depressed F32.9 ; Restless leg G25.81 and Anxiety F41.9 [place] [id number] [place] [address] 10921- 5155 Jan, Dysthymic disorder F34.1 and Generalized anxiety disorder F41.1 [place] [address] [place] [address] 88770- 3827 Jan, [place] [id number] [place] [address] 43767- 6001 Dec, [place] [address] [place] [address] 74295- 7010 Dec, Alkalosis 276.3 ; Chronic kidney disease, 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.4 ; Hyperpotassemia 276.7 ; Secondary hyperparathyroidism, renal 588.81 ; Proteinuria 791.0 ; Unspecified vitamin D deficiency 268.9 ; Anemia in chronic kidney disease 285.21 ; Other and unspecified hyperlipidemia 272.4 ; Hypertension, essential, benign 401.1 and Chronic kidney disease (CKD), stage III (moderate) 585.3 [place] [id number] [place] [address] 12730- 6501 Dec, [place] [id number] [place] [address] 72816- 0771 Dec, Depressive disorder, not elsewhere classified 311 and Generalized anxiety disorder 300.02 [place] [address] 52530- 5551 Dec, [place] [address] 50215- 5770 Dec, [address] 67408- 0241 Nov, Depressive disorder, not elsewhere classified 311 and Generalized anxiety disorder 300.[address] 03865- 7695 Nov, Arthritis of both knees 716.[address] 18323- 7567 Nov, PAF (paroxysmal atrial fibrillation) 427.31 ; CAD (coronary artery disease) 414.00 ; Chest pain 786.50 and Chronic kidney disease (CKD) stage G4/A1, severely decreased glomerular filtration rate (GFR) between 15-29 mL/min/1.73 square meter and albuminuria creatinine ratio less than 30 mg/g 585.4 [id number] [place] [address] 94340- 6980 Oct, Coronary atherosclerosis of unspecified type of vessel, ekwok or graft 414.00 ; Chronic kidney disease, 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.4 ; Hypertension 401.9 and Edema 782.3 [id number] [place] [address] 75967- 0916 Oct, Depressive disorder, not elsewhere classified 311 and Generalized anxiety disorder 300.02 [address] [id number] [place] [address] 86547- 9621 Oct, Depressive disorder, not elsewhere classified 311 and Generalized anxiety disorder 300.02 [facility] [address] [address]- 0795 Oct, [facility] [address] [place] [address] 77503- 8565 Oct, [facility] [address] [place] [address] 55954- 3579 Sep, [facility] [id number] [place] [address] 40880- 8642 Sep, Chronic kidney disease, 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.4 [place] [id number] [place] [address] 67474- 7263 Sep, [facility] [id number] [place] [address] 26582- 2667 Sep, Coronary atherosclerosis of unspecified type of vessel, ekwok or graft 414.00 ; Hypertension 401.9 ; Edema 782.3 and Hypothyroidism 244.9 [facility] [id number] [place] [address] 63887- 9122 Sep, Coronary atherosclerosis of unspecified type of vessel, ekwok or graft 414.00 ; Hypertension 401.9 ; Fibromyalgia 729.1 ; Edema 782.3 ; Hypothyroidism 244.9 and Anemia 285.9 [place] [address] [place] [address] 17242- 5765 Sep, Anxiety disorder, unspecified 300.00 and Depressive disorder , not elsewhere classified 311 [facility] [id number] [place] [address] 04495- 2804 Sep, [facility] [id number] [place] [address] 03266- 3365 August, Generalized anxiety disorder 300.02 [facility] [id number] [place] [address] 90547- 2026 August, Closed fracture of lateral malleolus 824.2 [place] [id number] [place] [address] 06256- 8058 14 Jul, 2014 [facility] [place] [facility] [address] [id number] [place] [address]- 1532 13 Jul, 2014 [facility] [place] [facility] [address] [facility] [id number] [place] [address]- 8829 Jun, [facility] [place] [facility] [address] [facility] [id number] [place] [address]- 7723 Jun, [facility] [place] [facility] [address] [facility] [id number] [place] [address]- 4558 Jun, [facility] [place] [facility] [address] [facility] [id number] [place] [address]- 6443 Jun, [facility] [place] [facility] [address] [facility] [id number] [place] [address]- 6165 Jun, [facility] [place] [facility] [id number] [address]- 1385 Jun, [facility] [place] [facility] [address] [facility] [id number] [place] [address]- 8800 May, 2014 [facility] [place] [facility] [id number] [address]- 7102 19 May, 2014 [facility] [place] [facility] [id number] [address]- 9999 18 May, 2014 [facility] [place] [facility] [id number] [address]- 8234 18 May, 2014 [facility] [place] [facility] [address] [facility] [id number] [address]- 3477 16 May, 2014 [facility] [place] [facility] [address] [facility] [id number] [place] [address]- 7642 16 May, 2014 [facility] [place] [facility] [address] [facility] [id number] [address]- 6922 13 May, 2014 [facility] [place] [facility] [id number] [address]- 4706 13 May, 2014 [facility] [place] [facility] [address] [id number] [place] [address]- 3730 10 May, 2014 [facility] [place] [facility] [address] [id number] [place] [address]- 7516 10 May, 2014 [facility] [place] [facility] [address] [id number] [place] [address]- 2105 Apr, [facility] [place] [facility] [address] [id number] [place] [address]- 3476 Apr, [facility] [place] [facility] [address] [id number] [place] [address]- 2576 Mar, [facility] [place] [facility] [address] [id number] [place] [address]- 2292 Mar, [facility] [place] [facility] [address] [id number] [place] [address]- 2076 Mar, [facility] [place] [facility] [address] [id number] [place] [address]- 5556 15 Mar, 2014 [facility] [place] [facility] [address] [id number] [place] [address] 2549 Mar, [facility] [place] [facility] [address] [id number] [place] [address]- 2543 Mar, [facility] [place] [facility] [address] [id number] [place] [address]- 2541 Mar, [facility] [place] [facility] [address] [id number] [place] [address]- 7472 Feb, [facility] [place] [facility] [address] [id number] [place] [address] 2545 Feb, [facility] [place] [facility] [address] [id number] [place] [address]- 2546 Feb, [facility] [place] [facility] [address] [id number] [place] 2965 Jan, [facility] [place] [facility] [address] [id number] [place] [address]- 5745 Jan, [facility] [place] [facility] [address] [id number] [place] [address]- 6328 Jan, [facility] [place] [facility] [address] [id number] [place] [address]- 1981 Jan, [facility] [place] [facility] [address] [id number] [place] [address]- 7651 Jan, [facility] [place] [facility] [address] [id number] [place] [address]- 4664 Jan, [facility] [place] [facility] [address] [id number] [place] [address]- 6860 Jan, [facility] [place] [facility] [address] [id number] [place] [address]- 8282 Jan, [facility] [place] [facility] [address] [id number] [place] [address]- 2184 Jan, [facility] [place] [facility] [address] [id number] [place] [address]- 8238 Jan, [facility] [place] [facility] [address] [id number] [place] [address]- 7764 Nov, [facility] [place] [facility] [address] [id number] [place] [address]- 4112 Nov, [facility] [place] [facility] [address] [id number] [place] [address]- 2468 Nov, [facility] [place] [facility] [address] [id number] [place] [address]- 4769 Oct, [facility] [place] [facility] [address] [id number] [place] [address]- 6081 Oct, [facility] [place] [facility] [address] [id number] [place] [address]- 7216 Oct, [facility] [place] [facility] [address] [id number] [place] 9709 Oct, [facility] [place] [facility] [address] [id number] [place] [address]- 7712 Oct, [facility] [place] [facility] [address] [id number] [place] [address]- 1318 Oct, [facility] [place] [facility] [address] [id number] [place] [address]- 5550 Oct, [facility] [place] [facility] [address] [id number] [place] [address]- 4014 Oct, [facility] [place] [facility] [address] [id number] [place] [address]- 8007 Oct, [facility] [place] [facility] [address] [id number] [place] [address]- 9474 Sep, [facility] [place] [facility] [address] [id number] [place] [address]- 5117 Sep, [facility] [place] [facility] [address] [id number] [place] [address]- 4093 Sep, [facility] [place] [facility] [address] [id number] [place] [address]- 0726 Sep, [facility] [place] [facility] [address] [id number] [place] [address]- 1534 Sep, [facility] [place] [facility] [address] [id number] [place] [address]- 7297 Sep, [facility] [place] [facility] [address] [id number] [place] [address]- 6089 Sep, [facility] [place] [facility] [address] [id number] [place] [address]- 8518 Sep, [facility] [place] [facility] [address] [id number] [place] [address]- 7861 Sep, [facility] [place] [facility] [address] [id number] [place] [address]- 1224 August, [facility] [place] [facility] [address] [id number] [place] [address]- 3544 August, [facility] [place] [facility] [address] [id number] [place] [address]- 7346 August, [facility] [place] [facility] [address] [id number] [place] [address]- 2972 August, [facility] [place] [facility] [address] [id number] [place] [address]- 6650 August, [facility] [place] [facility] [address] [id number] [place] [address]- 2003 August, [facility] [place] [facility] [address] [id number] [place] [address]- 3279 Jul, [facility] [place] [facility] [address] [id number] [place] [address]- 7532 Jul, [facility] [place] [facility] [address] [id number] [place] [address]- 9667 Jul, [facility] [place] [facility] [address] [id number] [place] [address]- 7240 Jul, [facility] [place] [facility] [address] [id number] [place] [address]- 2505 Jul, [facility] [place] [facility] [address] [id number] [place] [address]- 3210 Jul, [facility] [place] [facility] [address] [id number] [place] [address]- 7610 Jun, [facility] [place] [facility] [address] [id number] [address]- 7411 Jun, [facility] [place] [facility] [address] [id number] [place] [address]- 7467 May, [facility] [place] [facility] [address] [id number] [place] [address]- 8756 May, [facility] [place] [facility] [address] [id number] [place] [address]- 4660 May, [facility] [place] [facility] [address] [id number] [place] [address]- 1836 10 May, 2013 [facility] [address] [id number] [place] [address]- 6818 Apr, [facility] [address] [id number] [place] [address]- 1846 Apr, [facility] [address] [id number] [place] [address]- 8799 Mar, [facility] [address] [id number] [place] [address]- 3216 Mar, [facility] [address] [id number] [place] [address]- 6984 Mar, [facility] [address] [facility] [id number] [place] 5024 Mar, [facility] [address] [id number] [place] [address]- 1881 Mar, [facility] [address] [id number] [place] [address]- 3289 05 Mar, 2013 [facility] [address] [id number] [place] [address]- 6435 Feb, [facility] [address] [facility] [id number] [place] [address]- 4894 Feb, [facility] [place] [facility] [address] [id number] [place] [address]- 7023 Feb, [facility] [address] [id number] [place] [address]- 6885 Feb, [facility] [place] [facility] [address] [id number] [place] [address]- 2274 05 Feb, 2013 [facility] [place] [facility] [address] [id number] [place] [address]- 7996 05 Feb, 2013 [facility] [place] [facility] [address] [id number] [place] [address]- 0220 Jan, [facility] [place] [facility] [address] [id number] [place] [address]- 6063 Jan, [facility] [place] [facility] [address] [id number] [place] [address]- 0262 Jan, [facility] [place] [facility] [address] [id number] [place] [address]- 6951 Jan, [facility] [place] [facility] [address] [id number] [place] [address]- 1418 Jan, [facility] [place] [facility] [address] [id number] [place] 2609 Jan, [facility] [place] [facility] [address] [id number] [place] [address]- 7432 Dec, [facility] [place] [facility] [address] [id number] [place] [address]- 4031 Dec, [facility] [place] [facility] [address] [id number] [place] [address]- 6245 Nov, [facility] [place] [facility] [address] [id number] [place] [address]- 3605 Nov, [facility] [place] [facility] [address] [id number] [place] [address]- 3529 Oct, [facility] [place] [facility] [address] [id number] [place] [address]- 3043 Oct, [facility] [place] [facility] [address] [id number] [place] [address]- 7490 Oct, [facility] [place] [facility] [address] [id number] [place] [address]- 4293 Oct, [facility] [place] [facility] [address] [id number] [place] [address]- 0709 Oct, [facility] [place] [facility] [address] [id number] [place] [address]- 5811 Oct, [facility] [place] [facility] [address] [id number] [place] [address]- 7231 Sep, [facility] [address] [id number] [place] [address]- 4034 Sep, [facility] [address] [id number] [place] [address]- 2392 Sep, [facility] [address] [id number] [place] [address]- 2936 Sep, [facility] [address] [id number] [place] [address]- 7156 August, [facility] [address] [id number] [place] [address]- 8946 August, [facility] [address] [id number] [place] [address]- 8796 August, [facility] [address] [id number] [place] [address] August, [facility] [address] [id number] [place] [address] August, [facility] [address] [id number] [place] [address] Jul, [facility] [address] [id number] [place] [address] Jul, [facility] [address] [id number] [place] [address] 15 Jul, 2012 [facility] [address] [id number] [place] [address] Jul, [facility] [address] [id number] [place] [address] Jul, [facility] [address] [id number] [place] [address] Jul, [facility] [address] [id number] [place] [address] Jul, [facility] [place] [facility] [address] [id number] [place] [address] Jul, [facility] [address] [facility] [id number] [place] [address] Jul, [facility] [address] [facility] [id number] [place] [address] Jul, [facility] [address] [facility] [id number] [id number] Jun, [facility] [address] [facility] [id number] [place] [address] Jun, [facility] [address] [id number] [place] [address] Jun, [facility] [address] [id number] [place] [address] Jun, [facility] [address] [facility] [id number] [place] [address] Jun, [facility] [address] [facility] [id number] [place] [address] May, [facility] [address] [id number] [place] [address] May, [facility] [address] [facility] [id number] [place] [address] May, [facility] [address] [id number] [place] [address] Apr, [facility] [address] [id number] [place] [address] Apr, [facility] [place] [facility] [address] [id number] [place] [address] Apr, [facility] [address] [facility] [id number] [place] [address] Apr, [facility] [address] [facility] [id number] [place] [address] Apr, [facility] [place] [facility] [address] [id number] [place] [address] Apr, [facility] [place] [facility] [address] [id number] [place] [address] Mar, [facility] [place] [facility] [address] [id number] [place] [address] Mar, [facility] [place] [facility] [address] [id number] [place] [address] Mar, [facility] [place] [facility] [address] [id number] [place] [address] Mar, [facility] [place] [facility] [address] [id number] [place] [address] Feb, [facility] [place] [facility] [address] [id number] [place] [address] Feb, [facility] [place] [facility] [address] [id number] [place] [address] Feb, [facility] [place] [facility] [address] [id number] [place] [address] Feb, [facility] [place] [facility] [address] [id number] [address] Feb, [facility] [place] [facility] [address] [id number] [place] [address] Feb, [facility] [place] [facility] [address] [id number] [address] Feb, [facility] [place] [facility] [address] [id number] [place] [address] Feb, [facility] [place] [facility] [address] [id number] [address] Feb, [facility] [place] [facility] [address] [id number] [place] [address] Feb, [facility] [place] [facility] [address] [id number] [place] [address] Feb, [facility] [place] [facility] [address] [id number] [place] [address] 280[address] Feb, [facility] [place] [facility] [address] [id number] [place] [address] Feb, [facility] [place] [facility] [address] [id number] [place] [address] Feb, [facility] [place] [facility] [address] [id number] [place] [address] Feb, [facility] [place] [facility] [address] [id number] [place] [address] Feb, [facility] [place] [facility] [address] [id number] [place] [address] Jan, [facility] [place] [facility] [address] [id number] [place] [address] Jan, [facility] [place] [facility] [address] [id number] [place] [address] 31 Jan, 2012 [facility] [place] [facility] [address] [id number] [place] [address] 31 Jan, 2012 [facility] [facility] [address] [facility] [id number] [place] [address] 30 Jan, 2012 [facility] [place] [facility] [address] [facility] [id number] [place] [address] Jan, [facility] [place] [facility] [address] [id number] [address] Jan, [facility] [place] [facility] [address] [id number] [place] [address] 16 Jan, 2012 [facility] [place] [facility] [address] [facility] [id number] [place] [address] 16 Jan, 2012 [facility] [place] [facility] [address] [facility] [id number] [address] 15 Jan, 2012 [facility] [place] [facility] [address] [id number] [place] [address] 15 Jan, 2012 [facility] [place] [facility] [address] [id number] [place] [address] Jan, [facility] [place] [facility] [address] [id number] [place] [address] 26 Dec, 2011 [facility] [place] [facility] [address] [id number] [place] [address] 26 Dec, 2011 [facility] [place] [facility] [address] [id number] [place] [address] 24 Dec, 2011 [facility] [place] [facility] [address] [id number] [place] [address]- 1697 23 Dec, 2011 [facility] [place] [facility] [address] [id number] [place] [address] 4168 22 Dec, 2011 [facility] [place] [facility] [address] [id number] [place] [address] 8226 21 Dec, 2011 [facility] [place] [facility] [address] [id number] [place] [address]- 8[address] 20 Dec, 2011 [facility] [place] [facility] [address] [id number] [place] [address] 7592 20 Dec, 2011 [facility] [place] [facility] [address] [id number] [place] [address] 46[address] 07 Dec, 2011 [facility] [place] [facility] [address] [id number] [place] [address]- 2541 06 Sep, 2011 [facility] [place] [facility] [address] [id number] [place] [address] 254 06 Dec, 2011 [facility] [place] [facility] [address] [id number] [place] [address]- 2547 05 Dec, 2011 [facility] [place] [facility] [address] [id number] [place] [address]- 2994 23 Nov, 2011 [facility] [place] [facility] [address] [id number] [place] [address]- 5814 Nov, [facility] [place] [facility] [address] [id number] [place] [address] 7528 Nov, [facility] [place] [facility] [address] [id number] [place] [address] 3659 Nov, [facility] [place] [facility] [address] [id number] [place] [address] 1639 Nov, [facility] [place] [facility] [address] [id number] [place] [address] 0259 Nov, [facility] [place] [facility] [address] [id number] [place] [address]- 1165 Nov, [facility] [place] [facility] [address] [id number] [place] [address] 8[address] Nov, [facility] [place] [facility] [address] [id number] [place] [address] 3766 Oct, [facility] [place] [facility] [address] [id number] [place] [address] 2831 Oct, [facility] [place] [facility] [address] [id number] [place] [address] 7148 Oct, [facility] [place] [facility] [address] [id number] [place] [address]- 7081 Oct, [facility] [place] [facility] [address] [id number] [place] [address] 8597 Oct, [facility] [place] [facility] [address] [id number] [place] [address] 1408 Oct, [facility] [place] [facility] [address] [id number] [place] [address] 8949 Oct, [facility] [place] [facility] [address] [id number] [place] [address] 6[address] Sep, [facility] [place] [facility] [address] [id number] [place] [address] 53[address] Sep, [facility] [place] [facility] [address] [id number] [place] [address] 9966 August, [facility] [address] [id number] [place] [address] August, [facility] [address] [id number] [place] [address] 4176 August, [facility] [address] [id number] [place] [address] 8922 August, [facility] [address] [id number] [place] [address] 9195 Jul, [facility] [address] [id number] [place] [address] 8437 Jul, [facility] [address] [id number] [place] [address]- 1182 Jul, [facility] [address] [id number] [place] [address]- 5992 Jul, [facility] [address] [id number] [place] [address]- 6675 Jul, [facility] [address] [id number] [place] [address]- 0931 Jul, [facility] [address] [id number] [place] [address]- 1572 Jul, [facility] [address] [id number] [place] [address]- 1494 Jul, [facility] [address] [id number] [place] [address] 4653 Jul, [facility] [address] [id number] [place] [address]- 2206 Jun, [facility] [address] [id number] [place] [address]- 9266 Jun, [facility] [address] [id number] [place] [address]- 7647 15 Jun, 2011 [facility] [address] [id number] [place] [address]- 4583 14 Jun, 2011 [facility] [address] [id number] [place] [address]- 1266 12 Jun, 2011 [facility] [address] [id number] [place] [address]- 1846 09 Jun, 2011 [facility] [facility] [address] [id number] [place] [address]- 2906 Jun, [facility] [address] [id number] [place] [address]- 3506 May, [facility] [address] [id number] [place] [address]- 9156 24 May, 2011 [facility] [address] [id number] [place] [address]- 0396 16 May, 2011 [facility] [address] [id number] [place] [address]- 8317 May, [facility] [address] [id number] [place] [address]- 3577 May, [facility] [address] [id number] [place] [address]- 3996 Apr, [facility] [address] [id number] [place] [address] 1176 Apr, [facility] [address] [id number] [place] [address]- 2266 Apr, [facility] [address] [id number] [place] [address]- 0948 Apr, [facility] [address] [id number] [place] [address]- 1906 05 Apr, 2011 [facility] [address] [id number] [place] [address]- 0406 Mar, [facility] [address] [id number] [place] [address] Mar, [facility] [place] [facility] [address] [id number] [place] [address] Mar, [facility] [facility] [address] [id number] [place] [address] Mar, [facility] [address] [id number] [place] [address]- 4676 Mar, [facility] [address] [id number] [place] [address]- 5301 Mar, [facility] [facility] [address] [id number] [place] [address]79 Mar, [facility] [address] [id number] [place] [address]- 7569 Feb, [facility] [facility] [address] [id number] [place] [address]- 0898 Feb, [facility] [place] [facility] [address] [id number] [place] [address]- 6492 Feb, [facility] [place] [facility] [address] [id number] [place] [address]- 5523 Feb, [facility] [facility] [address] [facility] [id number] [place] [address]- 1411 Jan, [facility] [place] [facility] [address] [id number] [place] [address]- 1338 Jan, [facility] [address] [id number] [place] [address]- 8663 Jan, [facility] [address] [id number] [place] [address]- 8589 Jan, [facility] [place] [facility] [address] [id number] [place] [address] Nov, [facility] [facility] [address] [id number] [place] [address] Mar, [facility] [id number] [address] Mar, [facility] [id number] [address] Mar, [facility] [id number] [address] [address]83 Mar, [facility] [id number] [place] [address]- 9552 Mar, [facility] [id number] [address] Mar, [facility] [id number] [place] [address]- [address]27 Feb, [facility] [id number] [address]- 1132 Feb, [facility] [id number] [address]- 1015 Jan, [facility] [id number] [address] 6030 Jan, [facility] [id number] [address] 1803 Jan, IMMUNIZATIONS No Known Immunizations SOCIAL HISTORY Never Assessed REASON FOR VISIT foul smelling urine, need to go increased, burning with urination started 2-3 weeks ago [place] PLAN OF CARE Activity Details Follow Up prn Reason: VITAL SIGNS Height 63 in 2017-02-23 Weight 244.4 lbs 2017-02-23 Temperature 98.4 degrees Fahrenheit 2017-02-23 Heart Rate 68 bpm 2017-02-23 Respiratory Rate 20 2017-02-23 BMI 43.29 kg/m2 2017-02-23 Blood pressure systolic 110 mmHg 2017-02-23 Blood pressure diastolic 78 mmHg 2017-02-23 MEDICATIONS Medication Instructions Dosage Frequency Start Date End Date Duration Status Norvasc 5 mg Orally Once a day 1 tablet 24h Active Vitamin C 1000 MG Orally Once a day 1 tablet 24h Active Voltaren 1 % Transdermal to knee BID. Max dose 4 grams 2 grams Jan, 8 Active ProAir HFA 108 (90 Base) MCG/ACT Inhalation every 4 hrs 2 puffs as needed 4h 16 Sep, 2015 Active Requip 4 MG Orally do not fill in er Once a day 2 tablets 1 to 3 hours before bedtime 24h 30 Active Vitamin D (Ergocalciferol) 15567 UNIT Orally once weekly 1 capsule Active Lyrica 150 MG Orally 3 times a day 1 capsule 8h Active Trazodone HCl 100 MG Orally Once a day 0.5-1 tablet at night as needed for sleep 24h Dec, 30 days Active Potassium Chloride ER 10 MEQ TAKE ONE CAPSULE BY MOUTH ONCE DAILY WITH FOOD 30 Active Furosemide 40 mg Orally Once a day 1 tablet 24h 30 Active Losartan Potassium 100 mg Orally Once a day 1 tablet 24h 30 Active Cetirizine HCl 10 MG TAKE ONE TABLET BY MOUTH ONCE DAILY August, 30 Active Fluticasone Propionate 50 MCG/ACT Nasally Once a day USE ONE SPRAY IN EACH NOSTRIL TWICE DAILY 24h Active Gemfibrozil 600 MG Orally Twice a day 1 tablet 12h 30 Active Symbicort 80-4.5 MCG/ACT Inhalation Twice a day 2 puffs 12h Mar, Active Toprol XL 50 MG TAKE ONE TABLET BY MOUTH THREE TIMES DAILY 30 Active Bactrim DS 800-160 MG Orally Twice a day 1 tablet 12h Feb,Feb 3 days Active Protonix 40 mg Orally Once a day 1 tablet 24h 30 Active Nystatin 679854 UNIT/ML Mouth/Throat Four times a day 4 ml 6h Active Fiber Complete - Active Nystatin 186912 UNIT/GM Externally Twice a day 1 application to thighs as needed 12h Sep, 5 Active Trileptal 300 MG Orally one in the morning, and two at night 1 tablet Oct, 30 days Active Synthroid 150 MCG Orally Once a day 1 tablet 24h 30 Active Fish Oil 1200 MG Orally Once a day 1 capsule 24h 30 days Active Cymbalta 60 MG Orally Once a day 1 capsule 24h 30 days Active Ferrous Sulfate 325 (65 Fe) MG Orally Once a day 1 tablet 24h Active Clonazepam 1 MG Orally Twice a day as needed 1 tablet 30 days Active RESULTS No Results PROCEDURES Procedure Date Ordered Result Body Site URINALYSIS, AUTO, W/O SCOPE Feb 23, 2017 [facility], 2017 [facility] VISIT ESTABLISHED PATIENT Feb 23, 2017 INSTRUCTIONS MEDICATIONS ADMINISTERED No Known Medications [...] 2020 & 2007 Surgical History Bladder surgery [facility] 03/2016 Hospitalization History Surgeries Only Hospitalization History 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
--- OUTSIDE RECORDS SUMMARY | 2018-05-29 08:12 | XMS REPORT ---
Author Author AMANDA LEIJA [facility] Address [address] [place] [address] Care Team Providers Care Professor Of Special Education Name Role Phone AMANDA LEIJA Unavailable PROBLEMS Type Condition ICD9-CM Code [id number] Code Onset Dates Condition Status SNOMED Code Problem Long-term use of high-risk medication Z79.899 Active 571597911 Problem Abnormal chest CT R93.8 Active 171233877 Problem Low back pain M54.5 Active 536337021 Problem Generalized anxiety disorder F41.1 Active 23303686 Problem Dysthymic disorder F34.1 Active 47566241 Problem Coronary artery disease involving pala coronary artery of pala heart, angina presence unspecified I25.10 Active 2445184456695 Problem Depressed F32.9 Active 72623249 Problem Fibromyalgia M79.7 Active 072474953 Problem Hypothyroid E03.9 Active 29657988 Problem Essential (primary) hypertension I10 Active 98049026 Problem Insomnia G47.00 Active 903912951 Problem Vitamin D deficiency E55.9 Active 21542122 Problem Anemia in chronic kidney disease D63.1 Active 662627111831275 Problem Chronic kidney disease, unspecified N18.9 Active 822475697 Problem Body mass index (BMI) of 40.0-44.9 in adult Z68.41 Active 592989894 Problem Stage 3 chronic kidney disease N18.3 Active 216662862 Problem Restless leg G25.81 Active 47086065 Problem Palpitations R00.2 Active 61957647 Problem Asthma J45.909 Active 587192634 Problem Primary osteoarthritis of left knee M17.12 Active 949145265 Problem Bipolar disorder, current episode manic without psychotic features F31.10 Active 110517050 Problem Mood disorder F39 Active 88465698 Problem Degenerative tear of medial meniscus of left knee M23.204 Active 099342906 Problem History of colon polyps Z86.010 Active 048286808 Problem Asthma with acute exacerbation in adult J45.901 Active 693037881 Problem Chronic kidney disease, stage 4 (severe) N18.4 Active 508829112 Problem Functional 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 Active 23881677 Problem Hypokalemia E87.6 Active 00695265 Problem Mixed stress and urge urinary incontinence N39.46 Active 511815363 Problem History of anemia Z86.2 Active 941914088 Problem Other seasonal allergic rhinitis J30.2 Active 999785246 ALLERGIES No Known Allergies ENCOUNTERS Encounter Location Date Diagnosis [facility] [id number] [place] [address] 65386- 3113 Sep, [facility] [address] 14505- 9788 August, Fibromyalgia M79.7 [facility] [address] 62369- 6422 August, [facility] [address] 34156- 3963 August, [facility] [id number] [place] [address] 09471- 1476 August, Ab[address] chest [address] R93.8 [facility] [address] 62783- 0921 August, Generalized anxiety disorder F41.1 and Major depressive disorder, recurrent episode with anxious distress F33.9 [facility] [id number] [place] [address] 35435- 4406 August, Ab[address] chest [address] R93.8 [facility] [id number] [place] [address] 80938- 5730 Jul, [facility] [id number] [place] [address] 85141- 4192 Jul, Chronic kidney disease, stage 4 (severe) N18.4 [facility] [id number] [place] [address] 27256- 4938 Jul, [facility] [address] 83214- 3602 Jul, Restless leg G25.81 ; Mixed stress and urge urinary incontinence N39.46 and Fibromyalgia M79.7 [facility] [id number] [place] [address] 54285- 9907 Jul, Chronic kidney disease, stage 4 (severe) N18.4 [facility] [id number] [place] [address] 22470- 8009 Jun, Orthostatic hypotension I95.1 ; Chronic kidney disease, stage 4 (severe) N18.4 ; Chest wall discomfort R07.89 and Body mass index (BMI) of 40.0-44.9 in adult Z68.41 [facility] [id number] [place] [address] 54884- 1065 Jun, [facility] [id number] [place] [address] 30864- 0250 Jun, Orthostatic hypotension I95.1 [facility] [id number] [place] [address] 32812- 8436 Jun, [facility] [id number] [place] [address] 51373 -9559 Jun, Orthostatic hypotension I95.1 ; Dysuria R30.0 and Acute cystitis without hematuria N30.00 [facility] [id number] [place] [address] 81897- 1941 Jun, [facility] [id number] [place] [address] 30434- 5247 Jun, Chronic kidney disease, stage 4 (severe) N18.4 [facility] [id number] [place] [address] 77112- 2446 Jun, Fibromyalgia M79.7 [facility] [id number] [place] [address] 93380- 1013 Jun, [facility] [id number] [place] [address] 86713- 5849 Jun, [facility] [address] [address]- [address] May, [address] R93.8 and Stage 3 chronic kidney disease N18.3 [facility] [address] [address]- 3599 May, Chronic kidney disease, stage 4 (severe) N18.4 [facility] [id number] [place] [address] 75588- 3621 May, Chronic kidney disease, stage 4 (severe) N18.4 [facility] [id number] [place] [address] 87674- [address] May, [address] R93.8 [facility] [address] [place] [address] 57132- 4370 May, [facility] [id number] [place] [address] 83531- 4375 May, [facility] [address] [place] [address] 57362- 2884 May, Generalized anxiety disorder F41.1 and Major depressive disorder, recurrent episode with anxious distress F33.9 [facility] [address] [place] [address] 74990- 4851 May, Mood disorder F39 [facility] [address] [place] [address] 06310- 2109 Apr, [facility] [address] [place] [address] 22859- 8465 Apr, Infected skin lesion L08.9 and Muscle strain of right shoulder region, initial encounter S46.911A [facility] [address] [place] [address] 92641- 7432 Apr, Generalized anxiety disorder F41.1 and Major depressive disorder, recurrent episode with anxious distress F33.9 [facility] [id number] [place] [address] 32667- 8242 Apr, [facility] [address] [place] [address] 91219- 0220 Apr, Recent urinary tract infection Z87.440 and Hypothyroid E03.9 [facility] [address] [place] [address] 97196- 2627 Apr, Generalized anxiety disorder F41.1 and Major depressive disorder, recurrent episode with anxious distress F33.9 [facility] [id number] [place] [address] 92740- 3904 Apr, Recent urinary tract infection Z87.440 [facility] [id number] [place] [address] 03042- 2643 Mar, [facility] [address] [place] [address] 16092 -0291 Mar, Dysuria R30.0 ; Acute cystitis without hematuria N30.00 and BMI 40.0-44.9, adult Z68.41 [facility] [address] [place] [address] 09429- 1752 Mar, [facility] [id number] [place] [address] 83209- 3980 Mar, [facility] [id number] [place] [address] 98245- 5157 Mar, Generalized anxiety disorder F41.1 and Major depressive disorder, recurrent episode with anxious distress F33.9 [facility] [address] [address]- 4032 Feb, Conjunctivitis, bacterial H10.9 [facility] [id number] [place] [address] 75223- 6948 Feb, [facility] [id number] [place] [address] 77582 -8362 15 Feb, 2017 Conjunctivitis, bacterial H10.9 [facility] [id number] [place] [address] 90736- 6317 Feb, [facility] [id number] [place] [address] 71848 -5892 Feb, Dysuria R30.0 ; Acute cystitis N30.00 and BMI 40.0-44.9, adult Z68.41 [facility] [id number] [place] [address] 93631- 4096 Feb, [facility] [address] 03962- 5669 Feb, Generalized anxiety disorder F41.1 and Major depressive disorder, recurrent episode with anxious distress F33.9 [facility] [address] 70815- 0985 Feb, Mood disorder F39 and BMI 40.0-44.9, adult Z68.41 [facility] [address] 59337- 4587 Jan, [facility] [id number] [place] [address] 75443- 7151 Jan, [facility] [address] 65910- 1481 Jan, Hypothyroid E03.9 [facility] [id number] [place] [address] 58142- 8190 Jan, [facility] [id number] [place] [address] 94808- 4492 Jan, Chronic kidney disease, unspecified N18.9 ; Hypokalemia E87.6 ; Essential (primary) hypertension I10 ; Fibromyalgia M79.7 ; Coronary artery disease involving pala coronary artery of pala heart, angina presence unspecified I25.10 ; Hypothyroid E03.9 and Encounter for immunization Z23 [facility] [id number] [place] [address] 27655- 1049 Jan, Hypothyroid E03.9 [facility] [address] 15032- 0533 Jan, [facility] [address] [address]- 6765 28 Dec, 2016 Vitamin D deficiency E55.9 [facility] [address] [place] [address] 23106- 9614 28 Dec, 2016 Primary osteoarthritis of left knee M17.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 [facility] [id number] [place] [address] 46435- 6822 19 Dec, 2016 Fibromyalgia M79.7 [facility] [id number] [place] [address] 22147- 1864 18 Dec, 2016 Mood disorder F39 [facility] [id number] [place] [address] 84071- 1398 13 Dec, 2016 [facility] [id number] [place] [address] 92575- 6073 13 Dec, 2016 Generalized anxiety disorder F41.1 and Major depressive disorder, recurrent episode with anxious distress F33.9 [facility] [id number] [place] [address] 75716- 3711 11 Dec, 2016 [facility] [id number] [place] [address] 75001- 2030 08 Dec, 2016 Streptococcal meningitis G00.2 [facility] [address] [place] [address] 69088- 9882 07 Dec, 2016 Streptococcal meningitis G00.2 [facility] [address] [address]- 2548 07 Dec, 2016 [facility] [id number] [place] [address] 53454- 4163 06 Dec, 2016 Streptococcal meningitis G00.2 [facility] [address] [place] [address] 08857- 5410 Dec, [facility] [id number] [place] [address] 56245- 4333 Dec, Major depressive disorder, recurrent episode with anxious distress F33.9 [facility] [id number] [place] [address] 86461- 8459 Nov, Fever, unspecified fever cause R50.9 [facility] [id number] [place] [address] 11584- 5013 Nov, [facility] [id number] [place] [address] 78569- 5180 Nov, Hypothyroid E03.9 [facility] [id number] [place] [address] 50128- 1162 Nov, Generalized anxiety disorder F41.1 and Major depressive disorder, recurrent episode with anxious distress F33.9 [facility] [id number] [place] [address] 28231- 2918 Nov, [facility] [address] [id number] Oct, Dental examination Z01.20 [facility] [id number] [place] [address] 01425- 9762 Oct, Generalized anxiety disorder F41.1 and Major depressive disorder, recurrent episode with anxious distress F33.9 [facility] [address] [place] [address] 65023- 9104 Oct, Chronic kidney disease, stage 4 (severe) N18.4 [facility] [id number] [place] [address] 99647- 3926 Oct, [facility] [id number] [place] [address] 40870- 4864 Oct, Fibromyalgia M79.7 [facility] [id number] [place] [address] 26925- 6894 Oct, [facility] [address] [place] [address] 34455- 2899 Oct, Generalized anxiety disorder F41.1 ; Major depressive disorder, recurrent episode with anxious distress F33.9 and Bipolar disorder, current episode manic without psychotic features F31.10 [facility] [address] [address]- 5319 Sep, [facility] [address] [address]- 5027 Sep, [facility] [address] [place] [address] 41442- 4850 15 Sep, 2016 Vitamin D deficiency E55.9 [facility] [address] [place] [address] 01694- 5269 14 Sep, 2016 Vitamin D deficiency E55.9 [facility] [id number] [place] [address] 34850- 5395 Sep, [facility] [address] [place] [address] 15211- 1361 Sep, Chronic kidney disease, stage 4 (severe) N18.4 ; Hypothyroid E03.9 ; Restless leg G25.81 ; Fibromyalgia M79.7 ; Essential ( primary) hypertension I10 ; Vitamin D deficiency E55.9 ; Dyspepsia R10.13 ; Anemia in chronic kidney disease D63.1 ; Chronic kidney disease, unspecified N18.9 ; Coronary artery disease involving pala coronary artery of pala heart , angina presence unspecified I25.10 ; Screening breast examination Z12.39 and Low back pain M54.5 [facility] [address] [address]- 0328 August, Generalized anxiety disorder F41.1 and Major depressive disorder, recurrent episode with anxious distress F33.9 [facility] [address] [address]- 6260 August, Generalized anxiety disorder F41.1 and Major depressive disorder, recurrent episode with anxious distress F33.9 [facility] [address] [place] [address] 62748- 6642 August, Fibromyalgia M79.7 [facility] [id number] [place] [address] 63033- 3515 Jul, Generalized anxiety disorder F41.1 and Major depressive disorder, recurrent episode with anxious distress F33.9 [facility] [id number] [place] [address] 54056- 1453 Jul, Fibromyalgia M79.7 [facility] [id number] [place] [address] 68082- 1635 Jul, Generalized anxiety disorder F41.1 [facility] [id number] [place] [address] 34204- 1981 May, [facility] [id number] [place] [address] 64020- 3680 May, Hypothyroid E03.9 [facility] [id number] [place] [address] 34627- 5342 May, Chronic kidney disease, stage 4 (severe) N18.4 ; Hypothyroid E03.9 ; Restless leg G25.81 ; Fibromyalgia M79.7 ; Essential ( primary) hypertension I10 ; Vitamin D deficiency E55.9 ; Dyspepsia R10.13 ; Acute non-recurrent maxillary sinusitis J01.00 ; Anemia in chronic kidney disease D63.1 ; Chronic kidney disease, unspecified N18.9 and Coronary artery disease involving pala coronary artery of pala heart, angina presence unspecified I25.10 [facility] [address] [place] [address] 55686- 2973 May, Vitamin D deficiency, unspecified E55.9 [facility] [address] [place] [address] 09399- 3047 May, Generalized anxiety disorder F41.1 and Major depressive disorder, recurrent episode with anxious distress F33.9 [facility] [id number] [place] [address] 69801- 0428 Apr, Pain in right knee M25.561 and Pain in left knee M25.562 [facility] [id number] [place] [address] 66802- 5728 Apr, [facility] [address] [address]- 6812 Apr, [facility] [id number] [place] [address] 53562- 8706 Apr, [facility] [id number] [place] [address] 45518- 4451 Mar, Generalized anxiety disorder F41.1 and Major depressive disorder, recurrent episode with anxious distress F33.9 [facility] [id number] [place] [address] 18539- 5058 Mar, Generalized anxiety disorder F41.1 and Major depressive disorder, recurrent episode with anxious distress F33.9 [facility] [id number] [place] [address] 64151- 6549 Mar, [facility] [id number] [place] [address] 07359- 0076 Mar, [facility] [id number] [place] [address] 10801- 9352 Mar, [facility] [id number] [place] [address] 07256- 3014 Mar, Asthma J45.909 and Fibromyalgia M79.7 [facility] [id number] [place] [address] 37177- 3484 Mar, Chronic kidney disease, stage 4 (severe) N18.4 ; Vitamin D deficiency E55.9 and Essential (primary) hypertension I10 [facility] [address] [place] [address] 15349- 0345 Feb, [facility] [id number] [place] [address] 27728- 9307 Feb, Dysuria R30.0 ; Mixed stress and urge urinary incontinence N39.46 ; Fibromyalgia M79.7 and Chronic kidney disease, stage IV (severe) N18.4 [facility] [id number] [place] [address] 80706- 6308 Feb, Chronic kidney disease, stage 4 (severe) N18.4 [facility] [id number] [place] [address] 16182- 8296 Feb, Chronic kidney disease, stage 4 (severe) N18.4 [facility] [id number] [place] [address] 25033- 3115 Feb, [facility] [id number] [place] [address] 10139- 7379 Feb, Vitamin D deficiency, unspecified E55.9 [facility] [id number] [place] [address] 99667- 0672 Jan, [facility] [id number] [place] [address] 46296- 9892 Jan, [facility] [id number] [place] [address] 03357- 1195 Dec, [facility] [id number] [place] [address] 76077- 9026 Dec, Chronic kidney disease, stage 4 (severe) N18.4 [facility] [id number] [place] [address] 32093- 0226 Dec, Dysthymic disorder F34.1 and Generalized anxiety disorder F41.1 [facility] [id number] [place] [address] 04448- 7309 Dec, [facility] [id number] [place] [address] 22323- 4879 Dec, [facility] [id number] [place] [address] 06829- 4777 08 Dec, 2015 Dysthymic disorder F34.1 and Generalized anxiety disorder F41.1 [facility] [id number] [place] [address] 22452- 7038 08 Dec, 2015 Dysuria R30.0 ; Chronic kidney disease, stage 4 (severe) N18.4 ; Hypertension I10 ; Dyspepsia R10.13 ; Yeast dermatitis B37.2 ; Palpitations R00.2 ; Hypothyroid E03.9 ; Functional 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 and Other seasonal allergic rhinitis J30.2 [facility] [address] 18569 -4102 Dec, [facility] [address] 54147 -0992 Nov, Dysuria R30.0 and Stress incontinence N39.3 [facility] [address] 71606- 6544 Nov, [facility] [address] 55974- 3905 Nov, [facility] [address] 15260- 6142 Nov, Osteoarthritis of knees, bilateral M17.0 [facility] [address] 43863- 2782 Nov, Dysthymic disorder F34.1 and Generalized anxiety disorder F41.1 [facility] [address] 15706- 2776 Nov, [facility] [address] 05916- 5092 Nov, [facility] [address] 95558- 4649 Nov, Urgency of urination R39.15 [facility] [address] 29603- 0828 Nov, [facility] [address] 87176- 1426 Nov, Chronic kidney disease, stage 4 (severe) N18.4 [facility] [address] 79776- 0414 Oct, Hypertension I10 ; Coronary artery disease involving pala coronary artery of pala heart, angina presence unspecified I25.10 ; Palpitations R00.2 ; Hypothyroid E03.9 ; Right foot pain M79.671 ; Functional 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 and Other seasonal allergic rhinitis J30.2 [facility] [id number] [place] [address] 46354- 7563 Oct, Dysthymic disorder F34.1 and Generalized anxiety disorder F41.1 [facility] [address] 59633- 3156 Sep, [facility] [id number] [place] [address] 77468- 8572 Sep, [facility] [address] 10021- 5592 Sep, [facility] [address] 91168- 7271 Sep, [facility] [address] 19354- 2557 Sep, [facility] [id number] [place] [address] 36161- 6883 Sep, Dysthymic disorder F34.1 and Generalized anxiety disorder F41.1 [facility] [id number] [place] [address] 90668- 0268 Sep, Asthma with acute exacerbation in adult J45.901 ; Dysuria R30.0 ; Chronic kidney disease, stage 4 (severe) N18.4 and History of anemia Z86.2 [facility] [id number] [place] [address] 94553- 1853 Sep, Generalized anxiety disorder F41.1 and Dysthymic disorder F34.1 [facility] [id number] [place] [address] 01066- 7690 August, Screening breast examination Z12.39 and Acute recurrent maxillary sinusitis J01.01 [facility] [address] 98257- 1939 August, Osteoarthritis of knees, bilateral M17.0 [facility] [id number] [place] [address] 47197- 5026 August, Chronic kidney disease, stage 4 (severe) N18.4 ; Acute non- recurrent maxillary sinusitis J01.00 ; Urinary problem R39.89 ; Bowel habit changes R19.4 ; Functional 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 and History of colon polyps Z86.010 [facility] [id number] [place] [address] 00116- 1807 Jul, Dysthymic disorder F34.1 and Generalized anxiety disorder F41.1 [place] [address] 16694- 6471 Jul, [place] [address] [place] [id number] [place] [address] 16746- 6900 Jul, Dysthymic disorder F34.1 ; Generalized anxiety disorder F41.1 and nursing home use of drug Z79.899 [place] [address] [id number] [place] [address] 41868- 7369 Jul, [place] [address] 24055- 9664 Jun, [place] [id number] [place] [address] 30981- 3010 Jun, [place] [id number] [place] [address] 89214- 5091 May, [place] [id number] [place] [address] 52748- 9263 May, Dysthymic disorder F34.1 and Generalized anxiety disorder F41.1 [place] [id number] [place] [address] 74637- 4988 Apr, Kidney disease N28.9 [place] [id number] [place] [address] 11360- 0490 Apr, Generalized anxiety disorder F41.1 and Dysthymic disorder F34.1 [place] [id number] [place] [address] 83826- 5425 Apr, Chronic kidney disease, stage 4 (severe) N18.4 [place] [id number] [place] [address] 47314- 5460 Apr, Generalized anxiety disorder F41.1 ; Major depression, recurrent F33.9 and Sleep disturbance G47.9 [place] [address] 54316- 4532 Mar, Generalized anxiety disorder F41.1 and Dysthymic disorder F34.1 [place] [address] 05628- 9393 Mar, Generalized anxiety disorder F41.1 ; Dysthymic disorder F34.1 and Insomnia G47.00 [place] [address] 47965- 0331 Mar, [place] [address] 44587- 7546 Mar, [address] 82371- 5192 Mar, Osteoarthritis of knees, bilateral M17.0 [place] [address] [id number] [place] [address] 34171- 1465 Mar, Hypertension I10 ; Hypothyroid E03.9 ; Dysthymic disorder F34.1 ; Chronic kidney disease, stage 4 (severe) N18.4 and Nausea & vomiting R11.2 [place] [id number] [place] [address] 47061- 0159 Mar, Generalized anxiety disorder F41.1 ; Dysthymic disorder F34.1 and Insomnia G47.00 [place] [id number] [place] [address] 63520- 8945 Mar, Dehydration E86.0 ; Chronic kidney disease, stage 4 (severe ) N18.4 and Nausea & vomiting R11.2 [facility] [address] [address] Mar, Gastroenteritis K52.9 [facility] [address] [id number] [place] [address] 17044- 5288 Mar, [facility] [id number] [place] [address] 48989- 7182 Mar, [facility] [id number] [place] [address] 58149- 4983 Feb, Dysthymic disorder F34.1 and Generalized anxiety disorder F41.1 [place] [id number] [place] [address] 29753- 2617 Jan, UTI (urinary tract infection) N39.0 ; Asthma J45.909 ; Coronary artery disease involving pala coronary artery of pala heart, angina presence unspecified I25.10 ; Hypertension I10 ; Hypothyroid E03.9 ; Vitamin D deficiency E55.9 ; Insomnia G47.00 ; Palpitations R00.2 ; Depressed F32.9 ; Restless leg G25.81 and Anxiety F41.9 [facility] [address] [id number] [place] [address] 23579- 4420 Jan, Dysthymic disorder F34.1 and Generalized anxiety disorder F41.1 [place] [id number] [place] [address] 05877- 8502 Jan, [place] [address] [id number] [place] [address] 24150- 8555 Dec, [place] [id number] [place] [address] 41557- 3884 Dec, Alkalosis 276.3 ; Chronic kidney disease, 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.4 ; Hyperpotassemia 276.7 ; Secondary hyperparathyroidism, renal 588.81 ; Proteinuria 791.0 ; Unspecified vitamin D deficiency 268.9 ; Anemia in chronic kidney disease 285.21 ; Other and unspecified hyperlipidemia 272.4 ; Hypertension, essential, benign 401.1 and Chronic kidney disease (CKD), stage III (moderate) 585.3 [place] [address] [address]- 4615 Dec, [place] [address] [id number] [place] [address] 36467- 1026 Dec, Depressive disorder, not elsewhere classified 311 and Generalized anxiety disorder 300.02 [place] [id number] [place] [address] 85459- 3359 Dec, [place] [id number] [place] [address] 72966- 4055 Dec, [place] [id number] [place] [address] 99632- 1672 Nov, Depressive disorder, not elsewhere classified 311 and Generalized anxiety disorder 300.02 [place] [id number] [place] [address] 11685- 4263 Nov, Arthritis of both knees 716.96 [place] [id number] [place] [address] 60168- 7525 Nov, PAF (paroxysmal atrial fibrillation) 427.31 ; CAD (coronary artery disease) 414.00 ; Chest pain 786.50 and Chronic kidney disease (CKD) stage G4/A1, severely decreased glomerular filtration rate (GFR) between 15-29 mL/min/1.73 square meter and albuminuria creatinine ratio less than 30 mg/g 585.4 [place] [id number] [place] [address] 56653- 6219 Oct, Coronary atherosclerosis of unspecified type of vessel, pala or graft 414.00 ; Chronic kidney disease, 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.4 ; Hypertension 401.9 and Edema 782.3 [place] [id number] [place] [address] 41951- 6460 Oct, Depressive disorder, not elsewhere classified 311 and Generalized anxiety disorder 300.02 [place] [id number] [place] [address] 32845- 1973 Oct, Depressive disorder, not elsewhere classified 311 and Generalized anxiety disorder 300.02 [facility] [id number] [place] [address] 62983- 5238 Oct, [facility] [address] [id number] [place] [address] 10320- 5574 Oct, [facility] [address] [id number] [place] [address] 02761- 0356 Sep, [facility] [id number] [place] [address] 64299- 9881 Sep, Chronic kidney disease, 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.4 [place] [address] 46661- 7846 Sep, [facility] [id number] [place] [address] 45783- 7273 Sep, Coronary atherosclerosis of unspecified type of vessel, pala or graft 414.00 ; Hypertension 401.9 ; Edema 782.3 and Hypothyroidism 244.9 [facility] [address] [address] [id number] [place] [address] 69345- 1842 Sep, Coronary atherosclerosis of unspecified type of vessel, pala or graft 414.00 ; Hypertension 401.9 ; Fibromyalgia 729.1 ; Edema 782.3 ; Hypothyroidism 244.9 and Anemia 285.9 [place] [id number] [place] [address] 23298- 4173 Sep, Anxiety disorder, unspecified 300.00 and Depressive disorder , not elsewhere classified 311 [facility] [id number] [place] [address] 93706- 0158 Sep, [facility] [address] [place] [address] [id number] [place] [address] 00226- 6406 August, Generalized anxiety disorder 300.02 [facility] [address] [id number] [place] [address] 45133- 2592 August, Closed fracture of lateral malleolus 824.2 [facility] [address] [place] [address] [id number] [place] [address] 42466- 2546 14 Jul, 2014 [facility] [place] [facility] [address] [id number] [place] [address]- 1030 Jul, [facility] [place] [facility] [address] [id number] [place] [address]- 7196 Jun, [facility] [place] [facility] [address] [facility] [id number] [place] [address]- 3021 Jun, [facility] [place] [facility] [address] [id number] [place] [address]- 0981 Jun, [facility] [place] [facility] [address] [id number] [place] [address]- 1761 Jun, [facility] [place] [facility] [address] [facility] [id number] [place] [address]- 3099 Jun, [facility] [place] [facility] [address] [facility]] [id number] [place] [address]- 5194 Jun, [facility] [place] [facility] [address] [facility]] [id number] [place] [address]- 1158 May, [facility] [place] [facility] [address] [facility]] [id number] [place] [address]- 7200 May, 2014 [facility] [place] [facility] [address] [facility]] [id number] [address]- 3267 18 May, 2014 [facility] [place] [facility] [address] [facility] [id number] [address]- 7012 18 May, 2014 [facility] [place] [facility] [address] [facility]] [id number] [place] [address]- 6246 16 May, 2014 [facility] [place] [facility] [address] [facility] [id number] [place] 3942 16 May, 2014 [facility] [place] [facility] [address] [facility]] [id number] [address]- 3261 13 May, 2014 [facility] [place] [facility] [address] [facility]] [id number] [address]- 4842 13 May, 2014 [facility] [place] [facility] [address] [id number] [place] [address]- 4128 10 May, 2014 [facility] [place] [facility] [address] [id number] [place] [address]- 9386 10 May, 2014 [facility] [place] [facility] [address] [id number] [place] [address]- 4390 Apr, [facility] [place] [facility] [address] [id number] [place] [address]- 9998 Apr, [facility] [place] [facility] [address] [id number] [place] [address]- 3381 Mar, [facility] [place] [facility] [address] [id number] [place] [address]- 6133 Mar, [facility] [place] [facility] [address] [id number] [place] [address]- 5202 Mar, [facility] [place] [facility] [address] [id number] [place] [address]- 0675 Mar, [facility] [place] [facility] [address] [id number] [place] [address]- 0680 Mar, [facility] [place] [facility] [address] [id number] [place] [address]- 8785 Mar, [facility] [place] [facility] [address] [id number] [place] [address]- 0798 Mar, [facility] [place] [facility] [address] [id number] [place] [address]- 8802 Feb, [facility] [place] [facility] [address] [id number] [place] [address]- 4536 Feb, [facility] [place] [facility] [address] [id number] [place] [address]- 3133 Feb, [facility] [place] [facility] [address] [id number] [place] 5320 Jan, [facility] [place] [facility] [address] [id number] [place] [address]- 9979 Jan, [facility] [place] [facility] [address] [id number] [place] [address]- 5682 Jan, [facility] [place] [facility] [address] [id number] [place] [address]- 5361 Jan, [facility] [place] [facility] [address] [id number] [place] [address]- 9774 Jan, [facility] [place] [facility] [address] [id number] [place] [address]- 9928 Jan, [facility] [place] [facility] [address] [id number] [place] [address]- 5535 Jan, [facility] [place] [facility] [address] [id number] [place] [address]- 2968 Jan, [facility] [place] [facility] [address] [id number] [place] [address]- 4623 Jan, [facility] [place] [facility] [address] [id number] [place] [address]- 8036 Jan, [facility] [place] [facility] [address] [id number] [place] [address]- 5278 Nov, [facility] [place] [facility] [address] [id number] [place] [address]- 8693 Nov, [facility] [place] [facility] [address] [id number] [place] [address]- 8759 Nov, [facility] [place] [facility] [address] [id number] [place] [address]- 7320 Oct, [facility] [place] [facility] [address] [id number] [place] [address]- 2401 Oct, [facility] [place] [facility] [address] [id number] [place] [address]- 9761 Oct, [facility] [place] [facility] [address] [id number] [place] [address]- 0602 Oct, [facility] [place] [facility] [address] [id number] [place] [address]- 6450 Oct, [facility] [place] [facility] [address] [id number] [place] [address]- 6350 Oct, [facility] [place] [facility] [address] [id number] [place] 0345 Oct, [facility] [place] [facility] [address] [id number] [place] [address]- 7960 Oct, [facility] [place] [facility] [address] [id number] [place] [address]- 2231 Oct, [facility] [place] [facility] [address] [id number] [place] [address]- 4232 Sep, [facility] [place] [facility] [address] [id number] [place] [address]- 8400 Sep, [facility] [place] [facility] [address] [id number] [place] [address]- 7970 Sep, [facility] [place] [facility] [address] [id number] [place] [address]- 1737 Sep, [facility] [place] [facility] [address] [id number] [place] [address]- 9669 Sep, [facility] [place] [facility] [address] [id number] [place] [address]- 8116 Sep, [facility] [place] [facility] [address] [id number] [place] [address]- 4168 Sep, [facility] [place] [facility] [address] [id number] [place] [address]- 9445 Sep, [facility] [place] [facility] [address] [id number] [place] [address]- 6976 Sep, [facility] [place] [facility] [address] [id number] [place] [address]- 2680 August, [facility] [place] [facility] [address] [id number] [place] [address]- 0560 August, [facility] [place] [facility] [address] [id number] [place] [address]- 4721 August, [facility] [place] [facility] [address] [id number] [place] [address]- 6063 August, [facility] [place] [facility] [address] [id number] [place] [address]- 0374 August, [facility] [place] [facility] [address] [id number] [place] [address]- 2404 August, [facility] [place] [facility] [address] [id number] [place] [address]- 0966 Jul, [facility] [place] [facility] [address] [id number] [place] [address]- 5847 Jul, [facility] [place] [facility] [address] [id number] [place] [address]- 6986 Jul, [facility] [place] [facility] [address] [id number] [place] [address]- 4891 Jul, [facility] [place] [facility] [address] [id number] [place] [address]- 0452 Jul, [facility] [place] [facility] [address] [id number] [place] [address]- 7856 Jul, [facility] [place] [facility] [address] [id number] [place] [address]- 8311 Jun, [facility] [place] [facility] [address] [id number] [address]- 8359 Jun, [facility] [place] [facility] [address] [id number] [place] [address]- 0912 May, [facility] [place] [facility] [address] [id number] [place] [address]- 6164 May, [facility] [place] [facility] [address] [id number] [place] [address]- 9132 May, [facility] [place] [facility] [address] [id number] [place] [address]- 5323 10 May, 2013 [facility] [address] [id number] [place] [address]- 2296 Apr, [facility] [address] [id number] [place] [address]- 2297 Apr, [facility] [address] [id number] [place] [address]- 7702 18 Mar, 2013 [facility] [address] [id number] [place] [address]- 3960 18 Mar, 2013 [facility] [address] [id number] [place] [address]- 7448 Mar, [facility] [address] [facility] [id number] [place] [address]- 8169 Mar, [facility] [address] [facility]] [id number] [place] [address]- 0267 Mar, [facility] [address] [facility]] [id number] [place] [address]- 8081 05 Mar, 2013 [facility] [address] [facility]] [id number] [place] [address]- 2702 Feb, [facility] [address] [facility]] [id number] [place] [address]- 9965 Feb, [facility] [address] [id number] [place] [address]- 4339 14 Feb, 2013 [facility] [address] [facility]] [id number] [place] [address]- 0953 14 Feb, 2013 [facility] [place] [facility] [address] [id number] [place] [address]- 8091 05 Feb, 2013 [facility] [place] [facility] [address] [facility]] [id number] [place] [address]- 1676 05 Feb, 2013 [facility] [address] [facility] 3] [id number] [place] [address]- 8778 Jan, [facility] [place] [facility] [address] [id number] [place] [address]- 8578 Jan, [facility] [place] [facility] [address] [id number] [place] [address]- 3921 Jan, [facility] [place] [facility] [address] [id number] [place] [address]- 9827 Jan, [facility] [place] [facility] [address] [id number] [place] [address]- 9607 Jan, [facility] [place] [facility] [address] [id number] [place] [address]- 7801 Jan, [facility] [place] [facility] [address] [id number] [place] [address]- 3605 Dec, [facility] [place] [facility] [address] [id number] [place] [address]- 2883 Dec, [facility] [place] [facility] [address] [id number] [place] [address]- 5026 Nov, [facility] [place] [facility] [address] [id number] [place] [address]- 9130 Nov, [facility] [place] [facility] [address] [id number] [place] [address]- 1456 Oct, [facility] [place] [facility] [address] [id number] [place] [address]- 1066 Oct, [facility] [place] [facility] [address] [id number] [place] [address]- 6500 Oct, [facility] [place] [facility] [address] [id number] [place] [address]- 0043 Oct, [facility] [place] [facility] [address] [id number] [place] [address]- 7240 Oct, [facility] [place] [facility] [address] [id number] [place] [address]- 3281 Oct, [facility] [place] [facility] [address] [id number] [place] [address]- 6598 Sep, [facility] [address] [id number] [place] [address]- 1028 Sep, [facility] [address] [id number] [place] [address]- 4712 Sep, [facility] [address] [id number] [place] [address]- 8710 Sep, [facility] [address] [id number] [place] [address]- 5674 August, [facility] [address] [id number] [place] [address]- 2870 August, [facility] [address] [id number] [place] [address]- 6455 August, [facility] [address] [id number] [place] [address]- 1270 August, [facility] [address] [id number] [place] [address]- 0338 August, [facility] [address] [id number] [place] [address]- 8702 Jul, [facility] [place] [facility] [address] [id number] [place] [address]- 4160 Jul, [facility] [address] [id number] [place] [address]- 4948 Jul, [facility] [place] [facility] [address] [id number] [place] [address]- 1967 Jul, [facility] [place] [facility] [address] [id number] [place] [address]- 8185 Jul, [facility] [place] [facility] [address] [id number] [place] [address]- 7954 Jul, [facility] [place] [facility] [address] [id number] [place] [address]- 7605 Jul, [facility] [place] [facility] [address] [id number] [place] [address] 2016 Jul, [facility] [address] [facility][NOTE 3] [id number] [place] [address] Jul, [facility] [address] [facility][NOTE 3] [id number] [place] [address] Jul, [facility] [address] [facility] [id number] [id number] Jun, [facility] [address] [facility][NOTE 3] [id number] [place] [address] Jun, [facility] [address] [facility][NOTE 3] [id number] [place] [address] Jun, [facility] [address] [id number] [place] [address] Jun, [facility] [address] [id number] [place] [address] Jun, [facility] [address] [id number] [place] [address] May, [facility] [address] [id number] [place] [address] May, [facility] [address] [facility][NOTE 3] [id number] [place] [address] May, [facility] [address] [facility][NOTE 3] [id number] [place] [address] Apr, [facility] [address] [facility][NOTE 3] [id number] [place] [address] Apr, [facility] [address] [facility][NOTE 3] [id number] [place] [address] Apr, [facility] [address] [facility][NOTE 3] [id number] [place] [address] Apr, [facility] [address] [facility][NOTE 3] [id number] [place] [address] Apr, [facility] [place] [facility] [address] [id number] [place] [address] Apr, [facility] [place] [facility] [address] [id number] [place] [address] Mar, [facility] [place] [facility] [address] [id number] [place] [address] Mar, [facility] [place] [facility] [address] [id number] [place] [address] Mar, [facility] [place] [facility] [address] [id number] [place] [address]092 Mar, [facility] [place] [facility] [address] [id number] [place] [address] Feb, [facility] [place] [facility] [address] [id number] [place] [address] Feb, [facility] [place] [facility] [address] [id number] [place] [address] 4748 Feb, [facility] [place] [facility] [address] [id number] [place] [address] Feb, [facility] [place] [facility] [address] [id number] [place] [address] Feb, [facility] [place] [facility] [address] [id number] [place] [address] Feb, [facility] [place] [facility] [address] [id number] [place] [address] Feb, [facility] [place] [facility] [address] [id number] [place] [address] Feb, [facility] [place] [facility] [address] [id number] [place] [address] Feb, [facility] [place] [facility] [address] [id number] [place] [address] Feb, [facility] [place] [facility] [address] [id number] [place] [address] Feb, [facility] [place] [facility] [address] [id number] [place] [address] Feb, [facility] [place] [facility] [address] [facility][NOTE 3] [id number] [place] [address] Feb, [facility] [place] [facility] [address] [facility][NOTE 3] [id number] [place] [address] Feb, [facility] [place] [facility] [address] [facility][NOTE 3] [id number] [place] [address] Feb, [facility] [place] [facility] [address] [facility][NOTE 3] [id number] [place] [address], [place] [address] Feb, [facility] [place] [facility] [address] [facility][NOTE 3] [id number] [place] [address] Jan, [facility] [place] [facility] [id number] [place] [address] 8316 Jan, [facility] [place] [facility] [address] [facility][NOTE 3] [id number] [place] [address] 279[address] 31 Jan, 2012 [facility] [place] [facility] [address] [id number] [address] 31 Jan, 2012 [facility] [place] [facility] [address] [facility][NOTE 3] [id number] [place] [address] 9290 30 Jan, 2012 [facility] [place] [facility] [address] [facility][NOTE 3] [id number] [place] [address] Jan, [facility] [place] [facility] [address] [facility][NOTE 3] [id number] [place] [address] 25 Jan, 2012 [facility] [place] [facility] [address] [facility][NOTE 3] [id number] [place] [address] 16 Jan, 2012 [facility] [place] [facility] [address] [facility][NOTE 3] [id number] [place] [address]- 7745 16 Jan, 2012 [facility] [place] [facility] [address] [id number] [address] 15 Jan, 2012 [facility] [place] [facility] [address] [id number] [place] [address]- 9490 15 Jan, 2012 [facility] [place] [facility] [address] [id number] [place] [address]- 7846 01 Jan, 2012 [facility] [place] [facility] [address] [id number] [place] [address] 2546 26 Sep, 2011 [facility] [place] [facility] [address] [id number] [place] [address] 2546 26 Sep, 2011 [facility] [place] [facility] [address] [id number] [place] [address] 2540 24 Sep, 2011 [facility] [place] [facility] [address] [id number] [place] [address]- 2786 23 Dec, 2011 [facility] [place] [facility] [address] [id number] [place] [address]- 8861 22 Dec, 2011 [facility] [place] [facility] [address] [id number] [place] [address]- 9465 21 Dec, 2011 [facility] [place] [facility] [address] [id number] [place] [address] 2547 20 Dec, 2011 [facility] [place] [facility] [address] [id number] [place] [address] 2542 20 Dec, 2011 [facility] [place] [facility] [address] [id number] [place] [address] 2549 07 Dec, 2011 [facility] [place] [facility] [address] [id number] [place] [address] 2546 06 Sep, 2011 [facility] [place] [facility] [address] [id number] [place] [address] 2546 06 Sep, 2011 [facility] [place] [facility] [address] [id number] [place] [address] 2546 05 Sep, 2011 [facility] [place] [facility] [address] [id number] [place] [address] 2544 23 Nov, 2011 [facility] [place] [facility] [address] [id number] [place] [address]- 4870 Nov, [facility] [place] [facility] [address] [id number] [place] [address]- 8364 Nov, [facility] [place] [facility] [address] [id number] [place] [address]- 7810 Nov, [facility] [place] [facility] [address] [id number] [place] [address]- 4581 Nov, [facility] [place] [facility] [address] [id number] [place] [address]- 8220 Nov, [facility] [place] [facility] [address] [id number] [place] [address]- 0905 Nov, [facility] [place] [facility] [address] [id number] [place] [address]- 9075 Nov, [facility] [place] [facility] [address] [id number] [place] [address]- 7115 Oct, [facility] [place] [facility] [address] [id number] [place] [address]- 7403 Oct, [facility] [place] [facility] [address] [id number] [place] [address]- 8434 Oct, [facility] [place] [facility] [address] [id number] [place] [address]- 2097 Oct, [facility] [place] [facility] [address] [id number] [place] [address]- 6458 Oct, [facility] [place] [facility] [address] [id number] [place] [address]- 2046 Oct, [facility] [place] [facility] [address] [id number] [place] [address]- 9312 Oct, [facility] [place] [facility] [address] [id number] [place] [address]- 4264 Sep, [facility] [place] [facility] [address] [id number] [place] [address]- 5223 Sep, [facility] [place] [facility] [address] [id number] [place] [address]- 1197 August, [facility] [address] [id number] [place] [address]- 3094 August, [facility] [place] [facility] [address] [id number] [place] [address]- 0036 August, [facility] [address] [id number] [place] [address]- 2626 August, [facility] [place] [facility] [address] [id number] [place] [address]- 3900 Jul, [facility] [place] [facility] [address] [id number] [place] [address]- 4861 Jul, [facility] [place] [facility] [address] [id number] [place] [address]- 1529 Jul, [facility] [address] [id number] [place] [address]- 0592 Jul, [facility] [place] [facility] [address] [id number] [place] [address]- 2361 Jul, [facility] [place] [facility] [address] [id number] [place] [address]- 2377 Jul, [facility] [place] [facility] [address] [id number] [place] [address]- 1243 Jul, [facility] [place] [facility] [address] [id number] [place] [address]- 7472 Jul, [facility] [place] [facility] [address] [id number] [place] [address]- 3610 Jul, [facility] [place] [facility] [address] [id number] [place] [address]- 1473 Jun, [facility] [place] [facility] [address] [id number] [place] [address]- 4296 Jun, [facility] [place] [facility] [address] [id number] [place] [address]- 5710 Jun, [facility] [place] [facility] [address] [id number] [place] [address]- 5950 14 Jun, 2011 [facility] [place] [facility] [address] [id number] [place] [address]- 6730 Jun, [facility] [place] [facility] [address] [id number] [place] [address]- 1529 Jun, [facility] [place] [facility] [address] [id number] [place] [address]- 0632 Jun, [facility] [address] [id number] [place] [address]- 6882 May, [facility] [place] [facility] [address] [id number] [place] [address]- 9234 May, [facility] [address] [id number] [place] [address]- 4759 May, [facility] [place] [facility] [address] [id number] [place] [address]- 5530 May, [facility] [place] [facility] [address] [id number] [place] [address]- 8037 May, [facility] [place] [facility] [address] [id number] [place] [address]- 4671 Apr, [facility] [place] [facility] [address] [id number] [place] [address]- 1133 Apr, [facility] [place] [facility] [address] [id number] [place] [address]- 4711 Apr, [facility] [place] [facility] [address] [id number] [place] [address]- 1958 Apr, [facility] [place] [facility] [address] [id number] [place] [address]- 8213 Apr, [facility] [place] [facility] [address] [id number] [place] [address]- 5766 Mar, [facility] [place] [facility] [address] [id number] [place] [address]- 5302 Mar, [facility] [place] [facility] [address] [id number] [place] [address]- 1192 Mar, [facility] [place] [facility] [address] [id number] [place] [address] Mar, [facility] [place] [facility] [address] [id number] [place] 8510 Mar, [facility] [place] [facility] [address] [id number] [place] [address]- 9602 Mar, [facility] [place] [facility] [address] [id number] [place] 7060 Mar, [facility] [place] [facility] [address] [id number] [place] [address]- 9458 Feb, [facility] [place] [facility] [address] [id number] [place] [address]- 8761 Feb, [facility] [place] [facility] [address] [id number] [place] [address]- 1781 Feb, [facility] [place] [facility] [address] [id number] [place] [address]- 7316 Feb, [facility] [place] [facility] [address] [id number] [place] [address]- 5626 Jan, [facility] [place] [facility] [address] [id number] [place] [address]- 4711 Jan, [facility] [place] [facility] [address] [id number] [place] [address]- 9880 Jan, [facility] [place] [facility] [address] [id number] [place] [address]- 6298 Jan, [facility] [place] [facility] [address] [id number] [place] [address]- 6099 Nov, [facility] [place] [facility] [address] [id number] [place] [address]86 30 Mar, 2010 [facility] [place] [facility] [address] [address] Mar, [facility] [address] [address] Mar, [facility] [address]65[address] [address] 2544 Mar, [facility] [id number] [place] [address] 18[address]- 4481 Mar, [facility] [address] 1171 Mar, [facility] [id number] [place] [address] 212319- 6978 Feb, [facility] [id number] [place] [address] 580790- 7419 Feb, [facility] [id number] [place] [address] [id number]- 2508 Jan, [facility] [address] [address] Jan, [facility] [address] [address] Jan, IMMUNIZATIONS No Known Immunizations SOCIAL HISTORY Never Assessed REASON FOR VISIT Patient reports onset 2 weeks ago "A cold in my eyes," with Sx of B/L eyes puffy from irritation, "they matter shut overnight with yellowish stuff." [facility] Activity Details Follow Up prn Reason: VITAL SIGNS Height 63 in 2017-02-28 Weight 241.6 lbs 2017-02-28 Temperature 98.8 degrees Fahrenheit 2017-02-28 Heart Rate 66 bpm 2017-02-28 Respiratory Rate 20 2017-02-28 BMI 42.79 kg/m2 2017-02-28 Blood pressure systolic 140 mmHg 2017-02-28 Blood pressure diastolic 82 mmHg 2017-02-28 MEDICATIONS Medication Instructions Dosage Frequency Start Date End Date Duration Status Losartan Potassium 100 mg Orally Once a day 1 tablet 24h 30 Active Ferrous Sulfate 325 (65 Fe) MG Orally Once a day 1 tablet 24h Active Synthroid 150 MCG Orally Once a day 1 tablet 24h 30 Active Gemfibrozil 600 MG Orally Twice a day 1 tablet 12h 30 Active Voltaren 1 % Transdermal to knee BID. Max dose 4 grams 2 grams 25 Jan, 2016 8 Active Vitamin D (Ergocalciferol) 29174 UNIT Orally once weekly 1 capsule Active Potassium Chloride ER 10 MEQ TAKE ONE CAPSULE BY MOUTH ONCE DAILY WITH FOOD 30 Active Trazodone HCl 100 MG Orally Once a day 0.5-1 tablet at night as needed for sleep 24h Dec, 30 days Active Polytrim 85429-0.1 UNIT/ML Ophthalmic 3 times a day 1 drop into affected eye 8h Feb, Feb, 07 days Active Toprol XL 50 MG TAKE ONE TABLET BY MOUTH THREE TIMES DAILY 30 Active Norvasc 5 mg Orally Once a day 1 tablet 24h Active Cetirizine HCl 10 MG TAKE ONE TABLET BY MOUTH ONCE DAILY August, 30 Active Protonix 40 mg Orally Once a day 1 tablet 24h 30 Active ProAir HFA 108 (90 Base) MCG/ACT Inhalation every 4 hrs 2 puffs as needed 4h 16 Sep, 2015 Active Furosemide 40 mg Orally Once a day 1 tablet 24h 30 Active Lyrica 150 MG Orally 3 times a day 1 capsule 8h Active Nystatin 810032 UNIT/GM Externally Twice a day 1 application to thighs as needed 12h 19 Sep, 2016 5 Active Vitamin C 1000 MG Orally Once a day 1 tablet 24h Active Fluticasone Propionate 50 MCG/ACT Nasally Once a day USE ONE SPRAY IN EACH NOSTRIL TWICE DAILY 24h Active Fish Oil 1200 MG Orally Once a day 1 capsule 24h 30 days Active Nystatin 393811 UNIT/ML Mouth/Throat Four times a day 4 ml 6h Active Clonazepam 1 MG Orally Twice a day as needed 1 tablet 30 days Active Requip 4 MG Orally do not fill in er Once a day 2 tablets 1 to 3 hours before bedtime 24h 30 Active Fiber Complete - Active Cymbalta 60 MG Orally Once a day 1 capsule 24h 30 days Active Symbicort 80-4.5 MCG/ACT Inhalation Twice a day 2 puffs 12h Mar, Active Trileptal 300 MG Orally one in the morning, and two at night 1 tablet Oct, 30 days Active RESULTS No Results PROCEDURES Procedure Date Ordered Result Body Site [facility] VISIT ESTABLISHED PATIENT Feb 28, 2017 INSTRUCTIONS MEDICATIONS ADMINISTERED No Known [...] Bladder surgery [facility] 03/2016 Hospitalization History Surgeries Only Hospitalization History 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
--- OUTSIDE RECORDS SUMMARY | 2018-05-29 08:13 | XMS REPORT ---
Author Author ISABEL MAE [facility] Address [address] [place] [address] Care Team Providers [employer] Professor Name Role Phone ISABEL MAE Unavailable PROBLEMS Type Condition ICD9-CM Code RPX26-VF Code Onset Dates Condition Status SNOMED Code Problem Long-term use of high-risk medication Z79.899 Active 163147343 Problem Abnormal chest CT R93.8 Active 603812463 Problem Generalized anxiety disorder F41.1 Active 27748433 Problem Low back pain M54.5 Active 188025495 Problem Dysthymic disorder F34.1 Active 33683364 Problem Depressed F32.9 Active 25831161 Problem Coronary artery disease involving napaimute coronary artery of napaimute heart, angina presence unspecified I25.10 Active 1975016413645 Problem Hypothyroid E03.9 Active 14873245 Problem Insomnia G47.00 Active 006621908 Problem Vitamin D deficiency E55.9 Active 77265304 Problem Asthma J45.909 Active 874521582 Problem Chronic kidney disease, unspecified N18.9 Active 625032851 Problem Palpitations R00.2 Active 77717354 Problem Anemia in chronic kidney disease D63.1 Active 121313592693922 Problem Primary osteoarthritis of left knee M17.12 Active 738962053 Problem Bipolar disorder, current episode manic without psychotic features F31.10 Active 551046832 Problem Restless leg syndrome G25.81 Active 74067968 Problem Seasonal allergic rhinitis due to pollen J30.1 Active 09273085 Problem Functional 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 Active 05363783 Problem Chronic kidney disease, stage 4 (severe) N18.4 Active 012085140 Problem Restless leg G25.81 Active 14220372 Problem Mood disorder F39 Active 20445805 Problem Degenerative tear of medial meniscus of left knee M23.204 Active 127514708 Problem Body mass index (BMI) of 40.0-44.9 in adult Z68.41 Active 076842497 Problem Stage 3 chronic kidney disease N18.3 Active 688501871 Problem Asthma with acute exacerbation in adult J45.901 Active 959719382 Problem Other seasonal allergic rhinitis J30.2 Active 463349146 Problem History of colon polyps Z86.010 Active 155220207 Problem History of anemia Z86.2 Active 417871643 Problem Fibromyalgia M79.7 Active 876077456 Problem Essential (primary) hypertension I10 Active 90340093 Problem Hypokalemia E87.6 Active 53457316 Problem Mixed stress and urge urinary incontinence N39.46 Active 176478504 ALLERGIES No Information ENCOUNTERS Encounter Location Date Diagnosis [place] [id number] [address] Oct, [place] [address] 18489- 9275 Oct, Fibromyalgia M79.7 [place] [address] 19392- 4978 Sep, Restless leg syndrome G25.81 and Restless leg G25.81 [place] [address] [place] [id number] [place] [address] 13184- 8625 Sep, [place] [address] 37[address]- 1510 Sep, Seasonal allergic rhinitis due to pollen J30.1 ; Screening for breast cancer Z12.31 ; Chest pain at rest R07.9 ; Restless leg syndrome G25.81 ; Essential (primary) hypertension I10 and Depressed F32.9 [place] [address] [place] [id number] [place] [address] 36068- 8187 August, Fibromyalgia M79.7 [place] [address] 886[address]- 6[address] August, [place] [address] 40043- 0057 August, [place] [address] 29087- [address]14 August, Ab[address] chest [address] R93.8 [facility] [id number] [place] [address] 04984- 8071 August, Generalized anxiety disorder F41.1 and Major depressive disorder, recurrent episode with anxious distress F33.9 [facility] [address] [place] [id number] [place] [address] 26726- 3755 August, [address] R93.8 [facility] [address] [place] [id number] [place] [address] 13583- 3579 Jul, [place] [address] [place] [id number] [place] [address] 28833- 2911 Jul, Chronic kidney disease, stage 4 (severe) N18.4 [place] [address] [place] [id number] [place] [address] 85357- 8793 Jul, [place] [address] [place] [id number] [place] [address] 16729- 5749 Jul, Restless leg G25.81 ; Mixed stress and urge urinary incontinence N39.46 and Fibromyalgia M79.7 [place] [address] [place] [id number] [place] [address] 72374- 2163 Jul, Chronic kidney disease, stage 4 (severe) N18.4 [place] [address] [place] [id number] [place] [address] 28850- 5444 Jun, Orthostatic hypotension I95.1 ; Chronic kidney disease, stage 4 (severe) N18.4 ; Chest wall discomfort R07.89 and Body mass index (BMI) of 40.0-44.9 in adult Z68.41 [place] [address] [place] [id number] [address]281 Jun, [place] [address] [place] [id number] [place] [address] 32902- 3999 Jun, Orthostatic hypotension I95.1 [place] [address] [place] [id number] [place] [address] 46661- 8038 Jun, [facility] [address] [place] [id number] [place] [address] 36096 -6292 Jun, Orthostatic hypotension I95.1 ; Dysuria R30.0 and Acute cystitis without hematuria N30.00 [facility] [address] [place] [id number] [place] [address] 05818- 0867 Jun, [facility] [address] [place] [id number] [place] [address] 96456- 6330 Jun, Chronic kidney disease, stage 4 (severe) N18.4 [facility] [address] [place] [id number] [place] [address] 41791- 0704 Jun, Fibromyalgia M79.7 [facility] [address] [place] [id number] [place] [address] 72850- 5620 Jun, [facility] [address] [place] [id number] [place] [address] 78784- 3203 Jun, [facility] [address] [place] [id number] [place] [address] 68291- [address] May, [address] R93.8 and Stage 3 chronic kidney disease N18.3 [facility] [address] [place] [id number] [place] [address] 66481- 8176 May, Chronic kidney disease, stage 4 (severe) N18.4 [facility] [address] [place] [id number] [place] [address] 78899- 8356 May, Chronic kidney disease, stage 4 (severe) N18.4 [facility] [address] [place] [id number] [place] [address] 01350- 90[address] May, Ab[address] chest [address] R93.8 [facility] [address] [place] [id number] [place] [address] 74828- 0052 May, [facility] [address] [place] [id number] [place] [address] 19075- 1055 May, [facility] [address] [place] [id number] [place] [address] 21526- 2375 May, Generalized anxiety disorder F41.1 and Major depressive disorder, recurrent episode with anxious distress F33.9 [place] [id number] [place] [address] 68142- 8456 May, Mood disorder F39 [facility] [id number] [place] [address] 18310- 3365 Apr, [facility] [address] [place] [id number] [place] [address] 06884- 6048 Apr, Infected skin lesion L08.9 and Muscle strain of right shoulder region, initial encounter S46.911A [place] [address] [place] [id number] [place] [address] 78992- 7385 Apr, Generalized anxiety disorder F41.1 and Major depressive disorder, recurrent episode with anxious distress F33.9 [place] [address] [place] [id number] [place] [address] 57945- 9629 Apr, [facility] [address] [place] [id number] [place] [address] 99668- 9424 Apr, Recent urinary tract infection Z87.440 and Hypothyroid E03.9 [place] [address] [place] [id number] [place] [address] 14476- 0821 Apr, Generalized anxiety disorder F41.1 and Major depressive disorder, recurrent episode with anxious distress F33.9 [place] [address] [place] [id number] [place] [address] 01995- 0240 Apr, Recent urinary tract infection Z87.440 [place] [id number] [place] [address] 28261- 0600 Mar, [facility] [address] [place] [id number] [place] [address] 20577 -3554 Mar, Dysuria R30.0 ; Acute cystitis without hematuria N30.00 and BMI 40.0-44.9, adult Z68.41 [place] [address] [place] [id number] [place] [address] 24885- 6511 14 Mar, 2017 [facility] [id number] [place] [address] 42376- 1682 Mar, [facility] [address] [place] [id number] [place] [address] 86811- 5590 Mar, Generalized anxiety disorder F41.1 and Major depressive disorder, recurrent episode with anxious distress F33.9 [facility] [address] [place] [id number] [place] [address] 89987- 8095 Feb, Conjunctivitis, bacterial H10.9 [place] [address] [place] [id number] [place] [address] 69014- 5090 Feb, [facility] [address] [place] [id number] [place] [address] 00262 -4562 Feb, Conjunctivitis, bacterial H10.9 [place] [address] [place] [id number] [place] [address] 85925- 1591 Feb, [facility] [address] [place] [id number] [place] [address] 95070 -6707 Feb, Dysuria R30.0 ; Acute cystitis N30.00 and BMI 40.0-44.9, adult Z68.41 [place] [address] [place] [id number] [place] [address] 55229- 7917 Feb, [place] [address] [place] [id number] [place] [address] 94722- 1516 Feb, Generalized anxiety disorder F41.1 and Major depressive disorder, recurrent episode with anxious distress F33.9 [place] [address] [place] [id number] [place] [address] 16734- 7713 Feb, Mood disorder F39 and BMI 40.0-44.9, adult Z68.41 [facility] [id number] [place] [address] 53872- 5224 Jan, [facility] [address] [place] [id number] [place] [address] 86383- 5356 Jan, [place] [id number] [place] [address] 91862- 0495 Jan, Hypothyroid E03.9 [place] [address] [place] [id number] [place] [address] 31864- 0820 Jan, [place] [address] [place] [id number] [place] [address] 77069- 1535 Jan, Chronic kidney disease, unspecified N18.9 ; Hypokalemia E87.6 ; Essential (primary) hypertension I10 ; Fibromyalgia M79.7 ; Coronary artery disease involving napaimute coronary artery of napaimute heart, angina presence unspecified I25.10 ; Hypothyroid E03.9 and Encounter for immunization Z23 [place] [address] [place] [id number] [place] [address] 84308- 1291 Jan, Hypothyroid E03.9 [place] [address] [place] [id number] [place] [address] 64081- 5068 Jan, [place] [address] [place] [id number] [place] [address] 83166- 8833 Dec, Vitamin D deficiency E55.9 [place] [address] [place] [id number] [place] [address] 77001- 9608 Dec, Primary osteoarthritis of left knee M17.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 [place] [address] [place] [id number] [place] [address] 43478- 0811 19 Dec, 2016 Fibromyalgia M79.7 [place] [address] [place] [id number] [place] [address] 58012- 6383 18 Dec, 2016 Mood disorder F39 [place] [address] [place] [id number] [place] [address] 01870- 7898 13 Dec, 2016 [place] [address] [place] [id number] [place] [address] 07343- 9043 13 Dec, 2016 Generalized anxiety disorder F41.1 and Major depressive disorder, recurrent episode with anxious distress F33.9 [place] [address] [place] [address]- 0084 11 Dec, 2016 [facility] [id number] [place] [address] 85467- 4609 08 Dec, 2016 Streptococcal meningitis G00.2 [facility] [id number] [place] [address] 73450- 5494 07 Dec, 2016 Streptococcal meningitis G00.2 [facility] [id number] [place] [address] 82775- 6632 07 Dec, 2016 [facility] [id number] [place] [address] 84573- 3253 06 Dec, 2016 Streptococcal meningitis G00.2 [facility] [id number] [place] [address] 57164- 5137 Dec, 2016 [facility] [id number] [place] [address] 41583- 2719 Dec, 2016 Major depressive disorder, recurrent episode with anxious distress F33.9 [facility] [id number] [place] [address] 34162- 4504 Nov, Fever, unspecified fever cause R50.9 [facility] [id number] [place] [address] 74233- 1871 24 Nov, 2016 [facility] [id number] [place] [address] 18720- 9439 Nov, Hypothyroid E03.9 [facility] [id number] [place] [address] 59924- 6369 Nov, Generalized anxiety disorder F41.1 and Major depressive disorder, recurrent episode with anxious distress F33.9 [facility] [id number] [place] [address] 27074- 4063 Nov, [facility] [address] [id number] Oct, Dental examination Z01.20 [facility] [address] [place] [id number] [place] [address] 12837- 2682 Oct, Generalized anxiety disorder F41.1 and Major depressive disorder, recurrent episode with anxious distress F33.9 [place] [id number] [place] [address] 57630- 5446 Oct, Chronic kidney disease, stage 4 (severe) N18.4 [place] [address] [place] [id number] [place] [address] 92824- 2211 Oct, [place] [address] [place] [id number] [place] [address] 55397- 2273 Oct, Fibromyalgia M79.7 [place] [address] [place] [id number] [place] [address] 01608- 5201 Oct, [place] [address] [place] [id number] [place] [address] 77268- 2252 Oct, Generalized anxiety disorder F41.1 ; Major depressive disorder, recurrent episode with anxious distress F33.9 and Bipolar disorder, current episode manic without psychotic features F31.10 [place] [address] [place] [address]- 1128 Sep, [place] [address] [place] [id number] [place] [address] 67782- 1046 Sep, [place] [id number] [place] [address] 76969- 1462 Sep, Vitamin D deficiency E55.9 [place] [address] [place] [address]- 5577 Sep, Vitamin D deficiency E55.9 [place] [id number] [place] [address] 16385- 254 Sep, [place] [address] [place] [id number] [place] [address] 20507- 9739 Sep, Chronic kidney disease, stage 4 (severe) N18.4 ; Hypothyroid E03.9 ; Restless leg G25.81 ; Fibromyalgia M79.7 ; Essential ( primary) hypertension I10 ; Vitamin D deficiency E55.9 ; Dyspepsia R10.13 ; Anemia in chronic kidney disease D63.1 ; Chronic kidney disease, unspecified N18.9 ; Coronary artery disease involving napaimute coronary artery of napaimute heart , angina presence unspecified I25.10 ; Screening breast examination Z12.39 and Low back pain M54.5 [place] [address] [place] [id number] [place] [address] 95002- 0254 August, Generalized anxiety disorder F41.1 and Major depressive disorder, recurrent episode with anxious distress F33.9 [place] [address] [place] [id number] [place] [address] 88975- 2220 August, Generalized anxiety disorder F41.1 and Major depressive disorder, recurrent episode with anxious distress F33.9 [place] [address] [place] [id number] [place] [address] 74948- 7655 August, Fibromyalgia M79.7 [place] [address] 64989- 4216 Jul, Generalized anxiety disorder F41.1 and Major depressive disorder, recurrent episode with anxious distress F33.9 [place] [address] [place] [id number] [place] [address] 82889- 1910 Jul, Fibromyalgia M79.7 [place] [address] [place] [id number] [place] [address] 36561- 6652 Jul, Generalized anxiety disorder F41.1 [place] [address] [place] [id number] [place] [address] 22942- 2679 May, [place] [address] [place] [id number] [place] [address] 20196- 5607 May, Hypothyroid E03.9 [place] [address] [place] [id number] [place] [address] 68432- 6201 May, Chronic kidney disease, stage 4 (severe) N18.4 ; Hypothyroid E03.9 ; Restless leg G25.81 ; Fibromyalgia M79.7 ; Essential ( primary) hypertension I10 ; Vitamin D deficiency E55.9 ; Dyspepsia R10.13 ; Acute non-recurrent maxillary sinusitis J01.00 ; Anemia in chronic kidney disease D63.1 ; Chronic kidney disease, unspecified N18.9 and Coronary artery disease involving napaimute coronary artery of napaimute heart, angina presence unspecified I25.10 [facility] [address] [place] [id number] [place] [address] 89337- 1303 May, Vitamin D deficiency, unspecified E55.9 [place] [address] [place] [id number] [place] [address] 06763- 8844 May, Generalized anxiety disorder F41.1 and Major depressive disorder, recurrent episode with anxious distress F33.9 [place] [address] [place] [id number] [place] [address] 64411- 6019 Apr, Pain in right knee M25.561 and Pain in left knee M25.562 [place] [address] [place] [id number] [place] [address] 03869- 2332 Apr, [place] [address] [place] [id number] [place] [address] 49895- 1978 Apr, [facility] [id number] [place] [address] 72444- 3225 Apr, [place] [address] [place] [id number] [place] [address] 60373- 7964 Mar, Generalized anxiety disorder F41.1 and Major depressive disorder, recurrent episode with anxious distress F33.9 [place] [id number] [place] [address] 67407- 4815 Mar, Generalized anxiety disorder F41.1 and Major depressive disorder, recurrent episode with anxious distress F33.9 [place] [address] [place] [id number] [place] [address] 85306- 8271 Mar, [facility] [address] [place] [id number] [place] [address] 97949- 4410 Mar, [place] [address] [place] [id number] [place] [address] 45776- 6432 Mar, [place] [address] [place] [id number] [place] [address] 49309- 2710 Mar, Asthma J45.909 and Fibromyalgia M79.7 [place] [address] [place] [id number] [place] [address] 08717 2546 Mar, Chronic kidney disease, stage 4 (severe) N18.4 ; Vitamin D deficiency E55.9 and Essential (primary) hypertension I10 [place] [address] 50330- 8979 Feb, [place] [address] 97330- 4460 Feb, Dysuria R30.0 ; Mixed stress and urge urinary incontinence N39.46 ; Fibromyalgia M79.7 and Chronic kidney disease, stage IV (severe) N18.4 [place] [address] 56556- 8986 Feb, Chronic kidney disease, stage 4 (severe) N18.4 [place] [address] 26142- 3703 Feb, Chronic kidney disease, stage 4 (severe) N18.4 [place] [address] [place] [id number] [place] [address] 49161- 5696 Feb, [place] [address] [place] [id number] [place] [address] 62866- 0241 Feb, Vitamin D deficiency, unspecified E55.9 [place] [address] [place] [id number] [place] [address] 90940 2546 Jan, [place] [address] 63170 2546 Jan, [place] [address] [place] [id number] [place] [address] 27665 2546 Dec, [place] [address] [place] [id number] [place] [address] 49402 2542 Dec, Chronic kidney disease, stage 4 (severe) N18.4 [facility] [address] [place] [id number] [place] [address] 88772- 0950 28 Dec, 2015 Dysthymic disorder F34.1 and Generalized anxiety disorder F41.1 [facility] [address] [place] [id number] [place] [address] 28265- 4274 Dec, [facility] [address] [place] [id number] [place] [address] 32499- 1350 Dec, [facility] [address] [place] [id number] [place] [address] 52822- 6119 Dec, Dysthymic disorder F34.1 and Generalized anxiety disorder F41.1 [place] [address] [place] [id number] [place] [address] 17126- 8316 Dec, Dysuria R30.0 ; Chronic kidney disease, stage 4 (severe) N18.4 ; Hypertension I10 ; Dyspepsia R10.13 ; Yeast dermatitis B37.2 ; Palpitations R00.2 ; Hypothyroid E03.9 ; Functional 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 and Other seasonal allergic rhinitis J30.2 [facility] [address] [place] [id number] [place] [address] 91156 -9762 Dec, [facility] [address] [place] [id number] [place] [address] 29115 -4230 Nov, Dysuria R30.0 and Stress incontinence N39.3 [facility] [address] [place] [id number] [place] [address] 95927- 9523 Nov, [facility] [address] [place] [id number] [place] [address] 52925- 2292 Nov, [facility] [address] [place] [id number] [place] [address] 95309- 4337 Nov, Osteoarthritis of knees, bilateral M17.0 [facility] [address] [place] [id number] [place] [address] 07050- 3303 Nov, Dysthymic disorder F34.1 and Generalized anxiety disorder F41.1 [facility] [address] [place] [address]- 8162 Nov, [facility] [address] [place] [id number] [place] [address] 50879- 2796 Nov, [facility] [address] [place] [id number] [place] [address] 67172- 7092 Nov, Urgency of urination R39.15 [facility] [address] [place] [id number] [place] [address] 24473- 1703 Nov, [facility] [address] [place] [id number] [place] [address] 57057- 8251 Nov, Chronic kidney disease, stage 4 (severe) N18.4 [facility] [address] [place] [id number] [place] [address] 41601- 2678 Oct, Hypertension I10 ; Coronary artery disease involving napaimute coronary artery of napaimute heart, angina presence unspecified I25.10 ; Palpitations R00.2 ; Hypothyroid E03.9 ; Right foot pain M79.671 ; Functional 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 and Other seasonal allergic rhinitis J30.2 [facility] [id number] [place] [address]- 6187 Oct, Dysthymic disorder F34.1 and Generalized anxiety disorder F41.1 [facility] [id number] [place] [address] 59[address]- 4439 Sep, [facility] [id number] [place] [address] [phone]- 9556 Sep, [facility] [id number] [place] [address] [phone] Sep, [facility] [id number] [place] [address] 17831- 9681 Sep, [facility] [id number] [place] [address] [phone]- 9505 Sep, [facility] [address] [place] [address] 27 Sep, 2015 Dysthymic disorder F34.1 and Generalized anxiety disorder F41.1 [place] [address] [address]- [address] 16 Sep, 2015 Asthma with acute exacerbation in adult J45.901 ; Dysuria R30.0 ; Chronic kidney disease, stage 4 (severe) N18.4 and History of anemia Z86.2 [place] [address] [address]- [address] 2015 Generalized anxiety disorder F41.1 and Dysthymic disorder F34.[address] [address]- [address] August, Screening breast examination Z12.39 and Acute recurrent maxillary sinusitis J01.[address] 8[address]77- 0076 August, Osteoarthritis of knees, bilateral M17.[address] 69048- 8896 August, Chronic kidney disease, stage 4 (severe) N18.4 ; Acute non- recurrent maxillary sinusitis J01.00 ; Urinary problem R39.89 ; Bowel habit changes R19.4 ; Functional diarrhea K59.1 and History of colon polyps Z86.010 [place] [id number] [place] [address] 90664- 5088 Jul, Dysthymic disorder F34.1 and Generalized anxiety disorder F41.1 [place] [id number] [place] [address] 97209- 3623 Jul, [address] 99998- 3873 Jul, Dysthymic disorder F34.1 ; Generalized anxiety disorder F41.1 and 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.[address] 70609- 4465 Jul, [facility] [id number] [place] [address] 80997- 3115 Jun, [facility] [id number] [place] [address] 65916- 7210 Jun, [facility] [id number] [place] [address] 60022- 6786 May, [facility] [id number] [place] [address] 73134- 3018 May, Dysthymic disorder F34.1 and Generalized anxiety disorder F41.1 [place] [id number] [place] [address] 51899- 0109 Apr, Kidney disease N28.9 [place] [id number] [place] [address] 29481- 7140 Apr, Generalized anxiety disorder F41.1 and Dysthymic disorder F34.1 [place] [id number] [place] [address] 77992- 3039 Apr, Chronic kidney disease, stage 4 (severe) N18.4 [place] [id number] [place] [address] 16792- 8798 Apr, Generalized anxiety disorder F41.1 ; Major depression, recurrent F33.9 and Sleep disturbance G47.9 [place] [id number] [place] [address] 82316- 0574 Mar, Generalized anxiety disorder F41.1 and Dysthymic disorder F34.1 [place] [id number] [place] [address] 33138- 8930 Mar, Generalized anxiety disorder F41.1 ; Dysthymic disorder F34.1 and Insomnia G47.00 [place] [id number] [place] [address] 74148- 2468 Mar, [place] [id number] [place] [address] 50339- 3479 Mar, [facility] [id number] [place] [address] 59351- 0687 Mar, Osteoarthritis of knees, bilateral M17.0 [place] [id number] [place] [address] 91906- 8332 Mar, Hypertension I10 ; Hypothyroid E03.9 ; Dysthymic disorder F34.1 ; Chronic kidney disease, stage 4 (severe) N18.4 and Nausea & vomiting R11.2 [place] [id number] [place] [address] 85898- 5937 Mar, Generalized anxiety disorder F41.1 ; Dysthymic disorder F34.1 and Insomnia G47.00 [place] [id number] [place] [address] 12165- 9163 Mar, Dehydration E86.0 ; Chronic kidney disease, stage 4 (severe ) N18.4 and Nausea & vomiting R11.2 [facility] [id number] [place] [address] 96425 -5290 Mar, Gastroenteritis K52.9 [place] [address] 35160- 0544 Mar, [place] [address] [id number] [place] [address] 41751- 4433 Mar, [place] [id number] [place] [address] 29645- 0979 Feb, Dysthymic disorder F34.1 and Generalized anxiety disorder F41.1 [place] [id number] [place] [address] 63683- 8427 Jan, UTI (urinary tract infection) N39.0 ; Asthma J45.909 ; Coronary artery disease involving napaimute coronary artery of napaimute heart, angina presence unspecified I25.10 ; Hypertension I10 ; Hypothyroid E03.9 ; Vitamin D deficiency E55.9 ; Insomnia G47.00 ; Palpitations R00.2 ; Depressed F32.9 ; Restless leg G25.81 and Anxiety F41.9 [place] [id number] [place] [address] 54286- 4645 19 Jan, 2015 Dysthymic disorder F34.1 and Generalized anxiety disorder F41.1 [place] [id number] [place] [address] 46844- 2273 Jan, [place] [id number] [place] [address] 22237- 3103 Dec, [place] [id number] [place] [address] 52834- 4341 28 Dec, 2014 Alkalosis 276.3 ; Chronic kidney disease, 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.4 ; Hyperpotassemia 276.7 ; Secondary hyperparathyroidism, renal 588.81 ; Proteinuria 791.0 ; Unspecified vitamin D deficiency 268.9 ; Anemia in chronic kidney disease 285.21 ; Other and unspecified hyperlipidemia 272.4 ; Hypertension, essential, benign 401.1 and Chronic kidney disease (CKD), stage III (moderate) 585.3 [place] [id number] [place] [address] 49234- 1960 Dec, [place] [id number] [place] [address] 24112- 0773 16 Dec, 2014 Depressive disorder, not elsewhere classified 311 and Generalized anxiety disorder 300.02 [place] [id number] [place] [address] 00119- 1428 10 Dec, 2014 [place] [address] [id number] [place] [address] 35317- 1358 08 Dec, 2014 [place] [id number] [place] [address] 01249- 6614 Nov, Depressive disorder, not elsewhere classified 311 and Generalized anxiety disorder 300.02 [place] [address] [id number] [place] [address] 40034- 2015 Nov, Arthritis of both knees 716.96 [place] [id number] [place] [address] 71034- 0514 Nov, PAF (paroxysmal atrial fibrillation) 427.31 ; CAD (coronary artery disease) 414.00 ; Chest pain 786.50 and Chronic kidney disease (CKD) stage G4/A1, severely decreased glomerular filtration rate (GFR) between 15-29 mL/min/1.73 square meter and albuminuria creatinine ratio less than 30 mg/g 585.4 [place] [address] [id number] [place] [address] 07345- 7012 Oct, Coronary atherosclerosis of unspecified type of vessel, napaimute or graft 414.00 ; Chronic kidney disease, 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.4 ; Hypertension 401.9 and Edema 782.[address] 02168- 3959 Oct, Depressive disorder, not elsewhere classified 311 and Generalized anxiety disorder 300.[address] 60572- 5496 Oct, Depressive disorder, not elsewhere classified 311 and Generalized anxiety disorder 300.02 [place] [address] 18343- 9232 Oct, [address] 93924- 8429 Oct, [place] [address] [place] [address] [id number] [place] [address] 52469- 1282 Sep, [place] [id number] [place] [address] 49195- 7982 Sep, Chronic kidney disease, 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.4 [place] [address] [place] [id number] [place] [address] 73486- 9890 Sep, [address] 98076- 8502 Sep, Coronary atherosclerosis of unspecified type of vessel, napaimute or graft 414.00 ; Hypertension 401.9 ; Edema 782.3 and Hypothyroidism 244.[address] 21365- 5106 Sep, Coronary atherosclerosis of unspecified type of vessel, napaimute or graft 414.00 ; Hypertension 401.9 ; Fibromyalgia 729.1 ; Edema 782.3 ; Hypothyroidism 244.9 and Anemia 285.9 [facility] [id number] [place] [address] 88921- 6241 Sep, Anxiety disorder, unspecified 300.00 and Depressive disorder , not elsewhere classified 311 [facility] [address] 22390- 3126 Sep, [facility] [address] 82757- 5195 August, Generalized anxiety disorder 300.02 [facility] [address] 46437- 3267 August, Closed fracture of lateral malleolus 824.2 [facility] [address] 11890- 6356 Jul, [facility] [address] 27953- 0744 Jul, [facility] [id number] [place] [address] 47665- 7124 Jun, [facility] [id number] [place] [address] 09891- 2119 Jun, [facility] [id number] [place] [address] 54855- 6795 Jun, [facility] [id number] [place] [address] 60179- 0172 Jun, [facility] [address] 76930- 6803 Jun, [facility] [id number] [place] [address] 76754- 0119 Jun, [facility] [id number] [place] [address] 55246- 1129 May, [facility] [place] [facility] [address] [id number] [place] [address]- 7611 19 May, 2014 [facility] [place] [facility] [address] [id number] [place] [address]- 1986 18 May, 2014 [facility] [place] [facility] [address] [id number] [place] [address] 2546 18 May, 2014 [facility] [place] [facility] [address] [id number] [place] [address]- 4276 16 May, 2014 [facility] [place] [facility] [address] [id number] [place] [address]- 8687 16 May, 2014 [facility] [place] [facility] [address] [id number] [place] [address]- 9776 13 May, 2014 [facility] [place] [facility] [address] [id number] [place] [address]- 6197 13 May, 2014 [facility] [place] [facility] [address] [id number] [place] [address]- 3515 10 May, 2014 [facility] [place] [facility] [address] [id number] [place] [address]- 7280 10 May, 2014 [facility] [place] [facility] [address] [facility] [id number] [place] [address]- 4916 Apr, [facility] [place] [facility] [address] [id number] [place] [address]- 1236 Apr, [facility] [place] [facility] [address] [id number] [place] [address]- 1874 Mar, [facility] [place] [facility] [address] [id number] [place] [address] 2546 Mar, [facility] [place] [facility] [address] [id number] [place] [address]- 2546 Mar, [facility] [place] [facility] [address] [id number] [place] [address]- 2540 Mar, [facility] [place] [facility] [address] [id number] [place] [address]- 8141 15 Mar, 2014 [facility] [place] [facility] [address] [id number] [place] [address]- 5681 15 Mar, 2014 [facility] [place] [facility] [address] [id number] [place] [address]- 0968 Mar, [facility] [place] [facility] [address] [id number] [place] [address]- 9570 Feb, [facility] [place] [facility] [address] [id number] [place] [address]- 7875 Feb, [facility] [place] [facility] [address] [id number] [place] [address]- 4433 Feb, [facility] [place] [facility] [address] [id number] [place] [address]- 6617 Jan, [facility] [place] [facility] [address] [id number] [place] [address]- 6830 Jan, [facility] [place] [facility] [address] [id number] [place] [address]- 4364 Jan, [facility] [place] [facility] [address] [id number] [place] [address]- 7541 Jan, [facility] [place] [facility] [address] [id number] [place] [address]- 8022 Jan, [facility] [place] [facility] [address] [id number] [place] [address]- 3910 Jan, [facility] [place] [facility] [address] [id number], [place] [address]- 3427 Jan, [facility] [place] [facility] [address] [id number], [place] [address]- 8514 Jan, [facility] [place] [facility] [address] [id number], [place] [address]- 8789 Jan, [facility] [place] [facility] [address] [id number], [place] [address]- 8406 Jan, [facility] [place] [facility] [address] [id number] [place] [address]- 6623 Nov, [facility] [place] [facility] [address] [id number] [place] [address]- 7554 Nov, [facility] [place] [facility] [address] [id number] [place] [address]- 1265 Nov, [facility] [place] [facility] [address] [id number] [place] [address]- 5761 Oct, [facility] [place] [facility] [address] [id number] [place] [address]- 9908 Oct, [facility] [place] [facility] [address] [id number] [place] [address]- 8619 Oct, [facility] [place] [facility] [address] [id number] [place] [address]- 6472 Oct, [facility] [place] [facility] [address] [id number] [place] [address]- 0004 Oct, [facility] [place] [facility] [address] [id number] [place] [address]- 9824 Oct, [facility] [place] [facility] [address] [id number] [place] [address]- 0085 Oct, [facility] [place] [facility] [address] [id number] [place] [address]- 5845 Oct, [facility] [place] [facility] [address] [id number] [place] [address]- 1065 Oct, [facility] [place] [facility] [address] [id number] [place] [address]- 7601 Sep, [facility] [place] [facility] [address] [id number] [place] [address]- 0764 Sep, [facility] [place] [facility] [address] [id number] [place] [address]- 7108 Sep, [facility] [place] [facility] [address] [id number] [place] [address]- 0696 Sep, [facility] [place] [facility] [address] [id number] [place] [address]- 8726 Sep, [facility] [place] [facility] [address] [id number] [place] [address]- 6324 Sep, [facility] [place] [facility] [address] [id number] [place] [address]- 6899 Sep, [facility] [place] [facility] [address] [id number] [place] [address]- 3758 Sep, [facility] [place] [facility] [address] [id number] [place] [address]- 7050 Sep, [facility] [place] [facility] [address] [id number] [place] [address]- 8052 August, [facility] [place] [facility] [address] [id number] [place] [address]- 4255 August, [facility] [place] [facility] [address] [id number] [place] [address]- 0258 August, [facility] [place] [facility] [address] [id number] [place] [address]- 6832 August, [facility] [place] [facility] [address] [id number] [place] [address]- 2845 August, [facility] [place] [facility] [address] [id number], [place] [address]- 6624 August, [facility] [place] [facility] [address] [id number], [place] [address]- 7685 Jul, [facility] [place] [facility] [address] [id number] [place] [address]- 6296 Jul, [facility] [place] [facility] [address] [id number] [place] [address]- 5048 Jul, [facility] [place] [facility] [address] [id number] [place] [address]- 1716 Jul, [facility] [place] [facility] [address] [id number] [place] [address]- 1535 07 Jul, 2013 [facility] [place] [facility] [address] [id number] [place] [address]- 2766 Jul, [facility] [place] [facility] [address] [id number] [place] [address]- 9506 Jun, [facility] [place] [facility] [address] [id number] [place] [address]- 6018 Jun, [facility] [place] [facility] [address] [id number] [place] [address]- 5864 May, [facility] [place] [facility] [address] [id number] [place] [address]- 1296 May, [facility] [place] [facility] [address] [id number] [place] [address]- 8186 May, [facility] [place] [facility] [address] [facility] [id number] [place] [address]- 8647 May, [facility] [place] [facility] [address] [id number] [place] [address]- 0113 Apr, [facility] [place] [facility] [address] [id number] [place] [address]- 1611 Apr, [facility] [place] [facility] [address] [facility] [id number] [place] [address]- 7180 Mar, [facility] [place] [facility] [address] [id number] [place] [address]- 5126 18 Mar, 2013 [facility] [place] [facility] [address] [id number] [place] [address] 2548 17 Mar, 2013 [facility] [place] [facility] [address] [id number] [place] [address]- 9916 Mar, [facility] [place] [facility] [address] [facility] [id number] [place] [address]- 9436 05 Mar, 2013 [facility] [place] [facility] [address] [facility] [id number] [place] [address]- 0494 Mar, [facility] [place] [facility] [address] [id number] [place] [address]- 5069 Feb, [facility] [place] [facility] [address] [id number] [place] [address]- 7010 Feb, [facility] [place] [facility] [address] [id number] [place] [address]- 9347 Feb, [facility] [place] [facility] [address] [id number] [place] [address]- 2682 Feb, [facility] [place] [facility] [address] [id number] [place] [address]- 8233 Feb, [facility] [place] [facility] [address] [id number] [place] [address]- 4760 Feb, [facility] [place] [facility] [address] [id number] [place] [address]- 6102 Jan, [facility] [place] [facility] [address] [id number] [place] [address]- 4014 Jan, [facility] [place] [facility] [address] [id number] [place] [address]- 6185 Jan, [facility] [place] [facility] [address] [id number] [place] [address]- 0145 Jan, [facility] [place] [facility] [address] [id number] [place] [address]- 7269 Jan, [facility] [place] [facility] [address] [id number], [place] [address]- 6252 Jan, [facility] [place] [facility] [address] [id number] [place] [address]- 6433 12 Dec, 2012 [facility] [place] [facility] [address] [id number] [place] [address]- 3401 09 Dec, 2012 [facility] [place] [facility] [address] [id number] [place] [address]- 6752 16 Nov, 2012 [facility] [place] [facility] [address] [id number] [place] [address]- 0720 Nov, [facility] [address] [id number] [place] [address]- 9210 Oct, [facility] [place] [facility] [address] [id number] [place] [address]- 8998 Oct, [facility] [address] [id number] [place] [address]- 8375 Oct, [facility] [address] [id number] [place] [address]- 2957 Oct, [facility] [address] [id number] [place] [address]- 3820 Oct, [facility] [address] [id number] [place] [address]- 7690 Oct, [facility] [address] [id number] [place] [address]- 2997 Sep, [facility] [address] [id number] [place] [address]- 6296 Sep, [facility] [address] [id number] [place] [address]- 4654 Sep, [facility] [address] [id number] [place] [address]- 3982 Sep, [facility] [address] [id number] [place] [address]- 7913 August, [facility] [place] [facility] [address] [id number] [place] [address]- 9424 August, [facility] [place] [facility] [address] [id number] [place] [address]- 4482 August, [facility] [place] [facility] [address] [id number] [place] [address]- 9647 August, [facility] [place] [facility] [address] [id number] [place] [address]- 0667 August, [facility] [address] [id number] [place] [address]- 7988 Jul, [facility] [address] [id number] [place] [address]- 5010 Jul, [facility] [address] [id number] [place] [address]- 3784 Jul, [facility] [address] [id number] [place] [address]- 7414 Jul, [facility] [address] [id number] [place] [address]- 7167 Jul, [facility] [address] [id number] [place] [address]- 5434 Jul, [facility] [address] [id number] [place] 5916 Jul, [facility] [address] [id number] [place] [address]- 7694 Jul, [facility] [address] [id number] [place] [address]- 1150 Jul, [facility] [address] [id number] [place] [address]- 9033 Jul, [facility] [address] [id number] [id number] Jun, [facility] [address] [id number] [place] [address]- 7501 Jun, [facility] [address] [id number] [place] [address]- 1142 Jun, [facility] [place] [facility] [address] [id number] [place] [address]- 6149 Jun, [facility] [place] [facility] [address] [id number] [place] [address]- 8426 Jun, [facility] [address] [id number] [place] [address]- 0362 May, [facility] [address] [id number] [place] [address]- 4982 May, [facility] [place] [facility] [address] [id number] [place] [address] May, [facility] [address] [id number] [place] [address] Apr, [facility] [place] [facility] [address] [id number] [place] [address] Apr, [facility] [address] [id number] [place] [address] Apr, [facility] [place] [facility] [address] [id number] [place] [address] Apr, [facility] [address] [facility] [id number] [place] [address] Apr, [facility] [address] [id number] [place] [address] Apr, [facility] [address] [id number] [place] [address] Mar, [facility] [place] [facility] [address] [id number] [place] [address] Mar, [facility] [place] [facility] [address] [id number], [place] [address] Mar, [facility] [place] [facility] [address] [id number], [place] [address] Mar, [facility] [place] [facility] [address] [id number] [place] [address] Feb, [facility] [place] [facility] [address] [id number] [place] [address] Feb, [facility] [place] [facility] [address] [facility] [id number] [place] [address] Feb, [facility] [place] [facility] [address] [id number] [place] [address] Feb, [facility] [place] [facility] [address] [id number] [place] [address] Feb, [facility] [place] [facility] [address] [id number] [place] [address] Feb, [facility] [place] [facility] [address] [id number] [place] [address] Feb, [facility] [place] [facility] [address] [id number] [place] [address] Feb, [facility] [place] [facility] [address] [id number] [place] [address] Feb, [facility] [place] [facility] [address] [id number] [place] [address] Feb, [facility] [place] [facility] [address] [id number] [place] [address] Feb, [facility] [place] [facility] [address] [id number] [place] [address] Feb, [facility] [place] [facility] [address] [id number] [place] [address] Feb, [facility] [place] [facility] [address] [facility] [id number] [place] [address] 28[address] Feb, [facility] [place] [facility] [address] [id number] [place] [address] Feb, [facility] [place] [facility] [address] [id number], [place] [address] Feb, [facility] [place] [facility] [address] [id number] [place] [address] Jan, [facility] [place] [facility] [address] [id number] [place] [address] Jan, [facility] [place] [facility] [address] [id number], [place] [address] Jan, [facility] [place] [facility] [address] [id number] [place] [address] 31 Jan, 2012 [facility] [place] [facility] [address] [id number] [place] [address] 30 Jan, 2012 [facility] [place] [facility] [address] [id number] [place] [address] Jan, [facility] [place] [facility] [address] [id number] [place] [address] 25 Jan, 2012 [facility] [place] [facility] [address] [id number] [place] [address] 16 Jan, 2012 [facility] [place] [facility] [address] [id number] [place] [address] 16 Jan, 2012 [facility] [place] [facility] [address] [id number] [place] [address] 2021 15 Jan, 2012 [facility] [place] [facility] [address] [id number] [place] [address] 15 Jan, 2012 [facility] [place] [facility] [address] [id number] [place] [address] Jan, [facility] [place] [facility] [address] [id number] [place] [address] 26 Dec, 2011 [facility] [place] [facility] [address] [id number] [place] [address] 26 Sep2011 [facility] [place] [facility] [address] [id number] [place] [address] 24 Sep2011 [facility] [place] [facility] [address] [id number] [place] [address]- 30[address] 23 Sep2011 [facility] [place] [facility] [address] [id number] [place] [address]- 2547 22 Sep2011 [facility] [place] [facility] [address] [id number] [place] [address]- 2[address] 21 Sep2011 [facility] [place] [facility] [address] [id number] [place] [address] 20 Dec, 2011 [facility] [place] [facility] [address] [id number] [place] [address] 20 Dec, 2011 [facility] [place] [facility] [address] [id number] [place] [address] 07 Dec, 2011 [facility] [place] [facility] [address] [id number] [place] [address] 06 Dec, 2011 [facility] [place] [facility] [address] [id number] [place] [id number] 06 Dec, 2011 [facility] [place] [facility] [address] [id number] [place] [address] 05 Dec, 2011 [facility] [place] [facility] [address] [id number] [place] [address] 23 Nov, 2011 [facility] [place] [facility] [address] [id number] [place] [address] 17 Nov, 2011 [facility] [place] [facility] [address] [id number] [place] [address] 13 Nov, 2011 [facility] [place] [facility] [address] [id number] [place] [address] Nov, [facility] [place] [facility] [address] [id number] [place] [address] Nov, [facility] [place] [facility] [address] [id number] [place] [address] Nov, [facility] [place] [facility] [address] [id number] [place] [address] Nov, [facility] [place] [facility] [address] [id number] [place] [address] Nov, [facility] [place] [facility] [address] [id number] [place] [address] Oct, [facility] [place] [facility] [address] [id number] [place] [address] Oct, [facility] [place] [facility] [address] [id number] [place] [address] Oct, [facility] [address] [id number] [place] [address] Oct, [facility] [address] [id number] [place] [address] Oct, [facility] [address] [id number] [place] [address] Oct, [facility] [address] [id number] [place] [address] Oct, [facility] [address] [id number] [place] [address] Sep, [facility] [address] [id number] [place] [address] Sep, [facility] [address] [id number] [place] [address] August, [facility] [address] [id number] [place] [address] August, [facility] [address] [id number] [place] [address] 4[address] August, [facility] [address] [id number] [place] [address] August, [facility] [address] [id number] [place] [address] 1434 Jul, [facility] [address] [id number] [place] [address] 80[address] Jul, [facility] [place] [facility] [address] [id number] [place] [address] 65[address] Jul, [facility] [place] [facility] [address] [id number] [place] [address] 18[address] Jul, [facility] [address] [id number] [place] [address] Jul, [facility] [address] [id number] [place] [address] 4885 Jul, [facility] [place] [facility] [address] [id number] [place] [address] 3826 Jul, [facility] [place] [facility] [address] [id number] [place] [address] 2726 Jul, [facility] [place] [facility] [address] [id number] [place] [address] 4[address] Jul, [facility] [place] [facility] [address] [id number] [place] [address]497 Jun, [facility] [place] [facility] [address] [id number] [place] [address] Jun, [facility] [place] [facility] [address] [id number] [place] [address] 3[address] 15 Jun, 2011 [facility] [place] [facility] [address] [id number] [place] [address] 14 Jun, 2011 [facility] [place] [facility] [address] [id number] [place] [address] 1565 Jun, [facility] [place] [facility] [address] [id number] [place] [address] 17[address] Jun, [facility] [place] [facility] [address] [id number] [place] [address] 59[address] Jun, [facility] [place] [facility] [address] [id number], [place] [address] May, [facility] [place] [facility] [address] [id number] [place] [address] 24 May, 2011 [facility] [place] [facility] [address] [id number] [place] [address] 6[address] May, [facility] [place] [facility] [address] [id number] [place] [address] 3256 May, [facility] [place] [facility] [address] [id number] [place] [address] 8966 03 May, 2011 [facility] [address] [id number] [place] [address] Apr, [facility] [place] [facility] [address] [id number] [place] [address] 36[address] Apr, [facility] [address] [id number] [place] [address] Apr, [facility] [place] [facility] [address] [id number] [place] [address] 9020 Apr, [facility] [address] [id number] [place] [address] 8796 Apr, [facility] [place] [facility] [address] [id number] [place] [address] Mar, [facility] [address] [id number] [place] [address] 4[address] Mar, [facility] [place] [facility] [address] [id number] [place] [address] 8254 Mar, [facility] [place] [facility] [address] [id number] [place] [address] 1806 Mar, [facility] [place] [facility] [address] [facility] [id number] [place] [address] Mar, [facility] [place] [facility] [address] [id number] [place] [address]- 9586 Mar, [facility] [place] [facility] [address] [id number] [place] [address] 2546 Mar, [facility] [place] [facility] [address] [id number] [place] [address] 5937 Feb, [facility] [place] [facility] [address] [id number] [place] [address] 7[address] Feb, [facility] [place] [facility] [address] [id number] [place] [address]- 44[address] Feb, [facility] [place] [facility] [address] [id number] [place] [address] 6215 Feb, [facility] [place] [facility] [address] [id number] [place] [address]- 2602 Jan, [facility] [place] [facility] [address] [id number] [place] [address] Jan, [facility] [place] [facility] [address] [id number] [place] [address] 7262 Jan, [facility] [place] [facility] [address] [id number] [place] [address]- 3554 Jan, [facility] [place] [facility] [address] [id number] [place] [address] 4548 Nov, [facility] [place] [facility] [address] [id number] [place] [address] 2220 Mar, [facility] [place] [facility] [address] [id number] [place] [address]- 6883 Mar, [facility] [place] [facility] [address] [id number] [place] [address]- 3677 Mar, [facility] [place] [facility] [address] [id number] [place] [address]- 9263 Mar, [facility] [place] [facility] [address] [id number] [place] [address]- 1430 Mar, [facility] [place] [facility] [address] [id number] [place] [address] Mar, [facility] [place] [facility] [address] [id number] [place] [address]- 7685 Feb, [facility] [place] [facility] [address] [id number] [place] [address]- 2282 Feb, [facility] [place] [facility] [address] [id number] [place] [address] 46[address] Jan, [facility] [place] [facility] [address] [id number] [place] [address]- [address] Jan, [facility] [address] [facility] [id number] [place] [id number] Jan, IMMUNIZATIONS No Known Immunizations SOCIAL HISTORY Never Assessed REASON FOR VISIT Lab (walk-in)--[facility] PLAN OF CARE VITAL SIGNS MEDICATIONS Unknown Medications RESULTS No Results PROCEDURES Procedure Date Ordered Result Body Site LAB NOT BILLED BY [facility] Jun 05, 2017 VENIPUNCT, ROUTINE* Jun 05, 2017 INSTRUCTIONS MEDICATIONS ADMINISTERED No Known Medications [...] & 2007 Surgical History Bladder surgery [facility] 03/2016 Hospitalization History Surgeries Only Hospitalization History 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
--- OUTSIDE RECORDS SUMMARY | 2018-05-29 08:14 | XMS REPORT ---
Author Author ISABEL MAE [facility] Address [address] [place] [address] Care Team Providers Care Regulatory Affairs Manager Name Role Phone ISABEL MAE Unavailable PROBLEMS Type Condition ICD9-CM Code SPJ62-AT Code Onset Dates Condition Status SNOMED Code Problem Long-term use of high-risk medication Z79.899 Active 304852741 Problem Abnormal chest CT R93.8 Active 980117556 Problem Generalized anxiety disorder F41.1 Active 11834683 Problem Low back pain M54.5 Active 496236728 Problem Dysthymic disorder F34.1 Active 24977826 Problem Depressed F32.9 Active 04038089 Problem Coronary artery disease involving [place] coronary artery of [place] heart, angina presence unspecified I25.10 Active 6756013038337 Problem Hypothyroid E03.9 Active 85889509 Problem Insomnia G47.00 Active 934466292 Problem Vitamin D deficiency E55.9 Active 24988344 Problem Asthma J45.909 Active 983980943 Problem Chronic kidney disease, unspecified N18.9 Active 725823151 Problem Palpitations R00.2 Active 13896666 Problem Anemia in chronic kidney disease D63.1 Active 715082744586197 Problem Primary osteoarthritis of left knee M17.12 Active 844347423 Problem Bipolar disorder, current episode manic without psychotic features F31.10 Active 938430088 Problem Restless leg syndrome G25.81 Active 84117296 Problem Seasonal allergic rhinitis due to pollen J30.1 Active 68231331 Problem Functional 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 Active 48305356 Problem Chronic kidney disease, stage 4 (severe) N18.4 Active 304565371 Problem Restless leg G25.81 Active 77568573 Problem Mood disorder F39 Active 97933186 Problem Degenerative tear of medial meniscus of left knee M23.204 Active 234912838 Problem Body mass index (BMI) of 40.0-44.9 in adult Z68.41 Active 746511065 Problem Stage 3 chronic kidney disease N18.3 Active 403349645 Problem Asthma with acute exacerbation in adult J45.901 Active 314408598 Problem Other seasonal allergic rhinitis J30.2 Active 946990122 Problem History of colon polyps Z86.010 Active 839255701 Problem History of anemia Z86.2 Active 370079509 Problem Fibromyalgia M79.7 Active 052871175 Problem Essential (primary) hypertension I10 Active 80365079 Problem Hypokalemia E87.6 Active 80244058 Problem Mixed stress and urge urinary incontinence N39.46 Active 033715722 ALLERGIES No Information ENCOUNTERS Encounter Location Date Diagnosis [place] [address] 42563- 6288 Oct, [place] [address] 39347- 7079 Oct, Fibromyalgia M79.7 [place] [address] 80593- 7370 Sep, Restless leg syndrome G25.81 and Restless leg G25.81 [place] [address] [place] [id number] [place] [address] 09103- 8259 Sep, [place] [address] 18816- 8923 Sep, Seasonal allergic rhinitis due to pollen J30.1 ; Screening for breast cancer Z12.31 ; Chest pain at rest R07.9 ; Restless leg syndrome G25.81 ; Essential (primary) hypertension I10 and Depressed F32.9 [place] [address] [place] [id number] [place] [address] 40469- 5290 August, Fibromyalgia M79.7 [place] [address] 16630- 7354 August, [place] [address] 08165- 2603 August, [place] [address] 78170- [address] August, [address] R93.8 [facility] [id number] [place] [address] 41784- 5285 August, Generalized anxiety disorder F41.1 and Major depressive disorder, recurrent episode with anxious distress F33.9 [facility] [address] [place] [id number] [place] [address] 94070- 9756 August, Ab[address] chest [address] R93.8 [facility] [address] [place] [id number] [place] [address] 33015- 8343 Jul, [place] [address] [place] [id number] [place] [address] 84036- 7616 Jul, Chronic kidney disease, stage 4 (severe) N18.4 [place] [address] [place] [id number] [place] [address] 22164- 9147 Jul, [place] [address] [place] [id number] [place] [address] 14975- 8466 Jul, Restless leg G25.81 ; Mixed stress and urge urinary incontinence N39.46 and Fibromyalgia M79.7 [place] [address] [place] [id number] [place] [address] 28232- 0684 Jul, Chronic kidney disease, stage 4 (severe) N18.4 [place] [address] [place] [id number] [place] [address] 63669- 1266 Jun, Orthostatic hypotension I95.1 ; Chronic kidney disease, stage 4 (severe) N18.4 ; Chest wall discomfort R07.89 and Body mass index (BMI) of 40.0-44.9 in adult Z68.41 [place] [address] [place] [id number] [address] 1269 Jun, [place] [address] [place] [id number] [place] [address] 44894- 5170 Jun, Orthostatic hypotension I95.1 [place] [address] [place] [id number] [place] [address] 05304- 0788 Jun, [facility] [address] [place] [id number] [place] [address] 85229 -1376 Jun, Orthostatic hypotension I95.1 ; Dysuria R30.0 and Acute cystitis without hematuria N30.00 [facility] [address] [place] [id number] [place] [address] 44994- 7548 Jun, [facility] [address] [place] [id number] [place] [address] 41031- 1956 Jun, Chronic kidney disease, stage 4 (severe) N18.4 [facility] [address] [place] [id number] [place] [address] 89505- 3930 Jun, Fibromyalgia M79.7 [facility] [address] [place] [id number] [place] [address] 48847- 9586 Jun, [facility] [address] [place] [id number] [place] [address] 91873- 7867 Jun, [facility] [address] [place] [id number] [place] [address] 49806- [address] May, [address] R93.8 and Stage 3 chronic kidney disease N18.3 [facility] [address] [place] [id number] [place] [address] 59758- 9190 May, Chronic kidney disease, stage 4 (severe) N18.4 [facility] [address] [place] [id number] [place] [address] 18853- 2071 May, Chronic kidney disease, stage 4 (severe) N18.4 [facility] [address] [place] [id number] [place] [address] 79316- 3[address] May, [address] R93.8 [facility] [address] [place] [id number] [place] [address] 57017- 9496 May, [facility] [address] [place] [id number] [place] [address] 68788- 0919 May, [facility] [address] [place] [id number] [place] [address] 37890- 7736 May, Generalized anxiety disorder F41.1 and Major depressive disorder, recurrent episode with anxious distress F33.9 [place] [id number] [place] [address] 82176- 8846 May, Mood disorder F39 [facility] [id number] [place] [address] 34852- 0726 Apr, [facility] [address] [place] [id number] [place] [address] 63719- 2116 Apr, Infected skin lesion L08.9 and Muscle strain of right shoulder region, initial encounter S46.911A [place] [address] [place] [id number] [place] [address] 15386- 4938 Apr, Generalized anxiety disorder F41.1 and Major depressive disorder, recurrent episode with anxious distress F33.9 [place] [address] [place] [id number] [place] [address] 60019- 1870 Apr, [facility] [address] [place] [id number] [place] [address] 37924- 3241 Apr, Recent urinary tract infection Z87.440 and Hypothyroid E03.9 [place] [address] [place] [id number] [place] [address] 69847- 6680 Apr, Generalized anxiety disorder F41.1 and Major depressive disorder, recurrent episode with anxious distress F33.9 [place] [address] [place] [id number] [place] [address] 31715- 4057 Apr, Recent urinary tract infection Z87.440 [place] [id number] [place] [address] 51576- 3791 Mar, [facility] [address] [place] [id number] [place] [address] 98775 -1817 Mar, Dysuria R30.0 ; Acute cystitis without hematuria N30.00 and BMI 40.0-44.9, adult Z68.41 [place] [address] [place] [id number] [place] [address] 17611- 6421 14 Mar, 2017 [facility] [id number] [place] [address] 11734- 0252 Mar, [facility] [address] [place] [id number] [place] [address] 64159- 2073 Mar, Generalized anxiety disorder F41.1 and Major depressive disorder, recurrent episode with anxious distress F33.9 [facility] [address] [place] [id number] [place] [address] 84102- 8201 Feb, Conjunctivitis, bacterial H10.9 [place] [address] [place] [id number] [place] [address] 13939- 3320 Feb, [facility] [address] [place] [id number] [place] [address] 28619 -9073 Feb, Conjunctivitis, bacterial H10.9 [place] [address] [place] [id number] [place] [address] 41237- 7295 Feb, [facility] [address] [place] [id number] [place] [address] 72999 -1231 Feb, Dysuria R30.0 ; Acute cystitis N30.00 and BMI 40.0-44.9, adult Z68.41 [place] [address] [place] [id number] [place] [address] 20972- 0345 Feb, [place] [address] [place] [id number] [place] [address] 94516- 3494 Feb, Generalized anxiety disorder F41.1 and Major depressive disorder, recurrent episode with anxious distress F33.9 [place] [address] [place] [id number] [place] [address] 85891- 7636 Feb, Mood disorder F39 and BMI 40.0-44.9, adult Z68.41 [facility] [id number] [place] [address] 21149- 2163 Jan, [facility] [address] [place] [id number] [place] [address] 12901- 2098 Jan, [place] [id number] [place] [address] 70846- 3554 Jan, Hypothyroid E03.9 [place] [address] [place] [id number] [place] [address] 15758- 2286 Jan, [place] [address] [place] [id number] [place] [address] 07373- 3060 Jan, Chronic kidney disease, unspecified N18.9 ; Hypokalemia E87.6 ; Essential (primary) hypertension I10 ; Fibromyalgia M79.7 ; Coronary artery disease involving [place] coronary artery of [place] heart, angina presence unspecified I25.10 ; Hypothyroid E03.9 and Encounter for immunization Z23 [place] [address] [place] [id number] [place] [address] 12366- 6893 Jan, Hypothyroid E03.9 [place] [address] [place] [id number] [place] [address] 45077- 5657 Jan, [place] [address] [place] [id number] [place] [address] 19465- 5200 Dec, Vitamin D deficiency E55.9 [place] [address] [place] [id number] [place] [address] 82260- 5504 Dec, Primary osteoarthritis of left knee M17.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 [place] [address] [place] [id number] [place] [address] 04363- 2388 19 Dec, 2016 Fibromyalgia M79.7 [place] [address] [place] [id number] [place] [address] 41457- 1385 18 Dec, 2016 Mood disorder F39 [place] [address] [place] [id number] [place] [address] 77491- 2197 13 Dec, 2016 [place] [address] [place] [id number] [place] [address] 76147- 6657 13 Dec, 2016 Generalized anxiety disorder F41.1 and Major depressive disorder, recurrent episode with anxious distress F33.9 [place] [address] [place] [address]- 0702 11 Dec, 2016 [facility] [id number] [place] [address] 65466- 2804 08 Dec, 2016 Streptococcal meningitis G00.2 [facility] [id number] [place] [address] 84035- 1920 07 Dec, 2016 Streptococcal meningitis G00.2 [facility] [id number] [place] [address] 71240- 8657 07 Dec, 2016 [facility] [id number] [place] [address] 26467- 3479 06 Dec, 2016 Streptococcal meningitis G00.2 [facility] [id number] [place] [address] 82213- 2864 Dec, 2016 [facility] [address] [place] [address] 87630- 3229 Dec, 2016 Major depressive disorder, recurrent episode with anxious distress F33.9 [facility] [address] [place] [address] 09109- 7119 Nov, Fever, unspecified fever cause R50.9 [facility] [id number] [place] [address] 72390- 1458 24 Nov, 2016 [facility] [address] [place] [address] 11574- 6075 Nov, Hypothyroid E03.9 [facility] [id number] [place] [address] 06445- 7469 Nov, Generalized anxiety disorder F41.1 and Major depressive disorder, recurrent episode with anxious distress F33.9 [facility] [id number] [place] [address] 21095- 9892 Nov, [facility] [address] [id number] Oct, Dental examination Z01.20 [facility] [address] [place] [id number] [place] [address] 58803- 3905 Oct, Generalized anxiety disorder F41.1 and Major depressive disorder, recurrent episode with anxious distress F33.9 [place] [id number] [place] [address] 29146- 6747 Oct, Chronic kidney disease, stage 4 (severe) N18.4 [place] [address] [place] [id number] [place] [address] 95926- 7863 Oct, [place] [address] [place] [id number] [place] [address] 56594- 5673 Oct, Fibromyalgia M79.7 [place] [address] [place] [id number] [place] [address] 85251- 1260 Oct, [place] [address] [place] [id number] [place] [address] 64579- 4132 Oct, Generalized anxiety disorder F41.1 ; Major depressive disorder, recurrent episode with anxious distress F33.9 and Bipolar disorder, current episode manic without psychotic features F31.10 [place] [address] [address]- 8144 Sep, [place] [address] [place] [id number] [place] [address] 67949- 2646 Sep, [place] [address] [place] [address] 71986- 8079 Sep, Vitamin D deficiency E55.9 [place] [address] [address]- 4718 Sep, Vitamin D deficiency E55.9 [place] [address] [place] [address] 10961- 2547 Sep, [place] [address] [place] [id number] [place] [address] 97097- 5173 Sep, Chronic kidney disease, stage 4 (severe) N18.4 ; Hypothyroid E03.9 ; Restless leg G25.81 ; Fibromyalgia M79.7 ; Essential ( primary) hypertension I10 ; Vitamin D deficiency E55.9 ; Dyspepsia R10.13 ; Anemia in chronic kidney disease D63.1 ; Chronic kidney disease, unspecified N18.9 ; Coronary artery disease involving [place] coronary artery of [place] heart , angina presence unspecified I25.10 ; Screening breast examination Z12.39 and Low back pain M54.5 [place] [address] [place] [id number] [place] [address] 54537- 5343 August, Generalized anxiety disorder F41.1 and Major depressive disorder, recurrent episode with anxious distress F33.9 [place] [address] [place] [id number] [place] [address] 70417- 7936 August, Generalized anxiety disorder F41.1 and Major depressive disorder, recurrent episode with anxious distress F33.9 [place] [address] [place] [id number] [place] [address] 96260- 0650 August, Fibromyalgia M79.7 [place] [address] 01473- 3262 Jul, Generalized anxiety disorder F41.1 and Major depressive disorder, recurrent episode with anxious distress F33.9 [place] [address] [place] [id number] [place] [address] 59250- 4214 Jul, Fibromyalgia M79.7 [place] [address] [place] [id number] [place] [address] 42098- 0570 Jul, Generalized anxiety disorder F41.1 [place] [address] [place] [id number] [place] [address] 29764- 8069 May, [place] [address] [place] [id number] [place] [address] 29072- 5503 May, Hypothyroid E03.9 [place] [address] [place] [id number] [place] [address] 17636- 8460 May, Chronic kidney disease, stage 4 (severe) N18.4 ; Hypothyroid E03.9 ; Restless leg G25.81 ; Fibromyalgia M79.7 ; Essential ( primary) hypertension I10 ; Vitamin D deficiency E55.9 ; Dyspepsia R10.13 ; Acute non-recurrent maxillary sinusitis J01.00 ; Anemia in chronic kidney disease D63.1 ; Chronic kidney disease, unspecified N18.9 and Coronary artery disease involving [place] coronary artery of [place] heart, angina presence unspecified I25.10 [facility] [address] [place] [id number] [place] [address] 41299- 7180 May, Vitamin D deficiency, unspecified E55.9 [place] [address] [place] [id number] [place] [address] 22985- 0970 May, Generalized anxiety disorder F41.1 and Major depressive disorder, recurrent episode with anxious distress F33.9 [place] [address] [place] [id number] [place] [address] 50013- 4131 Apr, Pain in right knee M25.561 and Pain in left knee M25.562 [place] [address] [place] [id number] [place] [address] 79991- 5639 Apr, [place] [address] [place] [id number] [place] [address] 06001- 8324 Apr, [facility] [address] [place] [address] 83053- 6539 Apr, [place] [address] [place] [id number] [place] [address] 11141- 3849 Mar, Generalized anxiety disorder F41.1 and Major depressive disorder, recurrent episode with anxious distress F33.9 [place] [address] [place] [address] 55876- 6727 Mar, Generalized anxiety disorder F41.1 and Major depressive disorder, recurrent episode with anxious distress F33.9 [place] [address] [place] [id number] [place] [address] 30880- 4038 Mar, [facility] [address] [place] [id number] [place] [address] 17963- 9988 Mar, [place] [address] [place] [id number] [place] [address] 49689- 6131 Mar, [place] [address] [place] [id number] [place] [address] 50027- 6925 Mar, Asthma J45.909 and Fibromyalgia M79.7 [place] [address] [place] [id number] [place] [address] 10260 2546 Mar, Chronic kidney disease, stage 4 (severe) N18.4 ; Vitamin D deficiency E55.9 and Essential (primary) hypertension I10 [place] [address] 88434- 6313 Feb, [place] [address] 62600- 7692 Feb, Dysuria R30.0 ; Mixed stress and urge urinary incontinence N39.46 ; Fibromyalgia M79.7 and Chronic kidney disease, stage IV (severe) N18.4 [place] [address] 09635- 5776 Feb, Chronic kidney disease, stage 4 (severe) N18.4 [place] [address] 23321- 4314 Feb, Chronic kidney disease, stage 4 (severe) N18.4 [place] [address] [place] [id number] [place] [address] 24113- 7096 Feb, [place] [address] [place] [id number] [place] [address] 30306- 4415 Feb, Vitamin D deficiency, unspecified E55.9 [place] [address] [place] [id number] [place] [address] 91319 2546 Jan, [place] [address] 70764 2546 Jan, [place] [address] [place] [id number] [place] [address] 17404 2546 Dec, [place] [address] [place] [id number] [place] [address] 73759 2542 Dec, Chronic kidney disease, stage 4 (severe) N18.4 [facility] [address] [place] [id number] [place] [address] 24205- 0659 28 Dec, 2015 Dysthymic disorder F34.1 and Generalized anxiety disorder F41.1 [facility] [address] [place] [id number] [place] [address] 83413- 2542 Dec, [facility] [address] [place] [id number] [place] [address] 09067- 9818 Dec, [facility] [address] [place] [id number] [place] [address] 46300- 0030 Dec, Dysthymic disorder F34.1 and Generalized anxiety disorder F41.1 [place] [address] [place] [id number] [place] [address] 19831- 6261 Dec, Dysuria R30.0 ; Chronic kidney disease, stage 4 (severe) N18.4 ; Hypertension I10 ; Dyspepsia R10.13 ; Yeast dermatitis B37.2 ; Palpitations R00.2 ; Hypothyroid E03.9 ; Functional diarrhea K59.1 and Other seasonal allergic rhinitis J30.[address] [facility] [address] [place] [id number] [place] [address] 55589 -1906 Dec, [facility] [address] [place] [id number] [place] [address] 88419 -6657 Nov, Dysuria R30.0 and Stress incontinence N39.3 [facility] [address] [place] [id number] [place] [address] 42689- 3491 Nov, [facility] [address] [place] [id number] [place] [address] 76979- 7185 Nov, [facility] [address] [place] [id number] [place] [address] 56323- 0340 Nov, Osteoarthritis of knees, bilateral M17.0 [facility] [address] [place] [id number] [place] [address] 33754- 8453 Nov, Dysthymic disorder F34.1 and Generalized anxiety disorder F41.1 [facility] [address], [place] [address]- 1572 Nov, [facility] [address] [place] [id number] [place] [address] 50149- 0291 Nov, [facility] [address] [place] [id number] [place] [address] 05309- 5320 Nov, Urgency of urination R39.15 [facility] [address] [place] [id number] [place] [address] 91119- 4718 Nov, [facility] [address] [place] [id number] [place] [address] 24261- 1048 Nov, Chronic kidney disease, stage 4 (severe) N18.4 [facility] [address] [place] [id number] [place] [address] 05946- 1871 Oct, Hypertension I10 ; Coronary artery disease involving [place] coronary artery of [place] heart, angina presence unspecified I25.10 ; Palpitations R00.2 ; Hypothyroid E03.9 ; Right foot pain M79.671 ; Functional diarrhea K59.1 and Other seasonal allergic rhinitis J30.2 [facility] [id number] [place] [address] [phone] Oct, Dysthymic disorder F34.1 and Generalized anxiety disorder F41.1 [facility] [id number] [place] [address] [phone] Sep, [facility] [id number] [place] [address] [phone] Sep, [facility] [id number] [place] [address] [phone] Sep, [facility] [id number] [place] [address] [phone] Sep, [facility] [id number] [place] [address] [phone] Sep, [facility] [address] [place] [phone] 27 Sep, 2015 Dysthymic disorder F34.1 and Generalized anxiety disorder F41.1 [place] [address] [phone] 16 Sep, 2015 Asthma with acute exacerbation in adult J45.901 ; Dysuria R30.0 ; Chronic kidney disease, stage 4 (severe) N18.4 and History of anemia Z86.2 [place] [address] 15518- 4693 2015 Generalized anxiety disorder F41.1 and Dysthymic disorder F34.[address] 39079- 4040 August, Screening breast examination Z12.39 and Acute recurrent maxillary sinusitis J01.[address] 13289- 1531 August, Osteoarthritis of knees, bilateral M17.[address] 16903- 7597 August, Chronic kidney disease, stage 4 (severe) N18.4 ; Acute non- recurrent maxillary sinusitis J01.00 ; Urinary problem R39.89 ; Bowel habit changes R19.4 ; Functional diarrhea K59.1 and History of colon polyps Z86.010 [place] [id number] [place] [address] 51414- 6237 Jul, Dysthymic disorder F34.1 and Generalized anxiety disorder F41.1 [place] [id number] [place] [address] 15401- 6230 Jul, [address] 65322- 8475 Jul, Dysthymic disorder F34.1 ; Generalized anxiety disorder F41.1 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.[address] 44793- 0215 Jul, [facility] [id number] [place] [address] 55994- 0689 Jun, [facility] [address] [place] [id number] [place] [address] 18994- 1052 Jun, [facility] [address] [place] [id number] [place] [address] 96102- 6728 May, [facility] [address] [place] [id number] [place] [address] 30572- 0874 May, Dysthymic disorder F34.1 and Generalized anxiety disorder F41.1 [place] [address] [place] [id number] [place] [address] 76490- 3393 Apr, Kidney disease N28.9 [place] [address] [place] [id number] [place] [address] 47491- 2308 Apr, Generalized anxiety disorder F41.1 and Dysthymic disorder F34.1 [place] [address] [place] [id number] [place] [address] 68284- 8091 Apr, Chronic kidney disease, stage 4 (severe) N18.4 [place] [address] [place] [id number] [place] [address] 77998- 5122 Apr, Generalized anxiety disorder F41.1 ; Major depression, recurrent F33.9 and Sleep disturbance G47.9 [place] [address] [place] [id number] [place] [address] 22263- 2241 Mar, Generalized anxiety disorder F41.1 and Dysthymic disorder F34.1 [place] [address] [place] [id number] [place] [address] 70324- 2665 Mar, Generalized anxiety disorder F41.1 ; Dysthymic disorder F34.1 and Insomnia G47.00 [place] [address] [place] [id number] [place] [address] 63704- 3181 Mar, [place] [address] [place] [id number] [place] [address] 41750- 8947 Mar, [facility] [id number] [place] [address] 55415- 7546 Mar, Osteoarthritis of knees, bilateral M17.0 [place] [address] [place] [id number] [place] [address] 11100- 1634 Mar, Hypertension I10 ; Hypothyroid E03.9 ; Dysthymic disorder F34.1 ; Chronic kidney disease, stage 4 (severe) N18.4 and Nausea & vomiting R11.2 [place] [address] [place] [id number] [place] [address] 08458- 0561 Mar, Generalized anxiety disorder F41.1 ; Dysthymic disorder F34.1 and Insomnia G47.00 [place] [address] [place] [id number] [place] [address] 22632- 9528 Mar, Dehydration E86.0 ; Chronic kidney disease, stage 4 (severe ) N18.4 and Nausea & vomiting R11.2 [facility] [address] [place] [id number] [place] [address] 30598 -1397 Mar, Gastroenteritis K52.9 [place] [address] 94784- 8760 Mar, [place] [address] [place] [id number] [place] [address] 43324- 5573 Mar, [place] [address] [place] [id number] [place] [address] 20055- 5396 Feb, Dysthymic disorder F34.1 and Generalized anxiety disorder F41.1 [place] [address] [place] [id number] [place] [address] 17414- 5131 Jan, UTI (urinary tract infection) N39.0 ; Asthma J45.909 ; Coronary artery disease involving [place] coronary artery of [place] heart, angina presence unspecified I25.10 ; Hypertension I10 ; Hypothyroid E03.9 ; Vitamin D deficiency E55.9 ; Insomnia G47.00 ; Palpitations R00.2 ; Depressed F32.9 ; Restless leg G25.81 and Anxiety F41.9 [place] [id number] [place] [address] 89526- 5578 19 Jan, 2015 Dysthymic disorder F34.1 and Generalized anxiety disorder F41.1 [place] [address] [place] [id number] [place] [address] 02510- 4175 Jan, [place] [address] [place] [id number] [place] [address] 84697- 6641 Dec, [place] [address] [place] [id number] [place] [address] 17916- 8320 28 Dec, 2014 Alkalosis 276.3 ; Chronic kidney disease, 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.4 ; Hyperpotassemia 276.7 ; Secondary hyperparathyroidism, renal 588.81 ; Proteinuria 791.0 ; Unspecified vitamin D deficiency 268.9 ; Anemia in chronic kidney disease 285.21 ; Other and unspecified hyperlipidemia 272.4 ; Hypertension, essential, benign 401.1 and Chronic kidney disease (CKD), stage III (moderate) 585.3 [place] [address] [place] [id number] [place] [address] 53063- 8012 Dec, [place] [address] [place] [id number] [place] [address] 74116- 7088 16 Dec, 2014 Depressive disorder, not elsewhere classified 311 and Generalized anxiety disorder 300.02 [place] [address] [place] [id number] [place] [address] 93826- 3057 10 Dec, 2014 [place] [address] [place] [id number] [place] [address] 34630- 4556 08 Dec, 2014 [place] [address] [place] [id number] [place] [address] 04229- 8914 Nov, Depressive disorder, not elsewhere classified 311 and Generalized anxiety disorder 300.02 [place] [address] [place] [id number] [place] [address] 21621- 3580 Nov, Arthritis of both knees 716.96 [place] [address] [place] [id number] [place] [address] 99946- 5434 Nov, PAF (paroxysmal atrial fibrillation) 427.31 ; CAD (coronary artery disease) 414.00 ; Chest pain 786.50 and Chronic kidney disease (CKD) stage G4/A1, severely decreased glomerular filtration rate (GFR) between 15-29 mL/min/1.73 square meter and albuminuria creatinine ratio less than 30 mg/g 585.4 [place] [address] [place] [id number] [place] [address] 22250- 9228 Oct, Coronary atherosclerosis of unspecified type of vessel, [place] or graft 414.00 ; Chronic kidney disease, 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.4 ; Hypertension 401.9 and Edema 782.[address] 76645- 2274 Oct, Depressive disorder, not elsewhere classified 311 and Generalized anxiety disorder 300.[address] 34381- 1962 Oct, Depressive disorder, not elsewhere classified 311 and Generalized anxiety disorder 300.02 [place] [address] 58985- 0431 Oct, [address] 60453- 6681 Oct, [place] [address] [place] [id number] [place] [address] 54209- 3891 Sep, [place] [id number] [place] [address] 77717- 6690 Sep, Chronic kidney disease, 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.4 [place] [address] [place] [id number] [place] [address] 18601- 7137 Sep, [address] 03778- 8965 Sep, Coronary atherosclerosis of unspecified type of vessel, [place] or graft 414.00 ; Hypertension 401.9 ; Edema 782.3 and Hypothyroidism 244.[address] 99406- 4823 Sep, Coronary atherosclerosis of unspecified type of vessel, [place] or graft 414.00 ; Hypertension 401.9 ; Fibromyalgia 729.1 ; Edema 782.3 ; Hypothyroidism 244.9 and Anemia 285.9 [facility] [address] [place] [id number] [place] [address] 64271- 2289 Sep, Anxiety disorder, unspecified 300.00 and Depressive disorder , not elsewhere classified 311 [facility] [address] 70686- 4779 Sep, [facility] [address] 24697- 6722 August, Generalized anxiety disorder 300.02 [facility] [address] 34570- 2045 August, Closed fracture of lateral malleolus 824.2 [facility] [address] 64882- 6218 Jul, [facility] [address] 02778- 7761 Jul, [facility] [address] [place] [id number] [place] [address] 58177- 5564 Jun, [facility] [address] [place] [id number] [place] [address] 22275- 0578 Jun, [facility] [address] [place] [id number] [place] [address] 20222- 3679 Jun, [facility] [address] [place] [id number] [place] [address] 72936- 5007 Jun, [facility] [address] 65366- 5468 Jun, [facility] [address] [place] [id number] [place] [address] 83752- 7346 Jun, [facility] [address] [place] [id number] [place] [address] 98195- 2443 May, [facility] [place] [facility] [address] [id number] [place] [address]- 7999 19 May, 2014 [facility] [place] [facility] [address] [id number] [place] [address]- 5056 18 May, 2014 [facility] [place] [facility] [address] [id number] [place] [address] 2546 18 May, 2014 [facility] [place] [facility] [address] [id number] [place] [address]- 7056 16 May, 2014 [facility] [place] [facility] [address] [id number] [place] [address]- 9420 16 May, 2014 [facility] [place] [facility] [address] [id number] [place] [address]- 4926 13 May, 2014 [facility] [place] [facility] [address] [id number] [place] [address]- 2831 13 May, 2014 [facility] [place] [facility] [address] [id number] [place] [address]- 8806 10 May, 2014 [facility] [place] [facility] [address] [id number] [place] [address]- 1014 10 May, 2014 [facility] [place] [facility] [address] [facility] [id number] [place] [address]- 1053 Apr, [facility] [place] [facility] [address] [id number] [place] [address]- 3324 Apr, [facility] [place] [facility] [address] [id number] [place] [address]- 0318 Mar, [facility] [place] [facility] [address] [id number] [place] [address] 2546 Mar, [facility] [place] [facility] [address] [id number] [place] [address]- 2546 Mar, [facility] [place] [facility] [address] [id number] [place] [address]- 2541 Mar, [facility] [place] [facility] [address] [id number] [place] [address]- 4850 15 Mar, 2014 [facility] [place] [facility] [address] [id number] [place] [address]- 5685 15 Mar, 2014 [facility] [place] [facility] [address] [id number] [place] [address]- 5428 Mar, [facility] [place] [facility] [address] [id number] [place] [address]- 3351 Feb, [facility] [place] [facility] [address] [id number] [place] [address]- 9314 Feb, [facility] [place] [facility] [address] [id number] [place] [address]- 6197 Feb, [facility] [place] [facility] [address] [id number] [place] [address]- 7683 Jan, [facility] [place] [facility] [address] [id number] [place] [address]- 8377 Jan, [facility] [place] [facility] [address] [id number] [place] [address]- 4051 Jan, [facility] [place] [facility] [address] [id number] [place] [address]- 2869 Jan, [facility] [place] [facility] [address] [id number] [place] [address]- 3618 Jan, [facility] [place] [facility] [address] [id number] [place] [address]- 4177 Jan, [facility] [place] [facility] [address] [id number], [place] [address]- 9647 Jan, [facility] [place] [facility] [address] [id number], [place] [address]- 1999 Jan, [facility] [place] [facility] [address] [id number], [place] [address]- 5475 Jan, [facility] [place] [facility] [address] [id number], [place] [address]- 2038 Jan, [facility] [place] [facility] [address] [id number] [place] [address]- 9967 Nov, [facility] [place] [facility] [address] [id number] [place] [address]- 5297 Nov, [facility] [place] [facility] [address] [id number] [place] [address]- 0425 Nov, [facility] [place] [facility] [address] [id number] [place] [address]- 5093 Oct, [facility] [place] [facility] [address] [id number] [place] [address]- 2200 Oct, [facility] [place] [facility] [address] [id number] [place] [address]- 4069 Oct, [facility] [place] [facility] [address] [id number] [place] [address]- 6828 Oct, [facility] [place] [facility] [address] [id number] [place] [address]- 4664 Oct, [facility] [place] [facility] [address] [id number] [place] [address]- 3595 Oct, [facility] [place] [facility] [address] [id number] [place] [address]- 0250 Oct, [facility] [place] [facility] [address] [id number] [place] [address]- 8327 Oct, [facility] [place] [facility] [address] [id number] [place] [address]- 3758 Oct, [facility] [place] [facility] [address] [id number] [place] [address]- 4323 Sep, [facility] [place] [facility] [address] [id number] [place] [address]- 1199 Sep, [facility] [place] [facility] [address] [id number] [place] [address]- 8295 Sep, [facility] [place] [facility] [address] [id number] [place] [address]- 9316 Sep, [facility] [place] [facility] [address] [id number] [place] [address]- 2091 Sep, [facility] [place] [facility] [address] [id number] [place] [address]- 4453 Sep, [facility] [place] [facility] [address] [id number] [place] [address]- 8690 Sep, [facility] [place] [facility] [address] [id number] [place] [address]- 6756 Sep, [facility] [place] [facility] [address] [id number] [place] [address]- 9085 Sep, [facility] [place] [facility] [address] [id number] [place] [address]- 9961 August, [facility] [place] [facility] [address] [id number] [place] [address]- 5375 August, [facility] [place] [facility] [address] [id number] [place] [address]- 7307 August, [facility] [place] [facility] [address] [id number] [place] [address]- 3236 August, [facility] [place] [facility] [address] [id number] [place] [address]- 5705 August, [facility] [place] [facility] [address] [id number], [place] [address]- 1549 August, [facility] [place] [facility] [address] [id number], [place] [address]- 8762 Jul, [facility] [place] [facility] [address] [id number] [place] [address]- 1895 Jul, [facility] [place] [facility] [address] [id number] [place] [address]- 4394 Jul, [facility] [place] [facility] [address] [id number] [place] [address]- 8295 Jul, [facility] [place] [facility] [address] [id number] [place] [address]- 7640 07 Jul, 2013 [facility] [place] [facility] [address] [id number] [place] [address]- 4326 Jul, [facility] [place] [facility] [address] [id number] [place] [address]- 7476 Jun, [facility] [place] [facility] [address] [id number] [place] [address]- 4670 Jun, [facility] [place] [facility] [address] [id number] [place] [address]- 4952 May, [facility] [place] [facility] [address] [id number] [place] [address]- 8486 May, [facility] [place] [facility] [address] [id number] [place] [address]- 1216 May, [facility] [place] [facility] [address] [facility] [id number] [place] [address]- 9283 May, [facility] [place] [facility] [address] [id number] [place] [address]- 4184 Apr, [facility] [place] [facility] [address] [id number] [place] [address]- 5914 Apr, [facility] [place] [facility] [address] [facility] [id number] [place] [address]- 2185 Mar, [facility] [place] [facility] [address] [id number] [place] [address]- 3468 18 Mar, 2013 [facility] [place] [facility] [address] [id number] [place] [address] 2545 17 Mar, 2013 [facility] [place] [facility] [address] [id number] [place] [address]- 3416 Mar, [facility] [place] [facility] [address] [facility] [id number] [place] [address]- 0836 05 Mar, 2013 [facility] [place] [facility] [address] [facility] [id number] [place] [address]- 0151 Mar, [facility] [place] [facility] [address] [id number] [place] [address]- 6259 Feb, [facility] [place] [facility] [address] [id number] [place] [address]- 5132 Feb, [facility] [place] [facility] [address] [id number] [place] [address]- 6627 Feb, [facility] [place] [facility] [address] [id number] [place] [address]- 4215 Feb, [facility] [place] [facility] [address] [id number] [place] [address]- 7740 Feb, [facility] [place] [facility] [address] [id number] [place] [address]- 2183 Feb, [facility] [place] [facility] [address] [id number] [place] [address]- 4701 Jan, [facility] [place] [facility] [address] [id number] [place] [address]- 7762 Jan, [facility] [place] [facility] [address] [id number] [place] [address]- 8437 Jan, [facility] [place] [facility] [address] [id number] [place] [address]- 2099 Jan, [facility] [place] [facility] [address] [id number] [place] [address]- 1092 Jan, [facility] [place] [facility] [address] [id number], [place] [address]- 7687 Jan, [facility] [place] [facility] [address] [id number] [place] [address]- 7939 12 Dec, 2012 [facility] [place] [facility] [address] [id number] [place] [address]- 6883 09 Dec, 2012 [facility] [place] [facility] [address] [id number] [place] [address]- 5336 16 Nov, 2012 [facility] [place] [facility] [address] [id number] [place] [address]- 4963 Nov, [facility] [address] [id number] [place] [address]- 4006 Oct, [facility] [place] [facility] [address] [id number] [place] [address]- 7492 Oct, [facility] [address] [id number] [place] [address]- 8933 Oct, [facility] [address] [id number] [place] [address]- 0837 Oct, [facility] [address] [id number] [place] [address]- 0324 Oct, [facility] [address] [id number] [place] [address]- 5083 Oct, [facility] [address] [id number] [place] [address]- 0408 Sep, [facility] [address] [id number] [place] [address]- 4694 Sep, [facility] [address] [id number] [place] [address]- 8908 Sep, [facility] [address] [id number] [place] [address]- 5635 Sep, [facility] [address] [id number] [place] [address]- 1580 August, [facility] [place] [facility] [address] [id number] [place] [address]- 5328 August, [facility] [place] [facility] [address] [id number] [place] [address]- 9402 August, [facility] [place] [facility] [address] [id number] [place] [address]- 6574 August, [facility] [place] [facility] [address] [id number] [place] [address]- 4334 August, [facility] [address] [id number] [place] [address] Jul, [facility] [address] [id number] [place] [address] Jul, [facility] [address] [id number] [place] [address] Jul, [facility] [address] [id number] [place] [address] Jul, [facility] [address] [id number] [place] [address] Jul, [facility] [address] [id number] [place] [address] Jul, [facility] [address] [id number] [place] [address] Jul, [facility] [address] [id number] [place] [address] Jul, [facility] [address] [id number] [place] [address] Jul, [facility] [address] [id number] [place] [address] Jul, [facility] [address] [id number] [id number] Jun, [facility] [address] [id number] [place] [address] Jun, [facility] [address] [id number] [place] [address] Jun, [facility] [place] [facility] [address] [id number] [place] [address] Jun, [facility] [place] [facility] [address] [id number] [place] [address] Jun, [facility] [address] [id number] [place] [address] May, [facility] [address] [id number] [place] [address] May, [facility] [place] [facility] [address] [id number] [place] [address] May, [facility] [address] [id number] [place] [address] Apr, [facility] [place] [facility] [address] [id number] [place] [address] Apr, [facility] [address] [id number] [place] [address] Apr, [facility] [place] [facility] [address] [id number] [place] [address] Apr, [facility] [address] [facility] [id number] [place] [address] Apr, [facility] [address] [id number] [place] [address] Apr, [facility] [address] [id number] [place] [address] Mar, [facility] [place] [facility] [address] [id number] [place] [address] Mar, [facility] [place] [facility] [address] [id number], [place] [address] Mar, [facility] [place] [facility] [address] [id number], [place] [address] Mar, [facility] [place] [facility] [address] [id number] [place] [address] Feb, [facility] [place] [facility] [address] [id number] [place] [address] Feb, [facility] [place] [facility] [address] [facility] [id number] [place] [address] Feb, [facility] [place] [facility] [address] [id number] [place] [address] Feb, [facility] [place] [facility] [address] [id number] [place] [address] Feb, [facility] [place] [facility] [address] [id number] [place] [address] Feb, [facility] [place] [facility] [address] [id number] [place] [address] Feb, [facility] [place] [facility] [address] [id number] [place] [address] Feb, [facility] [place] [facility] [address] [id number] [place] [address] Feb, [facility] [place] [facility] [address] [id number] [place] [address] Feb, [facility] [place] [facility] [address] [id number] [place] [address] Feb, [facility] [place] [facility] [address] [id number] [place] [address] Feb, [facility] [place] [facility] [address] [id number] [place] [address]- [address] Feb, [facility] [place] [facility] [address] [facility] [id number] [place] [address] Feb, [facility] [place] [facility] [address] [id number] [place] [address] Feb, [facility] [place] [facility] [address] [id number], [place] [address] Feb, [facility] [place] [facility] [address] [id number] [place] [address] Jan, [facility] [place] [facility] [address] [id number] [place] [address] Jan, [facility] [place] [facility] [address] [id number], [place] [address] Jan, [facility] [place] [facility] [address] [id number] [place] [address] 31 Jan, 2012 [facility] [place] [facility] [address] [id number] [place] [address] 30 Jan, 2012 [facility] [place] [facility] [address] [id number] [place] [address] Jan, [facility] [place] [facility] [address] [id number] [place] [address]- [address] 25 Jan, 2012 [facility] [place] [facility] [address] [id number] [place] [address] 16 Jan, 2012 [facility] [place] [facility] [address] [id number] [place] [address] 16 Jan, 2012 [facility] [place] [facility] [address] [id number] [place] [address] 15 Jan, 2012 [facility] [place] [facility] [address] [id number] [place] [address] 15 Jan, 2012 [facility] [place] [facility] [address] [id number] [place] [address] Jan, [facility] [place] [facility] [address] [id number] [place] [address] 26 Dec, 2011 [facility] [place] [facility] [address] [id number] [place] [address] 112[address] 26 Sep2011 [facility] [place] [facility] [address] [id number] [place] [address] 2299 24 Sep2011 [facility] [place] [facility] [address] [id number] [place] [address] 6969 23 Sep2011 [facility] [place] [facility] [address] [id number] [place] [address]- 2542 22 Sep2011 [facility] [place] [facility] [address] [id number] [place] [address] 7981 21 Sep2011 [facility] [place] [facility] [address] [id number] [place] [address] 20 Dec, 2011 [facility] [place] [facility] [address] [id number] [place] [address] 20 Dec, 2011 [facility] [place] [facility] [address] [id number] [place] [address] 07 Dec, 2011 [facility] [place] [facility] [address] [id number] [place] [address]- [address]266 06 Dec, 2011 [facility] [place] [facility] [address] [id number] [place] [address] 49[address] 06 Dec, 2011 [facility] [place] [facility] [address] [id number] [place] [address] 05 Dec, 2011 [facility] [place] [facility] [address] [id number] [place] [address] 7[address] 23 Nov, 2011 [facility] [place] [facility] [address] [id number] [place] [address]798 17 Nov, 2011 [facility] [place] [facility] [address] [id number] [place] [address]- 2872 13 Nov, 2011 [facility] [place] [facility] [address] [id number] [place] [address] Nov, [facility] [place] [facility] [address] [id number] [place] [address] 74[address] Nov, [facility] [place] [facility] [address] [id number] [place] [address] Nov, [facility] [place] [facility] [address] [id number] [place] [address] Nov, [facility] [place] [facility] [address] [id number] [place] [address]- 6469 Nov, [facility] [place] [facility] [address] [id number] [place] [address] 5844 Oct, [facility] [place] [facility] [address] [id number] [place] [address] 7410 Oct, [facility] [place] [facility] [address] [id number] [place] [address] 7765 Oct, [facility] [address] [id number] [place] [address]373 Oct, [facility] [address] [id number] [place] [address] 6086 Oct, [facility] [address] [id number] [place] [address] 4[address] Oct, [facility] [address] [id number] [place] [address] Oct, [facility] [address] [id number] [place] [address] 8961 Sep, [facility] [address] [id number] [place] [address] 2744 Sep, [facility] [address] [id number] [place] [address] 2765 August, [facility] [address] [id number] [place] [address] 35[address] August, [facility] [address] [id number] [place] [address] 2824 August, [facility] [address] [id number] [place] [address] 5[address] August, [facility] [address] [id number] [place] [address]61 Jul, [facility] [address] [id number] [place] [address] 64[address] Jul, [facility] [place] [facility] [address] [id number] [place] [address]- 9252 Jul, [facility] [place] [facility] [address] [id number] [place] [address]- 6836 Jul, [facility] [address] [id number] [place] [address]- 7149 Jul, [facility] [address] [id number] [place] [address]- 8573 Jul, [facility] [place] [facility] [address] [id number] [place] [address]- 9076 Jul, [facility] [place] [facility] [address] [id number] [place] [address]- 8176 Jul, [facility] [place] [facility] [address] [id number] [place] [address]- 8206 Jul, [facility] [place] [facility] [address] [id number] [place] [address]- 3092 Jun, [facility] [place] [facility] [address] [id number] [place] [address]- 5656 Jun, [facility] [place] [facility] [address] [id number] [place] [address]- 6506 15 Jun, 2011 [facility] [place] [facility] [address] [id number] [place] [address]- 7919 14 Jun, 2011 [facility] [place] [facility] [address] [id number] [place] [address]- 9375 Jun, [facility] [place] [facility] [address] [id number] [place] [address]- 7905 Jun, [facility] [place] [facility] [address] [id number] [place] [address]- 6046 Jun, [facility] [place] [facility] [address] [id number], [place] [address] May, [facility] [place] [facility] [address] [id number] [place] [address] 3813 24 May, 2011 [facility] [place] [facility] [address] [id number] [place] [address] 4556 May, [facility] [place] [facility] [address] [id number] [place] [address]- 6916 May, [facility] [place] [facility] [address] [id number] [place] [address]- 7186 03 May, 2011 [facility] [address] [id number] [place] [address]- 9416 Apr, [facility] [place] [facility] [address] [id number] [place] [address]- 9956 Apr, [facility] [address] [id number] [place] [address]- 5766 Apr, [facility] [place] [facility] [address] [id number] [place] [address]- 8261 Apr, [facility] [address] [id number] [place] [address]- 9186 Apr, [facility] [place] [facility] [address] [id number] [place] [address]- 2759 Mar, [facility] [address] [id number] [place] [address]- 7302 Mar, [facility] [place] [facility] [address] [id number] [place] [address]- 0053 Mar, [facility] [place] [facility] [address] [id number] [place] [address]- 9176 Mar, [facility] [place] [facility] [address] [id number] [place] [address]- 3030 Mar, [facility] [place] [facility] [address] [id number] [place] [address]- 7806 Mar, [facility] [place] [facility] [address] [id number] [place] [address]- 2546 Mar, [facility] [place] [facility] [address] [id number] [place] [address]- 8252 Feb, [facility] [place] [facility] [address] [id number] [place] [address]- 0066 Feb, [facility] [place] [facility] [address] [id number] [place] [address]- 5138 Feb, [facility] [place] [facility] [address] [id number] [place] [address]- 0659 Feb, [facility] [place] [facility] [address] [id number] [place] [address]- 5222 Jan, [facility] [place] [facility] [address] [id number] [place] [address]- 6255 Jan, [facility] [place] [facility] [address] [id number] [place] [address]- 9060 Jan, [facility] [place] [facility] [address] [id number] [place] [address]- 1790 Jan, [facility] [place] [facility] [address] [id number] [place] [address]- 0959 Nov, [facility] [place] [facility] [address] [id number] [place] [address]- 7674 Mar, [facility] [place] [facility] [address] [id number] [place] [address]- 7226 Mar, [facility] [place] [facility] [address] [id number] [place] [address]- 0914 Mar, [facility] [place] [facility] [address] [id number] [place] [address]- 6227 Mar, [facility] [place] [facility] [address] [id number] [place] [address]- 6847 Mar, [facility] [place] [facility] [address] [id number] [place] [address]- 7559 Mar, [facility] [place] [facility] [address] [id number] [place] [address]- 2868 Feb, [facility] [place] [facility] [address] [id number] [place] [address]- 7692 Feb, [facility] [place] [facility] [address] [id number] [place] [address]- 2114 Jan, [facility] [place] [facility] [address] [id number] [place] [address]- 1507 14 Jan, 2009 [facility] [address] [id number] [place] [address]- 4985 Jan, IMMUNIZATIONS No Known Immunizations SOCIAL HISTORY Never Assessed REASON FOR VISIT Deferred lab from [facility] PLAN OF CARE VITAL SIGNS MEDICATIONS Unknown [...] History Bladder surgery [facility] 03/2016 Hospitalization History Surgeries Only Hospitalization History 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
[2018-05-29 08:15] LABS: PROTHROMBIN TIME PATIENT 13.2 SEC (12.2-14.7); RBC,URINE RARE /HPF
[2018-05-29] MEDS ORDERED: FLU QUADRIvalent (5+ YOA) 2018-2019 (AFLURIA) 0.5 ML IM ONE (08:15)
--- OUTSIDE RECORDS SUMMARY | 2018-05-29 08:15 | XMS REPORT ---
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 Name Role Phone ISABEL MAE Unavailable PROBLEMS Type Condition ICD9-CM Code GMX01-IN Code Onset Dates Condition Status SNOMED Code Problem Long-term use of high-risk medication Z79.899 Active 912536322 Problem Abnormal chest CT R93.8 Active 891364306 Problem Generalized anxiety disorder F41.1 Active 35286046 Problem Low back pain M54.5 Active 901355148 Problem Dysthymic disorder F34.1 Active 87487911 Problem Depressed F32.9 Active 31127534 Problem Coronary artery disease involving ruby coronary artery of ruby heart, angina presence unspecified I25.10 Active 9370252502985 Problem Hypothyroid E03.9 Active 00990512 Problem Insomnia G47.00 Active 687465181 Problem Vitamin D deficiency E55.9 Active 62753984 Problem Asthma J45.909 Active 964763085 Problem Chronic kidney disease, unspecified N18.9 Active 683389909 Problem Palpitations R00.2 Active 88286841 Problem Anemia in chronic kidney disease D63.1 Active 211629729003396 Problem Primary osteoarthritis of left knee M17.12 Active 862483512 Problem Bipolar disorder, current episode manic without psychotic features F31.10 Active 527276368 Problem Restless leg syndrome G25.81 Active 55871645 Problem Seasonal allergic rhinitis due to pollen J30.1 Active 05785121 Problem Functional diarrhea K59.1 Active 84500474 Problem Chronic kidney disease, stage 4 (severe) N18.4 Active 553764463 Problem Restless leg G25.81 Active 80684390 Problem Mood disorder F39 Active 11726077 Problem Degenerative tear of medial meniscus of left knee M23.204 Active 363230080 Problem Body mass index (BMI) of 40.0-44.9 in adult Z68.41 Active 607367183 Problem Stage 3 chronic kidney disease N18.3 Active 766121640 Problem Asthma with acute exacerbation in adult J45.901 Active 059309085 Problem Other seasonal allergic rhinitis J30.2 Active 968248066 Problem History of colon polyps Z86.010 Active 551352870 Problem History of anemia Z86.2 Active 569216976 Problem Fibromyalgia M79.7 Active 713100335 Problem Essential (primary) hypertension I10 Active 58723750 Problem Hypokalemia E87.6 Active 53161963 Problem Mixed stress and urge urinary incontinence N39.46 Active 414148072 ALLERGIES No Information ENCOUNTERS Encounter Location Date Diagnosis [place] [id number] [address]- [address]78 Oct, [place] [address] 85669- 6287 Oct, Fibromyalgia M79.7 [place] [address] 32865- 9522 Sep, Restless leg syndrome G25.81 and Restless leg G25.81 [place] [address] [place] [id number] [place] [address] 77379- 3320 Sep, [place] [address] 75583- 7061 Sep, Seasonal allergic rhinitis due to pollen J30.1 ; Screening for breast cancer Z12.31 ; Chest pain at rest R07.9 ; Restless leg syndrome G25.81 ; Essential (primary) hypertension I10 and Depressed F32.9 [place] [address] [place] [id number] [place] [address] 70113- 9378 August, Fibromyalgia M79.7 [place] [address] 70367- 3040 August, [place] [address] 29586- 3847 August, [place] [address] 07770- [address] August, Ab[address] chest [address] R93.8 [facility] [id number] [place] [address] 73407- 6953 August, Generalized anxiety disorder F41.1 and Major depressive disorder, recurrent episode with anxious distress F33.9 [facility] [address] [place] [id number] [place] [address] 02287- [address] August, [address] R93.8 [facility] [address] [place] [id number] [place] [address] 56981- 0623 Jul, [place] [address] [place] [id number] [place] [address] 28824- 6342 Jul, Chronic kidney disease, stage 4 (severe) N18.4 [place] [address] [place] [id number] [place] [address] 16000- 5724 Jul, [place] [address] [place] [id number] [place] [address] 35451- 8608 Jul, Restless leg G25.81 ; Mixed stress and urge urinary incontinence N39.46 and Fibromyalgia M79.7 [place] [address] [place] [id number] [place] [address] 47617- 7446 Jul, Chronic kidney disease, stage 4 (severe) N18.4 [place] [address] [place] [id number] [place] [address] 47785- 2769 Jun, Orthostatic hypotension I95.1 ; Chronic kidney disease, stage 4 (severe) N18.4 ; Chest wall discomfort R07.89 and Body mass index (BMI) of 40.0-44.9 in adult Z68.41 [place] [address] [place] [id number] [address] Jun, [place] [address] [place] [id number] [place] [address] 23889- 1541 Jun, Orthostatic hypotension I95.1 [place] [address] [place] [id number] [place] [address] 79432- 6007 Jun, [facility] [address] [place] [id number] [place] [address] 61856 -1146 Jun, Orthostatic hypotension I95.1 ; Dysuria R30.0 and Acute cystitis without hematuria N30.00 [facility] [address] [place] [id number] [place] [address] 07616- 5715 Jun, [facility] [address] [place] [id number] [place] [address] 39879- 3100 Jun, Chronic kidney disease, stage 4 (severe) N18.4 [facility] [address] [place] [id number] [place] [address] 18654- 8859 Jun, Fibromyalgia M79.7 [facility] [address] [place] [id number] [place] [address] 88396- 2742 Jun, [facility] [address] [place] [id number] [place] [address] 92716- 1908 Jun, [facility] [address] [place] [id number] [place] [address] 53100- [address] May, [address] R93.8 and Stage 3 chronic kidney disease N18.3 [facility] [address] [place] [id number] [place] [address] 72312- 0179 May, Chronic kidney disease, stage 4 (severe) N18.4 [facility] [address] [place] [id number] [place] [address] 11810- 2383 May, Chronic kidney disease, stage 4 (severe) N18.4 [facility] [address] [place] [id number] [place] [address] 20031- [address] May, [address] R93.8 [facility] [address] [place] [id number] [place] [address] 27911- 5676 May, [facility] [address] [place] [id number] [place] [address] 70658- 9127 May, [facility] [address] [place] [id number] [place] [address] 11727- 1329 May, Generalized anxiety disorder F41.1 and Major depressive disorder, recurrent episode with anxious distress F33.9 [place] [address] [place] [address] 91947- 4637 May, Mood disorder F39 [facility] [address] [place] [address] 97155- 6016 Apr, [facility] [address] [place] [id number] [place] [address] 42413- 8320 Apr, Infected skin lesion L08.9 and Muscle strain of right shoulder region, initial encounter S46.911A [place] [address] [place] [id number] [place] [address] 00617- 7175 Apr, Generalized anxiety disorder F41.1 and Major depressive disorder, recurrent episode with anxious distress F33.9 [place] [address] [place] [id number] [place] [address] 08413- 1146 Apr, [facility] [address] [place] [id number] [place] [address] 18345- 1032 Apr, Recent urinary tract infection Z87.440 and Hypothyroid E03.9 [place] [address] [place] [id number] [place] [address] 22214- 6244 Apr, Generalized anxiety disorder F41.1 and Major depressive disorder, recurrent episode with anxious distress F33.9 [place] [address] [place] [id number] [place] [address] 45144- 0769 Apr, Recent urinary tract infection Z87.440 [place] [address] [place] [address] 61642- 8488 Mar, [facility] [address] [place] [id number] [place] [address] 29030 -9881 Mar, Dysuria R30.0 ; Acute cystitis without hematuria N30.00 and BMI 40.0-44.9, adult Z68.41 [place] [address] [place] [id number] [place] [address] 90606- 5621 14 Mar, 2017 [facility] [address] [place] [address] 89984- 2990 Mar, [facility] [address] [place] [id number] [place] [address] 19986- 2387 Mar, Generalized anxiety disorder F41.1 and Major depressive disorder, recurrent episode with anxious distress F33.9 [facility] [address] [place] [id number] [place] [address] 40041- 2205 Feb, Conjunctivitis, bacterial H10.9 [place] [address] [place] [id number] [place] [address] 34192- 9489 Feb, [facility] [address] [place] [id number] [place] [address] 48055 -7680 Feb, Conjunctivitis, bacterial H10.9 [place] [address] [place] [id number] [place] [address] 60349- 0074 Feb, [facility] [address] [place] [id number] [place] [address] 36328 -1156 Feb, Dysuria R30.0 ; Acute cystitis N30.00 and BMI 40.0-44.9, adult Z68.41 [place] [address] [place] [id number] [place] [address] 10738- 8508 Feb, [place] [address] [place] [id number] [place] [address] 69746- 3906 Feb, Generalized anxiety disorder F41.1 and Major depressive disorder, recurrent episode with anxious distress F33.9 [place] [address] [place] [id number] [place] [address] 64552- 2537 Feb, Mood disorder F39 and BMI 40.0-44.9, adult Z68.41 [facility] [address] [place] [address] 81556- 3673 Jan, [facility] [address] [place] [id number] [place] [address] 40802- 9244 Jan, [place] [id number] [place] [address] 48983- 0558 Jan, Hypothyroid E03.9 [place] [address] [place] [id number] [place] [address] 35991- 0597 Jan, [place] [address] [place] [id number] [place] [address] 54150- 8018 Jan, Chronic kidney disease, unspecified N18.9 ; Hypokalemia E87.6 ; Essential (primary) hypertension I10 ; Fibromyalgia M79.7 ; Coronary artery disease involving ruby coronary artery of ruby heart, angina presence unspecified I25.10 ; Hypothyroid E03.9 and Encounter for immunization Z23 [place] [address] [place] [id number] [place] [address] 96731- 2645 Jan, Hypothyroid E03.9 [place] [address] [place] [id number] [place] [address] 48220- 8942 Jan, [place] [address] [place] [id number] [place] [address] 50008- 7030 Dec, Vitamin D deficiency E55.9 [place] [address] [place] [id number] [place] [address] 86480- 7742 Dec, Primary osteoarthritis of left knee M17.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 [place] [address] [place] [id number] [place] [address] 71893- 5456 19 Dec, 2016 Fibromyalgia M79.7 [place] [address] [place] [id number] [place] [address] 19402- 5071 18 Dec, 2016 Mood disorder F39 [place] [address] [place] [id number] [place] [address] 40511- 3375 13 Dec, 2016 [place] [address] [place] [id number] [place] [address] 22591- 2485 13 Dec, 2016 Generalized anxiety disorder F41.1 and Major depressive disorder, recurrent episode with anxious distress F33.9 [place] [address] [place] [address]- 2969 11 Dec, 2016 [facility] [id number] [place] [address] 66311- 6237 08 Dec, 2016 Streptococcal meningitis G00.2 [facility] [id number] [place] [address] 30723- 3505 07 Dec, 2016 Streptococcal meningitis G00.2 [facility] [id number] [place] [address] 63750- 5396 07 Dec, 2016 [facility] [id number] [place] [address] 85028- 7624 06 Dec, 2016 Streptococcal meningitis G00.2 [facility] [id number] [place] [address] 55473- 7082 Dec, 2016 [facility] [id number] [place] [address] 69520- 9276 Dec, 2016 Major depressive disorder, recurrent episode with anxious distress F33.9 [facility] [id number] [place] [address] 23117- 3780 Nov, Fever, unspecified fever cause R50.9 [facility] [id number] [place] [address] 60679- 2639 24 Nov, 2016 [facility] [id number] [place] [address] 49576- 5477 Nov, Hypothyroid E03.9 [facility] [id number] [place] [address] 82503- 6323 Nov, Generalized anxiety disorder F41.1 and Major depressive disorder, recurrent episode with anxious distress F33.9 [facility] [id number] [place] [address] 14460- 5436 Nov, [facility] [address] [id number] Oct, Dental examination Z01.20 [facility] [address] [place] [id number] [place] [address] 83892- 5203 Oct, Generalized anxiety disorder F41.1 and Major depressive disorder, recurrent episode with anxious distress F33.9 [place] [id number] [place] [address] 96615- 9350 Oct, Chronic kidney disease, stage 4 (severe) N18.4 [place] [address] [place] [id number] [place] [address] 54065- 1984 Oct, [place] [address] [place] [id number] [place] [address] 35849- 5759 Oct, Fibromyalgia M79.7 [place] [address] [place] [id number] [place] [address] 81611- 3901 Oct, [place] [address] [place] [id number] [place] [address] 30374- 3016 Oct, Generalized anxiety disorder F41.1 ; Major depressive disorder, recurrent episode with anxious distress F33.9 and Bipolar disorder, current episode manic without psychotic features F31.10 [place] [address] [address]- 0074 Sep, [place] [address] [place] [id number] [place] [address] 56317- 6173 Sep, [place] [address] [place] [address] 01925- 2129 Sep, Vitamin D deficiency E55.9 [place] [address], [place] [address]- 7723 Sep, Vitamin D deficiency E55.9 [place] [address] [place] [address] 74070- 2547 Sep, [place] [address] [place] [id number] [place] [address] 25360- 0985 Sep, Chronic kidney disease, stage 4 (severe) N18.4 ; Hypothyroid E03.9 ; Restless leg G25.81 ; Fibromyalgia M79.7 ; Essential ( primary) hypertension I10 ; Vitamin D deficiency E55.9 ; Dyspepsia R10.13 ; Anemia in chronic kidney disease D63.1 ; Chronic kidney disease, unspecified N18.9 ; Coronary artery disease involving ruby coronary artery of ruby heart , angina presence unspecified I25.10 ; Screening breast examination Z12.39 and Low back pain M54.5 [place] [address] [place] [id number] [place] [address] 38740- 2192 August, Generalized anxiety disorder F41.1 and Major depressive disorder, recurrent episode with anxious distress F33.9 [place] [address] [place] [id number] [place] [address] 61269- 4263 August, Generalized anxiety disorder F41.1 and Major depressive disorder, recurrent episode with anxious distress F33.9 [place] [address] [place] [id number] [place] [address] 38870- 8123 August, Fibromyalgia M79.7 [place] [address] 76969- 8929 Jul, Generalized anxiety disorder F41.1 and Major depressive disorder, recurrent episode with anxious distress F33.9 [place] [address] [place] [id number] [place] [address] 56231- 4213 Jul, Fibromyalgia M79.7 [place] [address] [place] [id number] [place] [address] 09676- 9638 Jul, Generalized anxiety disorder F41.1 [place] [address] [place] [id number] [place] [address] 17409- 4954 May, [place] [address] [place] [id number] [place] [address] 34041- 4372 May, Hypothyroid E03.9 [place] [address] [place] [id number] [place] [address] 62542- 3844 May, Chronic kidney disease, stage 4 (severe) N18.4 ; Hypothyroid E03.9 ; Restless leg G25.81 ; Fibromyalgia M79.7 ; Essential ( primary) hypertension I10 ; Vitamin D deficiency E55.9 ; Dyspepsia R10.13 ; Acute non-recurrent maxillary sinusitis J01.00 ; Anemia in chronic kidney disease D63.1 ; Chronic kidney disease, unspecified N18.9 and Coronary artery disease involving ruby coronary artery of ruby heart, angina presence unspecified I25.10 [facility] [address] [place] [id number] [place] [address] 64073- 6672 May, Vitamin D deficiency, unspecified E55.9 [place] [address] [place] [id number] [place] [address] 89818- 1833 May, Generalized anxiety disorder F41.1 and Major depressive disorder, recurrent episode with anxious distress F33.9 [place] [address] [place] [id number] [place] [address] 12334- 6669 Apr, Pain in right knee M25.561 and Pain in left knee M25.562 [place] [address] [place] [id number] [place] [address] 12994- 8124 Apr, [place] [address] [place] [id number] [place] [address] 15673- 1355 Apr, [facility] [address] [place] [address] 93169- 8513 Apr, [place] [address] [place] [id number] [place] [address] 51816- 5224 Mar, Generalized anxiety disorder F41.1 and Major depressive disorder, recurrent episode with anxious distress F33.9 [place] [address] [place] [address] 74914- 6964 Mar, Generalized anxiety disorder F41.1 and Major depressive disorder, recurrent episode with anxious distress F33.9 [place] [address] [place] [id number] [place] [address] 38107- 2041 Mar, [facility] [address] [place] [id number] [place] [address] 88546- 9965 Mar, [place] [address] [place] [id number] [place] [address] 70061- 6826 Mar, [place] [address] [place] [id number] [place] [address] 46426- 1872 Mar, Asthma J45.909 and Fibromyalgia M79.7 [place] [address] [place] [id number] [place] [address] 59000 2546 Mar, Chronic kidney disease, stage 4 (severe) N18.4 ; Vitamin D deficiency E55.9 and Essential (primary) hypertension I10 [place] [address] 41905- 7675 Feb, [place] [address] 83645- 0703 Feb, Dysuria R30.0 ; Mixed stress and urge urinary incontinence N39.46 ; Fibromyalgia M79.7 and Chronic kidney disease, stage IV (severe) N18.4 [place] [address] 52346- 9366 Feb, Chronic kidney disease, stage 4 (severe) N18.4 [place] [address] 12710- 6365 Feb, Chronic kidney disease, stage 4 (severe) N18.4 [place] [address] [place] [id number] [place] [address] 83315- 5846 Feb, [place] [address] [place] [id number] [place] [address] 64864- 9807 Feb, Vitamin D deficiency, unspecified E55.9 [place] [address] [place] [id number] [place] [address] 88249 2546 Jan, [place] [address] 34863 2546 Jan, [place] [address] [place] [id number] [place] [address] 82270 2546 Dec, [place] [address] [place] [id number] [place] [address] 84440 2544 Dec, Chronic kidney disease, stage 4 (severe) N18.4 [facility] [address] [place] [id number] [place] [address] 61723- 1437 28 Dec, 2015 Dysthymic disorder F34.1 and Generalized anxiety disorder F41.1 [facility] [address] [place] [id number] [place] [address] 59006- 4479 Dec, [facility] [address] [place] [id number] [place] [address] 25873- 1578 Dec, [facility] [address] [place] [id number] [place] [address] 61160- 2903 Dec, Dysthymic disorder F34.1 and Generalized anxiety disorder F41.1 [place] [address] [place] [id number] [place] [address] 22317- 1529 Dec, Dysuria R30.0 ; Chronic kidney disease, stage 4 (severe) N18.4 ; Hypertension I10 ; Dyspepsia R10.13 ; Yeast dermatitis B37.2 ; Palpitations R00.2 ; Hypothyroid E03.9 ; Functional diarrhea K59.1 and Other seasonal allergic rhinitis J30.2 [facility] [address] [place] [id number] [place] [address] 86171 -9250 Dec, [facility] [address] [place] [id number] [place] [address] 32700 -5411 Nov, Dysuria R30.0 and Stress incontinence N39.3 [facility] [address] [place] [id number] [place] [address] 08539- 9837 Nov, [facility] [address] [place] [id number] [place] [address] 33078- 5550 Nov, [facility] [address] [place] [id number] [place] [address] 76467- 2397 Nov, Osteoarthritis of knees, bilateral M17.0 [facility] [address] [place] [id number] [place] [address] 90561- 3249 Nov, Dysthymic disorder F34.1 and Generalized anxiety disorder F41.1 [facility] [address], [place] [address]- 3748 Nov, [facility] [address] [place] [id number] [place] [address] 34046- 2900 Nov, [facility] [address] [place] [id number] [place] [address] 45576- 7497 Nov, Urgency of urination R39.15 [facility] [address] [place] [id number] [place] [address] 49856- 2006 Nov, [facility] [address] [place] [id number] [place] [address] 62382- 6097 Nov, Chronic kidney disease, stage 4 (severe) N18.4 [facility] [address] [place] [id number] [place] [address] 72166- 2929 Oct, Hypertension I10 ; Coronary artery disease involving ruby coronary artery of ruby heart, angina presence unspecified I25.10 ; Palpitations R00.2 ; Hypothyroid E03.9 ; Right foot pain M79.671 ; Functional diarrhea K59.1 and Other seasonal allergic rhinitis J30.2 [facility] [address] [place] [id number] [place] [address] 93164- 4346 Oct, Dysthymic disorder F34.1 and Generalized anxiety disorder F41.1 [facility] [id number] [place] [address] 01617- 9301 Sep, [facility] [id number] [place] [address] 63573- 6969 Sep, [facility] [address] [place] [id number] [place] [address] 13753- 6936 Sep, [facility] [address] [place] [id number] [place] [phone] Sep, [facility] [id number] [place] [phone] Sep, [facility] [address] [place] [address] 27 Sep, 2015 Dysthymic disorder F34.1 and Generalized anxiety disorder F41.1 [place] [address] [address] 16 Sep, 2015 Asthma with acute exacerbation in adult J45.901 ; Dysuria R30.0 ; Chronic kidney disease, stage 4 (severe) N18.4 and History of anemia Z86.2 [place] [address] [address] 2015 Generalized anxiety disorder F41.1 and Dysthymic disorder F34.[address] [address] August, Screening breast examination Z12.39 and Acute recurrent maxillary sinusitis J01.[address] [address] August, Osteoarthritis of knees, bilateral M17.[address] [address] August, Chronic kidney disease, stage 4 (severe) N18.4 ; Acute non- recurrent maxillary sinusitis J01.00 ; Urinary problem R39.89 ; Bowel habit changes R19.4 ; Functional diarrhea K59.1 and History of colon polyps Z86.010 [place] [id number] [address] [place] [address] 83284- 5607 Jul, Dysthymic disorder F34.1 and Generalized anxiety disorder F41.1 [place] [id number] [place] [address] 09004- 3371 Jul, [address] 90449- 8625 Jul, Dysthymic disorder F34.1 ; Generalized anxiety disorder F41.1 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.[address] 52129- 6037 Jul, [facility] [id number] [place] [address] 31730- 3521 Jun, [facility] [id number] [place] [address] 49050- 6395 Jun, [facility] [id number] [place] [address] 60010- 9937 May, [facility] [id number] [place] [address] 92520- 1307 May, Dysthymic disorder F34.1 and Generalized anxiety disorder F41.1 [place] [id number] [place] [address] 71780- 3338 Apr, Kidney disease N28.9 [place] [id number] [place] [address] 24377- 0627 Apr, Generalized anxiety disorder F41.1 and Dysthymic disorder F34.1 [place] [id number] [place] [address] 23714- 3911 Apr, Chronic kidney disease, stage 4 (severe) N18.4 [place] [id number] [place] [address] 98480- 0566 Apr, Generalized anxiety disorder F41.1 ; Major depression, recurrent F33.9 and Sleep disturbance G47.9 [place] [id number] [place] [address] 98137- 2943 Mar, Generalized anxiety disorder F41.1 and Dysthymic disorder F34.1 [place] [id number] [place] [address] 54414- 9968 Mar, Generalized anxiety disorder F41.1 ; Dysthymic disorder F34.1 and Insomnia G47.00 [place] [id number] [place] [address] 72075- 6309 Mar, [place] [id number] [place] [address] 67293- 6741 Mar, [facility] [id number] [place] [address] 56851- 7575 Mar, Osteoarthritis of knees, bilateral M17.0 [place] [id number] [place] [address] 32912- 8539 Mar, Hypertension I10 ; Hypothyroid E03.9 ; Dysthymic disorder F34.1 ; Chronic kidney disease, stage 4 (severe) N18.4 and Nausea & vomiting R11.2 [place] [id number] [place] [address] 17373- 9386 Mar, Generalized anxiety disorder F41.1 ; Dysthymic disorder F34.1 and Insomnia G47.00 [place] [id number] [place] [address] 51070- 0388 Mar, Dehydration E86.0 ; Chronic kidney disease, stage 4 (severe ) N18.4 and Nausea & vomiting R11.2 [facility] [id number] [place] [address] 34606 -3306 Mar, Gastroenteritis K52.9 [place] [address] 77344- 9037 Mar, [place] [id number] [place] [address] 94470- 9226 Mar, [place] [id number] [place] [address] 51019- 6339 Feb, Dysthymic disorder F34.1 and Generalized anxiety disorder F41.1 [place] [id number] [place] [address] 56692- 0571 Jan, UTI (urinary tract infection) N39.0 ; Asthma J45.909 ; Coronary artery disease involving ruby coronary artery of ruby heart, angina presence unspecified I25.10 ; Hypertension I10 ; Hypothyroid E03.9 ; Vitamin D deficiency E55.9 ; Insomnia G47.00 ; Palpitations R00.2 ; Depressed F32.9 ; Restless leg G25.81 and Anxiety F41.9 [place] [id number] [place] [address] 50045- 4574 19 Jan, 2015 Dysthymic disorder F34.1 and Generalized anxiety disorder F41.1 [place] [id number] [place] [address] 38786- 3648 Jan, [place] [id number] [place] [address] 59800- 7169 Dec, [place] [id number] [place] [address] 80506- 0755 28 Dec, 2014 Alkalosis 276.3 ; Chronic kidney disease, 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.4 ; Hyperpotassemia 276.7 ; Secondary hyperparathyroidism, renal 588.81 ; Proteinuria 791.0 ; Unspecified vitamin D deficiency 268.9 ; Anemia in chronic kidney disease 285.21 ; Other and unspecified hyperlipidemia 272.4 ; Hypertension, essential, benign 401.1 and Chronic kidney disease (CKD), stage III (moderate) 585.3 [place] [id number] [place] [address] 26248- 6372 Dec, [place] [id number] [place] [address] 81399- 0877 16 Dec, 2014 Depressive disorder, not elsewhere classified 311 and Generalized anxiety disorder 300.02 [place] [id number] [place] [address] 49480- 5598 10 Dec, 2014 [place] [id number] [place] [address] 65697- 6282 08 Dec, 2014 [place] [id number] [place] [address] 05588- 3146 Nov, Depressive disorder, not elsewhere classified 311 and Generalized anxiety disorder 300.02 [place] [id number] [place] [address] 24444- 4512 Nov, Arthritis of both knees 716.96 [place] [id number] [place] [address] 67445- 0689 Nov, PAF (paroxysmal atrial fibrillation) 427.31 ; CAD (coronary artery disease) 414.00 ; Chest pain 786.50 and Chronic kidney disease (CKD) stage G4/A1, severely decreased glomerular filtration rate (GFR) between 15-29 mL/min/1.73 square meter and albuminuria creatinine ratio less than 30 mg/g 585.4 [place] [id number] [place] [address] 58349- 4470 Oct, Coronary atherosclerosis of unspecified type of vessel, ruby or graft 414.00 ; Chronic kidney disease, 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.4 ; Hypertension 401.9 and Edema 782.[address] 69422- 2363 Oct, Depressive disorder, not elsewhere classified 311 and Generalized anxiety disorder 300.[address] 69411- 7903 Oct, Depressive disorder, not elsewhere classified 311 and Generalized anxiety disorder 300.02 [place] [address] 06933- 9911 Oct, [address] 98504- 4235 Oct, [place] [id number] [place] [address] 07905- 1400 Sep, [place] [id number] [place] [address] 89029- 5088 Sep, Chronic kidney disease, 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.4 [place] [id number] [place] [address] 70514- 2243 Sep, [address] 14777- 9267 Sep, Coronary atherosclerosis of unspecified type of vessel, ruby or graft 414.00 ; Hypertension 401.9 ; Edema 782.3 and Hypothyroidism 244.[address] 13034- 7400 Sep, Coronary atherosclerosis of unspecified type of vessel, ruby or graft 414.00 ; Hypertension 401.9 ; Fibromyalgia 729.1 ; Edema 782.3 ; Hypothyroidism 244.9 and Anemia 285.9 [facility] [id number] [place] [address] 54786- 2246 Sep, Anxiety disorder, unspecified 300.00 and Depressive disorder , not elsewhere classified 311 [facility] [address] 17530- 5419 Sep, [facility] [address] 50215- 5268 August, Generalized anxiety disorder 300.02 [facility] [address] 34753- 8336 August, Closed fracture of lateral malleolus 824.2 [facility] [address] 84735- 2490 Jul, [facility] [address] 48086- 9405 Jul, [facility] [id number] [place] [address] 83504- 9899 Jun, [facility] [id number] [place] [address] 66804- 9450 Jun, [facility] [id number] [place] [address] 16634- 6137 Jun, [facility] [id number] [place] [address] 38572- 6717 Jun, [facility] [address] 80881- 0280 Jun, [facility] [id number] [place] [address] 07948- 8264 Jun, [facility] [id number] [place] [address] 04893- 1293 May, [facility] [place] [facility] [address] [id number] [place] [address]- 9742 19 May, 2014 [facility] [place] [facility] [address] [id number] [place] [address]- 1506 18 May, 2014 [facility] [place] [facility] [address] [id number] [place] [address] 2546 18 May, 2014 [facility] [place] [facility] [address] [id number] [place] [address]- 7296 16 May, 2014 [facility] [place] [facility] [address] [id number] [place] [address]- 7251 16 May, 2014 [facility] [place] [facility] [address] [id number] [place] [address]- 0376 13 May, 2014 [facility] [place] [facility] [address] [id number] [place] [address]- 8251 13 May, 2014 [facility] [place] [facility] [address] [id number] [place] [address]- 3538 10 May, 2014 [facility] [place] [facility] [address] [id number] [place] [address]- 2741 10 May, 2014 [facility] [place] [facility] [address] [facility] [id number] [place] [address]- 7360 Apr, [facility] [place] [facility] [address] [id number] [place] [address]- 9357 Apr, [facility] [place] [facility] [address] [id number] [place] [address]- 0838 Mar, [facility] [place] [facility] [address] [id number] [place] [address] 2546 Mar, [facility] [place] [facility] [address] [id number] [place] [address]- 2546 Mar, [facility] [place] [facility] [address] [id number] [place] [address]- 2549 Mar, [facility] [place] [facility] [address] [id number] [place] [address]- 6236 15 Mar, 2014 [facility] [place] [facility] [address] [id number] [place] [address]- 6621 15 Mar, 2014 [facility] [place] [facility] [address] [id number] [place] [address]- 4937 Mar, [facility] [place] [facility] [address] [id number] [place] [address]- 7104 Feb, [facility] [place] [facility] [address] [id number] [place] [address]- 2378 Feb, [facility] [place] [facility] [address] [id number] [place] [address]- 1929 Feb, [facility] [place] [facility] [address] [id number] [place] [address]- 8090 Jan, [facility] [place] [facility] [address] [id number] [place] [address]- 6005 Jan, [facility] [place] [facility] [address] [id number] [place] [address]- 9802 Jan, [facility] [place] [facility] [address] [id number] [place] [address]- 0475 Jan, [facility] [place] [facility] [address] [id number] [place] [address]- 1552 Jan, [facility] [place] [facility] [address] [id number] [place] [address]- 5559 Jan, [facility] [place] [facility] [address] [id number], [place] [address]- 0773 Jan, [facility] [place] [facility] [address] [id number], [place] [address]- 5584 Jan, [facility] [place] [facility] [address] [id number], [place] [address]- 8633 Jan, [facility] [place] [facility] [address] [id number], [place] [address]- 2656 Jan, [facility] [place] [facility] [address] [id number] [place] [address]- 6149 Nov, [facility] [place] [facility] [address] [id number] [place] [address]- 5032 Nov, [facility] [place] [facility] [address] [id number] [place] [address]- 1786 Nov, [facility] [place] [facility] [address] [id number] [place] [address]- 1039 Oct, [facility] [place] [facility] [address] [id number] [place] [address]- 6396 Oct, [facility] [place] [facility] [address] [id number] [place] [address]- 3137 Oct, [facility] [place] [facility] [address] [id number] [place] [address]- 4372 Oct, [facility] [place] [facility] [address] [id number] [place] [address]- 8934 Oct, [facility] [place] [facility] [address] [id number] [place] [address]- 7949 Oct, [facility] [place] [facility] [address] [id number] [place] [address]- 2132 Oct, [facility] [place] [facility] [address] [id number] [place] [address]- 1835 Oct, [facility] [place] [facility] [address] [id number] [place] [address]- 2331 Oct, [facility] [place] [facility] [address] [id number] [place] [address]- 4811 Sep, [facility] [place] [facility] [address] [id number] [place] [address]- 8483 Sep, [facility] [place] [facility] [address] [id number] [place] [address]- 5623 Sep, [facility] [place] [facility] [address] [id number] [place] [address]- 7814 Sep, [facility] [place] [facility] [address] [id number] [place] [address]- 6639 Sep, [facility] [place] [facility] [address] [id number] [place] [address]- 9715 Sep, [facility] [place] [facility] [address] [id number] [place] [address]- 6983 Sep, [facility] [place] [facility] [address] [id number] [place] [address]- 2593 Sep, [facility] [place] [facility] [address] [id number] [place] [address]- 0781 Sep, [facility] [place] [facility] [address] [id number] [place] [address]- 3119 August, [facility] [place] [facility] [address] [id number] [place] [address]- 6011 August, [facility] [place] [facility] [address] [id number] [place] [address]- 0632 August, [facility] [place] [facility] [address] [id number] [place] [address]- 7127 August, [facility] [place] [facility] [address] [id number] [place] [address]- 5936 August, [facility] [place] [facility] [address] [id number], [place] [address]- 1449 August, [facility] [place] [facility] [address] [id number], [place] [address]- 6901 Jul, [facility] [place] [facility] [address] [id number] [place] [address]- 8271 Jul, [facility] [place] [facility] [address] [id number] [place] [address]- 9189 Jul, [facility] [place] [facility] [address] [id number] [place] [address]- 6922 Jul, [facility] [place] [facility] [address] [id number] [place] [address]- 6376 07 Jul, 2013 [facility] [place] [facility] [address] [id number] [place] [address]- 8306 Jul, [facility] [place] [facility] [address] [id number] [place] [address]- 5156 Jun, [facility] [place] [facility] [address] [id number] [place] [address]- 9874 Jun, [facility] [place] [facility] [address] [id number] [place] [address]- 4002 May, [facility] [place] [facility] [address] [id number] [place] [address]- 6816 May, [facility] [place] [facility] [address] [id number] [place] [address]- 2336 May, [facility] [place] [facility] [address] [facility] [id number] [place] [address]- 6763 May, [facility] [place] [facility] [address] [id number] [place] [address]- 1472 Apr, [facility] [place] [facility] [address] [id number] [place] [address]- 7148 Apr, [facility] [place] [facility] [address] [facility] [id number] [place] [address]- 0715 Mar, [facility] [place] [facility] [address] [id number] [place] [address]- 2327 18 Mar, 2013 [facility] [place] [facility] [address] [id number] [place] [address] 2541 17 Mar, 2013 [facility] [place] [facility] [address] [id number] [place] [address]- 7546 Mar, [facility] [place] [facility] [address] [facility] [id number] [place] [address]- 0396 05 Mar, 2013 [facility] [place] [facility] [address] [facility] [id number] [place] [address]- 4729 Mar, [facility] [place] [facility] [address] [id number] [place] [address]- 0973 Feb, [facility] [place] [facility] [address] [id number] [place] [address]- 4411 Feb, [facility] [place] [facility] [address] [id number] [place] [address]- 7562 Feb, [facility] [place] [facility] [address] [id number] [place] [address]- 6356 Feb, [facility] [place] [facility] [address] [id number] [place] [address]- 8770 Feb, [facility] [place] [facility] [address] [id number] [place] [address]- 1213 Feb, [facility] [place] [facility] [address] [id number] [place] [address]- 5261 Jan, [facility] [place] [facility] [address] [id number] [place] [address]- 5660 Jan, [facility] [place] [facility] [address] [id number] [place] [address]- 8366 Jan, [facility] [place] [facility] [address] [id number] [place] [address]- 0999 Jan, [facility] [place] [facility] [address] [id number] [place] [address]- 3776 Jan, [facility] [place] [facility] [address] [id number], [place] [address]- 5906 Jan, [facility] [place] [facility] [address] [id number] [place] [address]- 3813 12 Dec, 2012 [facility] [place] [facility] [address] [id number] [place] [address]- 9191 09 Dec, 2012 [facility] [place] [facility] [address] [id number] [place] [address]- 3738 16 Nov, 2012 [facility] [place] [facility] [address] [id number] [place] [address]- 5741 Nov, [facility] [address] [id number] [place] [address]- 3599 Oct, [facility] [place] [facility] [address] [id number] [place] [address]- 5026 Oct, [facility] [address] [id number] [place] [address]- 3655 Oct, [facility] [address] [id number] [place] [address]- 0619 Oct, [facility] [address] [id number] [place] [address]- 9499 Oct, [facility] [address] [id number] [place] [address]- 0050 Oct, [facility] [address] [id number] [place] [address]- 2653 Sep, [facility] [address] [id number] [place] [address]- 0817 Sep, [facility] [address] [id number] [place] [address]- 1613 Sep, [facility] [address] [id number] [place] [address]- 7525 Sep, [facility] [address] [id number] [place] [address]- 5536 August, [facility] [place] [facility] [address] [id number] [place] [address]- 3483 August, [facility] [place] [facility] [address] [id number] [place] [address]- 2442 August, [facility] [place] [facility] [address] [id number] [place] [address]- 0644 August, [facility] [place] [facility] [address] [id number] [place] [address]- 6805 August, [facility] [address] [id number] [place] [address]- 1159 Jul, [facility] [address] [id number] [place] [address]- 4888 Jul, [facility] [address] [id number] [place] [address]- 1119 Jul, [facility] [address] [id number] [place] [address]- 6746 Jul, [facility] [address] [id number] [place] [address]- 3330 Jul, [facility] [address] [id number] [place] [address]- 2959 Jul, [facility] [address] [id number] [place] 5352 Jul, [facility] [address] [id number] [place] [address]- 8589 Jul, [facility] [address] [id number] [place] [address]- 6875 Jul, [facility] [address] [id number] [place] [address]- 6260 Jul, [facility] [address] [id number] [id number] Jun, [facility] [address] [id number] [place] [address]- 2190 Jun, [facility] [address] [id number] [place] [address]- 9298 Jun, [facility] [place] [facility] [address] [id number] [place] [address]- 0004 Jun, [facility] [place] [facility] [address] [id number] [place] [address]- 2426 Jun, [facility] [address] [id number] [place] [address]- 2044 May, [facility] [address] [id number] [place] [address]- 4075 May, [facility] [place] [facility] [address] [id number] [place] [address]- 9753 May, [facility] [address] [id number] [place] [address]- 7322 Apr, [facility] [place] [facility] [address] [id number] [place] [address]- 5445 Apr, [facility] [address] [id number] [place] [address] Apr, [facility] [place] [facility] [address] [id number] [place] [address] Apr, [facility] [address] [facility] [id number] [place] [address] Apr, [facility] [address] [id number] [place] [address] Apr, [facility] [address] [id number] [place] [address] Mar, [facility] [place] [facility] [address] [id number] [place] [address] Mar, [facility] [place] [facility] [address] [id number], [place] [address] Mar, [facility] [place] [facility] [address] [id number], [place] [address] Mar, [facility] [place] [facility] [address] [id number] [place] [address] Feb, [facility] [place] [facility] [address] [id number] [place] [address] Feb, [facility] [place] [facility] [address] [facility] [id number] [place] [address] Feb, [facility] [place] [facility] [address] [id number] [place] [address] Feb, [facility] [place] [facility] [address] [id number] [place] [address] Feb, [facility] [place] [facility] [address] [id number] [place] [address]- [address] Feb, [facility] [place] [facility] [address] [id number] [place] [address] Feb, [facility] [place] [facility] [address] [id number] [place] [address] Feb, [facility] [place] [facility] [address] [id number] [place] [address] Feb, [facility] [place] [facility] [address] [id number] [place] [address] Feb, [facility] [place] [facility] [address] [id number] [place] [address] Feb, [facility] [place] [facility] [address] [id number] [place] [address] Feb, [facility] [place] [facility] [address] [id number] [place] [address] Feb, [facility] [place] [facility] [address] [facility] [id number] [place] [address] Feb, [facility] [place] [facility] [address] [id number] [place] [address] Feb, [facility] [place] [facility] [address] [id number], [place] [address] Feb, [facility] [place] [facility] [address] [id number] [place] [address] Jan, [facility] [place] [facility] [address] [id number] [place] [address] Jan, [facility] [place] [facility] [address] [id number], [place] [address] Jan, [facility] [place] [facility] [address] [id number] [place] [address] 31 Jan, 2012 [facility] [place] [facility] [address] [id number] [place] [address]- [address] 30 Jan, 2012 [facility] [place] [facility] [address] [id number] [place] [address] Jan, [facility] [place] [facility] [address] [id number] [place] [address] 25 Jan, 2012 [facility] [place] [facility] [address] [id number] [place] [address]- [address] 16 Jan, 2012 [facility] [place] [facility] [address] [id number] [place] [address] 16 Jan, 2012 [facility] [place] [facility] [address] [id number] [place] [address] 15 Jan, 2012 [facility] [place] [facility] [address] [id number] [place] [address] 15 Jan, 2012 [facility] [place] [facility] [address] [id number] [place] [address] Jan, [facility] [place] [facility] [address] [id number] [place] [address] 26 Dec, 2011 [facility] [place] [facility] [address] [id number] [place] [address]- [address] 26 Sep2011 [facility] [place] [facility] [address] [id number] [place] [address]- 7204 24 Sep2011 [facility] [place] [facility] [address] [id number] [place] [address] 399[address] 23 Sep2011 [facility] [place] [facility] [address] [id number] [place] [address]- 2544 22 Sep2011 [facility] [place] [facility] [address] [id number] [place] [address] 21 Sep2011 [facility] [place] [facility] [address] [id number] [place] [address] 85[address] 20 Dec, 2011 [facility] [place] [facility] [address] [id number] [place] [address] 20 Dec, 2011 [facility] [place] [facility] [address] [id number] [place] [address]- [address] 07 Dec, 2011 [facility] [place] [facility] [address] [id number] [place] [address]- [address] 06 Dec, 2011 [facility] [place] [facility] [address] [id number] [place] [address]- 224[address] 06 Dec, 2011 [facility] [place] [facility] [address] [id number] [place] [address]- [address] 05 Dec, 2011 [facility] [place] [facility] [address] [id number] [place] [address]- [address] 23 Nov, 2011 [facility] [place] [facility] [address] [id number] [place] [address]- [address] 17 Nov, 2011 [facility] [place] [facility] [address] [id number] [place] [address] 13 Nov, 2011 [facility] [place] [facility] [address] [id number] [place] [address] Nov, [facility] [place] [facility] [address] [id number] [place] [address] Nov, [facility] [place] [facility] [address] [id number] [place] [address] Nov, [facility] [place] [facility] [address] [id number] [place] [address] Nov, [facility] [place] [facility] [address] [id number] [place] [address] Nov, [facility] [place] [facility] [address] [id number] [place] [address] Oct, [facility] [place] [facility] [address] [id number] [place] [address] Oct, [facility] [place] [facility] [address] [id number] [place] [address] Oct, [facility] [address] [id number] [place] [address] Oct, [facility] [address] [id number] [place] [address] Oct, [facility] [address] [id number] [place] [address] Oct, [facility] [address] [id number] [place] [address] Oct, [facility] [address] [id number] [place] [address] Sep, [facility] [address] [id number] [place] [address] Sep, [facility] [address] [id number] [place] [address] August, [facility] [address] [id number] [place] [address] August, [facility] [address] [id number] [place] [address] August, [facility] [address] [id number] [place] [address] August, [facility] [address] [id number] [place] [address] Jul, [facility] [address] [id number] [place] [address] Jul, [facility] [place] [facility] [address] [id number] [place] [address] Jul, [facility] [place] [facility] [address] [id number] [place] [address] Jul, [facility] [address] [id number] [place] [address] Jul, [facility] [address] [id number] [place] [address] Jul, [facility] [place] [facility] [address] [id number] [place] [address]6 Jul, [facility] [place] [facility] [address] [id number] [place] [address] Jul, [facility] [place] [facility] [address] [id number] [place] [address] Jul, [facility] [place] [facility] [address] [id number] [place] [address] Jun, [facility] [place] [facility] [address] [id number] [place] [address] Jun, [facility] [place] [facility] [address] [id number] [place] [address] 15 Jun, 2011 [facility] [place] [facility] [address] [id number] [place] [address]- [address] 14 Jun, 2011 [facility] [place] [facility] [address] [id number] [place] [address] Jun, [facility] [place] [facility] [address] [id number] [place] [address] Jun, [facility] [place] [facility] [address] [id number] [place] [address] Jun, [facility] [place] [facility] [address] [id number], [place] [address] May, [facility] [place] [facility] [address] [id number] [place] [address] 24 May, 2011 [facility] [place] [facility] [address] [id number] [place] [address] 94[address] May, [facility] [place] [facility] [address] [id number] [place] [address] May, [facility] [place] [facility] [address] [id number] [place] [address] 03 May, 2011 [facility] [address] [id number] [place] [address] Apr, [facility] [place] [facility] [address] [id number] [place] [address] Apr, [facility] [address] [id number] [place] [address] Apr, [facility] [place] [facility] [address] [id number] [place] [address] Apr, [facility] [address] [id number] [place] [address] Apr, [facility] [place] [facility] [address] [id number] [place] [address] Mar, [facility] [address] [id number] [place] [address] Mar, [facility] [place] [facility] [address] [id number] [place] [address] Mar, [facility] [place] [facility] [address] [id number] [place] [address] Mar, [facility] [place] [facility] [address] [facility] [id number] [place] [address] Mar, [facility] [place] [facility] [address] [id number] [place] [address] Mar, [facility] [place] [facility] [address] [id number] [place] [address] Mar, [facility] [place] [facility] [address] [id number] [place] [address] Feb, [facility] [place] [facility] [address] [id number] [place] [address] Feb, [facility] [place] [facility] [address] [id number] [place] [address]- [address] Feb, [facility] [place] [facility] [address] [id number] [place] [address] Feb, [facility] [place] [facility] [address] [id number] [place] [address] Jan, [facility] [place] [facility] [address] [id number] [place] [address]- [address] Jan, [facility] [place] [facility] [address] [id number] [place] [address]- 2096 Jan, [facility] [place] [facility] [address] [id number] [place] [address] Jan, [facility] [place] [facility] [address] [id number] [place] [address]- [address] Nov, [facility] [place] [facility] [address] [id number] [place] [address]- [address] Mar, [facility] [place] [facility] [address] [id number] [place] [address]- [address]64 Mar, [facility] [place] [facility] [address] [id number] [place] [address] Mar, [facility] [place] [facility] [address] [id number] [place] [address] Mar, [facility] [place] [facility] [address] [id number] [place] [address]- [address] Mar, [facility] [place] [facility] [address] [id number] [place] [address]- [address] Mar, [facility] [place] [facility] [address] [id number] [place] [address] 1401 Feb, [facility] [place] [facility] [address] [id number] [place] [address]- 1089 Feb, [facility] [place] [facility] [address] [id number] [place] [address] 0[address] Jan, [facility] [place] [facility] [address] [id number] [place] [address] Jan, [facility] [address] [facility] [id number] [place] [address] Jan, IMMUNIZATIONS No Known Immunizations SOCIAL HISTORY Never Assessed REASON FOR VISIT Future chest ct PLAN OF CARE VITAL SIGNS MEDICATIONS Unknown Medications RESULTS Name Result Date Reference Range CT Scan : Chest w/ Contrast PROCEDURES No Known procedures INSTRUCTIONS MEDICATIONS ADMINISTERED [...] Surgical History Bladder surgery [facility] 03/2016 Hospitalization History Surgeries Only Hospitalization History 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
[2018-05-29 08:16] LABS: BACTERIA,URINE MODERATE /HPF; WBC,URINE >100 /HPF
--- OUTSIDE RECORDS SUMMARY | 2018-05-29 08:16 | XMS REPORT ---
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 Name Role Phone ISABEL MAE Unavailable PROBLEMS Type Condition ICD9-CM Code WDZ38-VC Code Onset Dates Condition Status SNOMED Code Problem Long-term use of high-risk medication Z79.899 Active 014742614 Problem Abnormal chest CT R93.8 Active 265437538 Problem Low back pain M54.5 Active 460782333 Problem Generalized anxiety disorder F41.1 Active 12813801 Problem Dysthymic disorder F34.1 Active 67373508 Problem Coronary artery disease involving creek coronary artery of creek heart, angina presence unspecified I25.10 Active 7314520516406 Problem Depressed F32.9 Active 00929530 Problem Fibromyalgia M79.7 Active 679957539 Problem Hypothyroid E03.9 Active 47293577 Problem Essential (primary) hypertension I10 Active 76049698 Problem Insomnia G47.00 Active 704641256 Problem Vitamin D deficiency E55.9 Active 73412086 Problem Anemia in chronic kidney disease D63.1 Active 336297552139826 Problem Chronic kidney disease, unspecified N18.9 Active 922873765 Problem Body mass index (BMI) of 40.0-44.9 in adult Z68.41 Active 588110936 Problem Stage 3 chronic kidney disease N18.3 Active 431467010 Problem Restless leg G25.81 Active 03178598 Problem Palpitations R00.2 Active 56254810 Problem Asthma J45.909 Active 366453129 Problem Primary osteoarthritis of left knee M17.12 Active 131273686 Problem Bipolar disorder, current episode manic without psychotic features F31.10 Active 295976575 Problem Mood disorder F39 Active 10714522 Problem Degenerative tear of medial meniscus of left knee M23.204 Active 369580414 Problem History of colon polyps Z86.010 Active 197686468 Problem Asthma with acute exacerbation in adult J45.901 Active 143434477 Problem Chronic kidney disease, stage 4 (severe) N18.4 Active 004065785 Problem Functional diarrhea K59.1 Active 00704006 Problem Hypokalemia E87.6 Active 51128581 Problem Mixed stress and urge urinary incontinence N39.46 Active 333354001 Problem History of anemia Z86.2 Active 904062634 Problem Other seasonal allergic rhinitis J30.2 Active 971175766 ALLERGIES No Information ENCOUNTERS Encounter Location Date Diagnosis [facility] [id number] [place] [address] 43806- 8303 Oct, [facility] [address] 74422- 0672 August, Fibromyalgia M79.7 [place] [address] 25698- 3342 August, [place] [address] 72787- 4259 August, [facility] [address] 27502- 5239 August, Abnormal chest CT R93.8 [place] [address] 54785- 4251 August, Generalized anxiety disorder F41.1 and Major depressive disorder, recurrent episode with anxious distress F33.9 [facility] [id number] [place] [address] 24654- [address] August, Ab[address] chest [address] R93.8 [facility] [id number] [place] [address] 82255- 7305 Jul, [facility] [id number] [place] [address] 80543- 4586 Jul, Chronic kidney disease, stage 4 (severe) N18.4 [facility] [id number] [place] [address] 31742- 8832 Jul, [facility] [address] 88703- 5598 Jul, Restless leg G25.81 ; Mixed stress and urge urinary incontinence N39.46 and Fibromyalgia M79.7 [facility] [id number] [place] [address] 84567- 0690 Jul, Chronic kidney disease, stage 4 (severe) N18.4 [facility] [id number] [place] [address] 64944- 3874 Jun, Orthostatic hypotension I95.1 ; Chronic kidney disease, stage 4 (severe) N18.4 ; Chest wall discomfort R07.89 and Body mass index (BMI) of 40.0-44.9 in adult Z68.41 [facility] [id number] [place] [address] 15726- 5355 Jun, [facility] [id number] [place] [address] 95610- 7404 Jun, Orthostatic hypotension I95.1 [facility] [id number] [place] [address] 67644- 2918 Jun, [facility] [id number] [place] [address] 73960 -0867 Jun, Orthostatic hypotension I95.1 ; Dysuria R30.0 and Acute cystitis without hematuria N30.00 [facility] [id number] [place] [address] 13669- 1029 Jun, [facility] [id number] [place] [address] 97951- 0120 Jun, Chronic kidney disease, stage 4 (severe) N18.4 [facility] [id number] [place] [address] 36856- 9106 Jun, Fibromyalgia M79.7 [facility] [id number] [place] [address] 38989- 5271 Jun, [facility] [id number] [place] [address] 93908- 7303 Jun, [facility] [id number] [place] [address] 65517- [address] May, [address] R93.8 and Stage 3 chronic kidney disease N18.3 [facility] [id number] [place] [address] 63629- 2575 May, Chronic kidney disease, stage 4 (severe) N18.4 [facility] [id number] [place] [address] 81339- 2806 May, Chronic kidney disease, stage 4 (severe) N18.4 [facility] [id number] [place] [address] 00199- [address] May, [address] R93.8 [facility] [id number] [place] [address] 06214- 2333 May, [facility] [id number] [place] [address] 35360- 3240 May, [facility] [id number] [place] [address] 82468- 6051 May, Generalized anxiety disorder F41.1 and Major depressive disorder, recurrent episode with anxious distress F33.9 [facility] [place] [id number] [place] [address] 06356- 7466 May, Mood disorder F39 [facility] [place] [id number] [place] [address] 65934- 5850 Apr, [facility] [id number] [place] [address] 11000- 5838 Apr, Infected skin lesion L08.9 and Muscle strain of right shoulder region, initial encounter S46.911A [facility] [id number] [place] [address] 24639- 5182 Apr, Generalized anxiety disorder F41.1 and Major depressive disorder, recurrent episode with anxious distress F33.9 [facility] [id number] [place] [address] 86956- 5841 Apr, [facility] [id number] [place] [address] 85571- 2233 Apr, Recent urinary tract infection Z87.440 and Hypothyroid E03.9 [facility] [id number] [place] [address] 64853- 6851 Apr, Generalized anxiety disorder F41.1 and Major depressive disorder, recurrent episode with anxious distress F33.9 [facility] [id number] [place] [address] 98522- 1988 Apr, Recent urinary tract infection Z87.440 [facility] [id number] [place] [address] 04358- 3860 Mar, [facility] [id number] [place] [address] 76697 -2617 Mar, Dysuria R30.0 ; Acute cystitis without hematuria N30.00 and BMI 40.0-44.9, adult Z68.41 [facility] [id number] [place] [address] 95726- 0330 14 Mar, 2017 [facility] [id number] [place] [address] 50562- 5480 Mar, [facility] [id number] [place] [address] 33200- 8757 07 Mar, 2017 Generalized anxiety disorder F41.1 and Major depressive disorder, recurrent episode with anxious distress F33.9 [facility] [id number] [place] [address] 12097- 6657 Feb, Conjunctivitis, bacterial H10.9 [facility] [id number] [place] [address] 49636- 3863 Feb, [facility] [id number] [place] [address] 84953 -8862 15 Feb, 2017 Conjunctivitis, bacterial H10.9 [facility] [id number] [place] [address] 37364- 4018 Feb, [facility] [id number] [place] [address] 20130 -1452 Feb, Dysuria R30.0 ; Acute cystitis N30.00 and BMI 40.0-44.9, adult Z68.41 [facility] [id number] [place] [address] 21013- 2002 Feb, [facility] [address] 27381- 3739 Feb, Generalized anxiety disorder F41.1 and Major depressive disorder, recurrent episode with anxious distress F33.9 [place] [address] 48562- 2674 Feb, Mood disorder F39 and BMI 40.0-44.9, adult Z68.41 [facility] [address] 24383- 6959 Jan, [facility] [address] 66884- 5978 Jan, [facility] [address] 00155- 7289 Jan, Hypothyroid E03.9 [facility] [id number] [place] [address] 29481- 1151 Jan, [facility] [id number] [place] [address] 72076- 1477 Jan, Chronic kidney disease, unspecified N18.9 ; Hypokalemia E87.6 ; Essential (primary) hypertension I10 ; Fibromyalgia M79.7 ; Coronary artery disease involving creek coronary artery of creek heart, angina presence unspecified I25.10 ; Hypothyroid E03.9 and Encounter for immunization Z23 [facility] [id number] [place] [address] 71624- 4784 04 Jan, 2017 Hypothyroid E03.9 [facility] [address] 24797- 5481 Jan, [facility] [address] [place] [address]- 5677 28 Dec, 2016 Vitamin D deficiency E55.9 [facility] [id number] [place] [address] 47211- 8074 28 Dec, 2016 Primary osteoarthritis of left knee M17.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 [facility] [id number] [place] [address] 13368- 7250 19 Dec, 2016 Fibromyalgia M79.7 [facility] [id number] [place] [address] 49844- 4330 18 Dec, 2016 Mood disorder F39 [facility] [id number] [place] [address] 72843- 7383 13 Dec, 2016 [facility] [id number] [place] [address] 24192- 6232 13 Dec, 2016 Generalized anxiety disorder F41.1 and Major depressive disorder, recurrent episode with anxious distress F33.9 [facility] [id number] [place] [address] 76641- 8488 11 Dec, 2016 [place] [id number] [place] [address] 91119- 1246 08 Dec, 2016 Streptococcal meningitis G00.2 [facility] [id number] [place] [address] 17591- 7196 07 Dec, 2016 Streptococcal meningitis G00.2 [facility] [id number] [place] [address]- 9691 07 Dec, 2016 [facility] [id number] [place] [address] 88015- 9390 06 Dec, 2016 Streptococcal meningitis G00.2 [facility] [id number] [place] [address] 28318- 1756 Dec, [facility] [id number] [place] [address] 88607- 2381 Dec, Major depressive disorder, recurrent episode with anxious distress F33.9 [facility] [id number] [place] [address] 20191- 9927 Nov, Fever, unspecified fever cause R50.9 [facility] [id number] [place] [address] 54914- 4273 Nov, [facility] [id number] [place] [address] 33265- 1090 Nov, Hypothyroid E03.9 [facility] [id number] [place] [address] 79937- 8316 Nov, Generalized anxiety disorder F41.1 and Major depressive disorder, recurrent episode with anxious distress F33.9 [facility] [id number] [place] [address] 83816- 7730 Nov, [facility] [address] [id number] Oct, Dental examination Z01.20 [facility] [id number] [place] [address] 50425- 7489 Oct, Generalized anxiety disorder F41.1 and Major depressive disorder, recurrent episode with anxious distress F33.9 [facility] [id number] [place] [address] 36435- 8835 Oct, Chronic kidney disease, stage 4 (severe) N18.4 [facility] [id number] [place] [address] 91583- 8305 Oct, [facility] [id number] [place] [address] 03859- 9439 Oct, Fibromyalgia M79.7 [facility] [id number] [place] [address] 91853- 6938 Oct, [facility] [id number] [place] [address] 33917- 1295 Oct, Generalized anxiety disorder F41.1 ; Major depressive disorder, recurrent episode with anxious distress F33.9 and Bipolar disorder, current episode manic without psychotic features F31.10 [facility] [place] [id number] [address]- 4836 Sep, [facility] [place] [id number] [place] [address] 78258- 0147 Sep, [facility] [id number] [place] [address] 75320- 7519 15 Sep, 2016 Vitamin D deficiency E55.9 [facility] [id number] [place] [address] 13608- 6618 14 Sep, 2016 Vitamin D deficiency E55.9 [facility] [id number] [place] [address] 61202- 6055 Sep, [facility] [id number] [place] [address] 95988- 2464 Sep, Chronic kidney disease, stage 4 (severe) N18.4 ; Hypothyroid E03.9 ; Restless leg G25.81 ; Fibromyalgia M79.7 ; Essential ( primary) hypertension I10 ; Vitamin D deficiency E55.9 ; Dyspepsia R10.13 ; Anemia in chronic kidney disease D63.1 ; Chronic kidney disease, unspecified N18.9 ; Coronary artery disease involving creek coronary artery of creek heart , angina presence unspecified I25.10 ; Screening breast examination Z12.39 and Low back pain M54.5 [facility] [place] [id number] [place] [address] 62654- 3104 August, Generalized anxiety disorder F41.1 and Major depressive disorder, recurrent episode with anxious distress F33.9 [facility] [id number], [place] [address]- 7281 August, Generalized anxiety disorder F41.1 and Major depressive disorder, recurrent episode with anxious distress F33.9 [facility] [id number] [place] [address] 38247- 3837 August, Fibromyalgia M79.7 [facility] [id number] [place] [address] 30989- 5468 Jul, Generalized anxiety disorder F41.1 and Major depressive disorder, recurrent episode with anxious distress F33.9 [facility] [id number] [place] [address] 79031- 9336 Jul, Fibromyalgia M79.7 [facility] [id number] [place] [address] 20509- 3321 Jul, Generalized anxiety disorder F41.1 [facility] [id number] [place] [address] 49493- 9575 May, [facility] [id number] [place] [address] 51945- 1685 May, Hypothyroid E03.9 [facility] [id number] [place] [address] 77288- 4217 May, Chronic kidney disease, stage 4 (severe) N18.4 ; Hypothyroid E03.9 ; Restless leg G25.81 ; Fibromyalgia M79.7 ; Essential ( primary) hypertension I10 ; Vitamin D deficiency E55.9 ; Dyspepsia R10.13 ; Acute non-recurrent maxillary sinusitis J01.00 ; Anemia in chronic kidney disease D63.1 ; Chronic kidney disease, unspecified N18.9 and Coronary artery disease involving creek coronary artery of creek heart, angina presence unspecified I25.10 [facility] [place] [id number] [place] [address] 27157- 7204 May, Vitamin D deficiency, unspecified E55.9 [facility] [place] [id number] [place] [address] 60421- 2854 May, Generalized anxiety disorder F41.1 and Major depressive disorder, recurrent episode with anxious distress F33.9 [facility] [id number] [place] [address] 05944- 6136 Apr, Pain in right knee M25.561 and Pain in left knee M25.562 [facility] [id number] [place] [address] 81159- 0231 Apr, [facility] [id number] [place] [address]- 0262 Apr, [facility] [id number] [place] [address] 78610- 5247 Apr, [facility] [id number] [place] [address] 54753- 6141 Mar, Generalized anxiety disorder F41.1 and Major depressive disorder, recurrent episode with anxious distress F33.9 [facility] [id number] [place] [address] 19903- 9237 Mar, Generalized anxiety disorder F41.1 and Major depressive disorder, recurrent episode with anxious distress F33.9 [facility] [id number] [place] [address] 46513- 0787 Mar, [facility] [id number] [place] [address] 39972- 7681 Mar, [facility] [id number] [place] [address] 69509- 0724 Mar, [facility] [id number] [place] [address] 01818- 5083 Mar, Asthma J45.909 and Fibromyalgia M79.7 [facility] [id number] [place] [address] 98410- 2976 Mar, Chronic kidney disease, stage 4 (severe) N18.4 ; Vitamin D deficiency E55.9 and Essential (primary) hypertension I10 [facility] [id number] [place] [address] 32284- 9637 Feb, [facility] [id number] [place] [address] 77912- 1546 Feb, Dysuria R30.0 ; Mixed stress and urge urinary incontinence N39.46 ; Fibromyalgia M79.7 and Chronic kidney disease, stage IV (severe) N18.4 [facility] [id number] [place] [address] 54909- 9104 Feb, Chronic kidney disease, stage 4 (severe) N18.4 [facility] [id number] [place] [address] 42623- 9917 Feb, Chronic kidney disease, stage 4 (severe) N18.4 [facility] [id number] [place] [address] 89606- 0882 Feb, [facility] [id number] [place] [address] 87807- 3121 Feb, Vitamin D deficiency, unspecified E55.9 [facility] [id number] [place] [address] 12283- 2047 Jan, [facility] [id number] [place] [address] 20661- 1173 Jan, [facility] [id number] [place] [address] 21503- 7095 Dec, [facility] [id number] [place] [address] 19699- 6013 Dec, Chronic kidney disease, stage 4 (severe) N18.4 [facility] [id number] [place] [address] 01637- 7984 Dec, Dysthymic disorder F34.1 and Generalized anxiety disorder F41.1 [facility] [id number] [place] [address] 64114- 8208 Dec, [facility] [id number] [place] [address] 48365- 4614 Dec, [facility] [id number] [place] [address] 31796- 6674 08 Dec, 2015 Dysthymic disorder F34.1 and Generalized anxiety disorder F41.1 [facility] [id number] [place] [address] 52339- 3269 08 Dec, 2015 Dysuria R30.0 ; Chronic kidney disease, stage 4 (severe) N18.4 ; Hypertension I10 ; Dyspepsia R10.13 ; Yeast dermatitis B37.2 ; Palpitations R00.2 ; Hypothyroid E03.9 ; Functional diarrhea 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 [id number] [place] [address] 89202 -5804 Dec, [facility] [address] 59975 -5425 Nov, Dysuria R30.0 and Stress incontinence N39.3 [place] [address] 29067- 1725 Nov, [place] [address] 34703- 7474 Nov, [place] [address] 00585- 0484 Nov, Osteoarthritis of knees, bilateral M17.0 [place] [address] 09647- 4023 Nov, Dysthymic disorder F34.1 and Generalized anxiety disorder F41.1 [facility] [address] 49895- 4064 Nov, [facility] [id number] [place] [address] 96598- 0829 Nov, [facility] [place] [address] 69092- 2240 Nov, Urgency of urination R39.15 [place] [address] 05982- 5219 Nov, [place] [address] 03375- 1459 Nov, Chronic kidney disease, stage 4 (severe) N18.4 [facility] [address] 86720- 8830 Oct, Hypertension I10 ; Coronary artery disease involving creek coronary artery of creek heart, angina presence unspecified I25.10 ; Palpitations R00.2 ; Hypothyroid E03.9 ; Right foot pain M79.671 ; Functional diarrhea K59.1 and Other seasonal allergic rhinitis J30.2 [place] [address] [address] [place] [id number] [place] [address] Oct, Dysthymic disorder F34.1 and Generalized anxiety disorder F41.1 [place] [address] [address] Sep, [place] [address] [address] [place] [id number] [place] [address] Sep, [place] [address] [place] [id number] [place] [address]- [address] Sep, [place] [address] [address] Sep, [place] [address] [place] [id number] [place] [address] Sep, [place] [address] [place] [id number] [place] [address] Sep, Dysthymic disorder F34.1 and Generalized anxiety disorder F41.1 [place] [address] [place] [id number] [place] [address] Sep, Asthma with acute exacerbation in adult J45.901 ; Dysuria R30.0 ; Chronic kidney disease, stage 4 (severe) N18.4 and History of anemia Z86.2 [place] [address] [place] [id number] [place] [address]- [address] Sep, Generalized anxiety disorder F41.1 and Dysthymic disorder F34.1 [place] [address] [address] [place] [id number] [place] [address]- [address] August, Screening breast examination Z12.39 and Acute recurrent maxillary sinusitis J01.01 [place] [address] [address] August, Osteoarthritis of knees, bilateral M17.0 [place] [id number] [place] [address] 43623- 5412 August, Chronic kidney disease, stage 4 (severe) N18.4 ; Acute non- recurrent maxillary sinusitis J01.00 ; Urinary problem R39.89 ; Bowel habit changes R19.4 ; Functional diarrhea K59.1 and History of colon polyps Z86.010 [place] [id number] [place] [address] 51031- 1534 Jul, Dysthymic disorder F34.1 and Generalized anxiety disorder F41.1 [place] [address] 18051- 2976 Jul, [facility] [id number] [place] [address] 45135- 2160 Jul, Dysthymic disorder F34.1 ; Generalized anxiety disorder F41.1 and roasterman use of drug Z79.899 [place] [id number] [place] [address] 53054- 7894 Jul, [facility] [id number] [place] [address] 06836- 6054 Jun, [facility] [id number] [place] [address] 85934- 5097 Jun, [facility] [place] [id number] [place] [address] 71567- 6651 May, [facility] [id number] [place] [address] 34308- 9208 May, Dysthymic disorder F34.1 and Generalized anxiety disorder F41.1 [place] [id number] [place] [address] 52860- 0638 Apr, Kidney disease N28.9 [place] [id number] [place] [address] 57543- 4108 Apr, Generalized anxiety disorder F41.1 and Dysthymic disorder F34.1 [place] [id number] [place] [address] 91126- 9056 Apr, Chronic kidney disease, stage 4 (severe) N18.4 [place] [id number] [place] [address] 54910- 4726 Apr, Generalized anxiety disorder F41.1 ; Major depression, recurrent F33.9 and Sleep disturbance G47.9 [place] [address] 41366- 0194 Mar, Generalized anxiety disorder F41.1 and Dysthymic disorder F34.1 [place] [address] 46775- 5341 Mar, Generalized anxiety disorder F41.1 ; Dysthymic disorder F34.1 and Insomnia G47.[address] 30008- 5106 Mar, [place] [address] 42488- 6254 Mar, [address] 60847- 9032 Mar, Osteoarthritis of knees, bilateral M17.[address] 58359- 1428 Mar, Hypertension I10 ; Hypothyroid E03.9 ; Dysthymic disorder F34.1 ; Chronic kidney disease, stage 4 (severe) N18.4 and Nausea & vomiting R11.2 [place] [id number] [place] [address] 43616- 2596 Mar, Generalized anxiety disorder F41.1 ; Dysthymic disorder F34.1 and Insomnia G47.00 [place] [id number] [place] [address] 52701- 7671 Mar, Dehydration E86.0 ; Chronic kidney disease, stage 4 (severe ) N18.4 and Nausea & vomiting R11.2 [facility] [address], [place] [address] Mar, Gastroenteritis K52.9 [facility] [id number] [place] [address] 30945- 0739 Mar, [facility] [id number] [place] [address] 41302- 4345 Mar, [facility] [address] 86109- 5948 Feb, Dysthymic disorder F34.1 and Generalized anxiety disorder F41.1 [place] [address] [address] 09244- 1544 Jan, UTI (urinary tract infection) N39.0 ; Asthma J45.909 ; Coronary artery disease involving creek coronary artery of creek heart, angina presence unspecified I25.10 ; Hypertension I10 ; Hypothyroid E03.9 ; Vitamin D deficiency E55.9 ; Insomnia G47.00 ; Palpitations R00.2 ; Depressed F32.9 ; Restless leg G25.81 and Anxiety F41.9 [place] [id number] [place] [address] 96899- 1835 Jan, Dysthymic disorder F34.1 and Generalized anxiety disorder F41.1 [place] [id number] [place] [address] 85529- 6356 Jan, [place] [id number] [place] [address] 48312- 9979 Dec, [place] [id number] [place] [address] 49223- 7869 Dec, Alkalosis 276.3 ; Chronic kidney disease, 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.4 ; Hyperpotassemia 276.7 ; Secondary hyperparathyroidism, renal 588.81 ; Proteinuria 791.0 ; Unspecified vitamin D deficiency 268.9 ; Anemia in chronic kidney disease 285.21 ; Other and unspecified hyperlipidemia 272.4 ; Hypertension, essential, benign 401.1 and Chronic kidney disease (CKD), stage III (moderate) 585.3 [place] [address] [address], [place] [address]- 8986 Dec, [place] [id number] [place] [address] 66596- 7835 Dec, Depressive disorder, not elsewhere classified 311 and Generalized anxiety disorder 300.02 [place] [id number] [place] [address] 14626- 5917 Dec, [place] [id number] [place] [address] 00610- 4360 Dec, [place] [id number] [place] [address] 71051- 9434 Nov, Depressive disorder, not elsewhere classified 311 and Generalized anxiety disorder 300.02 [id number] [place] [address] 41357- 4585 Nov, Arthritis of both knees 716.96 [id number] [place] [address] 70838- 2769 Nov, PAF (paroxysmal atrial fibrillation) 427.31 ; CAD (coronary artery disease) 414.00 ; Chest pain 786.50 and Chronic kidney disease (CKD) stage G4/A1, severely decreased glomerular filtration rate (GFR) between 15-29 mL/min/1.73 square meter and albuminuria creatinine ratio less than 30 mg/g 585.4 [id number] [place] [address] 66284- 4148 Oct, Coronary atherosclerosis of unspecified type of vessel, creek or graft 414.00 ; Chronic kidney disease, 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.4 ; Hypertension 401.9 and Edema 782.3 [id number] [place] [address] 01590- 0810 Oct, Depressive disorder, not elsewhere classified 311 and Generalized anxiety disorder 300.02 [address] [place] [address] 22931- 9915 Oct, Depressive disorder, not elsewhere classified 311 and Generalized anxiety disorder 300.02 [facility] [id number] [place] [address] 22542- 8406 Oct, [facility] [id number] [place] [address] 03216- 9249 Oct, [facility] [id number] [place] [address] 75855- 3649 Sep, [facility] [address] 72068- 1752 Sep, Chronic kidney disease, 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.4 [facility] [address] 52553- 9221 Sep, [facility] [id number] [place] [address] 94291- 2426 Sep, Coronary atherosclerosis of unspecified type of vessel, creek or graft 414.00 ; Hypertension 401.9 ; Edema 782.3 and Hypothyroidism 244.9 [facility] [id number] [place] [address] 86048- 5186 Sep, Coronary atherosclerosis of unspecified type of vessel, creek or graft 414.00 ; Hypertension 401.9 ; Fibromyalgia 729.1 ; Edema 782.3 ; Hypothyroidism 244.9 and Anemia 285.9 [facility] [id number] [place] [address] 47561- 3002 Sep, Anxiety disorder, unspecified 300.00 and Depressive disorder , not elsewhere classified 311 [facility] [id number] [place] [address] 38764- 7243 Sep, [facility] [id number] [place] [address] 01492- 8423 August, Generalized anxiety disorder 300.02 [facility] [id number] [place] [address] 18488- 8455 August, Closed fracture of lateral malleolus 824.2 [facility] [id number] [place] [address] 09263- 3591 14 Jul, 2014 [facility] [place] [facility] [address] [id number] [place] [address]- 0291 Jul, [facility] [place] [facility] [address] [id number] [place] [address]- 9985 Jun, [facility] [place] [facility] [address] [facility] [id number] [place] [address]- 9602 Jun, [facility] [place] [facility] [address] [id number] [place] [address]- 5298 Jun, [facility] [place] [facility] [address] [id number] [place] [address]- 6151 Jun, [facility] [place] [facility] [address] [facility] [id number] [place] [address]- 0912 Jun, [facility] [place] [facility] [address] [facility] [id number] [place] [address]- 0053 Jun, [facility] [place] [facility] [address] [facility] [id number], [place] [address]- 5137 May, [facility] [place] [facility] [address] [facility] [id number] [place] [address]- 0737 May, 2014 [facility] [place] [facility] [address] [facility] [id number], [place] [address]- 4378 18 May, 2014 [facility] [place] [facility] [address] [facility] [id number], [place] [address]- 6336 18 May, 2014 [facility] [place] [facility] [address] [facility] [id number], [place] [address]- 6107 16 May, 2014 [facility] [place] [facility] [address] [facility] [id number] [place] [address]- 4225 16 May, 2014 [facility] [place] [facility] [address] [facility] [id number], [place] [address]- 8045 13 May, 2014 [facility] [place] [facility] [address] [facility] [id number] 5887 13 May, 2014 [facility] [place] [facility] [address] [id number] [place] [address]- 7136 May, 2014 [facility] [place] [facility] [address] [id number] [place] [address]- 3026 May, [facility] [place] [facility] [address] [id number] [place] [address]- 1988 Apr, [facility] [place] [facility] [address] [id number] [place] [address]- 5127 Apr, [facility] [place] [facility] [address] [id number] [place] [address]- 3365 Mar, [facility] [place] [facility] [address] [id number] [place] [address]- 5608 Mar, [facility] [place] [facility] [address] [id number] [place] [address]- 2464 Mar, [facility] [place] [facility] [address] [id number] [place] [address]- 4132 Mar, [facility] [place] [facility] [address] [id number] [place] [address]- 2908 Mar, [facility] [place] [facility] [address] [id number] [place] [address]- 9104 Mar, [facility] [place] [facility] [address] [id number] [place] [address]- 9710 Mar, [facility] [place] [facility] [address] [id number] [place] [address]- 0016 Feb, [facility] [place] [facility] [address] [id number] [place] [address]- 3305 Feb, [facility] [place] [facility] [address] [id number] [place] [address]- 4391 Feb, [facility] [place] [facility] [address] [id number] [place] 2320 Jan, [facility] [place] [facility] [address] [id number] [place] [address]- 7996 Jan, [facility] [place] [facility] [address] [id number] [place] [address]- 9626 Jan, [facility] [place] [facility] [address] [id number] [place] [address]- 0913 Jan, [facility] [place] [facility] [address] [id number] [place] [address]- 4969 Jan, [facility] [place] [facility] [address] [id number] [place] [address]- 4093 Jan, [facility] [place] [facility] [address] [id number] [place] [address]- 9202 Jan, [facility] [place] [facility] [address] [id number] [place] [address]- 4957 Jan, [facility] [place] [facility] [address] [id number] [place] [address]- 9078 Jan, [facility] [place] [facility] [address] [id number] [place] [address]- 1603 Jan, [facility] [place] [facility] [address] [id number] [place] [address]- 2971 Nov, [facility] [place] [facility] [address] [id number] [place] [address]- 6662 Nov, [facility] [place] [facility] [address] [id number] [place] [address]- 4670 Nov, [facility] [place] [facility] [address] [id number] [place] [address]- 5732 Oct, [facility] [place] [facility] [address] [id number] [place] [address]- 1757 Oct, [facility] [place] [facility] [address] [id number] [place] 9001 Oct, [facility] [place] [facility] [address] [id number] [place] [address]- 0924 Oct, [facility] [place] [facility] [address] [id number] [place] [address]- 6467 Oct, [facility] [place] [facility] [address] [id number] [place] [address]- 1423 Oct, [facility] [place] [facility] [address] [id number] [place] [address]- 3980 Oct, [facility] [place] [facility] [address] [id number] [place] [address]- 8205 Oct, [facility] [place] [facility] [address] [id number] [place] [address]- 3908 Oct, [facility] [place] [facility] [address] [id number] [place] [address]- 9455 Sep, [facility] [place] [facility] [address] [id number] [place] [address]- 4323 Sep, [facility] [place] [facility] [address] [id number] [place] [address]- 0488 Sep, [facility] [place] [facility] [address] [id number] [place] [address]- 6740 Sep, [facility] [place] [facility] [address] [id number] [place] [address]- 7163 Sep, [facility] [place] [facility] [address] [id number] [place] [address]- 8559 Sep, [facility] [place] [facility] [address] [id number] [place] [address]- 4624 Sep, [facility] [place] [facility] [address] [id number] [place] [address]- 9460 Sep, [facility] [place] [facility] [address] [id number] [place] [address]- 0944 Sep, [facility] [place] [facility] [address] [id number] [place] [address]- 0796 August, [facility] [place] [facility] [address] [id number] [place] [address]- 2180 August, [facility] [place] [facility] [address] [id number] [place] [address]- 4883 August, [facility] [place] [facility] [address] [id number] [place] [address]- 4533 August, [facility] [place] [facility] [address] [id number] [place] [address]- 3854 August, [facility] [place] [facility] [address] [id number] [place] [address]- 6345 August, [facility] [place] [facility] [address] [id number] [place] [address]- 8220 Jul, [facility] [place] [facility] [address] [id number] [place] [address]- 9244 Jul, [facility] [place] [facility] [address] [id number] [place] [address]- 3512 Jul, [facility] [place] [facility] [address] [id number] [place] [address]- 0474 Jul, [facility] [place] [facility] [address] [id number] [place] [address]- 7435 Jul, [facility] [place] [facility] [address] [id number] [place] [address]- 7115 Jul, [facility] [place] [facility] [address] [id number] [place] [address]- 4301 Jun, [facility] [place] [facility] [address] [id number] [place] [address]- 5834 Jun, [facility] [place] [facility] [address] [id number] [place] [address]- 6387 May, [facility] [place] [facility] [address] [id number] [place] [address]- 2127 May, [facility] [place] [facility] [address] [id number] [place] [address]- 2279 May, [facility] [place] [facility] [address] [id number] [place] [address]- 3605 10 May, 2013 [facility] [address] [id number] [place] [address]- 2957 Apr, [facility] [place] [facility] [address] [id number] [place] [address]- 6308 Apr, [facility] [address] [id number] [place] [address]- 1523 18 Mar, 2013 [facility] [place] [facility] [address] [id number] [place] [address]- 6482 18 Mar, 2013 [facility] [address] [id number] [place] [address]- 2908 Mar, [facility] [place] [facility] [address] [id number] [place] [address]- 2083 Mar, [facility] [address] [facility] [id number] [place] [address]- 5697 Mar, [facility] [address] [id number] [place] [address]- 5419 Mar, [facility] [place] [facility] [address] [id number] [place] [address]- 1715 Feb, [facility] [address] [facility] [id number] [place] [address]- 5651 Feb, [facility] [place] [facility] [address] [id number] [place] [address]- 4959 14 Feb, 2013 [facility] [place] [facility] [address] [id number] [place] [address]- 8499 14 Feb, 2013 [facility] [place] [facility] [address] [id number] [place] 5414 05 Feb, 2013 [facility] [place] [facility] [address] [facility] [id number] [place] [address]- 2091 05 Feb, 2013 [facility] [place] [facility] [address] [id number] [place] [address]- 7974 Jan, [facility] [place] [facility] [address] [id number] [place] [address]- 4004 Jan, [facility] [place] [facility] [address] [id number] [place] [address]- 9028 Jan, [facility] [place] [facility] [address] [id number] [place] [address]- 5473 Jan, [facility] [place] [facility] [address] [id number] [place] [address]- 5988 Jan, [facility] [place] [facility] [address] [id number] [place] [address]- 4423 Jan, [facility] [place] [facility] [address] [id number] [place] [address]- 5589 Dec, [facility] [place] [facility] [address] [id number] [place] [address]- 1766 Dec, [facility] [place] [facility] [address] [id number] [place] [address]- 8734 Nov, [facility] [place] [facility] [address] [id number] [place] [address]- 9468 Nov, [facility] [place] [facility] [address] [id number] [place] [address]- 0502 Oct, [facility] [place] [facility] [address] [id number] [place] [address]- 4412 Oct, [facility] [place] [facility] [address] [id number] [place] [address]- 1998 Oct, [facility] [place] [facility] [address] [id number] [place] [address]- 7122 Oct, [facility] [place] [facility] [address] [id number] [place] [address]- 8405 Oct, [facility] [place] [facility] [address] [id number] [place] [address]- 2540 Oct, [facility] [place] [facility] [address] [id number] [place] [address]- 2380 Sep, [facility] [address] [id number] [place] [address]- 4257 Sep, [facility] [place] [facility] [address] [id number] [place] [address]- 7447 Sep, [facility] [address] [id number] [place] [address]- 9506 Sep, [facility] [place] [facility] [address] [id number] [place] [address]- 9997 August, [facility] [address] [id number] [place] [address]- 8120 August, [facility] [address] [id number] [place] [address]- 7117 August, [facility] [address] [id number] [place] [address]- 4027 August, [facility] [address] [id number] [place] [address]- 2682 August, [facility] [address] [id number] [place] [address]- 9899 Jul, [facility] [place] [facility] [address] [id number] [place] [address]- 8697 Jul, [facility] [address] [id number] [place] [address]- 6497 Jul, [facility] [place] [facility] [address] [id number] [place] [address]- 8216 Jul, [facility] [place] [facility] [address] [id number] [place] [address]- 3096 Jul, [facility] [place] [facility] [address] [id number] [place] [address]- 7171 Jul, [facility] [place] [facility] [address] [id number] [place] [address]- 6421 Jul, [facility] [place] [facility] [address] [id number] [place] [address] Jul, [facility] [address] [facility] [id number] [place] [address] Jul[facility] [address] [facility] [id number] [place] [address] Jul, [facility] [address] [facility] [id number] [id number] Jun, [facility] [address] [facility] [id number] [place] [address] Jun, [facility] [address] [facility] [id number] [place] [address] Jun, [facility] [address] [facility] [id number] [place] [address] Jun, [facility] [address] [id number] [place] [address] Jun, [facility] [address] [id number] [place] [address] May, [facility] [address] [id number] [place] [address] May, [facility] [address] [facility] [id number], [place] [address] May, [facility] [address] [facility] [id number] [place] [address] Apr, [facility] [address] [facility] [id number] [place] [address] Apr, [facility] [address] [facility] [id number] [place] [address] Apr, [facility] [address] [facility] [id number] [place] [address] Apr, [facility] [address] [facility] [id number], [place] [address] Apr, [facility] [place] [facility] [address] [id number] [place] [address] Apr, [facility] [place] [facility] [address] [id number] [place] [address] Mar, [facility] [place] [facility] [address] [id number] [place] [address] Mar, [facility] [place] [facility] [address] [id number] [place] [address] Mar, [facility] [place] [facility] [address] [id number] [place] [address] Mar, [facility] [place] [facility] [address] [id number] [place] [address] Feb, [facility] [place] [facility] [address] [id number] [place] [address] Feb, [facility] [place] [facility] [address] [id number] [place] [address] Feb, [facility] [place] [facility] [address] [id number] [place] [address] Feb, [facility] [place] [facility] [address] [id number], [place] [address] Feb, [facility] [place] [facility] [address] [facility] [id number], [place] [address] Feb, [facility] [place] [facility] [address] [id number], [place] [address] Feb, [facility] [place] [facility] [address] [id number], [place] [address] Feb, [facility] [place] [facility] [address] [id number], [place] [address] Feb, [facility] [place] [facility] [address] [facility] [id number], [place] [address] Feb, [facility] [place] [facility] [address] [id number], [place] [address] Feb, [facility] [place] [facility] [address] [id number] [place] [address] Feb, [facility] [place] [facility] [address] [id number], [place] [address] Feb, [facility] [place] [facility] [address] [facility] [id number] [place] [address] Feb, [facility] [place] [facility] [address] [id number] [place] [address] Feb, [facility] [place] [facility] [address] [facility] [id number] [place] [address] Feb, [facility] [place] [facility] [address] [facility] [id number] [place] [address] Jan, [facility] [place] [facility] [address] [facility] [id number], [place] [address] Jan, [facility] [place] [facility] [address] [facility] [id number], [place] [address] 31 Jan, 2012 [facility] [place] [facility] [address] [facility] [id number], [place] [address]- [address] 31 Jan, 2012 [facility] [place] [facility] [address] [facility] [id number], [place] [address]- [address] 30 Jan, 2012 [facility] [place] [facility] [address] [facility] [id number], [place] [address]- [address] Jan, [facility] [place] [facility] [address] [facility] [id number], [place] [address] 25 Jan, 2012 [facility] [place] [facility] [address] [facility] [id number], [place] [address] 16 Jan, 2012 [facility] [place] [facility] [address] [facility] [id number], [place] [address]- [address] 16 Jan, 2012 [facility] [place] [facility] [address] [facility] [id number], [place] [address] 15 Jan, 2012 [facility] [place] [facility] [address] [id number] [place] [address] 15 Jan, 2012 [facility] [place] [facility] [address] [id number] [place] [address] 01 Jan, 2012 [facility] [place] [facility] [address] [id number] [place] [address] 2546 26 Dec, 2011 [facility] [place] [facility] [address] [id number] [place] [address] 2546 26 Dec, 2011 [facility] [place] [facility] [address] [id number] [place] [address] 2541 24 Dec, 2011 [facility] [place] [facility] [address] [id number] [place] [address] 1566 23 Dec, 2011 [facility] [place] [facility] [address] [id number] [place] [address] 17[address] 22 Dec, 2011 [facility] [place] [facility] [address] [id number] [place] [address] 6417 21 Dec, 2011 [facility] [place] [facility] [address] [id number] [place] [address] 2548 20 Dec, 2011 [facility] [place] [facility] [address] [id number] [place] [address] 2543 20 Dec, 2011 [facility] [place] [facility] [address] [id number] [place] [address] 07 Dec, 2011 [facility] [place] [facility] [address] [id number] [place] [address] 2546 06 Sep, 2011 [facility] [place] [facility] [address] [id number] [place] [address] 2546 06 Sep, 2011 [facility] [place] [facility] [address] [id number] [place] [address] 2546 05 Dec, 2011 [facility] [place] [facility] [address] [id number] [place] [address]- [address]46 23 Nov, 2011 [facility] [place] [facility] [address] [id number] [place] [address] 6477 Nov, [facility] [place] [facility] [address] [id number] [place] [address]- 7614 Nov, [facility] [place] [facility] [address] [id number] [place] [address] 6566 Nov, [facility] [place] [facility] [address] [id number] [place] [address]- 9[address] Nov, [facility] [place] [facility] [address] [id number] [place] [address] 1849 Nov, [facility] [place] [facility] [address] [id number] [place] [address] 4101 Nov, [facility] [place] [facility] [address] [id number] [place] [address] 6424 Nov, [facility] [place] [facility] [address] [id number] [place] [address] 7757 Oct, [facility] [place] [facility] [address] [id number] [place] [address] 8689 Oct, [facility] [place] [facility] [address] [id number] [place] [address] 7361 Oct, [facility] [place] [facility] [address] [id number] [place] [address] 30[address] Oct, [facility] [place] [facility] [address] [id number] [place] [address] 5394 Oct, [facility] [place] [facility] [address] [id number] [place] [address]- 8671 Oct, [facility] [place] [facility] [address] [id number] [place] [address] 8973 Oct, [facility] [place] [facility] [address] [id number] [place] [address]- 1068 Sep, [facility] [place] [facility] [address] [id number] [place] [address] 7561 Sep, [facility] [place] [facility] [address] [id number] [place] [address]- 09[address] August, [facility] [address] [id number] [place] [address] 1553 August, [facility] [place] [facility] [address] [id number] [place] [address] 8516 August, [facility] [address] [id number] [place] [address] 8156 August, [facility] [place] [facility] [address] [id number] [place] [address] 9919 Jul, [facility] [address] [id number] [place] [address] 6704 Jul, [facility] [place] [facility] [address] [id number] [place] [address]- 1318 Jul, [facility] [address] [id number] [place] [address] 3162 Jul, [facility] [place] [facility] [address] [id number] [place] [address]- 9384 Jul, [facility] [place] [facility] [address] [id number] [place] [address] 37[address] Jul, [facility] [place] [facility] [address] [id number] [place] [address]- 7331 Jul, [facility] [place] [facility] [address] [id number] [place] [address]- 6459 Jul, [facility] [place] [facility] [address] [id number] [place] [address]- 7316 Jul, [facility] [place] [facility] [address] [id number] [place] [address]- 0253 Jun, [facility] [place] [facility] [address] [id number] [place] [address]- 5268 Jun, [facility] [place] [facility] [address] [id number] [place] [address]- 1184 Jun, [facility] [place] [facility] [address] [id number] [place] [address]- [address]24 14 Jun, 2011 [facility] [place] [facility] [address] [id number] [place] [address]- 4232 Jun, [facility] [place] [facility] [address] [id number] [place] [address]- 9328 Jun, [facility] [place] [facility] [address] [id number] [place] [address] 4972 Jun, [facility] [place] [facility] [address] [id number] [place] [address]- 4785 May, [facility] [place] [facility] [address] [id number] [place] [address]- 0384 24 May, 2011 [facility] [place] [facility] [address] [id number] [place] [address] 1024 May, [facility] [place] [facility] [address] [id number] [place] [address]- 2668 May, [facility] [place] [facility] [address] [id number] [place] [address]- 8525 May, [facility] [place] [facility] [address] [id number] [place] [address]- 7842 Apr, [facility] [place] [facility] [address] [id number] [place] [address]- 7351 Apr, [facility] [place] [facility] [address] [id number] [place] [address]- 0196 Apr, [facility] [place] [facility] [address] [id number] [place] [address]- 1730 Apr, [facility] [place] [facility] [address] [id number] [place] [address]- 8724 Apr, [facility] [place] [facility] [address] [id number] [place] [address]- 2376 Mar, [facility] [place] [facility] [address] [id number], [place] [address] 7216 Mar, [facility] [place] [facility] [address] [id number] [place] [address]- 8964 Mar, [facility] [place] [facility] [address] [id number] [place] [address] Mar, [facility] [place] [facility] [address] [facility] [id number] [place] [address]- 6646 Mar, [facility] [place] [facility] [address] [id number] [place] [address]- 4613 Mar, [facility] [place] [facility] [address] [id number] [place] [address]- 6491 Mar, [facility] [place] [facility] [address] [id number] [place] [address]- 4998 Feb, [facility] [place] [facility] [address] [facility] [id number], [place] [address] Feb, [facility] [place] [facility] [address] [id number] [place] [address]- 0696 Feb, [facility] [place] [facility] [address] [facility] [id number] [place] [address]- 8804 Feb, [facility] [place] [facility] [address] [facility] [id number] [place] [address]- 4449 Jan, [facility] [place] [facility] [address] [id number], [place] [address] 3[address] Jan, [facility] [place] [facility] [address] [id number], [place] [address]- 0024 Jan, [facility] [place] [facility] [address] [id number] [place] [address]- 7095 Jan, [facility] [place] [facility] [address] [facility] [id number], [place] [address]- 9076 Nov, [facility] [place] [facility] [address] [facility] [id number] [place] [address]- 9186 30 Mar, 2010 [facility] [place] [facility] [id number] [address] Mar, [facility] [id number] [address] Mar, [facility] [id number] [address] Mar, [facility] [id number] [address] [address]79 Mar, [facility] [id number] [address] [address] Mar, [facility] [id number] [place] [address]- [address] Feb, [facility] [id number] [address] Feb, [facility] [id number], [place] [address]- 5792 Jan, [facility] [id number], [place] [address] Jan, [facility] [id number], [place] [address]683 Jan, IMMUNIZATIONS No Known Immunizations SOCIAL HISTORY [...] Medical History zinker diverticulum was to see [facility] for this but cant affects swallowing. 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
--- OUTSIDE RECORDS SUMMARY | 2018-05-29 08:17 | XMS REPORT ---
Author Author ISABEL MAE [facility] Address [address] [place] [address] Care Team Providers Care Pastrycook Name Role Phone ISABEL MAE Unavailable PROBLEMS Type Condition ICD9-CM Code [id number] Code Onset Dates Condition Status SNOMED Code Problem Long-term use of high-risk medication Z79.899 Active 467788963 Problem Abnormal chest CT R93.8 Active 139856153 Problem Low back pain M54.5 Active 104605306 Problem Generalized anxiety disorder F41.1 Active 72068761 Problem Dysthymic disorder F34.1 Active 64310161 Problem Coronary artery disease involving elim ira coronary artery of elim ira heart, angina presence unspecified I25.10 Active 2667213012707 Problem Depressed F32.9 Active 56289418 Problem Fibromyalgia M79.7 Active 462876703 Problem Hypothyroid E03.9 Active 60525748 Problem Essential (primary) hypertension I10 Active 62323800 Problem Insomnia G47.00 Active 817685442 Problem Vitamin D deficiency E55.9 Active 46158699 Problem Anemia in chronic kidney disease D63.1 Active 724518457109279 Problem Chronic kidney disease, unspecified N18.9 Active 238937810 Problem Body mass index (BMI) of 40.0-44.9 in adult Z68.41 Active 525445687 Problem Stage 3 chronic kidney disease N18.3 Active 748074080 Problem Restless leg G25.81 Active 17630235 Problem Palpitations R00.2 Active 65116615 Problem Asthma J45.909 Active 451941967 Problem Primary osteoarthritis of left knee M17.12 Active 543278062 Problem Bipolar disorder, current episode manic without psychotic features F31.10 Active 347141306 Problem Mood disorder F39 Active 28610423 Problem Degenerative tear of medial meniscus of left knee M23.204 Active 989458889 Problem History of colon polyps Z86.010 Active 183760009 Problem Asthma with acute exacerbation in adult J45.901 Active 766256242 Problem Chronic kidney disease, stage 4 (severe) N18.4 Active 157891630 Problem Functional diarrhea K59.1 Active 79485684 Problem Hypokalemia E87.6 Active 92132308 Problem Mixed stress and urge urinary incontinence N39.46 Active 781057598 Problem History of anemia Z86.2 Active 131546621 Problem Other seasonal allergic rhinitis J30.2 Active 742102096 ALLERGIES No Information ENCOUNTERS Encounter Location Date Diagnosis [facility] [id number] [place] [address] 74788- 8281 Oct, [facility] [address] 23160- 5114 August, Fibromyalgia M79.7 [place] [address] 76592- 0838 August, [place] [address] 58813- 5722 August, [facility] [address] 83630- 8172 August, Abnormal chest CT R93.8 [place] [address] 61942- 6797 August, Generalized anxiety disorder F41.1 and Major depressive disorder, recurrent episode with anxious distress F33.9 [facility] [place] [id number] [place] [address] 53389- [address]136 August, Ab[address] chest [address] R93.8 [facility] [id number] [place] [address] 58701- 4427 Jul, [facility] [id number] [place] [address] 14821- 8243 Jul, Chronic kidney disease, stage 4 (severe) N18.4 [facility] [id number] [place] [address] 72070- 1691 Jul, [facility] [address] 87446- 4291 Jul, Restless leg G25.81 ; Mixed stress and urge urinary incontinence N39.46 and Fibromyalgia M79.7 [facility] [id number] [place] [address] 61709- 2450 Jul, Chronic kidney disease, stage 4 (severe) N18.4 [facility] [id number] [place] [address] 77881- 2747 Jun, Orthostatic hypotension I95.1 ; Chronic kidney disease, stage 4 (severe) N18.4 ; Chest wall discomfort R07.89 and Body mass index (BMI) of 40.0-44.9 in adult Z68.41 [place] [id number] [place] [address] 09838- 0896 Jun, [place] [id number] [place] [address] 38096- 5893 Jun, Orthostatic hypotension I95.1 [facility] [id number] [place] [address] 43437- 1843 Jun, [facility] [id number] [place] [address] 07130 -7820 Jun, Orthostatic hypotension I95.1 ; Dysuria R30.0 and Acute cystitis without hematuria N30.00 [facility] [id number] [place] [address] 39141- 9930 Jun, [facility] [id number] [place] [address] 90472- 0588 Jun, Chronic kidney disease, stage 4 (severe) N18.4 [facility] [id number] [place] [address] 06566- 4115 Jun, Fibromyalgia M79.7 [facility] [id number] [place] [address] 26759- 7370 Jun, [facility] [id number] [place] [address] 37101- 2598 Jun, [facility] [id number] [place] [address] 06834- [address]21 May, [address] R93.8 and Stage 3 chronic kidney disease N18.3 [facility] [id number] [place] [address] 92246- 7782 May, Chronic kidney disease, stage 4 (severe) N18.4 [facility] [id number] [place] [address] 87598- 4085 May, Chronic kidney disease, stage 4 (severe) N18.4 [facility] [id number] [place] [address] 65339- [address] May, [address] R93.8 [facility] [id number] [place] [address] 50733- 7346 May, [place] [id number] [place] [address] 33290- 5231 May, [facility] [id number] [place] [address] 83606- 1521 May, Generalized anxiety disorder F41.1 and Major depressive disorder, recurrent episode with anxious distress F33.9 [place] [id number] [place] [address] 55491- 5982 May, Mood disorder F39 [place] [id number] [place] [address] 80494- 2255 Apr, [facility] [id number] [place] [address] 54082- 6208 Apr, Infected skin lesion L08.9 and Muscle strain of right shoulder region, initial encounter S46.911A [place] [id number] [place] [address] 13967- 3947 Apr, Generalized anxiety disorder F41.1 and Major depressive disorder, recurrent episode with anxious distress F33.9 [facility] [place] [id number] [place] [address] 81795- 1191 Apr, [facility] [id number] [place] [address] 44660- 0083 Apr, Recent urinary tract infection Z87.440 and Hypothyroid E03.9 [facility] [id number] [place] [address] 28563- 8924 Apr, Generalized anxiety disorder F41.1 and Major depressive disorder, recurrent episode with anxious distress F33.9 [facility] [id number] [place] [address] 75449- 3892 Apr, Recent urinary tract infection Z87.440 [place] [id number] [place] [address] 19718- 8088 Mar, [facility] [id number] [place] [address] 74911 -3893 Mar, Dysuria R30.0 ; Acute cystitis without hematuria N30.00 and BMI 40.0-44.9, adult Z68.41 [place] [id number] [place] [address] 29860- 1893 14 Mar, 2017 [place] [id number] [place] [address] 61672- 2948 Mar, [place] [id number] [place] [address] 00469- 5491 07 Mar, 2017 Generalized anxiety disorder F41.1 and Major depressive disorder, recurrent episode with anxious distress F33.9 [facility] [id number] [place] [address] 28696- 2204 Feb, Conjunctivitis, bacterial H10.9 [facility] [id number] [place] [address] 15895- 3564 Feb, [facility] [id number] [place] [address] 02591 -5275 15 Feb, 2017 Conjunctivitis, bacterial H10.9 [facility] [id number] [place] [address] 98532- 4100 Feb, [facility] [id number] [place] [address] 02568 -9531 Feb, Dysuria R30.0 ; Acute cystitis N30.00 and BMI 40.0-44.9, adult Z68.41 [facility] [id number] [place] [address] 15371- 6882 Feb, [facility] [address] 12299- 4861 Feb, Generalized anxiety disorder F41.1 and Major depressive disorder, recurrent episode with anxious distress F33.9 [place] [address] 70646- 2687 Feb, Mood disorder F39 and BMI 40.0-44.9, adult Z68.41 [facility] [address] 02755- 8895 Jan, [facility] [address] 07082- 2965 Jan, [facility] [address] 92039- 5305 Jan, Hypothyroid E03.9 [facility] [id number] [place] [address] 30524- 7159 Jan, [facility] [id number] [place] [address] 53704- 1900 Jan, Chronic kidney disease, unspecified N18.9 ; Hypokalemia E87.6 ; Essential (primary) hypertension I10 ; Fibromyalgia M79.7 ; Coronary artery disease involving elim ira coronary artery of elim ira heart, angina presence unspecified I25.10 ; Hypothyroid E03.9 and Encounter for immunization Z23 [facility] [id number] [place] [address] 34820- 1611 04 Jan, 2017 Hypothyroid E03.9 [facility] [address] 81100- 1351 Jan, [facility] [address] [address]- 0794 28 Dec, 2016 Vitamin D deficiency E55.9 [facility] [id number] [place] [address] 86981- 2127 28 Dec, 2016 Primary osteoarthritis of left knee M17.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 [facility] [id number] [place] [address] 99473- 9390 19 Dec, 2016 Fibromyalgia M79.7 [facility] [id number] [place] [address] 59561- 2768 18 Dec, 2016 Mood disorder F39 [place] [id number] [place] [address] 40177- 3281 13 Dec, 2016 [place] [id number] [place] [address] 01045- 6802 13 Dec, 2016 Generalized anxiety disorder F41.1 and Major depressive disorder, recurrent episode with anxious distress F33.9 [facility] [id number] [place] [address] 95730- 7984 11 Dec, 2016 [place] [id number] [place] [address] 50998- 8613 08 Dec, 2016 Streptococcal meningitis G00.2 [facility] [id number] [place] [address] 45418- 5962 07 Dec, 2016 Streptococcal meningitis G00.2 [facility] [address] [address]- 1232 07 Dec, 2016 [facility] [id number] [place] [address] 51646- 0448 06 Dec, 2016 Streptococcal meningitis G00.2 [facility] [id number] [place] [address] 96002- 2967 Dec, [facility] [id number] [place] [address] 08442- 4275 Dec, Major depressive disorder, recurrent episode with anxious distress F33.9 [facility] [id number] [place] [address] 60284- 0807 Nov, Fever, unspecified fever cause R50.9 [facility] [id number] [place] [address] 61891- 0010 Nov, [facility] [id number] [place] [address] 06802- 8162 Nov, Hypothyroid E03.9 [facility] [id number] [place] [address] 46001- 4330 Nov, Generalized anxiety disorder F41.1 and Major depressive disorder, recurrent episode with anxious distress F33.9 [facility] [id number] [place] [address] 15246- 4072 Nov, [facility] [address] [id number] Oct, Dental examination Z01.20 [facility] [id number] [place] [address] 04049- 9195 Oct, Generalized anxiety disorder F41.1 and Major depressive disorder, recurrent episode with anxious distress F33.9 [facility] [id number] [place] [address] 55496- 0763 Oct, Chronic kidney disease, stage 4 (severe) N18.4 [facility] [id number] [place] [address] 00700- 9710 Oct, [facility] [id number] [place] [address] 72284- 1587 Oct, Fibromyalgia M79.7 [facility] [id number] [place] [address] 77476- 5131 Oct, [facility] [id number] [place] [address] 09710- 2584 Oct, Generalized anxiety disorder F41.1 ; Major depressive disorder, recurrent episode with anxious distress F33.9 and Bipolar disorder, current episode manic without psychotic features F31.10 [place] [address] [address]- 5858 Sep, [place] [id number] [place] [address] 44071- 3989 Sep, [place] [id number] [place] [address] 62376- 1558 15 Sep, 2016 Vitamin D deficiency E55.9 [place] [id number] [place] [address] 90312- 3094 14 Sep, 2016 Vitamin D deficiency E55.9 [place] [id number] [place] [address] 75337- 8129 Sep, [place] [id number] [place] [address] 14485- 6687 Sep, Chronic kidney disease, stage 4 (severe) N18.4 ; Hypothyroid E03.9 ; Restless leg G25.81 ; Fibromyalgia M79.7 ; Essential ( primary) hypertension I10 ; Vitamin D deficiency E55.9 ; Dyspepsia R10.13 ; Anemia in chronic kidney disease D63.1 ; Chronic kidney disease, unspecified N18.9 ; Coronary artery disease involving elim ira coronary artery of elim ira heart , angina presence unspecified I25.10 ; Screening breast examination Z12.39 and Low back pain M54.5 [place] [id number] [place] [address] 83642- 3136 August, Generalized anxiety disorder F41.1 and Major depressive disorder, recurrent episode with anxious distress F33.9 [place] [address] [address]- 2699 August, Generalized anxiety disorder F41.1 and Major depressive disorder, recurrent episode with anxious distress F33.9 [place] [id number] [place] [address] 52204- 2614 August, Fibromyalgia M79.7 [place] [id number] [place] [address] 38263- 9387 Jul, Generalized anxiety disorder F41.1 and Major depressive disorder, recurrent episode with anxious distress F33.9 [facility] [id number] [place] [address] 11672- 1672 Jul, Fibromyalgia M79.7 [place] [id number] [place] [address] 32436- 3749 Jul, Generalized anxiety disorder F41.1 [place] [id number] [place] [address] 43138- 9741 May, [place] [id number] [place] [address] 32801- 3964 May, Hypothyroid E03.9 [place] [id number] [place] [address] 45035- 0166 May, Chronic kidney disease, stage 4 (severe) N18.4 ; Hypothyroid E03.9 ; Restless leg G25.81 ; Fibromyalgia M79.7 ; Essential ( primary) hypertension I10 ; Vitamin D deficiency E55.9 ; Dyspepsia R10.13 ; Acute non-recurrent maxillary sinusitis J01.00 ; Anemia in chronic kidney disease D63.1 ; Chronic kidney disease, unspecified N18.9 and Coronary artery disease involving elim ira coronary artery of elim ira heart, angina presence unspecified I25.10 [place] [id number] [place] [address] 17631- 7642 May, Vitamin D deficiency, unspecified E55.9 [place] [id number] [place] [address] 84271- 2592 May, Generalized anxiety disorder F41.1 and Major depressive disorder, recurrent episode with anxious distress F33.9 [place] [id number] [place] [address] 83077- 6578 Apr, Pain in right knee M25.561 and Pain in left knee M25.562 [place] [id number] [place] [address] 51716- 5070 Apr, [facility] [address] [address]- 3803 Apr, [facility] [id number] [place] [address] 93080- 8970 Apr, [facility] [id number] [place] [address] 00529- 0964 Mar, Generalized anxiety disorder F41.1 and Major depressive disorder, recurrent episode with anxious distress F33.9 [facility] [id number] [place] [address] 75671- 5479 Mar, Generalized anxiety disorder F41.1 and Major depressive disorder, recurrent episode with anxious distress F33.9 [facility] [id number] [place] [address] 63753- 3543 Mar, [facility] [id number] [place] [address] 88754- 2451 Mar, [facility] [id number] [place] [address] 39556- 5662 Mar, [facility] [id number] [place] [address] 38505- 8357 Mar, Asthma J45.909 and Fibromyalgia M79.7 [facility] [id number] [place] [address] 08452- 1831 Mar, Chronic kidney disease, stage 4 (severe) N18.4 ; Vitamin D deficiency E55.9 and Essential (primary) hypertension I10 [facility] [id number] [place] [address] 83324- 0007 Feb, [facility] [id number] [place] [address] 43992- 0542 Feb, Dysuria R30.0 ; Mixed stress and urge urinary incontinence N39.46 ; Fibromyalgia M79.7 and Chronic kidney disease, stage IV (severe) N18.4 [facility] [id number] [place] [address] 42500- 6749 Feb, Chronic kidney disease, stage 4 (severe) N18.4 [facility] [id number] [place] [address] 82075- 3899 Feb, Chronic kidney disease, stage 4 (severe) N18.4 [facility] [id number] [place] [address] 42357- 6347 Feb, [facility] [id number] [place] [address] 34470- 0064 Feb, Vitamin D deficiency, unspecified E55.9 [facility] [id number] [place] [address] 30372- 2903 Jan, [facility] [id number] [place] [address] 40382- 7120 Jan, [facility] [id number] [place] [address] 29351- 8712 Dec, [facility] [id number] [place] [address] 65582- 9801 Dec, Chronic kidney disease, stage 4 (severe) N18.4 [facility] [id number] [place] [address] 14182- 3482 Dec, Dysthymic disorder F34.1 and Generalized anxiety disorder F41.1 [facility] [id number] [place] [address] 20393- 3797 Dec, [facility] [id number] [place] [address] 59140- 7165 Dec, [facility] [id number] [place] [address] 88407- 0765 08 Dec, 2015 Dysthymic disorder F34.1 and Generalized anxiety disorder F41.1 [facility] [id number] [place] [address] 58876- 1483 08 Dec, 2015 Dysuria R30.0 ; Chronic kidney disease, stage 4 (severe) N18.4 ; Hypertension I10 ; Dyspepsia R10.13 ; Yeast dermatitis B37.2 ; Palpitations R00.2 ; Hypothyroid E03.9 ; Functional diarrhea K59.1 and Other seasonal allergic rhinitis J30.2 [facility] [id number] [place] [address] 87688 -3369 Dec, [facility] [address] 49077 -3042 Nov, Dysuria R30.0 and Stress incontinence N39.3 [place] [address] 99637- 3943 Nov, [place] [address] 45746- 7554 Nov, [place] [address] 05258- 5130 Nov, Osteoarthritis of knees, bilateral M17.0 [place] [address] 13526- 6698 Nov, Dysthymic disorder F34.1 and Generalized anxiety disorder F41.1 [place] [address] 52411- 8779 Nov, [place] [id number] [place] [address] 50666- 6921 Nov, [place] [address] [address] Nov, Urgency of urination R39.15 [place] [address] [address] Nov, [place] [address] [address] Nov, Chronic kidney disease, stage 4 (severe) N18.4 [place] [address] [address] Oct, Hypertension I10 ; Coronary artery disease involving elim ira coronary artery of elim ira heart, angina presence unspecified I25.10 ; Palpitations R00.2 ; Hypothyroid E03.9 ; Right foot pain M79.671 ; Functional diarrhea K59.1 and Other seasonal allergic rhinitis J30.2 [place] [address] [place] [id number] [place] [address]- [address] Oct, Dysthymic disorder F34.1 and Generalized anxiety disorder F41.1 [place] [address] [address] Sep, [place] [address] [place] [id number] [place] [address]- [address] Sep, [place] [address] [place] [id number] [place] [address] [id number]- [address] Sep, [place] [address] [address] Sep, [place] [address] [place] [id number] [place] [address] 256[address]- [address] Sep, [place] [address] [place] [id number] [place] [address] 3[address]- [address] Sep, Dysthymic disorder F34.1 and Generalized anxiety disorder F41.1 [place] [address] [place] [id number] [place] [address]- [address] Sep, Asthma with acute exacerbation in adult J45.901 ; Dysuria R30.0 ; Chronic kidney disease, stage 4 (severe) N18.4 and History of anemia Z86.2 [place] [id number] [place] [address] 43754- 5981 Sep, Generalized anxiety disorder F41.1 and Dysthymic disorder F34.1 [place] [id number] [place] [address] 28835- 6520 August, Screening breast examination Z12.39 and Acute recurrent maxillary sinusitis J01.01 [place] [address] 48255- 8371 August, Osteoarthritis of knees, bilateral M17.0 [place] [id number] [place] [address] 27114- 6167 August, Chronic kidney disease, stage 4 (severe) N18.4 ; Acute non- recurrent maxillary sinusitis J01.00 ; Urinary problem R39.89 ; Bowel habit changes R19.4 ; Functional diarrhea K59.1 and History of colon polyps Z86.010 [place] [id number] [place] [address] 24523- 0535 Jul, Dysthymic disorder F34.1 and Generalized anxiety disorder F41.1 [place] [address] 89735- 8313 Jul, [facility] [id number] [place] [address] 79085- 6113 Jul, Dysthymic disorder F34.1 ; Generalized anxiety disorder F41.1 and 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 [place] [id number] [place] [address] 50942- 7171 Jul, [place] [id number] [place] [address] 10554- 0300 Jun, [facility] [id number] [place] [address] 96971- 9762 Jun, [place] [id number] [place] [address] 91697- 6319 May, [place] [id number] [place] [address] 27394- 4926 May, Dysthymic disorder F34.1 and Generalized anxiety disorder F41.1 [facility] [id number] [place] [address] 91459- 7408 Apr, Kidney disease N28.9 [place] [id number] [place] [address] 34388- 3593 Apr, Dysthymic disorder F34.1 and Generalized anxiety disorder F41.1 [place] [id number] [place] [address] 59017- 4169 Apr, Chronic kidney disease, stage 4 (severe) N18.4 [place] [id number] [place] [address] 88884- 0988 Apr, Generalized anxiety disorder F41.1 ; Major depression, recurrent F33.9 and Sleep disturbance G47.9 [place] [address] 54391- 4069 Mar, Generalized anxiety disorder F41.1 and Dysthymic disorder F34.1 [place] [address] 81716- 1196 Mar, Generalized anxiety disorder F41.1 ; Dysthymic disorder F34.1 and Insomnia G47.[address] 55176- 5317 Mar, [place] [address] 04414- 5790 Mar, [address] 60160- 8445 Mar, Osteoarthritis of knees, bilateral M17.[address] 17534- 0046 Mar, Hypertension I10 ; Hypothyroid E03.9 ; Dysthymic disorder F34.1 ; Chronic kidney disease, stage 4 (severe) N18.4 and Nausea & vomiting R11.2 [place] [id number] [place] [address] 28104- 2174 Mar, Generalized anxiety disorder F41.1 ; Dysthymic disorder F34.1 and Insomnia G47.00 [place] [id number] [place] [address] 03166- 4871 Mar, Dehydration E86.0 ; Chronic kidney disease, stage 4 (severe ) N18.4 and Nausea & vomiting R11.2 [facility] [id number] [address] Mar, Gastroenteritis K52.9 [facility] [id number] [place] [address] 41740- 7577 Mar, [facility] [id number] [place] [address] 67402- 0565 Mar, [facility] [address] 49620- 1847 Feb, Dysthymic disorder F34.1 and Generalized anxiety disorder F41.1 [place] [address] 70748- 0386 Jan, UTI (urinary tract infection) N39.0 ; Asthma J45.909 ; Coronary artery disease involving elim ira coronary artery of elim ira heart, angina presence unspecified I25.10 ; Hypertension I10 ; Hypothyroid E03.9 ; Vitamin D deficiency E55.9 ; Insomnia G47.00 ; Palpitations R00.2 ; Depressed F32.9 ; Restless leg G25.81 and Anxiety F41.9 [place] [id number] [place] [address] 73538- 2534 Jan, Dysthymic disorder F34.1 and Generalized anxiety disorder F41.1 [place] [id number] [place] [address] 41677- 6786 Jan, [place] [id number] [place] [address] 21871- 1641 Dec, [place] [id number] [place] [address] 67498- 5505 Dec, Alkalosis 276.3 ; Chronic kidney disease, 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.4 ; Hyperpotassemia 276.7 ; Secondary hyperparathyroidism, renal 588.81 ; Proteinuria 791.0 ; Unspecified vitamin D deficiency 268.9 ; Anemia in chronic kidney disease 285.21 ; Other and unspecified hyperlipidemia 272.4 ; Hypertension, essential, benign 401.1 and Chronic kidney disease (CKD), stage III (moderate) 585.3 [place] [address] [address]- 8117 Dec, [place] [id number] [place] [address] 70431- 2155 Dec, Depressive disorder, not elsewhere classified 311 and Generalized anxiety disorder 300.02 [place] [id number] [place] [address] 93466- 2431 Dec, [place] [id number] [place] [address] 51005- 6114 Dec, [place] [id number] [place] [address] 26437- 2722 Nov, Depressive disorder, not elsewhere classified 311 and Generalized anxiety disorder 300.02 [place] [id number] [place] [address] 24147- 1727 Nov, Arthritis of both knees 716.96 [place] [id number] [place] [address] 97844- 0520 Nov, PAF (paroxysmal atrial fibrillation) 427.31 ; CAD (coronary artery disease) 414.00 ; Chest pain 786.50 and Chronic kidney disease (CKD) stage G4/A1, severely decreased glomerular filtration rate (GFR) between 15-29 mL/min/1.73 square meter and albuminuria creatinine ratio less than 30 mg/g 585.4 [id number] [place] [address] 16350- 2981 Oct, Coronary atherosclerosis of unspecified type of vessel, elim ira or graft 414.00 ; Chronic kidney disease, 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.4 ; Hypertension 401.9 and Edema 782.3 [place] [id number] [place] [address] 43527- 9751 Oct, Depressive disorder, not elsewhere classified 311 and Generalized anxiety disorder 300.02 [id number] [place] [address] 45765- 1007 Oct, Depressive disorder, not elsewhere classified 311 and Generalized anxiety disorder 300.02 [facility] [id number] [place] [address] 83794- 6331 Oct, [facility] [id number] [place] [address] 05275- 2644 Oct, [facility] [id number] [place] [address] 95077- 1015 Sep, [facility] [address] 01869- 3997 Sep, Chronic kidney disease, 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.4 [facility] [address] 83751- 8527 Sep, [facility] [id number] [place] [address] 88921- 0588 Sep, Coronary atherosclerosis of unspecified type of vessel, elim ira or graft 414.00 ; Hypertension 401.9 ; Edema 782.3 and Hypothyroidism 244.9 [facility] [id number] [place] [address] 25317- 3400 Sep, Coronary atherosclerosis of unspecified type of vessel, elim ira or graft 414.00 ; Hypertension 401.9 ; Fibromyalgia 729.1 ; Edema 782.3 ; Hypothyroidism 244.9 and Anemia 285.9 [facility] [id number] [place] [address] 03479- 0137 Sep, Anxiety disorder, unspecified 300.00 and Depressive disorder , not elsewhere classified 311 [facility] [id number] [place] [address] 83089- 9590 Sep, [facility] [id number] [place] [address] 55576- 7756 August, Generalized anxiety disorder 300.02 [facility] [id number] [place] [address] 76961- 2012 August, Closed fracture of lateral malleolus 824.2 [facility] [id number] [place] [address] 99377- 8503 14 Jul, 2014 [facility] [place] [facility] [address] [id number] [place] [address]- 6694 Jul, [facility] [place] [facility] [address] [id number] [place] [address]- 8816 Jun, [facility] [place] [facility] [address] [facility] [id number] [place] [address]- 6049 Jun, [facility] [place] [facility] [address] [id number] [place] [address]- 0673 Jun, [facility] [place] [facility] [address] [id number] [place] [address]- 5748 Jun, [facility] [place] [facility] [address] [facility] [id number] [place] [address]- 8396 Jun, [facility] [place] [facility] [address] [facility] [id number] [place] [address]- 5161 Jun, [facility] [place] [facility] [address] [facility] [id number] [address]- 7621 May, [facility] [place] [facility] [address] [facility] [id number] [place] [address]- 1709 May, 2014 [facility] [place] [facility] [address] [facility] [id number] [address]- 9291 18 May, 2014 [facility] [place] [facility] [address] [facility] [id number] [address]- 8177 18 May, 2014 [facility] [place] [facility] [address] [facility] [id number] [address]- 5490 16 May, 2014 [facility] [place] [facility] [address] [facility] [id number] [place] [address]- 7563 16 May, 2014 [facility] [place] [facility] [address] [facility] [id number] [address]- 3773 13 May, 2014 [facility] [place] [facility] [address] [facility] [id number] 8388 13 May, 2014 [facility] [place] [facility] [address] [id number] [place] [address]- 4263 May, 2014 [facility] [place] [facility] [address] [id number] [place] [address]- 5736 May, [facility] [place] [facility] [address] [id number] [place] [address]- 1447 Apr, [facility] [place] [facility] [address] [id number] [place] [address]- 4731 Apr, [facility] [place] [facility] [address] [id number] [place] [address]- 2047 Mar, [facility] [place] [facility] [address] [id number] [place] [address]- 0816 Mar, [facility] [place] [facility] [address] [id number] [place] [address]- 0956 Mar, [facility] [place] [facility] [address] [id number] [place] [address]- 6432 Mar, [facility] [place] [facility] [address] [id number] [place] [address]- 6872 Mar, [facility] [place] [facility] [address] [id number] [place] [address]- 3514 Mar, [facility] [place] [facility] [address] [id number] [place] [address]- 7309 Mar, [facility] [place] [facility] [address] [id number] [place] [address]- 4277 Feb, [facility] [place] [facility] [address] [id number] [place] [address]- 5465 Feb, [facility] [place] [facility] [address] [id number] [place] [address]- 1338 Feb, [facility] [place] [facility] [address] [id number] [place] 2284 Jan, [facility] [place] [facility] [address] [id number] [place] [address]- 9167 Jan, [facility] [place] [facility] [address] [id number] [place] [address]- 5517 Jan, [facility] [place] [facility] [address] [id number] [place] [address]- 8630 Jan, [facility] [place] [facility] [address] [id number] [place] [address]- 0148 Jan, [facility] [place] [facility] [address] [id number] [place] [address]- 2201 Jan, [facility] [place] [facility] [address] [id number] [place] [address]- 3935 Jan, [facility] [place] [facility] [address] [id number] [place] [address]- 9253 Jan, [facility] [place] [facility] [address] [id number] [place] [address]- 7632 Jan, [facility] [place] [facility] [address] [id number] [place] [address]- 7755 Jan, [facility] [place] [facility] [address] [id number] [place] [address]- 4643 Nov, [facility] [place] [facility] [address] [id number] [place] [address]- 6365 Nov, [facility] [place] [facility] [address] [id number] [place] [address]- 8417 Nov, [facility] [place] [facility] [address] [id number] [place] [address]- 2526 Oct, [facility] [place] [facility] [address] [id number] [place] [address]- 5503 Oct, [facility] [place] [facility] [address] [id number] [place] 9406 Oct, [facility] [place] [facility] [address] [id number] [place] [address]- 5215 Oct, [facility] [place] [facility] [address] [id number] [place] [address]- 5594 Oct, [facility] [place] [facility] [address] [id number] [place] [address]- 0965 Oct, [facility] [place] [facility] [address] [id number] [place] [address]- 0484 Oct, [facility] [place] [facility] [address] [id number] [place] [address]- 1810 Oct, [facility] [place] [facility] [address] [id number] [place] [address]- 9555 Oct, [facility] [place] [facility] [address] [id number] [place] [address]- 0369 Sep, [facility] [place] [facility] [address] [id number] [place] [address]- 1624 Sep, [facility] [place] [facility] [address] [id number] [place] [address]- 7232 Sep, [facility] [place] [facility] [address] [id number] [place] [address]- 4320 Sep, [facility] [place] [facility] [address] [id number] [place] [address]- 6919 Sep, [facility] [place] [facility] [address] [id number] [place] [address]- 6644 Sep, [facility] [place] [facility] [address] [id number] [place] [address]- 6762 Sep, [facility] [place] [facility] [address] [id number] [place] [address]- 9520 Sep, [facility] [place] [facility] [address] [id number] [place] [address]- 6017 Sep, [facility] [place] [facility] [address] [id number] [place] [address]- 9467 August, [facility] [place] [facility] [address] [id number] [place] [address]- 7553 August, [facility] [place] [facility] [address] [id number] [place] [address]- 1458 August, [facility] [place] [facility] [address] [id number] [place] [address]- 0891 August, [facility] [place] [facility] [address] [id number] [place] [address]- 4747 August, [facility] [place] [facility] [address] [id number] [place] [address]- 4094 August, [facility] [place] [facility] [address] [id number] [place] [address]- 8999 Jul, [facility] [place] [facility] [address] [id number] [place] [address]- 1838 Jul, [facility] [place] [facility] [address] [id number] [place] [address]- 2646 Jul, [facility] [place] [facility] [address] [id number] [place] [address]- 1312 Jul, [facility] [place] [facility] [address] [id number] [place] [address]- 9905 Jul, [facility] [place] [facility] [address] [id number] [place] [address]- 6337 Jul, [facility] [place] [facility] [address] [id number] [place] [address]- 7563 Jun, [facility] [place] [facility] [address] [id number] [place] [address]- 0361 Jun, [facility] [place] [facility] [address] [id number] [place] [address]- 1496 May, [facility] [place] [facility] [address] [id number] [place] [address]- 8539 May, [facility] [place] [facility] [address] [id number] [place] [address]- 8524 May, [facility] [place] [facility] [address] [id number] [place] [address]- 8439 10 May, 2013 [facility] [address] [id number] [place] [address]- 3940 Apr, [facility] [place] [facility] [address] [id number] [place] [address]- 5977 Apr, [facility] [address] [id number] [place] [address]- 4997 18 Mar, 2013 [facility] [place] [facility] [address] [id number] [place] [address]- 2526 18 Mar, 2013 [facility] [address] [id number] [place] [address]- 2860 Mar, [facility] [place] [facility] [address] [id number] [place] [address]- 5384 Mar, [facility] [address] [facility] [id number] [place] [address]- 7632 Mar, [facility] [address] [id number] [place] [address]- 0587 Mar, [facility] [place] [facility] [address] [id number] [place] [address]- 6584 Feb, [facility] [address] [facility] [id number] [place] [address]- 9280 Feb, [facility] [place] [facility] [address] [id number] [place] [address]- 9662 14 Feb, 2013 [facility] [place] [facility] [address] [id number] [place] [address]- 9634 14 Feb, 2013 [facility] [place] [facility] [address] [id number] [place] 7961 05 Feb, 2013 [facility] [place] [facility] [address] [facility] [id number] [place] [address]- 3399 05 Feb, 2013 [facility] [place] [facility] [address] [id number] [place] [address]- 7616 Jan, [facility] [place] [facility] [address] [id number] [place] [address]- 9907 Jan, [facility] [place] [facility] [address] [id number] [place] [address]- 1448 Jan, [facility] [place] [facility] [address] [id number] [place] [address]- 0266 Jan, [facility] [place] [facility] [address] [id number] [place] [address]- 0866 Jan, [facility] [place] [facility] [address] [id number] [place] [address]- 0719 Jan, [facility] [place] [facility] [address] [id number] [place] [address]- 9586 Dec, [facility] [place] [facility] [address] [id number] [place] [address]- 7300 Dec, [facility] [place] [facility] [address] [id number] [place] [address]- 7214 Nov, [facility] [place] [facility] [address] [id number] [place] [address]- 2598 Nov, [facility] [place] [facility] [address] [id number] [place] [address]- 0620 Oct, [facility] [place] [facility] [address] [id number] [place] [address]- 7339 Oct, [facility] [place] [facility] [address] [id number] [place] [address]- 5475 Oct, [facility] [place] [facility] [address] [id number] [place] [address]- 7802 Oct, [facility] [place] [facility] [address] [id number] [place] [address]- 9579 Oct, [facility] [place] [facility] [address] [id number] [place] [address]- 2542 Oct, [facility] [place] [facility] [address] [id number] [place] [address]- 5805 Sep, [facility] [address] [id number] [place] [address]- 4335 Sep, [facility] [place] [facility] [address] [id number] [place] [address]- 5522 Sep, [facility] [address] [id number] [place] [address]- 7402 Sep, [facility] [place] [facility] [address] [id number] [place] [address]- 4920 August, [facility] [address] [id number] [place] [address]- 3873 August, [facility] [address] [id number] [place] [address]- 4669 August, [facility] [address] [id number] [place] [address]- 2298 August, [facility] [address] [id number] [place] [address]- 2788 August, [facility] [address] [id number] [place] [address]- 0789 Jul, [facility] [place] [facility] [address] [id number] [place] [address] Jul, [facility] [address] [id number] [place] [address] Jul, [facility] [place] [facility] [address] [id number] [place] [address] Jul, [facility] [place] [facility] [address] [id number] [place] [address] Jul, [facility] [place] [facility] [address] [id number] [place] [address] Jul, [facility] [place] [facility] [address] [id number] [place] [address] Jul, [facility] [place] [facility] [address] [id number] [place] [address] Jul, [facility] [address] [facility] [id number] [place] [address] Jul, [facility] [address] [facility] [id number] [place] [address] Jul, [facility] [address] [facility] [id number] [id number] Jun, [facility] [address] [facility] [id number] [place] [address] Jun, [facility] [address] [facility] [id number] [place] [address] Jun, [facility] [address] [facility] [id number] [place] [address] Jun, [facility] [address] [id number] [address] Jun, [facility] [address] [id number] [address] May, [facility] [address] [id number] [address] May, [facility] [address] [facility] [id number], [place] [address] May, [facility] [address] [facility] [id number] [place] [address] Apr, [facility] [address] [facility] [id number] [place] [address] Apr, [facility] [address] [facility] [id number] [place] [address] Apr, [facility] [address] [facility] [id number] [place] [address] Apr, [facility] [address] [facility] [id number], [place] [address] Apr, [facility] [place] [facility] [address] [id number] [place] [address] Apr, [facility] [place] [facility] [address] [id number] [place] [address] Mar, [facility] [place] [facility] [address] [id number] [place] [address] Mar, [facility] [place] [facility] [address] [id number] [place] [address] Mar, [facility] [place] [facility] [address] [id number] [place] [address] Mar, [facility] [place] [facility] [address] [id number] [place] [address] Feb, [facility] [place] [facility] [address] [id number] [place] [address] Feb, [facility] [place] [facility] [address] [id number] [place] [address] Feb, [facility] [place] [facility] [address] [id number] [place] [address] Feb, [facility] [place] [facility] [address] [id number], [place] [address] Feb, [facility] [place] [facility] [address] [facility] [id number], [place] [address] Feb, [facility] [place] [facility] [address] [id number], [place] [address] Feb, [facility] [place] [facility] [address] [id number], [place] [address] Feb, [facility] [place] [facility] [address] [id number], [place] [address] Feb, [facility] [place] [facility] [address] [facility] [id number], [place] [address] Feb, [facility] [place] [facility] [address] [id number], [place] [address] Feb, [facility] [place] [facility] [address] [id number] [place] [address] Feb, [facility] [place] [facility] [address] [id number], [place] [address] Feb, [facility] [place] [facility] [address] [facility] [id number] [place] [address] Feb, [facility] [place] [facility] [address] [id number] [place] [address] Feb, [facility] [place] [facility] [address] [facility] [id number] [place] [address] Feb, [facility] [place] [facility] [address] [facility] [id number] [place] [address] Jan, [facility] [place] [facility] [address] [facility] [id number], [place] [address] Jan, [facility] [place] [facility] [address] [facility] [id number], [place] [address] 31 Jan, 2012 [facility] [place] [facility] [address] [facility] [id number], [place] [address] 31 Jan, 2012 [facility] [place] [facility] [address] [facility] [id number], [place] [address] 30 Jan, 2012 [facility] [place] [facility] [address] [facility] [id number] [address] Jan, [facility] [place] [facility] [address] [facility] [id number][place] [address] 25 Jan, 2012 [facility] [place] [facility] [address] [facility] [id number], [place] [address] 16 Jan, 2012 [facility] [place] [facility] [address] [facility] [id number], [place] [address] 16 Jan, 2012 [facility] [place] [facility] [address] [facility] [id number], [place] [address] 15 Jan, 2012 [facility] [place] [facility] [address] [id number] [place] [address] 15 Jan, 2012 [facility] [place] [facility] [address] [id number] [place] [address] 01 Jan, 2012 [facility] [place] [facility] [address] [id number] [place] [address] 2546 26 Dec, 2011 [facility] [place] [facility] [address] [id number] [place] [address] 2546 26 Dec, 2011 [facility] [place] [facility] [address] [id number] [place] [address] 2549 24 Dec, 2011 [facility] [place] [facility] [address] [id number] [place] [address]86 23 Dec, 2011 [facility] [place] [facility] [address] [id number] [place] [address]- 1021 22 Dec, 2011 [facility] [place] [facility] [address] [id number] [place] [address] 30[address] 21 Dec, 2011 [facility] [place] [facility] [address] [id number] [place] [address] 2549 20 Dec, 2011 [facility] [place] [facility] [address] [id number] [place] [address] 2543 20 Dec, 2011 [facility] [place] [facility] [address] [id number] [place] [address] 07 Dec, 2011 [facility] [place] [facility] [address] [id number] [place] [address] 2546 06 Sep, 2011 [facility] [place] [facility] [address] [id number] [place] [address] 2546 06 Sep, 2011 [facility] [place] [facility] [address] [id number] [place] [address] 2546 05 Dec, 2011 [facility] [place] [facility] [address] [id number] [place] [address]- [address]46 23 Nov, 2011 [facility] [place] [facility] [address] [id number] [place] [address]- [address]201 Nov, [facility] [place] [facility] [address] [id number] [place] [address] Nov, [facility] [place] [facility] [address] [id number] [place] [address] 9062 Nov, [facility] [place] [facility] [address] [id number] [place] [address]- 9520 Nov, [facility] [place] [facility] [address] [id number] [place] [address]- 6664 Nov, [facility] [place] [facility] [address] [id number] [place] [address]- [address]75 Nov, [facility] [place] [facility] [address] [id number] [place] [address]- 1164 Nov, [facility] [place] [facility] [address] [id number] [place] [address] 6493 Oct, [facility] [place] [facility] [address] [id number] [place] [address]80 Oct, [facility] [place] [facility] [address] [id number] [place] [address]- 1036 Oct, [facility] [place] [facility] [address] [id number] [place] [address] Oct, [facility] [place] [facility] [address] [id number] [place] [address] 9776 Oct, [facility] [place] [facility] [address] [id number] [place] [address]- 0590 Oct, [facility] [place] [facility] [address] [id number] [place] [address]- 6044 Oct, [facility] [place] [facility] [address] [id number] [place] [address]- 5961 Sep, [facility] [place] [facility] [address] [id number] [place] [address]- 3061 Sep, [facility] [place] [facility] [address] [id number] [place] [address] 130[address] August, [facility] [address] [id number] [place] [address] 3826 August, [facility] [place] [facility] [address] [id number] [place] [address] 6566 August, [facility] [address] [id number] [place] [address]- 75[address] August, [facility] [place] [facility] [address] [id number] [place] [address] 5839 Jul, [facility] [address] [id number] [place] [address]- 2265 Jul, [facility] [place] [facility] [address] [id number] [place] [address]- 8999 Jul, [facility] [address] [id number] [place] [address] 479[address] Jul, [facility] [place] [facility] [address] [id number] [place] [address]- 1109 Jul, [facility] [place] [facility] [address] [id number] [place] [address]- 7471 Jul, [facility] [place] [facility] [address] [id number] [place] [address]- 50[address] Jul, [facility] [place] [facility] [address] [id number] [place] [address]- 9698 Jul, [facility] [place] [facility] [address] [id number] [place] [address]- 1481 Jul, [facility] [place] [facility] [address] [id number] [place] [address]- 9601 Jun, [facility] [place] [facility] [address] [id number] [place] [address]- 0548 Jun, [facility] [place] [facility] [address] [id number] [place] [address]- 1264 Jun, [facility] [place] [facility] [address] [id number] [place] [address]- 5498 14 Jun, 2011 [facility] [place] [facility] [address] [id number] [place] [address]- 7082 Jun, [facility] [place] [facility] [address] [id number] [place] [address]- 6130 Jun, [facility] [place] [facility] [address] [id number] [place] [address]- 0136 Jun, [facility] [place] [facility] [address] [id number] [place] [address]- 0869 May, [facility] [place] [facility] [address] [id number] [place] [address]- 1461 24 May, 2011 [facility] [place] [facility] [address] [id number] [place] [address]- 8940 May, [facility] [place] [facility] [address] [id number] [place] [address]- 4308 May, [facility] [place] [facility] [address] [id number] [place] [address]- 5599 May, [facility] [place] [facility] [address] [id number] [place] [address]- 0699 Apr, [facility] [place] [facility] [address] [id number] [place] [address]- 4624 Apr, [facility] [place] [facility] [address] [id number] [place] [address]- 8548 Apr, [facility] [place] [facility] [address] [id number] [place] [address]- 8510 Apr, [facility] [place] [facility] [address] [id number] [place] [address]- 9243 Apr, [facility] [place] [facility] [address] [id number] [place] [address]- 0636 Mar, [facility] [place] [facility] [address] [id number], [place] [address]- 3[address] Mar, [facility] [place] [facility] [address] [id number] [place] [address]- 9594 Mar, [facility] [place] [facility] [address] [id number] [place] [address]229 Mar, [facility] [place] [facility] [address] [facility] [id number] [place] [address]- 6497 Mar, [facility] [place] [facility] [address] [id number] [place] [address]- 0042 Mar, [facility] [place] [facility] [address] [id number] [place] [address]- 6996 Mar, [facility] [place] [facility] [address] [id number] [place] [address]- 3552 Feb, [facility] [place] [facility] [address] [facility] [id number], [place] [address]- 3489 Feb, [facility] [place] [facility] [address] [id number] [place] [address]- 3497 Feb, [facility] [place] [facility] [address] [facility] [id number] [place] [address]- 5351 Feb, [facility] [place] [facility] [address] [facility] [id number] [place] [address]- 5390 Jan, [facility] [place] [facility] [address] [id number], [place] [address] 5098 Jan, [facility] [place] [facility] [address] [id number], [place] [address]- 1215 Jan, [facility] [place] [facility] [address] [id number] [place] [address]- 2348 Jan, [facility] [place] [facility] [address] [facility] [id number], [place] [address]- 3678 Nov, [facility] [place] [facility] [address] [facility] [id number] [place] [address]- 9581 30 Mar, 2010 [facility] [place] [facility] [address] [id number] [address] [address] Mar, [facility] [id number] [address] Mar, [facility] [address] [facility] [id number], [place] [address]- 2546 Mar, [facility] [address] [facility] [id number], [place] [address] 2546 Mar, [facility] [address] [facility] [id number], [place] [address]- 1075 Mar, [facility] [id number], [place] [address] 3897 Feb, [facility] [id number] [address] Feb, [facility] [id number] [address] [address] Jan, [facility] [address] [id number], [place] [address]- 8161 Jan, [facility] [id number], [place] [address]- 5[address] Jan, IMMUNIZATIONS No Known Immunizations SOCIAL HISTORY Never Assessed REASON FOR VISIT Triage- [facility] to [facility] [address] [facility]/t pt being asleep in her car with heater on for approx 4 hours. pt is confused and sweaty. Vitals WNL- pt states she had meningitis in Dec and since then has periods of confussion and sleepyness - Got pt some Ice Water and got in contact witih her fiance who is on his way to get pt as This RN is not comfortable letting pt drive- Valdemar Townsend PLAN OF CARE VITAL SIGNS Height 63 in 2017-03-22 Temperature 98.3 degrees Fahrenheit 2017-03-22 Heart Rate 64 bpm 2017-03-22 Oximetry 96 % 2017-03-22 Blood pressure systolic 102 mmHg 2017-03-22 Blood pressure diastolic 68 mmHg 2017-03-22 MEDICATIONS Unknown Medications RESULTS No Results PROCEDURES Procedure Date Ordered Result Body Site MEASURE BLOOD OXYGEN LEVEL Mar 22, 2017 INSTRUCTIONS MEDICATIONS ADMINISTERED No Known Medications [...] 2020 & 2007 Surgical History Bladder surgery [facility] 03/2016 Hospitalization History Surgeries Only Hospitalization History 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
--- OUTSIDE RECORDS SUMMARY | 2018-05-29 08:19 | XMS REPORT ---
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 Name Role Phone KEIRA FORD Unavailable PROBLEMS Type Condition ICD9-CM Code [id number] Code Onset Dates Condition Status SNOMED Code Problem Long-term use of high-risk medication Z79.899 Active 194809454 Problem Abnormal chest CT R93.8 Active 875247607 Problem Generalized anxiety disorder F41.1 Active 46292430 Problem Low back pain M54.5 Active 248555620 Problem Dysthymic disorder F34.1 Active 78258263 Problem Depressed F32.9 Active 39830651 Problem Coronary artery disease involving [place] coronary artery of [place] heart, angina presence unspecified I25.10 Active 4912346423910 Problem Hypothyroid E03.9 Active 96865242 Problem Insomnia G47.00 Active 350456516 Problem Vitamin D deficiency E55.9 Active 90476621 Problem Asthma J45.909 Active 338987584 Problem Chronic kidney disease, unspecified N18.9 Active 160917241 Problem Palpitations R00.2 Active 74144461 Problem Anemia in chronic kidney disease D63.1 Active 336895935059251 Problem Primary osteoarthritis of left knee M17.12 Active 670949097 Problem Bipolar disorder, current episode manic without psychotic features F31.10 Active 075915977 Problem Restless leg syndrome G25.81 Active 49490772 Problem Seasonal allergic rhinitis due to pollen J30.1 Active 33248186 Problem Functional diarrhea 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 Active 69392828 Problem Chronic kidney disease, stage 4 (severe) N18.4 Active 882538364 Problem Restless leg G25.81 Active 38745187 Problem Mood disorder F39 Active 18261020 Problem Degenerative tear of medial meniscus of left knee M23.204 Active 998843378 Problem Body mass index (BMI) of 40.0-44.9 in adult Z68.41 Active 032426292 Problem Stage 3 chronic kidney disease N18.3 Active 134368443 Problem Asthma with acute exacerbation in adult J45.901 Active 522973208 Problem Other seasonal allergic rhinitis J30.2 Active 285120100 Problem History of colon polyps Z86.010 Active 107662371 Problem History of anemia Z86.2 Active 644133750 Problem Fibromyalgia M79.7 Active 609831815 Problem Essential (primary) hypertension I10 Active 18541790 Problem Hypokalemia E87.6 Active 89124525 Problem Mixed stress and urge urinary incontinence N39.46 Active 381779595 ALLERGIES No Information ENCOUNTERS Encounter Location Date Diagnosis [place] [address] 80347- 3209 Oct, [place] [address] 98601- 3337 Oct, [place] [address] 31104- 4122 Sep, Restless leg syndrome G25.81 and Restless leg G25.81 [place] [address] 08581- 3476 Sep, [place] [address] 72519- 3891 Sep, Seasonal allergic rhinitis due to pollen J30.1 ; Screening for breast cancer Z12.31 ; Chest pain at rest R07.9 ; Restless leg syndrome G25.81 ; Essential (primary) hypertension I10 and Depressed F32.9 [place] [address] [place] [id number] [place] [address] 06435- 4902 August, Fibromyalgia M79.7 [place] [address] 80508- 0559 August, [place] [address] 11058- 8768 August, [place] [id number] 78954- [address] August, [address] chest [address] R93.8 [place] [id number] [place] [address] 64177- 4715 August, Generalized anxiety disorder F41.1 and Major depressive disorder, recurrent episode with anxious distress F33.9 [facility] [address] [place] [id number] [place] [address] 12144- [address] August, Ab[address] R93.8 [facility] [address] [place] [id number] [place] [address] 97482- 5751 Jul, [place] [address] [place] [id number] [place] [address] 47824- 6734 Jul, Chronic kidney disease, stage 4 (severe) N18.4 [place] [address] [place] [id number] [place] [address] 87406- 6135 Jul, [place] [address] [place] [id number] [place] [address] 86879- 4365 Jul, Restless leg G25.81 ; Mixed stress and urge urinary incontinence N39.46 and Fibromyalgia M79.7 [place] [address] [place] [id number] [place] [address] 03083- 6608 Jul, Chronic kidney disease, stage 4 (severe) N18.4 [facility] [address] [place] [id number] [place] [address] 70133- 3359 Jun, Orthostatic hypotension I95.1 ; Chronic kidney disease, stage 4 (severe) N18.4 ; Chest wall discomfort R07.89 and Body mass index (BMI) of 40.0-44.9 in adult Z68.41 [place] [address] [address] Jun, [place] [address] [place] [id number] [place] [address] 57688- 8946 Jun, Orthostatic hypotension I95.1 [place] [address] [place] [id number] [address] 3[address] Jun, [facility] [address] [place] [id number] [place] [address] 87126 -4691 Jun, Orthostatic hypotension I95.1 ; Dysuria R30.0 and Acute cystitis without hematuria N30.00 [facility] [address] [place] [id number] [place] [address] 67388- 7397 Jun, [facility] [address] [place] [id number] [place] [address] 72288- 0598 Jun, Chronic kidney disease, stage 4 (severe) N18.4 [facility] [address] [place] [id number] [place] [address] 31257- 8087 Jun, Fibromyalgia M79.7 [facility] [address] 70335- 2176 Jun, [facility] [address] [place] [id number] [place] [address] 75513- 0436 Jun, [facility] [address] [place] [id number] [place] [address] 99260- [address] May, [address] R93.8 and Stage 3 chronic kidney disease N18.3 [facility] [address] [place] [id number] [place] [address] 29428- 7271 May, Chronic kidney disease, stage 4 (severe) N18.4 [facility] [address] [place] [id number] [place] [address] 16262- 0791 May, Chronic kidney disease, stage 4 (severe) N18.4 [facility] [address] [place] [id number] [place] [address] 56683- [address] May, [address] R93.8 [facility] [address] [place] [id number] [place] [address] 60499- 7936 May, [facility] [address] [place] [id number] [place] [address] 72666- 7261 May, [facility] [address] [place] [id number] [place] [address] 61258- 9149 May, Generalized anxiety disorder F41.1 and Major depressive disorder, recurrent episode with anxious distress F33.9 [facility] [id number] [place] [address] 54363- 1633 May, Mood disorder F39 [facility] [id number] [place] [address] 84326- 9413 Apr, [facility] [address] [place] [id number] [place] [address] 65606- 7992 Apr, Infected skin lesion L08.9 and Muscle strain of right shoulder region, initial encounter S46.911A [place] [address] [place] [id number] [place] [address] 31602- 4062 Apr, Generalized anxiety disorder F41.1 and Major depressive disorder, recurrent episode with anxious distress F33.9 [place] [address] [place] [id number] [place] [address] 04415- 0477 Apr, [facility] [address] [place] [id number] [place] [address] 26095- 0501 Apr, Recent urinary tract infection Z87.440 and Hypothyroid E03.9 [place] [address] [place] [id number] [place] [address] 58259- 1505 Apr, Generalized anxiety disorder F41.1 and Major depressive disorder, recurrent episode with anxious distress F33.9 [place] [id number] [place] [address] 04960- 6772 Apr, Recent urinary tract infection Z87.440 [facility] [id number] [place] [address] 62241- 6142 Mar, [facility] [address] [place] [id number] [place] [address] 10769 -2261 Mar, Dysuria R30.0 ; Acute cystitis without hematuria N30.00 and BMI 40.0-44.9, adult Z68.41 [place] [address] [place] [address] 98110- 9417 Mar, [place] [address] [place] [id number] [place] [address] 58486- 8797 Mar, [place] [address] 19677- 8509 Mar, Generalized anxiety disorder F41.1 and Major depressive disorder, recurrent episode with anxious distress F33.9 [place] [address] 15616- 6636 Feb, Conjunctivitis, bacterial H10.9 [place] [address] 40071- 1517 Feb, [facility] [place] [address] 06869 -0770 Feb, Conjunctivitis, bacterial H10.9 [place] [address] 64330- 9328 Feb, [facility] [place] [address] [place] [id number] [place] [address] 30154 -2068 Feb, Dysuria R30.0 ; Acute cystitis N30.00 and BMI 40.0-44.9, adult Z68.41 [place] [address] [place] [id number] [place] [address] 84812- 6386 Feb, [place] [address] [place] [id number] [place] [address] 01134- 6839 Feb, Generalized anxiety disorder F41.1 and Major depressive disorder, recurrent episode with anxious distress F33.9 [place] [address] [place] [id number] [place] [address] 17344- 8796 Feb, Mood disorder F39 and BMI 40.0-44.9, adult Z68.41 [place] [address] [place] [id number] [place] [address] 74950- 5602 Jan, [place] [address] [place] [id number] [place] [address] 88706- 8850 Jan, [place] [address] [place] [id number] [place] [address] 68928- 9700 Jan, Hypothyroid E03.9 [place] [address] 87629- 8828 Jan, [place] [address] [place] [id number] [place] [address] 47191- 0355 Jan, Chronic kidney disease, unspecified N18.9 ; Hypokalemia E87.6 ; Essential (primary) hypertension I10 ; Fibromyalgia M79.7 ; Coronary artery disease involving [place] coronary artery of [place] heart, angina presence unspecified I25.10 ; Hypothyroid E03.9 and Encounter for immunization Z23 [place] [address] 22775- 6407 Jan, Hypothyroid E03.9 [place] [address] 80615- 8973 Jan, [place] [address] 42667- 1607 Dec, Vitamin D deficiency E55.9 [place] [address] 51811- 5720 Dec, Primary osteoarthritis of left knee M17.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 [place] [address] [place] [id number] [place] [address] 97205- 1410 19 Dec, 2016 Fibromyalgia M79.7 [place] [address] 66626- 3369 18 Dec, 2016 Mood disorder F39 [place] [address] 65414- 9342 13 Dec, 2016 [place] [address] 67129- 4814 Dec, Generalized anxiety disorder F41.1 and Major depressive disorder, recurrent episode with anxious distress F33.9 [place] [address] 14171- 4791 11 Dec, 2016 [facility] [address] [address]- 6698 08 Dec, 2016 Streptococcal meningitis G00.2 [facility] [id number] [address]- 1485 07 Dec, 2016 Streptococcal meningitis G00.2 [facility] [id number] [place] [address] 12108- 6994 07 Dec, 2016 [facility] [id number] [place] [address] 70415- 3170 06 Dec, 2016 Streptococcal meningitis G00.2 [facility] [id number] [place] [address] 93615- 6048 Dec, 2016 [facility] [id number] [place] [address] 69938- 7871 Dec, Major depressive disorder, recurrent episode with anxious distress F33.9 [facility] [id number] [place] [address] 97103- 2684 Nov, Fever, unspecified fever cause R50.9 [facility] [id number] [place] [address] 37892- 4088 24 Nov, 2016 [facility] [id number] [place] [address] 50439- 2401 Nov, Hypothyroid E03.9 [facility] [id number] [place] [address] 29118- 0068 Nov, Generalized anxiety disorder F41.1 and Major depressive disorder, recurrent episode with anxious distress F33.9 [facility] [id number] [place] [address] 05420- 3019 Nov, [facility] [id number] [id number] Oct, Dental examination Z01.20 [facility] [id number] [place] [address] 96403- 9892 Oct, Generalized anxiety disorder F41.1 and Major depressive disorder, recurrent episode with anxious distress F33.9 [place] [id number] [place] [address] 56564- 9566 Oct, Chronic kidney disease, stage 4 (severe) N18.4 [place] [address] [place] [id number] [place] [address] 28084- 3668 Oct, [place] [address] [place] [id number] [place] [address] 85500- 9214 Oct, Fibromyalgia M79.7 [place] [address] [place] [id number] [place] [address] 46912- 8637 Oct, [place] [address] [place] [id number] [place] [address] 59248- 3343 Oct, Generalized anxiety disorder F41.1 ; Major depressive disorder, recurrent episode with anxious distress F33.9 and Bipolar disorder, current episode manic without psychotic features F31.10 [place] [address], [place] [address]- 5844 Sep, [place] [address] [place] [id number] [place] [address] 11008- 1533 Sep, [place] [id number] [place] [address] 19909- 7473 Sep, Vitamin D deficiency E55.9 [place] [id number] [place] [address] 60563- 1380 Sep, Vitamin D deficiency E55.9 [place] [address] [address]- 6280 Sep, [place] [address] [place] [id number] [place] [address] 99888- 6006 Sep, Chronic kidney disease, stage 4 (severe) N18.4 ; Hypothyroid E03.9 ; Restless leg G25.81 ; Fibromyalgia M79.7 ; Essential ( primary) hypertension I10 ; Vitamin D deficiency E55.9 ; Dyspepsia R10.13 ; Anemia in chronic kidney disease D63.1 ; Chronic kidney disease, unspecified N18.9 ; Coronary artery disease involving [place] coronary artery of [place] heart , angina presence unspecified I25.10 ; Screening breast examination Z12.39 and Low back pain M54.5 [place] [address] [place] [id number] [place] [address] 00209- 7912 August, Generalized anxiety disorder F41.1 and Major depressive disorder, recurrent episode with anxious distress F33.9 [place] [address] [place] [id number] [place] [address] 45859- 5960 August, Generalized anxiety disorder F41.1 and Major depressive disorder, recurrent episode with anxious distress F33.9 [place] [address] [place] [id number] [place] [address] 95669- 6818 August, Fibromyalgia M79.7 [place] [address] [place] [id number] [place] [address] 68013- 9273 Jul, Generalized anxiety disorder F41.1 and Major depressive disorder, recurrent episode with anxious distress F33.9 [place] [address] [place] [id number] [place] [address] 41818- 9451 Jul, Fibromyalgia M79.7 [place] [address] [place] [id number] [place] [address] 87016- 4071 Jul, Generalized anxiety disorder F41.1 [place] [address] [place] [id number] [place] [address] 14615- 1464 May, [place] [address] [place] [id number] [place] [address] 68881- 0080 May, Hypothyroid E03.9 [place] [address] 47852- 2978 08 May, 2016 Chronic kidney disease, stage 4 (severe) N18.4 ; Hypothyroid E03.9 ; Restless leg G25.81 ; Fibromyalgia M79.7 ; Essential ( primary) hypertension I10 ; Vitamin D deficiency E55.9 ; Dyspepsia R10.13 ; Acute non-recurrent maxillary sinusitis J01.00 ; Anemia in chronic kidney disease D63.1 ; Chronic kidney disease, unspecified N18.9 and Coronary artery disease involving [place] coronary artery of [place] heart, angina presence unspecified I25.10 [facility] [address] [place] [id number] [place] [address] 10497- 3216 02 May, 2016 Vitamin D deficiency, unspecified E55.9 [facility] [address] [place] [id number] [place] [address] 50535- 6862 May, Generalized anxiety disorder F41.1 and Major depressive disorder, recurrent episode with anxious distress F33.9 [place] [address] [place] [id number] [place] [address] 53875- 4782 Apr, Pain in right knee M25.561 and Pain in left knee M25.562 [place] [address] [place] [id number] [place] [address] 12922- 9968 Apr, [facility] [address] [place] [id number] [place] [address] 58118- 8519 Apr, [facility] [address] [place] [id number] [place] [address] 63956- 3750 Apr, [facility] [address] [place] [id number] [place] [address] 30904- 1348 Mar, Generalized anxiety disorder F41.1 and Major depressive disorder, recurrent episode with anxious distress F33.9 [facility] [address] [place] [id number] [place] [address] 63748- 6807 Mar, Generalized anxiety disorder F41.1 and Major depressive disorder, recurrent episode with anxious distress F33.9 [facility] [address] [place] [id number] [place] [address] 58707- 3710 Mar, [facility] [address] [place] [id number] [place] [address] 58178- 8407 Mar, [facility] [address] [place] [id number] [place] [address] 35491- 4245 Mar, [place] [address] [place] [id number] [place] [address] 69168- 3040 Mar, Asthma J45.909 and Fibromyalgia M79.7 [place] [address] 46857 2546 Mar, Chronic kidney disease, stage 4 (severe) N18.4 ; Vitamin D deficiency E55.9 and Essential (primary) hypertension I10 [place] [address] 61321- 3854 Feb, [place] [address] 67558- 5766 Feb, Dysuria R30.0 ; Mixed stress and urge urinary incontinence N39.46 ; Fibromyalgia M79.7 and Chronic kidney disease, stage IV (severe) N18.4 [place] [address] [place] [id number] [place] [address] 90308- 9252 Feb, Chronic kidney disease, stage 4 (severe) N18.4 [place] [address] [place] [id number] [place] [address] 90389- 3702 Feb, Chronic kidney disease, stage 4 (severe) N18.4 [place] [address] [place] [id number] [place] [address] 45318- 6452 Feb, [place] [address] [place] [id number] [place] [address] 43381- 5538 Feb, Vitamin D deficiency, unspecified E55.9 [place] [address] [place] [id number] [place] [address] 97060- 8121 Jan, [place] [address] [place] [id number] [place] [address] 81023- 0426 Jan, [place] [address] [place] [id number] [place] [address] 48150 2544 Dec, [place] [address] [place] [id number] [place] [address] 76280- 0587 Dec, Chronic kidney disease, stage 4 (severe) N18.4 [facility] [address] [place] [id number] [place] [address] 21745- 9163 28 Dec, 2015 Dysthymic disorder F34.1 and Generalized anxiety disorder F41.1 [facility] [address] [place] [id number] [place] [address] 59602- 7486 Dec, [facility] [address] [place] [id number] [place] [address] 68706- 0079 Dec, [facility] [address] [place] [id number] [place] [address] 54645- 4571 Dec, Dysthymic disorder F34.1 and Generalized anxiety disorder F41.1 [place] [address] 83071- 2102 Dec, Dysuria R30.0 ; Chronic kidney disease, stage 4 (severe) N18.4 ; Hypertension I10 ; Dyspepsia R10.13 ; Yeast dermatitis B37.2 ; Palpitations R00.2 ; Hypothyroid E03.9 ; Functional diarrhea K59.1 and Other seasonal allergic rhinitis J30.2 [facility] [address] 05517 -8889 Dec, [facility] [address] [place] [id number] [place] [address] 09665 -3018 Nov, Dysuria R30.0 and Stress incontinence N39.3 [facility] [address] [place] [id number] [place] [address] 28814- 1918 Nov, [facility] [address] [place] [id number] [place] [address] 56297- 8610 Nov, [facility] [address] 27919- 9351 Nov, Osteoarthritis of knees, bilateral M17.0 [facility] [address] [place] [id number] [place] [address] 22019- 2227 Nov, Dysthymic disorder F34.1 and Generalized anxiety disorder F41.1 [facility] [id number] [place] [address] 54077- 3282 Nov, [facility] [address] [place] [id number] [place] [address] 61035- 3161 Nov, [facility] [address] [place] [id number] [place] [address] 41954- 2160 Nov, Urgency of urination R39.15 [facility] [address] 38818- 3184 Nov, [facility] [address] [place] [id number] [place] [address] 07071- 6022 Nov, Chronic kidney disease, stage 4 (severe) N18.4 [facility] [address] [place] [id number] [place] [address] 83740- 6767 Oct, Hypertension I10 ; Coronary artery disease involving [place] coronary artery of [place] heart, angina presence unspecified I25.10 ; Palpitations R00.2 ; Hypothyroid E03.9 ; Right foot pain M79.671 ; Functional diarrhea K59.1 and Other seasonal allergic rhinitis J30.2 [facility] [address] [place] [id number] [place] [address] 21812- 7352 Oct, Dysthymic disorder F34.1 and Generalized anxiety disorder F41.1 [facility] [address] [place] [id number] [place] [address] 04866- 2004 Sep, [facility] [address] [place] [id number] [place] [address] 68419- 2277 Sep, [facility] [address] [place] [id number] [place] [address] 70719- 3605 Sep, [facility] [address] [place] [id number] [place] [address] [id number] [id number] Sep, [facility] [id number] [place] [address] [id number] Sep, [facility] [id number] [place] [address] [id number] 27 Sep, 2015 Dysthymic disorder F34.1 and Generalized anxiety disorder F41.1 [place] [id number] [place] [address] [id number]- [phone] 16 Sep, 2015 Asthma with acute exacerbation in adult J45.901 ; Dysuria R30.0 ; Chronic kidney disease, stage 4 (severe) N18.4 and History of anemia Z86.2 [place] [id number] [place] [address] [phone]- [phone] Generalized anxiety disorder F41.1 and Dysthymic disorder F34.[address] [id number]- [address] August, Screening breast examination Z12.39 and Acute recurrent maxillary sinusitis J01.01 [address] [id number] [place] [address] 33041- [id number] August, Osteoarthritis of knees, bilateral M17.0 [place] [id number] [place] [address] [phone] August, Chronic kidney disease, stage 4 (severe) N18.4 ; Acute non- recurrent maxillary sinusitis J01.00 ; Urinary problem R39.89 ; Bowel habit changes R19.4 ; Functional diarrhea K59.1 and History of colon polyps Z86.010 [place] [id number] [place] [place] [address] 41062- 3734 Jul, Dysthymic disorder F34.1 and Generalized anxiety disorder F41.1 [place] [id number] [place] [address] 35727- 3493 Jul, [address] 31622- 0641 Jul, Dysthymic disorder F34.1 ; Generalized anxiety disorder F41.1 and 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 [place] [id number] [place] [address] 12649- 9326 Jul, [facility] [address] [address] 3637 Jun, [facility] [id number] [place] [address] 81126- 3789 Jun, [facility] [id number] [place] [address] 90176- 8811 May, [facility] [id number] [place] [address] 06494- 0751 May, Dysthymic disorder F34.1 and Generalized anxiety disorder F41.1 [facility] [id number] [place] [address] 64818- 1178 Apr, Kidney disease N28.9 [facility] [id number] [place] [address] 64280- 2908 Apr, Dysthymic disorder F34.1 and Generalized anxiety disorder F41.1 [place] [id number] [place] [address] 25829- 8802 Apr, Chronic kidney disease, stage 4 (severe) N18.4 [place] [id number] [place] [address] 60742- 4100 Apr, Generalized anxiety disorder F41.1 ; Major depression, recurrent F33.9 and Sleep disturbance G47.9 [place] [id number] [place] [address] 23305- 8691 Mar, Generalized anxiety disorder F41.1 and Dysthymic disorder F34.1 [facility] [id number] [place] [address] 53435- 1493 Mar, Generalized anxiety disorder F41.1 ; Dysthymic disorder F34.1 and Insomnia G47.00 [facility] [id number] [place] [address] 35363- 9075 Mar, [facility] [id number] [place] [address] 59986- 7659 Mar, [place] [id number] [place] [address] 38495- 8372 17 Mar, 2015 Osteoarthritis of knees, bilateral M17.[address] 26465- 3226 Mar, Hypertension I10 ; Hypothyroid E03.9 ; Dysthymic disorder F34.1 ; Chronic kidney disease, stage 4 (severe) N18.4 and Nausea & vomiting R11.2 [place] [address] 39242- 2987 Mar, Generalized anxiety disorder F41.1 ; Dysthymic disorder F34.1 and Insomnia G47.[address] 58858- 2032 Mar, Dehydration E86.0 ; Chronic kidney disease, stage 4 (severe ) N18.4 and Nausea & vomiting R11.2 [facility] [address] 91060 -7485 Mar, Gastroenteritis K52.[address] 29068- 0340 Mar, [facility] [address] 04760- 2330 Mar, [address] 47357- 5700 Feb, Dysthymic disorder F34.1 and Generalized anxiety disorder F41.1 [place] [id number] [place] [address] 04889- 4567 Jan, UTI (urinary tract infection) N39.0 ; Asthma J45.909 ; Coronary artery disease involving [place] coronary artery of [place] heart, angina presence unspecified I25.10 ; Hypertension I10 ; Hypothyroid E03.9 ; Vitamin D deficiency E55.9 ; Insomnia G47.00 ; Palpitations R00.2 ; Depressed F32.9 ; Restless leg G25.81 and Anxiety F41.[id number] [place] [address] 24452- 4018 Jan, Dysthymic disorder F34.1 and Generalized anxiety disorder F41.1 [place] [id number] [place] [address] 38026- 0528 Jan, [place] [id number] [place] [address] 98185- 9811 30 Dec, 2014 [place] [address] 43268- 4585 28 Dec, 2014 Alkalosis 276.3 ; Chronic kidney disease, 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.4 ; Hyperpotassemia 276.7 ; Secondary hyperparathyroidism, renal 588.81 ; Proteinuria 791.0 ; Unspecified vitamin D deficiency 268.9 ; Anemia in chronic kidney disease 285.21 ; Other and unspecified hyperlipidemia 272.4 ; Hypertension, essential, benign 401.1 and Chronic kidney disease (CKD), stage III (moderate) 585.3 [place] [id number] [place] [address] 92468- 7749 16 Dec, 2014 [place] [id number] [place] [address] 01221- 1200 Dec, Depressive disorder, not elsewhere classified 311 and Generalized anxiety disorder 300.02 [place] [id number] [place] [address] 85520- 3133 10 Dec, 2014 [place] [id number] [place] [address] 42224- 3735 08 Dec, 2014 [place] [id number] [place] [address] 37359- 8413 Nov, Depressive disorder, not elsewhere classified 311 and Generalized anxiety disorder 300.02 [place] [id number] [place] [address] 03447- 4973 Nov, Arthritis of both knees 716.96 [place] [id number] [place] [address] 35277- 7168 07 Nov, 2014 PAF (paroxysmal atrial fibrillation) 427.31 ; CAD (coronary artery disease) 414.00 ; Chest pain 786.50 and Chronic kidney disease (CKD) stage G4/A1, severely decreased glomerular filtration rate (GFR) between 15-29 mL/min/1.73 square meter and albuminuria creatinine ratio less than 30 mg/g 585.4 [place] [id number] [place] [address] 67792- 9872 Oct, Coronary atherosclerosis of unspecified type of vessel, [place] or graft 414.00 ; Chronic kidney disease, 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.4 ; Hypertension 401.9 and Edema 782.3 [place] [id number] [place] [address] 02882- 0380 Oct, Depressive disorder, not elsewhere classified 311 and Generalized anxiety disorder 300.02 [place] [id number] [place] [address] 89451- 1492 Oct, Depressive disorder, not elsewhere classified 311 and Generalized anxiety disorder 300.02 [place] [id number] [place] [address] 18848- 6070 Oct, [place] [address] 75623- 2881 Oct, [place] [id number] [place] [address] 60027- 2284 Sep, [place] [id number] [place] [address] 50914- 2067 Sep, Chronic kidney disease, 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.4 [place] [id number] [place] [address] 13016- 1559 Sep, [address] 33660- 1773 Sep, Coronary atherosclerosis of unspecified type of vessel, [place] or graft 414.00 ; Hypertension 401.9 ; Edema 782.3 and Hypothyroidism 244.9 [place] [id number] [place] [address] 89938- 3882 Sep, Coronary atherosclerosis of unspecified type of vessel, [place] or graft 414.00 ; Hypertension 401.9 ; Fibromyalgia 729.1 ; Edema 782.3 ; Hypothyroidism 244.9 and Anemia 285.9 [facility] [id number] [place] [address] 89568- 6212 Sep, Anxiety disorder, unspecified 300.00 and Depressive disorder , not elsewhere classified 311 [facility] [id number] [place] [address] 73251- 6574 Sep, [facility] [id number] [place] [address] 38183- 0224 August, Generalized anxiety disorder 300.02 [facility] [id number] [place] [address] 94524- 2608 August, Closed fracture of lateral malleolus 824.2 [facility] [id number] [place] [address] 29742- 1333 Jul, [facility] [id number] [place] [address] 57140- 5904 Jul, [facility] [id number] [place] [address] 64812- 0426 Jun, [facility] [id number] [place] [address] 54522- 1342 Jun, [facility] [address] [address]- 7934 Jun, [facility] [id number] [place] [address] 54107- 8224 Jun, [facility] [id number] [place] [address] 07758- 9031 Jun, [facility] [id number] [place] [address] 08517- 9574 Jun, [facility] [address], [place] [address]- 7498 May, [facility] [id number] [place] [address]- 4888 19 May, 2014 [facility] [place] [facility] [address] [id number] [place] [address]- 5713 18 May, 2014 [facility] [place] [facility] [address] [id number] [place] [address]- 4136 18 May, 2014 [facility] [place] [facility] [address] [id number] [place] [address]- 1056 16 May, 2014 [facility] [place] [facility] [address] [id number] [place] [address]- 2541 16 May, 2014 [facility] [place] [facility] [address] [id number] [place] [address]- 9163 13 May, 2014 [facility] [place] [facility] [address] [id number] [place] [address]- 9906 13 May, 2014 [facility] [place] [facility] [address] [facility] [id number] [place] [address]- 0950 10 May, 2014 [facility] [place] [facility] [address] [id number] [place] [address]- 5049 10 May, 2014 [facility] [place] [facility] [address] [facility] [id number] [place] [address]- 6132 Apr, [facility] [place] [facility] [address] [id number] [place] [address]- 0947 Apr, [facility] [place] [facility] [address] [id number] [place] [address]- 2880 Mar, [facility] [place] [facility] [address] [id number] [place] [address]- 1530 Mar, [facility] [place] [facility] [address] [id number] [place] [address]- 2548 Mar, [facility] [place] [facility] [address] [id number] [place] [address]- 4504 15 Mar, 2014 [facility] [place] [facility] [address] [id number] [place] [address]- 2280 Mar, [facility] [place] [facility] [address] [id number] [place] [address]- 4611 Mar, [facility] [place] [facility] [address] [id number] [place] 5130 Mar, [facility] [place] [facility] [address] [id number] [place] [address]- 3311 Feb, [facility] [place] [facility] [address] [id number] [place] [address]- 9621 Feb, [facility] [place] [facility] [address] [id number] [place] [address]- 6055 Feb, [facility] [place] [facility] [address] [id number] [place] [address]- 4410 Jan, [facility] [place] [facility] [address] [id number] [place] [address]- 4325 Jan, [facility] [place] [facility] [address] [id number] [place] [address]- 4709 Jan, [facility] [place] [facility] [address] [id number] [place] [address]- 6278 Jan, [facility] [place] [facility] [address] [id number] [place] [address]- 6344 Jan, [facility] [place] [facility] [address] [id number], [place] [address]- 6907 Jan, [facility] [place] [facility] [address] [id number], [place] [address]- 1909 Jan, [facility] [place] [facility] [address] [id number] [place] [address]- 3250 Jan, [facility] [place] [facility] [address] [id number] [place] [address]- 8295 Jan, [facility] [place] [facility] [address] [id number] [place] [address]- 0135 Jan, [facility] [place] [facility] [address] [id number] [place] [address]- 7397 Nov, [facility] [place] [facility] [address] [id number] [place] [address]- 5975 Nov, [facility] [place] [facility] [address] [id number] [place] [address]- 1437 Nov, [facility] [place] [facility] [address] [id number] [place] [address]- 7059 Oct, [facility] [place] [facility] [address] [id number] [place] [address]- 5434 Oct, [facility] [place] [facility] [address] [id number] [place] [address]- 1076 Oct, [facility] [place] [facility] [address] [id number] [place] [address]- 8443 Oct, [facility] [place] [facility] [address] [id number] [place] [address]- 6782 Oct, [facility] [place] [facility] [address] [id number] [place] [address]- 2623 Oct, [facility] [place] [facility] [address] [id number] [place] [address]- 5368 Oct, [facility] [place] [facility] [address] [id number] [place] [address]- 2846 Oct, [facility] [place] [facility] [address] [id number] [place] [address]- 7068 Oct, [facility] [place] [facility] [address] [id number] [place] [address]- 1781 Sep, [facility] [place] [facility] [address] [id number] [place] [address]- 6359 Sep, [facility] [place] [facility] [address] [id number] [place] [address]- 9473 Sep, [facility] [place] [facility] [address] [id number] [place] 0828 Sep, [facility] [place] [facility] [address] [id number] [place] [address]- 3667 Sep, [facility] [place] [facility] [address] [id number] [place] [address]- 9445 Sep, [facility] [place] [facility] [address] [id number] [place] [address]- 7805 Sep, [facility] [place] [facility] [address] [id number] [place] [address]- 5551 Sep, [facility] [place] [facility] [address] [id number] [place] [address]- 6998 Sep, [facility] [place] [facility] [address] [id number] [place] [address]- 0807 August, [facility] [place] [facility] [address] [id number] [place] [address]- 3151 August, [facility] [place] [facility] [address] [id number] [place] [address]- 5823 August, [facility] [place] [facility] [address] [id number] [place] [address]- 8270 August, [facility] [place] [facility] [address] [id number] [place] [address]- 5541 August, [facility] [place] [facility] [address] [id number] [place] [address]- 4205 August, [facility] [place] [facility] [address] [id number], [place] [address]- 3659 Jul, [facility] [place] [facility] [address] [id number] [place] [address]- 7203 Jul, [facility] [place] [facility] [address] [id number] [place] [address]- 7706 Jul, [facility] [place] [facility] [address] [id number] [place] [address]- 6583 Jul, [facility] [place] [facility] [address] [id number], [place] [address]- 0063 07 Jul, 2013 [facility] [place] [facility] [address] [id number] [place] [address]- 4157 Jul, [facility] [place] [facility] [address] [id number] [place] [address]- 4448 Jun, [facility] [place] [facility] [address] [id number] [place] [address]- 7106 Jun, [facility] [place] [facility] [address] [id number] [place] [address]- 8188 May, [facility] [place] [facility] [address] [id number] [place] [address]- 6266 May, [facility] [place] [facility] [address] [facility] [id number] [place] [address]- 1375 May, [facility] [place] [facility] [address] [id number] [place] [address]- 4594 May, [facility] [place] [facility] [address] [facility] [id number] [place] [address]- 8436 Apr, [facility] [place] [facility] [address] [facility] [id number] [place] [address]- 1177 Apr, [facility] [place] [facility] [address] [facility] [id number] [place] [address]- 0400 Mar, [facility] [place] [facility] [address] [facility] [id number] [place] [address]- 8646 18 Mar, 2013 [facility] [place] [facility] [address] [id number], [place] [address]- 6902 17 Mar, 2013 [facility] [place] [facility] [address] [id number] [place] [address]- 3150 17 Mar, 2013 [facility] [place] [facility] [address] [facility] [id number] [place] [address]- 1686 05 Mar, 2013 [facility] [place] [facility] [address] [facility] [id number] [place] 8879 Mar, [facility] [place] [facility] [address] [id number] [place] [address]- 5113 Feb, [facility] [place] [facility] [address] [id number] [place] [address]- 4156 Feb, [facility] [place] [facility] [address] [id number] [place] [address]- 8675 Feb, [facility] [place] [facility] [address] [id number] [place] [address]- 9489 Feb, [facility] [place] [facility] [address] [id number] [place] [address]- 3991 Feb, [facility] [place] [facility] [address] [id number] [place] [address]- 5951 Feb, [facility] [place] [facility] [address] [id number] [place] [address]- 3360 Jan, [facility] [place] [facility] [address] [id number] [place] [address]- 8634 Jan, [facility] [place] [facility] [address] [id number] [place] [address]- 9763 Jan, [facility] [place] [facility] [address] [id number] [place] [address]- 7179 Jan, [facility] [place] [facility] [address] [id number] [place] [address]- 4290 Jan, [facility] [place] [facility] [address] [id number] [place] [address]- 1784 Jan, [facility] [place] [facility] [address] [id number] [place] [address]- 0506 Dec, [facility] [place] [facility] [address] [id number] [place] [address]- 9585 09 Dec, 2012 [facility] [place] [facility] [address] [id number] [place] [address]- 3696 16 Nov, 2012 [facility] [place] [facility] [address] [id number] [place] [address]- 1868 Nov, [facility] [place] [facility] [address] [id number] [place] [address]- 3461 Oct, [facility] [place] [facility] [address] [id number] [place] [address]- 5880 Oct, [facility] [place] [facility] [address] [id number] [place] 5745 Oct, [facility] [place] [facility] [address] [id number] [place] [address]- 7542 Oct, [facility] [place] [facility] [address] [id number] [place] [address]- 9399 Oct, [facility] [place] [facility] [address] [id number] [place] 3124 Oct, [facility] [place] [facility] [address] [id number] [place] [address]- 5462 Sep, [facility] [place] [facility] [address] [id number] [place] [address]- 1804 Sep, [facility] [place] [facility] [address] [id number] [place] [address]- 9166 Sep, [facility] [place] [facility] [address] [id number] [place] [address]- 2967 Sep, [facility] [place] [facility] [address] [id number] [place] [address]- 6419 August, [facility] [place] [facility] [address] [id number] [place] [address]- 6619 August, [facility] [place] [facility] [address] [id number] [place] 6740 August, [facility] [place] [facility] [address] [id number] [place] [address]- 8763 August, [facility] [place] [facility] [address] [id number] [place] [address]- 7118 August, [facility] [place] [facility] [address] [id number] [place] [address]- 3251 Jul, [facility] [place] [address] [id number] [place] [address]- 1514 Jul, [facility] [address] [id number] [place] [address]- 2409 Jul, [facility] [address] [id number] [place] [address]- 6717 Jul, [facility] [address] [id number] [place] [address]- 2362 Jul, [facility] [address] [id number] [place] [address]- 3170 Jul, [facility] [address] [id number] [place] [address]- 6138 Jul, [facility] [place] [facility] [address] [id number] [place] [address]- 1415 Jul, [facility] [address] [id number] [place] [address] Jul, [facility] [address] [id number] [place] [address] Jul, [facility] [address] [id number] [id number] Jun, [facility] [address] [id number] [place] [address] Jun, [facility] [address] [id number], [place] [address] Jun, [facility] [address] [id number], [place] [address] Jun, [facility] [address] [id number] [place] [address] Jun, [facility] [address] [id number], [place] [address] May, [facility] [place] [facility] [address] [id number] [place] [address] May, [facility] [address] [id number] [place] [address] May, [facility] [address] [id number] [place] [address] Apr, [facility] [address] [id number] [place] [address] Apr, [facility] [address] [id number] [place] [address] Apr, [facility] [address] [id number] [place] [address] Apr, [facility] [address] [id number] [place] [address] Apr, [facility] [address] [id number] [place] [address]- [address] Apr, [facility] [address] [id number] [place] [address] Mar, [facility] [address] [id number] [place] [address] Mar, [facility] [address] [id number] [place] [address]287 Mar, [facility] [address] [id number] [place] [address]- [address] Mar, [facility] [place] [facility] [address] [id number] [place] [address]- [address] Feb, [facility] [place] [facility] [address] [id number] [place] [address] Feb, [facility] [place] [facility] [address] [id number] [place] [address] Feb, [facility] [place] [facility] [address] [id number], [place] [address] Feb, [facility] [place] [facility] [address] [id number] [place] [address] Feb, [facility] [place] [facility] [address] [id number], [place] [address] Feb, [facility] [place] [facility] [address] [facility] [id number] [place] [address] Feb, [facility] [place] [facility] [address] [id number], [place] [address] Feb, [facility] [place] [facility] [address] [id number] [place] [address] Feb, [facility] [place] [facility] [address] [id number] [place] [address]841 Feb, [facility] [place] [facility] [address] [id number], [place] [address] Feb, [facility] [place] [facility] [address] [id number], [place] [address] Feb, [facility] [place] [facility] [address] [id number], [place] [address] Feb, [facility] [place] [facility] [address] [facility] [id number], [place] [address] Feb, [facility] [place] [facility] [address] [id number], [place] [address] Feb, [facility] [place] [facility] [address] [facility] [id number], [place] [address] Feb, [facility] [place] [facility] [address] [id number], [place] [address] Jan, [facility] [place] [facility] [address] [id number] [place] [address]- [address] Jan, [facility] [place] [facility] [address] [facility] [id number] [place] [address]- [address] Jan, [facility] [place] [facility] [address] [id number] [place] [address]- [address] 31 Jan, 2012 [facility] [place] [facility] [address] [id number] [place] [address]- [address] 30 Jan, 2012 [facility] [place] [facility] [address] [id number] [place] [address]- [address] Jan, [facility] [place] [facility] [address] [id number] [place] [address]- [address]36 25 Jan, 2012 [facility] [place] [facility] [address] [id number] [place] [address]- [address]94 16 Jan, 2012 [facility] [place] [facility] [address] [id number] [place] [address]- [address] 16 Jan, 2012 [facility] [place] [facility] [address] [id number] [place] [address]- [address] 15 Jan, 2012 [facility] [place] [facility] [address] [id number] [place] [address]- [address] 15 Jan, 2012 [facility] [place] [facility] [address] [id number] [place] [address]- [address] Jan, [facility] [place] [facility] [address] [id number] [place] [address]- [address]489 26 Dec, 2011 [facility] [place] [facility] [address] [id number] [place] [address]- [address]39 26 Sep, 2011 [facility] [place] [facility] [address] [id number] [place] [address]- 2543 24 Sep, 2011 [facility] [place] [facility] [address] [id number] [place] [address] 2542 23 Sep, 2011 [facility] [place] [facility] [address] [id number] [place] [address] 2546 22 Sep, 2011 [facility] [place] [facility] [address] [id number] [place] [address]- [address]46 21 Sep, 2011 [facility] [place] [facility] [address] [id number] [place] [address] 20 Sep, 2011 [facility] [place] [facility] [address] [id number] [place] [address] 20 Dec, 2011 [facility] [place] [facility] [address] [id number] [place] [address] 07 Dec, 2011 [facility] [place] [facility] [address] [id number] [place] [address] 06 Dec, 2011 [facility] [place] [facility] [address] [id number] [place] [address] 06 Dec, 2011 [facility] [place] [facility] [address] [id number] [place] [address] 05 Dec, 2011 [facility] [place] [facility] [address] [id number] [place] [address] 23 Nov, 2011 [facility] [place] [facility] [address] [id number] [place] [address] 17 Nov, 2011 [facility] [place] [facility] [address] [id number] [place] [address]992 13 Nov, 2011 [facility] [place] [facility] [address] [id number] [place] [address] Nov, [facility] [place] [facility] [address] [id number] [place] [address] Nov, [facility] [place] [facility] [address] [id number] [place] [address] Nov, [facility] [place] [facility] [address] [id number] [place] [address] Nov, [facility] [place] [facility] [address] [id number] [place] [address] 1498 Nov, [facility] [place] [facility] [address] [id number] [place] [address] 9292 Oct, [facility] [place] [facility] [address] [id number] [place] [address]287 Oct, [facility] [place] [facility] [address] [id number] [place] [address] 4752 Oct, [facility] [place] [facility] [address] [id number] [place] [address] 3814 Oct, [facility] [place] [facility] [address] [id number] [place] [address]907 Oct, [facility] [place] [facility] [address] [id number] [place] [address] 3796 Oct, [facility] [place] [facility] [address] [id number] [place] [address]559 Oct, [facility] [place] [facility] [address] [id number] [place] [address] 9835 Sep, [facility] [place] [facility] [address] [id number] [place] [address] 3673 Sep, [facility] [place] [facility] [address] [id number] [place] [address] 1498 August, [facility] [place] [facility] [address] [id number] [place] [address]37 August, [facility] [place] [facility] [address] [id number] [place] [address] 7285 August, [facility] [place] [facility] [address] [id number] [place] [address] 7760 August, [facility] [place] [facility] [address] [id number] [place] [address] 6686 Jul, [facility] [place] [facility] [address] [id number] [place] [address] 58[address] Jul, [facility] [place] [facility] [address] [id number] [place] [address] 7031 Jul, [facility] [place] [facility] [address] [id number] [place] [address] 3062 Jul, [facility] [place] [facility] [address] [id number] [place] [address] 6278 Jul, [facility] [place] [facility] [address] [id number] [place] [address] 4004 Jul, [facility] [place] [facility] [address] [id number] [place] [address] 0739 Jul, [facility] [place] [facility] [address] [id number] [place] [address] 4451 Jul, [facility] [place] [facility] [address] [id number] [place] [address] 5968 Jul, [facility] [place] [facility] [address] [id number] [place] [address] 3424 23 Jun, 2011 [facility] [place] [facility] [address] [id number] [place] [address] 5967 19 Jun, 2011 [facility] [place] [facility] [address] [facility] [id number] [place] [address] 8926 15 Jun, 2011 [facility] [place] [facility] [address] [id number] [place] [address] 7166 14 Jun, 2011 [facility] [place] [facility] [address] [id number] [place] [address] 2329 Jun, [facility] [place] [facility] [address] [facility] [id number] [place] [address] 1714 Jun, [facility] [place] [facility] [address] [facility] [id number] [place] [address] 6[address] Jun, [facility] [place] [facility] [address] [id number] [place] [address] 9063 May, [facility] [place] [facility] [address] [id number] [place] [address] 24 May, 2011 [facility] [place] [facility] [address] [id number] [place] [address] 0080 May, [facility] [place] [facility] [address] [id number] [place] [address] 0340 May, [facility] [place] [facility] [address] [facility] [id number], [place] [address] May, [facility] [address] [id number] [place] [address]- 0810 Apr, [facility] [place] [facility] [address] [id number] [place] [address]- 9967 Apr, [facility] [place] [facility] [address] [facility] [id number] [place] [address]- 9766 Apr, [facility] [place] [facility] [address] [id number] [place] [address]- 1355 Apr, [facility] [address] [id number] [place] [address]- 1723 Apr, [facility] [place] [facility] [address] [id number] [place] [address] 3224 Mar, [facility] [address] [facility] [id number] [place] [address]- 0664 Mar, [facility] [place] [facility] [address] [id number] [place] [address]- 5048 Mar, [facility] [place] [facility] [address] [facility] [id number] [place] [address]- 1715 Mar, [facility] [place] [facility] [address] [facility] [id number] [place] [address] 56[address] Mar, [facility] [place] [facility] [address] [facility] [id number] [place] [address]- 1411 Mar, [facility] [place] [facility] [address] [id number] [place] [address]- 0602 Mar, [facility] [place] [facility] [address] [id number] [place] [address]- 5021 Feb, [facility] [place] [facility] [address] [facility] [id number] [place] [address]- 1085 Feb, [facility] [place] [facility] [address] [facility] [id number] [place] [address]- 2688 08 Feb, 2011 [facility] [place] [facility] [address] [id number] [place] [address]- 6286 Feb, [facility] [place] [facility] [address] [id number] [place] [address]- 4231 Jan, [facility] [place] [facility] [address] [id number] [place] [address]- 0776 Jan, [facility] [place] [facility] [address] [id number] [place] [address]- 7536 Jan, [facility] [place] [facility] [address] [id number] [place] [address]- 8369 Jan, [facility] [place] [facility] [address] [id number] [place] [address]- 5500 Nov, [facility] [place] [facility] [address] [id number] [place] [address]- 9080 Mar, [facility] [place] [facility] [address] [id number] [place] [address]- 5655 Mar, [facility] [place] [facility] [address] [id number] [place] [address]- 8377 Mar, [facility] [place] [facility] [address] [id number] [place] [address]- 6846 Mar, [facility] [place] [facility] [address] [facility] [id number] [place] [address]- 3359 Mar, [facility] [place] [facility] [address] [id number] [place] [address]- 6901 Mar, [facility] [place] [facility] [address] [id number] [place] [address] 2545 Feb, [facility] [place] [facility] [address] [id number] [place] [address]- 7246 Feb, [facility] [place] [facility] [address] [id number] [place] [address]- 4676 Jan, [facility] [place] [facility] [address] [id number] [place] [address]- 5462 Jan, [facility] [address] [facility] [id number] [place] [address]- 7669 Jan, IMMUNIZATIONS No Known Immunizations SOCIAL HISTORY Never Assessed REASON FOR VISIT f/u PLAN OF CARE Activity Details Follow Up prn Reason: VITAL SIGNS MEDICATIONS Unknown Medications RESULTS No Results PROCEDURES Procedure Date Ordered Result Body Site [facility] VISIT MENTAL HEALTH ESTAB PT May 25, 2017 Psychotherapy, patient &/family, 30 minutes, established patient May 25, 2017 INSTRUCTIONS MEDICATIONS ADMINISTERED No Known Medications [...] & 2007 Surgical History Bladder surgery [facility] 03/2016 Hospitalization History Surgeries Only Hospitalization History 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
--- OUTSIDE RECORDS SUMMARY | 2018-05-29 08:21 | XMS REPORT ---
Author Author ISABEL MAE [facility] Address [address] [place] [address] Care Team Providers Care Procurement Cost Coordinator Name Role Phone ISABEL MAE Unavailable PROBLEMS Type Condition ICD9-CM Code QDT88-EN Code Onset Dates Condition Status SNOMED Code Problem Long-term use of high-risk medication Z79.899 Active 173995356 Problem Abnormal chest CT R93.8 Active 390765937 Problem Generalized anxiety disorder F41.1 Active 10929929 Problem Low back pain M54.5 Active 015212732 Problem Dysthymic disorder F34.1 Active 38475504 Problem Depressed F32.9 Active 60412879 Problem Coronary artery disease involving [place] coronary artery of [place] heart, angina presence unspecified I25.10 Active 3987537924661 Problem Hypothyroid E03.9 Active 84275155 Problem Insomnia G47.00 Active 714712100 Problem Vitamin D deficiency E55.9 Active 10577752 Problem Asthma J45.909 Active 959294004 Problem Chronic kidney disease, unspecified N18.9 Active 230680486 Problem Palpitations R00.2 Active 96676573 Problem Anemia in chronic kidney disease D63.1 Active 351949953933334 Problem Primary osteoarthritis of left knee M17.12 Active 996021863 Problem Bipolar disorder, current episode manic without psychotic features F31.10 Active 585686457 Problem Restless leg syndrome G25.81 Active 09999996 Problem Seasonal allergic rhinitis due to pollen J30.1 Active 01427248 Problem Functional diarrhea K59.1 Active 68462212 Problem Chronic kidney disease, stage 4 (severe) N18.4 Active 085519452 Problem Restless leg G25.81 Active 91790834 Problem Mood disorder F39 Active 80274303 Problem Degenerative tear of medial meniscus of left knee M23.204 Active 713829382 Problem Body mass index (BMI) of 40.0-44.9 in adult Z68.41 Active 858955704 Problem Stage 3 chronic kidney disease N18.3 Active 462310515 Problem Asthma with acute exacerbation in adult J45.901 Active 791753417 Problem Other seasonal allergic rhinitis J30.2 Active 100682738 Problem History of colon polyps Z86.010 Active 289647264 Problem History of anemia Z86.2 Active 628089108 Problem Fibromyalgia M79.7 Active 491492615 Problem Essential (primary) hypertension I10 Active 06959016 Problem Hypokalemia E87.6 Active 99470438 Problem Mixed stress and urge urinary incontinence N39.46 Active 192427122 ALLERGIES No Information ENCOUNTERS Encounter Location Date Diagnosis [place] [address] 26390- 3511 Oct, [place] [address] 69094- 0779 Oct, [place] [address] 36050- 5922 Sep, Restless leg syndrome G25.81 and Restless leg G25.81 [place] [address] 85083- 3523 Sep, [place] [address] 91896- 7454 Sep, Seasonal allergic rhinitis due to pollen J30.1 ; Screening for breast cancer Z12.31 ; Chest pain at rest R07.9 ; Restless leg syndrome G25.81 ; Essential (primary) hypertension I10 and Depressed F32.9 [place] [address] [place] [id number] [place] [address] 21710- 5252 August, Fibromyalgia M79.7 [place] [address] 25022- 7093 August, [place] [address] 19864- 2052 August, [place] [address] 26367- [address] August, [address] R93.8 [place] [id number] [place] [address] 81942- 4750 August, Generalized anxiety disorder F41.1 and Major depressive disorder, recurrent episode with anxious distress F33.9 [facility] [address] [place] [id number] [place] [address] 67310- [address] August, [address] R93.8 [facility] [address] [place] [id number] [place] [address] 91870- 4907 Jul, [place] [address] [place] [id number] [place] [address] 08843- 0034 Jul, Chronic kidney disease, stage 4 (severe) N18.4 [place] [address] [place] [id number] [place] [address] 58192- 0782 Jul, [place] [address] [place] [id number] [place] [address] 24194- 7436 Jul, Restless leg G25.81 ; Mixed stress and urge urinary incontinence N39.46 and Fibromyalgia M79.7 [place] [address] [place] [id number] [place] [address] 60194- 9307 Jul, Chronic kidney disease, stage 4 (severe) N18.4 [facility] [address] [place] [id number] [place] [address] 29987- 7529 Jun, Orthostatic hypotension I95.1 ; Chronic kidney disease, stage 4 (severe) N18.4 ; Chest wall discomfort R07.89 and Body mass index (BMI) of 40.0-44.9 in adult Z68.41 [place] [address] [address] 8[address] Jun, [place] [address] [place] [id number] [place] [address] 19341- 9594 Jun, Orthostatic hypotension I95.1 [place] [address] [place] [id number] [address] 7730 Jun, [facility] [address] [place] [id number] [place] [address] 33614 -5121 Jun, Orthostatic hypotension I95.1 ; Dysuria R30.0 and Acute cystitis without hematuria N30.00 [facility] [address] [place] [id number] [place] [address] 89804- 0227 Jun, [facility] [address] [place] [id number] [place] [address] 73664- 4705 Jun, Chronic kidney disease, stage 4 (severe) N18.4 [facility] [address] [place] [id number] [place] [address] 07972- 8356 Jun, Fibromyalgia M79.7 [facility] [address] 00432- 4872 Jun, [facility] [address] [place] [id number] [place] [address] 37486- 5413 Jun, [facility] [address] [place] [id number] [place] [address] 53469- [address] May, [address] R93.8 and Stage 3 chronic kidney disease N18.3 [facility] [address] [place] [id number] [place] [address] 32230- 0657 May, Chronic kidney disease, stage 4 (severe) N18.4 [facility] [address] [place] [id number] [place] [address] 98519- 4847 May, Chronic kidney disease, stage 4 (severe) N18.4 [facility] [address] [place] [id number] [place] [address] 94303- [address] May, [address] R93.8 [facility] [address] [place] [id number] [place] [address] 74290- 2696 May, [facility] [address] [place] [id number] [place] [address] 54139- 7267 May, [facility] [address] [place] [id number] [place] [address] 77009- 4442 May, Generalized anxiety disorder F41.1 and Major depressive disorder, recurrent episode with anxious distress F33.9 [facility] [id number] [place] [address] 65947- 5419 May, Mood disorder F39 [facility] [id number] [place] [address] 71941- 8929 Apr, [facility] [address] [place] [id number] [place] [address] 51123- 3911 Apr, Infected skin lesion L08.9 and Muscle strain of right shoulder region, initial encounter S46.911A [place] [address] [place] [id number] [place] [address] 96583- 9259 Apr, Generalized anxiety disorder F41.1 and Major depressive disorder, recurrent episode with anxious distress F33.9 [place] [address] [place] [id number] [place] [address] 66082- 1316 Apr, [facility] [address] [place] [id number] [place] [address] 77853- 3173 Apr, Recent urinary tract infection Z87.440 and Hypothyroid E03.9 [place] [address] [place] [id number] [place] [address] 53224- 1274 Apr, Generalized anxiety disorder F41.1 and Major depressive disorder, recurrent episode with anxious distress F33.9 [place] [id number] [place] [address] 02813- 0870 Apr, Recent urinary tract infection Z87.440 [facility] [id number] [place] [address] 56055- 3387 Mar, [facility] [address] [place] [id number] [place] [address] 51256 -4312 Mar, Dysuria R30.0 ; Acute cystitis without hematuria N30.00 and BMI 40.0-44.9, adult Z68.41 [place] [id number] [place] [address] 72343- 0315 Mar, [place] [address] [place] [id number] [place] [address] 38875- 5934 Mar, [place] [address] 72234- 2449 Mar, Generalized anxiety disorder F41.1 and Major depressive disorder, recurrent episode with anxious distress F33.9 [place] [address] 80622- 5367 Feb, Conjunctivitis, bacterial H10.9 [place] [address] 08361- 6297 Feb, [facility] WALK IN [place] [address] 27255 -3409 Feb, Conjunctivitis, bacterial H10.9 [place] [address] 47850- 4491 Feb, [facility] [place] [address] [place] [id number] [place] [address] 90355 -3091 Feb, Dysuria R30.0 ; Acute cystitis N30.00 and BMI 40.0-44.9, adult Z68.41 [place] [address] [place] [id number] [place] [address] 91729- 0466 Feb, [place] [address] [place] [id number] [place] [address] 62914- 6314 Feb, Generalized anxiety disorder F41.1 and Major depressive disorder, recurrent episode with anxious distress F33.9 [place] [address] [place] [id number] [place] [address] 10634- 2830 Feb, Mood disorder F39 and BMI 40.0-44.9, adult Z68.41 [place] [address] [place] [id number] [place] [address] 65868- 9458 Jan, [place] [address] [place] [id number] [place] [address] 18539- 7089 Jan, [place] [address] [place] [id number] [place] [address] 28198- 4031 Jan, Hypothyroid E03.9 [place] [address] 37301- 2731 Jan, [place] [address] [place] [id number] [place] [address] 09393- 4367 Jan, Chronic kidney disease, unspecified N18.9 ; Hypokalemia E87.6 ; Essential (primary) hypertension I10 ; Fibromyalgia M79.7 ; Coronary artery disease involving [place] coronary artery of [place] heart, angina presence unspecified I25.10 ; Hypothyroid E03.9 and Encounter for immunization Z23 [place] [address] 07319- 9077 Jan, Hypothyroid E03.9 [place] [address] 13969- 8312 Jan, [place] [address] 53637- 9975 Dec, Vitamin D deficiency E55.9 [place] [address] 82284- 1789 Dec, Primary osteoarthritis of left knee M17.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 [place] [address] [place] [id number] [place] [address] 47354- 3736 19 Dec, 2016 Fibromyalgia M79.7 [place] [address] 00451- 2758 18 Dec, 2016 Mood disorder F39 [place] [address] 98776- 3929 13 Dec, 2016 [place] [address] 67194- 3696 Dec, Generalized anxiety disorder F41.1 and Major depressive disorder, recurrent episode with anxious distress F33.9 [place] [address] 48177- 6288 11 Dec, 2016 [facility] [address] [address]- 9808 08 Dec, 2016 Streptococcal meningitis G00.2 [facility] [address] [address]- 5279 07 Dec, 2016 Streptococcal meningitis G00.2 [facility] [id number] [place] [address] 17572- 3160 07 Dec, 2016 [facility] [id number] [place] [address] 30919- 5250 06 Dec, 2016 Streptococcal meningitis G00.2 [facility] [id number] [place] [address] 50197- 0838 Dec, 2016 [facility] [id number] [place] [address] 92823- 8554 Dec, Major depressive disorder, recurrent episode with anxious distress F33.9 [facility] [id number] [place] [address] 52835- 0720 Nov, Fever, unspecified fever cause R50.9 [facility] [id number] [place] [address] 81117- 2692 24 Nov, 2016 [facility] [id number] [place] [address] 94241- 5002 Nov, Hypothyroid E03.9 [facility] [id number] [place] [address] 21104- 9573 Nov, Generalized anxiety disorder F41.1 and Major depressive disorder, recurrent episode with anxious distress F33.9 [facility] [id number] [place] [address] 78458- 6088 Nov, [facility] [address] [id number] Oct, Dental examination Z01.20 [facility] [id number] [place] [address] 89639- 3954 Oct, Generalized anxiety disorder F41.1 and Major depressive disorder, recurrent episode with anxious distress F33.9 [place] [id number] [place] [address] 52788- 7319 Oct, Chronic kidney disease, stage 4 (severe) N18.4 [place] [address] [place] [id number] [place] [address] 84550- 9885 Oct, [place] [address] [place] [id number] [place] [address] 95521- 7201 Oct, Fibromyalgia M79.7 [place] [address] [place] [id number] [place] [address] 58528- 0299 Oct, [place] [address] [place] [id number] [place] [address] 79127- 0458 Oct, Generalized anxiety disorder F41.1 ; Major depressive disorder, recurrent episode with anxious distress F33.9 and Bipolar disorder, current episode manic without psychotic features F31.10 [place] [address] [address]- 7808 Sep, [place] [address] [place] [id number] [place] [address] 15908- 8231 Sep, [place] [id number] [place] [address] 92850- 9997 Sep, Vitamin D deficiency E55.9 [place] [id number] [place] [address] 86284- 7671 Sep, Vitamin D deficiency E55.9 [place] [address] [address]- 1916 Sep, [place] [address] [place] [id number] [place] [address] 40801- 5487 Sep, Chronic kidney disease, stage 4 (severe) N18.4 ; Hypothyroid E03.9 ; Restless leg G25.81 ; Fibromyalgia M79.7 ; Essential ( primary) hypertension I10 ; Vitamin D deficiency E55.9 ; Dyspepsia R10.13 ; Anemia in chronic kidney disease D63.1 ; Chronic kidney disease, unspecified N18.9 ; Coronary artery disease involving [place] coronary artery of [place] heart , angina presence unspecified I25.10 ; Screening breast examination Z12.39 and Low back pain M54.5 [place] [address] [place] [id number] [place] [address] 25119- 3925 August, Generalized anxiety disorder F41.1 and Major depressive disorder, recurrent episode with anxious distress F33.9 [place] [address] [place] [id number] [place] [address] 19314- 9809 August, Generalized anxiety disorder F41.1 and Major depressive disorder, recurrent episode with anxious distress F33.9 [place] [address] [place] [id number] [place] [address] 63199- 2839 August, Fibromyalgia M79.7 [place] [address] [place] [id number] [place] [address] 61428- 6581 Jul, Generalized anxiety disorder F41.1 and Major depressive disorder, recurrent episode with anxious distress F33.9 [place] [address] [place] [id number] [place] [address] 78782- 0577 Jul, Fibromyalgia M79.7 [place] [address] [place] [id number] [place] [address] 38658- 4435 Jul, Generalized anxiety disorder F41.1 [place] [address] [place] [id number] [place] [address] 07023- 6550 May, [place] [address] [place] [id number] [place] [address] 28409- 7800 May, Hypothyroid E03.9 [place] [address] 15696- 8800 08 May, 2016 Chronic kidney disease, stage 4 (severe) N18.4 ; Hypothyroid E03.9 ; Restless leg G25.81 ; Fibromyalgia M79.7 ; Essential ( primary) hypertension I10 ; Vitamin D deficiency E55.9 ; Dyspepsia R10.13 ; Acute non-recurrent maxillary sinusitis J01.00 ; Anemia in chronic kidney disease D63.1 ; Chronic kidney disease, unspecified N18.9 and Coronary artery disease involving [place] coronary artery of [place] heart, angina presence unspecified I25.10 [facility] [address] [place] [id number] [place] [address] 99737- 7199 02 May, 2016 Vitamin D deficiency, unspecified E55.9 [facility] [address] [place] [id number] [place] [address] 64381- 7033 May, Generalized anxiety disorder F41.1 and Major depressive disorder, recurrent episode with anxious distress F33.9 [place] [address] [place] [id number] [place] [address] 63123- 5639 Apr, Pain in right knee M25.561 and Pain in left knee M25.562 [place] [address] [place] [id number] [place] [address] 86389- 9782 Apr, [facility] [address] [place] [id number] [place] [address] 36027- 3238 Apr, [facility] [address] [place] [id number] [place] [address] 64670- 4539 Apr, [facility] [address] [place] [id number] [place] [address] 13576- 0722 Mar, Generalized anxiety disorder F41.1 and Major depressive disorder, recurrent episode with anxious distress F33.9 [facility] [address] [place] [id number] [place] [address] 57017- 2226 Mar, Generalized anxiety disorder F41.1 and Major depressive disorder, recurrent episode with anxious distress F33.9 [facility] [address] [place] [id number] [place] [address] 07405- 5933 Mar, [facility] [address] [place] [id number] [place] [address] 72905- 9184 Mar, [facility] [address] [place] [id number] [place] [address] 51218- 4587 Mar, [place] [address] [place] [id number] [place] [address] 82662- 3111 Mar, Asthma J45.909 and Fibromyalgia M79.7 [place] [address] 79497 2546 Mar, Chronic kidney disease, stage 4 (severe) N18.4 ; Vitamin D deficiency E55.9 and Essential (primary) hypertension I10 [place] [address] 15702- 8983 Feb, [place] [address] 19713- 9904 Feb, Dysuria R30.0 ; Mixed stress and urge urinary incontinence N39.46 ; Fibromyalgia M79.7 and Chronic kidney disease, stage IV (severe) N18.4 [place] [address] [place] [id number] [place] [address] 15028- 6957 Feb, Chronic kidney disease, stage 4 (severe) N18.4 [place] [address] [place] [id number] [place] [address] 73444- 7853 Feb, Chronic kidney disease, stage 4 (severe) N18.4 [place] [address] [place] [id number] [place] [address] 91209- 5025 Feb, [place] [address] [place] [id number] [place] [address] 76260- 4128 Feb, Vitamin D deficiency, unspecified E55.9 [place] [address] [place] [id number] [place] [address] 50456- 1249 Jan, [place] [address] [place] [id number] [place] [address] 70847- 3136 Jan, [place] [address] [place] [id number] [place] [address] 23074 2547 Dec, [place] [address] [place] [id number] [place] [address] 25971- 7809 Dec, Chronic kidney disease, stage 4 (severe) N18.4 [facility] [address] [place] [id number] [place] [address] 58423- 9645 28 Dec, 2015 Dysthymic disorder F34.1 and Generalized anxiety disorder F41.1 [facility] [address] [place] [id number] [place] [address] 81468- 5323 Dec, [facility] [address] [place] [id number] [place] [address] 11362- 4451 Dec, [facility] [address] [place] [id number] [place] [address] 17573- 9713 Dec, Dysthymic disorder F34.1 and Generalized anxiety disorder F41.1 [place] [address] 30162- 3206 Dec, Dysuria R30.0 ; Chronic kidney disease, stage 4 (severe) N18.4 ; Hypertension I10 ; Dyspepsia R10.13 ; Yeast dermatitis B37.2 ; Palpitations R00.2 ; Hypothyroid E03.9 ; Functional diarrhea 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 [address] 48578 -9189 Dec, [facility] WALK IN [facility] [address] [place] [id number] [place] [address] 27011 -8824 Nov, Dysuria R30.0 and Stress incontinence N39.3 [facility] [address] [place] [id number] [place] [address] 06967- 2552 Nov, [facility] [address] [place] [id number] [place] [address] 91476- 6499 Nov, [facility] [address] 52931- 2994 Nov, Osteoarthritis of knees, bilateral M17.0 [facility] [address] [place] [id number] [place] [address] 79463- 0095 Nov, Dysthymic disorder F34.1 and Generalized anxiety disorder F41.1 [facility] [id number] [place] [address] 43607- 3622 Nov, [facility] [address] [place] [id number] [place] [address] 98456- 1448 Nov, [facility] [address] [place] [id number] [place] [address] 54426- 5865 Nov, Urgency of urination R39.15 [facility] [address] 07728- 8151 Nov, [facility] [address] [place] [id number] [place] [address] 49227- 9587 Nov, Chronic kidney disease, stage 4 (severe) N18.4 [facility] [address] [place] [id number] [place] [address] 48066- 1069 Oct, Hypertension I10 ; Coronary artery disease involving [place] coronary artery of [place] heart, angina presence unspecified I25.10 ; Palpitations R00.2 ; Hypothyroid E03.9 ; Right foot pain M79.671 ; Functional diarrhea K59.1 and Other seasonal allergic rhinitis J30.2 [facility] [address] [place] [id number] [place] [address] 32234- 0220 Oct, Dysthymic disorder F34.1 and Generalized anxiety disorder F41.1 [facility] [address] [place] [id number] [place] [address] 22145- 4197 Sep, [facility] [address] [id number] [place] [address] 70552- 1235 Sep, [facility] [address] [id number] [place] [address] 47841- 8091 Sep, [facility] [address] [place] [id number] [place] [address] 41315- 5528 Sep, [facility] [id number] [place] [address] 32637- 8419 Sep, [facility] [address] [place] [id number] [place] [address] 55226- 2887 27 Sep, 2015 Dysthymic disorder F34.1 and Generalized anxiety disorder F41.1 [place] [address] [place] [id number] [place] [address] 81720- 0241 16 Sep, 2015 Asthma with acute exacerbation in adult J45.901 ; Dysuria R30.0 ; Chronic kidney disease, stage 4 (severe) N18.4 and History of anemia Z86.2 [place] [address] [place] [id number] [place] [address] 66810- 4305 2015 Generalized anxiety disorder F41.1 and Dysthymic disorder F34.[address] 27686- 9092 August, Screening breast examination Z12.39 and Acute recurrent maxillary sinusitis J01.01 [place] [id number] [place] [address] 30036- 3106 August, Osteoarthritis of knees, bilateral M17.0 [place] [id number] [place] [address] 68951- 6478 August, Chronic kidney disease, stage 4 (severe) N18.4 ; Acute non- recurrent maxillary sinusitis J01.00 ; Urinary problem R39.89 ; Bowel habit changes R19.4 ; Functional diarrhea K59.1 and History of colon polyps Z86.010 [place] [address] [id number] [place] [address] 93246- 4896 Jul, Dysthymic disorder F34.1 and Generalized anxiety disorder F41.1 [place] [address] [place] [id number] [place] [address] 57[address]- 6077 Jul, [address] [address] Jul, Dysthymic disorder F34.1 ; Generalized anxiety disorder F41.1 and 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 [place] [address] [id number] [place] [address] 06634- 5841 Jul, [facility] [id number] [address] Jun, [facility] [address] [id number] [place] [address] 47884- 9661 Jun, [facility] [address] [id number] [place] [address] 99959- 3420 May, [facility] [id number] [place] [address] 79248- 7345 May, Dysthymic disorder F34.1 and Generalized anxiety disorder F41.1 [facility] [id number] [place] [address] 50571- 4120 Apr, Kidney disease N28.9 [facility] [id number] [place] [address] 18621- 5961 Apr, Dysthymic disorder F34.1 and Generalized anxiety disorder F41.1 [place] [id number] [place] [address] 57605- 3269 Apr, Chronic kidney disease, stage 4 (severe) N18.4 [place] [id number] [place] [address] 59135- 8274 Apr, Generalized anxiety disorder F41.1 ; Major depression, recurrent F33.9 and Sleep disturbance G47.9 [place] [id number] [place] [address] 59143- 2483 Mar, Generalized anxiety disorder F41.1 and Dysthymic disorder F34.1 [facility] [id number] [place] [address] 89214- 0110 Mar, Generalized anxiety disorder F41.1 ; Dysthymic disorder F34.1 and Insomnia G47.00 [facility] [id number] [place] [address] 71796- 9347 Mar, [facility] [id number] [place] [address] 63483- 5962 Mar, [id number] [place] [address] 66832- 3429 17 Mar, 2015 Osteoarthritis of knees, bilateral M17.[address] 85752- 9137 Mar, Hypertension I10 ; Hypothyroid E03.9 ; Dysthymic disorder F34.1 ; Chronic kidney disease, stage 4 (severe) N18.4 and Nausea & vomiting R11.2 [place] [address] 81210- 7277 Mar, Generalized anxiety disorder F41.1 ; Dysthymic disorder F34.1 and Insomnia G47.[address] 57643- 5253 Mar, Dehydration E86.0 ; Chronic kidney disease, stage 4 (severe ) N18.4 and Nausea & vomiting R11.2 [facility] [address] 96806 -6203 Mar, Gastroenteritis K52.[address] 57939- 9955 Mar, [place] [address] 34901- 9187 Mar, [address] 81200- 7570 Feb, Dysthymic disorder F34.1 and Generalized anxiety disorder F41.1 [place] [id number] [place] [address] 25957- 5926 Jan, UTI (urinary tract infection) N39.0 ; Asthma J45.909 ; Coronary artery disease involving [place] coronary artery of [place] heart, angina presence unspecified I25.10 ; Hypertension I10 ; Hypothyroid E03.9 ; Vitamin D deficiency E55.9 ; Insomnia G47.00 ; Palpitations R00.2 ; Depressed F32.9 ; Restless leg G25.81 and Anxiety F41.[id number] [place] [address] 02624- 5269 Jan, Dysthymic disorder F34.1 and Generalized anxiety disorder F41.1 [place] [id number] [place] [address] 05391- 6370 Jan, [place] [id number] [place] [address] 02054- 7587 30 Dec, 2014 [place] [address] 90150- 0286 28 Dec, 2014 Alkalosis 276.3 ; Chronic kidney disease, 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.4 ; Hyperpotassemia 276.7 ; Secondary hyperparathyroidism, renal 588.81 ; Proteinuria 791.0 ; Unspecified vitamin D deficiency 268.9 ; Anemia in chronic kidney disease 285.21 ; Other and unspecified hyperlipidemia 272.4 ; Hypertension, essential, benign 401.1 and Chronic kidney disease (CKD), stage III (moderate) 585.3 [place] [id number] [place] [address] 58892- 7962 16 Dec, 2014 [place] [id number] [place] [address] 20289- 5196 Dec, Depressive disorder, not elsewhere classified 311 and Generalized anxiety disorder 300.02 [place] [id number] [place] [address] 18699- 0760 10 Dec, 2014 [place] [id number] [place] [address] 45136- 7181 08 Dec, 2014 [place] [id number] [place] [address] 43072- 3220 Nov, Depressive disorder, not elsewhere classified 311 and Generalized anxiety disorder 300.02 [place] [id number] [place] [address] 49980- 1616 Nov, Arthritis of both knees 716.96 [id number] [place] [address] 83873- 6037 07 Nov, 2014 PAF (paroxysmal atrial fibrillation) 427.31 ; CAD (coronary artery disease) 414.00 ; Chest pain 786.50 and Chronic kidney disease (CKD) stage G4/A1, severely decreased glomerular filtration rate (GFR) between 15-29 mL/min/1.73 square meter and albuminuria creatinine ratio less than 30 mg/g 585.4 [place] [id number] [place] [address] 92703- 3939 Oct, Coronary atherosclerosis of unspecified type of vessel, [place] or graft 414.00 ; Chronic kidney disease, 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.4 ; Hypertension 401.9 and Edema 782.3 [place] [id number] [place] [address] 85339- 8287 Oct, Depressive disorder, not elsewhere classified 311 and Generalized anxiety disorder 300.02 [place] [id number] [place] [address] 49201- 9887 Oct, Depressive disorder, not elsewhere classified 311 and Generalized anxiety disorder 300.02 [place] [id number] [place] [address] 58077- 2501 Oct, [place] [address] 02147- 0178 Oct, [place] [id number] [place] [address] 96206- 0590 Sep, [place] [id number] [place] [address] 61499- 0551 Sep, Chronic kidney disease, 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.4 [place] [id number] [place] [address] 70434- 9091 Sep, [address] 37655- 6038 Sep, Coronary atherosclerosis of unspecified type of vessel, [place] or graft 414.00 ; Hypertension 401.9 ; Edema 782.3 and Hypothyroidism 244.9 [place] [id number] [place] [address] 40015- 8809 Sep, Coronary atherosclerosis of unspecified type of vessel, [place] or graft 414.00 ; Hypertension 401.9 ; Fibromyalgia 729.1 ; Edema 782.3 ; Hypothyroidism 244.9 and Anemia 285.9 [facility] [id number] [place] [address] 12795- 7956 Sep, Anxiety disorder, unspecified 300.00 and Depressive disorder , not elsewhere classified 311 [facility] [id number] [place] [address] 55841- 9689 Sep, [facility] [id number] [place] [address] 74845- 8683 August, Generalized anxiety disorder 300.02 [facility] [id number] [place] [address] 23931- 9313 August, Closed fracture of lateral malleolus 824.2 [facility] [id number] [place] [address] 98597- 5011 Jul, [facility] [id number] [place] [address] 03501- 7286 Jul, [facility] [id number] [place] [address] 80128- 0306 Jun, [facility] [id number] [place] [address] 79811- 7763 Jun, [facility] [address] [address]- 5158 Jun, [facility] [id number] [place] [address] 36010- 2908 Jun, [facility] [id number] [place] [address] 57207- 3326 Jun, [facility] [id number] [place] [address] 14175- 5684 Jun, [facility] [address] [address]- 9878 May, [facility] [id number] [place] [address]- 6290 19 May, 2014 [facility] [place] [facility] [address] [id number] [place] [address]- 7173 18 May, 2014 [facility] [place] [facility] [address] [id number] [place] [address]- 2096 18 May, 2014 [facility] [place] [facility] [address] [id number] [place] [address]- 2026 16 May, 2014 [facility] [place] [facility] [address] [id number] [place] [address]- 2543 16 May, 2014 [facility] [place] [facility] [address] [id number] [place] [address]- 2552 13 May, 2014 [facility] [place] [facility] [address] [id number] [place] [address]- 5005 13 May, 2014 [facility] [place] [facility] [address] [facility] [place] [id number] [place] [address]- 7913 10 May, 2014 [facility] [place] [facility] [address] [id number] [place] [address]- 1282 10 May, 2014 [facility] [place] [facility] [address] [facility] [place] [place] [id number] [place] [address]- 6075 Apr, [facility] [place] [facility] [address] [id number] [place] [address]- 4860 Apr, [facility] [place] [facility] [address] [id number] [place] [address]- 0712 Mar, [facility] [place] [facility] [address] [id number] [place] [address]- 4406 Mar, [facility] [place] [facility] [address] [id number] [place] [address]- 2547 Mar, [facility] [place] [facility] [address] [id number] [place] [address]- 5466 15 Mar, 2014 [facility] [place] [facility] [address] [id number] [place] [address]- 1283 Mar, [facility] [place] [facility] [address] [id number] [place] [address]- 0141 Mar, [facility] [place] [facility] [address] [id number] [place] 7570 Mar, [facility] [place] [facility] [address] [id number] [place] [address]- 4723 Feb, [facility] [place] [facility] [address] [id number] [place] [address]- 0498 Feb, [facility] [place] [facility] [address] [id number] [place] [address]- 3925 Feb, [facility] [place] [facility] [address] [id number] [place] [address]- 0407 Jan, [facility] [place] [facility] [address] [id number] [place] [address]- 5670 Jan, [facility] [place] [facility] [address] [id number] [place] [address]- 6817 Jan, [facility] [place] [facility] [address] [id number] [place] [address]- 0851 Jan, [facility] [place] [facility] [address] [id number] [place] [address]- 9238 Jan, [facility] [place] [facility] [address] [id number], [place] [address]- 6977 Jan, [facility] [place] [facility] [address] [id number], [place] [address]- 7731 Jan, [facility] [place] [facility] [address] [id number] [place] [address]- 7719 Jan, [facility] [place] [facility] [address] [id number] [place] [address]- 1776 Jan, [facility] [place] [facility] [address] [id number] [place] [address]- 1144 Jan, [facility] [place] [facility] [address] [id number] [place] [address]- 4799 Nov, [facility] [place] [facility] [address] [id number] [place] [address]- 1120 Nov, [facility] [place] [facility] [address] [id number] [place] [address]- 9873 Nov, [facility] [place] [facility] [address] [id number] [place] [address]- 4943 Oct, [facility] [place] [facility] [address] [id number] [place] [address]- 4265 Oct, [facility] [place] [facility] [address] [id number] [place] [address]- 7391 Oct, [facility] [place] [facility] [address] [id number] [place] [address]- 2099 Oct, [facility] [place] [facility] [address] [id number] [place] [address]- 9472 Oct, [facility] [place] [facility] [address] [id number] [place] [address]- 8250 Oct, [facility] [place] [facility] [address] [id number] [place] [address]- 1317 Oct, [facility] [place] [facility] [address] [id number] [place] [address]- 1744 Oct, [facility] [place] [facility] [address] [id number] [place] [address]- 0378 Oct, [facility] [place] [facility] [address] [id number] [place] [address]- 3861 Sep, [facility] [place] [facility] [address] [id number] [place] [address]- 2395 Sep, [facility] [place] [facility] [address] [id number] [place] [address]- 4363 Sep, [facility] [place] [facility] [address] [id number] [place] 3965 Sep, [facility] [place] [facility] [address] [id number] [place] [address]- 1374 Sep, [facility] [place] [facility] [address] [id number] [place] [address]- 3659 Sep, [facility] [place] [facility] [address] [id number] [place] [address]- 9043 Sep, [facility] [place] [facility] [address] [id number] [place] [address]- 5127 Sep, [facility] [place] [facility] [address] [id number] [place] [address]- 6184 Sep, [facility] [place] [facility] [address] [id number] [place] [address]- 5763 August, [facility] [place] [facility] [address] [id number] [place] [address]- 8544 August, [facility] [place] [facility] [address] [id number] [place] [address]- 4321 August, [facility] [place] [facility] [address] [id number] [place] [address]- 8080 August, [facility] [place] [facility] [address] [id number] [place] [address]- 4326 August, [facility] [place] [facility] [address] [id number] [place] [address]- 2243 August, [facility] [place] [facility] [address] [id number], [place] [address]- 9872 Jul, [facility] [place] [facility] [address] [id number] [place] [address]- 9624 Jul, [facility] [place] [facility] [address] [id number] [place] [address]- 7361 Jul, [facility] [place] [facility] [address] [id number] [place] [address]- 2990 Jul, [facility] [place] [facility] [address] [id number], [place] [address]- 2312 07 Jul, 2013 [facility] [place] [facility] [address] [id number] [place] [address]- 2074 Jul, [facility] [place] [facility] [address] [id number] [place] [address]- 3105 Jun, [facility] [place] [facility] [address] [id number] [place] [address]- 0876 Jun, [facility] [place] [facility] [address] [id number] [place] [address]- 8044 May, [facility] [place] [facility] [address] [id number] [place] [address]- 0242 May, [facility] [place] [facility] [address] [facility] [place] [id number] [place] [address]- 9487 May, [facility] [place] [facility] [address] [id number] [place] [address]- 2374 May, [facility] [place] [facility] [address] [facility] [place] [id number] [place] [address]- 0493 Apr, [facility] [place] [facility] [address] [facility] [place] [id number] [place] [address]- 4477 Apr, [facility] [place] [facility] [address] [facility] [place] [id number] [place] [address]- 6729 Mar, [facility] [place] [facility] [address] [facility] [place] [place] [id number] [place] [address]- 6479 18 Mar, 2013 [facility] [place] [facility] [address] [id number], [place] [address]- 6196 17 Mar, 2013 [facility] [place] [facility] [address] [id number] [place] [address]- 0605 17 Mar, 2013 [facility] [place] [facility] [address] [facility] [place] [id number] [place] [address]- 9316 05 Mar, 2013 [facility] [place] [facility] [address] [facility] [place] [id number] [place] 3189 Mar, [facility] [place] [facility] [address] [id number] [place] [address]- 1398 Feb, [facility] [place] [facility] [address] [id number] [place] [address]- 9569 Feb, [facility] [place] [facility] [address] [id number] [place] [address]- 1597 Feb, [facility] [place] [facility] [address] [id number] [place] [address]- 9793 Feb, [facility] [place] [facility] [address] [id number] [place] [address]- 4238 Feb, [facility] [place] [facility] [address] [id number] [place] [address]- 3640 Feb, [facility] [place] [facility] [address] [id number] [place] [address]- 9581 Jan, [facility] [place] [facility] [address] [id number] [place] [address]- 2484 Jan, [facility] [place] [facility] [address] [id number] [place] [address]- 0509 Jan, [facility] [place] [facility] [address] [id number] [place] [address]- 3182 Jan, [facility] [place] [facility] [address] [id number] [place] [address]- 4981 Jan, [facility] [place] [facility] [address] [id number] [place] [address]- 1864 Jan, [facility] [place] [facility] [address] [id number] [place] [address]- 3923 Dec, [facility] [place] [facility] [address] [id number] [place] [address]- 4188 09 Dec, 2012 [facility] [place] [facility] [address] [id number] [place] [address]- 0446 16 Nov, 2012 [facility] [place] [facility] [address] [id number] [place] [address]- 7847 Nov, [facility] [place] [facility] [address] [id number] [place] [address]- 1232 Oct, [facility] [place] [facility] [address] [id number] [place] [address]- 8747 Oct, [facility] [place] [facility] [address] [id number] [place] 9586 Oct, [facility] [place] [facility] [address] [id number] [place] [address]- 3291 Oct, [facility] [place] [facility] [address] [id number] [place] [address]- 5909 Oct, [facility] [place] [facility] [address] [id number] [place] 7522 Oct, [facility] [place] [facility] [address] [id number] [place] [address]- 5525 Sep, [facility] [place] [facility] [address] [id number] [place] [address]- 2913 Sep, [facility] [place] [facility] [address] [id number] [place] [address]- 0976 Sep, [facility] [place] [facility] [address] [id number] [place] [address]- 3018 Sep, [facility] [place] [facility] [address] [id number] [place] [address]- 7513 August, [facility] [place] [facility] [address] [id number] [place] [address]- 6205 August, [facility] [place] [facility] [address] [id number] [place] 6646 August, [facility] [place] [facility] [address] [id number] [place] [address]- 7918 August, [facility] [place] [facility] [address] [id number] [place] [address]- 4165 August, [facility] [place] [facility] [address] [id number] [place] [address]- 7823 Jul, [facility] [place] [facility] [address] [id number] [place] [address]- 0194 Jul, [facility] [address] [id number] [place] [address]- 7007 Jul, [facility] [place] [facility] [address] [id number] [place] [address]- 8866 Jul, [facility] [address] [id number] [place] [address]- 8503 Jul, [facility] [address] [id number] [place] [address]- 4029 Jul, [facility] [address] [id number] [place] [address]- 2782 Jul, [facility] [place] [facility] [address] [id number] [place] [address]- 5775 Jul, [facility] [address] [id number] [place] [address]- 0249 Jul, [facility] [address] [id number] [place] [address]- 6390 Jul, [facility] [address] [id number] [id number] Jun, [facility] [place] [facility] [address] [id number] [place] [address]- 1480 Jun, [facility] [address] [id number], [place] [address] Jun, [facility] [address] [id number], [place] [address] Jun, [facility] [address] [id number] [place] [address] Jun, [facility] [address] [id number], [place] [address] May, [facility] [place] [facility] [address] [id number] [place] [address] May, [facility] [address] [id number] [place] [address] May, [facility] [address] [id number] [place] [address] Apr, [facility] [address] [id number] [place] [address] Apr, [facility] [address] [id number] [place] [address] Apr, [facility] [address] [id number] [place] [address] Apr, [facility] [address] [id number] [place] [address] Apr, [facility] [address] [id number] [place] [address] Apr, [facility] [address] [id number] [place] [address] Mar, [facility] [address] [id number] [place] [address] Mar, [facility] [address] [id number] [place] [address] Mar, [facility] [address] [id number] [place] [address] Mar, [facility] [place] [facility] [address] [id number] [place] [address] Feb, [facility] [place] [facility] [address] [id number] [place] [address] Feb, [facility] [place] [facility] [address] [id number] [place] [address] Feb, [facility] [place] [facility] [address] [id number], [place] [address] Feb, [facility] [place] [facility] [address] [id number] [place] [address] Feb, [facility] [place] [facility] [address] [id number], [place] [address] Feb, [facility] [place] [facility] [address] [facility] [place] [id number] [place] [address] Feb, [facility] [place] [facility] [address] [id number], [place] [address] Feb, [facility] [place] [facility] [address] [id number] [place] [address] Feb, [facility] [place] [facility] [address] [id number] [place] [address] Feb, [facility] [place] [facility] [address] [id number], [place] [address] Feb, [facility] [place] [facility] [address] [id number], [place] [address] Feb, [facility] [place] [facility] [address] [id number], [place] [address] Feb, [facility] [place] [facility] [address] [facility] [place] [place] [id number], [place] [address] Feb, [facility] [place] [facility] [address] [id number], [place] [address] Feb, [facility] [place] [facility] [address] [facility] [place] [place] [id number], [place] [address] Feb, [facility] [place] [facility] [address] [id number], [place] [address] Jan, [facility] [place] [facility] [address] [id number] [place] [address] Jan, [facility] [place] [facility] [address] [facility] [place] [place] [id number] [place] [address] Jan, [facility] [place] [facility] [address] [id number] [place] [address] 31 Jan, 2012 [facility] [place] [facility] [address] [id number] [place] [address] 30 Jan, 2012 [facility] [place] [facility] [address] [id number] [place] [address] Jan, [facility] [place] [facility] [address] [id number] [place] [address] 25 Jan, 2012 [facility] [place] [facility] [address] [id number] [place] [address] 16 Jan, 2012 [facility] [place] [facility] [address] [id number] [place] [address] 16 Jan, 2012 [facility] [place] [facility] [address] [id number] [place] [address] 15 Jan, 2012 [facility] [place] [facility] [address] [id number] [place] [address] 15 Jan, 2012 [facility] [place] [facility] [address] [id number] [place] [address] Jan, [facility] [place] [facility] [address] [id number] [place] [address]- [address] 26 Dec, 2011 [facility] [place] [facility] [address] [id number] [place] [address] 26 Sep, 2011 [facility] [place] [facility] [address] [id number] [place] [address] 24 Sep, 2011 [facility] [place] [facility] [address] [id number] [place] [address] 23 Sep, 2011 [facility] [place] [facility] [address] [id number] [place] [address] 22 Sep, 2011 [facility] [place] [facility] [address] [id number] [place] [address] 21 Sep, 2011 [facility] [place] [facility] [address] [id number] [place] [address] 20 Sep, 2011 [facility] [place] [facility] [address] [id number] [place] [address] 20 Dec, 2011 [facility] [place] [facility] [address] [id number] [place] [address] 07 Dec, 2011 [facility] [place] [facility] [address] [id number] [place] [address] 06 Dec, 2011 [facility] [place] [facility] [address] [id number] [place] [address] 06 Dec, 2011 [facility] [place] [facility] [address] [id number] [place] [address] 05 Dec, 2011 [facility] [place] [facility] [address] [id number] [place] [address] 23 Nov, 2011 [facility] [place] [facility] [address] [id number] [place] [address] 17 Nov, 2011 [facility] [place] [facility] [address] [id number] [place] [address] 13 Nov, 2011 [facility] [place] [facility] [address] [id number] [place] [address] Nov, [facility] [place] [facility] [address] [id number] [place] [address] Nov, [facility] [place] [facility] [address] [id number] [place] [address] Nov, [facility] [place] [facility] [address] [id number] [place] [address] Nov, [facility] [place] [facility] [address] [id number] [place] [address] Nov, [facility] [place] [facility] [address] [id number] [place] [address] 97[address] Oct, [facility] [place] [facility] [address] [id number] [place] [address] 89[address] Oct, [facility] [place] [facility] [address] [id number] [place] [address] 18[address] Oct, [facility] [place] [facility] [address] [id number] [place] [address] Oct, [facility] [place] [facility] [address] [id number] [place] [address] 9210 Oct, [facility] [place] [facility] [address] [id number] [place] [address] Oct, [facility] [place] [facility] [address] [id number] [place] [address] 28[address] Oct, [facility] [place] [facility] [address] [id number] [place] [address] 67[address] Sep, [facility] [place] [facility] [address] [id number] [place] [address] Sep, [facility] [place] [facility] [address] [id number] [place] [address] August, [facility] [place] [facility] [address] [id number] [place] [address] August, [facility] [place] [facility] [address] [id number] [place] [address] August, [facility] [place] [facility] [address] [id number] [place] [address]161 August, [facility] [place] [facility] [address] [id number] [place] [address] 8733 Jul, [facility] [place] [facility] [address] [id number] [place] [address] 2074 Jul, [facility] [place] [facility] [address] [id number] [place] [address] Jul, [facility] [place] [facility] [address] [id number] [place] [address] 7689 Jul, [facility] [place] [facility] [address] [id number] [place] [address] Jul, [facility] [place] [facility] [address] [id number] [place] [address] Jul, [facility] [place] [facility] [address] [id number] [place] [address] 8154 Jul, [facility] [place] [facility] [address] [id number] [place] [address] 4[address] Jul, [facility] [place] [facility] [address] [id number] [place] [address] 0780 Jul, [facility] [place] [facility] [address] [id number] [place] [address]88 23 Jun, 2011 [facility] [place] [facility] [address] [id number] [place] [address] 19 Jun, 2011 [facility] [place] [facility] [address] [facility] [place] [id number] [place] [address] 15 Jun, 2011 [facility] [place] [facility] [address] [id number] [place] [address] 14 Jun, 2011 [facility] [place] [facility] [address] [id number] [place] [address] 9539 Jun, [facility] [place] [facility] [address] [facility] [place] [id number] [place] [address]- [address] Jun, [facility] [place] [facility] [address] [facility] [place] [id number] [place] [address]- [address]809 Jun, [facility] [place] [facility] [address] [id number] [place] [address]34 May, [facility] [place] [facility] [address] [id number] [place] [address] 1441 24 May, 2011 [facility] [place] [facility] [address] [id number] [place] [address]341 May, [facility] [place] [facility] [address] [id number] [place] [address] May, [facility] [place] [facility] [address] [facility] [id number], [place] [address] May, [facility] [address] [id number] [place] [address]92 Apr, [facility] [place] [facility] [address] [id number] [place] [address] 1239 Apr, [facility] [place] [facility] [address] [facility] [place] [id number] [place] [address]- [address] Apr, [facility] [place] [facility] [address] [id number] [place] [address] 8308 Apr, [facility] [address] [id number] [place] [address] 2804 Apr, [facility] [place] [facility] [address] [id number] [place] [address] 22[address] Mar, [facility] [address] [facility] [place] [id number] [place] [address]797 Mar, [facility] [place] [facility] [address] [id number] [place] [address] 9383 Mar, [facility] [place] [facility] [address] [facility] [place] [id number] [place] [address] 5431 Mar, [facility] [place] [facility] [address] [facility] [place] [id number] [place] [address] 1715 Mar, [facility] [place] [facility] [address] [facility] [place] [id number] [place] [address]- 6224 Mar, [facility] [place] [facility] [address] [id number] [place] [address]- 0297 Mar, [facility] [place] [facility] [address] [id number] [place] [address]- 6378 Feb, [facility] [place] [facility] [address] [facility] [place] [id number] [place] [address]221 Feb, [facility] [place] [facility] [address] [facility] [place] [id number] [place] [address]- 6667 08 Feb, 2011 [facility] [place] [facility] [address] [id number] [place] [address]- 5430 Feb, [facility] [place] [facility] [address] [id number] [place] [address]- 5910 Jan, [facility] [place] [facility] [address] [id number] [place] [address]- 6236 Jan, [facility] [place] [facility] [address] [id number] [place] [address]- 3376 Jan, [facility] [place] [facility] [address] [id number] [place] [address] 1983 Jan, [facility] [place] [facility] [address] [id number] [place] [address]- 4265 Nov, [facility] [place] [facility] [address] [id number] [place] [address]- 8006 Mar, [facility] [place] [facility] [address] [id number] [place] [address]- 2292 Mar, [facility] [place] [facility] [address] [id number] [place] [address]- 4716 Mar, [facility] [place] [facility] [address] [id number] [place] [address]- 1119 Mar, [facility] [place] [facility] [address] [facility] [place] [id number] [place] [address]- 8998 Mar, [facility] [place] [facility] [address] [id number] [place] [address]- 2255 Mar, [facility] [place] [facility] [address] [id number] [place] [address] 25[address] Feb, [facility] [place] [facility] [address] [id number] [place] [address]- 5626 Feb, [facility] [place] [facility] [address] [id number] [place] [address]- 1816 Jan, [facility] [place] [facility] [address] [id number] [place] [address]- 5838 14 Jan, 2009 [facility] [address] [facility] [place] [place] [id number] [place] [address]69 Jan, IMMUNIZATIONS No Known Immunizations SOCIAL HISTORY Never Assessed REASON FOR VISIT FYI only PLAN OF CARE VITAL SIGNS MEDICATIONS Unknown [...] & 2007 Surgical History Bladder surgery [facility] 03/2016 Hospitalization History Surgeries Only Hospitalization History 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
--- OUTSIDE RECORDS SUMMARY | 2018-05-29 08:22 | XMS REPORT ---
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 Name Role Phone IMANI VILLASEÑOR Unavailable PROBLEMS Type Condition ICD9-CM Code VED30-EN Code Onset Dates Condition Status SNOMED Code Problem Long-term use of high-risk medication Z79.899 Active 039553194 Problem Abnormal chest CT R93.8 Active 901704918 Problem Low back pain M54.5 Active 048008121 Problem Generalized anxiety disorder F41.1 Active 62816494 Problem Dysthymic disorder F34.1 Active 67342107 Problem Coronary artery disease involving [place] coronary artery of [place] heart, angina presence unspecified I25.10 Active 0209636984214 Problem Depressed F32.9 Active 16648937 Problem Fibromyalgia M79.7 Active 143132347 Problem Hypothyroid E03.9 Active 61354856 Problem Essential (primary) hypertension I10 Active 83854994 Problem Insomnia G47.00 Active 490119292 Problem Vitamin D deficiency E55.9 Active 08541497 Problem Anemia in chronic kidney disease D63.1 Active [id number] Problem Chronic kidney disease, unspecified N18.9 Active 495284695 Problem Body mass index (BMI) of 40.0-44.9 in adult Z68.41 Active 317445445 Problem Stage 3 chronic kidney disease N18.3 Active 677161448 Problem Restless leg G25.81 Active 07532634 Problem Palpitations R00.2 Active 16049937 Problem Asthma J45.909 Active 611466561 Problem Primary osteoarthritis of left knee M17.12 Active 751245102 Problem Bipolar disorder, current episode manic without psychotic features F31.10 Active 247797395 Problem Mood disorder F39 Active 35496664 Problem Degenerative tear of medial meniscus of left knee M23.204 Active 110056164 Problem History of colon polyps Z86.010 Active 116842342 Problem Asthma with acute exacerbation in adult J45.901 Active 140353843 Problem Chronic kidney disease, stage 4 (severe) N18.4 Active 232189313 Problem Functional diarrhea K59.1 Active 69346603 Problem Hypokalemia E87.6 Active 33158877 Problem Mixed stress and urge urinary incontinence N39.46 Active 546233686 Problem History of anemia Z86.2 Active 093856129 Problem Other seasonal allergic rhinitis J30.2 Active 739574825 ALLERGIES No Known Allergies ENCOUNTERS Encounter Location Date Diagnosis [facility] [id number] [place] [address] 88086- 5568 Sep, [facility] [id number] [place] [address] 41700- 3071 August, [facility] [address] 87771- 8965 August, [facility] [id number] [place] [address] 06383- 8371 August, [facility] [id number] [place] [address] 40867- 0679 August, Abnormal chest CT R93.8 [place] [address] 44069- 2748 August, Generalized anxiety disorder F41.1 and Major depressive disorder, recurrent episode with anxious distress F33.9 [facility] [id number] [place] [address] 38910- [address] August, [address] R93.8 [facility] [id number] [place] [address] 20765- 4666 Jul, [facility] [id number] [place] [address] 09595- 8373 Jul, Chronic kidney disease, stage 4 (severe) N18.4 [facility] [id number] [place] [address] 27471- 6710 Jul, [facility] [address] 45227- 6610 Jul, Restless leg G25.81 ; Mixed stress and urge urinary incontinence N39.46 and Fibromyalgia M79.7 [facility] [id number] [place] [address] 12368- 6743 Jul, Chronic kidney disease, stage 4 (severe) N18.4 [facility] [id number] [place] [address] 22116- 3457 Jun, Orthostatic hypotension I95.1 ; Chronic kidney disease, stage 4 (severe) N18.4 ; Chest wall discomfort R07.89 and Body mass index (BMI) of 40.0-44.9 in adult Z68.41 [place] [address] 76767- 2695 Jun, [facility] [address] 40470- 4379 Jun, Orthostatic hypotension I95.1 [facility] [address] 03590- 9114 Jun, [facility] [id number] [place] [address] 09753 -0733 Jun, Orthostatic hypotension I95.1 ; Dysuria R30.0 and Acute cystitis without hematuria N30.00 [facility] [id number] [place] [address] 53226- 5589 Jun, [facility] [id number] [place] [address] 20503- 1737 Jun, Chronic kidney disease, stage 4 (severe) N18.4 [facility] [id number] [place] [address] 60079- 1576 Jun, Fibromyalgia M79.7 [facility] [id number] [place] [address] 91225- 5653 Jun, [facility] [id number] [place] [address] 48665- 5153 Jun, [facility] [address] [address] [address] May, [address] R93.8 and Stage 3 chronic kidney disease N18.3 [facility] [id number] [place] [address] 31125- 9513 May, Chronic kidney disease, stage 4 (severe) N18.4 [place] [id number] [place] [address] 46463- 1739 May, Chronic kidney disease, stage 4 (severe) N18.4 [place] [id number] [place] [address] 04667- [address] May, [address] R93.8 [place] [id number] [place] [address] 32294- 3130 May, [place] [id number] [place] [address] 95006- 2297 May, [place] [id number] [place] [address] 81111- 7955 May, Generalized anxiety disorder F41.1 and Major depressive disorder, recurrent episode with anxious distress F33.9 [place] [address] [place] [address] 50958- 7891 May, Mood disorder F39 [place] [id number] [place] [address] 37576- 1259 Apr, [place] [id number] [place] [address] 08165- 5951 Apr, Infected skin lesion L08.9 and Muscle strain of right shoulder region, initial encounter S46.911A [place] [address] [place] [address] 18864- 0181 Apr, Generalized anxiety disorder F41.1 and Major depressive disorder, recurrent episode with anxious distress F33.9 [place] [id number] [place] [address] 53863- 2121 Apr, [facility] [address] [address]- 9341 Apr, Recent urinary tract infection Z87.440 and Hypothyroid E03.9 [facility] [address] [place] [address] 97407- 8076 Apr, Generalized anxiety disorder F41.1 and Major depressive disorder, recurrent episode with anxious distress F33.9 [facility] [address] [place] [address] 78740- 0735 Apr, Recent urinary tract infection Z87.440 [place] [id number] [place] [address] 33933- 9999 Mar, [facility] [id number] [place] [address] 79771 -4963 Mar, Dysuria R30.0 ; Acute cystitis without hematuria N30.00 and BMI 40.0-44.9, adult Z68.41 [facility] [address] [place] [address] 96169- 8284 Mar, [facility] [id number] [place] [address] 52343- 6579 Mar, [place] [id number] [place] [address] 74153- 9665 Mar, Generalized anxiety disorder F41.1 and Major depressive disorder, recurrent episode with anxious distress F33.9 [facility] [address] [place] [address] 77242- 6737 Feb, Conjunctivitis, bacterial H10.9 [facility] [address] [place] [address] 63796- 3183 Feb, [facility] [id number] [place] [address] 71468 -4528 Feb, Conjunctivitis, bacterial H10.9 [facility] [id number] [place] [address] 48829- 2932 Feb, [facility] [id number] [place] [address] 08989 -7811 Feb, Dysuria R30.0 ; Acute cystitis N30.00 and BMI 40.0-44.9, adult Z68.41 [facility] [id number] [place] [address] 88778- 0528 Feb, [facility] [address] 03506- 2995 Feb, Generalized anxiety disorder F41.1 and Major depressive disorder, recurrent episode with anxious distress F33.9 [place] [address] 37578- 6755 Feb, Mood disorder F39 and BMI 40.0-44.9, adult Z68.41 [facility] [id number] [place] [address] 71333- 6283 Jan, [facility] [id number] [place] [address] 35592- 3440 Jan, [facility] [id number] [place] [address] 99666- 6809 Jan, Hypothyroid E03.9 [facility] [id number] [place] [address] 13261- 7323 Jan, [facility] [id number] [place] [address] 96651- 0972 Jan, Chronic kidney disease, unspecified N18.9 ; Hypokalemia E87.6 ; Essential (primary) hypertension I10 ; Fibromyalgia M79.7 ; Coronary artery disease involving [place] coronary artery of [place] heart, angina presence unspecified I25.10 ; Hypothyroid E03.9 and Encounter for immunization Z23 [facility] [id number] [place] [address] 52989- 3993 Jan, Hypothyroid E03.9 [facility] [address] 07032- 2648 Jan, [facility] [address] [address]- 1421 28 Dec, 2016 Vitamin D deficiency E55.9 [facility] [id number] [place] [address] 18452- 5107 28 Dec, 2016 Primary osteoarthritis of left knee M17.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 [facility] [id number] [place] [address] 09686- 2039 19 Dec, 2016 Fibromyalgia M79.7 [facility] [id number] [place] [address] 09488- 9529 18 Dec, 2016 Mood disorder F39 [place] [id number] [place] [address] 71553- 3866 13 Dec, 2016 [place] [id number] [place] [address] 55313- 9754 Dec, 2016 Generalized anxiety disorder F41.1 and Major depressive disorder, recurrent episode with anxious distress F33.9 [place] [id number] [place] [address] 47635- 3505 11 Dec, 2016 [place] [id number] [place] [address] 60023- 7083 08 Dec, 2016 Streptococcal meningitis G00.2 [facility] [address] [address]- 2544 07 Dec, 2016 Streptococcal meningitis G00.2 [facility] [address] [address]- 2326 07 Dec, 2016 [facility] [id number] [place] [address] 04744- 2543 Dec, 2016 Streptococcal meningitis G00.2 [facility] [address] [address]- 2546 Dec, 2016 [facility] [id number] [place] [address] 49655- 3912 06 Dec, 2016 Major depressive disorder, recurrent episode with anxious distress F33.9 [facility] [address], [place] [address]- 5188 Nov, Fever, unspecified fever cause R50.9 [facility] [address], [place] [address]- 2142 Nov, [place] [id number] [place] [address] 39618- 8592 Nov, Hypothyroid E03.9 [facility] [id number] [place] [address] 20370- 7407 Nov, Generalized anxiety disorder F41.1 and Major depressive disorder, recurrent episode with anxious distress F33.9 [place] [id number] [place] [address] 33102- 0409 Nov, [facility] [id number] [place] [address] [id number] Oct, Dental examination Z01.20 [place] [id number] [place] [address] 75143- 4524 Oct, Generalized anxiety disorder F41.1 and Major depressive disorder, recurrent episode with anxious distress F33.9 [place] [address] [address]- 7319 Oct, Chronic kidney disease, stage 4 (severe) N18.4 [place] [id number] [place] [address] 96446- 0316 Oct, [facility] [id number] [place] [address] 99355- 2370 Oct, Fibromyalgia M79.7 [place] [id number] [place] [address] 61999- 2429 Oct, [place] [id number] [place] [address] 00821- 8457 Oct, Generalized anxiety disorder F41.1 ; Major depressive disorder, recurrent episode with anxious distress F33.9 and Bipolar disorder, current episode manic without psychotic features F31.10 [place] [address] [address]- 3919 Sep, [place] [address] [address]- 8556 Sep, [place] [address], [place] [address]- 2080 15 Sep, 2016 Vitamin D deficiency E55.9 [place] [address], [place] [address]- 5661 14 Sep, 2016 Vitamin D deficiency E55.9 [place] [id number] [place] [address] 82888- 7717 07 Sep, 2016 [place] [address] [address]- 5615 07 Sep, 2016 Chronic kidney disease, stage [...] examination Z12.39 and Low back pain M54.5 [place] [address] [address]- 4133 August, Generalized anxiety disorder F41.1 and Major depressive disorder, recurrent episode with anxious distress F33.9 [place] [address] [address]- 3077 August, Generalized anxiety disorder F41.1 and Major depressive disorder, recurrent episode with anxious distress F33.9 [place] [address], [place] [address]- 2549 August, Fibromyalgia M79.7 [place] [id number] [place] [address] 93782- 8818 Jul, Generalized anxiety disorder F41.1 and Major depressive disorder, recurrent episode with anxious distress F33.9 [place] [id number] [place] [address] 44388- 9025 Jul, Fibromyalgia M79.7 [place] [id number] [place] [address] 05318- 1192 Jul, Generalized anxiety disorder F41.1 [place] [id number] [place] [address] 49147- 9579 May, [place] [id number] [place] [address] 72354- 6921 May, Hypothyroid E03.9 [place] [id number] [place] [address] 71606- 4535 May, Chronic kidney disease, stage 4 [...] [place], angina presence unspecified I25.10 [place] [id number] [place] [address] 71507- 3725 May, Vitamin D deficiency, unspecified E55.9 [place] [address] [place] [address] 60666- 9248 May, Generalized anxiety disorder F41.1 and Major depressive disorder, recurrent episode with anxious distress F33.9 [place] [address] [place] [address] 08824- 0004 Apr, Pain in right knee M25.561 and Pain in left knee M25.562 [place] [address] [place] [address] 96207- 2353 Apr, [facility] [address], [place] [address]- 5030 Apr, [facility] [id number] [place] [address] 07753- 6369 Apr, [facility] [id number] [place] [address] 99640- 9226 Mar, Generalized anxiety disorder F41.1 and Major depressive disorder, recurrent episode with anxious distress F33.9 [facility] [id number] [place] [address] 82087- 8619 Mar, Generalized anxiety disorder F41.1 and Major depressive disorder, recurrent episode with anxious distress F33.9 [place] [id number] [place] [address] 20204- 4472 Mar, [place] [id number] [place] [address] 49962- 0696 Mar, [place] [id number] [place] [address] 01112- 6046 Mar, [facility] [id number] [place] [address] 55877- 0433 Mar, Asthma J45.909 and Fibromyalgia M79.7 [place] [address] [place] [address] 56081- 7147 Mar, Chronic kidney disease, stage 4 (severe) N18.4 ; Vitamin D deficiency E55.9 and Essential (primary) hypertension I10 [place] [address] [place] [address] 18961- 0701 Feb, [place] [id number] [place] [address] 73776- 2659 Feb, Dysuria R30.0 ; Mixed stress and urge urinary incontinence N39.46 ; Fibromyalgia M79.7 and Chronic kidney disease, stage IV (severe) N18.4 [place] [id number] [place] [address] 18201- 3977 Feb, Chronic kidney disease, stage 4 (severe) N18.4 [facility] [id number] [place] [address] 76422- 3849 Feb, Chronic kidney disease, stage 4 (severe) N18.4 [facility] [id number] [place] [address] 25517- 2121 Feb, [facility] [address] 76483- 9480 Feb, Vitamin D deficiency, unspecified E55.9 [facility] [id number] [place] [address] 21468- 9748 Jan, [facility] [id number] [place] [address] 04361- 1020 Jan, [facility] [id number] [place] [address] 39404- 9485 Dec, [facility] [id number] [place] [address] 53973- 4373 Dec, Chronic kidney disease, stage 4 (severe) N18.4 [facility] [id number] [place] [address] 58712- 9577 Dec, Dysthymic disorder F34.1 and Generalized anxiety disorder F41.1 [place] [id number] [place] [address] 70381- 3835 Dec, [facility] [id number] [place] [address] 73166- 9873 Dec, [facility] [id number] [place] [address] 82442- 3532 Dec, Dysthymic disorder F34.1 and Generalized anxiety disorder F41.1 [facility] [address] [place] [address] 10558- 1530 Dec, Dysuria R30.0 ; Chronic kidney disease, stage 4 (severe) N18.4 ; Hypertension I10 ; Dyspepsia R10.13 ; Yeast dermatitis B37.2 ; Palpitations R00.2 ; Hypothyroid E03.9 ; Functional diarrhea K59.1 and Other seasonal allergic rhinitis J30.2 [facility] [address] 22171 -4559 Dec, [facility] [address] 46918 -5209 Nov, Dysuria R30.0 and Stress incontinence N39.3 [place] [address] 41398- 3339 Nov, [place] [address] 40109- 6717 Nov, [place] [address] 61359- 0827 Nov, Osteoarthritis of knees, bilateral M17.0 [place] [address] 53068- 5255 Nov, Dysthymic disorder F34.1 and Generalized anxiety disorder F41.1 [place] [address] 66985- 8699 Nov, [place] [address] 63885- 3198 Nov, [place] [address] 12429- 3121 Nov, Urgency of urination R39.15 [place] [address] 24726- 1106 Nov, [place] [address] 53064- 8202 Nov, Chronic kidney disease, stage 4 (severe) N18.4 [place] [address] 44860- 6564 Oct, Hypertension I10 ; Coronary artery disease involving [place] coronary artery of [place] heart, angina presence unspecified I25.10 ; Palpitations R00.2 ; Hypothyroid E03.9 ; Right foot pain M79.671 ; Functional diarrhea K59.1 and Other seasonal allergic rhinitis J30.2 [place] [id number] [place] [address] 59082- 9288 Oct, Dysthymic disorder F34.1 and Generalized anxiety disorder F41.1 [place] [address] 28241- 1785 Sep, [place] [address] 98667- 1277 Sep, [place] [address] 06581- 3189 Sep, [place] [address] 27199- 9350 Sep, [place] [address] 48045- 2688 Sep, [place] [id number] [place] [address] 07758- 2664 Sep, Dysthymic disorder F34.1 and Generalized anxiety disorder F41.1 [place] [address] [place] [address] 46736- 4270 Sep, Asthma with acute exacerbation in adult J45.901 ; Dysuria R30.0 ; Chronic kidney disease, stage 4 (severe) N18.4 and History of anemia Z86.2 [place] [address] [place] [address] 10439- 9928 Sep, Generalized anxiety disorder F41.1 and Dysthymic disorder F34.1 [place] [address] [place] [address] 72992- 1077 August, Screening breast examination Z12.39 and Acute recurrent maxillary sinusitis J01.[address] [address]- [address] August, Osteoarthritis of knees, bilateral M17.0 [place] [id number] [place] [address] 81298- 5882 August, Chronic kidney disease, stage 4 (severe) N18.4 ; Acute non- recurrent maxillary sinusitis J01.00 ; Urinary problem R39.89 ; Bowel habit changes R19.4 ; Functional diarrhea K59.1 and History of colon polyps Z86.010 [place] [id number] [place] [address] 32837- 8339 Jul, Dysthymic disorder F34.1 and Generalized anxiety disorder F41.1 [place] [id number] [place] [address] 92380- 0017 Jul, [place] [id number] [place] [address] 30157- 3542 Jul, Dysthymic disorder F34.1 ; Generalized anxiety disorder F41.1 and retirement use of drug Z79.899 [place] [id number] [place] [address] 17380- 5739 Jul, [place] [id number] [place] [address] 69185- 6829 Jun, [place] [id number] [place] [address] 45078- 5176 Jun, [place] [id number] [place] [address] 33272- 1549 May, [place] [id number] [place], [place] [address] 86477- 0017 May, Dysthymic disorder F34.1 and Generalized anxiety disorder F41.1 [place] [id number] [place] [address] 90171- 7081 Apr, Kidney disease N28.9 [place] [id number] [place] [address] 20069- 8145 Apr, Generalized anxiety disorder F41.1 and Dysthymic disorder F34.1 [place] [id number] [place] [address] 54060- 2861 Apr, Chronic kidney disease, stage 4 (severe) N18.4 [place] [id number] [place] [address] 43271- 7157 Apr, Generalized anxiety disorder F41.1 ; Major depression, recurrent F33.9 and Sleep disturbance G47.9 [place] [address] 73389- 4785 Mar, Generalized anxiety disorder F41.1 and Dysthymic disorder F34.1 [place] [address] 47017- 9281 Mar, Generalized anxiety disorder F41.1 ; Dysthymic disorder F34.1 and Insomnia G47.00 [place] [address] 99368- 3140 Mar, [place] [address] 60996- 3383 Mar, [place] [address] 81323- 8174 Mar, Osteoarthritis of knees, bilateral M17.0 [place] [address] 58046- 4219 Mar, Hypertension I10 ; Hypothyroid E03.9 ; Dysthymic disorder F34.1 ; Chronic kidney disease, stage 4 (severe) N18.4 and Nausea & vomiting R11.2 [place] [id number] [place] [address] 11276- 5160 Mar, Generalized anxiety disorder F41.1 ; Dysthymic disorder F34.1 and Insomnia G47.00 [place] [id number] [place] [address] 77764- 8786 Mar, Dehydration E86.0 ; Chronic kidney disease, stage 4 (severe ) N18.4 and Nausea & vomiting R11.2 [facility] [address] [address] Mar, Gastroenteritis K52.9 [facility] [id number] [place] [address] 27169- 0295 Mar, [facility] [id number] [place] [address] 95161- 4646 Mar, [place] [id number] [place] [address] 90630- 1957 Feb, Dysthymic disorder F34.1 and Generalized anxiety disorder F41.1 [place] [id number] [place] [address] 30610- 2986 Jan, UTI (urinary tract infection) N39.0 ; Asthma J45.909 ; Coronary artery disease involving [place] coronary artery of [place] heart, angina presence unspecified I25.10 ; Hypertension I10 ; Hypothyroid E03.9 ; Vitamin D deficiency E55.9 ; Insomnia G47.00 ; Palpitations R00.2 ; Depressed F32.9 ; Restless leg G25.81 and Anxiety F41.9 [place] [id number] [place] [address] 60664- 2545 Jan, Dysthymic disorder F34.1 and Generalized anxiety disorder F41.1 [place] [id number] [place] [address] 95173- 4549 Jan, [place] [id number] [place] [address] 59488- 6755 Dec, [place] [id number] [place] [address] 28383- 4913 28 Dec, 2014 Alkalosis 276.3 ; Chronic kidney disease, 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.4 ; Hyperpotassemia 276.7 ; Secondary hyperparathyroidism, renal 588.81 ; Proteinuria 791.0 ; Unspecified vitamin D deficiency 268.9 ; Anemia in chronic kidney disease 285.21 ; Other and unspecified hyperlipidemia 272.4 ; Hypertension, essential, benign 401.1 and Chronic kidney disease (CKD), stage III (moderate) 585.3 [place] [address] [address]- 6047 Dec, [place] [id number] [place] [address] 45093- 1108 Dec, Depressive disorder, not elsewhere classified 311 and Generalized anxiety disorder 300.02 [place] [id number] [place] [address] 73524- 0988 Dec, [place] [id number] [place] [address] 50825- 8342 Dec, [place] [id number] [place] [address] 75489- 9363 Nov, Depressive disorder, not elsewhere classified 311 and Generalized anxiety disorder 300.02 [place] [id number] [place] [address] 09317- 7017 Nov, Arthritis of both knees 716.96 [place] [id number] [place] [address] 56639- 2129 Nov, PAF (paroxysmal atrial fibrillation) 427.31 ; CAD (coronary artery disease) 414.00 ; Chest pain 786.50 and Chronic kidney disease (CKD) stage G4/A1, severely decreased glomerular filtration rate (GFR) between 15-29 mL/min/1.73 square meter and albuminuria creatinine ratio less than 30 mg/g 585.4 [place] [id number] [place] [address] 04357- 3512 Oct, Coronary atherosclerosis of unspecified type of vessel, [place] or graft 414.00 ; Chronic kidney disease, 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.4 ; Hypertension 401.9 and Edema 782.3 [place] [id number] [place] [address] 35011- 6672 Oct, Depressive disorder, not elsewhere classified 311 and Generalized anxiety disorder 300.02 [place] [id number] [place] [address] 76866- 9402 Oct, Depressive disorder, not elsewhere classified 311 and Generalized anxiety disorder 300.02 [facility] [id number] [place] [address] 71182- 1072 Oct, [facility] [id number] [place] [address] 73898- 7656 Oct, [facility] [id number] [place] [address] 59939- 6808 Sep, [facility] [address] 28358- 3211 Sep, Chronic kidney disease, 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.4 [facility] [address] 66920- 8737 Sep, [facility] [id number] [place] [address] 92239- 2200 Sep, Coronary atherosclerosis of unspecified type of vessel, [place] or graft 414.00 ; Hypertension 401.9 ; Edema 782.3 and Hypothyroidism 244.9 [facility] [id number] [place] [address] 70750- 3764 Sep, Coronary atherosclerosis of unspecified type of vessel, [place] or graft 414.00 ; Hypertension 401.9 ; Fibromyalgia 729.1 ; Edema 782.3 ; Hypothyroidism 244.9 and Anemia 285.9 [place] [id number] [place] [address] 77155- 4114 Sep, Anxiety disorder, unspecified 300.00 and Depressive disorder , not elsewhere classified 311 [facility] [id number] [place] [address] 20076- 6581 Sep, [facility] [id number] [place] [address] 60964- 2756 August, Generalized anxiety disorder 300.02 [facility] [id number] [place] [address] 32935- 4741 August, Closed fracture of lateral malleolus 824.2 [facility] [id number] [place] [address] 60249- 7980 Jul, [facility] [place] [facility] [address] [id number] [place] [address]- 8756 13 Jul, 2014 [facility] [place] [facility] [address] [id number] [place] [address]- 2991 Jun, [facility] [place] [facility] [address] [id number] [place] [address]- 3518 Jun, [facility] [place] [facility] [address] [id number] [place] [address]- 1939 Jun, [facility] [place] [facility] [address] [id number] [place] [address]- 7641 Jun, [facility] [place] [facility] [address] [id number] [place] [address]- 8382 Jun, [facility] [place] [facility] [address] [facility] [id number] [place] [address]- 5947 Jun, [facility] [place] [facility] [address] [id number] [place] [address]- 0334 May, [facility] [place] [facility] [address] [id number] [place] [address]- 8132 May, 2014 [facility] [place] [facility] [address] [facility] [id number] [place] [address]- 3955 18 May, 2014 [facility] [place] [facility] [address] [facility] [id number] [address]- 1791 18 May, 2014 [facility] [place] [facility] [address] [id number] [address]- 1378 16 May, 2014 [facility] [place] [facility] [address] [id number] [place] [address]- 9492 16 May, 2014 [facility] [place] [facility] [address] [facility] [id number] [place] [address]- 2715 13 May, 2014 [facility] [place] [facility] [address] [facility] [id number], [place] [address]- 6538 13 May, 2014 [facility] [place] [facility] [address] [id number] [place] [address]- 0489 10 May, 2014 [facility] [place] [facility] [address] [id number] [place] [address]- 7238 10 May, 2014 [facility] [place] [facility] [address] [id number] [place] [address]- 2187 Apr, [facility] [place] [facility] [address] [id number] [place] [address]- 5557 Apr, [facility] [place] [facility] [address] [id number] [place] [address]- 2083 Mar, [facility] [place] [facility] [address] [id number] [place] [address]- 9660 Mar, [facility] [place] [facility] [address] [id number] [place] [address]- 9879 Mar, [facility] [place] [facility] [address] [id number] [place] [address]- 3649 Mar, [facility] [place] [facility] [address] [id number] [place] [address]- 7756 Mar, [facility] [place] [facility] [address] [id number] [place] [address]- 0138 Mar, [facility] [place] [facility] [address] [id number] [place] [address]- 6620 Mar, [facility] [place] [facility] [address] [id number] [place] [address]- 3498 Feb, [facility] [place] [facility] [address] [id number] [place] [address]- 8404 Feb, [facility] [place] [facility] [address] [id number] [place] [address]- 0120 Feb, [facility] [place] [facility] [address] [id number] [place] [address]- 1746 Jan, [facility] [place] [facility] [address] [id number] [place] [address]- 9934 Jan, [facility] [place] [facility] [address] [id number] [place] [address]- 1609 Jan, [facility] [place] [facility] [address] [id number] [place] [address]- 4457 Jan, [facility] [place] [facility] [address] [id number] [place] [address]- 8140 Jan, [facility] [place] [facility] [address] [id number] [place] [address]- 0355 Jan, [facility] [place] [facility] [address] [id number] [place] [address]- 2524 Jan, [facility] [place] [facility] [address] [id number] [place] [address]- 5193 Jan, [facility] [place] [facility] [address] [id number] [place] [address]- 6361 Jan, [facility] [place] [facility] [address] [id number] [place] [address]- 9645 Jan, [facility] [place] [facility] [address] [id number] [place] [address]- 3016 Nov, [facility] [place] [facility] [address] [id number] [place] [address]- 5474 Nov, [facility] [place] [facility] [address] [id number] [place] [address]- 5387 Nov, [facility] [place] [facility] [address] [id number] [address]- 1507 Oct, [facility] [place] [facility] [address] [id number] [place] [address]- 0932 Oct, [facility] [place] [facility] [address] [id number] [place] [address]- 5634 Oct, [facility] [place] [facility] [address] [id number] [place] [address]- 2794 Oct, [facility] [place] [facility] [address] [id number] [place] [address]- 8008 Oct, [facility] [place] [facility] [address] [id number] [place] [address]- 9522 Oct, [facility] [place] [facility] [address] [id number] [place] [address]- 5628 Oct, [facility] [place] [facility] [address] [id number] [place] [address]- 7310 Oct, [facility] [place] [facility] [address] [id number] [place] [address]- 0883 Oct, [facility] [place] [facility] [address] [id number] [place] [address]- 4261 Sep, [facility] [place] [facility] [address] [id number] [place] [address]- 0917 Sep, [facility] [place] [facility] [address] [id number] [place] [address]- 0623 Sep, [facility] [place] [facility] [address] [id number] [place] [address]- 6357 Sep, [facility] [place] [facility] [address] [id number] [place] [address]- 2192 Sep, [facility] [place] [facility] [address] [id number] [place] [address]- 6041 Sep, [facility] [place] [facility] [address] [id number] [place] [address]- 1654 Sep, [facility] [place] [facility] [address] [id number] [place] [address]- 8023 Sep, [facility] [place] [facility] [address] [id number] [place] [address]- 1790 Sep, [facility] [place] [facility] [address] [id number] [place] [address]- 9086 August, [facility] [place] [facility] [address] [id number] [place] [address]- 0927 August, [facility] [place] [facility] [address] [id number] [place] [address]- 2389 August, [facility] [place] [facility] [address] [id number] [place] [address]- 2937 August, [facility] [place] [facility] [address] [id number] [place] [address]- 0575 August, [facility] [place] [facility] [address] [id number] [place] [address]- 8472 August, [facility] [place] [facility] [address] [id number] [place] [address]- 3223 Jul, [facility] [place] [facility] [address] [id number] [place] [address]- 9648 Jul, [facility] [place] [facility] [address] [id number] [place] [address]- 4366 Jul, [facility] [place] [facility] [address] [id number] [place] [address]- 2757 Jul, [facility] [place] [facility] [address] [id number] [place] [address]- 3479 Jul, [facility] [place] [facility] [address] [id number] [place] [address]- 8407 Jul, [facility] [place] [facility] [address] [id number] [place] [address]- 9665 Jun, [facility] [place] [facility] [address] [id number] [place] [address]- 8380 Jun, [facility] [place] [facility] [address] [id number] [place] [address]- 0655 May, [facility] [place] [facility] [address] [id number] [place] [address]- 1272 May, [facility] [place] [facility] [address] [id number] [place] [address]- 3444 May, [facility] [place] [facility] [address] [id number], [place] [address]- 9551 May, [facility] [address] [id number] [place] [address]- 4822 Apr, [facility] [place] [facility] [address] [id number] [place] [address]- 8287 Apr, [facility] [place] [facility] [address] [facility] [id number] [place] [address]- 1956 18 Mar, 2013 [facility] [place] [facility] [address] [id number] [place] [address]- 2683 18 Mar, 2013 [facility] [place] [facility] [address] [id number] [place] [address]- 3430 Mar, [facility] [place] [facility] [address] [facility] [id number] [place] [address]- 4253 Mar, [facility] [address] [facility] [id number] [place] [address]- 4912 Mar, [facility] [place] [facility] [address] [facility] [id number] [place] [address]- 7128 Mar, [facility] [place] [facility] [address] [facility] [id number] [place] [address]- 8942 Feb, [facility] [place] [facility] [address] [facility] [id number] [place] [address]- 3774 Feb, [facility] [place] [facility] [address] [facility] [id number] [address]- 1336 14 Feb, 2013 [facility] [place] [facility] [address] [facility] [id number], [place] [address]- 5822 14 Feb, 2013 [facility] [place] [facility] [address] [facility] [id number], [place] [address]- 3554 05 Feb, 2013 [facility] [place] [facility] [address] [facility] [id number], [place] [address]- 0664 05 Feb, 2013 [facility] [place] [facility] [address] [facility] [id number] [place] [address]- 3957 24 Jan, 2013 [facility] [place] [facility] [address] [id number] [place] [address]- 2782 24 Jan, 2013 [facility] [place] [facility] [address] [id number] [place] [address]- 1637 Jan, [facility] [place] [facility] [address] [id number] [place] [address]- 1244 Jan, [facility] [place] [facility] [address] [id number] [place] [address]- 4543 Jan, [facility] [place] [facility] [address] [id number] [place] [address]- 1480 Jan, [facility] [place] [facility] [address] [id number] [place] [address]- 5769 Dec, [facility] [place] [facility] [address] [id number] [place] [address]- 3123 Dec, [facility] [place] [facility] [address] [id number] [place] [address]- 2188 Nov, [facility] [place] [facility] [address] [id number] [place] [address]- 0356 Nov, [facility] [place] [facility] [address] [id number] [place] [address]- 7632 Oct, [facility] [place] [facility] [address] [id number] [place] [address]- 9035 Oct, [facility] [place] [facility] [address] [id number] [place] [address]- 2102 Oct, [facility] [place] [facility] [address] [id number] [place] [address]- 0543 Oct, [facility] [place] [facility] [address] [id number] [place] [address]- 3894 Oct, [facility] [place] [facility] [address] [id number] [place] [address]- 2546 Oct, [facility] [place] [facility] [address] [id number] [place] [address]- 4397 Sep, [facility] [address] [id number] [place] [address]- 0614 Sep, [facility] [place] [facility] [address] [id number] [place] [address]- 9043 Sep, [facility] [place] [facility] [address] [id number] [place] [address]- 8663 Sep, [facility] [place] [facility] [address] [id number] [place] [address]- 6022 August, [facility] [address] [id number] [place] [address]- 8224 August, [facility] [place] [facility] [address] [id number] [place] [address]- 0929 August, [facility] [place] [facility] [address] [id number] [place] [address]- 6207 August, [facility] [place] [facility] [address] [id number] [place] [address]- 3168 August, [facility] [place] [facility] [address] [id number] [place] [address]- 0905 Jul, [facility] [place] [facility] [address] [id number] [place] [address]- 3901 Jul, [facility] [place] [facility] [address] [id number] [place] [address]- 8291 Jul, [facility] [place] [facility] [address] [id number], [place] [address]- 2067 Jul, [facility] [place] [facility] [address] [id number] [place] [address]- 6587 Jul, [facility] [place] [facility] [address] [id number] [place] [address]- 4763 Jul, [facility] [place] [facility] [address] [id number] [place] [address]- 0230 Jul, [facility] [place] [facility] [address] [id number], [place] [address]- 1337 04 Jul, 2012 [facility] [address] [facility] [id number] [place] [address] Jul, [facility] [address] [id number] [address] Jul, [facility] [address] [facility] [id number] [id number] Jun, [facility] [address] [id number] [address] Jun, [facility] [address] [facility] [id number] [place] [address] Jun, [facility] [address] [id number] [address] Jun, [facility] [id number], [place] [address] Jun, [facility] [address] [id number] [address] May, [facility] [id number] [address] May, [facility] [address] [id number] [address] May, [facility] [address] [id number], [place] [address] Apr, [facility] [address] [facility] [id number], [place] [address] Apr, [facility] [place] [facility] [address] [facility] [id number] [address] Apr, [facility] [place] [facility] [address] [facility] [id number][place] [address] Apr, [facility] [place] [facility] [address] [id number], [place] [address] Apr, [facility] [place] [facility] [address] [id number] [place] [address] Apr, [facility] [place] [facility] [address] [id number] [place] [address] Mar, [facility] [place] [facility] [address] [id number] [place] [address] Mar, [facility] [place] [facility] [address] [id number] [place] [address] Mar, [facility] [place] [facility] [address] [id number] [place] [address] Mar, [facility] [place] [facility] [address] [id number] [place] [address] Feb, [facility] [place] [facility] [address] [id number] [place] [address] Feb, [facility] [place] [facility] [address] [id number] [place] [address] Feb, [facility] [place] [facility] [address] [id number] [place] [address] Feb, [facility] [place] [facility] [address] [id number] [place] [address] Feb, [facility] [place] [facility] [address] [id number] [place] [address] Feb, [facility] [place] [facility] [address] [id number] [place] [address] Feb, [facility] [place] [facility] [address] [id number] [place] [address] Feb, [facility] [place] [facility] [address] [id number] [place] [address] Feb, [facility] [place] [facility] [address] [id number] [place] [address] Feb, [facility] [place] [facility] [address] [id number] [place] [address] Feb, [facility] [place] [facility] [address] [id number] [place] [address] Feb, [facility] [place] [facility] [address] [id number] [address] Feb, [facility] [place] [facility] [address] [facility] [id number] [place] [address] Feb, [facility] [place] [facility] [address] [id number], [place] [address] Feb, [facility] [place] [facility] [address] [id number] [place] [address] Feb, [facility] [place] [facility] [address] [id number] [address] Jan, [facility] [place] [facility] [address] [facility] [id number], [place] [address] Jan, [facility] [place] [facility] [address] [id number] [address] Jan, [facility] [place] [facility] [address] [id number], [place] [address] Jan, [facility] [place] [facility] [address] [facility] [id number] [address] 30 Jan, 2012 [facility] [place] [facility] [address] [id number], [place] [address] Jan, [facility] [place] [facility] [address] [id number] [address] Jan, [facility] [place] [facility] [address] [id number][place] [address] Jan, [facility] [place] [facility] [address] [facility] [id number] [id number] 16 Jan, 2012 [facility] [place] [facility] [address] [facility] [id number] [address] 15 Jan, 2012 [facility] [place] [facility] [address] [id number] [place] [address] 15 Jan, 2012 [facility] [place] [facility] [address] [id number] [place] [address] 01 Jan, 2012 [facility] [place] [facility] [address] [id number] [place] [address] 2546 26 Sep, 2011 [facility] [place] [facility] [address] [id number] [place] [address] 2546 26 Sep, 2011 [facility] [place] [facility] [address] [id number] [place] [address] 2546 24 Sep, 2011 [facility] [place] [facility] [address] [id number] [place] [address] 23 Sep, 2011 [facility] [place] [facility] [address] [id number] [place] [address] 22 Dec, 2011 [facility] [place] [facility] [address] [id number] [place] [address] 113[address] 21 Dec, 2011 [facility] [place] [facility] [address] [id number] [place] [address] 254 20 Sep, 2011 [facility] [place] [facility] [address] [id number] [place] [address] 2546 20 Sep, 2011 [facility] [place] [facility] [address] [id number] [place] [address] 2541 07 Sep, 2011 [facility] [place] [facility] [address] [id number] [place] [address] 2546 06 Sep, 2011 [facility] [place] [facility] [address] [id number] [place] [address] 2546 06 Sep, 2011 [facility] [place] [facility] [address] [id number] [place] [address] 2548 05 Sep, 2011 [facility] [place] [facility] [address] [id number] [place] [address] 2546 23 Nov, 2011 [facility] [place] [facility] [address] [id number] [place] [address] 2540 Nov, [facility] [place] [facility] [address] [id number] [place] [address]111 Nov, [facility] [place] [facility] [address] [id number] [place] [address] Nov, [facility] [place] [facility] [address] [id number] [place] [address] 4918 Nov, [facility] [place] [facility] [address] [id number] [place] [address] Nov, [facility] [place] [facility] [address] [id number] [place] [address] Nov, [facility] [place] [facility] [address] [id number] [place] [address] 2483 Nov, [facility] [place] [facility] [address] [id number] [place] [address] 8170 Oct, [facility] [place] [facility] [address] [id number] [place] [address]277 Oct, [facility] [place] [facility] [address] [id number] [place] [address] 5821 Oct, [facility] [place] [facility] [address] [id number] [place] [address] 9007 Oct, [facility] [place] [facility] [address] [id number] [place] [address] 6683 Oct, [facility] [place] [facility] [address] [id number] [place] [address] 9683 Oct, [facility] [place] [facility] [address] [id number] [place] [address] 6478 Oct, [facility] [place] [facility] [address] [id number] [place] [address] 7023 Sep, [facility] [place] [facility] [address] [id number] [place] [address] 6619 Sep, [facility] [place] [facility] [address] [id number] [place] [address] 8917 August, [facility] [address] [id number] [place] [address] 1469 August, [facility] [place] [facility] [address] [id number] [place] [address] 9937 August, [facility] [place] [facility] [address] [id number] [place] [address]130 August, [facility] [place] [facility] [address] [id number] [place] [address] 6476 Jul, [facility] [place] [facility] [address] [id number] [place] [address]- 8748 Jul, [facility] [place] [facility] [address] [id number] [place] [address]- 5898 Jul, [facility] [place] [facility] [address] [id number] [place] [address]- 9588 Jul, [facility] [place] [facility] [address] [id number] [place] [address] 0604 Jul, [facility] [place] [facility] [address] [id number] [place] [address] 0797 Jul, [facility] [place] [facility] [address] [id number] [place] [address]- 0514 Jul, [facility] [place] [facility] [address] [id number] [place] [address] 3112 Jul, [facility] [place] [facility] [address] [id number] [place] [address]- 4140 Jul, [facility] [place] [facility] [address] [id number] [place] [address] 6437 Jun, [facility] [place] [facility] [address] [id number] [place] [address] 1821 Jun, [facility] [place] [facility] [address] [id number] [place] [address] Jun, [facility] [place] [facility] [address] [id number] [place] [address]- 6263 14 Jun, 2011 [facility] [address] [id number] [place] [address]- 0167 Jun, [facility] [place] [facility] [address] [id number] [place] [address] 5412 Jun, [facility] [address] [id number] [place] [address] 2036 Jun, [facility] [place] [facility] [address] [id number] [place] [address]- 9180 May, [facility] [address] [id number] [place] [address]- 6705 24 May, 2011 [facility] [address] [id number] [place] [address]- 3465 May, [facility] [address] [id number] [place] [address]- 6101 May, [facility] [address] [id number] [place] [address]- 7811 May, [facility] [address] [id number] [place] [address]- 2709 Apr, [facility] [address] [id number] [place] [address]- 2295 Apr, [facility] [address] [id number] [place] [address]- 4996 Apr, [facility] [address] [id number] [place] [address]- 0696 Apr, [facility] [place] [facility] [address] [id number] [place] [address]- 6646 Apr, [facility] [place] [facility] [address] [id number] [place] [address]- 6617 Mar, [facility] [place] [facility] [address] [id number] [place] [address]- 2907 Mar, [facility] [place] [facility] [address] [id number] [place] [address] Mar, [facility] [place] [facility] [address] [id number] [place] [address]- 9236 Mar, [facility] [place] [facility] [address] [id number] [place] [address]- 4056 Mar, [facility] [place] [facility] [address] [id number] [place] [address]- 7378 Mar, [facility] [place] [facility] [address] [id number] [place] [address] Mar, [facility] [place] [facility] [address] [id number] [place] [address]- 1293 Feb, [facility] [place] [facility] [address] [id number] [place] [address]- 9858 Feb, [facility] [place] [facility] [address] [id number] [place] [address]- 9230 Feb, [facility] [place] [facility] [address] [id number] [place] [address]- 0322 Feb, [facility] [place] [facility] [address] [id number] [place] [address]- 3353 Jan, [facility] [place] [facility] [address] [id number], [place] [address]- 4967 Jan, [facility] [place] [facility] [address] [id number], [place] [address]- 3915 Jan, [facility] [place] [facility] [address] [id number] [place] [address]- 6345 Jan, [facility] [place] [facility] [address] [id number] [place] [address]- 6748 Nov, [facility] [place] [facility] [address] [id number] [place] [address]- 0197 Mar, [facility] [place] [facility] [id number] [address] Mar, [facility] [id number], [place] [address]93 Mar, [facility] [id number], [place] [address] 5889 Mar, [facility] [id number], [place] [address] 5489 Mar, [facility] [id number] [address] 6[address] Mar, [facility] [address] [place] [place] [id number] [place] [address] 7346 Feb, [facility] [id number], [place] [address] 0698 Feb, [facility] [address] [place] [id number] [place] [address]- 7882 Jan, [facility] [id number] [address]- 9259 Jan, [facility] [id number] [address]- 0131 Jan, IMMUNIZATIONS No Known Immunizations SOCIAL HISTORY Never Assessed REASON FOR VISIT f/u--Brigida Diggs MA PLAN OF CARE Activity Details Follow Up 3 Months Reason: VITAL SIGNS Height 63 in 2017-02-14 Weight 240.5 lbs 2017-02-14 Heart Rate 64 bpm 2017-02-14 Respiratory Rate 20 2017-02-14 BMI 42.60 kg/m2 2017-02-14 Blood pressure systolic 136 mmHg 2017-02-14 Blood pressure diastolic 80 mmHg 2017-02-14 MEDICATIONS Medication Instructions Dosage Frequency Start Date End Date Duration Status Toprol XL 50 MG TAKE ONE TABLET BY MOUTH THREE TIMES DAILY 30 Active Fish Oil 1200 MG Orally Once a day 1 capsule 24h 30 days Active Clonazepam 1 MG Orally Twice a day as needed 1 tablet 30 days Active Fiber Complete - Active Synthroid 150 MCG Orally Once a day 1 tablet 24h 30 Active Trazodone HCl 100 MG Orally Once a day 0.5-1 tablet at night as needed for sleep 24h 18 Dec, 2016 30 days Active Protonix 40 mg Orally Once a day 1 tablet 24h 30 Active Cymbalta 60 MG Orally Once a day 1 capsule 24h 30 days Active Cetirizine HCl 10 MG TAKE ONE TABLET BY MOUTH ONCE DAILY August, 30 Active Requip 4 MG Orally do not fill in er Once a day 2 tablets 1 to 3 hours before bedtime 24h 30 Active ProAir HFA 108 (90 Base) MCG/ACT Inhalation every 4 hrs 2 puffs as needed 4h Sep, Active Furosemide 40 mg Orally Once a day 1 tablet 24h 30 Active Nystatin 152656 UNIT/GM Externally Twice a day 1 application to thighs as needed 12h Sep, 5 Active Trileptal 300 MG Orally one in the morning, and two at night 1 tablet Oct, 30 days Active Voltaren 1 % Transdermal to knee BID. Max dose 4 grams 2 grams Jan, 8 Active Fluticasone Propionate 50 MCG/ACT Nasally Once a day USE ONE SPRAY IN EACH NOSTRIL TWICE DAILY 24h Active Lyrica 150 MG Orally 3 times a day 1 capsule 8h Active Vitamin D (Ergocalciferol) 95995 UNIT Orally once weekly 1 capsule Active Losartan Potassium 100 mg Orally Once a day 1 tablet 24h 30 Active Gemfibrozil 600 MG Orally Twice a day 1 tablet 12h 30 Active Ferrous Sulfate 325 (65 Fe) MG Orally Once a day 1 tablet 24h Active Symbicort 80-4.5 MCG/ACT Inhalation Twice a day 2 puffs 12h Mar, Active Norvasc 5 mg Orally Once a day 1 tablet 24h Active Vitamin C 1000 MG Orally Once a day 1 tablet 24h Active Potassium Chloride ER 10 MEQ TAKE ONE CAPSULE BY MOUTH ONCE DAILY WITH FOOD 30 Active Nystatin 699367 UNIT/ML Mouth/Throat Four times a day 4 ml 6h Active RESULTS No Results PROCEDURES Procedure Date Ordered Result Body Site [facility] VISIT ESTABLISHED PATIENT Feb 14, 2017 [facility] Visit needs to be added with another visit on the same day Feb 14, 2017 INSTRUCTIONS MEDICATIONS ADMINISTERED No Known Medications [...] 2020 & 2007 Surgical History Bladder surgery [facility] 03/2016 Hospitalization History Surgeries Only Hospitalization History 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
--- OUTSIDE RECORDS SUMMARY | 2018-05-29 08:24 | XMS REPORT ---
Author Author ISABEL MAE [facility] Address [address] [place] [address] Care Team Providers Care Photo Lab Manager Name Role Phone ISABEL MAE Unavailable PROBLEMS Type Condition ICD9-CM Code NEM95-JV Code Onset Dates Condition Status SNOMED Code Problem Long-term use of high-risk medication Z79.899 Active 005348060 Problem Abnormal chest CT R93.8 Active 418406878 Problem Low back pain M54.5 Active 376694539 Problem Generalized anxiety disorder F41.1 Active 16298288 Problem Dysthymic disorder F34.1 Active 98876664 Problem Coronary artery disease involving red cliff coronary artery of red cliff heart, angina presence unspecified I25.10 Active 9555254297473 Problem Depressed F32.9 Active 62515819 Problem Fibromyalgia M79.7 Active 692448722 Problem Hypothyroid E03.9 Active 50376164 Problem Essential (primary) hypertension I10 Active 87698484 Problem Insomnia G47.00 Active 218077382 Problem Vitamin D deficiency E55.9 Active 84259365 Problem Anemia in chronic kidney disease D63.1 Active 220831017679700 Problem Chronic kidney disease, unspecified N18.9 Active 033275478 Problem Body mass index (BMI) of 40.0-44.9 in adult Z68.41 Active 185062628 Problem Stage 3 chronic kidney disease N18.3 Active 191035943 Problem Restless leg G25.81 Active 95971188 Problem Palpitations R00.2 Active 27892736 Problem Asthma J45.909 Active 691423573 Problem Primary osteoarthritis of left knee M17.12 Active 274285287 Problem Bipolar disorder, current episode manic without psychotic features F31.10 Active 220317696 Problem Mood disorder F39 Active 52072048 Problem Degenerative tear of medial meniscus of left knee M23.204 Active 885562429 Problem History of colon polyps Z86.010 Active 352294128 Problem Asthma with acute exacerbation in adult J45.901 Active 695443256 Problem Chronic kidney disease, stage 4 (severe) N18.4 Active 272191953 Problem Functional diarrhea K59.1 Active 27506942 Problem Hypokalemia E87.6 Active 18342140 Problem Mixed stress and urge urinary incontinence N39.46 Active 863081458 Problem History of anemia Z86.2 Active 710200018 Problem Other seasonal allergic rhinitis J30.2 Active 322657251 ALLERGIES No Information ENCOUNTERS Encounter Location Date Diagnosis [facility] [id number] [place] [address] 91860- 4907 Sep, [facility] [address] 48680- 0723 August, Fibromyalgia M79.7 [facility] [address] 74455- 3480 August, [facility] [address] 88852- 3452 August, [facility] [address] 43506- 9576 August, Abnormal chest CT R93.8 [facility] [address] 52911- 6086 August, Generalized anxiety disorder F41.1 and Major depressive disorder, recurrent episode with anxious distress F33.9 [facility] [id number] [place] [address] 97690- 2638 August, Ab[address] chest [address] R93.8 [facility] [id number] [place] [address] 17820- 5735 Jul, [facility] [id number] [place] [address] 54925- 4522 Jul, Chronic kidney disease, stage 4 (severe) N18.4 [facility] [id number] [place] [address] 85109- 1600 Jul, [facility] [address] 63452- 3644 Jul, Restless leg G25.81 ; Mixed stress and urge urinary incontinence N39.46 and Fibromyalgia M79.7 [facility] [id number] [place] [address] 22626- 5975 Jul, Chronic kidney disease, stage 4 (severe) N18.4 [facility] [id number] [place] [address] 00203- 6118 Jun, Orthostatic hypotension I95.1 ; Chronic kidney disease, stage 4 (severe) N18.4 ; Chest wall discomfort R07.89 and Body mass index (BMI) of 40.0-44.9 in adult Z68.41 [facility] [id number] [place] [address] 55377- 7561 Jun, [facility] [id number] [place] [address] 25426- 5152 Jun, Orthostatic hypotension I95.1 [facility] [id number] [place] [address] 49564- 7886 Jun, [facility] [id number] [place] [address] 81994 -7277 Jun, Orthostatic hypotension I95.1 ; Dysuria R30.0 and Acute cystitis without hematuria N30.00 [facility] [id number] [place] [address] 76441- 7097 Jun, [facility] [id number] [place] [address] 09318- 1358 Jun, Chronic kidney disease, stage 4 (severe) N18.4 [facility] [id number] [place] [address] 75878- 1764 Jun, Fibromyalgia M79.7 [facility] [id number] [place] [address] 37785- 1588 Jun, [facility] [id number] [place] [address] 90805- 1442 Jun, [facility] [id number] [place] [address] 50495- [address] May, [address] R93.8 and Stage 3 chronic kidney disease N18.3 [facility] [id number] [place] [address] 06817- 4702 May, Chronic kidney disease, stage 4 (severe) N18.4 [facility] [id number] [place] [address] 46202- 6671 May, Chronic kidney disease, stage 4 (severe) N18.4 [facility] [id number] [place] [address] 64733- [address] May, [address] R93.8 [facility] [id number] [place] [address] 78563- 6886 May, [facility] [id number] [place] [address] 03393- 1999 May, [facility] [id number] [place] [address] 89217- 2058 May, Generalized anxiety disorder F41.1 and Major depressive disorder, recurrent episode with anxious distress F33.9 [facility] [id number] [place] [address] 81602- 1956 May, Mood disorder F39 [facility] [id number] [place] [address] 32921- 2659 Apr, [facility] [id number] [place] [address] 78868- 5616 Apr, Infected skin lesion L08.9 and Muscle strain of right shoulder region, initial encounter S46.911A [facility] [id number] [place] [address] 33403- 0902 Apr, Generalized anxiety disorder F41.1 and Major depressive disorder, recurrent episode with anxious distress F33.9 [facility] [id number] [place] [address] 26137- 9985 Apr, [facility] [id number] [place] [address] 24936- 1229 Apr, Recent urinary tract infection Z87.440 and Hypothyroid E03.9 [facility] [id number] [place] [address] 94484- 0413 Apr, Generalized anxiety disorder F41.1 and Major depressive disorder, recurrent episode with anxious distress F33.9 [facility] [id number] [place] [address] 14160- 9514 Apr, Recent urinary tract infection Z87.440 [facility] [id number] [place] [address] 30891- 4456 Mar, [facility] [id number] [place] [address] 02565 -4017 Mar, Dysuria R30.0 ; Acute cystitis without hematuria N30.00 and BMI 40.0-44.9, adult Z68.41 [facility] [id number] [place] [address] 35851- 0460 14 Mar, 2017 [place] [id number] [place] [address] 99326- 0546 Mar, [facility] [id number] [place] [address] 38847- 9233 07 Mar, 2017 Generalized anxiety disorder F41.1 and Major depressive disorder, recurrent episode with anxious distress F33.9 [facility] [id number] [place] [address] 92044- 2995 Feb, Conjunctivitis, bacterial H10.9 [facility] [id number] [place] [address] 62944- 2795 Feb, [facility] [id number] [place] [address] 54084 -1598 15 Feb, 2017 Conjunctivitis, bacterial H10.9 [facility] [id number] [place] [address] 48123- 2033 Feb, [facility] [id number] [place] [address] 86061 -4609 Feb, Dysuria R30.0 ; Acute cystitis N30.00 and BMI 40.0-44.9, adult Z68.41 [facility] [id number] [place] [address] 48069- 5271 Feb, [facility] [address] 00539- 1590 Feb, Generalized anxiety disorder F41.1 and Major depressive disorder, recurrent episode with anxious distress F33.9 [facility] [address] 71683- 8768 Feb, Mood disorder F39 and BMI 40.0-44.9, adult Z68.41 [facility] [address] 01874- 3741 Jan, [facility] [address] 32855- 5233 Jan, [facility] [address] 35249- 9608 Jan, Hypothyroid E03.9 [facility] [id number] [place] [address] 84968- 3528 Jan, [facility] [id number] [place] [address] 28024- 2265 Jan, Chronic kidney disease, unspecified N18.9 ; Hypokalemia E87.6 ; Essential (primary) hypertension I10 ; Fibromyalgia M79.7 ; Coronary artery disease involving red cliff coronary artery of red cliff heart, angina presence unspecified I25.10 ; Hypothyroid E03.9 and Encounter for immunization Z23 [facility] [id number] [place] [address] 66422- 3052 04 Jan, 2017 Hypothyroid E03.9 [facility] [address] 74846- 3733 Jan, [facility] [address] [address] 8054 28 Dec, 2016 Vitamin D deficiency E55.9 [facility] [id number] [place] [address] 86682- 7462 28 Dec, 2016 Primary osteoarthritis of left knee M17.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 [facility] [id number] [place] [address] 64865- 3146 19 Dec, 2016 Fibromyalgia M79.7 [facility] [id number] [place] [address] 86325- 0386 18 Dec, 2016 Mood disorder F39 [facility] [id number] [place] [address] 12391- 6375 13 Dec, 2016 [facility] [id number] [place] [address] 75818- 5066 13 Dec, 2016 Generalized anxiety disorder F41.1 and Major depressive disorder, recurrent episode with anxious distress F33.9 [facility] [id number] [place] [address] 12258- 7564 11 Dec, 2016 [facility] [id number] [place] [address] 47735- 5349 08 Dec, 2016 Streptococcal meningitis G00.2 [facility] [id number] [place] [address] 77107- 4085 07 Dec, 2016 Streptococcal meningitis G00.2 [facility] [address] [address]- 9154 07 Dec, 2016 [facility] [id number] [place] [address] 21641- 5376 06 Dec, 2016 Streptococcal meningitis G00.2 [facility] [id number] [place] [address] 65745- 4649 Dec, [facility] [id number] [place] [address] 78974- 6805 Dec, Major depressive disorder, recurrent episode with anxious distress F33.9 [facility] [id number] [place] [address] 31819- 9280 Nov, Fever, unspecified fever cause R50.9 [facility] [id number] [place] [address] 94786- 4108 Nov, [facility] [id number] [place] [address] 72345- 0937 Nov, Hypothyroid E03.9 [facility] [id number] [place] [address] 82812- 8360 Nov, Generalized anxiety disorder F41.1 and Major depressive disorder, recurrent episode with anxious distress F33.9 [facility] [id number] [place] [address] 51850- 5200 Nov, [facility] [address] [id number] Oct, Dental examination Z01.20 [facility] [id number] [place] [address] 81752- 6480 Oct, Generalized anxiety disorder F41.1 and Major depressive disorder, recurrent episode with anxious distress F33.9 [facility] [id number] [place] [address] 33527- 4669 Oct, Chronic kidney disease, stage 4 (severe) N18.4 [facility] [id number] [place] [address] 76771- 1070 Oct, [facility] [id number] [place] [address] 06079- 5871 Oct, Fibromyalgia M79.7 [facility] [id number] [place] [address] 75202- 5143 Oct, [facility] [id number] [place] [address] 78138- 3076 Oct, Generalized anxiety disorder F41.1 ; Major depressive disorder, recurrent episode with anxious distress F33.9 and Bipolar disorder, current episode manic without psychotic features F31.10 [facility] [address] [address]- 6979 Sep, [facility] [id number] [place] [address] 83583- 9727 Sep, [facility] [id number] [place] [address] 56502- 2733 15 Sep, 2016 Vitamin D deficiency E55.9 [facility] [id number] [place] [address] 57992- 8201 14 Sep, 2016 Vitamin D deficiency E55.9 [facility] [id number] [place] [address] 03669- 6218 Sep, [facility] [id number] [place] [address] 43369- 7170 Sep, Chronic kidney disease, stage 4 (severe) N18.4 ; Hypothyroid E03.9 ; Restless leg G25.81 ; Fibromyalgia M79.7 ; Essential ( primary) hypertension I10 ; Vitamin D deficiency E55.9 ; Dyspepsia R10.13 ; Anemia in chronic kidney disease D63.1 ; Chronic kidney disease, unspecified N18.9 ; Coronary artery disease involving red cliff coronary artery of red cliff heart , angina presence unspecified I25.10 ; Screening breast examination Z12.39 and Low back pain M54.5 [facility] [id number] [place] [address] 21584- 2411 August, Generalized anxiety disorder F41.1 and Major depressive disorder, recurrent episode with anxious distress F33.9 [facility] [address] [address]- 6567 August, Generalized anxiety disorder F41.1 and Major depressive disorder, recurrent episode with anxious distress F33.9 [facility] [id number] [place] [address] 84211- 3040 August, Fibromyalgia M79.7 [facility] [id number] [place] [address] 18212- 4703 Jul, Generalized anxiety disorder F41.1 and Major depressive disorder, recurrent episode with anxious distress F33.9 [facility] [id number] [place] [address] 13497- 0889 Jul, Fibromyalgia M79.7 [facility] [id number] [place] [address] 27148- 9402 Jul, Generalized anxiety disorder F41.1 [facility] [id number] [place] [address] 62065- 3256 May, [facility] [id number] [place] [address] 27839- 0744 May, Hypothyroid E03.9 [facility] [id number] [place] [address] 05095- 7478 May, Chronic kidney disease, stage 4 (severe) N18.4 ; Hypothyroid E03.9 ; Restless leg G25.81 ; Fibromyalgia M79.7 ; Essential ( primary) hypertension I10 ; Vitamin D deficiency E55.9 ; Dyspepsia R10.13 ; Acute non-recurrent maxillary sinusitis J01.00 ; Anemia in chronic kidney disease D63.1 ; Chronic kidney disease, unspecified N18.9 and Coronary artery disease involving red cliff coronary artery of red cliff heart, angina presence unspecified I25.10 [facility] [id number] [place] [address] 99520- 3729 May, Vitamin D deficiency, unspecified E55.9 [facility] [address] [place] [address] 43596- 4251 May, Generalized anxiety disorder F41.1 and Major depressive disorder, recurrent episode with anxious distress F33.9 [facility] [id number] [place] [address] 21810- 1396 Apr, Pain in right knee M25.561 and Pain in left knee M25.562 [facility] [id number] [place] [address] 31094- 5263 Apr, [facility] [address] [address]- 0441 Apr, [facility] [id number] [place] [address] 27942- 6906 Apr, [facility] [id number] [place] [address] 17681- 3143 Mar, Generalized anxiety disorder F41.1 and Major depressive disorder, recurrent episode with anxious distress F33.9 [facility] [id number] [place] [address] 82728- 6158 Mar, Generalized anxiety disorder F41.1 and Major depressive disorder, recurrent episode with anxious distress F33.9 [facility] [id number] [place] [address] 77360- 1913 Mar, [facility] [id number] [place] [address] 49465- 4702 Mar, [facility] [id number] [place] [address] 90150- 6860 Mar, [facility] [id number] [place] [address] 42602- 1110 Mar, Asthma J45.909 and Fibromyalgia M79.7 [facility] [id number] [place] [address] 05521- 7830 Mar, Chronic kidney disease, stage 4 (severe) N18.4 ; Vitamin D deficiency E55.9 and Essential (primary) hypertension I10 [facility] [id number] [place] [address] 07271- 5686 Feb, [facility] [id number] [place] [address] 77126- 8665 Feb, Dysuria R30.0 ; Mixed stress and urge urinary incontinence N39.46 ; Fibromyalgia M79.7 and Chronic kidney disease, stage IV (severe) N18.4 [facility] [id number] [place] [address] 32131- 6254 Feb, Chronic kidney disease, stage 4 (severe) N18.4 [facility] [id number] [place] [address] 79852- 3732 Feb, Chronic kidney disease, stage 4 (severe) N18.4 [facility] [id number] [place] [address] 55084- 3177 Feb, [facility] [id number] [place] [address] 67204- 1073 Feb, Vitamin D deficiency, unspecified E55.9 [facility] [id number] [place] [address] 92076- 1444 Jan, [facility] [id number] [place] [address] 15514- 3136 Jan, [facility] [id number] [place] [address] 48001- 4445 Dec, [facility] [id number] [place] [address] 29386- 2523 Dec, Chronic kidney disease, stage 4 (severe) N18.4 [facility] [id number] [place] [address] 50298- 6533 Dec, Dysthymic disorder F34.1 and Generalized anxiety disorder F41.1 [facility] [id number] [place] [address] 64913- 8186 Dec, [facility] [id number] [place] [address] 19012- 6408 Dec, [facility] [id number] [place] [address] 25688- 2642 08 Dec, 2015 Dysthymic disorder F34.1 and Generalized anxiety disorder F41.1 [facility] [id number] [place] [address] 25161- 2211 08 Dec, 2015 Dysuria R30.0 ; Chronic kidney disease, stage 4 (severe) N18.4 ; Hypertension I10 ; Dyspepsia R10.13 ; Yeast dermatitis B37.2 ; Palpitations R00.2 ; Hypothyroid E03.9 ; Functional diarrhea K59.1 and Other seasonal allergic rhinitis J30.2 [facility] [id number] [place] [address] 83016 -2411 Dec, [facility] [address] 27761 -0209 Nov, Dysuria R30.0 and Stress incontinence N39.3 [facility] [address] 98604- 8121 Nov, [facility] [address] 36185- 0397 Nov, [facility] [address] 00738- 9391 Nov, Osteoarthritis of knees, bilateral M17.0 [facility] [address] 34309- 9749 Nov, Dysthymic disorder F34.1 and Generalized anxiety disorder F41.1 [facility] [address] 36446- 6232 Nov, [facility] [id number] [place] [address] 05836- 2109 Nov, [facility] [address] 31461- 7716 Nov, Urgency of urination R39.15 [facility] [address] 88155- 5324 Nov, [facility] [address] 74753- 4456 Nov, Chronic kidney disease, stage 4 (severe) N18.4 [facility] [address] 08813- 8637 Oct, Hypertension I10 ; Coronary artery disease involving red cliff coronary artery of red cliff heart, angina presence unspecified I25.10 ; Palpitations R00.2 ; Hypothyroid E03.9 ; Right foot pain M79.671 ; Functional diarrhea K59.1 and Other seasonal allergic rhinitis J30.2 [facility] [id number] [place] [address] 93103- 6663 Oct, Dysthymic disorder F34.1 and Generalized anxiety disorder F41.1 [facility] [address] 72671- 0564 Sep, [facility] [id number] [place] [address] 41797- 0933 Sep, [facility] [id number] [place] [address] 96501- 3862 Sep, [facility] [address] 54658- 9524 Sep, [facility] [id number] [place] [address] 56741- 3704 Sep, [facility] [id number] [place] [address] 52832- 6606 Sep, Dysthymic disorder F34.1 and Generalized anxiety disorder F41.1 [facility] [id number] [place] [address] 20653- 7905 Sep, Asthma with acute exacerbation in adult J45.901 ; Dysuria R30.0 ; Chronic kidney disease, stage 4 (severe) N18.4 and History of anemia Z86.2 [facility] [id number] [place] [address] 66488- 2363 Sep, Generalized anxiety disorder F41.1 and Dysthymic disorder F34.1 [facility] [id number] [place] [address] 35089- 2818 August, Screening breast examination Z12.39 and Acute recurrent maxillary sinusitis J01.01 [facility] [address] 87796- 7114 August, Osteoarthritis of knees, bilateral M17.0 [facility] [id number] [place] [address] 05[address]- 5967 August, Chronic kidney disease, stage 4 (severe) N18.4 ; Acute non- recurrent maxillary sinusitis J01.00 ; Urinary problem R39.89 ; Bowel habit changes R19.4 ; Functional diarrhea K59.1 and History of colon polyps Z86.010 [place] [address] [place] [id number] [place] [address] 18[address]- [address]116 Jul, Dysthymic disorder F34.1 and Generalized anxiety disorder F41.1 [place] [address] [address]- [address] Jul, [place] [address] [place] [id number] [place] [address] 08[address]- 2510 Jul, Dysthymic disorder F34.1 ; Generalized anxiety disorder F41.1 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 [place] [address] [place] [id number] [place] [address] 15[address]- [address]270 Jul, [place] [address] [place] [id number] [place] [address]- 8351 Jun, [place] [address] [place] [id number] [place] [address] 47325- 6549 Jun, [place] [id number] [place] [address] 49239- 5253 May, [place] [id number] [place] [address] 52267- 6799 May, Dysthymic disorder F34.1 and Generalized anxiety disorder F41.1 [place] [id number] [place] [address] 11488- 2893 Apr, Kidney disease N28.9 [place] [id number] [place] [address] 00772- 9932 Apr, Generalized anxiety disorder F41.1 and Dysthymic disorder F34.1 [place] [id number] [place] [address] 75992- 6574 Apr, Chronic kidney disease, stage 4 (severe) N18.4 [place] [id number] [place] [address] 39044- 6889 Apr, Generalized anxiety disorder F41.1 ; Major depression, recurrent F33.9 and Sleep disturbance G47.9 [place] [address] [address]404- 1982 Mar, Generalized anxiety disorder F41.1 and Dysthymic disorder F34.1 [place] [address] 15447- 8890 Mar, Generalized anxiety disorder F41.1 ; Dysthymic disorder F34.1 and Insomnia G47.[address] 73449- 8196 Mar, [place] [address] 09775- 6893 Mar, [address] 25213- 5596 Mar, Osteoarthritis of knees, bilateral M17.[address] 94271- 5982 Mar, Hypertension I10 ; Hypothyroid E03.9 ; Dysthymic disorder F34.1 ; Chronic kidney disease, stage 4 (severe) N18.4 and Nausea & vomiting R11.2 [place] [id number] [place] [address] 43690- 3634 Mar, Generalized anxiety disorder F41.1 ; Dysthymic disorder F34.1 and Insomnia G47.00 [place] [id number] [place] [address] 52370- 0721 Mar, Dehydration E86.0 ; Chronic kidney disease, stage 4 (severe ) N18.4 and Nausea & vomiting R11.2 [facility] [id number] [address] Mar, Gastroenteritis K52.9 [facility] [id number] [place] [address] 74875- 3427 Mar, [facility] [id number] [place] [address] 92567- 5918 Mar, [facility] [address] 09292- 3737 Feb, Dysthymic disorder F34.1 and Generalized anxiety disorder F41.1 [place] [address] 84228- 7973 Jan, UTI (urinary tract infection) N39.0 ; Asthma J45.909 ; Coronary artery disease involving red cliff coronary artery of red cliff heart, angina presence unspecified I25.10 ; Hypertension I10 ; Hypothyroid E03.9 ; Vitamin D deficiency E55.9 ; Insomnia G47.00 ; Palpitations R00.2 ; Depressed F32.9 ; Restless leg G25.81 and Anxiety F41.9 [place] [id number] [place] [address] 82605- 6517 Jan, Dysthymic disorder F34.1 and Generalized anxiety disorder F41.1 [place] [id number] [place] [address] 56343- 7872 Jan, [place] [id number] [place] [address] 51278- 4057 Dec, [place] [id number] [place] [address] 77999- 5649 Dec, Alkalosis 276.3 ; Chronic kidney disease, 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.4 ; Hyperpotassemia 276.7 ; Secondary hyperparathyroidism, renal 588.81 ; Proteinuria 791.0 ; Unspecified vitamin D deficiency 268.9 ; Anemia in chronic kidney disease 285.21 ; Other and unspecified hyperlipidemia 272.4 ; Hypertension, essential, benign 401.1 and Chronic kidney disease (CKD), stage III (moderate) 585.3 [place] [id number] [address] 0784 Dec, [place] [id number] [place] [address] 67521- 4041 Dec, Depressive disorder, not elsewhere classified 311 and Generalized anxiety disorder 300.02 [place] [id number] [place] [address] 02640- 2671 Dec, [place] [id number] [place] [address] 01755- 6558 Dec, [place] [id number] [place] [address] 78304- 6928 Nov, Depressive disorder, not elsewhere classified 311 and Generalized anxiety disorder 300.02 [place] [id number] [place] [address] 49064- 3749 Nov, Arthritis of both knees 716.96 [place] [id number] [place] [address] 37405- 7368 Nov, PAF (paroxysmal atrial fibrillation) 427.31 ; CAD (coronary artery disease) 414.00 ; Chest pain 786.50 and Chronic kidney disease (CKD) stage G4/A1, severely decreased glomerular filtration rate (GFR) between 15-29 mL/min/1.73 square meter and albuminuria creatinine ratio less than 30 mg/g 585.4 [id number] [place] [address] 28814- 1249 Oct, Coronary atherosclerosis of unspecified type of vessel, red cliff or graft 414.00 ; Chronic kidney disease, 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.4 ; Hypertension 401.9 and Edema 782.3 [place] [id number] [place] [address] 97176- 4279 Oct, Depressive disorder, not elsewhere classified 311 and Generalized anxiety disorder 300.02 [address] [place] [address] 35493- 0692 Oct, Depressive disorder, not elsewhere classified 311 and Generalized anxiety disorder 300.02 [facility] [id number] [place] [address] 66942- 4004 Oct, [facility] [id number] [place] [address] 18234- 1431 Oct, [facility] [id number] [place] [address] 76692- 8135 Sep, [facility] [address] 57477- 3485 Sep, Chronic kidney disease, 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.4 [facility] [address] 97790- 6724 Sep, [facility] [id number] [place] [address] 86787- 3900 Sep, Coronary atherosclerosis of unspecified type of vessel, red cliff or graft 414.00 ; Hypertension 401.9 ; Edema 782.3 and Hypothyroidism 244.9 [facility] [id number] [place] [address] 90618- 1948 Sep, Coronary atherosclerosis of unspecified type of vessel, red cliff or graft 414.00 ; Hypertension 401.9 ; Fibromyalgia 729.1 ; Edema 782.3 ; Hypothyroidism 244.9 and Anemia 285.9 [facility] [id number] [place] [address] 24063- 8299 Sep, Anxiety disorder, unspecified 300.00 and Depressive disorder , not elsewhere classified 311 [facility] [id number] [place] [address] 57811- 1218 Sep, [facility] [id number] [place] [address] 30773- 8680 August, Generalized anxiety disorder 300.02 [facility] [id number] [place] [address] 27121- 2030 August, Closed fracture of lateral malleolus 824.2 [facility] [id number] [place] [address] 67554- 3062 14 Jul, 2014 [facility] [place] [facility] [address] [id number] [place] [address]- 4367 Jul, [facility] [place] [facility] [address] [id number] [place] [address]- 7228 Jun, [facility] [place] [facility] [address] [facility] [place] [place] [id number] [place] [address]- 7380 Jun, [facility] [place] [facility] [address] [id number] [place] [address]- 5030 Jun, [facility] [place] [facility] [address] [id number] [place] [address]- 2171 Jun, [facility] [place] [facility] [address] [facility] [place] [place] [id number] [place] [address]- 7694 Jun, [facility] [place] [facility] [address] [facility] [place] [place] [id number] [place] [address]- 4059 Jun, [facility] [place] [facility] [address] [facility] [place] [id number] [address]- 2749 May, [facility] [place] [facility] [address] [facility] [place] [place] [id number] [place] [address]- 2127 May, 2014 [facility] [place] [facility] [address] [facility] [place] [place] [id number], [place] [address]- 0706 18 May, 2014 [facility] [place] [facility] [address] [facility] [place] [place] [id number], [place] [address]- 4869 18 May, 2014 [facility] [place] [facility] [address] [facility] [place] [id number] [address]- 0987 16 May, 2014 [facility] [place] [facility] [address] [facility] [place] [place] [id number] [place] [address]- 3998 16 May, 2014 [facility] [place] [facility] [address] [facility] [place] [place] [id number], [place] [address]- 0048 13 May, 2014 [facility] [place] [facility] [address] [facility] [place] [id number] 0464 13 May, 2014 [facility] [place] [facility] [address] [id number] [place] [address]- 4313 May, 2014 [facility] [place] [facility] [address] [id number] [place] [address]- 2646 May, [facility] [place] [facility] [address] [id number] [place] [address]- 8792 Apr, [facility] [place] [facility] [address] [id number] [place] [address]- 1238 Apr, [facility] [place] [facility] [address] [id number] [place] [address]- 5375 Mar, [facility] [place] [facility] [address] [id number] [place] [address]- 9635 Mar, [facility] [place] [facility] [address] [id number] [place] [address]- 1096 Mar, [facility] [place] [facility] [address] [id number] [place] [address]- 1356 Mar, [facility] [place] [facility] [address] [id number] [place] [address]- 4391 Mar, [facility] [place] [facility] [address] [id number] [place] [address]- 8036 Mar, [facility] [place] [facility] [address] [id number] [place] [address]- 5051 Mar, [facility] [place] [facility] [address] [id number] [place] [address]- 3422 Feb, [facility] [place] [facility] [address] [id number] [place] [address]- 2119 Feb, [facility] [place] [facility] [address] [id number] [place] [address]- 6325 Feb, [facility] [place] [facility] [address] [id number] [place] 5093 Jan, [facility] [place] [facility] [address] [id number] [place] [address]- 7951 Jan, [facility] [place] [facility] [address] [id number] [place] [address]- 3460 Jan, [facility] [place] [facility] [address] [id number] [place] [address]- 5266 Jan, [facility] [place] [facility] [address] [id number] [place] [address]- 3034 Jan, [facility] [place] [facility] [address] [id number] [place] [address]- 8619 Jan, [facility] [place] [facility] [address] [id number] [place] [address]- 5403 Jan, [facility] [place] [facility] [address] [id number] [place] [address]- 0464 Jan, [facility] [place] [facility] [address] [id number] [place] [address]- 4470 Jan, [facility] [place] [facility] [address] [id number] [place] [address]- 8759 Jan, [facility] [place] [facility] [address] [id number] [place] [address]- 8537 Nov, [facility] [place] [facility] [address] [id number] [place] [address]- 7593 Nov, [facility] [place] [facility] [address] [id number] [place] [address]- 2461 Nov, [facility] [place] [facility] [address] [id number] [place] [address]- 9565 Oct, [facility] [place] [facility] [address] [id number] [place] [address]- 8628 Oct, [facility] [place] [facility] [address] [id number] [place] 7842 Oct, [facility] [place] [facility] [address] [id number] [place] [address]- 5840 Oct, [facility] [place] [facility] [address] [id number] [place] [address]- 3914 Oct, [facility] [place] [facility] [address] [id number] [place] [address]- 1190 Oct, [facility] [place] [facility] [address] [id number] [place] [address]- 9914 Oct, [facility] [place] [facility] [address] [id number] [place] [address]- 4977 Oct, [facility] [place] [facility] [address] [id number] [place] [address]- 5648 Oct, [facility] [place] [facility] [address] [id number] [place] [address]- 0898 Sep, [facility] [place] [facility] [address] [id number] [place] [address]- 2649 Sep, [facility] [place] [facility] [address] [id number] [place] [address]- 4284 Sep, [facility] [place] [facility] [address] [id number] [place] [address]- 7883 Sep, [facility] [place] [facility] [address] [id number] [place] [address]- 5230 Sep, [facility] [place] [facility] [address] [id number] [place] [address]- 4545 Sep, [facility] [place] [facility] [address] [id number] [place] [address]- 7222 Sep, [facility] [place] [facility] [address] [id number] [place] [address]- 2318 Sep, [facility] [place] [facility] [address] [id number] [place] [address]- 9103 Sep, [facility] [place] [facility] [address] [id number] [place] [address]- 9569 August, [facility] [place] [facility] [address] [id number] [place] [address]- 4473 August, [facility] [place] [facility] [address] [id number] [place] [address]- 6616 August, [facility] [place] [facility] [address] [id number] [place] [address]- 4564 August, [facility] [place] [facility] [address] [id number] [place] [address]- 9104 August, [facility] [place] [facility] [address] [id number] [place] [address]- 2343 August, [facility] [place] [facility] [address] [id number] [place] [address]- 3330 Jul, [facility] [place] [facility] [address] [id number] [place] [address]- 6010 Jul, [facility] [place] [facility] [address] [id number] [place] [address]- 1419 Jul, [facility] [place] [facility] [address] [id number] [place] [address]- 4485 Jul, [facility] [place] [facility] [address] [id number] [place] [address]- 1150 Jul, [facility] [place] [facility] [address] [id number] [place] [address]- 9181 Jul, [facility] [place] [facility] [address] [id number] [place] [address]- 0974 Jun, [facility] [place] [facility] [address] [id number] [place] [address]- 6696 Jun, [facility] [place] [facility] [address] [id number] [place] [address]- 6417 May, [facility] [place] [facility] [address] [id number] [place] [address]- 8616 May, [facility] [place] [facility] [address] [id number] [place] [address]- 7977 May, [facility] [place] [facility] [address] [id number] [place] [address]- 4136 10 May, 2013 [facility] [address] [id number] [place] [address]- 9251 Apr, [facility] [place] [facility] [address] [id number] [place] [address]- 1966 Apr, [facility] [address] [id number] [place] [address]- 5419 18 Mar, 2013 [facility] [place] [facility] [address] [id number] [place] [address]- 9494 18 Mar, 2013 [facility] [address] [id number] [place] [address]- 4402 Mar, [facility] [place] [facility] [address] [id number] [place] [address]- 3612 Mar, [facility] [address] [facility] [place] [id number] [place] [address]- 6482 Mar, [facility] [address] [id number] [place] [address]- 3814 Mar, [facility] [place] [facility] [address] [id number] [place] [address]- 5051 Feb, [facility] [address] [facility] [place] [id number] [place] [address]- 2410 Feb, [facility] [place] [facility] [address] [id number] [place] [address]- 8736 14 Feb, 2013 [facility] [place] [facility] [address] [id number] [place] [address]- 3363 14 Feb, 2013 [facility] [place] [facility] [address] [id number] [place] 9109 05 Feb, 2013 [facility] [place] [facility] [address] [facility] [id number] [place] [address]- 7287 05 Feb, 2013 [facility] [place] [facility] [address] [id number] [place] [address]- 0594 Jan, [facility] [place] [facility] [address] [id number] [place] [address]- 4943 Jan, [facility] [place] [facility] [address] [id number] [place] [address]- 2540 Jan, [facility] [place] [facility] [address] [id number] [place] [address]- 5257 Jan, [facility] [place] [facility] [address] [id number] [place] [address]- 1135 Jan, [facility] [place] [facility] [address] [id number] [place] [address]- 6463 Jan, [facility] [place] [facility] [address] [id number] [place] [address]- 9478 Dec, [facility] [place] [facility] [address] [id number] [place] [address]- 9243 Dec, [facility] [place] [facility] [address] [id number] [place] [address]- 5394 Nov, [facility] [place] [facility] [address] [id number] [place] [address]- 0008 Nov, [facility] [place] [facility] [address] [id number] [place] [address]- 6811 Oct, [facility] [place] [facility] [address] [id number] [place] [address]- 2180 Oct, [facility] [place] [facility] [address] [id number] [place] [address]- 1916 Oct, [facility] [place] [facility] [address] [id number] [place] [address]- 5839 Oct, [facility] [place] [facility] [address] [id number] [place] [address]- 1168 Oct, [facility] [place] [facility] [address] [id number] [place] [address]- 2549 Oct, [facility] [place] [facility] [address] [id number] [place] [address]- 9556 Sep, [facility] [address] [id number] [place] [address]- 4831 Sep, [facility] [place] [facility] [address] [id number] [place] [address]- 1538 Sep, [facility] [address] [id number] [place] [address]- 2429 Sep, [facility] [place] [facility] [address] [id number] [place] [address]- 2499 August, [facility] [address] [id number] [place] [address]- 9324 August, [facility] [address] [id number] [place] [address]- 1837 August, [facility] [address] [id number] [place] [address]- 7285 August, [facility] [address] [id number] [place] [address]- 6290 August, [facility] [address] [id number] [place] [address]- 9520 Jul, [facility] [place] [facility] [address] [id number] [place] [address]- 5390 Jul, [facility] [address] [id number] [place] [address]- 2515 Jul, [facility] [place] [facility] [address] [id number] [place] [address]- 1594 Jul, [facility] [place] [facility] [address] [id number] [place] [address]- 2477 Jul, [facility] [place] [facility] [address] [id number] [place] [address]- 4780 Jul, [facility] [place] [facility] [address] [id number] [place] [address]- 9167 Jul, [facility] [place] [facility] [address] [id number] [place] [address]- 0286 Jul, [facility] [address] [facility] [id number] [place] [address]- 9839 Jul, [facility] [address] [facility] [id number] [place] [address]- 9456 Jul, [facility] [address] [facility] [id number] [id number] Jun, [facility] [address] [facility] [id number] [place] [address]- 7685 Jun, [facility] [address] [facility] [place] [id number] [place] [address] Jun, [facility] [address] [facility] [place] [id number] [place] [address] Jun, [facility] [address] [id number] [place] [address] Jun, [facility] [address] [id number] [place] [address] May, [facility] [address] [id number] [place] [address] May, [facility] [address] [facility] [place] [id number], [place] [address] May, [facility] [address] [facility] [place] [id number] [place] [address] Apr, [facility] [address] [facility] [place] [id number] [place] [address] Apr, [facility] [address] [facility] [place] [id number] [place] [address] Apr, [facility] [address] [facility] [place] [id number] [place] [address] Apr, [facility] [address] [facility] [place] [id number], [place] [address] Apr, [facility] [place] [facility] [address] [id number] [place] [address] Apr, [facility] [place] [facility] [address] [id number] [place] [address] Mar, [facility] [place] [facility] [address] [id number] [place] [address] Mar, [facility] [place] [facility] [address] [id number] [place] [address] Mar, [facility] [place] [facility] [address] [id number] [place] [address] Mar, [facility] [place] [facility] [address] [id number] [place] [address] Feb, [facility] [place] [facility] [address] [id number] [place] [address] Feb, [facility] [place] [facility] [address] [id number] [place] [address] Feb, [facility] [place] [facility] [address] [id number] [place] [address] Feb, [facility] [place] [facility] [address] [id number], [place] [address] Feb, [facility] [place] [facility] [address] [facility] [place] [id number], [place] [address] Feb, [facility] [place] [facility] [address] [id number], [place] [address] Feb, [facility] [place] [facility] [address] [id number], [place] [address] Feb, [facility] [place] [facility] [address] [id number], [place] [address] Feb, [facility] [place] [facility] [address] [facility] [place] [id number], [place] [address] Feb, [facility] [place] [facility] [address] [id number], [place] [address] Feb, [facility] [place] [facility] [address] [id number] [place] [address] Feb, [facility] [place] [facility] [address] [id number], [place] [address] Feb, [facility] [place] [facility] [address] [facility] [place] [id number] [place] [address] Feb, [facility] [place] [facility] [address] [id number] [place] [address] Feb, [facility] [place] [facility] [address] [facility] [place] [id number] [place] [address] Feb, [facility] [place] [facility] [address] [facility] [place] [id number] [place] [address] Jan, [facility] [place] [facility] [address] [facility] [place] [id number], [place] [address] Jan, [facility] [place] [facility] [address] [facility] [place] [id number], [place] [address] 31 Jan, 2012 [facility] [place] [facility] [address] [facility] [place] [id number], [place] [address] 31 Jan, 2012 [facility] [place] [facility] [address] [facility] [place] [id number], [place] [address] 30 Jan, 2012 [facility] [place] [facility] [address] [facility] [place] [id number], [place] [address] Jan, [facility] [place] [facility] [address] [facility] [place] [id number], [place] [address] 25 Jan, 2012 [facility] [place] [facility] [address] [facility] [place] [id number], [place] [address] 16 Jan, 2012 [facility] [place] [facility] [address] [facility] [place] [id number], [place] [address] 16 Jan, 2012 [facility] [place] [facility] [address] [facility] [place] [id number], [place] [address] 15 Jan, 2012 [facility] [place] [facility] [address] [id number] [place] [address] 15 Jan, 2012 [facility] [place] [facility] [address] [id number] [place] [address] 01 Jan, 2012 [facility] [place] [facility] [address] [id number] [place] [address] 26 Dec, 2011 [facility] [place] [facility] [address] [id number] [place] [address] 26 Dec, 2011 [facility] [place] [facility] [address] [id number] [place] [address] 24 Dec, 2011 [facility] [place] [facility] [address] [id number] [place] [address] 23 Dec, 2011 [facility] [place] [facility] [address] [id number] [place] [address] 22 Dec, 2011 [facility] [place] [facility] [address] [id number] [place] [address] 21 Dec, 2011 [facility] [place] [facility] [address] [id number] [place] [address] 2547 20 Dec, 2011 [facility] [place] [facility] [address] [id number] [place] [address] 2541 20 Dec, 2011 [facility] [place] [facility] [address] [id number] [place] [address] 07 Dec, 2011 [facility] [place] [facility] [address] [id number] [place] [address] 2546 06 Sep, 2011 [facility] [place] [facility] [address] [id number] [place] [address] 2546 06 Sep, 2011 [facility] [place] [facility] [address] [id number] [place] [address] 2546 05 Dec, 2011 [facility] [place] [facility] [address] [id number] [place] [address] 23 Nov, 2011 [facility] [place] [facility] [address] [id number] [place] [address] Nov, [facility] [place] [facility] [address] [id number] [place] [address] Nov, [facility] [place] [facility] [address] [id number] [place] [address] Nov, [facility] [place] [facility] [address] [id number] [place] [address] Nov, [facility] [place] [facility] [address] [id number] [place] [address] 18[address] Nov, [facility] [place] [facility] [address] [id number] [place] [address]703 Nov, [facility] [place] [facility] [address] [id number] [place] [address] 0[address] Nov, [facility] [place] [facility] [address] [id number] [place] [address] 47[address] Oct, [facility] [place] [facility] [address] [id number] [place] [address] Oct, [facility] [place] [facility] [address] [id number] [place] [address]161 Oct, [facility] [place] [facility] [address] [id number] [place] [address]656 Oct, [facility] [place] [facility] [address] [id number] [place] [address] Oct, [facility] [place] [facility] [address] [id number] [place] [address] Oct, [facility] [place] [facility] [address] [id number] [place] [address] Oct, [facility] [place] [facility] [address] [id number] [place] [address] Sep, [facility] [place] [facility] [address] [id number] [place] [address] 99[address] Sep, [facility] [place] [facility] [address] [id number] [place] [address] 44[address] August, [facility] [address] [id number] [place] [address] August, [facility] [place] [facility] [address] [id number] [place] [address] 9816 August, [facility] [address] [id number] [place] [address] 6[address] August, [facility] [place] [facility] [address] [id number] [place] [address] Jul, [facility] [address] [id number] [place] [address] 2617 Jul, [facility] [place] [facility] [address] [id number] [place] [address] 1775 Jul, [facility] [address] [id number] [place] [address] 7929 Jul, [facility] [place] [facility] [address] [id number] [place] [address] 0671 Jul, [facility] [place] [facility] [address] [id number] [place] [address] 9663 Jul, [facility] [place] [facility] [address] [id number] [place] [address] 6860 Jul, [facility] [place] [facility] [address] [id number] [place] [address] 6880 Jul, [facility] [place] [facility] [address] [id number] [place] [address] 6[address] Jul, [facility] [place] [facility] [address] [id number] [place] [address] 28[address] Jun, [facility] [place] [facility] [address] [id number] [place] [address] Jun, [facility] [place] [facility] [address] [id number] [place] [address] 52[address] Jun, [facility] [place] [facility] [address] [id number] [place] [address] 14 Jun, 2011 [facility] [place] [facility] [address] [id number] [place] [address] 1997 Jun, [facility] [place] [facility] [address] [id number] [place] [address] 4[address] Jun, [facility] [place] [facility] [address] [id number] [place] [address] 8674 Jun, [facility] [place] [facility] [address] [id number] [place] [address] May, [facility] [place] [facility] [address] [id number] [place] [address] 8725 24 May, 2011 [facility] [place] [facility] [address] [id number] [place] [address] 6799 May, [facility] [place] [facility] [address] [id number] [place] [address] 8837 May, [facility] [place] [facility] [address] [id number] [place] [address] 0261 May, [facility] [place] [facility] [address] [id number] [place] [address] Apr, [facility] [place] [facility] [address] [id number] [place] [address]- 1811 Apr, [facility] [place] [facility] [address] [id number] [place] [address] 2219 Apr, [facility] [place] [facility] [address] [id number] [place] [address]- 1483 Apr, [facility] [place] [facility] [address] [id number] [place] [address] 3721 Apr, [facility] [place] [facility] [address] [id number] [place] [address] 7169 Mar, [facility] [place] [facility] [address] [id number], [place] [address] Mar, [facility] [place] [facility] [address] [id number] [place] [address]- 9989 Mar, [facility] [place] [facility] [address] [id number] [place] [address] Mar, [facility] [place] [facility] [address] [facility] [place] [id number] [place] [address] 7448 Mar, [facility] [place] [facility] [address] [id number] [place] [address]- 7671 Mar, [facility] [place] [facility] [address] [id number] [place] [address]- 4308 Mar, [facility] [place] [facility] [address] [id number] [place] [address] 1271 Feb, [facility] [place] [facility] [address] [facility] [place] [id number], [place] [address] Feb, [facility] [place] [facility] [address] [id number] [place] [address] 3142 Feb, [facility] [place] [facility] [address] [facility] [place] [id number] [place] [address]- 28[address] Feb, [facility] [place] [facility] [address] [facility] [place] [id number] [place] [address]- 1240 Jan, [facility] [place] [facility] [address] [id number], [place] [address] 1685 Jan, [facility] [place] [facility] [address] [id number], [place] [address]- 5854 Jan, [facility] [place] [facility] [address] [id number] [place] [address]- 4499 Jan, [facility] [place] [facility] [address] [facility] [id number], [place] [address] Nov, [facility] [place] [facility] [address] [facility] [place] [id number] [place] [address]- 6206 30 Mar, 2010 [facility] [place] [facility] [id number] [address] Mar, [facility] [id number] [address] Mar, [facility] [id number] [address] Mar, [facility] [id number] [address] Mar, [facility] [id number] [address] Mar, [facility] [id number] [place] [address]- [address]659 Feb, [facility] [id number] Feb, [facility] [id number], [place] [address] Jan, [facility] [id number], [place] [address] Jan, [facility] [id number], [place] [address] 9990 Jan, IMMUNIZATIONS No Known Immunizations SOCIAL HISTORY [...] 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
--- OUTSIDE RECORDS SUMMARY | 2018-05-29 08:25 | XMS REPORT ---
Author Author YUSRA SHAFER [facility] Address Unknown Care Team Providers Care Server Software Engineer Name Role Phone YUSRA SHAFER Unavailable PROBLEMS Type Condition ICD9-CM Code [id number] Code Onset Dates Condition Status SNOMED Code Problem Long-term use of high-risk medication Z79.899 Active 323196349 Problem Abnormal chest CT R93.8 Active 751272014 Problem Low back pain M54.5 Active 446230571 Problem Generalized anxiety disorder F41.1 Active 40449853 Problem Dysthymic disorder F34.1 Active 08931408 Problem Coronary artery disease involving teller coronary artery of teller heart, angina presence unspecified I25.10 Active 2288224388875 Problem Depressed F32.9 Active 40806011 Problem Fibromyalgia M79.7 Active 428836811 Problem Hypothyroid E03.9 Active 94342364 Problem Essential (primary) hypertension I10 Active 19118375 Problem Insomnia G47.00 Active 178314081 Problem Vitamin D deficiency E55.9 Active 60453518 Problem Anemia in chronic kidney disease D63.1 Active 576861863941528 Problem Chronic kidney disease, unspecified N18.9 Active 918768931 Problem Body mass index (BMI) of 40.0-44.9 in adult Z68.41 Active 771056131 Problem Stage 3 chronic kidney disease N18.3 Active 658583810 Problem Restless leg G25.81 Active 51134629 Problem Palpitations R00.2 Active 57169763 Problem Asthma J45.909 Active 248970623 Problem Primary osteoarthritis of left knee M17.12 Active 388034846 Problem Bipolar disorder, current episode manic without psychotic features F31.10 Active 494890923 Problem Mood disorder F39 Active 64652154 Problem Degenerative tear of medial meniscus of left knee M23.204 Active 009328317 Problem History of colon polyps Z86.010 Active 161933526 Problem Asthma with acute exacerbation in adult J45.901 Active 547542801 Problem Chronic kidney disease, stage 4 (severe) N18.4 Active 782005375 Problem Functional diarrhea K59.1 Active 02161940 Problem Hypokalemia E87.6 Active 02705854 Problem Mixed stress and urge urinary incontinence N39.46 Active 459275452 Problem History of anemia Z86.2 Active 667881164 Problem Other seasonal allergic rhinitis J30.2 Active 771632258 ALLERGIES No Known Allergies ENCOUNTERS Encounter Location Date Diagnosis [place] [address] [address] August, [place] [address] 30071- 9030 Jun, Orthostatic hypotension I95.1 ; Chronic kidney disease, stage 4 (severe) N18.4 ; Chest wall discomfort R07.89 and Body mass index (BMI) of 40.0-44.9 in adult Z68.41 [place] [address] 10331- 1127 Jun, [place] [address] 57218- 1225 Jun, Orthostatic hypotension I95.1 [place] [address] 71671- 1012 Jun, [facility] [address] [place] [id number] [place] [address] 90810 -6407 Jun, Orthostatic hypotension I95.1 ; Dysuria R30.0 and Acute cystitis without hematuria N30.00 [place] [address] [place] [id number] [place] [address] 49975- 5332 Jun, [place] [address] 59563- 7509 Jun, Chronic kidney disease, stage 4 (severe) N18.4 [place] [address] [place] [id number] [place] [address] 50376- 7181 Jun, Fibromyalgia M79.7 [place] [address] 59474- 0907 Jun, [facility] [address] [address] Jun, [facility] [address] [place] [id number] [place] [address] 87906- [address] May, [address] R93.8 and Stage 3 chronic kidney disease N18.3 [facility] [address] [place] [id number] [place] [address] 87289- 3081 May, Chronic kidney disease, stage 4 (severe) N18.4 [facility] [id number] [place] [address] 99825- 7330 May, Chronic kidney disease, stage 4 (severe) N18.4 [facility] [id number] [place] [address] 21768- [address] May, [address] R93.8 [facility] [id number] [place] [address] 07739- 7277 May, [facility] [id number] [place] [address] 50450- 7672 May, [facility] [id number] [place] [address] 46527- 5743 May, Generalized anxiety disorder F41.1 and Major depressive disorder, recurrent episode with anxious distress F33.9 [facility] [id number] [place] [address] 75139- 9014 May, Mood disorder F39 [facility] [id number] [place] [address] 49499- 7102 Apr, [facility] [address] [place] [id number] [place] [address] 09573- 3531 Apr, Infected skin lesion L08.9 and Muscle strain of right shoulder region, initial encounter S46.911A [facility] [id number] [place] [address] 33158- 4661 Apr, Generalized anxiety disorder F41.1 and Major depressive disorder, recurrent episode with anxious distress F33.9 [facility] [address] [place] [id number] [place] [address] 98412- 1601 Apr, [place] [address] [place] [id number] [place] [address] 20680- 5289 Apr, Recent urinary tract infection Z87.440 and Hypothyroid E03.9 [place] [address] 88950- 1238 Apr, Generalized anxiety disorder F41.1 and Major depressive disorder, recurrent episode with anxious distress F33.9 [place] [address] 49122- 2995 Apr, Recent urinary tract infection Z87.440 [place] [address] [place] [id number] [place] [address] 35958- 7766 Mar, [facility] [address] [place] [id number] [place] [address] 78210 -3893 Mar, Dysuria R30.0 ; Acute cystitis without hematuria N30.00 and BMI 40.0-44.9, adult Z68.41 [place] [address] [place] [id number] [place] [address] 38749- 0445 Mar, [place] [address] [place] [id number] [place] [address] 04696- 5115 Mar, [place] [address] [place] [id number] [place] [address] 65944- 9418 Mar, Generalized anxiety disorder F41.1 and Major depressive disorder, recurrent episode with anxious distress F33.9 [place] [address] [place] [id number] [place] [address] 87928- 3735 Feb, Conjunctivitis, bacterial H10.9 [place] [address] [place] [id number] [place] [address] 59757- 6880 Feb, [facility] [address] 55035 -5344 Feb, Conjunctivitis, bacterial H10.9 [facility] [address] [place] [id number] [place] [address] 28836- 1053 Feb, [facility] [address] [place] [id number] [place] [address] 59330 -1973 Feb, Dysuria R30.0 ; Acute cystitis N30.00 and BMI 40.0-44.9, adult Z68.41 [facility] [address] 43327- 4239 Feb, [facility] [address] 57478- 5199 Feb, Generalized anxiety disorder F41.1 and Major depressive disorder, recurrent episode with anxious distress F33.9 [place] [address] 94180- 8001 Feb, Mood disorder F39 and BMI 40.0-44.9, adult Z68.41 [facility] [address] [place] [id number] [place] [address] 88501- 4106 Jan, [facility] [address] 11915- 3341 Jan, [place] [address] [place] [id number] [place] [address] 46521- 6062 Jan, Hypothyroid E03.9 [facility] [address] [place] [id number] [place] [address] 70057- 8237 Jan, [facility] [address] [place] [id number] [place] [address] 10165- 1954 04 Jan, 2017 Chronic kidney disease, unspecified N18.9 ; Hypokalemia E87.6 ; Essential (primary) hypertension I10 ; Fibromyalgia M79.7 ; Coronary artery disease involving teller coronary artery of teller heart, angina presence unspecified I25.10 ; Hypothyroid E03.9 and Encounter for immunization Z23 [facility] [address] [place] [id number] [place] [address] 33672- 2427 04 Jan, 2017 Hypothyroid E03.9 [facility] [id number] [place] [address] 76900- 6667 02 Jan, 2017 [facility] [id number] [place] [address] 81489- 7911 28 Dec, 2016 Vitamin D deficiency E55.9 [facility] [address] [place] [id number] [place] [address] 95184- 8222 28 Dec, 2016 Primary osteoarthritis of left knee M17.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 [facility] [address] [place] [id number] [place] [address] 71958- 3942 19 Dec, 2016 Fibromyalgia M79.7 [facility] [address] [place] [id number] [place] [address] 23169- 1984 18 Dec, 2016 Mood disorder F39 [facility] [address] [place] [id number] [place] [address] 77565- 4280 13 Dec, 2016 [facility] [id number] [place] [address] 63741- 9762 13 Dec, 2016 Generalized anxiety disorder F41.1 and Major depressive disorder, recurrent episode with anxious distress F33.9 [facility] [id number] [place] [address] 27563- 8630 11 Dec, 2016 [facility] [id number] [place] [address] 44355- 5884 08 Dec, 2016 Streptococcal meningitis G00.2 [facility] [id number] [place] [address] 82026- 0543 07 Dec, 2016 Streptococcal meningitis G00.2 [facility] [id number] [place] [address] 32098- 5190 07 Dec, 2016 [facility] [id number] [place] [address] 84640- 3699 06 Dec, 2016 Streptococcal meningitis G00.2 [facility] [id number] [place] [address] 23554- 4331 Dec, [facility] [id number] [place] [address] 09178- 7966 Dec, Major depressive disorder, recurrent episode with anxious distress F33.9 [facility] [id number] [place] [address] 23994- 5867 Nov, Fever, unspecified fever cause R50.9 [facility] [address] [place] [id number] [place] [address] 18508- 6101 Nov, [facility] [id number] [place] [address] 95755- 0017 Nov, Hypothyroid E03.9 [facility] [id number] [place] [address] 01644- 0877 Nov, Generalized anxiety disorder F41.1 and Major depressive disorder, recurrent episode with anxious distress F33.9 [facility] [id number] [place] [address] 18688- 5578 Nov, [facility] [address] [id number] [place] [address] [id number] Oct, Dental examination Z01.20 [facility] [id number] [place] [address] 39524- 9019 Oct, Generalized anxiety disorder F41.1 and Major depressive disorder, recurrent episode with anxious distress F33.9 [facility] [id number] [place] [address] 19665- 3842 Oct, Chronic kidney disease, stage 4 (severe) N18.4 [facility] [id number] [place] [address] 09076- 2107 Oct, [facility] [address] [place] [id number] [place] [address] 78565- 9437 Oct, Fibromyalgia M79.7 [facility] [id number] [place] [address] 04489- 7228 Oct, [facility] [address] [place] [id number] [address]- 2253 Oct, Generalized anxiety disorder F41.1 ; Major depressive disorder, recurrent episode with anxious distress F33.9 and Bipolar disorder, current episode manic without psychotic features F31.10 [place] [address], [place] [address]- 3346 Sep, [place] [id number] [place] [address] 93356- 0993 Sep, [place] [id number] [place] [address] 37085- 2025 Sep, Vitamin D deficiency E55.9 [place] [id number] [place] [address] 59853- 3007 Sep, Vitamin D deficiency E55.9 [place] [id number] [place] [address] 46624- 1679 Sep, [place] [id number] [place] [address] 69714- 7338 Sep, Chronic kidney disease, stage 4 (severe) N18.4 ; Hypothyroid E03.9 ; Restless leg G25.81 ; Fibromyalgia M79.7 ; Essential ( primary) hypertension I10 ; Vitamin D deficiency E55.9 ; Dyspepsia R10.13 ; Anemia in chronic kidney disease D63.1 ; Chronic kidney disease, unspecified N18.9 ; Coronary artery disease involving teller coronary artery of teller heart , angina presence unspecified I25.10 ; Screening breast examination Z12.39 and Low back pain M54.5 [id number] [place] [address] 25282- 1777 August, Generalized anxiety disorder F41.1 and Major depressive disorder, recurrent episode with anxious distress F33.9 [place] [address] [place] [id number] [place] [address] 42082- 7447 August, Generalized anxiety disorder F41.1 and Major depressive disorder, recurrent episode with anxious distress F33.9 [place] [id number] [address]- 6372 August, Fibromyalgia M79.7 [place] [address] [place] [id number] [place] [address] 87191- 7102 Jul, Generalized anxiety disorder F41.1 and Major depressive disorder, recurrent episode with anxious distress F33.9 [place] [address] [place] [id number] [place] [address] 63031- 8948 Jul, Fibromyalgia M79.7 [place] [address] [place] [id number] [place] [address] 43831- 1538 Jul, Generalized anxiety disorder F41.1 [place] [address] [place] [id number] [place] [address] 12685- 8892 May, [place] [address] [place] [id number] [place] [address] 17342- 5998 May, Hypothyroid E03.9 [place] [address] [place] [id number] [place] [address] 29048- 9247 May, Chronic kidney disease, stage 4 (severe) N18.4 ; Hypothyroid E03.9 ; Restless leg G25.81 ; Fibromyalgia M79.7 ; Essential ( primary) hypertension I10 ; Vitamin D deficiency E55.9 ; Dyspepsia R10.13 ; Acute non-recurrent maxillary sinusitis J01.00 ; Anemia in chronic kidney disease D63.1 ; Chronic kidney disease, unspecified N18.9 and Coronary artery disease involving teller coronary artery of teller heart, angina presence unspecified I25.10 [place] [id number] [place] [address] 47684- 7969 May, Vitamin D deficiency, unspecified E55.9 [place] [address] [place] [id number] [place] [address] 11924- 2057 May, Generalized anxiety disorder F41.1 and Major depressive disorder, recurrent episode with anxious distress F33.9 [place] [address] [place] [id number] [place] [address] 91301- 7576 09 Luis, 2017 Pain in right knee M25.561 and Pain in left knee M25.562 [facility] [id number] [place] [address] 92267- 5379 Apr, [facility] [address] [id number] [place] [address] 50397- 1886 Apr, [facility] [address] [id number] [place] [address] 61940- 4772 Apr, [facility] [address] [place] [id number] [place] [address] 37828- 0485 Mar, Generalized anxiety disorder F41.1 and Major depressive disorder, recurrent episode with anxious distress F33.9 [place] [address] [place] [id number] [place] [address] 84557- 8085 Mar, Generalized anxiety disorder F41.1 and Major depressive disorder, recurrent episode with anxious distress F33.9 [place] [address] [place] [id number] [place] [address] 74424- 3190 Mar, [facility] [address] [id number] [place] [address] 05694- 0400 Mar, [place] [address] [place] [id number] [place] [address] 08940- 1323 Mar, [place] [address] [place] [id number] [place] [address] 55514- 5156 Mar, Asthma J45.909 and Fibromyalgia M79.7 [place] [address] [place] [id number] [place] [address] 45295- 9782 Mar, Chronic kidney disease, stage 4 (severe) N18.4 ; Vitamin D deficiency E55.9 and Essential (primary) hypertension I10 [place] [address] [place] [id number] [place] [address] 65059- 9018 Feb, [place] [address] [place] [id number] [place] [address] 17428- 0867 Feb, Dysuria R30.0 ; Mixed stress and urge urinary incontinence N39.46 ; Fibromyalgia M79.7 and Chronic kidney disease, stage IV (severe) N18.4 [facility] [address] [id number] [place] [address] 33025 2546 Feb, Chronic kidney disease, stage 4 (severe) N18.4 [facility] [address] [place] [id number] [place] [address], [place] [address] 2546 Feb, Chronic kidney disease, stage 4 (severe) N18.4 [facility] [address] [place] [id number] [place] [address], [place] [address] 2546 Feb, [facility] [address] [place] [id number] [place] [address], [place] [address] 2546 Feb, Vitamin D deficiency, unspecified E55.9 [facility] [address] [id number] [place] [address] 19223 2546 Jan, [facility] [address] [id number] [place] [address] 19903 2546 Jan, [facility] [address] [id number] [place] [address] 65233 2546 30 Dec, 2015 [facility] [address] [id number] [place] [address] 60326 2546 Dec, Chronic kidney disease, stage 4 (severe) N18.4 [facility] [id number] [place] [address] 17360 2546 Dec, Dysthymic disorder F34.1 and Generalized anxiety disorder F41.1 [facility] [address] [address] 2546 27 Dec, 2015 [facility] [address] [place] [id number] [place] [address], [place] [address] 2546 26 Dec, 2015 [facility] [id number] [place] [address] 80090 2546 08 Dec, 2015 Dysthymic disorder F34.1 and Generalized anxiety disorder F41.1 [facility] [address] [place] [address] 45933- 0460 Dec, Dysuria R30.0 ; Chronic kidney disease, stage 4 (severe) N18.4 ; Hypertension I10 ; Dyspepsia R10.13 ; Yeast dermatitis B37.2 ; Palpitations R00.2 ; Hypothyroid E03.9 ; Functional diarrhea K59.1 and Other seasonal allergic rhinitis J30.2 [facility] [address] 76668 -2301 Dec, [facility] [address] 92051 -0439 Nov, Dysuria R30.0 and Stress incontinence N39.3 [place] [address] 67748- 3324 Nov, [place] [address] 29860- 8235 Nov, [place] [address] 14288- 8148 Nov, Osteoarthritis of knees, bilateral M17.0 [place] [address] 74367- 3102 Nov, Dysthymic disorder F34.1 and Generalized anxiety disorder F41.1 [place] [address] 58220- 1088 Nov, [place] [address] 30164- 6520 Nov, [place] [address] 30369- 3903 Nov, Urgency of urination R39.15 [place] [address] 34494- 6640 Nov, [place] [address] 23569- 7962 Nov, Chronic kidney disease, stage 4 (severe) N18.4 [place] [id number] [place] [address] 38030- 2734 Oct, Hypertension I10 ; Coronary artery disease involving teller coronary artery of teller heart, angina presence unspecified I25.10 ; Palpitations R00.2 ; Hypothyroid E03.9 ; Right foot pain M79.671 ; Functional diarrhea K59.1 and Other seasonal allergic rhinitis J30.2 [place] [address] 16017- 0683 Oct, Dysthymic disorder F34.1 and Generalized anxiety disorder F41.1 [place] [address] [id number] [place] [address] 37589- 3687 Sep, [place] [address] [id number] [place] [address] 44987- 3138 Sep, [place] [address] [place] [id number] [place] [address] 79139- 8487 Sep, [place] [address] [id number] [place] [address] 14499- 4549 Sep, [place] [address] [place] [id number] [place] [address] 81021- 9801 Sep, [place] [address] [place] [id number] [place] [address] 72133- 6527 Sep, Dysthymic disorder F34.1 and Generalized anxiety disorder F41.1 [place] [id number] [place] [address] 62034- 1303 Sep, Asthma with acute exacerbation in adult J45.901 ; Dysuria R30.0 ; Chronic kidney disease, stage 4 (severe) N18.4 and History of anemia Z86.2 [place] [id number] [place] [address] 86926- 6607 Sep, Generalized anxiety disorder F41.1 and Dysthymic disorder F34.1 [place] [id number] [place] [address] 38393- 2049 August, Screening breast examination Z12.39 and Acute recurrent maxillary sinusitis J01.01 [place] [id number] [place] [address] 57182- 3737 August, Osteoarthritis of knees, bilateral M17.0 [place] [address] 83318- 0948 August, Chronic kidney disease, stage 4 (severe) N18.4 ; Acute non- recurrent maxillary sinusitis J01.00 ; Urinary problem R39.89 ; Bowel habit changes R19.4 ; Functional diarrhea K59.1 and History of colon polyps Z86.010 [place] [address] 03730- 9265 Jul, Dysthymic disorder F34.1 and Generalized anxiety disorder F41.1 [place] [address] 67830- 6723 Jul, [place] [address] 10083- 4676 Jul, Dysthymic disorder F34.1 ; Generalized anxiety disorder F41.1 and cork tipper use of drug Z79.899 [place] [address] 90389- 8401 Jul, [place] [address] [id number] [place] [address] 65330- 8990 Jun, [place] [id number] [place] [address] 53580- 8606 Jun, [place] [id number] [place] [address] 37410- 7194 May, [place] [address] 89480- 6378 May, Dysthymic disorder F34.1 and Generalized anxiety disorder F41.1 [place] [address] 57278- 8915 Apr, Kidney disease N28.9 [place] [id number] [place] [address] 38720- 3079 Apr, Generalized anxiety disorder F41.1 and Dysthymic disorder F34.1 [place] [address] 96575- 1442 Apr, Chronic kidney disease, stage 4 (severe) N18.4 [place] [address] 73947- 2759 Apr, Generalized anxiety disorder F41.1 ; Major depression, recurrent F33.9 and Sleep disturbance G47.9 [place] [address] 796509- [address] Mar, Generalized anxiety disorder F41.1 and Dysthymic disorder F34.1 [place] [address] [address] Mar, Generalized anxiety disorder F41.1 ; Dysthymic disorder F34.1 and Insomnia G47.00 [place] [address] [address] Mar, [place] [address] [address] Mar, [place] [address] [address] Mar, Osteoarthritis of knees, bilateral M17.0 [place] [address] [address] Mar, Hypertension I10 ; Hypothyroid E03.9 ; Dysthymic disorder F34.1 ; Chronic kidney disease, stage 4 (severe) N18.4 and Nausea & vomiting R11.2 [place] [address] [address]- 0691 Mar, Generalized anxiety disorder F41.1 ; Dysthymic disorder F34.1 and Insomnia G47.00 [place] [address] 25088- 4545 Mar, Dehydration E86.0 ; Chronic kidney disease, stage 4 (severe ) N18.4 and Nausea & vomiting R11.2 [facility] [id number] [place] [address] 61608 -1053 Mar, Gastroenteritis K52.9 [facility] [address] [place], [place] [id number] [place] [address] 90660- 4470 Mar, [place] [address] [place] [id number] [place] [address] 21247- 9522 Mar, [place] [id number] [place] [address] 75329- 7831 Feb, Dysthymic disorder F34.1 and Generalized anxiety disorder F41.1 [place] [id number] [place] [address] 53613- 4471 Jan, UTI (urinary tract infection) N39.0 ; Asthma J45.909 ; Coronary artery disease involving teller coronary artery of teller heart, angina presence unspecified I25.10 ; Hypertension I10 ; Hypothyroid E03.9 ; Vitamin D deficiency E55.9 ; Insomnia G47.00 ; Palpitations R00.2 ; Depressed F32.9 ; Restless leg G25.81 and Anxiety F41.[id number] [place] [address] 48301- 5133 Jan, Dysthymic disorder F34.1 and Generalized anxiety disorder F41.1 [place] [address] [place] [id number] [place] [address] 99729- 2077 Jan, [place] [address] [place] [id number] [place] [address] 70631- 8829 Dec, [place] [id number] [place] [address] 36424- 5806 Dec, Alkalosis 276.3 ; Chronic kidney disease, 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.4 ; Hyperpotassemia 276.7 ; Secondary hyperparathyroidism, renal 588.81 ; Proteinuria 791.0 ; Unspecified vitamin D deficiency 268.9 ; Anemia in chronic kidney disease 285.21 ; Other and unspecified hyperlipidemia 272.4 ; Hypertension, essential, benign 401.1 and Chronic kidney disease (CKD), stage III (moderate) 585.3 [place] [id number] [place] [address] 28820- 3360 Dec, [place] [address] 78007- 8867 Dec, Depressive disorder, not elsewhere classified 311 and Generalized anxiety disorder 300.02 [place] [address] [place] [id number] [place] [address] 85103- 8478 Dec, [address] 81789- 7472 Dec, [address] 16544- 1266 Nov, Depressive disorder, not elsewhere classified 311 and Generalized anxiety disorder 300.02 [place] [address] [place] [id number] [place] [address] 97343- 1907 Nov, Arthritis of both knees 716.[address] 57480- 6152 Nov, PAF (paroxysmal atrial fibrillation) 427.31 ; CAD (coronary artery disease) 414.00 ; Chest pain 786.50 and Chronic kidney disease (CKD) stage G4/A1, severely decreased glomerular filtration rate (GFR) between 15-29 mL/min/1.73 square meter and albuminuria creatinine ratio less than 30 mg/g 585.4 [place] [id number] [place] [address] 44090- 7994 Oct, Coronary atherosclerosis of unspecified type of vessel, teller or graft 414.00 ; Chronic kidney disease, 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.4 ; Hypertension 401.9 and Edema 782.3 [place] [id number] [place] [address] 11584- 7852 Oct, Depressive disorder, not elsewhere classified 311 and Generalized anxiety disorder 300.02 [facility] [address] [place] [id number] [place] [address] 08780- 4981 Oct, Depressive disorder, not elsewhere classified 311 and Generalized anxiety disorder 300.02 [facility] [address] [place] [id number] [place] [address] 78466- 4435 Oct, [facility] [address] [place] [id number] [place] [address] 15015- 6222 Oct, [facility] [address] 69100- 9968 Sep, [facility] [address] 30523- 1639 Sep, Chronic kidney disease, 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.4 [place] [address] 60929- 1121 Sep, [facility] [address] 86988- 7426 Sep, Coronary atherosclerosis of unspecified type of vessel, teller or graft 414.00 ; Hypertension 401.9 ; Edema 782.3 and Hypothyroidism 244.9 [place] [id number] [place] [address] 14088- 1382 Sep, Coronary atherosclerosis of unspecified type of vessel, teller or graft 414.00 ; Hypertension 401.9 ; Fibromyalgia 729.1 ; Edema 782.3 ; Hypothyroidism 244.9 and Anemia 285.9 [facility] [address] [place] [id number] [place] [address] 79293- 3195 Sep, Anxiety disorder, unspecified 300.00 and Depressive disorder , not elsewhere classified 311 [facility] [address] 54802- 4429 Sep, [facility] [address] [place] [id number] [place] [address] 22322- 2243 August, Generalized anxiety disorder 300.02 [facility] [address] 04638- 1630 August, Closed fracture of lateral malleolus 824.2 [facility] [address] [id number] [place] [address]- 9556 14 Jul, 2014 [facility] [address] [facility] [id number], [place] [address]- 1505 Jul, [facility] [address] [facility] [id number], [place] [address]- 7088 Jun, [facility] [address] [id number], [place] [address]- 0780 Jun, [facility] [address] [facility] [id number], [place] [address]- 9050 Jun, [facility] [address] [id number] [address]- 3317 Jun, [facility] [address] [id number], [place] [address]- 7512 Jun, [facility] [address] [facility] [id number], [place] [address]- 4547 Jun, [facility] [address] [place] [id number], [place] [address]- 5666 May, [facility] [address] [facility] [id number], [place] [address]- 1783 19 May, 2014 [facility] [address] [id number], [place] [address]- 1257 18 May, 2014 [facility] [address] [facility] [id number], [place] [address]- 3877 18 May, 2014 [facility] [address] [facility] [id number] 1311 16 May, 2014 [facility] [place] [facility] [address] [facility] [id number] 4846 16 May, 2014 [facility] [address] [id number] 3418 13 May, 2014 [facility] [place] [facility] [address] [id number] [place] [address]- 5824 13 May, 2014 [facility] [place] [facility] [address] [id number] [place] [address]- 6036 10 May, 2014 [facility] [place] [facility] [address] [id number] [place] [address]- 4391 May, [facility] [place] [facility] [address] [id number] [place] [address]- 8258 Apr, [facility] [place] [facility] [address] [id number] [place] [address]- 0344 Apr, [facility] [place] [facility] [address] [id number] [place] [address]- 7879 Mar, [facility] [place] [facility] [address] [id number] [place] [address]- 7629 Mar, [facility] [place] [facility] [address] [id number] [place] [address]- 1526 Mar, [facility] [place] [facility] [address] [id number] [place] [address]- 2311 Mar, [facility] [place] [facility] [address] [id number] [place] [address]- 0459 Mar, [facility] [place] [facility] [address] [id number] [place] [address]- 9840 Mar, [facility] [place] [facility] [address] [id number] [place] [address]- 2764 Mar, [facility] [place] [facility] [address] [id number] [place] [address]- 6367 Feb, [facility] [place] [facility] [address] [id number] [place] [address]- 0495 Feb, [facility] [place] [facility] [address] [id number] [place] [address]- 7941 Feb, [facility] [place] [facility] [address] [id number] [place] [address]- 2728 Jan, [facility] [place] [facility] [address] [id number] [place] [address]- 4904 Jan, [facility] [place] [facility] [address] [id number] [place] [address]- 2256 Jan, [facility] [place] [facility] [address] [id number] [place] [address]- 4614 Jan, [facility] [place] [facility] [address] [id number] [place] [address]- 5381 Jan, [facility] [place] [facility] [address] [id number] [place] [address]- 9096 Jan, [facility] [place] [facility] [address] [id number] [place] [address]- 1004 Jan, [facility] [place] [facility] [address] [id number] [place] [address]- 8156 Jan, [facility] [place] [facility] [address] [id number] [place] [address]- 3620 Jan, [facility] [place] [facility] [address] [id number] [place] [address]- 4135 Jan, [facility] [place] [facility] [address] [id number] [place] [address]- 6327 Nov, [facility] [place] [facility] [address] [id number] [place] [address]- 4310 Nov, [facility] [place] [facility] [address] [id number] [place] [address]- 8502 Nov, [facility] [place] [facility] [address] [id number] [place] [address]- 6629 Oct, [facility] [place] [facility] [address] [id number] [place] [address]- 6371 Oct, [facility] [place] [facility] [address] [id number] [place] [address]- 3565 Oct, [facility] [place] [facility] [address] [id number] [place] [address]- 0018 Oct, [facility] [place] [facility] [address] [id number] [place] [address]- 1632 Oct, [facility] [place] [facility] [address] [id number] [place] [address]- 4409 Oct, [facility] [place] [facility] [address] [id number] [place] [address]- 8651 Oct, [facility] [place] [facility] [address] [id number] [place] [address]- 9858 Oct, [facility] [place] [facility] [address] [id number] [place] [address]- 1601 Oct, [facility] [place] [facility] [address] [id number] [place] [address]- 8808 Sep, [facility] [place] [facility] [address] [id number] [place] [address]- 0324 Sep, [facility] [place] [facility] [address] [id number] [place] [address]- 3306 Sep, [facility] [place] [facility] [address] [id number] [place] [address]- 1438 Sep, [facility] [place] [facility] [address] [id number] [place] [address]- 3435 Sep, [facility] [place] [facility] [address] [id number] [place] [address]- 7633 Sep, [facility] [place] [facility] [address] [id number] [place] [address]- 3235 Sep, [facility] [place] [facility] [address] [id number] [place] [address]- 4477 Sep, [facility] [place] [facility] [address] [id number] [place] [address]- 7378 Sep, [facility] [place] [facility] [address] [id number], [place] [address]- 1987 August, [facility] [place] [facility] [address] [id number] [place] [address]- 7623 August, [facility] [place] [facility] [address] [id number] [place] 6598 August, [facility] [place] [facility] [address] [id number] [place] [address]- 3966 August, [facility] [place] [facility] [address] [id number] [place] [address]- 4281 August, [facility] [place] [facility] [address] [id number] [place] [address]- 9523 August, [facility] [place] [facility] [address] [id number] [place] [address]- 5550 Jul, [facility] [place] [facility] [address] [facility] [id number] [place] [address]- 2941 Jul, [facility] [place] [facility] [address] [id number] [place] [address]- 0262 Jul, [facility] [place] [facility] [address] [id number] [place] [address]- 5833 Jul, [facility] [place] [facility] [address] [facility] [id number] [place] [address]- 6823 Jul, [facility] [place] [facility] [address] [id number], [place] [address]- 9477 Jul, [facility] [place] [facility] [address] [id number], [place] [address]- 6874 Jun, [facility] [place] [facility] [address] [id number] [place] [address]- 3237 Jun, [facility] [place] [facility] [address] [id number] [place] [address]- 8158 May, [facility] [place] [facility] [address] [id number] [place] [address]- 3681 May, [facility] [place] [facility] [address] [id number] [place] [address]- 5815 10 May, 2013 [facility] [place] [facility] [address] [id number] [place] [address]- 1385 May, [facility] [place] [facility] [address] [id number] [place] [address]- 4936 Apr, [facility] [place] [facility] [address] [id number] [place] [address]- 0860 Apr, [facility] [place] [facility] [address] [id number] [place] [address]- 6965 Mar, [facility] [place] [facility] [address] [id number] [place] [address]- 8812 Mar, [facility] [place] [facility] [address] [id number] [place] [address]- 9296 Mar, [facility] [place] [facility] [address] [id number] [place] [address]- 1213 Mar, [facility] [place] [facility] [address] [id number] [place] [address]- 8370 Mar, [facility] [place] [facility] [address] [id number] [place] [address]- 6238 Mar, [facility] [place] [facility] [address] [id number] [place] [address]- 7445 Feb, [facility] [place] [facility] [address] [id number] [place] [address]- 3976 Feb, [facility] [place] [facility] [address] [id number] [place] [address]- 6860 14 Feb, 2013 [facility] [place] [facility] [address] [id number] [place] [address]- 6948 Feb, [facility] [place] [facility] [address] [id number] [place] [address]- 1537 05 Feb, 2013 [facility] [place] [facility] [address] [id number] [place] [address]- 7957 Feb, [facility] [place] [facility] [address] [id number] [place] [address]- 3298 Jan, [facility] [place] [facility] [address] [id number] [place] [address]- 1202 Jan, [facility] [place] [facility] [address] [id number] [place] [address]- 4413 Jan, [facility] [place] [facility] [address] [id number] [place] [address]- 9418 Jan, [facility] [place] [facility] [address] [id number] [place] [address]- 0824 Jan, [facility] [place] [facility] [address] [id number] [place] [address]- 2607 Jan, [facility] [place] [facility] [address] [id number] [place] [address]- 7577 Dec, [facility] [place] [facility] [address] [id number] [place] [address]- 4384 Dec, [facility] [place] [facility] [address] [id number] [place] [address]- 3644 Nov, [facility] [place] [facility] [address] [id number] [place] 8205 Nov, [facility] [place] [facility] [address] [id number] [place] [address]- 9577 Oct, [facility] [place] [facility] [address] [id number], [place] [address]- 5281 Oct, [facility] [place] [facility] [address] [id number] [place] [address]- 4994 Oct, [facility] [place] [facility] [address] [id number] [place] [address]- 7208 Oct, [facility] [place] [facility] [address] [id number] [place] [address]- 2545 Oct, [facility] [place] [facility] [address] [id number] [place] [address]- 0237 Oct, [facility] [address] [id number] [place] [address]- 1793 Sep, [facility] [address] [id number] [place] [address]- 5527 Sep, [facility] [address] [id number] [place] [address]- 8187 Sep, [facility] [address] [id number] [place] [address]- 6949 Sep, [facility] [address] [id number] [place] [address]- 4601 August, [facility] [address] [id number] [place] [address]- 1471 August, [facility] [address] [id number] [place] [address]- 4021 August, [facility] [address] [id number] [place] [address]- 6041 August, [facility] [address] [id number] [place] [address]- 1989 August, [facility] [address] [id number] [place] [address]- 5515 Jul, [facility] [address] [id number] [place] [address]- 5850 Jul, [facility] [address] [id number] [place] [address]- 2977 15 Jul, 2012 [facility] [address] [id number] [place] [address]- 1271 Jul, [facility] [address] [id number] [place] [address]- 2298 Jul, [facility] [address] [id number] [place] [address]- 6544 Jul, [facility] [address] [id number] [place] [address]- 2201 Jul, [facility] [address] [id number] [place] [address]- 8776 Jul, [facility] [address] [id number] [place] [address]- 2976 Jul, [facility] [address] [id number] [place] [address]- 2546 Jul, [facility] [address] [id number] [place] [address] Jun, [facility] [address] [id number] [place] [address]- 6288 Jun, [facility] [address] [id number] [place] [address]- 7795 Jun, [facility] [address] [id number] [place] [address]- 8158 Jun, [facility] [address] [id number] [place] [address]- 7294 Jun, [facility] [address] [id number] [place] [address]- 8498 May, [facility] [address] [id number] [place] [address]- 2915 May, [facility] [address] [id number], [place] [address]- 6186 May, [facility] [address] [id number] [place] [address]- 7930 Apr, [facility] [address] [id number] [place] [address]- 8406 Apr, [facility] [address] [id number] [place] [address]- 4941 Apr, [facility] [address] [id number], [place] [address]- 2174 Apr, [facility] [place] [facility] [address] [id number] [place] [address]- 8024 Apr, [facility] [place] [facility] [address] [id number] [place] [address]- 9027 Apr, [facility] [place] [facility] [address] [id number] [place] [address]- 2745 Mar, [facility] [place] [facility] [address] [id number] [place] [address]- 2758 Mar, [facility] [place] [facility] [address] [id number] [place] [address]- 0959 Mar, [facility] [place] [facility] [address] [id number] [place] [address]- 2080 Mar, [facility] [place] [facility] [address] [id number] [place] [address]- 5450 Feb, [facility] [place] [facility] [address] [id number] [place] [address] Feb, [facility] [place] [facility] [address] [id number] [place] [address] Feb, [facility] [place] [facility] [address] [id number] [place] [address] Feb, [facility] [place] [facility] [address] [id number] [place] [address] Feb, [facility] [place] [facility] [address] [id number], [place] [address] Feb, [facility] [place] [facility] [address] [id number] [place] [address] Feb, [facility] [place] [facility] [address] [id number] [place] [address] Feb, [facility] [place] [facility] [address] [id number] [place] [address] Feb, [facility] [place] [facility] [address] [id number] [place] [address] Feb, [facility] [place] [facility] [address] [id number] [place] [address] Feb, [facility] [place] [facility] [address] [id number] [place] [address] Feb, [facility] [place] [facility] [address] [id number] [place] [address] Feb, [facility] [place] [facility] [address] [id number] [place] [address] Feb, [facility] [place] [facility] [address] [id number] [place] [address] Feb, [facility] [place] [facility] [address] [id number] [place] [address] Feb, [facility] [place] [facility] [address] [id number] [place] [address] 2020 Jan, [facility] [place] [facility] [address] [id number] [place] [address] Jan, [facility] [place] [facility] [address] [facility] [id number] [place] [address] Jan, [facility] [place] [facility] [address] [facility] [id number] [place] [address] Jan, [facility] [place] [facility] [address] [facility] [id number] [place] [address] 30 Jan, 2012 [facility] [place] [facility] [address] [id number] [place] [address] 39[address] Jan, [facility] [place] [facility] [address] [id number] [place] [address] Jan, [facility] [place] [facility] [address] [facility] [id number] [place] [address] Jan, [facility] [place] [facility] [address] [id number] [place] [address] Jan, [facility] [place] [facility] [address] [id number] [place] [address] 15 Jan, 2012 [facility] [place] [facility] [address] [id number] [place] [address] 15 Jan, 2012 [facility] [place] [facility] [address] [id number] [place] [address] Jan, [facility] [place] [facility] [address] [id number] [place] [address] 26 Sep, 2011 [facility] [place] [facility] [address] [id number] [place] [address] 26 Sep, 2011 [facility] [place] [facility] [address] [id number] [place] [address] 24 Sep, 2011 [facility] [place] [facility] [address] [id number] [place] [address] 23 Sep, 2011 [facility] [place] [facility] [address] [id number], [place] [address] 22 Sep, 2011 [facility] [place] [facility] [address] [id number] [place] [address] 79[address] 21 Sep, 2011 [facility] [place] [facility] [address] [id number], [place] [address] 20 Dec, 2011 [facility] [place] [facility] [address] [id number], [place] [address] 20 Sep, 2011 [facility] [place] [facility] [address] [id number], [place] [address] 07 Sep, 2011 [facility] [place] [facility] [address] [id number], [place] [address] 06 Sep, 2011 [facility] [place] [facility] [address] [id number], [place] [address] 06 Sep, 2011 [facility] [place] [facility] [address] [id number], [place] [address] 05 Sep, 2011 [facility] [place] [facility] [address] [id number], [place] [address] Nov, [facility] [place] [facility] [address] [id number] [place] [address] Nov, [facility] [place] [facility] [address] [id number] [place] [address] Nov, [facility] [place] [facility] [address] [id number] [place] [address] Nov, [facility] [place] [facility] [address] [id number] [place] [address] Nov, [facility] [place] [facility] [address] [id number] [place] [address] Nov, [facility] [place] [facility] [address] [id number] [place] [address] Nov, [facility] [place] [facility] [address] [id number] [place] [address] Nov, [facility] [place] [facility] [address] [id number] [place] [address] Oct, [facility] [place] [facility] [address] [id number] [place] [address] Oct, [facility] [place] [facility] [address] [id number] [place] [address] Oct, [facility] [place] [facility] [address] [id number] [place] [address] Oct, [facility] [place] [facility] [address] [id number] [place] [address] Oct, [facility] [place] [facility] [address] [id number] [place] [address] 16 Oct, 2011 [facility] [place] [facility] [address] [address] [id number] [place] [address] Oct, [facility] [place] [facility] [address] [id number] [place] [address] Sep, [facility] [place] [facility] [address] [id number] [place] [address] Sep, [facility] [place] [facility] [address] [id number] [place] [address] August, [facility] [place] [facility] [address] [id number] [place] [address] August, [facility] [place] [facility] [address] [id number] [place] [address] August, [facility] [place] [facility] [address] [id number] [place] [address] August, [facility] [place] [facility] [address] [id number] [place] [address] Jul, [facility] [place] [facility] [address] [id number] [place] [address] Jul, [facility] [place] [facility] [address] [id number] [place] [address] Jul, [facility] [place] [facility] [address] [id number] [place] [address] Jul, [facility] [place] [facility] [address] [id number] [place] [address] Jul, [facility] [place] [facility] [address] [id number] [place] [address] Jul, [facility] [place] [facility] [address] [id number] [place] [address] Jul, [facility] [place] [facility] [address] [id number] [place] [address] Jul, [facility] [place] [facility] [address] [id number] [place] [address] Jul, [facility] [place] [facility] [address] [id number] [place] [address] Jun, [facility] [place] [facility] [address] [id number] [place] [address] 19 Jun, 2011 [facility] [place] [facility] [address] [id number] [place] [address] 15 Jun, 2011 [facility] [place] [facility] [address] [id number] [place] [address] 14 Jun, 2011 [facility] [place] [facility] [address] [id number] [place] [address] 12 Jun, 2011 [facility] [place] [facility] [address] [id number] [place] [address] Jun, [facility] [place] [facility] [address] [id number] [place] [address] Jun, [facility] [place] [facility] [address] [id number] [place] [address] 25 May, 2011 [facility] [place] [facility] [address] [id number] [place] [address] 24 May, 2011 [facility] [place] [facility] [address] [id number] [place] [address] 16 May, 2011 [facility] [place] [facility] [address] [id number] [place] [address] May, [facility] [place] [facility] [address] [id number] [place] [address] May, [facility] [place] [facility] [address] [id number] [place] [address] Apr, [facility] [place] [facility] [address] [id number] [place] [address] Apr, [facility] [place] [facility] [address] [id number] [place] [address] Apr, [facility] [place] [facility] [address] [id number] [place] [address] Apr, [facility] [place] [facility] [address] [id number] [place] [address] Apr, [facility] [place] [facility] [address] [id number] [place] [address] 30 Mar, 2011 [facility] [place] [facility] [address] [id number] [place] [address] Mar, [facility] [place] [facility] [address] [id number] [place] [address] Mar, [facility] [place] [facility] [address] [id number] [place] [address] Mar, [facility] [place] [facility] [address] [id number] [place] [address] Mar, [facility] [place] [facility] [address] [id number] [place] [address] Mar, [facility] [place] [facility] [address] [id number] [place] [address] Mar, [facility] [place] [facility] [address] [id number] [place] [address] Feb, [facility] [place] [facility] [address] [id number] [place] [address] Feb, [facility] [place] [facility] [address] [id number] [place] [address] Feb, [facility] [place] [facility] [address] [id number] [place] [address] Feb, [facility] [place] [facility] [address] [id number] [place] [address] Jan, [facility] [place] [facility] [address] [id number] [place] [address] Jan, [facility] [place] [facility] [address] [id number] [place] [address] Jan, [facility] [place] [facility] [address] [id number] [place] [address] Jan, [facility] [place] [facility] [address] [id number] [place] [address] Nov, [facility] [id number] [place] [address] Mar, [facility] [address] [facility] [id number], [place] [address] Mar, [facility] [id number], [place] [address] Mar, [facility] [address] [facility] [id number], [place] [address] Mar, [facility] [address] [facility] [id number], [place] [address] Mar, [facility] [id number], [place] [address] Mar, [facility] [id number], [place] [address] Feb, [facility] [id number], [place] [address] Feb, [facility] [id number], [place] [address] Jan, [facility] [id number], [place] [address] Jan, [facility] [id number], [place] [address] Jan, IMMUNIZATIONS No Known Immunizations SOCIAL HISTORY Never Assessed REASON FOR VISIT wilmar PLAN OF CARE Activity Details Follow Up prn Reason: VITAL SIGNS Height 63 in 2016-11-02 Blood pressure systolic 150 mmHg 2016-11-02 Blood pressure diastolic 78 mmHg 2016-11-02 MEDICATIONS Medication Instructions Dosage Frequency Start Date End Date Duration Status Fiber Complete - Active Losartan Potassium 100 mg Orally Once a day 1 tablet 24h 30 Active Vitamin D (Ergocalciferol) 74150 UNIT Orally twice weekly 1 capsule 8 weeks Active Ferrous Sulfate 325 (65 Fe) MG Orally Once a day 1 tablet 24h Active Nystatin 227102 UNIT/ML Mouth/Throat Four times a day 4 ml 6h Active VESIcare 10 MG Orally Once a day 1 tablet 24h Active Cetirizine HCl 10 mg Orally Once a day 1 tablet 24h 7 Nov, 2016 30 days Active Clonazepam 1 MG Orally Twice a day 1 tablet 12h Active Symbicort 80-4.5 MCG/ACT Inhalation Twice a day 2 puffs 12h Mar, Active Potassium Chloride ER 10 MEQ TAKE ONE CAPSULE BY MOUTH ONCE DAILY WITH FOOD 30 Active ProAir HFA 108 (90 Base) MCG/ACT Inhalation every 4 hrs 2 puffs as needed 4h Sep, Active Lyrica 150 MG Orally 3 times a day 1 capsule 8h Active Norvasc 10 Orally Once a day 1 tablet 24h Active Furosemide 40 mg Orally Once a day 1 tablet 24h 30 Active Vitamin C 1000 MG Orally Once a day 1 tablet 24h Active Fluticasone Propionate 50 MCG/ACT Nasally Once a day USE ONE SPRAY IN EACH NOSTRIL TWICE DAILY 24h Active Amitriptyline HCl 100 MG Orally Once a day 1 tablet 24h Oct, Active Requip 4 MG Orally do not fill in er Once a day 2 tablets 1 to 3 hours before bedtime 24h 30 days Active Toprol XL 50 mg Orally 3 times a day 1 tablet 8h Active Gemfibrozil 600 MG Orally 2 times a day 1 tablet 12h Active Voltaren 1 % Transdermal to knee BID. Max dose 4 grams 2 grams Jan, Active Trileptal 300 MG Orally Twice a day 1 tablet 12h Oct, Active Nystatin 950479 UNIT/GM Externally Twice a day 1 application to thighs as needed 12h Sep, Active Protonix 40 mg Orally Once a day 1 tablet 24h 30 Active Cymbalta 60 MG Orally Once a day 1 capsule 24h Active Synthroid 137 MCG Orally Once a day 1 tablet 24h Active Glendora 3 1200 MG Orally Once a day 1 capsule 24h Active RESULTS No Results PROCEDURES Procedure Date Ordered Result Body Site LTD ORAL EVALUATION - PROBLEM FOCUS November 02, 2016 INSTRUCTIONS MEDICATIONS ADMINISTERED No Known Medications MEDICAL [...] 2020 & 2007 Surgical History Bladder surgery [facility] 03/2016 Hospitalization History Surgeries Only Hospitalization History 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
[2018-05-29 08:26] LABS: ALBUMIN 4.5 GM/DL (3.2-4.5); BILIRUBIN,TOTAL 0.4 MG/DL (0.1-1.0); CALCIUM 9.9 MG/DL (8.5-10.1); CREATININE SERUM 1.13 MG/DL (0.60-1.30); POTASSIUM 3.9 MMOL/L (3.6-5.0); TOTAL PROTEIN 7.6 GM/DL (6.4-8.2)
--- OUTSIDE RECORDS SUMMARY | 2018-05-29 08:27 | XMS REPORT ---
Author Author ISABEL MAE [facility] Address [address] [place] [address] Care Team Providers Care Key Holder Name Role Phone ISABEL MAE Unavailable PROBLEMS Type Condition ICD9-CM Code [id number] Code Onset Dates Condition Status SNOMED Code Problem Long-term use of high-risk medication Z79.899 Active 943100510 Problem Abnormal chest CT R93.8 Active 683331136 Problem Low back pain M54.5 Active 652276084 Problem Generalized anxiety disorder F41.1 Active 36019159 Problem Dysthymic disorder F34.1 Active 65931143 Problem Coronary artery disease involving [place] coronary artery of [place] heart, angina presence unspecified I25.10 Active 4968405816975 Problem Depressed F32.9 Active 99636826 Problem Fibromyalgia M79.7 Active 901014942 Problem Hypothyroid E03.9 Active 84767341 Problem Essential (primary) hypertension I10 Active 51841313 Problem Insomnia G47.00 Active 756306254 Problem Vitamin D deficiency E55.9 Active 89891257 Problem Anemia in chronic kidney disease D63.1 Active 581506165861456 Problem Chronic kidney disease, unspecified N18.9 Active 935002326 Problem Body mass index (BMI) of 40.0-44.9 in adult Z68.41 Active 050286477 Problem Stage 3 chronic kidney disease N18.3 Active 040649161 Problem Restless leg G25.81 Active 64427948 Problem Palpitations R00.2 Active 96335963 Problem Asthma J45.909 Active 937590933 Problem Primary osteoarthritis of left knee M17.12 Active 346252539 Problem Bipolar disorder, current episode manic without psychotic features F31.10 Active 897819274 Problem Mood disorder F39 Active 41638847 Problem Degenerative tear of medial meniscus of left knee M23.204 Active 034094564 Problem History of colon polyps Z86.010 Active 506162404 Problem Asthma with acute exacerbation in adult J45.901 Active 036004801 Problem Chronic kidney disease, stage 4 (severe) N18.4 Active 482883534 Problem Functional diarrhea K59.1 Active 77618786 Problem Hypokalemia E87.6 Active 40611606 Problem Mixed stress and urge urinary incontinence N39.46 Active 376749859 Problem History of anemia Z86.2 Active 706082527 Problem Other seasonal allergic rhinitis J30.2 Active 828965044 ALLERGIES No Information ENCOUNTERS Encounter Location Date Diagnosis [place] [address] [address] Sep, [place] [address] 73388- 4662 August, [place] [address] 64346- 9384 August, Generalized anxiety disorder F41.1 and Major depressive disorder, recurrent episode with anxious distress F33.9 [place] [address] 38029- 8800 August, Abnormal chest CT R93.8 [place] [address] 84683- 5854 Jul, [place] [address] 41102- 6732 Jul, Chronic kidney disease, stage 4 (severe) N18.4 [place] [address] 84432- 1856 Jul, [place] [address] 50538- 3613 Jul, Restless leg G25.81 ; Mixed stress and urge urinary incontinence N39.46 and Fibromyalgia M79.7 [place] [address] [place] [id number] [place] [address] 96103- 8050 Jul, Chronic kidney disease, stage 4 (severe) N18.4 [place] [address] 18632- 4642 Jun, Orthostatic hypotension I95.1 ; Chronic kidney disease, stage 4 (severe) N18.4 ; Chest wall discomfort R07.89 and Body mass index (BMI) of 40.0-44.9 in adult Z68.41 [facility] [address] [place] [id number] [place] [address] 43552- 8652 Jun, [facility] [address] [place] [id number] [place] [address] 67383- 9994 Jun, Orthostatic hypotension I95.1 [facility] [address] [place] [id number] [place] [address] 10466- 4036 Jun, [facility] [address] [place] [id number] [place] [address] 71109 -1668 Jun, Orthostatic hypotension I95.1 ; Dysuria R30.0 and Acute cystitis without hematuria N30.00 [place] [address] [place] [id number] [place] [address] 65321- 8899 Jun, [facility] [address] [place] [id number] [place] [address] 77488- 7388 Jun, Chronic kidney disease, stage 4 (severe) N18.4 [place] [address] [place] [id number] [place] [address] 73647- 7734 Jun, Fibromyalgia M79.7 [place] [address] [place] [id number] [place] [address] 75441- 0468 Jun, [facility] [address] [place] [id number] [place] [address] 69378- 8463 Jun, [facility] [address] [place] [id number] [place] [address] 91064- [address] May, [address] R93.8 and Stage 3 chronic kidney disease N18.3 [facility] [address] [place] [id number] [place] [address] 11225- 5960 May, Chronic kidney disease, stage 4 (severe) N18.4 [facility] [address] [place] [address] [address] 5988 May, Chronic kidney disease, stage 4 (severe) N18.4 [facility] [address] [place] [id number] [place] [address] 35144- [address] May, [address] R93.8 [facility] [address] [place] [address] 72460- 3476 May, [facility] [address] [place] [id number] [place] [address] 23863- 1101 May, [facility] [address] [place] [address] 49745- 5635 May, Generalized anxiety disorder F41.1 and Major depressive disorder, recurrent episode with anxious distress F33.9 [place] [address] [place] [id number] [place] [address] 05988- 9667 May, Mood disorder F39 [place] [address] [place] [address] 98354- 1511 Apr, [facility] [address] [place] [address] 89126- 3981 Apr, Infected skin lesion L08.9 and Muscle strain of right shoulder region, initial encounter S46.911A [place] [address] [place] [address] 03544- 2973 Apr, Generalized anxiety disorder F41.1 and Major depressive disorder, recurrent episode with anxious distress F33.9 [facility] [address] [place] [address] 68030- 7485 Apr, [facility] [address] [place] [address] 49390- 7569 Apr, Recent urinary tract infection Z87.440 and Hypothyroid E03.9 [facility] [address] [place] [id number] [address] 2091 Apr, Generalized anxiety disorder F41.1 and Major depressive disorder, recurrent episode with anxious distress F33.9 [facility] [address] [address]- 1644 Apr, Recent urinary tract infection Z87.440 [facility] [address] [place] [address] 69861- 5372 28 Mar, 2017 [facility] [address] [place] [id number] [place] [address] 33675 -1449 Mar, Dysuria R30.0 ; Acute cystitis without hematuria N30.00 and BMI 40.0-44.9, adult Z68.41 [place] [address] [place] [address] 05068- 2422 14 Mar, 2017 [place] [address] [place] [id number] [place] [address] 15510- 7635 Mar, [place] [address] [place] [id number] [place] [address] 91866- 6272 Mar, Generalized anxiety disorder F41.1 and Major depressive disorder, recurrent episode with anxious distress F33.9 [place] [address] [place] [address] 32539- 2754 29 Feb, 2017 Conjunctivitis, bacterial H10.9 [place] [address] [place] [id number] [place] [address] 88699- 6835 27 Feb, 2017 [facility] [place] [address] [place] [address] 03360 -6058 15 Feb, 2017 Conjunctivitis, bacterial H10.9 [facility] [address] [place] [address] 45992- 7492 15 Feb, 2017 [facility] [address] [place] [address] 97056 -7573 10 Feb, 2017 Dysuria R30.0 ; Acute cystitis N30.00 and BMI 40.0-44.9, adult Z68.41 [place] [address] [place] [address] 24008- 0455 08 Feb, 2017 [place] [address] [place] [address] 19446- 3730 Feb, Generalized anxiety disorder F41.1 and Major depressive disorder, recurrent episode with anxious distress F33.9 [place] [address] [place] [id number] [place] [address] 87850- 7005 Feb, Mood disorder F39 and BMI 40.0-44.9, adult Z68.41 [place] [id number] [place] [address] 52927- 0582 Jan, [place] [address] [place] [id number] [place] [address] 08388- 8441 Jan, [place] [id number] [place] [address] 73848- 4168 Jan, Hypothyroid E03.9 [place] [id number] [place] [address] 06366- 5291 Jan, [place] [id number] [place] [address] 68876- 4571 Jan, Chronic kidney disease, unspecified N18.9 ; Hypokalemia E87.6 ; Essential (primary) hypertension I10 ; Fibromyalgia M79.7 ; Coronary artery disease involving [place] coronary artery of [place] heart, angina presence unspecified I25.10 ; Hypothyroid E03.9 and Encounter for immunization Z23 [place] [id number] [place] [address] 07144- 9131 Jan, Hypothyroid E03.9 [place] [address] [place] [id number] [place] [address] 43854- 8972 Jan, [place] [id number] [place] [address] 72339- 4440 Dec, Vitamin D deficiency E55.9 [place] [id number] [place] [address] 53487- 4381 Dec, Primary osteoarthritis of left knee M17.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 [id number] [address]- [address] 19 Dec, 2016 Fibromyalgia M79.7 [facility] [address] [place] [id number] [place] [address] 37193- 4008 18 Dec, 2016 Mood disorder F39 [facility] [address] [place] [address] 24558- 7035 13 Dec, 2016 [facility] [address] [place] [id number] [place] [address] 09620- 4352 13 Dec, 2016 Generalized anxiety disorder F41.1 and Major depressive disorder, recurrent episode with anxious distress F33.9 [facility] [address] [place] [id number] [place] [address] 44197- 4232 11 Dec, 2016 [facility] [address] [place] [address] 77794- 3135 08 Dec, 2016 Streptococcal meningitis G00.2 [facility] [address] [place] [address] 43751- 2042 07 Dec, 2016 Streptococcal meningitis G00.2 [facility] [address] [place] [address] 59945- 1188 07 Dec, 2016 [facility] [address] [place] [address] 18046- 0860 06 Dec, 2016 Streptococcal meningitis G00.2 [facility] [address] [place] [address] 40185- 5532 06 Dec, 2016 [facility] [address] [place] [address] 36836- 8240 06 Dec, 2016 Major depressive disorder, recurrent episode with anxious distress F33.9 [facility] [address] [place] [address] 23170- 3961 Nov, Fever, unspecified fever cause R50.9 [facility] [address] [place] [address] 20488- 8165 Nov, [facility] [address] [place] [address] 00394- 5257 Nov, Hypothyroid E03.9 [facility] [address] [place] [address] 11968- 7467 Nov, Generalized anxiety disorder F41.1 and Major depressive disorder, recurrent episode with anxious distress F33.9 [facility] [address] [address]- 0182 Nov, [facility] [address] [place] [address] [id number] Oct, Dental examination Z01.20 [facility] [address] [place] [id number] [place] [address] 08064- 9723 Oct, Generalized anxiety disorder F41.1 and Major depressive disorder, recurrent episode with anxious distress F33.9 [facility] [address] [place] [id number] [place] [address] 36003- 4190 Oct, Chronic kidney disease, stage 4 (severe) N18.4 [facility] [address] [place] [id number] [place] [address] 77680- 7614 Oct, [facility] [address] [place] [id number] [place] [address] 99645- 5263 Oct, Fibromyalgia M79.7 [facility] [address] [place] [id number] [place] [address] 53421- 0379 Oct, [facility] [address] [place] [id number] [place] [address] 72016- 9894 Oct, Generalized anxiety disorder F41.1 ; Major depressive disorder, recurrent episode with anxious distress F33.9 and Bipolar disorder, current episode manic without psychotic features F31.10 [facility] [address] [place] [id number] [place] [address] 81264- 7263 Sep, [facility] [id number] [place] [address] 43078- 3219 Sep, [facility] [address] [place] [id number] [place] [address] 59008- 8157 Sep, Vitamin D deficiency E55.9 [place] [address] [address]- 5518 14 Sep, 2016 Vitamin D deficiency E55.9 [place] [address] [place] [address] 17562- 2782 Sep, [place] [address] [place] [id number] [place] [address] 36482- 3694 Sep, Chronic kidney disease, stage 4 (severe) N18.4 ; Hypothyroid E03.9 ; Restless leg G25.81 ; Fibromyalgia M79.7 ; Essential ( primary) hypertension I10 ; Vitamin D deficiency E55.9 ; Dyspepsia R10.13 ; Anemia in chronic kidney disease D63.1 ; Chronic kidney disease, unspecified N18.9 ; Coronary artery disease involving [place] coronary artery of [place] heart , angina presence unspecified I25.10 ; Screening breast examination Z12.39 and Low back pain M54.5 [place] [address] [place] [id number] [place] [address] 75156- 9536 August, Generalized anxiety disorder F41.1 and Major depressive disorder, recurrent episode with anxious distress F33.9 [place] [address] [place] [id number] [place] [address] 34154- 8138 August, Generalized anxiety disorder F41.1 and Major depressive disorder, recurrent episode with anxious distress F33.9 [place] [address] [place] [address] 47789- 9586 August, Fibromyalgia M79.7 [place] [address] [place] [id number] [place] [address] 49131- 8693 Jul, Generalized anxiety disorder F41.1 and Major depressive disorder, recurrent episode with anxious distress F33.9 [place] [address] [place] [address] 33487- 4655 Jul, Fibromyalgia M79.7 [place] [address] [place] [address] 05316- 1578 Jul, Generalized anxiety disorder F41.1 [place] [address] [place] [id number] [place] [address] 58669- 5866 May, [place] [address] [place] [id number] [place] [address] 19497- 4056 May, Hypothyroid E03.9 [place] [address] [place] [id number] [place] [address] 76184- 4800 May, Chronic kidney disease, stage 4 (severe) N18.4 ; Hypothyroid E03.9 ; Restless leg G25.81 ; Fibromyalgia M79.7 ; Essential ( primary) hypertension I10 ; Vitamin D deficiency E55.9 ; Dyspepsia R10.13 ; Acute non-recurrent maxillary sinusitis J01.00 ; Anemia in chronic kidney disease D63.1 ; Chronic kidney disease, unspecified N18.9 and Coronary artery disease involving [place] coronary artery of [place] heart, angina presence unspecified I25.10 [place] [address] [place] [id number] [place] [address] 70195- 5659 May, Vitamin D deficiency, unspecified E55.9 [place] [address] [place] [id number] [place] [address] 97125- 7550 May, Generalized anxiety disorder F41.1 and Major depressive disorder, recurrent episode with anxious distress F33.9 [place] [address] [place] [id number] [place] [address] 41699- 7081 Apr, Pain in right knee M25.561 and Pain in left knee M25.562 [place] [address] [place] [id number] [place] [address] 50796- 9725 Apr, [place] [address] [place] [id number] [place] [address] 06350- 0983 Apr, [place] [address] [place] [id number] [place] [address] 80262- 6600 Apr, [place] [address] [place] [address] 20424- 9244 Mar, Generalized anxiety disorder F41.1 and Major depressive disorder, recurrent episode with anxious distress F33.9 [facility] [address] [place] [address] 90051- 0312 Mar, Generalized anxiety disorder F41.1 and Major depressive disorder, recurrent episode with anxious distress F33.9 [place] [address] [place] [id number] [place] [address] 32204- 6857 Mar, [facility] [address] [place] [id number] [place] [address] 54933- 1798 Mar, [place] [address] [place] [id number] [place] [address] 92594- 2919 Mar, [place] [address] [place] [id number] [place] [address] 75186- 8258 Mar, Asthma J45.909 and Fibromyalgia M79.7 [place] [address] [place] [id number] [place] [address] 81334- 4122 Mar, Chronic kidney disease, stage 4 (severe) N18.4 ; Vitamin D deficiency E55.9 and Essential (primary) hypertension I10 [place] [address] [place] [id number] [place] [address] 09605- 2144 Feb, [place] [address] [place] [id number] [place] [address] 65414- 2027 Feb, Dysuria R30.0 ; Mixed stress and urge urinary incontinence N39.46 ; Fibromyalgia M79.7 and Chronic kidney disease, stage IV (severe) N18.4 [place] [address] [place] [id number] [place] [address] 16255- 9576 Feb, Chronic kidney disease, stage 4 (severe) N18.4 [place] [address] [place] [id number] [place] [address] 30180- 8183 Feb, Chronic kidney disease, stage 4 (severe) N18.4 [place] [address] [place] [id number] [place] [address] 09780- 6084 Feb, [place] [address] [place] [id number] [place] [address] 63853- 7080 Feb, Vitamin D deficiency, unspecified E55.9 [place] [address] [place] [id number] [place] [address] 78572- 9708 Jan, [place] [address] [place] [id number] [place] [address] 55733- 5297 Jan, [place] [address] 38372- 9484 Dec, [place] [address] [place] [id number] [place] [address] 38585- 8718 Dec, Chronic kidney disease, stage 4 (severe) N18.4 [place] [address] [place] [id number] [place] [address] 71150- 9496 Dec, Dysthymic disorder F34.1 and Generalized anxiety disorder F41.1 [place] [address] [place] [id number] [place] [address] 22846- 4949 Dec, [place] [address] [place] [id number] [place] [address] 94737- 3509 Dec, [place] [address] [place] [id number] [place] [address] 86179- 4387 Dec, Dysthymic disorder F34.1 and Generalized anxiety disorder F41.1 [place] [address] [place] [id number] [place] [address] 57608- 6790 Dec, Dysuria R30.0 ; Chronic kidney disease, stage 4 (severe) N18.4 ; Hypertension I10 ; Dyspepsia R10.13 ; Yeast dermatitis B37.2 ; Palpitations R00.2 ; Hypothyroid E03.9 ; Functional diarrhea K59.1 and Other seasonal allergic rhinitis J30.2 [facility] [address] [place] [id number] [place] [address] 79311 -1547 Dec, [facility] [address] [place] [id number] [place] [address] 22571 -7328 Nov, Dysuria R30.0 and Stress incontinence N39.3 [place] [address] [place] [id number] [place] [address] 37031- 3363 Nov, [place] [address] [place] [id number] [place] [address] 61520- 3639 Nov, [place] [address] 81292- 6630 Nov, Osteoarthritis of knees, bilateral M17.0 [place] [address] 31225- 4283 Nov, Dysthymic disorder F34.1 and Generalized anxiety disorder F41.1 [place] [address] 50206- 4436 Nov, [place] [address] 21733- 4253 Nov, [place] [address] 71919- 8018 Nov, Urgency of urination R39.15 [place] [address] 67506- 9370 Nov, [place] [address] [place] [id number] [place] [address] 08290- 5815 Nov, Chronic kidney disease, stage 4 (severe) N18.4 [place] [address] [place] [id number] [place] [address] 84140- 7274 Oct, Hypertension I10 ; Coronary artery disease involving [place] coronary artery of [place] heart, angina presence unspecified I25.10 ; Palpitations R00.2 ; Hypothyroid E03.9 ; Right foot pain M79.671 ; Functional diarrhea K59.1 and Other seasonal allergic rhinitis J30.2 [place] [address] [place] [id number] [place] [address] 45576- 4422 Oct, Dysthymic disorder F34.1 and Generalized anxiety disorder F41.1 [place] [address] [address]- 1800 Sep, [facility] [address] [place] [id number] [place] [address] 44828- 2412 Sep, [facility] [address] [place] [id number] [place] [address] 24126- 0333 Sep, [place] [address] [place] [id number] [place] [address] 96559- 0371 Sep, [facility] [address] [place] [id number] [place] [address] 98944- 7778 Sep, [place] [address] [place] [id number] [place] [address] 93685- 9269 Sep, Dysthymic disorder F34.1 and Generalized anxiety disorder F41.1 [place] [address] [place] [id number] [place] [address] [id number]- [id number] 16 Sep, 2015 Asthma with acute exacerbation in adult J45.901 ; Dysuria R30.0 ; Chronic kidney disease, stage 4 (severe) N18.4 and History of anemia Z86.2 [place] [id number] [place] [address] [phone]- 3693 Sep, Generalized anxiety disorder F41.1 and Dysthymic disorder F34.1 [place] [id number] [place] [address] [phone]- 2413 August, Screening breast examination Z12.39 and Acute recurrent maxillary sinusitis J01.01 [place] [id number] [place] [address] 078[address]- 5896 August, Osteoarthritis of knees, bilateral M17.0 [place] [id number] [place] [address] [phone]- 1671 August, Chronic kidney disease, stage 4 (severe) N18.4 ; Acute non- recurrent maxillary sinusitis J01.00 ; Urinary problem R39.89 ; Bowel habit changes R19.4 ; Functional diarrhea K59.1 and History of colon polyps Z86.010 [place] [id number] [address] 29 Jul, 2015 Dysthymic disorder F34.1 and Generalized anxiety disorder F41.1 [facility] [id number] [place] [address] 89932- 0033 Jul, [facility] [id number] [place] [address] 08430- 1862 Jul, Dysthymic disorder F34.1 ; Generalized anxiety disorder F41.1 and long term use of drug Z79.899 [facility] [id number] [place] [address] 96090- 7713 Jul, [facility] [id number] [place] [address] 10882- 6636 Jun, [facility] [id number] [place] [address] 66721- 0277 Jun, [facility] [id number] [place] [address] 41972- 2023 May, [facility] [id number] [place] [address] 77529- 7891 May, Dysthymic disorder F34.1 and Generalized anxiety disorder F41.1 [facility] [address] [address] 2383 Apr, Kidney disease N28.9 [facility] [id number] [place] [address] 62301- 2783 Apr, Dysthymic disorder F34.1 and Generalized anxiety disorder F41.1 [facility] [id number] [place] [address] 75586- 7097 Apr, Chronic kidney disease, stage 4 (severe) N18.4 [facility] [id number] [place] [address] 21958- 7844 Apr, Generalized anxiety disorder F41.1 ; Major depression, recurrent F33.9 and Sleep disturbance G47.9 [facility] [address] 45411- 5274 Mar, Generalized anxiety disorder F41.1 and Dysthymic disorder F34.1 [facility] [address] 15068- 2016 Mar, Generalized anxiety disorder F41.1 ; Dysthymic disorder F34.1 and Insomnia G47.00 [facility] [address] 49958- 5169 Mar, [facility] [address] 04906- 3600 Mar, [facility] [address] 68540- 8026 Mar, Osteoarthritis of knees, bilateral M17.[address] 28234- 5210 Mar, Hypertension I10 ; Hypothyroid E03.9 ; Dysthymic disorder F34.1 ; Chronic kidney disease, stage 4 (severe) N18.4 and Nausea & vomiting R11.2 [place] [address] 25163- 9915 Mar, Generalized anxiety disorder F41.1 ; Dysthymic disorder F34.1 and Insomnia G47.00 [place] [address] 28381- 1484 Mar, Dehydration E86.0 ; Chronic kidney disease, stage 4 (severe ) N18.4 and Nausea & vomiting R11.2 [facility] [address] 31961 -3689 Mar, Gastroenteritis K52.9 [facility] [address] 04017- 4374 Mar, [facility] [address] 55973- 1183 Mar, [place] [id number] [place] [address] 67798- 8098 Feb, Dysthymic disorder F34.1 and Generalized anxiety disorder F41.1 [place] [id number] [place] [address] 59185- 9290 Jan, UTI (urinary tract infection) N39.0 ; Asthma J45.909 ; Coronary artery disease involving salamatof coronary artery of salamatof heart, angina presence unspecified I25.10 ; Hypertension I10 ; Hypothyroid E03.9 ; Vitamin D deficiency E55.9 ; Insomnia G47.00 ; Palpitations R00.2 ; Depressed F32.9 ; Restless leg G25.81 and Anxiety F41.[address] 29334- 1838 Jan, Dysthymic disorder F34.1 and Generalized anxiety disorder F41.[address] 16989- 3964 Jan, [address] 36917- 2290 30 Dec, [address] 48407- 3817 Dec, Alkalosis 276.3 ; Chronic kidney disease, 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.4 ; Hyperpotassemia 276.7 ; Secondary hyperparathyroidism, renal 588.81 ; Proteinuria 791.0 ; Unspecified vitamin D deficiency 268.9 ; Anemia in chronic kidney disease 285.21 ; Other and unspecified hyperlipidemia 272.4 ; Hypertension, essential, benign 401.1 and Chronic kidney disease (CKD), stage III (moderate) 585.[address] 97951- 6366 Dec, [address] 69365- 3846 Dec, Depressive disorder, not elsewhere classified 311 and Generalized anxiety disorder 300.[address] 79411- 0455 Dec, [facility] [id number] [place] [address] 54452- 3460 Dec, [facility] [id number] [place] [address] 87730- 4939 Nov, Depressive disorder, not elsewhere classified 311 and Generalized anxiety disorder 300.02 [facility] [id number] [place] [address] 57785- 4804 Nov, Arthritis of both knees 716.96 [place] [id number] [place] [address] 11644- 0144 Nov, PAF (paroxysmal atrial fibrillation) 427.31 ; CAD (coronary artery disease) 414.00 ; Chest pain 786.50 and Chronic kidney disease (CKD) stage G4/A1, severely decreased glomerular filtration rate (GFR) between 15-29 mL/min/1.73 square meter and albuminuria creatinine ratio less than 30 mg/g 585.4 [place] [id number] [place] [address] 35250- 1333 Oct, Coronary atherosclerosis of unspecified type of vessel, salamatof or graft 414.00 ; Chronic kidney disease, 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.4 ; Hypertension 401.9 and Edema 782.3 [place] [id number] [place] [address] 89232- 0921 Oct, Depressive disorder, not elsewhere classified 311 and Generalized anxiety disorder 300.02 [place] [id number] [place] [address] 79078- 6654 Oct, Depressive disorder, not elsewhere classified 311 and Generalized anxiety disorder 300.02 [place] [id number] [place] [address] 06547- 4332 Oct, [facility] [id number] [place] [address] 68048- 2837 Oct, [facility] [id number] [place] [address] 15384- 4897 Sep, [place] [id number] [place] [address] 42816- 7966 Sep, Chronic kidney disease, 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.4 [facility] [id number] [place] [address] 54939- 2562 Sep, [facility] [id number] [place] [address] 05178- 1695 Sep, Coronary atherosclerosis of unspecified type of vessel, salamatof or graft 414.00 ; Hypertension 401.9 ; Edema 782.3 and Hypothyroidism 244.9 [facility] [id number] [place] [address] 87892- 7785 Sep, Coronary atherosclerosis of unspecified type of vessel, salamatof or graft 414.00 ; Hypertension 401.9 ; Fibromyalgia 729.1 ; Edema 782.3 ; Hypothyroidism 244.9 and Anemia 285.9 [place] [address] 05912- 2947 Sep, Anxiety disorder, unspecified 300.00 and Depressive disorder , not elsewhere classified 311 [facility] [id number] [place] [address] 38887- 1452 Sep, [facility] [id number] [place] [address] 97118- 1476 August, Generalized anxiety disorder 300.02 [facility] [id number] [place] [address] 66461- 6871 August, Closed fracture of lateral malleolus 824.2 [facility] [id number] [place] [address] 02569- 1467 Jul, [facility] [id number] [place] [address] 33265- 8303 Jul, [facility] [id number] [place] [address] 60236- 7075 Jun, [facility] [id number] [place] [address] 84268- 7832 Jun, [facility] [place] [facility] [address] [id number] [place] [address]- 7092 Jun, 2014 [facility] [place] [facility] [address] [id number] [place] [address]- 8539 Jun, 2014 [facility] [place] [facility] [address] [id number] [place] [address]- 8253 Jun, 2014 [facility] [place] [facility] [address] [id number] [place] [address]- 1907 Jun, 2014 [facility] [place] [facility] [address] [id number] [place] [address]- 8594 May, 2014 [facility] [place] [facility] [address] [id number] [place] [address]- 1829 May, 2014 [facility] [place] [facility] [address] [id number] [place] [address]- 9883 18 May, 2014 [facility] [place] [facility] [address] [id number] [place] [address]- 5342 18 May, 2014 [facility] [place] [facility] [address] [id number] [place] [address]- 2346 16 May, 2014 [facility] [place] [facility] [address] [id number] [place] [address]- 2188 16 May, 2014 [facility] [place] [facility] [address] [id number] [place] [address]- 5005 13 May, 2014 [facility] [place] [facility] [address] [id number] [place] [address]- 3024 13 May, 2014 [facility] [place] [facility] [address] [id number] [place] [address]- 5991 10 May, 2014 [facility] [place] [facility] [address] [id number] [place] [address]- 2448 10 May, 2014 [facility] [place] [facility] [address] [id number] [place] [address]- 7465 Apr, [facility] [place] [facility] [address] [id number] [place] [address]- 6357 Apr, [facility] [place] [facility] [address] [id number] [place] [address]- 3216 Mar, [facility] [place] [facility] [address] [id number] [place] [address]- 5057 Mar, [facility] [place] [facility] [address] [id number] [place] [address]- 1348 Mar, [facility] [place] [facility] [address] [id number] [place] [address]- 6766 Mar, [facility] [place] [facility] [address] [id number] [place] [address]- 0274 Mar, [facility] [place] [facility] [address] [id number] [place] [address]- 8767 Mar, [facility] [place] [facility] [address] [id number] [place] [address]- 4684 Mar, [facility] [place] [facility] [address] [id number] [place] [address]- 2422 Feb, [facility] [place] [facility] [address] [id number] [place] [address]- 2024 Feb, [facility] [place] [facility] [address] [id number] [place] [address]- 3003 Feb, [facility] [place] [facility] [address] [id number] [place] [address]- 1810 Jan, [facility] [place] [facility] [address] [id number] [place] [address]- 3873 Jan, [facility] [place] [facility] [address] [id number] [place] [address]- 9132 Jan, [facility] [place] [facility] [address] [id number] [place] [address]- 5857 Jan, [facility] [place] [facility] [address] [id number] [place] [address]- 7081 Jan, [facility] [place] [facility] [address] [id number] [place] [address]- 8531 Jan, [facility] [place] [facility] [address] [id number] [place] 9846 Jan, [facility] [place] [facility] [address] [id number] [place] [address]- 5518 Jan, [facility] [place] [facility] [address] [id number] [place] [address]- 0775 Jan, [facility] [place] [facility] [address] [id number] [place] [address]- 4159 Jan, [facility] [place] [facility] [address] [id number] [place] [address]- 1534 Nov, [facility] [place] [facility] [address] [id number] [place] [address]- 7185 Nov, [facility] [place] [facility] [address] [id number] [place] [address]- 9409 Nov, [facility] [place] [facility] [address] [id number] [place] [address]- 8328 Oct, [facility] [place] [facility] [address] [id number] [place] [address]- 7136 Oct, [facility] [place] [facility] [address] [id number] [place] [address]- 2099 Oct, [facility] [place] [facility] [address] [id number] [place] [address]- 4473 Oct, [facility] [place] [facility] [address] [id number] [place] [address]- 6438 Oct, [facility] [place] [facility] [address] [id number] [place] [address]- 2804 Oct, [facility] [place] [facility] [address] [id number] [place] [address]- 0934 Oct, [facility] [place] [facility] [address] [id number] [place] [address]- 5319 Oct, [facility] [place] [facility] [address] [id number] [place] [address]- 5837 Oct, [facility] [place] [facility] [address] [id number] [place] [address]- 9771 Sep, [facility] [place] [facility] [address] [id number] [place] [address]- 4663 Sep, [facility] [place] [facility] [address] [id number] [place] [address]- 5830 Sep, [facility] [place] [facility] [address] [id number] [place] [address]- 1704 Sep, [facility] [place] [facility] [address] [id number] [place] [address]- 4592 Sep, [facility] [place] [facility] [address] [id number] [place] [address]- 7934 Sep, [facility] [place] [facility] [address] [id number] [place] [address]- 1400 Sep, [facility] [place] [facility] [address] [id number] [place] [address]- 2952 Sep, [facility] [place] [facility] [address] [id number] [place] [address]- 6814 Sep, [facility] [place] [facility] [address] [id number] [place] [address]- 5021 August, [facility] [place] [facility] [address] [id number] [place] [address]- 8871 August, [facility] [place] [facility] [address] [id number] [place] [address]- 4156 August, [facility] [place] [facility] [address] [id number] [place] [address]- 3873 August, [facility] [place] [facility] [address] [id number] [place] [address]- 4898 August, [facility] [place] [facility] [address] [id number] [place] [address]- 4440 August, [facility] [place] [facility] [address] [id number] [place] [address]- 9941 Jul, [facility] [place] [facility] [address] [id number] [place] [address]- 5411 Jul, [facility] [place] [facility] [address] [id number] [place] [address]- 3043 Jul, [facility] [place] [facility] [address] [id number] [place] [address]- 7071 Jul, [facility] [place] [facility] [address] [id number] [place] [address]- 3192 Jul, [facility] [place] [facility] [address] [id number] [place] [address]- 5798 Jul, [facility] [place] [facility] [address] [id number] [place] [address]- 9279 Jun, [facility] [place] [facility] [address] [id number] [place] [address]- 0189 Jun, [facility] [place] [facility] [address] [id number] [place] [address]- 9711 May, [facility] [place] [facility] [address] [id number] [place] [address]- 8825 May, [facility] [place] [facility] [address] [id number] [place] [address]- 8943 May, [facility] [place] [facility] [address] [id number] [place] [address]- 3609 May, [facility] [place] [facility] [address] [id number] [place] [address]- 6844 Apr, [facility] [place] [facility] [address] [id number] [place] 7661 Apr, [facility] [place] [facility] [address] [id number] [place] [address]- 7020 18 Mar, 2013 [facility] [place] [facility] [address] [id number] [place] [address]- 6429 18 Mar, 2013 [facility] [place] [facility] [address] [id number] [place] [address]- 0631 17 Mar, 2013 [facility] [place] [facility] [address] [facility] [id number] [place] [address]- 1958 17 Mar, 2013 [facility] [place] [facility] [address] [id number] [place] [address]- 2489 05 Mar, 2013 [facility] [place] [facility] [address] [id number] [place] [address]- 2848 05 Mar, 2013 [facility] [place] [facility] [address] [id number], [place] [address]- 0132 Feb, [facility] [place] [facility] [address] [id number] [place] [address]- 3251 Feb, [facility] [place] [facility] [address] [id number], [place] [address]- 3922 14 Feb, 2013 [facility] [place] [facility] [address] [id number], [place] [address]- 6135 14 Feb, 2013 [facility] [place] [facility] [address] [facility] [id number], [place] [address]- 2056 Feb, [facility] [place] [facility] [address] [id number], [place] [address]- 2373 Feb, [facility] [place] [facility] [address] [id number], [place] [address]- 4152 24 Jan, 2013 [facility] [place] [facility] [address] [id number], [place] [address]- 3084 24 Jan, 2013 [facility] [place] [facility] [address] [facility] [id number], [place] [address]- 4617 10 Jan, 2013 [facility] [place] [facility] [address] [facility] [id number], [place] [address]- 2660 10 Jan, 2013 [facility] [place] [facility] [address] [id number] [place] [address]- 9659 Jan, [facility] [place] [facility] [address] [id number] [place] [address]- 1645 Jan, [facility] [place] [facility] [address] [id number] [place] [address]- 0139 Dec, [facility] [place] [facility] [address] [id number] [place] [address]- 6918 Dec, [facility] [place] [facility] [address] [id number] [place] [address]- 9781 Nov, [facility] [place] [facility] [address] [id number] [place] [address]- 8123 Nov, [facility] [place] [facility] [address] [id number] [place] [address]- 4797 Oct, [facility] [place] [facility] [address] [id number] [place] [address]- 1541 Oct, [facility] [place] [facility] [address] [id number] [place] [address]- 3503 Oct, [facility] [place] [facility] [address] [id number] [place] [address]- 9423 Oct, [facility] [place] [facility] [address] [id number] [place] [address]- 8948 Oct, [facility] [place] [facility] [address] [id number] [place] [address]- 7673 Oct, [facility] [place] [facility] [address] [id number] [place] [address]- 2592 Sep, [facility] [place] [facility] [address] [id number] [place] [address]- 2269 Sep, [facility] [place] [facility] [address] [id number] [place] [address]- 6252 Sep, [facility] [place] [facility] [address] [id number] [place] [address]- 7822 Sep, [facility] [place] [facility] [address] [id number] [place] [address]- 5771 August, [facility] [address] [id number] [place] [address]- 7505 August, [facility] [address] [id number] [place] [address]- 3156 August, [facility] [address] [id number] [place] [address]- 1892 August, [facility] [address] [id number] [place] [address]- 2187 August, [facility] [address] [id number] [place] [address]- 3646 Jul, [facility] [address] [id number] [place] [address]- 8525 Jul, [facility] [address] [id number] [place] [address]- 0679 Jul, [facility] [address] [id number] [place] [address]- 9183 Jul, [facility] [address] [id number] [place] [address]- 2978 Jul, [facility] [address] [id number] [place] [address]- 1629 Jul, [facility] [address] [id number], [place] [address]- 5326 Jul, [facility] [address] [id number] [place] [address]- 7096 Jul, [facility] [address] [id number] [place] [address]- 0196 Jul, [facility] [address] [id number] [place] [address] Jul, [facility] [address] [address] [facility] [id number] [id number] Jun, [facility] [address] [id number] [place] [address] Jun, [facility] [address] [id number] [place] [address] Jun, [facility] [address] [id number] [place] [address] Jun, [facility] [place] [facility] [address] [id number] [place] [address] Jun, [facility] [address] [id number] [place] [address] May, [facility] [place] [facility] [address] [id number] [place] [address] May, [facility] [address] [id number] [place] [address] May, [facility] [place] [facility] [address] [id number] [place] [address] Apr, [facility] [address] [id number] [place] [address] Apr, [facility] [address] [id number] [place] [address] Apr, [facility] [address] [id number] [place] [address] Apr, [facility] [place] [facility] [address] [id number], [place] [address] Apr, [facility] [place] [facility] [address] [id number] [place] [address] Apr, [facility] [place] [facility] [address] [id number] [place] [address] Mar, [facility] [place] [facility] [address] [id number] [place] [address] Mar, [facility] [place] [facility] [address] [id number] [place] [address] Mar, [facility] [address] [id number] [place] [address] Mar, [facility] [place] [facility] [address] [id number] [place] [address] Feb, [facility] [address] [id number] [place] [address] Feb, [facility] [place] [facility] [address] [id number] [place] [address] Feb, [facility] [address] [id number] [place] [address] Feb, [facility] [place] [facility] [address] [facility] [id number] [place] [address] Feb, [facility] [place] [facility] [address] [facility] [id number] [place] [address] Feb, [facility] [address] [id number] [place] [address] Feb, [facility] [place] [facility] [address] [facility] [id number] [place] [address] Feb, [facility] [address] [facility] [id number] [place] [address] Feb, [facility] [place] [facility] [address] [facility] [id number] [place] [address] Feb, [facility] [place] [facility] [address] [id number] [place] [address]- [address] Feb, [facility] [place] [facility] [address] [id number] [place] [address] Feb, [facility] [place] [facility] [address] [facility] [id number] [place] [address]- [address] Feb, [facility] [place] [facility] [address] [facility] [id number] [place] [address] Feb, [facility] [place] [facility] [address] [id number] [place] [address]- [address] Feb, [facility] [place] [facility] [address] [id number] [place] [address] Feb, [facility] [place] [facility] [address] [id number] [place] [address] Jan, [facility] [place] [facility] [address] [id number] [place] [address]- [address] Jan, [facility] [place] [facility] [address] [id number] [place] [address]- [address] Jan, [facility] [place] [facility] [address] [id number] [place] [address]- [address] Jan, [facility] [place] [facility] [address] [facility] [id number] [place] [address]- [address] Jan, [facility] [place] [facility] [address] [id number], [place] [address] Jan, [facility] [place] [facility] [address] [facility] [id number], [place] [address] Jan, [facility] [place] [facility] [address] [facility] [id number], [place] [address]- [address] Jan, [facility] [place] [facility] [address] [facility] [id number], [place] [address]- [address] Jan, [facility] [place] [facility] [address] [id number], [place] [address] Jan, [facility] [place] [facility] [address] [id number], [place] [address]- [address] Jan, [facility] [place] [facility] [address] [facility] [id number], [place] [address]- [address] Jan, [facility] [place] [facility] [address] [facility] [id number], [place] [address] Dec, [facility] [place] [facility] [address] [id number], [place] [address] 26 Sep, 2011 [facility] [place] [facility] [address] [id number] [place] [address] 24 Sep, 2011 [facility] [place] [facility] [address] [id number] [place] [address] 23 Sep, 2011 [facility] [place] [facility] [address] [id number] [place] [address]46 22 Sep, 2011 [facility] [place] [facility] [address] [id number] [place] [address] 2546 21 Sep, 2011 [facility] [place] [facility] [address] [id number] [place] [address] 20 Sep, 2011 [facility] [place] [facility] [address] [id number] [place] [address] 20 Sep, 2011 [facility] [place] [facility] [address] [id number] [place] [address] 07 Sep, 2011 [facility] [place] [facility] [address] [id number] [place] [address] 06 Sep, 2011 [facility] [place] [facility] [address] [id number] [place] [address] 06 Sep, 2011 [facility] [place] [facility] [address] [id number] [place] [address] 05 Sep, 2011 [facility] [place] [facility] [address] [id number] [place] [address] 23 Nov, 2011 [facility] [place] [facility] [address] [id number] [place] [address]46 17 Nov, 2011 [facility] [place] [facility] [address] [id number] [place] [address] 13 Nov, 2011 [facility] [place] [facility] [address] [id number] [place] [address] 10 Nov, 2011 [facility] [place] [facility] [address] [id number] [place] [address] 08 Nov, 2011 [facility] [place] [facility] [address] [id number] [place] [address] Nov, [facility] [place] [facility] [address] [id number] [place] [address] 79[address] Nov, [facility] [place] [facility] [address] [id number] [place] [address] Nov, [facility] [place] [facility] [address] [id number] [place] [address] Oct, [facility] [place] [facility] [address] [id number] [place] [address] Oct, [facility] [place] [facility] [address] [id number] [place] [address] 47[address] Oct, [facility] [place] [facility] [address] [id number] [place] [address] 1688 Oct, [facility] [place] [facility] [address] [id number] [place] [address] Oct, [facility] [place] [facility] [address] [id number] [place] [address]97 Oct, [facility] [place] [facility] [address] [id number] [place] [address] Oct, [facility] [place] [facility] [address] [id number] [place] [address] Sep, [facility] [place] [facility] [address] [id number] [place] [address] Sep, [facility] [place] [facility] [address] [id number] [place] [address] August, [facility] [place] [facility] [address] [id number] [place] [address] 56[address] August, [facility] [place] [facility] [address] [id number] [place] [address] August, [facility] [place] [facility] [address] [id number] [place] [address] 74[address] August, [facility] [place] [facility] [address] [id number] [place] [address] Jul, [facility] [place] [facility] [address] [id number] [place] [address] 6[address] Jul, [facility] [place] [facility] [address] [id number] [place] [address]198 Jul, [facility] [place] [facility] [address] [id number] [place] [address] 9920 Jul, [facility] [place] [facility] [address] [id number] [place] [address] 2770 Jul, [facility] [place] [facility] [address] [id number] [place] [address] 5837 Jul, [facility] [place] [facility] [address] [id number] [place] [address] 8955 Jul, [facility] [place] [facility] [address] [id number] [place] [address] 4207 Jul, [facility] [place] [facility] [address] [id number] [place] [address] 7055 Jul, [facility] [place] [facility] [address] [id number] [place] [address] 9345 Jun, [facility] [place] [facility] [address] [id number] [place] [address] 7048 19 Jun, 2011 [facility] [place] [facility] [address] [id number], [place] [address] 15 Jun, 2011 [facility] [place] [facility] [address] [id number] [place] [address]- 7432 14 Jun, 2011 [facility] [place] [facility] [address] [id number] [place] [address]- 7611 12 Jun, 2011 [facility] [place] [facility] [address] [id number] [place] [address] 6920 09 Jun, 2011 [facility] [place] [facility] [address] [id number] [place] [address]23 Jun, [facility] [address] [id number] [place] May, [facility] [address] [id number] [place] [address]- [address]46 24 May, 2011 [facility] [address] [id number] [place] [address] 2546 May, [facility] [address] [id number] [place] [address]- 2546 May, [facility] [address] [id number] [place] [address]276 May, [facility] [address] [id number] [place] [address]- 4006 Apr, [facility] [address] [id number] [place] [address] 7224 Apr, [facility] [address] [id number] [place] [address] 6077 Apr, [facility] [address] [id number] [place] [address]141 Apr, [facility] [address] [id number] [place] [address] 1406 Apr, [facility] [address] [id number] [place] [address] 2542 Mar, [facility] [address] [id number] [place] [address] 2546 Mar, [facility] [place] [facility] [address] [id number] [place] [address]- 4416 Mar, [facility] [address] [id number] [place] [address] 2546 Mar, [facility] [address] [id number] [place] [address]- 9839 Mar, [facility] [place] [facility] [address] [id number] [place] [address]- 0651 Mar, [facility] [place] [facility] [address] [id number] [place] [address]- 3876 Mar, [facility] [place] [facility] [address] [id number] [place] [address] Feb, [facility] [place] [facility] [address] [id number] [place] [address]- 3497 Feb, [facility] [place] [facility] [address] [id number] [place] [address] Feb, [facility] [place] [facility] [address] [id number] [place] [address]- 9877 Feb, [facility] [place] [facility] [address] [id number] [place] [address]- 8412 Jan, [facility] [place] [facility] [address] [id number] [place] [address]- 8320 Jan, [facility] [place] [facility] [address] [id number] [place] [address]- 0878 Jan, [facility] [place] [facility] [address] [id number] [place] [address]- 8689 Jan, [facility] [place] [facility] [address] [id number] [place] [address]- 9548 Nov, [facility] [place] [facility] [address] [id number], [place] [address]- 45[address] Mar, [facility] [place] [facility] [address] [id number] [place] [address]- 3852 Mar, [facility] [place] [facility] [address] [id number] [place] [address]- 5406 Mar, [facility] [place] [facility] [address] [id number] [place] [address]- 4231 Mar, [facility] [place] [facility] [address] [id number], [place] [address]- [address] Mar, [facility] [address] [facility] [id number], [place] [address]- [address] Mar, [facility] [address] [facility] [id number], [place] [address]- [address] Feb, [facility] [address] [facility] [id number], [place] [address]- [address] Feb, [facility] [address] [facility] [id number] Jan, [facility] [address] [facility] [id number], [place] [address]- 1452 Jan, [facility] [address] [facility] [id number], [place] [address]- [address]25 Jan, IMMUNIZATIONS No Known Immunizations SOCIAL HISTORY Never Assessed REASON FOR VISIT Med Refill per lab--ADaviedRN PLAN OF CARE VITAL SIGNS MEDICATIONS Medication Instructions Dosage Frequency Start Date End Date Duration Status Vitamin D (Ergocalciferol) 28525 UNIT Orally once weekly 1 capsule 8 weeks Active RESULTS No Results PROCEDURES [...] 2020 & 2007 Surgical History Bladder surgery [facility] 03/2016 Hospitalization History Surgeries Only Hospitalization History 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
--- OUTSIDE RECORDS SUMMARY | 2018-05-29 08:28 | XMS REPORT ---
Author Author ISABEL MAE [facility] Address [address] [place] [address] Care Team Providers Care Qa Tech Name Role Phone ISABEL MAE Unavailable PROBLEMS Type Condition ICD9-CM Code OFP31-AY Code Onset Dates Condition Status SNOMED Code Problem Long-term use of high-risk medication Z79.899 Active 984866271 Problem Abnormal chest CT R93.8 Active 871691547 Problem Low back pain M54.5 Active 216136738 Problem Generalized anxiety disorder F41.1 Active 19218759 Problem Dysthymic disorder F34.1 Active 37236815 Problem Coronary artery disease involving [place] coronary artery of [place] heart, angina presence unspecified I25.10 Active 7555543254251 Problem Depressed F32.9 Active 75906854 Problem Fibromyalgia M79.7 Active 722416590 Problem Hypothyroid E03.9 Active 99862201 Problem Essential (primary) hypertension I10 Active 20290827 Problem Insomnia G47.00 Active 943961432 Problem Vitamin D deficiency E55.9 Active 78327087 Problem Anemia in chronic kidney disease D63.1 Active 123829338221615 Problem Chronic kidney disease, unspecified N18.9 Active 987476498 Problem Body mass index (BMI) of 40.0-44.9 in adult Z68.41 Active 137280224 Problem Stage 3 chronic kidney disease N18.3 Active 092737351 Problem Restless leg G25.81 Active 62422691 Problem Palpitations R00.2 Active 32170707 Problem Asthma J45.909 Active 990691281 Problem Primary osteoarthritis of left knee M17.12 Active 839742748 Problem Bipolar disorder, current episode manic without psychotic features F31.10 Active 434937078 Problem Mood disorder F39 Active 13650041 Problem Degenerative tear of medial meniscus of left knee M23.204 Active 160970253 Problem History of colon polyps Z86.010 Active 252381466 Problem Asthma with acute exacerbation in adult J45.901 Active 630003662 Problem Chronic kidney disease, stage 4 (severe) N18.4 Active 424408862 Problem Functional diarrhea K59.1 Active 74178830 Problem Hypokalemia E87.6 Active 54782686 Problem Mixed stress and urge urinary incontinence N39.46 Active 585404025 Problem History of anemia Z86.2 Active 405222066 Problem Other seasonal allergic rhinitis J30.2 Active 239152442 ALLERGIES No Known Allergies ENCOUNTERS Encounter Location Date Diagnosis [facility] [id number] [place] [address] 41616- 8161 August, [facility] [id number] [place] [address] 07289- 2803 Jul, [facility] [id number] [place] [address] 25409- 9093 Jul, Chronic kidney disease, stage 4 (severe) N18.4 [facility] [id number] [place] [address] 73845- 4451 Jun, Orthostatic hypotension I95.1 ; Chronic kidney disease, stage 4 (severe) N18.4 ; Chest wall discomfort R07.89 and Body mass index (BMI) of 40.0-44.9 in adult Z68.41 [facility] [id number] [place] [address] 55903- 0822 Jun, [facility] [id number] [place] [address] 88706- 3878 Jun, Orthostatic hypotension I95.1 [facility] [id number] [place] [address] 10249- 4701 Jun, [facility] [id number] [place] [address] 76546 -0428 Jun, Orthostatic hypotension I95.1 ; Dysuria R30.0 and Acute cystitis without hematuria N30.00 [facility] [id number] [place] [address] 68645- 4553 Jun, [facility] [id number] [address] 6341 Jun, Chronic kidney disease, stage 4 (severe) N18.4 [facility] [id number] [place] [address] 43217- 8636 Jun, Fibromyalgia M79.7 [facility] [id number] [place] [address] 84147- 2736 Jun, [facility] [id number] [place] [address] 16043- 0761 Jun, [facility] [id number] [place] [address] 75430- [address] May, [address] R93.8 and Stage 3 chronic kidney disease N18.3 [facility] [id number] [place] [address] 95753- 4579 May, Chronic kidney disease, stage 4 (severe) N18.4 [facility] [id number] [place] [address] 85521- 9600 May, Chronic kidney disease, stage 4 (severe) N18.4 [facility] [id number] [place] [address] 86203- [address] May, Ab[address] R93.8 [facility] [id number] [place] [address] 33225- 2693 May, [facility] [id number] [place] [address] 13810- 5998 May, [facility] [id number] [place] [address] 00545- 4435 May, Generalized anxiety disorder F41.1 and Major depressive disorder, recurrent episode with anxious distress F33.9 [facility] [address] [address]- 2086 May, Mood disorder F39 [facility] [id number] [place] [address] 96248- 1090 Apr, [facility] [id number] [address]- 0674 Apr, Infected skin lesion L08.9 and Muscle strain of right shoulder region, initial encounter S46.911A [facility] [address] [place] [address]- 8450 Apr, Generalized anxiety disorder F41.1 and Major depressive disorder, recurrent episode with anxious distress F33.9 [facility] [address] [address]- 2820 Apr, [facility] [id number] [place] [address] 92596- 3154 Apr, Recent urinary tract infection Z87.440 and Hypothyroid E03.9 [facility] [address] [address]- 0020 Apr, Generalized anxiety disorder F41.1 and Major depressive disorder, recurrent episode with anxious distress F33.9 [facility] [address] [place] [address]- 7860 Apr, Recent urinary tract infection Z87.440 [facility] [address] [address]- 9805 Mar, [facility] [id number] [address] Mar, Dysuria R30.0 ; Acute cystitis without hematuria N30.00 and BMI 40.0-44.9, adult Z68.41 [facility] [id number] [address]- 1415 Mar, [facility] [id number] [place] [address] 84192- 1654 Mar, [facility] [id number] [address]- 7670 Mar, Generalized anxiety disorder F41.1 and Major depressive disorder, recurrent episode with anxious distress F33.9 [facility] [id number] [place] [address] 06545- 5601 Feb, Conjunctivitis, bacterial H10.9 [facility] [id number] [place] [address] 76995- 8790 Feb, [facility] [id number] [place] [address] 46754 -6812 Feb, Conjunctivitis, bacterial H10.9 [facility] [id number] [place] [address] 08515- 1992 Feb, [facility] [address] 04682 -0276 Feb, Dysuria R30.0 ; Acute cystitis N30.00 and BMI 40.0-44.9, adult Z68.41 [facility] [address] 34559- 7125 Feb, [facility] [id number] [place] [address] 60559- 8717 Feb, Generalized anxiety disorder F41.1 and Major depressive disorder, recurrent episode with anxious distress F33.9 [facility] [id number] [place] [address] 77419- 5260 Feb, Mood disorder F39 and BMI 40.0-44.9, adult Z68.41 [facility] [id number] [place] [address] 74053- 1792 Jan, [facility] [id number] [place] [address] 77379- 2461 Jan, [facility] [address] 90976- 6954 Jan, Hypothyroid E03.9 [facility] [id number] [place] [address] 98187- 5364 Jan, [facility] [id number] [place] [address] 33402- 0763 Jan, Chronic kidney disease, unspecified N18.9 ; Hypokalemia E87.6 ; Essential (primary) hypertension I10 ; Fibromyalgia M79.7 ; Coronary artery disease involving [place] coronary artery of [place] heart, angina presence unspecified I25.10 ; Hypothyroid E03.9 and Encounter for immunization Z23 [facility] [id number] [place] [address] 85095- 1771 Jan, Hypothyroid E03.9 [facility] [address] 32527- 5942 Jan, [facility] [address] 24819- 7096 Dec, Vitamin D deficiency E55.9 [facility] [id number] [place] [address] 63587- 1606 28 Dec, 2016 Primary osteoarthritis of left knee M17.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 [facility] [address] 91595- 0140 19 Dec, 2016 Fibromyalgia M79.7 [facility] [address] 15597- 8460 18 Dec, 2016 Mood disorder F39 [facility] [id number] [place] [address] 44664- 8086 13 Dec, 2016 [facility] [id number] [place] [address] 71149- 8448 13 Dec, 2016 Generalized anxiety disorder F41.1 and Major depressive disorder, recurrent episode with anxious distress F33.9 [facility] [id number] [place] [address] 41156- 8954 11 Dec, 2016 [facility] [id number] [place] [address] 51538- 3171 08 Dec, 2016 Streptococcal meningitis G00.2 [facility] [id number] [place] [address] 42415- 6756 07 Dec, 2016 Streptococcal meningitis G00.2 [facility] [address] [address]- 6106 07 Dec, 2016 [facility] [id number] [place] [address] 43764- 8227 Dec, Streptococcal meningitis G00.2 [facility] [id number] [place] [address] 78102- 4083 Dec, [facility] [id number] [place] [address] 42114- 9466 Dec, Major depressive disorder, recurrent episode with anxious distress F33.9 [facility] [id number] [place] [address] 99210- 8415 Nov, Fever, unspecified fever cause R50.9 [facility] [id number] [place] [address] 66624- 9077 Nov, [facility] [id number] [place] [address] 37494- 6573 Nov, Hypothyroid E03.9 [facility] [id number] [place] [address] 83780- 1639 Nov, Generalized anxiety disorder F41.1 and Major depressive disorder, recurrent episode with anxious distress F33.9 [facility] [id number] [place] [address] 27929- 2477 Nov, [facility] [id number] [place] [address] [id number] Oct, Dental examination Z01.20 [facility] [id number] [place] [address] 58987- 2910 Oct, Generalized anxiety disorder F41.1 and Major depressive disorder, recurrent episode with anxious distress F33.9 [facility] [id number] [place] [address] 87543- 7410 Oct, Chronic kidney disease, stage 4 (severe) N18.4 [facility] [id number] [place] [address] 62779- 0732 Oct, [facility] [address] [address]- 5670 Oct, Fibromyalgia M79.7 [facility] [address], [place] [address]- 9460 Oct, [facility] [id number] [place] [address] 33182- 1713 Oct, Generalized anxiety disorder F41.1 ; Major depressive disorder, recurrent episode with anxious distress F33.9 and Bipolar disorder, current episode manic without psychotic features F31.10 [facility] [id number] [place] [address] 01072- 5785 Sep, [facility] [id number] [place] [address] 35634- 1448 Sep, [facility] [id number] [place] [address] 70160- 1592 Sep, Vitamin D deficiency E55.9 [facility] [address] [address]- 6508 Sep, Vitamin D deficiency E55.9 [facility] [id number] [place] [address] 40866- 0455 Sep, [facility] [address], [place] [address]- 2386 Sep, Chronic kidney disease, stage 4 (severe) N18.4 ; Hypothyroid E03.9 ; Restless leg G25.81 ; Fibromyalgia M79.7 ; Essential ( primary) hypertension I10 ; Vitamin D deficiency E55.9 ; Dyspepsia R10.13 ; Anemia in chronic kidney disease D63.1 ; Chronic kidney disease, unspecified N18.9 ; Coronary artery disease involving [place] coronary artery of [place] heart , angina presence unspecified I25.10 ; Screening breast examination Z12.39 and Low back pain M54.5 [facility] [address], [place] [address]- 4275 August, Generalized anxiety disorder F41.1 and Major depressive disorder, recurrent episode with anxious distress F33.9 [facility] [id number] [place] [address] 72935- 9834 August, Generalized anxiety disorder F41.1 and Major depressive disorder, recurrent episode with anxious distress F33.9 [facility] [id number] [place] [address] 69721- 7387 August, Fibromyalgia M79.7 [facility] [id number] [place] [address] 52277- 3043 Jul, Generalized anxiety disorder F41.1 and Major depressive disorder, recurrent episode with anxious distress F33.9 [facility] [id number] [place] [address] 46273- 5006 Jul, Fibromyalgia M79.7 [facility] [id number] [place] [address] 65202- 4795 Jul, Generalized anxiety disorder F41.1 [facility] [id number] [place] [address] 25712- 4627 May, [facility] [id number] [place] [address] 23930- 5072 May, Hypothyroid E03.9 [facility] [id number] [place] [address] 97104- 0462 May, Chronic kidney disease, stage 4 (severe) N18.4 ; Hypothyroid E03.9 ; Restless leg G25.81 ; Fibromyalgia M79.7 ; Essential ( primary) hypertension I10 ; Vitamin D deficiency E55.9 ; Dyspepsia R10.13 ; Acute non-recurrent maxillary sinusitis J01.00 ; Anemia in chronic kidney disease D63.1 ; Chronic kidney disease, unspecified N18.9 and Coronary artery disease involving [place] coronary artery of [place] heart, angina presence unspecified I25.10 [facility] [address] [address]- 7811 May, Vitamin D deficiency, unspecified E55.9 [facility] [address], [place] [address]- 5849 May, Generalized anxiety disorder F41.1 and Major depressive disorder, recurrent episode with anxious distress F33.9 [facility] [address], [place] [address] 2546 Apr, Pain in right knee M25.561 and Pain in left knee M25.562 [facility] [id number] [place] [address] 63098 2545 Apr, [facility] [id number] [place] [address] 47570- 4544 Apr, [facility] [id number] [place] [address] 17824- 5170 Apr, [facility] [id number] [place] [address] 70207- 2573 Mar, Generalized anxiety disorder F41.1 and Major depressive disorder, recurrent episode with anxious distress F33.9 [facility] [id number] [place] [address] 61125- 0007 Mar, Generalized anxiety disorder F41.1 and Major depressive disorder, recurrent episode with anxious distress F33.9 [facility] [id number] [place] [address] 52439 2546 Mar, [facility] [id number] [place] [address] 26280 2546 Mar, [facility] [id number] [place] [address] 60080 2546 Mar, [facility] [id number] [place] [address] 14523- 4206 Mar, Asthma J45.909 and Fibromyalgia M79.7 [facility] [address], [place] [address] 2541 Mar, Chronic kidney disease, stage 4 (severe) N18.4 ; Vitamin D deficiency E55.9 and Essential (primary) hypertension I10 [facility] [address] 35674- 1715 Feb, [facility] [address] 07239- 8806 Feb, Dysuria R30.0 ; Mixed stress and urge urinary incontinence N39.46 ; Fibromyalgia M79.7 and Chronic kidney disease, stage IV (severe) N18.4 [facility] [address] 40132- 5910 Feb, Chronic kidney disease, stage 4 (severe) N18.4 [facility] [address] 53479- 5578 Feb, Chronic kidney disease, stage 4 (severe) N18.4 [facility] [address] 77132- 8801 Feb, [facility] [address] 95750- 3986 Feb, Vitamin D deficiency, unspecified E55.9 [facility] [address] 40642- 9916 Jan, [facility] [id number] [place] [address] 36643- 4511 Jan, [facility] [id number] [place] [address] 65937- 7214 Dec, [facility] [id number] [place] [address] 50480- 1591 Dec, Chronic kidney disease, stage 4 (severe) N18.4 [facility] [id number] [place] [address] 49482- 5033 Dec, Dysthymic disorder F34.1 and Generalized anxiety disorder F41.1 [facility] [address] 85358- 2507 Dec, [facility] [id number] [place] [address] 15135- 4615 Dec, [facility] [address] 92998- 2759 Dec, Dysthymic disorder F34.1 and Generalized anxiety disorder F41.1 [facility] [address] 28722- 0664 Dec, Dysuria R30.0 ; Chronic kidney disease, stage 4 (severe) N18.4 ; Hypertension I10 ; Dyspepsia R10.13 ; Yeast dermatitis B37.2 ; Palpitations R00.2 ; Hypothyroid E03.9 ; Functional diarrhea K59.1 and Other seasonal allergic rhinitis J30.2 [facility] [address] 49188 -9693 Dec, [facility] [address] 90654 -1141 Nov, Dysuria R30.0 and Stress incontinence N39.3 [facility] [id number] [place] [address] 07640- 9913 Nov, [facility] [address] 01375- 0717 Nov, [facility] [address] 10882- 7177 Nov, Osteoarthritis of knees, bilateral M17.0 [facility] [id number] [place] [address] 70866- 7305 Nov, Dysthymic disorder F34.1 and Generalized anxiety disorder F41.1 [facility] [address] 52774- 0033 Nov, [facility] [id number] [place] [address] 35909- 1888 Nov, [facility] [address] 78426- 0343 Nov, Urgency of urination R39.15 [facility] [id number] [place] [address] 31887- 4528 Nov, [facility] [id number] [place] [address] 62575- 1692 Nov, Chronic kidney disease, stage 4 (severe) N18.4 [facility] [id number] [place] [address] 44803- 0691 Oct, Hypertension I10 ; Coronary artery disease involving [place] coronary artery of [place] heart, angina presence unspecified I25.10 ; Palpitations R00.2 ; Hypothyroid E03.9 ; Right foot pain M79.671 ; Functional diarrhea K59.1 and Other seasonal allergic rhinitis J30.2 [facility] [id number] [place] [address] 52839- 0205 Oct, Dysthymic disorder F34.1 and Generalized anxiety disorder F41.1 [facility] [id number] [place] [address] 83315- 9988 Sep, [facility] [id number] [place] [address] 28249- 2099 Sep, [facility] [id number] [place] [address] 95828- 6412 Sep, [facility] [id number] [place] [address] 63629- 4174 Sep, [facility] [id number] [place] [address] 98495- 2236 Sep, [facility] [id number] [place] [address] 19766- 1515 Sep, Dysthymic disorder F34.1 and Generalized anxiety disorder F41.1 [facility] [id number] [place] [address] 75229- 1582 Sep, Asthma with acute exacerbation in adult J45.901 ; Dysuria R30.0 ; Chronic kidney disease, stage 4 (severe) N18.4 and History of anemia Z86.2 [facility] [id number] [place] [address] 89772- 4402 Sep, Generalized anxiety disorder F41.1 and Dysthymic disorder F34.1 [facility] [id number] [place] [address] 90741- 7204 August, Screening breast examination Z12.39 and Acute recurrent maxillary sinusitis J01.01 [facility] [id number] [place] [address] 55083- 1617 August, Osteoarthritis of knees, bilateral M17.0 [facility] [address] 66487- 2263 August, Chronic kidney disease, stage 4 (severe) N18.4 ; Acute non- recurrent maxillary sinusitis J01.00 ; Urinary problem R39.89 ; Bowel habit changes R19.4 ; Functional diarrhea K59.1 and History of colon polyps Z86.010 [facility] [id number] [place] [address] 37182- 6681 Jul, Dysthymic disorder F34.1 and Generalized anxiety disorder F41.1 [facility] [id number] [place] [address] 63773- 1578 Jul, [facility] [id number] [place] [address] 50895- 7101 18 Jul, 2015 Dysthymic disorder F34.1 ; Generalized anxiety disorder F41.1 and long term care pharmacist use of drug Z79.899 [facility] [id number] [place] [address] 67763- 9974 13 Jul, 2015 [facility] [id number] [place] [address] 03929- 3017 16 Jun, 2015 [facility] [id number] [place] [address] [phone] 08 Jun, 2015 [place] [address] [id number] [place] [address] [phone] May, [place] [address] [address] [id number] [place] [address] [phone] 1376 May, Dysthymic disorder F34.1 and Generalized anxiety disorder F41.1 [place] [address] [id number] [place] [address] 16423- 7911 Apr, Kidney disease N28.9 [place] [address] 13712- 8618 Apr, Generalized anxiety disorder F41.1 and Dysthymic disorder F34.1 [place] [address] [id number] [place] [address] [phone]- [phone] Apr, Chronic kidney disease, stage 4 (severe) N18.4 [place] [address] [place] [id number] [place] [address] [phone]- [phone] Apr, Generalized anxiety disorder F41.1 ; Major depression, recurrent F33.9 and Sleep disturbance G47.9 [place] [address] [address] [id number] [place] [address] [phone]- [phone] Mar, Generalized anxiety disorder F41.1 and Dysthymic disorder F34.1 [place] [id number] [place] [address] 85181- 9932 Mar, Generalized anxiety disorder F41.1 ; Dysthymic disorder F34.1 and Insomnia G47.00 [place] [id number] [place] [address] 99777- 2414 Mar, [facility] [id number] [place] [address] 84451- 8417 Mar, [place] [address] 58012- 3095 Mar, Osteoarthritis of knees, bilateral M17.0 [place] [id number] [place] [address] 35025- 4445 Mar, Hypertension I10 ; Hypothyroid E03.9 ; Dysthymic disorder F34.1 ; Chronic kidney disease, stage 4 (severe) N18.4 and Nausea & vomiting R11.2 [place] [id number] [place] [address] 13836- 7627 Mar, Generalized anxiety disorder F41.1 ; Dysthymic disorder F34.1 and Insomnia G47.00 [place] [id number] [place] [address] 12445- 6428 Mar, Dehydration E86.0 ; Chronic kidney disease, stage 4 (severe ) N18.4 and Nausea & vomiting R11.2 [facility] [id number] [place] [address] 77370 -1273 Mar, Gastroenteritis K52.9 [place] [address] 97179- 0055 Mar, [address] 75102- 0982 Mar, [place] [address] 58788- 0119 Feb, Dysthymic disorder F34.1 and Generalized anxiety disorder F41.[address] 38584- 5452 Jan, UTI (urinary tract infection) N39.0 ; Asthma J45.909 ; Coronary artery disease involving [place] coronary artery of [place] heart, angina presence unspecified I25.10 ; Hypertension I10 ; Hypothyroid E03.9 ; Vitamin D deficiency E55.9 ; Insomnia G47.00 ; Palpitations R00.2 ; Depressed F32.9 ; Restless leg G25.81 and Anxiety F41.[address] 84037- 7079 Jan, Dysthymic disorder F34.1 and Generalized anxiety disorder F41.1 [place] [id number] [place] [address] 85998- 3456 Jan, [place] [address] [place] [address]- 1500 30 Dec, 2014 [place] [id number] [place] [address] 20085- 4140 28 Dec, 2014 Alkalosis 276.3 ; Chronic kidney disease, 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.4 ; Hyperpotassemia 276.7 ; Secondary hyperparathyroidism, renal 588.81 ; Proteinuria 791.0 ; Unspecified vitamin D deficiency 268.9 ; Anemia in chronic kidney disease 285.21 ; Other and unspecified hyperlipidemia 272.4 ; Hypertension, essential, benign 401.1 and Chronic kidney disease (CKD), stage III (moderate) 585.3 [place] [id number] [place] [address] 25274- 1889 Dec, [place] [address] 24432- 5821 Dec, Depressive disorder, not elsewhere classified 311 and Generalized anxiety disorder 300.02 [place] [id number] [place] [address] 94657- 0968 Dec, [place] [id number] [place] [address] 13903- 9981 Dec, [place] [id number] [place] [address] 08300- 4281 Nov, Depressive disorder, not elsewhere classified 311 and Generalized anxiety disorder 300.02 [place] [id number] [place] [address] 16248- 4890 Nov, Arthritis of both knees 716.96 [place] [id number] [place] [address] 87013- 7677 07 Nov, 2014 PAF (paroxysmal atrial fibrillation) 427.31 ; CAD (coronary artery disease) 414.00 ; Chest pain 786.50 and Chronic kidney disease (CKD) stage G4/A1, severely decreased glomerular filtration rate (GFR) between 15-29 mL/min/1.73 square meter and albuminuria creatinine ratio less than 30 mg/g 585.4 [place] [address] 91769- 2848 Oct, Coronary atherosclerosis of unspecified type of vessel, [place] or graft 414.00 ; Chronic kidney disease, 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.4 ; Hypertension 401.9 and Edema 782.3 [place] [id number] [place] [address] 58017- 4565 Oct, Depressive disorder, not elsewhere classified 311 and Generalized anxiety disorder 300.02 [place] [address] 38301- 3868 Oct, Depressive disorder, not elsewhere classified 311 and Generalized anxiety disorder 300.02 [place] [address] 63531- 6105 Oct, [place] [id number] [place] [address] 50448- 5721 Oct, [place] [id number] [place] [address] 56942- 1805 Sep, [facility] [id number] [place] [address] 85407- 5175 Sep, Chronic kidney disease, 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.4 [place] [id number] [place] [address] 41080- 1826 Sep, [place] [id number] [place] [address] 82887- 7494 Sep, Coronary atherosclerosis of unspecified type of vessel, [place] or graft 414.00 ; Hypertension 401.9 ; Edema 782.3 and Hypothyroidism 244.9 [place] [id number] [place] [address] 01234- 9586 Sep, Coronary atherosclerosis of unspecified type of vessel, [place] or graft 414.00 ; Hypertension 401.9 ; Fibromyalgia 729.1 ; Edema 782.3 ; Hypothyroidism 244.9 and Anemia 285.9 [place] [id number] [place] [address] 34134- 4197 Sep, Anxiety disorder, unspecified 300.00 and Depressive disorder , not elsewhere classified 311 [facility] [address] [facility] [id number] [address]- 4009 Sep, [facility] [address] [address]- 4593 August, Generalized anxiety disorder 300.02 [facility] [id number] [place] [address]- 6137 August, Closed fracture of lateral malleolus 824.2 [facility] [address] [facility] [id number], [place] [address]- 5717 Jul, [facility] [address] [id number] [address]- 6888 Jul, [facility] [address] [address]- 4670 Jun, [facility] [address] [address]- 7172 Jun, [facility] [address] [id number] [address]- 8074 Jun, [facility] [address] [id number] [place] [address]- 5660 Jun, [facility] [address], [place] [address]- 0269 Jun, [facility] [address] [id number] 1283 Jun, [facility] [address] [facility] [id number], [place] [address]- 1643 May, [facility] [address] [id number] 4551 May, [facility] [address] [facility] [id number], [place] [address]- 0982 May, [facility] [address] [id number] 3302 May, [facility] [place] [facility] [address] [id number] [place] [address]- 7065 16 May, 2014 [facility] [place] [facility] [address] [id number] [place] [address]- 1946 16 May, 2014 [facility] [place] [facility] [address] [id number] [place] [address]- 2206 13 May, 2014 [facility] [place] [facility] [address] [id number] [place] [address]- 5834 13 May, 2014 [facility] [place] [facility] [address] [id number] [place] [address]- 9465 10 May, 2014 [facility] [place] [facility] [address] [id number] [place] [address]- 1449 May, 2014 [facility] [place] [facility] [address] [id number] [place] [address]- 3995 Apr, [facility] [place] [facility] [address] [id number] [place] [address]- 8498 Apr, [facility] [place] [facility] [address] [id number] [place] [address]- 5507 Mar, [facility] [place] [facility] [address] [id number] [place] [address]- 5771 Mar, [facility] [place] [facility] [address] [id number] [place] [address]- 6304 Mar, [facility] [place] [facility] [address] [id number] [place] [address]- 2545 15 Mar, 2014 [facility] [place] [facility] [address] [id number] [place] [address]- 2540 15 Mar, 2014 [facility] [place] [facility] [address] [id number] [place] [address]- 2897 15 Mar, 2014 [facility] [place] [facility] [address] [id number] [place] [address]- 6846 15 Mar, 2014 [facility] [place] [facility] [address] [id number] [place] [address]- 7261 Feb, [facility] [place] [facility] [address] [id number] [place] [address]- 9597 Feb, [facility] [place] [facility] [address] [id number] [place] [address]- 2123 Feb, [facility] [place] [facility] [address] [id number] [place] [address]- 9385 Jan, [facility] [place] [facility] [address] [id number] [place] [address]- 5928 Jan, [facility] [place] [facility] [address] [id number] [place] [address]- 5320 Jan, [facility] [place] [facility] [address] [id number] [place] [address]- 6160 Jan, [facility] [place] [facility] [address] [id number] [place] [address]- 1928 Jan, [facility] [place] [facility] [address] [id number] [place] [address]- 5986 Jan, [facility] [place] [facility] [address] [id number] [place] [address]- 9148 Jan, [facility] [place] [facility] [address] [id number] [place] [address]- 5675 Jan, [facility] [place] [facility] [address] [id number] [place] [address]- 6738 Jan, [facility] [place] [facility] [address] [id number] [place] [address]- 2501 Jan, [facility] [place] [facility] [address] [id number] [place] [address]- 5969 Nov, [facility] [place] [facility] [address] [id number] [place] [address]- 2603 Nov, [facility] [place] [facility] [address] [id number] [place] [address]- 5559 Nov, [facility] [place] [facility] [address] [id number] [place] [address]- 8472 Oct, [facility] [place] [facility] [address] [id number] [place] [address]- 9268 Oct, [facility] [place] [facility] [address] [id number] [place] [address]- 3907 Oct, [facility] [place] [facility] [address] [id number] [place] [address]- 8682 Oct, [facility] [place] [facility] [address] [id number] [place] [address]- 9171 Oct, [facility] [place] [facility] [address] [id number] [place] [address]- 7366 Oct, [facility] [place] [facility] [address] [id number] [place] [address]- 8682 Oct, [facility] [place] [facility] [address] [id number] [place] [address]- 0240 Oct, [facility] [place] [facility] [address] [id number] [place] [address]- 1035 Oct, [facility] [place] [facility] [address] [id number] [place] [address]- 6189 Sep, [facility] [place] [facility] [address] [id number] [place] [address]- 2308 Sep, [facility] [place] [facility] [address] [id number] [place] [address]- 0355 Sep, [facility] [place] [facility] [address] [id number] [place] [address]- 4335 Sep, [facility] [place] [facility] [address] [id number] [place] [address]- 9674 Sep, [facility] [place] [facility] [address] [id number] [place] [address]- 7715 Sep, [facility] [place] [facility] [address] [id number] [place] [address]- 4045 Sep, [facility] [place] [facility] [address] [id number] [place] [address]- 8259 Sep, [facility] [place] [facility] [address] [id number] [place] [address]- 9303 Sep, [facility] [place] [facility] [address] [id number] [place] [address]- 5532 August, [facility] [place] [facility] [address] [id number] [place] [address]- 1884 August, [facility] [place] [facility] [address] [id number] [place] [address]- 1165 August, [facility] [place] [facility] [address] [id number] [place] [address]- 3078 August, [facility] [place] [facility] [address] [id number] [place] [address]- 1537 August, [facility] [place] [facility] [address] [id number] [place] [address]- 1305 August, [facility] [place] [facility] [address] [id number] [place] [address]- 0147 Jul, [facility] [place] [facility] [address] [id number] [place] [address]- 2515 Jul, [facility] [place] [facility] [address] [id number] [place] [address]- 9516 Jul, [facility] [place] [facility] [address] [id number] [place] [address]- 2741 Jul, [facility] [place] [facility] [address] [id number] [place] [address]- 8145 Jul, [facility] [place] [facility] [address] [id number] [place] [address]- 9745 Jul, [facility] [place] [facility] [address] [id number] [place] [address]- 3722 Jun, [facility] [place] [facility] [address] [id number] [place] [address]- 6347 Jun, [facility] [place] [facility] [address] [id number] [place] [address]- 9016 May, [facility] [place] [facility] [address] [id number] [place] [address]- 0806 May, [facility] [place] [facility] [address] [id number] [place] [address]- 7216 May, [facility] [place] [facility] [address] [id number] [place] [address]- 8416 May, [facility] [place] [facility] [address] [id number] [place] [address]- 1678 Apr, [facility] [place] [facility] [address] [id number] [place] [address]- 3901 Apr, [facility] [place] [facility] [address] [id number] [place] [address]- 7526 Mar, [facility] [place] [facility] [address] [id number] [place] [address]- 0191 18 Mar, 2013 [facility] [place] [facility] [address] [id number] [place] [address]- 7374 17 Mar, 2013 [facility] [place] [facility] [address] [facility] [id number] [place] 7095 17 Mar, 2013 [facility] [place] [facility] [address] [id number] [place] [address]- 9177 05 Mar, 2013 [facility] [place] [facility] [address] [id number] [place] [address]- 1934 05 Mar, 2013 [facility] [place] [facility] [address] [id number] [place] [address]- 5350 20 Feb, 2013 [facility] [place] [facility] [address] [id number] [place] [address]- 0996 20 Feb, 2013 [facility] [place] [facility] [address] [id number] [place] [address]- 4717 Feb, [facility] [place] [facility] [address] [id number] [place] [address]- 5004 14 Feb, 2013 [facility] [place] [facility] [address] [id number] [place] [address]- 9834 Feb, [facility] [place] [facility] [address] [id number] [place] [address]- 3358 Feb, [facility] [place] [facility] [address] [id number] [place] [address]- 9975 Jan, [facility] [place] [facility] [address] [id number] [place] [address]- 5717 Jan, [facility] [place] [facility] [address] [id number] [place] [address]- 0821 Jan, [facility] [place] [facility] [address] [id number] [place] [address]- 4346 Jan, [facility] [place] [facility] [address] [id number] [place] [address]- 3563 Jan, [facility] [place] [facility] [address] [id number] [place] [address]- 4032 Jan, [facility] [place] [facility] [address] [id number] [place] [address]- 5322 Dec, [facility] [place] [facility] [address] [id number], [place] [address]- 2542 Dec, [facility] [place] [facility] [address] [id number], [place] [address]- 0900 Nov, [facility] [place] [facility] [address] [id number] [place] [address]- 7497 Nov, [facility] [place] [facility] [address] [id number], [place] [address]- 2547 Oct, [facility] [place] [facility] [address] [id number] [place] [address]- 2544 Oct, [facility] [place] [facility] [address] [id number] [place] [address]- 7378 Oct, [facility] [address] [id number] [place] [address]- 2445 Oct, [facility] [address] [id number] [place] [address]- 4982 Oct, [facility] [address] [id number] [place] [address]- 4511 Oct, [facility] [place] [facility] [address] [id number] [place] [address]- 8146 Sep, [facility] [address] [id number] [place] [address]- 8821 Sep, [facility] [address] [id number] [place] [address]- 2494 Sep, [facility] [address] [id number] [place] [address]- 6286 Sep, [facility] [address] [id number] [place] [address]- 5827 August, [facility] [address] [id number] [place] [address]- 1961 August, [facility] [address] [id number] [place] [address]- 6096 August, [facility] [address] [id number] [place] [address]- 8617 August, [facility] [place] [facility] [address] [id number] [place] [address]- 8637 August, [facility] [place] [facility] [address] [id number] [place] [address]- 1425 Jul, [facility] [place] [facility] [address] [id number] [place] 0404 Jul, [facility] [address] [id number] [place] [address]- 9327 Jul, [facility] [place] [facility] [address] [id number] [place] [address]- 2546 Jul, [facility] [address] [id number] [place] [address]- 2546 Jul, [facility] [address] [id number] [place] [address]- 2546 Jul, [facility] [place] [facility] [address] [id number] [place] [address]- 2546 Jul, [facility] [address] [id number] [place] [address]- 8989 Jul, [facility] [address] [id number] [place] [address]- 2276 Jul, [facility] [address] [id number] [place] [address]- 5036 Jul, [facility] [place] [id number] [id number] Jun, [facility] [address] [id number] [place] [address]- 0710 Jun, [facility] [address] [id number] [place] [address]- 5106 Jun, [facility] [address] [id number] [place] [address]- 2546 Jun, [facility] [place] [facility] [address] [id number] [place] [address]- 2546 Jun, [facility] [address] [id number] [place] [address]- 2547 May, [facility] [place] [facility] [address] [id number] [place] [address]- 2546 May, [facility] [place] [facility] [address] [id number] [place] [address]- 2546 May, [facility] [place] [facility] [address] [id number] [place] [address]- 0701 Apr, [facility] [place] [facility] [address] [id number] [place] [address]- 5910 Apr, [facility] [place] [facility] [address] [id number] [place] [address]- 1910 Apr, [facility] [place] [facility] [address] [id number] [place] [address]- 0008 Apr, [facility] [place] [facility] [address] [id number] [place] [address]- 5313 Apr, [facility] [place] [facility] [address] [id number] [place] [address]- 0670 Apr, [facility] [place] [facility] [address] [id number] [place] [address]- 4674 Mar, [facility] [place] [facility] [address] [id number] [place] [address]- 8432 Mar, [facility] [place] [facility] [address] [id number] [place] [address]- 0778 Mar, [facility] [place] [facility] [address] [id number] [place] [address]- 2877 Mar, [facility] [place] [facility] [address] [id number] [place] [address]- 1594 Feb, [facility] [place] [facility] [address] [id number], [place] [address]- 2109 Feb, [facility] [place] [facility] [address] [id number], [place] [address]- 7406 Feb, [facility] [place] [facility] [address] [id number] [place] [address]- 5596 Feb, [facility] [place] [facility] [address] [id number], [place] [address] Feb, [facility] [place] [facility] [address] [id number] [place] [address] Feb, [facility] [place] [facility] [address] [id number] [place] [address] Feb, [facility] [place] [facility] [address] [id number] [place] [address] Feb, [facility] [place] [facility] [address] [id number] [place] [address] Feb, [facility] [place] [facility] [address] [id number] [place] [address] Feb, [facility] [place] [facility] [address] [id number] [place] [address] Feb, [facility] [place] [facility] [address] [id number] [place] [address] Feb, [facility] [place] [facility] [address] [id number] [place] [address] Feb, [facility] [place] [facility] [address] [facility] [id number] [place] [address] Feb, [facility] [place] [facility] [address] [id number] [place] [address] Feb, [facility] [place] [facility] [address] [facility] [id number] [place] [address] Feb, [facility] [place] [facility] [address] [facility] [id number] [place] [address] Jan, [facility] [place] [facility] [address] [id number] [place] [address] Jan, [facility] [place] [facility] [address] [facility] [id number] [place] [address]- 3523 Jan, [facility] [place] [facility] [address] [id number] [place] [address] 2579 Jan, [facility] [place] [facility] [address] [facility] [id number] [place] [address]- 2867 30 Jan, 2012 [facility] [place] [facility] [address] [facility] [id number] [place] [address]- 70[address] Jan, [facility] [place] [facility] [address] [id number] [place] [address]36 25 Jan, 2012 [facility] [place] [facility] [address] [id number] [place] [address]- [address] 16 Jan, 2012 [facility] [place] [facility] [address] [id number] [place] [address]- [address]17 16 Jan, 2012 [facility] [place] [facility] [address] [id number] [place] [address]- 1386 15 Jan, 2012 [facility] [place] [facility] [address] [id number] [place] [address]- [address]17 15 Jan, 2012 [facility] [place] [facility] [address] [id number] [place] [address]- [address] Jan, [facility] [place] [facility] [address] [id number] [place] [address]- 9747 26 Dec, 2011 [facility] [place] [facility] [address] [id number] [place] [address]- [address] 26 Sep, 2011 [facility] [place] [facility] [address] [id number] [place] [address]- 9318 24 Sep2011 [facility] [place] [facility] [address] [id number], [place] [address] 23 Sep, 2011 [facility] [place] [facility] [address] [id number], [place] [address] 22 Sep, 2011 [facility] [place] [facility] [address] [id number], [place] [address] 21 Sep, 2011 [facility] [place] [facility] [address] [id number], [place] [address]46 20 Sep, 2011 [facility] [place] [facility] [address] [id number], [place] [address]- [address] 20 Sep, 2011 [facility] [place] [facility] [address] [id number], [place] [address] 07 Sep, 2011 [facility] [place] [facility] [address] [id number], [place] [address] 06 Dec, 2011 [facility] [place] [facility] [address] [id number] [place] [address]- [address] 06 Dec, 2011 [facility] [place] [facility] [address] [id number] [place] [address]- [address] 05 Dec, 2011 [facility] [place] [facility] [address] [id number] [place] [address]- [address] Nov, [facility] [place] [facility] [address] [id number] [place] [address]- 18[address] Nov, [facility] [place] [facility] [address] [id number] [place] [address]- [address]365 Nov, [facility] [place] [facility] [address] [id number] [place] [address]- 9485 Nov, [facility] [place] [facility] [address] [id number] [place] [address] Nov, [facility] [place] [facility] [address] [id number] [place] [address]- [address] Nov, [facility] [place] [facility] [address] [id number] [place] [address]- 8824 Nov, [facility] [place] [facility] [address] [id number] [place] [address]- [address]14 Nov, [facility] [place] [facility] [address] [id number] [place] [address]- [address]85 Oct, [facility] [place] [facility] [address] [id number] [place] [address]- 1784 Oct, [facility] [place] [facility] [address] [id number] [place] [address]- [address] Oct, [facility] [place] [facility] [address] [id number] [place] [address] Oct, [facility] [place] [facility] [address] [id number] [place] [address]- [address]198 Oct, [facility] [place] [facility] [address] [id number] [place] [address]- [address]46 16 Oct, [address] [facility] [address] [id number] [place] [address] Oct, [facility] [place] [facility] [address] [id number] [place] [address] Sep, [facility] [address] [id number] [place] [address] Sep, [facility] [place] [facility] [address] [id number] [place] [address] August, [facility] [address] [id number] [place] [address] August, [facility] [address] [id number] [place] [address] August, [facility] [address] [id number] [place] [address] August, [facility] [address] [id number] [place] [address] Jul, [facility] [place] [facility] [address] [id number] [place] [address] Jul, [facility] [address] [id number] [place] [address] Jul, [facility] [place] [facility] [address] [id number] [place] [address] Jul, [facility] [place] [facility] [address] [id number] [place] [address] Jul, [facility] [place] [facility] [address] [id number] [place] [address] Jul, [facility] [place] [facility] [address] [id number] [place] [address] Jul, [facility] [place] [facility] [address] [id number] [place] [address] Jul, [facility] [place] [facility] [address] [id number] [place] [address] 02 Jul, 2011 [facility] [place] [facility] [address] [id number] [place] [address] 23 Jun, 2011 [facility] [place] [facility] [address] [id number] [place] [address] 19 Jun, 2011 [facility] [place] [facility] [address] [id number] [place] [address] 15 Jun, 2011 [facility] [place] [facility] [address] [id number] [place] [address] 14 Jun, 2011 [facility] [place] [facility] [address] [id number] [place] [address] 12 Jun, 2011 [facility] [place] [facility] [address] [id number] [place] [address] Jun, [facility] [place] [facility] [address] [id number] [place] [address] Jun, [facility] [place] [facility] [address] [id number] [place] [address] May, [facility] [place] [facility] [address] [id number] [place] [address] 24 May, 2011 [facility] [place] [facility] [address] [id number] [place] [address] 16 May, 2011 [facility] [place] [facility] [address] [id number] [address] May, [facility] [place] [facility] [address] [id number] [place] [address] May, [facility] [place] [facility] [address] [id number] [place] [address] Apr, [facility] [place] [facility] [address] [id number] [place] [address] Apr, [facility] [place] [facility] [address] [id number] [place] [address] 13 Apr, 2011 [facility] [address] [id number] [place] [address] Apr, [facility] [address] [id number] [place] [address] 05 Apr, 2011 [facility] [address] [id number] [place] [address] 30 Mar, 2011 [facility] [address] [id number] [place] [address] Mar, [facility] [id number] [place] [address], [place] [address] Mar, [facility] [address] [id number] [place] [address] [address] Mar, [facility] [address] [facility] [id number] [place] [address] Mar, [facility] [address] [id number] [place] [address] Mar, [facility] [address] [facility] [id number] [place] [address] Mar, [facility] [address] [facility] [id number] [place] [address] [address] Feb, [facility] [address] [id number] [place] [address] Feb, [facility] [place] [facility] [address] [id number] [place] [address] Feb, [facility] [place] [facility] [address] [id number] [place] [address] 04 Feb, 2011 [facility] [place] [facility] [address] [facility] [id number] [place] [address] 31 Jan, 2011 [facility] [address] [id number] [place] [address] Jan, [facility] [address] [facility] [id number], [place] [address] Jan, [facility] [address] [facility] [id number][place] [address] Jan, [facility] [address] [facility] [id number], [place] [address] Nov, [facility] [address] [facility] [id number][place] [address] Mar, [facility] [address] [facility] [id number][place] [address] Mar, [facility] [address] [facility] [id number][place] [address] Mar, [facility] [address] [facility] [id number], [place] [address] Mar, [facility] [address] [facility] [id number], [place] [address] Mar, [facility] [address] [facility] [id number], [place] [address] Mar, [facility] [address] [facility] [id number][place] [address] Feb, [facility] [address] [facility] [id number], [place] [address] Feb, [facility] [address] [facility] [id number], [place] [address] Jan, [facility] [address] [facility] [id number], [place] [address] Jan, [facility] [address] [facility] [id number][place] [address] Jan, IMMUNIZATIONS No Known Immunizations SOCIAL HISTORY Never Assessed REASON FOR VISIT Fever since last night, not urinating often, PT states she feels like she "is going to ". Headache, phuong Manrique MA PLAN OF CARE Activity Details Follow Up pending ED follow up Reason: VITAL SIGNS Height 63 in 2016-12-12 Weight 255.4 lbs 2016-12-12 Temperature 103.0 degrees Fahrenheit 2016-12-12 Heart Rate 88 bpm 2016-12-12 Respiratory Rate 20 2016-12-12 BMI 45.24 kg/m2 2016-12-12 Blood pressure systolic 126 mmHg 2016-12-12 Blood pressure diastolic 70 mmHg 2016-12-12 MEDICATIONS Medication Instructions Dosage Frequency Start Date End Date Duration Status Amitriptyline HCl 100 MG Orally Once a day 1 tablet 24h Oct, Active Fiber Complete - Active Voltaren 1 % Transdermal to knee BID. Max dose 4 grams 2 grams Jan, Active Vitamin D (Ergocalciferol) 61852 UNIT Orally once weekly 1 capsule Jan, 8 weeks Active Toprol XL 50 mg Orally 3 times a day 1 tablet 8h Active Protonix 40 mg Orally Once a day 1 tablet 24h 30 Active Symbicort 80-4.5 MCG/ACT Inhalation Twice [...] a day 1 capsule 8h Active Nystatin 662439 UNIT/GM Externally Twice a day 1 application to thighs as needed 12h Sep, Active Requip 4 MG Orally do not fill in er Once a day 2 tablets 1 to 3 hours before bedtime 24h 30 days Active Norvasc 10 Orally Once a day 1 tablet 24h Active Vitamin C 1000 MG Orally Once a day 1 tablet 24h Active Trileptal 300 MG Orally Twice a day 1 tablet 12h Oct, Active Clonazepam 1 MG Orally Twice a day 1 tablet 12h Active Cymbalta 60 MG Orally Once a day 1 capsule 24h Active Potassium Chloride ER 10 MEQ TAKE ONE CAPSULE BY MOUTH ONCE DAILY WITH FOOD 30 Active Fluticasone Propionate 50 MCG/ACT Nasally Once a day USE ONE SPRAY IN EACH NOSTRIL TWICE DAILY 24h Active Synthroid 137 MCG Orally Once a day 1 tablet 24h 30 Active Nystatin 906382 UNIT/ML Mouth/Throat Four times a day 4 ml 6h Active VESIcare 10 MG Orally Once a day 1 tablet 24h Active Gemfibrozil 600 MG TAKE ONE TABLET BY MOUTH TWICE DAILY 30 Active ProAir HFA 108 (90 Base) MCG/ACT Inhalation every 4 hrs 2 puffs as needed 4h 16 Sep, 2015 Active RESULTS No Results PROCEDURES Procedure Date Ordered Result Body Site URINALYSIS, AUTO, W/O SCOPE Dec 12, 2016 INFLUENZA ASSAY W/OPTIC Dec 12, 2016 INSTRUCTIONS MEDICATIONS ADMINISTERED No Known Medications [...] meningitis December 2016 Hospitalization History [facility] psych for SI 1988 Hospitalization History [facility]-Altered mental status 05/2017
--- OUTSIDE RECORDS SUMMARY | 2018-05-29 08:30 | XMS REPORT ---
Author Author KEIRA FORD [facility] [address] Address [address] [place] [address] Care Team Providers Care Branch Library Clerk Name Role Phone KEIRA FORD Unavailable PROBLEMS Type Condition ICD9-CM Code [id number] Code Onset Dates Condition Status SNOMED Code Problem Long-term use of high-risk medication Z79.899 Active 769484230 Problem Abnormal chest CT R93.8 Active 109678931 Problem Low back pain M54.5 Active 557248911 Problem Generalized anxiety disorder F41.1 Active 56251012 Problem Dysthymic disorder F34.1 Active 01214525 Problem Coronary artery disease involving ione coronary artery of ione heart, angina presence unspecified I25.10 Active 3784801824869 Problem Depressed F32.9 Active 68707653 Problem Fibromyalgia M79.7 Active 058846698 Problem Hypothyroid E03.9 Active 56073321 Problem Essential (primary) hypertension I10 Active 90542651 Problem Insomnia G47.00 Active 438000886 Problem Vitamin D deficiency E55.9 Active 58764366 Problem Anemia in chronic kidney disease D63.1 Active 909487297872729 Problem Chronic kidney disease, unspecified N18.9 Active 970904849 Problem Body mass index (BMI) of 40.0-44.9 in adult Z68.41 Active 408605012 Problem Stage 3 chronic kidney disease N18.3 Active 461456701 Problem Restless leg G25.81 Active 82895512 Problem Palpitations R00.2 Active 83834396 Problem Asthma J45.909 Active 192312518 Problem Primary osteoarthritis of left knee M17.12 Active 779637131 Problem Bipolar disorder, current episode manic without psychotic features F31.10 Active 056513541 Problem Mood disorder F39 Active 81821696 Problem Degenerative tear of medial meniscus of left knee M23.204 Active 149008931 Problem History of colon polyps Z86.010 Active 235088423 Problem Asthma with acute exacerbation in adult J45.901 Active 665049410 Problem Chronic kidney disease, stage 4 (severe) N18.4 Active 839231936 Problem Functional diarrhea K59.1 Active 16592253 Problem Hypokalemia E87.6 Active 37751714 Problem Mixed stress and urge urinary incontinence N39.46 Active 442538976 Problem History of anemia Z86.2 Active 982245559 Problem Other seasonal allergic rhinitis J30.2 Active 555470711 ALLERGIES No Information ENCOUNTERS Encounter Location Date Diagnosis [facility] [place] [id number] [place] [address] 53464- 0301 Oct, [facility] [place] [address] 84294- 3679 August, Fibromyalgia M79.7 [place] [address] 08180- 8924 August, [place] [address] 85679- 0091 August, [facility] [place] [address] 49810- 8648 August, Abnormal chest CT R93.8 [place] [address] 81695- 9374 August, Generalized anxiety disorder F41.1 and Major depressive disorder, recurrent episode with anxious distress F33.9 [place] [id number] [place] [address] 53848- [address] August, Ab[address] chest [address] R93.8 [facility] [place] [id number] [place] [address] 43623- 8955 Jul, [facility] [place] [id number] [place] [address] 16689- 6425 Jul, Chronic kidney disease, stage 4 (severe) N18.4 [facility] [place] [id number] [place] [address] 15040- 1072 Jul, [facility] [place] [address] 26910- 0751 Jul, Restless leg G25.81 ; Mixed stress and urge urinary incontinence N39.46 and Fibromyalgia M79.7 [facility] [place] [id number] [place] [address] 88621- 5206 Jul, Chronic kidney disease, stage 4 (severe) N18.4 [facility] [place] [id number] [place] [address] 84825- 3718 Jun, Orthostatic hypotension I95.1 ; Chronic kidney disease, stage 4 (severe) N18.4 ; Chest wall discomfort R07.89 and Body mass index (BMI) of 40.0-44.9 in adult Z68.41 [place] [id number] [place] [address] 79385- 8860 Jun, [place] [id number] [place] [address] 12981- 4569 Jun, Orthostatic hypotension I95.1 [facility] [place] [id number] [place] [address] 12790- 0476 Jun, [facility] [id number] [place] [address] 39845 -3695 Jun, Orthostatic hypotension I95.1 ; Dysuria R30.0 and Acute cystitis without hematuria N30.00 [facility] [place] [id number] [place] [address] 77777- 9046 Jun, [facility] [place] [id number] [place] [address] 12814- 3730 Jun, Chronic kidney disease, stage 4 (severe) N18.4 [facility] [place] [id number] [place] [address] 92805- 4489 Jun, Fibromyalgia M79.7 [facility] [place] [id number] [place] [address] 99705- 3174 Jun, [facility] [place] [id number] [place] [address] 29945- 8869 Jun, [facility] [place] [id number] [place] [address] 67718- [address]207 May, Ab[address] chest [address] R93.8 and Stage 3 chronic kidney disease N18.3 [facility] [place] [id number] [place] [address] 54310- 1005 May, Chronic kidney disease, stage 4 (severe) N18.4 [facility] [place] [id number] [place] [address] 09271- 8529 May, Chronic kidney disease, stage 4 (severe) N18.4 [facility] [place] [id number] [place] [address] 81141- [address] May, [address] R93.8 [facility] [place] [id number] [place] [address] 88701- 0065 May, [place] [id number] [place] [address] 38338- 9009 May, [place] [id number] [place] [address] 41486- 7438 May, Generalized anxiety disorder F41.1 and Major depressive disorder, recurrent episode with anxious distress F33.9 [place] [id number] [place] [address] 81133- 4227 May, Mood disorder F39 [place] [id number] [place] [address] 16164- 3405 Apr, [place] [id number] [place] [address] 81881- 5780 Apr, Infected skin lesion L08.9 and Muscle strain of right shoulder region, initial encounter S46.911A [place] [id number] [place] [address] 22562- 0738 Apr, Generalized anxiety disorder F41.1 and Major depressive disorder, recurrent episode with anxious distress F33.9 [place] [id number] [place] [address] 00523- 9950 Apr, [facility] [place] [id number] [place] [address] 93965- 5995 Apr, Recent urinary tract infection Z87.440 and Hypothyroid E03.9 [facility] [place] [id number] [place] [address] 52029- 1934 Apr, Generalized anxiety disorder F41.1 and Major depressive disorder, recurrent episode with anxious distress F33.9 [facility] [place] [id number] [place] [address] 73920- 7761 Apr, Recent urinary tract infection Z87.440 [place] [id number] [place] [address] 24636- 7931 Mar, [facility] [id number] [place] [address] 16342 -3251 Mar, Dysuria R30.0 ; Acute cystitis without hematuria N30.00 and BMI 40.0-44.9, adult Z68.41 [place] [id number] [place] [address] 16895- 1026 14 Mar, 2017 [place] [id number] [place] [address] 57099- 5870 Mar, [place] [id number] [place] [address] 37615- 1518 07 Mar, 2017 Generalized anxiety disorder F41.1 and Major depressive disorder, recurrent episode with anxious distress F33.9 [facility] [place] [id number] [place] [address] 94757- 0665 Feb, Conjunctivitis, bacterial H10.9 [facility] [place] [id number] [place] [address] 77571- 2253 Feb, [facility] [id number] [place] [address] 87820 -6980 15 Feb, 2017 Conjunctivitis, bacterial H10.9 [facility] [place] [id number] [place] [address] 54293- 0438 Feb, [facility] [id number] [place] [address] 51855 -6967 Feb, Dysuria R30.0 ; Acute cystitis N30.00 and BMI 40.0-44.9, adult Z68.41 [facility] [place] [id number] [place] [address] 26538- 1686 Feb, [facility] [place] [address] 25147- 9537 Feb, Generalized anxiety disorder F41.1 and Major depressive disorder, recurrent episode with anxious distress F33.9 [place] [address] 02698- 7450 Feb, Mood disorder F39 and BMI 40.0-44.9, adult Z68.41 [facility] [place] [address] 09881- 6771 Jan, [facility] [place] [address] 02872- 7750 Jan, [facility] [place] [address] 78179- 4508 Jan, Hypothyroid E03.9 [facility] [place] [id number] [place] [address] 06285- 3879 Jan, [facility] [place] [id number] [place] [address] 77098- 2915 Jan, Chronic kidney disease, unspecified N18.9 ; Hypokalemia E87.6 ; Essential (primary) hypertension I10 ; Fibromyalgia M79.7 ; Coronary artery disease involving ione coronary artery of ione heart, angina presence unspecified I25.10 ; Hypothyroid E03.9 and Encounter for immunization Z23 [facility] [place] [id number] [place] [address] 80492- 1029 04 Jan, 2017 Hypothyroid E03.9 [facility] [place] [address] 79047- 3579 Jan, [facility] [place] [address] [address]- 0882 28 Dec, 2016 Vitamin D deficiency E55.9 [facility] [place] [address] [place] [address] 69457- 1341 28 Dec, 2016 Primary osteoarthritis of left knee M17.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 [facility] [place] [id number] [place] [address] 16008- 1423 19 Dec, 2016 Fibromyalgia M79.7 [facility] [place] [id number] [place] [address] 78796- 1774 18 Dec, 2016 Mood disorder F39 [place] [id number] [place] [address] 96132- 2574 13 Dec, 2016 [place] [id number] [place] [address] 63421- 4961 13 Dec, 2016 Generalized anxiety disorder F41.1 and Major depressive disorder, recurrent episode with anxious distress F33.9 [facility] [place] [id number] [place] [address] 54198- 9407 11 Dec, 2016 [place] [id number] [place] [address] 08129- 5227 08 Dec, 2016 Streptococcal meningitis G00.2 [facility] [place] [address] [place] [address] 34003- 0134 07 Dec, 2016 Streptococcal meningitis G00.2 [facility] [place] [address] [address]- 8806 07 Dec, 2016 [facility] [place] [id number] [place] [address] 94380- 4526 06 Dec, 2016 Streptococcal meningitis G00.2 [facility] [place] [address] [place] [address] 35496- 1069 Dec, [facility] [place] [id number] [place] [address] 53791- 2120 Dec, Major depressive disorder, recurrent episode with anxious distress F33.9 [facility] [place] [id number] [place] [address] 11406- 8392 Nov, Fever, unspecified fever cause R50.9 [facility] [place] [id number] [place] [address] 95848- 5843 Nov, [facility] [place] [id number] [place] [address] 66026- 5209 Nov, Hypothyroid E03.9 [facility] [place] [id number] [place] [address] 38090- 4618 Nov, Generalized anxiety disorder F41.1 and Major depressive disorder, recurrent episode with anxious distress F33.9 [facility] [place] [id number] [place] [address] 74101- 1963 Nov, [facility] [address] [id number] Oct, Dental examination Z01.20 [facility] [place] [id number] [place] [address] 30770- 8335 Oct, Generalized anxiety disorder F41.1 and Major depressive disorder, recurrent episode with anxious distress F33.9 [facility] [place] [address] [place] [address] 97898- 9388 Oct, Chronic kidney disease, stage 4 (severe) N18.4 [facility] [place] [id number] [place] [address] 34559- 1021 Oct, [facility] [place] [id number] [place] [address] 64376- 4143 Oct, Fibromyalgia M79.7 [facility] [place] [id number] [place] [address] 81801- 6115 Oct, [facility] [place] [address] [place] [address] 75320- 3240 Oct, Generalized anxiety disorder F41.1 ; Major depressive disorder, recurrent episode with anxious distress F33.9 and Bipolar disorder, current episode manic without psychotic features F31.10 [place] [address] [address]- 5798 Sep, [place] [id number] [place] [address] 61835- 5994 Sep, [place] [id number] [place] [address] 07253- 6595 15 Sep, 2016 Vitamin D deficiency E55.9 [place] [id number] [place] [address] 40344- 8442 14 Sep, 2016 Vitamin D deficiency E55.9 [place] [id number] [place] [address] 99935- 6563 Sep, [place] [id number] [place] [address] 07159- 2589 Sep, Chronic kidney disease, stage 4 (severe) N18.4 ; Hypothyroid E03.9 ; Restless leg G25.81 ; Fibromyalgia M79.7 ; Essential ( primary) hypertension I10 ; Vitamin D deficiency E55.9 ; Dyspepsia R10.13 ; Anemia in chronic kidney disease D63.1 ; Chronic kidney disease, unspecified N18.9 ; Coronary artery disease involving ione coronary artery of ione heart , angina presence unspecified I25.10 ; Screening breast examination Z12.39 and Low back pain M54.5 [place] [address] [place] [address] 67696- 5381 August, Generalized anxiety disorder F41.1 and Major depressive disorder, recurrent episode with anxious distress F33.9 [place] [address] [address]- 4633 August, Generalized anxiety disorder F41.1 and Major depressive disorder, recurrent episode with anxious distress F33.9 [place] [id number] [place] [address] 87077- 8658 August, Fibromyalgia M79.7 [place] [id number] [place] [address] 14299- 2185 Jul, Generalized anxiety disorder F41.1 and Major depressive disorder, recurrent episode with anxious distress F33.9 [place] [id number] [place] [address] 54922- 7739 Jul, Fibromyalgia M79.7 [place] [id number] [place] [address] 83477- 4345 Jul, Generalized anxiety disorder F41.1 [place] [id number] [place] [address] 96980- 7377 May, [place] [id number] [place] [address] 52151- 8032 May, Hypothyroid E03.9 [place] [id number] [place] [address] 11949- 5654 May, Chronic kidney disease, stage 4 (severe) N18.4 ; Hypothyroid E03.9 ; Restless leg G25.81 ; Fibromyalgia M79.7 ; Essential ( primary) hypertension I10 ; Vitamin D deficiency E55.9 ; Dyspepsia R10.13 ; Acute non-recurrent maxillary sinusitis J01.00 ; Anemia in chronic kidney disease D63.1 ; Chronic kidney disease, unspecified N18.9 and Coronary artery disease involving ione coronary artery of ione heart, angina presence unspecified I25.10 [place] [address] [place] [address] 84906- 5112 May, Vitamin D deficiency, unspecified E55.9 [place] [id number] [place] [address] 61379- 0814 May, Generalized anxiety disorder F41.1 and Major depressive disorder, recurrent episode with anxious distress F33.9 [place] [id number] [place] [address] 14371- 1624 Apr, Pain in right knee M25.561 and Pain in left knee M25.562 [place] [id number] [place] [address] 13561- 1425 Apr, [facility] [place] [address], [place] [address]- 3452 Apr, [facility] [place] [id number] [place] [address] 84887- 6569 Apr, [facility] [place] [id number] [place] [address] 86675- 6544 Mar, Generalized anxiety disorder F41.1 and Major depressive disorder, recurrent episode with anxious distress F33.9 [facility] [place] [id number] [place] [address] 92659- 5427 Mar, Generalized anxiety disorder F41.1 and Major depressive disorder, recurrent episode with anxious distress F33.9 [facility] [place] [id number] [place] [address] 05357- 4551 Mar, [facility] [place] [id number] [place] [address] 82263- 7661 Mar, [facility] [place] [id number] [place] [address] 32854- 3285 Mar, [facility] [place] [id number] [place] [address] 47111- 1360 Mar, Asthma J45.909 and Fibromyalgia M79.7 [facility] [place] [id number] [place] [address] 35238- 2206 Mar, Chronic kidney disease, stage 4 (severe) N18.4 ; Vitamin D deficiency E55.9 and Essential (primary) hypertension I10 [facility] [place] [id number] [place] [address] 94521- 3375 Feb, [facility] [place] [id number] [place] [address] 81386- 4197 Feb, Dysuria R30.0 ; Mixed stress and urge urinary incontinence N39.46 ; Fibromyalgia M79.7 and Chronic kidney disease, stage IV (severe) N18.4 [facility] [place] [id number] [place] [address] 11331- 8327 Feb, Chronic kidney disease, stage 4 (severe) N18.4 [facility] [place] [id number] [place] [address] 04400- 2289 Feb, Chronic kidney disease, stage 4 (severe) N18.4 [facility] [place] [id number] [place] [address] 00812- 3568 Feb, [facility] [place] [id number] [place] [address] 52047- 3053 Feb, Vitamin D deficiency, unspecified E55.9 [facility] [place] [id number] [place] [address] 02606- 1634 Jan, [facility] [place] [id number] [place] [address] 82718- 4533 Jan, [facility] [place] [id number] [place] [address] 75266- 9921 Dec, [facility] [place] [id number] [place] [address] 57223- 1444 Dec, Chronic kidney disease, stage 4 (severe) N18.4 [facility] [place] [id number] [place] [address] 81181- 8914 Dec, Dysthymic disorder F34.1 and Generalized anxiety disorder F41.1 [place] [id number] [place] [address] 76032- 1519 Dec, [facility] [place] [id number] [place] [address] 77650- 6971 Dec, [facility] [place] [id number] [place] [address] 89020- 0517 08 Dec, 2015 Dysthymic disorder F34.1 and Generalized anxiety disorder F41.1 [facility] [place] [id number] [place] [id number] 08 Dec, 2015 Dysuria R30.0 ; Chronic kidney disease, stage 4 (severe) N18.4 ; Hypertension I10 ; Dyspepsia R10.13 ; Yeast dermatitis B37.2 ; Palpitations R00.2 ; Hypothyroid E03.9 ; Functional diarrhea K59.1 and Other seasonal allergic rhinitis J30.2 [facility] [id number] [place] [phone] Dec, [facility] [address] [phone] Nov, Dysuria R30.0 and Stress incontinence N39.3 [place] [address] [address] Nov, [place] [address] [address] Nov, [place] [address] [address] Nov, Osteoarthritis of knees, bilateral M17.0 [place] [address] [address] Nov, Dysthymic disorder F34.1 and Generalized anxiety disorder F41.1 [place] [address] [address] [address] [address]- 9528 Nov, [place] [id number] [place] [address] 25809- 9322 Nov, [place] [address] 22073- 0963 Nov, Urgency of urination R39.15 [place] [address] 26312- 9832 Nov, [place] [address] 47083- 7413 Nov, Chronic kidney disease, stage 4 (severe) N18.4 [place] [address] 09452- 8083 Oct, Hypertension I10 ; Coronary artery disease involving ione coronary artery of ione heart, angina presence unspecified I25.10 ; Palpitations R00.2 ; Hypothyroid E03.9 ; Right foot pain M79.671 ; Functional diarrhea K59.1 and Other seasonal allergic rhinitis J30.2 [facility] [facility] [id number] [place] [address] 93293- 7847 Oct, Dysthymic disorder F34.1 and Generalized anxiety disorder F41.1 [facility] [facility] [address] 97796- 8734 Sep, [facility] [place] [id number] [place] [address] 04674- 4978 Sep, [facility] [id number] [place] [address] 09063- 7731 Sep, [facility] [address] 18112- 0863 Sep, [facility] [id number] [place] [address] 47574- 6085 Sep, [facility] [id number] [place] [address] 96086- 8541 Sep, Dysthymic disorder F34.1 and Generalized anxiety disorder F41.1 [facility] [id number] [place] [address] 97517- 6469 Sep, Asthma with acute exacerbation in adult J45.901 ; Dysuria R30.0 ; Chronic kidney disease, stage 4 (severe) N18.4 and History of anemia Z86.2 [facility] [id number] [place] [address] 78870- 5526 Sep, Generalized anxiety disorder F41.1 and Dysthymic disorder F34.1 [facility] [id number] [place] [address] 76590- 4754 August, Screening breast examination Z12.39 and Acute recurrent maxillary sinusitis J01.01 [place] [address] 13408- 5576 August, Osteoarthritis of knees, bilateral M17.0 [facility] [id number] [place] [address] 53962- 8079 August, Chronic kidney disease, stage 4 (severe) N18.4 ; Acute non- recurrent maxillary sinusitis J01.00 ; Urinary problem R39.89 ; Bowel habit changes R19.4 ; Functional diarrhea K59.1 and History of colon polyps Z86.010 [facility] [id number] [place] [address] 99575- 9746 Jul, Dysthymic disorder F34.1 and Generalized anxiety disorder F41.1 [place] [address] 45101- 1531 Jul, [facility] [id number] [place] [address] 50759- 8542 Jul, Dysthymic disorder F34.1 ; Generalized anxiety disorder F41.1 and penitentiary use of drug Z79.899 [facility] [id number] [place] [address] 41926- 1622 Jul, [facility] [id number] [place] [address] 30019- 6670 Jun, [facility] [id number] [place] [address] 61604- 6210 Jun, [facility] [id number] [place] [address] 25055- 4157 May, [facility] [id number] [place] [address] 72855- 0628 May, Dysthymic disorder F34.1 and Generalized anxiety disorder F41.1 [facility] [id number] [place] [address] 41354- 1508 Apr, Kidney disease N28.9 [facility] [id number] [place] [address] 60128- 5872 Apr, Dysthymic disorder F34.1 and Generalized anxiety disorder F41.1 [facility] [id number] [place] [address] 77280- 7090 Apr, Chronic kidney disease, stage 4 (severe) N18.4 [place] [id number] [place] [address] 07023- 2393 Apr, Generalized anxiety disorder F41.1 ; Major depression, recurrent F33.9 and Sleep disturbance G47.9 [place] [address] 17247- 0024 Mar, Generalized anxiety disorder F41.1 and Dysthymic disorder F34.1 [place] [address] 38849- 2831 Mar, Generalized anxiety disorder F41.1 ; Dysthymic disorder F34.1 and Insomnia G47.[address] 57051- 8005 Mar, [place] [address] 92130- 8194 Mar, [address] 56513- 6434 Mar, Osteoarthritis of knees, bilateral M17.[address] 56846- 1834 Mar, Hypertension I10 ; Hypothyroid E03.9 ; Dysthymic disorder F34.1 ; Chronic kidney disease, stage 4 (severe) N18.4 and Nausea & vomiting R11.2 [place] [id number] [place] [address] 97897- 2378 Mar, Generalized anxiety disorder F41.1 ; Dysthymic disorder F34.1 and Insomnia G47.00 [place] [id number] [place] [address] 06484- 8527 Mar, Dehydration E86.0 ; Chronic kidney disease, stage 4 (severe ) N18.4 and Nausea & vomiting R11.2 [facility] [address] [address] Mar, Gastroenteritis K52.9 [facility] [place] [id number] [place] [address] 73397- 9395 Mar, [facility] [place] [id number] [place] [address] 99679- 5498 Mar, [facility] [place] [address] 85459- 8610 Feb, Dysthymic disorder F34.1 and Generalized anxiety disorder F41.1 [place] [address] 64222- 9100 Jan, UTI (urinary tract infection) N39.0 ; Asthma J45.909 ; Coronary artery disease involving ione coronary artery of ione heart, angina presence unspecified I25.10 ; Hypertension I10 ; Hypothyroid E03.9 ; Vitamin D deficiency E55.9 ; Insomnia G47.00 ; Palpitations R00.2 ; Depressed F32.9 ; Restless leg G25.81 and Anxiety F41.9 [place] [id number] [place] [address] 98083- 4281 Jan, Dysthymic disorder F34.1 and Generalized anxiety disorder F41.1 [place] [id number] [place] [address] 31093- 2697 Jan, [place] [id number] [place] [address] 71454- 9521 Dec, [facility] [id number] [place] [address] 81197- 3613 Dec, Alkalosis 276.3 ; Chronic kidney disease, 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.4 ; Hyperpotassemia 276.7 ; Secondary hyperparathyroidism, renal 588.81 ; Proteinuria 791.0 ; Unspecified vitamin D deficiency 268.9 ; Anemia in chronic kidney disease 285.21 ; Other and unspecified hyperlipidemia 272.4 ; Hypertension, essential, benign 401.1 and Chronic kidney disease (CKD), stage III (moderate) 585.3 [place] [address], [place] [address]- 1074 Dec, [place] [id number] [place] [address] 05958- 7139 Dec, Depressive disorder, not elsewhere classified 311 and Generalized anxiety disorder 300.02 [place] [id number] [place] [address] 71823- 1922 Dec, [place] [id number] [place] [address] 25090- 4293 Dec, [place] [id number] [place] [address] 71549- 1666 Nov, Depressive disorder, not elsewhere classified 311 and Generalized anxiety disorder 300.02 [place] [id number] [place] [address] 29681- 3735 Nov, Arthritis of both knees 716.96 [place] [id number] [place] [address] 07837- 6107 Nov, PAF (paroxysmal atrial fibrillation) 427.31 ; CAD (coronary artery disease) 414.00 ; Chest pain 786.50 and Chronic kidney disease (CKD) stage G4/A1, severely decreased glomerular filtration rate (GFR) between 15-29 mL/min/1.73 square meter and albuminuria creatinine ratio less than 30 mg/g 585.4 [address] [place] [address] 48585- 4789 Oct, Coronary atherosclerosis of unspecified type of vessel, ione or graft 414.00 ; Chronic kidney disease, 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.4 ; Hypertension 401.9 and Edema 782.3 [place] [id number] [place] [address] 69638- 8433 Oct, Depressive disorder, not elsewhere classified 311 and Generalized anxiety disorder 300.02 [address] [place] [address] 27823- 3780 Oct, Depressive disorder, not elsewhere classified 311 and Generalized anxiety disorder 300.02 [facility] [place] [address] [place] [address] 76684- 0444 Oct, [facility] [place] [id number] [place] [address] 44685- 4670 Oct, [facility] [place] [id number] [place] [address] 75549- 5069 Sep, [facility] [place] [address] 76721- 4857 Sep, Chronic kidney disease, 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.4 [facility] [place] [address] 49340- 8418 Sep, [facility] [place] [id number] [place] [address] 42173- 1894 Sep, Coronary atherosclerosis of unspecified type of vessel, ione or graft 414.00 ; Hypertension 401.9 ; Edema 782.3 and Hypothyroidism 244.9 [facility] [place] [id number] [place] [address] 54483- 4186 Sep, Coronary atherosclerosis of unspecified type of vessel, ione or graft 414.00 ; Hypertension 401.9 ; Fibromyalgia 729.1 ; Edema 782.3 ; Hypothyroidism 244.9 and Anemia 285.9 [facility] [place] [id number] [place] [address] 87339- 5716 Sep, Anxiety disorder, unspecified 300.00 and Depressive disorder , not elsewhere classified 311 [facility] [place] [id number] [place] [address] 98187- 0208 Sep, [facility] [place] [id number] [place] [address] 30421- 8794 August, Generalized anxiety disorder 300.02 [facility] [place] [id number] [place] [address] 78286- 5251 August, Closed fracture of lateral malleolus 824.2 [facility] [place] [id number] [place] [address] 76868- 2884 14 Jul, 2014 [facility] [place] [facility] [address] [id number] [place] [address]- 3157 Jul, [facility] [place] [facility] [address] [id number] [place] [address]- 1953 Jun, [facility] [place] [facility] [address] [facility] [id number] [place] [address]- 7070 Jun, [facility] [place] [facility] [address] [id number] [place] [address]- 1256 Jun, [facility] [place] [facility] [address] [id number] [place] [address]- 3945 Jun, [facility] [place] [facility] [address] [facility] [id number] [place] [address]- 7153 Jun, [facility] [place] [facility] [address] [facility] [id number] [place] [address]- 8105 Jun, [facility] [place] [facility] [address] [facility] [id number], [place] [address]- 0603 May, [facility] [place] [facility] [address] [facility] [id number] [place] [address]- 0073 May, 2014 [facility] [place] [facility] [address] [facility] [id number], [place] [address]- 0217 18 May, 2014 [facility] [place] [facility] [address] [facility] [id number], [place] [address]- 5176 18 May, 2014 [facility] [place] [facility] [address] [facility] [id number], [place] [address]- 2983 16 May, 2014 [facility] [place] [facility] [address] [facility] [id number] [place] [address]- 9234 16 May, 2014 [facility] [place] [facility] [address] [facility] [id number], [place] [address]- 4761 13 May, 2014 [facility] [place] [facility] [address] [facility] [id number] 7522 13 May, 2014 [facility] [place] [facility] [address] [id number] [place] [address]- 3188 May, 2014 [facility] [place] [facility] [address] [id number] [place] [address]- 4416 May, [facility] [place] [facility] [address] [id number] [place] [address]- 9103 Apr, [facility] [place] [facility] [address] [id number] [place] [address]- 9361 Apr, [facility] [place] [facility] [address] [id number] [place] [address]- 6538 Mar, [facility] [place] [facility] [address] [id number] [place] [address]- 9498 Mar, [facility] [place] [facility] [address] [id number] [place] [address]- 0947 Mar, [facility] [place] [facility] [address] [id number] [place] [address]- 4591 Mar, [facility] [place] [facility] [address] [id number] [place] [address]- 8909 Mar, [facility] [place] [facility] [address] [id number] [place] [address]- 5996 Mar, [facility] [place] [facility] [address] [id number] [place] [address]- 6271 Mar, [facility] [place] [facility] [address] [id number] [place] [address]- 8459 Feb, [facility] [place] [facility] [address] [id number] [place] [address]- 7123 Feb, [facility] [place] [facility] [address] [id number] [place] [address]- 0635 Feb, [facility] [place] [facility] [address] [id number] [place] 5253 Jan, [facility] [place] [facility] [address] [id number] [place] [address]- 7854 Jan, [facility] [place] [facility] [address] [id number] [place] [address]- 4611 Jan, [facility] [place] [facility] [address] [id number] [place] [address]- 0461 Jan, [facility] [place] [facility] [address] [id number] [place] [address]- 1453 Jan, [facility] [place] [facility] [address] [id number] [place] [address]- 9581 Jan, [facility] [place] [facility] [address] [id number] [place] [address]- 7308 Jan, [facility] [place] [facility] [address] [id number] [place] [address]- 0759 Jan, [facility] [place] [facility] [address] [id number] [place] [address]- 8718 Jan, [facility] [place] [facility] [address] [id number] [place] [address]- 1357 Jan, [facility] [place] [facility] [address] [id number] [place] [address]- 3432 Nov, [facility] [place] [facility] [address] [id number] [place] [address]- 1669 Nov, [facility] [place] [facility] [address] [id number] [place] [address]- 4349 Nov, [facility] [place] [facility] [address] [id number] [place] [address]- 6992 Oct, [facility] [place] [facility] [address] [id number] [place] [address]- 8008 Oct, [facility] [place] [facility] [address] [id number] [place] 6271 Oct, [facility] [place] [facility] [address] [id number] [place] [address]- 0834 Oct, [facility] [place] [facility] [address] [id number] [place] [address]- 3831 Oct, [facility] [place] [facility] [address] [id number] [place] [address]- 4298 Oct, [facility] [place] [facility] [address] [id number] [place] [address]- 0834 Oct, [facility] [place] [facility] [address] [id number] [place] [address]- 4360 Oct, [facility] [place] [facility] [address] [id number] [place] [address]- 7887 Oct, [facility] [place] [facility] [address] [id number] [place] [address]- 1429 Sep, [facility] [place] [facility] [address] [id number] [place] [address]- 1016 Sep, [facility] [place] [facility] [address] [id number] [place] [address]- 6577 Sep, [facility] [place] [facility] [address] [id number] [place] [address]- 0303 Sep, [facility] [place] [facility] [address] [id number] [place] [address]- 6746 Sep, [facility] [place] [facility] [address] [id number] [place] [address]- 4589 Sep, [facility] [place] [facility] [address] [id number] [place] [address]- 7257 Sep, [facility] [place] [facility] [address] [id number] [place] [address]- 8913 Sep, [facility] [place] [facility] [address] [id number] [place] [address]- 4521 Sep, [facility] [place] [facility] [address] [id number] [place] [address]- 1642 August, [facility] [place] [facility] [address] [id number] [place] [address]- 6771 August, [facility] [place] [facility] [address] [id number] [place] [address]- 3419 August, [facility] [place] [facility] [address] [id number] [place] [address]- 9686 August, [facility] [place] [facility] [address] [id number] [place] [address]- 7750 August, [facility] [place] [facility] [address] [id number] [place] [address]- 9977 August, [facility] [place] [facility] [address] [id number] [place] [address]- 0387 Jul, [facility] [place] [facility] [address] [id number] [place] [address]- 6790 Jul, [facility] [place] [facility] [address] [id number] [place] [address]- 0748 Jul, [facility] [place] [facility] [address] [id number] [place] [address]- 0597 Jul, [facility] [place] [facility] [address] [id number] [place] [address]- 8467 Jul, [facility] [place] [facility] [address] [id number] [place] [address]- 4106 Jul, [facility] [place] [facility] [address] [id number] [place] [address]- 9453 Jun, [facility] [place] [facility] [address] [id number] [place] [address]- 2138 Jun, [facility] [place] [facility] [address] [id number] [place] [address]- 5387 May, [facility] [place] [facility] [address] [id number] [place] [address]- 9817 May, [facility] [place] [facility] [address] [id number] [place] [address]- 1540 May, [facility] [place] [facility] [address] [id number] [place] [address]- 3001 10 May, 2013 [facility] [address] [id number] [place] [address]- 2581 Apr, [facility] [place] [facility] [address] [id number] [place] [address]- 9137 Apr, [facility] [address] [id number] [place] [address]- 9617 18 Mar, 2013 [facility] [place] [facility] [address] [id number] [place] [address]- 6041 18 Mar, 2013 [facility] [address] [id number] [place] [address]- 9920 Mar, [facility] [place] [facility] [address] [id number] [place] [address]- 4413 Mar, [facility] [address] [facility] [id number] [place] [address]- 8158 Mar, [facility] [address] [id number] [place] [address]- 9339 Mar, [facility] [place] [facility] [address] [id number] [place] [address]- 9377 Feb, [facility] [address] [facility] [id number] [place] [address]- 1688 Feb, [facility] [place] [facility] [address] [id number] [place] [address]- 4280 14 Feb, 2013 [facility] [place] [facility] [address] [id number] [place] [address]- 3859 14 Feb, 2013 [facility] [place] [facility] [address] [id number] [place] 5513 05 Feb, 2013 [facility] [place] [facility] [address] [facility] [id number] [place] [address]- 2085 05 Feb, 2013 [facility] [place] [facility] [address] [id number] [place] [address]- 6859 Jan, [facility] [place] [facility] [address] [id number] [place] [address]- 4149 Jan, [facility] [place] [facility] [address] [id number] [place] [address]- 7372 Jan, [facility] [place] [facility] [address] [id number] [place] [address]- 4050 Jan, [facility] [place] [facility] [address] [id number] [place] [address]- 1774 Jan, [facility] [place] [facility] [address] [id number] [place] [address]- 5853 Jan, [facility] [place] [facility] [address] [id number] [place] [address]- 4981 Dec, [facility] [place] [facility] [address] [id number] [place] [address]- 6577 Dec, [facility] [place] [facility] [address] [id number] [place] [address]- 3371 Nov, [facility] [place] [facility] [address] [id number] [place] [address]- 3010 Nov, [facility] [place] [facility] [address] [id number] [place] [address]- 0500 Oct, [facility] [place] [facility] [address] [id number] [place] [address]- 9852 Oct, [facility] [place] [facility] [address] [id number] [place] [address] Oct, [facility] [place] [facility] [address] [id number] [place] [address] Oct, [facility] [place] [facility] [address] [id number] [place] [address] Oct, [facility] [place] [facility] [address] [id number] [place] [address] Oct, [facility] [place] [facility] [address] [id number] [place] [address] Sep, [facility] [address] [id number] [place] [address] Sep, [facility] [place] [facility] [address] [id number] [place] [address] Sep, [facility] [address] [id number] [place] [address] Sep, [facility] [place] [facility] [address] [id number] [place] [address] August, [facility] [address] [id number] [place] [address] August, [facility] [address] [id number] [place] [address] August, [facility] [address] [id number] [place] [address] August, [facility] [address] [id number] [place] [address] August, [facility] [address] [id number] [place] [address] Jul, [facility] [place] [facility] [address] [id number] [place] [address] Jul, [facility] [address] [id number] [place] [address] Jul, [facility] [place] [facility] [address] [id number] [place] [address] Jul, [facility] [place] [facility] [address] [id number] [place] [address] Jul, [facility] [place] [facility] [address] [id number] [place] [address] Jul, [facility] [place] [facility] [address] [id number] [place] [address] Jul, [facility] [place] [facility] [address] [id number] [place] [address] Jul, [facility] [address] [facility] [id number] [place] [address] Jul, [facility] [address] [facility] [id number] [place] [address] Jul, [facility] [address] [facility] [id number] [id number] Jun, [facility] [address] [facility] [id number] [place] [address] Jun, [facility] [address] [facility] [id number] [place] [address] Jun, [facility] [address] [facility] [id number] [place] [address] Jun, [facility] [id number] [address] Jun, [facility] [address] [id number] [address] May, [facility] [address] [id number] [address] May, [facility] [address] [facility] [id number], [place] [address] May, [facility] [address] [facility] [id number] [place] [address] Apr, [facility] [address] [facility] [id number] [place] [address] Apr, [facility] [address] [facility] [id number] [place] [address] Apr, [facility] [address] [facility] [id number] [place] [address] Apr, [facility] [address] [facility] [id number], [place] [address] Apr, [facility] [place] [facility] [address] [id number] [place] [address] Apr, [facility] [place] [facility] [address] [id number] [place] [address] Mar, [facility] [place] [facility] [address] [id number] [place] [address] Mar, [facility] [place] [facility] [address] [id number] [place] [address] Mar, [facility] [place] [facility] [address] [id number] [place] [address] Mar, [facility] [place] [facility] [address] [id number] [place] [address] Feb, [facility] [place] [facility] [address] [id number] [place] [address] Feb, [facility] [place] [facility] [address] [id number] [place] [address] Feb, [facility] [place] [facility] [address] [id number] [place] [address] Feb, [facility] [place] [facility] [address] [id number], [place] [address] Feb, [facility] [place] [facility] [address] [facility] [id number], [place] [address] Feb, [facility] [place] [facility] [address] [id number], [place] [address] Feb, [facility] [place] [facility] [address] [id number], [place] [address] Feb, [facility] [place] [facility] [address] [id number], [place] [address] Feb, [facility] [place] [facility] [address] [facility] [id number], [place] [address] Feb, [facility] [place] [facility] [address] [id number], [place] [address] Feb, [facility] [place] [facility] [address] [id number] [place] [address] Feb, [facility] [place] [facility] [address] [id number], [place] [address] Feb, [facility] [place] [facility] [address] [facility] [id number] [place] [address] Feb, [facility] [place] [facility] [address] [id number] [place] [address] 22[address] Feb, [facility] [place] [facility] [address] [facility] [id number] [place] [address] Feb, [facility] [place] [facility] [address] [facility] [id number] [place] [address] Jan, [facility] [place] [facility] [address] [facility] [id number], [place] [address] Jan, [facility] [place] [facility] [address] [facility] [id number], [place] [address] 31 Jan, 2012 [facility] [place] [facility] [address] [facility] [id number], [place] [address] 31 Jan, 2012 [facility] [place] [facility] [address] [facility] [id number], [place] [address]- [address]4 30 Jan, 2012 [facility] [place] [facility] [address] [facility] [id number], [place] [address] 9747 Jan, [facility] [place] [facility] [address] [facility] [id number], [place] [address] 8944 25 Jan, 2012 [facility] [place] [facility] [address] [facility] [id number], [place] [address] 33[address] 16 Jan, 2012 [facility] [place] [facility] [address] [facility] [id number], [place] [address] 16 Jan, 2012 [facility] [place] [facility] [address] [facility] [id number], [place] [address] 15 Jan, 2012 [facility] [place] [facility] [address] [id number] [place] [address]- [address] 15 Jan, 2012 [facility] [place] [facility] [address] [id number] [place] [address] 8376 01 Jan, 2012 [facility] [place] [facility] [address] [id number] [place] [address] 2546 26 Dec, 2011 [facility] [place] [facility] [address] [id number] [place] [address] 2546 26 Dec, 2011 [facility] [place] [facility] [address] [id number] [place] [address] 2544 24 Dec, 2011 [facility] [place] [facility] [address] [id number] [place] [address] 7676 23 Dec, 2011 [facility] [place] [facility] [address] [id number] [place] [address]- 4216 22 Dec, 2011 [facility] [place] [facility] [address] [id number] [place] [address] 8195 21 Dec, 2011 [facility] [place] [facility] [address] [id number] [place] [address] 254 20 Dec, 2011 [facility] [place] [facility] [address] [id number] [place] [address] 2549 20 Dec, 2011 [facility] [place] [facility] [address] [id number] [place] [address] 3305 07 Dec, 2011 [facility] [place] [facility] [address] [id number] [place] [address] 2546 06 Sep, 2011 [facility] [place] [facility] [address] [id number] [place] [address] 2546 06 Sep, 2011 [facility] [place] [facility] [address] [id number] [place] [address] 2546 05 Dec, 2011 [facility] [place] [facility] [address] [id number] [place] [address]- 2546 23 Nov, 2011 [facility] [place] [facility] [address] [id number] [place] [address] 1872 Nov, [facility] [place] [facility] [address] [id number] [place] [address]856 Nov, [facility] [place] [facility] [address] [id number] [place] [address] 6426 Nov, [facility] [place] [facility] [address] [id number] [place] [address]- 8232 Nov, [facility] [place] [facility] [address] [id number] [place] [address]- 2547 Nov, [facility] [place] [facility] [address] [id number] [place] [address]- 3126 Nov, [facility] [place] [facility] [address] [id number] [place] [address]- 0469 Nov, [facility] [place] [facility] [address] [id number] [place] [address] 7419 Oct, [facility] [place] [facility] [address] [id number] [place] [address] 4396 Oct, [facility] [place] [facility] [address] [id number] [place] [address]- 3598 Oct, [facility] [place] [facility] [address] [id number] [place] [address]- 2886 Oct, [facility] [place] [facility] [address] [id number] [place] [address]- 0497 Oct, [facility] [place] [facility] [address] [id number] [place] [address]- 8628 Oct, [facility] [place] [facility] [address] [id number] [place] [address]- 5339 Oct, [facility] [place] [facility] [address] [id number] [place] [address]- 5845 Sep, [facility] [place] [facility] [address] [id number] [place] [address] 3612 Sep, [facility] [place] [facility] [address] [id number] [place] [address] 6[address] August, [facility] [address] [id number] [place] [address] 7904 August, [facility] [place] [facility] [address] [id number] [place] [address]- 8656 August, [facility] [address] [id number] [place] [address]- 5706 August, [facility] [place] [facility] [address] [id number] [place] [address] 2720 Jul, [facility] [address] [id number] [place] [address]- 6493 Jul, [facility] [place] [facility] [address] [id number] [place] [address]- 2419 Jul, [facility] [address] [id number] [place] [address]- 5305 Jul, [facility] [place] [facility] [address] [id number] [place] [address]- 4793 Jul, [facility] [place] [facility] [address] [id number] [place] [address]- 1875 Jul, [facility] [place] [facility] [address] [id number] [place] [address] 8199 Jul, [facility] [place] [facility] [address] [id number] [place] [address]- 4591 Jul, [facility] [place] [facility] [address] [id number] [place] [address]- 3699 Jul, [facility] [place] [facility] [address] [id number] [place] [address]- 4265 Jun, [facility] [place] [facility] [address] [id number] [place] [address]- 0989 Jun, [facility] [place] [facility] [address] [id number] [place] [address]- 5657 Jun, [facility] [place] [facility] [address] [id number] [place] [address]- 3795 14 Jun, 2011 [facility] [place] [facility] [address] [id number] [place] [address]- 6282 Jun, [facility] [place] [facility] [address] [id number] [place] [address]- 8372 Jun, [facility] [place] [facility] [address] [id number] [place] [address]- 3329 Jun, [facility] [place] [facility] [address] [id number] [place] [address]- 2632 May, [facility] [place] [facility] [address] [id number] [place] [address]- 6234 24 May, 2011 [facility] [place] [facility] [address] [id number] [place] [address]- 6076 May, [facility] [place] [facility] [address] [id number] [place] [address]- 7275 May, [facility] [place] [facility] [address] [id number] [place] [address]- 2272 May, [facility] [place] [facility] [address] [id number] [place] [address]- 8234 Apr, [facility] [place] [facility] [address] [id number] [place] [address]- 2952 Apr, [facility] [place] [facility] [address] [id number] [place] [address]- 4075 Apr, [facility] [place] [facility] [address] [id number] [place] [address]- 5427 Apr, [facility] [place] [facility] [address] [id number] [place] [address]- 9043 Apr, [facility] [place] [facility] [address] [id number] [place] [address]- 8902 Mar, [facility] [place] [facility] [address] [id number], [place] [address]- 9649 Mar, [facility] [place] [facility] [address] [id number] [place] [address]- 1870 Mar, [facility] [place] [facility] [address] [id number] [place] [address] Mar, [facility] [place] [facility] [address] [facility] [id number] [place] [address]- 1515 Mar, [facility] [place] [facility] [address] [id number] [place] [address]- 2243 Mar, [facility] [place] [facility] [address] [id number] [place] [address]- 2267 Mar, [facility] [place] [facility] [address] [id number] [place] [address]- 5640 Feb, [facility] [place] [facility] [address] [facility] [id number], [place] [address]- 0596 Feb, [facility] [place] [facility] [address] [id number] [place] [address]- 2650 Feb, [facility] [place] [facility] [address] [facility] [id number] [place] [address]- 2397 Feb, [facility] [place] [facility] [address] [facility] [id number] [place] [address]- 3300 Jan, [facility] [place] [facility] [address] [id number], [place] [address]- 6899 Jan, [facility] [place] [facility] [address] [id number], [place] [address]- 5186 Jan, [facility] [place] [facility] [address] [id number] [place] [address]- 7403 Jan, [facility] [place] [facility] [address] [facility] [id number], [place] [address]- 0569 Nov, [facility] [place] [facility] [address] [facility] [id number] [place] [address]- 6428 30 Mar, 2010 [facility] [place] [facility] [address] [id number], [place] [address] Mar, [facility] [place] [id number] [address] Mar, [facility] [id number], [place] [address]- 7612 Mar, [facility] [place] [id number], [place] [address]- 0734 Mar, [facility] [place] [id number] [address] Mar, [facility] [place] [id number], [place] [address]993 Feb, [facility] [place] [id number] [address] Feb, [facility] [place] [id number], [place] [address]- 3452 Jan, [facility] [place] [id number], [place] [address]- 0407 Jan, [facility] [place] [id number], [place] [address]- 9498 Jan, IMMUNIZATIONS No Known Immunizations SOCIAL HISTORY Never Assessed REASON FOR VISIT f/u PLAN OF CARE Activity Details Follow Up prn Reason: VITAL SIGNS MEDICATIONS Unknown Medications RESULTS No Results PROCEDURES Procedure Date Ordered Result Body Site [facility] VISIT MENTAL HEALTH ESTAB PT Mar 22, 2017 Psychotherapy, patient &/family, 30 minutes, established patient Mar 22, 2017 INSTRUCTIONS MEDICATIONS ADMINISTERED No [...] 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
--- OUTSIDE RECORDS SUMMARY | 2018-05-29 08:32 | XMS REPORT ---
Author Author NIXON MCDONALD [facility] Address [address] [place] [address] Care Team Providers Care Mammalogy Teacher Name Role Phone NIXON MCDONALD Unavailable PROBLEMS Type Condition ICD9-CM Code IBO22-PS Code Onset Dates Condition Status SNOMED Code Problem Long-term use of high-risk medication Z79.899 Active 191847514 Problem Abnormal chest CT R93.8 Active 163018484 Problem Low back pain M54.5 Active 952261856 Problem Generalized anxiety disorder F41.1 Active 93673615 Problem Dysthymic disorder F34.1 Active 01365496 Problem Coronary artery disease involving [place] coronary artery of [place] heart, angina presence unspecified I25.10 Active 2376528202883 Problem Depressed F32.9 Active 83873097 Problem Fibromyalgia M79.7 Active 327870473 Problem Hypothyroid E03.9 Active 24827162 Problem Essential (primary) hypertension I10 Active 43769690 Problem Insomnia G47.00 Active 133085948 Problem Vitamin D deficiency E55.9 Active 37288372 Problem Anemia in chronic kidney disease D63.1 Active 859488426413885 Problem Chronic kidney disease, unspecified N18.9 Active 571562515 Problem Body mass index (BMI) of 40.0-44.9 in adult Z68.41 Active 114645017 Problem Stage 3 chronic kidney disease N18.3 Active 697454607 Problem Restless leg G25.81 Active 58485548 Problem Palpitations R00.2 Active 18617432 Problem Asthma J45.909 Active 753077828 Problem Primary osteoarthritis of left knee M17.12 Active 666230625 Problem Bipolar disorder, current episode manic without psychotic features F31.10 Active 309725730 Problem Mood disorder F39 Active 10985289 Problem Degenerative tear of medial meniscus of left knee M23.204 Active 258316817 Problem History of colon polyps Z86.010 Active 120214590 Problem Asthma with acute exacerbation in adult J45.901 Active 618749217 Problem Chronic kidney disease, stage 4 (severe) N18.4 Active 238035748 Problem Functional diarrhea K59.1 Active 44649054 Problem Hypokalemia E87.6 Active 65945404 Problem Mixed stress and urge urinary incontinence N39.46 Active 752185339 Problem History of anemia Z86.2 Active 386961105 Problem Other seasonal allergic rhinitis J30.2 Active 641739361 ALLERGIES No Information ENCOUNTERS Encounter Location Date Diagnosis [place] [address] 40231[address] 1206 Sep, [place] [address] 94070- 9629 August, [place] [address] 62458- 3607 August, Generalized anxiety disorder F41.1 and Major depressive disorder, recurrent episode with anxious distress F33.9 [place] [address] 85259- 0896 August, Abnormal chest CT R93.8 [place] [address] 65326- 8718 Jul, [place] [address] 32331- 1474 Jul, Chronic kidney disease, stage 4 (severe) N18.4 [place] [address] 12795- 1409 Jul, [place] [address] 88932- 0396 Jul, Restless leg G25.81 ; Mixed stress and urge urinary incontinence N39.46 and Fibromyalgia M79.7 [place] [address] 32313- 5751 Jul, Chronic kidney disease, stage 4 (severe) N18.4 [place] [address] 75591- 0250 Jun, Orthostatic hypotension I95.1 ; Chronic kidney disease, stage 4 (severe) N18.4 ; Chest wall discomfort R07.89 and Body mass index (BMI) of 40.0-44.9 in adult Z68.41 [facility] [address] [place] [id number] [place] [address] 85494- 2043 Jun, [facility] [address] [place] [id number] [place] [address] 59993- 6760 Jun, Orthostatic hypotension I95.1 [facility] [address] [place] [id number] [place] [address] 69131- 8883 Jun, [facility] [address] [address] Jun, Orthostatic hypotension I95.1 ; Dysuria R30.0 and Acute cystitis without hematuria N30.00 [place] [address] [place] [id number] [place] [address] 96306- 3686 Jun, [facility] [address] [place] [id number] [place] [address] 80645- 9878 Jun, Chronic kidney disease, stage 4 (severe) N18.4 [place] [address] [place] [id number] [place] [address] 08170- 3385 Jun, Fibromyalgia M79.7 [facility] [address] [place] [id number] [place] [address] 82608- 8308 Jun, [facility] [address] [place] [id number] [place] [address] 96752- 5636 Jun, [facility] [address] [place] [id number] [place] [address] 39543- [address] May, Ab[address] chest [address] R93.8 and Stage 3 chronic kidney disease N18.3 [facility] [address] [place] [id number] [place] [address] 44717- 3596 May, Chronic kidney disease, stage 4 (severe) N18.4 [facility] [address] [place] [id number] [place] [address] 12057- 8484 May, Chronic kidney disease, stage 4 (severe) N18.4 [facility] [address] [place] [id number] [place] [address] 03885- [address] May, [address] R93.8 [facility] [address] [place] [id number] [place] [address] 83365- 2508 May, [facility] [address] [place] [id number] [place] [address] 35306- 6314 May, [facility] [address] [place] [id number] [place] [address] 08068- 9084 May, Generalized anxiety disorder F41.1 and Major depressive disorder, recurrent episode with anxious distress F33.9 [place] [address] [place] [id number] [place] [address] 74678- 8221 May, Mood disorder F39 [place] [address] [place] [id number] [place] [address] 75168- 2540 Apr, [facility] [address] [place] [id number] [place] [address] 96747- 7771 Apr, Infected skin lesion L08.9 and Muscle strain of right shoulder region, initial encounter S46.911A [place] [id number] [place] [address] 37633- 0860 Apr, Generalized anxiety disorder F41.1 and Major depressive disorder, recurrent episode with anxious distress F33.9 [facility] [id number] [place] [address] 29182- 0867 Apr, [facility] [address] [place] [id number] [place] [address] 63469- 3750 Apr, Recent urinary tract infection Z87.440 and Hypothyroid E03.9 [facility] [id number] [place] [address] 33903- 4447 Apr, Generalized anxiety disorder F41.1 and Major depressive disorder, recurrent episode with anxious distress F33.9 [facility] [address] [address]- 9234 Apr, Recent urinary tract infection Z87.440 [facility] [address] [place] [id number] [place] [address] 34145- 1734 28 Mar, 2017 [facility] [id number] [place] [address] 54915 -6001 Mar, Dysuria R30.0 ; Acute cystitis without hematuria N30.00 and BMI 40.0-44.9, adult Z68.41 [place] [id number] [place] [address] 86780- 3068 14 Mar, 2017 [place] [address] [place] [id number] [place] [address] 86573- 4331 Mar, [place] [id number] [place] [address] 66807- 4963 Mar, Generalized anxiety disorder F41.1 and Major depressive disorder, recurrent episode with anxious distress F33.9 [place] [id number] [place] [address] 07867- 1762 29 Feb, 2017 Conjunctivitis, bacterial H10.9 [place] [id number] [place] [address] 79453- 4970 27 Feb, 2017 [facility] [address] [address] Feb, Conjunctivitis, bacterial H10.9 [facility] [address] [address]- 0275 15 Feb, 2017 [facility] [id number] [place] [address] 30421 -7704 10 Feb, 2017 Dysuria R30.0 ; Acute cystitis N30.00 and BMI 40.0-44.9, adult Z68.41 [facility] [address] [address]- 5616 08 Feb, 2017 [facility] [id number] [place] [address] 94885- 6801 Feb, Generalized anxiety disorder F41.1 and Major depressive disorder, recurrent episode with anxious distress F33.9 [place] [id number] [place] [address] 68671- 3340 Feb, Mood disorder F39 and BMI 40.0-44.9, adult Z68.41 [place] [id number] [place] [address] 35402- 8277 Jan, [place] [id number] [place] [address] 77860- 2049 Jan, [place] [id number] [place] [address] 19614- 5127 Jan, Hypothyroid E03.9 [place] [id number] [place] [address] 00361- 0673 Jan, [place] [id number] [place] [address] 31236- 2917 Jan, Chronic kidney disease, unspecified N18.9 ; Hypokalemia E87.6 ; Essential (primary) hypertension I10 ; Fibromyalgia M79.7 ; Coronary artery disease involving [place] coronary artery of [place] heart, angina presence unspecified I25.10 ; Hypothyroid E03.9 and Encounter for immunization Z23 [place] [id number] [place] [address] 57350- 1462 Jan, Hypothyroid E03.9 [place] [address] [place] [id number] [place] [address] 50253- 4702 Jan, [place] [id number] [place] [address] 51279- 4263 Dec, Vitamin D deficiency E55.9 [place] [id number] [place] [address] 84028- 0983 Dec, Primary osteoarthritis of left knee M17.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 [place] [id number] [address]- 6559 19 Dec, 2016 Fibromyalgia M79.7 [facility] [address] [place] [id number] [place] [address] 52771- 0423 18 Dec, 2016 Mood disorder F39 [facility] [address] [place] [id number] [place] [address] 93552- 0908 13 Dec, 2016 [facility] [address] [place] [id number] [place] [address] 80142- 4502 13 Dec, 2016 Generalized anxiety disorder F41.1 and Major depressive disorder, recurrent episode with anxious distress F33.9 [facility] [address] [place] [id number] [place] [address] 84325- 2796 11 Dec, 2016 [facility] [address] [place] [id number] [place] [address] 01260- 7743 08 Dec, 2016 Streptococcal meningitis G00.2 [facility] [address] [place] [id number] [place] [address] 51409- 7639 07 Dec, 2016 Streptococcal meningitis G00.2 [facility] [id number] [place] [address] 68123- 8304 07 Dec, 2016 [facility] [address] [place] [id number] [place] [address] 45499- 3663 06 Dec, 2016 Streptococcal meningitis G00.2 [facility] [id number] [place] [address] 09085- 4557 06 Dec, 2016 [facility] [id number] [place] [address] 54453- 2540 06 Dec, 2016 Major depressive disorder, recurrent episode with anxious distress F33.9 [facility] [address] [place] [id number] [place] [address] 53906- 4341 Nov, Fever, unspecified fever cause R50.9 [facility] [id number] [place] [address] 64529- 9028 Nov, [facility] [address] [place] [id number] [place] [address] 32656- 1635 Nov, Hypothyroid E03.9 [facility] [address] [place] [id number] [place] [address] 11036- 9111 Nov, Generalized anxiety disorder F41.1 and Major depressive disorder, recurrent episode with anxious distress F33.9 [facility] [address] [place] [id number] [place] [address] 94096- 3480 Nov, [facility] [address] [place] [id number] [place] [address] [id number] Oct, Dental examination Z01.20 [facility] [address] [place] [id number] [place] [address] 11733- 7281 Oct, Generalized anxiety disorder F41.1 and Major depressive disorder, recurrent episode with anxious distress F33.9 [facility] [address] [place] [id number] [place] [address] 76451- 1227 Oct, Chronic kidney disease, stage 4 (severe) N18.4 [facility] [address] [place] [id number] [place] [address] 96855- 6259 Oct, [facility] [address] [place] [id number] [place] [address] 47729- 2345 Oct, Fibromyalgia M79.7 [facility] [address] [place] [id number] [place] [address] 90242- 9779 Oct, [facility] [address] [place] [id number] [place] [address] 34341- 4527 Oct, Generalized anxiety disorder F41.1 ; Major depressive disorder, recurrent episode with anxious distress F33.9 and Bipolar disorder, current episode manic without psychotic features F31.10 [facility] [address] [place] [id number] [place] [address] 73151- 6239 Sep, [facility] [address] [place] [id number] [place] [address] 35562- 0217 Sep, [facility] [address] [place] [id number] [place] [address] 52432- 2893 Sep, Vitamin D deficiency E55.9 [place] [address] [address]- 1839 14 Sep, 2016 Vitamin D deficiency E55.9 [place] [id number] [place] [address] 53171- 1867 Sep, [place] [address] [place] [id number] [place] [address] 78502- 5662 Sep, Chronic kidney disease, stage 4 (severe) N18.4 ; Hypothyroid E03.9 ; Restless leg G25.81 ; Fibromyalgia M79.7 ; Essential ( primary) hypertension I10 ; Vitamin D deficiency E55.9 ; Dyspepsia R10.13 ; Anemia in chronic kidney disease D63.1 ; Chronic kidney disease, unspecified N18.9 ; Coronary artery disease involving [place] coronary artery of [place] heart , angina presence unspecified I25.10 ; Screening breast examination Z12.39 and Low back pain M54.5 [place] [address] [place] [id number] [place] [address] 40737- 1061 August, Generalized anxiety disorder F41.1 and Major depressive disorder, recurrent episode with anxious distress F33.9 [place] [address] [place] [id number] [place] [address] 87144- 1965 August, Generalized anxiety disorder F41.1 and Major depressive disorder, recurrent episode with anxious distress F33.9 [place] [id number] [place] [address] 35140- 5396 August, Fibromyalgia M79.7 [place] [address] [place] [id number] [place] [address] 62453- 9308 Jul, Generalized anxiety disorder F41.1 and Major depressive disorder, recurrent episode with anxious distress F33.9 [place] [address] [place] [id number] [place] [address] 55332- 6815 Jul, Fibromyalgia M79.7 [place] [address] [place] [id number] [place] [address] 90020- 7558 Jul, Generalized anxiety disorder F41.1 [place] [id number] [place] [address] 73867- 6592 May, [place] [address] 62915- 5765 16 May, 2016 Hypothyroid E03.9 [place] [address] [place] [id number] [place] [address] 31316- 1179 May, Chronic kidney disease, stage 4 (severe) N18.4 ; Hypothyroid E03.9 ; Restless leg G25.81 ; Fibromyalgia M79.7 ; Essential ( primary) hypertension I10 ; Vitamin D deficiency E55.9 ; Dyspepsia R10.13 ; Acute non-recurrent maxillary sinusitis J01.00 ; Anemia in chronic kidney disease D63.1 ; Chronic kidney disease, unspecified N18.9 and Coronary artery disease involving [place] coronary artery of [place] heart, angina presence unspecified I25.10 [place] [address] [place] [id number] [place] [address] 17037- 0275 May, Vitamin D deficiency, unspecified E55.9 [place] [address] [place] [id number] [place] [address] 25220- 7034 May, Generalized anxiety disorder F41.1 and Major depressive disorder, recurrent episode with anxious distress F33.9 [place] [address] [place] [id number] [place] [address] 86694- 4732 Apr, Pain in right knee M25.561 and Pain in left knee M25.562 [place] [address] [place] [id number] [place] [address] 16970- 1510 Apr, [place] [address] [place] [id number] [place] [address] 46187- 0754 Apr, [place] [address] [place] [id number] [place] [address] 34040- 5608 Apr, [place] [id number] [place] [address] 61915- 0234 Mar, Generalized anxiety disorder F41.1 and Major depressive disorder, recurrent episode with anxious distress F33.9 [facility] [address] [place] [id number] [place] [address] 76232- 4884 Mar, Generalized anxiety disorder F41.1 and Major depressive disorder, recurrent episode with anxious distress F33.9 [place] [address] [place] [id number] [place] [address] 08911- 0841 Mar, [facility] [address] 42043- 1542 Mar, [place] [address] [place] [id number] [place] [address] 56107- 4264 Mar, [place] [address] 59828- 3609 Mar, Asthma J45.909 and Fibromyalgia M79.7 [place] [id number] [place] [address] 84838- 7977 Mar, Chronic kidney disease, stage 4 (severe) N18.4 ; Vitamin D deficiency E55.9 and Essential (primary) hypertension I10 [place] [address] [place] [id number] [place] [address] 13109- 0918 Feb, [place] [address] [place] [id number] [place] [address] 05969- 6617 Feb, Dysuria R30.0 ; Mixed stress and urge urinary incontinence N39.46 ; Fibromyalgia M79.7 and Chronic kidney disease, stage IV (severe) N18.4 [place] [address] [place] [id number] [place] [address] 93878- 1524 Feb, Chronic kidney disease, stage 4 (severe) N18.4 [place] [address] [place] [id number] [place] [address] 93180- 5371 Feb, Chronic kidney disease, stage 4 (severe) N18.4 [place] [address] [place] [id number] [place] [address] 04073- 3310 Feb, [place] [address] [place] [address] [place] [address]- 7976 Feb, Vitamin D deficiency, unspecified E55.9 [place] [address] 84735- 5609 Jan, [facility] [address] [place] [id number] [place] [address] 78737- 1262 Jan, [place] [address] 70198- 4521 Dec, [place] [address] 19457- 1032 Dec, Chronic kidney disease, stage 4 (severe) N18.4 [place] [address] 10480- 1945 Dec, Dysthymic disorder F34.1 and Generalized anxiety disorder F41.1 [place] [address] 94312- 0568 Dec, [place] [address] [place] [id number] [place] [address] 56597- 9463 Dec, [place] [address] [place] [id number] [place] [address] 33835- 9075 Dec, Dysthymic disorder F34.1 and Generalized anxiety disorder F41.1 [place] [address] [place] [id number] [place] [address] 76050- 6888 Dec, Dysuria R30.0 ; Chronic kidney disease, stage 4 (severe) N18.4 ; Hypertension I10 ; Dyspepsia R10.13 ; Yeast dermatitis B37.2 ; Palpitations R00.2 ; Hypothyroid E03.9 ; Functional diarrhea K59.1 and Other seasonal allergic rhinitis J30.2 [facility] [address] [place] [id number] [place] [address] 37885 -2330 Dec, [facility] [address] [place] [id number] [place] [address] 57946 -6616 Nov, Dysuria R30.0 and Stress incontinence N39.3 [place] [address] [place] [id number] [place] [address] 03236- 2834 Nov, [place] [address] [place] [id number] [place] [address] 61219- 6883 Nov, [place] [address] [place] [id number] [place] [address] 95808- 9205 Nov, Osteoarthritis of knees, bilateral M17.0 [place] [address] [place] [id number] [place] [address] 86763- 7463 Nov, Dysthymic disorder F34.1 and Generalized anxiety disorder F41.1 [place] [address] 99619- 7368 Nov, [place] [address] 37279- 0317 Nov, [place] [address] 84786- 8177 Nov, Urgency of urination R39.15 [place] [address] 64667- 2325 Nov, [place] [address] [place] [id number] [place] [address] 22184- 2799 Nov, Chronic kidney disease, stage 4 (severe) N18.4 [place] [address] [place] [id number] [place] [address] 98268- 5979 Oct, Hypertension I10 ; Coronary artery disease involving [place] coronary artery of [place] heart, angina presence unspecified I25.10 ; Palpitations R00.2 ; Hypothyroid E03.9 ; Right foot pain M79.671 ; Functional diarrhea K59.1 and Other seasonal allergic rhinitis J30.2 [place] [address] [place] [id number] [place] [address] 65938- 1052 Oct, Dysthymic disorder F34.1 and Generalized anxiety disorder F41.1 [place] [address] [place] [address]- 1812 Sep, [facility] [id number] [place] [address] 24395- 1764 Sep, [facility] [id number] [place] [address] 13596- 5305 Sep, [facility] [id number] [place] [address] 44631- 7413 Sep, [facility] [id number] [place] [address] 40035- 7367 Sep, [place] [address] [place] [id number] [place] [address] 28717- 3322 Sep, Dysthymic disorder F34.1 and Generalized anxiety disorder F41.1 [place] [address] [place] [id number] [place] [address] 13936- 9924 16 Sep, 2015 Asthma with acute exacerbation in adult J45.901 ; Dysuria R30.0 ; Chronic kidney disease, stage 4 (severe) N18.4 and History of anemia Z86.2 [place] [address] [place] [address] 41516- 3534 Sep, Generalized anxiety disorder F41.1 and Dysthymic disorder F34.1 [place] [address] [place] [address] 66779- 0573 August, Screening breast examination Z12.39 and Acute recurrent maxillary sinusitis J01.01 [place] [id number] [place] [address] 41888- 5972 August, Osteoarthritis of knees, bilateral M17.0 [place] [id number] [place] [address] 38505- 4132 August, Chronic kidney disease, stage 4 (severe) N18.4 ; Acute non- recurrent maxillary sinusitis J01.00 ; Urinary problem R39.89 ; Bowel habit changes R19.4 ; Functional diarrhea K59.1 and History of colon polyps Z86.010 [place] [address] [address]- 4883 29 Jul, 2015 Dysthymic disorder F34.1 and Generalized anxiety disorder F41.1 [facility] [id number] [place] [phone] [phone] Jul, [facility] [id number] [place] [id number] Jul, Dysthymic disorder F34.1 ; Generalized anxiety disorder F41.1 and FPC use of drug Z79.899 [facility] [id number] [place] [id number] Jul, [facility] [id number] [place] [phone] 16 Jun, 2015 [facility] [id number] [place] [phone] Jun, [facility] [id number] [place] [address] [phone] [id number] May, [facility] [id number] [place] [phone] May, Dysthymic disorder F34.1 and Generalized anxiety disorder F41.1 [facility] [id number] [place] [address] 60137- 1027 Apr, Kidney disease N28.9 [facility] [id number] [place] [address] 63961- 1701 Apr, Generalized anxiety disorder F41.1 and Dysthymic disorder F34.1 [facility] [id number] [place] [address] 53271- 0143 Apr, Chronic kidney disease, stage 4 (severe) N18.4 [facility] [address] [address] 8069 Apr, Generalized anxiety disorder F41.1 ; Major depression, recurrent F33.9 and Sleep disturbance G47.9 [facility] [facility] [id number] [place] [address] 14317- 0709 Mar, Generalized anxiety disorder F41.1 and Dysthymic disorder F34.1 [facility] [id number] [place] [address] 59425- 8622 Mar, Generalized anxiety disorder F41.1 ; Dysthymic disorder F34.1 and Insomnia G47.00 [facility] [id number] [place] [address] 81307- 2669 Mar, [facility] [id number] [place] [address] 64195- 5772 Mar, [facility] [id number] [place] [address] 80690- 6696 Mar, Osteoarthritis of knees, bilateral M17.0 [place] [id number] [place] [address] 01005- 4738 Mar, Hypertension I10 ; Hypothyroid E03.9 ; Dysthymic disorder F34.1 ; Chronic kidney disease, stage 4 (severe) N18.4 and Nausea & vomiting R11.2 [facility] [id number] [place] [address] 30391- 3640 Mar, Generalized anxiety disorder F41.1 ; Dysthymic disorder F34.1 and Insomnia G47.00 [place] [facility] [id number] [place] [address] 05990- 0247 Mar, Dehydration E86.0 ; Chronic kidney disease, stage 4 (severe ) N18.4 and Nausea & vomiting R11.2 [facility] [id number] [place] [address] 27250 -1208 Mar, Gastroenteritis K52.9 [facility] [id number] [place] [address] 18154- 2398 Mar, [facility] [id number] [place] [address] 74487- 7469 Mar, [facility] [id number] [place] [address] 59740- 2202 Feb, Dysthymic disorder F34.1 and Generalized anxiety disorder F41.[address] 00729- 0180 Jan, UTI (urinary tract infection) N39.0 ; Asthma J45.909 ; Coronary artery disease involving [place] coronary artery of [place] heart, angina presence unspecified I25.10 ; Hypertension I10 ; Hypothyroid E03.9 ; Vitamin D deficiency E55.9 ; Insomnia G47.00 ; Palpitations R00.2 ; Depressed F32.9 ; Restless leg G25.81 and Anxiety F41.[address] 89399- 7399 Jan, Dysthymic disorder F34.1 and Generalized anxiety disorder F41.[address] 65035- 7293 Jan, [address] 16147- 9897 Dec, [address] 01939- 5707 Dec, Alkalosis 276.3 ; Chronic kidney disease, 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.4 ; Hyperpotassemia 276.7 ; Secondary hyperparathyroidism, renal 588.81 ; Proteinuria 791.0 ; Unspecified vitamin D deficiency 268.9 ; Anemia in chronic kidney disease 285.21 ; Other and unspecified hyperlipidemia 272.4 ; Hypertension, essential, benign 401.1 and Chronic kidney disease (CKD), stage III (moderate) 585.[address] 47702- 6210 Dec, [address] 24497- 3211 Dec, Depressive disorder, not elsewhere classified 311 and Generalized anxiety disorder 300.[address] 86300- 4777 Dec, [facility] [id number] [place] [address] 75118- 4897 Dec, [facility] [id number] [place] [address] 22646- 9378 Nov, Depressive disorder, not elsewhere classified 311 and Generalized anxiety disorder 300.02 [facility] [id number] [place] [address] 56004- 1881 Nov, Arthritis of both knees 716.96 [place] [id number] [place] [address] 98481- 5612 Nov, PAF (paroxysmal atrial fibrillation) 427.31 ; CAD (coronary artery disease) 414.00 ; Chest pain 786.50 and Chronic kidney disease (CKD) stage G4/A1, severely decreased glomerular filtration rate (GFR) between 15-29 mL/min/1.73 square meter and albuminuria creatinine ratio less than 30 mg/g 585.4 [place] [id number] [place] [address] 44805- 3159 Oct, Coronary atherosclerosis of unspecified type of vessel, [place] or graft 414.00 ; Chronic kidney disease, 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.4 ; Hypertension 401.9 and Edema 782.3 [place] [facility] [id number] [place] [address] 26170- 0088 Oct, Depressive disorder, not elsewhere classified 311 and Generalized anxiety disorder 300.02 [facility] [id number] [place] [address] 57700- 5378 Oct, Depressive disorder, not elsewhere classified 311 and Generalized anxiety disorder 300.02 [facility] [id number] [place] [address] 27645- 1084 Oct, [facility] [id number] [place] [address] 31745- 5056 Oct, [facility] [id number] [place] [address] 24695- 0588 Sep, [facility] [id number] [place] [address] 91480- 5919 Sep, Chronic kidney disease, 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.4 [facility] [id number] [place] [address] 68341- 3168 Sep, [facility] [id number] [place] [address] 31019- 9038 Sep, Coronary atherosclerosis of unspecified type of vessel, [place] or graft 414.00 ; Hypertension 401.9 ; Edema 782.3 and Hypothyroidism 244.9 [facility] [id number] [place] [address] 30003- 4487 Sep, Coronary atherosclerosis of unspecified type of vessel, [place] or graft 414.00 ; Hypertension 401.9 ; Fibromyalgia 729.1 ; Edema 782.3 ; Hypothyroidism 244.9 and Anemia 285.9 [place] [id number] [place] [address] 69743- 9779 Sep, Anxiety disorder, unspecified 300.00 and Depressive disorder , not elsewhere classified 311 [facility] [id number] [place] [address] 12894- 6690 Sep, [facility] [id number] [place] [address] 67461- 3057 August, Generalized anxiety disorder 300.02 [facility] [id number] [place] [address] 70831- 6978 August, Closed fracture of lateral malleolus 824.2 [facility] [id number] [place] [address] 22331- 1691 Jul, [facility] [id number] [place] [address] 31324- 1263 Jul, [facility] [id number] [place] [address] 07699- 1696 Jun, [facility] [id number] [place] [address] 42102- 7930 Jun, [facility] [place] [facility] [address] [id number] [place] [address]- 3579 13 Jun, 2014 [facility] [place] [facility] [address] [id number] [place] [address]- 6187 13 Jun, 2014 [facility] [place] [facility] [address] [id number] [place] [address]- 7241 Jun, 2014 [facility] [place] [facility] [address] [id number] [place] [address]- 3416 02 Jun, 2014 [facility] [place] [facility] [address] [id number] [place] [address]- 3308 May, 2014 [facility] [place] [facility] [address] [id number] [place] [address]- 4513 19 May, 2014 [facility] [place] [facility] [address] [facility] [id number] [place] [address]- 6854 18 May, 2014 [facility] [place] [facility] [address] [id number] [place] [address]- 3321 18 May, 2014 [facility] [place] [facility] [address] [id number] [place] [address]- 0816 16 May, 2014 [facility] [place] [facility] [address] [facility] [id number] [place] [address]- 1651 16 May, 2014 [facility] [place] [facility] [address] [facility] [id number] [place] [address]- 7387 13 May, 2014 [facility] [place] [facility] [address] [id number] [place] [address]- 0130 13 May, 2014 [facility] [place] [facility] [address] [id number] [place] [address]- 2545 10 May, 2014 [facility] [place] [facility] [address] [id number] [place] [address]- 0625 10 May, 2014 [facility] [place] [facility] [address] [id number] [place] [address]- 9486 Apr, [facility] [place] [facility] [address] [id number] [place] [address]- 5736 Apr, [facility] [place] [facility] [address] [id number] [place] [address]- 7447 Mar, [facility] [place] [facility] [address] [id number] [place] [address]- 4237 Mar, [facility] [place] [facility] [address] [id number] [place] [address]- 7624 Mar, [facility] [place] [facility] [address] [id number] [place] [address]- 4441 Mar, [facility] [place] [facility] [address] [id number] [place] [address]- 7651 Mar, [facility] [place] [facility] [address] [id number] [place] [address]- 3949 Mar, [facility] [place] [facility] [address] [id number] [place] [address]- 3285 Mar, [facility] [place] [facility] [address] [id number] [place] [address]- 6339 Feb, [facility] [place] [facility] [address] [id number] [place] [address]- 7800 Feb, [facility] [place] [facility] [address] [id number] [place] [address]- 8808 Feb, [facility] [place] [facility] [address] [id number] [place] [address]- 5463 Jan, [facility] [place] [facility] [address] [id number] [address]- 8722 Jan, [facility] [place] [facility] [address] [id number] [place] [address]- 6396 Jan, [facility] [place] [facility] [address] [id number] [place] [address]- 7154 Jan, [facility] [place] [facility] [address] [id number] [address]- 6370 Jan, [facility] [place] [facility] [address] [id number] [place] [address]- 7829 Jan, [facility] [place] [facility] [address] [id number] [place] [address]- 9627 Jan, [facility] [place] [facility] [address] [id number] [place] [address]- 3677 Jan, [facility] [place] [facility] [address] [id number] [place] [address]- 8573 Jan, [facility] [place] [facility] [address] [id number] [place] [address]- 5194 Jan, [facility] [place] [facility] [address] [id number] [place] [address]- 5702 Nov, [facility] [place] [facility] [address] [id number] [place] [address]- 0037 Nov, [facility] [place] [facility] [address] [id number] [place] [address]- 5866 Nov, [facility] [place] [facility] [address] [id number] [place] [address]- 9959 Oct, [facility] [place] [facility] [address] [id number] [place] [address]- 8038 Oct, [facility] [place] [facility] [address] [id number] [place] [address]- 7021 Oct, [facility] [place] [facility] [address] [id number] [place] [address]- 0230 Oct, [facility] [place] [facility] [address] [id number] [place] [address]- 6708 Oct, [facility] [place] [facility] [address] [id number] [place] [address]- 5579 Oct, [facility] [place] [facility] [address] [id number] [place] [address]- 2444 Oct, [facility] [place] [facility] [address] [id number] [place] [address]- 6118 Oct, [facility] [place] [facility] [address] [id number] [place] [address]- 6373 Oct, [facility] [place] [facility] [address] [id number] [place] [address]- 1718 Sep, [facility] [place] [facility] [address] [id number] [place] [address]- 4224 Sep, [facility] [place] [facility] [address] [id number] [place] [address]- 6426 Sep, [facility] [place] [facility] [address] [id number] [place] [address]- 8186 Sep, [facility] [place] [facility] [address] [id number] [place] [address]- 4994 Sep, [facility] [place] [facility] [address] [id number] [place] [address]- 9749 Sep, [facility] [place] [facility] [address] [id number] [place] [address]- 9886 Sep, [facility] [place] [facility] [address] [id number] [place] [address]- 1628 Sep, [facility] [place] [facility] [address] [id number] [place] [address]- 7053 Sep, [facility] [place] [facility] [address] [id number], [place] [address]- 3962 August, [facility] [place] [facility] [address] [id number], [place] [address]- 6502 August, [facility] [place] [facility] [address] [id number] [place] [address]- 3349 August, [facility] [place] [facility] [address] [id number] [place] [address]- 2388 August, [facility] [place] [facility] [address] [id number] [place] [address]- 3295 August, [facility] [place] [facility] [address] [id number] [place] [address]- 5926 August, [facility] [place] [facility] [address] [id number] [place] [address]- 7288 Jul, [facility] [place] [facility] [address] [id number] [place] [address]- 4556 Jul, [facility] [place] [facility] [address] [id number] [place] [address]- 7272 Jul, [facility] [place] [facility] [address] [id number] [place] [address]- 9933 Jul, [facility] [place] [facility] [address] [id number] [place] [address]- 0463 Jul, [facility] [place] [facility] [address] [id number] [place] [address]- 9251 Jul, [facility] [place] [facility] [address] [id number] [place] [address]- 8071 Jun, [facility] [place] [facility] [address] [id number] [place] [address]- 6495 Jun, [facility] [place] [facility] [address] [id number] [place] [address]- 8330 May, [facility] [place] [facility] [address] [id number] [place] [address]- 5931 May, [facility] [place] [facility] [address] [id number] [place] [address]- 6848 May, [facility] [place] [facility] [address] [id number] [place] [address]- 1330 May, [facility] [place] [facility] [address] [id number] [place] [address]- 3818 Apr, [facility] [place] [facility] [address] [id number] [place] [address]- 1799 Apr, [facility] [place] [facility] [address] [id number] [place] [address]- 0119 Mar, [facility] [place] [facility] [address] [id number] [place] [address]- 6869 18 Mar, 2013 [facility] [place] [facility] [address] [id number] [place] [address]- 5066 17 Mar, 2013 [facility] [place] [facility] [address] [id number] [place] 7642 17 Mar, 2013 [facility] [place] [facility] [address] [id number] [place] [address]- 6626 05 Mar, 2013 [facility] [place] [facility] [address] [id number] [place] [address]- 1609 05 Mar, 2013 [facility] [place] [facility] [address] [id number] [place] [address]- 5397 Feb, [facility] [place] [facility] [address] [id number] [place] [address]- 3377 Feb, [facility] [place] [facility] [address] [id number] [place] [address]- 5584 14 Feb, 2013 [facility] [place] [facility] [address] [id number] [place] [address]- 3173 Feb, [facility] [place] [facility] [address] [id number], [place] [address]- 6475 Feb, [facility] [place] [facility] [address] [id number], [place] [address]- 9184 Feb, [facility] [place] [facility] [address] [id number] [address]- 9672 24 Jan, 2013 [facility] [place] [facility] [address] [id number] [place] [address]- 0099 24 Jan, 2013 [facility] [place] [facility] [address] [id number] [place] [address]- 7469 10 Jan, 2013 [facility] [place] [facility] [address] [id number] 3818 10 Jan, 2013 [facility] [place] [facility] [address] [id number] [place] [address]- 5941 Jan, [facility] [address] [id number] [place] [address]- 4085 Jan, [facility] [place] [facility] [address] [id number] [place] [address]- 2859 Dec, [facility] [place] [facility] [address] [id number] [place] [address]- 5403 Dec, [facility] [place] [facility] [address] [id number] [place] [address]- 7275 Nov, [facility] [place] [facility] [address] [id number] [place] [address]- 7561 Nov, [facility] [place] [facility] [address] [id number] [place] [address]- 3321 Oct, [facility] [address] [id number] [place] [address]- 2861 Oct, [facility] [place] [facility] [address] [id number] [place] [address]- 6549 Oct, [facility] [place] [facility] [address] [id number] [place] [address]- 7867 Oct, [facility] [place] [facility] [address] [id number] [place] [address]- 6678 Oct, [facility] [place] [facility] [address] [id number] [place] [address]- 3451 Oct, [facility] [place] [facility] [address] [id number] [place] [address]- 3414 Sep, [facility] [place] [facility] [address] [id number] [place] [address]- 7643 Sep, [facility] [place] [facility] [address] [id number] [place] [address]- 4337 Sep, [facility] [place] [facility] [address] [id number] [place] [address]- 2971 Sep, [facility] [place] [facility] [address] [id number] [place] [address]- 8829 August, [facility] [address] [id number] [place] 2949 August, [facility] [address] [id number] [place] [address]- 1688 August, [facility] [address] [id number] [place] [address]- 9870 August, [facility] [address] [id number] [place] [address]- 6116 August, [facility] [address] [id number] [place] [address]- 1144 Jul, [facility] [address] [id number] [place] [address]- 6298 Jul, [facility] [address] [id number] [place] [address]- 9943 Jul, [facility] [address] [id number] [place] [address]- 4222 Jul, [facility] [address] [id number] [place] [address]- 7221 Jul, [facility] [address] [id number] [place] [address]- 2164 Jul, [facility] [address] [id number] [place] [address]- 9970 Jul, [facility] [address] [id number] [place] [address]- 0578 Jul, [facility] [address] [id number] [place] [address]- 3761 Jul, [facility] [address] [id number] [place] [address]- 7400 Jul, [facility] [place] [address] [facility] [id number] [id number] Jun, [facility] [address] [id number] [place] [address]- 7239 Jun, [facility] [address] [id number] [place] [address]- 1329 Jun, [facility] [address] [id number] [place] [address]- 0665 Jun, [facility] [address] [id number] [place] [address]- 1193 Jun, [facility] [address] [id number] [place] [address]- 3189 May, [facility] [address] [id number] [place] [address]- 4793 May, [facility] [address] [id number] [place] [address]- 6694 May, [facility] [address] [id number] [place] [address]- 5797 Apr, [facility] [address] [id number] [place] [address]- 8256 Apr, [facility] [address] [id number] [place] [address] Apr, [facility] [address] [id number] [place] [address] Apr, [facility] [place] [facility] [address] [id number] [address] Apr, [facility] [place] [facility] [address] [id number] [place] [address] Apr, [facility] [address] [id number] [place] [address] Mar, [facility] [place] [facility] [address] [id number] [place] [address] Mar, [facility] [address] [id number] [place] [address] 18 Mar, 2012 [facility] [place] [facility] [address] [id number] [place] [address] Mar, [facility] [place] [facility] [address] [id number] [place] [address] Feb, [facility] [place] [facility] [address] [id number] [place] [address] Feb, [facility] [place] [facility] [address] [id number] [place] [address]- [address] Feb, [facility] [place] [facility] [address] [id number] [place] [address] Feb, [facility] [place] [facility] [address] [id number] [place] [address] Feb, [facility] [place] [facility] [address] [id number] [place] [address] Feb, [facility] [place] [facility] [address] [id number] [place] [address] 48[address] Feb, [facility] [place] [facility] [address] [id number] [place] [address] 89[address] Feb, [facility] [place] [facility] [address] [facility] [id number] [place] [address] Feb, [facility] [place] [facility] [address] [id number] [place] [address] Feb, [facility] [place] [facility] [address] [id number], [place] [address] Feb, [facility] [place] [facility] [address] [id number] [place] [address] Feb, [facility] [place] [facility] [address] [id number] [place] [address] 39[address] Feb, [facility] [place] [facility] [address] [id number], [place] [address] Feb, [facility] [place] [facility] [address] [id number] [place] [address] Feb, [facility] [place] [facility] [address] [id number] [place] [address]- [address] Feb, [facility] [place] [facility] [address] [id number] [place] [address]- 15[address] Jan, [facility] [place] [facility] [address] [id number] [place] [address] Jan, [facility] [place] [facility] [address] [id number] [place] [address]- [address] Jan, [facility] [place] [facility] [address] [id number] [place] [address] Jan, [facility] [place] [facility] [address] [id number] [place] [address] 9460 Jan, [facility] [place] [facility] [address] [id number] [place] [address] Jan, [facility] [place] [facility] [address] [id number] [place] [address] Jan, [facility] [place] [facility] [address] [id number] [place] [address] 4697 Jan, [facility] [place] [facility] [address] [id number] [place] [address] 73[address] Jan, [facility] [place] [facility] [address] [id number], [place] [address] Jan, [facility] [place] [facility] [address] [id number] [place] [address] 15 Jan, 2012 [facility] [place] [facility] [address] [id number] [place] [address] Jan, [facility] [place] [facility] [address] [id number] [place] [address]- 1695 Dec, [facility] [place] [facility] [address] [id number], [place] [address] 26 Sep, 2011 [facility] [place] [facility] [address] [id number] [place] [address] 24 Sep, 2011 [facility] [place] [facility] [address] [id number] [place] [address] 23 Sep, 2011 [facility] [place] [facility] [address] [id number] [place] [address] 2546 22 Sep, 2011 [facility] [place] [facility] [address] [id number] [place] [address] 21 Sep, 2011 [facility] [place] [facility] [address] [id number] [place] [address] 20 Sep, 2011 [facility] [place] [facility] [address] [id number] [place] [address]- [address]843 20 Sep, 2011 [facility] [place] [facility] [address] [id number] [place] [address] 07 Sep, 2011 [facility] [place] [facility] [address] [id number] [place] [address] 06 Sep, 2011 [facility] [place] [facility] [address] [id number] [place] [address]- [address] 06 Sep, 2011 [facility] [place] [facility] [address] [id number] [place] [address]- [address] 05 Dec, 2011 [facility] [place] [facility] [address] [id number] [place] [address] 23 Nov, 2011 [facility] [place] [facility] [address] [id number] [place] [address]199 17 Nov, 2011 [facility] [place] [facility] [address] [id number] [place] [address]- 4675 13 Nov, 2011 [facility] [place] [facility] [address] [id number] [place] [address]- 1547 10 Nov, 2011 [facility] [place] [facility] [address] [id number] [place] [address] 08 Nov, 2011 [facility] [place] [facility] [address] [id number] [place] [address] Nov, [facility] [address] [id number] [place] [address] Nov, [facility] [address] [id number] [place] [address] Nov, [facility] [address] [id number] [place] [address] Oct, [facility] [address] [id number] [place] [address] Oct, [facility] [address] [id number] [place] [address] Oct, [facility] [address] [id number] [place] [address] Oct, [facility] [address] [id number] [place] [address] Oct, [facility] [address] [id number] [place] [address] Oct, [facility] [address] [id number] [place] [address] Oct, [facility] [address] [id number] [place] [address] Sep, [facility] [place] [facility] [address] [id number] [place] [address] Sep, [facility] [address] [id number] [place] [address] August, [facility] [place] [facility] [address] [id number] [place] [address] August, [facility] [place] [facility] [address] [id number] [place] [address] August, [facility] [address] [id number] [place] [address] August, [facility] [address] [id number] [place] [address] Jul, [facility] [place] [facility] [address] [id number] [place] [address] Jul, [facility] [place] [facility] [address] [id number] [place] [address] Jul, [facility] [place] [facility] [address] [id number] [place] [address] Jul, [facility] [place] [facility] [address] [id number] [place] [address] Jul, [facility] [place] [facility] [address] [id number] [place] [address] Jul, [facility] [place] [facility] [address] [id number] [place] [address] Jul, [facility] [place] [facility] [address] [id number] [place] [address] Jul, [facility] [place] [facility] [address] [id number] [place] [address] Jul, [facility] [place] [facility] [address] [id number] [place] [address] Jun, [facility] [place] [facility] [address] [id number] [place] [address] 19 Jun, 2011 [facility] [place] [facility] [address] [id number] [address] 15 Jun, 2011 [facility] [place] [facility] [address] [id number] [place] [address] 14 Jun, 2011 [facility] [place] [facility] [address] [id number] [place] [address] 12 Jun, 2011 [facility] [place] [facility] [address] [id number][place] [address] 09 Jun, 2011 [facility] [place] [facility] [address] [id number], [place] [address] Jun, [facility] [address] [id number] [place] [address] May, [facility] [place] [facility] [address] [id number] [place] [address] May, [facility] [place] [facility] [address] [id number] [place] [address] May, [facility] [place] [facility] [address] [id number] [place] [address]26 May, [facility] [place] [facility] [address] [id number] [place] [address] May, [facility] [place] [facility] [address] [id number] [place] [address] Apr, [facility] [address] [id number] [place] [address] Apr, [facility] [address] [id number] [place] [address] Apr, [facility] [place] [facility] [address] [id number] [place] [address] Apr, [facility] [address] [id number] [place] [address] Apr, [facility] [address] [id number] [place] [address] 30 Mar, 2011 [facility] [place] [facility] [address] [id number] [place] [address] Mar, [facility] [place] [facility] [address] [id number] [place] [address] 25[address] Mar, [facility] [place] [facility] [address] [id number] [place] [address] Mar, [facility] [place] [facility] [address] [id number] [place] [address] Mar, [facility] [place] [facility] [address] [id number] [place] [address] Mar, [facility] [place] [facility] [address] [id number] [place] [address] Mar, [facility] [place] [facility] [address] [id number] [place] [address] Feb, [facility] [place] [facility] [address] [id number] [place] [address] Feb, [facility] [place] [facility] [address] [id number] [place] [address] Feb, [facility] [place] [facility] [address] [id number] [place] [address] Feb, [facility] [place] [facility] [address] [id number] [place] [address] Jan, [facility] [place] [facility] [address] [id number] [place] [address] Jan, [facility] [place] [facility] [address] [id number] [place] [address] 112[address] Jan, [facility] [place] [facility] [address] [id number] [place] [address] Jan, [facility] [place] [facility] [address] [id number] [place] [address] Nov, [facility] [place] [facility] [address] [id number] [place] [address] Mar, [facility] [place] [facility] [address] [id number] [place] [address] Mar, [facility] [place] [facility] [address] [id number] [place] [address] Mar, [facility] [place] [facility] [address] [id number] [place] [address] Mar, [facility] [place] [facility] [address] [id number], [place] [address] Mar, [facility] [address] [facility] [id number], [place] [address] Mar, [facility] [address] [facility] [id number], [place] [address] Feb, [facility] [address] [facility] [id number], [place] [address]- [address] Feb, [facility] [address] [facility] [id number], [place] [address] 2546 Jan, [facility] [address] [facility] [id number], [place] [address] Jan, [facility] [address] [facility] [id number], [place] [address] Jan, IMMUNIZATIONS No Known Immunizations SOCIAL HISTORY Never Assessed REASON FOR VISIT left knee injection (last seen 11/2015) Consult Nixon Mcdonald;Judith RT(R) PLAN OF CARE Activity Details Follow Up prn Reason: VITAL SIGNS Height 63 in 2017-01-11 Blood pressure systolic 126 mmHg 2017-01-11 Blood pressure diastolic 84 mmHg 2017-01-11 MEDICATIONS Unknown Medications RESULTS No Results PROCEDURES Procedure Date Ordered Result Body Site DRAIN/INJECT, JOINT/BURSA Jan 11, 2017 DEPO MEDROL 80 MG/ML Jan 11, 2017 INSTRUCTIONS MEDICATIONS ADMINISTERED No Known Medications [...] & 2007 Surgical History Bladder surgery [facility] 03/2016 Hospitalization History Surgeries Only Hospitalization History 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
--- OUTSIDE RECORDS SUMMARY | 2018-05-29 08:33 | XMS REPORT ---
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, angina presence unspecified I25.10 Active 8460929921611 Problem Hypothyroid E03.9 Active 56795571 Problem Insomnia G47.00 Active 855337859 Problem Vitamin D deficiency E55.9 Active 58648625 Problem Asthma J45.909 Active 505493679 Problem Chronic kidney disease, unspecified N18.9 Active 112057342 Problem Palpitations R00.2 Active 73785292 Problem Anemia in chronic kidney disease D63.1 Active 051468774701010 Problem Primary osteoarthritis of left knee M17.12 Active 666087840 Problem Bipolar disorder, current episode manic without psychotic features F31.10 Active 699106598 Problem Restless leg syndrome G25.81 Active 85237852 Problem Seasonal allergic rhinitis due to pollen J30.1 Active 51692304 Problem Functional diarrhea K59.1 Active 42708491 Problem Chronic kidney disease, stage 4 (severe) N18.4 Active 130593227 Problem Restless leg G25.81 Active 58154895 Problem Mood disorder F39 Active 93294770 Problem Degenerative tear of medial meniscus of left knee M23.204 Active 234369843 Problem Body mass index (BMI) of 40.0-44.9 in adult Z68.41 Active 137147220 Problem Stage 3 chronic kidney disease N18.3 Active 763905064 Problem Asthma with acute exacerbation in adult J45.901 Active 311960432 Problem Other seasonal allergic rhinitis J30.2 Active 275468206 Problem History of colon polyps Z86.010 Active 051874165 Problem History of anemia Z86.2 Active 364978392 Problem Fibromyalgia M79.7 Active 350753973 Problem Essential (primary) hypertension I10 Active 79005466 Problem Hypokalemia E87.6 Active 07242880 Problem Mixed stress and urge urinary incontinence N39.46 Active 462782853 ALLERGIES No Information ENCOUNTERS Encounter Location Date Diagnosis [place] [address] [address] Oct, [place] [address] 88314- 3506 Sep, Seasonal allergic rhinitis due to pollen J30.1 ; Screening for breast cancer Z12.31 ; Chest pain at rest R07.9 ; Restless leg syndrome G25.81 ; Essential (primary) hypertension I10 and Depressed F32.9 [place] [address] [place] [id number] [place] [address] 51684- 9478 August, Fibromyalgia M79.7 [place] [address] 47241- 0844 August, [place] [address] [place] [id number] [place] [address] 24518- 7450 August, [place] [address] [place] [id number] [place] [address] 09987- 1500 August, Abnormal chest CT R93.8 [place] [address] 02417- 5840 August, Generalized anxiety disorder F41.1 and Major depressive disorder, recurrent episode with anxious distress F33.9 [place] [address] [place] [id number] [place] [address] 31187- [address]379 August, Ab[address] chest [address] R93.8 [place] [address] 07986- 5522 Jul, [facility] [address] [place] [id number] [address] Jul, Chronic kidney disease, stage 4 (severe) N18.4 [facility] [address] [place] [id number] [place] [address] 58197- 7824 Jul, [facility] [address] [place] [id number] [place] [address] 57949- 6602 Jul, Restless leg G25.81 ; Mixed stress and urge urinary incontinence N39.46 and Fibromyalgia M79.7 [place] [address] [place] [id number] [place] [address] 42870- 8830 Jul, Chronic kidney disease, stage 4 (severe) N18.4 [facility] [address] [place] [id number] [place] [address] 08436- 2034 Jun, Orthostatic hypotension I95.1 ; Chronic kidney disease, stage 4 (severe) N18.4 ; Chest wall discomfort R07.89 and Body mass index (BMI) of 40.0-44.9 in adult Z68.41 [place] [address] [place] [id number] [place] [address] 40640- 9559 Jun, [facility] [address] [place] [id number] [place] [address] 06196- 2364 Jun, Orthostatic hypotension I95.1 [facility] [address] [place] [id number] [place] [address] 70998- 2760 Jun, [facility] [id number] [place] [address] 40422 -0312 Jun, Orthostatic hypotension I95.1 ; Dysuria R30.0 and Acute cystitis without hematuria N30.00 [facility] [address] [place] [id number] [address] 4[address] Jun, [facility] [address] [place] [id number] [place] [address] 02453- 7946 Jun, Chronic kidney disease, stage 4 (severe) N18.4 [facility] [address] [place] [id number] [place] [address] 25824- 7393 Jun, Fibromyalgia M79.7 [facility] [address] [place] [id number] [place] [address] 02196- 5030 Jun, [facility] [address] [place] [id number] [place] [address] 40580- 0609 Jun, [facility] [address] [place] [id number] [place] [address] 25325- [address] May, [address] R93.8 and Stage 3 chronic kidney disease N18.3 [facility] [address] [place] [id number] [place] [address] 55562- 9232 May, Chronic kidney disease, stage 4 (severe) N18.4 [facility] [address] [place] [id number] [place] [address] 73179- 2854 May, Chronic kidney disease, stage 4 (severe) N18.4 [facility] [address] [place] [id number] [place] [address] 12642- [address] May, [address] R93.8 [facility] [address] [place] [id number] [place] [address] 18303- 9349 May, [facility] [address] [place] [id number] [place] [address] 57657- 8819 May, [facility] [address] [place] [id number] [place] [address] 71073- 3905 May, Generalized anxiety disorder F41.1 and Major depressive disorder, recurrent episode with anxious distress F33.9 [facility] [address] [place] [id number] [place] [address] 76745- 0512 May, Mood disorder F39 [facility] [address] [place] [id number] [place] [address] 22332- 3721 Apr, [facility] [address] [place] [id number] [place] [address] 39036- 9796 Apr, Infected skin lesion L08.9 and Muscle strain of right shoulder region, initial encounter S46.911A [place] [address] [place] [id number] [place] [address] 88198- 0258 Apr, Generalized anxiety disorder F41.1 and Major depressive disorder, recurrent episode with anxious distress F33.9 [place] [address] [place] [id number] [place] [address] 73169- 0568 Apr, [place] [address] [place] [id number] [place] [address] 26992- 8734 Apr, Recent urinary tract infection Z87.440 and Hypothyroid E03.9 [place] [address] [place] [id number] [place] [address] 94904- 6296 Apr, Generalized anxiety disorder F41.1 and Major depressive disorder, recurrent episode with anxious distress F33.9 [place] [address] [place] [id number] [place] [address] 06406- 6598 Apr, Recent urinary tract infection Z87.440 [place] [id number] [place] [address] 12007- 3444 Mar, [facility] [id number] [place] [address] 14427 -6467 Mar, Dysuria R30.0 ; Acute cystitis without hematuria N30.00 and BMI 40.0-44.9, adult Z68.41 [place] [id number] [place] [address] 85454- 9591 Mar, [facility] [id number] [place] [address] 34625- 7383 Mar, [place] [address] [place] [id number] [place] [address] 50041- 0210 Mar, Generalized anxiety disorder F41.1 and Major depressive disorder, recurrent episode with anxious distress F33.9 [place] [id number] [place] [address] 85539- 4112 Feb, Conjunctivitis, bacterial H10.9 [facility] [address] [place] [id number] [place] [address] 03506- 4306 Feb, [facility] [address] 81840 -0366 Feb, Conjunctivitis, bacterial H10.9 [place] [address] 11216- 0827 Feb, [facility] [address] 29859 -8543 Feb, Dysuria R30.0 ; Acute cystitis N30.00 and BMI 40.0-44.9, adult Z68.41 [place] [address] 18274- 4250 Feb, [place] [address] 13431- 8023 Feb, Generalized anxiety disorder F41.1 and Major depressive disorder, recurrent episode with anxious distress F33.9 [place] [id number] [place] [address] 09757- 5924 Feb, Mood disorder F39 and BMI 40.0-44.9, adult Z68.41 [place] [address] [place] [id number] [place] [address] 42199- 8238 Jan, [place] [address] [place] [id number] [place] [address] 80064- 1170 Jan, [place] [address] [place] [id number] [place] [address] 26748- 7845 Jan, Hypothyroid E03.9 [place] [address] 07518- 0866 Jan, [place] [address] [place] [id number] [place] [address] 03474- 4512 Jan, Chronic kidney disease, unspecified N18.9 ; Hypokalemia E87.6 ; Essential (primary) hypertension I10 ; Fibromyalgia M79.7 ; 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, angina presence unspecified I25.10 ; Hypothyroid E03.9 and Encounter for immunization Z23 [place] [address] [place] [id number] [place] [address] 26631- 5041 04 Jan, 2017 Hypothyroid E03.9 [place] [address] 70047- 8129 Jan, [place] [address] 56204- 6374 28 Dec, 2016 Vitamin D deficiency E55.9 [place] [address] 65209- 7132 28 Dec, 2016 Primary osteoarthritis of left knee M17.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 [place] [address] 92774- 0711 19 Dec, 2016 Fibromyalgia M79.7 [place] [address] 76896- 4327 18 Dec, 2016 Mood disorder F39 [place] [address] 98401- 3117 13 Dec, 2016 [place] [address] [place] [id number] [place] [address] 55952- 5992 13 Dec, 2016 Generalized anxiety disorder F41.1 and Major depressive disorder, recurrent episode with anxious distress F33.9 [place] [address] [place] [id number] [place] [address] 42702- 2834 11 Dec, 2016 [place] [address] 03814- 4113 08 Dec, 2016 Streptococcal meningitis G00.2 [place] [address] [place] [id number] [place] [address] 60777- 1008 07 Dec, 2016 Streptococcal meningitis G00.2 [place] [address] 42837- 5414 07 Dec, 2016 [facility] [address] [address]- 8268 Dec, Streptococcal meningitis G00.2 [facility] [address] [address]- 4031 Dec, [facility] [address] [place] [id number] [place] [address] 47157- 9556 Dec, Major depressive disorder, recurrent episode with anxious distress F33.9 [facility] [address] [place] [id number] [place] [address] 04932- 5340 Nov, Fever, unspecified fever cause R50.9 [place] [address] [place] [id number] [place] [address] 16804- 4080 Nov, [place] [address] [place] [id number] [place] [address] 17611- 2934 Nov, Hypothyroid E03.9 [facility] [address] [place] [id number] [place] [address] 97573- 0271 Nov, Generalized anxiety disorder F41.1 and Major depressive disorder, recurrent episode with anxious distress F33.9 [place] [id number] [place] [address] 69601- 1360 Nov, [facility] [id number] [place] [address] [id number] Oct, Dental examination Z01.20 [facility] [id number] [place] [address] 14484- 7706 Oct, Generalized anxiety disorder F41.1 and Major depressive disorder, recurrent episode with anxious distress F33.9 [place] [address] [place] [id number] [place] [address] 75589- 0170 Oct, Chronic kidney disease, stage 4 (severe) N18.4 [facility] [id number] [place] [address] 11326- 6774 Oct, [facility] [address] [address]- 3006 Oct, Fibromyalgia M79.7 [facility] [address] [address]- 4374 Oct, [facility] [address] [address]- 3946 Oct, Generalized anxiety disorder F41.1 ; Major depressive disorder, recurrent episode with anxious distress F33.9 and Bipolar disorder, current episode manic without psychotic features F31.10 [place] [address] [address]- 1270 Sep, [place] [address] [place] [id number] [place] [address] 11753- 5873 Sep, [place] [id number] [place] [address] 58303- 2208 Sep, Vitamin D deficiency E55.9 [place] [address] [address]- 8647 Sep, Vitamin D deficiency E55.9 [place] [id number] [place] [address] 74400- 3591 Sep, [place] [address] [address]- 5442 Sep, Chronic kidney disease, stage 4 (severe) N18.4 ; Hypothyroid E03.9 ; Restless leg G25.81 ; Fibromyalgia M79.7 ; Essential ( primary) hypertension I10 ; Vitamin D deficiency E55.9 ; Dyspepsia R10.13 ; Anemia in chronic kidney disease D63.1 ; Chronic kidney disease, unspecified N18.9 ; 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 , angina presence unspecified I25.10 ; Screening breast examination Z12.39 and Low back pain M54.5 [place] [address] [address]- 2535 August, Generalized anxiety disorder F41.1 and Major depressive disorder, recurrent episode with anxious distress F33.9 [place] [address], [place] [address]- 4565 August, Generalized anxiety disorder F41.1 and Major depressive disorder, recurrent episode with anxious distress F33.9 [place] [address] [address]- 9310 August, Fibromyalgia M79.7 [place] [address] [place] [id number] [place] [address] 55980- 1621 Jul, Generalized anxiety disorder F41.1 and Major depressive disorder, recurrent episode with anxious distress F33.9 [place] [address] [place] [id number] [place] [address] 03264- 7547 Jul, Fibromyalgia M79.7 [place] [address] [place] [id number] [place] [address] 32410- 8000 Jul, Generalized anxiety disorder F41.1 [place] [address] [place] [id number] [place] [address] 39600- 2160 May, [place] [address] [place] [id number] [place] [address] 28547- 8073 May, Hypothyroid E03.9 [place] [id number] [place] [address] 30079- 9047 May, Chronic kidney disease, stage 4 (severe) N18.4 ; Hypothyroid E03.9 ; Restless leg G25.81 ; Fibromyalgia M79.7 ; Essential ( primary) hypertension I10 ; Vitamin D deficiency E55.9 ; Dyspepsia R10.13 ; Acute non-recurrent maxillary sinusitis J01.00 ; Anemia in chronic kidney disease D63.1 ; Chronic kidney disease, unspecified N18.9 and 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, angina presence unspecified I25.10 [place] [address], [place] [address]- 3628 May, Vitamin D deficiency, unspecified E55.9 [place] [address] [place] [id number] [place] [address] 75184- 2833 May, Generalized anxiety disorder F41.1 and Major depressive disorder, recurrent episode with anxious distress F33.9 [place] [address] [place] [id number] [place] [address] 11953- 9786 Apr, Pain in right knee M25.561 and Pain in left knee M25.562 [place] [address] [place] [id number] [place] [address] 72223- 2978 Apr, [place] [address] [place] [id number] [place] [address] 03908- 8516 Apr, [place] [address] [place] [id number] [place] [address] 68827- 8163 Apr, [place] [address] [place] [id number] [place] [address] 05765- 1955 Mar, Generalized anxiety disorder F41.1 and Major depressive disorder, recurrent episode with anxious distress F33.9 [place] [address] [place] [id number] [place] [address] 52637- 5710 Mar, Generalized anxiety disorder F41.1 and Major depressive disorder, recurrent episode with anxious distress F33.9 [place] [address] [place] [id number] [place] [address] 04307- 4503 Mar, [place] [address] [place] [id number] [place] [address] 99860- 2435 Mar, [place] [address] [place] [id number] [place] [address] 35864- 1990 Mar, [place] [address] [place] [id number] [place] [address] 53069- 2940 Mar, Asthma J45.909 and Fibromyalgia M79.7 [place] [address] [place] [id number] [place] [address] 81496- 7330 Mar, Chronic kidney disease, stage 4 (severe) N18.4 ; Vitamin D deficiency E55.9 and Essential (primary) hypertension I10 [place] [address] [place] [address]- 6921 Feb, [facility] [address] [place] [id number] [place] [address] 71840- 6308 Feb, Dysuria R30.0 ; Mixed stress and urge urinary incontinence N39.46 ; Fibromyalgia M79.7 and Chronic kidney disease, stage IV (severe) N18.4 [facility] [address] 20025- 3788 Feb, Chronic kidney disease, stage 4 (severe) N18.4 [facility] [address] [place] [id number] [place] [address] 55497- 2761 Feb, Chronic kidney disease, stage 4 (severe) N18.4 [facility] [address] [place] [id number] [place] [address] 57696- 9195 Feb, [facility] [address] 52542- 7377 Feb, Vitamin D deficiency, unspecified E55.9 [facility] [address] [place] [id number] [place] [address] 81297- 1830 Jan, [facility] [address] [place] [id number] [place] [address] 24159- 3751 Jan, [facility] [address] [place] [id number] [place] [address] 73001 2549 30 Dec, 2015 [facility] [address] [place] [id number] [place] [address] 69335 2540 Dec, Chronic kidney disease, stage 4 (severe) N18.4 [facility] [address] [place] [id number] [place] [address] 65531 2540 Dec, Dysthymic disorder F34.1 and Generalized anxiety disorder F41.1 [facility] [address] [place] [id number] [place] [address] 78171 2546 Dec, [facility] [address] [id number] [place] [address] 31334- 2914 Dec, [facility] [address] [id number] [place] [address] 33789- 3880 Dec, Dysthymic disorder F34.1 and Generalized anxiety disorder F41.1 [facility] [address] [place] [id number] [place] [address] 31345- 4115 Dec, Dysuria R30.0 ; Chronic kidney disease, stage 4 (severe) N18.4 ; Hypertension I10 ; Dyspepsia R10.13 ; Yeast dermatitis B37.2 ; Palpitations R00.2 ; Hypothyroid E03.9 ; Functional diarrhea K59.1 and Other seasonal allergic rhinitis J30.2 [facility] [address] [place] [id number] [place] [address] 93326 -4426 Dec, [facility] [address] [place] [id number] [place] [address] 40545 -5096 Nov, Dysuria R30.0 and Stress incontinence N39.3 [facility] [address] [place] [id number] [place] [address] 86772- 7553 Nov, [facility] [address] [id number] [place] [address] 82665- 5799 Nov, [place] [address] [place] [address] [id number] [place] [address] 78015- 9617 Nov, Osteoarthritis of knees, bilateral M17.0 [place] [address] [place] [address] [id number] [place] [address] 67610- 2109 Nov, Dysthymic disorder F34.1 and Generalized anxiety disorder F41.1 [facility] [address] [place] [id number] [place] [address] 96966- 0826 Nov, [place] [address] [id number] [place] [address] 50034- 1309 Nov, [facility] [address] [place] [id number] [place] [address] 90701- 9431 Nov, Urgency of urination R39.15 [place] [id number] [place] [address] 42306- 3974 Nov, [place] [address] [place] [id number] [place] [address] 42539- 2016 Nov, Chronic kidney disease, stage 4 (severe) N18.4 [place] [id number] [place] [address] 71348- 7757 Oct, Hypertension I10 ; 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, angina presence unspecified I25.10 ; Palpitations R00.2 ; Hypothyroid E03.9 ; Right foot pain M79.671 ; Functional diarrhea K59.1 and Other seasonal allergic rhinitis J30.2 [place] [id number] [place] [address] 34867- 8807 Oct, Dysthymic disorder F34.1 and Generalized anxiety disorder F41.1 [place] [address] [id number] [place] [address] 39408- 5763 Sep, [place] [id number] [place] [address] 74309- 6973 Sep, [place] [address] [place] [id number] [place] [address] 12513- 3934 Sep, [place] [id number] [place] [address] [phone] Sep, [place] [id number] [place] [address] [phone] Sep, [place] [id number] [place] [address] [phone] 2494 Sep, Dysthymic disorder F34.1 and Generalized anxiety disorder F41.1 [place] [id number] [place] [address] [id number]- [phone] 16 Sep, 2015 Asthma with acute exacerbation in adult J45.901 ; Dysuria R30.0 ; Chronic kidney disease, stage 4 (severe) N18.4 and History of anemia Z86.2 [place] [id number] [place] [address] [id number]- [phone] Sep, Generalized anxiety disorder F41.1 and Dysthymic disorder F34.1 [place] [id number] [place] [address] [phone] August, Screening breast examination Z12.39 and Acute recurrent maxillary sinusitis J01.01 [place] [id number] [place] [address] [phone]- [phone] August, Osteoarthritis of knees, bilateral M17.0 [place] [id number] [place] [address] 24574- [phone] August, Chronic kidney disease, stage 4 (severe) N18.4 ; Acute non- recurrent maxillary sinusitis J01.00 ; Urinary problem R39.89 ; Bowel habit changes R19.4 ; Functional diarrhea K59.1 and History of colon polyps Z86.010 [place] [id number] [place] [address] 50809- 4131 Jul, Dysthymic disorder F34.1 and Generalized anxiety disorder F41.1 [place] [id number] [place] [address] 50224- 2733 Jul, [place] [id number] [place] [address] 87614- 1920 Jul, Dysthymic disorder F34.1 ; Generalized anxiety disorder F41.1 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 [place] [id number] [place] [address] 45964- 9983 Jul, [place] [id number] [place] [address] 54740- 7359 Jun, [place] [id number] [place] [address] 92534- 1736 08 Jun, 2015 [place] [id number] [place] [address] 52689- 0527 May, [place] [id number] [place] [address] 32257- 5591 May, Dysthymic disorder F34.1 and Generalized anxiety disorder F41.1 [place] [address] 00648- 9728 Apr, Kidney disease N28.9 [place] [address] 41220- 4582 Apr, Generalized anxiety disorder F41.1 and Dysthymic disorder F34.1 [place] [address] 08644- 3200 Apr, Chronic kidney disease, stage 4 (severe) N18.4 [place] [address] 54515- 1338 Apr, Generalized anxiety disorder F41.1 ; Major depression, recurrent F33.9 and Sleep disturbance G47.9 [place] [address] 76166- 8651 Mar, Generalized anxiety disorder F41.1 and Dysthymic disorder F34.1 [place] [address] 77548- 2231 Mar, Generalized anxiety disorder F41.1 ; Dysthymic disorder F34.1 and Insomnia G47.00 [place] [id number] [place] [address] 95417- 1491 Mar, [place] [address] 33823- 2664 Mar, [place] [id number] [place] [address] 61399- 9058 Mar, Osteoarthritis of knees, bilateral M17.0 [place] [id number] [place] [address] 71314- 4634 Mar, Hypertension I10 ; Hypothyroid E03.9 ; Dysthymic disorder F34.1 ; Chronic kidney disease, stage 4 (severe) N18.4 and Nausea & vomiting R11.2 [place] [id number] [place] [address] 82698- 0458 15 Mar, 2015 Generalized anxiety disorder F41.1 ; Dysthymic disorder F34.1 and Insomnia G47.00 [place] [id number] [place] [address] 05021- 2689 Mar, Dehydration E86.0 ; Chronic kidney disease, stage 4 (severe ) N18.4 and Nausea & vomiting R11.2 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, angina presence unspecified I25.10 ; Hypertension I10 ; Hypothyroid E03.9 ; Vitamin D deficiency E55.9 ; Insomnia G47.00 ; Palpitations R00.2 ; Depressed F32.9 ; Restless leg G25.81 and Anxiety F41.9 [place] [id number] [place] [address] 67360- 7390 Jan, Dysthymic disorder F34.1 and Generalized anxiety disorder F41.1 [place] [id number] [place] [address] 47063- 5389 Jan, [place] [id number] [place] [address] 55310- 1342 Dec, [id number] [place] [address] 65066- 6895 28 Dec, 2014 Alkalosis 276.3 ; Chronic kidney disease, 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.4 ; Hyperpotassemia 276.7 ; Secondary hyperparathyroidism, renal 588.81 ; Proteinuria 791.0 ; Unspecified vitamin D deficiency 268.9 ; Anemia in chronic kidney disease 285.21 ; Other and unspecified hyperlipidemia 272.4 ; Hypertension, essential, benign 401.1 and Chronic kidney disease (CKD), stage III (moderate) 585.3 [place] [id number] [place] [address] 68939- 0315 Dec, [address] 67182- 4971 Dec, Depressive disorder, not elsewhere classified 311 and Generalized anxiety disorder 300.02 [place] [id number] [place] [address] 36194- 0180 Dec, [place] [id number] [place] [address] 28375- 4584 Dec, [place] [id number] [place] [address] 71097- 5815 Nov, Depressive disorder, not elsewhere classified 311 and Generalized anxiety disorder 300.02 [place] [id number] [place] [address] 18812- 8602 Nov, Arthritis of both knees 716.96 [place] [id number] [place] [address] 84468- 8740 Nov, PAF (paroxysmal atrial fibrillation) 427.31 ; CAD (coronary artery disease) 414.00 ; Chest pain 786.50 and Chronic kidney disease (CKD) stage G4/A1, severely decreased glomerular filtration rate (GFR) between 15-29 mL/min/1.73 square meter and albuminuria creatinine ratio less than 30 mg/g 585.4 [place] [id number] [place] [address] 39452- 1317 Oct, Coronary atherosclerosis of unspecified type of vessel, 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 ; Chronic kidney disease, 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.4 ; Hypertension 401.9 and Edema 782.3 [place] [id number] [place] [address] 98292- 8356 Oct, Depressive disorder, not elsewhere classified 311 and Generalized anxiety disorder 300.02 [place] [id number] [place] [address] 38522- 8077 Oct, Depressive disorder, not elsewhere classified 311 and Generalized anxiety disorder 300.02 [place] [address] 48193- 3435 Oct, [address] 77560- 4303 Oct, [address] 21966- 1688 Sep, [address] 47949- 6231 Sep, Chronic kidney disease, 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.4 [place] [id number] [place] [address] 47899- 1628 Sep, [place] [id number] [place] [address] 28399- 3274 Sep, Coronary atherosclerosis of unspecified type of vessel, 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 ; Hypertension 401.9 ; Edema 782.3 and Hypothyroidism 244.9 [place] [id number] [place] [address] 23939- 1930 Sep, Coronary atherosclerosis of unspecified type of vessel, 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 ; Hypertension 401.9 ; Fibromyalgia 729.1 ; Edema 782.3 ; Hypothyroidism 244.9 and Anemia 285.9 [place] [id number] [place] [address]- 5783 Sep, Anxiety disorder, unspecified 300.00 and Depressive disorder , not elsewhere classified [address] 42919- 2991 Sep, [facility] [address] [address]- 2021 August, Generalized anxiety disorder 300.02 [facility] [address] [address]- 8779 August, Closed fracture of lateral malleolus 824.2 [facility] [address] [address]- 6563 Jul, [facility] [id number] [address]- 8778 Jul, [facility] [id number] [place] [address] 58381- 5362 Jun, [facility] [address] [address]- 4209 Jun, [facility] [id number] [place] [address] 36549- 6660 Jun, [facility] [address] [address]- 4275 Jun, [facility] [address] [address]- 2950 Jun, [facility] [address] [address]- 5352 Jun, [facility] [address] [address]- 2166 May, [facility] [id number] 7252 May, [facility] [address] [address]- 7081 May, [facility] [id number] 9103 May, [facility] [address], [place] [address]- 1343 16 May, 2014 [facility] [place] [facility] [address] [id number] [place] [address]- 1487 16 May, 2014 [facility] [place] [facility] [address] [id number] [place] 9896 13 May, 2014 [facility] [place] [facility] [address] [id number] [place] [address]- 1366 13 May, 2014 [facility] [place] [facility] [address] [id number] [place] [address]- 5625 10 May, 2014 [facility] [place] [facility] [address] [id number] [place] [address]- 2275 10 May, 2014 [facility] [place] [facility] [address] [id number] [place] [address]- 2876 Apr, [facility] [place] [facility] [address] [id number] [place] [address]- 1120 Apr, [facility] [place] [facility] [address] [id number] [place] [address]- 1878 Mar, [facility] [place] [facility] [address] [id number] [place] [address]- 8107 Mar, [facility] [place] [facility] [address] [facility] [id number] [place] [address]- 4885 Mar, [facility] [place] [facility] [address] [id number] [place] [address]- 8378 15 Mar, 2014 [facility] [place] [facility] [address] [id number] [place] [address]- 2541 Mar, [facility] [place] [facility] [address] [id number] [place] [address]- 3975 Mar, [facility] [place] [facility] [address] [id number] [place] [address]- 0530 Mar, [facility] [place] [facility] [address] [id number] [place] [address]- 3316 Feb, [facility] [place] [facility] [address] [id number] [place] [address]- 9640 Feb, [facility] [place] [facility] [address] [id number] [place] [address]- 5848 Feb, [facility] [place] [facility] [address] [id number] [place] [address]- 6615 Jan, [facility] [place] [facility] [address] [id number] [place] [address]- 1529 Jan, [facility] [place] [facility] [address] [id number] [place] [address]- 7658 Jan, [facility] [place] [facility] [address] [id number] [place] [address]- 1963 Jan, [facility] [place] [facility] [address] [id number] [place] [address]- 8499 Jan, [facility] [place] [facility] [address] [id number] [place] [address]- 1257 Jan, [facility] [place] [facility] [address] [id number] [place] [address]- 6002 Jan, [facility] [place] [facility] [address] [id number] [place] [address]- 3436 Jan, [facility] [place] [facility] [address] [id number] [place] [address]- 1359 Jan, [facility] [place] [facility] [address] [id number] [place] [address]- 8846 Jan, [facility] [place] [facility] [address] [id number] [place] [address]- 0038 Nov, [facility] [place] [facility] [address] [id number] [place] [address]- 3786 Nov, [facility] [place] [facility] [address] [id number] [place] [address]- 7695 Nov, [facility] [place] [facility] [address] [id number] [place] [address]- 6051 Oct, [facility] [place] [facility] [address] [id number] [place] [address]- 6049 Oct, [facility] [place] [facility] [address] [id number] [place] [address]- 4023 Oct, [facility] [place] [facility] [address] [id number] [place] [address]- 0158 Oct, [facility] [place] [facility] [address] [id number] [place] [address]- 2695 Oct, [facility] [place] [facility] [address] [id number] [place] [address]- 2704 Oct, [facility] [place] [facility] [address] [id number] [place] [address]- 3824 Oct, [facility] [place] [facility] [address] [id number] [place] [address]- 5720 Oct, [facility] [place] [facility] [address] [id number] [place] [address]- 0418 Oct, [facility] [place] [facility] [address] [id number] [place] [address]- 2634 Sep, [facility] [place] [facility] [address] [id number] [place] [address]- 5698 Sep, [facility] [place] [facility] [address] [id number] [place] [address]- 7366 24 Sep, 2013 [facility] [place] [facility] [address] [id number] [place] [address]- 5572 Sep, [facility] [place] [facility] [address] [id number] [place] [address]- 6678 Sep, [facility] [place] [facility] [address] [id number] [place] [address]- 3572 Sep, [facility] [place] [facility] [address] [id number] [place] [address]- 9180 Sep, [facility] [place] [facility] [address] [id number] [place] [address]- 6317 Sep, [facility] [place] [facility] [address] [id number] [place] [address]- 8395 Sep, [facility] [place] [facility] [address] [id number] [place] [address]- 1458 August, [facility] [place] [facility] [address] [id number] [place] [address]- 5989 August, [facility] [place] [facility] [address] [id number] [place] [address]- 4054 August, [facility] [place] [facility] [address] [id number] [place] [address]- 6842 August, [facility] [place] [facility] [address] [id number] [place] [address]- 0990 August, [facility] [place] [facility] [address] [id number] [place] [address]- 9821 August, [facility] [place] [facility] [address] [id number] [place] [address]- 6745 Jul, [facility] [place] [facility] [address] [id number] [place] [address]- 7775 Jul, [facility] [place] [facility] [address] [id number] [place] [address]- 3270 Jul, [facility] [place] [facility] [address] [id number] [place] [address]- 6854 Jul, [facility] [place] [facility] [address] [id number] [place] [address]- 6658 Jul, [facility] [place] [facility] [address] [id number] [place] [address]- 7705 Jul, [facility] [place] [facility] [address] [id number] [place] [address]- 3775 Jun, [facility] [place] [facility] [address] [id number] [place] [address]- 9177 Jun, [facility] [place] [facility] [address] [id number] [place] [address]- 2285 May, [facility] [place] [facility] [address] [id number] [place] [address]- 4391 May, [facility] [place] [facility] [address] [id number] [place] [address]- 1234 May, [facility] [place] [facility] [address] [id number] [place] [address]- 5894 May, [facility] [place] [facility] [address] [id number] [place] [address]- 6030 Apr, [facility] [place] [facility] [address] [id number] [place] [address]- 7492 Apr, [facility] [place] [facility] [address] [id number] [place] [address]- 6860 18 Mar, 2013 [facility] [place] [facility] [address] [id number] [place] [address]- 9172 18 Mar, 2013 [facility] [place] [facility] [address] [id number] [place] [address]- 6431 17 Mar, 2013 [facility] [place] [facility] [address] [id number] [place] [address]- 8982 17 Mar, 2013 [facility] [place] [facility] [address] [id number] [place] [address]- 7122 05 Mar, 2013 [facility] [place] [facility] [address] [id number], [place] [address]- 4314 05 Mar, 2013 [facility] [place] [facility] [address] [id number] [place] [address]- 6957 20 Feb, 2013 [facility] [place] [facility] [address] [id number] [place] [address]- 0091 20 Feb, 2013 [facility] [place] [facility] [address] [id number] [place] [address]- 6622 14 Feb, 2013 [facility] [place] [facility] [address] [id number], [place] [address]- 4040 Feb, [facility] [place] [facility] [address] [id number] [place] [address]- 0049 Feb, [facility] [place] [facility] [address] [id number] [place] [address]- 6271 Feb, [facility] [place] [facility] [address] [id number] [place] [address]- 9382 Jan, [facility] [place] [facility] [address] [id number] [place] [address]- 6628 Jan, [facility] [place] [facility] [address] [id number] [place] [address]- 0671 Jan, [facility] [place] [facility] [address] [id number] [place] [address]- 8037 Jan, [facility] [place] [facility] [address] [facility] [id number] [place] [address]- 0959 Jan, [facility] [place] [facility] [address] [id number] [place] [address]- 7866 Jan, [facility] [place] [facility] [address] [facility] [id number] [place] [address]- 1947 Dec, [facility] [place] [facility] [address] [facility] [id number] [place] [address]- 3160 Dec, [facility] [place] [facility] [address] [id number] [place] [address]- 0462 Nov, [facility] [place] [facility] [address] [id number], [place] [address]- 9316 Nov, [facility] [place] [facility] [address] [id number] [place] [address]- 5701 Oct, [facility] [place] [facility] [address] [facility] [id number] [place] [address]- 1242 Oct, [facility] [place] [facility] [address] [facility] [id number] [place] [address]- 2501 Oct, [facility] [place] [facility] [address] [id number] [place] [address]- 9904 Oct, [facility] [place] [facility] [address] [id number] [place] [address]- 3938 Oct, [facility] [place] [facility] [address] [id number] [place] [address]- 9431 Oct, [facility] [place] [facility] [address] [id number] [place] [address]- 9645 Sep, [facility] [place] [facility] [address] [id number] [place] [address]- 3884 Sep, [facility] [place] [facility] [address] [id number] [place] [address]- 6182 Sep, [facility] [place] [facility] [address] [id number] [place] [address]- 7069 Sep, [facility] [place] [facility] [address] [id number] [place] [address]- 7953 August, [facility] [address] [id number] [place] [address]- 4139 August, [facility] [place] [facility] [address] [id number] [place] [address]- 1077 August, [facility] [place] [facility] [address] [id number] [place] [address]- 1777 August, [facility] [place] [facility] [address] [id number] [place] [address]- 5605 August, [facility] [place] [facility] [address] [id number] [place] [address]- 4496 Jul, [facility] [place] [facility] [address] [id number] [place] [address]- 8127 Jul, [facility] [place] [facility] [address] [id number] [place] [address]- 4351 15 Jul, 2012 [facility] [place] [facility] [address] [id number] [place] [address]- 8183 Jul, [facility] [place] [facility] [address] [id number] [place] [address]- 0175 Jul, [facility] [place] [facility] [address] [id number] [place] [address]- 5106 Jul, [facility] [address] [id number] [place] [address]- 9476 Jul, [facility] [place] [facility] [address] [id number] [place] [address]- 6545 Jul, [facility] [address] [id number] [place] [address]- 2807 Jul, [facility] [address] [id number] [place] [address]- 5915 Jul, [facility] [address] [id number] [id number] Jun, [facility] [place] [facility] [address] [id number], [place] [address]- 7231 Jun, [facility] [place] [facility] [address] [id number] [place] [address]- 2832 Jun, [facility] [place] [facility] [address] [id number], [place] [address]- 5606 Jun, [facility] [place] [facility] [address] [id number], [place] [address] Jun, [facility] [place] [facility] [address] [id number], [place] [address] May, [facility] [place] [facility] [address] [id number] [place] [address] May, [facility] [place] [facility] [address] [id number], [place] [address] May, [facility] [place] [facility] [address] [id number], [place] [address] Apr, [facility] [place] [facility] [address] [id number] [place] [address] Apr, [facility] [address] [id number] [place] [address] Apr, [facility] [place] [facility] [address] [id number] [place] [address] Apr, [facility] [address] [id number] [place] [address] Apr, [facility] [place] [facility] [address] [id number] [place] [address]- [address] Apr, [facility] [place] [facility] [address] [id number] [place] [address] Mar, [facility] [place] [facility] [address] [id number] [place] [address] Mar, [facility] [address] [id number] [place] [address]- [address] Mar, [facility] [place] [facility] [address] [id number] [place] [address] Mar, [facility] [place] [facility] [address] [id number] [place] [address] Feb, [facility] [place] [facility] [address] [facility] [id number] [place] [address]- [address] Feb, [facility] [place] [facility] [address] [id number] [place] [address]- [address] Feb, [facility] [place] [facility] [address] [id number] [place] [address]- [address] Feb, [facility] [place] [facility] [address] [id number] [place] [address]- [address] Feb, [facility] [place] [facility] [address] [id number] [place] [address]- [address] Feb, [facility] [place] [facility] [address] [facility] [id number] [place] [address]- [address] Feb, [facility] [place] [facility] [address] [id number] [place] [address]- [address] Feb, [facility] [place] [facility] [address] [id number] [place] [address]- [address] Feb, [facility] [place] [facility] [address] [id number] [place] [address]- [address]64 Feb, [facility] [place] [facility] [address] [id number] [place] [address]- [address] Feb, [facility] [place] [facility] [address] [id number] [place] [address]- [address] Feb, [facility] [place] [facility] [address] [id number] [place] [address]- [address] Feb, [facility] [place] [facility] [address] [id number] [place] [address]- [address] Feb, [facility] [place] [facility] [address] [id number] [place] [address]- [address] Feb, [facility] [place] [facility] [address] [id number] [place] [address]- [address] Feb, [facility] [place] [facility] [address] [id number] [place] [address]- [address] Jan, [facility] [place] [facility] [address] [id number] [place] [address]- [address] Jan, [facility] [place] [facility] [address] [id number] [place] [address]- [address] Jan, [facility] [place] [facility] [address] [id number] [place] [address]- [address] Jan, [facility] [place] [facility] [address] [id number] [place] [address]- [address] 30 Jan, 2012 [facility] [place] [facility] [address] [id number] [place] [address]- [address] Jan, [facility] [place] [facility] [address] [id number] [place] [address]- [address] 25 Jan, 2012 [facility] [place] [facility] [address] [id number] [place] [address]- [address] 16 Jan, 2012 [facility] [place] [facility] [address] [id number] [place] [address]- [address] 16 Jan, 2012 [facility] [place] [facility] [address] [id number] [place] [address]46 15 Jan, 2012 [facility] [place] [facility] [address] [id number] [place] [address]- [address] 15 Jan, 2012 [facility] [place] [facility] [address] [id number] [place] [address]- [address] 01 Jan, 2012 [facility] [place] [facility] [address] [id number] [place] [address]- [address] 26 Sep, 2011 [facility] [place] [facility] [address] [id number] [place] [address]- [address] 26 Sep, 2011 [facility] [place] [facility] [address] [id number], [place] [address] 24 Sep, 2011 [facility] [place] [facility] [address] [id number] [place] [address] 2546 23 Sep, 2011 [facility] [place] [facility] [address] [id number] [place] [address]- [address]46 22 Sep, 2011 [facility] [place] [facility] [address] [id number], [place] [address] 21 Sep, 2011 [facility] [place] [facility] [address] [id number], [place] [address] 2546 20 Sep, 2011 [facility] [place] [facility] [address] [id number] [place] [address] 2546 20 Sep, 2011 [facility] [place] [facility] [address] [facility] [id number], [place] [address] 07 Sep, 2011 [facility] [place] [facility] [address] [id number], [place] [address] 06 Sep, 2011 [facility] [place] [facility] [address] [id number] [place] [address]- [address] 06 Dec, 2011 [facility] [address] [id number] [place] [address]- [address] 05 Dec, 2011 [facility] [place] [facility] [address] [id number] [place] [address]- [address]686 23 Nov, 2011 [facility] [facility] [address] [id number] [place] [address] 17 Nov, 2011 [facility] [place] [facility] [address] [id number] [place] [address] 13 Nov, 2011 [facility] [address] [id number] [place] [address] Nov, [facility] [place] [facility] [address] [id number] [place] [address] Nov, [facility] [address] [id number] [place] [address] Nov, [facility] [address] [id number] [place] [address] Nov, [facility] [place] [facility] [address] [id number] [place] [address] Nov, [facility] [address] [id number] [place] [address] Oct, [facility] [place] [facility] [address] [id number] [place] [address] Oct, [facility] [place] [facility] [address] [id number] [place] [address] Oct, [facility] [place] [facility] [address] [id number] [place] [address] Oct, [facility] [place] [facility] [address] [id number] [place] [address] Oct, [facility] [place] [facility] [address] [id number] [place] [address] Oct, [facility] [place] [facility] [address] [id number] [place] [address] Oct, [facility] [place] [facility] [address] [id number] [place] [address] Sep, [facility] [place] [facility] [address] [id number] [place] [address] Sep, [facility] [place] [facility] [address] [id number] [place] [address] August, [facility] [address] [id number] [place] [address] August, [facility] [place] [facility] [address] [id number] [place] [address] August, [facility] [address] [id number] [place] [address] August, [facility] [address] [id number] [place] [address] Jul, [facility] [place] [facility] [address] [id number] [place] [address] Jul, [facility] [place] [facility] [address] [id number] [place] [address]- [address] Jul, [facility] [place] [facility] [address] [id number] [place] [address] Jul, [facility] [place] [facility] [address] [id number] [place] [address] Jul, [facility] [place] [facility] [address] [id number] [place] [address] Jul, [facility] [place] [facility] [address] [id number] [place] [address] Jul, [facility] [place] [facility] [address] [id number] [place] [address] Jul, [facility] [place] [facility] [address] [id number], [place] [address] 02 Jul, 2011 [facility] [address] [id number] [place] [address]- [address] 23 Jun, 2011 [facility] [place] [facility] [address] [id number] [place] [address]- [address] 19 Jun, 2011 [facility] [place] [facility] [address] [facility] [id number] [place] [address]- [address] 15 Jun, 2011 [facility] [place] [facility] [address] [id number] [place] [address]- [address] 14 Jun, 2011 [facility] [place] [facility] [address] [id number] [place] [address]- 1156 12 Jun, 2011 [facility] [place] [facility] [address] [facility] [id number] [place] [address] Jun, [facility] [address] [id number] [place] [address] Jun, [facility] [place] [facility] [address] [facility] [id number] [place] [address]- [address] 25 May, 2011 [facility] [place] [facility] [address] [id number] [place] [address] 24 May, 2011 [facility] [place] [facility] [address] [facility] [id number] [place] [address]- 1191 16 May, 2011 [facility] [place] [facility] [address] [id number] [place] [address]- [address] 16 May, 2011 [facility] [place] [facility] [address] [facility] [id number], [place] [address] 2546 May, [facility] [place] [facility] [address] [id number] [place] [address]- [address] Apr, [facility] [place] [facility] [address] [id number] [place] [address]- [address] Apr, [facility] [place] [facility] [address] [facility] [id number], [place] [address] Apr, [facility] [place] [facility] [address] [id number] [place] [address]- [address] Apr, [facility] [place] [facility] [address] [id number] [place] [address]- [address] Apr, [facility] [place] [facility] [address] [id number] [place] [address]- [address] Mar, [facility] [place] [facility] [address] [id number] [place] [address]- [address] Mar, [facility] [place] [facility] [address] [id number] [place] [address]- 1690 Mar, [facility] [place] [facility] [address] [id number] [place] [address]- [address] Mar, [facility] [place] [facility] [address] [id number] [place] [address]- [address]99 Mar, [facility] [place] [facility] [address] [id number] [place] [address]- 9296 Mar, [facility] [place] [facility] [address] [id number] [place] [address]- 136[address] Mar, [facility] [place] [facility] [address] [id number] [place] [address]- [address] Feb, [facility] [place] [facility] [address] [id number] [place] [address]- 1549 Feb, [facility] [place] [facility] [address] [id number] [place] [address]- 1586 Feb, [facility] [place] [facility] [address] [id number] [place] [address]- 7593 Feb, [facility] [place] [facility] [address] [id number] [place] [address]- 9[address] Jan, [facility] [place] [facility] [address] [id number] [place] [address]- 8562 Jan, [facility] [place] [facility] [address] [id number], [place] [address] Jan, [facility] [address] [facility] [id number], [place] [address] Jan, [facility] [address] [facility] [id number][place] [address] Nov, [facility] [id number], [place] [address] Mar, [facility] [address] [facility] [id number], [place] [address] Mar, [facility] [address] [facility] [id number], [place] [address]- 31[address] Mar, [facility] [address] [facility] [id number], [place] [address]- [address] Mar, [facility] [id number], [place] [address] Mar, [facility] [id number], [place] [address] 30[address] Mar, [facility] [id number], [place] [address] Feb, [facility] [id number], [place] [address] Feb, [facility] [address] [id number], [place] [address] Jan, [facility] [id number], [place] [address]- [address] Jan, [facility] [address] [id number], [place] [address] 2004 Jan, IMMUNIZATIONS No Known Immunizations SOCIAL HISTORY [...] 2020 & 2007 Surgical History Bladder surgery [facility] 03/2016 Hospitalization History Surgeries Only Hospitalization History 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
--- OUTSIDE RECORDS SUMMARY | 2018-05-29 08:35 | XMS REPORT ---
Author Author ISABEL MAE [facility] Address [address] [place] [address] Care Team Providers Care [employer] Leader Name Role Phone ISABEL MAE Unavailable PROBLEMS Type Condition ICD9-CM Code PHY38-JN Code Onset Dates Condition Status SNOMED Code Problem Long-term use of high-risk medication Z79.899 Active 195635456 Problem Abnormal chest CT R93.8 Active 650063534 Problem Low back pain M54.5 Active 154177975 Problem Generalized anxiety disorder F41.1 Active 64332723 Problem Dysthymic disorder F34.1 Active 58270323 Problem Coronary artery disease involving tling[place] & ha[place] coronary artery of tlingit & ha[place] heart, angina presence unspecified I25.10 Active 8914156211550 Problem Depressed F32.9 Active 82141296 Problem Fibromyalgia M79.7 Active 073910723 Problem Hypothyroid E03.9 Active 76533920 Problem Essential (primary) hypertension I10 Active 37307957 Problem Insomnia G47.00 Active 781739654 Problem Vitamin D deficiency E55.9 Active 08652033 Problem Anemia in chronic kidney disease D63.1 Active 749395565853110 Problem Chronic kidney disease, unspecified N18.9 Active 966232409 Problem Body mass index (BMI) of 40.0-44.9 in adult Z68.41 Active 700009747 Problem Stage 3 chronic kidney disease N18.3 Active 226573171 Problem Restless leg G25.81 Active 70641377 Problem Palpitations R00.2 Active 75172564 Problem Asthma J45.909 Active 638091228 Problem Primary osteoarthritis of left knee M17.12 Active 752466416 Problem Bipolar disorder, current episode manic without psychotic features F31.10 Active 524589389 Problem Mood disorder F39 Active 09813326 Problem Degenerative tear of medial meniscus of left knee M23.204 Active 253592561 Problem History of colon polyps Z86.010 Active 768116507 Problem Asthma with acute exacerbation in adult J45.901 Active 813900947 Problem Chronic kidney disease, stage 4 (severe) N18.4 Active 843348436 Problem Functional diarrhea K59.1 Active 07008535 Problem Hypokalemia E87.6 Active 84453944 Problem Mixed stress and urge urinary incontinence N39.46 Active 523251648 Problem History of anemia Z86.2 Active 346540820 Problem Other seasonal allergic rhinitis J30.2 Active 060297987 ALLERGIES No Information ENCOUNTERS Encounter Location Date Diagnosis [place] [id number] [place] [address] 25116- 3465 Sep, [place] [address] 20251- 6170 August, [place] [address] 82428- 8145 August, Abnormal chest CT R93.8 [place] [address] 63184- 3151 August, Generalized anxiety disorder F41.1 and Major depressive disorder, recurrent episode with anxious distress F33.9 [place] [id number] [place] [address] 09601- 3961 August, Ab[address] chest [address] R93.8 [place] [id number] [place] [address] 82667- 1963 Jul, [place] [id number] [place] [address] 96084- 6129 Jul, Chronic kidney disease, stage 4 (severe) N18.4 [place] [id number] [place] [address] 60510- 9602 Jul, [place] [address] 81089- 0755 Jul, Restless leg G25.81 ; Mixed stress and urge urinary incontinence N39.46 and Fibromyalgia M79.7 [place] [id number] [place] [address] 82306- 3310 Jul, Chronic kidney disease, stage 4 (severe) N18.4 [facility] [id number] [place] [address] 19774- 4835 Jun, Orthostatic hypotension I95.1 ; Chronic kidney disease, stage 4 (severe) N18.4 ; Chest wall discomfort R07.89 and Body mass index (BMI) of 40.0-44.9 in adult Z68.41 [place] [id number] [place] [address] 80954- 8665 Jun, [facility] [id number] [place] [address] 07101- 4156 Jun, Orthostatic hypotension I95.1 [place] [id number] [place] [address] 28223- 7067 Jun, [facility] [id number] [place] [address] 24098 -9589 Jun, Orthostatic hypotension I95.1 ; Dysuria R30.0 and Acute cystitis without hematuria N30.00 [place] [id number] [place] [address] 62497- 9740 Jun, [place] [id number] [place] [address] 05805- 5186 Jun, Chronic kidney disease, stage 4 (severe) N18.4 [place] [id number] [place] [address] 77794- 1433 Jun, Fibromyalgia M79.7 [facility] [id number] [place] [address] 29138- 2767 Jun, [place] [id number] [place] [address] 36163- 4667 Jun, [place] [id number] [place] [address] 04427- [address] May, Ab[address] chest [address] R93.8 and Stage 3 chronic kidney disease N18.3 [place] [id number] [place] [address] 19731- 4378 May, Chronic kidney disease, stage 4 (severe) N18.4 [facility] [address] [place] [address] 21047- 7120 May, Chronic kidney disease, stage 4 (severe) N18.4 [facility] [address] [place] [address] 54835- 2107 May, [address] R93.8 [facility] [address] [place] [address] 68135- 9396 May, [facility] [address] [place] [address] 91594- 1638 May, [facility] [address] [place] [address] 61886- 3752 May, Generalized anxiety disorder F41.1 and Major depressive disorder, recurrent episode with anxious distress F33.9 [facility] [id number] [place] [address] 18228- 7367 May, Mood disorder F39 [facility] [address] [place] [address] 79546- 7336 Apr, [facility] [address] [place] [address] 20027- 6165 Apr, Infected skin lesion L08.9 and Muscle strain of right shoulder region, initial encounter S46.911A [facility] [address] [place] [address] 57369- 0287 Apr, Generalized anxiety disorder F41.1 and Major depressive disorder, recurrent episode with anxious distress F33.9 [facility] [address] [place] [address] 72910- 9060 Apr, [facility] [address] [place] [address] 21764- 6059 Apr, Recent urinary tract infection Z87.440 and Hypothyroid E03.9 [facility] [id number] [place] [address] 50023- 9743 Apr, Generalized anxiety disorder F41.1 and Major depressive disorder, recurrent episode with anxious distress F33.9 [place] [id number] [place] [address] 44549- 5936 Apr, Recent urinary tract infection Z87.440 [place] [id number] [place] [address] 81661- 3288 Mar, [facility] [id number] [place] [address] 76350 -5375 Mar, Dysuria R30.0 ; Acute cystitis without hematuria N30.00 and BMI 40.0-44.9, adult Z68.41 [place] [id number] [place] [address] 74369- 6524 Mar, [place] [id number] [place] [address] 92342- 9244 Mar, [place] [id number] [place] [address] 49167- 0329 Mar, Generalized anxiety disorder F41.1 and Major depressive disorder, recurrent episode with anxious distress F33.9 [place] [address] [place] [address] 16634- 6414 Feb, Conjunctivitis, bacterial H10.9 [place] [address] [place] [address] 09676- 9228 Feb, [facility] [place] [id number] [place] [address] 02443 -7444 Feb, Conjunctivitis, bacterial H10.9 [place] [id number] [place] [address] 79436- 2294 Feb, [facility] [place] [id number] [place] [address] 84935 -8377 Feb, Dysuria R30.0 ; Acute cystitis N30.00 and BMI 40.0-44.9, adult Z68.41 [place] [id number] [place] [address] 66012- 1698 Feb, [place] [address] 78858- 6520 Feb, Generalized anxiety disorder F41.1 and Major depressive disorder, recurrent episode with anxious distress F33.9 [place] [address] 12576- 2788 Feb, Mood disorder F39 and BMI 40.0-44.9, adult Z68.41 [place] [address] 43539- 1697 Jan, [place] [address] 06334- 0000 Jan, [place] [address] 70502- 7031 Jan, Hypothyroid E03.9 [place] [id number] [place] [address] 89147- 0848 Jan, [address] 29788- 5334 Jan, Chronic kidney disease, unspecified N18.9 ; Hypokalemia E87.6 ; Essential (primary) hypertension I10 ; Fibromyalgia M79.7 ; Coronary artery disease involving tlingit & haida coronary artery of tlingit & [place] heart, angina presence unspecified I25.10 ; Hypothyroid E03.9 and Encounter for immunization Z23 [place] [id number] [place] [address] 84928- 4955 Jan, Hypothyroid E03.[address] 11119- 1293 Jan, [place] [id number] [place] [address] 19408- 0622 Dec, Vitamin D deficiency E55.[address] 70827- 8880 28 Dec, 2016 Primary osteoarthritis of left knee M17.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 [facility] [id number] [place] [address] 50461- 7261 19 Dec, 2016 Fibromyalgia M79.7 [facility] [address] [place] [address] 82960- 1598 18 Dec, 2016 Mood disorder F39 [facility] [id number] [place] [address] 30927- 9996 13 Dec, 2016 [facility] [id number] [place] [address] 55635- 3772 13 Dec, 2016 Generalized anxiety disorder F41.1 and Major depressive disorder, recurrent episode with anxious distress F33.9 [place] [id number] [place] [address] 67131- 4703 11 Dec, 2016 [place] [id number] [place] [address] 93333- 7508 08 Dec, 2016 Streptococcal meningitis G00.2 [facility] [id number] [place] [address] 71103- 3021 07 Dec, 2016 Streptococcal meningitis G00.2 [facility] [id number] [place] [address] 12055- 8097 07 Dec, 2016 [facility] [id number] [place] [address] 41832- 2807 06 Dec, 2016 Streptococcal meningitis G00.2 [facility] [id number] [place] [address] 28127- 8618 06 Dec, 2016 [facility] [id number] [place] [address] 30912- 6793 06 Dec, 2016 Major depressive disorder, recurrent episode with anxious distress F33.9 [facility] [address] [address]- 4253 Nov, Fever, unspecified fever cause R50.9 [facility] [id number] [place] [address] 34308- 6147 Nov, [facility] [id number] [place] [address] 28993- 9432 Nov, Hypothyroid E03.9 [facility] [id number] [place] [address] 94660- 8776 Nov, Generalized anxiety disorder F41.1 and Major depressive disorder, recurrent episode with anxious distress F33.9 [facility] [id number] [place] [address] 22713- 8133 Nov, [facility] [id number] [place] [address] [phone] Oct, Dental examination Z01.20 [place] [id number] [place] [address] 64523- 4723 Oct, Generalized anxiety disorder F41.1 and Major depressive disorder, recurrent episode with anxious distress F33.9 [place] [id number] [place] [address] 21053- 9701 Oct, Chronic kidney disease, stage 4 (severe) N18.4 [place] [id number] [place] [address] 28590- 3699 Oct, [place] [id number] [place] [address] 91817- 4098 Oct, Fibromyalgia M79.7 [place] [id number] [place] [address] 38365- 9331 Oct, [place] [id number] [place] [address] 76320- 7175 Oct, Generalized anxiety disorder F41.1 ; Major depressive disorder, recurrent episode with anxious distress F33.9 and Bipolar disorder, current episode manic without psychotic features F31.10 [facility] [id number] [place] [address] 95123- 3383 Sep, [facility] [id number] [place] [address] 54082- 7975 Sep, [place] [address] [address]- 9890 Sep, Vitamin D deficiency E55.9 [place] [address] [address]- 2848 14 Sep, 2016 Vitamin D deficiency E55.9 [place] [address] [address]- 5648 07 Sep, 2016 [place] [address] [place] [address] 75035- 8209 Sep, Chronic kidney disease, stage 4 (severe) N18.4 ; Hypothyroid E03.9 ; Restless leg G25.81 ; Fibromyalgia M79.7 ; Essential ( primary) hypertension I10 ; Vitamin D deficiency E55.9 ; Dyspepsia R10.13 ; Anemia in chronic kidney disease D63.1 ; Chronic kidney disease, unspecified N18.9 ; Coronary artery disease involving tling[place] & haida coronary artery of tlingit & ha[place] heart , angina presence unspecified I25.10 ; Screening breast examination Z12.39 and Low back pain M54.5 [place] [id number] [place] [address] 77011- 0278 August, Generalized anxiety disorder F41.1 and Major depressive disorder, recurrent episode with anxious distress F33.9 [place] [address] [address]- 5188 August, Generalized anxiety disorder F41.1 and Major depressive disorder, recurrent episode with anxious distress F33.9 [place] [address] [address]- 9186 August, Fibromyalgia M79.7 [place] [id number] [place] [address] 38061- 6460 Jul, Generalized anxiety disorder F41.1 and Major depressive disorder, recurrent episode with anxious distress F33.9 [place] [address] [address]- 5409 Jul, Fibromyalgia M79.7 [place] [address] [place] [address] 75890- 4762 Jul, Generalized anxiety disorder F41.1 [place] [id number] [place] [address] 08629- 0003 May, [place] [id number] [place] [address] 36834- 8607 May, Hypothyroid E03.9 [place] [id number] [place] [address] 67972- 2476 May, Chronic kidney disease, stage 4 (severe) N18.4 ; Hypothyroid E03.9 ; Restless leg G25.81 ; Fibromyalgia M79.7 ; Essential ( primary) hypertension I10 ; Vitamin D deficiency E55.9 ; Dyspepsia R10.13 ; Acute non-recurrent maxillary sinusitis J01.00 ; Anemia in chronic kidney disease D63.1 ; Chronic kidney disease, unspecified N18.9 and Coronary artery disease involving tlingit & haida coronary artery of tling[place] & [place] heart, angina presence unspecified I25.10 [place] [id number] [place] [address] 48936- 8000 May, Vitamin D deficiency, unspecified E55.9 [place] [id number] [place] [address] 92138- 0303 May, Generalized anxiety disorder F41.1 and Major depressive disorder, recurrent episode with anxious distress F33.9 [place] [id number] [place] [address] 20744- 9982 Apr, Pain in right knee M25.561 and Pain in left knee M25.562 [place] [id number] [place] [address] 57690- 5424 Apr, [place] [id number] [place] [address] 68290- 3973 Apr, [place] [id number] [place] [address] 91083- 2017 Apr, [place] [address] [place] [address] 26350- 7463 Mar, Generalized anxiety disorder F41.1 and Major depressive disorder, recurrent episode with anxious distress F33.9 [place] [id number] [place] [address] 58759- 9901 Mar, Generalized anxiety disorder F41.1 and Major depressive disorder, recurrent episode with anxious distress F33.9 [place] [id number] [place] [address] 37628- 9468 Mar, [place] [id number] [place] [address] 48013- 2777 Mar, [place] [id number] [place] [address] 54936- 1656 Mar, [place] [id number] [place] [address] 51671- 8354 Mar, Asthma J45.909 and Fibromyalgia M79.7 [place] [id number] [place] [address] 14214- 3944 Mar, Chronic kidney disease, stage 4 (severe) N18.4 ; Vitamin D deficiency E55.9 and Essential (primary) hypertension I10 [place] [address] [place] [address] 73405- 0780 Feb, [place] [id number] [place] [address] 97362- 3266 Feb, Dysuria R30.0 ; Mixed stress and urge urinary incontinence N39.46 ; Fibromyalgia M79.7 and Chronic kidney disease, stage IV (severe) N18.4 [place] [id number] [place] [address] 67483- 1402 Feb, Chronic kidney disease, stage 4 (severe) N18.4 [place] [id number] [place] [address] 82727- 8827 Feb, Chronic kidney disease, stage 4 (severe) N18.4 [facility] [id number] [place] [address] 32384- 4761 Feb, [facility] [address] 13495- 8940 Feb, Vitamin D deficiency, unspecified E55.9 [facility] [id number] [place] [address] 85558- 7163 Jan, [facility] [address] 11607- 4175 Jan, [facility] [id number] [place] [address] 65554- 4812 Dec, [place] [id number] [place] [address] 20599- 7882 Dec, Chronic kidney disease, stage 4 (severe) N18.4 [place] [id number] [place] [address] 30660- 4940 Dec, Dysthymic disorder F34.1 and Generalized anxiety disorder F41.1 [facility] [id number] [place] [address] 45290- 2822 Dec, [place] [id number] [place] [address] 10265- 1967 Dec, [place] [id number] [place] [address] 92676- 2825 Dec, Dysthymic disorder F34.1 and Generalized anxiety disorder F41.1 [place] [id number] [place] [address] 09373- 0216 08 Dec, 2015 Dysuria R30.0 ; Chronic kidney disease, stage 4 (severe) N18.4 ; Hypertension I10 ; Dyspepsia R10.13 ; Yeast dermatitis B37.2 ; Palpitations R00.2 ; Hypothyroid E03.9 ; Functional diarrhea K59.1 and Other seasonal allergic rhinitis J30.2 [facility] [id number] [place] [address] 14105 -6391 Dec, [facility] [id number] [place] [address] 20885 -1254 Nov, Dysuria R30.0 and Stress incontinence N39.3 [facility] [id number] [place] [address] 06488- 4539 Nov, [facility] [address] 89609- 3258 Nov, [facility] [address] 15889- 8975 Nov, Osteoarthritis of knees, bilateral M17.0 [place] [address] 62876- 1493 Nov, Dysthymic disorder F34.1 and Generalized anxiety disorder F41.1 [place] [address] 87910- 2730 Nov, [facility] [address] 75276- 0298 Nov, [place] [address] 29405- 7829 Nov, Urgency of urination R39.15 [place] [address] 37676- 1978 Nov, [facility] [address] 48905- 6409 Nov, Chronic kidney disease, stage 4 (severe) N18.4 [place] [address] 81537- 8803 Oct, Hypertension I10 ; Coronary artery disease involving tlingit & haida coronary artery of tling[place] & [place] heart, angina presence unspecified I25.10 ; Palpitations R00.2 ; Hypothyroid E03.9 ; Right foot pain M79.671 ; Functional diarrhea K59.1 and Other seasonal allergic rhinitis J30.2 [place] [address] 44581- 2864 Oct, Dysthymic disorder F34.1 and Generalized anxiety disorder F41.1 [facility] [address] [place] [address] 89689- 1530 Sep, [facility] [id number] [place] [address] 32589- 9076 Sep, [facility] [id number] [place] [address] 24038- 5808 Sep, [facility] [address] [place] [address] 86743- 5879 Sep, [facility] [id number] [place] [address] 27967- 5978 Sep, [place] [id number] [place] [address] 19594- 7151 Sep, Dysthymic disorder F34.1 and Generalized anxiety disorder F41.1 [place] [id number] [place] [address] 11589- 5196 16 Sep, 2015 Asthma with acute exacerbation in adult J45.901 ; Dysuria R30.0 ; Chronic kidney disease, stage 4 (severe) N18.4 and History of anemia Z86.2 [place] [address] [place] [address] 99872- 1016 Sep, Generalized anxiety disorder F41.1 and Dysthymic disorder F34.1 [place] [id number] [place] [address] [id number]- [id number] August, Screening breast examination Z12.39 and Acute recurrent maxillary sinusitis J01.01 [place] [address] [address] [place] [id number] [place] [address] 05538- 2675 August, Osteoarthritis of knees, bilateral M17.0 [place] [id number] [place] [address] 17628- 3611 August, Chronic kidney disease, stage 4 (severe) N18.4 ; Acute non- recurrent maxillary sinusitis J01.00 ; Urinary problem R39.89 ; Bowel habit changes R19.4 ; Functional diarrhea K59.1 and History of colon polyps Z86.010 [place] [address] [place] [id number] [place] [address] [id number]- [id number] 29 Jul, 2015 Dysthymic disorder F34.1 and Generalized anxiety disorder F41.1 [place] [address] [place] [id number] [place] [address] 32679- [id number] Jul, [place] [address] [place] [id number] [place] [address] 57874- 5478 Jul, Dysthymic disorder F34.1 ; Generalized anxiety disorder F41.1 and snf use of drug Z79.899 [place] [address] [place] [id number] [place] [address] 13244- [id number] Jul, [place] [address] [place] [id number] [place] [address] [id number]- [phone] Jun, [place] [address] [place] [id number] [place] [address] [id number]- [phone] Jun, [place] [address] [place] [id number] [place] [address] 23430- [phone] May, [place] [address] [place] [id number] [place] [address] 31959- 4957 May, Dysthymic disorder F34.1 and Generalized anxiety disorder F41.1 [place] [id number] [place] [address] 14434- 2891 Apr, Kidney disease N28.9 [place] [id number] [place] [address] 35622- 9583 Apr, Generalized anxiety disorder F41.1 and Dysthymic disorder F34.1 [place] [id number] [place] [address] 97890- 1495 Apr, Chronic kidney disease, stage 4 (severe) N18.4 [place] [address] [place] [address]- 4777 Apr, Generalized anxiety disorder F41.1 ; Major depression, recurrent F33.9 and Sleep disturbance G47.9 [place] [address] 03536- 4021 Mar, Generalized anxiety disorder F41.1 and Dysthymic disorder F34.1 [place] [address] 95349- 5701 Mar, Generalized anxiety disorder F41.1 ; Dysthymic disorder F34.1 and Insomnia G47.00 [place] [address] 87962- 4004 Mar, [place] [address] 52411- 4217 Mar, [place] [address] 59651- 3096 Mar, Osteoarthritis of knees, bilateral M17.0 [place] [address] 84177- 6311 Mar, Hypertension I10 ; Hypothyroid E03.9 ; Dysthymic disorder F34.1 ; Chronic kidney disease, stage 4 (severe) N18.4 and Nausea & vomiting R11.2 [facility] [id number] [place] [address] 74651- 1219 Mar, Generalized anxiety disorder F41.1 ; Dysthymic disorder F34.1 and Insomnia G47.00 [place] [address] 30226- 9796 Mar, Dehydration E86.0 ; Chronic kidney disease, stage 4 (severe ) N18.4 and Nausea & vomiting R11.2 [facility] [id number] [place] [address] 06062 -7354 Mar, Gastroenteritis K52.9 [facility] [address] 95074- 8764 Mar, [place] [id number] [place] [address] 19927- 8712 Mar, [address] 95031- 8528 Feb, Dysthymic disorder F34.1 and Generalized anxiety disorder F41.[address] 66571- 3555 Jan, UTI (urinary tract infection) N39.0 ; Asthma J45.909 ; Coronary artery disease involving tlingit & haida coronary artery of tlingit & haida heart, angina presence unspecified I25.10 ; Hypertension I10 ; Hypothyroid E03.9 ; Vitamin D deficiency E55.9 ; Insomnia G47.00 ; Palpitations R00.2 ; Depressed F32.9 ; Restless leg G25.81 and Anxiety F41.[address] 93640- 9202 Jan, Dysthymic disorder F34.1 and Generalized anxiety disorder F41.[address] 70008- 1717 Jan, [place] [id number] [place] [address] 93960- 2059 Dec, [place] [id number] [place] [address] 00141- 4799 Dec, Alkalosis 276.3 ; Chronic kidney disease, 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.4 ; Hyperpotassemia 276.7 ; Secondary hyperparathyroidism, renal 588.81 ; Proteinuria 791.0 ; Unspecified vitamin D deficiency 268.9 ; Anemia in chronic kidney disease 285.21 ; Other and unspecified hyperlipidemia 272.4 ; Hypertension, essential, benign 401.1 and Chronic kidney disease (CKD), stage III (moderate) 585.3 [place] [id number] [place] [address] 743275- 5003 Dec, [address] 12633- 3810 Dec, Depressive disorder, not elsewhere classified 311 and Generalized anxiety disorder 300.02 [facility] [id number] [place] [address] 14104- 3069 Dec, [facility] [id number] [place] [address] 88076- 0541 Dec, [facility] [id number] [place] [address] 11348- 3423 Nov, Depressive disorder, not elsewhere classified 311 and Generalized anxiety disorder 300.02 [place] [id number] [place] [address] 87693- 6607 Nov, Arthritis of both knees 716.96 [place] [id number] [place] [address] 49494- 3476 Nov, PAF (paroxysmal atrial fibrillation) 427.31 ; CAD (coronary artery disease) 414.00 ; Chest pain 786.50 and Chronic kidney disease (CKD) stage G4/A1, severely decreased glomerular filtration rate (GFR) between 15-29 mL/min/1.73 square meter and albuminuria creatinine ratio less than 30 mg/g 585.4 [place] [id number] [place] [address] 44074- 2825 Oct, Coronary atherosclerosis of unspecified type of vessel, tlingit & haida or graft 414.00 ; Chronic kidney disease, 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.4 ; Hypertension 401.9 and Edema 782.3 [place] [id number] [place] [address] 98616- 7375 Oct, Depressive disorder, not elsewhere classified 311 and Generalized anxiety disorder 300.02 [facility] [id number] [place] [address] 66250- 3741 Oct, Depressive disorder, not elsewhere classified 311 and Generalized anxiety disorder 300.02 [facility] [id number] [place] [address] 88213- 2160 Oct, [facility] [id number] [place] [address] 42736- 5739 Oct, [facility] [id number] [place] [address] 87583- 0258 Sep, [facility] [address] 90362- 8135 Sep, Chronic kidney disease, 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.[address] 46086- 7915 Sep, [place] [address] 19913- 2301 Sep, Coronary atherosclerosis of unspecified type of vessel, tlingit & haida or graft 414.00 ; Hypertension 401.9 ; Edema 782.3 and Hypothyroidism 244.9 [place] [id number] [place] [address] 51687- 9175 Sep, Coronary atherosclerosis of unspecified type of vessel, tlingit & haida or graft 414.00 ; Hypertension 401.9 ; Fibromyalgia 729.1 ; Edema 782.3 ; Hypothyroidism 244.9 and Anemia 285.9 [place] [id number] [place] [address] 82103- 9000 Sep, Anxiety disorder, unspecified 300.00 and Depressive disorder , not elsewhere classified 311 [place] [id number] [place] [address] 70582- 2258 Sep, [place] [id number] [place] [address] 25025- 5693 August, Generalized anxiety disorder 300.02 [place] [id number] [place] [address] 50038- 0067 August, Closed fracture of lateral malleolus 824.[address] 50542- 0051 Jul, [place] [id number] [place] [address] 05328- 5923 Jul, [address] 20248- 7945 Jun, [facility] [place] [facility] [address] [id number] [place] [address]- 1311 Jun, [facility] [place] [facility] [address] [id number] [place] [address]- 8901 Jun, [facility] [place] [facility] [address] [facility] [id number] [place] [address]- 5264 Jun, [facility] [place] [facility] [address] [facility] [id number] [place] [address]- 0897 Jun, [facility] [place] [facility] [address] [id number] [place] [address]- 4018 Jun, [facility] [place] [facility] [address] [facility] [id number] [place] [address]- 2826 May, 2014 [facility] [place] [facility] [address] [facility] [id number] [place] [address]- 4800 19 May, 2014 [facility] [place] [facility] [address] [facility] [id number] [place] [address]- 9737 18 May, 2014 [facility] [place] [facility] [address] [facility] [id number] [place] [address]- 0710 18 May, 2014 [facility] [place] [facility] [address] [facility] [id number] [place] [address]- 3189 16 May, 2014 [facility] [place] [facility] [address] [facility] [id number] [place] [address]- 9584 16 May, 2014 [facility] [place] [facility] [address] [facility] [id number] [place] [address]- 4885 13 May, 2014 [facility] [place] [facility] [address] [facility] [id number] [place] [address]- 6802 13 May, 2014 [facility] [place] [facility] [address] [facility] [id number] [place] [address]- 5224 10 May, 2014 [facility] [place] [facility] [address] [facility] [id number] [place] [address]- 4165 10 May, 2014 [facility] [place] [facility] [address] [id number] [place] [address]- 2635 Apr, [facility] [place] [facility] [address] [id number] [place] [address]- 9445 Apr, [facility] [place] [facility] [address] [id number] [place] [address]- 3085 Mar, [facility] [place] [facility] [address] [id number] [place] [address]- 8773 Mar, [facility] [place] [facility] [address] [id number] [place] [address]- 3389 Mar, [facility] [place] [facility] [address] [id number] [place] [address]- 1292 Mar, [facility] [place] [facility] [address] [id number] [place] [address]- 6255 Mar, [facility] [place] [facility] [address] [id number] [place] [address]- 0957 Mar, [facility] [place] [facility] [address] [id number] [place] [address]- 8457 Mar, [facility] [place] [facility] [address] [id number] [place] [address]- 0782 Feb, [facility] [place] [facility] [address] [id number] [place] [address]- 0731 Feb, [facility] [place] [facility] [address] [id number] [place] [address]- 2033 Feb, [facility] [place] [facility] [address] [id number] [place] [address]- 5104 Jan, [facility] [place] [facility] [address] [id number] [place] [address]- 8215 Jan, [facility] [place] [facility] [address] [id number] [place] [address]- 6553 Jan, [facility] [place] [facility] [address] [id number] [place] [address]- 7278 Jan, [facility] [place] [facility] [address] [id number] [place] [address]- 1463 Jan, [facility] [place] [facility] [address] [id number] [place] [address]- 3611 Jan, [facility] [place] [facility] [address] [id number] [place] 9759 Jan, [facility] [place] [facility] [address] [id number] [place] [address]- 1127 Jan, [facility] [place] [facility] [address] [id number] [place] [address]- 0276 Jan, [facility] [place] [facility] [address] [id number] [place] [address]- 1128 Jan, [facility] [place] [facility] [address] [id number] [place] [address]- 3136 Nov, [facility] [place] [facility] [address] [id number] [place] [address]- 3694 Nov, [facility] [place] [facility] [address] [id number] [place] [address]- 5765 Nov, [facility] [place] [facility] [address] [id number] [place] [address]- 3129 Oct, [facility] [place] [facility] [address] [id number] [place] [address]- 9436 Oct, [facility] [place] [facility] [address] [id number] [place] [address]- 3769 Oct, [facility] [place] [facility] [address] [id number] [place] [address]- 1614 Oct, [facility] [place] [facility] [address] [id number] [place] [address]- 7220 Oct, [facility] [place] [facility] [address] [id number] [place] [address]- 2395 Oct, [facility] [place] [facility] [address] [id number] [place] [address]- 3855 Oct, [facility] [place] [facility] [address] [id number] [place] [address]- 8616 Oct, [facility] [place] [facility] [address] [id number] [place] [address]- 6801 Oct, [facility] [place] [facility] [address] [id number] [place] [address]- 8424 Sep, [facility] [place] [facility] [address] [id number] [place] [address]- 2989 Sep, [facility] [place] [facility] [address] [id number] [place] [address]- 4588 Sep, [facility] [place] [facility] [address] [id number] [place] [address]- 5145 Sep, [facility] [place] [facility] [address] [id number] [place] [address]- 8854 Sep, [facility] [place] [facility] [address] [id number] [place] [address]- 3608 Sep, [facility] [place] [facility] [address] [id number] [place] [address]- 5995 Sep, [facility] [place] [facility] [address] [id number] [place] [address]- 4066 Sep, [facility] [place] [facility] [address] [id number] [place] [address]- 7892 Sep, [facility] [place] [facility] [address] [id number] [place] [address]- 0832 August, [facility] [place] [facility] [address] [id number] [place] [address]- 4593 August, [facility] [place] [facility] [address] [id number] [place] [address]- 9992 August, [facility] [place] [facility] [address] [id number] [place] [address]- 4584 August, [facility] [place] [facility] [address] [id number] [place] [address]- 3388 August, [facility] [place] [facility] [address] [id number] [place] [address]- 1117 August, [facility] [place] [facility] [address] [id number] [place] [address]- 5097 Jul, [facility] [place] [facility] [address] [id number] [place] [address]- 1717 Jul, [facility] [place] [facility] [address] [id number] [place] [address]- 0215 Jul, [facility] [place] [facility] [address] [id number] [place] [address]- 1578 Jul, [facility] [place] [facility] [address] [id number] [place] [address]- 7961 Jul, [facility] [place] [facility] [address] [id number] [place] [address]- 3789 Jul, [facility] [place] [facility] [address] [id number] [place] [address]- 6785 Jun, [facility] [place] [facility] [address] [id number] [place] [address]- 3732 Jun, [facility] [place] [facility] [address] [id number] [place] [address]- 2557 May, [facility] [place] [facility] [address] [id number] [place] [address]- 3584 May, [facility] [place] [facility] [address] [id number] [place] [address]- 3605 May, [facility] [place] [facility] [address] [id number] [place] [address]- 9621 May, [facility] [place] [facility] [address] [id number] [place] [address]- 7115 Apr, [facility] [place] [facility] [address] [id number] [place] [address]- 0382 Apr, [facility] [address] [id number] [place] [address]- 4743 18 Mar, 2013 [facility] [place] [facility] [address] [facility] [id number] [place] [address]- 4209 18 Mar, 2013 [facility] [place] [facility] [address] [facility] [id number] [place] [address]- 7862 17 Mar, 2013 [facility] [place] [facility] [address] [id number] [place] [address]- 0662 17 Mar, 2013 [facility] [address] [facility] [id number] [place] [address]- 0113 Mar, [facility] [place] [facility] [address] [facility] [id number] [place] [address]- 0980 Mar, [facility] [id number] [place] [address]- 9665 Feb, [facility] [place] [facility] [address] [facility] [id number] [place] [address]- 2834 Feb, [facility] [place] [facility] [address] [id number] [address]- 8633 14 Feb, 2013 [facility] [place] [facility] [address] [id number] [place] [address]- 6765 14 Feb, 2013 [facility] [place] [facility] [address] [facility] [id number] [place] [address]- 0421 05 Feb, 2013 [facility] [place] [facility] [address] [facility] [id number] [place] [address]- 1620 Feb, [facility] [place] [facility] [address] [facility] [id number] [place] [address]- 2442 24 Jan, 2013 [facility] [place] [facility] [address] [facility] [id number] [place] [address]- 8820 24 Jan, 2013 [facility] [place] [facility] [address] [id number] [address]- 1704 Jan, [facility] [place] [facility] [address] [id number] [place] [address]- 4250 Jan, [facility] [place] [facility] [address] [id number] [place] [address]- 9694 Jan, [facility] [place] [facility] [address] [id number] [place] [address]- 2546 Jan, [facility] [place] [facility] [address] [id number] [place] [address]- 2742 Dec, [facility] [place] [facility] [address] [id number] [place] [address]- 0054 Dec, [facility] [place] [facility] [address] [id number] [place] [address]- 2947 Nov, [facility] [place] [facility] [address] [id number] [place] [address]- 1017 Nov, [facility] [place] [facility] [address] [id number] [place] [address]- 0334 Oct, [facility] [place] [facility] [address] [id number] [place] [address]- 7493 Oct, [facility] [place] [facility] [address] [id number] [place] [address]- 3047 Oct, [facility] [place] [facility] [address] [id number] [place] [address]- 4400 Oct, [facility] [place] [facility] [address] [id number] [place] [address]- 5857 Oct, [facility] [place] [facility] [address] [id number] [place] [address]- 2967 Oct, [facility] [place] [facility] [address] [id number] [place] [address]- 2287 Sep, [facility] [place] [facility] [address] [id number] [place] [address]- 2546 Sep, [facility] [place] [facility] [address] [id number] [place] [address]- 1075 Sep, [facility] [address] [id number] [place] [address]- 9809 Sep, [facility] [address] [id number] [place] [address]- 1053 August, [facility] [address] [id number] [place] [address]- 2612 August, [facility] [address] [id number] [place] [address]- 2720 August, [facility] [address] [id number] [place] [address]- 6531 August, [facility] [address] [id number] [place] [address]- 1254 August, [facility] [address] [id number] [place] [address]- 0750 Jul, [facility] [address] [id number] [place] [address]- 3866 Jul, [facility] [address] [id number] [place] [address]- 5957 Jul, [facility] [address] [id number] [place] [address]- 1680 Jul, [facility] [address] [id number] [place] [address]- 8337 Jul, [facility] [place] [facility] [address] [id number] [place] [address]- 5091 Jul, [facility] [place] [facility] [address] [id number] [place] [address]- 2267 Jul, [facility] [place] [facility] [address] [id number] [place] [address]- 6915 Jul, [facility] [place] [facility] [address] [id number] [place] [address]- 5718 Jul, [facility] [place] [facility] [address] [id number] [place] [address]- 6056 Jul, [facility] [address] [facility] [id number] [place] [id number] Jun, [facility] [address] [id number] [address]- 4658 Jun, [facility] [address] [id number] [place] [address]- 8668 Jun, [facility] [address] [id number] [address]- 8883 Jun, [facility] [address] [facility] [id number] [place] [address]- 0136 Jun, [facility] [address] [id number] [place] [address]- 8578 May, [facility] [id number] [address] May, [facility] [address] [id number] [place] [address] May, [facility] [address] [id number] [place] [address] Apr, [facility] [address] [id number] [place] [address] Apr, [facility] [address] [id number] [place] [address] Apr, [facility] [address] [facility] [id number] [place] [address] Apr, [facility] [address] [facility] [id number] [place] [address] Apr, [facility] [address] [facility] [id number] [place] [address] Apr, [facility] [address] [id number] [address] Mar, [facility] [place] [facility] [address] [id number] [place] [address] Mar, [facility] [place] [facility] [address] [id number] [place] [address] Mar, [facility] [place] [facility] [address] [id number] [place] [address] Mar, [facility] [place] [facility] [address] [id number] [place] [address] Feb, [facility] [place] [facility] [address] [id number] [place] [address] Feb, [facility] [place] [facility] [address] [id number] [place] [address] Feb, [facility] [place] [facility] [address] [id number] [place] [address] Feb, [facility] [place] [facility] [address] [id number] [place] [address] Feb, [facility] [place] [facility] [address] [id number] [place] [address] Feb, [facility] [place] [facility] [address] [id number] [place] [address] Feb, [facility] [place] [facility] [address] [id number] [place] [address] Feb, [facility] [place] [facility] [address] [id number] [place] [address] Feb, [facility] [place] [facility] [address] [id number] [place] [address] 238[address] Feb, [facility] [place] [facility] [address] [id number] [place] [address]478 Feb, [facility] [place] [facility] [address] [id number] [place] [address] Feb, [facility] [place] [facility] [address] [id number] [place] [address] Feb, [facility] [place] [facility] [address] [id number] [place] [address] Feb, [facility] [place] [facility] [address] [id number] [place] [address] Feb, [facility] [place] [facility] [address] [facility] [id number] [place] [address] Feb, [facility] [place] [facility] [address] [id number] [place] [address] Jan, [facility] [place] [facility] [address] [id number] [place] [address] Jan, [facility] [place] [facility] [address] [id number] [place] [address] Jan, [facility] [place] [facility] [address] [id number] [place] [address] Jan, [facility] [place] [facility] [address] [id number] [place] [address] Jan, [facility] [place] [facility] [address] [id number] [place] [address] Jan, [facility] [place] [facility] [address] [id number] [place] [address] Jan, [facility] [place] [facility] [address] [id number] [place] [address] 16 Jan, 2012 [facility] [place] [facility] [address] [id number] [place] [address] 16 Jan, 2012 [facility] [place] [facility] [address] [id number] [place] [address] 15 Jan, 2012 [facility] [place] [facility] [address] [facility] [id number] [place] [address] [address] 15 Jan, 2012 [facility] [place] [facility] [address] [facility] [id number] [place] [address] Jan, [facility] [place] [facility] [address] [id number] [place] [address] 26 Sep, 2011 [facility] [address] [id number] [place] [address] 26 Sep, 2011 [facility] [place] [facility] [address] [id number] [place] [address] 2546 24 Sep, 2011 [facility] [address] [id number] [place] [address] 23 Sep, 2011 [facility] [facility] [address] [id number] [place] [address]46 22 Sep, 2011 [facility] [address] [id number] [place] [address] 21 Sep, 2011 [facility] [address] [id number] [place] [address] 2546 20 Sep, 2011 [facility] [address] [id number] [place] [address] 2546 20 Sep, 2011 [facility] [address] [id number] [place] [address] 2545 07 Sep, 2011 [facility] [address] [id number] [place] [address] 2546 06 Sep, 2011 [facility] [address] [id number] [place] [address] 254 06 Sep, 2011 [facility] [address] [id number] [place] [address] 2546 05 Sep, 2011 [facility] [address] [id number] [place] [address] 2548 23 Nov, 2011 [facility] [address] [id number] [place] [address] 2546 17 Nov, 2011 [facility] [address] [id number] [place] [address] 13 Nov, 2011 [facility] [address] [id number] [place] [address] 2542 Nov, [facility] [place] [address] [id number] [place] [address] Nov, [facility] [address] [id number] [place] [address] Nov, [facility] [address] [id number] [place] [address] Nov, [facility] [address] [id number] [place] [address] Nov, [facility] [address] [id number] [place] [address] Oct, [facility] [address] [id number] [place] [address] 47[address] Oct, [facility] [place] [address] [id number] [place] [address] Oct, [facility] [address] [id number] [place] [address] Oct, [facility] [address] [id number] [place] [address]103 Oct, [facility] [address] [id number] [place] [address] Oct, [facility] [address] [id number] [place] [address] Oct, [facility] [address] [id number] [place] [address] Sep, [facility] [address] [id number] [place] [address] Sep, [facility] [address] [id number] [place] [address] August, [facility] [address] [id number] [place] [address] August, [facility] [address] [id number] [place] [address] August, [facility] [address] [id number] [place] [address] August, [facility] [address] [id number] [place] [address] 0648 Jul, [facility] [address] [id number] [place] [address]140 Jul, [facility] [address] [id number] [place] [address] Jul, [facility] [address] [id number] [place] [address] Jul, [facility] [address] [id number] [place] [address] 8317 Jul, [facility] [address] [id number] [place] [address]995 Jul, [facility] [address] [id number] [place] [address] 8900 Jul, [facility] [address] [id number] [place] [address] 3929 Jul, [facility] [address] [id number] [place] [address]441 Jul, [facility] [address] [id number] [place] [address] 8414 23 Jun, 2011 [facility] [address] [id number] [place] [address] 8466 19 Jun, 2011 [facility] [address] [id number] [place] [address] 7069 15 Jun, 2011 [facility] [address] [id number] [place] [address]32 14 Jun, 2011 [facility] [address] [id number] [place] [address] 12 Jun, 2011 [facility] [address] [id number] [place] [address] Jun, [facility] [address] [id number] [place] [address]- 8575 Jun, [facility] [address] [id number] [place] [address]36 May, [facility] [address] [id number] [place] [address] May, [facility] [address] [id number] [place] [address] May, [facility] [address] [id number] [place] [address] 2906 May, [facility] [address] [id number] [place] [address] 59[address] May, [facility] [address] [id number] [place] [address] 8485 Apr, [facility] [address] [id number] [place] [address] Apr, [facility] [address] [id number] [place] [address] 6340 Apr, [facility] [address] [id number] [place] [address] 2037 Apr, [facility] [address] [id number] [place] [address] Apr, [facility] [address] [id number] [place] [address] Mar, [facility] [address] [id number] [place] [address] Mar, [facility] [address] [id number] [place] [address] 64[address] Mar, [facility] [address] [id number] [place] [address]- 3276 Mar, [facility] [address] [id number] [place] [address] 4919 Mar, [facility] [address] [id number] [place] [address] 5861 Mar, [facility] [address] [id number] [place] [address] 8696 Mar, [facility] [address] [id number] [place] [address] 2262 Feb, [facility] [address] [id number] [place] [address] 3448 Feb, [facility] [address] [id number] [place] [address]- 8081 Feb, [facility] [address] [id number] [place] [address]- 8491 Feb, [facility] [address] [id number] [place] [address]- 7231 Jan, [facility] [address] [id number] [place] [address]- 7086 Jan, [facility] [address] [id number] [place] [address]- 2376 Jan, [facility] [address] [id number] [place] [address] 2739 Jan, [facility] [address] [id number] [place] [address]- 8190 Nov, [facility] [address] [id number] [place] [address]- 5978 Mar, [facility] [address] [id number] [place] [address]- 7625 Mar, [facility] [address] [id number] [place] [address]- 8280 Mar, [facility] [address] [id number] [address] Mar, [facility] [address] [id number] [address] Mar, [facility] [id number] [address]46 Mar, [facility] [id number] [address] Feb, [facility] [id number] [address] Feb, [facility] [id number] [place] [address]- [address] Jan, [facility] [id number] [address] Jan, [facility] [id number] [address] Jan, IMMUNIZATIONS No Known Immunizations SOCIAL HISTORY Never Assessed REASON FOR VISIT Requesting return call PLAN OF CARE VITAL SIGNS [...] 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
--- OUTSIDE RECORDS SUMMARY | 2018-05-29 08:36 | XMS REPORT ---
Author Author ISABEL MAE [facility] Address [address] [place] [address] Care Team Providers Care Brewery Representative Name Role Phone ISABEL MAE Unavailable PROBLEMS Type Condition ICD9-CM Code [id number] Code Onset Dates Condition Status SNOMED Code Problem Long-term use of high-risk medication Z79.899 Active 155797988 Problem Abnormal chest CT R93.8 Active 884115836 Problem Low back pain M54.5 Active 386200181 Problem Generalized anxiety disorder F41.1 Active 10974669 Problem Dysthymic disorder F34.1 Active 50123154 Problem Coronary artery disease involving cabazon coronary artery of cabazon heart, angina presence unspecified I25.10 Active 0414133763552 Problem Depressed F32.9 Active 76028517 Problem Fibromyalgia M79.7 Active 825657981 Problem Hypothyroid E03.9 Active 47001555 Problem Essential (primary) hypertension I10 Active 63953297 Problem Insomnia G47.00 Active 570763119 Problem Vitamin D deficiency E55.9 Active 46417305 Problem Anemia in chronic kidney disease D63.1 Active 457590735474557 Problem Chronic kidney disease, unspecified N18.9 Active 259913977 Problem Body mass index (BMI) of 40.0-44.9 in adult Z68.41 Active 850306813 Problem Stage 3 chronic kidney disease N18.3 Active 832816610 Problem Restless leg G25.81 Active 69917764 Problem Palpitations R00.2 Active 73255935 Problem Asthma J45.909 Active 873668556 Problem Primary osteoarthritis of left knee M17.12 Active 755652410 Problem Bipolar disorder, current episode manic without psychotic features F31.10 Active 987498503 Problem Mood disorder F39 Active 84069385 Problem Degenerative tear of medial meniscus of left knee M23.204 Active 015549997 Problem History of colon polyps Z86.010 Active 351539295 Problem Asthma with acute exacerbation in adult J45.901 Active 356386538 Problem Chronic kidney disease, stage 4 (severe) N18.4 Active 233435355 Problem Functional diarrhea K59.1 Active 03222152 Problem Hypokalemia E87.6 Active 92540823 Problem Mixed stress and urge urinary incontinence N39.46 Active 611146511 Problem History of anemia Z86.2 Active 532576303 Problem Other seasonal allergic rhinitis J30.2 Active 699177994 ALLERGIES No Information ENCOUNTERS Encounter Location Date Diagnosis [place] [id number] [place] [address] 08808- 3529 Sep, [facility] [address] 38275- 6411 August, Fibromyalgia M79.7 [place] [address] 20116- 4952 August, [place] [address] 99530- 8902 August, [facility] [address] 18502- 1169 August, Abnormal chest CT R93.8 [place] [address] 50174- 9211 August, Generalized anxiety disorder F41.1 and Major depressive disorder, recurrent episode with anxious distress F33.9 [place] [id number] [place] [address] 05557- 1547 August, Ab[address] chest [address] R93.8 [facility] [id number] [place] [address] 05563- 5437 Jul, [facility] [id number] [place] [address] 12746- 1668 Jul, Chronic kidney disease, stage 4 (severe) N18.4 [facility] [id number] [place] [address] 95911- 5675 Jul, [facility] [address] 24429- 1784 Jul, Restless leg G25.81 ; Mixed stress and urge urinary incontinence N39.46 and Fibromyalgia M79.7 [facility] [id number] [place] [address] 48023- 2993 Jul, Chronic kidney disease, stage 4 (severe) N18.4 [facility] [id number] [place] [address] 31670- 6501 Jun, Orthostatic hypotension I95.1 ; Chronic kidney disease, stage 4 (severe) N18.4 ; Chest wall discomfort R07.89 and Body mass index (BMI) of 40.0-44.9 in adult Z68.41 [place] [id number] [place] [address] 98305- 8500 Jun, [place] [id number] [place] [address] 67551- 6816 Jun, Orthostatic hypotension I95.1 [facility] [id number] [place] [address] 43860- 2082 Jun, [facility] [id number] [place] [address] 33768 -9179 Jun, Orthostatic hypotension I95.1 ; Dysuria R30.0 and Acute cystitis without hematuria N30.00 [facility] [id number] [place] [address] 87232- 3308 Jun, [facility] [id number] [place] [address] 91074- 3772 Jun, Chronic kidney disease, stage 4 (severe) N18.4 [facility] [id number] [place] [address] 01207- 0886 Jun, Fibromyalgia M79.7 [facility] [id number] [place] [address] 02902- 3993 Jun, [facility] [id number] [place] [address] 96220- 6047 Jun, [facility] [id number] [place] [address] 82832- [address] May, [address] R93.8 and Stage 3 chronic kidney disease N18.3 [facility] [id number] [place] [address] 31668- 2724 May, Chronic kidney disease, stage 4 (severe) N18.4 [facility] [id number] [place] [address] 96265- 9300 May, Chronic kidney disease, stage 4 (severe) N18.4 [facility] [id number] [place] [address] 23083- [address] May, [address] R93.8 [facility] [id number] [place] [address] 33861- 7793 May, [place] [id number] [place] [address] 93178- 9527 May, [place] [id number] [place] [address] 55467- 5482 May, Generalized anxiety disorder F41.1 and Major depressive disorder, recurrent episode with anxious distress F33.9 [place] [id number] [place] [address] 13576- 6576 May, Mood disorder F39 [place] [id number] [place] [address] 92194- 6903 Apr, [place] [id number] [place] [address] 91496- 1637 Apr, Infected skin lesion L08.9 and Muscle strain of right shoulder region, initial encounter S46.911A [place] [id number] [place] [address] 20471- 7412 Apr, Generalized anxiety disorder F41.1 and Major depressive disorder, recurrent episode with anxious distress F33.9 [place] [id number] [place] [address] 51741- 9005 Apr, [facility] [id number] [place] [address] 79018- 3341 Apr, Recent urinary tract infection Z87.440 and Hypothyroid E03.9 [facility] [id number] [place] [address] 44977- 1854 Apr, Generalized anxiety disorder F41.1 and Major depressive disorder, recurrent episode with anxious distress F33.9 [facility] [id number] [place] [address] 48754- 9782 Apr, Recent urinary tract infection Z87.440 [place] [id number] [place] [address] 98068- 6360 Mar, [facility] [id number] [place] [address] 19888 -9022 Mar, Dysuria R30.0 ; Acute cystitis without hematuria N30.00 and BMI 40.0-44.9, adult Z68.41 [place] [id number] [place] [address] 54717- 6419 14 Mar, 2017 [place] [id number] [place] [address] 44319- 8797 Mar, [place] [id number] [place] [address] 98891- 1314 07 Mar, 2017 Generalized anxiety disorder F41.1 and Major depressive disorder, recurrent episode with anxious distress F33.9 [facility] [id number] [place] [address] 31086- 9283 Feb, Conjunctivitis, bacterial H10.9 [facility] [id number] [place] [address] 13748- 9733 Feb, [facility] [id number] [place] [address] 64537 -9768 15 Feb, 2017 Conjunctivitis, bacterial H10.9 [facility] [id number] [place] [address] 53734- 0607 Feb, [facility] [id number] [place] [address] 79091 -2419 Feb, Dysuria R30.0 ; Acute cystitis N30.00 and BMI 40.0-44.9, adult Z68.41 [facility] [id number] [place] [address] 15608- 0100 Feb, [facility] [address] 95238- 8546 Feb, Generalized anxiety disorder F41.1 and Major depressive disorder, recurrent episode with anxious distress F33.9 [place] [address] 33099- 3941 Feb, Mood disorder F39 and BMI 40.0-44.9, adult Z68.41 [facility] [address] 53993- 0285 Jan, [facility] [address] 08695- 5255 Jan, [facility] [address] 21706- 4659 Jan, Hypothyroid E03.9 [facility] [id number] [place] [address] 22124- 8018 Jan, [facility] [id number] [place] [address] 89873- 4566 Jan, Chronic kidney disease, unspecified N18.9 ; Hypokalemia E87.6 ; Essential (primary) hypertension I10 ; Fibromyalgia M79.7 ; Coronary artery disease involving cabazon coronary artery of cabazon heart, angina presence unspecified I25.10 ; Hypothyroid E03.9 and Encounter for immunization Z23 [facility] [id number] [place] [address] 79063- 8519 04 Jan, 2017 Hypothyroid E03.9 [facility] [address] 85432- 9707 Jan, [facility] [address] [address]- 7751 28 Dec, 2016 Vitamin D deficiency E55.9 [facility] [id number] [place] [address] 74666- 3827 28 Dec, 2016 Primary osteoarthritis of left knee M17.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 [facility] [id number] [place] [address] 63607- 4266 19 Dec, 2016 Fibromyalgia M79.7 [facility] [id number] [place] [address] 80068- 5689 18 Dec, 2016 Mood disorder F39 [place] [id number] [place] [address] 82350- 2375 13 Dec, 2016 [place] [id number] [place] [address] 87960- 4111 13 Dec, 2016 Generalized anxiety disorder F41.1 and Major depressive disorder, recurrent episode with anxious distress F33.9 [facility] [id number] [place] [address] 52379- 9317 11 Dec, 2016 [place] [id number] [place] [address] 41971- 8469 08 Dec, 2016 Streptococcal meningitis G00.2 [facility] [id number] [place] [address] 35398- 4924 07 Dec, 2016 Streptococcal meningitis G00.2 [facility] [id number] [address]- 9449 07 Dec, 2016 [facility] [id number] [place] [address] 45414- 0731 06 Dec, 2016 Streptococcal meningitis G00.2 [facility] [id number] [place] [address] 56077- 1413 Dec, [facility] [id number] [place] [address] 73374- 7982 Dec, Major depressive disorder, recurrent episode with anxious distress F33.9 [facility] [id number] [place] [address] 12341- 9291 Nov, Fever, unspecified fever cause R50.9 [facility] [id number] [place] [address] 12860- 3648 Nov, [facility] [id number] [place] [address] 48902- 9989 Nov, Hypothyroid E03.9 [facility] [id number] [place] [address] 23657- 6153 Nov, Generalized anxiety disorder F41.1 and Major depressive disorder, recurrent episode with anxious distress F33.9 [facility] [id number] [place] [address] 95965- 9980 Nov, [facility] [address] [id number] Oct, Dental examination Z01.20 [facility] [id number] [place] [address] 96307- 5471 Oct, Generalized anxiety disorder F41.1 and Major depressive disorder, recurrent episode with anxious distress F33.9 [facility] [id number] [place] [address] 81766- 4219 Oct, Chronic kidney disease, stage 4 (severe) N18.4 [facility] [id number] [place] [address] 20733- 2457 Oct, [facility] [id number] [place] [address] 78218- 9420 Oct, Fibromyalgia M79.7 [facility] [id number] [place] [address] 99252- 6260 Oct, [facility] [id number] [place] [address] 31077- 3657 Oct, Generalized anxiety disorder F41.1 ; Major depressive disorder, recurrent episode with anxious distress F33.9 and Bipolar disorder, current episode manic without psychotic features F31.10 [place] [address] [address]- 5364 Sep, [place] [id number] [place] [address] 10661- 4690 Sep, [place] [id number] [place] [address] 21807- 7629 15 Sep, 2016 Vitamin D deficiency E55.9 [place] [id number] [place] [address] 01689- 7597 14 Sep, 2016 Vitamin D deficiency E55.9 [place] [id number] [place] [address] 02466- 5697 Sep, [place] [id number] [place] [address] 95845- 5857 Sep, Chronic kidney disease, stage 4 (severe) N18.4 ; Hypothyroid E03.9 ; Restless leg G25.81 ; Fibromyalgia M79.7 ; Essential ( primary) hypertension I10 ; Vitamin D deficiency E55.9 ; Dyspepsia R10.13 ; Anemia in chronic kidney disease D63.1 ; Chronic kidney disease, unspecified N18.9 ; Coronary artery disease involving cabazon coronary artery of cabazon heart , angina presence unspecified I25.10 ; Screening breast examination Z12.39 and Low back pain M54.5 [place] [id number] [place] [address] 05418- 1016 August, Generalized anxiety disorder F41.1 and Major depressive disorder, recurrent episode with anxious distress F33.9 [place] [address] [address]- 1188 August, Generalized anxiety disorder F41.1 and Major depressive disorder, recurrent episode with anxious distress F33.9 [place] [id number] [place] [address] 94986- 7052 August, Fibromyalgia M79.7 [place] [id number] [place] [address] 87659- 5686 Jul, Generalized anxiety disorder F41.1 and Major depressive disorder, recurrent episode with anxious distress F33.9 [place] [id number] [place] [address] 33110- 7182 Jul, Fibromyalgia M79.7 [place] [id number] [place] [address] 84685- 7558 Jul, Generalized anxiety disorder F41.1 [place] [id number] [place] [address] 25291- 9368 May, [place] [id number] [place] [address] 96706- 3546 May, Hypothyroid E03.9 [place] [id number] [place] [address] 91146- 1877 May, Chronic kidney disease, stage 4 (severe) N18.4 ; Hypothyroid E03.9 ; Restless leg G25.81 ; Fibromyalgia M79.7 ; Essential ( primary) hypertension I10 ; Vitamin D deficiency E55.9 ; Dyspepsia R10.13 ; Acute non-recurrent maxillary sinusitis J01.00 ; Anemia in chronic kidney disease D63.1 ; Chronic kidney disease, unspecified N18.9 and Coronary artery disease involving cabazon coronary artery of cabazon heart, angina presence unspecified I25.10 [place] [id number] [place] [address] 84691- 9162 May, Vitamin D deficiency, unspecified E55.9 [place] [id number] [place] [address] 85711- 1517 May, Generalized anxiety disorder F41.1 and Major depressive disorder, recurrent episode with anxious distress F33.9 [place] [id number] [place] [address] 86087- 4032 Apr, Pain in right knee M25.561 and Pain in left knee M25.562 [place] [id number] [place] [address] 97862- 8093 Apr, [facility] [address] [address]- 8750 Apr, [facility] [id number] [place] [address] 12876- 0803 Apr, [facility] [id number] [place] [address] 07653- 5741 Mar, Generalized anxiety disorder F41.1 and Major depressive disorder, recurrent episode with anxious distress F33.9 [facility] [id number] [place] [address] 17685- 9681 Mar, Generalized anxiety disorder F41.1 and Major depressive disorder, recurrent episode with anxious distress F33.9 [facility] [id number] [place] [address] 25919- 3094 Mar, [facility] [id number] [place] [address] 70754- 1088 Mar, [facility] [id number] [place] [address] 79173- 5514 Mar, [facility] [id number] [place] [address] 82059- 0922 Mar, Asthma J45.909 and Fibromyalgia M79.7 [facility] [id number] [place] [address] 83739- 2560 Mar, Chronic kidney disease, stage 4 (severe) N18.4 ; Vitamin D deficiency E55.9 and Essential (primary) hypertension I10 [facility] [id number] [place] [address] 41755- 3458 Feb, [facility] [id number] [place] [address] 68084- 1509 Feb, Dysuria R30.0 ; Mixed stress and urge urinary incontinence N39.46 ; Fibromyalgia M79.7 and Chronic kidney disease, stage IV (severe) N18.4 [facility] [id number] [place] [address] 50636- 8424 Feb, Chronic kidney disease, stage 4 (severe) N18.4 [facility] [id number] [place] [address] 34229- 0625 Feb, Chronic kidney disease, stage 4 (severe) N18.4 [facility] [id number] [place] [address] 17501- 4530 Feb, [facility] [id number] [place] [address] 61135- 1306 Feb, Vitamin D deficiency, unspecified E55.9 [facility] [id number] [place] [address] 38241- 3456 Jan, [facility] [id number] [place] [address] 66333- 4074 Jan, [facility] [id number] [place] [address] 13805- 9619 Dec, [facility] [id number] [place] [address] 04709- 8811 Dec, Chronic kidney disease, stage 4 (severe) N18.4 [facility] [id number] [place] [address] 14973- 1923 Dec, Dysthymic disorder F34.1 and Generalized anxiety disorder F41.1 [place] [id number] [place] [address] 84259- 0758 Dec, [facility] [id number] [place] [address] 03339- 6177 Dec, [facility] [id number] [place] [address] 30628- 4648 08 Dec, 2015 Dysthymic disorder F34.1 and Generalized anxiety disorder F41.1 [facility] [id number] [place] [address] 55278- 7058 08 Dec, 2015 Dysuria R30.0 ; Chronic kidney disease, stage 4 (severe) N18.4 ; Hypertension I10 ; Dyspepsia R10.13 ; Yeast dermatitis B37.2 ; Palpitations R00.2 ; Hypothyroid E03.9 ; Functional diarrhea K59.1 and Other seasonal allergic rhinitis J30.2 [facility] [id number] [place] [address] 21253 -8268 Dec, [facility] [address] 14466 -0201 Nov, Dysuria R30.0 and Stress incontinence N39.3 [place] [address] 95332- 8236 Nov, [place] [address] 36179- 9964 Nov, [place] [address] 61720- 1092 Nov, Osteoarthritis of knees, bilateral M17.0 [place] [address] 34715- 3268 Nov, Dysthymic disorder F34.1 and Generalized anxiety disorder F41.1 [place] [address] 70643- 0490 Nov, [place] [id number] [place] [address] 35507- 8761 Nov, [place] [address] 46587- 07[address] Nov, Urgency of urination R39.15 [place] [address] [address] Nov, [place] [address] [address] Nov, Chronic kidney disease, stage 4 (severe) N18.4 [place] [address] [address] Oct, Hypertension I10 ; Coronary artery disease involving cabazon coronary artery of cabazon heart, angina presence unspecified I25.10 ; Palpitations R00.2 ; Hypothyroid E03.9 ; Right foot pain M79.671 ; Functional diarrhea K59.1 and Other seasonal allergic rhinitis J30.2 [place] [address] [address] [place] [id number] [place] [address] 238[address] Oct, Dysthymic disorder F34.1 and Generalized anxiety disorder F41.1 [place] [address] [address] Sep, [place] [address] [address] [place] [id number] [place] [address]- [address] Sep, [place] [address] [address] [place] [id number] [place] [address] 49[address]- [address] Sep, [place] [address] [address] Sep, [place] [address] [address] [place] [id number] [place] [address] 24176- [address] Sep, [place] [address] [address] [place] [id number] [place] [address] 75752- [address] Sep, Dysthymic disorder F34.1 and Generalized anxiety disorder F41.1 [place] [address] [address] [place] [id number] [place] [address]- 379[address] Sep, Asthma with acute exacerbation in adult J45.901 ; Dysuria R30.0 ; Chronic kidney disease, stage 4 (severe) N18.4 and History of anemia Z86.2 [place] [address] [address] [place] [id number] [place] [address] 60435- 4774 Sep, Generalized anxiety disorder F41.1 and Dysthymic disorder F34.1 [place] [address] [address] [place] [id number] [place] [address] 09834- [address] August, Screening breast examination Z12.39 and Acute recurrent maxillary sinusitis J01.01 [place] [address] [address] August, Osteoarthritis of knees, bilateral M17.0 [place] [address] [address] [place] [id number] [place] [address] 87[address]- [address] August, Chronic kidney disease, stage 4 (severe) N18.4 ; Acute non- recurrent maxillary sinusitis J01.00 ; Urinary problem R39.89 ; Bowel habit changes R19.4 ; Functional diarrhea K59.1 and History of colon polyps Z86.010 [place] [address] [address] [place] [id number] [place] [address] 80354- 7743 Jul, Dysthymic disorder F34.1 and Generalized anxiety disorder F41.1 [place] [address] 58684- 2517 Jul, [place] [address] [place] [id number] [place] [address] 74679- 1628 Jul, Dysthymic disorder F34.1 ; Generalized anxiety disorder F41.1 and intermediate frame tender use of drug Z79.899 [place] [address] [place] [id number] [place] [address] 76068- 3211 Jul, [place] [address] [place] [id number] [place] [address] 67011- 6014 Jun, [place] [address] [place] [id number] [place] [address] 46638- 1322 Jun, [place] [address] [place] [id number] [place] [address] 11981- 2109 May, [place] [address] [place] [id number] [place] [address] 56783- 2740 May, Dysthymic disorder F34.1 and Generalized anxiety disorder F41.1 [place] [address] [place] [id number] [place] [address] 23131- 1169 Apr, Kidney disease N28.9 [place] [address] [place] [id number] [place] [address] 30854- 0127 Apr, Generalized anxiety disorder F41.1 and Dysthymic disorder F34.1 [place] [address] [place] [id number] [place] [address] 79107- 7621 Apr, Chronic kidney disease, stage 4 (severe) N18.4 [place] [address] [place] [id number] [place] [address] 80248- 1138 Apr, Generalized anxiety disorder F41.1 ; Major depression, recurrent F33.9 and Sleep disturbance G47.9 [place] [address] 07562- 8606 Mar, Generalized anxiety disorder F41.1 and Dysthymic disorder F34.1 [place] [address] 13250- 9953 Mar, Generalized anxiety disorder F41.1 ; Dysthymic disorder F34.1 and Insomnia G47.[address] 57472- 5173 Mar, [place] [address] 51310- 6258 Mar, [address] 77068- 9215 Mar, Osteoarthritis of knees, bilateral M17.[address] 71683- 6015 Mar, Hypertension I10 ; Hypothyroid E03.9 ; Dysthymic disorder F34.1 ; Chronic kidney disease, stage 4 (severe) N18.4 and Nausea & vomiting R11.2 [place] [address] [place] [id number] [place] [address] 52647- 8636 Mar, Generalized anxiety disorder F41.1 ; Dysthymic disorder F34.1 and Insomnia G47.00 [place] [address] [place] [id number] [place] [address] 20646- 2133 Mar, Dehydration E86.0 ; Chronic kidney disease, stage 4 (severe ) N18.4 and Nausea & vomiting R11.2 [facility] [address] [address] Mar, Gastroenteritis K52.9 [facility] [address] [place] [id number] [place] [address] 65249- 8850 Mar, [facility] [address] [place] [id number] [place] [address] 12405- 1108 Mar, [facility] [address] 42251- 8138 Feb, Dysthymic disorder F34.1 and Generalized anxiety disorder F41.1 [place] [address] 81019- 3481 Jan, UTI (urinary tract infection) N39.0 ; Asthma J45.909 ; Coronary artery disease involving cabazon coronary artery of cabazon heart, angina presence unspecified I25.10 ; Hypertension I10 ; Hypothyroid E03.9 ; Vitamin D deficiency E55.9 ; Insomnia G47.00 ; Palpitations R00.2 ; Depressed F32.9 ; Restless leg G25.81 and Anxiety F41.9 [place] [address] [place] [id number] [place] [address] 82938- 0147 Jan, Dysthymic disorder F34.1 and Generalized anxiety disorder F41.1 [place] [address] [place] [id number] [place] [address] 30943- 8431 Jan, [place] [address] [place] [id number] [place] [address] 29363- 1182 Dec, [place] [address] [place] [id number] [place] [address] 79342- 9756 Dec, Alkalosis 276.3 ; Chronic kidney disease, 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.4 ; Hyperpotassemia 276.7 ; Secondary hyperparathyroidism, renal 588.81 ; Proteinuria 791.0 ; Unspecified vitamin D deficiency 268.9 ; Anemia in chronic kidney disease 285.21 ; Other and unspecified hyperlipidemia 272.4 ; Hypertension, essential, benign 401.1 and Chronic kidney disease (CKD), stage III (moderate) 585.3 [place] [address] [address]- 0461 Dec, [place] [id number] [place] [address] 88156- 0289 Dec, Depressive disorder, not elsewhere classified 311 and Generalized anxiety disorder 300.02 [place] [address] [place] [id number] [place] [address] 76862- 7844 Dec, [place] [address] [place] [id number] [place] [address] 16643- 3022 Dec, [place] [id number] [place] [address] 57672- 3091 Nov, Depressive disorder, not elsewhere classified 311 and Generalized anxiety disorder 300.02 [place] [id number] [place] [address] 77702- 1878 Nov, Arthritis of both knees 716.96 [place] [id number] [place] [address] 75503- 2648 Nov, PAF (paroxysmal atrial fibrillation) 427.31 ; CAD (coronary artery disease) 414.00 ; Chest pain 786.50 and Chronic kidney disease (CKD) stage G4/A1, severely decreased glomerular filtration rate (GFR) between 15-29 mL/min/1.73 square meter and albuminuria creatinine ratio less than 30 mg/g 585.4 [id number] [place] [address] 23579- 1490 Oct, Coronary atherosclerosis of unspecified type of vessel, cabazon or graft 414.00 ; Chronic kidney disease, 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.4 ; Hypertension 401.9 and Edema 782.3 [place] [id number] [place] [address] 86166- 0294 Oct, Depressive disorder, not elsewhere classified 311 and Generalized anxiety disorder 300.02 [id number] [place] [address] 42683- 8044 Oct, Depressive disorder, not elsewhere classified 311 and Generalized anxiety disorder 300.02 [facility] [id number] [place] [address] 93952- 5745 Oct, [facility] [address] [place] [id number] [place] [address] 47964- 7252 Oct, [facility] [address] [place] [id number] [place] [address] 65868- 2682 Sep, [facility] [address] 99540- 6738 Sep, Chronic kidney disease, 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.4 [facility] [address] 27346- 3447 Sep, [facility] [address] [place] [id number] [place] [address] 19070- 2820 Sep, Coronary atherosclerosis of unspecified type of vessel, cabazon or graft 414.00 ; Hypertension 401.9 ; Edema 782.3 and Hypothyroidism 244.9 [facility] [address] [place] [id number] [place] [address] 35538- 1743 Sep, Coronary atherosclerosis of unspecified type of vessel, cabazon or graft 414.00 ; Hypertension 401.9 ; Fibromyalgia 729.1 ; Edema 782.3 ; Hypothyroidism 244.9 and Anemia 285.9 [facility] [address] [place] [id number] [place] [address] 50442- 0343 Sep, Anxiety disorder, unspecified 300.00 and Depressive disorder , not elsewhere classified 311 [facility] [address] [place] [id number] [place] [address] 41767- 7719 Sep, [facility] [address] [place] [id number] [place] [address] 09307- 6797 August, Generalized anxiety disorder 300.02 [facility] [address] [place] [id number] [place] [address] 32862- 5304 August, Closed fracture of lateral malleolus 824.2 [facility] [address] [place] [id number] [place] [address] 52087- 3702 14 Jul, 2014 [facility] [place] [facility] [address] [id number] [place] [address]- 6649 Jul, [facility] [place] [facility] [address] [id number] [place] [address]- 9318 Jun, [facility] [place] [facility] [address] [facility] [id number] [place] [address]- 1353 Jun, [facility] [place] [facility] [address] [id number] [place] [address]- 1764 Jun, [facility] [place] [facility] [address] [id number] [place] [address]- 4190 Jun, [facility] [place] [facility] [address] [facility] [id number] [place] [address]- 3469 Jun, [facility] [place] [facility] [address] [facility] [id number] [place] [address]- 7642 Jun, [facility] [place] [facility] [address] [facility] [id number] [address]- 4992 May, [facility] [place] [facility] [address] [facility] [id number] [place] [address]- 4814 May, 2014 [facility] [place] [facility] [address] [facility] [id number], [place] [address]- 5756 18 May, 2014 [facility] [place] [facility] [address] [facility] [id number], [place] [address]- 4050 18 May, 2014 [facility] [place] [facility] [address] [facility] [id number], [place] [address]- 3629 16 May, 2014 [facility] [place] [facility] [address] [facility] [id number] [place] [address]- 1289 16 May, 2014 [facility] [place] [facility] [address] [facility] [id number], [place] [address]- 7550 13 May, 2014 [facility] [place] [facility] [address] [facility] [id number] 8664 13 May, 2014 [facility] [place] [facility] [address] [id number] [place] [address]- 7022 May, 2014 [facility] [place] [facility] [address] [id number] [place] [address]- 7266 May, [facility] [place] [facility] [address] [id number] [place] [address]- 4176 Apr, [facility] [place] [facility] [address] [id number] [place] [address]- 7026 Apr, [facility] [place] [facility] [address] [id number] [place] [address]- 7229 Mar, [facility] [place] [facility] [address] [id number] [place] [address]- 9105 Mar, [facility] [place] [facility] [address] [id number] [place] [address]- 6853 Mar, [facility] [place] [facility] [address] [id number] [place] [address]- 9516 Mar, [facility] [place] [facility] [address] [id number] [place] [address]- 7133 Mar, [facility] [place] [facility] [address] [id number] [place] [address]- 9802 Mar, [facility] [place] [facility] [address] [id number] [place] [address]- 8969 Mar, [facility] [place] [facility] [address] [id number] [place] [address]- 3672 Feb, [facility] [place] [facility] [address] [id number] [place] [address]- 4688 Feb, [facility] [place] [facility] [address] [id number] [place] [address]- 7230 Feb, [facility] [place] [facility] [address] [id number] [place] 4251 Jan, [facility] [place] [facility] [address] [id number] [place] [address]- 5709 Jan, [facility] [place] [facility] [address] [id number] [place] [address]- 9361 Jan, [facility] [place] [facility] [address] [id number] [place] [address]- 7395 Jan, [facility] [place] [facility] [address] [id number] [place] [address]- 2299 Jan, [facility] [place] [facility] [address] [id number] [place] [address]- 1742 Jan, [facility] [place] [facility] [address] [id number] [place] [address]- 7118 Jan, [facility] [place] [facility] [address] [id number] [place] [address]- 6956 Jan, [facility] [place] [facility] [address] [id number] [place] [address]- 2002 Jan, [facility] [place] [facility] [address] [id number] [place] [address]- 6879 Jan, [facility] [place] [facility] [address] [id number] [place] [address]- 8561 Nov, [facility] [place] [facility] [address] [id number] [place] [address]- 5948 Nov, [facility] [place] [facility] [address] [id number] [place] [address]- 9174 Nov, [facility] [place] [facility] [address] [id number] [place] [address]- 4252 Oct, [facility] [place] [facility] [address] [id number] [place] [address]- 1108 Oct, [facility] [place] [facility] [address] [id number] [place]- 1494 Oct, [facility] [place] [facility] [address] [id number] [place] [address]- 8056 Oct, [facility] [place] [facility] [address] [id number] [place] [address]- 9239 Oct, [facility] [place] [facility] [address] [id number] [place] [address]- 0411 Oct, [facility] [place] [facility] [address] [id number] [place] [address]- 8266 Oct, [facility] [place] [facility] [address] [id number] [place] [address]- 6909 Oct, [facility] [place] [facility] [address] [id number] [place] [address]- 7957 Oct, [facility] [place] [facility] [address] [id number] [place] [address]- 1708 Sep, [facility] [place] [facility] [address] [id number] [place] [address]- 3748 Sep, [facility] [place] [facility] [address] [id number] [place] [address]- 8302 Sep, [facility] [place] [facility] [address] [id number] [place] [address]- 7001 Sep, [facility] [place] [facility] [address] [id number] [place] [address]- 5706 Sep, [facility] [place] [facility] [address] [id number] [place] [address]- 4407 Sep, [facility] [place] [facility] [address] [id number] [place] [address]- 6889 Sep, [facility] [place] [facility] [address] [id number] [place] [address]- 5940 Sep, [facility] [place] [facility] [address] [id number] [place] [address]- 9376 Sep, [facility] [place] [facility] [address] [id number] [place] [address]- 4554 August, [facility] [place] [facility] [address] [id number] [place] [address]- 6890 August, [facility] [place] [facility] [address] [id number] [place] [address]- 9366 August, [facility] [place] [facility] [address] [id number] [place] [address]- 4215 August, [facility] [place] [facility] [address] [id number] [place] [address]- 9476 August, [facility] [place] [facility] [address] [id number] [place] [address]- 4244 August, [facility] [place] [facility] [address] [id number] [place] [address]- 7017 Jul, [facility] [place] [facility] [address] [id number] [place] [address]- 4853 Jul, [facility] [place] [facility] [address] [id number] [place] [address]- 6509 Jul, [facility] [place] [facility] [address] [id number] [place] [address]- 7245 Jul, [facility] [place] [facility] [address] [id number] [place] [address]- 5947 Jul, [facility] [place] [facility] [address] [id number] [place] [address]- 7724 Jul, [facility] [place] [facility] [address] [id number] [place] [address]- 5019 Jun, [facility] [place] [facility] [address] [id number] [place] [address]- 8681 Jun, [facility] [place] [facility] [address] [id number] [place] [address]- 6739 May, [facility] [place] [facility] [address] [id number] [place] [address]- 5045 May, [facility] [place] [facility] [address] [id number] [place] [address]- 8254 May, [facility] [place] [facility] [address] [id number] [place] [address]- 9597 10 May, 2013 [facility] [address] [id number] [place] [address]- 1338 Apr, [facility] [place] [facility] [address] [id number] [place] [address]- 7490 Apr, [facility] [address] [id number] [place] [address]- 4345 18 Mar, 2013 [facility] [place] [facility] [address] [id number] [place] [address]- 6677 18 Mar, 2013 [facility] [address] [id number] [place] [address]- 7105 Mar, [facility] [place] [facility] [address] [id number] [place] [address]- 2203 Mar, [facility] [address] [facility] [id number] [place] [address]- 0355 Mar, [facility] [address] [id number] [place] [address]- 6086 Mar, [facility] [place] [facility] [address] [id number] [place] [address]- 0176 Feb, [facility] [address] [facility] [id number] [place] [address]- 7119 Feb, [facility] [place] [facility] [address] [id number] [place] [address]- 0295 14 Feb, 2013 [facility] [place] [facility] [address] [id number] [place] [address]- 2910 14 Feb, 2013 [facility] [place] [facility] [address] [id number] [place] 9863 05 Feb, 2013 [facility] [place] [facility] [address] [facility] [id number] [place] [address]- 1874 05 Feb, 2013 [facility] [place] [facility] [address] [id number] [place] [address]- 4285 Jan, [facility] [place] [facility] [address] [id number] [place] [address]- 5921 Jan, [facility] [place] [facility] [address] [id number] [place] [address]- 5010 Jan, [facility] [place] [facility] [address] [id number] [place] [address]- 2725 Jan, [facility] [place] [facility] [address] [id number] [place] [address]- 9915 Jan, [facility] [place] [facility] [address] [id number] [place] [address]- 9600 Jan, [facility] [place] [facility] [address] [id number] [place] [address]- 0632 Dec, [facility] [place] [facility] [address] [id number] [place] [address]- 4871 Dec, [facility] [place] [facility] [address] [id number] [place] [address]- 2774 Nov, [facility] [place] [facility] [address] [id number] [place] [address]- 3249 Nov, [facility] [place] [facility] [address] [id number] [place] [address]- 3553 Oct, [facility] [place] [facility] [address] [id number] [place] [address]- 1827 Oct, [facility] [place] [facility] [address] [id number] [place] [address]- 6350 Oct, [facility] [place] [facility] [address] [id number] [place] [address]- 6607 Oct, [facility] [place] [facility] [address] [id number] [place] [address]- 6432 Oct, [facility] [place] [facility] [address] [id number] [place] [address]- 2548 Oct, [facility] [place] [facility] [address] [id number] [place] [address]- 0451 Sep, [facility] [address] [id number] [place] [address]- 8395 Sep, [facility] [place] [facility] [address] [id number] [place] [address]- 5292 Sep, [facility] [address] [id number] [place] [address]- 3646 Sep, [facility] [place] [facility] [address] [id number] [place] [address]- 3104 August, [facility] [address] [id number] [place] [address]- 0882 August, [facility] [address] [id number] [place] [address]- 0129 August, [facility] [address] [id number] [place] [address]- 3088 August, [facility] [address] [id number] [place] [address]- 1626 August, [facility] [address] [id number] [place] [address]- 9093 Jul, [facility] [place] [facility] [address] [id number] [place] [address]- 1236 Jul, [facility] [address] [id number] [place] [address]- 8357 Jul, [facility] [place] [facility] [address] [id number] [place] [address] Jul, [facility] [place] [facility] [address] [id number] [place] [address] Jul, [facility] [place] [facility] [address] [id number] [place] [address] Jul, [facility] [place] [facility] [address] [id number] [place] [address] Jul, [facility] [place] [facility] [address] [id number] [place] [address] Jul, [facility] [address] [facility] [id number] [place] [address] Jul, [facility] [address] [facility] [id number] [place] [address] Jul, [facility] [address] [facility] [id number] [id number] Jun, [facility] [address] [facility] [id number] [place] [address] Jun, [facility] [address] [facility] [id number] [place] [address] Jun, [facility] [address] [facility] [id number] [place] [address] Jun, [facility] [address] [id number] [place] [address] Jun, [facility] [address] [id number] [place] [address] May, [facility] [address] [id number] [place] [address] May, [facility] [address] [facility] [id number], [place] [address] May, [facility] [address] [facility] [id number] [place] [address] Apr, [facility] [address] [facility] [id number] [place] [address] Apr, [facility] [address] [facility] [id number] [place] [address] Apr, [facility] [address] [facility] [id number] [place] [address] Apr, [facility] [address] [facility] [id number], [place] [address] Apr, [facility] [place] [facility] [address] [id number] [place] [address] Apr, [facility] [place] [facility] [address] [id number] [place] [address] Mar, [facility] [place] [facility] [address] [id number] [place] [address] Mar, [facility] [place] [facility] [address] [id number] [place] [address] Mar, [facility] [place] [facility] [address] [id number] [place] [address] Mar, [facility] [place] [facility] [address] [id number] [place] [address] Feb, [facility] [place] [facility] [address] [id number] [place] [address] Feb, [facility] [place] [facility] [address] [id number] [place] [address] Feb, [facility] [place] [facility] [address] [id number] [place] [address] Feb, [facility] [place] [facility] [address] [id number], [place] [address] Feb, [facility] [place] [facility] [address] [facility] [id number], [place] [address] Feb, [facility] [place] [facility] [address] [id number], [place] [address] Feb, [facility] [place] [facility] [address] [id number], [place] [address] Feb, [facility] [place] [facility] [address] [id number], [place] [address] Feb, [facility] [place] [facility] [address] [facility] [id number], [place] [address] Feb, [facility] [place] [facility] [address] [id number], [place] [address] Feb, [facility] [place] [facility] [address] [id number] [place] [address] Feb, [facility] [place] [facility] [address] [id number], [place] [address] Feb, [facility] [place] [facility] [address] [facility] [id number] [place] [address] Feb, [facility] [place] [facility] [address] [id number] [place] [address] Feb, [facility] [place] [facility] [address] [facility] [id number] [place] [address] Feb, [facility] [place] [facility] [address] [facility] [id number] [place] [address] Jan, [facility] [place] [facility] [address] [facility] [id number], [place] [address] Jan, [facility] [place] [facility] [address] [facility] [id number], [place] [address] 31 Jan, 2012 [facility] [place] [facility] [address] [facility] [id number], [place] [address] 31 Jan, 2012 [facility] [place] [facility] [address] [facility] [id number], [place] [address] 30 Jan, 2012 [facility] [place] [facility] [address] [facility] [id number], [place] [address] Jan, [facility] [place] [facility] [address] [facility] [id number], [place] [address] 25 Jan, 2012 [facility] [place] [facility] [address] [facility] [id number], [place] [address] 16 Jan, 2012 [facility] [place] [facility] [address] [facility] [id number], [place] [address] 16 Jan, 2012 [facility] [place] [facility] [address] [facility] [id number], [place] [address] 15 Jan, 2012 [facility] [place] [facility] [address] [id number] [place] [address] 15 Jan, 2012 [facility] [place] [facility] [address] [id number] [place] [address] 01 Jan, 2012 [facility] [place] [facility] [address] [id number] [place] [address] 2546 26 Dec, 2011 [facility] [place] [facility] [address] [id number] [place] [address] 2546 26 Dec, 2011 [facility] [place] [facility] [address] [id number] [place] [address] 254 24 Dec, 2011 [facility] [place] [facility] [address] [id number] [place] [address] 23 Dec, 2011 [facility] [place] [facility] [address] [id number] [place] [address] 22 Dec, 2011 [facility] [place] [facility] [address] [id number] [place] [address]666 21 Dec, 2011 [facility] [place] [facility] [address] [id number] [place] [address] 2548 20 Dec, 2011 [facility] [place] [facility] [address] [id number] [place] [address] 254 20 Dec, 2011 [facility] [place] [facility] [address] [id number] [place] [address]80 07 Dec, 2011 [facility] [place] [facility] [address] [id number] [place] [address] 2546 06 Sep, 2011 [facility] [place] [facility] [address] [id number] [place] [address] 2546 06 Sep, 2011 [facility] [place] [facility] [address] [id number] [place] [address] 2546 05 Dec, 2011 [facility] [place] [facility] [address] [id number] [place] [address]46 23 Nov, 2011 [facility] [place] [facility] [address] [id number] [place] [address] Nov, [facility] [place] [facility] [address] [id number] [place] [address]162 Nov, [facility] [place] [facility] [address] [id number] [place] [address] 9167 Nov, [facility] [place] [facility] [address] [id number] [place] [address]876 Nov, [facility] [place] [facility] [address] [id number] [place] [address] Nov, [facility] [place] [facility] [address] [id number] [place] [address] Nov, [facility] [place] [facility] [address] [id number] [place] [address] 6[address] Nov, [facility] [place] [facility] [address] [id number] [place] [address] 8729 Oct, [facility] [place] [facility] [address] [id number] [place] [address] 2812 Oct, [facility] [place] [facility] [address] [id number] [place] [address] 4946 Oct, [facility] [place] [facility] [address] [id number] [place] [address] 6702 Oct, [facility] [place] [facility] [address] [id number] [place] [address] 2431 Oct, [facility] [place] [facility] [address] [id number] [place] [address] 8374 Oct, [facility] [place] [facility] [address] [id number] [place] [address] Oct, [facility] [place] [facility] [address] [id number] [place] [address] Sep, [facility] [place] [facility] [address] [id number] [place] [address] 4296 Sep, [facility] [place] [facility] [address] [id number] [place] [address] August, [facility] [address] [id number] [place] [address] 49[address] August, [facility] [place] [facility] [address] [id number] [place] [address] 1616 August, [facility] [address] [id number] [place] [address] 67[address] August, [facility] [place] [facility] [address] [id number] [place] [address] 0193 Jul, [facility] [address] [id number] [place] [address] 3948 Jul, [facility] [place] [facility] [address] [id number] [place] [address] 3073 Jul, [facility] [address] [id number] [place] [address] 0630 Jul, [facility] [place] [facility] [address] [id number] [place] [address] 9551 Jul, [facility] [place] [facility] [address] [id number] [place] [address] 9825 Jul, [facility] [place] [facility] [address] [id number] [place] [address] 0678 Jul, [facility] [place] [facility] [address] [id number] [place] [address] 4887 Jul, [facility] [place] [facility] [address] [id number] [place] [address] 9881 Jul, [facility] [place] [facility] [address] [id number] [place] [address] 1545 Jun, [facility] [place] [facility] [address] [id number] [place] [address] 0238 Jun, [facility] [place] [facility] [address] [id number] [place] [address] 3682 Jun, [facility] [place] [facility] [address] [id number] [place] [address] 1380 14 Jun, 2011 [facility] [place] [facility] [address] [id number] [place] [address] 5592 Jun, [facility] [place] [facility] [address] [id number] [place] [address] 3367 Jun, [facility] [place] [facility] [address] [id number] [place] [address] 7369 Jun, [facility] [place] [facility] [address] [id number] [place] [address]- 4206 May, [facility] [place] [facility] [address] [id number] [place] [address] 5939 24 May, 2011 [facility] [place] [facility] [address] [id number] [place] [address] 5062 May, [facility] [place] [facility] [address] [id number] [place] [address] 3213 May, [facility] [place] [facility] [address] [id number] [place] [address]- 1273 May, [facility] [place] [facility] [address] [id number] [place] [address]- 4161 Apr, [facility] [place] [facility] [address] [id number] [place] [address]- 7569 Apr, [facility] [place] [facility] [address] [id number] [place] [address] 2750 Apr, [facility] [place] [facility] [address] [id number] [place] [address]- 9046 Apr, [facility] [place] [facility] [address] [id number] [place] [address]- 4261 Apr, [facility] [place] [facility] [address] [id number] [place] [address] 6917 Mar, [facility] [place] [facility] [address] [id number], [place] [address] 2462 Mar, [facility] [place] [facility] [address] [id number] [place] [address]- 5646 Mar, [facility] [place] [facility] [address] [id number] [place] [address] Mar, [facility] [place] [facility] [address] [facility] [id number] [place] [address]- [address]115 Mar, [facility] [place] [facility] [address] [id number] [place] [address]- 0057 Mar, [facility] [place] [facility] [address] [id number] [place] [address]- 4752 Mar, [facility] [place] [facility] [address] [id number] [place] [address]- 0139 Feb, [facility] [place] [facility] [address] [facility] [id number], [place] [address] Feb, [facility] [place] [facility] [address] [id number] [place] [address]- 4302 Feb, [facility] [place] [facility] [address] [facility] [id number] [place] [address]- 1244 Feb, [facility] [place] [facility] [address] [facility] [id number] [place] [address] 1863 Jan, [facility] [place] [facility] [address] [id number], [place] [address] 6076 Jan, [facility] [place] [facility] [address] [id number], [place] [address] 6607 Jan, [facility] [place] [facility] [address] [id number] [place] [address]- 7944 Jan, [facility] [place] [facility] [address] [facility] [id number], [place] [address] 3483 Nov, [facility] [place] [facility] [address] [facility] [id number] [place] [address]- 7989 30 Mar, 2010 [facility] [place] [facility] [id number] [address]14 Mar, [facility] [id number] [address]65 Mar, [facility] [id number], [place] [address] 3225 Mar, [facility] [id number], [place] [address] 6475 Mar, [facility] [id number], [place] [address] 3618 Mar, [facility] [id number] [place] [address]- [address]32 Feb, [facility] [id number], [place] [address] 2026 Feb, [facility] [id number] [address] Jan, [facility] [id number] [address] 3310 Jan, [facility] [id number] [address] [address] Jan, IMMUNIZATIONS No Known Immunizations SOCIAL HISTORY Never Assessed REASON FOR VISIT Medication question PLAN OF CARE VITAL SIGNS MEDICATIONS Medication Instructions Dosage Frequency Start Date End Date Duration Status Voltaren 1 % Transdermal to knee BID. 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
--- OUTSIDE RECORDS SUMMARY | 2018-05-29 08:38 | XMS REPORT ---
Author Author ISABEL MAE [facility] Address [address] [place] [address] Care Team Providers Care Supervisor Machine Setter Name Role Phone ISABEL MAE Unavailable PROBLEMS Type Condition ICD9-CM Code [id number] Code Onset Dates Condition Status SNOMED Code Problem Long-term use of high-risk medication Z79.899 Active 056691965 Problem Abnormal chest CT R93.8 Active 297657907 Problem Low back pain M54.5 Active 919478277 Problem Generalized anxiety disorder F41.1 Active 43688574 Problem Dysthymic disorder F34.1 Active 23749781 Problem Coronary artery disease involving gakona coronary artery of gakona heart, angina presence unspecified I25.10 Active 9662523014073 Problem Depressed F32.9 Active 99334284 Problem Fibromyalgia M79.7 Active 255985260 Problem Hypothyroid E03.9 Active 76699342 Problem Essential (primary) hypertension I10 Active 12273519 Problem Insomnia G47.00 Active 088852019 Problem Vitamin D deficiency E55.9 Active 03272122 Problem Anemia in chronic kidney disease D63.1 Active 137256360670421 Problem Chronic kidney disease, unspecified N18.9 Active 794654011 Problem Body mass index (BMI) of 40.0-44.9 in adult Z68.41 Active 775474774 Problem Stage 3 chronic kidney disease N18.3 Active 691567149 Problem Restless leg G25.81 Active 53919018 Problem Palpitations R00.2 Active 70175878 Problem Asthma J45.909 Active 658742189 Problem Primary osteoarthritis of left knee M17.12 Active 152229947 Problem Bipolar disorder, current episode manic without psychotic features F31.10 Active 399689124 Problem Mood disorder F39 Active 71869741 Problem Degenerative tear of medial meniscus of left knee M23.204 Active 505814528 Problem History of colon polyps Z86.010 Active 028070702 Problem Asthma with acute exacerbation in adult J45.901 Active 223937350 Problem Chronic kidney disease, stage 4 (severe) N18.4 Active 702858845 Problem Functional diarrhea K59.1 Active 85949397 Problem Hypokalemia E87.6 Active 72357596 Problem Mixed stress and urge urinary incontinence N39.46 Active 975457181 Problem History of anemia Z86.2 Active 472976531 Problem Other seasonal allergic rhinitis J30.2 Active 567630481 ALLERGIES No Information ENCOUNTERS Encounter Location Date Diagnosis [facility] [id number] [place] [address] 38753- 4096 Oct, [facility] [address] 65075- 4458 Sep, [facility] [address] 47687- 3790 August, Fibromyalgia M79.7 [facility] [address] 98997- 2675 August, [facility] [address] 51241- 2660 August, [facility] [address] 48377- 6580 August, Ab[address] chest [address] R93.8 [facility] [id number] [place] [address] 30081- 8602 August, Generalized anxiety disorder F41.1 and Major depressive disorder, recurrent episode with anxious distress F33.9 [facility] [id number] [place] [address] 43281- 7029 August, Ab[address] chest [address] R93.8 [facility] [id number] [place] [address] 36778- 2818 Jul, [facility] [id number] [place] [address] 53226- 5361 Jul, Chronic kidney disease, stage 4 (severe) N18.4 [facility] [address] 67293- 7302 Jul, [facility] [id number] [place] [address] 71252- 8944 Jul, Restless leg G25.81 ; Mixed stress and urge urinary incontinence N39.46 and Fibromyalgia M79.7 [facility] [id number] [place] [address] 73146- 6763 Jul, Chronic kidney disease, stage 4 (severe) N18.4 [facility] [id number] [place] [address] 96248- 4477 Jun, Orthostatic hypotension I95.1 ; Chronic kidney disease, stage 4 (severe) N18.4 ; Chest wall discomfort R07.89 and Body mass index (BMI) of 40.0-44.9 in adult Z68.41 [facility] [id number] [place] [address] 68012- 1953 Jun, [facility] [id number] [place] [address] 33183- 6464 Jun, Orthostatic hypotension I95.1 [facility] [id number] [place] [address] 93883- 5560 Jun, [facility] [id number] [place] [address] 62547 -2138 Jun, Orthostatic hypotension I95.1 ; Dysuria R30.0 and Acute cystitis without hematuria N30.00 [facility] [id number] [place] [address] 36825- 9704 Jun, [facility] [id number] [place] [address] 73681- 7104 Jun, Chronic kidney disease, stage 4 (severe) N18.4 [facility] [id number] [place] [address] 64266- 3731 Jun, Fibromyalgia M79.7 [facility] [id number] [place] [address] 45515- 8759 Jun, [facility] [address] [address]- 7904 Jun, [facility] [id number] [place] [address] 09914- [address] May, [address] chest [address] R93.8 and Stage 3 chronic kidney disease N18.3 [facility] [id number] [place] [address] 67644- 0286 May, Chronic kidney disease, stage 4 (severe) N18.4 [facility] [id number] [place] [address] 72861- 8527 May, Chronic kidney disease, stage 4 (severe) N18.4 [facility] [id number] [place] [address] 25845- 2207 May, [address] R93.8 [facility] [id number] [place] [address] 96913- 8926 May, [facility] [id number] [place] [address] 18282- 3282 May, [facility] [id number] [place] [address] 38321- 3416 May, Generalized anxiety disorder F41.1 and Major depressive disorder, recurrent episode with anxious distress F33.9 [facility] [address] [place] [address] 72140- 3805 May, Mood disorder F39 [facility] [address] [address]- 8506 Apr, [facility] [address] [place] [address] 60784- 8267 Apr, Infected skin lesion L08.9 and Muscle strain of right shoulder region, initial encounter S46.911A [facility] [address] [address]- 1772 Apr, Generalized anxiety disorder F41.1 and Major depressive disorder, recurrent episode with anxious distress F33.9 [facility] [address] [address]- 8612 Apr, [facility] [id number] [place] [address] 04454- 5068 Apr, Recent urinary tract infection Z87.440 and Hypothyroid E03.9 [facility] [id number] [place] [address] 16447- 3251 Apr, Generalized anxiety disorder F41.1 and Major depressive disorder, recurrent episode with anxious distress F33.9 [facility] [id number] [place] [address] 19533- 8030 Apr, Recent urinary tract infection Z87.440 [facility] [id number] [place] [address] 03012- 1424 Mar, [facility] [id number] [place] [address] 86572 -3204 Mar, Dysuria R30.0 ; Acute cystitis without hematuria N30.00 and BMI 40.0-44.9, adult Z68.41 [facility] [id number] [place] [address] 77587- 5212 Mar, [facility] [id number] [place] [address] 72962- 8281 Mar, [facility] [id number] [place] [address] 38311- 3179 Mar, Generalized anxiety disorder F41.1 and Major depressive disorder, recurrent episode with anxious distress F33.9 [facility] [id number] [place] [address] 06234- 0461 Feb, Conjunctivitis, bacterial H10.9 [facility] [id number] [place] [address] 38360- 8350 Feb, [facility] [id number] [place] [address] 26907 -2496 Feb, Conjunctivitis, bacterial H10.9 [facility] [id number] [place] [address] 21215- 8753 Feb, [facility] [id number] [place] [address] 68671 -7358 Feb, Dysuria R30.0 ; Acute cystitis N30.00 and BMI 40.0-44.9, adult Z68.41 [facility] [address] 20771- 0838 Feb, [facility] [address] 77650- 2544 Feb, Generalized anxiety disorder F41.1 and Major depressive disorder, recurrent episode with anxious distress F33.9 [facility] [id number] [place] [address] 99642- 6150 Feb, Mood disorder F39 and BMI 40.0-44.9, adult Z68.41 [facility] [id number] [place] [address] 13834- 9458 Jan, [facility] [address] 50326- 8559 Jan, [facility] [id number] [place] [address] 60615- 2374 Jan, Hypothyroid E03.9 [facility] [id number] [place] [address] 68331- 7601 Jan, [facility] [id number] [place] [address] 56852- 3843 Jan, Chronic kidney disease, unspecified N18.9 ; Hypokalemia E87.6 ; Essential (primary) hypertension I10 ; Fibromyalgia M79.7 ; Coronary artery disease involving gakona coronary artery of gakona heart, angina presence unspecified I25.10 ; Hypothyroid E03.9 and Encounter for immunization Z23 [facility] [address] 95525- 3740 Jan, Hypothyroid E03.9 [facility] [id number] [place] [address] 20313- 8734 02 Jan, 2017 [facility] [id number] [place] [address] 37724- 6949 28 Dec, 2016 Vitamin D deficiency E55.9 [facility] [id number] [place] [address] 82161- 0872 28 Dec, 2016 Primary osteoarthritis of left knee M17.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 [facility] [id number] [place] [address] 15441- 3789 19 Dec, 2016 Fibromyalgia M79.7 [facility] [id number] [place] [address] 18607- 2254 18 Dec, 2016 Mood disorder F39 [facility] [id number] [place] [address] 97013- 0497 13 Dec, 2016 [facility] [id number] [place] [address] 95643- 2543 13 Dec, 2016 Generalized anxiety disorder F41.1 and Major depressive disorder, recurrent episode with anxious distress F33.9 [facility] [id number] [place] [address] 26063- 6306 11 Dec, 2016 [facility] [id number] [place] [address] 64306- 7673 08 Dec, 2016 Streptococcal meningitis G00.2 [facility] [id number] [place] [address] 47729- 2540 07 Dec, 2016 Streptococcal meningitis G00.2 [facility] [id number] [place] [address] 64697- 8214 07 Dec, 2016 [facility] [id number] [place] [address] 55654- 2549 06 Dec, 2016 Streptococcal meningitis G00.2 [facility] [id number] [place] [address] 80393330- 4641 Dec, [facility] [id number] [place] [address] 49192- 8978 Dec, Major depressive disorder, recurrent episode with anxious distress F33.9 [facility] [id number] [place] [address] 21169- 1825 Nov, Fever, unspecified fever cause R50.9 [facility] [id number] [place] [address] 48421- 6796 Nov, [facility] [id number] [place] [address] 96937- 5580 Nov, Hypothyroid E03.9 [facility] [id number] [place] [address] 25994- 6491 Nov, Generalized anxiety disorder F41.1 and Major depressive disorder, recurrent episode with anxious distress F33.9 [facility] [id number] [place] [address] 50379- 0624 Nov, [facility] [id number] [place] [address] [id number] Oct, Dental examination Z01.20 [facility] [id number] [place] [address] 68847- 6753 Oct, Generalized anxiety disorder F41.1 and Major depressive disorder, recurrent episode with anxious distress F33.9 [facility] [id number] [place] [address] 46175- 3600 Oct, Chronic kidney disease, stage 4 (severe) N18.4 [facility] [id number] [place] [address] 33958- 3307 Oct, [facility] [id number] [place] [address] 41768- 2722 Oct, Fibromyalgia M79.7 [facility] [id number] [place] [address] 23974- 2135 Oct, [facility] [id number] [place] [address] 54665- 7091 Oct, Generalized anxiety disorder F41.1 ; Major depressive disorder, recurrent episode with anxious distress F33.9 and Bipolar disorder, current episode manic without psychotic features F31.10 [facility] [address], [place] [address]- 8102 Sep, [facility] [id number] [place] [address] 07755- 9881 Sep, [facility] [id number] [place] [address] 11283- 8351 Sep, Vitamin D deficiency E55.9 [place] [id number] [place] [address] 46080- 1687 Sep, Vitamin D deficiency E55.9 [facility] [id number] [place] [address] 26486- 8585 Sep, [facility] [id number] [place] [address] 45400- 5942 Sep, Chronic kidney disease, stage 4 (severe) N18.4 ; Hypothyroid E03.9 ; Restless leg G25.81 ; Fibromyalgia M79.7 ; Essential ( primary) hypertension I10 ; Vitamin D deficiency E55.9 ; Dyspepsia R10.13 ; Anemia in chronic kidney disease D63.1 ; Chronic kidney disease, unspecified N18.9 ; Coronary artery disease involving gakona coronary artery of gakona heart , angina presence unspecified I25.10 ; Screening breast examination Z12.39 and Low back pain M54.5 [facility] [id number] [place] [address] 07719- 6757 August, Generalized anxiety disorder F41.1 and Major depressive disorder, recurrent episode with anxious distress F33.9 [facility] [id number] [place] [address] 48900- 9285 August, Generalized anxiety disorder F41.1 and Major depressive disorder, recurrent episode with anxious distress F33.9 [facility] [id number] [place] [address] 70388- 4997 August, Fibromyalgia M79.7 [facility] [address] [address]- 7433 Jul, Generalized anxiety disorder F41.1 and Major depressive disorder, recurrent episode with anxious distress F33.9 [facility] [address] [address]- 8172 Jul, Fibromyalgia M79.7 [facility] [id number] [place] [address] 54372- 6300 Jul, Generalized anxiety disorder F41.1 [facility] [id number] [place] [address] 90476- 6866 May, [facility] [id number] [place] [address] 25055- 4524 May, Hypothyroid E03.9 [facility] [id number] [place] [address] 14686- 3652 May, Chronic kidney disease, stage 4 (severe) N18.4 ; Hypothyroid E03.9 ; Restless leg G25.81 ; Fibromyalgia M79.7 ; Essential ( primary) hypertension I10 ; Vitamin D deficiency E55.9 ; Dyspepsia R10.13 ; Acute non-recurrent maxillary sinusitis J01.00 ; Anemia in chronic kidney disease D63.1 ; Chronic kidney disease, unspecified N18.9 and Coronary artery disease involving gakona coronary artery of gakona heart, angina presence unspecified I25.10 [facility] [address] [address]- 8312 May, Vitamin D deficiency, unspecified E55.9 [facility] [id number] [place] [address] 76663- 2623 May, Generalized anxiety disorder F41.1 and Major depressive disorder, recurrent episode with anxious distress F33.9 [facility] [address] [address]- 5015 Apr, Pain in right knee M25.561 and Pain in left knee M25.562 [facility] [address] [place] [address] 99366- 8982 Apr, [facility] [id number] [place] [address] 49830- 9882 Apr, [facility] [id number] [place] [address] 78065- 7301 Apr, [facility] [id number] [place] [address] 84761- 1036 Mar, Generalized anxiety disorder F41.1 and Major depressive disorder, recurrent episode with anxious distress F33.9 [facility] [id number] [place] [address] 34764- 4289 Mar, Generalized anxiety disorder F41.1 and Major depressive disorder, recurrent episode with anxious distress F33.9 [facility] [facility] [id number] [place] [address] 04936- 6366 Mar, [facility] [id number] [place] [address] 45218- 4924 Mar, [facility] [id number] [place] [address] 00379- 2308 Mar, [facility] [id number] [place] [address] 01849- 6618 Mar, Asthma J45.909 and Fibromyalgia M79.7 [facility] [id number] [place] [address] 25718- 9304 Mar, Chronic kidney disease, stage 4 (severe) N18.4 ; Vitamin D deficiency E55.9 and Essential (primary) hypertension I10 [facility] [id number] [place] [address] 96574- 4936 Feb, [facility] [id number] [place] [address] 61285- 4616 Feb, Dysuria R30.0 ; Mixed stress and urge urinary incontinence N39.46 ; Fibromyalgia M79.7 and Chronic kidney disease, stage IV (severe) N18.4 [facility] [id number] [address] 2546 Feb, Chronic kidney disease, stage 4 (severe) N18.4 [facility] [id number] [place] [address] 50379 2546 Feb, Chronic kidney disease, stage 4 (severe) N18.4 [facility] [id number] [place] [address] 85512 2546 Feb, [facility] [id number] [place] [address] 14900 2546 Feb, Vitamin D deficiency, unspecified E55.9 [facility] [id number] [place] [address] 80923 2546 Jan, [facility] [id number] [place] [address] 87907 2546 Jan, [facility] [id number] [place] [address] 71261 2546 30 Dec, 2015 [facility] [id number] [place] [address] 65113 2546 28 Dec, 2015 Chronic kidney disease, stage 4 (severe) N18.4 [facility] [address] [place] [address] 48510 2546 Dec, Dysthymic disorder F34.1 and Generalized anxiety disorder F41.1 [facility] [address], [place] [address] 2546 27 Dec, 2015 [facility] [id number] [place] [address] 47037 2546 26 Dec, 2015 [facility] [address] [place] [address] 71759 2546 08 Dec, 2015 Dysthymic disorder F34.1 and Generalized anxiety disorder F41.1 [facility] [id number] [place] [address] 52789- 6145 Dec, Dysuria R30.0 ; Chronic kidney disease, stage 4 (severe) N18.4 ; Hypertension I10 ; Dyspepsia R10.13 ; Yeast dermatitis B37.2 ; Palpitations R00.2 ; Hypothyroid E03.9 ; Functional diarrhea K59.1 and Other seasonal allergic rhinitis J30.2 [facility] [id number] [place] [address] 34245 -0450 Dec, [facility] [address] 92281 -3973 Nov, Dysuria R30.0 and Stress incontinence N39.3 [facility] [address] 59964- 1916 Nov, [facility] [address] 27148- 4642 Nov, [facility] [facility] [address] 89906- 7127 Nov, Osteoarthritis of knees, bilateral M17.0 [facility] [address] 20484- 4504 Nov, Dysthymic disorder F34.1 and Generalized anxiety disorder F41.1 [facility] [id number] [place] [address] 38912- 4391 Nov, [facility] [address] 86275- 0419 Nov, [facility] [address] 12331- 3160 Nov, Urgency of urination R39.15 [facility] [address] 08512- 1753 Nov, [facility] [id number] [place] [address] 31941- 9365 Nov, Chronic kidney disease, stage 4 (severe) N18.4 [facility] [id number] [place] [address] 21496- 0215 Oct, Hypertension I10 ; Coronary artery disease involving gakona coronary artery of gakona heart, angina presence unspecified I25.10 ; Palpitations R00.2 ; Hypothyroid E03.9 ; Right foot pain M79.671 ; Functional diarrhea K59.1 and Other seasonal allergic rhinitis J30.2 [facility] [id number] [place] [address] 16049- 1866 Oct, Dysthymic disorder F34.1 and Generalized anxiety disorder F41.1 [facility] [id number] [place] [address] 20087- 2469 Sep, [facility] [address] 55188- 0356 Sep, [facility] [address] 46433- 3274 Sep, [facility] [address] 68840- 5927 Sep, [facility] [id number] [place] [address] 52733- 8446 Sep, [facility] [id number] [place] [address] 94903- 5795 Sep, Dysthymic disorder F34.1 and Generalized anxiety disorder F41.1 [facility] [id number] [place] [address] 39455- 0032 16 Sep, 2015 Asthma with acute exacerbation in adult J45.901 ; Dysuria R30.0 ; Chronic kidney disease, stage 4 (severe) N18.4 and History of anemia Z86.2 [facility] [id number] [place] [address] 51413- 3243 Sep, Generalized anxiety disorder F41.1 and Dysthymic disorder F34.1 [facility] [id number] [place] [address] 64285- 3071 August, Screening breast examination Z12.39 and Acute recurrent maxillary sinusitis J01.01 [facility] [id number] [place] [address] 69067- 5106 August, Osteoarthritis of knees, bilateral M17.0 [facility] [id number] [place] [address] 26731- 2123 August, Chronic kidney disease, stage 4 (severe) N18.4 ; Acute non- recurrent maxillary sinusitis J01.00 ; Urinary problem R39.89 ; Bowel habit changes R19.4 ; Functional diarrhea K59.1 and History of colon polyps Z86.010 [facility] [id number] [place] [address] 31525- 1002 Jul, Dysthymic disorder F34.1 and Generalized anxiety disorder F41.1 [facility] [address] 25962- 9108 Jul, [facility] [address] 77597- 4486 Jul, Dysthymic disorder F34.1 ; Generalized anxiety disorder F41.1 and group home use of drug Z79.899 [facility] [address] 24749- 1656 Jul, [facility] [id number] [place] [address] 98514- 3622 16 Jun, 2015 [facility] [id number] [place] [address] 06780- 4046 08 Jun, 2015 [place] [id number] [place] [address] 02854- 7321 May, [place] [address] 37413- 3218 May, Dysthymic disorder F34.1 and Generalized anxiety disorder F41.1 [place] [id number] [place] [address] 44174- 2550 Apr, Kidney disease N28.9 [place] [id number] [place] [address] 30226- 9592 Apr, Generalized anxiety disorder F41.1 and Dysthymic disorder F34.1 [place] [address] 00760- 5571 Apr, Chronic kidney disease, stage 4 (severe) N18.4 [place] [address] 01656- 2326 Apr, Generalized anxiety disorder F41.1 ; Major depression, recurrent F33.9 and Sleep disturbance G47.9 [place] [address] 74069- 3598 Mar, Generalized anxiety disorder F41.1 and Dysthymic disorder F34.1 [place] [address] 36392- 7575 Mar, Generalized anxiety disorder F41.1 ; Dysthymic disorder F34.1 and Insomnia G47.00 [place] [address] 11515- 2335 Mar, [place] [address] 10531- 0916 Mar, [place] [address] 13961- 1937 Mar, Osteoarthritis of knees, bilateral M17.0 [place] [id number] [place] [address] 83373- 9260 Mar, Hypertension I10 ; Hypothyroid E03.9 ; Dysthymic disorder F34.1 ; Chronic kidney disease, stage 4 (severe) N18.4 and Nausea & vomiting R11.2 [place] [id number] [place] [address] 33881- 4615 Mar, Generalized anxiety disorder F41.1 ; Dysthymic disorder F34.1 and Insomnia G47.00 [place] [id number] [place] [address] 79000- 0023 Mar, Dehydration E86.0 ; Chronic kidney disease, stage 4 (severe ) N18.4 and Nausea & vomiting R11.2 [facility] [id number] [place] [address] 30769 -3352 Mar, Gastroenteritis K52.9 [facility] [id number] [place] [address] 53015- 0215 Mar, [facility] [id number] [place] [address] 14400- 2169 Mar, [place] [id number] [place] [address] 29699- 2385 Feb, Dysthymic disorder F34.1 and Generalized anxiety disorder F41.1 [place] [id number] [place] [address] 90161- 9864 Jan, UTI (urinary tract infection) N39.0 ; Asthma J45.909 ; Coronary artery disease involving gakona coronary artery of gakona heart, angina presence unspecified I25.10 ; Hypertension I10 ; Hypothyroid E03.9 ; Vitamin D deficiency E55.9 ; Insomnia G47.00 ; Palpitations R00.2 ; Depressed F32.9 ; Restless leg G25.81 and Anxiety F41.9 [facility] [id number] [place] [address] 79591- 3805 Jan, Dysthymic disorder F34.1 and Generalized anxiety disorder F41.1 [place] [id number] [place] [address] 22353- 1342 Jan, [place] [id number] [place] [address] 99598- 5256 Dec, [place] [id number] [place] [address] 81104- 9237 Dec, Alkalosis 276.3 ; Chronic kidney disease, 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.4 ; Hyperpotassemia 276.7 ; Secondary hyperparathyroidism, renal 588.81 ; Proteinuria 791.0 ; Unspecified vitamin D deficiency 268.9 ; Anemia in chronic kidney disease 285.21 ; Other and unspecified hyperlipidemia 272.4 ; Hypertension, essential, benign 401.1 and Chronic kidney disease (CKD), stage III (moderate) 585.3 [address] [place] [address] 85386- 7441 Dec, [place] [id number] [place] [address] 77238- 5205 Dec, Depressive disorder, not elsewhere classified 311 and Generalized anxiety disorder 300.02 [place] [id number] [place] [address] 40828- 3350 Dec, [address] 10084- 8207 Dec, [place] [id number] [place] [address] 41992- 4584 Nov, Depressive disorder, not elsewhere classified 311 and Generalized anxiety disorder 300.02 [place] [id number] [place] [address] 63408- 6857 Nov, Arthritis of both knees 716.[address] 08320- 2652 Nov, PAF (paroxysmal atrial fibrillation) 427.31 ; CAD (coronary artery disease) 414.00 ; Chest pain 786.50 and Chronic kidney disease (CKD) stage G4/A1, severely decreased glomerular filtration rate (GFR) between 15-29 mL/min/1.73 square meter and albuminuria creatinine ratio less than 30 mg/g 585.4 [address] [place] [address] 11970- 6933 Oct, Coronary atherosclerosis of unspecified type of vessel, gakona or graft 414.00 ; Chronic kidney disease, 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.4 ; Hypertension 401.9 and Edema 782.3 [place] [id number] [place] [address] 56068- 5485 Oct, Depressive disorder, not elsewhere classified 311 and Generalized anxiety disorder 300.[id number] [place] [address] 41146- 9849 Oct, Depressive disorder, not elsewhere classified 311 and Generalized anxiety disorder 300.02 [facility] [id number] [place] [address] 21747- 1174 Oct, [facility] [id number] [place] [address] 45269- 2541 Oct, [facility] [address] 15863- 0788 Sep, [facility] [address] 78070- 3733 Sep, Chronic kidney disease, 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.4 [place] [id number] [place] [address] 74290- 3980 Sep, [place] [address] 14444- 3013 Sep, Coronary atherosclerosis of unspecified type of vessel, gakona or graft 414.00 ; Hypertension 401.9 ; Edema 782.3 and Hypothyroidism 244.9 [place] [id number] [place] [address] 14552- 5751 Sep, Coronary atherosclerosis of unspecified type of vessel, gakona or graft 414.00 ; Hypertension 401.9 ; Fibromyalgia 729.1 ; Edema 782.3 ; Hypothyroidism 244.9 and Anemia 285.9 [place] [id number] [place] [address] 38836- 7872 Sep, Anxiety disorder, unspecified 300.00 and Depressive disorder , not elsewhere classified 311 [facility] [id number] [place] [address] 73703- 2392 Sep, [facility] [id number] [place] [address] 70773- 7489 August, Generalized anxiety disorder 300.02 [facility] [id number] [place] [address] 80102- 2827 August, Closed fracture of lateral malleolus 824.2 [facility] [place] [facility] [address] [id number] [place] [address]- 3933 14 Jul, 2014 [facility] [place] [facility] [address] [id number], [place] [address]- 6452 Jul, [facility] [place] [facility] [address] [facility] [id number], [place] [address]- 3133 Jun, [facility] [place] [facility] [address] [id number], [place] [address]- 5258 Jun, [facility] [place] [facility] [address] [facility] [id number], [place] [address]- 4701 Jun, [facility] [place] [facility] [address] [facility] [id number], [place] [address]- 7483 Jun, [facility] [place] [facility] [address] [id number], [place] [address]- 0735 Jun, [facility] [place] [facility] [address] [facility] [id number][place] [address]- 9613 Jun, [facility] [place] [facility] [address] [id number], [place] [address]- 0996 May, [facility] [place] [facility] [address] [facility] [id number], [place] [address]- 0134 May, [facility] [place] [facility] [address] [id number], [place] [address]- 5094 May, [facility] [place] [facility] [address] [facility] [id number], [place] [address]- 2164 May, [facility] [place] [facility] [address] [facility] [id number][place] [address]- 7046 16 May, 2014 [facility] [place] [facility] [address] [facility] [id number], [place] [address]- 0095 16 May, 2014 [facility] [place] [facility] [address] [id number], [place] [address]- 0441 May, [facility] [place] [facility] [address] [id number] [place] [address]- 9582 13 May, 2014 [facility] [place] [facility] [address] [id number] [place] [address]- 2798 10 May, 2014 [facility] [place] [facility] [address] [id number] [place] 8616 10 May, 2014 [facility] [place] [facility] [address] [id number] [place] [address]- 0308 Apr, [facility] [place] [facility] [address] [id number] [place] [address]- 6414 Apr, [facility] [place] [facility] [address] [id number] [place] [address]- 2652 Mar, [facility] [place] [facility] [address] [id number] [place] [address]- 2391 Mar, [facility] [place] [facility] [address] [id number] [place] [address]- 6930 Mar, [facility] [place] [facility] [address] [id number] [place] [address]- 2147 Mar, [facility] [place] [facility] [address] [id number] [place] [address]- 2078 Mar, [facility] [place] [facility] [address] [id number] [place] [address]- 7293 15 Mar, 2014 [facility] [place] [facility] [address] [id number] [place] [address]- 4139 Mar, [facility] [place] [facility] [address] [id number] [place] [address]- 7754 Feb, [facility] [place] [facility] [address] [id number] [place] [address]- 4732 Feb, [facility] [place] [facility] [address] [id number] [place] [address]- 0044 17 Feb, 2014 [facility] [place] [facility] [address] [id number] [place] [address]- 5575 Jan, [facility] [place] [facility] [address] [id number] [place] [address]- 9661 Jan, [facility] [place] [facility] [address] [id number] [place] [address]- 3465 Jan, [facility] [place] [facility] [address] [id number] [place] [address]- 0295 Jan, [facility] [place] [facility] [address] [id number] [place] [address]- 6908 Jan, [facility] [place] [facility] [address] [id number] [place] [address]- 8182 Jan, [facility] [place] [facility] [address] [id number] [place] [address]- 3231 Jan, [facility] [place] [facility] [address] [id number] [place] [address]- 6000 Jan, [facility] [place] [facility] [address] [id number] [place] [address]- 2025 Jan, [facility] [place] [facility] [address] [id number] [place] [address]- 6349 Jan, [facility] [place] [facility] [address] [id number] [place] [address]- 1159 Nov, [facility] [place] [facility] [address] [id number] [place] [address]- 1374 Nov, [facility] [place] [facility] [address] [id number] [place] [address]- 8636 Nov, [facility] [place] [facility] [address] [id number] [place] [address]- 7112 Oct, [facility] [place] [facility] [address] [id number] [place] [address]- 3272 Oct, [facility] [place] [facility] [address] [id number] [place] [address]- 6212 Oct, [facility] [place] [facility] [address] [id number] [place] [address]- 4095 18 Oct, 2013 [facility] [place] [facility] [address] [id number] [place] [address]- 7859 Oct, [facility] [place] [facility] [address] [id number] [place] [address]- 5160 Oct, [facility] [place] [facility] [address] [id number] [place] [address]- 9775 Oct, [facility] [place] [facility] [address] [id number] [place] [address]- 7991 Oct, [facility] [place] [facility] [address] [id number] [place] [address]- 2154 Oct, [facility] [place] [facility] [address] [id number] [place] [address]- 6401 Sep, [facility] [place] [facility] [address] [id number] [place] [address]- 2314 Sep, [facility] [place] [facility] [address] [id number] [place] [address]- 2096 Sep, [facility] [place] [facility] [address] [id number] [place] [address]- 5821 Sep, [facility] [place] [facility] [address] [id number] [place] [address]- 4262 Sep, [facility] [place] [facility] [address] [id number] [place] [address]- 3939 Sep, [facility] [place] [facility] [address] [id number] [place] [address]- 5113 Sep, [facility] [place] [facility] [address] [id number] [place] [address]- 2540 Sep, [facility] [place] [facility] [address] [id number] [place] [address]- 4197 Sep, [facility] [place] [facility] [address] [id number] [place] [address]- 5566 August, [facility] [place] [facility] [address] [id number] [place] [address]- 8804 August, [facility] [place] [facility] [address] [id number] [place] [address]- 1809 August, [facility] [place] [facility] [address] [id number] [place] [address]- 7271 August, [facility] [place] [facility] [address] [id number] [place] [address]- 0018 August, [facility] [place] [facility] [address] [id number] [place] [address]- 5099 August, [facility] [place] [facility] [address] [id number] [place] [address]- 9852 Jul, [facility] [place] [facility] [address] [id number] [place] [address]- 2575 Jul, [facility] [place] [facility] [address] [id number] [place] [address]- 6192 Jul, [facility] [place] [facility] [address] [id number] [place] [address]- 5001 Jul, [facility] [place] [facility] [address] [id number] [place] [address]- 5732 Jul, [facility] [place] [facility] [address] [id number] [place] [address]- 7115 Jul, [facility] [place] [facility] [address] [id number] [place] [address]- 3736 Jun, [facility] [place] [facility] [address] [id number] [place] [address]- 4438 Jun, [facility] [place] [facility] [address] [id number] [place] [address]- 6569 May, [facility] [place] [facility] [address] [id number] [place] [address]- 6559 May, [facility] [place] [facility] [address] [id number] [place] [address]- 3162 10 May, 2013 [facility] [address] [id number] [place] [address]- 7303 10 May, 2013 [facility] [place] [facility] [address] [id number] [place] [address]- 6099 Apr, [facility] [address] [id number] [place] [address]- 9899 Apr, [facility] [place] [facility] [address] [id number] [place] [address]- 6273 18 Mar, 2013 [facility] [address] [id number] [place] [address]- 0646 18 Mar, 2013 [facility] [place] [facility] [address] [id number] [place] [address]- 8171 17 Mar, 2013 [facility] [address] [id number] [place] [address]- 1323 17 Mar, 2013 [facility] [address] [id number] [place] [address]- 4071 05 Mar, 2013 [facility] [place] [facility] [address] [id number] [place] [address]- 6139 05 Mar, 2013 [facility] [address] [facility] [id number] [place] [address]- 8068 Feb, [facility] [place] [facility] [address] [id number] [place] [address]- 7627 Feb, [facility] [place] [facility] [address] [id number] [place] [address]- 5722 14 Feb, 2013 [facility] [place] [facility] [address] [id number] [place] [address]- 8873 14 Feb, 2013 [facility] [place] [facility] [address] [id number] [place] [address]- 8078 05 Feb, 2013 [facility] [place] [facility] [address] [id number] [place] 7136 Feb, [facility] [place] [facility] [address] [id number] [place] [address]- 4092 Jan, [facility] [place] [facility] [address] [id number] [place] [address]- 0276 Jan, [facility] [place] [facility] [address] [id number] [place] [address]- 6477 Jan, [facility] [place] [facility] [address] [id number] [place] [address]- 0119 Jan, [facility] [place] [facility] [address] [id number] [place] [address]- 2497 Jan, [facility] [place] [facility] [address] [id number] [place] [address]- 3441 Jan, [facility] [place] [facility] [address] [id number] [place] [address]- 1409 Dec, [facility] [place] [facility] [address] [id number] [place] [address]- 2221 Dec, [facility] [place] [facility] [address] [id number] [place] [address]- 4468 Nov, [facility] [place] [facility] [address] [id number] [place] [address]- 3046 Nov, [facility] [place] [facility] [address] [id number] [place] [address]- 2972 Oct, [facility] [place] [facility] [address] [id number] [place] [address]- 1047 Oct, [facility] [place] [facility] [address] [id number] [place] [address]- 9692 Oct, [facility] [place] [facility] [address] [id number] [place] [address]- 6499 Oct, [facility] [place] [facility] [address] [id number] [place] [address]- 2549 Oct, [facility] [place] [facility] [address] [id number] [place] [address]- 5527 Oct, [facility] [address] [id number] [place] [address]- 0380 Sep, [facility] [place] [facility] [address] [id number] [place] [address]- 9965 Sep, [facility] [address] [id number] [place] [address]- 5967 Sep, [facility] [place] [facility] [address] [id number] [place] [address]- 6449 Sep, [facility] [address] [id number] [place] [address]- 7825 August, [facility] [address] [id number] [place] [address]- 0227 August, [facility] [address] [id number] [place] [address]- 8429 August, [facility] [address] [id number] [place] [address]- 5480 August, [facility] [address] [id number] [place] [address]- 6253 August, [facility] [address] [id number] [place] [address]- 9791 Jul, [facility] [place] [facility] [address] [id number] [place] [address]- 5302 Jul, [facility] [place] [facility] [address] [id number] [place] [address]- 4987 15 Jul, 2012 [facility] [place] [facility] [address] [id number] [place] [address]- 6973 Jul, [facility] [place] [facility] [address] [id number] [place] [address]- 8409 Jul, [facility] [place] [facility] [address] [id number] [place] [address]- 2312 Jul, [facility] [place] [facility] [address] [id number] [place] [address]- 7586 08 Jul, 2012 [facility] [address] [id number] [place] [address]- 8416 Jul, [facility] [address] [id number] [place] [address]- 2546 Jul, [facility] [address] [id number] [place] [address]- 2546 Jul, [facility] [address] [id number] [place] [id number] Jun, [facility] [address] [id number] [place] [address]- 3656 Jun, [facility] [address] [id number] [place] [address]- 1656 Jun, [facility] [address] [id number] [place] [address]- 3956 Jun, [facility] [address] [id number] [place] [address]- 2716 Jun, [facility] [address] [id number] [place] [address]- 4601 May, [facility] [address] [id number] [place] [address]- 2173 May, [facility] [address] [id number] [place] [address]- 0756 May, [facility] [address] [id number] [place] [address]- 0316 Apr, [facility] [address] [id number] [place] [address]- 8066 Apr, [facility] [address] [id number] [place] [address] Apr, [facility] [address] [id number] [place] [address] Apr, [facility] [address] [id number] [place] [address] Apr, [facility] [place] [facility] [address] [id number] [place] [address] Apr, [facility] [place] [facility] [address] [id number] [place] [address] Mar, [facility] [place] [facility] [address] [id number] [place] [address] Mar, [facility] [place] [facility] [address] [id number] [place] [address] Mar, [facility] [place] [facility] [address] [id number] [place] [address] Mar, [facility] [place] [facility] [address] [id number] [place] [address] Feb, [facility] [place] [facility] [address] [id number] [place] [address] Feb, [facility] [place] [facility] [address] [id number] [place] [address] Feb, [facility] [place] [facility] [address] [id number], [place] [address] Feb, [facility] [place] [facility] [address] [facility] [id number], [place] [address] Feb, [facility] [place] [facility] [address] [id number], [place] [address] Feb, [facility] [place] [facility] [address] [id number] [place] [address] Feb, [facility] [place] [facility] [address] [id number], [place] [address] Feb, [facility] [place] [facility] [address] [facility] [id number], [place] [address] Feb, [facility] [place] [facility] [address] [id number], [place] [address] Feb, [facility] [place] [facility] [address] [id number] [place] [address] Feb, [facility] [place] [facility] [address] [id number] [place] [address] Feb, [facility] [place] [facility] [address] [facility] [id number] [place] [address] Feb, [facility] [place] [facility] [address] [id number] [place] [address] Feb, [facility] [place] [facility] [address] [facility] [id number] [place] [address] Feb, [facility] [place] [facility] [address] [facility] [id number] [place] [address]- [address] Feb, [facility] [place] [facility] [address] [facility] [id number], [place] [address] Jan, [facility] [place] [facility] [address] [facility] [id number][place] [address] Jan, [facility] [place] [facility] [address] [facility] [id number], [place] [address] Jan, [facility] [place] [facility] [address] [facility] [id number], [place] [address] Jan, [facility] [place] [facility] [address] [facility] [id number], [place] [address] 30 Jan, 2012 [facility] [place] [facility] [address] [facility] [id number], [place] [address] Jan, [facility] [place] [facility] [address] [facility] [id number], [place] [address] Jan, [facility] [place] [facility] [address] [facility] [id number], [place] [address] Jan, [facility] [place] [facility] [address] [facility] [id number], [place] [address] Jan, [facility] [place] [facility] [address] [id number] [place] [address] 15 Jan, 2012 [facility] [place] [facility] [address] [id number] [place] [address] 15 Jan, 2012 [facility] [place] [facility] [address] [id number] [place] [address] Jan, [facility] [place] [facility] [address] [id number] [place] [address]46 26 Dec, 2011 [facility] [place] [facility] [address] [id number] [place] [address] 26 Sep, 2011 [facility] [place] [facility] [address] [id number] [place] [address] 24 Dec, 2011 [facility] [place] [facility] [address] [id number] [place] [address]- [address] 23 Dec, 2011 [facility] [place] [facility] [address] [id number] [place] [address] 22 Dec, 2011 [facility] [place] [facility] [address] [id number] [place] [address] 2545 21 Dec, 2011 [facility] [place] [facility] [address] [id number] [place] [address]43 20 Dec, 2011 [facility] [place] [facility] [address] [id number] [place] [address] 2541 20 Dec, 2011 [facility] [place] [facility] [address] [id number] [place] [address]46 07 Sep, 2011 [facility] [place] [facility] [address] [id number] [place] [address]46 06 Sep, 2011 [facility] [place] [facility] [address] [id number] [place] [address] 2546 06 Sep, 2011 [facility] [place] [facility] [address] [id number] [place] [address]46 05 Sep, 2011 [facility] [place] [facility] [address] [id number] [place] [address] Nov, [facility] [place] [facility] [address] [id number] [place] [address] Nov, [facility] [place] [facility] [address] [id number] [place] [address]- [address] Nov, [facility] [place] [facility] [address] [id number] [place] [address]- [address] Nov, [facility] [place] [facility] [address] [id number] [place] [address] Nov, [facility] [place] [facility] [address] [id number] [place] [address] Nov, [facility] [place] [facility] [address] [id number] [place] [address] Nov, [facility] [place] [facility] [address] [id number] [place] [address] Nov, [facility] [place] [facility] [address] [id number] [place] [address] Oct, [facility] [place] [facility] [address] [id number] [place] [address] Oct, [facility] [place] [facility] [address] [id number] [place] [address] Oct, [facility] [place] [facility] [address] [id number] [place] [address] Oct, [facility] [place] [facility] [address] [id number] [place] [address] Oct, [facility] [place] [facility] [address] [id number] [place] [address] Oct, [facility] [place] [facility] [address] [id number] [place] [address]6 Oct, [facility] [place] [facility] [address] [id number] [place] [address] Sep, [facility] [place] [facility] [address] [id number] [place] [address] Sep, [facility] [address] [id number] [place] [address] August, [facility] [place] [facility] [address] [id number] [place] [address] August, [facility] [address] [id number] [place] [address] August, [facility] [place] [facility] [address] [id number] [place] [address] August, [facility] [address] [id number] [place] [address]702 Jul, [facility] [place] [facility] [address] [id number] [place] [address] Jul, [facility] [address] [id number] [place] [address] 4967 Jul, [facility] [address] [id number] [place] [address] Jul, [facility] [place] [facility] [address] [id number] [place] [address] Jul, [facility] [address] [id number] [place] [address] Jul, [facility] [place] [facility] [address] [id number] [place] [address] 7758 Jul, [facility] [place] [facility] [address] [id number] [place] [address] 7498 Jul, [facility] [place] [facility] [address] [id number] [place] [address] 4925 Jul, [facility] [place] [facility] [address] [id number] [place] [address] Jun, [facility] [place] [facility] [address] [id number] [place] [address] 1400 Jun, [facility] [place] [facility] [address] [id number] [place] [address] 15 Jun, 2011 [facility] [place] [facility] [address] [id number] [place] [address]- [address] 14 Jun, 2011 [facility] [place] [facility] [address] [id number] [place] [address]- [address] 12 Jun, 2011 [facility] [place] [facility] [address] [id number] [place] [address] 1175 09 Jun, 2011 [facility] [place] [facility] [address] [id number] [place] [address] 9827 09 Jun, 2011 [facility] [place] [facility] [address] [id number] [place] [address] 8416 25 May, 2011 [facility] [place] [facility] [address] [id number] [place] [address] 4157 24 May, 2011 [facility] [place] [facility] [address] [id number] [place] [address] 9701 16 May, 2011 [facility] [place] [facility] [address] [id number] [place] [address] 8929 May, [facility] [place] [facility] [address] [id number] [place] [address] 4867 May, [facility] [place] [facility] [address] [id number] [place] [address] 13[address] Apr, [facility] [place] [facility] [address] [id number] [place] [address] Apr, [facility] [place] [facility] [address] [id number] [place] [address] 7410 Apr, [facility] [place] [facility] [address] [id number] [place] [address] 9359 Apr, [facility] [place] [facility] [address] [id number] [place] [address]- 8085 05 Apr, 2011 [facility] [place] [facility] [address] [id number], [place] [address] Mar, [facility] [place] [facility] [address] [id number] [place] [address] 1153 Mar, [facility] [place] [facility] [address] [id number] [place] [address] Mar, [facility] [place] [facility] [address] [id number] [place] [address] Mar, [facility] [place] [facility] [address] [id number] [place] [address] 9771 Mar, [facility] [place] [facility] [address] [id number] [place] [address] 4[address] Mar, [facility] [place] [facility] [address] [id number] [place] [address] 6998 Mar, [facility] [place] [facility] [address] [facility] [id number], [place] [address] Feb, [facility] [place] [facility] [address] [id number] [place] [address] 5223 Feb, [facility] [place] [facility] [address] [facility] [id number] [place] [address] Feb, [facility] [place] [facility] [address] [facility] [id number] [place] [address]- 1566 Feb, [facility] [place] [facility] [address] [id number], [place] [address] Jan, [facility] [place] [facility] [address] [id number], [place] [address] 8765 Jan, [facility] [place] [facility] [address] [id number] [place] [address] 7134 Jan, [facility] [place] [facility] [address] [facility] [id number] [place] [address]- 8723 Jan, [facility] [place] [facility] [address] [facility] [id number], [place] [address] Nov, [facility] [place] [facility] [id number] [address] Mar, [facility] [id number] [address] Mar, [facility] [id number] [address] Mar, [facility] [id number] [address] Mar, [facility] [id number] [address] Mar, [facility] [id number] [address] Mar, [facility] [id number] [address] Feb, [facility] [id number], [place] [address] Feb, [facility] [id number], [place] [address] Jan, [facility] [id number], [place] [address] Jan, [facility] [address] [id number], [place] [address] Jan, IMMUNIZATIONS No Known Immunizations SOCIAL HISTORY Never Assessed REASON FOR VISIT PLAN OF CARE VITAL SIGNS MEDICATIONS Medication Instructions Dosage Frequency Start Date End Date Duration Status Cipro 250 MG Orally every 12 hrs 1 tablet 12h Apr, Apr, 05 days Active RESULTS No Results PROCEDURES No [...] 2020 & 2007 Surgical History Bladder surgery [facility] 03/2016 Hospitalization History Surgeries Only Hospitalization History 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
[2018-05-29] MEDS ORDERED: FLUT250D2 IH (08:39)
[2018-05-29] MEDS ORDERED: NITR-68 PO (08:39)
[2018-05-29] MEDS ORDERED: MONT10TA24 PO (08:39)
[2018-05-29] MEDS ORDERED: PREG150C PO (08:39)
[2018-05-29] MEDS ORDERED: CHOL500049 PO (08:39)
[2018-05-29] MEDS ORDERED: DICLOFENAC SOD TOP (08:39)
[2018-05-29] MEDS ORDERED: CHOL10007 PO (08:39)
[2018-05-29] MEDS ORDERED: OXYC-471 PO (08:39)
[2018-05-29] MEDS ORDERED: SUMA100T3 PO (08:39)
[2018-05-29] MEDS ORDERED: FLUTICASONE PROP (08:39)
[2018-05-29] MEDS ORDERED: ROPI5TAB3 PO (08:39)
--- OUTSIDE RECORDS SUMMARY | 2018-05-29 08:39 | XMS REPORT ---
Author Author KEIRA FORD [facility] Address [address] [place] [address] Care Team Providers Care Nurses Aide Name Role Phone KEIRA FORD Unavailable PROBLEMS Type Condition ICD9-CM Code GMS86-CX Code Onset Dates Condition Status SNOMED Code Problem Long-term use of high-risk medication Z79.899 Active 961353975 Problem Abnormal chest CT R93.8 Active 732376627 Problem Low back pain M54.5 Active 055217694 Problem Generalized anxiety disorder F41.1 Active 58740832 Problem Dysthymic disorder F34.1 Active 35271711 Problem Coronary artery disease involving [place] coronary artery of [place] heart, angina presence unspecified I25.10 Active 7817040949863 Problem Depressed F32.9 Active 13318974 Problem Fibromyalgia M79.7 Active 893143300 Problem Hypothyroid E03.9 Active 50436742 Problem Essential (primary) hypertension I10 Active 39870119 Problem Insomnia G47.00 Active 482122590 Problem Vitamin D deficiency E55.9 Active 07736067 Problem Anemia in chronic kidney disease D63.1 Active 435526422140914 Problem Chronic kidney disease, unspecified N18.9 Active 734256114 Problem Body mass index (BMI) of 40.0-44.9 in adult Z68.41 Active 381356311 Problem Stage 3 chronic kidney disease N18.3 Active 550564483 Problem Restless leg G25.81 Active 85478435 Problem Palpitations R00.2 Active 46208697 Problem Asthma J45.909 Active 975251376 Problem Primary osteoarthritis of left knee M17.12 Active 705576593 Problem Bipolar disorder, current episode manic without psychotic features F31.10 Active 905862016 Problem Mood disorder F39 Active 15624367 Problem Degenerative tear of medial meniscus of left knee M23.204 Active 121845208 Problem History of colon polyps Z86.010 Active 415704572 Problem Asthma with acute exacerbation in adult J45.901 Active 513800022 Problem Chronic kidney disease, stage 4 (severe) N18.4 Active 949868303 Problem Functional diarrhea K59.1 Active 50773048 Problem Hypokalemia E87.6 Active 26293325 Problem Mixed stress and urge urinary incontinence N39.46 Active 234548932 Problem History of anemia Z86.2 Active 320688136 Problem Other seasonal allergic rhinitis J30.2 Active 635349384 ALLERGIES No Information ENCOUNTERS Encounter Location Date Diagnosis [facility] [id number] [place] [address] 03271- 6741 Sep, [facility] [address] 91358- 3184 August, [facility] [id number] [place] [address] 47475- 8676 August, [facility] [address] 88034- 3154 August, Abnormal chest [address] R93.8 [facility] [id number] [place] [address] 66478- 1699 August, Generalized anxiety disorder F41.1 and Major depressive disorder, recurrent episode with anxious distress F33.9 [facility] [id number] [place] [address] 92156- 7[address] August, Ab[address] chest [address] R93.8 [facility] [id number] [place] [address] 93147- 8999 Jul, [facility] [address] 41333- 4566 Jul, Chronic kidney disease, stage 4 (severe) N18.4 [facility] [address] 61534- 6800 Jul, [facility] [id number] [place] [address] 10312- 1510 Jul, Restless leg G25.81 ; Mixed stress and urge urinary incontinence N39.46 and Fibromyalgia M79.7 [facility] [id number] [place] [address] 89992- 4121 Jul, Chronic kidney disease, stage 4 (severe) N18.4 [facility] [id number] [place] [address] 90615- 8492 Jun, Orthostatic hypotension I95.1 ; Chronic kidney disease, stage 4 (severe) N18.4 ; Chest wall discomfort R07.89 and Body mass index (BMI) of 40.0-44.9 in adult Z68.41 [facility] [id number] [place] [address] 86347- 4287 Jun, [facility] [place] [address] 19027- 7605 Jun, Orthostatic hypotension I95.1 [facility] [id number] [place] [address] 83236- 9374 Jun, [facility] [id number] [place] [address] 24135 -7151 Jun, Orthostatic hypotension I95.1 ; Dysuria R30.0 and Acute cystitis without hematuria N30.00 [facility] [id number] [place] [address] 28345- 0216 Jun, [facility] [id number] [place] [address] 86522- 5282 Jun, Chronic kidney disease, stage 4 (severe) N18.4 [facility] [id number] [place] [address] 59569- 0384 Jun, Fibromyalgia M79.7 [facility] [id number] [place] [address] 96373- 8085 Jun, [facility] [id number] [place] [address] 57223- 8274 Jun, [facility] [id number] [place] [address] 61571- [address] May, [address] R93.8 and Stage 3 chronic kidney disease N18.3 [facility] [address] [address] 4045 May, Chronic kidney disease, stage 4 (severe) N18.4 [facility] [address] [address]- 0821 May, Chronic kidney disease, stage 4 (severe) N18.4 [facility] [address] [place] [address] 21973- [address] May, [address] R93.8 [facility] [id number] [place] [address] 47232- 1555 May, [facility] [id number] [place] [address] 84596- 8523 May, [facility] [id number] [place] [address] 16943- 1854 May, Generalized anxiety disorder F41.1 and Major depressive disorder, recurrent episode with anxious distress F33.9 [facility] [address] [place] [address] 39003- 2789 May, Mood disorder F39 [facility] [address] [place] [address] 88169- 4312 Apr, [facility] [address] [place] [address] 57560- 0925 Apr, Infected skin lesion L08.9 and Muscle strain of right shoulder region, initial encounter S46.911A [facility] [address] [place] [address] 69350- 0469 Apr, Generalized anxiety disorder F41.1 and Major depressive disorder, recurrent episode with anxious distress F33.9 [facility] [address] [address]- 8529 Apr, [facility] [address] [place] [address] 32244- 2166 Apr, Recent urinary tract infection Z87.440 and Hypothyroid E03.9 [facility] [address] [place] [address] 78358- 5603 Apr, Generalized anxiety disorder F41.1 and Major depressive disorder, recurrent episode with anxious distress F33.9 [facility] [id number] [place] [address] 21656- 5082 Apr, Recent urinary tract infection Z87.440 [facility] [id number] [place] [address] 10028- 8091 Mar, [facility] [id number] [place] [address] 24684 -5410 Mar, Dysuria R30.0 ; Acute cystitis without hematuria N30.00 and BMI 40.0-44.9, adult Z68.41 [facility] [id number] [place] [address] 86098- 2181 Mar, [facility] [id number] [place] [address] 84481- 6743 Mar, [facility] [id number] [place] [address] 41882- 2002 Mar, Generalized anxiety disorder F41.1 and Major depressive disorder, recurrent episode with anxious distress F33.9 [facility] [address] [place] [address] 78165- 1384 Feb, Conjunctivitis, bacterial H10.9 [facility] [address] [place] [address] 93639- 8154 Feb, [facility] [id number] [place] [address] 75469 -7013 Feb, Conjunctivitis, bacterial H10.9 [facility] [id number] [place] [address] 21978- 6101 15 Feb, 2017 [facility] [id number] [place] [address] 32171 -6289 Feb, Dysuria R30.0 ; Acute cystitis N30.00 and BMI 40.0-44.9, adult Z68.41 [facility] [address] 42190- 0564 Feb, [facility] [id number] [place] [address] 06830- 4504 Feb, Generalized anxiety disorder F41.1 and Major depressive disorder, recurrent episode with anxious distress F33.9 [facility] [address] 81066- 4945 Feb, Mood disorder F39 and BMI 40.0-44.9, adult Z68.41 [facility] [place] [address] 34914- 1531 Jan, [facility] [place] [address] 33420- 1951 Jan, [place] [address] 95855- 0031 Jan, Hypothyroid E03.9 [facility] [address] 18315- 0482 Jan, [facility] [place] [id number] [place] [address] 84323- 2705 Jan, Chronic kidney disease, unspecified N18.9 ; Hypokalemia E87.6 ; Essential (primary) hypertension I10 ; Fibromyalgia M79.7 ; Coronary artery disease involving [place] coronary artery of [place] heart, angina presence unspecified I25.10 ; Hypothyroid E03.9 and Encounter for immunization Z23 [facility] [id number] [place] [address] 32228- 7251 Jan, Hypothyroid E03.9 [facility] [id number] [place] [address] 89333- 6205 Jan, [facility] [place] [address] 80772- 8279 Dec, Vitamin D deficiency E55.9 [facility] [address] [address]- 9342 28 Dec, 2016 Primary osteoarthritis of left knee M17.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 [facility] [address] [place] [address] 68329- 0351 19 Dec, 2016 Fibromyalgia M79.7 [facility] [id number] [place] [address] 69214- 6376 18 Sep, 2016 Mood disorder F39 [facility] [id number] [place] [address] 30311- 9802 13 Dec, 2016 [place] [facility] [id number] [place] [address] 58193- 4690 13 Dec, 2016 Generalized anxiety disorder F41.1 and Major depressive disorder, recurrent episode with anxious distress F33.9 [facility] [address] [place] [address] 86804- 4841 11 Dec, 2016 [facility] [address] [place] [address] 46173- 8337 08 Sep, 2016 Streptococcal meningitis G00.2 [facility] [address] [place] [address] 62890- 5111 07 Dec, 2016 Streptococcal meningitis G00.2 [facility] [address] [address]- 1429 07 Dec, 2016 [facility] [address] [place] [address] 19344- 2540 06 Dec, 2016 [facility] [address] [place] [address] 43704- 2544 06 Sep, 2016 Streptococcal meningitis G00.2 [facility] [address] [address]- 2547 06 Sep, 2017 Major depressive disorder, recurrent episode with anxious distress F33.9 [facility] [id number] [place] [address] 16514- 9424 Nov, Fever, unspecified fever cause R50.9 [facility] [address] [place] [address] 88153- 1174 Nov, [facility] [id number] [place] [address] 11282- 4673 Nov, Hypothyroid E03.9 [facility] [id number] [place] [address] 34602- 2817 Nov, Generalized anxiety disorder F41.1 and Major depressive disorder, recurrent episode with anxious distress F33.9 [facility] [id number] [place] [address] 25125- 9465 Nov, [facility] [id number] [place] [address] [id number] Oct, Dental examination Z01.20 [facility] [id number] [place] [address] 25292- 4422 Oct, Generalized anxiety disorder F41.1 and Major depressive disorder, recurrent episode with anxious distress F33.9 [facility] [id number] [place] [address] 86080- 3938 Oct, Chronic kidney disease, stage 4 (severe) N18.4 [facility] [id number] [place] [address] 79967- 4701 Oct, [facility] [id number] [place] [address] 08012- 3068 Oct, Fibromyalgia M79.7 [facility] [id number] [place] [address] 41031- 6470 Oct, [facility] [id number] [place] [address] 51815- 2042 Oct, Generalized anxiety disorder F41.1 ; Major depressive disorder, recurrent episode with anxious distress F33.9 and Bipolar disorder, current episode manic without psychotic features F31.10 [facility] [id number] [place] [address] 17193- 7438 Sep, [facility] [address] [address]- 2180 Sep, [facility] [place] [address] [place] [address] 77103- 8663 15 Sep, 2016 Vitamin D deficiency E55.9 [facility] [address] [address]- 8182 14 Sep, 2016 Vitamin D deficiency E55.9 [facility] [address] [address]- 2457 Sep, [facility] [id number] [place] [address] 74040- 4009 07 Sep, 2016 Chronic kidney disease, stage 4 (severe) N18.4 ; Hypothyroid E03.9 ; Restless leg G25.81 ; Fibromyalgia M79.7 ; Essential ( primary) hypertension I10 ; Vitamin D deficiency E55.9 ; Dyspepsia R10.13 ; Anemia in chronic kidney disease D63.1 ; Chronic kidney disease, unspecified N18.9 ; Coronary artery disease involving [place] coronary artery of [place] heart , angina presence unspecified I25.10 ; Screening breast examination Z12.39 and Low back pain M54.5 [facility] [address] [address] 1982 August, Generalized anxiety disorder F41.1 and Major depressive disorder, recurrent episode with anxious distress F33.9 [facility] [address] [address]- 9834 August, Generalized anxiety disorder F41.1 and Major depressive disorder, recurrent episode with anxious distress F33.9 [facility] [address] [address]- 2969 August, Fibromyalgia M79.7 [facility] [address] [place] [address] 49936- 4234 Jul, Generalized anxiety disorder F41.1 and Major depressive disorder, recurrent episode with anxious distress F33.9 [facility] [address] [address]- 0826 Jul, Fibromyalgia M79.7 [facility] [id number] [place] [address] 06848- 8357 Jul, Generalized anxiety disorder F41.1 [facility] [id number] [place] [address] 67610- 4258 May, [facility] [id number] [place] [address] 93773- 7960 May, Hypothyroid E03.9 [place] [id number] [place] [address] 49682- 1475 May, Chronic kidney disease, stage 4 (severe) N18.4 ; Hypothyroid E03.9 ; Restless leg G25.81 ; Fibromyalgia M79.7 ; Essential ( primary) hypertension I10 ; Vitamin D deficiency E55.9 ; Dyspepsia R10.13 ; Acute non-recurrent maxillary sinusitis J01.00 ; Anemia in chronic kidney disease D63.1 ; Chronic kidney disease, unspecified N18.9 and Coronary artery disease involving [place] coronary artery of [place] heart, angina presence unspecified I25.10 [facility] [address] [place] [address] 04630- 2753 May, Vitamin D deficiency, unspecified E55.9 [facility] [address] [place] [address] 56676- 9634 May, Generalized anxiety disorder F41.1 and Major depressive disorder, recurrent episode with anxious distress F33.9 [facility] [address] [place] [address] 24918- 2021 Apr, Pain in right knee M25.561 and Pain in left knee M25.562 [facility] [address] [place] [address] 38538- 7968 Apr, [facility] [id number] [place] [address] 01297- 8108 Apr, [facility] [address] [place] [address] 69541- 8799 Apr, [facility] [id number] [place] [address] 15694- 6810 Mar, Generalized anxiety disorder F41.1 and Major depressive disorder, recurrent episode with anxious distress F33.9 [facility] [id number] [place] [address] 24544- 4079 Mar, Generalized anxiety disorder F41.1 and Major depressive disorder, recurrent episode with anxious distress F33.9 [facility] [place] [id number] [place] [address] 45208- 7837 Mar, [facility] [id number] [place] [address] 50000- 3580 Mar, [facility] [id number] [place] [address] 96065- 1057 Mar, [facility] [id number] [place] [address] 29509- 8302 Mar, Asthma J45.909 and Fibromyalgia M79.7 [facility] [id number] [place] [address] 36927- 5932 Mar, Chronic kidney disease, stage 4 (severe) N18.4 ; Vitamin D deficiency E55.9 and Essential (primary) hypertension I10 [facility] [place] [id number] [place] [address] 93277- 4964 Feb, [facility] [id number] [place] [address] 18666- 6147 Feb, Dysuria R30.0 ; Mixed stress and urge urinary incontinence N39.46 ; Fibromyalgia M79.7 and Chronic kidney disease, stage IV (severe) N18.4 [facility] [id number] [place] [address] 18178- 7459 Feb, Chronic kidney disease, stage 4 (severe) N18.4 [facility] [place] [address] [place] [address]- 7660 Feb, Chronic kidney disease, stage 4 (severe) N18.4 [facility] [address] 11243- 3743 Feb, [facility] [id number] [place] [address] 72561- 8857 Feb, Vitamin D deficiency, unspecified E55.9 [facility] [id number] [place] [address] 28992- 9792 Jan, [facility] [id number] [place] [address] 36248- 0758 Jan, [facility] [id number] [place] [address] 37404- 7394 Dec, [facility] [id number] [place] [address] 78404- 5081 Dec, Chronic kidney disease, stage 4 (severe) N18.4 [facility] [id number] [place] [address] 72486- 4971 Dec, Dysthymic disorder F34.1 and Generalized anxiety disorder F41.1 [facility] [id number] [place] [address] 76020- 8393 Dec, [facility] [id number] [place] [address] 98231- 0651 Dec, [facility] [id number] [place] [address] 54137- 4362 Dec, Dysthymic disorder F34.1 and Generalized anxiety disorder F41.1 [facility] [id number] [place] [address] 17233- 5257 Dec, Dysuria R30.0 ; Chronic kidney disease, stage 4 (severe) N18.4 ; Hypertension I10 ; Dyspepsia R10.13 ; Yeast dermatitis B37.2 ; Palpitations R00.2 ; Hypothyroid E03.9 ; Functional diarrhea K59.1 and Other seasonal allergic rhinitis J30.2 [facility] [address] 46907 -3059 Dec, [facility] [address] 39702 -1205 Nov, Dysuria R30.0 and Stress incontinence N39.3 [place] [address] 06577- 7219 Nov, [facility] [place] [address] 86187- 9305 Nov, [facility] [address] 27223- 8782 Nov, Osteoarthritis of knees, bilateral M17.0 [place] [address] 07000- 7189 Nov, Dysthymic disorder F34.1 and Generalized anxiety disorder F41.1 [facility] [place] [address] 73059- 1811 Nov, [facility] [place] [address] 18750- 2947 Nov, [facility] [id number] [place] [address] 46679- 1638 Nov, Urgency of urination R39.15 [facility] [place] [address] 62000- 1289 Nov, [facility] [id number] [place] [address] 71165- 3176 Nov, Chronic kidney disease, stage 4 (severe) N18.4 [facility] [address] 82637- 4906 Oct, Hypertension I10 ; Coronary artery disease involving [place] coronary artery of [place] heart, angina presence unspecified I25.10 ; Palpitations R00.2 ; Hypothyroid E03.9 ; Right foot pain M79.671 ; Functional diarrhea K59.1 and Other seasonal allergic rhinitis J30.2 [facility] [id number] [place] [address] 97730- 0147 Oct, Dysthymic disorder F34.1 and Generalized anxiety disorder F41.1 [facility] [place] [id number] [place] [address] 50309- 6046 Sep, [facility] [address] 60418- 5445 Sep, [facility] [place] [id number] [place] [address] 58640- 8694 Sep, [facility] [place] [address] 86850- 5381 Sep, [facility] [place] [address] 12284- 1711 Sep, [facility] [id number] [place] [address] 69510- 0062 Sep, Dysthymic disorder F34.1 and Generalized anxiety disorder F41.1 [facility] [place] [address] 85623- 3050 16 Sep, 2015 Asthma with acute exacerbation in adult J45.901 ; Dysuria R30.0 ; Chronic kidney disease, stage 4 (severe) N18.4 and History of anemia Z86.2 [facility] [place] [id number] [place] [address] 89332- 1450 Sep, Generalized anxiety disorder F41.1 and Dysthymic disorder F34.1 [place] [address] [address] [place] [id number] [place] [address] 95625- 2710 August, Screening breast examination Z12.39 and Acute recurrent maxillary sinusitis J01.01 [place] [address] [address] [place] [id number] [place] [address] 33074- 1899 August, Osteoarthritis of knees, bilateral M17.0 [place] [address] [address] [place] [id number] [place] [address] 77343- 7702 August, Chronic kidney disease, stage 4 (severe) N18.4 ; Acute non- recurrent maxillary sinusitis J01.00 ; Urinary problem R39.89 ; Bowel habit changes R19.4 ; Functional diarrhea K59.1 and History of colon polyps Z86.010 [place] [id number] [place] [address] 37369- 1675 Jul, Dysthymic disorder F34.1 and Generalized anxiety disorder F41.1 [place] [address] [address] [place] [id number] [place] [address] 99449- 1858 Jul, [place] [address] [address] [place] [id number] [place] [address] 67758- 4690 Jul, Dysthymic disorder F34.1 ; Generalized anxiety disorder F41.1 and assisted use of drug Z79.899 [place] [address] [address] [place] [id number] [place] [address] 41092- 1697 Jul, [place] [address] [place] [id number] [place] [address] 45536- 0498 Jun, [place] [address] [address] [place] [id number] [place] [address] 95685- 5766 08 Jun, 2015 [place] [address] [address] [place] [id number] [place] [address] 72429- 8691 17 May, 2015 [place] [id number] [place] [address] 98256- 6787 May, Dysthymic disorder F34.1 and Generalized anxiety disorder F41.1 [place] [id number] [place] [address] 86430- 0423 Apr, Kidney disease N28.9 [place] [id number] [place] [address] 01172- 0635 Apr, Generalized anxiety disorder F41.1 and Dysthymic disorder F34.1 [place] [id number] [place] [address] 08708- 5644 Apr, Chronic kidney disease, stage 4 (severe) N18.4 [place] [address] 70180- 9831 Apr, Generalized anxiety disorder F41.1 ; Major depression, recurrent F33.9 and Sleep disturbance G47.9 [place] [address] 58330- 4706 Mar, Generalized anxiety disorder F41.1 and Dysthymic disorder F34.1 [place] [address] 97265- 4615 Mar, Generalized anxiety disorder F41.1 ; Dysthymic disorder F34.1 and Insomnia G47.00 [place] [address] 63329- 8571 Mar, [address] 57307- 3114 Mar, [place] [address] 44426- 3366 Mar, Osteoarthritis of knees, bilateral M17.[address] 54639- 0616 Mar, Hypertension I10 ; Hypothyroid E03.9 ; Dysthymic disorder F34.1 ; Chronic kidney disease, stage 4 (severe) N18.4 and Nausea & vomiting R11.2 [place] [address] 45400- 0201 Mar, Generalized anxiety disorder F41.1 ; Dysthymic disorder F34.1 and Insomnia G47.[address] 08258- 0876 Mar, Dehydration E86.0 ; Chronic kidney disease, stage 4 (severe ) N18.4 and Nausea & vomiting R11.2 [facility] [address] [address] -9146 Mar, Gastroenteritis K52.9 [place] [id number] [place] [address] 77642- 8860 Mar, [place] [id number] [place] [address] 08908- 7291 Mar, [place] [id number] [place] [address] 91769- 6648 Feb, Dysthymic disorder F34.1 and Generalized anxiety disorder F41.1 [place] [id number] [place] [address] 97050- 4257 Jan, UTI (urinary tract infection) N39.0 ; Asthma J45.909 ; Coronary artery disease involving [place] coronary artery of [place] heart, angina presence unspecified I25.10 ; Hypertension I10 ; Hypothyroid E03.9 ; Vitamin D deficiency E55.9 ; Insomnia G47.00 ; Palpitations R00.2 ; Depressed F32.9 ; Restless leg G25.81 and Anxiety F41.9 [place] [id number] [place] [address] 81080- 7807 Jan, Dysthymic disorder F34.1 and Generalized anxiety disorder F41.1 [place] [id number] [place] [address] 68820- 0671 Jan, [place] [id number] [place] [address] 30994- 4970 Dec, [place] [id number] [place] [address] 16771- 0411 28 Dec, 2014 Alkalosis 276.3 ; Chronic kidney disease, 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.4 ; Hyperpotassemia 276.7 ; Secondary hyperparathyroidism, renal 588.81 ; Proteinuria 791.0 ; Unspecified vitamin D deficiency 268.9 ; Anemia in chronic kidney disease 285.21 ; Other and unspecified hyperlipidemia 272.4 ; Hypertension, essential, benign 401.1 and Chronic kidney disease (CKD), stage III (moderate) 585.3 [place] [id number] [place] [address] 79606- 0385 Dec, [place] [id number] [place] [address] 13019- 9891 Dec, Depressive disorder, not elsewhere classified 311 and Generalized anxiety disorder 300.02 [place] [id number] [place] [address] 20891- 0152 Dec, [place] [id number] [place] [address] 32776- 7593 Dec, [place] [id number] [place] [address] 18125- 6732 Nov, Depressive disorder, not elsewhere classified 311 and Generalized anxiety disorder 300.02 [address] [id number] [place] [address] 08935- 5612 Nov, Arthritis of both knees 716.[address] 51269- 2444 Nov, PAF (paroxysmal atrial fibrillation) 427.31 ; CAD (coronary artery disease) 414.00 ; Chest pain 786.50 and Chronic kidney disease (CKD) stage G4/A1, severely decreased glomerular filtration rate (GFR) between 15-29 mL/min/1.73 square meter and albuminuria creatinine ratio less than 30 mg/g 585.4 [address] [place] [address] 27484- 6223 Oct, Coronary atherosclerosis of unspecified type of vessel, [place] or graft 414.00 ; Chronic kidney disease, 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.4 ; Hypertension 401.9 and Edema 782.3 [address] [place] [address] 24217- 3709 Oct, Depressive disorder, not elsewhere classified 311 and Generalized anxiety disorder 300.02 [place] [id number] [place] [address] 88982- 9181 Oct, Depressive disorder, not elsewhere classified 311 and Generalized anxiety disorder 300.02 [address] [id number] [place] [address] 44586- 9113 Oct, [facility] [id number] [place] [address] 65025- 5542 Oct, [facility] [address] 02136- 0154 Sep, [facility] [id number] [place] [address] 62885- 9915 Sep, Chronic kidney disease, 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.4 [facility] [address] 35841- 7040 Sep, [facility] [address] 52584- 1196 Sep, Coronary atherosclerosis of unspecified type of vessel, [place] or graft 414.00 ; Hypertension 401.9 ; Edema 782.3 and Hypothyroidism 244.9 [place] [address] 93533- 8764 Sep, Coronary atherosclerosis of unspecified type of vessel, [place] or graft 414.00 ; Hypertension 401.9 ; Fibromyalgia 729.1 ; Edema 782.3 ; Hypothyroidism 244.9 and Anemia 285.9 [facility] [id number] [place] [address] 99676- 5528 Sep, Anxiety disorder, unspecified 300.00 and Depressive disorder , not elsewhere classified 311 [facility] [id number] [place] [address] 21143- 1039 Sep, [facility] [id number] [place] [address] 55964- 5315 August, Generalized anxiety disorder 300.02 [facility] [address] 37969- 5354 August, Closed fracture of lateral malleolus 824.2 [facility] [id number] [place] [address] 16026- 3518 Jul, [facility] [address] 39443- 8261 Jul, [facility] [place] [facility] [address] [id number] [place] [address]- 1632 Jun, [facility] [place] [facility] [address] [id number] [place] [address]- 5588 Jun, [facility] [place] [facility] [address] [facility] [id number] [place] [address]- 7375 Jun, [facility] [place] [facility] [address] [facility] [id number] [place] [address]- 9357 Jun, [facility] [place] [facility] [address] [id number] [place] [address]- 3207 Jun, [facility] [place] [facility] [address] [id number] [place] [address]- 1127 Jun, [facility] [place] [facility] [address] [facility] [id number] [place] [address]- 4063 19 May, 2014 [facility] [place] [facility] [address] [facility] [id number] [place] [address]- 1162 19 May, 2014 [facility] [place] [facility] [address] [facility] [id number] [place] [address]- 0202 18 May, 2014 [facility] [place] [facility] [address] [facility] [id number] [place] [address]- 6639 18 May, 2014 [facility] [place] [facility] [address] [facility] [id number] [place] [address]- 9909 16 May, 2014 [facility] [place] [facility] [address] [facility] [id number] [address]- 5207 16 May, 2014 [facility] [place] [facility] [address] [facility] [id number] [place] [address]- 7947 13 May, 2014 [facility] [place] [facility] [address] [facility] [id number] [place] [address]- 2020 13 May, 2014 [facility] [place] [facility] [address] [facility] [id number] [place] [address]- 0318 10 May, 2014 [facility] [place] [facility] [address] [id number] [place] [address]- 1813 May, [facility] [place] [facility] [address] [id number] [place] [address]- 6756 Apr, [facility] [place] [facility] [address] [id number] [place] [address]- 0310 Apr, [facility] [place] [facility] [address] [id number] [place] [address]- 3985 Mar, [facility] [place] [facility] [address] [id number] [place] [address]- 2264 Mar, [facility] [place] [facility] [address] [id number] [place] [address]- 8588 Mar, [facility] [place] [facility] [address] [id number] [place] [address]- 4180 Mar, [facility] [place] [facility] [address] [id number] [place] [address]- 1664 Mar, [facility] [place] [facility] [address] [id number] [place] [address]- 9434 Mar, [facility] [place] [facility] [address] [id number] [place] [address]- 0439 Mar, [facility] [place] [facility] [address] [id number] [place] [address]- 6643 Feb, [facility] [place] [facility] [address] [id number] [place] [address]- 3950 Feb, [facility] [place] [facility] [address] [id number] [place] [address]- 7977 Feb, [facility] [place] [facility] [address] [id number] [place] [address]- 2809 Jan, [facility] [place] [facility] [address] [id number] [place] [address]- 8369 Jan, [facility] [place] [facility] [address] [id number] [place] [address]- 6620 Jan, [facility] [place] [facility] [address] [id number] [place] [address]- 9723 Jan, [facility] [place] [facility] [address] [id number] [place] [address]- 3347 Jan, [facility] [place] [facility] [address] [id number] [place] 4434 Jan, [facility] [place] [facility] [address] [id number] [place] [address]- 1018 Jan, [facility] [place] [facility] [address] [id number] [place] [address]- 1109 Jan, [facility] [place] [facility] [address] [id number] [place] [address]- 7103 Jan, [facility] [place] [facility] [address] [id number] [place] [address]- 4455 Jan, [facility] [place] [facility] [address] [id number] [place] [address]- 7830 Nov, [facility] [place] [facility] [address] [id number] [place] [address]- 0003 Nov, [facility] [place] [facility] [address] [id number] [place] [address]- 5306 Nov, [facility] [place] [facility] [address] [id number] [place] [address]- 1314 Oct, [facility] [place] [facility] [address] [id number] [address]- 1446 Oct, [facility] [place] [facility] [address] [id number] [place] [address]- 6960 Oct, [facility] [place] [facility] [address] [id number] [place] [address]- 7454 Oct, [facility] [place] [facility] [address] [id number] [place] [address]- 2236 Oct, [facility] [place] [facility] [address] [id number] [place] [address]- 7614 Oct, [facility] [place] [facility] [address] [id number] [place] [address]- 6093 Oct, [facility] [place] [facility] [address] [id number] [place] [address]- 5608 Oct, [facility] [place] [facility] [address] [id number] [place] [address]- 2187 Oct, [facility] [place] [facility] [address] [id number] [place] [address]- 0171 Sep, [facility] [place] [facility] [address] [id number] [place] [address]- 6681 Sep, [facility] [place] [facility] [address] [id number] [place] [address]- 5349 Sep, [facility] [place] [facility] [address] [id number] [place] [address]- 4367 Sep, [facility] [place] [facility] [address] [id number] [place] [address]- 2044 Sep, [facility] [place] [facility] [address] [id number] [place] [address]- 1510 Sep, [facility] [place] [facility] [address] [id number] [place] [address]- 2763 Sep, [facility] [place] [facility] [address] [id number] [place] [address]- 9320 Sep, [facility] [place] [facility] [address] [id number] [place] [address]- 1807 Sep, [facility] [place] [facility] [address] [id number] [place] [address]- 8106 August, [facility] [place] [facility] [address] [id number] [place] [address]- 3916 August, [facility] [place] [facility] [address] [id number] [place] 1546 August, [facility] [place] [facility] [address] [id number] [place] [address]- 9648 August, [facility] [place] [facility] [address] [id number] [place] [address]- 2068 August, [facility] [place] [facility] [address] [id number] [place] [address]- 5653 August, [facility] [place] [facility] [address] [id number] [place] [address]- 4088 Jul, [facility] [place] [facility] [address] [id number] [place] [address]- 3100 Jul, [facility] [place] [facility] [address] [id number] [place] [address]- 6242 Jul, [facility] [place] [facility] [address] [id number] [place] [address]- 1304 Jul, [facility] [place] [facility] [address] [id number] [place] [address]- 3092 Jul, [facility] [place] [facility] [address] [id number] [place] [address]- 0795 Jul, [facility] [place] [facility] [address] [id number] [place] [address]- 6156 Jun, [facility] [place] [facility] [address] [id number] [place] [address]- 2412 Jun, [facility] [place] [facility] [address] [id number] [address]- 6321 May, [facility] [place] [facility] [address] [id number] [place] [address]- 0038 May, [facility] [place] [facility] [address] [id number] [place] [address]- 7989 May, [facility] [place] [facility] [address] [id number] [place] [address]- 4816 May, [facility] [place] [facility] [address] [id number] [address]- 8952 Apr, [facility] [address] [id number] [place] [address]- 3160 Apr, [facility] [place] [facility] [address] [facility] [id number] [place] [address]- 7239 Mar, [facility] [address] [facility] [id number] [place] [address]- 5745 Mar, [facility] [place] [facility] [address] [facility] [id number] [place] [address]- 9827 Mar, [facility] [address] [facility] [id number] [place] [address]- 1304 Mar, [facility] [place] [facility] [address] [facility] [id number] [place] [address]- 7411 Mar, [facility] [id number] [address]- 7187 Mar, [facility] [place] [facility] [address] [facility] [id number] [place] [address]- 3553 Feb, [facility] [place] [facility] [address] [id number] [address]- 1753 Feb, [facility] [place] [facility] [address] [id number] [address]- 5218 Feb, [facility] [place] [facility] [address] [facility] [id number] [place] [address]- 7085 Feb, [facility] [place] [facility] [address] [facility] [id number] [place] [address]- 0523 Feb, [facility] [place] [facility] [address] [facility] [id number] [place] [address]- 6465 Feb, [facility] [place] [facility] [address] [facility] [id number] [place] [address]- 8588 Jan, [facility] [place] [facility] [address] [id number] [address]- 4131 Jan, [facility] [place] [facility] [address] [id number] [place] [address]- 4200 10 Jan, 2013 [facility] [place] [facility] [address] [id number] [place] [address]- 0691 Jan, [facility] [place] [facility] [address] [id number] [place] [address] 2542 08 Jan, 2013 [facility] [place] [facility] [address] [id number] [place] [address]- 7299 Jan, [facility] [place] [facility] [address] [id number] [place] [address]- 0764 Dec, [facility] [place] [facility] [address] [id number] [place] [address]- 5718 Dec, [facility] [place] [facility] [address] [id number] [place] [address]- 8862 Nov, [facility] [place] [facility] [address] [id number] [place] [address]- 0230 Nov, [facility] [place] [facility] [address] [id number] [place] [address]- 6675 Oct, [facility] [place] [facility] [address] [id number] [place] [address]- 6325 Oct, [facility] [place] [facility] [address] [id number] [place] [address]- 1045 Oct, [facility] [place] [facility] [address] [id number] [place] [address]- 4524 Oct, [facility] [place] [facility] [address] [id number] [place] [address]- 0498 Oct, [facility] [place] [facility] [address] [id number] [place] [address]- 1179 Oct, [facility] [place] [facility] [address] [id number] [place] [address]- 4652 Sep, [facility] [place] [facility] [address] [id number] [place] [address]- 7886 Sep, [facility] [address] [id number] [place] [address]- 6509 Sep, [facility] [address] [id number] [place] [address]- 0383 Sep, [facility] [address] [id number] [place] [address]- 2809 August, [facility] [address] [id number] [place] [address]- 5058 August, [facility] [address] [id number] [place] [address]- 4845 August, [facility] [address] [id number] [place] [address]- 9862 August, [facility] [address] [id number] [place] [address]- 6447 August, [facility] [address] [id number] [place] [address]- 1358 Jul, [facility] [address] [id number] [place] [address]- 3342 Jul, [facility] [address] [id number] [place] [address]- 3294 Jul, [facility] [address] [id number] [place] [address]- 7625 Jul, [facility] [place] [facility] [address] [id number] [address]- 5638 Jul, [facility] [place] [facility] [address] [id number] [place] [address]- 3874 Jul, [facility] [place] [facility] [address] [id number] [place] [address]- 0693 Jul, [facility] [place] [facility] [address] [id number] [place] [address]- 1356 Jul, [facility] [place] [facility] [address] [id number] [place] [address]- 7566 Jul, [facility] [address] [facility] [id number] [place] [address]- 6606 Jul, [facility] [address] [facility] [id number] [id number] Jun, [facility] [address] [id number] [address]- 9660 Jun, [facility] [address] [facility] [id number] [place] [address]- 5160 Jun, [facility] [address] [id number] [place] [address]- 9756 Jun, [facility] [address] [id number] [place] [address]- 9808 Jun, [facility] [address] [id number] [place] [address]- 1136 May, [facility] [address] [id number] [place] [address] May, [facility] [address] [id number] [address] May, [facility] [address] [id number] [address] Apr, [facility] [address] [id number] [address] Apr, [facility] [address] [id number] [address] Apr, [facility] [address] [facility] [id number] [address] Apr, [facility] [address] [facility] [id number] [address] Apr, [facility] [address] [id number] [address] Apr, [facility] [place] [facility] [address] [id number] [place] [address] Mar, [facility] [place] [facility] [address] [id number] [place] [address] Mar, [facility] [place] [facility] [address] [id number] [place] [address] Mar, [facility] [place] [facility] [address] [id number] [place] [address] Mar, [facility] [place] [facility] [address] [id number] [place] [address] Feb, [facility] [place] [facility] [address] [id number] [place] [address] Feb, [facility] [place] [facility] [address] [id number] [place] [address] Feb, [facility] [place] [facility] [address] [id number] [place] [address] Feb, [facility] [place] [facility] [address] [id number] [place] [address] 47[address] Feb, [facility] [place] [facility] [address] [id number] [place] [address] Feb, [facility] [place] [facility] [address] [id number] [place] [address]- [address] Feb, [facility] [place] [facility] [address] [id number] [place] [address] Feb, [facility] [place] [facility] [address] [id number] [place] [address] 34[address] Feb, [facility] [place] [facility] [address] [id number] [place] [address] Feb, [facility] [place] [facility] [address] [id number] [place] [address] Feb, [facility] [place] [facility] [address] [id number] [place] [address] Feb, [facility] [place] [facility] [address] [id number] [place] [address] 65[address] Feb, [facility] [place] [facility] [address] [id number] [place] [address] Feb, [facility] [place] [facility] [address] [facility] [id number] [place] [address] Feb, [facility] [place] [facility] [address] [id number] [place] [address] Feb, [facility] [place] [facility] [address] [id number] [place] [address] 97[address] Jan, [facility] [place] [facility] [address] [id number] [place] [address] Jan, [facility] [place] [facility] [address] [id number] [place] [address] Jan, [facility] [place] [facility] [address] [id number] [place] [address] Jan, [facility] [place] [facility] [address] [id number] [place] [address] 30 Jan, 2012 [facility] [place] [facility] [address] [facility] [id number] [place] [address] Jan, [facility] [place] [facility] [address] [id number] [place] [address] 25 Jan, 2012 [facility] [place] [facility] [address] [id number] [place] [address] 16 Jan, 2012 [facility] [place] [facility] [address] [id number] [place] [address] 16 Jan, 2012 [facility] [place] [facility] [address] [facility] [id number] [place] [address] 15 Jan, 2012 [facility] [place] [facility] [address] [facility] [id number] [place] [address] 15 Jan, 2012 [facility] [place] [facility] [address] [id number] [place] [address]- [address]31 01 Jan, 2012 [facility] [address] [id number] [place] [address]46 26 Sep, 2011 [facility] [place] [facility] [address] [id number] [place] [address] 2546 26 Sep, 2011 [facility] [address] [id number] [place] [address] 2546 24 Sep, 2011 [facility] [place] [facility] [address] [id number] [place] [address] 2546 23 Sep, 2011 [facility] [place] [facility] [address] [id number] [place] [address]- 7946 22 Sep, 2011 [facility] [place] [facility] [address] [id number] [place] [address] 21 Dec, 2011 [facility] [address] [id number] [place] [address] 2546 20 Dec, 2011 [facility] [address] [id number] [place] [address]41 20 Sep, 2011 [facility] [place] [facility] [address] [id number] [place] [address] 2545 07 Sep, 2011 [facility] [address] [id number] [place] [address] 2544 06 Sep, 2011 [facility] [facility] [address] [id number] [place] [address]46 06 Sep, 2011 [facility] [place] [facility] [address] [id number] [place] [address] 2544 05 Sep, 2011 [facility] [place] [facility] [address] [id number] [place] [address] 2547 23 Nov, 2011 [facility] [place] [facility] [address] [id number] [place] [address] 17 Nov, 2011 [facility] [place] [facility] [address] [id number] [place] [address] Nov, [facility] [place] [facility] [address] [id number] [place] [address] Nov, [facility] [place] [facility] [address] [id number] [place] [address] Nov, [facility] [place] [address] [id number] [place] [address] Nov, [facility] [place] [address] [id number] [place] [address] Nov, [facility] [place] [address] [id number] [place] [address]296 Nov, [facility] [place] [facility] [address] [id number] [place] [address] Oct, [facility] [place] [facility] [address] [id number] [place] [address]68 Oct, [facility] [place] [facility] [address] [id number] [place] [address] Oct, [facility] [place] [address] [id number] [place] [address]16 Oct, [facility] [place] [address] [id number] [place] [address]67 Oct, [facility] [address] [id number] [place] [address] 5517 Oct, [facility] [address] [id number] [place] [address]60 Oct, [facility] [address] [id number] [place] [address] Sep, [facility] [address] [id number] [place] [address] Sep, [facility] [address] [id number] [place] [address] August, [facility] [address] [id number] [place] [address] August, [facility] [address] [id number] [place] [address] August, [facility] [address] [id number] [place] [address] 3581 August, [facility] [address] [id number] [place] [address] Jul, [facility] [address] [id number] [place] [address]078 Jul, [facility] [address] [id number] [place] [address] Jul, [facility] [address] [id number] [place] [address] Jul, [facility] [address] [id number] [place] [address]646 Jul, [facility] [address] [id number] [place] [address] 34[address] Jul, [facility] [address] [id number] [place] [address]165 Jul, [facility] [address] [id number] [place] [address] 360[address] Jul, [facility] [address] [id number] [place] [address] 1869 Jul, [facility] [address] [id number] [place] [address]556 23 Jun, 2011 [facility] [address] [id number] [place] [address] 6499 19 Jun, 2011 [facility] [address] [id number] [place] [address] 15 Jun, 2011 [facility] [address] [id number] [place] [address] 5869 14 Jun, 2011 [facility] [address] [id number] [place] [address]26 Jun, [facility] [address] [id number] [place] [address]6 Jun, [facility] [address] [id number] [place] [address] 6716 Jun, [facility] [address] [id number] [place] [address]146 May, [facility] [address] [id number] [place] [address] May, [facility] [address] [id number] [place] [address] May, [facility] [address] [id number] [place] [address] May, [facility] [address] [id number] [place] [address] May, [facility] [address] [id number] [place] [address] 3928 Apr, [facility] [address] [id number] [place] [address] Apr, [facility] [address] [id number] [place] [address]60 Apr, [facility] [address] [id number] [place] [address]- 1716 Apr, [facility] [address] [id number] [place] [address] Apr, [facility] [address] [id number] [place] [address] Mar, [facility] [address] [id number] [place] [address] Mar, [facility] [address] [id number] [place] [address] 1156 Mar, [facility] [address] [id number] [place] [address] Mar, [facility] [address] [id number] [place] [address] 4832 Mar, [facility] [address] [id number] [place] [address]- 0063 Mar, [facility] [address] [id number] [place] [address] 1710 Mar, [facility] [address] [id number] [place] [address] 7817 Feb, [facility] [address] [id number] [place] [address]642 Feb, [facility] [address] [id number] [place] [address] 5963 Feb, [facility] [address] [id number] [place] [address] 1341 Feb, [facility] [address] [id number] [place] [address] 1815 Jan, [facility] [address] [id number] [place] [address] 4130 Jan, [facility] [address] [id number] [address] Jan, [facility] [address] [id number] [place] [address]- 2918 Jan, [facility] [address] [id number] [place] [address] 9248 Nov, [facility] [address] [id number] [place] [address]- 3773 Mar, [facility] [address] [id number] [place] [address]- 2685 Mar, [facility] [address] [id number] [address]46 Mar, [facility] [address] [id number] [address] Mar, [facility] [id number] [address] Mar, [facility] [address] [id number] [address] Mar, [facility] [id number] [address] Feb, [facility] [id number] [place] [address]- [address] Feb, [facility] [id number] [address] Jan, [facility] [id number] [address] 12[address] Jan, [facility] [address] [id number] [address] Jan, IMMUNIZATIONS No Known Immunizations SOCIAL HISTORY Never Assessed REASON FOR VISIT f/u PLAN OF CARE Activity Details Follow Up Appointments every other week, For 1 hour. 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
--- OUTSIDE RECORDS SUMMARY | 2018-05-29 08:40 | XMS REPORT ---
Author Author ISABEL MAE [facility] Address [address] [place] [address] Care Team Providers Care Electrical Assembler Name Role Phone ISABEL MAE Unavailable PROBLEMS Type Condition ICD9-CM Code PPC68-RS Code Onset Dates Condition Status SNOMED Code Problem Long-term use of high-risk medication Z79.899 Active 981796578 Problem Abnormal chest CT R93.8 Active 445725002 Problem Low back pain M54.5 Active 206867559 Problem Generalized anxiety disorder F41.1 Active 31106157 Problem Dysthymic disorder F34.1 Active 98247822 Problem Coronary artery disease involving [place] coronary artery of [place] heart, angina presence unspecified I25.10 Active 4369676190938 Problem Depressed F32.9 Active 07484538 Problem Fibromyalgia M79.7 Active 144869969 Problem Hypothyroid E03.9 Active 56682640 Problem Essential (primary) hypertension I10 Active 84242477 Problem Insomnia G47.00 Active 430579008 Problem Vitamin D deficiency E55.9 Active 86854898 Problem Anemia in chronic kidney disease D63.1 Active 295258045721492 Problem Chronic kidney disease, unspecified N18.9 Active 347924601 Problem Body mass index (BMI) of 40.0-44.9 in adult Z68.41 Active 116507002 Problem Stage 3 chronic kidney disease N18.3 Active 420204397 Problem Restless leg G25.81 Active 57062682 Problem Palpitations R00.2 Active 76926170 Problem Asthma J45.909 Active 509751699 Problem Primary osteoarthritis of left knee M17.12 Active 683022194 Problem Bipolar disorder, current episode manic without psychotic features F31.10 Active 242592311 Problem Mood disorder F39 Active 97795949 Problem Degenerative tear of medial meniscus of left knee M23.204 Active 208577919 Problem History of colon polyps Z86.010 Active 014522798 Problem Asthma with acute exacerbation in adult J45.901 Active 658121067 Problem Chronic kidney disease, stage 4 (severe) N18.4 Active 954262707 Problem Functional diarrhea K59.1 Active 47420702 Problem Hypokalemia E87.6 Active 00308595 Problem Mixed stress and urge urinary incontinence N39.46 Active 770122342 Problem History of anemia Z86.2 Active 366673921 Problem Other seasonal allergic rhinitis J30.2 Active 922914180 ALLERGIES No Information ENCOUNTERS Encounter Location Date Diagnosis [place] [address] [address] August, [place] [address] 38714- 2032 Jul, [place] [address] 23966- 4654 Jul, Chronic kidney disease, stage 4 (severe) N18.4 [place] [address] 78629- 7829 Jul, [place] [address] 52777- 2648 Jul, Restless leg G25.81 ; Mixed stress and urge urinary incontinence N39.46 and Fibromyalgia M79.7 [place] [address] 72913- 8910 Jul, Chronic kidney disease, stage 4 (severe) N18.4 [place] [address] 8[address]39- 4276 Jun, Orthostatic hypotension I95.1 ; Chronic kidney disease, stage 4 (severe) N18.4 ; Chest wall discomfort R07.89 and Body mass index (BMI) of 40.0-44.9 in adult Z68.41 [place] [address] 6[address]- [address] Jun, [place] [address] 44219- 1314 Jun, Orthostatic hypotension I95.1 [facility] [address] [place] [id number] [place] [address] 26587- 7170 Jun, [facility] [address] [place] [id number] [place] [address] 93655 -1458 Jun, Orthostatic hypotension I95.1 ; Dysuria R30.0 and Acute cystitis without hematuria N30.00 [facility] [address] [place] [id number] [place] [address] 48719- 9708 Jun, [facility] [address] [place] [id number] [place] [address] 09735- 0687 Jun, Chronic kidney disease, stage 4 (severe) N18.4 [facility] [address] [place] [id number] [place] [address] 71092- 3746 Jun, Fibromyalgia M79.7 [facility] [address] [place] [id number] [place] [address] 28380- 5970 Jun, [facility] [address] [place] [id number] [place] [address] 12008- 9465 Jun, [facility] [address] 7[address]24- [address] May, [address] R93.8 and Stage 3 chronic kidney disease N18.3 [facility] [address] [place] [id number] [place] [address] 73673- 6994 May, Chronic kidney disease, stage 4 (severe) N18.4 [facility] [address] [place] [id number] [place] [address] 06846- 6088 May, Chronic kidney disease, stage 4 (severe) N18.4 [facility] [address] [place] [id number] [place] [address] 79075- [address]354 May, Ab[address] chest [address] R93.8 [facility] [address] [place] [id number] [place] [address] 64552- 4900 May, [facility] [address] [place] [id number] [place] [address] 31636- 6919 May, [facility] [address] [address] 3093 May, Generalized anxiety disorder F41.1 and Major depressive disorder, recurrent episode with anxious distress F33.9 [facility] [address] [address]- 8739 May, Mood disorder F39 [facility] [id number] [place] [address] 60495- 1829 Apr, [facility] [address] [address]- 3159 Apr, Infected skin lesion L08.9 and Muscle strain of right shoulder region, initial encounter S46.911A [place] [address] [address]- 8931 Apr, Generalized anxiety disorder F41.1 and Major depressive disorder, recurrent episode with anxious distress F33.9 [facility] [address] [address]- 3760 Apr, [facility] [id number] [place] [address] 75792- 9382 Apr, Recent urinary tract infection Z87.440 and Hypothyroid E03.9 [place] [address] [address] 4414 Apr, Generalized anxiety disorder F41.1 and Major depressive disorder, recurrent episode with anxious distress F33.9 [facility] [address] [place] [id number] [address]- 1455 Apr, Recent urinary tract infection Z87.440 [facility] [address] [address]- 2397 Mar, [facility] [address] [place] [id number] [address] Mar, Dysuria R30.0 ; Acute cystitis without hematuria N30.00 and BMI 40.0-44.9, adult Z68.41 [place] [id number] [place] [address] 21272- 8695 14 Mar, 2017 [place] [address] [place] [id number] [place] [address] 65479- 1558 Mar, [place] [address] [place] [id number] [place] [address] 66213- 9472 Mar, Generalized anxiety disorder F41.1 and Major depressive disorder, recurrent episode with anxious distress F33.9 [place] [address] [place] [id number] [place] [address] 95995- 9702 Feb, Conjunctivitis, bacterial H10.9 [place] [address] [place] [id number] [place] [address] 99858- 1331 Feb, [facility] [address] [place] [id number] [place] [address] 22362 -1254 Feb, Conjunctivitis, bacterial H10.9 [place] [address] [place] [id number] [place] [address] 80575- 5801 Feb, [facility] [address] [place] [id number] [place] [address] 77223 -9716 Feb, Dysuria R30.0 ; Acute cystitis N30.00 and BMI 40.0-44.9, adult Z68.41 [place] [address] [place] [id number] [place] [address] 43458- 5923 Feb, [place] [address] [place] [id number] [place] [address] 64387- 8431 Feb, Generalized anxiety disorder F41.1 and Major depressive disorder, recurrent episode with anxious distress F33.9 [place] [address] [place] [id number] [place] [address] 18173- 4393 Feb, Mood disorder F39 and BMI 40.0-44.9, adult Z68.41 [place] [address] [place] [id number] [place] [address] 06429- 1976 Jan, [facility] [address] [place] [id number] [place] [address] 65640- 1205 Jan, [facility] [address] [place] [id number] [place] [address] 01399- 8480 Jan, Hypothyroid E03.9 [facility] [address] [place] [id number] [place] [address] 35400- 1792 Jan, [place] [address] [place] [id number] [place] [address] 88159- 9191 Jan, Chronic kidney disease, unspecified N18.9 ; Hypokalemia E87.6 ; Essential (primary) hypertension I10 ; Fibromyalgia M79.7 ; Coronary artery disease involving [place] coronary artery of [place] heart, angina presence unspecified I25.10 ; Hypothyroid E03.9 and Encounter for immunization Z23 [place] [address] [address]- 5411 Jan, Hypothyroid E03.9 [place] [address] [place] [id number] [place] [address] 58424- 5477 Jan, [place] [address] [place] [id number] [place] [address] 31917- 9296 Dec, Vitamin D deficiency E55.9 [place] [address] [place] [id number] [place] [address] 92705- 9613 Dec, Primary osteoarthritis of left knee M17.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 [place] [address] [place] [id number] [place] [address] 52015- 4013 19 Dec, 2016 Fibromyalgia M79.7 [facility] [address] [place] [id number] [place] [address] 73768- 0291 18 Dec, 2016 Mood disorder F39 [facility] [address] [place] [id number] [place] [address] 73940- 0823 13 Dec, 2016 [place] [address] [place] [id number] [place] [address] 11228- 4043 13 Dec, 2016 Generalized anxiety disorder F41.1 and Major depressive disorder, recurrent episode with anxious distress F33.9 [facility] [address] [address]- 6551 11 Dec, 2016 [facility] [address] [address]- 6771 08 Dec, 2016 Streptococcal meningitis G00.2 [facility] [id number] [place] [address] 42845- 9567 07 Dec, 2016 Streptococcal meningitis G00.2 [facility] [address] [address]- 1709 07 Dec, 2016 [facility] [id number] [place] [address] 40967- 0175 06 Dec, 2016 Streptococcal meningitis G00.2 [facility] [id number] [place] [address] 06655- 7858 06 Dec, 2016 [facility] [id number] [place] [address] 76503- 6281 06 Dec, 2016 Major depressive disorder, recurrent episode with anxious distress F33.9 [facility] [id number] [place] [address] 45251- 2061 Nov, Fever, unspecified fever cause R50.9 [facility] [address] [address]- 4540 Nov, [facility] [id number] [place] [address] 25376- 5305 Nov, Hypothyroid E03.9 [facility] [id number] [place] [address] 85835- 5499 Nov, Generalized anxiety disorder F41.1 and Major depressive disorder, recurrent episode with anxious distress F33.9 [facility] [address] [address]- 2002 Nov, [facility] [id number] [place] [address] [id number] Oct, Dental examination Z01.20 [facility] [address] [address]- 3161 Oct, Generalized anxiety disorder F41.1 and Major depressive disorder, recurrent episode with anxious distress F33.9 [place] [address] [address]- 5898 Oct, Chronic kidney disease, stage 4 (severe) N18.4 [facility] [address] [place] [id number] [place] [address] 68974- 7317 Oct, [place] [address] [place] [id number] [place] [address] 94591- 2133 Oct, Fibromyalgia M79.7 [place] [address] [place] [id number] [place] [address] 59895- 7900 Oct, [place] [address] [place] [id number] [place] [address] 61534- 5771 Oct, Generalized anxiety disorder F41.1 ; Major depressive disorder, recurrent episode with anxious distress F33.9 and Bipolar disorder, current episode manic without psychotic features F31.10 [place] [id number] [place] [address] 52583- 4982 Sep, [place] [address] [address]- 3135 Sep, [place] [address] [address]- 4474 Sep, Vitamin D deficiency E55.9 [facility] [address] [address]- 3425 Sep, Vitamin D deficiency E55.9 [place] [address] [address]- 2791 Sep, [facility] [address] [address]- 1571 Sep, Chronic kidney disease, stage 4 (severe) N18.4 ; Hypothyroid E03.9 ; Restless leg G25.81 ; Fibromyalgia M79.7 ; Essential ( primary) hypertension I10 ; Vitamin D deficiency E55.9 ; Dyspepsia R10.13 ; Anemia in chronic kidney disease D63.1 ; Chronic kidney disease, unspecified N18.9 ; Coronary artery disease involving [place] coronary artery of [place] heart , angina presence unspecified I25.10 ; Screening breast examination Z12.39 and Low back pain M54.5 [place] [address] [place] [id number] [place] [address] 66736- 3777 August, Generalized anxiety disorder F41.1 and Major depressive disorder, recurrent episode with anxious distress F33.9 [place] [address] 47711- 5380 August, Generalized anxiety disorder F41.1 and Major depressive disorder, recurrent episode with anxious distress F33.9 [place] [address] [place] [id number] [place] [address] 89248- 6480 August, Fibromyalgia M79.7 [place] [address] [place] [id number] [place] [address] 66951- 5013 Jul, Generalized anxiety disorder F41.1 and Major depressive disorder, recurrent episode with anxious distress F33.9 [place] [address] [place] [id number] [place] [address] 92819- 7239 Jul, Fibromyalgia M79.7 [place] [address] [place] [id number] [place] [address] 33154- 2265 Jul, Generalized anxiety disorder F41.1 [place] [address] [place] [id number] [place] [address] 86151- 6762 May, [place] [address] [place] [id number] [place] [address] 31181- 0267 May, Hypothyroid E03.9 [place] [address] [place] [id number] [place] [address] 91260- 3468 May, Chronic kidney disease, stage 4 (severe) N18.4 ; Hypothyroid E03.9 ; Restless leg G25.81 ; Fibromyalgia M79.7 ; Essential ( primary) hypertension I10 ; Vitamin D deficiency E55.9 ; Dyspepsia R10.13 ; Acute non-recurrent maxillary sinusitis J01.00 ; Anemia in chronic kidney disease D63.1 ; Chronic kidney disease, unspecified N18.9 and Coronary artery disease involving [place] coronary artery of [place] heart, angina presence unspecified I25.10 [place] [address] [place] [id number] [place] [address] 96479- 6774 May, Vitamin D deficiency, unspecified E55.9 [place] [address] [place] [id number] [place] [address] 03560- 8967 May, Generalized anxiety disorder F41.1 and Major depressive disorder, recurrent episode with anxious distress F33.9 [place] [address] [place] [id number] [place] [address] 96382- 2186 Apr, Pain in right knee M25.561 and Pain in left knee M25.562 [place] [address] [place] [id number] [place] [address] 56881- 0495 Apr, [place] [address] [place] [id number] [place] [address] 10500- 7997 Apr, [place] [address] [place] [id number] [place] [address] 38441- 9497 Apr, [place] [address] [place] [id number] [place] [address] 88919- 6507 Mar, Generalized anxiety disorder F41.1 and Major depressive disorder, recurrent episode with anxious distress F33.9 [place] [address] [place] [id number] [place] [address] 40706- 6397 Mar, Generalized anxiety disorder F41.1 and Major depressive disorder, recurrent episode with anxious distress F33.9 [place] [address] [place] [id number] [place] [address] 94842- 2166 Mar, [place] [address] [place] [id number] [place] [address] 57516- 3534 Mar, [facility] [address] [place] [id number] [place] [address] 54353- 6028 Mar, [facility] [address] [place] [id number] [place] [address] 50484- 3650 Mar, Asthma J45.909 and Fibromyalgia M79.7 [place] [address] 47482- 3762 Mar, Chronic kidney disease, stage 4 (severe) N18.4 ; Vitamin D deficiency E55.9 and Essential (primary) hypertension I10 [place] [address] 80378- 8481 Feb, [place] [address] [place] [id number] [place] [address] 18099- 5386 Feb, Dysuria R30.0 ; Mixed stress and urge urinary incontinence N39.46 ; Fibromyalgia M79.7 and Chronic kidney disease, stage IV (severe) N18.4 [place] [address] [place] [id number] [place] [address] 26214- 2523 Feb, Chronic kidney disease, stage 4 (severe) N18.4 [place] [address] [place] [id number] [place] [address] 31834- 0138 Feb, Chronic kidney disease, stage 4 (severe) N18.4 [place] [address] [place] [id number] [place] [address] 55182- 1012 Feb, [place] [address] [place] [id number] [place] [address] 46849- 3595 Feb, Vitamin D deficiency, unspecified E55.9 [place] [address] [place] [id number] [place] [address] 91074- 8056 Jan, [place] [address] [place] [id number] [place] [address] 27763- 4777 Jan, [place] [address] [place] [id number] [place] [address] 83057- 3923 Dec, [facility] [id number] [place] [address] 93481- 2125 Dec, Chronic kidney disease, stage 4 (severe) N18.4 [facility] [address] [place] [id number] [place] [address] 25740- 5397 Dec, Dysthymic disorder F34.1 and Generalized anxiety disorder F41.1 [facility] [address] [place] [id number] [place] [address] 37937- 6842 Dec, [facility] [address] [place] [id number] [place] [address] 58455- 2876 Dec, [facility] [address] [place] [id number] [place] [address] 17902- 3843 Dec, Dysthymic disorder F34.1 and Generalized anxiety disorder F41.1 [place] [address] [place] [id number] [place] [address] 46159- 7747 Dec, Dysuria R30.0 ; Chronic kidney disease, stage 4 (severe) N18.4 ; Hypertension I10 ; Dyspepsia R10.13 ; Yeast dermatitis B37.2 ; Palpitations R00.2 ; Hypothyroid E03.9 ; Functional diarrhea K59.1 and Other seasonal allergic rhinitis J30.2 [facility] [address] [place] [id number] [place] [address] 45025 -4283 Dec, [facility] [address] [place] [place] [id number] [place] [address] 53791 -1679 Nov, Dysuria R30.0 and Stress incontinence N39.3 [facility] [address] [place] [place] [id number] [place] [address] 22293- 3677 Nov, [facility] [address] [place] [id number] [place] [address] 97915- 4327 Nov, [facility] [address] [place] [id number] [place] [address] 77144- 6374 Nov, Osteoarthritis of knees, bilateral M17.0 [place] [address] [place] [id number] [place] [address] 72856- 3291 Nov, Dysthymic disorder F34.1 and Generalized anxiety disorder F41.1 [place] [address] [place] [id number] [place] [address] 83545- 8448 Nov, [place] [address] [place] [id number] [place] [address] 93927- 9933 Nov, [place] [address] [place] [id number] [place] [address] 24379- 4119 Nov, Urgency of urination R39.15 [place] [address] [id number] [place] [address] 08533- 1741 Nov, [place] [address] [place] [id number] [place] [address] 34271- 7054 Nov, Chronic kidney disease, stage 4 (severe) N18.4 [place] [address] [place] [id number] [place] [address] 81973- 5126 Oct, Hypertension I10 ; Coronary artery disease involving [place] coronary artery of [place] heart, angina presence unspecified I25.10 ; Palpitations R00.2 ; Hypothyroid E03.9 ; Right foot pain M79.671 ; Functional diarrhea K59.1 and Other seasonal allergic rhinitis J30.2 [place] [id number] [place] [address] 75619- 9849 Oct, Dysthymic disorder F34.1 and Generalized anxiety disorder F41.1 [place] [id number] [place] [address] 85574- 2686 Sep, [place] [address] [id number] [place] [address] 87852- 7353 Sep, [place] [address] [id number] [place] [address] 74346- 6339 Sep, [place] [address] [id number] [place] [address] 47312- 6347 Sep, [place] [id number] [place] [address] 03012- 8831 29 Sep, 2015 [place] [address] 92789- 8791 27 Sep, 2015 Dysthymic disorder F34.1 and Generalized anxiety disorder F41.1 [place] [address] [id number] [place] [address] 18185- 3909 16 Sep, 2015 Asthma with acute exacerbation in adult J45.901 ; Dysuria R30.0 ; Chronic kidney disease, stage 4 (severe) N18.4 and History of anemia Z86.[address] 33848- 7915 2015 Generalized anxiety disorder F41.1 and Dysthymic disorder F34.[address] 34460- 7746 August, Screening breast examination Z12.39 and Acute recurrent maxillary sinusitis J01.01 [place] [id number] [place] [address] 34659- 7449 August, Osteoarthritis of knees, bilateral M17.[address] 42767- 5226 August, Chronic kidney disease, stage 4 (severe) N18.4 ; Acute non- recurrent maxillary sinusitis J01.00 ; Urinary problem R39.89 ; Bowel habit changes R19.4 ; Functional diarrhea K59.1 and History of colon polyps Z86.010 [facility] [address] [place] [id number] [place] [address]- [address] Jul, Dysthymic disorder F34.1 and Generalized anxiety disorder F41.1 [place] [id number] [place] [address] 97365- [address]186 Jul, [place] [id number] [place] [address]- [address] Jul, Dysthymic disorder F34.1 ; Generalized anxiety disorder F41.1 and detention use of drug Z79.899 [facility] [id number] [address] Jul, [facility] [id number] [place] [address] 33[address]- [address] Jun, [facility] [id number] [place] [address] 45[address]- [address] Jun, [facility] [id number] [place] [address] 51382- 8365 May, [facility] [id number] [place] [address] 90266- 3785 May, Dysthymic disorder F34.1 and Generalized anxiety disorder F41.1 [facility] [address] [place] [id number] [place] [address]- 4200 Apr, Kidney disease N28.9 [facility] [address] [place] [place] [id number] [place] [address] 9[address]26- 9564 Apr, Generalized anxiety disorder F41.1 and Dysthymic disorder F34.1 [facility] [place] [address] [place] [id number] [place] [address] 435[address]- 29[address] Apr, Chronic kidney disease, stage 4 (severe) N18.4 [facility] [address] [place] [id number] [place] [address] 69[address]- 4369 Apr, Generalized anxiety disorder F41.1 ; Major depression, recurrent F33.9 and Sleep disturbance G47.9 [place] [id number] [place] [address] 95827- 5877 Mar, Generalized anxiety disorder F41.1 and Dysthymic disorder F34.1 [place] [address] [place] [id number] [place] [address] 52302- 1594 Mar, Generalized anxiety disorder F41.1 ; Dysthymic disorder F34.1 and Insomnia G47.00 [place] [address] [place] [id number] [place] [address] 91277- 2686 Mar, [facility] [id number] [place] [address] 69451- 6012 Mar, [facility] [address] 27830- 8779 Mar, Osteoarthritis of knees, bilateral M17.[address] 52644- 4717 Mar, Hypertension I10 ; Hypothyroid E03.9 ; Dysthymic disorder F34.1 ; Chronic kidney disease, stage 4 (severe) N18.4 and Nausea & vomiting R11.2 [place] [address] 37208- 0923 Mar, Generalized anxiety disorder F41.1 ; Dysthymic disorder F34.1 and Insomnia G47.[address] 74427- 2278 Mar, Dehydration E86.0 ; Chronic kidney disease, stage 4 (severe ) N18.4 and Nausea & vomiting R11.2 [facility] [id number] [place] [address] 41549 -5148 Mar, Gastroenteritis K52.9 [facility] [id number] [place] [address] 32200- 1457 Mar, [facility] [id number] [place] [address] 12299- 4839 Mar, [facility] [id number] [place] [address] 22669- 8685 Feb, Dysthymic disorder F34.1 and Generalized anxiety disorder F41.[address] 26988- 9457 Jan, UTI (urinary tract infection) N39.0 ; Asthma J45.909 ; Coronary artery disease involving noorvik coronary artery of noorvik heart, angina presence unspecified I25.10 ; Hypertension I10 ; Hypothyroid E03.9 ; Vitamin D deficiency E55.9 ; Insomnia G47.00 ; Palpitations R00.2 ; Depressed F32.9 ; Restless leg G25.81 and Anxiety F41.9 [place] [address] [id number] [place] [address] 51645- 9274 Jan, Dysthymic disorder F34.1 and Generalized anxiety disorder F41.[address] 24364- 3380 Jan, [place] [address] 34048- 4802 Dec, [place] [address] 16199- 4084 Dec, Alkalosis 276.3 ; Chronic kidney disease, 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.4 ; Hyperpotassemia 276.7 ; Secondary hyperparathyroidism, renal 588.81 ; Proteinuria 791.0 ; Unspecified vitamin D deficiency 268.9 ; Anemia in chronic kidney disease 285.21 ; Other and unspecified hyperlipidemia 272.4 ; Hypertension, essential, benign 401.1 and Chronic kidney disease (CKD), stage III (moderate) 585.3 [place] [address] 00628- 4401 Dec, [place] [address] 99349- 0183 Dec, Depressive disorder, not elsewhere classified 311 and Generalized anxiety disorder 300.02 [place] [address] [place] [id number] [place] [address] 58314- 5620 Dec, [place] [address] 38530- 0192 Dec, [address] 99688- 1710 Nov, Depressive disorder, not elsewhere classified 311 and Generalized anxiety disorder 300.[address] 00782- 8087 Nov, Arthritis of both knees 716.96 [place] [id number] [place] [address] 54148- 5557 Nov, PAF (paroxysmal atrial fibrillation) 427.31 ; CAD (coronary artery disease) 414.00 ; Chest pain 786.50 and Chronic kidney disease (CKD) stage G4/A1, severely decreased glomerular filtration rate (GFR) between 15-29 mL/min/1.73 square meter and albuminuria creatinine ratio less than 30 mg/g 585.4 [place] [address] 35003- 5357 Oct, Coronary atherosclerosis of unspecified type of vessel, noorvik or graft 414.00 ; Chronic kidney disease, 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.4 ; Hypertension 401.9 and Edema 782.3 [place] [id number] [place] [address] 56439- 0003 Oct, Depressive disorder, not elsewhere classified 311 and Generalized anxiety disorder 300.02 [place] [id number] [place] [address] 25176- 1860 Oct, Depressive disorder, not elsewhere classified 311 and Generalized anxiety disorder 300.02 [place] [id number] [place] [address] 17559- 7194 Oct, [place] [id number] [place] [address] 99955- 0260 Oct, [place] [id number] [place] [address] 71239- 2670 Sep, [place] [id number] [place] [address] 56624- 6174 Sep, Chronic kidney disease, 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.4 [place] [address] [id number] [place] [address] 64211- 5898 Sep, [place] [id number] [place] [address] 12607- 7154 Sep, Coronary atherosclerosis of unspecified type of vessel, noorvik or graft 414.00 ; Hypertension 401.9 ; Edema 782.3 and Hypothyroidism 244.9 [facility] [id number] [place] [address] 49899- 2300 Sep, Coronary atherosclerosis of unspecified type of vessel, noorvik or graft 414.00 ; Hypertension 401.9 ; Fibromyalgia 729.1 ; Edema 782.3 ; Hypothyroidism 244.9 and Anemia 285.9 [facility] [address] 74907- 2935 Sep, Anxiety disorder, unspecified 300.00 and Depressive disorder , not elsewhere classified 311 [facility] [address] 52600- 0023 Sep, [facility] [address] 51490- 1708 August, Generalized anxiety disorder 300.02 [facility] [address] 12757- 0489 August, Closed fracture of lateral malleolus 824.2 [facility] [address] [address] [id number] [place] [address] 00161- 5812 Jul, [facility] [address] 29814- 4791 Jul, [facility] [id number] [place] [address] 39959- 4419 Jun, [facility] [id number] [place] [address] 23428- 6942 Jun, [facility] [id number] [place] [address] 68087- 0464 Jun, [facility] [address] 84897- 4875 Jun, [facility] [id number] [place] [address] 25907- 0837 Jun, [facility] [id number] [place] [address] 88559- 0039 Jun, [facility] [place] [facility] [address] [id number] [place] [address]- 2241 May, 2014 [facility] [place] [facility] [address] [id number] [place] [address]- 7896 May, 2014 [facility] [place] [facility] [address] [id number] [place] [address]- 6326 18 May, 2014 [facility] [place] [facility] [address] [id number] [place] [address]- 4686 18 May, 2014 [facility] [place] [facility] [address] [id number] [place] 9996 16 May, 2014 [facility] [place] [facility] [address] [id number] [place] 2696 16 May, 2014 [facility] [place] [facility] [address] [id number] [place] [address]- 1336 13 May, 2014 [facility] [place] [facility] [address] [id number] [place] [address]- 2176 13 May, 2014 [facility] [place] [facility] [address] [id number] [place] [address]- 7567 10 May, 2014 [facility] [place] [facility] [address] [id number] [place] [address]- 3546 10 May, 2014 [facility] [place] [facility] [address] [id number] [place] [address]- 6464 Apr, [facility] [place] [facility] [address] [id number] [place] [address]- 6862 Apr, [facility] [place] [facility] [address] [id number] [place] [address]- 4827 Mar, [facility] [place] [facility] [address] [id number] [place] 0138 Mar, [facility] [place] [facility] [address] [id number] [place] 4820 Mar, [facility] [place] [facility] [address] [id number] [place] [address]- 2023 15 Mar, 2014 [facility] [place] [facility] [address] [id number] [place] [address]- 6883 15 Mar, 2014 [facility] [place] [facility] [address] [id number] [place] [address]- 4496 15 Mar, 2014 [facility] [place] [facility] [address] [id number] [place] [address]- 3349 Mar, [facility] [place] [facility] [address] [id number] [place] [address]- 9207 Feb, [facility] [place] [facility] [address] [id number] [place] [address]- 0432 Feb, [facility] [place] [facility] [address] [id number] [place] [address]- 0291 Feb, [facility] [place] [facility] [address] [id number] [place] [address]- 8265 Jan, [facility] [place] [facility] [address] [id number] [place] [address]- 8709 Jan, [facility] [place] [facility] [address] [id number] [place] [address]- 8437 Jan, [facility] [place] [facility] [address] [id number] [place] [address]- 6470 Jan, [facility] [place] [facility] [address] [id number] [place] [address]- 3431 Jan, [facility] [place] [facility] [address] [id number] [place] [address]- 6126 Jan, [facility] [place] [facility] [address] [id number] [place] [address]- 2952 Jan, [facility] [place] [facility] [address] [id number] [place] [address]- 2122 Jan, [facility] [place] [facility] [address] [id number] [place] [address]- 0223 Jan, [facility] [place] [facility] [address] [id number] [place] [address]- 2959 Jan, [facility] [place] [facility] [address] [id number] [place] [address]- 2573 Nov, [facility] [place] [facility] [address] [id number] [place] [address]- 3980 Nov, [facility] [place] [facility] [address] [id number] [place] [address]- 5931 Nov, [facility] [place] [facility] [address] [id number] [place] [address]- 7481 Oct, [facility] [place] [facility] [address] [id number] [place] [address]- 0636 Oct, [facility] [place] [facility] [address] [id number] [place] [address]- 0266 Oct, [facility] [place] [facility] [address] [id number] [place] [address]- 8224 Oct, [facility] [place] [facility] [address] [id number] [place] [address]- 3534 Oct, [facility] [place] [facility] [address] [id number] [place] [address]- 7045 Oct, [facility] [place] [facility] [address] [id number] [place] [address]- 7382 Oct, [facility] [place] [facility] [address] [id number] [place] [address]- 9558 Oct, [facility] [place] [facility] [address] [id number] [place] [address]- 0727 Oct, [facility] [place] [facility] [address] [id number] [place] [address]- 7782 Sep, [facility] [place] [facility] [address] [id number] [place] [address]- 0467 Sep, [facility] [place] [facility] [address] [id number] [place] [address]- 1423 Sep, [facility] [place] [facility] [address] [id number] [place] [address]- 9485 Sep, [facility] [place] [facility] [address] [id number] [place] [address]- 1518 Sep, [facility] [place] [facility] [address] [id number] [place] [address]- 3269 Sep, [facility] [place] [facility] [address] [id number] [place] [address]- 6490 Sep, [facility] [place] [facility] [address] [id number] [place] [address]- 7618 Sep, [facility] [place] [facility] [address] [id number] [place] [address]- 3737 Sep, [facility] [place] [facility] [address] [id number] [place] [address]- 7462 August, [facility] [place] [facility] [address] [id number] [place] [address]- 0726 August, [facility] [place] [facility] [address] [id number] [place] [address]- 7627 August, [facility] [place] [facility] [address] [id number] [place] [address]- 5080 August, [facility] [place] [facility] [address] [id number] [place] [address]- 3298 August, [facility] [place] [facility] [address] [id number] [place] [address]- 0432 August, [facility] [place] [facility] [address] [id number] [place] [address]- 1753 Jul, [facility] [place] [facility] [address] [id number] [place] [address]- 4919 Jul, [facility] [place] [facility] [address] [id number] [place] [address]- 7503 Jul, [facility] [place] [facility] [address] [id number] [place] [address]- 2354 08 Jul, 2013 [facility] [place] [facility] [address] [id number] [place] [address]- 4774 Jul, [facility] [place] [facility] [address] [id number] [place] [address]- 1746 Jul, [facility] [place] [facility] [address] [id number] [place] [address]- 5702 Jun, [facility] [place] [facility] [address] [id number] [place] [address]- 7798 Jun, [facility] [place] [facility] [address] [id number] [place] [address]- 7908 May, [facility] [place] [facility] [address] [id number] [place] [address]- 6670 May, [facility] [place] [facility] [address] [id number] [place] [address]- 0405 May, [facility] [place] [facility] [address] [id number] [place] [address]- 0565 May, [facility] [place] [facility] [address] [id number] [place] [address]- 4469 Apr, [facility] [place] [facility] [address] [id number] [place] [address]- 1014 Apr, [facility] [place] [facility] [address] [id number] [place] [address]- 1395 Mar, [facility] [place] [facility] [address] [id number] [place] [address]- 8260 Mar, [facility] [place] [facility] [address] [id number] [place] [address]- 0550 Mar, [facility] [place] [facility] [address] [id number] [place] [address]- 4070 Mar, [facility] [place] [facility] [address] [id number] [place] [address]- 8796 Mar, [facility] [place] [facility] [address] [id number] [place] [address]- 4258 Mar, [facility] [place] [facility] [address] [id number] [place] [address]- 0538 Feb, [facility] [place] [facility] [address] [id number] [place] [address]- 3937 Feb, [facility] [place] [facility] [address] [id number] [place] [address]- 1971 Feb, [facility] [place] [facility] [address] [id number] [place] [address]- 3921 Feb, [facility] [place] [facility] [address] [id number] [place] [address]- 5483 Feb, [facility] [place] [facility] [address] [id number] [place] [address]- 8527 Feb, [facility] [place] [facility] [address] [id number] [place] [address]- 6925 Jan, [facility] [place] [facility] [address] [id number] [place] [address]- 5507 Jan, [facility] [place] [facility] [address] [id number] [place] [address]- 4550 Jan, [facility] [place] [facility] [address] [id number] [place] [address]- 5233 Jan, [facility] [place] [facility] [address] [id number] [place] [address]- 4827 08 Jan, 2013 [facility] [place] [facility] [address] [id number] [place] [address]- 1123 Jan, [facility] [place] [facility] [address] [id number] [place] 8140 12 Dec, 2012 [facility] [place] [facility] [address] [id number] [place] 9541 09 Dec, 2012 [facility] [place] [facility] [address] [id number] [place] [address]- 2546 Nov, [facility] [address] [id number] [place] [address]- 1728 Nov, [facility] [address] [id number] [place] [address] 2546 Oct, [facility] [address] [id number] [place] [address]- 4891 Oct, [facility] [address] [id number] [place] [address]- 8531 Oct, [facility] [address] [id number] [place] [address]- 2675 Oct, [facility] [address] [id number] [place] [address]- 7153 Oct, [facility] [address] [id number] [place] [address]- 9907 Oct, [facility] [address] [id number] [place] [address]- 4145 Sep, [facility] [address] [id number] [place] [address]- 1633 Sep, [facility] [address] [id number] [place] [address]- 5724 Sep, [facility] [address] [id number] [place] [address]- 9690 Sep, [facility] [address] [id number] [place] [address]- 2969 August, [facility] [place] [facility] [address] [id number] [place] [address]- 7584 August, [facility] [address] [id number] [place] [address]- 5236 August, [facility] [address] [id number] [place] [address]- 3354 August, [facility] [address] [id number] [place] [address]- 3700 August, [facility] [address] [id number] [place] [address]- 7935 Jul, [facility] [address] [id number] [place] [address]- 3004 Jul, [facility] [address] [id number] [place] [address]- 2692 Jul, [facility] [address] [id number] [place] [address]- 6823 Jul, [facility] [address] [id number] [place] [address]- 7145 Jul, [facility] [address] [id number] [place] [address]- 5772 Jul, [facility] [address] [id number] [place] [address]- 7638 Jul, [facility] [address] [id number] [place] [address]- 4729 Jul, [facility] [address] [id number] [place] [address]- 7781 Jul, [facility] [address] [id number] [place] [address]- 9930 Jul, [facility] [address] [id number] Jun, [facility] [address] [id number] [place] [address]- 9038 Jun, [facility] [address] [id number] [place] [address]- 2741 Jun, [facility] [address] [id number] [place] [address]- 6836 Jun, [facility] [address] [id number] [place] [address]- 6468 Jun, [facility] [address] [id number] [place] [address]- 9686 May, [facility] [address] [id number] [place] [address]- 2939 May, [facility] [address] [facility] [id number] [place] [address]- 1006 May, [facility] [address] [id number] [place] [address]- 2667 Apr, [facility] [address] [id number] [place] [address]- 9102 Apr, [facility] [address] [id number] [place] [address]- 2748 Apr, [facility] [address] [facility] [id number] [place] [address]- 9600 Apr, [facility] [address] [facility] [id number] [place] [address]- 2882 Apr, [facility] [address] [facility] [id number] [place] [address]- 0704 Apr, [facility] [address] [facility] [id number] [place] [address]- 1222 Mar, [facility] [address] [id number] [place] [address]- 4263 Mar, [facility] [place] [facility] [address] [id number] [place] [address]- 2768 Mar, [facility] [place] [facility] [address] [id number] [place] [address]- 9933 Mar, [facility] [place] [facility] [address] [facility] [id number] [place] [address] Feb, [facility] [place] [facility] [address] [facility] [id number] [place] [address] Feb, [facility] [place] [facility] [address] [id number] [place] [address] Feb, [facility] [place] [facility] [address] [id number] [place] [address] Feb, [facility] [place] [facility] [address] [id number] [place] [address] Feb, [facility] [place] [facility] [address] [id number] [place] [address] Feb, [facility] [place] [facility] [address] [id number] [place] [address] Feb, [facility] [place] [facility] [address] [id number] [place] [address] Feb, [facility] [place] [facility] [address] [facility] [id number] [place] [address]- [address] Feb, [facility] [place] [facility] [address] [id number] [place] [address] Feb, [facility] [place] [facility] [address] [id number] [place] [address] Feb, [facility] [place] [facility] [address] [id number] [place] [address] Feb, [facility] [place] [facility] [address] [facility] [id number] [place] [address] Feb, [facility] [place] [facility] [address] [id number] [place] [address]- 2668 Feb, [facility] [place] [facility] [address] [id number] [place] [address] 89[address] Feb, [facility] [place] [facility] [address] [id number] [place] [address] Feb, [facility] [place] [facility] [address] [id number] [place] [address] Jan, [facility] [place] [facility] [address] [id number] [place] [address] 31 Jan, 2012 [facility] [place] [facility] [address] [id number] [place] [address]- [address] 31 Jan, 2012 [facility] [place] [facility] [address] [id number] [place] [address]- [address] 31 Jan, 2012 [facility] [place] [facility] [address] [id number] [place] [address] 113[address] 30 Jan, 2012 [facility] [place] [facility] [address] [id number] [place] [address] 9460 Jan, [facility] [place] [facility] [address] [id number] [place] [address] 25 Jan, 2012 [facility] [place] [facility] [address] [id number] [place] [address] 16 Jan, 2012 [facility] [place] [facility] [address] [id number] [place] [address] 16 Jan, 2012 [facility] [place] [facility] [address] [id number] [place] [address] 15 Jan, 2012 [facility] [place] [facility] [address] [id number] [place] [address] 15 Jan, 2012 [facility] [place] [facility] [address] [id number] [place] [address] Jan, [facility] [place] [facility] [address] [id number] [place] [address] 26 Dec, 2011 [facility] [place] [facility] [address] [id number] [place] [address] 26 Sep, 2011 [facility] [place] [facility] [address] [id number] [place] [address]- [address]285 24 Sep2011 [facility] [place] [facility] [address] [id number] [place] [address] 23 Sep, 2011 [facility] [place] [facility] [address] [id number] [place] [address]- [address] 22 Sep, 2011 [facility] [place] [facility] [address] [id number] [place] [address] 8595 21 Sep, 2011 [facility] [place] [facility] [address] [id number] [place] [address] 2546 20 Sep, 2011 [facility] [place] [facility] [address] [id number] [place] [address] 2546 20 Dec, 2011 [facility] [place] [facility] [address] [id number] [place] [address] 2546 07 Sep, 2011 [facility] [place] [facility] [address] [id number] [place] [address] 2546 06 Sep, 2011 [facility] [place] [facility] [address] [id number] [place] [address]- [address] 06 Sep, 2011 [facility] [place] [facility] [address] [id number] [place] [address] 2546 05 Dec, 2011 [facility] [place] [facility] [address] [id number] [place] [address]- [address]298 23 Nov, 2011 [facility] [place] [facility] [address] [id number] [place] [address]- 4516 17 Nov, 2011 [facility] [place] [facility] [address] [id number] [place] [address]- 1806 13 Nov, 2011 [facility] [place] [facility] [address] [id number] [place] [address]- 8717 10 Nov, 2011 [facility] [place] [facility] [address] [id number] [place] [address] 2546 08 Nov, 2011 [facility] [place] [facility] [address] [id number] [place] [address] 2542 Nov, [facility] [place] [facility] [address] [id number] [place] [address]- 1466 Nov, [facility] [place] [facility] [address] [id number] [place] [address]- [address] Nov, [facility] [place] [facility] [address] [id number] [place] [address] Oct, [facility] [place] [facility] [address] [id number] [place] [address]- 2060 Oct, [facility] [place] [facility] [address] [id number] [place] [address] 9668 Oct, [facility] [place] [facility] [address] [id number] [place] [address]- 30[address] Oct, [facility] [place] [facility] [address] [id number] [place] [address]- [address] Oct, [facility] [place] [facility] [address] [id number] [place] [address] Oct, [facility] [place] [facility] [address] [id number] [place] [address] Oct, [facility] [place] [facility] [address] [id number] [place] [address] Sep, [facility] [place] [facility] [address] [id number] [place] [address] Sep, [facility] [place] [facility] [address] [id number] [place] [address] August, [facility] [place] [facility] [address] [id number] [place] [address] August, [facility] [place] [facility] [address] [id number] [place] [address] August, [facility] [place] [facility] [address] [id number] [place] [address] August, [facility] [place] [facility] [address] [id number] [place] [address] Jul, [facility] [place] [facility] [address] [id number] [place] [address] Jul, [facility] [place] [facility] [address] [id number] [place] [address] Jul, [facility] [place] [facility] [address] [id number] [place] [address] Jul, [facility] [place] [facility] [address] [id number] [place] [address] Jul, [facility] [place] [facility] [address] [id number] [place] [address] Jul, [facility] [place] [facility] [address] [id number] [place] [address] Jul, [facility] [place] [facility] [address] [id number] [place] [address] Jul, [facility] [place] [facility] [address] [id number] [place] [address] Jul, [facility] [place] [facility] [address] [id number] [place] [address] Jun, [facility] [place] [facility] [address] [id number] [place] [address] Jun, [facility] [place] [facility] [address] [id number] [place] [address] 15 Jun, 2011 [facility] [place] [facility] [address] [id number] [place] [address] 14 Jun, 2011 [facility] [place] [facility] [address] [id number] [place] [address] Jun, [facility] [place] [facility] [address] [id number] [place] [address] Jun, [facility] [place] [facility] [address] [id number] [place] [address] Jun, [facility] [place] [facility] [address] [id number] [place] [address] May, [facility] [place] [facility] [address] [id number] [place] [address] 24 May, 2011 [facility] [place] [facility] [address] [id number] [place] [address] 16 May, 2011 [facility] [place] [facility] [address] [id number] [place] [address] 16 May, 2011 [facility] [address] [id number] [place] [address] 03 May, 2011 [facility] [place] [facility] [address] [id number] [place] [address] 27 Apr, 2011 [facility] [place] [facility] [address] [id number] [place] [address] Apr, [facility] [place] [facility] [address] [id number] [place] [address] Apr, [facility] [place] [facility] [address] [id number] [place] [address] Apr, [facility] [place] [facility] [address] [id number] [place] [address] Apr, [facility] [place] [facility] [address] [id number] [place] [address] Mar, [facility] [address] [id number] [place] [address] Mar, [facility] [place] [facility] [address] [id number] [place] [address] Mar, [facility] [place] [facility] [address] [id number] [place] [address] Mar, [facility] [place] [facility] [address] [id number] [place] [address] Mar, [facility] [place] [facility] [address] [id number] [place] [address] Mar, [facility] [place] [facility] [address] [id number] [place] [address] Mar, [facility] [place] [facility] [address] [id number] [place] [address] 11 Feb, 2011 [facility] [place] [facility] [address] [id number] [place] [address] Feb, [facility] [place] [facility] [address] [id number] [place] [address] Feb, [facility] [place] [facility] [address] [id number] [place] [address] Feb, [facility] [place] [facility] [address] [id number] [place] [address]- [address] Jan, [facility] [place] [facility] [address] [id number] [place] [address] Jan, [facility] [place] [facility] [address] [id number] [place] [address]- [address] Jan, [facility] [place] [facility] [address] [id number] [place] [address] Jan, [facility] [place] [facility] [address] [id number] [place] [address] Nov, [facility] [place] [facility] [address] [id number] [place] [address] Mar, [facility] [place] [facility] [address] [id number] [place] [address] Mar, [facility] [place] [facility] [address] [id number] [place] [address]- [address] Mar, [facility] [place] [facility] [address] [id number] [place] [address] Mar, [facility] [place] [facility] [address] [id number] [place] [address] Mar, [facility] [place] [facility] [address] [id number] [place] [address]- 1436 Mar, [facility] [place] [facility] [address] [id number] [place] [address] 2007 Feb, [facility] [place] [facility] [address] [id number] [place] [address] Feb, [facility] [place] [facility] [address] [facility] [id number] [place] [address] Jan, [facility] [address] [facility] [id number] [place] [address] Jan, [facility] [address] [facility] [id number] [place] [address] Jan, IMMUNIZATIONS No Known Immunizations SOCIAL HISTORY Never Assessed REASON FOR VISIT Sooner appt PLAN OF CARE VITAL SIGNS MEDICATIONS Unknown [...] 2020 & 2007 Surgical History Bladder surgery [facility] 03/2016 Hospitalization History Surgeries Only Hospitalization History 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
--- OUTSIDE RECORDS SUMMARY | 2018-05-29 08:41 | XMS REPORT ---
Author Author ISABEL MAE [facility] Address [address] [place] [address] Care Team Providers Care Nursing Service Director Name Role Phone ISABEL MAE Unavailable PROBLEMS Type Condition ICD9-CM Code SUO06-SW Code Onset Dates Condition Status SNOMED Code Problem Long-term use of high-risk medication Z79.899 Active 461070350 Problem Abnormal chest CT R93.8 Active 962919582 Problem Generalized anxiety disorder F41.1 Active 90120822 Problem Low back pain M54.5 Active 360527653 Problem Dysthymic disorder F34.1 Active 92633254 Problem Depressed F32.9 Active 57981783 Problem Coronary artery disease involving che[place]is coronary artery of che[place]is heart, angina presence unspecified I25.10 Active 3349166697479 Problem Hypothyroid E03.9 Active 81534790 Problem Insomnia G47.00 Active 721881110 Problem Vitamin D deficiency E55.9 Active 19533717 Problem Asthma J45.909 Active 334808442 Problem Chronic kidney disease, unspecified N18.9 Active 395009415 Problem Palpitations R00.2 Active 55707769 Problem Anemia in chronic kidney disease D63.1 Active [id number] Problem Primary osteoarthritis of left knee M17.12 Active 351553437 Problem Bipolar disorder, current episode manic without psychotic features F31.10 Active 016131263 Problem Restless leg syndrome G25.81 Active 96792913 Problem Seasonal allergic rhinitis due to pollen J30.1 Active 09319048 Problem Functional 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 Active 02530188 Problem Chronic kidney disease, stage 4 (severe) N18.4 Active 214624742 Problem Restless leg G25.81 Active 11631167 Problem Mood disorder F39 Active 67882882 Problem Degenerative tear of medial meniscus of left knee M23.204 Active 507561585 Problem Body mass index (BMI) of 40.0-44.9 in adult Z68.41 Active 423916514 Problem Stage 3 chronic kidney disease N18.3 Active 173365703 Problem Asthma with acute exacerbation in adult J45.901 Active 770215665 Problem Other seasonal allergic rhinitis J30.2 Active 335587479 Problem History of colon polyps Z86.010 Active 857362231 Problem History of anemia Z86.2 Active 006049996 Problem Fibromyalgia M79.7 Active 128851175 Problem Essential (primary) hypertension I10 Active 89099464 Problem Hypokalemia E87.6 Active 44625527 Problem Mixed stress and urge urinary incontinence N39.46 Active 809548390 ALLERGIES No Information ENCOUNTERS Encounter Location Date Diagnosis [place] [address] [address] Dec, [place] [address] [address]- [address] Nov, [place] [address] [address]- [address] Nov, [place] [address] [address]- 6283 Nov, Generalized anxiety disorder F41.1 and Major depressive disorder, recurrent episode with anxious distress F33.9 [place] [address] [address]- 8985 Nov, Fibromyalgia M79.7 [place] [address] [address]- 4211 Nov, Complicated UTI (urinary tract infection) N39.0 [place] [address] [address]- [address] Oct, [place] [address] [address]- 6597 Oct, Generalized anxiety disorder F41.1 and Major depressive disorder, recurrent episode with anxious distress F33.9 [place] [address] [address]- 6[address] Oct, [place] [address] [address]23- 4555 Oct, Fibromyalgia M79.7 [facility] [place] [address] [place] [id number] [place] [address] 58820- 0858 Sep, Restless leg syndrome G25.81 and Restless leg G25.81 [facility] [place] [address] [place] [id number] [place] [address] 25310- 5605 Sep, [facility] [place] [address] [address]- 1785 Sep, Seasonal allergic rhinitis due to pollen J30.1 ; Screening for breast cancer Z12.31 ; Chest pain at rest R07.9 ; Restless leg syndrome G25.81 ; Essential (primary) hypertension I10 and Depressed F32.9 [facility] [place] [address] [place] [id number] [place] [address] 57419- 4099 August, Fibromyalgia M79.7 [place] [address] [place] [id number] [place] [address] 19960- 5487 August, [facility] [place] [address] [place] [id number] [place] [address] 24430- 5895 August, [place] [address] [place] [id number] [place] [address] 75156- [address] August, [address] R93.8 [place] [address] [place] [id number] [place] [address] 08429- 4358 August, Generalized anxiety disorder F41.1 and Major depressive disorder, recurrent episode with anxious distress F33.9 [facility] [place] [address] [place] [id number] [place] [address] 92620- 9810 August, Abnormal chest [address] R93.8 [place] [address] [place] [id number] [place] [address] 43740- 6751 Jul, [facility] [place] [address] [place] [id number] [place] [address] 48694- 6190 Jul, Chronic kidney disease, stage 4 (severe) N18.4 [facility] [place] [address] [place] [address] [address]14 Jul, [facility] [place] [address] [place] [id number] [place] [address] 23199- 2429 Jul, Restless leg G25.81 ; Mixed stress and urge urinary incontinence N39.46 and Fibromyalgia M79.7 [facility] [place] [address] [place] [id number] [place] [address] 14064- 9414 Jul, Chronic kidney disease, stage 4 (severe) N18.4 [facility] [place] [address] [place] [id number] [place] [address] 97830- 1783 Jun, Orthostatic hypotension I95.1 ; Chronic kidney disease, stage 4 (severe) N18.4 ; Chest wall discomfort R07.89 and Body mass index (BMI) of 40.0-44.9 in adult Z68.41 [place] [address] [place] [id number] [place] [address] 74080- 2791 Jun, [facility] [place] [address] [place] [id number] [place] [address] 57428- 4263 Jun, Orthostatic hypotension I95.1 [facility] [place] [address] [place] [id number] [place] [address] 89841- 9029 Jun, [facility] [id number] [place] [address] 59542 -0169 Jun, Orthostatic hypotension I95.1 ; Dysuria R30.0 and Acute cystitis without hematuria N30.00 [facility] [place] [address] [place] [id number] [address]- 8336 Jun, [facility] [place] [address] [place] [id number] [place] [address] 80874- 5608 Jun, Chronic kidney disease, stage 4 (severe) N18.4 [facility] [place] [address] [place] [id number] [address]- 6081 Jun, Fibromyalgia M79.7 [facility] [place] [address] [place] [id number] [place] [address] 50618- 1911 Jun, [facility] [place] [address] [address]- 1158 Jun, [facility] [place] [address] [place] [id number] [place] [address] 16663- 67[address] May, [address] R93.8 and Stage 3 chronic kidney disease N18.3 [facility] [place] [address] [place] [id number] [place] [address] 37612- 4693 May, Chronic kidney disease, stage 4 (severe) N18.4 [facility] [place] [id number] [place] [address] 28289- 0232 May, Chronic kidney disease, stage 4 (severe) N18.4 [facility] [place] [id number] [place] [address] 06519- 0307 May, Ab[address] R93.8 [facility] [place] [id number] [place] [address] 98177- 2318 May, [facility] [place] [id number] [place] [address] 72278- 0716 May, [facility] [place] [id number] [place] [address] 18227- 3918 May, Generalized anxiety disorder F41.1 and Major depressive disorder, recurrent episode with anxious distress F33.9 [facility] [place] [id number] [place] [address] 82440- 5133 May, Mood disorder F39 [facility] [place] [id number] [place] [address] 35494- 2244 Apr, [facility] [place] [address] [place] [id number] [place] [address] 41381- 7989 Apr, Infected skin lesion L08.9 and Muscle strain of right shoulder region, initial encounter S46.911A [facility] [place] [id number] [place] [address] 76661- 8925 Apr, Generalized anxiety disorder F41.1 and Major depressive disorder, recurrent episode with anxious distress F33.9 [facility] [place] [address] [place] [id number] [place] [address] 73717- 3721 Apr, [facility] [place] [address] [place] [id number] [place] [address] 72140- 9738 Apr, Recent urinary tract infection Z87.440 and Hypothyroid E03.9 [place] [address] 49940- 2927 Apr, Generalized anxiety disorder F41.1 and Major depressive disorder, recurrent episode with anxious distress F33.9 [place] [address] 44729- 1664 Apr, Recent urinary tract infection Z87.440 [place] [address] [place] [id number] [place] [address] 68929- 8318 Mar, [facility] [address] 45822 -6078 Mar, Dysuria R30.0 ; Acute cystitis without hematuria N30.00 and BMI 40.0-44.9, adult Z68.41 [place] [address] [place] [id number] [place] [address] 94475- 2379 Mar, [place] [address] [place] [id number] [place] [address] 31643- 4294 Mar, [place] [address] [place] [id number] [place] [address] 62678- 0076 Mar, Generalized anxiety disorder F41.1 and Major depressive disorder, recurrent episode with anxious distress F33.9 [place] [address] [place] [id number] [place] [address] 60783- 2013 Feb, Conjunctivitis, bacterial H10.9 [place] [address] [place] [id number] [place] [address] 81082- 5974 Feb, [facility] [address] 98415 -4698 Feb, Conjunctivitis, bacterial H10.9 [facility] [place] [address] [place] [id number] [place] [address] 07745- 1905 Feb, [facility] IN [facility] [address] [place] [id number] [place] [address] 60161 -2625 Feb, Dysuria R30.0 ; Acute cystitis N30.00 and BMI 40.0-44.9, adult Z68.41 [facility] [place] [address] [place] [id number] [place] [address] 37452- 1510 Feb, [facility] [place] [address] [place] [id number] [place] [address] 16041- 4592 Feb, Generalized anxiety disorder F41.1 and Major depressive disorder, recurrent episode with anxious distress F33.9 [place] [address] [place] [id number] [place] [address] 15839- 7276 Feb, Mood disorder F39 and BMI 40.0-44.9, adult Z68.41 [facility] [place] [address] [place] [id number] [place] [address] 86514- 6844 Jan, [facility] [place] [address] [place] [id number] [place] [address] 86918- 9735 Jan, [facility] [place] [address] [place] [id number] [place] [address] 56943- 6037 Jan, Hypothyroid E03.9 [facility] [place] [address] [place] [id number] [place] [address] 08106- 3380 Jan, [facility] [place] [address] [place] [id number] [place] [address] 58929- 7378 04 Jan, 2017 Chronic kidney disease, unspecified N18.9 ; Hypokalemia E87.6 ; Essential (primary) hypertension I10 ; Fibromyalgia M79.7 ; Coronary artery disease involving [place] coronary artery of che[place] heart, angina presence unspecified I25.10 ; Hypothyroid E03.9 and Encounter for immunization Z23 [facility] [place] [address] [place] [id number] [place] [address] 75083- 6453 04 Jan, 2017 Hypothyroid E03.9 [facility] [place] [id number] [place] [address] 51225- 2882 02 Jan, 2017 [facility] [place] [id number] [place] [address] 17887- 6632 28 Dec, 2016 Vitamin D deficiency E55.9 [facility] [place] [id number] [place] [address] 25582- 5556 28 Dec, 2016 Primary osteoarthritis of left knee M17.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 [facility] [place] [address] [place] [id number] [place] [address] 83183- 5597 19 Dec, 2016 Fibromyalgia M79.7 [facility] [place] [address] [place] [id number] [place] [address] 22200- 8342 18 Dec, 2016 Mood disorder F39 [facility] [place] [address] [place] [id number] [place] [address] 04127- 7285 13 Dec, 2016 [facility] [place] [id number] [place] [address] 30435- 8214 13 Dec, 2016 Generalized anxiety disorder F41.1 and Major depressive disorder, recurrent episode with anxious distress F33.9 [facility] [place] [address] [address]- 3018 11 Dec, 2016 [facility] [place] [id number] [place] [address] 77079- 2760 08 Dec, 2016 Streptococcal meningitis G00.2 [facility] [place] [address] [address]- 254 07 Dec, 2016 Streptococcal meningitis G00.2 [facility] [place] [id number] [place] [address] 59719- 4936 07 Dec, 2016 [facility] [place] [address] [address]- 6185 06 Dec, 2016 [facility] [place] [id number] [place] [address] 52276- 6279 Dec, Streptococcal meningitis G00.2 [facility] [place] [id number] [place] [address] 98207- 9841 Dec, Major depressive disorder, recurrent episode with anxious distress F33.9 [facility] [place] [address] [place] [id number] [place] [address] 76218- 8906 Nov, Fever, unspecified fever cause R50.9 [facility] [place] [address] [place] [id number] [place] [address] 31543- 6806 Nov, [facility] [place] [address] [place] [id number] [place] [address] 24428- 8695 Nov, Hypothyroid E03.9 [place] [address] [place] [id number] [place] [address] 69883- 0674 Nov, Generalized anxiety disorder F41.1 and Major depressive disorder, recurrent episode with anxious distress F33.9 [place] [address] [place] [id number] [place] [address] 63313- 9058 Nov, [facility] [address] [id number] [place] [address] [id number] Oct, Dental examination Z01.20 [place] [address] [place] [id number] [place] [address] 07003- 5339 Oct, Generalized anxiety disorder F41.1 and Major depressive disorder, recurrent episode with anxious distress F33.9 [place] [address] [place] [id number] [place] [address] 37423- 0361 Oct, Chronic kidney disease, stage 4 (severe) N18.4 [facility] [place] [address] [place] [id number] [place] [address] 18441- 8223 Oct, [facility] [place] [address] [place] [id number] [place] [address] 60020- 5992 Oct, Fibromyalgia M79.7 [facility] [place] [id number] [place] [address] 26026- 7513 Oct, [facility] [place] [address] [address]- 3890 Oct, Generalized anxiety disorder F41.1 ; Major depressive disorder, recurrent episode with anxious distress F33.9 and Bipolar disorder, current episode manic without psychotic features F31.10 [place] [address] [address]- 9387 Sep, [place] [address] [place] [id number] [place] [address] 48028- 7770 Sep, [place] [address] [place] [id number] [place] [address] 86257- 2976 Sep, Vitamin D deficiency E55.9 [place] [id number] [place] [address] 25675- 6378 Sep, Vitamin D deficiency E55.9 [place] [id number] [place] [address] 54223- 8549 Sep, [place] [id number] [place] [address] 28857- 8032 Sep, Chronic kidney disease, stage 4 (severe) N18.4 ; Hypothyroid E03.9 ; Restless leg G25.81 ; Fibromyalgia M79.7 ; Essential ( primary) hypertension I10 ; Vitamin D deficiency E55.9 ; Dyspepsia R10.13 ; Anemia in chronic kidney disease D63.1 ; Chronic kidney disease, unspecified N18.9 ; Coronary artery disease involving [place] coronary artery of che[place] heart , angina presence unspecified I25.10 ; Screening breast examination Z12.39 and Low back pain M54.5 [place] [id number] [place] [address] 33666- 4837 August, Generalized anxiety disorder F41.1 and Major depressive disorder, recurrent episode with anxious distress F33.9 [place] [address] [address]- 6998 August, Generalized anxiety disorder F41.1 and Major depressive disorder, recurrent episode with anxious distress F33.9 [place] [address] [id number] [address]- 8866 August, Fibromyalgia M79.7 [place] [id number] [place] [address] 29954- 1198 Jul, Generalized anxiety disorder F41.1 and Major depressive disorder, recurrent episode with anxious distress F33.9 [place] [id number] [place] [address] 72837- 1734 Jul, Fibromyalgia M79.7 [place] [address] [id number] [place] [address] 54449- 3307 Jul, Generalized anxiety disorder F41.1 [place] [address] [place] [id number] [place] [address] 98975- 3322 May, [place] [address] [id number] [place] [address] 74010- 7806 May, Hypothyroid E03.9 [place] [id number] [place] [address] 81402- 0808 May, Chronic kidney disease, stage 4 (severe) N18.4 ; Hypothyroid E03.9 ; Restless leg G25.81 ; Fibromyalgia M79.7 ; Essential ( primary) hypertension I10 ; Vitamin D deficiency E55.9 ; Dyspepsia R10.13 ; Acute non-recurrent maxillary sinusitis J01.00 ; Anemia in chronic kidney disease D63.1 ; Chronic kidney disease, unspecified N18.9 and Coronary artery disease involving che[place]is coronary artery of che[place] heart, angina presence unspecified I25.10 [place] [id number] [place] [address] 23693- 2007 May, Vitamin D deficiency, unspecified E55.9 [place] [id number] [place] [address] 84286- 8923 May, Generalized anxiety disorder F41.1 and Major depressive disorder, recurrent episode with anxious distress F33.9 [place] [id number] [place] [address] 61727- 2121 Apr, Pain in right knee M25.561 and Pain in left knee M25.562 [place] [address] [id number] [place] [address] 22085- 4177 Apr, [place] [id number] [place] [address] 56785- 0856 Apr, [place] [id number] [place] [address] 60389- 9892 Apr, [place] [id number] [place] [address] 14917- 1755 Mar, Generalized anxiety disorder F41.1 and Major depressive disorder, recurrent episode with anxious distress F33.9 [place] [id number] [place] [address] 79671- 1790 Mar, Generalized anxiety disorder F41.1 and Major depressive disorder, recurrent episode with anxious distress F33.9 [place] [address] [id number] [place] [address] 82288- 9541 Mar, [place] [id number] [place] [address] [id number] [phone] Mar, [place] [id number] [place] [address] [id number]- 3138 Mar, [place] [id number] [place] [address] [id number]- 5830 Mar, Asthma J45.909 and Fibromyalgia M79.7 [place] [id number] [place] [address] 71451- 0939 Mar, Chronic kidney disease, stage 4 (severe) N18.4 ; Vitamin D deficiency E55.9 and Essential (primary) hypertension I10 [place] [id number] [place] [address] [id number]- 9097 Feb, [place] [id number] [place] [address] [id number]- 7226 Feb, Dysuria R30.0 ; Mixed stress and urge urinary incontinence N39.46 ; Fibromyalgia M79.7 and Chronic kidney disease, stage IV (severe) N18.4 [facility] [place] [id number] [place] [address] [id number] 2546 Feb, Chronic kidney disease, stage 4 (severe) N18.4 [facility] [place] [id number] [place] [address] [id number] 2546 Feb, Chronic kidney disease, stage 4 (severe) N18.4 [facility] [place] [id number] [place] [address] [id number] 2546 Feb, [facility] [place] [id number] [place] [place] [address] 99818 2546 Feb, Vitamin D deficiency, unspecified E55.9 [facility] [place] [id number] [place] [address] 05475 2546 Jan, [facility] [place] [id number] [place] [address] 45855 2546 Jan, [facility] [place] [id number] [place] [address] 09413 2546 30 Dec, 2015 [facility] [place] [id number] [place] [address] 65996 2546 28 Dec, 2015 Chronic kidney disease, stage 4 (severe) N18.4 [facility] [place] [id number] [place] [address] 20606 2546 Dec, Dysthymic disorder F34.1 and Generalized anxiety disorder F41.1 [facility] [place] [id number] [place] [address] 15144 2546 27 Dec, 2015 [facility] [place] [id number] [place] [address] 73461 2546 26 Dec, 2015 [facility] [place] [id number] [place] [address] 62518 2546 08 Dec, 2015 Dysthymic disorder F34.1 and Generalized anxiety disorder F41.1 [facility] [place] [address] 28677- 0050 Dec, Dysuria R30.0 ; Chronic kidney disease, stage 4 (severe) N18.4 ; Hypertension I10 ; Dyspepsia R10.13 ; Yeast dermatitis B37.2 ; Palpitations R00.2 ; Hypothyroid E03.9 ; Functional diarrhea K59.1 and Other seasonal allergic rhinitis J30.2 [facility] [address] [address] Dec, [facility] [address] [address]68 Nov, Dysuria R30.0 and Stress incontinence N39.3 [place] [address] 44721- 9068 Nov, [place] [address] 61302- 9480 Nov, [place] [address] 74554- 1043 Nov, Osteoarthritis of knees, bilateral M17.0 [place] [address] 35868- 8086 Nov, Dysthymic disorder F34.1 and Generalized anxiety disorder F41.1 [place] [address] 40591- 6166 Nov, [place] [address] 83358- 6775 Nov, [place] [address] 44161- 5579 Nov, Urgency of urination R39.15 [place] [address] 82655- 2295 Nov, [place] [address] 80296- 5611 Nov, Chronic kidney disease, stage 4 (severe) N18.4 [place] [id number] [place] [address] 94567- 7869 Oct, Hypertension I10 ; Coronary artery disease involving chehalis coronary artery of chehalis heart, angina presence unspecified I25.10 ; Palpitations R00.2 ; Hypothyroid E03.9 ; Right foot pain M79.671 ; Functional diarrhea K59.1 and Other seasonal allergic rhinitis J30.2 [place] [address] 50571- 1813 Oct, Dysthymic disorder F34.1 and Generalized anxiety disorder F41.1 [place] [id number] [place] [address] 29136- 6856 Sep, [place] [address] 79431- 6710 Sep, [place] [address] 79035- 4075 Sep, [place] [id number] [place] [address] 45477- 1005 Sep, [place] [id number] [place] [address] 69739- 5341 Sep, [place] [id number] [place] [address] 30383- 0093 Sep, Dysthymic disorder F34.1 and Generalized anxiety disorder F41.1 [place] [id number] [place] [address] 52624- 0430 Sep, Asthma with acute exacerbation in adult J45.901 ; Dysuria R30.0 ; Chronic kidney disease, stage 4 (severe) N18.4 and History of anemia Z86.2 [place] [id number] [place] [address] 94707- 1225 Sep, Generalized anxiety disorder F41.1 and Dysthymic disorder F34.1 [place] [id number] [place] [address] 63240- 6940 August, Screening breast examination Z12.39 and Acute recurrent maxillary sinusitis J01.01 [place] [id number] [place] [address] 01428- 0145 August, Osteoarthritis of knees, bilateral M17.0 [place] [id number] [place] [address] 37447- 9117 August, Chronic kidney disease, stage 4 (severe) N18.4 ; Acute non- recurrent maxillary sinusitis J01.00 ; Urinary problem R39.89 ; Bowel habit changes R19.4 ; Functional diarrhea K59.1 and History of colon polyps Z86.010 [place] [address] 48667- 1929 Jul, Dysthymic disorder F34.1 and Generalized anxiety disorder F41.1 [place] [address] 11426- 8983 Jul, [place] [address] 84168- 3588 Jul, Dysthymic disorder F34.1 ; Generalized anxiety disorder F41.1 and [facility]CI use of drug Z79.899 [place] [address] 30249- 3045 Jul, [place] [id number] [place] [address] 57213- 6773 Jun, [place] [id number] [place] [address] 71975- 5148 Jun, [place] [id number] [place] [address] 72539- 9098 May, [place] [address] 72643- 7519 May, Dysthymic disorder F34.1 and Generalized anxiety disorder F41.1 [place] [id number] [place] [address] 09248- 6665 Apr, Kidney disease N28.9 [place] [id number] [place] [address] 81752- 1240 Apr, Generalized anxiety disorder F41.1 and Dysthymic disorder F34.1 [place] [address] 07416- 6556 Apr, Chronic kidney disease, stage 4 (severe) N18.4 [place] [address] 41409- 9125 Apr, Generalized anxiety disorder F41.1 ; Major depression, recurrent F33.9 and Sleep disturbance G47.9 [place] [address] 908775- 5969 Mar, Generalized anxiety disorder F41.1 and Dysthymic disorder F34.1 [place] [address] 48095- 9591 Mar, Generalized anxiety disorder F41.1 ; Dysthymic disorder F34.1 and Insomnia G47.00 [place] [address] 53681- 9074 Mar, [place] [address] 36877- 2584 Mar, [place] [address] 01704- 3747 Mar, Osteoarthritis of knees, bilateral M17.0 [place] [address] 87728- 4211 Mar, Hypertension I10 ; Hypothyroid E03.9 ; Dysthymic disorder F34.1 ; Chronic kidney disease, stage 4 (severe) N18.4 and Nausea & vomiting R11.2 [place] [address] 95700- 5715 Mar, Generalized anxiety disorder F41.1 ; Dysthymic disorder F34.1 and Insomnia G47.00 [place] [address] [place] [address]- 6790 Mar, Dehydration E86.0 ; Chronic kidney disease, stage 4 (severe ) N18.4 and Nausea & vomiting R11.2 [facility] [id number] [place] [address] 49335 -7149 Mar, Gastroenteritis K52.9 [facility] [place] [address] [place] [id number] [place] [address] 73976- 4394 Mar, [place] [address] 73403- 5419 Mar, [address] 34944- 6547 Feb, Dysthymic disorder F34.1 and Generalized anxiety disorder F41.1 [place] [id number] [place] [address] 04909- 1106 Jan, UTI (urinary tract infection) N39.0 ; Asthma J45.909 ; Coronary artery disease involving chehalis coronary artery of chehalis heart, angina presence unspecified I25.10 ; Hypertension I10 ; Hypothyroid E03.9 ; Vitamin D deficiency E55.9 ; Insomnia G47.00 ; Palpitations R00.2 ; Depressed F32.9 ; Restless leg G25.81 and Anxiety F41.9 [address] [id number] [place] [address] 30926- 7157 Jan, Dysthymic disorder F34.1 and Generalized anxiety disorder F41.1 [place] [id number] [place] [address] 40789- 4260 Jan, [place] [id number] [place] [address] 89778- 6121 Dec, [place] [id number] [place] [address] 28042- 6740 Dec, Alkalosis 276.3 ; Chronic kidney disease, 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.4 ; Hyperpotassemia 276.7 ; Secondary hyperparathyroidism, renal 588.81 ; Proteinuria 791.0 ; Unspecified vitamin D deficiency 268.9 ; Anemia in chronic kidney disease 285.21 ; Other and unspecified hyperlipidemia 272.4 ; Hypertension, essential, benign 401.1 and Chronic kidney disease (CKD), stage III (moderate) 585.3 [place] [id number] [place] [address] 04017- 1296 Dec, [place] [address] 07074- 6660 Dec, Depressive disorder, not elsewhere classified 311 and Generalized anxiety disorder 300.02 [place] [id number] [place] [address] 57360- 1115 Dec, [address] 10775- 3593 Dec, [place] [address] 50114- 4885 Nov, Depressive disorder, not elsewhere classified 311 and Generalized anxiety disorder 300.02 [place] [id number] [place] [address] 91202- 7928 Nov, Arthritis of both knees 716.[address] 82342- 7894 Nov, PAF (paroxysmal atrial fibrillation) 427.31 ; CAD (coronary artery disease) 414.00 ; Chest pain 786.50 and Chronic kidney disease (CKD) stage G4/A1, severely decreased glomerular filtration rate (GFR) between 15-29 mL/min/1.73 square meter and albuminuria creatinine ratio less than 30 mg/g 585.4 [place] [id number] [place] [address] 14442- 5586 Oct, Coronary atherosclerosis of unspecified type of vessel, chehalis or graft 414.00 ; Chronic kidney disease, 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.4 ; Hypertension 401.9 and Edema 782.3 [address] [place] [id number] [place] [address] 20364- 0498 Oct, Depressive disorder, not elsewhere classified 311 and Generalized anxiety disorder 300.02 [facility] [place] [id number] [place] [address] 74936- 1390 Oct, Depressive disorder, not elsewhere classified 311 and Generalized anxiety disorder 300.02 [facility] [place] [id number] [place] [address] 94006- 6956 Oct, [facility] [place] [id number] [place] [address] 07633- 4523 Oct, [facility] [place] [id number] [place] [address] 44779- 0572 Sep, [facility] [place] [address] 78657- 5345 Sep, Chronic kidney disease, 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.4 [place] [id number] [place] [address] 81697- 5691 Sep, [facility] [place] [id number] [place] [address] 09301- 7289 Sep, Coronary atherosclerosis of unspecified type of vessel, chehalis or graft 414.00 ; Hypertension 401.9 ; Edema 782.3 and Hypothyroidism 244.9 [address] [id number] [place] [address] 84924- 5968 Sep, Coronary atherosclerosis of unspecified type of vessel, chehalis or graft 414.00 ; Hypertension 401.9 ; Fibromyalgia 729.1 ; Edema 782.3 ; Hypothyroidism 244.9 and Anemia 285.9 [facility] [place] [id number] [place] [address] 86132- 4332 Sep, Anxiety disorder, unspecified 300.00 and Depressive disorder , not elsewhere classified 311 [facility] [place] [id number] [place] [address] 79504- 9340 Sep, [facility] [place] [id number] [place] [address] 62494- 9283 August, Generalized anxiety disorder 300.02 [facility] [place] [address] 74849- 0625 August, Closed fracture of lateral malleolus 824.2 [facility] [address] [id number] [place] [address]- 1571 14 Jul, 2014 [facility] [address] [id number] [place] [address]- 7764 Jul, [facility] [address] [id number] [place] [address]- 6365 Jun, [facility] [address] [id number] [place] [address]- 9467 Jun, [facility] [address] [facility] [id number] [place] [address]- 7782 Jun, [facility] [address] [facility] [id number] [place] [address]- 3750 Jun, [facility] [address] [id number] [place] [address]- 8397 Jun, [facility] [address] [facility] [id number] [place] [address]- 1308 Jun, [facility] [address] [id number] [place] [address]- 6558 May, [facility] [address] [facility] [id number] [place] [address]- 2159 19 May, 2014 [facility] [address] [facility] [id number] [place] [address]- 5468 18 May, 2014 [facility] [address] [facility] [id number] [place]- 9258 18 May, 2014 [facility] [address] [facility] [id number] [place]- 8904 16 May, 2014 [facility] [address] [facility] [id number] [place]- 2186 16 May, 2014 [facility] [address] [facility] [id number] [place] [address]- 0933 13 May, 2014 [facility] [place] [facility] [address] [id number] [place] [address]- 3106 13 May, 2014 [facility] [place] [facility] [address] [id number] [place] [address]- 4818 10 May, 2014 [facility] [place] [facility] [address] [id number] [place] [address]- 2258 May, [facility] [place] [facility] [address] [id number] [place] [address]- 5443 Apr, [facility] [place] [facility] [address] [id number] [place] [address]- 8859 Apr, [facility] [place] [facility] [address] [id number] [place] [address]- 7870 Mar, [facility] [place] [facility] [address] [id number] [place] [address]- 0065 Mar, [facility] [place] [facility] [address] [id number] [place] [address]- 8366 Mar, [facility] [place] [facility] [address] [id number] [place] [address]- 7870 Mar, [facility] [place] [facility] [address] [id number] [place] [address]- 6805 Mar, [facility] [place] [facility] [address] [id number] [place] [address]- 4123 Mar, [facility] [place] [facility] [address] [id number] [place] [address]- 3372 Mar, [facility] [place] [facility] [address] [id number] [place] [address]- 0417 Feb, [facility] [place] [facility] [address] [id number] [place] [address]- 8306 Feb, [facility] [place] [facility] [address] [id number] [place] [address]- 9271 Feb, [facility] [place] [facility] [address] [id number] [place] [address]- 6181 Jan, [facility] [place] [facility] [address] [id number] [place] [address]- 0168 Jan, [facility] [place] [facility] [address] [id number] [place] [address]- 2455 Jan, [facility] [place] [facility] [address] [id number] [place] [address]- 2912 Jan, [facility] [place] [facility] [address] [id number] [place] [address]- 2766 Jan, [facility] [place] [facility] [address] [id number] [place] [address]- 9796 Jan, [facility] [place] [facility] [address] [id number] [place] [address]- 6476 Jan, [facility] [place] [facility] [address] [id number] [place] [address]- 7082 Jan, [facility] [place] [facility] [address] [id number] [place] [address]- 3941 Jan, [facility] [place] [facility] [address] [id number] [place] [address]- 4745 Jan, [facility] [place] [facility] [address] [id number] [place] [address]- 0153 Nov, [facility] [place] [facility] [address] [id number] [place] [address]- 3660 Nov, [facility] [place] [facility] [address] [id number] [place] [address]- 5502 Nov, [facility] [place] [facility] [address] [id number] [place] [address]- 0327 Oct, [facility] [place] [facility] [address] [id number] [place] [address]- 4517 Oct, [facility] [place] [facility] [address] [id number] [place] [address]- 8933 Oct, [facility] [place] [facility] [address] [id number] [place] [address]- 6589 Oct, [facility] [place] [facility] [address] [id number] [place] [address]- 1746 Oct, [facility] [place] [facility] [address] [id number] [place] [address]- 7956 Oct, [facility] [place] [facility] [address] [id number] [place] [address]- 3082 Oct, [facility] [place] [facility] [address] [id number] [place] [address]- 3167 Oct, [facility] [place] [facility] [address] [id number] [place] [address]- 1116 Oct, [facility] [place] [facility] [address] [id number] [place] [address]- 7101 Sep, [facility] [place] [facility] [address] [id number] [place] [address]- 7310 Sep, [facility] [place] [facility] [address] [id number] [place] [address]- 3900 Sep, [facility] [place] [facility] [address] [id number] [place] [address]- 8868 Sep, [facility] [place] [facility] [address] [id number] [place] [address]- 2492 Sep, [facility] [place] [facility] [address] [id number] [place] [address]- 9737 Sep, [facility] [place] [facility] [address] [id number] [place] [address]- 3654 Sep, [facility] [place] [facility] [address] [id number] [place] [address]- 3322 Sep, [facility] [place] [facility] [address] [id number] [place] [address]- 4266 Sep, [facility] [place] [facility] [address] [id number] [place] [address]- 8293 August, [facility] [address] [id number] [place] [address]- 6806 August, [facility] [place] [facility] [address] [id number] [place] [address]- 0341 August, [facility] [place] [facility] [address] [id number] [place] [address]- 4137 August, [facility] [place] [facility] [address] [id number] [place] [address]- 5642 August, [facility] [place] [facility] [address] [id number] [place] [address]- 4568 August, [facility] [place] [facility] [address] [id number] [place] [address]- 6262 Jul, [facility] [place] [facility] [address] [id number] [place] [address]- 3906 Jul, [facility] [place] [facility] [address] [id number] [place] [address]- 1761 Jul, [facility] [place] [facility] [address] [id number] [place] [address]- 2256 Jul, [facility] [place] [facility] [address] [id number] [place] [address]- 0729 Jul, [facility] [place] [facility] [address] [id number] [place] [address]- 0930 Jul, [facility] [place] [facility] [address] [id number] [place] [address]- 5584 Jun, [facility] [place] [facility] [address] [id number] [place] [address]- 0061 Jun, [facility] [place] [facility] [address] [id number] [place] [address]- 0654 May, [facility] [place] [facility] [address] [id number] [place] [address]- 3443 May, [facility] [place] [facility] [address] [id number] [place] [address]- 4511 10 May, 2013 [facility] [place] [facility] [address] [id number] [place] [address]- 6514 10 May, 2013 [facility] [place] [facility] [address] [id number] [place] [address] Apr, [facility] [place] [facility] [address] [id number] [place] [address] Apr, [facility] [place] [facility] [address] [id number] [place] [address] 18 Mar, 2013 [facility] [place] [facility] [address] [id number] [place] [address] 18 Mar, 2013 [facility] [place] [facility] [address] [id number] [place] [address] Mar, [facility] [place] [facility] [address] [id number] [place] [address] Mar, [facility] [place] [facility] [address] [id number] [place] [address] Mar, [facility] [place] [facility] [address] [id number] [place] [address] Mar, [facility] [place] [facility] [address] [id number] [place] [address] Feb, [facility] [place] [facility] [address] [id number] [place] [address] Feb, [facility] [place] [facility] [address] [id number] [place] [address] 14 Feb, 2013 [facility] [place] [facility] [address] [id number] [place] [address] 14 Feb, 2013 [facility] [place] [facility] [address] [id number] [place] [address] 05 Feb, 2013 [facility] [place] [facility] [address] [id number] [place] [address] Feb, [facility] [place] [facility] [address] [id number] [place] [address] Jan, [facility] [place] [facility] [address] [id number] [place] [address] Jan, [facility] [place] [facility] [address] [id number] [place] [address] Jan, [facility] [place] [facility] [address] [id number] [place] [address] Jan, [facility] [place] [facility] [address] [id number] [place] [address] Jan, [facility] [place] [facility] [address] [id number] [place] [address] Jan, [facility] [place] [facility] [address] [id number] [place] [address] Dec, [facility] [place] [facility] [address] [id number] [place] [address] Dec, [facility] [place] [facility] [address] [id number] [place] [address] Nov, [facility] [place] [facility] [address] [id number] [place] [address] Nov, [facility] [place] [facility] [address] [id number] [place] [address] Oct, [facility] [place] [facility] [address] [id number] [place] [address] Oct, [facility] [place] [facility] [address] [id number] [place] [address] Oct, [facility] [place] [facility] [address] [id number] [place] [address] Oct, [facility] [place] [facility] [address] [id number] [place] [address] Oct, [facility] [place] [facility] [address] [id number] [place] [address] Oct, [facility] [place] [address] [id number] [place] [address] Sep, [facility] [address] [id number] [place] [address] Sep, [facility] [address] [id number] [place] [address] Sep, [facility] [address] [id number] [place] [address] Sep, [facility] [address] [id number] [place] [address] August, [facility] [address] [id number] [place] [address] August, [facility] [address] [id number] [place] [address] August, [facility] [address] [id number] [place] [address] August, [facility] [place] [address] [id number] [place] [address] August, [facility] [address] [id number] [place] [address] Jul, [facility] [address] [id number] [place] [address] Jul, [facility] [address] [id number] [place] [address] 15 Jul, 2012 [facility] [address] [id number] [place] [address] Jul, [facility] [address] [id number] [place] [address] Jul, [facility] [address] [id number] [place] [address] Jul, [facility] [address] [id number] [place] [address] Jul, [facility] [address] [id number] [place] [address] Jul, [facility] [address] [id number] [place] [address] 2546 Jul, [facility] [address] [id number] [place] [address] Jul, [facility] [address] [id number] [id number] Jun, [facility] [address] [id number] [place] [address] Jun, [facility] [address] [id number] [place] [address] 8316 Jun, [facility] [address] [id number] [place] [address] 25[address] Jun, [facility] [address] [id number] [place] [address] 2766 Jun, [facility] [address] [id number] [place] [address] May, [facility] [address] [id number] [place] [address] 7[address] May, [facility] [address] [id number] [place] [address] May, [facility] [address] [id number] [place] [address]16 Apr, [facility] [address] [id number] [place] [address] 8166 Apr, [facility] [address] [id number] [place] [address] 6836 Apr, [facility] [address] [id number] [place] [address] Apr, [facility] [place] [facility] [address] [id number] [place] [address] 8[address] Apr, [facility] [place] [facility] [address] [id number] [place] [address] 8695 Apr, [facility] [place] [facility] [address] [id number] [place] [address] 4928 Mar, [facility] [place] [facility] [address] [id number] [place] [address] 3[address] Mar, [facility] [place] [facility] [address] [id number] [place] [address] 2135 Mar, [facility] [place] [facility] [address] [id number] [place] [address] 9823 Mar, [facility] [place] [facility] [address] [id number] [place] [address]- 5408 Feb, [facility] [place] [facility] [address] [id number] [place] [address] 4683 Feb, [facility] [place] [facility] [address] [id number] [place] [address] 4806 Feb, [facility] [place] [facility] [address] [id number] [place] [address] 4884 Feb, [facility] [place] [facility] [address] [id number] [place] [address] Feb, [facility] [place] [facility] [address] [id number] [place] [address] 8[address] Feb, [facility] [place] [facility] [address] [id number] [place] [address] 1305 Feb, [facility] [place] [facility] [address] [id number] [place] [address] 5660 Feb, [facility] [place] [facility] [address] [id number] [place] [address] 6889 Feb, [facility] [place] [facility] [address] [id number] [place] [address] 4531 Feb, [facility] [place] [facility] [address] [id number] [place] [address] 2696 Feb, [facility] [place] [facility] [address] [id number] [place] [address] 6613 Feb, [facility] [place] [facility] [address] [id number] [place] [address] 9530 Feb, [facility] [place] [facility] [address] [id number] [place] [address] 5104 Feb, [facility] [place] [facility] [address] [id number] [place] [address] 7147 Feb, [facility] [place] [facility] [address] [id number] [place] [address] Feb, [facility] [place] [facility] [address] [id number] [place] [address] 7329 Jan, [facility] [place] [facility] [address] [id number] [place] [address] 0490 Jan, [facility] [place] [facility] [address] [id number] [place] [address] 4865 Jan, [facility] [place] [facility] [address] [facility] [id number] [place] [address] 1411 Jan, [facility] [place] [facility] [address] [id number] [place] [address]- 2011 30 Jan, 2012 [facility] [place] [facility] [address] [id number] [place] [address]- 9827 Jan, [facility] [place] [facility] [address] [id number] [place] [address] Jan, [facility] [place] [facility] [address] [id number] [place] [address] Jan, [facility] [place] [facility] [address] [id number] [place] [id number] [address] 16 Jan, 2012 [facility] [place] [facility] [address] [id number] [place] [address]881 15 Jan, 2012 [facility] [place] [facility] [address] [id number] [place] [address]- 0726 15 Jan, 2012 [facility] [place] [facility] [address] [id number] [place] [address]- 2493 Jan, [facility] [place] [facility] [address] [id number] [place] [address] 6373 26 Sep, 2011 [facility] [place] [facility] [address] [id number] [place] [address] 8259 26 Sep, 2011 [facility] [place] [facility] [address] [id number] [place] [address]- 8303 24 Sep, 2011 [facility] [place] [facility] [address] [id number] [place] [address]- 4345 23 Sep, 2011 [facility] [place] [facility] [address] [id number] [place] [address] 7598 22 Sep, 2011 [facility] [place] [facility] [address] [id number] [place] [address] 2941 21 Sep, 2011 [facility] [place] [facility] [address] [id number] [place] [address] 9597 20 Dec, 2011 [facility] [place] [facility] [address] [id number] [place] [address] 2547 20 Sep, 2011 [facility] [place] [facility] [address] [id number] [place] [address] 2544 07 Sep, 2011 [facility] [place] [facility] [address] [id number] [place] [address] 2546 06 Sep, 2011 [facility] [place] [facility] [address] [id number] [place] [address] 2546 06 Sep, 2011 [facility] [place] [facility] [address] [id number] [place] [address]- 2544 05 Sep, 2011 [facility] [place] [facility] [address] [id number] [place] [address]- 8194 Nov, [facility] [place] [facility] [address] [id number] [place] [address]- 2636 Nov, [facility] [place] [facility] [address] [id number] [place] [address]- 2666 Nov, [facility] [place] [facility] [address] [id number] [place] [address]- 8226 Nov, [facility] [place] [facility] [address] [id number] [place] [address]- 5964 Nov, [facility] [place] [facility] [address] [id number] [place] [address]- 4562 Nov, [facility] [place] [facility] [address] [id number] [place] [address]- 6718 Nov, [facility] [place] [facility] [address] [id number] [place] [address]- 5391 Nov, [facility] [place] [facility] [address] [id number] [place] [address]- 1778 Oct, [facility] [place] [facility] [address] [id number] [place] [address]- 1066 Oct, [facility] [place] [facility] [address] [id number] [place] [address]- 1715 Oct, [facility] [place] [facility] [address] [id number] [place] [address]- 7377 Oct, [facility] [place] [facility] [address] [id number] [place] [address]- 2544 Oct, [facility] [place] [facility] [address] [id number] [place] [address]- 3522 16 Oct, 2011 [facility] [place] [facility] [address] [id number] [place] [address]- 9571 Oct, [facility] [place] [facility] [address] [id number] [place] [address]- 1111 Sep, [facility] [place] [facility] [address] [id number] [place] [address]- 7792 Sep, [facility] [place] [facility] [address] [id number] [place] [address]- 5679 August, [facility] [place] [facility] [address] [id number] [place] [address]- 5296 August, [facility] [place] [facility] [address] [id number] [place] [address]- 9435 August, [facility] [place] [facility] [address] [id number] [place] [address]- 4268 August, [facility] [place] [facility] [address] [id number] [place] [address]- 0872 Jul, [facility] [place] [facility] [address] [id number] [place] [address]- 9798 Jul, [facility] [place] [facility] [address] [id number] [place] [address]- 8336 Jul, [facility] [place] [facility] [address] [id number] [place] [address]- 2647 Jul, [facility] [place] [facility] [address] [id number] [place] [address]- [address]646 Jul, [facility] [place] [facility] [address] [id number] [place] [address]- 2265 Jul, [facility] [place] [facility] [address] [id number] [place] [address]- 0692 Jul, [facility] [place] [facility] [address] [id number] [place] [address]- 2584 Jul, [facility] [place] [facility] [address] [id number] [place] [address]- 2121 Jul, [facility] [place] [facility] [address] [id number] [place] [address]- 8461 Jun, [facility] [place] [facility] [address] [id number] [place] [address]- 9136 Jun, 2011 [facility] [place] [facility] [address] [id number] [place] [address]- 7261 15 Jun, 2011 [facility] [place] [facility] [address] [id number] [place] [address]- 9856 14 Jun, 2011 [facility] [place] [facility] [address] [id number] [place] [address]- 3986 12 Jun, 2011 [facility] [place] [facility] [address] [id number] [place] [address]- 4346 Jun, [facility] [place] [facility] [address] [id number] [place] [address]- 8104 Jun, [facility] [place] [facility] [address] [id number] [place] [address]- 0340 25 May, 2011 [facility] [place] [facility] [address] [id number] [place] [address]- 6813 24 May, 2011 [facility] [place] [facility] [address] [id number] [place] [address]- 0931 16 May, 2011 [facility] [place] [facility] [address] [id number] [place] [address]- 5133 May, [facility] [place] [facility] [address] [id number] [place] [address]- 5095 May, [facility] [place] [facility] [address] [id number] [place] [address]- 4325 Apr, [facility] [place] [facility] [address] [id number] [place] [address]- 9239 Apr, [facility] [place] [facility] [address] [id number] [place] [address]- 3824 Apr, [facility] [place] [facility] [address] [id number] [place] [address]- 0454 Apr, [facility] [place] [facility] [address] [id number] [place] [address]- 7124 Apr, [facility] [place] [facility] [address] [id number] [place] [address]- 6723 30 Mar, 2011 [facility] [place] [facility] [address] [id number] [place] [address]- 8239 Mar, [facility] [place] [facility] [address] [id number] [place] [address]- 4496 Mar, [facility] [place] [facility] [address] [id number] [place] [address]- 0556 Mar, [facility] [place] [facility] [address] [id number] [place] [address]- 9377 Mar, [facility] [place] [facility] [address] [id number] [place] [address]- 9787 Mar, [facility] [place] [facility] [address] [id number] [place] [address]- 2786 Mar, [facility] [place] [facility] [address] [id number] [place] [address]- 8997 Feb, [facility] [place] [facility] [address] [id number] [place] [address]- 6774 Feb, [facility] [place] [facility] [address] [id number] [place] [address]- 6525 Feb, [facility] [place] [facility] [address] [id number] [place] [address]- 2676 Feb, [facility] [place] [facility] [address] [id number] [place] [address]- 3288 Jan, [facility] [place] [facility] [address] [id number] [place] [address]- 8591 Jan, [facility] [place] [facility] [address] [id number] [place] [address]- 8520 Jan, [facility] [place] [facility] [address] [id number] [place] [address]- 9540 Jan, [facility] [place] [facility] [address] [id number] [place] [address] Nov, [facility] [place] [id number] [address] Mar, [facility] [place] [address] [facility] [id number] [place] [address]- 3207 Mar, [facility] [place] [id number] [place] [address]- 4201 Mar, [facility] [place] [address] [facility] [id number] [place] [address]- 6252 Mar, [facility] [place] [address] [facility] [id number] [place] [address]- 7166 Mar, [facility] [place] [id number] [place] [address]- 1317 Mar, [facility] [place] [id number] [address]- 0466 Feb, [facility] [place] [id number] [place] [address]- 1209 Feb, [facility] [place] [id number] [place] [address]- 7320 Jan, [facility] [place] [id number] [place] [address]- 5991 Jan, [facility] [place] [address] [id number] [address]- 9343 Jan, IMMUNIZATIONS No Known Immunizations SOCIAL HISTORY Never Assessed REASON FOR VISIT Controlled Med Refill PLAN OF CARE VITAL SIGNS MEDICATIONS Medication Instructions Dosage Frequency Start Date End Date Duration Status Lyrica 150 MG Orally 2 times a day 1 capsule 12h 28 days Active Oxybutynin Chloride ER 10 mg Orally Once a day 1 tablet 24h August, 30 day(s) Active RESULTS No Results PROCEDURES No Known [...] & 2007 Surgical History Bladder surgery [facility] 03/2016 Surgical History Neurotransmitter placed 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
[2018-05-29] MEDS ORDERED: ASPI-808 PO (08:42)
[2018-05-29] MEDS ORDERED: METO-370 PO (08:42)
--- OUTSIDE RECORDS SUMMARY | 2018-05-29 08:42 | XMS REPORT ---
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 Role Phone ISABEL MAE Unavailable PROBLEMS Type Condition ICD9-CM Code LUT55-NQ Code Onset Dates Condition Status SNOMED Code Problem Long-term use of high-risk medication Z79.899 Active 035664935 Problem Abnormal chest CT R93.8 Active 253580744 Problem Generalized anxiety disorder F41.1 Active 05044091 Problem Low back pain M54.5 Active 385231447 Problem Dysthymic disorder F34.1 Active 57142561 Problem Depressed F32.9 Active 60937097 Problem Coronary artery disease involving [place] coronary artery of [place] heart, angina presence unspecified I25.10 Active 0229899142283 Problem Hypothyroid E03.9 Active 28989537 Problem Insomnia G47.00 Active 583835408 Problem Vitamin D deficiency E55.9 Active 71602333 Problem Asthma J45.909 Active 347191575 Problem Chronic kidney disease, unspecified N18.9 Active 925504980 Problem Palpitations R00.2 Active 12090499 Problem Anemia in chronic kidney disease D63.1 Active 849659309302453 Problem Primary osteoarthritis of left knee M17.12 Active 620378941 Problem Bipolar disorder, current episode manic without psychotic features F31.10 Active 441527824 Problem Restless leg syndrome G25.81 Active 70797954 Problem Seasonal allergic rhinitis due to pollen J30.1 Active 88696040 Problem Functional diarrhea K59.1 Active 77204911 Problem Chronic kidney disease, stage 4 (severe) N18.4 Active 560793747 Problem Restless leg G25.81 Active 41141423 Problem Mood disorder F39 Active 28634935 Problem Degenerative tear of medial meniscus of left knee M23.204 Active 595828283 Problem Body mass index (BMI) of 40.0-44.9 in adult Z68.41 Active 949998987 Problem Stage 3 chronic kidney disease N18.3 Active 207159129 Problem Asthma with acute exacerbation in adult J45.901 Active 111659728 Problem Other seasonal allergic rhinitis J30.2 Active 557722854 Problem History of colon polyps Z86.010 Active 380213570 Problem History of anemia Z86.2 Active 388173657 Problem Fibromyalgia M79.7 Active 850654589 Problem Essential (primary) hypertension I10 Active 40289083 Problem Hypokalemia E87.6 Active 90705848 Problem Mixed stress and urge urinary incontinence N39.46 Active 203686971 ALLERGIES No Information ENCOUNTERS Encounter Location Date Diagnosis [facility] [address] [address] Nov, [place] [address] [address]- [address] Nov, [place] [address] [address]841- 8151 Nov, Fibromyalgia M79.7 [facility] [address] 84[address]- 5746 Nov, Complicated UTI (urinary tract infection) N39.0 [facility] [address] [address]- [address] Oct, [place] [address] 61[address]- 8889 Oct, Generalized anxiety disorder F41.1 and Major depressive disorder, recurrent episode with anxious distress F33.9 [facility] [address] 24[address]- 4759 Oct, [facility] [address] 98[address]- 7954 Oct, Fibromyalgia M79.7 [facility] [address] 19304- 0252 Sep, Restless leg syndrome G25.81 and Restless leg G25.81 [facility] [address] 9[address]91- 8125 Sep, [place] [address] [place] [id number] [place] [address] 51271- 2579 Sep, Seasonal allergic rhinitis due to pollen J30.1 ; Screening for breast cancer Z12.31 ; Chest pain at rest R07.9 ; Restless leg syndrome G25.81 ; Essential (primary) hypertension I10 and Depressed F32.9 [place] [address] [address]32- 9[address] August, Fibromyalgia M79.7 [place] [address] 20911- 5742 August, [place] [address] 8[address]- 2381 August, [place] [address] 99117- 9363 August, Abnormal chest CT R93.8 [place] [address] [address]- 2927 August, Generalized anxiety disorder F41.1 and Major depressive disorder, recurrent episode with anxious distress F33.9 [place] [address] [place] [id number] [place] [address] 71674- [address] August, [address] R93.8 [place] [address] [place] [id number] [place] [address] 79413- 6980 Jul, [place] [address] [place] [id number] [place] [address] 87232- 1636 Jul, Chronic kidney disease, stage 4 (severe) N18.4 [place] [address] 10619- 9047 Jul, [place] [address] [place] [id number] [place] [address] 35125- 7469 Jul, Restless leg G25.81 ; Mixed stress and urge urinary incontinence N39.46 and Fibromyalgia M79.7 [place] [address] [place] [id number] [place] [address] 55851- 0196 Jul, Chronic kidney disease, stage 4 (severe) N18.4 [facility] [address] [place] [id number] [place] [address] 36013- 9474 Jun, Orthostatic hypotension I95.1 ; Chronic kidney disease, stage 4 (severe) N18.4 ; Chest wall discomfort R07.89 and Body mass index (BMI) of 40.0-44.9 in adult Z68.41 [place] [address] [place] [id number] [place] [address] 02459- 0761 Jun, [place] [address] [place] [id number] [place] [address] 76045- 9888 Jun, Orthostatic hypotension I95.1 [place] [address] [place] [id number] [place] [address] 09879- 8402 Jun, [facility] [address] [place] [id number] [place] [address] 19103 -5731 Jun, Orthostatic hypotension I95.1 ; Dysuria R30.0 and Acute cystitis without hematuria N30.00 [place] [address] [place] [id number] [place] [address] 05022- 4059 Jun, [place] [address] [place] [id number] [place] [address] 44626- 1536 Jun, Chronic kidney disease, stage 4 (severe) N18.4 [place] [address] [place] [id number] [place] [address] 10580- 2353 Jun, Fibromyalgia M79.7 [facility] [address] [place] [id number] [place] [address] 73071- 3419 Jun, [place] [address] [place] [id number] [place] [address] 92864- 8507 Jun, [facility] [address] [place] [id number] [place] [address] 29260- [address] May, [address] R93.8 and Stage 3 chronic kidney disease N18.3 [facility] [address] [address] May, Chronic kidney disease, stage 4 (severe) N18.4 [facility] [address] [address]- 1785 May, Chronic kidney disease, stage 4 (severe) N18.4 [facility] [address] [place] [address] 37338- [address] May, [address] R93.8 [facility] [address] [place] [address] 36007- 4404 May, [facility] [address] [place] [id number] [place] [address] 09993- 9083 May, [facility] [address] [place] [id number] [place] [address] 16289- 9332 May, Generalized anxiety disorder F41.1 and Major depressive disorder, recurrent episode with anxious distress F33.9 [facility] [address] [address]- 6170 May, Mood disorder F39 [facility] [id number] [place] [address] 21287- 6945 Apr, [facility] [address] [place] [address] 01226- 9365 Apr, Infected skin lesion L08.9 and Muscle strain of right shoulder region, initial encounter S46.911A [facility] [address] [address] 1570 Apr, Generalized anxiety disorder F41.1 and Major depressive disorder, recurrent episode with anxious distress F33.9 [facility] [address] [address]- 7910 Apr, [facility] [address] [place] [address] 81459- 9649 Apr, Recent urinary tract infection Z87.440 and Hypothyroid E03.9 [place] [address] [place] [address] 52410- 5923 Apr, Generalized anxiety disorder F41.1 and Major depressive disorder, recurrent episode with anxious distress F33.9 [place] [address] [address]- 5385 Apr, Recent urinary tract infection Z87.440 [place] [address] [place] [id number] [place] [address] 78608- 0706 Mar, [facility] [address] [place] [address] 73002 -4423 Mar, Dysuria R30.0 ; Acute cystitis without hematuria N30.00 and BMI 40.0-44.9, adult Z68.41 [place] [address] [place] [id number] [place] [address] 65404- 9250 Mar, [place] [address] [place] [id number] [place] [address] 26821- 4910 Mar, [place] [address] [place] [id number] [place] [address] 77969- 8386 Mar, Generalized anxiety disorder F41.1 and Major depressive disorder, recurrent episode with anxious distress F33.9 [place] [address] [address]- 5665 Feb, Conjunctivitis, bacterial H10.9 [place] [address] [place] [address] 05867- 8609 Feb, [facility] [id number] [place] [address] 86800 -5656 Feb, Conjunctivitis, bacterial H10.9 [place] [address] [place] [address] 89905- 2438 Feb, [facility] [address] [place] [address] 63718 -3822 Feb, Dysuria R30.0 ; Acute cystitis N30.00 and BMI 40.0-44.9, adult Z68.41 [place] [address] [address]- 6502 Feb, [place] [address] [place] [id number] [place] [address] 32498- 1202 Feb, Generalized anxiety disorder F41.1 and Major depressive disorder, recurrent episode with anxious distress F33.9 [place] [address] 14983- 1218 Feb, Mood disorder F39 and BMI 40.0-44.9, adult Z68.41 [place] [address] 78532- 6205 Jan, [place] [address] 53305- 6884 Jan, [place] [address] 32915- 1853 Jan, Hypothyroid E03.9 [place] [address] [place] [id number] [place] [address] 31086- 0166 Jan, [place] [address] [place] [id number] [place] [address] 42269- 7410 Jan, Chronic kidney disease, unspecified N18.9 ; Hypokalemia E87.6 ; Essential (primary) hypertension I10 ; Fibromyalgia M79.7 ; Coronary artery disease involving [place] coronary artery of [place] heart, angina presence unspecified I25.10 ; Hypothyroid E03.9 and Encounter for immunization Z23 [place] [address] [place] [id number] [place] [address] 16851- 0469 Jan, Hypothyroid E03.9 [place] [address] 65956- 9417 Jan, [place] [address] [place] [id number] [place] [address] 37064- 8680 28 Sep, 2017 Vitamin D deficiency E55.9 [facility] [address] [address] 2542 28 Sep, 2017 Primary osteoarthritis of left knee M17.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 [facility] [address] [address] 2546 19 Dec, 2016 Fibromyalgia M79.7 [facility] [address] [place] [id number] [place] [address] 31775 2546 18 Sep, 2017 Mood disorder F39 [place] [address] [place] [address] 08469 2546 13 Dec, 2016 [place] [address] [place] [address] 06908 2546 13 Dec, 2016 Generalized anxiety disorder F41.1 and Major depressive disorder, recurrent episode with anxious distress F33.9 [place] [address] [place] [address] 91023 2546 11 Dec, 2016 [place] [id number] [place] [address] 87063 2546 08 Dec, 2016 Streptococcal meningitis G00.2 [place] [address] [place] [address] 70815 2546 07 Dec, 2016 Streptococcal meningitis G00.2 [place] [address] [address] 2546 07 Dec, 2016 [facility] [address] [place] [address] 74108 2546 06 Dec, 2016 [facility] [address] [address] 2546 06 Dec, 2016 Streptococcal meningitis G00.2 [facility] [address] [address] 2546 06 Dec, 2016 Major depressive disorder, recurrent episode with anxious distress F33.9 [facility] [address] [place] [address] 22316- 7060 Nov, Fever, unspecified fever cause R50.9 [facility] [address] [place] [id number] [place] [address] 10520- 8681 Nov, [facility] [address] [place] [id number] [place] [address] 01809- 2417 Nov, Hypothyroid E03.9 [facility] [address] [place] [id number] [place] [address] 80578- 9508 Nov, Generalized anxiety disorder F41.1 and Major depressive disorder, recurrent episode with anxious distress F33.9 [facility] [address] [place] [id number] [place] [address] 23652- 0582 Nov, [facility] [address] [id number] Oct, Dental examination Z01.20 [facility] [address] [place] [id number] [place] [address] 74899- 2639 Oct, Generalized anxiety disorder F41.1 and Major depressive disorder, recurrent episode with anxious distress F33.9 [facility] [address] [place] [id number] [place] [address] 90890- 6707 Oct, Chronic kidney disease, stage 4 (severe) N18.4 [facility] [address] [place] [id number] [place] [address] 88679- 1849 Oct, [facility] [address] [place] [id number] [place] [address] 42553- 6081 Oct, Fibromyalgia M79.7 [facility] [address] [place] [id number] [place] [address] 66402- 2363 Oct, [facility] [address] 28679- 9378 Oct, Generalized anxiety disorder F41.1 ; Major depressive disorder, recurrent episode with anxious distress F33.9 and Bipolar disorder, current episode manic without psychotic features F31.10 [facility] [address] [place] [id number] [place] [address] 71761- 3086 Sep, [place] [address] [address]- 4705 Sep, [place] [address] [place] [id number] [place] [address] 41847- 8508 Sep, Vitamin D deficiency E55.9 [place] [address] [place] [address] 35175- 0528 Sep, Vitamin D deficiency E55.9 [place] [address] [place] [address] 67405- 7722 Sep, [place] [address] [place] [id number] [place] [address] 66109- 6517 Sep, Chronic kidney disease, stage 4 (severe) N18.4 ; Hypothyroid E03.9 ; Restless leg G25.81 ; Fibromyalgia M79.7 ; Essential ( primary) hypertension I10 ; Vitamin D deficiency E55.9 ; Dyspepsia R10.13 ; Anemia in chronic kidney disease D63.1 ; Chronic kidney disease, unspecified N18.9 ; Coronary artery disease involving [place] coronary artery of [place] heart , angina presence unspecified I25.10 ; Screening breast examination Z12.39 and Low back pain M54.5 [place] [address] [place] [address] 72175- 6791 August, Generalized anxiety disorder F41.1 and Major depressive disorder, recurrent episode with anxious distress F33.9 [place] [address] [address]- 6742 August, Generalized anxiety disorder F41.1 and Major depressive disorder, recurrent episode with anxious distress F33.9 [place] [address] [place] [address] 65000- 0646 August, Fibromyalgia M79.7 [place] [address] [place] [address] 42241- 2154 Jul, Generalized anxiety disorder F41.1 and Major depressive disorder, recurrent episode with anxious distress F33.9 [place] [address] [place] [id number] [place] [address] 28595- 0408 Jul, Fibromyalgia M79.7 [place] [address] 24472- 1204 Jul, Generalized anxiety disorder F41.1 [place] [address] [place] [id number] [place] [address] 68588- 1867 May, [place] [address] 98863- 4296 May, Hypothyroid E03.9 [place] [address] 43438- 3646 May, Chronic kidney disease, stage 4 (severe) N18.4 ; Hypothyroid E03.9 ; Restless leg G25.81 ; Fibromyalgia M79.7 ; Essential ( primary) hypertension I10 ; Vitamin D deficiency E55.9 ; Dyspepsia R10.13 ; Acute non-recurrent maxillary sinusitis J01.00 ; Anemia in chronic kidney disease D63.1 ; Chronic kidney disease, unspecified N18.9 and Coronary artery disease involving [place] coronary artery of [place] heart, angina presence unspecified I25.10 [place] [address] [place] [id number] [place] [address] 33310- 0807 May, Vitamin D deficiency, unspecified E55.9 [place] [address] [place] [id number] [place] [address] 80035- 3427 May, Generalized anxiety disorder F41.1 and Major depressive disorder, recurrent episode with anxious distress F33.9 [place] [address] [place] [id number] [place] [address] 58288- 8310 Apr, Pain in right knee M25.561 and Pain in left knee M25.562 [place] [address] [place] [id number] [place] [address] 82090- 4599 Apr, [place] [address] [place] [id number] [place] [address] 30220- 7447 Apr, [place] [address] [address]- 8843 Apr, [place] [address] [place] [id number] [place] [address] 02759- 3691 Mar, Generalized anxiety disorder F41.1 and Major depressive disorder, recurrent episode with anxious distress F33.9 [place] [address] [place] [id number] [place] [address] 04101- 3908 Mar, Generalized anxiety disorder F41.1 and Major depressive disorder, recurrent episode with anxious distress F33.9 [place] [address] [place] [id number] [place] [address] 89319- 3431 Mar, [place] [address] [place] [id number] [place] [address] 30012- 4225 Mar, [place] [address] [place] [id number] [place] [address] 81001- 4772 Mar, [place] [address] [place] [id number] [place] [address] 64686- 1954 Mar, Asthma J45.909 and Fibromyalgia M79.7 [place] [address] [place] [id number] [place] [address] 07179- 6007 Mar, Chronic kidney disease, stage 4 (severe) N18.4 ; Vitamin D deficiency E55.9 and Essential (primary) hypertension I10 [place] [address] [place] [id number] [place] [address] 26978- 6642 Feb, [place] [address] [place] [id number] [place] [address] 26954- 5242 Feb, Dysuria R30.0 ; Mixed stress and urge urinary incontinence N39.46 ; Fibromyalgia M79.7 and Chronic kidney disease, stage IV (severe) N18.4 [place] [address] [place] [id number] [place] [address] 82889- 4010 Feb, Chronic kidney disease, stage 4 (severe) N18.4 [place] [address] [place] [id number] [place] [address] 56936- 4796 Feb, Chronic kidney disease, stage 4 (severe) N18.4 [place] [address] [place] [address] 19257- 9845 Feb, [place] [address] [place] [id number] [place] [address] 71574- 5855 Feb, Vitamin D deficiency, unspecified E55.9 [place] [address] [place] [id number] [place] [address] 11993- 2053 Jan, [place] [address] [place] [id number] [place] [address] 92671- 9865 Jan, [place] [address] [place] [id number] [place] [address] 97374- 3966 Dec, [place] [address] [place] [id number] [place] [address] 80395- 7553 Dec, Chronic kidney disease, stage 4 (severe) N18.4 [place] [address] [place] [id number] [place] [address] 02251- 0500 Dec, Dysthymic disorder F34.1 and Generalized anxiety disorder F41.1 [place] [address] [place] [id number] [place] [address] 87191- 3997 Dec, [place] [address] [place] [id number] [place] [address] 42531- 7185 Dec, [place] [address] [place] [id number] [place] [address] 47819- 5656 Dec, Dysthymic disorder F34.1 and Generalized anxiety disorder F41.1 [place] [address] [place] [id number] [place] [address] 05888- 0381 Dec, Dysuria R30.0 ; Chronic kidney disease, stage 4 (severe) N18.4 ; Hypertension I10 ; Dyspepsia R10.13 ; Yeast dermatitis B37.2 ; Palpitations R00.2 ; Hypothyroid E03.9 ; Functional diarrhea K59.1 and Other seasonal allergic rhinitis J30.2 [facility] [address] [place] [id number] [place] [address] 03750 -5487 Dec, [facility] [address] 25069 -1480 Nov, Dysuria R30.0 and Stress incontinence N39.3 [facility] [address] 23101- 1484 Nov, [facility] [address] 05243- 1123 Nov, [place] [address] 95101- 4126 Nov, Osteoarthritis of knees, bilateral M17.0 [place] [address] [place] [id number] [place] [address] 02307- 8403 Nov, Dysthymic disorder F34.1 and Generalized anxiety disorder F41.1 [place] [address] [place] [id number] [place] [address] 00003- 5850 Nov, [place] [address] 30821- 7312 Nov, [place] [address] [place] [id number] [place] [address] 83762- 4216 Nov, Urgency of urination R39.15 [place] [address] [place] [id number] [place] [address] 70023- 5098 Nov, [place] [address] [place] [id number] [place] [address] 57861- 8377 Nov, Chronic kidney disease, stage 4 (severe) N18.4 [place] [address] 09492- 2928 Oct, Hypertension I10 ; Coronary artery disease involving [place] coronary artery of [place] heart, angina presence unspecified I25.10 ; Palpitations R00.2 ; Hypothyroid E03.9 ; Right foot pain M79.671 ; Functional diarrhea K59.1 and Other seasonal allergic rhinitis J30.2 [facility] [address] [place] [address] 25733- 5695 Oct, Dysthymic disorder F34.1 and Generalized anxiety disorder F41.1 [facility] [address] [place] [address] [id number] [place] [address] 48941- 3789 Sep, [facility] [address] [place] [id number] [place] [address] 47019- 5504 Sep, [facility] [id number] [place] [address] [phone] [phone] Sep, [facility] [id number] [place] [address] [phone]- 4686 Sep, [facility] [id number] [place] [address] 17510- [phone] Sep, [facility] [id number] [place] [address] 04671- 1793 Sep, Dysthymic disorder F34.1 and Generalized anxiety disorder F41.1 [facility] [id number] [place] [address] 11726- 4958 Sep, Asthma with acute exacerbation in adult J45.901 ; Dysuria R30.0 ; Chronic kidney disease, stage 4 (severe) N18.4 and History of anemia Z86.2 [facility] [id number] [place] [address] 04622- 4657 Sep, Generalized anxiety disorder F41.1 and Dysthymic disorder F34.1 [place] [id number] [place] [address] 57018- 6043 August, Screening breast examination Z12.39 and Acute recurrent maxillary sinusitis J01.01 [facility] [id number] [place] [address] [id number]- [phone] August, Osteoarthritis of knees, bilateral M17.0 [place] [id number] [place] [address] 32635- 9144 August, Chronic kidney disease, stage 4 (severe) N18.4 ; Acute non- recurrent maxillary sinusitis J01.00 ; Urinary problem R39.89 ; Bowel habit changes R19.4 ; Functional diarrhea K59.1 and History of colon polyps Z86.010 [facility] [id number] [place] [address] 41658- 5030 29 Jul, 2015 Dysthymic disorder F34.1 and Generalized anxiety disorder F41.1 [place] [id number] [place] [address] 40002- 6729 Jul, [facility] [id number] [place] [address] 30676- 7481 Jul, Dysthymic disorder F34.1 ; Generalized anxiety disorder F41.1 and penitentiary use of drug Z79.899 [facility] [place] [id number] [place] [address] 88076- 9962 Jul, [facility] [place] [id number] [place] [address] 15553- 3457 Jun, [facility] [place] [id number] [place] [address] 79384- 8018 Jun, [facility] [place] [id number] [place] [address] 07806- 7836 May, [facility] [place] [id number] [place] [address] 20401- 2530 May, Dysthymic disorder F34.1 and Generalized anxiety disorder F41.1 [facility] [id number] [place] [address] 05578- 8791 Apr, Kidney disease N28.9 [facility] [place] [id number] [place] [address] 34623- 0996 Apr, Dysthymic disorder F34.1 and Generalized anxiety disorder F41.1 [facility] [id number] [place] [address] 28504- 4233 Apr, Chronic kidney disease, stage 4 (severe) N18.4 [facility] [id number] [place] [address] 22983- 0112 Apr, Generalized anxiety disorder F41.1 ; Major depression, recurrent F33.9 and Sleep disturbance G47.9 [facility] [place] [id number] [place] [address] 39919- 0173 Mar, Generalized anxiety disorder F41.1 and Dysthymic disorder F34.1 [facility] [address] 27473- 5694 Mar, Generalized anxiety disorder F41.1 ; Dysthymic disorder F34.1 and Insomnia G47.00 [place] [address] 34029- 0992 Mar, [place] [address] 71479- 1318 Mar, [facility] [address] 41746- 9872 Mar, Osteoarthritis of knees, bilateral M17.0 [place] [address] 43733- 7113 Mar, Hypertension I10 ; Hypothyroid E03.9 ; Dysthymic disorder F34.1 ; Chronic kidney disease, stage 4 (severe) N18.4 and Nausea & vomiting R11.2 [facility] [place] [id number] [place] [address] 27047- 6193 Mar, Generalized anxiety disorder F41.1 ; Dysthymic disorder F34.1 and Insomnia G47.00 [facility] [address] 97632- 8330 Mar, Dehydration E86.0 ; Chronic kidney disease, stage 4 (severe ) N18.4 and Nausea & vomiting R11.2 [facility] [id number] [place] [address] 12366 -8834 Mar, Gastroenteritis K52.9 [place] [id number] [place] [address] 79636- 2723 Mar, [place] [id number] [place] [address] 64336- 4305 Mar, [place] [id number] [place] [address] 36286- 1449 Feb, Dysthymic disorder F34.1 and Generalized anxiety disorder F41.[address] 71246- 6811 Jan, UTI (urinary tract infection) N39.0 ; Asthma J45.909 ; Coronary artery disease involving [place] coronary artery of [place] heart, angina presence unspecified I25.10 ; Hypertension I10 ; Hypothyroid E03.9 ; Vitamin D deficiency E55.9 ; Insomnia G47.00 ; Palpitations R00.2 ; Depressed F32.9 ; Restless leg G25.81 and Anxiety F41.9 [place] [id number] [place] [address] 84969- 8300 Jan, Dysthymic disorder F34.1 and Generalized anxiety disorder F41.1 [place] [id number] [place] [address] 26237- 2249 Jan, [place] [id number] [place] [address] 45372- 2489 Dec, [place] [id number] [place] [address] 47223- 3020 Dec, Alkalosis 276.3 ; Chronic kidney disease, 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.4 ; Hyperpotassemia 276.7 ; Secondary hyperparathyroidism, renal 588.81 ; Proteinuria 791.0 ; Unspecified vitamin D deficiency 268.9 ; Anemia in chronic kidney disease 285.21 ; Other and unspecified hyperlipidemia 272.4 ; Hypertension, essential, benign 401.1 and Chronic kidney disease (CKD), stage III (moderate) 585.3 [place] [id number] [place] [address] 07613- 4046 Dec, [place] [id number] [place] [address] 16780- 5903 Dec, Depressive disorder, not elsewhere classified 311 and Generalized anxiety disorder 300.02 [place] [id number] [place] [address] 25033- 2548 Dec, [facility] [place] [id number] [place] [address] 32727- 6057 Dec, [facility] [place] [address] 42881- 6101 Nov, Depressive disorder, not elsewhere classified 311 and Generalized anxiety disorder 300.[address] 78349- 5728 Nov, Arthritis of both knees 716.[address] 55479- 1924 Nov, PAF (paroxysmal atrial fibrillation) 427.31 ; CAD (coronary artery disease) 414.00 ; Chest pain 786.50 and Chronic kidney disease (CKD) stage G4/A1, severely decreased glomerular filtration rate (GFR) between 15-29 mL/min/1.73 square meter and albuminuria creatinine ratio less than 30 mg/g 585.4 [place] [id number] [place] [address] 34821- 4222 Oct, Coronary atherosclerosis of unspecified type of vessel, [place] or graft 414.00 ; Chronic kidney disease, 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.4 ; Hypertension 401.9 and Edema 782.3 [place] [id number] [place] [address] 29490- 7045 Oct, Depressive disorder, not elsewhere classified 311 and Generalized anxiety disorder 300.02 [place] [id number] [place] [address] 43500- 7681 Oct, Depressive disorder, not elsewhere classified 311 and Generalized anxiety disorder 300.02 [place] [id number] [place] [address] 38585- 0178 Oct, [place] [address] [address]- 2952 Oct, [facility] [id number] [place] [address] 29333- 2903 Sep, [facility] [id number] [place] [address] 86492- 9305 Sep, Chronic kidney disease, 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.4 [facility] [id number] [place] [address] 12220- 0956 Sep, [facility] [id number] [place] [address] 53336- 7648 Sep, Coronary atherosclerosis of unspecified type of vessel, [place] or graft 414.00 ; Hypertension 401.9 ; Edema 782.3 and Hypothyroidism 244.9 [place] [id number] [place] [address] 05470- 3248 Sep, Coronary atherosclerosis of unspecified type of vessel, [place] or graft 414.00 ; Hypertension 401.9 ; Fibromyalgia 729.1 ; Edema 782.3 ; Hypothyroidism 244.9 and Anemia 285.9 [facility] [id number] [place] [address] 50409- 3628 Sep, Anxiety disorder, unspecified 300.00 and Depressive disorder , not elsewhere classified 311 [facility] [id number] [place] [address] 48038- 6490 Sep, [facility] [id number] [place] [address] 08747- 4375 August, Generalized anxiety disorder 300.02 [facility] [id number] [place] [address] 46710- 9409 August, Closed fracture of lateral malleolus 824.2 [facility] [id number] [place] [address] 26176- 1530 Jul, [facility] [id number] [place] [address] 99372- 0085 Jul, [facility] [place] [facility] [address] [id number] [place] [address]- 4724 Jun, [facility] [place] [facility] [address] [id number] [place] [address]- 0365 Jun, [facility] [place] [facility] [address] [id number] [place] 0525 Jun, [facility] [place] [facility] [address] [id number] [place] [address]- 0064 Jun, [facility] [place] [facility] [address] [id number] [place] [address]- 3981 Jun, [facility] [place] [facility] [address] [id number] [place] [address]- 7052 Jun, [facility] [place] [facility] [address] [facility] [id number] [place] [address]- 2050 May, [facility] [place] [facility] [address] [id number] [place] [address]- 0314 May, 2014 [facility] [place] [facility] [address] [id number] [place] [address]- 2194 18 May, 2014 [facility] [place] [facility] [address] [facility] [id number] [place] [address]- 2990 18 May, 2014 [facility] [place] [facility] [address] [id number] [place] [address]- 9807 16 May, 2014 [facility] [place] [facility] [address] [id number] [place] [address]- 9829 16 May, 2014 [facility] [place] [facility] [address] [id number] [place] [address]- 4267 13 May, 2014 [facility] [place] [facility] [address] [id number] [place] [address]- 9765 13 May, 2014 [facility] [place] [facility] [address] [facility] [id number] [place] [address]- 1506 10 May, 2014 [facility] [place] [facility] [address] [id number] [place] [address]- 4757 May, [facility] [address] [id number] [place] [address]- 1937 Apr, [facility] [place] [facility] [address] [id number] [place] [address]- 1569 Apr, [facility] [address] [id number] [place] [address]- 8473 Mar, [facility] [place] [facility] [address] [id number] [place] [address]- 1084 Mar, [facility] [address] [id number] [place] [address]- 8799 Mar, [facility] [place] [facility] [address] [id number] [place] [address]- 2708 Mar, [facility] [place] [facility] [address] [id number] [place] [address]- 2030 Mar, [facility] [address] [id number] [place] [address]- 1547 Mar, [facility] [place] [facility] [address] [id number] [place] [address]- 5771 Mar, [facility] [place] [facility] [address] [id number] [place] [address]- 3250 Feb, [facility] [place] [facility] [address] [id number] [place] [address]- 3328 Feb, [facility] [place] [facility] [address] [id number] [place] [address]- 8521 Feb, [facility] [place] [facility] [address] [id number] [place] [address]- 1636 Jan, [facility] [place] [facility] [address] [id number] [place] [address]- 2848 Jan, [facility] [place] [facility] [address] [id number] [place] [address]- 3966 Jan, [facility] [place] [facility] [address] [id number] [place] [address]- 7374 Jan, [facility] [place] [facility] [address] [id number] [place] [address]- 7366 Jan, [facility] [place] [facility] [address] [id number] [place] 1310 Jan, [facility] [place] [facility] [address] [id number] [place] [address]- 7595 Jan, [facility] [place] [facility] [address] [id number] [place] [address]- 2239 Jan, [facility] [place] [facility] [address] [id number] [place] [address]- 2125 Jan, [facility] [place] [facility] [address] [id number] [place] [address]- 2876 Jan, [facility] [place] [facility] [address] [id number] [place] [address]- 3385 Nov, [facility] [place] [facility] [address] [id number] [place] [address]- 3773 Nov, [facility] [place] [facility] [address] [id number] [place] [address]- 6777 Nov, [facility] [place] [facility] [address] [id number] [place] [address]- 5558 Oct, [facility] [place] [facility] [address] [id number] [place] [address]- 8333 Oct, [facility] [place] [facility] [address] [id number] [place] [address]- 6256 Oct, [facility] [place] [facility] [address] [id number] [place] [address]- 0815 Oct, [facility] [place] [facility] [address] [id number] [place] [address]- 4027 Oct, [facility] [place] [facility] [address] [id number] [place] [address]- 6727 Oct, [facility] [place] [facility] [address] [id number] [place] [address]- 4133 Oct, [facility] [place] [facility] [address] [id number] [place] [address]- 1878 Oct, [facility] [place] [facility] [address] [id number] [place] [address]- 8347 Oct, [facility] [place] [facility] [address] [id number] [place] [address]- 0548 Sep, [facility] [place] [facility] [address] [id number] [place] [address]- 6603 Sep, [facility] [place] [facility] [address] [id number] [place] [address]- 1171 Sep, [facility] [place] [facility] [address] [id number] [place] [address]- 8848 Sep, [facility] [place] [facility] [address] [id number] [place] [address]- 8712 Sep, [facility] [place] [facility] [address] [id number] [place] [address]- 8151 Sep, [facility] [place] [facility] [address] [id number] [place] [address]- 0669 Sep, [facility] [place] [facility] [address] [id number] [place] [address]- 0698 Sep, [facility] [place] [facility] [address] [id number] [place] [address]- 4561 Sep, [facility] [place] [facility] [address] [id number] [place] [address]- 2281 August, [facility] [place] [facility] [address] [id number] [place] [address]- 4779 August, [facility] [place] [facility] [address] [id number] [place] [address]- 2003 August, [facility] [place] [facility] [address] [id number] [place] [address]- 9246 August, [facility] [place] [facility] [address] [id number] [place] [address]- 5995 August, [facility] [place] [facility] [address] [id number] [place] [address]- 8017 August, [facility] [place] [facility] [address] [id number] [place] [address]- 6774 Jul, [facility] [place] [facility] [address] [id number] [place] [address]- 1678 Jul, [facility] [place] [facility] [address] [id number] [place] [address]- 7365 Jul, [facility] [place] [facility] [address] [id number] [place] [address]- 1958 Jul, [facility] [place] [facility] [address] [id number] [place] [address]- 8372 Jul, [facility] [place] [facility] [address] [id number] [place] [address]- 7758 Jul, [facility] [place] [facility] [address] [id number] [place] [address]- 8774 Jun, [facility] [place] [facility] [address] [id number] [place] [address]- 5275 Jun, [facility] [place] [facility] [address] [id number] [place] [address]- 1817 May, [facility] [place] [facility] [address] [id number] [place] [address]- 3634 May, [facility] [place] [facility] [address] [id number] [place] [address]- 7029 May, [facility] [place] [facility] [address] [id number] [place] [address]- 1656 May, [facility] [place] [facility] [address] [id number] [place] [address]- 9679 Apr, [facility] [place] [facility] [address] [id number] [place] [address]- 9987 Apr, [facility] [place] [facility] [address] [id number] [place] [address]- 2088 Mar, [facility] [place] [facility] [address] [id number] [place] [address]- 9182 Mar, [facility] [place] [facility] [address] [id number] [place] [address]- 5424 Mar, [facility] [place] [facility] [address] [id number] [place] 9802 Mar, [facility] [place] [facility] [address] [id number] [place] [address]- 8154 Mar, [facility] [place] [facility] [address] [id number] [place] [address]- 5172 Mar, [facility] [place] [facility] [address] [id number] [address]- 4427 Feb, [facility] [place] [facility] [address] [id number] [place] [address]- 7611 Feb, [facility] [place] [facility] [address] [id number] [place] [address]- 3214 Feb, [facility] [place] [facility] [address] [id number], [place] [address]- 6316 Feb, [facility] [place] [facility] [address] [id number], [place] [address]- 3594 05 Feb, 2013 [facility] [place] [facility] [address] [id number] [place] [address]- 4518 Feb, [facility] [place] [facility] [address] [id number], [place] [address]- 2517 Jan, [facility] [place] [facility] [address] [id number], [place] [address]- 5576 Jan, [facility] [place] [facility] [address] [id number] [place] [address]- 8390 Jan, [facility] [address] [id number] [place] [address]- 6362 Jan, [facility] [place] [facility] [address] [id number] [place] [address]- 2573 Jan, [facility] [address] [id number] [place] [address]- 4574 Jan, [facility] [place] [facility] [address] [id number] [place] [address]- 7809 Dec, [facility] [address] [id number] [place] [address]- 3475 Dec, [facility] [place] [facility] [address] [id number] [place] [address]- 3136 Nov, [facility] [address] [id number] [place] [address]- 0725 Nov, [facility] [address] [id number] [place] [address]- 7438 Oct, [facility] [place] [facility] [address] [id number] [place] [address]- 1948 Oct, [facility] [address] [id number] [place] [address]- 7162 Oct, [facility] [place] [facility] [address] [id number] [place] [address]- 5898 Oct, [facility] [place] [facility] [address] [id number] [place] [address]- 2677 Oct, [facility] [place] [facility] [address] [id number] [place] [address]- 3966 Oct, [facility] [place] [facility] [address] [id number] [place] [address]- 3284 Sep, [facility] [place] [facility] [address] [id number] [place] [address]- 0229 Sep, [facility] [address] [id number] [place] [address]- 6457 Sep, [facility] [address] [id number] [place] [address]- 7415 Sep, [facility] [address] [id number] [place] [address]- 6973 August, [facility] [address] [id number] [place] [address]- 1062 August, [facility] [address] [id number] [place] [address]- 1402 August, [facility] [address] [id number] [place] [address]- 7905 August, [facility] [address] [id number] [place] [address]- 4469 August, [facility] [address] [id number] [place] [address]- 9046 Jul, [facility] [address] [id number] [place] [address]- 6978 Jul, [facility] [address] [id number] [place] [address]- 5798 Jul, [facility] [address] [id number] [place] [address]- 3739 Jul, [facility] [address] [id number], [place] [address] Jul, [facility] [address] [id number] [place] [address] Jul, [facility] [place] [facility] [address] [id number] [place] [address] Jul, [facility] [address] [id number] [place] [address] Jul, [facility] [address] [id number], [place] [address] Jul, [facility] [address] [id number] [place] [address] Jul, [facility] [address] [id number] [place] [id number] Jun, [facility] [address] [id number] [place] [address] Jun, [facility] [address] [id number] [place] [address] Jun, [facility] [address] [id number] [place] [address] Jun, [facility] [address] [id number] [place] [address] Jun, [facility] [address] [id number] [place] [address] May, [facility] [address] [id number], [place] [address] May, [facility] [address] [id number], [place] [address] May, [facility] [address] [id number] [place] [address] Apr, [facility] [address] [id number], [place] [address] Apr, [facility] [address] [id number], [place] [address] Apr, [facility] [address] [id number], [place] [address] Apr, [facility] [address] [id number], [place] [address] Apr, [facility] [address] [id number], [place] [address] Apr, [facility] [address] [id number] [place] [address] Mar, [facility] [address] [id number] [place] [address] Mar, [facility] [place] [facility] [address] [id number] [place] [address] Mar, [facility] [address] [id number] [place] [address] Mar, [facility] [place] [facility] [address] [id number] [place] [address] Feb, [facility] [address] [id number] [place] [address] Feb, [facility] [place] [facility] [address] [id number] [place] [address] Feb, [facility] [place] [facility] [address] [id number] [place] [address] Feb, [facility] [address] [id number] [place] [address] Feb, [facility] [place] [facility] [address] [id number] [place] [address] Feb, [facility] [address] [facility] [id number] [place] [address] Feb, [facility] [place] [facility] [address] [id number] [place] [address] Feb, [facility] [place] [facility] [address] [id number] [place] [address] Feb, [facility] [place] [facility] [address] [id number] [place] [address] Feb, [facility] [place] [facility] [address] [id number] [place] [address] Feb, [facility] [place] [facility] [address] [id number] [place] [address] Feb, [facility] [place] [facility] [address] [id number] [place] [address] Feb, [facility] [place] [facility] [address] [id number] [place] [address] Feb, [facility] [place] [facility] [address] [id number] [place] [address] Feb, [facility] [place] [facility] [address] [id number] [place] [address] Feb, [facility] [place] [facility] [address] [id number] [place] [address] Jan, [facility] [place] [facility] [address] [id number] [place] [address] Jan, [facility] [place] [facility] [address] [id number] [place] [address] Jan, [facility] [place] [facility] [address] [id number], [place] [address] Jan, [facility] [place] [facility] [address] [id number], [place] [address] 30 Jan, 2012 [facility] [place] [facility] [address] [facility] [id number], [place] [address] Jan, [facility] [place] [facility] [address] [id number], [place] [address] Jan, [facility] [place] [facility] [address] [id number], [place] [address] 16 Jan, 2012 [facility] [place] [facility] [address] [id number], [place] [address] 16 Jan, 2012 [facility] [place] [facility] [address] [id number], [place] [address]- [address] 15 Jan, 2012 [facility] [place] [facility] [address] [facility] [id number] [address] 15 Jan, 2012 [facility] [place] [facility] [address] [id number], [place] [address] Jan, [facility] [place] [facility] [address] [id number] [place] [address] 26 Sep, 2011 [facility] [place] [facility] [address] [id number] [place] [address]46 26 Sep, 2011 [facility] [place] [facility] [address] [id number] [place] [address] 24 Sep, 2011 [facility] [place] [facility] [address] [id number] [place] [address] 23 Sep, 2011 [facility] [place] [facility] [address] [id number] [place] [address], [place] [address] 3816 22 Sep, 2011 [facility] [place] [facility] [address] [id number] [place] [address] 1786 21 Sep, 2011 [facility] [address] [id number] [place] [address] 57[address] 20 Sep, 2011 [facility] [place] [facility] [address] [id number] [place] [address] 2549 20 Sep, 2011 [facility] [place] [facility] [address] [id number] [place] [address] 07 Sep, 2011 [facility] [place] [facility] [address] [id number] [place] [address] 9980 06 Sep, 2011 [facility] [place] [facility] [address] [id number] [place] [address] 2545 06 Sep, 2011 [facility] [place] [facility] [address] [id number], [place] [address] 05 Sep, 2011 [facility] [place] [facility] [address] [id number] [place] [address]- 1675 23 Nov, 2011 [facility] [place] [facility] [address] [id number] [place] [address]- 0424 17 Nov, 2011 [facility] [place] [facility] [address] [id number] [place] [address]- 1296 13 Nov, 2011 [facility] [place] [facility] [address] [id number] [place] [address] 44[address] Nov, [facility] [place] [facility] [address] [id number] [facility] [address] Nov, [facility] [place] [facility] [address] [id number] [place] [address] 2546 Nov, [facility] [place] [facility] [address] [id number] [place] [address]- 3966 Nov, [facility] [place] [facility] [address] [id number] [place] [address] 9128 Nov, [facility] [place] [facility] [address] [id number] [place] [address] 1494 Oct, [facility] [place] [facility] [address] [id number] [place] [address]- 5240 Oct, [facility] [place] [facility] [address] [id number] [place] [address]- 4[address] Oct, [facility] [place] [facility] [address] [id number] [place] [address]- 7004 Oct, [facility] [place] [facility] [address] [id number] [place] [address]- 0886 Oct, [facility] [place] [facility] [address] [id number] [place] [address]- 5270 Oct, [facility] [place] [facility] [address] [id number] [place] [address]- 0890 Oct, [facility] [place] [facility] [address] [id number] [place] [address]- 9885 Sep, [facility] [place] [facility] [address] [id number] [place] [address] Sep, [facility] [place] [facility] [address] [id number] [place] [address]- 6323 August, [facility] [place] [facility] [address] [id number] [place] [address]- [address] August, [facility] [address] [id number] [place] [address] 2910 August, [facility] [place] [facility] [address] [id number] [place] [address]- 0524 August, [facility] [place] [facility] [address] [id number] [place] [address]- 7495 Jul, [facility] [place] [facility] [address] [id number] [place] [address]- 5641 Jul, [facility] [place] [facility] [address] [id number] [place] [address]- 7184 Jul, [facility] [place] [facility] [address] [id number] [place] [address]- 6300 Jul, [facility] [place] [facility] [address] [id number] [place] [address]- 0917 Jul, [facility] [place] [facility] [address] [id number] [place] [address]- 7347 Jul, [facility] [place] [facility] [address] [id number] [place] [address]- 9789 Jul, [facility] [place] [facility] [address] [id number] [place] [address]- 7451 Jul, [facility] [place] [facility] [address] [id number] [place] [address]- 1400 Jul, [facility] [place] [facility] [address] [id number], [place] [address]- [address]66 23 Jun, 2011 [facility] [place] [facility] [address] [id number] [place] [address]- 5024 19 Jun, 2011 [facility] [place] [facility] [address] [id number] [place] [address]- 8178 15 Jun, 2011 [facility] [place] [facility] [address] [id number] [place] [address]- 5550 14 Jun, 2011 [facility] [place] [facility] [address] [id number] [place] [address]- 9124 Jun, [facility] [address] [id number] [place] [address]- 8986 Jun, [facility] [place] [facility] [address] [id number] [place] [address] 2546 Jun, [facility] [address] [id number] [place] [address]- 4906 May, [facility] [place] [facility] [address] [id number] [place] [address] 2546 May, [facility] [address] [id number] [place] [address]- 3996 May, [facility] [address] [id number] [place] [address]- 2546 May, [facility] [address] [id number] [place] [address] 2546 May, [facility] [address] [id number] [place] [address]- 3360 Apr, [facility] [address] [id number] [place] [address]- [address] Apr, [facility] [address] [facility] [id number] [place] [address]- 1416 Apr, [facility] [address] [id number] [place] [address] 2546 Apr, [facility] [address] [id number] [place] [address] 2546 Apr, [facility] [place] [facility] [address] [id number] [place] [address]- 0036 Mar, [facility] [place] [facility] [address] [id number] [place] [address] 2546 Mar, [facility] [address] [id number] [place] [address]- 7061 Mar, [facility] [place] [facility] [address] [id number] [place] [address]- 4593 Mar, [facility] [place] [facility] [address] [id number] [place] [address] Mar, [facility] [place] [facility] [address] [id number] [place] [address]- 4648 Mar, [facility] [place] [facility] [address] [id number] [place] [address]- 4199 Mar, [facility] [place] [facility] [address] [id number] [place] [address] Feb, [facility] [place] [facility] [address] [id number] [place] [address]- 6102 Feb, [facility] [place] [facility] [address] [id number] [place] [address]- 7565 Feb, [facility] [place] [facility] [address] [id number] [place] [address]- 7742 Feb, [facility] [place] [facility] [address] [id number] [place] [address]- 0245 Jan, [facility] [place] [facility] [address] [id number] [place] [address]- 0954 Jan, [facility] [place] [facility] [address] [id number] [place] [address]- 5010 Jan, [facility] [place] [facility] [address] [id number] [place] [address]- 7024 Jan, [facility] [place] [facility] [address] [id number] [place] [address]- 9295 Nov, [facility] [place] [facility] [address] [id number] [place] [address]- 7850 Mar, [facility] [place] [facility] [address] [id number] [place] [address]- 8002 Mar, [facility] [place] [facility] [address] [id number], [place] [address]- 4486 Mar, [facility] [address], [place] [address] Mar, [facility] [address], [place] [address]- 9436 Mar, [facility] [address], [place] [address]- 5970 Mar, [facility] [id number] [place] [address]- 4197 Feb, [facility] [id number] [place] [address] 10069 8650 Feb, [facility] [id number] [place] [address] 397[address]- 9359 Jan, [facility] [id number] [place] [address]- 0442 Jan, [facility] [address] [address] Jan, IMMUNIZATIONS No Known Immunizations SOCIAL HISTORY Never Assessed REASON FOR VISIT Prior Authorization Request PLAN OF CARE VITAL SIGNS MEDICATIONS [...] & 2007 Surgical History Bladder surgery [facility] 03/2016 Surgical History Neurotransmitter placed 10/2017 Hospitalization History Surgeries Only Hospitalization History 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
--- OUTSIDE RECORDS SUMMARY | 2018-05-29 08:44 | XMS REPORT ---
Author Author ISABEL MAE [facility] Address [address] [place] [address] Care Team Providers Care Marketing Sales Representative Name Role Phone ISABEL MAE Unavailable PROBLEMS Type Condition ICD9-CM Code [id number] Code Onset Dates Condition Status SNOMED Code Problem Long-term use of high-risk medication Z79.899 Active 425822201 Problem Abnormal chest CT R93.8 Active 496422990 Problem Generalized anxiety disorder F41.1 Active 77606854 Problem Low back pain M54.5 Active 404765121 Problem Dysthymic disorder F34.1 Active 61027419 Problem Depressed F32.9 Active 50382292 Problem Coronary artery disease involving [place] coronary artery of [place] heart, angina presence unspecified I25.10 Active 5586874757314 Problem Hypothyroid E03.9 Active 74017185 Problem Insomnia G47.00 Active 624446713 Problem Vitamin D deficiency E55.9 Active 35693489 Problem Asthma J45.909 Active 874874485 Problem Chronic kidney disease, unspecified N18.9 Active 194576022 Problem Palpitations R00.2 Active 34323014 Problem Anemia in chronic kidney disease D63.1 Active [id number] Problem Primary osteoarthritis of left knee M17.12 Active 727375640 Problem Bipolar disorder, current episode manic without psychotic features F31.10 Active 188771499 Problem Restless leg syndrome G25.81 Active 36197305 Problem Seasonal allergic rhinitis due to pollen J30.1 Active 47629696 Problem Functional diarrhea K59.1 Active 43930684 Problem Chronic kidney disease, stage 4 (severe) N18.4 Active 141606697 Problem Restless leg G25.81 Active 91977776 Problem Mood disorder F39 Active 73144300 Problem Degenerative tear of medial meniscus of left knee M23.204 Active 019178267 Problem Body mass index (BMI) of 40.0-44.9 in adult Z68.41 Active 800876675 Problem Stage 3 chronic kidney disease N18.3 Active 004171976 Problem Asthma with acute exacerbation in adult J45.901 Active 297939127 Problem Other seasonal allergic rhinitis J30.2 Active 715332327 Problem History of colon polyps Z86.010 Active 438045746 Problem History of anemia Z86.2 Active 671976615 Problem Fibromyalgia M79.7 Active 677936210 Problem Essential (primary) hypertension I10 Active 64045557 Problem Hypokalemia E87.6 Active 67461697 Problem Mixed stress and urge urinary incontinence N39.46 Active 611335395 ALLERGIES No Information ENCOUNTERS Encounter Location Date Diagnosis [facility] [address] [address] Nov, [place] [address] [address]- [address]183 Nov, [place] [address] 30186- 1617 Nov, Fibromyalgia M79.7 [facility] [address] [address]- 4514 Nov, Complicated UTI (urinary tract infection) N39.0 [facility] [address] 26031- 9952 Oct, [place] [address] 12776- 2550 Oct, Generalized anxiety disorder F41.1 and Major depressive disorder, recurrent episode with anxious distress F33.9 [facility] [address] 323[address]- 3069 Oct, [facility] [address] 54956- 2491 Oct, Fibromyalgia M79.7 [facility] [address] 86892- 2183 Sep, Restless leg syndrome G25.81 and Restless leg G25.81 [facility] [address] 00777- 4376 Sep, [place] [address] [place] [id number] [place] [address] 99989- 1265 Sep, Seasonal allergic rhinitis due to pollen J30.1 ; Screening for breast cancer Z12.31 ; Chest pain at rest R07.9 ; Restless leg syndrome G25.81 ; Essential (primary) hypertension I10 and Depressed F32.9 [place] [address] 9[address]- 0645 August, Fibromyalgia M79.7 [place] [address] 01492- 0959 August, [place] [address] 88109- 4351 August, [place] [address] 66493- 6584 August, Abnormal chest CT R93.8 [place] [address] 88942- 5563 August, Generalized anxiety disorder F41.1 and Major depressive disorder, recurrent episode with anxious distress F33.9 [place] [address] [place] [id number] [place] [address] 41198- [address] August, [address] R93.8 [place] [address] [place] [id number] [place] [address] 84793- 9974 Jul, [place] [address] [place] [id number] [place] [address] 30587- 2823 Jul, Chronic kidney disease, stage 4 (severe) N18.4 [place] [address] 42202- 1476 Jul, [place] [address] [place] [id number] [place] [address] 37591- 0322 Jul, Restless leg G25.81 ; Mixed stress and urge urinary incontinence N39.46 and Fibromyalgia M79.7 [place] [address] [place] [id number] [place] [address] 50436- 7391 Jul, Chronic kidney disease, stage 4 (severe) N18.4 [facility] [address] [place] [id number] [place] [address] 83858- 6223 Jun, Orthostatic hypotension I95.1 ; Chronic kidney disease, stage 4 (severe) N18.4 ; Chest wall discomfort R07.89 and Body mass index (BMI) of 40.0-44.9 in adult Z68.41 [place] [address] [place] [id number] [place] [address] 43226- 1097 Jun, [place] [address] [place] [id number] [place] [address] 83863- 7481 Jun, Orthostatic hypotension I95.1 [place] [address] [place] [id number] [place] [address] 79604- 5356 Jun, [facility] [address] [place] [id number] [place] [address] 78421 -2946 Jun, Orthostatic hypotension I95.1 ; Dysuria R30.0 and Acute cystitis without hematuria N30.00 [place] [address] [place] [id number] [place] [address] 87920- 2483 Jun, [place] [address] [place] [id number] [place] [address] 56465- 7407 Jun, Chronic kidney disease, stage 4 (severe) N18.4 [place] [address] [place] [id number] [place] [address] 70822- 9336 Jun, Fibromyalgia M79.7 [facility] [address] [place] [id number] [place] [address] 28888- 1496 Jun, [place] [address] [place] [id number] [place] [address] 91942- 8028 Jun, [facility] [address] [place] [id number] [place] [address] 13482- [address] May, [address] R93.8 and Stage 3 chronic kidney disease N18.3 [facility] [address] [address] 3421 May, Chronic kidney disease, stage 4 (severe) N18.4 [facility] [address] [address]- 7591 May, Chronic kidney disease, stage 4 (severe) N18.4 [facility] [address] [place] [address] 43423- [address] May, [address] R93.8 [facility] [address] [place] [address] 54292- 4926 May, [facility] [address] [place] [id number] [place] [address] 28596- 7340 May, [facility] [address] [place] [id number] [place] [address] 20757- 9187 May, Generalized anxiety disorder F41.1 and Major depressive disorder, recurrent episode with anxious distress F33.9 [facility] [address] [address]- 4873 May, Mood disorder F39 [facility] [address] [place] [address] 79558- 4722 Apr, [facility] [address] [place] [address] 75024- 0164 Apr, Infected skin lesion L08.9 and Muscle strain of right shoulder region, initial encounter S46.911A [facility] [address] [address]- 06[address] Apr, Generalized anxiety disorder F41.1 and Major depressive disorder, recurrent episode with anxious distress F33.9 [facility] [address] [address]- 0840 Apr, [facility] [address] [place] [address] 90643- 9806 Apr, Recent urinary tract infection Z87.440 and Hypothyroid E03.9 [place] [address] [place] [address] 90517- 0614 Apr, Generalized anxiety disorder F41.1 and Major depressive disorder, recurrent episode with anxious distress F33.9 [place] [address] [address]- 4182 Apr, Recent urinary tract infection Z87.440 [place] [address] [place] [id number] [place] [address] 77235- 3361 Mar, [facility] [address] [place] [address] 72028 -5940 Mar, Dysuria R30.0 ; Acute cystitis without hematuria N30.00 and BMI 40.0-44.9, adult Z68.41 [place] [address] [place] [id number] [place] [address] 06415- 8572 Mar, [place] [address] [place] [id number] [place] [address] 93163- 8139 Mar, [place] [address] [place] [id number] [place] [address] 94769- 3968 Mar, Generalized anxiety disorder F41.1 and Major depressive disorder, recurrent episode with anxious distress F33.9 [place] [address] [address]- 8780 Feb, Conjunctivitis, bacterial H10.9 [place] [address] [place] [address] 58428- 7063 Feb, [facility] [address] [place] [address] 53194 -6066 Feb, Conjunctivitis, bacterial H10.9 [place] [address] [place] [address] 87836- 3124 Feb, [facility] [address] [place] [address] 23234 -5835 Feb, Dysuria R30.0 ; Acute cystitis N30.00 and BMI 40.0-44.9, adult Z68.41 [place] [address] 47563- 9983 Feb, [place] [address] [place] [id number] [place] [address] 14338- 4679 Feb, Generalized anxiety disorder F41.1 and Major depressive disorder, recurrent episode with anxious distress F33.9 [place] [address] 81168- 0165 Feb, Mood disorder F39 and BMI 40.0-44.9, adult Z68.41 [place] [address] 32634- 5541 Jan, [place] [address] 34932- 9582 Jan, [place] [address] 64289- 1755 Jan, Hypothyroid E03.9 [place] [address] [place] [id number] [place] [address] 67040- 8896 Jan, [place] [address] [place] [id number] [place] [address] 84782- 1072 Jan, Chronic kidney disease, unspecified N18.9 ; Hypokalemia E87.6 ; Essential (primary) hypertension I10 ; Fibromyalgia M79.7 ; Coronary artery disease involving [place] coronary artery of [place] heart, angina presence unspecified I25.10 ; Hypothyroid E03.9 and Encounter for immunization Z23 [place] [address] [place] [id number] [place] [address] 07156- 7540 Jan, Hypothyroid E03.9 [place] [address] 27580- 9428 Jan, [place] [address] [place] [id number] [place] [address] 39250- 6484 28 Sep, 2017 Vitamin D deficiency E55.9 [facility] [address] [address] 2545 28 Dec, 2017 Primary osteoarthritis of left knee M17.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 [facility] [address] [address] 2546 19 Dec, 2016 Fibromyalgia M79.7 [facility] [address] [place] [id number] [place] [address] 12840 2546 18 Sep, 2016 Mood disorder F39 [place] [address] [place] [address] 69109 2546 13 Dec, 2016 [place] [address] [place] [id number] [place] [address] 94947 2546 13 Dec, 2016 Generalized anxiety disorder F41.1 and Major depressive disorder, recurrent episode with anxious distress F33.9 [place] [address] [place] [address] 04719 2546 11 Dec, 2016 [place] [address] [place] [address] 51686 2546 08 Dec, 2016 Streptococcal meningitis G00.2 [place] [address] [place] [address] 62552 2546 07 Dec, 2016 Streptococcal meningitis G00.2 [place] [address] [address] 2546 07 Dec, 2016 [place] [address] [place] [address] 15686 2546 06 Dec, 2016 Streptococcal meningitis G00.2 [place] [address] [place] [address] 99083 2546 06 Dec, 2016 [place] [address] [place] [address] 61670 2546 06 Dec, 2016 Major depressive disorder, recurrent episode with anxious distress F33.9 [facility] [address] [place] [address] 59748- 2510 Nov, Fever, unspecified fever cause R50.9 [facility] [address] [place] [id number] [place] [address] 88979- 6624 Nov, [facility] [address] [place] [id number] [place] [address] 22749- 7686 Nov, Hypothyroid E03.9 [facility] [address] [place] [id number] [place] [address] 82385- 1903 Nov, Generalized anxiety disorder F41.1 and Major depressive disorder, recurrent episode with anxious distress F33.9 [facility] [address] [place] [id number] [place] [address] 00764- 7344 Nov, [facility] [address] [id number] Oct, Dental examination Z01.20 [facility] [address] [place] [id number] [place] [address] 18732- 2922 Oct, Generalized anxiety disorder F41.1 and Major depressive disorder, recurrent episode with anxious distress F33.9 [facility] [address] [place] [id number] [place] [address] 27364- 6029 Oct, Chronic kidney disease, stage 4 (severe) N18.4 [facility] [address] [place] [id number] [place] [address] 89700- 2970 Oct, [facility] [address] [place] [id number] [place] [address] 70048- 2916 Oct, Fibromyalgia M79.7 [facility] [address] [place] [id number] [place] [address] 92793- 8895 Oct, [facility] [address] 17981- 4109 Oct, Generalized anxiety disorder F41.1 ; Major depressive disorder, recurrent episode with anxious distress F33.9 and Bipolar disorder, current episode manic without psychotic features F31.10 [facility] [address] [place] [id number] [place] [address] 40700- 4083 Sep, [place] [address] [address]- 1892 Sep, [place] [address] [place] [id number] [place] [address] 61345- 6331 Sep, Vitamin D deficiency E55.9 [place] [address] [place] [address] 83641- 2831 Sep, Vitamin D deficiency E55.9 [place] [address] [place] [address] 18474- 1711 Sep, [place] [address] [place] [id number] [place] [address] 05248- 3530 Sep, Chronic kidney disease, stage 4 (severe) [...] examination Z12.39 and Low back pain M54.5 [place] [address] [place] [address] 08697- 4009 August, Generalized anxiety disorder F41.1 and Major depressive disorder, recurrent episode with anxious distress F33.9 [place] [address] [address]- 0080 August, Generalized anxiety disorder F41.1 and Major depressive disorder, recurrent episode with anxious distress F33.9 [place] [address] [place] [address] 55670- 1437 August, Fibromyalgia M79.7 [place] [address] [place] [address] 01671- 7147 Jul, Generalized anxiety disorder F41.1 and Major depressive disorder, recurrent episode with anxious distress F33.9 [place] [address] [place] [id number] [place] [address] 32092- 8848 Jul, Fibromyalgia M79.7 [place] [address] 48495- 7082 Jul, Generalized anxiety disorder F41.1 [place] [address] [place] [id number] [place] [address] 69654- 0690 May, [place] [address] 57530- 9708 May, Hypothyroid E03.9 [place] [address] 92914- 4004 May, Chronic kidney disease, stage 4 (severe) [...] [place] heart, angina presence unspecified I25.10 [place] [address] [place] [id number] [place] [address] 92966- 7610 May, Vitamin D deficiency, unspecified E55.9 [place] [address] [place] [address] [place] [address] 46454- 4254 May, Generalized anxiety disorder F41.1 and Major depressive disorder, recurrent episode with anxious distress F33.9 [place] [address] [place] [address] [place] [address] 45234- 0038 Apr, Pain in right knee M25.561 and Pain in left knee M25.562 [place] [address] [place] [address] [place] [address] 90535- 3991 Apr, [place] [address] [place] [id number] [place] [address] 28176- 1942 Apr, [place] [address] [address]- 4245 Apr, [place] [address] [place] [id number] [place] [address] 19221- 6889 Mar, Generalized anxiety disorder F41.1 and Major depressive disorder, recurrent episode with anxious distress F33.9 [place] [address] [place] [id number] [place] [address] 48167- 3879 Mar, Generalized anxiety disorder F41.1 and Major depressive disorder, recurrent episode with anxious distress F33.9 [place] [address] [place] [id number] [place] [address] 45484- 1058 Mar, [place] [address] [place] [id number] [place] [address] 88487- 1061 Mar, [place] [address] [place] [id number] [place] [address] 76708- 4356 Mar, [place] [address] [place] [id number] [place] [address] 37339- 7237 Mar, Asthma J45.909 and Fibromyalgia M79.7 [place] [address] [place] [id number] [place] [address] 65679- 7123 Mar, Chronic kidney disease, stage 4 (severe) N18.4 ; Vitamin D deficiency E55.9 and Essential (primary) hypertension I10 [place] [address] [place] [id number] [place] [address] 71527- 8732 Feb, [place] [address] [place] [id number] [place] [address] 41284- 9624 Feb, Dysuria R30.0 ; Mixed stress and urge urinary incontinence N39.46 ; Fibromyalgia M79.7 and Chronic kidney disease, stage IV (severe) N18.4 [place] [address] [place] [address] [place] [address] 43357- 1656 Feb, Chronic kidney disease, stage 4 (severe) N18.4 [place] [address] [place] [id number] [place] [address] 01590- 7307 Feb, Chronic kidney disease, stage 4 (severe) N18.4 [place] [address] [place] [address] 49520- 6601 Feb, [place] [address] [place] [id number] [place] [address] 73476- 1127 Feb, Vitamin D deficiency, unspecified E55.9 [place] [address] [place] [id number] [place] [address] 43095- 5994 Jan, [place] [address] [place] [id number] [place] [address] 76455- 6471 Jan, [place] [address] [place] [id number] [place] [address] 36021- 9399 Dec, [place] [address] [place] [id number] [place] [address] 63339- 8270 Dec, Chronic kidney disease, stage 4 (severe) N18.4 [place] [address] [place] [id number] [place] [address] 73736- 1141 Dec, Dysthymic disorder F34.1 and Generalized anxiety disorder F41.1 [place] [address] [place] [address] [place] [address] 63975- 7019 Dec, [place] [address] [place] [id number] [place] [address] 40024- 3717 Dec, [place] [address] [place] [address] [place] [address] 79178- 9982 Dec, Dysthymic disorder F34.1 and Generalized anxiety disorder F41.1 [place] [address] [place] [address] [place] [address] 64626- 9433 Dec, Dysuria R30.0 ; Chronic kidney disease, stage 4 (severe) N18.4 ; Hypertension I10 ; Dyspepsia R10.13 ; Yeast dermatitis B37.2 ; Palpitations R00.2 ; Hypothyroid E03.9 ; Functional diarrhea K59.1 and Other seasonal allergic rhinitis J30.2 [facility] [address] [place] [id number] [place] [address] 03410 -9908 Dec, [facility] [address] 05512 -8515 Nov, Dysuria R30.0 and Stress incontinence N39.3 [facility] [address] 28159- 1559 Nov, [facility] [address] 26186- 6777 Nov, [place] [address] 00251- 5270 Nov, Osteoarthritis of knees, bilateral M17.0 [place] [address] [place] [id number] [place] [address] 56277- 5980 Nov, Dysthymic disorder F34.1 and Generalized anxiety disorder F41.1 [place] [address] [place] [id number] [place] [address] 63174- 4267 Nov, [place] [address] 18668- 4826 Nov, [place] [address] [place] [id number] [place] [address] 23164- 1925 Nov, Urgency of urination R39.15 [place] [address] [place] [id number] [place] [address] 20483- 2053 Nov, [place] [address] [place] [id number] [place] [address] 97951- 8551 Nov, Chronic kidney disease, stage 4 (severe) N18.4 [place] [address] 22542- 0855 Oct, Hypertension I10 ; Coronary artery disease involving [place] coronary artery of [place] heart, angina presence unspecified I25.10 ; Palpitations R00.2 ; Hypothyroid E03.9 ; Right foot pain M79.671 ; Functional diarrhea K59.1 and Other seasonal allergic rhinitis J30.2 [facility] [address] [place] [address] 48837- 7041 Oct, Dysthymic disorder F34.1 and Generalized anxiety disorder F41.1 [facility] [address] [place] [id number] [place] [address] 74587- 8473 Sep, [facility] [address] [place] [id number] [place] [address] [id number] Sep, [facility] [id number] [place] [address] [id number] [id number] Sep, [facility] [id number] [place] [address] [phone] Sep, [facility] [id number] [place] [address] [id number] [phone] Sep, [facility] [id number] [place] [address] [phone] [phone] Sep, Dysthymic disorder F34.1 and Generalized anxiety disorder F41.1 [facility] [id number] [place] [address] [phone] Sep, Asthma with acute exacerbation in adult J45.901 ; Dysuria R30.0 ; Chronic kidney disease, stage 4 (severe) N18.4 and History of anemia Z86.2 [facility] [id number] [place] [address] 56419- 4101 Sep, Generalized anxiety disorder F41.1 and Dysthymic disorder F34.1 [facility] [facility] [id number] [place] [address] 89358- 4833 August, Screening breast examination Z12.39 and Acute recurrent maxillary sinusitis J01.01 [facility] [id number] [place] [address] 30411- 0616 August, Osteoarthritis of knees, bilateral M17.0 [facility] [id number] [place] [address] 43961- 2638 August, Chronic kidney disease, stage 4 (severe) N18.4 ; Acute non- recurrent maxillary sinusitis J01.00 ; Urinary problem R39.89 ; Bowel habit changes R19.4 ; Functional diarrhea K59.1 and History of colon polyps Z86.010 [facility] [id number] [place] [address] 38743- 1123 29 Jul, 2015 Dysthymic disorder F34.1 and Generalized anxiety disorder F41.1 [facility] [id number] [place] [address] 99481- 0620 Jul, [facility] [id number] [place] [address] 82558- 5366 Jul, Dysthymic disorder F34.1 ; Generalized anxiety disorder F41.1 and detention use of drug Z79.899 [facility] [id number] [place] [address] 12663- 1237 Jul, [facility] [id number] [place] [address] 76454- 1743 Jun, [facility] [id number] [place] [address] 57632- 0580 Jun, [facility] [id number] [place] [address] 99915- 5231 May, [facility] [id number] [place] [address] 80042- 4189 May, Dysthymic disorder F34.1 and Generalized anxiety disorder F41.1 [facility] [id number] [place] [address] 50315- 5714 Apr, Kidney disease N28.9 [facility] [id number] [place] [address] 49953- 9391 Apr, Generalized anxiety disorder F41.1 and Dysthymic disorder F34.1 [facility] [id number] [place] [address] 23316- 8917 Apr, Chronic kidney disease, stage 4 (severe) N18.4 [facility] [id number] [place] [address] 51841- 0706 Apr, Generalized anxiety disorder F41.1 ; Major depression, recurrent F33.9 and Sleep disturbance G47.9 [facility] [id number] [place] [address] 50997- 2023 Mar, Generalized anxiety disorder F41.1 and Dysthymic disorder F34.1 [facility] [address] 71132- 5818 Mar, Generalized anxiety disorder F41.1 ; Dysthymic disorder F34.1 and Insomnia G47.00 [facility] [address] 52153- 0524 Mar, [facility] [address] 29355- 4680 Mar, [facility] [address] 91034- 7043 Mar, Osteoarthritis of knees, bilateral M17.0 [facility] [address] 86369- 8201 Mar, Hypertension I10 ; Hypothyroid E03.9 ; Dysthymic disorder F34.1 ; Chronic kidney disease, stage 4 (severe) N18.4 and Nausea & vomiting R11.2 [facility] [id number] [place] [address] 33798- 2519 Mar, Generalized anxiety disorder F41.1 ; Dysthymic disorder F34.1 and Insomnia G47.00 [facility] [address] 91542- 8101 Mar, Dehydration E86.0 ; Chronic kidney disease, stage 4 (severe ) N18.4 and Nausea & vomiting R11.2 [facility]ALK IN [facility] [id number] [place] [address] 26640 -4317 Mar, Gastroenteritis K52.9 [facility] [id number] [place] [address] 08689- 7518 Mar, [place] [id number] [place] [address] 32699- 4756 Mar, [place] [id number] [place] [address] 33107- 3957 Feb, Dysthymic disorder F34.1 and Generalized anxiety disorder F41.[address] 42008- 8486 Jan, UTI (urinary tract infection) N39.0 ; Asthma J45.909 ; Coronary artery disease involving [place] coronary artery of [place] heart, angina presence unspecified I25.10 ; Hypertension I10 ; Hypothyroid E03.9 ; Vitamin D deficiency E55.9 ; Insomnia G47.00 ; Palpitations R00.2 ; Depressed F32.9 ; Restless leg G25.81 and Anxiety F41.9 [place] [id number] [place] [address] 49291- 7368 Jan, Dysthymic disorder F34.1 and Generalized anxiety disorder F41.1 [place] [id number] [place] [address] 51786- 3591 Jan, [place] [id number] [place] [address] 40494- 5288 Dec, [place] [id number] [place] [address] 07621- 5511 Dec, Alkalosis 276.3 ; Chronic kidney disease, 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.4 ; Hyperpotassemia 276.7 ; Secondary hyperparathyroidism, renal 588.81 ; Proteinuria 791.0 ; Unspecified vitamin D deficiency 268.9 ; Anemia in chronic kidney disease 285.21 ; Other and unspecified hyperlipidemia 272.4 ; Hypertension, essential, benign 401.1 and Chronic kidney disease (CKD), stage III (moderate) 585.3 [place] [id number] [place] [address] 99473- 6303 Dec, [facility] [place] [id number] [place] [address] 62577- 0781 Dec, Depressive disorder, not elsewhere classified 311 and Generalized anxiety disorder 300.02 [facility] [id number] [place] [address] 67663- 1538 Dec, [facility] [id number] [place] [address] 07018- 1663 Dec, [facility] [address] 66419- 5888 Nov, Depressive disorder, not elsewhere classified 311 and Generalized anxiety disorder 300.[address] 70573- 7040 Nov, Arthritis of both knees 716.[address] 74067- 7857 Nov, PAF (paroxysmal atrial fibrillation) 427.31 ; CAD (coronary artery disease) 414.00 ; Chest pain 786.50 and Chronic kidney disease (CKD) stage G4/A1, severely decreased glomerular filtration rate (GFR) between 15-29 mL/min/1.73 square meter and albuminuria creatinine ratio less than 30 mg/g 585.4 [place] [id number] [place] [address] 87133- 0553 Oct, Coronary atherosclerosis of unspecified type of vessel, [place] or graft 414.00 ; Chronic kidney disease, 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.4 ; Hypertension 401.9 and Edema 782.3 [place] [id number] [place] [address] 64139- 0546 Oct, Depressive disorder, not elsewhere classified 311 and Generalized anxiety disorder 300.02 [place] [id number] [place] [address] 62654- 2907 Oct, Depressive disorder, not elsewhere classified 311 and Generalized anxiety disorder 300.02 [place] [id number] [place] [address] 43940- 0440 Oct, [place] [address] [address]- 4690 Oct, [facility] [id number] [place] [address] 27735- 1830 Sep, [facility] [id number] [place] [address] 76876- 7593 Sep, Chronic kidney disease, Stage IV (severe) 585.4 [facility] [id number] [place] [address] 54753- 4614 Sep, [facility] [id number] [place] [address] 12721- 8411 Sep, Coronary atherosclerosis of unspecified type of vessel, [place] or graft 414.00 ; Hypertension 401.9 ; Edema 782.3 and Hypothyroidism 244.9 [facility] [id number] [place] [address] 75832- 3574 Sep, Coronary atherosclerosis of unspecified type of vessel, [place] or graft 414.00 ; Hypertension 401.9 ; Fibromyalgia 729.1 ; Edema 782.3 ; Hypothyroidism 244.9 and Anemia 285.9 [facility] [id number] [place] [address] 41946- 6142 Sep, Anxiety disorder, unspecified 300.00 and Depressive disorder , not elsewhere classified 311 [facility] [id number] [place] [address] 72264- 1067 Sep, [facility] [id number] [place] [address] 36115- 1253 August, Generalized anxiety disorder 300.02 [facility] [id number] [place] [address] 45687- 7605 August, Closed fracture of lateral malleolus 824.2 [facility] [id number] [place] [address] 75125- 1015 Jul, [facility] [id number] [place] [address] 83847- 1920 Jul, [facility] [place] [facility] [address] [id number] [place] [address]- 8846 Jun, [facility] [place] [facility] [address] [id number] [place] [address]- 1673 Jun, [facility] [place] [facility] [address] [id number] [place] 3308 Jun, [facility] [place] [facility] [address] [id number] [place] [address]- 2828 Jun, [facility] [place] [facility] [address] [id number] [place] [address]- 9929 Jun, [facility] [place] [facility] [address] [id number] [place] [address]- 8455 Jun, [facility] [place] [facility] [address] [facility] [id number] [place] [address]- 7045 May, [facility] [place] [facility] [address] [id number] [place] [address]- 8555 May, 2014 [facility] [place] [facility] [address] [id number] [place] [address]- 2222 18 May, 2014 [facility] [place] [facility] [address] [facility] [id number] [place] [address]- 7283 18 May, 2014 [facility] [place] [facility] [address] [id number] [place] [address]- 5544 16 May, 2014 [facility] [place] [facility] [address] [id number] [place] [address]- 6784 16 May, 2014 [facility] [place] [facility] [address] [id number] [place] [address]- 4099 13 May, 2014 [facility] [place] [facility] [address] [id number] [place] [address]- 8794 13 May, 2014 [facility] [place] [facility] [address] [facility] [id number] [place] [address]- 8056 10 May, 2014 [facility] [place] [facility] [address] [id number] [place] [address]- 1721 May, [facility] [address] [id number] [place] [address]- 5285 Apr, [facility] [place] [facility] [address] [id number] [place] [address]- 1293 Apr, [facility] [address] [id number] [place] [address]- 0478 Mar, [facility] [place] [facility] [address] [id number] [place] [address]- 7697 Mar, [facility] [address] [id number] [place] [address]- 2715 Mar, [facility] [place] [facility] [address] [id number] [place] [address]- 0556 Mar, [facility] [place] [facility] [address] [id number] [place] [address]- 3132 Mar, [facility] [address] [id number] [place] [address]- 3488 Mar, [facility] [place] [facility] [address] [id number] [place] [address]- 4119 Mar, [facility] [place] [facility] [address] [id number] [place] [address]- 2420 Feb, [facility] [place] [facility] [address] [id number] [place] [address]- 5262 Feb, [facility] [place] [facility] [address] [id number] [place] [address]- 1407 Feb, [facility] [place] [facility] [address] [id number] [place] [address]- 0239 Jan, [facility] [place] [facility] [address] [id number] [place] [address]- 8736 Jan, [facility] [place] [facility] [address] [id number] [place] [address]- 5773 Jan, [facility] [place] [facility] [address] [id number] [place] [address]- 0212 Jan, [facility] [place] [facility] [address] [id number] [place] [address]- 1191 Jan, [facility] [place] [facility] [address] [id number] [place] 4879 Jan, [facility] [place] [facility] [address] [id number] [place] [address]- 6186 Jan, [facility] [place] [facility] [address] [id number] [place] [address]- 8865 Jan, [facility] [place] [facility] [address] [id number] [place] [address]- 8632 Jan, [facility] [place] [facility] [address] [id number] [place] [address]- 5881 Jan, [facility] [place] [facility] [address] [id number] [place] [address]- 2228 Nov, [facility] [place] [facility] [address] [id number] [place] [address]- 9041 Nov, [facility] [place] [facility] [address] [id number] [place] [address]- 1476 Nov, [facility] [place] [facility] [address] [id number] [place] [address]- 5242 Oct, [facility] [place] [facility] [address] [id number] [place] [address]- 6173 Oct, [facility] [place] [facility] [address] [id number] [place] [address]- 2553 Oct, [facility] [place] [facility] [address] [id number] [place] [address]- 4630 Oct, [facility] [place] [facility] [address] [id number] [place] [address]- 7926 Oct, [facility] [place] [facility] [address] [id number] [place] [address]- 4731 Oct, [facility] [place] [facility] [address] [id number] [place] [address]- 7531 Oct, [facility] [place] [facility] [address] [id number] [place] [address]- 7832 Oct, [facility] [place] [facility] [address] [id number] [place] [address]- 2095 Oct, [facility] [place] [facility] [address] [id number] [place] [address]- 5543 Sep, [facility] [place] [facility] [address] [id number] [place] [address]- 3373 Sep, [facility] [place] [facility] [address] [id number] [place] [address]- 3001 Sep, [facility] [place] [facility] [address] [id number] [place] [address]- 7137 Sep, [facility] [place] [facility] [address] [id number] [place] [address]- 7203 Sep, [facility] [place] [facility] [address] [id number] [place] [address]- 7550 Sep, [facility] [place] [facility] [address] [id number] [place] [address]- 7275 Sep, [facility] [place] [facility] [address] [id number] [place] [address]- 3819 Sep, [facility] [place] [facility] [address] [id number] [place] [address]- 6910 Sep, [facility] [place] [facility] [address] [id number] [place] [address]- 2658 August, [facility] [place] [facility] [address] [id number] [place] [address]- 6523 August, [facility] [place] [facility] [address] [id number] [place] [address]- 7340 August, [facility] [place] [facility] [address] [id number] [place] [address]- 0340 August, [facility] [place] [facility] [address] [id number] [place] [address]- 9409 August, [facility] [place] [facility] [address] [id number] [place] [address]- 2288 August, [facility] [place] [facility] [address] [id number] [place] [address]- 7138 Jul, [facility] [place] [facility] [address] [id number] [place] [address]- 2464 Jul, [facility] [place] [facility] [address] [id number] [place] [address]- 0221 Jul, [facility] [place] [facility] [address] [id number] [place] [address]- 5518 Jul, [facility] [place] [facility] [address] [id number] [place] [address]- 9812 Jul, [facility] [place] [facility] [address] [id number] [place] [address]- 6157 Jul, [facility] [place] [facility] [address] [id number] [place] [address]- 3812 Jun, [facility] [place] [facility] [address] [id number] [place] [address]- 0995 Jun, [facility] [place] [facility] [address] [id number] [place] [address]- 0723 May, [facility] [place] [facility] [address] [id number] [place] [address]- 3735 May, [facility] [place] [facility] [address] [id number] [place] [address]- 9252 May, [facility] [place] [facility] [address] [id number] [place] [address]- 6510 May, [facility] [place] [facility] [address] [id number] [place] [address]- 1821 Apr, [facility] [place] [facility] [address] [id number] [place] [address]- 0034 Apr, [facility] [place] [facility] [address] [id number] [place] [address]- 2574 Mar, [facility] [place] [facility] [address] [id number] [place] [address]- 3412 Mar, [facility] [place] [facility] [address] [id number] [place] [address]- 9426 Mar, [facility] [place] [facility] [address] [id number] [place] 6792 Mar, [facility] [place] [facility] [address] [id number] [place] [address]- 6964 Mar, [facility] [place] [facility] [address] [id number] [place] [address]- 0529 Mar, [facility] [place] [facility] [address] [id number] [address]- 1562 Feb, [facility] [place] [facility] [address] [id number] [place] [address]- 9899 Feb, [facility] [place] [facility] [address] [id number] [place] [address]- 8334 Feb, [facility] [place] [facility] [address] [id number] [address]- 6913 Feb, [facility] [place] [facility] [address] [id number] [address]- 7515 05 Feb, 2013 [facility] [place] [facility] [address] [id number] [place] [address]- 2629 Feb, [facility] [place] [facility] [address] [id number] [address]- 5488 Jan, [facility] [place] [facility] [address] [id number] [address]- 4299 Jan, [facility] [place] [facility] [address] [id number] [place] [address]- 1587 Jan, [facility] [address] [id number] [place] [address]- 1072 Jan, [facility] [place] [facility] [address] [id number] [place] [address]- 0601 Jan, [facility] [address] [id number] [place] [address]- 8253 Jan, [facility] [place] [facility] [address] [id number] [place] [address]- 2631 Dec, [facility] [address] [id number] [place] [address]- 2844 Dec, [facility] [place] [facility] [address] [id number] [place] [address]- 8938 Nov, [facility] [address] [id number] [place] [address]- 7023 Nov, [facility] [address] [id number] [place] [address]- 3609 Oct, [facility] [place] [facility] [address] [id number] [place] [address]- 3253 Oct, [facility] [address] [id number] [place] [address]- 4050 Oct, [facility] [place] [facility] [address] [id number] [place] [address]- 8134 Oct, [facility] [place] [facility] [address] [id number] [place] [address]- 7043 Oct, [facility] [place] [facility] [address] [id number] [place] [address]- 8653 Oct, [facility] [place] [facility] [address] [id number] [place] [address]- 6506 Sep, [facility] [place] [facility] [address] [id number] [place] [address]- 7016 Sep, [facility] [address] [id number] [place] [address]- 6741 Sep, [facility] [address] [id number] [place] [address]- 2789 Sep, [facility] [address] [id number] [place] [address]- 6309 August, [facility] [address] [id number] [place] [address]- 4761 August, [facility] [address] [id number] [place] [address]- 1420 August, [facility] [address] [id number] [place] [address]- 0283 August, [facility] [address] [id number] [place] [address]- 4963 August, [facility] [address] [id number] [place] [address]- 5098 Jul, [facility] [address] [id number] [place] [address]- 5901 Jul, [facility] [address] [id number] [place] [address]- 7418 Jul, [facility] [address] [id number] [place] [address]- 2969 Jul, [facility] [address] [id number] [address]- 4469 Jul, [facility] [address] [id number] [place] [address]- 5147 Jul, [facility] [place] [facility] [address] [id number] [place] [address]- 8300 Jul, [facility] [address] [id number] [place] [address]- 6078 Jul, [facility] [address] [id number] [address]- 0416 Jul, [facility] [address] [id number] [place] [address] Jul, [facility] [address] [id number] [place] [id number] Jun, [facility] [address] [id number] [place] [address] Jun, [facility] [address] [id number] [place] [address] Jun, [facility] [address] [id number] [place] [address] Jun, [facility] [address] [id number] [place] [address] Jun, [facility] [address] [id number] [place] [address] May, [facility] [address] [id number] [place] [address] May, [facility] [address] [id number] [place] [address] May, [facility] [address] [id number] [place] [address] Apr, [facility] [address] [id number] [address] Apr, [facility] [address] [id number] [place] [address] Apr, [facility] [address] [id number] [place] [address] Apr, [facility] [address] [id number] [place] [address] Apr, [facility] [address] [id number] [place] [address] Apr, [facility] [address] [id number] [place] [address] Mar, [facility] [address] [id number] [place] [address] Mar, [facility] [place] [facility] [address] [id number] [place] [address] Mar, [facility] [address] [id number] [place] [address] Mar, [facility] [place] [facility] [address] [id number] [place] [address] Feb, [facility] [address] [id number] [place] [address] Feb, [facility] [place] [facility] [address] [id number] [place] [address] Feb, [facility] [place] [facility] [address] [id number] [place] [address] Feb, [facility] [address] [id number] [place] [address] Feb, [facility] [place] [facility] [address] [id number] [place] [address] Feb, [facility] [address] [facility] [id number] [place] [address] Feb, [facility] [place] [facility] [address] [id number] [place] [address] Feb, [facility] [place] [facility] [address] [id number] [place] [address] Feb, [facility] [place] [facility] [address] [id number] [place] [address] Feb, [facility] [place] [facility] [address] [id number] [place] [address] Feb, [facility] [place] [facility] [address] [id number] [place] [address] Feb, [facility] [place] [facility] [address] [id number] [place] [address] Feb, [facility] [place] [facility] [address] [id number] [place] [address] Feb, [facility] [place] [facility] [address] [id number] [place] [address] Feb, [facility] [place] [facility] [address] [id number] [place] [address] Feb, [facility] [place] [facility] [address] [id number] [place] [address] Jan, [facility] [place] [facility] [address] [id number] [place] [address] Jan, [facility] [place] [facility] [address] [id number] [place] [address] Jan, [facility] [place] [facility] [address] [id number] [place] [address] Jan, [facility] [place] [facility] [address] [id number] [place] [address] 30 Jan, 2012 [facility] [place] [facility] [address] [facility] [id number] [place] [address] Jan, [facility] [place] [facility] [address] [id number] [place] [address] Jan, [facility] [place] [facility] [address] [id number] [place] [address] 16 Jan, 2012 [facility] [place] [facility] [address] [id number] [place] [address] 16 Jan, 2012 [facility] [place] [facility] [address] [id number] [place] [address] 15 Jan, 2012 [facility] [place] [facility] [address] [facility] [id number] [address] 15 Jan, 2012 [facility] [place] [facility] [address] [id number] [address] Jan, [facility] [place] [facility] [address] [id number] [place] [address]46 26 Sep, 2011 [facility] [place] [facility] [address] [id number] [place] [address] 2546 26 Sep, 2011 [facility] [place] [facility] [address] [id number] [place] [address] 24 Sep, 2011 [facility] [place] [facility] [address] [id number] [place] [address] 23 Sep, 2011 [facility] [place] [facility] [address] [id number] [place] [address], [place] [address]36 22 Sep, 2011 [facility] [place] [facility] [address] [id number] [place] [address] 69[address] 21 Sep, 2011 [facility] [address] [id number] [place] [address] 20 Sep, 2011 [facility] [place] [facility] [address] [id number] [place] [address] 2544 20 Sep, 2011 [facility] [place] [facility] [address] [id number] [place] [address] 79[address] 07 Sep, 2011 [facility] [place] [facility] [address] [id number] [place] [address] 6626 06 Sep, 2011 [facility] [place] [facility] [address] [id number] [place] [address] 2544 06 Sep, 2011 [facility] [place] [facility] [address] [id number] [address] 05 Sep, 2011 [facility] [place] [facility] [address] [id number] [place] [address] 1444 23 Nov, 2011 [facility] [place] [facility] [address] [id number] [place] [address]056 17 Nov, 2011 [facility] [place] [facility] [address] [id number] [place] [address]- 8097 13 Nov, 2011 [facility] [place] [facility] [address] [id number] [place] [address]329 Nov, [facility] [place] [facility] [address] [id number] [facility] [place] [address]- 8[address] Nov, [facility] [place] [facility] [address] [id number] [place] [address] 2546 Nov, [facility] [place] [facility] [address] [id number] [place] [address]- 1486 Nov, [facility] [place] [facility] [address] [id number] [place] [address]- 6[address] Nov, [facility] [place] [facility] [address] [id number] [place] [address] 65[address] Oct, [facility] [place] [facility] [address] [id number] [place] [address] 3705 Oct, [facility] [place] [facility] [address] [id number] [place] [address]- 0024 Oct, [facility] [place] [facility] [address] [id number] [place] [address]- 8[address] Oct, [facility] [place] [facility] [address] [id number] [place] [address] 6[address] Oct, [facility] [place] [facility] [address] [id number] [place] [address]- 3851 Oct, [facility] [place] [facility] [address] [id number] [place] [address]- [address] Oct, [facility] [place] [facility] [address] [id number] [place] [address] Sep, [facility] [place] [facility] [address] [id number] [place] [address]- [address]26 Sep, [facility] [place] [facility] [address] [id number] [place] [address] 99[address] August, [facility] [place] [facility] [address] [id number] [place] [address] August, [facility] [address] [id number] [place] [address]- 8409 August, [facility] [place] [facility] [address] [id number] [place] [address]- 9872 August, [facility] [place] [facility] [address] [id number] [place] [address]- 80[address] Jul, [facility] [place] [facility] [address] [id number] [place] [address]- 8[address] Jul, [facility] [place] [facility] [address] [id number] [place] [address] 8900 Jul, [facility] [place] [facility] [address] [id number] [place] [address]- 5[address] Jul, [facility] [place] [facility] [address] [id number] [place] [address]- 8917 Jul, [facility] [place] [facility] [address] [id number] [place] [address]- 1318 Jul, [facility] [place] [facility] [address] [id number] [place] [address]- 3077 Jul, [facility] [place] [facility] [address] [id number] [place] [address]- 2117 Jul, [facility] [place] [facility] [address] [id number] [place] [address] 0689 Jul, [facility] [place] [facility] [address] [id number] [address] 23 Jun, 2011 [facility] [place] [facility] [address] [id number] [place] [address]- 5851 19 Jun, 2011 [facility] [place] [facility] [address] [id number] [place] [address]- 5617 15 Jun, 2011 [facility] [place] [facility] [address] [id number] [place] [address]- 9929 14 Jun, 2011 [facility] [place] [facility] [address] [id number] [place] [address]- 9837 Jun, [facility] [address] [id number] [place] [address]- 3176 Jun, [facility] [place] [facility] [address] [id number] [place] [address] 2546 Jun, [facility] [address] [id number] [place] [address] 8[address] May, [facility] [place] [facility] [address] [id number] [place] [address] 2546 May, [facility] [address] [id number] [place] [address]- 4526 May, [facility] [address] [id number] [place] [address]- 2546 May, [facility] [address] [id number] [place] [address] 2546 May, [facility] [address] [id number] [place] [address]- 3906 Apr, [facility] [address] [id number] [place] [address]- 1236 Apr, [facility] [address] [facility] [id number] [place] [address]- 5516 Apr, [facility] [address] [id number] [place] [address] 2546 Apr, [facility] [address] [id number] [place] [address] 2546 Apr, [facility] [place] [facility] [address] [id number] [place] [address]- 5686 Mar, [facility] [place] [facility] [address] [id number] [place] [address] 2546 Mar, [facility] [address] [id number] [place] [address]- 1701 Mar, [facility] [place] [facility] [address] [id number] [place] [address]- 3543 Mar, [facility] [place] [facility] [address] [id number] [place] [address] Mar, [facility] [place] [facility] [address] [id number] [place] [address]- 7943 Mar, [facility] [place] [facility] [address] [id number] [place] [address]- 9408 Mar, [facility] [place] [facility] [address] [id number] [place] [address] Feb, [facility] [place] [facility] [address] [id number] [place] [address]- 5939 Feb, [facility] [place] [facility] [address] [id number] [place] [address]- 6860 Feb, [facility] [place] [facility] [address] [id number] [place] [address]- 3120 Feb, [facility] [place] [facility] [address] [id number] [place] [address]- 4161 Jan, [facility] [place] [facility] [address] [id number] [place] [address]- 2732 Jan, [facility] [place] [facility] [address] [id number] [place] [address]- 6556 Jan, [facility] [place] [facility] [address] [id number] [place] [address]- 5294 Jan, [facility] [place] [facility] [address] [id number] [place] [address]- 2451 Nov, [facility] [place] [facility] [address] [id number] [place] [address]- 4717 Mar, [facility] [place] [facility] [address] [id number] [place] [address]- 2408 Mar, [facility] [place] [facility] [address] [id number] [address]- 2546 Mar, [facility] [id number] [address] Mar, [facility] [address] [id number] [address]- 2546 Mar, [facility] [id number] [address]- 2546 Mar, [facility] [id number] [place] [address]- 7615 Feb, [facility] [id number] [place] [address] 0979 Feb, [facility] [id number] [place] [address]- 5226 Jan, [facility] [id number] [place] [address]- 5756 Jan, [facility] [id number] [address]- [address]99 Jan, IMMUNIZATIONS No Known Immunizations SOCIAL HISTORY Never Assessed REASON FOR VISIT Medication question PLAN OF CARE VITAL SIGNS MEDICATIONS Medication Instructions Dosage Frequency Start Date End Date Duration Status Mirabegron ER 25 MG Orally Once a day 1 tablet 24h August, Sep, 30 day(s) Active RESULTS No Results PROCEDURES [...] 2020 & 2007 Surgical History Bladder surgery 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
--- OUTSIDE RECORDS SUMMARY | 2018-05-29 08:45 | XMS REPORT ---
Author Author KEIRA FORD [facility] Address [address] [place] [address] Care Team Providers Care Car Porter Name Role Phone KEIRA FORD Unavailable PROBLEMS Type Condition ICD9-CM Code [id number] Code Onset Dates Condition Status SNOMED Code Problem Long-term use of high-risk medication Z79.899 Active 485671982 Problem Abnormal chest CT R93.8 Active 142152031 Problem Generalized anxiety disorder F41.1 Active 65194502 Problem Low back pain M54.5 Active 939324045 Problem Dysthymic disorder F34.1 Active 63767841 Problem Depressed F32.9 Active 65950515 Problem Coronary artery disease involving [place] coronary artery of [place] heart, angina presence unspecified I25.10 Active 7413607793307 Problem Hypothyroid E03.9 Active 59935731 Problem Insomnia G47.00 Active 155341695 Problem Vitamin D deficiency E55.9 Active 76910122 Problem Asthma J45.909 Active 178172788 Problem Chronic kidney disease, unspecified N18.9 Active 033357498 Problem Palpitations R00.2 Active 95393478 Problem Anemia in chronic kidney disease D63.1 Active 319143107170729 Problem Primary osteoarthritis of left knee M17.12 Active 459569137 Problem Bipolar disorder, current episode manic without psychotic features F31.10 Active 981976884 Problem Restless leg syndrome G25.81 Active 40728195 Problem Seasonal allergic rhinitis due to pollen J30.1 Active 01392647 Problem Functional diarrhea K59.1 Active 18032477 Problem Chronic kidney disease, stage 4 (severe) N18.4 Active 372840984 Problem Restless leg G25.81 Active 29317834 Problem Mood disorder F39 Active 56270300 Problem Degenerative tear of medial meniscus of left knee M23.204 Active 903354440 Problem Body mass index (BMI) of 40.0-44.9 in adult Z68.41 Active 666638894 Problem Stage 3 chronic kidney disease N18.3 Active 030586843 Problem Asthma with acute exacerbation in adult J45.901 Active 193847687 Problem Other seasonal allergic rhinitis J30.2 Active 212524792 Problem History of colon polyps Z86.010 Active 385396457 Problem History of anemia Z86.2 Active 094633953 Problem Fibromyalgia M79.7 Active 500925256 Problem Essential (primary) hypertension I10 Active 45216405 Problem Hypokalemia E87.6 Active 53281855 Problem Mixed stress and urge urinary incontinence N39.46 Active 047366620 ALLERGIES No Information ENCOUNTERS Encounter Location Date Diagnosis [facility] [address] [address]- 2643 Nov, [place] [address] 34183- 0768 Nov, [place] [address] 33862- 5964 Nov, [facility] [address] 01459- 5393 Nov, Complicated UTI (urinary tract infection) N39.0 [facility] [address] 52621- 8794 Oct, [facility] [address] [place] [id number] [place] [address] 24627- 0570 Oct, Generalized anxiety disorder F41.1 and Major depressive disorder, recurrent episode with anxious distress F33.9 [facility] [address] [address] [id number] [place] [address] 02562- 2196 Oct, [facility] [address] 20266- 1725 Oct, Fibromyalgia M79.7 [facility] [address] [id number] [place] [address] 19646- 4790 Sep, Restless leg syndrome G25.81 and Restless leg G25.81 [facility] [address] 74016- 8434 Sep, [place] [address] [place] [id number] [place] [address] 76466- 0775 Sep, Seasonal allergic rhinitis due to pollen J30.1 ; Screening for breast cancer Z12.31 ; Chest pain at rest R07.9 ; Restless leg syndrome G25.81 ; Essential (primary) hypertension I10 and Depressed F32.9 [place] [address] [address]65- 1996 August, Fibromyalgia M79.7 [place] [address] 82431- 4910 August, [place] [address] 62781- 1297 August, [place] [address] 22579- 5685 August, Abnormal chest CT R93.8 [place] [address] 05022- 2765 August, Generalized anxiety disorder F41.1 and Major depressive disorder, recurrent episode with anxious distress F33.9 [place] [address] 83143- 2489 August, Abnormal chest CT R93.8 [place] [address] 56269- 0771 Jul, [place] [address] 68227- 6720 Jul, Chronic kidney disease, stage 4 (severe) N18.4 [place] [address] 97145- 6550 Jul, [place] [address] 90418- 3731 Jul, Restless leg G25.81 ; Mixed stress and urge urinary incontinence N39.46 and Fibromyalgia M79.7 [place] [address] [place] [address]- 8578 Jul, Chronic kidney disease, stage 4 (severe) N18.4 [facility] [address] [id number] [place] [address] 37825- 2478 Jun, Orthostatic hypotension I95.1 ; Chronic kidney disease, stage 4 (severe) N18.4 ; Chest wall discomfort R07.89 and Body mass index (BMI) of 40.0-44.9 in adult Z68.41 [facility] [address] [place] [id number] [place] [address] 04332- 3621 Jun, [facility] [address] [id number] [place] [address] 65383- 8538 Jun, Orthostatic hypotension I95.1 [place] [address] [place] [id number] [place] [address] 60118- 5019 Jun, [facility] [address] [id number] [place] [address] 28837 -3909 Jun, Orthostatic hypotension I95.1 ; Dysuria R30.0 and Acute cystitis without hematuria N30.00 [facility] [address] [id number] [place] [address] 88006- 2949 Jun, [facility] [address] [place] [id number] [place] [address] 09296- 7800 Jun, Chronic kidney disease, stage 4 (severe) N18.4 [place] [address] [place] [id number] [place] [address] 21189- 3149 Jun, Fibromyalgia M79.7 [facility] [address] [place] [id number] [place] [address] 98310- 9866 Jun, [facility] [address] [place] [id number] [place] [address] 42442- 2185 Jun, [facility] [address] [place] [id number] [place] [address] 69566- [address] May, [address] R93.8 and Stage 3 chronic kidney disease N18.3 [facility] [address] [address] May, Chronic kidney disease, stage 4 (severe) N18.4 [facility] [address] [place] [address] 82043- 7204 May, Chronic kidney disease, stage 4 (severe) N18.4 [facility] [address] [place] [address] 58721- [address] May, [address] R93.8 [facility] [address] [place] [address] 73678- 9721 May, [facility] [address] [place] [id number] [place] [address] 72552- 9331 May, [facility] [address] [place] [address] 34301- 4174 May, Generalized anxiety disorder F41.1 and Major depressive disorder, recurrent episode with anxious distress F33.9 [facility] [address] [address]- 1505 May, Mood disorder F39 [facility] [address] [place] [address] 66056- 1147 Apr, [facility] [address] [address]- 7234 Apr, Infected skin lesion L08.9 and Muscle strain of right shoulder region, initial encounter S46.911A [facility] [address] [place] [id number] [place] [address] 31240- 9041 Apr, Generalized anxiety disorder F41.1 and Major depressive disorder, recurrent episode with anxious distress F33.9 [facility] [address] [place] [address] 26321- 0462 Apr, [facility] [address] [place] [address] 99404- 0567 Apr, Recent urinary tract infection Z87.440 and Hypothyroid E03.9 [facility] [address] [place] [address] 64497- 8796 Apr, Generalized anxiety disorder F41.1 and Major depressive disorder, recurrent episode with anxious distress F33.9 [place] [address] [place] [address] 65099- 5127 Apr, Recent urinary tract infection Z87.440 [place] [address] [place] [id number] [place] [address] 37231- 5196 Mar, [facility] [address] [place] [id number] [place] [address] 57766 -4338 Mar, Dysuria R30.0 ; Acute cystitis without hematuria N30.00 and BMI 40.0-44.9, adult Z68.41 [place] [address] [place] [id number] [place] [address] 79314- 0951 Mar, [place] [address] [place] [id number] [place] [address] 52051- 8567 Mar, [place] [address] [place] [id number] [place] [address] 46538- 4800 Mar, Generalized anxiety disorder F41.1 and Major depressive disorder, recurrent episode with anxious distress F33.9 [place] [address] [place] [address] 08810- 1930 Feb, Conjunctivitis, bacterial H10.9 [place] [address] [place] [id number] [place] [address] 99642- 3752 Feb, [facility] [address] [place] [address] 92753 -0162 Feb, Conjunctivitis, bacterial H10.9 [place] [address] [place] [address] 82614- 5207 Feb, [facility] [address] [place] [address] 64504 -4167 Feb, Dysuria R30.0 ; Acute cystitis N30.00 and BMI 40.0-44.9, adult Z68.41 [place] [address] [place] [id number] [place] [address] 06531- 6868 Feb, [place] [address] [place] [id number] [place] [address] 12118- 5423 Feb, Generalized anxiety disorder F41.1 and Major depressive disorder, recurrent episode with anxious distress F33.9 [place] [address] [place] [id number] [place] [address] 33062- 7629 Feb, Mood disorder F39 and BMI 40.0-44.9, adult Z68.41 [place] [address] 79234- 1562 Jan, [place] [address] [place] [id number] [place] [address] 29365- 4866 Jan, [place] [address] [place] [id number] [place] [address] 59524- 5771 Jan, Hypothyroid E03.9 [place] [address] [place] [id number] [place] [address] 51493- 7161 Jan, [place] [address] [place] [id number] [place] [address] 83460- 7626 Jan, Chronic kidney disease, unspecified N18.9 ; Hypokalemia E87.6 ; Essential (primary) hypertension I10 ; Fibromyalgia M79.7 ; Coronary artery disease involving [place] coronary artery of [place] heart, angina presence unspecified I25.10 ; Hypothyroid E03.9 and Encounter for immunization Z23 [facility] [address] [place] [id number] [place] [address] 88076- 8044 Jan, Hypothyroid E03.9 [place] [address] [place] [id number] [place] [address] 42685- 4579 Jan, [facility] [address] [place] [id number] [place] [address] 34620- 9679 Dec, Vitamin D deficiency E55.9 [facility] [address] [place] [address] 92212- 8076 28 Dec, 2016 Primary osteoarthritis of left knee M17.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 [facility] [address] [place] [address] 32801 2546 19 Dec, 2016 Fibromyalgia M79.7 [facility] [address] [id number] [place] [address] 69345 2546 18 Dec, 2016 Mood disorder F39 [place] [address] [place] [id number] [place] [address] 94163 2546 13 Dec, 2016 [place] [address] [place] [id number] [place] [address] 34356- 2803 13 Dec, 2016 Generalized anxiety disorder F41.1 and Major depressive disorder, recurrent episode with anxious distress F33.9 [place] [address] [place] [id number] [place] [address] 25917- 1595 11 Dec, 2016 [place] [address] [place] [address] 90009 2544 08 Dec, 2016 Streptococcal meningitis G00.2 [place] [address] [place] [id number] [place] [address] 12817 2546 07 Dec, 2016 Streptococcal meningitis G00.2 [place] [address] [address] 2546 07 Dec, 2016 [facility] [address] [place] [id number] [place] [address] 70082 2546 06 Dec, 2016 [facility] [address] [place] [address] 84489 2546 06 Dec, 2016 Streptococcal meningitis G00.2 [facility] [address] [place] [address] 59713- 2541 06 Dec, 2016 Major depressive disorder, recurrent episode with anxious distress F33.9 [facility] [address] [place] [address] 80123 0698 Nov, Fever, unspecified fever cause R50.9 [facility] [address] [place] [address] 69638- 1093 Nov, [facility] [address] [place] [id number] [place] [address] 36022- 2357 Nov, Hypothyroid E03.9 [facility] [address] [place] [id number] [place] [address] 77583- 4080 Nov, Generalized anxiety disorder F41.1 and Major depressive disorder, recurrent episode with anxious distress F33.9 [facility] [address] [place] [id number] [place] [address] 06392- 9724 Nov, [facility] [address] [place] [id number] [place] [address] [id number] Oct, Dental examination Z01.20 [facility] [address] [place] [id number] [place] [address] 40716- 3081 Oct, Generalized anxiety disorder F41.1 and Major depressive disorder, recurrent episode with anxious distress F33.9 [facility] [address] [place] [id number] [place] [address] 89233- 4511 Oct, Chronic kidney disease, stage 4 (severe) N18.4 [facility] [address] [id number] [place] [address] 84648- 9176 Oct, [facility] [address] [id number] [place] [address] 74933- 4773 Oct, Fibromyalgia M79.7 [facility] [address] [place] [id number] [place] [address] 29073- 2643 Oct, [facility] [address] [place] [id number] [place] [address] 70134- 0978 Oct, Generalized anxiety disorder F41.1 ; Major depressive disorder, recurrent episode with anxious distress F33.9 and Bipolar disorder, current episode manic without psychotic features F31.10 [facility] [address] [place] [address] 16051- 8055 Sep, [place] [address] [address]- 8088 Sep, [place] [address] [place] [id number] [place] [address] 83978- 9622 Sep, Vitamin D deficiency E55.9 [place] [address] [place] [id number] [place] [address] 11381- 2140 Sep, Vitamin D deficiency E55.9 [place] [address] [place] [id number] [place] [address] 04846- 7706 Sep, [place] [address] [place] [id number] [place] [address] 95136- 4701 Sep, Chronic kidney disease, stage 4 (severe) N18.4 ; Hypothyroid E03.9 ; Restless leg G25.81 ; Fibromyalgia M79.7 ; Essential ( primary) hypertension I10 ; Vitamin D deficiency E55.9 ; Dyspepsia R10.13 ; Anemia in chronic kidney disease D63.1 ; Chronic kidney disease, unspecified N18.9 ; Coronary artery disease involving [place] coronary artery of [place] heart , angina presence unspecified I25.10 ; Screening breast examination Z12.39 and Low back pain M54.5 [place] [address] [place] [address] 73894- 1307 August, Generalized anxiety disorder F41.1 and Major depressive disorder, recurrent episode with anxious distress F33.9 [place] [address] [place] [address] 23528- 0002 August, Generalized anxiety disorder F41.1 and Major depressive disorder, recurrent episode with anxious distress F33.9 [place] [address] [place] [address] 28509- 2074 August, Fibromyalgia M79.7 [place] [address] [place] [id number] [place] [address] 29243- 7025 Jul, Generalized anxiety disorder F41.1 and Major depressive disorder, recurrent episode with anxious distress F33.9 [place] [address] [place] [id number] [place] [address] 61267- 4915 Jul, Fibromyalgia M79.7 [place] [address] [place] [id number] [place] [address] 10535- 2688 Jul, Generalized anxiety disorder F41.1 [place] [address] [place] [id number] [place] [address] 56250- 3174 May, [place] [address] 00096- 6228 May, Hypothyroid E03.9 [place] [address] [place] [id number] [place] [address] 77152- 7695 May, Chronic kidney disease, stage 4 (severe) N18.4 ; Hypothyroid E03.9 ; Restless leg G25.81 ; Fibromyalgia M79.7 ; Essential ( primary) hypertension I10 ; Vitamin D deficiency E55.9 ; Dyspepsia R10.13 ; Acute non-recurrent maxillary sinusitis J01.00 ; Anemia in chronic kidney disease D63.1 ; Chronic kidney disease, unspecified N18.9 and Coronary artery disease involving [place] coronary artery of [place] heart, angina presence unspecified I25.10 [place] [address] [place] [id number] [place] [address] 08965- 2579 May, Vitamin D deficiency, unspecified E55.9 [place] [address] [place] [id number] [place] [address] 82486- 3233 May, Generalized anxiety disorder F41.1 and Major depressive disorder, recurrent episode with anxious distress F33.9 [place] [address] [place] [address] [id number] [place] [address] 72170- 8705 Apr, Pain in right knee M25.561 and Pain in left knee M25.562 [place] [address] [address] [id number] [place] [address] 94915- 5384 Apr, [place] [address] [place] [id number] [place] [address] 01968- 6127 Apr, [place] [address] [place] [place] [address] 16408- 6735 Apr, [facility] [address] [id number] [place] [address] 69660- 3825 Mar, Generalized anxiety disorder F41.1 and Major depressive disorder, recurrent episode with anxious distress F33.9 [place] [address] [address] [id number] [place] [address] 90388- 4805 Mar, Generalized anxiety disorder F41.1 and Major depressive disorder, recurrent episode with anxious distress F33.9 [place] [address] [id number] [place] [address] 51976- 7738 Mar, [place] [address] 58753- 4408 Mar, [place] [address] [address] [id number] [place] [address] 84680- 0144 Mar, [place] [address] [id number] [place] [address] 47894- 5973 Mar, Asthma J45.909 and Fibromyalgia M79.7 [place] [address] [place] [address] [id number] [place] [address] 74958- 8682 Mar, Chronic kidney disease, stage 4 (severe) N18.4 ; Vitamin D deficiency E55.9 and Essential (primary) hypertension I10 [place] [address] [id number] [place] [address] 32462- 5492 Feb, [place] [address] [id number] [place] [address] 11505- 5965 Feb, Dysuria R30.0 ; Mixed stress and urge urinary incontinence N39.46 ; Fibromyalgia M79.7 and Chronic kidney disease, stage IV (severe) N18.4 [place] [address] [id number] [place] [address] 64177- 8341 Feb, Chronic kidney disease, stage 4 (severe) N18.4 [place] [address] [id number] [place] [address] 35562- 5028 Feb, Chronic kidney disease, stage 4 (severe) N18.4 [place] [address] [id number] [place] [address] 71033- 5305 Feb, [facility] [id number] [place] [address] 45959- 4913 Feb, Vitamin D deficiency, unspecified E55.9 [place] [address] 35062- 1438 Jan, [place] [address] [id number] [place] [address] 41081- 1935 Jan, [place] [address] [id number] [place] [address] 01356- 9467 Dec, [place] [address] [id number] [place] [address] 87207- 3796 Dec, Chronic kidney disease, stage 4 (severe) N18.4 [place] [address] [id number] [place] [address] 25630- 7432 Dec, Dysthymic disorder F34.1 and Generalized anxiety disorder F41.1 [place] [id number] [place] [address] 54391- 3844 Dec, [place] [id number] [place] [address] 59647- 7842 Dec, [place] [id number] [place] [address] 94179- 1531 Dec, Dysthymic disorder F34.1 and Generalized anxiety disorder F41.1 [place] [id number] [place] [address] 62154- 8099 Dec, Dysuria R30.0 ; Chronic kidney disease, stage 4 (severe) N18.4 ; Hypertension I10 ; Dyspepsia R10.13 ; Yeast dermatitis B37.2 ; Palpitations R00.2 ; Hypothyroid E03.9 ; Functional diarrhea K59.1 and Other seasonal allergic rhinitis J30.2 [facility] [address] [place] [address] 87909 -8924 Dec, [facility] [id number] [place] [address] 51801 -6920 Nov, Dysuria R30.0 and Stress incontinence N39.3 [facility] [id number] [place] [address] 83627- 3220 Nov, [place] [id number] [place] [address] 57021- 1489 Nov, [place] [id number] [place] [address] 40108- 0477 Nov, Osteoarthritis of knees, bilateral M17.0 [place] [id number] [place] [address] 83605- 3385 Nov, Dysthymic disorder F34.1 and Generalized anxiety disorder F41.1 [place] [id number] [place] [address] 88663- 6219 Nov, [place] [id number] [place] [address] 01494- 8284 Nov, [place] [id number] [place] [address] 29793- 9809 Nov, Urgency of urination R39.15 [place] [id number] [place] [address] 69693- 8277 Nov, [place] [id number] [place] [address] 61143- 0632 Nov, Chronic kidney disease, stage 4 (severe) N18.4 [place] [id number] [place] [address] 76756- 4392 Oct, Hypertension I10 ; Coronary artery disease involving [place] coronary artery of [place] heart, angina presence unspecified I25.10 ; Palpitations R00.2 ; Hypothyroid E03.9 ; Right foot pain M79.671 ; Functional diarrhea K59.1 and Other seasonal allergic rhinitis J30.2 [facility] [address] [address]- 3385 Oct, Dysthymic disorder F34.1 and Generalized anxiety disorder F41.1 [facility] [address] [address] Sep, [facility] [id number] [place] [id number] Sep, [facility] [id number] [place] [phone] Sep, [facility] [id number] [place] [phone] Sep, [facility] [id number] [place] [phone] Sep, [facility] [id number] [place] [address] Sep, Dysthymic disorder F34.1 and Generalized anxiety disorder F41.1 [facility] [id number] [place] [address] Sep, Asthma with acute exacerbation in adult J45.901 ; Dysuria R30.0 ; Chronic kidney disease, stage 4 (severe) N18.4 and History of anemia Z86.2 [place] [id number] [place] [address] Sep, Generalized anxiety disorder F41.1 and Dysthymic disorder F34.1 [facility] [id number] [place] [address] August, Screening breast examination Z12.39 and Acute recurrent maxillary sinusitis J01.01 [facility] [id number] [place] [address]- [address] August, Osteoarthritis of knees, bilateral M17.0 [facility] [id number] [place] [address] August, Chronic kidney disease, stage 4 (severe) N18.4 ; Acute non- recurrent maxillary sinusitis J01.00 ; Urinary problem R39.89 ; Bowel habit changes R19.4 ; Functional diarrhea K59.1 and History of colon polyps Z86.010 [facility] [id number] [place] [address] 22831- 4926 29 Jul, 2015 Dysthymic disorder F34.1 and Generalized anxiety disorder F41.1 [place] [id number] [place] [address] 44488- 8216 Jul, [place] [id number] [place] [address] 59461- 6241 Jul, Dysthymic disorder F34.1 ; Generalized anxiety disorder F41.1 and long-term use of drug Z79.899 [place] [id number] [place] [address] 00843- 5773 Jul, [place] [id number] [place] [address] 52025- 3325 Jun, [facility] [id number] [place] [address] 56971- 6147 Jun, [place] [id number] [place] [address] 37992- 3366 May, [place] [id number] [place] [address] 98478- 0390 May, Dysthymic disorder F34.1 and Generalized anxiety disorder F41.1 [place] [id number] [place] [address] 62678- 0939 Apr, Kidney disease N28.9 [place] [id number] [place] [address] 45760- 2701 Apr, Generalized anxiety disorder F41.1 and Dysthymic disorder F34.1 [address] [id number] [place] [address] 2499 Apr, Chronic kidney disease, stage 4 (severe) N18.4 [facility] [id number] [place] [address] 91112- 7932 Apr, Generalized anxiety disorder F41.1 ; Major depression, recurrent F33.9 and Sleep disturbance G47.9 [place] [id number] [place] [address] 31277- 7796 Mar, Generalized anxiety disorder F41.1 and Dysthymic disorder F34.1 [address] [address] 04382- 4965 Mar, Generalized anxiety disorder F41.1 ; Dysthymic disorder F34.1 and Insomnia G47.00 [place] [address] 39693- 1879 Mar, [place] [address] 85732- 2788 Mar, [place] [address] 43233- 6936 Mar, Osteoarthritis of knees, bilateral M17.0 [address] [address] 80543- 4604 Mar, Hypertension I10 ; Hypothyroid E03.9 ; Dysthymic disorder F34.1 ; Chronic kidney disease, stage 4 (severe) N18.4 and Nausea & vomiting R11.2 [place] [id number] [place] [address] 93034- 1089 Mar, Generalized anxiety disorder F41.1 ; Dysthymic disorder F34.1 and Insomnia G47.00 [place] [id number] [place] [address] 20352- 5557 Mar, Dehydration E86.0 ; Chronic kidney disease, stage 4 (severe ) N18.4 and Nausea & vomiting R11.2 [facility] [id number] [place] [address] 06267 -5665 Mar, Gastroenteritis K52.9 [facility] [id number] [place] [address] 46660363- 2246 Mar, [address] [address] 89005- 2928 Mar, [place] [address] 69337- 9820 Feb, Dysthymic disorder F34.1 and Generalized anxiety disorder F41.[address] 47729- 1341 Jan, UTI (urinary tract infection) N39.0 ; Asthma J45.909 ; Coronary artery disease involving [place] coronary artery of [place] heart, angina presence unspecified I25.10 ; Hypertension I10 ; Hypothyroid E03.9 ; Vitamin D deficiency E55.9 ; Insomnia G47.00 ; Palpitations R00.2 ; Depressed F32.9 ; Restless leg G25.81 and Anxiety F41.[address] 19494- 6319 Jan, Dysthymic disorder F34.1 and Generalized anxiety disorder F41.[address] 28979- 4240 Jan, [place] [id number] [place] [address] 92244- 6919 Dec, [place] [id number] [place] [address] 77135- 9363 Dec, Alkalosis 276.3 ; Chronic kidney disease, Stage IV (severe) 585.4 ; Hyperpotassemia 276.7 ; Secondary hyperparathyroidism, renal 588.81 ; Proteinuria 791.0 ; Unspecified vitamin D deficiency 268.9 ; Anemia in chronic kidney disease 285.21 ; Other and unspecified hyperlipidemia 272.4 ; Hypertension, essential, benign 401.1 and Chronic kidney disease (CKD), stage III (moderate) 585.3 [address] [id number] [place] [address] 66471- 6163 16 Dec, 2014 [address] [id number] [address]- 7128 16 Dec, 2014 Depressive disorder, not elsewhere classified 311 and Generalized anxiety disorder 300.02 [place] [id number] [place] [address] 89745- 5850 Dec, [id number] [place] [address] 24282- 8955 Dec, [id number] [place] [address] 96335- 2078 Nov, Depressive disorder, not elsewhere classified 311 and Generalized anxiety disorder 300.[address] 11416- 0837 Nov, Arthritis of both knees 716.96 [id number] [place] [address] 51621- 7673 Nov, PAF (paroxysmal atrial fibrillation) 427.31 ; CAD (coronary artery disease) 414.00 ; Chest pain 786.50 and Chronic kidney disease (CKD) stage G4/A1, severely decreased glomerular filtration rate (GFR) between 15-29 mL/min/1.73 square meter and albuminuria creatinine ratio less than 30 mg/g 585.4 [id number] [place] [address] 82455- 2354 Oct, Coronary atherosclerosis of unspecified type of vessel, [place] or graft 414.00 ; Chronic kidney disease, Stage IV (severe) 585.4 ; Hypertension 401.9 and Edema 782.3 [id number] [place] [address] 94489- 6973 Oct, Depressive disorder, not elsewhere classified 311 and Generalized anxiety disorder 300.02 [id number] [place] [address] 48283- 7577 Oct, Depressive disorder, not elsewhere classified 311 and Generalized anxiety disorder 300.02 [id number] [place] [address] 34476- 9964 Oct, [id number] [place] [address] 48441- 4316 Oct, [facility] [address] 74092- 5003 Sep, [facility] [id number] [place] [address] 16987- 1418 Sep, Chronic kidney disease, Stage IV (severe) 585.4 [facility] [address] 10950- 4920 Sep, [facility] [address] 57865- 0372 Sep, Coronary atherosclerosis of unspecified type of vessel, [place] or graft 414.00 ; Hypertension 401.9 ; Edema 782.3 and Hypothyroidism 244.9 [place] [address] 95271- 8833 Sep, Coronary atherosclerosis of unspecified type of vessel, [place] or graft 414.00 ; Hypertension 401.9 ; Fibromyalgia 729.1 ; Edema 782.3 ; Hypothyroidism 244.9 and Anemia 285.9 [address] [address] 85230- 2496 Sep, Anxiety disorder, unspecified 300.00 and Depressive disorder , not elsewhere classified 311 [place] [id number] [place] [address] 80167- 7614 Sep, [facility] [address] 49413- 6723 August, Generalized anxiety disorder 300.02 [facility] [id number] [place] [address] 11019- 4132 August, Closed fracture of lateral malleolus 824.2 [facility] [id number] [place] [address] 56755- 2589 Jul, [facility] [id number] [place] [address] 01304- 3609 Jul, [facility] [place] [facility] [address] [id number] [place] [address]- 4407 Jun, 2014 [facility] [place] [facility] [address] [id number] [place] [address]- 5236 Jun, 2014 [facility] [place] [facility] [address] [id number] [place] [address]- 1613 Jun, 2014 [facility] [place] [facility] [address] [id number] [place] [address]- 0586 Jun, 2014 [facility] [place] [facility] [address] [id number] [place] [address]- 9058 Jun, [facility] [place] [facility] [address] [id number] [place] [address]- 1150 Jun, 2014 [facility] [place] [facility] [address] [facility] [id number] [place] [address]- 5138 19 May, 2014 [facility] [place] [facility] [address] [facility] [id number] [place] [address]- 2414 19 May, 2014 [facility] [place] [facility] [address] [facility] [id number] [place] [address]- 3154 18 May, 2014 [facility] [place] [facility] [address] [facility] [id number] [place] [address]- 2104 18 May, 2014 [facility] [place] [facility] [address] [facility] [id number] [place] [address]- 3072 16 May, 2014 [facility] [place] [facility] [address] [facility] [id number] [place] [address]- 7352 16 May, 2014 [facility] [place] [facility] [address] [facility] [id number] [place] [address]- 4936 13 May, 2014 [facility] [place] [facility] [address] [id number] [place] [address]- 9826 13 May, 2014 [facility] [place] [facility] [address] [facility] [id number] [place] [address]- 1651 10 May, 2014 [facility] [place] [facility] [address] [facility] [id number] [place] [address]- 5084 May, [facility] [place] [facility] [address] [id number] [place] [address]- 6142 Apr, [facility] [place] [facility] [address] [id number] [place] [address]- 6296 Apr, [facility] [place] [facility] [address] [facility] [id number] [place] [address]- 2298 Mar, [facility] [place] [facility] [address] [id number] [place] [address]- 7635 Mar, [facility] [place] [facility] [address] [id number] [place] [address]- 8856 Mar, [facility] [place] [facility] [address] [id number] [place] [address]- 0483 Mar, [facility] [place] [facility] [address] [facility] [id number] [place] [address]- 7103 Mar, [facility] [place] [facility] [address] [id number] [place] [address]- 8471 Mar, [facility] [place] [facility] [address] [id number] [place] [address]- 2256 Mar, [facility] [place] [facility] [address] [facility] [id number] [place] [address]- 2341 Feb, [facility] [place] [facility] [address] [id number] [place] [address]- 0635 Feb, [facility] [place] [facility] [address] [id number] [place] [address]- 6162 Feb, [facility] [place] [facility] [address] [id number] [place] [address]- 7309 Jan, [facility] [place] [facility] [address] [id number] [place] [address]- 5605 Jan, [facility] [place] [facility] [address] [facility] [id number] [place] [address]- 4262 Jan, [facility] [place] [facility] [address] [id number] [place] [address]- 3338 Jan, [facility] [place] [facility] [address] [id number] [place] [address]- 6383 Jan, [facility] [place] [facility] [address] [id number] [place] [address]- 4526 Jan, [facility] [place] [facility] [address] [id number] [place] [address]- 6477 Jan, [facility] [place] [facility] [address] [id number] [place] [address]- 3969 Jan, [facility] [place] [facility] [address] [id number] [place] [address]- 7311 Jan, [facility] [place] [facility] [address] [id number] [place] [address]- 7150 Jan, [facility] [place] [facility] [address] [id number] [place] [address]- 0870 Nov, [facility] [place] [facility] [address] [id number] [place] [address]- 9505 Nov, [facility] [place] [facility] [address] [id number] [place] [address]- 5450 Nov, [facility] [place] [facility] [address] [id number] [place] [address]- 7159 Oct, [facility] [place] [facility] [address] [id number] [place] [address]- 6666 Oct, [facility] [place] [facility] [address] [id number] [place] [address]- 3226 Oct, [facility] [place] [facility] [address] [id number] [place] [address]- 2292 Oct, [facility] [place] [facility] [address] [id number] [place] [address]- 0106 Oct, [facility] [place] [facility] [address] [id number] [place] [address]- 3925 Oct, [facility] [place] [facility] [address] [id number] [place] [address]- 3250 Oct, [facility] [place] [facility] [address] [id number] [place] [address]- 3695 Oct, [facility] [place] [facility] [address] [id number] [place] [address]- 7272 Oct, [facility] [place] [facility] [address] [id number] [place] [address]- 7004 Sep, [facility] [place] [facility] [address] [id number] [place] [address]- 6088 Sep, [facility] [place] [facility] [address] [id number] [place] [address]- 5902 Sep, [facility] [place] [facility] [address] [id number] [place] [address]- 0212 Sep, [facility] [place] [facility] [address] [id number] [place] [address]- 9612 Sep, [facility] [place] [facility] [address] [id number] [place] [address]- 6832 Sep, [facility] [place] [facility] [address] [id number] [place] [address]- 4624 Sep, [facility] [place] [facility] [address] [id number] [place] [address]- 8367 Sep, [facility] [place] [facility] [address] [id number] [place] [address]- 1807 Sep, [facility] [place] [facility] [address] [id number] [place] [address]- 3127 August, [facility] [place] [facility] [address] [id number] [place] [address]- 3606 August, [facility] [place] [facility] [address] [id number] [place] 1652 August, [facility] [place] [facility] [address] [id number] [place] [address]- 4716 August, [facility] [place] [facility] [address] [id number] [place] [address]- 5652 August, [facility] [place] [facility] [address] [id number] [place] [address]- 2461 August, [facility] [place] [facility] [address] [id number] [place] [address]- 7608 Jul, [facility] [place] [facility] [address] [id number] [place] [address]- 4223 Jul, [facility] [place] [facility] [address] [id number] [place] [address]- 7378 Jul, [facility] [place] [facility] [address] [id number] [place] [address]- 5874 Jul, [facility] [place] [facility] [address] [id number] [place] [address]- 2417 Jul, [facility] [place] [facility] [address] [id number] [place] [address]- 3862 Jul, [facility] [place] [facility] [address] [id number] [place] [address]- 8250 Jun, [facility] [place] [facility] [address] [facility] [id number] [place] [address]- 9429 Jun, [facility] [place] [facility] [address] [id number] [place] [address]- 3116 May, [facility] [place] [facility] [address] [id number] [place] [address]- 1408 May, [facility] [place] [facility] [address] [id number] [place] [address]- 9539 May, [facility] [place] [facility] [address] [id number] [place] [address]- 9560 May, [facility] [place] [facility] [address] [id number] [place] [address]- 6093 Apr, [facility] [place] [facility] [address] [id number] [place] [address]- 1515 Apr, [facility] [place] [facility] [address] [id number] [place] [address]- 1770 Mar, [facility] [place] [facility] [address] [id number] [place] 1960 Mar, [facility] [place] [facility] [address] [id number] [place] [address]- 4403 Mar, [facility] [place] [facility] [address] [id number] [place] [address]- 9729 Mar, [facility] [place] [facility] [address] [id number] [place] [address]- 8582 Mar, [facility] [place] [facility] [address] [id number] [place] [address]- 2164 Mar, [facility] [place] [facility] [address] [id number] [place] [address]- 6504 Feb, [facility] [place] [facility] [address] [id number] [place] [address]- 7495 Feb, [facility] [place] [facility] [address] [id number] [place] [address]- 5862 Feb, [facility] [place] [facility] [address] [id number] [place] [address]- 2130 Feb, [facility] [place] [facility] [address] [id number] [place] [address]- 7571 Feb, [facility] [place] [facility] [address] [id number] [place] [address]- 6055 Feb, [facility] [place] [facility] [address] [id number] [place] [address]- 5553 Jan, [facility] [place] [facility] [address] [id number] [place] 4081 Jan, [facility] [place] [facility] [address] [id number] [place] [address]- 7316 Jan, [facility] [place] [facility] [address] [id number] [place] [address]- 6069 Jan, [facility] [place] [facility] [address] [id number] [place] [address]- 7558 Jan, [facility] [place] [facility] [address] [id number] [place] [address]- 2167 Jan, [facility] [place] [facility] [address] [id number] [place] [address]- 5066 Dec, [facility] [place] [facility] [address] [id number] [place] [address]- 2026 Dec, [facility] [place] [facility] [address] [id number] [place] [address]- 0846 Nov, [facility] [place] [facility] [address] [id number] [place] [address]- 9928 Nov, [facility] [place] [facility] [address] [id number] [place] [address]- 1507 Oct, [facility] [place] [facility] [address] [id number] [place] [address]- 2786 Oct, [facility] [place] [facility] [address] [id number] [place] [address]- 2281 Oct, [facility] [place] [facility] [address] [id number] [place] [address]- 2302 Oct, [facility] [place] [facility] [address] [id number] [place] [address]- 9226 Oct, [facility] [place] [facility] [address] [id number] [place] [address]- 2026 Oct, [facility] [place] [facility] [address] [id number] [place] [address]- 7661 Sep, [facility] [place] [facility] [address] [id number] [place] [address]- 5787 Sep, [facility] [place] [facility] [address] [id number] [place] [address]- 9261 Sep, [facility] [address] [id number] [place] [address]- 2593 Sep, [facility] [address] [id number] [place] [address]- 6830 August, [facility] [address] [id number] [place] [address]- 8840 August, [facility] [address] [id number] [place] [address]- 6613 August, [facility] [address] [id number] [place] [address]- 5769 August, [facility] [address] [id number] [place] [address]- 4458 August, [facility] [address] [id number] [place] [address]- 5730 Jul, [facility] [address] [id number] [place] [address]- 3331 Jul, [facility] [address] [id number] [place] [address]- 7728 Jul, [facility] [address] [id number] [place] [address]- 1878 Jul, [facility] [address] [id number] [place] [address]- 7214 Jul, [facility] [address] [id number] [place] [address]- 3970 Jul, [facility] [place] [facility] [address] [id number] [place] [address]- 8427 Jul, [facility] [place] [facility] [address] [id number] [place] [address]- 5112 Jul, [facility] [place] [facility] [address] [id number] [place] [address]- 3321 Jul, [facility] [address] [id number] [place] [address]- 0038 Jul, [facility] [address] [id number] [place] [address] Jun, [facility] [address] [id number] [place] [address]- 0351 Jun, [facility] [address] [id number] [place] [address]- 3927 Jun, [facility] [address] [id number] [place] [address]- 9176 Jun, [facility] [address] [id number] [place] [address]- 1937 Jun, [facility] [address] [id number] [place] [address]- 3430 May, [facility] [address] [id number] [place] [address]- 6069 May, [facility] [address] [id number] [place] [address]- 1232 May, [facility] [address] [id number] [place] [address]- 3847 Apr, [facility] [address] [id number] [place] [address] Apr, [facility] [address] [id number] [place] [address] Apr, [facility] [address] [id number] [place] [address] Apr, [facility] [address] [id number] [place] [address] Apr, [facility] [place] [facility] [address] [id number] [place] [address] Apr, [facility] [address] [id number] [place] [address] 20 Mar, 2012 [facility] [place] [facility] [address] [id number] [place] [address] Mar, [facility] [place] [facility] [address] [id number] [place] [address] Mar, [facility] [place] [facility] [address] [id number] [place] [address] Mar, [facility] [place] [facility] [address] [id number] [place] [address] Feb, [facility] [place] [facility] [address] [id number] [place] [address] Feb, [facility] [place] [facility] [address] [id number] [place] [address] Feb, [facility] [place] [facility] [address] [id number] [place] [address] Feb, [facility] [place] [facility] [address] [id number] [place] [address] Feb, [facility] [place] [facility] [address] [id number] [place] [address] Feb, [facility] [place] [facility] [address] [facility] [id number] [place] [address] Feb, [facility] [place] [facility] [address] [id number] [place] [address] Feb, [facility] [place] [facility] [address] [id number] [place] [address] Feb, [facility] [place] [facility] [address] [id number] [place] [address] Feb, [facility] [place] [facility] [address] [id number] [place] [address]- [address] Feb, [facility] [place] [facility] [address] [id number] [place] [address] Feb, [facility] [place] [facility] [address] [id number] [place] [address] Feb, [facility] [place] [facility] [address] [id number] [place] [address] Feb, [facility] [place] [facility] [address] [id number] [place] [address] Feb, [facility] [place] [facility] [address] [id number] [place] [address]- [address] Feb, [facility] [place] [facility] [address] [id number] [place] [address] Jan, [facility] [place] [facility] [address] [id number] [place] [address] Jan, [facility] [place] [facility] [address] [id number] [place] [address] Jan, [facility] [place] [facility] [address] [id number] [place] [address] Jan, [facility] [place] [facility] [address] [id number] [place] [address] 30 Jan, 2012 [facility] [place] [facility] [address] [id number] [place] [address] Jan, [facility] [place] [facility] [address] [id number] [place] [address] Jan, [facility] [place] [facility] [address] [id number] [place] [address] Jan, [facility] [place] [facility] [address] [id number] [place] [address] 16 Jan, 2012 [facility] [place] [facility] [address] [id number] [place] [address] 15 Jan, 2012 [facility] [place] [facility] [address] [id number] [place] [address] 15 Jan, 2012 [facility] [place] [facility] [address] [id number] [place] [address] Jan, [facility] [place] [facility] [address] [id number] [place] [address] 26 Sep, 2011 [facility] [place] [facility] [address] [id number] [place] [address] 26 Dec, 2011 [facility] [place] [facility] [address] [id number] [place] [address] 24 Dec, 2011 [facility] [place] [facility] [address] [id number] [place] [address] 23 Dec, 2011 [facility] [place] [facility] [address] [id number] [place] [address] 22 Dec, 2011 [facility] [place] [facility] [address] [id number] [place] [address]- [address] 21 Dec, 2011 [facility] [place] [facility] [address] [id number] [place] [address] 20 Dec, 2011 [facility] [place] [facility] [address] [id number] [place] [address] 20 Dec, 2011 [facility] [place] [facility] [address] [id number] [place] [address] 07 Dec, 2011 [facility] [place] [facility] [address] [id number] [place] [address]- [address] 06 Dec, 2011 [facility] [place] [facility] [address] [id number] [place] [address] 06 Dec, 2011 [facility] [place] [facility] [address] [id number] [place] [address] 05 Dec, 2011 [facility] [place] [facility] [address] [id number] [place] [address]- [address] 23 Nov, 2011 [facility] [place] [facility] [address] [id number] [place] [address]- [address] 17 Nov, 2011 [facility] [place] [facility] [address] [id number] [place] [address]- [address] 13 Nov, 2011 [facility] [place] [facility] [address] [address] [id number] [place] [address] Nov, [facility] [address] [id number] [place] [address] Nov, [facility] [place] [facility] [address] [id number] [place] [address] Nov, [facility] [address] [id number] [place] [address] Nov, [facility] [place] [facility] [address] [id number] [place] [address] Nov, [facility] [place] [facility] [address] [id number] [place] [address] Oct, [facility] [place] [facility] [address] [id number] [place] [address] Oct, [facility] [place] [facility] [address] [id number] [place] [address] Oct, [facility] [address] [id number] [place] [address] Oct, [facility] [place] [facility] [address] [id number] [place] [address] Oct, [facility] [address] [id number] [place] [address] Oct, [facility] [place] [facility] [address] [id number] [place] [address] Oct, [facility] [place] [facility] [address] [id number] [place] [address] Sep, [facility] [place] [facility] [address] [id number] [place] [address] Sep, [facility] [place] [facility] [address] [id number] [place] [address] August, [facility] [place] [facility] [address] [id number] [place] [address] August, [facility] [address] [id number] [place] [address] August, [facility] [place] [facility] [address] [id number] [place] [address] August, [facility] [place] [facility] [address] [id number] [place] [address] Jul, [facility] [place] [facility] [address] [id number] [place] [address] Jul, [facility] [place] [facility] [address] [id number] [place] [address] Jul, [facility] [place] [facility] [address] [id number] [place] [address] Jul, [facility] [place] [facility] [address] [id number] [place] [address] Jul, [facility] [place] [facility] [address] [id number] [place] [address] Jul, [facility] [place] [facility] [address] [id number] [place] [address] Jul, [facility] [place] [facility] [address] [id number] [place] [address] Jul, [facility] [place] [facility] [address] [id number] [place] [address] Jul, [facility] [place] [facility] [address] [id number] [place] [address] Jun, [facility] [place] [facility] [address] [id number] [place] [address] 19 Jun, 2011 [facility] [place] [facility] [address] [id number] [place] [address] 15 Jun, 2011 [facility] [place] [facility] [address] [id number] [place] [address] 14 Jun, 2011 [facility] [place] [facility] [address] [id number] [place] [address] Jun, [facility] [address] [id number] [place] [address] Jun, [facility] [place] [facility] [address] [id number] [place] [address] Jun, [facility] [address] [id number] [place] [address] May, [facility] [place] [facility] [address] [id number] [place] [address] May, [facility] [place] [facility] [address] [id number] [place] [address] May, [facility] [place] [facility] [address] [id number] [place] [address] May, [facility] [address] [id number] [place] [address] May, [facility] [place] [facility] [address] [id number] [place] [address] Apr, [facility] [place] [facility] [address] [id number] [place] [address] Apr, [facility] [address] [facility] [id number] [place] [address] Apr, [facility] [place] [facility] [address] [id number] [place] [address] Apr, [facility] [place] [facility] [address] [id number] [place] [address] Apr, [facility] [place] [facility] [address] [id number] [place] [address] Mar, [facility] [place] [facility] [address] [id number] [place] [address] 25[address] Mar, [facility] [address] [id number] [place] [address] Mar, [facility] [place] [facility] [address] [id number] [place] [address] Mar, [facility] [place] [facility] [address] [id number] [place] [address] Mar, [facility] [place] [facility] [address] [id number] [place] [address] Mar, [facility] [place] [facility] [address] [id number] [place] [address] Mar, [facility] [place] [facility] [address] [id number] [place] [address] Feb, [facility] [place] [facility] [address] [id number] [place] [address] Feb, [facility] [place] [facility] [address] [id number] [place] [address]- [address] Feb, [facility] [place] [facility] [address] [id number] [place] [address]- [address] Feb, [facility] [place] [facility] [address] [id number] [place] [address] Jan, [facility] [place] [facility] [address] [id number] [place] [address] Jan, [facility] [place] [facility] [address] [id number] [place] [address] Jan, [facility] [place] [facility] [address] [id number] [place] [address] Jan, [facility] [place] [facility] [address] [id number] [place] [address] Nov, [facility] [place] [facility] [address] [id number] [place] [address] Mar, [facility] [place] [facility] [address] [id number] [place] [address] Mar, [facility] [place] [facility] [address] [id number] [place] [address] Mar, [facility] [address] [facility] [id number] [place] [address] Mar, [facility] [address] [id number] [place] [address] Mar, [facility] [address] [id number] [place] [address] Mar, [facility] [address] [id number] [place] [address] Feb, [facility] [address] [id number] [place] [address] Feb, [facility] [address] [id number] [place] [address] Jan, [facility] [address] [id number] [place] [address] Jan, [facility] [address] [id number] [place] [address] Jan, IMMUNIZATIONS No Known Immunizations SOCIAL HISTORY Never Assessed REASON FOR VISIT f/u PLAN OF CARE Activity Details Follow Up prn Reason: VITAL SIGNS MEDICATIONS Unknown Medications RESULTS No Results PROCEDURES Procedure Date Ordered Result Body Site PENDING SALE TO [facility] VISIT MENTAL HEALTH ESTAB PT August 15, 2017 Psychotherapy, patient &/family, 30 minutes, established patient August 15, 2017 INSTRUCTIONS MEDICATIONS ADMINISTERED No Known [...] meningitis December 2016 Hospitalization History [facility] psych for SI 1988 Hospitalization History [facility]-Altered mental status 05/2017
--- OUTSIDE RECORDS SUMMARY | 2018-05-29 08:46 | XMS REPORT ---
Author Author ISABEL MAE [facility] Address [address] [place] [address] Care Team Providers Care General Maintenance Helper Name Role Phone ISABEL MAE Unavailable PROBLEMS Type Condition ICD9-CM Code [id number] Code Onset Dates Condition Status SNOMED Code Problem Long-term use of high-risk medication Z79.899 Active 211252110 Problem Abnormal chest CT R93.8 Active 485713156 Problem Generalized anxiety disorder F41.1 Active 67909756 Problem Low back pain M54.5 Active 606179333 Problem Dysthymic disorder F34.1 Active 73062938 Problem Depressed F32.9 Active 06547417 Problem Coronary artery disease involving takotna coronary artery of takotna heart, angina presence unspecified I25.10 Active 8538996557323 Problem Hypothyroid E03.9 Active 28864433 Problem Insomnia G47.00 Active 249892463 Problem Vitamin D deficiency E55.9 Active 90410489 Problem Asthma J45.909 Active 033383147 Problem Chronic kidney disease, unspecified N18.9 Active 266257799 Problem Palpitations R00.2 Active 73499372 Problem Anemia in chronic kidney disease D63.1 Active 000023671300705 Problem Primary osteoarthritis of left knee M17.12 Active 151545190 Problem Bipolar disorder, current episode manic without psychotic features F31.10 Active 322396333 Problem Restless leg syndrome G25.81 Active 64331760 Problem Seasonal allergic rhinitis due to pollen J30.1 Active 20843128 Problem Functional diarrhea K59.1 Active 71716011 Problem Chronic kidney disease, stage 4 (severe) N18.4 Active 548800496 Problem Restless leg G25.81 Active 17484497 Problem Mood disorder F39 Active 61230305 Problem Degenerative tear of medial meniscus of left knee M23.204 Active 195845433 Problem Body mass index (BMI) of 40.0-44.9 in adult Z68.41 Active 599709071 Problem Stage 3 chronic kidney disease N18.3 Active 938376841 Problem Asthma with acute exacerbation in adult J45.901 Active 601753722 Problem Other seasonal allergic rhinitis J30.2 Active 630704595 Problem History of colon polyps Z86.010 Active 945075755 Problem History of anemia Z86.2 Active 270297919 Problem Fibromyalgia M79.7 Active 555806503 Problem Essential (primary) hypertension I10 Active 73745228 Problem Hypokalemia E87.6 Active 57088489 Problem Mixed stress and urge urinary incontinence N39.46 Active 928154476 ALLERGIES No Information ENCOUNTERS Encounter Location Date Diagnosis [facility] [address] [address]- [address] Nov, [place] [address] 92473- 0218 Nov, [place] [address] 40789- [address]17 Nov, [facility] [address] 36284- 2436 Nov, Complicated UTI (urinary tract infection) N39.0 [facility] [address] 34246- 6583 Oct, [facility] [address] [place] [id number] [place] [address] 35822- 4382 Oct, Generalized anxiety disorder F41.1 and Major depressive disorder, recurrent episode with anxious distress F33.9 [facility] [address] [place] [id number] [place] [address] 05480- 0956 Oct, [facility] [address] 92315- 0192 Oct, Fibromyalgia M79.7 [facility] [address] [place] [id number] [place] [address] 69446- 3284 Sep, Restless leg syndrome G25.81 and Restless leg G25.81 [facility] [address] 69250- 7275 Sep, [place] [address] [place] [id number] [place] [address] 78111- 1572 Sep, Seasonal allergic rhinitis due to pollen J30.1 ; Screening for breast cancer Z12.31 ; Chest pain at rest R07.9 ; Restless leg syndrome G25.81 ; Essential (primary) hypertension I10 and Depressed F32.9 [place] [address] 10013- 1244 August, Fibromyalgia M79.7 [place] [address] 66017- 0179 August, [place] [address] 95554- 0189 August, [place] [address] 56659- 3572 August, Abnormal chest CT R93.8 [place] [address] 92001- 1092 August, Generalized anxiety disorder F41.1 and Major depressive disorder, recurrent episode with anxious distress F33.9 [place] [address] 07318- 0898 August, Abnormal chest CT R93.8 [place] [address] 90013- 3045 Jul, [place] [address] 45022- 5978 Jul, Chronic kidney disease, stage 4 (severe) N18.4 [place] [address] 43647- 8621 Jul, [place] [address] 49829- 3960 Jul, Restless leg G25.81 ; Mixed stress and urge urinary incontinence N39.46 and Fibromyalgia M79.7 [place] [address] [place] [address] 6719 Jul, Chronic kidney disease, stage 4 (severe) N18.4 [facility] [id number] [place] [address] 32371- 8898 Jun, Orthostatic hypotension I95.1 ; Chronic kidney disease, stage 4 (severe) N18.4 ; Chest wall discomfort R07.89 and Body mass index (BMI) of 40.0-44.9 in adult Z68.41 [facility] [address] [place] [id number] [place] [address] 60575- 3096 Jun, [facility] [address] [place] [id number] [place] [address] 53142- 9910 Jun, Orthostatic hypotension I95.1 [place] [address] [place] [id number] [place] [address] 44656- 3160 Jun, [facility] [address] [id number] [place] [address] 59695 -9230 Jun, Orthostatic hypotension I95.1 ; Dysuria R30.0 and Acute cystitis without hematuria N30.00 [facility] [address] [id number] [place] [address] 52326- 4935 Jun, [facility] [address] [place] [id number] [place] [address] 03505- 3736 Jun, Chronic kidney disease, stage 4 (severe) N18.4 [place] [address] [place] [id number] [place] [address] 02527- 9309 Jun, Fibromyalgia M79.7 [facility] [address] [place] [id number] [place] [address] 28638- 0625 Jun, [facility] [address] [place] [id number] [place] [address] 72300- 8712 Jun, [facility] [address] [place] [id number] [place] [address] 91476- [address] May, [address] R93.8 and Stage 3 chronic kidney disease N18.3 [facility] [address] [address] 0158 May, Chronic kidney disease, stage 4 (severe) N18.4 [facility] [address] [place] [address] 37704- 7930 May, Chronic kidney disease, stage 4 (severe) N18.4 [facility] [address] [place] [address] 19305- [address] May, [address] R93.8 [facility] [address] [place] [address] 66001- 4159 May, [facility] [address] [place] [id number] [place] [address] 70224- 0138 May, [facility] [address] [place] [address] 34218- 6892 May, Generalized anxiety disorder F41.1 and Major depressive disorder, recurrent episode with anxious distress F33.9 [facility] [address] [address] 6106 May, Mood disorder F39 [facility] [id number] [place] [address] 41328- 0183 Apr, [facility] [address] [address] 9428 Apr, Infected skin lesion L08.9 and Muscle strain of right shoulder region, initial encounter S46.911A [facility] [address] [place] [id number] [place] [address] 50508- 6431 Apr, Generalized anxiety disorder F41.1 and Major depressive disorder, recurrent episode with anxious distress F33.9 [facility] [address] [place] [address] 68166- 6159 Apr, [facility] [address] [place] [address] 96169- 1008 Apr, Recent urinary tract infection Z87.440 and Hypothyroid E03.9 [facility] [address] [place] [address] 20223- 5742 Apr, Generalized anxiety disorder F41.1 and Major depressive disorder, recurrent episode with anxious distress F33.9 [place] [id number] [place] [address] 06419- 1002 Apr, Recent urinary tract infection Z87.440 [place] [address] [place] [id number] [place] [address] 49245- 9134 Mar, [facility] [id number] [place] [address] 76614 -4122 Mar, Dysuria R30.0 ; Acute cystitis without hematuria N30.00 and BMI 40.0-44.9, adult Z68.41 [place] [address] [place] [id number] [place] [address] 58825- 8299 Mar, [place] [address] [place] [id number] [place] [address] 32837- 3593 Mar, [place] [address] [place] [id number] [place] [address] 73713- 0962 Mar, Generalized anxiety disorder F41.1 and Major depressive disorder, recurrent episode with anxious distress F33.9 [place] [id number] [place] [address] 13109- 7344 Feb, Conjunctivitis, bacterial H10.9 [place] [address] [place] [id number] [place] [address] 74958- 7375 Feb, [facility] [id number] [place] [address] 65856 -9659 Feb, Conjunctivitis, bacterial H10.9 [place] [id number] [place] [address] 18026- 6529 Feb, [facility] [id number] [place] [address] 59787 -3560 Feb, Dysuria R30.0 ; Acute cystitis N30.00 and BMI 40.0-44.9, adult Z68.41 [place] [address] [place] [id number] [place] [address] 80585- 7717 Feb, [place] [address] [place] [id number] [place] [address] 03609- 3392 Feb, Generalized anxiety disorder F41.1 and Major depressive disorder, recurrent episode with anxious distress F33.9 [place] [address] [place] [id number] [place] [address] 58589- 4073 Feb, Mood disorder F39 and BMI 40.0-44.9, adult Z68.41 [place] [address] 42943- 7872 Jan, [place] [address] [place] [id number] [place] [address] 56612- 9236 Jan, [place] [address] [place] [id number] [place] [address] 32088- 8293 Jan, Hypothyroid E03.9 [place] [address] [place] [id number] [place] [address] 81337- 2771 Jan, [place] [address] [place] [id number] [place] [address] 02379- 7917 Jan, Chronic kidney disease, unspecified N18.9 ; Hypokalemia E87.6 ; Essential (primary) hypertension I10 ; Fibromyalgia M79.7 ; Coronary artery disease involving takotna coronary artery of takotna heart, angina presence unspecified I25.10 ; Hypothyroid E03.9 and Encounter for immunization Z23 [facility] [address] [id number] [place] [address] 47771- 8964 Jan, Hypothyroid E03.9 [place] [address] [place] [id number] [place] [address] 04898- 7112 Jan, [facility] [address] [place] [id number] [place] [address] 38986- 9873 Dec, Vitamin D deficiency E55.9 [facility] [id number] [place] [address] 92942- 4097 28 Dec, 2016 Primary osteoarthritis of left knee M17.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 [facility] [id number] [place] [address] 28898 2546 19 Dec, 2016 Fibromyalgia M79.7 [facility] [address] [place] [id number] [place] [address] 07411 2546 18 Dec, 2016 Mood disorder F39 [place] [address] [place] [id number] [place] [address] 79408 2546 13 Dec, 2016 [place] [address] [place] [id number] [place] [address] 87003- 2373 13 Dec, 2016 Generalized anxiety disorder F41.1 and Major depressive disorder, recurrent episode with anxious distress F33.9 [place] [address] [place] [id number] [place] [address] 94491- 9315 11 Dec, 2016 [place] [id number] [place] [address] 81191 2548 08 Dec, 2016 Streptococcal meningitis G00.2 [place] [address] [place] [id number] [place] [address] 88008 2546 07 Dec, 2016 Streptococcal meningitis G00.2 [place] [address] [address] 2546 07 Dec, 2016 [facility] [address] [place] [id number] [place] [address] 46698 2546 06 Dec, 2016 [facility] [id number] [place] [address] 43606 2546 06 Dec, 2016 Streptococcal meningitis G00.2 [facility] [id number] [place] [address] 11760- 2549 06 Dec, 2016 Major depressive disorder, recurrent episode with anxious distress F33.9 [facility] [id number] [place] [address] 10060 3822 Nov, Fever, unspecified fever cause R50.9 [facility] [id number] [place] [address] 14163- 3827 Nov, [facility] [address] [place] [id number] [place] [address] 80455- 1466 Nov, Hypothyroid E03.9 [facility] [address] [id number] [place] [address] 50759- 8322 Nov, Generalized anxiety disorder F41.1 and Major depressive disorder, recurrent episode with anxious distress F33.9 [facility] [address] [id number] [place] [address] 60305- 5159 Nov, [facility] [id number] [place] [address] [id number] Oct, Dental examination Z01.20 [facility] [address] [id number] [place] [address] 85989- 9597 Oct, Generalized anxiety disorder F41.1 and Major depressive disorder, recurrent episode with anxious distress F33.9 [facility] [id number] [place] [address] 27819- 7437 Oct, Chronic kidney disease, stage 4 (severe) N18.4 [facility] [id number] [place] [address] 05806- 6975 Oct, [facility] [id number] [place] [address] 59128- 1364 Oct, Fibromyalgia M79.7 [facility] [id number] [place] [address] 61739- 2106 Oct, [facility] [id number] [place] [address] 50094- 0864 Oct, Generalized anxiety disorder F41.1 ; Major depressive disorder, recurrent episode with anxious distress F33.9 and Bipolar disorder, current episode manic without psychotic features F31.10 [facility] [id number] [place] [address] 45100- 4001 Sep, [place] [address] [address]- 0391 Sep, [place] [address] [place] [id number] [place] [address] 79648- 8526 Sep, Vitamin D deficiency E55.9 [place] [address] [place] [id number] [place] [address] 75599- 2538 Sep, Vitamin D deficiency E55.9 [place] [id number] [place] [address] 05394- 7858 Sep, [place] [address] [id number] [place] [address] 71448- 3571 Sep, Chronic kidney disease, stage 4 (severe) N18.4 ; Hypothyroid E03.9 ; Restless leg G25.81 ; Fibromyalgia M79.7 ; Essential ( primary) hypertension I10 ; Vitamin D deficiency E55.9 ; Dyspepsia R10.13 ; Anemia in chronic kidney disease D63.1 ; Chronic kidney disease, unspecified N18.9 ; Coronary artery disease involving tak[place] coronary artery of takotna heart , angina presence unspecified I25.10 ; Screening breast examination Z12.39 and Low back pain M54.5 [place] [address] [place] [address] 68060- 1903 August, Generalized anxiety disorder F41.1 and Major depressive disorder, recurrent episode with anxious distress F33.9 [place] [address] [place] [address] 67871- 6112 August, Generalized anxiety disorder F41.1 and Major depressive disorder, recurrent episode with anxious distress F33.9 [place] [address] [place] [address] 57765- 3150 August, Fibromyalgia M79.7 [place] [address] [place] [id number] [place] [address] 84673- 6599 Jul, Generalized anxiety disorder F41.1 and Major depressive disorder, recurrent episode with anxious distress F33.9 [place] [id number] [place] [address] 56987- 5364 Jul, Fibromyalgia M79.7 [place] [id number] [place] [address] 30576- 1064 Jul, Generalized anxiety disorder F41.1 [place] [id number] [place] [address] 89359- 2851 May, [place] [address] 46344- 6158 May, Hypothyroid E03.9 [place] [id number] [place] [address] 19023- 8290 May, Chronic kidney disease, stage 4 (severe) N18.4 ; Hypothyroid E03.9 ; Restless leg G25.81 ; Fibromyalgia M79.7 ; Essential ( primary) hypertension I10 ; Vitamin D deficiency E55.9 ; Dyspepsia R10.13 ; Acute non-recurrent maxillary sinusitis J01.00 ; Anemia in chronic kidney disease D63.1 ; Chronic kidney disease, unspecified N18.9 and Coronary artery disease involving takotna coronary artery of takotna heart, angina presence unspecified I25.10 [place] [id number] [place] [address] 19135- 4547 May, Vitamin D deficiency, unspecified E55.9 [place] [id number] [place] [address] 91299- 5531 May, Generalized anxiety disorder F41.1 and Major depressive disorder, recurrent episode with anxious distress F33.9 [place] [id number] [place] [address] 54088- 4673 Apr, Pain in right knee M25.561 and Pain in left knee M25.562 [place] [id number] [place] [address] 36361- 3722 Apr, [place] [id number] [place] [address] 35932- 5212 Apr, [place] [id number] [place] [address] 04142- 2694 Apr, [facility] [id number] [place] [address] 80515- 4361 Mar, Generalized anxiety disorder F41.1 and Major depressive disorder, recurrent episode with anxious distress F33.9 [place] [id number] [place] [address] 82858- 1547 Mar, Generalized anxiety disorder F41.1 and Major depressive disorder, recurrent episode with anxious distress F33.9 [place] [id number] [place] [address] 90013- 6156 Mar, [place] [address] 01880- 3984 Mar, [place] [id number] [place] [address] 88132- 1561 Mar, [place] [id number] [place] [address] 77160- 6385 Mar, Asthma J45.909 and Fibromyalgia M79.7 [place] [id number] [place] [address] 46116- 7639 Mar, Chronic kidney disease, stage 4 (severe) N18.4 ; Vitamin D deficiency E55.9 and Essential (primary) hypertension I10 [place] [id number] [place] [address] 01320- 2682 Feb, [place] [id number] [place] [address] 96624- 7229 Feb, Dysuria R30.0 ; Mixed stress and urge urinary incontinence N39.46 ; Fibromyalgia M79.7 and Chronic kidney disease, stage IV (severe) N18.4 [place] [id number] [place] [address] 72906- 9287 Feb, Chronic kidney disease, stage 4 (severe) N18.4 [place] [id number] [place] [address] 37229- 9406 Feb, Chronic kidney disease, stage 4 (severe) N18.4 [place] [id number] [place] [address] 68488- 6106 Feb, [facility] [id number] [place] [address] 90241- 4791 Feb, Vitamin D deficiency, unspecified E55.9 [place] [address] 35297- 1955 Jan, [place] [id number] [place] [address] 41315- 2044 Jan, [place] [id number] [place] [address] 75628- 6088 Dec, [place] [id number] [place] [address] 03856- 1898 Dec, Chronic kidney disease, stage 4 (severe) N18.4 [place] [id number] [place] [address] 26145- 2399 Dec, Dysthymic disorder F34.1 and Generalized anxiety disorder F41.1 [place] [id number] [place] [address] 13239- 7163 Dec, [place] [id number] [place] [address] 92314- 3025 Dec, [place] [id number] [place] [address] 59173- 0235 Dec, Dysthymic disorder F34.1 and Generalized anxiety disorder F41.1 [place] [id number] [place] [address] 13062- 9796 Dec, Dysuria R30.0 ; Chronic kidney disease, stage 4 (severe) N18.4 ; Hypertension I10 ; Dyspepsia R10.13 ; Yeast dermatitis B37.2 ; Palpitations R00.2 ; Hypothyroid E03.9 ; Functional diarrhea K59.1 and Other seasonal allergic rhinitis J30.2 [facility] [address] [place] [address] 09287 -6513 Dec, [facility] [id number] [place] [address] 04343 -4849 Nov, Dysuria R30.0 and Stress incontinence N39.3 [facility] [id number] [place] [address] 86074- 6655 Nov, [place] [id number] [place] [address] [phone] Nov, [place] [id number] [place] [address] [phone]- [phone] Nov, Osteoarthritis of knees, bilateral M17.0 [place] [id number] [place] [address] [phone]- [phone] Nov, Dysthymic disorder F34.1 and Generalized anxiety disorder F41.1 [place] [id number] [place] [address] [phone] Nov, [place] [id number] [place] [address] 48370- 1141 Nov, [place] [id number] [place] [address] [phone] Nov, Urgency of urination R39.15 [place] [id number] [place] [address] [phone]- [phone] Nov, [place] [id number] [place] [address] [phone]- [phone] Nov, Chronic kidney disease, stage 4 (severe) N18.4 [place] [id number] [place] [address] [phone]- 6590 Oct, Hypertension I10 ; Coronary artery disease involving [place] coronary artery of [place] heart, angina presence unspecified I25.10 ; Palpitations R00.2 ; Hypothyroid E03.9 ; Right foot pain M79.671 ; Functional diarrhea K59.1 and Other seasonal allergic rhinitis J30.2 [facility] [id number] [address] Oct, Dysthymic disorder F34.1 and Generalized anxiety disorder F41.1 [facility] [id number] [place] [address] Sep, [facility] [id number] [place] [address] 23438- 4752 Sep, [facility] [id number] [place] [address] 46598- 5324 Sep, [facility] [id number] [place] [address] 47754- 0928 Sep, [facility] [id number] [place] [address] 86564- 7129 Sep, [facility] [id number] [place] [address] 29276- 0518 Sep, Dysthymic disorder F34.1 and Generalized anxiety disorder F41.1 [facility] [id number] [place] [address] 75090- 8000 Sep, Asthma with acute exacerbation in adult J45.901 ; Dysuria R30.0 ; Chronic kidney disease, stage 4 (severe) N18.4 and History of anemia Z86.2 [address] [id number] [place] [address] 46571- 5013 Sep, Generalized anxiety disorder F41.1 and Dysthymic disorder F34.1 [facility] [id number] [place] [address] 44309- 6302 August, Screening breast examination Z12.39 and Acute recurrent maxillary sinusitis J01.01 [facility] [id number] [place] [address] 48974- 6112 August, Osteoarthritis of knees, bilateral M17.0 [facility] [id number] [place] [address] 17155- 0110 August, Chronic kidney disease, stage 4 (severe) N18.4 ; Acute non- recurrent maxillary sinusitis J01.00 ; Urinary problem R39.89 ; Bowel habit changes R19.4 ; Functional diarrhea K59.1 and History of colon polyps Z86.010 [facility] [id number] [place] [address] 89941- 7660 29 Jul, 2015 Dysthymic disorder F34.1 and Generalized anxiety disorder F41.1 [place] [id number] [place] [address] 11845- 4677 Jul, [place] [id number] [place] [address] 36539- 6702 Jul, Dysthymic disorder F34.1 ; Generalized anxiety disorder F41.1 and intermediate use of drug Z79.899 [place] [id number] [place] [address] 62116- 9308 Jul, [place] [id number] [place] [address] 54064- 9762 Jun, [facility] [id number] [place] [address] 00275- 6434 Jun, [place] [id number] [place] [address] 62182- 8794 May, [place] [id number] [place] [address] 61199- 4527 May, Dysthymic disorder F34.1 and Generalized anxiety disorder F41.1 [place] [id number] [place] [address] 37605- 3948 Apr, Kidney disease N28.9 [place] [id number] [place] [address] 43948- 5101 Apr, Generalized anxiety disorder F41.1 and Dysthymic disorder F34.1 [place] [address] [address] 8338 Apr, Chronic kidney disease, stage 4 (severe) N18.4 [facility] [id number] [place] [address] 04157- 5023 Apr, Generalized anxiety disorder F41.1 ; Major depression, recurrent F33.9 and Sleep disturbance G47.9 [place] [id number] [place] [address] 28831- 4575 Mar, Generalized anxiety disorder F41.1 and Dysthymic disorder F34.1 [place] [address] 61822- 4948 Mar, Generalized anxiety disorder F41.1 ; Dysthymic disorder F34.1 and Insomnia G47.00 [place] [address] 59049- 6249 Mar, [place] [address] 65817- 8248 Mar, [place] [address] 04984- 1206 Mar, Osteoarthritis of knees, bilateral M17.0 [place] [address] 58167- 6559 Mar, Hypertension I10 ; Hypothyroid E03.9 ; Dysthymic disorder F34.1 ; Chronic kidney disease, stage 4 (severe) N18.4 and Nausea & vomiting R11.2 [place] [id number] [place] [address] 11151- 9722 Mar, Generalized anxiety disorder F41.1 ; Dysthymic disorder F34.1 and Insomnia G47.00 [place] [id number] [place] [address] 71959- 0847 Mar, Dehydration E86.0 ; Chronic kidney disease, stage 4 (severe ) N18.4 and Nausea & vomiting R11.2 [facility] [id number] [place] [address] 44269 -2504 Mar, Gastroenteritis K52.9 [facility] [id number] [place] [address] [id number]- 2301 Mar, [place] [address] 63294- 9445 Mar, [place] [address] 45160- 0667 Feb, Dysthymic disorder F34.1 and Generalized anxiety disorder F41.[address] 09361- 9025 Jan, UTI (urinary tract infection) N39.0 ; Asthma J45.909 ; Coronary artery disease involving takotna coronary artery of takotna heart, angina presence unspecified I25.10 ; Hypertension I10 ; Hypothyroid E03.9 ; Vitamin D deficiency E55.9 ; Insomnia G47.00 ; Palpitations R00.2 ; Depressed F32.9 ; Restless leg G25.81 and Anxiety F41.[address] 47873- 6205 Jan, Dysthymic disorder F34.1 and Generalized anxiety disorder F41.[address] 76782- 6045 Jan, [place] [id number] [place] [address] 81475- 3474 Dec, [place] [id number] [place] [address] 22929- 0373 Dec, Alkalosis 276.3 ; Chronic kidney disease, Stage IV (severe) 585.4 ; Hyperpotassemia 276.7 ; Secondary hyperparathyroidism, renal 588.81 ; Proteinuria 791.0 ; Unspecified vitamin D deficiency 268.9 ; Anemia in chronic kidney disease 285.21 ; Other and unspecified hyperlipidemia 272.4 ; Hypertension, essential, benign 401.1 and Chronic kidney disease (CKD), stage III (moderate) 585.3 [id number] [place] [address] 83392- 6867 16 Dec, 2014 [address] [address] [address]- 0805 16 Dec, 2014 Depressive disorder, not elsewhere classified 311 and Generalized anxiety disorder 300.02 [place] [id number] [place] [address] 12496- 8270 Dec, [id number] [place] [address] 96776- 3090 Dec, [address] [id number] [place] [address] 52581- 8010 Nov, Depressive disorder, not elsewhere classified 311 and Generalized anxiety disorder 300.[address] 77532- 5639 Nov, Arthritis of both knees 716.96 [address] [id number] [place] [address] 94887- 4482 Nov, PAF (paroxysmal atrial fibrillation) 427.31 ; CAD (coronary artery disease) 414.00 ; Chest pain 786.50 and Chronic kidney disease (CKD) stage G4/A1, severely decreased glomerular filtration rate (GFR) between 15-29 mL/min/1.73 square meter and albuminuria creatinine ratio less than 30 mg/g 585.4 [id number] [place] [address] 53338- 0301 Oct, Coronary atherosclerosis of unspecified type of vessel, takotna or graft 414.00 ; Chronic kidney disease, Stage IV (severe) 585.4 ; Hypertension 401.9 and Edema 782.3 [id number] [place] [address] 50909- 5469 Oct, Depressive disorder, not elsewhere classified 311 and Generalized anxiety disorder 300.02 [id number] [place] [address] 83132- 1187 Oct, Depressive disorder, not elsewhere classified 311 and Generalized anxiety disorder 300.02 [id number] [place] [address] 91970- 6583 Oct, [id number] [place] [address] 50964- 0485 Oct, [facility] [address] 73620- 8661 Sep, [facility] [id number] [place] [address] 72226- 5491 Sep, Chronic kidney disease, Stage IV (severe) 585.4 [facility] [address] 48346- 3928 Sep, [facility] [address] 32496- 4934 Sep, Coronary atherosclerosis of unspecified type of vessel, takotna or graft 414.00 ; Hypertension 401.9 ; Edema 782.3 and Hypothyroidism 244.9 [address] [address] 95509- 4581 Sep, Coronary atherosclerosis of unspecified type of vessel, takotna or graft 414.00 ; Hypertension 401.9 ; Fibromyalgia 729.1 ; Edema 782.3 ; Hypothyroidism 244.9 and Anemia 285.9 [place] [address] 73692- 9272 Sep, Anxiety disorder, unspecified 300.00 and Depressive disorder , not elsewhere classified 311 [address] [id number] [place] [address] 09866- 7800 Sep, [facility] [address] 21809- 5240 August, Generalized anxiety disorder 300.02 [facility] [id number] [place] [address] 77693- 6703 August, Closed fracture of lateral malleolus 824.2 [facility] [id number] [place] [address] 74859- 7929 Jul, [facility] [id number] [place] [address] 81789- 3462 Jul, [facility] [place] [facility] [address] [id number] [place] [address]- 7705 Jun, 2014 [facility] [place] [facility] [address] [id number] [place] [address]- 0220 Jun, 2014 [facility] [place] [facility] [address] [id number] [place] [address]- 2544 Jun, 2014 [facility] [place] [facility] [address] [id number] [place] [address]- 1649 Jun, 2014 [facility] [place] [facility] [address] [id number] [place] [address]- 7179 Jun, [facility] [place] [facility] [address] [id number] [place] [address]- 8998 Jun, 2014 [facility] [place] [facility] [address] [facility] [id number] [place] [address]- 9618 19 May, 2014 [facility] [place] [facility] [address] [facility] [id number] [place] [address]- 0072 19 May, 2014 [facility] [place] [facility] [address] [facility] [id number] [place] [address]- 6068 18 May, 2014 [facility] [place] [facility] [address] [facility] [id number] [place] [address]- 3469 18 May, 2014 [facility] [place] [facility] [address] [facility] [id number] [place] [address]- 4248 16 May, 2014 [facility] [place] [facility] [address] [facility] [id number] [address]- 0455 16 May, 2014 [facility] [place] [facility] [address] [facility] [id number] [place] [address]- 3736 13 May, 2014 [facility] [place] [facility] [address] [id number] [place] [address]- 4231 13 May, 2014 [facility] [place] [facility] [address] [facility] [id number] [place] [address]- 4192 10 May, 2014 [facility] [place] [facility] [address] [facility] [id number] [address]- 7558 May, [facility] [place] [facility] [address] [id number] [place] [address]- 6952 Apr, [facility] [place] [facility] [address] [id number] [place] [address]- 5238 Apr, [facility] [place] [facility] [address] [facility] [id number] [place] [address]- 6444 Mar, [facility] [place] [facility] [address] [id number] [place] [address]- 8003 Mar, [facility] [place] [facility] [address] [id number] [place] [address]- 8626 Mar, [facility] [place] [facility] [address] [id number] [place] [address]- 3748 Mar, [facility] [place] [facility] [address] [facility] [id number] [place] [address]- 8110 Mar, [facility] [place] [facility] [address] [id number] [place] [address]- 3531 Mar, [facility] [place] [facility] [address] [id number] [place] [address]- 0532 Mar, [facility] [place] [facility] [address] [facility] [id number] [place] [address]- 7970 Feb, [facility] [place] [facility] [address] [id number] [place] [address]- 3476 Feb, [facility] [place] [facility] [address] [id number], [place] [address]- 5341 Feb, [facility] [place] [facility] [address] [id number] [place] [address]- 2220 Jan, [facility] [place] [facility] [address] [id number] [place] [address]- 9217 Jan, [facility] [place] [facility] [address] [facility] [id number] [place] [address]- 0702 Jan, [facility] [place] [facility] [address] [id number] [place] [address]- 9604 Jan, [facility] [place] [facility] [address] [id number] [place] [address]- 7689 Jan, [facility] [place] [facility] [address] [id number] [place] [address]- 0636 Jan, [facility] [place] [facility] [address] [id number] [place] [address]- 6867 Jan, [facility] [place] [facility] [address] [id number] [place] [address]- 9358 Jan, [facility] [place] [facility] [address] [id number] [place] [address]- 9253 Jan, [facility] [place] [facility] [address] [id number] [place] [address]- 0752 Jan, [facility] [place] [facility] [address] [id number] [place] [address]- 7773 Nov, [facility] [place] [facility] [address] [id number] [place] [address]- 4353 Nov, [facility] [place] [facility] [address] [id number] [place] [address]- 3170 Nov, [facility] [place] [facility] [address] [id number] [place] [address]- 4186 Oct, [facility] [place] [facility] [address] [id number] [place] [address]- 0642 Oct, [facility] [place] [facility] [address] [id number] [place] [address]- 1842 Oct, [facility] [place] [facility] [address] [id number] [place] [address]- 4816 Oct, [facility] [place] [facility] [address] [id number] [place] [address]- 6310 Oct, [facility] [place] [facility] [address] [id number] [place] [address]- 9177 Oct, [facility] [place] [facility] [address] [id number] [place] [address]- 6236 Oct, [facility] [place] [facility] [address] [id number] [place] [address]- 5697 Oct, [facility] [place] [facility] [address] [id number] [place] [address]- 6885 Oct, [facility] [place] [facility] [address] [id number] [place] [address]- 1242 Sep, [facility] [place] [facility] [address] [id number] [place] [address]- 0460 Sep, [facility] [place] [facility] [address] [id number] [place] [address]- 8052 Sep, [facility] [place] [facility] [address] [id number] [place] [address]- 8994 Sep, [facility] [place] [facility] [address] [id number] [place] [address]- 6928 Sep, [facility] [place] [facility] [address] [id number] [place] [address]- 0577 Sep, [facility] [place] [facility] [address] [id number] [place] [address]- 4635 Sep, [facility] [place] [facility] [address] [id number], [place] [address]- 6994 Sep, [facility] [place] [facility] [address] [id number], [place] [address]- 0280 Sep, [facility] [place] [facility] [address] [id number] [place] [address]- 8575 August, [facility] [place] [facility] [address] [id number] [place] [address]- 4429 August, [facility] [place] [facility] [address] [id number] [place] 0508 August, [facility] [place] [facility] [address] [id number] [place] [address]- 6760 August, [facility] [place] [facility] [address] [id number] [place] [address]- 1408 August, [facility] [place] [facility] [address] [id number] [place] [address]- 0124 August, [facility] [place] [facility] [address] [id number] [place] [address]- 2458 Jul, [facility] [place] [facility] [address] [id number] [place] [address]- 9156 Jul, [facility] [place] [facility] [address] [id number] [place] [address]- 8233 Jul, [facility] [place] [facility] [address] [id number] [place] [address]- 0451 Jul, [facility] [place] [facility] [address] [id number] [place] [address]- 0042 Jul, [facility] [place] [facility] [address] [id number] [place] [address]- 3348 Jul, [facility] [place] [facility] [address] [id number] [place] [address]- 9846 Jun, [facility] [place] [facility] [address] [facility] [id number] [place] [address]- 0195 Jun, [facility] [place] [facility] [address] [id number] [place] [address]- 5104 May, [facility] [place] [facility] [address] [id number] [place] [address]- 5613 May, [facility] [place] [facility] [address] [id number] [place] [address]- 4073 May, [facility] [place] [facility] [address] [id number] [place] [address]- 7592 May, [facility] [place] [facility] [address] [id number] [place] [address]- 5071 Apr, [facility] [place] [facility] [address] [id number] [place] [address]- 6035 Apr, [facility] [place] [facility] [address] [id number] [place] [address]- 1786 Mar, [facility] [place] [facility] [address] [id number] [place] 3796 Mar, [facility] [place] [facility] [address] [id number] [place] [address]- 1460 Mar, [facility] [place] [facility] [address] [id number] [place] [address]- 0543 Mar, [facility] [place] [facility] [address] [id number] [place] [address]- 8851 Mar, [facility] [place] [facility] [address] [id number] [place] [address]- 7972 Mar, [facility] [place] [facility] [address] [id number] [place] [address]- 6574 Feb, [facility] [place] [facility] [address] [id number] [place] [address]- 2033 Feb, [facility] [place] [facility] [address] [id number] [place] [address]- 6156 Feb, [facility] [place] [facility] [address] [id number] [place] [address]- 2500 Feb, [facility] [place] [facility] [address] [id number], [place] [address]- 4616 Feb, [facility] [place] [facility] [address] [id number] [place] [address]- 3386 Feb, [facility] [place] [facility] [address] [id number] [place] [address]- 4205 Jan, [facility] [place] [facility] [address] [id number] [place] 4781 Jan, [facility] [place] [facility] [address] [id number] [place] [address]- 7811 Jan, [facility] [place] [facility] [address] [id number] [place] [address]- 2054 Jan, [facility] [place] [facility] [address] [id number] [place] [address]- 5398 Jan, [facility] [place] [facility] [address] [id number] [place] [address]- 4467 Jan, [facility] [place] [facility] [address] [id number] [place] [address]- 1441 Dec, [facility] [place] [facility] [address] [id number] [place] [address]- 7685 Dec, [facility] [place] [facility] [address] [id number] [place] [address]- 3148 Nov, [facility] [place] [facility] [address] [id number] [place] [address]- 5122 Nov, [facility] [place] [facility] [address] [id number] [place] [address]- 5366 Oct, [facility] [place] [facility] [address] [id number] [place] [address]- 2992 Oct, [facility] [place] [facility] [address] [id number] [place] [address]- 3253 Oct, [facility] [place] [facility] [address] [id number] [place] [address]- 0[address] Oct, [facility] [place] [facility] [address] [id number] [place] [address] Oct, [facility] [place] [facility] [address] [id number] [place] [address] Oct, [facility] [place] [facility] [address] [id number] [place] [address] Sep, [facility] [place] [facility] [address] [id number] [place] [address] Sep, [facility] [place] [facility] [address] [id number] [place] [address] Sep, [facility] [address] [id number] [place] [address] Sep, [facility] [address] [id number] [place] [address] August, [facility] [address] [id number] [place] [address] August, [facility] [address] [id number] [place] [address] August, [facility] [address] [id number] [place] [address] August, [facility] [address] [id number] [place] [address] August, [facility] [address] [id number] [place] [address] Jul, [facility] [address] [id number] [place] [address] Jul, [facility] [address] [id number] [place] [address] Jul, [facility] [address] [id number] [place] [address] Jul, [facility] [address] [id number] [place] [address]58 Jul, [facility] [address] [id number] [place] [address] Jul, [facility] [place] [facility] [address] [id number] [place] [address] Jul, [facility] [place] [facility] [address] [id number] [place] [address] Jul, [facility] [place] [facility] [address] [id number] [place] [address] Jul, [facility] [address] [id number] [place] [address] Jul, [facility] [address] [id number] [id number] Jun, [facility] [address] [id number][place] [address] Jun, [facility] [address] [id number] [place] [address] Jun, [facility] [address] [id number] [place] [address] Jun, [facility] [address] [id number] [place] [address] Jun, [facility] [address] [id number] [place] [address]- [address] May, [facility] [address] [id number][place] [address] May, [facility] [address] [id number] [place] [address] May, [facility] [address] [id number], [place] [address] Apr, [facility] [address] [id number], [place] [address] Apr, [facility] [address] [id number], [place] [address] Apr, [facility] [address] [id number] [place] [address]- [address] Apr, [facility] [address] [id number], [place] [address] Apr, [facility] [place] [facility] [address] [id number], [place] [address] Apr, [facility] [address] [id number] [place] [address] 20 Mar, 2012 [facility] [place] [facility] [address] [id number] [place] [address] Mar, [facility] [place] [facility] [address] [id number] [place] [address] Mar, [facility] [place] [facility] [address] [id number] [place] [address] Mar, [facility] [place] [facility] [address] [id number] [place] [address] Feb, [facility] [place] [facility] [address] [id number] [place] [address] Feb, [facility] [place] [facility] [address] [id number] [place] [address] Feb, [facility] [place] [facility] [address] [id number] [place] [address] Feb, [facility] [place] [facility] [address] [id number] [place] [address]- [address] Feb, [facility] [place] [facility] [address] [id number] [place] [address] Feb, [facility] [place] [facility] [address] [facility] [id number] [place] [address] Feb, [facility] [place] [facility] [address] [id number] [place] [address] Feb, [facility] [place] [facility] [address] [id number], [place] [address] Feb, [facility] [place] [facility] [address] [address] [id number] [place] [address] Feb, [facility] [place] [facility] [address] [id number] [place] [address] Feb, [facility] [place] [facility] [address] [id number][place] [address] Feb, [facility] [place] [facility] [address] [id number] [place] [address] Feb, [facility] [place] [facility] [address] [id number] [place] [address] Feb, [facility] [place] [facility] [address] [id number] [place] [address] Feb, [facility] [place] [facility] [address] [id number] [place] [address] Feb, [facility] [place] [facility] [address] [id number] [place] [address] Jan, [facility] [place] [facility] [address] [id number] [place] [address] 1873 Jan, [facility] [place] [facility] [address] [id number] [place] [address] Jan, [facility] [place] [facility] [address] [id number] [place] [address] 9769 Jan, [facility] [place] [facility] [address] [id number] [place] [address]48 30 Jan, 2012 [facility] [place] [facility] [address] [id number] [place] [address] 7948 Jan, [facility] [place] [facility] [address] [id number] [place] [address]271 Jan, [facility] [place] [facility] [address] [id number], [place] [address] Jan, [facility] [place] [facility] [address] [id number] [place] [address] 8533 16 Jan, 2012 [facility] [place] [facility] [address] [id number] [place] [address] 15 Jan, 2012 [facility] [place] [facility] [address] [id number] [place] [address]- 7069 15 Jan, 2012 [facility] [place] [facility] [address] [id number], [place] [address] Jan, [facility] [place] [facility] [address] [id number] [place] [address] 9716 26 Sep, 2011 [facility] [place] [facility] [address] [id number] [place] [address] 26 Dec, 2011 [facility] [place] [facility] [address] [id number] [place] [address] 2546 24 Dec, 2011 [facility] [place] [facility] [address] [id number] [place] [address] 23 Dec, 2011 [facility] [place] [facility] [address] [id number] [place] [address] 7822 22 Dec, 2011 [facility] [place] [facility] [address] [id number] [place] [address] 6027 21 Dec, 2011 [facility] [place] [facility] [address] [id number] [place] [address] 8260 20 Dec, 2011 [facility] [place] [facility] [address] [id number] [place] [address] 3316 20 Dec, 2011 [facility] [place] [facility] [address] [id number] [place] [address] 07 Dec, 2011 [facility] [place] [facility] [address] [id number] [place] [address] 06 Dec, 2011 [facility] [place] [facility] [address] [id number] [place] [address]- 7986 06 Dec, 2011 [facility] [place] [facility] [address] [id number], [place] [address] 05 Dec, 2011 [facility] [place] [facility] [address] [id number] [place] [address] 8722 23 Nov, 2011 [facility] [place] [facility] [address] [id number] [place] [address]996 17 Nov, 2011 [facility] [place] [facility] [address] [id number] [place] [address]34 13 Nov, 2011 [facility] [place] [facility] [address] [id number] [place] [address] Nov, [facility] [address] [id number] [place] [address]41 Nov, [facility] [place] [facility] [address] [id number] [place] [address] 3026 Nov, [facility] [address] [id number] [place] [address]376 Nov, [facility] [place] [facility] [address] [id number] [place] [address] 64[address] Nov, [facility] [place] [facility] [address] [id number] [place] [address] 6[address] Oct, [facility] [place] [facility] [address] [id number] [place] [address] 5142 Oct, [facility] [place] [facility] [address] [id number] [place] [address] [address], [facility] [address] [id number] [place] [address] 8074 Oct, [facility] [place] [facility] [address] [id number] [place] [address] 2165 Oct, [facility] [address] [id number] [place] [address] 2537 Oct, [facility] [place] [facility] [address] [id number] [place] [address]4 Oct, [facility] [place] [facility] [address] [id number] [place] [address] Sep, [facility] [place] [facility] [address] [id number] [place] [address]- 2864 Sep, [facility] [place] [facility] [address] [id number] [place] [address] 7775 August, [facility] [place] [facility] [address] [id number] [place] [address] 3297 August, [facility] [address] [id number] [place] [address] 7169 August, [facility] [place] [facility] [address] [id number] [place] [address] 9541 August, [facility] [place] [facility] [address] [id number] [place] [address]- 4431 Jul, [facility] [place] [facility] [address] [id number] [place] [address]- 9270 Jul, [facility] [place] [facility] [address] [id number] [place] [address]- 9985 Jul, [facility] [place] [facility] [address] [id number] [place] [address] 3236 Jul, [facility] [place] [facility] [address] [id number] [place] [address]- 4747 Jul, [facility] [place] [facility] [address] [id number] [place] [address]- 4766 Jul, [facility] [place] [facility] [address] [id number] [place] [address]- 1495 Jul, [facility] [place] [facility] [address] [id number] [place] [address]- 6740 Jul, [facility] [place] [facility] [address] [id number] [place] [address]- 8136 Jul, [facility] [place] [facility] [address] [id number], [place] [address] 1241 Jun, [facility] [place] [facility] [address] [id number] [place] [address]- 8890 19 Jun, 2011 [facility] [place] [facility] [address] [id number] [place] [address]- 2925 15 Jun, 2011 [facility] [place] [facility] [address] [id number] [place] [address]- 9011 14 Jun, 2011 [facility] [place] [facility] [address] [id number], [place] [address]- 8336 Jun, [facility] [address] [id number] [place] [address]- 9826 Jun, [facility] [place] [facility] [address] [id number] [place] [address]- 9796 Jun, [facility] [address] [id number] [place] [address]- 5846 May, [facility] [place] [facility] [address] [id number] [place] [address]- 9367 May, [facility] [place] [facility] [address] [id number] [place] [address]- 8466 May, [facility] [place] [facility] [address] [id number] [place] [address]- 4646 May, [facility] [address] [id number] [place] [address]- 6746 May, [facility] [place] [facility] [address] [id number] [place] [address]- 6962 Apr, [facility] [place] [facility] [address] [id number] [place] [address]- 3150 Apr, [facility] [address] [facility] [id number] [place] [address]- 3196 Apr, [facility] [place] [facility] [address] [id number] [place] [address]- 9216 Apr, [facility] [place] [facility] [address] [id number] [place] [address] 2546 Apr, [facility] [place] [facility] [address] [id number] [place] [address]- 5396 Mar, [facility] [place] [facility] [address] [id number] [place] [address] 2546 Mar, [facility] [address] [id number] [place] [address]- 4127 Mar, [facility] [place] [facility] [address] [id number] [place] [address]- 9944 Mar, [facility] [place] [facility] [address] [id number] [place] [address] Mar, [facility] [place] [facility] [address] [id number] [place] [address]- 3415 Mar, [facility] [place] [facility] [address] [id number] [place] [address]- 3070 Mar, [facility] [place] [facility] [address] [id number] [place] [address] 1931 Feb, [facility] [place] [facility] [address] [id number] [place] [address]- 5350 Feb, [facility] [place] [facility] [address] [id number] [place] [address]- 7161 Feb, [facility] [place] [facility] [address] [id number] [place] [address]- 4977 Feb, [facility] [place] [facility] [address] [id number] [place] [address]- 8571 Jan, [facility] [place] [facility] [address] [id number] [place] [address]- 7946 Jan, [facility] [place] [facility] [address] [id number] [place] [address]- 6677 Jan, [facility] [place] [facility] [address] [id number] [place] [address]- 8429 Jan, [facility] [place] [facility] [address] [id number] [place] [address]- 8581 Nov, [facility] [place] [facility] [address] [id number] [place] [address]- 1501 Mar, [facility] [place] [facility] [address] [id number] [place] [address]- 7631 Mar, [facility] [place] [facility] [address] [id number], [place] [address] 2546 Mar, [facility] [address] [id number], [place] [address]- 2546 Mar, [facility] [address] [id number], [place] [address]- 2546 Mar, [facility] [address] [id number], [place] [address]- 2546 Mar, [facility] [id number], [place] [address] 2546 Feb, [facility] [address] [id number], [place] [address]- 2546 Feb, [facility] [address] [id number], [place] [address]- 2546 Jan, [facility] [id number], [place] [address]- 7246 Jan, [facility] [address] [id number], [place] [address]- 2546 Jan, IMMUNIZATIONS No Known Immunizations SOCIAL HISTORY Never Assessed REASON FOR VISIT CT Scan PLAN OF CARE VITAL SIGNS MEDICATIONS Unknown [...] 2020 & 2007 Surgical History Bladder surgery [facility] 03/2016 Surgical History Neurotransmitter placed 10/2017 Hospitalization History Surgeries Only Hospitalization History 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
--- OUTSIDE RECORDS SUMMARY | 2018-05-29 08:47 | XMS REPORT ---
Author Author ISABEL MAE [facility] Address [address] [place] [address] Care Team Providers Care Program Scheduler Name Role Phone ISABEL MAE Unavailable PROBLEMS Type Condition ICD9-CM Code HKK09-BY Code Onset Dates Condition Status SNOMED Code Problem Long-term use of high-risk medication Z79.899 Active 285541123 Problem Abnormal chest CT R93.8 Active 851373310 Problem Generalized anxiety disorder F41.1 Active 06325415 Problem Low back pain M54.5 Active 792698296 Problem Dysthymic disorder F34.1 Active 65625396 Problem Depressed F32.9 Active 85260640 Problem Coronary artery disease involving kaibab coronary artery of kaibab heart, angina presence unspecified I25.10 Active 0649899797809 Problem Hypothyroid E03.9 Active 33551200 Problem Insomnia G47.00 Active 130016508 Problem Vitamin D deficiency E55.9 Active 96704893 Problem Asthma J45.909 Active 188273149 Problem Chronic kidney disease, unspecified N18.9 Active 571893713 Problem Palpitations R00.2 Active 43796732 Problem Anemia in chronic kidney disease D63.1 Active 553037658348780 Problem Primary osteoarthritis of left knee M17.12 Active 060322083 Problem Bipolar disorder, current episode manic without psychotic features F31.10 Active 296345229 Problem Restless leg syndrome G25.81 Active 58792300 Problem Seasonal allergic rhinitis due to pollen J30.1 Active 01710421 Problem Functional 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 Active 62527525 Problem Chronic kidney disease, stage 4 (severe) N18.4 Active 636702625 Problem Restless leg G25.81 Active 37392297 Problem Mood disorder F39 Active 05693979 Problem Degenerative tear of medial meniscus of left knee M23.204 Active 590700184 Problem Body mass index (BMI) of 40.0-44.9 in adult Z68.41 Active 006109720 Problem Stage 3 chronic kidney disease N18.3 Active 279941681 Problem Asthma with acute exacerbation in adult J45.901 Active 801362561 Problem Other seasonal allergic rhinitis J30.2 Active 782867133 Problem History of colon polyps Z86.010 Active 778827091 Problem History of anemia Z86.2 Active 414310854 Problem Fibromyalgia M79.7 Active 929235424 Problem Essential (primary) hypertension I10 Active 47699096 Problem Hypokalemia E87.6 Active 96916209 Problem Mixed stress and urge urinary incontinence N39.46 Active 439837855 ALLERGIES No Information ENCOUNTERS Encounter Location Date Diagnosis [place] [address] 5[address]- [address] Nov, [place] [address] 81035- 9081 Nov, Complicated UTI (urinary tract infection) N39.0 [place] [address] 58824- 9036 Oct, [place] [address] [place] [id number] [place] [address] 04006- 2044 Oct, Generalized anxiety disorder F41.1 and Major depressive disorder, recurrent episode with anxious distress F33.9 [place] [address] [place] [id number] [place] [address] 74296- 0610 Oct, [place] [address] [place] [id number] [place] [address] 84056- 1851 Oct, Fibromyalgia M79.7 [place] [address] 33152- 1421 Sep, Restless leg syndrome G25.81 and Restless leg G25.81 [place] [address] 46421- 7938 Sep, [place] [address] [place] [id number] [place] [address] 28972- 3910 Sep, Seasonal allergic rhinitis due to pollen J30.1 ; Screening for breast cancer Z12.31 ; Chest pain at rest R07.9 ; Restless leg syndrome G25.81 ; Essential (primary) hypertension I10 and Depressed F32.9 [facility] [address] 55543- 7417 August, Fibromyalgia M79.7 [facility] [address] [place] [id number] [place] [address] 13218- 0625 August, [facility] [address] 20076- 5300 August, [facility] [address] 49055- 7567 August, Ab[address] chest [address] R93.8 [place] [address] 77403- 0103 August, Generalized anxiety disorder F41.1 and Major depressive disorder, recurrent episode with anxious distress F33.9 [place] [address] 27098- 7005 August, Ab[address] chest [address] R93.8 [facility] [address] [place] [id number] [place] [address] 83419- 6796 Jul, [facility] [address] 33685- 2276 Jul, Chronic kidney disease, stage 4 (severe) N18.4 [place] [address] [place] [id number] [place] [address] 75805- 2604 Jul, [facility] [address] [place] [id number] [place] [address] 69852- 4911 Jul, Restless leg G25.81 ; Mixed stress and urge urinary incontinence N39.46 and Fibromyalgia M79.7 [facility] [address] [place] [id number] [place] [address] 26564- 5223 Jul, Chronic kidney disease, stage 4 (severe) N18.4 [facility] [address] [place] [id number] [place] [address] 70412- 4750 Jun, Orthostatic hypotension I95.1 ; Chronic kidney disease, stage 4 (severe) N18.4 ; Chest wall discomfort R07.89 and Body mass index (BMI) of 40.0-44.9 in adult Z68.41 [facility] [address] [place] [id number] [place] [address] 87716- 7680 Jun, [facility] [address] [place] [id number] [place] [address] 29650- 7319 Jun, Orthostatic hypotension I95.1 [facility] [address] [place] [id number] [place] [address] 96321- 5279 Jun, [facility] [address] 88937 -9295 Jun, Orthostatic hypotension I95.1 ; Dysuria R30.0 and Acute cystitis without hematuria N30.00 [place] [address] [place] [id number] [place] [address] 84585- 7540 Jun, [facility] [address] [place] [id number] [place] [address] 88562- 8532 Jun, Chronic kidney disease, stage 4 (severe) N18.4 [place] [address] [place] [id number] [place] [address] 95877- 3135 Jun, Fibromyalgia M79.7 [facility] [address] [place] [id number] [place] [address] 81679- 0537 Jun, [facility] [address] [place] [id number] [place] [address] 20953- 0396 Jun, [facility] [address] [place] [id number] [place] [address] 63135- [address] May, [address] R93.8 and Stage 3 chronic kidney disease N18.3 [facility] [address] [place] [id number] [place] [address] 68675- 1621 May, Chronic kidney disease, stage 4 (severe) N18.4 [facility] [address] [place] [id number] [place] [address] 33022- 0631 May, Chronic kidney disease, stage 4 (severe) N18.4 [facility] [address] [place] [id number] [place] [address] 77883- [address] May, [address] R93.8 [facility] [address] [place] [id number] [place] [address] 14098- 3961 May, [facility] [address] [place] [id number] [place] [address] 05443- 2273 May, [facility] [address] [place] [id number] [place] [address] 75105- 5111 May, Generalized anxiety disorder F41.1 and Major depressive disorder, recurrent episode with anxious distress F33.9 [place] [address] [place] [id number] [place] [address] 80962- 0575 May, Mood disorder F39 [place] [address] [place] [id number] [place] [address] 26784- 7878 Apr, [facility] [address] [place] [id number] [place] [address] 55274- 1794 Apr, Infected skin lesion L08.9 and Muscle strain of right shoulder region, initial encounter S46.911A [place] [address] [place] [address] 31451- 0459 Apr, Generalized anxiety disorder F41.1 and Major depressive disorder, recurrent episode with anxious distress F33.9 [facility] [id number] [place] [address] 20903- 0500 Apr, [facility] [address] [place] [id number] [place] [address] 16709- 0369 Apr, Recent urinary tract infection Z87.440 and Hypothyroid E03.9 [facility] [id number] [place] [address] 28715- 0861 Apr, Generalized anxiety disorder F41.1 and Major depressive disorder, recurrent episode with anxious distress F33.9 [facility] [address] [address]- 9607 Apr, Recent urinary tract infection Z87.440 [facility] [address] [place] [id number] [place] [address] 10759- 0749 28 Mar, 2017 [facility] [id number] [place] [address] 07757 -3063 Mar, Dysuria R30.0 ; Acute cystitis without hematuria N30.00 and BMI 40.0-44.9, adult Z68.41 [place] [address] [place] [address] 38205- 9931 14 Mar, 2017 [place] [address] [place] [id number] [place] [address] 47919- 4034 Mar, [place] [id number] [place] [address] 40865- 7210 Mar, Generalized anxiety disorder F41.1 and Major depressive disorder, recurrent episode with anxious distress F33.9 [place] [id number] [place] [address] 50299- 2436 29 Feb, 2017 Conjunctivitis, bacterial H10.9 [place] [id number] [place] [address] 36131- 5303 27 Feb, 2017 [facility] [id number] [address] Feb, Conjunctivitis, bacterial H10.9 [facility] [address] [address]- 9719 15 Feb, 2017 [facility] [id number] [place] [address] 16627 -6451 10 Feb, 2017 Dysuria R30.0 ; Acute cystitis N30.00 and BMI 40.0-44.9, adult Z68.41 [facility] [address] [address]- 9414 08 Feb, 2017 [facility] [id number] [place] [address] 19892- 1145 Feb, Generalized anxiety disorder F41.1 and Major depressive disorder, recurrent episode with anxious distress F33.9 [place] [id number] [place] [address] 93684- 8369 Feb, Mood disorder F39 and BMI 40.0-44.9, adult Z68.41 [place] [id number] [place] [address] 09349- 8783 Jan, [place] [id number] [place] [address] 45300- 0053 Jan, [place] [id number] [place] [address] 76121- 5175 Jan, Hypothyroid E03.9 [place] [id number] [place] [address] 50311- 6170 Jan, [place] [id number] [place] [address] 53617- 7117 Jan, Chronic kidney disease, unspecified N18.9 ; Hypokalemia E87.6 ; Essential (primary) hypertension I10 ; Fibromyalgia M79.7 ; Coronary artery disease involving kaibab coronary artery of kaibab heart, angina presence unspecified I25.10 ; Hypothyroid E03.9 and Encounter for immunization Z23 [place] [id number] [place] [address] 11467- 4366 Jan, Hypothyroid E03.9 [place] [address] [place] [id number] [place] [address] 81197- 2165 Jan, [place] [id number] [place] [address] 34979- 6663 Dec, Vitamin D deficiency E55.9 [place] [id number] [place] [address] 04425- 9836 Dec, Primary osteoarthritis of left knee M17.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 [place] [id number] [address]- 4937 19 Dec, 2016 Fibromyalgia M79.7 [facility] [address] [place] [id number] [place] [address] 20016- 4549 18 Dec, 2016 Mood disorder F39 [facility] [address] [place] [id number] [place] [address] 51072- 2030 13 Dec, 2016 [facility] [address] [place] [id number] [place] [address] 92406- 0000 13 Dec, 2016 Generalized anxiety disorder F41.1 and Major depressive disorder, recurrent episode with anxious distress F33.9 [facility] [address] [place] [id number] [place] [address] 07834- 0490 11 Dec, 2016 [facility] [address] [place] [id number] [place] [address] 68736- 7342 08 Dec, 2016 Streptococcal meningitis G00.2 [facility] [address] [place] [id number] [place] [address] 13875- 2516 07 Dec, 2016 Streptococcal meningitis G00.2 [facility] [id number] [place] [address] 44834- 6775 07 Dec, 2016 [facility] [address] [place] [id number] [place] [address] 90239- 8033 06 Dec, 2016 Streptococcal meningitis G00.2 [facility] [id number] [place] [address] 17169- 5811 06 Dec, 2016 [facility] [id number] [place] [address] 61517- 2549 06 Dec, 2016 Major depressive disorder, recurrent episode with anxious distress F33.9 [facility] [address] [place] [id number] [place] [address] 77035- 2072 Nov, Fever, unspecified fever cause R50.9 [facility] [id number] [place] [address] 59581- 2075 Nov, [facility] [address] [place] [id number] [place] [address] 76175- 9289 Nov, Hypothyroid E03.9 [facility] [address] [place] [id number] [place] [address] 14379- 9675 Nov, Generalized anxiety disorder F41.1 and Major depressive disorder, recurrent episode with anxious distress F33.9 [facility] [address] [place] [id number] [place] [address] 15651- 9319 Nov, [facility] [address] [place] [id number] [place] [address] [id number] Oct, Dental examination Z01.20 [facility] [address] [place] [id number] [place] [address] 26243- 7617 Oct, Generalized anxiety disorder F41.1 and Major depressive disorder, recurrent episode with anxious distress F33.9 [facility] [address] [place] [id number] [place] [address] 07130- 9008 Oct, Chronic kidney disease, stage 4 (severe) N18.4 [facility] [address] [place] [id number] [place] [address] 51747- 2386 Oct, [facility] [address] [place] [id number] [place] [address] 47689- 4885 Oct, Fibromyalgia M79.7 [facility] [address] [place] [id number] [place] [address] 82814- 2490 Oct, [facility] [address] [place] [id number] [place] [address] 55875- 7340 Oct, Generalized anxiety disorder F41.1 ; Major depressive disorder, recurrent episode with anxious distress F33.9 and Bipolar disorder, current episode manic without psychotic features F31.10 [facility] [address] [place] [id number] [place] [address] 01815- 3213 Sep, [facility] [address] [place] [id number] [place] [address] 39804- 7411 Sep, [facility] [address] [place] [id number] [place] [address] 50553- 0865 Sep, Vitamin D deficiency E55.9 [place] [address] [address]- 4043 14 Sep, 2016 Vitamin D deficiency E55.9 [place] [id number] [place] [address] 66641- 2691 Sep, [place] [address] [place] [id number] [place] [address] 10913- 5656 Sep, Chronic kidney disease, stage 4 (severe) N18.4 ; Hypothyroid E03.9 ; Restless leg G25.81 ; Fibromyalgia M79.7 ; Essential ( primary) hypertension I10 ; Vitamin D deficiency E55.9 ; Dyspepsia R10.13 ; Anemia in chronic kidney disease D63.1 ; Chronic kidney disease, unspecified N18.9 ; Coronary artery disease involving kaibab coronary artery of kaibab heart , angina presence unspecified I25.10 ; Screening breast examination Z12.39 and Low back pain M54.5 [place] [address] [place] [id number] [place] [address] 21154- 2382 August, Generalized anxiety disorder F41.1 and Major depressive disorder, recurrent episode with anxious distress F33.9 [place] [address] [place] [id number] [place] [address] 81518- 5736 August, Generalized anxiety disorder F41.1 and Major depressive disorder, recurrent episode with anxious distress F33.9 [place] [id number] [place] [address] 42301- 4069 August, Fibromyalgia M79.7 [place] [address] [place] [id number] [place] [address] 36789- 1731 Jul, Generalized anxiety disorder F41.1 and Major depressive disorder, recurrent episode with anxious distress F33.9 [place] [address] [place] [id number] [place] [address] 31469- 5316 Jul, Fibromyalgia M79.7 [place] [address] [place] [id number] [place] [address] 17123- 9026 Jul, Generalized anxiety disorder F41.1 [place] [id number] [place] [address] 14838- 8500 May, [place] [address] 50728- 1229 16 May, 2016 Hypothyroid E03.9 [place] [address] [place] [id number] [place] [address] 58189- 2645 May, Chronic kidney disease, stage 4 (severe) N18.4 ; Hypothyroid E03.9 ; Restless leg G25.81 ; Fibromyalgia M79.7 ; Essential ( primary) hypertension I10 ; Vitamin D deficiency E55.9 ; Dyspepsia R10.13 ; Acute non-recurrent maxillary sinusitis J01.00 ; Anemia in chronic kidney disease D63.1 ; Chronic kidney disease, unspecified N18.9 and Coronary artery disease involving kaibab coronary artery of kaibab heart, angina presence unspecified I25.10 [place] [address] [place] [id number] [place] [address] 12120- 1250 May, Vitamin D deficiency, unspecified E55.9 [place] [address] [place] [id number] [place] [address] 53729- 7222 May, Generalized anxiety disorder F41.1 and Major depressive disorder, recurrent episode with anxious distress F33.9 [place] [address] [place] [id number] [place] [address] 35166- 0735 Apr, Pain in right knee M25.561 and Pain in left knee M25.562 [place] [address] [place] [id number] [place] [address] 96337- 2623 Apr, [place] [address] [place] [id number] [place] [address] 77545- 2521 Apr, [place] [address] [place] [id number] [place] [address] 20533- 5716 Apr, [place] [id number] [place] [address] 48248- 5855 Mar, Generalized anxiety disorder F41.1 and Major depressive disorder, recurrent episode with anxious distress F33.9 [facility] [address] [place] [id number] [place] [address] 51217- 7225 Mar, Generalized anxiety disorder F41.1 and Major depressive disorder, recurrent episode with anxious distress F33.9 [place] [address] [place] [id number] [place] [address] 43156- 4731 Mar, [facility] [address] 43818- 8716 Mar, [place] [address] [place] [id number] [place] [address] 84747- 5106 Mar, [place] [address] 68074- 2262 Mar, Asthma J45.909 and Fibromyalgia M79.7 [place] [id number] [place] [address] 10571- 4665 Mar, Chronic kidney disease, stage 4 (severe) N18.4 ; Vitamin D deficiency E55.9 and Essential (primary) hypertension I10 [place] [address] [place] [id number] [place] [address] 14330- 8184 Feb, [place] [address] [place] [id number] [place] [address] 92262- 8224 Feb, Dysuria R30.0 ; Mixed stress and urge urinary incontinence N39.46 ; Fibromyalgia M79.7 and Chronic kidney disease, stage IV (severe) N18.4 [place] [address] [place] [id number] [place] [address] 00903- 2010 Feb, Chronic kidney disease, stage 4 (severe) N18.4 [place] [address] [place] [id number] [place] [address] 06133- 9199 Feb, Chronic kidney disease, stage 4 (severe) N18.4 [place] [address] [place] [id number] [place] [address] 91907- 4145 Feb, [place] [address] [place] [id number] [place] [address]- 8046 Feb, Vitamin D deficiency, unspecified E55.9 [place] [id number] 59549- 5342 Jan, [facility] [address] [id number] [place] [address] 11100- 9696 Jan, [place] [address] 54212- 7443 Dec, [place] [address] 80960- 9258 Dec, Chronic kidney disease, stage 4 (severe) N18.4 [place] [address] 12034- 4313 Dec, Dysthymic disorder F34.1 and Generalized anxiety disorder F41.1 [place] [address] 05295- 3145 Dec, [place] [address] [place] [id number] [place] [address] 80324- 3021 Dec, [place] [address] [place] [id number] [place] [address] 05485- 0064 Dec, Dysthymic disorder F34.1 and Generalized anxiety disorder F41.1 [place] [address] [place] [id number] [place] [address] 29173- 5274 Dec, Dysuria R30.0 ; Chronic kidney disease, stage 4 (severe) N18.4 ; Hypertension I10 ; Dyspepsia R10.13 ; Yeast dermatitis B37.2 ; Palpitations R00.2 ; Hypothyroid E03.9 ; Functional diarrhea K59.1 and Other seasonal allergic rhinitis J30.2 [facility] [address] [id number] [place] [address] 42913 -3320 Dec, [facility] [address] [id number] [place] [address] 99256 -6522 Nov, Dysuria R30.0 and Stress incontinence N39.3 [place] [address] [place] [id number] [place] [address] 15601- 3233 Nov, [place] [address] [place] [id number] [place] [address] 42319- 5538 Nov, [place] [address] [place] [id number] [place] [address] 95274- 6848 Nov, Osteoarthritis of knees, bilateral M17.0 [place] [address] [place] [id number] [place] [address] 66078- 9036 Nov, Dysthymic disorder F34.1 and Generalized anxiety disorder F41.1 [place] [address] 77653- 5956 Nov, [place] [address] 58597- 4632 Nov, [place] [address] 34953- 9630 Nov, Urgency of urination R39.15 [place] [address] 18627- 3919 Nov, [place] [address] [place] [id number] [place] [address] 18777- 3541 Nov, Chronic kidney disease, stage 4 (severe) N18.4 [place] [address] [place] [id number] [place] [address] 42176- 7508 Oct, Hypertension I10 ; Coronary artery disease involving kaibab coronary artery of kaibab heart, angina presence unspecified I25.10 ; Palpitations R00.2 ; Hypothyroid E03.9 ; Right foot pain M79.671 ; Functional diarrhea K59.1 and Other seasonal allergic rhinitis J30.2 [place] [address] [id number] [place] [address] 19426- 3017 Oct, Dysthymic disorder F34.1 and Generalized anxiety disorder F41.1 [place] [address] [place] [address] Sep, [facility] [id number] [place] [id number] Sep, [facility] [id number] [place] [id number]- [id number] Sep, [facility] [id number] [place] [id number] Sep, [facility] [id number] [place] [address]- [address] Sep, [place] [address] [place] [id number] [place] [id number] Sep, Dysthymic disorder F34.1 and Generalized anxiety disorder F41.1 [place] [address] [place] [id number] [place] [id number]- [address] 16 Sep, 2015 Asthma with acute exacerbation in adult J45.901 ; Dysuria R30.0 ; Chronic kidney disease, stage 4 (severe) N18.4 and History of anemia Z86.2 [place] [id number] [place] [address]- [address] Sep, Generalized anxiety disorder F41.1 and Dysthymic disorder F34.1 [place] [id number] [place] [address] 01462- 5587 August, Screening breast examination Z12.39 and Acute recurrent maxillary sinusitis J01.01 [place] [id number] [place] [address] 58673- 0618 August, Osteoarthritis of knees, bilateral M17.0 [place] [id number] [place] [address] 53976- 1379 August, Chronic kidney disease, stage 4 (severe) N18.4 ; Acute non- recurrent maxillary sinusitis J01.00 ; Urinary problem R39.89 ; Bowel habit changes R19.4 ; Functional diarrhea K59.1 and History of colon polyps Z86.010 [place] [address] [address] 29 Jul, 2015 Dysthymic disorder F34.1 and Generalized anxiety disorder F41.1 [facility] [id number] [place] [address] 46646- 7413 Jul, [facility] [id number] [place] [address] 92601- 6225 Jul, Dysthymic disorder F34.1 ; Generalized anxiety disorder F41.1 and 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 [facility] [id number] [place] [address] 00559- 8867 Jul, [facility] [id number] [place] [address] 47717- 7468 16 Jun, 2015 [facility] [id number] [place] [address] 32580- 9047 Jun, [facility] [id number] [place] [address] 90072- 4445 May, [facility] [id number] [place] [address] 93042- 6451 May, Dysthymic disorder F34.1 and Generalized anxiety disorder F41.1 [facility] [id number] [place] [address] 26221- 1048 Apr, Kidney disease N28.9 [facility] [id number] [place] [address] 21794- 6961 Apr, Generalized anxiety disorder F41.1 and Dysthymic disorder F34.1 [facility] [id number] [place] [address] 58402- 6483 Apr, Chronic kidney disease, stage 4 (severe) N18.4 [facility] [address] [address] 8873 Apr, Generalized anxiety disorder F41.1 ; Major depression, recurrent F33.9 and Sleep disturbance G47.9 [place] [id number] [place] [address] 99326- 8207 Mar, Generalized anxiety disorder F41.1 and Dysthymic disorder F34.1 [facility] [id number] [place] [address] 27258- 3231 Mar, Generalized anxiety disorder F41.1 ; Dysthymic disorder F34.1 and Insomnia G47.00 [facility] [id number] [place] [address] 08670- 3914 Mar, [facility] [id number] [place] [address] 55942- 8842 Mar, [facility] [id number] [place] [address] 93230- 7938 Mar, Osteoarthritis of knees, bilateral M17.0 [place] [id number] [place] [address] 32654- 8248 Mar, Hypertension I10 ; Hypothyroid E03.9 ; Dysthymic disorder F34.1 ; Chronic kidney disease, stage 4 (severe) N18.4 and Nausea & vomiting R11.2 [place] [id number] [place] [address] 87314- 9587 Mar, Generalized anxiety disorder F41.1 ; Dysthymic disorder F34.1 and Insomnia G47.00 [place] [id number] [place] [address] 57981- 3636 Mar, Dehydration E86.0 ; Chronic kidney disease, stage 4 (severe ) N18.4 and Nausea & vomiting R11.2 [facility] [id number] [place] [address] 11923 -7585 Mar, Gastroenteritis K52.9 [facility] [id number] [place] [address] 25175- 6310 Mar, [facility] [id number] [place] [address] 43485- 8362 Mar, [facility] [id number] [place] [address] 69813- 3711 Feb, Dysthymic disorder F34.1 and Generalized anxiety disorder F41.[address] 92923- 3017 Jan, UTI (urinary tract infection) N39.0 ; Asthma J45.909 ; Coronary artery disease involving kaibab coronary artery of kaibab heart, angina presence unspecified I25.10 ; Hypertension I10 ; Hypothyroid E03.9 ; Vitamin D deficiency E55.9 ; Insomnia G47.00 ; Palpitations R00.2 ; Depressed F32.9 ; Restless leg G25.81 and Anxiety F41.[address] 17173- 9657 Jan, Dysthymic disorder F34.1 and Generalized anxiety disorder F41.[address] 29388- 8735 Jan, [address] 19228- 4238 Dec, [address] 72543- 2498 Dec, Alkalosis 276.3 ; Chronic kidney disease, Stage IV (severe) 585.4 ; Hyperpotassemia 276.7 ; Secondary hyperparathyroidism, renal 588.81 ; Proteinuria 791.0 ; Unspecified vitamin D deficiency 268.9 ; Anemia in chronic kidney disease 285.21 ; Other and unspecified hyperlipidemia 272.4 ; Hypertension, essential, benign 401.1 and Chronic kidney disease (CKD), stage III (moderate) 585.[address] 67061- 9942 Dec, [address] 15848- 6276 Dec, Depressive disorder, not elsewhere classified 311 and Generalized anxiety disorder 300.[address] 44190- 0024 Dec, [facility] [id number] [place] [address] 69160- 4978 Dec, [facility] [id number] [place] [address] 37645- 8596 Nov, Depressive disorder, not elsewhere classified 311 and Generalized anxiety disorder 300.02 [facility] [id number] [place] [address] 06425- 0931 Nov, Arthritis of both knees 716.96 [place] [id number] [place] [address] 93702- 4036 Nov, PAF (paroxysmal atrial fibrillation) 427.31 ; CAD (coronary artery disease) 414.00 ; Chest pain 786.50 and Chronic kidney disease (CKD) stage G4/A1, severely decreased glomerular filtration rate (GFR) between 15-29 mL/min/1.73 square meter and albuminuria creatinine ratio less than 30 mg/g 585.4 [place] [id number] [place] [address] 95079- 0903 Oct, Coronary atherosclerosis of unspecified type of vessel, kaibab or graft 414.00 ; Chronic kidney disease, Stage IV (severe) 585.4 ; Hypertension 401.9 and Edema 782.3 [place] [id number] [place] [address] 83877- 5049 Oct, Depressive disorder, not elsewhere classified 311 and Generalized anxiety disorder 300.02 [facility] [id number] [place] [address] 66754- 7726 Oct, Depressive disorder, not elsewhere classified 311 and Generalized anxiety disorder 300.02 [facility] [id number] [place] [address] 93011- 6738 Oct, [facility] [id number] [place] [address] 47256- 8978 Oct, [facility] [id number] [place] [address] 03754- 6670 Sep, [facility] [id number] [place] [address] 11198- 7990 Sep, Chronic kidney disease, Stage IV (severe) 585.4 [facility] [id number] [place] [address] 49853- 7805 Sep, [facility] [id number] [place] [address] 83673- 0444 Sep, Coronary atherosclerosis of unspecified type of vessel, kaibab or graft 414.00 ; Hypertension 401.9 ; Edema 782.3 and Hypothyroidism 244.9 [facility] [id number] [place] [address] 64487- 8265 Sep, Coronary atherosclerosis of unspecified type of vessel, kaibab or graft 414.00 ; Hypertension 401.9 ; Fibromyalgia 729.1 ; Edema 782.3 ; Hypothyroidism 244.9 and Anemia 285.9 [place] [id number] [place] [address] 67819- 4002 Sep, Anxiety disorder, unspecified 300.00 and Depressive disorder , not elsewhere classified 311 [facility] [id number] [place] [address] 48464- 3522 Sep, [facility] [id number] [place] [address] 91922- 7576 August, Generalized anxiety disorder 300.02 [facility] [id number] [place] [address] 26903- 9177 August, Closed fracture of lateral malleolus 824.2 [facility] [id number] [place] [address] 25009- 3925 Jul, [facility] [id number] [place] [address] 14658- 0926 Jul, [facility] [id number] [place] [address] 98376- 6868 Jun, [facility] [id number] [place] [address] 77249- 3999 Jun, [facility] [place] [facility] [address] [id number] [place] [address]- 9035 13 Jun, 2014 [facility] [place] [facility] [address] [id number] [place] [address]- 4934 13 Jun, 2014 [facility] [place] [facility] [address] [id number] [place] [address]- 5958 Jun, 2014 [facility] [place] [facility] [address] [id number] [place] [address]- 0165 02 Jun, 2014 [facility] [place] [facility] [address] [id number] [place] [address]- 3440 May, 2014 [facility] [place] [facility] [address] [id number] [place] [address]- 5295 19 May, 2014 [facility] [place] [facility] [address] [facility] [id number] [place] [address]- 2712 18 May, 2014 [facility] [place] [facility] [address] [id number] [place] [address]- 4517 18 May, 2014 [facility] [place] [facility] [address] [id number] [place] [address]- 1318 16 May, 2014 [facility] [place] [facility] [address] [facility] [id number] [place] [address]- 4002 16 May, 2014 [facility] [place] [facility] [address] [facility] [id number] [place] [address]- 6689 13 May, 2014 [facility] [place] [facility] [address] [id number] [place] [address]- 9858 13 May, 2014 [facility] [place] [facility] [address] [id number] [place] [address]- 2545 10 May, 2014 [facility] [place] [facility] [address] [id number] [place] [address]- 5428 10 May, 2014 [facility] [place] [facility] [address] [id number] [place] [address]- 7655 Apr, [facility] [place] [facility] [address] [id number] [place] [address]- 4950 Apr, [facility] [place] [facility] [address] [id number] [place] [address]- 2692 Mar, [facility] [place] [facility] [address] [id number] [place] [address]- 1033 Mar, [facility] [place] [facility] [address] [id number] [place] [address]- 4880 Mar, [facility] [place] [facility] [address] [id number] [place] [address]- 8708 Mar, [facility] [place] [facility] [address] [id number] [place] [address]- 4954 Mar, [facility] [place] [facility] [address] [id number] [place] [address]- 2435 Mar, [facility] [place] [facility] [address] [id number] [place] [address]- 6227 Mar, [facility] [place] [facility] [address] [id number] [place] [address]- 3584 Feb, [facility] [place] [facility] [address] [id number] [place] [address]- 2163 Feb, [facility] [place] [facility] [address] [id number] [place] [address]- 2129 Feb, [facility] [place] [facility] [address] [id number] [place] [address]- 0065 Jan, [facility] [place] [facility] [address] [id number] [address]- 2720 Jan, [facility] [place] [facility] [address] [id number] [place] [address]- 9742 Jan, [facility] [place] [facility] [address] [id number] [place] [address]- 2254 Jan, [facility] [place] [facility] [address] [id number] [address]- 7648 Jan, [facility] [place] [facility] [address] [id number] [place] [address]- 1028 Jan, [facility] [place] [facility] [address] [id number] [place] [address]- 2672 Jan, [facility] [place] [facility] [address] [id number] [place] [address]- 3131 Jan, [facility] [place] [facility] [address] [id number] [place] [address]- 8900 Jan, [facility] [place] [facility] [address] [id number] [place] [address]- 0423 Jan, [facility] [place] [facility] [address] [id number] [place] [address]- 6404 Nov, [facility] [place] [facility] [address] [id number] [place] [address]- 7066 Nov, [facility] [place] [facility] [address] [id number] [place] [address]- 4166 Nov, [facility] [place] [facility] [address] [id number] [place] [address]- 1137 Oct, [facility] [place] [facility] [address] [id number] [place] [address]- 8937 Oct, [facility] [place] [facility] [address] [id number] [place] [address]- 4294 Oct, [facility] [place] [facility] [address] [id number] [place] [address]- 6644 Oct, [facility] [place] [facility] [address] [id number] [place] [address]- 8766 Oct, [facility] [place] [facility] [address] [id number] [place] [address]- 8450 Oct, [facility] [place] [facility] [address] [id number] [place] [address]- 6280 Oct, [facility] [place] [facility] [address] [id number] [place] [address]- 0059 Oct, [facility] [place] [facility] [address] [id number] [place] [address]- 4693 Oct, [facility] [place] [facility] [address] [id number] [place] [address]- 2242 Sep, [facility] [place] [facility] [address] [id number] [place] [address]- 2932 Sep, [facility] [place] [facility] [address] [id number] [place] [address]- 6199 Sep, [facility] [place] [facility] [address] [id number] [place] [address]- 6698 Sep, [facility] [place] [facility] [address] [id number] [place] [address]- 1138 Sep, [facility] [place] [facility] [address] [id number] [place] [address]- 9459 Sep, [facility] [place] [facility] [address] [id number] [place] [address]- 3604 Sep, [facility] [place] [facility] [address] [id number] [place] [address]- 4466 Sep, [facility] [place] [facility] [address] [id number] [place] [address]- 8365 Sep, [facility] [place] [facility] [address] [id number], [place] [address]- 9362 August, [facility] [place] [facility] [address] [id number], [place] [address]- 9768 August, [facility] [place] [facility] [address] [id number] [place] [address]- 5096 August, [facility] [place] [facility] [address] [id number] [place] [address]- 7049 August, [facility] [place] [facility] [address] [id number] [place] [address]- 3658 August, [facility] [place] [facility] [address] [id number] [place] [address]- 4149 August, [facility] [place] [facility] [address] [id number] [place] [address]- 6260 Jul, [facility] [place] [facility] [address] [id number] [place] [address]- 3676 Jul, [facility] [place] [facility] [address] [id number] [place] [address]- 6412 Jul, [facility] [place] [facility] [address] [id number] [place] [address]- 5613 Jul, [facility] [place] [facility] [address] [id number] [place] [address]- 2601 Jul, [facility] [place] [facility] [address] [id number] [place] [address]- 0281 Jul, [facility] [place] [facility] [address] [id number] [place] [address]- 7252 Jun, [facility] [place] [facility] [address] [id number] [place] [address]- 7951 Jun, [facility] [place] [facility] [address] [id number] [place] [address]- 0154 May, [facility] [place] [facility] [address] [id number] [place] [address]- 7720 May, [facility] [place] [facility] [address] [id number] [place] [address]- 6904 May, [facility] [place] [facility] [address] [id number] [place] [address]- 2230 May, [facility] [place] [facility] [address] [id number] [place] [address]- 6547 Apr, [facility] [place] [facility] [address] [id number] [place] [address]- 8935 Apr, [facility] [place] [facility] [address] [id number] [place] [address]- 2263 Mar, [facility] [place] [facility] [address] [id number] [place] [address]- 7602 18 Mar, 2013 [facility] [place] [facility] [address] [id number] [place] [address]- 8726 17 Mar, 2013 [facility] [place] [facility] [address] [id number] [place] 4911 17 Mar, 2013 [facility] [place] [facility] [address] [id number] [place] [address]- 5854 05 Mar, 2013 [facility] [place] [facility] [address] [id number] [place] [address]- 2440 05 Mar, 2013 [facility] [place] [facility] [address] [id number] [place] [address]- 1535 Feb, [facility] [place] [facility] [address] [id number] [place] [address]- 7078 Feb, [facility] [place] [facility] [address] [id number] [place] [address]- 7204 14 Feb, 2013 [facility] [place] [facility] [address] [id number] [place] [address]- 1218 Feb, [facility] [place] [facility] [address] [id number], [place] [address]- 2066 Feb, [facility] [place] [facility] [address] [id number], [place] [address]- 4167 Feb, [facility] [place] [facility] [address] [id number], [place] [address]- 2813 24 Jan, 2013 [facility] [place] [facility] [address] [id number] [place] [address]- 5764 24 Jan, 2013 [facility] [place] [facility] [address] [id number] [place] [address]- 1099 10 Jan, 2013 [facility] [place] [facility] [address] [id number]- 0345 10 Jan, 2013 [facility] [place] [facility] [address] [id number] [place] [address]- 1933 Jan, [facility] [address] [id number] [place] [address]- 0482 Jan, [facility] [place] [facility] [address] [id number] [place] [address]- 9376 Dec, [facility] [place] [facility] [address] [id number] [place] [address]- 1376 Dec, [facility] [place] [facility] [address] [id number] [place] [address]- 0325 Nov, [facility] [place] [facility] [address] [id number] [place] [address]- 6823 Nov, [facility] [place] [facility] [address] [id number] [place] [address]- 9857 Oct, [facility] [address] [id number] [place] [address]- 6218 Oct, [facility] [place] [facility] [address] [id number] [place] [address]- 7630 Oct, [facility] [place] [facility] [address] [id number] [place] [address]- 8210 Oct, [facility] [place] [facility] [address] [id number] [place] [address]- 1671 Oct, [facility] [place] [facility] [address] [id number] [place] [address]- 2402 Oct, [facility] [place] [facility] [address] [id number] [place] [address]- 3686 Sep, [facility] [place] [facility] [address] [id number] [place] [address]- 7867 Sep, [facility] [place] [facility] [address] [id number] [place] [address]- 6568 Sep, [facility] [place] [facility] [address] [id number] [place] [address]- 9899 Sep, [facility] [place] [facility] [address] [id number] [place] [address]- 4743 August, [facility] [address] [id number] [place] 7785 August, [facility] [address] [id number] [place] [address]- 2256 August, [facility] [address] [id number] [place] [address]- 7218 August, [facility] [address] [id number] [place] [address]- 16[address] August, [facility] [address] [id number] [place] [address] Jul, [facility] [address] [id number] [place] [address] Jul, [facility] [address] [id number] [place] [address] Jul, [facility] [address] [id number] [place] [address] Jul, [facility] [address] [id number] [place] [address] Jul, [facility] [address] [id number] [place] [address] Jul, [facility] [address] [id number] [place] [address] Jul, [facility] [address] [id number] [place] [address] Jul, [facility] [address] [id number] [place] [address] Jul, [facility] [address] [id number] [place] [address] Jul, [facility] [address] [facility] [id number] [id number] Jun, [facility] [address] [id number] [place] [address] Jun, [facility] [address] [id number] [place] [address] Jun, [facility] [address] [id number] [place] [address] Jun, [facility] [address] [id number] [place] [address] Jun, [facility] [address] [id number] [place] [address] May, [facility] [address] [id number] [place] [address] May, [facility] [address] [id number] [place] [address] May, [facility] [address] [id number] [place] [address] Apr, [facility] [address] [id number] [place] [address] Apr, [facility] [address] [id number] [place] [address] 1989 Apr, [facility] [address] [id number] [place] [address] Apr, [facility] [place] [facility] [address] [id number], [place] [address] Apr, [facility] [place] [facility] [address] [id number] [place] [address] Apr, [facility] [address] [id number] [place] [address] Mar, [facility] [place] [facility] [address] [id number] [place] [address] Mar, [facility] [address] [id number] [place] [address] 18 Mar, 2012 [facility] [place] [facility] [address] [id number] [place] [address] Mar, [facility] [place] [facility] [address] [id number] [place] [address] Feb, [facility] [place] [facility] [address] [id number] [place] [address] Feb, [facility] [place] [facility] [address] [id number] [place] [address] Feb, [facility] [place] [facility] [address] [id number] [place] [address] Feb, [facility] [place] [facility] [address] [id number] [place] [address] Feb, [facility] [place] [facility] [address] [id number] [place] [address] Feb, [facility] [place] [facility] [address] [id number] [place] [address] Feb, [facility] [place] [facility] [address] [id number] [place] [address] Feb, [facility] [place] [facility] [address] [facility] [id number] [place] [address] Feb, [facility] [place] [facility] [address] [id number] [place] [address] Feb, [facility] [place] [facility] [address] [id number], [place] [address] Feb, [facility] [place] [facility] [address] [id number] [place] [address] Feb, [facility] [place] [facility] [address] [id number] [place] [address] Feb, [facility] [place] [facility] [address] [id number], [place] [address] Feb, [facility] [place] [facility] [address] [id number] [place] [address] Feb, [facility] [place] [facility] [address] [id number] [place] [address] Feb, [facility] [place] [facility] [address] [id number] [place] [address] Jan, [facility] [place] [facility] [address] [id number] [place] [address] Jan, [facility] [place] [facility] [address] [id number] [place] [address] Jan, [facility] [place] [facility] [address] [id number] [place] [address] Jan, [facility] [place] [facility] [address] [id number] [place] [address] Jan, [facility] [place] [facility] [address] [id number] [place] [address] Jan, [facility] [place] [facility] [address] [id number] [place] [address] Jan, [facility] [place] [facility] [address] [id number] [place] [address]- [address] Jan, [facility] [place] [facility] [address] [id number] [place] [address]- 4078 Jan, [facility] [place] [facility] [address] [id number] [address] Jan, [facility] [place] [facility] [address] [id number] [place] [address] 15 Jan, 2012 [facility] [place] [facility] [address] [id number] [place] [address] Jan, [facility] [place] [facility] [address] [id number] [place] [address] Dec, [facility] [place] [facility] [address] [id number], [place] [address] 26 Sep, 2011 [facility] [place] [facility] [address] [id number] [place] [address]- [address] 24 Sep, 2011 [facility] [place] [facility] [address] [id number] [place] [address]- [address] 23 Sep, 2011 [facility] [place] [facility] [address] [id number] [place] [address] 2546 22 Sep, 2011 [facility] [place] [facility] [address] [id number] [place] [address] 2546 21 Sep, 2011 [facility] [place] [facility] [address] [id number] [place] [address]- [address]476 20 Sep, 2011 [facility] [place] [facility] [address] [id number] [place] [address]- 9857 20 Sep, 2011 [facility] [place] [facility] [address] [id number] [place] [address]- 4556 07 Sep, 2011 [facility] [place] [facility] [address] [id number] [place] [address]- 8147 06 Sep, 2011 [facility] [place] [facility] [address] [id number] [place] [address]- 9069 06 Sep, 2011 [facility] [place] [facility] [address] [id number] [place] [address]- 3[address] 05 Dec, 2011 [facility] [place] [facility] [address] [id number] [place] [address]- [address]30 23 Nov, 2011 [facility] [place] [facility] [address] [id number] [place] [address]- 3225 17 Nov, 2011 [facility] [place] [facility] [address] [id number] [place] [address]- 7890 13 Nov, 2011 [facility] [place] [facility] [address] [id number] [place] [address]- 6493 10 Nov, 2011 [facility] [place] [facility] [address] [id number] [place] [address]- 9641 08 Nov, 2011 [facility] [place] [facility] [address] [id number] [place] [address]- [address]228 Nov, [facility] [address] [id number] [place] [address] 3836 Nov, [facility] [address] [id number] [place] [address] 6116 Nov, [facility] [address] [id number] [place] [address]- 9497 Oct, [facility] [address] [id number] [place] [address] 70[address] Oct, [facility] [address] [id number] [place] [address] 9444 Oct, [facility] [address] [id number] [place] [address]- 7907 Oct, [facility] [address] [id number] [place] [address]- 6841 Oct, [facility] [address] [id number] [place] [address]- 1819 Oct, [facility] [address] [id number] [place] [address]- 7551 Oct, [facility] [address] [id number] [place] [address]- 5871 Sep, [facility] [place] [facility] [address] [id number] [place] [address]- [address]508 Sep, [facility] [address] [id number] [place] [address]- 7223 August, [facility] [place] [facility] [address] [id number] [place] [address]- 0286 August, [facility] [place] [facility] [address] [id number] [place] [address]- 4046 August, [facility] [address] [id number] [place] [address]- 1856 August, [facility] [address] [id number] [place] [address]- 9303 Jul, [facility] [place] [facility] [address] [id number] [place] [address]- 4396 Jul, [facility] [place] [facility] [address] [id number] [place] [address]- 7713 Jul, [facility] [place] [facility] [address] [id number] [place] [address]- 1058 Jul, [facility] [place] [facility] [address] [id number] [place] [address]- 0471 Jul, [facility] [place] [facility] [address] [id number] [place] [address]- 7036 Jul, [facility] [place] [facility] [address] [id number] [place] [address]- 4911 Jul, [facility] [place] [facility] [address] [id number] [place] [address]- 8104 Jul, [facility] [place] [facility] [address] [id number] [place] [address]- 3587 Jul, [facility] [place] [facility] [address] [id number] [place] [address]- 6762 Jun, [facility] [place] [facility] [address] [id number] [place] [address]- 6404 19 Jun, 2011 [facility] [place] [facility] [address] [id number], [place] [address] 15 Jun, 2011 [facility] [place] [facility] [address] [id number] [place] [address]- 9480 14 Jun, 2011 [facility] [place] [facility] [address] [id number] [place] [address]- 8115 12 Jun, 2011 [facility] [place] [facility] [address] [id number], [place] [address]- [address] 09 Jun, 2011 [facility] [place] [facility] [address] [id number], [place] [address]- 2562 Jun, [facility] [address] [id number] [place] [address]- 5086 May, [facility] [place] [facility] [address] [id number] [place] [address]- 3256 May, [facility] [place] [facility] [address] [id number] [place] [address]- 8316 May, [facility] [place] [facility] [address] [id number] [place] [address]- 4976 May, [facility] [place] [facility] [address] [id number] [place] [address]- 2666 May, [facility] [place] [facility] [address] [id number] [place] [address]- 2656 Apr, [facility] [address] [id number] [place] [address]- 5305 Apr, [facility] [address] [id number] [place] [address]- 1821 Apr, [facility] [place] [facility] [address] [id number] [place] [address]- 2178 Apr, [facility] [address] [id number] [place] [address]- 1919 Apr, [facility] [address] [id number] [place] [address]- 9206 30 Mar, 2011 [facility] [place] [facility] [address] [id number] [place] [address] 2546 Mar, [facility] [place] [facility] [address] [id number] [place] [address] 2546 Mar, [facility] [place] [facility] [address] [id number] [place] [address]- 2546 Mar, [facility] [place] [facility] [address] [id number] [place] [address] 2549 Mar, [facility] [place] [facility] [address] [id number] [place] [address]- 8353 Mar, [facility] [place] [facility] [address] [id number] [place] [address]- 5956 Mar, [facility] [place] [facility] [address] [id number] [place] [address]- 8687 Feb, [facility] [place] [facility] [address] [id number] [place] [address]- 3264 Feb, [facility] [place] [facility] [address] [id number] [place] [address]- 4400 Feb, [facility] [place] [facility] [address] [id number] [place] [address]- 7986 Feb, [facility] [place] [facility] [address] [id number] [place] [address]- 6365 Jan, [facility] [place] [facility] [address] [id number] [place] [address]- 2151 Jan, [facility] [place] [facility] [address] [id number] [place] [address]- 3690 Jan, [facility] [place] [facility] [address] [id number] [place] [address]- 3033 Jan, [facility] [place] [facility] [address] [id number] [place] [address]- 5349 Nov, [facility] [place] [facility] [address] [id number] [place] [address]- 5642 Mar, [facility] [place] [facility] [address] [id number] [place] [address]- 1048 Mar, [facility] [place] [facility] [address] [id number] [place] [address]- 8591 Mar, [facility] [place] [facility] [address] [id number] [place] [address]- 8251 Mar, [facility] [place] [facility] [address] [id number], [place] [address] 2546 Mar, [facility] [address] [facility] [id number] [place] [address]- 2546 Mar, [facility] [address] [facility] [id number], [place] [address]- 2546 Feb, [facility] [address] [facility] [id number], [place] [address]- 2546 Feb, [facility] [address] [facility] [id number], [place] [address]- 5728 Jan, [facility] [address] [facility] [id number], [place] [address]- 2519 Jan, [facility] [address] [facility] [id number], [place] [address]- 8196 Jan, IMMUNIZATIONS No Known Immunizations SOCIAL HISTORY Never Assessed REASON FOR VISIT Future Order PLAN OF CARE VITAL SIGNS MEDICATIONS Unknown Medications RESULTS Name Result Date Reference Range CT Scan : Chest w/ Contrast 2017-08-16 PROCEDURES No Known procedures INSTRUCTIONS MEDICATIONS ADMINISTERED [...]
--- OUTSIDE RECORDS SUMMARY | 2018-05-29 08:48 | XMS REPORT ---
Author Author ISABEL MAE [facility] Address [address] [place] [address] Care Team Providers Care Internal Revenue Service Agent Name Role Phone ISABEL MAE Unavailable PROBLEMS Type Condition ICD9-CM Code [id number] Code Onset Dates Condition Status SNOMED Code Problem Long-term use of high-risk medication Z79.899 Active 214783982 Problem Abnormal chest CT R93.8 Active 201484119 Problem Generalized anxiety disorder F41.1 Active 28225878 Problem Low back pain M54.5 Active 889900233 Problem Dysthymic disorder F34.1 Active 58769591 Problem Depressed F32.9 Active 27289695 Problem Coronary artery disease involving [place] coronary artery of [place] heart, angina presence unspecified I25.10 Active 4264747741762 Problem Hypothyroid E03.9 Active 35379139 Problem Insomnia G47.00 Active 748374272 Problem Vitamin D deficiency E55.9 Active 99291353 Problem Asthma J45.909 Active 949290074 Problem Chronic kidney disease, unspecified N18.9 Active 880345792 Problem Palpitations R00.2 Active 47878225 Problem Anemia in chronic kidney disease D63.1 Active [id number] Problem Primary osteoarthritis of left knee M17.12 Active 410014649 Problem Bipolar disorder, current episode manic without psychotic features F31.10 Active 204854345 Problem Restless leg syndrome G25.81 Active 31715054 Problem Seasonal allergic rhinitis due to pollen J30.1 Active 56209006 Problem Functional diarrhea K59.1 Active 43251586 Problem Chronic kidney disease, stage 4 (severe) N18.4 Active 014703367 Problem Restless leg G25.81 Active 59806835 Problem Mood disorder F39 Active 42177044 Problem Degenerative tear of medial meniscus of left knee M23.204 Active 519986272 Problem Body mass index (BMI) of 40.0-44.9 in adult Z68.41 Active 281904546 Problem Stage 3 chronic kidney disease N18.3 Active 438414339 Problem Asthma with acute exacerbation in adult J45.901 Active 079150998 Problem Other seasonal allergic rhinitis J30.2 Active 789272706 Problem History of colon polyps Z86.010 Active 161761200 Problem History of anemia Z86.2 Active 715527726 Problem Fibromyalgia M79.7 Active 069933950 Problem Essential (primary) hypertension I10 Active 48828929 Problem Hypokalemia E87.6 Active 75135252 Problem Mixed stress and urge urinary incontinence N39.46 Active 387436425 ALLERGIES No Information ENCOUNTERS Encounter Location Date Diagnosis [place] [address] [address] Nov, [place] [address] 96454- 0323 Nov, Complicated UTI (urinary tract infection) N39.0 [place] [address] 53189- 2172 Oct, [place] [address] [place] [id number] [place] [address] 33021- 5086 Oct, Generalized anxiety disorder F41.1 and Major depressive disorder, recurrent episode with anxious distress F33.9 [place] [address] [place] [id number] [place] [address] 33108- 4208 Oct, [place] [address] [place] [id number] [place] [address] 97442- 2346 Oct, Fibromyalgia M79.7 [place] [address] 89693- 0683 Sep, Restless leg syndrome G25.81 and Restless leg G25.81 [place] [address] 42507- 8404 Sep, [place] [address] [place] [id number] [place] [address] 34135- 9028 Sep, Seasonal allergic rhinitis due to pollen J30.1 ; Screening for breast cancer Z12.31 ; Chest pain at rest R07.9 ; Restless leg syndrome G25.81 ; Essential (primary) hypertension I10 and Depressed F32.9 [facility] [place] [address] [address]- 0670 August, Fibromyalgia M79.7 [facility], [place] [address] [place] [id number] [place] [address] 68582- 3911 August, [facility] [place] [address] 78419- 7149 August, [facility] [place] [address] 25037- [address]33 August, Abnormal chest CT R93.8 [place] [address] 95424- 5416 August, Generalized anxiety disorder F41.1 and Major depressive disorder, recurrent episode with anxious distress F33.9 [place] [address] 35130- 5676 August, Abnormal chest CT R93.8 [facility], [place] [address] [place] [id number] [place] [address] 64856- 6559 Jul, [facility], [place] [address] 27589- 9229 Jul, Chronic kidney disease, stage 4 (severe) N18.4 [place] [address] [place] [id number] [place] [address] 98336- 6752 Jul, [facility], [place] [address] [place] [id number] [place] [address] 64358- 2162 Jul, Restless leg G25.81 ; Mixed stress and urge urinary incontinence N39.46 and Fibromyalgia M79.7 [facility], [place] [address] [place] [id number] [place] [address] 42090- 6446 Jul, Chronic kidney disease, stage 4 (severe) N18.4 [facility] [place] [address] [place] [id number] [place] [address] 76769- 7482 Jun, Orthostatic hypotension I95.1 ; Chronic kidney disease, stage 4 (severe) N18.4 ; Chest wall discomfort R07.89 and Body mass index (BMI) of 40.0-44.9 in adult Z68.41 [facility], [place] [address] [place] [id number] [place] [address] 33543- 9087 Jun, [facility], [place] [address] [place] [id number] [place] [address] 50362- 8621 Jun, Orthostatic hypotension I95.1 [facility], [place] [address] [place] [id number] [place] [address] 84886- 8486 Jun, [facility] [address] 72488 -9769 Jun, Orthostatic hypotension I95.1 ; Dysuria R30.0 and Acute cystitis without hematuria N30.00 [place] [address] [place] [id number] [place] [address] 40762- 9083 Jun, [facility], [place] [address] [place] [id number] [place] [address] 09113- 3703 Jun, Chronic kidney disease, stage 4 (severe) N18.4 [place] [address] [place] [id number] [place] [address] 15584- 4718 Jun, Fibromyalgia M79.7 [facility], [place] [address] [place] [id number] [place] [address] 05512- 8784 Jun, [facility], [place] [address] [place] [id number] [place] [address] 98835- 3219 Jun, [facility], [place] [address] [place] [id number] [place] [address] 51241- [address] May, [address] R93.8 and Stage 3 chronic kidney disease N18.3 [facility], [place] [address] [place] [id number] [place] [address] 52072- 0136 May, Chronic kidney disease, stage 4 (severe) N18.4 [facility], [place] [address] [place] [id number] [place] [address] 26250- 0074 May, Chronic kidney disease, stage 4 (severe) N18.4 [facility], [place] [address] [place] [id number] [place] [address] 84883- [address] May, [address] R93.8 [facility], [place] [address] [place] [id number] [place] [address] 85449- 3341 May, [facility] [place] [address] [place] [id number] [place] [address] 23828- 9593 May, [facility], [place] [address] [place] [id number] [place] [address] 76236- 6614 May, Generalized anxiety disorder F41.1 and Major depressive disorder, recurrent episode with anxious distress F33.9 [place] [address] [place] [id number] [place] [address] 37580- 5928 May, Mood disorder F39 [place] [address] [place] [id number] [place] [address] 13711- 0838 Apr, [facility], [place] [address] [place] [id number] [place] [address] 83404- 8829 Apr, Infected skin lesion L08.9 and Muscle strain of right shoulder region, initial encounter S46.911A [place] [id number] [place] [address] 71481- 8714 Apr, Generalized anxiety disorder F41.1 and Major depressive disorder, recurrent episode with anxious distress F33.9 [facility], [place] [id number] [place] [address] 38278- 9308 Apr, [facility], [place] [address] [place] [id number] [place] [address] 87629- 7475 Apr, Recent urinary tract infection Z87.440 and Hypothyroid E03.9 [facility], [place] [id number] [place] [address] 28543- 7428 Apr, Generalized anxiety disorder F41.1 and Major depressive disorder, recurrent episode with anxious distress F33.9 [facility], [place] [address] [place] [address]- 5657 Apr, Recent urinary tract infection Z87.440 [facility], [place] [address] [place] [id number] [place] [address] 53794- 1481 28 Mar, 2017 [facility] [id number] [place] [address] 82241 -2919 Mar, Dysuria R30.0 ; Acute cystitis without hematuria N30.00 and BMI 40.0-44.9, adult Z68.41 [place] [id number] [place] [address] 21854- 3823 14 Mar, 2017 [place] [address] [place] [id number] [place] [address] 17463- 1682 Mar, [place] [id number] [place] [address] 09352- 6338 Mar, Generalized anxiety disorder F41.1 and Major depressive disorder, recurrent episode with anxious distress F33.9 [place] [id number] [place] [address] 02023- 7334 29 Feb, 2017 Conjunctivitis, bacterial H10.9 [place] [id number] [place] [address] 78348- 3567 27 Feb, 2017 [facility] [address] [address] Feb, Conjunctivitis, bacterial H10.9 [facility], [place] [address] [place] [address]- 9158 15 Feb, 2017 [facility] [id number] [place] [address] 79303 -3381 10 Feb, 2017 Dysuria R30.0 ; Acute cystitis N30.00 and BMI 40.0-44.9, adult Z68.41 [facility], [place] [address] [address]- 7709 08 Feb, 2017 [facility], [place] [id number] [place] [address] 29704- 8320 Feb, Generalized anxiety disorder F41.1 and Major depressive disorder, recurrent episode with anxious distress F33.9 [place] [id number] [place] [address] 12952- 6753 Feb, Mood disorder F39 and BMI 40.0-44.9, adult Z68.41 [place] [id number] [place] [address] 70826- 0447 Jan, [place] [id number] [place] [address] 85513- 9067 Jan, [place] [id number] [place] [address] 98626- 3529 Jan, Hypothyroid E03.9 [place] [id number] [place] [address] 61550- 7428 Jan, [place] [id number] [place] [address] 68499- 3317 Jan, Chronic kidney disease, unspecified N18.9 ; Hypokalemia E87.6 ; Essential (primary) hypertension I10 ; Fibromyalgia M79.7 ; Coronary artery disease involving [place] coronary artery of [place] heart, angina presence unspecified I25.10 ; Hypothyroid E03.9 and Encounter for immunization Z23 [place] [id number] [place] [address] 10350- 0033 Jan, Hypothyroid E03.9 [place] [address] [place] [id number] [place] [address] 87275- 3249 Jan, [place] [id number] [place] [address] 01316- 6475 Dec, Vitamin D deficiency E55.9 [place] [id number] [place] [address] 44869- 7814 Dec, Primary osteoarthritis of left knee M17.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 [place] [id number] [address]- 4079 19 Dec, 2016 Fibromyalgia M79.7 [facility], [place] [address] [place] [id number] [place] [address] 07756- 5672 18 Dec, 2016 Mood disorder F39 [facility], [place] [address] [place] [id number] [place] [address] 89812- 3974 13 Dec, 2016 [facility] [place] [address] [place] [id number] [place] [address] 08747- 4407 13 Dec, 2016 Generalized anxiety disorder F41.1 and Major depressive disorder, recurrent episode with anxious distress F33.9 [facility] [place] [address] [place] [id number] [place] [address] 33366- 0576 11 Dec, 2016 [facility], [place] [address] [place] [id number] [place] [address] 28374- 8221 08 Dec, 2016 Streptococcal meningitis G00.2 [facility], [place] [address] [place] [id number] [place] [address] 54172- 3412 07 Dec, 2016 Streptococcal meningitis G00.2 [facility], [place] [id number] [place] [address] 09792- 7574 07 Dec, 2016 [facility], [place] [address] [place] [id number] [place] [address] 18784- 8796 06 Dec, 2016 Streptococcal meningitis G00.2 [facility], [place] [id number] [place] [address] 00355- 2015 06 Dec, 2016 [facility] [place] [id number] [place] [address] 53125- 2547 06 Dec, 2016 Major depressive disorder, recurrent episode with anxious distress F33.9 [facility] [place] [address] [place] [id number] [place] [address] 64324- 4396 Nov, Fever, unspecified fever cause R50.9 [facility], [place] [id number] [place] [address] 93295- 2795 Nov, [facility], [place] [address] [place] [id number] [place] [address] 69515- 5724 Nov, Hypothyroid E03.9 [facility], [place] [address] [place] [id number] [place] [address] 47327- 7141 Nov, Generalized anxiety disorder F41.1 and Major depressive disorder, recurrent episode with anxious distress F33.9 [facility], [place] [address] [place] [id number] [place] [address] 76085- 6082 Nov, [facility] [address] [place] [id number] [place] [address] [id number] Oct, Dental examination Z01.20 [facility], [place] [address] [place] [id number] [place] [address] 62953- 9280 Oct, Generalized anxiety disorder F41.1 and Major depressive disorder, recurrent episode with anxious distress F33.9 [facility] [place] [address] [place] [id number] [place] [address] 01008- 7646 Oct, Chronic kidney disease, stage 4 (severe) N18.4 [facility], [place] [address] [place] [id number] [place] [address] 08133- 2489 Oct, [facility], [place] [address] [place] [id number] [place] [address] 18077- 1848 Oct, Fibromyalgia M79.7 [facility], [place] [address] [place] [id number] [place] [address] 90613- 0864 Oct, [facility] [place] [address] [place] [id number] [place] [address] 07923- 4103 Oct, Generalized anxiety disorder F41.1 ; Major depressive disorder, recurrent episode with anxious distress F33.9 and Bipolar disorder, current episode manic without psychotic features F31.10 [facility] [place] [address] [place] [id number] [place] [address] 38344- 3403 Sep, [facility] [place] [address] [place] [id number] [place] [address] 50792- 1584 Sep, [facility] [place] [address] [place] [id number] [place] [address] 37122- 0895 Sep, Vitamin D deficiency E55.9 [place] [address], [place] [address]- 3001 14 Sep, 2016 Vitamin D deficiency E55.9 [place] [id number] [place] [address] 07853- 9729 Sep, [place] [address] [place] [id number] [place] [address] 24725- 3716 Sep, Chronic kidney disease, stage 4 (severe) N18.4 ; Hypothyroid E03.9 ; Restless leg G25.81 ; Fibromyalgia M79.7 ; Essential ( primary) hypertension I10 ; Vitamin D deficiency E55.9 ; Dyspepsia R10.13 ; Anemia in chronic kidney disease D63.1 ; Chronic kidney disease, unspecified N18.9 ; Coronary artery disease involving [place] coronary artery of [place] heart , angina presence unspecified I25.10 ; Screening breast examination Z12.39 and Low back pain M54.5 [place] [address] [place] [id number] [place] [address] 61311- 0743 August, Generalized anxiety disorder F41.1 and Major depressive disorder, recurrent episode with anxious distress F33.9 [place] [address] [place] [id number] [place] [address] 20662- 2262 August, Generalized anxiety disorder F41.1 and Major depressive disorder, recurrent episode with anxious distress F33.9 [place] [id number] [place] [address] 08783- 0391 August, Fibromyalgia M79.7 [place] [address] [place] [id number] [place] [address] 97136- 9764 Jul, Generalized anxiety disorder F41.1 and Major depressive disorder, recurrent episode with anxious distress F33.9 [place] [address] [place] [id number] [place] [address] 47741- 8630 Jul, Fibromyalgia M79.7 [place] [address] [place] [id number] [place] [address] 69694- 6913 Jul, Generalized anxiety disorder F41.1 [place] [id number] [place] [address] 96524- 1186 May, [place] [address] 81687- 5322 16 May, 2016 Hypothyroid E03.9 [place] [address] [place] [id number] [place] [address] 06407- 8756 May, Chronic kidney disease, stage 4 (severe) N18.4 ; Hypothyroid E03.9 ; Restless leg G25.81 ; Fibromyalgia M79.7 ; Essential ( primary) hypertension I10 ; Vitamin D deficiency E55.9 ; Dyspepsia R10.13 ; Acute non-recurrent maxillary sinusitis J01.00 ; Anemia in chronic kidney disease D63.1 ; Chronic kidney disease, unspecified N18.9 and Coronary artery disease involving [place] coronary artery of [place] heart, angina presence unspecified I25.10 [place] [address] [place] [id number] [place] [address] 05443- 6115 May, Vitamin D deficiency, unspecified E55.9 [place] [address] [place] [id number] [place] [address] 46727- 7843 May, Generalized anxiety disorder F41.1 and Major depressive disorder, recurrent episode with anxious distress F33.9 [place] [address] [place] [id number] [place] [address] 12767- 2908 Apr, Pain in right knee M25.561 and Pain in left knee M25.562 [place] [address] [place] [id number] [place] [address] 54155- 6719 Apr, [place] [address] [place] [id number] [place] [address] 04339- 4588 Apr, [place] [address] [place] [id number] [place] [address] 43949- 9863 Apr, [place] [id number] [place] [address] 34234- 9015 Mar, Generalized anxiety disorder F41.1 and Major depressive disorder, recurrent episode with anxious distress F33.9 [facility] [place] [address] [place] [id number] [place] [address] 68469- 1695 Mar, Generalized anxiety disorder F41.1 and Major depressive disorder, recurrent episode with anxious distress F33.9 [place] [address] [place] [id number] [place] [address] 06790- 4389 Mar, [facility] [place] [address] 90973- 3866 Mar, [place] [address] [place] [id number] [place] [address] 50302- 4471 Mar, [place] [address] 68376- 3627 Mar, Asthma J45.909 and Fibromyalgia M79.7 [place] [id number] [place] [address] 78175- 8708 Mar, Chronic kidney disease, stage 4 (severe) N18.4 ; Vitamin D deficiency E55.9 and Essential (primary) hypertension I10 [place] [address] [place] [id number] [place] [address] 18907- 5966 Feb, [place] [address] [place] [id number] [place] [address] 68876- 4189 Feb, Dysuria R30.0 ; Mixed stress and urge urinary incontinence N39.46 ; Fibromyalgia M79.7 and Chronic kidney disease, stage IV (severe) N18.4 [place] [address] [place] [id number] [place] [address] 96968- 3190 Feb, Chronic kidney disease, stage 4 (severe) N18.4 [place] [address] [place] [id number] [place] [address] 00280- 8756 Feb, Chronic kidney disease, stage 4 (severe) N18.4 [place] [address] [place] [id number] [place] [address] 73185- 1372 Feb, [place] [address] [place] [address] [place] [address]- 7866 Feb, Vitamin D deficiency, unspecified E55.9 [place] [address] 58639- 9159 Jan, [facility] [place] [address] [place] [id number] [place] [address] 41344- 2358 Jan, [place] [address] 47250- 5932 Dec, [place] [address] 69360- 2244 Dec, Chronic kidney disease, stage 4 (severe) N18.4 [place] [address] 56571- 0952 Dec, Dysthymic disorder F34.1 and Generalized anxiety disorder F41.1 [place] [address] 20625- 3856 Dec, [place] [address] [place] [id number] [place] [address] 73679- 7793 Dec, [place] [address] [place] [id number] [place] [address] 96281- 2827 Dec, Dysthymic disorder F34.1 and Generalized anxiety disorder F41.1 [place] [address] [place] [id number] [place] [address] 65749- 3759 Dec, Dysuria R30.0 ; Chronic kidney disease, stage 4 (severe) N18.4 ; Hypertension I10 ; Dyspepsia R10.13 ; Yeast dermatitis B37.2 ; Palpitations R00.2 ; Hypothyroid E03.9 ; Functional diarrhea K59.1 and Other seasonal allergic rhinitis J30.2 [facility] [address] [place] [id number] [place] [phone] Dec, [facility] [id number] [place] [phone] Nov, Dysuria R30.0 and Stress incontinence N39.3 [place] [id number] [place] [id number] Nov, [place] [id number] [place] [address] Nov, [place] [id number] [place] [id number] Nov, Osteoarthritis of knees, bilateral M17.0 [place] [id number] [place] [address]- [address] Nov, Dysthymic disorder F34.1 and Generalized anxiety disorder F41.1 [place] [address] [address] Nov, [place] [address] [address] Nov, [place] [address] [phone] Nov, Urgency of urination R39.15 [place] [address] [phone] Nov, [place] [id number] [place] [phone] Nov, Chronic kidney disease, stage 4 (severe) N18.4 [place] [id number] [place] [address]- [address] Oct, Hypertension I10 ; Coronary artery disease involving [place] coronary artery of [place] heart, angina presence unspecified I25.10 ; Palpitations R00.2 ; Hypothyroid E03.9 ; Right foot pain M79.671 ; Functional diarrhea K59.1 and Other seasonal allergic rhinitis J30.2 [place] [id number] [place] [address]- 12[address] Oct, Dysthymic disorder F34.1 and Generalized anxiety disorder F41.1 [place] [address] [place], [place] [address]- 9336 Sep, [facility], [place] [id number] [place] [address] 09534- 4188 Sep, [facility], [place] [id number] [place] [address] 77868- 7085 Sep, [facility], [place] [id number] [place] [address] 88690- 4931 Sep, [facility], [place] [id number] [place] [address] 62238- 0986 Sep, [place] [address] [id number] [place] [address] 46491- 6266 Sep, Dysthymic disorder F34.1 and Generalized anxiety disorder F41.1 [place] [id number] [place] [address] 87727- 3997 16 Sep, 2015 Asthma with acute exacerbation in adult J45.901 ; Dysuria R30.0 ; Chronic kidney disease, stage 4 (severe) N18.4 and History of anemia Z86.2 [place] [id number] [place] [address] 78925- 7127 Sep, Generalized anxiety disorder F41.1 and Dysthymic disorder F34.1 [place] [id number] [place] [address] 62470- 8874 August, Screening breast examination Z12.39 and Acute recurrent maxillary sinusitis J01.01 [place] [id number] [place] [address] 04968- 8817 August, Osteoarthritis of knees, bilateral M17.0 [place] [id number] [place] [address] 20529- 9570 August, Chronic kidney disease, stage 4 (severe) N18.4 ; Acute non- recurrent maxillary sinusitis J01.00 ; Urinary problem R39.89 ; Bowel habit changes R19.4 ; Functional diarrhea K59.1 and History of colon polyps Z86.010 [place] [address], [place] [address] 1088 29 Jul, 2015 Dysthymic disorder F34.1 and Generalized anxiety disorder F41.1 [facility], [place] [id number] [place] [address] 84141- 9940 Jul, [facility], [place] [id number] [place] [address] 95747- 1109 Jul, Dysthymic disorder F34.1 ; Generalized anxiety disorder F41.1 and 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 [facility], [place] [id number] [place] [address] 11816- 6003 Jul, [facility], [place] [id number] [place] [address] 38878- 0964 16 Jun, 2015 [facility], [place] [id number] [place] [address] 44820- 5550 Jun, [facility], [place] [id number] [place] [address] 89952- 5620 May, [facility], [place] [id number] [place] [address] 67849- 9641 May, Dysthymic disorder F34.1 and Generalized anxiety disorder F41.1 [facility], [place] [id number] [place] [address] 27705- 7731 Apr, Kidney disease N28.9 [facility], [place] [id number] [place] [address] 73339- 6421 Apr, Generalized anxiety disorder F41.1 and Dysthymic disorder F34.1 [facility], [place] [address] [place] [address] 61490- 5208 Apr, Chronic kidney disease, stage 4 (severe) N18.4 [facility], [place] [address] [address]- 1388 Apr, Generalized anxiety disorder F41.1 ; Major depression, recurrent F33.9 and Sleep disturbance G47.9 [place] [id number] [place] [address] 34913- 6366 Mar, Generalized anxiety disorder F41.1 and Dysthymic disorder F34.1 [facility], [place] [id number] [place] [address] 36218- 2910 Mar, Generalized anxiety disorder F41.1 ; Dysthymic disorder F34.1 and Insomnia G47.00 [facility], [place] [id number] [place] [address] 79251- 2439 Mar, [facility], [place] [address] [id number] [place] [address] 39430- 3393 Mar, [facility], [place] [address] [id number] [place] [address] 24471- 0179 Mar, Osteoarthritis of knees, bilateral M17.0 [place] [id number] [place] [address] 66617- 3815 Mar, Hypertension I10 ; Hypothyroid E03.9 ; Dysthymic disorder F34.1 ; Chronic kidney disease, stage 4 (severe) N18.4 and Nausea & vomiting R11.2 [place] [id number] [place] [address] 57349- 3428 Mar, Generalized anxiety disorder F41.1 ; Dysthymic disorder F34.1 and Insomnia G47.00 [place] [id number] [place] [address] 29258- 5162 Mar, Dehydration E86.0 ; Chronic kidney disease, stage 4 (severe ) N18.4 and Nausea & vomiting R11.2 [facility] [address] [place] [address] 16801 -1084 Mar, Gastroenteritis K52.9 [facility], [place] [id number] [place] [address] 43558- 2271 Mar, [facility], [place] [id number] [place] [address] 45430- 9355 Mar, [facility], [place] [id number] [place] [address] 98423- 2517 Feb, Dysthymic disorder F34.1 and Generalized anxiety disorder F41.[address] 91867- 2880 Jan, UTI (urinary tract infection) N39.0 ; Asthma J45.909 ; Coronary artery disease involving [place] coronary artery of [place] heart, angina presence unspecified I25.10 ; Hypertension I10 ; Hypothyroid E03.9 ; Vitamin D deficiency E55.9 ; Insomnia G47.00 ; Palpitations R00.2 ; Depressed F32.9 ; Restless leg G25.81 and Anxiety F41.[address] 94182- 8080 Jan, Dysthymic disorder F34.1 and Generalized anxiety disorder F41.[address] 55705- 7058 Jan, [address] 31579- 1913 Dec, [address] 76711- 0100 Dec, Alkalosis 276.3 ; Chronic kidney disease, Stage IV (severe) 585.4 ; Hyperpotassemia 276.7 ; Secondary hyperparathyroidism, renal 588.81 ; Proteinuria 791.0 ; Unspecified vitamin D deficiency 268.9 ; Anemia in chronic kidney disease 285.21 ; Other and unspecified hyperlipidemia 272.4 ; Hypertension, essential, benign 401.1 and Chronic kidney disease (CKD), stage III (moderate) 585.[address] 31155- 9256 Dec, [address] 18824- 0393 Dec, Depressive disorder, not elsewhere classified 311 and Generalized anxiety disorder 300.[address] 50135- 5208 Dec, [facility], [place] [id number] [place] [address] 16185- 2986 Dec, [facility], [place] [address] [id number] [place] [address] 44670- 2131 Nov, Depressive disorder, not elsewhere classified 311 and Generalized anxiety disorder 300.02 [facility], [place] [address] [id number] [place] [address] 46061- 8037 Nov, Arthritis of both knees 716.96 [place] [address] [place] [id number] [place] [address] 22303- 9641 Nov, PAF (paroxysmal atrial fibrillation) 427.31 ; CAD (coronary artery disease) 414.00 ; Chest pain 786.50 and Chronic kidney disease (CKD) stage G4/A1, severely decreased glomerular filtration rate (GFR) between 15-29 mL/min/1.73 square meter and albuminuria creatinine ratio less than 30 mg/g 585.4 [place] [address] [id number] [place] [address] 80101- 0256 Oct, Coronary atherosclerosis of unspecified type of vessel, [place] or graft 414.00 ; Chronic kidney disease, Stage IV (severe) 585.4 ; Hypertension 401.9 and Edema 782.3 [place] [address] [place] [id number] [place] [address] 59444- 5071 Oct, Depressive disorder, not elsewhere classified 311 and Generalized anxiety disorder 300.02 [facility], [place] [id number] [place] [address] 39052- 0640 Oct, Depressive disorder, not elsewhere classified 311 and Generalized anxiety disorder 300.02 [facility], [place] [id number] [place] [address] 61795- 1575 Oct, [facility], [place] [address] [id number] [place] [address] 20415- 5431 Oct, [facility], [place] [address] [place] [address] 36074- 8028 Sep, [facility], [place] [id number] [place] [address] 58813- 0314 Sep, Chronic kidney disease, Stage IV (severe) 585.4 [facility], [place] [id number] [place] [address] 76311- 6295 Sep, [facility], [place] [id number] [place] [address] 60067- 9268 Sep, Coronary atherosclerosis of unspecified type of vessel, [place] or graft 414.00 ; Hypertension 401.9 ; Edema 782.3 and Hypothyroidism 244.9 [facility], [place] [address] [id number] [place] [address] 44876- 9536 Sep, Coronary atherosclerosis of unspecified type of vessel, [place] or graft 414.00 ; Hypertension 401.9 ; Fibromyalgia 729.1 ; Edema 782.3 ; Hypothyroidism 244.9 and Anemia 285.9 [place] [id number] [place] [address] 47925- 3229 Sep, Anxiety disorder, unspecified 300.00 and Depressive disorder , not elsewhere classified 311 [facility], [place] [id number] [place] [address] 70134- 6435 Sep, [facility], [place] [id number] [place] [address] 08339- 7272 August, Generalized anxiety disorder 300.02 [facility], [place] [id number] [place] [address] 21702- 9559 August, Closed fracture of lateral malleolus 824.2 [facility], [place] [address] [id number] [place] [address] 14852- 3061 Jul, [facility], [place] [id number] [place] [address] 85201- 9293 Jul, [facility], [place] [id number] [place] [address] 26943- 8442 Jun, [facility], [place] [address] [id number] [place] [address] 72359- 1442 Jun, [facility] [place] [facility] [address] [id number] [place] [address]- 4074 13 Jun, 2014 [facility] [place] [facility] [address] [id number] [place] [address]- 8426 13 Jun, 2014 [facility] [place] [facility] [address] [id number] [place] [address]- 8218 Jun, 2014 [facility] [place] [facility] [address] [id number] [place] [address]- 9372 02 Jun, 2014 [facility] [place] [facility] [address] [id number] [place] [address]- 0678 May, 2014 [facility] [place] [facility] [address] [id number] [place] [address]- 4763 19 May, 2014 [facility] [place] [facility] [address] [facility] [id number] [place] [address]- 4098 18 May, 2014 [facility] [place] [facility] [address] [id number] [place] [address]- 7375 18 May, 2014 [facility] [place] [facility] [address] [id number] [place] [address]- 7956 16 May, 2014 [facility] [place] [facility] [address] [facility] [id number] [place] [address]- 7575 16 May, 2014 [facility] [place] [facility] [address] [facility] [id number] [place] [address]- 5415 13 May, 2014 [facility] [place] [facility] [address] [id number] [place] [address]- 1561 13 May, 2014 [facility] [place] [facility] [address] [id number] [place] [address]- 2540 10 May, 2014 [facility] [place] [facility] [address] [id number] [place] [address]- 8949 10 May, 2014 [facility] [place] [facility] [address] [id number] [place] [address]- 3363 Apr, [facility] [place] [facility] [address] [id number] [place] [address]- 0731 Apr, [facility] [place] [facility] [address] [id number] [place] [address]- 2367 Mar, [facility] [place] [facility] [address] [id number] [place] [address]- 0283 Mar, [facility] [place] [facility] [address] [id number] [place] [address]- 7501 Mar, [facility] [place] [facility] [address] [id number] [place] [address]- 3182 Mar, [facility] [place] [facility] [address] [id number] [place] [address]- 1680 Mar, [facility] [place] [facility] [address] [id number] [place] [address]- 3674 Mar, [facility] [place] [facility] [address] [id number] [place] [address]- 2295 Mar, [facility] [place] [facility] [address] [id number] [place] [address]- 4136 Feb, [facility] [place] [facility] [address] [id number] [place] [address]- 5659 Feb, [facility] [place] [facility] [address] [id number] [place] [address]- 5341 Feb, [facility] [place] [facility] [address] [id number] [place] [address]- 8840 Jan, [facility] [place] [facility] [address] [id number], [place] [address]- 7805 Jan, [facility] [place] [facility] [address] [id number] [place] [address]- 9534 Jan, [facility] [place] [facility] [address] [id number] [place] [address]- 2378 Jan, [facility] [place] [facility] [address] [id number], [place] [address]- 4150 Jan, [facility] [place] [facility] [address] [id number] [place] [address]- 1519 Jan, [facility] [place] [facility] [address] [id number] [place] [address]- 7415 Jan, [facility] [place] [facility] [address] [id number] [place] [address]- 5012 Jan, [facility] [place] [facility] [address] [id number] [place] [address]- 2842 Jan, [facility] [place] [facility] [address] [id number] [place] [address]- 4523 Jan, [facility] [place] [facility] [address] [id number] [place] [address]- 3874 Nov, [facility] [place] [facility] [address] [id number] [place] [address]- 3783 Nov, [facility] [place] [facility] [address] [id number] [place] [address]- 7516 Nov, [facility] [place] [facility] [address] [id number] [place] [address]- 6028 Oct, [facility] [place] [facility] [address] [id number] [place] [address]- 0012 Oct, [facility] [place] [facility] [address] [id number] [place] [address]- 8310 Oct, [facility] [place] [facility] [address] [id number] [place] [address]- 5265 Oct, [facility] [place] [facility] [address] [id number] [place] [address]- 3028 Oct, [facility] [place] [facility] [address] [id number] [place] [address]- 0322 Oct, [facility] [place] [facility] [address] [id number] [place] [address]- 3473 Oct, [facility] [place] [facility] [address] [id number] [place] [address]- 2902 Oct, [facility] [place] [facility] [address] [id number] [place] [address]- 5270 Oct, [facility] [place] [facility] [address] [id number] [place] [address]- 2822 Sep, [facility] [place] [facility] [address] [id number] [place] [address]- 3191 Sep, [facility] [place] [facility] [address] [id number] [place] [address]- 5846 Sep, [facility] [place] [facility] [address] [id number] [place] [address]- 1937 Sep, [facility] [place] [facility] [address] [id number] [place] [address]- 3386 Sep, [facility] [place] [facility] [address] [id number] [place] [address]- 6026 Sep, [facility] [place] [facility] [address] [id number] [place] [address]- 5566 Sep, [facility] [place] [facility] [address] [id number] [place] [address]- 0528 Sep, [facility] [place] [facility] [address] [id number] [place] [address]- 8740 Sep, [facility] [place] [facility] [address] [id number], [place] [address]- 2364 August, [facility] [place] [facility] [address] [id number], [place] [address]- 9080 August, [facility] [place] [facility] [address] [id number] [place] [address]- 6713 August, [facility] [place] [facility] [address] [id number] [place] [address]- 6451 August, [facility] [place] [facility] [address] [id number] [place] [address]- 3058 August, [facility] [place] [facility] [address] [id number] [place] [address]- 2271 August, [facility] [place] [facility] [address] [id number] [place] [address]- 9258 Jul, [facility] [place] [facility] [address] [id number] [place] [address]- 0606 Jul, [facility] [place] [facility] [address] [id number] [place] [address]- 1847 Jul, [facility] [place] [facility] [address] [id number] [place] [address]- 4076 Jul, [facility] [place] [facility] [address] [id number] [place] [address]- 9893 Jul, [facility] [place] [facility] [address] [id number] [place] [address]- 3760 Jul, [facility] [place] [facility] [address] [id number] [place] [address]- 1492 Jun, [facility] [place] [facility] [address] [id number] [place] [address]- 6264 Jun, [facility] [place] [facility] [address] [id number] [place] [address]- 9741 May, [facility] [place] [facility] [address] [id number] [place] [address]- 9055 May, [facility] [place] [facility] [address] [id number] [place] [address]- 9108 May, [facility] [place] [facility] [address] [id number] [place] [address]- 1882 May, [facility] [place] [facility] [address] [id number] [place] [address]- 6413 Apr, [facility] [place] [facility] [address] [id number] [place] [address]- 2934 Apr, [facility] [place] [facility] [address] [id number] [place] [address]- 2429 Mar, [facility] [place] [facility] [address] [id number] [place] [address]- 3527 18 Mar, 2013 [facility] [place] [facility] [address] [id number] [place] [address]- 6897 17 Mar, 2013 [facility] [place] [facility] [address] [id number] [place] 6590 17 Mar, 2013 [facility] [place] [facility] [address] [id number] [place] [address]- 4413 05 Mar, 2013 [facility] [place] [facility] [address] [id number] [place] [address]- 2643 05 Mar, 2013 [facility] [place] [facility] [address] [id number] [place] [address]- 9438 Feb, [facility] [place] [facility] [address] [id number] [place] [address]- 4810 Feb, [facility] [place] [facility] [address] [id number] [place] [address]- 6760 14 Feb, 2013 [facility] [place] [facility] [address] [id number] [place] [address]- 4124 Feb, [facility] [place] [facility] [address] [id number], [place] [address]- 3429 Feb, [facility] [place] [facility] [address] [id number], [place] [address]- 7827 Feb, [facility] [place] [facility] [address] [id number], [place] [address]- 0699 24 Jan, 2013 [facility] [place] [facility] [address] [id number] [place] [address]- 3345 24 Jan, 2013 [facility] [place] [facility] [address] [id number] [place] [address]- 6766 10 Jan, 2013 [facility] [place] [facility] [address] [id number][place] 3722 10 Jan, 2013 [facility] [place] [facility] [address] [id number] [place] [address]- 0487 Jan, [facility] [address] [id number] [place] [address]- 0564 Jan, [facility] [place] [facility] [address] [id number] [place] [address]- 5384 Dec, [facility] [place] [facility] [address] [id number] [place] [address]- 10[address] Dec, [facility] [place] [facility] [address] [id number] [place] [address] Nov, [facility] [place] [facility] [address] [id number] [place] [address] Nov, [facility] [place] [facility] [address] [id number] [place] [address] Oct, [facility] [address] [id number] [place] [address] Oct, [facility] [place] [facility] [address] [id number] [place] [address] Oct, [facility] [place] [facility] [address] [id number] [place] [address] Oct, [facility] [place] [facility] [address] [id number] [place] [address] Oct, [facility] [place] [facility] [address] [id number] [place] [address] Oct, [facility] [place] [facility] [address] [id number] [place] [address] Sep, [facility] [place] [facility] [address] [id number] [place] [address] Sep, [facility] [place] [facility] [address] [id number] [place] [address] Sep, [facility] [place] [facility] [address] [id number] [place] [address] Sep, [facility] [place] [facility] [address] [id number] [place] [address] August, [facility] [address] [id number] [place] [address] August, [facility] [address] [id number] [place] [address] August, [facility] [address] [id number] [place] [address] August, [facility] [address] [id number] [place] [address] August, [facility] [address] [id number] [place] [address] Jul, [facility] [address] [id number] [place] [address] Jul, [facility] [address] [id number] [place] [address] Jul, [facility] [address] [id number] [place] [address] Jul, [facility] [address] [id number] [place] [address] Jul, [facility] [address] [id number] [place] [address] Jul, [facility] [address] [id number] [place] [address] Jul, [facility] [address] [id number] [place] [address] Jul, [facility] [address] [id number] [place] [address] Jul, [facility] [address] [id number] [place] [address] Jul, [facility] [address] [facility] [id number] [id number] Jun, [facility] [address] [id number] [place] [address] Jun, [facility] [address] [id number] [place] [address] Jun, [facility] [address] [id number] [place] [address] Jun, [facility] [address] [id number] [place] [address] Jun, [facility] [address] [id number] [place] [address] May, [facility] [address] [id number] [place] [address] May, [facility] [address] [id number] [place] [address] May, [facility] [address] [id number] [place] [address] Apr, [facility] [address] [id number] [place] [address] Apr, [facility] [address] [id number] [place] [address] Apr, [facility] [address] [id number] [place] [address] Apr, [facility] [place] [facility] [address] [id number], [place] [address] Apr, [facility] [place] [facility] [address] [id number] [place] [address] Apr, [facility] [address] [id number] [place] [address] Mar, [facility] [place] [facility] [address] [id number] [place] [address] Mar, [facility] [address] [id number] [place] [address] 18 Mar, 2012 [facility] [place] [facility] [address] [id number] [place] [address] Mar, [facility] [place] [facility] [address] [id number] [place] [address] Feb, [facility] [place] [facility] [address] [id number] [place] [address] 164[address] Feb, [facility] [place] [facility] [address] [id number] [place] [address] Feb, [facility] [place] [facility] [address] [id number] [place] [address] 47[address] Feb, [facility] [place] [facility] [address] [id number] [place] [address] 8720 Feb, [facility] [place] [facility] [address] [id number] [place] [address] 53[address] Feb, [facility] [place] [facility] [address] [id number] [place] [address] 34[address] Feb, [facility] [place] [facility] [address] [id number] [place] [address] 9794 Feb, [facility] [place] [facility] [address] [facility] [id number] [place] [address] 6165 Feb, [facility] [place] [facility] [address] [id number] [place] [address] 6286 Feb, [facility] [place] [facility] [address] [id number], [place] [address] Feb, [facility] [place] [facility] [address] [id number] [place] [address] 74[address] Feb, [facility] [place] [facility] [address] [id number] [place] [address]- 0101 Feb, [facility] [place] [facility] [address] [id number], [place] [address]- [address] Feb, [facility] [place] [facility] [address] [id number] [place] [address]- 3485 Feb, [facility] [place] [facility] [address] [id number] [place] [address]- 6346 Feb, [facility] [place] [facility] [address] [id number] [place] [address]- 7460 Jan, [facility] [place] [facility] [address] [id number] [place] [address]- 3695 Jan, [facility] [place] [facility] [address] [id number] [place] [address]- 7856 Jan, [facility] [place] [facility] [address] [id number] [place] [address]- 2094 Jan, [facility] [place] [facility] [address] [id number] [place] [address]- 5708 Jan, [facility] [place] [facility] [address] [id number] [place] [address]- 3536 Jan, [facility] [place] [facility] [address] [id number] [place] [address]- 4584 Jan, [facility] [place] [facility] [address] [id number] [place] [address]- 4605 Jan, [facility] [place] [facility] [address] [id number] [place] [address]- 3134 Jan, [facility] [place] [facility] [address] [id number], [place] [address] 2607 Jan, [facility] [place] [facility] [address] [id number] [place] [address] 15 Jan, 2012 [facility] [place] [facility] [address] [id number] [place] [address] 1946 Jan, [facility] [place] [facility] [address] [id number] [place] [address]- 7325 Dec, [facility] [place] [facility] [address] [id number], [place] [address] 92[address] 26 Sep, 2011 [facility] [place] [facility] [address] [id number] [place] [address]- 9836 24 Sep, 2011 [facility] [place] [facility] [address] [id number] [place] [address]- 4656 23 Sep, 2011 [facility] [place] [facility] [address] [id number] [place] [address] 2546 22 Sep, 2011 [facility] [place] [facility] [address] [id number] [place] [address] 2546 21 Sep, 2011 [facility] [place] [facility] [address] [id number] [place] [address]- 2446 20 Sep, 2011 [facility] [place] [facility] [address] [id number] [place] [address]- 9668 20 Sep, 2011 [facility] [place] [facility] [address] [id number] [place] [address]- 9104 07 Sep, 2011 [facility] [place] [facility] [address] [id number] [place] [address]- 5559 06 Sep, 2011 [facility] [place] [facility] [address] [id number] [place] [address]- 8839 06 Sep, 2011 [facility] [place] [facility] [address] [id number] [place] [address]- 5700 05 Dec, 2011 [facility] [place] [facility] [address] [id number] [place] [address]- 8523 23 Nov, 2011 [facility] [place] [facility] [address] [id number] [place] [address]- 7250 17 Nov, 2011 [facility] [place] [facility] [address] [id number] [place] [address]- 0695 13 Nov, 2011 [facility] [place] [facility] [address] [id number] [place] [address]- 6068 10 Nov, 2011 [facility] [place] [facility] [address] [id number] [place] [address]- 9071 08 Nov, 2011 [facility] [place] [facility] [address] [id number] [place] [address]- 2526 Nov, [facility] [address] [id number] [place] [address] 0806 Nov, [facility] [address] [id number] [place] [address] 5226 Nov, [facility] [address] [id number] [place] [address]- 9112 Oct, [facility] [address] [id number] [place] [address] 3813 Oct, [facility] [address] [id number] [place] [address] 1932 Oct, [facility] [address] [id number] [place] [address] 1929 Oct, [facility] [address] [id number] [place] [address] 7799 Oct, [facility] [address] [id number] [place] [address]- 0823 Oct, [facility] [address] [id number] [place] [address]- 4853 Oct, [facility] [address] [id number] [place] [address]- 0713 Sep, [facility] [place] [facility] [address] [id number] [place] [address]- 0706 Sep, [facility] [address] [id number] [place] [address] 555[address] August, [facility] [place] [facility] [address] [id number] [place] [address]- 3726 August, [facility] [place] [facility] [address] [id number] [place] [address] 3306 August, [facility] [address] [id number] [place] [address]- 8796 August, [facility] [address] [id number] [place] [address]- 1598 Jul, [facility] [place] [facility] [address] [id number] [place] [address]- 0366 Jul, [facility] [place] [facility] [address] [id number] [place] [address]- 9257 Jul, [facility] [place] [facility] [address] [id number] [place] [address]- 2877 Jul, [facility] [place] [facility] [address] [id number] [place] [address]- 0416 Jul, [facility] [place] [facility] [address] [id number] [place] [address]- 5590 Jul, [facility] [place] [facility] [address] [id number] [place] [address]- 2006 Jul, [facility] [place] [facility] [address] [id number] [place] [address]- 6541 Jul, [facility] [place] [facility] [address] [id number] [place] [address]- 3963 Jul, [facility] [place] [facility] [address] [id number] [place] [address]- 9347 Jun, [facility] [place] [facility] [address] [id number] [place] [address]- 5880 19 Jun, 2011 [facility] [place] [facility] [address] [id number], [place] [address]- 9125 15 Jun, 2011 [facility] [place] [facility] [address] [id number] [place] [address]- 1744 14 Jun, 2011 [facility] [place] [facility] [address] [id number] [place] [address]- 0714 12 Jun, 2011 [facility] [place] [facility] [address] [id number], [place] [address]- 5879 09 Jun, 2011 [facility] [place] [facility] [address] [id number], [place] [address]- 7246 Jun, [facility] [address] [id number] [place] [address]- 0216 May, [facility] [place] [facility] [address] [id number] [place] [address]- 8746 May, [facility] [place] [facility] [address] [id number] [place] [address]- 3026 May, [facility] [place] [facility] [address] [id number] [place] [address]- 5926 May, [facility] [place] [facility] [address] [id number] [place] [address]- 3456 May, [facility] [place] [facility] [address] [id number] [place] [address]- 3076 Apr, [facility] [address] [id number] [place] [address]- 2881 Apr, [facility] [address] [id number] [place] [address]- 0221 Apr, [facility] [place] [facility] [address] [id number] [place] [address]- 9400 Apr, [facility] [address] [id number] [place] [address]- 7539 Apr, [facility] [address] [id number] [place] [address]- 7186 30 Mar, 2011 [facility] [place] [facility] [address] [id number] [place] [address] 2546 Mar, [facility] [place] [facility] [address] [id number] [place] [address] 2546 Mar, [facility] [place] [facility] [address] [id number] [place] [address]- 2546 Mar, [facility] [place] [facility] [address] [id number] [place] [address] 2548 Mar, [facility] [place] [facility] [address] [id number] [place] [address]- 3540 Mar, [facility] [place] [facility] [address] [id number] [place] [address]- 9212 Mar, [facility] [place] [facility] [address] [id number] [place] [address]- 1983 Feb, [facility] [place] [facility] [address] [id number] [place] [address]- 1457 Feb, [facility] [place] [facility] [address] [id number] [place] [address]- 9362 Feb, [facility] [place] [facility] [address] [id number] [place] [address]- 4330 Feb, [facility] [place] [facility] [address] [id number] [place] [address]- 0989 Jan, [facility] [place] [facility] [address] [id number] [place] [address]- 0776 Jan, [facility] [place] [facility] [address] [id number] [place] [address]- 1063 Jan, [facility] [place] [facility] [address] [id number] [place] [address]- 0118 Jan, [facility] [place] [facility] [address] [id number] [place] [address]- 5106 Nov, [facility] [place] [facility] [address] [id number] [place] [address]- 4933 Mar, [facility] [place] [facility] [address] [id number] [place] [address]- 2995 Mar, [facility] [place] [facility] [address] [id number] [place] [address]- 6098 Mar, [facility] [place] [facility] [address] [id number] [place] [address]- 0632 Mar, [facility] [place] [facility] [address] [id number], [place] [address] 2546 Mar, [facility] [place] [address] [facility] [id number] [place] [address]- 2546 Mar, [facility] [place] [address] [facility] [id number], [place] [address]- 2546 Feb, [facility] [place] [address] [facility] [id number], [place] [address]- 2546 Feb, [facility] [place] [address] [facility] [id number], [place] [address]- 2546 Jan, [facility] [place] [address] [facility] [id number], [place] [address]- 6305 Jan, [facility] [place] [address] [facility] [id number], [place] [address]- 1586 Jan, IMMUNIZATIONS No Known Immunizations SOCIAL HISTORY Never Assessed REASON FOR VISIT Blood pressure check-[facility] PLAN OF CARE VITAL SIGNS Height 63 in 2017-08-07 Blood pressure systolic 112 mmHg 2017-08-07 Blood pressure diastolic 64 mmHg 2017-08-07 MEDICATIONS Unknown Medications RESULTS No Results PROCEDURES [...] & 2007 Surgical History Bladder surgery [facility] 03/2016 Surgical History 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
--- OUTSIDE RECORDS SUMMARY | 2018-05-29 08:49 | XMS REPORT ---
Author Author ISABEL MAE [facility] Address [address] [place] [address] Care Team Providers Care Radiology Director Name Role Phone ISABEL MAE Unavailable PROBLEMS Type Condition ICD9-CM Code HCC54-QE Code Onset Dates Condition Status SNOMED Code Problem Long-term use of high-risk medication Z79.899 Active 693926647 Problem Abnormal chest CT R93.8 Active 247620562 Problem Generalized anxiety disorder F41.1 Active 58791794 Problem Low back pain M54.5 Active 061348365 Problem Dysthymic disorder F34.1 Active 38514357 Problem Depressed F32.9 Active 58132826 Problem Coronary artery disease involving em[place]ak coronary artery of emmonak heart, angina presence unspecified I25.10 Active 6223238320164 Problem Hypothyroid E03.9 Active 29374090 Problem Insomnia G47.00 Active 278341872 Problem Vitamin D deficiency E55.9 Active 00119008 Problem Asthma J45.909 Active 013056299 Problem Chronic kidney disease, unspecified N18.9 Active 062576145 Problem Palpitations R00.2 Active 00331226 Problem Anemia in chronic kidney disease D63.1 Active 245364166021246 Problem Primary osteoarthritis of left knee M17.12 Active 321562116 Problem Bipolar disorder, current episode manic without psychotic features F31.10 Active 768315490 Problem Restless leg syndrome G25.81 Active 61999152 Problem Seasonal allergic rhinitis due to pollen J30.1 Active 70341674 Problem Functional diarrhea K59.1 Active 60998967 Problem Chronic kidney disease, stage 4 (severe) N18.4 Active 258026263 Problem Restless leg G25.81 Active 24475524 Problem Mood disorder F39 Active 95971246 Problem Degenerative tear of medial meniscus of left knee M23.204 Active 079719631 Problem Body mass index (BMI) of 40.0-44.9 in adult Z68.41 Active 875626243 Problem Stage 3 chronic kidney disease N18.3 Active 962807151 Problem Asthma with acute exacerbation in adult J45.901 Active 042266012 Problem Other seasonal allergic rhinitis J30.2 Active 047437475 Problem History of colon polyps Z86.010 Active 138084294 Problem History of anemia Z86.2 Active 791672858 Problem Fibromyalgia M79.7 Active 231626472 Problem Essential (primary) hypertension I10 Active 55105232 Problem Hypokalemia E87.6 Active 52318646 Problem Mixed stress and urge urinary incontinence N39.46 Active 839166938 ALLERGIES No Information ENCOUNTERS Encounter Location Date Diagnosis [place] [address] [address] Nov, [place] [address] [address] Nov, Complicated UTI (urinary tract infection) N39.0 [place] [address] 19848- 2935 Oct, [place] [address] [place] [id number] [place] [address] 00268- 5042 Oct, Generalized anxiety disorder F41.1 and Major depressive disorder, recurrent episode with anxious distress F33.9 [place] [address] [place] [id number] [place] [address] 32682- 6215 Oct, [place] [address] [place] [id number] [place] [address] 95048- 7607 Oct, Fibromyalgia M79.7 [place] [address] 9[address]30- [address]284 Sep, Restless leg syndrome G25.81 and Restless leg G25.81 [place] [address] 36594- 8677 Sep, [place] [address] [place] [id number] [place] [address] 25711- 7872 Sep, Seasonal allergic rhinitis due to pollen J30.1 ; Screening for breast cancer Z12.31 ; Chest pain at rest R07.9 ; Restless leg syndrome G25.81 ; Essential (primary) hypertension I10 and Depressed F32.9 [facility] [address] 26[address]- [address] August, Fibromyalgia M79.7 [facility] [address] [place] [id number] [place] [address] 79442- 8360 August, [facility] [address] 46401- 0601 August, [facility] [address] 78592- 2393 August, Abnormal chest CT R93.8 [place] [address] 22877- 2627 August, Generalized anxiety disorder F41.1 and Major depressive disorder, recurrent episode with anxious distress F33.9 [place] [address] 67109- [address]354 August, Ab[address] chest [address] R93.8 [facility] [address] [place] [id number] [place] [address] 21379- 6069 Jul, [facility] [address] 38391- 0689 Jul, Chronic kidney disease, stage 4 (severe) N18.4 [place] [address] [place] [id number] [place] [address] 76535- 8143 Jul, [facility] [address] [place] [id number] [place] [address] 94349- 1977 Jul, Restless leg G25.81 ; Mixed stress and urge urinary incontinence N39.46 and Fibromyalgia M79.7 [facility] [address] [place] [id number] [place] [address] 53375- 6587 Jul, Chronic kidney disease, stage 4 (severe) N18.4 [facility] [address] [place] [id number] [place] [address] 74220- 7011 Jun, Orthostatic hypotension I95.1 ; Chronic kidney disease, stage 4 (severe) N18.4 ; Chest wall discomfort R07.89 and Body mass index (BMI) of 40.0-44.9 in adult Z68.41 [facility] [address] [place] [id number] [place] [address] 57611- 7392 Jun, [facility] [address] [place] [id number] [place] [address] 42672- 2247 Jun, Orthostatic hypotension I95.1 [facility] [address] [place] [id number] [place] [address] 01180- 0465 Jun, [facility] [address] 38245 -3297 Jun, Orthostatic hypotension I95.1 ; Dysuria R30.0 and Acute cystitis without hematuria N30.00 [place] [address] [place] [id number] [place] [address] 80843- 4527 Jun, [facility] [address] [place] [id number] [place] [address] 48204- 7927 Jun, Chronic kidney disease, stage 4 (severe) N18.4 [place] [address] [place] [id number] [place] [address] 04324- 1361 Jun, Fibromyalgia M79.7 [facility] [address] [place] [id number] [place] [address] 82036- 6016 Jun, [facility] [address] [place] [id number] [place] [address] 20528- 8279 Jun, [facility] [address] [place] [id number] [place] [address] 33624- [address] May, [address] R93.8 and Stage 3 chronic kidney disease N18.3 [facility] [address] [place] [id number] [place] [address] 05000- 3435 May, Chronic kidney disease, stage 4 (severe) N18.4 [facility] [address] [place] [id number] [place] [address] 58686- 4112 May, Chronic kidney disease, stage 4 (severe) N18.4 [facility] [address] [place] [id number] [place] [address] 71962- [address] May, [address] R93.8 [facility] [address] [place] [id number] [place] [address] 53870- 9544 May, [facility] [address] [place] [id number] [place] [address] 72122- 9644 May, [facility] [address] [place] [id number] [place] [address] 22114- 8693 May, Generalized anxiety disorder F41.1 and Major depressive disorder, recurrent episode with anxious distress F33.9 [place] [address] [place] [id number] [place] [address] 16920- 2354 May, Mood disorder F39 [place] [address] [place] [id number] [place] [address] 94911- 1720 Apr, [facility] [address] [place] [id number] [place] [address] 07976- 1088 Apr, Infected skin lesion L08.9 and Muscle strain of right shoulder region, initial encounter S46.911A [place] [address] [place] [address] 17296- 8730 Apr, Generalized anxiety disorder F41.1 and Major depressive disorder, recurrent episode with anxious distress F33.9 [facility] [address] [place] [address] 97409- 3644 Apr, [facility] [address] [place] [id number] [place] [address] 94647- 0198 Apr, Recent urinary tract infection Z87.440 and Hypothyroid E03.9 [facility] [address] [place] [address] 06648- 0615 Apr, Generalized anxiety disorder F41.1 and Major depressive disorder, recurrent episode with anxious distress F33.9 [facility] [address] [address]- 6297 Apr, Recent urinary tract infection Z87.440 [facility] [address] [place] [id number] [place] [address] 96927- 9582 28 Mar, 2017 [facility] [address] [place] [address] 58443 -8402 Mar, Dysuria R30.0 ; Acute cystitis without hematuria N30.00 and BMI 40.0-44.9, adult Z68.41 [place] [address] [place] [address] 81631- 1460 14 Mar, 2017 [place] [address] [place] [id number] [place] [address] 98517- 0900 Mar, [place] [address] [place] [address] 03943- 7762 Mar, Generalized anxiety disorder F41.1 and Major depressive disorder, recurrent episode with anxious distress F33.9 [place] [id number] [place] [address] 40482- 7704 29 Feb, 2017 Conjunctivitis, bacterial H10.9 [place] [id number] [place] [address] 32563- 9718 27 Feb, 2017 [facility] [address] [address] Feb, Conjunctivitis, bacterial H10.9 [facility] [address] [address]- 0043 15 Feb, 2017 [facility] [id number] [place] [address] 76332 -6359 10 Feb, 2017 Dysuria R30.0 ; Acute cystitis N30.00 and BMI 40.0-44.9, adult Z68.41 [facility] [address] [address]- 3446 08 Feb, 2017 [facility] [address] [place] [address] 61796- 4342 Feb, Generalized anxiety disorder F41.1 and Major depressive disorder, recurrent episode with anxious distress F33.9 [place] [id number] [place] [address] 43386- 7159 Feb, Mood disorder F39 and BMI 40.0-44.9, adult Z68.41 [place] [id number] [place] [address] 32078- 2336 Jan, [place] [id number] [place] [address] 38901- 8809 Jan, [place] [id number] [place] [address] 83408- 9037 Jan, Hypothyroid E03.9 [place] [id number] [place] [address] 52202- 2899 Jan, [place] [id number] [place] [address] 52337- 8230 Jan, Chronic kidney disease, unspecified N18.9 ; Hypokalemia E87.6 ; Essential (primary) hypertension I10 ; Fibromyalgia M79.7 ; Coronary artery disease involving emmonak coronary artery of emmonak heart, angina presence unspecified I25.10 ; Hypothyroid E03.9 and Encounter for immunization Z23 [place] [id number] [place] [address] 87573- 3982 Jan, Hypothyroid E03.9 [place] [address] [place] [id number] [place] [address] 03478- 4198 Jan, [place] [id number] [place] [address] 71094- 4130 Dec, Vitamin D deficiency E55.9 [place] [id number] [place] [address] 39785- 3959 Dec, Primary osteoarthritis of left knee M17.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 [place] [id number] [address]- 4558 19 Dec, 2016 Fibromyalgia M79.7 [facility] [address] [place] [id number] [place] [address] 82586- 5865 18 Dec, 2016 Mood disorder F39 [facility] [address] [place] [id number] [place] [address] 05856- 1328 13 Dec, 2016 [facility] [address] [place] [id number] [place] [address] 18303- 3248 13 Dec, 2016 Generalized anxiety disorder F41.1 and Major depressive disorder, recurrent episode with anxious distress F33.9 [facility] [address] [place] [id number] [place] [address] 73667- 6835 11 Dec, 2016 [facility] [address] [place] [id number] [place] [address] 01267- 9466 08 Dec, 2016 Streptococcal meningitis G00.2 [facility] [address] [place] [id number] [place] [address] 28375- 2883 07 Dec, 2016 Streptococcal meningitis G00.2 [facility] [id number] [place] [address] 50342- 4761 07 Dec, 2016 [facility] [address] [place] [id number] [place] [address] 94358- 4189 06 Dec, 2016 Streptococcal meningitis G00.2 [facility] [address] [place] [address] 00590- 0323 06 Dec, 2016 [facility] [address] [place] [address] 75959- 2549 06 Dec, 2016 Major depressive disorder, recurrent episode with anxious distress F33.9 [facility] [address] [place] [id number] [place] [address] 11361- 7797 Nov, Fever, unspecified fever cause R50.9 [facility] [address] [place] [address] 49544- 5345 Nov, [facility] [address] [place] [id number] [place] [address] 99042- 5362 Nov, Hypothyroid E03.9 [facility] [address] [place] [id number] [place] [address] 44997- 8965 Nov, Generalized anxiety disorder F41.1 and Major depressive disorder, recurrent episode with anxious distress F33.9 [facility] [address] [place] [id number] [place] [address] 94834- 8306 Nov, [facility] [address] [place] [id number] [place] [address] [id number] Oct, Dental examination Z01.20 [facility] [address] [place] [id number] [place] [address] 07445- 2594 Oct, Generalized anxiety disorder F41.1 and Major depressive disorder, recurrent episode with anxious distress F33.9 [facility] [address] [place] [id number] [place] [address] 28852- 2658 Oct, Chronic kidney disease, stage 4 (severe) N18.4 [facility] [address] [place] [id number] [place] [address] 91068- 0441 Oct, [facility] [address] [place] [id number] [place] [address] 32346- 5446 Oct, Fibromyalgia M79.7 [facility] [address] [place] [id number] [place] [address] 17479- 3554 Oct, [facility] [address] [place] [id number] [place] [address] 80719- 3089 Oct, Generalized anxiety disorder F41.1 ; Major depressive disorder, recurrent episode with anxious distress F33.9 and Bipolar disorder, current episode manic without psychotic features F31.10 [facility] [address] [place] [id number] [place] [address] 86932- 1376 Sep, [facility] [address] [place] [id number] [place] [address] 78567- 9520 Sep, [facility] [address] [place] [id number] [place] [address] 14702- 3723 Sep, Vitamin D deficiency E55.9 [place] [address], [place] [address]- 5532 14 Sep, 2016 Vitamin D deficiency E55.9 [place] [address] [place] [address] 85156- 3429 Sep, [place] [address] [place] [id number] [place] [address] 22007- 0166 Sep, Chronic kidney disease, stage 4 (severe) N18.4 ; Hypothyroid E03.9 ; Restless leg G25.81 ; Fibromyalgia M79.7 ; Essential ( primary) hypertension I10 ; Vitamin D deficiency E55.9 ; Dyspepsia R10.13 ; Anemia in chronic kidney disease D63.1 ; Chronic kidney disease, unspecified N18.9 ; Coronary artery disease involving em[place]ak coronary artery of emmonak heart , angina presence unspecified I25.10 ; Screening breast examination Z12.39 and Low back pain M54.5 [place] [address] [place] [id number] [place] [address] 83076- 0041 August, Generalized anxiety disorder F41.1 and Major depressive disorder, recurrent episode with anxious distress F33.9 [place] [address] [place] [id number] [place] [address] 46253- 5574 August, Generalized anxiety disorder F41.1 and Major depressive disorder, recurrent episode with anxious distress F33.9 [place] [address] [place] [address] 79590- 2292 August, Fibromyalgia M79.7 [place] [address] [place] [id number] [place] [address] 82152- 9774 Jul, Generalized anxiety disorder F41.1 and Major depressive disorder, recurrent episode with anxious distress F33.9 [place] [address] [place] [id number] [place] [address] 50888- 3721 Jul, Fibromyalgia M79.7 [place] [address] [place] [id number] [place] [address] 84168- 3034 Jul, Generalized anxiety disorder F41.1 [place] [id number] [place] [address] 54130- 7763 May, [place] [address] 15778- 5563 16 May, 2016 Hypothyroid E03.9 [place] [address] [place] [id number] [place] [address] 75675- 0130 May, Chronic kidney disease, stage 4 (severe) N18.4 ; Hypothyroid E03.9 ; Restless leg G25.81 ; Fibromyalgia M79.7 ; Essential ( primary) hypertension I10 ; Vitamin D deficiency E55.9 ; Dyspepsia R10.13 ; Acute non-recurrent maxillary sinusitis J01.00 ; Anemia in chronic kidney disease D63.1 ; Chronic kidney disease, unspecified N18.9 and Coronary artery disease involving emmon[place] coronary artery of emmonak heart, angina presence unspecified I25.10 [place] [address] [place] [id number] [place] [address] 22976- 6155 May, Vitamin D deficiency, unspecified E55.9 [place] [address] [place] [id number] [place] [address] 72261- 3238 May, Generalized anxiety disorder F41.1 and Major depressive disorder, recurrent episode with anxious distress F33.9 [place] [address] [place] [id number] [place] [address] 31362- 1127 Apr, Pain in right knee M25.561 and Pain in left knee M25.562 [place] [address] [place] [id number] [place] [address] 23340- 0531 Apr, [place] [address] [place] [id number] [place] [address] 50378- 0843 Apr, [place] [address] [place] [id number] [place] [address] 66314- 1423 Apr, [place] [address] [place] [address] 57147- 8262 Mar, Generalized anxiety disorder F41.1 and Major depressive disorder, recurrent episode with anxious distress F33.9 [facility] [address] [place] [id number] [place] [address] 42834- 8432 Mar, Generalized anxiety disorder F41.1 and Major depressive disorder, recurrent episode with anxious distress F33.9 [place] [address] [place] [id number] [place] [address] 72328- 3282 Mar, [facility] [address] 02025- 6731 Mar, [place] [address] [place] [id number] [place] [address] 35633- 7036 Mar, [place] [address] 37612- 1113 Mar, Asthma J45.909 and Fibromyalgia M79.7 [place] [id number] [place] [address] 21190- 3384 Mar, Chronic kidney disease, stage 4 (severe) N18.4 ; Vitamin D deficiency E55.9 and Essential (primary) hypertension I10 [place] [address] [place] [id number] [place] [address] 95726- 4629 Feb, [place] [address] [place] [id number] [place] [address] 86597- 8724 Feb, Dysuria R30.0 ; Mixed stress and urge urinary incontinence N39.46 ; Fibromyalgia M79.7 and Chronic kidney disease, stage IV (severe) N18.4 [place] [address] [place] [id number] [place] [address] 19642- 1130 Feb, Chronic kidney disease, stage 4 (severe) N18.4 [place] [address] [place] [id number] [place] [address] 35864- 5675 Feb, Chronic kidney disease, stage 4 (severe) N18.4 [place] [address] [place] [id number] [place] [address] 11826- 6971 Feb, [place] [address] [place] [address] [place] [address]- 1156 Feb, Vitamin D deficiency, unspecified E55.9 [place] [address] 62650- 2193 Jan, [facility] [address] [place] [id number] [place] [address] 19862- 7029 Jan, [place] [address] 00127- 0779 Dec, [place] [address] 72283- 2025 Dec, Chronic kidney disease, stage 4 (severe) N18.4 [place] [address] 08845- 2588 Dec, Dysthymic disorder F34.1 and Generalized anxiety disorder F41.1 [place] [address] 98570- 5468 Dec, [place] [address] [place] [id number] [place] [address] 34139- 1226 Dec, [place] [address] [place] [id number] [place] [address] 55600- 5602 Dec, Dysthymic disorder F34.1 and Generalized anxiety disorder F41.1 [place] [address] [place] [id number] [place] [address] 68830- 5511 Dec, Dysuria R30.0 ; Chronic kidney disease, stage 4 (severe) N18.4 ; Hypertension I10 ; Dyspepsia R10.13 ; Yeast dermatitis B37.2 ; Palpitations R00.2 ; Hypothyroid E03.9 ; Functional diarrhea K59.1 and Other seasonal allergic rhinitis J30.2 [facility] [id number] [place] [address] 39727 -4223 Dec, [facility] [address] [id number] [place] [address] 93144 -2464 Nov, Dysuria R30.0 and Stress incontinence N39.3 [place] [address] [place] [id number] [place] [address] 02904- 1205 Nov, [place] [address] [place] [id number] [place] [address] 08432- 9312 Nov, [place] [address] [place] [id number] [place] [address] 15881- 1280 Nov, Osteoarthritis of knees, bilateral M17.0 [place] [address] [place] [id number] [place] [address] 06572- 0880 Nov, Dysthymic disorder F34.1 and Generalized anxiety disorder F41.1 [place] [address] 55139- 4558 Nov, [place] [address] 67618- 2194 Nov, [place] [address] 26404- 5936 Nov, Urgency of urination R39.15 [place] [address] 26249- 6402 Nov, [place] [address] [place] [id number] [place] [address] 78684- 8697 Nov, Chronic kidney disease, stage 4 (severe) N18.4 [place] [address] [place] [id number] [place] [address] 61331- 6462 Oct, Hypertension I10 ; Coronary artery disease involving emmonak coronary artery of emmonak heart, angina presence unspecified I25.10 ; Palpitations R00.2 ; Hypothyroid E03.9 ; Right foot pain M79.671 ; Functional diarrhea K59.1 and Other seasonal allergic rhinitis J30.2 [place] [address] [place] [id number] [place] [address] [id number]- 6658 Oct, Dysthymic disorder F34.1 and Generalized anxiety disorder F41.1 [place] [address] [place] [address] Sep, [facility] [id number] [place] [address] 20743- 6006 Sep, [facility] [id number] [place] [address] 48498- 5458 Sep, [facility] [id number] [place] [address] 97339- 7336 Sep, [facility] [id number] [place] [address] 23298- 9737 Sep, [place] [address] [place] [id number] [place] [address] 03528- 3755 Sep, Dysthymic disorder F34.1 and Generalized anxiety disorder F41.1 [place] [address] [place] [id number] [place] [address] 49123- 7421 16 Sep, 2015 Asthma with acute exacerbation in adult J45.901 ; Dysuria R30.0 ; Chronic kidney disease, stage 4 (severe) N18.4 and History of anemia Z86.2 [place] [id number] [place] [address] 66411- 5616 Sep, Generalized anxiety disorder F41.1 and Dysthymic disorder F34.1 [place] [id number] [place] [address] 47797- 2692 August, Screening breast examination Z12.39 and Acute recurrent maxillary sinusitis J01.01 [place] [id number] [place] [address] 08344- 1384 August, Osteoarthritis of knees, bilateral M17.0 [place] [id number] [place] [address] 92217- 9472 August, Chronic kidney disease, stage 4 (severe) N18.4 ; Acute non- recurrent maxillary sinusitis J01.00 ; Urinary problem R39.89 ; Bowel habit changes R19.4 ; Functional diarrhea K59.1 and History of colon polyps Z86.010 [place] [address], [place] [address] 29 Jul, 2015 Dysthymic disorder F34.1 and Generalized anxiety disorder F41.1 [facility] [id number] [place] [address] 55167- 5195 Jul, [facility] [id number] [place] [address] 39169- 1544 Jul, Dysthymic disorder F34.1 ; Generalized anxiety disorder F41.1 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 [facility] [id number] [place] [address] 11983- 8266 Jul, [facility] [id number] [place] [address] 27097- 4064 16 Jun, 2015 [facility] [id number] [place] [address] 01332- 4308 Jun, [facility] [id number] [place] [address] 12814- 5076 May, [facility] [id number] [place] [address] 85424- 5423 May, Dysthymic disorder F34.1 and Generalized anxiety disorder F41.1 [facility] [id number] [place] [address] 29848- 2572 Apr, Kidney disease N28.9 [facility] [id number] [place] [address] 97878- 9824 Apr, Generalized anxiety disorder F41.1 and Dysthymic disorder F34.1 [facility] [id number] [place] [address] 27961- 8992 Apr, Chronic kidney disease, stage 4 (severe) N18.4 [facility] [address], [place] [address] Apr, Generalized anxiety disorder F41.1 ; Major depression, recurrent F33.9 and Sleep disturbance G47.9 [facility] [place] [id number] [place] [address] 50572- 0118 Mar, Generalized anxiety disorder F41.1 and Dysthymic disorder F34.1 [facility] [id number] [place] [address] 91372- 0924 Mar, Generalized anxiety disorder F41.1 ; Dysthymic disorder F34.1 and Insomnia G47.00 [facility] [id number] [place] [address] 13030- 6208 Mar, [facility] [id number] [place] [address] 84180- 9823 Mar, [facility] [id number] [place] [address] 07063- 3635 Mar, Osteoarthritis of knees, bilateral M17.0 [place] [id number] [place] [address] 52034- 7248 Mar, Hypertension I10 ; Hypothyroid E03.9 ; Dysthymic disorder F34.1 ; Chronic kidney disease, stage 4 (severe) N18.4 and Nausea & vomiting R11.2 [facility] [place] [id number] [place] [address] 38501- 8154 Mar, Generalized anxiety disorder F41.1 ; Dysthymic disorder F34.1 and Insomnia G47.00 [facility] [place] [id number] [place] [address] 65683- 8900 Mar, Dehydration E86.0 ; Chronic kidney disease, stage 4 (severe ) N18.4 and Nausea & vomiting R11.2 [facility] [id number] [place] [address] 58492 -1212 Mar, Gastroenteritis K52.9 [facility] [id number] [place] [address] 66584- 3772 Mar, [facility] [id number] [place] [address] 41410- 5574 Mar, [facility] [id number] [place] [address] 02956- 1102 Feb, Dysthymic disorder F34.1 and Generalized anxiety disorder F41.[address] 58700- 4124 Jan, UTI (urinary tract infection) N39.0 ; Asthma J45.909 ; Coronary artery disease involving emmonak coronary artery of emmonak heart, angina presence unspecified I25.10 ; Hypertension I10 ; Hypothyroid E03.9 ; Vitamin D deficiency E55.9 ; Insomnia G47.00 ; Palpitations R00.2 ; Depressed F32.9 ; Restless leg G25.81 and Anxiety F41.[address] 98614- 2179 Jan, Dysthymic disorder F34.1 and Generalized anxiety disorder F41.[address] 84179- 2781 Jan, [address] 40272- 1743 Dec, [address] 56073- 1093 Dec, Alkalosis 276.3 ; Chronic kidney disease, Stage IV (severe) 585.4 ; Hyperpotassemia 276.7 ; Secondary hyperparathyroidism, renal 588.81 ; Proteinuria 791.0 ; Unspecified vitamin D deficiency 268.9 ; Anemia in chronic kidney disease 285.21 ; Other and unspecified hyperlipidemia 272.4 ; Hypertension, essential, benign 401.1 and Chronic kidney disease (CKD), stage III (moderate) 585.[address] 37986- 0395 Dec, [address] 77587- 4899 Dec, Depressive disorder, not elsewhere classified 311 and Generalized anxiety disorder 300.[address] 47786- 3684 Dec, [facility] [id number] [place] [address] 55421- 7317 Dec, [facility] [id number] [place] [address] 82803- 4717 Nov, Depressive disorder, not elsewhere classified 311 and Generalized anxiety disorder 300.02 [facility] [id number] [place] [address] 80061- 2871 Nov, Arthritis of both knees 716.96 [place] [id number] [place] [address] 25436- 4857 Nov, PAF (paroxysmal atrial fibrillation) 427.31 ; CAD (coronary artery disease) 414.00 ; Chest pain 786.50 and Chronic kidney disease (CKD) stage G4/A1, severely decreased glomerular filtration rate (GFR) between 15-29 mL/min/1.73 square meter and albuminuria creatinine ratio less than 30 mg/g 585.4 [facility] [id number] [place] [address] 00876- 0300 Oct, Coronary atherosclerosis of unspecified type of vessel, emmonak or graft 414.00 ; Chronic kidney disease, Stage IV (severe) 585.4 ; Hypertension 401.9 and Edema 782.3 [facility] [place] [id number] [place] [address] 16011- 2225 Oct, Depressive disorder, not elsewhere classified 311 and Generalized anxiety disorder 300.02 [facility] [id number] [place] [address] 54603- 6004 Oct, Depressive disorder, not elsewhere classified 311 and Generalized anxiety disorder 300.02 [facility] [id number] [place] [address] 31866- 1875 Oct, [facility] [id number] [place] [address] 40541- 9806 Oct, [facility] [address] [place] [address] 46394- 8188 Sep, [facility] [id number] [place] [address] 92644- 4085 Sep, Chronic kidney disease, Stage IV (severe) 585.4 [facility] [id number] [place] [address] 39056- 5253 Sep, [facility] [id number] [place] [address] 01390- 2081 Sep, Coronary atherosclerosis of unspecified type of vessel, emmonak or graft 414.00 ; Hypertension 401.9 ; Edema 782.3 and Hypothyroidism 244.9 [facility] [id number] [place] [address] 47431- 4179 Sep, Coronary atherosclerosis of unspecified type of vessel, emmonak or graft 414.00 ; Hypertension 401.9 ; Fibromyalgia 729.1 ; Edema 782.3 ; Hypothyroidism 244.9 and Anemia 285.9 [facility] [place] [id number] [place] [address] 60555- 6715 Sep, Anxiety disorder, unspecified 300.00 and Depressive disorder , not elsewhere classified 311 [facility] [id number] [place] [address] 97813- 3293 Sep, [facility] [id number] [place] [address] 08333- 1306 August, Generalized anxiety disorder 300.02 [facility] [id number] [place] [address] 04763- 4275 August, Closed fracture of lateral malleolus 824.2 [facility] [id number] [place] [address] 70378- 0903 Jul, [facility] [id number] [place] [address] 60460- 7444 Jul, [facility] [id number] [place] [address] 73700- 2876 Jun, [facility] [id number] [place] [address] 43711- 4418 Jun, [facility] [place] [facility] [address] [id number] [place] [address]- 5257 13 Jun, 2014 [facility] [place] [facility] [address] [id number] [place] [address]- 7608 13 Jun, 2014 [facility] [place] [facility] [address] [id number] [place] [address]- 5317 Jun, 2014 [facility] [place] [facility] [address] [id number] [place] [address]- 4503 02 Jun, 2014 [facility] [place] [facility] [address] [id number] [place] [address]- 7424 May, 2014 [facility] [place] [facility] [address] [id number] [place] [address]- 6225 19 May, 2014 [facility] [place] [facility] [address] [facility] [id number] [place] [address]- 9165 18 May, 2014 [facility] [place] [facility] [address] [id number] [place] [address]- 4352 18 May, 2014 [facility] [place] [facility] [address] [id number] [place] [address]- 1726 16 May, 2014 [facility] [place] [facility] [address] [facility] [id number] [place] [address]- 5004 16 May, 2014 [facility] [place] [facility] [address] [facility] [id number] [place] [address]- 5258 13 May, 2014 [facility] [place] [facility] [address] [id number] [place] [address]- 1189 13 May, 2014 [facility] [place] [facility] [address] [id number] [place] [address]- 2545 10 May, 2014 [facility] [place] [facility] [address] [id number] [place] [address]- 4483 10 May, 2014 [facility] [place] [facility] [address] [id number] [place] [address]- 5852 Apr, [facility] [place] [facility] [address] [id number] [place] [address]- 1533 Apr, [facility] [place] [facility] [address] [id number] [place] [address]- 2193 Mar, [facility] [place] [facility] [address] [id number] [place] [address]- 8384 Mar, [facility] [place] [facility] [address] [id number] [place] [address]- 9344 Mar, [facility] [place] [facility] [address] [id number] [place] [address]- 9399 Mar, [facility] [place] [facility] [address] [id number] [place] [address]- 1849 Mar, [facility] [place] [facility] [address] [id number] [place] [address]- 2428 Mar, [facility] [place] [facility] [address] [id number] [place] [address]- 6159 Mar, [facility] [place] [facility] [address] [id number] [place] [address]- 8864 Feb, [facility] [place] [facility] [address] [id number] [place] [address]- 3598 Feb, [facility] [place] [facility] [address] [id number] [place] [address]- 9079 Feb, [facility] [place] [facility] [address] [id number] [place] [address]- 9966 Jan, [facility] [place] [facility] [address] [id number], [place] [address]- 2147 Jan, [facility] [place] [facility] [address] [id number] [place] [address]- 0935 Jan, [facility] [place] [facility] [address] [id number] [place] [address]- 5378 Jan, [facility] [place] [facility] [address] [id number], [place] [address]- 6913 Jan, [facility] [place] [facility] [address] [id number] [place] [address]- 1282 Jan, [facility] [place] [facility] [address] [id number] [place] [address]- 3382 Jan, [facility] [place] [facility] [address] [id number] [place] [address]- 6415 Jan, [facility] [place] [facility] [address] [id number] [place] [address]- 5867 Jan, [facility] [place] [facility] [address] [id number] [place] [address]- 1868 Jan, [facility] [place] [facility] [address] [id number] [place] [address]- 6750 Nov, [facility] [place] [facility] [address] [id number] [place] [address]- 9624 Nov, [facility] [place] [facility] [address] [id number] [place] [address]- 6202 Nov, [facility] [place] [facility] [address] [id number] [place] [address]- 9257 Oct, [facility] [place] [facility] [address] [id number] [place] [address]- 9019 Oct, [facility] [place] [facility] [address] [id number] [place] [address]- 4604 Oct, [facility] [place] [facility] [address] [id number] [place] [address]- 5908 Oct, [facility] [place] [facility] [address] [id number] [place] [address]- 5630 Oct, [facility] [place] [facility] [address] [id number] [place] [address]- 5953 Oct, [facility] [place] [facility] [address] [id number] [place] [address]- 4310 Oct, [facility] [place] [facility] [address] [id number] [place] [address]- 1671 Oct, [facility] [place] [facility] [address] [id number] [place] [address]- 3932 Oct, [facility] [place] [facility] [address] [id number] [place] [address]- 9626 Sep, [facility] [place] [facility] [address] [id number] [place] [address]- 5029 Sep, [facility] [place] [facility] [address] [id number] [place] [address]- 2010 Sep, [facility] [place] [facility] [address] [id number] [place] [address]- 9823 Sep, [facility] [place] [facility] [address] [id number] [place] [address]- 1308 Sep, [facility] [place] [facility] [address] [id number] [place] [address]- 9972 Sep, [facility] [place] [facility] [address] [id number] [place] [address]- 3657 Sep, [facility] [place] [facility] [address] [id number] [place] [address]- 1446 Sep, [facility] [place] [facility] [address] [id number] [place] [address]- 3230 Sep, [facility] [place] [facility] [address] [id number], [place] [address]- 8621 August, [facility] [place] [facility] [address] [id number], [place] [address]- 3629 August, [facility] [place] [facility] [address] [id number] [place] [address]- 0318 August, [facility] [place] [facility] [address] [id number] [place] [address]- 3395 August, [facility] [place] [facility] [address] [id number] [place] [address]- 3907 August, [facility] [place] [facility] [address] [id number] [place] [address]- 9764 August, [facility] [place] [facility] [address] [id number] [place] [address]- 0928 Jul, [facility] [place] [facility] [address] [id number] [place] [address]- 3586 Jul, [facility] [place] [facility] [address] [id number] [place] [address]- 4583 Jul, [facility] [place] [facility] [address] [id number] [place] [address]- 0696 Jul, [facility] [place] [facility] [address] [id number] [place] [address]- 4716 Jul, [facility] [place] [facility] [address] [id number] [place] [address]- 9822 Jul, [facility] [place] [facility] [address] [id number] [place] [address]- 3370 Jun, [facility] [place] [facility] [address] [id number] [place] [address]- 2801 Jun, [facility] [place] [facility] [address] [id number] [place] [address]- 2650 May, [facility] [place] [facility] [address] [id number] [place] [address]- 7269 May, [facility] [place] [facility] [address] [id number] [place] [address]- 1409 May, [facility] [place] [facility] [address] [id number] [place] [address]- 2187 May, [facility] [place] [facility] [address] [id number] [place] [address]- 4311 Apr, [facility] [place] [facility] [address] [id number] [place] [address]- 1817 Apr, [facility] [place] [facility] [address] [id number] [place] [address]- 4540 Mar, [facility] [place] [facility] [address] [id number] [place] [address]- 2254 18 Mar, 2013 [facility] [place] [facility] [address] [id number] [place] [address]- 9361 17 Mar, 2013 [facility] [place] [facility] [address] [id number] [place] 8850 17 Mar, 2013 [facility] [place] [facility] [address] [id number] [place] [address]- 0586 05 Mar, 2013 [facility] [place] [facility] [address] [id number] [place] [address]- 1192 05 Mar, 2013 [facility] [place] [facility] [address] [id number] [place] [address]- 4510 Feb, [facility] [place] [facility] [address] [id number] [place] [address]- 6561 Feb, [facility] [place] [facility] [address] [id number] [place] [address]- 5311 14 Feb, 2013 [facility] [place] [facility] [address] [id number] [place] [address]- 5710 Feb, [facility] [place] [facility] [address] [id number], [place] [address]- 8652 Feb, [facility] [place] [facility] [address] [id number], [place] [address]- 4074 Feb, [facility] [place] [facility] [address] [id number], [place] [address]- 9988 24 Jan, 2013 [facility] [place] [facility] [address] [id number] [place] [address]- 6396 24 Jan, 2013 [facility] [place] [facility] [address] [id number] [place] [address]- 4722 10 Jan, 2013 [facility] [place] [facility] [address] [id number] 4056 10 Jan, 2013 [facility] [place] [facility] [address] [id number] [place] [address]- 0503 Jan, [facility] [address] [id number] [place] [address]- 2053 Jan, [facility] [place] [facility] [address] [id number] [place] [address]- 5651 Dec, [facility] [place] [facility] [address] [id number] [place] [address]- 1332 Dec, [facility] [place] [facility] [address] [id number] [place] [address]- 6118 Nov, [facility] [place] [facility] [address] [id number] [place] [address]- 0552 Nov, [facility] [place] [facility] [address] [id number] [place] [address]- 3814 Oct, [facility] [address] [id number] [place] [address]- 2437 Oct, [facility] [place] [facility] [address] [id number] [place] [address]- 5125 Oct, [facility] [place] [facility] [address] [id number] [place] [address]- 2986 Oct, [facility] [place] [facility] [address] [id number] [place] [address]- 5603 Oct, [facility] [place] [facility] [address] [id number] [place] [address]- 2119 Oct, [facility] [place] [facility] [address] [id number] [place] [address]- 4488 Sep, [facility] [place] [facility] [address] [id number] [place] [address]- 9014 Sep, [facility] [place] [facility] [address] [id number] [place] [address]- 0968 Sep, [facility] [place] [facility] [address] [id number] [place] [address]- 9044 Sep, [facility] [place] [facility] [address] [id number] [place] [address]- 1180 August, [facility] [address] [id number] [place] 0508 August, [facility] [address] [id number] [place] [address]- 0630 August, [facility] [address] [id number] [place] [address]- 7017 August, [facility] [address] [id number] [place] [address]- 2334 August, [facility] [address] [id number] [place] [address]- 2887 Jul, [facility] [address] [id number] [place] [address]- 2179 Jul, [facility] [address] [id number] [place] [address]- 0546 Jul, [facility] [address] [id number] [place] [address]- 0785 Jul, [facility] [place] [facility] [address] [id number] [place] [address]- 8802 Jul, [facility] [address] [id number] [place] [address]- 5516 Jul, [facility] [address] [id number] [place] [address]- 2608 Jul, [facility] [address] [id number] [place] [address]- 4945 Jul, [facility] [address] [id number] [place] [address]- 6620 Jul, [facility] [address] [id number] [place] [address] Jul, [facility] [place] [place] [id number] [facility] [id number] [id number] Jun, [facility] [address] [id number] [place] [address] Jun, [facility] [address] [id number] [place] [address] Jun, [facility] [address] [id number] [place] [address] Jun, [facility] [address] [id number] [place] [address] Jun, [facility] [address] [id number] [place] [address] May, [facility] [address] [id number] [place] [address] May, [facility] [address] [id number] [place] [address] May, [facility] [address] [id number] [place] [address] Apr, [facility] [address] [id number] [place] [address] Apr, [facility] [address] [id number] [place] [address] Apr, [facility] [address] [id number] [place] [address] Apr, [facility] [place] [facility] [address] [id number], [place] [address] Apr, [facility] [place] [facility] [address] [id number] [place] [address] Apr, [facility] [address] [id number] [place] [address] Mar, [facility] [place] [facility] [address] [id number] [place] [address] Mar, [facility] [address] [id number] [place] [address] 18 Mar, 2012 [facility] [place] [facility] [address] [id number] [place] [address] Mar, [facility] [place] [facility] [address] [id number] [place] [address] Feb, [facility] [place] [facility] [address] [id number] [place] [address] Feb, [facility] [place] [facility] [address] [id number] [place] [address] Feb, [facility] [place] [facility] [address] [id number] [place] [address] Feb, [facility] [place] [facility] [address] [id number] [place] [address]87 Feb, [facility] [place] [facility] [address] [id number] [place] [address] Feb, [facility] [place] [facility] [address] [id number] [place] [address] Feb, [facility] [place] [facility] [address] [id number] [place] [address] Feb, [facility] [place] [facility] [address] [facility] [id number] [place] [address] Feb, [facility] [place] [facility] [address] [id number] [place] [address] Feb, [facility] [place] [facility] [address] [id number], [place] [address] Feb, [facility] [place] [facility] [address] [id number] [place] [address] Feb, [facility] [place] [facility] [address] [id number] [place] [address] Feb, [facility] [place] [facility] [address] [id number], [place] [address] Feb, [facility] [place] [facility] [address] [id number] [place] [address] Feb, [facility] [place] [facility] [address] [id number] [place] [address] Feb, [facility] [place] [facility] [address] [id number] [place] [address] Jan, [facility] [place] [facility] [address] [id number] [place] [address] Jan, [facility] [place] [facility] [address] [id number] [place] [address] Jan, [facility] [place] [facility] [address] [id number] [place] [address] Jan, [facility] [place] [facility] [address] [id number] [place] [address] Jan, [facility] [place] [facility] [address] [id number] [place] [address] Jan, [facility] [place] [facility] [address] [id number] [place] [address]- [address] Jan, [facility] [place] [facility] [address] [id number] [place] [address] Jan, [facility] [place] [facility] [address] [id number] [place] [address] Jan, [facility] [place] [facility] [address] [id number], [place] [address] Jan, [facility] [place] [facility] [address] [id number] [place] [address] 15 Jan, 2012 [facility] [place] [facility] [address] [id number] [place] [address] Jan, [facility] [place] [facility] [address] [id number] [place] [address] Dec, [facility] [place] [facility] [address] [id number], [place] [address] 26 Sep, 2011 [facility] [place] [facility] [address] [id number] [place] [address] 24 Sep, 2011 [facility] [place] [facility] [address] [id number] [place] [address] 23 Sep, 2011 [facility] [place] [facility] [address] [id number] [place] [address] 2546 22 Sep, 2011 [facility] [place] [facility] [address] [id number] [place] [address] 21 Sep, 2011 [facility] [place] [facility] [address] [id number] [place] [address] 20 Sep, 2011 [facility] [place] [facility] [address] [id number] [place] [address] 20 Sep, 2011 [facility] [place] [facility] [address] [id number] [place] [address]- [address] 07 Sep, 2011 [facility] [place] [facility] [address] [id number] [place] [address] 06 Sep, 2011 [facility] [place] [facility] [address] [id number] [place] [address]- [address] 06 Sep, 2011 [facility] [place] [facility] [address] [id number] [place] [address]- [address] 05 Dec, 2011 [facility] [place] [facility] [address] [id number] [place] [address] 23 Nov, 2011 [facility] [place] [facility] [address] [id number] [place] [address]- [address] 17 Nov, 2011 [facility] [place] [facility] [address] [id number] [place] [address] 13 Nov, 2011 [facility] [place] [facility] [address] [id number] [place] [address] 10 Nov, 2011 [facility] [place] [facility] [address] [id number] [place] [address] 08 Nov, 2011 [facility] [place] [facility] [address] [id number] [place] [address] Nov, [facility] [address] [id number] [place] [address] Nov, [facility] [address] [id number] [place] [address] Nov, [facility] [address] [id number] [place] [address] Oct, [facility] [address] [id number] [place] [address] Oct, [facility] [address] [id number] [place] [address] Oct, [facility] [address] [id number] [place] [address] Oct, [facility] [address] [id number] [place] [address] Oct, [facility] [address] [id number] [place] [address] Oct, [facility] [address] [id number] [place] [address] Oct, [facility] [address] [id number] [place] [address] Sep, [facility] [place] [facility] [address] [id number] [place] [address] Sep, [facility] [address] [id number] [place] [address] August, [facility] [place] [facility] [address] [id number] [place] [address] August, [facility] [place] [facility] [address] [id number] [place] [address] August, [facility] [address] [id number] [place] [address] August, [facility] [address] [id number] [place] [address] Jul, [facility] [place] [facility] [address] [id number] [place] [address] Jul, [facility] [place] [facility] [address] [id number] [place] [address] Jul, [facility] [place] [facility] [address] [id number] [place] [address] Jul, [facility] [place] [facility] [address] [id number] [place] [address] Jul, [facility] [place] [facility] [address] [id number] [place] [address] Jul, [facility] [place] [facility] [address] [id number] [place] [address] Jul, [facility] [place] [facility] [address] [id number] [place] [address] Jul, [facility] [place] [facility] [address] [id number] [place] [address] Jul, [facility] [place] [facility] [address] [id number] [place] [address] Jun, [facility] [place] [facility] [address] [id number] [place] [address] 19 Jun, 2011 [facility] [place] [facility] [address] [id number], [place] [address] 15 Jun, 2011 [facility] [place] [facility] [address] [id number] [place] [address] 14 Jun, 2011 [facility] [place] [facility] [address] [id number] [place] [address] 12 Jun, 2011 [facility] [place] [facility] [address] [id number], [place] [address] 09 Jun, 2011 [facility] [place] [facility] [address] [id number], [place] [address] Jun, [facility] [address] [id number] [place] [address] May, [facility] [place] [facility] [address] [id number] [place] [address] May, [facility] [place] [facility] [address] [id number] [place] [address] May, [facility] [place] [facility] [address] [id number] [place] [address] May, [facility] [place] [facility] [address] [id number] [place] [address] May, [facility] [place] [facility] [address] [id number] [place] [address] Apr, [facility] [address] [id number] [place] [address] Apr, [facility] [address] [id number] [place] [address] Apr, [facility] [place] [facility] [address] [id number] [place] [address] Apr, [facility] [address] [id number] [place] [address] Apr, [facility] [address] [id number] [place] [address] 30 Mar, 2011 [facility] [place] [facility] [address] [id number] [place] [address] Mar, [facility] [place] [facility] [address] [id number] [place] [address] 2546 Mar, [facility] [place] [facility] [address] [id number] [place] [address]- [address] Mar, [facility] [place] [facility] [address] [id number] [place] [address] 254 Mar, [facility] [place] [facility] [address] [id number] [place] [address]- 4[address] Mar, [facility] [place] [facility] [address] [id number] [place] [address] Mar, [facility] [place] [facility] [address] [id number] [place] [address] Feb, [facility] [place] [facility] [address] [id number] [place] [address] Feb, [facility] [place] [facility] [address] [id number] [place] [address] Feb, [facility] [place] [facility] [address] [id number] [place] [address]- 40[address] Feb, [facility] [place] [facility] [address] [id number] [place] [address] 275[address] Jan, [facility] [place] [facility] [address] [id number] [place] [address] Jan, [facility] [place] [facility] [address] [id number] [place] [address] Jan, [facility] [place] [facility] [address] [id number] [place] [address] 5[address] Jan, [facility] [place] [facility] [address] [id number] [place] [address] Nov, [facility] [place] [facility] [address] [id number] [place] [address] Mar, [facility] [place] [facility] [address] [id number] [place] [address] Mar, [facility] [place] [facility] [address] [id number] [place] [address]- 138[address] Mar, [facility] [place] [facility] [address] [id number] [place] [address] 3[address] Mar, [facility] [place] [facility] [address] [id number], [place] [address] Mar, [facility] [address] [facility] [id number] [place] [address] Mar, [facility] [address] [facility] [id number], [place] [address] Feb, [facility] [address] [facility] [id number], [place] [address] Feb, [facility] [address] [facility] [id number], [place] [address] 2546 Jan, [facility] [address] [facility] [id number], [place] [address] Jan, [facility] [address] [facility] [id number], [place] [address] 2546 Jan, IMMUNIZATIONS No Known Immunizations SOCIAL HISTORY Never Assessed REASON FOR VISIT Lab (walk-in) PLAN OF CARE Activity Details Pending Test PHOSPHORUS VITAL SIGNS MEDICATIONS Unknown Medications RESULTS No Results PROCEDURES Procedure Date Ordered Result Body Site LAB NOT BILLED BY [facility] August 07, 2017 VENIPUNCT, ROUTINE* August 07, 2017 INSTRUCTIONS MEDICATIONS ADMINISTERED No Known Medications [...] 2020 & 2007 Surgical History Bladder surgery [facility] 03/2016 Surgical History Neurotransmitter placed 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
--- OUTSIDE RECORDS SUMMARY | 2018-05-29 08:50 | XMS REPORT ---
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 Yarns Name Role Phone ISABEL MAE Unavailable PROBLEMS Type Condition ICD9-CM Code [id number] Code Onset Dates Condition Status SNOMED Code Problem Long-term use of high-risk medication Z79.899 Active 471928206 Problem Abnormal chest CT R93.8 Active 946015657 Problem Generalized anxiety disorder F41.1 Active 70359540 Problem Low back pain M54.5 Active 744447551 Problem Dysthymic disorder F34.1 Active 99356181 Problem Depressed F32.9 Active 52482193 Problem Coronary artery disease involving [place] coronary artery of [place] heart, angina presence unspecified I25.10 Active 8933331576170 Problem Hypothyroid E03.9 Active 34461177 Problem Insomnia G47.00 Active 231238991 Problem Vitamin D deficiency E55.9 Active 47057227 Problem Asthma J45.909 Active 737450044 Problem Chronic kidney disease, unspecified N18.9 Active 620887617 Problem Palpitations R00.2 Active 23371105 Problem Anemia in chronic kidney disease D63.1 Active 329846297639860 Problem Primary osteoarthritis of left knee M17.12 Active 678917580 Problem Bipolar disorder, current episode manic without psychotic features F31.10 Active 638834040 Problem Restless leg syndrome G25.81 Active 12582091 Problem Seasonal allergic rhinitis due to pollen J30.1 Active 54232626 Problem Functional diarrhea K59.1 Active 19702753 Problem Chronic kidney disease, stage 4 (severe) N18.4 Active 371360877 Problem Restless leg G25.81 Active 77472549 Problem Mood disorder F39 Active 95326019 Problem Degenerative tear of medial meniscus of left knee M23.204 Active 840511587 Problem Body mass index (BMI) of 40.0-44.9 in adult Z68.41 Active 041459038 Problem Stage 3 chronic kidney disease N18.3 Active 016384262 Problem Asthma with acute exacerbation in adult J45.901 Active 602992587 Problem Other seasonal allergic rhinitis J30.2 Active 052341550 Problem History of colon polyps Z86.010 Active 836736014 Problem History of anemia Z86.2 Active 207693936 Problem Fibromyalgia M79.7 Active 440309988 Problem Essential (primary) hypertension I10 Active 43336342 Problem Hypokalemia E87.6 Active 48226358 Problem Mixed stress and urge urinary incontinence N39.46 Active 473450580 ALLERGIES No Information ENCOUNTERS Encounter Location Date Diagnosis [place] [address] [address] Nov, [place] [address] 35153- 6159 Nov, Complicated UTI (urinary tract infection) N39.0 [place] [address] 07173- 9824 Oct, [place] [address] [place] [id number] [place] [address] 81362- 6517 Oct, Generalized anxiety disorder F41.1 and Major depressive disorder, recurrent episode with anxious distress F33.9 [place] [address] [place] [id number] [place] [address] 28439- 3675 Oct, [place] [address] [place] [id number] [place] [address] 14096- 8532 Oct, Fibromyalgia M79.7 [place] [address] 83849- 8717 Sep, Restless leg syndrome G25.81 and Restless leg G25.81 [place] [address] 11173- 4427 Sep, [place] [address] [place] [id number] [place] [address] 62018- 3442 Sep, Seasonal allergic rhinitis due to pollen J30.1 ; Screening for breast cancer Z12.31 ; Chest pain at rest R07.9 ; Restless leg syndrome G25.81 ; Essential (primary) hypertension I10 and Depressed F32.9 [facility] [address] 81824- 0173 August, Fibromyalgia M79.7 [facility] [address] [place] [id number] [place] [address] 10191- 5162 August, [facility] [address] 79545- 8523 August, [facility] [address] 40709- 1020 August, Abnormal chest CT R93.8 [place] [address] 18254- 3906 August, Generalized anxiety disorder F41.1 and Major depressive disorder, recurrent episode with anxious distress F33.9 [place] [address] 10792- 0042 August, Ab[address] chest [address] R93.8 [facility] [address] [place] [id number] [place] [address] 33864- 9727 Jul, [facility] [address] 83411- 5684 Jul, Chronic kidney disease, stage 4 (severe) N18.4 [place] [address] [place] [id number] [place] [address] 00754- 7988 Jul, [facility] [address] [place] [id number] [place] [address] 64833- 5501 Jul, Restless leg G25.81 ; Mixed stress and urge urinary incontinence N39.46 and Fibromyalgia M79.7 [facility] [address] [place] [id number] [place] [address] 88550- 1388 Jul, Chronic kidney disease, stage 4 (severe) N18.4 [facility] [address] [place] [id number] [place] [address] 08645- 4392 Jun, Orthostatic hypotension I95.1 ; Chronic kidney disease, stage 4 (severe) N18.4 ; Chest wall discomfort R07.89 and Body mass index (BMI) of 40.0-44.9 in adult Z68.41 [facility] [address] [place] [id number] [place] [address] 28962- 5480 Jun, [facility] [address] [place] [id number] [place] [address] 42793- 9905 Jun, Orthostatic hypotension I95.1 [facility] [address] [place] [id number] [place] [address] 19053- 5003 Jun, [facility] [address] 28750 -2314 Jun, Orthostatic hypotension I95.1 ; Dysuria R30.0 and Acute cystitis without hematuria N30.00 [place] [address] [place] [id number] [place] [address] 76946- 1408 Jun, [facility] [address] [place] [id number] [place] [address] 22907- 2135 Jun, Chronic kidney disease, stage 4 (severe) N18.4 [place] [address] [place] [id number] [place] [address] 27213- 2214 Jun, Fibromyalgia M79.7 [facility] [address] [place] [id number] [place] [address] 15066- 2540 Jun, [facility] [address] [place] [id number] [place] [address] 36051- 0062 Jun, [facility] [address] [place] [id number] [place] [address] 16800- [address] May, [address] R93.8 and Stage 3 chronic kidney disease N18.3 [facility] [address] [place] [id number] [place] [address] 83426- 7865 May, Chronic kidney disease, stage 4 (severe) N18.4 [facility] [address] [place] [id number] [place] [address] 76592- 8645 May, Chronic kidney disease, stage 4 (severe) N18.4 [facility] [address] [place] [id number] [place] [address] 09952- [address] May, [address] R93.8 [facility] [address] [place] [id number] [place] [address] 61645- 8509 May, [facility] [address] [place] [id number] [place] [address] 44332- 3625 May, [facility] [address] [place] [id number] [place] [address] 99385- 4214 May, Generalized anxiety disorder F41.1 and Major depressive disorder, recurrent episode with anxious distress F33.9 [place] [address] [place] [id number] [place] [address] 53095- 4505 May, Mood disorder F39 [place] [address] [place] [id number] [place] [address] 13173- 6567 Apr, [facility] [address] [place] [id number] [place] [address] 67925- 5741 Apr, Infected skin lesion L08.9 and Muscle strain of right shoulder region, initial encounter S46.911A [place] [id number] [place] [address] 81569- 5971 Apr, Generalized anxiety disorder F41.1 and Major depressive disorder, recurrent episode with anxious distress F33.9 [facility] [id number] [place] [address] 92863- 6341 Apr, [facility] [address] [place] [id number] [place] [address] 30704- 7386 Apr, Recent urinary tract infection Z87.440 and Hypothyroid E03.9 [facility] [id number] [place] [address] 12954- 3041 Apr, Generalized anxiety disorder F41.1 and Major depressive disorder, recurrent episode with anxious distress F33.9 [facility] [address] [address]- 3307 Apr, Recent urinary tract infection Z87.440 [facility] [address] [place] [id number] [place] [address] 99584- 5896 28 Mar, 2017 [facility] [id number] [place] [address] 78185 -0176 Mar, Dysuria R30.0 ; Acute cystitis without hematuria N30.00 and BMI 40.0-44.9, adult Z68.41 [place] [id number] [place] [address] 29941- 8402 14 Mar, 2017 [place] [address] [place] [id number] [place] [address] 04968- 7549 Mar, [place] [id number] [place] [address] 51852- 0212 Mar, Generalized anxiety disorder F41.1 and Major depressive disorder, recurrent episode with anxious distress F33.9 [place] [id number] [place] [address] 11368- 3329 29 Feb, 2017 Conjunctivitis, bacterial H10.9 [place] [id number] [place] [address] 37082- 0429 27 Feb, 2017 [facility] [id number] [address] -[address] Feb, Conjunctivitis, bacterial H10.9 [facility] [address] [address]- 9669 15 Feb, 2017 [facility] [id number] [place] [address] 46468 -2552 10 Feb, 2017 Dysuria R30.0 ; Acute cystitis N30.00 and BMI 40.0-44.9, adult Z68.41 [facility] [address] [address]- 6935 08 Feb, 2017 [facility] [id number] [place] [address] 17196- 9724 Feb, Generalized anxiety disorder F41.1 and Major depressive disorder, recurrent episode with anxious distress F33.9 [place] [id number] [place] [address] 31683- 1310 Feb, Mood disorder F39 and BMI 40.0-44.9, adult Z68.41 [place] [id number] [place] [address] 71101- 1140 Jan, [place] [id number] [place] [address] 43735- 9372 Jan, [place] [id number] [place] [address] 13610- 6334 Jan, Hypothyroid E03.9 [place] [id number] [place] [address] 13402- 3045 Jan, [place] [id number] [place] [address] 33207- 4911 Jan, Chronic kidney disease, unspecified N18.9 ; Hypokalemia E87.6 ; Essential (primary) hypertension I10 ; Fibromyalgia M79.7 ; Coronary artery disease involving [place] coronary artery of [place] heart, angina presence unspecified I25.10 ; Hypothyroid E03.9 and Encounter for immunization Z23 [place] [id number] [place] [address] 35194- 5189 Jan, Hypothyroid E03.9 [place] [address] [place] [id number] [place] [address] 58082- 3223 Jan, [place] [id number] [place] [address] 15419- 3362 Dec, Vitamin D deficiency E55.9 [place] [id number] [place] [address] 49975- 6598 Dec, Primary osteoarthritis of left knee M17.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 [place] [id number] [address]- 1112 19 Dec, 2016 Fibromyalgia M79.7 [facility] [address] [place] [id number] [place] [address] 66822- 3100 18 Dec, 2016 Mood disorder F39 [facility] [address] [place] [id number] [place] [address] 45398- 0690 13 Dec, 2016 [facility] [address] [place] [id number] [place] [address] 88547- 6836 13 Dec, 2016 Generalized anxiety disorder F41.1 and Major depressive disorder, recurrent episode with anxious distress F33.9 [facility] [address] [place] [id number] [place] [address] 29074- 3477 11 Dec, 2016 [facility] [address] [place] [id number] [place] [address] 02270- 0457 08 Dec, 2016 Streptococcal meningitis G00.2 [facility] [address] [place] [id number] [place] [address] 07442- 9648 07 Dec, 2016 Streptococcal meningitis G00.2 [facility] [id number] [place] [address] 51821- 0462 07 Dec, 2016 [facility] [address] [place] [id number] [place] [address] 69673- 1302 06 Dec, 2016 Streptococcal meningitis G00.2 [facility] [id number] [place] [address] 78402- 7010 06 Dec, 2016 [facility] [id number] [place] [address] 35865- 2549 06 Dec, 2016 Major depressive disorder, recurrent episode with anxious distress F33.9 [facility] [address] [place] [id number] [place] [address] 44787- 2116 Nov, Fever, unspecified fever cause R50.9 [facility] [id number] [place] [address] 92227- 8495 Nov, [facility] [address] [place] [id number] [place] [address] 42226- 8384 Nov, Hypothyroid E03.9 [facility] [address] [place] [id number] [place] [address] 78777- 5463 Nov, Generalized anxiety disorder F41.1 and Major depressive disorder, recurrent episode with anxious distress F33.9 [facility] [address] [place] [id number] [place] [address] 49010- 9178 Nov, [facility] [address] [place] [id number] [place] [address] [id number] Oct, Dental examination Z01.20 [facility] [address] [place] [id number] [place] [address] 24516- 5833 Oct, Generalized anxiety disorder F41.1 and Major depressive disorder, recurrent episode with anxious distress F33.9 [facility] [address] [place] [id number] [place] [address] 51223- 9081 Oct, Chronic kidney disease, stage 4 (severe) N18.4 [facility] [address] [place] [id number] [place] [address] 40587- 6743 Oct, [facility] [address] [place] [id number] [place] [address] 35100- 0747 Oct, Fibromyalgia M79.7 [facility] [address] [place] [id number] [place] [address] 96304- 9966 Oct, [facility] [address] [place] [id number] [place] [address] 15314- 0947 Oct, Generalized anxiety disorder F41.1 ; Major depressive disorder, recurrent episode with anxious distress F33.9 and Bipolar disorder, current episode manic without psychotic features F31.10 [facility] [address] [place] [id number] [place] [address] 97612- 8546 Sep, [facility] [address] [place] [id number] [place] [address] 34362- 0051 Sep, [facility] [address] [place] [id number] [place] [address] 26512- 1185 Sep, Vitamin D deficiency E55.9 [place] [address] [address]- 4121 14 Sep, 2016 Vitamin D deficiency E55.9 [place] [id number] [place] [address] 47341- 8673 Sep, [place] [address] [place] [id number] [place] [address] 42683- 4937 Sep, Chronic kidney disease, stage 4 (severe) N18.4 ; Hypothyroid E03.9 ; Restless leg G25.81 ; Fibromyalgia M79.7 ; Essential ( primary) hypertension I10 ; Vitamin D deficiency E55.9 ; Dyspepsia R10.13 ; Anemia in chronic kidney disease D63.1 ; Chronic kidney disease, unspecified N18.9 ; Coronary artery disease involving [place] coronary artery of [place] heart , angina presence unspecified I25.10 ; Screening breast examination Z12.39 and Low back pain M54.5 [place] [address] [place] [id number] [place] [address] 43834- 6339 August, Generalized anxiety disorder F41.1 and Major depressive disorder, recurrent episode with anxious distress F33.9 [place] [address] [place] [id number] [place] [address] 09420- 2871 August, Generalized anxiety disorder F41.1 and Major depressive disorder, recurrent episode with anxious distress F33.9 [place] [id number] [place] [address] 17688- 2379 August, Fibromyalgia M79.7 [place] [address] [place] [id number] [place] [address] 17847- 8094 Jul, Generalized anxiety disorder F41.1 and Major depressive disorder, recurrent episode with anxious distress F33.9 [place] [address] [place] [id number] [place] [address] 82325- 8906 Jul, Fibromyalgia M79.7 [place] [address] [place] [id number] [place] [address] 75438- 6306 Jul, Generalized anxiety disorder F41.1 [place] [id number] [place] [address] 45826- 7235 May, [place] [address] 21073- 3959 16 May, 2016 Hypothyroid E03.9 [place] [address] [place] [id number] [place] [address] 37416- 2686 May, Chronic kidney disease, stage 4 (severe) N18.4 ; Hypothyroid E03.9 ; Restless leg G25.81 ; Fibromyalgia M79.7 ; Essential ( primary) hypertension I10 ; Vitamin D deficiency E55.9 ; Dyspepsia R10.13 ; Acute non-recurrent maxillary sinusitis J01.00 ; Anemia in chronic kidney disease D63.1 ; Chronic kidney disease, unspecified N18.9 and Coronary artery disease involving [place] coronary artery of [place] heart, angina presence unspecified I25.10 [place] [address] [place] [id number] [place] [address] 10141- 8665 May, Vitamin D deficiency, unspecified E55.9 [place] [address] [place] [id number] [place] [address] 08965- 5349 May, Generalized anxiety disorder F41.1 and Major depressive disorder, recurrent episode with anxious distress F33.9 [place] [address] [place] [id number] [place] [address] 48859- 9833 Apr, Pain in right knee M25.561 and Pain in left knee M25.562 [place] [address] [place] [id number] [place] [address] 57562- 9421 Apr, [place] [address] [place] [id number] [place] [address] 47680- 4661 Apr, [place] [address] [place] [id number] [place] [address] 65989- 8309 Apr, [place] [id number] [place] [address] 88910- 7226 Mar, Generalized anxiety disorder F41.1 and Major depressive disorder, recurrent episode with anxious distress F33.9 [facility] [address] [place] [id number] [place] [address] 85892- 0200 Mar, Generalized anxiety disorder F41.1 and Major depressive disorder, recurrent episode with anxious distress F33.9 [place] [address] [place] [id number] [place] [address] 04128- 7461 Mar, [facility] [address] 45234- 8857 Mar, [place] [address] [place] [id number] [place] [address] 18608- 4785 Mar, [place] [address] 84477- 2364 Mar, Asthma J45.909 and Fibromyalgia M79.7 [place] [id number] [place] [address] 53021- 5869 Mar, Chronic kidney disease, stage 4 (severe) N18.4 ; Vitamin D deficiency E55.9 and Essential (primary) hypertension I10 [place] [address] [place] [id number] [place] [address] 33434- 0102 Feb, [place] [address] [place] [id number] [place] [address] 67662- 1406 Feb, Dysuria R30.0 ; Mixed stress and urge urinary incontinence N39.46 ; Fibromyalgia M79.7 and Chronic kidney disease, stage IV (severe) N18.4 [place] [address] [place] [id number] [place] [address] 53618- 3265 Feb, Chronic kidney disease, stage 4 (severe) N18.4 [place] [address] [place] [id number] [place] [address] 74326- 0354 Feb, Chronic kidney disease, stage 4 (severe) N18.4 [place] [address] [place] [id number] [place] [address] 08669- 7283 Feb, [place] [address] [place] [address] [address]- 4390 Feb, Vitamin D deficiency, unspecified E55.9 [place] [address] 78484- 2397 Jan, [facility] [address] [place] [id number] [place] [address] 00790- 2018 Jan, [place] [address] 53199- 2003 Dec, [place] [address] 53325- 9322 Dec, Chronic kidney disease, stage 4 (severe) N18.4 [place] [address] 49657- 9639 Dec, Dysthymic disorder F34.1 and Generalized anxiety disorder F41.1 [place] [address] 32372- 8878 Dec, [place] [address] [place] [id number] [place] [address] 46572- 5846 Dec, [place] [address] [place] [id number] [place] [address] 08680- 9405 Dec, Dysthymic disorder F34.1 and Generalized anxiety disorder F41.1 [place] [address] [place] [id number] [place] [address] 06846- 8818 Dec, Dysuria R30.0 ; Chronic kidney disease, stage 4 (severe) N18.4 ; Hypertension I10 ; Dyspepsia R10.13 ; Yeast dermatitis B37.2 ; Palpitations R00.2 ; Hypothyroid E03.9 ; Functional diarrhea K59.1 and Other seasonal allergic rhinitis J30.2 [facility] [address] [place] [id number] [place] [address] 70185 -6275 Dec, [facility] [address] [place] [id number] [place] [address] 40406 -9746 Nov, Dysuria R30.0 and Stress incontinence N39.3 [place] [address] [place] [id number] [place] [address] 04536- 0311 Nov, [place] [address] [place] [id number] [place] [address] 09094- 6151 Nov, [place] [address] [place] [id number] [place] [address] 06112- 4320 Nov, Osteoarthritis of knees, bilateral M17.0 [place] [address] [place] [id number] [place] [address] 18748- 0180 Nov, Dysthymic disorder F34.1 and Generalized anxiety disorder F41.1 [place] [address] 70221- 5506 Nov, [place] [address] 25113- 3985 Nov, [place] [address] 11580- 9433 Nov, Urgency of urination R39.15 [place] [address] [address]- [address] Nov, [place] [address] [place] [id number] [place] [address] 40039- 4906 Nov, Chronic kidney disease, stage 4 (severe) N18.4 [place] [address] [place] [id number] [place] [address]- 2769 Oct, Hypertension I10 ; Coronary artery disease involving [place] coronary artery of [place] heart, angina presence unspecified I25.10 ; Palpitations R00.2 ; Hypothyroid E03.9 ; Right foot pain M79.671 ; Functional diarrhea K59.1 and Other seasonal allergic rhinitis J30.2 [place] [address] [place] [id number] [place] [address] 58[address]- 8173 Oct, Dysthymic disorder F34.1 and Generalized anxiety disorder F41.1 [place] [address] [place] [address] Sep, [facility] [id number] [place] [address] 56306- 3337 Sep, [facility] [id number] [place] [address] 28059- 3765 Sep, [facility] [id number] [place] [address] 20168- 5299 Sep, [facility] [id number] [place] [address] 98103- 9990 Sep, [place] [address] [place] [id number] [place] [address] 22856- 5856 Sep, Dysthymic disorder F34.1 and Generalized anxiety disorder F41.1 [place] [address] [place] [id number] [place] [address] 25711- 0910 16 Sep, 2015 Asthma with acute exacerbation in adult J45.901 ; Dysuria R30.0 ; Chronic kidney disease, stage 4 (severe) N18.4 and History of anemia Z86.2 [place] [id number] [place] [address] 65420- 8190 Sep, Generalized anxiety disorder F41.1 and Dysthymic disorder F34.1 [place] [id number] [place] [address] 15662- 2110 August, Screening breast examination Z12.39 and Acute recurrent maxillary sinusitis J01.01 [place] [id number] [place] [address] 61028- 8556 August, Osteoarthritis of knees, bilateral M17.0 [place] [id number] [place] [address] 60672- 4821 August, Chronic kidney disease, stage 4 (severe) N18.4 ; Acute non- recurrent maxillary sinusitis J01.00 ; Urinary problem R39.89 ; Bowel habit changes R19.4 ; Functional diarrhea K59.1 and History of colon polyps Z86.010 [place] [id number] [address] 29 Jul, 2015 Dysthymic disorder F34.1 and Generalized anxiety disorder F41.1 [facility] [id number] [place] [address] 59433- 0599 Jul, [facility] [id number] [place] [address] 18095- 2587 Jul, Dysthymic disorder F34.1 ; Generalized anxiety disorder F41.1 and 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 [facility] [id number] [place] [address] 79320- 6131 Jul, [facility] [address] [id number] [place] [address] 45675- 9753 16 Jun, 2015 [facility] [address] [id number] [place] [address] 00981- 0917 Jun, [facility] [id number] [place] [address] 29306- 3087 May, [facility] [id number] [place] [address] 83003- 3200 May, Dysthymic disorder F34.1 and Generalized anxiety disorder F41.1 [facility] [id number] [place] [address] 90287- 2398 Apr, Kidney disease N28.9 [facility] [id number] [place] [address] 00494- 4797 Apr, Generalized anxiety disorder F41.1 and Dysthymic disorder F34.1 [facility] [id number] [place] [address] 65087- 4131 Apr, Chronic kidney disease, stage 4 (severe) N18.4 [facility] [address] [address]- 4808 Apr, Generalized anxiety disorder F41.1 ; Major depression, recurrent F33.9 and Sleep disturbance G47.9 [place] [address] [place] [id number] [place] [address] 44724- 9924 Mar, Generalized anxiety disorder F41.1 and Dysthymic disorder F34.1 [facility] [id number] [place] [address] 85988- 3514 Mar, Generalized anxiety disorder F41.1 ; Dysthymic disorder F34.1 and Insomnia G47.00 [facility] [address] [id number] [place] [address] 84361- 7526 Mar, [facility] [address] [address] [id number] [place] [address] 35261- 9103 Mar, [facility] [address] [id number] [place] [address] 24320- 4500 Mar, Osteoarthritis of knees, bilateral M17.0 [place] [id number] [place] [address] 83440- 8393 Mar, Hypertension I10 ; Hypothyroid E03.9 ; Dysthymic disorder F34.1 ; Chronic kidney disease, stage 4 (severe) N18.4 and Nausea & vomiting R11.2 [place] [address] [place] [id number] [place] [address] 17679- 0112 Mar, Generalized anxiety disorder F41.1 ; Dysthymic disorder F34.1 and Insomnia G47.00 [place] [address] [place] [id number] [place] [address] 07876- 4708 Mar, Dehydration E86.0 ; Chronic kidney disease, stage 4 (severe ) N18.4 and Nausea & vomiting R11.2 [facility] [id number] [place] [address] 88419 -0037 Mar, Gastroenteritis K52.9 [facility] [id number] [place] [address] 65776- 4764 Mar, [facility] [address] [place] [id number] [place] [address] 55301- 0283 Mar, [facility] [address] [place] [id number] [place] [address] 34300- 5218 Feb, Dysthymic disorder F34.1 and Generalized anxiety disorder F41.[address] 79730- 7022 Jan, UTI (urinary tract infection) N39.0 ; Asthma J45.909 ; Coronary artery disease involving [place] coronary artery of [place] heart, angina presence unspecified I25.10 ; Hypertension I10 ; Hypothyroid E03.9 ; Vitamin D deficiency E55.9 ; Insomnia G47.00 ; Palpitations R00.2 ; Depressed F32.9 ; Restless leg G25.81 and Anxiety F41.[address] 56096- 2623 Jan, Dysthymic disorder F34.1 and Generalized anxiety disorder F41.[address] 00618- 3570 Jan, [address] 05725- 9506 Dec, [address] 50219- 4421 Dec, Alkalosis 276.3 ; Chronic kidney disease, Stage IV (severe) 585.4 ; Hyperpotassemia 276.7 ; Secondary hyperparathyroidism, renal 588.81 ; Proteinuria 791.0 ; Unspecified vitamin D deficiency 268.9 ; Anemia in chronic kidney disease 285.21 ; Other and unspecified hyperlipidemia 272.4 ; Hypertension, essential, benign 401.1 and Chronic kidney disease (CKD), stage III (moderate) 585.[address] 72440- 6018 Dec, [address] 63054- 5949 Dec, Depressive disorder, not elsewhere classified 311 and Generalized anxiety disorder 300.[address] 02995- 9447 Dec, [facility] [id number] [place] [address] 36421- 1301 Dec, [facility] [address] [place] [id number] [place] [address] 09887- 1578 Nov, Depressive disorder, not elsewhere classified 311 and Generalized anxiety disorder 300.02 [facility] [address] [id number] [place] [address] 53156- 4667 Nov, Arthritis of both knees 716.96 [place] [address] [place] [id number] [place] [address] 69721- 6126 Nov, PAF (paroxysmal atrial fibrillation) 427.31 ; CAD (coronary artery disease) 414.00 ; Chest pain 786.50 and Chronic kidney disease (CKD) stage G4/A1, severely decreased glomerular filtration rate (GFR) between 15-29 mL/min/1.73 square meter and albuminuria creatinine ratio less than 30 mg/g 585.4 [place] [address] [place] [id number] [place] [address] 25287- 6241 Oct, Coronary atherosclerosis of unspecified type of vessel, [place] or graft 414.00 ; Chronic kidney disease, Stage IV (severe) 585.4 ; Hypertension 401.9 and Edema 782.3 [place] [address] [place] [id number] [place] [address] 48566- 0092 Oct, Depressive disorder, not elsewhere classified 311 and Generalized anxiety disorder 300.02 [facility] [address] [id number] [place] [address] 71234- 7479 Oct, Depressive disorder, not elsewhere classified 311 and Generalized anxiety disorder 300.02 [facility] [address] [place] [id number] [place] [address] 61654- 7248 Oct, [facility] [address] [place] [id number] [place] [address] 09289- 6514 Oct, [facility] [id number] [place] [address] 21420- 1185 Sep, [facility] [address] [id number] [place] [address] 46483- 7497 Sep, Chronic kidney disease, Stage IV (severe) 585.4 [facility] [address] [place] [id number] [place] [address] 13141- 3662 Sep, [facility] [address] [place] [id number] [place] [address] 59040- 4939 Sep, Coronary atherosclerosis of unspecified type of vessel, [place] or graft 414.00 ; Hypertension 401.9 ; Edema 782.3 and Hypothyroidism 244.9 [facility] [address] [place] [id number] [place] [address] 24422- 8129 Sep, Coronary atherosclerosis of unspecified type of vessel, [place] or graft 414.00 ; Hypertension 401.9 ; Fibromyalgia 729.1 ; Edema 782.3 ; Hypothyroidism 244.9 and Anemia 285.9 [place] [address] [place] [id number] [place] [address] 69600- 1659 Sep, Anxiety disorder, unspecified 300.00 and Depressive disorder , not elsewhere classified 311 [facility] [address] [id number] [place] [address] 16844- 7747 Sep, [facility] [address] [place] [id number] [place] [address] 48599- 7229 August, Generalized anxiety disorder 300.02 [facility] [address] [place] [id number] [place] [address] 61957- 1207 August, Closed fracture of lateral malleolus 824.2 [facility] [address] [place] [id number] [place] [address] 53327- 8217 Jul, [facility] [address] [place] [id number] [place] [address] 15175- 9289 Jul, [facility] [id number] [place] [address] 51234- 8110 Jun, [facility] [address] [place] [id number] [place] [address] 06206- 2071 Jun, [facility] [place] [facility] [address] [id number] [place] [address]- 1751 13 Jun, 2014 [facility] [place] [facility] [address] [id number] [place] [address]- 2353 13 Jun, 2014 [facility] [place] [facility] [address] [id number] [place] [address]- 1618 Jun, 2014 [facility] [place] [facility] [address] [id number] [place] [address]- 2252 02 Jun, 2014 [facility] [place] [facility] [address] [id number] [place] [address]- 7179 May, 2014 [facility] [place] [facility] [address] [id number] [place] [address]- 2402 19 May, 2014 [facility] [place] [facility] [address] [facility] [id number] [place] [address]- 3178 18 May, 2014 [facility] [place] [facility] [address] [id number] [place] [address]- 6967 18 May, 2014 [facility] [place] [facility] [address] [id number] [place] [address]- 8401 16 May, 2014 [facility] [place] [facility] [address] [facility] [id number] [place] [address]- 2174 16 May, 2014 [facility] [place] [facility] [address] [facility] [id number] [place] [address]- 2145 13 May, 2014 [facility] [place] [facility] [address] [id number] [place] [address]- 3460 13 May, 2014 [facility] [place] [facility] [address] [id number] [place] [address]- 2541 10 May, 2014 [facility] [place] [facility] [address] [id number] [place] [address]- 2160 10 May, 2014 [facility] [place] [facility] [address] [id number] [place] [address]- 9839 Apr, [facility] [place] [facility] [address] [id number] [place] [address]- 5188 Apr, [facility] [place] [facility] [address] [id number] [place] [address]- 7796 Mar, [facility] [place] [facility] [address] [id number] [place] [address]- 1619 Mar, [facility] [place] [facility] [address] [id number] [place] [address]- 7130 Mar, [facility] [place] [facility] [address] [id number] [place] [address]- 1872 Mar, [facility] [place] [facility] [address] [id number] [place] [address]- 6087 Mar, [facility] [place] [facility] [address] [id number] [place] [address]- 5598 Mar, [facility] [place] [facility] [address] [id number] [place] [address]- 7283 Mar, [facility] [place] [facility] [address] [id number] [place] [address]- 2634 Feb, [facility] [place] [facility] [address] [id number] [place] [address]- 9861 Feb, [facility] [place] [facility] [address] [id number] [place] [address]- 1838 Feb, [facility] [place] [facility] [address] [id number] [place] [address]- 1189 Jan, [facility] [place] [facility] [address] [id number] [address]- 8363 Jan, [facility] [place] [facility] [address] [id number] [place] [address]- 6978 Jan, [facility] [place] [facility] [address] [id number] [place] [address]- 2831 Jan, [facility] [place] [facility] [address] [id number] [address]- 1311 Jan, [facility] [place] [facility] [address] [id number] [place] [address]- 1753 Jan, [facility] [place] [facility] [address] [id number] [place] [address]- 8943 Jan, [facility] [place] [facility] [address] [id number] [place] [address]- 4601 Jan, [facility] [place] [facility] [address] [id number] [place] [address]- 6323 Jan, [facility] [place] [facility] [address] [id number] [place] [address]- 4740 Jan, [facility] [place] [facility] [address] [id number] [place] [address]- 5982 Nov, [facility] [place] [facility] [address] [id number] [place] [address]- 6525 Nov, [facility] [place] [facility] [address] [id number] [place] [address]- 4533 Nov, [facility] [place] [facility] [address] [id number] [place] [address]- 9940 Oct, [facility] [place] [facility] [address] [id number] [place] [address]- 4237 Oct, [facility] [place] [facility] [address] [id number] [place] [address]- 5987 Oct, [facility] [place] [facility] [address] [id number] [place] [address]- 4197 Oct, [facility] [place] [facility] [address] [id number] [place] [address]- 5502 Oct, [facility] [place] [facility] [address] [id number] [place] [address]- 7756 Oct, [facility] [place] [facility] [address] [id number] [place] [address]- 3094 Oct, [facility] [place] [facility] [address] [id number] [place] [address]- 1470 Oct, [facility] [place] [facility] [address] [id number] [place] [address]- 5410 Oct, [facility] [place] [facility] [address] [id number] [place] [address]- 7240 Sep, [facility] [place] [facility] [address] [id number] [place] [address]- 8914 Sep, [facility] [place] [facility] [address] [id number] [place] [address]- 4095 Sep, [facility] [place] [facility] [address] [id number] [place] [address]- 1347 Sep, [facility] [place] [facility] [address] [id number] [place] [address]- 6847 Sep, [facility] [place] [facility] [address] [id number] [place] [address]- 2252 Sep, [facility] [place] [facility] [address] [id number] [place] [address]- 1556 Sep, [facility] [place] [facility] [address] [id number] [place] [address]- 1674 Sep, [facility] [place] [facility] [address] [id number] [place] [address]- 7498 Sep, [facility] [place] [facility] [address] [id number] [place] [address]- 7785 August, [facility] [place] [facility] [address] [id number] [place] [address]- 8362 August, [facility] [place] [facility] [address] [id number] [place] [address]- 8088 August, [facility] [place] [facility] [address] [id number] [place] [address]- 4843 August, [facility] [place] [facility] [address] [id number] [place] [address]- 4987 August, [facility] [place] [facility] [address] [id number] [place] [address]- 8578 August, [facility] [place] [facility] [address] [id number] [place] [address]- 2531 Jul, [facility] [place] [facility] [address] [id number] [place] [address]- 4456 Jul, [facility] [place] [facility] [address] [id number] [place] [address]- 5711 Jul, [facility] [place] [facility] [address] [id number] [place] [address]- 7390 Jul, [facility] [place] [facility] [address] [id number] [place] [address]- 1302 Jul, [facility] [place] [facility] [address] [id number] [place] [address]- 8266 Jul, [facility] [place] [facility] [address] [id number] [place] [address]- 0965 Jun, [facility] [place] [facility] [address] [id number] [place] [address]- 0314 Jun, [facility] [place] [facility] [address] [id number] [place] [address]- 4256 May, [facility] [place] [facility] [address] [id number] [place] [address]- 1664 May, [facility] [place] [facility] [address] [id number] [place] [address]- 1832 May, [facility] [place] [facility] [address] [id number] [place] [address]- 4958 May, [facility] [place] [facility] [address] [id number] [place] [address]- 3372 Apr, [facility] [place] [facility] [address] [id number] [place] [address]- 2854 Apr, [facility] [place] [facility] [address] [id number] [place] [address]- 4541 Mar, [facility] [place] [facility] [address] [id number] [place] [address]- 0143 18 Mar, 2013 [facility] [place] [facility] [address] [id number] [place] [address]- 4933 17 Mar, 2013 [facility] [place] [facility] [address] [id number] [place] 9414 17 Mar, 2013 [facility] [place] [facility] [address] [id number] [place] [address]- 3545 05 Mar, 2013 [facility] [place] [facility] [address] [id number] [place] [address]- 1367 05 Mar, 2013 [facility] [place] [facility] [address] [id number] [place] [address]- 3988 Feb, [facility] [place] [facility] [address] [id number] [place] [address]- 5706 Feb, [facility] [place] [facility] [address] [id number] [place] [address]- 2371 14 Feb, 2013 [facility] [place] [facility] [address] [id number] [place] [address]- 1274 Feb, [facility] [place] [facility] [address] [id number] [place] [address]- 6641 Feb, [facility] [place] [facility] [address] [id number] [place] [address]- 9673 Feb, [facility] [place] [facility] [address] [id number] [place] [address]- 7913 24 Jan, 2013 [facility] [place] [facility] [address] [id number] [place] [address]- 1611 24 Jan, 2013 [facility] [place] [facility] [address] [id number] [place] [address]- 2631 10 Jan, 2013 [facility] [place] [facility] [address] [id number] [place] 0911 10 Jan, 2013 [facility] [place] [facility] [address] [id number] [place] [address]- 7014 Jan, [facility] [address] [id number] [place] [address]- 9513 Jan, [facility] [place] [facility] [address] [id number] [place] [address]- 1708 Dec, [facility] [place] [facility] [address] [id number] [place] [address]- 8363 Dec, [facility] [place] [facility] [address] [id number] [place] [address]- 7653 Nov, [facility] [place] [facility] [address] [id number] [place] [address]- 2339 Nov, [facility] [place] [facility] [address] [id number] [place] [address]- 5345 Oct, [facility] [address] [id number] [place] [address]- 2606 Oct, [facility] [place] [facility] [address] [id number] [place] [address]- 9518 Oct, [facility] [place] [facility] [address] [id number] [place] [address]- 5190 Oct, [facility] [place] [facility] [address] [id number] [place] [address]- 7021 Oct, [facility] [place] [facility] [address] [id number] [place] [address]- 2166 Oct, [facility] [place] [facility] [address] [id number] [place] [address]- 8559 Sep, [facility] [place] [facility] [address] [id number] [place] [address]- 6998 Sep, [facility] [place] [facility] [address] [id number] [place] [address]- 6146 Sep, [facility] [place] [facility] [address] [id number] [place] [address]- 9349 Sep, [facility] [place] [facility] [address] [id number] [place] [address]- 1233 August, [facility] [address] [id number] [place] 1414 August, [facility] [address] [id number] [place] [address]- 3424 August, [facility] [address] [id number] [place] [address]- 4718 August, [facility] [address] [id number] [place] [address]- 5162 August, [facility] [address] [id number] [place] [address]- 9483 Jul, [facility] [address] [id number] [place] [address]- 2783 Jul, [facility] [address] [id number] [place] [address] Jul, [facility] [address] [id number] [place] [address] Jul, [facility] [address] [id number] [place] [address] Jul, [facility] [address] [id number] [place] [address] Jul, [facility] [address] [id number] [place] [address] Jul, [facility] [address] [id number] [place] [address] Jul, [facility] [address] [id number] [place] [address] Jul, [facility] [address] [id number] [place] [address] Jul, [facility] [id number] [address] [facility] [id number] [place] [id number] Jun, [facility] [address] [id number] [place] [address] Jun, [facility] [address] [id number] [place] [address] Jun, [facility] [address] [id number] [place] [address] Jun, [facility] [address] [id number] [place] [address] Jun, [facility] [address] [id number] [place] [address] May, [facility] [address] [id number] [place] [address] May, [facility] [address] [id number] [place] [address] May, [facility] [address] [id number] [place] [address] Apr, [facility] [address] [id number] [place] [address] Apr, [facility] [address] [id number] [place] [address] Apr, [facility] [address] [id number] [place] [address] Apr, [facility] [place] [facility] [address] [id number] [place] [address] Apr, [facility] [place] [facility] [address] [id number] [place] [address] Apr, [facility] [address] [id number] [place] [address] Mar, [facility] [place] [facility] [address] [id number] [place] [address] Mar, [facility] [address] [id number] [place] [address] 18 Mar, 2012 [facility] [place] [facility] [address] [id number] [place] [address] Mar, [facility] [place] [facility] [address] [id number] [place] [address] Feb, [facility] [place] [facility] [address] [id number] [place] [address] Feb, [facility] [place] [facility] [address] [id number] [place] [address] Feb, [facility] [place] [facility] [address] [id number] [place] [address] Feb, [facility] [place] [facility] [address] [id number] [place] [address] Feb, [facility] [place] [facility] [address] [id number] [place] [address] Feb, [facility] [place] [facility] [address] [id number] [place] [address] Feb, [facility] [place] [facility] [address] [id number] [place] [address] Feb, [facility] [place] [facility] [address] [facility] [id number] [place] [address] Feb, [facility] [place] [facility] [address] [id number] [place] [address] Feb, [facility] [place] [facility] [address] [id number] [place] [address] Feb, [facility] [place] [facility] [address] [id number] [place] [address] Feb, [facility] [place] [facility] [address] [id number] [place] [address] Feb, [facility] [place] [facility] [address] [id number] [place] [address] Feb, [facility] [place] [facility] [address] [id number] [place] [address] Feb, [facility] [place] [facility] [address] [id number] [place] [address] Feb, [facility] [place] [facility] [address] [id number] [place] [address] Jan, [facility] [place] [facility] [address] [id number] [place] [address] Jan, [facility] [place] [facility] [address] [id number] [place] [address] Jan, [facility] [facility] [address] [id number] [place] [address] Jan, [facility] [place] [facility] [address] [id number] [place] [address] Jan, [facility] [place] [facility] [address] [id number] [place] [address] Jan, [facility] [place] [facility] [address] [id number] [place] [address] Jan, [facility] [place] [facility] [address] [id number] [place] [address] 39[address] Jan, [facility] [place] [facility] [address] [id number] [place] [address] 365[address] Jan, [facility] [place] [facility] [address] [id number] [place] [address] Jan, [facility] [place] [facility] [address] [id number] [place] [address] 15 Jan, 2012 [facility] [address] [id number] [place] [address] Jan, [facility] [place] [facility] [address] [id number] [place] [address]60 Dec, [facility] [place] [facility] [address] [id number] [place] [address] 26 Sep, 2011 [facility] [place] [address] [id number] [place] [address]66 24 Sep, 2011 [facility] [place] [facility] [address] [id number] [place] [address] 3566 23 Sep, 2011 [facility] [place] [facility] [address] [id number] [place] [address] 2546 22 Sep, 2011 [facility] [place] [facility] [address] [id number] [place] [address] 2546 21 Sep, 2011 [facility] [place] [facility] [address] [id number] [place] [address]26 20 Sep, 2011 [facility] [place] [facility] [address] [id number] [place] [address] 6302 20 Sep, 2011 [facility] [place] [facility] [address] [id number] [place] [address] 0101 07 Sep, 2011 [facility] [place] [facility] [address] [id number] [place] [address]- [address]097 06 Sep, 2011 [facility] [place] [facility] [address] [id number] [place] [address]- 5409 06 Sep, 2011 [facility] [address] [id number] [place] [address]- [address] 05 Dec, 2011 [facility] [facility] [address] [id number] [place] [address]- [address]804 23 Nov, 2011 [facility] [place] [facility] [address] [id number] [place] [address] 9431 17 Nov, 2011 [facility] [facility] [address] [id number] [place] [address]- 1836 13 Nov, 2011 [facility] [address] [id number] [place] [address]- 3702 10 Nov, 2011 [facility] [place] [facility] [address] [id number] [place] [address]- 5377 08 Nov, 2011 [facility] [address] [id number] [place] [address]- 7985 Nov, [facility] [address] [id number] [place] [address] 1406 Nov, [facility] [address] [id number] [place] [address]16 Nov, [facility] [address] [id number] [place] [address] Oct, [facility] [address] [id number] [place] [address] Oct, [facility] [address] [id number] [place] [address] 5860 Oct, [facility] [address] [id number] [place] [address] 0649 Oct, [facility] [address] [id number] [place] [address] 8457 Oct, [facility] [address] [id number] [place] [address]- 8296 Oct, [facility] [address] [id number] [place] [address] 3469 Oct, [facility] [address] [id number] [place] [address] Sep, [facility] [address] [id number] [place] [address] Sep, [facility] [address] [id number] [place] [address] 1138 August, [facility] [address] [id number] [place] [address]- 1196 August, [facility] [address] [id number] [place] [address] 4916 August, [facility] [address] [id number] [place] [address] 5956 August, [facility] [address] [id number] [place] [address]- 2374 Jul, [facility] [address] [id number] [place] [address]- 2656 Jul, [facility] [address] [id number] [place] [address]- 6132 Jul, [facility] [address] [id number] [place] [address]- 3591 Jul, [facility] [address] [id number] [place] [address]- 3659 Jul, [facility] [address] [id number] [place] [address]- 4976 Jul, [facility] [address] [id number] [place] [address]- 1992 Jul, [facility] [address] [id number] [place] [address]- 7400 Jul, [facility] [address] [id number] [place] [address]- 9992 Jul, [facility] [address] [id number] [place] [address]- 4402 Jun, [facility] [address] [id number] [place] [address]- 3111 19 Jun, 2011 [facility] [address] [id number] [place] [address] 59[address] 15 Jun, 2011 [facility] [address] [id number] [place] [address]- 7499 14 Jun, 2011 [facility] [address] [id number] [place] [address]- 2737 12 Jun, 2011 [facility] [address] [id number] [place] [address] 8302 09 Jun, 2011 [facility] [address] [id number] [place] [address] 8701 Jun, [facility] [address] [id number] [place] [address]- 9246 May, [facility] [address] [id number] [place] [address]- 4426 May, [facility] [address] [id number] [place] [address]- 5726 May, [facility] [address] [id number] [place] [address]- 5116 May, [facility] [address] [id number] [place] [address]- 6616 May, [facility] [address] [id number] [place] [address]- 6046 Apr, [facility] [address] [id number] [place] [address]- 7821 Apr, [facility] [address] [id number] [place] [address]- 2285 Apr, [facility] [address] [id number] [place] [address]- 0169 Apr, [facility] [address] [id number] [place] [address]- 2654 Apr, [facility] [address] [id number] [place] [address]- 0856 30 Mar, 2011 [facility] [address] [id number] [place] [address] 2546 Mar, [facility] [address] [id number] [place] [address] 2546 Mar, [facility] [address] [id number] [place] [address]- 2546 Mar, [facility] [address] [id number] [place] [address] 2547 Mar, [facility] [address] [id number] [place] [address]- 5403 Mar, [facility] [address] [id number] [place] [address]- 0548 Mar, [facility] [address] [id number] [place] [address]- 3648 Feb, [facility] [address] [id number] [place] [address]- 8700 Feb, [facility] [address] [id number] [place] [address]- 1739 Feb, [facility] [address] [id number] [place] [address]- 8118 Feb, [facility] [address] [id number] [place] [address]- 6520 Jan, [facility] [address] [id number] [place] [address]- 2020 Jan, [facility] [address] [id number] [place] [address]- 6446 Jan, [facility] [address] [id number] [place] [address]- 2294 Jan, [facility] [address] [id number] [place] [address]- 5519 Nov, [facility] [address] [id number] [place] [address]- 2447 Mar, [facility] [address] [id number] [place] [address]- 3347 Mar, [facility] [address] [id number] [place] [address]- 5595 Mar, [facility] [address] [id number] [place] [address]- 1215 Mar, [facility] [address] [id number] [place] [address] 2546 Mar, [facility] [address] [facility] [id number] [place] [address]- 2546 Mar, [facility] [address] [facility] [id number] [place] [address]- 2546 Feb, [facility] [address] [facility] [id number] [place] [address]- 2546 Feb, [facility] [address] [facility] [id number] [place] [address]- 4767 Jan, [facility] [address] [facility] [id number] [place] [address]- 4520 Jan, [facility] [address] [facility] [id number] [place] [address]- 8262 Jan, IMMUNIZATIONS No Known Immunizations SOCIAL HISTORY Never Assessed REASON FOR VISIT requesting return call PLAN OF CARE VITAL SIGNS [...]
--- OUTSIDE RECORDS SUMMARY | 2018-05-29 08:52 | XMS REPORT ---
Author Author ISABEL MAE [facility] Address [address] [place] [address] Care Team Providers [facility] Machine Feeder Name Role Phone ISABEL MAE Unavailable PROBLEMS Type Condition ICD9-CM Code OCX03-SG Code Onset Dates Condition Status SNOMED Code Problem Long-term use of high-risk medication Z79.899 Active 126081501 Problem Abnormal chest CT R93.8 Active 077845256 Problem Generalized anxiety disorder F41.1 Active 82924127 Problem Low back pain M54.5 Active 963660894 Problem Dysthymic disorder F34.1 Active 94168095 Problem Depressed F32.9 Active 31665398 Problem Coronary artery disease involving chalk[place] coronary artery of [place] heart, angina presence unspecified I25.10 Active 2565297770863 Problem Hypothyroid E03.9 Active 39988927 Problem Insomnia G47.00 Active 137477293 Problem Vitamin D deficiency E55.9 Active 01000368 Problem Asthma J45.909 Active 077203368 Problem Chronic kidney disease, unspecified N18.9 Active 456085059 Problem Palpitations R00.2 Active 82465845 Problem Anemia in chronic kidney disease D63.1 Active 479863687501811 Problem Primary osteoarthritis of left knee M17.12 Active 820578438 Problem Bipolar disorder, current episode manic without psychotic features F31.10 Active 092180871 Problem Restless leg syndrome G25.81 Active 59961719 Problem Seasonal allergic rhinitis due to pollen J30.1 Active 68753049 Problem Functional diarrhea K59.1 Active 09919184 Problem Chronic kidney disease, stage 4 (severe) N18.4 Active 212773411 Problem Restless leg G25.81 Active 97466658 Problem Mood disorder F39 Active 33606303 Problem Degenerative tear of medial meniscus of left knee M23.204 Active 433920997 Problem Body mass index (BMI) of 40.0-44.9 in adult Z68.41 Active 485132094 Problem Stage 3 chronic kidney disease N18.3 Active 378633247 Problem Asthma with acute exacerbation in adult J45.901 Active 231036664 Problem Other seasonal allergic rhinitis J30.2 Active 330321320 Problem History of colon polyps Z86.010 Active 186533347 Problem History of anemia Z86.2 Active 144349409 Problem Fibromyalgia M79.7 Active 534910123 Problem Essential (primary) hypertension I10 Active 61879838 Problem Hypokalemia E87.6 Active 37207291 Problem Mixed stress and urge urinary incontinence N39.46 Active 888654637 ALLERGIES No Known Allergies ENCOUNTERS Encounter Location Date Diagnosis [place] [address] [address] Nov, [place] [address] 04[address]- 1892 Nov, Complicated UTI (urinary tract infection) N39.0 [place] [address] 05935- 4389 Oct, [place] [address] 72344- 8208 Oct, Generalized anxiety disorder F41.1 and Major depressive disorder, recurrent episode with anxious distress F33.9 [place] [address] [place] [id number] [place] [address] 13241- 0828 Oct, [place] [address] 61694- 4305 Oct, Fibromyalgia M79.7 [place] [address] 08678- 9623 Sep, Restless leg syndrome G25.81 and Restless leg G25.81 [place] [address] 70599- 3214 Sep, [place] [address] 44918- 9070 Sep, Seasonal allergic rhinitis due to pollen J30.1 ; Screening for breast cancer Z12.31 ; Chest pain at rest R07.9 ; Restless leg syndrome G25.81 ; Essential (primary) hypertension I10 and Depressed F32.9 [facility] [address] 06[address]- [address]99 August, Fibromyalgia M79.7 [facility] [address] [place] [id number] [place] [address] 73631- 3663 August, [facility] [address] 55[address]- 3484 August, [facility] [address] [place] [id number] [place] [address] 98452- 4445 August, Abnormal chest CT R93.8 [place] [address] 80714- 2993 August, Generalized anxiety disorder F41.1 and Major depressive disorder, recurrent episode with anxious distress F33.9 [place] [address] 29934- 9494 August, Ab[address] chest [address] R93.8 [facility] [address] [place] [id number] [place] [address] 43771- 5200 Jul, [facility] [address] [place] [id number] [place] [address] 33383- 9360 Jul, Chronic kidney disease, stage 4 (severe) N18.4 [facility] [address] [place] [id number] [place] [address] 55456- 4421 Jul, [facility] [address] [place] [id number] [place] [address] 89210- 8663 Jul, Restless leg G25.81 ; Mixed stress and urge urinary incontinence N39.46 and Fibromyalgia M79.7 [facility] [address] [place] [id number] [place] [address] 31095- 5310 Jul, Chronic kidney disease, stage 4 (severe) N18.4 [facility] [address] [place] [id number] [place] [address] 70129- 8651 Jun, Orthostatic hypotension I95.1 ; Chronic kidney disease, stage 4 (severe) N18.4 ; Chest wall discomfort R07.89 and Body mass index (BMI) of 40.0-44.9 in adult Z68.41 [facility] [address] [place] [id number] [place] [address] 11954- 5572 Jun, [facility] [address] [place] [id number] [place] [address] 59944- 8935 Jun, Orthostatic hypotension I95.1 [facility] [address] [place] [id number] [place] [address] 09441- 2594 Jun, [facility] [address] 26[address] -1263 Jun, Orthostatic hypotension I95.1 ; Dysuria R30.0 and Acute cystitis without hematuria N30.00 [facility] [address] [place] [id number] [place] [address] 62750- 9665 Jun, [facility] [address] [place] [id number] [place] [address] 39869- 3478 Jun, Chronic kidney disease, stage 4 (severe) N18.4 [place] [address] [place] [id number] [place] [address] 42709- 8058 Jun, Fibromyalgia M79.7 [facility] [address] [place] [id number] [place] [address] 28249- 8099 Jun, [facility] [address] [place] [id number] [place] [address] 36971- 2853 Jun, [facility] [address] [place] [id number] [place] [address] 03037- [address] May, Ab[address] R93.8 and Stage 3 chronic kidney disease N18.3 [facility] [address] [place] [id number] [place] [address] 60640- 7534 May, Chronic kidney disease, stage 4 (severe) N18.4 [facility] [address] [place] [address]- 6996 May, Chronic kidney disease, stage 4 (severe) N18.4 [facility] [address] [place] [id number] [place] [address] 96981- [address] May, Ab[address] R93.8 [facility] [address] [place] [id number] [place] [address] 80045- 6654 May, [facility] [address] [place] [id number] [place] [address] 29911- 4558 May, [facility] [address] [place] [id number] [place] [address] 76027- 4779 May, Generalized anxiety disorder F41.1 and Major depressive disorder, recurrent episode with anxious distress F33.9 [place] [address] [place] [id number] [place] [address] 27876- 2783 May, Mood disorder F39 [place] [address] [place] [id number] [place] [address] 50342- 3807 Apr, [facility] [address] [place] [id number] [place] [address] 20422- 1881 Apr, Infected skin lesion L08.9 and Muscle strain of right shoulder region, initial encounter S46.911A [place] [address] [place] [address] 97453- 4310 Apr, Generalized anxiety disorder F41.1 and Major depressive disorder, recurrent episode with anxious distress F33.9 [facility] [address] [place] [address] 32253- 9476 Apr, [facility] [address] [place] [id number] [place] [address] 62729- 4908 Apr, Recent urinary tract infection Z87.440 and Hypothyroid E03.9 [facility] [address] [place] [address] 75911- 7566 Apr, Generalized anxiety disorder F41.1 and Major depressive disorder, recurrent episode with anxious distress F33.9 [facility] [address] [address]- 4087 Apr, Recent urinary tract infection Z87.440 [facility] [address] [place] [id number] [place] [address] 23769- 8877 28 Mar, 2017 [facility] [address] [place] [id number] [place] [address] 82903 -2483 Mar, Dysuria R30.0 ; Acute cystitis without hematuria N30.00 and BMI 40.0-44.9, adult Z68.41 [place] [address] [place] [id number] [place] [address] 21423- 6436 14 Mar, 2017 [place] [address] [place] [id number] [place] [address] 17055- 7336 Mar, [place] [address] [place] [id number] [place] [address] 95626- 2575 Mar, Generalized anxiety disorder F41.1 and Major depressive disorder, recurrent episode with anxious distress F33.9 [place] [id number] [place] [address] 73182- 8364 29 Feb, 2017 Conjunctivitis, bacterial H10.9 [place] [address] [place] [address] 52651- 5994 27 Feb, 2017 [facility] [id number] [place] [address] 18953 -2657 15 Feb, 2017 Conjunctivitis, bacterial H10.9 [facility] [address] [address]- 2542 15 Feb, 2017 [facility] [address] [place] [address] 42053 -7825 10 Feb, 2017 Dysuria R30.0 ; Acute cystitis N30.00 and BMI 40.0-44.9, adult Z68.41 [facility] [address] [address]- 0938 08 Feb, 2017 [facility] [address] [place] [address] 17040- 8412 Feb, Generalized anxiety disorder F41.1 and Major depressive disorder, recurrent episode with anxious distress F33.9 [place] [address] [place] [id number] [place] [address] 21232- 0866 Feb, Mood disorder F39 and BMI 40.0-44.9, adult Z68.41 [place] [id number] [place] [address] 09934- 6259 Jan, [place] [address] [place] [id number] [place] [address] 06880- 3016 Jan, [place] [id number] [place] [address] 23695- 0744 Jan, Hypothyroid E03.9 [place] [id number] [place] [address] 83858- 4615 Jan, [place] [id number] [place] [address] 28836- 6434 Jan, Chronic kidney disease, unspecified N18.9 ; Hypokalemia E87.6 ; Essential (primary) hypertension I10 ; Fibromyalgia M79.7 ; Coronary artery disease involving [place] coronary artery of [place] heart, angina presence unspecified I25.10 ; Hypothyroid E03.9 and Encounter for immunization Z23 [address] [place] [address] 74220- 8444 Jan, Hypothyroid E03.9 [place] [address] [place] [id number] [place] [address] 63576- 6014 Jan, [address] [place] [address] 01720- 4011 Dec, Vitamin D deficiency E55.9 [address] [place] [address] 67663- 6163 Dec, Primary osteoarthritis of left knee M17.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 [place] [id number] [place] [address] 83377- 2158 19 Dec, 2016 Fibromyalgia M79.7 [facility] [address] [place] [id number] [place] [address] 08894- 8817 18 Dec, 2016 Mood disorder F39 [facility] [address] [place] [id number] [place] [address] 15056- 7963 13 Dec, 2016 [facility] [address] [place] [id number] [place] [address] 82567- 3702 13 Dec, 2016 Generalized anxiety disorder F41.1 and Major depressive disorder, recurrent episode with anxious distress F33.9 [facility] [address] [place] [id number] [place] [address] 23184- 9639 11 Dec, 2016 [facility] [address] [place] [id number] [place] [address] 59182- 2303 08 Dec, 2016 Streptococcal meningitis G00.2 [facility] [address] [place] [id number] [place] [address] 77420- 7189 07 Dec, 2016 Streptococcal meningitis G00.2 [facility] [address] [place] [address] 40471- 2879 07 Dec, 2016 [facility] [address] [place] [address] 98534- 6642 06 Dec, 2016 Streptococcal meningitis G00.2 [facility] [address] [place] [address] 83400- 7471 06 Dec, 2016 [facility] [address] [place] [address] 82734- 0500 06 Dec, 2016 Major depressive disorder, recurrent episode with anxious distress F33.9 [facility] [address] [place] [id number] [place] [address] 81126- 1872 Nov, Fever, unspecified fever cause R50.9 [facility] [address] [place] [address] 71132- 5529 Nov, [facility] [address] [place] [id number] [place] [address] 84868- 9908 Nov, Hypothyroid E03.9 [facility] [address] [place] [address] 81342- 4701 Nov, Generalized anxiety disorder F41.1 and Major depressive disorder, recurrent episode with anxious distress F33.9 [facility] [address] [place] [id number] [place] [address] 69494- 9408 Nov, [facility] [address] [place] [id number] [place] [address] [id number] Oct, Dental examination Z01.20 [facility] [address] [place] [id number] [place] [address] 28641- 4563 Oct, Generalized anxiety disorder F41.1 and Major depressive disorder, recurrent episode with anxious distress F33.9 [facility] [address] [place] [id number] [place] [address] 19058- 8852 Oct, Chronic kidney disease, stage 4 (severe) N18.4 [facility] [address] [place] [id number] [place] [address] 26222- 1998 Oct, [facility] [address] [place] [id number] [place] [address] 92728- 4774 Oct, Fibromyalgia M79.7 [facility] [address] [place] [id number] [place] [address] 30793- 1308 Oct, [facility] [address] [place] [id number] [place] [address] 96370- 8927 Oct, Generalized anxiety disorder F41.1 ; Major depressive disorder, recurrent episode with anxious distress F33.9 and Bipolar disorder, current episode manic without psychotic features F31.10 [facility] [address] [place] [id number] [place] [address] 60718- 7313 Sep, [facility] [address] [place] [id number] [place] [address] 09167- 0240 Sep, [facility] [address] [place] [id number] [place] [address] 02927- 1682 Sep, Vitamin D deficiency E55.9 [place] [id number] [place] [address] 52476- 5599 14 Sep, 2016 Vitamin D deficiency E55.9 [place] [address] [place] [address] 98055- 5339 Sep, [place] [address] [place] [id number] [place] [address] 61355- 2073 Sep, Chronic kidney disease, stage 4 (severe) N18.4 ; Hypothyroid E03.9 ; Restless leg G25.81 ; Fibromyalgia M79.7 ; Essential ( primary) hypertension I10 ; Vitamin D deficiency E55.9 ; Dyspepsia R10.13 ; Anemia in chronic kidney disease D63.1 ; Chronic kidney disease, unspecified N18.9 ; Coronary artery disease involving [place] coronary artery of [place] heart , angina presence unspecified I25.10 ; Screening breast examination Z12.39 and Low back pain M54.5 [place] [address] [place] [id number] [place] [address] 75543- 5440 August, Generalized anxiety disorder F41.1 and Major depressive disorder, recurrent episode with anxious distress F33.9 [place] [address] [place] [id number] [place] [address] 36806- 3039 August, Generalized anxiety disorder F41.1 and Major depressive disorder, recurrent episode with anxious distress F33.9 [place] [address] [place] [address] 87611- 0813 August, Fibromyalgia M79.7 [place] [address] [place] [id number] [place] [address] 70547- 6052 Jul, Generalized anxiety disorder F41.1 and Major depressive disorder, recurrent episode with anxious distress F33.9 [place] [address] [place] [id number] [place] [address] 36848- 4022 Jul, Fibromyalgia M79.7 [place] [address] [place] [id number] [place] [address] 69193- 6173 Jul, Generalized anxiety disorder F41.1 [place] [address] [place] [address] 42826- 3573 May, [place] [address] [place] [id number] [place] [address] 71447- 1059 May, Hypothyroid E03.9 [place] [address] [place] [id number] [place] [address] 28384- 8876 May, Chronic kidney disease, stage 4 (severe) N18.4 ; Hypothyroid E03.9 ; Restless leg G25.81 ; Fibromyalgia M79.7 ; Essential ( primary) hypertension I10 ; Vitamin D deficiency E55.9 ; Dyspepsia R10.13 ; Acute non-recurrent maxillary sinusitis J01.00 ; Anemia in chronic kidney disease D63.1 ; Chronic kidney disease, unspecified N18.9 and Coronary artery disease involving [place] coronary artery of [place] heart, angina presence unspecified I25.10 [place] [address] [place] [id number] [place] [address] 37252- 2756 May, Vitamin D deficiency, unspecified E55.9 [place] [address] [place] [id number] [place] [address] 68636- 2730 May, Generalized anxiety disorder F41.1 and Major depressive disorder, recurrent episode with anxious distress F33.9 [place] [address] [place] [id number] [place] [address] 67697- 2877 Apr, Pain in right knee M25.561 and Pain in left knee M25.562 [place] [address] [place] [id number] [place] [address] 80699- 2400 Apr, [place] [address] [place] [id number] [place] [address] 44053- 4438 Apr, [place] [address] [place] [id number] [place] [address] 24612- 3467 Apr, [place] [id number] [place] [address] 67886- 3818 Mar, Generalized anxiety disorder F41.1 and Major depressive disorder, recurrent episode with anxious distress F33.9 [facility] [address], [place] [address]- 9987 Mar, Generalized anxiety disorder F41.1 and Major depressive disorder, recurrent episode with anxious distress F33.9 [place] [address] [place] [id number] [place] [address] 64515- 0904 Mar, [facility] [address] [place] [id number] [place] [address] 27990- 9642 Mar, [facility] [address] [place] [id number] [place] [address] 72673- 8811 Mar, [place] [address] [place] [id number] [place] [address] 93439- 2518 Mar, Asthma J45.909 and Fibromyalgia M79.7 [place] [address] [place] [id number] [place] [address] 24984- 3316 Mar, Chronic kidney disease, stage 4 (severe) N18.4 ; Vitamin D deficiency E55.9 and Essential (primary) hypertension I10 [place] [address] [place] [id number] [place] [address] 81338- 7847 Feb, [place] [address] [place] [id number] [place] [address] 58226- 7894 Feb, Dysuria R30.0 ; Mixed stress and urge urinary incontinence N39.46 ; Fibromyalgia M79.7 and Chronic kidney disease, stage IV (severe) N18.4 [place] [address] [place] [address] 64816- 8253 Feb, Chronic kidney disease, stage 4 (severe) N18.4 [place] [address] [place] [id number] [place] [address] 93830- 9557 Feb, Chronic kidney disease, stage 4 (severe) N18.4 [place] [address] [place] [address] 99356- 0259 Feb, [place] [address] [place] [id number] [place] [address] 30509- 6513 Feb, Vitamin D deficiency, unspecified E55.9 [place] [address] 76077- 7548 Jan, [place] [address] [place] [id number] [place] [address] 96821- 3566 Jan, [place] [address] 85480- 3406 Dec, [place] [address] 09693- 7019 Dec, Chronic kidney disease, stage 4 (severe) N18.4 [place] [address] 00105- 7570 Dec, Dysthymic disorder F34.1 and Generalized anxiety disorder F41.1 [place] [address] 50370- 0673 Dec, [place] [address] [place] [id number] [place] [address] 73029- 9247 Dec, [place] [address] [place] [id number] [place] [address] 96579- 7791 Dec, Dysthymic disorder F34.1 and Generalized anxiety disorder F41.1 [place] [address] [place] [id number] [place] [address] 65765- 8815 Dec, Dysuria R30.0 ; Chronic kidney disease, stage 4 (severe) N18.4 ; Hypertension I10 ; Dyspepsia R10.13 ; Yeast dermatitis B37.2 ; Palpitations R00.2 ; Hypothyroid E03.9 ; Functional diarrhea K59.1 and Other seasonal allergic rhinitis J30.2 [facility] [id number] [place] [address] 65616 -2365 Dec, [facility] [id number] [place] [address] 09419 -1452 Nov, Dysuria R30.0 and Stress incontinence N39.3 [place] [address] [place] [id number] [place] [address] 80727- 1842 Nov, [place] [address] [place] [id number] [place] [address] 60485- 5216 Nov, [place] [address] [place] [id number] [place] [address] 45408- 5953 Nov, Osteoarthritis of knees, bilateral M17.0 [place] [address] 67033- 5721 Nov, Dysthymic disorder F34.1 and Generalized anxiety disorder F41.1 [place] [address] 29385- 6212 Nov, [place] [address] 24681- 3362 Nov, [place] [address] 57899- 2905 Nov, Urgency of urination R39.15 [place] [address] 08061- 5450 Nov, [place] [address] [place] [id number] [place] [address]- [address] Nov, Chronic kidney disease, stage 4 (severe) N18.4 [place] [address] [place] [id number] [place] [address]73- 3672 Oct, Hypertension I10 ; Coronary artery disease involving [place] coronary artery of [place] heart, angina presence unspecified I25.10 ; Palpitations R00.2 ; Hypothyroid E03.9 ; Right foot pain M79.671 ; Functional diarrhea K59.1 and Other seasonal allergic rhinitis J30.2 [place] [address] [place] [id number] [place] [address]- 1240 Oct, Dysthymic disorder F34.1 and Generalized anxiety disorder F41.1 [place] [address] [place] [address] [address] Sep, [facility] [id number] [place] [address]- [address] Sep, [facility] [id number] [place] [address] 59767- [address]27 Sep, [facility] [id number] [place] [address] 19471- 5934 Sep, [facility] [id number] [place] [address] 66648- [address]233 Sep, [place] [address] [place] [id number] [place] [address] 9[address]17- 1580 Sep, Dysthymic disorder F34.1 and Generalized anxiety disorder F41.1 [place] [address] [place] [id number] [place] [address] 60568- 9955 16 Sep, 2015 Asthma with acute exacerbation in adult J45.901 ; Dysuria R30.0 ; Chronic kidney disease, stage 4 (severe) N18.4 and History of anemia Z86.2 [place] [address] [place] [id number] [place] [address] 34991- 7971 Sep, Generalized anxiety disorder F41.1 and Dysthymic disorder F34.1 [place] [id number] [place] [place] [address] 64086- 9117 August, Screening breast examination Z12.39 and Acute recurrent maxillary sinusitis J01.01 [place] [id number] [place] [address] 14506- 4165 August, Osteoarthritis of knees, bilateral M17.0 [place] [id number] [place] [address] 47613- 3134 August, Chronic kidney disease, stage 4 (severe) N18.4 ; Acute non- recurrent maxillary sinusitis J01.00 ; Urinary problem R39.89 ; Bowel habit changes R19.4 ; Functional diarrhea K59.1 and History of colon polyps Z86.010 [place] [address], [place] [address] 29 Jul, 2015 Dysthymic disorder F34.1 and Generalized anxiety disorder F41.1 [facility] [id number] [place] [address] 87263- 2631 Jul, [facility] [id number] [place] [address] 08289- 3960 Jul, Dysthymic disorder F34.1 ; Generalized anxiety disorder F41.1 and residential use of drug Z79.899 [facility] [id number] [place] [address] 84663- 5293 Jul, [facility] [id number] [place] [address] 13637- 5928 16 Jun, 2015 [facility] [id number] [place] [address] 43056- 6047 Jun, [facility] [id number] [place] [address] 50533- 9809 May, [facility] [id number] [place] [address] 07062- 1056 May, Dysthymic disorder F34.1 and Generalized anxiety disorder F41.1 [facility] [id number] [place] [address] 93014- 3588 Apr, Kidney disease N28.9 [facility] [id number] [place] [address] 27702- 6124 Apr, Generalized anxiety disorder F41.1 and Dysthymic disorder F34.1 [facility] [id number] [place] [address] 46983- 4270 Apr, Chronic kidney disease, stage 4 (severe) N18.4 [facility] [address] [address] 3616 Apr, Generalized anxiety disorder F41.1 ; Major depression, recurrent F33.9 and Sleep disturbance G47.9 [place] [address] [place] [place] [id number] [place] [address] 58147- 1078 Mar, Generalized anxiety disorder F41.1 and Dysthymic disorder F34.1 [facility] [id number] [place] [address] 55218- 6508 Mar, Generalized anxiety disorder F41.1 ; Dysthymic disorder F34.1 and Insomnia G47.00 [facility] [id number] [place] [address] 89670- 7763 Mar, [facility] [id number] [place] [address] 16279- 1602 Mar, [facility] [address] 13714- 8623 Mar, Osteoarthritis of knees, bilateral M17.[address] 10336- 3721 Mar, Hypertension I10 ; Hypothyroid E03.9 ; Dysthymic disorder F34.1 ; Chronic kidney disease, stage 4 (severe) N18.4 and Nausea & vomiting R11.2 [place] [address] 58783- 2691 Mar, Generalized anxiety disorder F41.1 ; Dysthymic disorder F34.1 and Insomnia G47.00 [place] [address] [id number] [place] [address] 35299- 7726 Mar, Dehydration E86.0 ; Chronic kidney disease, stage 4 (severe ) N18.4 and Nausea & vomiting R11.2 [facility] [id number] [place] [address] 07118 -6137 Mar, Gastroenteritis K52.9 [facility] [id number] [place] [address] 23856- 0613 Mar, [facility] [id number] [place] [address] 90477- 8898 Mar, [facility] [place] [id number] [place] [address] 80668- 2840 Feb, Dysthymic disorder F34.1 and Generalized anxiety disorder F41.[address] 54841- 5407 Jan, UTI (urinary tract infection) N39.0 ; Asthma J45.909 ; Coronary artery disease involving chalky[place]ik coronary artery of chalk[place]ik heart, angina presence unspecified I25.10 ; Hypertension I10 ; Hypothyroid E03.9 ; Vitamin D deficiency E55.9 ; Insomnia G47.00 ; Palpitations R00.2 ; Depressed F32.9 ; Restless leg G25.81 and Anxiety F41.[address] 07141- 2047 Jan, Dysthymic disorder F34.1 and Generalized anxiety disorder F41.[address] 15444- 0438 Jan, [address] 54412- 1372 30 Dec, [address] 38081- 4425 Dec, Alkalosis 276.3 ; Chronic kidney disease, Stage IV (severe) 585.4 ; Hyperpotassemia 276.7 ; Secondary hyperparathyroidism, renal 588.81 ; Proteinuria 791.0 ; Unspecified vitamin D deficiency 268.9 ; Anemia in chronic kidney disease 285.21 ; Other and unspecified hyperlipidemia 272.4 ; Hypertension, essential, benign 401.1 and Chronic kidney disease (CKD), stage III (moderate) 585.[address] 16487- 1600 Dec, [address] 67006- 7683 Dec, Depressive disorder, not elsewhere classified 311 and Generalized anxiety disorder 300.[address] 90970- 7300 Dec, [facility] [id number] [place] [address] 39348- 1676 Dec, [facility] [id number] [place] [address] 39258- 9066 Nov, Depressive disorder, not elsewhere classified 311 and Generalized anxiety disorder 300.02 [facility] [id number] [place] [address] 09032- 4247 Nov, Arthritis of both knees 716.96 [facility] [id number] [place] [address] 53355- 6545 Nov, PAF (paroxysmal atrial fibrillation) 427.31 ; CAD (coronary artery disease) 414.00 ; Chest pain 786.50 and Chronic kidney disease (CKD) stage G4/A1, severely decreased glomerular filtration rate (GFR) between 15-29 mL/min/1.73 square meter and albuminuria creatinine ratio less than 30 mg/g 585.4 [place] [id number] [place] [address] 03315- 6066 Oct, Coronary atherosclerosis of unspecified type of vessel, chalk[place] or graft 414.00 ; Chronic kidney disease, Stage IV (severe) 585.4 ; Hypertension 401.9 and Edema 782.3 [place] [id number] [place] [address] 08968- 9258 Oct, Depressive disorder, not elsewhere classified 311 and Generalized anxiety disorder 300.02 [facility] [id number] [place] [address] 70630- 8440 Oct, Depressive disorder, not elsewhere classified 311 and Generalized anxiety disorder 300.02 [facility] [id number] [place] [address] 04782- 9717 Oct, [facility] [id number] [place] [address] 19346- 3290 Oct, [facility] [id number] [place] [address] 50973- 2792 Sep, [facility] [id number] [place] [address] 57773- 0635 Sep, Chronic kidney disease, Stage IV (severe) 585.4 [facility] [id number] [place] [address] 46626- 3710 Sep, [facility] [id number] [place] [address] 19897- 2705 Sep, Coronary atherosclerosis of unspecified type of vessel, chalk[place] or graft 414.00 ; Hypertension 401.9 ; Edema 782.3 and Hypothyroidism 244.9 [place] [address] [id number] [place] [address] 63898- 1111 Sep, Coronary atherosclerosis of unspecified type of vessel, chalk[place] or graft 414.00 ; Hypertension 401.9 ; Fibromyalgia 729.1 ; Edema 782.3 ; Hypothyroidism 244.9 and Anemia 285.9 [place] [address] [id number] [place] [address] 42502- 1665 Sep, Anxiety disorder, unspecified 300.00 and Depressive disorder , not elsewhere classified 311 [facility] [address] [id number] [place] [address] 85886- 5322 Sep, [place] [id number] [place] [address] 70963- 8895 August, Generalized anxiety disorder 300.02 [place] [id number] [place] [address] 09421- 8413 August, Closed fracture of lateral malleolus 824.2 [facility] [id number] [place] [address] 12040- 5422 Jul, [facility] [id number] [place] [address] 07414- 8276 Jul, [facility] [id number] [place] [address] 47842- 0637 Jun, [facility] [id number] [place] [address] 86583- 9239 Jun, [facility] [place] [facility] [address] [id number] [place] [address]- 3539 13 Jun, 2014 [facility] [place] [facility] [address] [id number] [place] [address]- 4734 Jun, 2014 [facility] [place] [facility] [address] [id number] [place] [address]- 1934 Jun, 2014 [facility] [place] [facility] [address] [id number] [place] [address]- 0588 02 Jun, 2014 [facility] [place] [facility] [address] [id number] [place] [address]- 0481 May, 2014 [facility] [place] [facility] [address] [id number] [place] [address]- 2538 May, 2014 [facility] [place] [facility] [address] [facility] [id number] [place] [address]- 2999 18 May, 2014 [facility] [place] [facility] [address] [id number] [place] [address]- 0573 18 May, 2014 [facility] [place] [facility] [address] [id number] [place] [address]- 9514 16 May, 2014 [facility] [place] [facility] [address] [facility] [id number] [place] [address]- 0522 16 May, 2014 [facility] [place] [facility] [address] [facility] [id number] [place] [address]- 4448 13 May, 2014 [facility] [place] [facility] [address] [id number] [place] [address]- 1997 13 May, 2014 [facility] [place] [facility] [address] [id number] [place] [address]- 2549 10 May, 2014 [facility] [place] [facility] [address] [id number] [place] [address]- 8066 10 May, 2014 [facility] [place] [facility] [address] [id number] [place] [address]- 0647 Apr, [facility] [place] [facility] [address] [id number] [place] [address]- 1854 Apr, [facility] [place] [facility] [address] [id number] [place] [address]- 7877 Mar, [facility] [place] [facility] [address] [id number] [place] [address]- 9013 Mar, [facility] [place] [facility] [address] [id number] [place] [address]- 9217 Mar, [facility] [place] [facility] [address] [id number] [place] [address]- 2143 Mar, [facility] [place] [facility] [address] [id number] [place] [address]- 9870 Mar, [facility] [place] [facility] [address] [id number] [place] [address]- 4872 Mar, [facility] [place] [facility] [address] [id number] [place] [address]- 3249 Mar, [facility] [place] [facility] [address] [id number] [place] [address]- 8374 Feb, [facility] [place] [facility] [address] [id number] [place] [address]- 5782 Feb, [facility] [place] [facility] [address] [id number] [place] [address]- 7835 Feb, [facility] [place] [facility] [address] [id number] [place] [address]- 0356 Jan, [facility] [place] [facility] [address] [id number] [place] [address]- 0782 Jan, [facility] [place] [facility] [address] [id number] [place] [address]- 3823 Jan, [facility] [place] [facility] [address] [id number] [place] [address]- 5782 Jan, [facility] [place] [facility] [address] [id number] [place] [address]- 6641 Jan, [facility] [place] [facility] [address] [id number] [place] [address]- 9762 Jan, [facility] [place] [facility] [address] [id number] [place] [address]- 9653 Jan, [facility] [place] [facility] [address] [id number] [place] [address]- 6776 Jan, [facility] [place] [facility] [address] [id number] [place] [address]- 4301 Jan, [facility] [place] [facility] [address] [id number] [place] [address]- 2641 Jan, [facility] [place] [facility] [address] [id number] [place] [address]- 9664 Nov, [facility] [place] [facility] [address] [id number] [place] [address]- 0328 Nov, [facility] [place] [facility] [address] [id number] [place] [address]- 9616 Nov, [facility] [place] [facility] [address] [id number] [place] [address]- 4216 Oct, [facility] [place] [facility] [address] [id number] [place] [address]- 1695 Oct, [facility] [place] [facility] [address] [id number] [place] [address]- 6017 Oct, [facility] [place] [facility] [address] [id number] [place] [address]- 5174 Oct, [facility] [place] [facility] [address] [id number] [place] [address]- 4509 Oct, [facility] [place] [facility] [address] [id number] [place] [address]- 4713 Oct, [facility] [place] [facility] [address] [id number] [place] [address]- 8052 Oct, [facility] [place] [facility] [address] [id number] [place] [address]- 7210 Oct, [facility] [place] [facility] [address] [id number] [place] [address]- 0911 Oct, [facility] [place] [facility] [address] [id number] [place] [address]- 8830 Sep, [facility] [place] [facility] [address] [id number] [place] [address]- 3908 Sep, [facility] [place] [facility] [address] [id number] [place] [address]- 4108 Sep, [facility] [place] [facility] [address] [id number] [place] [address]- 8672 Sep, [facility] [place] [facility] [address] [id number] [place] [address]- 0567 Sep, [facility] [place] [facility] [address] [id number] [place] [address]- 8806 Sep, [facility] [place] [facility] [address] [id number] [place] [address]- 7762 Sep, [facility] [place] [facility] [address] [id number] [place] [address]- 6339 Sep, [facility] [place] [facility] [address] [id number] [place] [address]- 7326 Sep, [facility] [place] [facility] [address] [id number] [place] [address]- 6222 August, [facility] [place] [facility] [address] [id number] [place] [address]- 5750 August, [facility] [place] [facility] [address] [id number] [place] [address]- 8883 August, [facility] [place] [facility] [address] [id number] [place] [address]- 2664 August, [facility] [place] [facility] [address] [id number] [place] 1682 August, [facility] [place] [facility] [address] [id number] [place] [address]- 0919 August, [facility] [address] [id number] [place] [address]- 6737 Jul, [facility] [place] [facility] [address] [id number] [place] 8246 Jul, [facility] [place] [facility] [address] [id number] [place] [address]- 9882 Jul, [facility] [place] [facility] [address] [id number] [place] [address]- 6895 Jul, [facility] [place] [facility] [address] [id number] [place] [address]- 0122 Jul, [facility] [place] [facility] [address] [id number] [place] [address]- 6365 Jul, [facility] [place] [facility] [address] [id number] [place] [address]- 1313 Jun, [facility] [place] [facility] [address] [id number] [place] [address]- 7547 Jun, [facility] [place] [facility] [address] [id number] [place] [address]- 4970 May, [facility] [place] [facility] [address] [id number] [place] [address]- 5022 May, [facility] [place] [facility] [address] [id number] [place] [address]- 4512 May, [facility] [place] [facility] [address] [id number] [place] [address]- 5550 May, [facility] [place] [facility] [address] [id number] [place] [address]- 8033 Apr, [facility] [place] [facility] [address] [id number] [place] [address]- 7896 Apr, [facility] [place] [facility] [address] [id number] [place] [address]- 6069 Mar, [facility] [place] [facility] [address] [id number] [place] [address]- 8600 18 Mar, 2013 [facility] [place] [facility] [address] [id number] [place] [address]- 8152 17 Mar, 2013 [facility] [place] [facility] [address] [id number] [place] [address]- 9624 17 Mar, 2013 [facility] [place] [facility] [address] [id number] [place] [address]- 4550 05 Mar, 2013 [facility] [place] [facility] [address] [id number] [place] [address]- 7377 Mar, [facility] [place] [facility] [address] [id number] [place] [address]- 0576 Feb, [facility] [place] [facility] [address] [id number] [place] [address]- 7957 Feb, [facility] [place] [facility] [address] [id number], [place] [address]- 9985 14 Feb, 2013 [facility] [place] [facility] [address] [id number] [place] [address]- 1919 Feb, [facility] [place] [facility] [address] [id number], [place] [address]- 0462 Feb, [facility] [place] [facility] [address] [id number], [place] [address]- 3389 Feb, [facility] [place] [facility] [address] [id number], [place] [address]- 5603 24 Jan, 2013 [facility] [place] [facility] [address] [id number] [place] [address]- 9769 24 Jan, 2013 [facility] [place] [facility] [address] [id number], [place] [address]- 6618 Jan, [facility] [place] [facility] [address] [id number], [place] [address]- 2805 10 Jan, 2013 [facility] [place] [facility] [address] [id number] [place] [address]- 0079 Jan, [facility] [place] [facility] [address] [id number] [place] [address]- 6957 Jan, [facility] [place] [facility] [address] [id number] [place] [address]- 1157 Dec, [facility] [place] [facility] [address] [id number] [place] [address]- 4372 Dec, [facility] [place] [facility] [address] [id number] [place] [address]- 4963 Nov, [facility] [place] [facility] [address] [id number] [place] [address]- 2591 Nov, [facility] [place] [facility] [address] [id number] [place] [address]- 6435 Oct, [facility] [place] [facility] [address] [id number] [place] [address]- 8254 Oct, [facility] [place] [facility] [address] [id number] [place] [address]- 0753 Oct, [facility] [place] [facility] [address] [id number] [place] [address]- 9953 Oct, [facility] [place] [facility] [address] [id number] [place] [address]- 4004 Oct, [facility] [place] [facility] [address] [id number] [place] [address]- 1571 Oct, [facility] [place] [facility] [address] [id number] [place] [address]- 1400 Sep, [facility] [place] [facility] [address] [id number] [place] [address]- 9424 Sep, [facility] [place] [facility] [address] [id number] [place] [address]- 9491 Sep, [facility] [place] [facility] [address] [id number] [place] [address]- 7587 Sep, [facility] [place] [facility] [address] [id number] [place] [address]- 4092 August, [facility] [address] [id number] [place] [address]- 5885 August, [facility] [address] [id number] [place] [address]- 7358 August, [facility] [address] [id number] [place] [address]- 0706 August, [facility] [address] [id number] [place] [address]- 3869 August, [facility] [address] [id number] [place] [address]- 3588 Jul, [facility] [address] [id number] [place] [address]- 5282 Jul, [facility] [address] [id number] [place] [address]- 0867 Jul, [facility] [address] [id number] [place] [address]- 2227 Jul, [facility] [address] [id number] [place] [address]- 6070 Jul, [facility] [address] [id number] [place] [address]- 7265 Jul, [facility] [address] [id number] [place] [address]- 9964 Jul, [facility] [address] [id number] [place] [address]- 0074 Jul, [facility] [address] [id number] [place] [address] Jul, [facility] [address] [id number] [place] [address] Jul, [facility] [address] [facility] [id number] [id number] Jun, [facility] [address] [id number] [place] [address] Jun, [facility] [place] [facility] [address] [id number] [place] [address] Jun, [facility] [place] [facility] [address] [id number] [place] [address] Jun, [facility] [place] [facility] [address] [id number] [place] [address] Jun, [facility] [address] [id number] [place] [address] May, [facility] [place] [facility] [address] [id number] [place] [address] May, [facility] [place] [facility] [address] [id number] [place] [address] May, [facility] [place] [facility] [address] [id number] [place] [address] Apr, [facility] [place] [facility] [address] [id number] [place] [address] Apr, [facility] [place] [facility] [address] [id number] [place] [address] Apr, [facility] [place] [facility] [address] [id number] [place] [address] Apr, [facility] [place] [facility] [address] [id number] [place] [address] Apr, [facility] [place] [facility] [address] [id number] [place] [address] Apr, [facility] [place] [facility] [address] [id number] [place] [address] Mar, [facility] [place] [facility] [address] [id number] [place] [address] Mar, [facility] [place] [facility] [address] [id number] [place] [address] 18 Mar, 2012 [facility] [place] [facility] [address] [id number] [place] [address] Mar, [facility] [place] [facility] [address] [id number] [place] [address] Feb, [facility] [place] [facility] [address] [id number] [place] [address] Feb, [facility] [place] [facility] [address] [id number] [place] [address] Feb, [facility] [place] [facility] [address] [id number] [place] [address] Feb, [facility] [place] [facility] [address] [id number] [place] [address] Feb, [facility] [place] [facility] [address] [facility] [id number] [place] [address] Feb, [facility] [place] [facility] [address] [id number] [place] [address] Feb, [facility] [place] [facility] [address] [id number] [place] [address] Feb, [facility] [place] [facility] [address] [facility] [id number] [place] [address] Feb, [facility] [place] [facility] [address] [id number] [place] [address] Feb, [facility] [place] [facility] [address] [id number], [place] [address] Feb, [facility] [place] [facility] [address] [id number] [place] [address] Feb, [facility] [place] [facility] [address] [facility] [id number] [place] [address] Feb, [facility] [place] [facility] [address] [id number], [place] [address] Feb, [facility] [place] [facility] [address] [id number] [place] [address] Feb, [facility] [place] [facility] [address] [id number] [place] [address] Feb, [facility] [place] [facility] [address] [id number] [place] [address] Jan, [facility] [place] [facility] [address] [id number] [place] [address], [place] [address]- [address] Jan, [facility] [place] [facility] [address] [id number] [place] [address] Jan, [facility] [place] [facility] [address] [id number] [place] [address] Jan, [facility] [place] [facility] [address] [id number] [place] [address] Jan, [facility] [place] [facility] [address] [id number] [place] [address] Jan, [facility] [place] [facility] [address] [id number] [place] [address] Jan, [facility] [place] [facility] [address] [id number] [place] [address] Jan, [facility] [place] [facility] [address] [id number] [place] [address] Jan, [facility] [place] [facility] [address] [id number], [place] [address] Jan, [facility] [place] [facility] [address] [id number] [place] [address] Jan, [facility] [place] [facility] [address] [id number] [place] [address]- [address]698 Jan, [facility] [place] [facility] [address] [id number], [place] [address] Dec, [facility] [place] [facility] [address] [id number], [place] [address] 26 Sep, 2011 [facility] [place] [facility] [address] [id number] [place] [address] 24 Sep, 2011 [facility] [place] [facility] [address] [id number] [place] [address] 23 Sep, 2011 [facility] [place] [facility] [address] [id number] [place] [address]46 22 Sep, 2011 [facility] [place] [facility] [address] [id number] [place] [address] 21 Sep, 2011 [facility] [place] [facility] [address] [id number] [place] [address] 2546 20 Sep, 2011 [facility] [place] [facility] [address] [id number] [place] [address] 20 Sep, 2011 [facility] [place] [facility] [address] [id number] [place] [address] 07 Sep, 2011 [facility] [place] [facility] [address] [id number] [place] [address] 06 Sep, 2011 [facility] [place] [facility] [address] [id number] [place] [address] 2548 06 Sep, 2011 [facility] [place] [facility] [address] [id number] [place] [address] 254 05 Dec, 2011 [facility] [place] [facility] [address] [id number] [place] [address] 23 Nov, 2011 [facility] [place] [facility] [address] [id number] [place] [address] 17 Nov, 2011 [facility] [place] [facility] [address] [id number] [place] [address] 2545 13 Nov, 2011 [facility] [place] [facility] [address] [id number] [place] [address] 10 Nov, 2011 [facility] [place] [facility] [address] [id number] [place] [address] 08 Nov, 2011 [facility] [place] [facility] [address] [id number] [place] [address] Nov, [facility] [address] [id number] [place] [address] Nov, [facility] [place] [facility] [address] [id number] [place] [address] Nov, [facility] [address] [id number] [place] [address] Oct, [facility] [address] [id number] [place] [address] Oct, [facility] [address] [id number] [place] [address] Oct, [facility] [address] [id number] [place] [address] Oct, [facility] [address] [id number] [place] [address] Oct, [facility] [address] [id number] [place] [address] Oct, [facility] [address] [id number] [place] [address] Oct, [facility] [address] [id number] [place] [address] Sep, [facility] [place] [facility] [address] [id number] [place] [address] Sep, [facility] [address] [id number] [place] [address] 9[address] August, [facility] [place] [facility] [address] [id number] [place] [address] August, [facility] [place] [facility] [address] [id number] [place] [address] August, [facility] [address] [id number] [place] [address] August, [facility] [address] [id number] [place] [address] Jul, [facility] [place] [facility] [address] [id number] [place] [address] Jul, [facility] [place] [facility] [address] [id number] [place] [address] Jul, [facility] [place] [facility] [address] [id number] [place] [address] Jul, [facility] [place] [facility] [address] [id number] [place] [address] Jul, [facility] [place] [facility] [address] [id number] [place] [address] Jul, [facility] [place] [facility] [address] [id number] [place] [address] Jul, [facility] [place] [facility] [address] [id number] [place] [address] Jul, [facility] [place] [facility] [address] [id number] [place] [address] Jul, [facility] [place] [facility] [address] [id number] [place] [address] Jun, [facility] [place] [facility] [address] [id number] [place] [address]398 19 Jun, 2011 [facility] [place] [facility] [address] [id number], [place] [address] 15 Jun, 2011 [facility] [place] [facility] [address] [id number] [place] [address]99 14 Jun, 2011 [facility] [place] [facility] [address] [id number] [place] [address]- [address]678 12 Jun, 2011 [facility] [place] [facility] [address] [id number][place] [address] 09 Jun, 2011 [facility] [place] [facility] [address] [id number], [place] [address] Jun, [facility] [address] [id number] [place] [address] May, [facility] [address] [id number] [place] [address] May, [facility] [address] [id number] [place] [address] May, [facility] [place] [facility] [address] [id number] [place] [address] 2546 May, [facility] [address] [id number] [place] [address] 48[address] May, [facility] [address] [id number] [place] [address] 2512 Apr, [facility] [address] [id number] [place] [address] Apr, [facility] [address] [id number] [place] [address] 4037 Apr, [facility] [address] [id number] [place] [address] 7927 Apr, [facility] [address] [id number] [place] [address]687 Apr, [facility] [address] [id number] [place] [address] 30 Mar, 2011 [facility] [address] [id number] [place] [address] 254 Mar, [facility] [place] [facility] [address] [id number] [place] [address] 2546 Mar, [facility] [place] [facility] [address] [id number] [place] [address]- 2546 Mar, [facility] [place] [facility] [address] [id number] [place] [address] 254 Mar, [facility] [place] [facility] [address] [id number] [place] [address] 5826 Mar, [facility] [place] [facility] [address] [id number] [place] [address] 9128 Mar, [facility] [place] [facility] [address] [id number] [place] [address] Feb, [facility] [place] [facility] [address] [id number] [place] [address] Feb, [facility] [place] [facility] [address] [id number] [place] [address] 288[address] Feb, [facility] [place] [facility] [address] [id number] [place] [address] 0011 Feb, [facility] [place] [facility] [address] [id number] [place] [address] 385[address] Jan, [facility] [place] [facility] [address] [id number] [place] [address] 7710 Jan, [facility] [place] [facility] [address] [id number] [place] [address] 3[address] Jan, [facility] [place] [facility] [address] [id number] [place] [address] 0[address] Jan, [facility] [place] [facility] [address] [id number] [place] [address]- 2456 Nov, [facility] [place] [facility] [address] [id number] [place] [address] 5957 Mar, [facility] [place] [facility] [address] [id number] [place] [address]- 2988 Mar, [facility] [place] [facility] [address] [id number] [place] [address]- 0675 Mar, [facility] [place] [facility] [address] [id number] [place] [address]- 4045 Mar, [facility] [place] [facility] [address] [id number], [place] [address] Mar, [facility] [address] [facility] [id number], [place] [address] Mar, [facility] [address] [facility] [id number], [place] [address] 2546 Feb, [facility] [address] [facility] [id number], [place] [address] 2546 Feb, [facility] [address] [facility] [id number], [place] [address] Jan, [facility] [address] [facility] [id number], [place] [address] Jan, [facility] [address] [facility] [id number], [place] [address] Jan, IMMUNIZATIONS No Known Immunizations SOCIAL HISTORY Never Assessed REASON FOR VISIT Fibromyalgia. Restless leg syndrome- would like to increase Requip. Pt requesting Solifenacin for urgent urination which presented greater than 2 months ago - has difficulty making to the restroom. [facility] OF CARE Activity Details Follow Up 2-4 weeks Reason:renal function f/u VITAL SIGNS Height 63 in 2017-08-03 Weight 195.3 lbs 2017-08-03 Temperature 98.4 degrees Fahrenheit 2017-08-03 Heart Rate 80 bpm 2017-08-03 Respiratory Rate 22 2017-08-03 BMI 34.59 kg/m2 2017-08-03 Blood pressure systolic 122 mmHg 2017-08-03 Blood pressure diastolic 72 mmHg 2017-08-03 MEDICATIONS Medication Instructions Dosage Frequency Start Date End Date Duration Status Synthroid 150 MCG TAKE 1 TABLET BY MOUTH ONCE DAILY 30 Active Gemfibrozil 600 MG Orally Twice a day 1 tablet 12h 30 Active ProAir HFA 108 (90 Base) MCG/ACT 1 puff Active Topamax 100 MG Orally Twice a day 1 tablet 12h Active Aspirin 325 MG Orally Once a day 1 tablet 24h Active Cymbalta 60 MG TAKE ONE CAPSULE BY MOUTH ONCE DAILY 30 Active Vitamin D (Ergocalciferol) 33201 UNIT Orally once weekly 1 capsule Active Vitamin C 1000 MG Orally Once a day 1 tablet 24h Active Nystatin 988903 UNIT/GM Externally Twice a day 1 application to thighs as needed 12h 19 Sep, 2016 5 Active Requip 5 MG Orally Once a day 1 tablet 24h Active Tramadol HCl 50 MG Orally every 6 hrs 1 tablet as needed 6h Active Fluticasone Propionate 50 MCG/ACT USE ONE SPRAY IN EACH NOSTRIL TWICE DAILY Active VESIcare 5 mg Orally Once a day 1 tablet 24h Jul, August, 30 day(s) Active Symbicort 80-4.5 MCG/ACT INHALE TWO PUFFS BY MOUTH TWICE DAILY. 25 Active Ferrous Sulfate 325 (65 Fe) MG Orally 3 times a day 1 tablet 8h Active Oxycodone-Acetaminophen 5-325 MG/5ML Orally every 6 hrs 5 ml as needed 6h Active Pantoprazole Sodium 40 MG TAKE ONE TABLET BY MOUTH ONCE DAILY 30 Active Fiber Complete - Active Lyrica 150 MG Orally 2 times a day 1 capsule 12h Active Ipratropium [place] 0.03 % Nasally Three times a day prn drainage 1-2 sprays in each nostril as needed Active Fish Oil 1200 MG Orally Once a day at hs 1 capsule Active Toprol XL 50 mg 1 tablet 24h Active Nystatin 455904 UNIT/ML Mouth/Throat Four times a day 4 ml 6h Active RESULTS No Results PROCEDURES Procedure Date Ordered Result Body Site [facility] VISIT ESTABLISHED PATIENT August 03, 2017 INSTRUCTIONS MEDICATIONS ADMINISTERED No Known Medications [...] 2007 Surgical History Bladder surgery [facility] 03/2016 Surgical History Neurotransmitter placed 10/2017 Hospitalization History Surgeries Only Hospitalization History bacterial meningitis December 2016 Hospitalization History [facility] psych for SI 1988 Hospitalization History [facility]-Altered mental status 05/2017
[2018-05-29] MEDS ORDERED: MIDAZOLAM 5 MG/5 ML (VERSED) VIAL ONE (08:53)
[2018-05-29] MEDS ORDERED: fentaNYL INJECTION 100 MCG/2 ML AMP ONE (08:53)
--- OUTSIDE RECORDS SUMMARY | 2018-05-29 08:53 | XMS REPORT ---
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 Name Role Phone ISABEL MAE Unavailable PROBLEMS Type Condition ICD9-CM Code XEH71-SR Code Onset Dates Condition Status SNOMED Code Problem Long-term use of high-risk medication Z79.899 Active 041503511 Problem Abnormal chest CT R93.8 Active 586619780 Problem Generalized anxiety disorder F41.1 Active 17445508 Problem Low back pain M54.5 Active 843215740 Problem Dysthymic disorder F34.1 Active 30418231 Problem Depressed F32.9 Active 77171509 Problem Coronary artery disease involving tolowa dee-ni' coronary artery of tolowa dee-ni' heart, angina presence unspecified I25.10 Active 3963277487685 Problem Hypothyroid E03.9 Active 92011783 Problem Insomnia G47.00 Active 434505198 Problem Vitamin D deficiency E55.9 Active 24017911 Problem Asthma J45.909 Active 087109041 Problem Chronic kidney disease, unspecified N18.9 Active 990691704 Problem Palpitations R00.2 Active 83575832 Problem Anemia in chronic kidney disease D63.1 Active 030903252386804 Problem Primary osteoarthritis of left knee M17.12 Active 267929826 Problem Bipolar disorder, current episode manic without psychotic features F31.10 Active 846297011 Problem Restless leg syndrome G25.81 Active 73614396 Problem Seasonal allergic rhinitis due to pollen J30.1 Active 60250189 Problem Functional 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 Active 97834514 Problem Chronic kidney disease, stage 4 (severe) N18.4 Active 393815505 Problem Restless leg G25.81 Active 34573165 Problem Mood disorder F39 Active 56787809 Problem Degenerative tear of medial meniscus of left knee M23.204 Active 276616428 Problem Body mass index (BMI) of 40.0-44.9 in adult Z68.41 Active 319858135 Problem Stage 3 chronic kidney disease N18.3 Active 380881267 Problem Asthma with acute exacerbation in adult J45.901 Active 605064251 Problem Other seasonal allergic rhinitis J30.2 Active 517096821 Problem History of colon polyps Z86.010 Active 976190860 Problem History of anemia Z86.2 Active 759939616 Problem Fibromyalgia M79.7 Active 653892673 Problem Essential (primary) hypertension I10 Active 34069756 Problem Hypokalemia E87.6 Active 69199531 Problem Mixed stress and urge urinary incontinence N39.46 Active 959980300 ALLERGIES No Information ENCOUNTERS Encounter Location Date Diagnosis [place] [address] [address]2 Nov, [place] [address] 60317- 6782 Oct, [place] [address] 97342- 4095 Oct, Generalized anxiety disorder F41.1 and Major depressive disorder, recurrent episode with anxious distress F33.9 [place] [address] [place] [id number] [place] [address] 27357- 3406 Oct, [place] [address] 90730- 9116 Oct, Fibromyalgia M79.7 [place] [address] 27394- 0468 Sep, Restless leg syndrome G25.81 and Restless leg G25.81 [place] [address] [place] [id number] [place] [address] 41765- 6789 Sep, [place] [address] 55413- 3653 Sep, Seasonal allergic rhinitis due to pollen J30.1 ; Screening for breast cancer Z12.31 ; Chest pain at rest R07.9 ; Restless leg syndrome G25.81 ; Essential (primary) hypertension I10 and Depressed F32.9 [place] [address] 32399- 6027 August, Fibromyalgia M79.7 [facility] [address] [address] August, [facility] [id number] [place] [address] 89079- 2053 August, [facility] [address] [place] [id number] [place] [address] 48202- [address]54 August, Ab[address] chest [address] R93.8 [facility] [id number] [place] [address] 94263- 4805 August, Generalized anxiety disorder F41.1 and Major depressive disorder, recurrent episode with anxious distress F33.9 [place] [address] [place] [id number] [place] [address] 29588- 8918 August, Ab[address] chest [address] R93.8 [place] [address] [place] [id number] [place] [address] 17234- 3717 Jul, [facility] [address] [place] [id number] [place] [address] 92994- 3107 Jul, Chronic kidney disease, stage 4 (severe) N18.4 [facility] [address] [place] [address] 79493- 9582 Jul, [facility] [id number] [place] [address] 38375- 2501 Jul, Restless leg G25.81 ; Mixed stress and urge urinary incontinence N39.46 and Fibromyalgia M79.7 [facility] [id number] [place] [address] 27758- 0681 Jul, Chronic kidney disease, stage 4 (severe) N18.4 [facility] [id number] [place] [address] 38694- 5118 Jun, Orthostatic hypotension I95.1 ; Chronic kidney disease, stage 4 (severe) N18.4 ; Chest wall discomfort R07.89 and Body mass index (BMI) of 40.0-44.9 in adult Z68.41 [facility] [address] [place] [id number] [place] [address] 28486- 0367 Jun, [facility] [address] [place] [id number] [place] [address] 80986- 2747 Jun, Orthostatic hypotension I95.1 [facility] [address] [place] [id number] [place] [address] 49138- 0882 Jun, [facility] [address] [place] [id number] [place] [address] 25746 -9772 Jun, Orthostatic hypotension I95.1 ; Dysuria R30.0 and Acute cystitis without hematuria N30.00 [facility] [address] [place] [id number] [place] [address] 83198- 7236 Jun, [facility] [address] [place] [id number] [place] [address] 91638- 5375 Jun, Chronic kidney disease, stage 4 (severe) N18.4 [facility] [address] [place] [id number] [place] [address] 28917- 1272 Jun, Fibromyalgia M79.7 [facility] [address] [place] [id number] [place] [address] 20334- 5643 Jun, [facility] [address] [place] [id number] [place] [address] 52592- 6151 Jun, [facility] [address] [place] [id number] [place] [address] 33074- [address] May, [address] R93.8 and Stage 3 chronic kidney disease N18.3 [facility] [address] [place] [id number] [place] [address] 06311- 1494 May, Chronic kidney disease, stage 4 (severe) N18.4 [facility] [address] [place] [id number] [place] [address] 77459- 6796 May, Chronic kidney disease, stage 4 (severe) N18.4 [facility] [address] [place] [address]- [address] May, [address] R93.8 [facility] [address] [place] [address] 82245- 7873 May, [facility] [address] [place] [address] 34903- 7270 May, [facility] [address] [place] [id number] [place] [address] 50384- 4384 May, Generalized anxiety disorder F41.1 and Major depressive disorder, recurrent episode with anxious distress F33.9 [facility] [address] [place] [address] 86180- 6046 May, Mood disorder F39 [facility] [address] [place] [address] 18979- 9556 Apr, [facility] [address] [place] [address] 95151- 4121 Apr, Infected skin lesion L08.9 and Muscle strain of right shoulder region, initial encounter S46.911A [facility] [address] [place] [id number] [place] [address] 38969- 7006 Apr, Generalized anxiety disorder F41.1 and Major depressive disorder, recurrent episode with anxious distress F33.9 [facility] [address] [address]- 7901 Apr, [facility] [address] [place] [address] 73180- 4365 Apr, Recent urinary tract infection Z87.440 and Hypothyroid E03.9 [facility] [address] [place] [address] 54672- 4344 Apr, Generalized anxiety disorder F41.1 and Major depressive disorder, recurrent episode with anxious distress F33.9 [facility] [address] [address]- 7109 Apr, Recent urinary tract infection Z87.440 [facility] [address] [place] [address] 82036- 0499 Mar, [facility] [address] [place] [id number] [place] [address] 79826 -3670 Mar, Dysuria R30.0 ; Acute cystitis without hematuria N30.00 and BMI 40.0-44.9, adult Z68.41 [place] [address] [place] [id number] [place] [address] 01452- 4673 Mar, [facility] [address] [place] [id number] [place] [address] 73396- 5811 Mar, [place] [address] [place] [id number] [place] [address] 65262- 9592 Mar, Generalized anxiety disorder F41.1 and Major depressive disorder, recurrent episode with anxious distress F33.9 [place] [address] [place] [id number] [place] [address] 11544- 3819 Feb, Conjunctivitis, bacterial H10.9 [place] [address] [place] [id number] [place] [address] 10089- 4447 Feb, [facility] [address] [place] [id number] [place] [address] 44974 -3064 Feb, Conjunctivitis, bacterial H10.9 [place] [address] [place] [id number] [place] [address] 78009- 4342 Feb, [facility] [address] [place] [id number] [place] [address] 67329 -9888 Feb, Dysuria R30.0 ; Acute cystitis N30.00 and BMI 40.0-44.9, adult Z68.41 [place] [address] [place] [id number] [place] [address] 93582- 2370 08 Feb, 2017 [facility] [address] [place] [id number] [place] [address] 74469- 9705 Feb, Generalized anxiety disorder F41.1 and Major depressive disorder, recurrent episode with anxious distress F33.9 [place] [address] [place] [id number] [place] [address] 32411- 5574 Feb, Mood disorder F39 and BMI 40.0-44.9, adult Z68.41 [place] [address] [place] [id number] [place] [address] 34888- 6317 Jan, [place] [address] 92164- 6203 Jan, [place] [address] [place] [id number] [place] [address] 85935- 9072 Jan, Hypothyroid E03.9 [place] [address] 45945- 0524 Jan, [place] [address] [place] [id number] [place] [address] 55493- 5267 Jan, Chronic kidney disease, unspecified N18.9 ; Hypokalemia E87.6 ; Essential (primary) hypertension I10 ; Fibromyalgia M79.7 ; Coronary artery disease involving tolowa dee-ni' coronary artery of tolowa dee-ni' heart, angina presence unspecified I25.10 ; Hypothyroid E03.9 and Encounter for immunization Z23 [place] [address] [place] [id number] [place] [address] 96915- 7396 Jan, Hypothyroid E03.9 [place] [address] [place] [id number] [place] [address] 90624- 1015 Jan, [place] [address] [place] [id number] [place] [address] 78488- 1380 Dec, Vitamin D deficiency E55.9 [place] [address] [place] [id number] [place] [address] 41798- 7385 Dec, Primary osteoarthritis of left knee M17.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 [place] [address] [place] [id number] [place] [address] 86235- 5056 Dec, Fibromyalgia M79.7 [place] [address] 87904- 7428 18 Sep, 2017 Mood disorder F39 [facility] [address] [place] [address] 35280- 2044 13 Dec, 2016 [facility] [id number] [place] [address] 40304- 8614 2016 Generalized anxiety disorder F41.1 and Major depressive disorder, recurrent episode with anxious distress F33.9 [facility] [address] [place] [address] 86464- 9742 11 Dec, 2016 [facility] [address] [place] [address] 16572- 4137 08 Dec, 2016 Streptococcal meningitis G00.2 [facility] [address] [place] [address] 91972- 4324 07 Dec, 2016 Streptococcal meningitis G00.2 [facility] [address] [place] [address] 77371- 5224 07 Dec, 2016 [facility] [id number] [place] [address] 56777- 3094 06 Dec, 2016 Streptococcal meningitis G00.2 [facility] [address] [place] [address] 09928- 7299 06 Dec, 2016 [facility] [id number] [place] [address] 98734- 8210 06 Dec, 2016 Major depressive disorder, recurrent episode with anxious distress F33.9 [facility] [address] [address]- 2587 29 Nov, 2016 Fever, unspecified fever cause R50.9 [facility] [address] [place] [address] 00876- 4706 24 Nov, 2016 [facility] [address] [place] [address] 68271- 0379 16 Nov, 2016 Hypothyroid E03.9 [facility] [address] [place] [address] 20340- 0532 Nov, Generalized anxiety disorder F41.1 and Major depressive disorder, recurrent episode with anxious distress F33.9 [facility] [address] [place] [address] 81037- 9067 Nov, [facility] [address] [id number] Oct, Dental examination Z01.20 [facility] [address] [place] [id number] [place] [address] 78434- 0420 Oct, Generalized anxiety disorder F41.1 and Major depressive disorder, recurrent episode with anxious distress F33.9 [facility] [address] [place] [id number] [place] [address] 34252- 4939 Oct, Chronic kidney disease, stage 4 (severe) N18.4 [facility] [address] [place] [id number] [place] [address] 00684- 0795 Oct, [facility] [address] [place] [id number] [place] [address] 46119- 6356 Oct, Fibromyalgia M79.7 [facility] [address] [place] [id number] [place] [address] 06268- 9245 Oct, [facility] [address] [place] [id number] [place] [address] 47709- 8963 Oct, Generalized anxiety disorder F41.1 ; Major depressive disorder, recurrent episode with anxious distress F33.9 and Bipolar disorder, current episode manic without psychotic features F31.10 [facility] [address] [place] [address] 71463- 1911 Sep, [facility] [address] [place] [address] 49059- 7182 Sep, [facility] [address] [place] [id number] [place] [address] 73159- 3890 Sep, Vitamin D deficiency E55.9 [facility] [address] [place] [address] 29806- 0963 Sep, Vitamin D deficiency E55.9 [place] [address] [address]- 7345 Sep, [place] [address] [place] [id number] [place] [address] 33563- 8743 Sep, Chronic kidney disease, stage 4 (severe) N18.4 ; Hypothyroid E03.9 ; Restless leg G25.81 ; Fibromyalgia M79.7 ; Essential ( primary) hypertension I10 ; Vitamin D deficiency E55.9 ; Dyspepsia R10.13 ; Anemia in chronic kidney disease D63.1 ; Chronic kidney disease, unspecified N18.9 ; Coronary artery disease involving tolowa dee-ni' coronary artery of tolowa dee-ni' heart , angina presence unspecified I25.10 ; Screening breast examination Z12.39 and Low back pain M54.5 [place] [address] [place] [id number] [place] [address] 15334- 8918 August, Generalized anxiety disorder F41.1 and Major depressive disorder, recurrent episode with anxious distress F33.9 [place] [address] [place] [id number] [place] [address] 00100- 3020 August, Generalized anxiety disorder F41.1 and Major depressive disorder, recurrent episode with anxious distress F33.9 [place] [address] [place] [id number] [place] [address] 99185- 1466 August, Fibromyalgia M79.7 [place] [address] [place] [id number] [place] [address] 83150- 2995 Jul, Generalized anxiety disorder F41.1 and Major depressive disorder, recurrent episode with anxious distress F33.9 [place] [address] [place] [id number] [place] [address] 34442- 5859 Jul, Fibromyalgia M79.7 [place] [address] [place] [id number] [place] [address] 58329- 4442 Jul, Generalized anxiety disorder F41.1 [place] [address] [place] [id number] [place] [address] 84040- 9757 May, [place] [address] [place] [address] [place] [address]- 6539 16 May, 2016 Hypothyroid E03.9 [place] [address] 62052- 6835 08 May, 2016 Chronic kidney disease, stage 4 (severe) N18.4 ; Hypothyroid E03.9 ; Restless leg G25.81 ; Fibromyalgia M79.7 ; Essential ( primary) hypertension I10 ; Vitamin D deficiency E55.9 ; Dyspepsia R10.13 ; Acute non-recurrent maxillary sinusitis J01.00 ; Anemia in chronic kidney disease D63.1 ; Chronic kidney disease, unspecified N18.9 and Coronary artery disease involving tolowa dee-ni' coronary artery of tolowa dee-ni' heart, angina presence unspecified I25.10 [place] [address] [place] [id number] [place] [address] 27608- 6340 02 May, 2016 Vitamin D deficiency, unspecified E55.9 [place] [address] [place] [id number] [place] [address] 64911- 0209 May, Generalized anxiety disorder F41.1 and Major depressive disorder, recurrent episode with anxious distress F33.9 [place] [address] 00939- 1204 Apr, Pain in right knee M25.561 and Pain in left knee M25.562 [place] [address] [place] [id number] [place] [address] 06106- 8564 Apr, [place] [address] [place] [id number] [place] [address] 26538- 8627 Apr, [place] [address] [place] [id number] [place] [address] 79821- 8271 Apr, [place] [address] 78115- 7531 Mar, Generalized anxiety disorder F41.1 and Major depressive disorder, recurrent episode with anxious distress F33.9 [place] [address] [place] [id number] [place] [address] 44147- 5662 Mar, Generalized anxiety disorder F41.1 and Major depressive disorder, recurrent episode with anxious distress F33.9 [place] [address] [place] [id number] [place] [address] 49810- 3833 Mar, [facility] [address] [place] [id number] [place] [address] 37471- 5682 Mar, [place] [address] [place] [id number] [place] [address] 98870- 7942 Mar, [place] [address] [place] [id number] [place] [address] 22243- 8741 Mar, Asthma J45.909 and Fibromyalgia M79.7 [place] [address] 22279- 1776 Mar, Chronic kidney disease, stage 4 (severe) N18.4 ; Vitamin D deficiency E55.9 and Essential (primary) hypertension I10 [place] [address] [place] [id number] [place] [address] 57045- 6590 Feb, [place] [address] [place] [id number] [place] [address] 45861- 1495 Feb, Dysuria R30.0 ; Mixed stress and urge urinary incontinence N39.46 ; Fibromyalgia M79.7 and Chronic kidney disease, stage IV (severe) N18.4 [place] [address] [place] [id number] [place] [address] 83461- 4151 Feb, Chronic kidney disease, stage 4 (severe) N18.4 [place] [address] [place] [id number] [place] [address] 56385- 9192 Feb, Chronic kidney disease, stage 4 (severe) N18.4 [place] [address] [place] [id number] [place] [address] 00058- 2414 Feb, [place] [address] [place] [id number] [place] [address] 97183- 3260 Feb, Vitamin D deficiency, unspecified E55.9 [place] [address] [place] [address]- 1518 Jan, [facility] [address] [place] [id number] [place] [address] 55526- 9648 Jan, [facility] [address] [place] [id number] [place] [address] 37525- 4472 Dec, [facility] [address] [place] [id number] [place] [address] 91616- 2426 Dec, Chronic kidney disease, stage 4 (severe) N18.4 [facility] [address] [place] [id number] [place] [address] 38841- 8494 Dec, Dysthymic disorder F34.1 and Generalized anxiety disorder F41.1 [facility] [address] [place] [id number] [place] [address] 61132- 6982 Dec, [facility] [address] [place] [id number] [place] [address] 19138- 6686 Dec, [facility] [address] [place] [id number] [place] [address] 46691- 5850 Dec, Dysthymic disorder F34.1 and Generalized anxiety disorder F41.1 [place] [address] [place] [id number] [place] [address] 77042- 0835 Dec, Dysuria R30.0 ; Chronic kidney disease, stage 4 (severe) N18.4 ; Hypertension I10 ; Dyspepsia R10.13 ; Yeast dermatitis B37.2 ; Palpitations R00.2 ; Hypothyroid E03.9 ; Functional diarrhea K59.1 and Other seasonal allergic rhinitis J30.2 [facility] [id number] [place] [address] 10053 -7060 Dec, [facility] [address] [place] [id number] [place] [address] 35022 -6734 Nov, Dysuria R30.0 and Stress incontinence N39.3 [facility] [address] [place] [id number] [place] [address] 49190- 2795 Nov, [place] [address] [place] [id number] [place] [address] 12919- 6550 Nov, [place] [id number] [place] [address] 76459- 5384 Nov, Osteoarthritis of knees, bilateral M17.0 [place] [facility] [id number] [place] [address] 11706- 0781 Nov, Dysthymic disorder F34.1 and Generalized anxiety disorder F41.1 [place] [facility] [id number] [place] [address] 65420- 9648 Nov, [address] [address] 8[address]- [address] Nov, [place] [id number] [place] [address] 73412- 8646 Nov, Urgency of urination R39.15 [place] [facility] [id number] [place] [address] 38769- 6573 Nov, [place] [id number] [place] [address] 52470- 9048 Nov, Chronic kidney disease, stage 4 (severe) N18.4 [place] [facility] [id number] [place] [address] 56881- 2997 Oct, Hypertension I10 ; Coronary artery disease involving [place]low[place] de[place]ni' coronary artery of [place] de[place]' heart, angina presence unspecified I25.10 ; Palpitations R00.2 ; Hypothyroid E03.9 ; Right foot pain M79.671 ; Functional diarrhea K59.1 and Other seasonal allergic rhinitis J30.2 [place] [id number] [place] [address] 30608- 9197 Oct, Dysthymic disorder F34.1 and Generalized anxiety disorder F41.1 [place] [facility] [id number] [place] [address] 24929- 3040 Sep, [place] [id number] [place] [address] 74100- 6811 Sep, [facility] [id number] [place] [address] 02009- 9779 Sep, [facility] [facility] [id number] [place] [address] 63533- 3350 Sep, [facility] [id number] [place] [address] 83991- 8456 Sep, [place] [id number] [place] [address] 59230- 8953 Sep, Dysthymic disorder F34.1 and Generalized anxiety disorder F41.1 [facility] [facility] [id number] [place] [address] 60838- 7528 16 Sep, 2015 Asthma with acute exacerbation in adult J45.901 ; Dysuria R30.0 ; Chronic kidney disease, stage 4 (severe) N18.4 and History of anemia Z86.2 [place] [id number] [place] [address] 43258- 0971 2015 Generalized anxiety disorder F41.1 and Dysthymic disorder F34.1 [place] [facility] [id number] [place] [address] 68675- 0546 August, Screening breast examination Z12.39 and Acute recurrent maxillary sinusitis J01.01 [facility] [facility] [id number] [place] [address] 12804- 5122 August, Osteoarthritis of knees, bilateral M17.0 [place] [id number] [place] [address] 95312- 9653 August, Chronic kidney disease, stage 4 (severe) N18.4 ; Acute non- recurrent maxillary sinusitis J01.00 ; Urinary problem R39.89 ; Bowel habit changes R19.4 ; Functional diarrhea K59.1 and History of colon polyps Z86.010 [id number] [place] [address] 05847- 7260 Jul, Dysthymic disorder F34.1 and Generalized anxiety disorder F41.1 [facility] [address] [address] 24[address] Jul, [facility] [id number] [place] [address] 82182- 4732 Jul, Dysthymic disorder F34.1 ; Generalized anxiety disorder F41.1 and [facility] use of drug Z79.899 [facility] [id number] [place] [address] 33306- 3302 Jul, [facility] [id number] [place] [address] 99820- 8133 Jun, [facility] [id number] [place] [address] 52575- 3598 Jun, [facility] [id number] [place] [address] 66150- 9786 May, [facility] [id number] [place] [address] 61676- 2357 May, Dysthymic disorder F34.1 and Generalized anxiety disorder F41.1 [place] [id number] [place] [address] 02215- 1788 Apr, Kidney disease N28.9 [place] [id number] [place] [address] 81743- 2052 Apr, Generalized anxiety disorder F41.1 and Dysthymic disorder F34.1 [place] [id number] [place] [address] 51270- 3776 Apr, Chronic kidney disease, stage 4 (severe) N18.4 [facility] [id number] [place] [address] 12772- 3180 Apr, Generalized anxiety disorder F41.1 ; Major depression, recurrent F33.9 and Sleep disturbance G47.9 [facility] [id number] [place] [address] 18465- 3310 Mar, Generalized anxiety disorder F41.1 and Dysthymic disorder F34.1 [facility] [id number] [place] [address] 84229- 8394 Mar, Generalized anxiety disorder F41.1 ; Dysthymic disorder F34.1 and Insomnia G47.00 [facility] [id number] [place] [address] 77538- 0579 Mar, [facility] [id number] [place] [address] 49397- 7819 Mar, [facility] [id number] [place] [address] 26329- 3418 Mar, Osteoarthritis of knees, bilateral M17.0 [address] 11052- 0053 Mar, Hypertension I10 ; Hypothyroid E03.9 ; Dysthymic disorder F34.1 ; Chronic kidney disease, stage 4 (severe) N18.4 and Nausea & vomiting R11.2 [facility] [id number] [place] [address] 89829- 6729 Mar, Generalized anxiety disorder F41.1 ; Dysthymic disorder F34.1 and Insomnia G47.00 [place] [id number] [place] [address] 84182- 8775 Mar, Dehydration E86.0 ; Chronic kidney disease, stage 4 (severe ) N18.4 and Nausea & vomiting R11.2 [facility] [id number] [place] [address] 14193 -5142 Mar, Gastroenteritis K52.9 [facility] [id number] [place] [address] 31990- 1996 Mar, [facility] [id number] [place] [address] 05149- 4739 Mar, [facility] [id number] [place] [address] 48673- 2572 Feb, Dysthymic disorder F34.1 and Generalized anxiety disorder F41.1 [place] [id number] [place] [address] 51854- 3614 Jan, UTI (urinary tract infection) N39.0 ; Asthma J45.909 ; Coronary artery disease involving tolowa dee-ni' coronary artery of tolowa dee-ni' heart, angina presence unspecified I25.10 ; Hypertension I10 ; Hypothyroid E03.9 ; Vitamin D deficiency E55.9 ; Insomnia G47.00 ; Palpitations R00.2 ; Depressed F32.9 ; Restless leg G25.81 and Anxiety F41.9 [place] [id number] [place] [address] 80691- 4165 Jan, Dysthymic disorder F34.1 and Generalized anxiety disorder F41.[address] 35350- 5097 Jan, [address] 43736- 3038 Dec, [address] 19604- 7264 Dec, Alkalosis 276.3 ; Chronic kidney disease, Stage IV (severe) 585.4 ; Hyperpotassemia 276.7 ; Secondary hyperparathyroidism, renal 588.81 ; Proteinuria 791.0 ; Unspecified vitamin D deficiency 268.9 ; Anemia in chronic kidney disease 285.21 ; Other and unspecified hyperlipidemia 272.4 ; Hypertension, essential, benign 401.1 and Chronic kidney disease (CKD), stage III (moderate) 585.3 [place] [id number] [place] [address] 48724- 6982 Dec, [id number] [place] [address] 92857- 1233 Dec, Depressive disorder, not elsewhere classified 311 and Generalized anxiety disorder 300.02 [address] [id number] [place] [address] 30250- 1316 10 Dec, 2014 [id number] [place] [address] 45786- 7792 08 Dec, 2014 [place] [id number] [place] [address] 97675- 3792 Nov, Depressive disorder, not elsewhere classified 311 and Generalized anxiety disorder 300.02 [place] [id number] [place] [address] 90430- 6881 Nov, Arthritis of both knees 716.[address] 69452- 7947 Nov, PAF (paroxysmal atrial fibrillation) 427.31 ; CAD (coronary artery disease) 414.00 ; Chest pain 786.50 and Chronic kidney disease (CKD) stage G4/A1, severely decreased glomerular filtration rate (GFR) between 15-29 mL/min/1.73 square meter and albuminuria creatinine ratio less than 30 mg/g 585.4 [id number] [place] [address] 20050- 5421 Oct, Coronary atherosclerosis of unspecified type of vessel, tolowa dee-ni' or graft 414.00 ; Chronic kidney disease, Stage IV (severe) 585.4 ; Hypertension 401.9 and Edema 782.3 [place] [id number] [place] [address] 19734- 4408 Oct, Depressive disorder, not elsewhere classified 311 and Generalized anxiety disorder 300.02 [place] [id number] [place] [address] 94696- 5849 Oct, Depressive disorder, not elsewhere classified 311 and Generalized anxiety disorder 300.02 [place] [id number] [place] [address] 53937- 5658 Oct, [place] [facility] [id number] [place] [address] 30044- 6464 Oct, [place] [id number] [place] [address] 88368- 1382 Sep, [place] [id number] [place] [address] 47102- 0331 Sep, Chronic kidney disease, Stage IV (severe) 585.4 [place] [id number] [place] [address] 80502- 8600 Sep, [facility] [id number] [place] [address] 90921- 8686 Sep, Coronary atherosclerosis of unspecified type of vessel, tolowa dee-ni' or graft 414.00 ; Hypertension 401.9 ; Edema 782.3 and Hypothyroidism 244.9 [facility] [address] 02215- 2352 Sep, Coronary atherosclerosis of unspecified type of vessel, tolowa dee-ni' or graft 414.00 ; Hypertension 401.9 ; Fibromyalgia 729.1 ; Edema 782.3 ; Hypothyroidism 244.9 and Anemia 285.9 [facility] [address] 98332- 2808 Sep, Anxiety disorder, unspecified 300.00 and Depressive disorder , not elsewhere classified 311 [facility] [address] 91407- 6352 Sep, [facility] [id number] [place] [address] 65798- 6074 August, Generalized anxiety disorder 300.02 [facility] [address] 08214- 0492 August, Closed fracture of lateral malleolus 824.2 [facility] [id number] [place] [address] 56614- 9799 Jul, [facility] [id number] [place] [address] 63477- 4266 Jul, [facility] [id number] [place] [address] 60324- 2228 Jun, [facility] [id number] [place] [address] 75417- 1308 Jun, [facility] [id number] [place] [address] 01671- 4703 Jun, [facility] [id number] [place] [address] 21354- 0482 Jun, [facility] [place] [facility] [address] [id number] [place] [address]- 9114 Jun, [facility] [place] [facility] [address] [id number] [place] [address]- 4405 Jun, [facility] [place] [facility] [address] [id number] [place] [address]- 1230 May, 2014 [facility] [place] [facility] [address] [id number] [place] [address]- 1873 May, 2014 [facility] [place] [facility] [address] [id number] [place] [address]- 9227 May, 2014 [facility] [place] [facility] [address] [id number] [place] [address]- 8503 18 May, 2014 [facility] [place] [facility] [address] [id number] [place] [address]- 0396 16 May, 2014 [facility] [place] [facility] [address] [id number] [place] [address]- 6284 16 May, 2014 [facility] [place] [facility] [address] [id number] [place] [address]- 7733 May, 2014 [facility] [place] [facility] [address] [facility] [id number] [place] [address]- 5622 May, 2014 [facility] [place] [facility] [address] [id number] [place] [address]- 9746 10 May, 2014 [facility] [place] [facility] [address] [id number] [place] [address]- 2328 May, [facility] [place] [facility] [address] [id number] [place] [address]- 9386 Apr, [facility] [place] [facility] [address] [id number] [place] [address]- 6319 Apr, [facility] [place] [facility] [address] [facility] [id number] [place] [address]- 0491 Mar, [facility] [place] [facility] [address] [id number] [place] [address]- 5432 Mar, [facility] [place] [facility] [address] [id number] [place] [address]- 3916 Mar, [facility] [place] [facility] [address] [id number] [place] [address]- 7411 Mar, [facility] [place] [facility] [address] [id number] [place] [address]- 3581 Mar, [facility] [place] [facility] [address] [id number] [place] [address]- 5932 Mar, [facility] [place] [facility] [address] [id number] [place] [address]- 8431 Mar, [facility] [place] [facility] [address] [id number] [place] [address]- 4542 Feb, [facility] [place] [facility] [address] [id number] [place] [address]- 4924 Feb, [facility] [place] [facility] [address] [id number] [place] [address]- 6825 Feb, [facility] [place] [facility] [address] [id number] [place] [address]- 0481 Jan, [facility] [place] [facility] [address] [id number] [place] [address]- 5022 Jan, [facility] [place] [facility] [address] [id number] [address]- 0735 Jan, [facility] [place] [facility] [address] [id number] [place] [address]- 5114 Jan, [facility] [place] [facility] [address] [id number] [place] [address]- 7818 Jan, [facility] [place] [facility] [address] [id number] [place] [address]- 2075 Jan, [facility] [place] [facility] [address] [id number] [place] [address]- 5684 Jan, [facility] [place] [facility] [address] [id number] [place] [address]- 6907 Jan, [facility] [place] [facility] [address] [id number] [place] [address]- 2683 Jan, [facility] [place] [facility] [address] [id number] [place] [address]- 0758 Jan, [facility] [place] [facility] [address] [id number] [place] [address]- 8180 Nov, [facility] [place] [facility] [address] [id number] [place] [address]- 2848 Nov, [facility] [place] [facility] [address] [id number] [place] [address]- 8566 Nov, [facility] [place] [facility] [address] [id number] [place] [address]- 1899 Oct, [facility] [place] [facility] [address] [id number] [place] [address]- 8016 Oct, [facility] [place] [facility] [address] [id number] [place] [address]- 9494 Oct, [facility] [place] [facility] [address] [id number] [place] [address]- 6106 Oct, [facility] [place] [facility] [address] [id number] [place] [address]- 8794 Oct, [facility] [place] [facility] [address] [id number] [place] [address]- 2586 Oct, [facility] [place] [facility] [address] [id number] [place] [address]- 7254 Oct, [facility] [place] [facility] [address] [id number] [place] [address]- 3487 Oct, [facility] [place] [facility] [address] [id number] [place] 3865 Oct, [facility] [place] [facility] [address] [id number] [place] [address]- 2822 Sep, [facility] [place] [facility] [address] [id number] [place] [address]- 4545 Sep, [facility] [place] [facility] [address] [id number] [place] [address]- 8732 Sep, [facility] [place] [facility] [address] [id number] [place] [address]- 8218 Sep, [facility] [place] [facility] [address] [id number] [place] [address]- 9254 Sep, [facility] [place] [facility] [address] [id number] [place] [address]- 9516 Sep, [facility] [place] [facility] [address] [id number] [place] [address]- 5666 Sep, [facility] [place] [facility] [address] [id number] [place] [address]- 8717 Sep, [facility] [place] [facility] [address] [id number] [place] [address]- 2948 Sep, [facility] [place] [facility] [address] [id number] [place] [address]- 3081 August, [facility] [place] [facility] [address] [id number] [place] [address]- 5990 August, [facility] [place] [facility] [address] [id number] [place] [address]- 3132 August, [facility] [place] [facility] [address] [id number] [place] [address]- 0358 August, [facility] [place] [facility] [address] [id number] [place] [address]- 1313 August, [facility] [place] [facility] [address] [id number] [place] [address]- 9270 August, [facility] [place] [facility] [address] [id number] [place] [address]- 4153 Jul, [facility] [place] [facility] [address] [id number] [place] [address]- 3615 Jul, [facility] [place] [facility] [address] [id number] [place] [address]- 7358 Jul, [facility] [place] [facility] [address] [id number] [place] [address]- 0087 Jul, [facility] [place] [facility] [address] [id number] [place] [address]- 1070 Jul, [facility] [place] [facility] [address] [id number] [place] [address]- 7497 Jul, [facility] [place] [facility] [address] [id number] [place] [address]- 4361 Jun, [facility] [place] [facility] [address] [id number] [place] [address]- 5904 Jun, [facility] [place] [facility] [address] [id number] [place] [address]- 3732 May, [facility] [place] [facility] [address] [id number] [place] [address]- 3912 May, [facility] [place] [facility] [address] [id number] [place] [address]- 7118 May, [facility] [place] [facility] [address] [id number] [place] [address]- 0885 May, [facility] [place] [facility] [address] [id number] [place] [address]- 9738 Apr, [facility] [place] [facility] [address] [id number] [place] [address]- 5851 Apr, [facility] [place] [facility] [address] [id number] [place] 4172 Mar, [facility] [place] [facility] [address] [id number] [place] 0158 Mar, [facility] [place] [facility] [address] [id number] [place] [address]- 4501 17 Mar, 2013 [facility] [address] [id number] [place] [address]- 6706 17 Mar, 2013 [facility] [place] [facility] [address] [id number] [place] [address]- 7101 05 Mar, 2013 [facility] [place] [facility] [address] [id number] [place] [address]- 2706 05 Mar, 2013 [facility] [place] [facility] [address] [id number] [place] [address]- 1831 Feb, [facility] [place] [facility] [address] [id number] [place] [address]- 5282 Feb, [facility] [place] [facility] [address] [id number] [place] [address]- 7866 Feb, [facility] [place] [facility] [address] [id number] [place] [address]- 2420 Feb, [facility] [place] [facility] [address] [id number] [place] [address]- 1533 Feb, [facility] [place] [facility] [address] [id number] [place] [address]- 0941 Feb, [facility] [place] [facility] [address] [id number] [place] [address]- 3667 Jan, [facility] [place] [facility] [address] [id number] [place] [address]- 6565 24 Jan, 2013 [facility] [place] [facility] [address] [id number] [place] [address]- 0154 Jan, [facility] [place] [facility] [address] [id number] [place] [address]- 3344 Jan, [facility] [place] [facility] [address] [id number] [place] [address]- 2546 08 Jan, 2013 [facility] [place] [facility] [address] [id number] [place] [address]- 0462 Jan, [facility] [place] [facility] [address] [id number] [place] [address]- 1883 Dec, [facility] [place] [facility] [address] [id number] [place] [address]- 1840 Dec, [facility] [place] [facility] [address] [id number] [place] [address]- 0792 Nov, [facility] [place] [facility] [address] [id number] [place] [address]- 4084 Nov, [facility] [place] [facility] [address] [id number] [place] [address]- 4643 Oct, [facility] [place] [facility] [address] [id number] [place] [address]- 1325 Oct, [facility] [place] [facility] [address] [id number] [place] [address]- 8585 Oct, [facility] [place] [facility] [address] [id number] [place] [address]- 6566 Oct, [facility] [place] [facility] [address] [id number] [place] [address]- 7656 Oct, [facility] [place] [facility] [address] [id number] [place] [address]- 5609 Oct, [facility] [place] [facility] [address] [id number] [place] [address]- 5805 Sep, [facility] [place] [facility] [address] [id number] [place] [address]- 8976 Sep, [facility] [place] [facility] [address] [id number] [place] [address]- 6424 Sep, [facility] [place] [facility] [address] [id number] [place] [address]- 3252 Sep, [facility] [place] [facility] [address] [id number] [place] [address]- 3077 August, [facility] [place] [facility] [address] [id number] [place] [address]- 2373 August, [facility] [address] [id number] [place] [address]- 1201 August, [facility] [address] [id number] [place] [address] August, [facility] [address] [id number] [place] [address] August, [facility] [address] [id number] [place] [address] Jul, [facility] [address] [id number] [place] [address] Jul, [facility] [address] [id number] [place] [address] Jul, [facility] [address] [id number] [place] [address] Jul, [facility] [address] [id number] [place] [address] Jul, [facility] [address] [id number] [place] [address] Jul, [facility] [address] [id number] [place] [address] Jul, [facility] [address] [id number] [place] [address] Jul, [facility] [address] [id number] [place] [address] Jul, [facility] [address] [id number] [place] [address] Jul, [facility] [address] [id number] [id number] Jun, [facility] [address] [id number] [place] [address] Jun, [facility] [address] [id number] [place] [address] Jun, [facility] [address] [id number] [place] [address] Jun, [facility] [place] [facility] [address] [id number] [place] [address] Jun, [facility] [address] [id number] [place] [address]- [address] May, [facility] [address] [id number] [place] [address] May, [facility] [address] [id number] [place] [address] May, [facility] [address] [id number] [place] [address] Apr, [facility] [address] [id number] [place] [address] Apr, [facility] [address] [id number] [place] [address] Apr, [facility] [address] [id number] [place] [address] Apr, [facility] [address] [id number] [place] [address] Apr, [facility] [address] [id number] [place] [address] Apr, [facility] [address] [id number] [place] [address] Mar, [facility] [place] [facility] [address] [id number] [place] [address] Mar, [facility] [place] [facility] [address] [id number] [place] [address] Mar, [facility] [address] [id number] [place] [address] Mar, [facility] [place] [facility] [address] [id number] [place] [address] Feb, [facility] [place] [facility] [address] [id number] [place] [address] Feb, [facility] [place] [facility] [address] [facility] [id number] [place] [address] Feb, [facility] [place] [facility] [address] [id number] [place] [address] Feb, [facility] [place] [facility] [address] [id number] [place] [address] Feb, [facility] [place] [facility] [address] [id number] [place] [address] Feb, [facility] [place] [facility] [address] [facility] [id number] [place] [address] Feb, [facility] [place] [facility] [address] [id number], [place] [address] Feb, [facility] [place] [facility] [address] [id number], [place] [address] Feb, [facility] [place] [facility] [address] [facility] [id number], [place] [address] Feb, [facility] [place] [facility] [address] [id number], [place] [address] Feb, [facility] [place] [facility] [address] [id number], [place] [address] Feb, [facility] [place] [facility] [address] [id number], [place] [address] Feb, [facility] [place] [facility] [address] [id number], [place] [address] Feb, [facility] [place] [facility] [address] [facility] [id number], [place] [address] Feb, [facility] [place] [facility] [address] [id number] [place] [address] 02 Feb, 2012 [facility] [place] [facility] [address] [id number] [place] [address] 31 Jan, 2011 [facility] [place] [facility] [address] [id number] [place] [address] 31 Jan, 2011 [facility] [place] [facility] [address] [id number] [place] [address] Jan, 2011 [facility] [place] [facility] [address] [id number] [place] [address] 31 Jan, 2011 [facility] [place] [facility] [address] [id number] [place] [address] 30 Jan, 2012 [facility] [place] [facility] [address] [id number] [place] [address] Jan, [facility] [place] [facility] [address] [id number] [place] [address] Jan, [facility] [place] [facility] [address] [id number] [place] [address] 7921 Jan, [facility] [place] [facility] [address] [id number] [place] [address] 6279 16 Jan, 2012 [facility] [place] [facility] [address] [facility] [id number] [place] [address] 9269 Jan, [facility] [place] [facility] [address] [id number] [place] [address] 15 Jan, 2012 [facility] [place] [facility] [address] [id number], [place] [address] Jan, [facility] [place] [facility] [address] [id number] [place] [address] Dec, [facility] [place] [facility] [address] [facility] [id number] [place] [address] 26 Dec, 2011 [facility] [place] [facility] [address] [id number] [address] 24 Dec, 2011 [facility] [place] [facility] [address] [id number] [place] [address]673 23 Dec, 2011 [facility] [place] [facility] [address] [id number] [place] [address] 7906 22 Dec, 2011 [facility] [place] [facility] [address] [id number] [place] [address]- 4536 21 Dec, 2011 [facility] [place] [facility] [address] [id number] [place] [address] 8116 20 Dec, 2011 [facility] [place] [facility] [address] [id number] [place] [address] 8719 20 Dec, 2011 [facility] [place] [facility] [address] [id number] [place] [address]112 07 Dec, 2011 [facility] [place] [facility] [address] [id number] [place] [address] 4[address] 06 Dec, 2011 [facility] [place] [facility] [address] [id number] [place] [address] 7317 06 Dec, 2011 [facility] [place] [facility] [address] [id number] [place] [address] 7706 05 Dec, 2011 [facility] [place] [facility] [address] [id number] [place] [address] 8439 23 Nov, 2011 [facility] [place] [facility] [address] [id number] [place] [address] 7037 17 Nov, 2011 [facility] [place] [facility] [address] [id number] [place] [address]- 6882 13 Nov, 2011 [facility] [place] [facility] [address] [id number] [place] [address]- 0440 10 Nov, 2011 [facility] [place] [facility] [address] [id number] [place] [address]- 2011 08 Nov, 2011 [facility] [place] [facility] [address] [id number] [place] [address]- 5269 07 Nov, 2011 [facility] [place] [facility] [address] [id number] [place] [address]- 2546 Nov, [facility] [place] [facility] [address] [id number] [place] [address] 8836 Nov, [facility] [place] [facility] [address] [id number] [place] [address] 5576 Oct, [facility] [place] [facility] [address] [id number] [place] [address] 8036 Oct, [facility] [place] [facility] [address] [id number] [place] [address]- 2856 Oct, [facility] [place] [facility] [address] [id number] [place] [address]- 9647 Oct, [facility] [place] [facility] [address] [id number] [place] [address] 3229 Oct, [facility] [place] [facility] [address] [id number] [place] [address]- 0920 Oct, [facility] [place] [facility] [address] [id number] [place] [address]- 0893 Oct, [facility] [place] [facility] [address] [id number] [place] [address]- 55[address] Sep, [facility] [place] [facility] [address] [id number] [place] [address]- 6566 Sep, [facility] [place] [facility] [address] [id number] [place] [address]- 3541 August, [facility] [place] [facility] [address] [id number] [place] [address] 8999 August, [facility] [place] [facility] [address] [id number] [place] [address] 3691 August, [facility] [place] [facility] [address] [id number] [place] [address]- 5596 August, [facility] [place] [facility] [address] [id number] [place] [address] 8947 Jul, [facility] [place] [facility] [address] [id number] [place] [address]- 6254 06 Jul, 2011 [facility] [address] [id number] [place] [address]- 6907 Jul, [facility] [address] [id number] [place] [address] 7286 Jul, [facility] [address] [id number] [place] [address]- 0068 Jul, [facility] [address] [id number] [place] [address]- 7114 Jul, [facility] [address] [id number] [place] [address]- 8031 Jul, [facility] [address] [id number] [place] [address]- 6068 Jul, [facility] [address] [id number] [place] [address]- 6383 Jul, [facility] [address] [id number] [place] [address] 8561 Jun, [facility] [address] [id number] [place] [address]- 9194 Jun, [facility] [address] [id number] [place] [address] 4326 15 Jun, 2011 [facility] [address] [id number] [place] [address]- 7963 14 Jun, 2011 [facility] [address] [id number] [place] [address]- 7594 Jun, [facility] [place] [facility] [address] [id number] [place] [address]- 8062 Jun, [facility] [address] [id number] [place] [address]- 7246 Jun, [facility] [address] [id number] [place] [address]- 0800 May, [facility] [address] [id number] [place] [address]- 6682 May, [facility] [place] [facility] [address] [id number] [place] [address]- 8036 May, [facility] [place] [facility] [address] [id number] [place] [address]- 8356 16 May, 2011 [facility] [place] [facility] [address] [id number] [place] [address]- 3796 May, [facility] [place] [facility] [address] [id number] [place] [address]- 2301 Apr, [facility] [place] [facility] [address] [id number] [place] [address]- 9789 Apr, [facility] [place] [facility] [address] [id number] [place] [address]- 9500 Apr, [facility] [place] [facility] [address] [id number] [place] [address]- 8614 Apr, [facility] [place] [facility] [address] [id number] [place] [address]- 1307 Apr, [facility] [place] [facility] [address] [id number] [place] [address]- 0576 Mar, [facility] [place] [facility] [address] [id number] [place] [address]- 2242 Mar, [facility] [place] [facility] [address] [id number] [place] [address]- 5011 Mar, [facility] [place] [facility] [address] [id number] [place] [address]- 6524 Mar, [facility] [place] [facility] [address] [id number] [place] [address]- 3173 Mar, [facility] [place] [facility] [address] [id number] [place] [address]- 3056 Mar, [facility] [place] [facility] [address] [id number] [place] [address]- 1769 Mar, [facility] [place] [facility] [address] [id number] [place] [address]- 5056 Feb, [facility] [place] [facility] [address] [id number] [place] [address] Feb, [facility] [place] [facility] [address] [id number] [place] [address]- 6236 Feb, [facility] [place] [facility] [address] [id number] [place] [address]- 3311 Feb, [facility] [place] [facility] [address] [id number] [place] [address]- 6309 Jan, [facility] [place] [facility] [address] [id number] [place] [address]- 4046 Jan, [facility] [place] [facility] [address] [id number] [place] [address]- 7310 Jan, [facility] [place] [facility] [address] [id number] [place] [address]- 8567 Jan, [facility] [place] [facility] [address] [id number] [place] [address]- 4727 Nov, [facility] [place] [facility] [address] [id number] [place] [address]- 3204 Mar, [facility] [place] [facility] [address] [id number] [place] [address]- 6046 Mar, [facility] [place] [facility] [address] [id number] [place] [address]- 2540 Mar, [facility] [place] [facility] [address] [id number] [place] [address]- 3634 Mar, [facility] [place] [facility] [address] [id number] [place] [address] 2547 Mar, [facility] [place] [facility] [address] [id number] [place] [address]- 7062 Mar, [facility] [address] [facility] [id number] [place] [address] 3940 Feb, [facility] [address] [facility] [id number], [place] [address] 9106 Feb, [facility] [address] [facility] [id number], [place] [address]- 9399 Jan, [facility] [address] [facility] [id number], [place] [address]- 3892 Jan, [facility] [address] [facility] [id number], [place] [address]- 2622 Jan, IMMUNIZATIONS No Known Immunizations SOCIAL HISTORY Never Assessed REASON FOR VISIT [facility] PLAN OF CARE VITAL SIGNS MEDICATIONS [...] 2020 & 2007 Surgical History Bladder surgery [facility] 03/2016 Hospitalization History Surgeries Only Hospitalization History 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
--- OUTSIDE RECORDS SUMMARY | 2018-05-29 08:55 | XMS REPORT ---
Author Author ISABEL MAE 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 Name Role Phone ISABEL MAE Unavailable PROBLEMS Type Condition ICD9-CM Code [id number] Code Onset Dates Condition Status SNOMED Code Problem Long-term use of high-risk medication Z79.899 Active 568207552 Problem Abnormal chest CT R93.8 Active 875003900 Problem Generalized anxiety disorder F41.1 Active 23910770 Problem Low back pain M54.5 Active 470611262 Problem Dysthymic disorder F34.1 Active 67627480 Problem Depressed F32.9 Active 94773044 Problem Coronary artery disease involving [place] coronary artery of [place]k heart, angina presence unspecified I25.10 Active 2700543183941 Problem Hypothyroid E03.9 Active 95537215 Problem Insomnia G47.00 Active 542688763 Problem Vitamin D deficiency E55.9 Active 50062999 Problem Asthma J45.909 Active 488994615 Problem Chronic kidney disease, unspecified N18.9 Active 493214438 Problem Palpitations R00.2 Active 68370041 Problem Anemia in chronic kidney disease D63.1 Active 209062620090405 Problem Primary osteoarthritis of left knee M17.12 Active 389901237 Problem Bipolar disorder, current episode manic without psychotic features F31.10 Active 866955421 Problem Restless leg syndrome G25.81 Active 30821562 Problem Seasonal allergic rhinitis due to pollen J30.1 Active 70019754 Problem Functional diarrhea K59.1 Active 10610944 Problem Chronic kidney disease, stage 4 (severe) N18.4 Active 484548904 Problem Restless leg G25.81 Active 01954194 Problem Mood disorder F39 Active 61778080 Problem Degenerative tear of medial meniscus of left knee M23.204 Active 171063569 Problem Body mass index (BMI) of 40.0-44.9 in adult Z68.41 Active 940399353 Problem Stage 3 chronic kidney disease N18.3 Active 450159611 Problem Asthma with acute exacerbation in adult J45.901 Active 642648130 Problem Other seasonal allergic rhinitis J30.2 Active 688896090 Problem History of colon polyps Z86.010 Active 459707599 Problem History of anemia Z86.2 Active 648041226 Problem Fibromyalgia M79.7 Active 047843891 Problem Essential (primary) hypertension I10 Active 04610007 Problem Hypokalemia E87.6 Active 21429962 Problem Mixed stress and urge urinary incontinence N39.46 Active 853454611 ALLERGIES No Known Allergies ENCOUNTERS Encounter Location Date Diagnosis [place] [address] [address] Nov, [place] [address] [address] 65[address] Oct, Generalized anxiety disorder F41.1 and Major depressive disorder, recurrent episode with anxious distress F33.9 [place] [address] 16712- 6083 Oct, [place] [address] 12[address]- 4914 Oct, Fibromyalgia M79.7 [place] [address] 39964- 5712 Sep, Restless leg syndrome G25.81 and Restless leg G25.81 [place] [address] [place] [id number] [place] [address] 93254- 7214 Sep, [place] [address] 64387- 5261 Sep, Seasonal allergic rhinitis due to pollen J30.1 ; Screening for breast cancer Z12.31 ; Chest pain at rest R07.9 ; Restless leg syndrome G25.81 ; Essential (primary) hypertension I10 and Depressed F32.9 [place] [address] [place] [id number] [place] [address] 36599- 2608 August, Fibromyalgia M79.7 [place] [address] [place] [address] August, [facility] [address] [place] [id number] [place] [address] 57967- 2423 August, [facility] [address] [place] [id number] [place] [address] 68317- [address] August, [address] R93.8 [facility] [address] [place] [id number] [place] [address] 61005- 4983 August, Generalized anxiety disorder F41.1 and Major depressive disorder, recurrent episode with anxious distress F33.9 [place] [address] [place] [id number] [place] [address] 86224- 9530 August, Ab[address] chest [address] R93.8 [place] [address] [place] [id number] [place] [address] 42274- 0900 Jul, [place] [address] [place] [id number] [place] [address] 73556- 6845 Jul, Chronic kidney disease, stage 4 (severe) N18.4 [place] [address] [place] [id number] [place] [address] 34869- 6624 Jul, [place] [address] [place] [id number] [place] [address] 14534- 3262 Jul, Restless leg G25.81 ; Mixed stress and urge urinary incontinence N39.46 and Fibromyalgia M79.7 [place] [address] [place] [id number] [place] [address] 22240- 9657 Jul, Chronic kidney disease, stage 4 (severe) N18.4 [place] [id number] [place] [address] 98989- 9309 Jun, Orthostatic hypotension I95.1 ; Chronic kidney disease, stage 4 (severe) N18.4 ; Chest wall discomfort R07.89 and Body mass index (BMI) of 40.0-44.9 in adult Z68.41 [place] [address] [place] [id number] [place] [address] 71448- 1093 Jun, [facility] [address] [address] 0376 Jun, Orthostatic hypotension I95.1 [facility] [address] [place] [id number] [place] [address] 99445- 7179 Jun, [facility] [address] [place] [id number] [place] [address] 26268 -0028 Jun, Orthostatic hypotension I95.1 ; Dysuria R30.0 and Acute cystitis without hematuria N30.00 [facility] [address] [place] [id number] [place] [address] 88679- 5311 Jun, [facility] [address] [place] [id number] [place] [address] 40452- 1622 Jun, Chronic kidney disease, stage 4 (severe) N18.4 [facility] [address] [place] [id number] [place] [address] 58403- 8862 Jun, Fibromyalgia M79.7 [facility] [address] [place] [id number] [place] [address] 30641- 5263 Jun, [facility] [address] [place] [id number] [place] [address] 39144- 1297 Jun, [facility] [address] [place] [id number] [place] [address] 76982- [address] May, [address] R93.8 and Stage 3 chronic kidney disease N18.3 [facility] [address] [place] [id number] [place] [address] 88906- 5658 May, Chronic kidney disease, stage 4 (severe) N18.4 [facility] [address] [place] [id number] [place] [address] 79583- 4965 May, Chronic kidney disease, stage 4 (severe) N18.4 [facility] [address] [place] [id number] [place] [address] 16769- [address] May, [address] R93.8 [facility] [address] [facility] [id number] [address] 39[address] May, [facility] [address] [facility] [id number] [address] 0918 May, [facility] [address] [facility] [id number] [address] 7799 May, Generalized anxiety disorder F41.1 and Major depressive disorder, recurrent episode with anxious distress F33.9 [facility] [address] [address] 5162 May, Mood disorder F39 [facility] [address] [address]- 3[address] Apr, [facility] [address] [address]- 7525 Apr, Infected skin lesion L08.9 and Muscle strain of right shoulder region, initial encounter S46.911A [facility] [address] [address] 3815 Apr, Generalized anxiety disorder F41.1 and Major depressive disorder, recurrent episode with anxious distress F33.9 [facility] [address] [address]- 9411 Apr, [facility] [address] [address]- 3186 Apr, Recent urinary tract infection Z87.440 and Hypothyroid E03.9 [facility] [address] [place] [id number] [address] 1224 Apr, Generalized anxiety disorder F41.1 and Major depressive disorder, recurrent episode with anxious distress F33.9 [facility] [address] [place] [id number] [address]- 9684 Apr, Recent urinary tract infection Z87.440 [facility] [address] [place] [id number] [address]- 6848 Mar, [facility] [address], [place] [address] Mar, Dysuria R30.0 ; Acute cystitis without hematuria N30.00 and BMI 40.0-44.9, adult Z68.41 [facility] [address], [place] [address]- 8685 14 Mar, 2017 [facility] [address] [place] [id number] [place] [address] 91827- 1793 Mar, [facility] [address] [place] [id number] [place] [address] 06490- 4195 Mar, Generalized anxiety disorder F41.1 and Major depressive disorder, recurrent episode with anxious distress F33.9 [place] [address] [place] [id number] [place] [address] 62416- 9577 Feb, Conjunctivitis, bacterial H10.9 [place] [address] [place] [id number] [place] [address] 87347- 5126 Feb, [facility] [address] [place] [id number] [place] [address] 81582 -2942 Feb, Conjunctivitis, bacterial H10.9 [place] [id number] [place] [address] 95001- 8896 Feb, [facility] [address] [address] Feb, Dysuria R30.0 ; Acute cystitis N30.00 and BMI 40.0-44.9, adult Z68.41 [place] [id number] [place] [address] 03070- 9982 Feb, [place] [address] [place] [id number] [place] [address] 72881- 6697 Feb, Generalized anxiety disorder F41.1 and Major depressive disorder, recurrent episode with anxious distress F33.9 [place] [id number] [place] [address] 78436- 8180 Feb, Mood disorder F39 and BMI 40.0-44.9, adult Z68.41 [facility] [address] [place] [id number] [place] [address] 24676- 3576 Jan, [facility] [address] [place] [id number] [place] [address] 79808- 6227 Jan, [facility] [address] [place] [id number] [place] [address] 89706- 9034 Jan, Hypothyroid E03.9 [facility] [address] [place] [id number] [place] [address] 55143- 2854 Jan, [place] [address] [place] [id number] [place] [address] 97452- 5153 Jan, Chronic kidney disease, unspecified N18.9 ; Hypokalemia E87.6 ; Essential (primary) hypertension I10 ; Fibromyalgia M79.7 ; Coronary artery disease involving [place] coronary artery of [place] heart, angina presence unspecified I25.10 ; Hypothyroid E03.9 and Encounter for immunization Z23 [facility] [address] [place] [id number] [place] [address] 29723- 1425 Jan, Hypothyroid E03.9 [place] [address] [place] [id number] [place] [address] 40205- 2992 Jan, [facility] [address] [place] [id number] [place] [address] 24432- 4550 Dec, Vitamin D deficiency E55.9 [facility] [address] [place] [id number] [place] [address] 47760- 5434 Dec, Primary osteoarthritis of left knee M17.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 [facility] [address] [place] [id number] [place] [address] 19566- 5345 Dec, Fibromyalgia M79.7 [facility] [address] [place] [id number] [place] [address] 15088- 8101 Dec, Mood disorder F39 [facility] [address] [place] [address]- 5844 13 Dec, 2016 [facility] [address] [facility] [id number] [address]- 6080 13 Dec, 2016 Generalized anxiety disorder F41.1 and Major depressive disorder, recurrent episode with anxious distress F33.9 [facility] [address] [address]- 7076 11 Dec, 2016 [facility] [address], [place] [address]- 8160 08 Dec, 2016 Streptococcal meningitis G00.2 [facility] [address], [place] [address]- 6623 07 Dec, 2016 Streptococcal meningitis G00.2 [facility] [id number], [place] [address]- 2935 07 Dec, 2016 [facility] [id number] [place] [address] 18387- 9462 06 Dec, 2016 Streptococcal meningitis G00.2 [facility] [address], [place] [address]- 9782 06 Dec, 2016 [facility] [id number], [place] [address]- 7241 06 Dec, 2016 Major depressive disorder, recurrent episode with anxious distress F33.9 [facility] [id number], [place] [address]- 8280 Nov, Fever, unspecified fever cause R50.9 [facility] [address] [place] [id number] [address]- 0657 24 Nov, 2016 [facility] [id number] [place] [address] 14309- 3674 16 Nov, 2016 Hypothyroid E03.9 [facility] [address] [place] [id number], [place] [address]- 3399 10 Nov, 2016 Generalized anxiety disorder F41.1 and Major depressive disorder, recurrent episode with anxious distress F33.9 [facility] [id number], [place] [address]- 1808 Nov, [facility] [id number] [id number] Oct, Dental examination Z01.20 [facility] [id number] [place] [address] 55439- 7419 Oct, Generalized anxiety disorder F41.1 and Major depressive disorder, recurrent episode with anxious distress F33.9 [facility] [address] [place] [id number] [place] [address] 44294- 1989 Oct, Chronic kidney disease, stage 4 (severe) N18.4 [facility] [address] [place] [id number] [place] [address] 48617- 9875 Oct, [place] [address] [place] [id number] [place] [address] 15863- 2170 Oct, Fibromyalgia M79.7 [facility] [id number] [place] [address] 97129- 7229 Oct, [facility] [address] [place] [id number] [place] [address] 22024- 5473 Oct, Generalized anxiety disorder F41.1 ; Major depressive disorder, recurrent episode with anxious distress F33.9 and Bipolar disorder, current episode manic without psychotic features F31.10 [facility] [address], [place] [address]- 8627 Sep, [facility] [address] [place] [id number] [place] [address] 57716- 7574 Sep, [facility] [id number] [place] [address] 61213- 0070 Sep, Vitamin D deficiency E55.9 [facility] [id number], [place] [address]- 2544 14 Sep, 2016 Vitamin D deficiency E55.9 [facility] [id number] [place] [address] 63936- 2309 Sep, [place] [id number] [place] [address] 99771- 1634 Sep, Chronic kidney disease, stage 4 (severe) N18.4 ; Hypothyroid E03.9 ; Restless leg G25.81 ; Fibromyalgia M79.7 ; Essential ( primary) hypertension I10 ; Vitamin D deficiency E55.9 ; Dyspepsia R10.13 ; Anemia in chronic kidney disease D63.1 ; Chronic kidney disease, unspecified N18.9 ; Coronary artery disease involving [place] coronary artery of [place] heart , angina presence unspecified I25.10 ; Screening breast examination Z12.39 and Low back pain M54.5 [place] [address] [place] [id number] [place] [address] 99849- 0229 August, Generalized anxiety disorder F41.1 and Major depressive disorder, recurrent episode with anxious distress F33.9 [place] [address] [place] [id number] [place] [address] 18942- 8801 August, Generalized anxiety disorder F41.1 and Major depressive disorder, recurrent episode with anxious distress F33.9 [place] [address] [place] [id number] [place] [address] 53959- 6652 August, Fibromyalgia M79.7 [place] [address] [place] [id number] [place] [address] 67308- 0226 Jul, Generalized anxiety disorder F41.1 and Major depressive disorder, recurrent episode with anxious distress F33.9 [place] [address] [place] [id number] [place] [address] 23164- 4502 Jul, Fibromyalgia M79.7 [place] [address] [place] [id number] [place] [address] 95578- 1944 Jul, Generalized anxiety disorder F41.1 [place] [address] [place] [id number] [place] [address] 46544- 2857 May, [place] [address] [place] [id number] [place] [address] 30463- 9795 May, Hypothyroid E03.9 [place] [address] [address]- 1915 08 May, 2016 Chronic kidney disease, stage 4 (severe) N18.4 ; Hypothyroid E03.9 ; Restless leg G25.81 ; Fibromyalgia M79.7 ; Essential ( primary) hypertension I10 ; Vitamin D deficiency E55.9 ; Dyspepsia R10.13 ; Acute non-recurrent maxillary sinusitis J01.00 ; Anemia in chronic kidney disease D63.1 ; Chronic kidney disease, unspecified N18.9 and Coronary artery disease involving [place] coronary artery of [place] heart, angina presence unspecified I25.10 [place] [address] [place] [id number] [place] [address] 88588- 7857 May, Vitamin D deficiency, unspecified E55.9 [place] [address] [id number] [address]- 1270 May, Generalized anxiety disorder F41.1 and Major depressive disorder, recurrent episode with anxious distress F33.9 [place] [address] [place] [id number] [place] [address] 86768- 1062 Apr, Pain in right knee M25.561 and Pain in left knee M25.562 [place] [address] [place] [id number] [place] [address] 67930- 7273 Apr, [place] [address] [place] [id number] [place] [address] 65650- 6552 Apr, [place] [id number] [place] [address] 77748- 3199 Apr, [place] [address] [place] [id number] [place] [address] 25447- 6247 Mar, Generalized anxiety disorder F41.1 and Major depressive disorder, recurrent episode with anxious distress F33.9 [place] [id number] [place] [address] 25705- 6097 Mar, Generalized anxiety disorder F41.1 and Major depressive disorder, recurrent episode with anxious distress F33.9 [place] [address] [place] [id number] [place] [address] 26722- 6107 Mar, [facility] [address] [place] [id number] [place] [address] 06132- 1315 Mar, [facility] [address] [place] [id number] [place] [address] 43641- 0377 Mar, [facility] [address] 85684- 2386 Mar, Asthma J45.909 and Fibromyalgia M79.7 [place] [address] [place] [id number] [place] [address] 31057- 8762 Mar, Chronic kidney disease, stage 4 (severe) N18.4 ; Vitamin D deficiency E55.9 and Essential (primary) hypertension I10 [place] [address] [place] [id number] [place] [address] 07705- 4322 Feb, [place] [address] 15063- 2941 Feb, Dysuria R30.0 ; Mixed stress and urge urinary incontinence N39.46 ; Fibromyalgia M79.7 and Chronic kidney disease, stage IV (severe) N18.4 [place] [address] [place] [id number] [place] [address] 53617- 2459 Feb, Chronic kidney disease, stage 4 (severe) N18.4 [place] [address] [place] [id number] [place] [address] 37446- 6147 Feb, Chronic kidney disease, stage 4 (severe) N18.4 [place] [address] [place] [id number] [place] [address] 63845- 8151 Feb, [place] [address] [place] [id number] [place] [address] 10424- 2959 Feb, Vitamin D deficiency, unspecified E55.9 [place] [address] [place] [id number] [place] [address] 68912- 3363 Jan, [place] [address] [place] [address]- 4269 Jan, [facility] [id number] [place] [address] 81297- 1211 Dec, [facility] [address] [place] [id number] [place] [address] 77630- 2932 Dec, Chronic kidney disease, stage 4 (severe) N18.4 [facility] [address] [place] [id number] [place] [address] 75379- 8897 Dec, Dysthymic disorder F34.1 and Generalized anxiety disorder F41.1 [facility] [address] [place] [id number] [place] [address] 78782- 8133 Dec, [facility] [address] [place] [id number] [place] [address] 23881- 5009 Dec, [facility] [address] [place] [id number] [place] [address] 22229- 2702 Dec, Dysthymic disorder F34.1 and Generalized anxiety disorder F41.1 [facility] [id number] [place] [address] 93871- 4865 Dec, Dysuria R30.0 ; Chronic kidney disease, stage 4 (severe) N18.4 ; Hypertension I10 ; Dyspepsia R10.13 ; Yeast dermatitis B37.2 ; Palpitations R00.2 ; Hypothyroid E03.9 ; Functional diarrhea K59.1 and Other seasonal allergic rhinitis J30.2 [facility] [id number] [place] [address] 85148 -4867 Dec, [facility] [id number] [place] [address] 34157 -2775 Nov, Dysuria R30.0 and Stress incontinence N39.3 [facility] [id number] [place] [address] 93285- 7488 Nov, [facility] [id number] [place] [address] 27032- 4263 Nov, [place] [address] [place] [id number] [place] [address] 48525- 9332 Nov, Osteoarthritis of knees, bilateral M17.0 [place] [address] [address]- [address] Nov, Dysthymic disorder F34.1 and Generalized anxiety disorder F41.1 [place] [address] [address]- [address] Nov, [place] [address] [address]- [address] Nov, [place] [address] [address]- [address] Nov, Urgency of urination R39.15 [place] [address] [address]40[address]- [address] Nov, [place] [address] [address]- [address] Nov, Chronic kidney disease, stage 4 (severe) N18.[address] [address]- [address] Oct, Hypertension I10 ; Coronary artery disease involving [place] coronary artery of [place] heart, angina presence unspecified I25.10 ; Palpitations R00.2 ; Hypothyroid E03.9 ; Right foot pain M79.671 ; Functional diarrhea K59.1 and Other seasonal allergic rhinitis J30.2 [place] [id number] [place] [address] 45365- 9818 Oct, Dysthymic disorder F34.1 and Generalized anxiety disorder F41.1 [place] [address] 827[address]- [address] Sep, [place] [id number] [place] [address] 94016- 0364 Sep, [place] [address] [address]- [address] Sep, [place] [id number] [place] [address] 16717- 0344 Sep, [place] [id number] [place] [address] 22013- 0688 Sep, [place] [id number] [place] [address] 92157- 5831 Sep, Dysthymic disorder F34.1 and Generalized anxiety disorder F41.1 [facility] [facility] [id number] [place] [address] 75895- 5568 16 Sep, 2015 Asthma with acute exacerbation in adult J45.901 ; Dysuria R30.0 ; Chronic kidney disease, stage 4 (severe) N18.4 and History of anemia Z86.2 [place] [id number] [place] [address] 10816- 7752 2015 Generalized anxiety disorder F41.1 and Dysthymic disorder F34.1 [facility] [id number] [place] [address] 87135- 0965 August, Screening breast examination Z12.39 and Acute recurrent maxillary sinusitis J01.01 [place] [id number] [place] [address] 99082- 7912 August, Osteoarthritis of knees, bilateral M17.0 [place] [id number] [place] [address] 39279- 7187 August, Chronic kidney disease, stage 4 (severe) N18.4 ; Acute non- recurrent maxillary sinusitis J01.00 ; Urinary problem R39.89 ; Bowel habit changes R19.4 ; Functional diarrhea K59.1 and History of colon polyps Z86.010 [facility] [id number] [place] [address] 62876- 6140 Jul, Dysthymic disorder F34.1 and Generalized anxiety disorder F41.1 [facility] [id number] [place] [address] 06393- 3140 Jul, [facility] [address] [address] 12[address] Jul, Dysthymic disorder F34.1 ; Generalized anxiety disorder F41.1 and ocean transportation intermediary use of drug Z79.899 [facility] [address] [address] 9676 Jul, [facility] [id number] [place] [address] 08917- 9475 Jun, [facility] [id number] [place] [address] 30672- 7051 Jun, [facility] [id number] [place] [address] 55448- 6617 May, [facility] [id number] [place] [address] 08647- 7540 May, Dysthymic disorder F34.1 and Generalized anxiety disorder F41.1 [facility] [id number] [place] [address] 37504- 2426 Apr, Kidney disease N28.9 [facility] [id number] [place] [address] 73155- 6273 Apr, Generalized anxiety disorder F41.1 and Dysthymic disorder F34.1 [facility] [address] [address] 1399 Apr, Chronic kidney disease, stage 4 (severe) N18.4 [facility] [address] [address]- 9154 Apr, Generalized anxiety disorder F41.1 ; Major depression, recurrent F33.9 and Sleep disturbance G47.9 [facility] [id number] [place] [address] 58547- 4669 Mar, Generalized anxiety disorder F41.1 and Dysthymic disorder F34.1 [facility] [id number] [place] [address] 98170- 0163 Mar, Generalized anxiety disorder F41.1 ; Dysthymic disorder F34.1 and Insomnia G47.00 [facility] [id number] [place] [address] 15465- 4770 Mar, [facility] [id number] [place] [address] 27399- 9675 Mar, [facility] [id number] [place] [address] 88842- 6997 Mar, Osteoarthritis of knees, bilateral M17.0 [facility] [id number] [place] [address] 71988- 7272 Mar, Hypertension I10 ; Hypothyroid E03.9 ; Dysthymic disorder F34.1 ; Chronic kidney disease, stage 4 (severe) N18.4 and Nausea & vomiting R11.2 [facility] [id number] [place] [address] 65807- 1745 Mar, Generalized anxiety disorder F41.1 ; Dysthymic disorder F34.1 and Insomnia G47.00 [facility] [id number] [place] [address] 44018- 0233 Mar, Dehydration E86.0 ; Chronic kidney disease, stage 4 (severe ) N18.4 and Nausea & vomiting R11.2 [facility] [id number] [place] [address] 95714 -5168 Mar, Gastroenteritis K52.9 [facility] [id number] [place] [address] 41294- 9275 Mar, [facility] [id number] [place] [address] 92076- 9993 Mar, [facility] [id number] [place] [address] 67518- 3985 Feb, Dysthymic disorder F34.1 and Generalized anxiety disorder F41.1 [facility] [id number] [place] [address] 92972- 3846 Jan, UTI (urinary tract infection) N39.0 ; Asthma J45.909 ; Coronary artery disease involving tat[place]k coronary artery of tatitlek heart, angina presence unspecified I25.10 ; Hypertension I10 ; Hypothyroid E03.9 ; Vitamin D deficiency E55.9 ; Insomnia G47.00 ; Palpitations R00.2 ; Depressed F32.9 ; Restless leg G25.81 and Anxiety F41.[address] 92259- 7851 Jan, Dysthymic disorder F34.1 and Generalized anxiety disorder F41.[address] 92678- 2555 Jan, [address] 24193- 3342 Dec, [address] 72697- 1853 Dec, Alkalosis 276.3 ; Chronic kidney disease, Stage IV (severe) 585.4 ; Hyperpotassemia 276.7 ; Secondary hyperparathyroidism, renal 588.81 ; Proteinuria 791.0 ; Unspecified vitamin D deficiency 268.9 ; Anemia in chronic kidney disease 285.21 ; Other and unspecified hyperlipidemia 272.4 ; Hypertension, essential, benign 401.1 and Chronic kidney disease (CKD), stage III (moderate) 585.3 [place] [facility] [id number] [place] [address] 18851- 0106 Dec, [facility] [id number] [place] [address] 17082- 3178 Dec, Depressive disorder, not elsewhere classified 311 and Generalized anxiety disorder 300.02 [place] [address] 07580- 7072 Dec, [facility] [id number] [place] [address] 47652- 0869 Dec, [facility] [facility] [address] 70646- 3324 Nov, Depressive disorder, not elsewhere classified 311 and Generalized anxiety disorder 300.02 [facility] [id number] [place] [address] 34143- 0410 Nov, Arthritis of both knees 716.96 [facility] [id number] [place] [address] 67082- 8024 Nov, PAF (paroxysmal atrial fibrillation) 427.31 ; CAD (coronary artery disease) 414.00 ; Chest pain 786.50 and Chronic kidney disease (CKD) stage G4/A1, severely decreased glomerular filtration rate (GFR) between 15-29 mL/min/1.73 square meter and albuminuria creatinine ratio less than 30 mg/g 585.[address] 81226- 4852 Oct, Coronary atherosclerosis of unspecified type of vessel, tatitlek or graft 414.00 ; Chronic kidney disease, Stage IV (severe) 585.4 ; Hypertension 401.9 and Edema 782.3 [place] [id number] [place] [address] 86871- 8923 Oct, Depressive disorder, not elsewhere classified 311 and Generalized anxiety disorder 300.02 [facility] [id number] [place] [address] 01799- 7978 Oct, Depressive disorder, not elsewhere classified 311 and Generalized anxiety disorder 300.02 [facility] [id number] [place] [address] 70786- 7409 Oct, [facility] [id number] [place] [address] 06262- 1094 Oct, [facility] [id number] [place] [address] 74478- 7340 Sep, [facility] [id number] [place] [address] 33655- 4235 Sep, Chronic kidney disease, Stage IV (severe) 585.4 [place] [id number] [place] [address] 18682- 5511 Sep, [facility] [id number] [place] [address] 59091- 5886 Sep, Coronary atherosclerosis of unspecified type of vessel, tatitlek or graft 414.00 ; Hypertension 401.9 ; Edema 782.3 and Hypothyroidism 244.9 [facility] [id number] [place] [address] 57586- 8014 Sep, Coronary atherosclerosis of unspecified type of vessel, tatitlek or graft 414.00 ; Hypertension 401.9 ; Fibromyalgia 729.1 ; Edema 782.3 ; Hypothyroidism 244.9 and Anemia 285.9 [facility] [id number] [place] [address] 69254- 2378 Sep, Anxiety disorder, unspecified 300.00 and Depressive disorder , not elsewhere classified 311 [facility] [id number] [place] [address] 86141- 4740 Sep, [facility] [address] 95804- 4444 August, Generalized anxiety disorder 300.02 [facility] [id number] [place] [address] 91709- 8598 August, Closed fracture of lateral malleolus 824.2 [facility] [id number] [place] [address] 50459- 0401 Jul, [facility] [id number] [place] [address] 73781- 6583 Jul, [facility] [id number] [place] [address] 56187- 9774 Jun, [facility] [id number] [place] [address] 47108- 7686 Jun, [facility] [id number] [place] [address] 46112- 9466 Jun, [facility] [id number] [place] [address] 47874- 4769 Jun, [facility] [id number] [place] [address] [place] [address]- 8458 Jun, 2014 [facility] [place] [facility] [address] [id number] [place] [address]- 6665 Jun, [facility] [place] [facility] [address] [id number] [place] [address]- 1796 May, 2014 [facility] [place] [facility] [address] [id number] [place] [address]- 3566 May, 2014 [facility] [place] [facility] [address] [id number] [place] [address]- 6489 May, 2014 [facility] [place] [facility] [address] [id number] [place] [address]- 8721 18 May, 2014 [facility] [place] [facility] [address] [id number] [place] [address]- 1480 16 May, 2014 [facility] [place] [facility] [address] [facility] [id number] [place] [address]- 4384 16 May, 2014 [facility] [place] [facility] [address] [id number] [place] [address]- 3721 13 May, 2014 [facility] [place] [facility] [id number] [address]- 2799 13 May, 2014 [facility] [place] [facility] [address] [facility] [id number] [place] [address]- 4823 10 May, 2014 [facility] [place] [facility] [address] [facility] [id number] [place] [address]- 7818 10 May, 2014 [facility] [place] [facility] [address] [id number] [place] [address]- 0925 Apr, [facility] [place] [facility] [address] [id number] [place] [address]- 8097 Apr, [facility] [place] [facility] [address] [facility] [id number] [place] [address]- 0514 Mar, [facility] [place] [facility] [address] [facility] [id number] [place] [address]- 1909 Mar, [facility] [place] [facility] [address] [id number] [place] [address]- 8543 Mar, [facility] [place] [facility] [address] [id number] [place] [address]- 0864 Mar, [facility] [place] [facility] [address] [id number] [place] [address]- 1707 Mar, [facility] [place] [facility] [address] [id number] [place] [address]- 3305 Mar, [facility] [place] [facility] [address] [id number] [place] [address]- 1844 Mar, [facility] [place] [facility] [address] [id number] [place] [address]- 8378 Feb, [facility] [place] [facility] [address] [id number] [place] [address]- 1675 Feb, [facility] [place] [facility] [address] [id number] [place] [address]- 1759 Feb, [facility] [place] [facility] [address] [id number] [place] [address]- 2109 Jan, [facility] [place] [facility] [address] [id number] [place] [address]- 5486 Jan, [facility] [place] [facility] [address] [id number] [address]- 5874 Jan, [facility] [place] [facility] [address] [id number], [place] [address]- 5483 20 Jan, 2014 [facility] [place] [facility] [address] [id number] [place] [address]- 9003 Jan, [facility] [place] [facility] [address] [id number] [place] [address]- 3532 Jan, [facility] [place] [facility] [address] [id number] [place] [address]- 1142 Jan, [facility] [place] [facility] [address] [id number] [place] [address]- 3011 Jan, [facility] [place] [facility] [address] [id number] [place] [address]- 4456 Jan, [facility] [place] [facility] [address] [id number] [place] 3925 Jan, [facility] [place] [facility] [address] [id number] [place] [address]- 4068 Nov, [facility] [place] [facility] [address] [id number] [place] [address]- 3202 Nov, [facility] [place] [facility] [address] [id number] [place] [address]- 5603 Nov, [facility] [place] [facility] [address] [id number] [place] [address]- 9584 Oct, [facility] [place] [facility] [address] [id number] [place] [address]- 2707 Oct, [facility] [place] [facility] [address] [id number] [place] [address]- 0869 Oct, [facility] [place] [facility] [address] [id number] [place] [address]- 6213 Oct, [facility] [place] [facility] [address] [id number] [place] [address]- 5360 Oct, [facility] [place] [facility] [address] [id number] [place] [address]- 2654 Oct, [facility] [place] [facility] [address] [id number] [place] [address]- 8341 Oct, [facility] [place] [facility] [address] [id number] [place] [address]- 9485 Oct, [facility] [place] [facility] [address] [id number] [place] [address]- 0013 Oct, [facility] [place] [facility] [address] [id number] [place] [address]- 1321 Sep, [facility] [place] [facility] [address] [id number] [place] [address]- 5743 Sep, [facility] [place] [facility] [address] [id number] [place] [address]- 2045 Sep, [facility] [place] [facility] [address] [id number] [place] [address]- 7911 Sep, [facility] [place] [facility] [address] [id number] [place] [address]- 0690 Sep, [facility] [place] [facility] [address] [id number] [place] [address]- 7882 Sep, [facility] [place] [facility] [address] [id number] [place] [address]- 4549 Sep, [facility] [place] [facility] [address] [id number] [place] [address]- 8941 Sep, [facility] [place] [facility] [address] [id number] [place] [address]- 7583 Sep, [facility] [place] [facility] [address] [id number] [place] [address]- 4179 August, [facility] [place] [facility] [address] [id number] [place] [address]- 8450 August, [facility] [place] [facility] [address] [id number] [place] [address]- 1902 August, [facility] [place] [facility] [address] [id number] [place] [address]- 4088 August, [facility] [place] [facility] [address] [id number] [place] [address]- 4168 August, [facility] [place] [facility] [address] [id number] [place] [address]- 8638 August, [facility] [place] [facility] [address] [id number] [place] [address]- 0668 Jul, [facility] [place] [facility] [address] [id number] [place] [address]- 4202 Jul, [facility] [place] [facility] [address] [id number] [place] [address]- 3004 Jul, [facility] [place] [facility] [address] [id number] [place] [address]- 2407 08 Jul, 2013 [facility] [place] [facility] [address] [facility] [id number] [place] [address]- 9658 Jul, [facility] [place] [facility] [address] [id number] [place] [address]- 0324 Jul, [facility] [place] [facility] [address] [id number] [place] [address]- 5629 Jun, [facility] [place] [facility] [address] [facility] [id number] [place] [address]- 0364 Jun, [facility] [place] [facility] [address] [facility] [id number] [place] [address]- 6293 May, [facility] [place] [facility] [address] [id number] [place] [address]- 6702 May, [facility] [place] [facility] [address] [id number] [place] [address]- 6976 May, [facility] [place] [facility] [address] [facility] [id number] [place] [address]- 9852 May, [facility] [place] [facility] [address] [facility] [id number] [place] [address]- 0824 Apr, [facility] [place] [facility] [address] [id number] [place] [address]- 8088 Apr, [facility] [place] [facility] [address] [id number] [place] [address]- 8040 Mar, [facility] [place] [facility] [address] [id number] [place] [address]- 3532 Mar, [facility] [place] [facility] [address] [facility] [id number] [place] [address]- 8814 17 Mar, 2013 [facility] [place] [facility] [address] [id number] [place] [address]- 4490 17 Mar, 2013 [facility] [place] [facility] [address] [id number] [place] [address]- 3291 05 Mar, 2013 [facility] [place] [facility] [address] [id number] [place] [address]- 2526 Mar, [facility] [place] [facility] [address] [id number] [place] [address]- 1328 Feb, [facility] [place] [facility] [address] [id number] [place] [address]- 9872 Feb, [facility] [place] [facility] [address] [id number] [place] [address]- 1848 Feb, [facility] [place] [facility] [address] [id number] [place] [address]- 4422 Feb, [facility] [place] [facility] [address] [id number] [place] [address]- 7446 Feb, [facility] [place] [facility] [address] [id number] [place] [address]- 7197 Feb, [facility] [place] [facility] [address] [id number] [place] [address]- 6738 Jan, [facility] [place] [facility] [address] [id number] [place] 7923 24 Jan, 2013 [facility] [place] [facility] [address] [id number] [place] [address]- 6824 Jan, [facility] [place] [facility] [address] [id number] [place] [address]- 7046 Jan, [facility] [place] [facility] [address] [id number] [place] [address]- 8856 08 Jan, 2013 [facility] [place] [facility] [address] [id number] [place] [address]- 2546 Jan, [facility] [place] [facility] [address] [id number] [place] [address]- 7649 Dec, [facility] [place] [facility] [address] [id number] [place] [address]- 4998 Dec, [facility] [place] [facility] [address] [id number] [place] [address]- 8170 Nov, [facility] [place] [facility] [address] [id number] [place] [address]- 8558 Nov, [facility] [place] [facility] [address] [id number] [place] [address]- 7235 Oct, [facility] [place] [facility] [address] [id number] [place] [address]- 6841 Oct, [facility] [place] [facility] [address] [id number] [place] [address]- 2250 Oct, [facility] [place] [facility] [address] [id number] [place] [address]- 3402 Oct, [facility] [place] [facility] [address] [id number] [place] [address]- 0714 Oct, [facility] [place] [facility] [address] [id number] [place] [address]- 2716 Oct, [facility] [place] [facility] [address] [id number] [place] [address]- 9221 Sep, [facility] [place] [facility] [address] [id number] [place] [address]- 0429 Sep, [facility] [place] [facility] [address] [id number] [place] [address]- 3730 Sep, [facility] [place] [facility] [address] [id number] [place] [address]- 2293 Sep, [facility] [place] [facility] [address] [id number] [place] [address]- 2803 August, [facility] [place] [facility] [address] [id number] [place] [address]- 6375 August, [facility] [place] [facility] [address] [id number] [place] [address] August, [facility] [address] [id number] [place] [address] August, [facility] [address] [id number] [place] [address] August, [facility] [address] [id number] [place] [address] Jul, [facility] [address] [id number] [place] [address] Jul, [facility] [address] [id number] [place] [address] Jul, [facility] [address] [id number] [place] [address] Jul, [facility] [address] [id number] [place] [address] Jul, [facility] [address] [id number] [place] [address] Jul, [facility] [address] [id number] [place] [address] Jul, [facility] [address] [id number] [place] [address] Jul, [facility] [address] [id number] [place] [address] Jul, [facility] [address] [id number] [place] [address] Jul, [facility] [address] [id number] [place] [id number] Jun, [facility] [place] [facility] [address] [id number] [place] [address] Jun, [facility] [place] [facility] [address] [id number] [place] [address] Jun, [facility] [place] [facility] [address] [id number] [place] [address] Jun, [facility] [address] [id number] [place] [address] Jun, [facility] [place] [facility] [address] [id number] [place] [address] May, [facility] [place] [facility] [address] [id number] [place] [address] 18 May, 2012 [facility] [place] [facility] [address] [id number] [place] [address] May, [facility] [place] [facility] [address] [id number] [place] [address] Apr, [facility] [address] [id number] [place] [address] Apr, [facility] [address] [id number] [place] [address] Apr, [facility] [address] [id number] [place] [address] Apr, [facility] [address] [id number] [place] [address] Apr, [facility] [address] [id number] [place] [address] Apr, [facility] [address] [id number] [place] [address] Mar, [facility] [place] [facility] [address] [id number] [place] [address] Mar, [facility] [place] [facility] [address] [id number] [place] [address] Mar, [facility] [place] [facility] [address] [id number] [place] [address] Mar, [facility] [place] [facility] [address] [id number] [place] [address] Feb, [facility] [place] [facility] [address] [id number] [place] [address] Feb, [facility] [place] [facility] [address] [id number] [place] [address] Feb, [facility] [place] [facility] [address] [facility] [id number] [place] [address] Feb, [facility] [place] [facility] [address] [id number], [place] [address] Feb, [facility] [place] [facility] [address] [id number] [place] [address] Feb, [facility] [place] [facility] [address] [id number], [place] [address] Feb, [facility] [place] [facility] [address] [facility] [id number], [place] [address] Feb, [facility] [place] [facility] [address] [id number], [place] [address] Feb, [facility] [place] [facility] [address] [id number], [place] [address] Feb, [facility] [place] [facility] [address] [facility] [id number], [place] [address] Feb, [facility] [place] [facility] [address] [id number], [place] [address] Feb, [facility] [place] [facility] [address] [id number], [place] [address] Feb, [facility] [place] [facility] [address] [id number], [place] [address] Feb, [facility] [place] [facility] [address] [id number], [place] [address] Feb, [facility] [place] [facility] [address] [facility] [id number], [place] [address] Feb, [facility] [place] [facility] [address] [id number] [place] [address] 31 Jan, 2011 [facility] [place] [facility] [address] [id number] [place] [address] 31 Jan, 2011 [facility] [place] [facility] [address] [id number] [place] [address] 31 Jan, 2011 [facility] [place] [facility] [address] [address] [id number] [place] [address] 31 Jan, 2011 [facility] [place] [facility] [address] [id number] [place] [address] 30 Jan, 2011 [facility] [place] [facility] [address] [id number] [place] [address] Jan, [facility] [place] [facility] [address] [id number] [place] [address] 25 Jan, 2012 [facility] [place] [facility] [address] [id number] [place] [address] 16 Jan, 2012 [facility] [place] [facility] [address] [id number] [place] [address] 16 Jan, 2012 [facility] [place] [facility] [address] [id number] [place] [address] 74[address] 15 Jan, 2012 [facility] [place] [facility] [address] [facility] [id number] [place] [address] 15 Jan, 2012 [facility] [place] [facility] [address] [id number] [place] [address] Jan, [facility] [place] [facility] [address] [id number] [place] [address] 26 Dec, 2011 [facility] [place] [facility] [address] [id number] [place] [address] 26 Sep, 2011 [facility] [place] [facility] [address] [id number] [place] [address] 26[address] 24 Sep, 2011 [facility] [place] [facility] [address] [id number] [place] [address] 58[address] 23 Sep, 2011 [facility] [place] [facility] [address] [id number] [place] [address]69 22 Sep, 2011 [facility] [place] [facility] [address] [id number] [place] [address] 1216 21 Dec, 2011 [facility] [place] [facility] [address] [id number] [place] [address] 9583 20 Dec, 2011 [facility] [place] [facility] [address] [id number] [place] [address] 9716 20 Sep, 2011 [facility] [place] [facility] [address] [id number] [place] [address] 07 Sep, 2011 [facility] [place] [facility] [address] [id number] [place] [address] 29[address] 06 Sep, 2011 [facility] [place] [facility] [address] [id number] [place] [address] 06 Sep, 2011 [facility] [place] [facility] [address] [id number] [place] [address] 05 Dec, 2011 [facility] [place] [facility] [address] [id number] [place] [address] 23 Nov, 2011 [facility] [place] [facility] [address] [id number] [place] [address] 9523 17 Nov, 2011 [facility] [place] [facility] [address] [id number] [place] [address] 9947 13 Nov, 2011 [facility] [place] [facility] [address] [id number] [place] [address] 4712 10 Nov, 2011 [facility] [place] [facility] [address] [id number] [place] [address] 4786 08 Nov, 2011 [facility] [place] [facility] [address] [id number] [place] [address] 07 Nov, 2011 [facility] [place] [facility] [address] [id number] [place] [address] 02 Nov, 2011 [facility] [place] [facility] [address] [id number] [place] [address] Nov, [facility] [place] [facility] [address] [id number] [place] [address] Oct, [facility] [place] [facility] [address] [id number] [place] [address] 9766 Oct, [facility] [place] [facility] [address] [id number] [place] [address] 6965 Oct, [facility] [place] [facility] [address] [id number] [place] [address] Oct, [facility] [place] [facility] [address] [id number] [place] [address] 7787 Oct, [facility] [place] [facility] [address] [id number] [place] [address] 3599 Oct, [facility] [place] [facility] [address] [id number] [place] [address] 9445 Oct, [facility] [place] [facility] [address] [id number] [place] [address] 85[address] Sep, [facility] [place] [facility] [address] [id number] [place] [address] 1731 Sep, [facility] [place] [facility] [address] [id number] [place] [address] 77[address] August, [facility] [place] [facility] [address] [id number] [place] [address] 9068 August, [facility] [place] [facility] [address] [id number] [place] [address]397 August, [facility] [place] [facility] [address] [id number] [place] [address]378 August, [facility] [place] [facility] [address] [id number] [place] [address] 406[address] Jul, [facility] [place] [facility] [address] [id number] [place] [address] Jul, [facility] [place] [facility] [address] [id number] [place] [address] 9474 06 Jul, 2011 [facility] [address] [id number] [place] [address] Jul, [facility] [place] [facility] [address] [id number] [place] [address]706 Jul, [facility] [address] [id number] [place] [address]- 0616 Jul, [facility] [address] [id number] [place] [address] 7063 Jul, [facility] [address] [id number] [place] [address] 70[address] Jul, [facility] [address] [id number] [place] [address] 0643 Jul, [facility] [address] [id number] [place] [address] 9234 Jun, [facility] [address] [id number] [place] [address] 6978 Jun, [facility] [address] [id number] [place] [address] 9869 15 Jun, 2011 [facility] [address] [id number] [place] [address]- 7774 14 Jun, 2011 [facility] [address] [id number] [place] [address] 9592 Jun, [facility] [address] [id number] [place] [address] 4925 Jun, [facility] [place] [facility] [address] [id number] [place] [address] 7357 Jun, [facility] [address] [id number] [place] [address] 2076 May, [facility] [place] [facility] [address] [id number] [place] [address] 2499 May, [facility] [place] [facility] [address] [id number] [place] [address] 4704 May, [facility] [place] [facility] [address] [id number] [place] [address]- 6066 May, [facility] [place] [facility] [address] [id number] [place] [address]- 6646 May, [facility] [place] [facility] [address] [id number] [place] [address]- 7871 Apr, [facility] [place] [facility] [address] [id number] [place] [address]- 8335 Apr, [facility] [place] [facility] [address] [id number] [place] [address]- 2431 Apr, [facility] [place] [facility] [address] [id number] [place] [address]- 0499 Apr, [facility] [place] [facility] [address] [id number] [place] [address]- 1073 Apr, [facility] [place] [facility] [address] [id number] [place] [address]- 9646 Mar, [facility] [place] [facility] [address] [id number] [place] [address]- 0544 Mar, [facility] [place] [facility] [address] [id number] [place] [address]- 6933 Mar, [facility] [place] [facility] [address] [id number] [place] [address]- 3962 Mar, [facility] [place] [facility] [address] [id number] [place] [address]- 9886 Mar, [facility] [place] [facility] [address] [id number] [place] [address]- 8540 Mar, [facility] [place] [facility] [address] [id number] [place] [address]- 9746 Mar, [facility] [place] [facility] [address] [id number] [place] [address]- 8878 11 Feb, 2011 [facility] [address] [id number] [place] [address]- 7756 Feb, [facility] [place] [facility] [address] [id number] [place] [address] Feb, [facility] [place] [facility] [address] [id number] [place] [address]- 0921 Feb, [facility] [place] [facility] [address] [id number] [place] [address]- 4912 Jan, [facility] [place] [facility] [address] [id number] [place] [address]- 4782 Jan, [facility] [place] [facility] [address] [id number] [place] [address]- 8444 Jan, [facility] [address] [id number] [place] [address]- 7064 Jan, [facility] [place] [facility] [address] [id number] [place] [address]- 5696 Nov, [facility] [place] [facility] [address] [id number] [place] [address]- 8149 Mar, [facility] [place] [facility] [address] [id number] [place] [address]- 2479 Mar, [facility] [place] [facility] [address] [id number] [place] [address] 2546 Mar, [facility] [place] [facility] [address] [id number] [place] [address]- 1187 Mar, [facility] [place] [facility] [address] [id number] [place] [address]- 7786 Mar, [facility] [place] [facility] [address] [id number] [place] [address]- 3879 Mar, [facility] [place] [facility] [address] [id number] [place] [address]- 2948 Feb, [facility] [address] [facility] [id number] [address] Feb, [facility] [address] [facility] [id number], [place] [address] 116[address] Jan, [facility] [address] [facility] [id number], [place] [address] 74[address] Jan, [facility] [address] [facility] [id number], [place] [address] 7060 Jan, IMMUNIZATIONS No Known Immunizations SOCIAL HISTORY Never Assessed REASON FOR VISIT Blood Pressure-[facility] PLAN OF CARE Activity Details Follow Up pending lab Reason: VITAL SIGNS Height 63 in 2017-07-12 Weight 202.5 lbs 2017-07-12 Temperature 98.4 degrees Fahrenheit 2017-07-12 Heart Rate 66 bpm 2017-07-12 Respiratory Rate 20 2017-07-12 BMI 35.87 kg/m2 2017-07-12 Blood pressure systolic 110 mmHg 2017-07-12 Blood pressure diastolic 58 mmHg 2017-07-12 MEDICATIONS Medication Instructions Dosage Frequency Start Date End Date Duration Status Toprol XL 50 mg 1 tablet 24h Active Cymbalta 60 MG TAKE ONE CAPSULE BY MOUTH ONCE DAILY 30 Active Aspirin 325 MG Orally Once a day 1 tablet 24h Active Nystatin 231935 UNIT/GM Externally Twice a day 1 application to thighs as needed 12h 19 Sep, 2016 5 Active Fluticasone Propionate 50 MCG/ACT USE ONE SPRAY IN EACH NOSTRIL TWICE DAILY Active Requip 4 MG TAKE TWO TABLETS BY MOUTH 1 TO 3 HOURS BEFORE BEDTIME 30 Active Losartan Potassium 100 MG Orally Once a day 1 tablet 24h Active Topamax 100 MG Orally Twice a day 1 tablet 12h Active Fish Oil 1200 MG Orally Once a day at hs 1 capsule Active ProAir HFA 108 (90 Base) MCG/ACT 1 puff Active Vitamin C 1000 MG Orally Once a day 1 tablet 24h Active Tramadol HCl 50 MG Orally every 6 hrs 1 tablet as needed 6h Active Ipratropium [place] 0.03 % Nasally Three times a day prn drainage 1-2 sprays in each nostril as needed Active Gemfibrozil 600 MG Orally Twice a day 1 tablet 12h 30 Active Lyrica 150 MG Orally 2 times a day 1 capsule 12h Active Pantoprazole Sodium 40 MG TAKE ONE TABLET BY MOUTH ONCE DAILY 30 Active Nystatin 876907 UNIT/ML Mouth/Throat Four times a day 4 ml 6h Active Symbicort 80-4.5 MCG/ACT INHALE TWO PUFFS BY MOUTH TWICE DAILY. 25 Active Fiber Complete - Active Synthroid 150 MCG TAKE 1 TABLET BY MOUTH ONCE DAILY 30 Active Vitamin D (Ergocalciferol) 85145 UNIT Orally once weekly 1 capsule Active Ferrous Sulfate 325 (65 Fe) MG Orally 3 times a day 1 tablet 8h Active RESULTS No Results PROCEDURES Procedure Date Ordered Result Body Site LAB NOT BILLED BY [facility] July 12, 2017 X-RAY EXAM CHEST 2 VIEWS July 12, 2017 [facility] VISIT ESTABLISHED PATIENT July 12, 2017 VENIPUNCT, ROUTINE* July 12, 2017 INSTRUCTIONS MEDICATIONS ADMINISTERED No Known [...] 2020 & 2007 Surgical History Bladder surgery [facility] 03/2016 Hospitalization History Surgeries Only Hospitalization History 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
--- OUTSIDE RECORDS SUMMARY | 2018-05-29 08:56 | XMS REPORT ---
Author Author ISABEL AME [facility] Address [address] [place] [address] Care Team Providers Care Classifier Tender Name Role Phone ISABEL MAE Unavailable PROBLEMS Type Condition ICD9-CM Code IAA36-XU Code Onset Dates Condition Status SNOMED Code Problem Long-term use of high-risk medication Z79.899 Active 639175639 Problem Abnormal chest CT R93.8 Active 736505107 Problem Generalized anxiety disorder F41.1 Active 25571935 Problem Low back pain M54.5 Active 963001450 Problem Dysthymic disorder F34.1 Active 47461703 Problem Depressed F32.9 Active 15157239 Problem Coronary artery disease involving [place] coronary artery of [place] heart, angina presence unspecified I25.10 Active 1765566457511 Problem Hypothyroid E03.9 Active 66785706 Problem Insomnia G47.00 Active 418290825 Problem Vitamin D deficiency E55.9 Active 59368586 Problem Asthma J45.909 Active 044370583 Problem Chronic kidney disease, unspecified N18.9 Active 750200428 Problem Palpitations R00.2 Active 95916883 Problem Anemia in chronic kidney disease D63.1 Active [id number] Problem Primary osteoarthritis of left knee M17.12 Active 422502291 Problem Bipolar disorder, current episode manic without psychotic features F31.10 Active 254106329 Problem Restless leg syndrome G25.81 Active 20119629 Problem Seasonal allergic rhinitis due to pollen J30.1 Active 79699660 Problem Functional diarrhea K59.1 Active 10571748 Problem Chronic kidney disease, stage 4 (severe) N18.4 Active 541202842 Problem Restless leg G25.81 Active 12169662 Problem Mood disorder F39 Active 15393446 Problem Degenerative tear of medial meniscus of left knee M23.204 Active 940682850 Problem Body mass index (BMI) of 40.0-44.9 in adult Z68.41 Active 774265314 Problem Stage 3 chronic kidney disease N18.3 Active 975301629 Problem Asthma with acute exacerbation in adult J45.901 Active 119779065 Problem Other seasonal allergic rhinitis J30.2 Active 903955902 Problem History of colon polyps Z86.010 Active 037116577 Problem History of anemia Z86.2 Active 424959134 Problem Fibromyalgia M79.7 Active 593541604 Problem Essential (primary) hypertension I10 Active 93538051 Problem Hypokalemia E87.6 Active 65874340 Problem Mixed stress and urge urinary incontinence N39.46 Active 814827908 ALLERGIES No Information ENCOUNTERS Encounter Location Date Diagnosis [place] [address] [address] Nov, [place] [address] 33170- 9678 Oct, Generalized anxiety disorder F41.1 and Major depressive disorder, recurrent episode with anxious distress F33.9 [place] [address] 43137- 6724 Oct, [place] [address] 56478- 5193 Oct, Fibromyalgia M79.7 [place] [address] 38538- 0863 Sep, Restless leg syndrome G25.81 and Restless leg G25.81 [place] [address] [place] [id number] [place] [address] 04379- 9305 Sep, [place] [address] [address]- [address] Sep, Seasonal allergic rhinitis due to pollen J30.1 ; Screening for breast cancer Z12.31 ; Chest pain at rest R07.9 ; Restless leg syndrome G25.81 ; Essential (primary) hypertension I10 and Depressed F32.9 [place] [address] [place] [id number] [place] [address] 51271- 2234 August, Fibromyalgia M79.7 [place] [address] [place] [address] August, [facility] [address] [place] [id number] [place] [address] 15871- 9341 August, [facility] [address] [place] [id number] [place] [address] 56145- [address] August, [address] R93.8 [place] [address] [place] [id number] [place] [address] 31597- 3158 August, Generalized anxiety disorder F41.1 and Major depressive disorder, recurrent episode with anxious distress F33.9 [place] [address] [place] [id number] [place] [address] 40078- [address] August, [address] R93.8 [place] [address] [place] [id number] [place] [address] 20500- 1902 Jul, [place] [address] [place] [id number] [place] [address] 11213- 1710 Jul, Chronic kidney disease, stage 4 (severe) N18.4 [place] [address] [place] [id number] [place] [address] 26082- 1744 Jul, [place] [address] [place] [id number] [place] [address] 53511- 6046 Jul, Restless leg G25.81 ; Mixed stress and urge urinary incontinence N39.46 and Fibromyalgia M79.7 [place] [address] [place] [id number] [place] [address] 57701- 3920 Jul, Chronic kidney disease, stage 4 (severe) N18.4 [place] [address] [place] [id number] [place] [address] 87341- 6083 Jun, Orthostatic hypotension I95.1 ; Chronic kidney disease, stage 4 (severe) N18.4 ; Chest wall discomfort R07.89 and Body mass index (BMI) of 40.0-44.9 in adult Z68.41 [place] [address] [place] [id number] [place] [address] 93042- 0417 Jun, [facility] [id number] [place] [address] 75175- 7768 Jun, Orthostatic hypotension I95.1 [facility] [address] [place] [id number] [place] [address] 43171- 2103 Jun, [facility] [address] [place] [id number] [place] [address] 82797 -0688 Jun, Orthostatic hypotension I95.1 ; Dysuria R30.0 and Acute cystitis without hematuria N30.00 [facility] [address] [place] [id number] [place] [address] 86363- 5902 Jun, [facility] [address] [place] [id number] [place] [address] 53080- 8355 Jun, Chronic kidney disease, stage 4 (severe) N18.4 [facility] [address] [place] [id number] [place] [address] 05620- 1853 Jun, Fibromyalgia M79.7 [facility] [address] [place] [id number] [place] [address] 71852- 8333 Jun, [facility] [address] [place] [id number] [place] [address] 60293- 2134 Jun, [facility] [address] [place] [id number] [place] [address] 63745- [address] May, [address] R93.8 and Stage 3 chronic kidney disease N18.3 [facility] [address] [place] [id number] [place] [address] 00425- 9319 May, Chronic kidney disease, stage 4 (severe) N18.4 [facility] [address] [place] [id number] [place] [address] 94994- 0032 May, Chronic kidney disease, stage 4 (severe) N18.4 [facility] [address] [place] [id number] [place] [address] 59902- [address] May, [address] R93.8 [facility] [address] [address] 4[address] May, [facility] [address] [address] 5[address] May, [facility] [address] [address] 2899 May, Generalized anxiety disorder F41.1 and Major depressive disorder, recurrent episode with anxious distress F33.9 [facility] [address] [address]- 5184 May, Mood disorder F39 [facility] [id number] [place] [address] 68407- 9870 Apr, [facility] [address] [address] 5908 Apr, Infected skin lesion L08.9 and Muscle strain of right shoulder region, initial encounter S46.911A [facility] [address] [address] 7278 Apr, Generalized anxiety disorder F41.1 and Major depressive disorder, recurrent episode with anxious distress F33.9 [facility] [address] [address]- 8688 Apr, [facility] [address] [address]- 4165 Apr, Recent urinary tract infection Z87.440 and Hypothyroid E03.9 [facility] [address] [address]- 0116 Apr, Generalized anxiety disorder F41.1 and Major depressive disorder, recurrent episode with anxious distress F33.9 [facility] [address] [address]- 4424 Apr, Recent urinary tract infection Z87.440 [facility] [address] [address]- 8397 Mar, [facility] [address] [address] Mar, Dysuria R30.0 ; Acute cystitis without hematuria N30.00 and BMI 40.0-44.9, adult Z68.41 [facility] [address] [address]- 7000 14 Mar, 2017 [place] [address] [place] [id number] [place] [address] 10461- 9129 Mar, [facility] [address] [place] [id number] [place] [address] 20483- 9741 Mar, Generalized anxiety disorder F41.1 and Major depressive disorder, recurrent episode with anxious distress F33.9 [place] [id number] [place] [address] 39164- 2066 Feb, Conjunctivitis, bacterial H10.9 [place] [address] [place] [id number] [place] [address] 15010- 1541 Feb, [facility] [address] [place] [id number] [place] [address] 51809 -8642 Feb, Conjunctivitis, bacterial H10.9 [place] [id number] [place] [address] 52306- 1201 Feb, [facility] [address] [address] Feb, Dysuria R30.0 ; Acute cystitis N30.00 and BMI 40.0-44.9, adult Z68.41 [place] [id number] [place] [address] 55209- 6170 Feb, [place] [address] [place] [id number] [place] [address] 79959- 7706 Feb, Generalized anxiety disorder F41.1 and Major depressive disorder, recurrent episode with anxious distress F33.9 [place] [id number] [place] [address] 84592- 7184 Feb, Mood disorder F39 and BMI 40.0-44.9, adult Z68.41 [facility] [address] [place] [id number] [place] [address] 77142- 1051 Jan, [facility] [address] [place] [id number] [place] [address] 80266- 6713 Jan, [facility] [address] [place] [id number] [place] [address] 58873- 6985 Jan, Hypothyroid E03.9 [facility] [address] [place] [id number] [place] [address] 40239- 8300 Jan, [place] [address] [place] [id number] [place] [address] 73908- 2889 Jan, Chronic kidney disease, unspecified N18.9 ; Hypokalemia E87.6 ; Essential (primary) hypertension I10 ; Fibromyalgia M79.7 ; Coronary artery disease involving [place] coronary artery of [place] heart, angina presence unspecified I25.10 ; Hypothyroid E03.9 and Encounter for immunization Z23 [facility] [address] [place] [id number] [place] [address] 97784- 7001 Jan, Hypothyroid E03.9 [place] [address] [place] [id number] [place] [address] 66737- 5773 Jan, [facility] [address] [place] [id number] [place] [address] 29320- 4453 Dec, Vitamin D deficiency E55.9 [facility] [address] [place] [id number] [place] [address] 47213- 8786 Dec, Primary osteoarthritis of left knee M17.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 [facility] [address] [place] [id number] [place] [address] 37123- 0617 Dec, Fibromyalgia M79.7 [facility] [address] [place] [id number] [place] [address] 61865- 3714 18 Dec, 2016 Mood disorder F39 [facility] [address] [place] [address]- 2781 13 Dec, 2016 [facility] [address] [facility] [id number] [address]- 4299 13 Dec, 2016 Generalized anxiety disorder F41.1 and Major depressive disorder, recurrent episode with anxious distress F33.9 [facility] [address] [address]- 2775 11 Dec, 2016 [facility] [address] [address]- 1777 08 Dec, 2016 Streptococcal meningitis G00.2 [facility] [id number] [place] [address] 68329- 5280 07 Dec, 2016 Streptococcal meningitis G00.2 [facility] [address] [address]- 8381 07 Dec, 2016 [facility] [id number] [place] [address] 22298- 9953 06 Dec, 2016 Streptococcal meningitis G00.2 [facility] [address] [address]- 1087 06 Dec, 2016 [facility] [id number] [place] [address] 90014- 1407 06 Dec, 2016 Major depressive disorder, recurrent episode with anxious distress F33.9 [facility] [address], [place] [address]- 5174 Nov, Fever, unspecified fever cause R50.9 [facility] [address] [address]- 5754 24 Nov, 2016 [facility] [id number] [place] [address] 68637- 3262 16 Nov, 2016 Hypothyroid E03.9 [facility] [address] [place] [id number] [address]- 0190 10 Nov, 2016 Generalized anxiety disorder F41.1 and Major depressive disorder, recurrent episode with anxious distress F33.9 [facility] [address], [place] [address]- 0451 Nov, [facility] [address] [address] Oct, Dental examination Z01.20 [facility] [id number] [place] [address] 89646- 8835 Oct, Generalized anxiety disorder F41.1 and Major depressive disorder, recurrent episode with anxious distress F33.9 [facility] [id number] [place] [address] 34975- 4436 Oct, Chronic kidney disease, stage 4 (severe) N18.4 [facility] [address] [place] [id number] [place] [address] 48057- 1391 Oct, [place] [address] [place] [id number] [place] [address] 64112- 6012 Oct, Fibromyalgia M79.7 [facility] [id number] [place] [address] 73320- 1206 Oct, [facility] [address] [place] [id number] [place] [address] 81696- 7841 Oct, Generalized anxiety disorder F41.1 ; Major depressive disorder, recurrent episode with anxious distress F33.9 and Bipolar disorder, current episode manic without psychotic features F31.10 [place] [address] [address]- 6694 Sep, [facility] [id number] [place] [address] 17689- 2549 Sep, [facility] [id number] [place] [address] 84491- 4720 Sep, Vitamin D deficiency E55.9 [facility] [address] [address]- 254 14 Sep, 2016 Vitamin D deficiency E55.9 [facility] [id number] [place] [address] 60534424- 3831 Sep, [place] [id number] [place] [address] 92406- 9870 Sep, Chronic kidney disease, stage 4 (severe) N18.4 ; Hypothyroid E03.9 ; Restless leg G25.81 ; Fibromyalgia M79.7 ; Essential ( primary) hypertension I10 ; Vitamin D deficiency E55.9 ; Dyspepsia R10.13 ; Anemia in chronic kidney disease D63.1 ; Chronic kidney disease, unspecified N18.9 ; Coronary artery disease involving [place] coronary artery of [place] heart , angina presence unspecified I25.10 ; Screening breast examination Z12.39 and Low back pain M54.5 [place] [address] 68486- 2116 August, Generalized anxiety disorder F41.1 and Major depressive disorder, recurrent episode with anxious distress F33.9 [place] [address] [place] [id number] [place] [address] 24843- 8969 August, Generalized anxiety disorder F41.1 and Major depressive disorder, recurrent episode with anxious distress F33.9 [place] [address] [place] [id number] [place] [address] 25171- 1279 August, Fibromyalgia M79.7 [place] [address] [place] [id number] [place] [address] 45693- 5953 Jul, Generalized anxiety disorder F41.1 and Major depressive disorder, recurrent episode with anxious distress F33.9 [place] [address] [place] [id number] [place] [address] 72626- 0804 Jul, Fibromyalgia M79.7 [place] [address] [place] [id number] [place] [address] 06751- 2875 Jul, Generalized anxiety disorder F41.1 [place] [address] [place] [id number] [place] [address] 40164- 0342 May, [place] [address] [place] [id number] [place] [address] 17367- 7528 May, Hypothyroid E03.9 [place] [address] [address]- 6469 08 May, 2016 Chronic kidney disease, stage 4 (severe) N18.4 ; Hypothyroid E03.9 ; Restless leg G25.81 ; Fibromyalgia M79.7 ; Essential ( primary) hypertension I10 ; Vitamin D deficiency E55.9 ; Dyspepsia R10.13 ; Acute non-recurrent maxillary sinusitis J01.00 ; Anemia in chronic kidney disease D63.1 ; Chronic kidney disease, unspecified N18.9 and Coronary artery disease involving [place] coronary artery of [place] heart, angina presence unspecified I25.10 [place] [address] [place] [id number] [place] [address] 62412- 9740 May, Vitamin D deficiency, unspecified E55.9 [place] [address] [place] [id number] [place] [address] 81556- 3582 May, Generalized anxiety disorder F41.1 and Major depressive disorder, recurrent episode with anxious distress F33.9 [place] [address] [place] [id number] [place] [address] 73635- 0493 Apr, Pain in right knee M25.561 and Pain in left knee M25.562 [place] [address] [place] [id number] [place] [address] 76887- 4067 Apr, [place] [address] [place] [id number] [place] [address] 16324- 0421 Apr, [place] [address] [place] [id number] [place] [address] 33482- 8729 Apr, [place] [address] [place] [id number] [place] [address] 37627- 1541 Mar, Generalized anxiety disorder F41.1 and Major depressive disorder, recurrent episode with anxious distress F33.9 [place] [address] [place] [id number] [place] [address] 51146- 5257 Mar, Generalized anxiety disorder F41.1 and Major depressive disorder, recurrent episode with anxious distress F33.9 [place] [address] [place] [address] [place] [address]- 7398 Mar, [facility] [address] [place] [id number] [place] [address] 60281- 7053 Mar, [facility] [address] [place] [id number] [place] [address] 49760- 8801 Mar, [facility] [address] 95386- 1428 Mar, Asthma J45.909 and Fibromyalgia M79.7 [facility] [address] 70368- 7289 Mar, Chronic kidney disease, stage 4 (severe) N18.4 ; Vitamin D deficiency E55.9 and Essential (primary) hypertension I10 [place] [address] [place] [id number] [place] [address] 83846- 7741 Feb, [facility] [address] 49749- 5138 Feb, Dysuria R30.0 ; Mixed stress and urge urinary incontinence N39.46 ; Fibromyalgia M79.7 and Chronic kidney disease, stage IV (severe) N18.4 [place] [address] [place] [id number] [place] [address] 20952- 3284 Feb, Chronic kidney disease, stage 4 (severe) N18.4 [place] [address] [place] [id number] [place] [address] 22840- 9561 Feb, Chronic kidney disease, stage 4 (severe) N18.4 [facility] [address] [place] [id number] [place] [address] 86178- 3265 Feb, [facility] [address] 18647- 1528 Feb, Vitamin D deficiency, unspecified E55.9 [facility] [address] [place] [id number] [place] [address] 95233- 2687 Jan, [facility] [address] [place] [address]- 7788 Jan, [facility] [address] [place] [id number] [place] [address] 00518- 2159 Dec, [facility] [address] [place] [id number] [place] [address] 27952- 3683 Dec, Chronic kidney disease, stage 4 (severe) N18.4 [facility] [address] [place] [id number] [place] [address] 48897- 0334 Dec, Dysthymic disorder F34.1 and Generalized anxiety disorder F41.1 [facility] [address] [place] [id number] [place] [address] 03078- 4161 Dec, [facility] [address] [place] [id number] [place] [address] 83086- 8258 Dec, [facility] [address] [place] [id number] [place] [address] 74368- 6311 Dec, Dysthymic disorder F34.1 and Generalized anxiety disorder F41.1 [facility] [address] [place] [id number] [place] [address] 56864- 2173 Dec, Dysuria R30.0 ; Chronic kidney disease, stage 4 (severe) N18.4 ; Hypertension I10 ; Dyspepsia R10.13 ; Yeast dermatitis B37.2 ; Palpitations R00.2 ; Hypothyroid E03.9 ; Functional diarrhea K59.1 and Other seasonal allergic rhinitis J30.2 [facility] [id number] [place] [address] 40568 -3564 Dec, [facility] [id number] [place] [address] 00818 -5845 Nov, Dysuria R30.0 and Stress incontinence N39.3 [facility] [id number] [place] [address] 91413- 0034 Nov, [facility] [address] [place] [id number] [place] [address] 96038- 4834 Nov, [place] [address] [place] [id number] [place] [address] [id number]- 5080 Nov, Osteoarthritis of knees, bilateral M17.0 [place] [address] [address]- [address] Nov, Dysthymic disorder F34.1 and Generalized anxiety disorder F41.1 [place] [address] [address]- [address] Nov, [place] [address] 71936- [address] Nov, [place] [address] 10141- [address]95 Nov, Urgency of urination R39.15 [place] [address] 4[address]- [address] Nov, [place] [address] 95[address]- [address]160 Nov, Chronic kidney disease, stage 4 (severe) N18.4 [place] [address] [address]- [address] Oct, Hypertension I10 ; Coronary artery disease involving [place] coronary artery of [place] heart, angina presence unspecified I25.10 ; Palpitations R00.2 ; Hypothyroid E03.9 ; Right foot pain M79.671 ; Functional diarrhea K59.1 and Other seasonal allergic rhinitis J30.2 [place] [id number] [place] [address] 94072- 0251 Oct, Dysthymic disorder F34.1 and Generalized anxiety disorder F41.1 [place] [address] 68184- [address]68 Sep, [place] [address] [id number] [place] [address] [id number]- 6807 Sep, [place] [address] 828[address]- [address] Sep, [place] [id number] [place] [address] 30699- 4804 Sep, [place] [address] [id number] [place] [address] 76892- 4851 Sep, [place] [id number] [place] [address] 17604- 8743 Sep, Dysthymic disorder F34.1 and Generalized anxiety disorder F41.1 [place] [id number] [place] [address] 48948- 4488 16 Sep, 2015 Asthma with acute exacerbation in adult J45.901 ; Dysuria R30.0 ; Chronic kidney disease, stage 4 (severe) N18.4 and History of anemia Z86.2 [address] [address] [id number] [place] [address] 79343- 9772 Sep, Generalized anxiety disorder F41.1 and Dysthymic disorder F34.1 [place] [id number] [place] [address] 97914- 4560 August, Screening breast examination Z12.39 and Acute recurrent maxillary sinusitis J01.01 [address] [address] [id number] [place] [address] 49531- 0222 August, Osteoarthritis of knees, bilateral M17.0 [address] [address] [id number] [place] [address] 17176- 7872 August, Chronic kidney disease, stage 4 (severe) N18.4 ; Acute non- recurrent maxillary sinusitis J01.00 ; Urinary problem R39.89 ; Bowel habit changes R19.4 ; Functional diarrhea K59.1 and History of colon polyps Z86.010 [place] [id number] [place] [address] 83604- 6091 Jul, Dysthymic disorder F34.1 and Generalized anxiety disorder F41.1 [place] [id number] [place] [address] 03552- 8168 Jul, [facility] [address] [address] 1433 Jul, Dysthymic disorder F34.1 ; Generalized anxiety disorder F41.1 and USP use of drug Z79.899 [facility] [address] [address] 9644 13 Jul, 2015 [facility] [id number] [place] [address] 90186- 9440 16 Jun, 2015 [facility] [id number] [place] [address] 65413- 4599 Jun, [place] [id number] [place] [address] 46902- 9682 May, [place] [id number] [place] [address] 79489- 2081 May, Dysthymic disorder F34.1 and Generalized anxiety disorder F41.1 [place] [id number] [place] [address] 04623- 7509 Apr, Kidney disease N28.9 [place] [id number] [place] [address] 24847- 3438 Apr, Dysthymic disorder F34.1 and Generalized anxiety disorder F41.1 [place] [address] [address] 9506 Apr, Chronic kidney disease, stage 4 (severe) N18.4 [facility] [address] [address] 3548 Apr, Generalized anxiety disorder F41.1 ; Major depression, recurrent F33.9 and Sleep disturbance G47.9 [place] [id number] [place] [address] 88505- 3967 Mar, Generalized anxiety disorder F41.1 and Dysthymic disorder F34.1 [place] [id number] [place] [address] 33706- 2615 Mar, Generalized anxiety disorder F41.1 ; Dysthymic disorder F34.1 and Insomnia G47.00 [facility] [id number] [place] [address] 03553- 9851 Mar, [facility] [id number] [place] [address] 55561- 8534 Mar, [facility] [address] 11732- 2460 Mar, Osteoarthritis of knees, bilateral M17.0 [facility] [id number] [place] [address] 69109- 5260 Mar, Hypertension I10 ; Hypothyroid E03.9 ; Dysthymic disorder F34.1 ; Chronic kidney disease, stage 4 (severe) N18.4 and Nausea & vomiting R11.2 [facility] [id number] [place] [address] 25799- 0902 Mar, Generalized anxiety disorder F41.1 ; Dysthymic disorder F34.1 and Insomnia G47.00 [facility] [id number] [place] [address] 83988- 0020 Mar, Dehydration E86.0 ; Chronic kidney disease, stage 4 (severe ) N18.4 and Nausea & vomiting R11.2 [facility] [id number] [place] [address] 83189 -4437 Mar, Gastroenteritis K52.9 [facility] [id number] [place] [address] 01397- 1078 Mar, [facility] [id number] [place] [address] 76318- 5033 Mar, [facility] [id number] [place] [address] 88218- 4010 Feb, Dysthymic disorder F34.1 and Generalized anxiety disorder F41.1 [facility] [id number] [place] [address] 06781- 5891 Jan, UTI (urinary tract infection) N39.0 ; Asthma J45.909 ; Coronary artery disease involving [place] coronary artery of [place] heart, angina presence unspecified I25.10 ; Hypertension I10 ; Hypothyroid E03.9 ; Vitamin D deficiency E55.9 ; Insomnia G47.00 ; Palpitations R00.2 ; Depressed F32.9 ; Restless leg G25.81 and Anxiety F41.[address] 29237- 8011 Jan, Dysthymic disorder F34.1 and Generalized anxiety disorder F41.[address] 74092- 0729 Jan, [address] 73222- 8549 Dec, [place] [address] 76307- 4870 Dec, Alkalosis 276.3 ; Chronic kidney disease, Stage IV (severe) 585.4 ; Hyperpotassemia 276.7 ; Secondary hyperparathyroidism, renal 588.81 ; Proteinuria 791.0 ; Unspecified vitamin D deficiency 268.9 ; Anemia in chronic kidney disease 285.21 ; Other and unspecified hyperlipidemia 272.4 ; Hypertension, essential, benign 401.1 and Chronic kidney disease (CKD), stage III (moderate) 585.3 [place] [id number] [place] [address] 74035- 2818 Dec, [place] [id number] [place] [address] 94196- 7682 Dec, Depressive disorder, not elsewhere classified 311 and Generalized anxiety disorder 300.02 [place] [id number] [place] [address] 22505- 4099 Dec, [place] [id number] [place] [address] 06463- 9460 Dec, [place] [id number] [place] [address] 43936- 3729 Nov, Depressive disorder, not elsewhere classified 311 and Generalized anxiety disorder 300.02 [place] [id number] [place] [address] 11149- 2611 Nov, Arthritis of both knees 716.96 [place] [id number] [place] [address] 20022- 9810 Nov, PAF (paroxysmal atrial fibrillation) 427.31 ; CAD (coronary artery disease) 414.00 ; Chest pain 786.50 and Chronic kidney disease (CKD) stage G4/A1, severely decreased glomerular filtration rate (GFR) between 15-29 mL/min/1.73 square meter and albuminuria creatinine ratio less than 30 mg/g 585.[address] 50665- 7789 Oct, Coronary atherosclerosis of unspecified type of vessel, [place] or graft 414.00 ; Chronic kidney disease, Stage IV (severe) 585.4 ; Hypertension 401.9 and Edema 782.3 [place] [id number] [place] [address] 18244- 8143 Oct, Depressive disorder, not elsewhere classified 311 and Generalized anxiety disorder 300.02 [place] [id number] [place] [address] 66262- 0644 Oct, Depressive disorder, not elsewhere classified 311 and Generalized anxiety disorder 300.02 [place] [id number] [place] [address] 56079- 5096 Oct, [place] [id number] [place] [address] 06251- 0757 Oct, [place] [id number] [place] [address] 53388- 0235 Sep, [place] [id number] [place] [address] 62814- 0261 Sep, Chronic kidney disease, Stage IV (severe) 585.4 [place] [id number] [place] [address] 15818- 6970 Sep, [id number] [place] [address] 21070- 8460 Sep, Coronary atherosclerosis of unspecified type of vessel, [place] or graft 414.00 ; Hypertension 401.9 ; Edema 782.3 and Hypothyroidism 244.9 [facility] [id number] [place] [address] 77845- 3031 Sep, Coronary atherosclerosis of unspecified type of vessel, [place] or graft 414.00 ; Hypertension 401.9 ; Fibromyalgia 729.1 ; Edema 782.3 ; Hypothyroidism 244.9 and Anemia 285.9 [facility] [id number] [place] [address] 87541- 0755 Sep, Anxiety disorder, unspecified 300.00 and Depressive disorder , not elsewhere classified 311 [facility] [id number] [place] [address] 12779- 0329 Sep, [facility] [address] 94084- 8617 August, Generalized anxiety disorder 300.02 [facility] [id number] [place] [address] 59521- 4789 August, Closed fracture of lateral malleolus 824.2 [facility] [id number] [place] [address] 73984- 0739 Jul, [facility] [id number] [place] [address] 86350- 4245 Jul, [facility] [id number] [place] [address] 79445- 5374 Jun, [facility] [id number] [place] [address] 22947- 7654 Jun, [facility] [id number] [place] [address] 44129- 5940 Jun, [facility] [id number] [place] [address] 86803- 8781 Jun, [facility] [id number] [place] [address] 28386- 4679 Jun, [facility] [place] [facility] [address] [id number] [place] [address]- 2308 Jun, [facility] [place] [facility] [address] [id number] [place] [address]- 8176 May, 2014 [facility] [place] [facility] [address] [facility] [id number] [place] [address]- 7296 May, 2014 [facility] [place] [facility] [address] [id number] [place] [address]- 7432 May, 2014 [facility] [place] [facility] [address] [id number] [place] [address]- 7026 May, 2014 [facility] [place] [facility] [address] [facility] [id number] [place] [address]- 5668 16 May, 2014 [facility] [place] [facility] [address] [facility] [id number] [place] [address]- 0416 16 May, 2014 [facility] [place] [facility] [address] [facility] [id number] [place] [address]- 5813 13 May, 2014 [facility] [place] [facility] [id number] [address]- 4071 13 May, 2014 [facility] [place] [facility] [address] [facility] [id number] [place] [address]- 1747 10 May, 2014 [facility] [place] [facility] [address] [facility] [id number] [place] [address]- 4470 10 May, 2014 [facility] [place] [facility] [address] [facility] [id number] [place] [address]- 6775 Apr, [facility] [place] [facility] [address] [id number] [place] [address]- 4295 Apr, [facility] [place] [facility] [address] [facility] [id number] [place] [address]- 0503 Mar, [facility] [place] [facility] [address] [facility] [id number] [place] [address]- 4302 Mar, [facility] [place] [facility] [address] [id number] [place] [address]- 5775 Mar, [facility] [place] [facility] [address] [id number] [place] [address]- 9630 Mar, [facility] [place] [facility] [address] [id number] [place] [address]- 0587 Mar, [facility] [place] [facility] [address] [id number] [place] [address]- 0816 Mar, [facility] [place] [facility] [address] [id number] [place] [address]- 1285 Mar, [facility] [place] [facility] [address] [id number] [place] [address]- 6611 Feb, [facility] [place] [facility] [address] [id number] [place] [address]- 6439 Feb, [facility] [place] [facility] [address] [id number] [place] [address]- 2515 Feb, [facility] [place] [facility] [address] [id number] [place] [address]- 4390 Jan, [facility] [place] [facility] [address] [id number] [place] [address]- 9570 Jan, [facility] [place] [facility] [address] [id number] [place] [address]- 6683 Jan, [facility] [place] [facility] [address] [id number] [address]- 5117 Jan, [facility] [place] [facility] [address] [id number] [place] [address]- 7281 Jan, [facility] [place] [facility] [address] [id number] [place] [address]- 8700 Jan, [facility] [place] [facility] [address] [id number] [place] [address]- 0601 Jan, [facility] [place] [facility] [address] [id number] [place] [address]- 9114 Jan, [facility] [place] [facility] [address] [id number] [place] [address]- 4366 Jan, [facility] [place] [facility] [address] [id number] [place] [address]- 2593 Jan, [facility] [place] [facility] [address] [id number] [place] [address]- 6978 Nov, [facility] [place] [facility] [address] [id number] [place] [address]- 3483 Nov, [facility] [place] [facility] [address] [id number] [place] [address]- 7077 Nov, [facility] [place] [facility] [address] [id number] [place] [address]- 7924 Oct, [facility] [place] [facility] [address] [id number] [place] [address]- 6052 Oct, [facility] [place] [facility] [address] [id number] [place] [address]- 9895 Oct, [facility] [place] [facility] [address] [id number] [place] [address]- 8908 Oct, [facility] [place] [facility] [address] [id number] [place] [address]- 0712 Oct, [facility] [place] [facility] [address] [id number] [place] [address]- 4820 Oct, [facility] [place] [facility] [address] [id number] [place] [address]- 7248 Oct, [facility] [place] [facility] [address] [id number] [place] [address]- 8175 Oct, [facility] [place] [facility] [address] [id number] [place] [address]- 2458 Oct, [facility] [place] [facility] [address] [id number] [place] [address]- 9981 Sep, [facility] [place] [facility] [address] [id number] [place] [address]- 3630 Sep, [facility] [place] [facility] [address] [id number] [place] [address]- 9048 Sep, [facility] [place] [facility] [address] [id number] [place] [address]- 0670 Sep, [facility] [place] [facility] [address] [id number] [place] [address]- 6563 Sep, [facility] [place] [facility] [address] [id number] [place] [address]- 3782 Sep, [facility] [place] [facility] [address] [id number] [place] [address]- 5015 Sep, [facility] [place] [facility] [address] [id number] [place] [address]- 3975 Sep, [facility] [place] [facility] [address] [id number] [place] [address]- 9283 Sep, [facility] [place] [facility] [address] [id number] [place] [address]- 0330 August, [facility] [place] [facility] [address] [id number] [place] [address]- 0073 August, [facility] [place] [facility] [address] [id number] [place] [address]- 0687 August, [facility] [place] [facility] [address] [id number] [place] [address]- 4325 August, [facility] [place] [facility] [address] [id number] [place] [address]- 6136 August, [facility] [place] [facility] [address] [id number] [place] [address]- 8309 August, [facility] [place] [facility] [address] [id number] [place] [address]- 2969 Jul, [facility] [place] [facility] [address] [id number] [place] [address]- 9126 Jul, [facility] [place] [facility] [address] [id number] [place] [address]- 0918 Jul, [facility] [place] [facility] [address] [id number] [place] [address]- 0788 Jul, [facility] [place] [facility] [address] [id number] [place] [address]- 0053 Jul, [facility] [place] [facility] [address] [id number] [place] [address]- 2496 Jul, [facility] [place] [facility] [address] [id number] [place] [address]- 3846 Jun, [facility] [place] [facility] [address] [id number] [place] [address]- 8680 Jun, [facility] [place] [facility] [address] [id number] [place] [address]- 8261 May, [facility] [place] [facility] [address] [id number] [place] [address]- 7707 May, [facility] [place] [facility] [address] [id number] [place] [address]- 9289 May, [facility] [place] [facility] [address] [id number] [place] [address]- 1766 May, [facility] [place] [facility] [address] [id number] [place] [address]- 6811 Apr, [facility] [place] [facility] [address] [id number] [place] [address]- 8801 Apr, [facility] [place] [facility] [address] [id number] [place] [address]- 0366 Mar, [facility] [place] [facility] [address] [id number] [place] [address]- 2145 Mar, [facility] [place] [facility] [address] [id number] [place] [address]- 3064 17 Mar, 2013 [facility] [place] [facility] [address] [id number] [place] [address]- 8425 17 Mar, 2013 [facility] [place] [facility] [address] [id number] [place] [address]- 9222 05 Mar, 2013 [facility] [place] [facility] [address] [id number] [place] [address]- 0690 Mar, [facility] [place] [facility] [address] [id number] [place] [address]- 4636 Feb, [facility] [place] [facility] [address] [id number] [place] [address]- 1015 Feb, [facility] [place] [facility] [address] [id number] [place] [address]- 2076 Feb, [facility] [place] [facility] [address] [id number] [place] [address]- 9426 Feb, [facility] [place] [facility] [address] [id number] [place] [address]- 5925 Feb, [facility] [place] [facility] [address] [id number] [place] [address]- 5708 Feb, [facility] [place] [facility] [address] [id number] [place] [address]- 7047 Jan, [facility] [place] [facility] [address] [id number] [place] [address]- 6573 24 Jan, 2013 [facility] [place] [facility] [address] [id number] [place] [address]- 5450 Jan, [facility] [place] [facility] [address] [id number] [place] [address]- 0605 Jan, [facility] [place] [facility] [address] [id number] [place] [address]- 8376 08 Jan, 2013 [facility] [place] [facility] [address] [id number] [place] [address]- 2546 Jan, [facility] [place] [facility] [address] [id number] [place] [address]- 5368 Dec, [facility] [address] [id number] [place] [address]- 9556 Dec, [facility] [place] [facility] [address] [id number] [place] [address]- 5870 Nov, [facility] [place] [facility] [address] [id number] [place] [address]- 2304 Nov, [facility] [place] [facility] [address] [id number] [place] [address]- 3686 Oct, [facility] [place] [facility] [address] [id number] [place] [address]- 7010 Oct, [facility] [place] [facility] [address] [id number] [place] [address]- 0819 Oct, [facility] [place] [facility] [address] [id number] [place] [address]- 7699 Oct, [facility] [place] [facility] [address] [id number] [place] [address]- 4633 Oct, [facility] [place] [facility] [address] [id number] [place] [address] Oct, [facility] [place] [facility] [address] [id number] [place] [address] Sep, [facility] [place] [facility] [address] [id number] [place] [address] Sep, [facility] [place] [facility] [address] [id number] [place] [address] Sep, [facility] [place] [facility] [address] [id number] [place] [address] Sep, [facility] [place] [facility] [address] [id number] [place] [address] August, [facility] [place] [facility] [address] [id number] [place] [address] August, [facility] [place] [facility] [address] [id number] [place] [address] August, [facility] [address] [id number] [place] [address] August, [facility] [address] [id number] [place] [address] August, [facility] [address] [id number] [place] [address] Jul, [facility] [address] [id number] [place] [address] Jul, [facility] [address] [id number] [place] [address] Jul, [facility] [address] [id number] [place] [address] Jul, [facility] [address] [id number] [place] [address] Jul, [facility] [address] [id number] [place] [address] Jul, [facility] [address] [id number] [place] [address] Jul, [facility] [address] [id number] [place] [address] Jul, [facility] [address] [id number] [place] [address] Jul, [facility] [address] [id number] [address] Jul, [facility] [address] [id number] [id number] Jun, [facility] [address] [id number] [place] [address] Jun, [facility] [address] [id number] [place] [address] Jun, [facility] [place] [facility] [address] [id number] [place] [address] Jun, [facility] [address] [id number] [place] [address] Jun, [facility] [address] [id number] [place] [address] May, [facility] [address] [id number] [place] [address] 18 May, 2012 [facility] [address] [id number] [place] [address] May, [facility] [address] [id number] [place] [address] Apr, [facility] [address] [id number] [place] [address] Apr, [facility] [address] [id number] [place] [address] Apr, [facility] [address] [id number] [place] [address] Apr, [facility] [address] [id number] [place] [address] Apr, [facility] [address] [id number] [place] [address] Apr, [facility] [address] [id number] [place] [address] Mar, [facility] [address] [id number] [place] [address] Mar, [facility] [place] [facility] [address] [id number] [place] [address] Mar, [facility] [place] [facility] [address] [id number] [place] [address] Mar, [facility] [address] [id number] [place] [address] Feb, [facility] [place] [facility] [address] [id number] [place] [address] Feb, [facility] [place] [facility] [address] [id number] [place] [address] Feb, [facility] [place] [facility] [address] [facility] [id number] [place] [address] Feb, [facility] [place] [facility] [address] [id number] [place] [address] Feb, [facility] [place] [facility] [address] [id number] [place] [address] Feb, [facility] [place] [facility] [address] [id number] [place] [address] Feb, [facility] [place] [facility] [address] [facility] [id number] [place] [address] Feb, [facility] [place] [facility] [address] [id number], [place] [address] Feb, [facility] [place] [facility] [address] [id number] [place] [address] 9[address] Feb, [facility] [place] [facility] [address] [facility] [id number], [place] [address] Feb, [facility] [place] [facility] [address] [id number], [place] [address] Feb, [facility] [place] [facility] [address] [id number], [place] [address] Feb, [facility] [place] [facility] [address] [id number], [place] [address] Feb, [facility] [place] [facility] [address] [id number], [place] [address] Feb, [facility] [place] [facility] [address] [facility] [id number], [place] [address] Feb, [facility] [place] [facility] [address] [id number] [place] [address] 7[address] 31 Jan, 2011 [facility] [place] [facility] [address] [id number] [place] [address]- 1066 31 Jan, 2011 [facility] [place] [facility] [address] [id number] [place] [address]- [address] 31 Jan, 2011 [facility] [place] [facility] [address] [id number] [place] [address]- 3056 31 Jan, 2011 [facility] [place] [facility] [address] [id number] [place] [address]- 3[address] 30 Jan, 2011 [facility] [place] [facility] [address] [id number] [place] [address]- 7[address] Jan, 2011 [facility] [place] [facility] [address] [id number] [place] [address]- 2068 25 Jan, 2011 [facility] [place] [facility] [address] [facility] [id number] [place] [address]- 3768 16 Jan, 2012 [facility] [place] [facility] [address] [id number] [place] [address]- 0326 16 Jan, 2012 [facility] [place] [facility] [address] [id number] [place] [address]- 3008 15 Jan, 2012 [facility] [place] [facility] [address] [facility] [id number] [place] [address]- 3428 15 Jan, 2012 [facility] [place] [facility] [address] [id number] [place] [address]- 1878 Jan, [facility] [place] [facility] [address] [id number], [place] [address] 26 Dec, 2011 [facility] [place] [facility] [address] [id number] [place] [address]- 7922 26 Sep, 2011 [facility] [place] [facility] [address] [facility] [id number] [place] [address]- 8005 24 Sep, 2011 [facility] [place] [facility] [address] [id number] [place] [address]- 3970 23 Sep, 2011 [facility] [place] [facility] [address] [id number] [place] [address]- 3434 22 Dec, 2011 [facility] [place] [facility] [address] [id number] [place] [address]- 8146 21 Dec, 2011 [facility] [place] [facility] [address] [id number] [place] [address]- 9888 20 Dec, 2011 [facility] [place] [facility] [address] [id number] [place] [address]- 6855 20 Dec, 2011 [facility] [place] [facility] [address] [id number] [place] [address] 07 Sep, 2011 [facility] [place] [facility] [address] [id number] [place] [address]- 7517 06 Dec, 2011 [facility] [place] [facility] [address] [id number] [place] [address]- 2844 06 Dec, 2011 [facility] [place] [facility] [address] [id number] [place] [address]- 0315 05 Dec, 2011 [facility] [place] [facility] [address] [id number] [place] [address]- 5173 23 Nov, 2011 [facility] [place] [facility] [address] [id number] [place] [address] 0849 17 Nov, 2011 [facility] [place] [facility] [address] [id number] [place] [address]- 5771 13 Nov, 2011 [facility] [place] [facility] [address] [id number] [place] [address]- 7579 Nov, [facility] [place] [facility] [address] [id number] [place] [address]- 5889 08 Nov, 2011 [facility] [place] [facility] [address] [id number] [place] [address]- 8721 Nov, [facility] [place] [facility] [address] [id number] [place] [address]- 4868 Nov, [facility] [place] [facility] [address] [id number] [place] [address]- 2546 Nov, [facility] [place] [facility] [address] [id number] [place] [address]- 0455 Oct, [facility] [place] [facility] [address] [id number] [place] [address]- 8176 Oct, [facility] [place] [facility] [address] [id number] [place] [address]- 4266 Oct, [facility] [place] [facility] [address] [id number] [place] [address]- 1206 Oct, [facility] [place] [facility] [address] [id number] [place] [address]- 1208 Oct, [facility] [place] [facility] [address] [id number] [place] [address]- 2135 Oct, [facility] [place] [facility] [address] [id number] [place] [address]- 5685 Oct, [facility] [place] [facility] [address] [id number] [place] [address]- 9073 Sep, [facility] [place] [facility] [address] [id number] [place] [address]- 9363 Sep, [facility] [place] [facility] [address] [id number] [place] [address]- 4628 August, [facility] [place] [facility] [address] [id number] [place] [address]- 6662 August, [facility] [place] [facility] [address] [id number] [place] [address]- 4853 August, [facility] [place] [facility] [address] [id number] [place] [address]- 9116 August, [facility] [place] [facility] [address] [id number] [place] [address]- 6806 Jul, [facility] [place] [facility] [address] [id number] [place] [address]- 5466 Jul, [facility] [place] [facility] [address] [id number] [place] [address]- 0176 06 Jul, 2011 [facility] [address] [id number] [place] [address]- 1393 Jul, [facility] [address] [id number] [place] [address]- 5586 Jul, [facility] [address] [id number] [place] [address]- 3726 Jul, [facility] [address] [id number] [place] [address]- 5640 Jul, [facility] [address] [id number] [place] [address]- 5311 Jul, [facility] [address] [id number] [place] [address]- 0519 Jul, [facility] [address] [id number] [place] [address]- 7270 Jun, [facility] [address] [id number] [place] [address]- 0129 Jun, [facility] [address] [id number] [place] [address]- 1444 15 Jun, 2011 [facility] [address] [id number] [place] [address]- 0265 14 Jun, 2011 [facility] [address] [id number] [place] [address]- 5031 Jun, [facility] [address] [id number] [place] [address]- 1786 Jun, [facility] [place] [facility] [address] [id number] [place] [address]- 3934 Jun, [facility] [address] [id number] [place] [address]- 7266 May, [facility] [address] [id number] [place] [address]- 2081 May, [facility] [address] [id number] [place] [address]- 3108 May, [facility] [place] [facility] [address] [id number] [place] [address]- 9126 May, [facility] [place] [facility] [address] [id number] [place] [address]- 6066 May, [facility] [place] [facility] [address] [id number] [place] [address]- 9986 Apr, [facility] [place] [facility] [address] [id number] [place] [address]- 1353 Apr, [facility] [place] [facility] [address] [id number] [place] [address]- 5686 Apr, [facility] [place] [facility] [address] [id number] [place] [address]- 2094 Apr, [facility] [place] [facility] [address] [id number] [place] [address]- 7531 Apr, [facility] [place] [facility] [address] [id number] [place] [address]- 3564 Mar, [facility] [place] [facility] [address] [id number] [place] [address]- 3143 Mar, [facility] [place] [facility] [address] [id number] [place] [address]- 4864 Mar, [facility] [place] [facility] [address] [id number] [place] [address]- 4597 Mar, [facility] [place] [facility] [address] [id number] [place] [address]- 3246 Mar, [facility] [place] [facility] [address] [id number] [place] [address]- 5546 Mar, [facility] [place] [facility] [address] [id number] [place] [address]- 9636 Mar, [facility] [place] [facility] [address] [id number] [place] [address]- 9866 11 Feb, 2011 [facility] [place] [facility] [address] [id number] [place] [address] Feb, [facility] [place] [facility] [address] [id number] [place] [address]- 3946 Feb, [facility] [place] [facility] [address] [id number] [place] [address]- 4036 Feb, [facility] [place] [facility] [address] [id number] [place] [address]- 5320 Jan, [facility] [place] [facility] [address] [id number] [place] [address]- 5449 Jan, [facility] [place] [facility] [address] [id number] [place] [address]- 3789 Jan, [facility] [place] [facility] [address] [id number] [place] [address]- 5586 Jan, [facility] [place] [facility] [address] [id number] [place] [address]- 9287 Nov, [facility] [place] [facility] [address] [id number] [place] [address]- 0060 Mar, [facility] [place] [facility] [address] [id number] [place] [address]- 0716 Mar, [facility] [place] [facility] [address] [id number] [place] [address] 2546 Mar, [facility] [place] [facility] [address] [id number] [place] [address]- 2542 Mar, [facility] [place] [facility] [address] [id number] [place] [address]- 0732 Mar, [facility] [place] [facility] [address] [id number] [place] [address]- 4773 Mar, [facility] [place] [facility] [address] [id number] [place] [address]- 7141 Feb, [facility] [address] [facility] [id number] [place] [address]- 4705 Feb, [facility] [address] [facility] [id number], [place] [address]- 5082 Jan, [facility] [address] [facility] [id number], [place] [address]- 8090 Jan, [facility] [address] [facility] [id number], [place] [address]- 6688 Jan, IMMUNIZATIONS No Known Immunizations SOCIAL HISTORY Never Assessed REASON FOR VISIT Blood pressure check--[facility] PLAN OF CARE VITAL SIGNS Height 63 in 2017-07-09 Blood pressure systolic 112 mmHg 2017-07-09 Blood pressure diastolic 68 mmHg 2017-07-09 MEDICATIONS Unknown Medications RESULTS No Results PROCEDURES [...] & 2007 Surgical History Bladder surgery [facility] 03/2016 Hospitalization History Surgeries Only Hospitalization History 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
--- OUTSIDE RECORDS SUMMARY | 2018-05-29 08:58 | XMS REPORT ---
Author Author ISABEL MAE [facility] Address [address] [place] [address] Care Team Providers Care Cell Cleaner Name Role Phone ISABEL MAE Unavailable PROBLEMS Type Condition ICD9-CM Code LMD22-OC Code Onset Dates Condition Status SNOMED Code Problem Long-term use of high-risk medication Z79.899 Active 320934425 Problem Abnormal chest CT R93.8 Active 806533714 Problem Generalized anxiety disorder F41.1 Active 68130957 Problem Low back pain M54.5 Active 297568094 Problem Dysthymic disorder F34.1 Active 01517944 Problem Depressed F32.9 Active 16326485 Problem Coronary artery disease involving [place] coronary artery of [place] heart, angina presence unspecified I25.10 Active 8412182502074 Problem Hypothyroid E03.9 Active 24061408 Problem Insomnia G47.00 Active 048863948 Problem Vitamin D deficiency E55.9 Active 79361038 Problem Asthma J45.909 Active 657954490 Problem Chronic kidney disease, unspecified N18.9 Active 296307223 Problem Palpitations R00.2 Active 98701164 Problem Anemia in chronic kidney disease D63.1 Active 608722902079307 Problem Primary osteoarthritis of left knee M17.12 Active 311167160 Problem Bipolar disorder, current episode manic without psychotic features F31.10 Active 920787697 Problem Restless leg syndrome G25.81 Active 18850073 Problem Seasonal allergic rhinitis due to pollen J30.1 Active 02311639 Problem Functional 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 Active 57322436 Problem Chronic kidney disease, stage 4 (severe) N18.4 Active 544434424 Problem Restless leg G25.81 Active 00184993 Problem Mood disorder F39 Active 65865239 Problem Degenerative tear of medial meniscus of left knee M23.204 Active 531497834 Problem Body mass index (BMI) of 40.0-44.9 in adult Z68.41 Active 713442804 Problem Stage 3 chronic kidney disease N18.3 Active 233215806 Problem Asthma with acute exacerbation in adult J45.901 Active 858734569 Problem Other seasonal allergic rhinitis J30.2 Active 186463441 Problem History of colon polyps Z86.010 Active 903371291 Problem History of anemia Z86.2 Active 253155703 Problem Fibromyalgia M79.7 Active 509840851 Problem Essential (primary) hypertension I10 Active 93607355 Problem Hypokalemia E87.6 Active 56696000 Problem Mixed stress and urge urinary incontinence N39.46 Active 839873261 ALLERGIES No Information ENCOUNTERS Encounter Location Date Diagnosis [place] [address] [address] Nov, [place] [address] [address] Oct, Generalized anxiety disorder F41.1 and Major depressive disorder, recurrent episode with anxious distress F33.9 [place] [address] [address]- [address] Oct, [place] [address] [address]- 8[address] Oct, Fibromyalgia M79.7 [place] [address] [address]- [address] Sep, Restless leg syndrome G25.81 and Restless leg G25.81 [place] [address] [place] [id number] [place] [address] 21906- 8143 Sep, [place] [address] [address] Sep, Seasonal allergic rhinitis due to pollen J30.1 ; Screening for breast cancer Z12.31 ; Chest pain at rest R07.9 ; Restless leg syndrome G25.81 ; Essential (primary) hypertension I10 and Depressed F32.9 [place] [address] [place] [id number] [place] [address] 92309- 8997 August, Fibromyalgia M79.7 [place] [address] [place] [address] August, [facility] [place] [address] [place] [id number] [place] [address] 45214- 8098 August, [facility] [place] [address] [place] [id number] [place] [address] 18906- [address] August, [address] R93.8 [place] [address] [place] [id number] [place] [address] 69985- 3525 August, Generalized anxiety disorder F41.1 and Major depressive disorder, recurrent episode with anxious distress F33.9 [place] [address] [place] [id number] [place] [address] 44861- 0659 August, Ab[address] chest [address] R93.8 [place] [address] [place] [id number] [place] [address] 12906- 7918 Jul, [place] [address] [place] [id number] [place] [address] 27687- 7007 Jul, Chronic kidney disease, stage 4 (severe) N18.4 [place] [address] [place] [id number] [place] [address] 92661- 8604 Jul, [place] [address] [place] [id number] [place] [address] 02630- 9869 Jul, Restless leg G25.81 ; Mixed stress and urge urinary incontinence N39.46 and Fibromyalgia M79.7 [place] [address] [place] [id number] [place] [address] 56711- 7465 Jul, Chronic kidney disease, stage 4 (severe) N18.4 [place] [address] [place] [id number] [place] [address] 80159- 2957 Jun, Orthostatic hypotension I95.1 ; Chronic kidney disease, stage 4 (severe) N18.4 ; Chest wall discomfort R07.89 and Body mass index (BMI) of 40.0-44.9 in adult Z68.41 [place] [address] [place] [id number] [place] [address] 30520- 1228 Jun, [facility] [place] [id number] [place] [address] 18249- 7212 Jun, Orthostatic hypotension I95.1 [facility] [place] [address] [place] [id number] [place] [address] 86202- 9167 Jun, [facility] [address] [place] [id number] [place] [address] 01446 -0618 Jun, Orthostatic hypotension I95.1 ; Dysuria R30.0 and Acute cystitis without hematuria N30.00 [facility] [place] [address] [place] [id number] [place] [address] 76928- 9928 Jun, [facility] [place] [address] [place] [id number] [place] [address] 11419- 5670 Jun, Chronic kidney disease, stage 4 (severe) N18.4 [facility] [place] [address] [place] [id number] [place] [address] 90658- 3542 Jun, Fibromyalgia M79.7 [facility] [place] [address] [place] [id number] [place] [address] 46111- 5762 Jun, [facility] [place] [address] [place] [id number] [place] [address] 70246- 6740 Jun, [facility] [place] [address] [place] [id number] [place] [address] 75283- [address] May, [address] R93.8 and Stage 3 chronic kidney disease N18.3 [facility] [place] [address] [place] [id number] [place] [address] 33566- 4942 May, Chronic kidney disease, stage 4 (severe) N18.4 [facility] [place] [address] [place] [id number] [place] [address] 62428- 3897 May, Chronic kidney disease, stage 4 (severe) N18.4 [facility] [place] [address] [place] [id number] [place] [address] 66450- [address] May, [address] R93.8 [facility] [place] [address] [address]- 6525 May, [facility] [place] [address] [address]- 5125 May, [facility] [place] [address] [address]- 5590 May, Generalized anxiety disorder F41.1 and Major depressive disorder, recurrent episode with anxious distress F33.9 [facility] [place] [address] [address]- 7252 May, Mood disorder F39 [facility] [place] [id number] [place] [address] 24405- 6386 Apr, [facility] [place] [address] [address]- 3739 Apr, Infected skin lesion L08.9 and Muscle strain of right shoulder region, initial encounter S46.911A [facility] [place] [address] [address]- 6984 Apr, Generalized anxiety disorder F41.1 and Major depressive disorder, recurrent episode with anxious distress F33.9 [facility] [place] [address] [address]- 9193 Apr, [facility] [place] [address] [address]- 0527 Apr, Recent urinary tract infection Z87.440 and Hypothyroid E03.9 [facility] [place] [address] [address]- 8737 Apr, Generalized anxiety disorder F41.1 and Major depressive disorder, recurrent episode with anxious distress F33.9 [facility] [place] [address] [address]- 6723 Apr, Recent urinary tract infection Z87.440 [facility] [place] [address] [address]- 9167 Mar, [facility] [address] [address] Mar, Dysuria R30.0 ; Acute cystitis without hematuria N30.00 and BMI 40.0-44.9, adult Z68.41 [facility] [place] [address] [address]- 2270 14 Mar, 2017 [place] [address] [place] [id number] [place] [address] 23826- 7181 Mar, [facility] [place] [address] [place] [id number] [place] [address] 81193- 1071 Mar, Generalized anxiety disorder F41.1 and Major depressive disorder, recurrent episode with anxious distress F33.9 [place] [id number] [place] [address] 08134- 3709 Feb, Conjunctivitis, bacterial H10.9 [place] [address] [place] [id number] [place] [address] 24164- 3073 Feb, [facility] [address] [place] [id number] [place] [address] 18609 -1569 Feb, Conjunctivitis, bacterial H10.9 [place] [id number] [place] [address] 38448- 2418 Feb, [facility] [address] [address] Feb, Dysuria R30.0 ; Acute cystitis N30.00 and BMI 40.0-44.9, adult Z68.41 [place] [id number] [place] [address] 67741- 6661 Feb, [place] [address] [place] [id number] [place] [address] 29659- 6150 Feb, Generalized anxiety disorder F41.1 and Major depressive disorder, recurrent episode with anxious distress F33.9 [place] [address] [place] [address] 35346- 6817 Feb, Mood disorder F39 and BMI 40.0-44.9, adult Z68.41 [facility] [place] [address] [place] [id number] [place] [address] 65290- 2147 Jan, [facility] [place] [address] [place] [id number] [place] [address] 28456- 6203 Jan, [facility] [place] [address] [place] [id number] [place] [address] 19976- 5283 Jan, Hypothyroid E03.9 [facility] [place] [address] [place] [id number] [place] [address] 67263- 9036 Jan, [place] [address] [place] [id number] [place] [address] 93962- 4360 Jan, Chronic kidney disease, unspecified N18.9 ; Hypokalemia E87.6 ; Essential (primary) hypertension I10 ; Fibromyalgia M79.7 ; Coronary artery disease involving [place] coronary artery of [place] heart, angina presence unspecified I25.10 ; Hypothyroid E03.9 and Encounter for immunization Z23 [facility] [place] [address] [place] [id number] [place] [address] 60624- 5296 Jan, Hypothyroid E03.9 [place] [address] [place] [id number] [place] [address] 46453- 1292 Jan, [facility] [place] [address] [place] [id number] [place] [address] 89757- 9564 Dec, Vitamin D deficiency E55.9 [facility] [place] [address] [place] [id number] [place] [address] 71029- 1223 Dec, Primary osteoarthritis of left knee M17.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 [facility] [place] [address] [place] [id number] [place] [address] 88140- 3098 Dec, Fibromyalgia M79.7 [facility] [place] [address] [place] [id number] [place] [address] 42877- 4612 18 Dec, 2016 Mood disorder F39 [facility] [place] [address] [place] [address]- 7670 13 Dec, 2016 [facility] [place] [address] [facility] [id number] [address]- 8253 13 Dec, 2016 Generalized anxiety disorder F41.1 and Major depressive disorder, recurrent episode with anxious distress F33.9 [facility] [place] [address] [address]- 6762 11 Dec, 2016 [facility] [place] [address] [address]- 5731 08 Dec, 2016 Streptococcal meningitis G00.2 [facility] [place] [id number] [place] [address] 86029- 5842 07 Dec, 2016 Streptococcal meningitis G00.2 [facility] [place] [address] [address]- 4916 07 Dec, 2016 [facility] [place] [id number] [place] [address] 18808- 5341 06 Dec, 2016 Streptococcal meningitis G00.2 [facility] [place] [address] [address]- 0688 06 Dec, 2016 [facility] [place] [id number] [place] [address] 69491- 2049 06 Dec, 2016 Major depressive disorder, recurrent episode with anxious distress F33.9 [facility] [place] [address] [address]- 2957 Nov, Fever, unspecified fever cause R50.9 [facility] [place] [address] [address]- 1427 24 Nov, 2016 [facility] [place] [id number] [place] [address] 84102- 0118 16 Nov, 2016 Hypothyroid E03.9 [facility] [place] [address] [place] [id number] [address]- 4824 10 Nov, 2016 Generalized anxiety disorder F41.1 and Major depressive disorder, recurrent episode with anxious distress F33.9 [facility] [place] [address] [address]- 2936 Nov, [facility] [address] [address] Oct, Dental examination Z01.20 [facility] [place] [id number] [place] [address] 10306- 0570 Oct, Generalized anxiety disorder F41.1 and Major depressive disorder, recurrent episode with anxious distress F33.9 [facility] [place] [id number] [place] [address] 17606- 7422 Oct, Chronic kidney disease, stage 4 (severe) N18.4 [facility] [place] [address] [place] [id number] [place] [address] 88277- 7515 Oct, [place] [address] [place] [id number] [place] [address] 98462- 8023 Oct, Fibromyalgia M79.7 [facility] [place] [id number] [place] [address] 02473- 3467 Oct, [facility] [place] [address] [place] [id number] [place] [address] 51910- 0190 Oct, Generalized anxiety disorder F41.1 ; Major depressive disorder, recurrent episode with anxious distress F33.9 and Bipolar disorder, current episode manic without psychotic features F31.10 [place] [address] [address]- 3747 Sep, [facility] [place] [id number] [place] [address] 83256- 2548 Sep, [facility] [place] [id number] [place] [address] 43334- 8735 Sep, Vitamin D deficiency E55.9 [facility] [address] [address]- 2547 14 Sep, 2016 Vitamin D deficiency E55.9 [facility] [place] [id number] [place] [address] 03852697- 5894 Sep, [place] [id number] [place] [address] 54020- 1609 Sep, Chronic kidney disease, stage 4 (severe) [...] examination Z12.39 and Low back pain M54.5 [place] [address] [address]49- 0298 August, Generalized anxiety disorder F41.1 and Major depressive disorder, recurrent episode with anxious distress F33.9 [place] [address] [place] [id number] [place] [address] 59057- 6252 August, Generalized anxiety disorder F41.1 and Major depressive disorder, recurrent episode with anxious distress F33.9 [place] [address] [place] [id number] [place] [address] 43095- 3566 August, Fibromyalgia M79.7 [place] [address] [place] [id number] [place] [address] 61181- 7765 Jul, Generalized anxiety disorder F41.1 and Major depressive disorder, recurrent episode with anxious distress F33.9 [place] [address] [place] [id number] [place] [address] 67935- 0674 Jul, Fibromyalgia M79.7 [place] [address] [place] [id number] [place] [address] 00435- 9134 Jul, Generalized anxiety disorder F41.1 [place] [address] [place] [id number] [place] [address] 17949- 5195 May, [place] [address] [place] [id number] [place] [address] 39621- 0090 May, Hypothyroid E03.9 [place] [address] [address]- 5194 08 May, 2016 Chronic kidney disease, stage [...] of [place] heart, angina presence unspecified I25.10 [place] [address] [place] [id number] [place] [address] 06662- 4461 May, Vitamin D deficiency, unspecified E55.9 [place] [address] [place] [id number] [place] [address] 65472- 8869 May, Generalized anxiety disorder F41.1 and Major depressive disorder, recurrent episode with anxious distress F33.9 [place] [address] [place] [id number] [place] [address] 04337- 2969 Apr, Pain in right knee M25.561 and Pain in left knee M25.562 [place] [address] [place] [id number] [place] [address] 78007- 3325 Apr, [place] [address] [place] [id number] [place] [address] 93759- 5936 Apr, [place] [address] [place] [id number] [place] [address] 63872- 4263 Apr, [place] [address] [place] [id number] [place] [address] 95098- 9155 Mar, Generalized anxiety disorder F41.1 and Major depressive disorder, recurrent episode with anxious distress F33.9 [place] [address] [place] [id number] [place] [address] 11464- 7009 Mar, Generalized anxiety disorder F41.1 and Major depressive disorder, recurrent episode with anxious distress F33.9 [place] [address] [place] [address] [place] [address]- 3326 Mar, [facility] [place] [address] [place] [id number] [place] [address] 57271- 9657 Mar, [facility] [place] [address] [place] [id number] [place] [address] 29158- 6407 Mar, [facility] [place] [address] 51990- 2831 Mar, Asthma J45.909 and Fibromyalgia M79.7 [facility] [place] [address] 88235- 6821 Mar, Chronic kidney disease, stage 4 (severe) N18.4 ; Vitamin D deficiency E55.9 and Essential (primary) hypertension I10 [place] [address] [place] [id number] [place] [address] 84840- 1635 Feb, [facility] [address] 82600- 4222 Feb, Dysuria R30.0 ; Mixed stress and urge urinary incontinence N39.46 ; Fibromyalgia M79.7 and Chronic kidney disease, stage IV (severe) N18.4 [place] [address] [place] [id number] [place] [address] 42899- 8751 Feb, Chronic kidney disease, stage 4 (severe) N18.4 [place] [address] [place] [id number] [place] [address] 06203- 3528 Feb, Chronic kidney disease, stage 4 (severe) N18.4 [facility] [address] [place] [id number] [place] [address] 24194- 4249 Feb, [facility] [address] 02803- 1025 Feb, Vitamin D deficiency, unspecified E55.9 [facility] [address] [place] [id number] [place] [address] 72829- 1294 Jan, [facility] [address] [place] [address]- 0850 Jan, [facility] [address] [id number] [place] [address] 09262- 5628 Dec, [facility] [address] [id number] [place] [address] 90864- 0673 Dec, Chronic kidney disease, stage 4 (severe) N18.4 [facility] [address] [place] [id number] [place] [address] 10738- 6482 Dec, Dysthymic disorder F34.1 and Generalized anxiety disorder F41.1 [facility] [address] [id number] [place] [address] 97139- 1694 Dec, [facility] [address] [place] [id number] [place] [address] 13810- 2128 Dec, [facility] [address] [id number] [place] [address] 38760- 6386 Dec, Dysthymic disorder F34.1 and Generalized anxiety disorder F41.1 [facility] [address] [id number] [place] [address] 11932- 3689 Dec, Dysuria R30.0 ; Chronic kidney disease, stage 4 (severe) N18.4 ; Hypertension I10 ; Dyspepsia R10.13 ; Yeast dermatitis B37.2 ; Palpitations R00.2 ; Hypothyroid E03.9 ; Functional diarrhea K59.1 and Other seasonal allergic rhinitis J30.2 [facility] [id number] [place] [phone] Dec, [facility] [id number] [place] [phone] Nov, Dysuria R30.0 and Stress incontinence N39.3 [facility] [place] [id number] [place] [phone] Nov, [facility] [place] [id number] [place] [phone] Nov, [place] [id number] [place] [address] [phone] Nov, Osteoarthritis of knees, bilateral M17.0 [place] [address] [phone] Nov, Dysthymic disorder F34.1 and Generalized anxiety disorder F41.1 [place] [address] [address] Nov, [place] [address] [phone] Nov, [place] [address] [phone] Nov, Urgency of urination R39.15 [place] [address] [address]- [address] Nov, [place] [address] [address]- [address] Nov, Chronic kidney disease, stage 4 (severe) N18.4 [place] [address] [address]- [address] Oct, Hypertension I10 ; Coronary artery disease involving [place] coronary artery of [place] heart, angina presence unspecified I25.10 ; Palpitations R00.2 ; Hypothyroid E03.9 ; Right foot pain M79.671 ; Functional diarrhea K59.1 and Other seasonal allergic rhinitis J30.2 [place] [address] [place] [id number] [place] [address] 65695- 9253 Oct, Dysthymic disorder F34.1 and Generalized anxiety disorder F41.1 [place] [address] 36781- 0278 Sep, [place] [id number] [place] [address] 33630- 7194 Sep, [place] [address] 83384- 5903 Sep, [place] [id number] [place] [address] 71475- 9931 Sep, [place] [id number] [place] [address] 24470- 6835 Sep, [place] [id number] [place] [address] 91772- 4024 Sep, Dysthymic disorder F34.1 and Generalized anxiety disorder F41.1 [place] [id number] [place] [address] 10560- 4630 16 Sep, 2015 Asthma with acute exacerbation in adult J45.901 ; Dysuria R30.0 ; Chronic kidney disease, stage 4 (severe) N18.4 and History of anemia Z86.2 [place] [id number] [place] [address] 40093- 0353 Sep, Generalized anxiety disorder F41.1 and Dysthymic disorder F34.1 [place] [id number] [place] [address] 73483- 3475 August, Screening breast examination Z12.39 and Acute recurrent maxillary sinusitis J01.01 [place] [id number] [place] [address] 82893- 1580 August, Osteoarthritis of knees, bilateral M17.0 [place] [id number] [place] [address] 14669- 4433 August, Chronic kidney disease, stage 4 (severe) N18.4 ; Acute non- recurrent maxillary sinusitis J01.00 ; Urinary problem R39.89 ; Bowel habit changes R19.4 ; Functional diarrhea K59.1 and History of colon polyps Z86.010 [place] [id number] [place] [address] 85892- 8014 Jul, Dysthymic disorder F34.1 and Generalized anxiety disorder F41.1 [place] [id number] [place] [address] 57700- 9020 Jul, [facility] [place] [address] [address] 4400 Jul, Dysthymic disorder F34.1 ; Generalized anxiety disorder F41.1 and MCC use of drug Z79.899 [facility] [place] [address] [address]- 3128 13 Jul, 2015 [facility] [place] [id number] [place] [address] 24639- 7187 16 Jun, 2015 [facility] [place] [id number] [place] [address] 27341- 6331 Jun, [place] [id number] [place] [address] 53186- 6749 May, [place] [id number] [place] [address] 47142- 4152 May, Dysthymic disorder F34.1 and Generalized anxiety disorder F41.1 [place] [id number] [place] [address] 69139- 9314 Apr, Kidney disease N28.9 [place] [id number] [place] [address] 71531- 0688 Apr, Dysthymic disorder F34.1 and Generalized anxiety disorder F41.1 [place] [address] [address]- 6545 Apr, Chronic kidney disease, stage 4 (severe) N18.4 [facility] [place] [address] [address]- 2806 Apr, Generalized anxiety disorder F41.1 ; Major depression, recurrent F33.9 and Sleep disturbance G47.9 [place] [id number] [place] [address] 05068- 3570 Mar, Generalized anxiety disorder F41.1 and Dysthymic disorder F34.1 [place] [id number] [place] [address] 11207- 3433 Mar, Generalized anxiety disorder F41.1 ; Dysthymic disorder F34.1 and Insomnia G47.00 [facility] [place] [id number] [place] [address] 19119- 9623 Mar, [facility] [place] [id number] [place] [address] 10899- 3393 Mar, [facility] [place] [address] 84181- 7439 Mar, Osteoarthritis of knees, bilateral M17.0 [facility] [place] [id number] [place] [address] 83383- 7219 Mar, Hypertension I10 ; Hypothyroid E03.9 ; Dysthymic disorder F34.1 ; Chronic kidney disease, stage 4 (severe) N18.4 and Nausea & vomiting R11.2 [facility] [place] [id number] [place] [address] 65672- 9837 Mar, Generalized anxiety disorder F41.1 ; Dysthymic disorder F34.1 and Insomnia G47.00 [facility] [place] [id number] [place] [address] 03088- 0826 Mar, Dehydration E86.0 ; Chronic kidney disease, stage 4 (severe ) N18.4 and Nausea & vomiting R11.2 [facility] [id number] [place] [address] 16536 -9052 Mar, Gastroenteritis K52.9 [facility] [place] [id number] [place] [address] 50010- 9191 Mar, [facility] [place] [id number] [place] [address] 50238- 0190 Mar, [facility] [place] [id number] [place] [address] 96616- 1479 Feb, Dysthymic disorder F34.1 and Generalized anxiety disorder F41.1 [facility] [place] [id number] [place] [address] 21337- 8130 Jan, UTI (urinary tract infection) N39.0 ; Asthma J45.909 ; Coronary artery disease involving [place] coronary artery of [place] heart, angina presence unspecified I25.10 ; Hypertension I10 ; Hypothyroid E03.9 ; Vitamin D deficiency E55.9 ; Insomnia G47.00 ; Palpitations R00.2 ; Depressed F32.9 ; Restless leg G25.81 and Anxiety F41.[address] 32566- 3312 Jan, Dysthymic disorder F34.1 and Generalized anxiety disorder F41.[address] 15663- 5558 Jan, [address] 03448- 1491 Dec, [place] [address] 82842- 6704 Dec, Alkalosis 276.3 ; Chronic kidney disease, Stage IV (severe) 585.4 ; Hyperpotassemia 276.7 ; Secondary hyperparathyroidism, renal 588.81 ; Proteinuria 791.0 ; Unspecified vitamin D deficiency 268.9 ; Anemia in chronic kidney disease 285.21 ; Other and unspecified hyperlipidemia 272.4 ; Hypertension, essential, benign 401.1 and Chronic kidney disease (CKD), stage III (moderate) 585.3 [place] [id number] [place] [address] 54400- 8767 Dec, [place] [id number] [place] [address] 69782- 8213 Dec, Depressive disorder, not elsewhere classified 311 and Generalized anxiety disorder 300.02 [place] [id number] [place] [address] 85478- 9592 Dec, [place] [id number] [place] [address] 78235- 1071 Dec, [place] [id number] [place] [address] 98421- 1022 Nov, Depressive disorder, not elsewhere classified 311 and Generalized anxiety disorder 300.02 [place] [id number] [place] [address] 16618- 7163 Nov, Arthritis of both knees 716.96 [place] [id number] [place] [address] 59837- 1575 Nov, PAF (paroxysmal atrial fibrillation) 427.31 ; CAD (coronary artery disease) 414.00 ; Chest pain 786.50 and Chronic kidney disease (CKD) stage G4/A1, severely decreased glomerular filtration rate (GFR) between 15-29 mL/min/1.73 square meter and albuminuria creatinine ratio less than 30 mg/g 585.[address] 53258- 7524 Oct, Coronary atherosclerosis of unspecified type of vessel, [place] or graft 414.00 ; Chronic kidney disease, Stage IV (severe) 585.4 ; Hypertension 401.9 and Edema 782.3 [place] [id number] [place] [address] 30670- 9876 Oct, Depressive disorder, not elsewhere classified 311 and Generalized anxiety disorder 300.02 [place] [id number] [place] [address] 96237- 7321 Oct, Depressive disorder, not elsewhere classified 311 and Generalized anxiety disorder 300.02 [place] [id number] [place] [address] 33981- 9110 Oct, [place] [id number] [place] [address] 24524- 1515 Oct, [place] [id number] [place] [address] 23471- 1221 Sep, [place] [id number] [place] [address] 52993- 9956 Sep, Chronic kidney disease, Stage IV (severe) 585.4 [place] [id number] [place] [address] 47262- 5513 Sep, [id number] [place] [address] 11430- 7097 Sep, Coronary atherosclerosis of unspecified type of vessel, [place] or graft 414.00 ; Hypertension 401.9 ; Edema 782.3 and Hypothyroidism 244.9 [facility] [place] [id number] [place] [address] 11915- 9939 Sep, Coronary atherosclerosis of unspecified type of vessel, [place] or graft 414.00 ; Hypertension 401.9 ; Fibromyalgia 729.1 ; Edema 782.3 ; Hypothyroidism 244.9 and Anemia 285.9 [facility] [place] [id number] [place] [address] 45384- 9051 Sep, Anxiety disorder, unspecified 300.00 and Depressive disorder , not elsewhere classified 311 [facility] [place] [id number] [place] [address] 61830- 7956 Sep, [facility] [place] [address] 69785- 9879 August, Generalized anxiety disorder 300.02 [facility] [place] [id number] [place] [address] 98691- 1183 August, Closed fracture of lateral malleolus 824.2 [facility] [place] [id number] [place] [address] 23009- 7438 Jul, [facility] [place] [id number] [place] [address] 41742- 8913 Jul, [facility] [place] [id number] [place] [address] 37756- 6288 Jun, [facility] [place] [id number] [place] [address] 25547- 6031 Jun, [facility] [place] [id number] [place] [address] 91125- 5650 Jun, [facility] [place] [id number] [place] [address] 54124- 5922 Jun, [facility] [place] [id number] [place] [address] 76377- 0053 Jun, [facility] [place] [facility] [address] [id number] [place] [address]- 8825 Jun, [facility] [place] [facility] [address] [id number] [place] [address]- 5756 May, 2014 [facility] [place] [facility] [address] [facility] [id number] [place] [address]- 3186 May, 2014 [facility] [place] [facility] [address] [id number] [place] [address]- 7331 May, 2014 [facility] [place] [facility] [address] [id number] [place] [address]- 6933 May, 2014 [facility] [place] [facility] [address] [facility] [id number] [place] [address]- 0051 16 May, 2014 [facility] [place] [facility] [address] [facility] [id number] [place] [address]- 9980 16 May, 2014 [facility] [place] [facility] [address] [facility] [id number] [place] [address]- 6351 13 May, 2014 [facility] [place] [facility] [address] [id number] [place] [address]- 2428 13 May, 2014 [facility] [place] [facility] [address] [facility] [id number] [place] [address]- 3025 10 May, 2014 [facility] [place] [facility] [address] [facility] [id number] [place] [address]- 7760 10 May, 2014 [facility] [place] [facility] [address] [facility] [id number] [place] [address]- 7933 Apr, [facility] [place] [facility] [address] [id number] [place] [address]- 0592 Apr, [facility] [place] [facility] [address] [facility] [id number] [place] [address]- 6209 Mar, [facility] [place] [facility] [address] [facility] [id number] [place] [address]- 3192 Mar, [facility] [place] [facility] [address] [id number] [place] [address]- 8400 Mar, [facility] [place] [facility] [address] [id number] [place] [address]- 7278 Mar, [facility] [place] [facility] [address] [id number] [place] [address]- 4344 Mar, [facility] [place] [facility] [address] [id number] [place] [address]- 2400 Mar, [facility] [place] [facility] [address] [id number] [place] [address]- 4374 Mar, [facility] [place] [facility] [address] [id number] [place] [address]- 3269 Feb, [facility] [place] [facility] [address] [id number] [place] [address]- 1982 Feb, [facility] [place] [facility] [address] [id number] [place] [address]- 2757 Feb, [facility] [place] [facility] [address] [id number] [place] [address]- 5376 Jan, [facility] [place] [facility] [address] [id number] [place] [address]- 4873 Jan, [facility] [place] [facility] [address] [id number] [place] [address]- 6372 Jan, [facility] [place] [facility] [address] [id number] [address]- 0583 Jan, [facility] [place] [facility] [address] [id number] [place] [address]- 0944 Jan, [facility] [place] [facility] [address] [id number] [place] [address]- 4084 Jan, [facility] [place] [facility] [address] [id number] [place] [address]- 7699 Jan, [facility] [place] [facility] [address] [id number] [place] [address]- 9294 Jan, [facility] [place] [facility] [address] [id number] [place] [address]- 7203 Jan, [facility] [place] [facility] [address] [id number] [place] [address]- 5013 Jan, [facility] [place] [facility] [address] [id number] [place] [address]- 8805 Nov, [facility] [place] [facility] [address] [id number] [place] [address]- 0141 Nov, [facility] [place] [facility] [address] [id number] [place] [address]- 1364 Nov, [facility] [place] [facility] [address] [id number] [place] [address]- 0768 Oct, [facility] [place] [facility] [address] [id number] [place] [address]- 6487 Oct, [facility] [place] [facility] [address] [id number] [place] [address]- 0339 Oct, [facility] [place] [facility] [address] [id number] [place] [address]- 7447 Oct, [facility] [place] [facility] [address] [id number] [place] [address]- 2177 Oct, [facility] [place] [facility] [address] [id number] [place] [address]- 5949 Oct, [facility] [place] [facility] [address] [id number] [place] [address]- 2607 Oct, [facility] [place] [facility] [address] [id number] [place] [address]- 8143 Oct, [facility] [place] [facility] [address] [id number] [place] [address]- 2226 Oct, [facility] [place] [facility] [address] [id number] [place] [address]- 9498 Sep, [facility] [place] [facility] [address] [id number] [place] [address]- 7009 Sep, [facility] [place] [facility] [address] [id number] [place] [address]- 0755 Sep, [facility] [place] [facility] [address] [id number] [place] [address]- 5512 Sep, [facility] [place] [facility] [address] [id number] [place] [address]- 4995 Sep, [facility] [place] [facility] [address] [id number] [place] [address]- 2695 Sep, [facility] [place] [facility] [address] [id number] [place] [address]- 6840 Sep, [facility] [place] [facility] [address] [id number] [place] [address]- 7246 Sep, [facility] [place] [facility] [address] [id number] [place] [address]- 1133 Sep, [facility] [place] [facility] [address] [id number] [place] [address]- 3488 August, [facility] [place] [facility] [address] [id number] [place] [address]- 0783 August, [facility] [place] [facility] [address] [id number] [place] [address]- 7710 August, [facility] [place] [facility] [address] [id number] [place] [address]- 7004 August, [facility] [place] [facility] [address] [id number] [place] [address]- 0633 August, [facility] [place] [facility] [address] [id number] [place] [address]- 9937 August, [facility] [place] [facility] [address] [id number] [place] [address]- 6552 Jul, [facility] [place] [facility] [address] [id number] [place] [address]- 9461 Jul, [facility] [place] [facility] [address] [id number] [place] [address]- 5921 Jul, [facility] [place] [facility] [address] [id number] [place] [address]- 9140 Jul, [facility] [place] [facility] [address] [id number] [place] [address]- 9372 Jul, [facility] [place] [facility] [address] [id number] [place] [address]- 9041 Jul, [facility] [place] [facility] [address] [id number] [place] [address]- 1236 Jun, [facility] [place] [facility] [address] [id number] [place] [address]- 6818 Jun, [facility] [place] [facility] [address] [id number] [place] [address]- 5423 May, [facility] [place] [facility] [address] [id number] [place] [address]- 7288 May, [facility] [place] [facility] [address] [id number] [place] [address]- 4794 May, [facility] [place] [facility] [address] [id number] [place] [address]- 5958 May, [facility] [place] [facility] [address] [id number] [place] [address]- 8272 Apr, [facility] [place] [facility] [address] [id number] [place] [address]- 5644 Apr, [facility] [place] [facility] [address] [id number] [place] [address]- 5717 Mar, [facility] [place] [facility] [address] [id number] [place] [address]- 7815 Mar, [facility] [place] [facility] [address] [id number] [place] [address]- 1826 17 Mar, 2013 [facility] [place] [facility] [address] [id number] [place] [address]- 8826 17 Mar, 2013 [facility] [place] [facility] [address] [id number] [place] [address]- 7007 05 Mar, 2013 [facility] [place] [facility] [address] [id number] [place] [address]- 5627 Mar, [facility] [place] [facility] [address] [id number] [place] [address]- 5763 Feb, [facility] [place] [facility] [address] [id number] [place] [address]- 2855 Feb, [facility] [place] [facility] [address] [id number] [place] [address]- 5418 Feb, [facility] [place] [facility] [address] [id number] [place] [address]- 6978 Feb, [facility] [place] [facility] [address] [id number] [place] [address]- 1699 Feb, [facility] [place] [facility] [address] [id number] [place] [address]- 9533 Feb, [facility] [place] [facility] [address] [id number] [place] [address]- 2431 Jan, [facility] [place] [facility] [address] [id number] [place] [address]- 2875 24 Jan, 2013 [facility] [place] [facility] [address] [id number] [place] [address]- 9024 Jan, [facility] [place] [facility] [address] [id number] [place] [address]- 3964 Jan, [facility] [place] [facility] [address] [id number] [place] [address]- 3796 08 Jan, 2013 [facility] [place] [facility] [address] [id number] [place] [address]- 2546 Jan, [facility] [place] [facility] [address] [id number] [place] [address]- 5527 Dec, [facility] [address] [id number] [place] [address]- 8749 Dec, [facility] [place] [facility] [address] [id number] [place] [address]- 3593 Nov, [facility] [place] [facility] [address] [id number] [place] [address] Nov, [facility] [place] [facility] [address] [id number] [place] [address] Oct, [facility] [place] [facility] [address] [id number] [place] [address] Oct, [facility] [place] [facility] [address] [id number] [place] [address] Oct, [facility] [place] [facility] [address] [id number] [place] [address] Oct, [facility] [place] [facility] [address] [id number] [place] [address] Oct, [facility] [place] [facility] [address] [id number] [place] [address] Oct, [facility] [place] [facility] [address] [id number] [place] [address] Sep, [facility] [place] [facility] [address] [id number] [place] [address] Sep, [facility] [place] [facility] [address] [id number] [place] [address] Sep, [facility] [place] [facility] [address] [id number] [place] [address] Sep, [facility] [place] [facility] [address] [id number] [place] [address] August, [facility] [place] [facility] [address] [id number] [place] [address] August, [facility] [place] [facility] [address] [id number] [place] [address] August, [facility] [address] [id number] [place] [address] August, [facility] [address] [id number] [place] [address] August, [facility] [address] [id number] [place] [address] Jul, [facility] [address] [id number] [place] [address] Jul, [facility] [address] [id number] [place] [address] Jul, [facility] [address] [id number] [place] [address] Jul, [facility] [address] [id number] [place] [address] Jul, [facility] [address] [id number] [place] [address] Jul, [facility] [address] [id number] [place] [address] Jul, [facility] [address] [id number] [place] [address] Jul, [facility] [address] [id number] [place] [address] Jul, [facility] [address] [id number] [address] Jul, [facility] [address] [id number] [id number] Jun, [facility] [address] [id number] [place] [address] Jun, [facility] [address] [id number] [place] [address] Jun, [facility] [place] [facility] [address] [id number] [place] [address] Jun, [facility] [address] [id number] [place] [address] Jun, [facility] [address] [id number] [place] [address] May, [facility] [address] [id number] [place] [address] 18 May, 2012 [facility] [address] [id number] [place] [address] May, [facility] [address] [id number] [place] [address] Apr, [facility] [address] [id number] [place] [address] Apr, [facility] [address] [id number] [place] [address] Apr, [facility] [address] [id number] [place] [address] Apr, [facility] [address] [id number] [place] [address] Apr, [facility] [address] [id number] [place] [address] Apr, [facility] [address] [id number] [place] [address] Mar, [facility] [address] [id number] [place] [address] Mar, [facility] [place] [facility] [address] [id number] [place] [address]- [address] Mar, [facility] [place] [facility] [address] [id number] [place] [address] Mar, [facility] [address] [id number] [place] [address] Feb, [facility] [place] [facility] [address] [id number] [place] [address] Feb, [facility] [place] [facility] [address] [id number] [place] [address] Feb, [facility] [place] [facility] [address] [facility] [id number] [place] [address] Feb, [facility] [place] [facility] [address] [id number] [place] [address] Feb, [facility] [place] [facility] [address] [id number] [place] [address] Feb, [facility] [place] [facility] [address] [id number] [place] [address] Feb, [facility] [place] [facility] [address] [facility] [id number] [place] [address] Feb, [facility] [place] [facility] [address] [id number] [address] Feb, [facility] [place] [facility] [address] [id number] [place] [address] Feb, [facility] [place] [facility] [address] [facility] [id number] [place] [address] Feb, [facility] [place] [facility] [address] [id number] [place] [address] Feb, [facility] [place] [facility] [address] [id number] [place] [address] Feb, [facility] [place] [facility] [address] [id number] [place] [address] Feb, [facility] [place] [facility] [address] [id number] [place] [address] Feb, [facility] [place] [facility] [address] [facility] [id number] [place] [address] Feb, [facility] [place] [facility] [address] [id number] [place] [address]885 31 Jan, 2011 [facility] [place] [facility] [address] [id number] [place] [address]- 5956 31 Jan, 2011 [facility] [place] [facility] [address] [id number] [place] [address]- 5465 31 Jan, 2011 [facility] [place] [facility] [address] [id number] [place] [address]- 1666 31 Jan, 2011 [facility] [place] [facility] [address] [id number] [place] [address]- 4444 30 Jan, 2011 [facility] [place] [facility] [address] [id number] [place] [address]- 1702 Jan, 2011 [facility] [place] [facility] [address] [id number] [place] [address]- 4048 25 Jan, 2011 [facility] [place] [facility] [address] [facility] [id number] [place] [address]- 2454 16 Jan, 2012 [facility] [place] [facility] [address] [id number] [place] [address]- 8921 16 Jan, 2012 [facility] [place] [facility] [address] [id number] [place] [address]- 2464 15 Jan, 2012 [facility] [place] [facility] [address] [facility] [id number] [place] [address]- 1761 15 Jan, 2012 [facility] [place] [facility] [address] [id number] [place] [address]- 1444 Jan, [facility] [place] [facility] [address] [id number] [place] [address] 4820 26 Dec, 2011 [facility] [place] [facility] [address] [id number] [place] [address]- 7310 26 Sep, 2011 [facility] [place] [facility] [address] [facility] [id number] [place] [address]- 6653 24 Sep, 2011 [facility] [place] [facility] [address] [id number] [place] [address]- [address] 23 Sep, 2011 [facility] [place] [facility] [address] [id number] [place] [address]- 9748 22 Dec, 2011 [facility] [place] [facility] [address] [id number] [place] [address]- 5067 21 Dec, 2011 [facility] [place] [facility] [address] [id number] [place] [address]- 9412 20 Dec, 2011 [facility] [place] [facility] [address] [id number] [place] [address]- 7766 20 Dec, 2011 [facility] [place] [facility] [address] [id number] [place] [address]- 4556 07 Sep, 2011 [facility] [place] [facility] [address] [id number] [place] [address]- 1649 06 Dec, 2011 [facility] [place] [facility] [address] [id number] [place] [address]- 6477 06 Dec, 2011 [facility] [place] [facility] [address] [id number] [place] [address]- 9849 05 Dec, 2011 [facility] [place] [facility] [address] [id number] [place] [address]- 5227 23 Nov, 2011 [facility] [place] [facility] [address] [id number] [place] [address]- 8339 17 Nov, 2011 [facility] [place] [facility] [address] [id number] [place] [address]- 3388 13 Nov, 2011 [facility] [place] [facility] [address] [id number] [place] [address]- 3608 Nov, [facility] [place] [facility] [address] [id number] [place] [address]- 4909 08 Nov, 2011 [facility] [place] [facility] [address] [id number] [place] [address]- 8595 Nov, [facility] [place] [facility] [address] [id number] [place] [address]- 9120 Nov, [facility] [place] [facility] [address] [id number] [place] [address]- 2546 Nov, [facility] [place] [facility] [address] [id number] [place] [address]- 8110 Oct, [facility] [place] [facility] [address] [id number] [place] [address]- 4636 Oct, [facility] [place] [facility] [address] [id number] [place] [address]- 6596 Oct, [facility] [place] [facility] [address] [id number] [place] [address]- 2755 Oct, [facility] [place] [facility] [address] [id number] [place] [address]- 1531 Oct, [facility] [place] [facility] [address] [id number] [place] [address]- 6241 Oct, [facility] [place] [facility] [address] [id number] [place] [address]- 5009 Oct, [facility] [place] [facility] [address] [id number] [place] [address]- 4558 Sep, [facility] [place] [facility] [address] [id number] [place] [address]- 7810 Sep, [facility] [place] [facility] [address] [id number] [place] [address]- 2652 August, [facility] [place] [facility] [address] [id number] [place] [address]- 4502 August, [facility] [place] [facility] [address] [id number] [place] [address]- 4141 August, [facility] [place] [facility] [address] [id number] [place] [address]- 7476 August, [facility] [place] [facility] [address] [id number] [place] [address]- 9640 Jul, [facility] [place] [facility] [address] [id number] [place] [address]- 1566 Jul, [facility] [place] [facility] [address] [id number] [place] [address]- 4316 06 Jul, 2011 [facility] [address] [id number] [place] [address]- 7581 Jul, [facility] [address] [id number] [place] [address]- 2346 Jul, [facility] [address] [id number] [place] [address]- 5466 Jul, [facility] [address] [id number] [place] [address]- 9439 Jul, [facility] [address] [id number] [place] [address]- 9662 Jul, [facility] [address] [id number] [place] [address]- 7609 Jul, [facility] [address] [id number] [place] [address]- 3578 Jun, [facility] [address] [id number] [place] [address]- 8898 Jun, [facility] [address] [id number] [place] [address]- 0177 15 Jun, 2011 [facility] [address] [id number] [place] [address]- 4773 14 Jun, 2011 [facility] [address] [id number] [place] [address]- 0183 Jun, [facility] [address] [id number] [place] [address]- 6413 Jun, [facility] [place] [facility] [address] [id number] [place] [address]- 2342 Jun, [facility] [address] [id number] [place] [address]- 4576 May, [facility] [address] [id number] [place] [address]- 6537 May, [facility] [address] [id number] [place] [address]- 8790 May, [facility] [place] [facility] [address] [id number] [place] [address]- 4386 May, [facility] [place] [facility] [address] [id number] [place] [address]- 8696 May, [facility] [place] [facility] [address] [id number] [place] [address]- 4256 Apr, [facility] [place] [facility] [address] [id number] [place] [address]- 3282 Apr, [facility] [place] [facility] [address] [id number] [place] [address]- 3006 Apr, [facility] [place] [facility] [address] [id number] [place] [address]- 1412 Apr, [facility] [place] [facility] [address] [id number] [place] [address]- 4634 Apr, [facility] [place] [facility] [address] [id number] [place] [address]- 4971 Mar, [facility] [place] [facility] [address] [id number] [place] [address]- 5575 Mar, [facility] [place] [facility] [address] [id number] [place] [address]- 3121 Mar, [facility] [place] [facility] [address] [id number] [place] [address]- 2648 Mar, [facility] [place] [facility] [address] [id number] [place] [address]- 6426 Mar, [facility] [place] [facility] [address] [id number] [place] [address]- 1016 Mar, [facility] [place] [facility] [address] [id number] [place] [address]- 1496 Mar, [facility] [place] [facility] [address] [id number] [place] [address]- 2193 11 Feb, 2011 [facility] [place] [facility] [address] [id number] [place] [address] Feb, [facility] [place] [facility] [address] [id number] [place] [address]- 9116 Feb, [facility] [place] [facility] [address] [id number] [place] [address]- 2036 Feb, [facility] [place] [facility] [address] [id number] [place] [address]- 0411 Jan, [facility] [place] [facility] [address] [id number] [place] [address]- 9152 Jan, [facility] [place] [facility] [address] [id number] [place] [address]- 1447 Jan, [facility] [place] [facility] [address] [id number] [place] [address]- 2384 Jan, [facility] [place] [facility] [address] [id number] [place] [address]- 7045 Nov, [facility] [place] [facility] [address] [id number] [place] [address]- 1025 Mar, [facility] [place] [facility] [address] [id number] [place] [address]- 8531 Mar, [facility] [place] [facility] [address] [id number] [place] [address] 2546 Mar, [facility] [place] [facility] [address] [id number] [place] [address]- 2548 Mar, [facility] [place] [facility] [address] [id number] [place] [address]- 9736 Mar, [facility] [place] [facility] [address] [id number] [place] [address]- 5934 Mar, [facility] [place] [facility] [address] [id number] [place] [address]- 4441 Feb, [facility] [address] [facility] [id number] [place] [address]- 6295 Feb, [facility] [address] [facility] [id number] [place] [address]- 0140 Jan, [facility] [address] [facility] [id number] [place] [address]- 2248 Jan, [facility] [address] [facility] [id number] [place] [address]- 7800 Jan, IMMUNIZATIONS No Known Immunizations SOCIAL HISTORY [...] Surgical History Bladder surgery [facility] 03/2016 Hospitalization History Surgeries Only Hospitalization History 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
--- OUTSIDE RECORDS SUMMARY | 2018-05-29 08:59 | XMS REPORT ---
Author Author ISABEL MAE [facility] Address [address] [place] [address] Care Team Providers Care Receiving Operator Name Role Phone ISABEL MAE Unavailable PROBLEMS Type Condition ICD9-CM Code MWS92-GC Code Onset Dates Condition Status SNOMED Code Problem Long-term use of high-risk medication Z79.899 Active 048592874 Problem Abnormal chest CT R93.8 Active 700165658 Problem Generalized anxiety disorder F41.1 Active 64792148 Problem Low back pain M54.5 Active 016576512 Problem Dysthymic disorder F34.1 Active 22049747 Problem Depressed F32.9 Active 95110736 Problem Coronary artery disease involving [place] coronary artery of [place] tribe heart, angina presence unspecified I25.10 Active 7855339769809 Problem Hypothyroid E03.9 Active 04335607 Problem Insomnia G47.00 Active 586894716 Problem Vitamin D deficiency E55.9 Active 99570800 Problem Asthma J45.909 Active 461073013 Problem Chronic kidney disease, unspecified N18.9 Active 968479862 Problem Palpitations R00.2 Active 81306410 Problem Anemia in chronic kidney disease D63.1 Active 655831060411775 Problem Primary osteoarthritis of left knee M17.12 Active 924998205 Problem Bipolar disorder, current episode manic without psychotic features F31.10 Active 058216637 Problem Restless leg syndrome G25.81 Active 93334874 Problem Seasonal allergic rhinitis due to pollen J30.1 Active 66399181 Problem Functional diarrhea K59.1 Active 69272545 Problem Chronic kidney disease, stage 4 (severe) N18.4 Active 237308930 Problem Restless leg G25.81 Active 19812517 Problem Mood disorder F39 Active 42136495 Problem Degenerative tear of medial meniscus of left knee M23.204 Active 487570047 Problem Body mass index (BMI) of 40.0-44.9 in adult Z68.41 Active 929245631 Problem Stage 3 chronic kidney disease N18.3 Active 510681642 Problem Asthma with acute exacerbation in adult J45.901 Active 416001043 Problem Other seasonal allergic rhinitis J30.2 Active 051444335 Problem History of colon polyps Z86.010 Active 261881698 Problem History of anemia Z86.2 Active 983770794 Problem Fibromyalgia M79.7 Active 232341563 Problem Essential (primary) hypertension I10 Active 21022974 Problem Hypokalemia E87.6 Active 59460992 Problem Mixed stress and urge urinary incontinence N39.46 Active 215003418 ALLERGIES No Known Allergies ENCOUNTERS Encounter Location Date Diagnosis [place] [address] [address] Nov, [place] [address] 12[address]- 7813 Oct, Generalized anxiety disorder F41.1 and Major depressive disorder, recurrent episode with anxious distress F33.9 [place] [address] [address]38- 0076 Oct, [place] [address] 16522- 9534 Oct, Fibromyalgia M79.7 [place] [address] 7[address]69- 1233 Sep, Restless leg syndrome G25.81 and Restless leg G25.81 [place] [address] [place] [id number] [place] [address] 80592- 4737 Sep, [place] [address] [address]57- [address]0 Sep, Seasonal allergic rhinitis due to pollen J30.1 ; Screening for breast cancer Z12.31 ; Chest pain at rest R07.9 ; Restless leg syndrome G25.81 ; Essential (primary) hypertension I10 and Depressed F32.9 [place] [address] [place] [id number] [place] [address] 28974- 2321 August, Fibromyalgia M79.7 [place] [address] [place] [address] August, [facility] [address] [place] [id number] [place] [address] 67370- 2333 August, [facility] [address] [place] [id number] [place] [address] 58823- [address] August, [address] R93.8 [facility] [address] [place] [id number] [place] [address] 47290- 9506 August, Generalized anxiety disorder F41.1 and Major depressive disorder, recurrent episode with anxious distress F33.9 [place] [address] [place] [id number] [place] [address] 66309- [address] August, [address] R93.8 [place] [address] [place] [id number] [place] [address] 88268- 1256 Jul, [place] [address] [place] [id number] [place] [address] 22800- 5451 Jul, Chronic kidney disease, stage 4 (severe) N18.4 [place] [address] [place] [id number] [place] [address] 41088- 1165 Jul, [place] [address] [place] [id number] [place] [address] 49373- 9348 Jul, Restless leg G25.81 ; Mixed stress and urge urinary incontinence N39.46 and Fibromyalgia M79.7 [place] [address] [place] [id number] [place] [address] 61071- 9944 Jul, Chronic kidney disease, stage 4 (severe) N18.4 [place] [address] [place] [address] 51424- 9496 Jun, Orthostatic hypotension I95.1 ; Chronic kidney disease, stage 4 (severe) N18.4 ; Chest wall discomfort R07.89 and Body mass index (BMI) of 40.0-44.9 in adult Z68.41 [place] [address] [place] [id number] [place] [address] 07501- 0458 Jun, [facility] [address] [address] 2521 Jun, Orthostatic hypotension I95.1 [facility] [address] [place] [id number] [place] [address] 80886- 5024 Jun, [facility] [address] [place] [id number] [place] [address] 26881 -3273 Jun, Orthostatic hypotension I95.1 ; Dysuria R30.0 and Acute cystitis without hematuria N30.00 [facility] [address] [place] [id number] [place] [address] 36021- 8936 Jun, [facility] [address] [place] [id number] [place] [address] 68357- 5132 Jun, Chronic kidney disease, stage 4 (severe) N18.4 [facility] [address] [place] [id number] [place] [address] 77027- 7047 Jun, Fibromyalgia M79.7 [facility] [address] [place] [id number] [place] [address] 45250- 4347 Jun, [facility] [address] [place] [id number] [place] [address] 75896- 9479 Jun, [facility] [address] [place] [id number] [place] [address] 35378- [address] May, [address] R93.8 and Stage 3 chronic kidney disease N18.3 [facility] [address] [place] [id number] [place] [address] 27991- 7981 May, Chronic kidney disease, stage 4 (severe) N18.4 [facility] [address] [place] [id number] [place] [address] 24094- 3065 May, Chronic kidney disease, stage 4 (severe) N18.4 [facility] [address] [place] [id number] [place] [address] 09211- [address] May, [address] R93.8 [facility] [address] [facility] [id number] [address] 4777 May, [facility] [address] [facility] [id number] [address] 4[address] May, [facility] [address] [facility] [id number], [place] [address]- 5889 May, Generalized anxiety disorder F41.1 and Major depressive disorder, recurrent episode with anxious distress F33.9 [facility] [address], [place] [address]- 7443 May, Mood disorder F39 [facility] [address], [place] [address]- 4505 Apr, [facility] [address], [place] [address]- 5079 Apr, Infected skin lesion L08.9 and Muscle strain of right shoulder region, initial encounter S46.911A [facility] [address], [place] [address]- 6665 Apr, Generalized anxiety disorder F41.1 and Major depressive disorder, recurrent episode with anxious distress F33.9 [facility] [address], [place] [address]- 5162 Apr, [facility] [address], [place] [address]- 4784 Apr, Recent urinary tract infection Z87.440 and Hypothyroid E03.9 [facility] [address] [place] [id number] [address]- 8857 Apr, Generalized anxiety disorder F41.1 and Major depressive disorder, recurrent episode with anxious distress F33.9 [facility] [address] [place] [id number] [address]- 3932 Apr, Recent urinary tract infection Z87.440 [facility] [address] [place] [id number] [address]- 9452 Mar, [facility] [address], [place] [address] Mar, Dysuria R30.0 ; Acute cystitis without hematuria N30.00 and BMI 40.0-44.9, adult Z68.41 [facility] [address], [place] [address]- 9133 14 Mar, 2017 [facility] [address] [place] [id number] [place] [address] 22224- 7616 Mar, [facility] [address] [place] [id number] [place] [address] 25490- 0432 Mar, Generalized anxiety disorder F41.1 and Major depressive disorder, recurrent episode with anxious distress F33.9 [place] [address] [place] [id number] [place] [address] 93062- 5792 Feb, Conjunctivitis, bacterial H10.9 [place] [address] [place] [id number] [place] [address] 46608- 0500 Feb, [facility] [address] [place] [id number] [place] [address] 06696 -1454 Feb, Conjunctivitis, bacterial H10.9 [place] [id number] [place] [address] 78038- 5786 Feb, [facility] [address], [place] [address]6 Feb, Dysuria R30.0 ; Acute cystitis N30.00 and BMI 40.0-44.9, adult Z68.41 [place] [id number] [place] [address] 59268- 8644 Feb, [place] [address] [place] [id number] [place] [address] 07687- 6313 Feb, Generalized anxiety disorder F41.1 and Major depressive disorder, recurrent episode with anxious distress F33.9 [place] [address] [place] [address] 69118- 2561 Feb, Mood disorder F39 and BMI 40.0-44.9, adult Z68.41 [facility] [address] [place] [id number] [place] [address] 53477- 2254 Jan, [facility] [address] [place] [id number] [place] [address] 31794- 2476 Jan, [facility] [address] [place] [id number] [place] [address] 00622- 6447 Jan, Hypothyroid E03.9 [facility] [address] [place] [id number] [place] [address] 45725- 7379 Jan, [place] [address] [place] [id number] [place] [address] 55814- 9694 Jan, Chronic kidney disease, unspecified N18.9 ; Hypokalemia E87.6 ; Essential (primary) hypertension I10 ; Fibromyalgia M79.7 ; Coronary artery disease involving [place] coronary artery of [place] heart, angina presence unspecified I25.10 ; Hypothyroid E03.9 and Encounter for immunization Z23 [facility] [address] [place] [id number] [place] [address] 37309- 1520 Jan, Hypothyroid E03.9 [place] [address] [place] [id number] [place] [address] 01960- 9207 Jan, [facility] [address] [place] [id number] [place] [address] 15921- 4619 Dec, Vitamin D deficiency E55.9 [facility] [address] [place] [id number] [place] [address] 36123- 1873 Dec, Primary osteoarthritis of left knee M17.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 [facility] [address] [place] [id number] [place] [address] 87839- 7410 Dec, Fibromyalgia M79.7 [facility] [address] [place] [id number] [place] [address] 74572- 9946 Dec, Mood disorder F39 [facility] [address] [place] [address]- 2331 13 Dec, 2016 [facility] [address] [facility] [id number] [address]- 8463 13 Dec, 2016 Generalized anxiety disorder F41.1 and Major depressive disorder, recurrent episode with anxious distress F33.9 [facility] [address], [place] [address]- 4457 11 Dec, 2016 [facility] [address], [place] [address]- 0204 08 Dec, 2016 Streptococcal meningitis G00.2 [facility] [address], [place] [address]- 6781 07 Dec, 2016 Streptococcal meningitis G00.2 [facility] [address], [place] [address]- 1953 07 Dec, 2016 [facility] [id number] [place] [address] 54052- 7903 06 Dec, 2016 Streptococcal meningitis G00.2 [facility] [address], [place] [address]- 7196 06 Dec, 2016 [facility] [address], [place] [address]- 7054 06 Dec, 2016 Major depressive disorder, recurrent episode with anxious distress F33.9 [facility] [address], [place] [address]- 9389 Nov, Fever, unspecified fever cause R50.9 [facility] [address] [place] [id number] [address]- 1600 24 Nov, 2016 [facility] [id number] [place] [address] 14272- 7401 16 Nov, 2016 Hypothyroid E03.9 [facility] [address] [place] [id number], [place] [address]- 2849 10 Nov, 2016 Generalized anxiety disorder F41.1 and Major depressive disorder, recurrent episode with anxious distress F33.9 [facility] [address], [place] [address]- 2778 Nov, [facility] [id number] [id number] Oct, Dental examination Z01.20 [facility] [id number] [place] [address] 00526- 3605 Oct, Generalized anxiety disorder F41.1 and Major depressive disorder, recurrent episode with anxious distress F33.9 [facility] [address] [place] [id number] [place] [address] 35187- 8487 Oct, Chronic kidney disease, stage 4 (severe) N18.4 [facility] [address] [place] [id number] [place] [address] 22277- 5534 Oct, [place] [address] [place] [id number] [place] [address] 65252- 6630 Oct, Fibromyalgia M79.7 [facility] [id number] [place] [address] 12449- 5734 Oct, [facility] [address] [place] [id number] [place] [address] 74392- 6066 Oct, Generalized anxiety disorder F41.1 ; Major depressive disorder, recurrent episode with anxious distress F33.9 and Bipolar disorder, current episode manic without psychotic features F31.10 [facility] [address], [place] [address]- 7483 Sep, [facility] [address] [place] [id number] [place] [address] 31662- 2753 Sep, [facility] [id number] [place] [address] 28949- 8358 Sep, Vitamin D deficiency E55.9 [facility] [address], [place] [address]- 2549 14 Sep, 2016 Vitamin D deficiency E55.9 [facility] [id number] [place] [address] 40196- 7277 Sep, [place] [id number] [place] [address] 32595- 1411 Sep, Chronic kidney disease, stage 4 (severe) [...] and Low back pain M54.5 [place] [address] [place] [id number] [place] [address] 70414- 2007 August, Generalized anxiety disorder F41.1 and Major depressive disorder, recurrent episode with anxious distress F33.9 [place] [address] [place] [id number] [place] [address] 34207- 6030 August, Generalized anxiety disorder F41.1 and Major depressive disorder, recurrent episode with anxious distress F33.9 [place] [address] [place] [id number] [place] [address] 56773- 8858 August, Fibromyalgia M79.7 [place] [address] [place] [id number] [place] [address] 27218- 2888 Jul, Generalized anxiety disorder F41.1 and Major depressive disorder, recurrent episode with anxious distress F33.9 [place] [address] [place] [id number] [place] [address] 66848- 6981 Jul, Fibromyalgia M79.7 [place] [address] [place] [id number] [place] [address] 75160- 3301 Jul, Generalized anxiety disorder F41.1 [place] [address] [place] [id number] [place] [address] 00834- 4686 May, [place] [address] [place] [id number] [place] [address] 82807- 7815 May, Hypothyroid E03.9 [place] [address], [place] [address]- 8976 08 May, 2016 Chronic kidney disease, stage [...] indian tribe heart, angina presence unspecified I25.10 [place] [address] [place] [id number] [place] [address] 33259- 8628 May, Vitamin D deficiency, unspecified E55.9 [place] [address] [id number] [address]- 2741 May, Generalized anxiety disorder F41.1 and Major depressive disorder, recurrent episode with anxious distress F33.9 [place] [address] [place] [id number] [place] [address] 20214- 5824 Apr, Pain in right knee M25.561 and Pain in left knee M25.562 [place] [address] [place] [id number] [place] [address] 99807- 4455 Apr, [place] [address] [place] [id number] [place] [address] 09635- 4112 Apr, [place] [id number] [place] [address] 92174- 7686 Apr, [place] [address] [place] [id number] [place] [address] 59710- 9025 Mar, Generalized anxiety disorder F41.1 and Major depressive disorder, recurrent episode with anxious distress F33.9 [place] [id number] [place] [address] 77360- 8048 Mar, Generalized anxiety disorder F41.1 and Major depressive disorder, recurrent episode with anxious distress F33.9 [place] [address] [place] [id number] [place] [address] 24422- 5408 Mar, [facility] [address] [place] [id number] [place] [address] 45370- 9656 Mar, [facility] [address] [place] [id number] [place] [address] 35863- 2861 Mar, [facility] [address] 25209- 5556 Mar, Asthma J45.909 and Fibromyalgia M79.7 [place] [address] [place] [id number] [place] [address] 61486- 5046 Mar, Chronic kidney disease, stage 4 (severe) N18.4 ; Vitamin D deficiency E55.9 and Essential (primary) hypertension I10 [place] [address] [place] [id number] [place] [address] 23363- 3330 Feb, [place] [address] 67733- 3516 Feb, Dysuria R30.0 ; Mixed stress and urge urinary incontinence N39.46 ; Fibromyalgia M79.7 and Chronic kidney disease, stage IV (severe) N18.4 [place] [address] [place] [id number] [place] [address] 61417- 5176 Feb, Chronic kidney disease, stage 4 (severe) N18.4 [place] [address] [place] [id number] [place] [address] 42160- 9939 Feb, Chronic kidney disease, stage 4 (severe) N18.4 [place] [address] [place] [id number] [place] [address] 05666- 6218 Feb, [place] [address] [place] [id number] [place] [address] 98227- 6202 Feb, Vitamin D deficiency, unspecified E55.9 [place] [address] [place] [id number] [place] [address] 70309- 7348 Jan, [place] [address] [place] [address]- 9095 Jan, [facility] [id number] [place] [address] 87208- 6677 Dec, [facility] [address] [place] [id number] [place] [address] 45289- 7740 Dec, Chronic kidney disease, stage 4 (severe) N18.4 [facility] [address] [place] [id number] [place] [address] 30247- 7752 Dec, Dysthymic disorder F34.1 and Generalized anxiety disorder F41.1 [facility] [address] [place] [id number] [place] [address] 87151- 7902 Dec, [facility] [address] [place] [id number] [place] [address] 67151- 5421 Dec, [facility] [address] [id number] [place] [address] 91422- 5579 Dec, Dysthymic disorder F34.1 and Generalized anxiety disorder F41.1 [facility] [id number] [place] [address] 90405- 1979 Dec, Dysuria R30.0 ; Chronic kidney disease, stage 4 (severe) N18.4 ; Hypertension I10 ; Dyspepsia R10.13 ; Yeast dermatitis B37.2 ; Palpitations R00.2 ; Hypothyroid E03.9 ; Functional diarrhea K59.1 and Other seasonal allergic rhinitis J30.2 [facility] [id number] [place] [address] 56793 -5595 Dec, [facility] [id number] [place] [address] 33385 -9284 Nov, Dysuria R30.0 and Stress incontinence N39.3 [facility] [id number] [place] [address] 62261- 6576 Nov, [facility] [id number] [place] [address] 54021- 2163 Nov, [place] [id number] [place] [address] 74090- 5037 Nov, Osteoarthritis of knees, bilateral M17.0 [place] [address] 01879- 6931 Nov, Dysthymic disorder F34.1 and Generalized anxiety disorder F41.1 [place] [address] 04090- 2603 Nov, [place] [address] 18708- 4943 Nov, [place] [address] 05416- 5275 Nov, Urgency of urination R39.15 [place] [address] 89350- 0820 Nov, [place] [address] 31394- 1291 Nov, Chronic kidney disease, stage 4 (severe) N18.[address] 67681- 2507 Oct, Hypertension I10 ; Coronary artery disease involving [place] tribe coronary artery of nansem[place] indian tribe heart, angina presence unspecified I25.10 ; Palpitations R00.2 ; Hypothyroid E03.9 ; Right foot pain M79.671 ; Functional diarrhea K59.1 and Other seasonal allergic rhinitis J30.2 [place] [address] [address] [place] [id number] [place] [address] Oct, Dysthymic disorder F34.1 and Generalized anxiety disorder F41.1 [place] [address] [address] Sep, [place] [address] [address] [place] [id number] [place] [address] Sep, [place] [address] [address] Sep, [place] [address] [id number] [place] [address] Sep, [place] [address] [address] [place] [id number] [place] [address] Sep, [place] [address] [address] [place] [id number] [place] [address] Sep, Dysthymic disorder F34.1 and Generalized anxiety disorder F41.1 [place] [address] [address] [place] [id number] [place] [address] 16 Sep, 2015 Asthma with acute exacerbation in adult J45.901 ; Dysuria R30.0 ; Chronic kidney disease, stage 4 (severe) N18.4 and History of anemia Z86.2 [place] [id number] [place] [address] 53573- 4349 2015 Generalized anxiety disorder F41.1 and Dysthymic disorder F34.1 [place] [address] [place] [id number] [place] [address] 66778- 5729 August, Screening breast examination Z12.39 and Acute recurrent maxillary sinusitis J01.01 [place] [id number] [place] [address] 64599- 0685 August, Osteoarthritis of knees, bilateral M17.0 [place] [id number] [place] [address] 27649- 9875 August, Chronic kidney disease, stage 4 (severe) N18.4 ; Acute non- recurrent maxillary sinusitis J01.00 ; Urinary problem R39.89 ; Bowel habit changes R19.4 ; Functional diarrhea K59.1 and History of colon polyps Z86.010 [place] [id number] [place] [address] 41604- 4994 Jul, Dysthymic disorder F34.1 and Generalized anxiety disorder F41.1 [place] [id number] [place] [address] 98069- 0489 Jul, [facility] [address] [address] 6630 Jul, Dysthymic disorder F34.1 ; Generalized anxiety disorder F41.1 and 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 [facility] [address], [place] [address] 135[address] Jul, [facility] [id number] [place] [address] 78143- 0796 Jun, [facility] [id number] [place] [address] 60973- 8247 Jun, [place] [id number] [place] [address] 49992- 6105 May, [place] [id number] [place] [address] 58596- 2087 May, Dysthymic disorder F34.1 and Generalized anxiety disorder F41.1 [place] [id number] [place] [address] 47744- 3505 Apr, Kidney disease N28.9 [place] [id number] [place] [address] 38234- 4214 Apr, Dysthymic disorder F34.1 and Generalized anxiety disorder F41.1 [place] [address], [place] [address] 6943 Apr, Chronic kidney disease, stage 4 (severe) N18.4 [place] [address], [place] [address] 8917 Apr, Generalized anxiety disorder F41.1 ; Major depression, recurrent F33.9 and Sleep disturbance G47.9 [place] [id number] [place] [address] 41238- 6098 Mar, Generalized anxiety disorder F41.1 and Dysthymic disorder F34.1 [place] [id number] [place] [address] 08181- 3758 Mar, Generalized anxiety disorder F41.1 ; Dysthymic disorder F34.1 and Insomnia G47.00 [facility] [id number] [place] [address] 37661- 4439 Mar, [facility] [id number] [place] [address] 07264- 1985 Mar, [facility] [id number] [place] [address] 15052- 1616 Mar, Osteoarthritis of knees, bilateral M17.0 [facility] [id number] [place] [address] 79822- 3067 Mar, Hypertension I10 ; Hypothyroid E03.9 ; Dysthymic disorder F34.1 ; Chronic kidney disease, stage 4 (severe) N18.4 and Nausea & vomiting R11.2 [place] [id number] [place] [address] 42538- 4181 Mar, Generalized anxiety disorder F41.1 ; Dysthymic disorder F34.1 and Insomnia G47.00 [facility] [id number] [place] [address] 70538- 9828 Mar, Dehydration E86.0 ; Chronic kidney disease, stage 4 (severe ) N18.4 and Nausea & vomiting R11.2 [facility] [id number] [place] [address] 44407 -0403 Mar, Gastroenteritis K52.9 [facility] [id number] [place] [address] 12723- 6810 Mar, [facility] [id number] [place] [address] 19832- 0373 Mar, [facility] [id number] [place] [address] 60730- 2043 Feb, Dysthymic disorder F34.1 and Generalized anxiety disorder F41.1 [facility] [id number] [place] [address] 05468- 4572 Jan, UTI (urinary tract infection) N39.0 ; Asthma J45.909 ; Coronary artery disease involving [place] coronary artery of [place] heart, angina presence unspecified I25.10 ; Hypertension I10 ; Hypothyroid E03.9 ; Vitamin D deficiency E55.9 ; Insomnia G47.00 ; Palpitations R00.2 ; Depressed F32.9 ; Restless leg G25.81 and Anxiety F41.[address] 32542- 2801 Jan, Dysthymic disorder F34.1 and Generalized anxiety disorder F41.[address] 88722- 5163 Jan, [address] 26577- 4872 Dec, [address] 13462- 0969 Dec, Alkalosis 276.3 ; Chronic kidney disease, Stage IV (severe) 585.4 ; Hyperpotassemia 276.7 ; Secondary hyperparathyroidism, renal 588.81 ; Proteinuria 791.0 ; Unspecified vitamin D deficiency 268.9 ; Anemia in chronic kidney disease 285.21 ; Other and unspecified hyperlipidemia 272.4 ; Hypertension, essential, benign 401.1 and Chronic kidney disease (CKD), stage III (moderate) 585.3 [place] [id number] [place] [address] 23162- 9872 Dec, [place] [id number] [place] [address] 37521- 7519 Dec, Depressive disorder, not elsewhere classified 311 and Generalized anxiety disorder 300.02 [place] [address] 78010- 1055 Dec, [place] [id number] [place] [address] 14239- 3427 Dec, [place] [address] 48745- 1587 Nov, Depressive disorder, not elsewhere classified 311 and Generalized anxiety disorder 300.02 [place] [id number] [place] [address] 71011- 7002 Nov, Arthritis of both knees 716.96 [place] [id number] [place] [address] 80882- 2893 Nov, PAF (paroxysmal atrial fibrillation) 427.31 ; CAD (coronary artery disease) 414.00 ; Chest pain 786.50 and Chronic kidney disease (CKD) stage G4/A1, severely decreased glomerular filtration rate (GFR) between 15-29 mL/min/1.73 square meter and albuminuria creatinine ratio less than 30 mg/g 585.[address] 46020- 4413 Oct, Coronary atherosclerosis of unspecified type of vessel, [place] or graft 414.00 ; Chronic kidney disease, Stage IV (severe) 585.4 ; Hypertension 401.9 and Edema 782.3 [place] [id number] [place] [address] 15946- 3166 Oct, Depressive disorder, not elsewhere classified 311 and Generalized anxiety disorder 300.02 [place] [id number] [place] [address] 86228- 3085 Oct, Depressive disorder, not elsewhere classified 311 and Generalized anxiety disorder 300.02 [place] [id number] [place] [address] 84991- 6270 Oct, [place] [id number] [place] [address] 27479- 2445 Oct, [place] [id number] [place] [address] 37136- 0865 Sep, [place] [id number] [place] [address] 11822- 3906 Sep, Chronic kidney disease, Stage IV (severe) 585.4 [place] [id number] [place] [address] 38137- 8431 Sep, [place] [address] [id number] [place] [address] 20621- 8080 Sep, Coronary atherosclerosis of unspecified type of vessel, [place] or graft 414.00 ; Hypertension 401.9 ; Edema 782.3 and Hypothyroidism 244.9 [facility] [id number] [place] [address] 92502- 8733 Sep, Coronary atherosclerosis of unspecified type of vessel, [place] or graft 414.00 ; Hypertension 401.9 ; Fibromyalgia 729.1 ; Edema 782.3 ; Hypothyroidism 244.9 and Anemia 285.9 [facility] [id number] [place] [address] 31790- 9532 Sep, Anxiety disorder, unspecified 300.00 and Depressive disorder , not elsewhere classified 311 [facility] [id number] [place] [address] 59279- 6649 Sep, [facility] [address] 50801- 5360 August, Generalized anxiety disorder 300.02 [facility] [id number] [place] [address] 42034- 4851 August, Closed fracture of lateral malleolus 824.2 [facility] [id number] [place] [address] 59313- 4697 Jul, [facility] [id number] [place] [address] 83157- 6966 Jul, [facility] [id number] [place] [address] 42989- 4961 Jun, [facility] [id number] [place] [address] 97810- 0535 Jun, [facility] [id number] [place] [address] 19436- 8199 Jun, [facility] [id number] [place] [address] 43612- 6055 Jun, [facility] [id number] [place] [address] [place] [address]- 4510 Jun, 2014 [facility] [place] [facility] [address] [id number] [place] [address]- 2065 Jun, [facility] [place] [facility] [address] [id number] [place] [address]- 1886 May, 2014 [facility] [place] [facility] [address] [id number] [place] [address]- 1716 May, 2014 [facility] [place] [facility] [address] [id number] [place] [address]- 1450 May, 2014 [facility] [place] [facility] [address] [id number] [place] [address]- 4823 18 May, 2014 [facility] [place] [facility] [address] [id number] [place] [address]- 8464 16 May, 2014 [facility] [place] [facility] [address] [facility] [id number] [place] [address]- 0226 16 May, 2014 [facility] [place] [facility] [address] [id number] [place] [address]- 8130 13 May, 2014 [facility] [place] [facility] [id number] [place] [address]- 5614 13 May, 2014 [facility] [place] [facility] [address] [facility] [id number] [place] [address]- 0589 10 May, 2014 [facility] [place] [facility] [address] [facility] [id number] [place] [address]- 6122 10 May, 2014 [facility] [place] [facility] [address] [id number] [place] [address]- 2435 Apr, [facility] [place] [facility] [address] [id number] [place] [address]- 0303 Apr, [facility] [place] [facility] [address] [facility] [id number] [place] [address]- 8431 Mar, [facility] [place] [facility] [address] [facility] [id number] [place] [address]- 9239 Mar, [facility] [place] [facility] [address] [id number] [place] [address]- 2966 Mar, [facility] [place] [facility] [address] [id number] [place] [address]- 7020 Mar, [facility] [place] [facility] [address] [id number] [place] [address]- 5328 Mar, [facility] [place] [facility] [address] [id number] [place] [address]- 3475 Mar, [facility] [place] [facility] [address] [id number] [place] [address]- 8579 Mar, [facility] [place] [facility] [address] [id number] [place] [address]- 7765 Feb, [facility] [place] [facility] [address] [id number] [place] [address]- 5238 Feb, [facility] [place] [facility] [address] [id number] [place] [address]- 5409 Feb, [facility] [place] [facility] [address] [id number] [place] [address]- 2727 Jan, [facility] [place] [facility] [address] [id number] [place] [address]- 0378 Jan, [facility] [place] [facility] [address] [id number] [address]- 1276 Jan, [facility] [place] [facility] [address] [id number], [place] [address]- 4474 20 Jan, 2014 [facility] [place] [facility] [address] [id number] [place] [address]- 9199 Jan, [facility] [place] [facility] [address] [id number] [place] [address]- 6854 Jan, [facility] [place] [facility] [address] [id number] [place] [address]- 6727 Jan, [facility] [place] [facility] [address] [id number] [place] [address]- 1208 Jan, [facility] [place] [facility] [address] [id number] [place] [address]- 5191 Jan, [facility] [place] [facility] [address] [id number] [place] 9341 Jan, [facility] [place] [facility] [address] [id number] [place] [address]- 5856 Nov, [facility] [place] [facility] [address] [id number] [place] [address]- 0461 Nov, [facility] [place] [facility] [address] [id number] [place] [address]- 2639 Nov, [facility] [place] [facility] [address] [id number] [place] [address]- 7047 Oct, [facility] [place] [facility] [address] [id number] [place] [address]- 3929 Oct, [facility] [place] [facility] [address] [id number] [place] [address]- 2301 Oct, [facility] [place] [facility] [address] [id number] [place] [address]- 0481 Oct, [facility] [place] [facility] [address] [id number] [place] [address]- 5537 Oct, [facility] [place] [facility] [address] [id number] [place] [address]- 4888 Oct, [facility] [place] [facility] [address] [id number] [place] [address]- 3459 Oct, [facility] [place] [facility] [address] [id number] [place] [address]- 2591 Oct, [facility] [place] [facility] [address] [id number] [place] [address]- 9508 Oct, [facility] [place] [facility] [address] [id number] [place] [address]- 4601 Sep, [facility] [place] [facility] [address] [id number] [place] [address]- 8727 Sep, [facility] [place] [facility] [address] [id number] [place] [address]- 9309 Sep, [facility] [place] [facility] [address] [id number] [place] [address]- 4887 Sep, [facility] [place] [facility] [address] [id number] [place] [address]- 2030 Sep, [facility] [place] [facility] [address] [id number] [place] [address]- 5941 Sep, [facility] [place] [facility] [address] [id number] [place] [address]- 3999 Sep, [facility] [place] [facility] [address] [id number] [place] [address]- 3803 Sep, [facility] [place] [facility] [address] [id number] [place] [address]- 2314 Sep, [facility] [place] [facility] [address] [id number] [place] [address]- 2865 August, [facility] [place] [facility] [address] [id number] [place] [address]- 2333 August, [facility] [place] [facility] [address] [id number] [place] [address]- 8584 August, [facility] [place] [facility] [address] [id number] [place] [address]- 9596 August, [facility] [place] [facility] [address] [id number] [place] [address]- 7326 August, [facility] [place] [facility] [address] [id number] [place] [address]- 9841 August, [facility] [place] [facility] [address] [id number] [place] [address]- 8608 Jul, [facility] [place] [facility] [address] [id number] [place] [address]- 5312 Jul, [facility] [place] [facility] [address] [id number] [place] [address]- 6732 Jul, [facility] [place] [facility] [address] [id number] [place] [address]- 5473 08 Jul, 2013 [facility] [place] [facility] [address] [facility] [id number] [place] [address]- 9241 Jul, [facility] [place] [facility] [address] [id number] [place] [address]- 6463 Jul, [facility] [place] [facility] [address] [id number] [place] [address]- 9415 Jun, [facility] [place] [facility] [address] [facility] [id number] [place] [address]- 2124 Jun, [facility] [place] [facility] [address] [facility] [id number] [place] [address]- 4374 May, [facility] [place] [facility] [address] [id number] [place] [address]- 5992 May, [facility] [place] [facility] [address] [id number] [place] [address]- 0289 May, [facility] [place] [facility] [address] [facility] [id number] [place] [address]- 5564 May, [facility] [place] [facility] [address] [facility] [id number] [place] [address]- 6080 Apr, [facility] [place] [facility] [address] [id number] [place] [address]- 0480 Apr, [facility] [place] [facility] [address] [id number] [place] [address]- 3355 Mar, [facility] [place] [facility] [address] [id number] [place] [address]- 9125 Mar, [facility] [place] [facility] [address] [facility] [id number] [place] [address]- 5824 17 Mar, 2013 [facility] [place] [facility] [address] [id number] [place] [address]- 8996 17 Mar, 2013 [facility] [place] [facility] [address] [id number] [place] [address]- 5362 05 Mar, 2013 [facility] [place] [facility] [address] [id number] [place] [address]- 9886 Mar, [facility] [place] [facility] [address] [id number] [place] [address]- 2970 Feb, [facility] [place] [facility] [address] [id number] [place] [address]- 9501 Feb, [facility] [place] [facility] [address] [id number] [place] [address]- 0454 Feb, [facility] [place] [facility] [address] [id number] [place] [address]- 4476 Feb, [facility] [place] [facility] [address] [id number] [place] [address]- 7627 Feb, [facility] [place] [facility] [address] [id number] [place] [address]- 5509 Feb, [facility] [place] [facility] [address] [id number] [place] [address]- 5326 Jan, [facility] [place] [facility] [address] [id number] [place] 2291 24 Jan, 2013 [facility] [place] [facility] [address] [id number] [place] [address]- 7046 Jan, [facility] [place] [facility] [address] [id number] [place] [address]- 4394 Jan, [facility] [place] [facility] [address] [id number] [place] [address]- 6036 08 Jan, 2013 [facility] [place] [facility] [address] [id number] [place] [address]- 2546 Jan, [facility] [place] [facility] [address] [id number] [place] [address]- 6157 Dec, [facility] [place] [facility] [address] [id number] [place] [address]- 4439 Dec, [facility] [place] [facility] [address] [id number] [place] [address]- 0700 Nov, [facility] [place] [facility] [address] [id number] [place] [address]- 8307 Nov, [facility] [place] [facility] [address] [id number] [place] [address]- 6811 Oct, [facility] [place] [facility] [address] [id number] [place] [address]- 4472 Oct, [facility] [place] [facility] [address] [id number] [place] [address]- 5783 Oct, [facility] [place] [facility] [address] [id number] [place] [address]- 0103 Oct, [facility] [place] [facility] [address] [id number] [place] [address]- 5862 Oct, [facility] [place] [facility] [address] [id number] [place] [address]- 3845 Oct, [facility] [place] [facility] [address] [id number] [place] [address]- 9512 Sep, [facility] [place] [facility] [address] [id number] [place] [address]- 1905 Sep, [facility] [place] [facility] [address] [id number] [place] [address]- 0309 Sep, [facility] [place] [facility] [address] [id number] [place] [address]- 1677 Sep, [facility] [place] [facility] [address] [id number] [place] [address]- 7298 August, [facility] [place] [facility] [address] [id number] [place] [address]- 1903 August, [facility] [place] [facility] [address] [id number] [place] [address]- 3390 August, [facility] [address] [id number] [place] [address]- 0035 August, [facility] [address] [id number] [place] [address] August, [facility] [address] [id number] [place] [address] Jul, [facility] [address] [id number] [place] [address] Jul, [facility] [address] [id number] [place] [address] Jul, [facility] [address] [id number] [place] [address] Jul, [facility] [address] [id number] [place] [address] Jul, [facility] [address] [id number] [place] [address] Jul, [facility] [address] [id number] [place] [address] Jul, [facility] [address] [id number] [place] [address] Jul, [facility] [address] [id number] [place] [address] Jul, [facility] [address] [id number] [place] [address] Jul, [facility] [address] [id number] [place] [id number] Jun, [facility] [place] [facility] [address] [id number] [place] [address] Jun, [facility] [place] [facility] [address] [id number] [place] [address] Jun, [facility] [place] [facility] [address] [id number] [place] [address] Jun, [facility] [address] [id number] [place] [address] Jun, [facility] [place] [facility] [address] [id number] [place] [address] May, [facility] [place] [facility] [address] [id number] [place] [address] 18 May, 2012 [facility] [place] [facility] [address] [id number] [place] [address] May, [facility] [place] [facility] [address] [id number] [place] [address] Apr, [facility] [address] [id number] [place] [address] Apr, [facility] [address] [id number] [place] [address] Apr, [facility] [address] [id number] [place] [address] Apr, [facility] [address] [id number] [place] [address] Apr, [facility] [address] [id number] [place] [address] Apr, [facility] [address] [id number] [place] [address] Mar, [facility] [place] [facility] [address] [id number] [place] [address] Mar, [facility] [place] [facility] [address] [id number] [place] [address] Mar, [facility] [place] [facility] [address] [id number] [place] [address] Mar, [facility] [place] [facility] [address] [id number] [place] [address] Feb, [facility] [place] [facility] [address] [id number] [place] [address] Feb, [facility] [place] [facility] [address] [id number] [place] [address] Feb, [facility] [place] [facility] [address] [facility] [id number] [place] [address] Feb, [facility] [place] [facility] [address] [id number], [place] [address] Feb, [facility] [place] [facility] [address] [id number] [place] [address] Feb, [facility] [place] [facility] [address] [id number], [place] [address] Feb, [facility] [place] [facility] [address] [facility] [id number], [place] [address] Feb, [facility] [place] [facility] [address] [id number], [place] [address] Feb, [facility] [place] [facility] [address] [id number], [place] [address] Feb, [facility] [place] [facility] [address] [facility] [id number], [place] [address] Feb, [facility] [place] [facility] [address] [id number], [place] [address] Feb, [facility] [place] [facility] [address] [id number], [place] [address] Feb, [facility] [place] [facility] [address] [id number], [place] [address] Feb, [facility] [place] [facility] [address] [id number], [place] [address] Feb, [facility] [place] [facility] [address] [facility] [id number], [place] [address] Feb, [facility] [place] [facility] [address] [id number] [place] [address] 31 Jan, 2011 [facility] [place] [facility] [address] [id number] [place] [address] 31 Jan, 2011 [facility] [place] [facility] [address] [id number] [place] [address] 31 Jan, 2011 [facility] [place] [facility] [address] [id number] [place] [address] 31 Jan, 2011 [facility] [place] [facility] [address] [id number] [place] [address] 30 Jan, 2011 [facility] [place] [facility] [address] [id number] [place] [address] Jan, [facility] [place] [facility] [address] [id number] [place] [address] 25 Jan, 2012 [facility] [place] [facility] [address] [id number] [place] [address] 1417 16 Jan, 2012 [facility] [place] [facility] [address] [id number] [place] [address] 16 Jan, 2012 [facility] [place] [facility] [address] [id number] [place] [address] 2635 15 Jan, 2012 [facility] [place] [facility] [address] [facility] [id number] [place] [address] 3935 15 Jan, 2012 [facility] [place] [facility] [address] [id number] [place] [address] Jan, [facility] [place] [facility] [address] [id number] [place] [address] 26 Dec, 2011 [facility] [place] [facility] [address] [id number] [place] [address] 3[address] 26 Sep, 2011 [facility] [place] [facility] [address] [id number] [place] [address] 3730 24 Sep, 2011 [facility] [place] [facility] [address] [id number] [place] [address] 2432 23 Sep, 2011 [facility] [place] [facility] [address] [id number] [place] [address] 9215 22 Sep, 2011 [facility] [place] [facility] [address] [id number] [place] [address] 2276 21 Dec, 2011 [facility] [place] [facility] [address] [id number] [place] [address] 6770 20 Dec, 2011 [facility] [place] [facility] [address] [id number] [place] [address] 1476 20 Sep, 2011 [facility] [place] [facility] [address] [id number] [place] [address] 34[address] 07 Sep, 2011 [facility] [place] [facility] [address] [id number] [place] [address] 0752 06 Sep, 2011 [facility] [place] [facility] [address] [id number] [place] [address]- 9182 06 Sep, 2011 [facility] [place] [facility] [address] [id number] [place] [address]- 3553 05 Dec, 2011 [facility] [place] [facility] [address] [id number] [place] [address]- 0920 23 Nov, 2011 [facility] [place] [facility] [address] [id number] [place] [address]- 3061 17 Nov, 2011 [facility] [place] [facility] [address] [id number] [place] [address]- 8545 13 Nov, 2011 [facility] [place] [facility] [address] [id number] [place] [address] 3667 10 Nov, 2011 [facility] [place] [facility] [address] [id number] [place] [address]278 08 Nov, 2011 [facility] [place] [facility] [address] [id number] [place] [address]- 7738 07 Nov, 2011 [facility] [place] [facility] [address] [id number] [place] [address] 4296 02 Nov, 2011 [facility] [place] [facility] [address] [id number] [place] [address] 4682 Nov, [facility] [place] [facility] [address] [id number] [place] [address] 7527 Oct, [facility] [place] [facility] [address] [id number] [place] [address] 1166 Oct, [facility] [place] [facility] [address] [id number] [place] [address] 4737 Oct, [facility] [place] [facility] [address] [id number] [place] [address] 8690 Oct, [facility] [place] [facility] [address] [id number] [place] [address] 8555 Oct, [facility] [place] [facility] [address] [id number] [place] [address] 3724 Oct, [facility] [place] [facility] [address] [id number] [place] [address] 9653 Oct, [facility] [place] [facility] [address] [id number] [place] [address] 8266 Sep, [facility] [place] [facility] [address] [id number] [place] [address] 4811 Sep, [facility] [place] [facility] [address] [id number] [place] [address] 0285 August, [facility] [place] [facility] [address] [id number] [place] [address] 4742 August, [facility] [place] [facility] [address] [id number] [place] [address] 9747 August, [facility] [place] [facility] [address] [id number] [place] [address] 2068 August, [facility] [place] [facility] [address] [id number] [place] [address] 0823 Jul, [facility] [place] [facility] [address] [id number] [place] [address]- 9346 Jul, [facility] [place] [facility] [address] [id number] [place] [address]- 7842 06 Jul, 2011 [facility] [address] [id number] [place] [address]118 Jul, [facility] [place] [facility] [address] [id number] [place] [address] 8906 Jul, [facility] [address] [id number] [place] [address]- 1106 Jul, [facility] [address] [id number] [place] [address] 7593 Jul, [facility] [address] [id number] [place] [address] 9369 Jul, [facility] [address] [id number] [place] [address] 9822 Jul, [facility] [address] [id number] [place] [address] 2646 Jun, [facility] [address] [id number] [place] [address]- 0250 Jun, [facility] [address] [id number] [place] [address] 9280 15 Jun, 2011 [facility] [address] [id number] [place] [address] 8041 14 Jun, 2011 [facility] [address] [id number] [place] [address] 9826 Jun, [facility] [address] [id number] [place] [address] 2714 Jun, [facility] [place] [facility] [address] [id number] [place] [address]- 1291 Jun, [facility] [address] [id number] [place] [address] 1376 May, [facility] [place] [facility] [address] [id number] [place] [address] 1202 May, [facility] [place] [facility] [address] [id number] [place] [address]- 4410 May, [facility] [place] [facility] [address] [id number] [place] [address]- 1366 May, [facility] [place] [facility] [address] [id number] [place] [address]- 5306 May, [facility] [place] [facility] [address] [id number] [place] [address]- 8754 Apr, [facility] [place] [facility] [address] [id number] [place] [address]- 2130 Apr, [facility] [place] [facility] [address] [id number] [place] [address]- 2289 Apr, [facility] [place] [facility] [address] [id number] [place] [address]- 1546 Apr, [facility] [place] [facility] [address] [id number] [place] [address]- 3281 Apr, [facility] [place] [facility] [address] [id number] [place] [address]- 9979 Mar, [facility] [place] [facility] [address] [id number] [place] [address]- 1759 Mar, [facility] [place] [facility] [address] [id number] [place] [address]- 0224 Mar, [facility] [place] [facility] [address] [id number] [place] [address]- 6580 Mar, [facility] [place] [facility] [address] [id number] [place] [address]- 1316 Mar, [facility] [place] [facility] [address] [id number] [place] [address]- 3266 Mar, [facility] [place] [facility] [address] [id number] [place] [address]- 4756 Mar, [facility] [place] [facility] [address] [id number] [place] [address]- 7838 11 Feb, 2011 [facility] [address] [id number] [place] [address]- 6087 Feb, [facility] [place] [facility] [address] [id number] [place] [address] Feb, [facility] [place] [facility] [address] [id number] [place] [address]- 1855 Feb, [facility] [place] [facility] [address] [id number] [place] [address]- 3838 Jan, [facility] [place] [facility] [address] [id number] [place] [address]- 4054 Jan, [facility] [place] [facility] [address] [id number] [place] [address]- 2762 Jan, [facility] [address] [id number] [place] [address]- 6938 Jan, [facility] [place] [facility] [address] [id number] [place] [address]- 9458 Nov, [facility] [place] [facility] [address] [id number] [place] [address]- 7831 Mar, [facility] [place] [facility] [address] [id number] [place] [address]- 4885 Mar, [facility] [place] [facility] [address] [id number] [place] [address] 2546 Mar, [facility] [place] [facility] [address] [id number] [place] [address]- 0129 Mar, [facility] [place] [facility] [address] [id number] [place] [address]- 5338 Mar, [facility] [place] [facility] [address] [id number] [place] [address]- 2006 Mar, [facility] [place] [facility] [address] [id number] [place] [address]- 4802 Feb, [facility] [address] [facility] [id number], [place] [address]- [address]44 Feb, [facility] [address] [facility] [id number] [address] Jan, [facility] [address] [facility] [id number], [place] [address]8 Jan, [facility] [address] [facility] [id number][place] [id number] Jan, IMMUNIZATIONS No Known Immunizations SOCIAL HISTORY Never Assessed REASON FOR VISIT Hypotension. BP 74/50. Dizziness, fatigue, ringing in ears, back pain, nauseous. [facility] self [facility] PL[facility] OF CARE Activity Details Follow Up Sunday lab and BP check Reason: VITAL SIGNS Height 63 in 2017-07-07 Weight 204 lbs 2017-07-07 Temperature 98.7 degrees Fahrenheit 2017-07-07 Heart Rate 60 bpm 2017-07-07 Respiratory Rate 18 2017-07-07 BMI 36.13 kg/m2 2017-07-07 Blood pressure systolic 74 mmHg 2017-07-07 Blood pressure diastolic 50, 100 mmHg 2017-07-07 MEDICATIONS Medication Instructions Dosage Frequency Start Date End Date Duration Status Topamax 100 MG Orally Twice a day 1 tablet 12h Active Fish Oil 1200 MG Orally Once a day at hs 1 capsule Active Symbicort 80-4.5 MCG/ACT INHALE TWO PUFFS BY MOUTH TWICE DAILY. 25 Active Ferrous Sulfate 325 (65 Fe) MG Orally 3 times a day 1 tablet 8h Active Cephalexin 500 mg Orally every 12 hrs 1 capsule 12h Jun, Jun, 05 days Active Cymbalta 60 MG TAKE ONE CAPSULE BY MOUTH ONCE DAILY 30 Active ProAir HFA 108 (90 Base) MCG/ACT 1 puff Active Gemfibrozil 600 MG Orally Twice a day 1 tablet 12h 30 Active Requip 4 MG TAKE TWO TABLETS BY MOUTH 1 TO 3 HOURS BEFORE BEDTIME 30 Active Voltaren 1 % Transdermal to knee BID. Max dose 4 grams 2 grams Jan, 8 Not-Taking Synthroid 150 MCG TAKE 1 TABLET BY MOUTH ONCE DAILY 30 Active Vitamin D (Ergocalciferol) 74720 UNIT Orally once weekly 1 capsule Active Fluticasone Propionate 50 MCG/ACT USE ONE SPRAY IN EACH NOSTRIL TWICE DAILY Active Vitamin C 1000 MG Orally Once a day 1 tablet 24h Active Metoprolol Succinate ER 50 MG TAKE ONE TABLET BY MOUTH THREE TIMES DAILY 30 Active Pantoprazole Sodium 40 MG TAKE ONE TABLET BY MOUTH ONCE DAILY 30 Active Fiber Complete - Active Lyrica 150 MG Orally 3 times a day 1 capsule 8h 28 days Active Aspirin 325 MG Orally Once a day 1 tablet 24h Active Ipratropium [place] 0.03 % Nasally Three times a day prn drainage 1-2 sprays in each nostril as needed Active Toprol XL 50 mg 1 tablet 24h Active RESULTS No Results PROCEDURES Procedure Date Ordered Result Body Site URINALYSIS, AUTO, W/O SCOPE July 07, 2017 [facility] VISIT ESTABLISHED PATIENT July 07, 2017 LAB NOT BILLED BY [facility] July 07, 2017 INSTRUCTIONS MEDICATIONS ADMINISTERED No Known [...] & 2007 Surgical History Bladder surgery [facility] 03/2016 Hospitalization History Surgeries Only Hospitalization History bacterial meningitis December 2016 Hospitalization History [facility] psych for SI 1988 Hospitalization History [facility]-Altered mental status 05/2017
--- OUTSIDE RECORDS SUMMARY | 2018-05-29 09:00 | XMS REPORT ---
Author Author ISABEL MAE [facility] Address [address] [place] [address] Care Team Providers Care Product Communications Manager Name Role Phone ISABEL MAE Unavailable PROBLEMS Type Condition ICD9-CM Code UBO23-ZX Code Onset Dates Condition Status SNOMED Code Problem Long-term use of high-risk medication Z79.899 Active 184602148 Problem Abnormal chest CT R93.8 Active 562543121 Problem Generalized anxiety disorder F41.1 Active 84700207 Problem Low back pain M54.5 Active 233450636 Problem Dysthymic disorder F34.1 Active 10375280 Problem Depressed F32.9 Active 18715453 Problem Coronary artery disease involving penobscot coronary artery of penobscot heart, angina presence unspecified I25.10 Active 2213646667431 Problem Hypothyroid E03.9 Active 01703391 Problem Insomnia G47.00 Active 164552615 Problem Vitamin D deficiency E55.9 Active 58836082 Problem Asthma J45.909 Active 002998597 Problem Chronic kidney disease, unspecified N18.9 Active 157854563 Problem Palpitations R00.2 Active 34794137 Problem Anemia in chronic kidney disease D63.1 Active [id number] Problem Primary osteoarthritis of left knee M17.12 Active 155771821 Problem Bipolar disorder, current episode manic without psychotic features F31.10 Active 394891259 Problem Restless leg syndrome G25.81 Active 12632317 Problem Seasonal allergic rhinitis due to pollen J30.1 Active 83374691 Problem Functional diarrhea K59.1 Active 68431485 Problem Chronic kidney disease, stage 4 (severe) N18.4 Active 425132378 Problem Restless leg G25.81 Active 59431517 Problem Mood disorder F39 Active 02894263 Problem Degenerative tear of medial meniscus of left knee M23.204 Active 150893199 Problem Body mass index (BMI) of 40.0-44.9 in adult Z68.41 Active 208660844 Problem Stage 3 chronic kidney disease N18.3 Active 470634868 Problem Asthma with acute exacerbation in adult J45.901 Active 312846457 Problem Other seasonal allergic rhinitis J30.2 Active 898596608 Problem History of colon polyps Z86.010 Active 915505564 Problem History of anemia Z86.2 Active 807692287 Problem Fibromyalgia M79.7 Active 370298229 Problem Essential (primary) hypertension I10 Active 41962766 Problem Hypokalemia E87.6 Active 47748016 Problem Mixed stress and urge urinary incontinence N39.46 Active 345409577 ALLERGIES No Information ENCOUNTERS Encounter Location Date Diagnosis [place] [address] [address] Nov, [place] [address] 82741- 6968 Oct, Generalized anxiety disorder F41.1 and Major depressive disorder, recurrent episode with anxious distress F33.9 [place] [address] 86194- 0486 Oct, [place] [address] 71995- 9988 Oct, Fibromyalgia M79.7 [place] [address] 28533- 1494 Sep, Restless leg syndrome G25.81 and Restless leg G25.81 [place] [address] [place] [id number] [place] [address] 24289- 1265 Sep, [place] [address] 44288- 7978 Sep, Seasonal allergic rhinitis due to pollen J30.1 ; Screening for breast cancer Z12.31 ; Chest pain at rest R07.9 ; Restless leg syndrome G25.81 ; Essential (primary) hypertension I10 and Depressed F32.9 [place] [address] [place] [id number] [place] [address] 10648- 4187 August, Fibromyalgia M79.7 [place] [address] [place] [address]- 09[address] August, [facility] [address] [place] [id number] [place] [address] 09053- 0232 August, [facility] [address] [place] [id number] [place] [address] 22626- 6469 August, Ab[address] chest [address] R93.8 [place] [address] [place] [id number] [place] [address] 66349- 9489 August, Generalized anxiety disorder F41.1 and Major depressive disorder, recurrent episode with anxious distress F33.9 [place] [address] [place] [id number] [place] [address] 44913- 8513 August, Abnormal chest [address] R93.8 [place] [address] [place] [id number] [place] [address] 46535- 6752 Jul, [place] [address] [place] [id number] [place] [address] 13016- 4126 Jul, Chronic kidney disease, stage 4 (severe) N18.4 [place] [address] [place] [id number] [place] [address] 87189- 0759 Jul, [place] [address] [place] [id number] [place] [address] 25139- 8425 Jul, Restless leg G25.81 ; Mixed stress and urge urinary incontinence N39.46 and Fibromyalgia M79.7 [place] [address] [place] [id number] [place] [address] 82099- 6481 Jul, Chronic kidney disease, stage 4 (severe) N18.4 [place] [address] [place] [id number] [place] [address] 48376- 7194 Jun, Orthostatic hypotension I95.1 ; Chronic kidney disease, stage 4 (severe) N18.4 ; Chest wall discomfort R07.89 and Body mass index (BMI) of 40.0-44.9 in adult Z68.41 [place] [address] [place] [id number] [place] [address] 96058- 1473 Jun, [facility] [id number] [place] [address] 96826- 0352 Jun, Orthostatic hypotension I95.1 [facility] [address] [place] [id number] [place] [address] 94605- 6285 Jun, [facility] [address] [place] [id number] [place] [address] 67191 -2467 Jun, Orthostatic hypotension I95.1 ; Dysuria R30.0 and Acute cystitis without hematuria N30.00 [facility] [address] [place] [id number] [place] [address] 30975- 8289 Jun, [facility] [address] [place] [id number] [place] [address] 36901- 0272 Jun, Chronic kidney disease, stage 4 (severe) N18.4 [facility] [address] [place] [id number] [place] [address] 15900- 3664 Jun, Fibromyalgia M79.7 [facility] [address] [place] [id number] [place] [address] 67407- 1003 Jun, [facility] [address] [place] [id number] [place] [address] 21410- 1253 Jun, [facility] [address] [place] [id number] [place] [address] 32580- [address] May, [address] R93.8 and Stage 3 chronic kidney disease N18.3 [facility] [address] [place] [id number] [place] [address] 80735- 4674 May, Chronic kidney disease, stage 4 (severe) N18.4 [facility] [address] [place] [id number] [place] [address] 80101- 6256 May, Chronic kidney disease, stage 4 (severe) N18.4 [facility] [address] [place] [id number] [place] [address] 52190- [address] May, [address] R93.8 [facility] [address], [place] [address]- 8153 May, [facility] [address] [address]- 8792 May, [facility] [address], [place] [address]- 3933 May, Generalized anxiety disorder F41.1 and Major depressive disorder, recurrent episode with anxious distress F33.9 [facility] [address], [place] [address]- 9049 May, Mood disorder F39 [facility] [id number] [place] [address] 68309- 0483 Apr, [facility] [address] [address]- 6604 Apr, Infected skin lesion L08.9 and Muscle strain of right shoulder region, initial encounter S46.911A [facility] [address] [address]- 2993 Apr, Generalized anxiety disorder F41.1 and Major depressive disorder, recurrent episode with anxious distress F33.9 [facility] [address] [address]- 9354 Apr, [facility] [address] [address]- 5450 Apr, Recent urinary tract infection Z87.440 and Hypothyroid E03.9 [facility] [address], [place] [address]- 0837 Apr, Generalized anxiety disorder F41.1 and Major depressive disorder, recurrent episode with anxious distress F33.9 [facility] [address], [place] [address]- 1377 Apr, Recent urinary tract infection Z87.440 [facility] [address] [address]- 6620 Mar, [facility] [address], [place] [address] Mar, Dysuria R30.0 ; Acute cystitis without hematuria N30.00 and BMI 40.0-44.9, adult Z68.41 [facility] [address] [address]- 1112 14 Mar, 2017 [place] [address] [place] [id number] [place] [address] 56138- 5363 Mar, [facility] [address] [place] [id number] [place] [address] 50994- 3180 Mar, Generalized anxiety disorder F41.1 and Major depressive disorder, recurrent episode with anxious distress F33.9 [place] [id number] [place] [address] 23548- 4531 Feb, Conjunctivitis, bacterial H10.9 [place] [address] [place] [id number] [place] [address] 93199- 0343 Feb, [facility] [address] [place] [id number] [place] [address] 33191 -1605 Feb, Conjunctivitis, bacterial H10.9 [place] [id number] [place] [address] 78256- 7991 Feb, [facility] [address], [place] [address] Feb, Dysuria R30.0 ; Acute cystitis N30.00 and BMI 40.0-44.9, adult Z68.41 [place] [id number] [place] [address] 38629- 5963 Feb, [place] [address] [place] [id number] [place] [address] 28775- 2123 Feb, Generalized anxiety disorder F41.1 and Major depressive disorder, recurrent episode with anxious distress F33.9 [place] [id number] [place] [address] 21103- 5719 Feb, Mood disorder F39 and BMI 40.0-44.9, adult Z68.41 [facility] [address] [place] [id number] [place] [address] 94566- 2865 Jan, [facility] [address] [place] [id number] [place] [address] 87441- 0030 Jan, [facility] [address] [place] [id number] [place] [address] 68885- 3468 Jan, Hypothyroid E03.9 [facility] [address] [place] [id number] [place] [address] 90049- 5837 Jan, [place] [address] [place] [id number] [place] [address] 60080- 9317 Jan, Chronic kidney disease, unspecified N18.9 ; Hypokalemia E87.6 ; Essential (primary) hypertension I10 ; Fibromyalgia M79.7 ; Coronary artery disease involving penobscot coronary artery of penobscot heart, angina presence unspecified I25.10 ; Hypothyroid E03.9 and Encounter for immunization Z23 [facility] [address] [place] [id number] [place] [address] 98057- 6539 Jan, Hypothyroid E03.9 [place] [address] [place] [id number] [place] [address] 88613- 1682 Jan, [facility] [address] [place] [id number] [place] [address] 81723- 4297 Dec, Vitamin D deficiency E55.9 [facility] [address] [place] [id number] [place] [address] 35400- 4158 Dec, Primary osteoarthritis of left knee M17.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 [facility] [address] [place] [id number] [place] [address] 07565- 0735 Dec, Fibromyalgia M79.7 [facility] [address] [place] [id number] [place] [address] 64031- 6263 18 Dec, 2016 Mood disorder F39 [facility] [address] [place] [address]- 1848 13 Dec, 2016 [facility] [address] [facility] [id number] [address]- 4889 13 Dec, 2016 Generalized anxiety disorder F41.1 and Major depressive disorder, recurrent episode with anxious distress F33.9 [facility] [address], [place] [address]- 8769 11 Dec, 2016 [facility] [address], [place] [address]- 8812 08 Dec, 2016 Streptococcal meningitis G00.2 [facility] [id number] [place] [address] 45138- 7482 07 Dec, 2016 Streptococcal meningitis G00.2 [facility] [address], [place] [address]- 0080 07 Dec, 2016 [facility] [id number] [place] [address] 90603- 3396 06 Dec, 2016 Streptococcal meningitis G00.2 [facility] [address], [place] [address]- 6895 06 Dec, 2016 [facility] [id number] [place] [address] 82933- 4417 06 Dec, 2016 Major depressive disorder, recurrent episode with anxious distress F33.9 [facility] [address], [place] [address]- 4622 Nov, Fever, unspecified fever cause R50.9 [facility] [address], [place] [address]- 1084 24 Nov, 2016 [facility] [id number] [place] [address] 46387- 8109 16 Nov, 2016 Hypothyroid E03.9 [facility] [address] [place] [id number] [address]- 0304 10 Nov, 2016 Generalized anxiety disorder F41.1 and Major depressive disorder, recurrent episode with anxious distress F33.9 [facility] [address], [place] [address]- 2121 Nov, [facility] [id number] [id number] Oct, Dental examination Z01.20 [facility] [id number] [place] [address] 94068- 5091 Oct, Generalized anxiety disorder F41.1 and Major depressive disorder, recurrent episode with anxious distress F33.9 [facility] [id number] [place] [address] 31035- 4722 Oct, Chronic kidney disease, stage 4 (severe) N18.4 [facility] [address] [place] [id number] [place] [address] 55687- 7668 Oct, [place] [address] [place] [id number] [place] [address] 52632- 5318 Oct, Fibromyalgia M79.7 [facility] [id number] [place] [address] 83772- 3878 Oct, [facility] [address] [place] [id number] [place] [address] 78202- 4100 Oct, Generalized anxiety disorder F41.1 ; Major depressive disorder, recurrent episode with anxious distress F33.9 and Bipolar disorder, current episode manic without psychotic features F31.10 [place] [address], [place] [address]- 1796 Sep, [facility] [id number] [place] [address] 90028- 2545 Sep, [facility] [id number] [place] [address] 81062- 1056 Sep, Vitamin D deficiency E55.9 [facility] [address], [place] [address]- 2541 14 Sep, 2016 Vitamin D deficiency E55.9 [facility] [id number] [place] [address] 08062985- 2882 Sep, [place] [id number] [place] [address] 68507- 9818 Sep, Chronic kidney disease, stage 4 (severe) N18.4 ; Hypothyroid E03.9 ; Restless leg G25.81 ; Fibromyalgia M79.7 ; Essential ( primary) hypertension I10 ; Vitamin D deficiency E55.9 ; Dyspepsia R10.13 ; Anemia in chronic kidney disease D63.1 ; Chronic kidney disease, unspecified N18.9 ; Coronary artery disease involving penobscot coronary artery of penobscot heart , angina presence unspecified I25.10 ; Screening breast examination Z12.39 and Low back pain M54.5 [place] [address] 17811- 0628 August, Generalized anxiety disorder F41.1 and Major depressive disorder, recurrent episode with anxious distress F33.9 [place] [address] [place] [id number] [place] [address] 29217- 1265 August, Generalized anxiety disorder F41.1 and Major depressive disorder, recurrent episode with anxious distress F33.9 [place] [address] [place] [id number] [place] [address] 94538- 4717 August, Fibromyalgia M79.7 [place] [address] [place] [id number] [place] [address] 24202- 8409 Jul, Generalized anxiety disorder F41.1 and Major depressive disorder, recurrent episode with anxious distress F33.9 [place] [address] [place] [id number] [place] [address] 04180- 4217 Jul, Fibromyalgia M79.7 [place] [address] [place] [id number] [place] [address] 52037- 0078 Jul, Generalized anxiety disorder F41.1 [place] [address] [place] [id number] [place] [address] 37656- 2323 May, [place] [address] [place] [id number] [place] [address] 45155- 9455 May, Hypothyroid E03.9 [place] [address], [place] [address]- 0971 08 May, 2016 Chronic kidney disease, stage 4 (severe) N18.4 ; Hypothyroid E03.9 ; Restless leg G25.81 ; Fibromyalgia M79.7 ; Essential ( primary) hypertension I10 ; Vitamin D deficiency E55.9 ; Dyspepsia R10.13 ; Acute non-recurrent maxillary sinusitis J01.00 ; Anemia in chronic kidney disease D63.1 ; Chronic kidney disease, unspecified N18.9 and Coronary artery disease involving penobscot coronary artery of penobscot heart, angina presence unspecified I25.10 [place] [address] [place] [id number] [place] [address] 59719- 8528 May, Vitamin D deficiency, unspecified E55.9 [place] [address] [place] [id number] [place] [address] 11983- 0736 May, Generalized anxiety disorder F41.1 and Major depressive disorder, recurrent episode with anxious distress F33.9 [place] [address] [place] [id number] [place] [address] 78418- 3577 Apr, Pain in right knee M25.561 and Pain in left knee M25.562 [place] [address] [place] [id number] [place] [address] 35884- 5465 Apr, [place] [address] [place] [id number] [place] [address] 07624- 1208 Apr, [place] [address] [place] [id number] [place] [address] 74872- 9111 Apr, [place] [address] [place] [id number] [place] [address] 38410- 1110 Mar, Generalized anxiety disorder F41.1 and Major depressive disorder, recurrent episode with anxious distress F33.9 [place] [address] [place] [id number] [place] [address] 19956- 2362 Mar, Generalized anxiety disorder F41.1 and Major depressive disorder, recurrent episode with anxious distress F33.9 [place] [address] [place] [address] [place] [address]- 2606 Mar, [facility] [address] [place] [id number] [place] [address] 56036- 3816 Mar, [facility] [address] [place] [id number] [place] [address] 86357- 6323 Mar, [facility] [address] 51834- 4370 Mar, Asthma J45.909 and Fibromyalgia M79.7 [facility] [address] 34948- 6461 Mar, Chronic kidney disease, stage 4 (severe) N18.4 ; Vitamin D deficiency E55.9 and Essential (primary) hypertension I10 [place] [address] [place] [id number] [place] [address] 22378- 1169 Feb, [facility] [address] 59627- 7422 Feb, Dysuria R30.0 ; Mixed stress and urge urinary incontinence N39.46 ; Fibromyalgia M79.7 and Chronic kidney disease, stage IV (severe) N18.4 [place] [address] [place] [id number] [place] [address] 00489- 7289 Feb, Chronic kidney disease, stage 4 (severe) N18.4 [place] [address] [place] [id number] [place] [address] 90016- 2664 Feb, Chronic kidney disease, stage 4 (severe) N18.4 [facility] [address] [place] [id number] [place] [address] 45419- 9001 Feb, [facility] [address] 74908- 5046 Feb, Vitamin D deficiency, unspecified E55.9 [facility] [address] [place] [id number] [place] [address] 39999- 8564 Jan, [facility] [address] [place] [address]- 3933 Jan, [facility] [address] [place] [id number] [place] [address] 49520- 1254 Dec, [facility] [address] [place] [id number] [place] [address] 74975- 5998 Dec, Chronic kidney disease, stage 4 (severe) N18.4 [facility] [address] [place] [id number] [place] [address] 68972- 2866 Dec, Dysthymic disorder F34.1 and Generalized anxiety disorder F41.1 [facility] [address] [place] [id number] [place] [address] 32886- 7163 Dec, [facility] [address] [place] [id number] [place] [address] 11138- 8282 Dec, [facility] [address] [place] [id number] [place] [address] 18631- 7827 Dec, Dysthymic disorder F34.1 and Generalized anxiety disorder F41.1 [facility] [address] [place] [id number] [place] [address] 49040- 8431 Dec, Dysuria R30.0 ; Chronic kidney disease, stage 4 (severe) N18.4 ; Hypertension I10 ; Dyspepsia R10.13 ; Yeast dermatitis B37.2 ; Palpitations R00.2 ; Hypothyroid E03.9 ; Functional diarrhea K59.1 and Other seasonal allergic rhinitis J30.2 [facility] [id number] [place] [address] 29721 -6735 Dec, [facility] [id number] [place] [address] 00667 -6863 Nov, Dysuria R30.0 and Stress incontinence N39.3 [facility] [id number] [place] [address] 36980- 5607 Nov, [facility] [address] [place] [id number] [place] [address] 80397- 6873 Nov, [place] [address] [place] [id number] [place] [address] 48280- 2245 Nov, Osteoarthritis of knees, bilateral M17.0 [place] [address] 95536- 9330 Nov, Dysthymic disorder F34.1 and Generalized anxiety disorder F41.1 [place] [address] 13699- 9348 Nov, [place] [address] 79492- 3907 Nov, [place] [address] 81019- 8563 Nov, Urgency of urination R39.15 [place] [address] 40093- 4929 Nov, [place] [address] 85116- 0163 Nov, Chronic kidney disease, stage 4 (severe) N18.4 [place] [address] 89410- 4974 Oct, Hypertension I10 ; Coronary artery disease involving penobscot coronary artery of penobscot heart, angina presence unspecified I25.10 ; Palpitations R00.2 ; Hypothyroid E03.9 ; Right foot pain M79.671 ; Functional diarrhea K59.1 and Other seasonal allergic rhinitis J30.2 [place] [address] [place] [id number] [place] [address] 52788- 3678 Oct, Dysthymic disorder F34.1 and Generalized anxiety disorder F41.1 [place] [address] 02735- 3770 Sep, [place] [address] [place] [id number] [place] [address] 50052- 5160 Sep, [place] [address] 08426- 0585 Sep, [place] [id number] [place] [address] 95842- 8771 Sep, [place] [address] [place] [id number] [place] [address] 44408- 0333 Sep, [place] [address] [place] [id number] [place] [address] 91356- 5927 Sep, Dysthymic disorder F34.1 and Generalized anxiety disorder F41.1 [place] [id number] [place] [address] 16681- 6805 16 Sep, 2015 Asthma with acute exacerbation in adult J45.901 ; Dysuria R30.0 ; Chronic kidney disease, stage 4 (severe) N18.4 and History of anemia Z86.2 [place] [id number] [place] [address] 23045- 5090 Sep, Generalized anxiety disorder F41.1 and Dysthymic disorder F34.1 [place] [id number] [place] [address] 49078- 5457 August, Screening breast examination Z12.39 and Acute recurrent maxillary sinusitis J01.01 [place] [id number] [place] [address] 57065- 8596 August, Osteoarthritis of knees, bilateral M17.0 [place] [id number] [place] [address] 46990- 9757 August, Chronic kidney disease, stage 4 (severe) N18.4 ; Acute non- recurrent maxillary sinusitis J01.00 ; Urinary problem R39.89 ; Bowel habit changes R19.4 ; Functional diarrhea K59.1 and History of colon polyps Z86.010 [place] [id number] [place] [address] 41239- 7882 Jul, Dysthymic disorder F34.1 and Generalized anxiety disorder F41.1 [place] [id number] [place] [address] 44492- 9616 Jul, [facility] [address], [place] [address] 9200 Jul, Dysthymic disorder F34.1 ; Generalized anxiety disorder F41.1 and [facility]FP use of drug Z79.899 [facility] [address], [place] [address] 2149 13 Jul, 2015 [facility] [id number] [place] [address] 07506- 4516 16 Jun, 2015 [facility] [id number] [place] [address] 20056- 5487 Jun, [place] [id number] [place] [address] 17356- 0024 May, [place] [id number] [place] [address] 80335- 5408 May, Dysthymic disorder F34.1 and Generalized anxiety disorder F41.1 [place] [id number] [place] [address] 24817- 4676 Apr, Kidney disease N28.9 [place] [id number] [place] [address] 93992- 7260 Apr, Generalized anxiety disorder F41.1 and Dysthymic disorder F34.1 [place] [address], [place] [address]- 0495 Apr, Chronic kidney disease, stage 4 (severe) N18.4 [facility] [address], [place] [address]- 8281 Apr, Generalized anxiety disorder F41.1 ; Major depression, recurrent F33.9 and Sleep disturbance G47.9 [place] [id number] [place] [address] 98127- 3438 Mar, Generalized anxiety disorder F41.1 and Dysthymic disorder F34.1 [place] [id number] [place] [address] 73317- 9436 Mar, Generalized anxiety disorder F41.1 ; Dysthymic disorder F34.1 and Insomnia G47.00 [facility] [id number] [place] [address] 62779- 8641 Mar, [facility] [id number] [place] [address] 80512- 9332 Mar, [facility] [address] 24278- 5960 Mar, Osteoarthritis of knees, bilateral M17.0 [facility] [id number] [place] [address] 27412- 7694 Mar, Hypertension I10 ; Hypothyroid E03.9 ; Dysthymic disorder F34.1 ; Chronic kidney disease, stage 4 (severe) N18.4 and Nausea & vomiting R11.2 [facility] [id number] [place] [address] 22558- 3290 Mar, Generalized anxiety disorder F41.1 ; Dysthymic disorder F34.1 and Insomnia G47.00 [facility] [id number] [place] [address] 78293- 4977 Mar, Dehydration E86.0 ; Chronic kidney disease, stage 4 (severe ) N18.4 and Nausea & vomiting R11.2 [facility] [id number] [place] [address] 43392 -1666 Mar, Gastroenteritis K52.9 [facility] [id number] [place] [address] 97050- 2807 Mar, [facility] [id number] [place] [address] 52465- 2648 Mar, [facility] [id number] [place] [address] 64303- 2557 Feb, Dysthymic disorder F34.1 and Generalized anxiety disorder F41.1 [facility] [id number] [place] [address] 67885- 9813 Jan, UTI (urinary tract infection) N39.0 ; Asthma J45.909 ; Coronary artery disease involving penobscot coronary artery of penobscot heart, angina presence unspecified I25.10 ; Hypertension I10 ; Hypothyroid E03.9 ; Vitamin D deficiency E55.9 ; Insomnia G47.00 ; Palpitations R00.2 ; Depressed F32.9 ; Restless leg G25.81 and Anxiety F41.[address] 08997- 3954 Jan, Dysthymic disorder F34.1 and Generalized anxiety disorder F41.[address] 47849- 9537 Jan, [address] 08941- 8367 Dec, [place] [address] 11736- 4245 Dec, Alkalosis 276.3 ; Chronic kidney disease, Stage IV (severe) 585.4 ; Hyperpotassemia 276.7 ; Secondary hyperparathyroidism, renal 588.81 ; Proteinuria 791.0 ; Unspecified vitamin D deficiency 268.9 ; Anemia in chronic kidney disease 285.21 ; Other and unspecified hyperlipidemia 272.4 ; Hypertension, essential, benign 401.1 and Chronic kidney disease (CKD), stage III (moderate) 585.3 [place] [id number] [place] [address] 53482- 8224 Dec, [place] [id number] [place] [address] 14394- 0346 Dec, Depressive disorder, not elsewhere classified 311 and Generalized anxiety disorder 300.02 [place] [id number] [place] [address] 84140- 1778 Dec, [place] [id number] [place] [address] 37263- 0994 Dec, [place] [id number] [place] [address] 18433- 3151 Nov, Depressive disorder, not elsewhere classified 311 and Generalized anxiety disorder 300.02 [place] [id number] [place] [address] 45600- 6964 Nov, Arthritis of both knees 716.96 [place] [id number] [place] [address] 42031- 0707 Nov, PAF (paroxysmal atrial fibrillation) 427.31 ; CAD (coronary artery disease) 414.00 ; Chest pain 786.50 and Chronic kidney disease (CKD) stage G4/A1, severely decreased glomerular filtration rate (GFR) between 15-29 mL/min/1.73 square meter and albuminuria creatinine ratio less than 30 mg/g 585.[address] 42109- 8823 Oct, Coronary atherosclerosis of unspecified type of vessel, penobscot or graft 414.00 ; Chronic kidney disease, Stage IV (severe) 585.4 ; Hypertension 401.9 and Edema 782.3 [place] [id number] [place] [address] 51408- 0583 Oct, Depressive disorder, not elsewhere classified 311 and Generalized anxiety disorder 300.02 [place] [id number] [place] [address] 70832- 4057 Oct, Depressive disorder, not elsewhere classified 311 and Generalized anxiety disorder 300.02 [place] [id number] [place] [address] 78318- 8383 Oct, [place] [id number] [place] [address] 32485- 0911 Oct, [place] [id number] [place] [address] 01281- 0584 Sep, [place] [id number] [place] [address] 12038- 6700 Sep, Chronic kidney disease, Stage IV (severe) 585.4 [place] [id number] [place] [address] 30485- 5266 Sep, [id number] [place] [address] 90152- 0168 Sep, Coronary atherosclerosis of unspecified type of vessel, penobscot or graft 414.00 ; Hypertension 401.9 ; Edema 782.3 and Hypothyroidism 244.9 [facility] [id number] [place] [address] 96258- 9635 Sep, Coronary atherosclerosis of unspecified type of vessel, penobscot or graft 414.00 ; Hypertension 401.9 ; Fibromyalgia 729.1 ; Edema 782.3 ; Hypothyroidism 244.9 and Anemia 285.9 [facility] [id number] [place] [address] 00221- 7387 Sep, Anxiety disorder, unspecified 300.00 and Depressive disorder , not elsewhere classified 311 [facility] [id number] [place] [address] 08601- 9675 Sep, [facility] [address] 42427- 2563 August, Generalized anxiety disorder 300.02 [facility] [id number] [place] [address] 73051- 8923 August, Closed fracture of lateral malleolus 824.2 [facility] [id number] [place] [address] 64909- 1029 Jul, [facility] [id number] [place] [address] 07791- 9862 Jul, [facility] [id number] [place] [address] 38212- 8853 Jun, [facility] [id number] [place] [address] 86789- 1465 Jun, [facility] [id number] [place] [address] 53316- 9710 Jun, [facility] [id number] [place] [address] 43404- 7720 Jun, [facility] [id number] [place] [address] 73775- 7513 Jun, [facility] [place] [facility] [address] [id number] [place] [address]- 6983 Jun, [facility] [place] [facility] [address] [id number] [place] [address]- 9536 May, 2014 [facility] [place] [facility] [address] [facility] [id number] [place] [address]- 6196 May, 2014 [facility] [place] [facility] [address] [id number] [place] [address]- 8931 May, 2014 [facility] [place] [facility] [address] [id number] [place] [address]- 6658 May, 2014 [facility] [place] [facility] [address] [facility] [id number] [place] [address]- 4135 16 May, 2014 [facility] [place] [facility] [address] [facility] [id number] [place] [address]- 5291 16 May, 2014 [facility] [place] [facility] [address] [facility] [id number] [place] [address]- 4878 13 May, 2014 [facility] [place] [facility] [id number] [place] [address]- 9451 13 May, 2014 [facility] [place] [facility] [address] [facility] [id number] [place] [address]- 7796 10 May, 2014 [facility] [place] [facility] [address] [facility] [id number] [place] [address]- 5469 10 May, 2014 [facility] [place] [facility] [address] [facility] [id number] [place] [address]- 0572 Apr, [facility] [place] [facility] [address] [id number] [place] [address]- 0228 Apr, [facility] [place] [facility] [address] [facility] [id number] [place] [address]- 3698 Mar, [facility] [place] [facility] [address] [facility] [id number] [place] [address]- 4144 Mar, [facility] [place] [facility] [address] [id number] [place] [address]- 9155 Mar, [facility] [place] [facility] [address] [id number] [place] [address]- 6888 Mar, [facility] [place] [facility] [address] [id number] [place] [address]- 5884 Mar, [facility] [place] [facility] [address] [id number] [place] [address]- 2135 Mar, [facility] [place] [facility] [address] [id number] [place] [address]- 2222 Mar, [facility] [place] [facility] [address] [id number] [place] [address]- 2196 Feb, [facility] [place] [facility] [address] [id number] [place] [address]- 1426 Feb, [facility] [place] [facility] [address] [id number] [place] [address]- 3251 Feb, [facility] [place] [facility] [address] [id number] [place] [address]- 1060 Jan, [facility] [place] [facility] [address] [id number] [place] [address]- 4186 Jan, [facility] [place] [facility] [address] [id number] [place] [address]- 2960 Jan, [facility] [place] [facility] [address] [id number], [place] [address]- 4733 Jan, [facility] [place] [facility] [address] [id number] [place] [address]- 8960 Jan, [facility] [place] [facility] [address] [id number] [place] [address]- 5238 Jan, [facility] [place] [facility] [address] [id number] [place] [address]- 7064 Jan, [facility] [place] [facility] [address] [id number] [place] [address]- 0617 Jan, [facility] [place] [facility] [address] [id number] [place] [address]- 4651 Jan, [facility] [place] [facility] [address] [id number] [place] [address]- 3998 Jan, [facility] [place] [facility] [address] [id number] [place] [address]- 5353 Nov, [facility] [place] [facility] [address] [id number] [place] [address]- 5760 Nov, [facility] [place] [facility] [address] [id number] [place] [address]- 1911 Nov, [facility] [place] [facility] [address] [id number] [place] [address]- 7631 Oct, [facility] [place] [facility] [address] [id number] [place] [address]- 6675 Oct, [facility] [place] [facility] [address] [id number] [place] [address]- 9632 Oct, [facility] [place] [facility] [address] [id number] [place] [address]- 1629 Oct, [facility] [place] [facility] [address] [id number] [place] [address]- 4570 Oct, [facility] [place] [facility] [address] [id number] [place] [address]- 1817 Oct, [facility] [place] [facility] [address] [id number] [place] [address]- 9370 Oct, [facility] [place] [facility] [address] [id number] [place] [address]- 4126 Oct, [facility] [place] [facility] [address] [id number] [place] [address]- 7953 Oct, [facility] [place] [facility] [address] [id number] [place] [address]- 2500 Sep, [facility] [place] [facility] [address] [id number] [place] [address]- 6868 Sep, [facility] [place] [facility] [address] [id number] [place] [address]- 5964 Sep, [facility] [place] [facility] [address] [id number] [place] [address]- 9119 Sep, [facility] [place] [facility] [address] [id number] [place] [address]- 9274 Sep, [facility] [place] [facility] [address] [id number] [place] [address]- 8964 Sep, [facility] [place] [facility] [address] [id number] [place] [address]- 9462 Sep, [facility] [place] [facility] [address] [id number] [place] [address]- 9079 Sep, [facility] [place] [facility] [address] [id number] [place] [address]- 9162 Sep, [facility] [place] [facility] [address] [id number] [place] [address]- 1277 August, [facility] [place] [facility] [address] [id number] [place] [address]- 8654 August, [facility] [place] [facility] [address] [id number] [place] [address]- 8486 August, [facility] [place] [facility] [address] [id number] [place] [address]- 9208 August, [facility] [place] [facility] [address] [id number] [place] [address]- 9177 August, [facility] [place] [facility] [address] [id number] [place] [address]- 1162 August, [facility] [place] [facility] [address] [id number] [place] [address]- 9293 Jul, [facility] [place] [facility] [address] [id number] [place] [address]- 2933 Jul, [facility] [place] [facility] [address] [id number] [place] [address]- 9528 Jul, [facility] [place] [facility] [address] [id number] [place] [address]- 0793 Jul, [facility] [place] [facility] [address] [id number] [place] [address]- 5052 Jul, [facility] [place] [facility] [address] [id number] [place] [address]- 7332 Jul, [facility] [place] [facility] [address] [id number] [place] [address]- 8075 Jun, [facility] [place] [facility] [address] [id number] [place] [address]- 3708 Jun, [facility] [place] [facility] [address] [id number] [place] [address]- 6206 May, [facility] [place] [facility] [address] [id number] [place] [address]- 7315 May, [facility] [place] [facility] [address] [id number] [place] [address]- 0698 May, [facility] [place] [facility] [address] [id number] [place] [address]- 8103 May, [facility] [place] [facility] [address] [id number] [place] [address]- 4691 Apr, [facility] [place] [facility] [address] [id number] [place] [address]- 0509 Apr, [facility] [place] [facility] [address] [id number] [place] [address]- 1683 Mar, [facility] [place] [facility] [address] [id number] [place] [address]- 9665 Mar, [facility] [place] [facility] [address] [id number] [place] [address]- 3948 17 Mar, 2013 [facility] [place] [facility] [address] [id number] [place] [address]- 9603 17 Mar, 2013 [facility] [place] [facility] [address] [id number] [place] [address]- 4296 05 Mar, 2013 [facility] [place] [facility] [address] [id number] [place] [address]- 2133 Mar, [facility] [place] [facility] [address] [id number] [place] [address]- 1352 Feb, [facility] [place] [facility] [address] [id number] [place] [address]- 6684 Feb, [facility] [place] [facility] [address] [id number] [place] [address]- 0854 Feb, [facility] [place] [facility] [address] [id number] [place] [address]- 7843 Feb, [facility] [place] [facility] [address] [id number] [place] [address]- 7724 Feb, [facility] [place] [facility] [address] [id number] [place] [address]- 9940 Feb, [facility] [place] [facility] [address] [id number] [place] [address]- 3791 Jan, [facility] [place] [facility] [address] [id number] [place] [address]- 1904 24 Jan, 2013 [facility] [place] [facility] [address] [id number] [place] [address]- 0099 Jan, [facility] [place] [facility] [address] [id number] [place] [address]- 9891 Jan, [facility] [place] [facility] [address] [id number] [place] [address]- 4016 08 Jan, 2013 [facility] [place] [facility] [address] [id number] [place] [address]- 2546 Jan, [facility] [place] [facility] [address] [id number] [place] [address]- 3552 Dec, [facility] [address] [id number] [place] [address]- 0904 Dec, [facility] [place] [facility] [address] [id number] [place] [address]- 4820 Nov, [facility] [place] [facility] [address] [id number] [place] [address]- 3135 Nov, [facility] [place] [facility] [address] [id number] [place] [address]- 5314 Oct, [facility] [place] [facility] [address] [id number] [place] [address]- 1579 Oct, [facility] [place] [facility] [address] [id number] [place] [address]- 2670 Oct, [facility] [place] [facility] [address] [id number] [place] [address]- 9189 Oct, [facility] [place] [facility] [address] [id number] [place] [address]- 4397 Oct, [facility] [place] [facility] [address] [id number] [place] [address]- 0945 Oct, [facility] [place] [facility] [address] [id number] [place] [address]- 3164 Sep, [facility] [place] [facility] [address] [id number] [place] [address]- 0683 Sep, [facility] [place] [facility] [address] [id number] [place] [address]- 1492 Sep, [facility] [place] [facility] [address] [id number] [place] [address]- 3083 Sep, [facility] [place] [facility] [address] [id number] [place] [address]- 0713 August, [facility] [place] [facility] [address] [id number] [place] [address]- 0633 August, [facility] [place] [facility] [address] [id number] [place] [address]- 5557 August, [facility] [address] [id number] [place] 8912 August, [facility] [address] [id number] [place] 1115 August, [facility] [address] [id number] [place] [address]- 2212 Jul, [facility] [address] [id number] [place] [address]- 1524 Jul, [facility] [address] [id number] [place] [address] Jul, [facility] [address] [id number] [place] [address] Jul, [facility] [address] [id number] [place] [address] Jul, [facility] [address] [id number] [place] [address] Jul, [facility] [address] [id number] [place] [address] Jul, [facility] [address] [id number] [place] [address] Jul, [facility] [address] [id number] [place] [address] Jul, [facility] [address] [id number], [place] [address] Jul, [facility] [address] [id number] [place] [id number] Jun, [facility] [address] [id number] [place] [address] Jun, [facility] [address] [id number] [place] [address] Jun, [facility] [place] [facility] [address] [id number] [place] [address] Jun, [facility] [address] [id number] [place] [address] Jun, [facility] [address] [id number] [place] [address] May, [facility] [address] [id number] [place] [address] 18 May, 2012 [facility] [address] [id number] [place] [address] May, [facility] [address] [id number] [place] [address] Apr, [facility] [address] [id number] [place] [address] Apr, [facility] [address] [id number] [place] [address] Apr, [facility] [address] [id number] [place] [address] Apr, [facility] [address] [id number] [place] [address] Apr, [facility] [address] [id number] [place] [address] Apr, [facility] [address] [id number] [place] [address] Mar, [facility] [address] [id number] [place] [address] Mar, [facility] [place] [facility] [address] [id number] [place] [address] Mar, [facility] [place] [facility] [address] [id number] [place] [address] Mar, [facility] [address] [id number] [place] [address] Feb, [facility] [place] [facility] [address] [id number] [place] [address] Feb, [facility] [place] [facility] [address] [id number] [place] [address] Feb, [facility] [place] [facility] [address] [facility] [id number] [place] [address] Feb, [facility] [place] [facility] [address] [id number] [place] [address] Feb, [facility] [place] [facility] [address] [id number] [place] [address] Feb, [facility] [place] [facility] [address] [id number] [place] [address] Feb, [facility] [place] [facility] [address] [facility] [id number] [place] [address] Feb, [facility] [place] [facility] [address] [id number], [place] [address] Feb, [facility] [place] [facility] [address] [id number] [place] [address] Feb, [facility] [place] [facility] [address] [facility] [id number], [place] [address] Feb, [facility] [place] [facility] [address] [id number], [place] [address] Feb, [facility] [place] [facility] [address] [id number], [place] [address] Feb, [facility] [place] [facility] [address] [id number], [place] [address] Feb, [facility] [place] [facility] [address] [id number], [place] [address] Feb, [facility] [place] [facility] [address] [facility] [id number], [place] [address] Feb, [facility] [place] [facility] [address] [id number] [place] [address] 31 Jan, 2011 [facility] [place] [facility] [address] [id number] [place] [address] 31 Jan, 2011 [facility] [place] [facility] [address] [id number] [place] [address] 31 Jan, 2011 [facility] [place] [facility] [address] [id number] [place] [address] 31 Jan, 2011 [facility] [place] [facility] [address] [id number] [place] [address] 30 Jan, 2011 [facility] [place] [facility] [address] [id number] [place] [address] Jan, 2011 [facility] [place] [facility] [address] [id number] [place] [address] 25 Jan, 2011 [facility] [place] [facility] [address] [facility] [id number] [place] [address] 16 Jan, 2012 [facility] [place] [facility] [address] [id number] [place] [address] 16 Jan, 2012 [facility] [place] [facility] [address] [id number] [place] [address]70 15 Jan, 2012 [facility] [place] [facility] [address] [facility] [id number] [place] [address] 2991 15 Jan, 2012 [facility] [place] [facility] [address] [id number] [place] [address] Jan, [facility] [place] [facility] [address] [id number], [place] [address] 26 Dec, 2011 [facility] [place] [facility] [address] [id number] [place] [address] 26 Sep, 2011 [facility] [place] [facility] [address] [facility] [id number] [place] [address] 24 Sep, 2011 [facility] [place] [facility] [address] [id number] [place] [address]99 23 Sep, 2011 [facility] [place] [facility] [address] [id number] [place] [address] 7928 22 Dec, 2011 [facility] [place] [facility] [address] [id number] [place] [address] 2860 21 Dec, 2011 [facility] [place] [facility] [address] [id number] [place] [address]250 20 Dec, 2011 [facility] [place] [facility] [address] [id number] [place] [address] 8651 20 Dec, 2011 [facility] [place] [facility] [address] [id number] [place] [address]- 8266 07 Sep, 2011 [facility] [place] [facility] [address] [id number] [place] [address] 99[address] 06 Dec, 2011 [facility] [place] [facility] [address] [id number] [place] [address] 9067 06 Dec, 2011 [facility] [place] [facility] [address] [id number] [place] [address] 5166 05 Dec, 2011 [facility] [place] [facility] [address] [id number] [place] [address] 0392 23 Nov, 2011 [facility] [place] [facility] [address] [id number] [place] [address] 6057 17 Nov, 2011 [facility] [place] [facility] [address] [id number] [place] [address] 3540 13 Nov, 2011 [facility] [place] [facility] [address] [id number] [place] [address] Nov, [facility] [place] [facility] [address] [id number] [place] [address] 9246 08 Nov, 2011 [facility] [place] [facility] [address] [id number] [place] [address] 8158 Nov, [facility] [place] [facility] [address] [id number] [place] [address] 1553 Nov, [facility] [place] [facility] [address] [id number] [place] [address] 2546 Nov, [facility] [place] [facility] [address] [id number] [place] [address] Oct, [facility] [place] [facility] [address] [id number] [place] [address] Oct, [facility] [place] [facility] [address] [id number] [place] [address] 6746 Oct, [facility] [place] [facility] [address] [id number] [place] [address] Oct, [facility] [place] [facility] [address] [id number] [place] [address] 4466 Oct, [facility] [place] [facility] [address] [id number] [place] [address] 9051 Oct, [facility] [place] [facility] [address] [id number] [place] [address] 0977 Oct, [facility] [place] [facility] [address] [id number] [place] [address] 4841 Sep, [facility] [place] [facility] [address] [id number] [place] [address] 8978 Sep, [facility] [place] [facility] [address] [id number] [place] [address] 76[address] August, [facility] [place] [facility] [address] [id number] [place] [address] 4795 August, [facility] [place] [facility] [address] [id number] [place] [address] 7633 August, [facility] [place] [facility] [address] [id number] [place] [address] August, [facility] [place] [facility] [address] [id number] [place] [address] 99[address] Jul, [facility] [place] [facility] [address] [id number] [place] [address] 6026 Jul, [facility] [place] [facility] [address] [id number] [place] [address] 1786 06 Jul, 2011 [facility] [address] [id number] [place] [address] Jul, [facility] [address] [id number] [place] [address] 40[address] Jul, [facility] [address] [id number] [place] [address] Jul, [facility] [address] [id number] [place] [address] Jul, [facility] [address] [id number] [place] [address] 6184 Jul, [facility] [address] [id number] [place] [address] 1322 Jul, [facility] [address] [id number] [place] [address] 9336 Jun, [facility] [address] [id number] [place] [address] 1155 Jun, [facility] [address] [id number] [place] [address] 0893 15 Jun, 2011 [facility] [address] [id number] [place] [address] 4649 14 Jun, 2011 [facility] [address] [id number] [place] [address]290 Jun, [facility] [address] [id number] [place] [address]305 Jun, [facility] [place] [facility] [address] [id number] [place] [address] 8167 Jun, [facility] [address] [id number] [place] [address] 5[address] May, [facility] [address] [id number] [place] [address] 6794 May, [facility] [address] [id number] [place] [address] 0049 May, [facility] [place] [facility] [address] [id number] [place] [address] 6996 May, [facility] [place] [facility] [address] [id number] [place] [address]- 5596 May, [facility] [place] [facility] [address] [id number] [place] [address] 1426 Apr, [facility] [place] [facility] [address] [id number] [place] [address] 2698 Apr, [facility] [place] [facility] [address] [id number] [place] [address] 6896 Apr, [facility] [place] [facility] [address] [id number] [place] [address]- 1498 Apr, [facility] [place] [facility] [address] [id number] [place] [address]- 4383 Apr, [facility] [place] [facility] [address] [id number] [place] [address] 9994 Mar, [facility] [place] [facility] [address] [id number] [place] [address]- 0722 Mar, [facility] [place] [facility] [address] [id number] [place] [address]- 4261 Mar, [facility] [place] [facility] [address] [id number] [place] [address]- 5926 Mar, [facility] [place] [facility] [address] [id number] [place] [address]- 0336 Mar, [facility] [place] [facility] [address] [id number] [place] [address] 6816 Mar, [facility] [place] [facility] [address] [id number] [place] [address]- 7166 Mar, [facility] [place] [facility] [address] [id number] [place] [address]- 7629 11 Feb, 2011 [facility] [place] [facility] [address] [id number] [place] [address] Feb, [facility] [place] [facility] [address] [id number] [place] [address]- 8036 Feb, [facility] [place] [facility] [address] [id number] [place] [address]- 6596 Feb, [facility] [place] [facility] [address] [id number] [place] [address]- 7378 Jan, [facility] [place] [facility] [address] [id number] [place] [address]- 7135 Jan, [facility] [place] [facility] [address] [id number] [place] [address]- 9431 Jan, [facility] [place] [facility] [address] [id number] [place] [address] 3481 Jan, [facility] [place] [facility] [address] [id number] [place] [address]- 3901 Nov, [facility] [place] [facility] [address] [id number] [place] [address]- 8439 Mar, [facility] [place] [facility] [address] [id number] [place] [address]- 2343 Mar, [facility] [place] [facility] [address] [id number] [place] [address] 2546 Mar, [facility] [place] [facility] [address] [id number] [place] [address]- 2541 Mar, [facility] [place] [facility] [address] [id number] [place] [address]- 3359 Mar, [facility] [place] [facility] [address] [id number] [place] [address]- 5287 Mar, [facility] [place] [facility] [address] [id number] [place] [address]- 6401 Feb, [facility] [address] [facility] [id number] [place] [address]160 Feb, [facility] [address] [facility] [id number] [place] [address]- 7804 Jan, [facility] [address] [facility] [id number], [place] [address]- 9154 Jan, [facility] [address] [facility] [id number], [place] [address] Jan, IMMUNIZATIONS No Known Immunizations SOCIAL HISTORY Never Assessed REASON FOR VISIT After Hours Clinical Advice PLAN OF CARE VITAL SIGNS MEDICATIONS Unknown [...] 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
--- OUTSIDE RECORDS SUMMARY | 2018-05-29 09:01 | XMS REPORT ---
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 Name Role Phone ISABEL MAE Unavailable PROBLEMS Type Condition ICD9-CM Code XTJ31-HB Code Onset Dates Condition Status SNOMED Code Problem Long-term use of high-risk medication Z79.899 Active 552172187 Problem Abnormal chest CT R93.8 Active 933993393 Problem Generalized anxiety disorder F41.1 Active 52505122 Problem Low back pain M54.5 Active 183992026 Problem Dysthymic disorder F34.1 Active 67405651 Problem Depressed F32.9 Active 41265592 Problem Coronary artery disease involving umkumiut coronary artery of umkumiut heart, angina presence unspecified I25.10 Active 6191669826885 Problem Hypothyroid E03.9 Active 83546453 Problem Insomnia G47.00 Active 895816521 Problem Vitamin D deficiency E55.9 Active 85968538 Problem Asthma J45.909 Active 712393128 Problem Chronic kidney disease, unspecified N18.9 Active 481382307 Problem Palpitations R00.2 Active 11433864 Problem Anemia in chronic kidney disease D63.1 Active 582580616791622 Problem Primary osteoarthritis of left knee M17.12 Active 688579359 Problem Bipolar disorder, current episode manic without psychotic features F31.10 Active 444692645 Problem Restless leg syndrome G25.81 Active 60044733 Problem Seasonal allergic rhinitis due to pollen J30.1 Active 61029014 Problem Functional diarrhea K59.1 Active 22379216 Problem Chronic kidney disease, stage 4 (severe) N18.4 Active 518416540 Problem Restless leg G25.81 Active 46725943 Problem Mood disorder F39 Active 29595899 Problem Degenerative tear of medial meniscus of left knee M23.204 Active 832518576 Problem Body mass index (BMI) of 40.0-44.9 in adult Z68.41 Active 788545679 Problem Stage 3 chronic kidney disease N18.3 Active 671269588 Problem Asthma with acute exacerbation in adult J45.901 Active 668774146 Problem Other seasonal allergic rhinitis J30.2 Active 092060154 Problem History of colon polyps Z86.010 Active 360701716 Problem History of anemia Z86.2 Active 904997252 Problem Fibromyalgia M79.7 Active 414846203 Problem Essential (primary) hypertension I10 Active 12461718 Problem Hypokalemia E87.6 Active 91273677 Problem Mixed stress and urge urinary incontinence N39.46 Active [id number] ALLERGIES No Information ENCOUNTERS Encounter Location Date Diagnosis [place] [address] [address] Nov, [place] [address] [address] Oct, Generalized anxiety disorder F41.1 and Major depressive disorder, recurrent episode with anxious distress F33.9 [place] [address] 57843- 5694 Oct, [place] [address] 35[address]- 4092 Oct, Fibromyalgia M79.7 [place] [address] 29381- 2889 Sep, Restless leg syndrome G25.81 and Restless leg G25.81 [place] [address] [place] [id number] [place] [address] 80337- 1609 Sep, [place] [address] [address] 8[address] Sep, Seasonal allergic rhinitis due to pollen J30.1 ; Screening for breast cancer Z12.31 ; Chest pain at rest R07.9 ; Restless leg syndrome G25.81 ; Essential (primary) hypertension I10 and Depressed F32.9 [place] [address] [place] [id number] [place] [address] 28440- 5343 August, Fibromyalgia M79.7 [place] [address] [place] [address] August, [facility] [address] [place] [id number] [place] [address] 35115- 8631 August, [facility] [address] [place] [id number] [place] [address] 64750- [address] August, [address] R93.8 [place] [address] [place] [id number] [place] [address] 23489- 1471 August, Generalized anxiety disorder F41.1 and Major depressive disorder, recurrent episode with anxious distress F33.9 [place] [address] [place] [id number] [place] [address] 70943- [address] August, Abnormal chest [address] R93.8 [place] [address] [place] [id number] [place] [address] 64406- 8888 Jul, [place] [address] [place] [id number] [place] [address] 40362- 7804 Jul, Chronic kidney disease, stage 4 (severe) N18.4 [place] [address] [place] [id number] [place] [address] 19274- 1981 Jul, [place] [address] [place] [id number] [place] [address] 20240- 6665 Jul, Restless leg G25.81 ; Mixed stress and urge urinary incontinence N39.46 and Fibromyalgia M79.7 [place] [address] [place] [id number] [place] [address] 92921- 9406 Jul, Chronic kidney disease, stage 4 (severe) N18.4 [place] [address] [place] [id number] [place] [address] 22461- 3388 Jun, Orthostatic hypotension I95.1 ; Chronic kidney disease, stage 4 (severe) N18.4 ; Chest wall discomfort R07.89 and Body mass index (BMI) of 40.0-44.9 in adult Z68.41 [place] [address] [place] [id number] [place] [address] 99021- 8692 Jun, [facility] [address] [place] [address] 18665- 5702 Jun, Orthostatic hypotension I95.1 [facility] [address] [place] [id number] [place] [address] 95331- 3258 Jun, [facility] [address] [place] [id number] [place] [address] 51116 -2947 Jun, Orthostatic hypotension I95.1 ; Dysuria R30.0 and Acute cystitis without hematuria N30.00 [facility] [address] [place] [id number] [place] [address] 39750- 6666 Jun, [facility] [address] [place] [id number] [place] [address] 98888- 1635 Jun, Chronic kidney disease, stage 4 (severe) N18.4 [facility] [address] [place] [id number] [place] [address] 11643- 4925 Jun, Fibromyalgia M79.7 [facility] [address] [place] [id number] [place] [address] 01934- 8216 Jun, [facility] [address] [place] [id number] [place] [address] 72238- 4269 Jun, [facility] [address] [place] [id number] [place] [address] 45020- [address] May, [address] R93.8 and Stage 3 chronic kidney disease N18.3 [facility] [address] [place] [id number] [place] [address] 73846- 9754 May, Chronic kidney disease, stage 4 (severe) N18.4 [facility] [address] [place] [id number] [place] [address] 85216- 0751 May, Chronic kidney disease, stage 4 (severe) N18.4 [facility] [address] [place] [id number] [place] [address] 88092- [address] May, [address] R93.8 [facility] [address] [address]- 7656 May, [facility] [address] [address]- 9390 May, [facility] [address] [address]- 7681 May, Generalized anxiety disorder F41.1 and Major depressive disorder, recurrent episode with anxious distress F33.9 [facility] [address] [address]- 1280 May, Mood disorder F39 [facility] [address] [place] [address] 49170- 6011 Apr, [facility] [address] [address]- 5351 Apr, Infected skin lesion L08.9 and Muscle strain of right shoulder region, initial encounter S46.911A [facility] [address] [address]- 6120 Apr, Generalized anxiety disorder F41.1 and Major depressive disorder, recurrent episode with anxious distress F33.9 [facility] [address] [address]- 3970 Apr, [facility] [address] [address]- 6701 Apr, Recent urinary tract infection Z87.440 and Hypothyroid E03.9 [facility] [address] [address]- 3985 Apr, Generalized anxiety disorder F41.1 and Major depressive disorder, recurrent episode with anxious distress F33.9 [facility] [address] [address]- 9891 Apr, Recent urinary tract infection Z87.440 [facility] [address] [address] 1999 Mar, [facility] [address] [address] Mar, Dysuria R30.0 ; Acute cystitis without hematuria N30.00 and BMI 40.0-44.9, adult Z68.41 [facility] [address] [address]- 2660 14 Mar, 2017 [place] [address] [place] [id number] [place] [address] 73680- 7478 Mar, [facility] [address] [place] [id number] [place] [address] 49238- 7000 Mar, Generalized anxiety disorder F41.1 and Major depressive disorder, recurrent episode with anxious distress F33.9 [place] [address] [place] [address] 83109- 9017 Feb, Conjunctivitis, bacterial H10.9 [place] [address] [place] [id number] [place] [address] 54924- 1116 Feb, [facility] [address] [place] [id number] [place] [address] 21088 -5053 Feb, Conjunctivitis, bacterial H10.9 [place] [address] [place] [address] 13005- 5170 Feb, [facility] [address] [address] Feb, Dysuria R30.0 ; Acute cystitis N30.00 and BMI 40.0-44.9, adult Z68.41 [place] [address] [place] [address] 48674- 6869 Feb, [place] [address] [place] [id number] [place] [address] 47224- 0587 Feb, Generalized anxiety disorder F41.1 and Major depressive disorder, recurrent episode with anxious distress F33.9 [place] [address] [place] [address] 85924- 7649 Feb, Mood disorder F39 and BMI 40.0-44.9, adult Z68.41 [facility] [address] [place] [id number] [place] [address] 49382- 3771 Jan, [facility] [address] [place] [id number] [place] [address] 28865- 0280 Jan, [facility] [address] [place] [id number] [place] [address] 04317- 2806 Jan, Hypothyroid E03.9 [facility] [address] [place] [id number] [place] [address] 80237- 5277 Jan, [place] [address] [place] [id number] [place] [address] 31822- 1600 Jan, Chronic kidney disease, unspecified N18.9 ; Hypokalemia E87.6 ; Essential (primary) hypertension I10 ; Fibromyalgia M79.7 ; Coronary artery disease involving umkumiut coronary artery of umkumiut heart, angina presence unspecified I25.10 ; Hypothyroid E03.9 and Encounter for immunization Z23 [facility] [address] [place] [id number] [place] [address] 22421- 3757 Jan, Hypothyroid E03.9 [place] [address] [place] [id number] [place] [address] 01370- 0169 Jan, [facility] [address] [place] [id number] [place] [address] 71233- 3196 Dec, Vitamin D deficiency E55.9 [facility] [address] [place] [id number] [place] [address] 72577- 9185 Dec, Primary osteoarthritis of left knee M17.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 [facility] [address] [place] [id number] [place] [address] 42088- 6233 Dec, Fibromyalgia M79.7 [facility] [address] [place] [id number] [place] [address] 61646- 2052 18 Dec, 2016 Mood disorder F39 [facility] [address] [place] [address]- 3342 13 Dec, 2016 [facility] [address] [facility] [id number] [address]- 0103 13 Dec, 2016 Generalized anxiety disorder F41.1 and Major depressive disorder, recurrent episode with anxious distress F33.9 [facility] [address] [address]- 8897 11 Dec, 2016 [facility] [address] [address]- 8970 08 Dec, 2016 Streptococcal meningitis G00.2 [facility] [address] [place] [address] 57940- 8660 07 Dec, 2016 Streptococcal meningitis G00.2 [facility] [address] [address]- 9801 07 Dec, 2016 [facility] [address] [place] [address] 00620- 5249 06 Dec, 2016 Streptococcal meningitis G00.2 [facility] [address] [address]- 2269 06 Dec, 2016 [facility] [address] [place] [address] 27007- 7159 06 Dec, 2016 Major depressive disorder, recurrent episode with anxious distress F33.9 [facility] [address] [address]- 8225 Nov, Fever, unspecified fever cause R50.9 [facility] [address] [address]- 2970 24 Nov, 2016 [facility] [address] [place] [address] 32706- 8876 16 Nov, 2016 Hypothyroid E03.9 [facility] [address] [place] [id number] [address]- 4633 10 Nov, 2016 Generalized anxiety disorder F41.1 and Major depressive disorder, recurrent episode with anxious distress F33.9 [facility] [address] [address]- 8677 Nov, [facility] [address] [address] Oct, Dental examination Z01.20 [facility] [address] [place] [address] 38069- 5014 Oct, Generalized anxiety disorder F41.1 and Major depressive disorder, recurrent episode with anxious distress F33.9 [facility] [address] [place] [address] 07936- 7279 Oct, Chronic kidney disease, stage 4 (severe) N18.4 [facility] [address] [place] [id number] [place] [address] 40082- 8149 Oct, [place] [address] [place] [id number] [place] [address] 80539- 6134 Oct, Fibromyalgia M79.7 [facility] [address] [place] [address] 97798- 4830 Oct, [facility] [address] [place] [id number] [place] [address] 51344- 0698 Oct, Generalized anxiety disorder F41.1 ; Major depressive disorder, recurrent episode with anxious distress F33.9 and Bipolar disorder, current episode manic without psychotic features F31.10 [place] [address] [address]- 6708 Sep, [facility] [id number] [place] [address] 65976- 2545 Sep, [facility] [address] [place] [address] 87786- 8206 Sep, Vitamin D deficiency E55.9 [facility] [address] [address]- 2547 14 Sep, 2016 Vitamin D deficiency E55.9 [facility] [address] [place] [address] 13455364- 1964 Sep, [place] [address] [place] [address] 82658- 7935 Sep, Chronic kidney disease, stage 4 (severe) N18.4 ; Hypothyroid E03.9 ; Restless leg G25.81 ; Fibromyalgia M79.7 ; Essential ( primary) hypertension I10 ; Vitamin D deficiency E55.9 ; Dyspepsia R10.13 ; Anemia in chronic kidney disease D63.1 ; Chronic kidney disease, unspecified N18.9 ; Coronary artery disease involving umkumiut coronary artery of umkumiut heart , angina presence unspecified I25.10 ; Screening breast examination Z12.39 and Low back pain M54.5 [place] [address] 07[address]- 4586 August, Generalized anxiety disorder F41.1 and Major depressive disorder, recurrent episode with anxious distress F33.9 [place] [address] [place] [id number] [place] [address] 63339- 4840 August, Generalized anxiety disorder F41.1 and Major depressive disorder, recurrent episode with anxious distress F33.9 [place] [address] [place] [id number] [place] [address] 35842- 8790 August, Fibromyalgia M79.7 [place] [address] [place] [address] [place] [address] 11997- 1093 Jul, Generalized anxiety disorder F41.1 and Major depressive disorder, recurrent episode with anxious distress F33.9 [place] [address] [place] [id number] [place] [address] 64723- 1215 Jul, Fibromyalgia M79.7 [place] [address] [place] [id number] [place] [address] 48712- 1545 Jul, Generalized anxiety disorder F41.1 [place] [address] [place] [address] [place] [address] 60161- 0329 May, [place] [address] [place] [id number] [place] [address] 50689- 9173 May, Hypothyroid E03.9 [place] [address] [address]- 4580 08 May, 2016 Chronic kidney disease, stage 4 (severe) N18.4 ; Hypothyroid E03.9 ; Restless leg G25.81 ; Fibromyalgia M79.7 ; Essential ( primary) hypertension I10 ; Vitamin D deficiency E55.9 ; Dyspepsia R10.13 ; Acute non-recurrent maxillary sinusitis J01.00 ; Anemia in chronic kidney disease D63.1 ; Chronic kidney disease, unspecified N18.9 and Coronary artery disease involving umkumiut coronary artery of umkumiut heart, angina presence unspecified I25.10 [place] [address] [place] [id number] [place] [address] 89788- 2475 May, Vitamin D deficiency, unspecified E55.9 [place] [address] [place] [id number] [place] [address] 20440- 0486 May, Generalized anxiety disorder F41.1 and Major depressive disorder, recurrent episode with anxious distress F33.9 [place] [address] [place] [id number] [place] [address] 35854- 2345 Apr, Pain in right knee M25.561 and Pain in left knee M25.562 [place] [address] [place] [address] [place] [address] 29307- 6518 Apr, [place] [address] [place] [id number] [place] [address] 40410- 6303 Apr, [place] [address] [place] [id number] [place] [address] 83632- 7378 Apr, [place] [address] [place] [id number] [place] [address] 94186- 8889 Mar, Generalized anxiety disorder F41.1 and Major depressive disorder, recurrent episode with anxious distress F33.9 [place] [address] [place] [address] [place] [address] 81102- 3398 Mar, Generalized anxiety disorder F41.1 and Major depressive disorder, recurrent episode with anxious distress F33.9 [place] [address] [place] [address] [place] [address]- 4292 Mar, [facility] [address] [place] [id number] [place] [address] 75473- 1868 Mar, [facility] [address] [place] [id number] [place] [address] 20772- 6940 Mar, [facility] [address] 63407- 2849 Mar, Asthma J45.909 and Fibromyalgia M79.7 [facility] [address] 83473- 1666 Mar, Chronic kidney disease, stage 4 (severe) N18.4 ; Vitamin D deficiency E55.9 and Essential (primary) hypertension I10 [place] [address] [place] [id number] [place] [address] 50436- 7470 Feb, [facility] [address] 08785- 2308 Feb, Dysuria R30.0 ; Mixed stress and urge urinary incontinence N39.46 ; Fibromyalgia M79.7 and Chronic kidney disease, stage IV (severe) N18.4 [place] [address] [place] [id number] [place] [address] 32138- 2968 Feb, Chronic kidney disease, stage 4 (severe) N18.4 [place] [address] [place] [id number] [place] [address] 13008- 8371 Feb, Chronic kidney disease, stage 4 (severe) N18.4 [facility] [address] [place] [id number] [place] [address] 76560- 7217 Feb, [facility] [address] 33172- 1127 Feb, Vitamin D deficiency, unspecified E55.9 [facility] [address] [place] [id number] [place] [address] 56166- 9645 Jan, [facility] [address] [place] [address]- 0046 Jan, [facility] [address] [place] [id number] [place] [address] 92302- 7020 Dec, [facility] [address] [id number] [place] [address] 64244- 5310 Dec, Chronic kidney disease, stage 4 (severe) N18.4 [facility] [address] [id number] [place] [address] 85843- 6266 Dec, Dysthymic disorder F34.1 and Generalized anxiety disorder F41.1 [facility] [address] [place] [id number] [place] [address] 50226- 0169 Dec, [facility] [id number] [place] [address] 98036- 3821 Dec, [facility] [id number] [place] [address] 22953- 1977 Dec, Dysthymic disorder F34.1 and Generalized anxiety disorder F41.1 [facility] [id number] [place] [address] 28818- 7926 Dec, Dysuria R30.0 ; Chronic kidney disease, stage 4 (severe) N18.4 ; Hypertension I10 ; Dyspepsia R10.13 ; Yeast dermatitis B37.2 ; Palpitations R00.2 ; Hypothyroid E03.9 ; Functional diarrhea K59.1 and Other seasonal allergic rhinitis J30.2 [facility] [address] [place] [address] 63951 -3311 Dec, [facility] [address] [place] [address] 13278 -4493 Nov, Dysuria R30.0 and Stress incontinence N39.3 [facility] [address] [place] [address] 37554- 6701 Nov, [facility] [id number] [place] [address]01- [address]101 Nov, [facility] [id number] [place] [address] 60266- 2406 Nov, Osteoarthritis of knees, bilateral M17.0 [facility] [address] [address]- [address] Nov, Dysthymic disorder F34.1 and Generalized anxiety disorder F41.1 [facility] [address] [address] Nov, [place] [facility] [address] [address]- [address] Nov, [facility] [address] 58082- [address] Nov, Urgency of urination R39.15 [facility] [address] [address]- [address] Nov, [facility] [address] [address] Nov, Chronic kidney disease, stage 4 (severe) N18.4 [facility] [address] [address]- [address] Oct, Hypertension I10 ; Coronary artery disease involving [place] coronary artery of [place] heart, angina presence unspecified I25.10 ; Palpitations R00.2 ; Hypothyroid E03.9 ; Right foot pain M79.671 ; Functional diarrhea K59.1 and Other seasonal allergic rhinitis J30.2 [facility] [id number] [place] [address] 46167- 8432 Oct, Dysthymic disorder F34.1 and Generalized anxiety disorder F41.1 [facility] [address] 15662- 3877 Sep, [facility] [id number] [place] [address] 07108- 1596 Sep, [facility] [address] [address] Sep, [facility] [id number] [place] [address] 46508- 3581 Sep, [facility] [id number] [place] [address] 57816- 0603 Sep, [facility] [address] [place] [id number] [place] [address] 68125- 3770 Sep, Dysthymic disorder F34.1 and Generalized anxiety disorder F41.1 [facility] [place] [id number] [place] [address] 33536- 2200 16 Sep, 2015 Asthma with acute exacerbation in adult J45.901 ; Dysuria R30.0 ; Chronic kidney disease, stage 4 (severe) N18.4 and History of anemia Z86.2 [place] [id number] [place] [address] 19128- 4074 Sep, Generalized anxiety disorder F41.1 and Dysthymic disorder F34.1 [facility] [id number] [place] [address] 29722- 4902 August, Screening breast examination Z12.39 and Acute recurrent maxillary sinusitis J01.01 [place] [id number] [place] [address] 57702- 6529 August, Osteoarthritis of knees, bilateral M17.0 [place] [id number] [place] [address] 39563- 1101 August, Chronic kidney disease, stage 4 (severe) N18.4 ; Acute non- recurrent maxillary sinusitis J01.00 ; Urinary problem R39.89 ; Bowel habit changes R19.4 ; Functional diarrhea K59.1 and History of colon polyps Z86.010 [facility] [place] [id number] [place] [address] 55824- 3315 Jul, Dysthymic disorder F34.1 and Generalized anxiety disorder F41.1 [facility] [place] [id number] [place] [address] 77389- 8239 Jul, [facility] [address] [address] 4495 Jul, Dysthymic disorder F34.1 ; Generalized anxiety disorder F41.1 and jail use of drug Z79.899 [facility] [address] [address]- 3508 13 Jul, 2015 [facility] [id number] [place] [address] 29310- 4668 16 Jun, 2015 [facility] [id number] [place] [address] 04338- 4599 Jun, [facility] [id number] [place] [address] 89353- 0586 May, [facility] [id number] [place] [address] 73006- 5409 May, Dysthymic disorder F34.1 and Generalized anxiety disorder F41.1 [facility] [place] [id number] [place] [address] 92726- 5119 Apr, Kidney disease N28.9 [facility] [id number] [place] [address] 37989- 7538 Apr, Generalized anxiety disorder F41.1 and Dysthymic disorder F34.1 [facility] [address] [address]- 0895 Apr, Chronic kidney disease, stage 4 (severe) N18.4 [facility] [address] [address]- 1447 Apr, Generalized anxiety disorder F41.1 ; Major depression, recurrent F33.9 and Sleep disturbance G47.9 [facility] [id number] [place] [address] 41247- 3899 Mar, Generalized anxiety disorder F41.1 and Dysthymic disorder F34.1 [facility] [id number] [place] [address] 49312- 0571 Mar, Generalized anxiety disorder F41.1 ; Dysthymic disorder F34.1 and Insomnia G47.00 [facility] [id number] [place] [address] 25796- 0513 Mar, [facility] [id number] [place] [address] 38101- 3719 Mar, [facility] [address] 17874- 7982 Mar, Osteoarthritis of knees, bilateral M17.0 [facility] [id number] [place] [address] 41843- 6763 Mar, Hypertension I10 ; Hypothyroid E03.9 ; Dysthymic disorder F34.1 ; Chronic kidney disease, stage 4 (severe) N18.4 and Nausea & vomiting R11.2 [facility] [id number] [place] [address] 66981- 8563 Mar, Generalized anxiety disorder F41.1 ; Dysthymic disorder F34.1 and Insomnia G47.00 [facility] [id number] [place] [address] 68429- 1368 Mar, Dehydration E86.0 ; Chronic kidney disease, stage 4 (severe ) N18.4 and Nausea & vomiting R11.2 [facility] [id number] [place] [address] 64341 -8647 Mar, Gastroenteritis K52.9 [facility] [id number] [place] [address] 60646- 3117 Mar, [facility] [id number] [place] [address] 91539- 9519 Mar, [facility] [id number] [place] [address] 57785- 3541 Feb, Dysthymic disorder F34.1 and Generalized anxiety disorder F41.1 [facility] [id number] [place] [address] 65734- 8137 Jan, UTI (urinary tract infection) N39.0 ; Asthma J45.909 ; Coronary artery disease involving umkumiut coronary artery of umkumiut heart, angina presence unspecified I25.10 ; Hypertension I10 ; Hypothyroid E03.9 ; Vitamin D deficiency E55.9 ; Insomnia G47.00 ; Palpitations R00.2 ; Depressed F32.9 ; Restless leg G25.81 and Anxiety F41.[address] 22089- 3045 Jan, Dysthymic disorder F34.1 and Generalized anxiety disorder F41.[address] 21825- 3140 Jan, [address] 38657- 8807 Dec, [facility] [address] 08494- 2999 Dec, Alkalosis 276.3 ; Chronic kidney disease, Stage IV (severe) 585.4 ; Hyperpotassemia 276.7 ; Secondary hyperparathyroidism, renal 588.81 ; Proteinuria 791.0 ; Unspecified vitamin D deficiency 268.9 ; Anemia in chronic kidney disease 285.21 ; Other and unspecified hyperlipidemia 272.4 ; Hypertension, essential, benign 401.1 and Chronic kidney disease (CKD), stage III (moderate) 585.3 [facility] [place] [id number] [place] [address] 08692- 7035 Dec, [facility] [id number] [place] [address] 01222- 1667 Dec, Depressive disorder, not elsewhere classified 311 and Generalized anxiety disorder 300.02 [facility] [place] [id number] [place] [address] 10064- 4295 Dec, [facility] [id number] [place] [address] 03993- 2825 Dec, [facility] [id number] [place] [address] 82309- 8061 Nov, Depressive disorder, not elsewhere classified 311 and Generalized anxiety disorder 300.02 [facility] [id number] [place] [address] 74029- 4733 Nov, Arthritis of both knees 716.96 [facility] [id number] [place] [address] 70891- 2420 Nov, PAF (paroxysmal atrial fibrillation) 427.31 ; CAD (coronary artery disease) 414.00 ; Chest pain 786.50 and Chronic kidney disease (CKD) stage G4/A1, severely decreased glomerular filtration rate (GFR) between 15-29 mL/min/1.73 square meter and albuminuria creatinine ratio less than 30 mg/g 585.[address] 32649- 6553 Oct, Coronary atherosclerosis of unspecified type of vessel, umkumiut or graft 414.00 ; Chronic kidney disease, Stage IV (severe) 585.4 ; Hypertension 401.9 and Edema 782.3 [place] [id number] [place] [address] 09082- 4295 Oct, Depressive disorder, not elsewhere classified 311 and Generalized anxiety disorder 300.02 [facility] [id number] [place] [address] 54682- 1809 Oct, Depressive disorder, not elsewhere classified 311 and Generalized anxiety disorder 300.02 [facility] [place] [id number] [place] [address] 93704- 8525 Oct, [facility] [id number] [place] [address] 89451- 8848 Oct, [facility] [id number] [place] [address] 04102- 6935 Sep, [place] [id number] [place] [address] 82554- 0647 Sep, Chronic kidney disease, Stage IV (severe) 585.4 [facility] [place] [id number] [place] [address] 72186- 9627 Sep, [id number] [place] [address] 38327- 8077 Sep, Coronary atherosclerosis of unspecified type of vessel, umkumiut or graft 414.00 ; Hypertension 401.9 ; Edema 782.3 and Hypothyroidism 244.9 [facility] [id number] [place] [address] 61440- 9078 Sep, Coronary atherosclerosis of unspecified type of vessel, umkumiut or graft 414.00 ; Hypertension 401.9 ; Fibromyalgia 729.1 ; Edema 782.3 ; Hypothyroidism 244.9 and Anemia 285.9 [facility] [id number] [place] [address] 16906- 8235 Sep, Anxiety disorder, unspecified 300.00 and Depressive disorder , not elsewhere classified 311 [facility] [id number] [place] [address] 98508- 7619 Sep, [facility] [address] 29219- 4581 August, Generalized anxiety disorder 300.02 [facility] [id number] [place] [address] 02379- 4657 August, Closed fracture of lateral malleolus 824.2 [facility] [id number] [place] [address] 68091- 9261 Jul, [facility] [id number] [place] [address] 60756- 4891 Jul, [facility] [id number] [place] [address] 95353- 9632 Jun, [facility] [id number] [place] [address] 51480- 0411 Jun, [facility] [id number] [place] [address] 15263- 7574 Jun, [facility] [id number] [place] [address] 51218- 4497 Jun, [facility] [id number] [place] [address] 15970- 5776 Jun, [facility] [place] [facility] [address] [id number] [place] [address]- 4909 Jun, [facility] [place] [facility] [address] [id number] [place] [address]- 1976 May, 2014 [facility] [place] [facility] [address] [facility] [id number] [place] [address]- 4386 May, 2014 [facility] [place] [facility] [address] [id number] [place] [address]- 2991 May, 2014 [facility] [place] [facility] [address] [id number] [place] [address]- 4673 May, 2014 [facility] [place] [facility] [address] [facility] [id number] [place] [address]- 7559 16 May, 2014 [facility] [place] [facility] [address] [facility] [id number] [place] [address]- 6064 16 May, 2014 [facility] [place] [facility] [address] [facility] [id number] [place] [address]- 7811 13 May, 2014 [facility] [place] [facility] [address] [id number] [address]- 7258 13 May, 2014 [facility] [place] [facility] [address] [facility] [id number] [place] [address]- 3736 10 May, 2014 [facility] [place] [facility] [address] [facility] [id number] [place] [address]- 1280 10 May, 2014 [facility] [place] [facility] [address] [facility] [id number] [place] [address]- 9286 Apr, [facility] [place] [facility] [address] [id number] [place] [address]- 8381 Apr, [facility] [place] [facility] [address] [facility] [id number] [place] [address]- 1318 Mar, [facility] [place] [facility] [address] [facility] [id number] [place] [address]- 5317 Mar, [facility] [place] [facility] [address] [id number] [place] [address]- 6475 Mar, [facility] [place] [facility] [address] [id number] [place] [address]- 7701 Mar, [facility] [place] [facility] [address] [id number] [place] [address]- 6818 Mar, [facility] [place] [facility] [address] [id number] [place] [address]- 4802 Mar, [facility] [place] [facility] [address] [id number] [place] [address]- 7967 Mar, [facility] [place] [facility] [address] [id number] [place] [address]- 6958 Feb, [facility] [place] [facility] [address] [id number] [place] [address]- 6709 Feb, [facility] [place] [facility] [address] [id number] [place] [address]- 4461 Feb, [facility] [place] [facility] [address] [id number] [place] [address]- 5246 Jan, [facility] [place] [facility] [address] [id number] [place] [address]- 2463 Jan, [facility] [place] [facility] [address] [id number] [place] [address]- 8436 Jan, [facility] [place] [facility] [address] [id number] [address]- 9838 Jan, [facility] [place] [facility] [address] [id number] [place] [address]- 1611 Jan, [facility] [place] [facility] [address] [id number] [place] [address]- 9365 Jan, [facility] [place] [facility] [address] [id number] [place] [address]- 9788 Jan, [facility] [place] [facility] [address] [id number] [place] [address]- 8082 Jan, [facility] [place] [facility] [address] [id number] [place] [address]- 6019 Jan, [facility] [place] [facility] [address] [id number] [place] [address]- 0238 Jan, [facility] [place] [facility] [address] [id number] [place] [address]- 1363 Nov, [facility] [place] [facility] [address] [id number] [place] [address]- 1563 Nov, [facility] [place] [facility] [address] [id number] [place] [address]- 7963 Nov, [facility] [place] [facility] [address] [id number] [place] [address]- 6958 Oct, [facility] [place] [facility] [address] [id number] [place] [address]- 0536 Oct, [facility] [place] [facility] [address] [id number] [place] [address]- 8688 Oct, [facility] [place] [facility] [address] [id number] [place] [address]- 4496 Oct, [facility] [place] [facility] [address] [id number] [place] [address]- 9678 Oct, [facility] [place] [facility] [address] [id number] [place] [address]- 6441 Oct, [facility] [place] [facility] [address] [id number] [place] [address]- 5262 Oct, [facility] [place] [facility] [address] [id number] [place] [address]- 0278 Oct, [facility] [place] [facility] [address] [id number] [place] [address]- 4529 Oct, [facility] [place] [facility] [address] [id number] [place] [address]- 4015 Sep, [facility] [place] [facility] [address] [id number] [place] [address]- 6905 Sep, [facility] [place] [facility] [address] [id number] [place] [address]- 3559 Sep, [facility] [place] [facility] [address] [id number] [place] [address]- 8367 Sep, [facility] [place] [facility] [address] [id number] [place] [address]- 7013 Sep, [facility] [place] [facility] [address] [id number] [place] [address]- 4824 Sep, [facility] [place] [facility] [address] [id number] [place] [address]- 7284 Sep, [facility] [place] [facility] [address] [id number] [place] [address]- 2447 Sep, [facility] [place] [facility] [address] [id number] [place] [address]- 5578 Sep, [facility] [place] [facility] [address] [id number] [place] [address]- 2022 August, [facility] [place] [facility] [address] [id number] [place] [address]- 5769 August, [facility] [place] [facility] [address] [id number] [place] [address]- 1609 August, [facility] [place] [facility] [address] [id number] [place] [address]- 1071 August, [facility] [place] [facility] [address] [id number] [place] [address]- 8129 August, [facility] [place] [facility] [address] [id number] [place] [address]- 3643 August, [facility] [place] [facility] [address] [id number] [place] [address]- 0213 Jul, [facility] [place] [facility] [address] [id number] [place] [address]- 4655 Jul, [facility] [place] [facility] [address] [id number] [place] [address]- 2209 Jul, [facility] [place] [facility] [address] [id number] [place] [address]- 4150 Jul, [facility] [place] [facility] [address] [id number] [place] [address]- 4675 Jul, [facility] [place] [facility] [address] [id number] [place] [address]- 9495 Jul, [facility] [place] [facility] [address] [id number] [place] [address]- 0476 Jun, [facility] [place] [facility] [address] [id number] [place] [address]- 9776 Jun, [facility] [place] [facility] [address] [id number] [place] [address]- 5717 May, [facility] [place] [facility] [address] [id number] [place] [address]- 6202 May, [facility] [place] [facility] [address] [id number] [place] [address]- 4660 May, [facility] [place] [facility] [address] [id number] [place] [address]- 0504 May, [facility] [place] [facility] [address] [id number] [place] [address]- 4006 Apr, [facility] [place] [facility] [address] [id number] [place] [address]- 9675 Apr, [facility] [place] [facility] [address] [id number] [place] [address]- 4301 Mar, [facility] [place] [facility] [address] [id number] [place] [address]- 8642 Mar, [facility] [place] [facility] [address] [id number] [place] [address]- 9239 17 Mar, 2013 [facility] [place] [facility] [address] [id number] [place] [address]- 9614 17 Mar, 2013 [facility] [place] [facility] [address] [id number] [place] [address]- 8365 05 Mar, 2013 [facility] [place] [facility] [address] [id number] [place] [address]- 7482 Mar, [facility] [place] [facility] [address] [id number] [place] [address]- 7216 Feb, [facility] [place] [facility] [address] [id number] [place] [address]- 1393 Feb, [facility] [place] [facility] [address] [id number] [place] [address]- 6425 Feb, [facility] [place] [facility] [address] [id number] [place] [address]- 6719 Feb, [facility] [place] [facility] [address] [id number] [place] [address]- 7311 Feb, [facility] [place] [facility] [address] [id number] [place] [address]- 3922 Feb, [facility] [place] [facility] [address] [id number] [place] [address]- 1214 Jan, [facility] [place] [facility] [address] [id number] [place] [address]- 2940 24 Jan, 2013 [facility] [place] [facility] [address] [id number] [place] [address]- 1464 Jan, [facility] [place] [facility] [address] [id number] [place] [address]- 0145 Jan, [facility] [place] [facility] [address] [id number] [place] [address]- 7706 08 Jan, 2013 [facility] [place] [facility] [address] [id number] [place] [address]- 2546 Jan, [facility] [place] [facility] [address] [id number] [place] [address]- 9118 Dec, [facility] [address] [id number] [place] [address]- 5787 Dec, [facility] [place] [facility] [address] [id number] [place] [address]- 0094 Nov, [facility] [place] [facility] [address] [id number] [place] [address]- 4148 Nov, [facility] [place] [facility] [address] [id number] [place] [address]- 6998 Oct, [facility] [place] [facility] [address] [id number] [place] [address]- 2801 Oct, [facility] [place] [facility] [address] [id number] [place] [address]- 2611 Oct, [facility] [place] [facility] [address] [id number] [place] [address]- 7298 Oct, [facility] [place] [facility] [address] [id number] [place] [address]- 0699 Oct, [facility] [place] [facility] [address] [id number] [place] [address]- 1570 Oct, [facility] [place] [facility] [address] [id number] [place] [address] Sep, [facility] [place] [facility] [address] [id number] [place] [address] Sep, [facility] [place] [facility] [address] [id number] [place] [address] Sep, [facility] [place] [facility] [address] [id number] [place] [address] Sep, [facility] [place] [facility] [address] [id number] [place] [address] August, [facility] [place] [facility] [address] [id number] [place] [address] August, [facility] [place] [facility] [address] [id number] [place] [address] August, [facility] [address] [id number] [place] [address] August, [facility] [address] [id number] [place] [address] August, [facility] [address] [id number] [place] [address] Jul, [facility] [address] [id number] [place] [address] Jul, [facility] [address] [id number] [place] [address] Jul, [facility] [address] [id number] [place] [address] Jul, [facility] [address] [id number] [place] [address] Jul, [facility] [address] [id number] [place] [address] Jul, [facility] [address] [id number] [place] [address] Jul, [facility] [address] [id number] [place] [address] Jul, [facility] [address] [id number] [place] [address] Jul, [facility] [address] [id number] [place] [address] Jul, [facility] [address] [id number] [id number] Jun, [facility] [address] [id number] [place] [address] Jun, [facility] [address] [id number] [place] [address] Jun, [facility] [place] [facility] [address] [id number] [place] [address] Jun, [facility] [address] [id number] [place] [address] Jun, [facility] [address] [id number] [place] [address] May, [facility] [address] [id number] [place] [address] 18 May, 2012 [facility] [address] [id number] [place] [address] May, [facility] [address] [id number] [place] [address] Apr, [facility] [address] [id number] [place] [address] Apr, [facility] [address] [id number] [place] [address] Apr, [facility] [address] [id number] [place] [address] Apr, [facility] [address] [id number] [place] [address] Apr, [facility] [address] [id number] [place] [address] Apr, [facility] [address] [id number] [place] [address] Mar, [facility] [address] [id number] [place] [address] Mar, [facility] [place] [facility] [address] [id number] [place] [address] Mar, [facility] [place] [facility] [address] [id number] [place] [address] Mar, [facility] [address] [id number] [place] [address] Feb, [facility] [place] [facility] [address] [id number] [place] [address] Feb, [facility] [place] [facility] [address] [id number] [place] [address] Feb, [facility] [place] [facility] [address] [facility] [id number] [place] [address] Feb, [facility] [place] [facility] [address] [id number] [place] [address] Feb, [facility] [place] [facility] [address] [id number] [place] [address] Feb, [facility] [place] [facility] [address] [id number] [place] [address] Feb, [facility] [place] [facility] [address] [facility] [id number] [place] [address] Feb, [facility] [place] [facility] [address] [id number] [place] [address] Feb, [facility] [place] [facility] [address] [address] [id number] [place] [address] Feb, [facility] [place] [facility] [address] [facility] [id number] [place] [address] Feb, [facility] [place] [facility] [address] [id number] [place] [address] Feb, [facility] [place] [facility] [address] [id number] [place] [address] Feb, [facility] [place] [facility] [address] [id number] [place] [address] Feb, [facility] [place] [facility] [address] [id number] [place] [address] Feb, [facility] [place] [facility] [address] [facility] [id number] [place] [address] Feb, [facility] [place] [facility] [address] [id number] [place] [address] 1397 31 Jan, 2011 [facility] [place] [facility] [address] [id number] [place] [address] 31 Jan, 2011 [facility] [place] [facility] [address] [id number] [place] [address] 31 Jan, 2011 [facility] [place] [facility] [address] [id number] [place] [address] 6036 31 Jan, 2011 [facility] [place] [facility] [address] [id number] [place] [address]- [address]69 30 Jan, 2011 [facility] [place] [facility] [address] [id number] [place] [address] Jan, 2011 [facility] [place] [facility] [address] [id number] [place] [address] 25 Jan, 2011 [facility] [place] [facility] [address] [facility] [id number] [place] [address] 9935 16 Jan, 2012 [facility] [place] [facility] [address] [id number] [place] [address] 4246 16 Jan, 2012 [facility] [place] [facility] [address] [id number] [place] [address] 4409 15 Jan, 2012 [facility] [place] [facility] [address] [facility] [id number] [place] [address]226 15 Jan, 2012 [facility] [place] [facility] [address] [id number] [place] [address] 45[address] Jan, [facility] [place] [facility] [address] [id number] [place] [address] 26 Dec, 2011 [facility] [place] [facility] [address] [id number] [place] [address]289 26 Sep, 2011 [facility] [place] [facility] [address] [facility] [id number] [place] [address]226 24 Sep, 2011 [facility] [place] [facility] [address] [id number] [place] [address] 2734 23 Sep, 2011 [facility] [place] [facility] [address] [id number] [place] [address]- 1067 22 Dec, 2011 [facility] [place] [facility] [address] [id number] [place] [address]- 8036 21 Dec, 2011 [facility] [place] [facility] [address] [id number] [place] [address] 20 Dec, 2011 [facility] [place] [facility] [address] [id number] [place] [address] 1440 20 Dec, 2011 [facility] [place] [facility] [address] [id number] [place] [address] 8532 07 Sep, 2011 [facility] [place] [facility] [address] [id number] [place] [address]- 1477 06 Dec, 2011 [facility] [place] [facility] [address] [id number] [place] [address] 6572 06 Dec, 2011 [facility] [place] [facility] [address] [id number] [place] [address]- 2527 05 Dec, 2011 [facility] [place] [facility] [address] [id number] [place] [address] 5904 23 Nov, 2011 [facility] [place] [facility] [address] [id number] [place] [address] 4651 17 Nov, 2011 [facility] [place] [facility] [address] [id number] [place] [address] 3749 13 Nov, 2011 [facility] [place] [facility] [address] [id number] [place] [address]- 1194 Nov, [facility] [place] [facility] [address] [id number] [place] [address] 6098 08 Nov, 2011 [facility] [place] [facility] [address] [id number] [place] [address] 1548 Nov, [facility] [place] [facility] [address] [id number] [place] [address] 4266 Nov, [facility] [place] [facility] [address] [id number] [place] [address] 2546 Nov, [facility] [place] [facility] [address] [id number] [place] [address] 1339 Oct, [facility] [place] [facility] [address] [id number] [place] [address] Oct, [facility] [place] [facility] [address] [id number] [place] [address]- 0416 Oct, [facility] [place] [facility] [address] [id number] [place] [address]- 7493 Oct, [facility] [place] [facility] [address] [id number] [place] [address] 9047 Oct, [facility] [place] [facility] [address] [id number] [place] [address]- 4859 Oct, [facility] [place] [facility] [address] [id number] [place] [address]- 5593 Oct, [facility] [place] [facility] [address] [id number] [place] [address]- [address]248 Sep, [facility] [place] [facility] [address] [id number] [place] [address]- 6369 Sep, [facility] [place] [facility] [address] [id number] [place] [address]- 4696 August, [facility] [place] [facility] [address] [id number] [place] [address]- 5187 August, [facility] [place] [facility] [address] [id number] [place] [address]- 5900 August, [facility] [place] [facility] [address] [id number] [place] [address]- 7916 August, [facility] [place] [facility] [address] [id number] [place] [address]- 1017 Jul, [facility] [place] [facility] [address] [id number] [place] [address]- 5446 Jul, [facility] [place] [facility] [address] [id number] [place] [address] 1976 06 Jul, 2011 [facility] [address] [id number] [place] [address]- 7529 Jul, [facility] [address] [id number] [place] [address] 8726 Jul, [facility] [address] [id number] [place] [address]- 7406 Jul, [facility] [address] [id number] [place] [address] 3121 Jul, [facility] [address] [id number] [place] [address]- 5177 Jul, [facility] [address] [id number] [place] [address]- 7968 Jul, [facility] [address] [id number] [place] [address]- 6408 Jun, [facility] [address] [id number] [place] [address]- 3219 Jun, [facility] [address] [id number] [place] [address]- 6963 15 Jun, 2011 [facility] [address] [id number] [place] [address]- 8823 14 Jun, 2011 [facility] [address] [id number] [place] [address]- 6441 Jun, [facility] [address] [id number] [place] [address]- 6594 Jun, [facility] [place] [facility] [address] [id number] [place] [address]- 3834 Jun, [facility] [address] [id number] [place] [address]- 2246 May, [facility] [address] [id number] [place] [address]- 8538 May, [facility] [address] [id number] [place] [address]- 9559 May, [facility] [place] [facility] [address] [id number] [place] [address]- 5856 May, [facility] [place] [facility] [address] [id number] [place] [address]- 0646 May, [facility] [place] [facility] [address] [id number] [place] [address]- 2666 Apr, [facility] [place] [facility] [address] [id number] [place] [address]- 7959 Apr, [facility] [place] [facility] [address] [id number] [place] [address]- 3006 Apr, [facility] [place] [facility] [address] [id number] [place] [address]- 6228 Apr, [facility] [place] [facility] [address] [id number] [place] [address]- 7134 Apr, [facility] [place] [facility] [address] [id number] [place] [address]- 5121 Mar, [facility] [place] [facility] [address] [id number] [place] [address]- 0702 Mar, [facility] [place] [facility] [address] [id number] [place] [address]- 7222 Mar, [facility] [place] [facility] [address] [id number] [place] [address]- 8802 Mar, [facility] [place] [facility] [address] [id number] [place] [address]- 7606 Mar, [facility] [place] [facility] [address] [id number] [place] [address]- 8206 Mar, [facility] [place] [facility] [address] [id number] [place] [address]- 2786 Mar, [facility] [place] [facility] [address] [id number] [place] [address]- 2966 11 Feb, 2011 [facility] [place] [facility] [address] [id number] [place] [address] Feb, [facility] [place] [facility] [address] [id number] [place] [address]- 2666 Feb, [facility] [place] [facility] [address] [id number] [place] [address]- 1456 Feb, [facility] [place] [facility] [address] [id number] [place] [address]- 4372 Jan, [facility] [place] [facility] [address] [id number] [place] [address]- 9004 Jan, [facility] [place] [facility] [address] [id number] [place] [address]- 7265 Jan, [facility] [place] [facility] [address] [id number] [place] [address]- 4294 Jan, [facility] [place] [facility] [address] [id number] [place] [address]- 7509 Nov, [facility] [place] [facility] [address] [id number] [place] [address]- 1756 Mar, [facility] [place] [facility] [address] [id number] [place] [address]- 6319 Mar, [facility] [place] [facility] [address] [id number] [place] [address] 2546 Mar, [facility] [place] [facility] [address] [id number] [place] [address]- 2547 Mar, [facility] [place] [facility] [address] [id number] [place] [address]- 7708 Mar, [facility] [place] [facility] [address] [id number] [place] [address]- 8976 Mar, [facility] [place] [facility] [address] [id number] [place] [address]- 6000 Feb, [facility] [address] [facility] [id number] [place] [id number] 30 Feb, 2010 [facility] [address] [facility] [id number] [place] [address] 28 Jan, 2009 [facility] [address] [facility] [id number] [place] [address]- 7206 Jan, [facility] [address] [facility] [id number] [place] [address]- 9386 Jan, IMMUNIZATIONS No Known Immunizations SOCIAL HISTORY Never Assessed REASON FOR VISIT Lab (walk-in) PLAN OF CARE VITAL SIGNS MEDICATIONS Unknown Medications RESULTS No Results PROCEDURES Procedure Date Ordered Result Body Site LAB NOT BILLED BY [facility] July 09, 2017 VENFAISAL, ROUTINE* July 09, 2017 INSTRUCTIONS MEDICATIONS ADMINISTERED No Known Medications [...] & 2007 Surgical History Bladder surgery [facility] 03/2016 Hospitalization History Surgeries Only Hospitalization History 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
--- OUTSIDE RECORDS SUMMARY | 2018-05-29 09:02 | XMS REPORT ---
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 Name Role Phone ISABEL MAE Unavailable PROBLEMS Type Condition ICD9-CM Code NVA59-TU Code Onset Dates Condition Status SNOMED Code Problem Long-term use of high-risk medication Z79.899 Active 565619656 Problem Abnormal chest CT R93.8 Active 741320010 Problem Generalized anxiety disorder F41.1 Active 22212502 Problem Low back pain M54.5 Active 118139813 Problem Dysthymic disorder F34.1 Active 14516772 Problem Depressed F32.9 Active 16923671 Problem Coronary artery disease involving [place] coronary artery of [place] heart, angina presence unspecified I25.10 Active 4328513131773 Problem Hypothyroid E03.9 Active 16008861 Problem Insomnia G47.00 Active 612259839 Problem Vitamin D deficiency E55.9 Active 08047315 Problem Asthma J45.909 Active 818882260 Problem Chronic kidney disease, unspecified N18.9 Active 824332096 Problem Palpitations R00.2 Active 11594143 Problem Anemia in chronic kidney disease D63.1 Active 624494558836381 Problem Primary osteoarthritis of left knee M17.12 Active 178309324 Problem Bipolar disorder, current episode manic without psychotic features F31.10 Active 420488866 Problem Restless leg syndrome G25.81 Active 78954331 Problem Seasonal allergic rhinitis due to pollen J30.1 Active 20214421 Problem Functional diarrhea K59.1 Active 77362555 Problem Chronic kidney disease, stage 4 (severe) N18.4 Active 107437152 Problem Restless leg G25.81 Active 51941253 Problem Mood disorder F39 Active 13943769 Problem Degenerative tear of medial meniscus of left knee M23.204 Active 955637690 Problem Body mass index (BMI) of 40.0-44.9 in adult Z68.41 Active 624986735 Problem Stage 3 chronic kidney disease N18.3 Active 797566278 Problem Asthma with acute exacerbation in adult J45.901 Active 599672330 Problem Other seasonal allergic rhinitis J30.2 Active 357036540 Problem History of colon polyps Z86.010 Active 922583164 Problem History of anemia Z86.2 Active 986997487 Problem Fibromyalgia M79.7 Active 780709674 Problem Essential (primary) hypertension I10 Active 03059382 Problem Hypokalemia E87.6 Active 77654504 Problem Mixed stress and urge urinary incontinence N39.46 Active 278114080 ALLERGIES No Information ENCOUNTERS Encounter Location Date Diagnosis [place] [address] [address] Nov, [place] [address] 03495- 7589 Oct, Generalized anxiety disorder F41.1 and Major depressive disorder, recurrent episode with anxious distress F33.9 [place] [address] 28330- 7960 Oct, [place] [address] 78347- 0788 Oct, Fibromyalgia M79.7 [place] [address] 08906- 7984 Sep, Restless leg syndrome G25.81 and Restless leg G25.81 [place] [address] [place] [id number] [place] [address] 35692- 1236 Sep, [place] [address] 06410- 2149 Sep, Seasonal allergic rhinitis due to pollen J30.1 ; Screening for breast cancer Z12.31 ; Chest pain at rest R07.9 ; Restless leg syndrome G25.81 ; Essential (primary) hypertension I10 and Depressed F32.9 [place] [address] [place] [id number] [place] [address] 16234- 8825 August, Fibromyalgia M79.7 [place] [address] [place] [address] August, [facility] [address] [place] [id number] [place] [address] 36617- 9599 August, [facility] [address] [place] [id number] [place] [address] 70368- 7351 August, [address] R93.8 [place] [address] [place] [id number] [place] [address] 51748- 5064 August, Generalized anxiety disorder F41.1 and Major depressive disorder, recurrent episode with anxious distress F33.9 [place] [address] [place] [id number] [place] [address] 93185- 1403 August, Ab[address] chest [address] R93.8 [place] [address] [place] [id number] [place] [address] 54821- 4985 Jul, [place] [address] [place] [id number] [place] [address] 63998- 4514 Jul, Chronic kidney disease, stage 4 (severe) N18.4 [place] [address] [place] [id number] [place] [address] 50345- 7450 Jul, [place] [address] [place] [id number] [place] [address] 72246- 7997 Jul, Restless leg G25.81 ; Mixed stress and urge urinary incontinence N39.46 and Fibromyalgia M79.7 [place] [address] [place] [id number] [place] [address] 57357- 2708 Jul, Chronic kidney disease, stage 4 (severe) N18.4 [place] [address] [place] [id number] [place] [address] 50399- 7406 Jun, Orthostatic hypotension I95.1 ; Chronic kidney disease, stage 4 (severe) N18.4 ; Chest wall discomfort R07.89 and Body mass index (BMI) of 40.0-44.9 in adult Z68.41 [place] [address] [place] [id number] [place] [address] 04165- 7994 Jun, [facility] [id number] [place] [address] 60019- 8160 Jun, Orthostatic hypotension I95.1 [facility] [address] [place] [id number] [place] [address] 53738- 9813 Jun, [facility] [address] [place] [id number] [place] [address] 22611 -9793 Jun, Orthostatic hypotension I95.1 ; Dysuria R30.0 and Acute cystitis without hematuria N30.00 [facility] [address] [place] [id number] [place] [address] 40572- 6313 Jun, [facility] [address] [place] [id number] [place] [address] 60310- 6986 Jun, Chronic kidney disease, stage 4 (severe) N18.4 [facility] [address] [place] [id number] [place] [address] 11375- 1104 Jun, Fibromyalgia M79.7 [facility] [address] [place] [id number] [place] [address] 64619- 4510 Jun, [facility] [address] [place] [id number] [place] [address] 85201- 3853 Jun, [facility] [address] [place] [id number] [place] [address] 32500- [address] May, [address] R93.8 and Stage 3 chronic kidney disease N18.3 [facility] [address] [place] [id number] [place] [address] 94179- 8474 May, Chronic kidney disease, stage 4 (severe) N18.4 [facility] [address] [place] [id number] [place] [address] 87104- 6827 May, Chronic kidney disease, stage 4 (severe) N18.4 [facility] [address] [place] [id number] [place] [address] 98716- [address] May, [address] R93.8 [facility] [address] [address]- 6111 May, [facility] [address] [address]- 6781 May, [facility] [address] [address]- 7257 May, Generalized anxiety disorder F41.1 and Major depressive disorder, recurrent episode with anxious distress F33.9 [facility] [address] [address]- 1753 May, Mood disorder F39 [facility] [id number] [place] [address] 58292- 5935 Apr, [facility] [address] [address] 8040 Apr, Infected skin lesion L08.9 and Muscle strain of right shoulder region, initial encounter S46.911A [facility] [address] [address]- 5919 Apr, Generalized anxiety disorder F41.1 and Major depressive disorder, recurrent episode with anxious distress F33.9 [facility] [address] [address]- 6778 Apr, [facility] [address] [address]- 9420 Apr, Recent urinary tract infection Z87.440 and Hypothyroid E03.9 [facility] [address] [address]- 6913 Apr, Generalized anxiety disorder F41.1 and Major depressive disorder, recurrent episode with anxious distress F33.9 [facility] [address] [address]- 9884 Apr, Recent urinary tract infection Z87.440 [facility] [address] [address]- 8863 Mar, [facility] [address] [address] -5981 Mar, Dysuria R30.0 ; Acute cystitis without hematuria N30.00 and BMI 40.0-44.9, adult Z68.41 [facility] [address] [address]- 2657 14 Mar, 2017 [place] [address] [place] [id number] [place] [address] 71992- 9876 Mar, [facility] [address] [place] [id number] [place] [address] 98418- 9972 Mar, Generalized anxiety disorder F41.1 and Major depressive disorder, recurrent episode with anxious distress F33.9 [place] [id number] [place] [address] 34378- 6416 Feb, Conjunctivitis, bacterial H10.9 [place] [address] [place] [id number] [place] [address] 50284- 0141 Feb, [facility] [address] [place] [id number] [place] [address] 08389 -7806 Feb, Conjunctivitis, bacterial H10.9 [place] [id number] [place] [address] 61170- 2691 Feb, [facility] [address] [address] -[address]64 Feb, Dysuria R30.0 ; Acute cystitis N30.00 and BMI 40.0-44.9, adult Z68.41 [place] [id number] [place] [address] 40853- 3239 Feb, [place] [address] [place] [id number] [place] [address] 08621- 1553 Feb, Generalized anxiety disorder F41.1 and Major depressive disorder, recurrent episode with anxious distress F33.9 [place] [id number] [place] [address] 92384- 7784 Feb, Mood disorder F39 and BMI 40.0-44.9, adult Z68.41 [facility] [address] [place] [id number] [place] [address] 44412- 4579 Jan, [facility] [address] [place] [id number] [place] [address] 90244- 0828 Jan, [facility] [address] [place] [id number] [place] [address] 18732- 1990 Jan, Hypothyroid E03.9 [facility] [address] [place] [id number] [place] [address] 60455- 6611 Jan, [place] [address] [place] [id number] [place] [address] 76282- 9753 Jan, Chronic kidney disease, unspecified N18.9 ; Hypokalemia E87.6 ; Essential (primary) hypertension I10 ; Fibromyalgia M79.7 ; Coronary artery disease involving [place] coronary artery of [place] heart, angina presence unspecified I25.10 ; Hypothyroid E03.9 and Encounter for immunization Z23 [facility] [address] [place] [id number] [place] [address] 77391- 7774 Jan, Hypothyroid E03.9 [place] [address] [place] [id number] [place] [address] 25333- 1433 Jan, [facility] [address] [place] [id number] [place] [address] 87385- 9958 Dec, Vitamin D deficiency E55.9 [facility] [address] [place] [id number] [place] [address] 32486- 5153 Dec, Primary osteoarthritis of left knee M17.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 [facility] [address] [place] [id number] [place] [address] 74746- 9060 Dec, Fibromyalgia M79.7 [facility] [address] [place] [id number] [place] [address] 47221- 8902 18 Dec, 2016 Mood disorder F39 [facility] [address] [place] [address]- 8350 13 Dec, 2016 [facility] [address] [facility] [id number] [address]- 1209 13 Dec, 2016 Generalized anxiety disorder F41.1 and Major depressive disorder, recurrent episode with anxious distress F33.9 [facility] [address] [address]- 9553 11 Dec, 2016 [facility] [address] [address]- 2813 08 Dec, 2016 Streptococcal meningitis G00.2 [facility] [id number] [place] [address] 55795- 6759 07 Dec, 2016 Streptococcal meningitis G00.2 [facility] [address] [address]- 2309 07 Dec, 2016 [facility] [id number] [place] [address] 86771- 4530 06 Dec, 2016 Streptococcal meningitis G00.2 [facility] [address] [address]- 6615 06 Dec, 2016 [facility] [id number] [place] [address] 06274- 4677 06 Dec, 2016 Major depressive disorder, recurrent episode with anxious distress F33.9 [facility] [address] [address]- 0442 Nov, Fever, unspecified fever cause R50.9 [facility] [address] [address]- 3585 24 Nov, 2016 [facility] [id number] [place] [address] 69712- 2536 16 Nov, 2016 Hypothyroid E03.9 [facility] [address] [place] [id number] [address]- 1409 10 Nov, 2016 Generalized anxiety disorder F41.1 and Major depressive disorder, recurrent episode with anxious distress F33.9 [facility] [address] [address]- 0932 Nov, [facility] [address] [id number] Oct, Dental examination Z01.20 [facility] [id number] [place] [address] 57167- 0255 Oct, Generalized anxiety disorder F41.1 and Major depressive disorder, recurrent episode with anxious distress F33.9 [facility] [id number] [place] [address] 50657- 5380 Oct, Chronic kidney disease, stage 4 (severe) N18.4 [facility] [address] [place] [id number] [place] [address] 20173- 2548 Oct, [place] [address] [place] [id number] [place] [address] 27665- 6790 Oct, Fibromyalgia M79.7 [facility] [id number] [place] [address] 06565- 5186 Oct, [facility] [address] [place] [id number] [place] [address] 68633- 9656 Oct, Generalized anxiety disorder F41.1 ; Major depressive disorder, recurrent episode with anxious distress F33.9 and Bipolar disorder, current episode manic without psychotic features F31.10 [place] [address] [address]- 6046 Sep, [facility] [id number] [place] [address] 84247- 2547 Sep, [facility] [id number] [place] [address] 95601- 2872 Sep, Vitamin D deficiency E55.9 [facility] [address] [address]- 2541 14 Sep, 2016 Vitamin D deficiency E55.9 [facility] [id number] [place] [address] 70400981- 8972 Sep, [place] [id number] [place] [address] 08973- 1645 Sep, Chronic kidney disease, stage 4 (severe) N18.4 ; Hypothyroid E03.9 ; Restless leg G25.81 ; Fibromyalgia M79.7 ; Essential ( primary) hypertension I10 ; Vitamin D deficiency E55.9 ; Dyspepsia R10.13 ; Anemia in chronic kidney disease D63.1 ; Chronic kidney disease, unspecified N18.9 ; Coronary artery disease involving [place] coronary artery of [place] heart , angina presence unspecified I25.10 ; Screening breast examination Z12.39 and Low back pain M54.5 [place] [address] 79837- 6477 August, Generalized anxiety disorder F41.1 and Major depressive disorder, recurrent episode with anxious distress F33.9 [place] [address] [place] [id number] [place] [address] 28295- 2220 August, Generalized anxiety disorder F41.1 and Major depressive disorder, recurrent episode with anxious distress F33.9 [place] [address] [place] [id number] [place] [address] 32602- 1156 August, Fibromyalgia M79.7 [place] [address] [place] [id number] [place] [address] 50561- 8948 Jul, Generalized anxiety disorder F41.1 and Major depressive disorder, recurrent episode with anxious distress F33.9 [place] [address] [place] [id number] [place] [address] 71552- 1693 Jul, Fibromyalgia M79.7 [place] [address] [place] [id number] [place] [address] 37075- 7408 Jul, Generalized anxiety disorder F41.1 [place] [address] [place] [id number] [place] [address] 78592- 4586 May, [place] [address] [place] [id number] [place] [address] 82996- 1772 May, Hypothyroid E03.9 [place] [address] [address]- 2668 08 May, 2016 Chronic kidney disease, stage 4 (severe) N18.4 ; Hypothyroid E03.9 ; Restless leg G25.81 ; Fibromyalgia M79.7 ; Essential ( primary) hypertension I10 ; Vitamin D deficiency E55.9 ; Dyspepsia R10.13 ; Acute non-recurrent maxillary sinusitis J01.00 ; Anemia in chronic kidney disease D63.1 ; Chronic kidney disease, unspecified N18.9 and Coronary artery disease involving [place] coronary artery of [place] heart, angina presence unspecified I25.10 [place] [address] [place] [id number] [place] [address] 77070- 5889 May, Vitamin D deficiency, unspecified E55.9 [place] [address] [place] [id number] [place] [address] 23842- 9217 May, Generalized anxiety disorder F41.1 and Major depressive disorder, recurrent episode with anxious distress F33.9 [place] [address] [place] [id number] [place] [address] 16729- 7816 Apr, Pain in right knee M25.561 and Pain in left knee M25.562 [place] [address] [place] [id number] [place] [address] 27416- 0952 Apr, [place] [address] [place] [id number] [place] [address] 15696- 4555 Apr, [place] [address] [place] [id number] [place] [address] 98497- 8416 Apr, [place] [address] [place] [id number] [place] [address] 98192- 9819 Mar, Generalized anxiety disorder F41.1 and Major depressive disorder, recurrent episode with anxious distress F33.9 [place] [address] [place] [id number] [place] [address] 85975- 1965 Mar, Generalized anxiety disorder F41.1 and Major depressive disorder, recurrent episode with anxious distress F33.9 [place] [address] [place] [address] [place] [address]- 0556 Mar, [facility] [address] [place] [id number] [place] [address] 31112- 4859 Mar, [facility] [address] [place] [id number] [place] [address] 62638- 0993 Mar, [facility] [address] 57066- 8216 Mar, Asthma J45.909 and Fibromyalgia M79.7 [facility] [address] 99293- 8015 Mar, Chronic kidney disease, stage 4 (severe) N18.4 ; Vitamin D deficiency E55.9 and Essential (primary) hypertension I10 [place] [address] [place] [id number] [place] [address] 88821- 0406 Feb, [facility] [address] 02828- 6455 Feb, Dysuria R30.0 ; Mixed stress and urge urinary incontinence N39.46 ; Fibromyalgia M79.7 and Chronic kidney disease, stage IV (severe) N18.4 [place] [address] [place] [id number] [place] [address] 87765- 9111 Feb, Chronic kidney disease, stage 4 (severe) N18.4 [place] [address] [place] [id number] [place] [address] 82876- 9481 Feb, Chronic kidney disease, stage 4 (severe) N18.4 [facility] [address] [place] [id number] [place] [address] 64050- 3866 Feb, [facility] [address] 23168- 9350 Feb, Vitamin D deficiency, unspecified E55.9 [facility] [address] [place] [id number] [place] [address] 24616- 9302 Jan, [facility] [address] [place] [address]- 7230 Jan, [facility] [address] [place] [id number] [place] [address] 00424- 5938 Dec, [facility] [address] [place] [id number] [place] [address] 88221- 5637 Dec, Chronic kidney disease, stage 4 (severe) N18.4 [facility] [address] [place] [id number] [place] [address] 47530- 0851 Dec, Dysthymic disorder F34.1 and Generalized anxiety disorder F41.1 [facility] [address] [place] [id number] [place] [address] 33852- 4516 Dec, [facility] [address] [place] [id number] [place] [address] 31157- 3497 Dec, [facility] [address] [place] [id number] [place] [address] 59098- 4803 Dec, Dysthymic disorder F34.1 and Generalized anxiety disorder F41.1 [facility] [address] [place] [id number] [place] [address] 82721- 3059 Dec, Dysuria R30.0 ; Chronic kidney disease, stage 4 (severe) N18.4 ; Hypertension I10 ; Dyspepsia R10.13 ; Yeast dermatitis B37.2 ; Palpitations R00.2 ; Hypothyroid E03.9 ; Functional diarrhea K59.1 and Other seasonal allergic rhinitis J30.2 [facility] [id number] [place] [address] 00606 -2435 Dec, [facility] [id number] [place] [address] 88241 -6295 Nov, Dysuria R30.0 and Stress incontinence N39.3 [facility] [id number] [place] [address] 98528- 4937 Nov, [facility] [address] [place] [id number] [place] [address] 73157- 1631 Nov, [place] [address] [place] [id number] [place] [address] 59750- 0881 Nov, Osteoarthritis of knees, bilateral M17.0 [place] [address] 26849- 0593 Nov, Dysthymic disorder F34.1 and Generalized anxiety disorder F41.1 [place] [address] 70280- 1745 Nov, [place] [address] 08745- 8202 Nov, [place] [address] 31581- 2300 Nov, Urgency of urination R39.15 [place] [address] 96496- 6826 Nov, [place] [address] 39900- 1388 Nov, Chronic kidney disease, stage 4 (severe) N18.4 [place] [address] 88011- 0395 Oct, Hypertension I10 ; Coronary artery disease involving [place] coronary artery of [place] heart, angina presence unspecified I25.10 ; Palpitations R00.2 ; Hypothyroid E03.9 ; Right foot pain M79.671 ; Functional diarrhea K59.1 and Other seasonal allergic rhinitis J30.2 [place] [address] [place] [id number] [place] [address] 60333- 8598 Oct, Dysthymic disorder F34.1 and Generalized anxiety disorder F41.1 [place] [address] 01961- 6500 Sep, [place] [address] [place] [id number] [place] [address] 65500- 7652 Sep, [place] [address] 73975- 3506 Sep, [place] [id number] [place] [address] 98750- 8605 Sep, [place] [address] [place] [id number] [place] [address] 60776- 4444 Sep, [place] [address] [place] [id number] [place] [address] 72256- 6834 Sep, Dysthymic disorder F34.1 and Generalized anxiety disorder F41.1 [place] [address] [place] [id number] [place] [address] 34977- 7032 16 Sep, 2015 Asthma with acute exacerbation in adult J45.901 ; Dysuria R30.0 ; Chronic kidney disease, stage 4 (severe) N18.4 and History of anemia Z86.2 [place] [id number] [place] [address] 22634- 2713 Sep, Generalized anxiety disorder F41.1 and Dysthymic disorder F34.1 [place] [address] [place] [id number] [place] [address] 99856- 0309 August, Screening breast examination Z12.39 and Acute recurrent maxillary sinusitis J01.01 [place] [id number] [place] [address] 74359- 3665 August, Osteoarthritis of knees, bilateral M17.0 [place] [id number] [place] [address] 19452- 7360 August, Chronic kidney disease, stage 4 (severe) N18.4 ; Acute non- recurrent maxillary sinusitis J01.00 ; Urinary problem R39.89 ; Bowel habit changes R19.4 ; Functional diarrhea K59.1 and History of colon polyps Z86.010 [place] [address] [place] [id number] [place] [address] 75477- 9381 Jul, Dysthymic disorder F34.1 and Generalized anxiety disorder F41.1 [place] [id number] [place] [address] 67087- 6749 Jul, [facility] [address] [address] 6359 Jul, Dysthymic disorder F34.1 ; Generalized anxiety disorder F41.1 and skilled nursing use of drug Z79.899 [facility] [address] [address] 5138 13 Jul, 2015 [facility] [id number] [place] [address] 07564- 1463 16 Jun, 2015 [facility] [id number] [place] [address] 48623- 2981 Jun, [place] [id number] [place] [address] 21353- 1402 May, [place] [id number] [place] [address] 88690- 0032 May, Dysthymic disorder F34.1 and Generalized anxiety disorder F41.1 [place] [id number] [place] [address] 47187- 0745 Apr, Kidney disease N28.9 [place] [id number] [place] [address] 65114- 1949 Apr, Dysthymic disorder F34.1 and Generalized anxiety disorder F41.1 [place] [address] [address]- 3581 Apr, Chronic kidney disease, stage 4 (severe) N18.4 [facility] [address] [address]- 6498 Apr, Generalized anxiety disorder F41.1 ; Major depression, recurrent F33.9 and Sleep disturbance G47.9 [place] [id number] [place] [address] 91839- 2879 Mar, Generalized anxiety disorder F41.1 and Dysthymic disorder F34.1 [place] [id number] [place] [address] 60320- 9653 Mar, Generalized anxiety disorder F41.1 ; Dysthymic disorder F34.1 and Insomnia G47.00 [facility] [id number] [place] [address] 06230- 0787 Mar, [facility] [id number] [place] [address] 37614- 1528 Mar, [facility] [address] 35594- 8259 Mar, Osteoarthritis of knees, bilateral M17.0 [facility] [id number] [place] [address] 30863- 5199 Mar, Hypertension I10 ; Hypothyroid E03.9 ; Dysthymic disorder F34.1 ; Chronic kidney disease, stage 4 (severe) N18.4 and Nausea & vomiting R11.2 [facility] [id number] [place] [address] 45458- 5997 Mar, Generalized anxiety disorder F41.1 ; Dysthymic disorder F34.1 and Insomnia G47.00 [facility] [address] [id number] [place] [address] 01967- 0646 Mar, Dehydration E86.0 ; Chronic kidney disease, stage 4 (severe ) N18.4 and Nausea & vomiting R11.2 [facility] [id number] [place] [address] 70389 -7760 Mar, Gastroenteritis K52.9 [facility] [id number] [place] [address] 57502- 9069 Mar, [facility] [id number] [place] [address] 21871- 6721 Mar, [facility] [id number] [place] [address] 32542- 3816 Feb, Dysthymic disorder F34.1 and Generalized anxiety disorder F41.1 [facility] [id number] [place] [address] 31206- 7449 Jan, UTI (urinary tract infection) N39.0 ; Asthma J45.909 ; Coronary artery disease involving [place] coronary artery of [place] heart, angina presence unspecified I25.10 ; Hypertension I10 ; Hypothyroid E03.9 ; Vitamin D deficiency E55.9 ; Insomnia G47.00 ; Palpitations R00.2 ; Depressed F32.9 ; Restless leg G25.81 and Anxiety F41.[address] 45771- 7549 Jan, Dysthymic disorder F34.1 and Generalized anxiety disorder F41.[address] 64475- 8767 Jan, [address] 18611- 0697 Dec, [place] [address] 25199- 0835 Dec, Alkalosis 276.3 ; Chronic kidney disease, Stage IV (severe) 585.4 ; Hyperpotassemia 276.7 ; Secondary hyperparathyroidism, renal 588.81 ; Proteinuria 791.0 ; Unspecified vitamin D deficiency 268.9 ; Anemia in chronic kidney disease 285.21 ; Other and unspecified hyperlipidemia 272.4 ; Hypertension, essential, benign 401.1 and Chronic kidney disease (CKD), stage III (moderate) 585.3 [place] [id number] [place] [address] 56771- 1301 Dec, [place] [id number] [place] [address] 50386- 7622 Dec, Depressive disorder, not elsewhere classified 311 and Generalized anxiety disorder 300.02 [place] [id number] [place] [address] 75658- 5447 Dec, [place] [address] [address] [id number] [place] [address] 02493- 4878 Dec, [place] [address] [address] [id number] [place] [address] 04361- 7649 Nov, Depressive disorder, not elsewhere classified 311 and Generalized anxiety disorder 300.02 [place] [address] [address] [id number] [place] [address] 40049- 3846 Nov, Arthritis of both knees 716.96 [place] [address] [address] [id number] [place] [address] 21576- 6353 Nov, PAF (paroxysmal atrial fibrillation) 427.31 ; CAD (coronary artery disease) 414.00 ; Chest pain 786.50 and Chronic kidney disease (CKD) stage G4/A1, severely decreased glomerular filtration rate (GFR) between 15-29 mL/min/1.73 square meter and albuminuria creatinine ratio less than 30 mg/g 585.[address] 42396- 5521 Oct, Coronary atherosclerosis of unspecified type of vessel, [place] or graft 414.00 ; Chronic kidney disease, Stage IV (severe) 585.4 ; Hypertension 401.9 and Edema 782.3 [place] [id number] [place] [address] 43776- 2268 Oct, Depressive disorder, not elsewhere classified 311 and Generalized anxiety disorder 300.02 [place] [address] [address] [id number] [place] [address] 70942- 7327 Oct, Depressive disorder, not elsewhere classified 311 and Generalized anxiety disorder 300.02 [place] [address] [address] [id number] [place] [address] 61084- 3318 Oct, [place] [address] [address] [id number] [place] [address] 20983- 4716 Oct, [place] [address] [id number] [place] [address] 64689- 5556 Sep, [place] [id number] [place] [address] 19821- 1838 Sep, Chronic kidney disease, Stage IV (severe) 585.4 [place] [address] [address] [id number] [place] [address] 29748- 5989 Sep, [id number] [place] [address] 46290- 6498 Sep, Coronary atherosclerosis of unspecified type of vessel, [place] or graft 414.00 ; Hypertension 401.9 ; Edema 782.3 and Hypothyroidism 244.9 [facility] [id number] [place] [address] 17058- 6863 Sep, Coronary atherosclerosis of unspecified type of vessel, [place] or graft 414.00 ; Hypertension 401.9 ; Fibromyalgia 729.1 ; Edema 782.3 ; Hypothyroidism 244.9 and Anemia 285.9 [facility] [address] [address] [id number] [place] [address] 49892- 2619 Sep, Anxiety disorder, unspecified 300.00 and Depressive disorder , not elsewhere classified 311 [facility] [address] [id number] [place] [address] 48797- 5826 Sep, [facility] [address] 95335- 2441 August, Generalized anxiety disorder 300.02 [facility] [address] [id number] [place] [address] 20740- 0878 August, Closed fracture of lateral malleolus 824.2 [facility] [address] [address] [id number] [place] [address] 71103- 4575 Jul, [facility] [id number] [place] [address] 87297- 9959 Jul, [facility] [id number] [place] [address] 78438- 7324 Jun, [facility] [id number] [place] [address] 36414- 9574 Jun, [facility] [address] [id number] [place] [address] 18468- 4612 Jun, [facility] [id number] [place] [address] 38424- 4315 Jun, [facility] [id number] [place] [address] 53452- 9336 Jun, [facility] [place] [facility] [address] [id number] [place] [address]- 8749 Jun, [facility] [place] [facility] [address] [id number] [place] [address]- 8856 May, 2014 [facility] [place] [facility] [address] [facility] [id number] [place] [address]- 9406 May, 2014 [facility] [place] [facility] [address] [id number] [place] [address]- 1369 May, 2014 [facility] [place] [facility] [address] [id number] [place] [address]- 6167 May, 2014 [facility] [place] [facility] [address] [facility] [id number] [place] [address]- 5575 16 May, 2014 [facility] [place] [facility] [address] [facility] [id number] [place] [address]- 6931 16 May, 2014 [facility] [place] [facility] [address] [facility] [id number] [place] [address]- 0750 13 May, 2014 [facility] [place] [facility] [address] [id number] [place] [address]- 2581 13 May, 2014 [facility] [place] [facility] [address] [facility] [id number] [place] [address]- 9382 10 May, 2014 [facility] [place] [facility] [address] [facility] [id number] [place] [address]- 9847 10 May, 2014 [facility] [place] [facility] [address] [facility] [id number] [place] [address]- 0580 Apr, [facility] [place] [facility] [address] [id number] [place] [address]- 6388 Apr, [facility] [place] [facility] [address] [facility] [id number] [place] [address]- 6939 Mar, [facility] [place] [facility] [address] [facility] [id number] [place] [address]- 0602 Mar, [facility] [place] [facility] [address] [id number] [place] [address]- 0452 Mar, [facility] [place] [facility] [address] [id number] [place] [address]- 4420 Mar, [facility] [place] [facility] [address] [id number] [place] [address]- 0817 Mar, [facility] [place] [facility] [address] [id number] [place] [address]- 2576 Mar, [facility] [place] [facility] [address] [id number] [place] [address]- 8570 Mar, [facility] [place] [facility] [address] [id number] [place] [address]- 8008 Feb, [facility] [place] [facility] [address] [id number] [place] [address]- 6527 Feb, [facility] [place] [facility] [address] [id number] [place] [address]- 4641 Feb, [facility] [place] [facility] [address] [id number] [place] [address]- 1487 Jan, [facility] [place] [facility] [address] [id number] [place] [address]- 4849 Jan, [facility] [place] [facility] [address] [id number] [place] [address]- 3380 Jan, [facility] [place] [facility] [address] [id number] [address]- 6278 Jan, [facility] [place] [facility] [address] [id number] [place] [address]- 5782 Jan, [facility] [place] [facility] [address] [id number] [place] [address]- 5512 Jan, [facility] [place] [facility] [address] [id number] [place] [address]- 9192 Jan, [facility] [place] [facility] [address] [id number] [place] [address]- 6562 Jan, [facility] [place] [facility] [address] [id number] [place] [address]- 1405 Jan, [facility] [place] [facility] [address] [id number] [place] [address]- 2338 Jan, [facility] [place] [facility] [address] [id number] [place] [address]- 5117 Nov, [facility] [place] [facility] [address] [id number] [place] [address]- 1508 Nov, [facility] [place] [facility] [address] [id number] [place] [address]- 5153 Nov, [facility] [place] [facility] [address] [id number] [place] [address]- 4115 Oct, [facility] [place] [facility] [address] [id number] [place] [address]- 7541 Oct, [facility] [place] [facility] [address] [id number] [place] [address]- 0224 Oct, [facility] [place] [facility] [address] [id number] [place] [address]- 6058 Oct, [facility] [place] [facility] [address] [id number] [place] [address]- 8104 Oct, [facility] [place] [facility] [address] [id number] [place] [address]- 0810 Oct, [facility] [place] [facility] [address] [id number] [place] [address]- 6340 Oct, [facility] [place] [facility] [address] [id number] [place] [address]- 1014 Oct, [facility] [place] [facility] [address] [id number] [place] [address]- 1017 Oct, [facility] [place] [facility] [address] [id number] [place] [address]- 3122 Sep, [facility] [place] [facility] [address] [id number] [place] [address]- 9793 Sep, [facility] [place] [facility] [address] [id number] [place] [address]- 7628 Sep, [facility] [place] [facility] [address] [id number] [place] [address]- 0125 Sep, [facility] [place] [facility] [address] [id number] [place] [address]- 9909 Sep, [facility] [place] [facility] [address] [id number] [place] [address]- 8003 Sep, [facility] [place] [facility] [address] [id number] [place] [address]- 3940 Sep, [facility] [place] [facility] [address] [id number] [place] [address]- 1203 Sep, [facility] [place] [facility] [address] [id number] [place] [address]- 2718 Sep, [facility] [place] [facility] [address] [id number] [place] [address]- 4973 August, [facility] [place] [facility] [address] [id number] [place] [address]- 8219 August, [facility] [place] [facility] [address] [id number] [place] [address]- 3821 August, [facility] [place] [facility] [address] [id number] [place] [address]- 3270 August, [facility] [place] [facility] [address] [id number] [place] [address]- 6586 August, [facility] [place] [facility] [address] [id number] [place] [address]- 0434 August, [facility] [place] [facility] [address] [id number] [place] [address]- 5805 Jul, [facility] [place] [facility] [address] [id number] [place] [address]- 3851 Jul, [facility] [place] [facility] [address] [id number] [place] [address]- 1745 Jul, [facility] [place] [facility] [address] [id number] [place] [address]- 7012 Jul, [facility] [place] [facility] [address] [id number] [place] [address]- 8267 Jul, [facility] [place] [facility] [address] [id number] [place] [address]- 5213 Jul, [facility] [place] [facility] [address] [id number] [place] [address]- 9081 Jun, [facility] [place] [facility] [address] [id number] [place] [address]- 1028 Jun, [facility] [place] [facility] [address] [id number] [place] [address]- 5660 May, [facility] [place] [facility] [address] [id number] [place] [address]- 3987 May, [facility] [place] [facility] [address] [id number] [place] [address]- 4238 May, [facility] [place] [facility] [address] [id number] [place] [address]- 9692 May, [facility] [place] [facility] [address] [id number] [place] [address]- 1095 Apr, [facility] [place] [facility] [address] [id number] [place] [address]- 0380 Apr, [facility] [place] [facility] [address] [id number] [place] [address]- 2803 Mar, [facility] [place] [facility] [address] [id number] [place] [address]- 7800 Mar, [facility] [place] [facility] [address] [id number] [place] [address]- 4481 17 Mar, 2013 [facility] [place] [facility] [address] [id number] [place] [address]- 0550 17 Mar, 2013 [facility] [place] [facility] [address] [id number] [place] [address]- 8783 05 Mar, 2013 [facility] [place] [facility] [address] [id number] [place] [address]- 6689 Mar, [facility] [place] [facility] [address] [id number] [place] [address]- 9315 Feb, [facility] [place] [facility] [address] [id number] [place] [address]- 6364 Feb, [facility] [place] [facility] [address] [id number] [place] [address]- 8372 Feb, [facility] [place] [facility] [address] [id number] [place] [address]- 3873 Feb, [facility] [place] [facility] [address] [id number] [place] [address]- 3191 Feb, [facility] [place] [facility] [address] [id number] [place] [address]- 4221 Feb, [facility] [place] [facility] [address] [id number] [place] [address]- 6118 Jan, [facility] [place] [facility] [address] [id number] [place] [address]- 1900 24 Jan, 2013 [facility] [place] [facility] [address] [id number] [place] [address]- 4490 Jan, [facility] [place] [facility] [address] [id number] [place] [address]- 4599 Jan, [facility] [place] [facility] [address] [id number] [place] [address]- 5546 08 Jan, 2013 [facility] [place] [facility] [address] [id number] [place] [address]- 2546 Jan, [facility] [place] [facility] [address] [id number] [place] [address]- 2397 Dec, [facility] [address] [id number] [place] [address]- 6175 Dec, [facility] [place] [facility] [address] [id number] [place] [address]- 4970 Nov, [facility] [place] [facility] [address] [id number] [place] [address]- 1904 Nov, [facility] [place] [facility] [address] [id number] [place] [address]- 8555 Oct, [facility] [place] [facility] [address] [id number] [place] [address]- 6469 Oct, [facility] [place] [facility] [address] [id number] [place] [address]- 6977 Oct, [facility] [place] [facility] [address] [id number] [place] [address]- 6561 Oct, [facility] [place] [facility] [address] [id number] [place] [address]- 7080 Oct, [facility] [place] [facility] [address] [id number] [place] [address]- 9536 Oct, [facility] [place] [facility] [address] [id number] [place] [address]- 9333 Sep, [facility] [place] [facility] [address] [id number] [place] [address]- 2553 Sep, [facility] [place] [facility] [address] [id number] [place] [address]- 7277 Sep, [facility] [place] [facility] [address] [id number] [place] [address]- 8901 Sep, [facility] [place] [facility] [address] [id number] [place] [address]- 7240 August, [facility] [place] [facility] [address] [id number] [place] [address]- 5845 August, [facility] [place] [facility] [address] [id number] [place] [address]- 3536 August, [facility] [address] [id number] [place] 1258 August, [facility] [address] [id number] [place] 4002 August, [facility] [address] [id number] [place] [address]- 3277 Jul, [facility] [address] [id number] [place] [address]- 0385 Jul, [facility] [address] [id number] [place] [address]- 4411 Jul, [facility] [address] [id number] [place] [address]- 5043 Jul, [facility] [address] [id number] [place] [address]- 0015 Jul, [facility] [address] [id number] [place] [address]- 7832 Jul, [facility] [address] [id number] [place] [address] Jul, [facility] [address] [id number] [place] [address] Jul, [facility] [address] [id number] [place] [address] Jul, [facility] [address] [id number] [place] [address] Jul, [facility] [address] [id number] [id number] Jun, [facility] [address] [id number] [place] [address] Jun, [facility] [address] [id number] [place] [address] Jun, [facility] [place] [facility] [address] [id number] [place] [address] Jun, [facility] [address] [id number] [place] [address] Jun, [facility] [address] [id number] [place] [address] May, [facility] [address] [id number] [place] [address] 18 May, 2012 [facility] [address] [id number] [place] [address] May, [facility] [address] [id number] [place] [address] Apr, [facility] [address] [id number] [place] [address] Apr, [facility] [address] [id number] [place] [address] Apr, [facility] [address] [id number] [place] [address] Apr, [facility] [address] [id number] [place] [address] Apr, [facility] [address] [id number] [place] [address] Apr, [facility] [address] [id number] [place] [address] Mar, [facility] [address] [id number] [place] [address] Mar, [facility] [place] [facility] [address] [id number] [place] [address] Mar, [facility] [place] [facility] [address] [id number] [place] [address] Mar, [facility] [address] [id number] [place] [address] Feb, [facility] [place] [facility] [address] [id number] [place] [address] Feb, [facility] [place] [facility] [address] [id number] [place] [address] Feb, [facility] [place] [facility] [address] [facility] [id number] [place] [address] Feb, [facility] [place] [facility] [address] [id number] [place] [address] Feb, [facility] [place] [facility] [address] [id number] [place] [address] Feb, [facility] [place] [facility] [address] [id number] [place] [address] Feb, [facility] [place] [facility] [address] [facility] [id number] [place] [address] Feb, [facility] [place] [facility] [address] [id number] [place] [address] Feb, [facility] [place] [facility] [address] [id number] [place] [address] Feb, [facility] [place] [facility] [address] [facility] [id number] [place] [address] Feb, [facility] [place] [facility] [address] [id number] [place] [address] Feb, [facility] [place] [facility] [address] [id number] [place] [address] Feb, [facility] [place] [facility] [address] [id number] [place] [address] Feb, [facility] [place] [facility] [address] [id number] [place] [address] Feb, [facility] [place] [facility] [address] [facility] [id number] [place] [address] Feb, [facility] [place] [facility] [address] [id number] [place] [address] 31 Jan, 2011 [facility] [place] [facility] [address] [id number] [place] [address] 31 Jan, 2011 [facility] [place] [facility] [address] [id number] [place] [address] 31 Jan, 2011 [facility] [place] [facility] [address] [id number] [place] [address] 31 Jan, 2011 [facility] [place] [facility] [address] [id number] [place] [address] 30 Jan, 2011 [facility] [place] [facility] [address] [id number] [place] [address] Jan, 2011 [facility] [place] [facility] [address] [id number] [place] [address] 25 Jan, 2011 [facility] [place] [facility] [address] [facility] [id number] [place] [address] 16 Jan, 2012 [facility] [place] [facility] [address] [id number] [place] [address] 16 Jan, 2012 [facility] [place] [facility] [address] [id number] [place] [address] 15 Jan, 2012 [facility] [place] [facility] [address] [facility] [id number] [place] [address] 15 Jan, 2012 [facility] [place] [facility] [address] [id number] [place] [address] Jan, [facility] [place] [facility] [address] [id number] [address] 26 Dec, 2011 [facility] [place] [facility] [address] [id number] [place] [address] 26 Sep, 2011 [facility] [place] [facility] [address] [facility] [id number] [place] [address] 1268 24 Sep, 2011 [facility] [place] [facility] [address] [id number] [place] [address] 3613 23 Sep, 2011 [facility] [place] [facility] [address] [id number] [place] [address] 2632 22 Dec, 2011 [facility] [place] [facility] [address] [id number] [place] [address] 2368 21 Dec, 2011 [facility] [place] [facility] [address] [id number] [place] [address] 6395 20 Dec, 2011 [facility] [place] [facility] [address] [id number] [place] [address] 2956 20 Dec, 2011 [facility] [place] [facility] [address] [id number] [place] [address] 07 Sep, 2011 [facility] [place] [facility] [address] [id number] [place] [address] 4839 06 Dec, 2011 [facility] [place] [facility] [address] [id number] [place] [address] 6410 06 Dec, 2011 [facility] [place] [facility] [address] [id number] [place] [address] 0743 05 Dec, 2011 [facility] [place] [facility] [address] [id number] [place] [address] 8871 23 Nov, 2011 [facility] [place] [facility] [address] [id number] [place] [address] 7013 17 Nov, 2011 [facility] [place] [facility] [address] [id number] [place] [address] 8713 13 Nov, 2011 [facility] [place] [facility] [address] [id number] [place] [address] 6955 Nov, [facility] [place] [facility] [address] [id number] [place] [address] 7022 08 Nov, 2011 [facility] [place] [facility] [address] [id number] [place] [address] 5263 Nov, [facility] [place] [facility] [address] [id number] [place] [address] 6961 Nov, [facility] [place] [facility] [address] [id number] [place] [address] 2546 Nov, [facility] [place] [facility] [address] [id number] [place] [address] 8645 Oct, [facility] [place] [facility] [address] [id number] [place] [address]286 Oct, [facility] [place] [facility] [address] [id number] [place] [address] 2556 Oct, [facility] [place] [facility] [address] [id number] [place] [address] 5171 Oct, [facility] [place] [facility] [address] [id number] [place] [address] 9710 Oct, [facility] [place] [facility] [address] [id number] [place] [address] 3156 Oct, [facility] [place] [facility] [address] [id number] [place] [address] 9131 Oct, [facility] [place] [facility] [address] [id number] [place] [address] 8357 Sep, [facility] [place] [facility] [address] [id number] [place] [address] 3298 Sep, [facility] [place] [facility] [address] [id number] [place] [address] 9388 August, [facility] [place] [facility] [address] [id number] [place] [address] 0543 August, [facility] [place] [facility] [address] [id number] [place] [address] 4148 August, [facility] [place] [facility] [address] [id number] [place] [address] 5236 August, [facility] [place] [facility] [address] [id number] [place] [address] 4986 Jul, [facility] [place] [facility] [address] [id number] [place] [address] 1786 Jul, [facility] [place] [facility] [address] [id number] [place] [address] 4676 06 Jul, 2011 [facility] [address] [id number] [place] [address] 4878 Jul, [facility] [address] [id number] [place] [address] 3376 Jul, [facility] [address] [id number] [place] [address] 9976 Jul, [facility] [address] [id number] [place] [address] 7363 Jul, [facility] [address] [id number] [place] [address] 9527 Jul, [facility] [address] [id number] [place] [address] 5400 Jul, [facility] [address] [id number] [place] [address] 0179 Jun, [facility] [address] [id number] [place] [address] 1374 Jun, [facility] [address] [id number] [place] [address]- 5268 15 Jun, 2011 [facility] [address] [id number] [place] [address]- 1524 14 Jun, 2011 [facility] [address] [id number] [place] [address] 9625 Jun, [facility] [address] [id number] [place] [address] 1815 Jun, [facility] [place] [facility] [address] [id number] [place] [address] 5502 Jun, [facility] [address] [id number] [place] [address] 0776 May, [facility] [address] [id number] [place] [address] 0894 May, [facility] [address] [id number] [place] [address] 5218 May, [facility] [place] [facility] [address] [id number] [place] [address] 1786 May, [facility] [place] [facility] [address] [id number] [place] [address] 7576 May, [facility] [place] [facility] [address] [id number] [place] [address] 6546 Apr, [facility] [place] [facility] [address] [id number] [place] [address] 2736 Apr, [facility] [place] [facility] [address] [id number] [place] [address]- 2216 Apr, [facility] [place] [facility] [address] [id number] [place] [address]- 6382 Apr, [facility] [place] [facility] [address] [id number] [place] [address]- 8670 Apr, [facility] [place] [facility] [address] [id number] [place] [address] 8277 Mar, [facility] [place] [facility] [address] [id number] [place] [address] 1972 Mar, [facility] [place] [facility] [address] [id number] [place] [address]- 2029 Mar, [facility] [place] [facility] [address] [id number] [place] [address]- 2405 Mar, [facility] [place] [facility] [address] [id number] [place] [address]- 9096 Mar, [facility] [place] [facility] [address] [id number] [place] [address]- 7376 Mar, [facility] [place] [facility] [address] [id number] [place] [address]- 8886 Mar, [facility] [place] [facility] [address] [id number] [place] [address]- 8668 11 Feb, 2011 [facility] [place] [facility] [address] [id number] [place] [address] Feb, [facility] [place] [facility] [address] [id number] [place] [address]- 5826 Feb, [facility] [place] [facility] [address] [id number] [place] [address]- 3086 Feb, [facility] [place] [facility] [address] [id number] [place] [address]- 6059 Jan, [facility] [place] [facility] [address] [id number] [place] [address]- 7646 Jan, [facility] [place] [facility] [address] [id number] [place] [address]- 2930 Jan, [facility] [place] [facility] [address] [id number] [place] [address]- 7584 Jan, [facility] [place] [facility] [address] [id number] [place] [address]- 5977 Nov, [facility] [place] [facility] [address] [id number] [place] [address]- 0439 Mar, [facility] [place] [facility] [address] [id number] [place] [address]- 8814 Mar, [facility] [place] [facility] [address] [id number] [place] [address] 2546 Mar, [facility] [place] [facility] [address] [id number] [place] [address]- 254 Mar, [facility] [place] [facility] [address] [id number] [place] [address]- 6808 Mar, [facility] [place] [facility] [address] [id number] [place] [address]- 9434 Mar, [facility] [place] [facility] [address] [id number] [place] [address]- 4441 Feb, [facility] [address] [facility] [id number] [place] [id number] Feb, [facility] [address] [facility] [id number] [address] Jan, [facility] [address] [facility] [id number] [place] [address]- 4700 Jan, [facility] [address] [facility] [id number] [place] [address] 2937 Jan, IMMUNIZATIONS No Known Immunizations SOCIAL HISTORY Never Assessed REASON FOR VISIT Lab (walk-in) PLAN OF CARE VITAL SIGNS MEDICATIONS Unknown Medications RESULTS No Results PROCEDURES Procedure Date Ordered Result Body Site LAB NOT BILLED BY [facility] July 05, 2017 INSTRUCTIONS MEDICATIONS ADMINISTERED No Known [...] History Bladder surgery [facility] 03/2016 Hospitalization History Surgeries Only Hospitalization History 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
--- OUTSIDE RECORDS SUMMARY | 2018-05-29 09:03 | XMS REPORT ---
Author Author ISABEL MAE [facility] Address [address] [place] [address] Care Team Providers [employer] Architect Name Role Phone ISABEL MAE Unavailable PROBLEMS Type Condition ICD9-CM Code MYO10-IO Code Onset Dates Condition Status SNOMED Code Problem Long-term use of high-risk medication Z79.899 Active 227831955 Problem Abnormal chest CT R93.8 Active 808482356 Problem Generalized anxiety disorder F41.1 Active 28912690 Problem Low back pain M54.5 Active 444043803 Problem Dysthymic disorder F34.1 Active 58677969 Problem Depressed F32.9 Active 25166687 Problem Coronary artery disease involving enterprise coronary artery of enterprise heart, angina presence unspecified I25.10 Active 7828962768617 Problem Hypothyroid E03.9 Active 26682665 Problem Insomnia G47.00 Active 006486737 Problem Vitamin D deficiency E55.9 Active 94733356 Problem Asthma J45.909 Active 108042613 Problem Chronic kidney disease, unspecified N18.9 Active 041505603 Problem Palpitations R00.2 Active 17561549 Problem Anemia in chronic kidney disease D63.1 Active 989988208982661 Problem Primary osteoarthritis of left knee M17.12 Active 164489240 Problem Bipolar disorder, current episode manic without psychotic features F31.10 Active 418307456 Problem Restless leg syndrome G25.81 Active 84378378 Problem Seasonal allergic rhinitis due to pollen J30.1 Active 89042241 Problem Functional diarrhea K59.1 Active 30598931 Problem Chronic kidney disease, stage 4 (severe) N18.4 Active 360905142 Problem Restless leg G25.81 Active 75563286 Problem Mood disorder F39 Active 42181700 Problem Degenerative tear of medial meniscus of left knee M23.204 Active 359278152 Problem Body mass index (BMI) of 40.0-44.9 in adult Z68.41 Active 844306106 Problem Stage 3 chronic kidney disease N18.3 Active 489589218 Problem Asthma with acute exacerbation in adult J45.901 Active 845639546 Problem Other seasonal allergic rhinitis J30.2 Active 423216081 Problem History of colon polyps Z86.010 Active 351003454 Problem History of anemia Z86.2 Active 583659102 Problem Fibromyalgia M79.7 Active 680901167 Problem Essential (primary) hypertension I10 Active 33625118 Problem Hypokalemia E87.6 Active 73953838 Problem Mixed stress and urge urinary incontinence N39.46 Active 385402667 ALLERGIES No Information ENCOUNTERS Encounter Location Date Diagnosis [place] [id number] [address]- 8362 Oct, [place] [address] 96905- 0968 Oct, Fibromyalgia M79.7 [place] [address] 09103- 6282 Sep, Restless leg syndrome G25.81 and Restless leg G25.81 [place] [address] [place] [id number] [place] [address] 82927- 9850 Sep, [place] [address] 84422- 7868 Sep, Seasonal allergic rhinitis due to pollen J30.1 ; Screening for breast cancer Z12.31 ; Chest pain at rest R07.9 ; Restless leg syndrome G25.81 ; Essential (primary) hypertension I10 and Depressed F32.9 [place] [address] [place] [id number] [place] [address] 44553- 5835 August, Fibromyalgia M79.7 [place] [address] 10439- 8075 August, [place] [address] 23878- 3761 August, [place] [address] 70097- [address] August, Abnormal chest [address] R93.8 [facility] [address] [place] [address] 14114- 0399 August, Generalized anxiety disorder F41.1 and Major depressive disorder, recurrent episode with anxious distress F33.9 [facility] [address] [place] [id number] [place] [address] 03292- [address] August, [address] R93.8 [facility] [address] [place] [id number] [place] [address] 14348- 2188 Jul, [place] [address] [place] [id number] [place] [address] 86668- 5632 Jul, Chronic kidney disease, stage 4 (severe) N18.4 [place] [address] [place] [id number] [place] [address] 05970- 4938 Jul, [place] [address] [place] [id number] [place] [address] 74134- 3117 Jul, Restless leg G25.81 ; Mixed stress and urge urinary incontinence N39.46 and Fibromyalgia M79.7 [place] [address] [place] [id number] [place] [address] 52751- 6216 Jul, Chronic kidney disease, stage 4 (severe) N18.4 [place] [address] [place] [id number] [place] [address] 06831- 8761 Jun, Orthostatic hypotension I95.1 ; Chronic kidney disease, stage 4 (severe) N18.4 ; Chest wall discomfort R07.89 and Body mass index (BMI) of 40.0-44.9 in adult Z68.41 [place] [address] [place] [id number] [address] 3061 Jun, [place] [address] [place] [id number] [place] [address] 68362- 7766 Jun, Orthostatic hypotension I95.1 [place] [address] [place] [id number] [place] [address] 68898- 3880 Jun, [facility] [address] [place] [id number] [place] [address] 32327 -8709 Jun, Orthostatic hypotension I95.1 ; Dysuria R30.0 and Acute cystitis without hematuria N30.00 [facility] [address] [place] [id number] [place] [address] 68712- 2127 Jun, [facility] [address] [place] [id number] [place] [address] 23660- 2826 Jun, Chronic kidney disease, stage 4 (severe) N18.4 [facility] [address] [place] [id number] [place] [address] 31470- 0691 Jun, Fibromyalgia M79.7 [facility] [address] [place] [id number] [place] [address] 13005- 1383 Jun, [facility] [address] [place] [id number] [place] [address] 81746- 4761 Jun, [facility] [address] [place] [id number] [place] [address] 36512- [address] May, [address] R93.8 and Stage 3 chronic kidney disease N18.3 [facility] [address] [place] [id number] [place] [address] 42325- 5886 May, Chronic kidney disease, stage 4 (severe) N18.4 [facility] [address] [place] [id number] [place] [address] 25874- 2131 May, Chronic kidney disease, stage 4 (severe) N18.4 [facility] [address] [place] [id number] [place] [address] 81575- [address] May, [address] R93.8 [facility] [address] [place] [id number] [place] [address] 82898- 2689 May, [facility] [address] [place] [id number] [place] [address] 58312- 6428 May, [facility] [address] [place] [id number] [place] [address] 80187- 3773 May, Generalized anxiety disorder F41.1 and Major depressive disorder, recurrent episode with anxious distress F33.9 [place] [address] [place] [address] 39352- 4139 May, Mood disorder F39 [facility] [address] [place] [address] 61575- 8023 Apr, [facility] [address] [place] [id number] [place] [address] 81897- 3107 Apr, Infected skin lesion L08.9 and Muscle strain of right shoulder region, initial encounter S46.911A [place] [address] [place] [id number] [place] [address] 24101- 5001 Apr, Generalized anxiety disorder F41.1 and Major depressive disorder, recurrent episode with anxious distress F33.9 [place] [address] [place] [id number] [place] [address] 63962- 2606 Apr, [facility] [address] [place] [id number] [place] [address] 02999- 0551 Apr, Recent urinary tract infection Z87.440 and Hypothyroid E03.9 [place] [address] [place] [id number] [place] [address] 52679- 6743 Apr, Generalized anxiety disorder F41.1 and Major depressive disorder, recurrent episode with anxious distress F33.9 [place] [address] [place] [id number] [place] [address] 78027- 8394 Apr, Recent urinary tract infection Z87.440 [place] [address] [place] [address] 79846- 8444 Mar, [facility] [address] [place] [id number] [place] [address] 83557 -8629 Mar, Dysuria R30.0 ; Acute cystitis without hematuria N30.00 and BMI 40.0-44.9, adult Z68.41 [place] [address] [place] [id number] [place] [address] 39623- 0114 14 Mar, 2017 [facility] [address] [place] [address] 53604- 4869 Mar, [facility] [address] [place] [id number] [place] [address] 07500- 1013 Mar, Generalized anxiety disorder F41.1 and Major depressive disorder, recurrent episode with anxious distress F33.9 [facility] [address] [place] [id number] [place] [address] 08030- 6335 Feb, Conjunctivitis, bacterial H10.9 [place] [address] [place] [id number] [place] [address] 20675- 7756 Feb, [facility] [address] [place] [id number] [place] [address] 20383 -4968 Feb, Conjunctivitis, bacterial H10.9 [place] [address] [place] [id number] [place] [address] 30897- 6330 Feb, [facility] [address] [place] [id number] [place] [address] 57355 -7498 Feb, Dysuria R30.0 ; Acute cystitis N30.00 and BMI 40.0-44.9, adult Z68.41 [place] [address] [place] [id number] [place] [address] 97996- 3091 Feb, [place] [address] [place] [id number] [place] [address] 24602- 5809 Feb, Generalized anxiety disorder F41.1 and Major depressive disorder, recurrent episode with anxious distress F33.9 [place] [address] [place] [id number] [place] [address] 63961- 9492 Feb, Mood disorder F39 and BMI 40.0-44.9, adult Z68.41 [facility] [address] [place] [address] 33748- 7593 Jan, [facility] [address] [place] [id number] [place] [address] 67829- 1631 Jan, [place] [address] [place] [address] 92010- 6618 Jan, Hypothyroid E03.9 [place] [address] [place] [id number] [place] [address] 34227- 3913 Jan, [place] [address] [place] [id number] [place] [address] 54597- 2920 Jan, Chronic kidney disease, unspecified N18.9 ; Hypokalemia E87.6 ; Essential (primary) hypertension I10 ; Fibromyalgia M79.7 ; Coronary artery disease involving enterprise coronary artery of enterprise heart, angina presence unspecified I25.10 ; Hypothyroid E03.9 and Encounter for immunization Z23 [place] [address] [place] [id number] [place] [address] 27635- 6063 Jan, Hypothyroid E03.9 [place] [address] [place] [id number] [place] [address] 88540- 6285 Jan, [place] [address] [place] [id number] [place] [address] 43777- 1322 Dec, Vitamin D deficiency E55.9 [place] [address] [place] [id number] [place] [address] 33909- 7892 Dec, Primary osteoarthritis of left knee M17.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 [place] [address] [place] [id number] [place] [address] 03789- 0218 19 Dec, 2016 Fibromyalgia M79.7 [place] [address] [place] [id number] [place] [address] 94629- 7557 18 Dec, 2016 Mood disorder F39 [place] [address] [place] [id number] [place] [address] 06984- 7541 13 Dec, 2016 [place] [address] [place] [id number] [place] [address] 24174- 5360 13 Dec, 2016 Generalized anxiety disorder F41.1 and Major depressive disorder, recurrent episode with anxious distress F33.9 [place] [address] [place] [address]- 4444 11 Dec, 2016 [facility] [address] [place] [address] 13851- 1436 08 Dec, 2016 Streptococcal meningitis G00.2 [facility] [address] [place] [address] 23114- 7533 07 Dec, 2016 Streptococcal meningitis G00.2 [facility] [address] [place] [address] 93066- 5895 07 Dec, 2016 [facility] [address] [place] [address] 97665- 0807 06 Dec, 2016 Streptococcal meningitis G00.2 [facility] [address] [place] [address] 12686- 3781 Dec, 2016 [facility] [address] [place] [address] 89366- 6381 Dec, 2016 Major depressive disorder, recurrent episode with anxious distress F33.9 [facility] [address] [place] [address] 58220- 8231 Nov, Fever, unspecified fever cause R50.9 [facility] [address] [place] [address] 77921- 1709 24 Nov, 2016 [facility] [address] [place] [address] 78583- 3786 Nov, Hypothyroid E03.9 [facility] [address] [place] [address] 71630- 9594 Nov, Generalized anxiety disorder F41.1 and Major depressive disorder, recurrent episode with anxious distress F33.9 [facility] [address] [place] [address] 69006- 9404 Nov, [facility] [address] [id number] Oct, Dental examination Z01.20 [facility] [address] [place] [id number] [place] [address] 90307- 2073 Oct, Generalized anxiety disorder F41.1 and Major depressive disorder, recurrent episode with anxious distress F33.9 [place] [address] [place] [address] 42337- 3448 Oct, Chronic kidney disease, stage 4 (severe) N18.4 [place] [address] [place] [id number] [place] [address] 43218- 5099 Oct, [place] [address] [place] [id number] [place] [address] 47198- 1268 Oct, Fibromyalgia M79.7 [place] [address] [place] [id number] [place] [address] 64747- 7104 Oct, [place] [address] [place] [id number] [place] [address] 22663- 4747 Oct, Generalized anxiety disorder F41.1 ; Major depressive disorder, recurrent episode with anxious distress F33.9 and Bipolar disorder, current episode manic without psychotic features F31.10 [place] [address] [address]- 6890 Sep, [place] [address] [place] [id number] [place] [address] 49921- 2164 Sep, [place] [address] [place] [address] 42264- 7064 Sep, Vitamin D deficiency E55.9 [place] [address] [address]- 1388 Sep, Vitamin D deficiency E55.9 [place] [address] [place] [address] 92475- 2541 Sep, [place] [address] [place] [id number] [place] [address] 70146- 0964 Sep, Chronic kidney disease, stage 4 (severe) N18.4 ; Hypothyroid E03.9 ; Restless leg G25.81 ; Fibromyalgia M79.7 ; Essential ( primary) hypertension I10 ; Vitamin D deficiency E55.9 ; Dyspepsia R10.13 ; Anemia in chronic kidney disease D63.1 ; Chronic kidney disease, unspecified N18.9 ; Coronary artery disease involving enterprise coronary artery of enterprise heart , angina presence unspecified I25.10 ; Screening breast examination Z12.39 and Low back pain M54.5 [place] [address] [place] [id number] [place] [address] 15519- 0651 August, Generalized anxiety disorder F41.1 and Major depressive disorder, recurrent episode with anxious distress F33.9 [place] [address] [place] [id number] [place] [address] 91350- 2491 August, Generalized anxiety disorder F41.1 and Major depressive disorder, recurrent episode with anxious distress F33.9 [place] [address] [place] [id number] [place] [address] 33011- 6422 August, Fibromyalgia M79.7 [place] [address] 80821- 6237 Jul, Generalized anxiety disorder F41.1 and Major depressive disorder, recurrent episode with anxious distress F33.9 [place] [address] [place] [id number] [place] [address] 23717- 4055 Jul, Fibromyalgia M79.7 [place] [address] [place] [id number] [place] [address] 66016- 2053 Jul, Generalized anxiety disorder F41.1 [place] [address] [place] [id number] [place] [address] 65845- 5352 May, [place] [address] [place] [id number] [place] [address] 99185- 2446 May, Hypothyroid E03.9 [place] [address] [place] [id number] [place] [address] 79363- 9445 May, Chronic kidney disease, stage 4 (severe) N18.4 ; Hypothyroid E03.9 ; Restless leg G25.81 ; Fibromyalgia M79.7 ; Essential ( primary) hypertension I10 ; Vitamin D deficiency E55.9 ; Dyspepsia R10.13 ; Acute non-recurrent maxillary sinusitis J01.00 ; Anemia in chronic kidney disease D63.1 ; Chronic kidney disease, unspecified N18.9 and Coronary artery disease involving enterprise coronary artery of enterprise heart, angina presence unspecified I25.10 [facility] [address] [place] [id number] [place] [address] 70914- 9977 May, Vitamin D deficiency, unspecified E55.9 [place] [address] [place] [id number] [place] [address] 11944- 9176 May, Generalized anxiety disorder F41.1 and Major depressive disorder, recurrent episode with anxious distress F33.9 [place] [address] [place] [id number] [place] [address] 68744- 4458 Apr, Pain in right knee M25.561 and Pain in left knee M25.562 [place] [address] [place] [id number] [place] [address] 02656- 7883 Apr, [place] [address] [place] [id number] [place] [address] 43592- 2562 Apr, [facility] [address] [place] [address] 77643- 9818 Apr, [place] [address] [place] [id number] [place] [address] 60308- 0323 Mar, Generalized anxiety disorder F41.1 and Major depressive disorder, recurrent episode with anxious distress F33.9 [place] [address] [place] [address] 19681- 8314 Mar, Generalized anxiety disorder F41.1 and Major depressive disorder, recurrent episode with anxious distress F33.9 [place] [address] [place] [id number] [place] [address] 22116- 4281 Mar, [facility] [address] [place] [id number] [place] [address] 29566- 3721 Mar, [place] [address] [place] [id number] [place] [address] 79314- 3818 Mar, [place] [address] [place] [id number] [place] [address] 88105- 9576 Mar, Asthma J45.909 and Fibromyalgia M79.7 [place] [address] [place] [id number] [place] [address] 26289 2546 Mar, Chronic kidney disease, stage 4 (severe) N18.4 ; Vitamin D deficiency E55.9 and Essential (primary) hypertension I10 [place] [address] 29267- 6292 Feb, [place] [address] 00295- 9771 Feb, Dysuria R30.0 ; Mixed stress and urge urinary incontinence N39.46 ; Fibromyalgia M79.7 and Chronic kidney disease, stage IV (severe) N18.4 [place] [address] 46262- 0036 Feb, Chronic kidney disease, stage 4 (severe) N18.4 [place] [address] 69758- 0233 Feb, Chronic kidney disease, stage 4 (severe) N18.4 [place] [address] [place] [id number] [place] [address] 83537- 0296 Feb, [place] [address] [place] [id number] [place] [address] 50946- 7180 Feb, Vitamin D deficiency, unspecified E55.9 [place] [address] [place] [id number] [place] [address] 26017 2546 Jan, [place] [address] 70838 2546 Jan, [place] [address] [place] [id number] [place] [address] 57004 2546 Dec, [place] [address] [place] [id number] [place] [address] 33331 2549 Dec, Chronic kidney disease, stage 4 (severe) N18.4 [facility] [address] [place] [id number] [place] [address] 63233- 1946 28 Dec, 2015 Dysthymic disorder F34.1 and Generalized anxiety disorder F41.1 [facility] [address] [place] [id number] [place] [address] 59787- 1824 Dec, [facility] [address] [place] [id number] [place] [address] 59326- 9823 Dec, [facility] [address] [place] [id number] [place] [address] 73344- 4772 Dec, Dysthymic disorder F34.1 and Generalized anxiety disorder F41.1 [place] [address] [place] [id number] [place] [address] 75806- 2332 Dec, Dysuria R30.0 ; Chronic kidney disease, stage 4 (severe) N18.4 ; Hypertension I10 ; Dyspepsia R10.13 ; Yeast dermatitis B37.2 ; Palpitations R00.2 ; Hypothyroid E03.9 ; Functional diarrhea K59.1 and Other seasonal allergic rhinitis J30.2 [facility] [address] [id number] [place] [address] 42185 -6232 Dec, [facility] [address] [place] [id number] [place] [address] 30731 -7405 Nov, Dysuria R30.0 and Stress incontinence N39.3 [facility] [address] [place] [id number] [place] [address] 04625- 8342 Nov, [facility] [address] [id number] [place] [address] 31984- 2089 Nov, [facility] [address] [place] [id number] [place] [address] 20458- 0089 Nov, Osteoarthritis of knees, bilateral M17.0 [facility] [address] [id number] [place] [address] 26284- 7572 Nov, Dysthymic disorder F34.1 and Generalized anxiety disorder F41.1 [facility] [address] [address]- 1432 Nov, [facility] [address] [id number] [place] [address] 78454- 5728 Nov, [facility] [address] [id number] [place] [address] 43089- 9861 Nov, Urgency of urination R39.15 [facility] [address] [id number] [place] [address] 43914- 0470 Nov, [facility] [address] [id number] [place] [address] 14743- 5105 Nov, Chronic kidney disease, stage 4 (severe) N18.4 [facility] [address] [id number] [place] [address] 53957- 4802 Oct, Hypertension I10 ; Coronary artery disease involving enterprise coronary artery of enterprise heart, angina presence unspecified I25.10 ; Palpitations R00.2 ; Hypothyroid E03.9 ; Right foot pain M79.671 ; Functional diarrhea K59.1 and Other seasonal allergic rhinitis J30.2 [facility] [id number] [place] [address] 84039- 3526 Oct, Dysthymic disorder F34.1 and Generalized anxiety disorder F41.1 [facility] [address] [place] [address] 77092- 1200 Sep, [facility] [address] [place] [address] 87391- 3444 Sep, [facility] [address] [place] [id number] [place] [phone]- [phone] Sep, [facility] [id number] [place] [address]- 6082 Sep, [facility] [id number] [place] [address] [phone]- [address] Sep, [facility] [address] [place] [address] 27 Sep, 2015 Dysthymic disorder F34.1 and Generalized anxiety disorder F41.1 [place] [address] [address] 16 Sep, 2015 Asthma with acute exacerbation in adult J45.901 ; Dysuria R30.0 ; Chronic kidney disease, stage 4 (severe) N18.4 and History of anemia Z86.2 [place] [address] [address] 2015 Generalized anxiety disorder F41.1 and Dysthymic disorder F34.[address] [address] August, Screening breast examination Z12.39 and Acute recurrent maxillary sinusitis J01.[address] 69463- 5018 August, Osteoarthritis of knees, bilateral M17.[address] 22362- 0268 August, Chronic kidney disease, stage 4 (severe) N18.4 ; Acute non- recurrent maxillary sinusitis J01.00 ; Urinary problem R39.89 ; Bowel habit changes R19.4 ; Functional diarrhea K59.1 and History of colon polyps Z86.010 [place] [id number] [place] [address] 78908- 9017 Jul, Dysthymic disorder F34.1 and Generalized anxiety disorder F41.1 [place] [id number] [place] [address] 30516- 1985 Jul, [address] 62801- 3526 Jul, Dysthymic disorder F34.1 ; Generalized anxiety disorder F41.1 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 99083- 9607 Jul, [facility] [id number] [place] [address] 17360- 9000 Jun, [facility] [id number] [place] [address] 47585- 2832 Jun, [facility] [id number] [place] [address] 39426- 0987 May, [facility] [id number] [place] [address] 39595- 0206 May, Dysthymic disorder F34.1 and Generalized anxiety disorder F41.1 [place] [id number] [place] [address] 50898- 4451 Apr, Kidney disease N28.9 [place] [id number] [place] [address] 66898- 3219 Apr, Generalized anxiety disorder F41.1 and Dysthymic disorder F34.1 [place] [id number] [place] [address] 38107- 0294 Apr, Chronic kidney disease, stage 4 (severe) N18.4 [place] [id number] [place] [address] 82289- 8440 Apr, Generalized anxiety disorder F41.1 ; Major depression, recurrent F33.9 and Sleep disturbance G47.9 [place] [id number] [place] [address] 42490- 4663 Mar, Generalized anxiety disorder F41.1 and Dysthymic disorder F34.1 [place] [id number] [place] [address] 73345- 5842 Mar, Generalized anxiety disorder F41.1 ; Dysthymic disorder F34.1 and Insomnia G47.00 [place] [id number] [place] [address] 48715- 7741 Mar, [place] [id number] [place] [address] 74243- 2362 Mar, [facility] [address] [place] [address] 61750- 8514 Mar, Osteoarthritis of knees, bilateral M17.0 [place] [id number] [place] [address] 73607- 1093 Mar, Hypertension I10 ; Hypothyroid E03.9 ; Dysthymic disorder F34.1 ; Chronic kidney disease, stage 4 (severe) N18.4 and Nausea & vomiting R11.2 [place] [id number] [place] [address] 25776- 4692 Mar, Generalized anxiety disorder F41.1 ; Dysthymic disorder F34.1 and Insomnia G47.00 [place] [id number] [place] [address] 98303- 6650 Mar, Dehydration E86.0 ; Chronic kidney disease, stage 4 (severe ) N18.4 and Nausea & vomiting R11.2 [facility] [id number] [place] [address] 39954 -2766 Mar, Gastroenteritis K52.9 [place] [address] 04124- 0278 Mar, [place] [id number] [place] [address] 73840- 2146 Mar, [place] [id number] [place] [address] 25090- 7323 Feb, Dysthymic disorder F34.1 and Generalized anxiety disorder F41.1 [place] [id number] [place] [address] 15783- 3448 Jan, UTI (urinary tract infection) N39.0 ; Asthma J45.909 ; Coronary artery disease involving enterprise coronary artery of enterprise heart, angina presence unspecified I25.10 ; Hypertension I10 ; Hypothyroid E03.9 ; Vitamin D deficiency E55.9 ; Insomnia G47.00 ; Palpitations R00.2 ; Depressed F32.9 ; Restless leg G25.81 and Anxiety F41.9 [place] [address] [place] [address] 31762- 9634 19 Jan, 2015 Dysthymic disorder F34.1 and Generalized anxiety disorder F41.1 [place] [id number] [place] [address] 38744- 3221 Jan, [place] [id number] [place] [address] 49427- 9728 Dec, [place] [id number] [place] [address] 20236- 4116 28 Dec, 2014 Alkalosis 276.3 ; Chronic kidney disease, Stage IV (severe) 585.4 ; Hyperpotassemia 276.7 ; Secondary hyperparathyroidism, renal 588.81 ; Proteinuria 791.0 ; Unspecified vitamin D deficiency 268.9 ; Anemia in chronic kidney disease 285.21 ; Other and unspecified hyperlipidemia 272.4 ; Hypertension, essential, benign 401.1 and Chronic kidney disease (CKD), stage III (moderate) 585.3 [place] [id number] [place] [address] 39270- 1626 Dec, [place] [id number] [place] [address] 85982- 5060 16 Dec, 2014 Depressive disorder, not elsewhere classified 311 and Generalized anxiety disorder 300.02 [place] [id number] [place] [address] 82106- 7972 10 Dec, 2014 [place] [id number] [place] [address] 62194- 2899 08 Dec, 2014 [place] [id number] [place] [address] 70973- 9795 Nov, Depressive disorder, not elsewhere classified 311 and Generalized anxiety disorder 300.02 [place] [id number] [place] [address] 05810- 5892 Nov, Arthritis of both knees 716.96 [place] [id number] [place] [address] 90499- 5088 Nov, PAF (paroxysmal atrial fibrillation) 427.31 ; CAD (coronary artery disease) 414.00 ; Chest pain 786.50 and Chronic kidney disease (CKD) stage G4/A1, severely decreased glomerular filtration rate (GFR) between 15-29 mL/min/1.73 square meter and albuminuria creatinine ratio less than 30 mg/g 585.4 [place] [id number] [place] [address] 12973- 2249 Oct, Coronary atherosclerosis of unspecified type of vessel, enterprise or graft 414.00 ; Chronic kidney disease, Stage IV (severe) 585.4 ; Hypertension 401.9 and Edema 782.[address] 26882- 2151 Oct, Depressive disorder, not elsewhere classified 311 and Generalized anxiety disorder 300.[address] 20538- 5663 Oct, Depressive disorder, not elsewhere classified 311 and Generalized anxiety disorder 300.02 [place] [address] 18777- 4972 Oct, [address] 28627- 5267 Oct, [place] [id number] [place] [address] 01398- 5620 Sep, [place] [id number] [place] [address] 42175- 8164 Sep, Chronic kidney disease, Stage IV (severe) 585.4 [place] [id number] [place] [address] 17916- 2709 Sep, [address] 84941- 5141 Sep, Coronary atherosclerosis of unspecified type of vessel, enterprise or graft 414.00 ; Hypertension 401.9 ; Edema 782.3 and Hypothyroidism 244.[address] 37152- 5428 Sep, Coronary atherosclerosis of unspecified type of vessel, enterprise or graft 414.00 ; Hypertension 401.9 ; Fibromyalgia 729.1 ; Edema 782.3 ; Hypothyroidism 244.9 and Anemia 285.9 [facility] [id number] [place] [address] 81951- 4975 Sep, Anxiety disorder, unspecified 300.00 and Depressive disorder , not elsewhere classified 311 [facility] [address] 77281- 5328 Sep, [facility] [address] 04425- 0181 August, Generalized anxiety disorder 300.02 [facility] [address] 69887- 0148 August, Closed fracture of lateral malleolus 824.2 [facility] [address] 75559- 0764 Jul, [facility] [address] 86754- 2670 Jul, [facility] [id number] [place] [address] 37203- 8257 Jun, [facility] [id number] [place] [address] 66539- 0143 Jun, [facility] [id number] [place] [address] 07625- 9754 Jun, [facility] [id number] [place] [address] 73943- 1236 Jun, [facility] [address] 61254- 6489 Jun, [facility] [id number] [place] [address] 55981- 9847 Jun, [facility] [id number] [place] [address] 18809- 6534 May, [facility] [place] [facility] [address] [id number] [place] [address]- 2983 19 May, 2014 [facility] [place] [facility] [address] [id number] [place] [address]- 4816 18 May, 2014 [facility] [place] [facility] [address] [id number] [place] [address] 2546 18 May, 2014 [facility] [place] [facility] [address] [id number] [place] [address]- 0806 16 May, 2014 [facility] [place] [facility] [address] [id number] [place] [address]- 8255 16 May, 2014 [facility] [place] [facility] [address] [id number] [place] [address]- 6616 13 May, 2014 [facility] [place] [facility] [address] [id number] [place] [address]- 3649 13 May, 2014 [facility] [place] [facility] [address] [id number] [place] [address]- 9231 10 May, 2014 [facility] [place] [facility] [address] [id number] [place] [address]- 7254 10 May, 2014 [facility] [place] [facility] [address] [facility] [id number] [place] [address]- 4937 Apr, [facility] [place] [facility] [address] [id number] [place] [address]- 4577 Apr, [facility] [place] [facility] [address] [id number] [place] [address]- 3628 Mar, [facility] [place] [facility] [address] [id number] [place] [address] 2546 Mar, [facility] [place] [facility] [address] [id number] [place] [address]- 2546 Mar, [facility] [place] [facility] [address] [id number] [place] [address]- 2543 Mar, [facility] [place] [facility] [address] [id number] [place] [address]- 6231 15 Mar, 2014 [facility] [place] [facility] [address] [id number] [place] [address]- 7449 15 Mar, 2014 [facility] [place] [facility] [address] [id number] [place] [address]- 8520 Mar, [facility] [place] [facility] [address] [id number] [place] [address]- 5791 Feb, [facility] [place] [facility] [address] [id number] [place] [address]- 4105 Feb, [facility] [place] [facility] [address] [id number] [place] [address]- 3828 Feb, [facility] [place] [facility] [address] [id number] [place] [address]- 9649 Jan, [facility] [place] [facility] [address] [id number] [place] [address]- 9327 Jan, [facility] [place] [facility] [address] [id number] [place] [address]- 7252 Jan, [facility] [place] [facility] [address] [id number] [place] [address]- 3508 Jan, [facility] [place] [facility] [address] [id number] [place] [address]- 4463 Jan, [facility] [place] [facility] [address] [id number] [place] [address]- 5351 Jan, [facility] [place] [facility] [address] [id number], [place] [address]- 4110 Jan, [facility] [place] [facility] [address] [id number], [place] [address]- 1669 Jan, [facility] [place] [facility] [address] [id number], [place] [address]- 7040 Jan, [facility] [place] [facility] [address] [id number], [place] [address]- 9520 Jan, [facility] [place] [facility] [address] [id number] [place] [address]- 3798 Nov, [facility] [place] [facility] [address] [id number] [place] [address]- 3984 Nov, [facility] [place] [facility] [address] [id number] [place] [address]- 0596 Nov, [facility] [place] [facility] [address] [id number] [place] [address]- 2958 Oct, [facility] [place] [facility] [address] [id number] [place] [address]- 1189 Oct, [facility] [place] [facility] [address] [id number] [place] [address]- 8165 Oct, [facility] [place] [facility] [address] [id number] [place] [address]- 0270 Oct, [facility] [place] [facility] [address] [id number] [place] [address]- 9602 Oct, [facility] [place] [facility] [address] [id number] [place] [address]- 0164 Oct, [facility] [place] [facility] [address] [id number] [place] [address]- 5500 Oct, [facility] [place] [facility] [address] [id number] [place] [address]- 5461 Oct, [facility] [place] [facility] [address] [id number] [place] [address]- 3438 Oct, [facility] [place] [facility] [address] [id number] [place] [address]- 1050 Sep, [facility] [place] [facility] [address] [id number] [place] [address]- 7340 Sep, [facility] [place] [facility] [address] [id number] [place] [address]- 0484 Sep, [facility] [place] [facility] [address] [id number] [place] [address]- 3049 Sep, [facility] [place] [facility] [address] [id number] [place] [address]- 2002 Sep, [facility] [place] [facility] [address] [id number] [place] [address]- 4871 Sep, [facility] [place] [facility] [address] [id number] [place] [address]- 0617 Sep, [facility] [place] [facility] [address] [id number] [place] [address]- 6044 Sep, [facility] [place] [facility] [address] [id number] [place] [address]- 7089 Sep, [facility] [place] [facility] [address] [id number] [place] [address]- 9992 August, [facility] [place] [facility] [address] [id number] [place] [address]- 5768 August, [facility] [place] [facility] [address] [id number] [place] [address]- 8339 August, [facility] [place] [facility] [address] [id number] [place] [address]- 1341 August, [facility] [place] [facility] [address] [id number] [place] [address]- 0159 August, [facility] [place] [facility] [address] [id number], [place] [address]- 6685 August, [facility] [place] [facility] [address] [id number], [place] [address]- 5357 Jul, [facility] [place] [facility] [address] [id number] [place] [address]- 4157 Jul, [facility] [place] [facility] [address] [id number] [place] [address]- 6584 Jul, [facility] [place] [facility] [address] [id number] [place] [address]- 2295 Jul, [facility] [place] [facility] [address] [id number] [place] [address]- 0691 07 Jul, 2013 [facility] [place] [facility] [address] [id number] [place] [address]- 0956 Jul, [facility] [place] [facility] [address] [id number] [place] [address]- 5336 Jun, [facility] [place] [facility] [address] [id number] [place] [address]- 2509 Jun, [facility] [place] [facility] [address] [id number] [place] [address]- 0423 May, [facility] [place] [facility] [address] [id number] [place] [address]- 9676 May, [facility] [place] [facility] [address] [id number] [place] [address]- 6196 May, [facility] [place] [facility] [address] [facility] [id number] [place] [address]- 0125 May, [facility] [place] [facility] [address] [id number] [place] [address]- 5322 Apr, [facility] [place] [facility] [address] [id number] [place] [address]- 5804 Apr, [facility] [place] [facility] [address] [facility] [id number] [place] [address]- 9448 Mar, [facility] [place] [facility] [address] [id number] [place] [address]- 1203 18 Mar, 2013 [facility] [place] [facility] [address] [id number] [place] [address] 2548 17 Mar, 2013 [facility] [place] [facility] [address] [id number] [place] [address]- 7526 Mar, [facility] [place] [facility] [address] [facility] [id number] [place] [address]- 1326 05 Mar, 2013 [facility] [place] [facility] [address] [facility] [id number] [place] [address]- 9290 Mar, [facility] [place] [facility] [address] [id number] [place] [address]- 5166 Feb, [facility] [place] [facility] [address] [id number] [place] [address]- 8990 Feb, [facility] [place] [facility] [address] [id number] [place] [address]- 5649 Feb, [facility] [place] [facility] [address] [id number] [place] [address]- 4303 Feb, [facility] [place] [facility] [address] [id number] [place] [address]- 9640 Feb, [facility] [place] [facility] [address] [id number] [place] [address]- 0255 Feb, [facility] [place] [facility] [address] [id number] [place] [address]- 3172 Jan, [facility] [place] [facility] [address] [id number] [place] [address]- 8931 Jan, [facility] [place] [facility] [address] [id number] [place] [address]- 5049 Jan, [facility] [place] [facility] [address] [id number] [place] [address]- 0068 Jan, [facility] [place] [facility] [address] [id number] [place] [address]- 6441 Jan, [facility] [place] [facility] [address] [id number], [place] [address]- 9309 Jan, [facility] [place] [facility] [address] [id number] [place] [address]- 2776 12 Dec, 2012 [facility] [place] [facility] [address] [id number] [place] [address]- 7808 09 Dec, 2012 [facility] [place] [facility] [address] [id number] [place] [address]- 1793 16 Nov, 2012 [facility] [place] [facility] [address] [id number] [place] [address]- 3413 Nov, [facility] [address] [id number] [place] [address]- 0305 Oct, [facility] [place] [facility] [address] [id number] [place] [address]- 6602 Oct, [facility] [address] [id number] [place] [address]- 6749 Oct, [facility] [address] [id number] [place] [address]- 5502 Oct, [facility] [address] [id number] [place] [address]- 7347 Oct, [facility] [address] [id number] [place] [address]- 3745 Oct, [facility] [address] [id number] [place] [address]- 2365 Sep, [facility] [address] [id number] [place] [address]- 0527 Sep, [facility] [address] [id number] [place] [address]- 3962 Sep, [facility] [address] [id number] [place] [address]- 7664 Sep, [facility] [address] [id number] [place] [address]- 5906 August, [facility] [place] [facility] [address] [id number] [place] [address]- 5000 August, [facility] [place] [facility] [address] [id number] [place] [address]- 8811 August, [facility] [place] [facility] [address] [id number] [place] [address]- 8138 August, [facility] [place] [facility] [address] [id number] [place] [address]- 7542 August, [facility] [address] [id number] [place] [address]- 8146 Jul, [facility] [address] [id number] [place] [address]- 1683 Jul, [facility] [address] [id number] [place] [address]- 4354 Jul, [facility] [address] [id number] [place] [address]- 1995 Jul, [facility] [address] [id number] [place] [address]- 4344 Jul, [facility] [address] [id number] [place] [address]- 6823 Jul, [facility] [address] [id number] [place] 2817 Jul, [facility] [address] [id number] [place] [address]- 2686 Jul, [facility] [address] [id number] [place] [address]- 8469 Jul, [facility] [address] [id number] [place] [address]- 0282 Jul, [facility] [address] [id number] [id number] Jun, [facility] [address] [id number] [place] [address]- 3352 Jun, [facility] [address] [id number] [place] [address] Jun, [facility] [place] [facility] [address] [id number] [place] [address] Jun, [facility] [place] [facility] [address] [id number] [place] [address] Jun, [facility] [address] [id number] [place] [address] May, [facility] [address] [id number] [place] [address] May, [facility] [place] [facility] [address] [id number] [place] [address] May, [facility] [address] [id number] [place] [address] Apr, [facility] [place] [facility] [address] [id number] [place] [address] Apr, [facility] [address] [id number] [place] [address] Apr, [facility] [place] [facility] [address] [id number] [place] [address] Apr, [facility] [address] [facility] [id number] [place] [address] Apr, [facility] [address] [id number] [place] [address] Apr, [facility] [address] [id number] [place] [address] Mar, [facility] [place] [facility] [address] [id number] [place] [address] Mar, [facility] [place] [facility] [address] [id number], [place] [address] Mar, [facility] [place] [facility] [address] [id number], [place] [address] Mar, [facility] [place] [facility] [address] [id number] [place] [address] Feb, [facility] [place] [facility] [address] [id number] [place] [address] Feb, [facility] [place] [facility] [address] [facility] [id number] [place] [address] Feb, [facility] [place] [facility] [address] [id number] [place] [address] Feb, [facility] [place] [facility] [address] [id number] [place] [address] Feb, [facility] [place] [facility] [address] [id number] [place] [address] Feb, [facility] [place] [facility] [address] [id number] [place] [address] Feb, [facility] [place] [facility] [address] [id number] [place] [address] Feb, [facility] [place] [facility] [address] [id number] [place] [address] Feb, [facility] [place] [facility] [address] [id number] [place] [address] Feb, [facility] [place] [facility] [address] [id number] [place] [address] Feb, [facility] [place] [facility] [address] [id number] [place] [address] Feb, [facility] [place] [facility] [address] [id number] [place] [address] Feb, [facility] [place] [facility] [address] [facility] [id number] [place] [address] Feb, [facility] [place] [facility] [address] [id number] [place] [address] Feb, [facility] [place] [facility] [address] [id number], [place] [address] Feb, [facility] [place] [facility] [address] [id number] [place] [address] Jan, [facility] [place] [facility] [address] [id number] [place] [address] Jan, [facility] [place] [facility] [address] [id number], [place] [address] Jan, [facility] [place] [facility] [address] [id number] [place] [address] 31 Jan, 2012 [facility] [place] [facility] [address] [id number] [place] [address] 30 Jan, 2012 [facility] [place] [facility] [address] [id number] [place] [address] Jan, [facility] [place] [facility] [address] [id number] [place] [address] 25 Jan, 2012 [facility] [place] [facility] [address] [id number] [place] [address] 16 Jan, 2012 [facility] [place] [facility] [address] [id number] [place] [address] 16 Jan, 2012 [facility] [place] [facility] [address] [id number] [place] [address] 15 Jan, 2012 [facility] [place] [facility] [address] [id number] [place] [address]- [address] 15 Jan, 2012 [facility] [place] [facility] [address] [id number] [place] [address] Jan, [facility] [place] [facility] [address] [id number] [place] [address] 26 Dec, 2011 [facility] [place] [facility] [address] [id number] [place] [address] 26 Sep2011 [facility] [place] [facility] [address] [id number] [place] [address] 0[address] 24 Sep2011 [facility] [place] [facility] [address] [id number] [place] [address]- 3[address] 23 Sep2011 [facility] [place] [facility] [address] [id number] [place] [address] 22 Sep2011 [facility] [place] [facility] [address] [id number] [place] [address] 21 Sep2011 [facility] [place] [facility] [address] [id number] [place] [address] 20 Dec, 2011 [facility] [place] [facility] [address] [id number] [place] [address] 20 Dec, 2011 [facility] [place] [facility] [address] [id number] [place] [address] 07 Dec, 2011 [facility] [place] [facility] [address] [id number] [place] [address] 06 Dec, 2011 [facility] [place] [facility] [address] [id number] [place] [address] 06 Dec, 2011 [facility] [place] [facility] [address] [id number] [place] [address] 05 Dec, 2011 [facility] [place] [facility] [address] [id number] [place] [address] 23 Nov, 2011 [facility] [place] [facility] [address] [id number] [place] [address] 17 Nov, 2011 [facility] [place] [facility] [address] [id number] [place] [address] 13 Nov, 2011 [facility] [place] [facility] [address] [id number] [place] [address] Nov, [facility] [place] [facility] [address] [id number] [place] [address] Nov, [facility] [place] [facility] [address] [id number] [place] [address] Nov, [facility] [place] [facility] [address] [id number] [place] [address]- [address] Nov, [facility] [place] [facility] [address] [id number] [place] [address] 2969 Nov, [facility] [place] [facility] [address] [id number] [place] [address] Oct, [facility] [place] [facility] [address] [id number] [place] [address] 15[address] Oct, [facility] [place] [facility] [address] [id number] [place] [address] Oct, [facility] [address] [id number] [place] [address] Oct, [facility] [address] [id number] [place] [address]676 Oct, [facility] [address] [id number] [place] [address]120 Oct, [facility] [address] [id number] [place] [address] Oct, [facility] [address] [id number] [place] [address] Sep, [facility] [address] [id number] [place] [address] Sep, [facility] [address] [id number] [place] [address] August, [facility] [address] [id number] [place] [address] August, [facility] [address] [id number] [place] [address] August, [facility] [address] [id number] [place] [address] 7938 August, [facility] [address] [id number] [place] [address]35 Jul, [facility] [address] [id number] [place] [address] 97[address] Jul, [facility] [place] [facility] [address] [id number] [place] [address] Jul, [facility] [place] [facility] [address] [id number] [place] [address] 59[address] Jul, [facility] [address] [id number] [place] [address] Jul, [facility] [address] [id number] [place] [address]478 Jul, [facility] [place] [facility] [address] [id number] [place] [address] 2316 Jul, [facility] [place] [facility] [address] [id number] [place] [address] 8856 Jul, [facility] [place] [facility] [address] [id number] [place] [address]- 6216 Jul, [facility] [place] [facility] [address] [id number] [place] [address] Jun, [facility] [place] [facility] [address] [id number] [place] [address]- [address]146 Jun, [facility] [place] [facility] [address] [id number] [place] [address]- 1766 15 Jun, 2011 [facility] [place] [facility] [address] [id number] [place] [address]- 3464 14 Jun, 2011 [facility] [place] [facility] [address] [id number] [place] [address]- 7526 Jun, [facility] [place] [facility] [address] [id number] [place] [address]- 6104 Jun, [facility] [place] [facility] [address] [id number] [place] [address]- [address] Jun, [facility] [place] [facility] [address] [id number], [place] [address] May, [facility] [place] [facility] [address] [id number] [place] [address]- [address] 24 May, 2011 [facility] [place] [facility] [address] [id number] [place] [address] May, [facility] [place] [facility] [address] [id number] [place] [address]- [address] May, [facility] [place] [facility] [address] [id number] [place] [address]- 9436 03 May, 2011 [facility] [address] [id number] [place] [address]- [address]246 Apr, [facility] [place] [facility] [address] [id number] [place] [address]- [address] Apr, [facility] [address] [id number] [place] [address]- 9126 Apr, [facility] [place] [facility] [address] [id number] [place] [address]- 0594 Apr, [facility] [address] [id number] [place] [address]- 9346 Apr, [facility] [place] [facility] [address] [id number] [place] [address] Mar, [facility] [address] [id number] [place] [address]- 9811 Mar, [facility] [place] [facility] [address] [id number] [place] [address]- [address]202 Mar, [facility] [place] [facility] [address] [id number] [place] [address]- 0092 Mar, [facility] [place] [facility] [address] [facility] [id number] [place] [address]- [address]240 Mar, [facility] [place] [facility] [address] [id number] [place] [address]- 0036 Mar, [facility] [place] [facility] [address] [id number] [place] [address]- 2546 Mar, [facility] [place] [facility] [address] [id number] [place] [address] 2338 Feb, [facility] [place] [facility] [address] [id number] [place] [address]- 3076 Feb, [facility] [place] [facility] [address] [id number] [place] [address]- 8156 Feb, [facility] [place] [facility] [address] [id number] [place] [address]- 4348 Feb, [facility] [place] [facility] [address] [id number] [place] [address]- 8811 Jan, [facility] [place] [facility] [address] [id number] [place] [address]- 1734 Jan, [facility] [place] [facility] [address] [id number] [place] [address]- 4570 Jan, [facility] [place] [facility] [address] [id number] [place] [address]- 2613 Jan, [facility] [place] [facility] [address] [id number] [place] [address]- 0045 Nov, [facility] [place] [facility] [address] [id number] [place] [address]- 2072 Mar, [facility] [place] [facility] [address] [id number] [place] [address]- 0609 Mar, [facility] [place] [facility] [address] [id number] [place] [address]- 0126 Mar, [facility] [place] [facility] [address] [id number] [place] [address]- 7758 Mar, [facility] [place] [facility] [address] [id number] [place] [address]- 3688 Mar, [facility] [place] [facility] [address] [id number] [place] [address]- 1797 Mar, [facility] [place] [facility] [address] [id number] [place] [address]- 6991 Feb, [facility] [place] [facility] [address] [id number] [place] [address]- 0783 Feb, [facility] [place] [facility] [address] [id number] [place] [address]- 1566 Jan, [facility] [place] [facility] [address] [id number] [place] [address]- [address] Jan, [facility] [address] [facility] [id number] [place] [address] Jan, IMMUNIZATIONS No Known Immunizations SOCIAL HISTORY Never Assessed REASON FOR VISIT Refill request PLAN OF CARE VITAL SIGNS MEDICATIONS Medication Instructions Dosage Frequency Start Date End Date Duration Status Lyrica 150 MG Orally 3 times a day 1 capsule 8h 28 days Active RESULTS No Results PROCEDURES [...] History [facility] psych for SI 1988 Hospitalization History [facility]-Altered mental status 05/2017
--- OUTSIDE RECORDS SUMMARY | 2018-05-29 09:04 | XMS REPORT ---
Author Author ISABEL MAE 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 Name Role Phone ISABEL MAE Unavailable PROBLEMS Type Condition ICD9-CM Code OVO11-YY Code Onset Dates Condition Status SNOMED Code Problem Long-term use of high-risk medication Z79.899 Active 697706101 Problem Abnormal chest CT R93.8 Active 539176327 Problem Generalized anxiety disorder F41.1 Active 71418500 Problem Low back pain M54.5 Active 318912328 Problem Dysthymic disorder F34.1 Active 16400827 Problem Depressed F32.9 Active 12955242 Problem Coronary artery disease involving emmonak coronary artery of emmonak heart, angina presence unspecified I25.10 Active 1129764952390 Problem Hypothyroid E03.9 Active 08417659 Problem Insomnia G47.00 Active 824610066 Problem Vitamin D deficiency E55.9 Active 43008063 Problem Asthma J45.909 Active 232800431 Problem Chronic kidney disease, unspecified N18.9 Active 540560233 Problem Palpitations R00.2 Active 59886061 Problem Anemia in chronic kidney disease D63.1 Active 185422231711794 Problem Primary osteoarthritis of left knee M17.12 Active 323142410 Problem Bipolar disorder, current episode manic without psychotic features F31.10 Active 287331762 Problem Restless leg syndrome G25.81 Active 06602139 Problem Seasonal allergic rhinitis due to pollen J30.1 Active 52193333 Problem Functional diarrhea K59.1 Active 49542611 Problem Chronic kidney disease, stage 4 (severe) N18.4 Active 383587771 Problem Restless leg G25.81 Active 26546129 Problem Mood disorder F39 Active 36384690 Problem Degenerative tear of medial meniscus of left knee M23.204 Active 713033530 Problem Body mass index (BMI) of 40.0-44.9 in adult Z68.41 Active 340762340 Problem Stage 3 chronic kidney disease N18.3 Active 649002247 Problem Asthma with acute exacerbation in adult J45.901 Active 390347801 Problem Other seasonal allergic rhinitis J30.2 Active 194461085 Problem History of colon polyps Z86.010 Active 413558169 Problem History of anemia Z86.2 Active 470963261 Problem Fibromyalgia M79.7 Active 817849032 Problem Essential (primary) hypertension I10 Active 25128423 Problem Hypokalemia E87.6 Active 04887824 Problem Mixed stress and urge urinary incontinence N39.46 Active 073844055 ALLERGIES No Information ENCOUNTERS Encounter Location Date Diagnosis [place] [address] [address] Oct, [place] [address] 35414- 5857 Oct, Fibromyalgia M79.7 [place] [address] 40405- 6972 Sep, Restless leg syndrome G25.81 and Restless leg G25.81 [place] [address] [place] [id number] [place] [address] 04811- 3299 Sep, [place] [address] 52144- 0043 Sep, Seasonal allergic rhinitis due to pollen J30.1 ; Screening for breast cancer Z12.31 ; Chest pain at rest R07.9 ; Restless leg syndrome G25.81 ; Essential (primary) hypertension I10 and Depressed F32.9 [place] [address] [place] [id number] [place] [address] 42709- 8257 August, Fibromyalgia M79.7 [place] [address] 82819- 7274 August, [place] [address] 96859- 9190 August, [place] [address] 24868- 9011 August, Ab[address] chest [address] R93.8 [facility] [id number] [place] [address] 24494- 7186 August, Generalized anxiety disorder F41.1 and Major depressive disorder, recurrent episode with anxious distress F33.9 [facility] [address] [place] [id number] [place] [address] 75977- 1214 August, Abnormal chest CT R93.8 [facility] [address] [place] [id number] [place] [address] 92689- 0632 Jul, [place] [address] [place] [id number] [place] [address] 48075- 4755 Jul, Chronic kidney disease, stage 4 (severe) N18.4 [place] [address] [place] [id number] [place] [address] 36857- 3782 Jul, [place] [address] [place] [id number] [place] [address] 51642- 1096 Jul, Restless leg G25.81 ; Mixed stress and urge urinary incontinence N39.46 and Fibromyalgia M79.7 [place] [address] [place] [id number] [place] [address] 90964- 4397 Jul, Chronic kidney disease, stage 4 (severe) N18.4 [place] [address] [place] [id number] [place] [address] 86089- 1902 Jun, Orthostatic hypotension I95.1 ; Chronic kidney disease, stage 4 (severe) N18.4 ; Chest wall discomfort R07.89 and Body mass index (BMI) of 40.0-44.9 in adult Z68.41 [place] [address] [place] [id number] [address] Jun, [place] [address] [place] [id number] [place] [address] 50294- 2445 Jun, Orthostatic hypotension I95.1 [place] [address] [place] [id number] [place] [address] 38697- 8677 Jun, [facility] [address] [place] [id number] [place] [address] 73044 -4195 Jun, Orthostatic hypotension I95.1 ; Dysuria R30.0 and Acute cystitis without hematuria N30.00 [facility] [address] [place] [id number] [place] [address] 99719- 9020 Jun, [facility] [address] [place] [id number] [place] [address] 98136- 0401 Jun, Chronic kidney disease, stage 4 (severe) N18.4 [facility] [address] [place] [id number] [place] [address] 80760- 4459 Jun, Fibromyalgia M79.7 [facility] [address] [place] [id number] [place] [address] 17206- 4782 Jun, [facility] [address] [place] [id number] [place] [address] 97109- 6015 Jun, [facility] [address] [place] [id number] [place] [address] 46400- [address] May, Ab[address] chest [address] R93.8 and Stage 3 chronic kidney disease N18.3 [facility] [address] [place] [id number] [place] [address] 90355- 7392 May, Chronic kidney disease, stage 4 (severe) N18.4 [facility] [address] [place] [id number] [place] [address] 39792- 3926 May, Chronic kidney disease, stage 4 (severe) N18.4 [facility] [address] [place] [id number] [place] [address] 40866- 8466 May, Ab[address] chest [address] R93.8 [facility] [address] [place] [id number] [place] [address] 85005- 6308 May, [facility] [address] [place] [id number] [place] [address] 51458- 1033 May, [facility] [address] [place] [id number] [place] [address] 38347- 8810 May, Generalized anxiety disorder F41.1 and Major depressive disorder, recurrent episode with anxious distress F33.9 [place] [address] [place] [address] 00973- 4556 May, Mood disorder F39 [facility] [address] [place] [address] 17140- 3827 Apr, [facility] [address] [place] [id number] [place] [address] 04887- 6415 Apr, Infected skin lesion L08.9 and Muscle strain of right shoulder region, initial encounter S46.911A [place] [address] [place] [id number] [place] [address] 20897- 8501 Apr, Generalized anxiety disorder F41.1 and Major depressive disorder, recurrent episode with anxious distress F33.9 [place] [address] [place] [id number] [place] [address] 42098- 2652 Apr, [facility] [address] [place] [id number] [place] [address] 26686- 0382 Apr, Recent urinary tract infection Z87.440 and Hypothyroid E03.9 [place] [address] [place] [id number] [place] [address] 90545- 2287 Apr, Generalized anxiety disorder F41.1 and Major depressive disorder, recurrent episode with anxious distress F33.9 [place] [address] [place] [id number] [place] [address] 19617- 8805 Apr, Recent urinary tract infection Z87.440 [place] [address] [place] [address] 94488- 8993 Mar, [facility] [address] [place] [id number] [place] [address] 01882 -4047 Mar, Dysuria R30.0 ; Acute cystitis without hematuria N30.00 and BMI 40.0-44.9, adult Z68.41 [place] [address] [place] [id number] [place] [address] 67788- 6086 14 Mar, 2017 [facility] [address] [place] [address] 44587- 2451 Mar, [facility] [address] [place] [id number] [place] [address] 47465- 8569 Mar, Generalized anxiety disorder F41.1 and Major depressive disorder, recurrent episode with anxious distress F33.9 [facility] [address] [place] [id number] [place] [address] 94581- 7673 Feb, Conjunctivitis, bacterial H10.9 [place] [address] [place] [id number] [place] [address] 04925- 7596 Feb, [facility] [address] [place] [id number] [place] [address] 39450 -3135 Feb, Conjunctivitis, bacterial H10.9 [place] [address] [place] [id number] [place] [address] 98228- 2112 Feb, [facility] [address] [place] [id number] [place] [address] 05130 -1719 Feb, Dysuria R30.0 ; Acute cystitis N30.00 and BMI 40.0-44.9, adult Z68.41 [place] [address] [place] [id number] [place] [address] 46857- 5126 Feb, [place] [address] [place] [id number] [place] [address] 21030- 1965 Feb, Generalized anxiety disorder F41.1 and Major depressive disorder, recurrent episode with anxious distress F33.9 [place] [address] [place] [id number] [place] [address] 18327- 4472 Feb, Mood disorder F39 and BMI 40.0-44.9, adult Z68.41 [facility] [address] [place] [address] 75538- 8335 Jan, [facility] [address] [place] [id number] [place] [address] 87295- 6098 Jan, [place] [id number] [place] [address] 85206- 6139 Jan, Hypothyroid E03.9 [place] [address] [place] [id number] [place] [address] 06581- 2410 Jan, [place] [address] [place] [id number] [place] [address] 54874- 3628 Jan, Chronic kidney disease, unspecified N18.9 ; Hypokalemia E87.6 ; Essential (primary) hypertension I10 ; Fibromyalgia M79.7 ; Coronary artery disease involving emmonak coronary artery of emmonak heart, angina presence unspecified I25.10 ; Hypothyroid E03.9 and Encounter for immunization Z23 [place] [address] [place] [id number] [place] [address] 03097- 7926 Jan, Hypothyroid E03.9 [place] [address] [place] [id number] [place] [address] 70459- 5596 Jan, [place] [address] [place] [id number] [place] [address] 27067- 6048 Dec, Vitamin D deficiency E55.9 [place] [address] [place] [id number] [place] [address] 09929- 0544 Dec, Primary osteoarthritis of left knee M17.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 [place] [address] [place] [id number] [place] [address] 66651- 2917 19 Dec, 2016 Fibromyalgia M79.7 [place] [address] [place] [id number] [place] [address] 73301- 1772 18 Dec, 2016 Mood disorder F39 [place] [address] [place] [id number] [place] [address] 60318- 2399 13 Dec, 2016 [place] [address] [place] [id number] [place] [address] 02409- 4274 13 Dec, 2016 Generalized anxiety disorder F41.1 and Major depressive disorder, recurrent episode with anxious distress F33.9 [place] [address] [place] [address]- 3670 11 Dec, 2016 [facility] [id number] [place] [address] 21511- 5192 08 Dec, 2016 Streptococcal meningitis G00.2 [facility] [address] [place] [address] 70246- 2130 07 Dec, 2016 Streptococcal meningitis G00.2 [facility] [address] [place] [address] 90786- 7888 07 Dec, 2016 [facility] [address] [place] [address] 20854- 7966 06 Dec, 2016 [facility] [address] [place] [address] 84107- 0116 06 Dec, 2016 Streptococcal meningitis G00.2 [facility] [address] [place] [address] 73519- 2708 Dec, 2016 Major depressive disorder, recurrent episode with anxious distress F33.9 [facility] [address] [place] [address] 89113- 5032 Nov, Fever, unspecified fever cause R50.9 [facility] [address] [place] [address] 75043- 1854 24 Nov, 2016 [facility] [address] [place] [address] 83769- 0776 16 Nov, 2016 Hypothyroid E03.9 [facility] [address] [place] [address] 06720- 4230 Nov, Generalized anxiety disorder F41.1 and Major depressive disorder, recurrent episode with anxious distress F33.9 [facility] [address] [place] [address] 16134- 0957 Nov, [facility] [address] [id number] Oct, Dental examination Z01.20 [facility] [address] [place] [id number] [place] [address] 56715- 8814 Oct, Generalized anxiety disorder F41.1 and Major depressive disorder, recurrent episode with anxious distress F33.9 [place] [address] [place] [address] 99118- 8576 Oct, Chronic kidney disease, stage 4 (severe) N18.4 [place] [address] [place] [id number] [place] [address] 74519- 7649 Oct, [place] [address] [place] [id number] [place] [address] 26742- 2751 Oct, Fibromyalgia M79.7 [place] [address] [place] [id number] [place] [address] 58118- 9986 Oct, [place] [address] [place] [id number] [place] [address] 58840- 4183 Oct, Generalized anxiety disorder F41.1 ; Major depressive disorder, recurrent episode with anxious distress F33.9 and Bipolar disorder, current episode manic without psychotic features F31.10 [place] [address] [address]- 1437 Sep, [place] [address] [place] [id number] [place] [address] 54883- 4849 Sep, [place] [address] [place] [address] 44267- 9570 Sep, Vitamin D deficiency E55.9 [place] [address] [address]- 4182 Sep, Vitamin D deficiency E55.9 [place] [address] [place] [address] 85055- 2545 Sep, [place] [address] [place] [id number] [place] [address] 28317- 5987 Sep, Chronic kidney disease, stage 4 (severe) [...] examination Z12.39 and Low back pain M54.5 [place] [address] [place] [id number] [place] [address] 43237- 6564 August, Generalized anxiety disorder F41.1 and Major depressive disorder, recurrent episode with anxious distress F33.9 [place] [address] [place] [id number] [place] [address] 36350- 9772 August, Generalized anxiety disorder F41.1 and Major depressive disorder, recurrent episode with anxious distress F33.9 [place] [address] [place] [id number] [place] [address] 38154- 3868 August, Fibromyalgia M79.7 [place] [address] 61575- 8580 Jul, Generalized anxiety disorder F41.1 and Major depressive disorder, recurrent episode with anxious distress F33.9 [place] [address] [place] [id number] [place] [address] 09330- 3429 Jul, Fibromyalgia M79.7 [place] [address] [place] [id number] [place] [address] 15389- 0222 Jul, Generalized anxiety disorder F41.1 [place] [address] [place] [id number] [place] [address] 67365- 4707 May, [place] [address] [place] [id number] [place] [address] 52283- 0474 May, Hypothyroid E03.9 [place] [address] [place] [id number] [place] [address] 50420- 0077 May, Chronic kidney disease, stage 4 (severe) [...] of emmonak heart, angina presence unspecified I25.10 [facility] [address] [place] [id number] [place] [address] 63884- 9199 May, Vitamin D deficiency, unspecified E55.9 [place] [address] [place] [id number] [place] [address] 77384- 3575 May, Generalized anxiety disorder F41.1 and Major depressive disorder, recurrent episode with anxious distress F33.9 [place] [address] [place] [id number] [place] [address] 95456- 7234 Apr, Pain in right knee M25.561 and Pain in left knee M25.562 [place] [address] [place] [id number] [place] [address] 87338- 3267 Apr, [place] [address] [place] [id number] [place] [address] 82743- 7786 Apr, [facility] [address] [place] [address] 65796- 8132 Apr, [place] [address] [place] [id number] [place] [address] 33794- 4287 Mar, Generalized anxiety disorder F41.1 and Major depressive disorder, recurrent episode with anxious distress F33.9 [place] [address] [place] [address] 43422- 5004 Mar, Generalized anxiety disorder F41.1 and Major depressive disorder, recurrent episode with anxious distress F33.9 [place] [address] [place] [id number] [place] [address] 79931- 4214 Mar, [facility] [address] [place] [id number] [place] [address] 46520- 3484 Mar, [place] [address] [place] [id number] [place] [address] 56241- 1105 Mar, [place] [address] [place] [id number] [place] [address] 14042- 6881 Mar, Asthma J45.909 and Fibromyalgia M79.7 [place] [address] [place] [id number] [place] [address] 85174 2546 Mar, Chronic kidney disease, stage 4 (severe) N18.4 ; Vitamin D deficiency E55.9 and Essential (primary) hypertension I10 [place] [address] 96738- 6012 Feb, [place] [address] 91280- 4427 Feb, Dysuria R30.0 ; Mixed stress and urge urinary incontinence N39.46 ; Fibromyalgia M79.7 and Chronic kidney disease, stage IV (severe) N18.4 [place] [address] 41028- 4506 Feb, Chronic kidney disease, stage 4 (severe) N18.4 [place] [address] 75186- 8242 Feb, Chronic kidney disease, stage 4 (severe) N18.4 [place] [address] [place] [id number] [place] [address] 13753- 4996 Feb, [place] [address] [place] [id number] [place] [address] 62824- 2105 Feb, Vitamin D deficiency, unspecified E55.9 [place] [address] [place] [id number] [place] [address] 97362 2546 Jan, [place] [address] 33894 2546 Jan, [place] [address] [place] [id number] [place] [address] 92187 2546 Dec, [place] [address] [place] [id number] [place] [address] 51492 2548 Dec, Chronic kidney disease, stage 4 (severe) N18.4 [facility] [address] [place] [id number] [place] [address] 51230- 1761 28 Dec, 2015 Dysthymic disorder F34.1 and Generalized anxiety disorder F41.1 [facility] [address] [place] [id number] [place] [address] 94621- 7934 Dec, [facility] [address] [place] [id number] [place] [address] 46995- 0610 Dec, [facility] [address] [place] [id number] [place] [address] 26414- 6681 Dec, Dysthymic disorder F34.1 and Generalized anxiety disorder F41.1 [place] [address] [place] [id number] [place] [address] 83668- 7177 Dec, Dysuria R30.0 ; Chronic kidney disease, stage 4 (severe) N18.4 ; Hypertension I10 ; Dyspepsia R10.13 ; Yeast dermatitis B37.2 ; Palpitations R00.2 ; Hypothyroid E03.9 ; Functional diarrhea K59.1 and Other seasonal allergic rhinitis J30.2 [facility] [address] [place] [id number] [place] [address] 94306 -8641 Dec, [facility] [address] [place] [id number] [place] [address] 72653 -7998 Nov, Dysuria R30.0 and Stress incontinence N39.3 [facility] [address] [place] [id number] [place] [address] 02678- 9036 Nov, [facility] [address] [place] [id number] [place] [address] 16782- 4281 Nov, [facility] [address] [place] [id number] [place] [address] 14144- 2053 Nov, Osteoarthritis of knees, bilateral M17.0 [facility] [address] [place] [id number] [place] [address] 29795- 7631 Nov, Dysthymic disorder F34.1 and Generalized anxiety disorder F41.1 [facility] [address] [address]- 9499 Nov, [facility] [address] [place] [id number] [place] [address] 00496- 0994 Nov, [facility] [address] [place] [id number] [place] [address] 00534- 5618 Nov, Urgency of urination R39.15 [facility] [address] [place] [id number] [place] [address] 45091- 3674 Nov, [facility] [address] [place] [id number] [place] [address] 65323- 0118 Nov, Chronic kidney disease, stage 4 (severe) N18.4 [facility] [address] [place] [id number] [place] [address] 34984- 6863 Oct, Hypertension I10 ; Coronary artery disease involving emmonak coronary artery of emmonak heart, angina presence unspecified I25.10 ; Palpitations R00.2 ; Hypothyroid E03.9 ; Right foot pain M79.671 ; Functional diarrhea K59.1 and Other seasonal allergic rhinitis J30.2 [facility] [address] [place] [id number] [place] [address] 88515- 2005 Oct, Dysthymic disorder F34.1 and Generalized anxiety disorder F41.1 [facility] [address] [place] [address] 27730- 0532 Sep, [facility] [id number] [place] [address] 74313- 9133 Sep, [facility] [address] [place] [id number] [place] [address] [phone]- 50[address] Sep, [facility] [id number] [place] [address] 65799- 5685 Sep, [facility] [id number] [place] [address] 31483- 6847 Sep, [facility] [address] [place] [address] 27 Sep, 2015 Dysthymic disorder F34.1 and Generalized anxiety disorder F41.1 [place] [address] [address] 16 Sep, 2015 Asthma with acute exacerbation in adult J45.901 ; Dysuria R30.0 ; Chronic kidney disease, stage 4 (severe) N18.4 and History of anemia Z86.2 [place] [address] [address] 2015 Generalized anxiety disorder F41.1 and Dysthymic disorder F34.[address] [address] August, Screening breast examination Z12.39 and Acute recurrent maxillary sinusitis J01.[address] [address] August, Osteoarthritis of knees, bilateral M17.[address] [address] August, Chronic kidney disease, stage 4 (severe) N18.4 ; Acute non- recurrent maxillary sinusitis J01.00 ; Urinary problem R39.89 ; Bowel habit changes R19.4 ; Functional diarrhea K59.1 and History of colon polyps Z86.010 [place] [id number] [place] [address]- [address] Jul, Dysthymic disorder F34.1 and Generalized anxiety disorder F41.1 [place] [id number] [place] [address] 15574- 1681 Jul, [address] 48026- 2732 Jul, Dysthymic disorder F34.1 ; Generalized anxiety disorder F41.1 and 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.[address] 48186- 7514 Jul, [facility] [id number] [place] [address] 90871- 3798 Jun, [facility] [id number] [place] [address] 89975- 1432 Jun, [facility] [id number] [place] [address] 93024- 6578 May, [facility] [id number] [place] [address] 60075- 1965 May, Dysthymic disorder F34.1 and Generalized anxiety disorder F41.1 [facility] [id number] [place] [address] 37187- 9225 Apr, Kidney disease N28.9 [facility] [id number] [place] [address] 25591- 6248 Apr, Generalized anxiety disorder F41.1 and Dysthymic disorder F34.1 [facility] [place] [id number] [place] [address] 73878- 6466 Apr, Chronic kidney disease, stage 4 (severe) N18.4 [facility] [id number] [place] [address] 83615- 0188 Apr, Generalized anxiety disorder F41.1 ; Major depression, recurrent F33.9 and Sleep disturbance G47.9 [facility] [id number] [place] [address] 95165- 2595 Mar, Generalized anxiety disorder F41.1 and Dysthymic disorder F34.1 [facility] [place] [id number] [place] [address] 82162- 6240 Mar, Generalized anxiety disorder F41.1 ; Dysthymic disorder F34.1 and Insomnia G47.00 [place] [id number] [place] [address] 03094- 2031 Mar, [facility] [id number] [place] [address] 77840- 9210 Mar, [facility] [id number] [place] [address] 56166- 7254 Mar, Osteoarthritis of knees, bilateral M17.0 [place] [id number] [place] [address] 12630- 1729 Mar, Hypertension I10 ; Hypothyroid E03.9 ; Dysthymic disorder F34.1 ; Chronic kidney disease, stage 4 (severe) N18.4 and Nausea & vomiting R11.2 [place] [id number] [place] [address] 73526- 1959 Mar, Generalized anxiety disorder F41.1 ; Dysthymic disorder F34.1 and Insomnia G47.00 [place] [id number] [place] [address] 04537- 6113 Mar, Dehydration E86.0 ; Chronic kidney disease, stage 4 (severe ) N18.4 and Nausea & vomiting R11.2 [facility] [id number] [place] [address] 98683 -8509 Mar, Gastroenteritis K52.9 [place] [address] 84096- 6813 Mar, [facility] [id number] [place] [address] 70757- 8850 Mar, [facility] [id number] [place] [address] 08468- 5435 Feb, Dysthymic disorder F34.1 and Generalized anxiety disorder F41.1 [place] [id number] [place] [address] 37877- 5214 Jan, UTI (urinary tract infection) N39.0 ; Asthma J45.909 ; Coronary artery disease involving emmonak coronary artery of emmonak heart, angina presence unspecified I25.10 ; Hypertension I10 ; Hypothyroid E03.9 ; Vitamin D deficiency E55.9 ; Insomnia G47.00 ; Palpitations R00.2 ; Depressed F32.9 ; Restless leg G25.81 and Anxiety F41.9 [place] [id number] [place] [address] 36858- 9967 19 Jan, 2015 Dysthymic disorder F34.1 and Generalized anxiety disorder F41.1 [facility] [id number] [place] [address] 97867- 8727 Jan, [facility] [id number] [place] [address] 28344- 3762 Dec, [facility] [id number] [place] [address] 86046- 2692 28 Dec, 2014 Alkalosis 276.3 ; Chronic kidney disease, Stage IV (severe) 585.4 ; Hyperpotassemia 276.7 ; Secondary hyperparathyroidism, renal 588.81 ; Proteinuria 791.0 ; Unspecified vitamin D deficiency 268.9 ; Anemia in chronic kidney disease 285.21 ; Other and unspecified hyperlipidemia 272.4 ; Hypertension, essential, benign 401.1 and Chronic kidney disease (CKD), stage III (moderate) 585.3 [facility] [id number] [place] [address] 30951- 3082 Dec, [facility] [id number] [place] [address] 40015- 3256 16 Dec, 2014 Depressive disorder, not elsewhere classified 311 and Generalized anxiety disorder 300.02 [facility] [id number] [place] [address] 77118- 7003 10 Dec, 2014 [facility] [place] [id number] [place] [address] 76882- 9423 08 Dec, 2014 [facility] [place] [id number] [place] [address] 59725- 8073 Nov, Depressive disorder, not elsewhere classified 311 and Generalized anxiety disorder 300.02 [facility] [id number] [place] [address] 84354- 3690 Nov, Arthritis of both knees 716.96 [facility] [place] [id number] [place] [address] 74402- 3474 Nov, PAF (paroxysmal atrial fibrillation) 427.31 ; CAD (coronary artery disease) 414.00 ; Chest pain 786.50 and Chronic kidney disease (CKD) stage G4/A1, severely decreased glomerular filtration rate (GFR) between 15-29 mL/min/1.73 square meter and albuminuria creatinine ratio less than 30 mg/g 585.4 [facility] [place] [id number] [place] [address] 13990- 6979 Oct, Coronary atherosclerosis of unspecified type of vessel, emmonak or graft 414.00 ; Chronic kidney disease, Stage IV (severe) 585.4 ; Hypertension 401.9 and Edema 782.[address] 55678- 3578 Oct, Depressive disorder, not elsewhere classified 311 and Generalized anxiety disorder 300.[address] 58292- 3986 Oct, Depressive disorder, not elsewhere classified 311 and Generalized anxiety disorder 300.02 [place] [address] 67430- 6799 Oct, [address] 46084- 4794 Oct, [facility] [place] [id number] [place] [address] 26368- 3754 Sep, [place] [id number] [place] [address] 99572- 3651 Sep, Chronic kidney disease, Stage IV (severe) 585.4 [place] [id number] [place] [address] 64834- 6382 Sep, [address] 39301- 2139 Sep, Coronary atherosclerosis of unspecified type of vessel, emmonak or graft 414.00 ; Hypertension 401.9 ; Edema 782.3 and Hypothyroidism 244.[address] 72944- 6887 Sep, Coronary atherosclerosis of unspecified type of vessel, emmonak or graft 414.00 ; Hypertension 401.9 ; Fibromyalgia 729.1 ; Edema 782.3 ; Hypothyroidism 244.9 and Anemia 285.9 [facility] [id number] [place] [address] 27619- 1526 Sep, Anxiety disorder, unspecified 300.00 and Depressive disorder , not elsewhere classified 311 [facility] [address] 76326- 7863 Sep, [facility] [address] 60144- 6402 August, Generalized anxiety disorder 300.02 [facility] [address] 79479- 6573 August, Closed fracture of lateral malleolus 824.2 [facility] [address] 40341- 7925 Jul, [facility] [address] 84849- 9884 Jul, [facility] [id number] [place] [address] 72349- 0903 Jun, [facility] [id number] [place] [address] 33377- 4382 Jun, [facility] [id number] [place] [address] 86584- 6003 Jun, [facility] [id number] [place] [address] 06454- 3050 Jun, [facility] [address] 77745- 8364 Jun, [facility] [id number] [place] [address] 01509- 3977 Jun, [facility] [id number] [place] [address] 07046- 2387 May, [facility] [place] [facility] [address] [id number] [place] [address]- 4773 19 May, 2014 [facility] [place] [facility] [address] [id number] [place] [address]- 7646 18 May, 2014 [facility] [place] [facility] [address] [id number] [place] [address] 2546 18 May, 2014 [facility] [place] [facility] [address] [id number] [place] [address]- 6156 16 May, 2014 [facility] [place] [facility] [address] [id number] [place] [address]- 2084 16 May, 2014 [facility] [place] [facility] [address] [id number] [place] [address]- 2226 13 May, 2014 [facility] [place] [facility] [address] [id number] [place] [address]- 1931 13 May, 2014 [facility] [place] [facility] [address] [id number] [place] [address]- 9986 10 May, 2014 [facility] [place] [facility] [address] [id number] [place] [address]- 4445 10 May, 2014 [facility] [place] [facility] [address] [facility] [id number] [place] [address]- 8957 Apr, [facility] [place] [facility] [address] [id number] [place] [address]- 6542 Apr, [facility] [place] [facility] [address] [id number] [place] [address]- 8145 Mar, [facility] [place] [facility] [address] [id number] [place] [address] 2546 Mar, [facility] [place] [facility] [address] [id number] [place] [address]- 2546 Mar, [facility] [place] [facility] [address] [id number] [place] [address]- 2545 Mar, [facility] [place] [facility] [address] [id number] [place] [address]- 9386 15 Mar, 2014 [facility] [place] [facility] [address] [id number] [place] [address]- 8327 15 Mar, 2014 [facility] [place] [facility] [address] [id number] [place] [address]- 4281 Mar, [facility] [place] [facility] [address] [id number] [place] [address]- 8801 Feb, [facility] [place] [facility] [address] [id number] [place] [address]- 0127 Feb, [facility] [place] [facility] [address] [id number] [place] [address]- 9640 Feb, [facility] [place] [facility] [address] [id number] [place] [address]- 3278 Jan, [facility] [place] [facility] [address] [id number] [place] [address]- 6746 Jan, [facility] [place] [facility] [address] [id number] [place] [address]- 5081 Jan, [facility] [place] [facility] [address] [id number] [place] [address]- 3248 Jan, [facility] [place] [facility] [address] [id number] [place] [address]- 8047 Jan, [facility] [place] [facility] [address] [id number] [place] [address]- 2055 Jan, [facility] [place] [facility] [address] [id number] [address]- 6990 Jan, [facility] [place] [facility] [address] [id number] [address]- 4711 Jan, [facility] [place] [facility] [address] [id number] [place] [address]- 1720 Jan, [facility] [place] [facility] [address] [id number] [place] [address]- 8974 Jan, [facility] [place] [facility] [address] [id number] [place] [address]- 4070 Nov, [facility] [place] [facility] [address] [id number] [place] [address]- 6407 Nov, [facility] [place] [facility] [address] [id number] [place] [address]- 6374 Nov, [facility] [place] [facility] [address] [id number] [place] [address]- 3782 Oct, [facility] [place] [facility] [address] [id number] [place] [address]- 7863 Oct, [facility] [place] [facility] [address] [id number] [place] [address]- 0225 Oct, [facility] [place] [facility] [address] [id number] [place] [address]- 6431 Oct, [facility] [place] [facility] [address] [id number] [place] [address]- 5826 Oct, [facility] [place] [facility] [address] [id number] [place] [address]- 5065 Oct, [facility] [place] [facility] [address] [id number] [place] [address]- 2649 Oct, [facility] [place] [facility] [address] [id number] [place] [address]- 7162 Oct, [facility] [place] [facility] [address] [id number] [place] [address]- 9484 Oct, [facility] [place] [facility] [address] [id number] [place] [address]- 8159 Sep, [facility] [place] [facility] [address] [id number] [place] [address]- 5481 Sep, [facility] [place] [facility] [address] [id number] [place] [address]- 9559 Sep, [facility] [place] [facility] [address] [id number] [place] [address]- 8321 Sep, [facility] [place] [facility] [address] [id number] [place] [address]- 2218 Sep, [facility] [place] [facility] [address] [id number] [place] [address]- 6747 Sep, [facility] [place] [facility] [address] [id number] [place] [address]- 5332 Sep, [facility] [place] [facility] [address] [id number] [place] [address]- 2702 Sep, [facility] [place] [facility] [address] [id number] [place] [address]- 5607 Sep, [facility] [place] [facility] [address] [id number] [place] [address]- 7153 August, [facility] [place] [facility] [address] [id number] [place] [address]- 9295 August, [facility] [place] [facility] [address] [id number] [place] [address]- 1075 August, [facility] [place] [facility] [address] [id number] [place] [address]- 0988 August, [facility] [place] [facility] [address] [id number] [place] [address]- 6673 August, [facility] [place] [facility] [address] [id number] [place] [address]- 6096 August, [facility] [place] [facility] [address] [id number] [place] [address]- 7237 Jul, [facility] [place] [facility] [address] [id number] [place] [address]- 9162 Jul, [facility] [place] [facility] [address] [id number] [place] [address]- 5534 Jul, [facility] [place] [facility] [address] [id number] [place] [address]- 7154 Jul, [facility] [place] [facility] [address] [id number] [place] [address]- 3250 07 Jul, 2013 [facility] [place] [facility] [address] [id number] [place] [address]- 4866 Jul, [facility] [place] [facility] [address] [id number] [place] [address]- 5376 Jun, [facility] [place] [facility] [address] [id number] [place] [address]- 8747 Jun, [facility] [place] [facility] [address] [id number] [place] [address]- 7873 May, [facility] [place] [facility] [address] [id number] [place] [address]- 8906 May, [facility] [place] [facility] [address] [id number] [place] [address]- 6866 May, [facility] [place] [facility] [address] [facility] [id number] [place] [address]- 0663 May, [facility] [place] [facility] [address] [id number] [place] [address]- 0552 Apr, [facility] [place] [facility] [address] [id number] [place] [address]- 1369 Apr, [facility] [place] [facility] [address] [facility] [id number] [place] [address]- 2258 Mar, [facility] [place] [facility] [address] [id number] [place] [address]- 0604 18 Mar, 2013 [facility] [place] [facility] [address] [id number] [place] [address] 254 17 Mar, 2013 [facility] [place] [facility] [address] [id number] [place] [address]- 6616 Mar, [facility] [place] [facility] [address] [facility] [id number] [place] [address]- 0286 05 Mar, 2013 [facility] [place] [facility] [address] [facility] [id number] [place] [address]- 1325 Mar, [facility] [place] [facility] [address] [id number] [place] [address]- 5101 Feb, [facility] [place] [facility] [address] [id number] [place] [address]- 4964 Feb, [facility] [place] [facility] [address] [id number] [place] [address]- 9396 Feb, [facility] [place] [facility] [address] [id number] [place] [address]- 5773 Feb, [facility] [place] [facility] [address] [id number] [place] [address]- 5730 Feb, [facility] [place] [facility] [address] [id number] [place] [address]- 5500 Feb, [facility] [place] [facility] [address] [id number] [place] [address]- 8148 Jan, [facility] [place] [facility] [address] [id number] [place] [address]- 1424 Jan, [facility] [place] [facility] [address] [id number] [place] [address]- 8084 Jan, [facility] [place] [facility] [address] [id number] [place] [address]- 1754 Jan, [facility] [place] [facility] [address] [id number] [place] [address]- 3773 Jan, [facility] [place] [facility] [address] [id number] [place] [address]- 3382 Jan, [facility] [place] [facility] [address] [id number] [place] [address]- 6063 12 Dec, 2012 [facility] [place] [facility] [address] [id number] [place] [address]- 0881 09 Dec, 2012 [facility] [place] [facility] [address] [id number] [place] [address]- 5648 16 Nov, 2012 [facility] [place] [facility] [address] [id number] [place] [address]- 9377 Nov, [facility] [address] [id number] [place] [address]- 4117 Oct, [facility] [place] [facility] [address] [id number] [place] [address]- 5219 Oct, [facility] [address] [id number] [place] [address]- 1296 Oct, [facility] [address] [id number] [place] [address]- 1079 Oct, [facility] [address] [id number] [place] [address]- 7027 Oct, [facility] [address] [id number] [place] [address]- 1584 Oct, [facility] [address] [id number] [place] [address]- 0579 Sep, [facility] [address] [id number] [place] [address]- 2887 Sep, [facility] [address] [id number] [place] [address]- 9441 Sep, [facility] [address] [id number] [place] [address]- 2925 Sep, [facility] [address] [id number] [place] [address]- 7948 August, [facility] [place] [facility] [address] [id number] [place] [address]- 7293 August, [facility] [place] [facility] [address] [id number] [place] [address]- 8539 August, [facility] [place] [facility] [address] [id number] [place] [address]- 5770 August, [facility] [place] [facility] [address] [id number] [place] [address]- 4915 August, [facility] [address] [id number] [place] [address]- 0216 Jul, [facility] [address] [id number] [place] [address]- 8562 Jul, [facility] [address] [id number] [place] [address]- 7663 Jul, [facility] [address] [id number] [place] [address]- 4933 Jul, [facility] [address] [id number] [place] [address]- 9576 Jul, [facility] [address] [id number] [place] [address]- 1236 Jul, [facility] [address] [id number] [place] 6939 Jul, [facility] [address] [id number] [place] [address]- 6449 Jul, [facility] [address] [id number] [place] [address]- 6622 Jul, [facility] [place] [facility] [address] [id number] [place] [address]- 4923 Jul, [facility] [address] [id number] [id number] Jun, [facility] [address] [id number] [place] [address]- 5324 Jun, [facility] [address] [id number] [place] [address]- 0325 Jun, [facility] [place] [facility] [address] [id number] [place] [address]- 9951 Jun, [facility] [place] [facility] [address] [id number] [place] [address] Jun, [facility] [address] [id number] [place] [address] May, [facility] [address] [id number] [place] [address] May, [facility] [place] [facility] [address] [id number] [place] [address] May, [facility] [address] [id number] [place] [address] Apr, [facility] [place] [facility] [address] [id number] [place] [address] Apr, [facility] [address] [id number] [place] [address] Apr, [facility] [place] [facility] [address] [id number] [place] [address] Apr, [facility] [address] [facility] [id number] [place] [address] Apr, [facility] [address] [id number] [place] [address] Apr, [facility] [address] [id number] [place] [address] Mar, [facility] [place] [facility] [address] [id number] [place] [address] Mar, [facility] [place] [facility] [address] [id number] [address] Mar, [facility] [place] [facility] [address] [id number] [place] [address] Mar, [facility] [place] [facility] [address] [id number] [place] [address] Feb, [facility] [place] [facility] [address] [id number] [place] [address] Feb, [facility] [place] [facility] [address] [facility] [id number] [place] [address] Feb, [facility] [place] [facility] [address] [id number] [place] [address] 93[address] Feb, [facility] [place] [facility] [address] [id number] [place] [address] Feb, [facility] [place] [facility] [address] [id number] [place] [address] Feb, [facility] [place] [facility] [address] [id number] [place] [address] Feb, [facility] [place] [facility] [address] [id number] [place] [address] Feb, [facility] [place] [facility] [address] [id number] [place] [address] Feb, [facility] [place] [facility] [address] [id number] [place] [address]- [address] Feb, [facility] [place] [facility] [address] [id number] [place] [address]99 Feb, [facility] [place] [facility] [address] [id number] [place] [address] Feb, [facility] [place] [facility] [address] [id number] [place] [address]- [address] Feb, [facility] [place] [facility] [address] [facility] [id number] [place] [address] Feb, [facility] [place] [facility] [address] [id number] [place] [address] Feb, [facility] [place] [facility] [address] [id number] [place] [address] Feb, [facility] [place] [facility] [address] [id number] [place] [address] Jan, [facility] [place] [facility] [address] [id number] [place] [address] Jan, [facility] [place] [facility] [address] [id number] [place] [address] Jan, [facility] [place] [facility] [address] [id number] [place] [address] 31 Jan, 2012 [facility] [place] [facility] [address] [id number] [place] [address]- [address] 30 Jan, 2012 [facility] [place] [facility] [address] [id number] [place] [address]- [address] Jan, [facility] [place] [facility] [address] [id number] [place] [address]- [address]69 25 Jan, 2012 [facility] [place] [facility] [address] [id number] [place] [address]- [address] 16 Jan, 2012 [facility] [place] [facility] [address] [id number] [place] [address]- [address]65 16 Jan, 2012 [facility] [place] [facility] [address] [id number] [place] [address] 15 Jan, 2012 [facility] [place] [facility] [address] [id number] [place] [address]- [address] 15 Jan, 2012 [facility] [place] [facility] [address] [id number] [place] [address]- [address] Jan, [facility] [place] [facility] [address] [id number] [place] [address]- [address]64 26 Dec, 2011 [facility] [place] [facility] [address] [id number] [place] [address]- [address] 26 Sep2011 [facility] [place] [facility] [address] [id number] [place] [address]- 4052 24 Sep2011 [facility] [place] [facility] [address] [id number] [place] [address]- 5587 23 Sep2011 [facility] [place] [facility] [address] [id number] [place] [address]- 2545 22 Sep2011 [facility] [place] [facility] [address] [id number] [place] [address]- 5294 21 Sep2011 [facility] [place] [facility] [address] [id number] [place] [address]- [address]73 20 Dec, 2011 [facility] [place] [facility] [address] [id number] [place] [address]- [address] 20 Dec, 2011 [facility] [place] [facility] [address] [id number] [place] [address]- [address] 07 Dec, 2011 [facility] [place] [facility] [address] [id number] [place] [address]- [address] 06 Dec, 2011 [facility] [facility] [address] [id number] [place] [address] 06 Dec, 2011 [facility] [place] [facility] [address] [id number] [place] [address] 05 Dec, 2011 [facility] [place] [facility] [address] [id number] [place] [address] 23 Nov, 2011 [facility] [place] [facility] [address] [id number] [place] [address] 17 Nov, 2011 [facility] [place] [facility] [address] [id number] [place] [address] 13 Nov, 2011 [facility] [place] [facility] [address] [id number] [place] [address] Nov, [facility] [place] [facility] [address] [id number] [place] [address] Nov, [facility] [place] [facility] [address] [id number] [place] [address] Nov, [facility] [place] [facility] [address] [id number] [place] [address] Nov, [facility] [place] [facility] [address] [id number] [place] [address] Nov, [facility] [place] [facility] [address] [id number] [place] [address] Oct, [facility] [place] [facility] [address] [id number] [place] [address] Oct, [facility] [place] [facility] [address] [id number] [place] [address] Oct, [facility] [address] [id number] [place] [address] Oct, [facility] [address] [id number] [place] [address] Oct, [facility] [address] [id number] [place] [address] Oct, [facility] [address] [id number] [place] [address] Oct, [facility] [address] [id number] [place] [address] Sep, [facility] [address] [id number] [place] [address]- [address] Sep, [facility] [address] [id number] [place] [address] August, [facility] [address] [id number] [place] [address] August, [facility] [address] [id number] [place] [address] August, [facility] [address] [id number] [place] [address] August, [facility] [address] [id number] [place] [address] Jul, [facility] [address] [id number] [place] [address] 8468 Jul, [facility] [address] [id number] [place] [address]- [address] Jul, [facility] [address] [id number] [place] [address] Jul, [facility] [address] [id number] [place] [address] Jul, [facility] [address] [id number] [place] [address]- [address] Jul, [facility] [address] [id number] [place] [address] Jul, [facility] [address] [id number] [place] [address] 3566 Jul, [facility] [address] [id number] [place] [address] 2066 Jul, [facility] [address] [id number] [place] [address] Jun, [facility] [address] [id number] [place] [address] Jun, [facility] [address] [id number] [place] [address]- [address] 15 Jun, 2011 [facility] [address] [id number] [place] [address]- [address] 14 Jun, 2011 [facility] [address] [id number] [place] [address] 9693 Jun, [facility] [address] [id number] [place] [address] Jun, [facility] [address] [id number] [place] [address]- 0916 Jun, [facility] [address] [id number] [place] [address] May, [facility] [address] [id number] [place] [address]- [address]68 24 May, 2011 [facility] [address] [id number] [place] [address] May, [facility] [address] [id number] [place] [address]- [address] May, [facility] [address] [id number] [place] [address]- [address] 03 May, 2011 [facility] [address] [id number] [place] [address]- [address]36 Apr, [facility] [address] [id number] [place] [address]696 Apr, [facility] [address] [id number] [place] [address]- 2846 Apr, [facility] [address] [id number] [place] [address]- 8714 Apr, [facility] [address] [id number] [place] [address]- [address]326 Apr, [facility] [address] [id number] [place] [address] Mar, [facility] [address] [id number] [place] [address]- [address]186 Mar, [facility] [address] [id number] [place] [address]- 9258 Mar, [facility] [address] [id number] [place] [address]- [address] Mar, [facility] [address] [facility] [id number] [place] [address] Mar, [facility] [address] [id number] [place] [address]- [address]256 Mar, [facility] [address] [id number] [place] [address]- 2546 Mar, [facility] [address] [id number] [place] [address]- [address]471 Feb, [facility] [address] [id number] [place] [address]486 Feb, [facility] [address] [id number] [place] [address] 1188 Feb, [facility] [address] [id number] [place] [address]- 0193 Feb, [facility] [address] [id number] [place] [address] 8360 Jan, [facility] [address] [id number] [place] [address]- 7565 Jan, [facility] [address] [id number] [place] [address]- 6068 Jan, [facility] [address] [id number] [place] [address]- 4[address] Jan, [facility] [address] [id number] [place] [address]- [address]45 Nov, [facility] [address] [id number] [place] [address]15 Mar, [facility] [address] [id number] [place] [address]- 8017 Mar, [facility] [address] [id number] [place] [address]- [address]20 Mar, [facility] [address] [id number] [place] [address]- 8492 Mar, [facility] [address] [id number] [place] [address]- 3767 Mar, [facility] [address] [id number] [place] [address]- 4521 Mar, [facility] [address] [id number] [place] [address]- 3448 Feb, [facility] [address] [id number] [place] [address]- 3047 Feb, [facility] [address] [id number] [place] [address]- [address] Jan, [facility] [address] [id number] [place] [address]- [address] Jan, [facility] [address] [facility] [id number] [place] [address]- [address] Jan, IMMUNIZATIONS No Known Immunizations SOCIAL HISTORY [...] History Bladder surgery [facility] 03/2016 Hospitalization History Surgeries Only Hospitalization History 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
--- OUTSIDE RECORDS SUMMARY | 2018-05-29 09:05 | XMS REPORT ---
Author Author JORDAN MCDONALD [facility] Address [address] [place] [address] Care Team Providers Care Oil Sprayer Name Role Phone JORDAN MCDONALD Unavailable PROBLEMS Type Condition ICD9-CM Code WPN22-MD Code Onset Dates Condition Status SNOMED Code Problem Long-term use of high-risk medication Z79.899 Active 552068060 Problem Abnormal chest CT R93.8 Active 923563790 Problem Low back pain M54.5 Active 456104336 Problem Generalized anxiety disorder F41.1 Active 72413612 Problem Dysthymic disorder F34.1 Active 56121181 Problem Coronary artery disease involving little traverse coronary artery of little traverse heart, angina presence unspecified I25.10 Active 9674312308411 Problem Depressed F32.9 Active 65135609 Problem Fibromyalgia M79.7 Active 323398698 Problem Hypothyroid E03.9 Active 88161357 Problem Essential (primary) hypertension I10 Active 19805941 Problem Insomnia G47.00 Active 685235680 Problem Vitamin D deficiency E55.9 Active 58357006 Problem Anemia in chronic kidney disease D63.1 Active 745696087559952 Problem Chronic kidney disease, unspecified N18.9 Active 427050317 Problem Body mass index (BMI) of 40.0-44.9 in adult Z68.41 Active 421169623 Problem Stage 3 chronic kidney disease N18.3 Active 178692653 Problem Restless leg G25.81 Active 92806016 Problem Palpitations R00.2 Active 57080361 Problem Asthma J45.909 Active 034445488 Problem Primary osteoarthritis of left knee M17.12 Active 745022831 Problem Bipolar disorder, current episode manic without psychotic features F31.10 Active 315848232 Problem Mood disorder F39 Active 18420438 Problem Degenerative tear of medial meniscus of left knee M23.204 Active 358004345 Problem History of colon polyps Z86.010 Active 263716337 Problem Asthma with acute exacerbation in adult J45.901 Active 976513745 Problem Chronic kidney disease, stage 4 (severe) N18.4 Active 242700927 Problem Functional diarrhea K59.1 Active 21672079 Problem Hypokalemia E87.6 Active 46416548 Problem Mixed stress and urge urinary incontinence N39.46 Active 950690120 Problem History of anemia Z86.2 Active 559043605 Problem Other seasonal allergic rhinitis J30.2 Active 478287762 ALLERGIES No Information ENCOUNTERS Encounter Location Date Diagnosis [place] [address] [address] Oct, [place] [address] 41152- 7721 Sep, [place] [address] 06333- 8711 August, Fibromyalgia M79.7 [place] [address] 17974- 6159 August, [place] [address] 43748- 8689 August, [place] [address] 56647- 5411 August, Abnormal chest CT R93.8 [place] [address] 07514- 6548 August, Generalized anxiety disorder F41.1 and Major depressive disorder, recurrent episode with anxious distress F33.9 [place] [address] [place] [id number] [place] [address] 06354- 7534 August, Ab[address] chest [address] R93.8 [place] [address] 97417- 6723 Jul, [facility] [address] 88112- 2431 Jul, Chronic kidney disease, stage 4 (severe) N18.4 [facility] [address] 57099- 6715 Jul, [facility] [id number] [place] [address] 66616- 3731 Jul, Restless leg G25.81 ; Mixed stress and urge urinary incontinence N39.46 and Fibromyalgia M79.7 [facility] [address] [place] [id number] [place] [address] 91770- 7949 Jul, Chronic kidney disease, stage 4 (severe) N18.4 [facility] [address] [place] [id number] [place] [address] 42420- 8007 Jun, Orthostatic hypotension I95.1 ; Chronic kidney disease, stage 4 (severe) N18.4 ; Chest wall discomfort R07.89 and Body mass index (BMI) of 40.0-44.9 in adult Z68.41 [place] [address] [place] [id number] [place] [address] 12984- 0942 Jun, [facility] [address] [place] [id number] [place] [address] 64780- 1120 Jun, Orthostatic hypotension I95.1 [facility] [address] [place] [id number] [place] [address] 43949- 6900 Jun, [facility] [address] [place] [id number] [place] [address] 05671 -8386 Jun, Orthostatic hypotension I95.1 ; Dysuria R30.0 and Acute cystitis without hematuria N30.00 [facility] [address] [place] [id number] [place] [address] 61228- 8032 Jun, [facility] [address] [place] [id number] [place] [address] 71135- 2014 Jun, Chronic kidney disease, stage 4 (severe) N18.4 [facility] [address] [place] [id number] [place] [address] 97795- 9853 Jun, Fibromyalgia M79.7 [facility] [address] [place] [id number] [place] [address] 13390- 3600 Jun, [place] [address] [address] 5238 Jun, [facility] [id number] [place] [address] 64647- [address]26 May, [address] R93.8 and Stage 3 chronic kidney disease N18.3 [facility] [id number] [place] [address] 99235- 9266 May, Chronic kidney disease, stage 4 (severe) N18.4 [facility] [address] [place] [address] 19455 2540 May, Chronic kidney disease, stage 4 (severe) N18.4 [facility] [address] [place] [address] 97720- 6318 May, Ab[address] chest [address] R93.8 [facility] [address] [place] [address] 81085- 4877 May, [facility] [id number] [place] [address] 44202- 3495 May, [facility] [id number] [place] [address] 76096- 9192 May, Generalized anxiety disorder F41.1 and Major depressive disorder, recurrent episode with anxious distress F33.9 [facility] [address] [address]- 3684 May, Mood disorder F39 [facility] [address] [address]- 1525 Apr, [facility] [address] [place] [address] 79682- 4224 Apr, Infected skin lesion L08.9 and Muscle strain of right shoulder region, initial encounter S46.911A [facility] [address] [address]- 2852 Apr, Generalized anxiety disorder F41.1 and Major depressive disorder, recurrent episode with anxious distress F33.9 [facility] [address] [address]- 1304 Apr, [facility] [address] [place] [address] 02429- 5001 Apr, Recent urinary tract infection Z87.440 and Hypothyroid E03.9 [place] [address] [place] [id number] [place] [address] 09051- 3174 Apr, Generalized anxiety disorder F41.1 and Major depressive disorder, recurrent episode with anxious distress F33.9 [place] [address] [place] [address] 95049- 5548 Apr, Recent urinary tract infection Z87.440 [place] [address] [place] [address] 86895- 8545 Mar, [facility] [address] [place] [id number] [place] [address] 26619 -4170 Mar, Dysuria R30.0 ; Acute cystitis without hematuria N30.00 and BMI 40.0-44.9, adult Z68.41 [place] [address] [place] [address] 42306- 0079 Mar, [place] [id number] [place] [address] 37881- 3417 Mar, [place] [address] [place] [address] 36305- 7001 Mar, Generalized anxiety disorder F41.1 and Major depressive disorder, recurrent episode with anxious distress F33.9 [place] [address] [place] [address] 06384- 0113 Feb, Conjunctivitis, bacterial H10.9 [place] [address] [place] [address] 69221- 0945 Feb, [facility] [id number] [place] [address] 11694 -2578 Feb, Conjunctivitis, bacterial H10.9 [facility] [address] [address]- 3003 Feb, [facility] [address] [place] [id number] [place] [address] 15136 -4336 Feb, Dysuria R30.0 ; Acute cystitis N30.00 and BMI 40.0-44.9, adult Z68.41 [facility] [address] [place] [id number] [place] [address] 72066- 3956 Feb, [facility] [address] [place] [id number] [place] [address] 53305- 8250 Feb, Generalized anxiety disorder F41.1 and Major depressive disorder, recurrent episode with anxious distress F33.9 [place] [address] [place] [id number] [place] [address] 87726- 4419 Feb, Mood disorder F39 and BMI 40.0-44.9, adult Z68.41 [facility] [address] [place] [id number] [place] [address] 63286- 4811 Jan, [place] [address] [place] [id number] [place] [address] 27801- 7669 Jan, [facility] [address] [place] [id number] [place] [address] 85338- 5474 Jan, Hypothyroid E03.9 [facility] [address] [place] [id number] [place] [address] 82604- 9219 Jan, [facility] [address] [place] [id number] [place] [address] 23733- 5801 Jan, Chronic kidney disease, unspecified N18.9 ; Hypokalemia E87.6 ; Essential (primary) hypertension I10 ; Fibromyalgia M79.7 ; Coronary artery disease involving little traverse coronary artery of little traverse heart, angina presence unspecified I25.10 ; Hypothyroid E03.9 and Encounter for immunization Z23 [facility] [address] [place] [id number] [place] [address] 71262- 2893 Jan, Hypothyroid E03.9 [facility] [address] [address]- 4932 02 Jan, 2017 [facility] [address] [place] [id number] [place] [address] 80349- 0691 28 Dec, 2016 Vitamin D deficiency E55.9 [facility] [address] [place] [id number] [place] [address] 50969- 6330 28 Dec, 2016 Primary osteoarthritis of left knee M17.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 [facility] [address] [place] [id number] [place] [address] 82527- 1823 19 Dec, 2016 Fibromyalgia M79.7 [facility] [address] [place] [id number] [place] [address] 56333- 4347 18 Dec, 2016 Mood disorder F39 [place] [address] [place] [id number] [place] [address] 55696- 6062 13 Dec, 2016 [facility] [address] [place] [id number] [place] [address] 14927- 4947 13 Dec, 2016 Generalized anxiety disorder F41.1 and Major depressive disorder, recurrent episode with anxious distress F33.9 [place] [id number] [place] [address] 51173- 8354 11 Dec, 2016 [place] [id number] [place] [address] 52476- 6944 08 Dec, 2016 Streptococcal meningitis G00.2 [facility] [id number] [place] [address] 20617- 8016 07 Dec, 2016 Streptococcal meningitis G00.2 [facility] [id number] [place] [address] 46064- 1292 07 Dec, 2016 [facility] [address] [place] [id number] [place] [address] 09112- 2548 06 Dec, 2016 Streptococcal meningitis G00.2 [facility] [id number] [place] [address] 14293- 7575 Dec, [facility] [id number] [place] [address] 63482- 8377 Dec, Major depressive disorder, recurrent episode with anxious distress F33.9 [facility] [address] [place] [id number] [place] [address] 11092- 9340 Nov, Fever, unspecified fever cause R50.9 [facility] [address] [place] [id number] [place] [address] 78410- 1995 Nov, [facility] [address] 31013- 5250 Nov, Hypothyroid E03.9 [facility] [address] 37626- 4325 Nov, Generalized anxiety disorder F41.1 and Major depressive disorder, recurrent episode with anxious distress F33.9 [place] [address] 21532- 0385 Nov, [facility] [address] [place] [id number] [place] [address] [id number] Oct, Dental examination Z01.20 [facility] [address] 55038- 1376 Oct, Generalized anxiety disorder F41.1 and Major depressive disorder, recurrent episode with anxious distress F33.9 [facility] [address] [place] [id number] [place] [address] 29630- 4107 Oct, Chronic kidney disease, stage 4 (severe) N18.4 [facility] [address] [place] [id number] [place] [address] 95413- 2065 Oct, [facility] [address] 23335- 4119 Oct, Fibromyalgia M79.7 [facility] [address] [place] [id number] [place] [address] 41907- 7418 Oct, [facility] [address] 38451- 0444 Oct, Generalized anxiety disorder F41.1 ; Major depressive disorder, recurrent episode with anxious distress F33.9 and Bipolar disorder, current episode manic without psychotic features F31.10 [place] [id number] [place] [address] 09651- 4869 Sep, [place] [address] [place] [id number] [place] [address] 11258- 5807 Sep, [place] [address] [place] [id number] [place] [address] 12314- 4962 Sep, Vitamin D deficiency E55.9 [place] [address] [place] [id number] [place] [address] 02160- 1534 Sep, Vitamin D deficiency E55.9 [place] [address] [place] [id number] [place] [address] 49964- 0473 Sep, [place] [address] [place] [id number] [place] [address] 11082- 4637 Sep, Chronic kidney disease, stage 4 (severe) N18.4 ; Hypothyroid E03.9 ; Restless leg G25.81 ; Fibromyalgia M79.7 ; Essential ( primary) hypertension I10 ; Vitamin D deficiency E55.9 ; Dyspepsia R10.13 ; Anemia in chronic kidney disease D63.1 ; Chronic kidney disease, unspecified N18.9 ; Coronary artery disease involving little traverse coronary artery of little traverse heart , angina presence unspecified I25.10 ; Screening breast examination Z12.39 and Low back pain M54.5 [place] [id number] [place] [address] 08292- 5417 August, Generalized anxiety disorder F41.1 and Major depressive disorder, recurrent episode with anxious distress F33.9 [place] [address] [place] [id number] [place] [address] 01222- 4001 August, Generalized anxiety disorder F41.1 and Major depressive disorder, recurrent episode with anxious distress F33.9 [place] [address] [place] [id number] [place] [address] 68196- 2893 August, Fibromyalgia M79.7 [place] [address] [place] [address] 76642- 2151 Jul, Generalized anxiety disorder F41.1 and Major depressive disorder, recurrent episode with anxious distress F33.9 [place] [address] [place] [address] 07748- 6329 Jul, Fibromyalgia M79.7 [place] [address] [place] [id number] [place] [address] 29196- 0991 Jul, Generalized anxiety disorder F41.1 [place] [address] [place] [id number] [place] [address] 77861- 6959 May, [place] [address] [place] [id number] [place] [address] 36319- 4106 May, Hypothyroid E03.9 [place] [address] [place] [id number] [place] [address] 34495- 6243 May, Chronic kidney disease, stage 4 (severe) N18.4 ; Hypothyroid E03.9 ; Restless leg G25.81 ; Fibromyalgia M79.7 ; Essential ( primary) hypertension I10 ; Vitamin D deficiency E55.9 ; Dyspepsia R10.13 ; Acute non-recurrent maxillary sinusitis J01.00 ; Anemia in chronic kidney disease D63.1 ; Chronic kidney disease, unspecified N18.9 and Coronary artery disease involving little traverse coronary artery of little traverse heart, angina presence unspecified I25.10 [place] [address] [place] [address] 41396- 5146 May, Vitamin D deficiency, unspecified E55.9 [place] [address] [place] [address] 26560- 5251 May, Generalized anxiety disorder F41.1 and Major depressive disorder, recurrent episode with anxious distress F33.9 [place] [address] [place] [address] 18271- 2167 Apr, Pain in right knee M25.561 and Pain in left knee M25.562 [facility] [address] [place] [address] 65905- 7981 Apr, [facility] [address] [place] [id number] [place] [address] 12406- 0180 Apr, [facility] [address] [place] [id number] [place] [address] 28261- 3140 Apr, [facility] [address] [place] [id number] [place] [address] 70276- 1871 Mar, Generalized anxiety disorder F41.1 and Major depressive disorder, recurrent episode with anxious distress F33.9 [place] [address] [place] [id number] [place] [address] 83314- 9769 Mar, Generalized anxiety disorder F41.1 and Major depressive disorder, recurrent episode with anxious distress F33.9 [place] [address] [place] [id number] [place] [address] 81222- 0930 Mar, [place] [address] [place] [id number] [place] [address] 81910- 4354 Mar, [place] [address] [place] [id number] [place] [address] 00751- 6606 Mar, [place] [address] [place] [id number] [place] [address] 01806- 3670 Mar, Asthma J45.909 and Fibromyalgia M79.7 [place] [address] [place] [id number] [place] [address] 98718- 3662 Mar, Chronic kidney disease, stage 4 (severe) N18.4 ; Vitamin D deficiency E55.9 and Essential (primary) hypertension I10 [place] [address] [place] [id number] [place] [address] 20795- 1116 Feb, [place] [address] [place] [id number] [place] [address] 45635- 9218 Feb, Dysuria R30.0 ; Mixed stress and urge urinary incontinence N39.46 ; Fibromyalgia M79.7 and Chronic kidney disease, stage IV (severe) N18.4 [facility] [address] [place] [address] 88178 2546 Feb, Chronic kidney disease, stage 4 (severe) N18.4 [facility] [address] [place] [id number] [place] [address] 92535 2546 Feb, Chronic kidney disease, stage 4 (severe) N18.4 [facility] [address] [place] [id number] [place] [address] 39857 2546 Feb, [facility] [address] [place] [id number] [place] [address] 55451 254 Feb, Vitamin D deficiency, unspecified E55.9 [facility] [address] [place] [id number] [place] [address] 38017 2546 Jan, [facility] [address] [place] [id number] [place] [address] 41221- 8226 Jan, [facility] [address] [id number] [place] [address] 91835 2543 30 Dec, 2015 [facility] [address] [place] [id number] [place] [address] 45186 2547 Dec, Chronic kidney disease, stage 4 (severe) N18.4 [facility] [address] [place] [id number] [place] [address] 31189 2546 Dec, Dysthymic disorder F34.1 and Generalized anxiety disorder F41.1 [facility] [address] [place] [address] 62716 2546 27 Dec, 2015 [facility] [address] [place] [address] 81876 2546 26 Dec, 2015 [facility] [address] [id number] [place] [address] 62257 2546 08 Dec, 2015 Dysthymic disorder F34.1 and Generalized anxiety disorder F41.1 [facility] [address] [id number] [place] [address] 158721- 1353 Dec, Dysuria R30.0 ; Chronic kidney disease, stage 4 (severe) N18.4 ; Hypertension I10 ; Dyspepsia R10.13 ; Yeast dermatitis B37.2 ; Palpitations R00.2 ; Hypothyroid E03.9 ; Functional diarrhea K59.1 and Other seasonal allergic rhinitis J30.2 [facility] [address] 98095 -9937 Dec, [facility] [address] 71360 -0021 Nov, Dysuria R30.0 and Stress incontinence N39.3 [place] [address] 25707- 5859 Nov, [place] [address] 03629- 3312 Nov, [place] [address] 52224- 1381 Nov, Osteoarthritis of knees, bilateral M17.0 [place] [address] 68713- 1711 Nov, Dysthymic disorder F34.1 and Generalized anxiety disorder F41.1 [place] [address] 62330- 9387 Nov, [place] [address] 97284- 5131 Nov, [place] [address] 99088- 0911 Nov, Urgency of urination R39.15 [place] [address] 57810- 8982 Nov, [place] [address] 69584- 5456 Nov, Chronic kidney disease, stage 4 (severe) N18.4 [place] [address] [place] [address]- 3745 Oct, Hypertension I10 ; Coronary artery disease involving little traverse coronary artery of little traverse heart, angina presence unspecified I25.10 ; Palpitations R00.2 ; Hypothyroid E03.9 ; Right foot pain M79.671 ; Functional diarrhea K59.1 and Other seasonal allergic rhinitis J30.2 [facility] [address] 64116- 2997 Oct, Dysthymic disorder F34.1 and Generalized anxiety disorder F41.1 [place] [address] 11164- 1986 Sep, [facility] [address] 36765- 5091 Sep, [facility] [address] 68252- 4980 Sep, [facility] [address] 30415- 4737 Sep, [facility] [address] 14344- 6924 Sep, [place] [address] 17839- 4558 Sep, Dysthymic disorder F34.1 and Generalized anxiety disorder F41.1 [place] [address] 09241- 8478 16 Sep, 2015 Asthma with acute exacerbation in adult J45.901 ; Dysuria R30.0 ; Chronic kidney disease, stage 4 (severe) N18.4 and History of anemia Z86.2 [facility] [address] 96670- 5367 Sep, Generalized anxiety disorder F41.1 and Dysthymic disorder F34.1 [facility] [address] 53215- 5647 August, Screening breast examination Z12.39 and Acute recurrent maxillary sinusitis J01.01 [facility] [id number] [place] [address] 16748- 8748 12 Aug, 2015 Osteoarthritis of knees, bilateral M17.0 [facility] [id number] [place] [address] 03256- 2288 11 Aug, 2015 Chronic kidney disease, stage 4 (severe) N18.4 ; Acute non- recurrent maxillary sinusitis J01.00 ; Urinary problem R39.89 ; Bowel habit changes R19.4 ; Functional diarrhea K59.1 and History of colon polyps Z86.010 [place] [id number] [place] [address] 45409- 4743 Jul, Dysthymic disorder F34.1 and Generalized anxiety disorder F41.1 [place] [id number] [place] [phone] Jul, [place] [address] [phone] Jul, Dysthymic disorder F34.1 ; Generalized anxiety disorder F41.1 and regional [employer] use of drug Z79.899 [place] [address] [phone] Jul, [place] [id number] [place] [id number] Jun, [place] [id number] [place] [phone] Jun, [facility] [id number] [place] [phone] May, [place] [id number] [place] [address] 43983- 3064 May, Dysthymic disorder F34.1 and Generalized anxiety disorder F41.1 [place] [id number] [place] [address] 34587- 3623 Apr, Kidney disease N28.9 [place] [id number] [place] [address] 3922 Apr, Generalized anxiety disorder F41.1 and Dysthymic disorder F34.1 [place] [address] 72137- 4624 Apr, Chronic kidney disease, stage 4 (severe) N18.4 [place] [address] 88764- 8132 Apr, Generalized anxiety disorder F41.1 ; Major depression, recurrent F33.9 and Sleep disturbance G47.9 [place] [address] 91509- 6969 Mar, Generalized anxiety disorder F41.1 and Dysthymic disorder F34.1 [place] [address] 80377- 4074 Mar, Generalized anxiety disorder F41.1 ; Dysthymic disorder F34.1 and Insomnia G47.00 [place] [address] 25871- 5812 Mar, [place] [address] 78680- 6677 Mar, [place] [address] 13279- 4165 Mar, Osteoarthritis of knees, bilateral M17.[address] 46772- 7085 Mar, Hypertension I10 ; Hypothyroid E03.9 ; Dysthymic disorder F34.1 ; Chronic kidney disease, stage 4 (severe) N18.4 and Nausea & vomiting R11.2 [place] [address] 19109- 6084 Mar, Generalized anxiety disorder F41.1 ; Dysthymic disorder F34.1 and Insomnia G47.00 [place] [address] 76906- 5087 Mar, Dehydration E86.0 ; Chronic kidney disease, stage 4 (severe ) N18.4 and Nausea & vomiting R11.2 [facility] [id number] [place] [address] 91179 -9131 Mar, Gastroenteritis K52.9 [facility] [id number] [place] [address] 06027- 3624 Mar, [facility] [id number] [place] [address] 23703- 1456 Mar, [facility] [id number] [place] [address] 42462- 3230 Feb, Dysthymic disorder F34.1 and Generalized anxiety disorder F41.1 [facility] [id number] [place] [address] 28940- 8556 Jan, UTI (urinary tract infection) N39.0 ; Asthma J45.909 ; Coronary artery disease involving little traverse coronary artery of little traverse heart, angina presence unspecified I25.10 ; Hypertension I10 ; Hypothyroid E03.9 ; Vitamin D deficiency E55.9 ; Insomnia G47.00 ; Palpitations R00.2 ; Depressed F32.9 ; Restless leg G25.81 and Anxiety F41.9 [facility] [id number] [place] [address] 11205- 7788 Jan, Dysthymic disorder F34.1 and Generalized anxiety disorder F41.1 [place] [id number] [place] [address] 81328- 5731 Jan, [place] [id number] [place] [address] 99447- 8134 Dec, [place] [id number] [place] [address] 37671- 7980 Dec, Alkalosis 276.3 ; Chronic kidney disease, Stage IV (severe) 585.4 ; Hyperpotassemia 276.7 ; Secondary hyperparathyroidism, renal 588.81 ; Proteinuria 791.0 ; Unspecified vitamin D deficiency 268.9 ; Anemia in chronic kidney disease 285.21 ; Other and unspecified hyperlipidemia 272.4 ; Hypertension, essential, benign 401.1 and Chronic kidney disease (CKD), stage III (moderate) 585.3 [place] [id number] [place] [address] 09004- 4087 Dec, [place] [address] 01286- 4298 Dec, Depressive disorder, not elsewhere classified 311 and Generalized anxiety disorder 300.02 [place] [address] 05162- 4882 Dec, [address] 04721- 5970 Dec, [address] 15307- 6447 Nov, Depressive disorder, not elsewhere classified 311 and Generalized anxiety disorder 300.[address] 52152- 9056 Nov, Arthritis of both knees 716.[address] 82060- 6270 Nov, PAF (paroxysmal atrial fibrillation) 427.31 ; CAD (coronary artery disease) 414.00 ; Chest pain 786.50 and Chronic kidney disease (CKD) stage G4/A1, severely decreased glomerular filtration rate (GFR) between 15-29 mL/min/1.73 square meter and albuminuria creatinine ratio less than 30 mg/g 585.4 [place] [id number] [place] [address] 39910- 8562 Oct, Coronary atherosclerosis of unspecified type of vessel, little traverse or graft 414.00 ; Chronic kidney disease, Stage IV (severe) 585.4 ; Hypertension 401.9 and Edema 782.3 [place] [id number] [place] [address] 75111- 7278 Oct, Depressive disorder, not elsewhere classified 311 and Generalized anxiety disorder 300.02 [place] [id number] [place] [address] 11095- 7479 Oct, Depressive disorder, not elsewhere classified 311 and Generalized anxiety disorder 300.02 [facility] [id number] [place] [address] 59085- 3808 Oct, [facility] [id number] [place] [address] 34574- 8926 Oct, [facility] [id number] [place] [address] 67502- 0572 Sep, [place] [id number] [place] [address] 51928- 7652 Sep, Chronic kidney disease, Stage IV (severe) 585.4 [place] [id number] [place] [address] 27574- 7801 Sep, [place] [id number] [place] [address] 62073- 9929 Sep, Coronary atherosclerosis of unspecified type of vessel, little traverse or graft 414.00 ; Hypertension 401.9 ; Edema 782.3 and Hypothyroidism 244.9 [place] [id number] [place] [address] 34520- 0180 Sep, Coronary atherosclerosis of unspecified type of vessel, little traverse or graft 414.00 ; Hypertension 401.9 ; Fibromyalgia 729.1 ; Edema 782.3 ; Hypothyroidism 244.9 and Anemia 285.9 [place] [id number] [place] [address] 70866- 4061 Sep, Anxiety disorder, unspecified 300.00 and Depressive disorder , not elsewhere classified 311 [facility] [id number] [place] [address] 73791- 2878 Sep, [place] [id number] [place] [address] 73944- 0492 August, Generalized anxiety disorder 300.02 [facility] [id number] [place] [address] 96162- 0924 August, Closed fracture of lateral malleolus 824.2 [facility] [place] [facility] [address] [id number] [place] [address]- 4302 14 Jul, 2014 [facility] [place] [facility] [address] [id number] [place] [address]- 8496 13 Jul, 2014 [facility] [place] [facility] [address] [facility] [id number] [place] [address]- 2854 Jun, [facility] [place] [facility] [address] [id number] [place] [address]- 6504 Jun, [facility] [place] [facility] [address] [id number] [place] [address]- 3371 Jun, [facility] [place] [facility] [address] [id number] [place] [address]- 0144 Jun, [facility] [place] [facility] [address] [id number] [place] [address]- 7547 Jun, [facility] [place] [facility] [address] [facility] [id number] [place] [address]- 9558 Jun, [facility] [place] [facility] [address] [id number] [place] [address]- 4053 May, [facility] [place] [facility] [address] [id number] [address]- 7650 19 May, 2014 [facility] [place] [facility] [address] [id number] [address]- 6759 18 May, 2014 [facility] [place] [facility] [address] [id number] [place] [address]- 6325 18 May, 2014 [facility] [place] [facility] [address] [facility] [id number] [place] [address]- 9065 16 May, 2014 [facility] [place] [facility] [address] [facility] [id number] [address]- 2964 16 May, 2014 [facility] [place] [facility] [address] [id number] [address]- 0044 13 May, 2014 [facility] [place] [facility] [address] [id number] [place] [address]- 9877 13 May, 2014 [facility] [place] [facility] [address] [id number] [place] [address]- 4556 10 May, 2014 [facility] [place] [facility] [address] [id number] [place] [address]- 9786 10 May, 2014 [facility] [place] [facility] [address] [id number] [place] [address]- 0171 Apr, [facility] [place] [facility] [address] [id number] [place] [address]- 7389 Apr, [facility] [place] [facility] [address] [id number] [place] [address]- 9676 Mar, [facility] [place] [facility] [address] [id number] [place] [address]- 3748 Mar, [facility] [place] [facility] [address] [id number] [place] [address]- 4826 Mar, [facility] [place] [facility] [address] [id number] [place] [address]- 6874 Mar, [facility] [place] [facility] [address] [id number] [place] [address]- 3495 Mar, [facility] [place] [facility] [address] [id number] [place] [address]- 9219 15 Mar, 2014 [facility] [place] [facility] [address] [id number] [place] [address]- 2166 Mar, [facility] [place] [facility] [address] [id number] [place] [address]- 5675 Feb, [facility] [place] [facility] [address] [id number] [place] [address]- 2545 Feb, [facility] [place] [facility] [address] [id number] [place] [address]- 2544 17 Feb, 2014 [facility] [place] [facility] [address] [id number] [place] [address]- 1045 Jan, [facility] [place] [facility] [address] [id number] [place] [address]- 4506 Jan, [facility] [place] [facility] [address] [id number] [place] [address]- 9108 Jan, [facility] [place] [facility] [address] [id number] [place] [address]- 3112 Jan, [facility] [place] [facility] [address] [id number] [place] [address]- 5334 Jan, [facility] [place] [facility] [address] [id number] [place] [address]- 1685 Jan, [facility] [place] [facility] [address] [id number] [place] [address]- 5226 Jan, [facility] [place] [facility] [address] [id number] [place] [address]- 6960 Jan, [facility] [place] [facility] [address] [id number] [place] [address]- 4086 Jan, [facility] [place] [facility] [address] [id number] [place] [address]- 3051 Jan, [facility] [place] [facility] [address] [id number] [place] [address]- 5512 Nov, [facility] [place] [facility] [address] [id number] [place] [address]- 1807 Nov, [facility] [place] [facility] [address] [id number] [place] [address]- 0869 Nov, [facility] [place] [facility] [address] [id number] [place] [address]- 7641 Oct, [facility] [place] [facility] [address] [id number] [place] [address]- 3660 Oct, [facility] [place] [facility] [address] [id number] [place] [address]- 2103 Oct, [facility] [place] [facility] [address] [id number] [place] [address]- 7568 Oct, [facility] [place] [facility] [address] [id number] [place] [address]- 0841 Oct, [facility] [place] [facility] [address] [id number] [place] [address]- 9504 Oct, [facility] [place] [facility] [address] [id number] [place] [address]- 1239 Oct, [facility] [place] [facility] [address] [id number] [place] [address]- 7700 Oct, [facility] [place] [facility] [address] [id number] [place] [address]- 8853 Oct, [facility] [place] [facility] [address] [id number] [place] [address]- 5122 Sep, [facility] [place] [facility] [address] [id number] [place] [address]- 4232 Sep, [facility] [place] [facility] [address] [id number] [place] [address]- 8674 Sep, [facility] [place] [facility] [address] [id number] [place] [address]- 6995 Sep, [facility] [place] [facility] [address] [id number] [place] [address]- 6776 Sep, [facility] [place] [facility] [address] [id number] [place] [address]- 2570 Sep, [facility] [place] [facility] [address] [id number] [place] [address]- 8205 Sep, [facility] [place] [facility] [address] [id number] [place] [address]- 3927 Sep, [facility] [place] [facility] [address] [id number] [place] [address]- 3639 Sep, [facility] [place] [facility] [address] [id number] [place] [address]- 4578 August, [facility] [place] [facility] [address] [id number] [place] [address]- 6118 August, [facility] [place] [facility] [address] [id number] [place] [address]- 9550 August, [facility] [place] [facility] [address] [id number] [place] [address]- 4046 August, [facility] [place] [facility] [address] [id number] [place] [address]- 5751 August, [facility] [place] [facility] [address] [id number] [place] [address]- 1036 August, [facility] [place] [facility] [address] [id number] [place] [address]- 5724 Jul, [facility] [place] [facility] [address] [id number] [place] [address]- 7965 Jul, [facility] [place] [facility] [address] [id number] [place] [address]- 1268 Jul, [facility] [place] [facility] [address] [id number] [place] [address]- 2781 Jul, [facility] [place] [facility] [address] [id number] [place] [address]- 7491 Jul, [facility] [place] [facility] [address] [id number] [place] [address]- 1271 Jul, [facility] [place] [facility] [address] [id number] [place] [address]- 2692 Jun, [facility] [place] [facility] [address] [id number] [place] [address]- 4032 Jun, [facility] [place] [facility] [address] [id number] [place] [address]- 4708 May, [facility] [place] [facility] [address] [id number] [place] [address]- 1435 May, [facility] [place] [facility] [address] [id number] [place] [address]- 0028 10 May, 2013 [facility] [address] [id number] [place] [address]- 6050 10 May, 2013 [facility] [address] [id number] [place] [address]- 9723 Apr, [facility] [address] [facility] [id number] [place] [address]- 5123 Apr, [facility] [address] [id number] [place] [address]- 0500 18 Mar, 2013 [facility] [address] [id number] [place] [address]- 2788 18 Mar, 2013 [facility] [address] [id number] [place] [address]- 8357 Mar, [facility] [address] [facility] [id number] [place] [address]- 9736 17 Mar, 2013 [facility] [address] [facility] [id number] [place] [address]- 5757 Mar, [facility] [address] [facility] [id number] [place] [address]- 7464 05 Mar, 2013 [facility] [address] [facility] [id number] [place] [address]- 2132 Feb, [facility] [address] [id number] [place] [address]- 2623 Feb, [facility] [place] [facility] [address] [id number] [place] [address]- 3689 14 Feb, 2013 [facility] [place] [facility] [address] [id number] [place] [address]- 0357 14 Feb, 2013 [facility] [place] [facility] [address] [facility] [id number] [place] [address]- 6467 05 Feb, 2013 [facility] [place] [facility] [address] [facility] [id number] [place] [address]- 5091 05 Feb, 2013 [facility] [place] [facility] [address] [id number] [place] [address]- 7085 Jan, [facility] [place] [facility] [address] [id number] [place] [address]- 8269 Jan, [facility] [place] [facility] [address] [id number] [place] [address]- 0670 Jan, [facility] [place] [facility] [address] [id number] [place] [address]- 2955 Jan, [facility] [place] [facility] [address] [id number] [place] [address]- 7794 Jan, [facility] [place] [facility] [address] [id number] [place] [address]- 8488 Jan, [facility] [place] [facility] [address] [id number] [place] [address]- 9714 Dec, [facility] [place] [facility] [address] [id number] [place] [address]- 0558 Dec, [facility] [place] [facility] [address] [id number] [place] [address]- 9741 Nov, [facility] [place] [facility] [address] [id number] [place] [address]- 6680 Nov, [facility] [place] [facility] [address] [id number] [place] [address]- 7787 Oct, [facility] [place] [facility] [address] [id number] [place] [address]- 1965 Oct, [facility] [place] [facility] [address] [id number] [place] [address]- 7975 Oct, [facility] [place] [facility] [address] [id number] [place] [address]- 0005 Oct, [facility] [place] [facility] [address] [id number] [place] [address]- 2544 Oct, [facility] [place] [facility] [address] [id number] [place] [address]- 1978 Oct, [facility] [address] [id number] [place] [address]- 6153 Sep, [facility] [address] [id number] [place] [address]- 8633 Sep, [facility] [address] [id number] [place] [address]- 0726 Sep, [facility] [place] [facility] [address] [id number] [place] [address]- 2775 Sep, [facility] [address] [id number] [place] [address]- 8148 August, [facility] [address] [id number] [place] [address]- 1827 August, [facility] [address] [id number] [place] [address]- 9968 August, [facility] [address] [id number] [place] [address]- 9503 August, [facility] [address] [id number] [place] [address]- 2182 August, [facility] [address] [id number] [place] [address]- 1560 Jul, [facility] [place] [facility] [address] [id number] [place] [address]- 5595 Jul, [facility] [place] [facility] [address] [id number] [place] [address]- 1624 15 Jul, 2012 [facility] [place] [facility] [address] [id number] [place] [address]- 0292 Jul, [facility] [place] [facility] [address] [id number] [place] [address]- 5222 Jul, [facility] [place] [facility] [address] [id number] [place] 0069 Jul, [facility] [place] [facility] [address] [id number] [place] [address]- 9186 08 Jul, 2012 [facility] [address] [id number] [place] [address]- 1884 Jul, [facility] [address] [facility] [id number] [place] [address]- 9886 Jul, [facility] [address] [facility] [id number] [place] [address]- 2546 Jul, [facility] [address] [id number] [id number] Jun, [facility] [address] [id number] [place] [address]- 5626 Jun, [facility] [address] [id number] [place] [address]- 0586 Jun, [facility] [address] [id number] [place] [address]- 4456 Jun, [facility] [address] [id number] [place] [address]- 6053 Jun, [facility] [address] [id number] [place] [address]- 7921 May, [facility] [address] [id number] [place] [address]- 1488 May, [facility] [address] [id number] [place] [address]- 6426 May, [facility] [address] [id number] [place] [address]- 5453 Apr, [facility] [address] [id number] [place] [address]- 9100 Apr, [facility] [address] [id number] [place] [address]- 0736 Apr, [facility] [address] [facility] [id number] [place] [address]- 1316 Apr, [facility] [address] [id number] [place] [address]- 1787 Apr, [facility] [place] [facility] [address] [id number] [place] [address]- 2238 Apr, [facility] [place] [facility] [address] [id number] [place] [address] Mar, [facility] [place] [facility] [address] [id number] [place] [address] Mar, [facility] [place] [facility] [address] [id number] [place] [address] Mar, [facility] [place] [facility] [address] [id number] [place] [address] Mar, [facility] [place] [facility] [address] [id number] [place] [address] Feb, [facility] [place] [facility] [address] [id number] [place] [address] Feb, [facility] [place] [facility] [address] [id number] [place] [address] Feb, [facility] [place] [facility] [address] [id number] [place] [address] Feb, [facility] [place] [facility] [address] [id number] [place] [address] Feb, [facility] [place] [facility] [address] [id number] [place] [address] 47[address] Feb, [facility] [place] [facility] [address] [id number] [place] [address] Feb, [facility] [place] [facility] [address] [id number] [place] [address] Feb, [facility] [place] [facility] [address] [id number] [place] [address]008 Feb, [facility] [place] [facility] [address] [id number] [place] [address] Feb, [facility] [place] [facility] [address] [id number] [place] [address] Feb, [facility] [place] [facility] [address] [id number] [place] [address] Feb, [facility] [place] [facility] [address] [facility] [id number] [place] [address] Feb, [facility] [place] [facility] [address] [id number] [place] [address] Feb, [facility] [place] [facility] [address] [id number] [place] [address] 24[address] Feb, [facility] [place] [facility] [address] [id number] [place] [address] Feb, [facility] [place] [facility] [address] [facility] [id number] [place] [address] Jan, [facility] [place] [facility] [address] [id number] [place] [address] Jan, [facility] [place] [facility] [address] [id number] [place] [address] Jan, [facility] [place] [facility] [address] [id number] [place] [address] Jan, [facility] [place] [facility] [address] [id number] [place] [address] 30 Jan, 2012 [facility] [place] [facility] [address] [id number] [place] [address] Jan, [facility] [place] [facility] [address] [id number] [place] [address] Jan, [facility] [place] [facility] [address] [facility] [id number] [place] [address] Jan, [facility] [place] [facility] [address] [facility] [id number] [place] [address] Jan, [facility] [place] [facility] [address] [id number] [place] [address] 15 Jan, 2012 [facility] [address] [id number] [place] [address] 15 Jan, 2012 [facility] [place] [facility] [address] [id number] [place] [address] Jan, [facility] [address] [id number] [place] [address] 26 Dec, 2011 [facility] [place] [facility] [address] [id number] [place] [address] 2541 26 Dec, 2011 [facility] [address] [id number] [place] [address] 24 Dec, 2011 [facility] [address] [id number] [place] [address] 46[address] 23 Dec, 2011 [facility] [place] [facility] [address] [id number] [place] [address]- [address]275 22 Dec, 2011 [facility] [address] [id number] [place] [address] 4947 21 Dec, 2011 [facility] [place] [facility] [address] [id number] [place] [address] 2548 20 Dec, 2011 [facility] [address] [id number] [place] [address] 20 Dec, 2011 [facility] [place] [facility] [address] [id number] [place] [address]46 07 Sep, 2011 [facility] [address] [id number] [place] [address] 2546 06 Sep, 2011 [facility] [place] [facility] [address] [id number] [place] [address] 2546 06 Sep, 2011 [facility] [place] [facility] [address] [id number] [place] [address]- [address]46 05 Sep, 2011 [facility] [place] [facility] [address] [id number] [place] [address]- [address]34 Nov, [facility] [place] [facility] [address] [id number] [place] [address] 9979 Nov, [facility] [place] [facility] [address] [id number] [place] [address]- 2816 Nov, [facility] [place] [facility] [address] [id number] [place] [address]- 6168 Nov, [facility] [place] [facility] [address] [id number] [place] [address] 288[address] Nov, [facility] [place] [facility] [address] [id number] [place] [address]798 Nov, [facility] [place] [facility] [address] [id number] [place] [address] 30[address] Nov, [facility] [place] [facility] [address] [id number] [place] [address] Nov, [facility] [place] [facility] [address] [id number] [place] [address] Oct, [facility] [place] [facility] [address] [id number] [place] [address] 407[address] Oct, [facility] [place] [facility] [address] [id number] [place] [address]359 Oct, [facility] [place] [facility] [address] [id number] [place] [place] [address] Oct, [facility] [place] [facility] [address] [id number] [place] [address] Oct, [facility] [place] [facility] [address] [id number] [place] [address] Oct, [facility] [place] [facility] [address] [id number] [place] [address] Oct, [facility] [place] [facility] [address] [id number] [place] [address] Sep, [facility] [place] [facility] [address] [id number] [place] [address] Sep, [facility] [address] [id number] [place] [address] August, [facility] [place] [facility] [address] [id number] [place] [address] August, [facility] [address] [id number] [place] [address] August, [facility] [place] [facility] [address] [id number] [place] [address] August, [facility] [address] [id number] [place] [address] Jul, [facility] [place] [facility] [address] [id number] [place] [address] Jul, [facility] [address] [id number] [place] [address] Jul, [facility] [place] [facility] [address] [id number] [place] [address] Jul, [facility] [address] [id number] [place] [address] Jul, [facility] [place] [facility] [address] [id number] [place] [address] Jul, [facility] [place] [facility] [address] [id number] [place] [address] Jul, [facility] [place] [facility] [address] [id number] [place] [address] Jul, [facility] [place] [facility] [address] [id number] [place] [address] Jul, [facility] [place] [facility] [address] [id number] [place] [address] Jun, [facility] [place] [facility] [address] [id number] [place] [address] Jun, [facility] [place] [facility] [address] [id number] [place] [address] 15 Jun, 2011 [facility] [place] [facility] [address] [id number] [place] [address]- [address] 14 Jun, 2011 [facility] [place] [facility] [address] [id number] [place] [address]- [address] 12 Jun, 2011 [facility] [place] [facility] [address] [id number] [place] [address]- [address] 09 Jun, 2011 [facility] [place] [facility] [address] [id number] [place] [address]- [address] 09 Jun, 2011 [facility] [place] [facility] [address] [id number] [place] [address] 25 May, 2011 [facility] [place] [facility] [address] [id number] [place] [address] 24 May, 2011 [facility] [place] [facility] [address] [id number] [place] [address] 16 May, 2011 [facility] [place] [facility] [address] [id number] [place] [address] May, [facility] [place] [facility] [address] [id number] [place] [address] May, [facility] [place] [facility] [address] [id number] [place] [address] Apr, [facility] [place] [facility] [address] [id number] [place] [address] Apr, [facility] [place] [facility] [address] [id number] [place] [address] Apr, [facility] [place] [facility] [address] [id number] [place] [address] Apr, [facility] [place] [facility] [address] [id number] [place] [address]- [address] 05 Apr, 2011 [facility] [place] [facility] [address] [id number] [place] [address] Mar, [facility] [place] [facility] [address] [id number] [place] [address] 1433 Mar, [facility] [place] [facility] [address] [id number] [place] [address] Mar, [facility] [place] [facility] [address] [id number] [place] [address] Mar, [facility] [place] [facility] [address] [id number] [place] [address] Mar, [facility] [place] [facility] [address] [id number] [place] [address] Mar, [facility] [place] [facility] [address] [id number] [place] Mar, [facility] [place] [facility] [address] [id number] [place] [address] Feb, [facility] [place] [facility] [address] [id number] [place] [address]- [address] Feb, [facility] [place] [facility] [address] [id number] [place] [address]- [address] Feb, [facility] [place] [facility] [address] [id number] [place] [address]- [address] Feb, [facility] [place] [facility] [address] [id number] [place] [address] Jan, [facility] [place] [facility] [address] [id number] [place] [address]- [address] Jan, [facility] [place] [facility] [address] [id number] [place] [address]- [address] Jan, [facility] [place] [facility] [address] [id number] [place] [address]- [address] Jan, [facility] [place] [facility] [address] [id number] [place] [address]- [address] Nov, [facility] [place] [facility] [id number] [id number] Mar, [facility] [id number] [address] Mar, [facility] [id number] [address] Mar, [facility] [id number] [address] Mar, [facility] [id number] [address] Mar, [facility] [id number] [place] [address] Mar, [facility] [id number] [address] Feb, [facility] [id number] [place] [address] Feb, [facility] [id number] [address] Jan, [facility] [id number] [address] Jan, [facility] [id number] [address] Jan, IMMUNIZATIONS No Known Immunizations SOCIAL HISTORY [...]
--- OUTSIDE RECORDS SUMMARY | 2018-05-29 09:06 | XMS REPORT ---
Author Author ISABEL MAE [facility] Address [address] [place] [address] Care Team Providers Care Edger Hand Name Role Phone ISABEL MAE Unavailable PROBLEMS Type Condition ICD9-CM Code EFR59-DB Code Onset Dates Condition Status SNOMED Code Problem Long-term use of high-risk medication Z79.899 Active 050273425 Problem Abnormal chest CT R93.8 Active 445180477 Problem Low back pain M54.5 Active 343632656 Problem Generalized anxiety disorder F41.1 Active 76074946 Problem Dysthymic disorder F34.1 Active 13389300 Problem Coronary artery disease involving pala coronary artery of pala heart, angina presence unspecified I25.10 Active 2465037167882 Problem Depressed F32.9 Active 05209558 Problem Fibromyalgia M79.7 Active 752920234 Problem Hypothyroid E03.9 Active 03850946 Problem Essential (primary) hypertension I10 Active 58578778 Problem Insomnia G47.00 Active 557499189 Problem Vitamin D deficiency E55.9 Active 63307512 Problem Anemia in chronic kidney disease D63.1 Active 135801946901962 Problem Chronic kidney disease, unspecified N18.9 Active 621553558 Problem Body mass index (BMI) of 40.0-44.9 in adult Z68.41 Active 679562526 Problem Stage 3 chronic kidney disease N18.3 Active 603063867 Problem Restless leg G25.81 Active 29304740 Problem Palpitations R00.2 Active 81030020 Problem Asthma J45.909 Active 554062535 Problem Primary osteoarthritis of left knee M17.12 Active 568681866 Problem Bipolar disorder, current episode manic without psychotic features F31.10 Active 641531165 Problem Mood disorder F39 Active 70361602 Problem Degenerative tear of medial meniscus of left knee M23.204 Active 115806664 Problem History of colon polyps Z86.010 Active 624631283 Problem Asthma with acute exacerbation in adult J45.901 Active 072343690 Problem Chronic kidney disease, stage 4 (severe) N18.4 Active 088922503 Problem Functional diarrhea K59.1 Active 55850053 Problem Hypokalemia E87.6 Active 94119766 Problem Mixed stress and urge urinary incontinence N39.46 Active 099809539 Problem History of anemia Z86.2 Active 262396310 Problem Other seasonal allergic rhinitis J30.2 Active 612892848 ALLERGIES No Information ENCOUNTERS Encounter Location Date Diagnosis [place] [address] [address] August, [place] [address] 37298- 2187 Jul, [place] [address] [address]16- 4040 Jul, Chronic kidney disease, stage 4 (severe) N18.4 [place] [address] 78093- 4869 Jul, [place] [address] 72781- 3959 Jul, Restless leg G25.81 ; Mixed stress and urge urinary incontinence N39.46 and Fibromyalgia M79.7 [place] [address] 58449- 7121 Jul, Chronic kidney disease, stage 4 (severe) N18.4 [place] [address] 03268- 9993 Jun, Orthostatic hypotension I95.1 ; Chronic kidney disease, stage 4 (severe) N18.4 ; Chest wall discomfort R07.89 and Body mass index (BMI) of 40.0-44.9 in adult Z68.41 [place] [address] 44622- 4674 Jun, [place] [address] 94508- 2113 Jun, Orthostatic hypotension I95.1 [facility] [address] [place] [id number] [place] [address] 61885- 8542 Jun, [facility] [address] [place] [address] [id number] [place] [address] 29315 -9304 Jun, Orthostatic hypotension I95.1 ; Dysuria R30.0 and Acute cystitis without hematuria N30.00 [facility] [address] [place] [id number] [place] [address] 40463- 9738 Jun, [facility] [address] [id number] [place] [address] 28265- 9864 Jun, Chronic kidney disease, stage 4 (severe) N18.4 [facility] [address] [place] [id number] [place] [address] 84255- 0028 Jun, Fibromyalgia M79.7 [facility] [address] [place] [id number] [place] [address] 53816- 0824 Jun, [facility] [address] [place] [id number] [place] [address] 12854- 5731 Jun, [facility] [address] 80624- [address] May, [address] R93.8 and Stage 3 chronic kidney disease N18.3 [facility] [address] [place] [id number] [place] [address] 93431- 7472 May, Chronic kidney disease, stage 4 (severe) N18.4 [facility] [address] [place] [id number] [place] [address] 46916- 7853 May, Chronic kidney disease, stage 4 (severe) N18.4 [facility] [address] [place] [id number] [place] [address] 20864- [address] May, [address] R93.8 [facility] [address] [place] [id number] [place] [address] 30078- 8164 May, [facility] [address] [place] [address] [id number] [place] [address] 78692- 0541 May, [facility] [address] [place] [address] May, Generalized anxiety disorder F41.1 and Major depressive disorder, recurrent episode with anxious distress F33.9 [facility] [address] [address] May, Mood disorder F39 [facility] [address] [place] [address] 62330- 8895 Apr, [facility] [address] [address] Apr, Infected skin lesion L08.9 and Muscle strain of right shoulder region, initial encounter S46.911A [place] [address] [address] Apr, Generalized anxiety disorder F41.1 and Major depressive disorder, recurrent episode with anxious distress F33.9 [facility] [address] [address] 4[address] Apr, [facility] [address] [place] [address] 61790- 5624 Apr, Recent urinary tract infection Z87.440 and Hypothyroid E03.9 [place] [address] [address] 138[address] Apr, Generalized anxiety disorder F41.1 and Major depressive disorder, recurrent episode with anxious distress F33.9 [facility] [address] [place] [id number] [address] Apr, Recent urinary tract infection Z87.440 [facility] [address], [place] [address] 2257 Mar, [facility] [address] [id number] [address] Mar, Dysuria R30.0 ; Acute cystitis without hematuria N30.00 and BMI 40.0-44.9, adult Z68.41 [place] [address] [place] [address] 32115- 6824 14 Mar, 2017 [place] [address] [place] [id number] [place] [address] 73278- 0260 Mar, [place] [address] [place] [id number] [place] [address] 10888- 1574 Mar, Generalized anxiety disorder F41.1 and Major depressive disorder, recurrent episode with anxious distress F33.9 [place] [address] [place] [id number] [place] [address] 36649- 0938 Feb, Conjunctivitis, bacterial H10.9 [place] [address] [place] [id number] [place] [address] 00884- 4314 Feb, [facility] [address] [place] [id number] [place] [address] 69607 -4288 Feb, Conjunctivitis, bacterial H10.9 [place] [address] [place] [id number] [place] [address] 24892- 5172 Feb, [facility] [address] [place] [id number] [place] [address] 15394 -4461 Feb, Dysuria R30.0 ; Acute cystitis N30.00 and BMI 40.0-44.9, adult Z68.41 [place] [address] [place] [id number] [place] [address] 44428- 5029 Feb, [place] [address] [place] [id number] [place] [address] 03108- 1958 Feb, Generalized anxiety disorder F41.1 and Major depressive disorder, recurrent episode with anxious distress F33.9 [place] [address] [place] [id number] [place] [address] 61367- 8404 Feb, Mood disorder F39 and BMI 40.0-44.9, adult Z68.41 [place] [address] [place] [id number] [place] [address] 36970- 7874 Jan, [facility] [address] [place] [id number] [place] [address] 39982- 1221 Jan, [facility] [address] [place] [id number] [place] [address] 63592- 4532 Jan, Hypothyroid E03.9 [facility] [address] [place] [id number] [place] [address] 07773- 4364 Jan, [place] [address] [place] [id number] [place] [address] 56161- 7431 Jan, Chronic kidney disease, unspecified N18.9 ; Hypokalemia E87.6 ; Essential (primary) hypertension I10 ; Fibromyalgia M79.7 ; Coronary artery disease involving pala coronary artery of pala heart, angina presence unspecified I25.10 ; Hypothyroid E03.9 and Encounter for immunization Z23 [place] [address] [address]- 2989 Jan, Hypothyroid E03.9 [place] [address] [place] [id number] [place] [address] 55419- 7611 Jan, [place] [address] [place] [id number] [place] [address] 51903- 9772 Dec, Vitamin D deficiency E55.9 [place] [address] [place] [id number] [place] [address] 08087- 0642 Dec, Primary osteoarthritis of left knee M17.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 [place] [address] [place] [id number] [place] [address] 39739- 8097 19 Dec, 2016 Fibromyalgia M79.7 [facility] [address] [place] [id number] [place] [address] 82018- 4597 18 Dec, 2016 Mood disorder F39 [facility] [address] [place] [id number] [place] [address] 30328- 7035 13 Dec, 2016 [place] [address] [place] [id number] [place] [address] 61864- 9452 13 Dec, 2016 Generalized anxiety disorder F41.1 and Major depressive disorder, recurrent episode with anxious distress F33.9 [facility] [address] [address]- 5868 11 Dec, 2016 [facility] [address], [place] [address]- 7695 08 Dec, 2016 Streptococcal meningitis G00.2 [facility] [id number] [place] [address] 70679- 1095 07 Dec, 2016 Streptococcal meningitis G00.2 [facility] [address], [place] [address]- 0643 07 Dec, 2016 [facility] [id number] [place] [address] 40583- 9998 06 Dec, 2016 [facility] [address] [place] [address] 04519- 0893 06 Dec, 2016 Streptococcal meningitis G00.2 [facility] [address], [place] [address]- 5331 06 Dec, 2016 Major depressive disorder, recurrent episode with anxious distress F33.9 [facility] [address] [place] [address] 07351- 6217 Nov, Fever, unspecified fever cause R50.9 [facility] [address] [address]- 6386 Nov, [facility] [id number] [place] [address] 70646- 2505 Nov, Hypothyroid E03.9 [facility] [address] [place] [address] 50175- 0061 Nov, Generalized anxiety disorder F41.1 and Major depressive disorder, recurrent episode with anxious distress F33.9 [facility] [address], [place] [address]- 7582 Nov, [facility] [address] [id number] Oct, Dental examination Z01.20 [facility] [address], [place] [address]- 2879 Oct, Generalized anxiety disorder F41.1 and Major depressive disorder, recurrent episode with anxious distress F33.9 [place] [address], [place] [address]- 5539 Oct, Chronic kidney disease, stage 4 (severe) N18.4 [facility] [address] [place] [id number] [place] [address] 89829- 4439 Oct, [place] [address] [place] [id number] [place] [address] 91335- 5884 Oct, Fibromyalgia M79.7 [place] [address] [place] [id number] [place] [address] 54584- 3089 Oct, [place] [address] [place] [id number] [place] [address] 74159- 9286 Oct, Generalized anxiety disorder F41.1 ; Major depressive disorder, recurrent episode with anxious distress F33.9 and Bipolar disorder, current episode manic without psychotic features F31.10 [place] [address] [place] [address] 50958- 6701 Sep, [place] [address] [address]- 2533 Sep, [place] [address] [place] [address]- 4332 Sep, Vitamin D deficiency E55.9 [facility] [address], [place] [address]- 2341 Sep, Vitamin D deficiency E55.9 [place] [address], [place] [address]- 1356 Sep, [facility] [address], [place] [address]- 4722 Sep, Chronic kidney disease, stage 4 (severe) [...] and Low back pain M54.5 [place] [address] [place] [id number] [place] [address] 56841- 2705 August, Generalized anxiety disorder F41.1 and Major depressive disorder, recurrent episode with anxious distress F33.9 [place] [address] 87588- 9080 August, Generalized anxiety disorder F41.1 and Major depressive disorder, recurrent episode with anxious distress F33.9 [place] [address] [place] [id number] [place] [address] 05645- 0383 August, Fibromyalgia M79.7 [place] [address] [place] [id number] [place] [address] 04190- 5998 Jul, Generalized anxiety disorder F41.1 and Major depressive disorder, recurrent episode with anxious distress F33.9 [place] [address] [place] [id number] [place] [address] 12143- 4461 Jul, Fibromyalgia M79.7 [place] [address] [place] [id number] [place] [address] 23431- 5199 Jul, Generalized anxiety disorder F41.1 [place] [address] [place] [id number] [place] [address] 86923- 4289 May, [place] [address] [place] [address] [id number] [place] [address] 70465- 6355 May, Hypothyroid E03.9 [place] [address] [place] [address] [id number] [place] [address] 87917- 5529 May, Chronic kidney disease, stage 4 (severe) [...] of pala heart, angina presence unspecified I25.10 [place] [address] [place] [id number] [place] [address] 79767- 7166 May, Vitamin D deficiency, unspecified E55.9 [place] [address] [place] [id number] [place] [address] 85934- 8126 May, Generalized anxiety disorder F41.1 and Major depressive disorder, recurrent episode with anxious distress F33.9 [place] [address] [place] [address] [id number] [place] [address] 68558- 3752 Apr, Pain in right knee M25.561 and Pain in left knee M25.562 [place] [address] [place] [id number] [place] [address] 18190- 2269 Apr, [place] [address] [place] [address] [id number] [place] [address] 11616- 6066 Apr, [place] [id number] [place] [address] 75358- 2287 Apr, [place] [address] [place] [address] [id number] [place] [address] 79759- 9306 Mar, Generalized anxiety disorder F41.1 and Major depressive disorder, recurrent episode with anxious distress F33.9 [place] [address] [place] [address] [id number] [place] [address] 75968- 8078 Mar, Generalized anxiety disorder F41.1 and Major depressive disorder, recurrent episode with anxious distress F33.9 [place] [address] [place] [address] [id number] [place] [address] 80847- 1294 Mar, [place] [address] [place] [address] [id number] [place] [address] 06370- 8903 Mar, [facility] [id number] [place] [address] 91398- 9806 Mar, [facility] [address] [place] [id number] [place] [address] 81162- 4433 Mar, Asthma J45.909 and Fibromyalgia M79.7 [place] [address] 34460- 5121 Mar, Chronic kidney disease, stage 4 (severe) N18.4 ; Vitamin D deficiency E55.9 and Essential (primary) hypertension I10 [place] [address] 24325- 1431 Feb, [place] [address] [place] [id number] [place] [address] 97927- 5068 Feb, Dysuria R30.0 ; Mixed stress and urge urinary incontinence N39.46 ; Fibromyalgia M79.7 and Chronic kidney disease, stage IV (severe) N18.4 [place] [address] [place] [address] [id number] [place] [address] 97325- 1115 Feb, Chronic kidney disease, stage 4 (severe) N18.4 [place] [address] [place] [address] [id number] [place] [address] 86852- 9522 Feb, Chronic kidney disease, stage 4 (severe) N18.4 [place] [id number] [place] [address] 71571- 4659 Feb, [place] [id number] [place] [address] 98416- 7831 Feb, Vitamin D deficiency, unspecified E55.9 [place] [id number] [place] [address] 98796- 8099 Jan, [place] [id number] [place] [address] 37254- 6470 Jan, [place] [id number] [place] [address] 03812- 8346 Dec, [facility] [address] [place] [address] 41394- 0389 Dec, Chronic kidney disease, stage 4 (severe) N18.4 [facility] [id number] [place] [address] 02307- 7953 Dec, Dysthymic disorder F34.1 and Generalized anxiety disorder F41.1 [facility] [id number] [place] [address] 65110- 4551 Dec, [facility] [id number] [place] [address] 31808- 9660 Dec, [facility] [id number] [place] [address] 09253- 3646 Dec, Dysthymic disorder F34.1 and Generalized anxiety disorder F41.1 [place] [id number] [place] [address] 02397- 6946 Dec, Dysuria R30.0 ; Chronic kidney disease, stage 4 (severe) N18.4 ; Hypertension I10 ; Dyspepsia R10.13 ; Yeast dermatitis B37.2 ; Palpitations R00.2 ; Hypothyroid E03.9 ; Functional diarrhea K59.1 and Other seasonal allergic rhinitis J30.2 [facility] [id number] [place] [address] 65030 -2385 Dec, [facility] [id number] [place] [address] 53478 -1374 Nov, Dysuria R30.0 and Stress incontinence N39.3 [facility] [id number] [place] [address] 68329- 4035 Nov, [facility] [id number] [place] [address] 06106- 6723 Nov, [facility] [id number] [place] [address] 35202- 0454 Nov, Osteoarthritis of knees, bilateral M17.0 [place] [id number] [place] [address] 26439- 2776 Nov, Dysthymic disorder F34.1 and Generalized anxiety disorder F41.1 [place] [id number] [place] [address] 01802- 0155 Nov, [place] [id number] [place] [address] 06940- 5945 Nov, [place] [id number] [place] [address] 27322- 7015 Nov, Urgency of urination R39.15 [place] [id number] [place] [address] 77883- 0669 Nov, [place] [id number] [place] [address] 04149- 8804 Nov, Chronic kidney disease, stage 4 (severe) N18.4 [place] [id number] [place] [address] 17369- 6303 Oct, Hypertension I10 ; Coronary artery disease involving pala coronary artery of pala heart, angina presence unspecified I25.10 ; Palpitations R00.2 ; Hypothyroid E03.9 ; Right foot pain M79.671 ; Functional diarrhea K59.1 and Other seasonal allergic rhinitis J30.2 [place] [id number] [place] [address] 23909- 1532 Oct, Dysthymic disorder F34.1 and Generalized anxiety disorder F41.1 [place] [address] [place] [address] 71711- 2108 Sep, [place] [id number] [place] [address] 02880- 4673 Sep, [place] [id number] [place] [address] 39017- 1762 Sep, [place] [id number] [place] [address] 15495- 0600 Sep, [place] [id number] [place] [address] 96110- 9492 29 Sep, 2015 [place] [address] 25562- 5944 27 Sep, 2015 Dysthymic disorder F34.1 and Generalized anxiety disorder F41.1 [place] [id number] [place] [address] 69582- 2673 16 Sep, 2015 Asthma with acute exacerbation in adult J45.901 ; Dysuria R30.0 ; Chronic kidney disease, stage 4 (severe) N18.4 and History of anemia Z86.[address] 87154- 3874 2015 Generalized anxiety disorder F41.1 and Dysthymic disorder F34.[address] 30444- 3840 August, Screening breast examination Z12.39 and Acute recurrent maxillary sinusitis J01.01 [id number] [place] [address] 05073- 4205 August, Osteoarthritis of knees, bilateral M17.[address] 01969- 6129 August, Chronic kidney disease, stage 4 (severe) N18.4 ; Acute non- recurrent maxillary sinusitis J01.00 ; Urinary problem R39.89 ; Bowel habit changes R19.4 ; Functional diarrhea K59.1 and History of colon polyps Z86.010 [place] [id number] [place] [address] Jul, Dysthymic disorder F34.1 and Generalized anxiety disorder F41.1 [place] [id number] [place] [address]- [address] Jul, [place] [id number] [place] [address] 12[address]- [address] Jul, Dysthymic disorder F34.1 ; Generalized anxiety disorder F41.1 and assisted use of drug Z79.899 [facility] [id number], [place] [address] Jul, [facility] [id number] [place] [address]95- 2920 Jun, [facility] [id number] [place] [address]77- 9938 Jun, [facility] [id number] [place] [address] 81165- 4488 May, [facility] [id number] [place] [address]- [address] May, Dysthymic disorder F34.1 and Generalized anxiety disorder F41.1 [place] [id number] [place] [address] 37547- 8184 Apr, Kidney disease N28.9 [place] [id number] [place] [address] 35793- 8815 Apr, Dysthymic disorder F34.1 and Generalized anxiety disorder F41.1 [place] [id number] [place] [address] 73128- 8808 Apr, Chronic kidney disease, stage 4 (severe) N18.4 [place] [id number] [place] [address]33- 3943 Apr, Generalized anxiety disorder F41.1 ; Major depression, recurrent F33.9 and Sleep disturbance G47.9 [place] [id number] [place] [address] 86662- 9285 Mar, Generalized anxiety disorder F41.1 and Dysthymic disorder F34.1 [place] [id number] [place] [address] 25064- 7891 Mar, Generalized anxiety disorder F41.1 ; Dysthymic disorder F34.1 and Insomnia G47.00 [place] [id number] [place] [address] 67501- 0675 Mar, [facility] [id number] [place] [address] 99059- 8005 Mar, [facility] [address] 10190- 2088 Mar, Osteoarthritis of knees, bilateral M17.[address] 76412- 0971 Mar, Hypertension I10 ; Hypothyroid E03.9 ; Dysthymic disorder F34.1 ; Chronic kidney disease, stage 4 (severe) N18.4 and Nausea & vomiting R11.2 [place] [address] 52911- 1036 Mar, Generalized anxiety disorder F41.1 ; Dysthymic disorder F34.1 and Insomnia G47.[address] 63438- 7684 Mar, Dehydration E86.0 ; Chronic kidney disease, stage 4 (severe ) N18.4 and Nausea & vomiting R11.2 [facility] [id number] [place] [address] 63631 -1070 Mar, Gastroenteritis K52.9 [facility] [id number] [place] [address] 93235- 0713 Mar, [facility] [id number] [place] [address] 60384- 3687 Mar, [facility] [id number] [place] [address] 48934- 5019 Feb, Dysthymic disorder F34.1 and Generalized anxiety disorder F41.[address] 34973- 7027 Jan, UTI (urinary tract infection) N39.0 ; Asthma J45.909 ; Coronary artery disease involving pala coronary artery of pala heart, angina presence unspecified I25.10 ; Hypertension I10 ; Hypothyroid E03.9 ; Vitamin D deficiency E55.9 ; Insomnia G47.00 ; Palpitations R00.2 ; Depressed F32.9 ; Restless leg G25.81 and Anxiety F41.9 [place] [id number] [place] [address] 54749- 9177 Jan, Dysthymic disorder F34.1 and Generalized anxiety disorder F41.[address] 17664- 4774 Jan, [place] [address] 91699- 3541 Dec, [place] [address] 57982- 9312 Dec, Alkalosis 276.3 ; Chronic kidney disease, Stage IV (severe) 585.4 ; Hyperpotassemia 276.7 ; Secondary hyperparathyroidism, renal 588.81 ; Proteinuria 791.0 ; Unspecified vitamin D deficiency 268.9 ; Anemia in chronic kidney disease 285.21 ; Other and unspecified hyperlipidemia 272.4 ; Hypertension, essential, benign 401.1 and Chronic kidney disease (CKD), stage III (moderate) 585.3 [place] [address] 03658- 2584 Dec, [place] [address] 62321- 0006 Dec, Depressive disorder, not elsewhere classified 311 and Generalized anxiety disorder 300.02 [place] [id number] [place] [address] 42143- 5664 Dec, [place] [address] 94653- 1933 Dec, [address] 26059- 8145 Nov, Depressive disorder, not elsewhere classified 311 and Generalized anxiety disorder 300.[address] 33448- 7022 Nov, Arthritis of both knees 716.96 [address] [id number] [place] [address] 51059- 6799 Nov, PAF (paroxysmal atrial fibrillation) 427.31 ; CAD (coronary artery disease) 414.00 ; Chest pain 786.50 and Chronic kidney disease (CKD) stage G4/A1, severely decreased glomerular filtration rate (GFR) between 15-29 mL/min/1.73 square meter and albuminuria creatinine ratio less than 30 mg/g 585.4 [place] [address] 20017- 2669 Oct, Coronary atherosclerosis of unspecified type of vessel, pala or graft 414.00 ; Chronic kidney disease, Stage IV (severe) 585.4 ; Hypertension 401.9 and Edema 782.3 [id number] [place] [address] 24441- 9573 Oct, Depressive disorder, not elsewhere classified 311 and Generalized anxiety disorder 300.02 [address] [id number] [place] [address] 16739- 6090 Oct, Depressive disorder, not elsewhere classified 311 and Generalized anxiety disorder 300.02 [id number] [place] [address] 24338- 7071 Oct, [place] [address] [id number] [place] [address] 40985- 9977 Oct, [place] [id number] [place] [address] 22627- 1826 Sep, [place] [id number] [place] [address] 19220- 8504 Sep, Chronic kidney disease, Stage IV (severe) 585.4 [place] [id number] [place] [address] 19101- 6200 Sep, [place] [id number] [place] [address] 23849- 9352 Sep, Coronary atherosclerosis of unspecified type of vessel, pala or graft 414.00 ; Hypertension 401.9 ; Edema 782.3 and Hypothyroidism 244.9 [facility] [id number] [place] [address] 65416- 3256 Sep, Coronary atherosclerosis of unspecified type of vessel, pala or graft 414.00 ; Hypertension 401.9 ; Fibromyalgia 729.1 ; Edema 782.3 ; Hypothyroidism 244.9 and Anemia 285.9 [facility] [address] 45260- 6048 Sep, Anxiety disorder, unspecified 300.00 and Depressive disorder , not elsewhere classified 311 [facility] [address] 28603- 1439 Sep, [facility] [address] 21730- 2714 August, Generalized anxiety disorder 300.02 [facility] [address] 10657- 3957 August, Closed fracture of lateral malleolus 824.2 [facility] [id number] [place] [address] 65202- 0400 Jul, [facility] [address] 49980- 7459 Jul, [facility] [id number] [place] [address] 77025- 1170 Jun, [facility] [id number] [place] [address] 74020- 6906 Jun, [facility] [id number] [place] [address] 14567- 9537 Jun, [facility] [address] 57531- 5361 Jun, [facility] [id number] [place] [address] 30122- 4555 Jun, [facility] [id number] [place] [address] 40977- 2010 Jun, [facility] [place] [facility] [address] [id number] [place] [address]- 2960 May, 2014 [facility] [place] [facility] [address] [id number] [place] [address]- 0436 May, 2014 [facility] [place] [facility] [address] [id number] [place] [address]- 1286 18 May, 2014 [facility] [place] [facility] [address] [id number] [place] [address]- 7516 18 May, 2014 [facility] [place] [facility] [address] [id number] [place] 8726 16 May, 2014 [facility] [place] [facility] [address] [id number] [place] 3456 16 May, 2014 [facility] [place] [facility] [address] [id number] [place] [address]- 2746 13 May, 2014 [facility] [place] [facility] [address] [id number] [place] [address]- 0636 13 May, 2014 [facility] [place] [facility] [address] [id number] [place] [address]- 8513 10 May, 2014 [facility] [place] [facility] [address] [id number] [place] [address]- 2964 10 May, 2014 [facility] [place] [facility] [address] [id number] [place] [address]- 0386 Apr, [facility] [place] [facility] [address] [id number] [place] [address]- 2389 Apr, [facility] [place] [facility] [address] [id number] [place] [address]- 6823 Mar, [facility] [place] [facility] [address] [id number] [place] 1679 Mar, [facility] [place] [facility] [address] [id number] [place] 5083 Mar, [facility] [place] [facility] [address] [id number] [place] [address]- 7175 15 Mar, 2014 [facility] [place] [facility] [address] [id number] [place] [address]- 0958 15 Mar, 2014 [facility] [place] [facility] [address] [id number] [place] [address]- 2746 15 Mar, 2014 [facility] [place] [facility] [address] [id number] [place] [address]- 2703 Mar, [facility] [place] [facility] [address] [id number] [place] [address]- 1332 Feb, [facility] [place] [facility] [address] [id number] [place] [address]- 4461 Feb, [facility] [place] [facility] [address] [id number] [place] [address]- 0701 Feb, [facility] [place] [facility] [address] [id number] [place] [address]- 1458 Jan, [facility] [place] [facility] [address] [id number] [place] [address]- 9007 Jan, [facility] [place] [facility] [address] [id number] [place] [address]- 8849 Jan, [facility] [place] [facility] [address] [id number] [place] [address]- 2142 Jan, [facility] [place] [facility] [address] [id number] [place] [address]- 6374 Jan, [facility] [place] [facility] [address] [id number] [place] [address]- 3234 Jan, [facility] [place] [facility] [address] [id number] [place] [address]- 7254 Jan, [facility] [place] [facility] [address] [id number] [place] [address]- 2940 Jan, [facility] [place] [facility] [address] [id number] [place] [address]- 8829 Jan, [facility] [place] [facility] [address] [id number] [place] [address]- 7355 Jan, [facility] [place] [facility] [address] [id number] [place] [address]- 1118 Nov, [facility] [place] [facility] [address] [id number] [place] [address]- 1452 Nov, [facility] [place] [facility] [address] [id number] [place] [address]- 0331 Nov, [facility] [place] [facility] [address] [id number] [place] [address]- 6402 Oct, [facility] [place] [facility] [address] [id number] [place] [address]- 9628 Oct, [facility] [place] [facility] [address] [id number] [place] [address]- 0387 Oct, [facility] [place] [facility] [address] [id number] [place] [address]- 1244 Oct, [facility] [place] [facility] [address] [id number] [place] [address]- 5199 Oct, [facility] [place] [facility] [address] [id number] [place] [address]- 5363 Oct, [facility] [place] [facility] [address] [id number] [place] [address]- 3287 Oct, [facility] [place] [facility] [address] [id number] [place] [address]- 3017 Oct, [facility] [place] [facility] [address] [id number] [place] [address]- 4915 Oct, [facility] [place] [facility] [address] [id number] [place] [address]- 9623 Sep, [facility] [place] [facility] [address] [id number] [place] [address]- 6592 Sep, [facility] [place] [facility] [address] [id number] [place] [address]- 8003 Sep, [facility] [place] [facility] [address] [id number] [place] [address]- 3849 Sep, [facility] [place] [facility] [address] [id number] [place] [address]- 1482 Sep, [facility] [place] [facility] [address] [id number] [place] [address]- 0936 Sep, [facility] [place] [facility] [address] [id number] [place] [address]- 0936 Sep, [facility] [place] [facility] [address] [id number] [place] [address]- 2483 Sep, [facility] [place] [facility] [address] [id number] [place] [address]- 7761 Sep, [facility] [place] [facility] [address] [id number] [place] [address]- 8234 August, [facility] [place] [facility] [address] [id number] [place] [address]- 6805 August, [facility] [place] [facility] [address] [id number] [place] [address]- 8492 August, [facility] [place] [facility] [address] [id number] [place] [address]- 6675 August, [facility] [place] [facility] [address] [id number] [place] [address]- 1396 August, [facility] [place] [facility] [address] [id number] [place] [address]- 0274 August, [facility] [place] [facility] [address] [id number] [place] [address]- 7696 Jul, [facility] [place] [facility] [address] [id number] [place] [address]- 6021 Jul, [facility] [place] [facility] [address] [id number] [place] [address]- 0311 Jul, [facility] [place] [facility] [address] [id number] [place] [address]- 0637 08 Jul, 2013 [facility] [place] [facility] [address] [id number] [place] [address]- 2466 Jul, [facility] [place] [facility] [address] [id number] [place] [address]- 5246 Jul, [facility] [place] [facility] [address] [id number] [place] [address]- 2763 Jun, [facility] [place] [facility] [address] [id number] [place] [address]- 4200 Jun, [facility] [place] [facility] [address] [id number] [place] [address]- 7586 May, [facility] [place] [facility] [address] [id number] [place] [address]- 0025 May, [facility] [place] [facility] [address] [id number] [place] [address]- 0102 May, [facility] [place] [facility] [address] [id number] [place] [address]- 4277 May, [facility] [place] [facility] [address] [id number] [place] [address]- 6986 Apr, [facility] [place] [facility] [address] [id number] [place] [address]- 6768 Apr, [facility] [place] [facility] [address] [id number] [place] [address]- 1730 Mar, [facility] [place] [facility] [address] [id number] [place] [address]- 1473 Mar, [facility] [place] [facility] [address] [id number] [place] [address]- 3668 Mar, [facility] [place] [facility] [address] [id number] [place] [address]- 6264 Mar, [facility] [place] [facility] [address] [id number], [place] [address]- 5798 Mar, [facility] [place] [facility] [address] [id number] [place] [address]- 2995 Mar, [facility] [place] [facility] [address] [id number], [place] [address]- 2018 Feb, [facility] [place] [facility] [address] [id number] [place] [address]- 2677 Feb, [facility] [place] [facility] [address] [id number], [place] [address]- 2920 Feb, [facility] [place] [facility] [address] [id number] [place] [address]- 7649 Feb, [facility] [place] [facility] [address] [id number] [place] [address]- 0123 Feb, [facility] [place] [facility] [address] [id number], [place] [address]- 8670 Feb, [facility] [place] [facility] [address] [id number] [place] [address]- 7996 Jan, [facility] [place] [facility] [address] [id number] [place] [address]- 4957 Jan, [facility] [place] [facility] [address] [id number] [place] [address]- 9476 Jan, [facility] [place] [facility] [address] [id number], [place] [address]- 5580 Jan, [facility] [place] [facility] [address] [id number], [place] [address]- 6322 08 Jan, 2013 [facility] [place] [facility] [address] [id number], [place] [address]- 7451 Jan, [facility] [place] [facility] [address] [id number][place] 7947 12 Dec, 2012 [facility] [place] [facility] [address] [id number] [place]86 09 Dec, 2012 [facility] [place] [facility] [address] [id number] [place] [address]- 2546 Nov, [facility] [address] [id number] [place] [address]- 8210 Nov, [facility] [address] [id number] [place] [address] 2546 Oct, [facility] [address] [id number] [place] [address]- 1516 Oct, [facility] [address] [id number] [place] [address]- 1434 Oct, [facility] [address] [id number] [place] [address]- 2866 Oct, [facility] [address] [id number] [place] [address]- 9285 Oct, [facility] [address] [id number] [place] [address]- 2959 Oct, [facility] [address] [id number] [place] [address]- 9459 Sep, [facility] [address] [id number] [place] [address]- 9337 Sep, [facility] [address] [id number] [place] [address]- 4415 Sep, [facility] [address] [id number] [place] [address]- 2420 Sep, [facility] [address] [id number] [place] [address]- 7095 August, [facility] [place] [facility] [address] [id number] [place] [address]- 6832 August, [facility] [address] [id number] [place] [address]- 3136 August, [facility] [address] [id number] [place] [address]- 1861 August, [facility] [address] [id number] [place] [address]- 8129 August, [facility] [address] [id number] [place] [address]- 0593 Jul, [facility] [address] [id number] [place] [address]- 9419 Jul, [facility] [address] [id number] [place] [address]- 4771 Jul, [facility] [address] [id number] [place] [address]- 4551 Jul, [facility] [address] [id number] [place] [address]- 6445 Jul, [facility] [address] [id number] [place] [address]- 0652 Jul, [facility] [address] [id number] [place] [address]- 0300 Jul, [facility] [address] [id number] [place] [address]- 4615 Jul, [facility] [address] [id number], [place] [address]- 2171 Jul, [facility] [address] [id number], [place] [address]- 7866 Jul, [facility] [address] [id number] [id number] Jun, [facility] [address] [id number] [place] [address]- 4723 Jun, [facility] [address] [id number] [place] [address]- 4698 Jun, [facility] [address] [id number], [place] [address]- 3295 Jun, [facility] [address] [id number] [place] [address]- 0640 Jun, [facility] [address] [id number] [place] [address]- 4283 May, [facility] [address] [id number] [place] [address]- 8939 May, [facility] [address] [facility] [id number] [place] [address]- 3506 May, [facility] [address] [id number] [place] [address]- 9704 Apr, [facility] [address] [id number] [place] [address]- 1488 Apr, [facility] [address] [id number] [place] [address]- 2913 Apr, [facility] [address] [facility] [id number] [place] [address]- 5656 Apr, [facility] [address] [facility] [id number] [place] [address]- 9154 Apr, [facility] [address] [facility] [id number] [place] [address]- 5032 Apr, [facility] [address] [facility] [id number] [place] [address]- 4860 Mar, [facility] [address] [id number] [place] [address]- 7661 Mar, [facility] [place] [facility] [address] [id number] [place] [address]- 9849 Mar, [facility] [place] [facility] [address] [id number] [place] [address]- 1723 Mar, [facility] [place] [facility] [address] [facility] [id number] [place] [address]- 8290 Feb, [facility] [place] [facility] [address] [facility] [id number] [place] [address]- 3542 Feb, [facility] [place] [facility] [address] [id number] [place] [address]- 9151 Feb, [facility] [place] [facility] [address] [id number] [place] [address] Feb, [facility] [place] [facility] [address] [id number] [place] [address] Feb, [facility] [place] [facility] [address] [id number] [place] [address] Feb, [facility] [place] [facility] [address] [id number] [place] [address] Feb, [facility] [place] [facility] [address] [id number] [place] [address] Feb, [facility] [place] [facility] [address] [facility] [id number] [place] [address] 133[address] Feb, [facility] [place] [facility] [address] [id number] [place] [address] Feb, [facility] [place] [facility] [address] [id number] [place] [address] Feb, [facility] [place] [facility] [address] [id number] [place] [address] 17[address] Feb, [facility] [place] [facility] [address] [facility] [id number] [place] [address] 1984 Feb, [facility] [place] [facility] [address] [id number] [place] [address] Feb, [facility] [place] [facility] [address] [id number] [place] [address] Feb, [facility] [place] [facility] [address] [id number] [place] [address] Feb, [facility] [place] [facility] [address] [id number] [place] [address] Jan, [facility] [place] [facility] [address] [id number] [place] [address] 6415 31 Jan, 2012 [facility] [place] [facility] [address] [id number] [place] [address]- 1776 31 Jan, 2012 [facility] [place] [facility] [address] [id number] [place] [address] 6978 31 Jan, 2012 [facility] [place] [facility] [address] [id number] [place] [address] 3668 30 Jan, 2012 [facility] [place] [facility] [address] [id number] [place] [address] 3541 Jan, [facility] [place] [facility] [address] [id number] [place] [address] 25 Jan, 2012 [facility] [place] [facility] [address] [id number] [place] [address] 16 Jan, 2012 [facility] [place] [facility] [address] [id number] [place] [address]- 5[address] 16 Jan, 2012 [facility] [place] [facility] [address] [id number], [place] [address] 15 Jan, 2012 [facility] [place] [facility] [address] [id number] [place] [address] 4463 15 Jan, 2012 [facility] [place] [facility] [address] [id number], [place] [address] Jan, [facility] [place] [facility] [address] [id number], [place] [address]24 26 Dec, 2011 [facility] [place] [facility] [address] [id number], [place] [address] 26 Sep, 2011 [facility] [place] [facility] [address] [id number] [place] [address] 3091 24 Sep2011 [facility] [place] [facility] [address] [id number], [place] [address] 23 Sep, 2011 [facility] [place] [facility] [address] [id number], [place] [address] 22 Sep, 2011 [facility] [place] [facility] [address] [id number] [place] [address] 6331 21 Sep, 2011 [facility] [place] [facility] [address] [id number] [place] [address] 2546 20 Sep, 2011 [facility] [place] [facility] [address] [id number] [place] [address] 2546 20 Dec, 2011 [facility] [place] [facility] [address] [id number] [place] [address] 2546 07 Sep, 2011 [facility] [place] [facility] [address] [id number] [place] [address] 2546 06 Sep, 2011 [facility] [place] [facility] [address] [id number] [place] [address]- 1166 06 Sep, 2011 [facility] [place] [facility] [address] [id number] [place] [address] 2546 05 Dec, 2011 [facility] [place] [facility] [address] [id number] [place] [address]33 23 Nov, 2011 [facility] [place] [facility] [address] [id number] [place] [address] 17 Nov, 2011 [facility] [place] [facility] [address] [id number] [place] [address] 2626 13 Nov, 2011 [facility] [place] [facility] [address] [id number] [place] [address]- 9427 10 Nov, 2011 [facility] [place] [facility] [address] [id number] [place] [address] 2546 08 Nov, 2011 [facility] [place] [facility] [address] [id number] [place] [address] 2545 Nov, [facility] [place] [facility] [address] [id number] [place] [address]196 Nov, [facility] [place] [facility] [address] [id number] [place] [address]- [address]256 Nov, [facility] [place] [facility] [address] [id number] [place] [address] Oct, [facility] [place] [facility] [address] [id number] [place] [address] Oct, [facility] [place] [facility] [address] [id number] [place] [address] 1258 Oct, [facility] [place] [facility] [address] [id number] [place] [address] Oct, [facility] [place] [facility] [address] [id number] [place] [address] 7277 Oct, [facility] [place] [facility] [address] [id number] [place] [address]247 Oct, [facility] [place] [facility] [address] [id number] [place] [address] 9517 Oct, [facility] [place] [facility] [address] [id number] [place] [address] 7521 Sep, [facility] [place] [facility] [address] [id number] [place] [address]- 2741 Sep, [facility] [place] [facility] [address] [id number] [place] [address] 7994 August, [facility] [place] [facility] [address] [id number] [place] [address] 6314 August, [facility] [place] [facility] [address] [id number] [place] [address] 8364 August, [facility] [place] [facility] [address] [id number] [place] [address] 4843 August, [facility] [place] [facility] [address] [id number] [place] [address] Jul, [facility] [place] [facility] [address] [id number] [place] [address] Jul, [facility] [place] [facility] [address] [id number] [place] [address] Jul, [facility] [place] [facility] [address] [id number] [place] [address] Jul, [facility] [place] [facility] [address] [id number] [place] [address] Jul, [facility] [place] [facility] [address] [id number] [place] [address] Jul, [facility] [place] [facility] [address] [id number] [place] [address] Jul, [facility] [place] [facility] [address] [id number] [place] [address] Jul, [facility] [place] [facility] [address] [id number] [place] [address] Jul, [facility] [place] [facility] [address] [id number] [place] [address] Jun, [facility] [place] [facility] [address] [id number] [place] [address] Jun, [facility] [place] [facility] [address] [id number] [place] [address] 15 Jun, 2011 [facility] [place] [facility] [address] [id number] [place] [address] 14 Jun, 2011 [facility] [place] [facility] [address] [id number] [place] [address] Jun, [facility] [place] [facility] [address] [id number] [place] [address] Jun, [facility] [place] [facility] [address] [id number] [place] [address] Jun, [facility] [place] [facility] [address] [id number] [place] [address] May, [facility] [place] [facility] [address] [id number] [place] [address] 24 May, 2011 [facility] [place] [facility] [address] [id number] [place] [address] 16 May, 2011 [facility] [place] [facility] [address] [id number] [place] [address] 16 May, 2011 [facility] [address] [id number] [place] [address] 03 May, 2011 [facility] [place] [facility] [address] [id number] [place] [address] 27 Apr, 2011 [facility] [place] [facility] [address] [id number] [place] [address] Apr, [facility] [place] [facility] [address] [id number] [place] [address] Apr, [facility] [place] [facility] [address] [id number] [place] [address] Apr, [facility] [place] [facility] [address] [id number] [place] [address] Apr, [facility] [place] [facility] [address] [id number] [place] [address] Mar, [facility] [address] [id number] [place] [address] Mar, [facility] [place] [facility] [address] [id number] [place] [address] Mar, [facility] [place] [facility] [address] [id number] [place] [address] Mar, [facility] [place] [facility] [address] [id number] [place] [address] Mar, [facility] [place] [facility] [address] [id number] [place] [address] Mar, [facility] [place] [facility] [address] [id number] [place] [address] Mar, [facility] [place] [facility] [address] [id number] [place] [address] 11 Feb, 2011 [facility] [place] [facility] [address] [id number] [place] [address] Feb, [facility] [place] [facility] [address] [id number] [place] [address] Feb, [facility] [place] [facility] [address] [id number] [place] [address] Feb, [facility] [place] [facility] [address] [id number] [place] [address] Jan, [facility] [place] [facility] [address] [id number] [place] [address] Jan, [facility] [place] [facility] [address] [id number] [place] [address] Jan, [facility] [place] [facility] [address] [id number] [place] [address] Jan, [facility] [place] [facility] [address] [id number] [place] [address] Nov, [facility] [place] [facility] [address] [id number] [place] [address] Mar, [facility] [place] [facility] [address] [id number] [place] [address] Mar, [facility] [place] [facility] [address] [id number] [place] [address] Mar, [facility] [place] [facility] [address] [id number], [place] [address] Mar, [facility] [place] [facility] [address] [id number], [place] [address] Mar, [facility] [place] [facility] [address] [id number] [place] [address] Mar, [facility] [place] [facility] [address] [id number] [place] [address] Feb, [facility] [place] [facility] [address] [id number] [place] [address] Feb, [facility] [place] [facility] [address] [facility] [id number] [place] [address] Jan, [facility] [address] [facility] [id number] [place] [address] Jan, [facility] [address] [facility] [id number] [place] [address] Jan, IMMUNIZATIONS No Known Immunizations SOCIAL HISTORY [...] 2007 Surgical History Bladder surgery [facility] 03/2016 Hospitalization History Surgeries Only Hospitalization History 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
--- OUTSIDE RECORDS SUMMARY | 2018-05-29 09:08 | XMS REPORT ---
Author Author JORDAN MCDONALD [facility] Address [address] [place] [address] Care Team Providers Care [employer] Operator Name Role Phone JORDAN MCDONALD Unavailable PROBLEMS Type Condition ICD9-CM Code SNG45-NO Code Onset Dates Condition Status SNOMED Code Problem Long-term use of high-risk medication Z79.899 Active 646862193 Problem Abnormal chest CT R93.8 Active 783632401 Problem Low back pain M54.5 Active 263036278 Problem Generalized anxiety disorder F41.1 Active 95775962 Problem Dysthymic disorder F34.1 Active 47171002 Problem Coronary artery disease involving [place] coronary artery of [place] heart, angina presence unspecified I25.10 Active 5403512930705 Problem Depressed F32.9 Active 81190556 Problem Fibromyalgia M79.7 Active 523238590 Problem Hypothyroid E03.9 Active 58025527 Problem Essential (primary) hypertension I10 Active 94363900 Problem Insomnia G47.00 Active 378746087 Problem Vitamin D deficiency E55.9 Active 04029459 Problem Anemia in chronic kidney disease D63.1 Active 918603652220956 Problem Chronic kidney disease, unspecified N18.9 Active 982836271 Problem Body mass index (BMI) of 40.0-44.9 in adult Z68.41 Active 278619590 Problem Stage 3 chronic kidney disease N18.3 Active 698543689 Problem Restless leg G25.81 Active 48000298 Problem Palpitations R00.2 Active 23959791 Problem Asthma J45.909 Active 778897870 Problem Primary osteoarthritis of left knee M17.12 Active 369399860 Problem Bipolar disorder, current episode manic without psychotic features F31.10 Active 782187795 Problem Mood disorder F39 Active 96108497 Problem Degenerative tear of medial meniscus of left knee M23.204 Active 119584350 Problem History of colon polyps Z86.010 Active 007934814 Problem Asthma with acute exacerbation in adult J45.901 Active 056472270 Problem Chronic kidney disease, stage 4 (severe) N18.4 Active 433569059 Problem Functional diarrhea K59.1 Active 22578842 Problem Hypokalemia E87.6 Active 87852034 Problem Mixed stress and urge urinary incontinence N39.46 Active 944799129 Problem History of anemia Z86.2 Active 132354263 Problem Other seasonal allergic rhinitis J30.2 Active 844298066 ALLERGIES No Information ENCOUNTERS Encounter Location Date Diagnosis [place] [address] [address] August, [place] [address] 72479- 5797 Jul, Restless leg G25.81 ; Mixed stress and urge urinary incontinence N39.46 and Fibromyalgia M79.7 [place] [address] 71421- 7212 Jul, Chronic kidney disease, stage 4 (severe) N18.4 [place] [address] 82135- 5121 Jun, Orthostatic hypotension I95.1 ; Chronic kidney disease, stage 4 (severe) N18.4 ; Chest wall discomfort R07.89 and Body mass index (BMI) of 40.0-44.9 in adult Z68.41 [place] [address] 41922- 8973 Jun, [place] [address] 88270- 6300 Jun, Orthostatic hypotension I95.1 [place] [address] 39234- 8041 Jun, [facility] [address] [address]10 Jun, Orthostatic hypotension I95.1 ; Dysuria R30.0 and Acute cystitis without hematuria N30.00 [place] [address] 51489- 8221 Jun, [facility] [address], [place] [address] Jun, Chronic kidney disease, stage 4 (severe) N18.4 [facility] [address] [place] [id number] [place] [address] 44825 2546 Jun, Fibromyalgia M79.7 [facility] [address] [place] [id number] [place] [address] 31749 2546 Jun, [facility] [address] [place] [id number] [place] [address] 95559 2546 Jun, [facility] [address] [place] [id number] [place] [address] 35816- [address] May, [address] R93.8 and Stage 3 chronic kidney disease N18.3 [facility] [address] [place] [id number] [place] [address] 38481- 8907 May, Chronic kidney disease, stage 4 (severe) N18.4 [facility] [id number] [place] [address] 09506 2543 May, Chronic kidney disease, stage 4 (severe) N18.4 [facility] [id number] [place] [address] 83544 [address] May, [address] R93.8 [facility] [id number] [place] [address] 65620 2546 May, [facility] [id number] [place] [address] 04665 2546 May, [facility] [address] [place] [id number] [place] [address] 01351- 2276 May, Generalized anxiety disorder F41.1 and Major depressive disorder, recurrent episode with anxious distress F33.9 [facility] [address], [place] [address] 2546 May, Mood disorder F39 [facility] [address] [address] 4790 Apr, [facility] [id number] [place] [address] 71288- 5783 Apr, Infected skin lesion L08.9 and Muscle strain of right shoulder region, initial encounter S46.911A [facility] [id number] [place] [address] 00853- 1062 Apr, Generalized anxiety disorder F41.1 and Major depressive disorder, recurrent episode with anxious distress F33.9 [facility] [id number] [place] [address] 46336- 4212 Apr, [place] [address] [place] [id number] [place] [address] 31631- 4803 Apr, Recent urinary tract infection Z87.440 and Hypothyroid E03.9 [place] [address] [place] [id number] [place] [address] 12007- 0608 Apr, Generalized anxiety disorder F41.1 and Major depressive disorder, recurrent episode with anxious distress F33.9 [facility] [id number] [place] [address] 97215- 4895 Apr, Recent urinary tract infection Z87.440 [facility] [address], [place] [address] 6677 Mar, [facility] [id number] [place] [address] 52103 -2372 Mar, Dysuria R30.0 ; Acute cystitis without hematuria N30.00 and BMI 40.0-44.9, adult Z68.41 [facility] [id number] [place] [address] 60867- 1376 Mar, [facility] [id number] [place] [address] 97320- 2539 Mar, [facility] [id number] [place] [address] 98895- 9697 Mar, Generalized anxiety disorder F41.1 and Major depressive disorder, recurrent episode with anxious distress F33.9 [facility] [address] [place] [id number] [place] [address] 36010- 0670 Feb, Conjunctivitis, bacterial H10.9 [facility] [address] [place] [id number] [place] [address] 34005- 1439 Feb, [facility] [address] [place] [id number] [place] [address] 45286 -5389 Feb, Conjunctivitis, bacterial H10.9 [facility] [address] [place] [id number] [place] [address] 90817- 6380 Feb, [facility] [address] [place] [id number] [place] [address] 21508 -6308 Feb, Dysuria R30.0 ; Acute cystitis N30.00 and BMI 40.0-44.9, adult Z68.41 [place] [address] 55260- 8416 Feb, [place] [address] [place] [id number] [place] [address] 60913- 3646 Feb, Generalized anxiety disorder F41.1 and Major depressive disorder, recurrent episode with anxious distress F33.9 [place] [address] [place] [id number] [place] [address] 34305- 1743 Feb, Mood disorder F39 and BMI 40.0-44.9, adult Z68.41 [place] [address] [place] [id number] [place] [address] 61968- 2413 Jan, [place] [address] [place] [id number] [place] [address] 65752- 2919 Jan, [place] [address] [place] [id number] [place] [address] 37134- 4175 Jan, Hypothyroid E03.9 [place] [address] [place] [id number] [place] [address] 05650- 5500 Jan, [place] [address] [place] [id number] [place] [address] 54820- 2339 04 Jan, 2017 Chronic kidney disease, unspecified N18.9 ; Hypokalemia E87.6 ; Essential (primary) hypertension I10 ; Fibromyalgia M79.7 ; Coronary artery disease involving [place] coronary artery of [place] heart, angina presence unspecified I25.10 ; Hypothyroid E03.9 and Encounter for immunization Z23 [place] [address] 49378- 1532 Jan, Hypothyroid E03.9 [place] [address] 37102- 4500 Jan, [place] [address] 99700- 1200 28 Dec, 2016 Vitamin D deficiency E55.9 [place] [address] 97822- 0437 28 Dec, 2016 Primary osteoarthritis of left knee M17.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 [place] [address] 19444- 3880 19 Dec, 2016 Fibromyalgia M79.7 [place] [address] 94189- 9744 18 Dec, 2016 Mood disorder F39 [place] [address] 98110- 8298 13 Dec, 2016 [place] [address] 57591- 2680 13 Dec, 2016 Generalized anxiety disorder F41.1 and Major depressive disorder, recurrent episode with anxious distress F33.9 [place] [address] 32413- 0499 11 Dec, 2016 [place] [address] 27115- 0789 08 Dec, 2016 Streptococcal meningitis G00.2 [place] [address] [place] [address]- 1105 07 Dec, 2016 Streptococcal meningitis G00.2 [facility] [address] [place] [id number] [place] [address] 12453- 1651 07 Dec, 2016 [facility] [address] [place] [id number] [place] [address] 18358- 6057 Dec, Streptococcal meningitis G00.2 [facility] [address] [place] [id number] [place] [address] 73370- 4168 Dec, [place] [address] [place] [id number] [place] [address] 85339- 5829 Dec, Major depressive disorder, recurrent episode with anxious distress F33.9 [place] [address] [place] [id number] [place] [address] 07775- 5884 Nov, Fever, unspecified fever cause R50.9 [place] [address] [place] [id number] [place] [address] 17430- 8102 Nov, [place] [address] [place] [id number] [place] [address] 03209- 1637 Nov, Hypothyroid E03.9 [place] [address] [place] [id number] [place] [address] 96541- 7369 Nov, Generalized anxiety disorder F41.1 and Major depressive disorder, recurrent episode with anxious distress F33.9 [facility] [address] [place] [id number] [place] [address] 38230- 9620 Nov, [facility] [address] [place] [address] [id number] Oct, Dental examination Z01.20 [facility] [address] [place] [id number] [place] [address] 46017- 6745 Oct, Generalized anxiety disorder F41.1 and Major depressive disorder, recurrent episode with anxious distress F33.9 [facility] [id number] [place] [address] 34538- 1724 Oct, Chronic kidney disease, stage 4 (severe) N18.4 [place] [id number] [place] [address] 12942- 2923 Oct, [place] [address] [place] [id number] [place] [address] 48791- 7870 Oct, Fibromyalgia M79.7 [place] [address] [place] [id number] [place] [address] 30081- 7537 Oct, [place] [address] [place] [id number] [place] [address] 55601- 7615 Oct, Generalized anxiety disorder F41.1 ; Major depressive disorder, recurrent episode with anxious distress F33.9 and Bipolar disorder, current episode manic without psychotic features F31.10 [place] [address] [place] [id number] [place] [address] 20575- 8299 Sep, [place] [address] [place] [id number] [place] [address] 53910- 1344 Sep, [place] [address] [place] [id number] [place] [address] 50557- 8338 Sep, Vitamin D deficiency E55.9 [place] [address] [place] [id number] [place] [address] 57273- 3744 Sep, Vitamin D deficiency E55.9 [place] [address] [place] [id number] [place] [address] 26340- 5312 Sep, [place] [address] [place] [id number] [place] [address] 45865- 3982 Sep, Chronic kidney disease, stage 4 (severe) N18.4 ; Hypothyroid E03.9 ; Restless leg G25.81 ; Fibromyalgia M79.7 ; Essential ( primary) hypertension I10 ; Vitamin D deficiency E55.9 ; Dyspepsia R10.13 ; Anemia in chronic kidney disease D63.1 ; Chronic kidney disease, unspecified N18.9 ; Coronary artery disease involving [place] coronary artery of [place] heart , angina presence unspecified I25.10 ; Screening breast examination Z12.39 and Low back pain M54.[address] [id number] [address] August, Generalized anxiety disorder F41.1 and Major depressive disorder, recurrent episode with anxious distress F33.9 [place] [address] [place] [id number] [place] [address] 42666- 5631 August, Generalized anxiety disorder F41.1 and Major depressive disorder, recurrent episode with anxious distress F33.9 [place] [address] [place] [id number] [place] [address] 52180- 1438 August, Fibromyalgia M79.7 [place] [address] [place] [id number] [place] [address] 82075- 3357 Jul, Generalized anxiety disorder F41.1 and Major depressive disorder, recurrent episode with anxious distress F33.9 [place] [address] [place] [id number] [place] [address] 15194- 1642 Jul, Fibromyalgia M79.7 [place] [address] [place] [id number] [place] [address] 91160- 3051 Jul, Generalized anxiety disorder F41.1 [place] [address] [place] [id number] [place] [address] 19438- 3654 May, [place] [address] [place] [id number] [place] [address] 71478- 9750 May, Hypothyroid E03.9 [place] [address] [place] [id number] [place] [address] 60726- 4212 May, Chronic kidney disease, stage 4 (severe) N18.4 ; Hypothyroid E03.9 ; Restless leg G25.81 ; Fibromyalgia M79.7 ; Essential ( primary) hypertension I10 ; Vitamin D deficiency E55.9 ; Dyspepsia R10.13 ; Acute non-recurrent maxillary sinusitis J01.00 ; Anemia in chronic kidney disease D63.1 ; Chronic kidney disease, unspecified N18.9 and Coronary artery disease involving [place] coronary artery of [place] heart, angina presence unspecified I25.10 [place] [address] [place] [id number] [place] [address] 57900- 8339 May, Vitamin D deficiency, unspecified E55.9 [facility] [address] [place] [id number] [place] [address] 73324- 1124 May, Generalized anxiety disorder F41.1 and Major depressive disorder, recurrent episode with anxious distress F33.9 [facility] [id number] [place] [address] 65197- 1380 Apr, Pain in right knee M25.561 and Pain in left knee M25.562 [facility] [address] [place] [id number] [place] [address] 58107- 4973 Apr, [facility] [address] [place] [id number] [place] [address] 72429- 6455 Apr, [facility] [address] [place] [id number] [place] [address] 33543- 4483 Apr, [facility] [address] [place] [id number] [place] [address] 98419- 4218 Mar, Generalized anxiety disorder F41.1 and Major depressive disorder, recurrent episode with anxious distress F33.9 [facility] [address] [place] [id number] [place] [address] 44439- 7912 Mar, Generalized anxiety disorder F41.1 and Major depressive disorder, recurrent episode with anxious distress F33.9 [facility] [address] [place] [address] 67130- 8030 Mar, [facility] [address] [place] [id number] [place] [address] 69974- 3890 Mar, [facility] [id number] [place] [address] 50242- 8591 Mar, [facility] [address] [place] [id number] [place] [address] 16607- 7452 Mar, Asthma J45.909 and Fibromyalgia M79.7 [facility] [address] [place] [id number] [place] [address] 92759- 9923 Mar, Chronic kidney disease, stage 4 (severe) N18.4 ; Vitamin D deficiency E55.9 and Essential (primary) hypertension I10 [facility] [address] 58887- 1166 Feb, [facility] [address] [place] [id number] [place] [address] 75989- 2546 Feb, Dysuria R30.0 ; Mixed stress and urge urinary incontinence N39.46 ; Fibromyalgia M79.7 and Chronic kidney disease, stage IV (severe) N18.4 [facility] [address] [place] [id number] [place] [address] 85423- 7856 Feb, Chronic kidney disease, stage 4 (severe) N18.4 [facility] [address] [place] [id number] [place] [address] 83861- 2546 Feb, Chronic kidney disease, stage 4 (severe) N18.4 [facility] [address] [place] [id number] [place] [address] 78532- 5526 Feb, [facility] [address] 26747- 2551 Feb, Vitamin D deficiency, unspecified E55.9 [facility] [address] [place] [id number] [place] [address] 73915- 2546 Jan, [facility] [address] [place] [id number] [place] [address] 51002- 3243 Jan, [facility] [address] [place] [id number] [place] [address] 45538 2546 Dec, [facility] [address] [place] [id number] [place] [address] 98125 2546 Dec, Chronic kidney disease, stage 4 (severe) N18.4 [facility] [address] [place] [id number] [place] [address] 34095 2546 Dec, Dysthymic disorder F34.1 and Generalized anxiety disorder F41.1 [place] [address] [place] [address]- 7925 Dec, [facility] [address] 62207- 7338 Dec, [facility] [address] 72398- 5664 Dec, Dysthymic disorder F34.1 and Generalized anxiety disorder F41.1 [place] [address] 30705- 7057 Dec, Dysuria R30.0 ; Chronic kidney disease, stage 4 (severe) N18.4 ; Hypertension I10 ; Dyspepsia R10.13 ; Yeast dermatitis B37.2 ; Palpitations R00.2 ; Hypothyroid E03.9 ; Functional diarrhea K59.1 and Other seasonal allergic rhinitis J30.2 [facility] [address] 61035 -5482 Dec, [facility] [address] 40414 -6926 Nov, Dysuria R30.0 and Stress incontinence N39.3 [place] [address] 72557- 9921 Nov, [place] [address] 29582- 3834 Nov, [place] [address] 79353- 4455 Nov, Osteoarthritis of knees, bilateral M17.0 [facility] [address] [place] [id number] [place] [address] 42443- 5587 Nov, Dysthymic disorder F34.1 and Generalized anxiety disorder F41.1 [facility] [address] 04133- 2883 Nov, [facility] [address] 72835- 2073 Nov, [place] [address] [place] [id number] [place] [address] 04020- 3608 Nov, Urgency of urination R39.15 [facility] [address] [place] [id number] [place] [address] 36428- 4421 Nov, [facility] [address] [place] [id number] [place] [address] 18619- 8905 Nov, Chronic kidney disease, stage 4 (severe) N18.4 [facility] [address] [place] [id number] [place] [address] 36201- 7384 Oct, Hypertension I10 ; Coronary artery disease involving [place] coronary artery of [place] heart, angina presence unspecified I25.10 ; Palpitations R00.2 ; Hypothyroid E03.9 ; Right foot pain M79.671 ; Functional diarrhea K59.1 and Other seasonal allergic rhinitis J30.2 [place] [address] [place] [id number] [place] [address] 86131- 4009 Oct, Dysthymic disorder F34.1 and Generalized anxiety disorder F41.1 [place] [address] [place] [id number] [place] [address] 44286- 5741 Sep, [place] [address] [place] [id number] [place] [address] 35077- 9825 Sep, [facility] [address] [place] [id number] [place] [address] 14677- 9867 Sep, [facility] [address] [place] [id number] [place] [address] 32745- 4008 Sep, [facility] [address] [place] [id number] [place] [address] 84014- 9430 Sep, [facility] [address] [place] [id number] [place] [address] 11446- 6021 Sep, Dysthymic disorder F34.1 and Generalized anxiety disorder F41.1 [facility] [address] [place] [id number] [place] [address] 75467- 0905 Sep, Asthma with acute exacerbation in adult J45.901 ; Dysuria R30.0 ; Chronic kidney disease, stage 4 (severe) N18.4 and History of anemia Z86.2 [place] [address] 04464- 2363 Sep, Generalized anxiety disorder F41.1 and Dysthymic disorder F34.1 [place] [address] 83928- 5295 August, Screening breast examination Z12.39 and Acute recurrent maxillary sinusitis J01.01 [place] [address] [place] [id number] [place] [address] 51142- 8361 August, Osteoarthritis of knees, bilateral M17.0 [place] [address] 68498- 7299 August, Chronic kidney disease, stage 4 (severe) N18.4 ; Acute non- recurrent maxillary sinusitis J01.00 ; Urinary problem R39.89 ; Bowel habit changes R19.4 ; Functional diarrhea K59.1 and History of colon polyps Z86.010 [place] [address] 25276- 5923 Jul, Dysthymic disorder F34.1 and Generalized anxiety disorder F41.1 [place] [address] [place] [id number] [place] [address] 61248- 0955 Jul, [place] [address] [place] [id number] [place] [address] 87567- 0978 Jul, Dysthymic disorder F34.1 ; Generalized anxiety disorder F41.1 and assisted use of drug Z79.899 [place] [address] [place] [id number] [place] [address] 72154- 1473 Jul, [place] [address] 45285- 6605 Jun, [place] [address] 73115- 1515 Jun, [place] [address] [place] [id number] [place] [address] 83331- 6922 May, [place] [address] 89350- 1643 May, Dysthymic disorder F34.1 and Generalized anxiety disorder F41.1 [place] [address] [address]- 1996 Apr, Kidney disease N28.9 [place] [address] [address]- [address] Apr, Dysthymic disorder F34.1 and Generalized anxiety disorder F41.1 [place] [address] [address]- [address] Apr, Chronic kidney disease, stage 4 (severe) N18.4 [place] [address] [address]- [address] Apr, Generalized anxiety disorder F41.1 ; Major depression, recurrent F33.9 and Sleep disturbance G47.9 [place] [address] [address] [place] [id number] [place] [address]- [address] Mar, Generalized anxiety disorder F41.1 and Dysthymic disorder F34.1 [place] [address] [address] [place] [id number] [place] [address]- [address]67 Mar, Generalized anxiety disorder F41.1 ; Dysthymic disorder F34.1 and Insomnia G47.00 [place] [address] [address] [place] [id number] [place] [address]- [address] Mar, [place] [address] [address]- [address] Mar, [place] [address] [address]- [address] Mar, Osteoarthritis of knees, bilateral M17.0 [place] [address] [address]- [address] Mar, Hypertension I10 ; Hypothyroid E03.9 ; Dysthymic disorder F34.1 ; Chronic kidney disease, stage 4 (severe) N18.4 and Nausea & vomiting R11.2 [place] [address] [place] [id number] [place] [address] 83937- 3812 Mar, Generalized anxiety disorder F41.1 ; Dysthymic disorder F34.1 and Insomnia G47.00 [place] [address] 75323- 6311 Mar, Dehydration E86.0 ; Chronic kidney disease, stage 4 (severe ) N18.4 and Nausea & vomiting R11.2 [facility] [address] [address] -[address] Mar, Gastroenteritis K52.[address] 6[address]61- 4105 Mar, [place] [address] 05972- 6500 Mar, [place] [address] 20338- 1714 Feb, Dysthymic disorder F34.1 and Generalized anxiety disorder F41.1 [place] [id number] [place] [address] 63091- 5561 Jan, UTI (urinary tract infection) N39.0 ; Asthma J45.909 ; Coronary artery disease involving georgetown coronary artery of georgetown heart, angina presence unspecified I25.10 ; Hypertension I10 ; Hypothyroid E03.9 ; Vitamin D deficiency E55.9 ; Insomnia G47.00 ; Palpitations R00.2 ; Depressed F32.9 ; Restless leg G25.81 and Anxiety F41.9 [place] [id number] [place] [address] 17393- 9213 Jan, Dysthymic disorder F34.1 and Generalized anxiety disorder F41.1 [place] [address] 43514- 1472 Jan, [place] [address] [address] [id number] [place] [address] 10476- 4581 Dec, [place] [address] 51938- 5299 Dec, Alkalosis 276.3 ; Chronic kidney disease, Stage IV (severe) 585.4 ; Hyperpotassemia 276.7 ; Secondary hyperparathyroidism, renal 588.81 ; Proteinuria 791.0 ; Unspecified vitamin D deficiency 268.9 ; Anemia in chronic kidney disease 285.21 ; Other and unspecified hyperlipidemia 272.4 ; Hypertension, essential, benign 401.1 and Chronic kidney disease (CKD), stage III (moderate) 585.3 [place] [id number] [place] [address] 62700- 6723 Dec, [place] [address] 77598- 1274 Dec, Depressive disorder, not elsewhere classified 311 and Generalized anxiety disorder 300.02 [place] [address] [id number] [place] [address] 47745- 8983 Dec, [address] 65296- 6668 Dec, [place] [address] [address] [id number] [place] [address] 38819- 7592 Nov, Depressive disorder, not elsewhere classified 311 and Generalized anxiety disorder 300.02 [place] [id number] [place] [address] 08570- 1700 Nov, Arthritis of both knees 716.96 [place] [id number] [place] [address] 51277- 5243 07 Nov, 2014 PAF (paroxysmal atrial fibrillation) 427.31 ; CAD (coronary artery disease) 414.00 ; Chest pain 786.50 and Chronic kidney disease (CKD) stage G4/A1, severely decreased glomerular filtration rate (GFR) between 15-29 mL/min/1.73 square meter and albuminuria creatinine ratio less than 30 mg/g 585.4 [id number] [place] [address] 59304- 5993 Oct, Coronary atherosclerosis of unspecified type of vessel, georgetown or graft 414.00 ; Chronic kidney disease, Stage IV (severe) 585.4 ; Hypertension 401.9 and Edema 782.3 [place] [id number] [place] [address] 50501- 4708 Oct, Depressive disorder, not elsewhere classified 311 and Generalized anxiety disorder 300.02 [place] [id number] [place] [address] 22146- 8826 Oct, Depressive disorder, not elsewhere classified 311 and Generalized anxiety disorder 300.02 [place] [id number] [place] [address] 36779- 3548 Oct, [place] [id number] [place] [address] 55117- 3942 Oct, [address] 30333- 3158 Sep, [place] [id number] [place] [address] 30779- 4831 Sep, Chronic kidney disease, Stage IV (severe) 585.4 [place] [id number] [place] [address] 75980- 0528 Sep, [place] [id number] [place] [address] 89437- 9222 Sep, Coronary atherosclerosis of unspecified type of vessel, georgetown or graft 414.00 ; Hypertension 401.9 ; Edema 782.3 and Hypothyroidism 244.[address] 46751- 8496 Sep, Coronary atherosclerosis of unspecified type of vessel, ge[place] or graft 414.00 ; Hypertension 401.9 ; Fibromyalgia 729.1 ; Edema 782.3 ; Hypothyroidism 244.9 and Anemia 285.[address] 74262- 2771 Sep, Anxiety disorder, unspecified 300.00 and Depressive disorder , not elsewhere classified 311 [facility] [address] [address] 9273 Sep, [facility] [id number] 2476 August, Generalized anxiety disorder 300.02 [facility] [id number] [place] [address] 39531- 8499 August, Closed fracture of lateral malleolus 824.2 [facility] [id number] [place] [address] 95118- 3775 Jul, [facility] [id number] [place] [address] 41278- 8848 Jul, [facility] [id number] [address]- 5363 Jun, [facility] [id number] [place] [address] 19514- 3223 Jun, [facility] [address], [place] [address]- 1317 Jun, [facility] [address], [place] [address]- 4785 Jun, [facility] [address], [place] [address]- 1049 Jun, [facility] [address] 8653 Jun, [facility] [address] 4198 May, [facility] [address]- 8636 May, [facility] [address]- 1772 May, [facility] [id number] [place] [address]- 7126 18 May, 2014 [facility] [place] [facility] [address] [id number] [place] [address] 2546 16 May, 2014 [facility] [place] [facility] [address] [id number] [place] [address] 2546 16 May, 2014 [facility] [place] [facility] [address] [id number] [place] [address] 2546 13 May, 2014 [facility] [place] [facility] [address] [id number] [place] [address] 2546 13 May, 2014 [facility] [place] [facility] [address] [id number] [place] [address] 2546 10 May, 2014 [facility] [place] [facility] [address] [id number] [place] [address]- 2544 10 May, 2014 [facility] [place] [facility] [address] [id number] [place] [address]- 4533 Apr, [facility] [place] [facility] [address] [id number] [place] [address] 2548 Apr, [facility] [place] [facility] [address] [id number] [place] [address]- 2547 Mar, [facility] [place] [facility] [address] [id number] [place] [address] 2546 Mar, [facility] [place] [facility] [address] [id number] [place] [address] 2546 22 Mar, 2014 [facility] [place] [facility] [address] [id number] [place] [address] 2546 15 Mar, 2014 [facility] [place] [facility] [address] [id number] [place] [address] 2546 15 Mar, 2014 [facility] [place] [facility] [address] [id number] [place] [address] 2546 15 Mar, 2014 [facility] [place] [facility] [address] [id number] [place] [address]- 6944 Mar, [facility] [place] [facility] [address] [id number] [place] [address]- 6071 Feb, [facility] [place] [facility] [address] [id number] [place] [address]- 7097 Feb, [facility] [place] [facility] [address] [id number] [place] [address]- 4622 Feb, [facility] [place] [facility] [address] [id number] [place] [address]- 8783 Jan, [facility] [place] [facility] [address] [id number] [place] [address]- 9284 Jan, [facility] [place] [facility] [address] [id number] [place] [address]- 1025 Jan, [facility] [place] [facility] [address] [id number] [place] [address]- 6452 Jan, [facility] [place] [facility] [address] [id number] [place] [address]- 1754 Jan, [facility] [place] [facility] [address] [id number] [place] [address]- 6510 Jan, [facility] [place] [facility] [address] [id number] [place] [address]- 8494 Jan, [facility] [place] [facility] [address] [id number], [place] [address]- 2514 Jan, [facility] [place] [facility] [address] [id number], [place] [address]- 9972 Jan, [facility] [place] [facility] [address] [id number] [place] [address]- 7219 Jan, [facility] [place] [facility] [address] [id number], [place] [address]- 1928 Nov, [facility] [place] [facility] [address] [id number] [place] [address]- 3849 Nov, [facility] [place] [facility] [address] [id number] [place] [address]- 9596 Nov, [facility] [place] [facility] [address] [id number] [place] [address]- 2555 Oct, [facility] [place] [facility] [address] [id number] [place] [address]- 9222 Oct, [facility] [place] [facility] [address] [id number] [place] [address]- 0622 Oct, [facility] [place] [facility] [address] [id number] [place] [address]- 3264 Oct, [facility] [place] [facility] [address] [id number] [place] [address]- 9235 Oct, [facility] [place] [facility] [address] [id number] [place] [address]- 4373 Oct, [facility] [place] [facility] [address] [id number] [place] [address]- 5393 Oct, [facility] [place] [facility] [address] [id number] [place] [address]- 0949 Oct, [facility] [place] [facility] [address] [id number] [place] [address]- 3908 Oct, [facility] [place] [facility] [address] [id number] [place] [address]- 0062 Sep, [facility] [place] [facility] [address] [id number] [place] [address]- 1334 Sep, [facility] [place] [facility] [address] [id number] [place] [address]- 7906 Sep, [facility] [place] [facility] [address] [id number] [place] [address]- 6698 Sep, [facility] [place] [facility] [address] [id number] [place] [address]- 2538 Sep, [facility] [place] [facility] [address] [id number] [place] [address]- 1498 Sep, [facility] [place] [facility] [address] [id number] [place] [address]- 3306 Sep, [facility] [place] [facility] [address] [id number] [place] [address]- 2332 Sep, [facility] [place] [facility] [address] [id number] [place] [address]- 5660 Sep, [facility] [place] [facility] [address] [id number] [place] [address]- 6409 August, [facility] [place] [facility] [address] [id number] [place] [address]- 3020 August, [facility] [place] [facility] [address] [id number] [place] [address]- 8619 August, [facility] [place] [facility] [address] [id number] [place] [address]- 3726 August, [facility] [place] [facility] [address] [id number] [place] [address]- 1908 August, [facility] [place] [facility] [address] [id number] [place] [address]- 7786 August, [facility] [place] [facility] [address] [id number] [place] [address]- 5963 Jul, [facility] [place] [facility] [address] [id number] [place] [address]- 8040 Jul, [facility] [place] [facility] [address] [id number] [place] [address]- 0220 Jul, [facility] [place] [facility] [address] [id number] [place] [address]- 5286 Jul, [facility] [place] [facility] [address] [id number] [place] [address]- 7966 Jul, [facility] [place] [facility] [address] [id number] [place] [address]- 7935 Jul, [facility] [place] [facility] [address] [id number] [place] [address]- 1228 Jun, [facility] [address] [id number] [place] [address]- 9225 Jun, [facility] [place] [facility] [address] [id number] [place] 9176 May, [facility] [place] [facility] [address] [id number] [place] [address]- 4086 May, [facility] [place] [facility] [address] [id number] [place] [address]- 3915 May, [facility] [place] [facility] [address] [id number] [place] [address]- 0679 May, [facility] [place] [facility] [address] [id number] [place] [address]- 3590 Apr, [facility] [address] [facility] [id number] [place] [address]- 3688 Apr, [facility] [place] [facility] [address] [id number] [place] [address]- 0791 Mar, [facility] [place] [facility] [address] [facility] [id number] [place] [address]- 8198 Mar, [facility] [place] [facility] [address] [facility] [id number] [place] [address]- 7880 Mar, [facility] [place] [facility] [address] [facility] [id number] [place] [address]- 9776 Mar, [facility] [place] [facility] [address] [id number] [place] [address]- 2620 Mar, [facility] [place] [facility] [address] [id number] [place] [address]- 6111 Mar, [facility] [place] [facility] [address] [facility] [id number] [place] [address]- 2806 Feb, [facility] [place] [facility] [address] [facility] [id number] [place] [address]- 9348 Feb, [facility] [place] [facility] [address] [id number] [place] [address]- 9207 14 Feb, 2013 [facility] [place] [facility] [address] [id number] [place] [address]- 6938 14 Feb, 2013 [facility] [place] [facility] [address] [id number] [place] [address]- 7646 05 Feb, 2013 [facility] [place] [facility] [address] [id number] [place] [address]- 0218 05 Feb, 2013 [facility] [place] [facility] [address] [id number] [place] [address]- 9982 Jan, [facility] [place] [facility] [address] [id number] [place] 9927 24 Jan, 2013 [facility] [place] [facility] [address] [id number] [place] [address]- 4223 Jan, [facility] [place] [facility] [address] [id number] [place] [address]- 6663 Jan, [facility] [place] [facility] [address] [id number] [place] [address]- 9411 Jan, [facility] [place] [facility] [address] [id number] [place] [address]- 8681 Jan, [facility] [place] [facility] [address] [id number] [place] [address]- 6493 Dec, [facility] [place] [facility] [address] [id number] [place] [address]- 8278 Dec, [facility] [place] [facility] [address] [id number] [place] [address]- 3011 Nov, [facility] [place] [facility] [address] [id number] [place] [address]- 9981 Nov, [facility] [place] [facility] [address] [id number] [place] [address]- 3473 Oct, [facility] [place] [facility] [address] [id number] [place] [address]- 6966 Oct, [facility] [address] [id number] [place] [address]- 4375 Oct, [facility] [place] [facility] [address] [id number] [place] [address]- 5287 Oct, [facility] [address] [id number] [place] [address]- 6198 Oct, [facility] [place] [facility] [address] [id number] [place] [address]- 7860 Oct, [facility] [address] [id number] [place] [address]- 0353 Sep, [facility] [address] [id number] [place] [address]- 4473 Sep, [facility] [address] [id number] [place] [address]- 7816 Sep, [facility] [place] [facility] [address] [id number] [place] [address]- 7162 Sep, [facility] [address] [id number] [place] [address]- 7830 August, [facility] [address] [id number] [place] [address]- 6699 August, [facility] [place] [facility] [address] [id number] [place] [address]- 8245 August, [facility] [place] [facility] [address] [id number], [place] [address]- 5130 August, [facility] [place] [facility] [address] [id number] [place] [address]- 0324 August, [facility] [place] [facility] [address] [id number] [place] [address]- 5218 Jul, [facility] [place] [facility] [address] [id number] [place] [address]- 0664 Jul, [facility] [place] [facility] [address] [id number] [place] [address]- 2020 15 Jul, 2012 [facility] [address] [id number] [place] [address]- 8399 Jul, [facility] [address] [id number] [place] [address]- 4425 Jul, [facility] [address] [id number] [place] [address]- 9106 Jul, [facility] [place] [facility] [address] [id number] [place] [address]- 8284 Jul, [facility] [address] [id number] [place] [address]- 0079 Jul, [facility] [id number] [place] [address]- 1520 Jul, [facility] [id number] [place] [address]- 9880 Jul, [facility] [place] [id number] [id number] Jun, [facility] [address] [id number] [place] [address]- 7821 Jun, [facility] [id number], [place] [address]- 6449 Jun, [facility] [place] [facility] [address] [id number], [place] [address]- 3306 Jun, [facility] [place] [facility] [id number], [place] [address]- 2546 Jun, [facility] [place] [facility] [address] [id number] [place] [address]- 1789 May, [facility] [place] [facility] [address] [id number], [place] [address]- 6536 May, [facility] [place] [facility] [address] [id number], [place] [address]- 2546 May, [facility] [place] [facility] [address] [id number] [place] [address]- 3744 Apr, [facility] [address] [id number] [place] [address]- 7137 Apr, [facility] [place] [facility] [address] [id number] [place] [address]- 5318 Apr, [facility] [place] [facility] [address] [id number] [place] [address]- 9007 Apr, [facility] [place] [facility] [address] [id number] [place] [address]- 8531 Apr, [facility] [place] [facility] [address] [id number] [place] [address]- 9146 Apr, [facility] [address] [id number] [place] [address]- 3896 Mar, [facility] [address] [id number] [place] [address]- 6424 Mar, [facility] [address] [id number] [place] [address] Mar, [facility] [place] [facility] [address] [id number] [place] [address] Mar, [facility] [place] [facility] [address] [id number] [place] [address] Feb, [facility] [place] [facility] [address] [id number] [place] [address] Feb, [facility] [place] [facility] [address] [id number] [place] [address] Feb, [facility] [place] [facility] [address] [id number] [place] [address] Feb, [facility] [place] [facility] [address] [id number] [place] [address] Feb, [facility] [place] [facility] [address] [id number] [place] [address] Feb, [facility] [place] [facility] [address] [id number] [place] [address] Feb, [facility] [place] [facility] [address] [id number] [place] [address] Feb, [facility] [place] [facility] [address] [facility] [id number] [place] [address] Feb, [facility] [place] [facility] [address] [id number], [place] [address] Feb, [facility] [place] [facility] [address] [id number] [place] [address] Feb, [facility] [place] [facility] [address] [facility] [id number], [place] [address] Feb, [facility] [place] [facility] [address] [facility] [id number], [place] [address] Feb, [facility] [place] [facility] [address] [id number], [place] [address] Feb, [facility] [place] [facility] [address] [id number], [place] [address] Feb, [facility] [place] [facility] [address] [facility] [id number], [place] [address] Feb, [facility] [place] [facility] [address] [id number], [place] [address] Jan, [facility] [place] [facility] [address] [id number], [place] [address] Jan, [facility] [place] [facility] [address] [id number], [place] [address] Jan, [facility] [place] [facility] [address] [facility] [id number], [place] [address] Jan, [facility] [place] [facility] [address] [facility] [id number], [place] [address] Jan, [facility] [place] [facility] [address] [id number] [place] [address] 25 Jan, 2012 [facility] [address] [id number] [place] [address] 25 Jan, 2012 [facility] [place] [facility] [address] [id number] [place] [address] 16 Jan, 2012 [facility] [address] [id number] [place] [address] 16 Jan, 2012 [facility] [place] [facility] [address] [id number] [place] [address] 15 Jan, 2012 [facility] [address] [id number] [place] [address] 15 Jan, 2012 [facility] [place] [facility] [address] [id number] [place] [address] Jan, [facility] [place] [facility] [address] [id number] [place] [address] 26 Sep, 2011 [facility] [place] [facility] [address] [id number] [place] [address] 26 Sep, 2011 [facility] [place] [facility] [address] [id number] [place] [address]44 24 Sep, 2011 [facility] [address] [id number] [place] [address]- [address] 23 Sep, 2011 [facility] [place] [facility] [address] [id number] [place] [address] 2546 22 Sep, 2011 [facility] [place] [facility] [address] [id number] [place] [address]48 21 Sep, 2011 [facility] [place] [facility] [address] [id number] [place] [address] 20 Sep, 2011 [facility] [place] [facility] [address] [id number] [place] [address] 2546 20 Sep, 2011 [facility] [place] [facility] [address] [id number] [place] [address] 07 Sep, 2011 [facility] [place] [facility] [address] [id number] [place] [address] 06 Dec, 2011 [facility] [place] [facility] [address] [id number] [place] [address]- [address] 06 Dec, 2011 [facility] [place] [facility] [address] [id number] [place] [address]- [address] 05 Dec, 2011 [facility] [place] [facility] [address] [id number] [place] [address]- [address] Nov, [facility] [place] [facility] [address] [id number] [place] [address] Nov, [facility] [place] [facility] [address] [id number] [place] [address]- [address] Nov, [facility] [place] [facility] [address] [id number] [place] [address]- [address] Nov, [facility] [place] [facility] [address] [id number] [place] [address] Nov, [facility] [place] [facility] [address] [id number] [place] [address]- [address] Nov, [facility] [place] [facility] [address] [id number] [place] [address]- [address] Nov, [facility] [place] [facility] [address] [id number] [place] [address]- [address] Nov, [facility] [place] [facility] [address] [id number] [place] [address]- [address] Oct, [facility] [place] [facility] [address] [id number] [place] [address]- [address] Oct, [facility] [place] [facility] [address] [id number] [place] [address]- [address] Oct, [facility] [place] [facility] [address] [id number] [place] [address]- [address] Oct, [facility] [place] [facility] [address] [id number] [place] [address]- [address] Oct, [facility] [address] [id number] [place] [address]- [address] Oct, [facility] [place] [facility] [address] [id number] [id number] [address] Oct, [facility] [place] [facility] [address] [id number] [place] [address] Sep, [facility] [place] [facility] [address] [id number] [place] [address] Sep, [facility] [place] [facility] [address] [id number] [place] [address] August, [facility] [place] [facility] [address] [id number] [place] [address] August, [facility] [address] [id number] [place] [address] August, [facility] [place] [facility] [address] [id number] [place] [address] August, [facility] [place] [facility] [address] [id number] [place] [address] Jul, [facility] [place] [facility] [address] [id number] [place] [address] Jul, [facility] [place] [facility] [address] [id number] [place] [address] Jul, [facility] [place] [facility] [address] [id number] [place] [address] Jul, [facility] [place] [facility] [address] [id number] [place] [address] Jul, [facility] [place] [facility] [address] [id number] [place] [address] Jul, [facility] [place] [facility] [address] [id number] [place] [address] Jul, [facility] [place] [facility] [address] [id number] [place] [address] 02 Jul, 2011 [facility] [place] [facility] [address] [id number] [place] [address] Jul, [facility] [place] [facility] [address] [id number] [place] [address] 23 Jun, 2011 [facility] [place] [facility] [address] [id number] [place] [address] 19 Jun, 2011 [facility] [place] [facility] [address] [id number] [place] [address] 15 Jun, 2011 [facility] [place] [facility] [address] [id number] [place] [address] 14 Jun, 2011 [facility] [place] [facility] [address] [facility] [id number] [place] [address] 12 Jun, 2011 [facility] [place] [facility] [address] [id number] [place] [address] Jun, [facility] [address] [id number] [place] [address] Jun, [facility] [place] [facility] [address] [id number] [place] [address] 25 May, 2011 [facility] [place] [facility] [address] [facility] [id number] [place] [address] 24 May, 2011 [facility] [place] [facility] [address] [id number] [place] [address] 16 May, 2011 [facility] [place] [facility] [address] [id number] [place] [address] 16 May, 2011 [facility] [place] [facility] [address] [id number] [place] [address] 03 May, 2011 [facility] [place] [facility] [address] [id number] [place] [address] Apr, [facility] [place] [facility] [address] [id number] [place] [address] Apr, [facility] [place] [facility] [address] [id number] [place] [address] Apr, [facility] [place] [facility] [address] [id number] [place] [address] Apr, [facility] [place] [facility] [address] [id number] [place] [address] Apr, [facility] [place] [facility] [address] [id number] [place] [address] Mar, [facility] [place] [facility] [address] [id number] [place] [address] Mar, [facility] [place] [facility] [address] [id number] [place] [address] Mar, [facility] [place] [facility] [address] [id number] [place] [address] Mar, [facility] [place] [facility] [address] [id number] [place] [address] Mar, [facility] [place] [facility] [address] [id number] [place] [address] Mar, [facility] [place] [facility] [address] [id number] [place] [address] Mar, [facility] [place] [facility] [address] [id number], [place] [address] Feb, [facility] [place] [facility] [address] [id number], [place] [address] Feb, [facility] [place] [facility] [address] [id number] [place] [address]80 Feb, [facility] [place] [facility] [address] [id number] [place] [address] Feb, [facility] [place] [facility] [address] [id number] [place] [address] Jan, [facility] [place] [facility] [address], [place] [address] Jan, [facility] [address] [facility] [id number], [place] [address] Jan, [facility] [address] [facility] [id number] [address] Jan, [facility] [address], [place] [address] Nov, [facility] [address] [facility] [id number], [place] [address] Mar, [facility] [id number] [place] [address]- [address] Mar, [facility] [id number], [place] [address] Mar, [facility] [id number] [place] [address] Mar, [facility] [address], [place] [address] Mar, [facility] [address], [place] [address] Mar, [facility] [address], [place] [address] Feb, [facility] [address], [place] [address] Feb, [facility] [address] [id number] [address] Jan, [facility] [address], [place] [address] Jan, [facility] [address], [place] [address] Jan, IMMUNIZATIONS No Known Immunizations SOCIAL HISTORY Never Assessed REASON FOR VISIT appointment PLAN OF CARE VITAL SIGNS MEDICATIONS Unknown [...] History Bladder surgery [facility] 03/2016 Hospitalization History Surgeries Only Hospitalization History 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
--- OUTSIDE RECORDS SUMMARY | 2018-05-29 09:09 | XMS REPORT ---
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 Name Role Phone ZABRINA Moreau Unavailable PROBLEMS Type Condition ICD9-CM Code HCK33-EQ Code Onset Dates Condition Status SNOMED Code Problem Abnormal chest CT R93.8 Active 621076074 Problem Long-term use of high-risk medication Z79.899 Active 851630721 Problem Low back pain M54.5 Active 947121127 Problem Generalized anxiety disorder F41.1 Active 87094712 Problem Dysthymic disorder F34.1 Active 20566619 Problem Coronary artery disease involving [place] coronary artery of [place] heart, angina presence unspecified I25.10 Active 2564003801139 Problem Mixed stress and urge urinary incontinence N39.46 Active 556942213 Problem Depressed F32.9 Active 94441644 Problem Fibromyalgia M79.7 Active 901245361 Problem Hypothyroid E03.9 Active 35403961 Problem Essential (primary) hypertension I10 Active 10818569 Problem Chronic kidney disease, unspecified N18.9 Active 821005121 Problem Vitamin D deficiency E55.9 Active 87233950 Problem Stage 3 chronic kidney disease N18.3 Active 654978689 Problem Mood disorder F39 Active 88940869 Problem Palpitations R00.2 Active 03318771 Problem Asthma J45.909 Active 577185661 Problem Insomnia G47.00 Active 911901826 Problem Bipolar disorder, current episode manic without psychotic features F31.10 Active 642045725 Problem Anemia in chronic kidney disease D63.1 Active 724400776023597 Problem Degenerative tear of medial meniscus of left knee M23.204 Active 114412091 Problem Primary osteoarthritis of left knee M17.12 Active 236286291 Problem Functional diarrhea K59.1 Active 18793586 Problem History of colon polyps Z86.010 Active 091207488 Problem Restless leg G25.81 Active 95681019 Problem Chronic kidney disease, stage 4 (severe) N18.4 Active 984916452 Problem Other seasonal allergic rhinitis J30.2 Active 080856443 Problem Hypokalemia E87.6 Active 16038811 Problem Asthma with acute exacerbation in adult J45.901 Active 755909717 Problem History of anemia Z86.2 Active 610214085 ALLERGIES No Information ENCOUNTERS Encounter Location Date Diagnosis [facility] [id number] [place] [address] 12234- 4883 Jun, [facility] [address] 20384- 8806 Jun, [facility] [address] 92340- 9675 Jun, Orthostatic hypotension I95.1 [facility] [address] 26189- 5925 Jun, [facility] [address] 55607 -3205 Jun, Orthostatic hypotension I95.1 ; Dysuria R30.0 and Acute cystitis without hematuria N30.00 [facility] [id number] [place] [address] 77517- 4824 Jun, [facility] [address] 36959- 8804 Jun, Chronic kidney disease, stage 4 (severe) N18.4 [facility] [id number] [place] [address] 92218- 5454 Jun, Fibromyalgia M79.7 [facility] [id number] [place] [address] 48773- 2687 Jun, [facility] [address] 61464- 2695 Jun, [facility] [id number] [place] [address] 21295- [address] May, [address] R93.8 and Stage 3 chronic kidney disease N18.3 [facility] [address] [address] May, Chronic kidney disease, stage 4 (severe) N18.4 [facility] [id number] [place] [address] 49188- 8869 May, Chronic kidney disease, stage 4 (severe) N18.4 [facility] [id number] [place] [address] 57102- [address] May, [address] R93.8 [facility] [id number] [place] [address] 18113- 6697 May, [facility] [id number] [place] [address] 24907- 3003 May, [facility] [id number] [place] [address] 07812- 2472 May, Generalized anxiety disorder F41.1 and Major depressive disorder, recurrent episode with anxious distress F33.9 [facility] [id number] [place] [address] 34597- 5837 May, Mood disorder F39 [facility] [id number] [place] [address] 46129- 7996 Apr, [facility] [id number] [place] [address] 22216- 6580 Apr, Infected skin lesion L08.9 and Muscle strain of right shoulder region, initial encounter S46.911A [facility] [address] [address] 5927 Apr, Generalized anxiety disorder F41.1 and Major depressive disorder, recurrent episode with anxious distress F33.9 [facility] [id number] [place] [address] 50754- 6588 Apr, [facility] [id number] [place] [address] 16347- 3097 Apr, Recent urinary tract infection Z87.440 and Hypothyroid E03.9 [facility] [address] [place] [address] 75254- 1876 Apr, Generalized anxiety disorder F41.1 and Major depressive disorder, recurrent episode with anxious distress F33.9 [facility] [id number] [place] [address] 49322- 1244 Apr, Recent urinary tract infection Z87.440 [facility] [id number] [place] [address] 84386- 1079 Mar, [facility] [id number] [place] [address] 74731 -8803 Mar, Dysuria R30.0 ; Acute cystitis without hematuria N30.00 and BMI 40.0-44.9, adult Z68.41 [facility] [id number] [place] [address] 91316- 7724 14 Mar, 2017 [facility] [id number] [place] [address] 37987- 6838 Mar, [facility] [id number] [place] [address] 02976- 8056 Mar, Generalized anxiety disorder F41.1 and Major depressive disorder, recurrent episode with anxious distress F33.9 [facility] [address] [address]- 8[address] Feb, Conjunctivitis, bacterial H10.9 [facility] [id number] [place] [address] 58471- 2594 Feb, [facility] [id number] [place] [address] 08274 -0640 Feb, Conjunctivitis, bacterial H10.9 [facility] [id number] [place] [address] 52015- 6333 15 Feb, 2017 [facility] [id number] [place] [address] 70753 -4905 10 Feb, 2017 Dysuria R30.0 ; Acute cystitis N30.00 and BMI 40.0-44.9, adult Z68.41 [facility] [id number] [place] [address] 34188- 4332 Feb, [facility] [id number] [place] [address] 14908- 6085 Feb, Generalized anxiety disorder F41.1 and Major depressive disorder, recurrent episode with anxious distress F33.9 [facility] [address] 29385- 7768 Feb, Mood disorder F39 and BMI 40.0-44.9, adult Z68.41 [facility] [id number] [place] [address] 20949- 6167 Jan, [facility] [id number] [place] [address] 15540- 0105 Jan, [facility] [address] 54367- 2452 Jan, Hypothyroid E03.9 [facility] [id number] [place] [address] 42043- 3281 Jan, [facility] [id number] [place] [address] 90623- 4250 Jan, Chronic kidney disease, unspecified N18.9 ; Hypokalemia E87.6 ; Essential (primary) hypertension I10 ; Fibromyalgia M79.7 ; Coronary artery disease involving [place] coronary artery of [place] heart, angina presence unspecified I25.10 ; Hypothyroid E03.9 and Encounter for immunization Z23 [facility] [id number] [place] [address] 44952- 3786 Jan, Hypothyroid E03.9 [facility] [id number] [place] [address] 86242- 0494 Jan, [facility] [id number] [place] [address] 16258- 2248 Dec, Vitamin D deficiency E55.9 [facility] [address] [place] [address]- 8555 28 Dec, 2016 Primary osteoarthritis of left knee M17.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 [facility] [id number] [place] [address] 96759- 0014 19 Dec, 2016 Fibromyalgia M79.7 [facility] [id number] [place] [address] 50472- 8956 18 Dec, 2016 Mood disorder F39 [facility] [id number] [place] [address] 56444 2543 13 Dec, 2016 [facility] [id number] [place] [address] 97560- 7023 13 Dec, 2016 Generalized anxiety disorder F41.1 and Major depressive disorder, recurrent episode with anxious distress F33.9 [facility] [address] [place] [address] 91737- 7093 11 Dec, 2016 [place] [address] [place] [address] 86985- 2951 08 Dec, 2016 Streptococcal meningitis G00.2 [facility] [id number] [place] [address] 93056- 6912 07 Dec, 2016 Streptococcal meningitis G00.2 [facility] [id number] [place] [address] 26960 2547 07 Dec, 2016 [facility] [id number] [place] [address] 18887 2545 06 Dec, 2016 Streptococcal meningitis G00.2 [facility] [address] [address] 2544 06 Dec, 2016 [facility] [id number] [place] [address] 47102- 2541 Dec, Major depressive disorder, recurrent episode with anxious distress F33.9 [facility] [address] [address]- 6574 Nov, Fever, unspecified fever cause R50.9 [facility] [address] [address]- 6645 Nov, [facility] [id number] [place] [address] 23115- 3343 Nov, Hypothyroid E03.9 [facility] [address] [address]- 9099 Nov, Generalized anxiety disorder F41.1 and Major depressive disorder, recurrent episode with anxious distress F33.9 [facility] [id number] [place] [address] 87132- 4020 Nov, [facility] [id number] [place] [address] [id number] Oct, Dental examination Z01.20 [facility] [id number] [place] [address] 77222- 6009 Oct, Generalized anxiety disorder F41.1 and Major depressive disorder, recurrent episode with anxious distress F33.9 [facility] [id number] [place] [address] 44273- 8533 Oct, Chronic kidney disease, stage 4 (severe) N18.4 [facility] [id number] [place] [address] 22983- 6082 Oct, [facility] [address] [address]- 6588 Oct, Fibromyalgia M79.7 [facility] [address] [address]- 5336 Oct, [facility] [address] [address]- 9721 Oct, Generalized anxiety disorder F41.1 ; Major depressive disorder, recurrent episode with anxious distress F33.9 and Bipolar disorder, current episode manic without psychotic features F31.10 [facility] [address] [address]- 4113 Sep, [facility] [address], [place] [address]- 3778 Sep, [address] [id number] [place] [address] 68739- 8377 Sep, Vitamin D deficiency E55.9 [facility] [facility] [id number] [place] [address] 90452- 0593 14 Sep, 2016 Vitamin D deficiency E55.9 [facility] [id number] [place] [address] 16919- 9988 Sep, [facility] [place] [id number] [place] [address] 72877- 0085 Sep, Chronic kidney disease, stage 4 (severe) N18.4 ; Hypothyroid E03.9 ; Restless leg G25.81 ; Fibromyalgia M79.7 ; Essential ( primary) hypertension I10 ; Vitamin D deficiency E55.9 ; Dyspepsia R10.13 ; Anemia in chronic kidney disease D63.1 ; Chronic kidney disease, unspecified N18.9 ; Coronary artery disease involving [place] coronary artery of [place] heart , angina presence unspecified I25.10 ; Screening breast examination Z12.39 and Low back pain M54.5 [facility] [id number] [place] [address] 62794- 4258 August, Generalized anxiety disorder F41.1 and Major depressive disorder, recurrent episode with anxious distress F33.9 [facility] [place] [address] [place] [address] 98062- 1618 August, Generalized anxiety disorder F41.1 and Major depressive disorder, recurrent episode with anxious distress F33.9 [facility] [address] [address]- 2814 August, Fibromyalgia M79.7 [facility] [id number] [place] [address] 57652- 7650 Jul, Generalized anxiety disorder F41.1 and Major depressive disorder, recurrent episode with anxious distress F33.9 [facility] [id number] [place] [address] 28007- 1882 Jul, Fibromyalgia M79.7 [facility] [id number] [place] [address] 36631- 2561 Jul, Generalized anxiety disorder F41.1 [facility] [id number] [place] [address] 47776- 5534 May, [facility] [address] 69132- 0056 May, Hypothyroid E03.9 [facility] [id number] [place] [address] 71884- 3531 May, Chronic kidney disease, stage 4 (severe) N18.4 ; Hypothyroid E03.9 ; Restless leg G25.81 ; Fibromyalgia M79.7 ; Essential ( primary) hypertension I10 ; Vitamin D deficiency E55.9 ; Dyspepsia R10.13 ; Acute non-recurrent maxillary sinusitis J01.00 ; Anemia in chronic kidney disease D63.1 ; Chronic kidney disease, unspecified N18.9 and Coronary artery disease involving [place] coronary artery of [place] heart, angina presence unspecified I25.10 [facility] [id number] [place] [address] 55707- 0414 May, Vitamin D deficiency, unspecified E55.9 [facility] [id number] [place] [address] 86486- 5837 May, Generalized anxiety disorder F41.1 and Major depressive disorder, recurrent episode with anxious distress F33.9 [facility] [id number] [place] [address] 95051- 7610 Apr, Pain in right knee M25.561 and Pain in left knee M25.562 [facility] [id number] [place] [address] 68800- 7915 Apr, [facility] [id number] [place] [address] 00171- 0259 Apr, [facility] [address] 31222- 5296 Apr, [facility] [id number] [place] [address] 65996- 9398 Mar, Generalized anxiety disorder F41.1 and Major depressive disorder, recurrent episode with anxious distress F33.9 [facility] [id number] [place] [address] 23668- 1387 Mar, Generalized anxiety disorder F41.1 and Major depressive disorder, recurrent episode with anxious distress F33.9 [facility] [id number] [place] [address] 24367- 3683 Mar, [facility] [address] 97493- 1455 Mar, [facility] [id number] [place] [address] 84844- 3570 Mar, [facility] [address] 18194- 4010 Mar, Asthma J45.909 and Fibromyalgia M79.7 [facility] [id number] [place] [address] 96644- 7576 Mar, Chronic kidney disease, stage 4 (severe) N18.4 ; Vitamin D deficiency E55.9 and Essential (primary) hypertension I10 [facility] [id number] [place] [address] 23011- 2043 Feb, [facility] [id number] [place] [address] 01698- 4169 Feb, Dysuria R30.0 ; Mixed stress and urge urinary incontinence N39.46 ; Fibromyalgia M79.7 and Chronic kidney disease, stage IV (severe) N18.4 [facility] [id number] [place] [address] 12507- 6180 Feb, Chronic kidney disease, stage 4 (severe) N18.4 [facility] [id number] [place] [address] 10268- 2981 Feb, Chronic kidney disease, stage 4 (severe) N18.4 [facility] [id number] [place] [address] 97357- 0588 Feb, [facility] [id number] [place] [address] 32393- 1447 Feb, Vitamin D deficiency, unspecified E55.9 [facility] [id number] [place] [address] 82591- 9884 Jan, [facility] [id number] [place] [address] 41200- 0304 Jan, [facility] [id number] [place] [address] 65326- 9821 Dec, [facility] [id number] [place] [address] 01646- 9793 Dec, Chronic kidney disease, stage 4 (severe) N18.4 [facility] [id number] [place] [address] 53785- 5622 Dec, Dysthymic disorder F34.1 and Generalized anxiety disorder F41.1 [facility] [id number] [place] [address] 36263- 3419 Dec, [facility] [id number] [place] [address] 47496- 9798 Dec, [facility] [id number] [place] [address] 89844- 2357 Dec, Dysthymic disorder F34.1 and Generalized anxiety disorder F41.1 [facility] [id number] [place] [address] 03444- 3024 Dec, Dysuria R30.0 ; Chronic kidney disease, stage 4 (severe) N18.4 ; Hypertension I10 ; Dyspepsia R10.13 ; Yeast dermatitis B37.2 ; Palpitations R00.2 ; Hypothyroid E03.9 ; Functional diarrhea K59.1 and Other seasonal allergic rhinitis J30.2 [facility] [id number] [place] [address] 36594 -6595 Dec, [facility] [id number] [place] [address] 58478 -8012 Nov, Dysuria R30.0 and Stress incontinence N39.3 [facility] [address] 01568- 4564 Nov, [facility] [address] 71352- 6007 Nov, [facility] [address] 34598- 0879 Nov, Osteoarthritis of knees, bilateral M17.0 [place] [address] 14259- 3550 Nov, Dysthymic disorder F34.1 and Generalized anxiety disorder F41.1 [place] [address] 47613- 7299 Nov, [place] [address] 59324- 7010 Nov, [place] [address] 05781- 9950 Nov, Urgency of urination R39.15 [place] [address] 50130- 8906 Nov, [place] [address] 44045- 8113 Nov, Chronic kidney disease, stage 4 (severe) N18.4 [place] [address] 44470- 6609 Oct, Hypertension I10 ; Coronary artery disease involving [place] coronary artery of [place] heart, angina presence unspecified I25.10 ; Palpitations R00.2 ; Hypothyroid E03.9 ; Right foot pain M79.671 ; Functional diarrhea K59.1 and Other seasonal allergic rhinitis J30.2 [place] [address] [address]- 7005 Oct, Dysthymic disorder F34.1 and Generalized anxiety disorder F41.1 [facility] [address] [address]- 7540 Sep, [facility] [address] [address]- 1628 Sep, [facility] [id number] [place] [address] 05542- 6086 Sep, [facility] [address] [place] [address] 49442- 9920 Sep, [facility] [address] [place] [address] 31338- 4443 Sep, [facility] [address] [place] [address] 98935- 4807 Sep, Dysthymic disorder F34.1 and Generalized anxiety disorder F41.1 [facility] [address] [address]- 6469 16 Sep, 2015 Asthma with acute exacerbation in adult J45.901 ; Dysuria R30.0 ; Chronic kidney disease, stage 4 (severe) N18.4 and History of anemia Z86.2 [facility] [address] [address]- 4134 Sep, Generalized anxiety disorder F41.1 and Dysthymic disorder F34.1 [facility] [address] [address]- 7462 August, Screening breast examination Z12.39 and Acute recurrent maxillary sinusitis J01.01 [facility] [id number] [place] [address] 88879- 3725 August, Osteoarthritis of knees, bilateral M17.0 [facility] [address] [address]- 7619 August, Chronic kidney disease, stage 4 (severe) N18.4 ; Acute non- recurrent maxillary sinusitis J01.00 ; Urinary problem R39.89 ; Bowel habit changes R19.4 ; Functional diarrhea K59.1 and History of colon polyps Z86.010 [facility] [id number] [place] [address] 85964- 3456 29 Jul, 2015 Dysthymic disorder F34.1 and Generalized anxiety disorder F41.1 [facility] [address] 33660- 9158 Jul, [facility] [facility] [id number] [place] [address] 05376- 8476 18 Jul, 2015 Dysthymic disorder F34.1 ; Generalized anxiety disorder F41.1 and snf use of drug Z79.899 [facility] [id number] [place] [address] 34551- 8084 Jul, [facility] [address] 50111- 5398 Jun, [facility] [id number] [place] [address] 43118- 2836 Jun, [facility] [id number] [place] [address] 04947- 4050 May, [facility] [id number] [place] [address] 39641- 7151 May, Dysthymic disorder F34.1 and Generalized anxiety disorder F41.1 [facility] [id number] [place] [address] 41421- 0744 Apr, Kidney disease N28.9 [facility] [id number] [place] [address] 53666- 6692 Apr, Generalized anxiety disorder F41.1 and Dysthymic disorder F34.1 [facility] [id number] [place] [address] 29900- 5541 Apr, Chronic kidney disease, stage 4 (severe) N18.4 [facility] [id number] [place] [address] 15542- 4446 Apr, Generalized anxiety disorder F41.1 ; Major depression, recurrent F33.9 and Sleep disturbance G47.9 [facility] [id number] [place] [address] [id number]- [id number] Mar, Generalized anxiety disorder F41.1 and Dysthymic disorder F34.1 [facility] [address] [address] Mar, Generalized anxiety disorder F41.1 ; Dysthymic disorder F34.1 and Insomnia G47.00 [facility] [address] [address]- [address] Mar, [place] [place] [address] [address]- [address] Mar, [facility] [address] [address]- [address] Mar, Osteoarthritis of knees, bilateral M17.0 [facility] [id number] [place] [address] 60[address]- 2859 Mar, Hypertension I10 ; Hypothyroid E03.9 ; Dysthymic disorder F34.1 ; Chronic kidney disease, stage 4 (severe) N18.4 and Nausea & vomiting R11.2 [facility] [id number] [place] [address]- 4766 Mar, Generalized anxiety disorder F41.1 ; Dysthymic disorder F34.1 and Insomnia G47.00 [facility] [id number] [place] [address] 69700- 3469 Mar, Dehydration E86.0 ; Chronic kidney disease, stage 4 (severe ) N18.4 and Nausea & vomiting R11.2 [facility] [id number] [place] [address] 32876 -2973 Mar, Gastroenteritis K52.9 [facility] [address] [address]19- 8684 Mar, [id number] [place] [address] 57546- 8016 Mar, [id number] [place] [address] 932537- 0335 Feb, Dysthymic disorder F34.1 and Generalized anxiety disorder F41.[address] 9[address]78- 5743 Jan, UTI (urinary tract infection) N39.0 ; Asthma J45.909 ; Coronary artery disease involving [place] coronary artery of [place] heart, angina presence unspecified I25.10 ; Hypertension I10 ; Hypothyroid E03.9 ; Vitamin D deficiency E55.9 ; Insomnia G47.00 ; Palpitations R00.2 ; Depressed F32.9 ; Restless leg G25.81 and Anxiety F41.9 [id number] [place] [address] 28043- 8123 Jan, Dysthymic disorder F34.1 and Generalized anxiety disorder F41.1 [id number] [place] [address] 99916- 8387 Jan, [id number] [place] [address] 92044- 9275 Dec, [id number] [place] [address] 00742- 5203 Dec, Alkalosis 276.3 ; Chronic kidney disease, Stage IV (severe) 585.4 ; Hyperpotassemia 276.7 ; Secondary hyperparathyroidism, renal 588.81 ; Proteinuria 791.0 ; Unspecified vitamin D deficiency 268.9 ; Anemia in chronic kidney disease 285.21 ; Other and unspecified hyperlipidemia 272.4 ; Hypertension, essential, benign 401.1 and Chronic kidney disease (CKD), stage III (moderate) 585.3 [id number] [place] [address] 864527- 5993 16 Dec, 2014 [id number] [place] [address] 32495- 9520 Dec, Depressive disorder, not elsewhere classified 311 and Generalized anxiety disorder 300.02 [place] [id number] [place] [address] 74914- 2638 Dec, [place] [id number] [place] [address] 41043- 2330 Dec, [address] [address] 80040- 9796 Nov, Depressive disorder, not elsewhere classified 311 and Generalized anxiety disorder 300.02 [id number] [place] [address] 17978- 7337 Nov, Arthritis of both knees 716.96 [id number] [place] [address] 32637- 8691 Nov, PAF (paroxysmal atrial fibrillation) 427.31 ; CAD (coronary artery disease) 414.00 ; Chest pain 786.50 and Chronic kidney disease (CKD) stage G4/A1, severely decreased glomerular filtration rate (GFR) between 15-29 mL/min/1.73 square meter and albuminuria creatinine ratio less than 30 mg/g 585.4 [id number] [place] [address] 94033- 9395 Oct, Coronary atherosclerosis of unspecified type of vessel, [place]scar[place] or graft 414.00 ; Chronic kidney disease, Stage IV (severe) 585.4 ; Hypertension 401.9 and Edema 782.3 [id number] [place] [address] 67231- 7594 Oct, Depressive disorder, not elsewhere classified 311 and Generalized anxiety disorder 300.02 [place] [id number] [place] [address] 61212- 6884 Oct, Depressive disorder, not elsewhere classified 311 and Generalized anxiety disorder 300.02 [place] [id number] [place] [address] 44905- 7358 Oct, [place] [id number] [place] [address] 20095- 9914 Oct, [facility] [id number] [place] [address] 49823- 6237 Sep, [facility] [id number] [place] [address] 04987- 4179 Sep, Chronic kidney disease, Stage IV (severe) 585.4 [place] [id number] [place] [address] 86318- 4625 Sep, [facility] [id number] [place] [address] 31330- 3842 Sep, Coronary atherosclerosis of unspecified type of vessel, [place]scar[place] or graft 414.00 ; Hypertension 401.9 ; Edema 782.3 and Hypothyroidism 244.9 [id number] [place] [address] 62719- 3884 Sep, Coronary atherosclerosis of unspecified type of vessel, [place] or graft 414.00 ; Hypertension 401.9 ; Fibromyalgia 729.1 ; Edema 782.3 ; Hypothyroidism 244.9 and Anemia 285.9 [place] [id number] [place] [address] 36862- 6825 Sep, Anxiety disorder, unspecified 300.00 and Depressive disorder , not elsewhere classified 311 [id number] [place] [address] 40202- 6505 Sep, [place] [id number] [place] [address] 03970- 6439 August, Generalized anxiety disorder 300.02 [place] [id number] [place] [address] 89779- 6657 August, Closed fracture of lateral malleolus 824.2 [place] [id number] [place] [address] 72305- 3405 Jul, [place] [id number] [place] [address] 99873- 4076 Jul, [facility] [id number] [place] [address] 42603- 2167 Jun, 2014 [facility] [place] [facility] [address] [id number] [place] [address]- 8108 Jun, 2014 [facility] [place] [facility] [address] [facility] [id number] [place] [address]- 9779 Jun, 2014 [facility] [place] [facility] [address] [facility] [id number] [place] [address]- 4668 Jun, 2014 [facility] [place] [facility] [address] [facility] [id number] [place] [address]- 6300 Jun, 2014 [facility] [place] [facility] [address] [facility] [id number] [place] [address]- 2243 Jun, [facility] [place] [facility] [address] [facility] [id number] [place] [address]- 3850 19 May, 2014 [facility] [place] [facility] [address] [facility] [id number] [place] [address]- 9645 19 May, 2014 [facility] [place] [facility] [address] [facility] [id number] [place] [address]- 6306 18 May, 2014 [facility] [place] [facility] [address] [facility] [id number] [place] [address]- 0894 18 May, 2014 [facility] [place] [facility] [address] [facility] [id number] [place] [address]- 6796 16 May, 2014 [facility] [place] [facility] [address] [facility] [id number] [place] [address]- 9448 16 May, 2014 [facility] [place] [facility] [address] [facility] [id number] [place] [address]- 5354 13 May, 2014 [facility] [place] [facility] [address] [facility] [id number] [place] [address]- 6868 13 May, 2014 [facility] [place] [facility] [address] [facility] [id number] [place] [address]- 9180 10 May, 2014 [facility] [place] [facility] [address] [facility] [id number] [place] [address]- 8973 May, [facility] [place] [facility] [address] [id number] [place] [address]- 6093 Apr, [facility] [place] [facility] [address] [id number] [place] [address]- 5814 Apr, [facility] [place] [facility] [address] [id number] [place] [address]- 1318 Mar, [facility] [place] [facility] [address] [id number] [place] [address]- 2588 Mar, [facility] [place] [facility] [address] [id number] [place] [address]- 2396 Mar, [facility] [place] [facility] [address] [id number] [place] [address]- 0934 Mar, [facility] [place] [facility] [address] [id number] [place] [address]- 9159 Mar, [facility] [place] [facility] [address] [id number] [place] [address]- 0963 Mar, [facility] [place] [facility] [address] [id number] [place] [address]- 2130 Mar, [facility] [place] [facility] [address] [id number] [place] [address]- 9439 Feb, [facility] [place] [facility] [address] [id number] [place] [address]- 0915 Feb, [facility] [place] [facility] [address] [id number], [place] [address]- 7289 Feb, [facility] [place] [facility] [address] [id number] [place] [address]- 5697 Jan, [facility] [place] [facility] [address] [id number] [place] [address]- 3930 Jan, [facility] [place] [facility] [address] [id number] [place] [address]- 4774 Jan, [facility] [place] [facility] [address] [id number] [place] [address]- 5653 Jan, [facility] [place] [facility] [address] [id number] [place] [address]- 6560 Jan, [facility] [place] [facility] [address] [id number] [place] [address]- 4815 Jan, [facility] [place] [facility] [address] [id number] [place] [address]- 0916 Jan, [facility] [place] [facility] [address] [id number] [place] [address]- 6528 Jan, [facility] [place] [facility] [address] [id number] [place] [address]- 6708 Jan, [facility] [place] [facility] [address] [id number] [place] [address]- 4253 Jan, [facility] [place] [facility] [address] [id number] [place] [address]- 6026 Nov, [facility] [place] [facility] [address] [id number] [place] [address]- 3251 Nov, [facility] [place] [facility] [address] [id number] [place] [address]- 7336 Nov, [facility] [place] [facility] [address] [id number] [place] [address]- 0159 Oct, [facility] [place] [facility] [address] [id number] [place] [address]- 9120 Oct, [facility] [place] [facility] [address] [id number] [place] [address]- 8770 Oct, [facility] [place] [facility] [address] [id number] [place] [address]- 7306 Oct, [facility] [place] [facility] [address] [id number] [place] [address]- 1581 Oct, [facility] [place] [facility] [address] [id number] [place] 4987 Oct, [facility] [place] [facility] [address] [id number] [place] [address]- 7855 Oct, [facility] [place] [facility] [address] [id number] [place] [address]- 7013 Oct, [facility] [place] [facility] [address] [id number] [place] [address]- 8487 Oct, [facility] [place] [facility] [address] [id number] [place] [address]- 0944 Sep, [facility] [place] [facility] [address] [id number] [place] [address]- 3112 Sep, [facility] [place] [facility] [address] [id number] [place] [address]- 6105 Sep, [facility] [place] [facility] [address] [id number] [place] [address]- 3166 Sep, [facility] [place] [facility] [address] [id number] [place] [address]- 8388 Sep, [facility] [place] [facility] [address] [id number] [place] [address]- 7414 Sep, [facility] [place] [facility] [address] [id number] [place] [address]- 9987 Sep, [facility] [place] [facility] [address] [id number] [place] [address]- 3140 Sep, [facility] [place] [facility] [address] [id number] [place] [address]- 9341 Sep, [facility] [place] [facility] [address] [id number] [place] [address]- 6383 August, [facility] [place] [facility] [address] [id number] [place] [address]- 9520 August, [facility] [place] [facility] [address] [id number] [place] [address]- 4970 August, [facility] [place] [facility] [address] [id number] [place] [address]- 0486 August, [facility] [place] [facility] [address] [id number] [place] [address]- 7393 August, [facility] [place] [facility] [address] [id number] [place] [address]- 3568 August, [facility] [place] [facility] [address] [id number] [place] [address]- 9815 Jul, [facility] [place] [facility] [address] [id number] [place] [address]- 2431 Jul, [facility] [place] [facility] [address] [id number] [place] [address]- 5169 Jul, [facility] [place] [facility] [address] [id number] [place] [address]- 5981 Jul, [facility] [place] [facility] [address] [id number] [place] [address]- 2855 Jul, [facility] [place] [facility] [address] [id number] [place] [address]- 4513 Jul, [facility] [place] [facility] [address] [id number] [place] [address]- 9100 Jun, [facility] [place] [facility] [address] [id number] [place] [address]- 4872 Jun, [facility] [place] [facility] [address] [id number] [place] [address]- 7900 May, [facility] [place] [facility] [address] [id number] [place] [address]- 7597 May, [facility] [place] [facility] [address] [id number] [place] [address]- 9563 May, [facility] [place] [facility] [address] [id number] [place] [address]- 2739 May, [facility] [place] [facility] [address] [id number] [place] [address]- 2938 Apr, [facility] [place] [facility] [address] [id number] [place] [address]- 8124 Apr, [facility] [address] [id number] [place] [address]- 8454 Mar, [facility] [place] [facility] [address] [id number] [place] [address]- 6989 Mar, [facility] [address] [id number] [place] [address]- 0916 Mar, [facility] [place] [facility] [address] [id number] [place] [address]- 1336 Mar, [facility] [address] [id number] [place] [address]- 7162 Mar, [facility] [place] [facility] [address] [id number] [place] [address]- 1997 Mar, [facility] [place] [facility] [address] [id number] [place] [address]- 8792 Feb, [facility] [address] [id number] [place] [address]- 5420 Feb, [facility] [place] [facility] [address] [id number] [place] [address]- 1345 Feb, [facility] [place] [facility] [address] [id number] [place] [address]- 0607 Feb, [facility] [place] [facility] [address] [id number] [place] [address]- 3106 Feb, [facility] [place] [facility] [address] [id number] [place] [address]- 6429 Feb, [facility] [place] [facility] [address] [id number] [place] [address]- 2499 Jan, [facility] [place] [facility] [address] [id number] [place] [address]- 0536 Jan, [facility] [place] [facility] [address] [id number] [place] [address]- 8299 Jan, [facility] [place] [facility] [address] [id number] [place] [address]- 0632 Jan, [facility] [place] [facility] [address] [id number] [place] [address]- 0343 Jan, [facility] [place] [facility] [address] [id number] [place] [address]- 2282 Jan, [facility] [place] [facility] [address] [id number] [place] [address]- 9576 Dec, [facility] [place] [facility] [address] [id number] [place] [address]- 3438 Dec, [facility] [place] [facility] [address] [id number] [place] [address]- 8868 Nov, [facility] [place] [facility] [address] [id number] [place] [address]- 5656 Nov, [facility] [place] [facility] [address] [id number] [place] [address]- 1766 Oct, [facility] [place] [facility] [address] [id number] [place] [address]- 6400 Oct, [facility] [place] [facility] [address] [id number] [place] [address]- 2923 Oct, [facility] [place] [facility] [address] [id number] [place] [address]- 4961 Oct, [facility] [place] [facility] [address] [id number], [place] [address]- 2055 Oct, [facility] [place] [facility] [address] [id number] [place] [address]- 8958 Oct, [facility] [place] [facility] [address] [id number] [place] [address]- 3470 Sep, [facility] [place] [facility] [address] [id number] [place] [address]- 6549 Sep, [facility] [place] [facility] [address] [id number] [place] [address]- 5315 Sep, [facility] [address] [id number] [place] [address]- 0258 Sep, [facility] [address] [id number] [place] [address]- 5645 August, [facility] [address] [id number] [place] [address]- 2037 August, [facility] [address] [id number] [place] [address]- 3555 August, [facility] [address] [id number] [place] [address]- 1031 August, [facility] [address] [id number] [place] [address]- 8183 August, [facility] [address] [id number] [place] [address]- 1163 Jul, [facility] [address] [id number] [place] [address]- 9768 Jul, [facility] [address] [id number] [place] [address]- 2362 Jul, [facility] [address] [id number] [place] [address]- 3392 Jul, [facility] [address] [id number] [place] [address]- 4944 Jul, [facility] [address] [id number] [place] [address]- 9869 Jul, [facility] [place] [facility] [address] [id number] [place] [address]- 0587 Jul, [facility] [place] [facility] [address] [id number] [place] [address]- 6630 Jul, [facility] [address] [id number] [place] [address]- 6676 Jul, [facility] [place] [facility] [address] [id number] [place] [address]- 5406 Jul, [facility] [address] [id number] [place] [id number] Jun, [facility] [address] [id number] [place] [address]- 5456 Jun, [facility] [address] [id number] [place] [address]- 7186 Jun, [facility] [address] [id number] [place] [address]- 2019 Jun, [facility] [address] [id number] [place] [address]- 6666 Jun, [facility] [address] [id number] [place] [address]- 6292 May, [facility] [address] [id number] [place] [address]- 2710 May, [facility] [address] [id number] [place] [address]- 1354 May, [facility] [address] [id number] [place] [address]- 1450 Apr, [facility] [address] [id number] [place] [address]- 3682 Apr, [facility] [address] [id number] [place] [address]- 1065 Apr, [facility] [address] [id number] [place] [address]- 5165 Apr, [facility] [address] [id number] [place] [address]- 4406 Apr, [facility] [address] [id number] [place] [address]- 2756 Apr, [facility] [address] [id number] [place] [address]- 2926 Mar, [facility] [place] [facility] [address] [id number] [place] [address]- 4108 Mar, [facility] [place] [facility] [address] [id number] [place] [address]- 6538 Mar, [facility] [place] [facility] [address] [facility] [id number] [place] [address] Mar, [facility] [place] [facility] [address] [id number] [place] [address] Feb, [facility] [place] [facility] [address] [id number] [place] [address] Feb, [facility] [place] [facility] [address] [id number] [place] [address] Feb, [facility] [place] [facility] [address] [id number] [place] [address] Feb, [facility] [place] [facility] [address] [id number], [place] [address] Feb, [facility] [place] [facility] [address] [id number] [place] [address] Feb, [facility] [place] [facility] [address] [facility] [id number], [place] [address] Feb, [facility] [place] [facility] [address] [id number], [place] [address] Feb, [facility] [place] [facility] [address] [id number], [place] [address] Feb, [facility] [place] [facility] [address] [id number], [place] [address] Feb, [facility] [place] [facility] [address] [id number], [place] [address] Feb, [facility] [place] [facility] [address] [facility] [id number], [place] [address] Feb, [facility] [place] [facility] [address] [id number] [place] [address] 05 Feb, 2011 [facility] [place] [facility] [address] [id number] [place] [address] Feb, 2011 [facility] [place] [facility] [address] [id number] [place] [address] Feb, [facility] [place] [facility] [address] [id number] [place] [address] Feb, [facility] [place] [facility] [address] [id number] [place] [address] Jan, 2011 [facility] [place] [facility] [address] [id number] [place] [address] Jan, 2011 [facility] [place] [facility] [address] [id number] [place] [address] Jan, [facility] [place] [facility] [address] [facility] [id number] [place] [address] Jan, [facility] [place] [facility] [address] [id number] [place] [address] Jan, [facility] [place] [facility] [address] [facility] [id number] [place] [address]- [address] Jan, [facility] [place] [facility] [address] [facility] [id number] [place] [address]- [address] Jan, [facility] [place] [facility] [address] [facility] [id number] [place] [address] 16 Jan, 2012 [facility] [place] [facility] [address] [facility] [id number], [place] [address] 16 Jan, 2012 [facility] [place] [facility] [address] [facility] [id number] [place] [address] 15 Jan, 2012 [facility] [place] [facility] [address] [facility] [id number], [place] [address] Jan, [facility] [place] [facility] [address] [facility] [id number][place] [address] Jan, [facility] [place] [facility] [address] [id number] [place] [address] 26 Dec, 2011 [facility] [place] [facility] [address] [id number] [place] [address]46 26 Dec, 2011 [facility] [place] [facility] [address] [id number] [place] [address]- [address] 24 Dec, 2011 [facility] [place] [facility] [address] [id number] [place] [address]46 23 Dec, 2011 [facility] [place] [facility] [address] [id number] [place] [address]- [address]43 22 Dec, 2011 [facility] [place] [facility] [address] [id number] [place] [address] 359[address] 21 Dec, 2011 [facility] [place] [facility] [address] [id number] [place] [address]- [address] 20 Dec, 2011 [facility] [place] [facility] [address] [id number] [place] [address]- [address] 20 Dec, 2011 [facility] [place] [facility] [address] [id number] [place] [address]- [address] 07 Dec, 2011 [facility] [place] [facility] [address] [id number] [place] [address]- 84[address] 06 Dec, 2011 [facility] [place] [facility] [address] [id number] [place] [address] 06 Dec, 2011 [facility] [place] [facility] [address] [id number] [place] [address]- [address] 05 Sep, 2011 [facility] [place] [facility] [address] [id number] [place] [address]- [address] 23 Nov, 2011 [facility] [place] [facility] [address] [id number] [place] [address]- [address]46 17 Nov, 2011 [facility] [place] [facility] [address] [id number] [place] [address]- [address]487 13 Nov, 2011 [facility] [place] [facility] [address] [id number] [place] [address]- [address] Nov, [facility] [place] [facility] [address] [id number] [place] [address]- [address] Nov, [facility] [place] [facility] [address] [id number] [place] [address]- [address] Nov, [facility] [place] [facility] [address] [id number] [place] [address]- 5716 Nov, [facility] [place] [facility] [address] [id number] [place] [address]- [address] Nov, [facility] [place] [facility] [address] [id number] [place] [address]- [address] Oct, [facility] [place] [facility] [address] [id number] [place] [address]- [address]55 Oct, [facility] [place] [facility] [address] [id number] [place] [address]- [address] Oct, [facility] [place] [facility] [address] [id number] [place] [address] Oct, [facility] [place] [facility] [address] [id number] [place] [address]- [address] Oct, [facility] [place] [facility] [address] [id number] [place] [address]- 33[address] Oct, [facility] [place] [facility] [address] [id number] [place] [address]- 87[address] Oct, [facility] [place] [facility] [address] [id number] [place] [address]- [address] Sep, [facility] [place] [facility] [address] [id number] [place] [address]- [address] Sep, [facility] [place] [facility] [address] [id number] [place] [id number] August, [facility] [place] [facility] [address] [id number] [place] [address] August, [facility] [place] [facility] [address] [id number] [place] [address] August, [facility] [address] [id number] [place] [address] August, [facility] [address] [id number] [place] [address] Jul, [facility] [address] [id number] [place] [address] Jul, [facility] [address] [id number] [place] [address] Jul, [facility] [address] [id number] [place] [address] Jul, [facility] [address] [id number] [place] [address] Jul, [facility] [address] [id number] [place] [address] Jul, [facility] [address] [id number] [place] [address] Jul, [facility] [address] [id number] [place] [address] Jul, [facility] [address] [id number] [place] [address] Jul, [facility] [address] [id number] [place] [address] 23 Jun, 2011 [facility] [address] [id number] [place] [address] 19 Jun, 2011 [facility] [place] [facility] [address] [id number] [place] [address] 15 Jun, 2011 [facility] [address] [id number] [place] [address] 14 Jun, 2011 [facility] [address] [id number] [place] [address] Jun, [facility] [address] [id number] [place] [address] Jun, [facility] [place] [facility] [address] [id number] [place] [address] Jun, [facility] [address] [id number] [place] [address] May, [facility] [place] [facility] [address] [id number] [place] [address] May, [facility] [address] [id number] [place] [address] May, [facility] [place] [facility] [address] [id number] [place] [address] May, [facility] [address] [id number] [place] [address] May, [facility] [place] [facility] [address] [id number] [place] [address]- [address] Apr, [facility] [address] [id number] [place] [address] Apr, [facility] [place] [facility] [address] [id number] [place] [address] Apr, [facility] [address] [id number] [place] [address] Apr, [facility] [place] [facility] [address] [id number] [place] [address]- [address] Apr, [facility] [place] [facility] [address] [id number] [place] [address] Mar, [facility] [place] [facility] [address] [id number] [place] [address] Mar, [facility] [place] [facility] [address] [id number] [place] [address] Mar, [facility] [place] [facility] [address] [id number] [place] [address]- [address] Mar, [facility] [place] [facility] [address] [id number] [place] [address] Mar, [facility] [place] [facility] [address] [id number] [place] [address] Mar, [facility] [place] [facility] [address] [id number] [place] [address]- [address] Mar, [facility] [place] [facility] [address] [id number] [place] [address]- [address] Feb, [facility] [place] [facility] [address] [id number] [place] [address] Feb, [facility] [place] [facility] [address] [id number] [place] [address] Feb, [facility] [place] [facility] [address] [id number] [place] [address]- [address] Feb, [facility] [place] [facility] [address] [id number] [place] [address] Jan, [facility] [place] [facility] [address] [id number] [place] [address] Jan, [facility] [place] [facility] [address] [id number] [place] [address]- [address] Jan, [facility] [place] [facility] [address] [id number] [place] [address] Jan, [facility] [place] [facility] [address] [id number] [place] [address] Nov, [facility] [place] [facility] [address] [id number] [place] [address] Mar, [facility] [place] [facility] [address] [id number] [place] [address] Mar, [facility] [place] [facility] [address] [id number] [place] [address]- [address] Mar, [facility] [address] [id number] [address] Mar, [facility] [address] [id number] [address] Mar, [facility] [address] [id number] [address] Mar, [facility] [id number] [place] [address] Feb, [facility] [id number] [address] Feb, [facility] [id number] [address] Jan, [facility] [id number] [place] [address] Jan, [facility] [address] [id number] [address] Jan, IMMUNIZATIONS No Known Immunizations SOCIAL [...] 2020 & 2007 Surgical History Bladder surgery [facility] 03/2016 Hospitalization History Surgeries Only Hospitalization History 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
--- OUTSIDE RECORDS SUMMARY | 2018-05-29 09:11 | XMS REPORT ---
Author Author ISABEL MAE [facility] Address [address] [place] [address] Care Team Providers [employer] Name Role Phone ISABEL MAE Unavailable PROBLEMS Type Condition ICD9-CM Code RJA92-DB Code Onset Dates Condition Status SNOMED Code Problem Abnormal chest CT R93.8 Active 718062277 Problem Long-term use of high-risk medication Z79.899 Active 864556718 Problem Low back pain M54.5 Active 476053702 Problem Generalized anxiety disorder F41.1 Active 26517751 Problem Dysthymic disorder F34.1 Active 85385300 Problem Coronary artery disease involving [place] coronary artery of [place] heart, angina presence unspecified I25.10 Active 5883900312554 Problem Mixed stress and urge urinary incontinence N39.46 Active 185970684 Problem Depressed F32.9 Active 46000667 Problem Fibromyalgia M79.7 Active 323086957 Problem Hypothyroid E03.9 Active 43769961 Problem Essential (primary) hypertension I10 Active 73336040 Problem Chronic kidney disease, unspecified N18.9 Active 048371669 Problem Vitamin D deficiency E55.9 Active 88816455 Problem Stage 3 chronic kidney disease N18.3 Active 929693113 Problem Mood disorder F39 Active 85272052 Problem Palpitations R00.2 Active 55337576 Problem Asthma J45.909 Active 687171336 Problem Insomnia G47.00 Active 824044143 Problem Bipolar disorder, current episode manic without psychotic features F31.10 Active 232326159 Problem Anemia in chronic kidney disease D63.1 Active 221372304336466 Problem Degenerative tear of medial meniscus of left knee M23.204 Active 272795953 Problem Primary osteoarthritis of left knee M17.12 Active 510915418 Problem Functional diarrhea K59.1 Active 47459312 Problem History of colon polyps Z86.010 Active 826817366 Problem Restless leg G25.81 Active 58380382 Problem Chronic kidney disease, stage 4 (severe) N18.4 Active 288317749 Problem Other seasonal allergic rhinitis J30.2 Active 442980773 Problem Hypokalemia E87.6 Active 41488088 Problem Asthma with acute exacerbation in adult J45.901 Active 571157738 Problem History of anemia Z86.2 Active 223313227 ALLERGIES No Information ENCOUNTERS Encounter Location Date Diagnosis [place] [address] [address] Jun, Fibromyalgia M79.7 [place] [address] [address] Jun, [place] [address] [address]- [address] Jun, [place] [address] [address] [address] May, [address] R93.8 and Stage 3 chronic kidney disease N18.3 [place] [address] 78954- 1034 May, Chronic kidney disease, stage 4 (severe) N18.4 [place] [address] 28229- 7[address] May, Chronic kidney disease, stage 4 (severe) N18.4 [place] [address] [address]- [address] May, Abnormal chest CT R93.8 [place] [address] 53757- 9573 May, [place] [address] 86113- 8909 May, [place] [address] 07171- 4695 May, Generalized anxiety disorder F41.1 and Major depressive disorder, recurrent episode with anxious distress F33.9 [place] [address] 98713- 4452 May, Mood disorder F39 [facility] [address] [place] [address] 91460- 9645 Apr, [facility] [address] [place] [address] 96362- 0879 Apr, Infected skin lesion L08.9 and Muscle strain of right shoulder region, initial encounter S46.911A [facility] [address] [place] [id number] [place] [address] 42576- 6997 Apr, Generalized anxiety disorder F41.1 and Major depressive disorder, recurrent episode with anxious distress F33.9 [facility] [address] [place] [id number] [place] [address] 32624- 0088 Apr, [facility] [address] [place] [address] 80224- 8960 Apr, Recent urinary tract infection Z87.440 and Hypothyroid E03.9 [facility] [address] [place] [id number] [place] [address] 89987- 3468 Apr, Generalized anxiety disorder F41.1 and Major depressive disorder, recurrent episode with anxious distress F33.9 [facility] [address] [place] [address] 25594- 7312 Apr, Recent urinary tract infection Z87.440 [facility] [address] [place] [address] 72363- 2625 Mar, [facility] [address] [place] [address] 99470 -4532 Mar, Dysuria R30.0 ; Acute cystitis without hematuria N30.00 and BMI 40.0-44.9, adult Z68.41 [facility] [address] [place] [address] 79043- 7032 Mar, [facility] [address] [place] [address] 13322- 6965 Mar, [facility] [address] [place] [id number] [place] [address] 30520- 2328 Mar, Generalized anxiety disorder F41.1 and Major depressive disorder, recurrent episode with anxious distress F33.9 [place] [address] [place] [id number] [place] [address] 26048- 6060 Feb, Conjunctivitis, bacterial H10.9 [place] [address] [place] [id number] [place] [address] 67418- 5068 Feb, [facility] [address] [place] [id number] [place] [address] 59376 -9701 Feb, Conjunctivitis, bacterial H10.9 [place] [address] [place] [id number] [place] [address] 77973- 3399 Feb, [facility] [address] [place] [id number] [place] [address] 92986 -0445 Feb, Dysuria R30.0 ; Acute cystitis N30.00 and BMI 40.0-44.9, adult Z68.41 [place] [address] [place] [id number] [place] [address] 56841- 4989 Feb, [place] [address] [place] [id number] [place] [address] 76748- 4946 Feb, Generalized anxiety disorder F41.1 and Major depressive disorder, recurrent episode with anxious distress F33.9 [place] [address] [place] [id number] [place] [address] 05848- 4705 Feb, Mood disorder F39 and BMI 40.0-44.9, adult Z68.41 [place] [address] [place] [address] 54764- 8438 Jan, [place] [address] [place] [id number] [place] [address] 27877- 6461 Jan, [place] [address] [place] [id number] [place] [address] 92213- 2518 Jan, Hypothyroid E03.9 [place] [address] [place] [address] [place] [address] Jan, [place] [address] 21466- 1689 Jan, Chronic kidney disease, unspecified N18.9 ; Hypokalemia E87.6 ; Essential (primary) hypertension I10 ; Fibromyalgia M79.7 ; Coronary artery disease involving [place] coronary artery of [place] heart, angina presence unspecified I25.10 ; Hypothyroid E03.9 and Encounter for immunization Z23 [place] [address] [address]- 2007 Jan, Hypothyroid E03.9 [place] [address] 98572- 6991 Jan, [place] [address] 35781- 2426 Dec, Vitamin D deficiency E55.9 [place] [address] 51532- 4283 28 Dec, 2016 Primary osteoarthritis of left knee M17.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 [place] [address] [address]- 1010 19 Dec, 2016 Fibromyalgia M79.7 [place] [address] [place] [id number] [place] [address] 24391- 3973 18 Dec, 2016 Mood disorder F39 [place] [address] 24715- 5021 13 Dec, 2016 [place] [address] [place] [id number] [place] [address] 25543- 8459 13 Dec, 2016 Generalized anxiety disorder F41.1 and Major depressive disorder, recurrent episode with anxious distress F33.9 [place] [address] [place] [id number] [place] [address] 07215- 9230 11 Dec, 2016 [place] [address] 84968- 5778 Dec, Streptococcal meningitis G00.2 [facility] [address] [address]- [address] 07 Dec, 2016 Streptococcal meningitis G00.2 [facility] [address] [address]- 5596 Dec, [facility] [address] [place] [address] 78335- 2301 Dec, Streptococcal meningitis G00.2 [facility] [address] [address]- 8338 Dec, [facility] [address] [place] [id number] [place] [address] 28947- 1135 Dec, Major depressive disorder, recurrent episode with anxious distress F33.9 [facility] [address] [place] [address] 15083- 3743 Nov, Fever, unspecified fever cause R50.9 [facility] [address] [address]- 2515 Nov, [facility] [address] [place] [id number] [place] [address] 67528- 9130 Nov, Hypothyroid E03.9 [facility] [address] [place] [address] 54758- 8584 Nov, Generalized anxiety disorder F41.1 and Major depressive disorder, recurrent episode with anxious distress F33.9 [facility] [address] [address]- 2965 Nov, [facility] [address] [place] [address] 160038462 Oct, Dental examination Z01.20 [facility] [address] [place] [address] 18470- 9076 Oct, Generalized anxiety disorder F41.1 and Major depressive disorder, recurrent episode with anxious distress F33.9 [facility] [address] [place] [address] 77069- 8911 Oct, Chronic kidney disease, stage 4 (severe) N18.4 [place] [address] [address]- 8452 Oct, [place] [address] [address]- 9407 Oct, Fibromyalgia M79.7 [place] [address] [place] [id number] [place] [address] 98420- 4672 Oct, [place] [address] [address]- 5547 Oct, Generalized anxiety disorder F41.1 ; Major depressive disorder, recurrent episode with anxious distress F33.9 and Bipolar disorder, current episode manic without psychotic features F31.10 [place] [address] [address]- 1783 Sep, [place] [address] [address]- 0979 Sep, [place] [address] [address]- 9113 Sep, Vitamin D deficiency E55.9 [place] [address] [address]- 7516 Sep, Vitamin D deficiency E55.9 [place] [address] [address]- 4636 Sep, [place] [address] [address]- 0946 Sep, Chronic kidney disease, stage 4 (severe) N18.4 ; Hypothyroid E03.9 ; Restless leg G25.81 ; Fibromyalgia M79.7 ; Essential ( primary) hypertension I10 ; Vitamin D deficiency E55.9 ; Dyspepsia R10.13 ; Anemia in chronic kidney disease D63.1 ; Chronic kidney disease, unspecified N18.9 ; Coronary artery disease involving [place] coronary artery of [place] heart , angina presence unspecified I25.10 ; Screening breast examination Z12.39 and Low back pain M54.5 [place] [address] [place] [id number] [place] [address] 55778- 6732 August, Generalized anxiety disorder F41.1 and Major depressive disorder, recurrent episode with anxious distress F33.9 [place] [address] [place] [id number] [place] [address] 49930- 7798 August, Generalized anxiety disorder F41.1 and Major depressive disorder, recurrent episode with anxious distress F33.9 [place] [address] [place] [id number] [place] [address] 43449- 4762 August, Fibromyalgia M79.7 [place] [address] 60972- 1738 Jul, Generalized anxiety disorder F41.1 and Major depressive disorder, recurrent episode with anxious distress F33.9 [place] [address] 33846- 7148 Jul, Fibromyalgia M79.7 [place] [address] [place] [id number] [place] [address] 16147- 7774 Jul, Generalized anxiety disorder F41.1 [place] [address] [place] [id number] [place] [address] 42074- 1741 May, [place] [address] [place] [id number] [place] [address] 19235- 0173 May, Hypothyroid E03.9 [place] [address] [place] [id number] [place] [address] 26647- 7735 08 May, 2016 Chronic kidney disease, stage 4 (severe) N18.4 ; Hypothyroid E03.9 ; Restless leg G25.81 ; Fibromyalgia M79.7 ; Essential ( primary) hypertension I10 ; Vitamin D deficiency E55.9 ; Dyspepsia R10.13 ; Acute non-recurrent maxillary sinusitis J01.00 ; Anemia in chronic kidney disease D63.1 ; Chronic kidney disease, unspecified N18.9 and Coronary artery disease involving [place] coronary artery of [place] heart, angina presence unspecified I25.10 [facility] [address] [address]- 4990 May, Vitamin D deficiency, unspecified E55.9 [facility] [address] [place] [id number] [place] [address] 16971 2546 May, Generalized anxiety disorder F41.1 and Major depressive disorder, recurrent episode with anxious distress F33.9 [facility] [address] [place] [id number] [place] [address] 50431- 8152 Apr, Pain in right knee M25.561 and Pain in left knee M25.562 [facility] [address] [place] [id number] [place] [address] 70133- 8346 Apr, [facility] [address] [place] [id number] [place] [address] 57734- 0622 Apr, [facility] [address] [place] [id number] [place] [address] 49981- 7184 Apr, [facility] [address] [place] [address] 29586- 8112 Mar, Generalized anxiety disorder F41.1 and Major depressive disorder, recurrent episode with anxious distress F33.9 [facility] [address] [place] [address] 34625- 9726 Mar, Generalized anxiety disorder F41.1 and Major depressive disorder, recurrent episode with anxious distress F33.9 [facility] [address] [place] [address] 47907- 8274 Mar, [facility] [address] [place] [address] 35298 2546 Mar, [facility] [address] [place] [id number] [place] [address] 98711 2546 Mar, [facility] [address] [place] [address] 48393 2546 Mar, Asthma J45.909 and Fibromyalgia M79.7 [facility] [address] [place] [id number] [place] [address] 34185- 5016 Mar, Chronic kidney disease, stage 4 (severe) N18.4 ; Vitamin D deficiency E55.9 and Essential (primary) hypertension I10 [facility] [address] [place] [id number] [place] [address] 13190- 4163 Feb, [facility] [address] [place] [id number] [place] [address] 60404- 2381 Feb, Dysuria R30.0 ; Mixed stress and urge urinary incontinence N39.46 ; Fibromyalgia M79.7 and Chronic kidney disease, stage IV (severe) N18.4 [place] [address] 39832- 1931 Feb, Chronic kidney disease, stage 4 (severe) N18.4 [place] [address] [place] [id number] [place] [address] 29368- 1845 Feb, Chronic kidney disease, stage 4 (severe) N18.4 [place] [address] [place] [id number] [place] [address] 65222- 2806 Feb, [facility] [address] [place] [id number] [place] [address] 79420- 2696 Feb, Vitamin D deficiency, unspecified E55.9 [facility] [address] [place] [id number] [place] [address] 89186- 6969 Jan, [facility] [address] [place] [id number] [place] [address] 44591- 9502 Jan, [facility] [address] [place] [id number] [place] [address] 27884- 4101 Dec, [facility] [address] [place] [id number] [place] [address] 52049- 0352 Dec, Chronic kidney disease, stage 4 (severe) N18.4 [facility] [address] [place] [id number] [place] [address] 06222- 9756 Dec, Dysthymic disorder F34.1 and Generalized anxiety disorder F41.1 [facility] [address] [place] [id number] [place] [address] 60859- 8653 Dec, [facility] [address] [place] [id number] [place] [address] 85839- 5943 Dec, [facility] [address] [place] [id number] [place] [address] 70262- 0581 Dec, Dysthymic disorder F34.1 and Generalized anxiety disorder F41.1 [place] [address] [place] [address] [place] [address] 35695- 2337 Dec, Dysuria R30.0 ; Chronic kidney disease, stage 4 (severe) N18.4 ; Hypertension I10 ; Dyspepsia R10.13 ; Yeast dermatitis B37.2 ; Palpitations R00.2 ; Hypothyroid E03.9 ; Functional diarrhea K59.1 and Other seasonal allergic rhinitis J30.2 [facility] [address] [address] -6911 Dec, [facility] [address] [place] [id number] [place] [address] 29961 -3880 Nov, Dysuria R30.0 and Stress incontinence N39.3 [place] [address] [place] [id number] [place] [address] 71865- 7386 Nov, [place] [address] [place] [id number] [place] [address] 00143- 2522 Nov, [place] [address] [place] [id number] [place] [address] 04605- 6030 Nov, Osteoarthritis of knees, bilateral M17.0 [place] [address] 61720- 5468 Nov, Dysthymic disorder F34.1 and Generalized anxiety disorder F41.1 [facility] [address] [place] [id number] [place] [address] 49946- 8632 Nov, [place] [address] [place] [address] [place] [address]- 2310 Nov, [facility] [address] [place] [id number] [place] [address] 38249- 0968 Nov, Urgency of urination R39.15 [facility] [address] [place] [id number] [place] [address] 17591- 0938 Nov, [facility] [address] [place] [id number] [place] [address] 74677- 8632 Nov, Chronic kidney disease, stage 4 (severe) N18.4 [facility] [address] [place] [id number] [place] [address] 74926- 7123 Oct, Hypertension I10 ; Coronary artery disease involving [place] coronary artery of [place] heart, angina presence unspecified I25.10 ; Palpitations R00.2 ; Hypothyroid E03.9 ; Right foot pain M79.671 ; Functional diarrhea K59.1 and Other seasonal allergic rhinitis J30.2 [facility] [address] [place] [id number] [place] [address] 14218- 1021 Oct, Dysthymic disorder F34.1 and Generalized anxiety disorder F41.1 [facility] [address] [place] [id number] [place] [address] 02255- 5420 Sep, [facility] [address] [place] [id number] [place] [address] 97063- 0865 Sep, [facility] [address] [place] [id number] [place] [address] 25133- 5048 Sep, [facility] [address] [place] [id number] [place] [address] 88949- 2545 Sep, [facility] [address] [place] [id number] [place] [address] 64973- 7604 Sep, [facility] [address] [place] [id number] [place] [address] 72065- 6345 Sep, Dysthymic disorder F34.1 and Generalized anxiety disorder F41.1 [facility] [address] [place] [address]- 1535 16 Sep, 2015 Asthma with acute exacerbation in adult J45.901 ; Dysuria R30.0 ; Chronic kidney disease, stage 4 (severe) N18.4 and History of anemia Z86.2 [place] [address] [place] [address] [place] [address] 77535- 4860 2015 Generalized anxiety disorder F41.1 and Dysthymic disorder F34.1 [place] [address] [place] [address] [place] [address] 21635- 4771 August, Screening breast examination Z12.39 and Acute recurrent maxillary sinusitis J01.01 [place] [address] 50821- 9376 August, Osteoarthritis of knees, bilateral M17.0 [place] [address] [place] [id number] [place] [address] 64341- 4957 August, Chronic kidney disease, stage 4 (severe) N18.4 ; Acute non- recurrent maxillary sinusitis J01.00 ; Urinary problem R39.89 ; Bowel habit changes R19.4 ; Functional diarrhea K59.1 and History of colon polyps Z86.010 [place] [address] [place] [address] [place] [address] 98559- 9147 Jul, Dysthymic disorder F34.1 and Generalized anxiety disorder F41.1 [place] [address] [place] [id number] [place] [address] 46686- 9013 Jul, [place] [address] [place] [id number] [place] [address] 37395- 3540 Jul, Dysthymic disorder F34.1 ; Generalized anxiety disorder F41.1 and correction use of drug Z79.899 [place] [address] [place] [address] [place] [address] 90976- 1012 Jul, [place] [address] [place] [id number] [place] [address] 50680- 7043 Jun, [place] [address] [place] [address] [place] [address]- 9521 Jun, [facility] [address] [place] [id number] [place] [address] 30958- 9458 May, [facility] [address] [place] [id number] [place] [address] 81000- 4981 May, Dysthymic disorder F34.1 and Generalized anxiety disorder F41.1 [place] [address] 93235- 1780 Apr, Kidney disease N28.9 [place] [address] [place] [id number] [place] [address] 01617- 7984 Apr, Generalized anxiety disorder F41.1 and Dysthymic disorder F34.1 [place] [address] 78439- 7280 Apr, Chronic kidney disease, stage 4 (severe) N18.4 [place] [address] [place] [id number] [place] [address] 00292- 6544 Apr, Generalized anxiety disorder F41.1 ; Major depression, recurrent F33.9 and Sleep disturbance G47.9 [place] [address] [place] [id number] [place] [address] 39013- 7418 Mar, Generalized anxiety disorder F41.1 and Dysthymic disorder F34.1 [place] [address] [place] [id number] [place] [address] 02701- 7036 Mar, Generalized anxiety disorder F41.1 ; Dysthymic disorder F34.1 and Insomnia G47.00 [place] [address] [place] [id number] [place] [address] 38651- 0868 Mar, [place] [address] [id number]- [phone] Mar, [facility] [facility] [id number] [place] [address] [id number]- 3628 Mar, Osteoarthritis of knees, bilateral M17.0 [place] [id number] [place] [address] [id number]- [id number] Mar, Hypertension I10 ; Hypothyroid E03.9 ; Dysthymic disorder F34.1 ; Chronic kidney disease, stage 4 (severe) N18.4 and Nausea & vomiting R11.2 [facility] [id number] [place] [address] 7[address]17- 3336 Mar, Generalized anxiety disorder F41.1 ; Dysthymic disorder F34.1 and Insomnia G47.00 [place] [id number] [place] [address] [phone]- [phone] Mar, Dehydration E86.0 ; Chronic kidney disease, stage 4 (severe ) N18.4 and Nausea & vomiting R11.2 [facility] [id number] [place] [address] 69440 -0543 08 Mar, 2015 Gastroenteritis K52.[address] 23986- 6673 Mar, [place] [id number] [place] [address] 66347- 5241 Mar, [place] [id number] [place] [address] 08081- 8922 Feb, Dysthymic disorder F34.1 and Generalized anxiety disorder F41.1 [place] [id number] [place] [address] 34858- 7942 Jan, UTI (urinary tract infection) N39.0 ; Asthma J45.909 ; Coronary artery disease involving [place] coronary artery of [place] heart, angina presence unspecified I25.10 ; Hypertension I10 ; Hypothyroid E03.9 ; Vitamin D deficiency E55.9 ; Insomnia G47.00 ; Palpitations R00.2 ; Depressed F32.9 ; Restless leg G25.81 and Anxiety F41.9 [place] [id number] [place] [address] 15491- 3360 Jan, Dysthymic disorder F34.1 and Generalized anxiety disorder F41.1 [place] [id number] [place] [address] 67570- 7313 07 Jan, 2015 [place] [address] 50096- 4588 Dec, [place] [id number] [place] [address] 53669- 8801 28 Dec, 2014 Alkalosis 276.3 ; Chronic kidney disease, Stage IV (severe) 585.4 ; Hyperpotassemia 276.7 ; Secondary hyperparathyroidism, renal 588.81 ; Proteinuria 791.0 ; Unspecified vitamin D deficiency 268.9 ; Anemia in chronic kidney disease 285.21 ; Other and unspecified hyperlipidemia 272.4 ; Hypertension, essential, benign 401.1 and Chronic kidney disease (CKD), stage III (moderate) 585.3 [place] [id number] [place] [address] 37328- 2117 16 Dec, 2014 [place] [address] 82365- 9651 Dec, Depressive disorder, not elsewhere classified 311 and Generalized anxiety disorder 300.02 [place] [address] 49234- 8048 Dec, [place] [id number] [place] [address] 96394- 4874 Dec, [place] [id number] [place] [address] 76866- 4527 Nov, Depressive disorder, not elsewhere classified 311 and Generalized anxiety disorder 300.02 [place] [id number] [place] [address] 39679- 2377 Nov, Arthritis of both knees 716.[address] 42608- 7377 07 Nov, 2014 PAF (paroxysmal atrial fibrillation) 427.31 ; CAD (coronary artery disease) 414.00 ; Chest pain 786.50 and Chronic kidney disease (CKD) stage G4/A1, severely decreased glomerular filtration rate (GFR) between 15-29 mL/min/1.73 square meter and albuminuria creatinine ratio less than 30 mg/g 585.[address] 08766- 3297 Oct, Coronary atherosclerosis of unspecified type of vessel, [place] or graft 414.00 ; Chronic kidney disease, Stage IV (severe) 585.4 ; Hypertension 401.9 and Edema 782.[address] 79634- 3868 Oct, Depressive disorder, not elsewhere classified 311 and Generalized anxiety disorder 300.02 [address] [address]- 5135 Oct, Depressive disorder, not elsewhere classified 311 and Generalized anxiety disorder 300.[address] 21916- 4727 Oct, [address] 86267- 5739 Oct, [address] 31464- 8969 Sep, [address] 69109- 1441 Sep, Chronic kidney disease, Stage IV (severe) 585.[address] 49161- 7565 Sep, [address] 50041- 2991 Sep, Coronary atherosclerosis of unspecified type of vessel, [place] or graft 414.00 ; Hypertension 401.9 ; Edema 782.3 and Hypothyroidism 244.[address] 09002- 4519 Sep, Coronary atherosclerosis of unspecified type of vessel, [place] or graft 414.00 ; Hypertension 401.9 ; Fibromyalgia 729.1 ; Edema 782.3 ; Hypothyroidism 244.9 and Anemia 285.9 [place] [address] [address] 4[address] Sep, Anxiety disorder, unspecified 300.00 and Depressive disorder , not elsewhere classified 311 [facility] [address] [address]- 6445 Sep, [facility] [id number] [place] [address] 45431- 1545 August, Generalized anxiety disorder 300.02 [facility] [id number] [place] [address] 51098- 3891 August, Closed fracture of lateral malleolus 824.2 [facility] [id number] [place] [address] 71882- 0131 Jul, [facility] [id number] [place] [address] 42085- 9129 Jul, [facility] [id number] [place] [address] 17683- 0079 Jun, [facility] [address] [address]- 4436 Jun, [facility] [address] [address]- 5126 Jun, [facility] [address] [address]- 3199 Jun, [facility] [address] [address]- 0888 Jun, [facility] [address] [address]- 5567 Jun, [facility] [id number] [address]- 8007 May, [facility] [address] 2109 May, [facility] [id number] [address]- 5224 18 May, 2014 [facility] [place] [facility] [address] [id number] [place] [address]- 8296 18 May, 2014 [facility] [place] [facility] [address] [id number] [place] [address]- 6826 16 May, 2014 [facility] [place] [facility] [address] [id number] [place] [address]- 6786 16 May, 2014 [facility] [place] [facility] [address] [id number] [place] [address]- 4563 13 May, 2014 [facility] [place] [facility] [address] [id number] [place] [address]- 2015 13 May, 2014 [facility] [place] [facility] [address] [id number] [place] [address]- 8740 10 May, 2014 [facility] [place] [facility] [address] [id number] [place] [address]- 6276 10 May, 2014 [facility] [place] [facility] [address] [id number] [place] [address]- 5604 Apr, [facility] [place] [facility] [address] [id number] [place] [address]- 9511 Apr, [facility] [place] [facility] [address] [facility] [id number] [place] [address]- 0297 Mar, [facility] [place] [facility] [address] [id number] [place] [address]- 2546 Mar, [facility] [place] [facility] [address] [id number] [place] [address]- 254 Mar, [facility] [place] [facility] [address] [id number] [place] [address] 2542 Mar, [facility] [place] [facility] [address] [id number] [place] [address]- 2546 15 Mar, 2014 [facility] [place] [facility] [address] [id number] [place] [address]- 2547 Mar, [facility] [place] [facility] [address] [id number] [place] [address]- 9647 Mar, [facility] [place] [facility] [address] [id number] [place] [address]- 5244 Feb, [facility] [place] [facility] [address] [id number] [place] [address]- 6801 Feb, [facility] [place] [facility] [address] [id number] [place] [address]- 8387 Feb, [facility] [place] [facility] [address] [id number] [place] [address]- 0831 Jan, [facility] [place] [facility] [address] [id number] [place] [address]- 9871 Jan, [facility] [place] [facility] [address] [id number] [place] [address]- 5910 Jan, [facility] [place] [facility] [address] [id number] [place] [address]- 0612 Jan, [facility] [place] [facility] [address] [id number] [place] [address]- 2221 Jan, [facility] [place] [facility] [address] [id number] [place] [address]- 7527 Jan, [facility] [place] [facility] [address] [id number] [place] [address]- 7443 Jan, [facility] [place] [facility] [address] [id number] [place] [address]- 1084 Jan, [facility] [place] [facility] [address] [id number] [place] [address]- 1744 Jan, [facility] [place] [facility] [address] [id number] [place] [address]- 4362 Jan, [facility] [place] [facility] [address] [id number] [place] 7609 Nov, [facility] [place] [facility] [address] [id number] [place] [address]- 3525 Nov, [facility] [place] [facility] [address] [id number] [place] [address]- 5985 Nov, [facility] [place] [facility] [address] [id number] [place] [address]- 0541 Oct, [facility] [place] [facility] [address] [id number] [place] [address]- 1823 Oct, [facility] [place] [facility] [address] [id number] [place] [address]- 5954 Oct, [facility] [place] [facility] [address] [id number] [place] [address]- 3032 Oct, [facility] [place] [facility] [address] [id number] [place] [address]- 2772 Oct, [facility] [place] [facility] [address] [id number] [place] [address]- 9917 Oct, [facility] [place] [facility] [address] [id number] [place] [address]- 9871 Oct, [facility] [place] [facility] [address] [id number] [place] [address]- 6617 Oct, [facility] [place] [facility] [address] [id number] [place] [address]- 3062 Oct, [facility] [place] [facility] [address] [id number] [place] [address]- 4491 Sep, [facility] [place] [facility] [address] [id number] [place] [address]- 1160 Sep, [facility] [place] [facility] [address] [id number] [place] [address]- 4200 Sep, [facility] [place] [facility] [address] [id number] [place] [address]- 4233 Sep, [facility] [place] [facility] [address] [id number] [place] [address]- 0977 Sep, [facility] [place] [facility] [address] [id number] [place] [address]- 2011 Sep, [facility] [address] [id number] [place] [address]- 3761 Sep, [facility] [place] [facility] [address] [id number] [place] [address]- 0120 Sep, [facility] [address] [id number] [place] [address]- 4051 Sep, [facility] [place] [facility] [address] [id number] [place] [address]- 9860 August, [facility] [place] [facility] [address] [id number] [place] [address]- 3436 August, [facility] [place] [facility] [address] [id number] [place] [address]- 0366 August, [facility] [place] [facility] [address] [id number] [place] [address]- 4450 August, [facility] [address] [id number] [place] [address]- 2689 August, [facility] [place] [facility] [address] [id number] [place] [address]- 8928 August, [facility] [address] [id number] [place] [address]- 5475 Jul, [facility] [place] [facility] [address] [id number] [place] [address]- 4548 Jul, [facility] [place] [facility] [address] [id number] [place] [address]- 4322 Jul, [facility] [place] [facility] [address] [id number] [place] [address]- 4311 Jul, [facility] [place] [facility] [address] [id number] [place] [address]- 3749 Jul, [facility] [place] [facility] [address] [id number] [place] [address]- 2648 Jul, [facility] [place] [facility] [address] [id number] [place] [address]- 3821 Jun, [facility] [place] [facility] [address] [id number] [place] [address]- 1634 Jun, [facility] [place] [facility] [address] [id number] [place] [address]- 1634 May, [facility] [place] [facility] [address] [id number] [place] [address]- 2282 May, [facility] [place] [facility] [address] [id number] [place] [address]- 6727 May, [facility] [place] [facility] [address] [id number] [place] [address]- 5425 May, [facility] [place] [facility] [address] [id number] [place] [address]- 9392 Apr, [facility] [place] [facility] [address] [id number] [place] [address]- 5166 Apr, [facility] [place] [facility] [address] [id number] [place] [address]- 9171 Mar, [facility] [place] [facility] [address] [id number] [place] [address]- 6680 Mar, [facility] [place] [facility] [address] [id number] [place] [address]- 3889 17 Mar, 2013 [facility] [place] [facility] [address] [id number] [place] [address]- 4316 17 Mar, 2013 [facility] [place] [facility] [address] [id number] [place] [address]- 4325 Mar, [facility] [place] [facility] [address] [id number] [place] [address]- 4962 05 Mar, 2013 [facility] [place] [facility] [address] [facility] [id number] [place] [address]- 4000 Feb, [facility] [place] [facility] [address] [id number] [place] [address]- 2673 Feb, [facility] [place] [facility] [address] [id number] [place] [address]- 7393 Feb, [facility] [place] [facility] [address] [id number] [place] 8975 Feb, [facility] [place] [facility] [address] [id number] [place] [address]- 0973 05 Feb, 2013 [facility] [place] [facility] [address] [id number] [place] [address]- 1748 Feb, [facility] [place] [facility] [address] [id number] [place] [address]- 5871 Jan, [facility] [place] [facility] [address] [id number] [place] [address]- 3257 Jan, [facility] [place] [facility] [address] [id number] [place] [address]- 3901 Jan, [facility] [place] [facility] [address] [id number] [place] [address]- 9669 Jan, [facility] [place] [facility] [address] [id number] [place] [address]- 7043 Jan, [facility] [place] [facility] [address] [id number] [place] [address]- 4063 Jan, [facility] [place] [facility] [address] [id number] [place] [address]- 5608 Dec, [facility] [place] [facility] [address] [id number] [place] [address]- 3412 Dec, [facility] [place] [facility] [address] [id number] [place] [address]- 0788 Nov, [facility] [place] [facility] [address] [id number] [place] [address]- 3759 Nov, [facility] [place] [facility] [address] [id number] [place] [address]- 8248 Oct, [facility] [place] [facility] [address] [id number] [place] [address]- 2130 Oct, [facility] [address] [id number] [place] [address]- 1761 Oct, [facility] [address] [id number] [place] [address]- 5865 Oct, [facility] [address] [id number] [place] [address]- 3296 Oct, [facility] [address] [id number] [place] [address]- 1749 Oct, [facility] [address] [id number] [place] [address]- 9528 Sep, [facility] [address] [id number] [place] [address]- 9827 Sep, [facility] [address] [id number] [place] [address]- 1600 Sep, [facility] [address] [id number] [place] [address]- 0980 Sep, [facility] [address] [id number] [place] [address]- 5076 August, [facility] [address] [id number] [place] [address]- 7639 August, [facility] [address] [id number] [place] [address]- 8006 August, [facility] [address] [id number] [place] [address]- 3790 August, [facility] [place] [facility] [address] [id number] [place] [address]- 2504 August, [facility] [address] [id number] [place] [address]- 3572 Jul, [facility] [address] [id number] [place] [address]- 0256 Jul, [facility] [address] [id number] [place] [address]- 1518 Jul, [facility] [place] [facility] [address] [id number] [place] [address]- 9696 Jul, [facility] [place] [facility] [address] [id number] [place] [address]- 5156 Jul, [facility] [place] [facility] [address] [id number] [place] [address]- 7470 Jul, [facility] [place] [facility] [address] [id number] [place] [address]- 6475 Jul, [facility] [place] [facility] [address] [id number] [place] [address]- 0716 Jul, [facility] [address] [id number] [place] [address]- 7832 Jul, [facility] [address] [id number] [place] [address]- 0766 Jul, [facility] [id number] [id number] Jun, [facility] [address] [id number] [place] [address]- 1815 Jun, [facility] [place] [facility] [address] [id number] [place] [address]- 7186 Jun, [facility] [place] [facility] [address] [id number] [place] [address]- 6306 Jun, [facility] [place] [facility] [address] [id number] [place] [address]- 4606 Jun, [facility] [place] [facility] [address] [id number] [place] [address]- 3416 May, [facility] [place] [facility] [address] [id number] [place] [address]- 4026 May, [facility] [place] [facility] [address] [id number] [place] [address]- 6941 May, [facility] [address] [id number] [place] [address]- 5840 Apr, [facility] [address] [id number] [place] [address]- 7307 Apr, [facility] [address] [id number] [place] [address]- 3373 Apr, [facility] [address] [id number] [place] [address]- 9622 Apr, [facility] [address] [id number] [place] [address]- 5602 Apr, [facility] [address] [id number] [place] [address]- 2320 Apr, [facility] [address] [id number] [place] [address]- 8947 Mar, [facility] [address] [id number] [place] [address]- 1559 Mar, [facility] [address] [id number] [place] [address]- 4849 Mar, [facility] [address] [id number] [place] [address]- 1563 Mar, [facility] [address] [id number] [place] [address]- 0741 Feb, [facility] [address] [id number] [place] [address]- 1580 Feb, [facility] [address] [id number] [place] [address] Feb, [facility] [address] [id number] [place] [address] Feb, [facility] [address] [id number] [place] [address] Feb, [facility] [place] [facility] [address] [id number] [place] [address] Feb, [facility] [place] [facility] [address] [id number] [place] [address] Feb, [facility] [place] [facility] [address] [id number] [place] [address] Feb, [facility] [place] [facility] [address] [id number] [place] [address] Feb, [facility] [place] [facility] [address] [id number] [place] [address] Feb, [facility] [place] [facility] [address] [id number] [place] [address] Feb, [facility] [place] [facility] [address] [facility] [id number] [place] [address] Feb, [facility] [place] [facility] [address] [id number] [place] [address] Feb, [facility] [place] [facility] [address] [facility] [id number] [place] [address] Feb, [facility] [place] [facility] [address] [facility] [id number] [place] [address] Feb, [facility] [place] [facility] [address] [facility] [id number] [place] [address] Feb, [facility] [place] [facility] [address] [id number] [place] [address] Jan, [facility] [place] [facility] [address] [id number] [place] [address] Jan, [facility] [place] [facility] [address] [id number] [place] [address] Jan, [facility] [place] [facility] [address] [facility] [id number] [place] [address] Jan, [facility] [place] [facility] [address] [id number] [place] [address] 30 Jan, 2012 [facility] [place] [facility] [address] [id number] [place] [address] Jan, [facility] [place] [facility] [address] [id number] [place] [address] Jan, [facility] [place] [facility] [address] [facility] [id number] [place] [address] 16 Jan, 2012 [facility] [place] [facility] [address] [id number] [place] [address] 16 Jan, 2012 [facility] [place] [facility] [address] [id number] [place] [address] 15 Jan, 2012 [facility] [place] [facility] [address] [id number] [place] [address] 15 Jan, 2012 [facility] [place] [facility] [address] [facility] [id number] [place] [address] Jan, [facility] [place] [facility] [address] [id number] [place] [address] 26 Dec, 2011 [facility] [place] [facility] [address] [facility] [id number] [place] [address] 26 Sep2011 [facility] [place] [facility] [address] [facility] [id number] [place] [address]- 2548 24 Sep2011 [facility] [place] [facility] [address] [facility] [id number] [place] [address] 254 23 Sep, 2011 [facility] [place] [facility] [address] [facility] [id number] [place] [address] 22 Sep, 2011 [facility] [place] [facility] [address] [id number] [place] [address] 254 21 Sep, 2011 [facility] [place] [facility] [address] [facility] [id number] [place] [address] 20 Sep, 2011 [facility] [place] [facility] [address] [facility] [id number] [place] [address] 20 Dec, 2011 [facility] [place] [facility] [address] [id number] [place] [address] 07 Dec, 2011 [facility] [place] [facility] [address] [id number] [place] [address] 06 Dec, 2011 [facility] [place] [facility] [address] [id number] [place] [address] 06 Dec, 2011 [facility] [place] [facility] [address] [id number] [place] [address] 05 Dec, 2011 [facility] [place] [facility] [address] [id number] [place] [address]- [address] 23 Nov, 2011 [facility] [place] [facility] [address] [id number] [place] [address] Nov, [facility] [place] [facility] [address] [id number] [place] [address] Nov, [facility] [place] [facility] [address] [id number] [place] [address] Nov, [facility] [place] [facility] [address] [id number] [place] [address] Nov, [facility] [place] [facility] [address] [id number] [place] [address]- [address] Nov, [facility] [place] [facility] [address] [id number] [place] [address] Nov, [facility] [place] [facility] [address] [id number] [place] [address] Nov, [facility] [place] [facility] [address] [id number] [place] [address] 254 Oct, [facility] [place] [facility] [address] [id number] [place] [address] Oct, [facility] [place] [facility] [address] [id number] [place] [address] Oct, [facility] [place] [facility] [address] [address] [id number] [place] [address] Oct, [facility] [place] [facility] [address] [id number] [place] [address] Oct, [facility] [place] [facility] [address] [id number] [place] [address] Oct, [facility] [place] [facility] [address] [id number] [place] [address] Oct, [facility] [place] [facility] [address] [id number] [place] [address] Sep, [facility] [place] [facility] [address] [id number] [place] [address] Sep, [facility] [place] [facility] [address] [id number] [place] [address] August, [facility] [place] [facility] [address] [id number] [place] [address] August, [facility] [place] [facility] [address] [id number] [place] [address] August, [facility] [place] [facility] [address] [id number] [place] [address] August, [facility] [place] [facility] [address] [id number] [place] [address] Jul, [facility] [place] [facility] [address] [id number] [place] [address] Jul, [facility] [place] [facility] [address] [id number] [place] [address] Jul, [facility] [place] [facility] [address] [id number] [place] [address] Jul, [facility] [place] [facility] [address] [id number] [place] [address] Jul, [facility] [place] [facility] [address] [id number] [place] [address] Jul, [facility] [place] [facility] [address] [id number] [place] [address] 03 Jul, 2011 [facility] [address] [id number] [place] [address] Jul, [facility] [place] [facility] [address] [id number] [place] [address] 02 Jul, 2011 [facility] [place] [facility] [address] [facility] [id number] [place] [address] 23 Jun, 2011 [facility] [place] [facility] [address] [id number] [place] [address] 19 Jun, 2011 [facility] [address] [id number] [place] [address] 15 Jun, 2011 [facility] [place] [facility] [address] [facility] [id number] [place] [address] 14 Jun, 2011 [facility] [address] [facility] [id number] [place] [address] Jun, [facility] [address] [facility] [id number] [place] [address] Jun, [facility] [place] [facility] [address] [facility] [id number] [place] [address] Jun, [facility] [address] [facility] [id number] [place] [address] 25 May, 2011 [facility] [place] [facility] [address] [facility] [id number] [place] [address] 24 May, 2011 [facility] [place] [facility] [address] [facility] [id number] [place] [address] 16 May, 2011 [facility] [place] [facility] [address] [id number] [place] [address] 16 May, 2011 [facility] [place] [facility] [address] [facility] [id number] [place] [address] 03 May, 2011 [facility] [place] [facility] [address] [facility] [id number] [place] [address] Apr, [facility] [place] [facility] [address] [id number] [place] [address] Apr, [facility] [place] [facility] [address] [id number] [place] [address] Apr, [facility] [place] [facility] [address] [id number] [place] [address] Apr, [facility] [place] [facility] [address] [id number] [place] [address] Apr, [facility] [place] [facility] [address] [id number] [place] [address] Mar, [facility] [place] [facility] [address] [id number] [place] [address] Mar, [facility] [place] [facility] [address] [id number] [place] [address] Mar, [facility] [place] [facility] [address] [id number] [place] [address]- [address] Mar, [facility] [place] [facility] [address] [id number] [place] [address] Mar, [facility] [place] [facility] [address] [id number] [place] [address] Mar, [facility] [place] [facility] [address] [id number] [place] [address] Mar, [facility] [place] [facility] [address] [id number] [place] [address] Feb, [facility] [place] [facility] [address] [id number] [place] [address] Feb, [facility] [place] [facility] [address] [id number] [place] [address] Feb, [facility] [place] [facility] [address] [id number] [place] [address] Feb, [facility] [place] [facility] [address] [id number] [place] [address] 31 Jan, 2011 [facility] [address] [facility] [id number] [place] [address] Jan, [facility] [address] [facility] [id number] [place] [address] Jan, [facility] [address] [facility] [id number] [place] [address] 134[address] Jan, [facility] [address] [facility] [id number] [place] [address] 118[address] Nov, [facility] [address] [facility] [id number] [place] [address] Mar, [facility] [address] [facility] [id number] [place] [address] 87[address] Mar, [facility] [id number] [place] [address] Mar, [facility] [address] [facility] [id number] [place] [address] Mar, [facility] [address] [id number] [place] [address] Mar, [facility] [address] [id number] [place] [address] 35[address] Mar, [facility] [address] [id number] [place] [address] Feb, [facility] [address] [facility] [id number] [place] [address] 25[address] Feb, [facility] [address] [facility] [id number] [place] [address]- [address] Jan, [facility] [address] [facility] [id number] [place] [address] Jan, [facility] [address] [id number] [place] [address] 14 Jan, 2009 IMMUNIZATIONS No Known Immunizations SOCIAL HISTORY Never Assessed REASON FOR VISIT NAIDA Manuel PLAN OF CARE VITAL SIGNS MEDICATIONS Unknown [...] meningitis December 2016 Hospitalization History [facility] psych for SI 1988 Hospitalization History [facility]-Altered mental status 05/2017
--- OUTSIDE RECORDS SUMMARY | 2018-05-29 09:12 | XMS REPORT ---
Author Author KEIRA FORD [facility] Address [address] [place] [address] Care Team Providers Care Sales Market Leader Name Role Phone KEIRA FORD Unavailable PROBLEMS Type Condition ICD9-CM Code LRU06-IU Code Onset Dates Condition Status SNOMED Code Problem Long-term use of high-risk medication Z79.899 Active 620959735 Problem Abnormal chest CT R93.8 Active 579908152 Problem Low back pain M54.5 Active 841191033 Problem Generalized anxiety disorder F41.1 Active 77130925 Problem Dysthymic disorder F34.1 Active 98656055 Problem Coronary artery disease involving [place] coronary artery of [place] heart, angina presence unspecified I25.10 Active 1743561498254 Problem Depressed F32.9 Active 11289493 Problem Fibromyalgia M79.7 Active 634713420 Problem Hypothyroid E03.9 Active 09053426 Problem Essential (primary) hypertension I10 Active 67282902 Problem Insomnia G47.00 Active 520477377 Problem Vitamin D deficiency E55.9 Active 87885486 Problem Anemia in chronic kidney disease D63.1 Active [id number] Problem Chronic kidney disease, unspecified N18.9 Active 926724984 Problem Body mass index (BMI) of 40.0-44.9 in adult Z68.41 Active 635530770 Problem Stage 3 chronic kidney disease N18.3 Active 838366600 Problem Restless leg G25.81 Active 84834559 Problem Palpitations R00.2 Active 91979454 Problem Asthma J45.909 Active 835624709 Problem Primary osteoarthritis of left knee M17.12 Active 568311119 Problem Bipolar disorder, current episode manic without psychotic features F31.10 Active 219805259 Problem Mood disorder F39 Active 90260171 Problem Degenerative tear of medial meniscus of left knee M23.204 Active 002748640 Problem History of colon polyps Z86.010 Active 523834568 Problem Asthma with acute exacerbation in adult J45.901 Active 714257506 Problem Chronic kidney disease, stage 4 (severe) N18.4 Active 936683261 Problem Functional diarrhea K59.1 Active 59880658 Problem Hypokalemia E87.6 Active 89556704 Problem Mixed stress and urge urinary incontinence N39.46 Active 860662075 Problem History of anemia Z86.2 Active 273068987 Problem Other seasonal allergic rhinitis J30.2 Active 966160470 ALLERGIES No Information ENCOUNTERS Encounter Location Date Diagnosis [place] [address] [address] August, [place] [address] [address] Jul, [place] [address] [address]28 Jul, Chronic kidney disease, stage 4 (severe) N18.4 [place] [address] [address] Jul, [place] [address] [address]- 4527 Jul, Restless leg G25.81 ; Mixed stress and urge urinary incontinence N39.46 and Fibromyalgia M79.7 [place] [address] [address]- [address]56 Jul, Chronic kidney disease, stage 4 (severe) N18.4 [place] [address] [address]- [address] Jun, Orthostatic hypotension I95.1 ; Chronic kidney disease, stage 4 (severe) N18.4 ; Chest wall discomfort R07.89 and Body mass index (BMI) of 40.0-44.9 in adult Z68.41 [place] [address] [address] Jun, [place] [address] [address]- [address]26 Jun, Orthostatic hypotension I95.1 [facility], [place] [address] [place] [id number] [place] [address] 57784- 5366 Jun, [facility] [address] [place] [id number] [place] [address] 12523 -7835 Jun, Orthostatic hypotension I95.1 ; Dysuria R30.0 and Acute cystitis without hematuria N30.00 [facility], [place] [address] [place] [id number] [place] [address] 68187- 7637 Jun, [facility], [place] [address] [place] [id number] [place] [address] 55653- 2997 Jun, Chronic kidney disease, stage 4 (severe) N18.4 [facility], [place] [address] [place] [id number] [place] [address] 94417- 2770 Jun, Fibromyalgia M79.7 [facility], [place] [address] [place] [id number] [place] [address] 08598- 3846 Jun, [facility], [place] [address] [place] [id number] [place] [address] 24964- 1785 Jun, [facility], [place] [address] 75022- [address]270 May, [address] R93.8 and Stage 3 chronic kidney disease N18.3 [facility], [place] [address] [place] [id number] [place] [address] 68010- 1093 May, Chronic kidney disease, stage 4 (severe) N18.4 [facility], [place] [address] [place] [id number] [place] [address] 68637- 2586 May, Chronic kidney disease, stage 4 (severe) N18.4 [facility], [place] [address] [place] [id number] [place] [address] 79323- [address] May, [address] R93.8 [facility], [place] [address] [place] [id number] [place] [address] 73981- 5401 May, [facility], [place] [address] [place] [id number] [place] [address] 05677- 7204 May, [facility], [place] [address] [place] [address] May, Generalized anxiety disorder F41.1 and Major depressive disorder, recurrent episode with anxious distress F33.9 [facility], [place] [address] [place] [address] 29[address] May, Mood disorder F39 [facility], [place] [id number] [place] [address] 95489- 5463 Apr, [facility], [place] [address], [place] [address] 8[address] Apr, Infected skin lesion L08.9 and Muscle strain of right shoulder region, initial encounter S46.911A [place] [address] [place] [address] Apr, Generalized anxiety disorder F41.1 and Major depressive disorder, recurrent episode with anxious distress F33.9 [facility], [place] [address], [place] [address] 386[address] Apr, [facility], [place] [id number] [place] [address] 15222- 5984 Apr, Recent urinary tract infection Z87.440 and Hypothyroid E03.9 [place] [address] [place] [address] 3[address] Apr, Generalized anxiety disorder F41.1 and Major depressive disorder, recurrent episode with anxious distress F33.9 [facility], [place] [address] [place] [address] [address] 4018 Apr, Recent urinary tract infection Z87.440 [facility], [place] [address], [place] [address] 113[address] Mar, [facility] [address] [place] [address] [address] Mar, Dysuria R30.0 ; Acute cystitis without hematuria N30.00 and BMI 40.0-44.9, adult Z68.41 [place] [address] [place] [address] 32520- 6960 14 Mar, 2017 [place] [address] [place] [id number] [place] [address] 65369- 7248 Mar, [place] [address] [place] [id number] [place] [address] 05004- 2275 Mar, Generalized anxiety disorder F41.1 and Major depressive disorder, recurrent episode with anxious distress F33.9 [place] [address] [place] [id number] [place] [address] 64876- 5349 Feb, Conjunctivitis, bacterial H10.9 [place] [address] [place] [id number] [place] [address] 20820- 1250 Feb, [facility] [address] [place] [id number] [place] [address] 32162 -8973 Feb, Conjunctivitis, bacterial H10.9 [place] [address] [place] [id number] [place] [address] 71111- 2173 Feb, [facility] [address] [place] [id number] [place] [address] 50558 -0921 Feb, Dysuria R30.0 ; Acute cystitis N30.00 and BMI 40.0-44.9, adult Z68.41 [place] [address] [place] [id number] [place] [address] 59480- 0715 Feb, [place] [address] [place] [id number] [place] [address] 55123- 3953 Feb, Generalized anxiety disorder F41.1 and Major depressive disorder, recurrent episode with anxious distress F33.9 [place] [address] [place] [id number] [place] [address] 06733- 3487 Feb, Mood disorder F39 and BMI 40.0-44.9, adult Z68.41 [place] [address] [place] [id number] [place] [address] 88705- 6257 Jan, [facility], [place] [address] [place] [id number] [place] [address] 68794- 1537 Jan, [facility], [place] [address] [place] [id number] [place] [address] 68799- 6770 Jan, Hypothyroid E03.9 [facility], [place] [address] [place] [id number] [place] [address] 10158- 1072 Jan, [place] [address] [place] [id number] [place] [address] 51637- 1454 Jan, Chronic kidney disease, unspecified N18.9 ; Hypokalemia E87.6 ; Essential (primary) hypertension I10 ; Fibromyalgia M79.7 ; Coronary artery disease involving [place] coronary artery of [place] heart, angina presence unspecified I25.10 ; Hypothyroid E03.9 and Encounter for immunization Z23 [place] [address] [address]- 4092 Jan, Hypothyroid E03.9 [place] [address] [place] [id number] [place] [address] 79647- 0620 Jan, [place] [address] [place] [id number] [place] [address] 17924- 2036 Dec, Vitamin D deficiency E55.9 [place] [address] [place] [id number] [place] [address] 82275- 2540 Dec, Primary osteoarthritis of left knee M17.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 [place] [address] [place] [id number] [place] [address] 88156- 7311 19 Dec, 2016 Fibromyalgia M79.7 [facility], [place] [address] [place] [id number] [place] [address] 95630- 2265 18 Dec, 2016 Mood disorder F39 [facility], [place] [address] [place] [id number] [place] [address] 41150- 3596 13 Dec, 2016 [place] [address] [place] [id number] [place] [address] 28125- 0840 13 Dec, 2016 Generalized anxiety disorder F41.1 and Major depressive disorder, recurrent episode with anxious distress F33.9 [facility], [place] [address], [place] [address]- 4669 11 Dec, 2016 [facility], [place] [address], [place] [address]- 7322 08 Dec, 2016 Streptococcal meningitis G00.2 [facility], [place] [id number] [place] [address] 96888- 1938 07 Dec, 2016 Streptococcal meningitis G00.2 [facility], [place] [address], [place] [address]- 3363 07 Dec, 2016 [facility], [place] [id number] [place] [address] 34665- 4118 06 Dec, 2016 [facility], [place] [id number] [place] [address] 43538- 5978 06 Dec, 2016 Streptococcal meningitis G00.2 [facility], [place] [address], [place] [address]- 5563 06 Dec, 2016 Major depressive disorder, recurrent episode with anxious distress F33.9 [facility], [place] [id number] [place] [address] 81099- 1709 Nov, Fever, unspecified fever cause R50.9 [facility], [place] [address], [place] [address]- 2326 Nov, [facility], [place] [id number] [place] [address] 41788- 9397 Nov, Hypothyroid E03.9 [facility], [place] [id number] [place] [address] 72395- 0612 Nov, Generalized anxiety disorder F41.1 and Major depressive disorder, recurrent episode with anxious distress F33.9 [facility], [place] [address], [place] [address]- 0636 Nov, [facility] [address] [address] Oct, Dental examination Z01.20 [facility], [place] [address], [place] [address]- 7359 Oct, Generalized anxiety disorder F41.1 and Major depressive disorder, recurrent episode with anxious distress F33.9 [place] [address], [place] [address]- 6373 Oct, Chronic kidney disease, stage 4 (severe) N18.4 [facility], [place] [address] [place] [id number] [place] [address] 53563- 1914 Oct, [place] [address] [place] [id number] [place] [address] 18527- 4925 Oct, Fibromyalgia M79.7 [place] [address] [place] [id number] [place] [address] 75046- 3966 Oct, [place] [address] [place] [id number] [place] [address] 24013- 9603 Oct, Generalized anxiety disorder F41.1 ; Major depressive disorder, recurrent episode with anxious distress F33.9 and Bipolar disorder, current episode manic without psychotic features F31.10 [place] [id number] [place] [address] 78101- 4030 Sep, [place] [address], [place] [address]- 5129 Sep, [place] [address], [place] [address]- 3830 Sep, Vitamin D deficiency E55.9 [facility], [place] [address], [place] [address]- 6811 Sep, Vitamin D deficiency E55.9 [place] [address], [place] [address]- 6438 Sep, [facility], [place] [address], [place] [address]- 0108 Sep, Chronic kidney disease, stage 4 (severe) N18.4 ; Hypothyroid E03.9 ; Restless leg G25.81 ; Fibromyalgia M79.7 ; Essential ( primary) hypertension I10 ; Vitamin D deficiency E55.9 ; Dyspepsia R10.13 ; Anemia in chronic kidney disease D63.1 ; Chronic kidney disease, unspecified N18.9 ; Coronary artery disease involving [place] coronary artery of [place] heart , angina presence unspecified I25.10 ; Screening breast examination Z12.39 and Low back pain M54.5 [place] [address] [place] [id number] [place] [address] 69430- 8178 August, Generalized anxiety disorder F41.1 and Major depressive disorder, recurrent episode with anxious distress F33.9 [place] [address] [address]- 2017 August, Generalized anxiety disorder F41.1 and Major depressive disorder, recurrent episode with anxious distress F33.9 [place] [address] [place] [id number] [place] [address] 16494- 3742 August, Fibromyalgia M79.7 [place] [address] [place] [id number] [place] [address] 63044- 5473 Jul, Generalized anxiety disorder F41.1 and Major depressive disorder, recurrent episode with anxious distress F33.9 [place] [address] [place] [id number] [place] [address] 60484- 3265 Jul, Fibromyalgia M79.7 [place] [address] [place] [id number] [place] [address] 37851- 5517 Jul, Generalized anxiety disorder F41.1 [place] [address] [place] [id number] [place] [address] 40847- 5067 May, [place] [address] [place] [id number] [place] [address] 33856- 1959 May, Hypothyroid E03.9 [place] [address] [place] [id number] [place] [address] 05432- 9655 May, Chronic kidney disease, stage 4 (severe) N18.4 ; Hypothyroid E03.9 ; Restless leg G25.81 ; Fibromyalgia M79.7 ; Essential ( primary) hypertension I10 ; Vitamin D deficiency E55.9 ; Dyspepsia R10.13 ; Acute non-recurrent maxillary sinusitis J01.00 ; Anemia in chronic kidney disease D63.1 ; Chronic kidney disease, unspecified N18.9 and Coronary artery disease involving [place] coronary artery of [place] heart, angina presence unspecified I25.10 [place] [address] [place] [id number] [place] [address] 30258- 6653 May, Vitamin D deficiency, unspecified E55.9 [place] [address] [place] [id number] [place] [address] 31759- 9052 May, Generalized anxiety disorder F41.1 and Major depressive disorder, recurrent episode with anxious distress F33.9 [place] [address] [place] [id number] [place] [address] 22109- 4896 Apr, Pain in right knee M25.561 and Pain in left knee M25.562 [place] [address] [place] [id number] [place] [address] 07364- 1462 Apr, [place] [address] [place] [id number] [place] [address] 19433- 7753 Apr, [place] [address] [place] [id number] [place] [address] 54179- 6954 Apr, [place] [address] [place] [id number] [place] [address] 20441- 7561 Mar, Generalized anxiety disorder F41.1 and Major depressive disorder, recurrent episode with anxious distress F33.9 [place] [address] [place] [id number] [place] [address] 10185- 9910 Mar, Generalized anxiety disorder F41.1 and Major depressive disorder, recurrent episode with anxious distress F33.9 [place] [address] [place] [id number] [place] [address] 64230- 9870 Mar, [place] [address] [place] [id number] [place] [address] 14049- 6129 Mar, [facility], [place] [address] [place] [id number] [place] [address] 25492- 4288 Mar, [facility], [place] [address] [place] [id number] [place] [address] 71472- 6345 Mar, Asthma J45.909 and Fibromyalgia M79.7 [place] [address] 90472- 3029 Mar, Chronic kidney disease, stage 4 (severe) N18.4 ; Vitamin D deficiency E55.9 and Essential (primary) hypertension I10 [place] [address] 28301- 0076 Feb, [place] [address] [place] [id number] [place] [address] 30894- 7624 Feb, Dysuria R30.0 ; Mixed stress and urge urinary incontinence N39.46 ; Fibromyalgia M79.7 and Chronic kidney disease, stage IV (severe) N18.4 [place] [address] [place] [id number] [place] [address] 86107- 9476 Feb, Chronic kidney disease, stage 4 (severe) N18.4 [place] [address] [place] [id number] [place] [address] 51722- 2808 Feb, Chronic kidney disease, stage 4 (severe) N18.4 [place] [address] [place] [id number] [place] [address] 64409- 2819 Feb, [place] [address] [place] [id number] [place] [address] 45849- 7956 Feb, Vitamin D deficiency, unspecified E55.9 [place] [address] [place] [id number] [place] [address] 34360- 3717 Jan, [place] [address] [place] [id number] [place] [address] 15685- 6714 Jan, [place] [address] [place] [id number] [place] [address] 65372- 8221 Dec, [facility], [place] [address] [place] [address] 08843- 4130 Dec, Chronic kidney disease, stage 4 (severe) N18.4 [facility], [place] [address] [place] [id number] [place] [address] 04109- 6158 Dec, Dysthymic disorder F34.1 and Generalized anxiety disorder F41.1 [facility], [place] [address] [place] [id number] [place] [address] 52273- 0460 Dec, [facility], [place] [address] [place] [id number] [place] [address] 00031- 4255 Dec, [facility], [place] [address] [place] [id number] [place] [address] 25621- 5239 Dec, Dysthymic disorder F34.1 and Generalized anxiety disorder F41.1 [place] [address] [place] [id number] [place] [address] 03747- 9990 Dec, Dysuria R30.0 ; Chronic kidney disease, stage 4 (severe) N18.4 ; Hypertension I10 ; Dyspepsia R10.13 ; Yeast dermatitis B37.2 ; Palpitations R00.2 ; Hypothyroid E03.9 ; Functional diarrhea K59.1 and Other seasonal allergic rhinitis J30.2 [facility] [address] [id number] [place] [address] 66998 -8322 Dec, [facility] [address] [id number] [place] [address] 30156 -9015 Nov, Dysuria R30.0 and Stress incontinence N39.3 [facility], [place] [address] [place] [id number] [place] [address] 61404- 3074 Nov, [facility], [place] [address] [id number] [place] [address] 67670- 1517 Nov, [facility], [place] [address] [id number] [place] [address] 11915- 7413 Nov, Osteoarthritis of knees, bilateral M17.0 [place] [address] [place] [address] [id number] [place] [address] 16849- 2717 Nov, Dysthymic disorder F34.1 and Generalized anxiety disorder F41.1 [place] [address] [place] [id number] [place] [address] 98331- 4838 Nov, [place] [address] [place] [id number] [place] [address] 52101- 5919 Nov, [place] [address] [id number] [place] [address] 98602- 7203 Nov, Urgency of urination R39.15 [place] [address] [place] [id number] [place] [address] 68472- 8473 Nov, [place] [id number] [place] [address] 77995- 4376 Nov, Chronic kidney disease, stage 4 (severe) N18.4 [place] [address] [place] [address] [id number] [place] [address] 06668- 9041 Oct, Hypertension I10 ; Coronary artery disease involving [place] coronary artery of [place] heart, angina presence unspecified I25.10 ; Palpitations R00.2 ; Hypothyroid E03.9 ; Right foot pain M79.671 ; Functional diarrhea K59.1 and Other seasonal allergic rhinitis J30.2 [place] [address] [place] [id number] [place] [address] 14089- 7879 Oct, Dysthymic disorder F34.1 and Generalized anxiety disorder F41.1 [place] [address] [place] [address] 15054- 8784 Sep, [place] [address] [place] [id number] [place] [address] [phone] [phone] Sep, [place] [address] [place] [id number] [place] [address] [phone] Sep, [place] [address] [place] [id number] [place] [address] [phone] 4408 Sep, [place] [address] [place] [id number] [place] [address] [phone] 29 Sep, 2015 [place] [address] [phone]- [phone] 27 Sep, 2015 Dysthymic disorder F34.1 and Generalized anxiety disorder F41.1 [place] [address] [address] [place] [id number] [place] [address] [phone]- 3999 16 Sep, 2015 Asthma with acute exacerbation in adult J45.901 ; Dysuria R30.0 ; Chronic kidney disease, stage 4 (severe) N18.4 and History of anemia Z86.[address] [address]- [address] 2015 Generalized anxiety disorder F41.1 and Dysthymic disorder F34.[address] 8[address]- 6[address] August, Screening breast examination Z12.39 and Acute recurrent maxillary sinusitis J01.01 [place] [id number] [place] [address] 93732- 5856 August, Osteoarthritis of knees, bilateral M17.[address] [address]- [address] August, Chronic kidney disease, stage 4 (severe) N18.4 ; Acute non- recurrent maxillary sinusitis J01.00 ; Urinary problem R39.89 ; Bowel habit changes R19.4 ; Functional diarrhea K59.1 and History of colon polyps Z86.010 [place] [address] [address] [place] [id number] [place] [address] 45121- 5574 Jul, Dysthymic disorder F34.1 and Generalized anxiety disorder F41.1 [place] [id number] [place] [address] 38061- [phone] Jul, [place] [id number] [place] [address] 52848- [phone] Jul, Dysthymic disorder F34.1 ; Generalized anxiety disorder F41.1 and 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 [facility], [place] [address] [address] 45[address] Jul, [facility] [place] [id number] [place] [address] 00169- 1926 Jun, [facility] [place] [id number] [place] [address] 73505- 3934 Jun, [facility] [place] [id number] [place] [address] 39699- 3278 May, [facility], [place] [id number] [place] [address] 90877- 0303 May, Dysthymic disorder F34.1 and Generalized anxiety disorder F41.1 [facility] [id number] [place] [address] 61165- 2300 Apr, Kidney disease N28.9 [facility] [id number] [place] [address] 55205- 6092 Apr, Dysthymic disorder F34.1 and Generalized anxiety disorder F41.1 [facility] [id number] [place] [address] 75285- 2199 Apr, Chronic kidney disease, stage 4 (severe) N18.4 [facility] [id number] [place] [address] 39564- 2245 Apr, Generalized anxiety disorder F41.1 ; Major depression, recurrent F33.9 and Sleep disturbance G47.9 [facility] [id number] [place] [address] 67128- 4206 Mar, Generalized anxiety disorder F41.1 and Dysthymic disorder F34.1 [facility] [id number] [place] [address] 52956- 7842 Mar, Generalized anxiety disorder F41.1 ; Dysthymic disorder F34.1 and Insomnia G47.00 [facility] [id number] [place] [address] 12386- 7333 Mar, [facility], [place] [id number] [place] [address] 76298- 6100 Mar, [facility], [place] [address] 69252- 5717 Mar, Osteoarthritis of knees, bilateral M17.[address] 10891- 0968 Mar, Hypertension I10 ; Hypothyroid E03.9 ; Dysthymic disorder F34.1 ; Chronic kidney disease, stage 4 (severe) N18.4 and Nausea & vomiting R11.2 [facility] [address] 78563- 5551 Mar, Generalized anxiety disorder F41.1 ; Dysthymic disorder F34.1 and Insomnia G47.[address] 92768- 1688 Mar, Dehydration E86.0 ; Chronic kidney disease, stage 4 (severe ) N18.4 and Nausea & vomiting R11.2 [facility] [id number] [place] [address] 42241 -3758 Mar, Gastroenteritis K52.9 [facility], [place] [id number] [place] [address] 67437- 5400 Mar, [facility], [place] [id number] [place] [address] 40344- 6356 Mar, [facility], [place] [id number] [place] [address] 31646- 5265 Feb, Dysthymic disorder F34.1 and Generalized anxiety disorder F41.[address] 34402- 0234 Jan, UTI (urinary tract infection) N39.0 ; Asthma J45.909 ; Coronary artery disease involving [place] coronary artery of [place] heart, angina presence unspecified I25.10 ; Hypertension I10 ; Hypothyroid E03.9 ; Vitamin D deficiency E55.9 ; Insomnia G47.00 ; Palpitations R00.2 ; Depressed F32.9 ; Restless leg G25.81 and Anxiety F41.9 [facility] [id number] [place] [address] 92927- 1944 Jan, Dysthymic disorder F34.1 and Generalized anxiety disorder F41.[address] 94365- 5218 Jan, [facility] [address] 43130- 0144 Dec, [facility] [address] 62938- 2813 Dec, Alkalosis 276.3 ; Chronic kidney disease, Stage IV (severe) 585.4 ; Hyperpotassemia 276.7 ; Secondary hyperparathyroidism, renal 588.81 ; Proteinuria 791.0 ; Unspecified vitamin D deficiency 268.9 ; Anemia in chronic kidney disease 285.21 ; Other and unspecified hyperlipidemia 272.4 ; Hypertension, essential, benign 401.1 and Chronic kidney disease (CKD), stage III (moderate) 585.3 [facility] [address] 34477- 8297 Dec, [facility] [address] 34286- 7346 Dec, Depressive disorder, not elsewhere classified 311 and Generalized anxiety disorder 300.02 [facility] [id number] [place] [address] 29568- 6170 Dec, [facility] [address] 88433- 1009 Dec, [address] 81536- 3760 Nov, Depressive disorder, not elsewhere classified 311 and Generalized anxiety disorder 300.[address] 95632- 7107 Nov, Arthritis of both knees 716.96 [facility] [id number] [place] [address] 68359- 2409 Nov, PAF (paroxysmal atrial fibrillation) 427.31 ; CAD (coronary artery disease) 414.00 ; Chest pain 786.50 and Chronic kidney disease (CKD) stage G4/A1, severely decreased glomerular filtration rate (GFR) between 15-29 mL/min/1.73 square meter and albuminuria creatinine ratio less than 30 mg/g 585.4 [facility] [address] 28851- 9343 Oct, Coronary atherosclerosis of unspecified type of vessel, koy[place] or graft 414.00 ; Chronic kidney disease, Stage IV (severe) 585.4 ; Hypertension 401.9 and Edema 782.3 [place] [id number] [place] [address] 27534- 2078 Oct, Depressive disorder, not elsewhere classified 311 and Generalized anxiety disorder 300.02 [place] [id number] [place] [address] 27175- 1521 Oct, Depressive disorder, not elsewhere classified 311 and Generalized anxiety disorder 300.02 [place] [id number] [place] [address] 56721- 3429 Oct, [facility] [place] [id number] [place] [address] 78870- 5307 Oct, [facility] [place] [id number] [place] [address] 13619- 1900 Sep, [facility] [place] [id number] [place] [address] 96558- 3692 Sep, Chronic kidney disease, Stage IV (severe) 585.4 [facility] [id number] [place] [address] 97558- 5961 Sep, [place] [place] [id number] [place] [address] 64988- 9913 Sep, Coronary atherosclerosis of unspecified type of vessel, k[place] or graft 414.00 ; Hypertension 401.9 ; Edema 782.3 and Hypothyroidism 244.9 [facility] [place] [id number] [place] [address] 11212- 2695 Sep, Coronary atherosclerosis of unspecified type of vessel, koy[place] or graft 414.00 ; Hypertension 401.9 ; Fibromyalgia 729.1 ; Edema 782.3 ; Hypothyroidism 244.9 and Anemia 285.9 [facility] [place] [address] 56609- 3175 Sep, Anxiety disorder, unspecified 300.00 and Depressive disorder , not elsewhere classified 311 [facility], [place] [address] 04244- 9665 Sep, [facility] [place] [address] 71040- 3236 August, Generalized anxiety disorder 300.02 [facility] [place] [address] 07590- 0093 August, Closed fracture of lateral malleolus 824.2 [facility], [place] [id number] [place] [address] 41528- 0169 Jul, [facility], [place] [address] 95328- 2459 Jul, [facility], [place] [id number] [place] [address] 45987- 7204 Jun, [facility], [place] [id number] [place] [address] 18287- 0197 Jun, [facility], [place] [id number] [place] [address] 28039- 9619 Jun, [facility], [place] [address] 53373- 1891 Jun, [facility], [place] [id number] [place] [address] 68777- 7456 Jun, [facility], [place] [id number] [place] [address] 08412- 2834 Jun, [facility] [place] [facility] [address] [id number] [place] [address]- 8771 May, 2014 [facility] [place] [facility] [address] [id number] [place] [address]- 7306 May, 2014 [facility] [place] [facility] [address] [id number] [place] [address]- 2996 18 May, 2014 [facility] [place] [facility] [address] [id number] [place] [address]- 8196 18 May, 2014 [facility] [place] [facility] [address] [id number] [place] 2216 16 May, 2014 [facility] [place] [facility] [address] [id number] [place] 6456 16 May, 2014 [facility] [place] [facility] [address] [id number] [place] [address]- 5816 13 May, 2014 [facility] [place] [facility] [address] [id number] [place] [address]- 8118 13 May, 2014 [facility] [place] [facility] [address] [id number] [place] [address]- 2125 10 May, 2014 [facility] [place] [facility] [address] [id number] [place] [address]- 6168 10 May, 2014 [facility] [place] [facility] [address] [id number] [place] [address]- 1193 Apr, [facility] [place] [facility] [address] [id number] [place] [address]- 6530 Apr, [facility] [place] [facility] [address] [id number] [place] [address]- 0481 Mar, [facility] [place] [facility] [address] [id number] [place]- 9986 Mar, [facility] [place] [facility] [address] [id number] [place] 3695 Mar, [facility] [place] [facility] [address] [id number] [place] [address]- 2242 15 Mar, 2014 [facility] [place] [facility] [address] [id number] [place] [address]- 0817 15 Mar, 2014 [facility] [place] [facility] [address] [id number] [place] [address]- 1566 15 Mar, 2014 [facility] [place] [facility] [address] [id number] [place] [address]- 7397 Mar, [facility] [place] [facility] [address] [id number] [place] [address]- 3210 Feb, [facility] [place] [facility] [address] [id number] [place] [address]- 4736 Feb, [facility] [place] [facility] [address] [id number] [place] [address]- 6461 Feb, [facility] [place] [facility] [address] [id number] [place] [address]- 6470 Jan, [facility] [place] [facility] [address] [id number] [place] [address]- 3319 Jan, [facility] [place] [facility] [address] [id number] [place] [address]- 7888 Jan, [facility] [place] [facility] [address] [id number] [place] [address]- 5157 Jan, [facility] [place] [facility] [address] [id number] [place] [address]- 4140 Jan, [facility] [place] [facility] [address] [id number] [place] [address]- 3537 Jan, [facility] [place] [facility] [address] [id number] [place] [address]- 4450 Jan, [facility] [place] [facility] [address] [id number] [place] [address]- 5549 Jan, [facility] [place] [facility] [address] [id number] [place] [address]- 9134 Jan, [facility] [place] [facility] [address] [id number] [place] [address]- 6829 Jan, [facility] [place] [facility] [address] [id number] [place] [address]- 7032 Nov, [facility] [place] [facility] [address] [id number] [place] [address]- 8013 Nov, [facility] [place] [facility] [address] [id number] [place] [address]- 2176 Nov, [facility] [place] [facility] [address] [id number] [place] [address]- 5160 Oct, [facility] [place] [facility] [address] [id number] [place] [address]- 6587 Oct, [facility] [place] [facility] [address] [id number] [place] [address]- 0571 Oct, [facility] [place] [facility] [address] [id number] [place] [address]- 4588 Oct, [facility] [place] [facility] [address] [id number] [place] [address]- 1100 Oct, [facility] [place] [facility] [address] [id number] [place] [address]- 0375 Oct, [facility] [place] [facility] [address] [id number] [place] [address]- 9845 Oct, [facility] [place] [facility] [address] [id number] [place] [address]- 8378 Oct, [facility] [place] [facility] [address] [id number] [place] [address]- 3473 Oct, [facility] [place] [facility] [address] [id number] [place] [address]- 5389 Sep, [facility] [place] [facility] [address] [id number] [place] [address]- 4229 Sep, [facility] [place] [facility] [address] [id number] [place] [address]- 6055 Sep, [facility] [place] [facility] [address] [id number] [place] [address]- 6473 Sep, [facility] [place] [facility] [address] [id number] [place] [address]- 1653 Sep, [facility] [place] [facility] [address] [id number] [place] [address]- 8172 Sep, [facility] [place] [facility] [address] [id number] [place] [address]- 1942 Sep, [facility] [place] [facility] [address] [id number] [place] [address]- 8321 Sep, [facility] [place] [facility] [address] [id number] [place] [address]- 2809 Sep, [facility] [place] [facility] [address] [id number] [place] [address]- 3137 August, [facility] [place] [facility] [address] [id number] [place] [address]- 0710 August, [facility] [place] [facility] [address] [id number] [place] [address]- 5258 August, [facility] [place] [facility] [address] [id number] [place] [address]- 7292 August, [facility] [place] [facility] [address] [id number] [place] [address]- 0545 August, [facility] [place] [facility] [address] [id number] [place] [address]- 2173 August, [facility] [place] [facility] [address] [id number] [place] [address]- 3486 Jul, [facility] [place] [facility] [address] [id number] [place] [address]- 5467 Jul, [facility] [place] [facility] [address] [id number] [place] [address]- 0758 Jul, [facility] [place] [facility] [address] [id number] [place] [address]- 8250 08 Jul, 2013 [facility] [place] [facility] [address] [id number] [place] [address]- 7772 Jul, [facility] [place] [facility] [address] [id number] [place] [address]- 5806 Jul, [facility] [place] [facility] [address] [id number] [place] [address]- 1433 Jun, [facility] [place] [facility] [address] [id number] [place] [address]- 3440 Jun, [facility] [place] [facility] [address] [id number] [place] [address]- 2575 May, [facility] [place] [facility] [address] [id number] [place] [address]- 3639 May, [facility] [place] [facility] [address] [id number] [place] [address]- 7536 May, [facility] [place] [facility] [address] [id number] [place] [address]- 6142 May, [facility] [place] [facility] [address] [id number] [place] [address]- 0121 Apr, [facility] [place] [facility] [address] [id number] [place] [address]- 0443 Apr, [facility] [place] [facility] [address] [id number] [place] [address]- 9618 Mar, [facility] [place] [facility] [address] [id number] [place] [address]- 0546 Mar, [facility] [place] [facility] [address] [id number] [place] [address]- 8937 Mar, [facility] [place] [facility] [address] [id number] [place] [address]- 8019 Mar, [facility] [place] [facility] [address] [id number], [place] [address]- 2990 Mar, [facility] [place] [facility] [address] [id number] [place] [address]- 7855 Mar, [facility] [place] [facility] [address] [id number], [place] [address]- 6450 Feb, [facility] [place] [facility] [address] [id number] [place] [address]- 3732 Feb, [facility] [place] [facility] [address] [id number], [place] [address]- 3677 Feb, [facility] [place] [facility] [address] [id number] [place] [address]- 6432 Feb, [facility] [place] [facility] [address] [id number] [place] [address]- 3683 Feb, [facility] [place] [facility] [address] [id number], [place] [address]- 0412 Feb, [facility] [place] [facility] [address] [id number] [place] [address]- 4061 Jan, [facility] [place] [facility] [address] [id number] [place] [address]- 2837 Jan, [facility] [place] [facility] [address] [id number] [place] [address]- 1293 Jan, [facility] [place] [facility] [address] [id number], [place] [address]- 1411 Jan, [facility] [place] [facility] [address] [id number], [place] [address]- 7943 08 Jan, 2013 [facility] [place] [facility] [address] [id number], [place] [address]- 6993 Jan, [facility] [place] [facility] [address] [id number][place] 7244 12 Dec, 2012 [facility] [place] [facility] [address] [id number] [place] 4723 09 Dec, 2012 [facility] [place] [facility] [address] [id number] [place] [address]- 2546 Nov, [facility] [address] [id number] [place] [address]- 6662 Nov, [facility] [address] [id number] [place] [address] 2546 Oct, [facility] [address] [id number] [place] [address]- 8419 Oct, [facility] [address] [id number] [place] [address]- 7402 Oct, [facility] [address] [id number] [place] [address]- 6364 Oct, [facility] [address] [id number] [place] [address]- 2354 Oct, [facility] [address] [id number] [place] [address]- 1349 Oct, [facility] [address] [id number] [place] [address]- 9383 Sep, [facility] [address] [id number] [place] [address]- 1288 Sep, [facility] [address] [id number] [place] [address]- 9689 Sep, [facility] [address] [id number] [place] [address]- 0782 Sep, [facility] [address] [id number] [place] [address]- 2442 August, [facility] [place] [facility] [address] [id number] [place] [address]- 8384 August, [facility] [address] [id number] [place] [address]- 4856 August, [facility] [address] [id number] [place] [address]- 6802 August, [facility] [address] [id number] [place] [address]- 6991 August, [facility] [address] [id number] [place] [address]- 2737 Jul, [facility] [address] [id number] [place] [address]- 4728 Jul, [facility] [address] [id number] [place] [address]- 3144 Jul, [facility] [address] [id number] [place] [address]- 9479 Jul, [facility] [address] [id number] [place] [address]- 0058 Jul, [facility] [address] [id number] [place] [address]- 2041 Jul, [facility] [address] [id number] [place] [address]- 6041 Jul, [facility] [address] [id number] [place] [address]- 4700 Jul, [facility] [address] [id number], [place] [address]- 5753 Jul, [facility] [address] [id number], [place] [address]- 7580 Jul, [facility] [address] [id number] [id number] Jun, [facility] [address] [id number] [place] [address]- 9103 Jun, [facility] [address] [id number] [place] [address]- 1271 Jun, [facility] [address] [id number], [place] [address]- 6704 Jun, [facility] [address] [id number] [place] [address]- 0166 Jun, [facility] [address] [id number] [place] [address] May, [facility] [address] [id number] [place] [address] May, [facility] [address] [facility] [id number] [place] [address] May, [facility] [address] [id number] [place] [address] Apr, [facility] [address] [id number] [place] [address] Apr, [facility] [address] [id number] [place] [address] Apr, [facility] [address] [facility] [id number] [place] [address] Apr, [facility] [address] [facility] [address] [id number] [place] [address] Apr, [facility] [address] [facility] [id number] [place] [address] Apr, [facility] [address] [facility] [id number] [place] [address] Mar, [facility] [address] [id number] [place] [address] Mar, [facility] [place] [facility] [address] [id number] [place] [address] Mar, [facility] [place] [facility] [address] [id number] [place] [address] Mar, [facility] [place] [facility] [address] [facility] [id number] [place] [address] Feb, [facility] [place] [facility] [address] [facility] [address] [id number] [place] [address] Feb, [facility] [place] [facility] [address] [id number] [place] [address] Feb, [facility] [place] [facility] [address] [id number] [place] [address] Feb, [facility] [place] [facility] [address] [id number] [place] [address] Feb, [facility] [place] [facility] [address] [id number] [place] [address] Feb, [facility] [place] [facility] [address] [id number] [place] [address] Feb, [facility] [place] [facility] [address] [id number] [place] [address] Feb, [facility] [place] [facility] [address] [facility] [id number] [place] [address] Feb, [facility] [place] [facility] [address] [id number] [place] [address] 79[address] Feb, [facility] [place] [facility] [address] [id number] [place] [address] Feb, [facility] [place] [facility] [address] [id number] [place] [address] Feb, [facility] [place] [facility] [address] [facility] [id number] [place] [address] Feb, [facility] [place] [facility] [address] [id number] [place] [address] Feb, [facility] [place] [facility] [address] [id number] [place] [address] Feb, [facility] [place] [facility] [address] [id number] [place] [address] Feb, [facility] [place] [facility] [address] [id number] [place] [address] Jan, [facility] [place] [facility] [address] [id number] [place] [address] 31 Jan, 2012 [facility] [place] [facility] [address] [id number] [place] [address] 31 Jan, 2012 [facility] [place] [facility] [address] [id number] [place] [address] 31 Jan, 2012 [facility] [place] [facility] [address] [id number] [place] [address] 30 Jan, 2012 [facility] [place] [facility] [address] [id number] [place] [address] Jan, [facility] [place] [facility] [address] [id number] [place] [address] 25 Jan, 2012 [facility] [place] [facility] [address] [id number] [place] [address] 16 Jan, 2012 [facility] [place] [facility] [address] [id number] [place] [address] 16 Jan, 2012 [facility] [place] [facility] [address] [id number], [place] [address] 15 Jan, 2012 [facility] [place] [facility] [address] [id number] [place] [address] 15 Jan, 2012 [facility] [place] [facility] [address] [id number], [place] [address] Jan, [facility] [place] [facility] [address] [id number], [place] [address] 26 Dec, 2011 [facility] [place] [facility] [address] [id number], [place] [address] 26 Sep, 2011 [facility] [place] [facility] [address] [id number] [place] [address] 24 Sep2011 [facility] [place] [facility] [address] [id number], [place] [address] 23 Sep, 2011 [facility] [place] [facility] [address] [id number], [place] [address] 22 Sep, 2011 [facility] [place] [facility] [address] [id number] [place] [address] 21 Sep, 2011 [facility] [place] [facility] [address] [id number] [place] [address]46 20 Sep, 2011 [facility] [place] [facility] [address] [id number] [place] [address] 2546 20 Dec, 2011 [facility] [place] [facility] [address] [id number] [place] [address] 07 Sep, 2011 [facility] [place] [facility] [address] [id number] [place] [address] 2546 06 Sep, 2011 [facility] [place] [facility] [address] [id number] [place] [address] 06 Sep, 2011 [facility] [place] [facility] [address] [id number] [place] [address] 2546 05 Dec, 2011 [facility] [facility] [address] [id number] [place] [address] 23 Nov, 2011 [facility] [place] [facility] [address] [id number] [place] [address] 17 Nov, 2011 [facility] [place] [facility] [address] [id number] [place] [address] 13 Nov, 2011 [facility] [place] [facility] [address] [id number] [place] [address] 10 Nov, 2011 [facility] [place] [facility] [address] [id number] [place] [address] 2546 08 Nov, 2011 [facility] [place] [facility] [address] [id number] [place] [address] 2547 Nov, [facility] [place] [facility] [address] [id number] [place] [address] Nov, [facility] [place] [facility] [address] [id number] [place] [address]6 Nov, [facility] [place] [facility] [address] [id number] [place] [address] Oct, [facility] [place] [facility] [address] [id number] [place] [address] Oct, [facility] [place] [facility] [address] [id number] [place] [address] Oct, [facility] [place] [facility] [address] [id number] [place] [address] Oct, [facility] [place] [facility] [address] [id number] [place] [address] Oct, [facility] [place] [facility] [address] [id number] [place] [address] Oct, [facility] [place] [facility] [address] [id number] [place] [address] Oct, [facility] [place] [facility] [address] [id number] [place] [address] Sep, [facility] [place] [facility] [address] [id number] [place] [address]377 Sep, [facility] [place] [facility] [address] [id number] [place] [address] August, [facility] [place] [facility] [address] [id number] [place] [address] August, [facility] [facility] [address] [id number] [place] [address] August, [facility] [place] [facility] [address] [id number] [place] [address] August, [facility] [place] [facility] [address] [id number] [place] [address] Jul, [facility] [place] [facility] [address] [id number] [place] [address] Jul, [facility] [place] [facility] [address] [id number] [place] [address] 9565 Jul, [facility] [place] [facility] [address] [id number] [place] [address]106 Jul, [facility] [place] [facility] [address] [id number] [place] [address] 7972 Jul, [facility] [place] [facility] [address] [id number] [place] [address] Jul, [facility] [place] [facility] [address] [id number] [place] [address] 4226 Jul, [facility] [place] [facility] [address] [id number] [place] [address] Jul, [facility] [place] [facility] [address] [id number] [place] [address] 4981 Jul, [facility] [place] [facility] [address] [id number] [place] [address]- 9585 Jun, [facility] [place] [facility] [address] [id number] [place] [address] 8586 Jun, [facility] [place] [facility] [address] [id number] [place] [address] 15 Jun, 2011 [facility] [address] [id number] [place] [address]- [address]123 14 Jun, 2011 [facility] [address] [id number] [place] [address] 8[address] Jun, [facility] [address] [id number] [place] [address] 8367 Jun, [facility] [facility] [address] [id number] [place] [address] Jun, [facility] [address] [id number] [place] [address] May, [facility] [facility] [address] [id number] [place] [address] 2707 24 May, 2011 [facility] [address] [id number] [place] [address] 1627 16 May, 2011 [facility] [facility] [address] [id number] [place] [address]376 16 May, 2011 [facility] [address] [id number] [place] [address] 03 May, 2011 [facility] [address] [id number] [place] [address]46 27 Apr, 2011 [facility] [address] [id number] [place] [address] 2546 Apr, [facility] [address] [id number] [place] [address] 2540 Apr, [facility] [address] [id number] [place] [address] Apr, [facility] [address] [id number] [place] [address] 8146 Apr, [facility] [address] [id number] [place] [address] 98[address] Mar, [facility] [address] [id number] [place] [address] Mar, [facility] [address] [id number] [place] [address] 9[address] Mar, [facility] [address] [id number] [place] [address] Mar, [facility] [address] [id number] [place] [address] Mar, [facility] [address] [id number] [place] [address] 2545 Mar, [facility] [address] [id number] [place] [address] 2546 Mar, [facility] [address] [id number] [place] [address]- [address]46 11 Feb, 2011 [facility] [address] [id number] [place] [address] Feb, [facility] [address] [id number] [place] [address]- 8760 Feb, [facility] [address] [id number] [place] [address]- 1412 Feb, [facility] [address] [id number] [place] [address] 1516 Jan, [facility] [address] [id number] [place] [address] 0201 Jan, [facility] [address] [id number] [place] [address] 4659 Jan, [facility] [address] [id number] [place] [address] 6257 Jan, [facility] [address] [id number] [place] [address]- 3581 Nov, [facility] [address] [id number] [place] [address] 3118 Mar, [facility] [address] [id number] [place] [address]- 0295 Mar, [facility] [address] [id number] [place] [address]- 9276 Mar, [facility] [address] [id number], [place] [address] Mar, [facility] [address] [id number], [place] [address] Mar, [facility] [address] [id number] [place] [address]- 5556 Mar, [facility] [address] [id number] [place] [address]- 1099 Feb, [facility] [address] [id number] [place] [address]- 7014 Feb, [facility] [address] [facility] [id number] [place] [address] Jan, [facility] [place] [address] [facility] [address] [id number] [place] [address]- [address]331 Jan, [facility] [place] [address] [facility] [id number] [place] [address] Jan, IMMUNIZATIONS No Known Immunizations SOCIAL HISTORY Never Assessed REASON FOR VISIT f/u PLAN OF CARE Activity Details Follow Up Appointments every other week, For 1/2 to 1 hour. 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
--- OUTSIDE RECORDS SUMMARY | 2018-05-29 09:13 | XMS REPORT ---
Author Author CAMERON OGLESBY [facility] Address [address] [place] [address] Care Team Providers Care Safe Deposit Attendant Name Role Phone CAMERON OGLESBY Unavailable PROBLEMS Type Condition ICD9-CM Code KVA57-IV Code Onset Dates Condition Status SNOMED Code Problem Long-term use of high-risk medication Z79.899 Active 359674118 Problem Abnormal chest CT R93.8 Active 671179603 Problem Low back pain M54.5 Active 221421813 Problem Generalized anxiety disorder F41.1 Active 30066764 Problem Dysthymic disorder F34.1 Active 29174612 Problem Coronary artery disease involving [place] coronary artery of [place] heart, angina presence unspecified I25.10 Active 5580637744303 Problem Depressed F32.9 Active 94671504 Problem Fibromyalgia M79.7 Active 872654874 Problem Hypothyroid E03.9 Active 59352651 Problem Essential (primary) hypertension I10 Active 05093536 Problem Insomnia G47.00 Active 037091436 Problem Vitamin D deficiency E55.9 Active 74651040 Problem Anemia in chronic kidney disease D63.1 Active 859875218751982 Problem Chronic kidney disease, unspecified N18.9 Active 586181780 Problem Body mass index (BMI) of 40.0-44.9 in adult Z68.41 Active 971491114 Problem Stage 3 chronic kidney disease N18.3 Active 066108476 Problem Restless leg G25.81 Active 96035653 Problem Palpitations R00.2 Active 69955090 Problem Asthma J45.909 Active 904670541 Problem Primary osteoarthritis of left knee M17.12 Active 880519010 Problem Bipolar disorder, current episode manic without psychotic features F31.10 Active 068533094 Problem Mood disorder F39 Active 50164642 Problem Degenerative tear of medial meniscus of left knee M23.204 Active 747741400 Problem History of colon polyps Z86.010 Active 591881655 Problem Asthma with acute exacerbation in adult J45.901 Active 822836456 Problem Chronic kidney disease, stage 4 (severe) N18.4 Active 950612120 Problem Functional diarrhea K59.1 Active 68922302 Problem Hypokalemia E87.6 Active 55350903 Problem Mixed stress and urge urinary incontinence N39.46 Active 740062680 Problem History of anemia Z86.2 Active 496408611 Problem Other seasonal allergic rhinitis J30.2 Active 966216771 ALLERGIES No Information ENCOUNTERS Encounter Location Date Diagnosis [place] [address] [address] August, [place] [address] 08985- 2474 Jul, [place] [address] 46812- 2702 Jul, Chronic kidney disease, stage 4 (severe) N18.4 [place] [address] 25186- 8658 Jul, [place] [address] 35848- 1693 Jul, Restless leg G25.81 ; Mixed stress and urge urinary incontinence N39.46 and Fibromyalgia M79.7 [place] [address] 52334- 5905 Jul, Chronic kidney disease, stage 4 (severe) N18.4 [place] [address] 66408- 0804 Jun, Orthostatic hypotension I95.1 ; Chronic kidney disease, stage 4 (severe) N18.4 ; Chest wall discomfort R07.89 and Body mass index (BMI) of 40.0-44.9 in adult Z68.41 [place] [address] 71933- 4184 Jun, [place] [address] 66759- 5455 Jun, Orthostatic hypotension I95.1 [place] [address] [place] [id number] [place] [address] 96133- 5048 Jun, [facility] [address] [place] [id number] [place] [address] 59920 -9091 Jun, Orthostatic hypotension I95.1 ; Dysuria R30.0 and Acute cystitis without hematuria N30.00 [facility] [address] [place] [id number] [place] [address] 41185- 3094 Jun, [facility] [address] [place] [id number] [place] [address] 51016- 9728 Jun, Chronic kidney disease, stage 4 (severe) N18.4 [facility] [address] 46160- 2003 Jun, Fibromyalgia M79.7 [facility] [address] [place] [id number] [place] [address] 94115- 7174 Jun, [facility] [address] [place] [id number] [place] [address] 25869- 1562 Jun, [facility] [address] [place] [id number] [place] [address] 14719- [address] May, [address] R93.8 and Stage 3 chronic kidney disease N18.3 [facility] [address] [place] [id number] [place] [address] 55049- 6914 May, Chronic kidney disease, stage 4 (severe) N18.4 [facility] [address] [place] [id number] [place] [address] 50923- 9256 May, Chronic kidney disease, stage 4 (severe) N18.4 [facility] [address] [place] [id number] [place] [address] 71294- [address] May, Ab[address] chest [address] R93.8 [facility] [address] [place] [id number] [place] [address] 79973- 8102 May, [facility] [address] 03558- 5484 May, [facility] [address] [address] May, Generalized anxiety disorder F41.1 and Major depressive disorder, recurrent episode with anxious distress F33.9 [facility] [address] [address] 9434 May, Mood disorder F39 [facility] [id number] [place] [address] 51549- 8054 Apr, [facility] [id number] [place] [address] 30701- 8197 Apr, Infected skin lesion L08.9 and Muscle strain of right shoulder region, initial encounter S46.911A [place] [address] [place] [address] 27126- 6208 Apr, Generalized anxiety disorder F41.1 and Major depressive disorder, recurrent episode with anxious distress F33.9 [facility] [address] [address]- 2876 Apr, [facility] [id number] [place] [address] 30141- 7155 Apr, Recent urinary tract infection Z87.440 and Hypothyroid E03.9 [facility] [address] [address] 4781 Apr, Generalized anxiety disorder F41.1 and Major depressive disorder, recurrent episode with anxious distress F33.9 [facility] [address] [address]- 6601 Apr, Recent urinary tract infection Z87.440 [facility] [id number] [place] [address] 13479- 7926 Mar, [facility] [address] [place] [id number] [address] Mar, Dysuria R30.0 ; Acute cystitis without hematuria N30.00 and BMI 40.0-44.9, adult Z68.41 [place] [id number] [place] [address] 15579- 7262 14 Mar, 2017 [place] [address] [place] [id number] [place] [address] 63319- 6138 Mar, [place] [address] [place] [id number] [place] [address] 89620- 5445 Mar, Generalized anxiety disorder F41.1 and Major depressive disorder, recurrent episode with anxious distress F33.9 [place] [address] [place] [id number] [place] [address] 03286- 2878 Feb, Conjunctivitis, bacterial H10.9 [place] [address] [place] [id number] [place] [address] 87388- 6581 Feb, [facility] [address] [place] [id number] [place] [address] 37056 -7857 Feb, Conjunctivitis, bacterial H10.9 [place] [address] [place] [id number] [place] [address] 28712- 8418 Feb, [facility] [address] [place] [id number] [place] [address] 03162 -4677 Feb, Dysuria R30.0 ; Acute cystitis N30.00 and BMI 40.0-44.9, adult Z68.41 [place] [address] [place] [id number] [place] [address] 84951- 4298 Feb, [place] [address] [place] [id number] [place] [address] 07028- 4326 Feb, Generalized anxiety disorder F41.1 and Major depressive disorder, recurrent episode with anxious distress F33.9 [place] [address] [place] [id number] [place] [address] 44504- 6907 Feb, Mood disorder F39 and BMI 40.0-44.9, adult Z68.41 [place] [address] [place] [id number] [place] [address] 45745- 8335 Jan, [place] [address] [place] [id number] [place] [address] 17838- 8150 Jan, [place] [address] 17176- 0401 Jan, Hypothyroid E03.9 [facility] [address] [place] [id number] [place] [address] 27241- 7419 Jan, [place] [address] 32114- 8413 Jan, Chronic kidney disease, unspecified N18.9 ; Hypokalemia E87.6 ; Essential (primary) hypertension I10 ; Fibromyalgia M79.7 ; Coronary artery disease involving [place] coronary artery of [place] heart, angina presence unspecified I25.10 ; Hypothyroid E03.9 and Encounter for immunization Z23 [place] [address] [place] [id number] [place] [address] 89375- 4547 Jan, Hypothyroid E03.9 [place] [address] [place] [id number] [place] [address] 13052- 9713 Jan, [place] [address] [place] [id number] [place] [address] 08893- 9747 Dec, Vitamin D deficiency E55.9 [place] [address] [place] [id number] [place] [address] 80030- 3859 28 Dec, 2016 Primary osteoarthritis of left knee M17.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 [place] [address] [place] [id number] [place] [address] 80572- 8446 19 Dec, 2016 Fibromyalgia M79.7 [facility] [address] [place] [id number] [place] [address] 60438- 2148 18 Dec, 2016 Mood disorder F39 [place] [address] [place] [id number] [place] [address] 68252- 5270 13 Dec, 2016 [place] [address] [place] [id number] [place] [address] 70081- 0483 Dec, Generalized anxiety disorder F41.1 and Major depressive disorder, recurrent episode with anxious distress F33.9 [facility] [address] [address]- 8575 11 Dec, 2016 [facility] [id number] [place] [address] 33058- 6955 08 Dec, 2016 Streptococcal meningitis G00.2 [facility] [id number] [place] [address] 34061- 1314 07 Dec, 2016 Streptococcal meningitis G00.2 [facility] [id number] [place] [address] 00513- 8818 07 Dec, 2016 [facility] [id number] [place] [address] 40250- 8779 Dec, 2016 [facility] [id number] [place] [address] 89644- 6398 Dec, 2016 Streptococcal meningitis G00.2 [facility] [id number] [place] [address] 32325- 6203 Dec, 2016 Major depressive disorder, recurrent episode with anxious distress F33.9 [facility] [id number] [place] [address] 98972- 7481 Nov, Fever, unspecified fever cause R50.9 [facility] [address] [address]- 4522 Nov, [facility] [id number] [place] [address] 21947- 2670 Nov, Hypothyroid E03.9 [facility] [address], [place] [address]- 5924 Nov, Generalized anxiety disorder F41.1 and Major depressive disorder, recurrent episode with anxious distress F33.9 [facility] [address], [place] [address]- 9058 Nov, [facility] [id number] [place] [address] [id number] Oct, Dental examination Z01.20 [facility] [id number] [place] [address] 22117- 8390 Oct, Generalized anxiety disorder F41.1 and Major depressive disorder, recurrent episode with anxious distress F33.9 [facility] [address] [place] [id number] [place] [address] 45170- 8326 Oct, Chronic kidney disease, stage 4 (severe) N18.4 [facility] [address] [place] [id number] [place] [address] 99347- 0696 Oct, [facility] [address] [place] [id number] [place] [address] 88775- 3111 Oct, Fibromyalgia M79.7 [facility] [address] [place] [id number] [place] [address] 58463- 9699 Oct, [place] [address] [place] [id number] [place] [address] 92589- 7053 Oct, Generalized anxiety disorder F41.1 ; Major depressive disorder, recurrent episode with anxious distress F33.9 and Bipolar disorder, current episode manic without psychotic features F31.10 [place] [address] [place] [id number] [place] [address] 44012- 5206 Sep, [place] [address] [place] [id number] [place] [address] 51222- 7163 Sep, [facility] [address] [place] [id number] [place] [address] 76958- 2967 Sep, Vitamin D deficiency E55.9 [facility] [address] [place] [id number] [place] [address] 85889- 6020 Sep, Vitamin D deficiency E55.9 [place] [address] [place] [id number] [place] [address] 55078- 1818 Sep, [facility] [address] [place] [id number] [place] [address] 76731- 8865 Sep, Chronic kidney disease, stage 4 (severe) N18.4 ; Hypothyroid E03.9 ; Restless leg G25.81 ; Fibromyalgia M79.7 ; Essential ( primary) hypertension I10 ; Vitamin D deficiency E55.9 ; Dyspepsia R10.13 ; Anemia in chronic kidney disease D63.1 ; Chronic kidney disease, unspecified N18.9 ; Coronary artery disease involving [place] coronary artery of [place] heart , angina presence unspecified I25.10 ; Screening breast examination Z12.39 and Low back pain M54.5 [place] [address] 18574- 2469 August, Generalized anxiety disorder F41.1 and Major depressive disorder, recurrent episode with anxious distress F33.9 [place] [address] 28240- 1440 August, Generalized anxiety disorder F41.1 and Major depressive disorder, recurrent episode with anxious distress F33.9 [place] [address] 04621- 7783 August, Fibromyalgia M79.7 [place] [address] 26288- 0922 Jul, Generalized anxiety disorder F41.1 and Major depressive disorder, recurrent episode with anxious distress F33.9 [place] [address] [place] [id number] [place] [address] 95732- 4080 Jul, Fibromyalgia M79.7 [place] [address] [place] [id number] [place] [address] 28178- 9908 Jul, Generalized anxiety disorder F41.1 [place] [address] [place] [id number] [place] [address] 17077- 1814 May, [place] [address] 20214- 4731 May, Hypothyroid E03.9 [place] [address] [place] [id number] [place] [address] 92134- 0804 May, Chronic kidney disease, stage 4 (severe) N18.4 ; Hypothyroid E03.9 ; Restless leg G25.81 ; Fibromyalgia M79.7 ; Essential ( primary) hypertension I10 ; Vitamin D deficiency E55.9 ; Dyspepsia R10.13 ; Acute non-recurrent maxillary sinusitis J01.00 ; Anemia in chronic kidney disease D63.1 ; Chronic kidney disease, unspecified N18.9 and Coronary artery disease involving [place] coronary artery of [place] heart, angina presence unspecified I25.10 [place] [address] [place] [id number] [place] [address] 23862- 9714 May, Vitamin D deficiency, unspecified E55.9 [place] [address] [place] [id number] [place] [address] 30130- 6448 May, Generalized anxiety disorder F41.1 and Major depressive disorder, recurrent episode with anxious distress F33.9 [place] [address] [place] [id number] [place] [address] 12405- 1400 Apr, Pain in right knee M25.561 and Pain in left knee M25.562 [place] [address] [place] [id number] [place] [address] 00892- 1936 Apr, [place] [address] [place] [id number] [place] [address] 65481- 7212 Apr, [place] [address] [place] [id number] [place] [address] 27590- 0514 Apr, [place] [address] [place] [id number] [place] [address] 95319- 8391 Mar, Generalized anxiety disorder F41.1 and Major depressive disorder, recurrent episode with anxious distress F33.9 [place] [address] [place] [id number] [place] [address] 28788- 7184 Mar, Generalized anxiety disorder F41.1 and Major depressive disorder, recurrent episode with anxious distress F33.9 [place] [address] [place] [id number] [place] [address] 66761- 0702 Mar, [place] [address] [place] [id number] [place] [address] 61492- 8615 Mar, [place] [address] [place] [id number] [place] [address] 69613- 7292 Mar, [facility] [address] 26241- 0577 Mar, Asthma J45.909 and Fibromyalgia M79.7 [place] [address] 12147- 4134 Mar, Chronic kidney disease, stage 4 (severe) N18.4 ; Vitamin D deficiency E55.9 and Essential (primary) hypertension I10 [place] [address] [place] [id number] [place] [address] 03621- 5951 Feb, [place] [address] 24801- 4105 Feb, Dysuria R30.0 ; Mixed stress and urge urinary incontinence N39.46 ; Fibromyalgia M79.7 and Chronic kidney disease, stage IV (severe) N18.4 [place] [address] [place] [id number] [place] [address] 76398- 7499 Feb, Chronic kidney disease, stage 4 (severe) N18.4 [place] [address] [place] [id number] [place] [address] 27336- 9060 Feb, Chronic kidney disease, stage 4 (severe) N18.4 [place] [address] [place] [id number] [place] [address] 37494- 1126 Feb, [place] [address] [place] [id number] [place] [address] 84147- 0657 Feb, Vitamin D deficiency, unspecified E55.9 [place] [address] [place] [id number] [place] [address] 50557- 7973 Jan, [place] [address] [place] [id number] [place] [address] 23023- 7411 Jan, [place] [address] [place] [id number] [place] [address] 17699- 3062 Dec, [facility] [address] [place] [address] 39517- 6252 Dec, Chronic kidney disease, stage 4 (severe) N18.4 [facility] [address] [place] [id number] [place] [address] 24389- 9688 Dec, Dysthymic disorder F34.1 and Generalized anxiety disorder F41.1 [place] [address] [place] [id number] [place] [address] 82127- 9288 Dec, [facility] [address] [place] [id number] [place] [address] 70437- 4222 Dec, [place] [address] [place] [id number] [place] [address] 74309- 4899 Dec, Dysthymic disorder F34.1 and Generalized anxiety disorder F41.1 [place] [address] [place] [id number] [place] [address] 12908- 2431 Dec, Dysuria R30.0 ; Chronic kidney disease, stage 4 (severe) N18.4 ; Hypertension I10 ; Dyspepsia R10.13 ; Yeast dermatitis B37.2 ; Palpitations R00.2 ; Hypothyroid E03.9 ; Functional diarrhea K59.1 and Other seasonal allergic rhinitis J30.2 [facility] [id number] [place] [address] 94641 -0493 Dec, [facility] [id number] [place] [address] 61645 -4765 Nov, Dysuria R30.0 and Stress incontinence N39.3 [facility] [address] [place] [id number] [place] [address] 07686- 7788 Nov, [facility] [address] [place] [id number] [place] [address] 86941- 5418 Nov, [facility] [address] [place] [id number] [place] [address] 73620- 3767 Nov, Osteoarthritis of knees, bilateral M17.0 [facility] [address] [place] [id number] [place] [address] 13900- 2236 Nov, Dysthymic disorder F34.1 and Generalized anxiety disorder F41.1 [facility] [address] [place] [id number] [place] [address] 08091- 7920 Nov, [facility] [address] [place] [id number] [place] [address] 41490- 8892 Nov, [facility] [address] [place] [id number] [place] [address] 59908- 1472 Nov, Urgency of urination R39.15 [place] [address] [place] [id number] [place] [address] 25173- 5490 Nov, [place] [address] [place] [id number] [place] [address] 95853- 0119 Nov, Chronic kidney disease, stage 4 (severe) N18.4 [place] [address] [place] [id number] [place] [address] 20048- 9203 Oct, Hypertension I10 ; Coronary artery disease involving [place] coronary artery of [place] heart, angina presence unspecified I25.10 ; Palpitations R00.2 ; Hypothyroid E03.9 ; Right foot pain M79.671 ; Functional diarrhea K59.1 and Other seasonal allergic rhinitis J30.2 [place] [address] [place] [id number] [place] [address] 04945- 9566 Oct, Dysthymic disorder F34.1 and Generalized anxiety disorder F41.1 [facility] [address] [id number] [place] [address] 83096- 3721 Sep, [facility] [address] [place] [id number] [place] [address] 84403- 5616 Sep, [facility] [address] [id number] [place] [address] 51276- 4856 Sep, [facility] [address] [place] [id number] [place] [address] 94218- 0990 Sep, [facility] [address] [place] [id number] [place] [address] 58863- 9171 29 Sep, 2015 [place] [address] [place] [address] [id number] [place] [address] 35073- 3935 27 Sep, 2015 Dysthymic disorder F34.1 and Generalized anxiety disorder F41.1 [place] [address] 75986- 8561 16 Sep, 2015 Asthma with acute exacerbation in adult J45.901 ; Dysuria R30.0 ; Chronic kidney disease, stage 4 (severe) N18.4 and History of anemia Z86.[address] 16685- 5274 2015 Generalized anxiety disorder F41.1 and Dysthymic disorder F34.[address] 46291- 1839 August, Screening breast examination Z12.39 and Acute recurrent maxillary sinusitis J01.01 [place] [id number] [place] [address] 31126- 2050 August, Osteoarthritis of knees, bilateral M17.[address] 09446- 1727 August, Chronic kidney disease, stage 4 (severe) N18.4 ; Acute non- recurrent maxillary sinusitis J01.00 ; Urinary problem R39.89 ; Bowel habit changes R19.4 ; Functional diarrhea K59.1 and History of colon polyps Z86.010 [place] [address] [place] [id number] [place] [address] 50674- 4749 Jul, Dysthymic disorder F34.1 and Generalized anxiety disorder F41.[address] 56807- 8709 Jul, [place] [id number] [place] [address] 63473- 4235 Jul, Dysthymic disorder F34.1 ; Generalized anxiety disorder F41.1 and long-term use of drug Z79.899 [facility] [address] [place] [address] 26313- 0169 Jul, [facility] [address] [id number] [place] [address] 80600- 8286 Jun, [facility] [id number] [place] [address] 43549- 4855 Jun, [facility] [address] [id number] [place] [address] 65929- 2797 May, [facility] [address] [id number] [place] [address] 37766- 5440 May, Dysthymic disorder F34.1 and Generalized anxiety disorder F41.1 [place] [address] [place] [id number] [place] [address] 70549- 1695 Apr, Kidney disease N28.9 [place] [address] [place] [address] [id number] [place] [address] 868[address]- 8084 Apr, Generalized anxiety disorder F41.1 and Dysthymic disorder F34.1 [place] [id number] [place] [address] [phone]- [phone] Apr, Chronic kidney disease, stage 4 (severe) N18.4 [place] [id number] [place] [address] [phone] Apr, Generalized anxiety disorder F41.1 ; Major depression, recurrent F33.9 and Sleep disturbance G47.9 [place] [id number] [place] [address] [phone]- [phone] Mar, Generalized anxiety disorder F41.1 and Dysthymic disorder F34.1 [place] [place] [id number] [place] [address] 22697- 6026 Mar, Generalized anxiety disorder F41.1 ; Dysthymic disorder F34.1 and Insomnia G47.00 [place] [id number] [place] [address] 35680- 9742 Mar, [place] [id number] [place] [address] 90196- 4246 Mar, [facility] [address] 65902- 5883 Mar, Osteoarthritis of knees, bilateral M17.[address] 94947- 1993 Mar, Hypertension I10 ; Hypothyroid E03.9 ; Dysthymic disorder F34.1 ; Chronic kidney disease, stage 4 (severe) N18.4 and Nausea & vomiting R11.2 [place] [address] 97509- 4773 Mar, Generalized anxiety disorder F41.1 ; Dysthymic disorder F34.1 and Insomnia G47.[address] 57814- 7112 Mar, Dehydration E86.0 ; Chronic kidney disease, stage 4 (severe ) N18.4 and Nausea & vomiting R11.2 [facility] [id number] [place] [address] 99679 -5494 Mar, Gastroenteritis K52.9 [place] [address] 76261- 2830 Mar, [place] [id number] [place] [address] 51273- 8873 Mar, [place] [address] 79925- 4945 Feb, Dysthymic disorder F34.1 and Generalized anxiety disorder F41.[address] 97984- 2156 Jan, UTI (urinary tract infection) N39.0 ; Asthma J45.909 ; Coronary artery disease involving [place] coronary artery of [place] heart, angina presence unspecified I25.10 ; Hypertension I10 ; Hypothyroid E03.9 ; Vitamin D deficiency E55.9 ; Insomnia G47.00 ; Palpitations R00.2 ; Depressed F32.9 ; Restless leg G25.81 and Anxiety F41.9 [place] [address] 72224- 9911 Jan, Dysthymic disorder F34.1 and Generalized anxiety disorder F41.[address] 60745- 1903 Jan, [place] [address] 55647- 9856 Dec, [place] [address] 94410- 6323 Dec, Alkalosis 276.3 ; Chronic kidney disease, Stage IV (severe) 585.4 ; Hyperpotassemia 276.7 ; Secondary hyperparathyroidism, renal 588.81 ; Proteinuria 791.0 ; Unspecified vitamin D deficiency 268.9 ; Anemia in chronic kidney disease 285.21 ; Other and unspecified hyperlipidemia 272.4 ; Hypertension, essential, benign 401.1 and Chronic kidney disease (CKD), stage III (moderate) 585.3 [place] [address] 31846- 1594 Dec, [place] [id number] [place] [address] 83685- 9772 Dec, Depressive disorder, not elsewhere classified 311 and Generalized anxiety disorder 300.02 [place] [id number] [place] [address] 36550- 6928 Dec, [place] [id number] [place] [address] 27813- 8875 Dec, [place] [address] 03796- 6982 Nov, Depressive disorder, not elsewhere classified 311 and Generalized anxiety disorder 300.02 [place] [address] 05868- 3409 Nov, Arthritis of both knees 716.96 [place] [id number] [place] [address] 74320- 6018 Nov, PAF (paroxysmal atrial fibrillation) 427.31 ; CAD (coronary artery disease) 414.00 ; Chest pain 786.50 and Chronic kidney disease (CKD) stage G4/A1, severely decreased glomerular filtration rate (GFR) between 15-29 mL/min/1.73 square meter and albuminuria creatinine ratio less than 30 mg/g 585.4 [place] [id number] [place] [address] 85474- 4063 Oct, Coronary atherosclerosis of unspecified type of vessel, [place] or graft 414.00 ; Chronic kidney disease, Stage IV (severe) 585.4 ; Hypertension 401.9 and Edema 782.3 [place] [id number] [place] [address] 34077- 6606 Oct, Depressive disorder, not elsewhere classified 311 and Generalized anxiety disorder 300.02 [place] [id number] [place] [address] 81805- 3496 Oct, Depressive disorder, not elsewhere classified 311 and Generalized anxiety disorder 300.02 [place] [id number] [place] [address] 36510- 8173 Oct, [place] [id number] [place] [address] 79781- 8733 Oct, [place] [id number] [place] [address] 39103- 8216 Sep, [place] [id number] [place] [address] 24761- 1860 Sep, Chronic kidney disease, Stage IV (severe) 585.4 [place] [id number] [place] [address] 96912- 9733 Sep, [place] [id number] [place] [address] 87351- 6669 Sep, Coronary atherosclerosis of unspecified type of vessel, [place] or graft 414.00 ; Hypertension 401.9 ; Edema 782.3 and Hypothyroidism 244.9 [facility] [id number] [place] [address] 62395- 4242 Sep, Coronary atherosclerosis of unspecified type of vessel, [place] or graft 414.00 ; Hypertension 401.9 ; Fibromyalgia 729.1 ; Edema 782.3 ; Hypothyroidism 244.9 and Anemia 285.9 [facility] [id number] [place] [address] 20848- 9893 Sep, Anxiety disorder, unspecified 300.00 and Depressive disorder , not elsewhere classified 311 [facility] [id number] [place] [address] 82796- 3851 Sep, [facility] [address] 20410- 6960 August, Generalized anxiety disorder 300.02 [facility] [id number] [place] [address] 58942- 5501 August, Closed fracture of lateral malleolus 824.2 [facility] [id number] [place] [address] 89212- 7569 Jul, [facility] [id number] [place] [address] 22957- 6294 Jul, [facility] [id number] [place] [address] 66399- 9279 Jun, [facility] [id number] [place] [address] 74666- 1578 Jun, [facility] [id number] [place] [address] 61633- 1087 Jun, [facility] [id number] [place] [address] 50083- 4546 Jun, [facility] [id number] [place] [address] 04265- 4183 Jun, [facility] [id number] [place] [address] 76750- 4698 Jun, [facility] [place] [facility] [address] [id number] [place] [address]- 7506 19 May, 2014 [facility] [place] [facility] [address] [id number] [place] [address]- 8086 19 May, 2014 [facility] [place] [facility] [address] [id number] [place] [address]- 0025 18 May, 2014 [facility] [place] [facility] [address] [id number] [place] [address]- 2181 18 May, 2014 [facility] [place] [facility] [address] [id number] [place] [address]- 6325 16 May, 2014 [facility] [place] [facility] [address] [id number] [place] [address]- 3786 16 May, 2014 [facility] [place] [facility] [address] [id number] [place] [address]- 7885 13 May, 2014 [facility] [place] [facility] [address] [id number] [place] [address]- 9063 13 May, 2014 [facility] [place] [facility] [address] [id number] [place] [address]- 7872 10 May, 2014 [facility] [place] [facility] [address] [facility] [id number] [place] [address]- 0806 10 May, 2014 [facility] [place] [facility] [address] [id number] [place] [address]- 5376 Apr, [facility] [place] [facility] [address] [id number] [place] [address]- 2386 Apr, [facility] [place] [facility] [address] [id number] [place] [address]- 9283 Mar, [facility] [place] [facility] [address] [id number] [place] [address]- 1219 Mar, [facility] [place] [facility] [address] [id number] [place] [address]- 9065 Mar, [facility] [place] [facility] [address] [id number] [place] [address]- 8052 15 Mar, 2014 [facility] [place] [facility] [address] [id number] [place] [address]- 5225 15 Mar, 2014 [facility] [place] [facility] [address] [id number] [place] [address]- 6886 15 Mar, 2014 [facility] [place] [facility] [address] [id number] [place] [address]- 2159 15 Mar, 2014 [facility] [place] [facility] [address] [id number] [place] [address]- 8220 Feb, [facility] [place] [facility] [address] [id number] [place] [address]- 3795 Feb, [facility] [place] [facility] [address] [id number] [place] [address]- 3743 Feb, [facility] [place] [facility] [address] [id number] [place] [address]- 0491 Jan, [facility] [place] [facility] [address] [id number] [place] [address]- 9737 Jan, [facility] [place] [facility] [address] [id number] [place] [address]- 1332 Jan, [facility] [place] [facility] [address] [id number] [place] [address]- 8989 Jan, [facility] [place] [facility] [address] [id number] [place] [address]- 7262 Jan, [facility] [place] [facility] [address] [id number] [place] [address]- 1023 Jan, [facility] [place] [facility] [address] [id number] [place] [address]- 4407 Jan, [facility] [place] [facility] [address] [id number] [place] [address]- 9022 Jan, [facility] [place] [facility] [address] [id number], [place] [address]- 3481 Jan, [facility] [place] [facility] [address] [id number] [place] [address]- 6849 Jan, [facility] [place] [facility] [address] [id number] [place] [address]- 6701 Nov, [facility] [place] [facility] [address] [id number] [place] [address]- 9144 Nov, [facility] [place] [facility] [address] [id number] [place] [address]- 5919 Nov, [facility] [place] [facility] [address] [id number] [place] [address]- 3237 Oct, [facility] [place] [facility] [address] [id number] [place] [address]- 6539 Oct, [facility] [place] [facility] [address] [id number] [place] [address]- 2790 Oct, [facility] [place] [facility] [address] [id number] [place] [address]- 3920 Oct, [facility] [place] [facility] [address] [id number] [place] [address]- 3469 Oct, [facility] [place] [facility] [address] [id number] [place] [address]- 3808 Oct, [facility] [place] [facility] [address] [id number] [place] [address]- 6025 Oct, [facility] [place] [facility] [address] [id number] [place] [address]- 2360 Oct, [facility] [place] [facility] [address] [id number] [place] [address]- 8253 Oct, [facility] [place] [facility] [address] [id number] [place] [address]- 6566 Sep, [facility] [place] [facility] [address] [id number] [place] [address]- 0397 Sep, [facility] [place] [facility] [address] [id number] [place] [address]- 1970 Sep, [facility] [place] [facility] [address] [id number] [place] [address]- 0477 Sep, [facility] [place] [facility] [address] [id number] [place] [address]- 9962 Sep, [facility] [place] [facility] [address] [id number] [place] [address]- 9663 Sep, [facility] [place] [facility] [address] [id number] [place] [address]- 2476 Sep, [facility] [place] [facility] [address] [id number] [place] [address]- 0041 Sep, [facility] [place] [facility] [address] [id number] [place] [address]- 5163 Sep, [facility] [place] [facility] [address] [id number] [place] [address]- 8774 August, [facility] [place] [facility] [address] [id number] [place] [address]- 4397 August, [facility] [place] [facility] [address] [id number] [place] [address]- 9657 August, [facility] [place] [facility] [address] [id number] [place] [address]- 7474 August, [facility] [place] [facility] [address] [id number] [place] [address]- 3234 August, [facility] [place] [facility] [address] [id number] [place] [address]- 2228 August, [facility] [place] [facility] [address] [id number] [place] [address]- 8812 Jul, [facility] [place] [facility] [address] [id number] [place] [address]- 0477 Jul, [facility] [place] [facility] [address] [id number] [place] [address]- 1577 Jul, [facility] [place] [facility] [address] [id number] [place] [address]- 1057 08 Jul, 2013 [facility] [place] [facility] [address] [id number] [place] [address]- 3878 Jul, [facility] [place] [facility] [address] [id number] [place] [address]- 2046 Jul, [facility] [place] [facility] [address] [id number] [place] [address]- 0825 Jun, [facility] [place] [facility] [address] [id number] [place] [address]- 5980 Jun, [facility] [place] [facility] [address] [id number] [place] [address]- 9510 May, [facility] [place] [facility] [address] [id number] [place] [address]- 6756 May, [facility] [place] [facility] [address] [id number] [place] [address]- 7930 May, [facility] [place] [facility] [address] [id number] [place] [address]- 4095 May, [facility] [place] [facility] [address] [id number] [place] [address]- 4591 Apr, [facility] [place] [facility] [address] [facility] [id number] [place] [address]- 9162 Apr, [facility] [place] [facility] [address] [id number] [place] [address]- 6825 Mar, [facility] [place] [facility] [address] [id number] [place] [address]- 5817 18 Mar, 2013 [facility] [place] [facility] [address] [id number] [place] [address]- 3406 17 Mar, 2013 [facility] [place] [facility] [address] [id number] [place] [address]- 9186 17 Mar, 2013 [facility] [place] [facility] [address] [id number] [place] [address]- 3831 Mar, [facility] [place] [facility] [address] [id number] [place] [address]- 5815 Mar, [facility] [place] [facility] [address] [id number] [place] [address]- 2701 Feb, [facility] [place] [facility] [address] [id number] [place] [address]- 8444 Feb, [facility] [place] [facility] [address] [id number] [place] [address]- 4427 Feb, [facility] [place] [facility] [address] [id number] [place] [address]- 9328 Feb, [facility] [place] [facility] [address] [id number] [place] [address]- 4554 Feb, [facility] [place] [facility] [address] [id number] [place] [address]- 0985 Feb, [facility] [place] [facility] [address] [id number], [place] [address]- 3914 Jan, [facility] [place] [facility] [address] [id number] [place] [address]- 7175 Jan, [facility] [place] [facility] [address] [id number], [place] [address]- 7280 Jan, [facility] [place] [facility] [address] [id number], [place] [address]- 3412 Jan, [facility] [place] [facility] [address] [id number], [place] [address]- 1478 08 Jan, 2013 [facility] [place] [facility] [address] [id number], [place] [address]- 5642 Jan, [facility] [place] [facility] [address] [id number], [place] [address]- 2531 12 Dec, 2012 [facility] [place] [facility] [address] [id number], [place] [address]- 1245 09 Dec, 2012 [facility] [place] [facility] [address] [id number] [place] [address]- 7350 Nov, [facility] [address] [id number] [place] [address]- 4407 Nov, [facility] [place] [facility] [address] [id number] [place] [address]- 1035 Oct, [facility] [address] [id number] [place] [address]- 5451 Oct, [facility] [place] [facility] [address] [id number] [place] [address]- 3692 Oct, [facility] [address] [id number] [place] [address]- 3506 Oct, [facility] [place] [facility] [address] [id number] [place] [address]- 1413 Oct, [facility] [address] [id number] [place] [address]- 1755 Oct, [facility] [address] [id number] [place] [address]- 7123 Sep, [facility] [place] [facility] [address] [id number] [place] [address]- 0566 Sep, [facility] [address] [id number] [place] [address]- 1055 Sep, [facility] [place] [facility] [address] [id number] [place] [address]- 8198 Sep, [facility] [place] [facility] [address] [id number] [place] [address]- 6861 August, [facility] [place] [facility] [address] [id number] [place] [address]- 2417 August, [facility] [place] [facility] [address] [id number] [place] [address]- 3265 August, [facility] [place] [facility] [address] [id number] [place] [address]- 2998 August, [facility] [place] [facility] [address] [id number] [place] [address]- 6303 August, [facility] [address] [id number] [place] [address]- 8794 Jul, [facility] [address] [id number] [place] [address]- 4810 Jul, [facility] [address] [id number] [place] [address]- 8438 Jul, [facility] [address] [id number] [place] [address]- 9144 Jul, [facility] [address] [id number] [place] [address]- 1578 Jul, [facility] [address] [id number] [place] [address]- 8640 Jul, [facility] [address] [id number] [place] [address]- 9157 Jul, [facility] [address] [id number] [place] [address]- 9023 Jul, [facility] [address] [id number] [place] [address]- 5585 Jul, [facility] [address] [id number] [place] [address]- 0244 Jul, [facility] [address] [id number] [id number] Jun, [facility] [address] [id number] [place] [address]- 0586 Jun, [facility] [address] [id number] [place] [address]- 3826 Jun, [facility] [address] [id number] [place] [address]- 2546 Jun, [facility] [address] [id number] [place] [address]- 409 Jun, [facility] [address] [id number] [place] [address]- 8749 May, [facility] [place] [facility] [address] [id number] [place] [address]- 3336 May, [facility] [place] [facility] [address] [id number] [place] [address]- 8146 May, [facility] [place] [facility] [address] [id number] [place] [address]- 5043 Apr, [facility] [address] [id number] [place] [address]- 7928 Apr, [facility] [address] [id number] [place] [address]- 3480 Apr, [facility] [place] [facility] [address] [id number] [place] [address]- 3210 Apr, [facility] [place] [facility] [address] [id number] [place] [address]- 9348 Apr, [facility] [address] [id number] [place] [address]- 3026 Apr, [facility] [place] [facility] [address] [id number] [place] [address]- 8773 Mar, [facility] [place] [facility] [address] [id number] [place] [address]- 3181 Mar, [facility] [place] [facility] [address] [id number], [place] [address]- 0681 Mar, [facility] [place] [facility] [address] [id number] [place] [address]- 5036 Mar, [facility] [place] [facility] [address] [id number] [place] [address]- 1766 Feb, [facility] [place] [facility] [address] [id number] [place] [address]- 6356 Feb, [facility] [place] [facility] [address] [id number] [place] [address]- 2389 Feb, [facility] [place] [facility] [address] [id number] [place] [address]- 2352 Feb, [facility] [place] [facility] [address] [id number] [place] [address]- 0428 Feb, [facility] [place] [facility] [address] [id number] [place] [address]- 8241 Feb, [facility] [place] [facility] [address] [id number] [place] [address]- 1479 Feb, [facility] [place] [facility] [address] [id number] [place] [address]- 3608 Feb, [facility] [place] [facility] [address] [id number] [place] [address]- 4442 Feb, [facility] [place] [facility] [address] [id number] [place] [address]- 4656 Feb, [facility] [place] [facility] [address] [id number] [place] [address]- 1008 Feb, [facility] [place] [facility] [address] [id number] [place] [address]- 9999 Feb, [facility] [place] [facility] [address] [facility] [id number] [place] [address] Feb, [facility] [place] [facility] [address] [id number] [place] [address] Feb, [facility] [place] [facility] [address] [id number] [place] [address] Feb, [facility] [place] [facility] [address] [id number] [place] [address] Feb, [facility] [place] [facility] [address] [facility] [id number] [place] [address] Jan, [facility] [place] [facility] [address] [id number] [place] [address] Jan, [facility] [place] [facility] [address] [id number] [place] [address] 31 Jan, 2011 [facility] [place] [facility] [address] [id number] [place] [address] 31 Jan, 2012 [facility] [place] [facility] [address] [id number] [place] [address] 30 Jan, 2012 [facility] [place] [facility] [address] [id number] [place] [address] Jan, [facility] [place] [facility] [address] [id number] [place] [address] Jan, [facility] [place] [facility] [address] [id number] [place] [address] Jan, [facility] [place] [facility] [address] [id number] [place] [address]- [address] 16 Jan, 2012 [facility] [place] [facility] [address] [id number] [place] [address]- [address] Jan, [facility] [place] [facility] [address] [id number] [place] [address]- [address] 15 Jan, 2012 [facility] [place] [facility] [address] [id number] [place] [address]- [address] Jan, [facility] [place] [facility] [address] [id number] [place] [address]- [address]180 26 Dec, 2011 [facility] [place] [facility] [address] [id number], [place] [address] 26 Sep, 2011 [facility] [place] [facility] [address] [id number] [place] [address] 9217 24 Sep, 2011 [facility] [place] [facility] [address] [id number] [place] [address]- [address]658 23 Sep, 2011 [facility] [place] [facility] [address] [id number] [place] [address]- [address]256 22 Sep, 2011 [facility] [place] [facility] [address] [id number], [place] [address] 21 Dec, 2011 [facility] [place] [facility] [address] [id number] [place] [address] 2546 20 Dec, 2011 [facility] [place] [facility] [address] [id number] [place] [address] 2546 20 Dec, 2011 [facility] [place] [facility] [address] [id number] [place] [address] 2546 07 Dec, 2011 [facility] [place] [facility] [address] [id number] [place] [address] 2546 06 Sep, 2011 [facility] [place] [facility] [address] [id number] [place] [address]- [address] 06 Sep, 2011 [facility] [place] [facility] [address] [id number] [place] [address]- [address]44 05 Dec, 2011 [facility] [place] [facility] [address] [id number] [place] [address]- [address] 23 Nov, 2011 [facility] [place] [facility] [address] [id number] [place] [address]- [address]113 17 Nov, 2011 [facility] [place] [facility] [address] [id number] [place] [address]- [address] 13 Nov, 2011 [facility] [place] [facility] [address] [id number] [place] [address] Nov, [facility] [place] [facility] [address] [id number] [place] [address]- 133[address] Nov, [facility] [place] [facility] [address] [id number] [place] [address]- 1202 Nov, [facility] [place] [facility] [address] [id number] [place] [address] 1407 Nov, [facility] [place] [facility] [address] [id number] [place] [address]- [address]78 Nov, [facility] [place] [facility] [address] [id number] [place] [address] Oct, [facility] [place] [facility] [address] [id number] [place] [address] Oct, [facility] [address] [id number] [place] [address] Oct, [facility] [place] [facility] [address] [id number] [place] [address] Oct, [facility] [address] [id number] [place] [address] 2736 Oct, [facility] [address] [id number] [place] [address]89 Oct, [facility] [address] [id number] [place] [address] 8298 Oct, [facility] [address] [id number] [place] [address]- 0921 Sep, [facility] [address] [id number] [place] [address]- [address] Sep, [facility] [address] [id number] [place] [address]681 August, [facility] [address] [id number] [place] [address] August, [facility] [address] [id number] [place] [address] 8698 August, [facility] [address] [id number] [place] [address] 4066 August, [facility] [address] [id number] [place] [address] Jul, [facility] [place] [facility] [address] [address] [id number] [place] [address] Jul, [facility] [place] [facility] [address] [id number] [place] [address] Jul, [facility] [place] [facility] [address] [id number] [place] [address] Jul, [facility] [address] [id number] [place] [address] Jul, [facility] [place] [facility] [address] [id number] [place] [address] Jul, [facility] [place] [facility] [address] [id number] [place] [address] Jul, [facility] [place] [facility] [address] [id number] [place] [address] Jul, [facility] [place] [facility] [address] [id number] [place] [address] Jul, [facility] [place] [facility] [address] [id number] [place] [address] Jun, [facility] [place] [facility] [address] [id number] [place] [address] Jun, [facility] [place] [facility] [address] [id number] [place] [address] 15 Jun, 2011 [facility] [place] [facility] [address] [id number] [place] [address] 14 Jun, 2011 [facility] [place] [facility] [address] [id number] [place] [address] Jun, [facility] [place] [facility] [address] [id number] [place] [address] Jun, [facility] [place] [facility] [address] [id number] [place] [address] Jun, [facility] [place] [facility] [address] [id number] [place] [address] May, [facility] [place] [facility] [address] [id number] [place] [address] 24 May, 2011 [facility] [place] [facility] [address] [id number] [place] [address] 16 May, 2011 [facility] [place] [facility] [address] [id number] [place] [address] 16 May, 2011 [facility] [address] [id number] [place] [address] 03 May, 2011 [facility] [address] [id number] [place] [address] 27 Apr, 2011 [facility] [address] [id number] [place] [address] Apr, [facility] [address] [id number] [place] [address] 13 Apr, 2011 [facility] [address] [id number] [place] [address] Apr, [facility] [address] [id number] [place] [address] Apr, [facility] [address] [id number] [place] [address] 30 Mar, 2011 [facility] [address] [id number] [place] [address] Mar, [facility] [address] [id number] [place] [address] Mar, [facility] [address] [id number] [place] [address] Mar, [facility] [address] [id number] [place] [address] 2546 Mar, [facility] [address] [id number] [place] [address] Mar, [facility] [address] [id number] [place] [address] 06 Mar, 2011 [facility] [address] [id number] [place] [address] Feb, [facility] [address] [id number] [place] [address] 10 Feb, 2011 [facility] [place] [facility] [address] [id number] [place] [address] 08 Feb, 2011 [facility] [place] [facility] [address] [id number] [place] [address] Feb, [facility] [place] [facility] [address] [id number] [place] [address] Jan, [facility] [place] [facility] [address] [id number] [place] [address] Jan, [facility] [place] [facility] [address] [id number] [place] [address] Jan, [facility] [place] [facility] [address] [id number] [place] [address] Jan, [facility] [place] [facility] [address] [id number] [place] [address] Nov, [facility] [place] [facility] [address] [id number] [place] [address] Mar, [facility] [place] [facility] [address] [id number] [place] [address] Mar, [facility] [place] [facility] [address] [id number] [place] [address] Mar, [facility] [place] [facility] [address] [id number] [place] [address] Mar, [facility] [place] [facility] [address] [id number], [place] [address] Mar, [facility] [place] [facility] [address] [id number] [place] [address] Mar, [facility] [place] [facility] [address] [id number] [place] [address] Feb, [facility] [place] [facility] [address] [id number] [place] [address] Feb, [facility] [place] [facility] [address] [id number], [place] [address] Jan, [facility] [address] [facility] [id number] [place] [address] Jan, [facility] [address] [facility] [id number] [place] [address] Jan, IMMUNIZATIONS No Known Immunizations SOCIAL HISTORY Never Assessed REASON FOR VISIT RE:Please review your Payment/CoPay Details PLAN OF CARE VITAL SIGNS MEDICATIONS Unknown [...] 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
--- OUTSIDE RECORDS SUMMARY | 2018-05-29 09:15 | XMS REPORT ---
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 Name Role Phone ISABEL MAE Unavailable PROBLEMS Type Condition ICD9-CM Code QCF42-SF Code Onset Dates Condition Status SNOMED Code Problem Long-term use of high-risk medication Z79.899 Active 411277340 Problem Abnormal chest CT R93.8 Active 975119520 Problem Low back pain M54.5 Active 791114648 Problem Generalized anxiety disorder F41.1 Active 50695311 Problem Dysthymic disorder F34.1 Active 24304363 Problem Coronary artery disease involving [place] coronary artery of [place] heart, angina presence unspecified I25.10 Active 1046028687467 Problem Depressed F32.9 Active 55462083 Problem Fibromyalgia M79.7 Active 360122856 Problem Hypothyroid E03.9 Active 74922136 Problem Essential (primary) hypertension I10 Active 25643034 Problem Insomnia G47.00 Active 632730352 Problem Vitamin D deficiency E55.9 Active 23215528 Problem Anemia in chronic kidney disease D63.1 Active 280235971214736 Problem Chronic kidney disease, unspecified N18.9 Active 347924403 Problem Body mass index (BMI) of 40.0-44.9 in adult Z68.41 Active 874939088 Problem Stage 3 chronic kidney disease N18.3 Active 100835017 Problem Restless leg G25.81 Active 12279513 Problem Palpitations R00.2 Active 30220289 Problem Asthma J45.909 Active 351209109 Problem Primary osteoarthritis of left knee M17.12 Active 369221683 Problem Bipolar disorder, current episode manic without psychotic features F31.10 Active 239957561 Problem Mood disorder F39 Active 21771188 Problem Degenerative tear of medial meniscus of left knee M23.204 Active 956949503 Problem History of colon polyps Z86.010 Active 617552428 Problem Asthma with acute exacerbation in adult J45.901 Active 780803924 Problem Chronic kidney disease, stage 4 (severe) N18.4 Active 301307323 Problem Functional diarrhea K59.1 Active 36007692 Problem Hypokalemia E87.6 Active 88280897 Problem Mixed stress and urge urinary incontinence N39.46 Active 350131037 Problem History of anemia Z86.2 Active 019504947 Problem Other seasonal allergic rhinitis J30.2 Active 681251691 ALLERGIES No Information ENCOUNTERS Encounter Location Date Diagnosis [facility] [id number] [place] [address] 52651- 7747 August, [facility] [address] 91069- 5972 Jul, Restless leg G25.81 ; Mixed stress and urge urinary incontinence N39.46 and Fibromyalgia M79.7 [facility] [address] 13006- 6603 Jul, Chronic kidney disease, stage 4 (severe) N18.4 [facility] [id number] [place] [address] 05636- 9237 Jun, Orthostatic hypotension I95.1 ; Chronic kidney disease, stage 4 (severe) N18.4 ; Chest wall discomfort R07.89 and Body mass index (BMI) of 40.0-44.9 in adult Z68.41 [facility] [id number] [place] [address] 82742- 2583 Jun, [facility] [id number] [place] [address] 03425- 9889 Jun, Orthostatic hypotension I95.1 [facility] [id number] [place] [address] 97844- 7811 Jun, [facility] [id number] [place] [address] 46180 -0170 Jun, Orthostatic hypotension I95.1 ; Dysuria R30.0 and Acute cystitis without hematuria N30.00 [facility] [address] 99184- 9783 Jun, [facility] [address] [address] 12[address] Jun, Chronic kidney disease, stage 4 (severe) N18.4 [facility] [address] [address] 8066 Jun, Fibromyalgia M79.7 [facility] [id number] [place] [address] 69759- 1236 Jun, [facility] [id number] [place] [address] 11877- 8685 Jun, [facility] [id number] [place] [address] 85364- [address] May, [address] R93.8 and Stage 3 chronic kidney disease N18.3 [facility] [id number] [place] [address] 10469- 3927 May, Chronic kidney disease, stage 4 (severe) N18.4 [facility] [id number] [place] [address] 87632- 5562 May, Chronic kidney disease, stage 4 (severe) N18.4 [facility] [id number] [place] [address] 28710- [address] May, [address] R93.8 [facility] [id number] [place] [address] 62928 2546 May, [facility] [address] [address] 4872 May, [facility] [id number] [place] [address] 42866- 4416 May, Generalized anxiety disorder F41.1 and Major depressive disorder, recurrent episode with anxious distress F33.9 [facility] [address] [address] 6716 May, Mood disorder F39 [facility] [address] [address]- 7130 Apr, [facility] [id number] [place] [address] 37744- 7172 Apr, Infected skin lesion L08.9 and Muscle strain of right shoulder region, initial encounter S46.911A [facility] [id number] [place] [address] 98023- 1189 Apr, Generalized anxiety disorder F41.1 and Major depressive disorder, recurrent episode with anxious distress F33.9 [facility] [id number] [place] [address] 30340- 7932 Apr, [facility] [id number] [place] [address] 00285- 9345 Apr, Recent urinary tract infection Z87.440 and Hypothyroid E03.9 [facility] [id number] [place] [address] 77750- 9817 Apr, Generalized anxiety disorder F41.1 and Major depressive disorder, recurrent episode with anxious distress F33.9 [facility] [id number] [place] [address] 37797- 7118 Apr, Recent urinary tract infection Z87.440 [facility] [id number] [place] [address] 63021- 8016 Mar, [facility] [id number] [place] [address] 89992 -9999 Mar, Dysuria R30.0 ; Acute cystitis without hematuria N30.00 and BMI 40.0-44.9, adult Z68.41 [facility] [id number] [place] [address] 55627- 3589 Mar, [facility] [id number] [place] [address] 67911- 2925 Mar, [facility] [id number] [place] [address] 18947- 2165 Mar, Generalized anxiety disorder F41.1 and Major depressive disorder, recurrent episode with anxious distress F33.9 [facility] [id number] [place] [address] 56846- 2948 Feb, Conjunctivitis, bacterial H10.9 [facility] [id number] [place] [address] 59136- 8610 Feb, [facility] [address] 53319 -5206 Feb, Conjunctivitis, bacterial H10.9 [facility] [id number] [place] [address] 33378- 0002 Feb, [facility] [id number] [place] [address] 82555 -9735 Feb, Dysuria R30.0 ; Acute cystitis N30.00 and BMI 40.0-44.9, adult Z68.41 [facility] [id number] [place] [address] 40510- 0259 Feb, [facility] [id number] [place] [address] 50305- 4575 Feb, Generalized anxiety disorder F41.1 and Major depressive disorder, recurrent episode with anxious distress F33.9 [facility] [id number] [place] [address] 57439- 7338 Feb, Mood disorder F39 and BMI 40.0-44.9, adult Z68.41 [facility] [id number] [place] [address] 00184- 3533 Jan, [facility] [id number] [place] [address] 83438- 4863 Jan, [facility] [id number] [place] [address] 26655- 9118 Jan, Hypothyroid E03.9 [facility] [id number] [place] [address] 56304- 5217 Jan, [facility] [id number] [place] [address] 30786- 9149 Jan, Chronic kidney disease, unspecified N18.9 ; Hypokalemia E87.6 ; Essential (primary) hypertension I10 ; Fibromyalgia M79.7 ; Coronary artery disease involving [place] coronary artery of [place] heart, angina presence unspecified I25.10 ; Hypothyroid E03.9 and Encounter for immunization Z23 [facility] [id number] [place] [address] 15220- 0564 Jan, Hypothyroid E03.9 [facility] [address] 48272- 3188 Jan, [facility] [id number] [place] [address] 11438- 4836 Dec, Vitamin D deficiency E55.9 [facility] [id number] [place] [address] 79827- 2506 Dec, Primary osteoarthritis of left knee M17.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 [facility] [id number] [place] [address] 18591- 1917 19 Dec, 2016 Fibromyalgia M79.7 [facility] [id number] [place] [address] 17234- 9272 18 Dec, 2016 Mood disorder F39 [facility] [id number] [place] [address] 72712- 2473 13 Dec, 2016 [facility] [id number] [place] [address] 87153- 4581 13 Dec, 2016 Generalized anxiety disorder F41.1 and Major depressive disorder, recurrent episode with anxious distress F33.9 [facility] [id number] [place] [address] 58918- 1260 11 Dec, 2016 [facility] [id number] [place] [address] 90686- 1718 08 Dec, 2016 Streptococcal meningitis G00.2 [facility] [address] [address]- 0854 07 Dec, 2016 Streptococcal meningitis G00.2 [facility] [id number] [place] [address] 64055- 7700 07 Dec, 2016 [facility] [id number] [place] [address] 72681- 2987 Dec, Streptococcal meningitis G00.2 [facility] [id number] [place] [address] 32501- 3567 Dec, [facility] [id number] [place] [address] 52103- 0137 Dec, Major depressive disorder, recurrent episode with anxious distress F33.9 [facility] [id number] [place] [address] 32125- 3322 Nov, Fever, unspecified fever cause R50.9 [facility] [id number] [place] [address] 67834- 2458 Nov, [facility] [id number] [place] [address] 22778- 7642 Nov, Hypothyroid E03.9 [facility] [id number] [place] [address] 37483- 3480 Nov, Generalized anxiety disorder F41.1 and Major depressive disorder, recurrent episode with anxious distress F33.9 [facility] [address], [place] [address]- 7512 Nov, [facility] [address] [place] [id number] Oct, Dental examination Z01.20 [facility] [id number] [place] [address] 01008- 3537 Oct, Generalized anxiety disorder F41.1 and Major depressive disorder, recurrent episode with anxious distress F33.9 [facility] [id number] [place] [address] 54353- 5668 Oct, Chronic kidney disease, stage 4 (severe) N18.4 [facility] [address], [place] [address]- 8381 Oct, [facility] [id number] [place] [address] 20677- 9193 Oct, Fibromyalgia M79.7 [facility] [id number] [place] [address] 81215- 4877 Oct, [facility] [id number] [place] [address] 86554- 4659 Oct, Generalized anxiety disorder F41.1 ; Major depressive disorder, recurrent episode with anxious distress F33.9 and Bipolar disorder, current episode manic without psychotic features F31.10 [facility] [id number] [place] [address] 20048- 5239 Sep, [facility] [id number] [place] [address] 97491- 7161 Sep, [facility] [id number] [place] [address] 25899- 5144 Sep, Vitamin D deficiency E55.9 [facility] [id number] [place] [address] 75078- 8376 Sep, Vitamin D deficiency E55.9 [facility] [id number] [place] [address] 18509- 3275 Sep, [facility] [id number] [place] [address] 83061- 8123 Sep, Chronic kidney disease, stage 4 (severe) N18.4 ; Hypothyroid E03.9 ; Restless leg G25.81 ; Fibromyalgia M79.7 ; Essential ( primary) hypertension I10 ; Vitamin D deficiency E55.9 ; Dyspepsia R10.13 ; Anemia in chronic kidney disease D63.1 ; Chronic kidney disease, unspecified N18.9 ; Coronary artery disease involving [place] coronary artery of [place] heart , angina presence unspecified I25.10 ; Screening breast examination Z12.39 and Low back pain M54.5 [facility] [address], [place] [address]- 3892 August, Generalized anxiety disorder F41.1 and Major depressive disorder, recurrent episode with anxious distress F33.9 [facility] [id number] [place] [address] 03781- 1505 August, Generalized anxiety disorder F41.1 and Major depressive disorder, recurrent episode with anxious distress F33.9 [facility] [id number] [place] [address] 79739- 4133 August, Fibromyalgia M79.7 [facility] [id number] [place] [address] 89346- 8061 Jul, Generalized anxiety disorder F41.1 and Major depressive disorder, recurrent episode with anxious distress F33.9 [facility] [id number] [place] [address] 99216- 7949 Jul, Fibromyalgia M79.7 [facility] [id number] [place] [address] 69104- 3150 Jul, Generalized anxiety disorder F41.1 [facility] [id number] [place] [address] 33641- 0564 May, [facility] [id number] [place] [address] 27940- 3597 May, Hypothyroid E03.9 [facility] [id number] [place] [address] 14394- 0947 May, Chronic kidney disease, stage 4 (severe) N18.4 ; Hypothyroid E03.9 ; Restless leg G25.81 ; Fibromyalgia M79.7 ; Essential ( primary) hypertension I10 ; Vitamin D deficiency E55.9 ; Dyspepsia R10.13 ; Acute non-recurrent maxillary sinusitis J01.00 ; Anemia in chronic kidney disease D63.1 ; Chronic kidney disease, unspecified N18.9 and Coronary artery disease involving [place] coronary artery of [place] heart, angina presence unspecified I25.10 [facility] [id number] [place] [address] 71630- 7191 May, Vitamin D deficiency, unspecified E55.9 [facility] [id number] [place] [address] 63587- 1166 May, Generalized anxiety disorder F41.1 and Major depressive disorder, recurrent episode with anxious distress F33.9 [facility] [id number] [place] [address] 14339- 2192 Apr, Pain in right knee M25.561 and Pain in left knee M25.562 [facility] [id number] [place] [address] 52851- 5547 Apr, [facility] [id number] [place] [address] 53143- 6958 Apr, [facility] [id number] [place] [address] 24747- 3812 Apr, [facility] [id number] [place] [address] 10141- 2975 Mar, Generalized anxiety disorder F41.1 and Major depressive disorder, recurrent episode with anxious distress F33.9 [facility] [id number] [place] [address] 89144- 7172 Mar, Generalized anxiety disorder F41.1 and Major depressive disorder, recurrent episode with anxious distress F33.9 [facility] [id number] [place] [address] 58459- 7326 Mar, [facility] [id number] [place] [address] 68114- 2546 Mar, [facility] [id number] [place] [address] 29416- 4066 Mar, [facility] [id number] [place] [address] 75211- 2541 Mar, Asthma J45.909 and Fibromyalgia M79.7 [facility] [id number] [place] [address] 31015- 5847 Mar, Chronic kidney disease, stage 4 (severe) N18.4 ; Vitamin D deficiency E55.9 and Essential (primary) hypertension I10 [facility] [id number] [place] [address] 93003- 4366 Feb, [facility] [id number] [place] [address] 95489- 9796 Feb, Dysuria R30.0 ; Mixed stress and urge urinary incontinence N39.46 ; Fibromyalgia M79.7 and Chronic kidney disease, stage IV (severe) N18.4 [facility] [id number] [place] [address] 66350- 1559 Feb, Chronic kidney disease, stage 4 (severe) N18.4 [facility] [id number] [place] [address] 30300- 5721 Feb, Chronic kidney disease, stage 4 (severe) N18.4 [facility] [id number] [place] [address] 54954- 6588 Feb, [facility] [id number] [place] [address] 97956- 8118 Feb, Vitamin D deficiency, unspecified E55.9 [facility] [id number] [place] [address] 19864- 7096 Jan, [facility] [id number] [place] [address] 15135- 0353 Jan, [facility] [id number] [place] [address] 77115 2542 Dec, [facility] [id number] [place] [address] 35188- 9539 Dec, Chronic kidney disease, stage 4 (severe) N18.4 [facility] [id number] [place] [address] 74034- 5792 Dec, Dysthymic disorder F34.1 and Generalized anxiety disorder F41.1 [facility] [id number] [place] [address] 53669- 6092 Dec, [facility] [id number] [place] [address] 13886- 4065 Dec, [facility] [id number] [place] [address] 62571- 7576 Dec, Dysthymic disorder F34.1 and Generalized anxiety disorder F41.1 [facility] [address] 54145- 1019 Dec, Dysuria R30.0 ; Chronic kidney disease, stage 4 (severe) N18.4 ; Hypertension I10 ; Dyspepsia R10.13 ; Yeast dermatitis B37.2 ; Palpitations R00.2 ; Hypothyroid E03.9 ; Functional diarrhea K59.1 and Other seasonal allergic rhinitis J30.2 [facility] [address] 69462 -1884 Dec, [facility] [address] 02091 -7502 Nov, Dysuria R30.0 and Stress incontinence N39.3 [facility] [id number] [place] [address] 94696- 1505 Nov, [facility] [id number] [place] [address] 08808- 2072 Nov, [facility] [id number] [place] [address] 57443- 0838 Nov, Osteoarthritis of knees, bilateral M17.0 [facility] [id number] [place] [address] 96159- 4426 Nov, Dysthymic disorder F34.1 and Generalized anxiety disorder F41.1 [facility] [id number] [place] [address] 60649- 4804 Nov, [facility] [id number] [place] [address] 09395- 3453 Nov, [facility] [id number] [place] [address] 78507- 4332 Nov, Urgency of urination R39.15 [facility] [id number] [place] [address] 33011- 2082 Nov, [facility] [id number] [place] [address] 44448- 6034 Nov, Chronic kidney disease, stage 4 (severe) N18.4 [facility] [id number] [place] [address] 53639- 7373 Oct, Hypertension I10 ; Coronary artery disease involving [place] coronary artery of [place] heart, angina presence unspecified I25.10 ; Palpitations R00.2 ; Hypothyroid E03.9 ; Right foot pain M79.671 ; Functional diarrhea K59.1 and Other seasonal allergic rhinitis J30.2 [facility] [id number] [place] [address] 36276- 5232 Oct, Dysthymic disorder F34.1 and Generalized anxiety disorder F41.1 [facility] [id number] [place] [address] 64694- 8073 Sep, [facility] [id number] [place] [address] 32263- 9233 Sep, [facility] [id number] [place] [address] 94752- 5763 Sep, [facility] [id number] [place] [address] 87507- 4620 Sep, [facility] [id number] [place] [address] 99775- 2745 Sep, [facility] [id number] [place] [address] 39971- 2901 Sep, Dysthymic disorder F34.1 and Generalized anxiety disorder F41.1 [facility] [id number] [place] [address] 38564- 4553 Sep, Asthma with acute exacerbation in adult J45.901 ; Dysuria R30.0 ; Chronic kidney disease, stage 4 (severe) N18.4 and History of anemia Z86.2 [facility] [id number] [place] [address] 52005- 0142 2015 Generalized anxiety disorder F41.1 and Dysthymic disorder F34.1 [facility] [address] 52465- 6681 August, Screening breast examination Z12.39 and Acute recurrent maxillary sinusitis J01.01 [facility] [address] 31216- 9223 August, Osteoarthritis of knees, bilateral M17.0 [facility] [address] 35160- 2817 August, Chronic kidney disease, stage 4 (severe) N18.4 ; Acute non- recurrent maxillary sinusitis J01.00 ; Urinary problem R39.89 ; Bowel habit changes R19.4 ; Functional diarrhea K59.1 and History of colon polyps Z86.010 [facility] [id number] [place] [address] 04939- 8634 Jul, Dysthymic disorder F34.1 and Generalized anxiety disorder F41.1 [facility] [id number] [place] [address] 99950- 5115 Jul, [facility] [id number] [place] [address] 10159- 2466 Jul, Dysthymic disorder F34.1 ; Generalized anxiety disorder F41.1 and [facility] use of drug Z79.899 [facility] [address] [place] [id number] [place] [address] 75804- 9768 Jul, [place] [address] [place] [id number] [place] [address] 06216- 6005 Jun, [place] [address] 04919- 9696 Jun, [place] [address] [place] [id number] [place] [address] 99262- 9732 May, [place] [address] 35474- 8817 May, Dysthymic disorder F34.1 and Generalized anxiety disorder F41.1 [place] [address] 12149- 8766 Apr, Kidney disease N28.9 [place] [address] 92218- 3488 Apr, Dysthymic disorder F34.1 and Generalized anxiety disorder F41.1 [place] [address] 05908- 5313 Apr, Chronic kidney disease, stage 4 (severe) N18.4 [place] [address] 63598- 7144 Apr, Generalized anxiety disorder F41.1 ; Major depression, recurrent F33.9 and Sleep disturbance G47.9 [place] [address] [place] [id number] [place] [address] 91251- 8232 Mar, Generalized anxiety disorder F41.1 and Dysthymic disorder F34.1 [place] [address] [place] [id number] [place] [address] 47699- 8077 Mar, Generalized anxiety disorder F41.1 ; Dysthymic disorder F34.1 and Insomnia G47.00 [place] [address] [place] [id number] [place] [address] 77946- 7955 Mar, [place] [address] [place] [id number] [place] [address] 63591- 2732 Mar, [place] [address] [place] [id number] [place] [address] 63989- 5045 Mar, Osteoarthritis of knees, bilateral M17.0 [place] [address] 71076- 9950 Mar, Hypertension I10 ; Hypothyroid E03.9 ; Dysthymic disorder F34.1 ; Chronic kidney disease, stage 4 (severe) N18.4 and Nausea & vomiting R11.2 [place] [address] 14053- 6214 Mar, Generalized anxiety disorder F41.1 ; Dysthymic disorder F34.1 and Insomnia G47.00 [place] [address] 22631- 7530 Mar, Dehydration E86.0 ; Chronic kidney disease, stage 4 (severe ) N18.4 and Nausea & vomiting R11.2 [facility] [address] [address]87 -9216 08 Mar, 2015 Gastroenteritis K52.[address] 72814- 4327 Mar, [place] [address] 84107- 7022 Mar, [address] 33551- 0081 Feb, Dysthymic disorder F34.1 and Generalized anxiety disorder F41.[address] 49219- 5628 Jan, UTI (urinary tract infection) N39.0 ; Asthma J45.909 ; Coronary artery disease involving [place] mountain coronary artery of turtle mountain heart, angina presence unspecified I25.10 ; Hypertension I10 ; Hypothyroid E03.9 ; Vitamin D deficiency E55.9 ; Insomnia G47.00 ; Palpitations R00.2 ; Depressed F32.9 ; Restless leg G25.81 and Anxiety F41.9 [place] [address] 90119- 4126 Jan, Dysthymic disorder F34.1 and Generalized anxiety disorder F41.1 [place] [address] 61913- 7514 Jan, [place] [address] [place] [id number] [place] [address] 51657- 3205 Dec, [place] [address] [place] [id number] [place] [address] 77426- 0140 Dec, Alkalosis 276.3 ; Chronic kidney disease, Stage IV (severe) 585.4 ; Hyperpotassemia 276.7 ; Secondary hyperparathyroidism, renal 588.81 ; Proteinuria 791.0 ; Unspecified vitamin D deficiency 268.9 ; Anemia in chronic kidney disease 285.21 ; Other and unspecified hyperlipidemia 272.4 ; Hypertension, essential, benign 401.1 and Chronic kidney disease (CKD), stage III (moderate) 585.3 [place] [address] [place] [id number] [place] [address] 46118- 6076 Dec, [place] [address] 95125- 4658 Dec, Depressive disorder, not elsewhere classified 311 and Generalized anxiety disorder 300.02 [place] [address] [place] [id number] [place] [address] 29407- 9300 Dec, [place] [address] [place] [id number] [place] [address] 97704- 5520 Dec, [place] [address] [place] [id number] [place] [address] 71000- 9391 Nov, Depressive disorder, not elsewhere classified 311 and Generalized anxiety disorder 300.02 [place] [address] [place] [id number] [place] [address] 69002- 2797 Nov, Arthritis of both knees 716.96 [place] [address] 45815- 6540 07 Nov, 2014 PAF (paroxysmal atrial fibrillation) 427.31 ; CAD (coronary artery disease) 414.00 ; Chest pain 786.50 and Chronic kidney disease (CKD) stage G4/A1, severely decreased glomerular filtration rate (GFR) between 15-29 mL/min/1.73 square meter and albuminuria creatinine ratio less than 30 mg/g 585.[id number] [place] [address] 54334- 2956 Oct, Coronary atherosclerosis of unspecified type of vessel, turtle mountain or graft 414.00 ; Chronic kidney disease, Stage IV (severe) 585.4 ; Hypertension 401.9 and Edema 782.3 [place] [id number] [place] [address] 90778- 6882 Oct, Depressive disorder, not elsewhere classified 311 and Generalized anxiety disorder 300.[address] 69771- 7586 Oct, Depressive disorder, not elsewhere classified 311 and Generalized anxiety disorder 300.[address] 32071- 2793 Oct, [place] [id number] [place] [address] 87515- 8422 Oct, [place] [id number] [place] [address] 17074- 8880 Sep, [address] 69544- 1492 Sep, Chronic kidney disease, Stage IV (severe) 585.4 [place] [id number] [place] [address] 40735- 9651 Sep, [place] [id number] [place] [address] 61607- 0062 Sep, Coronary atherosclerosis of unspecified type of vessel, turtle [place] or graft 414.00 ; Hypertension 401.9 ; Edema 782.3 and Hypothyroidism 244.[address] 41918- 2243 Sep, Coronary atherosclerosis of unspecified type of vessel, turtle [place] or graft 414.00 ; Hypertension 401.9 ; Fibromyalgia 729.1 ; Edema 782.3 ; Hypothyroidism 244.9 and Anemia 285.[address] 49109- 2682 Sep, Anxiety disorder, unspecified 300.00 and Depressive disorder , not elsewhere classified 311 [facility] [address] [address]- 9810 Sep, [facility] [id number] [address]- 3016 August, Generalized anxiety disorder 300.02 [facility] [address] [id number] [place] [address] 12710- 0886 August, Closed fracture of lateral malleolus 824.2 [facility] [id number] [address]- 1333 Jul, [facility] [address] [id number] [place] [address] 31724- 8544 Jul, [facility] [id number] [address]- 1736 Jun, [facility] [address] [address]- 4183 Jun, [facility] [address] [address]- 8331 Jun, [facility] [id number] [address]- 2489 Jun, [facility] [address] [address]- 1760 Jun, [facility] [id number] [address]- 0789 Jun, [facility] [id number] [address]- 8777 May, [facility] [id number] 7180 May, [facility] [id number] 6560 May, [facility] [place] [facility] [address] [place] [id number] [place] [address]- 5192 18 May, 2014 [facility] [place] [facility] [address] [id number] [place] [address]- 6046 16 May, 2014 [facility] [place] [facility] [address] [id number] [place] [address]- 2546 16 May, 2014 [facility] [place] [facility] [address] [id number] [place] [address]- 1056 13 May, 2014 [facility] [place] [facility] [address] [id number] [place] [address]- 254 13 May, 2014 [facility] [place] [facility] [address] [id number] [place] [address]- 0152 10 May, 2014 [facility] [place] [facility] [address] [id number] [place] [address]- 5146 10 May, 2014 [facility] [place] [facility] [address] [id number] [place] [address]- 3352 Apr, [facility] [place] [facility] [address] [id number] [place] [address]- 3812 Apr, [facility] [place] [facility] [address] [id number] [place] [address]- 6368 Mar, [facility] [place] [facility] [address] [id number] [place] [address]- 9433 Mar, [facility] [place] [facility] [address] [id number] [place] [address]- 2545 Mar, [facility] [place] [facility] [address] [id number] [place] [address]- 254 Mar, [facility] [place] [facility] [address] [id number] [place] [address]- 2546 15 Mar, 2014 [facility] [place] [facility] [address] [id number] [place] [address]- 1059 15 Mar, 2014 [facility] [place] [facility] [address] [id number] [place] [address]- 2010 Mar, [facility] [place] [facility] [address] [id number] [place] [address]- 6569 Feb, [facility] [place] [facility] [address] [id number] [place] 5891 Feb, [facility] [place] [facility] [address] [id number] [place] [address]- 9718 Feb, [facility] [place] [facility] [address] [id number] [place] [address]- 4552 Jan, [facility] [place] [facility] [address] [id number] [place] [address]- 7837 Jan, [facility] [place] [facility] [address] [id number] [place] [address]- 5249 Jan, [facility] [place] [facility] [address] [id number] [place] [address]- 7973 Jan, [facility] [place] [facility] [address] [id number] [place] [address]- 0615 Jan, [facility] [place] [facility] [address] [id number] [place] [address]- 1525 Jan, [facility] [place] [facility] [address] [id number] [place] [address]- 8551 Jan, [facility] [place] [facility] [address] [id number] [place] [address]- 0313 Jan, [facility] [place] [facility] [address] [id number] [place] [address]- 9796 Jan, [facility] [place] [facility] [address] [id number] [place] [address]- 5051 Jan, [facility] [place] [facility] [address] [id number] [place] [address]- 2587 Nov, [facility] [place] [facility] [address] [id number] [place] [address]- 3870 Nov, [facility] [place] [facility] [address] [id number] [place] [address]- 0055 Nov, [facility] [place] [facility] [address] [id number] [place] [address]- 8038 Oct, [facility] [place] [facility] [address] [id number] [place] [address]- 1576 Oct, [facility] [place] [facility] [address] [id number] [place] [address]- 5280 Oct, [facility] [place] [facility] [address] [id number] [place] [address]- 2420 Oct, [facility] [place] [facility] [address] [id number] [place] [address]- 4362 Oct, [facility] [place] [facility] [address] [id number] [place] [address]- 5547 Oct, [facility] [place] [facility] [address] [id number] [place] [address]- 3696 Oct, [facility] [place] [facility] [address] [id number] [place] [address]- 0209 Oct, [facility] [place] [facility] [address] [id number] [place] [address]- 6831 Oct, [facility] [place] [facility] [address] [id number] [place] [address]- 4560 Sep, [facility] [place] [facility] [address] [id number] [place] [address]- 1930 Sep, [facility] [place] [facility] [address] [id number] [place] [address]- 6961 Sep, [facility] [place] [facility] [address] [id number] [place] [address]- 9269 Sep, [facility] [place] [facility] [address] [id number] [place] [address]- 3842 Sep, [facility] [place] [facility] [address] [id number] [place] [address]- 1556 Sep, [facility] [place] [facility] [address] [id number] [place] [address]- 1028 Sep, [facility] [place] [facility] [address] [id number] [place] [address]- 1865 Sep, [facility] [place] [facility] [address] [id number] [place] [address]- 7582 Sep, [facility] [place] [facility] [address] [id number] [place] [address]- 4373 August, [facility] [place] [facility] [address] [id number] [place] [address]- 6569 August, [facility] [place] [facility] [address] [id number] [place] [address]- 0070 August, [facility] [place] [facility] [address] [id number] [place] [address]- 8905 August, [facility] [place] [facility] [address] [id number] [place] [address]- 8713 August, [facility] [place] [facility] [address] [id number] [place] [address]- 7157 August, [facility] [place] [facility] [address] [id number] [place] [address]- 0272 Jul, [facility] [place] [facility] [address] [id number] [place] [address]- 5159 Jul, [facility] [place] [facility] [address] [id number], [place] [address]- 1870 Jul, [facility] [place] [facility] [address] [id number] [place] [address]- 0014 Jul, [facility] [place] [facility] [address] [id number] [place] [address]- 2133 Jul, [facility] [place] [facility] [address] [id number] [place] [address]- 1540 Jul, [facility] [place] [facility] [address] [id number], [place] [address]- 1186 Jun, [facility] [place] [facility] [address] [id number] [place] [address]- 1868 Jun, [facility] [place] [facility] [address] [id number] [place] [address]- 8196 May, [facility] [place] [facility] [address] [id number] [place] [address]- 0926 May, [facility] [place] [facility] [address] [id number] [place] [address]- 1777 May, [facility] [place] [facility] [address] [id number] [place] [address]- 0111 May, [facility] [place] [facility] [address] [id number] [place] [address]- 5895 Apr, [facility] [place] [facility] [address] [id number] [place] [address]- 7770 Apr, [facility] [place] [facility] [address] [id number] [place] [address]- 4373 Mar, [facility] [place] [facility] [address] [id number] [place] [address]- 5569 Mar, [facility] [place] [facility] [address] [facility] [id number] [place] [address]- 0346 Mar, [facility] [place] [facility] [address] [id number] [place] [address]- 5167 Mar, [facility] [place] [facility] [address] [id number] [place] [address]- 2712 Mar, [facility] [place] [facility] [address] [id number] [place] 0650 Mar, [facility] [place] [facility] [address] [id number] [place] [address]- 3816 Feb, [facility] [place] [facility] [address] [id number] [place] [address]- 3868 Feb, [facility] [place] [facility] [address] [id number] [place] [address]- 9190 Feb, [facility] [place] [facility] [address] [id number] [place] [address]- 9655 Feb, [facility] [place] [facility] [address] [id number] [place] [address]- 6501 Feb, [facility] [place] [facility] [address] [id number] [place] [address]- 9625 Feb, [facility] [place] [facility] [address] [id number] [place] [address]- 3559 Jan, [facility] [place] [facility] [address] [id number] [place] [address]- 4030 Jan, [facility] [place] [facility] [address] [id number] [place] [address]- 0358 Jan, [facility] [place] [facility] [address] [id number] [place] [address]- 3288 Jan, [facility] [place] [facility] [address] [id number] [place] [address]- 4199 Jan, [facility] [place] [facility] [address] [id number] [place] [address]- 8692 Jan, [facility] [place] [facility] [address] [id number] [place] [address]- 3177 Dec, [facility] [place] [facility] [address] [id number] [place] [address]- 8706 Dec, [facility] [place] [facility] [address] [id number] [place] [address]- 5730 Nov, [facility] [place] [facility] [address] [id number] [place] [address]- 1946 Nov, [facility] [place] [facility] [address] [id number] [place] [address]- 3119 Oct, [facility] [place] [facility] [address] [id number] [place] [address]- 4726 Oct, [facility] [address] [id number] [place] [address]- 1339 Oct, [facility] [place] [facility] [address] [id number] [place] [address]- 1259 Oct, [facility] [place] [facility] [address] [id number] [place] [address]- 0991 Oct, [facility] [place] [facility] [address] [id number] [place] [address]- 9195 Oct, [facility] [place] [facility] [address] [id number] [place] [address]- 9407 Sep, [facility] [place] [facility] [address] [id number] [place] [address]- 4819 Sep, [facility] [place] [facility] [address] [id number] [place] [address]- 7394 Sep, [facility] [place] [facility] [address] [id number] [place] [address]- 7313 Sep, [facility] [place] [facility] [address] [id number] [place] [address]- 3987 August, [facility] [place] [facility] [address] [id number] [place] [address]- 9292 August, [facility] [place] [facility] [address] [id number] [place] [address]- 7126 August, [facility] [place] [facility] [address] [id number] [place] [address]- 2500 August, [facility] [place] [facility] [address] [id number] [place] [address]- 5680 August, [facility] [place] [facility] [address] [id number] [place] [address]- 8995 Jul, [facility] [place] [facility] [address] [id number] [place] [address]- 0659 Jul, [facility] [place] [facility] [address] [id number] [place] [address]- 7596 15 Jul, 2012 [facility] [address] [id number] [place] [address]- 1856 Jul, [facility] [address] [id number] [place] [address]- 2546 Jul, [facility] [address] [id number] [place] [address]- 2546 Jul, [facility] [address] [id number] [place] [address]- 2546 Jul, [facility] [address] [id number] [place] [address]- 2596 Jul, [facility] [address] [id number] [place] [address]- 3266 Jul, [facility] [address] [id number] [place] [address]- 5756 Jul, [facility] [address] [id number] [id number] Jun, [facility] [address] [id number] [place] [address]- 6376 Jun, [facility] [address] [id number] [place] [address]- 2546 Jun, [facility] [address] [id number] [place] [address]- 2546 Jun, [facility] [address] [id number] [place] [address]- 2546 Jun, [facility] [address] [id number] [place] [address]- 9866 May, [facility] [address] [id number] [place] [address]- 2546 May, [facility] [address] [id number], [place] [address]- 2546 May, [facility] [place] [facility] [address] [id number] [place] [address]- 0487 Apr, [facility] [place] [facility] [address] [id number] [place] [address]- 6637 Apr, [facility] [place] [facility] [address] [id number] [place] [address]- 8609 Apr, [facility] [place] [facility] [address] [id number] [place] [address]- 6784 Apr, [facility] [address] [id number] [place] [address]- 6500 Apr, [facility] [place] [facility] [address] [id number] [place] [address] Apr, [facility] [address] [id number] [place] [address] Mar, [facility] [address] [id number] [place] [address] Mar, [facility] [place] [facility] [address] [id number] [place] [address] Mar, [facility] [address] [id number] [place] [address] Mar, [facility] [place] [facility] [address] [id number] [place] [address] Feb, [facility] [place] [facility] [address] [id number], [place] [address] Feb, [facility] [place] [facility] [address] [id number] [place] [address] Feb, [facility] [place] [facility] [address] [id number] [place] [address] Feb, [facility] [place] [facility] [address] [id number] [place] [address] Feb, [facility] [place] [facility] [address] [id number], [place] [address] Feb, [facility] [place] [facility] [address] [id number] [place] [address] Feb, [facility] [place] [facility] [address] [id number], [place] [address] Feb, [facility] [place] [facility] [address] [facility] [id number] [place] [address] Feb, [facility] [place] [facility] [address] [id number], [place] [address] Feb, [facility] [place] [facility] [address] [id number] [place] [address]- [address] Feb, [facility] [place] [facility] [address] [id number] [place] [address]047 Feb, [facility] [place] [facility] [address] [facility] [id number], [place] [address] Feb, [facility] [place] [facility] [address] [id number] [place] [address] Feb, [facility] [place] [facility] [address] [id number], [place] [address] Feb, [facility] [place] [facility] [address] [facility] [id number], [place] [address] Feb, [facility] [place] [facility] [address] [id number], [place] [address] Jan, [facility] [place] [facility] [address] [id number], [place] [address] Jan, [facility] [place] [facility] [address] [id number], [place] [address] Jan, [facility] [place] [facility] [address] [facility] [id number], [place] [address] Jan, [facility] [place] [facility] [address] [facility] [id number] [place] [address]- [address] 30 Jan, 2012 [facility] [place] [facility] [address] [id number] [place] [address]- [address] 25 Jan, 2012 [facility] [place] [facility] [address] [id number] [place] [address]- 2006 25 Jan, 2012 [facility] [place] [facility] [address] [id number] [place] [address]- [address]46 16 Jan, 2012 [facility] [place] [facility] [address] [id number] [place] [address]- [address]6 16 Jan, 2012 [facility] [place] [facility] [address] [id number] [place] [address]- [address] 15 Jan, 2012 [facility] [place] [facility] [address] [id number] [place] [address]- [address] 15 Jan, 2012 [facility] [place] [facility] [address] [id number] [place] [address]- [address] Jan, [facility] [place] [facility] [address] [id number] [place] [address]- [address]61 26 Sep, 2011 [facility] [place] [facility] [address] [id number] [place] [address] 26 Sep, 2011 [facility] [place] [facility] [address] [id number] [place] [address]- [address]40 24 Sep, 2011 [facility] [place] [facility] [address] [id number] [place] [address]- [address]47 23 Sep, 2011 [facility] [place] [facility] [address] [id number] [place] [address] 2546 22 Sep, 2011 [facility] [place] [facility] [address] [id number] [place] [address] 2546 21 Sep, 2011 [facility] [place] [facility] [address] [id number] [place] [address] 2546 20 Sep, 2011 [facility] [place] [facility] [address] [id number] [place] [address]- [address]46 20 Sep, 2011 [facility] [place] [facility] [address] [id number] [place] [address]- [address]46 07 Sep, 2011 [facility] [place] [facility] [address] [id number] [place] [address]- [address] 06 Dec, 2011 [facility] [place] [facility] [address] [id number] [place] [address]- [address] 06 Dec, 2011 [facility] [place] [facility] [address] [id number] [place] [address]- [address] 05 Dec, 2011 [facility] [place] [facility] [address] [id number] [place] [address]- [address]759 Nov, [facility] [place] [facility] [address] [id number] [place] [address]- 6747 Nov, [facility] [place] [facility] [address] [id number] [place] [address]- 2739 Nov, [facility] [place] [facility] [address] [id number] [place] [address]- 2472 Nov, [facility] [place] [facility] [address] [id number] [place] [address]- [address] Nov, [facility] [place] [facility] [address] [id number] [place] [address]- [address]852 Nov, [facility] [place] [facility] [address] [id number] [place] [address]- [address]141 Nov, [facility] [place] [facility] [address] [id number] [place] [address]- [address] Nov, [facility] [place] [facility] [address] [id number] [place] [address] Oct, [facility] [place] [facility] [address] [id number] [place] [address] Oct, [facility] [place] [facility] [address] [id number] [place] [address] Oct, [facility] [place] [facility] [address] [id number] [place] [address] Oct, [facility] [place] [facility] [address] [id number] [place] [address] Oct, [facility] [place] [facility] [address] [id number] [place] [address] Oct, [facility] [place] [facility] [address] [id number] [place] [address] Oct, [facility] [place] [facility] [address] [id number] [place] [address] Sep, [facility] [place] [facility] [address] [id number] [place] [address] Sep, [facility] [place] [facility] [address] [id number] [place] [address] August, [facility] [place] [facility] [address] [id number] [place] [address] August, [facility] [address] [id number] [place] [address] August, [facility] [place] [facility] [address] [id number] [place] [address] August, [facility] [place] [facility] [address] [id number] [place] [address] Jul, [facility] [place] [facility] [address] [id number] [place] [address] Jul, [facility] [place] [facility] [address] [id number] [place] [address] Jul, [facility] [place] [facility] [address] [id number] [place] [address] Jul, [facility] [place] [facility] [address] [id number] [place] [address] Jul, [facility] [place] [facility] [address] [id number] [place] [address] Jul, [facility] [place] [facility] [address] [id number] [place] [address] Jul, [facility] [place] [facility] [address] [id number] [place] [address] Jul, [facility] [place] [facility] [address] [id number] [place] [address] Jul, [facility] [place] [facility] [address] [id number] [place] [address] 23 Jun, 2011 [facility] [place] [facility] [address] [id number] [place] [address] 19 Jun, 2011 [facility] [place] [facility] [address] [id number] [place] [address] 15 Jun, 2011 [facility] [place] [facility] [address] [id number] [place] [address] 14 Jun, 2011 [facility] [place] [facility] [address] [facility] [id number] [place] [address] Jun, [facility] [place] [facility] [address] [id number] [place] [address] Jun, [facility] [place] [facility] [address] [id number] [place] [address] Jun, [facility] [place] [facility] [address] [id number] [place] [address] 25 May, 2011 [facility] [place] [facility] [address] [id number] [place] [address] 24 May, 2011 [facility] [place] [facility] [address] [id number] [place] [address] 16 May, 2011 [facility] [place] [facility] [address] [id number] [place] [address] May, [facility] [place] [facility] [address] [id number] [place] [address] 03 May, 2011 [facility] [place] [facility] [address] [id number] [place] [address] Apr, [facility] [place] [facility] [address] [id number], [place] [address] Apr, [facility] [address] [id number] [place] [address] Apr, [facility] [place] [facility] [address] [id number] [place] [address] Apr, [facility] [place] [facility] [address] [facility] [id number] [place] [address] Apr, [facility] [place] [facility] [address] [id number] [place] [address] 30 Mar, 2011 [facility] [place] [facility] [address] [id number] [place] [address] Mar, [facility] [place] [facility] [address] [id number] [place] [address] Mar, [facility] [place] [facility] [address] [facility] [id number] [place] [address] Mar, [facility] [place] [facility] [address] [facility] [id number] [place] [address] Mar, [facility] [place] [facility] [address] [facility] [id number] [place] [address] Mar, [facility] [place] [facility] [address] [facility] [id number] [place] [address] Mar, [facility] [place] [facility] [address] [facility] [id number] [place] [address] Feb, [facility] [place] [facility] [address] [id number] [place] [address] Feb, [facility] [place] [facility] [address] [id number] [place] [address] Feb, [facility] [place] [facility] [address] [facility] [id number] [place] [address] 04 Feb, 2011 [facility] [place] [facility] [address] [facility] [id number] [place] [address] Jan, [facility] [place] [facility] [address] [facility] [id number] [place] [address] Jan, [facility] [address] [facility] [id number], [place] [address] Jan, [facility] [address] [facility] [id number] [place] [address] Jan, [facility] [address] [facility] [id number], [place] [address] Nov, [facility] [address] [facility] [id number] [place] [address] Mar, [facility] [address] [facility] [id number] [place] [address] Mar, [facility] [address] [facility] [id number], [place] [address] Mar, [facility] [id number], [place] [address] Mar, [facility] [address] [id number], [place] [address] Mar, [facility] [id number], [place] [address] Mar, [facility] [address] [id number], [place] [address] Feb, [facility] [address] [id number], [place] [address] 100[address] Feb, [facility] [address] [facility] [id number], [place] [address] Jan, [facility] [id number], [place] [address] Jan, [facility] [address] [facility] [id number][place] Jan, IMMUNIZATIONS Vaccine Route Administration Date Status JOSIAH 1 GM (IM) IM Intramuscular Dec 20, 2016 Administered SOCIAL HISTORY Never Assessed REASON FOR VISIT Injection, antibiotic-rocephin 1g IM-AHarrymanRN PLAN OF CARE VITAL SIGNS MEDICATIONS Unknown Medications RESULTS No Results PROCEDURES Procedure Date Ordered Result Body Site ROCEPHIN 1 GM (IM) Dec 20, 2016 THER/PROPH/DIAG INJ, SC/IM Dec 20, 2016 INSTRUCTIONS MEDICATIONS ADMINISTERED No Known Medications [...] 2016 Hospitalization History [facility] psych for SI 1988 Hospitalization History [facility]-Altered mental status 05/2017
--- OUTSIDE RECORDS SUMMARY | 2018-05-29 09:16 | XMS REPORT | Clinical Summary ---
Author Author Admin, E Organization [facility] Address Unknown Phone Unavailable Allergies, Adverse Reactions, Alerts Allergy Name Reaction Description Start Date Severity Status Provider No Known Allergies Jeniffer Elder Conditions or Problems Problem Name Problem Code Onset Date Status Entry Date Provider Comment Standard Description Annotate Incontinence, mixed, urge/stress 788.33 Active David Marcelino MD Mixed incontinence (female) (male) Hx of cystitis, acute V13.09 Active David Marcelino MD Other personal history of disorders of urinary system UTI's, recurrent 599.0 Active David Marcelino MD Urinary tract infection, site not specified Medication List Medication Instructions Start Date Stop Date Generic Name NDC Status Provider Patient Instruction CYCLOBENZAPRINE HCL 10 MG ORAL TABLET 1 tablet by mouth three times daily as needed for muscle spasm/pain CYCLOBENZAPRINE HCL 99121113964 No Longer Active David Marcelino MD Active VITAMIN C PLUS 1000 MG ORAL TABLET 3 tabs by mouth three times daily BIOFLAVONOID PRODUCTS 74871855391 Active David Marcelino MD Active TOPROL XL 50 MG ORAL TABLET EXTENDED RELEASE 24 HOUR 1 tab by mouth daily METOPROLOL SUCCINATE 02621359061 Active David Marcelino MD Active LEVOTHYROXINE SODIUM 150 MCG ORAL TABLET 1 pill by mouth daily, for thyroid LEVOTHYROXINE SODIUM 30920584151 Active David Marcelino MD Active REQUIP 5 MG ORAL TABLET 2 tabs by mouth daily ROPINIROLE HCL 04131994101 Active David Marcelino MD Active LASIX 40 MG ORAL TABLET 1 tablet by mouth daily FUROSEMIDE 52533368410 No Longer Active David Marcelino MD Active KLOR-CON M10 10 MEQ ORAL TABLET EXTENDED RELEASE 1 tablet by mouth daily POTASSIUM CHLORIDE GI CR 98353106371 No Longer Active David Marcelino MD Active KLONOPIN 1 MG ORAL TABLET 1 tab by mouth daily CLONAZEPAM 89710168564 No Longer Active David Marcelino MD Active AMITRIPTYLINE HCL 25 MG ORAL TABLET 1 tab by mouth daily at bedtime 09/21 AMITRIPTYLINE HCL 69927814793 No Longer Active David Marcelino MD Active AMBIEN 5 MG ORAL TABLET 1 po qHS PRN Insomnia ZOLPIDEM TARTRATE 41431211275 No Longer Active David Marcelino MD Active VESICARE 10 MG ORAL TABLET 1 pill by mouth daily for overactive bladder 06/05 SOLIFENACIN SUCCINATE 24961191607 No Longer Active David Marcelino MD Active EQ FIBER THERAPY 0.52 GM ORAL CAPSULE 1 cap by mouth three times daily PSYLLIUM 10474971791 Active David Marcelino MD Active FISH OIL CONCENTRATE 1000 MG ORAL CAPSULE 3 caps by mouth daily OMEGA- 3 FATTY ACIDS 18047720533 Active David Marcelino MD Active VITAMIN D3 53106 UNIT ORAL TABLET 1 cap by mouth monthly CHOLECALCIFEROL 63506464350 Active David Marcelino MD Active SYMBICORT 160-4.5 MCG/ACT INHALATION AEROSOL 2 puff BID BUDESONIDE- FORMOTEROL FUMARATE 23337166556 Active David Marcelino MD Active PROVENTIL HFA 108 (90 Base) MCG/ACT INHALATION AEROSOL SOLUTION 2 inhaltions prn ALBUTEROL SULFATE 14594036861 Active David Marcelino MD Active PROTONIX 40 MG ORAL TABLET DELAYED RELEASE 1 po q a.m. PANTOPRAZOLE SODIUM 78081471118 Active David Marcelino MD Active NORVASC 10 MG ORAL TABLET 1 tablet by mouth daily AMLODIPINE BESYLATE 39650800688 Active David Marcelino MD Active LYRICA 150 MG ORAL CAPSULE 1 tab by mouth 3 times daily PREGABALIN 91004483434 Active David Marcelino MD Active LOSARTAN POTASSIUM 100 MG ORAL TABLET 1 pill by mouth daily, for blood pressure LOSARTAN POTASSIUM 22280878256 Active David Marcelino MD Active VERAMYST 27.5 MCG/SPRAY NASAL SUSPENSION 1 spray in nostril as needed FLUTICASONE FUROATE 24472815273 Active David Marcelino MD Active FERROUS SULFATE 325 (65 Fe) MG ORAL TABLET 1 tablet by mouth daily FERROUS SULFATE 62014048211 Active David Marcelino MD Active CYMBALTA 60 MG ORAL CAPSULE DELAYED RELEASE PARTICLES 1 cap by mouth daily DULOXETINE HCL 77329109769 Active David Marcelino MD Active CETIRIZINE HCL 10 MG ORAL TABLET 1 po qd PRN Allergies CETIRIZINE HCL 70749272188 Active David Marcelino MD Active VESICARE 10 MG ORAL TABLET 1 pill by mouth daily for overactive bladder 06/05 VESICARE 10 MG ORAL TABLET SOLIFENACIN SUCCINATE Inactive AMBIEN 5 MG ORAL TABLET 1 po qHS PRN Insomnia AMBIEN 5 MG ORAL TABLET 268713 ZOLPIDEM TARTRATE Inactive AMITRIPTYLINE HCL 25 MG ORAL TABLET 1 tab by mouth daily at bedtime 09/21 AMITRIPTYLINE HCL 25 MG ORAL TABLET 466593 AMITRIPTYLINE HCL Inactive KLONOPIN 1 MG ORAL TABLET 1 tab by mouth daily KLONOPIN 1 MG ORAL TABLET 981962 CLONAZEPAM Inactive KLOR-CON M10 10 MEQ ORAL TABLET EXTENDED RELEASE 1 tablet by mouth daily KLOR-CON M10 10 MEQ ORAL TABLET EXTENDED RELEASE 8591608 POTASSIUM CHLORIDE GI CR Inactive LASIX 40 MG ORAL TABLET 1 tablet by mouth daily LASIX 40 MG ORAL TABLET 277440 FUROSEMIDE Inactive CYCLOBENZAPRINE HCL 10 MG ORAL TABLET 1 tablet by mouth three times daily as needed for muscle spasm/pain CYCLOBENZAPRINE HCL 10 MG ORAL TABLET 247192 CYCLOBENZAPRINE HCL Inactive Immunizations Vaccine Administration Date Value Standard Description influenza immunization (Flu Vax) has been administered Done according to patient influenza virus vaccine, unspecified formulation Vital Signs Date Name Value Unit Range Description blood pressure, diastolic, repeated by physician 66 BP montalvo blood pressure, diastolic 66 mm[Hg] BP montalvo blood pressure, systolic, repeated by physician 135 BP sys blood pressure, systolic 135 mm[Hg] BP sys height E&M 63 [in_us] Bdy height pulse rate E&M 62 /min Heart rate temperature E&M 98.8 [degF] Body temperature weight E&M 201.50 [lb_av] Weight Measured blood pressure, diastolic 66 mm[Hg] BP montalvo blood pressure, systolic 124 mm[Hg] BP sys height E&M 63 [in_us] Bdy height pulse rate E&M 74 /min Heart rate temperature E&M 97.1 [degF] Body temperature weight E&M 246 [lb_av] Weight Measured blood pressure, diastolic, repeated by physician 66 BP montalvo blood pressure, diastolic 66 mm[Hg] BP montalvo blood pressure, systolic, repeated by physician 120 BP sys blood pressure, systolic 120 mm[Hg] BP sys height E&M 63 [in_us] Bdy height pulse rate E&M 76 /min Heart rate temperature E&M 98.3 [degF] Body temperature weight E&M 245 [lb_av] Weight Measured Diagnostic Results Date Name Value Unit Range Description Office Visit: f/u uti - Chemistry RBC, urine, dipstick negative Office Visit: f/u uti - Urinalysis nitrite, urine, semiquantitative negative urobilinogen, urine, semiquantitative (dipstick) 0.2 leukocyte esterase, urine, by dipstick negative appearance, urine clear urine color yellow specific gravity, urine 1.010 pH, urine, semiquantitative 6.5 protein, urine, semiquantitative (dipstick) negative glucose, urine, semiquantitative negative ketones, urine, by test strip negative bilirubin, urine negative Encounters Code Encounter Date Provider Facility CPT-56660 Level 3 Est. Patient 16:23:28 BEBE Bardales [facility] CPT-96364 Level 3 Est. Patient 21:01:28 CDHugh Marcelino MD [facility] [place] CPT-03403 Level 3 Est. 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
--- OUTSIDE RECORDS SUMMARY | 2018-05-29 09:16 | XMS REPORT ---
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 Name Role Phone GHULAM BURNETT Unavailable PROBLEMS Type Condition ICD9-CM Code [id number] Code Onset Dates Condition Status SNOMED Code Problem Long-term use of high-risk medication Z79.899 Active 879708077 Problem Abnormal chest CT R93.8 Active 742473793 Problem Low back pain M54.5 Active 907207708 Problem Generalized anxiety disorder F41.1 Active 60704921 Problem Dysthymic disorder F34.1 Active 45674872 Problem Coronary artery disease involving ekwok coronary artery of ekwok heart, angina presence unspecified I25.10 Active 1450409244235 Problem Depressed F32.9 Active 03012481 Problem Fibromyalgia M79.7 Active 133481583 Problem Hypothyroid E03.9 Active 90968849 Problem Essential (primary) hypertension I10 Active 79894598 Problem Insomnia G47.00 Active 519784810 Problem Vitamin D deficiency E55.9 Active 40856245 Problem Anemia in chronic kidney disease D63.1 Active 500387912552592 Problem Chronic kidney disease, unspecified N18.9 Active 832831836 Problem Body mass index (BMI) of 40.0-44.9 in adult Z68.41 Active 618028340 Problem Stage 3 chronic kidney disease N18.3 Active 408003513 Problem Restless leg G25.81 Active 76716177 Problem Palpitations R00.2 Active 48791417 Problem Asthma J45.909 Active 855307957 Problem Primary osteoarthritis of left knee M17.12 Active 153317486 Problem Bipolar disorder, current episode manic without psychotic features F31.10 Active 105548099 Problem Mood disorder F39 Active 98738870 Problem Degenerative tear of medial meniscus of left knee M23.204 Active 942744969 Problem History of colon polyps Z86.010 Active 044589983 Problem Asthma with acute exacerbation in adult J45.901 Active 501589236 Problem Chronic kidney disease, stage 4 (severe) N18.4 Active 879766340 Problem Functional diarrhea K59.1 Active 54088590 Problem Hypokalemia E87.6 Active 82146354 Problem Mixed stress and urge urinary incontinence N39.46 Active 699858225 Problem History of anemia Z86.2 Active 715016165 Problem Other seasonal allergic rhinitis J30.2 Active 368361433 ALLERGIES No Information ENCOUNTERS Encounter Location Date Diagnosis [place] [address] [address] August, [place] [address] 12148- [address] Jul, Restless leg G25.81 ; Mixed stress and urge urinary incontinence N39.46 and Fibromyalgia M79.7 [place] [address] 05047- 5684 Jul, Chronic kidney disease, stage 4 (severe) N18.4 [place] [address] 80967- 6113 Jun, Orthostatic hypotension I95.1 ; Chronic kidney disease, stage 4 (severe) N18.4 ; Chest wall discomfort R07.89 and Body mass index (BMI) of 40.0-44.9 in adult Z68.41 [place] [address] 0[address]89- [address]056 Jun, [place] [address] 50826- 7488 Jun, Orthostatic hypotension I95.1 [place] [address] 66455- 5191 Jun, [facility] [address] 14[address]995 Jun, Orthostatic hypotension I95.1 ; Dysuria R30.0 and Acute cystitis without hematuria N30.00 [place] [address] 38508- 5576 Jun, [facility] [id number] [place] [address] 30752- 6695 Jun, Chronic kidney disease, stage 4 (severe) N18.4 [facility] [address] [place] [id number] [place] [address] 79296- 7166 Jun, Fibromyalgia M79.7 [facility] [address] [place] [id number] [place] [address] 44183 2546 Jun, [facility] [address] [place] [id number] [place] [address] 20243- 1422 Jun, [facility] [address] [place] [id number] [place] [address] 71036- [address] May, [address] R93.8 and Stage 3 chronic kidney disease N18.3 [facility] [address] [place] [id number] [place] [address] 00258- 8872 May, Chronic kidney disease, stage 4 (severe) N18.4 [facility] [address] [place] [id number] [place] [address] 86758- 3895 May, Chronic kidney disease, stage 4 (severe) N18.4 [facility] [address] [place] [id number] [place] [address] 19087- [address] May, [address] R93.8 [facility] [id number] [place] [address] 05512 2546 May, [facility] [address] [place] [id number] [place] [address] 77063- 3191 May, [facility] [address] [place] [id number] [place] [address] 15904- 5506 May, Generalized anxiety disorder F41.1 and Major depressive disorder, recurrent episode with anxious distress F33.9 [facility] [id number] [place] [address] 78631- 8726 May, Mood disorder F39 [facility] [address] [address] 8[address] Apr, [facility] [id number] [place] [address] 24360- 7338 Apr, Infected skin lesion L08.9 and Muscle strain of right shoulder region, initial encounter S46.911A [facility] [address] [place] [address] 03691- 9353 Apr, Generalized anxiety disorder F41.1 and Major depressive disorder, recurrent episode with anxious distress F33.9 [place] [address] [place] [id number] [place] [address] 34112- 8783 Apr, [place] [address] [place] [id number] [place] [address] 09311- 8624 Apr, Recent urinary tract infection Z87.440 and Hypothyroid E03.9 [place] [address] [place] [id number] [place] [address] 90097- 5445 Apr, Generalized anxiety disorder F41.1 and Major depressive disorder, recurrent episode with anxious distress F33.9 [place] [address] [place] [address] 18444- 6389 Apr, Recent urinary tract infection Z87.440 [facility] [id number] [place] [address] 35886- 2493 Mar, [facility] [id number] [place] [address] 85843 -3345 Mar, Dysuria R30.0 ; Acute cystitis without hematuria N30.00 and BMI 40.0-44.9, adult Z68.41 [facility] [address] [place] [address] 85338- 3021 Mar, [facility] [id number] [place] [address] 54000- 7023 Mar, [facility] [id number] [place] [address] 75422- 8550 Mar, Generalized anxiety disorder F41.1 and Major depressive disorder, recurrent episode with anxious distress F33.9 [facility] [address] [place] [id number] [place] [address] 89946- 5414 Feb, Conjunctivitis, bacterial H10.9 [facility] [address] [place] [id number] [place] [address] 27623- 5834 Feb, [facility] [address] 58645 -9658 Feb, Conjunctivitis, bacterial H10.9 [place] [address] [place] [id number] [place] [address] 59155- 6193 Feb, [facility] [address] 871[address] -9270 Feb, Dysuria R30.0 ; Acute cystitis N30.00 and BMI 40.0-44.9, adult Z68.41 [place] [address] 13719- 9781 Feb, [place] [address] [place] [id number] [place] [address] 96847- 2096 Feb, Generalized anxiety disorder F41.1 and Major depressive disorder, recurrent episode with anxious distress F33.9 [place] [address] [place] [id number] [place] [address] 05959- 5261 Feb, Mood disorder F39 and BMI 40.0-44.9, adult Z68.41 [place] [address] [place] [id number] [place] [address] 71390- 8212 Jan, [place] [address] [place] [id number] [place] [address] 75816- 7124 Jan, [place] [address] [place] [id number] [place] [address] 17670- 8861 Jan, Hypothyroid E03.9 [place] [address] [place] [id number] [place] [address] 33656- 6970 Jan, [place] [address] [place] [id number] [place] [address] 33124- 3746 Jan, Chronic kidney disease, unspecified N18.9 ; Hypokalemia E87.6 ; Essential (primary) hypertension I10 ; Fibromyalgia M79.7 ; Coronary artery disease involving ekwok coronary artery of ekwok heart, angina presence unspecified I25.10 ; Hypothyroid E03.9 and Encounter for immunization Z23 [place] [address] 07797- 9938 Jan, Hypothyroid E03.9 [place] [address] 02245- 7497 Jan, [place] [address] 18059- 5946 Dec, Vitamin D deficiency E55.9 [place] [address] 99393- 7499 Dec, Primary osteoarthritis of left knee M17.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 [place] [address] [place] [id number] [place] [address] 37418- 6225 19 Dec, 2016 Fibromyalgia M79.7 [place] [address] [place] [id number] [place] [address] 85527- 7560 18 Dec, 2016 Mood disorder F39 [place] [address] [place] [id number] [place] [address] 42103- 3346 13 Dec, 2016 [place] [address] [place] [id number] [place] [address] 94501- 9999 13 Dec, 2016 Generalized anxiety disorder F41.1 and Major depressive disorder, recurrent episode with anxious distress F33.9 [place] [address] 58538- 7413 11 Dec, 2016 [place] [address] [place] [id number] [place] [address] 30900- 0699 08 Dec, 2016 Streptococcal meningitis G00.2 [place] [address] [place] [address]- 2825 07 Dec, 2016 Streptococcal meningitis G00.2 [facility] [address] [place] [id number] [place] [address] 81785- 4585 07 Dec, 2016 [facility] [id number] [place] [address] 69801- 7363 Dec, Streptococcal meningitis G00.2 [facility] [address] [place] [id number] [place] [address] 61348- 0695 Dec, [facility] [address] [place] [id number] [place] [address] 34190- 6322 Dec, Major depressive disorder, recurrent episode with anxious distress F33.9 [place] [address] [place] [id number] [place] [address] 01382- 6822 Nov, Fever, unspecified fever cause R50.9 [place] [address] [place] [id number] [place] [address] 88527- 4986 Nov, [facility] [address] [place] [id number] [place] [address] 48425- 8752 Nov, Hypothyroid E03.9 [place] [address] [place] [id number] [place] [address] 99406- 2094 Nov, Generalized anxiety disorder F41.1 and Major depressive disorder, recurrent episode with anxious distress F33.9 [facility] [address] [address]- 0345 Nov, [facility] [address] [place] [address] [id number] Oct, Dental examination Z01.20 [facility] [address] [place] [id number] [place] [address] 76985- 7804 Oct, Generalized anxiety disorder F41.1 and Major depressive disorder, recurrent episode with anxious distress F33.9 [facility] [id number] [place] [address] 31152- 6662 Oct, Chronic kidney disease, stage 4 (severe) N18.4 [place] [address] [address]- 2700 Oct, [place] [address] [place] [id number] [place] [address] 00063- 4142 Oct, Fibromyalgia M79.7 [place] [address] [place] [id number] [place] [address] 39928- 6271 Oct, [place] [address] [place] [id number] [place] [address] 83494- 9076 Oct, Generalized anxiety disorder F41.1 ; Major depressive disorder, recurrent episode with anxious distress F33.9 and Bipolar disorder, current episode manic without psychotic features F31.10 [place] [address] [place] [id number] [place] [address] 02292- 5936 Sep, [place] [address] [place] [id number] [place] [address] 14948- 9699 Sep, [place] [address] [place] [id number] [place] [address] 70299- 9748 Sep, Vitamin D deficiency E55.9 [place] [id number] [place] [address] 04022- 2933 Sep, Vitamin D deficiency E55.9 [place] [id number] [place] [address] 39331- 8907 Sep, [place] [id number] [place] [address] 34605- 1614 Sep, Chronic kidney disease, stage 4 (severe) [...] examination Z12.39 and Low back pain M54.5 [place] [id number] [place] [address] 69862- 0198 August, Generalized anxiety disorder F41.1 and Major depressive disorder, recurrent episode with anxious distress F33.9 [place] [address] [place] [id number] [place] [address] 64250- 6283 August, Generalized anxiety disorder F41.1 and Major depressive disorder, recurrent episode with anxious distress F33.9 [place] [address] [place] [id number] [place] [address] 17004- 2684 August, Fibromyalgia M79.7 [place] [address] [place] [id number] [place] [address] 96525- 5206 Jul, Generalized anxiety disorder F41.1 and Major depressive disorder, recurrent episode with anxious distress F33.9 [place] [address] [place] [id number] [place] [address] 23576- 9989 Jul, Fibromyalgia M79.7 [place] [address] [place] [id number] [place] [address] 84596- 8729 Jul, Generalized anxiety disorder F41.1 [place] [address] [place] [id number] [place] [address] 18167- 4227 May, [place] [address] [place] [id number] [place] [address] 06972- 2479 May, Hypothyroid E03.9 [place] [id number] [place] [address] 11865- 8326 May, Chronic kidney disease, stage 4 (severe) [...] of e[place] heart, angina presence unspecified I25.10 [place] [address] [place] [id number] [place] [address] 52760- 4913 May, Vitamin D deficiency, unspecified E55.9 [facility] [address] [place] [id number] [place] [address] 37919- 4788 May, Generalized anxiety disorder F41.1 and Major depressive disorder, recurrent episode with anxious distress F33.9 [facility] [address] [place] [id number] [place] [address] 01146- 4668 Apr, Pain in right knee M25.561 and Pain in left knee M25.562 [facility] [address] [place] [id number] [place] [address] 22757- 5288 Apr, [facility] [address] [place] [id number] [place] [address] 09676- 0926 Apr, [facility] [address] [place] [id number] [place] [address] 70016- 4444 Apr, [facility] [address] [place] [id number] [place] [address] 61388- 4126 Mar, Generalized anxiety disorder F41.1 and Major depressive disorder, recurrent episode with anxious distress F33.9 [facility] [address] [place] [id number] [place] [address] 30651- 4826 Mar, Generalized anxiety disorder F41.1 and Major depressive disorder, recurrent episode with anxious distress F33.9 [facility] [id number] [place] [address] 22036- 1155 Mar, [facility] [address] [place] [id number] [place] [address] 64204- 7244 Mar, [facility] [address] [place] [id number] [place] [address] 08711- 3006 Mar, [facility] [address] [place] [id number] [place] [address] 28501- 4172 Mar, Asthma J45.909 and Fibromyalgia M79.7 [facility] [address] [place] [id number] [place] [address] 20465- 6361 Mar, Chronic kidney disease, stage 4 (severe) N18.4 ; Vitamin D deficiency E55.9 and Essential (primary) hypertension I10 [facility] [address] [place] [id number] [place] [address] 48681- 3672 Feb, [facility] [address] [place] [id number] [place] [address] 53762- 6810 Feb, Dysuria R30.0 ; Mixed stress and urge urinary incontinence N39.46 ; Fibromyalgia M79.7 and Chronic kidney disease, stage IV (severe) N18.4 [facility] [address] [place] [id number] [place] [address] 52984- 0643 Feb, Chronic kidney disease, stage 4 (severe) N18.4 [facility] [address] [place] [id number] [place] [address] 36860- 2207 Feb, Chronic kidney disease, stage 4 (severe) N18.4 [place] [address] [place] [id number] [place] [address] 54863- 7374 Feb, [facility] [address] [place] [id number] [place] [address] 76732- 7321 Feb, Vitamin D deficiency, unspecified E55.9 [facility] [address] [place] [id number] [place] [address] 06927- 2559 Jan, [facility] [address] [place] [id number] [place] [address] 21079- 2283 Jan, [facility] [address] [place] [id number] [place] [address] 36875- 7588 Dec, [facility] [address] [place] [id number] [place] [address] 01159- 2373 Dec, Chronic kidney disease, stage 4 (severe) N18.4 [facility] [address] [place] [id number] [place] [address] 32628- 7418 Dec, Dysthymic disorder F34.1 and Generalized anxiety disorder F41.1 [place] [address] [place] [address] [place] [address]- 2064 Dec, [facility] [address] [place] [id number] [place] [address] 43105- 5559 Dec, [facility] [address] [place] [id number] [place] [address] 69338- 6625 Dec, Dysthymic disorder F34.1 and Generalized anxiety disorder F41.1 [facility] [address] 44464- 6949 Dec, Dysuria R30.0 ; Chronic kidney disease, stage 4 (severe) N18.4 ; Hypertension I10 ; Dyspepsia R10.13 ; Yeast dermatitis B37.2 ; Palpitations R00.2 ; Hypothyroid E03.9 ; Functional diarrhea K59.1 and Other seasonal allergic rhinitis J30.2 [facility] [address] 16639 -4035 Dec, [facility] [address] 75568 -4076 Nov, Dysuria R30.0 and Stress incontinence N39.3 [facility] [address] [place] [id number] [place] [address] 07841- 4939 Nov, [facility] [address] [place] [id number] [place] [address] 81198- 7737 Nov, [facility] [address] 94113- 8361 Nov, Osteoarthritis of knees, bilateral M17.0 [facility] [address] [place] [id number] [place] [address] 89720- 3213 Nov, Dysthymic disorder F34.1 and Generalized anxiety disorder F41.1 [facility] [address] [place] [id number] [place] [address] 15110- 6422 Nov, [facility] [address] [place] [id number] [place] [address] 74230- 1589 Nov, [place] [address] [place] [id number] [place] [address] 94013- 5837 Nov, Urgency of urination R39.15 [place] [address] [place] [id number] [place] [address] 47556- 6373 Nov, [place] [address] [place] [id number] [place] [address] 58557- 5494 Nov, Chronic kidney disease, stage 4 (severe) N18.4 [place] [address] [place] [id number] [place] [address] 33775- 2538 Oct, Hypertension I10 ; Coronary artery disease involving ekwok coronary artery of e[place] heart, angina presence unspecified I25.10 ; Palpitations R00.2 ; Hypothyroid E03.9 ; Right foot pain M79.671 ; Functional diarrhea K59.1 and Other seasonal allergic rhinitis J30.2 [place] [address] 37760- 0453 Oct, Dysthymic disorder F34.1 and Generalized anxiety disorder F41.1 [place] [address] [place] [id number] [place] [address] 25424- 3804 Sep, [place] [address] [place] [id number] [place] [address] 65625- 0004 Sep, [place] [address] [place] [id number] [place] [address] 02597- 5240 Sep, [place] [address] [place] [id number] [place] [address] 37638- 8941 Sep, [facility] [address] [place] [id number] [place] [address] 79541- 1084 Sep, [facility] [address] 35750- 3810 Sep, Dysthymic disorder F34.1 and Generalized anxiety disorder F41.1 [facility] [address] [place] [id number] [place] [address] 68006- 3676 16 Tin, 2016 Asthma with acute exacerbation in adult J45.901 ; Dysuria R30.0 ; Chronic kidney disease, stage 4 (severe) N18.4 and History of anemia Z86.2 [place] [address] [place] [id number] [place] [address] 44551- 7711 Sep, Generalized anxiety disorder F41.1 and Dysthymic disorder F34.1 [place] [address] 40148- 7637 August, Screening breast examination Z12.39 and Acute recurrent maxillary sinusitis J01.01 [place] [address] 40496- 4531 August, Osteoarthritis of knees, bilateral M17.0 [place] [address] 06182- 3164 August, Chronic kidney disease, stage 4 (severe) N18.4 ; Acute non- recurrent maxillary sinusitis J01.00 ; Urinary problem R39.89 ; Bowel habit changes R19.4 ; Functional diarrhea K59.1 and History of colon polyps Z86.010 [place] [address] [place] [id number] [place] [address] 42102- 1129 Jul, Dysthymic disorder F34.1 and Generalized anxiety disorder F41.1 [place] [address] [place] [id number] [place] [address] 46312- 5072 Jul, [place] [address] [place] [id number] [place] [address] 87100- 8829 Jul, Dysthymic disorder F34.1 ; Generalized anxiety disorder F41.1 and skilled nursing use of drug Z79.899 [place] [address] [place] [id number] [place] [address] 09069- 3423 Jul, [place] [address] [place] [id number] [place] [address] 81501- 9155 Jun, [place] [id number] [place] [address] 01266- 2396 Jun, [place] [id number] [place] [address] 05360- 9171 May, [place] [address] [address] [address]- [address] May, Dysthymic disorder F34.1 and Generalized anxiety disorder F41.1 [address] [address] 73756- 5[address] Apr, Kidney disease N28.9 [address] [address] 18843- 0857 Apr, Dysthymic disorder F34.1 and Generalized anxiety disorder F41.1 [address] [address] 74[address]- [address] Apr, Chronic kidney disease, stage 4 (severe) N18.4 [address] [address] [address]- [address]32 Apr, Generalized anxiety disorder F41.1 ; Major depression, recurrent F33.9 and Sleep disturbance G47.9 [place] [id number] [place] [address] 67165- 7918 Mar, Generalized anxiety disorder F41.1 and Dysthymic disorder F34.1 [place] [id number] [place] [address] 57040- 4240 Mar, Generalized anxiety disorder F41.1 ; Dysthymic disorder F34.1 and Insomnia G47.00 [place] [id number] [place] [address] 36799- 1637 Mar, [place] [address] 44[address]- [address]897 Mar, [place] [address] 92450- [address]12 Mar, Osteoarthritis of knees, bilateral M17.0 [place] [address] 482[address]- 1287 Mar, Hypertension I10 ; Hypothyroid E03.9 ; Dysthymic disorder F34.1 ; Chronic kidney disease, stage 4 (severe) N18.4 and Nausea & vomiting R11.2 [place] [address] [address]- [address] Mar, Generalized anxiety disorder F41.1 ; Dysthymic disorder F34.1 and Insomnia G47.00 [place] [address] 9[address]- 5182 Mar, Dehydration E86.0 ; Chronic kidney disease, stage 4 (severe ) N18.4 and Nausea & vomiting R11.2 [facility] [address] [address] Mar, Gastroenteritis K52.[address] [address]- 6024 Mar, [place] [address] 6[address]- 1033 Mar, [address] [address]- 1581 Feb, Dysthymic disorder F34.1 and Generalized anxiety disorder F41.[address] 73479- 2447 Jan, UTI (urinary tract infection) N39.0 ; Asthma J45.909 ; Coronary artery disease involving ekwok coronary artery of ekwok heart, angina presence unspecified I25.10 ; Hypertension I10 ; Hypothyroid E03.9 ; Vitamin D deficiency E55.9 ; Insomnia G47.00 ; Palpitations R00.2 ; Depressed F32.9 ; Restless leg G25.81 and Anxiety F41.[address] [address]- 0892 Jan, Dysthymic disorder F34.1 and Generalized anxiety disorder F41.[address] 0[address]- 3934 Jan, [place] [address] [place] [id number] [place] [address] 9[address]65- 8234 Dec, [place] [address] 113[address]- 4507 Dec, Alkalosis 276.3 ; Chronic kidney disease, Stage IV (severe) 585.4 ; Hyperpotassemia 276.7 ; Secondary hyperparathyroidism, renal 588.81 ; Proteinuria 791.0 ; Unspecified vitamin D deficiency 268.9 ; Anemia in chronic kidney disease 285.21 ; Other and unspecified hyperlipidemia 272.4 ; Hypertension, essential, benign 401.1 and Chronic kidney disease (CKD), stage III (moderate) 585.3 [place] [address] [place] [id number] [place] [address] 15561- 0228 Dec, [place] [address] [place] [id number] [place] [address] 69167- 3263 Dec, Depressive disorder, not elsewhere classified 311 and Generalized anxiety disorder 300.02 [place] [address] [place] [id number] [place] [address] 29840- 7409 Dec, [place] [address] 66384- 9288 Dec, [place] [address] [place] [id number] [place] [address] 74241- 8388 Nov, Depressive disorder, not elsewhere classified 311 and Generalized anxiety disorder 300.02 [place] [address] [place] [id number] [place] [address] 50679- 7793 Nov, Arthritis of both knees 716.96 [place] [address] 07184- 5138 07 Nov, 2014 PAF (paroxysmal atrial fibrillation) 427.31 ; CAD (coronary artery disease) 414.00 ; Chest pain 786.50 and Chronic kidney disease (CKD) stage G4/A1, severely decreased glomerular filtration rate (GFR) between 15-29 mL/min/1.73 square meter and albuminuria creatinine ratio less than 30 mg/g 585.4 [place] [id number] [place] [address] 05637- 8850 Oct, Coronary atherosclerosis of unspecified type of vessel, ekwok or graft 414.00 ; Chronic kidney disease, Stage IV (severe) 585.4 ; Hypertension 401.9 and Edema 782.3 [place] [address] [place] [id number] [place] [address] 96554- 1874 Oct, Depressive disorder, not elsewhere classified 311 and Generalized anxiety disorder 300.02 [place] [address] 02900- 8175 Oct, Depressive disorder, not elsewhere classified 311 and Generalized anxiety disorder 300.[address] 23484- 5801 Oct, [place] [id number] [place] [address] 45498- 9417 Oct, [place] [address] 01250- 8061 Sep, [place] [id number] [place] [address] 44013- 5429 Sep, Chronic kidney disease, Stage IV (severe) 585.4 [place] [address] [place] [id number] [place] [address] 65146- 8767 Sep, [place] [id number] [place] [address] 83131- 5325 Sep, Coronary atherosclerosis of unspecified type of vessel, ekwok or graft 414.00 ; Hypertension 401.9 ; Edema 782.3 and Hypothyroidism 244.[address] 41188- 2067 Sep, Coronary atherosclerosis of unspecified type of vessel, ekwok or graft 414.00 ; Hypertension 401.9 ; Fibromyalgia 729.1 ; Edema 782.3 ; Hypothyroidism 244.9 and Anemia 285.[address] 49281- 9337 Sep, Anxiety disorder, unspecified 300.00 and Depressive disorder , not elsewhere classified 311 [facility] [id number] [address] Sep, [facility] [address] [id number] [address]841 August, Generalized anxiety disorder 300.02 [facility] [address] [place] [id number] [place] [address] 31358- 3038 August, Closed fracture of lateral malleolus 824.2 [facility] [id number] [address]- 4135 Jul, [facility] [address] [place] [id number] [place] [address] 97840- 0723 Jul, [facility] [address] [address]- 8630 Jun, [facility] [id number] [address]- 4876 Jun, [facility] [id number] [address]- 8905 Jun, [facility] [id number] [address]- 1579 Jun, [facility] [id number] [address]- 2101 Jun, [facility] [id number] [address]- 7286 Jun, [facility] [id number] 4116 May, [facility] [id number] 2929 May, [facility] [address] [place] [id number] 2604 May, [facility] [id number] [address]- 3283 18 May, 2014 [facility] [place] [facility] [address] [id number] [place] [address]- 8686 16 May, 2014 [facility] [place] [facility] [address] [id number] [place] [address]- 2546 16 May, 2014 [facility] [place] [facility] [address] [id number] [place] [address]- 6846 13 May, 2014 [facility] [place] [facility] [address] [id number] [place] [address]- 2546 13 May, 2014 [facility] [place] [facility] [address] [id number] [place] [address]- 2986 10 May, 2014 [facility] [place] [facility] [address] [id number] [place] [address]- 8873 10 May, 2014 [facility] [place] [facility] [address] [id number] [place] [address]- 4618 Apr, [facility] [place] [facility] [address] [id number] [place] [address]- 0351 Apr, [facility] [place] [facility] [address] [id number] [place] [address]- 3271 Mar, [facility] [place] [facility] [address] [id number] [place] [address]- 0378 Mar, [facility] [place] [facility] [address] [id number] [place] [address]- 2545 Mar, [facility] [place] [facility] [address] [id number] [place] [address]- 2546 Mar, [facility] [place] [facility] [address] [id number] [place] [address] 2546 15 Mar, 2014 [facility] [place] [facility] [address] [id number] [place] [address]- 2544 15 Mar, 2014 [facility] [place] [facility] [address] [id number] [place] [address]- 2547 Mar, [facility] [place] [facility] [address] [id number] [place] [address]- 7181 Feb, [facility] [place] [facility] [address] [id number] [place] [address]- 4821 Feb, [facility] [place] [facility] [address] [id number] [place] [address]- 1367 Feb, [facility] [place] [facility] [address] [id number] [place] [address]- 0943 Jan, [facility] [place] [facility] [address] [id number] [place] [address]- 8651 Jan, [facility] [place] [facility] [address] [id number] [place] [address]- 1395 Jan, [facility] [place] [facility] [address] [id number] [place] [address]- 8496 Jan, [facility] [place] [facility] [address] [id number] [place] [address]- 5587 Jan, [facility] [place] [facility] [address] [id number] [place] [address]- 3187 Jan, [facility] [place] [facility] [address] [id number] [place] [address]- 3918 Jan, [facility] [place] [facility] [address] [id number], [place] [address]- 2323 Jan, [facility] [place] [facility] [address] [id number], [place] [address]- 6232 Jan, [facility] [place] [facility] [address] [id number] [place] [address]- 0357 Jan, [facility] [place] [facility] [address] [id number] [place] [address]- 5008 Nov, [facility] [place] [facility] [address] [id number] [place] [address]- 4362 Nov, [facility] [place] [facility] [address] [id number] [place] [address]- 0937 Nov, [facility] [place] [facility] [address] [id number] [place] [address]- 9225 Oct, [facility] [place] [facility] [address] [id number] [place] [address]- 0031 Oct, [facility] [place] [facility] [address] [id number] [place] [address]- 0883 Oct, [facility] [place] [facility] [address] [id number] [place] [address]- 5282 Oct, [facility] [place] [facility] [address] [id number] [place] [address]- 5775 Oct, [facility] [place] [facility] [address] [id number] [place] [address]- 8719 Oct, [facility] [place] [facility] [address] [id number] [place] [address]- 1301 Oct, [facility] [place] [facility] [address] [id number] [place] [address]- 4174 Oct, [facility] [place] [facility] [address] [id number] [place] [address]- 6737 Oct, [facility] [place] [facility] [address] [id number] [place] [address]- 4884 Sep, [facility] [place] [facility] [address] [id number] [place] [address]- 2204 Sep, [facility] [place] [facility] [address] [id number] [place] [address]- 7538 Sep, [facility] [place] [facility] [address] [id number] [place] [address]- 1594 Sep, [facility] [place] [facility] [address] [id number] [place] [address]- 6919 Sep, [facility] [place] [facility] [address] [id number] [place] [address]- 2210 Sep, [facility] [place] [facility] [address] [id number] [place] [address]- 5361 Sep, [facility] [place] [facility] [address] [id number] [place] [address]- 4926 Sep, [facility] [place] [facility] [address] [id number] [place] [address]- 5764 Sep, [facility] [place] [facility] [address] [id number] [place] [address]- 5000 August, [facility] [place] [facility] [address] [id number] [place] [address]- 9349 August, [facility] [place] [facility] [address] [id number] [place] [address]- 6720 August, [facility] [place] [facility] [address] [id number] [place] [address]- 6542 August, [facility] [place] [facility] [address] [id number] [place] [address]- 3370 August, [facility] [place] [facility] [address] [id number] [place] [address]- 8026 August, [facility] [place] [facility] [address] [id number] [place] [address]- 6464 Jul, [facility] [place] [facility] [address] [id number] [place] [address]- 8264 Jul, [facility] [place] [facility] [address] [id number], [place] [address]- 2450 Jul, [facility] [place] [facility] [address] [id number] [place] [address]- 7110 Jul, [facility] [place] [facility] [address] [id number] [place] [address]- 5186 Jul, [facility] [place] [facility] [address] [id number] [place] 4153 Jul, [facility] [place] [facility] [address] [id number] [place] [address]- 9250 Jun, [facility] [address] [id number] [place] [address]- 8872 Jun, [facility] [place] [facility] [address] [id number] [place] 7306 May, [facility] [place] [facility] [address] [id number] [place] [address]- 1916 May, [facility] [place] [facility] [address] [id number] [place] [address]- 5814 May, [facility] [place] [facility] [address] [id number] [place] [address]- 3098 May, [facility] [place] [facility] [address] [id number] [place] [address]- 3322 Apr, [facility] [address] [id number] [place] [address]- 8902 Apr, [facility] [place] [facility] [address] [id number] [place] [address]- 6310 Mar, [facility] [place] [facility] [address] [id number] [place] [address]- 8112 Mar, [facility] [place] [facility] [address] [facility] [id number] [place] [address]- 8834 Mar, [facility] [place] [facility] [address] [id number] [place] [address]- 7231 17 Mar, 2013 [facility] [place] [facility] [address] [id number] [place] [address]- 1981 Mar, [facility] [place] [facility] [address] [id number] [place] [address]- 5690 05 Mar, 2013 [facility] [place] [facility] [address] [id number] [place] [address]- 7031 Feb, [facility] [place] [facility] [address] [id number] [place] 7806 Feb, [facility] [place] [facility] [address] [id number] [place] [address]- 8050 14 Feb, 2013 [facility] [place] [facility] [address] [id number] [place] [address]- 1415 14 Feb, 2013 [facility] [place] [facility] [address] [id number] [place] [address]- 7919 05 Feb, 2013 [facility] [place] [facility] [address] [id number] [place] [address]- 4496 Feb, [facility] [place] [facility] [address] [id number] [place] [address]- 2904 Jan, [facility] [place] [facility] [address] [id number] [place] [address]- 5767 Jan, [facility] [place] [facility] [address] [id number] [place] [address]- 0531 Jan, [facility] [place] [facility] [address] [id number] [place] [address]- 7138 Jan, [facility] [place] [facility] [address] [id number] [place] [address]- 0206 Jan, [facility] [place] [facility] [address] [id number] [place] [address]- 4653 Jan, [facility] [place] [facility] [address] [id number] [place] [address]- 3565 Dec, [facility] [place] [facility] [address] [id number] [place] [address]- 0870 Dec, [facility] [place] [facility] [address] [id number] [place] 8310 Nov, [facility] [place] [facility] [address] [id number] [place] 1845 Nov, [facility] [place] [facility] [address] [id number] [place] [address]- 6422 Oct, [facility] [place] [facility] [address] [id number] [place] [address]- 9548 Oct, [facility] [address] [id number] [place] [address]- 9411 Oct, [facility] [place] [facility] [address] [id number] [place] [address]- 9453 Oct, [facility] [place] [facility] [address] [id number] [place] [address]- 0786 Oct, [facility] [place] [facility] [address] [id number] [place] [address]- 3658 Oct, [facility] [place] [facility] [address] [id number] [place] [address]- 4208 Sep, [facility] [place] [facility] [address] [id number] [place] [address]- 5409 Sep, [facility] [place] [facility] [address] [id number] [place] [address]- 9032 Sep, [facility] [place] [facility] [address] [id number] [place] [address]- 6817 Sep, [facility] [place] [facility] [address] [id number] [place] [address]- 8463 August, [facility] [place] [facility] [address] [id number] [place] [address]- 5275 August, [facility] [place] [facility] [address] [id number] [place] [address]- 7847 August, [facility] [place] [facility] [address] [id number] [place] [address]- 4544 August, [facility] [place] [facility] [address] [id number] [place] [address]- 5286 August, [facility] [place] [facility] [address] [id number] [place] [address]- 4192 Jul, [facility] [place] [facility] [address] [id number] [place] [address]- 7267 Jul, [facility] [place] [facility] [address] [id number] [place] [address]- 8716 15 Jul, 2012 [facility] [address] [id number] [place] [address]- 5496 Jul, [facility] [address] [id number] [place] [address]- 4506 Jul, [facility] [address] [id number] [place] [address]- 6686 Jul, [facility] [address] [id number] [place] [address]- 2546 Jul, [facility] [address] [id number] [place] [address]- 6906 Jul, [facility] [address] [id number] [place] [address]- 8726 Jul, [facility] [address] [id number] [place] [address]- 7196 Jul, [facility] [address] [id number] Jun, [facility] [address] [id number] [place] [address]- 8116 Jun, [facility] [address] [id number] [address]- 3946 Jun, [facility] [address] [id number] [place] [address]- 2546 Jun, [facility] [address] [id number], [place] [address]- 2546 Jun, [facility] [address] [id number] [place] [address]- 0176 May, [facility] [place] [facility] [address] [id number] [place] [address]- 2546 May, [facility] [address] [id number], [place] [address]- 9186 May, [facility] [address] [id number] [place] [address]- 5403 Apr, [facility] [address] [id number] [place] [address]- 4855 Apr, [facility] [address] [id number] [place] [address]- 3028 Apr, [facility] [address] [id number] [place] [address]- 9757 Apr, [facility] [address] [id number] [place] [address]- 3438 Apr, [facility] [address] [id number] [place] [address]- 9222 Apr, [facility] [address] [id number] [place] [address]- 6998 Mar, [facility] [address] [id number] [place] [address]- 7698 Mar, [facility] [address] [id number] [place] [address]- 3176 Mar, [facility] [address] [id number] [place] [address]- 3689 Mar, [facility] [address] [id number] [place] [address]- 7545 Feb, [facility] [address] [id number] [place] [address]- 7285 Feb, [facility] [address] [id number] [place] [address]- 8813 Feb, [facility] [place] [facility] [address] [id number] [place] [address]- 1450 Feb, [facility] [address] [id number] [place] [address]- 1703 Feb, [facility] [address] [id number] [place] [address]- 6130 Feb, [facility] [place] [facility] [address] [id number] [place] [address]- 1051 Feb, [facility] [place] [facility] [address] [id number] [place] [address]- 6284 Feb, [facility] [place] [facility] [address] [id number] [place] [address]- 9469 Feb, [facility] [place] [facility] [address] [id number] [place] [address] Feb, [facility] [place] [facility] [address] [id number] [place] [address] Feb, [facility] [place] [facility] [address] [id number] [place] [address] Feb, [facility] [place] [facility] [address] [id number] [place] [address] Feb, [facility] [place] [facility] [address] [id number] [place] [address] Feb, [facility] [place] [facility] [address] [id number] [place] [address] Feb, [facility] [place] [facility] [address] [id number] [place] [address] Feb, [facility] [place] [facility] [address] [id number], [place] [address] Jan, [facility] [place] [facility] [address] [id number], [place] [address] Jan, [facility] [place] [facility] [address] [id number] [place] [address] Jan, [facility] [place] [facility] [address] [id number] [place] [address] Jan, [facility] [place] [facility] [address] [id number] [place] [address] 30 Jan, 2012 [facility] [place] [facility] [address] [id number] [place] [address] 25 Jan, 2012 [facility] [place] [facility] [address] [id number] [place] [address] 25 Jan, 2012 [facility] [place] [facility] [address] [id number] [place] [address]46 16 Jan, 2012 [facility] [address] [id number] [place] [address] 16 Jan, 2012 [facility] [place] [facility] [address] [id number] [place] [address] 15 Jan, 2012 [facility] [address] [id number] [place] [address] 15 Jan, 2012 [facility] [place] [facility] [address] [id number] [place] [address] Jan, [facility] [place] [facility] [address] [id number] [place] [address] 26 Sep, 2011 [facility] [place] [facility] [address] [id number] [place] [address]- [address]48 26 Sep, 2011 [facility] [place] [facility] [address] [id number] [place] [address]- [address]44 24 Sep, 2011 [facility] [address] [id number] [place] [address]- [address] 23 Sep, 2011 [facility] [place] [facility] [address] [id number] [place] [address] 2542 22 Sep, 2011 [facility] [place] [facility] [address] [id number] [place] [address]41 21 Sep, 2011 [facility] [place] [facility] [address] [id number] [place] [address] 2546 20 Sep, 2011 [facility] [place] [facility] [address] [id number] [place] [address]46 20 Sep, 2011 [facility] [place] [facility] [address] [id number] [place] [address]- [address] 07 Sep, 2011 [facility] [place] [facility] [address] [id number] [place] [address] 06 Dec, 2011 [facility] [place] [facility] [address] [id number] [place] [address] 95[address] 06 Dec, 2011 [facility] [place] [facility] [address] [id number] [place] [address] 05 Dec, 2011 [facility] [place] [facility] [address] [id number] [place] [address] Nov, [facility] [place] [facility] [address] [id number] [place] [address] Nov, [facility] [place] [facility] [address] [id number] [place] [address] Nov, [facility] [place] [facility] [address] [id number] [place] [address] 2685 Nov, [facility] [place] [facility] [address] [id number] [place] [address] Nov, [facility] [place] [facility] [address] [id number] [place] [address] 40[address] Nov, [facility] [place] [facility] [address] [id number] [place] [address] Nov, [facility] [place] [facility] [address] [id number] [place] [address] 76[address] Nov, [facility] [place] [facility] [address] [id number] [place] [address] 94[address] Oct, [facility] [place] [facility] [address] [id number] [place] [address] 21[address] Oct, [facility] [place] [facility] [address] [id number] [place] [address]120 Oct, [facility] [place] [facility] [address] [id number] [place] [address] Oct, [facility] [place] [facility] [address] [id number], [place] [address] Oct, [facility] [address] [id number] [place] [address] Oct, [facility] [place] [facility] [address] [id number] [place] [address] 6761 Oct, [facility] [address] [id number] [place] [address] 4096 Sep, [facility] [place] [facility] [address] [id number] [place] [address]- 4[address] Sep, [facility] [address] [id number] [place] [address] 2914 August, [facility] [address] [id number] [place] [address] August, [facility] [address] [id number] [place] [address] August, [facility] [address] [id number] [place] [address] August, [facility] [address] [id number] [place] [address] Jul, [facility] [address] [id number] [place] [address] Jul, [facility] [place] [facility] [address] [id number] [place] [address] 80[address] Jul, [facility] [place] [facility] [address] [id number] [place] [address] Jul, [facility] [place] [facility] [address] [id number] [place] [address] Jul, [facility] [place] [facility] [address] [id number] [place] [address]- [address] Jul, [facility] [place] [facility] [address] [id number] [place] [address] Jul, [facility] [place] [facility] [address] [id number] [place] [address] 02 Jul, 2011 [facility] [place] [facility] [address] [id number] [place] [address] Jul, [facility] [place] [facility] [address] [id number] [place] [address] 23 Jun, 2011 [facility] [place] [facility] [address] [id number] [place] [address] 19 Jun, 2011 [facility] [place] [facility] [address] [id number] [place] [address] 15 Jun, 2011 [facility] [place] [facility] [address] [id number] [place] [address] 14 Jun, 2011 [facility] [place] [facility] [address] [id number] [place] [address] Jun, [facility] [place] [facility] [address] [id number] [place] [address] Jun, [facility] [place] [facility] [address] [id number] [place] [address] Jun, [facility] [place] [facility] [address] [id number] [place] [address] 25 May, 2011 [facility] [place] [facility] [address] [id number] [place] [address] 24 May, 2011 [facility] [place] [facility] [address] [id number] [place] [address] May, [facility] [place] [facility] [address] [id number] [place] [address] May, [facility] [place] [facility] [address] [id number] [place] [address] 03 May, 2011 [facility] [place] [facility] [address] [id number] [place] [address] Apr, [facility] [place] [facility] [address] [id number], [place] [address] Apr, [facility] [place] [facility] [address] [id number] [place] [address] Apr, [facility] [place] [facility] [address] [id number] [place] [address] Apr, [facility] [place] [facility] [address] [id number] [place] [address] Apr, [facility] [place] [facility] [address] [id number] [place] [address] Mar, [facility] [place] [facility] [address] [id number] [place] [address] Mar, [facility] [place] [facility] [address] [id number] [place] [address] Mar, [facility] [place] [facility] [address] [id number] [place] [address] Mar, [facility] [place] [facility] [address] [id number] [place] [address] Mar, [facility] [place] [facility] [address] [id number] [place] [address] Mar, [facility] [place] [facility] [address] [id number] [place] [address] Mar, [facility] [place] [facility] [address] [id number], [place] [address] Feb, [facility] [place] [facility] [address] [id number] [place] [address] Feb, [facility] [place] [facility] [address] [id number] [place] [address] Feb, [facility] [place] [facility] [address] [id number] [place] [address] Feb, [facility] [place] [facility] [address] [id number] [place] [address] Jan, [facility] [place] [facility] [address] [facility] [id number], [place] [address] Jan, [facility] [address] [facility] [id number], [place] [address] Jan, [facility] [address] [facility] [id number][place] [address] [address] Jan, [facility] [address] [facility] [id number][place] Nov, [facility] [address] [facility] [id number], [place] [address] Mar, [facility] [address] [facility] [id number][place] Mar, [facility] [address] [facility] [id number], [place] [address] Mar, [facility] [address] [facility] [id number], [place] [address] Mar, [facility] [address] [facility] [id number], [place] [address] Mar, [facility] [address] [facility] [id number], [place] [address] Mar, [facility] [address] [facility] [id number], [place] [address] Feb, [facility] [address] [facility] [id number], [place] [address] Feb, [facility] [address] [facility] [id number], [place] [address] Jan, [facility] [address] [facility] [id number][place] Jan, [facility] [address] [facility] [id number], [place] [address] Jan, IMMUNIZATIONS No Known Immunizations SOCIAL HISTORY Never Assessed REASON FOR VISIT Rocephin Injections PLAN OF CARE VITAL SIGNS MEDICATIONS Unknown [...]
--- OUTSIDE RECORDS SUMMARY | 2018-05-29 09:17 | XMS REPORT | Clinical Summary ---
Author Author Admin, E Organization [facility] Address Unknown Phone Unavailable Allergies, Adverse [...] as needed for muscle spasm/pain CYCLOBENZAPRINE HCL 94428787645 No Longer Active David Marcelino MD Active VITAMIN C PLUS 1000 MG ORAL TABLET 3 tabs by mouth three times daily BIOFLAVONOID PRODUCTS 35379301351 Active David Marcelino MD Active TOPROL XL 50 MG ORAL TABLET EXTENDED RELEASE 24 HOUR 1 tab by mouth daily METOPROLOL SUCCINATE 65526598718 Active David Marcelino MD Active LEVOTHYROXINE SODIUM 150 MCG ORAL TABLET 1 pill by mouth daily, for thyroid LEVOTHYROXINE SODIUM 49398892042 Active David Marcelino MD Active REQUIP 5 MG ORAL TABLET 2 tabs by mouth daily ROPINIROLE HCL 95701489974 Active David Marcelino MD Active LASIX 40 MG ORAL TABLET 1 tablet by mouth daily FUROSEMIDE 25514345432 No Longer Active David Marcelino MD Active KLOR-CON M10 10 MEQ ORAL TABLET EXTENDED RELEASE 1 tablet by mouth daily POTASSIUM CHLORIDE GI CR 52787131850 No Longer Active David Marcelino MD Active KLONOPIN 1 MG ORAL TABLET 1 tab by mouth daily CLONAZEPAM 51138993092 No Longer Active David Marcelino MD Active AMITRIPTYLINE HCL 25 MG ORAL TABLET 1 tab by mouth daily at bedtime 09/21 AMITRIPTYLINE HCL 15774952010 No Longer Active David Marcelino MD Active AMBIEN 5 MG ORAL TABLET 1 po qHS PRN Insomnia ZOLPIDEM TARTRATE 60851521612 No Longer Active David Marcelino MD Active VESICARE 10 MG ORAL TABLET 1 pill by mouth daily for overactive bladder 06/05 SOLIFENACIN SUCCINATE 69442840560 No Longer Active David Marcelino MD Active EQ FIBER THERAPY 0.52 GM ORAL CAPSULE 1 cap by mouth three times daily PSYLLIUM 06887171992 Active David Marcelino MD Active FISH OIL CONCENTRATE 1000 MG ORAL CAPSULE 3 caps by mouth daily OMEGA- 3 FATTY ACIDS 33130411637 Active David Marcelino MD Active VITAMIN D3 64745 UNIT ORAL TABLET 1 cap by mouth monthly CHOLECALCIFEROL 94049751063 Active David Marcelino MD Active SYMBICORT 160-4.5 MCG/ACT INHALATION AEROSOL 2 puff BID BUDESONIDE- FORMOTEROL FUMARATE 42028174610 Active David Marcelino MD Active PROVENTIL HFA 108 (90 Base) MCG/ACT INHALATION AEROSOL SOLUTION 2 inhaltions prn ALBUTEROL SULFATE 61981707399 Active David Marcelino MD Active PROTONIX 40 MG ORAL TABLET DELAYED RELEASE 1 po q a.m. PANTOPRAZOLE SODIUM 97057812196 Active David Marcelino MD Active NORVASC 10 MG ORAL TABLET 1 tablet by mouth daily AMLODIPINE BESYLATE 24875241740 Active David Marcelino MD Active LYRICA 150 MG ORAL CAPSULE 1 tab by mouth 3 times daily PREGABALIN 17316368471 Active David Marcelino MD Active LOSARTAN POTASSIUM 100 MG ORAL TABLET 1 pill by mouth daily, for blood pressure LOSARTAN POTASSIUM 75906253780 Active David Marcelino MD Active VERAMYST 27.5 MCG/SPRAY NASAL SUSPENSION 1 spray in nostril as needed FLUTICASONE FUROATE 68322112599 Active David Marcelino MD Active FERROUS SULFATE 325 (65 Fe) MG ORAL TABLET 1 tablet by mouth daily FERROUS SULFATE 50807303604 Active David Marcelino MD Active CYMBALTA 60 MG ORAL CAPSULE DELAYED RELEASE PARTICLES 1 cap by mouth daily DULOXETINE HCL 89994168240 Active David Marcelino MD Active CETIRIZINE HCL 10 MG ORAL TABLET 1 po qd PRN Allergies CETIRIZINE HCL 54241929134 Active David Marcelino MD Active VESICARE 10 MG ORAL TABLET 1 pill by mouth daily for overactive bladder 06/05 VESICARE 10 MG ORAL TABLET SOLIFENACIN SUCCINATE Inactive AMBIEN 5 MG ORAL TABLET 1 po qHS PRN Insomnia AMBIEN 5 MG ORAL TABLET 641064 ZOLPIDEM TARTRATE Inactive AMITRIPTYLINE HCL 25 MG ORAL TABLET 1 tab by mouth daily at bedtime 09/21 AMITRIPTYLINE HCL 25 MG ORAL TABLET 408551 AMITRIPTYLINE HCL Inactive KLONOPIN 1 MG ORAL TABLET 1 tab by mouth daily KLONOPIN 1 MG ORAL TABLET 169550 CLONAZEPAM Inactive KLOR-CON M10 10 MEQ ORAL TABLET EXTENDED RELEASE 1 tablet by mouth daily KLOR-CON M10 10 MEQ ORAL TABLET EXTENDED RELEASE 1415064 POTASSIUM CHLORIDE GI CR Inactive LASIX 40 MG ORAL TABLET 1 tablet by mouth daily LASIX 40 MG ORAL TABLET 854774 FUROSEMIDE Inactive CYCLOBENZAPRINE HCL 10 MG ORAL TABLET 1 tablet by mouth three times daily as needed for muscle spasm/pain CYCLOBENZAPRINE HCL 10 MG ORAL TABLET 539336 CYCLOBENZAPRINE HCL Inactive Immunizations Vaccine Administration Date [...] negative Encounters Code Encounter Date Provider Facility CPT-50174 Level 3 Est. Patient 16:23:28 BEBE Bardales [facility] CPT-38393 Level 3 Est. Patient 21:01:28 CDHugh Marcelino MD [facility] [place] CPT-07718 Level 3 Est. Patient 21:05:34 TALENT DEVELOPMENT DIRECTOR David Marcelino MD [facility] CPT-11509 Level 4 New Patient 19:44:00 TALENT DEVELOPMENT DIRECTOR David Marcelino MD [facility] Procedures Code Procedure Name Date Entry Date Standard Description CPT-05408 Abdomen, 1 view 16:35:07 TALENT DEVELOPMENT DIRECTOR CPT-53371 Interstim trial 08:36:54 CDT CPT-75553 Interstim trial 21:00:45 CDT CPT-01379 Postop F/U Visit 20:37:06 TALENT DEVELOPMENT DIRECTOR CPT-95796 Postop F/U Visit 15:28:22 TALENT DEVELOPMENT DIRECTOR
--- OUTSIDE RECORDS SUMMARY | 2018-05-29 09:17 | XMS REPORT | Clinical Summary ---
Author Author Admin, MONICA Organization [facility] Address Unknown Phone Unavailable Allergies, Adverse [...] as needed for muscle spasm/pain CYCLOBENZAPRINE HCL 54241906001 No Longer Active David Marcelino MD Active VITAMIN C PLUS 1000 MG ORAL TABLET 3 tabs by mouth three times daily BIOFLAVONOID PRODUCTS 53262830628 Active David Marcelino MD Active TOPROL XL 50 MG ORAL TABLET EXTENDED RELEASE 24 HOUR 1 tab by mouth daily METOPROLOL SUCCINATE 24065456873 Active David Marcelino MD Active LEVOTHYROXINE SODIUM 150 MCG ORAL TABLET 1 pill by mouth daily, for thyroid LEVOTHYROXINE SODIUM 42706196873 Active David Marcelino MD Active REQUIP 5 MG ORAL TABLET 2 tabs by mouth daily ROPINIROLE HCL 00649358003 Active David Marcelino MD Active LASIX 40 MG ORAL TABLET 1 tablet by mouth daily FUROSEMIDE 00519264017 No Longer Active David Marcelino MD Active KLOR-CON M10 10 MEQ ORAL TABLET EXTENDED RELEASE 1 tablet by mouth daily POTASSIUM CHLORIDE GI CR 59999601091 No Longer Active David Marcelino MD Active KLONOPIN 1 MG ORAL TABLET 1 tab by mouth daily CLONAZEPAM 84251686936 No Longer Active David Marcelino MD Active AMITRIPTYLINE HCL 25 MG ORAL TABLET 1 tab by mouth daily at bedtime 09/21 AMITRIPTYLINE HCL 22089922669 No Longer Active David Marcelino MD Active AMBIEN 5 MG ORAL TABLET 1 po qHS PRN Insomnia ZOLPIDEM TARTRATE 70886482630 No Longer Active David Marcelino MD Active VESICARE 10 MG ORAL TABLET 1 pill by mouth daily for overactive bladder 06/05 SOLIFENACIN SUCCINATE 76578997583 No Longer Active David Marcelino MD Active EQ FIBER THERAPY 0.52 GM ORAL CAPSULE 1 cap by mouth three times daily PSYLLIUM 28733096523 Active David Marcelino MD Active FISH OIL CONCENTRATE 1000 MG ORAL CAPSULE 3 caps by mouth daily OMEGA- 3 FATTY ACIDS 23109479812 Active David Marcelino MD Active VITAMIN D3 63140 UNIT ORAL TABLET 1 cap by mouth monthly CHOLECALCIFEROL 74887769937 Active David Marcelino MD Active SYMBICORT 160-4.5 MCG/ACT INHALATION AEROSOL 2 puff BID BUDESONIDE- FORMOTEROL FUMARATE 46211233967 Active David Marcelino MD Active PROVENTIL HFA 108 (90 Base) MCG/ACT INHALATION AEROSOL SOLUTION 2 inhaltions prn ALBUTEROL SULFATE 36568614801 Active David Marcelino MD Active PROTONIX 40 MG ORAL TABLET DELAYED RELEASE 1 po q a.m. PANTOPRAZOLE SODIUM 18549197875 Active David Marcelino MD Active NORVASC 10 MG ORAL TABLET 1 tablet by mouth daily AMLODIPINE BESYLATE 99158132147 Active David Marcelino MD Active LYRICA 150 MG ORAL CAPSULE 1 tab by mouth 3 times daily PREGABALIN 63262045525 Active David Marcelino MD Active LOSARTAN POTASSIUM 100 MG ORAL TABLET 1 pill by mouth daily, for blood pressure LOSARTAN POTASSIUM 84793234309 Active David Marcelino MD Active VERAMYST 27.5 MCG/SPRAY NASAL SUSPENSION 1 spray in nostril as needed FLUTICASONE FUROATE 55389449077 Active David Marcelino MD Active FERROUS SULFATE 325 (65 Fe) MG ORAL TABLET 1 tablet by mouth daily FERROUS SULFATE 34378282232 Active David Marcelino MD Active CYMBALTA 60 MG ORAL CAPSULE DELAYED RELEASE PARTICLES 1 cap by mouth daily DULOXETINE HCL 65084621587 Active David Marcelino MD Active CETIRIZINE HCL 10 MG ORAL TABLET 1 po qd PRN Allergies CETIRIZINE HCL 30857742299 Active David Marcelino MD Active VESICARE 10 MG ORAL TABLET 1 pill by mouth daily for overactive bladder 06/05 VESICARE 10 MG ORAL TABLET SOLIFENACIN SUCCINATE Inactive AMBIEN 5 MG ORAL TABLET 1 po qHS PRN Insomnia AMBIEN 5 MG ORAL TABLET 230803 ZOLPIDEM TARTRATE Inactive AMITRIPTYLINE HCL 25 MG ORAL TABLET 1 tab by mouth daily at bedtime 09/21 AMITRIPTYLINE HCL 25 MG ORAL TABLET 650825 AMITRIPTYLINE HCL Inactive KLONOPIN 1 MG ORAL TABLET 1 tab by mouth daily KLONOPIN 1 MG ORAL TABLET 774514 CLONAZEPAM Inactive KLOR-CON M10 10 MEQ ORAL TABLET EXTENDED RELEASE 1 tablet by mouth daily KLOR-CON M10 10 MEQ ORAL TABLET EXTENDED RELEASE 5207020 POTASSIUM CHLORIDE GI CR Inactive LASIX 40 MG ORAL TABLET 1 tablet by mouth daily LASIX 40 MG ORAL TABLET 152634 FUROSEMIDE Inactive CYCLOBENZAPRINE HCL 10 MG ORAL TABLET 1 tablet by mouth three times daily as needed for muscle spasm/pain CYCLOBENZAPRINE HCL 10 MG ORAL TABLET 145994 CYCLOBENZAPRINE HCL Inactive Immunizations Vaccine Administration Date [...] negative Encounters Code Encounter Date Provider Facility CPT-06012 Level 3 Est. Patient 16:23:28 BEBE Bardales [facility] CPT-90580 Level 3 Est. Patient 21:01:28 CASSANDRA Marcelino MD [facility] CPT-86018 Level 3 Est. Patient 21:05:34 SUPERINTENDENT David aMrcelino MD [facility] CPT-46445 Level 4 New Patient 19:44:00 SUPERINTENDENT David Marcelino MD [facility] Procedures Code Procedure Name Date Entry Date Standard Description CPT-02860 Abdomen, 1 view 16:35:07 SUPERINTENDENT CPT-68264 Interstim trial 08:36:54 CDT CPT-53666 Interstim trial 21:00:45 CDT CPT-32167 Postop F/U Visit 20:37:06 SUPERINTENDENT CPT-35708 Postop F/U Visit 15:28:22 SUPERINTENDENT
--- OUTSIDE RECORDS SUMMARY | 2018-05-29 09:18 | XMS REPORT | Clinical Summary ---
Author Author Admin, MONICA Organization [facility] Address Unknown Phone Unavailable Allergies, Adverse Reactions, [...] as needed for muscle spasm/pain CYCLOBENZAPRINE HCL 03406300545 No Longer Active David Marcelino MD Active VITAMIN C PLUS 1000 MG ORAL TABLET 3 tabs by mouth three times daily BIOFLAVONOID PRODUCTS 44361978743 Active David Marcelino MD Active TOPROL XL 50 MG ORAL TABLET EXTENDED RELEASE 24 HOUR 1 tab by mouth daily METOPROLOL SUCCINATE 40366641847 Active David Marcelino MD Active LEVOTHYROXINE SODIUM 150 MCG ORAL TABLET 1 pill by mouth daily, for thyroid LEVOTHYROXINE SODIUM 82389367367 Active David Marcelino MD Active REQUIP 5 MG ORAL TABLET 2 tabs by mouth daily ROPINIROLE HCL 24230186927 Active David Marcelino MD Active LASIX 40 MG ORAL TABLET 1 tablet by mouth daily FUROSEMIDE 81170784162 No Longer Active David Marcelino MD Active KLOR-CON M10 10 MEQ ORAL TABLET EXTENDED RELEASE 1 tablet by mouth daily POTASSIUM CHLORIDE GI CR 04399168163 No Longer Active David Marcelino MD Active KLONOPIN 1 MG ORAL TABLET 1 tab by mouth daily CLONAZEPAM 79870091863 No Longer Active David Marcelino MD Active AMITRIPTYLINE HCL 25 MG ORAL TABLET 1 tab by mouth daily at bedtime 09/21 AMITRIPTYLINE HCL 96845581284 No Longer Active David Marcelino MD Active AMBIEN 5 MG ORAL TABLET 1 po qHS PRN Insomnia ZOLPIDEM TARTRATE 86091851972 No Longer Active David Marcelino MD Active VESICARE 10 MG ORAL TABLET 1 pill by mouth daily for overactive bladder 06/05 SOLIFENACIN SUCCINATE 81428394283 No Longer Active David Marcelino MD Active EQ FIBER THERAPY 0.52 GM ORAL CAPSULE 1 cap by mouth three times daily PSYLLIUM 02732388064 Active David Marcelino MD Active FISH OIL CONCENTRATE 1000 MG ORAL CAPSULE 3 caps by mouth daily OMEGA- 3 FATTY ACIDS 74328902484 Active David Marcelino MD Active VITAMIN D3 28843 UNIT ORAL TABLET 1 cap by mouth monthly CHOLECALCIFEROL 80973210604 Active David Marcelino MD Active SYMBICORT 160-4.5 MCG/ACT INHALATION AEROSOL 2 puff BID BUDESONIDE- FORMOTEROL FUMARATE 80668874689 Active David Marcelino MD Active PROVENTIL HFA 108 (90 Base) MCG/ACT INHALATION AEROSOL SOLUTION 2 inhaltions prn ALBUTEROL SULFATE 77671434233 Active David Marcelino MD Active PROTONIX 40 MG ORAL TABLET DELAYED RELEASE 1 po q a.m. PANTOPRAZOLE SODIUM 77551447839 Active David Marcelino MD Active NORVASC 10 MG ORAL TABLET 1 tablet by mouth daily AMLODIPINE BESYLATE 52650738745 Active David Marcelino MD Active LYRICA 150 MG ORAL CAPSULE 1 tab by mouth 3 times daily PREGABALIN 67940006593 Active David Marcelino MD Active LOSARTAN POTASSIUM 100 MG ORAL TABLET 1 pill by mouth daily, for blood pressure LOSARTAN POTASSIUM 43056528382 Active David Marcelino MD Active VERAMYST 27.5 MCG/SPRAY NASAL SUSPENSION 1 spray in nostril as needed FLUTICASONE FUROATE 33712119864 Active David Marcelino MD Active FERROUS SULFATE 325 (65 Fe) MG ORAL TABLET 1 tablet by mouth daily FERROUS SULFATE 95155828511 Active David Marcelino MD Active CYMBALTA 60 MG ORAL CAPSULE DELAYED RELEASE PARTICLES 1 cap by mouth daily DULOXETINE HCL 02914901678 Active David Marceilno MD Active CETIRIZINE HCL 10 MG ORAL TABLET 1 po qd PRN Allergies CETIRIZINE HCL 20680967670 Active David Marcelino MD Active VESICARE 10 MG ORAL TABLET 1 pill by mouth daily for overactive bladder 06/05 VESICARE 10 MG ORAL TABLET SOLIFENACIN SUCCINATE Inactive AMBIEN 5 MG ORAL TABLET 1 po qHS PRN Insomnia AMBIEN 5 MG ORAL TABLET 808390 ZOLPIDEM TARTRATE Inactive AMITRIPTYLINE HCL 25 MG ORAL TABLET 1 tab by mouth daily at bedtime 09/21 AMITRIPTYLINE HCL 25 MG ORAL TABLET 862763 AMITRIPTYLINE HCL Inactive KLONOPIN 1 MG ORAL TABLET 1 tab by mouth daily KLONOPIN 1 MG ORAL TABLET 451435 CLONAZEPAM Inactive KLOR-CON M10 10 MEQ ORAL TABLET EXTENDED RELEASE 1 tablet by mouth daily KLOR-CON M10 10 MEQ ORAL TABLET EXTENDED RELEASE 8925094 POTASSIUM CHLORIDE GI CR Inactive LASIX 40 MG ORAL TABLET 1 tablet by mouth daily LASIX 40 MG ORAL TABLET 489567 FUROSEMIDE Inactive CYCLOBENZAPRINE HCL 10 MG ORAL TABLET 1 tablet by mouth three times daily as needed for muscle spasm/pain CYCLOBENZAPRINE HCL 10 MG ORAL TABLET 943910 CYCLOBENZAPRINE HCL Inactive Vital Signs Date Name Value Unit Range Description blood pressure, diastolic 66 mm[Hg] BP montalvo [...] temperature weight E&M 245 [lb_av] Weight Measured Encounters Code Encounter Date Provider Facility CPT-26990 Level 3 Est. Patient 16:23:28 TUBE HEATER Jeniffer [facility] CPT-18619 Level 3 Est. Patient 21:01:28 CDT David Marcelino MD [facility] CPT-28356 Level 3 Est. Patient 21:05:34 TUBE HEATER David Marcelino MD [facility] CPT-65202 Level 4 New Patient 19:44:00 TUBE HEATER David Marcelino MD [facility] Procedures Code Procedure Name Date Entry Date Standard Description CPT-66254 Abdomen, 1 view 16:35:07 TUBE HEATER CPT-76050 Interstim trial 08:36:54 CDT CPT-85090 Interstim trial 21:00:45 CDT CPT-87465 Postop F/U Visit 20:37:06 TUBE HEATER CPT-03810 Postop F/U Visit 15:28:22 TUBE HEATER
--- OUTSIDE RECORDS SUMMARY | 2018-05-29 09:18 | XMS REPORT | Clinical Summary ---
Author Author Admin, MONICA Organization [facility] Address Unknown Phone Unavailable Allergies, Adverse [...] as needed for muscle spasm/pain CYCLOBENZAPRINE HCL 75400235630 No Longer Active David Marcelino MD Active VITAMIN C PLUS 1000 MG ORAL TABLET 3 tabs by mouth three times daily BIOFLAVONOID PRODUCTS 87096842686 Active David Marcelino MD Active TOPROL XL 50 MG ORAL TABLET EXTENDED RELEASE 24 HOUR 1 tab by mouth daily METOPROLOL SUCCINATE 84607692839 Active David Marcelino MD Active LEVOTHYROXINE SODIUM 150 MCG ORAL TABLET 1 pill by mouth daily, for thyroid LEVOTHYROXINE SODIUM 04052178744 Active David Marcelino MD Active REQUIP 5 MG ORAL TABLET 2 tabs by mouth daily ROPINIROLE HCL 95969351856 Active David Marcelino MD Active LASIX 40 MG ORAL TABLET 1 tablet by mouth daily FUROSEMIDE 64748385997 No Longer Active David Marcelino MD Active KLOR-CON M10 10 MEQ ORAL TABLET EXTENDED RELEASE 1 tablet by mouth daily POTASSIUM CHLORIDE GI CR 30075807326 No Longer Active David Marcelino MD Active KLONOPIN 1 MG ORAL TABLET 1 tab by mouth daily CLONAZEPAM 28895513007 No Longer Active David Marcelino MD Active AMITRIPTYLINE HCL 25 MG ORAL TABLET 1 tab by mouth daily at bedtime 09/21 AMITRIPTYLINE HCL 75694962362 No Longer Active David Marcelino MD Active AMBIEN 5 MG ORAL TABLET 1 po qHS PRN Insomnia ZOLPIDEM TARTRATE 70096294836 No Longer Active David Marcelino MD Active VESICARE 10 MG ORAL TABLET 1 pill by mouth daily for overactive bladder 06/05 SOLIFENACIN SUCCINATE 27184826998 No Longer Active David Marcelino MD Active EQ FIBER THERAPY 0.52 GM ORAL CAPSULE 1 cap by mouth three times daily PSYLLIUM 64418288330 Active David Marcelino MD Active FISH OIL CONCENTRATE 1000 MG ORAL CAPSULE 3 caps by mouth daily OMEGA- 3 FATTY ACIDS 40411920813 Active David Marcelino MD Active VITAMIN D3 02551 UNIT ORAL TABLET 1 cap by mouth monthly CHOLECALCIFEROL 36894162991 Active David Marcelino MD Active SYMBICORT 160-4.5 MCG/ACT INHALATION AEROSOL 2 puff BID BUDESONIDE- FORMOTEROL FUMARATE 87546434868 Active David Marcelino MD Active PROVENTIL HFA 108 (90 Base) MCG/ACT INHALATION AEROSOL SOLUTION 2 inhaltions prn ALBUTEROL SULFATE 12459504700 Active David Marcelino MD Active PROTONIX 40 MG ORAL TABLET DELAYED RELEASE 1 po q a.m. PANTOPRAZOLE SODIUM 35699101871 Active David Marcelino MD Active NORVASC 10 MG ORAL TABLET 1 tablet by mouth daily AMLODIPINE BESYLATE 50007376684 Active David Marcelino MD Active LYRICA 150 MG ORAL CAPSULE 1 tab by mouth 3 times daily PREGABALIN 59842895637 Active David Marcelino MD Active LOSARTAN POTASSIUM 100 MG ORAL TABLET 1 pill by mouth daily, for blood pressure LOSARTAN POTASSIUM 47219118000 Active David Marcelino MD Active VERAMYST 27.5 MCG/SPRAY NASAL SUSPENSION 1 spray in nostril as needed FLUTICASONE FUROATE 41533984404 Active David Marcelino MD Active FERROUS SULFATE 325 (65 Fe) MG ORAL TABLET 1 tablet by mouth daily FERROUS SULFATE 18719432068 Active David Marcelino MD Active CYMBALTA 60 MG ORAL CAPSULE DELAYED RELEASE PARTICLES 1 cap by mouth daily DULOXETINE HCL 18872357691 Active David Marcelino MD Active CETIRIZINE HCL 10 MG ORAL TABLET 1 po qd PRN Allergies CETIRIZINE HCL 64077710498 Active David Marcelino MD Active VESICARE 10 MG ORAL TABLET 1 pill by mouth daily for overactive bladder 06/05 VESICARE 10 MG ORAL TABLET SOLIFENACIN SUCCINATE Inactive AMBIEN 5 MG ORAL TABLET 1 po qHS PRN Insomnia AMBIEN 5 MG ORAL TABLET 296269 ZOLPIDEM TARTRATE Inactive AMITRIPTYLINE HCL 25 MG ORAL TABLET 1 tab by mouth daily at bedtime 09/21 AMITRIPTYLINE HCL 25 MG ORAL TABLET 815216 AMITRIPTYLINE HCL Inactive KLONOPIN 1 MG ORAL TABLET 1 tab by mouth daily KLONOPIN 1 MG ORAL TABLET 208763 CLONAZEPAM Inactive KLOR-CON M10 10 MEQ ORAL TABLET EXTENDED RELEASE 1 tablet by mouth daily KLOR-CON M10 10 MEQ ORAL TABLET EXTENDED RELEASE 1758341 POTASSIUM CHLORIDE GI CR Inactive LASIX 40 MG ORAL TABLET 1 tablet by mouth daily LASIX 40 MG ORAL TABLET 890867 FUROSEMIDE Inactive CYCLOBENZAPRINE HCL 10 MG ORAL TABLET 1 tablet by mouth three times daily as needed for muscle spasm/pain CYCLOBENZAPRINE HCL 10 MG ORAL TABLET 585296 CYCLOBENZAPRINE HCL Inactive Immunizations Vaccine Administration Date [...] negative Encounters Code Encounter Date Provider Facility CPT-06040 Level 3 Est. Patient 16:23:28 BEBE Bardales [facility] CPT-31679 Level 3 Est. Patient 21:01:28 CASSANDRA Marcelino MD [facility] [place] CPT-98542 Level 3 Est. Patient 21:05:34 HOSPICE VOLUNTEER COORDINATOR David Marcelino MD [facility] CPT-64674 Level 4 New Patient 19:44:00 HOSPICE VOLUNTEER COORDINATOR David Marcelino MD [facility] Procedures Code Procedure Name Date Entry Date Standard Description CPT-01421 Abdomen, 1 view 16:35:07 HOSPICE VOLUNTEER COORDINATOR CPT-29490 Interstim trial 08:36:54 CDT CPT-93301 Interstim trial 21:00:45 CDT CPT-08009 Postop F/U Visit 20:37:06 HOSPICE VOLUNTEER COORDINATOR CPT-31288 Postop F/U Visit 15:28:22 HOSPICE VOLUNTEER COORDINATOR
--- OUTSIDE RECORDS SUMMARY | 2018-05-29 09:18 | XMS REPORT | Clinical Summary ---
Author Author Admin, MONICA Organization [facility] Address Unknown Phone Unavailable Allergies, [...] as needed for muscle spasm/pain CYCLOBENZAPRINE HCL 37553414080 No Longer Active David Marcelino MD Active VITAMIN C PLUS 1000 MG ORAL TABLET 3 tabs by mouth three times daily BIOFLAVONOID PRODUCTS 29616344062 Active David Marcelino MD Active TOPROL XL 50 MG ORAL TABLET EXTENDED RELEASE 24 HOUR 1 tab by mouth daily METOPROLOL SUCCINATE 11179784101 Active David Marcelino MD Active LEVOTHYROXINE SODIUM 150 MCG ORAL TABLET 1 pill by mouth daily, for thyroid LEVOTHYROXINE SODIUM 00737465200 Active David Marcelino MD Active REQUIP 5 MG ORAL TABLET 2 tabs by mouth daily ROPINIROLE HCL 54225020829 Active David Marcelino MD Active LASIX 40 MG ORAL TABLET 1 tablet by mouth daily FUROSEMIDE 16036955223 No Longer Active David Marcelino MD Active KLOR-CON M10 10 MEQ ORAL TABLET EXTENDED RELEASE 1 tablet by mouth daily POTASSIUM CHLORIDE GI CR 25208579102 No Longer Active David Marcelino MD Active KLONOPIN 1 MG ORAL TABLET 1 tab by mouth daily CLONAZEPAM 50861748674 No Longer Active David Marcelino MD Active AMITRIPTYLINE HCL 25 MG ORAL TABLET 1 tab by mouth daily at bedtime 09/21 AMITRIPTYLINE HCL 00005481767 No Longer Active David Marcelino MD Active AMBIEN 5 MG ORAL TABLET 1 po qHS PRN Insomnia ZOLPIDEM TARTRATE 78000606384 No Longer Active David Marcelino MD Active VESICARE 10 MG ORAL TABLET 1 pill by mouth daily for overactive bladder 06/05 SOLIFENACIN SUCCINATE 69659609977 No Longer Active David Marcelino MD Active EQ FIBER THERAPY 0.52 GM ORAL CAPSULE 1 cap by mouth three times daily PSYLLIUM 02620607365 Active David Marcelino MD Active FISH OIL CONCENTRATE 1000 MG ORAL CAPSULE 3 caps by mouth daily OMEGA- 3 FATTY ACIDS 04635601107 Active David Marcelino MD Active VITAMIN D3 71627 UNIT ORAL TABLET 1 cap by mouth monthly CHOLECALCIFEROL 10827870490 Active David Marcelino MD Active SYMBICORT 160-4.5 MCG/ACT INHALATION AEROSOL 2 puff BID BUDESONIDE- FORMOTEROL FUMARATE 93433271273 Active David Marcelino MD Active PROVENTIL HFA 108 (90 Base) MCG/ACT INHALATION AEROSOL SOLUTION 2 inhaltions prn ALBUTEROL SULFATE 07963563410 Active David Marcelino MD Active PROTONIX 40 MG ORAL TABLET DELAYED RELEASE 1 po q a.m. PANTOPRAZOLE SODIUM 04498557877 Active David Marcelino MD Active NORVASC 10 MG ORAL TABLET 1 tablet by mouth daily AMLODIPINE BESYLATE 90701112718 Active Davdi Marcelino MD Active LYRICA 150 MG ORAL CAPSULE 1 tab by mouth 3 times daily PREGABALIN 65229237715 Active David Marcelino MD Active LOSARTAN POTASSIUM 100 MG ORAL TABLET 1 pill by mouth daily, for blood pressure LOSARTAN POTASSIUM 45622775909 Active David Marcelino MD Active VERAMYST 27.5 MCG/SPRAY NASAL SUSPENSION 1 spray in nostril as needed FLUTICASONE FUROATE 63224828232 Active David Marcelino MD Active FERROUS SULFATE 325 (65 Fe) MG ORAL TABLET 1 tablet by mouth daily FERROUS SULFATE 01227377965 Active David Marcelino MD Active CYMBALTA 60 MG ORAL CAPSULE DELAYED RELEASE PARTICLES 1 cap by mouth daily DULOXETINE HCL 78123603512 Active David Marcelino MD Active CETIRIZINE HCL 10 MG ORAL TABLET 1 po qd PRN Allergies CETIRIZINE HCL 17925734393 Active J Jarrod Marcelino MD Active VESICARE 10 MG ORAL TABLET 1 pill by mouth daily for overactive bladder 06/05 VESICARE 10 MG ORAL TABLET SOLIFENACIN SUCCINATE Inactive AMBIEN 5 MG ORAL TABLET 1 po qHS PRN Insomnia AMBIEN 5 MG ORAL TABLET 989448 ZOLPIDEM TARTRATE Inactive AMITRIPTYLINE HCL 25 MG ORAL TABLET 1 tab by mouth daily at bedtime 09/21 AMITRIPTYLINE HCL 25 MG ORAL TABLET 940876 AMITRIPTYLINE HCL Inactive KLONOPIN 1 MG ORAL TABLET 1 tab by mouth daily KLONOPIN 1 MG ORAL TABLET 711218 CLONAZEPAM Inactive KLOR-CON M10 10 MEQ ORAL TABLET EXTENDED RELEASE 1 tablet by mouth daily KLOR-CON M10 10 MEQ ORAL TABLET EXTENDED RELEASE 2586679 POTASSIUM CHLORIDE GI CR Inactive LASIX 40 MG ORAL TABLET 1 tablet by mouth daily LASIX 40 MG ORAL TABLET 868011 FUROSEMIDE Inactive CYCLOBENZAPRINE HCL 10 MG ORAL TABLET 1 tablet by mouth three times daily as needed for muscle spasm/pain CYCLOBENZAPRINE HCL 10 MG ORAL TABLET 944703 CYCLOBENZAPRINE HCL Inactive Vital Signs Date Name [...] Measured Encounters Code Encounter Date Provider Facility CPT-25440 Level 3 Est. Patient 21:01:28 CDT David Marcelino MD [facility] [place] CPT-08026 Level 3 Est. 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
--- OUTSIDE RECORDS SUMMARY | 2018-05-29 09:18 | XMS REPORT | Clinical Summary ---
Author Author Admin, E Organization [facility] Address Unknown Phone Unavailable Allergies, Adverse Reactions, [...] as needed for muscle spasm/pain CYCLOBENZAPRINE HCL 02901620984 No Longer Active David Marcelino MD Active VITAMIN C PLUS 1000 MG ORAL TABLET 3 tabs by mouth three times daily BIOFLAVONOID PRODUCTS 94858150577 Active David Marcelino MD Active TOPROL XL 50 MG ORAL TABLET EXTENDED RELEASE 24 HOUR 1 tab by mouth daily METOPROLOL SUCCINATE 12067091552 Active David Marcelino MD Active LEVOTHYROXINE SODIUM 150 MCG ORAL TABLET 1 pill by mouth daily, for thyroid LEVOTHYROXINE SODIUM 87358600813 Active David Marcelino MD Active REQUIP 5 MG ORAL TABLET 2 tabs by mouth daily ROPINIROLE HCL 48643277884 Active David Marcelino MD Active LASIX 40 MG ORAL TABLET 1 tablet by mouth daily FUROSEMIDE 12268373285 No Longer Active David Marcelino MD Active KLOR-CON M10 10 MEQ ORAL TABLET EXTENDED RELEASE 1 tablet by mouth daily POTASSIUM CHLORIDE GI CR 47990260604 No Longer Active David Marcelino MD Active KLONOPIN 1 MG ORAL TABLET 1 tab by mouth daily CLONAZEPAM 70439320819 No Longer Active David Marcelino MD Active AMITRIPTYLINE HCL 25 MG ORAL TABLET 1 tab by mouth daily at bedtime 09/21 AMITRIPTYLINE HCL 46532366191 No Longer Active David Marcelino MD Active AMBIEN 5 MG ORAL TABLET 1 po qHS PRN Insomnia ZOLPIDEM TARTRATE 28534540412 No Longer Active David Marcelino MD Active VESICARE 10 MG ORAL TABLET 1 pill by mouth daily for overactive bladder 06/05 SOLIFENACIN SUCCINATE 35703623741 No Longer Active David Marcelino MD Active EQ FIBER THERAPY 0.52 GM ORAL CAPSULE 1 cap by mouth three times daily PSYLLIUM 23866062377 Active David Marcelino MD Active FISH OIL CONCENTRATE 1000 MG ORAL CAPSULE 3 caps by mouth daily OMEGA- 3 FATTY ACIDS 65425623506 Active David Marcelino MD Active VITAMIN D3 07276 UNIT ORAL TABLET 1 cap by mouth monthly CHOLECALCIFEROL 67260374752 Active David Marcelino MD Active SYMBICORT 160-4.5 MCG/ACT INHALATION AEROSOL 2 puff BID BUDESONIDE- FORMOTEROL FUMARATE 80793448247 Active David Marcelino MD Active PROVENTIL HFA 108 (90 Base) MCG/ACT INHALATION AEROSOL SOLUTION 2 inhaltions prn ALBUTEROL SULFATE 62056512530 Active David Marcelino MD Active PROTONIX 40 MG ORAL TABLET DELAYED RELEASE 1 po q a.m. PANTOPRAZOLE SODIUM 07016768012 Active David Marcelino MD Active NORVASC 10 MG ORAL TABLET 1 tablet by mouth daily AMLODIPINE BESYLATE 89996588920 Active David Marcelino MD Active LYRICA 150 MG ORAL CAPSULE 1 tab by mouth 3 times daily PREGABALIN 43548507526 Active David Marcelino MD Active LOSARTAN POTASSIUM 100 MG ORAL TABLET 1 pill by mouth daily, for blood pressure LOSARTAN POTASSIUM 43776440897 Active David Marcelino MD Active VERAMYST 27.5 MCG/SPRAY NASAL SUSPENSION 1 spray in nostril as needed FLUTICASONE FUROATE 53995548964 Active David Marcelino MD Active FERROUS SULFATE 325 (65 Fe) MG ORAL TABLET 1 tablet by mouth daily FERROUS SULFATE 70493148229 Active David Marcelino MD Active CYMBALTA 60 MG ORAL CAPSULE DELAYED RELEASE PARTICLES 1 cap by mouth daily DULOXETINE HCL 47669311101 Active David Marcelino MD Active CETIRIZINE HCL 10 MG ORAL TABLET 1 po qd PRN Allergies CETIRIZINE HCL 79326341655 Active David Marcelino MD Active VESICARE 10 MG ORAL TABLET 1 pill by mouth daily for overactive bladder 06/05 VESICARE 10 MG ORAL TABLET SOLIFENACIN SUCCINATE Inactive AMBIEN 5 MG ORAL TABLET 1 po qHS PRN Insomnia AMBIEN 5 MG ORAL TABLET 853894 ZOLPIDEM TARTRATE Inactive AMITRIPTYLINE HCL 25 MG ORAL TABLET 1 tab by mouth daily at bedtime 09/21 AMITRIPTYLINE HCL 25 MG ORAL TABLET 008008 AMITRIPTYLINE HCL Inactive KLONOPIN 1 MG ORAL TABLET 1 tab by mouth daily KLONOPIN 1 MG ORAL TABLET 896989 CLONAZEPAM Inactive KLOR-CON M10 10 MEQ ORAL TABLET EXTENDED RELEASE 1 tablet by mouth daily KLOR-CON M10 10 MEQ ORAL TABLET EXTENDED RELEASE 6469183 POTASSIUM CHLORIDE GI CR Inactive LASIX 40 MG ORAL TABLET 1 tablet by mouth daily LASIX 40 MG ORAL TABLET 332077 FUROSEMIDE Inactive CYCLOBENZAPRINE HCL 10 MG ORAL TABLET 1 tablet by mouth three times daily as needed for muscle spasm/pain CYCLOBENZAPRINE HCL 10 MG ORAL TABLET 856782 CYCLOBENZAPRINE HCL Inactive Vital Signs Date Name [...] Measured Encounters Code Encounter Date Provider Facility CPT-50998 Level 3 Est. 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 Patient 21:01:28 CDT David Marcelino MD [facility] CPT-21290 Level 3 Est. 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
--- OUTSIDE RECORDS SUMMARY | 2018-05-29 09:18 | XMS REPORT | Clinical Summary ---
Author Author Admin, MONICA Organization [facility] Address Unknown Phone Unavailable Allergies, Adverse Reactions, [...] as needed for muscle spasm/pain CYCLOBENZAPRINE HCL 78959070052 No Longer Active David Marcelino MD Active VITAMIN C PLUS 1000 MG ORAL TABLET 3 tabs by mouth three times daily BIOFLAVONOID PRODUCTS 77862254666 Active David Marcelino MD Active TOPROL XL 50 MG ORAL TABLET EXTENDED RELEASE 24 HOUR 1 tab by mouth daily METOPROLOL SUCCINATE 44632937402 Active David Marcelino MD Active LEVOTHYROXINE SODIUM 150 MCG ORAL TABLET 1 pill by mouth daily, for thyroid LEVOTHYROXINE SODIUM 96050540505 Active David Marcelino MD Active REQUIP 5 MG ORAL TABLET 2 tabs by mouth daily ROPINIROLE HCL 10395736480 Active David Marcelino MD Active LASIX 40 MG ORAL TABLET 1 tablet by mouth daily FUROSEMIDE 98695813468 No Longer Active David Marcelino MD Active KLOR-CON M10 10 MEQ ORAL TABLET EXTENDED RELEASE 1 tablet by mouth daily POTASSIUM CHLORIDE GI CR 76470246581 No Longer Active David Marcelino MD Active KLONOPIN 1 MG ORAL TABLET 1 tab by mouth daily CLONAZEPAM 86024947063 No Longer Active David Marcelino MD Active AMITRIPTYLINE HCL 25 MG ORAL TABLET 1 tab by mouth daily at bedtime 09/21 AMITRIPTYLINE HCL 42046207482 No Longer Active David Marcelino MD Active AMBIEN 5 MG ORAL TABLET 1 po qHS PRN Insomnia ZOLPIDEM TARTRATE 94858842255 No Longer Active David Marcelino MD Active VESICARE 10 MG ORAL TABLET 1 pill by mouth daily for overactive bladder 06/05 SOLIFENACIN SUCCINATE 09050353802 No Longer Active David Marcelino MD Active EQ FIBER THERAPY 0.52 GM ORAL CAPSULE 1 cap by mouth three times daily PSYLLIUM 20641009833 Active David Marcelino MD Active FISH OIL CONCENTRATE 1000 MG ORAL CAPSULE 3 caps by mouth daily OMEGA- 3 FATTY ACIDS 53715514494 Active David Marcelino MD Active VITAMIN D3 08861 UNIT ORAL TABLET 1 cap by mouth monthly CHOLECALCIFEROL 14996893993 Active David Marcelino MD Active SYMBICORT 160-4.5 MCG/ACT INHALATION AEROSOL 2 puff BID BUDESONIDE- FORMOTEROL FUMARATE 46431294803 Active David Marcelino MD Active PROVENTIL HFA 108 (90 Base) MCG/ACT INHALATION AEROSOL SOLUTION 2 inhaltions prn ALBUTEROL SULFATE 11430001482 Active David Marcelino MD Active PROTONIX 40 MG ORAL TABLET DELAYED RELEASE 1 po q a.m. PANTOPRAZOLE SODIUM 83855546780 Active David Marcelino MD Active NORVASC 10 MG ORAL TABLET 1 tablet by mouth daily AMLODIPINE BESYLATE 99463258345 Active David Marcelino MD Active LYRICA 150 MG ORAL CAPSULE 1 tab by mouth 3 times daily PREGABALIN 87868334068 Active David Marcelino MD Active LOSARTAN POTASSIUM 100 MG ORAL TABLET 1 pill by mouth daily, for blood pressure LOSARTAN POTASSIUM 37131162009 Active David Marcelino MD Active VERAMYST 27.5 MCG/SPRAY NASAL SUSPENSION 1 spray in nostril as needed FLUTICASONE FUROATE 45239412793 Active David Marcelino MD Active FERROUS SULFATE 325 (65 Fe) MG ORAL TABLET 1 tablet by mouth daily FERROUS SULFATE 24774437187 Active David Marcelino MD Active CYMBALTA 60 MG ORAL CAPSULE DELAYED RELEASE PARTICLES 1 cap by mouth daily DULOXETINE HCL 91352119097 Active David Marcelino MD Active CETIRIZINE HCL 10 MG ORAL TABLET 1 po qd PRN Allergies CETIRIZINE HCL 80841556006 Active David Marcelino MD Active VESICARE 10 MG ORAL TABLET 1 pill by mouth daily for overactive bladder 06/05 VESICARE 10 MG ORAL TABLET SOLIFENACIN SUCCINATE Inactive AMBIEN 5 MG ORAL TABLET 1 po qHS PRN Insomnia AMBIEN 5 MG ORAL TABLET 376846 ZOLPIDEM TARTRATE Inactive AMITRIPTYLINE HCL 25 MG ORAL TABLET 1 tab by mouth daily at bedtime 09/21 AMITRIPTYLINE HCL 25 MG ORAL TABLET 145838 AMITRIPTYLINE HCL Inactive KLONOPIN 1 MG ORAL TABLET 1 tab by mouth daily KLONOPIN 1 MG ORAL TABLET 915199 CLONAZEPAM Inactive KLOR-CON M10 10 MEQ ORAL TABLET EXTENDED RELEASE 1 tablet by mouth daily KLOR-CON M10 10 MEQ ORAL TABLET EXTENDED RELEASE 1623937 POTASSIUM CHLORIDE GI CR Inactive LASIX 40 MG ORAL TABLET 1 tablet by mouth daily LASIX 40 MG ORAL TABLET 049800 FUROSEMIDE Inactive CYCLOBENZAPRINE HCL 10 MG ORAL TABLET 1 tablet by mouth three times daily as needed for muscle spasm/pain CYCLOBENZAPRINE HCL 10 MG ORAL TABLET 772824 CYCLOBENZAPRINE HCL Inactive Vital Signs Date Name [...] Measured Encounters Code Encounter Date Provider Facility CPT-37656 Level 3 Est. Patient 16:23:[address] Jeniffer [facility] CPT-46111 Level 3 Est. Patient 21:01:28 CDT David Marcelino MD [facility] CPT-62937 Level 3 Est. Patient 21:05:[address] David Marcelino MD [facility] CPT-05351 Level 4 New Patient 19:44:[address] David Marcelino MD [facility] Procedures Code Procedure Name Date Entry Date Standard Description CPT-49794 Abdomen, 1 view 16:35:[address] CPT-29084 Interstim trial 08:36:54 CDT CPT-69163 Interstim trial 21:00:45 CDT CPT-03284 Postop F/U Visit 20:37:[address] CPT-01717 Postop F/U Visit 15:28:[address]
--- OUTSIDE RECORDS SUMMARY | 2018-05-29 09:19 | XMS REPORT | Clinical Summary ---
Author Author Admin, MONICA Organization [facility] Address Unknown Phone Unavailable Allergies, Adverse [...] as needed for muscle spasm/pain CYCLOBENZAPRINE HCL 23929443434 No Longer Active David Marcelino MD Active VITAMIN C PLUS 1000 MG ORAL TABLET 3 tabs by mouth three times daily BIOFLAVONOID PRODUCTS 01582653327 Active David Marcelino MD Active TOPROL XL 50 MG ORAL TABLET EXTENDED RELEASE 24 HOUR 1 tab by mouth daily METOPROLOL SUCCINATE 49945966781 Active David Marcelino MD Active LEVOTHYROXINE SODIUM 150 MCG ORAL TABLET 1 pill by mouth daily, for thyroid LEVOTHYROXINE SODIUM 84867795713 Active David Marcelino MD Active REQUIP 5 MG ORAL TABLET 2 tabs by mouth daily ROPINIROLE HCL 51578427127 Active David Marcelino MD Active LASIX 40 MG ORAL TABLET 1 tablet by mouth daily FUROSEMIDE 17879090353 No Longer Active David Marcelino MD Active KLOR-CON M10 10 MEQ ORAL TABLET EXTENDED RELEASE 1 tablet by mouth daily POTASSIUM CHLORIDE GI CR 01842710253 No Longer Active David Marcelino MD Active KLONOPIN 1 MG ORAL TABLET 1 tab by mouth daily CLONAZEPAM 54201006111 No Longer Active David Marcelino MD Active AMITRIPTYLINE HCL 25 MG ORAL TABLET 1 tab by mouth daily at bedtime 09/21 AMITRIPTYLINE HCL 73483988882 No Longer Active David Marcelino MD Active AMBIEN 5 MG ORAL TABLET 1 po qHS PRN Insomnia ZOLPIDEM TARTRATE 97242019363 No Longer Active David Marcelino MD Active VESICARE 10 MG ORAL TABLET 1 pill by mouth daily for overactive bladder 06/05 SOLIFENACIN SUCCINATE 82017663301 No Longer Active David Marcelino MD Active EQ FIBER THERAPY 0.52 GM ORAL CAPSULE 1 cap by mouth three times daily PSYLLIUM 45962080722 Active David Marcelino MD Active FISH OIL CONCENTRATE 1000 MG ORAL CAPSULE 3 caps by mouth daily OMEGA- 3 FATTY ACIDS 08492012130 Active David Marcelino MD Active VITAMIN D3 40651 UNIT ORAL TABLET 1 cap by mouth monthly CHOLECALCIFEROL 37799861329 Active David Marcelino MD Active SYMBICORT 160-4.5 MCG/ACT INHALATION AEROSOL 2 puff BID BUDESONIDE- FORMOTEROL FUMARATE 10793288506 Active Dvaid Marcelino MD Active PROVENTIL HFA 108 (90 Base) MCG/ACT INHALATION AEROSOL SOLUTION 2 inhaltions prn ALBUTEROL SULFATE 64145951155 Active David Marcelino MD Active PROTONIX 40 MG ORAL TABLET DELAYED RELEASE 1 po q a.m. PANTOPRAZOLE SODIUM 88484577235 Active David Marcelino MD Active NORVASC 10 MG ORAL TABLET 1 tablet by mouth daily AMLODIPINE BESYLATE 13932384578 Active David Marcelino MD Active LYRICA 150 MG ORAL CAPSULE 1 tab by mouth 3 times daily PREGABALIN 77440314071 Active David Marcelino MD Active LOSARTAN POTASSIUM 100 MG ORAL TABLET 1 pill by mouth daily, for blood pressure LOSARTAN POTASSIUM 62797820176 Active David Marcelino MD Active VERAMYST 27.5 MCG/SPRAY NASAL SUSPENSION 1 spray in nostril as needed FLUTICASONE FUROATE 53220762670 Active David Marcelino MD Active FERROUS SULFATE 325 (65 Fe) MG ORAL TABLET 1 tablet by mouth daily FERROUS SULFATE 94912536336 Active David Marcelino MD Active CYMBALTA 60 MG ORAL CAPSULE DELAYED RELEASE PARTICLES 1 cap by mouth daily DULOXETINE HCL 40992647354 Active David Marcelino MD Active CETIRIZINE HCL 10 MG ORAL TABLET 1 po qd PRN Allergies CETIRIZINE HCL 71249832122 Active J Jarrod Marcelino MD Active VESICARE 10 MG ORAL TABLET 1 pill by mouth daily for overactive bladder 06/05 VESICARE 10 MG ORAL TABLET SOLIFENACIN SUCCINATE Inactive AMBIEN 5 MG ORAL TABLET 1 po qHS PRN Insomnia AMBIEN 5 MG ORAL TABLET 016906 ZOLPIDEM TARTRATE Inactive AMITRIPTYLINE HCL 25 MG ORAL TABLET 1 tab by mouth daily at bedtime 09/21 AMITRIPTYLINE HCL 25 MG ORAL TABLET 207797 AMITRIPTYLINE HCL Inactive KLONOPIN 1 MG ORAL TABLET 1 tab by mouth daily KLONOPIN 1 MG ORAL TABLET 998415 CLONAZEPAM Inactive KLOR-CON M10 10 MEQ ORAL TABLET EXTENDED RELEASE 1 tablet by mouth daily KLOR-CON M10 10 MEQ ORAL TABLET EXTENDED RELEASE 9686459 POTASSIUM CHLORIDE GI CR Inactive LASIX 40 MG ORAL TABLET 1 tablet by mouth daily LASIX 40 MG ORAL TABLET 937763 FUROSEMIDE Inactive CYCLOBENZAPRINE HCL 10 MG ORAL TABLET 1 tablet by mouth three times daily as needed for muscle spasm/pain CYCLOBENZAPRINE HCL 10 MG ORAL TABLET 810919 CYCLOBENZAPRINE HCL Inactive Vital Signs Date Name [...] Measured Encounters Code Encounter Date Provider Facility CPT-58053 Level 3 Est. Patient 21:01:28 CDT David Marcelino MD [facility] CPT-07293 Level 3 Est. 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
--- OUTSIDE RECORDS SUMMARY | 2018-05-29 09:19 | XMS REPORT | Clinical Summary ---
Author Author Admin, MONICA Organization [facility] Address Unknown Phone Unavailable Allergies, Adverse [...] as needed for muscle spasm/pain CYCLOBENZAPRINE HCL 34421099481 No Longer Active David Marcelino MD Active VITAMIN C PLUS 1000 MG ORAL TABLET 3 tabs by mouth three times daily BIOFLAVONOID PRODUCTS 78978175790 Active David Marcelino MD Active TOPROL XL 50 MG ORAL TABLET EXTENDED RELEASE 24 HOUR 1 tab by mouth daily METOPROLOL SUCCINATE 64272971292 Active David Marcelino MD Active LEVOTHYROXINE SODIUM 150 MCG ORAL TABLET 1 pill by mouth daily, for thyroid LEVOTHYROXINE SODIUM 00907925909 Active David Marcelino MD Active REQUIP 5 MG ORAL TABLET 2 tabs by mouth daily ROPINIROLE HCL 66544246115 Active David Marcelino MD Active LASIX 40 MG ORAL TABLET 1 tablet by mouth daily FUROSEMIDE 79268712507 No Longer Active David Marcelino MD Active KLOR-CON M10 10 MEQ ORAL TABLET EXTENDED RELEASE 1 tablet by mouth daily POTASSIUM CHLORIDE GI CR 27373347822 No Longer Active David Marcelino MD Active KLONOPIN 1 MG ORAL TABLET 1 tab by mouth daily CLONAZEPAM 31057119885 No Longer Active David Marcelino MD Active AMITRIPTYLINE HCL 25 MG ORAL TABLET 1 tab by mouth daily at bedtime 09/21 AMITRIPTYLINE HCL 92891278784 No Longer Active David Marcelino MD Active AMBIEN 5 MG ORAL TABLET 1 po qHS PRN Insomnia ZOLPIDEM TARTRATE 14383771020 No Longer Active David Marcelino MD Active VESICARE 10 MG ORAL TABLET 1 pill by mouth daily for overactive bladder 06/05 SOLIFENACIN SUCCINATE 79457351826 No Longer Active David Marcelino MD Active EQ FIBER THERAPY 0.52 GM ORAL CAPSULE 1 cap by mouth three times daily PSYLLIUM 79073266645 Active David Marcelino MD Active FISH OIL CONCENTRATE 1000 MG ORAL CAPSULE 3 caps by mouth daily OMEGA- 3 FATTY ACIDS 64558317484 Active David Marcelino MD Active VITAMIN D3 43665 UNIT ORAL TABLET 1 cap by mouth monthly CHOLECALCIFEROL 73285982272 Active David Marcelino MD Active SYMBICORT 160-4.5 MCG/ACT INHALATION AEROSOL 2 puff BID BUDESONIDE- FORMOTEROL FUMARATE 07207455683 Active David Marcelino MD Active PROVENTIL HFA 108 (90 Base) MCG/ACT INHALATION AEROSOL SOLUTION 2 inhaltions prn ALBUTEROL SULFATE 80014409828 Active David Marcelino MD Active PROTONIX 40 MG ORAL TABLET DELAYED RELEASE 1 po q a.m. PANTOPRAZOLE SODIUM 56658993297 Active David Marcelino MD Active NORVASC 10 MG ORAL TABLET 1 tablet by mouth daily AMLODIPINE BESYLATE 82324540886 Active David Marcelino MD Active LYRICA 150 MG ORAL CAPSULE 1 tab by mouth 3 times daily PREGABALIN 43707945109 Active David Marcelino MD Active LOSARTAN POTASSIUM 100 MG ORAL TABLET 1 pill by mouth daily, for blood pressure LOSARTAN POTASSIUM 46410563715 Active David Marcelino MD Active VERAMYST 27.5 MCG/SPRAY NASAL SUSPENSION 1 spray in nostril as needed FLUTICASONE FUROATE 19773036381 Active David Marcelino MD Active FERROUS SULFATE 325 (65 Fe) MG ORAL TABLET 1 tablet by mouth daily FERROUS SULFATE 16241478848 Active David Marcelino MD Active CYMBALTA 60 MG ORAL CAPSULE DELAYED RELEASE PARTICLES 1 cap by mouth daily DULOXETINE HCL 50297126951 Active David Marcelino MD Active CETIRIZINE HCL 10 MG ORAL TABLET 1 po qd PRN Allergies CETIRIZINE HCL 94778853444 Active J Jarrod Marcelino MD Active VESICARE 10 MG ORAL TABLET 1 pill by mouth daily for overactive bladder 06/05 VESICARE 10 MG ORAL TABLET SOLIFENACIN SUCCINATE Inactive AMBIEN 5 MG ORAL TABLET 1 po qHS PRN Insomnia AMBIEN 5 MG ORAL TABLET 283724 ZOLPIDEM TARTRATE Inactive AMITRIPTYLINE HCL 25 MG ORAL TABLET 1 tab by mouth daily at bedtime 09/21 AMITRIPTYLINE HCL 25 MG ORAL TABLET 806473 AMITRIPTYLINE HCL Inactive KLONOPIN 1 MG ORAL TABLET 1 tab by mouth daily KLONOPIN 1 MG ORAL TABLET 589694 CLONAZEPAM Inactive KLOR-CON M10 10 MEQ ORAL TABLET EXTENDED RELEASE 1 tablet by mouth daily KLOR-CON M10 10 MEQ ORAL TABLET EXTENDED RELEASE 8578732 POTASSIUM CHLORIDE GI CR Inactive LASIX 40 MG ORAL TABLET 1 tablet by mouth daily LASIX 40 MG ORAL TABLET 817691 FUROSEMIDE Inactive CYCLOBENZAPRINE HCL 10 MG ORAL TABLET 1 tablet by mouth three times daily as needed for muscle spasm/pain CYCLOBENZAPRINE HCL 10 MG ORAL TABLET 046475 CYCLOBENZAPRINE HCL Inactive Vital Signs Date Name [...] Measured Encounters Code Encounter Date Provider Facility CPT-06186 Level 3 Est. Patient 21:01:28 CDT David Marcelino MD [facility] CPT-82581 Level 3 Est. 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
--- OUTSIDE RECORDS SUMMARY | 2018-05-29 09:19 | XMS REPORT | Clinical Summary ---
Author Author Admin, E Organization [facility] Address Unknown Phone Unavailable Allergies, Adverse [...] as needed for muscle spasm/pain CYCLOBENZAPRINE HCL 28792346371 No Longer Active David Marcelino MD Active VITAMIN C PLUS 1000 MG ORAL TABLET 3 tabs by mouth three times daily BIOFLAVONOID PRODUCTS 12258540624 Active David Marcelino MD Active TOPROL XL 50 MG ORAL TABLET EXTENDED RELEASE 24 HOUR 1 tab by mouth daily METOPROLOL SUCCINATE 78099262434 Active David Marcelino MD Active LEVOTHYROXINE SODIUM 150 MCG ORAL TABLET 1 pill by mouth daily, for thyroid LEVOTHYROXINE SODIUM 14178598108 Active David Marcelino MD Active REQUIP 5 MG ORAL TABLET 2 tabs by mouth daily ROPINIROLE HCL 12081617794 Active David Marcelino MD Active LASIX 40 MG ORAL TABLET 1 tablet by mouth daily FUROSEMIDE 18847816532 No Longer Active David Marcelino MD Active KLOR-CON M10 10 MEQ ORAL TABLET EXTENDED RELEASE 1 tablet by mouth daily POTASSIUM CHLORIDE GI CR 35596295806 No Longer Active David Marcelino MD Active KLONOPIN 1 MG ORAL TABLET 1 tab by mouth daily CLONAZEPAM 80873800169 No Longer Active David Marcelino MD Active AMITRIPTYLINE HCL 25 MG ORAL TABLET 1 tab by mouth daily at bedtime 09/21 AMITRIPTYLINE HCL 86428516683 No Longer Active David Marcelino MD Active AMBIEN 5 MG ORAL TABLET 1 po qHS PRN Insomnia ZOLPIDEM TARTRATE 44447792296 No Longer Active David Marcelino MD Active VESICARE 10 MG ORAL TABLET 1 pill by mouth daily for overactive bladder 06/05 SOLIFENACIN SUCCINATE 37902321917 No Longer Active David Marcelino MD Active EQ FIBER THERAPY 0.52 GM ORAL CAPSULE 1 cap by mouth three times daily PSYLLIUM 84546400894 Active David Marcelino MD Active FISH OIL CONCENTRATE 1000 MG ORAL CAPSULE 3 caps by mouth daily OMEGA- 3 FATTY ACIDS 60306889394 Active David Marcelino MD Active VITAMIN D3 68159 UNIT ORAL TABLET 1 cap by mouth monthly CHOLECALCIFEROL 86802142043 Active David Marcelino MD Active SYMBICORT 160-4.5 MCG/ACT INHALATION AEROSOL 2 puff BID BUDESONIDE- FORMOTEROL FUMARATE 75591734416 Active David Marcelino MD Active PROVENTIL HFA 108 (90 Base) MCG/ACT INHALATION AEROSOL SOLUTION 2 inhaltions prn ALBUTEROL SULFATE 69567327148 Active David Marcelino MD Active PROTONIX 40 MG ORAL TABLET DELAYED RELEASE 1 po q a.m. PANTOPRAZOLE SODIUM 07114736052 Active David Marcelino MD Active NORVASC 10 MG ORAL TABLET 1 tablet by mouth daily AMLODIPINE BESYLATE 18880090069 Active David Marcelino MD Active LYRICA 150 MG ORAL CAPSULE 1 tab by mouth 3 times daily PREGABALIN 19320565007 Active David Marcelino MD Active LOSARTAN POTASSIUM 100 MG ORAL TABLET 1 pill by mouth daily, for blood pressure LOSARTAN POTASSIUM 59036667091 Active David Marcelino MD Active VERAMYST 27.5 MCG/SPRAY NASAL SUSPENSION 1 spray in nostril as needed FLUTICASONE FUROATE 52288155484 Active David Marcelino MD Active FERROUS SULFATE 325 (65 Fe) MG ORAL TABLET 1 tablet by mouth daily FERROUS SULFATE 14992982972 Active David Marcelino MD Active CYMBALTA 60 MG ORAL CAPSULE DELAYED RELEASE PARTICLES 1 cap by mouth daily DULOXETINE HCL 28640848880 Active David Marcelino MD Active CETIRIZINE HCL 10 MG ORAL TABLET 1 po qd PRN Allergies CETIRIZINE HCL 10223983595 Active David Marcelino MD Active VESICARE 10 MG ORAL TABLET 1 pill by mouth daily for overactive bladder 06/05 VESICARE 10 MG ORAL TABLET SOLIFENACIN SUCCINATE Inactive AMBIEN 5 MG ORAL TABLET 1 po qHS PRN Insomnia AMBIEN 5 MG ORAL TABLET 667118 ZOLPIDEM TARTRATE Inactive AMITRIPTYLINE HCL 25 MG ORAL TABLET 1 tab by mouth daily at bedtime 09/21 AMITRIPTYLINE HCL 25 MG ORAL TABLET 660905 AMITRIPTYLINE HCL Inactive KLONOPIN 1 MG ORAL TABLET 1 tab by mouth daily KLONOPIN 1 MG ORAL TABLET 775915 CLONAZEPAM Inactive KLOR-CON M10 10 MEQ ORAL TABLET EXTENDED RELEASE 1 tablet by mouth daily KLOR-CON M10 10 MEQ ORAL TABLET EXTENDED RELEASE 6287869 POTASSIUM CHLORIDE GI CR Inactive LASIX 40 MG ORAL TABLET 1 tablet by mouth daily LASIX 40 MG ORAL TABLET 759587 FUROSEMIDE Inactive CYCLOBENZAPRINE HCL 10 MG ORAL TABLET 1 tablet by mouth three times daily as needed for muscle spasm/pain CYCLOBENZAPRINE HCL 10 MG ORAL TABLET 431087 CYCLOBENZAPRINE HCL Inactive Vital Signs Date Name [...] Measured Encounters Code Encounter Date Provider Facility CPT-75302 Level 3 Est. Patient 21:01:28 CDT David Marcelino MD [facility] CPT-24311 Level 3 Est. 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
--- OUTSIDE RECORDS SUMMARY | 2018-05-29 09:21 | XMS REPORT | Clinical Summary ---
Author Author Admin, MONICA Organization [facility] Address Unknown Phone Unavailable Allergies, Adverse Reactions, [...] as needed for muscle spasm/pain CYCLOBENZAPRINE HCL 09212184804 No Longer Active David Marcelino MD Active VITAMIN C PLUS 1000 MG ORAL TABLET 3 tabs by mouth three times daily BIOFLAVONOID PRODUCTS 38219185026 Active David Marcelino MD Active TOPROL XL 50 MG ORAL TABLET EXTENDED RELEASE 24 HOUR 1 tab by mouth daily METOPROLOL SUCCINATE 13281640865 Active David Marcelino MD Active LEVOTHYROXINE SODIUM 150 MCG ORAL TABLET 1 pill by mouth daily, for thyroid LEVOTHYROXINE SODIUM 07713863428 Active David Marcelino MD Active REQUIP 5 MG ORAL TABLET 2 tabs by mouth daily ROPINIROLE HCL 39165923468 Active David Marcelino MD Active LASIX 40 MG ORAL TABLET 1 tablet by mouth daily FUROSEMIDE 72097712990 No Longer Active David Marcelino MD Active KLOR-CON M10 10 MEQ ORAL TABLET EXTENDED RELEASE 1 tablet by mouth daily POTASSIUM CHLORIDE GI CR 77355104937 No Longer Active David Marcelino MD Active KLONOPIN 1 MG ORAL TABLET 1 tab by mouth daily CLONAZEPAM 84779141512 No Longer Active David Marcelino MD Active AMITRIPTYLINE HCL 25 MG ORAL TABLET 1 tab by mouth daily at bedtime 09/21 AMITRIPTYLINE HCL 34823743305 No Longer Active David Marcelino MD Active AMBIEN 5 MG ORAL TABLET 1 po qHS PRN Insomnia ZOLPIDEM TARTRATE 79126408335 No Longer Active David Marcelino MD Active VESICARE 10 MG ORAL TABLET 1 pill by mouth daily for overactive bladder 06/05 SOLIFENACIN SUCCINATE 58077589713 No Longer Active David Marcelino MD Active EQ FIBER THERAPY 0.52 GM ORAL CAPSULE 1 cap by mouth three times daily PSYLLIUM 42286313235 Active David Marcelino MD Active FISH OIL CONCENTRATE 1000 MG ORAL CAPSULE 3 caps by mouth daily OMEGA- 3 FATTY ACIDS 12991180232 Active David Marcelino MD Active VITAMIN D3 58133 UNIT ORAL TABLET 1 cap by mouth monthly CHOLECALCIFEROL 31822872428 Active David Marcelino MD Active SYMBICORT 160-4.5 MCG/ACT INHALATION AEROSOL 2 puff BID BUDESONIDE- FORMOTEROL FUMARATE 20768298676 Active David Marcelino MD Active PROVENTIL HFA 108 (90 Base) MCG/ACT INHALATION AEROSOL SOLUTION 2 inhaltions prn ALBUTEROL SULFATE 40793008196 Active David Marcelino MD Active PROTONIX 40 MG ORAL TABLET DELAYED RELEASE 1 po q a.m. PANTOPRAZOLE SODIUM 06140892595 Active David Marcelino MD Active NORVASC 10 MG ORAL TABLET 1 tablet by mouth daily AMLODIPINE BESYLATE 19323586290 Active David Marcelino MD Active LYRICA 150 MG ORAL CAPSULE 1 tab by mouth 3 times daily PREGABALIN 95962286112 Active David Marcelino MD Active LOSARTAN POTASSIUM 100 MG ORAL TABLET 1 pill by mouth daily, for blood pressure LOSARTAN POTASSIUM 65891549391 Active David Marcelino MD Active VERAMYST 27.5 MCG/SPRAY NASAL SUSPENSION 1 spray in nostril as needed FLUTICASONE FUROATE 29472525544 Active David Marcelino MD Active FERROUS SULFATE 325 (65 Fe) MG ORAL TABLET 1 tablet by mouth daily FERROUS SULFATE 02910308366 Active David Marcelino MD Active CYMBALTA 60 MG ORAL CAPSULE DELAYED RELEASE PARTICLES 1 cap by mouth daily DULOXETINE HCL 59882699701 Active David Marcelino MD Active CETIRIZINE HCL 10 MG ORAL TABLET 1 po qd PRN Allergies CETIRIZINE HCL 22434491958 Active David Marcelino MD Active VESICARE 10 MG ORAL TABLET 1 pill by mouth daily for overactive bladder 06/05 VESICARE 10 MG ORAL TABLET SOLIFENACIN SUCCINATE Inactive AMBIEN 5 MG ORAL TABLET 1 po qHS PRN Insomnia AMBIEN 5 MG ORAL TABLET 217815 ZOLPIDEM TARTRATE Inactive AMITRIPTYLINE HCL 25 MG ORAL TABLET 1 tab by mouth daily at bedtime 09/21 AMITRIPTYLINE HCL 25 MG ORAL TABLET 191834 AMITRIPTYLINE HCL Inactive KLONOPIN 1 MG ORAL TABLET 1 tab by mouth daily KLONOPIN 1 MG ORAL TABLET 198907 CLONAZEPAM Inactive KLOR-CON M10 10 MEQ ORAL TABLET EXTENDED RELEASE 1 tablet by mouth daily KLOR-CON M10 10 MEQ ORAL TABLET EXTENDED RELEASE 9684759 POTASSIUM CHLORIDE GI CR Inactive LASIX 40 MG ORAL TABLET 1 tablet by mouth daily LASIX 40 MG ORAL TABLET 310019 FUROSEMIDE Inactive CYCLOBENZAPRINE HCL 10 MG ORAL TABLET 1 tablet by mouth three times daily as needed for muscle spasm/pain CYCLOBENZAPRINE HCL 10 MG ORAL TABLET 192489 CYCLOBENZAPRINE HCL Inactive Encounters Code Encounter Date Provider Facility CPT-78691 Level 3 Est. Patient 21:01:28 CDT David Marcelino MD [facility] CPT-35583 Level 3 Est. 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
--- OUTSIDE RECORDS SUMMARY | 2018-05-29 09:21 | XMS REPORT | Clinical Summary ---
Author Author Admin, E Organization [facility] Address Unknown [...] as needed for muscle spasm/pain CYCLOBENZAPRINE HCL 76271580718 No Longer Active David Marcelino MD Active VITAMIN C PLUS 1000 MG ORAL TABLET 3 tabs by mouth three times daily BIOFLAVONOID PRODUCTS 71821306136 Active David Marcelino MD Active TOPROL XL 50 MG ORAL TABLET EXTENDED RELEASE 24 HOUR 1 tab by mouth daily METOPROLOL SUCCINATE 34023721703 Active David Marcelino MD Active LEVOTHYROXINE SODIUM 150 MCG ORAL TABLET 1 pill by mouth daily, for thyroid LEVOTHYROXINE SODIUM 65522702452 Active Davdi Marcelino MD Active REQUIP 5 MG ORAL TABLET 2 tabs by mouth daily ROPINIROLE HCL 30996881163 Active David Marcelino MD Active LASIX 40 MG ORAL TABLET 1 tablet by mouth daily FUROSEMIDE 79602722350 No Longer Active David Marcelino MD Active KLOR-CON M10 10 MEQ ORAL TABLET EXTENDED RELEASE 1 tablet by mouth daily POTASSIUM CHLORIDE GI CR 79453959947 No Longer Active David Marcelino MD Active KLONOPIN 1 MG ORAL TABLET 1 tab by mouth daily CLONAZEPAM 21005630598 No Longer Active David Marcelino MD Active AMITRIPTYLINE HCL 25 MG ORAL TABLET 1 tab by mouth daily at bedtime 09/21 AMITRIPTYLINE HCL 93570012256 No Longer Active David Marcelino MD Active AMBIEN 5 MG ORAL TABLET 1 po qHS PRN Insomnia ZOLPIDEM TARTRATE 81084111053 No Longer Active David Marcelino MD Active VESICARE 10 MG ORAL TABLET 1 pill by mouth daily for overactive bladder 06/05 SOLIFENACIN SUCCINATE 48924648099 No Longer Active David Marcelino MD Active EQ FIBER THERAPY 0.52 GM ORAL CAPSULE 1 cap by mouth three times daily PSYLLIUM 61106043028 Active David Marcelino MD Active FISH OIL CONCENTRATE 1000 MG ORAL CAPSULE 3 caps by mouth daily OMEGA- 3 FATTY ACIDS 64248238168 Active David Marcelino MD Active VITAMIN D3 25376 UNIT ORAL TABLET 1 cap by mouth monthly CHOLECALCIFEROL 85140850777 Active David Marcelino MD Active SYMBICORT 160-4.5 MCG/ACT INHALATION AEROSOL 2 puff BID BUDESONIDE- FORMOTEROL FUMARATE 16714621205 Active David Marcelino MD Active PROVENTIL HFA 108 (90 Base) MCG/ACT INHALATION AEROSOL SOLUTION 2 inhaltions prn ALBUTEROL SULFATE 76602460688 Active David Marcelino MD Active PROTONIX 40 MG ORAL TABLET DELAYED RELEASE 1 po q a.m. PANTOPRAZOLE SODIUM 31262050169 Active David Marcelino MD Active NORVASC 10 MG ORAL TABLET 1 tablet by mouth daily AMLODIPINE BESYLATE 32428294756 Active David Marcelino MD Active LYRICA 150 MG ORAL CAPSULE 1 tab by mouth 3 times daily PREGABALIN 38986362562 Active David Marcelino MD Active LOSARTAN POTASSIUM 100 MG ORAL TABLET 1 pill by mouth daily, for blood pressure LOSARTAN POTASSIUM 18482300993 Active David Marcelino MD Active VERAMYST 27.5 MCG/SPRAY NASAL SUSPENSION 1 spray in nostril as needed FLUTICASONE FUROATE 45936374578 Active David Marcelino MD Active FERROUS SULFATE 325 (65 Fe) MG ORAL TABLET 1 tablet by mouth daily FERROUS SULFATE 80438090330 Active David Marcelino MD Active CYMBALTA 60 MG ORAL CAPSULE DELAYED RELEASE PARTICLES 1 cap by mouth daily DULOXETINE HCL 74148266083 Active David Marcelino MD Active CETIRIZINE HCL 10 MG ORAL TABLET 1 po qd PRN Allergies CETIRIZINE HCL 27637807350 Active David Marcelino MD Active VESICARE 10 MG ORAL TABLET 1 pill by mouth daily for overactive bladder 06/05 VESICARE 10 MG ORAL TABLET SOLIFENACIN SUCCINATE Inactive AMBIEN 5 MG ORAL TABLET 1 po qHS PRN Insomnia AMBIEN 5 MG ORAL TABLET 263794 ZOLPIDEM TARTRATE Inactive AMITRIPTYLINE HCL 25 MG ORAL TABLET 1 tab by mouth daily at bedtime 09/21 AMITRIPTYLINE HCL 25 MG ORAL TABLET 524056 AMITRIPTYLINE HCL Inactive KLONOPIN 1 MG ORAL TABLET 1 tab by mouth daily KLONOPIN 1 MG ORAL TABLET 634404 CLONAZEPAM Inactive KLOR-CON M10 10 MEQ ORAL TABLET EXTENDED RELEASE 1 tablet by mouth daily KLOR-CON M10 10 MEQ ORAL TABLET EXTENDED RELEASE 9242092 POTASSIUM CHLORIDE GI CR Inactive LASIX 40 MG ORAL TABLET 1 tablet by mouth daily LASIX 40 MG ORAL TABLET 410041 FUROSEMIDE Inactive CYCLOBENZAPRINE HCL 10 MG ORAL TABLET 1 tablet by mouth three times daily as needed for muscle spasm/pain CYCLOBENZAPRINE HCL 10 MG ORAL TABLET 123388 CYCLOBENZAPRINE HCL Inactive Encounters Code Encounter Date Provider Facility CPT-67184 Level 3 Est. Patient 21:01:28 CDT David Marcelino MD [facility] CPT-72761 Level 3 Est. 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
--- OUTSIDE RECORDS SUMMARY | 2018-05-29 09:21 | XMS REPORT | Clinical Summary ---
Author Author Admin, E Organization [facility] Address Unknown Phone Unavailable Allergies, Adverse [...] as needed for muscle spasm/pain CYCLOBENZAPRINE HCL 25921354959 No Longer Active David Marcelino MD Active VITAMIN C PLUS 1000 MG ORAL TABLET 3 tabs by mouth three times daily BIOFLAVONOID PRODUCTS 22649242328 Active David Marcelino MD Active TOPROL XL 50 MG ORAL TABLET EXTENDED RELEASE 24 HOUR 1 tab by mouth daily METOPROLOL SUCCINATE 95029441868 Active David Marcelino MD Active LEVOTHYROXINE SODIUM 150 MCG ORAL TABLET 1 pill by mouth daily, for thyroid LEVOTHYROXINE SODIUM 25623660369 Active David Marcelino MD Active REQUIP 5 MG ORAL TABLET 2 tabs by mouth daily ROPINIROLE HCL 17075855828 Active David Marcelino MD Active LASIX 40 MG ORAL TABLET 1 tablet by mouth daily FUROSEMIDE 94343166672 No Longer Active David Marcelino MD Active KLOR-CON M10 10 MEQ ORAL TABLET EXTENDED RELEASE 1 tablet by mouth daily POTASSIUM CHLORIDE GI CR 30203427889 No Longer Active David Marcelino MD Active KLONOPIN 1 MG ORAL TABLET 1 tab by mouth daily CLONAZEPAM 47407252209 No Longer Active David Marcelino MD Active AMITRIPTYLINE HCL 25 MG ORAL TABLET 1 tab by mouth daily at bedtime 09/21 AMITRIPTYLINE HCL 81214724535 No Longer Active David Marcelino MD Active AMBIEN 5 MG ORAL TABLET 1 po qHS PRN Insomnia ZOLPIDEM TARTRATE 08407867451 No Longer Active David Marcelino MD Active VESICARE 10 MG ORAL TABLET 1 pill by mouth daily for overactive bladder 06/05 SOLIFENACIN SUCCINATE 30240949255 No Longer Active David Marcelino MD Active EQ FIBER THERAPY 0.52 GM ORAL CAPSULE 1 cap by mouth three times daily PSYLLIUM 84523720577 Active David Marcelino MD Active FISH OIL CONCENTRATE 1000 MG ORAL CAPSULE 3 caps by mouth daily OMEGA- 3 FATTY ACIDS 97599381434 Active David Marcelino MD Active VITAMIN D3 88706 UNIT ORAL TABLET 1 cap by mouth monthly CHOLECALCIFEROL 51672760539 Active David Marcelino MD Active SYMBICORT 160-4.5 MCG/ACT INHALATION AEROSOL 2 puff BID BUDESONIDE- FORMOTEROL FUMARATE 54299942650 Active David Marcelino MD Active PROVENTIL HFA 108 (90 Base) MCG/ACT INHALATION AEROSOL SOLUTION 2 inhaltions prn ALBUTEROL SULFATE 02720056268 Active David Marcelino MD Active PROTONIX 40 MG ORAL TABLET DELAYED RELEASE 1 po q a.m. PANTOPRAZOLE SODIUM 08318589468 Active David Marcelino MD Active NORVASC 10 MG ORAL TABLET 1 tablet by mouth daily AMLODIPINE BESYLATE 54973303025 Active David Marcelino MD Active LYRICA 150 MG ORAL CAPSULE 1 tab by mouth 3 times daily PREGABALIN 94016093042 Active David Marcelino MD Active LOSARTAN POTASSIUM 100 MG ORAL TABLET 1 pill by mouth daily, for blood pressure LOSARTAN POTASSIUM 52128156099 Active David Marcelino MD Active VERAMYST 27.5 MCG/SPRAY NASAL SUSPENSION 1 spray in nostril as needed FLUTICASONE FUROATE 59937263841 Active David Marcelino MD Active FERROUS SULFATE 325 (65 Fe) MG ORAL TABLET 1 tablet by mouth daily FERROUS SULFATE 24041720508 Active David Marcelino MD Active CYMBALTA 60 MG ORAL CAPSULE DELAYED RELEASE PARTICLES 1 cap by mouth daily DULOXETINE HCL 14927067693 Active David Marcelino MD Active CETIRIZINE HCL 10 MG ORAL TABLET 1 po qd PRN Allergies CETIRIZINE HCL 24497169749 Active David Marcelino MD Active VESICARE 10 MG ORAL TABLET 1 pill by mouth daily for overactive bladder 06/05 VESICARE 10 MG ORAL TABLET SOLIFENACIN SUCCINATE Inactive AMBIEN 5 MG ORAL TABLET 1 po qHS PRN Insomnia AMBIEN 5 MG ORAL TABLET 787626 ZOLPIDEM TARTRATE Inactive AMITRIPTYLINE HCL 25 MG ORAL TABLET 1 tab by mouth daily at bedtime 09/21 AMITRIPTYLINE HCL 25 MG ORAL TABLET 698562 AMITRIPTYLINE HCL Inactive KLONOPIN 1 MG ORAL TABLET 1 tab by mouth daily KLONOPIN 1 MG ORAL TABLET 176879 CLONAZEPAM Inactive KLOR-CON M10 10 MEQ ORAL TABLET EXTENDED RELEASE 1 tablet by mouth daily KLOR-CON M10 10 MEQ ORAL TABLET EXTENDED RELEASE 7798866 POTASSIUM CHLORIDE GI CR Inactive LASIX 40 MG ORAL TABLET 1 tablet by mouth daily LASIX 40 MG ORAL TABLET 985374 FUROSEMIDE Inactive CYCLOBENZAPRINE HCL 10 MG ORAL TABLET 1 tablet by mouth three times daily as needed for muscle spasm/pain CYCLOBENZAPRINE HCL 10 MG ORAL TABLET 724734 CYCLOBENZAPRINE HCL Inactive Vital Signs Date Name Value Unit Range Description blood pressure, diastolic 66 mm[Hg] BP montalvo blood pressure, systolic 124 mm[Hg] BP sys height E&M 63 [in_us] Bdy height pulse rate E&M 74 /min Heart rate temperature E&M 97.1 [degF] Body temperature weight E&M 246 [lb_av] Weight Measured Encounters Code Encounter Date Provider Facility CPT-36397 Level 3 Est. Patient 21:01:28 CDT David Marcelino MD [facility] CPT-48914 Level 3 Est. Patient 21:05:34 TECHNICAL SUPPORT 1 SOFTWARE ENGINEER David Marcelino MD [facility] CPT-22997 Level 4 New Patient 19:44:00 TECHNICAL SUPPORT 1 SOFTWARE ENGINEER David Marcelino MD [facility] Procedures Code Procedure Name Date Entry Date Standard Description CPT-66285 Interstim trial 08:36:54 CDT CPT-18359 Interstim trial 21:00:45 CDT CPT-00181 Postop F/U Visit 20:37:06 TECHNICAL SUPPORT 1 SOFTWARE ENGINEER CPT-94796 Postop F/U Visit 15:28:22 TECHNICAL SUPPORT 1 SOFTWARE ENGINEER
[2018-05-29] MEDS ORDERED: PATIENT MAY USE OWN MEDS, ALL PO SCH (09:30)
--- NOTE | 2018-05-29 09:31 | Discharge Inst-Post CATH ---
Discharge Inst-CATH/EP Post Cardiac Cath/EP D/C Inst Follow Up/Plan Appointment with Dr. Franklin's office in 4 weeks CARDIAC CATH DISCHARGE INSTRUCTIONS *Hold Metformin for 48 hours post heart cath. ACTIVITY * Go Home directly and rest. * Limit activity of the leg (or wrist if it was used) for 7 days including aerobics, swimming, jogging, bicycling, etc. * Restrict stair-climbing for 7 days if possible, if not, climb up with your non -cath leg, then bring together on the same step. * Avoid lifting, pushing, pulling or excessive movement of the affected extremity for 7 days. * Customary sexual activity may be resumed after 2 days-use caution not to use a position that strains or causes pain to the affected extremity. * No driving for 24 hours. * NO SMOKING. * Avoid straining for bowel movements for 7 days. * Gentle walking on level ground is allowed. * Returning to work will depend on the type of procedure and the results. Your doctor will discuss this with you. CALL YOUR DOCTOR FOR ANY OF THE FOLLOWING: *If bleeding from the puncture site occurs- Apply gentle pressure to site with clean cloth and call your doctor or EMS. * If a knot or lump forms under the skin, increases in size, or causes pain. * If bruising appears to be worsening or moving further down your leg instead of disappearing. * Temperature above 101 F. CARE OF YOUR GROIN INCISION; * Bruising or purple discoloration of the skin near the puncture site is common. * You may shower only, no bathtub bathing for 5 days. Be careful to avoid slipping as your leg may feel stiff. * If a closure device was used on your femoral artery, please see the attached guide regarding care of the device and your leg. * Leave the dressing on, until removed by office staff. CARE OF YOUR WRIST INCISION; * Bruising or purple discoloration of the skin near the puncture site is common. * You may shower. * DO NOT submerge wrist. * Leave dressing on, until removed by office staff.. ARUNA FRANKLIN MD May 29, 2018 09:31
--- NOTE | 2018-05-29 09:35 | Cardiac Cath Report ---
Cardiac Cath Report Physician (s)/Clean Up Person (s) Physician ARUNA HERNANDEZ MD Pre-Procedure Diagnosis Pre-Procedure Diagnosis: chest pain, palpitation Post-Procedure Note Procedure Start Date: May 29, 2018 Name of Procedure: left heart catheterization Findings/Procedure Note PROCEDURE NOTE: 57 years old lady with history of mild coronary artery disease, has been having more frequent episodes of chest pain and shortness of breath, known to have baseline abnormal stress test, she was scheduled for cardiac catheterization possible PTCA. After explaining the procedure to the patient, all pros and cons were explained , all questions were answered. The patient signed the consent and then she was placed on the cardiac catheterization laboratory. Groin was prepped SL fashion local anesthesia was used. Sheath placed in the Right femoral artery. Sandra right and left catheter were used to access the coronary system. JR catheter was prolapsed into the left ventricular cavity, pressure was measured no left ventriculogram was done At the end of the procedure the sheath was removed. Closure device was used FINDINGS: Hemodynamics LV 109/11, end-diastolic pressure 11 Aorta 108/53 mean of 76 ANATOMY: Left Main has no obstructive disease Left Anterior Descending has mild tortuosity with mild disease nonobstructive disease Left Circumflex is dominant artery with mild disease nonobstructive disease Right Coronory Artery is smaller artery with mild disease nonobstructive disease CONCLUSION: 1. Mild coronary artery disease nonobstructive disease 2. Normal left ventricular end-diastolic pressure DISCUSSION AND RECOMMENDATION: continue to maximize medical therapy, weight loss and exercise Anesthesia Type: Conscious Sedation Estimated blood loss (mL): 10 ml Contrast Amount: 27 ml Total Radiation Dose: 288 mGy Post-Procedure Diagnosis Post-operative diagnosis: Chest pain Palpitation Coronary artery disease Hypertension Hyperlipidemia ARUNA HERNANDEZ MD May 29, 2018 09:35
== END 2018-05-29 14:45 | disposition home or self-care (01) ==
LOC: CATH 07:20 → SDC 09:56 → CATH 14:45
PROVIDERS: ATTEND Internal Medicine Cardiovascular Disease
DX: R07.9 Chest pain, unspecified (principal); R00.2 Palpitations; I25.10 Atherosclerotic heart disease of native coronary artery without angina pectoris; I12.9 Hypertensive chronic kidney disease with stage 1 through stage 4 chronic kidney disease, or unspecified chronic kidney disease; E78.5 Hyperlipidemia, unspecified; F32.9 Major depressive disorder, single episode, unspecified; M79.7 Fibromyalgia; G47.33 Obstructive sleep apnea (adult) (pediatric); I48.0 Paroxysmal atrial fibrillation; E66.01 Morbid (severe) obesity due to excess calories; Z87.19 Personal history of other diseases of the digestive system; E03.9 Hypothyroidism, unspecified; I65.23 Occlusion and stenosis of bilateral carotid arteries; N18.9 Chronic kidney disease, unspecified; R60.0 Localized edema
CPT/HCPCS: 36415; 36430; 71045; 80053; 80061; 81000; 85027; 85610; 85730; 87081; 93458

== ENCOUNTER → 2018-06-12 | Outpatient (CLI) | payer MEDICARE, MEDICAID ==
[~2018-06-12] MED LIST changes: +CHOL10007 PO; +CHOL500049 PO; +DICLOFENAC SOD TOP; +FLUT250D2 IH; +FLUTICASONE PROP; +MONT10TA24 PO; +NITR-68 PO; +ROPI5TAB3 PO; +SUMA100T3 PO
--- NOTE | 2018-06-12 15:31 | Diagnostic Imaging Report ---
PROCEDURE: CT sinuses without contrast TECHNIQUE: Multiple contiguous axial images were obtained through the sinuses without the use of intravenous contrast. Coronal and sagittal reformations were then performed. INDICATION: Chronic sinusitis and nasal drainage. The frontal sinuses are hypoplastic but clear. The ethmoid air cells are clear. There is leftward nasal septal deviation and spurring. The turbinates are unremarkable. The maxillary sinuses are clear. No substantial membrane thickening. No air-fluid levels. The maxillary sinus ostia are patent. The infundibula are unremarkable. Sphenoid sinuses are clear. There appears to be postsurgical defect in the left mastoid bone. No substantial debris, fluid or opacification of the middle ear cavities. IMPRESSION: Leftward nasal septal spurring and deviation, the paranasal sinuses and sinonasal spaces otherwise normal and clear. Dictated by: Dictated on workstation # [id number]
== END ==
LOC: RAD 13:59
PROVIDERS: ATTEND Otolaryngology Otolaryngology/Facial Plastic Surgery
DX: J32.9 Chronic sinusitis, unspecified (principal); J34.2 Deviated nasal septum
CPT/HCPCS: 70486

== ENCOUNTER → 2018-07-01 | Outpatient (CLI) | payer MEDICARE, MEDICAID ==
--- NOTE | 2018-07-01 17:51 | Diagnostic Imaging Report ---
CT THORACIC/LUMBAR SPINE WO Technique: Unenhanced CT imaging of the thoracic and lumbar spine was performed. Indication: Back pain. Comparison: None available. Findings: THORACIC SPINE: Normal kyphosis of the thoracic spine. No spondylolisthesis. No fracture. Intervertebral disc space heights are fairly well-preserved. Multilevel anterior degenerative endplate spurring is present. However, there are no areas of high-grade spinal stenosis or neural foraminal narrowing within the thoracic spine by CT. Visualized aspects of the posterior ribs are intact. Lungs are clear. LUMBAR SPINE: Normal lordosis of lumbar spine. No fracture or spondylolisthesis. Intervertebral disc space heights are preserved with the exception of mild narrowing at L3-4 and L4-L5. At L4-L5, there is disc bulging and facet osteoarthritis but this does not cause significant spinal stenosis. Mild bilateral foraminal narrowing at L3-L4 and L4-L5 secondary to disc bulging and intervertebral height loss. No high-grade spinal stenosis. SI joints are normal. Visualized aspects of the retroperitoneum show no concerning abnormality. IMPRESSION: 1. No malalignment or compression deformity in the thoracic or lumbar spine. 2. Mild multilevel degenerative disc disease in the lumbar spine. However, there are no areas of high-grade spinal canal or neural foraminal narrowing in the thoracic or lumbar spine. Dictated by: Dictated on workstation # [id number]
== END ==
LOC: RAD 16:57
PROVIDERS: ATTEND Pain Medicine Interventional Pain Medicine
DX: M51.37 Other intervertebral disc degeneration, lumbosacral region (principal); M47.817 Spondylosis without myelopathy or radiculopathy, lumbosacral region
CPT/HCPCS: 72128; 72131

== ENCOUNTER → 2018-07-17 | Outpatient (CLI) | payer MEDICARE, MEDICAID ==
[2018-07-17 17:22] LABS: HEMOGLOBIN 11.4 G/DL (11.5-16.0); MEAN PLATELET VOLUME 10.5 FL (7.4-10.4); RED CELL DISTRIBUTION WIDTH 13.5 % (10.0-14.5); WHITE BLOOD COUNT 7.4 10^3/uL (4.3-11.0)
[2018-07-17 17:25] LABS: BILIRUBIN,URINE NEGATIVE (NEGATIVE); CLARITY,URINE SLIGHTLY CLOUDY; COLOR,URINE YELLOW; GLUCOSE, URINE (UA) NEGATIVE (NEGATIVE); KETONES,URINE NEGATIVE (NEGATIVE); LEUKOCYTE ESTERASE ,URINE 3+ (NEGATIVE); NITRITE,URINE POSITIVE (NEGATIVE); PH,URINE 6.5 (5-9); PROTEIN,URINE 1+ (NEGATIVE); UROBILINOGEN,URINE NORMAL (NORMAL)
[2018-07-17 17:37] LABS: BACTERIA,URINE LARGE /HPF; RBC,URINE 0-2 /HPF; WBC,URINE TNTC /HPF
[2018-07-17 17:38] LABS: ALBUMIN 4.4 GM/DL (3.2-4.5); CREATININE SERUM 1.15 MG/DL (0.60-1.30); MAGNESIUM 2.1 MG/DL (1.8-2.4); PHOSPHORUS 3.8 MG/DL (2.3-4.7); POTASSIUM 3.9 MMOL/L (3.6-5.0); URIC ACID 5.3 MG/DL (2.6-7.2)
== END ==
LOC: LAB 16:58
PROVIDERS: ATTEND Nurse Practitioner
DX: I12.9 Hypertensive chronic kidney disease with stage 1 through stage 4 chronic kidney disease, or unspecified chronic kidney disease (principal); D63.1 Anemia in chronic kidney disease; N18.4 Chronic kidney disease, stage 4 (severe); N17.9 Acute kidney failure, unspecified; E78.5 Hyperlipidemia, unspecified; E55.9 Vitamin D deficiency, unspecified; E61.1 Iron deficiency; E87.3 Alkalosis; E87.5 Hyperkalemia; N25.81 Secondary hyperparathyroidism of renal origin; R80.9 Proteinuria, unspecified; E87.2 Acidosis
CPT/HCPCS: 36415; 80061; 80069; 81000; 82306; 82570; 83735; 84156; 84550; 85027; 87077; 87088

== ENCOUNTER → 2018-07-22 | Outpatient (CLI) | payer MEDICARE, MEDICAID | LOC: RAD 14:18 | PROVIDERS: ATTEND Nurse Practitioner Primary Care | DX: M25.511 Pain in right shoulder (principal); Z53.8 Procedure and treatment not carried out for other reasons ==

== ENCOUNTER → 2018-07-26 | Outpatient (CLI) | payer MEDICARE, MEDICAID ==
--- NOTE | 2018-07-26 19:26 | Diagnostic Imaging Report ---
EXAM: CT right shoulder without contrast. DATE: July 26, 2018. INDICATION: 57-year-old female, right shoulder pain. Fall in May 2018. Pain radiates down to hand. COMPARISON: None. TECHNIQUE: Axial CT images of the right shoulder without contrast were obtained. Coronal and sagittal reformats were obtained and provided. FINDINGS: The humeral head is not dislocated. The glenohumeral joint space is well maintained. There is no osteophyte formation or subchondral cystic change. The acromioclavicular joint is normally aligned. There are mild acromioclavicular degenerative changes with 1-2 mm undersurface osteophytes. There is no os acromiale. There is no acute fracture. There is no bone lesion. There are subcortical cystic changes within the humeral head. There is nondiagnostic direct evaluation of the rotator cuff tendons on CT. Fatty atrophy of the rotator cuff musculature. There is respiratory motion artifact. Visualized portions of the right lung are clear. There is no sizable fluid collection or hematoma. IMPRESSION: 1. No acute fracture or other acute abnormality at the level of the right shoulder. 2. Mild acromioclavicular degenerative changes with 1-2 mm undersurface osteophytes. Dictated on workstation # [id number]
== END ==
LOC: RAD 11:02
PROVIDERS: ATTEND Nurse Practitioner Primary Care
DX: M19.011 Primary osteoarthritis, right shoulder (principal); M25.711 Osteophyte, right shoulder
CPT/HCPCS: 73200

== ENCOUNTER 2018-08-03 14:53 | Inpatient (IN) | payer MEDICARE, MEDICAID | END 2018-08-05 10:30 | disposition home or self-care (01) | LOC: ER 14:53 → 4TH 17:08 ==

== ENCOUNTER → 2018-08-12 | Outpatient (CLI) | payer MEDICARE, MEDICAID ==
[~2018-08-12] MED LIST changes: +C250T PO; +CEFD300C3 PO; +CETI10TA17 PO; +DICL100G18 TP; +EZET10TA5 PO; +FERR325T18 PO; +GABA100C PO; +LEVO5TAB28 PO; +LISI10TA2 PO; +METH-287 PO
--- NOTE | 2018-08-12 10:16 | Diagnostic Imaging Report ---
PROCEDURE: CT chest without contrast. TECHNIQUE: Multiple contiguous axial images were obtained through the chest without the use of intravenous contrast. Auto Exposure Controls were utilized during the CT exam to meet ALARA standards for radiation dose reduction. INDICATION: Followup adenopathy. Comparison made with prior examination 10/26/2017 FINDINGS: There are no discrete pulmonary nodules, masses or infiltrates. There is no pleural or pericardial fluid. There is no pneumothorax. There is an unchanged 1.5 cm pretracheal lymph node. No other pathologically enlarged adenopathy is appreciated in the chest. Heart size is normal. There is mild atherosclerotic calcification of the aorta which is nonaneurysmal. The visualized intra-abdominal structures are unremarkable. There is mild thoracic spondylosis. IMPRESSION: Stable 1.5 cm pretracheal lymph node. This has been previously evaluated with PET and was negative. Recommend additional six-month followup to ensure stability. No other acute abnormality in the chest. Dictated by: Dictated on workstation # [id number]
== END ==
LOC: RAD 09:30
PROVIDERS: ATTEND Nurse Practitioner Family
DX: J45.909 Unspecified asthma, uncomplicated (principal); R59.0 Localized enlarged lymph nodes; R91.1 Solitary pulmonary nodule; G47.33 Obstructive sleep apnea (adult) (pediatric); K92.9 Disease of digestive system, unspecified; I48.0 Paroxysmal atrial fibrillation; Z78.9 Other specified health status
CPT/HCPCS: 71250

== ENCOUNTER 2018-10-26 12:04 | Emergency (ER) | payer MEDICAID, MEDICARE ==
[~2018-10-26] VITALS: Ht 154.9 cm; Wt 105.8 kg
--- OUTSIDE RECORDS SUMMARY | 2018-10-26 12:10 | XMS REPORT | Clinical Summary ---
Author Author [facility] Organization [facility] Address Unknown Phone Unavailable Care Team Providers Care Channel Development Director Name Role Phone PCP Unavailable Allergies Not [...]
--- OUTSIDE RECORDS SUMMARY | 2018-10-26 12:12 | XMS REPORT ---
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 Specialist Name Role Phone Migration, Doctor Unavailable Unavailable PROBLEMS Type Condition ICD9-CM Code AIM56-AQ Code Onset Dates Condition Status SNOMED Code Problem Hypothyroid E03.9 Active 88341164 Problem Asthma J45.909 Active 441673533 Problem Insomnia G47.00 Active 915865240 Problem Depressed F32.9 Active 85377117 Problem Palpitations R00.2 Active 98362828 Problem Functional diarrhea K59.1 Active 74897753 Problem Chronic kidney disease, stage 4 (severe) N18.4 Active 916214568 Problem Degenerative tear of medial meniscus of left knee M23.204 Active 112210555 Problem Dysthymic disorder F34.1 Active 06739380 Problem Bipolar disorder, current episode manic without psychotic features F31.10 Active 692359981 Problem Generalized anxiety disorder F41.1 Active 59139389 Problem Restless leg G25.81 Active 47142996 Problem Coronary artery disease involving [place] coronary artery of [place] heart, angina presence unspecified I25.10 Active 8225769038109 Problem Hypokalemia E87.6 Active 65475528 Problem Other seasonal allergic rhinitis J30.2 Active 322543857 Problem Mixed stress and urge urinary incontinence N39.46 Active 218611194 Problem Fibromyalgia M79.7 Active 396511244 Problem Essential (primary) hypertension I10 Active 37210135 Problem Long-term use of high-risk medication Z79.899 Active 722326863 Problem Vitamin D deficiency E55.9 Active 49261514 Problem Anemia in chronic kidney disease D63.1 Active [id number] Problem Low back pain M54.5 Active 344769664 Problem Chronic kidney disease, unspecified N18.9 Active 199017313 Problem Abnormal chest CT R93.8 Active 077939861 Problem Primary osteoarthritis of left knee M17.12 Active 120645905 Problem Mood disorder F39 Active 35092353 Problem Stage 3 chronic kidney disease N18.3 Active 632955045 Problem Perimenopausal vasomotor symptoms N95.1 Active 410455532 Problem Asthma with acute exacerbation in adult J45.901 Active 953050233 Problem Other chronic pain G89.29 Active 44747738 Problem History of colon polyps Z86.010 Active 212099562 Problem History of anemia Z86.2 Active 762030221 Problem Body mass index (BMI) of 40.0-44.9 in adult Z68.41 Active 302394745 Problem Seasonal allergic rhinitis due to pollen J30.1 Active 25507209 Problem Restless leg syndrome G25.81 Active 56560841 Problem Chronic pain syndrome G89.4 Active 743706350 ALLERGIES No Information ENCOUNTERS Encounter Location Date Diagnosis [facility] [id number] [place] [address] Nov, [place] [address] [address] Oct, [place] [address] [address] Oct, [facility] [id number] [place] [address] Oct, Chronic pain syndrome G89.4 [facility] [address] [address] Sep, [facility] [id number] [place] [address] Sep, Generalized anxiety disorder F41.1 and Major depressive disorder, recurrent episode with anxious distress F33.9 [facility] [id number] [place] [address] 17 Sep, 2018 Chronic kidney disease, stage 4 (severe) N18.4 [facility] [address] [address] 2018 Fibromyalgia M79.7 and Chronic pain syndrome G89.4 [facility] [id number] [place] [address] Sep, [address] [address] Sep, Chronic pain syndrome G89.4 [facility] [address] [place] [address] Sep, [facility] [id number] [place] [address] Sep, Chronic pain syndrome G89.4 ; Fibromyalgia M79.7 and Morbid obesity E66.01 [facility] [id number] [place] [address] August, Generalized anxiety disorder F41.1 and Major depressive disorder, recurrent episode with anxious distress F33.9 [place] [id number] [place] [address] August, Fibromyalgia M79.7 [place] [id number] [place] [address] August, Restless leg syndrome G25.81 ; Vitamin D deficiency E55.9 ; Urinary tract infection without hematuria, site unspecified N39.0 ; Pain in right shoulder M25.511 ; Other chronic pain G89.29 ; Biceps tendinitis on right M75.21 and Morbid obesity E66.01 [place] [id number] [place] [address] Jul, Urinary tract infection without hematuria, site unspecified N39.0 and Morbid obesity E66.01 [place] [address] [place] [address] Jul, [facility] [id number] [place] [address] Jul, [facility] [id number] [place] [address] Jul, Fibromyalgia M79.7 [facility] [id number] [place] [address] Jul, Acute pain of right shoulder M25.511 [place] [id number] [place] [address] Jul, Acute pain of right shoulder M25.511 and Morbid obesity E66.01 [place] [address] [place] [address] Jun, [place] [id number] [place] [address] 14 Jun, 2018 Generalized anxiety disorder F41.1 and Major depressive disorder, recurrent episode with anxious distress F33.9 [place] [id number] [place] [address] Jun, [place] [id number] [place] [address] Jun, Fibromyalgia M79.7 [facility] [address] [place] [address] Jun, Acute pain of right shoulder M25.511 ; Acute pain of right hip M25.551 and Morbid obesity E66.01 [place] [address] [place] [address] 11 May, 2018 Burning with urination R30.0 ; Vaginal discharge N89.8 ; Chronic kidney disease, stage 4 (severe) N18.4 ; Body mass index (BMI) of 40.0-44.9 in adult Z68.41 and Morbid obesity E66.01 [place] [address] [place] [address] 07 May, 2018 Fibromyalgia M79.7 [place] [address] [place] [address] 06 May, 2018 Generalized anxiety disorder F41.1 and Major depressive disorder, recurrent episode with anxious distress F33.9 [place] [address] [address] Apr, [place] [address] [address] Apr, Fibromyalgia M79.7 [facility] [address] [address] 14 Mar, 2018 Acute UTI N39.0 and Dysuria R30.0 [facility] [id number] [place] [address] 10 Mar, 2018 Fibromyalgia M79.7 [facility] [id number] [place] [address] 15 Feb, 2018 [facility] [id number] [place] [address] Feb, [facility] [id number] [place] [address] Feb, [facility] [id number] [place] [address] Feb, Fibromyalgia M79.7 [facility] [id number] [place] [address] 08 Feb, 2018 Complicated UTI (urinary tract infection) N39.0 [facility] [id number] [place] [address] Feb, [facility] [id number] [place] [address] Jan, Generalized anxiety disorder F41.1 and Major depressive disorder, recurrent episode with anxious distress F33.9 [facility] [address] [place] [address] Jan, Acute conjunctivitis of left eye, unspecified acute conjunctivitis type H10.32 [facility] [address] [place] [address] Jan, [facility] [id number] [place] [address] Jan, Acute non-recurrent maxillary sinusitis J01.00 ; Dysuria R30.0 ; Perimenopausal vasomotor symptoms N95.1 and Fibromyalgia M79.7 [facility] [id number] [address] 28 Dec, 2017 Vitamin D deficiency E55.9 [facility] [id number] [place] [address] 27 Dec, 2017 Vitamin D deficiency E55.9 [facility] [address] [place] [address] 24 Dec, 2017 Vitamin D deficiency E55.9 [facility] [id number] [place] [address] 12 Dec, 2017 [facility] [id number] [place] [address] Dec, Fibromyalgia M79.7 [facility] [id number] [place] [address] Nov, [facility] [id number] [place] [address] Nov, [facility] [id number] [place] [address] Nov, [facility] [id number] [place] [address] Nov, Fibromyalgia M79.7 ; Vision changes H53.9 ; Chest wall pain R07.89 and Chronic pain syndrome G89.4 [facility] [address] [place] [address] Nov, [facility] [id number] [place] [address] Nov, Rash of hands R21 [facility] [id number] [place] [address] 15 Nov, 2017 Generalized anxiety disorder F41.1 and Major depressive disorder, recurrent episode with anxious distress F33.9 [facility] [address] [place] [address] Nov, Fibromyalgia M79.7 [facility] [id number] [place] [address] Nov, Complicated UTI (urinary tract infection) N39.0 [facility] [id number] [place] [address] Oct, [facility] [address] [place] [address] Oct, Generalized anxiety disorder F41.1 and Major depressive disorder, recurrent episode with anxious distress F33.9 [facility] [id number] [place] [address] Oct, [place] [id number] [place] [address] Oct, Fibromyalgia M79.7 [place] [id number] [place] [address] Sep, Restless leg syndrome G25.81 and Restless leg G25.81 [place] [id number] [place] [address] Sep, [place] [address] [place] [address] Sep, Seasonal allergic rhinitis due to pollen J30.1 ; Screening for breast cancer Z12.31 ; Chest pain at rest R07.9 ; Restless leg syndrome G25.81 ; Essential (primary) hypertension I10 and Depressed F32.9 [place] [address] [place] [address] August, Fibromyalgia M79.7 [place] [address], [place] [address] August, [place] [id number] [place] [address] August, [facility] [address] [place] [address] August, Abnormal chest CT R93.8 [place] [id number] [place] [address] August, Generalized anxiety disorder F41.1 and Major depressive disorder, recurrent episode with anxious distress F33.9 [place] [id number] [place] [address] August, Abnormal chest [address] R93.8 [place] [address] [address] Jul, [place] [address] [address] Jul, Chronic kidney disease, stage 4 (severe) N18.4 [place] [address] [address] Jul, [place] [address] [address] Jul, Restless leg G25.81 ; Mixed stress and urge urinary incontinence N39.46 and Fibromyalgia M79.7 [place] [id number] [place] [address] Jul, Chronic kidney disease, stage 4 (severe) N18.4 [place] [id number] [place] [address] Jun, Orthostatic hypotension I95.1 ; Chronic kidney disease, stage 4 (severe) N18.4 ; Chest wall discomfort R07.89 and Body mass index (BMI) of 40.0-44.9 in adult Z68.41 [place] [id number] [place] [address] Jun, [place] [address] [address] Jun, Orthostatic hypotension I95.1 [place] [id number] [place] [address] Jun, [facility] [address] [address] Jun, Orthostatic hypotension I95.1 ; Dysuria R30.0 and Acute cystitis without hematuria N30.00 [facility] [id number] [place] [address] Jun, [facility] [id number] [place] [address] Jun, Chronic kidney disease, stage 4 (severe) N18.4 [facility] [id number] [place] [address] Jun, Fibromyalgia M79.7 [facility] [id number] [place] [address] Jun, [facility] [id number] [place] [address] Jun, [facility] [id number] [place] [address] May, Abnormal chest [address] R93.8 and Stage 3 chronic kidney disease N18.3 [facility] [id number] [place] [address] May, Chronic kidney disease, stage 4 (severe) N18.4 [facility] [id number] [place] [address] May, Chronic kidney disease, stage 4 (severe) N18.4 [facility] [id number] [place] [address] May, Abnormal chest [address] R93.8 [facility] [id number] [place] [address] May, [facility] [id number] [place] [address] May, [facility] [id number] [place] [address] May, Generalized anxiety disorder F41.1 and Major depressive disorder, recurrent episode with anxious distress F33.9 [facility] [address], [place] [address] May, Mood disorder F39 [facility] [address], [place] [address] Apr, [facility] [address] [place] [address] Apr, Infected skin lesion L08.9 and Muscle strain of right shoulder region, initial encounter S46.911A [facility] [address] [place] [address] Apr, Generalized anxiety disorder F41.1 and Major depressive disorder, recurrent episode with anxious distress F33.9 [facility] [address] [place] [address] Apr, [facility] [address] [place] [address] Apr, Recent urinary tract infection Z87.440 and Hypothyroid E03.9 [facility] [id number] [place] [address] Apr, Generalized anxiety disorder F41.1 and Major depressive disorder, recurrent episode with anxious distress F33.9 [facility] [address], [place] [address] Apr, Recent urinary tract infection Z87.440 [facility] [address] [place] [address] Mar, [facility] [address] [place] [address] Mar, Dysuria R30.0 ; Acute cystitis without hematuria N30.00 and BMI 40.0- 44.9, adult Z68.41 [facility] [address], [place] [address] Mar, [facility] [id number] [place] [address] Mar, [place] [address] [address] Mar, Generalized anxiety disorder F41.1 and Major depressive disorder, recurrent episode with anxious distress F33.9 [place] [id number] [place] [address] Feb, Conjunctivitis, bacterial H10.9 [place] [id number] [place] [address] Feb, [facility] [address] [address] Feb, Conjunctivitis, bacterial H10.9 [place] [address] [address] Feb, [facility] [address] [address] Feb, Dysuria R30.0 ; Acute cystitis N30.00 and BMI 40.0-44.9, adult Z68.41 [place] [id number] [place] [address] Feb, [place] [id number] [place] [address] Feb, Generalized anxiety disorder F41.1 and Major depressive disorder, recurrent episode with anxious distress F33.9 [place] [id number] [place] [address] Feb, Mood disorder F39 and BMI 40.0-44.9, adult Z68.41 [place] [id number] [place] [address] Jan, [place] [id number] [place] [address] Jan, [place] [id number] [place] [address] Jan, Hypothyroid E03.9 [place] [address] [address] Jan, [place] [id number] [place] [address] Jan, Chronic kidney disease, unspecified N18.9 ; Hypokalemia E87.6 ; Essential (primary) hypertension I10 ; Fibromyalgia M79.7 ; Coronary artery disease involving [place] coronary artery of [place] heart, angina presence unspecified I25.10 ; Hypothyroid E03.9 and Encounter for immunization Z23 [place] [address] [address] Jan, Hypothyroid E03.9 [place] [address] [address] Jan, [place] [address] [address] Dec, Vitamin D deficiency E55.9 [place] [address] [address] Dec, Primary osteoarthritis of left knee M17.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 [place] [id number] [place] [address] 19 Dec, 2016 Fibromyalgia M79.7 [place] [id number] [place] [address] 18 Dec, 2016 Mood disorder F39 [place] [id number] [place] [address] 13 Dec, 2016 [place] [address] [address] Dec, Generalized anxiety disorder F41.1 and Major depressive disorder, recurrent episode with anxious distress F33.9 [place] [address] [address] 11 Dec, 2016 [facility] [address], [place] [address] 08 Dec, 2016 Streptococcal meningitis G00.2 [facility] [address] [place] [address] 07 Dec, 2016 Streptococcal meningitis G00.2 [facility] [address] [place] [address] 07 Dec, 2016 [facility] [address] [place] [address] 06 Dec, 2016 Streptococcal meningitis G00.2 [facility] [address] [place] [address] Dec, 2016 [facility] [address] [place] [address] Dec, Major depressive disorder, recurrent episode with anxious distress F33.9 [facility] [address] [place] [address] Nov, Fever, unspecified fever cause R50.9 [facility] [address] [place] [address] Nov, [facility] [address] [place] [address] Nov, Hypothyroid E03.9 [facility] [address] [place] [address] Nov, Generalized anxiety disorder F41.1 and Major depressive disorder, recurrent episode with anxious distress F33.9 [facility] [address], [place] [address] Nov, [facility] [address] [id number] Oct, Dental examination Z01.20 [facility] [address] [place] [address] Oct, Generalized anxiety disorder F41.1 and Major depressive disorder, recurrent episode with anxious distress F33.9 [place] [address], [place] [address] Oct, Chronic kidney disease, stage 4 (severe) N18.4 [place] [address] [place] [address] Oct, [place] [id number] [place] [address] Oct, Fibromyalgia M79.7 [place] [id number] [place] [address] Oct, [place] [id number] [place] [address] Oct, Generalized anxiety disorder F41.1 ; Major depressive disorder, recurrent episode with anxious distress F33.9 and Bipolar disorder, current episode manic without psychotic features F31.10 [place] [id number] [place] [address] Sep, [place] [id number] [place] [address] Sep, [place] [id number] [place] [address] Sep, Vitamin D deficiency E55.9 [place] [address], [place] [address] Sep, Vitamin D deficiency E55.9 [place] [address] [address] Sep, [place] [id number] [place] [address] Sep, Chronic kidney disease, stage 4 (severe) N18.4 ; Hypothyroid E03.9 ; Restless leg G25.81 ; Fibromyalgia M79.7 ; Essential (primary) hypertension I10 ; Vitamin D deficiency E55.9 ; Dyspepsia R10.13 ; Anemia in chronic kidney disease D63.1 ; Chronic kidney disease, unspecified N18.9 ; Coronary artery disease involving [place] coronary artery of [place] heart, angina presence unspecified I25.10 ; Screening breast examination Z12.39 and Low back pain M54.5 [place] [address] [place] [address] August, Generalized anxiety disorder F41.1 and Major depressive disorder, recurrent episode with anxious distress F33.9 [place] [address] [address] [place] [id number] [place] [id number] August, Generalized anxiety disorder F41.1 and Major depressive disorder, recurrent episode with anxious distress F33.9 [place] [address] [address] [place] [id number] [place] [id number] August, Fibromyalgia M79.7 [place] [address] [address] [place] [id number] [place] [id number] Jul, Generalized anxiety disorder F41.1 and Major depressive disorder, recurrent episode with anxious distress F33.9 [place] [address] [address] [place] [id number] [place] [id number] Jul, Fibromyalgia M79.7 [place] [address] [place] [id number] [place] [id number] Jul, Generalized anxiety disorder F41.1 [place] [address] [address] [place] [id number] [place] [place] [address] May, [place] [id number] [place] [address] May, Hypothyroid E03.9 [place] [id number] [place] [address] 08 May, 2016 Chronic kidney disease, stage 4 (severe) N18.4 ; Hypothyroid E03.9 ; Restless leg G25.81 ; Fibromyalgia M79.7 ; Essential (primary) hypertension I10 ; Vitamin D deficiency E55.9 ; Dyspepsia R10.13 ; Acute non-recurrent maxillary sinusitis J01.00 ; Anemia in chronic kidney disease D63.1 ; Chronic kidney disease, unspecified N18.9 and Coronary artery disease involving turtle mountain coronary artery of turtle mountain heart, angina presence unspecified I25.10 [facility] [id number] [place] [address] 02 May, 2016 Vitamin D deficiency, unspecified E55.9 [facility] [id number] [place] [address] May, Generalized anxiety disorder F41.1 and Major depressive disorder, recurrent episode with anxious distress F33.9 [facility] [id number] [place] [address] Apr, Pain in right knee M25.561 and Pain in left knee M25.562 [facility] [id number] [place] [address] Apr, [facility] [id number] [place] [address] Apr, [facility] [id number] [place] [address] Apr, [facility] [id number] [place] [address] Mar, Generalized anxiety disorder F41.1 and Major depressive disorder, recurrent episode with anxious distress F33.9 [facility] [id number] [place] [address] Mar, Generalized anxiety disorder F41.1 and Major depressive disorder, recurrent episode with anxious distress F33.9 [facility] [address] [address] Mar, [facility] [id number] [place] [address] Mar, [facility] [id number] [place] [address] Mar, [facility] [address] [address] Mar, Asthma J45.909 and Fibromyalgia M79.7 [facility] [address] [address] Mar, Chronic kidney disease, stage 4 (severe) N18.4 ; Vitamin D deficiency E55.9 and Essential (primary) hypertension I10 [facility] [address] [address] Feb, [facility] [address] [address] Feb, Dysuria R30.0 ; Mixed stress and urge urinary incontinence N39.46 ; Fibromyalgia M79.7 and Chronic kidney disease, stage IV (severe) N18.4 [facility] [address] [address] Feb, Chronic kidney disease, stage 4 (severe) N18.4 [facility] [address] [address] Feb, Chronic kidney disease, stage 4 (severe) N18.4 [place] [address] [address] Feb, [facility] [address] [address] Feb, Vitamin D deficiency, unspecified E55.9 [facility] [address] [address] Jan, [facility] [address] [address] Jan, [facility] [address] [address] Dec, [facility] [address] [address] Dec, Chronic kidney disease, stage 4 (severe) N18.4 [facility] [address] [address] Dec, Dysthymic disorder F34.1 and Generalized anxiety disorder F41.1 [facility] [id number] [place] [address] Dec, [facility] [id number] [place] [address] Dec, [facility] [id number] [place] [address] Dec, Dysthymic disorder F34.1 and Generalized anxiety disorder F41.1 [facility] [id number] [place] [address] Dec, Dysuria R30.0 ; Chronic kidney disease, stage 4 (severe) N18.4 ; Hypertension I10 ; Dyspepsia R10.13 ; Yeast dermatitis B37.2 ; Palpitations R00.2 ; Hypothyroid E03.9 ; Functional diarrhea K59.1 and Other seasonal allergic rhinitis J30.2 [facility] [id number] [place] [address] Dec, [facility] [id number] [place] [address] Nov, Dysuria R30.0 and Stress incontinence N39.3 [facility] [id number] [place] [address] Nov, [facility] [id number] [place] [address] Nov, [facility] [id number] [place] [address] Nov, Osteoarthritis of knees, bilateral M17.0 [facility] [id number] [place] [address] Nov, Dysthymic disorder F34.1 and Generalized anxiety disorder F41.1 [place] [id number] [place] [address] Nov, [facility] [id number] [place] [address] Nov, [facility] [id number] [place] [address] Nov, Urgency of urination R39.15 [facility] [address] [address] Nov, [facility] [id number] [place] [address] Nov, Chronic kidney disease, stage 4 (severe) N18.4 [facility] [id number] [place] [address] Oct, Hypertension I10 ; Coronary artery disease involving turtle mountain coronary artery of turtle mountain heart, angina presence unspecified I25.10 ; Palpitations R00.2 ; Hypothyroid E03.9 ; Right foot pain M79.671 ; Functional diarrhea K59.1 and Other seasonal allergic rhinitis J30.2 [facility] [id number] [place] [address] Oct, Dysthymic disorder F34.1 and Generalized anxiety disorder F41.1 [facility] [id number] [place] [address] Sep, [facility] [id number] [place] [address] Sep, [facility] [id number] [place] [address] Sep, [facility] [id number] [place] [address] Sep, [facility] [id number] [place] [address] Sep, [facility] [id number] [place] [address] Sep, Dysthymic disorder F34.1 and Generalized anxiety disorder F41.1 [facility] [id number] [place] [address] 16 Sep, 2015 Asthma with acute exacerbation in adult J45.901 ; Dysuria R30.0 ; Chronic kidney disease, stage 4 (severe) N18.4 and History of anemia Z86.2 [facility] [id number] [place] [address] 2015 Generalized anxiety disorder F41.1 and Dysthymic disorder F34.1 [facility] [id number] [place] [address] August, Screening breast examination Z12.39 and Acute recurrent maxillary sinusitis J01.01 [facility] [id number] [place] [address] August, Osteoarthritis of knees, bilateral M17.0 [facility] [id number] [place] [address] August, Chronic kidney disease, stage 4 (severe) N18.4 ; Acute non-recurrent maxillary sinusitis J01.00 ; Urinary problem R39.89 ; Bowel habit changes R19.4 ; Functional diarrhea K59.1 and History of colon polyps Z86.010 [facility] [id number] [place] [address] Jul, Dysthymic disorder F34.1 and Generalized anxiety disorder F41.1 [place] [id number] [place] [address] Jul, [place] [id number] [place] [address] 18 Jul, 2015 Dysthymic disorder F34.1 ; Generalized anxiety disorder F41.1 and 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 [facility] [id number] [place] [address] Jul, [place] [address] [place] [address] Jun, [facility] [id number] [place] [address] Jun, [facility] [id number] [place] [address] May, [facility] [id number] [place] [address] May, Dysthymic disorder F34.1 and Generalized anxiety disorder F41.1 [facility] [id number] [place] [address] Apr, Kidney disease N28.9 [facility] [id number] [place] [address] Apr, Generalized anxiety disorder F41.1 and Dysthymic disorder F34.1 [place] [id number] [place] [address] Apr, Chronic kidney disease, stage 4 (severe) N18.4 [facility] [id number] [place] [address] Apr, Generalized anxiety disorder F41.1 ; Major depression, recurrent F33.9 and Sleep disturbance G47.9 [place] [id number] [place] [address] Mar, Generalized anxiety disorder F41.1 and Dysthymic disorder F34.1 [place] [id number] [place] [address] Mar, Generalized anxiety disorder F41.1 ; Dysthymic disorder F34.1 and Insomnia G47.00 [place] [id number] [place] [address] Mar, [facility] [id number] [place] [address] Mar, [facility] [address] [address] 17 Mar, 2015 Osteoarthritis of knees, bilateral M17.0 [place] [address] [address] Mar, Hypertension I10 ; Hypothyroid E03.9 ; Dysthymic disorder F34.1 ; Chronic kidney disease, stage 4 (severe) N18.4 and Nausea & vomiting R11.2 [place] [address] [address] Mar, Generalized anxiety disorder F41.1 ; Dysthymic disorder F34.1 and Insomnia G47.[address] [address] Mar, Dehydration E86.0 ; Chronic kidney disease, stage 4 (severe) N18.4 and Nausea & vomiting R11.2 [facility] [address] [address] Mar, Gastroenteritis K52.9 [place] [address] [address] Mar, [place] [address] [address] Mar, [place] [address] [address] Feb, Dysthymic disorder F34.1 and Generalized anxiety disorder F41.1 [facility] [address] [address] Jan, UTI (urinary tract infection) N39.0 ; Asthma J45.909 ; Coronary artery disease involving turtle [place] coronary artery of turtle mountain heart, angina presence unspecified I25.10 ; Hypertension I10 ; Hypothyroid E03.9 ; Vitamin D deficiency E55.9 ; Insomnia G47.00 ; Palpitations R00.2 ; Depressed F32.9 ; Restless leg G25.81 and Anxiety F41.9 [place] [address] [place] [address] Jan, Dysthymic disorder F34.1 and Generalized anxiety disorder F41.1 [place] [address] [address] Jan, [place] [id number] [place] [address] Dec, [facility] [address] [address] Dec, Alkalosis 276.3 ; Chronic kidney disease, Stage IV (severe) 585.4 ; Hyperpotassemia 276.7 ; Secondary hyperparathyroidism, renal 588.81 ; Proteinuria 791.0 ; Unspecified vitamin D deficiency 268.9 ; Anemia in chronic kidney disease 285.21 ; Other and unspecified hyperlipidemia 272.4 ; Hypertension, essential, benign 401.1 and Chronic kidney disease (CKD), stage III (moderate) 585.3 [facility] [id number] [place] [address] Dec, [facility] [address] [address] Dec, Depressive disorder, not elsewhere classified 311 and Generalized anxiety disorder 300.02 [place] [id number] [place] [address] 10 Dec, 2014 [place] [id number] [place] [address] 08 Dec, 2014 [place] [id number] [place] [address] Nov, Depressive disorder, not elsewhere classified 311 and Generalized anxiety disorder 300.[address] [address] Nov, Arthritis of both knees 716.96 [place] [id number] [place] [address] 07 Nov, 2014 PAF (paroxysmal atrial fibrillation) 427.31 ; CAD (coronary artery disease) 414.00 ; Chest pain 786.50 and Chronic kidney disease (CKD) stage G4/A1, severely decreased glomerular filtration rate (GFR) between 15-29 mL/min/1.73 square meter and albuminuria creatinine ratio less than 30 mg/g 585.4 [facility] [address] [place] [address] Oct, Coronary atherosclerosis of unspecified type of vessel, turtle mountain or graft 414.00 ; Chronic kidney disease, Stage IV (severe) 585.4 ; Hypertension 401.9 and Edema 782.3 [place] [id number] [place] [address] Oct, Depressive disorder, not elsewhere classified 311 and Generalized anxiety disorder 300.02 [place] [id number] [place] [address] Oct, Depressive disorder, not elsewhere classified 311 and Generalized anxiety disorder 300.02 [place] [id number] [place] [address] Oct, [facility] [id number] [place] [address] Oct, [place] [id number] [place] [address] Sep, [place] [id number] [place] [address] Sep, Chronic kidney disease, Stage IV (severe) 585.4 [facility] [id number] [place] [address] Sep, [facility] [id number] [place] [address] Sep, Coronary atherosclerosis of unspecified type of vessel, turtle mountain or graft 414.00 ; Hypertension 401.9 ; Edema 782.3 and Hypothyroidism 244.9 [facility] [id number] [place] [address] Sep, Coronary atherosclerosis of unspecified type of vessel, turtle [place] or graft 414.00 ; Hypertension 401.9 ; Fibromyalgia 729.1 ; Edema 782.3 ; Hypothyroidism 244.9 and Anemia 285.9 [facility] [address] [address] Sep, Anxiety disorder, unspecified 300.00 and Depressive disorder, not elsewhere classified 311 [facility] [address] [address] Sep, [facility] [address] [address] August, Generalized anxiety disorder 300.02 [facility] [address] [address] August, Closed fracture of lateral malleolus 824.2 [facility] [address] [address] Jul, [facility] [address] [address] Jul, [facility] [id number] [place] [address] Jun, [facility] [id number] [place] [address] Jun, [facility] [id number] [place] [address] Jun, [facility] [id number] [place] [address] Jun, [facility] [id number] [place] [address] Jun, [facility] [address] [address] Jun, [facility] [id number] [place] [address] May, [facility] [address] [address] 19 May, 2014 [facility] [place] [facility] [address] [id number] [place] [address] 18 May, 2014 [facility] [place] [facility] [address] [id number] [place] [address] 18 May, 2014 [facility] [place] [facility] [address] [id number] [place] [address] 16 May, 2014 [facility] [place] [facility] [address] [id number] [place] [address] 16 May, 2014 [facility] [place] [facility] [address] [id number] [place] [address] 13 May, 2014 [facility] [place] [facility] [address] [id number] [place] [address] 13 May, 2014 [facility] [place] [facility] [address] [facility] [id number] [place] [address] 10 May, 2014 [facility] [place] [facility] [address] [facility] [id number] [place] [address] 10 May, 2014 [facility] [place] [facility] [address] [id number] [place] [address] Apr, [facility] [place] [facility] [address] [facility] [id number] [place] [address] Apr, [facility] [place] [facility] [address] [id number] [place] [address] Mar, [facility] [place] [facility] [address] [id number] [place] [address] Mar, [facility] [place] [facility] [address] [id number] [place] [address] Mar, [facility] [place] [facility] [address] [id number] [place] [address] 15 Mar, 2014 [facility] [place] [facility] [address] [id number] [place] [address] 15 Mar, 2014 [facility] [place] [facility] [address] [id number] [place] [address] Mar, [facility] [place] [facility] [address] [id number] [place] [address] Mar, [facility] [place] [facility] [address] [id number] [place] [address] Feb, [facility] [place] [facility] [address] [id number] [place] [address] Feb, [facility] [place] [facility] [address] [id number] [place] [address] Feb, [facility] [place] [facility] [address] [id number] [place] [address] Jan, [facility] [place] [facility] [address] [id number] [place] [address] Jan, [facility] [place] [facility] [address] [id number] [place] [address] Jan, [facility] [place] [facility] [address] [id number] [place] [address] Jan, [facility] [place] [facility] [address] [id number] [place] [address] Jan, [facility] [place] [facility] [address] [id number] [place] [address] Jan, [facility] [place] [facility] [address] [id number] [address] Jan, [facility] [place] [facility] [address] [id number] [place] [address] Jan, [facility] [place] [facility] [address] [id number] [place] [address] Jan, [facility] [place] [facility] [address] [id number], [place] [address] Jan, [facility] [place] [facility] [address] [id number], [place] [address] Nov, [facility] [place] [facility] [address] [id number] [place] [address] Nov, [facility] [place] [facility] [address] [id number] [place] [address] Nov, [facility] [place] [facility] [address] [id number] [place] [address] Oct, [facility] [place] [facility] [address] [id number] [place] [address] Oct, [facility] [place] [facility] [address] [id number] [place] [address] Oct, [facility] [place] [facility] [address] [id number] [place] [address] Oct, [facility] [place] [facility] [address] [id number] [place] [address] Oct, [facility] [place] [facility] [address] [id number] [place] [address] Oct, [facility] [place] [facility] [address] [id number] [place] [address] Oct, [facility] [place] [facility] [address] [id number] [place] [address] Oct, [facility] [place] [facility] [address] [id number] [place] [address] Oct, [facility] [place] [facility] [address] [id number] [place] [address] Sep, [facility] [place] [facility] [address] [id number] [place] [address] Sep, [facility] [place] [facility] [address] [id number] [place] [address] Sep, [facility] [place] [facility] [address] [id number] [place] [address] Sep, [facility] [place] [facility] [address] [id number] [place] [address] Sep, [facility] [place] [facility] [address] [id number] [place] [address] Sep, [facility] [place] [facility] [address] [id number] [place] [address] Sep, [facility] [place] [facility] [address] [id number] [place] [address] Sep, [facility] [place] [facility] [address] [id number] [place] [address] Sep, [facility] [place] [facility] [address] [id number] [place] [address] August, [facility] [place] [facility] [address] [id number] [place] [address] August, [facility] [place] [facility] [address] [id number] [place] [address] August, [facility] [place] [facility] [address] [id number] [place] [address] August, [facility] [place] [facility] [address] [id number] [place] [address] August, [facility] [place] [facility] [address] [id number] [place] [address] August, [facility] [place] [facility] [address] [id number] [place] [address] Jul, [facility] [place] [facility] [address] [id number] [place] [address] Jul, [facility] [place] [facility] [address] [id number] [place] [address] Jul, [facility] [place] [facility] [address] [id number] [place] [address] Jul, [facility] [place] [facility] [address] [id number] [place] [address] Jul, [facility] [place] [facility] [address] [id number] [place] [address] Jul, [facility] [place] [facility] [address] [id number] [place] [address] Jun, [facility] [place] [facility] [address] [id number] [place] [address] Jun, [facility] [place] [facility] [address] [id number] [place] [address] May, [facility] [place] [facility] [address] [id number] [place] [address] May, [facility] [place] [facility] [address] [id number] [place] [address] May, [facility] [place] [facility] [address] [id number] [place] [address] May, [facility] [place] [facility] [address] [id number] [place] [address] Apr, [facility] [place] [facility] [address] [id number] [place] [address] Apr, [facility] [place] [facility] [address] [id number] [place] [address] Mar, [facility] [place] [facility] [address] [id number] [place] [address] 18 Mar, 2013 [facility] [place] [facility] [address] [id number] [place] [address] Mar, [facility] [place] [facility] [address] [id number] [place] [address] Mar, [facility] [place] [facility] [address] [id number] [place] [address] 05 Mar, 2013 [facility] [place] [facility] [address] [id number] [place] [address] Mar, [facility] [place] [facility] [address] [id number] [place] [address] Feb, [facility] [address] [id number] [place] [address] Feb, [facility] [place] [facility] [address] [id number] [place] [address] Feb, [facility] [place] [facility] [address] [id number] [place] [address] Feb, [facility] [place] [facility] [address] [id number] [place] [address] Feb, [facility] [place] [facility] [address] [id number] [place] [address] Feb, [facility] [place] [facility] [address] [id number] [place] [address] Jan, [facility] [place] [facility] [address] [id number] [place] [address] 24 Jan, 2013 [facility] [place] [facility] [address] [id number] [place] [address] Jan, [facility] [place] [facility] [address] [id number] [place] [address] Jan, [facility] [place] [facility] [address] [id number] [place] [address] 08 Jan, 2013 [facility] [place] [facility] [address] [id number] [place] [address] Jan, [facility] [place] [facility] [address] [id number] [place] [address] 12 Dec, 2012 [facility] [place] [facility] [address] [id number] [place] [address] Dec, [facility] [place] [facility] [address] [id number] [place] [address] Nov, [facility] [place] [facility] [address] [id number] [place] [address] Nov, [facility] [place] [facility] [address] [id number] [place] [address] Oct, [facility] [place] [facility] [address] [id number] [place] [address] Oct, [facility] [place] [facility] [address] [id number] [place] [address] Oct, [facility] [place] [facility] [address] [id number] [place] [address] Oct, [facility] [address] [id number] [place] [address] Oct, [facility] [place] [facility] [address] [id number] [place] [address] Oct, [facility] [address] [id number] [place] [address] Sep, [facility] [address] [id number] [place] [address] Sep, [facility] [address] [id number] [place] [address] Sep, [facility] [place] [facility] [address] [id number] [place] [address] Sep, [facility] [place] [facility] [address] [id number] [place] [address] August, [facility] [place] [facility] [address] [id number] [place] [address] August, [facility] [place] [facility] [address] [id number] [place] [address] August, [facility] [place] [facility] [address] [id number] [place] [address] August, [facility] [place] [facility] [address] [id number] [place] [address] August, [facility] [place] [facility] [address] [id number], [place] [address] Jul, [facility] [address] [id number] [place] [address] Jul, [facility] [address] [id number] [place] [address] Jul, [facility] [address] [id number] [place] [address] Jul, [facility] [address] [id number], [place] [address] Jul, [facility] [address] [id number] [place] [address] Jul, [facility] [address] [id number] [place] [address] Jul, [facility] [address] [id number], [place] [address] Jul, [facility] [address] [id number] [place] [address] Jul, [facility] [address] [id number], [place] [address] Jul, [facility] [address] [id number] [id number] Jun, [facility] [address] [id number], [place] [address] Jun, [facility] [place] [facility] [address] [id number], [place] [address] Jun, [facility] [address] [id number], [place] [address] Jun, [facility] [place] [facility] [address] [id number], [place] [address] Jun, [facility] [place] [facility] [address] [id number], [place] [address] May, [facility] [address] [id number] [place] [address] 18 May, 2012 [facility] [address] [id number] [place] [address] May, [facility] [address] [id number] [place] [address] Apr, [facility] [address] [id number] [place] [address] Apr, [facility] [address] [id number] [place] [address] Apr, [facility] [address] [id number] [place] [address] Apr, [facility] [address] [id number] [place] [address] Apr, [facility] [address] [id number] [place] [address] Apr, [facility] [address] [id number] [place] [address] Mar, [facility] [address] [id number] [place] [address] Mar, [facility] [address] [id number] [place] [address] Mar, [facility] [address] [id number] [place] [address] Mar, [facility] [address] [id number] [place] [address] Feb, [facility] [address] [id number] [place] [address] Feb, [facility] [address] [id number] [place] [address] Feb, [facility] [address] [id number] [place] [address] Feb, [facility] [place] [facility] [address] [id number] [place] [address] Feb, [facility] [place] [facility] [address] [id number] [place] [address] Feb, [facility] [place] [facility] [address] [id number] [place] [address] Feb, [facility] [place] [facility] [address] [id number] [place] [address] Feb, [facility] [place] [facility] [address] [id number] [place] [address] Feb, [facility] [place] [facility] [address] [id number] [place] [address] Feb, [facility] [place] [facility] [address] [id number] [place] [address] Feb, [facility] [place] [facility] [address] [id number], [place] [address] Feb, [facility] [place] [facility] [address] [id number], [place] [address] Feb, [facility] [place] [facility] [address] [facility] [id number], [place] [address] Feb, [facility] [place] [facility] [address] [facility] [id number], [place] [address] Feb, [facility] [place] [facility] [address] [id number], [place] [address] Feb, [facility] [place] [facility] [address] [id number], [place] [address] Jan, [facility] [place] [facility] [address] [id number], [place] [address] Jan, [facility] [place] [facility] [address] [facility] [id number], [place] [address] Jan, [facility] [place] [facility] [address] [id number], [place] [address] 31 Jan, 2012 [facility] [place] [facility] [address] [id number] [place] [address] 30 Jan, 2012 [facility] [place] [facility] [address] [facility] [id number], [place] [address] 25 Jan, 2012 [facility] [place] [facility] [address] [facility] [id number] [place] [address] 25 Jan, 2012 [facility] [place] [facility] [address] [id number] [place] [address] 16 Jan, 2012 [facility] [place] [facility] [address] [id number] [place] [address], [place] [address] 16 Jan, 2012 [facility] [place] [facility] [address] [facility] [id number] [place] [address] 15 Jan, 2012 [facility] [place] [facility] [address] [facility] [id number] [place] [address] 15 Jan, 2012 [facility] [place] [facility] [address] [facility] [id number] [place] [address] Jan, [facility] [place] [facility] [address] [facility] [id number] [place] [address] 26 Sep2011 [facility] [place] [facility] [address] [facility] [id number] [place] [address] 26 Sep, 2011 [facility] [place] [facility] [address] [facility] [id number], [place] [address] 24 Sep, 2011 [facility] [place] [facility] [address] [facility] [id number], [place] [address] 23 Sep, 2011 [facility] [place] [facility] [address] [id number] [place] [address] 22 Sep, 2011 [facility] [place] [facility] [address] [facility] [id number], [place] [address] 21 Sep, 2011 [facility] [place] [facility] [address] [facility] [id number], [place] [address] 20 Sep, 2011 [facility] [place] [facility] [address] [id number] [place] [address] 20 Dec, 2011 [facility] [place] [facility] [address] [id number] [facility] [place] [address] 07 Sep, 2011 [facility] [place] [facility] [address] [id number] [place] [address] 06 Sep, 2011 [facility] [place] [facility] [address] [id number] [place] [address] 06 Sep, 2011 [facility] [place] [facility] [address] [id number] [place] [address] 05 Dec, 2011 [facility] [place] [facility] [address] [id number] [place] [address] 23 Nov, 2011 [facility] [place] [facility] [address] [id number] [place] [address] 17 Nov, 2011 [facility] [place] [facility] [address] [id number] [place] [address] 13 Nov, 2011 [facility] [place] [facility] [address] [id number] [place] [address] Nov, [facility] [place] [facility] [address] [id number] [place] [address] Nov, [facility] [place] [facility] [address] [id number] [place] [address] Nov, [facility] [place] [facility] [address] [id number] [place] [address] Nov, [facility] [place] [facility] [address] [id number] [place] [address] Nov, [facility] [place] [facility] [address] [id number] [place] [address] Oct, [facility] [place] [facility] [address] [id number] [place] [address] Oct, [facility] [place] [facility] [address] [id number] [place] [address] Oct, [facility] [place] [facility] [address] [id number] [place] [address] Oct, [facility] [place] [facility] [address] [id number] [place] [address] Oct, [facility] [place] [facility] [address] [id number] [place] [address] Oct, [facility] [place] [facility] [address] [id number] [place] [address] Oct, [facility] [place] [facility] [address] [id number] [place] [address] Sep, [facility] [place] [facility] [address] [id number] [place] [address] Sep, [facility] [place] [facility] [address] [id number] [place] [address] August, [facility] [place] [facility] [address] [id number] [place] [address] August, [facility] [place] [facility] [address] [id number] [place] [address] August, [facility] [place] [facility] [address] [id number] [place] [address] August, [facility] [place] [facility] [address] [id number] [place] [address] Jul, [facility] [place] [facility] [address] [id number], [place] [address] Jul, [facility] [place] [facility] [address] [id number] [place] [address] Jul, [facility] [place] [facility] [address] [id number] [place] [address] Jul, [facility] [place] [facility] [address] [id number] [place] [address] Jul, [facility] [place] [facility] [address] [id number] [place] [address] 04 Jul, 2011 [facility] [address] [id number] [place] [address] Jul, [facility] [place] [facility] [address] [id number] [place] [address] Jul, [facility] [place] [facility] [address] [id number] [place] [address] Jul, [facility] [place] [facility] [address] [id number] [place] [address] 23 Jun, 2011 [facility] [place] [facility] [address] [id number] [place] [address] 19 Jun, 2011 [facility] [place] [facility] [address] [id number] [place] [address] 15 Jun, 2011 [facility] [place] [facility] [address] [facility] [id number] [place] [address] 14 Jun, 2011 [facility] [place] [facility] [address] [id number] [place] [address] 12 Jun, 2011 [facility] [place] [facility] [address] [id number] [place] [address] Jun, [facility] [place] [facility] [address] [facility] [id number] [place] [address] Jun, [facility] [place] [facility] [address] [id number] [place] [address] 25 May, 2011 [facility] [place] [facility] [address] [id number] [place] [address] 24 May, 2011 [facility] [place] [facility] [address] [id number] [place] [address] 16 May, 2011 [facility] [place] [facility] [address] [facility] [id number] [place] [address] 16 May, 2011 [facility] [place] [facility] [address] [facility] [id number] [place] [address] May, [facility] [address] [id number] [place] [address] Apr, [facility] [place] [facility] [address] [id number] [place] [address] Apr, [facility] [place] [facility] [address] [id number] [place] [address] Apr, [facility] [place] [facility] [address] [id number] [place] [address] Apr, [facility] [place] [facility] [address] [id number] [place] [address] Apr, [facility] [place] [facility] [address] [id number] [place] [address] Mar, [facility] [place] [facility] [address] [id number] [place] [address] Mar, [facility] [place] [facility] [address] [id number] [place] [address] Mar, [facility] [place] [facility] [address] [id number] [place] [address] Mar, [facility] [place] [facility] [address] [id number] [place] [address] Mar, [facility] [place] [facility] [address] [id number] [place] [address] Mar, [facility] [place] [facility] [address] [id number] [place] [address] Mar, [facility] [place] [facility] [address] [id number] [place] [address] Feb, [facility] [place] [facility] [address] [id number] [place] [address] Feb, [facility] [place] [facility] [address] [id number] [place] [address] Feb, [facility] [place] [facility] [address] [id number] [place] [address] Feb, [facility] [place] [facility] [address] [id number] [place] [address] 31 Jan, 2011 [facility] [place] [facility] [address] [id number] [place] [address] Jan, [facility] [place] [facility] [address] [id number] [place] [address] Jan, [facility] [place] [facility] [address] [id number] [place] [address] Jan, [facility] [place] [facility] [address] [id number] [place] [address], [place] [address] Nov, [facility] [place] [facility] [address] [id number] [place] [address] Mar, [facility] [place] [facility] [address] [id number] [place] [address] Mar, [facility] [place] [facility] [address] [id number] [place] [address] Mar, [facility] [place] [facility] [address] [id number] [place] [address] Mar, [facility] [place] [facility] [address] [id number] [place] [address] Mar, [facility] [place] [facility] [address] [id number] [place] [address] Mar, [facility] [place] [facility] [address] [id number] [place] [address] Feb, [facility] [place] [facility] [address] [id number] [place] [address] Feb, [facility] [place] [facility] [address] [id number] [place] [address] Jan, [facility] [place] [facility] [address] [id number] [place] [address] 14 Jan, 2009 [facility] [place] [facility] [address] [facility] [id number] [place] [address] 14 Jan, 2009 IMMUNIZATIONS No Known Immunizations SOCIAL HISTORY Never Assessed REASON FOR VISIT PLAN OF CARE VITAL SIGNS Height 63 in 2014-06-26 Weight 282.7 lbs 2014-06-26 Temperature 99.8 degrees Fahrenheit 2014-06-26 Heart Rate 80 bpm 2014-06-26 Respiratory Rate 24 2014-06-26 Blood pressure systolic 154 mmHg 2014-06-26 Blood pressure diastolic 92 mmHg 2014-06-26 MEDICATIONS Unknown Medications RESULTS No Results PROCEDURES [...] with transposition of median nerve at carpal tunnel- bilateral carpal tunnel surgery (summer of 2009) Surgical History Esophageal surgery-Dr. Cruz 06/2015 Surgical History Colonoscopy History of Polyps No Polyps on 2016 scope due to have repeat 2020 & 2007 Surgical History Bladder surgery [facility] 03/2016 Surgical History Neurotransmitter placed 10/2017 Surgical History retninal repair 12/31/2017 Surgical History cataract surgery 2018 Surgical History cataract surgery 2019 Surgical History SCS trial x7 days 2019 Hospitalization History Surgeries Only Hospitalization History 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 Hospitalization History sepsis, UTI, headache 08/03/2018-08/05/2018
--- OUTSIDE RECORDS SUMMARY | 2018-10-26 12:13 | XMS REPORT ---
Author Author Migration, Doctor Organization [facility] Address Unknown Phone Unavailable Care Team Providers Care Eyeglass Lens Generator Name Role Phone Migration, Doctor Unavailable Unavailable PROBLEMS Type Condition ICD9-CM Code FTR73-OL Code Onset Dates Condition Status SNOMED Code Problem Hypothyroid E03.9 Active 34563209 Problem Asthma J45.909 Active 968929137 Problem Insomnia G47.00 Active 521763158 Problem Depressed F32.9 Active 67462260 Problem Palpitations R00.2 Active 32724318 Problem Functional diarrhea K59.1 Active 69978327 Problem Chronic kidney disease, stage 4 (severe) N18.4 Active 558766076 Problem Degenerative tear of medial meniscus of left knee M23.204 Active 688320984 Problem Dysthymic disorder F34.1 Active 05015793 Problem Bipolar disorder, current episode manic without psychotic features F31.10 Active 447244437 Problem Generalized anxiety disorder F41.1 Active 89546577 Problem Restless leg G25.81 Active 10850059 Problem Coronary artery disease involving round [place] coronary artery of round [place] heart, angina presence unspecified I25.10 Active 8773137771555 Problem Hypokalemia E87.6 Active 08954787 Problem Other seasonal allergic rhinitis J30.2 Active 084402224 Problem Mixed stress and urge urinary incontinence N39.46 Active 142444563 Problem Fibromyalgia M79.7 Active 089551628 Problem Essential (primary) hypertension I10 Active 30807662 Problem Long-term use of high-risk medication Z79.899 Active 431350442 Problem Vitamin D deficiency E55.9 Active 87835600 Problem Anemia in chronic kidney disease D63.1 Active 855164020868730 Problem Low back pain M54.5 Active 943430304 Problem Chronic kidney disease, unspecified N18.9 Active 670951049 Problem Abnormal chest CT R93.8 Active 113892335 Problem Primary osteoarthritis of left knee M17.12 Active 075206014 Problem Mood disorder F39 Active 81258283 Problem Stage 3 chronic kidney disease N18.3 Active 354811506 Problem Perimenopausal vasomotor symptoms N95.1 Active 672823030 Problem Asthma with acute exacerbation in adult J45.901 Active 622118041 Problem Other chronic pain G89.29 Active 19486233 Problem History of colon polyps Z86.010 Active 714653223 Problem History of anemia Z86.2 Active 535723894 Problem Body mass index (BMI) of 40.0-44.9 in adult Z68.41 Active 000604673 Problem Seasonal allergic rhinitis due to pollen J30.1 Active 82823750 Problem Restless leg syndrome G25.81 Active 15239493 Problem Chronic pain syndrome G89.4 Active 342241903 ALLERGIES No Information ENCOUNTERS Encounter Location Date Diagnosis [place] [address] [address] Nov, [place] [address] [address] Oct, [place] [address] [address] Oct, [place] [address] [address] Sep, [place] [address] [address] Sep, Generalized anxiety disorder F41.1 and Major depressive disorder, recurrent episode with anxious distress F33.9 [place] [address] [place] [id number] [place] [address] 17 Sep, 2018 Chronic kidney disease, stage 4 (severe) N18.4 [facility] [address] [place] [id number] [place] [address] 2018 Fibromyalgia M79.7 and Chronic pain syndrome G89.4 [place] [address] [address] [address] [address] 11 Sep, 2018 Chronic pain syndrome G89.4 [place] [address] [address] Sep, [facility] [id number] [place] [address] Sep, Chronic pain syndrome G89.4 ; Fibromyalgia M79.7 and Morbid obesity E66.01 [facility] [address] [place] [id number] [place] [address] August, Generalized anxiety disorder F41.1 and Major depressive disorder, recurrent episode with anxious distress F33.9 [facility] [address] [place] [id number] [place] [address] August, Fibromyalgia M79.7 [facility] [address] [place] [id number] [place] [address] August, Restless leg syndrome G25.81 ; Vitamin D deficiency E55.9 ; Urinary tract infection without hematuria, site unspecified N39.0 ; Pain in right shoulder M25.511 ; Other chronic pain G89.29 ; Biceps tendinitis on right M75.21 and Morbid obesity E66.01 [facility] [id number] [place] [address] Jul, Urinary tract infection without hematuria, site unspecified N39.0 and Morbid obesity E66.01 [facility] [id number] [place] [address] Jul, [facility] [id number] [place] [address] Jul, [facility] [address] [place] [id number] [place] [address] Jul, Fibromyalgia M79.7 [facility] [id number] [place] [address] Jul, Acute pain of right shoulder M25.511 [facility] [id number] [place] [address] Jul, Acute pain of right shoulder M25.511 and Morbid obesity E66.01 [facility] [id number] [place] [address] Jun, [place] [address] [place] [id number] [place] [address] Jun, Generalized anxiety disorder F41.1 and Major depressive disorder, recurrent episode with anxious distress F33.9 [place] [address] [place] [id number] [place] [address] Jun, [place] [address] [place] [id number] [place] [address] Jun, Fibromyalgia M79.7 [facility] [address] [address] Jun, Acute pain of right shoulder M25.511 ; Acute pain of right hip M25.551 and Morbid obesity E66.01 [place] [address] [place] [id number] [place] [address] 11 May, 2018 Burning with urination R30.0 ; Vaginal discharge N89.8 ; Chronic kidney disease, stage 4 (severe) N18.4 ; Body mass index (BMI) of 40.0-44.9 in adult Z68.41 and Morbid obesity E66.01 [place] [address] [place] [id number] [place] [address] 07 May, 2018 Fibromyalgia M79.7 [place] [address] [place] [id number] [place] [address] May, Generalized anxiety disorder F41.1 and Major depressive disorder, recurrent episode with anxious distress F33.9 [place] [address] [place] [id number] [place] [address] Apr, [place] [address] [place] [id number] [place] [address] Apr, Fibromyalgia M79.7 [facility] [address] [place] [address] Mar, Acute UTI N39.0 and Dysuria R30.0 [facility] [id number] [place] [address] 10 Mar, 2018 Fibromyalgia M79.7 [facility] [address] [place] [id number] [place] [address] 15 Feb, 2018 [facility] [address] [place] [id number] [place] [address] Feb, [facility] [address] [place] [id number] [place] [address] Feb, [facility] [address] [place] [id number] [place] [address] Feb, Fibromyalgia M79.7 [facility] [address] [place] [id number] [place] [address] 08 Feb, 2018 Complicated UTI (urinary tract infection) N39.0 [facility] [address] [place] [id number] [place] [address] Feb, [facility] [address] [place] [id number] [place] [address] Jan, Generalized anxiety disorder F41.1 and Major depressive disorder, recurrent episode with anxious distress F33.9 [facility] [id number] [place] [address] Jan, Acute conjunctivitis of left eye, unspecified acute conjunctivitis type H10.32 [facility] [address] [place] [id number] [place] [address] Jan, [facility] [address] [place] [id number] [place] [address] Jan, Acute non-recurrent maxillary sinusitis J01.00 ; Dysuria R30.0 ; Perimenopausal vasomotor symptoms N95.1 and Fibromyalgia M79.7 [facility] [address] [place] [address] Dec, Vitamin D deficiency E55.9 [facility] [address] [place] [id number] [place] [address] Dec, Vitamin D deficiency E55.9 [place] [address] [address] 24 Dec, 2017 Vitamin D deficiency E55.9 [place] [address] [place] [id number] [place] [address] Dec, [place] [address] [address] Dec, Fibromyalgia M79.7 [place] [address] [address] Nov, [place] [address] [address] Nov, [place] [address] [address] Nov, [place] [address] [address] Nov, Fibromyalgia M79.7 ; Vision changes H53.9 ; Chest wall pain R07.89 and Chronic pain syndrome G89.4 [place] [address] [place] [id number] [place] [address] Nov, [place] [address] [place] [id number] [place] [address] Nov, Rash of hands R21 [place] [address] [address] Nov, Generalized anxiety disorder F41.1 and Major depressive disorder, recurrent episode with anxious distress F33.9 [place] [address] [address] Nov, Fibromyalgia M79.7 [place] [address] [place] [id number] [place] [address] Nov, Complicated UTI (urinary tract infection) N39.0 [place] [address] [place] [id number] [place] [address] Oct, [facility] [address] [address] Oct, Generalized anxiety disorder F41.1 and Major depressive disorder, recurrent episode with anxious distress F33.9 [facility] [address] [place] [id number] [place] [address] Oct, [facility] [address] [address] Oct, Fibromyalgia M79.7 [place] [address] [address] Sep, Restless leg syndrome G25.81 and Restless leg G25.81 [place] [address] [place] [id number] [place] [address] Sep, [place] [address] [address] Sep, Seasonal allergic rhinitis due to pollen J30.1 ; Screening for breast cancer Z12.31 ; Chest pain at rest R07.9 ; Restless leg syndrome G25.81 ; Essential (primary) hypertension I10 and Depressed F32.9 [facility] [address] [place] [id number] [place] [address] August, Fibromyalgia M79.7 [facility] [address] [place] [id number] [place] [address] August, [facility] [address] [place] [id number] [place] [address] August, [facility] [address] [address] August, Abnormal chest [address] R93.8 [facility] [address] [place] [id number] [place] [address] August, Generalized anxiety disorder F41.1 and Major depressive disorder, recurrent episode with anxious distress F33.9 [facility] [address] [place] [id number] [place] [address] August, Abnormal chest [address] R93.8 [place] [address] [place] [id number] [place] [address] Jul, [place] [address] [place] [id number] [place] [address] Jul, Chronic kidney disease, stage 4 (severe) N18.4 [facility] [address] [place] [id number] [place] [address] Jul, [place] [address] [address] Jul, Restless leg G25.81 ; Mixed stress and urge urinary incontinence N39.46 and Fibromyalgia M79.7 [place] [address] [place] [id number] [place] [address] Jul, Chronic kidney disease, stage 4 (severe) N18.4 [facility] [address] [place] [id number] [place] [address] Jun, Orthostatic hypotension I95.1 ; Chronic kidney disease, stage 4 (severe) N18.4 ; Chest wall discomfort R07.89 and Body mass index (BMI) of 40.0-44.9 in adult Z68.41 [place] [address] [place] [id number] [place] [address] Jun, [facility] [address] [place] [id number] [place] [address] Jun, Orthostatic hypotension I95.1 [place] [address] [place] [id number] [place] [address] Jun, [facility] [address] [place] [id number] [place] [address] Jun, Orthostatic hypotension I95.1 ; Dysuria R30.0 and Acute cystitis without hematuria N30.00 [place] [address] [address] Jun, [facility] [address] [place] [id number] [place] [address] Jun, Chronic kidney disease, stage 4 (severe) N18.4 [facility] [address] [place] [id number] [place] [address] Jun, Fibromyalgia M79.7 [facility] [address] [place] [id number] [place] [address] Jun, [facility] [address] [place] [id number] [place] [address] Jun, [facility] [address] [place] [id number] [place] [address] May, Ab[address] R93.8 and Stage 3 chronic kidney disease N18.3 [facility] [address] [place] [id number] [place] [address] May, Chronic kidney disease, stage 4 (severe) N18.4 [facility] [address] [place] [id number] [place] [address] May, Chronic kidney disease, stage 4 (severe) N18.4 [facility] [address] [place] [id number] [place] [address] May, Abnormal chest [address] R93.8 [facility] [address] [place] [id number] [place] [address] May, [facility] [address] [place] [id number] [place] [address] May, [facility] [address] [place] [id number] [place] [address] May, Generalized anxiety disorder F41.1 and Major depressive disorder, recurrent episode with anxious distress F33.9 [facility] [address] [place] [id number] [place] [address] May, Mood disorder F39 [facility] [address] [address] Apr, [facility] [address] [place] [address] Apr, Infected skin lesion L08.9 and Muscle strain of right shoulder region, initial encounter S46.911A [facility] [address] [place] [id number] [place] [address] Apr, Generalized anxiety disorder F41.1 and Major depressive disorder, recurrent episode with anxious distress F33.9 [place] [address] [place] [id number] [place] [address] Apr, [facility] [address] [place] [address] Apr, Recent urinary tract infection Z87.440 and Hypothyroid E03.9 [facility] [address] [place] [address] Apr, Generalized anxiety disorder F41.1 and Major depressive disorder, recurrent episode with anxious distress F33.9 [facility] [address] [place] [id number] [place] [address] Apr, Recent urinary tract infection Z87.440 [facility] [id number] [place] [address] Mar, [facility] [address] [place] [address] Mar, Dysuria R30.0 ; Acute cystitis without hematuria N30.00 and BMI 40.0- 44.9, adult Z68.41 [facility] [address] [place] [address] Mar, [facility] [id number] [place] [address] Mar, [facility] [address] [place] [id number] [place] [address] Mar, Generalized anxiety disorder F41.1 and Major depressive disorder, recurrent episode with anxious distress F33.9 [facility] [address] [place] [id number] [place] [address] Feb, Conjunctivitis, bacterial H10.9 [facility] [address] [place] [id number] [place] [address] Feb, [facility] [address] [address] Feb, Conjunctivitis, bacterial H10.9 [place] [address] [address] Feb, [facility] [address] [place] [id number] [place] [address] Feb, Dysuria R30.0 ; Acute cystitis N30.00 and BMI 40.0-44.9, adult Z68.41 [place] [address] [place] [id number] [place] [address] Feb, [place] [address] [address] Feb, Generalized anxiety disorder F41.1 and Major depressive disorder, recurrent episode with anxious distress F33.9 [place] [address] [place] [id number] [place] [address] Feb, Mood disorder F39 and BMI 40.0-44.9, adult Z68.41 [place] [address] [place] [id number] [place] [address] Jan, [place] [address] [address] Jan, [place] [address] [place] [id number] [place] [address] Jan, Hypothyroid E03.9 [place] [address] [place] [id number] [place] [address] Jan, [place] [address] [place] [id number] [place] [address] Jan, Chronic kidney disease, unspecified N18.9 ; Hypokalemia E87.6 ; Essential (primary) hypertension I10 ; Fibromyalgia M79.7 ; Coronary artery disease involving round [place] coronary artery of [place] heart, angina presence unspecified I25.10 ; Hypothyroid E03.9 and Encounter for immunization Z23 [place] [address] [place] [id number] [place] [address] Jan, Hypothyroid E03.9 [place] [address] [address] Jan, [place] [address] [place] [id number] [place] [address] Dec, Vitamin D deficiency E55.9 [place] [address] [place] [id number] [place] [address] 28 Dec, 2016 Primary osteoarthritis of left knee M17.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 [place] [address] [place] [id number] [place] [address] 19 Dec, 2016 Fibromyalgia M79.7 [place] [address] [place] [id number] [place] [address] 18 Dec, 2016 Mood disorder F39 [place] [address] [place] [id number] [place] [address] 13 Dec, 2016 [place] [address] [place] [id number] [place] [address] 13 Dec, 2016 Generalized anxiety disorder F41.1 and Major depressive disorder, recurrent episode with anxious distress F33.9 [place] [address] [place] [id number] [place] [address] 11 Dec, 2016 [place] [address] [place] [id number] [place] [address] 08 Dec, 2016 Streptococcal meningitis G00.2 [facility] [address] [facility] [id number] [address] 07 Dec, 2016 Streptococcal meningitis G00.2 [facility] [address] [facility] [id number] [address] 07 Dec, 2016 [facility] [address] [address] Dec, Streptococcal meningitis G00.2 [facility] [address] [address] Dec, [facility] [id number] [place] [address] Dec, Major depressive disorder, recurrent episode with anxious distress F33.9 [facility] [address] [address] Nov, Fever, unspecified fever cause R50.9 [facility] [address] [address] Nov, [facility] [id number] [place] [address] Nov, Hypothyroid E03.9 [facility] [id number] [place] [address] Nov, Generalized anxiety disorder F41.1 and Major depressive disorder, recurrent episode with anxious distress F33.9 [facility] [address] [address] Nov, [facility] [address] [id number] Oct, Dental examination Z01.20 [facility] [address] [address] Oct, Generalized anxiety disorder F41.1 and Major depressive disorder, recurrent episode with anxious distress F33.9 [facility] [id number] [place] [address] Oct, Chronic kidney disease, stage 4 (severe) N18.4 [place] [address] [address] Oct, [place] [address] [address] Oct, Fibromyalgia M79.7 [place] [address] [place] [id number] [place] [address] Oct, [place] [address] [place] [id number] [place] [address] Oct, Generalized anxiety disorder F41.1 ; Major depressive disorder, recurrent episode with anxious distress F33.9 and Bipolar disorder, current episode manic without psychotic features F31.10 [place] [address] [address] Sep, [place] [address] [place] [id number] [place] [address] Sep, [place] [address] [address] Sep, Vitamin D deficiency E55.9 [place] [address] [address] Sep, Vitamin D deficiency E55.9 [place] [address] [address] Sep, [place] [address] [address] Sep, Chronic kidney disease, stage 4 (severe) N18.4 ; Hypothyroid E03.9 ; Restless leg G25.81 ; Fibromyalgia M79.7 ; Essential (primary) hypertension I10 ; Vitamin D deficiency E55.9 ; Dyspepsia R10.13 ; Anemia in chronic kidney disease D63.1 ; Chronic kidney disease, unspecified N18.9 ; Coronary artery disease involving [place] coronary artery of [place] heart, angina presence unspecified I25.10 ; Screening breast examination Z12.39 and Low back pain M54.5 [place] [id number] [place] [id number] [place] [id number] August, Generalized anxiety disorder F41.1 and Major depressive disorder, recurrent episode with anxious distress F33.9 [place] [address] [place] [id number] [place] [id number] August, Generalized anxiety disorder F41.1 and Major depressive disorder, recurrent episode with anxious distress F33.9 [place] [address] [place] [id number] [place] [address] August, Fibromyalgia M79.7 [place] [address] [place] [id number] [place] [address] Jul, Generalized anxiety disorder F41.1 and Major depressive disorder, recurrent episode with anxious distress F33.9 [place] [address] [place] [id number] [place] [id number] Jul, Fibromyalgia M79.7 [place] [address] [place] [id number] [place] [address] Jul, Generalized anxiety disorder F41.1 [facility] [id number] [place] [address] May, [facility] [id number] [place] [address] May, Hypothyroid E03.9 [facility] [id number] [place] [address] May, Chronic kidney disease, stage 4 (severe) N18.4 ; Hypothyroid E03.9 ; Restless leg G25.81 ; Fibromyalgia M79.7 ; Essential (primary) hypertension I10 ; Vitamin D deficiency E55.9 ; Dyspepsia R10.13 ; Acute non-recurrent maxillary sinusitis J01.00 ; Anemia in chronic kidney disease D63.1 ; Chronic kidney disease, unspecified N18.9 and Coronary artery disease involving round valley coronary artery of round valley heart, angina presence unspecified I25.10 [facility] [id number] [place] [address] May, Vitamin D deficiency, unspecified E55.9 [facility] [id number] [place] [address] May, Generalized anxiety disorder F41.1 and Major depressive disorder, recurrent episode with anxious distress F33.9 [facility] [id number] [place] [address] Apr, Pain in right knee M25.561 and Pain in left knee M25.562 [facility] [id number] [place] [address] Apr, [facility] [id number] [place] [address] Apr, [facility] [id number] [place] [address] Apr, [facility] [id number] [place] [address] Mar, Generalized anxiety disorder F41.1 and Major depressive disorder, recurrent episode with anxious distress F33.9 [facility] [id number] [place] [address] Mar, Generalized anxiety disorder F41.1 and Major depressive disorder, recurrent episode with anxious distress F33.9 [facility] [id number] [place] [address] Mar, [facility] [id number] [place] [address] Mar, [facility] [id number] [place] [address] Mar, [facility] [id number] [place] [address] Mar, Asthma J45.909 and Fibromyalgia M79.7 [facility] [id number] [place] [address] Mar, Chronic kidney disease, stage 4 (severe) N18.4 ; Vitamin D deficiency E55.9 and Essential (primary) hypertension I10 [facility] [id number] [place] [address] Feb, [facility] [id number] [place] [address] Feb, Dysuria R30.0 ; Mixed stress and urge urinary incontinence N39.46 ; Fibromyalgia M79.7 and Chronic kidney disease, stage IV (severe) N18.4 [facility] [address] [address] Feb, Chronic kidney disease, stage 4 (severe) N18.4 [facility] [id number] [place] [address] Feb, Chronic kidney disease, stage 4 (severe) N18.4 [facility] [id number] [place] [address] Feb, [facility] [id number] [place] [address] Feb, Vitamin D deficiency, unspecified E55.9 [facility] [id number] [place] [address] Jan, [facility] [id number] [place] [address] Jan, [facility] [id number] [place] [address] Dec, [facility] [id number] [place] [address] Dec, Chronic kidney disease, stage 4 (severe) N18.4 [facility] [id number] [place] [address] Dec, Dysthymic disorder F34.1 and Generalized anxiety disorder F41.1 [facility] [id number] [place] [address] Dec, [facility] [address] [address] Dec, [facility] [address] [address] Dec, Dysthymic disorder F34.1 and Generalized anxiety disorder F41.1 [facility] [address] [address] Dec, Dysuria R30.0 ; Chronic kidney disease, stage 4 (severe) N18.4 ; Hypertension I10 ; Dyspepsia R10.13 ; Yeast dermatitis B37.2 ; Palpitations R00.2 ; Hypothyroid E03.9 ; Functional diarrhea K59.1 and Other seasonal allergic rhinitis J30.2 [facility] [address] [address] Dec, [facility] [address] [address] Nov, Dysuria R30.0 and Stress incontinence N39.3 [facility] [id number] [place] [address] Nov, [facility] [id number] [place] [address] Nov, [facility] [address] [address] Nov, Osteoarthritis of knees, bilateral M17.0 [facility] [address] [address] Nov, Dysthymic disorder F34.1 and Generalized anxiety disorder F41.1 [facility] [id number] [place] [address] Nov, [facility] [address] [address] Nov, [facility] [id number] [place] [address] Nov, Urgency of urination R39.15 [facility] [id number] [place] [address] Nov, [facility] [id number] [place] [address] Nov, Chronic kidney disease, stage 4 (severe) N18.4 [facility] [id number] [place] [address] Oct, Hypertension I10 ; Coronary artery disease involving round valley coronary artery of round valley heart, angina presence unspecified I25.10 ; Palpitations R00.2 ; Hypothyroid E03.9 ; Right foot pain M79.671 ; Functional diarrhea K59.1 and Other seasonal allergic rhinitis J30.2 [facility] [id number] [place] [address] Oct, Dysthymic disorder F34.1 and Generalized anxiety disorder F41.1 [facility] [id number] [place] [address] Sep, [facility] [id number] [place] [address] Sep, [facility] [id number] [place] [address] Sep, [facility] [id number] [place] [address] Sep, [facility] [id number] [place] [address] Sep, [facility] [id number] [place] [address] Sep, Dysthymic disorder F34.1 and Generalized anxiety disorder F41.1 [facility] [id number] [place] [address] 16 Sep, 2015 Asthma with acute exacerbation in adult J45.901 ; Dysuria R30.0 ; Chronic kidney disease, stage 4 (severe) N18.4 and History of anemia Z86.2 [facility] [id number] [place] [address] 2015 Generalized anxiety disorder F41.1 and Dysthymic disorder F34.1 [facility] [address] [address] August, Screening breast examination Z12.39 and Acute recurrent maxillary sinusitis J01.01 [facility] [address] [address] August, Osteoarthritis of knees, bilateral M17.0 [facility] [id number] [place] [address] August, Chronic kidney disease, stage 4 (severe) N18.4 ; Acute non-recurrent maxillary sinusitis J01.00 ; Urinary problem R39.89 ; Bowel habit changes R19.4 ; Functional diarrhea K59.1 and History of colon polyps Z86.010 [facility] [address] [address] Jul, Dysthymic disorder F34.1 and Generalized anxiety disorder F41.1 [facility] [id number] [place] [address] Jul, [facility] [id number] [place] [address] Jul, Dysthymic disorder F34.1 ; Generalized anxiety disorder F41.1 and long-term use of drug Z79.899 [facility] [id number] [place] [address] Jul, [facility] [id number] [place] [address] Jun, [facility] [address] [address] Jun, [facility] [id number] [place] [address] May, [facility] [id number] [place] [address] May, Dysthymic disorder F34.1 and Generalized anxiety disorder F41.1 [facility] [id number] [place] [address] Apr, Kidney disease N28.9 [facility] [id number] [place] [address] Apr, Generalized anxiety disorder F41.1 and Dysthymic disorder F34.1 [facility] [id number] [place] [address] Apr, Chronic kidney disease, stage 4 (severe) N18.4 [facility] [id number] [place] [address] Apr, Generalized anxiety disorder F41.1 ; Major depression, recurrent F33.9 and Sleep disturbance G47.9 [facility] [id number] [place] [address] Mar, Generalized anxiety disorder F41.1 and Dysthymic disorder F34.1 [facility] [id number] [place] [address] Mar, Generalized anxiety disorder F41.1 ; Dysthymic disorder F34.1 and Insomnia G47.00 [facility] [id number] [place] [address] Mar, [facility] [id number] [place] [address] Mar, [facility] [id number] [place] [address] Mar, Osteoarthritis of knees, bilateral M17.0 [facility] [id number] [place] [address] Mar, Hypertension I10 ; Hypothyroid E03.9 ; Dysthymic disorder F34.1 ; Chronic kidney disease, stage 4 (severe) N18.4 and Nausea & vomiting R11.2 [facility] [id number] [place] [address] Mar, Generalized anxiety disorder F41.1 ; Dysthymic disorder F34.1 and Insomnia G47.00 [facility] [address] [address] Mar, Dehydration E86.0 ; Chronic kidney disease, stage 4 (severe) N18.4 and Nausea & vomiting R11.2 [facility] [id number] [place] [address] 08 Mar, 2015 Gastroenteritis K52.[address] [address] Mar, [facility] [address] [address] Mar, [address] [address] Feb, Dysthymic disorder F34.1 and Generalized anxiety disorder F41.1 [place] [id number] [place] [address] Jan, UTI (urinary tract infection) N39.0 ; Asthma J45.909 ; Coronary artery disease involving round valley coronary artery of round valley heart, angina presence unspecified I25.10 ; Hypertension I10 ; Hypothyroid E03.9 ; Vitamin D deficiency E55.9 ; Insomnia G47.00 ; Palpitations R00.2 ; Depressed F32.9 ; Restless leg G25.81 and Anxiety F41.9 [place] [id number] [place] [address] Jan, Dysthymic disorder F34.1 and Generalized anxiety disorder F41.1 [facility] [id number] [place] [address] 07 Jan, 2015 [facility] [id number] [place] [address] Dec, [facility] [id number] [place] [address] 28 Dec, 2014 Alkalosis 276.3 ; Chronic kidney disease, Stage IV (severe) 585.4 ; Hyperpotassemia 276.7 ; Secondary hyperparathyroidism, renal 588.81 ; Proteinuria 791.0 ; Unspecified vitamin D deficiency 268.9 ; Anemia in chronic kidney disease 285.21 ; Other and unspecified hyperlipidemia 272.4 ; Hypertension, essential, benign 401.1 and Chronic kidney disease (CKD), stage III (moderate) 585.3 [facility] [id number] [place] [address] 16 Dec, [address] [address] Dec, Depressive disorder, not elsewhere classified 311 and Generalized anxiety disorder 300.02 [facility] [id number] [place] [address] Dec, [facility] [id number] [place] [address] Dec, [facility] [id number] [place] [address] Nov, Depressive disorder, not elsewhere classified 311 and Generalized anxiety disorder 300.02 [facility] [id number] [place] [address] Nov, Arthritis of both knees 716.[address] [address] 07 Nov, 2014 PAF (paroxysmal atrial fibrillation) 427.31 ; CAD (coronary artery disease) 414.00 ; Chest pain 786.50 and Chronic kidney disease (CKD) stage G4/A1, severely decreased glomerular filtration rate (GFR) between 15-29 mL/min/1.73 square meter and albuminuria creatinine ratio less than 30 mg/g 585.4 [place] [id number] [place] [address] Oct, Coronary atherosclerosis of unspecified type of vessel, round valley or graft 414.00 ; Chronic kidney disease, Stage IV (severe) 585.4 ; Hypertension 401.9 and Edema 782.[address] [address] Oct, Depressive disorder, not elsewhere classified 311 and Generalized anxiety disorder 300.02 [place] [address] Oct, Depressive disorder, not elsewhere classified 311 and Generalized anxiety disorder 300.02 [place] [id number] [place] [address] Oct, [address] [address] Oct, [address] [address] Sep, [address] [address] Sep, Chronic kidney disease, Stage IV (severe) 585.4 [place] [id number] [place] [address] Sep, [address] [address] Sep, Coronary atherosclerosis of unspecified type of vessel, round valley or graft 414.00 ; Hypertension 401.9 ; Edema 782.3 and Hypothyroidism 244.9 [place] [id number] [place] [address] Sep, Coronary atherosclerosis of unspecified type of vessel, round valley or graft 414.00 ; Hypertension 401.9 ; Fibromyalgia 729.1 ; Edema 782.3 ; Hypothyroidism 244.9 and Anemia 285.9 [address] [address] Sep, Anxiety disorder, unspecified 300.00 and Depressive disorder, not elsewhere classified 311 [facility] [id number] [address] Sep, [facility] [id number] [place] [address] August, Generalized anxiety disorder 300.02 [facility] [id number] [place] [address] August, Closed fracture of lateral malleolus 824.2 [facility] [id number] [place] [address] Jul, [facility] [id number] [address] Jul, [facility] [id number] [place] [address] Jun, [facility] [address] [address] Jun, [facility] [id number] [address] Jun, [facility] [address] [address] Jun, [facility] [address] [address] Jun, [facility] [address] [address] Jun, [facility] [address] [address] May, [facility] [address] [address] May, [facility] [address] [address] May, 2014 [facility] [place] [facility] [address] [id number] [place] [address] 18 May, 2014 [facility] [place] [facility] [address] [id number] [place] [address] 16 May, 2014 [facility] [place] [facility] [address] [facility] [id number] [place] [address] 16 May, 2014 [facility] [place] [facility] [address] [id number] [place] [address] 13 May, 2014 [facility] [place] [facility] [address] [id number] [place] [address] 13 May, 2014 [facility] [place] [facility] [address] [facility] [id number] [place] [address] 10 May, 2014 [facility] [place] [facility] [address] [facility] [id number] [place] [address] 10 May, 2014 [facility] [place] [facility] [address] [facility] [id number] [place] [address] Apr, [facility] [place] [facility] [address] [facility] [id number] [place] [address] Apr, [facility] [place] [facility] [address] [facility] [id number] [place] [address] Mar, [facility] [place] [facility] [address] [facility] [id number] [place] [address] Mar, [facility] [place] [facility] [address] [facility] [id number] [place] [address] Mar, [facility] [place] [facility] [address] [id number] [place] [address] 15 Mar, 2014 [facility] [place] [facility] [address] [facility] [id number] [place] [address] 15 Mar, 2014 [facility] [place] [facility] [address] [facility] [id number] [place] [address] 15 Mar, 2014 [facility] [place] [facility] [address] [id number] [place] [address] Mar, [facility] [place] [facility] [address] [id number] [place] [address] Feb, [facility] [place] [facility] [address] [id number] [place] [address] Feb, [facility] [place] [facility] [address] [id number] [place] [address] Feb, [facility] [place] [facility] [address] [id number] [place] [address] Jan, [facility] [place] [facility] [address] [id number] [place] [address] Jan, [facility] [place] [facility] [address] [id number] [place] [address] Jan, [facility] [place] [facility] [address] [id number] [place] [address] Jan, [facility] [place] [facility] [address] [id number] [place] [address] Jan, [facility] [place] [facility] [address] [id number] [place] [address] Jan, [facility] [place] [facility] [address] [id number] [place] [address] Jan, [facility] [place] [facility] [address] [id number] [place] [address] Jan, [facility] [place] [facility] [address] [id number] [place] [address] Jan, [facility] [place] [facility] [address] [id number] [place] [address] Jan, [facility] [place] [facility] [address] [id number] [place] [address] Nov, [facility] [place] [facility] [address] [id number] [place] [address] Nov, [facility] [place] [facility] [address] [id number] [place] [address] Nov, [facility] [place] [facility] [address] [id number] [place] [address] Oct, [facility] [place] [facility] [address] [id number] [place] [address] Oct, [facility] [place] [facility] [address] [id number] [place] [address] Oct, [facility] [place] [facility] [address] [id number] [place] [address] Oct, [facility] [place] [facility] [address] [id number] [place] [address] Oct, [facility] [place] [facility] [address] [id number] [place] [address] Oct, [facility] [place] [facility] [address] [id number] [place] [address] Oct, [facility] [place] [facility] [address] [id number] [place] [address] Oct, [facility] [place] [facility] [address] [id number] [place] [address] Oct, [facility] [place] [facility] [address] [id number] [place] [address] Sep, [facility] [place] [facility] [address] [id number] [place] [address] Sep, [facility] [place] [facility] [address] [id number] [place] [address] Sep, [facility] [place] [facility] [address] [id number] [place] [address] Sep, [facility] [place] [facility] [address] [id number] [place] [address] Sep, [facility] [place] [facility] [address] [id number] [place] [address] Sep, [facility] [place] [facility] [address] [id number] [place] [address] Sep, [facility] [place] [facility] [address] [id number] [place] [address] Sep, [facility] [place] [facility] [address] [id number] [place] [address] Sep, [facility] [place] [facility] [address] [id number] [place] [address] August, [facility] [place] [facility] [address] [id number] [place] [address] August, [facility] [place] [facility] [address] [id number] [place] [address] August, [facility] [place] [facility] [address] [id number] [place] [address] August, [facility] [place] [facility] [address] [id number] [place] [address] August, [facility] [place] [facility] [address] [id number] [place] [address] August, [facility] [place] [facility] [address] [id number] [place] [address] Jul, [facility] [place] [facility] [address] [id number] [place] [address] Jul, [facility] [place] [facility] [address] [id number] [place] [address] Jul, [facility] [place] [facility] [address] [id number] [place] [address] Jul, [facility] [place] [facility] [address] [id number] [place] [address] Jul, [facility] [place] [facility] [address] [id number] [place] [address] Jul, [facility] [place] [facility] [address] [id number] [place] [address] Jun, [facility] [place] [facility] [address] [id number] [place] [address] Jun, [facility] [place] [facility] [address] [id number] [place] [address] May, [facility] [place] [facility] [address] [id number] [place] [address] May, [facility] [place] [facility] [address] [id number] [place] [address] May, [facility] [place] [facility] [address] [id number] [place] [address] May, [facility] [place] [facility] [address] [id number] [place] [address] Apr, [facility] [place] [facility] [address] [id number] [place] [address] Apr, [facility] [place] [facility] [address] [id number] [place] [address] Mar, [facility] [place] [facility] [address] [id number] [place] [address] Mar, [facility] [place] [facility] [address] [facility] [id number] [place] [address] Mar, [facility] [place] [facility] [address] [id number] [address] Mar, [facility] [place] [facility] [address] [id number] [place] [address] Mar, [facility] [place] [facility] [address] [id number] [place] [address] Mar, [facility] [place] [facility] [address] [facility] [id number] [place] [address] Feb, [facility] [place] [facility] [address] [id number] [address] Feb, [facility] [place] [facility] [address] [id number] [place] [address] Feb, [facility] [place] [facility] [address] [id number] [place] [address] Feb, [facility] [place] [facility] [address] [id number] [place] [address] Feb, [facility] [place] [facility] [address] [id number] [place] [address] Feb, [facility] [place] [facility] [address] [id number] [place] [address] Jan, [facility] [place] [facility] [address] [id number] [place] [address] Jan, [facility] [place] [facility] [address] [facility] [id number] [place] [address] Jan, [facility] [place] [facility] [address] [id number] [place] [address] Jan, [facility] [place] [facility] [address] [facility] [facility] [id number] [place] [address] Jan, [facility] [place] [facility] [address] [facility] [id number] [place] [address] Jan, [facility] [place] [facility] [address] [id number] [place] [address] Dec, [facility] [place] [facility] [address] [id number] [place] [address] Dec, [facility] [place] [facility] [address] [id number] [place] [address] Nov, [facility] [place] [facility] [address] [id number] [place] [address] Nov, [facility] [place] [facility] [address] [facility] [id number] [place] [address] Oct, [facility] [place] [facility] [address] [id number] [place] [address] Oct, [facility] [address] [id number] [place] [address] Oct, [facility] [place] [facility] [address] [id number] [place] [address] Oct, [facility] [place] [facility] [address] [id number] [place] [address] Oct, [facility] [place] [facility] [address] [id number] [place] [address] Oct, [facility] [place] [facility] [address] [id number] [place] [address] Sep, [facility] [place] [facility] [address] [id number] [place] [address] Sep, [facility] [place] [facility] [address] [id number] [place] [address] Sep, [facility] [address] [id number] [place] [address] Sep, [facility] [place] [facility] [address] [id number] [place] [address] August, [facility] [place] [facility] [address] [id number] [place] [address] August, [facility] [place] [facility] [address] [id number] [place] [address] August, [facility] [place] [facility] [address] [id number] [place] [address] August, [facility] [place] [facility] [address] [id number] [place] [address] August, [facility] [place] [facility] [address] [id number] [place] [address] Jul, [facility] [place] [facility] [address] [id number] [place] [address] Jul, [facility] [place] [facility] [address] [id number] [place] [address] Jul, [facility] [place] [facility] [address] [id number] [place] [address] Jul, [facility] [place] [facility] [address] [id number] [place] [address] Jul, [facility] [place] [facility] [address] [id number] [place] [address] Jul, [facility] [place] [facility] [address] [id number] [place] [address] Jul, [facility] [place] [facility] [address] [id number] [place] [address] Jul, [facility] [place] [facility] [address] [id number] [place] [address] Jul, [facility] [place] [facility] [address] [id number] [place] [address] Jul, [facility] [address] [facility] [id number] [id number] Jun, [facility] [place] [facility] [address] [id number] [address] Jun, [facility] [place] [facility] [address] [id number] [place] [address] Jun, [facility] [place] [facility] [address] [id number] [address] Jun, [facility] [place] [facility] [address] [id number] [place] [address] Jun, [facility] [place] [facility] [address] [id number] [place] [address] May, [facility] [place] [facility] [address] [id number] [place] [address] May, [facility] [place] [facility] [address] [id number] [address] 07 May, 2012 [facility] [address] [id number] [place] [address] Apr, [facility] [address] [id number] [place] [address] Apr, [facility] [address] [facility] [id number] [place] [address] Apr, [facility] [address] [id number] [place] [address] Apr, [facility] [address] [facility] [id number] [place] [address] Apr, [facility] [address] [facility] [id number] [place] [address] Apr, [facility] [address] [id number] [place] [address] Mar, [facility] [address] [id number] [place] [address] Mar, [facility] [address] [id number] [place] [address] Mar, [facility] [address] [facility] [id number] [place] [address] Mar, [facility] [address] [id number] [place] [address] Feb, [facility] [place] [facility] [address] [id number] [place] [address] Feb, [facility] [place] [facility] [address] [id number] [place] [address] Feb, [facility] [place] [facility] [address] [facility] [id number] [place] [address] Feb, [facility] [address] [id number] [address] Feb, [facility] [place] [facility] [address] [id number] [place] [address] Feb, [facility] [place] [facility] [address] [id number] [place] [address] Feb, [facility] [place] [facility] [address] [id number] [place] [address] Feb, [facility] [place] [facility] [address] [id number] [place] [address] Feb, [facility] [place] [facility] [address] [id number] [place] [address] Feb, [facility] [place] [facility] [address] [id number] [place] [address] Feb, [facility] [place] [facility] [address] [id number] [place] [address] Feb, [facility] [place] [facility] [address] [id number] [place] [address] Feb, [facility] [place] [facility] [address] [id number] [place] [address] Feb, [facility] [place] [facility] [address] [id number] [place] [address] Feb, [facility] [place] [facility] [address] [id number] [place] [address] Feb, [facility] [place] [facility] [address] [id number] [place] [address] Jan, [facility] [place] [facility] [address] [id number] [place] [address] Jan, [facility] [place] [facility] [address] [id number] [place] [address] Jan, [facility] [place] [facility] [address] [id number] [place] [address] Jan, [facility] [place] [facility] [address] [id number] [place] [address] 30 Jan, 2012 [facility] [place] [facility] [address] [id number] [place] [address] Jan, [facility] [place] [facility] [address] [id number] [place] [address] Jan, [facility] [place] [facility] [address] [id number] [place] [address] Jan, [facility] [place] [facility] [address] [id number] [place] [address] 16 Jan, 2012 [facility] [place] [facility] [address] [id number] [place] [address] Jan, [facility] [place] [facility] [address] [id number] [place] [address] Jan, [facility] [place] [facility] [address] [id number] [place] [address] Jan, [facility] [place] [facility] [address] [id number] [address] 26 Sep2011 [facility] [place] [facility] [address] [id number] [place] [address] 26 Sep2011 [facility] [place] [facility] [address] [id number] [address] 24 Sep2011 [facility] [place] [facility] [address] [id number] [place] [address] 23 Sep, 2011 [facility] [place] [facility] [address] [id number] [address] 22 Sep, 2011 [facility] [place] [facility] [address] [id number] [place] [address] 21 Sep2011 [facility] [place] [facility] [address] [facility] [id number] [address] 20 Sep, 2011 [facility] [place] [facility] [address] [id number] [place] [address] 20 Dec, 2011 [facility] [place] [facility] [address] [id number] [place] [address] 07 Sep, 2011 [facility] [place] [facility] [address] [id number] [place] [address] 06 Sep, 2011 [facility] [place] [facility] [address] [id number] [place] [address] 06 Dec, 2011 [facility] [place] [facility] [address] [id number] [place] [address] 05 Dec, 2011 [facility] [place] [facility] [address] [id number] [place] [address] 23 Nov, 2011 [facility] [place] [facility] [address] [id number] [place] [address] 17 Nov, 2011 [facility] [place] [facility] [address] [id number] [place] [address] 13 Nov, 2011 [facility] [place] [facility] [address] [id number] [place] [address] Nov, [facility] [place] [facility] [address] [id number] [place] [address] 08 Nov, 2011 [facility] [place] [facility] [address] [id number] [place] [address] Nov, [facility] [place] [facility] [address] [id number] [place] [address] Nov, [facility] [place] [facility] [address] [id number] [place] [address] Nov, [facility] [place] [facility] [address] [id number] [place] [address] Oct, [facility] [place] [facility] [address] [id number] [place] [address] Oct, [facility] [place] [facility] [address] [id number] [place] [address] Oct, [facility] [place] [facility] [address] [id number] [place] [address] Oct, [facility] [place] [facility] [address] [id number] [place] [address] Oct, [facility] [place] [facility] [address] [id number] [place] [address] Oct, [facility] [address] [id number] [place] [address] Oct, [facility] [place] [facility] [address] [id number] [place] [address] Sep, [facility] [address] [id number] [place] [address] Sep, [facility] [place] [facility] [address] [id number] [place] [address] August, [facility] [address] [id number] [place] [address] August, [facility] [address] [id number] [place] [address] August, [facility] [address] [id number] [place] [address] August, [facility] [address] [id number] [place] [address] Jul, [facility] [place] [facility] [address] [id number] [place] [address] Jul, [facility] [place] [facility] [address] [id number] [place] [address] Jul, [facility] [place] [facility] [address] [id number] [place] [address] Jul, [facility] [place] [facility] [address] [id number] [place] [address] Jul, [facility] [place] [facility] [address] [id number] [place] [address] Jul, [facility] [place] [facility] [address] [id number] [place] [address] Jul, [facility] [address] [id number] [place] [address] Jul, [facility] [place] [facility] [address] [id number] [place] [address] Jul, [facility] [place] [facility] [address] [id number] [place] [address] 23 Jun, 2011 [facility] [place] [facility] [address] [id number] [place] [address] 19 Jun, 2011 [facility] [place] [facility] [address] [id number] [place] [address] 15 Jun, 2011 [facility] [place] [facility] [address] [id number] [place] [address] 14 Jun, 2011 [facility] [address] [facility] [id number] [place] [address] Jun, [facility] [place] [facility] [address] [id number] [place] [address] Jun, [facility] [place] [facility] [address] [id number] [place] [address] Jun, [facility] [place] [facility] [address] [facility] [id number] [place] [address] May, [facility] [place] [facility] [address] [id number] [place] [address] 24 May, 2011 [facility] [place] [facility] [address] [id number] [place] [address] May, [facility] [place] [facility] [address] [id number] [place] [address] May, [facility] [place] [facility] [address] [id number] [place] [address] May, [facility] [place] [facility] [address] [facility] [id number] [place] [address] Apr, [facility] [place] [facility] [address] [id number] [place] [address] Apr, [facility] [place] [facility] [address] [id number] [place] [address] Apr, [facility] [place] [facility] [address] [id number] [place] [address] Apr, [facility] [place] [facility] [address] [id number] [place] [address] Apr, [facility] [place] [facility] [address] [id number] [place] [address] Mar, [facility] [place] [facility] [address] [id number] [place] [address] Mar, [facility] [place] [facility] [address] [id number] [place] [address] Mar, [facility] [place] [facility] [address] [id number] [place] [address] Mar, [facility] [place] [facility] [address] [id number] [place] [address] Mar, [facility] [place] [facility] [address] [id number] [place] [address] Mar, [facility] [place] [facility] [address] [id number] [place] [address] Mar, [facility] [place] [facility] [address] [id number] [place] [address] Feb, [facility] [place] [facility] [address] [id number] [place] [address] Feb, [facility] [place] [facility] [address] [id number] [place] [address] Feb, [facility] [place] [facility] [address] [id number] [place] [address] Feb, [facility] [place] [facility] [address] [id number] [place] [address] 31 Jan, 2011 [facility] [address] [id number] [place] [address] Jan, [facility] [address] [id number] [address] Jan, [facility] [address] [facility] [id number] [place] [address] Jan, [facility] [address] [id number] [place] [address] Nov, [facility] [address] [id number] [place] [address] Mar, [facility] [address] [facility] [id number] [place] [address] Mar, [facility] [address] [facility] [id number] [place] [address] Mar, [facility] [address] [facility] [id number] [place] [address] Mar, [facility] [address] [facility] [id number] [place] [address] Mar, [facility] [address] [facility] [id number] [place] [address] Mar, [facility] [address] [facility] [id number] [place] [address] Feb, [facility] [address] [facility] [id number] [place] [address] Feb, [facility] [address] [facility] [id number] [place] [address] Jan, [facility] [address] [facility] [id number] [place] [address] Jan, [facility] [address] [facility] [id number] [place] [address] Jan, IMMUNIZATIONS No Known Immunizations SOCIAL HISTORY [...] at carpal tunnel- bilateral carpal tunnel surgery (summer) Surgical History Esophageal surgery-Dr. 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
--- OUTSIDE RECORDS SUMMARY | 2018-10-26 12:14 | XMS REPORT ---
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 Name Role Phone Migration, Doctor Unavailable Unavailable PROBLEMS Type Condition ICD9-CM Code [id number] Code Onset Dates Condition Status SNOMED Code Problem Hypothyroid E03.9 Active 63982735 Problem Asthma J45.909 Active 033130634 Problem Insomnia G47.00 Active 439602970 Problem Depressed F32.9 Active 74183567 Problem Palpitations R00.2 Active 01339693 Problem Functional diarrhea K59.1 Active 27184001 Problem Chronic kidney disease, stage 4 (severe) N18.4 Active 022474862 Problem Degenerative tear of medial meniscus of left knee M23.204 Active 628945738 Problem Dysthymic disorder F34.1 Active 14550712 Problem Bipolar disorder, current episode manic without psychotic features F31.10 Active 295690300 Problem Generalized anxiety disorder F41.1 Active 94723958 Problem Restless leg G25.81 Active 90400162 Problem Coronary artery disease involving [place] coronary artery of [place] heart, angina presence unspecified I25.10 Active 7671140982472 Problem Hypokalemia E87.6 Active 62744500 Problem Other seasonal allergic rhinitis J30.2 Active 728788748 Problem Mixed stress and urge urinary incontinence N39.46 Active 999899773 Problem Fibromyalgia M79.7 Active 760240497 Problem Essential (primary) hypertension I10 Active 42382910 Problem Long-term use of high-risk medication Z79.899 Active 908006969 Problem Vitamin D deficiency E55.9 Active 77214310 Problem Anemia in chronic kidney disease D63.1 Active 165497513742016 Problem Low back pain M54.5 Active 153451887 Problem Chronic kidney disease, unspecified N18.9 Active 609182144 Problem Abnormal chest CT R93.8 Active 726600491 Problem Primary osteoarthritis of left knee M17.12 Active 398159703 Problem Mood disorder F39 Active 12245836 Problem Stage 3 chronic kidney disease N18.3 Active 944329482 Problem Perimenopausal vasomotor symptoms N95.1 Active 799474474 Problem Asthma with acute exacerbation in adult J45.901 Active 408106299 Problem Other chronic pain G89.29 Active 14887364 Problem History of colon polyps Z86.010 Active 194861568 Problem History of anemia Z86.2 Active 688462443 Problem Body mass index (BMI) of 40.0-44.9 in adult Z68.41 Active 355002971 Problem Seasonal allergic rhinitis due to pollen J30.1 Active 25717807 Problem Restless leg syndrome G25.81 Active 38161248 Problem Chronic pain syndrome G89.4 Active 550024956 ALLERGIES No Information ENCOUNTERS Encounter Location Date Diagnosis [place] [address] [address] Nov, [place] [address] [address] Oct, [place] [address] [address] Oct, [place] [address] [address] Sep, [place] [address] [address] Sep, Generalized anxiety disorder F41.1 and Major depressive disorder, recurrent episode with anxious distress F33.9 [place] [address] [place] [id number] [place] [address] 17 Sep, 2018 Chronic kidney disease, stage 4 (severe) N18.4 [facility] [address] [place] [id number] [place] [address] 2018 Fibromyalgia M79.7 and Chronic pain syndrome G89.4 [place] [address] [address] [address] [address] 11 Sep, 2018 Chronic pain syndrome G89.4 [place] [address] [address] Sep, [facility] [address] [place] [address] Sep, Chronic pain syndrome G89.4 ; Fibromyalgia M79.7 and Morbid obesity E66.01 [facility] [address] [place] [id number] [place] [address] August, Generalized anxiety disorder F41.1 and Major depressive disorder, recurrent episode with anxious distress F33.9 [facility] [address] [place] [id number] [place] [address] August, Fibromyalgia M79.7 [facility] [address] [place] [id number] [place] [address] August, Restless leg syndrome G25.81 ; Vitamin D deficiency E55.9 ; Urinary tract infection without hematuria, site unspecified N39.0 ; Pain in right shoulder M25.511 ; Other chronic pain G89.29 ; Biceps tendinitis on right M75.21 and Morbid obesity E66.01 [facility] [address] [place] [address] Jul, Urinary tract infection without hematuria, site unspecified N39.0 and Morbid obesity E66.01 [facility] [address] [place] [address] Jul, [facility] [id number] [place] [address] Jul, [facility] [address] [place] [id number] [place] [address] Jul, Fibromyalgia M79.7 [facility] [address] [place] [address] Jul, Acute pain of right shoulder M25.511 [facility] [address] [place] [address] Jul, Acute pain of right shoulder M25.511 and Morbid obesity E66.01 [facility] [address] [place] [address] Jun, [place] [address] [place] [id number] [place] [address] Jun, Generalized anxiety disorder F41.1 and Major depressive disorder, recurrent episode with anxious distress F33.9 [place] [address] [place] [id number] [place] [address] Jun, [place] [address] [place] [id number] [place] [address] Jun, Fibromyalgia M79.7 [facility] [address] [address] Jun, Acute pain of right shoulder M25.511 ; Acute pain of right hip M25.551 and Morbid obesity E66.01 [place] [address] [place] [id number] [place] [address] 11 May, 2018 Burning with urination R30.0 ; Vaginal discharge N89.8 ; Chronic kidney disease, stage 4 (severe) N18.4 ; Body mass index (BMI) of 40.0-44.9 in adult Z68.41 and Morbid obesity E66.01 [place] [address] [place] [id number] [place] [address] 07 May, 2018 Fibromyalgia M79.7 [place] [address] [place] [id number] [place] [address] May, Generalized anxiety disorder F41.1 and Major depressive disorder, recurrent episode with anxious distress F33.9 [place] [address] [place] [id number] [place] [address] Apr, [place] [address] [place] [id number] [place] [address] Apr, Fibromyalgia M79.7 [facility] [address] [place] [address] Mar, Acute UTI N39.0 and Dysuria R30.0 [facility] [address] [place] [address] 10 Mar, 2018 Fibromyalgia M79.7 [facility] [address] [place] [id number] [place] [address] 15 Feb, 2018 [facility] [address] [place] [id number] [place] [address] Feb, [facility] [address] [place] [id number] [place] [address] Feb, [facility] [address] [place] [id number] [place] [address] Feb, Fibromyalgia M79.7 [facility] [address] [place] [id number] [place] [address] 08 Feb, 2018 Complicated UTI (urinary tract infection) N39.0 [facility] [address] [place] [id number] [place] [address] Feb, [facility] [address] [place] [id number] [place] [address] Jan, Generalized anxiety disorder F41.1 and Major depressive disorder, recurrent episode with anxious distress F33.9 [facility] [id number] [place] [address] Jan, Acute conjunctivitis of left eye, unspecified acute conjunctivitis type H10.32 [facility] [address] [place] [id number] [place] [address] Jan, [facility] [address] [place] [id number] [place] [address] Jan, Acute non-recurrent maxillary sinusitis J01.00 ; Dysuria R30.0 ; Perimenopausal vasomotor symptoms N95.1 and Fibromyalgia M79.7 [facility] [address] [place] [address] Dec, Vitamin D deficiency E55.9 [facility] [address] [place] [id number] [place] [address] Dec, Vitamin D deficiency E55.9 [place] [address] [address] 24 Dec, 2017 Vitamin D deficiency E55.9 [place] [address] [place] [id number] [place] [address] Dec, [place] [address] [address] Dec, Fibromyalgia M79.7 [place] [address] [address] Nov, [place] [address] [address] Nov, [place] [address] [address] Nov, [place] [address] [address] Nov, Fibromyalgia M79.7 ; Vision changes H53.9 ; Chest wall pain R07.89 and Chronic pain syndrome G89.4 [place] [address] [place] [id number] [place] [address] Nov, [place] [address] [place] [id number] [place] [address] Nov, Rash of hands R21 [place] [address] [address] Nov, Generalized anxiety disorder F41.1 and Major depressive disorder, recurrent episode with anxious distress F33.9 [place] [address] [address] Nov, Fibromyalgia M79.7 [place] [address] [place] [id number] [place] [address] Nov, Complicated UTI (urinary tract infection) N39.0 [place] [address] [place] [id number] [place] [address] Oct, [facility] [address] [address] Oct, Generalized anxiety disorder F41.1 and Major depressive disorder, recurrent episode with anxious distress F33.9 [facility] [address] [place] [id number] [place] [address] Oct, [facility] [address] [address] Oct, Fibromyalgia M79.7 [place] [address] [address] Sep, Restless leg syndrome G25.81 and Restless leg G25.81 [place] [address] [place] [id number] [place] [address] Sep, [place] [address] [address] Sep, Seasonal allergic rhinitis due to pollen J30.1 ; Screening for breast cancer Z12.31 ; Chest pain at rest R07.9 ; Restless leg syndrome G25.81 ; Essential (primary) hypertension I10 and Depressed F32.9 [facility] [address] [place] [id number] [place] [address] August, Fibromyalgia M79.7 [facility] [address] [place] [id number] [place] [address] August, [facility] [address] [place] [id number] [place] [address] August, [facility] [address] [address] August, Abnormal chest [address] R93.8 [facility] [address] [place] [id number] [place] [address] August, Generalized anxiety disorder F41.1 and Major depressive disorder, recurrent episode with anxious distress F33.9 [facility] [address] [place] [id number] [place] [address] August, Abnormal chest [address] R93.8 [place] [address] [place] [id number] [place] [address] Jul, [place] [address] [place] [id number] [place] [address] Jul, Chronic kidney disease, stage 4 (severe) N18.4 [facility] [address] [place] [id number] [place] [address] Jul, [place] [address] [address] Jul, Restless leg G25.81 ; Mixed stress and urge urinary incontinence N39.46 and Fibromyalgia M79.7 [place] [address] [place] [id number] [place] [address] Jul, Chronic kidney disease, stage 4 (severe) N18.4 [facility] [address] [place] [id number] [place] [address] Jun, Orthostatic hypotension I95.1 ; Chronic kidney disease, stage 4 (severe) N18.4 ; Chest wall discomfort R07.89 and Body mass index (BMI) of 40.0-44.9 in adult Z68.41 [place] [address] [place] [id number] [place] [address] Jun, [facility] [address] [place] [id number] [place] [address] Jun, Orthostatic hypotension I95.1 [place] [address] [place] [id number] [place] [address] Jun, [facility] [address] [place] [id number] [place] [address] Jun, Orthostatic hypotension I95.1 ; Dysuria R30.0 and Acute cystitis without hematuria N30.00 [place] [address] [address] Jun, [facility] [address] [place] [id number] [place] [address] Jun, Chronic kidney disease, stage 4 (severe) N18.4 [facility] [address] [place] [id number] [place] [address] Jun, Fibromyalgia M79.7 [facility] [address] [place] [id number] [place] [address] Jun, [facility] [address] [place] [id number] [place] [address] Jun, [facility] [address] [place] [id number] [place] [address] May, Abnormal chest [address] R93.8 and Stage 3 chronic kidney disease N18.3 [facility] [address] [place] [id number] [place] [address] May, Chronic kidney disease, stage 4 (severe) N18.4 [facility] [address] [place] [id number] [place] [address] May, Chronic kidney disease, stage 4 (severe) N18.4 [facility] [address] [place] [id number] [place] [address] May, Abnormal chest [address] R93.8 [facility] [address] [place] [id number] [place] [address] May, [facility] [address] [place] [id number] [place] [address] May, [facility] [address] [place] [id number] [place] [address] May, Generalized anxiety disorder F41.1 and Major depressive disorder, recurrent episode with anxious distress F33.9 [facility] [address] [place] [id number] [place] [address] May, Mood disorder F39 [facility] [address], [place] [address] Apr, [facility] [address] [place] [address] Apr, Infected skin lesion L08.9 and Muscle strain of right shoulder region, initial encounter S46.911A [facility] [address] [place] [id number] [place] [address] Apr, Generalized anxiety disorder F41.1 and Major depressive disorder, recurrent episode with anxious distress F33.9 [place] [address] [place] [id number] [place] [address] Apr, [facility] [address] [place] [address] Apr, Recent urinary tract infection Z87.440 and Hypothyroid E03.9 [facility] [address] [place] [address] Apr, Generalized anxiety disorder F41.1 and Major depressive disorder, recurrent episode with anxious distress F33.9 [facility] [address] [place] [id number] [place] [address] Apr, Recent urinary tract infection Z87.440 [facility] [address] [place] [address] Mar, [facility] [address] [place] [address] Mar, Dysuria R30.0 ; Acute cystitis without hematuria N30.00 and BMI 40.0- 44.9, adult Z68.41 [facility] [address] [place] [address] Mar, [facility] [address] [place] [address] Mar, [facility] [address] [place] [id number] [place] [address] Mar, Generalized anxiety disorder F41.1 and Major depressive disorder, recurrent episode with anxious distress F33.9 [facility] [address] [place] [id number] [place] [address] Feb, Conjunctivitis, bacterial H10.9 [facility] [address] [place] [id number] [place] [address] Feb, [facility] [address] [address] Feb, Conjunctivitis, bacterial H10.9 [place] [address] [address] Feb, [facility] [address] [place] [id number] [place] [address] Feb, Dysuria R30.0 ; Acute cystitis N30.00 and BMI 40.0-44.9, adult Z68.41 [place] [address] [place] [id number] [place] [address] Feb, [place] [address] [address] Feb, Generalized anxiety disorder F41.1 and Major depressive disorder, recurrent episode with anxious distress F33.9 [place] [address] [place] [id number] [place] [address] Feb, Mood disorder F39 and BMI 40.0-44.9, adult Z68.41 [place] [address] [place] [id number] [place] [address] Jan, [place] [address] [address] Jan, [place] [address] [place] [id number] [place] [address] Jan, Hypothyroid E03.9 [place] [address] [place] [id number] [place] [address] Jan, [place] [address] [place] [id number] [place] [address] Jan, Chronic kidney disease, unspecified N18.9 ; Hypokalemia E87.6 ; Essential (primary) hypertension I10 ; Fibromyalgia M79.7 ; Coronary artery disease involving [place] coronary artery of [place] heart, angina presence unspecified I25.10 ; Hypothyroid E03.9 and Encounter for immunization Z23 [place] [address] [place] [id number] [place] [address] Jan, Hypothyroid E03.9 [place] [address] [address] Jan, [place] [address] [place] [id number] [place] [address] Dec, Vitamin D deficiency E55.9 [place] [address] [place] [id number] [place] [address] 28 Dec, 2016 Primary osteoarthritis of left knee M17.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 [place] [address] [place] [id number] [place] [address] 19 Dec, 2016 Fibromyalgia M79.7 [place] [address] [place] [id number] [place] [address] 18 Dec, 2016 Mood disorder F39 [place] [address] [place] [id number] [place] [address] 13 Dec, 2016 [place] [address] [place] [id number] [place] [address] 13 Dec, 2016 Generalized anxiety disorder F41.1 and Major depressive disorder, recurrent episode with anxious distress F33.9 [place] [address] [place] [id number] [place] [address] 11 Dec, 2016 [place] [address] [place] [id number] [place] [address] 08 Dec, 2016 Streptococcal meningitis G00.2 [facility] [address] [facility] [id number] [address] 07 Dec, 2016 Streptococcal meningitis G00.2 [facility] [address] [facility] [id number] [address] 07 Dec, 2016 [facility] [address], [place] [address] Dec, Streptococcal meningitis G00.2 [facility] [address], [place] [address] Dec, [facility] [id number] [place] [address] Dec, Major depressive disorder, recurrent episode with anxious distress F33.9 [facility] [address], [place] [address] Nov, Fever, unspecified fever cause R50.9 [facility] [address], [place] [address] Nov, [facility] [address] [place] [address] Nov, Hypothyroid E03.9 [facility] [id number] [place] [address] Nov, Generalized anxiety disorder F41.1 and Major depressive disorder, recurrent episode with anxious distress F33.9 [facility] [address], [place] [address] Nov, [facility] [address] [id number] Oct, Dental examination Z01.20 [facility] [address], [place] [address] Oct, Generalized anxiety disorder F41.1 and Major depressive disorder, recurrent episode with anxious distress F33.9 [facility] [address] [place] [address] Oct, Chronic kidney disease, stage 4 (severe) N18.4 [place] [address], [place] [address] Oct, [place] [address], [place] [address] Oct, Fibromyalgia M79.7 [place] [address] [place] [id number] [place] [address] Oct, [place] [address] [place] [id number] [place] [address] Oct, Generalized anxiety disorder F41.1 ; Major depressive disorder, recurrent episode with anxious distress F33.9 and Bipolar disorder, current episode manic without psychotic features F31.10 [place] [address], [place] [address] Sep, [place] [address] [place] [id number] [place] [address] Sep, [place] [address], [place] [address] Sep, Vitamin D deficiency E55.9 [place] [address], [place] [address] Sep, Vitamin D deficiency E55.9 [place] [address], [place] [address] Sep, [place] [address], [place] [address] Sep, Chronic kidney disease, stage 4 (severe) N18.4 ; Hypothyroid E03.9 ; Restless leg G25.81 ; Fibromyalgia M79.7 ; Essential (primary) hypertension I10 ; Vitamin D deficiency E55.9 ; Dyspepsia R10.13 ; Anemia in chronic kidney disease D63.1 ; Chronic kidney disease, unspecified N18.9 ; Coronary artery disease involving [place] coronary artery of [place] heart, angina presence unspecified I25.10 ; Screening breast examination Z12.39 and Low back pain M54.5 [place] [id number] [place] [id number] [place] [id number] August, Generalized anxiety disorder F41.1 and Major depressive disorder, recurrent episode with anxious distress F33.9 [place] [address] [place] [id number] [place] [id number] August, Generalized anxiety disorder F41.1 and Major depressive disorder, recurrent episode with anxious distress F33.9 [place] [address] [place] [id number] [place] [address] August, Fibromyalgia M79.7 [place] [address] [place] [id number] [place] [id number] Jul, Generalized anxiety disorder F41.1 and Major depressive disorder, recurrent episode with anxious distress F33.9 [place] [id number] [place] [address] Jul, Fibromyalgia M79.7 [place] [id number] [place] [address] Jul, Generalized anxiety disorder F41.1 [place] [id number] [place] [address] May, [place] [id number] [place] [address] May, Hypothyroid E03.9 [place] [id number] [place] [address] May, Chronic kidney disease, stage 4 (severe) N18.4 ; Hypothyroid E03.9 ; Restless leg G25.81 ; Fibromyalgia M79.7 ; Essential (primary) hypertension I10 ; Vitamin D deficiency E55.9 ; Dyspepsia R10.13 ; Acute non-recurrent maxillary sinusitis J01.00 ; Anemia in chronic kidney disease D63.1 ; Chronic kidney disease, unspecified N18.9 and Coronary artery disease involving [place] coronary artery of [place] heart, angina presence unspecified I25.10 [facility] [id number] [place] [address] May, Vitamin D deficiency, unspecified E55.9 [facility] [id number] [place] [address] May, Generalized anxiety disorder F41.1 and Major depressive disorder, recurrent episode with anxious distress F33.9 [facility] [id number] [place] [address] Apr, Pain in right knee M25.561 and Pain in left knee M25.562 [place] [id number] [place] [address] Apr, [facility] [id number] [place] [address] Apr, [place] [id number] [place] [address] Apr, [facility] [id number] [place] [address] Mar, Generalized anxiety disorder F41.1 and Major depressive disorder, recurrent episode with anxious distress F33.9 [place] [id number] [place] [address] Mar, Generalized anxiety disorder F41.1 and Major depressive disorder, recurrent episode with anxious distress F33.9 [facility] [id number] [place] [address] Mar, [facility] [id number] [place] [address] Mar, [facility] [id number] [place] [address] Mar, [facility] [id number] [place] [address] Mar, Asthma J45.909 and Fibromyalgia M79.7 [facility] [id number] [place] [address] Mar, Chronic kidney disease, stage 4 (severe) N18.4 ; Vitamin D deficiency E55.9 and Essential (primary) hypertension I10 [facility] [id number] [place] [address] Feb, [facility] [id number] [place] [address] Feb, Dysuria R30.0 ; Mixed stress and urge urinary incontinence N39.46 ; Fibromyalgia M79.7 and Chronic kidney disease, stage IV (severe) N18.4 [place] [address] [address] Feb, Chronic kidney disease, stage 4 (severe) N18.4 [place] [id number] [place] [address] Feb, Chronic kidney disease, stage 4 (severe) N18.4 [place] [id number] [place] [address] Feb, [place] [id number] [place] [address] Feb, Vitamin D deficiency, unspecified E55.9 [facility] [id number] [place] [address] Jan, [facility] [id number] [place] [address] Jan, [facility] [id number] [place] [address] Dec, [facility] [id number] [place] [address] Dec, Chronic kidney disease, stage 4 (severe) N18.4 [facility] [id number] [place] [address] Dec, Dysthymic disorder F34.1 and Generalized anxiety disorder F41.1 [facility] [id number] [place] [address] Dec, [facility] [address] [address] Dec, [place] [address] [address] Dec, Dysthymic disorder F34.1 and Generalized anxiety disorder F41.1 [place] [address] [address] Dec, Dysuria R30.0 ; Chronic kidney disease, stage 4 (severe) N18.4 ; Hypertension I10 ; Dyspepsia R10.13 ; Yeast dermatitis B37.2 ; Palpitations R00.2 ; Hypothyroid E03.9 ; Functional diarrhea K59.1 and Other seasonal allergic rhinitis J30.2 [facility] [address] [address] Dec, [facility] [address] [address] Nov, Dysuria R30.0 and Stress incontinence N39.3 [place] [id number] [place] [address] Nov, [place] [id number] [place] [address] Nov, [place] [address] [address] Nov, Osteoarthritis of knees, bilateral M17.0 [place] [address] [address] Nov, Dysthymic disorder F34.1 and Generalized anxiety disorder F41.1 [place] [id number] [place] [address] Nov, [place] [address] [address] Nov, [facility] [id number] [place] [address] Nov, Urgency of urination R39.15 [facility] [id number] [place] [address] Nov, [place] [id number] [place] [address] Nov, Chronic kidney disease, stage 4 (severe) N18.4 [place] [id number] [place] [address] Oct, Hypertension I10 ; Coronary artery disease involving [place] coronary artery of [place] heart, angina presence unspecified I25.10 ; Palpitations R00.2 ; Hypothyroid E03.9 ; Right foot pain M79.671 ; Functional diarrhea K59.1 and Other seasonal allergic rhinitis J30.2 [place] [id number] [place] [address] Oct, Dysthymic disorder F34.1 and Generalized anxiety disorder F41.1 [place] [id number] [place] [address] Sep, [place] [id number] [place] [address] Sep, [place] [id number] [place] [address] Sep, [facility] [id number] [place] [address] Sep, [place] [id number] [place] [address] Sep, [facility] [id number] [place] [address] Sep, Dysthymic disorder F34.1 and Generalized anxiety disorder F41.1 [place] [id number] [place] [address] 16 Sep, 2015 Asthma with acute exacerbation in adult J45.901 ; Dysuria R30.0 ; Chronic kidney disease, stage 4 (severe) N18.4 and History of anemia Z86.2 [place] [id number] [place] [address] 2015 Generalized anxiety disorder F41.1 and Dysthymic disorder F34.1 [place] [address] [address] August, Screening breast examination Z12.39 and Acute recurrent maxillary sinusitis J01.01 [place] [address] [address] August, Osteoarthritis of knees, bilateral M17.0 [place] [id number] [place] [address] August, Chronic kidney disease, stage 4 (severe) N18.4 ; Acute non-recurrent maxillary sinusitis J01.00 ; Urinary problem R39.89 ; Bowel habit changes R19.4 ; Functional diarrhea K59.1 and History of colon polyps Z86.010 [place] [address] [address] Jul, Dysthymic disorder F34.1 and Generalized anxiety disorder F41.1 [place] [id number] [place] [address] Jul, [place] [id number] [place] [address] Jul, Dysthymic disorder F34.1 ; Generalized anxiety disorder F41.1 and care home use of drug Z79.899 [place] [id number] [place] [address] Jul, [place] [id number] [place] [address] Jun, [place] [address] [address] Jun, [facility] [id number] [place] [address] May, [place] [id number] [place] [address] May, Dysthymic disorder F34.1 and Generalized anxiety disorder F41.1 [place] [id number] [place] [address] Apr, Kidney disease N28.9 [place] [id number] [place] [address] Apr, Generalized anxiety disorder F41.1 and Dysthymic disorder F34.1 [place] [id number] [place] [address] Apr, Chronic kidney disease, stage 4 (severe) N18.4 [place] [id number] [place] [address] Apr, Generalized anxiety disorder F41.1 ; Major depression, recurrent F33.9 and Sleep disturbance G47.9 [place] [id number] [place] [address] Mar, Generalized anxiety disorder F41.1 and Dysthymic disorder F34.1 [place] [id number] [place] [address] Mar, Generalized anxiety disorder F41.1 ; Dysthymic disorder F34.1 and Insomnia G47.00 [place] [id number] [place] [address] Mar, [place] [id number] [place] [address] Mar, [place] [id number] [place] [address] Mar, Osteoarthritis of knees, bilateral M17.0 [place] [id number] [place] [address] Mar, Hypertension I10 ; Hypothyroid E03.9 ; Dysthymic disorder F34.1 ; Chronic kidney disease, stage 4 (severe) N18.4 and Nausea & vomiting R11.2 [place] [id number] [place] [address] Mar, Generalized anxiety disorder F41.1 ; Dysthymic disorder F34.1 and Insomnia G47.00 [place] [address] [address] Mar, Dehydration E86.0 ; Chronic kidney disease, stage 4 (severe) N18.4 and Nausea & vomiting R11.2 [facility] [id number] [place] [address] 08 Mar, 2015 Gastroenteritis K52.[address] [address] Mar, [place] [address] [address] Mar, [address] [address] Feb, Dysthymic disorder F34.1 and Generalized anxiety disorder F41.1 [place] [id number] [place] [address] Jan, UTI (urinary tract infection) N39.0 ; Asthma J45.909 ; Coronary artery disease involving [place] coronary artery of [place] heart, angina presence unspecified I25.10 ; Hypertension I10 ; Hypothyroid E03.9 ; Vitamin D deficiency E55.9 ; Insomnia G47.00 ; Palpitations R00.2 ; Depressed F32.9 ; Restless leg G25.81 and Anxiety F41.9 [place] [id number] [place] [address] Jan, Dysthymic disorder F34.1 and Generalized anxiety disorder F41.1 [place] [id number] [place] [address] 07 Jan, 2015 [place] [id number] [place] [address] Dec, [place] [id number] [place] [address] 28 Dec, 2014 Alkalosis 276.3 ; Chronic kidney disease, Stage IV (severe) 585.4 ; Hyperpotassemia 276.7 ; Secondary hyperparathyroidism, renal 588.81 ; Proteinuria 791.0 ; Unspecified vitamin D deficiency 268.9 ; Anemia in chronic kidney disease 285.21 ; Other and unspecified hyperlipidemia 272.4 ; Hypertension, essential, benign 401.1 and Chronic kidney disease (CKD), stage III (moderate) 585.3 [place] [id number] [place] [address] 16 Dec, [address] [address] Dec, Depressive disorder, not elsewhere classified 311 and Generalized anxiety disorder 300.02 [place] [id number] [place] [address] Dec, [place] [id number] [place] [address] Dec, [place] [id number] [place] [address] Nov, Depressive disorder, not elsewhere classified 311 and Generalized anxiety disorder 300.02 [place] [id number] [place] [address] Nov, Arthritis of both knees 716.[address] [address] 07 Nov, 2014 PAF (paroxysmal atrial fibrillation) 427.31 ; CAD (coronary artery disease) 414.00 ; Chest pain 786.50 and Chronic kidney disease (CKD) stage G4/A1, severely decreased glomerular filtration rate (GFR) between 15-29 mL/min/1.73 square meter and albuminuria creatinine ratio less than 30 mg/g 585.4 [place] [id number] [place] [address] Oct, Coronary atherosclerosis of unspecified type of vessel, [place] or graft 414.00 ; Chronic kidney disease, Stage IV (severe) 585.4 ; Hypertension 401.9 and Edema 782.[address] [address] Oct, Depressive disorder, not elsewhere classified 311 and Generalized anxiety disorder 300.02 [place] [address] Oct, Depressive disorder, not elsewhere classified 311 and Generalized anxiety disorder 300.02 [place] [id number] [place] [address] Oct, [address] [address] Oct, [address] [address] Sep, [address] [address] Sep, Chronic kidney disease, Stage IV (severe) 585.4 [place] [id number] [place] [address] Sep, [address] [address] Sep, Coronary atherosclerosis of unspecified type of vessel, [place] or graft 414.00 ; Hypertension 401.9 ; Edema 782.3 and Hypothyroidism 244.9 [place] [id number] [place] [address] Sep, Coronary atherosclerosis of unspecified type of vessel, [place] or graft 414.00 ; Hypertension 401.9 ; Fibromyalgia 729.1 ; Edema 782.3 ; Hypothyroidism 244.9 and Anemia 285.9 [address] [address] Sep, Anxiety disorder, unspecified 300.00 and Depressive disorder, not elsewhere classified 311 [facility] [id number] [address] Sep, [facility] [id number] [place] [address] August, Generalized anxiety disorder 300.02 [facility] [id number] [place] [address] August, Closed fracture of lateral malleolus 824.2 [facility] [id number] [place] [address] Jul, [facility] [id number] [address] Jul, [facility] [id number] [place] [address] Jun, [facility] [address] [address] Jun, [facility] [id number] [address] Jun, [facility] [address], [place] [address] Jun, [facility] [address] [address] Jun, [facility] [address], [place] [address] Jun, [facility] [address], [place] [address] May, [facility] [address] [place] [address] May, [facility] [address] [place] [address] May, 2014 [facility] [place] [facility] [address] [id number] [place] [address] 18 May, 2014 [facility] [place] [facility] [address] [id number] [place] [address] 16 May, 2014 [facility] [place] [facility] [address] [facility] [id number] [place] [address] 16 May, 2014 [facility] [place] [facility] [address] [id number] [place] [address] 13 May, 2014 [facility] [place] [facility] [address] [id number] [place] [address] 13 May, 2014 [facility] [place] [facility] [address] [facility] [id number] [place] [address] 10 May, 2014 [facility] [place] [facility] [address] [facility] [id number] [place] [address] 10 May, 2014 [facility] [place] [facility] [address] [facility] [id number] [place] [address] Apr, [facility] [place] [facility] [address] [facility] [id number] [place] [address] Apr, [facility] [place] [facility] [address] [facility] [id number] [place] [address] Mar, [facility] [place] [facility] [address] [facility] [id number] [place] [address] Mar, [facility] [place] [facility] [address] [facility] [id number] [place] [address] Mar, [facility] [place] [facility] [address] [id number] [place] [address] 15 Mar, 2014 [facility] [place] [facility] [address] [facility] [id number] [place] [address] 15 Mar, 2014 [facility] [place] [facility] [address] [facility] [id number] [place] [address] 15 Mar, 2014 [facility] [place] [facility] [address] [id number] [place] [address] Mar, [facility] [place] [facility] [address] [id number] [place] [address] Feb, [facility] [place] [facility] [address] [id number] [place] [address] Feb, [facility] [place] [facility] [address] [id number] [place] [address] Feb, [facility] [place] [facility] [address] [id number] [place] [address] Jan, [facility] [place] [facility] [address] [id number] [place] [address] Jan, [facility] [place] [facility] [address] [id number] [place] [address] Jan, [facility] [place] [facility] [address] [id number] [place] [address] Jan, [facility] [place] [facility] [address] [id number] [place] [address] Jan, [facility] [place] [facility] [address] [id number] [place] [address] Jan, [facility] [place] [facility] [address] [id number] [place] [address] Jan, [facility] [place] [facility] [address] [id number] [place] [address] Jan, [facility] [place] [facility] [address] [id number] [place] [address] Jan, [facility] [place] [facility] [address] [id number] [place] [address] Jan, [facility] [place] [facility] [address] [id number] [place] [address] Nov, [facility] [place] [facility] [address] [id number] [place] [address] Nov, [facility] [place] [facility] [address] [id number] [place] [address] Nov, [facility] [place] [facility] [address] [id number] [place] [address] Oct, [facility] [place] [facility] [address] [id number] [place] [address] Oct, [facility] [place] [facility] [address] [id number] [place] [address] Oct, [facility] [place] [facility] [address] [id number] [place] [address] Oct, [facility] [place] [facility] [address] [id number] [place] [address] Oct, [facility] [place] [facility] [address] [id number] [place] [address] Oct, [facility] [place] [facility] [address] [id number] [place] [address] Oct, [facility] [place] [facility] [address] [id number] [place] [address] Oct, [facility] [place] [facility] [address] [id number] [place] [address] Oct, [facility] [place] [facility] [address] [id number] [place] [address] Sep, [facility] [place] [facility] [address] [id number] [place] [address] Sep, [facility] [place] [facility] [address] [id number] [place] [address] Sep, [facility] [place] [facility] [address] [id number] [place] [address] Sep, [facility] [place] [facility] [address] [id number] [place] [address] Sep, [facility] [place] [facility] [address] [id number] [place] [address] Sep, [facility] [place] [facility] [address] [id number] [place] [address] Sep, [facility] [place] [facility] [address] [id number] [place] [address] Sep, [facility] [place] [facility] [address] [id number] [place] [address] Sep, [facility] [place] [facility] [address] [id number] [place] [address] August, [facility] [place] [facility] [address] [id number] [place] [address] August, [facility] [place] [facility] [address] [id number] [place] [address] August, [facility] [place] [facility] [address] [id number] [place] [address] August, [facility] [place] [facility] [address] [id number] [place] [address] August, [facility] [place] [facility] [address] [id number] [place] [address] August, [facility] [place] [facility] [address] [id number] [place] [address] Jul, [facility] [place] [facility] [address] [id number] [place] [address] Jul, [facility] [place] [facility] [address] [id number] [place] [address] Jul, [facility] [place] [facility] [address] [id number] [place] [address] Jul, [facility] [place] [facility] [address] [id number] [place] [address] Jul, [facility] [place] [facility] [address] [id number] [place] [address] Jul, [facility] [place] [facility] [address] [id number] [place] [address] Jun, [facility] [place] [facility] [address] [id number] [place] [address] Jun, [facility] [place] [facility] [address] [id number] [place] [address] May, [facility] [place] [facility] [address] [id number] [place] [address] May, [facility] [place] [facility] [address] [id number] [place] [address] May, [facility] [place] [facility] [address] [id number] [place] [address] May, [facility] [place] [facility] [address] [id number] [place] [address] Apr, [facility] [place] [facility] [address] [id number] [place] [address] Apr, [facility] [place] [facility] [address] [id number] [place] [address] Mar, [facility] [place] [facility] [address] [id number] [place] [address] Mar, [facility] [place] [facility] [address] [facility] [id number] [place] [address] Mar, [facility] [place] [facility] [address] [id number], [place] [address] Mar, [facility] [place] [facility] [address] [id number] [place] [address] Mar, [facility] [place] [facility] [address] [id number] [place] [address] Mar, [facility] [place] [facility] [address] [facility] [id number] [place] [address] Feb, [facility] [place] [facility] [address] [id number], [place] [address] Feb, [facility] [place] [facility] [address] [id number] [place] [address] Feb, [facility] [place] [facility] [address] [id number] [place] [address] Feb, [facility] [place] [facility] [address] [id number] [place] [address] Feb, [facility] [place] [facility] [address] [id number] [place] [address] Feb, [facility] [place] [facility] [address] [id number] [place] [address] Jan, [facility] [place] [facility] [address] [id number] [place] [address] Jan, [facility] [place] [facility] [address] [facility] [id number] [place] [address] Jan, [facility] [place] [facility] [address] [id number] [place] [address] Jan, [facility] [place] [facility] [address] [facility] [id number] [place] [address] Jan, [facility] [place] [facility] [address] [facility] [id number] [place] [address] Jan, [facility] [place] [facility] [address] [id number] [place] [address] Dec, [facility] [place] [facility] [address] [id number] [place] [address] Dec, [facility] [place] [facility] [address] [id number] [place] [address] Nov, [facility] [place] [facility] [address] [id number] [place] [address] Nov, [facility] [place] [facility] [address] [facility] [id number] [place] [address] Oct, [facility] [place] [facility] [address] [id number] [place] [address] Oct, [facility] [address] [id number] [place] [address] Oct, [facility] [place] [facility] [address] [id number] [place] [address] Oct, [facility] [place] [facility] [address] [id number] [place] [address] Oct, [facility] [place] [facility] [address] [id number] [place] [address] Oct, [facility] [place] [facility] [address] [id number] [place] [address] Sep, [facility] [place] [facility] [address] [id number] [place] [address] Sep, [facility] [place] [facility] [address] [id number] [place] [address] Sep, [facility] [address] [id number] [place] [address] Sep, [facility] [place] [facility] [address] [id number] [place] [address] August, [facility] [place] [facility] [address] [id number] [place] [address] August, [facility] [place] [facility] [address] [id number] [place] [address] August, [facility] [place] [facility] [address] [id number] [place] [address] August, [facility] [place] [facility] [address] [id number] [place] [address] August, [facility] [place] [facility] [address] [id number] [place] [address] Jul, [facility] [place] [facility] [address] [id number] [place] [address] Jul, [facility] [place] [facility] [address] [id number] [place] [address] Jul, [facility] [place] [facility] [address] [id number] [place] [address] Jul, [facility] [place] [facility] [address] [id number] [place] [address] Jul, [facility] [place] [facility] [address] [id number] [place] [address] Jul, [facility] [place] [facility] [address] [id number] [place] [address] Jul, [facility] [place] [facility] [address] [id number] [place] [address] Jul, [facility] [place] [facility] [address] [id number] [place] [address] Jul, [facility] [place] [facility] [address] [id number] [place] [address] Jul, [facility] [address] [facility] [id number] [place] [address] Jun, [facility] [place] [facility] [address] [id number], [place] [address] Jun, [facility] [place] [facility] [address] [id number], [place] [address] Jun, [facility] [place] [facility] [address] [id number], [place] [address] Jun, [facility] [place] [facility] [address] [id number] [place] [address] Jun, [facility] [place] [facility] [address] [id number] [place] [address] May, [facility] [place] [facility] [address] [id number], [place] [address] May, [facility] [place] [facility] [address] [id number], [place] [address] 07 May, 2012 [facility] [address] [id number] [place] [address] Apr, [facility] [address] [id number] [place] [address] Apr, [facility] [address] [facility] [id number] [place] [address] Apr, [facility] [address] [id number] [place] [address] Apr, [facility] [address] [facility] [id number] [place] [address] Apr, [facility] [address] [facility] [id number] [place] [address] Apr, [facility] [address] [id number] [place] [address] Mar, [facility] [address] [id number] [place] [address] Mar, [facility] [address] [id number] [place] [address] Mar, [facility] [address] [facility] [id number] [place] [address] Mar, [facility] [address] [id number] [place] [address] Feb, [facility] [place] [facility] [address] [id number], [place] [address] Feb, [facility] [place] [facility] [address] [id number] [place] [address] Feb, [facility] [place] [facility] [address] [facility] [id number], [place] [address] Feb, [facility] [address] [id number], [place] [address] Feb, [facility] [place] [facility] [address] [id number] [place] [address] Feb, [facility] [place] [facility] [address] [id number] [place] [address] Feb, [facility] [place] [facility] [address] [id number] [place] [address] Feb, [facility] [place] [facility] [address] [id number] [place] [address] Feb, [facility] [place] [facility] [address] [id number] [place] [address] Feb, [facility] [place] [facility] [address] [id number] [place] [address] Feb, [facility] [place] [facility] [address] [id number] [place] [address] Feb, [facility] [place] [facility] [address] [id number] [place] [address] Feb, [facility] [place] [facility] [address] [id number] [place] [address] Feb, [facility] [place] [facility] [address] [id number] [place] [address] Feb, [facility] [place] [facility] [address] [id number] [place] [address] Feb, [facility] [place] [facility] [address] [id number] [place] [address] Jan, [facility] [place] [facility] [address] [id number] [place] [address] Jan, [facility] [place] [facility] [address] [id number] [place] [address] Jan, [facility] [place] [facility] [address] [id number] [place] [address] Jan, [facility] [place] [facility] [address] [id number] [place] [address] 30 Jan, 2012 [facility] [place] [facility] [address] [id number] [place] [address] Jan, [facility] [place] [facility] [address] [id number] [place] [address] Jan, [facility] [place] [facility] [address] [id number] [place] [address] Jan, [facility] [place] [facility] [address] [id number] [place] [address] 16 Jan, 2012 [facility] [place] [facility] [address] [id number] [place] [address] Jan, [facility] [place] [facility] [address] [id number] [place] [address] Jan, [facility] [place] [facility] [address] [id number] [place] [address] Jan, [facility] [place] [facility] [address] [id number], [place] [address] 26 Sep2011 [facility] [place] [facility] [address] [id number], [place] [address] 26 Sep2011 [facility] [place] [facility] [address] [id number], [place] [address] 24 Sep2011 [facility] [place] [facility] [address] [id number], [place] [address] 23 Sep, 2011 [facility] [place] [facility] [address] [id number], [place] [address] 22 Sep, 2011 [facility] [place] [facility] [address] [id number], [place] [address] 21 Sep2011 [facility] [place] [facility] [address] [facility] [id number], [place] [address] 20 Sep, 2011 [facility] [place] [facility] [address] [id number], [place] [address] 20 Dec, 2011 [facility] [place] [facility] [address] [id number] [place] [address] 07 Sep, 2011 [facility] [place] [facility] [address] [id number] [place] [address] 06 Sep, 2011 [facility] [place] [facility] [address] [id number] [place] [address] 06 Dec, 2011 [facility] [place] [facility] [address] [id number] [place] [address] 05 Dec, 2011 [facility] [place] [facility] [address] [id number] [place] [address] 23 Nov, 2011 [facility] [place] [facility] [address] [id number] [place] [address] 17 Nov, 2011 [facility] [place] [facility] [address] [id number] [place] [address] 13 Nov, 2011 [facility] [place] [facility] [address] [id number] [place] [address] Nov, [facility] [place] [facility] [address] [id number] [place] [address] 08 Nov, 2011 [facility] [place] [facility] [address] [id number] [place] [address] Nov, [facility] [place] [facility] [address] [id number] [place] [address] Nov, [facility] [place] [facility] [address] [id number] [place] [address] Nov, [facility] [place] [facility] [address] [id number] [place] [address] Oct, [facility] [place] [facility] [address] [id number] [place] [address] Oct, [facility] [place] [facility] [address] [id number] [place] [address] Oct, [facility] [place] [facility] [address] [id number] [place] [address] Oct, [facility] [place] [facility] [address] [id number] [place] [address] Oct, [facility] [place] [facility] [address] [id number] [place] [address] Oct, [facility] [address] [id number] [place] [address] Oct, [facility] [place] [facility] [address] [id number] [place] [address] Sep, [facility] [address] [id number] [place] [address] Sep, [facility] [place] [facility] [address] [id number] [place] [address] August, [facility] [address] [id number] [place] [address] August, [facility] [address] [id number] [place] [address] August, [facility] [address] [id number] [place] [address] August, [facility] [address] [id number] [place] [address] Jul, [facility] [place] [facility] [address] [id number] [place] [address] Jul, [facility] [place] [facility] [address] [id number] [place] [address] Jul, [facility] [place] [facility] [address] [id number] [place] [address] Jul, [facility] [place] [facility] [address] [id number] [place] [address] Jul, [facility] [place] [facility] [address] [id number] [place] [address] Jul, [facility] [place] [facility] [address] [id number] [place] [address] Jul, [facility] [address] [id number] [place] [address] Jul, [facility] [place] [facility] [address] [id number] [place] [address] Jul, [facility] [place] [facility] [address] [id number] [place] [address] 23 Jun, 2011 [facility] [place] [facility] [address] [id number] [place] [address] 19 Jun, 2011 [facility] [place] [facility] [address] [id number] [place] [address] 15 Jun, 2011 [facility] [place] [facility] [address] [id number] [place] [address] 14 Jun, 2011 [facility] [address] [facility] [id number] [place] [address] Jun, [facility] [place] [facility] [address] [id number] [place] [address] Jun, [facility] [place] [facility] [address] [id number] [place] [address] Jun, [facility] [place] [facility] [address] [facility] [id number] [place] [address] May, [facility] [place] [facility] [address] [id number] [place] [address] 24 May, 2011 [facility] [place] [facility] [address] [id number] [place] [address] May, [facility] [place] [facility] [address] [id number] [place] [address] May, [facility] [place] [facility] [address] [id number] [place] [address] May, [facility] [place] [facility] [address] [facility] [id number] [place] [address] Apr, [facility] [place] [facility] [address] [id number] [place] [address] Apr, [facility] [place] [facility] [address] [id number] [place] [address] Apr, [facility] [place] [facility] [address] [id number] [place] [address] Apr, [facility] [place] [facility] [address] [id number] [place] [address] Apr, [facility] [place] [facility] [address] [id number] [place] [address] Mar, [facility] [place] [facility] [address] [id number] [place] [address] Mar, [facility] [place] [facility] [address] [id number] [place] [address] Mar, [facility] [place] [facility] [address] [id number] [place] [address] Mar, [facility] [place] [facility] [address] [id number] [place] [address] Mar, [facility] [place] [facility] [address] [id number] [place] [address] Mar, [facility] [place] [facility] [address] [id number] [place] [address] Mar, [facility] [place] [facility] [address] [id number] [place] [address] Feb, [facility] [place] [facility] [address] [id number] [place] [address] Feb, [facility] [place] [facility] [address] [id number] [place] [address] Feb, [facility] [place] [facility] [address] [id number] [place] [address] Feb, [facility] [place] [facility] [address] [id number] [place] [address] 31 Jan, 2011 [facility] [address] [id number] [place] [address] Jan, [facility] [address] [id number], [place] [address] Jan, [facility] [address] [facility] [id number] [place] [address] Jan, [facility] [address] [id number], [place] [address] Nov, [facility] [address] [id number] [place] [address] Mar, [facility] [address] [facility] [id number], [place] [address] Mar, [facility] [address] [facility] [id number], [place] [address] Mar, [facility] [address] [facility] [id number], [place] [address] Mar, [facility] [address] [facility] [id number], [place] [address] Mar, [facility] [address] [facility] [id number], [place] [address] Mar, [facility] [address] [facility] [id number], [place] [address] Feb, [facility] [address] [facility] [id number], [place] [address] Feb, [facility] [address] [facility] [id number], [place] [address] Jan, [facility] [address] [facility] [id number], [place] [address] Jan, [facility] [address] [facility] [id number], [place] [address] Jan, IMMUNIZATIONS No Known Immunizations SOCIAL HISTORY Never Assessed REASON FOR VISIT PLAN OF CARE VITAL SIGNS Height 63 in 2012-04-02 Weight 280 lbs 2012-04-02 Temperature 98.6 degrees Fahrenheit 2012-04-02 Heart Rate 92 bpm 2012-04-02 Respiratory Rate 20 2012-04-02 Blood pressure systolic 162 mmHg 2012-04-02 Blood pressure diastolic 96 mmHg 2012-04-02 MEDICATIONS Unknown Medications RESULTS No Results PROCEDURES Procedure Date Ordered Result Body Site COMPLETE CBC W/AUTO DIFF WBC Apr 02, 2012 ASSAY THYROID STIM HORMONE Apr 02, 2012 ASSAY OF IRON Apr 02, 2012 LIPID PANEL Apr 02, 2012 COMPREHEN METABOLIC PANEL Apr 02, 2012 VENIPUNCT, ROUTINE* Apr 02, 2012 INSTRUCTIONS MEDICATIONS ADMINISTERED No Known Medications MEDICAL [...] 2020 & 2007 Surgical History Bladder surgery [facility] 03/2016 Surgical History Neurotransmitter placed 10/2017 Surgical History retninal repair 12/31/2017 Surgical History cataract surgery 2018 Surgical History cataract surgery 2018 Surgical History SCS trial x7 days 2019 Hospitalization History Surgeries Only Hospitalization History bacterial meningitis December 2016 Hospitalization History [facility] psych for SI 1988 Hospitalization History [facility]-Altered mental status 05/2017 Hospitalization History sepsis, UTI, headache 08/03/2018-08/05/2018
[2018-10-26] MEDS ORDERED: PROMETHAZINE INJ 25 MG/ML (PHENERGAN) AMP ONE (12:15)
[2018-10-26] MEDS ORDERED: HYDROmorphone 2 MG/ML VIAL (DILAUDID) IV ONE ×2 (12:15→12:45)
--- OUTSIDE RECORDS SUMMARY | 2018-10-26 12:15 | XMS REPORT ---
Author Author Migration, Doctor Organization [facility] Address Unknown Phone Unavailable Care Team Providers Care Cyber Security Name Role Phone Migration, Doctor Unavailable Unavailable PROBLEMS Type Condition ICD9-CM Code [id number] Code Onset Dates Condition Status SNOMED Code Problem Hypothyroid E03.9 Active 47785507 Problem Asthma J45.909 Active 566855030 Problem Insomnia G47.00 Active 282245873 Problem Depressed F32.9 Active 10130730 Problem Palpitations R00.2 Active 82634264 Problem Functional diarrhea K59.1 Active 44891825 Problem Chronic kidney disease, stage 4 (severe) N18.4 Active 942258804 Problem Degenerative tear of medial meniscus of left knee M23.204 Active 559346835 Problem Dysthymic disorder F34.1 Active 08775128 Problem Bipolar disorder, current episode manic without psychotic features F31.10 Active 950004625 Problem Generalized anxiety disorder F41.1 Active 36737374 Problem Restless leg G25.81 Active 16042293 Problem Coronary artery disease involving [place] coronary artery of [place] heart, angina presence unspecified I25.10 Active 4511324252367 Problem Hypokalemia E87.6 Active 92102929 Problem Other seasonal allergic rhinitis J30.2 Active 585321934 Problem Mixed stress and urge urinary incontinence N39.46 Active 730731016 Problem Fibromyalgia M79.7 Active 795226123 Problem Essential (primary) hypertension I10 Active 64797673 Problem Long-term use of high-risk medication Z79.899 Active 183983409 Problem Vitamin D deficiency E55.9 Active 04260742 Problem Anemia in chronic kidney disease D63.1 Active 121648900289353 Problem Low back pain M54.5 Active 482034298 Problem Chronic kidney disease, unspecified N18.9 Active 760154063 Problem Abnormal chest CT R93.8 Active 917630082 Problem Primary osteoarthritis of left knee M17.12 Active 022539515 Problem Mood disorder F39 Active 51266955 Problem Stage 3 chronic kidney disease N18.3 Active 459668966 Problem Perimenopausal vasomotor symptoms N95.1 Active 928493273 Problem Asthma with acute exacerbation in adult J45.901 Active 922346025 Problem Other chronic pain G89.29 Active 66594350 Problem History of colon polyps Z86.010 Active 655798097 Problem History of anemia Z86.2 Active 999161264 Problem Body mass index (BMI) of 40.0-44.9 in adult Z68.41 Active 913391024 Problem Seasonal allergic rhinitis due to pollen J30.1 Active 22587957 Problem Restless leg syndrome G25.81 Active 85508075 Problem Chronic pain syndrome G89.4 Active 228216814 ALLERGIES No Information ENCOUNTERS Encounter Location Date Diagnosis [place] [address] [address] Nov, [place] [address] [address] Oct, [place] [address] [address] Oct, [place] [address] [address] Sep, [place] [address] [address] Sep, Generalized anxiety disorder F41.1 and Major depressive disorder, recurrent episode with anxious distress F33.9 [place] [address] [place] [id number] [place] [address] 17 Sep, 2018 Chronic kidney disease, stage 4 (severe) N18.4 [facility] [address] [place] [id number] [place] [address] 2018 Fibromyalgia M79.7 and Chronic pain syndrome G89.4 [place] [address] [address] [address] [address] 11 Sep, 2018 Chronic pain syndrome G89.4 [place] [address] [address] Sep, [facility] [id number] [place] [address] Sep, Chronic pain syndrome G89.4 ; Fibromyalgia M79.7 and Morbid obesity E66.01 [facility] [address] [place] [id number] [place] [address] August, Generalized anxiety disorder F41.1 and Major depressive disorder, recurrent episode with anxious distress F33.9 [facility] [address] [place] [id number] [place] [address] August, Fibromyalgia M79.7 [facility] [address] [place] [id number] [place] [address] August, Restless leg syndrome G25.81 ; Vitamin D deficiency E55.9 ; Urinary tract infection without hematuria, site unspecified N39.0 ; Pain in right shoulder M25.511 ; Other chronic pain G89.29 ; Biceps tendinitis on right M75.21 and Morbid obesity E66.01 [facility] [id number] [place] [address] Jul, Urinary tract infection without hematuria, site unspecified N39.0 and Morbid obesity E66.01 [facility] [id number] [place] [address] Jul, [facility] [id number] [place] [address] Jul, [facility] [address] [place] [id number] [place] [address] Jul, Fibromyalgia M79.7 [facility] [id number] [place] [address] Jul, Acute pain of right shoulder M25.511 [facility] [id number] [place] [address] Jul, Acute pain of right shoulder M25.511 and Morbid obesity E66.01 [facility] [id number] [place] [address] Jun, [place] [address] [place] [id number] [place] [address] Jun, Generalized anxiety disorder F41.1 and Major depressive disorder, recurrent episode with anxious distress F33.9 [place] [address] [place] [id number] [place] [address] Jun, [place] [address] [place] [id number] [place] [address] Jun, Fibromyalgia M79.7 [facility] [place] [address] [address] Jun, Acute pain of right shoulder M25.511 ; Acute pain of right hip M25.551 and Morbid obesity E66.01 [place] [address] [place] [id number] [place] [address] 11 May, 2018 Burning with urination R30.0 ; Vaginal discharge N89.8 ; Chronic kidney disease, stage 4 (severe) N18.4 ; Body mass index (BMI) of 40.0-44.9 in adult Z68.41 and Morbid obesity E66.01 [place] [address] [place] [id number] [place] [address] 07 May, 2018 Fibromyalgia M79.7 [place] [address] [place] [id number] [place] [address] May, Generalized anxiety disorder F41.1 and Major depressive disorder, recurrent episode with anxious distress F33.9 [place] [address] [place] [id number] [place] [address] Apr, [place] [address] [place] [id number] [place] [address] Apr, Fibromyalgia M79.7 [facility] [id number] [place] [address] Mar, Acute UTI N39.0 and Dysuria R30.0 [facility] [address] [place] [address] 10 Mar, 2018 Fibromyalgia M79.7 [facility] [address] [place] [id number] [place] [address] 15 Feb, 2018 [facility] [address] [place] [id number] [place] [address] Feb, [facility] [address] [place] [id number] [place] [address] Feb, [facility] [address] [place] [id number] [place] [address] Feb, Fibromyalgia M79.7 [facility] [address] [place] [id number] [place] [address] 08 Feb, 2018 Complicated UTI (urinary tract infection) N39.0 [facility] [address] [place] [id number] [place] [address] Feb, [facility] [address] [place] [id number] [place] [address] Jan, Generalized anxiety disorder F41.1 and Major depressive disorder, recurrent episode with anxious distress F33.9 [facility] [id number] [place] [address] Jan, Acute conjunctivitis of left eye, unspecified acute conjunctivitis type H10.32 [facility] [address] [place] [id number] [place] [address] Jan, [facility] [address] [place] [id number] [place] [address] Jan, Acute non-recurrent maxillary sinusitis J01.00 ; Dysuria R30.0 ; Perimenopausal vasomotor symptoms N95.1 and Fibromyalgia M79.7 [facility] [address] [place] [address] Dec, Vitamin D deficiency E55.9 [facility] [address] [place] [id number] [place] [address] Dec, Vitamin D deficiency E55.9 [place] [address] [address] 24 Dec, 2017 Vitamin D deficiency E55.9 [place] [address] [place] [id number] [place] [address] Dec, [place] [address] [address] Dec, Fibromyalgia M79.7 [place] [address] [address] Nov, [place] [address] [address] Nov, [place] [address] [address] Nov, [place] [address] [address] Nov, Fibromyalgia M79.7 ; Vision changes H53.9 ; Chest wall pain R07.89 and Chronic pain syndrome G89.4 [place] [address] [place] [id number] [place] [address] Nov, [place] [address] [place] [id number] [place] [address] Nov, Rash of hands R21 [place] [address] [address] Nov, Generalized anxiety disorder F41.1 and Major depressive disorder, recurrent episode with anxious distress F33.9 [place] [address] [address] Nov, Fibromyalgia M79.7 [place] [address] [place] [id number] [place] [address] Nov, Complicated UTI (urinary tract infection) N39.0 [place] [address] [place] [id number] [place] [address] Oct, [facility] [address] [address] Oct, Generalized anxiety disorder F41.1 and Major depressive disorder, recurrent episode with anxious distress F33.9 [facility] [address] [place] [id number] [place] [address] Oct, [facility] [address] [address] Oct, Fibromyalgia M79.7 [place] [address] [address] Sep, Restless leg syndrome G25.81 and Restless leg G25.81 [place] [address] [place] [id number] [place] [address] Sep, [place] [address] [address] Sep, Seasonal allergic rhinitis due to pollen J30.1 ; Screening for breast cancer Z12.31 ; Chest pain at rest R07.9 ; Restless leg syndrome G25.81 ; Essential (primary) hypertension I10 and Depressed F32.9 [facility] [address] [place] [id number] [place] [address] August, Fibromyalgia M79.7 [facility] [address] [place] [id number] [place] [address] August, [facility] [address] [place] [id number] [place] [address] August, [facility] [address] [address] August, Abnormal chest [address] R93.8 [facility] [address] [place] [id number] [place] [address] August, Generalized anxiety disorder F41.1 and Major depressive disorder, recurrent episode with anxious distress F33.9 [facility] [address] [place] [id number] [place] [address] August, Abnormal chest [address] R93.8 [place] [address] [place] [id number] [place] [address] Jul, [place] [address] [place] [id number] [place] [address] Jul, Chronic kidney disease, stage 4 (severe) N18.4 [facility] [address] [place] [id number] [place] [address] Jul, [place] [address] [address] Jul, Restless leg G25.81 ; Mixed stress and urge urinary incontinence N39.46 and Fibromyalgia M79.7 [place] [address] [place] [id number] [place] [address] Jul, Chronic kidney disease, stage 4 (severe) N18.4 [facility] [address] [place] [id number] [place] [address] Jun, Orthostatic hypotension I95.1 ; Chronic kidney disease, stage 4 (severe) N18.4 ; Chest wall discomfort R07.89 and Body mass index (BMI) of 40.0-44.9 in adult Z68.41 [place] [address] [place] [id number] [place] [address] Jun, [facility] [address] [place] [id number] [place] [address] Jun, Orthostatic hypotension I95.1 [place] [address] [place] [id number] [place] [address] Jun, [facility] [address] [place] [id number] [place] [address] Jun, Orthostatic hypotension I95.1 ; Dysuria R30.0 and Acute cystitis without hematuria N30.00 [place] [address] [address] Jun, [facility] [address] [place] [id number] [place] [address] Jun, Chronic kidney disease, stage 4 (severe) N18.4 [facility] [address] [place] [id number] [place] [address] Jun, Fibromyalgia M79.7 [facility] [address] [place] [id number] [place] [address] Jun, [facility] [address] [place] [id number] [place] [address] Jun, [facility] [address] [place] [id number] [place] [address] May, Abnormal chest [address] R93.8 and Stage 3 chronic kidney disease N18.3 [facility] [address] [place] [id number] [place] [address] May, Chronic kidney disease, stage 4 (severe) N18.4 [facility] [address] [place] [id number] [place] [address] May, Chronic kidney disease, stage 4 (severe) N18.4 [facility] [address] [place] [id number] [place] [address] May, Abnormal chest [address] R93.8 [facility] [address] [place] [id number] [place] [address] May, [facility] [address] [place] [id number] [place] [address] May, [facility] [address] [place] [id number] [place] [address] May, Generalized anxiety disorder F41.1 and Major depressive disorder, recurrent episode with anxious distress F33.9 [facility] [address] [place] [id number] [place] [address] May, Mood disorder F39 [facility] [address] [address] Apr, [facility] [id number] [place] [address] Apr, Infected skin lesion L08.9 and Muscle strain of right shoulder region, initial encounter S46.911A [facility] [address] [place] [id number] [place] [address] Apr, Generalized anxiety disorder F41.1 and Major depressive disorder, recurrent episode with anxious distress F33.9 [place] [address] [place] [id number] [place] [address] Apr, [facility] [address] [place] [address] Apr, Recent urinary tract infection Z87.440 and Hypothyroid E03.9 [facility] [address] [place] [address] Apr, Generalized anxiety disorder F41.1 and Major depressive disorder, recurrent episode with anxious distress F33.9 [facility] [address] [place] [id number] [place] [address] Apr, Recent urinary tract infection Z87.440 [facility] [id number] [place] [address] Mar, [facility] [id number] [place] [address] Mar, Dysuria R30.0 ; Acute cystitis without hematuria N30.00 and BMI 40.0- 44.9, adult Z68.41 [facility] [address] [place] [address] Mar, [facility] [id number] [place] [address] Mar, [facility] [address] [place] [id number] [place] [address] Mar, Generalized anxiety disorder F41.1 and Major depressive disorder, recurrent episode with anxious distress F33.9 [facility] [address] [place] [id number] [place] [address] Feb, Conjunctivitis, bacterial H10.9 [facility] [address] [place] [id number] [place] [address] Feb, [facility] [address] [address] Feb, Conjunctivitis, bacterial H10.9 [place] [address] [address] Feb, [facility] [address] [place] [id number] [place] [address] Feb, Dysuria R30.0 ; Acute cystitis N30.00 and BMI 40.0-44.9, adult Z68.41 [place] [address] [place] [id number] [place] [address] Feb, [place] [address] [address] Feb, Generalized anxiety disorder F41.1 and Major depressive disorder, recurrent episode with anxious distress F33.9 [place] [address] [place] [id number] [place] [address] Feb, Mood disorder F39 and BMI 40.0-44.9, adult Z68.41 [place] [address] [place] [id number] [place] [address] Jan, [place] [address] [address] Jan, [place] [address] [place] [id number] [place] [address] Jan, Hypothyroid E03.9 [place] [address] [place] [id number] [place] [address] Jan, [place] [address] [place] [id number] [place] [address] Jan, Chronic kidney disease, unspecified N18.9 ; Hypokalemia E87.6 ; Essential (primary) hypertension I10 ; Fibromyalgia M79.7 ; Coronary artery disease involving [place] coronary artery of [place] heart, angina presence unspecified I25.10 ; Hypothyroid E03.9 and Encounter for immunization Z23 [place] [address] [place] [id number] [place] [address] Jan, Hypothyroid E03.9 [place] [address] [address] Jan, [place] [address] [place] [id number] [place] [address] Dec, Vitamin D deficiency E55.9 [place] [address] [place] [id number] [place] [address] 28 Dec, 2016 Primary osteoarthritis of left knee M17.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 [place] [address] [place] [id number] [place] [address] 19 Dec, 2016 Fibromyalgia M79.7 [place] [address] [place] [id number] [place] [address] 18 Dec, 2016 Mood disorder F39 [place] [address] [place] [id number] [place] [address] 13 Dec, 2016 [place] [address] [place] [id number] [place] [address] 13 Dec, 2016 Generalized anxiety disorder F41.1 and Major depressive disorder, recurrent episode with anxious distress F33.9 [place] [address] [place] [id number] [place] [address] 11 Dec, 2016 [place] [address] [place] [id number] [place] [address] 08 Dec, 2016 Streptococcal meningitis G00.2 [facility] [address] [facility] [id number] [address] 07 Dec, 2016 Streptococcal meningitis G00.2 [facility] [address] [facility] [id number] [address] 07 Dec, 2016 [facility] [address] [address] Dec, Streptococcal meningitis G00.2 [facility] [address] [address] Dec, [facility] [id number] [place] [address] Dec, Major depressive disorder, recurrent episode with anxious distress F33.9 [facility] [address] [address] Nov, Fever, unspecified fever cause R50.9 [facility] [address] [address] Nov, [facility] [id number] [place] [address] Nov, Hypothyroid E03.9 [facility] [id number] [place] [address] Nov, Generalized anxiety disorder F41.1 and Major depressive disorder, recurrent episode with anxious distress F33.9 [facility] [address] [address] Nov, [facility] [address] [id number] Oct, Dental examination Z01.20 [facility] [address] [address] Oct, Generalized anxiety disorder F41.1 and Major depressive disorder, recurrent episode with anxious distress F33.9 [facility] [id number] [place] [address] Oct, Chronic kidney disease, stage 4 (severe) N18.4 [place] [address] [address] Oct, [place] [address] [address] Oct, Fibromyalgia M79.7 [place] [address] [place] [id number] [place] [address] Oct, [place] [address] [place] [id number] [place] [address] Oct, Generalized anxiety disorder F41.1 ; Major depressive disorder, recurrent episode with anxious distress F33.9 and Bipolar disorder, current episode manic without psychotic features F31.10 [place] [address] [address] Sep, [place] [address] [place] [id number] [place] [address] Sep, [place] [address] [address] Sep, Vitamin D deficiency E55.9 [place] [address] [address] Sep, Vitamin D deficiency E55.9 [place] [address] [address] Sep, [place] [address] [address] Sep, Chronic kidney disease, stage 4 (severe) N18.4 ; Hypothyroid E03.9 ; Restless leg G25.81 ; Fibromyalgia M79.7 ; Essential (primary) hypertension I10 ; Vitamin D deficiency E55.9 ; Dyspepsia R10.13 ; Anemia in chronic kidney disease D63.1 ; Chronic kidney disease, unspecified N18.9 ; Coronary artery disease involving [place] coronary artery of [place] heart, angina presence unspecified I25.10 ; Screening breast examination Z12.39 and Low back pain M54.5 [place] [address] [place] [id number] [place] [phone] August, Generalized anxiety disorder F41.1 and Major depressive disorder, recurrent episode with anxious distress F33.9 [place] [address] [id number] [place] [id number] August, Generalized anxiety disorder F41.1 and Major depressive disorder, recurrent episode with anxious distress F33.9 [place] [address] [place] [id number] [place] [id number] August, Fibromyalgia M79.7 [place] [address] [place] [id number] [place] [phone] Jul, Generalized anxiety disorder F41.1 and Major depressive disorder, recurrent episode with anxious distress F33.9 [facility] [id number] [place] [address] Jul, Fibromyalgia M79.7 [facility] [id number] [place] [address] Jul, Generalized anxiety disorder F41.1 [facility] [id number] [place] [address] May, [facility] [id number] [place] [address] May, Hypothyroid E03.9 [facility] [id number] [place] [address] May, Chronic kidney disease, stage 4 (severe) N18.4 ; Hypothyroid E03.9 ; Restless leg G25.81 ; Fibromyalgia M79.7 ; Essential (primary) hypertension I10 ; Vitamin D deficiency E55.9 ; Dyspepsia R10.13 ; Acute non-recurrent maxillary sinusitis J01.00 ; Anemia in chronic kidney disease D63.1 ; Chronic kidney disease, unspecified N18.9 and Coronary artery disease involving omaha coronary artery of omaha heart, angina presence unspecified I25.10 [facility] [id number] [place] [address] May, Vitamin D deficiency, unspecified E55.9 [facility] [id number] [place] [address] May, Generalized anxiety disorder F41.1 and Major depressive disorder, recurrent episode with anxious distress F33.9 [facility] [id number] [place] [address] Apr, Pain in right knee M25.561 and Pain in left knee M25.562 [facility] [id number] [place] [address] Apr, [facility] [id number] [place] [address] Apr, [facility] [id number] [place] [address] Apr, [facility] [id number] [place] [address] Mar, Generalized anxiety disorder F41.1 and Major depressive disorder, recurrent episode with anxious distress F33.9 [facility] [id number] [place] [address] Mar, Generalized anxiety disorder F41.1 and Major depressive disorder, recurrent episode with anxious distress F33.9 [facility] [id number] [place] [address] Mar, [facility] [id number] [place] [address] Mar, [facility] [id number] [place] [address] Mar, [facility] [id number] [place] [address] Mar, Asthma J45.909 and Fibromyalgia M79.7 [facility] [id number] [place] [address] Mar, Chronic kidney disease, stage 4 (severe) N18.4 ; Vitamin D deficiency E55.9 and Essential (primary) hypertension I10 [facility] [id number] [place] [address] Feb, [facility] [id number] [place] [address] Feb, Dysuria R30.0 ; Mixed stress and urge urinary incontinence N39.46 ; Fibromyalgia M79.7 and Chronic kidney disease, stage IV (severe) N18.4 [facility] [address] [address] Feb, Chronic kidney disease, stage 4 (severe) N18.4 [facility] [id number] [place] [address] Feb, Chronic kidney disease, stage 4 (severe) N18.4 [facility] [id number] [place] [address] Feb, [facility] [id number] [place] [address] Feb, Vitamin D deficiency, unspecified E55.9 [facility] [id number] [place] [address] Jan, [facility] [id number] [place] [address] Jan, [facility] [id number] [place] [address] Dec, [facility] [id number] [place] [address] Dec, Chronic kidney disease, stage 4 (severe) N18.4 [facility] [id number] [place] [address] Dec, Dysthymic disorder F34.1 and Generalized anxiety disorder F41.1 [facility] [id number] [place] [address] Dec, [facility] [address] [address] Dec, [facility] [address] [address] Dec, Dysthymic disorder F34.1 and Generalized anxiety disorder F41.1 [facility] [address] [address] Dec, Dysuria R30.0 ; Chronic kidney disease, stage 4 (severe) N18.4 ; Hypertension I10 ; Dyspepsia R10.13 ; Yeast dermatitis B37.2 ; Palpitations R00.2 ; Hypothyroid E03.9 ; Functional diarrhea K59.1 and Other seasonal allergic rhinitis J30.2 [facility] [address] [address] Dec, [facility] [address] [address] Nov, Dysuria R30.0 and Stress incontinence N39.3 [facility] [id number] [place] [address] Nov, [facility] [id number] [place] [address] Nov, [facility] [address] [address] Nov, Osteoarthritis of knees, bilateral M17.0 [facility] [address] [address] Nov, Dysthymic disorder F34.1 and Generalized anxiety disorder F41.1 [facility] [id number] [place] [address] Nov, [facility] [address] [address] Nov, [facility] [id number] [place] [address] Nov, Urgency of urination R39.15 [facility] [id number] [place] [address] Nov, [facility] [id number] [place] [address] Nov, Chronic kidney disease, stage 4 (severe) N18.4 [facility] [id number] [place] [address] Oct, Hypertension I10 ; Coronary artery disease involving o[place] coronary artery of o[place] heart, angina presence unspecified I25.10 ; Palpitations R00.2 ; Hypothyroid E03.9 ; Right foot pain M79.671 ; Functional diarrhea K59.1 and Other seasonal allergic rhinitis J30.2 [facility] [id number] [place] [address] Oct, Dysthymic disorder F34.1 and Generalized anxiety disorder F41.1 [facility] [id number] [place] [address] Sep, [facility] [id number] [place] [address] Sep, [facility] [id number] [place] [address] Sep, [facility] [id number] [place] [address] Sep, [facility] [id number] [place] [address] Sep, [facility] [id number] [place] [address] Sep, Dysthymic disorder F34.1 and Generalized anxiety disorder F41.1 [facility] [id number] [place] [address] 16 Sep, 2015 Asthma with acute exacerbation in adult J45.901 ; Dysuria R30.0 ; Chronic kidney disease, stage 4 (severe) N18.4 and History of anemia Z86.2 [facility] [id number] [place] [address] 2015 Generalized anxiety disorder F41.1 and Dysthymic disorder F34.1 [facility] [address] [address] August, Screening breast examination Z12.39 and Acute recurrent maxillary sinusitis J01.01 [facility] [address] [address] August, Osteoarthritis of knees, bilateral M17.0 [facility] [id number] [place] [address] August, Chronic kidney disease, stage 4 (severe) N18.4 ; Acute non-recurrent maxillary sinusitis J01.00 ; Urinary problem R39.89 ; Bowel habit changes R19.4 ; Functional diarrhea K59.1 and History of colon polyps Z86.010 [facility] [address] [address] Jul, Dysthymic disorder F34.1 and Generalized anxiety disorder F41.1 [facility] [id number] [place] [address] Jul, [facility] [id number] [place] [address] Jul, Dysthymic disorder F34.1 ; Generalized anxiety disorder F41.1 and snf use of drug Z79.899 [facility] [id number] [place] [address] Jul, [facility] [id number] [place] [address] Jun, [facility] [address] [address] Jun, [facility] [id number] [place] [address] May, [facility] [id number] [place] [address] May, Dysthymic disorder F34.1 and Generalized anxiety disorder F41.1 [facility] [id number] [place] [address] Apr, Kidney disease N28.9 [facility] [id number] [place] [address] Apr, Generalized anxiety disorder F41.1 and Dysthymic disorder F34.1 [facility] [id number] [place] [address] Apr, Chronic kidney disease, stage 4 (severe) N18.4 [facility] [id number] [place] [address] Apr, Generalized anxiety disorder F41.1 ; Major depression, recurrent F33.9 and Sleep disturbance G47.9 [facility] [id number] [place] [address] Mar, Generalized anxiety disorder F41.1 and Dysthymic disorder F34.1 [facility] [id number] [place] [address] Mar, Generalized anxiety disorder F41.1 ; Dysthymic disorder F34.1 and Insomnia G47.00 [facility] [id number] [place] [address] Mar, [facility] [id number] [place] [address] Mar, [facility] [id number] [place] [address] Mar, Osteoarthritis of knees, bilateral M17.0 [facility] [id number] [place] [address] Mar, Hypertension I10 ; Hypothyroid E03.9 ; Dysthymic disorder F34.1 ; Chronic kidney disease, stage 4 (severe) N18.4 and Nausea & vomiting R11.2 [facility] [id number] [place] [address] Mar, Generalized anxiety disorder F41.1 ; Dysthymic disorder F34.1 and Insomnia G47.00 [facility] [address] [address] Mar, Dehydration E86.0 ; Chronic kidney disease, stage 4 (severe) N18.4 and Nausea & vomiting R11.2 [facility] [id number] [place] [address] 08 Mar, 2015 Gastroenteritis K52.[address] [address] Mar, [facility] [address] [address] Mar, [address] [address] Feb, Dysthymic disorder F34.1 and Generalized anxiety disorder F41.1 [facility] [id number] [place] [address] Jan, UTI (urinary tract infection) N39.0 ; Asthma J45.909 ; Coronary artery disease involving o[place] coronary artery of omaha heart, angina presence unspecified I25.10 ; Hypertension I10 ; Hypothyroid E03.9 ; Vitamin D deficiency E55.9 ; Insomnia G47.00 ; Palpitations R00.2 ; Depressed F32.9 ; Restless leg G25.81 and Anxiety F41.9 [place] [id number] [place] [address] Jan, Dysthymic disorder F34.1 and Generalized anxiety disorder F41.1 [facility] [id number] [place] [address] 07 Jan, 2015 [facility] [id number] [place] [address] Dec, [facility] [id number] [place] [address] 28 Dec, 2014 Alkalosis 276.3 ; Chronic kidney disease, Stage IV (severe) 585.4 ; Hyperpotassemia 276.7 ; Secondary hyperparathyroidism, renal 588.81 ; Proteinuria 791.0 ; Unspecified vitamin D deficiency 268.9 ; Anemia in chronic kidney disease 285.21 ; Other and unspecified hyperlipidemia 272.4 ; Hypertension, essential, benign 401.1 and Chronic kidney disease (CKD), stage III (moderate) 585.3 [facility] [id number] [place] [address] 16 Dec, [address] [address] Dec, Depressive disorder, not elsewhere classified 311 and Generalized anxiety disorder 300.02 [facility] [id number] [place] [address] Dec, [facility] [id number] [place] [address] Dec, [facility] [id number] [place] [address] Nov, Depressive disorder, not elsewhere classified 311 and Generalized anxiety disorder 300.02 [facility] [id number] [place] [address] Nov, Arthritis of both knees 716.[address] [address] 07 Nov, 2014 PAF (paroxysmal atrial fibrillation) 427.31 ; CAD (coronary artery disease) 414.00 ; Chest pain 786.50 and Chronic kidney disease (CKD) stage G4/A1, severely decreased glomerular filtration rate (GFR) between 15-29 mL/min/1.73 square meter and albuminuria creatinine ratio less than 30 mg/g 585.4 [place] [id number] [place] [address] Oct, Coronary atherosclerosis of unspecified type of vessel, omaha or graft 414.00 ; Chronic kidney disease, Stage IV (severe) 585.4 ; Hypertension 401.9 and Edema 782.[address] [address] Oct, Depressive disorder, not elsewhere classified 311 and Generalized anxiety disorder 300.[address] [place] [address] Oct, Depressive disorder, not elsewhere classified 311 and Generalized anxiety disorder 300.02 [place] [id number] [place] [address] Oct, [address] [address] Oct, [address] [address] Sep, [address] [address] Sep, Chronic kidney disease, Stage IV (severe) 585.4 [place] [id number] [place] [address] Sep, [address] [address] Sep, Coronary atherosclerosis of unspecified type of vessel, o[place] or graft 414.00 ; Hypertension 401.9 ; Edema 782.3 and Hypothyroidism 244.9 [place] [id number] [place] [address] Sep, Coronary atherosclerosis of unspecified type of vessel, omaha or graft 414.00 ; Hypertension 401.9 ; Fibromyalgia 729.1 ; Edema 782.3 ; Hypothyroidism 244.9 and Anemia 285.9 [address] [address] Sep, Anxiety disorder, unspecified 300.00 and Depressive disorder, not elsewhere classified 311 [facility] [id number] [address] Sep, [facility] [id number] [place] [address] August, Generalized anxiety disorder 300.02 [facility] [id number] [place] [address] August, Closed fracture of lateral malleolus 824.2 [facility] [id number] [place] [address] Jul, [facility] [id number] [address] Jul, [facility] [id number] [place] [address] Jun, [facility] [address] [address] Jun, [facility] [id number] [address] Jun, [facility] [address] [address] Jun, [facility] [address] [address] Jun, [facility] [address] [address] Jun, [facility] [address] [address] May, [facility] [address] [address] May, [facility] [address] [address] May, 2014 [facility] [place] [facility] [address] [id number] [place] [address] 18 May, 2014 [facility] [place] [facility] [address] [id number] [place] [address] 16 May, 2014 [facility] [place] [facility] [address] [facility] [id number] [place] [address] 16 May, 2014 [facility] [place] [facility] [address] [id number] [place] [address] 13 May, 2014 [facility] [place] [facility] [address] [id number] [place] [address] 13 May, 2014 [facility] [place] [facility] [address] [facility] [id number] [place] [address] 10 May, 2014 [facility] [place] [facility] [address] [facility] [id number] [place] [address] 10 May, 2014 [facility] [place] [facility] [address] [facility] [id number] [place] [address] Apr, [facility] [place] [facility] [address] [facility] [id number] [place] [address] Apr, [facility] [place] [facility] [address] [facility] [id number] [place] [address] Mar, [facility] [place] [facility] [address] [facility] [id number] [place] [address] Mar, [facility] [place] [facility] [address] [facility] [id number] [place] [address] Mar, [facility] [place] [facility] [address] [id number] [place] [address] 15 Mar, 2014 [facility] [place] [facility] [address] [facility] [id number] [place] [address] 15 Mar, 2014 [facility] [place] [facility] [address] [facility] [id number] [place] [address] 15 Mar, 2014 [facility] [place] [facility] [address] [id number] [place] [address] Mar, [facility] [place] [facility] [address] [id number] [place] [address] Feb, [facility] [place] [facility] [address] [id number] [place] [address] Feb, [facility] [place] [facility] [address] [id number] [place] [address] Feb, [facility] [place] [facility] [address] [id number] [place] [address] Jan, [facility] [place] [facility] [address] [id number] [place] [address] Jan, [facility] [place] [facility] [address] [id number] [place] [address] Jan, [facility] [place] [facility] [address] [id number] [place] [address] Jan, [facility] [place] [facility] [address] [id number] [place] [address] Jan, [facility] [place] [facility] [address] [id number] [place] [address] Jan, [facility] [place] [facility] [address] [id number] [place] [address] Jan, [facility] [place] [facility] [address] [id number] [place] [address] Jan, [facility] [place] [facility] [address] [id number] [place] [address] Jan, [facility] [place] [facility] [address] [id number] [place] [address] Jan, [facility] [place] [facility] [address] [id number] [place] [address] Nov, [facility] [place] [facility] [address] [id number] [place] [address] Nov, [facility] [place] [facility] [address] [id number] [place] [address] Nov, [facility] [place] [facility] [address] [id number] [place] [address] Oct, [facility] [place] [facility] [address] [id number] [place] [address] Oct, [facility] [place] [facility] [address] [id number] [place] [address] Oct, [facility] [place] [facility] [address] [id number] [place] [address] Oct, [facility] [place] [facility] [address] [id number] [place] [address] Oct, [facility] [place] [facility] [address] [id number] [place] [address] Oct, [facility] [place] [facility] [address] [id number] [place] [address] Oct, [facility] [place] [facility] [address] [id number] [place] [address] Oct, [facility] [place] [facility] [address] [id number] [place] [address] Oct, [facility] [place] [facility] [address] [id number] [place] [address] Sep, [facility] [place] [facility] [address] [id number] [place] [address] Sep, [facility] [place] [facility] [address] [id number] [place] [address] Sep, [facility] [place] [facility] [address] [id number] [place] [address] Sep, [facility] [place] [facility] [address] [id number] [place] [address] Sep, [facility] [place] [facility] [address] [id number] [place] [address] Sep, [facility] [place] [facility] [address] [id number] [place] [address] Sep, [facility] [place] [facility] [address] [id number] [place] [address] Sep, [facility] [place] [facility] [address] [id number] [place] [address] Sep, [facility] [place] [facility] [address] [id number] [place] [address] August, [facility] [place] [facility] [address] [id number] [place] [address] August, [facility] [place] [facility] [address] [id number] [place] [address] August, [facility] [place] [facility] [address] [id number] [place] [address] August, [facility] [place] [facility] [address] [id number] [place] [address] August, [facility] [place] [facility] [address] [id number] [place] [address] August, [facility] [place] [facility] [address] [id number] [place] [address] Jul, [facility] [place] [facility] [address] [id number] [place] [address] Jul, [facility] [place] [facility] [address] [id number] [place] [address] Jul, [facility] [place] [facility] [address] [id number] [place] [address] Jul, [facility] [place] [facility] [address] [id number] [place] [address] Jul, [facility] [place] [facility] [address] [id number] [place] [address] Jul, [facility] [place] [facility] [address] [id number] [place] [address] Jun, [facility] [place] [facility] [address] [id number] [place] [address] Jun, [facility] [place] [facility] [address] [id number] [place] [address] May, [facility] [place] [facility] [address] [id number] [place] [address] May, [facility] [place] [facility] [address] [id number] [place] [address] May, [facility] [place] [facility] [address] [id number] [place] [address] May, [facility] [place] [facility] [address] [id number] [place] [address] Apr, [facility] [place] [facility] [address] [id number] [place] [address] Apr, [facility] [place] [facility] [address] [id number] [place] [address] Mar, [facility] [place] [facility] [address] [id number] [place] [address] Mar, [facility] [place] [facility] [address] [facility] [id number] [place] [address] Mar, [facility] [place] [facility] [address] [id number] [address] Mar, [facility] [place] [facility] [address] [id number] [place] [address] Mar, [facility] [place] [facility] [address] [id number] [place] [address] Mar, [facility] [place] [facility] [address] [facility] [id number] [place] [address] Feb, [facility] [place] [facility] [address] [id number] [address] Feb, [facility] [place] [facility] [address] [id number] [place] [address] Feb, [facility] [place] [facility] [address] [id number] [place] [address] Feb, [facility] [place] [facility] [address] [id number] [place] [address] Feb, [facility] [place] [facility] [address] [id number] [place] [address] Feb, [facility] [place] [facility] [address] [id number] [place] [place] [address] Jan, [facility] [place] [facility] [address] [id number] [place] [address] Jan, [facility] [place] [facility] [address] [facility] [id number] [place] [address] Jan, [facility] [place] [facility] [address] [id number] [place] [address] Jan, [facility] [place] [facility] [address] [facility] [id number] [place] [address] Jan, [facility] [place] [facility] [address] [facility] [id number] [place] [address] Jan, [facility] [place] [facility] [address] [id number] [place] [address] Dec, [facility] [place] [facility] [address] [id number] [place] [address] Dec, [facility] [place] [facility] [address] [id number] [place] [address] Nov, [facility] [place] [facility] [address] [id number] [place] [address] Nov, [facility] [place] [facility] [address] [facility] [id number] [place] [address] Oct, [facility] [place] [facility] [address] [id number] [place] [address] Oct, [facility] [address] [id number] [place] [address] Oct, [facility] [place] [facility] [address] [id number] [place] [address] Oct, [facility] [place] [facility] [address] [id number] [place] [address] Oct, [facility] [place] [facility] [address] [id number] [place] [address] Oct, [facility] [place] [facility] [address] [id number] [place] [address] Sep, [facility] [place] [facility] [address] [id number] [place] [address] Sep, [facility] [place] [facility] [address] [id number] [place] [address] Sep, [facility] [address] [id number] [place] [address] Sep, [facility] [place] [facility] [address] [id number] [place] [address] August, [facility] [place] [facility] [address] [id number] [place] [address] August, [facility] [place] [facility] [address] [id number] [place] [address] August, [facility] [place] [facility] [address] [id number] [place] [address] August, [facility] [place] [facility] [address] [id number] [place] [address] August, [facility] [place] [facility] [address] [id number] [place] [address] Jul, [facility] [place] [facility] [address] [id number] [place] [address] Jul, [facility] [place] [facility] [address] [id number] [place] [address] Jul, [facility] [place] [facility] [address] [id number] [place] [address] Jul, [facility] [place] [facility] [address] [id number] [place] [address] Jul, [facility] [place] [facility] [address] [id number] [place] [address] Jul, [facility] [place] [facility] [address] [id number] [place] [address] Jul, [facility] [place] [facility] [address] [id number] [place] [address] Jul, [facility] [place] [facility] [address] [id number] [place] [address] Jul, [facility] [place] [facility] [address] [id number] [place] [address] Jul, [facility] [address] [facility] [id number] [id number] Jun, [facility] [place] [facility] [address] [id number] [place] [address] Jun, [facility] [place] [facility] [address] [id number] [place] [address] Jun, [facility] [place] [facility] [address] [id number] [place] [address] Jun, [facility] [place] [facility] [address] [id number] [place] [address] Jun, [facility] [place] [facility] [address] [id number] [place] [address] May, [facility] [place] [facility] [address] [id number] [place] [address] May, [facility] [place] [facility] [address] [id number] [place] [address] 07 May, 2012 [facility] [address] [id number] [place] [address] Apr, [facility] [address] [id number] [place] [address] Apr, [facility] [address] [facility] [id number] [place] [address] Apr, [facility] [address] [id number] [place] [address] Apr, [facility] [address] [facility] [id number] [place] [address] Apr, [facility] [address] [facility] [id number] [place] [address] Apr, [facility] [address] [id number] [address] Mar, [facility] [address] [id number] [place] [address] Mar, [facility] [address] [id number] [address] Mar, [facility] [address] [facility] [id number] [place] [address] Mar, [facility] [address] [id number] [place] [address] Feb, [facility] [place] [facility] [address] [id number] [place] [address] Feb, [facility] [place] [facility] [address] [id number] [place] [address] Feb, [facility] [place] [facility] [address] [facility] [id number] [place] [address] Feb, [facility] [address] [id number] [place] [address] Feb, [facility] [place] [facility] [address] [id number] [place] [address] Feb, [facility] [place] [facility] [address] [id number] [place] [address] Feb, [facility] [place] [facility] [address] [id number] [place] [address] Feb, [facility] [place] [facility] [address] [id number] [place] [address] Feb, [facility] [place] [facility] [address] [id number] [place] [address] Feb, [facility] [place] [facility] [address] [id number] [place] [address] Feb, [facility] [place] [facility] [address] [id number] [place] [address] Feb, [facility] [place] [facility] [address] [id number] [place] [address] Feb, [facility] [place] [facility] [address] [id number] [place] [address] Feb, [facility] [place] [facility] [address] [id number] [place] [address] Feb, [facility] [place] [facility] [address] [id number] [place] [address] Feb, [facility] [place] [facility] [address] [id number] [place] [address] Jan, [facility] [place] [facility] [address] [id number] [place] [address] Jan, [facility] [place] [facility] [address] [id number] [place] [address] Jan, [facility] [place] [facility] [address] [id number] [place] [address] Jan, [facility] [place] [facility] [address] [id number] [place] [address] 30 Jan, 2012 [facility] [place] [facility] [address] [id number] [place] [address] Jan, [facility] [place] [facility] [address] [id number] [place] [address] Jan, [facility] [place] [facility] [address] [id number] [place] [address] Jan, [facility] [place] [facility] [address] [id number] [place] [address] 16 Jan, 2012 [facility] [place] [facility] [address] [id number] [place] [address] Jan, [facility] [place] [facility] [address] [id number] [place] [address] Jan, [facility] [place] [facility] [address] [id number] [place] [address] Jan, [facility] [place] [facility] [address] [id number] [place] [address] 26 Sep2011 [facility] [place] [facility] [address] [id number] [place] [address] 26 Sep2011 [facility] [place] [facility] [address] [id number] [place] [address] 24 Sep2011 [facility] [place] [facility] [address] [id number] [place] [address] 23 Sep, 2011 [facility] [place] [facility] [address] [id number] [place] [address] 22 Sep, 2011 [facility] [place] [facility] [address] [id number] [place] [address] 21 Sep2011 [facility] [place] [facility] [address] [facility] [id number] [place] [address] 20 Sep, 2011 [facility] [place] [facility] [address] [id number] [place] [address] 20 Dec, 2011 [facility] [place] [facility] [address] [id number] [place] [address] 07 Sep, 2011 [facility] [place] [facility] [address] [id number] [place] [address] 06 Sep, 2011 [facility] [place] [facility] [address] [id number] [place] [address] 06 Dec, 2011 [facility] [place] [facility] [address] [id number] [place] [address] 05 Dec, 2011 [facility] [place] [facility] [address] [id number] [place] [address] 23 Nov, 2011 [facility] [place] [facility] [address] [id number] [place] [address] 17 Nov, 2011 [facility] [place] [facility] [address] [id number] [place] [address] 13 Nov, 2011 [facility] [place] [facility] [address] [id number] [place] [address] Nov, [facility] [place] [facility] [address] [id number] [place] [address] 08 Nov, 2011 [facility] [place] [facility] [address] [id number] [place] [address] Nov, [facility] [place] [facility] [address] [id number] [place] [address] Nov, [facility] [place] [facility] [address] [id number] [place] [address] Nov, [facility] [place] [facility] [address] [id number] [place] [address] Oct, [facility] [place] [facility] [address] [id number] [place] [address] Oct, [facility] [place] [facility] [address] [id number] [place] [address] Oct, [facility] [place] [facility] [address] [id number] [place] [address] Oct, [facility] [place] [facility] [address] [id number] [place] [address] Oct, [facility] [place] [facility] [address] [id number] [place] [address] Oct, [facility] [address] [id number] [place] [address] Oct, [facility] [place] [facility] [address] [id number] [place] [address] Sep, [facility] [address] [id number] [place] [address] Sep, [facility] [place] [facility] [address] [id number] [place] [address] August, [facility] [address] [id number] [place] [address] August, [facility] [address] [id number] [place] [address] August, [facility] [address] [id number] [place] [address] August, [facility] [address] [id number] [place] [address] Jul, [facility] [place] [facility] [address] [id number] [place] [address] Jul, [facility] [place] [facility] [address] [id number] [place] [address] Jul, [facility] [place] [facility] [address] [id number] [place] [address] Jul, [facility] [place] [facility] [address] [id number] [place] [address] Jul, [facility] [place] [facility] [address] [id number] [place] [address] Jul, [facility] [place] [facility] [address] [id number] [place] [address] Jul, [facility] [address] [id number] [place] [address] Jul, [facility] [place] [facility] [address] [id number] [place] [address] Jul, [facility] [place] [facility] [address] [id number] [place] [address] 23 Jun, 2011 [facility] [place] [facility] [address] [id number] [place] [address] 19 Jun, 2011 [facility] [place] [facility] [address] [id number] [place] [address] 15 Jun, 2011 [facility] [place] [facility] [address] [id number] [place] [address] 14 Jun, 2011 [facility] [address] [facility] [id number] [place] [address] Jun, [facility] [place] [facility] [address] [id number] [place] [address] Jun, [facility] [place] [facility] [address] [id number] [place] [address] Jun, [facility] [place] [facility] [address] [facility] [id number] [place] [address] May, [facility] [place] [facility] [address] [id number] [place] [address] 24 May, 2011 [facility] [place] [facility] [address] [id number] [place] [address] May, [facility] [place] [facility] [address] [id number] [place] [address] May, [facility] [place] [facility] [address] [id number] [place] [address] May, [facility] [place] [facility] [address] [facility] [id number] [place] [address] Apr, [facility] [place] [facility] [address] [id number] [place] [address] Apr, [facility] [place] [facility] [address] [id number] [place] [address] Apr, [facility] [place] [facility] [address] [id number] [place] [address] Apr, [facility] [place] [facility] [address] [id number] [place] [address] Apr, [facility] [place] [facility] [address] [id number] [place] [address] Mar, [facility] [place] [facility] [address] [id number] [place] [address] Mar, [facility] [place] [facility] [address] [id number] [place] [address] Mar, [facility] [place] [facility] [address] [id number] [place] [address] Mar, [facility] [place] [facility] [address] [id number] [place] [address] Mar, [facility] [place] [facility] [address] [id number] [place] [address] Mar, [facility] [place] [facility] [address] [id number] [place] [address] Mar, [facility] [place] [facility] [address] [id number] [place] [address] Feb, [facility] [place] [facility] [address] [id number] [place] [address] Feb, [facility] [place] [facility] [address] [id number] [place] [address] Feb, [facility] [place] [facility] [address] [id number] [place] [address] Feb, [facility] [place] [facility] [address] [id number] [place] [address] 31 Jan, 2011 [facility] [address] [id number] [place] [address] Jan, [facility] [address] [id number] [place] [address] Jan, [facility] [address] [facility] [id number] [place] [address] Jan, [facility] [address] [id number] [place] [address] Nov, [facility] [address] [id number] [place] [address] Mar, [facility] [address] [facility] [id number] [place] [address] Mar, [facility] [address] [facility] [id number] [place] [address] Mar, [facility] [address] [facility] [id number] [place] [address] Mar, [facility] [address] [facility] [id number] [place] [address] Mar, [facility] [address] [facility] [id number] [place] [address] Mar, [facility] [address] [facility] [id number] [place] [address] Feb, [facility] [address] [facility] [id number] [place] [address] Feb, [facility] [address] [facility] [id number] [place] [address] Jan, [facility] [address] [facility] [id number] [place] [address] Jan, [facility] [address] [facility] [id number] [place] [address] Jan, IMMUNIZATIONS No Known Immunizations SOCIAL HISTORY [...] 2020 & 2007 Surgical History Bladder surgery [facility] 03/2016 Surgical History Neurotransmitter placed 10/2017 [...]
[2018-10-26 12:17] LABS: BASOPHILS # (AUTO) 0.2 10^3/uL (0.0-0.1); BASOPHILS % (AUTO) 2 % (0-10); EOSINOPHILS # (AUTO) 0.6 10^3/uL (0.0-0.3); EOSINOPHILS % (AUTO) 6 % (0-10); HEMATOCRIT 40 % (35-52); LYMPHOCYTES # (AUTO) 3.6 X 10^3 (1.0-4.0); LYMPHOCYTES % (AUTO) 37 % (12-44); MEAN CORPUSCULAR HEMOGLOBIN 31 PG (25-34); MEAN CORPUSCULAR HGB CONC 32 G/DL (32-36); MEAN CORPUSCULAR VOLUME 95 FL (80-99); MONOCYTES # (AUTO) 0.8 X 10^3 (0.0-1.0); MONOCYTES % (AUTO) 9 % (0-12); NEUTROPHILS # (AUTO) 4.5 X 10^3 (1.8-7.8); NEUTROPHILS % (AUTO) 47 % (42-75); PLATELET COUNT 326 10^3/uL (130-400); RED CELL DISTRIBUTION WIDTH 13.4 % (10.0-14.5); WHITE BLOOD COUNT 9.7 10^3/uL (4.3-11.0)
--- NOTE | 2018-10-26 12:17 | ED Lower Extremity ---
General Chief Complaint: Lower Extremity Stated Complaint: L LEG PAIN Source: patient, family History of Present Illness Date Seen by Provider: Oct 26, 2018 Time Seen by Provider: 12:10 Initial Comments The patient is a 58-year-old white female brought to the emergency room by ambulance. She is crying out in pain. She apparently fell forward on steps at her home. The EMS attendance believe that she fell forward striking her lower pierson on the step above her. She has had previous left total knee replacement as a function of arthritis. There is a curious significant swelling at the lower third of the tibia which is raised fluctuant and quite in color. There is an area of small abrasion in the distal aspect of this wound. Onset: just prior to arrival (approximately 15 minutes) Pain/Injury Location: left leg Allergies and Home Medications Allergies Coded Allergies: NSAIDS (Non-Steroidal Anti-Inflamma (Verified Allergy, Unknown, 08/03/18) PATIENT REPORTED THAT SHE HAS STAGE 4 RENAL DISEASE Sulfa (Sulfonamide Antibiotics) (Verified Allergy, Unknown, 08/03/18) diltiazem (Unverified Allergy, Unknown, 10/10/17) Home Medications Albuterol Sulfate 1 Puff Puff, 2 PUFF IH Q4H PRN for WHEEZING, (Reported) 1 PUFF = 90 MCG Ascorbic Acid 250 Mg Tab, 250 MG PO TID, (Reported) Aspirin 325 Mg Tablet, 325 MG PO DAILY, (Reported) Cefdinir 300 Mg Capsule, 300 MG PO BID Prescribed by: SURAJ LAND on 08/05/18 0928 Cetirizine HCl 10 Mg Tablet, 10 MG PO DAILY, (Reported) Cholecalciferol (Vitamin D3) 50,000 Unit Capsule, 50,000 UNIT PO Twice weekly Prescribed by: GHULAM BURNETT on 08/04/18 0752 Diclofenac Sodium 100 Gm Gel..gram., 100 GM TP BID, (Reported) Duloxetine HCl 60 Mg Capsule.dr, 60 MG PO DAILY, (Reported) Ezetimibe 10 Mg Tablet, 10 MG PO DAILY, (Reported) Ferrous Sulfate 325 Mg Tablet, 325 MG PO TID, (Reported) Fish Oil/Dha/Epa 1 Each Capsule, 1 EACH PO TID, (Reported) Fluticasone Propionate 16 Gm [place].susp, 1 SPRAY NS BID PRN for ALLERGIES/CONGESTION, (Reported) Fluticasone Propionate 250 Mcg Blst.w.dev, 1 PUFF IH BID, (Reported) Gemfibrozil 600 Mg Tablet, 600 MG PO BID, (Reported) Ipratropium [place] 15 Ml Naspr, 1-2 SPRAYS NS TID PRN for DRAINAGE, (Reported) Levocetirizine Dihydrochloride 5 Mg Tablet, 5 MG PO DAILY, (Reported) Levothyroxine Sodium 150 Mcg Tablet, 150 MCG PO DAILY, (Reported) Lisinopril 10 Mg Tablet, 10 MG PO DAILY, (Reported) Methylcellulose 500 Mg Tablet, 500 MG PO DAILY, (Reported) Metoprolol Succinate 50 Mg Tab.er.24h, 50 MG PO DAILY, (Reported) Pantoprazole Sodium 40 Mg Tablet.dr, 40 MG PO DAILY, (Reported) Pregabalin 150 Mg Capsule, 150 MG PO BID, (Reported) Ropinirole HCl 5 Mg Tablet, 5 MG PO DAILY, (Reported) Sumatriptan Succinate 100 Mg Tablet, 50 MG PO PRN PRN for HEADACHE 1/2 tablet orally as directed Prescribed by: GHULAM BURNETT on 08/04/18 0750 Patient Home Medication List Home Medication List Reviewed: Yes Review of Systems Constitutional: see HPI EENTM: other (long history of migraine headaches) Respiratory: no symptoms reported Cardiovascular: no symptoms reported Gastrointestinal: no symptoms reported Past Iuvptsy-Ytixlu-Gnlxfb Hx Patient Social History 2nd Hand Smoke Exposure: Yes Recent Foreign Travel: No Contact w/Someone Who Travel: No Recent Hopitalizations: No Immunizations Up To Date Tetanus Booster (TDap): Unknown Date of Influenza Vaccine: Jan 14, 2017 Seasonal Allergies Seasonal Allergies: No Past Medical History Surgeries: Yes ( lt endolymphatic shunt mastoids, esphageal zenker diverticulum removed) Appendectomy, Bladder Surgery, Section, Gallbladder, Hysterectomy, Orthopedic Respiratory: Yes (ASTHMA) Asthma, Sleep Apnea Currently Using CPAP: Yes Currently Using BIPAP: No Cardiac: Yes Coronary Artery Disease, High Cholesterol, Hypertension, Valvular Heart Disease Neurological: Yes Headaches /Migraines Reproductive Disorders: No Sexually Transmitted Disease: No Genitourinary: Yes Renal Failure Gastrointestinal: Yes (Zenker's diverticulia removed 2014) Gastroesophageal Reflux Musculoskeletal: Yes (FIBROMYALGIA) Arthritis, Fibromyalgia Endocrine: Yes (hypo thyroid) Hypothyroidsim HEENT: Yes Cataract Cancer: No Psychosocial: Yes Anxiety, Depression Integumentary: No Blood Disorders: No Adverse Reaction/Blood Tranf: No Family Medical History Arthritis 19 FATHER 19 MOTHER Asthma 19 FATHER 19 MOTHER Cardiovascular disease 19 FATHER 19 MOTHER Cataracts 19 FATHER 19 MOTHER Completed stroke 19 FATHER 19 MOTHER Congenital heart disease Coronary thrombosis 19 MOTHER Deafness or hearing loss 19 FATHER 19 MOTHER Diabetes mellitus 19 FATHER 19 MOTHER Headache disorder 19 MOTHER Hypercholesterolemia 19 MOTHER Hypertension 19 FATHER 19 MOTHER Kidney disease 19 MOTHER Myocardial infarction 19 FATHER 19 MOTHER Neoplasm 19 MOTHER (SKIN CA) Thyroid disease 19 MOTHER Visual disorder 19 MOTHER Physical Exam Vital Signs Vital Signs - First Documented 10/26/18 12:13 Temp 98.7 Pulse 95 Resp 18 B/P (MAP) 122/103 (109) Capillary Refill : Height, Weight, BMI Height: 5'1.00" Weight: 233lbs. 5.0oz. [phone]; 44.1 BMI Method:Stated General Appearance: moderate distress, severe distress HEENT: normal ENT inspection Neck: non-tender, full range of motion, supple, normal inspection Cardiovascular: normal peripheral pulses, regular rate, rhythm, no edema, no gallop, no JVD, no murmur Respiratory: chest non-tender, lungs clear, normal breath sounds, no respirator y distress, no accessory muscle use Gastrointestinal: normal bowel sounds, non tender, soft, no organomegaly, no pulsatile mass Back: normal inspection, no CVA tenderness, no vertebral tenderness Neurologic/Psychiatric: laboratory specialist II-XII nml as tested, no motor/sensory deficits, alert, normal mood/affect, oriented x 3 There was a large somewhat fluctuant and very tender mass at the proximal portion of the distal one third of the tibia. The skin over it appeared very white in color. This was ultimately determined to be hematoma as there was no fracture noted on the Progress/Results/Core Measures Results/Orders Lab Results Laboratory Tests Test 10/26/18 12:11 Range/Units White Blood Count 9.7 4.3-11.0 10^3/uL Red Blood Count 4.23 L 4.35-5.85 10^6/uL Hemoglobin 13.0 11.5-16.0 G/DL Hematocrit 40 35-52 % Mean Corpuscular Volume 95 80-99 FL Mean Corpuscular Hemoglobin 31 25-34 PG Mean Corpuscular Hemoglobin Concent 32 32-36 G/DL Red Cell Distribution Width 13.4 10.0-14.5 % Platelet Count 326 130-400 10^3/uL Mean Platelet Volume 10.0 7.4-10.4 FL Neutrophils (%) (Auto) 47 42-75 % Lymphocytes (%) (Auto) 37 12-44 % Monocytes (%) (Auto) 9 0-12 % Eosinophils (%) (Auto) 6 0-10 % Basophils (%) (Auto) 2 0-10 % Neutrophils # (Auto) 4.5 1.8-7.8 X 10^3 Lymphocytes # (Auto) 3.6 1.0-4.0 X 10^3 Monocytes # (Auto) 0.8 0.0-1.0 X 10^3 Eosinophils # (Auto) 0.6 H 0.0-0.3 10^3/uL Basophils # (Auto) 0.2 H 0.0-0.1 10^3/uL Sodium Level 145 135-145 MMOL/L Potassium Level 4.2 3.6-5.0 MMOL/L Chloride Level 106 98-107 MMOL/L Carbon Dioxide Level 23 21-32 MMOL/L Anion Gap 16 H 5-14 MMOL/L Blood Urea Nitrogen 22 H 7-18 MG/DL Creatinine 1.37 H 0.60-1.30 MG/DL Estimat Glomerular Filtration Rate 39 BUN/Creatinine Ratio 16 Glucose Level 129 H 70-105 MG/DL Calcium Level 10.2 H 8.5-10.1 MG/DL Corrected Calcium 8.5-10.1 MG/DL Total Bilirubin 0.3 0.1-1.0 MG/DL Aspartate Amino Transf (AST/SGOT) 21 5-34 U/L Alanine Aminotransferase (ALT/SGPT) 13 0-55 U/L Alkaline Phosphatase 111 40-136 U/L Total Protein 8.2 6.4-8.2 GM/DL Albumin 4.9 H 3.2-4.5 GM/DL My Orders Orders - ALEXANDRE ANTON MD Promethazine Injection (Phenergan Injec (10/26/18 12:30) Promethazine Injection (Phenergan Injec (10/26/18 12:15) Medications Given in ED Current Medications Medications Dose Ordered Sig/Sonia Route Start Time Stop Time Status Last Admin Dose Admin Ceftriaxone Sodium 1000 mg/ Sterile Water 10 ml @ 200 mls/hr ONCE ONCE IV 10/26/18 13:00 10/26/18 13:02 DC 10/26/18 13:03 200 MLS/HR Hydromorphone HCl 0.5 mg ONCE ONCE IV 10/26/18 12:45 10/26/18 12:46 DC 10/26/18 12:46 0.5 MG Hydromorphone HCl 1 mg ONCE ONCE IV 10/26/18 12:15 10/26/18 12:16 DC 10/26/18 12:11 1 MG Lidocaine HCl 1 ml ONCE ONCE INJ 10/26/18 12:45 10/26/18 12:46 DC 10/26/18 12:46 1 ML Promethazine HCl 25 mg ONCE ONCE IVP 10/26/18 12:30 10/26/18 12:31 DC 10/26/18 12:23 25 MG Vital Signs/I&O 10/26/18 12:13 Temp 98.7 Pulse 95 Resp 18 B/P (MAP) 122/103 (109) Departure Communication (Admissions) Mr. Aldridge anesthetized the wound and opened it with an 16-gauge needle. A modest amount of blood and serosanguineous material was evacuated. There was a great improvement in the mass of the hematoma and the patient experienced rather impressive relief of pain as well. Impression Primary Impression: large traumatic hematoma distal one third left tibia Disposition: 01 HOME, SELF-CARE Condition: Stable/Unchanged Departure-Patient Inst. Decision time for Depature: 14:36 Referrals: CAMERON OGLESBY DO (PCP) Primary Care Physician ZHANE BOSCH APRN (Family) Primary Care Physician Patient Instructions: Contusion (DC) Add. Discharge Instructions: All discharge instructions reviewed with patient and/or family. Voiced understanding. Check wound daily and replace gauze as necessary. For tonight place ice packs off and on and keep leg elevated. Antibiotics as directed Scripts Cefdinir (Cefdinir) 300 Mg Capsule 300 MG PO twice a day, #6 CAP Prov: ALEXANDRE ANTON MD 10/26/18 Images Extremities-Lower 1 - Swelling ALEXANDRE ANTON MD Oct 26, 2018 12:17
--- OUTSIDE RECORDS SUMMARY | 2018-10-26 12:17 | XMS REPORT ---
Author Author Migration, Doctor Organization [facility] Address Unknown Phone Unavailable Care Team Providers Care Scientist Electronics Name Role Phone Migration, Doctor Unavailable Unavailable PROBLEMS Type Condition ICD9-CM Code [id number] Code Onset Dates Condition Status SNOMED Code Problem Hypothyroid E03.9 Active 59127590 Problem Asthma J45.909 Active 348968387 Problem Insomnia G47.00 Active 913170298 Problem Depressed F32.9 Active 10791228 Problem Palpitations R00.2 Active 64561022 Problem Functional diarrhea K59.1 Active 17208519 Problem Chronic kidney disease, stage 4 (severe) N18.4 Active 865307820 Problem Degenerative tear of medial meniscus of left knee M23.204 Active 052046668 Problem Dysthymic disorder F34.1 Active 95200367 Problem Bipolar disorder, current episode manic without psychotic features F31.10 Active 795952088 Problem Generalized anxiety disorder F41.1 Active 98813209 Problem Restless leg G25.81 Active 87952377 Problem Coronary artery disease involving [place] coronary artery of [place] heart, angina presence unspecified I25.10 Active 2321837396742 Problem Hypokalemia E87.6 Active 09837473 Problem Other seasonal allergic rhinitis J30.2 Active 352517651 Problem Mixed stress and urge urinary incontinence N39.46 Active 085087398 Problem Fibromyalgia M79.7 Active 584657118 Problem Essential (primary) hypertension I10 Active 90943401 Problem Long-term use of high-risk medication Z79.899 Active 603294858 Problem Vitamin D deficiency E55.9 Active 02833913 Problem Anemia in chronic kidney disease D63.1 Active [id number] Problem Low back pain M54.5 Active 018190902 Problem Chronic kidney disease, unspecified N18.9 Active 667672545 Problem Abnormal chest CT R93.8 Active 468238449 Problem Primary osteoarthritis of left knee M17.12 Active 639713003 Problem Mood disorder F39 Active 31213047 Problem Stage 3 chronic kidney disease N18.3 Active 332700991 Problem Perimenopausal vasomotor symptoms N95.1 Active 344638525 Problem Asthma with acute exacerbation in adult J45.901 Active 130196506 Problem Other chronic pain G89.29 Active 07420619 Problem History of colon polyps Z86.010 Active 430780085 Problem History of anemia Z86.2 Active 248687415 Problem Body mass index (BMI) of 40.0-44.9 in adult Z68.41 Active 562732266 Problem Seasonal allergic rhinitis due to pollen J30.1 Active 47074880 Problem Restless leg syndrome G25.81 Active 75077419 Problem Chronic pain syndrome G89.4 Active 298726219 ALLERGIES No Information ENCOUNTERS Encounter Location Date Diagnosis [place] [address] [address] Nov, [place] [address] [address] Oct, [place] [address] [address] Oct, [place] [address] [address] Sep, [place] [address] [address] Sep, Generalized anxiety disorder F41.1 and Major depressive disorder, recurrent episode with anxious distress F33.9 [place] [address] [place] [id number] [place] [address] 17 Sep, 2018 Chronic kidney disease, stage 4 (severe) N18.4 [facility] [address] [place] [id number] [place] [address] 2018 Fibromyalgia M79.7 and Chronic pain syndrome G89.4 [place] [address] [address] [address] [address] 11 Sep, 2018 Chronic pain syndrome G89.4 [place] [address] [address] Sep, [facility] [address] [place] [address] Sep, Chronic pain syndrome G89.4 ; Fibromyalgia M79.7 and Morbid obesity E66.01 [facility] [address] [place] [id number] [place] [address] August, Generalized anxiety disorder F41.1 and Major depressive disorder, recurrent episode with anxious distress F33.9 [facility] [address] [place] [id number] [place] [address] August, Fibromyalgia M79.7 [facility] [address] [place] [id number] [place] [address] August, Restless leg syndrome G25.81 ; Vitamin D deficiency E55.9 ; Urinary tract infection without hematuria, site unspecified N39.0 ; Pain in right shoulder M25.511 ; Other chronic pain G89.29 ; Biceps tendinitis on right M75.21 and Morbid obesity E66.01 [facility] [address] [place] [address] Jul, Urinary tract infection without hematuria, site unspecified N39.0 and Morbid obesity E66.01 [facility] [address] [place] [address] Jul, [facility] [address] [place] [address] Jul, [facility] [address] [place] [id number] [place] [address] Jul, Fibromyalgia M79.7 [facility] [id number] [place] [address] Jul, Acute pain of right shoulder M25.511 [facility] [address] [place] [address] Jul, Acute pain of right shoulder M25.511 and Morbid obesity E66.01 [facility] [address] [place] [address] Jun, [place] [address] [place] [id number] [place] [address] Jun, Generalized anxiety disorder F41.1 and Major depressive disorder, recurrent episode with anxious distress F33.9 [place] [address] [place] [id number] [place] [address] Jun, [place] [address] [place] [id number] [place] [address] Jun, Fibromyalgia M79.7 [facility] [address] [address] Jun, Acute pain of right shoulder M25.511 ; Acute pain of right hip M25.551 and Morbid obesity E66.01 [place] [address] [place] [id number] [place] [address] 11 May, 2018 Burning with urination R30.0 ; Vaginal discharge N89.8 ; Chronic kidney disease, stage 4 (severe) N18.4 ; Body mass index (BMI) of 40.0-44.9 in adult Z68.41 and Morbid obesity E66.01 [place] [address] [place] [id number] [place] [address] 07 May, 2018 Fibromyalgia M79.7 [place] [address] [place] [id number] [place] [address] May, Generalized anxiety disorder F41.1 and Major depressive disorder, recurrent episode with anxious distress F33.9 [place] [address] [place] [id number] [place] [address] Apr, [place] [address] [place] [id number] [place] [address] Apr, Fibromyalgia M79.7 [facility] [id number] [place] [address] Mar, Acute UTI N39.0 and Dysuria R30.0 [facility] [address] [place] [address] 10 Mar, 2018 Fibromyalgia M79.7 [facility] [address] [place] [id number] [place] [address] 15 Feb, 2018 [facility] [address] [place] [id number] [place] [address] Feb, [facility] [address] [place] [id number] [place] [address] Feb, [facility] [address] [place] [id number] [place] [address] Feb, Fibromyalgia M79.7 [facility] [address] [place] [id number] [place] [address] 08 Feb, 2018 Complicated UTI (urinary tract infection) N39.0 [facility] [address] [place] [id number] [place] [address] Feb, [facility] [address] [place] [id number] [place] [address] Jan, Generalized anxiety disorder F41.1 and Major depressive disorder, recurrent episode with anxious distress F33.9 [facility] [id number] [place] [address] Jan, Acute conjunctivitis of left eye, unspecified acute conjunctivitis type H10.32 [facility] [address] [place] [id number] [place] [address] Jan, [facility] [address] [place] [id number] [place] [address] Jan, Acute non-recurrent maxillary sinusitis J01.00 ; Dysuria R30.0 ; Perimenopausal vasomotor symptoms N95.1 and Fibromyalgia M79.7 [facility] [id number] [place] [address] Dec, Vitamin D deficiency E55.9 [facility] [address] [place] [id number] [place] [address] Dec, Vitamin D deficiency E55.9 [place] [address] [address] 24 Dec, 2017 Vitamin D deficiency E55.9 [place] [address] [place] [id number] [place] [address] Dec, [place] [address] [address] Dec, Fibromyalgia M79.7 [place] [address] [address] Nov, [place] [address] [address] Nov, [place] [address] [address] Nov, [place] [address] [address] Nov, Fibromyalgia M79.7 ; Vision changes H53.9 ; Chest wall pain R07.89 and Chronic pain syndrome G89.4 [place] [address] [place] [id number] [place] [address] Nov, [place] [address] [place] [id number] [place] [address] Nov, Rash of hands R21 [place] [address] [address] Nov, Generalized anxiety disorder F41.1 and Major depressive disorder, recurrent episode with anxious distress F33.9 [place] [address] [address] Nov, Fibromyalgia M79.7 [place] [address] [place] [id number] [place] [address] Nov, Complicated UTI (urinary tract infection) N39.0 [place] [address] [place] [id number] [place] [address] Oct, [facility] [address] [address] Oct, Generalized anxiety disorder F41.1 and Major depressive disorder, recurrent episode with anxious distress F33.9 [facility] [address] [place] [id number] [place] [address] Oct, [facility] [address] [address] Oct, Fibromyalgia M79.7 [place] [address] [address] Sep, Restless leg syndrome G25.81 and Restless leg G25.81 [place] [address] [place] [id number] [place] [address] Sep, [place] [address] [address] Sep, Seasonal allergic rhinitis due to pollen J30.1 ; Screening for breast cancer Z12.31 ; Chest pain at rest R07.9 ; Restless leg syndrome G25.81 ; Essential (primary) hypertension I10 and Depressed F32.9 [facility] [address] [place] [id number] [place] [address] August, Fibromyalgia M79.7 [facility] [address] [place] [id number] [place] [address] August, [facility] [address] [place] [id number] [place] [address] August, [facility] [address] [address] August, Abnormal chest [address] R93.8 [facility] [address] [place] [id number] [place] [address] August, Generalized anxiety disorder F41.1 and Major depressive disorder, recurrent episode with anxious distress F33.9 [facility] [address] [place] [id number] [place] [address] August, Abnormal chest [address] R93.8 [place] [address] [place] [id number] [place] [address] Jul, [place] [address] [place] [id number] [place] [address] Jul, Chronic kidney disease, stage 4 (severe) N18.4 [facility] [address] [place] [id number] [place] [address] Jul, [place] [address] [address] Jul, Restless leg G25.81 ; Mixed stress and urge urinary incontinence N39.46 and Fibromyalgia M79.7 [place] [address] [place] [id number] [place] [address] Jul, Chronic kidney disease, stage 4 (severe) N18.4 [facility] [address] [place] [id number] [place] [address] Jun, Orthostatic hypotension I95.1 ; Chronic kidney disease, stage 4 (severe) N18.4 ; Chest wall discomfort R07.89 and Body mass index (BMI) of 40.0-44.9 in adult Z68.41 [place] [address] [place] [id number] [place] [address] Jun, [facility] [address] [place] [id number] [place] [address] Jun, Orthostatic hypotension I95.1 [place] [address] [place] [id number] [place] [address] Jun, [facility] [address] [place] [id number] [place] [address] Jun, Orthostatic hypotension I95.1 ; Dysuria R30.0 and Acute cystitis without hematuria N30.00 [place] [address] [address] Jun, [facility] [address] [place] [id number] [place] [address] Jun, Chronic kidney disease, stage 4 (severe) N18.4 [facility] [address] [place] [id number] [place] [address] Jun, Fibromyalgia M79.7 [facility] [address] [place] [id number] [place] [address] Jun, [facility] [address] [place] [id number] [place] [address] Jun, [facility] [address] [place] [id number] [place] [address] May, Abnormal chest [address] R93.8 and Stage 3 chronic kidney disease N18.3 [facility] [address] [place] [id number] [place] [address] May, Chronic kidney disease, stage 4 (severe) N18.4 [facility] [address] [place] [id number] [place] [address] May, Chronic kidney disease, stage 4 (severe) N18.4 [facility] [address] [place] [id number] [place] [address] May, Abnormal chest [address] R93.8 [facility] [address] [place] [id number] [place] [address] May, [facility] [address] [place] [id number] [place] [address] May, [facility] [address] [place] [id number] [place] [address] May, Generalized anxiety disorder F41.1 and Major depressive disorder, recurrent episode with anxious distress F33.9 [facility] [address] [place] [id number] [place] [address] May, Mood disorder F39 [facility] [address] [address] Apr, [facility] [address] [place] [address] Apr, Infected skin lesion L08.9 and Muscle strain of right shoulder region, initial encounter S46.911A [facility] [address] [place] [id number] [place] [address] Apr, Generalized anxiety disorder F41.1 and Major depressive disorder, recurrent episode with anxious distress F33.9 [place] [address] [place] [id number] [place] [address] Apr, [facility] [address] [place] [address] Apr, Recent urinary tract infection Z87.440 and Hypothyroid E03.9 [facility] [address] [place] [address] Apr, Generalized anxiety disorder F41.1 and Major depressive disorder, recurrent episode with anxious distress F33.9 [facility] [address] [place] [id number] [place] [address] Apr, Recent urinary tract infection Z87.440 [facility] [address] [place] [address] Mar, [facility] [id number] [place] [address] Mar, Dysuria R30.0 ; Acute cystitis without hematuria N30.00 and BMI 40.0- 44.9, adult Z68.41 [facility] [address] [place] [address] Mar, [facility] [id number] [place] [address] Mar, [facility] [address] [place] [id number] [place] [address] Mar, Generalized anxiety disorder F41.1 and Major depressive disorder, recurrent episode with anxious distress F33.9 [facility] [address] [place] [id number] [place] [address] Feb, Conjunctivitis, bacterial H10.9 [facility] [address] [place] [id number] [place] [address] Feb, [facility] [address] [address] Feb, Conjunctivitis, bacterial H10.9 [place] [address] [address] Feb, [facility] [address] [place] [id number] [place] [address] Feb, Dysuria R30.0 ; Acute cystitis N30.00 and BMI 40.0-44.9, adult Z68.41 [place] [address] [place] [id number] [place] [address] Feb, [place] [address] [address] Feb, Generalized anxiety disorder F41.1 and Major depressive disorder, recurrent episode with anxious distress F33.9 [place] [address] [place] [id number] [place] [address] Feb, Mood disorder F39 and BMI 40.0-44.9, adult Z68.41 [place] [address] [place] [id number] [place] [address] Jan, [place] [address] [address] Jan, [place] [address] [place] [id number] [place] [address] Jan, Hypothyroid E03.9 [place] [address] [place] [id number] [place] [address] Jan, [place] [address] [place] [id number] [place] [address] Jan, Chronic kidney disease, unspecified N18.9 ; Hypokalemia E87.6 ; Essential (primary) hypertension I10 ; Fibromyalgia M79.7 ; Coronary artery disease involving [place] coronary artery of [place] heart, angina presence unspecified I25.10 ; Hypothyroid E03.9 and Encounter for immunization Z23 [place] [address] [place] [id number] [place] [address] Jan, Hypothyroid E03.9 [place] [address] [address] Jan, [place] [address] [place] [id number] [place] [address] Dec, Vitamin D deficiency E55.9 [place] [address] [place] [id number] [place] [address] 28 Dec, 2016 Primary osteoarthritis of left knee M17.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 [place] [address] [place] [id number] [place] [address] 19 Dec, 2016 Fibromyalgia M79.7 [place] [address] [place] [id number] [place] [address] 18 Dec, 2016 Mood disorder F39 [place] [address] [place] [id number] [place] [address] 13 Dec, 2016 [place] [address] [place] [id number] [place] [address] 13 Dec, 2016 Generalized anxiety disorder F41.1 and Major depressive disorder, recurrent episode with anxious distress F33.9 [place] [address] [place] [id number] [place] [address] 11 Dec, 2016 [place] [address] [place] [id number] [place] [address] 08 Dec, 2016 Streptococcal meningitis G00.2 [facility] [address] [facility] [id number] [address] 07 Dec, 2016 Streptococcal meningitis G00.2 [facility] [address] [facility] [id number] [address] 07 Dec, 2016 [facility] [address], [place] [address] Dec, Streptococcal meningitis G00.2 [facility] [address], [place] [address] Dec, [facility] [id number] [place] [address] Dec, Major depressive disorder, recurrent episode with anxious distress F33.9 [facility] [address], [place] [address] Nov, Fever, unspecified fever cause R50.9 [facility] [address], [place] [address] Nov, [facility] [id number] [place] [address] Nov, Hypothyroid E03.9 [facility] [address] [place] [address] Nov, Generalized anxiety disorder F41.1 and Major depressive disorder, recurrent episode with anxious distress F33.9 [facility] [address], [place] [address] Nov, [facility] [address] [id number] Oct, Dental examination Z01.20 [facility] [address] [place] [address] Oct, Generalized anxiety disorder F41.1 and Major depressive disorder, recurrent episode with anxious distress F33.9 [facility] [id number] [place] [id number] Oct, Chronic kidney disease, stage 4 (severe) N18.4 [facility] [address], [place] [address] Oct, [place] [address] [place] [address] Oct, Fibromyalgia M79.7 [facility] [address] [place] [id number] [place] [id number] Oct, [facility] [address] [place] [id number] [place] [address] Oct, Generalized anxiety disorder F41.1 ; Major depressive disorder, recurrent episode with anxious distress F33.9 and Bipolar disorder, current episode manic without psychotic features F31.10 [facility] [facility] [id number], [place] [address] Sep, [facility] [address] [place] [id number] [place] [address] Sep, [place] [id number], [place] [address] Sep, Vitamin D deficiency E55.9 [facility] [address], [place] [address] Sep, Vitamin D deficiency E55.9 [place] [facility] [address] [place] [address] Sep, [place] [address] [place] [address] Sep, Chronic kidney disease, stage 4 (severe) N18.4 ; Hypothyroid E03.9 ; Restless leg G25.81 ; Fibromyalgia M79.7 ; Essential (primary) hypertension I10 ; Vitamin D deficiency E55.9 ; Dyspepsia R10.13 ; Anemia in chronic kidney disease D63.1 ; Chronic kidney disease, unspecified N18.9 ; Coronary artery disease involving [place] coronary artery of [place] heart, angina presence unspecified I25.10 ; Screening breast examination Z12.39 and Low back pain M54.5 [place] [id number] [place] [address] August, Generalized anxiety disorder F41.1 and Major depressive disorder, recurrent episode with anxious distress F33.9 [place] [id number] [place] [address] August, Generalized anxiety disorder F41.1 and Major depressive disorder, recurrent episode with anxious distress F33.9 [place] [id number] [place] [address] August, Fibromyalgia M79.7 [place] [id number] [place] [address] Jul, Generalized anxiety disorder F41.1 and Major depressive disorder, recurrent episode with anxious distress F33.9 [place] [id number] [place] [address] Jul, Fibromyalgia M79.7 [place] [id number] [place] [address] Jul, Generalized anxiety disorder F41.1 [place] [id number] [place] [address] May, [place] [id number] [place] [address] May, Hypothyroid E03.9 [place] [id number] [place] [address] May, Chronic kidney disease, stage 4 (severe) [...] [place] heart, angina presence unspecified I25.10 [facility] [id number] [place] [address] May, Vitamin D deficiency, unspecified E55.9 [facility] [id number] [place] [address] May, Generalized anxiety disorder F41.1 and Major depressive disorder, recurrent episode with anxious distress F33.9 [facility] [id number] [place] [address] Apr, Pain in right knee M25.561 and Pain in left knee M25.562 [place] [id number] [place] [address] Apr, [facility] [id number] [place] [address] Apr, [place] [id number] [place] [address] Apr, [facility] [id number] [place] [address] Mar, Generalized anxiety disorder F41.1 and Major depressive disorder, recurrent episode with anxious distress F33.9 [place] [id number] [place] [address] Mar, Generalized anxiety disorder F41.1 and Major depressive disorder, recurrent episode with anxious distress F33.9 [facility] [id number] [place] [address] Mar, [facility] [id number] [place] [address] Mar, [facility] [id number] [place] [address] Mar, [facility] [id number] [place] [address] Mar, Asthma J45.909 and Fibromyalgia M79.7 [facility] [id number] [place] [address] Mar, Chronic kidney disease, stage 4 (severe) N18.4 ; Vitamin D deficiency E55.9 and Essential (primary) hypertension I10 [facility] [id number] [place] [address] Feb, [facility] [id number] [place] [address] Feb, Dysuria R30.0 ; Mixed stress and urge urinary incontinence N39.46 ; Fibromyalgia M79.7 and Chronic kidney disease, stage IV (severe) N18.4 [place] [address] [address] Feb, Chronic kidney disease, stage 4 (severe) N18.4 [place] [id number] [place] [address] Feb, Chronic kidney disease, stage 4 (severe) N18.4 [place] [id number] [place] [address] Feb, [place] [id number] [place] [address] Feb, Vitamin D deficiency, unspecified E55.9 [facility] [id number] [place] [address] Jan, [facility] [id number] [place] [address] Jan, [facility] [id number] [place] [address] Dec, [facility] [id number] [place] [address] Dec, Chronic kidney disease, stage 4 (severe) N18.4 [facility] [id number] [place] [address] Dec, Dysthymic disorder F34.1 and Generalized anxiety disorder F41.1 [facility] [id number] [place] [address] Dec, [facility] [address] [address] Dec, [place] [address] [address] Dec, Dysthymic disorder F34.1 and Generalized anxiety disorder F41.1 [place] [address] [address] Dec, Dysuria R30.0 ; Chronic kidney disease, stage 4 (severe) N18.4 ; Hypertension I10 ; Dyspepsia R10.13 ; Yeast dermatitis B37.2 ; Palpitations R00.2 ; Hypothyroid E03.9 ; Functional diarrhea K59.1 and Other seasonal allergic rhinitis J30.2 [facility] [address] [address] Dec, [facility] [address] [address] Nov, Dysuria R30.0 and Stress incontinence N39.3 [place] [id number] [place] [address] Nov, [place] [id number] [place] [address] Nov, [place] [address] [address] Nov, Osteoarthritis of knees, bilateral M17.0 [place] [address] [address] Nov, Dysthymic disorder F34.1 and Generalized anxiety disorder F41.1 [place] [id number] [place] [address] Nov, [place] [address] [address] Nov, [facility] [id number] [place] [address] Nov, Urgency of urination R39.15 [facility] [id number] [place] [address] Nov, [place] [id number] [place] [address] Nov, Chronic kidney disease, stage 4 (severe) N18.4 [place] [id number] [place] [address] Oct, Hypertension I10 ; Coronary artery disease involving [place] coronary artery of [place] heart, angina presence unspecified I25.10 ; Palpitations R00.2 ; Hypothyroid E03.9 ; Right foot pain M79.671 ; Functional diarrhea K59.1 and Other seasonal allergic rhinitis J30.2 [place] [id number] [place] [address] Oct, Dysthymic disorder F34.1 and Generalized anxiety disorder F41.1 [place] [id number] [place] [address] Sep, [place] [id number] [place] [address] Sep, [place] [id number] [place] [address] Sep, [facility] [id number] [place] [address] Sep, [place] [id number] [place] [address] Sep, [facility] [id number] [place] [address] Sep, Dysthymic disorder F34.1 and Generalized anxiety disorder F41.1 [place] [id number] [place] [address] 16 Sep, 2015 Asthma with acute exacerbation in adult J45.901 ; Dysuria R30.0 ; Chronic kidney disease, stage 4 (severe) N18.4 and History of anemia Z86.2 [place] [id number] [place] [address] 2015 Generalized anxiety disorder F41.1 and Dysthymic disorder F34.1 [place] [address] [address] August, Screening breast examination Z12.39 and Acute recurrent maxillary sinusitis J01.01 [place] [address] [address] August, Osteoarthritis of knees, bilateral M17.0 [place] [id number] [place] [address] August, Chronic kidney disease, stage 4 (severe) N18.4 ; Acute non-recurrent maxillary sinusitis J01.00 ; Urinary problem R39.89 ; Bowel habit changes R19.4 ; Functional diarrhea K59.1 and History of colon polyps Z86.010 [place] [address] [address] Jul, Dysthymic disorder F34.1 and Generalized anxiety disorder F41.1 [place] [id number] [place] [address] Jul, [place] [id number] [place] [address] Jul, Dysthymic disorder F34.1 ; Generalized anxiety disorder F41.1 and long-term use of drug Z79.899 [place] [id number] [place] [address] Jul, [place] [id number] [place] [address] Jun, [place] [address] [address] Jun, [facility] [id number] [place] [address] May, [place] [id number] [place] [address] May, Dysthymic disorder F34.1 and Generalized anxiety disorder F41.1 [place] [id number] [place] [address] Apr, Kidney disease N28.9 [place] [id number] [place] [address] Apr, Generalized anxiety disorder F41.1 and Dysthymic disorder F34.1 [place] [id number] [place] [address] Apr, Chronic kidney disease, stage 4 (severe) N18.4 [place] [id number] [place] [address] Apr, Generalized anxiety disorder F41.1 ; Major depression, recurrent F33.9 and Sleep disturbance G47.9 [place] [id number] [place] [address] Mar, Generalized anxiety disorder F41.1 and Dysthymic disorder F34.1 [place] [id number] [place] [address] Mar, Generalized anxiety disorder F41.1 ; Dysthymic disorder F34.1 and Insomnia G47.00 [place] [id number] [place] [address] Mar, [place] [id number] [place] [address] Mar, [place] [id number] [place] [address] Mar, Osteoarthritis of knees, bilateral M17.0 [place] [id number] [place] [address] Mar, Hypertension I10 ; Hypothyroid E03.9 ; Dysthymic disorder F34.1 ; Chronic kidney disease, stage 4 (severe) N18.4 and Nausea & vomiting R11.2 [place] [id number] [place] [address] Mar, Generalized anxiety disorder F41.1 ; Dysthymic disorder F34.1 and Insomnia G47.00 [place] [address] [address] Mar, Dehydration E86.0 ; Chronic kidney disease, stage 4 (severe) N18.4 and Nausea & vomiting R11.2 [facility] [id number] [place] [address] 08 Mar, 2015 Gastroenteritis K52.[address] [address] Mar, [place] [address] [address] Mar, [address] [address] Feb, Dysthymic disorder F34.1 and Generalized anxiety disorder F41.1 [place] [id number] [place] [address] Jan, UTI (urinary tract infection) N39.0 ; Asthma J45.909 ; Coronary artery disease involving [place] coronary artery of [place] heart, angina presence unspecified I25.10 ; Hypertension I10 ; Hypothyroid E03.9 ; Vitamin D deficiency E55.9 ; Insomnia G47.00 ; Palpitations R00.2 ; Depressed F32.9 ; Restless leg G25.81 and Anxiety F41.9 [place] [id number] [place] [address] Jan, Dysthymic disorder F34.1 and Generalized anxiety disorder F41.1 [place] [id number] [place] [address] 07 Jan, 2015 [place] [id number] [place] [address] Dec, [place] [id number] [place] [address] 28 Dec, 2014 Alkalosis 276.3 ; Chronic kidney disease, Stage IV (severe) 585.4 ; Hyperpotassemia 276.7 ; Secondary hyperparathyroidism, renal 588.81 ; Proteinuria 791.0 ; Unspecified vitamin D deficiency 268.9 ; Anemia in chronic kidney disease 285.21 ; Other and unspecified hyperlipidemia 272.4 ; Hypertension, essential, benign 401.1 and Chronic kidney disease (CKD), stage III (moderate) 585.3 [place] [id number] [place] [address] 16 Dec, [address] [address] Dec, Depressive disorder, not elsewhere classified 311 and Generalized anxiety disorder 300.02 [place] [id number] [place] [address] Dec, [place] [id number] [place] [address] Dec, [place] [id number] [place] [address] Nov, Depressive disorder, not elsewhere classified 311 and Generalized anxiety disorder 300.02 [place] [id number] [place] [address] Nov, Arthritis of both knees 716.[address] [address] 07 Nov, 2014 PAF (paroxysmal atrial fibrillation) 427.31 ; CAD (coronary artery disease) 414.00 ; Chest pain 786.50 and Chronic kidney disease (CKD) stage G4/A1, severely decreased glomerular filtration rate (GFR) between 15-29 mL/min/1.73 square meter and albuminuria creatinine ratio less than 30 mg/g 585.4 [place] [id number] [place] [address] Oct, Coronary atherosclerosis of unspecified type of vessel, [place] or graft 414.00 ; Chronic kidney disease, Stage IV (severe) 585.4 ; Hypertension 401.9 and Edema 782.[address] [address] Oct, Depressive disorder, not elsewhere classified 311 and Generalized anxiety disorder 300.02 [place] [address] Oct, Depressive disorder, not elsewhere classified 311 and Generalized anxiety disorder 300.02 [place] [id number] [place] [address] Oct, [address] [address] Oct, [address] [address] Sep, [address] [address] Sep, Chronic kidney disease, Stage IV (severe) 585.4 [place] [id number] [place] [address] Sep, [address] [address] Sep, Coronary atherosclerosis of unspecified type of vessel, [place] or graft 414.00 ; Hypertension 401.9 ; Edema 782.3 and Hypothyroidism 244.9 [place] [id number] [place] [address] Sep, Coronary atherosclerosis of unspecified type of vessel, [place] or graft 414.00 ; Hypertension 401.9 ; Fibromyalgia 729.1 ; Edema 782.3 ; Hypothyroidism 244.9 and Anemia 285.9 [address] [place] [address] Sep, Anxiety disorder, unspecified 300.00 and Depressive disorder, not elsewhere classified 311 [facility] [id number] [address] Sep, [facility] [id number] [place] [address] August, Generalized anxiety disorder 300.02 [facility] [id number] [place] [address] August, Closed fracture of lateral malleolus 824.2 [facility] [id number] [place] [address] Jul, [facility] [id number] [address] Jul, [facility] [id number] [place] [address] Jun, [facility] [address] [place] [address] Jun, [facility] [id number] [address] Jun, [facility] [address] [place] [address] Jun, [facility] [address] [place] [address] Jun, [facility] [address] [place] [address] Jun, [facility] [address] [place] [address] May, [facility] [address] [place] [address] May, [facility] [address] [place] [address] May, 2014 [facility] [place] [facility] [address] [id number] [place] [address] 18 May, 2014 [facility] [place] [facility] [address] [id number] [place] [address] 16 May, 2014 [facility] [place] [facility] [address] [facility] [id number] [place] [address] 16 May, 2014 [facility] [place] [facility] [address] [id number] [place] [address] 13 May, 2014 [facility] [place] [facility] [address] [id number] [place] [address] 13 May, 2014 [facility] [place] [facility] [address] [facility] [id number] [place] [address] 10 May, 2014 [facility] [place] [facility] [address] [facility] [id number] [place] [address] 10 May, 2014 [facility] [place] [facility] [address] [facility] [id number] [place] [address] Apr, [facility] [place] [facility] [address] [facility] [id number] [place] [address] Apr, [facility] [place] [facility] [address] [facility] [id number] [place] [address] Mar, [facility] [place] [facility] [address] [facility] [id number] [place] [address] Mar, [facility] [place] [facility] [address] [facility] [id number] [place] [address] Mar, [facility] [place] [facility] [address] [id number] [place] [address] 15 Mar, 2014 [facility] [place] [facility] [address] [facility] [id number] [place] [address] 15 Mar, 2014 [facility] [place] [facility] [address] [facility] [id number] [place] [address] 15 Mar, 2014 [facility] [place] [facility] [address] [id number] [place] [address] Mar, [facility] [place] [facility] [address] [id number] [place] [address] Feb, [facility] [place] [facility] [address] [id number] [place] [address] Feb, [facility] [place] [facility] [address] [id number] [place] [address] Feb, [facility] [place] [facility] [address] [id number] [place] [address] Jan, [facility] [place] [facility] [address] [id number] [place] [address] Jan, [facility] [place] [facility] [address] [id number] [place] [address] Jan, [facility] [place] [facility] [address] [id number] [place] [address] Jan, [facility] [place] [facility] [address] [id number] [place] [address] Jan, [facility] [place] [facility] [address] [id number] [place] [address] Jan, [facility] [place] [facility] [address] [id number] [place] [address] Jan, [facility] [place] [facility] [address] [id number] [place] [address] Jan, [facility] [place] [facility] [address] [id number] [place] [address] Jan, [facility] [place] [facility] [address] [id number] [place] [address] Jan, [facility] [place] [facility] [address] [id number] [place] [address] Nov, [facility] [place] [facility] [address] [id number] [place] [address] Nov, [facility] [place] [facility] [address] [id number] [place] [address] Nov, [facility] [place] [facility] [address] [id number] [place] [address] Oct, [facility] [place] [facility] [address] [id number] [place] [address] Oct, [facility] [place] [facility] [address] [id number] [place] [address] Oct, [facility] [place] [facility] [address] [id number] [place] [address] Oct, [facility] [place] [facility] [address] [id number] [place] [address] Oct, [facility] [place] [facility] [address] [id number] [place] [address] Oct, [facility] [place] [facility] [address] [id number] [place] [address] Oct, [facility] [place] [facility] [address] [id number] [place] [address] Oct, [facility] [place] [facility] [address] [id number] [place] [address] Oct, [facility] [place] [facility] [address] [id number] [place] [address] Sep, [facility] [place] [facility] [address] [id number] [place] [address] Sep, [facility] [place] [facility] [address] [id number] [place] [address] Sep, [facility] [place] [facility] [address] [id number] [place] [address] Sep, [facility] [place] [facility] [address] [id number] [place] [address] Sep, [facility] [place] [facility] [address] [id number] [place] [address] Sep, [facility] [place] [facility] [address] [id number] [place] [address] Sep, [facility] [place] [facility] [address] [id number] [place] [address] Sep, [facility] [place] [facility] [address] [id number] [place] [address] Sep, [facility] [place] [facility] [address] [id number] [place] [address] August, [facility] [place] [facility] [address] [id number] [place] [address] August, [facility] [place] [facility] [address] [id number] [place] [address] August, [facility] [place] [facility] [address] [id number] [place] [address] August, [facility] [place] [facility] [address] [id number] [place] [address] August, [facility] [place] [facility] [address] [id number] [place] [address] August, [facility] [place] [facility] [address] [id number] [place] [address] Jul, [facility] [place] [facility] [address] [id number] [place] [address] Jul, [facility] [place] [facility] [address] [id number] [place] [address] Jul, [facility] [place] [facility] [address] [id number] [place] [address] Jul, [facility] [place] [facility] [address] [id number] [place] [address] Jul, [facility] [place] [facility] [address] [id number] [place] [address] Jul, [facility] [place] [facility] [address] [id number] [place] [address] Jun, [facility] [place] [facility] [address] [id number] [place] [address] Jun, [facility] [place] [facility] [address] [id number] [place] [address] May, [facility] [place] [facility] [address] [id number] [place] [address] May, [facility] [place] [facility] [address] [id number] [place] [address] May, [facility] [place] [facility] [address] [id number] [place] [address] May, [facility] [place] [facility] [address] [id number] [place] [address] Apr, [facility] [place] [facility] [address] [id number] [place] [address] Apr, [facility] [place] [facility] [address] [id number] [place] [address] Mar, [facility] [place] [facility] [address] [id number] [place] [address] Mar, [facility] [place] [facility] [address] [facility] [id number] [place] [address] Mar, [facility] [place] [facility] [address] [id number], [place] [address] Mar, [facility] [place] [facility] [address] [id number] [place] [address] Mar, [facility] [place] [facility] [address] [id number] [place] [address] Mar, [facility] [place] [facility] [address] [facility] [id number] [place] [address] Feb, [facility] [place] [facility] [address] [id number], [place] [address] Feb, [facility] [place] [facility] [address] [id number] [place] [address] Feb, [facility] [place] [facility] [address] [id number] [place] [address] Feb, [facility] [place] [facility] [address] [id number] [place] [address] Feb, [facility] [place] [facility] [address] [id number] [place] [address] Feb, [facility] [place] [facility] [address] [id number] [place] [address] Jan, [facility] [place] [facility] [address] [id number] [place] [address] Jan, [facility] [place] [facility] [address] [facility] [id number] [place] [address] Jan, [facility] [place] [facility] [address] [id number] [place] [address] Jan, [facility] [place] [facility] [address] [facility] [id number] [place] [address] Jan, [facility] [place] [facility] [address] [facility] [id number] [place] [address] Jan, [facility] [place] [facility] [address] [id number] [place] [address] Dec, [facility] [place] [facility] [address] [id number] [place] [address] Dec, [facility] [place] [facility] [address] [id number] [place] [address] Nov, [facility] [place] [facility] [address] [id number] [place] [address] Nov, [facility] [place] [facility] [address] [facility] [id number] [place] [address] Oct, [facility] [place] [facility] [address] [id number] [place] [address] Oct, [facility] [address] [id number] [place] [address] Oct, [facility] [place] [facility] [address] [id number] [place] [address] Oct, [facility] [place] [facility] [address] [id number] [place] [address] Oct, [facility] [place] [facility] [address] [id number] [place] [address] Oct, [facility] [place] [facility] [address] [id number] [place] [address] Sep, [facility] [place] [facility] [address] [id number] [place] [address] Sep, [facility] [place] [facility] [address] [id number] [place] [address] Sep, [facility] [address] [id number] [place] [address] Sep, [facility] [place] [facility] [address] [id number] [place] [address] August, [facility] [place] [facility] [address] [id number] [place] [address] August, [facility] [place] [facility] [address] [id number] [place] [address] August, [facility] [place] [facility] [address] [id number] [place] [address] August, [facility] [place] [facility] [address] [id number] [place] [address] August, [facility] [place] [facility] [address] [id number] [place] [address] Jul, [facility] [place] [facility] [address] [id number] [place] [address] Jul, [facility] [place] [facility] [address] [id number] [place] [address] Jul, [facility] [place] [facility] [address] [id number] [place] [address] Jul, [facility] [place] [facility] [address] [id number] [place] [address] Jul, [facility] [place] [facility] [address] [id number] [place] [address] Jul, [facility] [place] [facility] [address] [id number] [place] [address] Jul, [facility] [place] [facility] [address] [id number] [place] [address] Jul, [facility] [place] [facility] [address] [id number] [place] [address] Jul, [facility] [place] [facility] [address] [id number] [place] [address] Jul, [facility] [address] [facility] [id number] [address] Jun, [facility] [place] [facility] [address] [id number], [place] [address] Jun, [facility] [place] [facility] [address] [id number], [place] [address] Jun, [facility] [place] [facility] [address] [id number], [place] [address] Jun, [facility] [place] [facility] [address] [id number] [place] [address] Jun, [facility] [place] [facility] [address] [id number] [place] [address] May, [facility] [place] [facility] [address] [id number], [place] [address] May, [facility] [place] [facility] [address] [id number], [place] [address] 07 May, 2012 [facility] [address] [id number] [place] [address] Apr, [facility] [address] [id number] [place] [address] Apr, [facility] [address] [facility] [id number] [place] [address] Apr, [facility] [address] [id number] [place] [address] Apr, [facility] [address] [facility] [id number] [place] [address] Apr, [facility] [address] [facility] [id number] [place] [address] Apr, [facility] [address] [id number] [address] Mar, [facility] [address] [id number] [place] [address] Mar, [facility] [address] [id number] [address] Mar, [facility] [address] [facility] [id number] [place] [address] Mar, [facility] [address] [id number] [place] [address] Feb, [facility] [place] [facility] [address] [id number], [place] [address] Feb, [facility] [place] [facility] [address] [id number] [place] [address] Feb, [facility] [place] [facility] [address] [facility] [id number], [place] [address] Feb, [facility] [address] [id number], [place] [address] Feb, [facility] [place] [facility] [address] [id number] [place] [address] Feb, [facility] [place] [facility] [address] [id number] [place] [address] Feb, [facility] [place] [facility] [address] [id number] [place] [address] Feb, [facility] [place] [facility] [address] [id number] [place] [address] Feb, [facility] [place] [facility] [address] [id number] [place] [address] Feb, [facility] [place] [facility] [address] [id number] [place] [address] Feb, [facility] [place] [facility] [address] [id number] [place] [address] Feb, [facility] [place] [facility] [address] [id number] [place] [address] Feb, [facility] [place] [facility] [address] [id number] [place] [address] Feb, [facility] [place] [facility] [address] [id number] [place] [address] Feb, [facility] [place] [facility] [address] [id number] [place] [address] Feb, [facility] [place] [facility] [address] [id number] [place] [address] Jan, [facility] [place] [facility] [address] [id number] [place] [address] Jan, [facility] [place] [facility] [address] [id number] [place] [address] Jan, [facility] [place] [facility] [address] [id number] [place] [address] Jan, [facility] [place] [facility] [address] [id number] [place] [address] 30 Jan, 2012 [facility] [place] [facility] [address] [id number] [place] [address] Jan, [facility] [place] [facility] [address] [id number] [place] [address] Jan, [facility] [place] [facility] [address] [id number] [place] [address] Jan, [facility] [place] [facility] [address] [id number] [place] [address] 16 Jan, 2012 [facility] [place] [facility] [address] [id number] [place] [address] Jan, [facility] [place] [facility] [address] [id number] [place] [address] Jan, [facility] [place] [facility] [address] [id number] [place] [address] Jan, [facility] [place] [facility] [address] [id number], [place] [address] 26 Sep2011 [facility] [place] [facility] [address] [id number], [place] [address] 26 Sep2011 [facility] [place] [facility] [address] [id number], [place] [address] 24 Sep2011 [facility] [place] [facility] [address] [id number], [place] [address] 23 Sep, 2011 [facility] [place] [facility] [address] [id number], [place] [address] 22 Sep, 2011 [facility] [place] [facility] [address] [id number], [place] [address] 21 Sep2011 [facility] [place] [facility] [address] [facility] [id number], [place] [address] 20 Sep, 2011 [facility] [place] [facility] [address] [id number], [place] [address] 20 Dec, 2011 [facility] [place] [facility] [address] [id number] [place] [address] 07 Sep, 2011 [facility] [place] [facility] [address] [id number] [place] [address] 06 Sep, 2011 [facility] [place] [facility] [address] [id number] [place] [address] 06 Dec, 2011 [facility] [place] [facility] [address] [id number] [place] [address] 05 Dec, 2011 [facility] [place] [facility] [address] [id number] [place] [address] 23 Nov, 2011 [facility] [place] [facility] [address] [id number] [place] [address] 17 Nov, 2011 [facility] [place] [facility] [address] [id number] [place] [address] 13 Nov, 2011 [facility] [place] [facility] [address] [id number] [place] [address] Nov, [facility] [place] [facility] [address] [id number] [place] [address] 08 Nov, 2011 [facility] [place] [facility] [address] [id number] [place] [address] Nov, [facility] [place] [facility] [address] [id number] [place] [address] Nov, [facility] [place] [facility] [address] [id number] [place] [address] Nov, [facility] [place] [facility] [address] [id number] [place] [address] Oct, [facility] [place] [facility] [address] [id number] [place] [address] Oct, [facility] [place] [facility] [address] [id number] [place] [address] Oct, [facility] [place] [facility] [address] [id number] [place] [address] Oct, [facility] [place] [facility] [address] [id number] [place] [address] Oct, [facility] [place] [facility] [address] [id number] [place] [address] Oct, [facility] [address] [id number] [place] [address] Oct, [facility] [place] [facility] [address] [id number] [place] [address] Sep, [facility] [address] [id number] [place] [address] Sep, [facility] [place] [facility] [address] [id number] [place] [address] August, [facility] [address] [id number] [place] [address] August, [facility] [address] [id number] [place] [address] August, [facility] [address] [id number] [place] [address] August, [facility] [address] [id number] [place] [address] Jul, [facility] [place] [facility] [address] [id number] [place] [address] Jul, [facility] [place] [facility] [address] [id number] [place] [address] Jul, [facility] [place] [facility] [address] [id number] [place] [address] Jul, [facility] [place] [facility] [address] [id number] [place] [address] Jul, [facility] [place] [facility] [address] [id number] [place] [address] Jul, [facility] [place] [facility] [address] [id number] [place] [address] Jul, [facility] [address] [id number] [place] [address] Jul, [facility] [place] [facility] [address] [id number] [place] [address] Jul, [facility] [place] [facility] [address] [id number] [place] [address] 23 Jun, 2011 [facility] [place] [facility] [address] [id number] [place] [address] 19 Jun, 2011 [facility] [place] [facility] [address] [id number] [place] [address] 15 Jun, 2011 [facility] [place] [facility] [address] [id number] [place] [address] 14 Jun, 2011 [facility] [address] [facility] [id number] [place] [address] Jun, [facility] [place] [facility] [address] [id number] [place] [address] Jun, [facility] [place] [facility] [address] [id number] [place] [address] Jun, [facility] [place] [facility] [address] [facility] [id number] [place] [address] May, [facility] [place] [facility] [address] [id number] [place] [address] 24 May, 2011 [facility] [place] [facility] [address] [id number] [place] [address] May, [facility] [place] [facility] [address] [id number] [place] [address] May, [facility] [place] [facility] [address] [id number] [place] [address] May, [facility] [place] [facility] [address] [facility] [id number] [place] [address] Apr, [facility] [place] [facility] [address] [id number] [place] [address] Apr, [facility] [place] [facility] [address] [id number] [place] [address] Apr, [facility] [place] [facility] [address] [id number] [place] [address] Apr, [facility] [place] [facility] [address] [id number] [place] [address] Apr, [facility] [place] [facility] [address] [id number] [place] [address] Mar, [facility] [place] [facility] [address] [id number] [place] [address] Mar, [facility] [place] [facility] [address] [id number] [place] [address] Mar, [facility] [place] [facility] [address] [id number] [place] [address] Mar, [facility] [place] [facility] [address] [id number] [place] [address] Mar, [facility] [place] [facility] [address] [id number] [place] [address] Mar, [facility] [place] [facility] [address] [id number] [place] [address] Mar, [facility] [place] [facility] [address] [id number] [place] [address] Feb, [facility] [place] [facility] [address] [id number] [place] [address] Feb, [facility] [place] [facility] [address] [id number] [place] [address] Feb, [facility] [place] [facility] [address] [id number] [place] [address] Feb, [facility] [place] [facility] [address] [id number] [place] [address] 31 Jan, 2011 [facility] [address] [id number] [place] [address] Jan, [facility] [address] [id number], [place] [address] Jan, [facility] [address] [facility] [id number] [place] [address] Jan, [facility] [address] [id number], [place] [address] Nov, [facility] [address] [id number] [place] [address] Mar, [facility] [address] [facility] [id number], [place] [address] Mar, [facility] [address] [facility] [id number], [place] [address] Mar, [facility] [address] [facility] [id number], [place] [address] Mar, [facility] [address] [facility] [id number], [place] [address] Mar, [facility] [address] [facility] [id number], [place] [address] Mar, [facility] [address] [facility] [id number], [place] [address] Feb, [facility] [address] [facility] [id number], [place] [address] Feb, [facility] [address] [facility] [id number], [place] [address] Jan, [facility] [address] [facility] [id number], [place] [address] Jan, [facility] [address] [facility] [id number], [place] [address] Jan, IMMUNIZATIONS No Known Immunizations SOCIAL HISTORY [...] 2020 & 2007 Surgical History Bladder surgery [facility] 03/2016 Surgical History Neurotransmitter placed 10/2017 Surgical History retninal repair 12/31/2017 Surgical History cataract surgery 2018 Surgical History cataract surgery 2019 Surgical History SCS trial x7 days 2019 Hospitalization History Surgeries Only Hospitalization History bacterial meningitis December 2016 Hospitalization History [facility] psych for SI 1988 Hospitalization History [facility]-Altered mental status 05/2017 Hospitalization History sepsis, UTI, headache 08/03/2018-08/05/2018
--- OUTSIDE RECORDS SUMMARY | 2018-10-26 12:18 | XMS REPORT ---
Author Author KEIRA FORD [facility] Address [address] [place] [address] Care Team Providers Care Turf Manager Name Role Phone KEIRA FORD Unavailable PROBLEMS Type Condition ICD9-CM Code [id number] Code Onset Dates Condition Status SNOMED Code Problem Hypothyroid E03.9 Active 54221205 Problem Asthma J45.909 Active 041481187 Problem Insomnia G47.00 Active 677863417 Problem Depressed F32.9 Active 78695062 Problem Palpitations R00.2 Active 62539843 Problem Functional diarrhea K59.1 Active 42828224 Problem Chronic kidney disease, stage 4 (severe) N18.4 Active 497809372 Problem Degenerative tear of medial meniscus of left knee M23.204 Active 749131549 Problem Dysthymic disorder F34.1 Active 34236347 Problem Bipolar disorder, current episode manic without psychotic features F31.10 Active 793508724 Problem Generalized anxiety disorder F41.1 Active 35226419 Problem Restless leg G25.81 Active 85726928 Problem Coronary artery disease involving twenty-nine palms coronary artery of twenty-nine palms heart, angina presence unspecified I25.10 Active 9007040832857 Problem Hypokalemia E87.6 Active 44137014 Problem Other seasonal allergic rhinitis J30.2 Active 559965432 Problem Mixed stress and urge urinary incontinence N39.46 Active 360008215 Problem Fibromyalgia M79.7 Active 649927934 Problem Essential (primary) hypertension I10 Active 84095627 Problem Long-term use of high-risk medication Z79.899 Active 134368847 Problem Vitamin D deficiency E55.9 Active 67142872 Problem Anemia in chronic kidney disease D63.1 Active 870674274485856 Problem Low back pain M54.5 Active 372593104 Problem Chronic kidney disease, unspecified N18.9 Active 373097054 Problem Abnormal chest CT R93.8 Active 738454522 Problem Primary osteoarthritis of left knee M17.12 Active 963356943 Problem Mood disorder F39 Active 06353993 Problem Stage 3 chronic kidney disease N18.3 Active 190549434 Problem Perimenopausal vasomotor symptoms N95.1 Active 145003472 Problem Asthma with acute exacerbation in adult J45.901 Active 230218213 Problem Other chronic pain G89.29 Active 70724675 Problem History of colon polyps Z86.010 Active 379760220 Problem History of anemia Z86.2 Active 162681663 Problem Body mass index (BMI) of 40.0-44.9 in adult Z68.41 Active 864699390 Problem Seasonal allergic rhinitis due to pollen J30.1 Active 16038847 Problem Restless leg syndrome G25.81 Active 31252818 Problem Chronic pain syndrome G89.4 Active 058455544 ALLERGIES No Information ENCOUNTERS Encounter Location Date Diagnosis [facility] [id number] [place] [address] Nov, [facility] [address] [address] Oct, [facility] [address] [address] Oct, [facility] [address] [address] Sep, [facility] [id number] [place] [address] Sep, Generalized anxiety disorder F41.1 and Major depressive disorder, recurrent episode with anxious distress F33.9 [facility] [id number] [place] [address] 17 Sep, 2018 Chronic kidney disease, stage 4 (severe) N18.4 [facility] [id number] [place] [address] 2018 Fibromyalgia M79.7 and Chronic pain syndrome G89.4 [facility] [id number] [place] [address] Sep, [address] [address] Sep, Chronic pain syndrome G89.4 [facility] [id number] [place] [address] Sep, [facility] [id number] [place] [address] Sep, Chronic pain syndrome G89.4 ; Fibromyalgia M79.7 and Morbid obesity E66.01 [facility] [id number] [place] [address] August, Generalized anxiety disorder F41.1 and Major depressive disorder, recurrent episode with anxious distress F33.9 [facility] [id number] [place] [address] August, Fibromyalgia M79.7 [facility] [id number] [place] [address] August, Restless leg syndrome G25.81 ; Vitamin D deficiency E55.9 ; Urinary tract infection without hematuria, site unspecified N39.0 ; Pain in right shoulder M25.511 ; Other chronic pain G89.29 ; Biceps tendinitis on right M75.21 and Morbid obesity E66.01 [facility] [id number] [place] [address] Jul, Urinary tract infection without hematuria, site unspecified N39.0 and Morbid obesity E66.01 [facility] [id number] [place] [address] Jul, [facility] [id number] [place] [address] Jul, [facility] [id number] [place] [address] Jul, Fibromyalgia M79.7 [facility] [id number] [place] [address] Jul, Acute pain of right shoulder M25.511 [facility] [id number] [place] [address] Jul, Acute pain of right shoulder M25.511 and Morbid obesity E66.01 [facility] [id number] [place] [address] Jun, [facility] [id number] [place] [address] 14 Jun, 2018 Generalized anxiety disorder F41.1 and Major depressive disorder, recurrent episode with anxious distress F33.9 [facility] [id number] [place] [address] Jun, [facility] [id number] [place] [address] Jun, Fibromyalgia M79.7 [facility] [id number] [place] [address] Jun, Acute pain of right shoulder M25.511 ; Acute pain of right hip M25.551 and Morbid obesity E66.01 [facility] [id number] [place] [address] 11 May, 2018 Burning with urination R30.0 ; Vaginal discharge N89.8 ; Chronic kidney disease, stage 4 (severe) N18.4 ; Body mass index (BMI) of 40.0-44.9 in adult Z68.41 and Morbid obesity E66.01 [facility] [address] [place] [address] May, Fibromyalgia M79.7 [facility] [id number] [place] [address] May, Generalized anxiety disorder F41.1 and Major depressive disorder, recurrent episode with anxious distress F33.9 [facility] [id number] [place] [address] Apr, [facility] [id number] [place] [address] Apr, Fibromyalgia M79.7 [facility] [id number] [place] [address] 14 Mar, 2018 Acute UTI N39.0 and Dysuria R30.0 [facility] [id number] [place] [address] 10 Mar, 2018 Fibromyalgia M79.7 [facility] [id number] [place] [address] 15 Feb, 2018 [facility] [id number] [place] [address] Feb, [facility] [id number] [place] [address] Feb, [facility] [id number] [place] [address] Feb, Fibromyalgia M79.7 [facility] [id number] [place] [address] Feb, Complicated UTI (urinary tract infection) N39.0 [facility] [id number] [place] [address] Feb, [facility] [id number] [place] [address] Jan, Generalized anxiety disorder F41.1 and Major depressive disorder, recurrent episode with anxious distress F33.9 [facility] [id number] [place] [address] Jan, Acute conjunctivitis of left eye, unspecified acute conjunctivitis type H10.32 [facility] [id number] [place] [address] Jan, [facility] [id number] [place] [address] Jan, Acute non-recurrent maxillary sinusitis J01.00 ; Dysuria R30.0 ; Perimenopausal vasomotor symptoms N95.1 and Fibromyalgia M79.7 [facility] [id number] [place] [address] 28 Dec, 2017 Vitamin D deficiency E55.9 [facility] [address] [place] [address] 27 Dec, 2017 Vitamin D deficiency E55.9 [facility] [address] [place] [address] 24 Dec, 2017 Vitamin D deficiency E55.9 [facility] [id number] [place] [address] 12 Dec, 2017 [facility] [id number] [place] [address] Dec, Fibromyalgia M79.7 [facility] [id number] [place] [address] Nov, [facility] [id number] [place] [address] Nov, [facility] [id number] [place] [address] Nov, [facility] [id number] [place] [address] Nov, Fibromyalgia M79.7 ; Vision changes H53.9 ; Chest wall pain R07.89 and Chronic pain syndrome G89.4 [facility] [id number] [place] [address] Nov, [facility] [id number] [place] [address] Nov, Rash of hands R21 [facility] [id number] [place] [address] Nov, Generalized anxiety disorder F41.1 and Major depressive disorder, recurrent episode with anxious distress F33.9 [facility] [id number] [place] [address] Nov, Fibromyalgia M79.7 [facility] [id number] [place] [address] Nov, Complicated UTI (urinary tract infection) N39.0 [facility] [id number] [place] [address] Oct, [facility] [id number] [place] [address] Oct, Generalized anxiety disorder F41.1 and Major depressive disorder, recurrent episode with anxious distress F33.9 [facility] [id number] [place] [address] Oct, [facility] [id number] [place] [address] Oct, Fibromyalgia M79.7 [facility] [id number] [place] [address] Sep, Restless leg syndrome G25.81 and Restless leg G25.81 [facility] [id number] [place] [address] Sep, [facility] [id number] [place] [address] Sep, Seasonal allergic rhinitis due to pollen J30.1 ; Screening for breast cancer Z12.31 ; Chest pain at rest R07.9 ; Restless leg syndrome G25.81 ; Essential (primary) hypertension I10 and Depressed F32.9 [facility] [id number] [place] [address] August, Fibromyalgia M79.7 [facility] [id number] [place] [address] August, [facility] [id number] [place] [address] August, [facility] [id number] [place] [address] August, Abnormal chest [address] R93.8 [facility] [id number] [place] [address] August, Generalized anxiety disorder F41.1 and Major depressive disorder, recurrent episode with anxious distress F33.9 [facility] [id number] [place] [address] August, Abnormal chest [address] R93.8 [facility] [id number] [place] [address] Jul, [facility] [id number] [place] [address] Jul, Chronic kidney disease, stage 4 (severe) N18.4 [facility] [address] [address] Jul, [facility] [id number] [place] [address] Jul, Restless leg G25.81 ; Mixed stress and urge urinary incontinence N39.46 and Fibromyalgia M79.7 [facility] [id number] [place] [address] Jul, Chronic kidney disease, stage 4 (severe) N18.4 [facility] [id number] [place] [address] Jun, Orthostatic hypotension I95.1 ; Chronic kidney disease, stage 4 (severe) N18.4 ; Chest wall discomfort R07.89 and Body mass index (BMI) of 40.0-44.9 in adult Z68.41 [facility] [id number] [place] [address] Jun, [facility] [id number] [place] [address] Jun, Orthostatic hypotension I95.1 [facility] [id number] [place] [address] Jun, [facility] [id number] [place] [address] Jun, Orthostatic hypotension I95.1 ; Dysuria R30.0 and Acute cystitis without hematuria N30.00 [facility] [id number] [place] [address] Jun, [facility] [id number] [place] [address] Jun, Chronic kidney disease, stage 4 (severe) N18.4 [facility] [id number] [place] [address] Jun, Fibromyalgia M79.7 [facility] [id number] [place] [address] Jun, [facility] [id number] [place] [address] Jun, [facility] [id number] [place] [address] May, Abnormal chest [address] R93.8 and Stage 3 chronic kidney disease N18.3 [facility] [id number] [place] [address] May, Chronic kidney disease, stage 4 (severe) N18.4 [facility] [id number] [place] [address] May, Chronic kidney disease, stage 4 (severe) N18.4 [facility] [id number] [place] [address] May, Abnormal chest [address] R93.8 [facility] [address] [place] [address] May, [facility] [id number] [place] [address] May, [facility] [address] [place] [address] May, Generalized anxiety disorder F41.1 and Major depressive disorder, recurrent episode with anxious distress F33.9 [facility] [id number] [address] May, Mood disorder F39 [facility] [address] [place] [address] Apr, [facility] [address] [place] [address] Apr, Infected skin lesion L08.9 and Muscle strain of right shoulder region, initial encounter S46.911A [facility] [address] [place] [address] Apr, Generalized anxiety disorder F41.1 and Major depressive disorder, recurrent episode with anxious distress F33.9 [facility] [address] [address] Apr, [facility] [address] [place] [address] Apr, Recent urinary tract infection Z87.440 and Hypothyroid E03.9 [facility] [address] [place] [address] Apr, Generalized anxiety disorder F41.1 and Major depressive disorder, recurrent episode with anxious distress F33.9 [facility] [address] [address] Apr, Recent urinary tract infection Z87.440 [facility] [address] [place] [address] Mar, [facility] [address] [place] [address] Mar, Dysuria R30.0 ; Acute cystitis without hematuria N30.00 and BMI 40.0- 44.9, adult Z68.41 [facility] [address] [address] Mar, [facility] [address] [place] [address] Mar, [facility] [address] [place] [address] Mar, Generalized anxiety disorder F41.1 and Major depressive disorder, recurrent episode with anxious distress F33.9 [facility] [id number] [place] [address] Feb, Conjunctivitis, bacterial H10.9 [facility] [id number] [place] [address] Feb, [facility] [id number] [place] [address] Feb, Conjunctivitis, bacterial H10.9 [facility] [id number] [place] [address] Feb, [facility] [id number] [place] [address] Feb, Dysuria R30.0 ; Acute cystitis N30.00 and BMI 40.0-44.9, adult Z68.41 [facility] [id number] [place] [address] Feb, [facility] [id number] [place] [address] Feb, Generalized anxiety disorder F41.1 and Major depressive disorder, recurrent episode with anxious distress F33.9 [facility] [id number] [place] [address] Feb, Mood disorder F39 and BMI 40.0-44.9, adult Z68.41 [facility] [id number] [place] [address] Jan, [facility] [id number] [place] [address] Jan, [facility] [id number] [place] [address] Jan, Hypothyroid E03.9 [facility] [id number] [place] [address] Jan, [facility] [id number] [place] [address] Jan, Chronic kidney disease, unspecified N18.9 ; Hypokalemia E87.6 ; Essential (primary) hypertension I10 ; Fibromyalgia M79.7 ; Coronary artery disease involving twenty-nine palms coronary artery of twenty-nine palms heart, angina presence unspecified I25.10 ; Hypothyroid E03.9 and Encounter for immunization Z23 [place] [address] [address] Jan, Hypothyroid E03.9 [place] [address] [address] Jan, [place] [facility] [address] [address] Dec, Vitamin D deficiency E55.9 [facility] [address] [address] Dec, Primary osteoarthritis of left knee M17.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 [facility] [id number] [place] [address] 19 Dec, 2016 Fibromyalgia M79.7 [facility] [id number] [place] [address] 18 Dec, 2016 Mood disorder F39 [facility] [id number] [place] [address] Dec, [place] [address] [address] Dec, Generalized anxiety disorder F41.1 and Major depressive disorder, recurrent episode with anxious distress F33.9 [facility] [id number] [place] [address] 11 Dec, 2016 [place] [address] [facility] [id number] [address] 08 Dec, 2016 Streptococcal meningitis G00.2 [facility] [address] [address] Dec, Streptococcal meningitis G00.2 [facility] [address] [address] 07 Dec, 2016 [facility] [id number] [place] [address] Dec, Streptococcal meningitis G00.2 [facility] [address], [place] [address] Dec, [facility] [id number] [place] [address] Dec, Major depressive disorder, recurrent episode with anxious distress F33.9 [facility] [id number] [place] [address] Nov, Fever, unspecified fever cause R50.9 [facility] [address] [address] Nov, [facility] [id number] [place] [address] Nov, Hypothyroid E03.9 [facility] [id number] [place] [address] Nov, Generalized anxiety disorder F41.1 and Major depressive disorder, recurrent episode with anxious distress F33.9 [facility] [address], [place] [address] Nov, [facility] [address] [place] [id number] Oct, Dental examination Z01.20 [facility] [address], [place] [address] Oct, Generalized anxiety disorder F41.1 and Major depressive disorder, recurrent episode with anxious distress F33.9 [place] [address] [address] Oct, Chronic kidney disease, stage 4 (severe) N18.4 [place] [address] [address] Oct, [place] [id number] [place] [address] Oct, Fibromyalgia M79.7 [place] [id number] [address] Oct, [place] [address] [place] [id number] [place] [id number] Oct, Generalized anxiety disorder F41.1 ; Major depressive disorder, recurrent episode with anxious distress F33.9 and Bipolar disorder, current episode manic without psychotic features F31.10 [place] [id number] [address] Sep, [place] [id number] [place] [address] Sep, [place] [address] [place] [id number] [place] [address] Sep, Vitamin D deficiency E55.9 [place] [id number], [place] [address] Sep, Vitamin D deficiency E55.9 [place] [id number], [place] [address] Sep, [place] [id number] [address] Sep, Chronic kidney disease, stage 4 (severe) N18.4 ; Hypothyroid E03.9 ; Restless leg G25.81 ; Fibromyalgia M79.7 ; Essential (primary) hypertension I10 ; Vitamin D deficiency E55.9 ; Dyspepsia R10.13 ; Anemia in chronic kidney disease D63.1 ; Chronic kidney disease, unspecified N18.9 ; Coronary artery disease involving twenty-nine palms coronary artery of twenty-nine palms heart, angina presence unspecified I25.10 ; Screening breast examination Z12.39 and Low back pain M54.5 [place] [id number] [place] [address] August, Generalized anxiety disorder F41.1 and Major depressive disorder, recurrent episode with anxious distress F33.9 [place] [address] [place] [id number] [place] [address] August, Generalized anxiety disorder F41.1 and Major depressive disorder, recurrent episode with anxious distress F33.9 [facility] [id number] [place] [address] August, Fibromyalgia M79.7 [facility] [id number] [place] [address] Jul, Generalized anxiety disorder F41.1 and Major depressive disorder, recurrent episode with anxious distress F33.9 [facility] [id number] [place] [address] Jul, Fibromyalgia M79.7 [facility] [id number] [place] [address] Jul, Generalized anxiety disorder F41.1 [facility] [id number] [place] [address] May, [facility] [id number] [place] [address] May, Hypothyroid E03.9 [facility] [id number] [place] [address] May, Chronic kidney disease, stage 4 (severe) N18.4 ; Hypothyroid E03.9 ; Restless leg G25.81 ; Fibromyalgia M79.7 ; Essential (primary) hypertension I10 ; Vitamin D deficiency E55.9 ; Dyspepsia R10.13 ; Acute non-recurrent maxillary sinusitis J01.00 ; Anemia in chronic kidney disease D63.1 ; Chronic kidney disease, unspecified N18.9 and Coronary artery disease involving twenty-nine palms coronary artery of twenty-nine palms heart, angina presence unspecified I25.10 [facility] [id number] [place] [address] 02 May, 2016 Vitamin D deficiency, unspecified E55.9 [facility] [id number] [place] [address] May, Generalized anxiety disorder F41.1 and Major depressive disorder, recurrent episode with anxious distress F33.9 [facility] [id number] [place] [address] Apr, Pain in right knee M25.561 and Pain in left knee M25.562 [facility] [id number] [place] [address] Apr, [facility] [id number] [place] [address] Apr, [facility] [id number] [place] [address] Apr, [facility] [id number] [place] [address] Mar, Generalized anxiety disorder F41.1 and Major depressive disorder, recurrent episode with anxious distress F33.9 [facility] [id number] [place] [address] Mar, Generalized anxiety disorder F41.1 and Major depressive disorder, recurrent episode with anxious distress F33.9 [facility] [id number] [place] [address] Mar, [facility] [id number] [place] [address] Mar, [facility] [id number] [place] [address] Mar, [facility] [id number] [place] [address] Mar, Asthma J45.909 and Fibromyalgia M79.7 [facility] [id number] [place] [address] Mar, Chronic kidney disease, stage 4 (severe) N18.4 ; Vitamin D deficiency E55.9 and Essential (primary) hypertension I10 [facility] [address] [address] Feb, [facility] [address] [address] Feb, Dysuria R30.0 ; Mixed stress and urge urinary incontinence N39.46 ; Fibromyalgia M79.7 and Chronic kidney disease, stage IV (severe) N18.4 [facility] [address] [address] Feb, Chronic kidney disease, stage 4 (severe) N18.4 [facility] [address] [address] Feb, Chronic kidney disease, stage 4 (severe) N18.4 [facility] [address] [address] Feb, [facility] [id number] [place] [address] Feb, Vitamin D deficiency, unspecified E55.9 [facility] [id number] [place] [address] Jan, [facility] [id number] [place] [address] Jan, [facility] [address] [address] Dec, [facility] [id number] [place] [address] Dec, Chronic kidney disease, stage 4 (severe) N18.4 [facility] [address] [place] [address] Dec, Dysthymic disorder F34.1 and Generalized anxiety disorder F41.1 [facility] [id number] [place] [address] Dec, [facility] [id number] [place] [address] Dec, [facility] [address] [address] Dec, Dysthymic disorder F34.1 and Generalized anxiety disorder F41.1 [facility] [address] [address] Dec, Dysuria R30.0 ; Chronic kidney disease, stage 4 (severe) N18.4 ; Hypertension I10 ; Dyspepsia R10.13 ; Yeast dermatitis B37.2 ; Palpitations R00.2 ; Hypothyroid E03.9 ; Functional diarrhea K59.1 and Other seasonal allergic rhinitis J30.2 [facility] [id number] [place] [address] Dec, [facility] [address] [address] Nov, Dysuria R30.0 and Stress incontinence N39.3 [facility] [id number] [place] [address] Nov, [facility] [id number] [place] [address] Nov, [facility] [id number] [place] [address] Nov, Osteoarthritis of knees, bilateral M17.0 [facility] [id number] [place] [address] Nov, Dysthymic disorder F34.1 and Generalized anxiety disorder F41.1 [facility] [address] [address] Nov, [facility] [id number] [place] [address] Nov, [facility] [id number] [place] [address] Nov, Urgency of urination R39.15 [facility] [id number] [place] [address] Nov, [facility] [id number] [place] [address] Nov, Chronic kidney disease, stage 4 (severe) N18.4 [facility] [id number] [place] [address] Oct, Hypertension I10 ; Coronary artery disease involving twenty-nine palms coronary artery of twenty-nine palms heart, angina presence unspecified I25.10 ; Palpitations R00.2 ; Hypothyroid E03.9 ; Right foot pain M79.671 ; Functional diarrhea K59.1 and Other seasonal allergic rhinitis J30.2 [facility] [id number] [place] [address] Oct, Dysthymic disorder F34.1 and Generalized anxiety disorder F41.1 [facility] [id number] [place] [address] Sep, [facility] [id number] [place] [address] Sep, [facility] [id number] [place] [address] Sep, [facility] [id number] [place] [address] Sep, [facility] [id number] [place] [address] Sep, [facility] [id number] [place] [address] Sep, Dysthymic disorder F34.1 and Generalized anxiety disorder F41.1 [facility] [id number] [place] [address] 16 Sep, 2015 Asthma with acute exacerbation in adult J45.901 ; Dysuria R30.0 ; Chronic kidney disease, stage 4 (severe) N18.4 and History of anemia Z86.2 [facility] [id number] [place] [address] 2015 Generalized anxiety disorder F41.1 and Dysthymic disorder F34.1 [facility] [id number] [place] [address] August, Screening breast examination Z12.39 and Acute recurrent maxillary sinusitis J01.01 [facility] [id number] [place] [address] August, Osteoarthritis of knees, bilateral M17.[address] [address] August, Chronic kidney disease, stage 4 (severe) N18.4 ; Acute non-recurrent maxillary sinusitis J01.00 ; Urinary problem R39.89 ; Bowel habit changes R19.4 ; Functional diarrhea K59.1 and History of colon polyps Z86.010 [facility] [id number] [place] [address] 29 Jul, 2015 Dysthymic disorder F34.1 and Generalized anxiety disorder F41.1 [facility] [id number] [place] [address] Jul, [facility] [id number] [place] [address] 18 Jul, 2015 Dysthymic disorder F34.1 ; Generalized anxiety disorder F41.1 and 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 [facility] [id number] [place] [address] Jul, [facility] [address] [address] Jun, [facility] [id number] [place] [address] Jun, [facility] [id number] [place] [address] May, [facility] [id number] [place] [address] May, Dysthymic disorder F34.1 and Generalized anxiety disorder F41.1 [facility] [id number] [place] [address] Apr, Kidney disease N28.9 [facility] [id number] [place] [address] Apr, Generalized anxiety disorder F41.1 and Dysthymic disorder F34.1 [facility] [id number] [place] [address] Apr, Chronic kidney disease, stage 4 (severe) N18.4 [facility] [id number] [place] [address] Apr, Generalized anxiety disorder F41.1 ; Major depression, recurrent F33.9 and Sleep disturbance G47.9 [facility] [id number] [place] [address] Mar, Generalized anxiety disorder F41.1 and Dysthymic disorder F34.1 [facility] [id number] [place] [address] Mar, Generalized anxiety disorder F41.1 ; Dysthymic disorder F34.1 and Insomnia G47.00 [facility] [id number] [place] [address] Mar, [facility] [id number] [place] [address] Mar, [facility] [id number] [place] [address] Mar, Osteoarthritis of knees, bilateral M17.0 [facility] [id number] [place] [address] Mar, Hypertension I10 ; Hypothyroid E03.9 ; Dysthymic disorder F34.1 ; Chronic kidney disease, stage 4 (severe) N18.4 and Nausea & vomiting R11.2 [facility] [address] [address] Mar, Generalized anxiety disorder F41.1 ; Dysthymic disorder F34.1 and Insomnia G47.00 [facility] [address] [address] Mar, Dehydration E86.0 ; Chronic kidney disease, stage 4 (severe) N18.4 and Nausea & vomiting R11.2 [facility] [address] [address] Mar, Gastroenteritis K52.9 [facility] [address] [address] Mar, [facility] [address] [address] Mar, [facility] [address] [address] Feb, Dysthymic disorder F34.1 and Generalized anxiety disorder F41.1 [facility] [address] [address] Jan, UTI (urinary tract infection) N39.0 ; Asthma J45.909 ; Coronary artery disease involving twenty-nine palms coronary artery of twenty-nine palms heart, angina presence unspecified I25.10 ; Hypertension I10 ; Hypothyroid E03.9 ; Vitamin D deficiency E55.9 ; Insomnia G47.00 ; Palpitations R00.2 ; Depressed F32.9 ; Restless leg G25.81 and Anxiety F41.9 [facility] [address] [address] Jan, Dysthymic disorder F34.1 and Generalized anxiety disorder F41.1 [facility] [id number] [place] [address] Jan, [facility] [id number] [place] [address] Dec, [facility] [address] [address] 28 Dec, 2014 Alkalosis 276.3 ; Chronic kidney disease, Stage IV (severe) 585.4 ; Hyperpotassemia 276.7 ; Secondary hyperparathyroidism, renal 588.81 ; Proteinuria 791.0 ; Unspecified vitamin D deficiency 268.9 ; Anemia in chronic kidney disease 285.21 ; Other and unspecified hyperlipidemia 272.4 ; Hypertension, essential, benign 401.1 and Chronic kidney disease (CKD), stage III (moderate) 585.3 [facility] [address] [address] Dec, [facility] [id number] [place] [address] Dec, Depressive disorder, not elsewhere classified 311 and Generalized anxiety disorder 300.02 [facility] [id number] [place] [address] Dec, [facility] [id number] [place] [address] Dec, [facility] [id number] [place] [address] Nov, Depressive disorder, not elsewhere classified 311 and Generalized anxiety disorder 300.02 [facility] [id number] [place] [address] Nov, Arthritis of both knees 716.96 [facility] [id number] [place] [address] 07 Nov, 2014 PAF (paroxysmal atrial fibrillation) 427.31 ; CAD (coronary artery disease) 414.00 ; Chest pain 786.50 and Chronic kidney disease (CKD) stage G4/A1, severely decreased glomerular filtration rate (GFR) between 15-29 mL/min/1.73 square meter and albuminuria creatinine ratio less than 30 mg/g 585.4 [facility] [id number] [place] [address] Oct, Coronary atherosclerosis of unspecified type of vessel, twenty-nine palms or graft 414.00 ; Chronic kidney disease, Stage IV (severe) 585.4 ; Hypertension 401.9 and Edema 782.3 [place] [id number] [place] [address] Oct, Depressive disorder, not elsewhere classified 311 and Generalized anxiety disorder 300.[address] [address] Oct, Depressive disorder, not elsewhere classified 311 and Generalized anxiety disorder 300.[address] [address] Oct, [facility] [address] [address] Oct, [address] [address] Sep, [place] [id number] [place] [address] Sep, Chronic kidney disease, Stage IV (severe) 585.4 [facility] [address] [address] Sep, [place] [id number] [place] [address] Sep, Coronary atherosclerosis of unspecified type of vessel, twenty-nine palms or graft 414.00 ; Hypertension 401.9 ; Edema 782.3 and Hypothyroidism 244.[address] [address] Sep, Coronary atherosclerosis of unspecified type of vessel, twenty-nine palms or graft 414.00 ; Hypertension 401.9 ; Fibromyalgia 729.1 ; Edema 782.3 ; Hypothyroidism 244.9 and Anemia 285.9 [facility] [id number] [place] [address] Sep, Anxiety disorder, unspecified 300.00 and Depressive disorder, not elsewhere classified 311 [facility] [id number] [place] [address] Sep, [facility] [address] [address] August, Generalized anxiety disorder 300.02 [facility] [id number] [place] [address] August, Closed fracture of lateral malleolus 824.2 [facility] [id number] [place] [address] Jul, [facility] [id number] [place] [address] Jul, [facility] [id number] [place] [address] Jun, [facility] [id number] [place] [address] Jun, [facility] [id number] [place] [address] Jun, [facility] [id number] [place] [address] Jun, [facility] [id number] [place] [address] Jun, [facility] [id number] [place] [address] Jun, [facility] [id number] [place] [address] May, [facility] [id number] [place] [address] May, [facility] [place] [facility] [address] [id number] [place] [address] 18 May, 2014 [facility] [place] [facility] [address] [id number] [place] [address] 18 May, 2014 [facility] [place] [facility] [address] [id number] [place] [address] 16 May, 2014 [facility] [place] [facility] [address] [id number] [place] [address] 16 May, 2014 [facility] [place] [facility] [address] [id number] [place] [address] 13 May, 2014 [facility] [place] [facility] [address] [id number] [place] [address] 13 May, 2014 [facility] [place] [facility] [address] [id number] [place] [address] 10 May, 2014 [facility] [place] [facility] [address] [id number] [place] [address] 10 May, 2014 [facility] [place] [facility] [address] [id number] [place] [address] Apr, [facility] [place] [facility] [address] [id number] [place] [address] Apr, [facility] [place] [facility] [address] [id number] [place] [address] Mar, [facility] [place] [facility] [address] [id number] [place] [address] Mar, [facility] [place] [facility] [address] [id number] [place] [address] Mar, [facility] [place] [facility] [address] [id number] [place] [address] Mar, [facility] [place] [facility] [address] [id number] [place] [address] 15 Mar, 2014 [facility] [place] [facility] [address] [id number] [place] [address] 15 Mar, 2014 [facility] [place] [facility] [address] [id number] [place] [address] Mar, [facility] [place] [facility] [address] [id number] [place] [address] Feb, [facility] [place] [facility] [address] [id number] [place] [address] Feb, [facility] [place] [facility] [address] [id number] [place] [address] Feb, [facility] [place] [facility] [address] [id number] [place] [address] Jan, [facility] [place] [facility] [address] [id number] [place] [address] Jan, [facility] [place] [facility] [address] [id number] [place] [address] Jan, [facility] [place] [facility] [address] [id number] [place] [address] Jan, [facility] [place] [facility] [address] [id number] [place] [address] Jan, [facility] [place] [facility] [address] [id number] [place] [address] Jan, [facility] [place] [facility] [address] [id number] [place] [address] Jan, [facility] [place] [facility] [address] [id number] [place] [address] Jan, [facility] [place] [facility] [address] [id number] [place] [address] Jan, [facility] [place] [facility] [address] [id number] [place] [address] Jan, [facility] [place] [facility] [address] [id number] [place] [address] Nov, [facility] [place] [facility] [address] [id number] [place] [address] Nov, [facility] [place] [facility] [address] [id number] [place] [address] Nov, [facility] [place] [facility] [address] [id number] [place] [address] Oct, [facility] [place] [facility] [address] [id number] [place] [address] Oct, [facility] [place] [facility] [address] [id number] [place] [address] Oct, [facility] [place] [facility] [address] [id number] [place] [address] Oct, [facility] [place] [facility] [address] [id number] [place] [address] Oct, [facility] [place] [facility] [address] [id number] [place] [address] Oct, [facility] [place] [facility] [address] [id number] [place] [address] Oct, [facility] [place] [facility] [address] [id number] [place] [address] Oct, [facility] [place] [facility] [address] [id number] [place] [address] Oct, [facility] [place] [facility] [address] [id number] [place] [address] Sep, [facility] [place] [facility] [address] [id number] [place] [address] Sep, [facility] [place] [facility] [address] [id number] [place] [address] Sep, [facility] [place] [facility] [address] [id number] [place] [address] Sep, [facility] [place] [facility] [address] [id number] [place] [address] Sep, [facility] [place] [facility] [address] [id number] [place] [address] Sep, [facility] [place] [facility] [address] [id number] [place] [address] Sep, [facility] [place] [facility] [address] [id number] [place] [address] Sep, [facility] [place] [facility] [address] [id number] [place] [address] Sep, [facility] [place] [facility] [address] [id number] [place] [address] August, [facility] [place] [facility] [address] [id number] [place] [address] August, [facility] [place] [facility] [address] [id number] [place] [address] August, [facility] [place] [facility] [address] [id number] [place] [address] August, [facility] [place] [facility] [address] [id number] [place] [address] August, [facility] [place] [facility] [address] [id number] [place] [address] August, [facility] [place] [facility] [address] [id number] [place] [address] Jul, [facility] [place] [facility] [address] [id number] [place] [address] Jul, [facility] [place] [facility] [address] [id number] [place] [address] Jul, [facility] [place] [facility] [address] [id number] [place] [address] Jul, [facility] [place] [facility] [address] [id number] [place] [address] Jul, [facility] [place] [facility] [address] [id number] [place] [address] 07 Jul, 2013 [facility] [place] [facility] [address] [id number] [place] [address] Jun, [facility] [place] [facility] [address] [id number] [place] [address] Jun, [facility] [place] [facility] [address] [id number] [place] [address] May, [facility] [place] [facility] [address] [id number] [place] [address] May, [facility] [place] [facility] [address] [id number] [place] [address] May, [facility] [place] [facility] [address] [id number] [place] [address] May, [facility] [place] [facility] [address] [id number] [place] [address] Apr, [facility] [place] [facility] [address] [id number] [place] [address] Apr, [facility] [place] [facility] [address] [id number] [place] [address] Mar, [facility] [place] [facility] [address] [id number] [place] [address] 18 Mar, 2013 [facility] [place] [facility] [address] [id number] [place] [address] Mar, [facility] [place] [facility] [address] [id number] [place] [address] Mar, [facility] [place] [facility] [address] [id number] [place] [address] Mar, [facility] [place] [facility] [address] [id number] [place] [address] 05 Mar, 2013 [facility] [place] [facility] [address] [id number] [place] [address] Feb, [facility] [place] [facility] [address] [id number] [place] [address] Feb, [facility] [place] [facility] [address] [id number] [place] [address] Feb, [facility] [place] [facility] [address] [id number] [place] [address] Feb, [facility] [place] [facility] [address] [id number] [place] [address] Feb, [facility] [place] [facility] [address] [id number] [place] [address] Feb, [facility] [place] [facility] [address] [id number] [place] [address] Jan, [facility] [place] [facility] [address] [id number] [place] [address] Jan, [facility] [place] [facility] [address] [id number] [place] [address] Jan, [facility] [place] [facility] [address] [id number] [place] [address] Jan, [facility] [place] [facility] [address] [id number] [place] [address] Jan, [facility] [place] [facility] [address] [id number], [place] [address] Jan, [facility] [place] [facility] [address] [id number], [place] [address] Dec, [facility] [place] [facility] [address] [id number] [place] [address] Dec, [facility] [place] [facility] [address] [id number] [place] [address] Nov, [facility] [place] [facility] [address] [id number] [place] [address] Nov, [facility] [place] [facility] [address] [id number] [place] [address] Oct, [facility] [address] [id number] [place] [address] Oct, [facility] [address] [id number] [place] [address] Oct, [facility] [address] [id number] [place] [address] Oct, [facility] [address] [id number] [place] [address] Oct, [facility] [address] [id number] [place] [address] Oct, [facility] [address] [id number] [place] [address] Sep, [facility] [address] [id number] [place] [address] Sep, [facility] [address] [id number] [place] [address] Sep, [facility] [address] [id number] [place] [address] Sep, [facility] [address] [id number] [place] [address] August, [facility] [address] [id number] [place] [address] August, [facility] [address] [id number] [place] [address] August, [facility] [address] [id number] [place] [address] August, [facility] [address] [id number] [place] [address] August, [facility] [address] [id number] [place] [address] Jul, [facility] [address] [id number] [place] [address] Jul, [facility] [address] [id number] [place] [address] Jul, [facility] [address] [id number] [place] [address] Jul, [facility] [address] [id number] [place] [address] Jul, [facility] [address] [id number] [place] [address] Jul, [facility] [address] [id number] [place] [address] Jul, [facility] [address] [id number] [place] [address] Jul, [facility] [address] [id number] [place] [address] Jul, [facility] [address] [id number] [place] [address] Jul, [facility] [address] [id number] [id number] Jun, [facility] [address] [id number] [place] [address] Jun, [facility] [address] [id number], [place] [address] Jun, [facility] [address] [id number], [place] [address] Jun, [facility] [address] [id number] [place] [address] Jun, [facility] [address] [id number] [place] [address] May, [facility] [address] [id number], [place] [address] May, [facility] [address] [id number] [place] [address] May, [facility] [place] [facility] [address] [id number] [place] [address] Apr, [facility] [address] [facility] [id number] [place] [address] Apr, [facility] [place] [facility] [address] [id number] [place] [address] Apr, [facility] [address] [id number] [place] [address] Apr, [facility] [address] [id number] [place] [address] Apr, [facility] [address] [facility] [id number] [place] [address] Apr, [facility] [address] [id number] [place] [address] Mar, [facility] [address] [facility] [id number] [place] [address] Mar, [facility] [address] [facility] [id number] [place] [address] Mar, [facility] [address] [facility] [id number] [place] [address] Mar, [facility] [place] [facility] [address] [id number], [place] [address] Feb, [facility] [place] [facility] [address] [id number] [place] [address] Feb, [facility] [place] [facility] [address] [facility] [id number] [place] [address] Feb, [facility] [place] [facility] [address] [facility] [id number] [place] [address] Feb, [facility] [place] [facility] [address] [id number] [place] [address] Feb, [facility] [place] [facility] [address] [id number] [place] [address] Feb, [facility] [place] [facility] [address] [id number] [place] [address] Feb, [facility] [place] [facility] [address] [id number] [place] [address] Feb, [facility] [place] [facility] [address] [id number] [place] [address] Feb, [facility] [place] [facility] [address] [id number] [place] [address] Feb, [facility] [place] [facility] [address] [id number] [place] [address] Feb, [facility] [place] [facility] [address] [id number] [place] [address] Feb, [facility] [place] [facility] [address] [id number] [place] [address] Feb, [facility] [place] [facility] [address] [id number] [place] [address] Feb, [facility] [place] [facility] [address] [facility] [id number] [place] [address] Feb, [facility] [place] [facility] [address] [id number] [place] [address] Feb, [facility] [place] [facility] [address] [id number] [place] [address] Jan, [facility] [place] [facility] [address] [id number] [place] [address] Jan, [facility] [place] [facility] [address] [id number] [place] [address] Jan, [facility] [place] [facility] [address] [id number] [place] [address] 31 Jan, 2012 [facility] [place] [facility] [address] [id number] [place] [address] 30 Jan, 2012 [facility] [place] [facility] [address] [id number] [place] [address] Jan, [facility] [place] [facility] [address] [id number] [place] [address] Jan, [facility] [place] [facility] [address] [id number] [place] [address] 16 Jan, 2012 [facility] [place] [facility] [address] [id number] [place] [address] 16 Jan, 2012 [facility] [place] [facility] [address] [id number] [place] [address] 15 Jan, 2012 [facility] [place] [facility] [address] [id number] [place] [address] 15 Jan, 2012 [facility] [place] [facility] [address] [id number], [place] [address] Jan, [facility] [place] [facility] [address] [id number] [place] [address] 26 Sep2011 [facility] [place] [facility] [address] [id number], [place] [address] 26 Sep2011 [facility] [place] [facility] [address] [id number], [place] [address] 24 Sep2011 [facility] [place] [facility] [address] [id number], [place] [address] 23 Sep, 2011 [facility] [place] [facility] [address] [id number] [place] [address] 22 Sep2011 [facility] [place] [facility] [address] [id number], [place] [address] 21 Sep2011 [facility] [place] [facility] [address] [id number], [place] [address] 20 Sep, 2011 [facility] [place] [facility] [address] [id number] [place] [address] 20 Dec, 2011 [facility] [place] [facility] [address] [id number] [place] [address] 07 Dec, 2011 [facility] [place] [facility] [address] [id number] [place] [address] 06 Dec, 2011 [facility] [place] [facility] [address] [id number] [place] [address] 06 Dec, 2011 [facility] [place] [facility] [address] [id number] [place] [address] 05 Dec, 2011 [facility] [place] [facility] [address] [id number] [place] [address] 23 Nov, 2011 [facility] [place] [facility] [address] [id number] [place] [address] Nov, 2011 [facility] [place] [facility] [address] [id number] [place] [address] 13 Nov, 2011 [facility] [place] [facility] [address] [id number] [place] [address] Nov, [facility] [place] [facility] [address] [id number] [place] [address] Nov, [facility] [place] [facility] [address] [id number] [place] [address] Nov, [facility] [place] [facility] [address] [id number] [place] [address] Nov, [facility] [place] [facility] [address] [id number] [place] [address] Nov, [facility] [place] [facility] [address] [id number] [place] [address] Oct, [facility] [place] [facility] [address] [id number] [place] [address] Oct, [facility] [place] [facility] [address] [id number] [place] [address] Oct, [facility] [place] [facility] [address] [id number] [place] [address] Oct, [facility] [place] [facility] [address] [id number] [place] [address] Oct, [facility] [place] [facility] [address] [id number] [place] [address] Oct, [facility] [place] [facility] [address] [id number] [place] [address] Oct, [facility] [place] [facility] [address] [id number] [place] [address] Sep, [facility] [place] [facility] [address] [id number] [place] [address] Sep, [facility] [place] [facility] [address] [id number] [place] [address] August, [facility] [place] [facility] [address] [id number] [place] [address] August, [facility] [place] [facility] [address] [id number] [place] [address] August, [facility] [place] [facility] [address] [id number] [place] [address] August, [facility] [place] [facility] [address] [id number] [place] [address] Jul, [facility] [place] [facility] [address] [id number] [place] [address] Jul, [facility] [place] [facility] [address] [id number] [place] [address] Jul, [facility] [place] [facility] [address] [id number] [place] [address] Jul, [facility] [place] [facility] [address] [id number] [place] [address] Jul, [facility] [place] [facility] [address] [id number] [place] [address] Jul, [facility] [address] [id number] [place] [address] Jul, [facility] [place] [facility] [address] [id number] [place] [address] Jul, [facility] [place] [facility] [address] [facility] [id number] [place] [address] Jul, [facility] [place] [facility] [address] [id number] [place] [address] 23 Jun, 2011 [facility] [place] [facility] [address] [id number] [place] [address] 19 Jun, 2011 [facility] [place] [facility] [address] [facility] [id number] [place] [address] 15 Jun, 2011 [facility] [place] [facility] [address] [facility] [id number] [place] [address] 14 Jun, 2011 [facility] [place] [facility] [address] [id number] [place] [address] Jun, [facility] [place] [facility] [address] [id number] [place] [address] Jun, [facility] [place] [facility] [address] [facility] [id number] [place] [address] Jun, [facility] [place] [facility] [address] [id number] [place] [address] May, [facility] [place] [facility] [address] [id number] [place] [address] 24 May, 2011 [facility] [place] [facility] [address] [id number] [place] [address] May, [facility] [place] [facility] [address] [id number] [place] [address] 16 May, 2011 [facility] [place] [facility] [address] [facility] [id number] [place] [address] May, [facility] [place] [facility] [address] [id number] [place] [address] 27 Apr, 2011 [facility] [place] [facility] [address] [id number] [place] [address] 19 Apr, 2011 [facility] [place] [facility] [address] [id number] [place] [address] 13 Apr, 2011 [facility] [place] [facility] [address] [id number] [place] [address] Apr, [facility] [place] [facility] [address] [id number] [place] [address] 05 Apr, 2011 [facility] [place] [facility] [address] [id number] [place] [address] Mar, [facility] [place] [facility] [address] [id number] [place] [address] Mar, [facility] [place] [facility] [address] [id number] [place] [address] Mar, [facility] [place] [facility] [address] [id number] [place] [address] Mar, [facility] [place] [facility] [address] [id number] [place] [address] Mar, [facility] [place] [facility] [address] [id number] [place] [address] Mar, [facility] [place] [facility] [address] [id number] [place] [address] Mar, [facility] [place] [facility] [address] [id number] [place] [address] Feb, [facility] [place] [facility] [address] [id number] [place] [address] Feb, [facility] [place] [facility] [address] [id number] [place] [address] Feb, [facility] [place] [facility] [address] [id number] [place] [address] Feb, [facility] [place] [facility] [address] [id number] [place] [address] 31 Jan, 2011 [facility] [place] [facility] [address] [id number] [place] [address] Jan, [facility] [place] [facility] [address] [id number] [place] [address] Jan, [facility] [place] [facility] [address] [id number] [place] [address] Jan, [facility] [place] [facility] [address] [id number] [place] [address] Nov, [facility] [place] [facility] [address] [id number] [place] [address] Mar, [facility] [place] [facility] [address] [id number] [place] [address] Mar, [facility] [place] [facility] [address] [id number] [place] [address] Mar, [facility] [place] [facility] [address] [id number] [place] [address] Mar, [facility] [place] [facility] [address] [id number] [place] [address] Mar, [facility] [place] [facility] [address] [id number], [place] [address] Mar, [facility] [place] [facility] [address] [id number], [place] [address] Feb, [facility] [place] [facility] [address] [id number] [place] [address] Feb, [facility] [place] [facility] [address] [id number] [place] [address] Jan, [facility] [place] [facility] [address] [id number] [place] [address] 14 Jan, 2009 [facility] [place] [facility] [address] [facility] [id number] [place] [address] 14 Jan, 2009 IMMUNIZATIONS No Known Immunizations SOCIAL HISTORY Never Assessed REASON FOR VISIT PLAN OF CARE VITAL SIGNS MEDICATIONS Unknown Medications RESULTS No Results PROCEDURES Procedure Date Ordered Result Body Site PSYCH DIAGNOSTIC EVALUATION Jun 01, 2014 INSTRUCTIONS MEDICATIONS ADMINISTERED No Known Medications MEDICAL [...] 2020 & 2007 Surgical History Bladder surgery [facility] 03/2016 Surgical History 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
--- OUTSIDE RECORDS SUMMARY | 2018-10-26 12:19 | XMS REPORT ---
Author Author Migration, Doctor Organization [facility] Address Unknown Phone Unavailable Care Team Providers Care Police Reserves Commander Name Role Phone Migration, Doctor Unavailable Unavailable PROBLEMS Type Condition ICD9-CM Code MRJ24-SD Code Onset Dates Condition Status SNOMED Code Problem Insomnia G47.00 Active 233105972 Problem Restless leg G25.81 Active 41617736 Problem Depressed F32.9 Active 86735553 Problem Hypothyroid E03.9 Active 67457487 Problem Coronary artery disease involving [place] coronary artery of [place] heart, angina presence unspecified I25.10 Active 6985517321332 Problem Functional diarrhea K59.1 Active 74346795 Problem Chronic kidney disease, stage 4 (severe) N18.4 Active 670685909 Problem Primary osteoarthritis of left knee M17.12 Active 053807361 Problem Dysthymic disorder F34.1 Active 69389049 Problem Bipolar disorder, current episode manic without psychotic features F31.10 Active 781685695 Problem Generalized anxiety disorder F41.1 Active 90519685 Problem Asthma J45.909 Active 361847015 Problem Palpitations R00.2 Active 55625557 Problem Hypokalemia E87.6 Active 46348070 Problem Other seasonal allergic rhinitis J30.2 Active 486771910 Problem Fibromyalgia M79.7 Active 218536707 Problem Mixed stress and urge urinary incontinence N39.46 Active 252150762 Problem Vitamin D deficiency E55.9 Active 84511715 Problem Abnormal chest CT R93.8 Active 517286291 Problem Essential (primary) hypertension I10 Active 81955289 Problem Anemia in chronic kidney disease D63.1 Active 012299280591823 Problem Low back pain M54.5 Active 671780825 Problem Chronic kidney disease, unspecified N18.9 Active 670675789 Problem Long-term use of high-risk medication Z79.899 Active 566199415 Problem Degenerative tear of medial meniscus of left knee M23.204 Active 600655003 Problem Mood disorder F39 Active 38521400 Problem Stage 3 chronic kidney disease N18.3 Active 537320379 Problem Perimenopausal vasomotor symptoms N95.1 Active 596204748 Problem Asthma with acute exacerbation in adult J45.901 Active 063597529 Problem Other chronic pain G89.29 Active 22231027 Problem History of colon polyps Z86.010 Active 686657277 Problem History of anemia Z86.2 Active 823770237 Problem Body mass index (BMI) of 40.0-44.9 in adult Z68.41 Active 386228295 Problem Seasonal allergic rhinitis due to pollen J30.1 Active 02325890 Problem Restless leg syndrome G25.81 Active 35499689 Problem Chronic pain syndrome G89.4 Active 024004063 ALLERGIES No Information ENCOUNTERS Encounter Location Date Diagnosis [place] [address] [address] Oct, [place] [address] [address] Sep, [place] [address] [address] Sep, [place] [address] [address] August, Generalized anxiety disorder F41.1 and Major depressive disorder, recurrent episode with anxious distress F33.9 [place] [address] [place] [id number] [place] [address] August, Fibromyalgia M79.7 [place] [address] [place] [id number] [place] [address] August, Restless leg syndrome G25.81 ; Vitamin D deficiency E55.9 ; Urinary tract infection without hematuria, site unspecified N39.0 ; Pain in right shoulder M25.511 ; Other chronic pain G89.29 ; Biceps tendinitis on right M75.21 and Morbid obesity E66.01 [place] [address] [place] [id number] [place] [address] Jul, Urinary tract infection without hematuria, site unspecified N39.0 and Morbid obesity E66.01 [place] [address] [address] Jul, [facility] [address] [place] [id number] [place] [address] Jul, [facility] [address] [place] [id number] [place] [address] Jul, Fibromyalgia M79.7 [facility] [address] [place] [id number] [place] [address] Jul, Acute pain of right shoulder M25.511 [facility] [address] [place] [id number] [place] [address] Jul, Acute pain of right shoulder M25.511 and Morbid obesity E66.01 [place] [address] [place] [id number] [place] [address] Jun, [place] [address] [place] [id number] [place] [address] Jun, Generalized anxiety disorder F41.1 and Major depressive disorder, recurrent episode with anxious distress F33.9 [facility] [address] [place] [id number] [place] [address] Jun, [place] [address] [place] [id number] [place] [address] Jun, Fibromyalgia M79.7 [facility] [address] [place] [id number] [place] [address] Jun, Acute pain of right shoulder M25.511 ; Acute pain of right hip M25.551 and Morbid obesity E66.01 [facility] [address] [place] [id number] [place] [address] May, Burning with urination R30.0 ; Vaginal discharge N89.8 ; Chronic kidney disease, stage 4 (severe) N18.4 ; Body mass index (BMI) of 40.0-44.9 in adult Z68.41 and Morbid obesity E66.01 [place] [address] [place] [id number] [place] [address] May, Fibromyalgia M79.7 [facility] [id number] [place] [address] 06 May, 2018 Generalized anxiety disorder F41.1 and Major depressive disorder, recurrent episode with anxious distress F33.9 [facility] [id number] [place] [address] Apr, [facility] [address] [place] [id number] [place] [address] Apr, Fibromyalgia M79.7 [facility] [address] [place] [id number] [place] [address] Mar, Acute UTI N39.0 and Dysuria R30.0 [facility] [address] [place] [id number] [place] [address] Mar, Fibromyalgia M79.7 [facility] [address] [place] [id number] [place] [address] Feb, [facility] [address] [place] [id number] [place] [address] Feb, [facility] [address] [place] [id number] [place] [address] Feb, [facility] [address] [place] [id number] [place] [address] Feb, Fibromyalgia M79.7 [facility] [address] [place] [id number] [place] [address] Feb, Complicated UTI (urinary tract infection) N39.0 [facility] [address] [place] [id number] [place] [address] Feb, [facility] [address] [place] [id number] [place] [address] Jan, Generalized anxiety disorder F41.1 and Major depressive disorder, recurrent episode with anxious distress F33.9 [facility] [address] [place] [id number] [place] [address] Jan, Acute conjunctivitis of left eye, unspecified acute conjunctivitis type H10.32 [place] [address] [address] Jan, [facility] [address] [place] [id number] [place] [address] Jan, Acute non-recurrent maxillary sinusitis J01.00 ; Dysuria R30.0 ; Perimenopausal vasomotor symptoms N95.1 and Fibromyalgia M79.7 [place] [address] [place] [id number] [place] [address] Dec, Vitamin D deficiency E55.9 [place] [address] [address] Dec, Vitamin D deficiency E55.9 [place] [address] [address] Dec, Vitamin D deficiency E55.9 [place] [address] [place] [id number] [place] [address] Dec, [place] [address] [address] Dec, Fibromyalgia M79.7 [place] [address] [place] [id number] [place] [address] Nov, [place] [address] [place] [id number] [place] [address] Nov, [facility] [address] [place] [id number] [place] [address] Nov, [facility] [address] [address] Nov, Fibromyalgia M79.7 ; Vision changes H53.9 ; Chest wall pain R07.89 and Chronic pain syndrome G89.4 [place] [address] [place] [id number] [place] [address] Nov, [place] [id number] [place] [address] Nov, Rash of hands R21 [facility] [address] [place] [id number] [place] [address] Nov, Generalized anxiety disorder F41.1 and Major depressive disorder, recurrent episode with anxious distress F33.9 [place] [address] [place] [id number] [place] [address] Nov, Fibromyalgia M79.7 [place] [address] [place] [id number] [place] [address] Nov, Complicated UTI (urinary tract infection) N39.0 [place] [address] [place] [id number] [place] [address] Oct, [place] [address] [place] [id number] [place] [address] Oct, Generalized anxiety disorder F41.1 and Major depressive disorder, recurrent episode with anxious distress F33.9 [place] [address] [place] [id number] [place] [address] Oct, [place] [address] [place] [id number] [place] [address] Oct, Fibromyalgia M79.7 [facility] [address] [place] [id number] [place] [address] Sep, Restless leg syndrome G25.81 and Restless leg G25.81 [place] [address] [place] [id number] [place] [address] Sep, [place] [address] [place] [id number] [place] [address] Sep, Seasonal allergic rhinitis due to pollen J30.1 ; Screening for breast cancer Z12.31 ; Chest pain at rest R07.9 ; Restless leg syndrome G25.81 ; Essential (primary) hypertension I10 and Depressed F32.9 [place] [address] [place] [id number] [place] [address] August, Fibromyalgia M79.7 [facility] [address] [place] [id number] [place] [address] August, [facility] [address] [place] [id number] [place] [address] August, [facility] [address] [place] [id number] [place] [address] August, Abnormal chest [address] R93.8 [facility] [address] [place] [id number] [place] [address] August, Generalized anxiety disorder F41.1 and Major depressive disorder, recurrent episode with anxious distress F33.9 [place] [address] [place] [id number] [place] [address] August, Abnormal chest [address] R93.8 [facility] [address] [place] [id number] [place] [address] Jul, [facility] [address] [place] [id number] [place] [address] Jul, Chronic kidney disease, stage 4 (severe) N18.4 [facility] [address] [place] [id number] [place] [address] Jul, [facility] [address] [place] [id number] [place] [address] Jul, Restless leg G25.81 ; Mixed stress and urge urinary incontinence N39.46 and Fibromyalgia M79.7 [facility] [id number] [place] [address] Jul, Chronic kidney disease, stage 4 (severe) N18.4 [facility] [address] [place] [id number] [place] [address] Jun, Orthostatic hypotension I95.1 ; Chronic kidney disease, stage 4 (severe) N18.4 ; Chest wall discomfort R07.89 and Body mass index (BMI) of 40.0-44.9 in adult Z68.41 [facility] [address] [place] [id number] [place] [address] Jun, [facility] [address] [place] [id number] [place] [address] Jun, Orthostatic hypotension I95.1 [facility] [address] [place] [id number] [place] [address] Jun, [facility] [address] [place] [id number] [place] [address] Jun, Orthostatic hypotension I95.1 ; Dysuria R30.0 and Acute cystitis without hematuria N30.00 [facility] [address] [place] [id number] [place] [address] Jun, [facility] [address] [place] [id number] [place] [address] Jun, Chronic kidney disease, stage 4 (severe) N18.4 [place] [address] [place] [id number] [place] [address] Jun, Fibromyalgia M79.7 [facility] [address] [place] [id number] [place] [address] Jun, [facility] [address] [place] [id number] [place] [address] Jun, [facility] [address] [place] [id number] [place] [address] May, Abnormal chest [address] R93.8 and Stage 3 chronic kidney disease N18.3 [facility] [address] [place] [id number] [place] [address] May, Chronic kidney disease, stage 4 (severe) N18.4 [facility] [address] [place] [id number] [place] [address] May, Chronic kidney disease, stage 4 (severe) N18.4 [facility] [address] [address] May, Abnormal chest [address] R93.8 [facility] [address] [place] [id number] [place] [address] May, [facility] [id number] [place] [address] May, [facility] [address] [place] [id number] [place] [address] May, Generalized anxiety disorder F41.1 and Major depressive disorder, recurrent episode with anxious distress F33.9 [place] [address] [place] [id number] [place] [address] May, Mood disorder F39 [place] [id number] [place] [address] Apr, [facility] [address] [place] [id number] [place] [address] Apr, Infected skin lesion L08.9 and Muscle strain of right shoulder region, initial encounter S46.911A [place] [address] [place] [address] Apr, Generalized anxiety disorder F41.1 and Major depressive disorder, recurrent episode with anxious distress F33.9 [place] [address] [place] [address] Apr, [facility] [address] [place] [address] Apr, Recent urinary tract infection Z87.440 and Hypothyroid E03.9 [facility] [address] [place] [address] Apr, Generalized anxiety disorder F41.1 and Major depressive disorder, recurrent episode with anxious distress F33.9 [facility] [address] [address] Apr, Recent urinary tract infection Z87.440 [place] [address] [place] [address] 28 Mar, 2017 [facility] [address] [place] [id number] [place] [address] Mar, Dysuria R30.0 ; Acute cystitis without hematuria N30.00 and BMI 40.0- 44.9, adult Z68.41 [place] [address] [place] [id number] [place] [address] Mar, [place] [address] [place] [id number] [place] [address] Mar, [place] [address] [place] [id number] [place] [address] Mar, Generalized anxiety disorder F41.1 and Major depressive disorder, recurrent episode with anxious distress F33.9 [place] [address] [place] [id number] [place] [address] Feb, Conjunctivitis, bacterial H10.9 [place] [address] [place] [id number] [place] [address] Feb, [facility] [place] [address] [place] [id number] [place] [address] Feb, Conjunctivitis, bacterial H10.9 [place] [address] [place] [id number] [place] [address] Feb, [facility] [id number] [place] [address] Feb, Dysuria R30.0 ; Acute cystitis N30.00 and BMI 40.0-44.9, adult Z68.41 [place] [address] [place] [id number] [place] [address] 08 Feb, 2017 [place] [id number] [place] [address] Feb, Generalized anxiety disorder F41.1 and Major depressive disorder, recurrent episode with anxious distress F33.9 [facility] [id number] [place] [address] Feb, Mood disorder F39 and BMI 40.0-44.9, adult Z68.41 [place] [address] [place] [id number] [place] [address] Jan, [place] [address] [address] Jan, [place] [address] [place] [id number] [place] [address] Jan, Hypothyroid E03.9 [place] [address] [address] Jan, [place] [address] [place] [id number] [place] [address] Jan, Chronic kidney disease, unspecified N18.9 ; Hypokalemia E87.6 ; Essential (primary) hypertension I10 ; Fibromyalgia M79.7 ; Coronary artery disease involving [place] coronary artery of [place] heart, angina presence unspecified I25.10 ; Hypothyroid E03.9 and Encounter for immunization Z23 [place] [address] [place] [id number] [place] [address] Jan, Hypothyroid E03.9 [place] [address] [place] [id number] [place] [address] Jan, [place] [address] [place] [id number] [place] [address] Dec, Vitamin D deficiency E55.9 [place] [address] [place] [id number] [place] [address] Dec, Primary osteoarthritis of left knee M17.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 [place] [address] [place] [id number] [place] [address] Dec, Fibromyalgia M79.7 [place] [address] [place] [address] [address] 18 Sep, 2017 Mood disorder F39 [facility] [address] [place] [id number] [place] [address] 13 Dec, 2016 [facility] [address] [place] [id number] [place] [address] 13 Dec, 2016 Generalized anxiety disorder F41.1 and Major depressive disorder, recurrent episode with anxious distress F33.9 [facility] [id number] [place] [address] 11 Dec, 2016 [facility] [address] [place] [id number] [place] [address] 08 Dec, 2016 Streptococcal meningitis G00.2 [facility] [id number] [place] [address] 07 Dec, 2016 Streptococcal meningitis G00.2 [facility] [address] [place] [id number] [place] [address] 07 Dec, 2016 [facility] [id number] [place] [address] 06 Dec, 2016 Streptococcal meningitis G00.2 [facility] [id number] [place] [address] 06 Dec, 2016 [facility] [id number] [place] [address] 06 Dec, 2016 Major depressive disorder, recurrent episode with anxious distress F33.9 [facility] [address] [address] 29 Nov, 2016 Fever, unspecified fever cause R50.9 [facility] [address] [id number] [place] [address] 24 Nov, 2016 [facility] [id number] [place] [address] 16 Nov, 2016 Hypothyroid E03.9 [facility] [address] [id number] [place] [address] Nov, Generalized anxiety disorder F41.1 and Major depressive disorder, recurrent episode with anxious distress F33.9 [facility] [id number] [place] [address] Nov, [facility] [id number] [id number] Oct, Dental examination Z01.20 [facility] [address] [id number] [place] [address] Oct, Generalized anxiety disorder F41.1 and Major depressive disorder, recurrent episode with anxious distress F33.9 [place] [address] [place] [id number] [place] [address] Oct, Chronic kidney disease, stage 4 (severe) N18.4 [place] [address] [place] [id number] [place] [address] Oct, [facility] [address] [id number] [place] [address] Oct, Fibromyalgia M79.7 [facility] [address] [place] [id number] [place] [address] Oct, [facility] [address] [id number] [place] [address] Oct, Generalized anxiety disorder F41.1 ; Major depressive disorder, recurrent episode with anxious distress F33.9 and Bipolar disorder, current episode manic without psychotic features F31.10 [facility] [id number] [place] [id number] Sep, [facility] [id number] [place] [phone] Sep, [facility] [id number] [place] [phone] Sep, Vitamin D deficiency E55.9 [facility] [id number] [place] [phone] Sep, Vitamin D deficiency E55.9 [place] [id number] [place] [phone] Sep, [place] [id number] [place] [phone] Sep, Chronic kidney disease, stage 4 (severe) N18.4 ; Hypothyroid E03.9 ; Restless leg G25.81 ; Fibromyalgia M79.7 ; Essential (primary) hypertension I10 ; Vitamin D deficiency E55.9 ; Dyspepsia R10.13 ; Anemia in chronic kidney disease D63.1 ; Chronic kidney disease, unspecified N18.9 ; Coronary artery disease involving [place] coronary artery of [place] heart, angina presence unspecified I25.10 ; Screening breast examination Z12.39 and Low back pain M54.5 [place] [id number] [place] [phone] August, Generalized anxiety disorder F41.1 and Major depressive disorder, recurrent episode with anxious distress F33.9 [facility] [facility] [id number] [place] [address] August, Generalized anxiety disorder F41.1 and Major depressive disorder, recurrent episode with anxious distress F33.9 [facility] [facility] [id number] [place] [address] August, Fibromyalgia M79.7 [facility] [facility] [id number] [place] [address] Jul, Generalized anxiety disorder F41.1 and Major depressive disorder, recurrent episode with anxious distress F33.9 [facility] [id number] [place] [address] Jul, Fibromyalgia M79.7 [facility] [facility] [id number] [place] [address] Jul, Generalized anxiety disorder F41.1 [facility] [facility] [id number] [place] [address] May, [facility] [facility] [id number] [place] [address] 16 May, 2016 Hypothyroid E03.9 [facility] [facility] [id number] [place] [address] 08 May, 2016 Chronic kidney disease, stage 4 (severe) N18.4 ; Hypothyroid E03.9 ; Restless leg G25.81 ; Fibromyalgia M79.7 ; Essential (primary) hypertension I10 ; Vitamin D deficiency E55.9 ; Dyspepsia R10.13 ; Acute non-recurrent maxillary sinusitis J01.00 ; Anemia in chronic kidney disease D63.1 ; Chronic kidney disease, unspecified N18.9 and Coronary artery disease involving [place] coronary artery of [place] heart, angina presence unspecified I25.10 [facility] [id number] [place] [address] May, Vitamin D deficiency, unspecified E55.9 [facility] [facility] [id number] [place] [address] May, Generalized anxiety disorder F41.1 and Major depressive disorder, recurrent episode with anxious distress F33.9 [facility] [id number] [place] [address] Apr, Pain in right knee M25.561 and Pain in left knee M25.562 [facility] [facility] [id number] [place] [address] Apr, [facility] [facility] [id number] [place] [address] Apr, [facility] [facility] [id number] [place] [address] Apr, [facility] [id number] [place] [address] Mar, Generalized anxiety disorder F41.1 and Major depressive disorder, recurrent episode with anxious distress F33.9 [facility] [id number] [place] [address] Mar, Generalized anxiety disorder F41.1 and Major depressive disorder, recurrent episode with anxious distress F33.9 [facility] [id number] [place] [address] Mar, [facility] [id number] [place] [address] Mar, [facility] [id number] [place] [address] Mar, [facility] [facility] [id number] [place] [address] Mar, Asthma J45.909 and Fibromyalgia M79.7 [facility] [address] [address] Mar, Chronic kidney disease, stage 4 (severe) N18.4 ; Vitamin D deficiency E55.9 and Essential (primary) hypertension I10 [facility] [facility] [id number] [place] [address] Feb, [facility] [facility] [id number] [place] [address] Feb, Dysuria R30.0 ; Mixed stress and urge urinary incontinence N39.46 ; Fibromyalgia M79.7 and Chronic kidney disease, stage IV (severe) N18.4 [facility] [facility] [id number] [place] [address] Feb, Chronic kidney disease, stage 4 (severe) N18.4 [facility] [facility] [id number] [place] [address] Feb, Chronic kidney disease, stage 4 (severe) N18.4 [facility] [facility] [id number] [place] [address] Feb, [facility] [facility] [id number] [place] [address] Feb, Vitamin D deficiency, unspecified E55.9 [facility] [id number] [place] [address] Jan, [facility] [id number] [place] [address] Jan, [facility] [id number] [place] [address] Dec, [facility] [id number] [place] [address] Dec, Chronic kidney disease, stage 4 (severe) N18.4 [facility] [id number] [place] [address] Dec, Dysthymic disorder F34.1 and Generalized anxiety disorder F41.1 [facility] [id number] [place] [address] Dec, [facility] [id number] [place] [address] Dec, [facility] [id number] [place] [address] Dec, Dysthymic disorder F34.1 and Generalized anxiety disorder F41.1 [facility] [id number] [place] [address] Dec, Dysuria R30.0 ; Chronic kidney disease, stage 4 (severe) N18.4 ; Hypertension I10 ; Dyspepsia R10.13 ; Yeast dermatitis B37.2 ; Palpitations R00.2 ; Hypothyroid E03.9 ; Functional diarrhea K59.1 and Other seasonal allergic rhinitis J30.2 [facility] [id number] [place] [address] Dec, [facility] [id number] [place] [address] Nov, Dysuria R30.0 and Stress incontinence N39.3 [facility] [id number] [place] [address] Nov, [facility] [id number] [place] [address] Nov, [facility] [id number] [place] [address] Nov, Osteoarthritis of knees, bilateral M17.0 [facility] [facility] [id number] [place] [address] Nov, Dysthymic disorder F34.1 and Generalized anxiety disorder F41.1 [facility] [id number] [place] [address] Nov, [facility] [address] [address] Nov, [facility] [facility] [address] [address] Nov, Urgency of urination R39.15 [facility] [facility] [id number] [place] [address] Nov, [facility] [facility] [id number] [place] [address] Nov, Chronic kidney disease, stage 4 (severe) N18.4 [facility] [facility] [id number] [place] [address] Oct, Hypertension I10 ; Coronary artery disease involving [place] coronary artery of [place] heart, angina presence unspecified I25.10 ; Palpitations R00.2 ; Hypothyroid E03.9 ; Right foot pain M79.671 ; Functional diarrhea K59.1 and Other seasonal allergic rhinitis J30.2 [facility] [facility] [id number] [place] [address] Oct, Dysthymic disorder F34.1 and Generalized anxiety disorder F41.1 [facility] [facility] [id number] [place] [address] Sep, [facility] [facility] [address] [address] Sep, [facility] [facility] [address] [address] Sep, [facility] [id number] [place] [address] Sep, [facility] [id number] [place] [address] Sep, [facility] [facility] [id number] [place] [address] Sep, Dysthymic disorder F34.1 and Generalized anxiety disorder F41.1 [facility] [facility] [id number] [place] [address] 16 Sep, 2015 Asthma with acute exacerbation in adult J45.901 ; Dysuria R30.0 ; Chronic kidney disease, stage 4 (severe) N18.4 and History of anemia Z86.2 [facility] [facility] [id number] [place] [address] 2015 Generalized anxiety disorder F41.1 and Dysthymic disorder F34.1 [facility] [facility] [id number] [place] [address] August, Screening breast examination Z12.39 and Acute recurrent maxillary sinusitis J01.[address] [place] [address] August, Osteoarthritis of knees, bilateral M17.0 [address] [place] [address] August, Chronic kidney disease, stage 4 (severe) N18.4 ; Acute non-recurrent maxillary sinusitis J01.00 ; Urinary problem R39.89 ; Bowel habit changes R19.4 ; Functional diarrhea K59.1 and History of colon polyps Z86.010 [facility] [id number] [place] [address] Jul, Dysthymic disorder F34.1 and Generalized anxiety disorder F41.1 [facility] [id number] [place] [address] Jul, [facility] [id number] [place] [address] Jul, Dysthymic disorder F34.1 ; Generalized anxiety disorder F41.1 and long term use of drug Z79.899 [facility] [id number] [place] [address] Jul, [facility] [id number] [place] [address] Jun, [facility] [id number] [place] [address] Jun, [facility] [id number] [place] [address] May, [facility] [id number] [place] [address] May, Dysthymic disorder F34.1 and Generalized anxiety disorder F41.1 [facility] [id number] [place] [address] Apr, Kidney disease N28.9 [facility] [id number] [place] [address] Apr, Generalized anxiety disorder F41.1 and Dysthymic disorder F34.1 [facility] [id number] [place] [address] Apr, Chronic kidney disease, stage 4 (severe) N18.4 [facility] [id number] [place] [address] Apr, Generalized anxiety disorder F41.1 ; Major depression, recurrent F33.9 and Sleep disturbance G47.9 [facility] [id number] [place] [address] Mar, Generalized anxiety disorder F41.1 and Dysthymic disorder F34.1 [facility] [address] [place] [address] Mar, Generalized anxiety disorder F41.1 ; Dysthymic disorder F34.1 and Insomnia G47.00 [facility] [id number] [place] [address] Mar, [facility] [address] [address] Mar, [facility] [id number] [place] [address] Mar, Osteoarthritis of knees, bilateral M17.0 [facility] [address] [address] Mar, Hypertension I10 ; Hypothyroid E03.9 ; Dysthymic disorder F34.1 ; Chronic kidney disease, stage 4 (severe) N18.4 and Nausea & vomiting R11.2 [facility] [id number] [place] [address] Mar, Generalized anxiety disorder F41.1 ; Dysthymic disorder F34.1 and Insomnia G47.00 [place] [id number] [place] [address] Mar, Dehydration E86.0 ; Chronic kidney disease, stage 4 (severe) N18.4 and Nausea & vomiting R11.2 [facility] [address] [place] [address] Mar, Gastroenteritis K52.9 [facility] [id number] [place] [address] Mar, [facility] [id number] [place] [address] Mar, [facility] [id number] [place] [address] Feb, Dysthymic disorder F34.1 and Generalized anxiety disorder F41.1 [facility] [id number] [place] [address] Jan, UTI (urinary tract infection) N39.0 ; Asthma J45.909 ; Coronary artery disease involving [place] coronary artery of [place] heart, angina presence unspecified I25.10 ; Hypertension I10 ; Hypothyroid E03.9 ; Vitamin D deficiency E55.9 ; Insomnia G47.00 ; Palpitations R00.2 ; Depressed F32.9 ; Restless leg G25.81 and Anxiety F41.9 [facility] [id number] [place] [address] Jan, Dysthymic disorder F34.1 and Generalized anxiety disorder F41.1 [facility] [address] [address] Jan, [address] [address] Dec, [facility] [facility] [address] [address] 28 Dec, 2014 Alkalosis 276.3 ; Chronic kidney disease, Stage IV (severe) 585.4 ; Hyperpotassemia 276.7 ; Secondary hyperparathyroidism, renal 588.81 ; Proteinuria 791.0 ; Unspecified vitamin D deficiency 268.9 ; Anemia in chronic kidney disease 285.21 ; Other and unspecified hyperlipidemia 272.4 ; Hypertension, essential, benign 401.1 and Chronic kidney disease (CKD), stage III (moderate) 585.3 [facility] [facility] [id number] [place] [address] Dec, [id number] [place] [address] Dec, Depressive disorder, not elsewhere classified 311 and Generalized anxiety disorder 300.02 [facility] [id number] [place] [address] 10 Dec, 2014 [place] [address] [address] Dec, [facility] [id number] [place] [address] Nov, Depressive disorder, not elsewhere classified 311 and Generalized anxiety disorder 300.02 [facility] [id number] [place] [address] Nov, Arthritis of both knees 716.96 [place] [address] [address] Nov, PAF (paroxysmal atrial fibrillation) 427.31 ; CAD (coronary artery disease) 414.00 ; Chest pain 786.50 and Chronic kidney disease (CKD) stage G4/A1, severely decreased glomerular filtration rate (GFR) between 15-29 mL/min/1.73 square meter and albuminuria creatinine ratio less than 30 mg/g 585.4 [facility] [facility] [id number] [place] [address] Oct, Coronary atherosclerosis of unspecified type of vessel, [place] or graft 414.00 ; Chronic kidney disease, Stage IV (severe) 585.4 ; Hypertension 401.9 and Edema 782.3 [facility] [id number] [place] [address] Oct, Depressive disorder, not elsewhere classified 311 and Generalized anxiety disorder 300.02 [facility] [id number] [place] [address] Oct, Depressive disorder, not elsewhere classified 311 and Generalized anxiety disorder 300.02 [facility] [id number] [place] [address] Oct, [facility] [id number] [place] [address] Oct, [facility] [id number] [place] [address] Sep, [facility] [id number] [place] [address] Sep, Chronic kidney disease, Stage IV (severe) 585.4 [facility] [id number] [place] [address] Sep, [facility] [id number] [place] [address] Sep, Coronary atherosclerosis of unspecified type of vessel, [place] or graft 414.00 ; Hypertension 401.9 ; Edema 782.3 and Hypothyroidism 244.9 [facility] [address] [address] Sep, Coronary atherosclerosis of unspecified type of vessel, [place] or graft 414.00 ; Hypertension 401.9 ; Fibromyalgia 729.1 ; Edema 782.3 ; Hypothyroidism 244.9 and Anemia 285.9 [place] [id number] [place] [address] Sep, Anxiety disorder, unspecified 300.00 and Depressive disorder, not elsewhere classified 311 [facility] [id number] [place] [address] Sep, [facility] [id number] [place] [address] August, Generalized anxiety disorder 300.02 [facility] [id number] [place] [address] August, Closed fracture of lateral malleolus 824.2 [facility] [id number] [place] [address] Jul, [facility] [id number] [place] [address] Jul, [facility] [id number] [place] [address] Jun, [facility] [id number] [place] [address] Jun, [facility] [id number] [place] [address] Jun, [facility] [address] [place] [address] 13 Jun, 2014 [facility] [place] [facility] [address] [id number] [place] [address] Jun, [facility] [place] [facility] [address] [id number] [place] [address] Jun, [facility] [place] [facility] [address] [id number] [place] [address] May, 2014 [facility] [place] [facility] [address] [id number] [place] [address] May, 2014 [facility] [place] [facility] [address] [id number] [place] [address] May, 2014 [facility] [place] [facility] [address] [facility] [id number] [place] [address] 18 May, 2014 [facility] [place] [facility] [address] [facility] [id number] [place] [address] 16 May, 2014 [facility] [place] [facility] [address] [id number] [place] [address] 16 May, 2014 [facility] [place] [facility] [address] [facility] [id number] [place] [address] May, 2014 [facility] [place] [facility] [address] [facility] [id number] [place] [address] May, 2014 [facility] [place] [facility] [address] [facility] [id number] [place] [address] 10 May, 2014 [facility] [place] [facility] [address] [facility] [id number] [place] [address] May, [facility] [place] [facility] [address] [facility] [id number] [place] [address] Apr, [facility] [place] [facility] [address] [facility] [id number] [place] [address] Apr, [facility] [place] [facility] [address] [facility] [id number] [place] [address] Mar, [facility] [place] [facility] [address] [id number] [place] [address] Mar, [facility] [place] [facility] [address] [id number] [place] [address] Mar, [facility] [place] [facility] [address] [id number] [place] [address] Mar, [facility] [place] [facility] [address] [id number] [place] [address] Mar, [facility] [place] [facility] [address] [id number] [place] [address] Mar, [facility] [place] [facility] [address] [id number] [place] [address] Mar, [facility] [place] [facility] [address] [id number] [place] [address] Feb, [facility] [place] [facility] [address] [id number] [place] [address] Feb, [facility] [place] [facility] [address] [id number] [place] [address] Feb, [facility] [place] [facility] [address] [id number] [place] [address] Jan, [facility] [place] [facility] [address] [id number] [address] Jan, [facility] [place] [facility] [address] [id number] [address] Jan, [facility] [place] [facility] [address] [id number] [place] [address] Jan, [facility] [place] [facility] [address] [id number] [place] [address] Jan, [facility] [place] [facility] [address] [id number] [place] [address] Jan, [facility] [place] [facility] [address] [id number] [place] [address] Jan, [facility] [place] [facility] [address] [id number] [place] [address] Jan, [facility] [place] [facility] [address] [id number] [place] [address] Jan, [facility] [place] [facility] [address] [id number] [place] [address] Jan, [facility] [place] [facility] [address] [id number] [place] [address] Nov, [facility] [place] [facility] [address] [id number] [place] [address] Nov, [facility] [place] [facility] [address] [id number] [place] [address] Nov, [facility] [place] [facility] [address] [id number] [place] [address] Oct, [facility] [place] [facility] [address] [id number] [place] [address] Oct, [facility] [place] [facility] [address] [id number] [place] [address] Oct, [facility] [place] [facility] [address] [id number] [place] [address] Oct, [facility] [place] [facility] [address] [id number] [place] [address] Oct, [facility] [place] [facility] [address] [id number] [place] [address] Oct, [facility] [place] [facility] [address] [id number] [place] [address] Oct, [facility] [place] [facility] [address] [id number] [place] [address] Oct, [facility] [place] [facility] [address] [id number] [place] [address] Oct, [facility] [place] [facility] [address] [id number] [place] [address] Sep, [facility] [place] [facility] [address] [id number] [place] [address] Sep, [facility] [place] [facility] [address] [id number] [place] [address] Sep, [facility] [place] [facility] [address] [id number] [place] [address] Sep, [facility] [place] [facility] [address] [id number] [place] [address] Sep, [facility] [place] [facility] [address] [id number] [place] [address] Sep, [facility] [place] [facility] [address] [id number] [place] [address] Sep, [facility] [place] [facility] [address] [id number] [place] [address] Sep, [facility] [place] [facility] [address] [id number] [place] [address] Sep, [facility] [place] [facility] [address] [id number] [place] [address] August, [facility] [place] [facility] [address] [id number] [place] [address] August, [facility] [place] [facility] [address] [id number] [address] August, [facility] [place] [facility] [address] [id number] [place] [address] August, [facility] [place] [facility] [address] [id number] [place] [address] August, [facility] [place] [facility] [address] [id number] [place] [address] August, [facility] [place] [facility] [address] [id number] [place] [address] Jul, [facility] [address] [id number] [place] [address] Jul, [facility] [place] [facility] [address] [id number] [place] [address] Jul, [facility] [place] [facility] [address] [id number] [address] Jul, [facility] [place] [facility] [address] [id number] [place] [address] Jul, [facility] [place] [facility] [address] [id number] [place] [address] Jul, [facility] [place] [facility] [address] [id number] [place] [address] Jun, [facility] [place] [facility] [address] [facility] [id number] [place] [address] Jun, [facility] [place] [facility] [address] [id number] [place] [address] May, [facility] [place] [facility] [address] [facility] [id number] [place] [address] May, [facility] [place] [facility] [address] [facility] [id number] [place] [address] May, [facility] [place] [facility] [address] [facility] [id number] [place] [address] May, [facility] [place] [facility] [address] [id number] [place] [address] Apr, [facility] [place] [facility] [address] [id number] [place] [address] Apr, [facility] [place] [facility] [address] [id number] [place] [address] Mar, [facility] [place] [facility] [address] [id number] [place] [address] Mar, [facility] [place] [facility] [address] [id number] [place] [address] Mar, [facility] [place] [facility] [address] [id number] [place] [address] Mar, [facility] [place] [facility] [address] [id number] [place] [address] Mar, [facility] [place] [facility] [address] [id number] [place] [address] Mar, [facility] [place] [facility] [address] [id number] [place] [address] Feb, [facility] [place] [facility] [address] [id number] [place] [address] Feb, [facility] [place] [facility] [address] [id number] [place] [address] Feb, [facility] [place] [facility] [address] [id number] [place] [address] Feb, [facility] [place] [facility] [address] [id number] [place] [address] Feb, [facility] [place] [facility] [address] [id number] [place] [address] Feb, [facility] [place] [facility] [address] [id number] [place] [address] Jan, [facility] [place] [facility] [address] [id number] [place] [address] Jan, [facility] [place] [facility] [address] [id number] [place] [address] Jan, [facility] [place] [facility] [address] [id number] [place] [address] Jan, [facility] [place] [facility] [address] [id number] [place] [address] 08 Jan, 2013 [facility] [place] [facility] [address] [id number] [place] [address] Jan, [facility] [place] [facility] [address] [id number] [place] [address] Dec, [facility] [place] [facility] [address] [id number] [place] [address] Dec, [facility] [place] [facility] [address] [id number] [place] [address] Nov, [facility] [place] [facility] [address] [id number] [place] [address] Nov, [facility] [place] [facility] [address] [id number] [place] [address] Oct, [facility] [place] [facility] [address] [id number] [place] [address] Oct, [facility] [place] [facility] [address] [id number] [place] [address] Oct, [facility] [place] [facility] [address] [id number] [place] [address] Oct, [facility] [place] [facility] [address] [id number] [place] [address] Oct, [facility] [place] [facility] [address] [id number] [place] [address] Oct, [facility] [place] [facility] [address] [id number] [place] [address] Sep, [facility] [place] [facility] [address] [id number] [place] [address] Sep, [facility] [place] [facility] [address] [id number] [place] [address] Sep, [facility] [place] [facility] [address] [id number] [place] [address] Sep, [facility] [place] [facility] [address] [id number] [place] [address] August, [facility] [place] [facility] [address] [id number] [place] [address] August, [facility] [address] [id number] [place] [address] August, [facility] [address] [id number] [place] [address] August, [facility] [address] [id number] [place] [address] August, [facility] [address] [id number] [place] [address] Jul, [facility] [address] [id number] [place] [address] Jul, [facility] [address] [id number] [place] [address] Jul, [facility] [address] [id number] [place] [address] Jul, [facility] [address] [id number] [place] [address] Jul, [facility] [address] [id number] [place] [address] Jul, [facility] [address] [id number] [place] [address] Jul, [facility] [address] [id number] [place] [address] Jul, [facility] [address] [id number] [place] [address] Jul, [facility] [address] [id number] [place] [address] Jul, [facility] [address] [id number] [id number] Jun, [facility] [address] [id number] [address] Jun, [facility] [place] [facility] [address] [id number] [place] [address] Jun, [facility] [address] [id number] [place] [address] Jun, [facility] [place] [facility] [address] [id number] [place] [address] Jun, [facility] [place] [facility] [address] [id number] [place] [address] May, [facility] [place] [facility] [address] [id number] [place] [address] May, [facility] [place] [facility] [address] [id number] [place] [address] May, [facility] [address] [id number] [place] [address] Apr, [facility] [address] [id number] [place] [address] Apr, [facility] [address] [id number] [place] [address] Apr, [facility] [address] [id number] [place] [address] Apr, [facility] [address] [id number] [place] [address] Apr, [facility] [address] [id number] [place] [address] Apr, [facility] [place] [facility] [address] [id number] [place] [address] Mar, [facility] [place] [facility] [address] [id number] [place] [address] Mar, [facility] [place] [facility] [address] [id number] [place] [address] Mar, [facility] [place] [facility] [address] [id number], [place] [address] Mar, [facility] [place] [facility] [address] [id number] [place] [address] Feb, [facility] [place] [facility] [address] [id number] [place] [address] Feb, [facility] [place] [facility] [address] [id number] [place] [address] Feb, [facility] [place] [facility] [address] [id number] [place] [address] Feb, [facility] [place] [facility] [address] [id number] [place] [address] Feb, [facility] [place] [facility] [address] [id number] [place] [address] Feb, [facility] [place] [facility] [address] [id number] [place] [address] Feb, [facility] [place] [facility] [address] [id number] [place] [address] Feb, [facility] [place] [facility] [address] [id number] [address] Feb, [facility] [place] [facility] [address] [id number] [place] [address] Feb, [facility] [place] [facility] [address] [id number], [place] [address] Feb, [facility] [place] [facility] [address] [id number], [place] [address] Feb, [facility] [place] [facility] [address] [id number], [place] [address] Feb, [facility] [place] [facility] [address] [id number][place] [address] Feb, [facility] [place] [facility] [address] [id number], [place] [address] Feb, [facility] [place] [facility] [address] [id number] [place] [address] Feb, [facility] [place] [facility] [address] [id number] [place] [address] 31 Jan, 2011 [facility] [place] [facility] [address] [id number] [place] [address] Jan, 2011 [facility] [place] [facility] [address] [id number] [place] [address] Jan, 2011 [facility] [place] [facility] [address] [id number] [place] [address] Jan, [facility] [place] [facility] [address] [id number] [place] [address] 30 Jan, 2012 [facility] [place] [facility] [address] [id number] [place] [address] Jan, [facility] [place] [facility] [address] [id number] [place] [address] Jan, [facility] [place] [facility] [address] [id number] [place] [address] Jan, [facility] [place] [facility] [address] [id number] [place] [address] 16 Jan, 2012 [facility] [place] [facility] [address] [id number] [place] [address] 15 Jan, 2012 [facility] [place] [facility] [address] [id number] [place] [address] 15 Jan, 2012 [facility] [place] [facility] [address] [id number] [place] [address] Jan, [facility] [place] [facility] [address] [id number] [place] [address] Dec, [facility] [place] [facility] [address] [id number] [place] [address] Dec, [facility] [place] [facility] [address] [id number] [place] [address] 24 Sep, 2011 [facility] [place] [facility] [address] [id number] [place] [address] 23 Sep, 2011 [facility] [place] [facility] [address] [id number] [place] [address] 22 Sep, 2011 [facility] [place] [facility] [address] [id number] [place] [address] 21 Sep, 2011 [facility] [place] [facility] [address] [id number] [place] [address] 20 Sep, 2011 [facility] [place] [facility] [address] [id number] [place] [address] 20 Sep, 2011 [facility] [place] [facility] [address] [id number] [place] [address] 07 Sep, 2011 [facility] [place] [facility] [address] [id number] [place] [address] 06 Sep, 2011 [facility] [place] [facility] [address] [id number] [place] [address] 06 Sep, 2011 [facility] [place] [facility] [address] [id number] [place] [address] 05 Sep, 2011 [facility] [place] [facility] [address] [id number] [place] [address] 23 Nov, 2011 [facility] [place] [facility] [address] [id number] [place] [address] 17 Nov, 2011 [facility] [place] [facility] [address] [id number] [place] [address] 13 Nov, 2011 [facility] [place] [facility] [address] [id number] [place] [address] 10 Nov, 2011 [facility] [place] [facility] [address] [id number] [place] [address] 08 Nov, 2011 [facility] [place] [facility] [address] [id number] [place] [address] 07 Nov, 2011 [facility] [place] [facility] [address] [id number] [place] [address] Nov, [facility] [address] [id number] [place] [address] Nov, [facility] [place] [facility] [address] [id number] [place] [address] Oct, [facility] [place] [facility] [address] [id number] [place] [address] Oct, [facility] [place] [facility] [address] [id number] [place] [address] Oct, [facility] [place] [facility] [address] [id number] [place] [address] Oct, [facility] [place] [facility] [address] [id number] [place] [address] Oct, [facility] [address] [id number] [place] [address] Oct, [facility] [place] [facility] [address] [id number] [place] [address] Oct, [facility] [place] [facility] [address] [id number] [place] [address] Sep, [facility] [place] [facility] [address] [id number] [place] [address] Sep, [facility] [place] [facility] [address] [id number] [place] [address] August, [facility] [place] [facility] [address] [id number] [place] [address] August, [facility] [place] [facility] [address] [id number] [place] [address] August, [facility] [place] [facility] [address] [id number] [place] [address] August, [facility] [place] [facility] [address] [id number] [place] [address] Jul, [facility] [place] [facility] [address] [id number] [place] [address] 06 Jul, 2011 [facility] [place] [facility] [address] [id number] [place] [address] Jul, [facility] [place] [facility] [address] [id number] [place] [address] Jul, [facility] [place] [facility] [address] [id number] [place] [address] Jul, [facility] [place] [facility] [address] [id number] [place] [address] Jul, [facility] [place] [facility] [address] [id number] [place] [address] Jul, [facility] [place] [facility] [address] [id number] [place] [address] Jul, [facility] [place] [facility] [address] [id number] [place] [address] Jul, [facility] [place] [facility] [address] [id number] [place] [address] 23 Jun, 2011 [facility] [place] [facility] [address] [id number] [place] [address] 19 Jun, 2011 [facility] [place] [facility] [address] [id number] [place] [address] 15 Jun, 2011 [facility] [place] [facility] [address] [id number] [place] [address] 14 Jun, 2011 [facility] [place] [facility] [address] [id number] [place] [address] 12 Jun, 2011 [facility] [place] [facility] [address] [id number] [place] [address] Jun, [facility] [place] [facility] [address] [id number] [place] [address] 09 Jun, 2011 [facility] [place] [facility] [address] [id number] [place] [address] May, [facility] [address] [id number] [place] [address] May, [facility] [address] [id number] [place] [address] May, [facility] [address] [id number] [place] [address] May, [facility] [place] [facility] [address] [id number] [place] [address] May, [facility] [address] [id number] [place] [address] Apr, [facility] [address] [id number] [place] [address] Apr, [facility] [address] [id number] [place] [address] Apr, [facility] [address] [id number] [place] [address] Apr, [facility] [address] [id number] [place] [address] Apr, [facility] [address] [facility] [id number] [place] [address] Mar, [facility] [address] [id number] [place] [address] Mar, [facility] [place] [facility] [address] [id number] [place] [address] Mar, [facility] [place] [facility] [address] [id number] [place] [address] Mar, [facility] [place] [facility] [address] [id number] [place] [address] Mar, [facility] [place] [facility] [address] [facility] [id number] [place] [address] Mar, [facility] [place] [facility] [address] [id number] [place] [address] Mar, [facility] [place] [facility] [address] [id number] [place] [address] Feb, [facility] [place] [facility] [address] [id number] [place] [address] Feb, [facility] [place] [facility] [address] [id number] [place] [address] Feb, [facility] [place] [facility] [address] [id number] [place] [address] Feb, [facility] [place] [facility] [address] [id number] [place] [address] Jan, [facility] [place] [facility] [address] [id number] [place] [address] Jan, [facility] [place] [facility] [address] [id number] [place] [address] Jan, [facility] [place] [facility] [address] [id number] [place] [address] Jan, [facility] [place] [facility] [address] [id number] [place] [address] Nov, [facility] [place] [facility] [address] [id number] [place] [address] Mar, [facility] [place] [facility] [address] [id number] [place] [address] Mar, [facility] [place] [facility] [address] [id number] [place] [address] Mar, [facility] [place] [facility] [address] [id number] [place] [address] Mar, [facility] [place] [facility] [address] [id number] [place] [address] Mar, [facility] [place] [facility] [address] [id number] [place] [address] Mar, [facility] [address] [facility] [id number] [place] [address] Feb, [facility] [address] [facility] [id number] [address] Feb, [facility] [address] [facility] [id number], [place] [address] Jan, [facility] [address] [facility] [id number], [place] [address] Jan, [facility] [address] [facility] [id number], [place] [address] Jan, IMMUNIZATIONS No Known Immunizations SOCIAL HISTORY Never Assessed REASON FOR VISIT 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
--- OUTSIDE RECORDS SUMMARY | 2018-10-26 12:21 | XMS REPORT ---
Author Author Migration, Doctor Organization [facility] Address Unknown Phone Unavailable Care Team Providers Care Software Tools Engineer Name Role Phone Migration, Doctor Unavailable Unavailable PROBLEMS Type Condition ICD9-CM Code [id number] Code Onset Dates Condition Status SNOMED Code Problem Restless leg G25.81 Active 15780696 Problem Insomnia G47.00 Active 504150149 Problem Hypothyroid E03.9 Active 27413531 Problem Palpitations R00.2 Active 04657562 Problem Asthma J45.909 Active 206299971 Problem Chronic kidney disease, stage 4 (severe) N18.4 Active 940591506 Problem Depressed F32.9 Active 21609658 Problem Bipolar disorder, current episode manic without psychotic features F31.10 Active 678362235 Problem Generalized anxiety disorder F41.1 Active 38107371 Problem Anemia in chronic kidney disease D63.1 Active 754632140258653 Problem Low back pain M54.5 Active 698605678 Problem Coronary artery disease involving [place] coronary artery of [place] heart, angina presence unspecified I25.10 Active 0119539913239 Problem Dysthymic disorder F34.1 Active 37029125 Problem Other seasonal allergic rhinitis J30.2 Active 530663205 Problem History of anemia Z86.2 Active 900018382 Problem Fibromyalgia M79.7 Active 931165934 Problem Hypokalemia E87.6 Active 03070125 Problem Vitamin D deficiency E55.9 Active 32534960 Problem Mixed stress and urge urinary incontinence N39.46 Active 076516370 Problem Chronic kidney disease, unspecified N18.9 Active 299826722 Problem Abnormal chest CT R93.8 Active 584994080 Problem Essential (primary) hypertension I10 Active 46987277 Problem Long-term use of high-risk medication Z79.899 Active 821351653 Problem Degenerative tear of medial meniscus of left knee M23.204 Active 650740020 Problem Primary osteoarthritis of left knee M17.12 Active 623975928 Problem Mood disorder F39 Active 67442957 Problem Chronic pain syndrome G89.4 Active 272481401 Problem History of colon polyps Z86.010 Active 731588991 Problem Perimenopausal vasomotor symptoms N95.1 Active 396556050 Problem Functional diarrhea K59.1 Active 11836452 Problem Asthma with acute exacerbation in adult J45.901 Active 136745916 Problem Stage 3 chronic kidney disease N18.3 Active 033084598 Problem Body mass index (BMI) of 40.0-44.9 in adult Z68.41 Active 532109280 Problem Seasonal allergic rhinitis due to pollen J30.1 Active 47863084 Problem Restless leg syndrome G25.81 Active 38904757 ALLERGIES No Information ENCOUNTERS Encounter Location Date Diagnosis [facility] [id number] [address] Sep, [facility] [id number] [place] [address] August, [facility] [id number] [place] [address] August, [facility] [id number] [place] [address] August, [facility] [id number] [place] [address] Jul, Urinary tract infection without hematuria, site unspecified N39.0 [facility] [id number] [place] [address] Jul, [facility] [id number] [place] [address] Jul, [facility] [id number] [place] [address] Jul, Fibromyalgia M79.7 [facility] [id number] [place] [address] Jul, Acute pain of right shoulder M25.511 [facility] [id number] [place] [address] Jul, Acute pain of right shoulder M25.511 and Morbid obesity E66.01 [facility] [id number] [place] [address] Jun, [facility] [id number] [place] [address] Jun, Generalized anxiety disorder F41.1 and Major depressive disorder, recurrent episode with anxious distress F33.9 [facility] [id number] [place] [address] Jun, [facility] [address] [address] Jun, Fibromyalgia M79.7 [facility] [address] [address] Jun, Acute pain of right shoulder M25.511 ; Acute pain of right hip M25.551 and Morbid obesity E66.01 [facility] [address] [address] 11 May, 2018 Burning with urination R30.0 ; Vaginal discharge N89.8 ; Chronic kidney disease, stage 4 (severe) N18.4 ; Body mass index (BMI) of 40.0-44.9 in adult Z68.41 and Morbid obesity E66.01 [facility] [id number] [place] [address] 07 May, 2018 Fibromyalgia M79.7 [facility] [id number] [place] [address] May, Generalized anxiety disorder F41.1 and Major depressive disorder, recurrent episode with anxious distress F33.9 [facility] [id number] [place] [address] Apr, [facility] [id number] [place] [address] Apr, Fibromyalgia M79.7 [facility] [id number] [place] [address] Mar, Acute UTI N39.0 and Dysuria R30.0 [facility] [id number] [place] [address] Mar, Fibromyalgia M79.7 [facility] [id number] [place] [address] 15 Feb, 2018 [facility] [id number] [place] [address] Feb, [facility] [id number] [place] [address] Feb, [facility] [id number] [place] [address] Feb, Fibromyalgia M79.7 [facility] [id number] [place] [address] 08 Feb, 2018 Complicated UTI (urinary tract infection) N39.0 [facility] [id number] [place] [address] Feb, [facility] [id number] [place] [address] Jan, Generalized anxiety disorder F41.1 and Major depressive disorder, recurrent episode with anxious distress F33.9 [facility] [id number] [place] [address] Jan, Acute conjunctivitis of left eye, unspecified acute conjunctivitis type H10.32 [facility] [address] [place] [address] Jan, [facility] [address] [place] [address] Jan, Acute non-recurrent maxillary sinusitis J01.00 ; Dysuria R30.0 ; Perimenopausal vasomotor symptoms N95.1 and Fibromyalgia M79.7 [facility] [id number] [place] [address] Dec, Vitamin D deficiency E55.9 [facility] [id number] [place] [address] Dec, Vitamin D deficiency E55.9 [facility] [address] [address] 24 Dec, 2017 Vitamin D deficiency E55.9 [facility] [id number] [place] [address] Dec, [facility] [address] [address] Dec, Fibromyalgia M79.7 [facility] [address] [address] Nov, [facility] [address] [address] Nov, [facility] [address] [address] Nov, [facility] [address] [address] Nov, Fibromyalgia M79.7 ; Vision changes H53.9 ; Chest wall pain R07.89 and Chronic pain syndrome G89.4 [facility] [id number] [place] [address] Nov, [facility] [id number] [place] [address] Nov, Rash of hands R21 [facility] [address] [address] Nov, Generalized anxiety disorder F41.1 and Major depressive disorder, recurrent episode with anxious distress F33.9 [facility] [address] [address] Nov, Fibromyalgia M79.7 [facility] [id number] [place] [address] Nov, Complicated UTI (urinary tract infection) N39.0 [facility] [id number] [place] [address] Oct, [facility] [id number] [place] [address] Oct, Generalized anxiety disorder F41.1 and Major depressive disorder, recurrent episode with anxious distress F33.9 [facility] [id number] [place] [address] Oct, [facility] [id number] [place] [address] Oct, Fibromyalgia M79.7 [facility] [address] [address] Sep, Restless leg syndrome G25.81 and Restless leg G25.81 [facility] [id number] [place] [address] Sep, [facility] [id number] [place] [address] Sep, Seasonal allergic rhinitis due to pollen J30.1 ; Screening for breast cancer Z12.31 ; Chest pain at rest R07.9 ; Restless leg syndrome G25.81 ; Essential (primary) hypertension I10 and Depressed F32.9 [facility] [id number] [place] [address] August, Fibromyalgia M79.7 [facility] [id number] [place] [address] August, [facility] [id number] [place] [address] August, [facility] [address] [address] August, Abnormal chest [address] R93.8 [facility] [id number] [place] [address] August, Generalized anxiety disorder F41.1 and Major depressive disorder, recurrent episode with anxious distress F33.9 [facility] [id number] [place] [address] August, Abnormal chest [address] R93.8 [facility] [id number] [place] [address] Jul, [facility] [id number] [place] [address] Jul, Chronic kidney disease, stage 4 (severe) N18.4 [facility] [id number] [place] [address] Jul, [facility] [address] [address] Jul, Restless leg G25.81 ; Mixed stress and urge urinary incontinence N39.46 and Fibromyalgia M79.7 [facility] [id number] [place] [address] Jul, Chronic kidney disease, stage 4 (severe) N18.4 [facility] [id number] [place] [address] Jun, Orthostatic hypotension I95.1 ; Chronic kidney disease, stage 4 (severe) N18.4 ; Chest wall discomfort R07.89 and Body mass index (BMI) of 40.0-44.9 in adult Z68.41 [facility] [id number] [place] [address] Jun, [facility] [id number] [place] [address] Jun, Orthostatic hypotension I95.1 [facility] [id number] [place] [address] Jun, [facility] [id number] [place] [address] Jun, Orthostatic hypotension I95.1 ; Dysuria R30.0 and Acute cystitis without hematuria N30.00 [facility] [address] [address] Jun, [facility] [id number] [place] [address] Jun, Chronic kidney disease, stage 4 (severe) N18.4 [facility] [id number] [place] [address] Jun, Fibromyalgia M79.7 [facility] [id number] [place] [address] Jun, [facility] [id number] [place] [address] Jun, [facility] [id number] [place] [address] May, Abnormal chest [address] R93.8 and Stage 3 chronic kidney disease N18.3 [facility] [id number] [place] [address] May, Chronic kidney disease, stage 4 (severe) N18.4 [facility] [id number] [place] [address] May, Chronic kidney disease, stage 4 (severe) N18.4 [facility] [id number] [place] [address] May, Abnormal chest [address] R93.8 [facility] [id number] [place] [address] May, [facility] [id number] [place] [address] May, [facility] [id number] [place] [address] May, Generalized anxiety disorder F41.1 and Major depressive disorder, recurrent episode with anxious distress F33.9 [facility] [id number] [place] [address] May, Mood disorder F39 [facility] [address] [place] [address] Apr, [facility] [address] [place] [address] Apr, Infected skin lesion L08.9 and Muscle strain of right shoulder region, initial encounter S46.911A [facility] [id number] [place] [address] Apr, Generalized anxiety disorder F41.1 and Major depressive disorder, recurrent episode with anxious distress F33.9 [facility] [id number] [place] [address] Apr, [facility] [address] [place] [address] Apr, Recent urinary tract infection Z87.440 and Hypothyroid E03.9 [facility] [address] [place] [address] Apr, Generalized anxiety disorder F41.1 and Major depressive disorder, recurrent episode with anxious distress F33.9 [facility] [id number] [place] [address] Apr, Recent urinary tract infection Z87.440 [facility] [address] [place] [address] Mar, [facility] [id number] [place] [address] Mar, Dysuria R30.0 ; Acute cystitis without hematuria N30.00 and BMI 40.0- 44.9, adult Z68.41 [facility] [address] [place] [address] Mar, [facility] [id number] [place] [address] Mar, [facility] [id number] [place] [address] Mar, Generalized anxiety disorder F41.1 and Major depressive disorder, recurrent episode with anxious distress F33.9 [facility] [id number] [place] [address] Feb, Conjunctivitis, bacterial H10.9 [facility] [address] [address] Feb, [facility] [address] [address] Feb, Conjunctivitis, bacterial H10.9 [facility] [address] [address] Feb, [facility] [id number] [place] [address] Feb, Dysuria R30.0 ; Acute cystitis N30.00 and BMI 40.0-44.9, adult Z68.41 [facility] [id number] [place] [address] Feb, [facility] [address] [address] Feb, Generalized anxiety disorder F41.1 and Major depressive disorder, recurrent episode with anxious distress F33.9 [facility] [id number] [place] [address] Feb, Mood disorder F39 and BMI 40.0-44.9, adult Z68.41 [facility] [id number] [place] [address] Jan, [facility] [address] [address] Jan, [facility] [address] [address] Jan, Hypothyroid E03.9 [facility] [address] [address] Jan, [facility] [id number] [place] [address] Jan, Chronic kidney disease, unspecified N18.9 ; Hypokalemia E87.6 ; Essential (primary) hypertension I10 ; Fibromyalgia M79.7 ; Coronary artery disease involving [place] coronary artery of [place] heart, angina presence unspecified I25.10 ; Hypothyroid E03.9 and Encounter for immunization Z23 [facility] [id number] [place] [address] Jan, Hypothyroid E03.9 [facility] [address] [address] Jan, [facility] [id number] [place] [address] Dec, Vitamin D deficiency E55.9 [facility] [id number] [place] [address] 28 Dec, 2016 Primary osteoarthritis of left knee M17.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 [facility] [id number] [place] [address] 19 Dec, 2016 Fibromyalgia M79.7 [facility] [id number] [place] [address] 18 Dec, 2016 Mood disorder F39 [facility] [id number] [place] [address] 13 Dec, 2016 [facility] [id number] [place] [address] 13 Dec, 2016 Generalized anxiety disorder F41.1 and Major depressive disorder, recurrent episode with anxious distress F33.9 [facility] [id number] [place] [address] 11 Dec, 2016 [facility] [id number] [place] [address] 08 Dec, 2016 Streptococcal meningitis G00.2 [facility] [address] [facility] [id number] [address] 07 Dec, 2016 Streptococcal meningitis G00.2 [facility] [address] [facility] [id number] [address] 07 Dec, 2016 [facility] [address], [place] [address] Dec, Streptococcal meningitis G00.2 [facility] [address] [address] Dec, [facility] [address] [place] [address] Dec, Major depressive disorder, recurrent episode with anxious distress F33.9 [facility] [address] [address] Nov, Fever, unspecified fever cause R50.9 [facility] [address] [address] Nov, [facility] [address] [place] [address] Nov, Hypothyroid E03.9 [facility] [address], [place] [address] Nov, Generalized anxiety disorder F41.1 and Major depressive disorder, recurrent episode with anxious distress F33.9 [facility] [address] [address] Nov, [facility] [id number] [id number] Oct, Dental examination Z01.20 [facility] [address] [address] Oct, Generalized anxiety disorder F41.1 and Major depressive disorder, recurrent episode with anxious distress F33.9 [facility] [address] [place] [address] Oct, Chronic kidney disease, stage 4 (severe) N18.4 [facility] [place] [id number] [place] [address] Oct, [facility] [id number] [place] [address] Oct, Fibromyalgia M79.7 [facility] [id number] [place] [address] Oct, [facility] [id number] [place] [address] Oct, Generalized anxiety disorder F41.1 ; Major depressive disorder, recurrent episode with anxious distress F33.9 and Bipolar disorder, current episode manic without psychotic features F31.10 [facility] [id number] [place] [address] Sep, [facility] [id number] [place] [address] Sep, [facility] [id number] [place] [address] Sep, Vitamin D deficiency E55.9 [facility] [address] [place] [address] Sep, Vitamin D deficiency E55.9 [facility] [id number] [place] [address] Sep, [facility] [address] [place] [address] Sep, Chronic kidney disease, stage 4 (severe) N18.4 ; Hypothyroid E03.9 ; Restless leg G25.81 ; Fibromyalgia M79.7 ; Essential (primary) hypertension I10 ; Vitamin D deficiency E55.9 ; Dyspepsia R10.13 ; Anemia in chronic kidney disease D63.1 ; Chronic kidney disease, unspecified N18.9 ; Coronary artery disease involving [place] coronary artery of [place] heart, angina presence unspecified I25.10 ; Screening breast examination Z12.39 and Low back pain M54.5 [facility] [id number] [place] [address] August, Generalized anxiety disorder F41.1 and Major depressive disorder, recurrent episode with anxious distress F33.9 [facility] [id number] [place] [phone] August, Generalized anxiety disorder F41.1 and Major depressive disorder, recurrent episode with anxious distress F33.9 [facility] [id number] [place] [phone] August, Fibromyalgia M79.7 [facility] [address] [phone] Jul, Generalized anxiety disorder F41.1 and Major depressive disorder, recurrent episode with anxious distress F33.9 [facility] [id number] [place] [id number] Jul, Fibromyalgia M79.7 [facility] [id number] [place] [phone] Jul, Generalized anxiety disorder F41.1 [facility] [id number] [place] [phone] May, [facility] [id number] [place] [phone] May, Hypothyroid E03.9 [facility] [id number] [place] [phone] May, Chronic kidney disease, stage 4 (severe) N18.4 ; Hypothyroid E03.9 ; Restless leg G25.81 ; Fibromyalgia M79.7 ; Essential (primary) hypertension I10 ; Vitamin D deficiency E55.9 ; Dyspepsia R10.13 ; Acute non-recurrent maxillary sinusitis J01.00 ; Anemia in chronic kidney disease D63.1 ; Chronic kidney disease, unspecified N18.9 and Coronary artery disease involving [place] coronary artery of [place] heart, angina presence unspecified I25.10 [facility] [id number] [address] May, Vitamin D deficiency, unspecified E55.9 [facility] [facility] [id number] [place] [address] May, Generalized anxiety disorder F41.1 and Major depressive disorder, recurrent episode with anxious distress F33.9 [facility] [id number] [place] [address] Apr, Pain in right knee M25.561 and Pain in left knee M25.562 [facility] [id number] [place] [address] Apr, [facility] [id number] [place] [address] Apr, [facility] [id number] [place] [address] Apr, [facility] [id number] [place] [address] Mar, Generalized anxiety disorder F41.1 and Major depressive disorder, recurrent episode with anxious distress F33.9 [facility] [id number] [place] [address] Mar, Generalized anxiety disorder F41.1 and Major depressive disorder, recurrent episode with anxious distress F33.9 [facility] [id number] [place] [address] Mar, [facility] [id number] [place] [address] Mar, [facility] [id number] [place] [address] Mar, [facility] [id number] [place] [address] Mar, Asthma J45.909 and Fibromyalgia M79.7 [facility] [id number] [place] [address] Mar, Chronic kidney disease, stage 4 (severe) N18.4 ; Vitamin D deficiency E55.9 and Essential (primary) hypertension I10 [facility] [id number] [place] [address] Feb, [facility] [id number] [place] [address] Feb, Dysuria R30.0 ; Mixed stress and urge urinary incontinence N39.46 ; Fibromyalgia M79.7 and Chronic kidney disease, stage IV (severe) N18.4 [facility] [address] [address] Feb, Chronic kidney disease, stage 4 (severe) N18.4 [facility] [id number] [place] [address] Feb, Chronic kidney disease, stage 4 (severe) N18.4 [facility] [id number] [place] [address] Feb, [facility] [id number] [place] [address] Feb, Vitamin D deficiency, unspecified E55.9 [facility] [id number] [place] [address] Jan, [facility] [id number] [place] [address] Jan, [facility] [id number] [place] [address] Dec, [facility] [id number] [place] [address] Dec, Chronic kidney disease, stage 4 (severe) N18.4 [facility] [id number] [place] [address] Dec, Dysthymic disorder F34.1 and Generalized anxiety disorder F41.1 [facility] [id number] [place] [address] Dec, [facility] [address] [address] Dec, [facility] [facility] [address] [address] Dec, Dysthymic disorder F34.1 and Generalized anxiety disorder F41.1 [place] [address] [address] Dec, Dysuria R30.0 ; Chronic kidney disease, stage 4 (severe) N18.4 ; Hypertension I10 ; Dyspepsia R10.13 ; Yeast dermatitis B37.2 ; Palpitations R00.2 ; Hypothyroid E03.9 ; Functional diarrhea K59.1 and Other seasonal allergic rhinitis J30.2 [facility] [address] [address] Dec, [facility] [address] [address] Nov, Dysuria R30.0 and Stress incontinence N39.3 [place] [address] [address] Nov, [facility] [facility] [id number] [place] [address] Nov, [place] [address] [address] Nov, Osteoarthritis of knees, bilateral M17.0 [facility] [address] [address] Nov, Dysthymic disorder F34.1 and Generalized anxiety disorder F41.1 [facility] [id number] [place] [address] Nov, [place] [address] [address] Nov, [facility] [id number] [place] [address] Nov, Urgency of urination R39.15 [facility] [id number] [place] [address] Nov, [facility] [facility] [id number] [place] [address] Nov, Chronic kidney disease, stage 4 (severe) N18.4 [facility] [id number] [place] [address] Oct, Hypertension I10 ; Coronary artery disease involving rapp[place] coronary artery of [place] heart, angina presence unspecified I25.10 ; Palpitations R00.2 ; Hypothyroid E03.9 ; Right foot pain M79.671 ; Functional diarrhea K59.1 and Other seasonal allergic rhinitis J30.2 [facility] [id number] [place] [address] Oct, Dysthymic disorder F34.1 and Generalized anxiety disorder F41.1 [facility] [place] [id number] [place] [address] Sep, [facility] [id number] [place] [address] Sep, [facility] [id number] [place] [address] Sep, [facility] [id number] [place] [address] Sep, [facility] [place] [id number] [place] [address] Sep, [facility] [id number] [place] [address] Sep, Dysthymic disorder F34.1 and Generalized anxiety disorder F41.1 [facility] [id number] [place] [address] 16 Sep, 2015 Asthma with acute exacerbation in adult J45.901 ; Dysuria R30.0 ; Chronic kidney disease, stage 4 (severe) N18.4 and History of anemia Z86.2 [facility] [id number] [place] [address] 2015 Generalized anxiety disorder F41.1 and Dysthymic disorder F34.1 [place] [address] [address] August, Screening breast examination Z12.39 and Acute recurrent maxillary sinusitis J01.01 [place] [address] [address] August, Osteoarthritis of knees, bilateral M17.0 [place] [id number] [place] [address] August, Chronic kidney disease, stage 4 (severe) N18.4 ; Acute non-recurrent maxillary sinusitis J01.00 ; Urinary problem R39.89 ; Bowel habit changes R19.4 ; Functional diarrhea K59.1 and History of colon polyps Z86.010 [facility] [id number] [place] [address] Jul, Dysthymic disorder F34.1 and Generalized anxiety disorder F41.1 [facility] [id number] [place] [address] Jul, [facility] [facility] [address] [address] Jul, Dysthymic disorder F34.1 ; Generalized anxiety disorder F41.1 and snf use of drug Z79.899 [facility] [id number] [place] [address] Jul, [facility] [id number] [place] [address] Jun, [place] [address] [address] Jun, [facility] [id number] [place] [address] May, [facility] [id number] [place] [address] May, Dysthymic disorder F34.1 and Generalized anxiety disorder F41.1 [facility] [id number] [place] [address] Apr, Kidney disease N28.9 [place] [id number] [place] [address] Apr, Generalized anxiety disorder F41.1 and Dysthymic disorder F34.1 [facility] [place] [id number] [place] [address] Apr, Chronic kidney disease, stage 4 (severe) N18.4 [facility] [id number] [place] [address] Apr, Generalized anxiety disorder F41.1 ; Major depression, recurrent F33.9 and Sleep disturbance G47.9 [place] [id number] [place] [address] Mar, Generalized anxiety disorder F41.1 and Dysthymic disorder F34.1 [place] [id number] [place] [address] Mar, Generalized anxiety disorder F41.1 ; Dysthymic disorder F34.1 and Insomnia G47.00 [place] [id number] [place] [address] Mar, [place] [id number] [place] [address] Mar, [place] [id number] [place] [address] Mar, Osteoarthritis of knees, bilateral M17.0 [place] [id number] [place] [address] Mar, Hypertension I10 ; Hypothyroid E03.9 ; Dysthymic disorder F34.1 ; Chronic kidney disease, stage 4 (severe) N18.4 and Nausea & vomiting R11.2 [place] [id number] [place] [address] Mar, Generalized anxiety disorder F41.1 ; Dysthymic disorder F34.1 and Insomnia G47.[address] [address] Mar, Dehydration E86.0 ; Chronic kidney disease, stage 4 (severe) N18.4 and Nausea & vomiting R11.2 [facility] [id number] [place] [address] 08 Mar, 2015 Gastroenteritis K52.[address] [address] Mar, [address] [address] Mar, [address] [address] Feb, Dysthymic disorder F34.1 and Generalized anxiety disorder F41.1 [place] [id number] [place] [address] Jan, UTI (urinary tract infection) N39.0 ; Asthma J45.909 ; Coronary artery disease involving [place] coronary artery of rapp[place] heart, angina presence unspecified I25.10 ; Hypertension I10 ; Hypothyroid E03.9 ; Vitamin D deficiency E55.9 ; Insomnia G47.00 ; Palpitations R00.2 ; Depressed F32.9 ; Restless leg G25.81 and Anxiety F41.9 [place] [id number] [place] [address] Jan, Dysthymic disorder F34.1 and Generalized anxiety disorder F41.[id number] [place] [address] Jan, [place] [id number] [place] [address] Dec, [place] [id number] [place] [address] 28 Dec, 2014 Alkalosis 276.3 ; Chronic kidney disease, Stage IV (severe) 585.4 ; Hyperpotassemia 276.7 ; Secondary hyperparathyroidism, renal 588.81 ; Proteinuria 791.0 ; Unspecified vitamin D deficiency 268.9 ; Anemia in chronic kidney disease 285.21 ; Other and unspecified hyperlipidemia 272.4 ; Hypertension, essential, benign 401.1 and Chronic kidney disease (CKD), stage III (moderate) 585.3 [place] [id number] [place] [address] Dec, [place] [id number] [place] [address] Dec, Depressive disorder, not elsewhere classified 311 and Generalized anxiety disorder 300.02 [place] [id number] [place] [address] Dec, [facility] [id number] [place] [address] Dec, [place] [id number] [place] [address] Nov, Depressive disorder, not elsewhere classified 311 and Generalized anxiety disorder 300.02 [place] [id number] [place] [address] Nov, Arthritis of both knees 716.[address] [address] 07 Nov, 2014 PAF (paroxysmal atrial fibrillation) 427.31 ; CAD (coronary artery disease) 414.00 ; Chest pain 786.50 and Chronic kidney disease (CKD) stage G4/A1, severely decreased glomerular filtration rate (GFR) between 15-29 mL/min/1.73 square meter and albuminuria creatinine ratio less than 30 mg/g 585.4 [place] [id number] [place] [address] Oct, Coronary atherosclerosis of unspecified type of vessel, [place]ock or graft 414.00 ; Chronic kidney disease, Stage IV (severe) 585.4 ; Hypertension 401.9 and Edema 782.[address] [address] Oct, Depressive disorder, not elsewhere classified 311 and Generalized anxiety disorder 300.[address] [address] Oct, Depressive disorder, not elsewhere classified 311 and Generalized anxiety disorder 300.02 [place] [id number] [place] [address] Oct, [address] [address] Oct, [place] [id number] [place] [address] Sep, [place] [id number] [place] [address] Sep, Chronic kidney disease, Stage IV (severe) 585.4 [place] [id number] [place] [address] Sep, [place] [id number] [place] [address] Sep, Coronary atherosclerosis of unspecified type of vessel, [place] or graft 414.00 ; Hypertension 401.9 ; Edema 782.3 and Hypothyroidism 244.9 [place] [id number] [place] [address] Sep, Coronary atherosclerosis of unspecified type of vessel, [place] or graft 414.00 ; Hypertension 401.9 ; Fibromyalgia 729.1 ; Edema 782.3 ; Hypothyroidism 244.9 and Anemia 285.9 [id number] [address] Sep, Anxiety disorder, unspecified 300.00 and Depressive disorder, not elsewhere classified 311 [facility] [id number] [address] Sep, [facility] [id number] [place] [address] August, Generalized anxiety disorder 300.02 [facility] [id number] [place] [address] August, Closed fracture of lateral malleolus 824.2 [facility] [id number] [place] [address] Jul, [facility] [id number] [place] [address] Jul, [facility] [id number] [place] [address] Jun, [facility] [address] [address] Jun, [facility] [address] [address] Jun, [facility] [address] [address] Jun, [facility] [address] [address] Jun, [facility] [address] [address] Jun, [facility] [address] [address] May, [facility] [address] [address] May, [facility] [address] [address] b, 2014 [facility] [place] [facility] [address] [id number] [place] [address] 18 May, 2014 [facility] [place] [facility] [address] [id number] [place] [address] 16 May, 2014 [facility] [place] [facility] [address] [facility] [id number] [place] [address] 16 May, 2014 [facility] [place] [facility] [address] [id number] [place] [address] 13 May, 2014 [facility] [place] [facility] [address] [id number] [place] [address] 13 May, 2014 [facility] [place] [facility] [address] [facility] [id number] [place] [address] 10 May, 2014 [facility] [place] [facility] [address] [facility] [id number] [place] [address] 10 May, 2014 [facility] [place] [facility] [address] [facility] [id number] [place] [address] Apr, [facility] [place] [facility] [address] [facility] [id number] [place] [address] Apr, [facility] [place] [facility] [address] [facility] [id number] [place] [address] Mar, [facility] [place] [facility] [address] [facility] [id number] [place] [address] Mar, [facility] [place] [facility] [address] [facility] [id number] [place] [address] Mar, [facility] [place] [facility] [address] [facility] [id number] [place] [address] Mar, [facility] [place] [facility] [address] [facility] [id number] [place] [address] 15 Mar, 2014 [facility] [place] [facility] [address] [facility] [id number] [place] [address] 15 Mar, 2014 [facility] [place] [facility] [address] [id number] [place] [address] Mar, [facility] [place] [facility] [address] [id number] [place] [address] Feb, [facility] [place] [facility] [address] [id number] [place] [address] Feb, [facility] [place] [facility] [address] [id number] [place] [address] Feb, [facility] [place] [facility] [address] [id number] [place] [address] Jan, [facility] [place] [facility] [address] [id number] [place] [address] Jan, [facility] [place] [facility] [address] [id number] [place] [address] Jan, [facility] [place] [facility] [address] [id number] [place] [address] Jan, [facility] [place] [facility] [address] [id number] [place] [address] Jan, [facility] [place] [facility] [address] [id number] [place] [address] Jan, [facility] [place] [facility] [address] [id number] [place] [address] Jan, [facility] [place] [facility] [address] [id number] [place] [address] Jan, [facility] [place] [facility] [address] [id number] [place] [address] Jan, [facility] [place] [facility] [address] [id number] [place] [address] Jan, [facility] [place] [facility] [address] [id number] [place] [address] Nov, [facility] [place] [facility] [address] [id number] [place] [address] Nov, [facility] [place] [facility] [address] [id number] [place] [address] Nov, [facility] [place] [facility] [address] [id number] [place] [address] Oct, [facility] [place] [facility] [address] [id number] [place] [address] Oct, [facility] [place] [facility] [address] [id number] [place] [address] Oct, [facility] [place] [facility] [address] [id number] [place] [address] Oct, [facility] [place] [facility] [address] [id number] [place] [address] Oct, [facility] [place] [facility] [address] [id number] [place] [address] Oct, [facility] [place] [facility] [address] [id number] [place] [address] Oct, [facility] [place] [facility] [address] [id number] [place] [address] Oct, [facility] [place] [facility] [address] [id number] [place] [address] Oct, [facility] [place] [facility] [address] [id number] [place] [address] Sep, [facility] [place] [facility] [address] [id number] [place] [address] Sep, [facility] [place] [facility] [address] [id number] [place] [address] Sep, [facility] [place] [facility] [address] [id number] [place] [address] Sep, [facility] [place] [facility] [address] [id number] [place] [address] Sep, [facility] [place] [facility] [address] [id number] [place] [address] Sep, [facility] [place] [facility] [address] [id number] [place] [address] Sep, [facility] [place] [facility] [address] [id number] [place] [address] Sep, [facility] [place] [facility] [address] [id number] [place] [address] Sep, [facility] [place] [facility] [address] [id number] [place] [address] August, [facility] [place] [facility] [address] [id number] [place] [address] August, [facility] [place] [facility] [address] [id number] [place] [address] August, [facility] [place] [facility] [address] [id number] [place] [address] August, [facility] [place] [facility] [address] [id number] [place] [address] August, [facility] [place] [facility] [address] [id number] [place] [address] August, [facility] [place] [facility] [address] [id number] [place] [address] Jul, [facility] [place] [facility] [address] [id number] [place] [address] Jul, [facility] [place] [facility] [address] [id number] [place] [address] Jul, [facility] [place] [facility] [address] [id number] [place] [address] Jul, [facility] [place] [facility] [address] [id number] [place] [address] Jul, [facility] [place] [facility] [address] [id number] [place] [address] Jul, [facility] [place] [facility] [address] [id number] [place] [address] Jun, [facility] [place] [facility] [address] [id number] [place] [address] Jun, [facility] [place] [facility] [address] [id number] [place] [address] May, [facility] [place] [facility] [address] [id number] [place] [address] May, [facility] [place] [facility] [address] [id number] [place] [address] May, [facility] [place] [facility] [address] [id number] [place] [address] May, [facility] [place] [facility] [address] [id number] [place] [address] Apr, [facility] [place] [facility] [address] [id number] [place] [address] Apr, [facility] [place] [facility] [address] [id number] [place] [address] Mar, [facility] [place] [facility] [address] [id number] [place] [address] Mar, [facility] [place] [facility] [address] [id number] [place] [address] Mar, [facility] [place] [facility] [address] [id number], [place] [address] Mar, [facility] [place] [facility] [address] [id number] [place] [address] Mar, [facility] [place] [facility] [address] [id number] [place] [address] Mar, [facility] [place] [facility] [address] [id number] [place] [address] Feb, [facility] [place] [facility] [address] [id number], [place] [address] Feb, [facility] [place] [facility] [address] [id number] [place] [address] Feb, [facility] [place] [facility] [address] [id number] [place] [address] Feb, [facility] [place] [facility] [address] [facility] [id number] [place] [address] Feb, [facility] [place] [facility] [address] [id number] [place] [address] Feb, [facility] [place] [facility] [address] [id number] [place] [address] Jan, [facility] [place] [facility] [address] [id number] [place] [address] Jan, [facility] [place] [facility] [address] [facility] [id number], [place] [address] Jan, [facility] [place] [facility] [address] [id number] [place] [address] Jan, [facility] [place] [facility] [address] [facility] [id number] [place] [address] Jan, [facility] [place] [facility] [address] [facility] [id number] [place] [address] Jan, [facility] [place] [facility] [address] [id number], [place] [address] Dec, [facility] [place] [facility] [address] [id number], [place] [address] Dec, [facility] [place] [facility] [address] [id number], [place] [address] Nov, [facility] [place] [facility] [address] [facility] [id number], [place] [address] Nov, [facility] [place] [facility] [address] [facility] [id number] [place] [address] Oct, [facility] [place] [facility] [address] [id number] [place] [address] Oct, [facility] [place] [facility] [address] [id number] [place] [address] Oct, [facility] [place] [facility] [address] [id number] [place] [address] Oct, [facility] [place] [facility] [address] [id number] [place] [address] Oct, [facility] [place] [facility] [address] [id number] [place] [address] Oct, [facility] [place] [facility] [address] [id number] [place] [address] Sep, [facility] [place] [facility] [address] [id number] [place] [address] Sep, [facility] [place] [facility] [address] [id number] [place] [address] Sep, [facility] [place] [facility] [address] [id number] [place] [address] Sep, [facility] [place] [facility] [address] [id number] [place] [address] August, [facility] [place] [facility] [address] [id number] [place] [address] August, [facility] [place] [facility] [address] [id number] [place] [address] August, [facility] [place] [facility] [address] [id number] [place] [address] August, [facility] [place] [facility] [address] [id number] [place] [address] August, [facility] [place] [facility] [address] [id number] [place] [address] Jul, [facility] [place] [facility] [address] [id number] [place] [address] Jul, [facility] [place] [facility] [address] [id number] [place] [address] Jul, [facility] [place] [facility] [address] [id number] [place] [address] Jul, [facility] [place] [facility] [address] [id number] [place] [address] Jul, [facility] [place] [facility] [address] [id number] [place] [address] Jul, [facility] [place] [facility] [address] [id number] [place] [address] Jul, [facility] [place] [facility] [address] [id number] [place] [address] Jul, [facility] [place] [facility] [address] [id number] [place] [address] Jul, [facility] [place] [facility] [address] [id number] [place] [address] Jul, [facility] [address] [facility] [id number][place] [id number] Jun, [facility] [place] [facility] [address] [id number], [place] [address] Jun, [facility] [place] [facility] [address] [id number], [place] [address] Jun, [facility] [place] [facility] [address] [id number], [place] [address] Jun, [facility] [place] [facility] [address] [id number] [place] [address] Jun, [facility] [place] [facility] [address] [id number], [place] [address] May, [facility] [place] [facility] [address] [id number], [place] [address] May, [facility] [place] [facility] [address] [id number] [place] [address] 07 May, 2012 [facility] [address] [id number] [place] [address] Apr, [facility] [address] [id number] [place] [address] Apr, [facility] [address] [id number] [place] [address] Apr, [facility] [place] [facility] [address] [id number] [place] [address] Apr, [facility] [address] [id number] [place] [address] Apr, [facility] [address] [id number] [place] [address] Apr, [facility] [address] [id number] [place] [address] Mar, [facility] [address] [id number] [place] [address] Mar, [facility] [address] [id number] [place] [address] Mar, [facility] [address] [facility] [id number] [place] [address] Mar, [facility] [address] [id number] [place] [address] Feb, [facility] [place] [facility] [address] [id number], [place] [address] Feb, [facility] [place] [facility] [address] [id number] [place] [address] Feb, [facility] [place] [facility] [address] [id number] [place] [address] Feb, [facility] [place] [facility] [address] [id number], [place] [address] Feb, [facility] [place] [facility] [address] [id number] [place] [address] Feb, [facility] [place] [facility] [address] [id number] [place] [address] Feb, [facility] [place] [facility] [address] [id number] [place] [address] Feb, [facility] [place] [facility] [address] [id number] [place] [address] Feb, [facility] [place] [facility] [address] [id number] [place] [address] Feb, [facility] [place] [facility] [address] [id number] [place] [address] Feb, [facility] [place] [facility] [address] [id number] [place] [address] Feb, [facility] [place] [facility] [address] [id number] [place] [address] Feb, [facility] [place] [facility] [address] [id number] [place] [address] Feb, [facility] [place] [facility] [address] [id number] [place] [address] Feb, [facility] [place] [facility] [address] [id number] [place] [address] Feb, [facility] [place] [facility] [address] [id number] [place] [address] Jan, [facility] [place] [facility] [address] [id number] [place] [address] Jan, [facility] [place] [facility] [address] [id number] [place] [address] Jan, [facility] [place] [facility] [address] [id number] [place] [address] Jan, [facility] [place] [facility] [address] [id number] [place] [address] 30 Jan, 2012 [facility] [place] [facility] [address] [id number] [place] [address] Jan, [facility] [place] [facility] [address] [id number] [place] [address] Jan, [facility] [place] [facility] [address] [id number] [place] [address] Jan, [facility] [place] [facility] [address] [id number] [place] [address] 16 Jan, 2012 [facility] [place] [facility] [address] [id number] [place] [address] Jan, [facility] [place] [facility] [address] [id number] [place] [address] 15 Jan, 2012 [facility] [place] [facility] [address] [id number] [place] [address] Jan, [facility] [place] [facility] [address] [id number], [place] [address] 26 Sep2011 [facility] [place] [facility] [address] [id number] [place] [address] 26 Sep2011 [facility] [place] [facility] [address] [id number] [place] [address] 24 Sep2011 [facility] [place] [facility] [address] [id number], [place] [address] 23 Sep, 2011 [facility] [place] [facility] [address] [id number], [place] [address] 22 Sep, 2011 [facility] [place] [facility] [address] [id number] [place] [address] 21 Sep2011 [facility] [place] [facility] [address] [facility] [id number], [place] [address] 20 Sep, 2011 [facility] [place] [facility] [address] [id number], [place] [address] 20 Dec, 2011 [facility] [place] [facility] [address] [id number] [place] [address] 07 Sep, 2011 [facility] [address] [id number] [place] [address] 06 Sep, 2011 [facility] [place] [facility] [address] [id number] [place] [address] 06 Dec, 2011 [facility] [place] [facility] [address] [id number] [place] [address] 05 Dec, 2011 [facility] [place] [facility] [address] [id number] [place] [address] 23 Nov, 2011 [facility] [place] [facility] [address] [id number] [place] [address] 17 Nov, 2011 [facility] [place] [facility] [address] [id number] [place] [address] 13 Nov, 2011 [facility] [address] [id number] [place] [address] Nov, [facility] [address] [id number] [place] [address] 08 Nov, 2011 [facility] [place] [facility] [address] [id number] [place] [address] Nov, [facility] [address] [id number] [place] [address] Nov, [facility] [place] [facility] [address] [id number] [place] [address] Nov, [facility] [place] [facility] [address] [id number] [place] [address] Oct, [facility] [place] [facility] [address] [id number] [place] [address] Oct, [facility] [place] [facility] [address] [id number] [place] [address] Oct, [facility] [place] [facility] [address] [id number] [place] [address] Oct, [facility] [place] [facility] [address] [id number] [place] [address] Oct, [facility] [place] [facility] [address] [id number] [place] [address] Oct, [facility] [place] [facility] [address] [id number] [place] [address] Oct, [facility] [place] [facility] [address] [id number] [place] [address] Sep, [facility] [place] [facility] [address] [id number] [place] [address] Sep, [facility] [place] [facility] [address] [id number] [place] [address] August, [facility] [place] [facility] [address] [id number] [place] [address] August, [facility] [place] [facility] [address] [id number] [place] [address] August, [facility] [place] [facility] [address] [id number] [place] [address] August, [facility] [place] [facility] [address] [id number] [place] [address] Jul, [facility] [place] [facility] [address] [id number] [place] [address] Jul, [facility] [place] [facility] [address] [id number] [place] [address] Jul, [facility] [place] [facility] [address] [id number] [place] [address] Jul, [facility] [place] [facility] [address] [id number] [place] [address] Jul, [facility] [place] [facility] [address] [id number] [place] [address] Jul, [facility] [place] [facility] [address] [id number], [place] [address] Jul, [facility] [address] [id number] [place] [address] Jul, [facility] [place] [facility] [address] [id number] [place] [address] Jul, [facility] [address] [id number] [place] [address] 23 Jun, 2011 [facility] [place] [facility] [address] [id number] [place] [address] 19 Jun, 2011 [facility] [address] [id number] [place] [address] 15 Jun, 2011 [facility] [address] [id number] [place] [address] 14 Jun, 2011 [facility] [address] [id number] [place] [address] Jun, [facility] [place] [facility] [address] [facility] [id number] [place] [address] Jun, [facility] [address] [facility] [id number] [place] [address] Jun, [facility] [address] [facility] [id number] [place] [address] May, [facility] [place] [facility] [address] [id number] [place] [address] 24 May, 2011 [facility] [place] [facility] [address] [id number], [place] [address] 16 May, 2011 [facility] [place] [facility] [address] [id number] [place] [address] May, [facility] [place] [facility] [address] [id number] [place] [address] May, [facility] [place] [facility] [address] [facility] [id number], [place] [address] Apr, [facility] [place] [facility] [address] [id number] [place] [address] Apr, [facility] [place] [facility] [address] [id number] [place] [address] Apr, [facility] [place] [facility] [address] [id number] [place] [address] Apr, [facility] [place] [facility] [address] [id number] [place] [address] Apr, [facility] [place] [facility] [address] [id number] [place] [address] Mar, [facility] [place] [facility] [address] [id number] [place] [address] Mar, [facility] [place] [facility] [address] [id number] [place] [address] Mar, [facility] [place] [facility] [address] [id number] [place] [address] Mar, [facility] [place] [facility] [address] [id number] [place] [address] Mar, [facility] [place] [facility] [address] [id number] [place] [address] Mar, [facility] [place] [facility] [address] [id number] [place] [address] Mar, [facility] [place] [facility] [address] [id number] [place] [address] Feb, [facility] [place] [facility] [address] [id number] [place] [address] Feb, [facility] [place] [facility] [address] [id number] [place] [address] Feb, [facility] [place] [facility] [address] [id number] [place] [address] Feb, [facility] [place] [facility] [address] [id number], [place] [address] Jan, [facility] [address] [id number] [place] [address] Jan, [facility] [address] [id number], [place] [address] Jan, [facility] [address] [facility] [id number], [place] [address] Jan, [facility] [address] [id number], [place] [address] Nov, [facility] [address] [id number] [place] [address] Mar, [facility] [address] [facility] [id number], [place] [address] Mar, [facility] [address] [facility] [id number], [place] [address] Mar, [facility] [address] [facility] [id number], [place] [address] Mar, [facility] [address] [facility] [id number], [place] [address] Mar, [facility] [address] [facility] [id number], [place] [address] Mar, [facility] [address] [facility] [id number], [place] [address] Feb, [facility] [address] [facility] [id number], [place] [address] Feb, [facility] [address] [facility] [id number], [place] [address] Jan, [facility] [address] [facility] [id number], [place] [address] Jan, [facility] [address] [facility] [id number], [place] [address] Jan, IMMUNIZATIONS No Known Immunizations SOCIAL HISTORY Never Assessed REASON FOR VISIT EMR-[facility] OF CARE VITAL SIGNS MEDICATIONS Unknown [...] surgery 2018 Surgical History cataract surgery 2018 Hospitalization History Surgeries Only Hospitalization History 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
--- OUTSIDE RECORDS SUMMARY | 2018-10-26 12:22 | XMS REPORT ---
Author Author Migration, Doctor Organization [facility] Address Unknown Phone Unavailable Care Team Providers Care Bending Press Operator Name Role Phone Migration, Doctor Unavailable Unavailable PROBLEMS Type Condition ICD9-CM Code WSA10-NN Code Onset Dates Condition Status SNOMED Code Problem Restless leg G25.81 Active 35213441 Problem Insomnia G47.00 Active 308912504 Problem Hypothyroid E03.9 Active 44193892 Problem Palpitations R00.2 Active 13168190 Problem Asthma J45.909 Active 521955901 Problem Chronic kidney disease, stage 4 (severe) N18.4 Active 258870755 Problem Depressed F32.9 Active 21462606 Problem Bipolar disorder, current episode manic without psychotic features F31.10 Active 797986153 Problem Generalized anxiety disorder F41.1 Active 60894389 Problem Anemia in chronic kidney disease D63.1 Active 273815154394234 Problem Low back pain M54.5 Active 162623216 Problem Coronary artery disease involving [place] coronary artery of [place] heart, angina presence unspecified I25.10 Active 5265271610429 Problem Dysthymic disorder F34.1 Active 84196407 Problem Other seasonal allergic rhinitis J30.2 Active 028890592 Problem History of anemia Z86.2 Active 512129573 Problem Fibromyalgia M79.7 Active 172239022 Problem Hypokalemia E87.6 Active 80973629 Problem Vitamin D deficiency E55.9 Active 83813477 Problem Mixed stress and urge urinary incontinence N39.46 Active 518814695 Problem Chronic kidney disease, unspecified N18.9 Active 917195168 Problem Abnormal chest CT R93.8 Active 145417355 Problem Essential (primary) hypertension I10 Active 69017213 Problem Long-term use of high-risk medication Z79.899 Active 056433586 Problem Degenerative tear of medial meniscus of left knee M23.204 Active 765467914 Problem Primary osteoarthritis of left knee M17.12 Active 411225973 Problem Mood disorder F39 Active 29378888 Problem Chronic pain syndrome G89.4 Active 844314286 Problem History of colon polyps Z86.010 Active 032802953 Problem Perimenopausal vasomotor symptoms N95.1 Active 432269661 Problem Functional diarrhea K59.1 Active 02963350 Problem Asthma with acute exacerbation in adult J45.901 Active 829003354 Problem Stage 3 chronic kidney disease N18.3 Active 949266396 Problem Body mass index (BMI) of 40.0-44.9 in adult Z68.41 Active 210790880 Problem Seasonal allergic rhinitis due to pollen J30.1 Active 02157523 Problem Restless leg syndrome G25.81 Active 82882817 ALLERGIES No Information ENCOUNTERS Encounter Location Date Diagnosis [facility] [id number] [address] Sep, [facility] [id number] [place] [address] August, [facility] [id number] [place] [address] August, [facility] [id number] [place] [address] August, [facility] [id number] [place] [address] Jul, Urinary tract infection without hematuria, site unspecified N39.0 [facility] [id number] [place] [address] Jul, [facility] [id number] [place] [address] Jul, [facility] [id number] [place] [address] Jul, Fibromyalgia M79.7 [facility] [id number] [place] [address] Jul, Acute pain of right shoulder M25.511 [facility] [id number] [place] [address] Jul, Acute pain of right shoulder M25.511 and Morbid obesity E66.01 [facility] [id number] [place] [address] Jun, [facility] [id number] [place] [address] Jun, Generalized anxiety disorder F41.1 and Major depressive disorder, recurrent episode with anxious distress F33.9 [facility] [id number] [place] [address] Jun, [address] [address] [address] Jun, Fibromyalgia M79.7 [facility] [address] [address] Jun, Acute pain of right shoulder M25.511 ; Acute pain of right hip M25.551 and Morbid obesity E66.01 [address] [address] [address] 11 May, 2018 Burning with urination R30.0 ; Vaginal discharge N89.8 ; Chronic kidney disease, stage 4 (severe) N18.4 ; Body mass index (BMI) of 40.0-44.9 in adult Z68.41 and Morbid obesity E66.01 [place] [id number] [place] [address] 07 May, 2018 Fibromyalgia M79.7 [facility] [id number] [place] [address] May, Generalized anxiety disorder F41.1 and Major depressive disorder, recurrent episode with anxious distress F33.9 [facility] [id number] [place] [address] Apr, [facility] [id number] [place] [address] Apr, Fibromyalgia M79.7 [facility] [id number] [place] [address] Mar, Acute UTI N39.0 and Dysuria R30.0 [facility] [address] [place] [address] Mar, Fibromyalgia M79.7 [facility] [id number] [place] [address] 15 Feb, 2018 [facility] [id number] [place] [address] Feb, [facility] [id number] [place] [address] Feb, [facility] [id number] [place] [address] Feb, Fibromyalgia M79.7 [facility] [id number] [place] [address] 08 Feb, 2018 Complicated UTI (urinary tract infection) N39.0 [facility] [id number] [place] [address] Feb, [facility] [id number] [place] [address] Jan, Generalized anxiety disorder F41.1 and Major depressive disorder, recurrent episode with anxious distress F33.9 [facility] [address] [place] [address] Jan, Acute conjunctivitis of left eye, unspecified acute conjunctivitis type H10.32 [facility] [address] [place] [address] Jan, [facility] [address] [place] [address] Jan, Acute non-recurrent maxillary sinusitis J01.00 ; Dysuria R30.0 ; Perimenopausal vasomotor symptoms N95.1 and Fibromyalgia M79.7 [facility] [address] [place] [address] Dec, Vitamin D deficiency E55.9 [facility] [id number] [place] [address] Dec, Vitamin D deficiency E55.9 [place] [address] [address] 24 Dec, 2017 Vitamin D deficiency E55.9 [facility] [id number] [place] [address] Dec, [place] [address] [address] Dec, Fibromyalgia M79.7 [place] [address] [address] Nov, [place] [address] [address] Nov, [place] [address] [address] Nov, [place] [address] [address] Nov, Fibromyalgia M79.7 ; Vision changes H53.9 ; Chest wall pain R07.89 and Chronic pain syndrome G89.4 [facility] [id number] [place] [address] Nov, [facility] [id number] [place] [address] Nov, Rash of hands R21 [place] [address] [address] Nov, Generalized anxiety disorder F41.1 and Major depressive disorder, recurrent episode with anxious distress F33.9 [place] [address] [address] Nov, Fibromyalgia M79.7 [facility] [id number] [place] [address] Nov, Complicated UTI (urinary tract infection) N39.0 [facility] [id number] [place] [address] Oct, [facility] [id number] [place] [address] Oct, Generalized anxiety disorder F41.1 and Major depressive disorder, recurrent episode with anxious distress F33.9 [facility] [id number] [place] [address] Oct, [facility] [id number] [place] [address] Oct, Fibromyalgia M79.7 [place] [address] [address] Sep, Restless leg syndrome G25.81 and Restless leg G25.81 [facility] [address] [place] [address] Sep, [facility] [id number] [place] [address] Sep, Seasonal allergic rhinitis due to pollen J30.1 ; Screening for breast cancer Z12.31 ; Chest pain at rest R07.9 ; Restless leg syndrome G25.81 ; Essential (primary) hypertension I10 and Depressed F32.9 [facility] [id number] [place] [address] August, Fibromyalgia M79.7 [facility] [address] [place] [address] August, [facility] [id number] [place] [address] August, [place] [address] [address] August, Abnormal chest CT R93.8 [facility] [id number] [place] [address] August, Generalized anxiety disorder F41.1 and Major depressive disorder, recurrent episode with anxious distress F33.9 [facility] [id number] [place] [address] August, Abnormal chest [address] R93.8 [facility] [id number] [place] [address] Jul, [facility] [address] [place] [address] Jul, Chronic kidney disease, stage 4 (severe) N18.4 [facility] [facility] [address] [place] [address] Jul, [place] [address] [address] Jul, Restless leg G25.81 ; Mixed stress and urge urinary incontinence N39.46 and Fibromyalgia M79.7 [facility] [facility] [address] [place] [address] Jul, Chronic kidney disease, stage 4 (severe) N18.4 [facility] [address] [place] [address] Jun, Orthostatic hypotension I95.1 ; Chronic kidney disease, stage 4 (severe) N18.4 ; Chest wall discomfort R07.89 and Body mass index (BMI) of 40.0-44.9 in adult Z68.41 [facility] [facility] [address] [place] [address] Jun, [facility] [facility] [address] [place] [address] Jun, Orthostatic hypotension I95.1 [place] [address] [place] [address] Jun, [facility] [id number] [place] [address] Jun, Orthostatic hypotension I95.1 ; Dysuria R30.0 and Acute cystitis without hematuria N30.00 [facility] [address] [address] Jun, [facility] [id number] [place] [address] Jun, Chronic kidney disease, stage 4 (severe) N18.4 [facility] [id number] [place] [address] Jun, Fibromyalgia M79.7 [facility] [id number] [place] [address] Jun, [facility] [id number] [place] [address] Jun, [facility] [address] [place] [address] May, Abnormal chest [address] R93.8 and Stage 3 chronic kidney disease N18.3 [facility] [id number] [place] [address] May, Chronic kidney disease, stage 4 (severe) N18.4 [facility] [id number] [place] [address] May, Chronic kidney disease, stage 4 (severe) N18.4 [facility] [id number] [place] [address] May, Abnormal chest [address] R93.8 [facility] [address] [place] [address] May, [facility] [id number] [place] [address] May, [facility] [id number] [place] [address] May, Generalized anxiety disorder F41.1 and Major depressive disorder, recurrent episode with anxious distress F33.9 [facility] [id number] [place] [address] May, Mood disorder F39 [facility] [address] [place] [address] Apr, [facility] [address] [place] [address] Apr, Infected skin lesion L08.9 and Muscle strain of right shoulder region, initial encounter S46.911A [facility] [id number] [place] [address] Apr, Generalized anxiety disorder F41.1 and Major depressive disorder, recurrent episode with anxious distress F33.9 [facility] [id number] [place] [address] Apr, [facility] [address] [place] [address] Apr, Recent urinary tract infection Z87.440 and Hypothyroid E03.9 [facility] [address] [place] [address] Apr, Generalized anxiety disorder F41.1 and Major depressive disorder, recurrent episode with anxious distress F33.9 [facility] [address] [place] [address] Apr, Recent urinary tract infection Z87.440 [facility] [address] [place] [address] Mar, [facility] [address] [place] [address] Mar, Dysuria R30.0 ; Acute cystitis without hematuria N30.00 and BMI 40.0- 44.9, adult Z68.41 [facility] [address] [place] [address] Mar, [facility] [address] [place] [address] Mar, [facility] [id number] [place] [address] Mar, Generalized anxiety disorder F41.1 and Major depressive disorder, recurrent episode with anxious distress F33.9 [facility] [id number] [place] [address] Feb, Conjunctivitis, bacterial H10.9 [facility] [address] [address] Feb, [facility] [address] [address] Feb, Conjunctivitis, bacterial H10.9 [place] [address] [address] Feb, [facility] [id number] [place] [address] Feb, Dysuria R30.0 ; Acute cystitis N30.00 and BMI 40.0-44.9, adult Z68.41 [place] [id number] [place] [address] Feb, [place] [address] [address] Feb, Generalized anxiety disorder F41.1 and Major depressive disorder, recurrent episode with anxious distress F33.9 [facility] [id number] [place] [address] Feb, Mood disorder F39 and BMI 40.0-44.9, adult Z68.41 [facility] [address] [place] [address] Jan, [place] [address] [address] Jan, [place] [address] [address] Jan, Hypothyroid E03.9 [place] [address] [address] Jan, [facility] [id number] [place] [address] Jan, Chronic kidney disease, unspecified N18.9 ; Hypokalemia E87.6 ; Essential (primary) hypertension I10 ; Fibromyalgia M79.7 ; Coronary artery disease involving [place] tribe coronary artery of [place] tribe heart, angina presence unspecified I25.10 ; Hypothyroid E03.9 and Encounter for immunization Z23 [place] [address] [place] [address] Jan, Hypothyroid E03.9 [place] [address] [address] Jan, [facility] [facility] [id number] [place] [address] Dec, Vitamin D deficiency E55.9 [facility] [facility] [address] [place] [address] 28 Dec, 2016 Primary osteoarthritis of left knee M17.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 [place] [address] [place] [address] 19 Dec, 2016 Fibromyalgia M79.7 [facility] [address] [place] [address] 18 Dec, 2016 Mood disorder F39 [facility] [address] [place] [address] 13 Dec, 2016 [facility] [id number] [place] [address] 13 Dec, 2016 Generalized anxiety disorder F41.1 and Major depressive disorder, recurrent episode with anxious distress F33.9 [facility] [address] [place] [address] 11 Dec, 2016 [facility] [id number] [place] [address] 08 Dec, 2016 Streptococcal meningitis G00.2 [facility] [address], [place] [address] 07 Dec, 2016 Streptococcal meningitis G00.2 [facility] [address], [place] [address] 07 Dec, 2016 [facility] [address] [address] Dec, [facility] [address] [place] [address] Dec, Streptococcal meningitis G00.2 [facility] [address] [place] [address] Dec, Major depressive disorder, recurrent episode with anxious distress F33.9 [facility] [address], [place] [address] Nov, Fever, unspecified fever cause R50.9 [facility] [address], [place] [address] Nov, [facility] [address] [place] [address] Nov, Hypothyroid E03.9 [facility] [address] [place] [address] Nov, Generalized anxiety disorder F41.1 and Major depressive disorder, recurrent episode with anxious distress F33.9 [facility] [address] [address] Nov, [facility] [address] [address] Oct, Dental examination Z01.20 [facility] [address] [place] [address] Oct, Generalized anxiety disorder F41.1 and Major depressive disorder, recurrent episode with anxious distress F33.9 [facility] [address] [place] [address] Oct, Chronic kidney disease, stage 4 (severe) N18.4 [place] [address] [place] [address] Oct, [facility] [id number] [place] [address] Oct, Fibromyalgia M79.7 [facility] [address] [place] [address] Oct, [facility] [id number] [place] [address] Oct, Generalized anxiety disorder F41.1 ; Major depressive disorder, recurrent episode with anxious distress F33.9 and Bipolar disorder, current episode manic without psychotic features F31.10 [facility] [id number] [place] [address] Sep, [facility] [id number] [place] [address] Sep, [facility] [id number] [place] [address] Sep, Vitamin D deficiency E55.9 [facility] [address] [place] [address] Sep, Vitamin D deficiency E55.9 [facility] [address] [place] [address] Sep, [facility] [address] [place] [address] Sep, Chronic kidney disease, stage 4 (severe) [...] tribe heart, angina presence unspecified I25.10 ; Screening breast examination Z12.39 and Low back pain M54.5 [facility] [id number] [place] [address] August, Generalized anxiety disorder F41.1 and Major depressive disorder, recurrent episode with anxious distress F33.9 [facility] [id number] [place] [address] August, Generalized anxiety disorder F41.1 and Major depressive disorder, recurrent episode with anxious distress F33.9 [facility] [id number] [place] [address] August, Fibromyalgia M79.7 [place] [address] [address] Jul, Generalized anxiety disorder F41.1 and Major depressive disorder, recurrent episode with anxious distress F33.9 [facility] [id number] [place] [address] Jul, Fibromyalgia M79.7 [facility] [address] [place] [address] Jul, Generalized anxiety disorder F41.1 [facility] [address] [place] [address] May, [facility] [facility] [address] [place] [address] May, Hypothyroid E03.9 [facility] [id number] [place] [phone] May, Chronic kidney disease, stage 4 (severe) [...] indian tribe heart, angina presence unspecified I25.10 [facility] [id number] [address] May, Vitamin D deficiency, unspecified E55.9 [facility] ([facility] [id number] [place] [address] May, Generalized anxiety disorder F41.1 and Major depressive disorder, recurrent episode with anxious distress F33.9 [facility] ([facility] [id number] [place] [address] Apr, Pain in right knee M25.561 and Pain in left knee M25.562 [facility] [place] [id number] [place] [address] Apr, [facility] ([facility] [id number] [place] [address] Apr, [facility] ([facility] [id number] [place] [address] Apr, [facility] ([facility] [id number] [place] [address] Mar, Generalized anxiety disorder F41.1 and Major depressive disorder, recurrent episode with anxious distress F33.9 [facility] [id number] [place] [address] Mar, Generalized anxiety disorder F41.1 and Major depressive disorder, recurrent episode with anxious distress F33.9 [facility] [id number] [place] [address] Mar, [facility] [id number] [place] [address] Mar, [facility] [id number] [place] [address] Mar, [facility] ([facility] [id number] [place] [address] Mar, Asthma J45.909 and Fibromyalgia M79.7 [facility] [id number] [place] [address] Mar, Chronic kidney disease, stage 4 (severe) N18.4 ; Vitamin D deficiency E55.9 and Essential (primary) hypertension I10 [facility] [id number] [place] [address] Feb, [place] [id number] [place] [address] Feb, Dysuria R30.0 ; Mixed stress and urge urinary incontinence N39.46 ; Fibromyalgia M79.7 and Chronic kidney disease, stage IV (severe) N18.4 [place] [address] [address] Feb, Chronic kidney disease, stage 4 (severe) N18.4 [place] [id number] [place] [address] Feb, Chronic kidney disease, stage 4 (severe) N18.4 [place] [id number] [place] [address] Feb, [place] [id number] [place] [address] Feb, Vitamin D deficiency, unspecified E55.9 [facility] [id number] [place] [address] Jan, [facility] [id number] [place] [address] Jan, [facility] [id number] [place] [address] Dec, [facility] [id number] [place] [address] Dec, Chronic kidney disease, stage 4 (severe) N18.4 [facility] [id number] [place] [address] Dec, Dysthymic disorder F34.1 and Generalized anxiety disorder F41.1 [facility] [id number] [place] [address] Dec, [facility] [address] [address] Dec, [place] [address] [address] Dec, Dysthymic disorder F34.1 and Generalized anxiety disorder F41.1 [place] [address] [address] Dec, Dysuria R30.0 ; Chronic kidney disease, stage 4 (severe) N18.4 ; Hypertension I10 ; Dyspepsia R10.13 ; Yeast dermatitis B37.2 ; Palpitations R00.2 ; Hypothyroid E03.9 ; Functional diarrhea K59.1 and Other seasonal allergic rhinitis J30.2 [facility] [address] [address] Dec, [facility] [address] [address] Nov, Dysuria R30.0 and Stress incontinence N39.3 [place] [address] [address] Nov, [place] [id number] [place] [address] Nov, [place] [address] [address] Nov, Osteoarthritis of knees, bilateral M17.0 [place] [address] [address] Nov, Dysthymic disorder F34.1 and Generalized anxiety disorder F41.1 [place] [id number] [place] [address] Nov, [place] [address] [address] Nov, [facility] [id number] [place] [address] Nov, Urgency of urination R39.15 [facility] [id number] [place] [address] Nov, [place] [id number] [place] [address] Nov, Chronic kidney disease, stage 4 (severe) N18.4 [place] [id number] [place] [address] Oct, Hypertension I10 ; Coronary artery disease involving [place] coronary artery of [place] heart, angina presence unspecified I25.10 ; Palpitations R00.2 ; Hypothyroid E03.9 ; Right foot pain M79.671 ; Functional diarrhea K59.1 and Other seasonal allergic rhinitis J30.2 [place] [id number] [place] [address] Oct, Dysthymic disorder F34.1 and Generalized anxiety disorder F41.1 [place] [id number] [place] [address] Sep, [place] [id number] [place] [address] Sep, [place] [id number] [place] [address] Sep, [facility] [id number] [place] [address] Sep, [place] [id number] [place] [address] Sep, [place] [id number] [place] [address] Sep, Dysthymic disorder F34.1 and Generalized anxiety disorder F41.1 [place] [id number] [place] [address] 16 Sep, 2015 Asthma with acute exacerbation in adult J45.901 ; Dysuria R30.0 ; Chronic kidney disease, stage 4 (severe) N18.4 and History of anemia Z86.2 [place] [id number] [place] [address] 2015 Generalized anxiety disorder F41.1 and Dysthymic disorder F34.1 [place] [address] [address] August, Screening breast examination Z12.39 and Acute recurrent maxillary sinusitis J01.01 [place] [address] [address] August, Osteoarthritis of knees, bilateral M17.0 [place] [id number] [place] [address] August, Chronic kidney disease, stage 4 (severe) N18.4 ; Acute non-recurrent maxillary sinusitis J01.00 ; Urinary problem R39.89 ; Bowel habit changes R19.4 ; Functional diarrhea K59.1 and History of colon polyps Z86.010 [place] [id number] [place] [address] Jul, Dysthymic disorder F34.1 and Generalized anxiety disorder F41.1 [place] [id number] [place] [address] Jul, [place] [address] [address] Jul, Dysthymic disorder F34.1 ; Generalized anxiety disorder F41.1 and assisted use of drug Z79.899 [place] [id number] [place] [address] Jul, [place] [id number] [place] [address] Jun, [place] [address] [address] Jun, [facility] [id number] [place] [address] May, [place] [id number] [place] [address] May, Dysthymic disorder F34.1 and Generalized anxiety disorder F41.1 [place] [id number] [place] [address] Apr, Kidney disease N28.9 [place] [id number] [place] [address] Apr, Generalized anxiety disorder F41.1 and Dysthymic disorder F34.1 [place] [id number] [place] [address] Apr, Chronic kidney disease, stage 4 (severe) N18.4 [place] [id number] [place] [address] Apr, Generalized anxiety disorder F41.1 ; Major depression, recurrent F33.9 and Sleep disturbance G47.9 [place] [id number] [place] [address] Mar, Generalized anxiety disorder F41.1 and Dysthymic disorder F34.1 [place] [id number] [place] [address] Mar, Generalized anxiety disorder F41.1 ; Dysthymic disorder F34.1 and Insomnia G47.00 [place] [id number] [place] [address] Mar, [place] [id number] [place] [address] Mar, [place] [id number] [place] [address] Mar, Osteoarthritis of knees, bilateral M17.0 [place] [id number] [place] [address] Mar, Hypertension I10 ; Hypothyroid E03.9 ; Dysthymic disorder F34.1 ; Chronic kidney disease, stage 4 (severe) N18.4 and Nausea & vomiting R11.2 [place] [id number] [place] [address] Mar, Generalized anxiety disorder F41.1 ; Dysthymic disorder F34.1 and Insomnia G47.[address] [address] Mar, Dehydration E86.0 ; Chronic kidney disease, stage 4 (severe) N18.4 and Nausea & vomiting R11.2 [facility] [id number] [place] [address] 08 Mar, 2015 Gastroenteritis K52.[address] [address] Mar, [address] [address] Mar, [address] [address] Feb, Dysthymic disorder F34.1 and Generalized anxiety disorder F41.1 [place] [id number] [place] [address] Jan, UTI (urinary tract infection) N39.0 ; Asthma J45.909 ; Coronary artery disease involving [place] coronary artery of [place] heart, angina presence unspecified I25.10 ; Hypertension I10 ; Hypothyroid E03.9 ; Vitamin D deficiency E55.9 ; Insomnia G47.00 ; Palpitations R00.2 ; Depressed F32.9 ; Restless leg G25.81 and Anxiety F41.9 [place] [id number] [place] [address] Jan, Dysthymic disorder F34.1 and Generalized anxiety disorder F41.[address] [place] [address] Jan, [place] [id number] [place] [address] Dec, [place] [id number] [place] [address] 28 Dec, 2014 Alkalosis 276.3 ; Chronic kidney disease, Stage IV (severe) 585.4 ; Hyperpotassemia 276.7 ; Secondary hyperparathyroidism, renal 588.81 ; Proteinuria 791.0 ; Unspecified vitamin D deficiency 268.9 ; Anemia in chronic kidney disease 285.21 ; Other and unspecified hyperlipidemia 272.4 ; Hypertension, essential, benign 401.1 and Chronic kidney disease (CKD), stage III (moderate) 585.3 [place] [id number] [place] [address] Dec, [place] [id number] [place] [address] Dec, Depressive disorder, not elsewhere classified 311 and Generalized anxiety disorder 300.02 [place] [id number] [place] [address] Dec, [place] [id number] [place] [address] Dec, [place] [id number] [place] [address] Nov, Depressive disorder, not elsewhere classified 311 and Generalized anxiety disorder 300.02 [place] [id number] [place] [address] Nov, Arthritis of both knees 716.[address] [address] 07 Nov, 2014 PAF (paroxysmal atrial fibrillation) 427.31 ; CAD (coronary artery disease) 414.00 ; Chest pain 786.50 and Chronic kidney disease (CKD) stage G4/A1, severely decreased glomerular filtration rate (GFR) between 15-29 mL/min/1.73 square meter and albuminuria creatinine ratio less than 30 mg/g 585.4 [place] [id number] [place] [address] Oct, Coronary atherosclerosis of unspecified type of vessel, [place] or graft 414.00 ; Chronic kidney disease, Stage IV (severe) 585.4 ; Hypertension 401.9 and Edema 782.[address] [address] Oct, Depressive disorder, not elsewhere classified 311 and Generalized anxiety disorder 300.[address] [address] Oct, Depressive disorder, not elsewhere classified 311 and Generalized anxiety disorder 300.02 [place] [id number] [place] [address] Oct, [address] [address] Oct, [place] [id number] [place] [address] Sep, [place] [id number] [place] [address] Sep, Chronic kidney disease, 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.4 [place] [id number] [place] [address] Sep, [place] [id number] [place] [address] Sep, Coronary atherosclerosis of unspecified type of vessel, [place] or graft 414.00 ; Hypertension 401.9 ; Edema 782.3 and Hypothyroidism 244.9 [place] [id number] [place] [address] Sep, Coronary atherosclerosis of unspecified type of vessel, [place] or graft 414.00 ; Hypertension 401.9 ; Fibromyalgia 729.1 ; Edema 782.3 ; Hypothyroidism 244.9 and Anemia 285.9 [place] [id number] [address] Sep, Anxiety disorder, unspecified 300.00 and Depressive disorder, not elsewhere classified 311 [facility] [id number] [address] Sep, [facility] [id number] [place] [address] August, Generalized anxiety disorder 300.02 [facility] [id number] [place] [address] August, Closed fracture of lateral malleolus 824.2 [facility] [id number] [place] [address] Jul, [facility] [id number] [place] [address] Jul, [facility] [id number] [place] [address] Jun, [facility] [address] [address] Jun, [facility] [address] [address] Jun, [facility] [address] [address] Jun, [facility] [address] [address] Jun, [facility] [address] [address] Jun, [facility] [address] [address] May, [facility] [address] [address] May, [facility] [address] [address] b, 2014 [facility] [place] [facility] [address] [id number] [place] [address] 18 May, 2014 [facility] [place] [facility] [address] [id number] [place] [address] 16 May, 2014 [facility] [place] [facility] [address] [facility] [id number] [place] [address] 16 May, 2014 [facility] [place] [facility] [address] [id number] [place] [address] 13 May, 2014 [facility] [place] [facility] [address] [id number] [place] [address] 13 May, 2014 [facility] [place] [facility] [address] [facility] [facility] [id number] [place] [address] 10 May, 2014 [facility] [place] [facility] [address] [facility] [facility] [id number] [place] [address] 10 May, 2014 [facility] [place] [facility] [address] [facility] [facility] [id number] [place] [address] Apr, [facility] [place] [facility] [address] [facility] [id number] [place] [address] Apr, [facility] [place] [facility] [address] [facility] [facility] [id number] [place] [address] Mar, [facility] [place] [facility] [address] [facility] [id number] [place] [address] Mar, [facility] [place] [facility] [address] [facility] [facility] [id number] [place] [address] Mar, [facility] [place] [facility] [address] [facility] [facility] [id number] [place] [address] Mar, [facility] [place] [facility] [address] [facility] [facility] [id number] [place] [address] 15 Mar, 2014 [facility] [place] [facility] [address] [facility] [facility] [id number] [place] [address] 15 Mar, 2014 [facility] [place] [facility] [address] [id number] [place] [address] Mar, [facility] [place] [facility] [address] [id number] [place] [address] Feb, [facility] [place] [facility] [address] [id number] [place] [address] Feb, [facility] [place] [facility] [address] [id number] [place] [address] Feb, [facility] [place] [facility] [address] [id number] [place] [address] Jan, [facility] [place] [facility] [address] [id number] [place] [address] Jan, [facility] [place] [facility] [address] [id number] [place] [address] Jan, [facility] [place] [facility] [address] [id number] [place] [address] Jan, [facility] [place] [facility] [address] [id number] [place] [address] Jan, [facility] [place] [facility] [address] [id number] [place] [address] Jan, [facility] [place] [facility] [address] [id number] [place] [address] Jan, [facility] [place] [facility] [address] [id number] [place] [address] Jan, [facility] [place] [facility] [address] [id number] [place] [address] Jan, [facility] [place] [facility] [address] [id number] [place] [address] Jan, [facility] [place] [facility] [address] [id number] [place] [address] Nov, [facility] [place] [facility] [address] [id number] [place] [address] Nov, [facility] [place] [facility] [address] [id number] [place] [address] Nov, [facility] [place] [facility] [address] [id number] [place] [address] Oct, [facility] [place] [facility] [address] [id number] [place] [address] Oct, [facility] [place] [facility] [address] [id number] [place] [address] Oct, [facility] [place] [facility] [address] [id number] [place] [address] Oct, [facility] [place] [facility] [address] [id number] [place] [address] Oct, [facility] [place] [facility] [address] [id number] [place] [address] Oct, [facility] [place] [facility] [address] [id number] [place] [address] Oct, [facility] [place] [facility] [address] [id number] [place] [address] Oct, [facility] [place] [facility] [address] [id number] [place] [address] Oct, [facility] [place] [facility] [address] [id number] [place] [address] Sep, [facility] [place] [facility] [address] [id number] [place] [address] Sep, [facility] [place] [facility] [address] [id number] [place] [address] Sep, [facility] [place] [facility] [address] [id number] [place] [address] Sep, [facility] [place] [facility] [address] [id number] [place] [address] Sep, [facility] [place] [facility] [address] [id number] [place] [address] Sep, [facility] [place] [facility] [address] [id number] [place] [address] Sep, [facility] [place] [facility] [address] [id number] [place] [address] Sep, [facility] [place] [facility] [address] [id number] [place] [address] Sep, [facility] [place] [facility] [address] [id number] [place] [address] August, [facility] [place] [facility] [address] [id number] [place] [address] August, [facility] [place] [facility] [address] [id number] [place] [address] August, [facility] [place] [facility] [address] [id number] [place] [address] August, [facility] [place] [facility] [address] [id number] [place] [address] August, [facility] [place] [facility] [address] [id number] [place] [address] August, [facility] [place] [facility] [address] [id number] [place] [address] Jul, [facility] [place] [facility] [address] [id number] [place] [address] Jul, [facility] [place] [facility] [address] [id number] [place] [address] Jul, [facility] [place] [facility] [address] [id number] [place] [address] Jul, [facility] [place] [facility] [address] [id number] [place] [address] Jul, [facility] [place] [facility] [address] [id number] [place] [address] Jul, [facility] [place] [facility] [address] [id number] [place] [address] Jun, [facility] [place] [facility] [address] [id number] [place] [address] Jun, [facility] [place] [facility] [address] [id number] [place] [address] May, [facility] [place] [facility] [address] [id number] [place] [address] May, [facility] [place] [facility] [address] [id number] [place] [address] May, [facility] [place] [facility] [address] [id number] [place] [address] May, [facility] [place] [facility] [address] [id number] [place] [address] Apr, [facility] [place] [facility] [address] [id number] [place] [address] Apr, [facility] [place] [facility] [address] [id number] [place] [address] Mar, [facility] [place] [facility] [address] [id number] [place] [address] Mar, [facility] [place] [facility] [address] [id number] [place] [address] Mar, [facility] [place] [facility] [address] [id number], [place] [address] Mar, [facility] [place] [facility] [address] [id number] [place] [address] Mar, [facility] [place] [facility] [address] [id number] [place] [address] Mar, [facility] [place] [facility] [address] [id number] [place] [address] Feb, [facility] [place] [facility] [address] [id number], [place] [address] Feb, [facility] [place] [facility] [address] [id number] [place] [address] Feb, [facility] [place] [facility] [address] [id number] [place] [address] Feb, [facility] [place] [facility] [address] [facility] [id number] [place] [address] Feb, [facility] [place] [facility] [address] [id number] [place] [address] Feb, [facility] [place] [facility] [address] [id number] [place] [address] Jan, [facility] [place] [facility] [address] [id number] [place] [address] Jan, [facility] [place] [facility] [address] [facility] [id number], [place] [address] Jan, [facility] [place] [facility] [address] [id number] [place] [address] Jan, [facility] [place] [facility] [address] [facility] [id number] [place] [address] Jan, [facility] [place] [facility] [address] [facility] [facility] [id number] [place] [address] Jan, [facility] [place] [facility] [address] [id number], [place] [address] Dec, [facility] [place] [facility] [address] [id number], [place] [address] Dec, [facility] [place] [facility] [address] [id number], [place] [address] Nov, [facility] [place] [facility] [address] [facility] [id number], [place] [address] Nov, [facility] [place] [facility] [address] [facility] [id number] [place] [address] Oct, [facility] [place] [facility] [address] [id number] [place] [address] Oct, [facility] [place] [facility] [address] [id number] [place] [address] Oct, [facility] [place] [facility] [address] [id number] [place] [address] Oct, [facility] [place] [facility] [address] [id number] [place] [address] Oct, [facility] [place] [facility] [address] [id number] [place] [address] Oct, [facility] [place] [facility] [address] [id number] [place] [address] Sep, [facility] [place] [facility] [address] [id number] [place] [address] Sep, [facility] [place] [facility] [address] [id number] [place] [address] Sep, [facility] [place] [facility] [address] [id number] [place] [address] Sep, [facility] [place] [facility] [address] [id number] [place] [address] August, [facility] [facility] [place] [facility] [address] [id number] [place] [address] August, [facility] [place] [facility] [address] [id number] [place] [address] August, [facility] [place] [facility] [address] [id number] [place] [address] August, [facility] [place] [facility] [address] [id number] [place] [address] August, [facility] [place] [facility] [address] [id number] [place] [address] Jul, [facility] [place] [facility] [address] [id number] [place] [address] Jul, [facility] [place] [facility] [address] [id number] [place] [address] Jul, [facility] [place] [facility] [address] [id number] [place] [address] Jul, [facility] [place] [facility] [address] [id number] [place] [address] Jul, [facility] [place] [facility] [address] [id number] [place] [address] Jul, [facility] [place] [facility] [address] [id number] [place] [address] Jul, [facility] [place] [facility] [address] [id number] [place] [address] Jul, [facility] [place] [facility] [address] [id number] [place] [address] Jul, [facility] [place] [facility] [address] [id number] [place] [address] Jul, [facility] [address] [facility] [id number] [id number] Jun, [facility] [place] [facility] [address] [id number], [place] [address] Jun, [facility] [place] [facility] [address] [id number], [place] [address] Jun, [facility] [place] [facility] [address] [id number], [place] [address] Jun, [facility] [place] [facility] [address] [id number] [place] [address] Jun, [facility] [place] [facility] [address] [id number], [place] [address] May, [facility] [place] [facility] [address] [id number], [place] [address] May, [facility] [place] [facility] [address] [id number] [place] [address] 07 May, 2012 [facility] [address] [id number] [place] [address] Apr, [facility] [address] [id number] [place] [address] Apr, [facility] [address] [id number] [place] [address] Apr, [facility] [place] [facility] [address] [id number] [place] [address] Apr, [facility] [address] [id number] [place] [address] Apr, [facility] [address] [id number] [place] [address] Apr, [facility] [address] [id number] [place] [address] Mar, [facility] [address] [id number] [place] [address] Mar, [facility] [address] [id number] [place] [address] Mar, [facility] [address] [facility] [id number] [place] [address] Mar, [facility] [address] [id number] [place] [address] Feb, [facility] [place] [facility] [address] [id number], [place] [address] Feb, [facility] [place] [facility] [address] [id number] [place] [address] Feb, [facility] [place] [facility] [address] [id number] [place] [address] Feb, [facility] [place] [facility] [address] [id number], [place] [address] Feb, [facility] [place] [facility] [address] [id number] [place] [address] Feb, [facility] [place] [facility] [address] [id number] [place] [address] Feb, [facility] [place] [facility] [address] [id number] [place] [address] Feb, [facility] [place] [facility] [address] [id number] [place] [address] Feb, [facility] [place] [facility] [address] [id number] [place] [address] Feb, [facility] [place] [facility] [address] [id number] [place] [address] Feb, [facility] [place] [facility] [address] [id number] [place] [address] Feb, [facility] [place] [facility] [address] [id number] [place] [address] Feb, [facility] [place] [facility] [address] [id number] [place] [address] Feb, [facility] [place] [facility] [address] [id number] [place] [address] Feb, [facility] [place] [facility] [address] [id number] [place] [address] Feb, [facility] [place] [facility] [address] [id number] [place] [address] Jan, [facility] [place] [facility] [address] [id number] [place] [address] Jan, [facility] [place] [facility] [address] [id number] [place] [address] Jan, [facility] [place] [facility] [address] [id number] [place] [address] Jan, [facility] [place] [facility] [address] [id number] [place] [address] 30 Jan, 2012 [facility] [place] [facility] [address] [id number] [place] [address] Jan, [facility] [place] [facility] [address] [id number] [place] [address] Jan, [facility] [place] [facility] [address] [id number] [place] [address] Jan, [facility] [place] [facility] [address] [id number] [place] [address] 16 Jan, 2012 [facility] [place] [facility] [address] [id number] [place] [address] Jan, [facility] [place] [facility] [address] [id number] [place] [address] 15 Jan, 2012 [facility] [place] [facility] [address] [id number] [place] [address] Jan, [facility] [place] [facility] [address] [id number], [place] [address] 26 Sep2011 [facility] [place] [facility] [address] [id number] [place] [address] 26 Sep2011 [facility] [place] [facility] [address] [id number] [place] [address] 24 Sep2011 [facility] [place] [facility] [address] [id number], [place] [address] 23 Sep, 2011 [facility] [place] [facility] [address] [id number], [place] [address] 22 Sep, 2011 [facility] [place] [facility] [address] [id number] [place] [address] 21 Sep2011 [facility] [place] [facility] [address] [facility] [id number], [place] [address] 20 Sep, 2011 [facility] [place] [facility] [address] [id number], [place] [address] 20 Dec, 2011 [facility] [place] [facility] [address] [id number] [place] [address] 07 Sep, 2011 [facility] [address] [id number] [place] [address] 06 Sep, 2011 [facility] [place] [facility] [address] [id number] [place] [address] 06 Dec, 2011 [facility] [place] [facility] [address] [id number] [place] [address] 05 Dec, 2011 [facility] [place] [facility] [address] [id number] [place] [address] 23 Nov, 2011 [facility] [place] [facility] [address] [id number] [place] [address] 17 Nov, 2011 [facility] [place] [facility] [address] [id number] [place] [address] 13 Nov, 2011 [facility] [address] [id number] [place] [address] Nov, [facility] [address] [id number] [place] [address] 08 Nov, 2011 [facility] [place] [facility] [address] [id number] [place] [address] Nov, [facility] [address] [id number] [place] [address] Nov, [facility] [place] [facility] [address] [id number] [place] [address] Nov, [facility] [place] [facility] [address] [id number] [place] [address] Oct, [facility] [place] [facility] [address] [id number] [place] [address] Oct, [facility] [place] [facility] [address] [id number] [place] [address] Oct, [facility] [place] [facility] [address] [id number] [place] [address] Oct, [facility] [place] [facility] [address] [id number] [place] [address] Oct, [facility] [place] [facility] [address] [id number] [place] [address] Oct, [facility] [place] [facility] [address] [id number] [place] [address] Oct, [facility] [place] [facility] [address] [id number] [place] [address] Sep, [facility] [place] [facility] [address] [id number] [place] [address] Sep, [facility] [place] [facility] [address] [id number] [place] [address] August, [facility] [place] [facility] [address] [id number] [place] [address] August, [facility] [place] [facility] [address] [id number] [place] [address] August, [facility] [place] [facility] [address] [id number] [place] [address] August, [facility] [place] [facility] [address] [id number] [place] [address] Jul, [facility] [place] [facility] [address] [id number] [place] [address] Jul, [facility] [place] [facility] [address] [id number] [place] [address] Jul, [facility] [place] [facility] [address] [id number] [place] [address] Jul, [facility] [place] [facility] [address] [id number] [place] [address] Jul, [facility] [place] [facility] [address] [id number] [place] [address] Jul, [facility] [place] [facility] [address] [id number], [place] [address] Jul, [facility] [address] [id number] [place] [address] Jul, [facility] [place] [facility] [address] [id number] [place] [address] Jul, [facility] [address] [id number] [place] [address] 23 Jun, 2011 [facility] [place] [facility] [address] [id number] [place] [address] 19 Jun, 2011 [facility] [address] [id number] [place] [address] 15 Jun, 2011 [facility] [address] [id number] [place] [address] 14 Jun, 2011 [facility] [address] [id number] [address] Jun, [facility] [place] [facility] [address] [facility] [id number] [place] [address] Jun, [facility] [address] [facility] [id number] [place] [address] Jun, [facility] [address] [facility] [id number] [place] [address] May, [facility] [place] [facility] [address] [id number] [place] [address] 24 May, 2011 [facility] [place] [facility] [address] [id number], [place] [address] 16 May, 2011 [facility] [place] [facility] [address] [id number] [place] [address] May, [facility] [place] [facility] [address] [id number] [place] [address] May, [facility] [place] [facility] [address] [facility] [id number], [place] [address] Apr, [facility] [place] [facility] [address] [id number] [place] [address] Apr, [facility] [place] [facility] [address] [id number] [place] [address] Apr, [facility] [place] [facility] [address] [id number] [place] [address] Apr, [facility] [place] [facility] [address] [id number] [place] [address] Apr, [facility] [place] [facility] [address] [id number] [place] [address] Mar, [facility] [place] [facility] [address] [id number] [place] [address] Mar, [facility] [place] [facility] [address] [id number] [place] [address] Mar, [facility] [place] [facility] [address] [id number] [place] [address] Mar, [facility] [place] [facility] [address] [id number] [place] [address] Mar, [facility] [place] [facility] [address] [id number] [place] [address] Mar, [facility] [place] [facility] [address] [id number] [place] [address] Mar, [facility] [place] [facility] [address] [id number] [place] [address] Feb, [facility] [place] [facility] [address] [id number] [place] [address] Feb, [facility] [place] [facility] [address] [id number] [place] [address] Feb, [facility] [place] [facility] [address] [id number] [place] [address] Feb, [facility] [place] [facility] [address] [id number], [place] [address] Jan, [facility] [address] [id number] [place] [address] Jan, [facility] [address] [id number], [place] [address] Jan, [facility] [address] [facility] [id number], [place] [address] Jan, [facility] [address] [id number], [place] [address] Nov, [facility] [address] [id number] [place] [address] Mar, [facility] [address] [facility] [id number], [place] [address] Mar, [facility] [address] [facility] [id number], [place] [address] Mar, [facility] [address] [facility] [id number], [place] [address] Mar, [facility] [address] [facility] [id number], [place] [address] Mar, [facility] [address] [facility] [id number], [place] [address] Mar, [facility] [address] [facility] [id number], [place] [address] Feb, [facility] [address] [facility] [id number], [place] [address] Feb, [facility] [address] [facility] [id number], [place] [address] Jan, [facility] [address] [facility] [id number], [place] [address] Jan, [facility] [address] [facility] [id number], [place] [address] Jan, IMMUNIZATIONS No Known Immunizations SOCIAL HISTORY Never Assessed REASON FOR VISIT EMR-[facility] PLAN OF CARE VITAL SIGNS MEDICATIONS Unknown [...] & 2007 Surgical History Bladder surgery [facility] 03/2016 Surgical History Neurotransmitter placed 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
--- OUTSIDE RECORDS SUMMARY | 2018-10-26 12:23 | XMS REPORT ---
Author Author Migration, Doctor Organization [facility] Address Unknown Phone Unavailable Care Team Providers Care Physician'S Assistant Name Role Phone Migration, Doctor Unavailable Unavailable PROBLEMS Type Condition ICD9-CM Code [id number] Code Onset Dates Condition Status SNOMED Code Problem Restless leg G25.81 Active 39906320 Problem Insomnia G47.00 Active 171543828 Problem Hypothyroid E03.9 Active 85873130 Problem Palpitations R00.2 Active 22705657 Problem Asthma J45.909 Active 144064777 Problem Chronic kidney disease, stage 4 (severe) N18.4 Active 260373794 Problem Depressed F32.9 Active 63279885 Problem Bipolar disorder, current episode manic without psychotic features F31.10 Active 042226848 Problem Generalized anxiety disorder F41.1 Active 58718249 Problem Anemia in chronic kidney disease D63.1 Active 858540473478982 Problem Low back pain M54.5 Active 532401725 Problem Coronary artery disease involving nez perce coronary artery of nez perce heart, angina presence unspecified I25.10 Active 6993160245688 Problem Dysthymic disorder F34.1 Active 37779749 Problem Other seasonal allergic rhinitis J30.2 Active 774785651 Problem History of anemia Z86.2 Active 378863976 Problem Fibromyalgia M79.7 Active 505964691 Problem Hypokalemia E87.6 Active 29838465 Problem Vitamin D deficiency E55.9 Active 76982907 Problem Mixed stress and urge urinary incontinence N39.46 Active 406525081 Problem Chronic kidney disease, unspecified N18.9 Active 385525769 Problem Abnormal chest CT R93.8 Active 898524695 Problem Essential (primary) hypertension I10 Active 40041749 Problem Long-term use of high-risk medication Z79.899 Active 319379032 Problem Degenerative tear of medial meniscus of left knee M23.204 Active 964300630 Problem Primary osteoarthritis of left knee M17.12 Active 122182182 Problem Mood disorder F39 Active 24543862 Problem Chronic pain syndrome G89.4 Active 949465622 Problem History of colon polyps Z86.010 Active 629665069 Problem Perimenopausal vasomotor symptoms N95.1 Active 855686274 Problem Functional diarrhea K59.1 Active 83728264 Problem Asthma with acute exacerbation in adult J45.901 Active 909192428 Problem Stage 3 chronic kidney disease N18.3 Active 953606132 Problem Body mass index (BMI) of 40.0-44.9 in adult Z68.41 Active 351662729 Problem Seasonal allergic rhinitis due to pollen J30.1 Active 41496456 Problem Restless leg syndrome G25.81 Active 05626406 ALLERGIES No Information ENCOUNTERS Encounter Location Date Diagnosis [facility] [id number] [address] Sep, [facility] [id number] [place] [address] August, [facility] [id number] [place] [address] August, [facility] [id number] [place] [address] August, [facility] [id number] [place] [address] Jul, Urinary tract infection without hematuria, site unspecified N39.0 [facility] [id number] [place] [address] Jul, [facility] [id number] [place] [address] Jul, [facility] [id number] [place] [address] Jul, Fibromyalgia M79.7 [facility] [id number] [place] [address] Jul, Acute pain of right shoulder M25.511 [facility] [id number] [place] [address] Jul, Acute pain of right shoulder M25.511 and Morbid obesity E66.01 [facility] [id number] [place] [address] Jun, [facility] [id number] [place] [address] Jun, Generalized anxiety disorder F41.1 and Major depressive disorder, recurrent episode with anxious distress F33.9 [facility] [id number] [place] [address] Jun, [place] [address] [address] Jun, Fibromyalgia M79.7 [facility] [address] [address] Jun, Acute pain of right shoulder M25.511 ; Acute pain of right hip M25.551 and Morbid obesity E66.01 [place] [address] [address] 11 May, 2018 Burning with urination R30.0 ; Vaginal discharge N89.8 ; Chronic kidney disease, stage 4 (severe) N18.4 ; Body mass index (BMI) of 40.0-44.9 in adult Z68.41 and Morbid obesity E66.01 [facility] [id number] [place] [address] 07 May, 2018 Fibromyalgia M79.7 [facility] [id number] [place] [address] May, Generalized anxiety disorder F41.1 and Major depressive disorder, recurrent episode with anxious distress F33.9 [facility] [id number] [place] [address] Apr, [facility] [id number] [place] [address] Apr, Fibromyalgia M79.7 [facility] [id number] [place] [address] Mar, Acute UTI N39.0 and Dysuria R30.0 [facility] [id number] [place] [address] Mar, Fibromyalgia M79.7 [facility] [id number] [place] [address] 15 Feb, 2018 [facility] [id number] [place] [address] Feb, [facility] [id number] [place] [address] Feb, [facility] [id number] [place] [address] Feb, Fibromyalgia M79.7 [facility] [id number] [place] [address] 08 Feb, 2018 Complicated UTI (urinary tract infection) N39.0 [facility] [id number] [place] [address] Feb, [facility] [id number] [place] [address] Jan, Generalized anxiety disorder F41.1 and Major depressive disorder, recurrent episode with anxious distress F33.9 [facility] [id number] [place] [address] Jan, Acute conjunctivitis of left eye, unspecified acute conjunctivitis type H10.32 [facility] [id number] [place] [address] Jan, [facility] [id number] [place] [address] Jan, Acute non-recurrent maxillary sinusitis J01.00 ; Dysuria R30.0 ; Perimenopausal vasomotor symptoms N95.1 and Fibromyalgia M79.7 [facility] [id number] [place] [address] Dec, Vitamin D deficiency E55.9 [facility] [id number] [place] [address] Dec, Vitamin D deficiency E55.9 [place] [address] [address] 24 Dec, 2017 Vitamin D deficiency E55.9 [facility] [id number] [place] [address] Dec, [place] [address] [address] Dec, Fibromyalgia M79.7 [facility] [address] [address] Nov, [place] [address] [address] Nov, [place] [address] [address] Nov, [place] [address] [address] Nov, Fibromyalgia M79.7 ; Vision changes H53.9 ; Chest wall pain R07.89 and Chronic pain syndrome G89.4 [facility] [id number] [place] [address] Nov, [facility] [id number] [place] [address] Nov, Rash of hands R21 [place] [address] [address] Nov, Generalized anxiety disorder F41.1 and Major depressive disorder, recurrent episode with anxious distress F33.9 [facility] [address] [address] Nov, Fibromyalgia M79.7 [facility] [id number] [place] [address] Nov, Complicated UTI (urinary tract infection) N39.0 [facility] [id number] [place] [address] Oct, [facility] [id number] [place] [address] Oct, Generalized anxiety disorder F41.1 and Major depressive disorder, recurrent episode with anxious distress F33.9 [facility] [id number] [place] [address] Oct, [facility] [id number] [place] [address] Oct, Fibromyalgia M79.7 [facility] [address] [address] Sep, Restless leg syndrome G25.81 and Restless leg G25.81 [facility] [id number] [place] [address] Sep, [facility] [id number] [place] [address] Sep, Seasonal allergic rhinitis due to pollen J30.1 ; Screening for breast cancer Z12.31 ; Chest pain at rest R07.9 ; Restless leg syndrome G25.81 ; Essential (primary) hypertension I10 and Depressed F32.9 [facility] [id number] [place] [address] August, Fibromyalgia M79.7 [facility] [id number] [place] [address] August, [facility] [id number] [place] [address] August, [place] [address] [address] August, Abnormal chest [address] R93.8 [facility] [id number] [place] [address] August, Generalized anxiety disorder F41.1 and Major depressive disorder, recurrent episode with anxious distress F33.9 [facility] [id number] [place] [address] August, Abnormal chest [address] R93.8 [facility] [id number] [place] [address] Jul, [facility] [id number] [place] [address] Jul, Chronic kidney disease, stage 4 (severe) N18.4 [facility] [id number] [place] [address] Jul, [place] [address] [address] Jul, Restless leg G25.81 ; Mixed stress and urge urinary incontinence N39.46 and Fibromyalgia M79.7 [facility] [id number] [place] [address] Jul, Chronic kidney disease, stage 4 (severe) N18.4 [facility] [id number] [place] [address] Jun, Orthostatic hypotension I95.1 ; Chronic kidney disease, stage 4 (severe) N18.4 ; Chest wall discomfort R07.89 and Body mass index (BMI) of 40.0-44.9 in adult Z68.41 [facility] [id number] [place] [address] Jun, [facility] [id number] [place] [address] Jun, Orthostatic hypotension I95.1 [facility] [id number] [place] [address] Jun, [facility] [id number] [place] [address] Jun, Orthostatic hypotension I95.1 ; Dysuria R30.0 and Acute cystitis without hematuria N30.00 [place] [address] [address] Jun, [facility] [id number] [place] [address] Jun, Chronic kidney disease, stage 4 (severe) N18.4 [facility] [id number] [place] [address] Jun, Fibromyalgia M79.7 [facility] [id number] [place] [address] Jun, [facility] [id number] [place] [address] Jun, [facility] [id number] [place] [address] May, Abnormal chest [address] R93.8 and Stage 3 chronic kidney disease N18.3 [facility] [id number] [place] [address] May, Chronic kidney disease, stage 4 (severe) N18.4 [facility] [id number] [place] [address] May, Chronic kidney disease, stage 4 (severe) N18.4 [facility] [id number] [place] [address] May, Ab[address] R93.8 [facility] [id number] [place] [address] May, [facility] [id number] [place] [address] May, [facility] [id number] [place] [address] May, Generalized anxiety disorder F41.1 and Major depressive disorder, recurrent episode with anxious distress F33.9 [facility] [id number] [place] [address] May, Mood disorder F39 [facility] [id number] [place] [address] Apr, [facility] [address] [place] [address] Apr, Infected skin lesion L08.9 and Muscle strain of right shoulder region, initial encounter S46.911A [facility] [id number] [place] [address] Apr, Generalized anxiety disorder F41.1 and Major depressive disorder, recurrent episode with anxious distress F33.9 [facility] [id number] [place] [address] Apr, [facility] [address] [place] [address] Apr, Recent urinary tract infection Z87.440 and Hypothyroid E03.9 [facility] [address] [place] [address] Apr, Generalized anxiety disorder F41.1 and Major depressive disorder, recurrent episode with anxious distress F33.9 [facility] [id number] [place] [address] Apr, Recent urinary tract infection Z87.440 [facility] [address] [place] [address] Mar, [facility] [address] [place] [address] Mar, Dysuria R30.0 ; Acute cystitis without hematuria N30.00 and BMI 40.0- 44.9, adult Z68.41 [facility] [address] [place] [address] Mar, [facility] [id number] [place] [address] Mar, [facility] [id number] [place] [address] Mar, Generalized anxiety disorder F41.1 and Major depressive disorder, recurrent episode with anxious distress F33.9 [facility] [id number] [place] [address] Feb, Conjunctivitis, bacterial H10.9 [facility] [address] [address] Feb, [facility] [address] [address] Feb, Conjunctivitis, bacterial H10.9 [address] [address] [address] Feb, [facility] [id number] [place] [address] Feb, Dysuria R30.0 ; Acute cystitis N30.00 and BMI 40.0-44.9, adult Z68.41 [facility] [id number] [place] [address] Feb, [place] [address] [address] Feb, Generalized anxiety disorder F41.1 and Major depressive disorder, recurrent episode with anxious distress F33.9 [facility] [id number] [place] [address] Feb, Mood disorder F39 and BMI 40.0-44.9, adult Z68.41 [address] [place] [id number] [place] [address] Jan, [address] [address] [address] Jan, [place] [address] [address] Jan, Hypothyroid E03.9 [address] [address] [address] Jan, [facility] [id number] [place] [address] Jan, Chronic kidney disease, unspecified N18.9 ; Hypokalemia E87.6 ; Essential (primary) hypertension I10 ; Fibromyalgia M79.7 ; Coronary artery disease involving nez perce coronary artery of nez perce heart, angina presence unspecified I25.10 ; Hypothyroid E03.9 and Encounter for immunization Z23 [facility] [id number] [place] [address] Jan, Hypothyroid E03.9 [place] [address] [address] Jan, [facility] [id number] [place] [address] Dec, Vitamin D deficiency E55.9 [facility] [id number] [place] [address] 28 Dec, 2016 Primary osteoarthritis of left knee M17.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 [facility] [id number] [place] [address] 19 Dec, 2016 Fibromyalgia M79.7 [facility] [id number] [place] [address] 18 Dec, 2016 Mood disorder F39 [facility] [id number] [place] [address] 13 Dec, 2016 [facility] [place] [id number] [place] [address] 13 Dec, 2016 Generalized anxiety disorder F41.1 and Major depressive disorder, recurrent episode with anxious distress F33.9 [facility] [place] [id number] [place] [address] 11 Dec, 2016 [facility] [id number] [place] [address] 08 Dec, 2016 Streptococcal meningitis G00.2 [facility] [address] [address] 07 Dec, 2016 Streptococcal meningitis G00.2 [facility] [address] [address] 07 Dec, 2016 [facility] [address] [address] Dec, [facility] [id number] [place] [address] Dec, Streptococcal meningitis G00.2 [facility] [id number] [place] [address] Dec, Major depressive disorder, recurrent episode with anxious distress F33.9 [facility] [address], [place] [address] Nov, Fever, unspecified fever cause R50.9 [facility] [address], [place] [address] Nov, [facility] [id number] [place] [address] Nov, Hypothyroid E03.9 [facility] [address] [place] [address] Nov, Generalized anxiety disorder F41.1 and Major depressive disorder, recurrent episode with anxious distress F33.9 [facility] [address] [address] Nov, [facility] [address] [address] Oct, Dental examination Z01.20 [facility] [address], [place] [address] Oct, Generalized anxiety disorder F41.1 and Major depressive disorder, recurrent episode with anxious distress F33.9 [facility] [id number] [place] [address] Oct, Chronic kidney disease, stage 4 (severe) N18.4 [place] [id number] [place] [address] Oct, [facility] [place] [id number] [place] [address] Oct, Fibromyalgia M79.7 [facility] [place] [id number] [place] [address] Oct, [facility] [id number] [place] [address] Oct, Generalized anxiety disorder F41.1 ; Major depressive disorder, recurrent episode with anxious distress F33.9 and Bipolar disorder, current episode manic without psychotic features F31.10 [facility] [place] [id number] [place] [address] Sep, [facility] [place] [id number] [place] [address] Sep, [facility] [place] [id number] [place] [address] Sep, Vitamin D deficiency E55.9 [place] [id number] [place] [address] Sep, Vitamin D deficiency E55.9 [facility] [address] [place] [address] Sep, [place] [id number] [place] [address] Sep, Chronic kidney disease, stage 4 (severe) N18.4 ; Hypothyroid E03.9 ; Restless leg G25.81 ; Fibromyalgia M79.7 ; Essential (primary) hypertension I10 ; Vitamin D deficiency E55.9 ; Dyspepsia R10.13 ; Anemia in chronic kidney disease D63.1 ; Chronic kidney disease, unspecified N18.9 ; Coronary artery disease involving nez perce coronary artery of nez perce heart, angina presence unspecified I25.10 ; Screening breast examination Z12.39 and Low back pain M54.5 [place] [id number] [place] [address] August, Generalized anxiety disorder F41.1 and Major depressive disorder, recurrent episode with anxious distress F33.9 [facility] [place] [id number] [place] [address] August, Generalized anxiety disorder F41.1 and Major depressive disorder, recurrent episode with anxious distress F33.9 [facility] [place] [id number] [place] [address] August, Fibromyalgia M79.7 [place] [address] [address] Jul, Generalized anxiety disorder F41.1 and Major depressive disorder, recurrent episode with anxious distress F33.9 [facility] [place] [id number] [place] [address] Jul, Fibromyalgia M79.7 [facility] [id number] [place] [id number] Jul, Generalized anxiety disorder F41.1 [place] [address] [place] [id number] [place] [id number] May, [place] [address] [place] [id number] [place] [id number] May, Hypothyroid E03.9 [place] [address] [place] [id number] [place] [id number] May, Chronic kidney disease, stage 4 (severe) N18.4 ; Hypothyroid E03.9 ; Restless leg G25.81 ; Fibromyalgia M79.7 ; Essential (primary) hypertension I10 ; Vitamin D deficiency E55.9 ; Dyspepsia R10.13 ; Acute non-recurrent maxillary sinusitis J01.00 ; Anemia in chronic kidney disease D63.1 ; Chronic kidney disease, unspecified N18.9 and Coronary artery disease involving nez perce coronary artery of nez perce heart, angina presence unspecified I25.10 [facility] [id number] [address] May, Vitamin D deficiency, unspecified E55.9 [facility] [id number] [place] [address] May, Generalized anxiety disorder F41.1 and Major depressive disorder, recurrent episode with anxious distress F33.9 [facility] [address] [place] [id number] [place] [id number] Apr, Pain in right knee M25.561 and Pain in left knee M25.562 [place] [address] [address] [place] [id number] [place] [id number] Apr, [facility] [id number] [place] [id number] Apr, [facility] [address] [place] [id number] [place] [id number] Apr, [facility] [id number] [place] [address] Mar, Generalized anxiety disorder F41.1 and Major depressive disorder, recurrent episode with anxious distress F33.9 [facility] [place] [facility] [id number] [place] [address] Mar, Generalized anxiety disorder F41.1 and Major depressive disorder, recurrent episode with anxious distress F33.9 [facility] [place] [facility] [id number] [place] [address] Mar, [facility] [place] [facility] [id number] [place] [address] Mar, [facility] [place] [facility] [id number] [place] [address] Mar, [facility] [place] [facility] [id number] [place] [address] Mar, Asthma J45.909 and Fibromyalgia M79.7 [facility] [place] [facility] [id number] [place] [address] Mar, Chronic kidney disease, stage 4 (severe) N18.4 ; Vitamin D deficiency E55.9 and Essential (primary) hypertension I10 [facility] [place] [facility] [id number] [place] [address] Feb, [place] [id number] [place] [address] Feb, Dysuria R30.0 ; Mixed stress and urge urinary incontinence N39.46 ; Fibromyalgia M79.7 and Chronic kidney disease, stage IV (severe) N18.4 [place] [address] [address] Feb, Chronic kidney disease, stage 4 (severe) N18.4 [place] [id number] [place] [address] Feb, Chronic kidney disease, stage 4 (severe) N18.4 [place] [id number] [place] [address] Feb, [place] [id number] [place] [address] Feb, Vitamin D deficiency, unspecified E55.9 [facility] [place] [facility] [id number] [place] [address] Jan, [facility] [place] [facility] [id number] [place] [address] Jan, [facility] [place] [facility] [id number] [place] [address] Dec, [facility] [place] [facility] [id number] [place] [address] Dec, Chronic kidney disease, stage 4 (severe) N18.4 [facility] [facility] [id number] [place] [address] Dec, Dysthymic disorder F34.1 and Generalized anxiety disorder F41.1 [facility] [facility] [id number] [place] [address] Dec, [facility] [facility] [address] [address] Dec, [place] [address] [address] Dec, Dysthymic disorder F34.1 and Generalized anxiety disorder F41.1 [place] [address] [address] Dec, Dysuria R30.0 ; Chronic kidney disease, stage 4 (severe) N18.4 ; Hypertension I10 ; Dyspepsia R10.13 ; Yeast dermatitis B37.2 ; Palpitations R00.2 ; Hypothyroid E03.9 ; Functional diarrhea K59.1 and Other seasonal allergic rhinitis J30.2 [facility] [address] [address] Dec, [facility] [address] [address] Nov, Dysuria R30.0 and Stress incontinence N39.3 [place] [address] [address] Nov, [place] [id number] [place] [address] Nov, [place] [address] [address] Nov, Osteoarthritis of knees, bilateral M17.0 [place] [address] [address] Nov, Dysthymic disorder F34.1 and Generalized anxiety disorder F41.1 [place] [id number] [place] [address] Nov, [place] [address] [address] Nov, [facility] [facility] [id number] [place] [address] Nov, Urgency of urination R39.15 [facility] [facility] [id number] [place] [address] Nov, [place] [id number] [place] [address] Nov, Chronic kidney disease, stage 4 (severe) N18.4 [place] [id number] [place] [address] Oct, Hypertension I10 ; Coronary artery disease involving nez perce coronary artery of nez perce heart, angina presence unspecified I25.10 ; Palpitations R00.2 ; Hypothyroid E03.9 ; Right foot pain M79.671 ; Functional diarrhea K59.1 and Other seasonal allergic rhinitis J30.2 [place] [id number] [place] [address] Oct, Dysthymic disorder F34.1 and Generalized anxiety disorder F41.1 [place] [id number] [place] [address] Sep, [place] [id number] [place] [address] Sep, [place] [id number] [place] [address] Sep, [facility] [id number] [place] [address] Sep, [place] [id number] [place] [address] Sep, [place] [id number] [place] [address] Sep, Dysthymic disorder F34.1 and Generalized anxiety disorder F41.1 [place] [id number] [place] [address] 16 Sep, 2015 Asthma with acute exacerbation in adult J45.901 ; Dysuria R30.0 ; Chronic kidney disease, stage 4 (severe) N18.4 and History of anemia Z86.2 [place] [id number] [place] [address] 2015 Generalized anxiety disorder F41.1 and Dysthymic disorder F34.1 [place] [address] [address] August, Screening breast examination Z12.39 and Acute recurrent maxillary sinusitis J01.01 [place] [address] [address] August, Osteoarthritis of knees, bilateral M17.0 [place] [id number] [place] [address] August, Chronic kidney disease, stage 4 (severe) N18.4 ; Acute non-recurrent maxillary sinusitis J01.00 ; Urinary problem R39.89 ; Bowel habit changes R19.4 ; Functional diarrhea K59.1 and History of colon polyps Z86.010 [place] [id number] [place] [address] Jul, Dysthymic disorder F34.1 and Generalized anxiety disorder F41.1 [place] [id number] [place] [address] Jul, [address] [address] [address] Jul, Dysthymic disorder F34.1 ; Generalized anxiety disorder F41.1 and FPC use of drug Z79.899 [place] [id number] [place] [address] Jul, [place] [id number] [place] [address] Jun, [address] [address] [address] Jun, [facility] [id number] [place] [address] May, [place] [id number] [place] [address] May, Dysthymic disorder F34.1 and Generalized anxiety disorder F41.1 [place] [id number] [place] [address] Apr, Kidney disease N28.9 [place] [id number] [place] [address] Apr, Generalized anxiety disorder F41.1 and Dysthymic disorder F34.1 [place] [id number] [place] [address] Apr, Chronic kidney disease, stage 4 (severe) N18.4 [place] [id number] [place] [address] Apr, Generalized anxiety disorder F41.1 ; Major depression, recurrent F33.9 and Sleep disturbance G47.9 [place] [id number] [place] [address] Mar, Generalized anxiety disorder F41.1 and Dysthymic disorder F34.1 [place] [id number] [place] [address] Mar, Generalized anxiety disorder F41.1 ; Dysthymic disorder F34.1 and Insomnia G47.00 [place] [id number] [place] [address] Mar, [place] [id number] [place] [address] Mar, [place] [id number] [place] [address] Mar, Osteoarthritis of knees, bilateral M17.0 [place] [id number] [place] [address] Mar, Hypertension I10 ; Hypothyroid E03.9 ; Dysthymic disorder F34.1 ; Chronic kidney disease, stage 4 (severe) N18.4 and Nausea & vomiting R11.2 [place] [id number] [place] [address] Mar, Generalized anxiety disorder F41.1 ; Dysthymic disorder F34.1 and Insomnia G47.[address] [address] Mar, Dehydration E86.0 ; Chronic kidney disease, stage 4 (severe) N18.4 and Nausea & vomiting R11.2 [facility] [id number] [place] [address] 08 Mar, 2015 Gastroenteritis K52.[address] [address] Mar, [address] [address] Mar, [address] [address] Feb, Dysthymic disorder F34.1 and Generalized anxiety disorder F41.1 [id number] [place] [address] Jan, UTI (urinary tract infection) N39.0 ; Asthma J45.909 ; Coronary artery disease involving nez perce coronary artery of nez perce heart, angina presence unspecified I25.10 ; Hypertension I10 ; Hypothyroid E03.9 ; Vitamin D deficiency E55.9 ; Insomnia G47.00 ; Palpitations R00.2 ; Depressed F32.9 ; Restless leg G25.81 and Anxiety F41.9 [id number] [place] [address] Jan, Dysthymic disorder F34.1 and Generalized anxiety disorder F41.[id number] [place] [address] Jan, [place] [id number] [place] [address] Dec, [place] [id number] [place] [address] 28 Dec, 2014 Alkalosis 276.3 ; Chronic kidney disease, Stage IV (severe) 585.4 ; Hyperpotassemia 276.7 ; Secondary hyperparathyroidism, renal 588.81 ; Proteinuria 791.0 ; Unspecified vitamin D deficiency 268.9 ; Anemia in chronic kidney disease 285.21 ; Other and unspecified hyperlipidemia 272.4 ; Hypertension, essential, benign 401.1 and Chronic kidney disease (CKD), stage III (moderate) 585.3 [place] [id number] [place] [address] Dec, [id number] [place] [address] Dec, Depressive disorder, not elsewhere classified 311 and Generalized anxiety disorder 300.02 [place] [id number] [place] [address] Dec, [place] [id number] [place] [address] Dec, [place] [id number] [place] [address] Nov, Depressive disorder, not elsewhere classified 311 and Generalized anxiety disorder 300.02 [id number] [place] [address] Nov, Arthritis of both knees 716.[address] [address] 07 Nov, 2014 PAF (paroxysmal atrial fibrillation) 427.31 ; CAD (coronary artery disease) 414.00 ; Chest pain 786.50 and Chronic kidney disease (CKD) stage G4/A1, severely decreased glomerular filtration rate (GFR) between 15-29 mL/min/1.73 square meter and albuminuria creatinine ratio less than 30 mg/g 585.4 [id number] [place] [address] Oct, Coronary atherosclerosis of unspecified type of vessel, nez perce or graft 414.00 ; Chronic kidney disease, Stage IV (severe) 585.4 ; Hypertension 401.9 and Edema 782.[address] [address] Oct, Depressive disorder, not elsewhere classified 311 and Generalized anxiety disorder 300.[address] [address] Oct, Depressive disorder, not elsewhere classified 311 and Generalized anxiety disorder 300.02 [id number] [place] [address] Oct, [address] [address] Oct, [id number] [place] [address] Sep, [id number] [place] [address] Sep, Chronic kidney disease, Stage IV (severe) 585.4 [id number] [place] [address] Sep, [id number] [place] [address] Sep, Coronary atherosclerosis of unspecified type of vessel, nez perce or graft 414.00 ; Hypertension 401.9 ; Edema 782.3 and Hypothyroidism 244.9 [id number] [place] [address] Sep, Coronary atherosclerosis of unspecified type of vessel, nez perce or graft 414.00 ; Hypertension 401.9 ; Fibromyalgia 729.1 ; Edema 782.3 ; Hypothyroidism 244.9 and Anemia 285.9 [id number] [address] Sep, Anxiety disorder, unspecified 300.00 and Depressive disorder, not elsewhere classified 311 [facility] [place] [facility] [id number] [address] Sep, [facility] [place] [facility] [id number] [place] [address] August, Generalized anxiety disorder 300.02 [facility] [facility] [id number] [place] [address] August, Closed fracture of lateral malleolus 824.2 [facility] [facility] [id number] [place] [address] Jul, [facility] [facility] [id number] [place] [address] Jul, [facility] [facility] [id number] [place] [address] Jun, [facility] [facility] [address] [address] Jun, [facility] [facility] [address] [address] Jun, [facility] [facility] [address] [address] Jun, [facility] [facility] [address] [address] Jun, [facility] [facility] [address] [address] Jun, [facility] [facility] [address] [address] May, [facility] [facility] [address] [address] May, [facility] [facility] [address] [address] b, 2014 [facility] [place] [facility] [address] [id number] [place] [address] 18 May, 2014 [facility] [place] [facility] [address] [id number] [place] [address] 16 May, 2014 [facility] [place] [facility] [address] [facility] [id number] [place] [address] 16 May, 2014 [facility] [place] [facility] [address] [id number] [place] [address] 13 May, 2014 [facility] [place] [facility] [address] [id number] [place] [address] 13 May, 2014 [facility] [place] [facility] [address] [facility] [id number] [place] [address] 10 May, 2014 [facility] [place] [facility] [address] [facility] [id number] [place] [address] 10 May, 2014 [facility] [place] [facility] [address] [facility] [id number] [place] [address] Apr, [facility] [place] [facility] [address] [facility] [id number] [place] [address] Apr, [facility] [place] [facility] [address] [facility] [id number] [place] [address] Mar, [facility] [place] [facility] [address] [facility] [id number] [place] [address] Mar, [facility] [place] [facility] [address] [facility] [id number] [place] [address] Mar, [facility] [place] [facility] [address] [facility] [id number] [place] [address] Mar, [facility] [place] [facility] [address] [facility] [id number] [place] [address] 15 Mar, 2014 [facility] [place] [facility] [address] [facility] [id number] [place] [address] 15 Mar, 2014 [facility] [place] [facility] [address] [id number] [place] [address] Mar, [facility] [place] [facility] [address] [id number] [place] [address] Feb, [facility] [place] [facility] [address] [id number] [place] [address] Feb, [facility] [place] [facility] [address] [id number] [place] [address] Feb, [facility] [place] [facility] [address] [id number] [place] [address] Jan, [facility] [place] [facility] [address] [id number] [place] [address] Jan, [facility] [place] [facility] [address] [id number] [place] [address] Jan, [facility] [place] [facility] [address] [id number] [place] [address] Jan, [facility] [place] [facility] [address] [id number] [place] [address] Jan, [facility] [place] [facility] [address] [id number] [place] [address] Jan, [facility] [place] [facility] [address] [id number] [place] [address] Jan, [facility] [place] [facility] [address] [id number] [place] [address] Jan, [facility] [place] [facility] [address] [id number] [place] [address] Jan, [facility] [place] [facility] [address] [id number] [place] [address] Jan, [facility] [place] [facility] [address] [id number] [place] [address] Nov, [facility] [place] [facility] [address] [id number] [place] [address] Nov, [facility] [place] [facility] [address] [id number] [place] [address] Nov, [facility] [place] [facility] [address] [id number] [place] [address] Oct, [facility] [place] [facility] [address] [id number] [place] [address] Oct, [facility] [place] [facility] [address] [id number] [place] [address] Oct, [facility] [place] [facility] [address] [id number] [place] [address] Oct, [facility] [place] [facility] [address] [id number] [place] [address] Oct, [facility] [place] [facility] [address] [id number] [place] [address] Oct, [facility] [place] [facility] [address] [id number] [place] [address] Oct, [facility] [place] [facility] [address] [id number] [place] [address] Oct, [facility] [place] [facility] [address] [id number] [place] [address] Oct, [facility] [place] [facility] [address] [id number] [place] [address] Sep, [facility] [place] [facility] [address] [id number] [place] [address] Sep, [facility] [place] [facility] [address] [id number] [place] [address] Sep, [facility] [place] [facility] [address] [id number] [place] [address] Sep, [facility] [place] [facility] [address] [id number] [place] [address] Sep, [facility] [place] [facility] [address] [id number] [place] [address] Sep, [facility] [place] [facility] [address] [id number] [place] [address] Sep, [facility] [place] [facility] [address] [id number] [place] [address] Sep, [facility] [place] [facility] [address] [id number] [place] [address] Sep, [facility] [place] [facility] [address] [id number] [place] [address] August, [facility] [place] [facility] [address] [id number] [place] [address] August, [facility] [place] [facility] [address] [id number] [place] [address] August, [facility] [place] [facility] [address] [id number] [place] [address] August, [facility] [place] [facility] [address] [id number] [place] [address] August, [facility] [place] [facility] [address] [id number] [place] [address] August, [facility] [place] [facility] [address] [id number] [place] [address] Jul, [facility] [place] [facility] [address] [id number] [place] [address] Jul, [facility] [place] [facility] [address] [id number] [place] [address] Jul, [facility] [place] [facility] [address] [id number] [place] [address] Jul, [facility] [place] [facility] [address] [id number] [place] [address] Jul, [facility] [place] [facility] [address] [id number] [place] [address] Jul, [facility] [place] [facility] [address] [id number] [place] [address] Jun, [facility] [place] [facility] [address] [id number] [place] [address] Jun, [facility] [place] [facility] [address] [id number] [place] [address] May, [facility] [place] [facility] [address] [id number] [place] [address] May, [facility] [place] [facility] [address] [id number] [place] [address] May, [facility] [place] [facility] [address] [id number] [place] [address] May, [facility] [place] [facility] [address] [id number] [place] [address] Apr, [facility] [place] [facility] [address] [id number] [place] [address] Apr, [facility] [place] [facility] [address] [id number] [place] [address] Mar, [facility] [place] [facility] [address] [id number] [place] [address] Mar, [facility] [place] [facility] [address] [id number] [place] [address] Mar, [facility] [place] [facility] [address] [id number], [place] [address] Mar, [facility] [place] [facility] [address] [id number] [place] [address] Mar, [facility] [place] [facility] [address] [id number] [place] [address] Mar, [facility] [place] [facility] [address] [id number] [place] [address] Feb, [facility] [place] [facility] [address] [id number], [place] [address] Feb, [facility] [place] [facility] [address] [id number] [place] [address] Feb, [facility] [place] [facility] [address] [id number] [place] [address] Feb, [facility] [place] [facility] [address] [facility] [id number] [place] [address] Feb, [facility] [place] [facility] [address] [id number] [place] [address] Feb, [facility] [place] [facility] [address] [id number] [place] [address] Jan, [facility] [place] [facility] [address] [id number] [place] [address] Jan, [facility] [place] [facility] [address] [facility] [id number], [place] [address] Jan, [facility] [place] [facility] [address] [id number] [place] [address] Jan, [facility] [place] [facility] [address] [facility] [id number] [place] [address] Jan, [facility] [place] [facility] [address] [facility] [id number] [place] [address] Jan, [facility] [place] [facility] [address] [id number], [place] [address] Dec, [facility] [place] [facility] [address] [id number], [place] [address] Dec, [facility] [place] [facility] [address] [id number], [place] [address] Nov, [facility] [place] [facility] [address] [facility] [id number], [place] [address] Nov, [facility] [place] [facility] [address] [facility] [id number] [place] [address] Oct, [facility] [place] [facility] [address] [id number] [place] [address] Oct, [facility] [place] [facility] [address] [id number] [place] [address] Oct, [facility] [place] [facility] [address] [id number] [place] [address] Oct, [facility] [place] [facility] [address] [id number] [place] [address] Oct, [facility] [place] [facility] [address] [id number] [place] [address] Oct, [facility] [place] [facility] [address] [id number] [place] [address] Sep, [facility] [place] [facility] [address] [id number] [place] [address] Sep, [facility] [place] [facility] [address] [id number] [place] [address] Sep, [facility] [place] [facility] [address] [id number] [place] [address] Sep, [facility] [place] [facility] [address] [id number] [place] [address] August, [facility] [place] [facility] [address] [id number] [place] [address] August, [facility] [place] [facility] [address] [id number] [place] [address] August, [facility] [place] [facility] [address] [id number] [place] [address] August, [facility] [place] [facility] [address] [address] [id number] [place] [address] August, [facility] [place] [facility] [address] [id number] [place] [address] Jul, [facility] [place] [facility] [address] [id number] [place] [address] Jul, [facility] [place] [facility] [address] [id number] [place] [address] Jul, [facility] [place] [facility] [address] [id number] [place] [address] Jul, [facility] [place] [facility] [address] [id number] [place] [address] Jul, [facility] [place] [facility] [address] [id number] [place] [address] Jul, [facility] [place] [facility] [address] [id number] [place] [address] Jul, [facility] [place] [facility] [address] [id number] [place] [address] Jul, [facility] [place] [facility] [address] [id number] [place] [address] Jul, [facility] [place] [facility] [address] [id number] [place] [address] Jul, [facility] [address] [facility] [id number] [id number] Jun, [facility] [place] [facility] [address] [id number], [place] [address] Jun, [facility] [place] [facility] [address] [id number], [place] [address] Jun, [facility] [place] [facility] [address] [id number], [place] [address] Jun, [facility] [place] [facility] [address] [id number] [place] [address] Jun, [facility] [place] [facility] [address] [id number], [place] [address] May, [facility] [place] [facility] [address] [id number], [place] [address] May, [facility] [place] [facility] [address] [id number] [place] [address] 07 May, 2012 [facility] [address] [id number] [place] [address] Apr, [facility] [address] [id number] [place] [address] Apr, [facility] [address] [id number] [place] [address] Apr, [facility] [place] [facility] [address] [id number] [place] [address] Apr, [facility] [address] [id number] [place] [address] Apr, [facility] [address] [id number] [place] [address] Apr, [facility] [address] [id number] [place] [address] Mar, [facility] [address] [id number] [place] [address] Mar, [facility] [address] [id number] [place] [address] Mar, [facility] [address] [facility] [id number] [place] [address] Mar, [facility] [address] [id number] [place] [address] Feb, [facility] [place] [facility] [address] [id number], [place] [address] Feb, [facility] [place] [facility] [address] [id number] [place] [address] Feb, [facility] [place] [facility] [address] [id number] [place] [address] Feb, [facility] [place] [facility] [address] [id number], [place] [address] Feb, [facility] [place] [facility] [address] [id number] [place] [address] Feb, [facility] [place] [facility] [address] [id number] [place] [address] Feb, [facility] [place] [facility] [address] [id number] [place] [address] Feb, [facility] [place] [facility] [address] [id number] [place] [address] Feb, [facility] [place] [facility] [address] [id number] [place] [address] Feb, [facility] [place] [facility] [address] [id number] [place] [address] Feb, [facility] [place] [facility] [address] [id number] [place] [address] Feb, [facility] [place] [facility] [address] [id number] [place] [address] Feb, [facility] [place] [facility] [address] [id number] [place] [address] Feb, [facility] [place] [facility] [address] [id number] [place] [address] Feb, [facility] [place] [facility] [address] [id number] [place] [address] Feb, [facility] [place] [facility] [address] [id number] [place] [address] Jan, [facility] [place] [facility] [address] [id number] [place] [address] Jan, [facility] [place] [facility] [address] [id number] [place] [address] Jan, [facility] [place] [facility] [address] [id number] [place] [address] Jan, [facility] [place] [facility] [address] [id number] [place] [address] 30 Jan, 2012 [facility] [place] [facility] [address] [id number] [place] [address] Jan, [facility] [place] [facility] [address] [id number] [place] [address] Jan, [facility] [place] [facility] [address] [id number] [place] [address] Jan, [facility] [place] [facility] [address] [id number] [place] [address] 16 Jan, 2012 [facility] [place] [facility] [address] [id number] [place] [address] Jan, [facility] [place] [facility] [address] [id number] [place] [address] 15 Jan, 2012 [facility] [place] [facility] [address] [id number] [place] [address] Jan, [facility] [place] [facility] [address] [id number], [place] [address] 26 Sep2011 [facility] [place] [facility] [address] [id number] [place] [address] 26 Sep2011 [facility] [place] [facility] [address] [id number] [place] [address] 24 Sep2011 [facility] [place] [facility] [address] [id number], [place] [address] 23 Sep, 2011 [facility] [place] [facility] [address] [id number], [place] [address] 22 Sep, 2011 [facility] [place] [facility] [address] [id number] [place] [address] 21 Sep2011 [facility] [place] [facility] [address] [facility] [id number], [place] [address] 20 Sep, 2011 [facility] [place] [facility] [address] [id number], [place] [address] 20 Dec, 2011 [facility] [place] [facility] [address] [id number] [place] [address] 07 Sep, 2011 [facility] [address] [id number] [place] [address] 06 Sep, 2011 [facility] [place] [facility] [address] [id number] [place] [address] 06 Dec, 2011 [facility] [place] [facility] [address] [id number] [place] [address] 05 Dec, 2011 [facility] [place] [facility] [address] [id number] [place] [address] 23 Nov, 2011 [facility] [place] [facility] [address] [id number] [place] [address] 17 Nov, 2011 [facility] [place] [facility] [address] [id number] [place] [address] 13 Nov, 2011 [facility] [address] [id number] [place] [address] Nov, [facility] [address] [id number] [place] [address] 08 Nov, 2011 [facility] [place] [facility] [address] [id number] [place] [address] Nov, [facility] [address] [id number] [place] [address] Nov, [facility] [place] [place] [facility] [address] [id number] [place] [address] Nov, [facility] [place] [place] [facility] [address] [id number] [place] [address] Oct, [facility] [place] [facility] [address] [id number] [place] [address] Oct, [facility] [place] [facility] [address] [id number] [place] [address] Oct, [facility] [place] [place] [facility] [address] [id number] [place] [address] Oct, [facility] [place] [facility] [address] [id number] [place] [address] Oct, [facility] [place] [facility] [address] [id number] [place] [address] Oct, [facility] [place] [facility] [address] [id number] [place] [address] Oct, [facility] [place] [facility] [address] [id number] [place] [address] Sep, [facility] [place] [facility] [address] [id number] [place] [address] Sep, [facility] [place] [facility] [address] [id number] [place] [address] August, [facility] [place] [facility] [address] [id number] [place] [address] August, [facility] [place] [facility] [address] [id number] [place] [address] August, [facility] [place] [facility] [address] [id number] [place] [address] August, [facility] [place] [facility] [address] [id number] [place] [address] Jul, [facility] [place] [facility] [address] [id number] [place] [address] Jul, [facility] [place] [facility] [address] [id number] [place] [address] Jul, [facility] [place] [facility] [address] [id number] [place] [address] Jul, [facility] [place] [facility] [address] [id number] [place] [address] Jul, [facility] [place] [facility] [address] [id number] [place] [address] Jul, [facility] [place] [facility] [address] [id number], [place] [address] Jul, [facility] [address] [id number] [place] [address] Jul, [facility] [place] [facility] [address] [id number] [place] [address] Jul, [facility] [address] [id number] [place] [address] 23 Jun, 2011 [facility] [place] [facility] [address] [id number] [place] [address] 19 Jun, 2011 [facility] [address] [id number] [place] [address] 15 Jun, 2011 [facility] [address] [id number] [place] [address] 14 Jun, 2011 [facility] [address] [id number] [place] [place] [address] Jun, [facility] [place] [facility] [address] [facility] [id number] [place] [address] Jun, [facility] [address] [facility] [id number] [place] [address] Jun, [facility] [address] [facility] [id number] [place] [address] May, [facility] [place] [place] [facility] [address] [id number] [place] [address] 24 May, 2011 [facility] [place] [facility] [address] [id number], [place] [address] 16 May, 2011 [facility] [place] [facility] [address] [id number] [place] [address] May, [facility] [place] [facility] [address] [id number] [place] [address] May, [facility] [place] [facility] [address] [facility] [id number], [place] [address] Apr, [facility] [place] [facility] [address] [id number] [place] [address] Apr, [facility] [place] [facility] [address] [id number] [place] [address] Apr, [facility] [place] [facility] [address] [id number] [place] [address] Apr, [facility] [place] [facility] [address] [id number] [place] [address] Apr, [facility] [place] [facility] [address] [id number] [place] [address] Mar, [facility] [place] [facility] [address] [id number] [place] [address] Mar, [facility] [place] [facility] [address] [id number] [place] [address] Mar, [facility] [place] [facility] [address] [id number] [place] [address] Mar, [facility] [place] [facility] [address] [id number] [place] [address] Mar, [facility] [place] [facility] [address] [id number] [place] [address] Mar, [facility] [place] [facility] [address] [id number] [place] [address] Mar, [facility] [place] [facility] [address] [id number] [place] [address] Feb, [facility] [place] [facility] [address] [id number] [place] [address] Feb, [facility] [place] [facility] [address] [id number] [place] [address] Feb, [facility] [place] [facility] [address] [id number] [place] [address] Feb, [facility] [place] [facility] [address] [id number], [place] [address] Jan, [facility] [address] [id number] [place] [address] Jan, [facility] [address] [id number], [place] [address] Jan, [facility] [address] [facility] [id number], [place] [address] Jan, [facility] [address] [id number], [place] [address] Nov, [facility] [address] [id number] [place] [address] Mar, [facility] [address] [facility] [id number], [place] [address] Mar, [facility] [address] [facility] [id number], [place] [address] Mar, [facility] [address] [facility] [id number], [place] [address] Mar, [facility] [address] [facility] [id number], [place] [address] Mar, [facility] [address] [facility] [id number], [place] [address] Mar, [facility] [address] [facility] [id number], [place] [address] Feb, [facility] [address] [facility] [id number], [place] [address] Feb, [facility] [address] [facility] [id number], [place] [address] Jan, [facility] [address] [facility] [id number], [place] [address] Jan, [facility] [address] [facility] [id number], [place] [address] Jan, IMMUNIZATIONS No Known Immunizations SOCIAL HISTORY Never Assessed REASON FOR VISIT EMR-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
--- OUTSIDE RECORDS SUMMARY | 2018-10-26 12:24 | XMS REPORT ---
Author Author Migration, Doctor Organization [facility] Address Unknown Phone Unavailable Care Team Providers Care Computer Technical Support Specialist Name Role Phone Migration, Doctor Unavailable Unavailable PROBLEMS Type Condition ICD9-CM Code EYT30-XT Code Onset Dates Condition Status SNOMED Code Problem Restless leg G25.81 Active 94402657 Problem Insomnia G47.00 Active 196370789 Problem Hypothyroid E03.9 Active 64850663 Problem Palpitations R00.2 Active 66403470 Problem Asthma J45.909 Active 511518463 Problem Chronic kidney disease, stage 4 (severe) N18.4 Active 798576013 Problem Depressed F32.9 Active 15493761 Problem Bipolar disorder, current episode manic without psychotic features F31.10 Active 596300737 Problem Generalized anxiety disorder F41.1 Active 04971442 Problem Anemia in chronic kidney disease D63.1 Active 340312257628790 Problem Low back pain M54.5 Active 150343839 Problem Coronary artery disease involving standing rock coronary artery of standing rock heart, angina presence unspecified I25.10 Active 5860544024897 Problem Dysthymic disorder F34.1 Active 61511511 Problem Other seasonal allergic rhinitis J30.2 Active 763471950 Problem History of anemia Z86.2 Active 022595639 Problem Fibromyalgia M79.7 Active 646941143 Problem Hypokalemia E87.6 Active 63333117 Problem Vitamin D deficiency E55.9 Active 57604426 Problem Mixed stress and urge urinary incontinence N39.46 Active 645979385 Problem Chronic kidney disease, unspecified N18.9 Active 830603417 Problem Abnormal chest CT R93.8 Active 598293445 Problem Essential (primary) hypertension I10 Active 77071770 Problem Long-term use of high-risk medication Z79.899 Active 490107022 Problem Degenerative tear of medial meniscus of left knee M23.204 Active 522449156 Problem Primary osteoarthritis of left knee M17.12 Active 520286562 Problem Mood disorder F39 Active 10634184 Problem Chronic pain syndrome G89.4 Active 815949906 Problem History of colon polyps Z86.010 Active 152827103 Problem Perimenopausal vasomotor symptoms N95.1 Active 444421207 Problem Functional diarrhea K59.1 Active 23101859 Problem Asthma with acute exacerbation in adult J45.901 Active 442794361 Problem Stage 3 chronic kidney disease N18.3 Active 406770634 Problem Body mass index (BMI) of 40.0-44.9 in adult Z68.41 Active 057726702 Problem Seasonal allergic rhinitis due to pollen J30.1 Active 61260183 Problem Restless leg syndrome G25.81 Active 30825336 ALLERGIES No Information ENCOUNTERS Encounter Location Date Diagnosis [facility] [id number] [place] [address] Sep, [place] [address] [address] August, [facility] [address] [address] August, [place] [address] [address] Jul, Urinary tract infection without hematuria, site unspecified N39.0 [facility] [id number] [place] [address] Jul, [facility] [id number] [place] [address] Jul, [facility] [id number] [place] [address] Jul, Fibromyalgia M79.7 [facility] [id number] [place] [address] Jul, Acute pain of right shoulder M25.511 [facility] [address] [address] Jul, Acute pain of right shoulder M25.511 and Morbid obesity E66.01 [facility] [id number] [place] [address] Jun, [facility] [id number] [place] [address] 14 Jun, 2018 Generalized anxiety disorder F41.1 and Major depressive disorder, recurrent episode with anxious distress F33.9 [facility] [id number] [place] [address] 11 Jun, 2018 [facility] [id number] [place] [address] Jun, Fibromyalgia M79.7 [facility] [id number] [place] [address] 04 Jun, 2018 Acute pain of right shoulder M25.511 ; Acute pain of right hip M25.551 and Morbid obesity E66.01 [facility] [id number] [place] [address] 11 May, 2018 Burning with urination R30.0 ; Vaginal discharge N89.8 ; Chronic kidney disease, stage 4 (severe) N18.4 ; Body mass index (BMI) of 40.0-44.9 in adult Z68.41 and Morbid obesity E66.01 [facility] [id number] [place] [address] 07 May, 2018 Fibromyalgia M79.7 [facility] [id number] [place] [address] 06 May, 2018 Generalized anxiety disorder F41.1 and Major depressive disorder, recurrent episode with anxious distress F33.9 [facility] [id number] [place] [address] Apr, [facility] [id number] [place] [address] Apr, Fibromyalgia M79.7 [facility] [id number] [place] [address] Mar, Acute UTI N39.0 and Dysuria R30.0 [facility] [id number] [place] [address] Mar, Fibromyalgia M79.7 [facility] [id number] [place] [address] Feb, [facility] [id number] [place] [address] Feb, [facility] [id number] [place] [address] Feb, [facility] [id number] [place] [address] Feb, Fibromyalgia M79.7 [facility] [id number] [place] [address] 08 Feb, 2018 Complicated UTI (urinary tract infection) N39.0 [facility] [id number] [place] [address] Feb, [facility] [id number] [place] [address] Jan, Generalized anxiety disorder F41.1 and Major depressive disorder, recurrent episode with anxious distress F33.9 [facility] [id number] [place] [address] Jan, Acute conjunctivitis of left eye, unspecified acute conjunctivitis type H10.32 [facility] [id number] [place] [address] Jan, [facility] [id number] [place] [address] Jan, Acute non-recurrent maxillary sinusitis J01.00 ; Dysuria R30.0 ; Perimenopausal vasomotor symptoms N95.1 and Fibromyalgia M79.7 [facility] [id number] [place] [address] Dec, Vitamin D deficiency E55.9 [facility] [id number] [place] [address] Dec, Vitamin D deficiency E55.9 [place] [id number] [place] [address] Dec, Vitamin D deficiency E55.9 [facility] [id number] [place] [address] Dec, [facility] [id number] [place] [address] Dec, Fibromyalgia M79.7 [facility] [id number] [place] [address] Nov, [facility] [id number] [place] [address] Nov, [facility] [id number] [place] [address] Nov, [facility] [id number] [place] [address] Nov, Fibromyalgia M79.7 ; Vision changes H53.9 ; Chest wall pain R07.89 and Chronic pain syndrome G89.4 [facility] [id number] [place] [address] Nov, [facility] [id number] [place] [address] Nov, Rash of hands R21 [facility] [id number] [place] [address] Nov, Generalized anxiety disorder F41.1 and Major depressive disorder, recurrent episode with anxious distress F33.9 [facility] [id number] [place] [address] Nov, Fibromyalgia M79.7 [facility] [id number] [place] [address] Nov, Complicated UTI (urinary tract infection) N39.0 [facility] [id number] [place] [address] Oct, [facility] [id number] [place] [address] Oct, Generalized anxiety disorder F41.1 and Major depressive disorder, recurrent episode with anxious distress F33.9 [facility] [id number] [place] [address] Oct, [facility] [id number] [place] [address] Oct, Fibromyalgia M79.7 [facility] [id number] [place] [address] Sep, Restless leg syndrome G25.81 and Restless leg G25.81 [facility] [id number] [place] [address] Sep, [facility] [id number] [place] [address] Sep, Seasonal allergic rhinitis due to pollen J30.1 ; Screening for breast cancer Z12.31 ; Chest pain at rest R07.9 ; Restless leg syndrome G25.81 ; Essential (primary) hypertension I10 and Depressed F32.9 [facility] [id number] [place] [address] August, Fibromyalgia M79.7 [facility] [id number] [place] [address] August, [facility] [id number] [place] [address] August, [facility] [id number] [place] [address] August, Abnormal chest [address] R93.8 [facility] [id number] [place] [address] August, Generalized anxiety disorder F41.1 and Major depressive disorder, recurrent episode with anxious distress F33.9 [facility] [id number] [place] [address] August, Abnormal chest [address] R93.8 [facility] [id number] [place] [address] Jul, [facility] [id number] [place] [address] Jul, Chronic kidney disease, stage 4 (severe) N18.4 [facility] [id number] [place] [address] Jul, [facility] [id number] [place] [address] Jul, Restless leg G25.81 ; Mixed stress and urge urinary incontinence N39.46 and Fibromyalgia M79.7 [facility] [id number] [place] [address] Jul, Chronic kidney disease, stage 4 (severe) N18.4 [facility] [id number] [place] [address] Jun, Orthostatic hypotension I95.1 ; Chronic kidney disease, stage 4 (severe) N18.4 ; Chest wall discomfort R07.89 and Body mass index (BMI) of 40.0-44.9 in adult Z68.41 [facility] [id number] [place] [address] Jun, [facility] [id number] [place] [address] Jun, Orthostatic hypotension I95.1 [facility] [id number] [place] [address] Jun, [facility] [id number] [place] [address] Jun, Orthostatic hypotension I95.1 ; Dysuria R30.0 and Acute cystitis without hematuria N30.00 [facility] [id number] [place] [address] Jun, [place] [address] [address] Jun, Chronic kidney disease, stage 4 (severe) N18.4 [facility] [id number] [place] [address] Jun, Fibromyalgia M79.7 [facility] [id number] [place] [address] Jun, [facility] [id number] [place] [address] Jun, [facility] [id number] [place] [address] May, Abnormal chest [address] R93.8 and Stage 3 chronic kidney disease N18.3 [facility] [id number] [place] [address] May, Chronic kidney disease, stage 4 (severe) N18.4 [facility] [id number] [place] [address] May, Chronic kidney disease, stage 4 (severe) N18.4 [facility] [id number] [place] [address] May, Ab[address] R93.8 [facility] [id number] [place] [address] May, [facility] [id number] [place] [address] May, [facility] [id number] [place] [address] May, Generalized anxiety disorder F41.1 and Major depressive disorder, recurrent episode with anxious distress F33.9 [facility] [address] [place] [address] May, Mood disorder F39 [facility] [id number] [place] [address] Apr, [facility] [id number] [address] Apr, Infected skin lesion L08.9 and Muscle strain of right shoulder region, initial encounter S46.911A [facility] [id number] [address] Apr, Generalized anxiety disorder F41.1 and Major depressive disorder, recurrent episode with anxious distress F33.9 [place] [address] [address] Apr, [place] [address] [place] [address] Apr, Recent urinary tract infection Z87.440 and Hypothyroid E03.9 [place] [address] [address] Apr, Generalized anxiety disorder F41.1 and Major depressive disorder, recurrent episode with anxious distress F33.9 [facility] [address] [address] Apr, Recent urinary tract infection Z87.440 [place] [address] [address] Mar, [facility] [id number] [address] Mar, Dysuria R30.0 ; Acute cystitis without hematuria N30.00 and BMI 40.0- 44.9, adult Z68.41 [facility] [id number] [address] Mar, [place] [id number] [place] [address] Mar, [facility] [id number] [address] Mar, Generalized anxiety disorder F41.1 and Major depressive disorder, recurrent episode with anxious distress F33.9 [facility] [address] [place] [address] Feb, Conjunctivitis, bacterial H10.9 [facility] [id number] [place] [address] Feb, [facility] [id number] [place] [address] Feb, Conjunctivitis, bacterial H10.9 [facility] [id number] [place] [address] Feb, [facility] [address] [address] Feb, Dysuria R30.0 ; Acute cystitis N30.00 and BMI 40.0-44.9, adult Z68.41 [place] [address] [address] Feb, [place] [id number] [place] [address] Feb, Generalized anxiety disorder F41.1 and Major depressive disorder, recurrent episode with anxious distress F33.9 [facility] [id number] [place] [address] Feb, Mood disorder F39 and BMI 40.0-44.9, adult Z68.41 [facility] [place] [id number] [place] [address] Jan, [facility] [place] [id number] [place] [address] Jan, [place] [address] [address] Jan, Hypothyroid E03.9 [place] [id number] [place] [address] Jan, [facility] [place] [id number] [place] [address] Jan, Chronic kidney disease, unspecified N18.9 ; Hypokalemia E87.6 ; Essential (primary) hypertension I10 ; Fibromyalgia M79.7 ; Coronary artery disease involving standing rock coronary artery of standing rock heart, angina presence unspecified I25.10 ; Hypothyroid E03.9 and Encounter for immunization Z23 [facility] [id number] [place] [address] Jan, Hypothyroid E03.9 [place] [address] [address] Jan, [place] [address] [address] Dec, Vitamin D deficiency E55.9 [place] [address] [address] Dec, Primary osteoarthritis of left knee M17.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 [place] [id number] [place] [address] 19 Dec, 2016 Fibromyalgia M79.7 [place] [id number] [place] [address] 18 Dec, 2016 Mood disorder F39 [facility] [id number] [place] [address] 13 Dec, 2016 [facility] [id number] [place] [address] 13 Dec, 2016 Generalized anxiety disorder F41.1 and Major depressive disorder, recurrent episode with anxious distress F33.9 [facility] [id number] [place] [address] 11 Dec, 2016 [facility] [id number] [place] [address] 08 Dec, 2016 Streptococcal meningitis G00.2 [place] [address] [address] Dec, Streptococcal meningitis G00.2 [facility] [address] [address] Dec, [facility] [id number] [place] [address] Dec, Streptococcal meningitis G00.2 [facility] [id number] [place] [address] Dec, [facility] [id number] [place] [address] Dec, Major depressive disorder, recurrent episode with anxious distress F33.9 [facility] [place] [id number] [place] [address] Nov, Fever, unspecified fever cause R50.9 [place] [id number] [place] [address] Nov, [facility] [id number] [place] [address] Nov, Hypothyroid E03.9 [facility] [id number] [place] [address] Nov, Generalized anxiety disorder F41.1 and Major depressive disorder, recurrent episode with anxious distress F33.9 [place] [address] [address] Nov, [facility] [id number] [place] [id number] Oct, Dental examination Z01.20 [facility] [id number] [place] [address] Oct, Generalized anxiety disorder F41.1 and Major depressive disorder, recurrent episode with anxious distress F33.9 [facility] [id number] [place] [address] Oct, Chronic kidney disease, stage 4 (severe) N18.4 [facility] [address], [place] [address] Oct, [place] [id number] [place] [address] Oct, Fibromyalgia M79.7 [place] [address], [place] [address] Oct, [facility] [id number] [place] [address] Oct, Generalized anxiety disorder F41.1 ; Major depressive disorder, recurrent episode with anxious distress F33.9 and Bipolar disorder, current episode manic without psychotic features F31.10 [facility] [id number] [place] [address] Sep, [place] [facility] [id number] [place] [address] Sep, [facility] [id number] [place] [address] Sep, Vitamin D deficiency E55.9 [facility] [id number] [place] [address] Sep, Vitamin D deficiency E55.9 [place] [address], [place] [address] Sep, [place] [address] [address] Sep, Chronic kidney disease, stage 4 (severe) N18.4 ; Hypothyroid E03.9 ; Restless leg G25.81 ; Fibromyalgia M79.7 ; Essential (primary) hypertension I10 ; Vitamin D deficiency E55.9 ; Dyspepsia R10.13 ; Anemia in chronic kidney disease D63.1 ; Chronic kidney disease, unspecified N18.9 ; Coronary artery disease involving standing rock coronary artery of standing rock heart, angina presence unspecified I25.10 ; Screening breast examination Z12.39 and Low back pain M54.5 [place] [address], [place] [address] August, Generalized anxiety disorder F41.1 and Major depressive disorder, recurrent episode with anxious distress F33.9 [facility] [place] [id number] [place] [address] August, Generalized anxiety disorder F41.1 and Major depressive disorder, recurrent episode with anxious distress F33.9 [facility] [id number] [place] [address] August, Fibromyalgia M79.7 [place] [id number] [place] [address] Jul, Generalized anxiety disorder F41.1 and Major depressive disorder, recurrent episode with anxious distress F33.9 [facility] [id number] [place] [address] Jul, Fibromyalgia M79.7 [facility] [id number] [place] [address] Jul, Generalized anxiety disorder F41.1 [facility] [address] [place] [id number] [place] [id number] May, [facility] [address] [place] [id number] [place] [id number] May, Hypothyroid E03.9 [facility] [id number] [address] May, Chronic kidney disease, stage 4 (severe) N18.4 ; Hypothyroid E03.9 ; Restless leg G25.81 ; Fibromyalgia M79.7 ; Essential (primary) hypertension I10 ; Vitamin D deficiency E55.9 ; Dyspepsia R10.13 ; Acute non-recurrent maxillary sinusitis J01.00 ; Anemia in chronic kidney disease D63.1 ; Chronic kidney disease, unspecified N18.9 and Coronary artery disease involving standing rock coronary artery of standing rock heart, angina presence unspecified I25.10 [facility] [id number] [place] [id number] May, Vitamin D deficiency, unspecified E55.9 [facility] [id number] [address] May, Generalized anxiety disorder F41.1 and Major depressive disorder, recurrent episode with anxious distress F33.9 [facility] [id number] [place] [id number] Apr, Pain in right knee M25.561 and Pain in left knee M25.562 [facility] [address] [place] [id number] [place] [address] Apr, [facility] [place] [id number] [place] [address] Apr, [facility] [id number] [place] [address] Apr, [facility] [id number] [place] [address] Mar, Generalized anxiety disorder F41.1 and Major depressive disorder, recurrent episode with anxious distress F33.9 [facility] [id number] [place] [address] Mar, Generalized anxiety disorder F41.1 and Major depressive disorder, recurrent episode with anxious distress F33.9 [facility] [id number] [place] [address] Mar, [facility] [id number] [place] [address] Mar, [facility] [address] [address] Mar, [facility] [id number] [place] [address] Mar, Asthma J45.909 and Fibromyalgia M79.7 [facility] [address] [address] Mar, Chronic kidney disease, stage 4 (severe) N18.4 ; Vitamin D deficiency E55.9 and Essential (primary) hypertension I10 [facility] [id number] [place] [address] Feb, [facility] [id number] [place] [address] Feb, Dysuria R30.0 ; Mixed stress and urge urinary incontinence N39.46 ; Fibromyalgia M79.7 and Chronic kidney disease, stage IV (severe) N18.4 [facility] [address] [address] Feb, Chronic kidney disease, stage 4 (severe) N18.4 [facility] [address] [address] Feb, Chronic kidney disease, stage 4 (severe) N18.4 [facility] [address] [address] Feb, [facility] [address] [address] Feb, Vitamin D deficiency, unspecified E55.9 [facility] [id number] [place] [address] Jan, [facility] [id number] [place] [address] Jan, [facility] [id number] [place] [address] Dec, [facility] [id number] [place] [address] Dec, Chronic kidney disease, stage 4 (severe) N18.4 [facility] [id number] [place] [address] Dec, Dysthymic disorder F34.1 and Generalized anxiety disorder F41.1 [facility] [address] [address] Dec, [facility] [id number] [place] [address] Dec, [facility] [address] [address] Dec, Dysthymic disorder F34.1 and Generalized anxiety disorder F41.1 [facility] [address] [address] Dec, Dysuria R30.0 ; Chronic kidney disease, stage 4 (severe) N18.4 ; Hypertension I10 ; Dyspepsia R10.13 ; Yeast dermatitis B37.2 ; Palpitations R00.2 ; Hypothyroid E03.9 ; Functional diarrhea K59.1 and Other seasonal allergic rhinitis J30.2 [facility] [address] [address] Dec, [facility] [address] [address] Nov, Dysuria R30.0 and Stress incontinence N39.3 [facility] [address] [address] Nov, [facility] [address] [address] Nov, [facility] [address] [address] Nov, Osteoarthritis of knees, bilateral M17.0 [facility] [address] [address] Nov, Dysthymic disorder F34.1 and Generalized anxiety disorder F41.1 [facility] [address] [address] Nov, [facility] [address] [address] Nov, [facility] [address] [address] Nov, Urgency of urination R39.15 [facility] [id number] [place] [address] Nov, [facility] [id number] [place] [address] Nov, Chronic kidney disease, stage 4 (severe) N18.4 [facility] [id number] [place] [address] Oct, Hypertension I10 ; Coronary artery disease involving standing rock coronary artery of standing rock heart, angina presence unspecified I25.10 ; Palpitations R00.2 ; Hypothyroid E03.9 ; Right foot pain M79.671 ; Functional diarrhea K59.1 and Other seasonal allergic rhinitis J30.2 [facility] [id number] [place] [address] Oct, Dysthymic disorder F34.1 and Generalized anxiety disorder F41.1 [facility] [id number] [place] [address] Sep, [facility] [id number] [place] [address] Sep, [facility] [id number] [place] [address] Sep, [facility] [id number] [place] [address] Sep, [facility] [id number] [place] [address] Sep, [facility] [id number] [place] [address] Sep, Dysthymic disorder F34.1 and Generalized anxiety disorder F41.1 [facility] [id number] [place] [address] Sep, Asthma with acute exacerbation in adult J45.901 ; Dysuria R30.0 ; Chronic kidney disease, stage 4 (severe) N18.4 and History of anemia Z86.2 [facility] [id number] [place] [address] Sep, Generalized anxiety disorder F41.1 and Dysthymic disorder F34.1 [facility] [id number] [place] [address] August, Screening breast examination Z12.39 and Acute recurrent maxillary sinusitis J01.01 [facility] [id number] [place] [address] August, Osteoarthritis of knees, bilateral M17.0 [facility] [address] [address] August, Chronic kidney disease, stage 4 (severe) N18.4 ; Acute non-recurrent maxillary sinusitis J01.00 ; Urinary problem R39.89 ; Bowel habit changes R19.4 ; Functional diarrhea K59.1 and History of colon polyps Z86.010 [facility] [id number] [place] [address] Jul, Dysthymic disorder F34.1 and Generalized anxiety disorder F41.1 [facility] [id number] [place] [address] Jul, [facility] [id number] [place] [address] 18 Jul, 2015 Dysthymic disorder F34.1 ; Generalized anxiety disorder F41.1 and USP use of drug Z79.899 [facility] [id number] [place] [address] Jul, [facility] [id number] [place] [address] 16 Jun, 2015 [facility] [id number] [place] [address] Jun, [facility] [address] [address] May, [facility] [id number] [place] [address] May, Dysthymic disorder F34.1 and Generalized anxiety disorder F41.1 [facility] [id number] [place] [address] Apr, Kidney disease N28.9 [facility] [address] [address] Apr, Generalized anxiety disorder F41.1 and Dysthymic disorder F34.1 [facility] [address] [address] Apr, Chronic kidney disease, stage 4 (severe) N18.4 [facility] [id number] [place] [address] Apr, Generalized anxiety disorder F41.1 ; Major depression, recurrent F33.9 and Sleep disturbance G47.9 [facility] [id number] [place] [address] Mar, Generalized anxiety disorder F41.1 and Dysthymic disorder F34.1 [facility] [id number] [place] [address] Mar, Generalized anxiety disorder F41.1 ; Dysthymic disorder F34.1 and Insomnia G47.00 [facility] [id number] [place] [address] Mar, [facility] [id number] [place] [address] Mar, [facility] [address] [address] Mar, Osteoarthritis of knees, bilateral M17.0 [facility] [id number] [place] [address] Mar, Hypertension I10 ; Hypothyroid E03.9 ; Dysthymic disorder F34.1 ; Chronic kidney disease, stage 4 (severe) N18.4 and Nausea & vomiting R11.2 [facility] [address] [address] Mar, Generalized anxiety disorder F41.1 ; Dysthymic disorder F34.1 and Insomnia G47.[address] [address] Mar, Dehydration E86.0 ; Chronic kidney disease, stage 4 (severe) N18.4 and Nausea & vomiting R11.2 [facility] [address] [address] Mar, Gastroenteritis K52.[address] [address] Mar, [address] [address] Mar, [address] [address] Feb, Dysthymic disorder F34.1 and Generalized anxiety disorder F41.[address] [address] Jan, UTI (urinary tract infection) N39.0 ; Asthma J45.909 ; Coronary artery disease involving standing rock coronary artery of standing rock heart, angina presence unspecified I25.10 ; Hypertension I10 ; Hypothyroid E03.9 ; Vitamin D deficiency E55.9 ; Insomnia G47.00 ; Palpitations R00.2 ; Depressed F32.9 ; Restless leg G25.81 and Anxiety F41.[address] [address] Jan, Dysthymic disorder F34.1 and Generalized anxiety disorder F41.[address] [address] Jan, [facility] [id number] [place] [address] Dec, [address] [address] Dec, Alkalosis 276.3 ; Chronic kidney disease, Stage IV (severe) 585.4 ; Hyperpotassemia 276.7 ; Secondary hyperparathyroidism, renal 588.81 ; Proteinuria 791.0 ; Unspecified vitamin D deficiency 268.9 ; Anemia in chronic kidney disease 285.21 ; Other and unspecified hyperlipidemia 272.4 ; Hypertension, essential, benign 401.1 and Chronic kidney disease (CKD), stage III (moderate) 585.3 [place] [id number] [place] [address] Dec, [address] [address] Dec, Depressive disorder, not elsewhere classified 311 and Generalized anxiety disorder 300.02 [place] [id number] [place] [address] Dec, [place] [id number] [place] [address] Dec, [place] [id number] [place] [address] Nov, Depressive disorder, not elsewhere classified 311 and Generalized anxiety disorder 300.02 [place] [id number] [place] [address] Nov, Arthritis of both knees 716.96 [place] [id number] [place] [address] 07 Nov, 2014 PAF (paroxysmal atrial fibrillation) 427.31 ; CAD (coronary artery disease) 414.00 ; Chest pain 786.50 and Chronic kidney disease (CKD) stage G4/A1, severely decreased glomerular filtration rate (GFR) between 15-29 mL/min/1.73 square meter and albuminuria creatinine ratio less than 30 mg/g 585.[address] [place] [address] Oct, Coronary atherosclerosis of unspecified type of vessel, standing rock or graft 414.00 ; Chronic kidney disease, Stage IV (severe) 585.4 ; Hypertension 401.9 and Edema 782.3 [facility] [id number] [place] [address] Oct, Depressive disorder, not elsewhere classified 311 and Generalized anxiety disorder 300.02 [facility] [id number] [place] [address] Oct, Depressive disorder, not elsewhere classified 311 and Generalized anxiety disorder 300.02 [facility] [address] [address] Oct, [facility] [id number] [place] [address] Oct, [facility] [id number] [place] [address] Sep, [facility] [id number] [place] [address] Sep, Chronic kidney disease, Stage IV (severe) 585.4 [facility] [id number] [place] [address] Sep, [facility] [id number] [place] [address] Sep, Coronary atherosclerosis of unspecified type of vessel, standing rock or graft 414.00 ; Hypertension 401.9 ; Edema 782.3 and Hypothyroidism 244.9 [facility] [id number] [place] [address] Sep, Coronary atherosclerosis of unspecified type of vessel, standing rock or graft 414.00 ; Hypertension 401.9 ; Fibromyalgia 729.1 ; Edema 782.3 ; Hypothyroidism 244.9 and Anemia 285.9 [facility] [id number] [place] [address] Sep, Anxiety disorder, unspecified 300.00 and Depressive disorder, not elsewhere classified 311 [facility] [id number] [address] Sep, [facility] [address], [place] [address] August, Generalized anxiety disorder 300.02 [facility] [address] [address] August, Closed fracture of lateral malleolus 824.2 [facility] [id number] [address] Jul, [facility] [id number] [place] [address] Jul, [facility] [address] [address] Jun, [facility] [address] [address] Jun, [facility] [address], [place] [address] Jun, [facility] [address], [place] [address] Jun, [facility] [address] [address] Jun, [facility] [address] [address] Jun, [facility] [id number] [address] May, [facility] [address], [place] [address] May, [facility] [id number] [address] May, [facility] [address] [address] 18 May, 2014 [facility] [place] [facility] [address] [id number] [place] [address] 16 May, 2014 [facility] [place] [facility] [address] [id number] [place] [address] 16 May, 2014 [facility] [place] [facility] [address] [id number] [place] [address] 13 May, 2014 [facility] [place] [facility] [address] [id number] [place] [address] 13 May, 2014 [facility] [place] [facility] [address] [id number] [place] [address] 10 May, 2014 [facility] [place] [facility] [address] [facility] [id number] [place] [address] 10 May, 2014 [facility] [place] [facility] [address] [facility] [id number] [place] [address] Apr, [facility] [place] [facility] [address] [facility] [id number] [place] [address] Apr, [facility] [place] [facility] [address] [facility] [id number] [place] [address] Mar, [facility] [place] [facility] [address] [facility] [id number] [place] [address] Mar, [facility] [place] [facility] [address] [facility] [id number] [place] [address] Mar, [facility] [place] [facility] [address] [id number] [address] 15 Mar, 2014 [facility] [place] [facility] [address] [id number] [place] [address] 15 Mar, 2014 [facility] [place] [facility] [address] [facility] [id number] [place] [address] 15 Mar, 2014 [facility] [place] [facility] [address] [facility] [id number] [place] [address] 15 Mar, 2014 [facility] [place] [facility] [address] [id number] [place] [address] Feb, [facility] [place] [facility] [address] [id number] [place] [address] Feb, [facility] [place] [facility] [address] [id number] [place] [address] Feb, [facility] [place] [facility] [address] [id number] [place] [address] Jan, [facility] [place] [facility] [address] [id number] [place] [address] Jan, [facility] [place] [facility] [address] [id number] [place] [address] Jan, [facility] [place] [facility] [address] [id number] [place] [address] Jan, [facility] [place] [facility] [address] [id number] [place] [address] Jan, [facility] [place] [facility] [address] [id number] [place] [address] Jan, [facility] [place] [facility] [address] [id number] [place] [address] Jan, [facility] [place] [facility] [address] [id number] [place] [address] Jan, [facility] [place] [facility] [address] [id number] [place] [address] Jan, [facility] [place] [facility] [address] [id number] [place] [address] Jan, [facility] [place] [facility] [address] [id number] [place] [address] Nov, [facility] [place] [facility] [address] [id number] [place] [address] Nov, [facility] [place] [facility] [address] [id number] [place] [address] Nov, [facility] [place] [facility] [address] [id number] [place] [address] Oct, [facility] [place] [facility] [address] [id number] [place] [address] Oct, [facility] [place] [facility] [address] [id number] [place] [address] Oct, [facility] [place] [facility] [address] [id number] [place] [address] Oct, [facility] [place] [facility] [address] [id number] [place] [address] Oct, [facility] [place] [facility] [address] [id number] [place] [address] Oct, [facility] [place] [facility] [address] [id number] [place] [address] Oct, [facility] [place] [facility] [address] [id number] [place] [address] Oct, [facility] [place] [facility] [address] [id number] [place] [address] Oct, [facility] [place] [facility] [address] [id number] [place] [address] Sep, [facility] [place] [facility] [address] [id number] [place] [address] Sep, [facility] [place] [facility] [address] [id number] [place] [address] Sep, [facility] [place] [facility] [address] [id number] [place] [address] Sep, [facility] [place] [facility] [address] [id number] [place] [address] Sep, [facility] [place] [facility] [address] [id number] [place] [address] Sep, [facility] [place] [facility] [address] [id number] [place] [address] Sep, [facility] [place] [facility] [address] [id number] [place] [address] Sep, [facility] [place] [facility] [address] [id number] [place] [address] Sep, [facility] [place] [facility] [address] [id number] [place] [address] August, [facility] [place] [facility] [address] [id number] [place] [address] August, [facility] [place] [facility] [address] [id number] [place] [address] August, [facility] [place] [facility] [address] [id number] [place] [address] August, [facility] [place] [facility] [address] [id number] [place] [address] August, [facility] [place] [facility] [address] [id number] [place] [address] August, [facility] [place] [facility] [address] [id number] [place] [address] Jul, [facility] [place] [facility] [address] [id number] [place] [address] Jul, [facility] [place] [facility] [address] [id number] [place] [address] Jul, [facility] [place] [facility] [address] [id number] [place] [address] Jul, [facility] [place] [facility] [address] [id number] [place] [address] Jul, [facility] [place] [facility] [address] [id number] [place] [address] Jul, [facility] [place] [facility] [address] [id number] [place] [address] Jun, [facility] [place] [facility] [address] [id number] [place] [address] Jun, [facility] [place] [facility] [address] [id number] [place] [address] May, [facility] [place] [facility] [address] [id number] [place] [address] May, [facility] [place] [facility] [address] [id number] [place] [address] May, [facility] [place] [facility] [address] [id number] [place] [address] May, [facility] [place] [facility] [address] [id number] [place] [address] Apr, [facility] [place] [facility] [address] [id number] [place] [address] Apr, [facility] [place] [facility] [address] [id number] [place] [address] Mar, [facility] [place] [facility] [address] [id number] [place] [address] Mar, [facility] [place] [facility] [address] [id number] [place] [address] Mar, [facility] [place] [facility] [address] [id number] [place] [address] Mar, [facility] [place] [facility] [address] [id number], [place] [address] Mar, [facility] [place] [facility] [address] [id number] [place] [address] Mar, [facility] [place] [facility] [address] [id number] [place] [address] Feb, [facility] [place] [facility] [address] [id number] [place] [address] Feb, [facility] [place] [facility] [address] [id number], [place] [address] 14 Feb, 2013 [facility] [place] [facility] [address] [id number] [place] [address] 14 Feb, 2013 [facility] [place] [facility] [address] [id number] [place] [address] 05 Feb, 2013 [facility] [place] [facility] [address] [facility] [id number] [place] [address] Feb, [facility] [place] [facility] [address] [id number] [place] [address] Jan, [facility] [place] [facility] [address] [id number] [place] [address] Jan, [facility] [place] [facility] [address] [id number] [place] [address] Jan, [facility] [place] [facility] [address] [facility] [id number] [place] [address] Jan, [facility] [place] [facility] [address] [id number] [place] [address] Jan, [facility] [place] [facility] [address] [facility] [id number] [place] [address] Jan, [facility] [place] [facility] [address] [facility] [id number] [place] [address] Dec, [facility] [place] [facility] [address] [id number] [place] [address] Dec, [facility] [place] [facility] [address] [id number], [place] [address] Nov, [facility] [place] [facility] [address] [id number] [place] [address] Nov, [facility] [place] [facility] [address] [facility] [id number] [place] [address] Oct, [facility] [place] [facility] [address] [facility] [id number] [place] [address] Oct, [facility] [place] [facility] [address] [id number] [place] [address] Oct, [facility] [place] [facility] [address] [id number] [place] [address] Oct, [facility] [place] [facility] [address] [id number] [place] [address] Oct, [facility] [place] [facility] [address] [id number] [place] [address] Oct, [facility] [place] [facility] [address] [id number] [place] [address] Sep, [facility] [place] [facility] [address] [id number] [place] [address] Sep, [facility] [place] [facility] [address] [id number] [place] [address] Sep, [facility] [place] [facility] [address] [id number] [place] [address] Sep, [facility] [place] [facility] [address] [id number] [place] [address] August, [facility] [place] [facility] [address] [id number] [place] [address] August, [facility] [place] [facility] [address] [id number] [place] [address] August, [facility] [place] [facility] [address] [id number] [place] [address] August, [facility] [place] [facility] [address] [id number] [place] [address] August, [facility] [place] [facility] [address] [id number] [place] [address] Jul, [facility] [place] [facility] [address] [id number] [place] [address] Jul, [facility] [place] [facility] [address] [id number] [place] [address] Jul, [facility] [address] [id number] [place] [address] Jul, [facility] [address] [id number] [place] [address] Jul, [facility] [address] [id number] [place] [address] Jul, [facility] [place] [facility] [address] [id number] [place] [address] Jul, [facility] [address] [id number] [place] [address] Jul, [facility] [address] [id number] [place] [address] Jul, [facility] [address] [id number] [address] Jul, [facility] [id number] [id number] Jun, [facility] [address] [id number] [place] [address] Jun, [facility] [address] [id number] [address] Jun, [facility] [place] [facility] [address] [id number], [place] [address] Jun, [facility] [place] [facility] [address] [id number], [place] [address] Jun, [facility] [place] [facility] [address] [id number] [place] [address] May, [facility] [place] [facility] [address] [id number], [place] [address] May, [facility] [place] [facility] [address] [id number], [place] [address] May, [facility] [place] [facility] [address] [id number] [place] [address] Apr, [facility] [address] [id number] [place] [address] Apr, [facility] [place] [facility] [address] [id number] [place] [address] Apr, [facility] [address] [id number] [place] [address] Apr, [facility] [place] [facility] [address] [id number] [place] [address] Apr, [facility] [address] [id number] [place] [address] Apr, [facility] [place] [facility] [address] [id number] [place] [address] Mar, [facility] [address] [id number] [place] [address] Mar, [facility] [place] [facility] [address] [id number] [place] [address] Mar, [facility] [address] [id number] [place] [address] Mar, [facility] [place] [facility] [address] [facility] [id number] [place] [address] Feb, [facility] [place] [facility] [address] [id number] [place] [address] Feb, [facility] [place] [facility] [address] [id number] [place] [address] Feb, [facility] [place] [facility] [address] [id number] [place] [address] Feb, [facility] [place] [facility] [address] [id number] [place] [address] Feb, [facility] [place] [facility] [address] [facility] [id number] [place] [address] Feb, [facility] [place] [facility] [address] [id number] [place] [address] Feb, [facility] [place] [facility] [address] [id number] [place] [address] Feb, [facility] [place] [facility] [address] [id number] [place] [address] Feb, [facility] [place] [facility] [address] [id number] [place] [address] Feb, [facility] [place] [facility] [address] [id number] [place] [address] Feb, [facility] [place] [facility] [address] [id number] [place] [address] Feb, [facility] [place] [facility] [address] [id number] [place] [address] Feb, [facility] [place] [facility] [address] [id number] [place] [address] Feb, [facility] [place] [facility] [address] [id number] [place] [address] Feb, [facility] [place] [facility] [address] [id number] [place] [address] Feb, [facility] [place] [facility] [address] [facility] [id number] [place] [address] Jan, [facility] [place] [facility] [address] [id number] [place] [address] Jan, [facility] [place] [facility] [address] [id number] [place] [address] Jan, [facility] [place] [facility] [address] [id number] [place] [address] Jan, [facility] [place] [facility] [address] [id number] [place] [address] Jan, [facility] [place] [facility] [address] [id number] [place] [address] Jan, [facility] [place] [facility] [address] [id number] [place] [address] 25 Jan, 2012 [facility] [place] [facility] [address] [id number] [place] [address] 16 Jan, 2012 [facility] [place] [facility] [address] [id number] [place] [address] 16 Jan, 2012 [facility] [place] [facility] [address] [id number] [place] [address] 15 Jan, 2012 [facility] [place] [facility] [address] [id number] [place] [address] 15 Jan, 2012 [facility] [place] [facility] [address] [id number] [place] [address] Jan, [facility] [place] [facility] [address] [id number] [place] [address] 26 Sep, 2011 [facility] [place] [facility] [address] [id number], [place] [address] 26 Sep, 2011 [facility] [place] [facility] [address] [id number] [place] [address] 24 Sep, 2011 [facility] [place] [facility] [address] [id number] [place] [address] 23 Sep, 2011 [facility] [place] [facility] [address] [id number], [place] [address] 22 Sep, 2011 [facility] [place] [facility] [address] [id number], [place] [address] 21 Sep, 2011 [facility] [place] [facility] [address] [id number] [place] [address] 20 Sep, 2011 [facility] [place] [facility] [address] [facility] [id number], [place] [address] 20 Sep, 2011 [facility] [place] [facility] [address] [id number], [place] [address] 07 Sep, 2011 [facility] [place] [facility] [address] [id number] [place] [address] 06 Dec, 2011 [facility] [address] [id number] [place] [address] 06 Dec, 2011 [facility] [place] [facility] [address] [id number] [place] [address] 05 Dec, 2011 [facility] [place] [facility] [address] [id number] [place] [address] 23 Nov, 2011 [facility] [place] [facility] [address] [id number] [place] [address] 17 Nov, 2011 [facility] [place] [facility] [address] [id number] [place] [address] Nov, [facility] [place] [facility] [address] [id number] [place] [address] Nov, [facility] [address] [id number] [place] [address] Nov, [facility] [address] [id number] [place] [address] Nov, [facility] [place] [facility] [address] [id number] [place] [address] Nov, [facility] [address] [id number] [place] [address] Nov, [facility] [place] [facility] [address] [id number] [place] [address] Oct, [facility] [place] [facility] [address] [id number] [place] [address] Oct, [facility] [place] [facility] [address] [id number] [place] [address] Oct, [facility] [place] [facility] [address] [id number] [place] [address] Oct, [facility] [place] [facility] [address] [id number] [place] [address] Oct, [facility] [place] [facility] [address] [id number] [place] [address] Oct, [facility] [place] [facility] [address] [id number] [place] [address] Oct, [facility] [place] [facility] [address] [id number] [place] [address] Sep, [facility] [place] [facility] [address] [id number] [place] [address] Sep, [facility] [address] [id number] [place] [address] August, [facility] [place] [facility] [address] [id number] [place] [address] August, [facility] [address] [id number] [place] [address] August, [facility] [address] [id number] [place] [address] August, [facility] [place] [facility] [address] [id number] [place] [address] Jul, [facility] [place] [facility] [address] [id number] [place] [address] Jul, [facility] [place] [facility] [address] [id number] [place] [address] Jul, [facility] [place] [facility] [address] [id number] [place] [address] Jul, [facility] [place] [facility] [address] [id number] [place] [address] Jul, [facility] [place] [facility] [address] [id number] [place] [address] Jul, [facility] [place] [facility] [address] [id number] [place] [address] Jul, [facility] [place] [facility] [address] [id number], [place] [address] Jul, [facility] [address] [id number] [place] [address] Jul, [facility] [place] [facility] [address] [id number] [place] [address] 23 Jun, 2011 [facility] [address] [facility] [id number] [place] [address] Jun, [facility] [place] [facility] [address] [id number] [place] [address] 15 Jun, 2011 [facility] [address] [id number] [place] [address] 14 Jun, 2011 [facility] [address] [facility] [id number] [place] [address] Jun, [facility] [address] [id number] [address] Jun, [facility] [place] [facility] [address] [facility] [id number] [place] [address] Jun, [facility] [address] [facility] [id number] [place] [address] May, [facility] [place] [facility] [address] [facility] [id number] [place] [address] 24 May, 2011 [facility] [address] [facility] [id number] [place] [address] 16 May, 2011 [facility] [place] [facility] [address] [facility] [id number], [place] [address] May, [facility] [place] [facility] [address] [id number] [place] [address] May, [facility] [place] [facility] [address] [id number], [place] [address] Apr, [facility] [place] [facility] [address] [facility] [id number], [place] [address] Apr, [facility] [place] [facility] [address] [id number] [place] [address] 13 Apr, 2011 [facility] [place] [facility] [address] [id number] [place] [address] Apr, [facility] [place] [facility] [address] [id number] [place] [address] Apr, [facility] [place] [facility] [address] [id number] [place] [address] Mar, [facility] [place] [facility] [address] [id number] [place] [address] Mar, [facility] [place] [facility] [address] [id number] [place] [address] Mar, [facility] [place] [facility] [address] [id number] [place] [address] Mar, [facility] [place] [facility] [address] [id number] [place] [address] Mar, [facility] [place] [facility] [address] [id number] [place] [address] Mar, [facility] [place] [facility] [address] [id number] [place] [address] Mar, [facility] [place] [facility] [address] [id number] [place] [address] Feb, [facility] [place] [facility] [address] [id number] [place] [address] Feb, [facility] [place] [facility] [address] [id number] [place] [address] Feb, [facility] [place] [facility] [address] [id number] [place] [address] Feb, [facility] [place] [facility] [address] [id number] [place] [address] 31 Jan, 2011 [facility] [place] [facility] [address] [id number], [place] [address] Jan, [facility] [address] [facility] [id number], [place] [address] Jan, [facility] [address] [facility] [id number], [place] [address] Jan, [facility] [id number], [place] [address] Nov, [facility] [address] [facility] [id number], [place] [address] Mar, [facility] [address] [facility] [id number], [place] [address] Mar, [facility] [address] [facility] [id number], [place] [address] Mar, [facility] [id number], [place] [address] Mar, [facility] [address] [id number], [place] [address] Mar, [facility] [id number], [place] [address] Mar, [facility] [address] [id number], [place] [address] Feb, [facility] [address] [id number], [place] [address] Feb, [facility] [address] [id number], [place] [address] Jan, [facility] [address] [facility] [id number], [place] [address] Jan, [facility] [id number], [place] [address] Jan, IMMUNIZATIONS No Known Immunizations SOCIAL HISTORY Never Assessed REASON FOR VISIT EMR-[facility] [place] PLAN OF CARE VITAL SIGNS MEDICATIONS Unknown [...] Surgical History Bladder surgery [facility] 03/2016 Surgical History Neurotransmitter placed 10/2017 Surgical History retninal repair 12/31/2017 Surgical History cataract surgery 2018 Surgical History cataract surgery 2019 Hospitalization History Surgeries Only Hospitalization History 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
--- OUTSIDE RECORDS SUMMARY | 2018-10-26 12:26 | XMS REPORT ---
Author Author Migration, Doctor Organization [facility] Address Unknown Phone Unavailable Care Team Providers Care Recordak Operator Name Role Phone Migration, Doctor Unavailable Unavailable PROBLEMS Type Condition ICD9-CM Code [id number] Code Onset Dates Condition Status SNOMED Code Problem Restless leg G25.81 Active 98831326 Problem Insomnia G47.00 Active 049380566 Problem Hypothyroid E03.9 Active 91797419 Problem Palpitations R00.2 Active 19729901 Problem Asthma J45.909 Active 861376651 Problem Chronic kidney disease, stage 4 (severe) N18.4 Active 122530849 Problem Depressed F32.9 Active 21631028 Problem Bipolar disorder, current episode manic without psychotic features F31.10 Active 489162648 Problem Generalized anxiety disorder F41.1 Active 97144982 Problem Anemia in chronic kidney disease D63.1 Active [id number] Problem Low back pain M54.5 Active 234365579 Problem Coronary artery disease involving cocopah coronary artery of cocopah heart, angina presence unspecified I25.10 Active 4011941060162 Problem Dysthymic disorder F34.1 Active 99372510 Problem Other seasonal allergic rhinitis J30.2 Active 536662646 Problem History of anemia Z86.2 Active 939928126 Problem Fibromyalgia M79.7 Active 636302595 Problem Hypokalemia E87.6 Active 67095900 Problem Vitamin D deficiency E55.9 Active 16088542 Problem Mixed stress and urge urinary incontinence N39.46 Active 939090197 Problem Chronic kidney disease, unspecified N18.9 Active 854025559 Problem Abnormal chest CT R93.8 Active 191131370 Problem Essential (primary) hypertension I10 Active 54279705 Problem Long-term use of high-risk medication Z79.899 Active 661554216 Problem Degenerative tear of medial meniscus of left knee M23.204 Active 653309137 Problem Primary osteoarthritis of left knee M17.12 Active 872369554 Problem Mood disorder F39 Active 08587842 Problem Chronic pain syndrome G89.4 Active 095537502 Problem History of colon polyps Z86.010 Active 292797149 Problem Perimenopausal vasomotor symptoms N95.1 Active 212281434 Problem Functional diarrhea K59.1 Active 33594634 Problem Asthma with acute exacerbation in adult J45.901 Active 838407939 Problem Stage 3 chronic kidney disease N18.3 Active 996144577 Problem Body mass index (BMI) of 40.0-44.9 in adult Z68.41 Active 920186207 Problem Seasonal allergic rhinitis due to pollen J30.1 Active 96413045 Problem Restless leg syndrome G25.81 Active 16627329 ALLERGIES No Information ENCOUNTERS Encounter Location Date Diagnosis [facility] [id number] [place] [address] Sep, [facility] [address] [address] August, [facility] [address] [address] August, [facility] [address] [address] Jul, Urinary tract infection without hematuria, site unspecified N39.0 [facility] [id number] [place] [address] Jul, [facility] [id number] [place] [address] Jul, [facility] [id number] [place] [address] Jul, Fibromyalgia M79.7 [facility] [id number] [place] [address] Jul, Acute pain of right shoulder M25.511 [facility] [facility] [address] [address] Jul, Acute pain of right shoulder M25.511 and Morbid obesity E66.01 [facility] [id number] [place] [address] Jun, [facility] [id number] [place] [address] 14 Jun, 2018 Generalized anxiety disorder F41.1 and Major depressive disorder, recurrent episode with anxious distress F33.9 [facility] [id number] [place] [address] 11 Jun, 2018 [facility] [facility] [id number] [place] [address] Jun, Fibromyalgia M79.7 [facility] [id number] [place] [address] 04 Jun, 2018 Acute pain of right shoulder M25.511 ; Acute pain of right hip M25.551 and Morbid obesity E66.01 [facility] [facility] [id number] [place] [address] 11 May, 2018 Burning with urination R30.0 ; Vaginal discharge N89.8 ; Chronic kidney disease, stage 4 (severe) N18.4 ; Body mass index (BMI) of 40.0-44.9 in adult Z68.41 and Morbid obesity E66.01 [facility] [id number] [place] [address] 07 May, 2018 Fibromyalgia M79.7 [facility] [id number] [place] [address] 06 May, 2018 Generalized anxiety disorder F41.1 and Major depressive disorder, recurrent episode with anxious distress F33.9 [facility] [id number] [place] [address] Apr, [facility] [id number] [place] [address] Apr, Fibromyalgia M79.7 [facility] [id number] [place] [address] Mar, Acute UTI N39.0 and Dysuria R30.0 [facility] [id number] [place] [address] Mar, Fibromyalgia M79.7 [facility] [id number] [place] [address] Feb, [facility] [id number] [place] [address] Feb, [facility] [id number] [place] [address] Feb, [facility] [id number] [place] [address] Feb, Fibromyalgia M79.7 [facility] [id number] [place] [address] 08 Feb, 2018 Complicated UTI (urinary tract infection) N39.0 [facility] [id number] [place] [address] Feb, [facility] [id number] [place] [address] Jan, Generalized anxiety disorder F41.1 and Major depressive disorder, recurrent episode with anxious distress F33.9 [facility] [id number] [place] [address] Jan, Acute conjunctivitis of left eye, unspecified acute conjunctivitis type H10.32 [facility] [id number] [place] [address] Jan, [facility] [id number] [place] [address] Jan, Acute non-recurrent maxillary sinusitis J01.00 ; Dysuria R30.0 ; Perimenopausal vasomotor symptoms N95.1 and Fibromyalgia M79.7 [facility] [id number] [place] [address] Dec, Vitamin D deficiency E55.9 [facility] [id number] [place] [address] Dec, Vitamin D deficiency E55.9 [place] [id number] [place] [address] Dec, Vitamin D deficiency E55.9 [facility] [id number] [place] [address] Dec, [facility] [id number] [place] [address] Dec, Fibromyalgia M79.7 [facility] [id number] [place] [address] Nov, [facility] [id number] [place] [address] Nov, [facility] [id number] [place] [address] Nov, [facility] [id number] [place] [address] Nov, Fibromyalgia M79.7 ; Vision changes H53.9 ; Chest wall pain R07.89 and Chronic pain syndrome G89.4 [facility] [id number] [place] [address] Nov, [facility] [id number] [place] [address] Nov, Rash of hands R21 [facility] [id number] [place] [address] Nov, Generalized anxiety disorder F41.1 and Major depressive disorder, recurrent episode with anxious distress F33.9 [facility] [id number] [place] [address] Nov, Fibromyalgia M79.7 [facility] [id number] [place] [address] Nov, Complicated UTI (urinary tract infection) N39.0 [facility] [id number] [place] [address] Oct, [facility] [id number] [place] [address] Oct, Generalized anxiety disorder F41.1 and Major depressive disorder, recurrent episode with anxious distress F33.9 [facility] [id number] [place] [address] Oct, [facility] [id number] [place] [address] Oct, Fibromyalgia M79.7 [facility] [id number] [place] [address] Sep, Restless leg syndrome G25.81 and Restless leg G25.81 [facility] [id number] [place] [address] Sep, [facility] [id number] [place] [address] Sep, Seasonal allergic rhinitis due to pollen J30.1 ; Screening for breast cancer Z12.31 ; Chest pain at rest R07.9 ; Restless leg syndrome G25.81 ; Essential (primary) hypertension I10 and Depressed F32.9 [facility] [id number] [place] [address] August, Fibromyalgia M79.7 [facility] [id number] [place] [address] August, [facility] [id number] [place] [address] August, [facility] [id number] [place] [address] August, Abnormal chest [address] R93.8 [facility] [id number] [place] [address] August, Generalized anxiety disorder F41.1 and Major depressive disorder, recurrent episode with anxious distress F33.9 [facility] [id number] [place] [address] August, Abnormal chest [address] R93.8 [facility] [id number] [place] [address] Jul, [facility] [id number] [place] [address] Jul, Chronic kidney disease, stage 4 (severe) N18.4 [facility] [id number] [place] [address] Jul, [facility] [id number] [place] [address] Jul, Restless leg G25.81 ; Mixed stress and urge urinary incontinence N39.46 and Fibromyalgia M79.7 [facility] [id number] [place] [address] Jul, Chronic kidney disease, stage 4 (severe) N18.4 [facility] [id number] [place] [address] Jun, Orthostatic hypotension I95.1 ; Chronic kidney disease, stage 4 (severe) N18.4 ; Chest wall discomfort R07.89 and Body mass index (BMI) of 40.0-44.9 in adult Z68.41 [facility] [id number] [place] [address] Jun, [facility] [id number] [place] [address] Jun, Orthostatic hypotension I95.1 [facility] [id number] [place] [address] Jun, [facility] [id number] [place] [address] Jun, Orthostatic hypotension I95.1 ; Dysuria R30.0 and Acute cystitis without hematuria N30.00 [facility] [id number] [place] [address] Jun, [place] [address] [address] Jun, Chronic kidney disease, stage 4 (severe) N18.4 [facility] [id number] [place] [address] Jun, Fibromyalgia M79.7 [facility] [id number] [place] [address] Jun, [facility] [id number] [place] [address] Jun, [facility] [id number] [place] [address] May, Abnormal chest [address] R93.8 and Stage 3 chronic kidney disease N18.3 [facility] [id number] [place] [address] May, Chronic kidney disease, stage 4 (severe) N18.4 [facility] [id number] [place] [address] May, Chronic kidney disease, stage 4 (severe) N18.4 [facility] [id number] [place] [address] May, Abnormal chest [address] R93.8 [facility] [id number] [place] [address] May, [facility] [id number] [place] [address] May, [facility] [id number] [place] [address] May, Generalized anxiety disorder F41.1 and Major depressive disorder, recurrent episode with anxious distress F33.9 [facility] [id number] [place] [address] May, Mood disorder F39 [facility] [id number] [place] [address] Apr, [facility] [id number] [address] Apr, Infected skin lesion L08.9 and Muscle strain of right shoulder region, initial encounter S46.911A [facility] [id number] [address] Apr, Generalized anxiety disorder F41.1 and Major depressive disorder, recurrent episode with anxious distress F33.9 [facility] [address] [address] Apr, [facility] [address] [place] [address] Apr, Recent urinary tract infection Z87.440 and Hypothyroid E03.9 [facility] [address] [address] Apr, Generalized anxiety disorder F41.1 and Major depressive disorder, recurrent episode with anxious distress F33.9 [facility] [address] [address] Apr, Recent urinary tract infection Z87.440 [facility] [address] [address] Mar, [facility] [id number] [address] Mar, Dysuria R30.0 ; Acute cystitis without hematuria N30.00 and BMI 40.0- 44.9, adult Z68.41 [facility] [id number] [address] Mar, [facility] [place] [id number] [place] [address] Mar, [facility] [id number] [address] Mar, Generalized anxiety disorder F41.1 and Major depressive disorder, recurrent episode with anxious distress F33.9 [facility] [id number] [place] [address] Feb, Conjunctivitis, bacterial H10.9 [facility] [id number] [place] [address] Feb, [facility] [id number] [place] [address] Feb, Conjunctivitis, bacterial H10.9 [facility] [id number] [place] [address] Feb, [facility] [address] [address] Feb, Dysuria R30.0 ; Acute cystitis N30.00 and BMI 40.0-44.9, adult Z68.41 [facility] [address] [address] Feb, [facility] [place] [id number] [place] [address] Feb, Generalized anxiety disorder F41.1 and Major depressive disorder, recurrent episode with anxious distress F33.9 [facility] [id number] [place] [address] Feb, Mood disorder F39 and BMI 40.0-44.9, adult Z68.41 [facility] [id number] [place] [address] Jan, [facility] [id number] [place] [address] Jan, [facility] [address] [address] Jan, Hypothyroid E03.9 [facility] [place] [id number] [place] [address] Jan, [facility] [id number] [place] [address] Jan, Chronic kidney disease, unspecified N18.9 ; Hypokalemia E87.6 ; Essential (primary) hypertension I10 ; Fibromyalgia M79.7 ; Coronary artery disease involving cocopah coronary artery of cocopah heart, angina presence unspecified I25.10 ; Hypothyroid E03.9 and Encounter for immunization Z23 [facility] [id number] [place] [address] Jan, Hypothyroid E03.9 [facility] [address] [address] Jan, [facility] [address] [address] Dec, Vitamin D deficiency E55.9 [facility] [address] [address] Dec, Primary osteoarthritis of left knee M17.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 [facility] [id number] [place] [address] 19 Dec, 2016 Fibromyalgia M79.7 [facility] [place] [id number] [place] [address] 18 Dec, 2016 Mood disorder F39 [facility] [id number] [place] [address] 13 Dec, 2016 [facility] [id number] [place] [address] 13 Dec, 2016 Generalized anxiety disorder F41.1 and Major depressive disorder, recurrent episode with anxious distress F33.9 [facility] [id number] [place] [address] 11 Dec, 2016 [facility] [id number] [place] [address] 08 Dec, 2016 Streptococcal meningitis G00.2 [place] [address] [address] Dec, Streptococcal meningitis G00.2 [facility] [address] [address] Dec, [facility] [id number] [place] [address] Dec, [facility] [address] [address] Dec, Streptococcal meningitis G00.2 [facility] [id number] [place] [address] Dec, Major depressive disorder, recurrent episode with anxious distress F33.9 [facility] [id number] [place] [address] Nov, Fever, unspecified fever cause R50.9 [facility] [id number] [place] [address] Nov, [facility] [facility] [id number] [place] [address] Nov, Hypothyroid E03.9 [facility] [id number] [place] [address] Nov, Generalized anxiety disorder F41.1 and Major depressive disorder, recurrent episode with anxious distress F33.9 [facility] [address], [place] [address] Nov, [facility] [id number] [place] [id number] Oct, Dental examination Z01.20 [facility] [id number] [place] [address] Oct, Generalized anxiety disorder F41.1 and Major depressive disorder, recurrent episode with anxious distress F33.9 [facility] [address] [address] Oct, Chronic kidney disease, stage 4 (severe) N18.4 [facility] [address], [place] [address] Oct, [facility] [id number] [place] [address] Oct, Fibromyalgia M79.7 [facility] [address], [place] [address] Oct, [facility] [id number] [place] [address] Oct, Generalized anxiety disorder F41.1 ; Major depressive disorder, recurrent episode with anxious distress F33.9 and Bipolar disorder, current episode manic without psychotic features F31.10 [facility] [id number] [place] [address] Sep, [facility] [id number] [place] [address] Sep, [facility] [id number] [place] [address] Sep, Vitamin D deficiency E55.9 [facility] [id number] [place] [address] Sep, Vitamin D deficiency E55.9 [facility] [address] [address] Sep, [place] [address], [place] [address] Sep, Chronic kidney disease, stage 4 (severe) N18.4 ; Hypothyroid E03.9 ; Restless leg G25.81 ; Fibromyalgia M79.7 ; Essential (primary) hypertension I10 ; Vitamin D deficiency E55.9 ; Dyspepsia R10.13 ; Anemia in chronic kidney disease D63.1 ; Chronic kidney disease, unspecified N18.9 ; Coronary artery disease involving cocopah coronary artery of cocopah heart, angina presence unspecified I25.10 ; Screening breast examination Z12.39 and Low back pain M54.5 [place] [address] [address] August, Generalized anxiety disorder F41.1 and Major depressive disorder, recurrent episode with anxious distress F33.9 [facility] [id number] [place] [address] August, Generalized anxiety disorder F41.1 and Major depressive disorder, recurrent episode with anxious distress F33.9 [facility] [place] [id number] [place] [address] August, Fibromyalgia M79.7 [facility] [id number] [place] [address] Jul, Generalized anxiety disorder F41.1 and Major depressive disorder, recurrent episode with anxious distress F33.9 [facility] [id number] [place] [id number] Jul, Fibromyalgia M79.7 [facility] [id number] [place] [id number] Jul, Generalized anxiety disorder F41.1 [facility] [id number] [place] [id number] May, [facility] [id number] [place] [phone] May, Hypothyroid E03.9 [facility] [id number] [address] May, Chronic kidney disease, stage 4 (severe) N18.4 ; Hypothyroid E03.9 ; Restless leg G25.81 ; Fibromyalgia M79.7 ; Essential (primary) hypertension I10 ; Vitamin D deficiency E55.9 ; Dyspepsia R10.13 ; Acute non-recurrent maxillary sinusitis J01.00 ; Anemia in chronic kidney disease D63.1 ; Chronic kidney disease, unspecified N18.9 and Coronary artery disease involving cocopah coronary artery of cocopah heart, angina presence unspecified I25.10 [facility] [id number] [place] [phone] May, Vitamin D deficiency, unspecified E55.9 [facility] [id number] [address] May, Generalized anxiety disorder F41.1 and Major depressive disorder, recurrent episode with anxious distress F33.9 [facility] [id number] [place] [id number] Apr, Pain in right knee M25.561 and Pain in left knee M25.562 [facility] [id number] [place] [id number] Apr, [facility] [place] [id number] [place] [phone] Apr, [facility] [id number] [place] [address] Apr, [facility] [id number] [place] [address] Mar, Generalized anxiety disorder F41.1 and Major depressive disorder, recurrent episode with anxious distress F33.9 [facility] [id number] [place] [address] Mar, Generalized anxiety disorder F41.1 and Major depressive disorder, recurrent episode with anxious distress F33.9 [facility] [id number] [place] [address] Mar, [facility] [id number] [place] [address] Mar, [facility] [id number] [address] Mar, [facility] [id number] [place] [address] Mar, Asthma J45.909 and Fibromyalgia M79.7 [facility] [id number] [address] Mar, Chronic kidney disease, stage 4 (severe) N18.4 ; Vitamin D deficiency E55.9 and Essential (primary) hypertension I10 [id number] [place] [address] Feb, [facility] [id number] [place] [address] Feb, Dysuria R30.0 ; Mixed stress and urge urinary incontinence N39.46 ; Fibromyalgia M79.7 and Chronic kidney disease, stage IV (severe) N18.4 [address] [address] [address] Feb, Chronic kidney disease, stage 4 (severe) N18.4 [address] [address] [address] Feb, Chronic kidney disease, stage 4 (severe) N18.4 [address] [address] [address] Feb, [place] [address] [address] Feb, Vitamin D deficiency, unspecified E55.9 [place] [facility] [id number] [place] [address] Jan, [place] [id number] [place] [address] Jan, [place] [id number] [place] [address] Dec, [place] [id number] [place] [address] Dec, Chronic kidney disease, stage 4 (severe) N18.4 [place] [id number] [place] [address] Dec, Dysthymic disorder F34.1 and Generalized anxiety disorder F41.1 [address] [address] [address] Dec, [facility] [id number] [place] [address] Dec, [facility] [address] [address] Dec, Dysthymic disorder F34.1 and Generalized anxiety disorder F41.1 [place] [address] [address] Dec, Dysuria R30.0 ; Chronic kidney disease, stage 4 (severe) N18.4 ; Hypertension I10 ; Dyspepsia R10.13 ; Yeast dermatitis B37.2 ; Palpitations R00.2 ; Hypothyroid E03.9 ; Functional diarrhea K59.1 and Other seasonal allergic rhinitis J30.2 [facility] [address] [address] Dec, [facility] [address] [address] Nov, Dysuria R30.0 and Stress incontinence N39.3 [place] [address] [address] Nov, [facility] [address] [address] Nov, [place] [address] [address] Nov, Osteoarthritis of knees, bilateral M17.0 [facility] [address] [address] Nov, Dysthymic disorder F34.1 and Generalized anxiety disorder F41.1 [place] [address] [address] Nov, [facility] [address] [address] Nov, [facility] [address] [address] Nov, Urgency of urination R39.15 [place] [id number] [place] [address] Nov, [facility] [id number] [place] [address] Nov, Chronic kidney disease, stage 4 (severe) N18.4 [facility] [id number] [place] [address] Oct, Hypertension I10 ; Coronary artery disease involving cocopah coronary artery of cocopah heart, angina presence unspecified I25.10 ; Palpitations R00.2 ; Hypothyroid E03.9 ; Right foot pain M79.671 ; Functional diarrhea K59.1 and Other seasonal allergic rhinitis J30.2 [place] [id number] [place] [address] Oct, Dysthymic disorder F34.1 and Generalized anxiety disorder F41.1 [facility] [id number] [place] [address] Sep, [facility] [id number] [place] [address] Sep, [facility] [facility] [id number] [place] [address] Sep, [facility] [id number] [place] [address] Sep, [facility] [facility] [id number] [place] [address] Sep, [facility] [id number] [place] [address] Sep, Dysthymic disorder F34.1 and Generalized anxiety disorder F41.1 [facility] [facility] [id number] [place] [address] Sep, Asthma with acute exacerbation in adult J45.901 ; Dysuria R30.0 ; Chronic kidney disease, stage 4 (severe) N18.4 and History of anemia Z86.2 [facility] [id number] [place] [address] Sep, Generalized anxiety disorder F41.1 and Dysthymic disorder F34.1 [facility] [id number] [place] [address] August, Screening breast examination Z12.39 and Acute recurrent maxillary sinusitis J01.01 [place] [id number] [place] [address] August, Osteoarthritis of knees, bilateral M17.0 [place] [address] [address] August, Chronic kidney disease, stage 4 (severe) N18.4 ; Acute non-recurrent maxillary sinusitis J01.00 ; Urinary problem R39.89 ; Bowel habit changes R19.4 ; Functional diarrhea K59.1 and History of colon polyps Z86.010 [place] [id number] [place] [address] Jul, Dysthymic disorder F34.1 and Generalized anxiety disorder F41.1 [place] [id number] [place] [address] Jul, [facility] [id number] [place] [address] 18 Jul, 2015 Dysthymic disorder F34.1 ; Generalized anxiety disorder F41.1 and [facility]CI use of drug Z79.899 [place] [id number] [place] [address] Jul, [place] [id number] [place] [address] 16 Jun, 2015 [place] [id number] [place] [address] Jun, [place] [address] [address] May, [place] [id number] [place] [address] May, Dysthymic disorder F34.1 and Generalized anxiety disorder F41.1 [place] [id number] [place] [address] Apr, Kidney disease N28.9 [place] [address] [address] Apr, Generalized anxiety disorder F41.1 and Dysthymic disorder F34.1 [place] [address] [address] Apr, Chronic kidney disease, stage 4 (severe) N18.4 [place] [id number] [place] [address] Apr, Generalized anxiety disorder F41.1 ; Major depression, recurrent F33.9 and Sleep disturbance G47.9 [place] [id number] [place] [address] Mar, Generalized anxiety disorder F41.1 and Dysthymic disorder F34.1 [place] [id number] [place] [address] Mar, Generalized anxiety disorder F41.1 ; Dysthymic disorder F34.1 and Insomnia G47.00 [place] [id number] [place] [address] Mar, [facility] [id number] [place] [address] Mar, [place] [address] [address] Mar, Osteoarthritis of knees, bilateral M17.0 [place] [id number] [place] [address] Mar, Hypertension I10 ; Hypothyroid E03.9 ; Dysthymic disorder F34.1 ; Chronic kidney disease, stage 4 (severe) N18.4 and Nausea & vomiting R11.2 [place] [address] [address] Mar, Generalized anxiety disorder F41.1 ; Dysthymic disorder F34.1 and Insomnia G47.[address] [address] Mar, Dehydration E86.0 ; Chronic kidney disease, stage 4 (severe) N18.4 and Nausea & vomiting R11.2 [facility] [address] [address] Mar, Gastroenteritis K52.[address] [address] Mar, [address] [address] Mar, [address] [address] Feb, Dysthymic disorder F34.1 and Generalized anxiety disorder F41.[address] [address] Jan, UTI (urinary tract infection) N39.0 ; Asthma J45.909 ; Coronary artery disease involving cocopah coronary artery of cocopah heart, angina presence unspecified I25.10 ; Hypertension I10 ; Hypothyroid E03.9 ; Vitamin D deficiency E55.9 ; Insomnia G47.00 ; Palpitations R00.2 ; Depressed F32.9 ; Restless leg G25.81 and Anxiety F41.[address] [address] Jan, Dysthymic disorder F34.1 and Generalized anxiety disorder F41.[address] [address] Jan, [facility] [id number] [place] [address] Dec, [address] [address] Dec, Alkalosis 276.3 ; Chronic kidney disease, Stage IV (severe) 585.4 ; Hyperpotassemia 276.7 ; Secondary hyperparathyroidism, renal 588.81 ; Proteinuria 791.0 ; Unspecified vitamin D deficiency 268.9 ; Anemia in chronic kidney disease 285.21 ; Other and unspecified hyperlipidemia 272.4 ; Hypertension, essential, benign 401.1 and Chronic kidney disease (CKD), stage III (moderate) 585.3 [id number] [place] [address] Dec, [address] [address] Dec, Depressive disorder, not elsewhere classified 311 and Generalized anxiety disorder 300.02 [address] [id number] [place] [address] Dec, [address] [id number] [place] [address] Dec, [id number] [place] [address] Nov, Depressive disorder, not elsewhere classified 311 and Generalized anxiety disorder 300.02 [id number] [place] [address] Nov, Arthritis of both knees 716.96 [id number] [place] [address] 07 Nov, 2014 PAF (paroxysmal atrial fibrillation) 427.31 ; CAD (coronary artery disease) 414.00 ; Chest pain 786.50 and Chronic kidney disease (CKD) stage G4/A1, severely decreased glomerular filtration rate (GFR) between 15-29 mL/min/1.73 square meter and albuminuria creatinine ratio less than 30 mg/g 585.[address] [place] [address] Oct, Coronary atherosclerosis of unspecified type of vessel, cocopah or graft 414.00 ; Chronic kidney disease, Stage IV (severe) 585.4 ; Hypertension 401.9 and Edema 782.3 [place] [id number] [place] [address] Oct, Depressive disorder, not elsewhere classified 311 and Generalized anxiety disorder 300.02 [place] [id number] [place] [address] Oct, Depressive disorder, not elsewhere classified 311 and Generalized anxiety disorder 300.02 [place] [address] [address] Oct, [place] [id number] [place] [address] Oct, [place] [id number] [place] [address] Sep, [place] [id number] [place] [address] Sep, Chronic kidney disease, Stage IV (severe) 585.4 [place] [id number] [place] [address] Sep, [place] [id number] [place] [address] Sep, Coronary atherosclerosis of unspecified type of vessel, cocopah or graft 414.00 ; Hypertension 401.9 ; Edema 782.3 and Hypothyroidism 244.9 [place] [id number] [place] [address] Sep, Coronary atherosclerosis of unspecified type of vessel, cocopah or graft 414.00 ; Hypertension 401.9 ; Fibromyalgia 729.1 ; Edema 782.3 ; Hypothyroidism 244.9 and Anemia 285.9 [place] [id number] [place] [address] Sep, Anxiety disorder, unspecified 300.00 and Depressive disorder, not elsewhere classified 311 [facility] [id number] [address] Sep, [facility] [address], [place] [address] August, Generalized anxiety disorder 300.02 [facility] [address], [place] [address] August, Closed fracture of lateral malleolus 824.2 [facility] [id number] [address] Jul, [facility] [id number] [place] [address] Jul, [facility] [address] [address] Jun, [facility] [address], [place] [address] Jun, [facility] [address] [address] Jun, [facility] [address], [place] [address] Jun, [facility] [address] [address] Jun, [facility] [address], [place] [address] Jun, [facility] [id number] [address] May, [facility] [address] [address] May, [facility] [id number] [address] May, [facility] [address] [address] 18 May, 2014 [facility] [place] [facility] [address] [id number] [place] [address] 16 May, 2014 [facility] [place] [facility] [address] [id number] [place] [address] 16 May, 2014 [facility] [place] [facility] [address] [id number] [place] [address] 13 May, 2014 [facility] [place] [facility] [address] [id number] [place] [address] 13 May, 2014 [facility] [place] [facility] [address] [id number] [place] [address] 10 May, 2014 [facility] [place] [facility] [address] [facility] [id number] [place] [address] 10 May, 2014 [facility] [place] [facility] [address] [facility] [id number] [place] [address] Apr, [facility] [place] [facility] [address] [facility] [id number] [place] [address] Apr, [facility] [place] [facility] [address] [facility] [id number] [place] [address] Mar, [facility] [place] [facility] [address] [facility] [id number] [place] [address] Mar, [facility] [place] [facility] [address] [facility] [id number] [place] [address] Mar, [facility] [place] [facility] [address] [id number] [address] 15 Mar, 2014 [facility] [place] [facility] [address] [id number] [place] [address] 15 Mar, 2014 [facility] [place] [facility] [address] [facility] [id number] [place] [address] 15 Mar, 2014 [facility] [place] [facility] [address] [facility] [id number] [place] [address] 15 Mar, 2014 [facility] [place] [facility] [address] [id number] [place] [address] Feb, [facility] [place] [facility] [address] [id number] [place] [address] Feb, [facility] [place] [facility] [address] [id number] [place] [address] Feb, [facility] [place] [facility] [address] [id number] [place] [address] Jan, [facility] [place] [facility] [address] [id number] [place] [address] Jan, [facility] [place] [facility] [address] [id number] [place] [address] Jan, [facility] [place] [facility] [address] [id number] [place] [address] Jan, [facility] [place] [facility] [address] [id number] [place] [address] Jan, [facility] [place] [facility] [address] [id number] [place] [address] Jan, [facility] [place] [facility] [address] [id number] [place] [address] Jan, [facility] [place] [facility] [address] [id number] [place] [address] Jan, [facility] [place] [facility] [address] [id number] [place] [address] Jan, [facility] [place] [facility] [address] [id number] [place] [address] Jan, [facility] [place] [facility] [address] [id number] [place] [address] Nov, [facility] [place] [facility] [address] [id number] [place] [address] Nov, [facility] [place] [facility] [address] [id number] [place] [address] Nov, [facility] [place] [facility] [address] [id number] [place] [address] Oct, [facility] [place] [facility] [address] [id number] [place] [address] Oct, [facility] [place] [facility] [address] [id number] [place] [address] Oct, [facility] [place] [facility] [address] [id number] [place] [address] Oct, [facility] [place] [facility] [address] [id number] [place] [address] Oct, [facility] [place] [facility] [address] [id number] [place] [address] Oct, [facility] [place] [facility] [address] [id number] [place] [address] Oct, [facility] [place] [facility] [address] [id number] [place] [address] Oct, [facility] [place] [facility] [address] [id number] [place] [address] Oct, [facility] [place] [facility] [address] [id number] [place] [address] Sep, [facility] [place] [facility] [address] [id number] [place] [address] Sep, [facility] [place] [facility] [address] [id number] [place] [address] Sep, [facility] [place] [facility] [address] [id number] [place] [address] Sep, [facility] [place] [facility] [address] [id number] [place] [address] Sep, [facility] [place] [facility] [address] [id number] [place] [address] Sep, [facility] [place] [facility] [address] [id number] [place] [address] Sep, [facility] [place] [facility] [address] [id number] [place] [address] Sep, [facility] [place] [facility] [address] [id number] [place] [address] Sep, [facility] [place] [facility] [address] [id number] [place] [address] August, [facility] [place] [facility] [address] [id number] [place] [address] August, [facility] [place] [facility] [address] [id number] [place] [address] August, [facility] [place] [facility] [address] [id number] [place] [address] August, [facility] [place] [facility] [address] [id number] [place] [address] August, [facility] [place] [facility] [address] [id number] [place] [address] August, [facility] [place] [facility] [address] [id number] [place] [address] Jul, [facility] [place] [facility] [address] [id number] [place] [address] Jul, [facility] [place] [facility] [address] [id number] [place] [address] Jul, [facility] [place] [facility] [address] [id number] [place] [address] Jul, [facility] [place] [facility] [address] [id number] [place] [address] Jul, [facility] [place] [facility] [address] [id number] [place] [address] Jul, [facility] [place] [facility] [address] [id number] [place] [address] Jun, [facility] [place] [facility] [address] [id number] [place] [address] Jun, [facility] [place] [facility] [address] [id number] [place] [address] May, [facility] [place] [facility] [address] [id number] [place] [address] May, [facility] [place] [facility] [address] [id number] [place] [address] May, [facility] [place] [facility] [address] [id number] [place] [address] May, [facility] [place] [facility] [address] [id number] [place] [address] Apr, [facility] [place] [facility] [address] [id number] [place] [address] Apr, [facility] [place] [facility] [address] [id number] [place] [address] Mar, [facility] [place] [facility] [address] [id number] [place] [address] Mar, [facility] [place] [facility] [address] [id number] [place] [address] Mar, [facility] [place] [facility] [address] [id number] [place] [address] Mar, [facility] [place] [facility] [address] [id number] [address] Mar, [facility] [place] [facility] [address] [id number] [place] [address] Mar, [facility] [place] [facility] [address] [id number] [place] [address] Feb, [facility] [place] [facility] [address] [id number] [place] [address] Feb, [facility] [place] [facility] [address] [id number][place] [address] 14 Feb, 2013 [facility] [place] [facility] [address] [id number] [place] [address] 14 Feb, 2013 [facility] [place] [facility] [address] [id number] [place] [address] 05 Feb, 2013 [facility] [place] [facility] [address] [facility] [id number] [place] [address] Feb, [facility] [place] [facility] [address] [id number] [place] [address] Jan, [facility] [place] [facility] [address] [id number] [place] [address] Jan, [facility] [place] [facility] [address] [id number] [place] [address] Jan, [facility] [place] [facility] [address] [facility] [id number] [place] [address] Jan, [facility] [place] [facility] [address] [id number] [place] [address] Jan, [facility] [place] [facility] [address] [facility] [id number] [place] [address] Jan, [facility] [place] [facility] [address] [facility] [id number] [place] [address] Dec, [facility] [place] [facility] [address] [id number] [place] [address] Dec, [facility] [place] [facility] [address] [id number], [place] [address] Nov, [facility] [place] [facility] [address] [id number] [place] [address] Nov, [facility] [place] [facility] [address] [facility] [id number] [place] [address] Oct, [facility] [place] [facility] [address] [facility] [id number] [place] [address] Oct, [facility] [place] [facility] [address] [id number] [place] [address] Oct, [facility] [place] [facility] [address] [id number] [place] [address] Oct, [facility] [place] [facility] [address] [id number] [place] [address] Oct, [facility] [place] [facility] [address] [id number] [place] [address] Oct, [facility] [place] [facility] [address] [id number] [place] [address] Sep, [facility] [place] [facility] [address] [id number] [place] [address] Sep, [facility] [place] [facility] [address] [id number] [place] [address] Sep, [facility] [place] [facility] [address] [id number] [place] [address] Sep, [facility] [place] [facility] [address] [id number] [place] [address] August, [facility] [place] [facility] [address] [id number] [place] [address] August, [facility] [place] [facility] [address] [id number] [place] [address] August, [facility] [place] [facility] [address] [id number] [place] [address] August, [facility] [place] [facility] [address] [id number] [place] [address] August, [facility] [place] [facility] [address] [id number] [place] [address] Jul, [facility] [place] [facility] [address] [id number] [place] [address] Jul, [facility] [place] [facility] [address] [id number] [place] [address] Jul, [facility] [address] [id number] [place] [address] Jul, [facility] [address] [id number] [place] [address] Jul, [facility] [address] [id number] [place] [address] Jul, [facility] [place] [facility] [address] [id number] [place] [address] Jul, [facility] [address] [id number] [place] [address] Jul, [facility] [address] [id number] [place] [address] Jul, [facility] [address] [id number] [place] [address] Jul, [facility] [address] [id number] [id number] Jun, [facility] [address] [id number] [place] [address] Jun, [facility] [address] [id number] [address] Jun, [facility] [place] [facility] [address] [id number], [place] [address] Jun, [facility] [place] [facility] [address] [id number], [place] [address] Jun, [facility] [place] [facility] [address] [id number] [place] [address] May, [facility] [place] [facility] [address] [id number], [place] [address] May, [facility] [place] [facility] [address] [id number], [place] [address] May, [facility] [place] [facility] [address] [id number] [place] [address] Apr, [facility] [address] [id number] [place] [address] Apr, [facility] [place] [facility] [address] [id number] [place] [address] Apr, [facility] [address] [id number] [place] [address] Apr, [facility] [place] [facility] [address] [id number] [place] [address] Apr, [facility] [address] [id number] [place] [address] Apr, [facility] [place] [facility] [address] [id number] [place] [address] Mar, [facility] [address] [id number] [place] [address] Mar, [facility] [place] [facility] [address] [id number] [place] [address] Mar, [facility] [address] [id number] [place] [address] Mar, [facility] [place] [facility] [address] [facility] [id number] [place] [address] Feb, [facility] [place] [facility] [address] [id number] [place] [address] Feb, [facility] [place] [facility] [address] [id number] [place] [address] Feb, [facility] [place] [facility] [address] [id number] [place] [address] Feb, [facility] [place] [facility] [address] [id number] [place] [address] Feb, [facility] [place] [facility] [address] [facility] [id number] [place] [address] Feb, [facility] [place] [facility] [address] [id number] [place] [address] Feb, [facility] [place] [facility] [address] [id number] [place] [address] Feb, [facility] [place] [facility] [address] [id number] [place] [address] Feb, [facility] [place] [facility] [address] [id number] [place] [address] Feb, [facility] [place] [facility] [address] [id number] [place] [address] Feb, [facility] [place] [facility] [address] [id number] [place] [address] Feb, [facility] [place] [facility] [address] [id number] [place] [address] Feb, [facility] [place] [facility] [address] [id number] [place] [address] Feb, [facility] [place] [facility] [address] [id number] [place] [address] Feb, [facility] [place] [facility] [address] [id number] [place] [address] Feb, [facility] [place] [facility] [address] [facility] [id number] [place] [address] Jan, [facility] [place] [facility] [address] [id number] [place] [address] Jan, [facility] [place] [facility] [address] [id number] [place] [address] Jan, [facility] [place] [facility] [address] [id number] [place] [address] Jan, [facility] [place] [facility] [address] [id number] [place] [address] Jan, [facility] [place] [facility] [address] [id number] [place] [address] Jan, [facility] [place] [facility] [address] [id number] [place] [address] 25 Jan, 2012 [facility] [place] [facility] [address] [id number] [place] [address] 16 Jan, 2012 [facility] [place] [facility] [address] [id number] [place] [address] 16 Jan, 2012 [facility] [place] [facility] [address] [id number] [place] [address] 15 Jan, 2012 [facility] [place] [facility] [address] [id number] [place] [address] 15 Jan, 2012 [facility] [place] [facility] [address] [id number] [place] [address] Jan, [facility] [place] [facility] [address] [id number] [place] [address] 26 Sep, 2011 [facility] [place] [facility] [address] [id number], [place] [address] 26 Sep, 2011 [facility] [place] [facility] [address] [id number] [place] [address] 24 Sep, 2011 [facility] [place] [facility] [address] [id number] [place] [address] 23 Sep, 2011 [facility] [place] [facility] [address] [id number], [place] [address] 22 Sep, 2011 [facility] [place] [facility] [address] [id number], [place] [address] 21 Sep, 2011 [facility] [place] [facility] [address] [id number] [place] [address] 20 Sep, 2011 [facility] [place] [facility] [address] [facility] [id number], [place] [address] 20 Sep, 2011 [facility] [place] [facility] [address] [id number], [place] [address] 07 Sep, 2011 [facility] [place] [facility] [address] [id number] [place] [address] 06 Dec, 2011 [facility] [address] [id number] [place] [address] 06 Dec, 2011 [facility] [place] [facility] [address] [id number] [place] [address] 05 Dec, 2011 [facility] [place] [facility] [address] [id number] [place] [address] 23 Nov, 2011 [facility] [place] [facility] [address] [id number] [place] [address] 17 Nov, 2011 [facility] [place] [facility] [address] [id number] [place] [address] Nov, [facility] [place] [facility] [address] [id number] [place] [address] Nov, [facility] [address] [id number] [place] [address] Nov, [facility] [address] [id number] [place] [address] Nov, [facility] [place] [facility] [address] [id number] [place] [address] Nov, [facility] [address] [id number] [place] [address] Nov, [facility] [place] [facility] [address] [id number] [place] [address] Oct, [facility] [place] [facility] [address] [id number] [place] [address] Oct, [facility] [place] [facility] [address] [id number] [place] [address] Oct, [facility] [place] [facility] [address] [id number] [place] [address] Oct, [facility] [place] [facility] [address] [id number] [place] [address] Oct, [facility] [place] [facility] [address] [id number] [place] [address] Oct, [facility] [place] [facility] [address] [id number] [place] [address] Oct, [facility] [place] [facility] [address] [id number] [place] [address] Sep, [facility] [place] [facility] [address] [id number] [place] [address] Sep, [facility] [address] [id number] [place] [address] August, [facility] [place] [facility] [address] [id number] [place] [address] August, [facility] [address] [id number] [place] [address] August, [facility] [address] [id number] [place] [address] August, [facility] [place] [facility] [address] [id number] [place] [address] Jul, [facility] [place] [facility] [address] [id number] [place] [address] Jul, [facility] [place] [facility] [address] [id number] [place] [address] Jul, [facility] [place] [facility] [address] [id number] [place] [address] Jul, [facility] [place] [facility] [address] [id number] [place] [address] Jul, [facility] [place] [facility] [address] [id number] [place] [address] Jul, [facility] [place] [facility] [address] [id number] [place] [address] Jul, [facility] [place] [facility] [address] [id number], [place] [address] Jul, [facility] [address] [id number] [place] [address] Jul, [facility] [place] [facility] [address] [id number] [place] [address] 23 Jun, 2011 [facility] [address] [facility] [id number] [place] [address] Jun, [facility] [place] [facility] [address] [id number] [place] [address] 15 Jun, 2011 [facility] [address] [id number] [place] [address] 14 Jun, 2011 [facility] [address] [facility] [id number] [place] [address] Jun, [facility] [address] [id number] [address] Jun, [facility] [place] [facility] [address] [facility] [id number] [place] [address] Jun, [facility] [address] [facility] [id number] [place] [address] May, [facility] [place] [facility] [address] [facility] [id number] [place] [address] 24 May, 2011 [facility] [address] [facility] [id number] [place] [address] 16 May, 2011 [facility] [place] [facility] [address] [facility] [id number], [place] [address] May, [facility] [place] [facility] [address] [id number] [place] [address] May, [facility] [place] [facility] [address] [id number], [place] [address] Apr, [facility] [place] [facility] [address] [facility] [id number], [place] [address] Apr, [facility] [place] [facility] [address] [id number] [place] [address] 13 Apr, 2011 [facility] [place] [facility] [address] [id number] [place] [address] Apr, [facility] [place] [facility] [address] [id number] [place] [address] Apr, [facility] [place] [facility] [address] [id number] [place] [address] Mar, [facility] [place] [facility] [address] [id number] [place] [address] Mar, [facility] [place] [facility] [address] [id number] [place] [address] Mar, [facility] [place] [facility] [address] [id number] [place] [address] Mar, [facility] [place] [facility] [address] [id number] [place] [address] Mar, [facility] [place] [facility] [address] [id number] [place] [address] Mar, [facility] [place] [facility] [address] [id number] [place] [address] Mar, [facility] [place] [facility] [address] [id number] [place] [address] Feb, [facility] [place] [facility] [address] [id number] [place] [address] Feb, [facility] [place] [facility] [address] [id number] [place] [address] Feb, [facility] [place] [facility] [address] [id number] [place] [address] Feb, [facility] [place] [facility] [address] [id number] [place] [address] 31 Jan, 2011 [facility] [place] [facility] [address] [id number], [place] [address] Jan, [facility] [address] [facility] [id number], [place] [address] Jan, [facility] [address] [facility] [id number], [place] [address] Jan, [facility] [id number], [place] [address] Nov, [facility] [address] [facility] [id number], [place] [address] Mar, [facility] [address] [facility] [id number], [place] [address] Mar, [facility] [address] [facility] [id number], [place] [address] Mar, [facility] [id number], [place] [address] Mar, [facility] [address] [id number] [address] Mar, [facility] [id number], [place] [address] Mar, [facility] [address] [id number], [place] [address] Feb, [facility] [address] [id number], [place] [address] Feb, [facility] [address] [id number], [place] [address] Jan, [facility] [address] [facility] [id number], [place] [address] Jan, [facility] [id number], [place] [address] Jan, IMMUNIZATIONS No Known Immunizations SOCIAL HISTORY Never Assessed [place] [place] VITAL SIGNS MEDICATIONS Unknown [...] [place] 03/2016 Surgical History 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
--- OUTSIDE RECORDS SUMMARY | 2018-10-26 12:27 | XMS REPORT ---
Author Author Migration, Doctor Organization [facility] Address Unknown Phone Unavailable Care Team Providers Care Inter Com Installer Name Role Phone Migration, Doctor Unavailable Unavailable PROBLEMS Type Condition ICD9-CM Code TBO51-XM Code Onset Dates Condition Status SNOMED Code Problem Restless leg G25.81 Active 84901275 Problem Insomnia G47.00 Active 049292967 Problem Hypothyroid E03.9 Active 96628228 Problem Palpitations R00.2 Active 53486878 Problem Asthma J45.909 Active 585483744 Problem Chronic kidney disease, stage 4 (severe) N18.4 Active 014848907 Problem Depressed F32.9 Active 76554896 Problem Bipolar disorder, current episode manic without psychotic features F31.10 Active 756721899 Problem Generalized anxiety disorder F41.1 Active 13565509 Problem Anemia in chronic kidney disease D63.1 Active 762843100531420 Problem Low back pain M54.5 Active 421619918 Problem Coronary artery disease involving little river coronary artery of little river heart, angina presence unspecified I25.10 Active 2503426543931 Problem Dysthymic disorder F34.1 Active 67960462 Problem Other seasonal allergic rhinitis J30.2 Active 105179739 Problem History of anemia Z86.2 Active 040315309 Problem Fibromyalgia M79.7 Active 212440023 Problem Hypokalemia E87.6 Active 16028307 Problem Vitamin D deficiency E55.9 Active 97865766 Problem Mixed stress and urge urinary incontinence N39.46 Active 420228134 Problem Chronic kidney disease, unspecified N18.9 Active 613468446 Problem Abnormal chest CT R93.8 Active 473403780 Problem Essential (primary) hypertension I10 Active 17773300 Problem Long-term use of high-risk medication Z79.899 Active 156385711 Problem Degenerative tear of medial meniscus of left knee M23.204 Active 415177278 Problem Primary osteoarthritis of left knee M17.12 Active 403670640 Problem Mood disorder F39 Active 61571484 Problem Chronic pain syndrome G89.4 Active 979043674 Problem History of colon polyps Z86.010 Active 339924155 Problem Perimenopausal vasomotor symptoms N95.1 Active 146442927 Problem Functional diarrhea K59.1 Active 38023522 Problem Asthma with acute exacerbation in adult J45.901 Active 327559582 Problem Stage 3 chronic kidney disease N18.3 Active 257262824 Problem Body mass index (BMI) of 40.0-44.9 in adult Z68.41 Active 364888136 Problem Seasonal allergic rhinitis due to pollen J30.1 Active 89977972 Problem Restless leg syndrome G25.81 Active 41539704 ALLERGIES No Information ENCOUNTERS Encounter Location Date Diagnosis [facility] [id number] [place] [address] August, [place] [address] [address] Jul, [place] [address] [address] Jul, [place] [address] [address] Jul, [facility] [address] [address] Jul, [place] [address] [address] Jul, Fibromyalgia M79.7 [facility] [address] [address] Jul, Acute pain of right shoulder M25.511 [facility] [id number] [place] [address] Jul, Acute pain of right shoulder M25.511 and Morbid obesity E66.01 [facility] [address] [address] Jun, [facility] [address] [address] 14 Jun, 2018 Generalized anxiety disorder F41.1 and Major depressive disorder, recurrent episode with anxious distress F33.9 [place] [id number] [place] [address] 11 Jun, 2018 [facility] [address] [address] 06 Jun, 2018 Fibromyalgia M79.7 [facility] [id number] [place] [address] 04 Jun, 2018 Acute pain of right shoulder M25.511 ; Acute pain of right hip M25.551 and Morbid obesity E66.01 [place] [id number] [place] [address] 11 May, 2018 Burning with urination R30.0 ; Vaginal discharge N89.8 ; Chronic kidney disease, stage 4 (severe) N18.4 ; Body mass index (BMI) of 40.0-44.9 in adult Z68.41 and Morbid obesity E66.01 [place] [id number] [place] [address] 07 May, 2018 Fibromyalgia M79.7 [place] [id number] [place] [address] 06 May, 2018 Generalized anxiety disorder F41.1 and Major depressive disorder, recurrent episode with anxious distress F33.9 [place] [id number] [place] [address] Apr, [place] [id number] [place] [address] Apr, Fibromyalgia M79.7 [facility] [id number] [place] [address] 14 Mar, 2018 Acute UTI N39.0 and Dysuria R30.0 [place] [id number] [place] [address] 10 Mar, 2018 Fibromyalgia M79.7 [place] [id number] [place] [address] Feb, [place] [address] [address] 14 Feb, 2018 [facility] [id number] [place] [address] Feb, [facility] [address], [place] [address] Feb, Fibromyalgia M79.7 [facility] [id number] [place] [address] 08 Feb, 2018 Complicated UTI (urinary tract infection) N39.0 [facility] [id number] [place] [address] Feb, [facility] [id number] [place] [address] Jan, Generalized anxiety disorder F41.1 and Major depressive disorder, recurrent episode with anxious distress F33.9 [facility] [id number] [place] [address] Jan, Acute conjunctivitis of left eye, unspecified acute conjunctivitis type H10.32 [facility] [address] [address] Jan, [facility] [address], [place] [address] Jan, Acute non-recurrent maxillary sinusitis J01.00 ; Dysuria R30.0 ; Perimenopausal vasomotor symptoms N95.1 and Fibromyalgia M79.7 [facility] [address], [place] [address] 28 Dec, 2017 Vitamin D deficiency E55.9 [facility] [id number] [place] [address] 27 Dec, 2017 Vitamin D deficiency E55.9 [facility] [address], [place] [address] 24 Dec, 2017 Vitamin D deficiency E55.9 [facility] [address], [place] [address] Dec, [facility] [id number] [place] [address] Dec, Fibromyalgia M79.7 [facility] [address], [place] [address] Nov, [facility] [id number] [place] [address] Nov, [facility] [id number] [place] [address] Nov, [facility] [id number] [place] [address] Nov, Fibromyalgia M79.7 ; Vision changes H53.9 ; Chest wall pain R07.89 and Chronic pain syndrome G89.4 [place] [id number] [place] [address] Nov, [facility] [id number] [place] [address] Nov, Rash of hands R21 [facility] [id number] [place] [address] Nov, Generalized anxiety disorder F41.1 and Major depressive disorder, recurrent episode with anxious distress F33.9 [facility] [id number] [place] [address] Nov, Fibromyalgia M79.7 [facility] [address], [place] [address] Nov, Complicated UTI (urinary tract infection) N39.0 [facility] [id number] [place] [address] Oct, [facility] [address], [place] [address] Oct, Generalized anxiety disorder F41.1 and Major depressive disorder, recurrent episode with anxious distress F33.9 [facility] [address] [place] [address] Oct, [facility] [id number] [place] [address] Oct, Fibromyalgia M79.7 [facility] [id number] [place] [address] Sep, Restless leg syndrome G25.81 and Restless leg G25.81 [facility] [id number] [place] [address] Sep, [facility] [address] [address] Sep, Seasonal allergic rhinitis due to pollen J30.1 ; Screening for breast cancer Z12.31 ; Chest pain at rest R07.9 ; Restless leg syndrome G25.81 ; Essential (primary) hypertension I10 and Depressed F32.9 [facility] [id number] [place] [address] August, Fibromyalgia M79.7 [facility] [id number] [place] [address] August, [facility] [id number] [place] [address] August, [facility] [id number] [place] [address] August, Abnormal chest [address] R93.8 [facility] [address] [place] [address] August, Generalized anxiety disorder F41.1 and Major depressive disorder, recurrent episode with anxious distress F33.9 [facility] [id number] [place] [address] August, Abnormal chest [address] R93.8 [facility] [id number] [place] [address] Jul, [facility] [address], [place] [address] Jul, Chronic kidney disease, stage 4 (severe) N18.4 [facility] [id number] [place] [address] Jul, [facility] [id number] [place] [address] Jul, Restless leg G25.81 ; Mixed stress and urge urinary incontinence N39.46 and Fibromyalgia M79.7 [place] [id number] [place] [address] Jul, Chronic kidney disease, stage 4 (severe) N18.4 [place] [id number] [place] [address] Jun, Orthostatic hypotension I95.1 ; Chronic kidney disease, stage 4 (severe) N18.4 ; Chest wall discomfort R07.89 and Body mass index (BMI) of 40.0-44.9 in adult Z68.41 [place] [id number] [place] [address] Jun, [place] [id number] [place] [address] Jun, Orthostatic hypotension I95.1 [place] [id number] [place] [address] Jun, [facility] [id number] [place] [address] Jun, Orthostatic hypotension I95.1 ; Dysuria R30.0 and Acute cystitis without hematuria N30.00 [facility] [id number] [place] [address] Jun, [facility] [id number] [place] [address] Jun, Chronic kidney disease, stage 4 (severe) N18.4 [place] [id number] [place] [address] Jun, Fibromyalgia M79.7 [facility] [id number] [place] [address] Jun, [facility] [id number] [place] [address] Jun, [facility] [id number] [place] [address] May, Ab[address] chest [address] R93.8 and Stage 3 chronic kidney disease N18.3 [facility] [id number] [place] [address] May, Chronic kidney disease, stage 4 (severe) N18.4 [facility] [id number] [place] [address] May, Chronic kidney disease, stage 4 (severe) N18.4 [facility] [id number] [place] [address] May, Abnormal chest [address] R93.8 [facility] [id number] [place] [address] May, [facility] [id number] [place] [address] May, [facility] [id number] [place] [address] May, Generalized anxiety disorder F41.1 and Major depressive disorder, recurrent episode with anxious distress F33.9 [facility] [id number] [place] [address] May, Mood disorder F39 [facility] [id number] [place] [address] Apr, [facility] [id number] [place] [address] Apr, Infected skin lesion L08.9 and Muscle strain of right shoulder region, initial encounter S46.911A [place] [id number] [place] [address] Apr, Generalized anxiety disorder F41.1 and Major depressive disorder, recurrent episode with anxious distress F33.9 [facility] [id number] [place] [address] Apr, [place] [id number] [place] [address] Apr, Recent urinary tract infection Z87.440 and Hypothyroid E03.9 [place] [id number] [place] [address] Apr, Generalized anxiety disorder F41.1 and Major depressive disorder, recurrent episode with anxious distress F33.9 [place] [id number] [place] [address] Apr, Recent urinary tract infection Z87.440 [place] [id number] [place] [address] Mar, [facility] [id number] [place] [address] Mar, Dysuria R30.0 ; Acute cystitis without hematuria N30.00 and BMI 40.0- 44.9, adult Z68.41 [place] [address] [place] [address] Mar, [facility] [id number] [place] [address] Mar, [place] [id number] [place] [address] Mar, Generalized anxiety disorder F41.1 and Major depressive disorder, recurrent episode with anxious distress F33.9 [facility] [id number] [place] [address] Feb, Conjunctivitis, bacterial H10.9 [facility] [id number] [place] [address] Feb, [facility] [id number] [place] [address] Feb, Conjunctivitis, bacterial H10.9 [facility] [id number] [place] [address] Feb, [facility] [address] [address] Feb, Dysuria R30.0 ; Acute cystitis N30.00 and BMI 40.0-44.9, adult Z68.41 [place] [address] [address] Feb, [place] [address] [address] Feb, Generalized anxiety disorder F41.1 and Major depressive disorder, recurrent episode with anxious distress F33.9 [place] [id number] [place] [address] Feb, Mood disorder F39 and BMI 40.0-44.9, adult Z68.41 [place] [id number] [place] [address] Jan, [place] [id number] [place] [address] Jan, [place] [id number] [place] [address] Jan, Hypothyroid E03.9 [place] [address] [address] Jan, [place] [id number] [place] [address] Jan, Chronic kidney disease, unspecified N18.9 ; Hypokalemia E87.6 ; Essential (primary) hypertension I10 ; Fibromyalgia M79.7 ; Coronary artery disease involving [place] river coronary artery of [place] river heart, angina presence unspecified I25.10 ; Hypothyroid E03.9 and Encounter for immunization Z23 [facility] [id number] [place] [address] 04 Jan, 2017 Hypothyroid E03.9 [facility] [id number] [place] [address] Jan, [place] [id number] [place] [address] 28 Dec, 2016 Vitamin D deficiency E55.9 [place] [id number] [place] [address] 28 Dec, 2016 Primary osteoarthritis of left knee M17.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 [place] [id number] [place] [address] 19 Dec, 2016 Fibromyalgia M79.7 [facility] [id number] [place] [address] 18 Dec, 2016 Mood disorder F39 [place] [id number] [place] [address] 13 Dec, 2016 [place] [id number] [place] [address] 13 Dec, 2016 Generalized anxiety disorder F41.1 and Major depressive disorder, recurrent episode with anxious distress F33.9 [facility] [id number] [place] [address] 11 Dec, 2016 [place] [id number] [place] [address] 08 Dec, 2016 Streptococcal meningitis G00.2 [place] [id number] [place] [address] 07 Dec, 2016 Streptococcal meningitis G00.2 [place] [id number] [place] [address] 07 Dec, 2016 [facility] [id number] [place] [address] Dec, Streptococcal meningitis G00.2 [facility] [id number] [place] [address] Dec, [facility] [id number] [place] [address] Dec, Major depressive disorder, recurrent episode with anxious distress F33.9 [facility] [id number] [place] [address] Nov, Fever, unspecified fever cause R50.9 [place] [address] [address] Nov, [place] [address] [address] Nov, Hypothyroid E03.9 [place] [id number] [place] [address] Nov, Generalized anxiety disorder F41.1 and Major depressive disorder, recurrent episode with anxious distress F33.9 [place] [id number] [place] [address] Nov, [facility] [id number] [place] [id number] Oct, Dental examination Z01.20 [facility] [id number] [place] [address] Oct, Generalized anxiety disorder F41.1 and Major depressive disorder, recurrent episode with anxious distress F33.9 [facility] [id number] [place] [address] Oct, Chronic kidney disease, stage 4 (severe) N18.4 [facility] [id number] [place] [address] Oct, [facility] [address] [address] Oct, Fibromyalgia M79.7 [place] [address], [place] [address] Oct, [place] [address], [place] [address] Oct, Generalized anxiety disorder F41.1 ; Major depressive disorder, recurrent episode with anxious distress F33.9 and Bipolar disorder, current episode manic without psychotic features F31.10 [place] [address], [place] [address] Sep, [place] [id number] [place] [address] Sep, [place] [id number] [place] [address] Sep, Vitamin D deficiency E55.9 [place] [id number] [place] [address] Sep, Vitamin D deficiency E55.9 [place] [address], [place] [address] Sep, [place] [address], [place] [address] Sep, Chronic kidney disease, stage 4 (severe) N18.4 ; Hypothyroid E03.9 ; Restless leg G25.81 ; Fibromyalgia M79.7 ; Essential (primary) hypertension I10 ; Vitamin D deficiency E55.9 ; Dyspepsia R10.13 ; Anemia in chronic kidney disease D63.1 ; Chronic kidney disease, unspecified N18.9 ; Coronary artery disease involving [place] river coronary artery of [place] river heart, angina presence unspecified I25.10 ; Screening breast examination Z12.39 and Low back pain M54.5 [place] [address], [place] [address] August, Generalized anxiety disorder F41.1 and Major depressive disorder, recurrent episode with anxious distress F33.9 [place] [id number] [address] August, Generalized anxiety disorder F41.1 and Major depressive disorder, recurrent episode with anxious distress F33.9 [place] [address] [place] [address] August, Fibromyalgia M79.7 [place] [id number] [place] [address] Jul, Generalized anxiety disorder F41.1 and Major depressive disorder, recurrent episode with anxious distress F33.9 [place] [id number] [place] [address] Jul, Fibromyalgia M79.7 [place] [id number] [place] [address] Jul, Generalized anxiety disorder F41.1 [place] [id number] [place] [address] May, [place] [id number] [place] [address] May, Hypothyroid E03.9 [id number] [place] [address] May, Chronic kidney disease, stage 4 (severe) N18.4 ; Hypothyroid E03.9 ; Restless leg G25.81 ; Fibromyalgia M79.7 ; Essential (primary) hypertension I10 ; Vitamin D deficiency E55.9 ; Dyspepsia R10.13 ; Acute non-recurrent maxillary sinusitis J01.00 ; Anemia in chronic kidney disease D63.1 ; Chronic kidney disease, unspecified N18.9 and Coronary artery disease involving [place] coronary artery of [place] heart, angina presence unspecified I25.10 [place] [id number] [place] [phone] May, Vitamin D deficiency, unspecified E55.9 [place] [id number] [place] [phone] May, Generalized anxiety disorder F41.1 and Major depressive disorder, recurrent episode with anxious distress F33.9 [facility] [id number] [place] [phone] Apr, Pain in right knee M25.561 and Pain in left knee M25.562 [facility] [id number] [place] [phone] Apr, [facility] [id number] [place] [phone] Apr, [facility] [id number] [place] [phone] Apr, [place] [address] [id number] [place] [address] Mar, Generalized anxiety disorder F41.1 and Major depressive disorder, recurrent episode with anxious distress F33.9 [facility] [facility] [id number] [place] [address] Mar, Generalized anxiety disorder F41.1 and Major depressive disorder, recurrent episode with anxious distress F33.9 [place] [id number] [place] [address] Mar, [facility] [id number] [place] [address] Mar, [place] [id number] [place] [address] Mar, [facility] [id number] [place] [address] Mar, Asthma J45.909 and Fibromyalgia M79.7 [place] [address] [address] Mar, Chronic kidney disease, stage 4 (severe) N18.4 ; Vitamin D deficiency E55.9 and Essential (primary) hypertension I10 [facility] [facility] [id number] [place] [address] Feb, [facility] [id number] [place] [address] Feb, Dysuria R30.0 ; Mixed stress and urge urinary incontinence N39.46 ; Fibromyalgia M79.7 and Chronic kidney disease, stage IV (severe) N18.4 [facility] [id number] [place] [address] Feb, Chronic kidney disease, stage 4 (severe) N18.4 [facility] [id number] [place] [address] Feb, Chronic kidney disease, stage 4 (severe) N18.4 [facility] [id number] [place] [address] Feb, [facility] [id number] [place] [address] Feb, Vitamin D deficiency, unspecified E55.9 [facility] [id number] [place] [address] Jan, [facility] [id number] [place] [address] Jan, [facility] [id number] [place] [address] Dec, [facility] [id number] [place] [address] Dec, Chronic kidney disease, stage 4 (severe) N18.4 [facility] [id number] [place] [address] Dec, Dysthymic disorder F34.1 and Generalized anxiety disorder F41.1 [facility] [id number] [place] [address] 27 Dec, 2015 [facility] [id number] [place] [address] Dec, [facility] [id number] [place] [address] Dec, Dysthymic disorder F34.1 and Generalized anxiety disorder F41.1 [facility] [address] [address] Dec, Dysuria R30.0 ; Chronic kidney disease, stage 4 (severe) N18.4 ; Hypertension I10 ; Dyspepsia R10.13 ; Yeast dermatitis B37.2 ; Palpitations R00.2 ; Hypothyroid E03.9 ; Functional diarrhea K59.1 and Other seasonal allergic rhinitis J30.2 [facility] [address] [address] Dec, [facility] [address] [address] Nov, Dysuria R30.0 and Stress incontinence N39.3 [facility] [address] [address] Nov, [facility] [address] [address] Nov, [facility] [address] [address] Nov, Osteoarthritis of knees, bilateral M17.0 [facility] [facility] [address] [address] Nov, Dysthymic disorder F34.1 and Generalized anxiety disorder F41.1 [facility] [id number] [place] [address] Nov, [facility] [address] [address] Nov, [facility] [address] [address] Nov, Urgency of urination R39.15 [facility] [address] [address] Nov, [facility] [id number] [place] [address] Nov, Chronic kidney disease, stage 4 (severe) N18.4 [facility] [address] [address] Oct, Hypertension I10 ; Coronary artery disease involving little river coronary artery of little river heart, angina presence unspecified I25.10 ; Palpitations R00.2 ; Hypothyroid E03.9 ; Right foot pain M79.671 ; Functional diarrhea K59.1 and Other seasonal allergic rhinitis J30.2 [facility] [address] [address] Oct, Dysthymic disorder F34.1 and Generalized anxiety disorder F41.1 [facility] [address] [address] Sep, [facility] [address] [address] Sep, [facility] [address] [address] Sep, [facility] [address] [address] Sep, [facility] [id number] [place] [address] Sep, [facility] [address] [address] Sep, Dysthymic disorder F34.1 and Generalized anxiety disorder F41.1 [facility] [address] [address] 16 Sep, 2015 Asthma with acute exacerbation in adult J45.901 ; Dysuria R30.0 ; Chronic kidney disease, stage 4 (severe) N18.4 and History of anemia Z86.2 [facility] [address] [address] Sep, Generalized anxiety disorder F41.1 and Dysthymic disorder F34.1 [facility] [id number] [place] [address] August, Screening breast examination Z12.39 and Acute recurrent maxillary sinusitis J01.01 [facility] [id number] [place] [address] August, Osteoarthritis of knees, bilateral M17.0 [facility] [address] [address] August, Chronic kidney disease, stage 4 (severe) N18.4 ; Acute non-recurrent maxillary sinusitis J01.00 ; Urinary problem R39.89 ; Bowel habit changes R19.4 ; Functional diarrhea K59.1 and History of colon polyps Z86.010 [facility] [id number] [place] [address] Jul, Dysthymic disorder F34.1 and Generalized anxiety disorder F41.1 [facility] [id number] [place] [address] Jul, [facility] [id number] [place] [address] Jul, Dysthymic disorder F34.1 ; Generalized anxiety disorder F41.1 and 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 [facility] [id number] [place] [address] Jul, [facility] [id number] [place] [address] Jun, [facility] [address] [address] 08 Jun, 2015 [facility] [id number] [place] [address] 17 May, 2015 [facility] [address] [address] May, Dysthymic disorder F34.1 and Generalized anxiety disorder F41.1 [facility] [id number] [place] [address] Apr, Kidney disease N28.9 [facility] [id number] [place] [address] Apr, Generalized anxiety disorder F41.1 and Dysthymic disorder F34.1 [facility] [address] [address] Apr, Chronic kidney disease, stage 4 (severe) N18.4 [facility] [address] [address] Apr, Generalized anxiety disorder F41.1 ; Major depression, recurrent F33.9 and Sleep disturbance G47.[address] [address] Mar, Generalized anxiety disorder F41.1 and Dysthymic disorder F34.[address] [address] Mar, Generalized anxiety disorder F41.1 ; Dysthymic disorder F34.1 and Insomnia G47.00 [place] [id number] [place] [address] Mar, [place] [id number] [place] [address] Mar, [address] [address] Mar, Osteoarthritis of knees, bilateral M17.[address] [address] Mar, Hypertension I10 ; Hypothyroid E03.9 ; Dysthymic disorder F34.1 ; Chronic kidney disease, stage 4 (severe) N18.4 and Nausea & vomiting R11.2 [address] [place] [address] Mar, Generalized anxiety disorder F41.1 ; Dysthymic disorder F34.1 and Insomnia G47.00 [facility] [id number] [place] [address] Mar, Dehydration E86.0 ; Chronic kidney disease, stage 4 (severe) N18.4 and Nausea & vomiting R11.2 [facility] [address] [address] Mar, Gastroenteritis K52.9 [facility] [address] [address] Mar, [facility] [address] [address] Mar, [facility] [address] [address] Feb, Dysthymic disorder F34.1 and Generalized anxiety disorder F41.1 [facility] [id number] [place] [address] Jan, UTI (urinary tract infection) N39.0 ; Asthma J45.909 ; Coronary artery disease involving little river coronary artery of little river heart, angina presence unspecified I25.10 ; Hypertension I10 ; Hypothyroid E03.9 ; Vitamin D deficiency E55.9 ; Insomnia G47.00 ; Palpitations R00.2 ; Depressed F32.9 ; Restless leg G25.81 and Anxiety F41.9 [facility] [id number] [place] [address] Jan, Dysthymic disorder F34.1 and Generalized anxiety disorder F41.1 [facility] [address] [address] Jan, [facility] [id number] [place] [address] Dec, [facility] [address] [address] Dec, Alkalosis 276.3 ; Chronic kidney disease, Stage IV (severe) 585.4 ; Hyperpotassemia 276.7 ; Secondary hyperparathyroidism, renal 588.81 ; Proteinuria 791.0 ; Unspecified vitamin D deficiency 268.9 ; Anemia in chronic kidney disease 285.21 ; Other and unspecified hyperlipidemia 272.4 ; Hypertension, essential, benign 401.1 and Chronic kidney disease (CKD), stage III (moderate) 585.[address] [address] Dec, [address] [address] Dec, Depressive disorder, not elsewhere classified 311 and Generalized anxiety disorder 300.[address] [address] Dec, [address] [address] Dec, [address] [address] Nov, Depressive disorder, not elsewhere classified 311 and Generalized anxiety disorder 300.02 [place] [id number] [place] [address] Nov, Arthritis of both knees 716.[address] [address] Nov, PAF (paroxysmal atrial fibrillation) 427.31 ; CAD (coronary artery disease) 414.00 ; Chest pain 786.50 and Chronic kidney disease (CKD) stage G4/A1, severely decreased glomerular filtration rate (GFR) between 15-29 mL/min/1.73 square meter and albuminuria creatinine ratio less than 30 mg/g 585.4 [place] [id number] [place] [address] Oct, Coronary atherosclerosis of unspecified type of vessel, little river or graft 414.00 ; Chronic kidney disease, Stage IV (severe) 585.4 ; Hypertension 401.9 and Edema 782.3 [facility] [id number] [place] [address] Oct, Depressive disorder, not elsewhere classified 311 and Generalized anxiety disorder 300.02 [facility] [id number] [place] [address] Oct, Depressive disorder, not elsewhere classified 311 and Generalized anxiety disorder 300.02 [facility] [id number] [place] [address] Oct, [facility] [id number] [place] [address] Oct, [facility] [place] [id number] [place] [address] Sep, [place] [id number] [place] [address] Sep, Chronic kidney disease, Stage IV (severe) 585.4 [place] [id number] [place] [address] Sep, [facility] [id number] [place] [address] Sep, Coronary atherosclerosis of unspecified type of vessel, little river or graft 414.00 ; Hypertension 401.9 ; Edema 782.3 and Hypothyroidism 244.9 [place] [id number] [place] [address] Sep, Coronary atherosclerosis of unspecified type of vessel, little river or graft 414.00 ; Hypertension 401.9 ; Fibromyalgia 729.1 ; Edema 782.3 ; Hypothyroidism 244.9 and Anemia 285.9 [place] [id number] [place] [address] Sep, Anxiety disorder, unspecified 300.00 and Depressive disorder, not elsewhere classified 311 [facility] [id number] [place] [address] Sep, [facility] [address] [address] August, Generalized anxiety disorder 300.02 [facility] [address] [address] August, Closed fracture of lateral malleolus 824.2 [facility] [address] [address] 14 Jul, 2014 [facility] [id number] [address] Jul, [facility] [id number] [address] Jun, [facility] [address] [address] Jun, [facility] [address] [address] Jun, [facility] [address] [address] Jun, [facility] [address] [address] Jun, [facility] [address] [address] Jun, [facility] [address] [address] May, [facility] [address] [address] May, [facility] [address] [address] May, [facility] [address] [address] May, [facility] [id number] [address] 16 May, 2014 [facility] [place] [facility] [address] [id number] [place] [address] 16 May, 2014 [facility] [place] [facility] [address] [id number] [place] [address] 13 May, 2014 [facility] [place] [facility] [address] [id number] [place] [address] 13 May, 2014 [facility] [place] [facility] [address] [id number] [place] [address] 10 May, 2014 [facility] [place] [facility] [address] [id number] [place] [address] 10 May, 2014 [facility] [place] [facility] [address] [id number] [place] [address] Apr, [facility] [place] [facility] [address] [id number] [place] [address] Apr, [facility] [place] [facility] [address] [id number] [place] [address] Mar, [facility] [place] [facility] [address] [id number] [place] [address] Mar, [facility] [place] [facility] [address] [id number] [place] [address] Mar, [facility] [place] [facility] [address] [id number] [place] [address] 15 Mar, 2014 [facility] [place] [facility] [address] [id number] [place] [address] 15 Mar, 2014 [facility] [place] [facility] [address] [id number] [place] [address] 15 Mar, 2014 [facility] [place] [facility] [address] [id number] [place] [address] Mar, [facility] [place] [facility] [address] [id number] [place] [address] 24 Feb, 2014 [facility] [place] [facility] [address] [id number] [address] Feb, [facility] [place] [facility] [address] [id number] [place] [address] Feb, [facility] [place] [facility] [address] [id number] [place] [address] Jan, [facility] [place] [facility] [address] [id number] [place] [address] Jan, [facility] [place] [facility] [address] [id number] [place] [address] Jan, [facility] [place] [facility] [address] [id number] [place] [address] Jan, [facility] [place] [facility] [address] [id number] [place] [address] Jan, [facility] [place] [facility] [address] [id number] [place] [address] Jan, [facility] [place] [facility] [address] [id number] [place] [address] Jan, [facility] [place] [facility] [address] [id number] [place] [address] Jan, [facility] [place] [facility] [address] [id number] [place] [address] Jan, [facility] [place] [facility] [address] [id number] [place] [address] Jan, [facility] [place] [facility] [address] [id number] [place] [address] Nov, [facility] [place] [facility] [address] [id number] [place] [address] Nov, [facility] [place] [facility] [address] [id number] [place] [address] Nov, [facility] [place] [facility] [address] [id number] [place] [address] Oct, [facility] [place] [facility] [address] [id number] [place] [address] 29 Oct, 2013 [facility] [place] [facility] [address] [id number] [place] [address] Oct, [facility] [place] [facility] [address] [id number] [place] [address] Oct, 2013 [facility] [place] [facility] [address] [id number] [place] [address] Oct, 2013 [facility] [place] [facility] [address] [id number] [place] [address] Oct, 2013 [facility] [place] [facility] [address] [id number] [place] [address] Oct, [facility] [place] [facility] [address] [id number] [place] [address] Oct, [facility] [place] [facility] [address] [id number] [place] [address] Oct, [facility] [place] [facility] [address] [id number] [place] [address] Sep, [facility] [place] [facility] [address] [id number] [place] [address] Sep, [facility] [place] [facility] [address] [id number] [place] [address] Sep, [facility] [place] [facility] [address] [id number] [place] [address] Sep, [facility] [place] [facility] [address] [id number] [place] [address] Sep, [facility] [place] [facility] [address] [id number] [place] [address] Sep, [facility] [place] [facility] [address] [id number] [place] [address] Sep, [facility] [place] [facility] [address] [id number] [place] [address] Sep, [facility] [place] [facility] [address] [id number] [place] [address] Sep, [facility] [place] [facility] [address] [id number] [place] [address] August, [facility] [place] [facility] [address] [id number] [place] [address] August, [facility] [place] [facility] [address] [id number] [place] [address] August, [facility] [place] [facility] [address] [id number] [place] [address] August, [facility] [place] [facility] [address] [id number] [place] [address] August, [facility] [place] [facility] [address] [id number] [place] [address] August, [facility] [place] [facility] [address] [id number] [place] [address] Jul, [facility] [place] [facility] [address] [id number] [place] [address] Jul, [facility] [place] [facility] [address] [id number] [place] [address] Jul, [facility] [place] [facility] [address] [id number] [place] [address] Jul, [facility] [place] [facility] [address] [id number], [place] [address] Jul, [facility] [place] [facility] [address] [id number] [place] [address] Jul, [facility] [place] [facility] [address] [id number] [place] [address] Jun, [facility] [place] [facility] [address] [id number] [place] [address] Jun, [facility] [place] [facility] [address] [id number] [place] [address] 19 May, 2013 [facility] [address] [id number] [place] [address] 19 May, 2013 [facility] [place] [facility] [address] [id number] [place] [address] 10 May, 2013 [facility] [address] [id number] [place] [address] May, [facility] [address] [id number] [place] [address] Apr, [facility] [address] [id number] [place] [address] Apr, [facility] [address] [id number] [place] [address] 18 Mar, 2013 [facility] [address] [id number] [place] [address] 18 Mar, 2013 [facility] [address] [id number] [place] [address] 17 Mar, 2013 [facility] [address] [facility] [id number] [place] [address] 17 Mar, 2013 [facility] [address] [facility] [id number] [place] [address] 05 Mar, 2013 [facility] [place] [facility] [address] [id number] [place] [address] 05 Mar, 2013 [facility] [place] [facility] [address] [id number] [place] [address] 20 Feb, 2013 [facility] [place] [facility] [address] [id number] [place] [address] 20 Feb, 2013 [facility] [place] [facility] [address] [id number] [place] [address] 14 Feb, 2013 [facility] [place] [facility] [address] [facility] [id number] [place] [address] Feb, [facility] [place] [facility] [address] [id number] [place] [address] Feb, [facility] [place] [facility] [address] [id number] [place] [address] Feb, [facility] [place] [facility] [address] [id number] [place] [address] Jan, [facility] [place] [facility] [address] [id number] [place] [address] Jan, [facility] [place] [facility] [address] [id number] [place] [address] Jan, [facility] [place] [facility] [address] [id number] [place] [address] Jan, [facility] [place] [facility] [address] [id number] [place] [address] Jan, [facility] [place] [facility] [address] [id number] [place] [address] Jan, [facility] [place] [facility] [address] [id number] [place] [address] Dec, [facility] [place] [facility] [address] [id number], [place] [address] Dec, [facility] [place] [facility] [address] [id number], [place] [address] Nov, [facility] [place] [facility] [address] [id number], [place] [address] Nov, [facility] [place] [facility] [address] [id number] [place] [address] Oct, [facility] [place] [facility] [address] [id number] [place] [address] Oct, [facility] [place] [facility] [address] [id number], [place] [address] Oct, [facility] [place] [facility] [address] [id number], [place] [address] Oct, [facility] [address] [id number] [place] [address] Oct, [facility] [place] [facility] [address] [id number] [place] [address] Oct, [facility] [address] [id number] [place] [address] Sep, [facility] [address] [id number] [place] [address] Sep, [facility] [address] [id number] [place] [address] Sep, [facility] [address] [id number] [place] [address] Sep, [facility] [address] [id number] [place] [address] August, [facility] [address] [id number] [place] [address] August, [facility] [address] [id number] [place] [address] August, [facility] [address] [id number] [place] [address] August, [facility] [address] [id number] [place] [address] August, [facility] [place] [facility] [address] [id number] [place] [address] Jul, [facility] [place] [facility] [address] [id number] [place] [address] Jul, [facility] [place] [facility] [address] [id number] [place] [address] 15 Jul, 2012 [facility] [place] [facility] [address] [id number] [place] [address] Jul, [facility] [place] [facility] [address] [id number] [place] [address] Jul, [facility] [address] [id number] [place] [address] Jul, [facility] [address] [id number] [place] [address] Jul, [facility] [address] [id number] [place] [address] Jul, [facility] [address] [id number] [place] [address] Jul, [facility] [address] [id number] [place] [address] Jul, [facility] [address] [id number] [place] [id number] Jun, [facility] [address] [id number] [place] [address] Jun, [facility] [address] [id number] [place] [address] Jun, [facility] [address] [id number] [place] [address] Jun, [facility] [address] [id number] [place] [address] Jun, [facility] [address] [id number] [place] [address] May, [facility] [address] [id number] [place] [address] May, [facility] [address] [id number] [place] [address] May, [facility] [address] [id number] [place] [address] Apr, [facility] [address] [id number] [place] [address] Apr, [facility] [place] [facility] [address] [id number] [place] [address] Apr, [facility] [place] [facility] [address] [id number] [place] [address] Apr, [facility] [place] [facility] [address] [id number] [place] [address] Apr, [facility] [place] [facility] [address] [id number] [place] [address] Apr, [facility] [place] [facility] [address] [id number] [place] [address] Mar, [facility] [place] [facility] [address] [id number] [place] [address] Mar, [facility] [place] [facility] [address] [id number] [place] [address] Mar, [facility] [place] [facility] [address] [id number] [place] [address] Mar, [facility] [place] [facility] [address] [id number] [place] [address] Feb, [facility] [place] [facility] [address] [id number] [place] [address] Feb, [facility] [place] [facility] [address] [id number] [place] [address] Feb, [facility] [place] [facility] [address] [id number], [place] [address] Feb, [facility] [place] [facility] [address] [id number] [place] [address] Feb, [facility] [place] [facility] [address] [id number] [place] [address] Feb, [facility] [place] [facility] [address] [id number] [place] [address] Feb, [facility] [place] [facility] [address] [id number], [place] [address] Feb, [facility] [place] [facility] [address] [id number] [place] [address] Feb, [facility] [place] [facility] [address] [id number], [place] [address] Feb, [facility] [place] [facility] [address] [id number] [place] [address] Feb, [facility] [place] [facility] [address] [id number] [place] [address] Feb, [facility] [place] [facility] [address] [id number] [place] [address], [place] [address] Feb, [facility] [place] [facility] [address] [id number] [place] [address] Feb, [facility] [place] [facility] [address] [facility] [id number], [place] [address] Feb, [facility] [place] [facility] [address] [id number], [place] [address] Feb, [facility] [place] [facility] [address] [facility] [address] [id number], [place] [address] Jan, [facility] [place] [facility] [address] [facility] [address] [id number][place] [address] Jan, [facility] [place] [facility] [address] [id number], [place] [address] Jan, [facility] [place] [facility] [address] [id number], [place] [address] Jan, [facility] [place] [facility] [address] [id number], [place] [address] 30 Jan, 2012 [facility] [place] [facility] [address] [facility] [id number][place] [address] Jan, [facility] [place] [facility] [address] [facility] [address] [id number], [place] [address] Jan, [facility] [place] [facility] [address] [id number] [place] [address] 16 Jan, 2011 [facility] [place] [facility] [address] [id number] [place] [address] 16 Jan, 2012 [facility] [place] [facility] [address] [id number] [place] [address] 15 Jan, 2012 [facility] [place] [facility] [address] [id number] [place] [address] 15 Jan, 2012 [facility] [place] [facility] [address] [id number] [place] [address] 01 Jan, 2012 [facility] [place] [facility] [address] [id number] [place] [address] 26 Sep, 2011 [facility] [place] [facility] [address] [id number] [place] [address] 26 Sep, 2011 [facility] [place] [facility] [address] [id number] [place] [address] 24 Sep, 2011 [facility] [place] [facility] [address] [id number] [place] [address] 23 Sep, 2011 [facility] [place] [facility] [address] [id number] [place] [address] 22 Sep, 2011 [facility] [place] [facility] [address] [id number] [place] [address] 21 Sep, 2011 [facility] [place] [facility] [address] [id number] [place] [address] 20 Sep, 2011 [facility] [place] [facility] [address] [id number] [place] [address] 20 Sep, 2011 [facility] [place] [facility] [address] [id number] [place] [address] 07 Sep, 2011 [facility] [place] [facility] [address] [id number] [place] [address] 06 Sep, 2011 [facility] [place] [facility] [address] [id number] [place] [address] Dec, [facility] [place] [facility] [address] [id number] [place] [address] 05 Dec, 2011 [facility] [place] [facility] [address] [id number] [place] [address] Nov, [facility] [place] [facility] [address] [id number] [place] [address] Nov, [facility] [place] [facility] [address] [id number] [place] [address] Nov, [facility] [place] [facility] [address] [id number] [place] [address] Nov, [facility] [place] [facility] [address] [id number] [place] [address] Nov, [facility] [place] [facility] [address] [id number] [place] [address] Nov, [facility] [place] [facility] [address] [id number] [place] [address] Nov, [facility] [place] [facility] [address] [id number] [place] [address] Nov, [facility] [place] [facility] [address] [id number] [place] [address] Oct, [facility] [place] [facility] [address] [id number] [place] [address] Oct, [facility] [place] [facility] [address] [id number] [place] [address] Oct, [facility] [place] [facility] [address] [id number] [place] [address] Oct, [facility] [place] [facility] [address] [id number] [place] [address] Oct, [facility] [place] [facility] [address] [id number] [place] [address] Oct, [facility] [place] [facility] [address] [id number] [place] [address] Oct, [facility] [address] [id number] [place] [address] Sep, [facility] [place] [facility] [address] [id number] [place] [address] Sep, [facility] [address] [id number] [place] [address] August, [facility] [place] [facility] [address] [id number] [place] [address] August, [facility] [address] [id number] [place] [address] August, [facility] [address] [id number] [place] [address] August, [facility] [address] [id number] [place] [address] Jul, [facility] [address] [id number] [place] [address] Jul, [facility] [place] [facility] [address] [id number] [place] [address] Jul, [facility] [address] [id number] [place] [address] Jul, [facility] [place] [facility] [address] [id number] [place] [address] Jul, [facility] [place] [facility] [address] [id number] [place] [address] Jul, [facility] [place] [facility] [address] [id number] [place] [address] Jul, [facility] [place] [facility] [address] [id number] [place] [address] Jul, [facility] [place] [facility] [address] [id number] [place] [address] Jul, [facility] [place] [facility] [address] [id number] [place] [address] 23 Jun, 2011 [facility] [place] [facility] [address] [id number] [place] [address] 19 Jun, 2011 [facility] [place] [facility] [address] [id number] [place] [address] 15 Jun, 2011 [facility] [place] [facility] [address] [id number] [place] [address] 14 Jun, 2011 [facility] [place] [facility] [address] [id number] [place] [address] 12 Jun, 2011 [facility] [place] [facility] [address] [id number] [place] [address] Jun, [facility] [address] [id number] [place] [address] Jun, [facility] [address] [id number] [place] [address] 25 May, 2011 [facility] [place] [facility] [address] [id number] [place] [address] 24 May, 2011 [facility] [place] [facility] [address] [id number] [place] [address] May, [facility] [place] [facility] [address] [id number] [place] [address] May, [facility] [place] [facility] [address] [id number] [place] [address] May, [facility] [place] [facility] [address] [id number] [place] [address] Apr, [facility] [place] [facility] [address] [id number] [place] [address] Apr, [facility] [place] [facility] [address] [id number] [place] [address] Apr, [facility] [place] [facility] [address] [id number] [place] [address] Apr, [facility] [place] [facility] [address] [id number] [place] [address] Apr, [facility] [place] [facility] [address] [id number] [place] [address] Mar, [facility] [place] [facility] [address] [id number] [place] [address] Mar, [facility] [place] [facility] [address] [id number] [place] [address] Mar, [facility] [place] [facility] [address] [id number] [place] [address] Mar, [facility] [place] [facility] [address] [id number] [place] [address] Mar, [facility] [place] [facility] [address] [id number] [place] [address] Mar, [facility] [place] [facility] [address] [id number] [place] [address] Mar, [facility] [place] [facility] [address] [id number] [place] [address] Feb, [facility] [place] [facility] [address] [facility] [id number] [place] [address] Feb, [facility] [place] [facility] [address] [id number] [place] [address] Feb, [facility] [place] [facility] [address] [id number] [place] [address] Feb, [facility] [place] [facility] [address] [id number] [place] [address] Jan, [facility] [place] [facility] [address] [id number] [place] [address] Jan, [facility] [place] [facility] [address] [facility] [id number] [place] [address] Jan, [facility] [place] [facility] [id number], [place] [address] Jan, [facility] [id number], [place] [address] Nov, [facility] [id number], [place] [address] Mar, [facility] [id number], [place] [address] Mar, [facility] [address] [facility] [address] [id number], [place] [address] Mar, [facility] [id number] [place] [address] Mar, [facility] [id number], [place] [address] Mar, [facility] [id number], [place] [address] Mar, [facility] [id number], [place] [address] Feb, [facility] [id number], [place] [address] Feb, [facility] [id number], [place] [address] Jan, [facility] [id number], [place] [address] Jan, [facility] [address] [id number], [place] [address] Jan, IMMUNIZATIONS No Known Immunizations SOCIAL HISTORY Never Assessed REASON FOR VISIT EMR-[facility] [place] PLAN OF CARE VITAL SIGNS MEDICATIONS Unknown Medications RESULTS No Results PROCEDURES No Known procedures INSTRUCTIONS MEDICATIONS ADMINISTERED No Known Medications MEDICAL (GENERAL) HISTORY Type Description Date Medical History cardiovascular disease-angina, Afib Medical History hypertension Medical History asthma Medical History hernia-01/2011 Medical History hyperlipidemia Medical History thyroid disorder-hypothyroidism Medical History fibromyalgia Medical History anemia Medical History renal disease-stage 4 Medical History lennker diverticulum was to see [place] for this [...] & 2007 Surgical History Bladder surgery [facility] 03/2016 Surgical History Neurotransmitter placed 10/2017 Surgical History retninal repair 12/31/2017 Surgical History cataract surgery 2018 Surgical History cataract surgery 2019 Hospitalization History Surgeries Only Hospitalization History 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
--- OUTSIDE RECORDS SUMMARY | 2018-10-26 12:28 | XMS REPORT ---
Author Author Migration, Doctor Organization [facility] Address Unknown Phone Unavailable Care Team Providers Care Supervisor Brine Name Role Phone Migration, Doctor Unavailable Unavailable PROBLEMS Type Condition ICD9-CM Code [id number] Code Onset Dates Condition Status SNOMED Code Problem Restless leg G25.81 Active 94811844 Problem Insomnia G47.00 Active 451105156 Problem Hypothyroid E03.9 Active 58779108 Problem Palpitations R00.2 Active 67286045 Problem Asthma J45.909 Active 853006703 Problem Chronic kidney disease, stage 4 (severe) N18.4 Active 478142279 Problem Depressed F32.9 Active 60507861 Problem Bipolar disorder, current episode manic without psychotic features F31.10 Active 903027171 Problem Generalized anxiety disorder F41.1 Active 21359698 Problem Anemia in chronic kidney disease D63.1 Active 098622250238519 Problem Low back pain M54.5 Active 626971652 Problem Coronary artery disease involving iliamna coronary artery of iliamna heart, angina presence unspecified I25.10 Active 6213792025758 Problem Dysthymic disorder F34.1 Active 52747776 Problem Other seasonal allergic rhinitis J30.2 Active 545608065 Problem History of anemia Z86.2 Active 346145864 Problem Fibromyalgia M79.7 Active 916655572 Problem Hypokalemia E87.6 Active 39027765 Problem Vitamin D deficiency E55.9 Active 57289358 Problem Mixed stress and urge urinary incontinence N39.46 Active 563123342 Problem Chronic kidney disease, unspecified N18.9 Active 338621300 Problem Abnormal chest CT R93.8 Active 315807365 Problem Essential (primary) hypertension I10 Active 25242956 Problem Long-term use of high-risk medication Z79.899 Active 225793588 Problem Degenerative tear of medial meniscus of left knee M23.204 Active 730097312 Problem Primary osteoarthritis of left knee M17.12 Active 010250559 Problem Mood disorder F39 Active 96719380 Problem Chronic pain syndrome G89.4 Active 883558893 Problem History of colon polyps Z86.010 Active 627340090 Problem Perimenopausal vasomotor symptoms N95.1 Active 760297488 Problem Functional diarrhea K59.1 Active 60986136 Problem Asthma with acute exacerbation in adult J45.901 Active 260216993 Problem Stage 3 chronic kidney disease N18.3 Active 826167979 Problem Body mass index (BMI) of 40.0-44.9 in adult Z68.41 Active 502253238 Problem Seasonal allergic rhinitis due to pollen J30.1 Active 86551480 Problem Restless leg syndrome G25.81 Active 46006028 ALLERGIES No Information ENCOUNTERS Encounter Location Date Diagnosis [facility] [id number] [place] [address] August, [place] [address] [address] Jul, [place] [address] [address] Jul, [place] [address] [address] Jul, [facility] [address] [address] Jul, [place] [address] [address] Jul, Fibromyalgia M79.7 [facility] [address] [address] Jul, Acute pain of right shoulder M25.511 [facility] [id number] [place] [address] Jul, Acute pain of right shoulder M25.511 and Morbid obesity E66.01 [facility] [address] [address] Jun, [facility] [address] [address] 14 Jun, 2018 Generalized anxiety disorder F41.1 and Major depressive disorder, recurrent episode with anxious distress F33.9 [place] [id number] [place] [address] 11 Jun, 2018 [facility] [address] [address] 06 Jun, 2018 Fibromyalgia M79.7 [facility] [id number] [place] [address] 04 Jun, 2018 Acute pain of right shoulder M25.511 ; Acute pain of right hip M25.551 and Morbid obesity E66.01 [place] [id number] [place] [address] 11 May, 2018 Burning with urination R30.0 ; Vaginal discharge N89.8 ; Chronic kidney disease, stage 4 (severe) N18.4 ; Body mass index (BMI) of 40.0-44.9 in adult Z68.41 and Morbid obesity E66.01 [place] [id number] [place] [address] 07 May, 2018 Fibromyalgia M79.7 [place] [id number] [place] [address] 06 May, 2018 Generalized anxiety disorder F41.1 and Major depressive disorder, recurrent episode with anxious distress F33.9 [place] [id number] [place] [address] Apr, [place] [id number] [place] [address] Apr, Fibromyalgia M79.7 [facility] [id number] [place] [address] 14 Mar, 2018 Acute UTI N39.0 and Dysuria R30.0 [place] [id number] [place] [address] 10 Mar, 2018 Fibromyalgia M79.7 [place] [id number] [place] [address] Feb, [place] [address] [address] 14 Feb, 2018 [facility] [address] [place] [address] Feb, [facility] [address] [address] Feb, Fibromyalgia M79.7 [facility] [id number] [place] [address] 08 Feb, 2018 Complicated UTI (urinary tract infection) N39.0 [facility] [address] [place] [address] Feb, [facility] [address] [place] [address] Jan, Generalized anxiety disorder F41.1 and Major depressive disorder, recurrent episode with anxious distress F33.9 [facility] [address] [place] [address] Jan, Acute conjunctivitis of left eye, unspecified acute conjunctivitis type H10.32 [facility] [address] [address] Jan, [facility] [address] [address] Jan, Acute non-recurrent maxillary sinusitis J01.00 ; Dysuria R30.0 ; Perimenopausal vasomotor symptoms N95.1 and Fibromyalgia M79.7 [facility] [address] [address] 28 Dec, 2017 Vitamin D deficiency E55.9 [facility] [id number] [place] [address] 27 Dec, 2017 Vitamin D deficiency E55.9 [facility] [address] [address] 24 Dec, 2017 Vitamin D deficiency E55.9 [facility] [address] [address] Dec, [facility] [id number] [place] [address] Dec, Fibromyalgia M79.7 [facility] [address] [address] Nov, [facility] [id number] [place] [address] Nov, [facility] [address] [place] [address] Nov, [facility] [id number] [place] [address] Nov, Fibromyalgia M79.7 ; Vision changes H53.9 ; Chest wall pain R07.89 and Chronic pain syndrome G89.4 [place] [id number] [place] [address] Nov, [facility] [id number] [place] [address] Nov, Rash of hands R21 [facility] [id number] [place] [address] Nov, Generalized anxiety disorder F41.1 and Major depressive disorder, recurrent episode with anxious distress F33.9 [facility] [address] [place] [address] Nov, Fibromyalgia M79.7 [facility] [address] [address] Nov, Complicated UTI (urinary tract infection) N39.0 [facility] [address] [place] [address] Oct, [facility] [address] [address] Oct, Generalized anxiety disorder F41.1 and Major depressive disorder, recurrent episode with anxious distress F33.9 [facility] [address] [place] [address] Oct, [facility] [id number] [place] [address] Oct, Fibromyalgia M79.7 [facility] [id number] [place] [address] Sep, Restless leg syndrome G25.81 and Restless leg G25.81 [facility] [id number] [place] [address] Sep, [facility] [address] [address] Sep, Seasonal allergic rhinitis due to pollen J30.1 ; Screening for breast cancer Z12.31 ; Chest pain at rest R07.9 ; Restless leg syndrome G25.81 ; Essential (primary) hypertension I10 and Depressed F32.9 [facility] [id number] [place] [address] August, Fibromyalgia M79.7 [facility] [id number] [place] [address] August, [facility] [id number] [place] [address] August, [facility] [id number] [place] [address] August, Abnormal chest [address] R93.8 [facility] [address] [place] [address] August, Generalized anxiety disorder F41.1 and Major depressive disorder, recurrent episode with anxious distress F33.9 [facility] [address] [place] [address] August, Abnormal chest [address] R93.8 [facility] [id number] [place] [address] Jul, [facility] [address] [address] Jul, Chronic kidney disease, stage 4 (severe) N18.4 [facility] [id number] [place] [address] Jul, [facility] [id number] [place] [address] Jul, Restless leg G25.81 ; Mixed stress and urge urinary incontinence N39.46 and Fibromyalgia M79.7 [place] [id number] [place] [address] Jul, Chronic kidney disease, stage 4 (severe) N18.4 [place] [id number] [place] [address] Jun, Orthostatic hypotension I95.1 ; Chronic kidney disease, stage 4 (severe) N18.4 ; Chest wall discomfort R07.89 and Body mass index (BMI) of 40.0-44.9 in adult Z68.41 [place] [id number] [place] [address] Jun, [place] [id number] [place] [address] Jun, Orthostatic hypotension I95.1 [place] [id number] [place] [address] Jun, [facility] [id number] [place] [address] Jun, Orthostatic hypotension I95.1 ; Dysuria R30.0 and Acute cystitis without hematuria N30.00 [facility] [id number] [place] [address] Jun, [facility] [id number] [place] [address] Jun, Chronic kidney disease, stage 4 (severe) N18.4 [place] [id number] [place] [address] Jun, Fibromyalgia M79.7 [facility] [id number] [place] [address] Jun, [facility] [id number] [place] [address] Jun, [facility] [id number] [place] [address] May, Abnormal chest [address] R93.8 and Stage 3 chronic kidney disease N18.3 [facility] [id number] [place] [address] May, Chronic kidney disease, stage 4 (severe) N18.4 [facility] [id number] [place] [address] May, Chronic kidney disease, stage 4 (severe) N18.4 [facility] [id number] [place] [address] May, Abnormal chest [address] R93.8 [facility] [id number] [place] [address] May, [facility] [id number] [place] [address] May, [facility] [id number] [place] [address] May, Generalized anxiety disorder F41.1 and Major depressive disorder, recurrent episode with anxious distress F33.9 [facility] [id number] [place] [address] May, Mood disorder F39 [facility] [address] [place] [address] Apr, [facility] [address] [place] [address] Apr, Infected skin lesion L08.9 and Muscle strain of right shoulder region, initial encounter S46.911A [place] [address] [place] [address] Apr, Generalized anxiety disorder F41.1 and Major depressive disorder, recurrent episode with anxious distress F33.9 [facility] [address] [place] [address] Apr, [place] [id number] [place] [address] Apr, Recent urinary tract infection Z87.440 and Hypothyroid E03.9 [place] [id number] [place] [address] Apr, Generalized anxiety disorder F41.1 and Major depressive disorder, recurrent episode with anxious distress F33.9 [place] [id number] [place] [address] Apr, Recent urinary tract infection Z87.440 [place] [address] [place] [address] Mar, [facility] [address] [place] [address] Mar, Dysuria R30.0 ; Acute cystitis without hematuria N30.00 and BMI 40.0- 44.9, adult Z68.41 [place] [address] [place] [address] Mar, [facility] [address] [place] [address] Mar, [place] [id number] [place] [address] Mar, Generalized anxiety disorder F41.1 and Major depressive disorder, recurrent episode with anxious distress F33.9 [facility] [address] [place] [address] Feb, Conjunctivitis, bacterial H10.9 [facility] [id number] [place] [address] Feb, [facility] [id number] [place] [address] Feb, Conjunctivitis, bacterial H10.9 [facility] [id number] [place] [address] Feb, [facility] [address] [address] Feb, Dysuria R30.0 ; Acute cystitis N30.00 and BMI 40.0-44.9, adult Z68.41 [place] [address] [address] Feb, [place] [address] [address] Feb, Generalized anxiety disorder F41.1 and Major depressive disorder, recurrent episode with anxious distress F33.9 [place] [id number] [place] [address] Feb, Mood disorder F39 and BMI 40.0-44.9, adult Z68.41 [place] [id number] [place] [address] Jan, [place] [id number] [place] [address] Jan, [place] [id number] [place] [address] Jan, Hypothyroid E03.9 [place] [address] [address] Jan, [place] [id number] [place] [address] Jan, Chronic kidney disease, unspecified N18.9 ; Hypokalemia E87.6 ; Essential (primary) hypertension I10 ; Fibromyalgia M79.7 ; Coronary artery disease involving iliamna coronary artery of iliamna heart, angina presence unspecified I25.10 ; Hypothyroid E03.9 and Encounter for immunization Z23 [facility] [id number] [place] [address] 04 Jan, 2017 Hypothyroid E03.9 [facility] [id number] [place] [address] Jan, [place] [id number] [place] [address] 28 Dec, 2016 Vitamin D deficiency E55.9 [place] [id number] [place] [address] 28 Dec, 2016 Primary osteoarthritis of left knee M17.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 [place] [id number] [place] [address] 19 Dec, 2016 Fibromyalgia M79.7 [facility] [id number] [place] [address] 18 Dec, 2016 Mood disorder F39 [place] [id number] [place] [address] 13 Dec, 2016 [place] [id number] [place] [address] 13 Dec, 2016 Generalized anxiety disorder F41.1 and Major depressive disorder, recurrent episode with anxious distress F33.9 [facility] [id number] [place] [address] 11 Dec, 2016 [place] [id number] [place] [address] 08 Dec, 2016 Streptococcal meningitis G00.2 [place] [id number] [place] [address] 07 Dec, 2016 Streptococcal meningitis G00.2 [place] [id number] [place] [address] 07 Dec, 2016 [facility] [id number] [place] [address] Dec, Streptococcal meningitis G00.2 [facility] [id number] [place] [address] Dec, [facility] [id number] [place] [address] Dec, Major depressive disorder, recurrent episode with anxious distress F33.9 [facility] [id number] [place] [address] Nov, Fever, unspecified fever cause R50.9 [place] [address] [address] Nov, [place] [address] [address] Nov, Hypothyroid E03.9 [place] [id number] [place] [address] Nov, Generalized anxiety disorder F41.1 and Major depressive disorder, recurrent episode with anxious distress F33.9 [place] [id number] [place] [address] Nov, [facility] [id number] [place] [id number] Oct, Dental examination Z01.20 [facility] [id number] [place] [address] Oct, Generalized anxiety disorder F41.1 and Major depressive disorder, recurrent episode with anxious distress F33.9 [facility] [id number] [place] [address] Oct, Chronic kidney disease, stage 4 (severe) N18.4 [facility] [id number] [place] [address] Oct, [facility] [address] [address] Oct, Fibromyalgia M79.7 [place] [address] [address] Oct, [place] [address] [address] Oct, Generalized anxiety disorder F41.1 ; Major depressive disorder, recurrent episode with anxious distress F33.9 and Bipolar disorder, current episode manic without psychotic features F31.10 [place] [address] [address] Sep, [place] [address] [place] [address] Sep, [place] [id number] [place] [address] Sep, Vitamin D deficiency E55.9 [place] [id number] [place] [address] Sep, Vitamin D deficiency E55.9 [place] [address] [address] Sep, [place] [address] [address] Sep, Chronic kidney disease, stage 4 (severe) N18.4 ; Hypothyroid E03.9 ; Restless leg G25.81 ; Fibromyalgia M79.7 ; Essential (primary) hypertension I10 ; Vitamin D deficiency E55.9 ; Dyspepsia R10.13 ; Anemia in chronic kidney disease D63.1 ; Chronic kidney disease, unspecified N18.9 ; Coronary artery disease involving iliamna coronary artery of iliamna heart, angina presence unspecified I25.10 ; Screening breast examination Z12.39 and Low back pain M54.5 [place] [address] [address] August, Generalized anxiety disorder F41.1 and Major depressive disorder, recurrent episode with anxious distress F33.9 [place] [id number] [address] August, Generalized anxiety disorder F41.1 and Major depressive disorder, recurrent episode with anxious distress F33.9 [place] [address] [place] [address] August, Fibromyalgia M79.7 [place] [id number] [place] [address] Jul, Generalized anxiety disorder F41.1 and Major depressive disorder, recurrent episode with anxious distress F33.9 [place] [id number] [place] [address] Jul, Fibromyalgia M79.7 [place] [id number] [place] [address] Jul, Generalized anxiety disorder F41.1 [place] [id number] [place] [address] May, [place] [id number] [place] [address] May, Hypothyroid E03.9 [address] [id number] [place] [address] May, Chronic kidney disease, stage 4 (severe) N18.4 ; Hypothyroid E03.9 ; Restless leg G25.81 ; Fibromyalgia M79.7 ; Essential (primary) hypertension I10 ; Vitamin D deficiency E55.9 ; Dyspepsia R10.13 ; Acute non-recurrent maxillary sinusitis J01.00 ; Anemia in chronic kidney disease D63.1 ; Chronic kidney disease, unspecified N18.9 and Coronary artery disease involving iliamna coronary artery of iliamna heart, angina presence unspecified I25.10 [place] [id number] [place] [id number] May, Vitamin D deficiency, unspecified E55.9 [place] [id number] [place] [phone] May, Generalized anxiety disorder F41.1 and Major depressive disorder, recurrent episode with anxious distress F33.9 [facility] [id number] [place] [id number] Apr, Pain in right knee M25.561 and Pain in left knee M25.562 [facility] [id number] [place] [phone] Apr, [facility] [id number] [place] [phone] Apr, [facility] [id number] [place] [phone] Apr, [place] [id number] [place] [phone] Mar, Generalized anxiety disorder F41.1 and Major depressive disorder, recurrent episode with anxious distress F33.9 [place] [id number] [place] [phone] Mar, Generalized anxiety disorder F41.1 and Major depressive disorder, recurrent episode with anxious distress F33.9 [facility] [id number] [place] [address] Mar, [facility] [id number] [place] [address] Mar, [facility] [id number] [place] [address] Mar, [facility] [id number] [place] [address] Mar, Asthma J45.909 and Fibromyalgia M79.7 [place] [facility] [address] [address] Mar, Chronic kidney disease, stage 4 (severe) N18.4 ; Vitamin D deficiency E55.9 and Essential (primary) hypertension I10 [facility] [id number] [place] [address] Feb, [facility] [id number] [place] [address] Feb, Dysuria R30.0 ; Mixed stress and urge urinary incontinence N39.46 ; Fibromyalgia M79.7 and Chronic kidney disease, stage IV (severe) N18.4 [facility] [id number] [place] [address] Feb, Chronic kidney disease, stage 4 (severe) N18.4 [facility] [id number] [place] [address] Feb, Chronic kidney disease, stage 4 (severe) N18.4 [facility] [id number] [place] [address] Feb, [facility] [id number] [place] [address] Feb, Vitamin D deficiency, unspecified E55.9 [facility] [id number] [place] [address] Jan, [facility] [id number] [place] [address] Jan, [facility] [id number] [place] [address] Dec, [facility] [id number] [place] [address] Dec, Chronic kidney disease, stage 4 (severe) N18.4 [facility] [id number] [place] [address] Dec, Dysthymic disorder F34.1 and Generalized anxiety disorder F41.1 [facility] [id number] [place] [address] 27 Dec, 2015 [facility] [id number] [place] [address] Dec, [facility] [id number] [place] [address] Dec, Dysthymic disorder F34.1 and Generalized anxiety disorder F41.1 [facility] [address] [address] Dec, Dysuria R30.0 ; Chronic kidney disease, stage 4 (severe) N18.4 ; Hypertension I10 ; Dyspepsia R10.13 ; Yeast dermatitis B37.2 ; Palpitations R00.2 ; Hypothyroid E03.9 ; Functional diarrhea K59.1 and Other seasonal allergic rhinitis J30.2 [facility] [address] [address] Dec, [facility] [address] [address] Nov, Dysuria R30.0 and Stress incontinence N39.3 [facility] [address] [address] Nov, [facility] [address] [address] Nov, [facility] [address] [address] Nov, Osteoarthritis of knees, bilateral M17.0 [facility] [address] [address] Nov, Dysthymic disorder F34.1 and Generalized anxiety disorder F41.1 [facility] [id number] [place] [address] Nov, [facility] [address] [address] Nov, [facility] [address] [address] Nov, Urgency of urination R39.15 [facility] [address] [address] Nov, [facility] [id number] [place] [address] Nov, Chronic kidney disease, stage 4 (severe) N18.4 [facility] [address] [address] Oct, Hypertension I10 ; Coronary artery disease involving iliamna coronary artery of iliamna heart, angina presence unspecified I25.10 ; Palpitations R00.2 ; Hypothyroid E03.9 ; Right foot pain M79.671 ; Functional diarrhea K59.1 and Other seasonal allergic rhinitis J30.2 [facility] [address] [address] Oct, Dysthymic disorder F34.1 and Generalized anxiety disorder F41.1 [facility] [address] [address] Sep, [facility] [address] [address] Sep, [facility] [address] [address] Sep, [facility] [address] [address] Sep, [facility] [id number] [place] [address] Sep, [facility] [address] [address] Sep, Dysthymic disorder F34.1 and Generalized anxiety disorder F41.1 [facility] [address] [address] 16 Sep, 2015 Asthma with acute exacerbation in adult J45.901 ; Dysuria R30.0 ; Chronic kidney disease, stage 4 (severe) N18.4 and History of anemia Z86.2 [facility] [address] [address] Sep, Generalized anxiety disorder F41.1 and Dysthymic disorder F34.1 [facility] [id number] [place] [address] August, Screening breast examination Z12.39 and Acute recurrent maxillary sinusitis J01.01 [facility] [id number] [place] [address] August, Osteoarthritis of knees, bilateral M17.0 [facility] [address] [address] August, Chronic kidney disease, stage 4 (severe) N18.4 ; Acute non-recurrent maxillary sinusitis J01.00 ; Urinary problem R39.89 ; Bowel habit changes R19.4 ; Functional diarrhea K59.1 and History of colon polyps Z86.010 [facility] [id number] [place] [address] Jul, Dysthymic disorder F34.1 and Generalized anxiety disorder F41.1 [facility] [id number] [place] [address] Jul, [facility] [id number] [place] [address] Jul, Dysthymic disorder F34.1 ; Generalized anxiety disorder F41.1 and intermediate frame tender use of drug Z79.899 [facility] [id number] [place] [address] Jul, [facility] [id number] [place] [address] Jun, [facility] [address] [address] 08 Jun, 2015 [facility] [id number] [place] [address] 17 May, 2015 [facility] [address] [address] May, Dysthymic disorder F34.1 and Generalized anxiety disorder F41.1 [facility] [id number] [place] [address] Apr, Kidney disease N28.9 [facility] [id number] [place] [address] Apr, Generalized anxiety disorder F41.1 and Dysthymic disorder F34.1 [facility] [address] [address] Apr, Chronic kidney disease, stage 4 (severe) N18.4 [facility] [address] [address] Apr, Generalized anxiety disorder F41.1 ; Major depression, recurrent F33.9 and Sleep disturbance G47.[address] [address] Mar, Generalized anxiety disorder F41.1 and Dysthymic disorder F34.[address] [address] Mar, Generalized anxiety disorder F41.1 ; Dysthymic disorder F34.1 and Insomnia G47.00 [place] [id number] [place] [address] Mar, [facility] [id number] [place] [address] Mar, [address] [address] Mar, Osteoarthritis of knees, bilateral M17.[address] [address] Mar, Hypertension I10 ; Hypothyroid E03.9 ; Dysthymic disorder F34.1 ; Chronic kidney disease, stage 4 (severe) N18.4 and Nausea & vomiting R11.2 [address] [place] [address] Mar, Generalized anxiety disorder F41.1 ; Dysthymic disorder F34.1 and Insomnia G47.00 [facility] [id number] [place] [address] Mar, Dehydration E86.0 ; Chronic kidney disease, stage 4 (severe) N18.4 and Nausea & vomiting R11.2 [facility] [address] [address] Mar, Gastroenteritis K52.9 [facility] [address] [address] Mar, [facility] [address] [address] Mar, [facility] [address] [address] Feb, Dysthymic disorder F34.1 and Generalized anxiety disorder F41.1 [facility] [id number] [place] [address] Jan, UTI (urinary tract infection) N39.0 ; Asthma J45.909 ; Coronary artery disease involving iliamna coronary artery of iliamna heart, angina presence unspecified I25.10 ; Hypertension I10 ; Hypothyroid E03.9 ; Vitamin D deficiency E55.9 ; Insomnia G47.00 ; Palpitations R00.2 ; Depressed F32.9 ; Restless leg G25.81 and Anxiety F41.9 [facility] [id number] [place] [address] Jan, Dysthymic disorder F34.1 and Generalized anxiety disorder F41.1 [facility] [address] [address] Jan, [facility] [id number] [place] [address] Dec, [facility] [address] [address] Dec, Alkalosis 276.3 ; Chronic kidney disease, Stage IV (severe) 585.4 ; Hyperpotassemia 276.7 ; Secondary hyperparathyroidism, renal 588.81 ; Proteinuria 791.0 ; Unspecified vitamin D deficiency 268.9 ; Anemia in chronic kidney disease 285.21 ; Other and unspecified hyperlipidemia 272.4 ; Hypertension, essential, benign 401.1 and Chronic kidney disease (CKD), stage III (moderate) 585.[address] [address] Dec, [address] [address] Dec, Depressive disorder, not elsewhere classified 311 and Generalized anxiety disorder 300.[address] [address] Dec, [address] [address] Dec, [address] [address] Nov, Depressive disorder, not elsewhere classified 311 and Generalized anxiety disorder 300.02 [id number] [place] [address] Nov, Arthritis of both knees 716.[address] [address] Nov, PAF (paroxysmal atrial fibrillation) 427.31 ; CAD (coronary artery disease) 414.00 ; Chest pain 786.50 and Chronic kidney disease (CKD) stage G4/A1, severely decreased glomerular filtration rate (GFR) between 15-29 mL/min/1.73 square meter and albuminuria creatinine ratio less than 30 mg/g 585.4 [place] [id number] [place] [address] Oct, Coronary atherosclerosis of unspecified type of vessel, iliamna or graft 414.00 ; Chronic kidney disease, Stage IV (severe) 585.4 ; Hypertension 401.9 and Edema 782.3 [facility] [id number] [place] [address] Oct, Depressive disorder, not elsewhere classified 311 and Generalized anxiety disorder 300.02 [facility] [id number] [place] [address] Oct, Depressive disorder, not elsewhere classified 311 and Generalized anxiety disorder 300.02 [facility] [id number] [place] [address] Oct, [facility] [id number] [place] [address] Oct, [facility] [id number] [place] [address] Sep, [place] [id number] [place] [address] Sep, Chronic kidney disease, Stage IV (severe) 585.4 [place] [id number] [place] [address] Sep, [facility] [id number] [place] [address] Sep, Coronary atherosclerosis of unspecified type of vessel, iliamna or graft 414.00 ; Hypertension 401.9 ; Edema 782.3 and Hypothyroidism 244.9 [place] [id number] [place] [address] Sep, Coronary atherosclerosis of unspecified type of vessel, iliamna or graft 414.00 ; Hypertension 401.9 ; Fibromyalgia 729.1 ; Edema 782.3 ; Hypothyroidism 244.9 and Anemia 285.9 [place] [id number] [place] [address] Sep, Anxiety disorder, unspecified 300.00 and Depressive disorder, not elsewhere classified 311 [facility] [id number] [place] [address] Sep, [facility] [address] [address] August, Generalized anxiety disorder 300.02 [facility] [address] [address] August, Closed fracture of lateral malleolus 824.2 [facility] [address] [address] 14 Jul, 2014 [facility] [id number] [address] Jul, [facility] [id number] [address] Jun, [facility] [address] [address] Jun, [facility] [id number] [address] Jun, [facility] [address] [address] Jun, [facility] [id number] [address] Jun, [facility] [address] [address] Jun, [facility] [address] [address] May, [facility] [id number] [address] May, [facility] [address] [address] May, [facility] [id number] [address] May, [facility] [id number] [address] 16 May, 2014 [facility] [place] [facility] [address] [id number] [place] [address] 16 May, 2014 [facility] [place] [facility] [address] [id number] [place] [address] 13 May, 2014 [facility] [place] [facility] [address] [id number] [place] [address] 13 May, 2014 [facility] [place] [facility] [address] [id number] [place] [address] 10 May, 2014 [facility] [place] [facility] [address] [id number] [place] [address] 10 May, 2014 [facility] [place] [facility] [address] [id number] [place] [address] Apr, [facility] [place] [facility] [address] [id number] [place] [address] Apr, [facility] [place] [facility] [address] [id number] [place] [address] Mar, [facility] [place] [facility] [address] [id number] [place] [address] Mar, [facility] [place] [facility] [address] [id number] [place] [address] Mar, [facility] [place] [facility] [address] [id number] [place] [address] 15 Mar, 2014 [facility] [place] [facility] [address] [id number] [place] [address] 15 Mar, 2014 [facility] [place] [facility] [address] [id number] [place] [address] 15 Mar, 2014 [facility] [place] [facility] [address] [id number] [place] [address] Mar, [facility] [place] [facility] [address] [id number] [place] [address] 24 Feb, 2014 [facility] [place] [facility] [address] [id number] [address] Feb, [facility] [place] [facility] [address] [id number] [place] [address] Feb, [facility] [place] [facility] [address] [id number] [place] [address] Jan, [facility] [place] [facility] [address] [id number] [place] [address] Jan, [facility] [place] [facility] [address] [id number] [place] [address] Jan, [facility] [place] [facility] [address] [id number] [place] [address] Jan, [facility] [place] [facility] [address] [id number] [place] [address] Jan, [facility] [place] [facility] [address] [id number] [place] [address] Jan, [facility] [place] [facility] [address] [id number] [place] [address] Jan, [facility] [place] [facility] [address] [id number] [place] [address] Jan, [facility] [place] [facility] [address] [id number] [place] [address] Jan, [facility] [place] [facility] [address] [id number] [place] [address] Jan, [facility] [place] [facility] [address] [id number] [place] [address] Nov, [facility] [place] [facility] [address] [id number] [place] [address] Nov, [facility] [place] [facility] [address] [id number] [place] [address] Nov, [facility] [place] [facility] [address] [id number] [place] [address] Oct, [facility] [place] [facility] [address] [id number] [place] [address] 29 Oct, 2013 [facility] [place] [facility] [address] [id number] [place] [address] Oct, [facility] [place] [facility] [address] [id number] [place] [address] Oct, 2013 [facility] [place] [facility] [address] [id number] [place] [address] Oct, 2013 [facility] [place] [facility] [address] [id number] [place] [address] Oct, 2013 [facility] [place] [facility] [address] [id number] [place] [address] Oct, [facility] [place] [facility] [address] [id number] [place] [address] Oct, [facility] [place] [facility] [address] [id number] [place] [address] Oct, [facility] [place] [facility] [address] [id number] [place] [address] Sep, [facility] [place] [facility] [address] [id number] [place] [address] Sep, [facility] [place] [facility] [address] [id number] [place] [address] Sep, [facility] [place] [facility] [address] [id number] [place] [address] Sep, [facility] [place] [facility] [address] [id number] [place] [address] Sep, [facility] [place] [facility] [address] [id number] [place] [address] Sep, [facility] [place] [facility] [address] [id number] [place] [address] Sep, [facility] [place] [facility] [address] [id number] [place] [address] Sep, [facility] [place] [facility] [address] [id number] [place] [address] Sep, [facility] [place] [facility] [address] [id number] [place] [address] August, [facility] [place] [facility] [address] [id number] [place] [address] August, [facility] [place] [facility] [address] [id number] [place] [address] August, [facility] [place] [facility] [address] [id number] [place] [address] August, [facility] [place] [facility] [address] [id number] [place] [address] August, [facility] [place] [facility] [address] [id number] [place] [address] August, [facility] [place] [facility] [address] [id number] [place] [address] Jul, [facility] [place] [facility] [address] [id number] [place] [address] Jul, [facility] [place] [facility] [address] [id number] [place] [address] Jul, [facility] [place] [facility] [address] [id number] [place] [address] Jul, [facility] [place] [facility] [address] [id number] [address] Jul, [facility] [place] [facility] [address] [id number] [place] [address] Jul, [facility] [place] [facility] [address] [id number] [place] [address] Jun, [facility] [place] [facility] [address] [id number] [place] [address] Jun, [facility] [place] [facility] [address] [id number] [place] [address] 19 May, 2013 [facility] [address] [id number] [place] [address] 19 May, 2013 [facility] [place] [facility] [address] [id number] [place] [address] 10 May, 2013 [facility] [address] [id number] [place] [address] May, [facility] [address] [id number] [place] [address] Apr, [facility] [address] [id number] [place] [address] Apr, [facility] [address] [id number] [place] [address] 18 Mar, 2013 [facility] [address] [id number] [place] [address] 18 Mar, 2013 [facility] [address] [id number] [place] [address] 17 Mar, 2013 [facility] [address] [facility] [id number] [place] [address] 17 Mar, 2013 [facility] [address] [facility] [id number] [place] [address] 05 Mar, 2013 [facility] [place] [facility] [address] [id number] [place] [address] 05 Mar, 2013 [facility] [place] [facility] [address] [id number] [place] [address] 20 Feb, 2013 [facility] [place] [facility] [address] [id number] [place] [address] 20 Feb, 2013 [facility] [place] [facility] [address] [id number] [place] [address] 14 Feb, 2013 [facility] [place] [facility] [address] [facility] [id number] [place] [address] Feb, [facility] [place] [facility] [address] [id number] [place] [address] Feb, [facility] [place] [facility] [address] [id number] [place] [address] Feb, [facility] [place] [facility] [address] [id number] [place] [address] Jan, [facility] [place] [facility] [address] [id number] [place] [address] Jan, [facility] [place] [facility] [address] [id number] [place] [address] Jan, [facility] [place] [facility] [address] [id number] [place] [address] Jan, [facility] [place] [facility] [address] [id number] [place] [address] Jan, [facility] [place] [facility] [address] [id number] [place] [address] Jan, [facility] [place] [facility] [address] [id number] [place] [address] Dec, [facility] [place] [facility] [address] [id number] [address] Dec, [facility] [place] [facility] [address] [id number] [address] Nov, [facility] [place] [facility] [address] [id number] [address] Nov, [facility] [place] [facility] [address] [id number] [place] [address] Oct, [facility] [place] [facility] [address] [id number] [place] [address] Oct, [facility] [place] [facility] [address] [id number] [address] Oct, [facility] [place] [facility] [address] [id number] [address] Oct, [facility] [address] [id number] [place] [address] Oct, [facility] [place] [facility] [address] [id number] [place] [address] Oct, [facility] [address] [id number] [place] [address] Sep, [facility] [address] [id number] [place] [address] Sep, [facility] [address] [id number] [place] [address] Sep, [facility] [address] [id number] [place] [address] Sep, [facility] [address] [id number] [place] [address] August, [facility] [address] [id number] [place] [address] August, [facility] [address] [id number] [place] [address] August, [facility] [address] [id number] [place] [address] August, [facility] [address] [id number] [place] [address] August, [facility] [place] [facility] [address] [id number] [place] [address] Jul, [facility] [place] [facility] [address] [id number] [place] [address] Jul, [facility] [place] [facility] [address] [id number] [place] [address] 15 Jul, 2012 [facility] [place] [facility] [address] [id number] [place] [address] Jul, [facility] [place] [facility] [address] [id number] [place] [address] Jul, [facility] [address] [id number] [place] [address] Jul, [facility] [address] [id number] [place] [address] Jul, [facility] [address] [id number] [place] [address] Jul, [facility] [address] [id number] [place] [address] Jul, [facility] [address] [id number] [place] [address] Jul, [facility] [address] [id number] [place] [id number] Jun, [facility] [address] [id number] [place] [address] Jun, [facility] [address] [id number] [place] [address] Jun, [facility] [address] [id number] [place] [address] Jun, [facility] [address] [id number] [place] [address] Jun, [facility] [address] [id number] [place] [address] May, [facility] [address] [id number] [place] [address] May, [facility] [address] [id number] [place] [address] May, [facility] [address] [id number] [place] [address] Apr, [facility] [address] [id number] [place] [address] Apr, [facility] [place] [facility] [address] [id number] [place] [address] Apr, [facility] [place] [facility] [address] [id number] [place] [address] Apr, [facility] [place] [facility] [address] [id number] [place] [address] Apr, [facility] [place] [facility] [address] [id number] [place] [address] Apr, [facility] [place] [facility] [address] [id number] [place] [address] Mar, [facility] [place] [facility] [address] [id number] [place] [address] Mar, [facility] [place] [facility] [address] [id number] [place] [address] Mar, [facility] [place] [facility] [address] [id number] [place] [address] Mar, [facility] [place] [facility] [address] [id number] [place] [address] Feb, [facility] [place] [facility] [address] [id number] [place] [address] Feb, [facility] [place] [facility] [address] [id number] [place] [address] Feb, [facility] [place] [facility] [address] [id number] [address] Feb, [facility] [place] [facility] [address] [id number] [place] [address] Feb, [facility] [place] [facility] [address] [id number] [place] [address] Feb, [facility] [place] [facility] [address] [id number] [place] [address] Feb, [facility] [place] [facility] [address] [id number] [address] Feb, [facility] [place] [facility] [address] [id number] [place] [address] Feb, [facility] [place] [facility] [address] [id number] [address] Feb, [facility] [place] [facility] [address] [id number] [place] [address] Feb, [facility] [place] [facility] [address] [id number] [place] [address] Feb, [facility] [place] [facility] [address] [id number] [place] [address], [place] [address] Feb, [facility] [place] [facility] [address] [id number] [place] [address] Feb, [facility] [place] [facility] [address] [facility] [id number] [address] Feb, [facility] [place] [facility] [address] [id number] [address] Feb, [facility] [place] [facility] [address] [facility] [id number] [address] Jan, [facility] [place] [facility] [address] [facility] [id number] [address] Jan, [facility] [place] [facility] [address] [id number] [address] Jan, [facility] [place] [facility] [address] [id number] [address] Jan, [facility] [place] [facility] [address] [id number] [address] 30 Jan, 2012 [facility] [place] [facility] [address] [facility] [id number] [place] [address] Jan, [facility] [place] [facility] [address] [facility] [id number] [address] Jan, [facility] [place] [facility] [address] [id number] [place] [address] 16 Jan, 2011 [facility] [place] [facility] [address] [id number] [place] [address] 16 Jan, 2012 [facility] [place] [facility] [address] [id number] [place] [address] 15 Jan, 2012 [facility] [place] [facility] [address] [id number] [place] [address] 15 Jan, 2012 [facility] [place] [facility] [address] [id number] [place] [address] 01 Jan, 2012 [facility] [place] [facility] [address] [id number] [place] [address] 26 Sep, 2011 [facility] [place] [facility] [address] [id number] [place] [address] 26 Sep, 2011 [facility] [place] [facility] [address] [id number] [place] [address] 24 Sep, 2011 [facility] [place] [facility] [address] [id number] [place] [address] 23 Sep, 2011 [facility] [place] [facility] [address] [id number] [place] [address] 22 Sep, 2011 [facility] [place] [facility] [address] [id number] [place] [address] 21 Sep, 2011 [facility] [place] [facility] [address] [id number] [place] [address] 20 Sep, 2011 [facility] [place] [facility] [address] [id number] [place] [address] 20 Sep, 2011 [facility] [place] [facility] [address] [id number] [place] [address] 07 Sep, 2011 [facility] [place] [facility] [address] [id number] [place] [address] 06 Sep, 2011 [facility] [place] [facility] [address] [id number] [place] [address] Dec, [facility] [place] [facility] [address] [id number] [place] [address] 05 Dec, 2011 [facility] [place] [facility] [address] [id number] [place] [address] Nov, [facility] [place] [facility] [address] [id number] [place] [address] Nov, [facility] [place] [facility] [address] [id number] [place] [address] Nov, [facility] [place] [facility] [address] [id number] [place] [address] Nov, [facility] [place] [facility] [address] [id number] [place] [address] Nov, [facility] [place] [facility] [address] [id number] [place] [address] Nov, [facility] [place] [facility] [address] [id number] [place] [address] Nov, [facility] [place] [facility] [address] [id number] [place] [address] Nov, [facility] [place] [facility] [address] [id number] [place] [address] Oct, [facility] [place] [facility] [address] [id number] [place] [address] Oct, [facility] [place] [facility] [address] [id number] [place] [address] Oct, [facility] [place] [facility] [address] [id number] [place] [address] Oct, [facility] [place] [facility] [address] [id number] [place] [address] Oct, [facility] [place] [facility] [address] [id number] [place] [address] Oct, [facility] [place] [facility] [address] [id number] [place] [address] Oct, [facility] [address] [id number] [place] [address] Sep, [facility] [place] [facility] [address] [id number] [place] [address] Sep, [facility] [address] [id number] [place] [address] August, [facility] [place] [facility] [address] [id number] [place] [address] August, [facility] [address] [id number] [place] [address] August, [facility] [address] [id number] [place] [address] August, [facility] [address] [id number] [place] [address] Jul, [facility] [address] [id number] [place] [address] Jul, [facility] [place] [facility] [address] [id number] [place] [address] Jul, [facility] [address] [id number] [place] [address] Jul, [facility] [place] [facility] [address] [id number] [place] [address] Jul, [facility] [place] [facility] [address] [id number] [place] [address] Jul, [facility] [place] [facility] [address] [id number] [place] [address] Jul, [facility] [place] [facility] [address] [id number] [place] [address] Jul, [facility] [place] [facility] [address] [id number] [place] [address] Jul, [facility] [place] [facility] [address] [id number] [place] [address] 23 Jun, 2011 [facility] [place] [facility] [address] [id number] [place] [address] 19 Jun, 2011 [facility] [place] [facility] [address] [id number] [place] [address] 15 Jun, 2011 [facility] [place] [facility] [address] [id number] [place] [address] 14 Jun, 2011 [facility] [place] [facility] [address] [id number] [place] [address] 12 Jun, 2011 [facility] [place] [facility] [address] [id number] [place] [address] Jun, [facility] [address] [id number] [place] [address] Jun, [facility] [address] [id number] [place] [address] 25 May, 2011 [facility] [place] [facility] [address] [id number] [place] [address] 24 May, 2011 [facility] [place] [facility] [address] [id number] [place] [address] May, [facility] [place] [facility] [address] [id number] [place] [address] May, [facility] [place] [facility] [address] [id number] [place] [address] May, [facility] [place] [facility] [address] [id number] [place] [address] Apr, [facility] [place] [facility] [address] [id number] [place] [address] Apr, [facility] [place] [facility] [address] [id number] [place] [address] Apr, [facility] [place] [facility] [address] [id number] [place] [address] Apr, [facility] [place] [facility] [address] [id number] [place] [address] Apr, [facility] [place] [facility] [address] [id number] [place] [address] Mar, [facility] [place] [facility] [address] [id number] [place] [address] Mar, [facility] [place] [facility] [address] [id number] [place] [address] Mar, [facility] [place] [facility] [address] [id number] [place] [address] Mar, [facility] [place] [facility] [address] [id number] [place] [address] Mar, [facility] [place] [facility] [address] [id number] [place] [address] Mar, [facility] [place] [facility] [address] [id number] [place] [address] Mar, [facility] [place] [facility] [address] [id number] [place] [address] Feb, [facility] [place] [facility] [address] [facility] [id number] [place] [address] Feb, [facility] [place] [facility] [address] [id number] [place] [address] Feb, [facility] [place] [facility] [address] [id number] [place] [address] Feb, [facility] [place] [facility] [address] [id number] [place] [address] Jan, [facility] [place] [facility] [address] [id number] [place] [address] Jan, [facility] [place] [facility] [address] [facility] [id number] [place] [address] Jan, [facility] [place] [facility] [id number] [address] Jan, [facility] [id number] [address] Nov, [facility] [id number] [address] Mar, [facility] [id number] [address] Mar, [facility] [address] [facility] [id number] [address] Mar, [facility] [id number] [place] [address] Mar, [facility] [id number] [address] Mar, [facility] [id number] [address] Mar, [facility] [id number] [address] Feb, [facility] [id number] [address] Feb, [facility] [address] [id number] [address] Jan, [facility] [id number] [address] Jan, [facility] [address] [id number] [address] Jan, IMMUNIZATIONS No Known Immunizations SOCIAL HISTORY Never Assessed REASON FOR VISIT EMR-[facility] PLAN OF CARE VITAL SIGNS MEDICATIONS Unknown [...] 2020 & 2007 Surgical History Bladder surgery [facility] 03/2016 Surgical History Neurotransmitter placed 10/2017 Surgical History retninal repair 12/31/2017 Surgical History cataract surgery 2018 Surgical History cataract surgery 2019 Hospitalization History Surgeries Only Hospitalization History 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
[2018-10-26] MEDS ORDERED: PROMETHAZINE INJ 25 MG/ML (PHENERGAN) AMP IVP ONE (12:30)
--- OUTSIDE RECORDS SUMMARY | 2018-10-26 12:30 | XMS REPORT ---
Author Author Migration, Doctor Organization [facility] Address Unknown Phone Unavailable Care Team Providers Care Cage Supervisor Name Role Phone Migration, Doctor Unavailable Unavailable PROBLEMS Type Condition ICD9-CM Code [id number] Code Onset Dates Condition Status SNOMED Code Problem Restless leg G25.81 Active 91003135 Problem Insomnia G47.00 Active 605741413 Problem Hypothyroid E03.9 Active 10453402 Problem Palpitations R00.2 Active 26513400 Problem Asthma J45.909 Active 014786451 Problem Chronic kidney disease, stage 4 (severe) N18.4 Active 865956299 Problem Depressed F32.9 Active 20356897 Problem Bipolar disorder, current episode manic without psychotic features F31.10 Active 980409209 Problem Generalized anxiety disorder F41.1 Active 82999250 Problem Anemia in chronic kidney disease D63.1 Active [id number] Problem Low back pain M54.5 Active 330695635 Problem Coronary artery disease involving [place] coronary artery of [place] heart, angina presence unspecified I25.10 Active 8195459404929 Problem Dysthymic disorder F34.1 Active 19799196 Problem Other seasonal allergic rhinitis J30.2 Active 672453674 Problem History of anemia Z86.2 Active 021014716 Problem Fibromyalgia M79.7 Active 934270821 Problem Hypokalemia E87.6 Active 24398702 Problem Vitamin D deficiency E55.9 Active 32174596 Problem Mixed stress and urge urinary incontinence N39.46 Active 830462343 Problem Chronic kidney disease, unspecified N18.9 Active 940215779 Problem Abnormal chest CT R93.8 Active 111717820 Problem Essential (primary) hypertension I10 Active 17751892 Problem Long-term use of high-risk medication Z79.899 Active 610136415 Problem Degenerative tear of medial meniscus of left knee M23.204 Active 465781648 Problem Primary osteoarthritis of left knee M17.12 Active 096273579 Problem Mood disorder F39 Active 79751165 Problem Chronic pain syndrome G89.4 Active 032398664 Problem History of colon polyps Z86.010 Active 411042555 Problem Perimenopausal vasomotor symptoms N95.1 Active 168563156 Problem Functional diarrhea K59.1 Active 34619392 Problem Asthma with acute exacerbation in adult J45.901 Active 280824974 Problem Stage 3 chronic kidney disease N18.3 Active 101913698 Problem Body mass index (BMI) of 40.0-44.9 in adult Z68.41 Active 800279621 Problem Seasonal allergic rhinitis due to pollen J30.1 Active 39451936 Problem Restless leg syndrome G25.81 Active 58032986 ALLERGIES No Information ENCOUNTERS Encounter Location Date Diagnosis [facility] [id number] [place] [address] August, [place] [address] [address] Jul, [place] [address] [address] Jul, [place] [address] [address] Jul, [facility] [address] [address] Jul, [place] [address] [address] Jul, Fibromyalgia M79.7 [facility] [address] [address] Jul, Acute pain of right shoulder M25.511 [facility] [id number] [place] [address] Jul, Acute pain of right shoulder M25.511 and Morbid obesity E66.01 [facility] [address] [address] Jun, [facility] [address] [address] 14 Jun, 2018 Generalized anxiety disorder F41.1 and Major depressive disorder, recurrent episode with anxious distress F33.9 [place] [id number] [place] [address] 11 Jun, 2018 [facility] [address] [address] 06 Jun, 2018 Fibromyalgia M79.7 [facility] [id number] [place] [address] 04 Jun, 2018 Acute pain of right shoulder M25.511 ; Acute pain of right hip M25.551 and Morbid obesity E66.01 [place] [id number] [place] [address] 11 May, 2018 Burning with urination R30.0 ; Vaginal discharge N89.8 ; Chronic kidney disease, stage 4 (severe) N18.4 ; Body mass index (BMI) of 40.0-44.9 in adult Z68.41 and Morbid obesity E66.01 [place] [id number] [place] [address] 07 May, 2018 Fibromyalgia M79.7 [place] [id number] [place] [address] 06 May, 2018 Generalized anxiety disorder F41.1 and Major depressive disorder, recurrent episode with anxious distress F33.9 [place] [id number] [place] [address] Apr, [place] [id number] [place] [address] Apr, Fibromy[address] M79.[address] [facility] [id number] [place] [address] 14 Mar, 2018 Acute UTI N39.0 and Dysuria R30.0 [place] [id number] [place] [address] 10 Mar, 2018 Fibromyalgia M79.7 [place] [id number] [place] [address] Feb, [place] [address] [place] [address] 14 Feb, 2018 [facility] [id number] [place] [address] Feb, [facility] [address] [place] [address] Feb, Fibromyalgia M79.7 [facility] [id number] [place] [address] 08 Feb, 2018 Complicated UTI (urinary tract infection) N39.0 [facility] [id number] [place] [address] Feb, [facility] [id number] [place] [address] Jan, Generalized anxiety disorder F41.1 and Major depressive disorder, recurrent episode with anxious distress F33.9 [facility] [id number] [place] [address] Jan, Acute conjunctivitis of left eye, unspecified acute conjunctivitis type H10.32 [facility] [address] [place] [address] Jan, [facility] [address] [place] [address] Jan, Acute non-recurrent maxillary sinusitis J01.00 ; Dysuria R30.0 ; Perimenopausal vasomotor symptoms N95.1 and Fibromyalgia M79.7 [facility] [address] [place] [address] 28 Dec, 2017 Vitamin D deficiency E55.9 [facility] [id number] [place] [address] 27 Dec, 2017 Vitamin D deficiency E55.9 [facility] [address] [place] [address] 24 Dec, 2017 Vitamin D deficiency E55.9 [facility] [address], [place] [address] Dec, [facility] [id number] [place] [address] Dec, Fibromyalgia M79.7 [facility] [address], [place] [address] Nov, [facility] [id number] [place] [address] Nov, [facility] [id number] [place] [address] Nov, [facility] [id number] [place] [address] Nov, Fibromyalgia M79.7 ; Vision changes H53.9 ; Chest wall pain R07.89 and Chronic pain syndrome G89.4 [place] [id number] [place] [address] Nov, [facility] [id number] [place] [address] Nov, Rash of hands R21 [facility] [id number] [place] [address] Nov, Generalized anxiety disorder F41.1 and Major depressive disorder, recurrent episode with anxious distress F33.9 [facility] [id number] [place] [address] Nov, Fibromyalgia M79.7 [facility] [address], [place] [address] Nov, Complicated UTI (urinary tract infection) N39.0 [facility] [id number] [place] [address] Oct, [facility] [address], [place] [address] Oct, Generalized anxiety disorder F41.1 and Major depressive disorder, recurrent episode with anxious distress F33.9 [facility] [id number] [place] [address] Oct, [facility] [id number] [place] [address] Oct, Fibromyalgia M79.7 [facility] [id number] [place] [address] Sep, Restless leg syndrome G25.81 and Restless leg G25.81 [facility] [id number] [place] [address] Sep, [facility] [address] [address] Sep, Seasonal allergic rhinitis due to pollen J30.1 ; Screening for breast cancer Z12.31 ; Chest pain at rest R07.9 ; Restless leg syndrome G25.81 ; Essential (primary) hypertension I10 and Depressed F32.9 [facility] [id number] [place] [address] August, Fibromyalgia M79.7 [facility] [id number] [place] [address] August, [facility] [id number] [place] [address] August, [facility] [id number] [place] [address] August, Abnormal chest [address] R93.8 [facility] [id number] [place] [address] August, Generalized anxiety disorder F41.1 and Major depressive disorder, recurrent episode with anxious distress F33.9 [facility] [id number] [place] [address] August, Abnormal chest [address] R93.8 [facility] [id number] [place] [address] Jul, [facility] [address], [place] [address] Jul, Chronic kidney disease, stage 4 (severe) N18.4 [facility] [id number] [place] [address] Jul, [facility] [id number] [place] [address] Jul, Restless leg G25.81 ; Mixed stress and urge urinary incontinence N39.46 and Fibromyalgia M79.7 [place] [id number] [place] [address] Jul, Chronic kidney disease, stage 4 (severe) N18.4 [place] [id number] [place] [address] Jun, Orthostatic hypotension I95.1 ; Chronic kidney disease, stage 4 (severe) N18.4 ; Chest wall discomfort R07.89 and Body mass index (BMI) of 40.0-44.9 in adult Z68.41 [place] [id number] [place] [address] Jun, [place] [id number] [place] [address] Jun, Orthostatic hypotension I95.1 [place] [id number] [place] [address] Jun, [facility] [id number] [place] [address] Jun, Orthostatic hypotension I95.1 ; Dysuria R30.0 and Acute cystitis without hematuria N30.00 [facility] [id number] [place] [address] Jun, [facility] [id number] [place] [address] Jun, Chronic kidney disease, stage 4 (severe) N18.4 [place] [id number] [place] [address] Jun, Fibromyalgia M79.7 [facility] [id number] [place] [address] Jun, [facility] [id number] [place] [address] Jun, [facility] [id number] [place] [address] May, Abnormal chest [address] R93.8 and Stage 3 chronic kidney disease N18.3 [facility] [id number] [place] [address] May, Chronic kidney disease, stage 4 (severe) N18.4 [facility] [id number] [place] [address] May, Chronic kidney disease, stage 4 (severe) N18.4 [facility] [id number] [place] [address] May, Abnormal chest [address] R93.8 [facility] [id number] [place] [address] May, [facility] [id number] [place] [address] May, [facility] [id number] [place] [address] May, Generalized anxiety disorder F41.1 and Major depressive disorder, recurrent episode with anxious distress F33.9 [facility] [id number] [place] [address] May, Mood disorder F39 [facility] [id number] [place] [address] Apr, [facility] [id number] [place] [address] Apr, Infected skin lesion L08.9 and Muscle strain of right shoulder region, initial encounter S46.911A [place] [id number] [place] [address] Apr, Generalized anxiety disorder F41.1 and Major depressive disorder, recurrent episode with anxious distress F33.9 [facility] [id number] [place] [address] Apr, [place] [id number] [place] [address] Apr, Recent urinary tract infection Z87.440 and Hypothyroid E03.9 [place] [id number] [place] [address] Apr, Generalized anxiety disorder F41.1 and Major depressive disorder, recurrent episode with anxious distress F33.9 [place] [id number] [place] [address] Apr, Recent urinary tract infection Z87.440 [place] [id number] [place] [address] Mar, [facility] [id number] [place] [address] Mar, Dysuria R30.0 ; Acute cystitis without hematuria N30.00 and BMI 40.0- 44.9, adult Z68.41 [place] [id number] [place] [address] Mar, [facility] [id number] [place] [address] Mar, [place] [id number] [place] [address] Mar, Generalized anxiety disorder F41.1 and Major depressive disorder, recurrent episode with anxious distress F33.9 [facility] [id number] [place] [address] Feb, Conjunctivitis, bacterial H10.9 [facility] [id number] [place] [address] Feb, [facility] [id number] [place] [address] Feb, Conjunctivitis, bacterial H10.9 [facility] [id number] [place] [address] Feb, [facility] [address] [address] Feb, Dysuria R30.0 ; Acute cystitis N30.00 and BMI 40.0-44.9, adult Z68.41 [place] [address] [address] Feb, [place] [address] [address] Feb, Generalized anxiety disorder F41.1 and Major depressive disorder, recurrent episode with anxious distress F33.9 [place] [id number] [place] [address] Feb, Mood disorder F39 and BMI 40.0-44.9, adult Z68.41 [place] [id number] [place] [address] Jan, [place] [id number] [place] [address] Jan, [place] [id number] [place] [address] Jan, Hypothyroid E03.9 [place] [address] [address] Jan, [place] [id number] [place] [address] Jan, Chronic kidney disease, unspecified N18.9 ; Hypokalemia E87.6 ; Essential (primary) hypertension I10 ; Fibromyalgia M79.7 ; Coronary artery disease involving [place] coronary artery of [place] heart, angina presence unspecified I25.10 ; Hypothyroid E03.9 and Encounter for immunization Z23 [facility] [id number] [place] [address] 04 Jan, 2017 Hypothyroid E03.9 [facility] [id number] [place] [address] Jan, [place] [id number] [place] [address] 28 Dec, 2016 Vitamin D deficiency E55.9 [place] [id number] [place] [address] 28 Dec, 2016 Primary osteoarthritis of left knee M17.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 [place] [id number] [place] [address] 19 Dec, 2016 Fibromyalgia M79.7 [facility] [id number] [place] [address] 18 Dec, 2016 Mood disorder F39 [place] [id number] [place] [address] 13 Dec, 2016 [place] [id number] [place] [address] 13 Dec, 2016 Generalized anxiety disorder F41.1 and Major depressive disorder, recurrent episode with anxious distress F33.9 [facility] [id number] [place] [address] 11 Dec, 2016 [place] [id number] [place] [address] 08 Dec, 2016 Streptococcal meningitis G00.2 [place] [id number] [place] [address] 07 Dec, 2016 Streptococcal meningitis G00.2 [place] [id number] [place] [address] 07 Dec, 2016 [facility] [id number] [place] [address] Dec, Streptococcal meningitis G00.2 [facility] [id number] [place] [address] Dec, [facility] [id number] [place] [address] Dec, Major depressive disorder, recurrent episode with anxious distress F33.9 [facility] [id number] [place] [address] Nov, Fever, unspecified fever cause R50.9 [place] [address] [address] Nov, [place] [address] [address] Nov, Hypothyroid E03.9 [place] [id number] [place] [address] Nov, Generalized anxiety disorder F41.1 and Major depressive disorder, recurrent episode with anxious distress F33.9 [place] [id number] [place] [address] Nov, [facility] [id number] [place] [id number] Oct, Dental examination Z01.20 [facility] [id number] [place] [address] Oct, Generalized anxiety disorder F41.1 and Major depressive disorder, recurrent episode with anxious distress F33.9 [facility] [id number] [place] [address] Oct, Chronic kidney disease, stage 4 (severe) N18.4 [facility] [id number] [place] [address] Oct, [facility] [address] [address] Oct, Fibromyalgia M79.7 [place] [address], [place] [address] Oct, [place] [address] [place] [address] Oct, Generalized anxiety disorder F41.1 ; Major depressive disorder, recurrent episode with anxious distress F33.9 and Bipolar disorder, current episode manic without psychotic features F31.10 [place] [address] [place] [address] Sep, [place] [id number] [place] [address] Sep, [place] [id number] [place] [address] Sep, Vitamin D deficiency E55.9 [place] [id number] [place] [address] Sep, Vitamin D deficiency E55.9 [place] [address], [place] [address] Sep, [place] [address] [place] [address] Sep, Chronic kidney disease, stage 4 (severe) N18.4 ; Hypothyroid E03.9 ; Restless leg G25.81 ; Fibromyalgia M79.7 ; Essential (primary) hypertension I10 ; Vitamin D deficiency E55.9 ; Dyspepsia R10.13 ; Anemia in chronic kidney disease D63.1 ; Chronic kidney disease, unspecified N18.9 ; Coronary artery disease involving [place] coronary artery of [place] heart, angina presence unspecified I25.10 ; Screening breast examination Z12.39 and Low back pain M54.5 [place] [address] [place] [address] August, Generalized anxiety disorder F41.1 and Major depressive disorder, recurrent episode with anxious distress F33.9 [place] [id number] [address] August, Generalized anxiety disorder F41.1 and Major depressive disorder, recurrent episode with anxious distress F33.9 [place] [id number] [place] [address] August, Fibromyalgia M79.7 [place] [id number] [place] [address] Jul, Generalized anxiety disorder F41.1 and Major depressive disorder, recurrent episode with anxious distress F33.9 [place] [id number] [place] [address] Jul, Fibromyalgia M79.7 [place] [id number] [place] [address] Jul, Generalized anxiety disorder F41.1 [place] [id number] [place] [address] May, [place] [id number] [place] [address] May, Hypothyroid E03.9 [id number] [place] [phone] May, Chronic kidney disease, stage 4 (severe) N18.4 ; Hypothyroid E03.9 ; Restless leg G25.81 ; Fibromyalgia M79.7 ; Essential (primary) hypertension I10 ; Vitamin D deficiency E55.9 ; Dyspepsia R10.13 ; Acute non-recurrent maxillary sinusitis J01.00 ; Anemia in chronic kidney disease D63.1 ; Chronic kidney disease, unspecified N18.9 and Coronary artery disease involving [place] coronary artery of [place] heart, angina presence unspecified I25.10 [place] [id number] [place] [phone] May, Vitamin D deficiency, unspecified E55.9 [place] [id number] [place] [phone] May, Generalized anxiety disorder F41.1 and Major depressive disorder, recurrent episode with anxious distress F33.9 [facility] [id number] [place] [phone] Apr, Pain in right knee M25.561 and Pain in left knee M25.562 [facility] [id number] [place] [phone] Apr, [facility] [id number] [place] [phone] Apr, [facility] [id number] [place] [phone] Apr, [place] [id number] [place] [address] Mar, Generalized anxiety disorder F41.1 and Major depressive disorder, recurrent episode with anxious distress F33.9 [facility] [id number] [place] [address] Mar, Generalized anxiety disorder F41.1 and Major depressive disorder, recurrent episode with anxious distress F33.9 [facility] [id number] [place] [address] Mar, [facility] [id number] [place] [address] Mar, [facility] [id number] [place] [address] Mar, [facility] [id number] [place] [address] Mar, Asthma J45.909 and Fibromyalgia M79.7 [facility] [address] [address] Mar, Chronic kidney disease, stage 4 (severe) N18.4 ; Vitamin D deficiency E55.9 and Essential (primary) hypertension I10 [facility] [id number] [place] [address] Feb, [facility] [id number] [place] [address] Feb, Dysuria R30.0 ; Mixed stress and urge urinary incontinence N39.46 ; Fibromyalgia M79.7 and Chronic kidney disease, stage IV (severe) N18.4 [facility] [id number] [place] [address] Feb, Chronic kidney disease, stage 4 (severe) N18.4 [facility] [id number] [place] [address] Feb, Chronic kidney disease, stage 4 (severe) N18.4 [facility] [id number] [place] [address] Feb, [facility] [id number] [place] [address] Feb, Vitamin D deficiency, unspecified E55.9 [facility] [id number] [place] [address] Jan, [facility] [id number] [place] [address] Jan, [facility] [id number] [place] [address] Dec, [facility] [id number] [place] [address] Dec, Chronic kidney disease, stage 4 (severe) N18.4 [facility] [id number] [place] [address] Dec, Dysthymic disorder F34.1 and Generalized anxiety disorder F41.1 [facility] [id number] [place] [address] 27 Dec, 2015 [facility] [id number] [place] [address] Dec, [facility] [id number] [place] [address] Dec, Dysthymic disorder F34.1 and Generalized anxiety disorder F41.1 [facility] [address] [address] Dec, Dysuria R30.0 ; Chronic kidney disease, stage 4 (severe) N18.4 ; Hypertension I10 ; Dyspepsia R10.13 ; Yeast dermatitis B37.2 ; Palpitations R00.2 ; Hypothyroid E03.9 ; Functional diarrhea K59.1 and Other seasonal allergic rhinitis J30.2 [facility] [address] [address] Dec, [facility] [address] [address] Nov, Dysuria R30.0 and Stress incontinence N39.3 [facility] [address] [address] Nov, [facility] [address] [address] Nov, [facility] [address] [address] Nov, Osteoarthritis of knees, bilateral M17.0 [facility] [address] [address] Nov, Dysthymic disorder F34.1 and Generalized anxiety disorder F41.1 [facility] [id number] [place] [address] Nov, [facility] [address] [address] Nov, [facility] [address] [address] Nov, Urgency of urination R39.15 [facility] [address] [address] Nov, [facility] [id number] [place] [address] Nov, Chronic kidney disease, stage 4 (severe) N18.4 [facility] [address] [address] Oct, Hypertension I10 ; Coronary artery disease involving [place] coronary artery of [place] heart, angina presence unspecified I25.10 ; Palpitations R00.2 ; Hypothyroid E03.9 ; Right foot pain M79.671 ; Functional diarrhea K59.1 and Other seasonal allergic rhinitis J30.2 [facility] [address] [address] Oct, Dysthymic disorder F34.1 and Generalized anxiety disorder F41.1 [facility] [address] [address] Sep, [facility] [address] [address] Sep, [facility] [address] [address] Sep, [facility] [address] [address] Sep, [facility] [id number] [place] [address] Sep, [facility] [address] [address] Sep, Dysthymic disorder F34.1 and Generalized anxiety disorder F41.1 [facility] [address] [address] 16 Sep, 2015 Asthma with acute exacerbation in adult J45.901 ; Dysuria R30.0 ; Chronic kidney disease, stage 4 (severe) N18.4 and History of anemia Z86.2 [facility] [address] [address] Sep, Generalized anxiety disorder F41.1 and Dysthymic disorder F34.1 [facility] [id number] [place] [address] August, Screening breast examination Z12.39 and Acute recurrent maxillary sinusitis J01.01 [facility] [id number] [place] [address] August, Osteoarthritis of knees, bilateral M17.0 [facility] [address] [address] August, Chronic kidney disease, stage 4 (severe) N18.4 ; Acute non-recurrent maxillary sinusitis J01.00 ; Urinary problem R39.89 ; Bowel habit changes R19.4 ; Functional diarrhea K59.1 and History of colon polyps Z86.010 [facility] [id number] [place] [address] Jul, Dysthymic disorder F34.1 and Generalized anxiety disorder F41.1 [facility] [id number] [place] [address] Jul, [facility] [id number] [place] [address] Jul, Dysthymic disorder F34.1 ; Generalized anxiety disorder F41.1 and long term acute care registered nurse use of drug Z79.899 [facility] [id number] [place] [address] Jul, [facility] [id number] [place] [address] Jun, [facility] [address] [address] 08 Jun, 2015 [facility] [id number] [place] [address] 17 May, 2015 [facility] [address] [address] May, Dysthymic disorder F34.1 and Generalized anxiety disorder F41.1 [facility] [id number] [place] [address] Apr, Kidney disease N28.9 [facility] [id number] [place] [address] Apr, Generalized anxiety disorder F41.1 and Dysthymic disorder F34.1 [facility] [address] [address] Apr, Chronic kidney disease, stage 4 (severe) N18.4 [facility] [address] [address] Apr, Generalized anxiety disorder F41.1 ; Major depression, recurrent F33.9 and Sleep disturbance G47.[address] [address] Mar, Generalized anxiety disorder F41.1 and Dysthymic disorder F34.[address] [address] Mar, Generalized anxiety disorder F41.1 ; Dysthymic disorder F34.1 and Insomnia G47.00 [place] [id number] [place] [address] Mar, [facility] [id number] [place] [address] Mar, [address] [address] Mar, Osteoarthritis of knees, bilateral M17.[address] [address] Mar, Hypertension I10 ; Hypothyroid E03.9 ; Dysthymic disorder F34.1 ; Chronic kidney disease, stage 4 (severe) N18.4 and Nausea & vomiting R11.2 [address] [place] [address] Mar, Generalized anxiety disorder F41.1 ; Dysthymic disorder F34.1 and Insomnia G47.00 [facility] [id number] [place] [address] Mar, Dehydration E86.0 ; Chronic kidney disease, stage 4 (severe) N18.4 and Nausea & vomiting R11.2 [facility] [address] [address] Mar, Gastroenteritis K52.9 [facility] [address] [address] Mar, [facility] [address] [address] Mar, [facility] [address] [address] Feb, Dysthymic disorder F34.1 and Generalized anxiety disorder F41.1 [facility] [id number] [place] [address] Jan, UTI (urinary tract infection) N39.0 ; Asthma J45.909 ; Coronary artery disease involving [place] coronary artery of [place] heart, angina presence unspecified I25.10 ; Hypertension I10 ; Hypothyroid E03.9 ; Vitamin D deficiency E55.9 ; Insomnia G47.00 ; Palpitations R00.2 ; Depressed F32.9 ; Restless leg G25.81 and Anxiety F41.9 [facility] [id number] [place] [address] Jan, Dysthymic disorder F34.1 and Generalized anxiety disorder F41.1 [facility] [address] [address] Jan, [facility] [id number] [place] [address] Dec, [facility] [address] [address] Dec, Alkalosis 276.3 ; Chronic kidney disease, Stage IV (severe) 585.4 ; Hyperpotassemia 276.7 ; Secondary hyperparathyroidism, renal 588.81 ; Proteinuria 791.0 ; Unspecified vitamin D deficiency 268.9 ; Anemia in chronic kidney disease 285.21 ; Other and unspecified hyperlipidemia 272.4 ; Hypertension, essential, benign 401.1 and Chronic kidney disease (CKD), stage III (moderate) 585.[address] [address] Dec, [address] [address] Dec, Depressive disorder, not elsewhere classified 311 and Generalized anxiety disorder 300.[address] [address] Dec, [address] [address] Dec, [address] [address] Nov, Depressive disorder, not elsewhere classified 311 and Generalized anxiety disorder 300.02 [place] [id number] [place] [address] Nov, Arthritis of both knees 716.[address] [address] Nov, PAF (paroxysmal atrial fibrillation) 427.31 ; CAD (coronary artery disease) 414.00 ; Chest pain 786.50 and Chronic kidney disease (CKD) stage G4/A1, severely decreased glomerular filtration rate (GFR) between 15-29 mL/min/1.73 square meter and albuminuria creatinine ratio less than 30 mg/g 585.4 [place] [id number] [place] [address] Oct, Coronary atherosclerosis of unspecified type of vessel, [place] or graft 414.00 ; Chronic kidney disease, Stage IV (severe) 585.4 ; Hypertension 401.9 and Edema 782.3 [facility] [id number] [place] [address] Oct, Depressive disorder, not elsewhere classified 311 and Generalized anxiety disorder 300.02 [facility] [id number] [place] [address] Oct, Depressive disorder, not elsewhere classified 311 and Generalized anxiety disorder 300.02 [facility] [id number] [place] [address] Oct, [facility] [id number] [place] [address] Oct, [facility] [id number] [place] [address] Sep, [facility] [facility] [id number] [place] [address] Sep, Chronic kidney disease, Stage IV (severe) 585.4 [place] [id number] [place] [address] Sep, [facility] [id number] [place] [address] Sep, Coronary atherosclerosis of unspecified type of vessel, [place] or graft 414.00 ; Hypertension 401.9 ; Edema 782.3 and Hypothyroidism 244.9 [place] [id number] [place] [address] Sep, Coronary atherosclerosis of unspecified type of vessel, [place] or graft 414.00 ; Hypertension 401.9 ; Fibromyalgia 729.1 ; Edema 782.3 ; Hypothyroidism 244.9 and Anemia 285.9 [place] [id number] [place] [address] Sep, Anxiety disorder, unspecified 300.00 and Depressive disorder, not elsewhere classified 311 [facility] [id number] [place] [address] Sep, [facility] [address] [address] August, Generalized anxiety disorder 300.02 [facility] [address] [address] August, Closed fracture of lateral malleolus 824.2 [facility] [address] [address] 14 Jul, 2014 [facility] [id number] [address] Jul, [facility] [id number] [address] Jun, [facility] [address] [place] [address] Jun, [facility] [address], [place] [address] Jun, [facility] [address] [place] [address] Jun, [facility] [address] [address] Jun, [facility] [address] [place] [address] Jun, [facility] [address] [place] [address] May, [facility] [address], [place] [address] May, [facility] [address], [place] [address] May, [facility] [address], [place] [address] May, [facility] [id number] [address] 16 May, 2014 [facility] [place] [facility] [address] [id number] [place] [address] 16 May, 2014 [facility] [place] [facility] [address] [id number] [place] [address] 13 May, 2014 [facility] [place] [facility] [address] [id number] [place] [address] 13 May, 2014 [facility] [place] [facility] [address] [id number] [place] [address] 10 May, 2014 [facility] [place] [facility] [address] [id number] [place] [address] 10 May, 2014 [facility] [place] [facility] [address] [id number] [place] [address] Apr, [facility] [place] [facility] [address] [id number] [place] [address] Apr, [facility] [place] [facility] [address] [id number] [place] [address] Mar, [facility] [place] [facility] [address] [id number] [place] [address] Mar, [facility] [place] [facility] [address] [id number] [place] [address] Mar, [facility] [place] [facility] [address] [id number] [place] [address] 15 Mar, 2014 [facility] [place] [facility] [address] [id number] [place] [address] 15 Mar, 2014 [facility] [place] [facility] [address] [id number] [place] [address] 15 Mar, 2014 [facility] [place] [facility] [address] [id number] [place] [address] Mar, [facility] [place] [facility] [address] [id number] [place] [address] 24 Feb, 2014 [facility] [place] [facility] [address] [id number] [address] Feb, [facility] [place] [facility] [address] [id number] [place] [address] Feb, [facility] [place] [facility] [address] [id number] [place] [address] Jan, [facility] [place] [facility] [address] [id number] [place] [address] Jan, [facility] [place] [facility] [address] [id number] [place] [address] Jan, [facility] [place] [facility] [address] [id number] [place] [address] Jan, [facility] [place] [facility] [address] [id number] [place] [address] Jan, [facility] [place] [facility] [address] [id number] [place] [address] Jan, [facility] [place] [facility] [address] [id number] [place] [address] Jan, [facility] [place] [facility] [address] [id number] [place] [address] Jan, [facility] [place] [facility] [address] [id number] [place] [address] Jan, [facility] [place] [facility] [address] [id number] [place] [address] Jan, [facility] [place] [facility] [address] [id number] [place] [address] Nov, [facility] [place] [facility] [address] [id number] [place] [address] Nov, [facility] [place] [facility] [address] [id number] [place] [address] Nov, [facility] [place] [facility] [address] [id number] [place] [address] Oct, [facility] [place] [facility] [address] [id number] [place] [address] 29 Oct, 2013 [facility] [place] [facility] [address] [id number] [place] [address] Oct, [facility] [place] [facility] [address] [id number] [place] [address] Oct, 2013 [facility] [place] [facility] [address] [id number] [place] [address] Oct, 2013 [facility] [place] [facility] [address] [id number] [place] [address] Oct, 2013 [facility] [place] [facility] [address] [id number] [place] [address] Oct, [facility] [place] [facility] [address] [id number] [place] [address] Oct, [facility] [place] [facility] [address] [id number] [place] [address] Oct, [facility] [place] [facility] [address] [id number] [place] [address] Sep, [facility] [place] [facility] [address] [id number] [place] [address] Sep, [facility] [place] [facility] [address] [id number] [place] [address] Sep, [facility] [place] [facility] [address] [id number] [place] [address] Sep, [facility] [place] [facility] [address] [id number] [place] [address] Sep, [facility] [place] [facility] [address] [id number] [place] [address] Sep, [facility] [place] [facility] [address] [id number] [place] [address] Sep, [facility] [place] [facility] [address] [id number] [place] [address] Sep, [facility] [place] [facility] [address] [id number] [place] [address] Sep, [facility] [place] [facility] [address] [id number] [place] [address] August, [facility] [place] [facility] [address] [id number] [place] [address] August, [facility] [place] [facility] [address] [id number] [place] [address] August, [facility] [place] [facility] [address] [id number] [place] [address] August, [facility] [place] [facility] [address] [id number] [place] [address] August, [facility] [place] [facility] [address] [id number] [place] [address] August, [facility] [place] [facility] [address] [id number] [place] [address] Jul, [facility] [place] [facility] [address] [id number] [place] [address] Jul, [facility] [place] [facility] [address] [id number] [place] [address] Jul, [facility] [place] [facility] [address] [id number] [place] [address] Jul, [facility] [place] [facility] [address] [id number], [place] [address] Jul, [facility] [place] [facility] [address] [id number] [place] [address] Jul, [facility] [place] [facility] [address] [id number] [place] [address] Jun, [facility] [place] [facility] [address] [id number] [place] [address] Jun, [facility] [place] [facility] [address] [id number] [place] [address] 19 May, 2013 [facility] [address] [id number] [place] [address] 19 May, 2013 [facility] [place] [facility] [address] [id number] [place] [address] 10 May, 2013 [facility] [address] [id number] [place] [address] May, [facility] [address] [id number] [place] [address] Apr, [facility] [address] [id number] [place] [address] Apr, [facility] [address] [id number] [place] [address] 18 Mar, 2013 [facility] [address] [id number] [place] [address] 18 Mar, 2013 [facility] [address] [id number] [place] [address] 17 Mar, 2013 [facility] [address] [facility] [id number] [place] [address] 17 Mar, 2013 [facility] [address] [facility] [id number] [place] [address] 05 Mar, 2013 [facility] [place] [facility] [address] [id number] [place] [address] 05 Mar, 2013 [facility] [place] [facility] [address] [id number] [place] [address] 20 Feb, 2013 [facility] [place] [facility] [address] [id number] [place] [address] 20 Feb, 2013 [facility] [place] [facility] [address] [id number] [place] [address] 14 Feb, 2013 [facility] [place] [facility] [address] [facility] [id number] [place] [address] Feb, [facility] [place] [facility] [address] [id number] [place] [address] Feb, [facility] [place] [facility] [address] [id number] [place] [address] Feb, [facility] [place] [facility] [address] [id number] [place] [address] Jan, [facility] [place] [facility] [address] [id number] [place] [address] Jan, [facility] [place] [facility] [address] [id number] [place] [address] Jan, [facility] [place] [facility] [address] [id number] [place] [address] Jan, [facility] [place] [facility] [address] [id number] [place] [address] Jan, [facility] [place] [facility] [address] [id number] [place] [address] Jan, [facility] [place] [facility] [address] [id number] [place] [address] Dec, [facility] [place] [facility] [address] [id number], [place] [address] Dec, [facility] [place] [facility] [address] [id number], [place] [address] Nov, [facility] [place] [facility] [address] [id number], [place] [address] Nov, [facility] [place] [facility] [address] [id number] [place] [address] Oct, [facility] [place] [facility] [address] [id number] [place] [address] Oct, [facility] [place] [facility] [address] [id number], [place] [address] Oct, [facility] [place] [facility] [address] [id number], [place] [address] Oct, [facility] [address] [id number] [place] [address] Oct, [facility] [place] [facility] [address] [id number] [place] [address] Oct, [facility] [address] [id number] [place] [address] Sep, [facility] [address] [id number] [place] [address] Sep, [facility] [address] [id number] [place] [address] Sep, [facility] [address] [id number] [place] [address] Sep, [facility] [address] [id number] [place] [address] August, [facility] [address] [id number] [place] [address] August, [facility] [address] [id number] [place] [address] August, [facility] [address] [id number] [place] [address] August, [facility] [address] [id number] [place] [address] August, [facility] [place] [facility] [address] [id number] [place] [address] Jul, [facility] [place] [facility] [address] [id number] [place] [address] Jul, [facility] [place] [facility] [address] [id number] [place] [address] 15 Jul, 2012 [facility] [place] [facility] [address] [id number] [place] [address] Jul, [facility] [facility] [address] [id number] [place] [address] Jul, [facility] [address] [id number] [place] [address] Jul, [facility] [address] [id number] [place] [address] Jul, [facility] [address] [id number] [place] [address] Jul, [facility] [address] [id number] [place] [address] Jul, [facility] [address] [id number] [place] [address] Jul, [facility] [address] [id number] [place] [address] Jun, [facility] [address] [id number] [place] [address] Jun, [facility] [address] [id number] [place] [address] Jun, [facility] [address] [id number] [place] [address] Jun, [facility] [address] [id number] [place] [address] Jun, [facility] [address] [id number] [place] [address] May, [facility] [address] [id number] [place] [address] May, [facility] [address] [id number] [place] [address] May, [facility] [address] [id number] [place] [address] Apr, [facility] [address] [id number] [place] [address] Apr, [facility] [address] [id number] [place] [address] Apr, [facility] [address] [id number] [place] [address] Apr, [facility] [address] [id number] [place] [address] Apr, [facility] [address] [id number] [place] [address] Apr, [facility] [address] [id number] [place] [address] Mar, [facility] [address] [id number] [place] [address] Mar, [facility] [address] [id number] [place] [address] Mar, [facility] [address] [id number] [place] [address] Mar, [facility] [address] [id number] [place] [address] Feb, [facility] [address] [id number] [place] [address] Feb, [facility] [address] [id number] [place] [address] Feb, [facility] [address] [id number], [place] [address] Feb, [facility] [address] [id number] [place] [address] Feb, [facility] [address] [id number] [place] [address] Feb, [facility] [address] [id number] [place] [address] Feb, [facility] [address] [id number], [place] [address] Feb, [facility] [address] [id number] [place] [address] Feb, [facility] [address] [id number], [place] [address] Feb, [facility] [address] [id number] [place] [address] Feb, [facility] [address] [id number] [place] [address] Feb, [facility] [address] [id number] [place] [address], [place] [address] Feb, [facility] [address] [id number] [place] [address] Feb, [facility] [address] [facility] [id number], [place] [address] Feb, [facility] [address] [id number], [place] [address] Feb, [facility] [address] [facility] [id number], [place] [address] Jan, [facility] [address] [facility] [id number], [place] [address] Jan, [facility] [address] [id number], [place] [address] Jan, [facility] [address] [id number], [place] [address] Jan, [facility] [address] [id number], [place] [address] 30 Jan, 2012 [facility] [address] [facility] [id number], [place] [address] Jan, [facility] [address] [facility] [id number], [place] [address] Jan, [facility] [address] [id number] [place] [address] 16 Jan, 2011 [facility] [address] [id number] [place] [address] 16 Jan, 2012 [facility] [address] [id number] [place] [address] 15 Jan, 2012 [facility] [address] [id number] [place] [address] 15 Jan, 2012 [facility] [address] [id number] [place] [address] 01 Jan, 2012 [facility] [address] [id number] [place] [address] 26 Sep, 2011 [facility] [address] [id number] [place] [address] 26 Sep, 2011 [facility] [address] [id number] [place] [address] 24 Sep, 2011 [facility] [address] [id number] [place] [address] 23 Sep, 2011 [facility] [address] [id number] [place] [address] 22 Sep, 2011 [facility] [address] [id number] [place] [address] 21 Sep, 2011 [facility] [address] [id number] [place] [address] 20 Sep, 2011 [facility] [address] [id number] [place] [address] 20 Sep, 2011 [facility] [address] [id number] [place] [address] 07 Sep, 2011 [facility] [address] [id number] [place] [address] 06 Sep, 2011 [facility] [address] [id number] [place] [address] Dec, [facility] [address] [id number] [place] [address] 05 Dec, 2011 [facility] [address] [id number] [place] [address] Nov, [facility] [address] [id number] [place] [address] Nov, [facility] [address] [id number] [place] [address] Nov, [facility] [address] [id number] [place] [address] Nov, [facility] [address] [id number] [place] [address] Nov, [facility] [address] [id number] [place] [address] Nov, [facility] [address] [id number] [place] [address] Nov, [facility] [address] [id number] [place] [address] Nov, [facility] [address] [id number] [place] [address] Oct, [facility] [address] [id number] [place] [address] Oct, [facility] [address] [id number] [place] [address] Oct, [facility] [address] [id number] [place] [address] Oct, [facility] [address] [id number] [place] [address] Oct, [facility] [address] [id number] [place] [address] Oct, [facility] [address] [id number] [place] [address] Oct, [facility] [address] [id number] [place] [address] Sep, [facility] [address] [id number] [place] [address] Sep, [facility] [address] [id number] [place] [address] August, [facility] [address] [id number] [place] [address] August, [facility] [address] [id number] [place] [address] August, [facility] [address] [id number] [place] [address] August, [facility] [address] [id number] [place] [address] Jul, [facility] [address] [id number] [place] [address] Jul, [facility] [address] [id number] [place] [address] Jul, [facility] [address] [id number] [place] [address] Jul, [facility] [address] [id number] [place] [address] Jul, [facility] [address] [id number] [place] [address] Jul, [facility] [address] [id number] [place] [address] Jul, [facility] [address] [id number] [place] [address] Jul, [facility] [address] [id number] [place] [address] Jul, [facility] [address] [id number] [place] [address] 23 Jun, 2011 [facility] [address] [id number] [place] [address] 19 Jun, 2011 [facility] [address] [id number] [place] [address] 15 Jun, 2011 [facility] [address] [id number] [place] [address] 14 Jun, 2011 [facility] [address] [id number] [place] [address] 12 Jun, 2011 [facility] [address] [id number] [place] [address] Jun, [facility] [address] [id number] [place] [address] Jun, [facility] [address] [id number] [place] [address] 25 May, 2011 [facility] [address] [id number] [place] [address] 24 May, 2011 [facility] [address] [id number] [place] [address] May, [facility] [address] [id number] [place] [address] May, [facility] [address] [id number] [place] [address] May, [facility] [place] [facility] [address] [id number] [place] [address] Apr, [facility] [address] [id number] [place] [address] Apr, [facility] [address] [id number] [place] [address] Apr, [facility] [address] [id number] [place] [address] Apr, [facility] [address] [id number] [place] [address] Apr, [facility] [place] [facility] [address] [id number] [place] [address] Mar, [facility] [address] [id number] [place] [address] Mar, [facility] [address] [id number] [place] [address] Mar, [facility] [address] [id number] [place] [address] Mar, [facility] [address] [id number] [place] [address] Mar, [facility] [address] [id number] [place] [address] Mar, [facility] [address] [id number] [place] [address] Mar, [facility] [address] [id number] [place] [address] Feb, [facility] [address] [facility] [id number] [place] [address] Feb, [facility] [place] [address] [id number] [place] [address] Feb, [facility] [address] [id number] [place] [address] Feb, [facility] [place] [facility] [address] [id number] [place] [address] Jan, [facility] [place] [facility] [address] [id number] [place] [address] Jan, [facility] [address] [facility] [id number] [place] [address] Jan, [facility] [address], [place] [address] Jan, [facility] [address], [place] [address] Nov, [facility] [id number], [place] [address] Mar, [facility] [id number], [place] [address] Mar, [facility] [address] [facility] [id number], [place] [address] Mar, [facility] [id number] [place] [address] Mar, [facility] [id number], [place] [address] Mar, [facility] [address], [place] [address] Mar, [facility] [address], [place] [address] Feb, [facility] [address], [place] [address] Feb, [facility] [address] [id number], [place] [address] Jan, [facility] [address], [place] [address] Jan, [facility] [address] [id number], [place] [address] Jan, IMMUNIZATIONS No Known Immunizations SOCIAL HISTORY Never Assessed REASON FOR VISIT [place] [place] VITAL SIGNS MEDICATIONS Unknown [...] Bladder surgery [facility] 03/2016 Surgical History Neurotransmitter placed 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 psych for SI 1988 Hospitalization History [facility]-Altered mental status 05/2017
[2018-10-26] MEDS ORDERED: LIDOCAINE 1% INJ 20 ML 20 ML VIAL INJ ONE (12:45)
[2018-10-26 12:48] LABS: ALANINE AMINOTRANSFERASE 13 U/L (0-55); ALBUMIN 4.9 GM/DL (3.2-4.5); ALKALINE PHOSPHATASE 111 U/L (40-136); BILIRUBIN,TOTAL 0.3 MG/DL (0.1-1.0); BUN/CREATININE RATIO 16; CALCIUM 10.2 MG/DL (8.5-10.1); CARBON DIOXIDE 23 MMOL/L (21-32); CHLORIDE 106 MMOL/L (98-107); CREATININE SERUM 1.37 MG/DL (0.60-1.30); GFR ESTIMATED 39; GLUCOSE 129 MG/DL (70-105); POTASSIUM 4.2 MMOL/L (3.6-5.0); SODIUM 145 MMOL/L (135-145); TOTAL PROTEIN 8.2 GM/DL (6.4-8.2)
--- NOTE | 2018-10-26 12:48 | NUR ---
PT REFUSING ICE BAG TO LEG.
--- NOTE | 2018-10-26 12:51 | Diagnostic Imaging Report ---
INDICATION: Fall, left lower leg pain FINDINGS: AP and lateral views of the left tibia and fibula show no fracture, dislocation or other acute bony abnormality. There is a 3 x 3 x 8 cm area of localized swelling anterior to the distal shaft of the tibia which is most consistent with a hematoma. IMPRESSION: Soft tissue mass most consistent with hematoma. No bony abnormality is seen. Dictated by: Dictated on workstation # [id number]
[2018-10-26] MEDS ORDERED: cefTRIAXone FOR IV USE 1,000 MG in WATER (STERILE) FOR INJECTION 10 ML IV ONE (13:00)
--- OUTSIDE RECORDS SUMMARY | 2018-10-26 14:27 | XMS REPORT | Clinical Summary ---
Author Author Admin, E Organization [facility] Address Unknown Phone Unavailable Allergies, [...] MD Urinary tract infection, site not specified BMI 40-44.9 Active David Marcelino MD Body Mass Index 40.0- 44.9, adult Obesity Class III (BMI >=40) Active David Marcelino MD Morbid obesity Medication List Medication Instructions Start Date Stop Date Generic Name NDC Status Provider Patient Instruction NYSTATIN 389428 UNIT/GM EXTERNAL CREAM Apply to rash 2-3 times a day and may repeat as needed NYSTATIN 13836650752 Active David Marcelino MD Active MONTELUKAST SODIUM 10 MG ORAL TABLET 1 pill by mouth nightly as needed for cough/cold MONTELUKAST SODIUM 07004898010 Active David Marcelino MD Active GEMFIBROZIL 600 MG ORAL TABLET 1 tab by mouth daily GEMFIBROZIL 44292616766 Active David Marcelino MD Active SUMATRIPTAN SUCCINATE 6 MG/0.5ML SUBCUTANEOUS SOLUTION 2 sprays in each nostril SUMATRIPTAN SUCCINATE 36006285686 Active David Marcelino MD Active IPRATROPIUM BROMIDE 0.03 % NASAL SOLUTION 2 sprays in each nostril IPRATROPIUM BROMIDE 61646170227 Active David Marcelino MD Active ZETIA 10 MG ORAL TABLET 1 tab by mouth daily EZETIMIBE 86101943383 Active David Marcelino MD Active DICLOFENAC SODIUM 1 % TRANSDERMAL GEL Apply to effected area daily DICLOFENAC SODIUM 09918144360 Active David Marcelino MD Active BREO ELLIPTA 100-25 MCG/INH INHALATION AEROSOL POWDER BREATH ACTIVATED 2 puffs daily FLUTICASONE FUROATE-VILANTEROL 73298419181 Active David Marcelino MD Active NORVASC 10 MG ORAL TABLET 1 tablet by mouth daily AMLODIPINE BESYLATE 70092654146 No Longer Active David Marcelino MD Active LISINOPRIL 10 MG ORAL TABLET 1 tablet by mouth daily LISINOPRIL 29921737298 Active David Marcelino MD Active GABAPENTIN 100 MG ORAL CAPSULE 1 tab by mouth three times daily GABAPENTIN 50293521628 Active David Marcelino MD Active ASPIRIN 325 MG ORAL TABLET 1 tab by mouth daily ASPIRIN 24893924391 Active David Marcelino MD Active CETIRIZINE HCL 10 MG ORAL TABLET 1 po qd PRN Allergies CETIRIZINE HCL 95065297727 No Longer Active David Marcelino MD Active SYMBICORT 160-4.5 MCG/ACT INHALATION AEROSOL 2 puff BID BUDESONIDE- FORMOTEROL FUMARATE 62033338993 No Longer Active David Marcelino MD Active PROVENTIL HFA 108 (90 BASE) MCG/ACT INHALATION AEROSOL SOLUTION 2 inhaltions prn ALBUTEROL SULFATE 28844199818 No Longer Active David Marcelino MD Active LOSARTAN POTASSIUM 100 MG ORAL TABLET 1 pill by mouth daily, for blood pressure LOSARTAN POTASSIUM 15323587199 No Longer Active David Marcelino MD Active EQ FIBER THERAPY 0.52 GM ORAL CAPSULE 1 cap by mouth three times daily PSYLLIUM 07891452897 No Longer Active David Marcelino MD Active MACROBID 100 MG ORAL CAPSULE Take one by mouth daily NITROFURANTOIN MONOHYD MACRO 70546720223 No Longer Active David Marcelino MD Active CYCLOBENZAPRINE HCL 10 MG ORAL TABLET 1 tablet by mouth three times daily as needed for muscle spasm/pain CYCLOBENZAPRINE HCL 54700549680 No Longer Active David Marcelino MD Active VITAMIN C PLUS 1000 MG ORAL TABLET 3 tabs by mouth three times daily BIOFLAVONOID PRODUCTS 50036882663 Active J Jarrod Marcelino MD Active TOPROL XL 50 MG ORAL TABLET EXTENDED RELEASE 24 HOUR 1 tab by mouth daily METOPROLOL SUCCINATE 65766526120 Active David Marcelino MD Active LEVOTHYROXINE SODIUM 150 MCG ORAL TABLET 1 pill by mouth daily, for thyroid LEVOTHYROXINE SODIUM 56939560269 Active David Marcelino MD Active REQUIP 5 MG ORAL TABLET 2 tabs by mouth daily ROPINIROLE HCL 81162238958 Active J Jarrod Marcelino MD Active LASIX 40 MG ORAL TABLET 1 tablet by mouth daily FUROSEMIDE 37906373959 No Longer Active David Marcelino MD Active KLOR-CON M10 10 MEQ ORAL TABLET EXTENDED RELEASE 1 tablet by mouth daily POTASSIUM CHLORIDE GI CR 46227498884 No Longer Active David Marcelino MD Active KLONOPIN 1 MG ORAL TABLET 1 tab by mouth daily CLONAZEPAM 04069724430 No Longer Active David Marcelino MD Active AMITRIPTYLINE HCL 25 MG ORAL TABLET 1 tab by mouth daily at bedtime AMITRIPTYLINE HCL 93022916947 No Longer Active David Marcelino MD Active AMBIEN 5 MG ORAL TABLET 1 po qHS PRN Insomnia ZOLPIDEM TARTRATE 14373861739 No Longer Active David Marcelino MD Active VESICARE 10 MG ORAL TABLET 1 pill by mouth daily for overactive bladder SOLIFENACIN SUCCINATE 91139972516 No Longer Active David Marcelino MD Active FISH OIL CONCENTRATE 1000 MG ORAL CAPSULE 3 caps by mouth daily OMEGA-3 FATTY ACIDS 99038486373 Active David Marcelino MD Active VITAMIN D3 53605 UNIT ORAL TABLET 1 cap by mouth monthly CHOLECALCIFEROL 67051980575 Active David Marcelino MD Active PROTONIX 40 MG ORAL TABLET DELAYED RELEASE 1 po q a.m. PANTOPRAZOLE SODIUM 75088480616 Active David Marcelino MD Active LYRICA 150 MG ORAL CAPSULE 1 tab by mouth 3 times daily PREGABALIN 07898338634 Active David Marcelino MD Active VERAMYST 27.5 MCG/SPRAY NASAL SUSPENSION 1 spray in nostril as needed FLUTICASONE FUROATE 89980667194 Active David Marcelino MD Active FERROUS SULFATE 325 (65 Fe) MG ORAL TABLET 1 tablet by mouth daily FERROUS SULFATE 92702769635 Active David Marcelino MD Active CYMBALTA 60 MG ORAL CAPSULE DELAYED RELEASE PARTICLES 1 cap by mouth daily DULOXETINE HCL 17555933826 Active David Marcelino MD Active VESICARE 10 MG ORAL TABLET 1 pill by mouth daily for overactive bladder VESICARE 10 MG ORAL TABLET SOLIFENACIN SUCCINATE Inactive AMBIEN 5 MG ORAL TABLET 1 po qHS PRN Insomnia AMBIEN 5 MG ORAL TABLET 764559 ZOLPIDEM TARTRATE Inactive AMITRIPTYLINE HCL 25 MG ORAL TABLET 1 tab by mouth daily at bedtime AMITRIPTYLINE HCL 25 MG ORAL TABLET 548085 AMITRIPTYLINE HCL Inactive KLONOPIN 1 MG ORAL TABLET 1 tab by mouth daily KLONOPIN 1 MG ORAL TABLET 520028 CLONAZEPAM Inactive KLOR-CON M10 10 MEQ ORAL TABLET EXTENDED RELEASE 1 tablet by mouth daily KLOR-CON M10 10 MEQ ORAL TABLET EXTENDED RELEASE 9214256 POTASSIUM CHLORIDE GI CR Inactive LASIX 40 MG ORAL TABLET 1 tablet by mouth daily LASIX 40 MG ORAL TABLET 825811 FUROSEMIDE Inactive CYCLOBENZAPRINE HCL 10 MG ORAL TABLET 1 tablet by mouth three times daily as needed for muscle spasm/pain CYCLOBENZAPRINE HCL 10 MG ORAL TABLET 700663 CYCLOBENZAPRINE HCL Inactive MACROBID 100 MG ORAL CAPSULE Take one by mouth daily MACROBID 100 MG ORAL CAPSULE 1879707 NITROFURANTOIN MONOHYD MACRO Inactive EQ FIBER THERAPY 0.52 GM ORAL CAPSULE 1 cap by mouth three times daily EQ FIBER THERAPY 0.52 GM ORAL CAPSULE PSYLLIUM Inactive LOSARTAN POTASSIUM 100 MG ORAL TABLET 1 pill by mouth daily, for blood pressure LOSARTAN POTASSIUM 100 MG ORAL TABLET 495456 LOSARTAN POTASSIUM Inactive PROVENTIL HFA 108 (90 BASE) MCG/ACT INHALATION AEROSOL SOLUTION 2 inhaltions prn PROVENTIL HFA 108 (90 BASE) MCG/ACT INHALATION AEROSOL SOLUTION ALBUTEROL SULFATE Inactive SYMBICORT 160-4.5 MCG/ACT INHALATION AEROSOL 2 puff BID SYMBICORT 160-4.5 MCG/ACT INHALATION AEROSOL BUDESONIDE-FORMOTEROL FUMARATE Inactive CETIRIZINE HCL 10 MG ORAL TABLET 1 po qd PRN Allergies CETIRIZINE HCL 10 MG ORAL TABLET 1104385 CETIRIZINE HCL Inactive NORVASC 10 MG ORAL TABLET 1 tablet by mouth daily NORVASC 10 MG ORAL TABLET 885503 AMLODIPINE BESYLATE Inactive Immunizations Vaccine Administration Date Value Standard Description influenza immunization (Flu Vax) has been administered Done according to patient influenza virus vaccine, unspecified formulation Vital Signs Date Name Value Unit Range Description blood pressure, diastolic, repeated by physician 67 BP montalvo blood pressure, diastolic 67 mm[Hg] BP montalvo blood pressure, systolic, repeated by physician 130 BP sys blood pressure, systolic 130 mm[Hg] BP sys height E&M 63 [in_us] Bdy height pulse rate E&M 60 /min Heart rate temperature E&M 98.3 [degF] Body temperature weight E&M 226 [lb_av] Weight Measured blood pressure, diastolic, repeated [...] Value Unit Range Description Office Visit: f/u macrobid/interstim - Chemistry RBC, urine, dipstick negative Office Visit: f/u macrobid/interstim - PMH sexually transmitted disease no risk noted Office Visit: f/u macrobid/interstim - Urinalysis appearance, urine clear urine color yellow specific gravity, urine 1.005 pH, urine, semiquantitative 5.0 protein, urine, semiquantitative (dipstick) negative glucose, urine, semiquantitative negative ketones, urine, by test strip negative bilirubin, urine negative nitrite, urine, semiquantitative negative urobilinogen, urine, semiquantitative (dipstick) 0.2 leukocyte esterase, urine, by dipstick negative Office Visit: f/u uti - Chemistry RBC, [...] negative Encounters Code Encounter Date Provider Facility CPT-83057 Level 3 Est. 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 Patient 21:01:28 CDT David Marcelino MD [facility] [place] CPT-86587 Level 3 Est. Patient 21:05:34 FINISHING SUPERVISOR David Marcelino MD [facility] CPT-27106 Level 4 New Patient 19:44:00 FINISHING SUPERVISOR David Marcelino MD [facility] Procedures Code Procedure Name Date Entry Date Standard Description CPT-41040 Abdomen, 1 view 16:35:07 FINISHING SUPERVISOR CPT-01441 Interstim trial 08:36:54 CDT CPT-35951 Interstim trial 21:00:45 CDT CPT-45495 Postop F/U Visit 20:37:06 FINISHING SUPERVISOR CPT-55076 Postop F/U Visit 15:28:22 FINISHING SUPERVISOR
--- OUTSIDE RECORDS SUMMARY | 2018-10-26 14:28 | XMS REPORT | Clinical Summary ---
Author Author Admin, E Organization [facility] Address Unknown Phone Unavailable Allergies, [...] Name NDC Status Provider Patient Instruction NYSTATIN 431557 UNIT/GM EXTERNAL CREAM Apply to rash 2-3 times a day and may repeat as needed NYSTATIN 73387911364 Active David Marcelino MD Active MONTELUKAST SODIUM 10 MG ORAL TABLET 1 pill by mouth nightly as needed for cough/cold MONTELUKAST SODIUM 28461922633 Active David Marcelino MD Active GEMFIBROZIL 600 MG ORAL TABLET 1 tab by mouth daily GEMFIBROZIL 57290994453 Active David Marcelino MD Active SUMATRIPTAN SUCCINATE 6 MG/0.5ML SUBCUTANEOUS SOLUTION 2 sprays in each nostril SUMATRIPTAN SUCCINATE 25547511093 Active David Marcelino MD Active IPRATROPIUM BROMIDE 0.03 % NASAL SOLUTION 2 sprays in each nostril IPRATROPIUM BROMIDE 47346666185 Active David Marcelino MD Active ZETIA 10 MG ORAL TABLET 1 tab by mouth daily EZETIMIBE 56095851896 Active David Marcelino MD Active DICLOFENAC SODIUM 1 % TRANSDERMAL GEL Apply to effected area daily DICLOFENAC SODIUM 74345797962 Active David Marcelino MD Active BREO ELLIPTA 100-25 MCG/INH INHALATION AEROSOL POWDER BREATH ACTIVATED 2 puffs daily FLUTICASONE FUROATE-VILANTEROL 36078280619 Active David Marcelino MD Active NORVASC 10 MG ORAL TABLET 1 tablet by mouth daily AMLODIPINE BESYLATE 20390248851 No Longer Active David Marcelino MD Active LISINOPRIL 10 MG ORAL TABLET 1 tablet by mouth daily LISINOPRIL 97723510401 Active David Marcelino MD Active GABAPENTIN 100 MG ORAL CAPSULE 1 tab by mouth three times daily GABAPENTIN 23773965644 Active David Marcelino MD Active ASPIRIN 325 MG ORAL TABLET 1 tab by mouth daily ASPIRIN 56124193130 Active David Marcelino MD Active CETIRIZINE HCL 10 MG ORAL TABLET 1 po qd PRN Allergies CETIRIZINE HCL 18831560790 No Longer Active David Marcelino MD Active SYMBICORT 160-4.5 MCG/ACT INHALATION AEROSOL 2 puff BID BUDESONIDE- FORMOTEROL FUMARATE 99103492975 No Longer Active David Marcelino MD Active PROVENTIL HFA 108 (90 BASE) MCG/ACT INHALATION AEROSOL SOLUTION 2 inhaltions prn ALBUTEROL SULFATE 70946092099 No Longer Active David Marcelino MD Active LOSARTAN POTASSIUM 100 MG ORAL TABLET 1 pill by mouth daily, for blood pressure LOSARTAN POTASSIUM 96614605159 No Longer Active David Marcelino MD Active EQ FIBER THERAPY 0.52 GM ORAL CAPSULE 1 cap by mouth three times daily PSYLLIUM 09162764180 No Longer Active David Marcelino MD Active MACROBID 100 MG ORAL CAPSULE Take one by mouth daily NITROFURANTOIN MONOHYD MACRO 99392565693 No Longer Active David Marcelino MD Active CYCLOBENZAPRINE HCL 10 MG ORAL TABLET 1 tablet by mouth three times daily as needed for muscle spasm/pain CYCLOBENZAPRINE HCL 16071453748 No Longer Active David Marcelino MD Active VITAMIN C PLUS 1000 MG ORAL TABLET 3 tabs by mouth three times daily BIOFLAVONOID PRODUCTS 96820862148 Active J Jarrod Marcelino MD Active TOPROL XL 50 MG ORAL TABLET EXTENDED RELEASE 24 HOUR 1 tab by mouth daily METOPROLOL SUCCINATE 61489113821 Active David Marcelino MD Active LEVOTHYROXINE SODIUM 150 MCG ORAL TABLET 1 pill by mouth daily, for thyroid LEVOTHYROXINE SODIUM 38851118216 Active David Marcelino MD Active REQUIP 5 MG ORAL TABLET 2 tabs by mouth daily ROPINIROLE HCL 01321066081 Active J Jarrod Marcelino MD Active LASIX 40 MG ORAL TABLET 1 tablet by mouth daily FUROSEMIDE 84979772764 No Longer Active David Marcelino MD Active KLOR-CON M10 10 MEQ ORAL TABLET EXTENDED RELEASE 1 tablet by mouth daily POTASSIUM CHLORIDE GI CR 05950250528 No Longer Active David Marcelino MD Active KLONOPIN 1 MG ORAL TABLET 1 tab by mouth daily CLONAZEPAM 98924941512 No Longer Active David Marcelino MD Active AMITRIPTYLINE HCL 25 MG ORAL TABLET 1 tab by mouth daily at bedtime AMITRIPTYLINE HCL 21126559019 No Longer Active David Marcelino MD Active AMBIEN 5 MG ORAL TABLET 1 po qHS PRN Insomnia ZOLPIDEM TARTRATE 94646821408 No Longer Active David Marcelino MD Active VESICARE 10 MG ORAL TABLET 1 pill by mouth daily for overactive bladder SOLIFENACIN SUCCINATE 49396542776 No Longer Active David Marcelino MD Active FISH OIL CONCENTRATE 1000 MG ORAL CAPSULE 3 caps by mouth daily OMEGA-3 FATTY ACIDS 74692922726 Active David Marcelino MD Active VITAMIN D3 22450 UNIT ORAL TABLET 1 cap by mouth monthly CHOLECALCIFEROL 83694595071 Active David Marcelino MD Active PROTONIX 40 MG ORAL TABLET DELAYED RELEASE 1 po q a.m. PANTOPRAZOLE SODIUM 83712657986 Active David Marcelino MD Active LYRICA 150 MG ORAL CAPSULE 1 tab by mouth 3 times daily PREGABALIN 86585467710 Active David Marcelino MD Active VERAMYST 27.5 MCG/SPRAY NASAL SUSPENSION 1 spray in nostril as needed FLUTICASONE FUROATE 49555678892 Active David Marcelino MD Active FERROUS SULFATE 325 (65 Fe) MG ORAL TABLET 1 tablet by mouth daily FERROUS SULFATE 15771100137 Active David Marcelino MD Active CYMBALTA 60 MG ORAL CAPSULE DELAYED RELEASE PARTICLES 1 cap by mouth daily DULOXETINE HCL 92104903399 Active David Marcelino MD Active VESICARE 10 MG ORAL TABLET 1 pill by mouth daily for overactive bladder VESICARE 10 MG ORAL TABLET SOLIFENACIN SUCCINATE Inactive AMBIEN 5 MG ORAL TABLET 1 po qHS PRN Insomnia AMBIEN 5 MG ORAL TABLET 224550 ZOLPIDEM TARTRATE Inactive AMITRIPTYLINE HCL 25 MG ORAL TABLET 1 tab by mouth daily at bedtime AMITRIPTYLINE HCL 25 MG ORAL TABLET 451410 AMITRIPTYLINE HCL Inactive KLONOPIN 1 MG ORAL TABLET 1 tab by mouth daily KLONOPIN 1 MG ORAL TABLET 614583 CLONAZEPAM Inactive KLOR-CON M10 10 MEQ ORAL TABLET EXTENDED RELEASE 1 tablet by mouth daily KLOR-CON M10 10 MEQ ORAL TABLET EXTENDED RELEASE 1760916 POTASSIUM CHLORIDE GI CR Inactive LASIX 40 MG ORAL TABLET 1 tablet by mouth daily LASIX 40 MG ORAL TABLET 126917 FUROSEMIDE Inactive CYCLOBENZAPRINE HCL 10 MG ORAL TABLET 1 tablet by mouth three times daily as needed for muscle spasm/pain CYCLOBENZAPRINE HCL 10 MG ORAL TABLET 564132 CYCLOBENZAPRINE HCL Inactive MACROBID 100 MG ORAL CAPSULE Take one by mouth daily MACROBID 100 MG ORAL CAPSULE 3385526 NITROFURANTOIN MONOHYD MACRO Inactive EQ FIBER THERAPY 0.52 GM ORAL CAPSULE 1 cap by mouth three times daily EQ FIBER THERAPY 0.52 GM ORAL CAPSULE PSYLLIUM Inactive LOSARTAN POTASSIUM 100 MG ORAL TABLET 1 pill by mouth daily, for blood pressure LOSARTAN POTASSIUM 100 MG ORAL TABLET 874481 LOSARTAN POTASSIUM Inactive PROVENTIL HFA 108 (90 BASE) MCG/ACT INHALATION AEROSOL SOLUTION 2 inhaltions prn PROVENTIL HFA 108 (90 BASE) MCG/ACT INHALATION AEROSOL SOLUTION ALBUTEROL SULFATE Inactive SYMBICORT 160-4.5 MCG/ACT INHALATION AEROSOL 2 puff BID SYMBICORT 160-4.5 MCG/ACT INHALATION AEROSOL BUDESONIDE-FORMOTEROL FUMARATE Inactive CETIRIZINE HCL 10 MG ORAL TABLET 1 po qd PRN Allergies CETIRIZINE HCL 10 MG ORAL TABLET 6739840 CETIRIZINE HCL Inactive NORVASC 10 MG ORAL TABLET 1 tablet by mouth daily NORVASC 10 MG ORAL TABLET 937297 AMLODIPINE BESYLATE Inactive Immunizations Vaccine Administration Date [...] negative Encounters Code Encounter Date Provider Facility CPT-88157 Level 3 Est. 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 Patient 21:01:28 CDT David Marcelino MD [facility] [place] CPT-97968 Level 3 Est. Patient 21:05:34 ELECTRICAL CONTINUITY INSPECTOR David Marcelino MD [facility] CPT-17852 Level 4 New Patient 19:44:00 ELECTRICAL CONTINUITY INSPECTOR David Marcelino MD [facility] Procedures Code Procedure Name Date Entry Date Standard Description CPT-25151 Abdomen, 1 view 16:35:07 ELECTRICAL CONTINUITY INSPECTOR CPT-62100 Interstim trial 08:36:54 CDT CPT-17395 Interstim trial 21:00:45 CDT CPT-76076 Postop F/U Visit 20:37:06 ELECTRICAL CONTINUITY INSPECTOR CPT-50542 Postop F/U Visit 15:28:22 ELECTRICAL CONTINUITY INSPECTOR
--- OUTSIDE RECORDS SUMMARY | 2018-10-26 14:28 | XMS REPORT | Clinical Summary ---
Author Author Admin, E Organization [facility] Address Unknown Phone Unavailable Allergies, Adverse [...] Name NDC Status Provider Patient Instruction NYSTATIN 436536 UNIT/GM EXTERNAL CREAM Apply to rash 2-3 times a day and may repeat as needed NYSTATIN 01496818469 Active David Marcelino MD Active MONTELUKAST SODIUM 10 MG ORAL TABLET 1 pill by mouth nightly as needed for cough/cold MONTELUKAST SODIUM 00822565422 Active David Marcelino MD Active GEMFIBROZIL 600 MG ORAL TABLET 1 tab by mouth daily GEMFIBROZIL 90318462524 Active David Marcelino MD Active SUMATRIPTAN SUCCINATE 6 MG/0.5ML SUBCUTANEOUS SOLUTION 2 sprays in each nostril SUMATRIPTAN SUCCINATE 44969968555 Active David Marcelino MD Active IPRATROPIUM BROMIDE 0.03 % NASAL SOLUTION 2 sprays in each nostril IPRATROPIUM BROMIDE 51133573286 Active David Marcelino MD Active ZETIA 10 MG ORAL TABLET 1 tab by mouth daily EZETIMIBE 86443724843 Active David Marcelino MD Active DICLOFENAC SODIUM 1 % TRANSDERMAL GEL Apply to effected area daily DICLOFENAC SODIUM 43167093415 Active David Marcelino MD Active BREO ELLIPTA 100-25 MCG/INH INHALATION AEROSOL POWDER BREATH ACTIVATED 2 puffs daily FLUTICASONE FUROATE-VILANTEROL 62545808892 Active David Marcelino MD Active NORVASC 10 MG ORAL TABLET 1 tablet by mouth daily AMLODIPINE BESYLATE 15771521447 No Longer Active David Marcelino MD Active LISINOPRIL 10 MG ORAL TABLET 1 tablet by mouth daily LISINOPRIL 08748031661 Active David Marcelino MD Active GABAPENTIN 100 MG ORAL CAPSULE 1 tab by mouth three times daily GABAPENTIN 43232337505 Active David Marcelino MD Active ASPIRIN 325 MG ORAL TABLET 1 tab by mouth daily ASPIRIN 85010905960 Active David Marcelino MD Active CETIRIZINE HCL 10 MG ORAL TABLET 1 po qd PRN Allergies CETIRIZINE HCL 06813058249 No Longer Active David Marcelino MD Active SYMBICORT 160-4.5 MCG/ACT INHALATION AEROSOL 2 puff BID BUDESONIDE- FORMOTEROL FUMARATE 93417903513 No Longer Active David Marcelino MD Active PROVENTIL HFA 108 (90 BASE) MCG/ACT INHALATION AEROSOL SOLUTION 2 inhaltions prn ALBUTEROL SULFATE 07712458139 No Longer Active David Marcelino MD Active LOSARTAN POTASSIUM 100 MG ORAL TABLET 1 pill by mouth daily, for blood pressure LOSARTAN POTASSIUM 70551061234 No Longer Active David Marcelino MD Active EQ FIBER THERAPY 0.52 GM ORAL CAPSULE 1 cap by mouth three times daily PSYLLIUM 30853606207 No Longer Active David Marcelino MD Active MACROBID 100 MG ORAL CAPSULE Take one by mouth daily NITROFURANTOIN MONOHYD MACRO 62253632263 No Longer Active David Marcelino MD Active CYCLOBENZAPRINE HCL 10 MG ORAL TABLET 1 tablet by mouth three times daily as needed for muscle spasm/pain CYCLOBENZAPRINE HCL 81486571970 No Longer Active David Marcelino MD Active VITAMIN C PLUS 1000 MG ORAL TABLET 3 tabs by mouth three times daily BIOFLAVONOID PRODUCTS 60606623615 Active J Jarrod Marcelino MD Active TOPROL XL 50 MG ORAL TABLET EXTENDED RELEASE 24 HOUR 1 tab by mouth daily METOPROLOL SUCCINATE 54760956172 Active David Marcelino MD Active LEVOTHYROXINE SODIUM 150 MCG ORAL TABLET 1 pill by mouth daily, for thyroid LEVOTHYROXINE SODIUM 38401418304 Active David Marcelino MD Active REQUIP 5 MG ORAL TABLET 2 tabs by mouth daily ROPINIROLE HCL 92368537194 Active J Jarrod Marcelino MD Active LASIX 40 MG ORAL TABLET 1 tablet by mouth daily FUROSEMIDE 51363101752 No Longer Active David Marcelino MD Active KLOR-CON M10 10 MEQ ORAL TABLET EXTENDED RELEASE 1 tablet by mouth daily POTASSIUM CHLORIDE GI CR 05768904734 No Longer Active David Marcelino MD Active KLONOPIN 1 MG ORAL TABLET 1 tab by mouth daily CLONAZEPAM 50226900357 No Longer Active David Marcelino MD Active AMITRIPTYLINE HCL 25 MG ORAL TABLET 1 tab by mouth daily at bedtime AMITRIPTYLINE HCL 62551202300 No Longer Active David Marcelino MD Active AMBIEN 5 MG ORAL TABLET 1 po qHS PRN Insomnia ZOLPIDEM TARTRATE 01113503487 No Longer Active David Marcelino MD Active VESICARE 10 MG ORAL TABLET 1 pill by mouth daily for overactive bladder SOLIFENACIN SUCCINATE 65792616029 No Longer Active David Marcelino MD Active FISH OIL CONCENTRATE 1000 MG ORAL CAPSULE 3 caps by mouth daily OMEGA-3 FATTY ACIDS 47454975215 Active David Marcelino MD Active VITAMIN D3 84301 UNIT ORAL TABLET 1 cap by mouth monthly CHOLECALCIFEROL 49621680792 Active David Marcelino MD Active PROTONIX 40 MG ORAL TABLET DELAYED RELEASE 1 po q a.m. PANTOPRAZOLE SODIUM 52254447683 Active David Marcelino MD Active LYRICA 150 MG ORAL CAPSULE 1 tab by mouth 3 times daily PREGABALIN 46454593317 Active David Marcelino MD Active VERAMYST 27.5 MCG/SPRAY NASAL SUSPENSION 1 spray in nostril as needed FLUTICASONE FUROATE 09577400602 Active David Marcelino MD Active FERROUS SULFATE 325 (65 Fe) MG ORAL TABLET 1 tablet by mouth daily FERROUS SULFATE 58849504187 Active David Marcelino MD Active CYMBALTA 60 MG ORAL CAPSULE DELAYED RELEASE PARTICLES 1 cap by mouth daily DULOXETINE HCL 49758348835 Active David Marcelino MD Active VESICARE 10 MG ORAL TABLET 1 pill by mouth daily for overactive bladder VESICARE 10 MG ORAL TABLET SOLIFENACIN SUCCINATE Inactive AMBIEN 5 MG ORAL TABLET 1 po qHS PRN Insomnia AMBIEN 5 MG ORAL TABLET 999600 ZOLPIDEM TARTRATE Inactive AMITRIPTYLINE HCL 25 MG ORAL TABLET 1 tab by mouth daily at bedtime AMITRIPTYLINE HCL 25 MG ORAL TABLET 503553 AMITRIPTYLINE HCL Inactive KLONOPIN 1 MG ORAL TABLET 1 tab by mouth daily KLONOPIN 1 MG ORAL TABLET 335309 CLONAZEPAM Inactive KLOR-CON M10 10 MEQ ORAL TABLET EXTENDED RELEASE 1 tablet by mouth daily KLOR-CON M10 10 MEQ ORAL TABLET EXTENDED RELEASE 3506780 POTASSIUM CHLORIDE GI CR Inactive LASIX 40 MG ORAL TABLET 1 tablet by mouth daily LASIX 40 MG ORAL TABLET 449359 FUROSEMIDE Inactive CYCLOBENZAPRINE HCL 10 MG ORAL TABLET 1 tablet by mouth three times daily as needed for muscle spasm/pain CYCLOBENZAPRINE HCL 10 MG ORAL TABLET 550121 CYCLOBENZAPRINE HCL Inactive MACROBID 100 MG ORAL CAPSULE Take one by mouth daily MACROBID 100 MG ORAL CAPSULE 9343825 NITROFURANTOIN MONOHYD MACRO Inactive EQ FIBER THERAPY 0.52 GM ORAL CAPSULE 1 cap by mouth three times daily EQ FIBER THERAPY 0.52 GM ORAL CAPSULE PSYLLIUM Inactive LOSARTAN POTASSIUM 100 MG ORAL TABLET 1 pill by mouth daily, for blood pressure LOSARTAN POTASSIUM 100 MG ORAL TABLET 323423 LOSARTAN POTASSIUM Inactive PROVENTIL HFA 108 (90 BASE) MCG/ACT INHALATION AEROSOL SOLUTION 2 inhaltions prn PROVENTIL HFA 108 (90 BASE) MCG/ACT INHALATION AEROSOL SOLUTION ALBUTEROL SULFATE Inactive SYMBICORT 160-4.5 MCG/ACT INHALATION AEROSOL 2 puff BID SYMBICORT 160-4.5 MCG/ACT INHALATION AEROSOL BUDESONIDE-FORMOTEROL FUMARATE Inactive CETIRIZINE HCL 10 MG ORAL TABLET 1 po qd PRN Allergies CETIRIZINE HCL 10 MG ORAL TABLET 9078091 CETIRIZINE HCL Inactive NORVASC 10 MG ORAL TABLET 1 tablet by mouth daily NORVASC 10 MG ORAL TABLET 384302 AMLODIPINE BESYLATE Inactive Immunizations Vaccine Administration Date [...] negative Encounters Code Encounter Date Provider Facility CPT-83897 Level 3 Est. 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 CPT-04352 Level 3 Est. Patient 21:01:28 CDT David Marcelino MD [facility] [place] CPT-14130 Level 3 Est. Patient 21:05:34 WASH BARREL LEADER David Marcelino MD [facility] CPT-27788 Level 4 New Patient 19:44:00 WASH BARREL LEADER David Marcelino MD [facility] Procedures Code Procedure Name Date Entry Date Standard Description CPT-22872 Abdomen, 1 view 16:35:07 WASH BARREL LEADER CPT-44918 Interstim trial 08:36:54 CDT CPT-79043 Interstim trial 21:00:45 CDT CPT-54957 Postop F/U Visit 20:37:06 WASH BARREL LEADER CPT-97993 Postop F/U Visit 15:28:22 WASH BARREL LEADER
[2018-10-26] MEDS ORDERED: CEFD300C3 PO (14:38)
[2018-10-26 15:15] VITALS: BP 141/88
== END 2018-10-26 15:16 | disposition home or self-care (01) ==
LOC: EDUNIT# 12:04 → ER 12:05
DX: S80.12XA Contusion of left lower leg, initial encounter (principal); G43.909 Migraine, unspecified, not intractable, without status migrainosus; J45.909 Unspecified asthma, uncomplicated; G47.30 Sleep apnea, unspecified; I10 Essential (primary) hypertension; E78.00 Pure hypercholesterolemia, unspecified; I25.10 Atherosclerotic heart disease of native coronary artery without angina pectoris; K21.9 Gastro-esophageal reflux disease without esophagitis; M79.7 Fibromyalgia; E03.9 Hypothyroidism, unspecified; F41.9 Anxiety disorder, unspecified; F32.9 Major depressive disorder, single episode, unspecified; Z82.49 Family history of ischemic heart disease and other diseases of the circulatory system; Z90.49 Acquired absence of other specified parts of digestive tract; Z90.710 Acquired absence of both cervix and uterus; Z77.22 Contact with and (suspected) exposure to environmental tobacco smoke (acute) (chronic); Z96.652 Presence of left artificial knee joint; Z88.6 Allergy status to analgesic agent; Z88.2 Allergy status to sulfonamides; Z88.8 Allergy status to other drugs, medicaments and biological substances; Z79.82 Long term (current) use of aspirin; Z79.51 Long term (current) use of inhaled steroids; Z80.8 Family history of malignant neoplasm of other organs or systems
CPT/HCPCS: 36415; 73590; 80053; 85025; 96374; 96375; 96376

== ENCOUNTER → 2018-11-08 | Outpatient (CLI) | payer MEDICARE, MEDICAID ==
[~2018-11-08] MED LIST changes: -DULO60CA58 PO; +DULO60CA59 PO
== END ==
LOC: WOUNDCARE 08:55
PROVIDERS: ATTEND Nurse Practitioner
DX: L97.222 Non-pressure chronic ulcer of left calf with fat layer exposed (principal); I96 Gangrene, not elsewhere classified; L98.422 Non-pressure chronic ulcer of back with fat layer exposed
CPT/HCPCS: 11042

== ENCOUNTER → 2018-11-08 | Outpatient (CLI) | payer MEDICARE ==
[~2018-11-08] MED LIST changes: +DULO60CA58 PO; -DULO60CA59 PO
[2018-11-08 11:15] LABS: BASOPHILS # (AUTO) 0.1 10^3/uL (0.0-0.1); BASOPHILS % (AUTO) 2 % (0-10); EOSINOPHILS # (AUTO) 0.6 10^3/uL (0.0-0.3); EOSINOPHILS % (AUTO) 8 % (0-10); HEMATOCRIT 36 % (35-52); HEMOGLOBIN 11.9 G/DL (11.5-16.0); LYMPHOCYTES # (AUTO) 2.2 X 10^3 (1.0-4.0); LYMPHOCYTES % (AUTO) 29 % (12-44); MEAN CORPUSCULAR HEMOGLOBIN 31 PG (25-34); MEAN CORPUSCULAR HGB CONC 33 G/DL (32-36); MEAN CORPUSCULAR VOLUME 94 FL (80-99); MEAN PLATELET VOLUME 10.5 FL (7.4-10.4); MONOCYTES # (AUTO) 0.6 X 10^3 (0.0-1.0); MONOCYTES % (AUTO) 8 % (0-12); NEUTROPHILS # (AUTO) 4.1 X 10^3 (1.8-7.8); NEUTROPHILS % (AUTO) 53 % (42-75); PLATELET COUNT 290 10^3/uL (130-400); RED CELL DISTRIBUTION WIDTH 13.3 % (10.0-14.5); WHITE BLOOD COUNT 7.7 10^3/uL (4.3-11.0)
[2018-11-08 11:35] LABS: ALBUMIN 4.5 GM/DL (3.2-4.5); BILIRUBIN,TOTAL 0.4 MG/DL (0.1-1.0); CALCIUM 10.1 MG/DL (8.5-10.1); CREATININE SERUM 1.24 MG/DL (0.60-1.30); POTASSIUM 4.3 MMOL/L (3.6-5.0); TOTAL PROTEIN 7.4 GM/DL (6.4-8.2)
== END ==
LOC: LAB 10:59
PROVIDERS: ATTEND Nurse Practitioner
DX: L97.222 Non-pressure chronic ulcer of left calf with fat layer exposed (principal)
CPT/HCPCS: 36415; 80053; 84134; 85025

== ENCOUNTER → 2018-11-19 | Outpatient (CLI) | payer MEDICARE, MEDICAID ==
[~2018-11-19] MED LIST changes: -DULO60CA58 PO; +DULO60CA59 PO
== END ==
LOC: WOUNDCARE 14:18
PROVIDERS: ATTEND Surgery
DX: L97.222 Non-pressure chronic ulcer of left calf with fat layer exposed (principal); I87.332 Chronic venous hypertension (idiopathic) with ulcer and inflammation of left lower extremity; I96 Gangrene, not elsewhere classified; G60.8 Other hereditary and idiopathic neuropathies
CPT/HCPCS: 11042

== ENCOUNTER → 2018-11-22 | Outpatient (CLI) | payer MEDICARE, MEDICAID ==
--- NOTE | 2018-11-22 19:20 | Diagnostic Imaging Report ---
INDICATION: Routine screening. COMPARISON: Comparison is made with prior mammograms from 10/15/2017 and 10/13/2016. TECHNIQUE: 2-D and 3-D bilateral screening mammography was performed. The current study was also evaluated with a Computer Aided Detection (CAD) system. 3-D tomosynthesis was also performed and reviewed. FINDINGS: Scattered fibroglandular densities are identified bilaterally. No mass or malignant-appearing microcalcifications are seen. The axillae are unremarkable. IMPRESSION: No mammographic features suspicious for malignancy are identified. ACR BI-RADS Category 1: Negative. Result letter will be mailed to the patient. Note: At least 10% of breast cancer is not imaged by mammography. Dictated by: Dictated on workstation # [id number]
== END ==
LOC: RAD 09:28
PROVIDERS: ATTEND Nurse Practitioner Primary Care
DX: Z12.31 Encounter for screening mammogram for malignant neoplasm of breast (principal)
CPT/HCPCS: 77067

== ENCOUNTER → 2018-11-22 | Outpatient (CLI) | payer MEDICARE, MEDICAID | LOC: WOUNDCARE 11:11 | PROVIDERS: ATTEND Surgery | DX: L97.222 Non-pressure chronic ulcer of left calf with fat layer exposed (principal); H26.9 Unspecified cataract; D64.9 Anemia, unspecified; J45.909 Unspecified asthma, uncomplicated; G47.30 Sleep apnea, unspecified; I49.9 Cardiac arrhythmia, unspecified; I25.10 Atherosclerotic heart disease of native coronary artery without angina pectoris; I12.0 Hypertensive chronic kidney disease with stage 5 chronic kidney disease or end stage renal disease; N18.6 End stage renal disease; M19.91 Primary osteoarthritis, unspecified site; F03.90 Unspecified dementia, unspecified severity, without behavioral disturbance, psychotic disturbance, mood disturbance, and anxiety; F41.8 Other specified anxiety disorders | CPT/HCPCS: 29581 ==

== ENCOUNTER → 2018-11-26 | Outpatient (CLI) | payer MEDICARE, MEDICAID | LOC: WOUNDCARE 13:43 | PROVIDERS: ATTEND Surgery | DX: L97.222 Non-pressure chronic ulcer of left calf with fat layer exposed (principal); I87.332 Chronic venous hypertension (idiopathic) with ulcer and inflammation of left lower extremity; G60.8 Other hereditary and idiopathic neuropathies; I96 Gangrene, not elsewhere classified | CPT/HCPCS: 11042 ==

== ENCOUNTER → 2018-12-03 | Outpatient (CLI) | payer MEDICARE, MEDICAID | LOC: WOUNDCARE 12:47 | PROVIDERS: ATTEND Surgery | DX: L97.222 Non-pressure chronic ulcer of left calf with fat layer exposed (principal); I87.332 Chronic venous hypertension (idiopathic) with ulcer and inflammation of left lower extremity; G60.8 Other hereditary and idiopathic neuropathies; I96 Gangrene, not elsewhere classified | CPT/HCPCS: 11042 ==

== ENCOUNTER → 2018-12-10 | Outpatient (CLI) | payer MEDICARE, MEDICAID | LOC: WOUNDCARE 12:40 | PROVIDERS: ATTEND Surgery | DX: I87.332 Chronic venous hypertension (idiopathic) with ulcer and inflammation of left lower extremity (principal); L97.222 Non-pressure chronic ulcer of left calf with fat layer exposed; G60.8 Other hereditary and idiopathic neuropathies; I96 Gangrene, not elsewhere classified | CPT/HCPCS: 11042 ==

== ENCOUNTER → 2018-12-18 | Outpatient (CLI) | payer MEDICARE, MEDICAID | LOC: WOUNDCARE 12:59 | PROVIDERS: ATTEND Surgery | DX: L97.222 Non-pressure chronic ulcer of left calf with fat layer exposed (principal); I87.332 Chronic venous hypertension (idiopathic) with ulcer and inflammation of left lower extremity; G60.8 Other hereditary and idiopathic neuropathies; I96 Gangrene, not elsewhere classified | CPT/HCPCS: 11042 ==

== ENCOUNTER → 2018-12-24 | Outpatient (CLI) | payer MEDICARE, MEDICAID | LOC: WOUNDCARE 12:42 | PROVIDERS: ATTEND Surgery | DX: I87.332 Chronic venous hypertension (idiopathic) with ulcer and inflammation of left lower extremity (principal); L97.222 Non-pressure chronic ulcer of left calf with fat layer exposed; I96 Gangrene, not elsewhere classified; G60.8 Other hereditary and idiopathic neuropathies | CPT/HCPCS: 11042 ==

== ENCOUNTER → 2018-12-31 | Outpatient (CLI) | payer MEDICARE, MEDICAID | LOC: WOUNDCARE 12:42 | PROVIDERS: ATTEND Surgery | DX: I96 Gangrene, not elsewhere classified (principal); I87.332 Chronic venous hypertension (idiopathic) with ulcer and inflammation of left lower extremity; L97.222 Non-pressure chronic ulcer of left calf with fat layer exposed; G60.8 Other hereditary and idiopathic neuropathies | CPT/HCPCS: 11042; 87070; 87077; 87205 ==

== ENCOUNTER 2019-01-03 11:32 | Outpatient (RCR) | payer MEDICARE, MEDICAID | END 2019-03-05 | disposition home or self-care (01) | PROVIDERS: ATTEND Orthopaedic Surgery | DX: M75.01 Adhesive capsulitis of right shoulder (principal) ==

== ENCOUNTER → 2019-01-07 | Outpatient (CLI) | payer MEDICARE, MEDICAID | LOC: WOUNDCARE 12:46 | PROVIDERS: ATTEND Surgery | DX: L97.222 Non-pressure chronic ulcer of left calf with fat layer exposed (principal); I87.332 Chronic venous hypertension (idiopathic) with ulcer and inflammation of left lower extremity; G60.8 Other hereditary and idiopathic neuropathies; I96 Gangrene, not elsewhere classified | CPT/HCPCS: 11042 ==

== ENCOUNTER → 2019-01-14 | Outpatient (CLI) | payer MEDICARE, MEDICAID | LOC: WOUNDCARE 12:43 | PROVIDERS: ATTEND Surgery | DX: I87.332 Chronic venous hypertension (idiopathic) with ulcer and inflammation of left lower extremity (principal); L97.222 Non-pressure chronic ulcer of left calf with fat layer exposed; G60.8 Other hereditary and idiopathic neuropathies | CPT/HCPCS: 99212 ==

== ENCOUNTER → 2019-01-15 | Outpatient (CLI) | payer MEDICARE, MEDICAID ==
[~2019-01-15] VITALS: Ht 154.9 cm; Wt 106.4 kg
[~2019-01-15] MED LIST changes: +IOHEXOL 240 MGI/ML 20 ML (OMNIPAQUE) VIAL IV ONE; +LIDOCAINE 1% INJ 20 ML 20 ML VIAL INJ ONE; +LIDOCAINE 1% INJ 20 ML 20 ML VIAL ONE
--- NOTE | 2019-01-15 15:23 | Diagnostic Imaging Report ---
PROCEDURE: CT left upper extremity with contrast. TECHNIQUE: Axial images were obtained through the left upper extremity after intravenous contrast and reformatted into coronal and sagittal oblique planes. Auto Exposure Controls were utilized during the CT exam to meet ALARA standards for radiation dose reduction. INDICATION: Shoulder pain. FINDINGS: There are no prior CT examinations available for comparison. The right shoulder injection prior to this study did reveal extension of the contrast from the joint space into the subacromial and subdeltoid bursa consistent with a full-thickness tear of the rotator cuff. On this examination, there is again evidence of the contrast extending from the joint space into both the subacromial and subdeltoid bursa. This appears to be related to a full-thickness tear involving the anterior insertion of the rotator cuff. The coronal images do show that the supraspinatus muscle is still attached in its midportion and posteriorly. The supraspinatus muscle is also not retracted or bunched. The axial images reveal that there is a small tear of the labrum anteriorly (page 69 of 184). There also appears to be a similar minimal tear along the posterior labrum (66 of 184). The labrum is also thinned posteriorly but intact. The biceps tendon is well visualized in the bicipital groove and seems to be intact. The subscapularis tendon also seems to be intact. There is hypertrophy of the acromioclavicular joint and this does result in narrowing of the outlet for the supraspinatus muscle. There is no acute bony abnormality appreciated. The right lung, where visualized, is clear. IMPRESSION: 1. There is a full-thickness tear of the anterior portion of the rotator cuff. The mid and posterior portions of the rotator cuff are intact and the supraspinatus muscle itself is not retracted . 2. There are minute tears involving the labrum anteriorly and posteriorly and the labrum is thinned posteriorly. 3. The biceps tendon and subscapularis tendon appear to be intact. 4. There is no acute bony abnormality noted. Dictated by: Dictated on workstation # [id number]
--- NOTE | 2019-01-15 16:50 | Diagnostic Imaging Report ---
EXAMINATION: Right shoulder injection. INDICATION: Shoulder pain. FINDINGS: The preliminary film was unremarkable. Following aseptic preparation of the skin and administration of local anesthesia, a 20-gauge needle was advanced into the glenohumeral joint using fluoroscopic guidance. Subsequently, a 10 cc mixture of Omnipaque 240 and sodium chloride was infused. The contrast immediately extended into the subacromial and subdeltoid bursa consistent with a rotator cuff full-thickness tear. The patient tolerated the procedure well and was sent to the CT suite in good condition. 74.2 seconds of fluoroscopy time was utilized. IMPRESSION: 1. There has been successful injection of the glenohumeral joint. 2. The extension of the contrast into the subacromial and subdeltoid bursa would be consistent with a full-thickness tear of the rotator cuff. 3. CT is pending for further evaluation. Dictated by: Dictated on workstation # [id number]
== END ==
LOC: RAD 13:46
PROVIDERS: ATTEND Orthopaedic Surgery
DX: M75.102 Unspecified rotator cuff tear or rupture of left shoulder, not specified as traumatic (principal); S43.402A Unspecified sprain of left shoulder joint, initial encounter
CPT/HCPCS: 23350; 73040; 73201

== ENCOUNTER 2019-01-30 13:54 | Outpatient (RCR) | payer MEDICARE, MEDICAID ==
[~2019-01-30 13:54] MED LIST changes: -IOHEXOL 240 MGI/ML 20 ML (OMNIPAQUE) VIAL IV ONE; -LIDOCAINE 1% INJ 20 ML 20 ML VIAL INJ ONE; -LIDOCAINE 1% INJ 20 ML 20 ML VIAL ONE
== END 2019-03-06 13:25 | disposition home or self-care (01) ==
LOC: CARD 13:54
PROVIDERS: ATTEND Physician Assistant
DX: I49.3 Ventricular premature depolarization (principal); I49.1 Atrial premature depolarization; I25.10 Atherosclerotic heart disease of native coronary artery without angina pectoris; I10 Essential (primary) hypertension
CPT/HCPCS: 93225; 93226; 93306

== ENCOUNTER → 2019-02-10 | Outpatient (CLI) | payer MEDICARE, MEDICAID ==
[2019-02-10 09:41] LABS: CREATININE SERUM 1.42 MG/DL (0.60-1.30)
--- NOTE | 2019-02-10 14:35 | Diagnostic Imaging Report ---
PROCEDURE: CT chest without contrast. TECHNIQUE: Multiple contiguous axial images were obtained through the chest without the use of intravenous contrast. Auto Exposure Controls were utilized during the CT exam to meet ALARA standards for radiation dose reduction. INDICATION: Follow-up lymph node. COMPARISON: 08/12/2018 FINDINGS: Evaluation of the cardiomediastinal structures demonstrates normal heart size. There is no large pericardial effusion. Again identified is a prominent pretracheal lymph node just superior to the level of the azygos vein. It measures 1.8 x 1.2 cm on today's exam. This is stable compared to 1.8 x 1.4 cm on exam dated 06/02/2017. No new suspicious mediastinal, hilar, or axillary adenopathy is identified on this noncontrast exam. Note is made of mild scattered calcified aortic atherosclerosis. Evaluation lung ramirez demonstrates no focal consolidation, large effusion, nor pneumothorax. No suspicious pulmonary nodules or masses are identified. Osseous structures show no acute abnormalities. No lytic or blastic bony lesions are seen. Included portions of the upper abdomen are unremarkable. IMPRESSION: 1. Redemonstration of prominent mediastinal lymph node as described above. This is stable compared to 06/02/2017. Additionally, previous CT PET showed no evidence of hypermetabolism. Benign process is favored. Dictated by: Dictated on workstation # [id number]
== END ==
LOC: RAD 09:13
PROVIDERS: ATTEND Nurse Practitioner Family
DX: R91.1 Solitary pulmonary nodule (principal); Z84.1 Family history of disorders of kidney and ureter
CPT/HCPCS: 36415; 71250; 82565; 84520

== ENCOUNTER → 2019-03-05 | Outpatient (CLI) | payer MEDICARE, MEDICAID | LOC: WOUNDCARE 08:02 | PROVIDERS: ATTEND Surgery | DX: I87.322 Chronic venous hypertension (idiopathic) with inflammation of left lower extremity (principal); G60.8 Other hereditary and idiopathic neuropathies; R23.8 Other skin changes | CPT/HCPCS: 99213 ==

== ENCOUNTER 2019-06-13 13:45 | Outpatient (RCR) | payer MEDICARE, MEDICAID ==
[~2019-06-13 13:45] MED LIST changes: -CETI10TA20 PO; +CETI10TA21 PO; +EZET10TA17 PO; -EZET10TA5 PO; -METO-370 PO; +METO50TA7 PO; -MONT10TA24 PO; +MONT10TA26 PO; +TRM50T PO
== END 2019-06-13 15:15 | disposition home or self-care (01) ==
PROVIDERS: ATTEND Nurse Practitioner Family
DX: R29.898 Other symptoms and signs involving the musculoskeletal system (principal); Z98.890 Other specified postprocedural states

== ENCOUNTER → 2019-07-21 | Outpatient (CLI) | payer MEDICARE, MEDICAID ==
--- NOTE | 2019-07-21 15:28 | Diagnostic Imaging Report ---
PROCEDURE: CT chest without contrast. TECHNIQUE: Multiple contiguous axial images were obtained through the chest without the use of intravenous contrast. Auto Exposure Controls were utilized during the CT exam to meet ALARA standards for radiation dose reduction. INDICATION: Chest pain, productive cough. FINDINGS: The lungs are clear. There are no effusions or pneumothoraces. There is no hilar adenopathy. There is a low-density right paratracheal lymph node that measures 18 x 12 mm. This is unchanged from a CT done on 02/02/2019. IMPRESSION: Stable CT chest. No acute abnormality is seen. Dictated by: Dictated on workstation # [id number]
== END ==
LOC: RAD 14:31
PROVIDERS: ATTEND Nurse Practitioner Primary Care
DX: R59.1 Generalized enlarged lymph nodes (principal)
CPT/HCPCS: 71250

== ENCOUNTER 2019-08-01 08:12 | Inpatient (IN) | payer MEDICARE, MEDICAID ==
[~2019-08-01] VITALS: Ht 154.9 cm; Wt 113.4 kg
[2019-08-01] MEDS ORDERED: NS IV 1000 ML 1,000 ML IV SCH (08:25)
[2019-08-01] MEDS ORDERED: NS IV ONE (08:30)
--- OUTSIDE RECORDS SUMMARY | 2019-08-01 09:07 | XMS REPORT | Clinical Summary ---
Author Author [facility] Organization [facility] Address Unknown Phone Unavailable Care Team Providers Care Veterinary Practice Manager Name Role Phone PCP Unavailable Allergies Not on File Medications Not on file Active Problems Not on file Social History Date Tobacco Use Types Packs/Day Years Used Never Assessed Sex Assigned at Date Recorded Not on file Industry Job Start Date Occupation Not on file Not on file Not on file Travel End Travel History Travel Start No recent travel history available. 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
--- OUTSIDE RECORDS SUMMARY | 2019-08-01 09:07 | XMS REPORT | Encounter Summary ---
Author Author [facility] Address Unknown Phone Unavailable Care Team Providers Care Tear Down Man Name Role Phone PCP Unavailable Encounter Details Care Team Description Date Type Department Bro Elizabeth MD [address] [facility] [address] [place] [address] [phone] MENIERE DIS VESTIBULAR 11/03/2003 [facility] - Encounter 11/04/2003 Social History Date Tobacco Use Types Packs/Day Years Used Never Assessed Sex Assigned at Date Recorded Not on file Industry Job Start Date Occupation Not on file Not on file Not on file Travel End Travel History Travel Start No recent travel history available. documented as of this encounter H&P Notes * Bro Elizabeth MD - 06/14/2013 5:22 PM [facility] Report Name: BRANDON EM Attending Physician: BRO ELIZABETH MD Date of : 1960 DATE OF SURGERY: November 03, 2003 CHIEF COMPLAINT: Dizziness. HISTORY OF PRESENT ILLNESS: Patient is 42-year-old with episodic dizziness and hearing loss in the left ear. 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 She did not respond to medical management. She is undergoing a left endolymphatic mastoid shunt. PAST MEDICAL HISTORY: Patient has had migraine headaches, hypertension and gastroesophageal reflux disease. PAST SURGERIES: Include appendectomy, cholecystectomy and . MEDICATIONS: Current medicines are Inderal LA 160 mg a day, Elavil 20 mg a day, Synthroid, Protonix 40 mg a day, Lasix 80 mg a day, K-Tab 10 mg a day, Phenergan p.r.n., meclizine 25 mg t.i.d. p.r.n., Valium 2 mg b.i.d. and Lortab 7.5 mg p.r.n. pain. FAMILY HISTORY: Positive for hearing loss, otherwise noncontributory. SOCIAL HISTORY: She is and lives in [place], [place]. REVIEW OF SYSTEMS: Positive for GI symptoms of reflux and past ulcer history. PHYSICAL EXAMINATION: Physical exam reveals well-developed, well-nourished 42-year-old in no acute distress. HEENT eyes normal. Ears tympanic membranes intact with some mild tympanosclerosis. NOSE, THROAT, NECK normal. LUNGS clear. HEART normal. EXTREMITIES normal. Audiogram shows a slight right low frequency sensorineural hearing loss and mild high frequency hearing loss, otherwise speech receptionist secretary threshold is close to normal 25 dB. Left ear has a large conductive hearing loss. The speech receptionist secretary threshold of 70 dB. ASSESSMENT: 1. 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 2. Left conductive hearing loss. RECOMMENDATION: Left endolymphatic mastoid shunt. Risks of the procedure and alternatives have been discussed and informed written consent obtained. Bro Elizabeth M.D. Dictated By: Cc: Adarsh Benson M.D. [address] [place] [address] Bro Elizabeth M.D. [address] [address], [facility] [address] [address] documented in this encounter Miscellaneous Notes * Operative Note - Bro Elizabeth MD - 06/14/2013 5:21 PM [id number]/Unit #: [id number] Attending Physician: BRO ELIZABETH MD Date of : 1960 DATE OF OPERATION: 11/03/03 PREOPERATIVE DIAGNOSIS: Left Minihre's disease. POSTOPERATIVE DIAGNOSIS: Left Minihre's disease. OPERATION PERFORMED: 1. Left endolymphatic mastoid shunt. 2. Microdissection operating microscope. 3. Intraoperative facial monitoring - one hour. SURGEON: Bro Elizabeth M.D. INDICATIONS: The patient is a 42-year-old with recurrent and symptoms diagnostic for Minihre's disease involving the left ear. She is undergoing endolymphatic mastoid shunt due to failure of medical management. FINDINGS: At the time of surgery, I found a very contracted, poorly aerated mastoid with serous mastoid fluid. DESCRIPTION OF PROCEDURE: The patient was identified and taken to the operating room. General anesthetic was administered with intubation. First, as a separate part to the procedure, the facial nerve integrity monitor was applied to the left face for continuous intraoperative facial nerve monitoring. I inserted needle electrodes in the orbicularis bunny and orbicularis oculi muscles, ground electrodes in the forehead, measured electrode resistance and impedance which were found to be acceptable and set the machine for threshold stimulus intensity parameters. I monitored the patient over the entire approximately one hour. The left ear was shaved, prepped and draped and preinjected with 1% Xylocaine with adrenalin. I began the surgery by making a C-shaped, postauricular incision with the skin, subcutaneous tissue and elevated the mastoid cortex clean. I then did a complete mastoidectomy on a very sclerotic mastoid with few air cells. There was some serous fluid in the mastoid and what appeared to be a blocked antrum. So, I removed this tissue, drilling over the posterior fossa, played between the posterior semicircular canal and sigmoid sinus. I uncovered dura and found a thickened area that was compatible with the endolymphatic sac. I made a small incision, taking the blade probe that was and then inserted an Balaji endolymphatic shunt tube that I had primed with heparin. It fit securely and was not loose, so I just laid it to wick out fluid into the mastoid cavity and then closed the postauricular wound using 3-0 and 4-0 Vicryl in subcutaneous and subcuticular layers. Steri-Strips were applied. A mastoid pressure dressing was put on. The patient was awakened and taken to the recovery room in good condition. Bro Elizabeth M.D. Dictated By: cc: Adarsh Benson M.D., [place], [place] N DRILLER documented in this encounter Plan of Treatment Not on filedocumented as of this encounter Visit Diagnoses Diagnosis Active Mnire's disease, vestibular documented in this encounter
[2019-08-01 09:20] VITALS: BP 124/64
--- NOTE | 2019-08-01 09:20 | NUR ---
BRANDON MARQUEZ admitted to room 417-1, with an admitting diagnosis of facial celluliis, on 08/01/19 from via , accompanied by staff.BRANDON MARQUEZ introduced to surroundings, call light, bed controls, phone, TV, temperature control, lights, meal times, smoking policy, visitor policy, side rail policy, bathrooms and showers. Patient Rights given to patient in the handbook. BRANDON MARQUEZ verbalizes understanding that [facility] is not responsible for the loss or damage to any personal effects or valuables that are kept in the patients posession during their hospitalization. BRANDON MARQUEZ verbalizes understanding of Interdisciplinary Patient Education. Patient and/or family were informed about the Rapid Response Team and its purpose.
--- OUTSIDE RECORDS SUMMARY | 2019-08-01 09:54 | XMS REPORT ---
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 Name Role Phone Migration, Doctor Unavailable Unavailable PROBLEMS Type Condition ICD9-CM Code OSN88-OX Code Onset Dates Condition S tatus SNOMED Code Problem Hypothyroid E03.9 Active 21097018 Problem Generalized anxiety disorder F41.1 A ctive 78062099 Problem Asthma J45.909 Active 557803544 Problem Insomnia G47.00 Active 698049542 Problem Mixed stress and urge urinary incontinence N39.46 Active 918515210 Problem Palpitations R00.2 Active 5273660 2 Problem Essential (primary) hypertension I10 Active 02975160 Problem Fibromyalgia M79.7 Active 5624233 05 Problem Body mass index (BMI) of 40.0-44.9 in adult Z68.41 Active 555276711 Problem Seasonal allergic rhinitis due to pollen J30.1 Active 43913321 Problem Restless leg syndrome G25.81 Active 63266319 Problem Hypercholesterolemia E78.00 Active 55522727 Problem Stage 3 chronic kidney disease N18.3 Active 011468561 Problem Hypertensive heart and chron ic kidney disease with heart failure and stage 1 through stage 4 chronic kidney disease, or unspecified chronic kidney disease I13.0 Active 56198372 Problem Primary osteoarthritis of left knee M17.12 Active 423012287 Problem Low back pain M54.5 Active 393471 009 Problem Chronic pain syndrome G89.4 Active 857772610 Problem Perimenopausal vasomotor symptoms N95.1 Active 707459813 Problem Major depressive disorder, recurrent, moderate F33 .1 Active 116373472 Problem 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 Active [id number] ALLERGIES No Information ENCOUNTERS Encounter Location Date Diagnosis [facility] [address] [facility] [id number] [address] [place] [address] August, [facility] [address] [facility] [id number] [address] [place] [address] Jul, [facility] [address] [place] [id number] [address] [place] [address] Jul, [facility] [address] [address] Jul, [facility] [address] [place] [id number] [place] [address] Jun, [facility] [address] [address] Jun, Fibromyalgia M79.7 ; Stage 3 chronic kidney disease N18.3 ; Essential (primary) hypertension I10 ; Hypertensive heart and chronic kidney disease with heart failure and stage 1 through stage 4 chronic kidney disease, or unspecified chronic kidney disease I13.0 and Lymphadenopathy R59.1 [place] [address] [address] Jun, Chronic pain syndrome G89.4 [place] [address] [address] May, Cystitis N30.90 [place] [address] [address] May, [place] [address] [address] May, [facility] [address] [address] May, Chronic pain syndrome G89.4 [facility] [address] [place] [id number] [place] [address] May, Generalized anxiety disorder F41.1 and Major depressive disorder, recurrent episode with anxious distress F33.9 [place] [address] [place] [id number] [address] [place] [address] Apr, Major depressive disorder, r ecurrent, moderate F33.1 ; Generalized anxiety disorder F41.1 and Dysthymic disorder F34.1 [place] [address] [place] [id number] [place] [address] Apr, Chronic pain syndrome G89.4 [facility] [address] [address] Apr, Acute pain of right knee M25 .561 [facility] [address] [address] Apr, [facility] [address] [address] Mar, Major depressive disorder, r ecurrent, moderate F33.1 ; Generalized anxiety disorder F41.1 and Dysthymic disorder F34.1 [facility] [address] [address] Mar, Fluid collection of middle e ar H65.90 and Dizziness R42 [place] [address] [address] Mar, [place] [address] [address] Mar, [place] [address] [address] Mar, Essential (primary) hyperten maria eugenia I10 ; Stage 3 chronic kidney disease N18.3 ; Hypercholesterolemia E78.00 ; Asthma J45.909 ; Recurrent UTI N39.0 ; Status post shoulder surgery Z98.890 and Encounter for immunization Z23 [facility] [address] [place] [id number] [place] [address] Mar, Chronic pain syndrome G89.4 [place] [address] [address] Feb, [place] [address] [address] Feb, [place] [address] [address] Feb, Oral thrush B37.0 and Sore t hroat J02.9 [facility] [address] [facility] [id number] [address] [place] [address] Feb, Chronic pain syndrome G89.4 [facility] [address] [facility] [id number] [address] [place] [address] Jan, [facility] [address] [facility] [id number] [address] [place] [address] Jan, Chronic pain syndrome G89.4 [facility] [address] [facility] [id number] [address] [place] [address] Jan, Hypercholesterolemia E78.00 [place] [address] [facility] [id number] [address] [place] [address] Jan, [place] [address] [facility] [id number] [address] [place] [address] Dec, Chronic kidney disease, 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 [place] [address] [facility] [id number] [address] [place] [address] Dec, Major depressive disorder, r ecurrent, moderate F33.1 ; Generalized anxiety disorder F41.1 and Dysthymic disorder F34.1 [place] [address] [place] [id number] [place] [address] Dec, Generalized anxiety disorder F41.1 and Major depressive disorder, recurrent episode with anxious distress F33.9 [place] [address] [facility] [id number] [address] [place] [address] Dec, [place] [address] [facility] [id number] [address] [place] [address] Dec, [place] [address] [place] [id number] [address] [place] [address] Dec, Encounter for immunization Z 23 [place] [address] [facility] [id number] [address] [place] [address] Dec, Diarrhea, unspecified type R 19.7 and Hemorrhoids, unspecified hemorrhoid type K64.9 [place] [address] [place] [id number] [place] [address] 12 Dec, 2018 Encounter for Medicare annua l wellness exam Z00.00 ; Chronic kidney disease, stage 4 (severe) N18.4 ; Encounter for immunization Z23 ; Major depressive disorder, recurrent, moderate F33.1 ; Atherosclerosis of [place] coronary artery of [place] heart with angina pectoris I25.119 ; Asthma J45.909 ; Hypothyroid E03.9 and Fibromyalgia M79.7 [place] [address] [facility] [id number] [address] [place] [address] 11 Dec, 2018 Chronic pain syndrome G89.4 [place] [address] [place] [id number] [place] [address] Nov, Major depressive disorder, r ecurrent, moderate F33.1 ; Generalized anxiety disorder F41.1 and Dysthymic disorder F34.1 [place] [id number] [place] [address] Nov, [place] [address] [place] [id number] [place] [address] Nov, Chronic pain syndrome G89.4 [place] [address] [place] [id number] [place] [address] 05 Nov, 2018 Restless leg syndrome G25.81 [place] [address] [place] [id number] [place] [address] Nov, Pain in right shoulder M25.5 11 ; Restless leg syndrome G25.81 ; Other chronic pain G89.29 ; Screening for breast cancer Z12.39 ; Insomnia G47.00 and Morbid obesity E66.01 [place] [address] [place] [id number] [place] [address] Nov, [place] [address] [place] [id number] [place] [address] Oct, Major depressive disorder, r ecurrent, moderate F33.1 ; Generalized anxiety disorder F41.1 and Dysthymic disorder F34.1 [facility] [address] [id number] [address] [place] [address] Oct, [facility] [address] [id number] [address] [place] [address] Oct, Cellulitis of left lower ext remity L03.116 and Morbid obesity E66.01 [facility] [address] [id number] [address] [place] [phone] Oct, [facility] [address] [id number] [address] [place] [address] Oct, [facility] [address] [id number] [address] [place] [address] Oct, Generalized anxiety disorder F41.1 and Major depressive disorder, recurrent episode with anxious distress F33.9 [facility] [address] [id number] [address] [place] [address] Oct, [facility] [address] [id number] [address] [place] [address] Oct, Chronic pain syndrome G89.4 [facility] [address] [id number] [address] [place] [address] Oct, Chronic pain syndrome G89.4 [facility] [address] [id number] [address] [place] [address] Oct, UTI symptoms R39.9 ; Acute c ystitis without hematuria N30.00 and Morbid obesity E66.01 [facility] [address] [id number] [address] [place] [address] Oct, [facility] [address] [id number] [address] [place] [address] Oct, Chronic pain syndrome G89.4 [facility] [address] [id number] [address] [place] [address] Sep, [facility] [address] [id number] [address] [place] [address] 20 Sep, 2018 Generalized anxiety disorder F41.1 and Major depressive disorder, recurrent episode with anxious distress F33.9 [facility] [address] [facility] [id number] [address] [place] [phone] 17 Sep, 2018 Chronic kidney disease, 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 [facility] [address] [facility] [id number] [address] [place] [address] Sep, Fibromyalgia M79.7 and Chron ic pain syndrome G89.4 [facility] [address] [facility] [id number] [address] [place] [address] Sep, [id number] [place] [address] Sep, Chronic pain syndrome G89.4 [facility] [address] [facility] [id number] [address] [place] [address] Sep, [place] [address] [facility] [id number] [address] [place] [address] Sep, Chronic pain syndrome G89.4 ; Fibromyalgia M79.7 and Morbid obesity E66.01 [place] [address] [facility] [id number] [address] [place] [address] August, Generalized anxiety disorder F41.1 and Major depressive disorder, recurrent episode with anxious distress F33.9 [facility] [address] [facility] [id number] [address] [place] [address] August, Fibromyalgia M79.7 [place] [address] [facility] [id number] [address] [place] [address] August, Restless leg syndrome G25.81 ; Vitamin D deficiency E55.9 ; Urinary tract infection without hematuria, site unspecified N39.0 ; Pain in right shoulder M25.511 ; Other chronic pain G89.29 ; Biceps tendinitis on right M75.21 and Morbid obesity E66.01 [facility] [address] [facility] [id number] [address] [place] [address] Jul, Urinary tract infection with out hematuria, site unspecified N39.0 and Morbid obesity E66.01 [place] [address] [facility] [id number] [address] [place] [address] Jul, [facility] [address] [facility] [id number] [address] [place] [address] Jul, [place] [address] [facility] [id number] [address] [place] [address] Jul, Fibromyalgia M79.7 [place] [address] [facility] [id number] [address] [place] [address] Jul, Acute pain of right shoulder M25.511 [place] [address] [facility] [id number] [address] [place] [address] Jul, Acute pain of right shoulder M25.511 and Morbid obesity E66.01 [place] [address] [place] [id number] [address] [place] [address] Jun, [place] [address] [facility] [id number] [address] [place] [address] Jun, Generalized anxiety disorder F41.1 and Major depressive disorder, recurrent episode with anxious distress F33.9 [facility] [address] [facility] [id number] [address] [place] [address] Jun, [place] [address] [facility] [id number] [address] [place] [address] Jun, Fibromyalgia M79.7 [facility] [address] [facility] [id number] [address] [place] [address] Jun, Acute pain of right shoulder M25.511 ; Acute pain of right hip M25.551 and Morbid obesity E66.01 [facility] [address] [facility] [id number] [address] [place] [address] May, Burning with urination R30.0 ; Vaginal discharge N89.8 ; Chronic kidney disease, stage 4 (severe) N18.4 ; Body mass index (BMI) of 40.0-44.9 in adult Z68.41 and Morbid obesity E66.01 [facility] [address] [id number] [address] [place] [phone] 07 May, 2018 Fibromyalgia M79.7 [facility] [address] [id number] [address] [place] [id number] 06 May, 2018 Generalized anxiety disorder F41.1 and Major depressive disorder, recurrent episode with anxious distress F33.9 [facility] [address] [id number] [address] [place] [phone] 24 Apr, 2018 [facility] [address] [id number] [address] [place] [id number] 08 Apr, 2018 Fibromyalgia M79.7 [facility] [address] [id number] [address] [place] [phone] 14 Mar, 2018 Acute UTI N39.0 and Dysuria R30.0 [facility] [address] [id number] [address] [place] [address] Mar, Fibromyalgia M79.7 [facility] [address] [id number] [address] [place] [phone] Feb, [facility] [address] [facility] [id number] [address] [place] [address] Feb, [facility] [address] [id number] [address] [place] [phone] Feb, [facility] [address] [id number] [address] [place] [address] Feb, Fibromyalgia M79.7 [facility] [address] [id number] [address] [place] [phone] 08 Feb, 2018 Complicated UTI (urinary tra ct infection) N39.0 [facility] [address] [id number] [address] [place] [id number] 07 Feb, 2018 [facility] [address] [facility] [id number] [address] [place] [phone] Jan, Generalized anxiety disorder F41.1 and Major depressive disorder, recurrent episode with anxious distress F33.9 [facility] [address] [facility] [id number] [address] [place] [address] Jan, Acute conjunctivitis of left eye, unspecified acute conjunctivitis type H10.32 [facility] [address] [facility] [id number] [address] [place] [address] Jan, [facility] [address] [facility] [id number] [address] [place] [address] Jan, Acute non-recurrent maxillar y sinusitis J01.00 ; Dysuria R30.0 ; Perimenopausal vasomotor symptoms N95.1 and Fibromyalgia M79.7 [facility] [address] [facility] [id number] [address] [place] [address] Dec, Vitamin D deficiency E55.9 [facility] [address] [facility] [id number] [address] [place] [address] Dec, Vitamin D deficiency E55.9 [facility] [address] [facility] [id number] [address] [place] [address] 24 Dec, 2017 Vitamin D deficiency E55.9 [facility] [address] [facility] [id number] [address] [place] [address] Dec, [facility] [address] [facility] [id number] [address] [place] [address] Dec, Fibromyalgia M79.7 [facility] [address] [facility] [id number] [address] [place] [id number] Nov, [facility] [address] [id number] [address] [place] [phone] Nov, [facility] [address] [facility] [id number] [address] [place] [address] Nov, [facility] [address] [facility] [id number] [address] [place] [address] Nov, Fibromyalgia M79.7 ; Vision changes H53.9 ; Chest wall pain R07.89 and Chronic pain syndrome G89.4 [facility] [address] [id number] [address] [place] [phone] Nov, [facility] [address] [id number] [address] [place] [address] Nov, Rash of hands R21 [facility] [address] [id number] [address] [place] [phone] Nov, Generalized anxiety disorder F41.1 and Major depressive disorder, recurrent episode with anxious distress F33.9 [facility] [address] [id number] [address] [place] [phone] Nov, Fibromyalgia M79.7 [place] [address] [id number] [address] [place] [phone] Nov, Complicated UTI (urinary tra ct infection) N39.0 [facility] [address] [id number] [address] [place] [phone] Oct, [facility] [address] [id number] [address] [place] [address] Oct, Generalized anxiety disorder F41.1 and Major depressive disorder, recurrent episode with anxious distress F33.9 [facility] [address] [id number] [address] [place] [address] Oct, [place] [address] [id number] [address] [place] [phone] Oct, Fibromyalgia M79.7 [facility] [address] [id number] [address] [place] [phone] Sep, Restless leg syndrome G25.81 and Restless leg G25.81 [place] [address] [id number] [address] [place] [address] Sep, [facility] [address] [id number] [address] [place] [address] Sep, Seasonal allergic rhinitis d ue to pollen J30.1 ; Screening for breast cancer Z12.31 ; Chest pain at rest R07.9 ; Restless leg syndrome G25.81 ; Essential (primary) hypertension I10 and Depressed F32.9 [facility] [address] [facility] [id number] [address] [place] [address] August, Fibromyalgia M79.7 [facility] [address] [facility] [id number] [address] [place] [address] August, [facility] [address] [facility] [id number] [address] [place] [address] August, [place] [address] [facility] [id number] [address] [place] [address] August, Abnormal chest CT R93.8 [place] [address] [facility] [id number] [address] [place] [address] August, Generalized anxiety disorder F41.1 and Major depressive disorder, recurrent episode with anxious distress F33.9 [place] [address] [facility] [id number] [address] [place] [address] August, Abnormal chest CT R93.8 [place] [address] [facility] [id number] [address] [place] [address] Jul, [place] [address] [facility] [id number] [address] [place] [address] Jul, Chronic kidney disease, 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 [place] [address] [facility] [id number] [address] [place] [address] Jul, [place] [address] [facility] [id number] [address] [place] [address] Jul, Restless leg G25.81 ; Mixed stress and urge urinary incontinence N39.46 and Fibromyalgia M79.7 [facility] [address] [facility] [id number] [address] [place] [address] Jul, Chronic kidney disease, 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 [place] [address] [facility] [id number] [address] [place] [address] Jun, Orthostatic hypotension I95. 1 ; Chronic kidney disease, stage 4 (severe) N18.4 ; Chest wall discomfort R07.89 and Body mass index (BMI) of 40.0- 44.9 in adult Z68.41 [facility] [address] [facility] [id number] [address] [place] [phone] Jun, [facility] [address] [facility] [id number] [address] [place] [address] Jun, Orthostatic hypotension I95. 1 [facility] [address] [facility] [id number] [address] [place] [address] Jun, [facility] [address] [facility] [id number] [address] [place] [address] Jun, Orthostatic hypotension I95. 1 ; Dysuria R30.0 and Acute cystitis without hematuria N30.00 [facility] [address] [place] [id number] [address] [place] [address] Jun, [facility] [address] [place] [id number] [address] [place] [address] Jun, Chronic kidney disease, 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 [place] [address] [place] [id number] [address] [place] [address] Jun, Fibromyalgia M79.7 [facility] [address] [place] [id number] [address] [place] [address] Jun, [facility] [address] [place] [id number] [address] [place] [phone] Jun, [place] [address] [place] [id number] [place] [phone] May, Abnormal chest CT R93.8 and Stage 3 chronic kidney disease N18.3 [facility] [address] [place] [id number] [address] [place] [phone] May, Chronic kidney disease, 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 [facility] [address] [id number] [address] [place] [phone] May, Chronic kidney disease, 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 [facility] [address] [id number] [address] [place] [phone] May, Abnormal chest [address] R93.8 [facility] [address] [id number] [address] [place] [phone] May, [facility] [address] [id number] [address] [place] [phone] May, [facility] [address] [facility] [id number] [address] [place] [phone] May, Generalized anxiety disorder F41.1 and Major depressive disorder, recurrent episode with anxious distress F33.9 [facility] [address] [facility] [id number] [address] [place] [phone] May, Mood disorder F39 [facility] [address] [facility] [id number] [address] [place] [address] Apr, [facility] [address] [facility] [id number] [address] [place] [id number] Apr, Infected skin lesion L08.9 a nd Muscle strain of right shoulder region, initial encounter S46.911A [facility] [address] [facility] [id number] [address] [place] [phone] Apr, Generalized anxiety disorder F41.1 and Major depressive disorder, recurrent episode with anxious distress F33.9 [facility] [address] [facility] [id number] [address] [place] [address] Apr, [facility] [address] [facility] [id number] [address] [place] [address] Apr, Recent urinary tract infecti on Z87.440 and Hypothyroid E03.9 [facility] [address] [facility] [id number] [address] [place] [address] Apr, Generalized anxiety disorder F41.1 and Major depressive disorder, recurrent episode with anxious distress F33.9 [facility] [address] [facility] [id number] [address] [place] [address] Apr, Recent urinary tract infecti on Z87.440 [facility] [address] [id number] [address] [place] [phone] Mar, [facility] [address] [id number] [address] [place] [phone] Mar, Dysuria R30.0 ; Acute cystit is without hematuria N30.00 and BMI 40.0-44.9, adult Z68.41 [place] [address] [facility] [id number] [address] [place] [address] Mar, [place] [address] [facility] [id number] [address] [place] [address] Mar, [place] [address] [facility] [id number] [address] [place] [phone] Mar, Generalized anxiety disorder F41.1 and Major depressive disorder, recurrent episode with anxious distress F33.9 [place] [id number] [facility] [id number] [address] [place] [address] Feb, Conjunctivitis, bacterial H1 0.9 [place] [address] [facility] [id number] [address] [place] [phone] Feb, [facility] [address] [id number] [address] [place] [phone] Feb, Conjunctivitis, bacterial H1 0.9 [place] [address] [facility] [id number] [address] [place] [phone] Feb, [facility] [place] [address] [facility] [id number] [address] [place] [phone] Feb, Dysuria R30.0 ; Acute cystit is N30.00 and BMI 40.0-44.9, adult Z68.41 [place] [address] [place] [id number] [address] [place] [id number] Feb, [facility] [address] [place] [id number] [place] [address] Feb, Generalized anxiety disorder F41.1 and Major depressive disorder, recurrent episode with anxious distress F33.9 [facility] [address] [place] [id number] [address] [place] [phone] Feb, Mood disorder F39 and BMI 40 .0-44.9, adult Z68.41 [facility] [address] [place] [id number] [address] [place] [phone] Jan, [place] [address] [address] Jan, [place] [address] [place] [id number] [place] [address] Jan, Hypothyroid E03.9 [place] [address] [address] Jan, [facility] [address] [address] Jan, Chronic kidney disease, unsp ecified N18.9 ; Hypokalemia E87.6 ; Essential (primary) hypertension I10 ; Fibromyalgia M79.7 ; Coronary artery disease involving chehalis coronary artery of chehalis heart, angina presence unspecified I25.10 ; Hypothyroid E03.9 and Encounter for immunization Z23 [facility] [address] [place] [id number] [address] [place] [phone] Jan, Hypothyroid E03.9 [facility] [address] [place] [id number] [address] [place] [phone] Jan, [place] [address] [place] [id number] [place] [address] Dec, Vitamin D deficiency E55.9 [facility] [address] [place] [id number] [address] [place] [phone] 28 Sep, 2017 Primary osteoarthritis of le ft knee M17.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 [facility] [address] [id number] [address] [place] [address] 19 Dec, 2016 Fibromyalgia M79.7 [facility] [address] [id number] [address] [place] [phone] 18 Dec, 2016 Mood disorder F39 [facility] [address] [id number] [address] [place] [phone] 13 Dec, 2016 [facility] [address] [id number] [address] [place] [id number] 13 Dec, 2016 Generalized anxiety disorder F41.1 and Major depressive disorder, recurrent episode with anxious distress F33.9 [facility] [address] [id number] [address] [place] [phone] 11 Dec, 2016 [facility] [address] [id number] [address] [place] [phone] 08 Dec, 2016 Streptococcal meningitis G00 .2 [facility] [address] [id number] [address] [place] [phone] 07 Dec, 2016 Streptococcal meningitis G00 .2 [facility] [address] [id number] [address] [place] [phone] 07 Dec, 2016 [facility] [address] [id number] [address] [place] [phone] 06 Dec, 2016 Streptococcal meningitis G00 .2 [facility] [address] [id number] [address] [place] [phone] 06 Dec, 2016 [facility] [address] [id number] [address] [place] [phone] 06 Dec, 2016 Major depressive disorder, r ecurrent episode with anxious distress F33.9 [facility] [address] [id number] [address] [place] [phone] Nov, Fever, unspecified fever cau se R50.9 [facility] [address] [id number] [address] [place] [phone] Nov, [facility] [address] [id number] [address] [place] [phone] Nov, Hypothyroid E03.9 [facility] [address] [id number] [address] [place] [phone] Nov, Generalized anxiety disorder F41.1 and Major depressive disorder, recurrent episode with anxious distress F33.9 [facility] [address] [id number] [address] [place] [phone] Nov, [facility] [address] [id number] [address] [place] [id number] Oct, Dental examination Z01.20 [facility] [address] [facility] [id number] [address] [place] [phone] Oct, Generalized anxiety disorder F41.1 and Major depressive disorder, recurrent episode with anxious distress F33.9 [facility] [address] [facility] [id number] [address] [place] [phone] Oct, Chronic kidney disease, 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 [facility] [address] [facility] [id number] [address] [place] [phone] Oct, [facility] [address] [facility] [id number] [address] [place] [address] Oct, Fibromyalgia M79.7 [facility] [address] [facility] [id number] [address] [place] [address] Oct, [facility] [address] [facility] [id number] [address] [place] [phone] Oct, Generalized anxiety disorder F41.1 ; Major depressive disorder, recurrent episode with anxious distress F33.9 and Bipolar disorder, current episode manic without psychotic features F31.10 [facility] [address] [id number] [address] [place] [phone] Sep, [facility] [address] [facility] [id number] [address] [place] [phone] Sep, [place] [address] [facility] [id number] [address] [place] [address] Sep, Vitamin D deficiency E55.9 [place] [address] [facility] [id number] [address] [place] [phone] 14 Sep, 2016 Vitamin D deficiency E55.9 [place] [address] [facility] [id number] [address] [place] [address] Sep, [place] [address] [place] [id number] [address] [place] [phone] Sep, Chronic kidney disease, 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 ; Hypothyroid E03.9 ; Restless leg G25.81 ; Fibromyalgia M79.7 ; Essential (primary) hypertension I10 ; Vitamin D deficiency E55.9 ; Dyspepsia R10.13 ; Anemia in chronic kidney disease D63.1 ; Chronic kidney disease, unspecified N18.9 ; Coronary artery disease involving chehalis coronary artery of chehalis heart, angina presence unspecified I25.10 ; Screening breast examination Z12.39 and Low back pain M54.5 [place] [address] [facility] [id number] [address] [place] [phone] August, Generalized anxiety disorder F41.1 and Major depressive disorder, recurrent episode with anxious distress F33.9 [place] [address] [place] [id number] [address] [place] [address] August, Generalized anxiety disorder F41.1 and Major depressive disorder, recurrent episode with anxious distress F33.9 [place] [address] [facility] [id number] [address] [place] [address] August, Fibromyalgia M79.7 [place] [address] [place] [id number] [address] [place] [phone] Jul, Generalized anxiety disorder F41.1 and Major depressive disorder, recurrent episode with anxious distress F33.9 [place] [address] [place] [id number] [address] [place] [phone] Jul, Fibromyalgia M79.7 [place] [address] [place] [id number] [address] [place] [address] Jul, Generalized anxiety disorder F41.1 [place] [address] [address] May, [place] [address] [address] May, Hypothyroid E03.9 [place] [address] [address] May, Chronic kidney disease, 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 ; Hypothyroid E03.9 ; Restless leg G25.81 ; Fibromyalgia M79.7 ; Essential (primary) hypertension I10 ; Vitamin D deficiency E55.9 ; Dyspepsia R10.13 ; Acute non-recurrent maxillary sinusitis J01.00 ; Anemia in chronic kidney disease D63.1 ; Chronic kidney disease, unspecified N18.9 and Coronary artery disease involving chehalis coronary artery of chehalis heart, angina presence unspecified I25.10 [place] [address] [address] May, Vitamin D deficiency, unspec ified E55.9 [place] [address] [address] May, Generalized anxiety disorder F41.1 and Major depressive disorder, recurrent episode with anxious distress F33.9 [place] [address] [address] Apr, Pain in right knee M25.561 a nd Pain in left knee M25.562 [place] [address] [address] Apr, [place] [address] [address] Apr, [place] [address] [address] Apr, [place] [id number] [place] [address] Mar, Generalized anxiety disorder F41.1 and Major depressive disorder, recurrent episode with anxious distress F33.9 [place] [address] [place] [id number] [address] [place] [address] Mar, Generalized anxiety disorder F41.1 and Major depressive disorder, recurrent episode with anxious distress F33.9 [place] [address] [place] [address] Mar, [place] [address] [address] Mar, [place] [address] [address] Mar, [place] [address] [address] Mar, Asthma J45.909 and Fibromyal elvira M79.7 [place] [address] [address] Mar, Chronic kidney disease, 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 ; Vitamin D deficiency E55.9 and Essential (primary) hypertension I10 [place] [address] [address] Feb, [place] [address] [address] Feb, Dysuria R30.0 ; Mixed stress and urge urinary incontinence N39.46 ; Fibromyalgia M79.7 and Chronic kidney disease, stage IV (severe) N18.4 [place] [address] [address] Feb, Chronic kidney disease, 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 [place] [address] [address] Feb, Chronic kidney disease, 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 [facility] [address] [address] Feb, [facility] [address] [address] Feb, Vitamin D deficiency, unspec ified E55.9 [facility] [address] [address] Jan, [facility] [address] [address] Jan, [facility] [address] [address] Dec, [facility] [address] [address] Dec, Chronic kidney disease, 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 [facility] [address] [address] Dec, Dysthymic disorder F34.1 and Generalized anxiety disorder F41.1 [facility] [address] [address] Dec, [facility] [address] [address] Dec, [facility] [address] [address] Dec, Dysthymic disorder F34.1 and Generalized anxiety disorder F41.1 [facility] [address] [address] Dec, Dysuria R30.0 ; Chronic kidn ey disease, stage 4 (severe) N18.4 ; Hypertension I10 ; Dyspepsia R10.13 ; Yeast dermatitis B37.2 ; Palpitations R00.2 ; Hypothyroid E03.9 ; Functional diarrhea K59.1 and Other seasonal allergic rhinitis J30.2 [facility] [address] [address] Dec, [facility] [address] [address] Nov, Dysuria R30.0 and Stress inc ontinence N39.3 [facility] [address] [address] Nov, [facility] [address] [address] Nov, [place] [address] [address] Nov, Osteoarthritis of knees, jose ateral M17.0 [place] [address] [address] Nov, Dysthymic disorder F34.1 and Generalized anxiety disorder F41.1 [place] [address] [address] Nov, [place] [address] [address] Nov, [place] [address] [address] Nov, Urgency of urination R39.15 [place] [address] [address] Nov, [place] [address] [address] Nov, Chronic kidney disease, 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 [place] [address] [address] Oct, Hypertension I10 ; Coronary artery disease involving chehalis coronary artery of chehalis heart, angina presence unspecified I25.10 ; Palpitations R00.2 ; Hypothyroid E03.9 ; Right foot pain M79.671 ; Functional diarrhea K59.1 and Other seasonal allergic rhinitis J30.2 [facility] [address] [facility] [id number] [address] [place] [address] Oct, Dysthymic disorder F34.1 and Generalized anxiety disorder F41.1 [facility] [address] [facility] [id number] [address] [place] [address] Sep, [facility] [address] [facility] [id number] [address] [place] [address] Sep, [facility] [address] [facility] [id number] [address] [place] [address] Sep, [place] [address] [facility] [id number] [address] [place] [address] Sep, [place] [address] [facility] [id number] [address] [place] [address] Sep, [place] [address] [place] [id number] [address] [place] [address] Sep, Dysthymic disorder F34.1 and Generalized anxiety disorder F41.1 [place] [address] [place] [id number] [place] [address] Sep, Asthma with acute exacerbati on in adult J45.901 ; Dysuria R30.0 ; Chronic kidney disease, stage 4 (severe) N18.4 and History of anemia Z86.2 [place] [address] [place] [id number] [address] [place] [address] Sep, Generalized anxiety disorder F41.1 and Dysthymic disorder F34.1 [place] [address] [place] [id number] [address] [place] [address] August, Screening breast examination Z12.39 and Acute recurrent maxillary sinusitis J01.01 [place] [address] [place] [id number] [address] [place] [address] August, Osteoarthritis of knees, jose ateral M17.0 [place] [address] [place] [id number] [address] [place] [address] August, Chronic kidney disease, 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 ; Acute non- recurrent maxillary sinusitis J01.00 ; Urinary problem R39.89 ; Bowel habit changes R19.4 ; Functional diarrhea K59.1 and History of colon polyps Z86.010 [facility] [address] [facility] [id number] [address] [place] [address] Jul, Dysthymic disorder F34.1 and Generalized anxiety disorder F41.1 [facility] [address] [facility] [id number] [address] [place] [address] Jul, [facility] [address] [facility] [id number] [address] [place] [address] Jul, Dysthymic disorder F34.1 ; G eneralized anxiety disorder F41.1 and lobsterman use of drug Z79.899 [place] [address] [facility] [id number] [address] [place] [address] Jul, [facility] [address] [facility] [id number] [address] [place] [address] Jun, [facility] [address] [facility] [id number] [address] [place] [phone] Jun, [facility] [address] [facility] [id number] [address] [place] [id number] 17 May, 2015 [place] [address] [place] [id number] [address] [place] [address] May, Dysthymic disorder F34.1 and Generalized anxiety disorder F41.1 [facility] [address] [facility] [id number] [address] [place] [address] Apr, Kidney disease N28.9 [facility] [address] [facility] [id number] [address] [place] [address] Apr, Generalized anxiety disorder F41.1 and Dysthymic disorder F34.1 [facility] [address] [facility] [id number] [address] [place] [address] Apr, Chronic kidney disease, 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 [place] [address] [address] Apr, Generalized anxiety disorder F41.1 ; Major depression, recurrent F33.9 and Sleep disturbance G47.9 [place] [address] [address] Mar, Generalized anxiety disorder F41.1 and Dysthymic disorder F34.1 [place] [address] [address] Mar, Generalized anxiety disorder F41.1 ; Dysthymic disorder F34.1 and Insomnia G47.00 [place] [address] [address] Mar, [place] [address] [address] Mar, [place] [address] [address] Mar, Osteoarthritis of knees, jose ateral M17.[address] [address] Mar, Hypertension I10 ; Hypothyro id E03.9 ; Dysthymic disorder F34.1 ; Chronic kidney disease, stage 4 (severe) N18.4 and Nausea & vomiting R11.2 [place] [address] [address] Mar, Generalized anxiety disorder F41.1 ; Dysthymic disorder F34.1 and Insomnia G47.00 [place] [address] [address] Mar, Dehydration E86.0 ; Chronic kidney disease, stage 4 (severe) N18.4 and Nausea & vomiting R11.2 [facility] [address] [place] [id number] [address] [place] [address] Mar, Gastroenteritis K52.[address] [address] Mar, [address] [address] Mar, [address] [address] Feb, Dysthymic disorder F34.1 and Generalized anxiety disorder F41.[address] [address] Jan, UTI (urinary tract infection ) N39.0 ; Asthma J45.909 ; Coronary artery disease involving chehalis coronary artery of chehalis heart, angina presence unspecified I25.10 ; Hypertension I10 ; Hypothyroid E03.9 ; Vitamin D deficiency E55.9 ; Insomnia G47.00 ; Palpitations R00.2 ; Depressed F32.9 ; Restless leg G25.81 and Anxiety F41.[address] [address] Jan, Dysthymic disorder F34.1 and Generalized anxiety disorder F41.[address] [address] Jan, [address] [address] Dec, [address] [address] Dec, Alkalosis 276.3 ; Chronic ki dney disease, Stage IV (severe) 585.4 ; Hyperpotassemia 276.7 ; Secondary hyperparathyroidism, renal 588.81 ; Proteinuria 791.0 ; Unspecified vitamin D deficiency 268.9 ; Anemia in chronic kidney disease 285.21 ; Other and unspecified hyperlipidemia 272.4 ; Hypertension, essential, benign 401.1 and Chronic kidney disease (CKD), stage III (moderate) 585.[address] [address] Dec, [facility] [address] [facility] [id number] [address] [place] [address] Dec, Depressive disorder, not els ewhere classified 311 and Generalized anxiety disorder 300.02 [facility] [address] [facility] [id number] [address] [place] [address] Dec, [facility] [address] [place] [id number] [place] [address] Dec, [facility] [address] [facility] [id number] [address] [place] [address] Nov, Depressive disorder, not els ewhere classified 311 and Generalized anxiety disorder 300.02 [place] [address] [place] [id number] [address] [place] [address] Nov, Arthritis of both knees 716. [address] [address] Nov, PAF (paroxysmal atrial fibri llation) 427.31 ; CAD (coronary artery disease) 414.00 ; Chest pain 786.50 and Chronic kidney disease (CKD) stage G4/A1, severely decreased glomerular filtration rate (GFR) between 15-29 mL/min/1.73 square meter and albuminuria creatinine ratio less than 30 mg/g 585.4 [place] [address] [place] [id number] [address] [place] [address] Oct, Coronary atherosclerosis of unspecified type of vessel, chehalis or graft 414.00 ; Chronic kidney disease, Stage IV (severe) 585.4 ; Hypertension 401.9 and Edema 782.3 [place] [address] [place] [id number] [address] [place] [address] Oct, Depressive disorder, not els ewhere classified 311 and Generalized anxiety disorder 300.02 [facility] [address] [facility] [id number] [address] [place] [id number] Oct, Depressive disorder, not els ewhere classified 311 and Generalized anxiety disorder 300.02 [place] [address] [id number] Oct, [facility] [address] [id number] Oct, [facility] [address] [phone] Sep, [facility] [address] [id number] Sep, Chronic kidney disease, Stag e IV (severe) 585.4 [facility] [address] [id number] Sep, [facility] [address] [address] Sep, Coronary atherosclerosis of unspecified type of vessel, [place] or graft 414.00 ; Hypertension 401.9 ; Edema 782.3 and Hypothyroidism 244.9 [place] [address] [address] Sep, Coronary atherosclerosis of unspecified type of vessel, [place] or graft 414.00 ; Hypertension 401.9 ; Fibromyalgia 729.1 ; Edema 782.3 ; Hypothyroidism 244.9 and Anemia 285.9 [facility] [address] [address] Sep, Anxiety disorder, unspecifie d 300.00 and Depressive disorder, not elsewhere classified 311 [facility] [address] [id number] Sep, [facility] [address] [address] August, Generalized anxiety disorder 300.02 [place] [address] [address] August, Closed fracture of lateral m alleolus 824.2 [facility] [address] [address] Jul, [facility] [address] [id number] [address] [place] [address], [place] [address] 13 Jul, 2014 [facility] [address] [id number] [address] [place] [address], [place] [address] Jun, [facility] [address] [id number] [address] [place] [address], [place] [address] Jun, [facility] [address] [id number] [address] [place] [address], [place] [address] Jun, [facility] [address] [id number] [address] [place] [address], [place] [address] Jun, [facility] [address] [id number] [address] [place] [address], [place] [address] Jun, [facility] [address] [id number] [address] [place] [address], [place] [address] Jun, [facility] [address] [id number] [address] [place] [address], [place] [address] May, 2014 [facility] [address] [id number] [address] [place] [address], [place] [address] 19 May, 2014 [facility] [address] [id number] [address] [place] [address], [place] [address] 18 May, 2014 [facility] [address] [id number] [address] [place] [address], [place] [address] 18 May, 2014 [facility] [address] [id number] [address] [place] [address], [place] [address] 16 May, 2014 [facility] [address] [id number] [address] [place] [address], [place] [address] 16 May, 2014 [facility] [address] [id number] [address] [place] [address], [place] [address] 13 May, 2014 [facility] [address] [id number] [address] [place] [address], [place] [address] 13 May, 2014 [facility] [address] [id number] [address] [place] [address] [place] [address] 10 May, 2014 [facility] [address] [id number] [address] [place] [address], [place] [address] 10 May, 2014 [facility] [address] [id number] [address] [place] [address], [place] [address] Apr, [facility] [address] [id number] [address] [place] [address], [place] [address] Apr, [facility] [address] [id number] [address] [place] [address], [place] [address] Mar, [facility] [address] [id number] [address] [place] [address], [place] [address] Mar, [facility] [address] [id number] [address] [place] [address], [place] [address] Mar, [facility] [address] [id number] [address] [place] [address], [place] [address] 15 Mar, 2014 [facility] [address] [id number] [address] [place] [address], [place] [address] Mar, [facility] [address] [id number] [address] [place] [address], [place] [address] Mar, [facility] [address] [id number] [address] [place] [address], [place] [address] Mar, [facility] [address] [id number] [address] [place] [address], [place] [address] Feb, [facility] [address] [id number] [address] [place] [address], [place] [address] Feb, [facility] [address] [id number] [address] [place] [address], [place] [address] Feb, [facility] [address] [id number] [address] [place] [address], [place] [address] Jan, [facility] [address] [id number] [address] [place] [address], [place] [address] Jan, [facility] [address] [id number] [address] [place] [address], [place] [address] Jan, [facility] [address] [id number] [address] [place] [address], [place] [address] Jan, [facility] [address] [id number] [address] [place] [address], [place] [address] Jan, [facility] [address] [id number] [address] [place] [address], [place] [address] Jan, [facility] [address] [id number] [address] [place] [address], [place] [address] Jan, [facility] [address] [id number] [address] [place] [address], [place] [address] Jan, [facility] [address] [id number] [address] [place] [address], [place] [address] Jan, [facility] [address] [id number] [address] [place] [address], [place] [address] Jan, [facility] [address] [id number] [address] [place] [address], [place] [address] Nov, [facility] [address] [id number] [address] [place] [address], [place] [address] Nov, [facility] [address] [id number] [address] [place] [address], [place] [address] Nov, [facility] [address] [id number] [address] [place] [address], [place] [address] Oct, [facility] [address] [id number] [address] [place] [address], [place] [address] Oct, [facility] [address] [id number] [address] [place] [address], [place] [address] Oct, [facility] [address] [id number] [address] [place] [address], [place] [address] Oct, [facility] [address] [id number] [address] [place] [address], [place] [address] Oct, [facility] [address] [id number] [address] [place] [address], [place] [address] Oct, [facility] [address] [id number] [address] [place] [address], [place] [address] Oct, [facility] [address] [id number] [address] [place] [address], [place] [address] Oct, [facility] [address] [id number] [address] [place] [address], [place] [address] Oct, [facility] [address] [id number] [address] [place] [address], [place] [address] Sep, [facility] [address] [id number] [address] [place] [address], [place] [address] Sep, [facility] [address] [id number] [address] [place] [address], [place] [address] Sep, [facility] [address] [id number] [address] [place] [address], [place] [address] Sep, [facility] [address] [id number] [address] [place] [address], [place] [address] Sep, [facility] [address] [id number] [address] [place] [address], [place] [address] Sep, [facility] [address] [id number] [address] [place] [address], [place] [address] Sep, [facility] [address] [id number] [address] [place] [address], [place] [address] Sep, [facility] [address] [id number] [address] [place] [address], [place] [address] Sep, [facility] [address] [id number] [address] [place] [address], [place] [address] August, [facility] [address] [id number] [address] [place] [address], [place] [address] August, [facility] [address] [id number] [address] [place] [address], [place] [address] August, [facility] [place] [address] [id number] [address] [place] [address], [place] [address] August, [facility] [address] [id number] [address] [place] [address], [place] [address] August, [facility] [address] [id number] [address] [place] [address], [place] [address] August, [facility] [address] [id number] [address] [place] [address], [place] [address] Jul, [facility] [address] [id number] [address] [place] [address], [place] [address] Jul, [facility] [address] [id number] [address] [place] [address], [place] [address] Jul, [facility] [address] [id number] [address] [place] [address], [place] [address] Jul, [facility] [address] [id number] [address] [place] [address], [place] [address] Jul, [facility] [address] [id number] [address] [place] [address], [place] [address] Jul, [facility] [address] [id number] [address] [place] [address], [place] [address] Jun, [facility] [address] [id number] [address] [place] [address], [place] [address] Jun, [facility] [address] [id number] [address] [place] [address], [place] [address] May, [facility] [address] [id number] [address] [place] [address], [place] [address] May, [facility] [address] [id number] [address] [place] [address], [place] [address] May, [facility] [address] [id number] [address] [place] [address], [place] [address] May, [facility] [address] [id number] [address] [place] [address], [place] [address] Apr, [facility] [address] [id number] [address] [place] [address], [place] [address] Apr, [facility] [address] [id number] [address] [place] [address], [place] [address] Mar, [facility] [address] [id number] [address] [place] [address], [place] [address] Mar, [facility] [address] [id number] [address] [place] [address], [place] [address] Mar, [facility] [address] [id number] [address] [place] [address], [place] [address] Mar, [facility] [address] [id number] [address] [place] [address], [place] [address] Mar, [facility] [address] [id number] [address] [place] [address], [place] [address] 05 Mar, 2013 [facility] [address] [id number] [address] [place] [address], [place] [address] Feb, [facility] [address] [id number] [address] [place] [address], [place] [address] Feb, [facility] [address] [id number] [address] [place] [address], [place] [address] 14 Feb, 2013 [facility] [address] [id number] [address] [place] [address] 14 Feb, 2013 [facility] [address] [id number] [address] [place] [address], [place] [address] 05 Feb, 2013 [facility] [address] [id number] [address] [place] [address], [place] [address] 05 Feb, 2013 [facility] [address] [id number] [address] [place] [address], [place] [address] 24 Jan, 2013 [facility] [address] [id number] [address] [place] [address], [place] [address] 24 Jan, 2013 [facility] [address] [id number] [address] [place] [address], [place] [address] Jan, [facility] [address] [id number] [address] [place] [address], [place] [address] Jan, [facility] [address] [id number] [address] [place] [address], [place] [address] Jan, [facility] [address] [id number] [address] [place] [address], [place] [address] Jan, [facility] [address] [id number] [address] [place] [address], [place] [address] Dec, [facility] [address] [id number] [address] [place] [address], [place] [address] Dec, [facility] [address] [id number] [address] [place] [address], [place] [address] Nov, [facility] [address] [id number] [address] [place] [address], [place] [address] Nov, [facility] [address] [id number] [address] [place] [address], [place] [address] Oct, [facility] [address] [id number] [address] [place] [address], [place] [address] Oct, [facility] [address] [id number] [address] [place] [address], [place] [address] Oct, [facility] [address] [id number] [address] [place] [address], [place] [address] Oct, [facility] [address] [id number] [address] [place] [address], [place] [address] Oct, [facility] [address] [id number] [address] [place] [address], [place] [address] Oct, [facility] [address] [id number] [address] [place] [address], [place] [address] Sep, [facility] [address] [id number] [address] [place] [address], [place] [address] Sep, [facility] [address] [id number] [address] [place] [address], [place] [address] Sep, [facility] [address] [id number] [address] [place] [address], [place] [address] Sep, [facility] [address] [id number] [address] [place] [address], [place] [address] August, [facility] [address] [id number] [address] [place] [address], [place] [address] August, [facility] [address] [id number] [address] [place] [address], [place] [address] August, [facility] [address] [id number] [address] [place] [address], [place] [address] August, [facility] [address] [id number] [address] [place] [address], [place] [address] August, [facility] [address] [id number] [address] [place] [address], [place] [address] Jul, [facility] [address] [id number] [address] [place] [address], [place] [address] Jul, [facility] [address] [id number] [address] [place] [address], [place] [address] Jul, [facility] [address] [id number] [address] [place] [address], [place] [address] Jul, [facility] [address] [id number] [address] [place] [address], [place] [address] Jul, [facility] [address] [id number] [address] [place] [address], [place] [address] Jul, [facility] [address] [id number] [address] [place] [address], [place] [address] Jul, [facility] [address] [id number] [address] [address] Jul, [facility] [address] [id number] [address] [place] [address], [place] [address] Jul, [facility] [address] [id number] [address] [place] [address], [place] [address] Jul, [facility] [address] [id number] [id number] Jun, [facility] [address] [id number] [address] [place] [address], [place] [address] Jun, [facility] [address] [id number] [address] [place] [address], [place] [address] Jun, [facility] [address] [id number] [address] [place] [address], [place] [address] Jun, [facility] [address] [id number] [address] [place] [address], [place] [address] Jun, [facility] [address] [id number] [address] [place] [address], [place] [address] May, [facility] [address] [id number] [address] [place] [address], [place] [address] May, [facility] [address] [id number] [address] [place] [address], [place] [address] May, [facility] [address] [id number] [address] [place] [address], [place] [address] Apr, [facility] [address] [id number] [address] [place] [address] Apr, [facility] [address] [id number] [address] [place] [address], [place] [address] Apr, [facility] [address] [id number] [address] [place] [address], [place] [address] Apr, [facility] [address] [id number] [address] [place] [address] Apr, [facility] [address] [id number] [address] [place] [address], [place] [address] Apr, [facility] [place] [address] [id number] [address] [place] [address], [place] [address] Mar, [facility] [place] [address] [id number] [address] [place] [address], [place] [address] Mar, [facility] [place] [address] [id number] [address] [place] [address], [place] [address] Mar, [facility] [address] [id number] [address] [place] [address], [place] [address] Mar, [facility] [place] [address] [id number] [address] [place] [address], [place] [address] Feb, [facility] [place] [address] [id number] [address] [place] [address], [place] [address] Feb, [facility] [place] [address] [id number] [address] [place] [address], [place] [address] Feb, [facility] [place] [address] [id number] [address] [place] [address], [place] [address] Feb, [facility] [place] [address] [id number] [address] [place] [address], [place] [address] Feb, [facility] [address] [id number] [address] [place] [address], [place] [address] Feb, [facility] [place] [address] [id number] [address] [place] [address], [place] [address] Feb, [facility] [address] [id number] [address] [place] [address], [place] [address] Feb, [facility] [address] [id number] [address] [place] [address], [place] [address] Feb, [facility] [address] [id number] [address] [place] [address], [place] [address] Feb, [facility] [place] [address] [id number] [address] [place] [address], [place] [address] Feb, [facility] [address] [id number] [address] [place] [address], [place] [address] Feb, [facility] [address] [id number] [address] [place] [address], [place] [address] Feb, [facility] [address] [id number] [address] [place] [address], [place] [address] Feb, [facility] [address] [id number] [address] [place] [address], [place] [address] Feb, [facility] [address] [id number] [address] [place] [address], [place] [address] Feb, [facility] [address] [id number] [address] [place] [address], [place] [address] Jan, [facility] [address] [id number] [address] [place] [address], [place] [address] Jan, [facility] [address] [id number] [address] [place] [id number] Jan, [facility] [address] [id number] [address] [place] [address] Jan, [facility] [address] [id number] [address] [place] [id number] 30 Jan, 2012 [facility] [address] [id number] [address] [place] [id number] Jan, [facility] [address] [id number] [address] [place] [id number] Jan, [facility] [address] [id number] [address] [place] [id number] Jan, [facility] [address] [id number] [address] [place] [id number] 16 Jan, 2012 [facility] [address] [id number] [address] [place] [id number] 15 Jan, 2012 [facility] [address] [id number] [address] [place] [id number] 15 Jan, 2012 [facility] [address] [id number] [address] [place] [address], [place] [address] Jan, [facility] [address] [id number] [address] [place] [address], [place] [address] 26 Sep, 2011 [facility] [address] [id number] [address] [place] [address], [place] [address] 26 Sep, 2011 [facility] [address] [id number] [address] [place] [address], [place] [address] 24 Sep, 2011 [facility] [address] [id number] [address] [place] [address], [place] [address] 23 Dec, 2011 [facility] [address] [id number] [address] [place] [address], [place] [address] 22 Dec, 2011 [facility] [address] [id number] [address] [place] [address], [place] [address] 21 Dec, 2011 [facility] [address] [id number] [address] [place] [address], [place] [address] 20 Dec, 2011 [facility] [address] [id number] [address] [place] [address], [place] [address] 20 Dec, 2011 [facility] [address] [id number] [address] [place] [address], [place] [address] 07 Dec, 2011 [facility] [address] [id number] [address] [place] [address], [place] [address] 06 Sep, 2011 [facility] [address] [id number] [address] [place] [address], [place] [address] 06 Sep, 2011 [facility] [address] [id number] [address] [place] [address], [place] [address] 05 Sep, 2011 [facility] [address] [id number] [address] [place] [address], [place] [address] 23 Nov, 2011 [facility] [address] [id number] [address] [place] [address], [place] [address] 17 Nov, 2011 [facility] [address] [id number] [address] [place] [address], [place] [address] Nov, [facility] [address] [id number] [address] [place] [address], [place] [address] Nov, [facility] [address] [id number] [address] [place] [address], [place] [address] Nov, [facility] [address] [id number] [address] [place] [address], [place] [address] Nov, [facility] [address] [id number] [address] [place] [address], [place] [address] Nov, [facility] [address] [id number] [address] [place] [address], [place] [address] Nov, [facility] [address] [id number] [address] [place] [address], [place] [address] Oct, [facility] [address] [id number] [address] [place] [address], [place] [address] Oct, [facility] [address] [id number] [address] [place] [address], [place] [address] Oct, [facility] [address] [id number] [address] [place] [address], [place] [address] Oct, [facility] [address] [id number] [address] [place] [address], [place] [address] Oct, [facility] [address] [id number] [address] [place] [address], [place] [address] Oct, [facility] [address] [id number] [address] [place] [address], [place] [address] Oct, [facility] [address] [id number] [address] [place] [address], [place] [address] Sep, [facility] [address] [id number] [address] [place] [address], [place] [address] Sep, [facility] [address] [id number] [address] [place] [address], [place] [address] August, [facility] [address] [id number] [address] [place] [address], [place] [address] August, [facility] [address] [id number] [address] [place] [address], [place] [address] August, [facility] [address] [id number] [address] [place] [address], [place] [address] August, [facility] [address] [id number] [address] [place] [address], [place] [address] Jul, [facility] [address] [id number] [address] [place] [address], [place] [address] Jul, [facility] [address] [id number] [address] [place] [address], [place] [address] Jul, [facility] [address] [id number] [address] [place] [address], [place] [address] Jul, [facility] [address] [id number] [address] [place] [address], [place] [address] Jul, [facility] [address] [id number] [address] [place] [address], [place] [address] Jul, [facility] [address] [id number] [address] [place] [address], [place] [address] Jul, [facility] [address] [id number] [address] [place] [address], [place] [address] Jul, [facility] [address] [id number] [address] [place] [address], [place] [address] Jul, [facility] [address] [id number] [address] [place] [address], [place] [address] Jun, [facility] [address] [id number] [address] [place] [address], [place] [address] Jun, [facility] [address] [id number] [address] [place] [address], [place] [address] Jun, [facility] [address] [id number] [address] [place] [address], [place] [address] 14 Jun, 2011 [facility] [address] [id number] [address] [place] [address], [place] [address] 12 Jun, 2011 [facility] [address] [id number] [address] [place] [address], [place] [address] 09 Jun, 2011 [facility] [address] [id number] [address] [place] [address], [place] [address] Jun, [facility] [address] [id number] [address] [place] [address], [place] [address] May, [facility] [address] [id number] [address] [place] [address], [place] [address] 24 May, 2011 [facility] [address] [id number] [address] [place] [address], [place] [address] May, [facility] [address] [id number] [address] [place] [address], [place] [address] May, [facility] [address] [id number] [address] [place] [address], [place] [address] May, [facility] [address] [id number] [address] [place] [address], [place] [address] Apr, [facility] [address] [id number] [address] [place] [address], [place] [address] Apr, [facility] [address] [id number] [address] [place] [address], [place] [address] Apr, [facility] [address] [id number] [address] [place] [address], [place] [address] Apr, [facility] [address] [id number] [address] [place] [address], [place] [address] Apr, [facility] [address] [id number] [address] [place] [address], [place] [address] Mar, [facility] [address] [id number] [address] [place] [address], [place] [address] Mar, [facility] [address] [id number] [address] [place] [address], [place] [address] Mar, [facility] [address] [id number] [address] [place] [address], [place] [address] Mar, [facility] [address] [id number] [address] [place] [address], [place] [address] Mar, [facility] [address] [id number] [address] [place] [address], [place] [address] Mar, [facility] [address] [id number] [address] [place] [address], [place] [address] Mar, [facility] [address] [id number] [address] [place] [address], [place] [address] Feb, [facility] [address] [id number] [address] [place] [address], [place] [address] Feb, [facility] [address] [id number] [address] [place] [address] Feb, [facility] [address] [id number] [address] [place] [address], [place] [address] Feb, [facility] [address] [id number] [address] [place] [id number] Jan, [facility] [address] [id number] [address] [place] [address] Jan, [facility] [address] [id number] [address] [place] [address] Jan, [facility] [address] [id number] [address] [place] [address], [place] [address] Jan, [facility] [address] [id number] [address] [place] [id number] Nov, [facility] [address] [id number] [address] [place] [address] Mar, [facility] [address] [id number] [address] [place] [address] Mar, [facility] [address] [facility] [id number] [address] [place] [address] Mar, [facility] [address] [facility] [id number] [address] [place] [id number] Mar, [facility] [address] [facility] [id number] [address] [place] [id number] Mar, [facility] [address] [facility] [id number] [address] [place] [phone] Mar, [facility] [address] [facility] [id number] [address] [place] [id number] Feb, [facility] [address] [facility] [id number] [address] [place] [phone] Feb, [facility] [address] [facility] [id number] [address] [place] [id number] Jan, [facility] [address] [facility] [id number] [address] [place] [id number] Jan, [facility] [address] [facility] [id number] [address] [place] [id number] Jan, IMMUNIZATIONS No Known Immunizations SOCIAL HISTORY [...] 4 Medical History zinker diverticulum was to temitope Quintanilla for this but cant affects swallowing. had a swallow study Medical History Closed fracture of lateral malleolus Medical History Female stress incontinence Medical History [place] Medical History arthritis Medical History CT chest 05/2017 revealed hyp odensity of paratracheal region. Radiologist rec CT 3-6 months with contrast Medical History Anemia, normocytic Medical History CPAP Noncompliance_ Dr. Madden advises a [employer] driving. Medical History Bacterial meningitis 12/2016 Medical History hole in retina Medical History History of colon polyps Medical History History of anemia Medical History Vitamin D deficiency Medical History Abnormal chest CT Surgical History cholecystectomy Surgical History appendectomy Surgical History hysterectomy-fibroids Surgical History section Surgical History neuroplasty with transpositi on of median nerve at carpal tunnel-bilateral carpal tunnel surgery (summer of 2009) Surgical History Esophageal surgery-Dr. Cruz Surgical History Colonoscopy History of Polyp s No Polyps on 2015 scope due to have repeat 2020 09-2015 & 2007 Surgical History Bladder surgery [facility] 03/2016 Surgical History Neurotransmitter placed 10/2017 Surgical History retninal repair 12/31/2017 Surgical History cataract surgery 2018 Surgical History cataract surgery 2018 Surgical History SCS trial x7 days 2018 Surgical History SCS implant removed. 2018 Surgical History right shoulder surgery to repair torn te ndons 02/2019 Hospitalization History Surgeries Only Hospitalization History bacterial meningitis December 2016 Hospitalization History [facility] psych for SI 1988 Hospitalization History [facility]-Altered mental status 05/2017 Hospitalization History sepsis, UTI, headache 08/03/2018-
--- OUTSIDE RECORDS SUMMARY | 2019-08-01 09:55 | XMS REPORT ---
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 Name Role Phone Migration, Doctor Unavailable Unavailable PROBLEMS Type Condition ICD9-CM Code AEP04-KA Code Onset Dates Condition S tatus SNOMED Code Problem Hypothyroid E03.9 Active 86423469 Problem Generalized anxiety disorder F41.1 A ctive 90888301 Problem Asthma J45.909 Active 958193027 Problem Insomnia G47.00 Active 937721645 Problem Mixed stress and urge urinary incontinence N39.46 Active 655907010 Problem Palpitations R00.2 Active 2278080 2 Problem Essential (primary) hypertension I10 Active 51818706 Problem Fibromyalgia M79.7 Active 7734555 05 Problem Body mass index (BMI) of 40.0-44.9 in adult Z68.41 Active 969793449 Problem Seasonal allergic rhinitis due to pollen J30.1 Active 78911007 Problem Restless leg syndrome G25.81 Active 99820862 Problem Hypercholesterolemia E78.00 Active 11588704 Problem Stage 3 chronic kidney disease N18.3 Active 522195627 Problem Hypertensive heart and chron ic kidney disease with heart failure and stage 1 through stage 4 chronic kidney disease, or unspecified chronic kidney disease I13.0 Active 94837784 Problem Primary osteoarthritis of left knee M17.12 Active 338852403 Problem Low back pain M54.5 Active 784073 009 Problem Chronic pain syndrome G89.4 Active 548938439 Problem Perimenopausal vasomotor symptoms N95.1 Active 087895597 Problem Major depressive disorder, recurrent, moderate F33 .1 Active 636125952 Problem Atherosclerosis of ewiiaapaayp co ronary artery of ewiiaapaayp heart with angina pectoris I25.119 Active [id number] ALLERGIES No Information ENCOUNTERS Encounter Location Date Diagnosis [facility] [place] [address] [facility] [id number] [address] [place] [phone] August, [facility] [place] [address] [facility] [id number] [address] [place] [phone] Jun, [facility] [place] [address] [place] [id number] [address] [place] [phone] Jun, Fibromyalgia M79.7 ; Stage 3 chronic kidney disease N18.3 ; Essential (primary) hypertension I10 ; Hypertensive heart and chronic kidney disease with heart failure and stage 1 through stage 4 chronic kidney disease, or unspecified chronic kidney disease I13.0 and Lymphadenopathy R59.1 [facility] [place] [address] [place] [phone] Jun, Chronic pain syndrome G89.4 [place] [address] [place] [phone] May, Cystitis N30.90 [place] [address] [place] [id number] [place] [phone] May, [facility] [place] [address] [place] [id number] [place] [phone] May, [facility] [address] [place] [id number] [place] [phone] May, Chronic pain syndrome G89.4 [place] [address] [place] [id number] [place] [phone] May, Generalized anxiety disorder F41.1 and Major depressive disorder, recurrent episode with anxious distress F33.9 [place] [address] [place] [phone] Apr, Major depressive disorder, r ecurrent, moderate F33.1 ; Generalized anxiety disorder F41.1 and Dysthymic disorder F34.1 [place] [address] [place] [id number] [address] [place] [phone] Apr, Chronic pain syndrome G89.4 [place] [address] [place] [id number] [address] [place] [phone] Apr, Acute pain of right knee M25 .561 [place] [address] [place] [id number] [address] [place] [phone] Apr, [facility] [place] [address] [place] [id number] [address] [place] [phone] Mar, Major depressive disorder, r ecurrent, moderate F33.1 ; Generalized anxiety disorder F41.1 and Dysthymic disorder F34.1 [facility] [address] [place] [phone] Mar, Fluid collection of middle e ar H65.90 and Dizziness R42 [facility] [place] [address] [place] [phone] Mar, [facility] [place] [address] [address] Mar, [facility] [place] [address] [address] Mar, Essential (primary) hyperten maria eugenia I10 ; Stage 3 chronic kidney disease N18.3 ; Hypercholesterolemia E78.00 ; Asthma J45.909 ; Recurrent UTI N39.0 ; Status post shoulder surgery Z98.890 and Encounter for immunization Z23 [facility] [place] [address] [address] Mar, Chronic pain syndrome G89.4 [place] [address] [place] [id number] [address] [place] [phone] Feb, [place] [address] [place] [id number] [address] [place] [phone] Feb, [facility] [place] [address] [place] [phone] Feb, Oral thrush B37.0 and Sore t hroat J02.9 [place] [address] [place] [id number] [address] [place] [phone] Feb, Chronic pain syndrome G89.4 [place] [address] [place] [id number] [address] [place] [phone] Jan, [facility] [place] [address] [place] [id number] [place] [phone] 14 Jan, 2019 Chronic pain syndrome G89.4 [place] [address] [facility] [id number] [address] [place] [phone] 02 Jan, 2019 Hypercholesterolemia E78.00 [place] [address] [place] [id number] [address] [place] [phone] Jan, [place] [address] [place] [id number] [address] [place] [id number] Dec, Chronic kidney disease, 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 [place] [address] [place] [id number] [address] [place] [phone] Dec, Major depressive disorder, r ecurrent, moderate F33.1 ; Generalized anxiety disorder F41.1 and Dysthymic disorder F34.1 [place] [address] [address] Dec, Generalized anxiety disorder F41.1 and Major depressive disorder, recurrent episode with anxious distress F33.9 [place] [address] [place] [phone] Dec, [place] [address] [address] Dec, [place] [address] [place] [id number] [address] [place] [phone] Dec, Encounter for immunization Z 23 [place] [address] [place] [id number] [address] [place] [phone] Dec, Diarrhea, unspecified type R 19.7 and Hemorrhoids, unspecified hemorrhoid type K64.9 [place] [address] [place] [id number] [address] [place] [phone] Dec, Encounter for Medicare annua l wellness exam Z00.00 ; Chronic kidney disease, stage 4 (severe) N18.4 ; Encounter for immunization Z23 ; Major depressive disorder, recurrent, moderate F33.1 ; Atherosclerosis of ewiiaapaayp coronary artery of ewiiaapaayp heart with angina pectoris I25.119 ; Asthma J45.909 ; Hypothyroid E03.9 and Fibromyalgia M79.7 [place] [address] [id number] [address] [place] [id number] Dec, Chronic pain syndrome G89.4 [place] [address] [id number] [address] [place] [phone] Nov, Major depressive disorder, r ecurrent, moderate F33.1 ; Generalized anxiety disorder F41.1 and Dysthymic disorder F34.1 [place] [address] [id number] [address] [place] [phone] Nov, [place] [address] [facility] [id number] [address] [place] [phone] Nov, Chronic pain syndrome G89.4 [place] [address] [facility] [id number] [address] [place] [phone] Nov, Restless leg syndrome G25.81 [place] [address] [facility] [id number] [address] [place] [id number] Nov, Pain in right shoulder M25.5 11 ; Restless leg syndrome G25.81 ; Other chronic pain G89.29 ; Screening for breast cancer Z12.39 ; Insomnia G47.00 and Morbid obesity E66.01 [place] [address] [facility] [id number] [address] [place] [phone] Nov, [place] [address] [facility] [id number] [address] [place] [phone] Oct, Major depressive disorder, r ecurrent, moderate F33.1 ; Generalized anxiety disorder F41.1 and Dysthymic disorder F34.1 [place] [address] [facility] [id number] [address] [place] [phone] Oct, [place] [address] [facility] [id number] [address] [place] [id number] Oct, Cellulitis of left lower ext remity L03.116 and Morbid obesity E66.01 [facility] [address] [id number] [address] [place] [phone] Oct, [facility] [place] [address] [id number] [address] [place] [phone] Oct, [facility] [place] [address] [id number] [address] [place] [phone] Oct, Generalized anxiety disorder F41.1 and Major depressive disorder, recurrent episode with anxious distress F33.9 [facility] [address] [id number] [address] [place] [phone] Oct, [facility] [place] [address] [id number] [address] [place] [phone] Oct, Chronic pain syndrome G89.4 [facility] [place] [address] [id number] [address] [place] [id number] Oct, Chronic pain syndrome G89.4 [facility] [address] [id number] [address] [place] [phone] Oct, UTI symptoms R39.9 ; Acute c ystitis without hematuria N30.00 and Morbid obesity E66.01 [facility] [place] [address] [id number] [address] [place] [phone] Oct, [facility] [place] [address] [id number] [address] [place] [phone] Oct, Chronic pain syndrome G89.4 [facility] [place] [address] [id number] [address] [place] [phone] Sep, [facility] [place] [address] [facility] [id number] [address] [place] [phone] Sep, Generalized anxiety disorder F41.1 and Major depressive disorder, recurrent episode with anxious distress F33.9 [facility] [place] [address] [id number] [address] [place] [id number] Sep, Chronic kidney disease, 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 [facility] [place] [address] [facility] [id number] [address] [place] [phone] 2018 Fibromyalgia M79.7 and Chron ic pain syndrome G89.4 [facility] [place] [address] [facility] [id number] [address] [place] [phone] Sep, [facility] SYED MENG [id number] [place] [address] Sep, Chronic pain syndrome G89.4 [facility] [place] [address] [facility] [id number] [address] [place] [phone] Sep, [facility] [place] [address] [facility] [id number] [address] [place] [id number] Sep, Chronic pain syndrome G89.4 ; Fibromyalgia M79.7 and Morbid obesity E66.01 [facility] [place] [address] [facility] [id number] [address] [place] [phone] August, Generalized anxiety disorder F41.1 and Major depressive disorder, recurrent episode with anxious distress F33.9 [facility] [place] [address] [facility] [id number] [address] [place] [phone] August, Fibromyalgia M79.7 [facility] [place] [address] [facility] [id number] [address] [place] [phone] August, Restless leg syndrome G25.81 ; Vitamin D deficiency E55.9 ; Urinary tract infection without hematuria, site unspecified N39.0 ; Pain in right shoulder M25.511 ; Other chronic pain G89.29 ; Biceps tendinitis on right M75.21 and Morbid obesity E66.01 [facility] [place] [address] [facility] [id number] [address] [place] [phone] Jul, Urinary tract infection with out hematuria, site unspecified N39.0 and Morbid obesity E66.01 [facility] [place] [address] [facility] [id number] [address] [place] [phone] Jul, [facility] [place] [address] [facility] [id number] [address] [place] [phone] Jul, [facility] [place] [address] [facility] [id number] [address] [place] [phone] Jul, Fibromyalgia M79.7 [place] [address] [place] [id number] [address] [place] [id number] Jul, Acute pain of right shoulder M25.511 [facility] [place] [address] [facility] [id number] [address] [place] [phone] Jul, Acute pain of right shoulder M25.511 and Morbid obesity E66.01 [facility] [place] [address] [facility] [id number] [address] [place] [phone] Jun, [place] [address] [place] [id number] [place] [phone] Jun, Generalized anxiety disorder F41.1 and Major depressive disorder, recurrent episode with anxious distress F33.9 [place] [address] [place] [id number] [address] [place] [id number] Jun, [place] [address] [place] [id number] [place] [phone] Jun, Fibromyalgia M79.7 [facility] [address] [facility] [id number] [place] [address] Jun, Acute pain of right shoulder M25.511 ; Acute pain of right hip M25.551 and Morbid obesity E66.01 [place] [address] [place] [id number] [address] [place] [phone] May, Burning with urination R30.0 ; Vaginal discharge N89.8 ; Chronic kidney disease, stage 4 (severe) N18.4 ; Body mass index (BMI) of 40.0-44.9 in adult Z68.41 and Morbid obesity E66.01 [place] [address] [place] [id number] [address] [place] [phone] May, Fibromyalgia M79.7 [facility] [place] [address] [place] [id number] [address] [place] [id number] May, Generalized anxiety disorder F41.1 and Major depressive disorder, recurrent episode with anxious distress F33.9 [facility] [place] [address] [id number] [address] [place] [phone] Apr, [facility] [place] [address] [id number] [address] [place] [id number] 08 Apr, 2018 Fibromyalgia M79.7 [facility] [address] [id number] [address] [place] [phone] Mar, Acute UTI N39.0 and Dysuria R30.0 [facility] [place] [address] [id number] [address] [place] [phone] 10 Mar, 2018 Fibromyalgia M79.7 [facility] [place] [address] [id number] [address] [place] [phone] 15 Feb, 2018 [facility] [place] [address] [id number] [address] [place] [phone] 14 Feb, 2018 [facility] [place] [address] [id number] [address] [place] [phone] Feb, [facility] [place] [address] [id number] [address] [place] [phone] Feb, Fibromyalgia M79.7 [facility] [place] [address] [id number] [address] [place] [phone] 08 Feb, 2018 Complicated UTI (urinary tra ct infection) N39.0 [facility] [place] [address] [id number] [address] [place] [phone] Feb, [facility] [place] [address] [id number] [address] [place] [phone] Jan, Generalized anxiety disorder F41.1 and Major depressive disorder, recurrent episode with anxious distress F33.9 [facility] [address] [id number] [address] [place] [phone] Jan, Acute conjunctivitis of left eye, unspecified acute conjunctivitis type H10.32 [facility] [place] [address] [id number] [address] [place] [phone] Jan, [facility] [place] [address] [id number] [address] [place] [phone] Jan, Acute non-recurrent maxillar y sinusitis J01.00 ; Dysuria R30.0 ; Perimenopausal vasomotor symptoms N95.1 and Fibromyalgia M79.7 [facility] [place] [address] [id number] [address] [place] [phone] Dec, Vitamin D deficiency E55.9 [facility] [place] [address] [id number] [address] [place] [phone] Dec, Vitamin D deficiency E55.9 [facility] [place] [address] [id number] [address] [place] [id number] Dec, Vitamin D deficiency E55.9 [facility] [place] [address] [id number] [address] [place] [id number] Dec, [facility] [place] [address] [id number] [address] [place] [phone] Dec, Fibromyalgia M79.7 [facility] [place] [address] [id number] [address] [place] [phone] Nov, [facility] [place] [address] [id number] [address] [place] [phone] Nov, [facility] [place] [address] [id number] [address] [place] [phone] Nov, [facility] [place] [address] [id number] [address] [place] [phone] Nov, Fibromyalgia M79.7 ; Vision changes H53.9 ; Chest wall pain R07.89 and Chronic pain syndrome G89.4 [facility] [place] [address] [id number] [address] [place] [phone] Nov, [facility] [place] [address] [facility] [id number] [address] [place] [phone] Nov, Rash of hands R21 [facility] [place] [address] [id number] [address] [place] [phone] Nov, Generalized anxiety disorder F41.1 and Major depressive disorder, recurrent episode with anxious distress F33.9 [place] [address] [facility] [id number] [address] [place] [phone] Nov, Fibromyalgia M79.7 [place] [address] [facility] [id number] [address] [place] [phone] Nov, Complicated UTI (urinary tra ct infection) N39.0 [place] [address] [facility] [id number] [address] [place] [phone] Oct, [place] [address] [facility] [id number] [address] [place] [phone] Oct, Generalized anxiety disorder F41.1 and Major depressive disorder, recurrent episode with anxious distress F33.9 [place] [address] [address] [place] [id number] [address] [place] [phone] Oct, [place] [address] [address] [place] [id number] [address] [place] [phone] Oct, Fibromyalgia M79.7 [place] [address] [address] [place] [id number] [address] [place] [phone] Sep, Restless leg syndrome G25.81 and Restless leg G25.81 [place] [address] [address] [place] [id number] [address] [place] [phone] Sep, [place] [address] [address] [place] [id number] [address] [place] [phone] Sep, Seasonal allergic rhinitis d ue to pollen J30.1 ; Screening for breast cancer Z12.31 ; Chest pain at rest R07.9 ; Restless leg syndrome G25.81 ; Essential (primary) hypertension I10 and Depressed F32.9 [place] [address] [address] [place] [id number] [address] [place] [phone] August, Fibromyalgia M79.7 [place] [address] [address] [place] [id number] [address] [place] [phone] August, [facility] [place] [address] [facility] [id number] [address] [place] [phone] August, [facility], [place], [facility] [address] [facility] [id number] [address] [place] [phone] August, Abnormal chest CT R93.8 [facility], [place], [facility] [address] [facility] [id number] [address] [place] [phone] August, Generalized anxiety disorder F41.1 and Major depressive disorder, recurrent episode with anxious distress F33.9 [facility], [place], [facility] [address] [facility] [id number] [address] [place] [phone] August, Abnormal chest CT R93.8 [facility], [place], [facility] [address] [facility] [id number] [address] [place] [phone] Jul, [facility] [place] [address] [facility] [id number] [address] [place] [id number] Jul, Chronic kidney disease, 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 [facility] [place] [address] [facility] [id number] [address] [place] [phone] Jul, [place] [address] [address] [facility] [id number] [address] [place] [id number] Jul, Restless leg G25.81 ; Mixed stress and urge urinary incontinence N39.46 and Fibromyalgia M79.7 [facility] [place] [address] [facility] [id number] [address] [place] [id number] Jul, Chronic kidney disease, 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 [facility] [place] [address] [facility] [id number] [address] [place] [phone] Jun, Orthostatic hypotension I95. 1 ; Chronic kidney disease, stage 4 (severe) N18.4 ; Chest wall discomfort R07.89 and Body mass index (BMI) of 40.0- 44.9 in adult Z68.41 [place] [address] [address] [place] [id number] [address] [place] [phone] Jun, [facility] [place] [address] [facility] [id number] [address] [place] [phone] Jun, Orthostatic hypotension I95. 1 [facility] [place] [address] [facility] [id number] [address] [place] [phone] Jun, [facility] [address] [facility] [id number] [address] [place] [phone] Jun, Orthostatic hypotension I95. 1 ; Dysuria R30.0 and Acute cystitis without hematuria N30.00 [facility] [place] [address] [facility] [id number] [address] [place] [phone] Jun, [facility] [place] [address] [facility] [id number] [address] [place] [id number] Jun, Chronic kidney disease, 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 [facility] [place] [address] [facility] [id number] [address] [place] [phone] Jun, Fibromyalgia M79.7 [facility] [place] [address] [facility] [id number] [address] [place] [phone] Jun, [facility] [place] [address] [facility] [id number] [address] [place] [phone] Jun, [facility] [place] [address] [facility] [id number] [address] [place] [phone] May, Abnormal chest CT R93.8 and Stage 3 chronic kidney disease N18.3 [facility] [place] [address] [facility] [id number] [address] [place] [phone] May, Chronic kidney disease, 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 [facility] [place] [address] [facility] [id number] [address] [place] [phone] May, Chronic kidney disease, 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 [facility] [place] [address] [facility] [id number] [address] [place] [phone] May, Abnormal chest [address] R93.8 [facility] [place] [address] [id number] [address] [place] [phone] May, [facility] [place] [address] [id number] [address] [place] [phone] May, [facility] [place] [address] [id number] [address] [place] [id number] May, Generalized anxiety disorder F41.1 and Major depressive disorder, recurrent episode with anxious distress F33.9 [facility] [place] [address] [id number] [address] [place] [phone] May, Mood disorder F39 [facility] [place] [address] [id number] [address] [place] [phone] Apr, [facility] [place] [address] [id number] [address] [place] [id number] Apr, Infected skin lesion L08.9 a nd Muscle strain of right shoulder region, initial encounter S46.911A [facility] [place] [address] [id number] [address] [place] [id number] Apr, Generalized anxiety disorder F41.1 and Major depressive disorder, recurrent episode with anxious distress F33.9 [facility] [place] [address] [id number] [address] [place] [id number] Apr, [facility] [place] [address] [id number] [address] [place] [id number] Apr, Recent urinary tract infecti on Z87.440 and Hypothyroid E03.9 [facility] [place] [address] [id number] [address] [place] [phone] Apr, Generalized anxiety disorder F41.1 and Major depressive disorder, recurrent episode with anxious distress F33.9 [facility] [place] [address] [id number] [address] [place] [id number] Apr, Recent urinary tract infecti on Z87.440 [facility] [place] [address] [id number] [address] [place] [phone] Mar, [facility] [address] [facility] [id number] [address] [place] [phone] Mar, Dysuria R30.0 ; Acute cystit is without hematuria N30.00 and BMI 40.0-44.9, adult Z68.41 [facility] [place] [address] [facility] [id number] [address] [place] [id number] 14 Mar, 2017 [facility] [place] [address] [facility] [id number] [address] [place] [phone] Mar, [facility] [place] [address] [facility] [id number] [address] [place] [phone] Mar, Generalized anxiety disorder F41.1 and Major depressive disorder, recurrent episode with anxious distress F33.9 [place] [address] [address] [facility] [id number] [address] [place] [phone] 29 Feb, 2017 Conjunctivitis, bacterial H1 0.9 [place] [address] [facility] [id number] [address] [place] [phone] Feb, [facility] [address] [facility] [id number] [address] [place] [phone] Feb, Conjunctivitis, bacterial H1 0.9 [facility] [place] [address] [facility] [id number] [address] [place] [phone] 15 Feb, 2017 [facility] [address] [facility] [id number] [address] [place] [phone] 10 Feb, 2017 Dysuria R30.0 ; Acute cystit is N30.00 and BMI 40.0-44.9, adult Z68.41 [facility] [place] [address] [facility] [id number] [address] [place] [phone] Feb, [place] [address] [address] [facility] [id number] [address] [place] [phone] Feb, Generalized anxiety disorder F41.1 and Major depressive disorder, recurrent episode with anxious distress F33.9 [place] [address] [address] [place] [id number] [address] [place] [phone] Feb, Mood disorder F39 and BMI 40 .0-44.9, adult Z68.41 [facility] [place] [address] [facility] [id number] [address] [place] [id number] Jan, [facility] [place] [address] [facility] [id number] [address] [place] [phone] Jan, [facility] [place] [address] [place] [id number] [address] [place] [id number] Jan, Hypothyroid E03.9 [facility] [place] [address] [facility] [id number] [address] [place] [phone] Jan, [facility] [place] [address] [place] [id number] [place] [phone] Jan, Chronic kidney disease, unsp ecified N18.9 ; Hypokalemia E87.6 ; Essential (primary) hypertension I10 ; Fibromyalgia M79.7 ; Coronary artery disease involving ewiiaapaayp coronary artery of ewiiaapaayp heart, angina presence unspecified I25.10 ; Hypothyroid E03.9 and Encounter for immunization Z23 [facility] [place] [address] [place] [id number] [address] [place] [phone] Jan, Hypothyroid E03.9 [facility] [place] [address] [facility] [id number] [address] [place] [phone] Jan, [facility] [place] [address] [place] [id number] [address] [place] [phone] Dec, Vitamin D deficiency E55.9 [facility] [place] [address] [facility] [id number] [address] [place] [id number] Dec, Primary osteoarthritis of le ft knee M17.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 [facility] [place] [address] [facility] [id number] [address] [place] [phone] Dec, Fibromyalgia M79.7 [facility] [place] [address] [place] [id number] [address] [place] [phone] 18 Dec, 2016 Mood disorder F39 [facility] [place] [address] [id number] [address] [place] [phone] 13 Dec, 2016 [facility] [place] [address] [id number] [address] [place] [id number] 13 Dec, 2016 Generalized anxiety disorder F41.1 and Major depressive disorder, recurrent episode with anxious distress F33.9 [facility] [place] [address] [id number] [address] [place] [id number] 11 Dec, 2016 [facility] [place] [address] [id number] [address] [place] [phone] 08 Dec, 2016 Streptococcal meningitis G00 .2 [facility] [place] [address] [id number] [address] [place] [phone] 07 Dec, 2016 Streptococcal meningitis G00 .2 [facility] [place] [address] [id number] [address] [place] [phone] 07 Dec, 2016 [facility] [place] [address] [id number] [address] [place] [phone] 06 Dec, 2016 Streptococcal meningitis G00 .2 [facility] [place] [address] [id number] [address] [place] [id number] 06 Dec, 2016 [facility] [place] [address] [id number] [address] [place] [phone] 06 Dec, 2016 Major depressive disorder, r ecurrent episode with anxious distress F33.9 [facility] [place] [address] [id number] [address] [place] [phone] Nov, Fever, unspecified fever cau se R50.9 [facility] [place] [address] [id number] [address] [place] [id number] 24 Nov, 2016 [facility] [place] [address] [id number] [address] [place] [phone] 16 Nov, 2016 Hypothyroid E03.9 [facility] [place] [address] [id number] [address] [place] [phone] Nov, Generalized anxiety disorder F41.1 and Major depressive disorder, recurrent episode with anxious distress F33.9 [facility] [place] [address] [id number] [address] [place] [phone] Nov, [facility] [address] [id number] [address] [place] [id number] Oct, Dental examination Z01.20 [facility] [place] [address] [id number] [address] [place] [phone] Oct, Generalized anxiety disorder F41.1 and Major depressive disorder, recurrent episode with anxious distress F33.9 [facility] [place] [address] [id number] [address] [place] [phone] Oct, Chronic kidney disease, 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 [facility] [place] [address] [id number] [address] [place] [phone] Oct, [facility] [place] [address] [facility] [id number] [address] [place] [phone] Oct, Fibromyalgia M79.7 [facility] [place] [address] [id number] [address] [place] [phone] Oct, [facility] [place] [address] [facility] [id number] [address] [place] [phone] Oct, Generalized anxiety disorder F41.1 ; Major depressive disorder, recurrent episode with anxious distress F33.9 and Bipolar disorder, current episode manic without psychotic features F31.10 [facility] [place] [address] [id number] [address] [place] [phone] Sep, [facility] [place] [address] [id number] [address] [place] [phone] Sep, [facility] [place] [address] [facility] [id number] [address] [place] [phone] Sep, Vitamin D deficiency E55.9 [facility] [place] [address] [id number] [address] [place] [phone] 14 Sep, 2016 Vitamin D deficiency E55.9 [facility] [place] [address] [place] [id number] [address] [place] [phone] Sep, [place] [address] [id number] Sep, Chronic kidney disease, 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 ; Hypothyroid E03.9 ; Restless leg G25.81 ; Fibromyalgia M79.7 ; Essential (primary) hypertension I10 ; Vitamin D deficiency E55.9 ; Dyspepsia R10.13 ; Anemia in chronic kidney disease D63.1 ; Chronic kidney disease, unspecified N18.9 ; Coronary artery disease involving ewiiaapaayp coronary artery of ewiiaapaayp heart, angina presence unspecified I25.10 ; Screening breast examination Z12.39 and Low back pain M54.5 [place] [address] [address] [place] [id number] [address] [place] [phone] August, Generalized anxiety disorder F41.1 and Major depressive disorder, recurrent episode with anxious distress F33.9 [place] [address] [phone] August, Generalized anxiety disorder F41.1 and Major depressive disorder, recurrent episode with anxious distress F33.9 [place] [address] [phone] August, Fibromyalgia M79.7 [place] [address] [id number] Jul, Generalized anxiety disorder F41.1 and Major depressive disorder, recurrent episode with anxious distress F33.9 [place] [id number] [place] [phone] Jul, Fibromyalgia M79.7 [place] [address] [id number] Jul, Generalized anxiety disorder F41.1 [place] [address] [address] [place] [id number] [address] [place] [phone] May, [place] [address] [id number] 16 May, 2016 Hypothyroid E03.9 [place] [address] [id number] [address] [place] [phone] 08 May, 2016 Chronic kidney disease, 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 ; Hypothyroid E03.9 ; Restless leg G25.81 ; Fibromyalgia M79.7 ; Essential (primary) hypertension I10 ; Vitamin D deficiency E55.9 ; Dyspepsia R10.13 ; Acute non-recurrent maxillary sinusitis J01.00 ; Anemia in chronic kidney disease D63.1 ; Chronic kidney disease, unspecified N18.9 and Coronary artery disease involving ewiiaapaayp coronary artery of ewiiaapaayp heart, angina presence unspecified I25.10 [place] [address] [id number] [address] [place] [phone] May, Vitamin D deficiency, unspec ified E55.9 [place] [address] [id number] [address] [place] [phone] May, Generalized anxiety disorder F41.1 and Major depressive disorder, recurrent episode with anxious distress F33.9 [place] [address] [id number] [address] [place] [id number] Apr, Pain in right knee M25.561 a nd Pain in left knee M25.562 [place] [address] [id number] [address] [place] [phone] Apr, [place] [address] [address] [facility] [id number] [address] [place] [phone] Apr, [place] [address] [id number] [address] [place] [phone] Apr, [place] [address] [facility] [id number] [address] [place] [phone] Mar, Generalized anxiety disorder F41.1 and Major depressive disorder, recurrent episode with anxious distress F33.9 [place] [address] [facility] [id number] [address] [place] [phone] Mar, Generalized anxiety disorder F41.1 and Major depressive disorder, recurrent episode with anxious distress F33.9 [place] [address] [id number] Mar, [place] [address] [phone] Mar, [place] [address] [id number] Mar, [place] [address] [address] Mar, Asthma J45.909 and Fibromyal elvira M79.7 [place] [address] [id number] Mar, Chronic kidney disease, 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 ; Vitamin D deficiency E55.9 and Essential (primary) hypertension I10 [place] [address] [id number] Feb, [place] [address] [address] Feb, Dysuria R30.0 ; Mixed stress and urge urinary incontinence N39.46 ; Fibromyalgia M79.7 and Chronic kidney disease, stage IV (severe) N18.4 [place] [address] [id number] Feb, Chronic kidney disease, 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 [place] [address] [id number] Feb, Chronic kidney disease, 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 [place] [address] [id number] Feb, [place] [address] [id number] Feb, Vitamin D deficiency, unspec ified E55.9 [place] [address] [id number] Jan, [facility] [place] [address] [id number] Jan, [facility] [place] [address] [place] [id number] [place] [phone] Dec, [place] [address] [address] Dec, Chronic kidney disease, 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 [place] [address] [address] Dec, Dysthymic disorder F34.1 and Generalized anxiety disorder F41.1 [place] [address] [address] Dec, [place] [address] [address] Dec, [place] [address] [address] Dec, Dysthymic disorder F34.1 and Generalized anxiety disorder F41.1 [place] [address] [address] Dec, Dysuria R30.0 ; Chronic kidn ey disease, stage 4 (severe) N18.4 ; Hypertension I10 ; Dyspepsia R10.13 ; Yeast dermatitis B37.2 ; Palpitations R00.2 ; Hypothyroid E03.9 ; Functional diarrhea K59.1 and Other seasonal allergic rhinitis J30.2 [facility] [address] [address] Dec, [facility] [address] Nov, Dysuria R30.0 and Stress inc ontinence N39.3 [place] [address] [address] Nov, [facility] [place] [address] [place] [id number] [place] [phone] Nov, [facility] [place] [address] [place] [id number] [place] [phone] Nov, Osteoarthritis of knees, jose ateral M17.0 [facility] [place] [address] [place] [id number] [place] [phone] Nov, Dysthymic disorder F34.1 and Generalized anxiety disorder F41.1 [place] [address] [address] [place] [id number] [place] [phone] Nov, [place] [address] [address] [place] [id number] [place] [phone] Nov, [place] [address] [address] Nov, Urgency of urination R39.15 [place] [address] [address] Nov, [place] [address] [address] Nov, Chronic kidney disease, 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 [place] [address] [address] Oct, Hypertension I10 ; Coronary artery disease involving ewiiaapaayp coronary artery of [place]wi[place] heart, angina presence unspecified I25.10 ; Palpitations R00.2 ; Hypothyroid E03.9 ; Right foot pain M79.671 ; Functional diarrhea K59.1 and Other seasonal allergic rhinitis J30.2 [place] [address] [address] [place] [id number] [place] [id number] Oct, Dysthymic disorder F34.1 and Generalized anxiety disorder F41.1 [facility] [place] [address] [place] [id number] [place] [phone] Sep, [place] [address] [address] Sep, [place] [address] [address] Sep, [place] [address] [address] Sep, [address] [address] Sep, [place] [address] [address] [address] Sep, Dysthymic disorder F34.1 and Generalized anxiety disorder F41.[address] [address] 16 Sep, 2015 Asthma with acute exacerbati on in adult J45.901 ; Dysuria R30.0 ; Chronic kidney disease, stage 4 (severe) N18.4 and History of anemia Z86.[address] [address] Sep, Generalized anxiety disorder F41.1 and Dysthymic disorder F34.[address] [address] August, Screening breast examination Z12.39 and Acute recurrent maxillary sinusitis J01.[address] [address] August, Osteoarthritis of knees, jose ateral M17.[address] [address] August, Chronic kidney disease, 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 ; Acute non- recurrent maxillary sinusitis J01.00 ; Urinary problem R39.89 ; Bowel habit changes R19.4 ; Functional diarrhea K59.1 and History of colon polyps Z86.[address] [address] Jul, Dysthymic disorder F34.1 and Generalized anxiety disorder F41.1 [facility] [place] [address] [place] [address] Jul, [facility] [place] [address] [place] [id number] [place] [address] Jul, Dysthymic disorder F34.1 ; G eneralized anxiety disorder F41.1 and MCC use of drug Z79.899 [facility] [place] [address] [place] [address] Jul, [facility] [place] [address] [address] Jun, [facility] [place] [address] [place] [id number] [place] [address] Jun, [place] [address] [address] May, [facility] [place] [address] [address] May, Dysthymic disorder F34.1 and Generalized anxiety disorder F41.1 [facility] [place] [address] [place] [address] Apr, Kidney disease N28.9 [place] [address] [address] Apr, Generalized anxiety disorder F41.1 and Dysthymic disorder F34.1 [facility] [place] [address] [place] [address] Apr, Chronic kidney disease, 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 [facility] [place] [address] [place] [id number] [place] [address] Apr, Generalized anxiety disorder F41.1 ; Major depression, recurrent F33.9 and Sleep disturbance G47.9 [facility] [place] [address] [place] [id number] [place] [address] Mar, Generalized anxiety disorder F41.1 and Dysthymic disorder F34.1 [facility] [place] [address] [id number] [place] [address] Mar, Generalized anxiety disorder F41.1 ; Dysthymic disorder F34.1 and Insomnia G47.00 [facility] [place] [address] [place] [place] [id number] [place] [address] Mar, [facility] [place] [address] [address] Mar, [facility] [place] [address] [address] Mar, Osteoarthritis of knees, jose ateral M17.0 [facility] [place] [address] [place] [id number] [place] [address] Mar, Hypertension I10 ; Hypothyro id E03.9 ; Dysthymic disorder F34.1 ; Chronic kidney disease, stage 4 (severe) N18.4 and Nausea & vomiting R11.2 [facility] [place] [address] [address] Mar, Generalized anxiety disorder F41.1 ; Dysthymic disorder F34.1 and Insomnia G47.00 [facility] [place] [address] [address] Mar, Dehydration E86.0 ; Chronic kidney disease, stage 4 (severe) N18.4 and Nausea & vomiting R11.2 [facility] [address] [facility] [id number] [address] [place] [address] Mar, Gastroenteritis K52.9 [facility] [place] [address] [place] [id number] [place] [address] Mar, [facility] [place] [address] [place] [place] [id number] [place] [address] Mar, [facility] [place] [address] [address] Feb, Dysthymic disorder F34.1 and Generalized anxiety disorder F41.1 [place] [address] [address] Jan, UTI (urinary tract infection ) N39.0 ; Asthma J45.909 ; Coronary artery disease involving ewiiaapaayp coronary artery of ewiiaapaayp heart, angina presence unspecified I25.10 ; Hypertension I10 ; Hypothyroid E03.9 ; Vitamin D deficiency E55.9 ; Insomnia G47.00 ; Palpitations R00.2 ; Depressed F32.9 ; Restless leg G25.81 and Anxiety F41.9 [place] [address] [address] Jan, Dysthymic disorder F34.1 and Generalized anxiety disorder F41.1 [place] [address] [address] Jan, [place] [address] [address] Dec, [place] [address] [address] Dec, Alkalosis 276.3 ; Chronic ki dney disease, Stage IV (severe) 585.4 ; Hyperpotassemia 276.7 ; Secondary hyperparathyroidism, renal 588.81 ; Proteinuria 791.0 ; Unspecified vitamin D deficiency 268.9 ; Anemia in chronic kidney disease 285.21 ; Other and unspecified hyperlipidemia 272.4 ; Hypertension, essential, benign 401.1 and Chronic kidney disease (CKD), stage III (moderate) 585.3 [place] [address] [place] [id number] [place] [address] Dec, [place] [address] [address] Dec, Depressive disorder, not els ewhere classified 311 and Generalized anxiety disorder 300.02 [place] [address] [address] Dec, [facility] [place] [address] [place] [id number] [place] [address] Dec, [place] [address] [place] [id number] [place] [address] Nov, Depressive disorder, not els ewhere classified 311 and Generalized anxiety disorder 300.02 [facility] [place] [address] [address] Nov, Arthritis of both knees 716. 96 [facility] [place] [address] [address] Nov, PAF (paroxysmal atrial fibri llation) 427.31 ; CAD (coronary artery disease) 414.00 ; Chest pain 786.50 and Chronic kidney disease (CKD) stage G4/A1, severely decreased glomerular filtration rate (GFR) between 15-29 mL/min/1.73 square meter and albuminuria creatinine ratio less than 30 mg/g 585.4 [place] [address] [address] Oct, Coronary atherosclerosis of unspecified type of vessel, ewiiaapaayp or graft 414.00 ; Chronic kidney disease, Stage IV (severe) 585.4 ; Hypertension 401.9 and Edema 782.3 [place] [address] [address] Oct, Depressive disorder, not els ewhere classified 311 and Generalized anxiety disorder 300.02 [place] [address] [place] [id number] [place] [address] Oct, Depressive disorder, not els ewhere classified 311 and Generalized anxiety disorder 300.02 [place] [address] [place] [id number] [place] [address] Oct, [place] [address] [address] Oct, [facility] [place] [address] [place] [id number] [place] [address] Sep, [facility] [place] [address] [address] Sep, Chronic kidney disease, Stag e IV (severe) 585.4 [facility] [place] [address] [address] Sep, [facility] [place] [address] [address] Sep, Coronary atherosclerosis of unspecified type of vessel, ewiiaapaayp or graft 414.00 ; Hypertension 401.9 ; Edema 782.3 and Hypothyroidism 244.9 [place] [address] [address] Sep, Coronary atherosclerosis of unspecified type of vessel, ewiiaapaayp or graft 414.00 ; Hypertension 401.9 ; Fibromyalgia 729.1 ; Edema 782.3 ; Hypothyroidism 244.9 and Anemia 285.[address] [address] Sep, Anxiety disorder, unspecifie d 300.00 and Depressive disorder, not elsewhere classified 311 [facility] [place] [address] [address] Sep, [place] [address] [address] August, Generalized anxiety disorder 300.02 [place] [address] [address] August, Closed fracture of lateral m alleolus 824.2 [facility] [place] [address] [address] Jul, [facility] [place] [address] [address] Jul, [facility] [place] [address] [address] Jun, [facility] [place] [address] [address] Jun, [facility] [address] [id number] [address] [place] [address], [place] [address] 13 Jun, 2014 [facility] [address] [id number] [address] [place] [address], [place] [address] Jun, 2014 [facility] [address] [id number] [address] [place] [address], [place] [address] Jun, 2014 [facility] [address] [id number] [address] [place] [address], [place] [address] 02 Jun, 2014 [facility] [address] [id number] [address] [place] [address], [place] [address] May, 2014 [facility] [address] [id number] [address] [place] [address], [place] [address] 19 May, 2014 [facility] [address] [id number] [address] [place] [address], [place] [address] 18 May, 2014 [facility] [address] [id number] [address] [place] [address], [place] [address] 18 May, 2014 [facility] [address] [id number] [address] [place] [address], [place] [address] 16 May, 2014 [facility] [address] [id number] [address] [place] [address], [place] [address] 16 May, 2014 [facility] [address] [id number] [address] [place] [address], [place] [address] 13 May, 2014 [facility] [address] [id number] [address] [place] [address], [place] [address] 13 May, 2014 [facility] [address] [id number] [address] [place] [address], [place] [address] 10 May, 2014 [facility] [address] [id number] [address] [place] [address], [place] [address] 10 May, 2014 [facility] [address] [id number] [address] [place] [address], [place] [address] Apr, [facility] [address] [id number] [address] [place] [address], [place] [address] Apr, [facility] [address] [id number] [address] [place] [address], [place] [address] Mar, [facility] [address] [id number] [address] [place] [address], [place] [address] Mar, [facility] [address] [id number] [address] [place] [address], [place] [address] Mar, [facility] [address] [id number] [address] [place] [address], [place] [address] Mar, [facility] [address] [id number] [address] [place] [address], [place] [address] Mar, [facility] [address] [id number] [address] [place] [address], [place] [address] Mar, [facility] [address] [id number] [address] [place] [address], [place] [address] Mar, [facility] [address] [id number] [address] [place] [address], [place] [address] Feb, [facility] [address] [id number] [address] [place] [address], [place] [address] Feb, [facility] [address] [id number] [address] [place] [address], [place] [address] Feb, [facility] [address] [id number] [address] [place] [address], [place] [address] Jan, [facility] [address] [id number] [address] [place] [address], [place] [address] Jan, [facility] [address] [id number] [address] [place] [address], [place] [address] Jan, [facility] [address] [id number] [address] [place] [address], [place] [address] Jan, [facility] [address] [id number] [address] [place] [address], [place] [address] Jan, [facility] [address] [id number] [facility] [address] Jan, [facility] [address] [id number] [address] [place] [address], [place] [address] Jan, [facility] [address] [id number] [address] [place] [address], [place] [address] Jan, [facility] [address] [id number] [address] [place] [address], [place] [address] Jan, [facility] [address] [id number] [address] [place] [address], [place] [address] Jan, [facility] [address] [id number] [address] [place] [address], [place] [address] Nov, [facility] [address] [id number] [address] [place] [address], [place] [address] Nov, [facility] [address] [id number] [address] [place] [address], [place] [address] Nov, [facility] [address] [id number] [address] [place] [address], [place] [address] Oct, [facility] [address] [id number] [address] [place] [address], [place] [address] Oct, [facility] [address] [id number] [address] [place] [address], [place] [address] Oct, [facility] [address] [id number] [address] [place] [address], [place] [address] Oct, [facility] [address] [id number] [address] [place] [address], [place] [address] Oct, [facility] [address] [id number] [address] [place] [address], [place] [address] Oct, [facility] [address] [id number] [address] [place] [address], [place] [address] Oct, [facility] [address] [id number] [address] [place] [address], [place] [address] Oct, [facility] [address] [id number] [address] [place] [address], [place] [address] Oct, [facility] [address] [id number] [address] [place] [address], [place] [address] Sep, [facility] [address] [id number] [address] [place] [address], [place] [address] Sep, [facility] [address] [id number] [address] [place] [address], [place] [address] Sep, [facility] [address] [id number] [address] [place] [address], [place] [address] Sep, [facility] [address] [id number] [address] [place] [address], [place] [address] Sep, [facility] [address] [id number] [address] [place] [address], [place] [address] Sep, [facility] [address] [id number] [address] [place] [address], [place] [address] Sep, [facility] [address] [id number] [address] [place] [address], [place] [address] Sep, [facility] [address] [id number] [address] [place] [address], [place] [address] Sep, [facility] [address] [id number] [address] [place] [address], [place] [address] August, [facility] [address] [id number] [address] [place] [address], [place] [address] August, [facility] [address] [id number] [address] [place] [address], [place] [address] August, [facility] [address] [id number] [address] [place] [address], [place] [address] August, [facility] [address] [id number] [address] [place] [address], [place] [address] August, [facility] [address] [id number] [address] [place] [address], [place] [address] August, [facility] [address] [id number] [address] [place] [address], [place] [address] Jul, [facility] [address] [id number] [address] [place] [address], [place] [address] Jul, [facility] [address] [id number] [address] [place] [address], [place] [address] Jul, [facility] [address] [id number] [address] [place] [address], [place] [address] Jul, [facility] [address] [id number] [address] [place] [address], [place] [address] Jul, [facility] [address] [id number] [address] [place] [address], [place] [address] Jul, [facility] [address] [id number] [address] [place] [address], [place] [address] Jun, [facility] [address] [id number] [address] [place] [address], [place] [address] Jun, [facility] [address] [id number] [address] [place] [address], [place] [address] May, [facility] [address] [id number] [address] [place] [address], [place] [address] May, [facility] [address] [id number] [address] [place] [address], [place] [address] May, [facility] [address] [id number] [address] [place] [address], [place] [address] May, [facility] [address] [id number] [address] [place] [address], [place] [address] Apr, [facility] [address] [id number] [address] [place] [address], [place] [address] Apr, [facility] [address] [id number] [address] [place] [address], [place] [address] 18 Mar, 2013 [facility] [address] [id number] [address] [place] [address], [place] [address] 18 Mar, 2013 [facility] [address] [id number] [address] [place] [address], [place] [address] 17 Mar, 2013 [facility] [address] [id number] [address] [place] [address], [place] [address] 17 Mar, 2013 [facility] [address] [id number] [address] [place] [address], [place] [address] 05 Mar, 2013 [facility] [address] [id number] [address] [place] [address], [place] [address] 05 Mar, 2013 [facility] [address] [id number] [address] [place] [address], [place] [address] Feb, [facility] [address] [id number] [address] [place] [address], [place] [address] Feb, [facility] [address] [id number] [address] [place] [address] 14 Feb, 2013 [facility] [address] [id number] [address] [place] [address], [place] [address] 14 Feb, 2013 [facility] [address] [id number] [address] [place] [address] 05 Feb, 2013 [facility] [address] [id number] [address] [place] [id number] Feb, [facility] [address] [id number] [address] [place] [id number] 24 Jan, 2013 [facility] [address] [id number] [address] [place] [address], [place] [address] 24 Jan, 2013 [facility] [address] [id number] [address] [place] [id number] 10 Jan, 2013 [facility] [address] [id number] [address] [place] [id number] 10 Jan, 2013 [facility] [address] [id number] [address] [place] [address], [place] [address] 08 Jan, 2013 [facility] [address] [id number] [address] [place] [address], [place] [address] Jan, [facility] [address] [id number] [address] [place] [address], [place] [address] Dec, [facility] [address] [id number] [address] [place] [address], [place] [address] Dec, [facility] [address] [id number] [address] [place] [address], [place] [address] Nov, [facility] [address] [id number] [address] [place] [address], [place] [address] Nov, [facility] [address] [id number] [address] [place] [address], [place] [address] Oct, [facility] [address] [id number] [address] [place] [address], [place] [address] Oct, [facility] [address] [id number] [address] [place] [address], [place] [address] Oct, [facility] [address] [id number] [address] [place] [address], [place] [address] Oct, [facility] [address] [id number] [address] [place] [address], [place] [address] Oct, [facility] [address] [id number] [address] [place] [address], [place] [address] Oct, [facility] [address] [id number] [address] [place] [address], [place] [address] Sep, [facility] [address] [id number] [address] [place] [address], [place] [address] Sep, [facility] [address] [id number] [address] [place] [address], [place] [address] Sep, [facility] [address] [id number] [address] [place] [address], [place] [address] Sep, [facility] [address] [id number] [address] [place] [address], [place] [address] August, [facility] [address] [id number] [address] [place] [address], [place] [address] August, [facility] [address] [id number] [address] [place] [address], [place] [address] August, [facility] [address] [id number] [address] [place] [address], [place] [address] August, [facility] [address] [id number] [address] [place] [address], [place] [address] August, [facility] [address] [id number] [address] [place] [address], [place] [address] Jul, [facility] [address] [id number] [address] [place] [address], [place] [address] Jul, [facility] [address] [id number] [address] [place] [address], [place] [address] Jul, [facility] [address] [id number] [address] [place] [address], [place] [address] Jul, [facility] [address] [id number] [address] [place] [address], [place] [address] Jul, [facility] [address] [id number] [address] [place] [address], [place] [address] Jul, [facility] [address] [id number] [address] [place] [address], [place] [address] Jul, [facility] [address] [id number] [address] [place] [address], [place] [address] Jul, [facility] [address] [id number] [address] [place] [address], [place] [address] Jul, [facility] [address] [id number] [address] [place] [address], [place] [address] Jul, [facility] [address] [address] [id number] [place] [id number] Jun, [facility] [address] [id number] [address] [place] [address], [place] [address] Jun, [facility] [address] [id number] [address] [place] [address], [place] [address] Jun, [facility] [address] [id number] [address] [place] [address], [place] [address] Jun, [facility] [address] [id number] [address] [place] [address], [place] [address] Jun, [facility] [address] [id number] [address] [place] [address], [place] [address] May, [facility] [address] [id number] [address] [place] [address], [place] [address] May, [facility] [address] [id number] [address] [place] [address], [place] [address] May, [facility] [address] [id number] [address] [place] [address], [place] [address] Apr, [facility] [address] [id number] [address] [place] [address], [place] [address] Apr, [facility] [address] [id number] [address] [place] [address], [place] [address] Apr, [facility] [address] [id number] [address] [place] [address], [place] [address] Apr, [facility] [address] [id number] [address] [place] [address], [place] [address] Apr, [facility] [address] [id number] [address] [place] [address], [place] [address] Apr, [facility] [address] [id number] [address] [place] [address], [place] [address] Mar, [facility] [address] [id number] [address] [place] [address], [place] [address] Mar, [facility] [address] [id number] [address] [place] [address], [place] [address] Mar, [facility] [address] [id number] [address] [place] [address], [place] [address] Mar, [facility] [address] [id number] [address] [place] [address], [place] [address] Feb, [facility] [address] [id number] [address] [place] [address], [place] [address] Feb, [facility] [address] [id number] [address] [place] [address], [place] [address] Feb, [facility] [address] [id number] [address] [place] [address], [place] [address] Feb, [facility] [address] [id number] [address] [place] [address], [place] [address] Feb, [facility] [address] [id number] [address] [place] [address], [place] [address] Feb, [facility] [address] [id number] [address] [place] [address], [place] [address] Feb, [facility] [address] [id number] [address] [place] [address], [place] [address] Feb, [facility] [address] [id number] [address] [place] [address], [place] [address] Feb, [facility] [address] [id number] [address] [place] [address], [place] [address] Feb, [facility] [address] [id number] [address] [place] [address], [place] [address] Feb, [facility] [address] [id number] [address] [place] [address], [place] [address] Feb, [facility] [address] [id number] [address] [place] [address], [place] [address] Feb, [facility] [address] [id number] [address] [place] [address], [place] [address] Feb, [facility] [address] [id number] [address] [place] [address], [place] [address] Feb, [facility] [address] [id number] [address] [place] [address], [place] [address] Feb, [facility] [address] [id number] [address] [place] [address], [place] [address] Jan, [facility] [address] [id number] [address] [place] [address], [place] [address] Jan, [facility] [address] [id number] [address] [place] [address], [place] [address] Jan, [facility] [address] [id number] [address] [place] [address], [place] [address] Jan, [facility] [address] [id number] [address] [place] [address], [place] [address] 30 Jan, 2012 [facility] [address] [id number] [address] [place] [address] Jan, [facility] [address] [id number] [address] [place] [address] Jan, [facility] [address] [id number] [address] [place] [address] Jan, [facility] [address] [id number] [address] [place] [phone] 16 Jan, 2012 [facility] [address] [id number] [address] [place] [address] 15 Jan, 2012 [facility] [address] [id number] [address] [place] [id number] 15 Jan, 2012 [facility] [address] [id number] [address] [place] [address] Jan, [facility] [address] [id number] [address] [place] [address] 26 Dec, 2011 [facility] [address] [id number] [address] [place] [address] 26 Sep, 2011 [facility] [address] [id number] [address] [place] [address], [place] [address] 24 Sep, 2011 [facility] [address] [id number] [address] [place] [address], [place] [address] 23 Sep, 2011 [facility] [address] [id number] [address] [place] [address], [place] [address] 22 Sep, 2011 [facility] [address] [id number] [address] [place] [address], [place] [address] 21 Sep, 2011 [facility] [address] [id number] [address] [place] [address], [place] [address] 20 Sep, 2011 [facility] [address] [id number] [address] [place] [address], [place] [address] 20 Sep, 2011 [facility] [address] [id number] [address] [place] [address], [place] [address] 07 Sep, 2011 [facility] [address] [id number] [address] [place] [address], [place] [address] 06 Sep, 2011 [facility] [address] [id number] [address] [place] [address], [place] [address] 06 Sep, 2011 [facility] [address] [id number] [address] [place] [address], [place] [address] 05 Sep, 2011 [facility] [address] [id number] [address] [place] [address], [place] [address] 23 Nov, 2011 [facility] [address] [id number] [address] [place] [address], [place] [address] 17 Nov, 2011 [facility] [address] [id number] [address] [place] [address], [place] [address] 13 Nov, 2011 [facility] [address] [id number] [address] [place] [address], [place] [address] 10 Nov, 2011 [facility] [address] [id number] [address] [place] [address], [place] [address] 08 Nov, 2011 [facility] [address] [id number] [address] [place] [address], [place] [address] Nov, [facility] [address] [id number] [address] [place] [address], [place] [address] Nov, [facility] [address] [id number] [address] [place] [address], [place] [address] Nov, [facility] [address] [id number] [address] [place] [address], [place] [address] Oct, [facility] [address] [id number] [address] [place] [address], [place] [address] Oct, [facility] [address] [id number] [address] [place] [address], [place] [address] Oct, [facility] [address] [id number] [address] [place] [address], [place] [address] Oct, [facility] [address] [id number] [address] [place] [address], [place] [address] Oct, [facility] [address] [id number] [address] [place] [address], [place] [address] Oct, [facility] [address] [id number] [address] [place] [address], [place] [address] Oct, [facility] [address] [id number] [address] [place] [address], [place] [address] Sep, [facility] [address] [id number] [address] [place] [address], [place] [address] Sep, [facility] [address] [id number] [address] [place] [address], [place] [address] August, [facility] [address] [id number] [address] [place] [address], [place] [address] August, [facility] [address] [id number] [address] [place] [address], [place] [address] August, [facility] [address] [id number] [address] [place] [address], [place] [address] August, [facility] [address] [id number] [address] [place] [address], [place] [address] Jul, [facility] [address] [id number] [address] [place] [address], [place] [address] Jul, [facility] [address] [id number] [address] [place] [address], [place] [address] Jul, [facility] [address] [id number] [address] [place] [address], [place] [address] Jul, [facility] [address] [id number] [address] [place] [address], [place] [address] Jul, [facility] [address] [id number] [address] [place] [address], [place] [address] Jul, [facility] [address] [id number] [address] [place] [address], [place] [address] Jul, [facility] [address] [id number] [address] [place] [address], [place] [address] Jul, [facility] [address] [id number] [address] [place] [address], [place] [address] Jul, [facility] [address] [id number] [address] [place] [address], [place] [address] Jun, [facility] [address] [id number] [address] [place] [address], [place] [address] 19 Jun, 2011 [facility] [address] [id number] [address] [place] [address], [place] [address] 15 Jun, 2011 [facility] [address] [id number] [address] [place] [address], [place] [address] 14 Jun, 2011 [facility] [address] [id number] [address] [place] [address], [place] [address] 12 Jun, 2011 [facility] [address] [id number] [address] [place] [address], [place] [address] 09 Jun, 2011 [facility] [address] [id number] [address] [place] [address], [place] [address] Jun, [facility] [address] [id number] [address] [place] [address], [place] [address] May, [facility] [address] [id number] [address] [place] [address], [place] [address] 24 May, 2011 [facility] [address] [id number] [address] [place] [address], [place] [address] May, [facility] [address] [id number] [address] [place] [address], [place] [address] May, [facility] [address] [id number] [address] [place] [address], [place] [address] May, [facility] [address] [id number] [address] [place] [address], [place] [address] Apr, [facility] [address] [id number] [address] [place] [address], [place] [address] Apr, [facility] [address] [id number] [address] [place] [address], [place] [address] Apr, [facility] [address] [id number] [address] [place] [address], [place] [address] Apr, [facility] [address] [id number] [address] [place] [address], [place] [address] Apr, [facility] [address] [id number] [address] [place] [address], [place] [address] Mar, [facility] [address] [id number] [address] [place] [address], [place] [address] Mar, [facility] [address] [id number] [address] [place] [address], [place] [address] Mar, [facility] [address] [id number] [address] [place] [address], [place] [address] Mar, [facility] [address] [id number] [address] [place] [address], [place] [address] Mar, [facility] [address] [id number] [address] [place] [address], [place] [address] Mar, [facility] [address] [id number] [address] [place] [address], [place] [address] Mar, [facility] [address] [id number] [address] [place] [address], [place] [address] Feb, [facility] [address] [id number] [address] [place] [address], [place] [address] Feb, [facility] [address] [id number] [address] [place] [address], [place] [address] Feb, [facility] [address] [id number] [address] [place] [address], [place] [address] Feb, [facility] [address] [id number] [address] [place] [address], [place] [address] Jan, [facility] [address] [id number] [address] [place] [address], [place] [address] Jan, [facility] [address] [id number] [address] [place] [address], [place] [address] Jan, [facility] [address] [id number] [address] [place] [address], [place] [address] Jan, [facility] [address] [id number] [address] [place] [address], [place] [address] Nov, [facility] [address] [id number] [address] [place] [address] Mar, [facility] [address] [id number] [address] [place] [address], [place] [address] Mar, [facility] [address] [id number] [address] [place] [address], [place] [address] Mar, [facility] [address] [id number] [address] [place] [address], [place] [address] Mar, [facility] [address] [id number] [address] [place] [address] Mar, [facility] [place] [address] [facility] [id number] [address] [place] [address] Mar, [facility] [place] [address] [facility] [id number] [address] [place] [phone] Feb, [facility] [place] [address] [facility] [id number] [address] [place] [address] Feb, [facility] [place] [address] [facility] [id number] [address] [place] [address] Jan, [facility] [place] [address] [facility] [id number] [address] [place] [address] Jan, [facility] [place] [address] [facility] [id number] [address] [place] [phone] Jan, IMMUNIZATIONS No Known Immunizations SOCIAL HISTORY [...] History CPAP Noncompliance_ Dr. Madden advises a Hireology driving. Medical History Bacterial meningitis 12/2016 Medical [...] surgery (summer) Surgical History Esophageal surgery-Dr. Cruz Surgical History Colonoscopy History of Polyp s No Polyps on 2015 scope due to have repeat 2020 09-2015 & 2007 Surgical History Bladder surgery [facility] 03/2016 Surgical History Neurotransmitter placed 10/2017 Surgical History retninal repair 12/31/2017 Surgical History cataract surgery 2018 Surgical History cataract surgery 2018 Surgical History SCS trial x7 days 2018 Surgical History SCS implant removed. 2018 Surgical History right shoulder surgery to repair torn te ndons 02/2019 Hospitalization History Surgeries Only Hospitalization History bacterial meningitis December 2016 Hospitalization History [facility] psych for SI 1988 Hospitalization History [facility]-Altered mental status 05/2017 Hospitalization History sepsis, UTI, headache 08/03/2018-
--- OUTSIDE RECORDS SUMMARY | 2019-08-01 09:55 | XMS REPORT ---
Author Author Jah Lola Doctor Organization [facility] Address Unknown Phone Unavailable Care Team Providers Care Housing Counselor Name Role Phone Migration, Doctor Unavailable Unavailable PROBLEMS Type Condition ICD9-CM Code AIE41-AH Code Onset Dates Condition S tatus SNOMED Code Problem Hypothyroid E03.9 Active 82423768 Problem Generalized anxiety disorder F41.1 A ctive 66735175 Problem Asthma J45.909 Active 514639850 Problem Insomnia G47.00 Active 364314194 Problem Mixed stress and urge urinary incontinence N39.46 Active 618033891 Problem Palpitations R00.2 Active 2731132 2 Problem Essential (primary) hypertension I10 Active 09455464 Problem Fibromyalgia M79.7 Active 9308514 05 Problem Body mass index (BMI) of 40.0-44.9 in adult Z68.41 Active 908973142 Problem Seasonal allergic rhinitis due to pollen J30.1 Active 16638614 Problem Restless leg syndrome G25.81 Active 81365829 Problem Hypercholesterolemia E78.00 Active 96233397 Problem Stage 3 chronic kidney disease N18.3 Active 159400941 Problem Hypertensive heart and chron ic kidney disease with heart failure and stage 1 through stage 4 chronic kidney disease, or unspecified chronic kidney disease I13.0 Active 63657278 Problem Primary osteoarthritis of left knee M17.12 Active 915080840 Problem Low back pain M54.5 Active 805124 009 Problem Chronic pain syndrome G89.4 Active 209817353 Problem Perimenopausal vasomotor symptoms N95.1 Active 667860663 Problem Major depressive disorder, recurrent, moderate F33 .1 Active 910353674 Problem 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 Active [id number] ALLERGIES No Information ENCOUNTERS Encounter Location Date Diagnosis [facility], [place] [address] [facility] [id number] [address] [place] [id number] August, [facility], [place] [address] [facility] [id number] [address] [place] [address] Jul, [place] [id number] [place] [address] Jun, [place] [address] [address] Jun, Fibromyalgia M79.7 ; Stage 3 chronic kidney disease N18.3 ; Essential (primary) hypertension I10 ; Hypertensive heart and chronic kidney disease with heart failure and stage 1 through stage 4 chronic kidney disease, or unspecified chronic kidney disease I13.0 and Lymphadenopathy R59.1 [place] [address] [address] Jun, Chronic pain syndrome G89.4 [place] [address] [address] May, Cystitis N30.90 [place] [address] [address] May, [place] [address] [address] May, [facility] [address] [address] May, Chronic pain syndrome G89.4 [place] [address] [address] May, Generalized anxiety disorder F41.1 and Major depressive disorder, recurrent episode with anxious distress F33.9 [place] [address] [address] Apr, Major depressive disorder, r ecurrent, moderate F33.1 ; Generalized anxiety disorder F41.1 and Dysthymic disorder F34.1 [place] [address] [place] [id number] [place] [address] Apr, Chronic pain syndrome G89.4 [place] [address] [address] Apr, Acute pain of right knee M25 .561 [facility], [place] [address] [facility] [id number] [address] [place] [address] Apr, [facility], [place] [address] [place] [address] Mar, Major depressive disorder, r ecurrent, moderate F33.1 ; Generalized anxiety disorder F41.1 and Dysthymic disorder F34.1 [facility] [address] [place] [id number] [address] [place] [address] Mar, Fluid collection of middle e ar H65.90 and Dizziness R42 [place] [address] [address] Mar, [place] [address] [address] Mar, [place] [address] [address] Mar, Essential (primary) hyperten maria eugenia I10 ; Stage 3 chronic kidney disease N18.3 ; Hypercholesterolemia E78.00 ; Asthma J45.909 ; Recurrent UTI N39.0 ; Status post shoulder surgery Z98.890 and Encounter for immunization Z23 [place] [address] [place] [id number] [address] [place] [address] Mar, Chronic pain syndrome G89.4 [place] [address] [place] [id number] [address] [place] [address] Feb, [place] [address] [place] [id number] [address] [place] [address] Feb, [place] [address] [address] Feb, Oral thrush B37.0 and Sore t hroat J02.9 [place] [address] [place] [id number] [address] [place] [address] Feb, Chronic pain syndrome G89.4 [place] [address] [place] [id number] [place] [address] Jan, [place] [address] [facility] [id number] [address] [place] [address] 14 Jan, 2019 Chronic pain syndrome G89.4 [place] [address] [facility] [id number] [address] [place] [address] 02 Jan, 2019 Hypercholesterolemia E78.00 [place] [address] [address] Jan, [place] [address] [place] [address] Dec, Chronic kidney disease, 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 [place] [address] [place] [id number] [address] [place] [address] Dec, Major depressive disorder, r ecurrent, moderate F33.1 ; Generalized anxiety disorder F41.1 and Dysthymic disorder F34.1 [place] [address] [place] [address] Dec, Generalized anxiety disorder F41.1 and Major depressive disorder, recurrent episode with anxious distress F33.9 [place] [address] [place] [id number] [address] [place] [address] Dec, [place] [address] [place] [id number] [address] [place] [address] Dec, [place] [address] [place] [id number] [address] [place] [address] Dec, Encounter for immunization Z 23 [place] [address] [facility] [id number] [address] [place] [address] Dec, Diarrhea, unspecified type R 19.7 and Hemorrhoids, unspecified hemorrhoid type K64.9 [place] [address] [facility] [id number] [address] [place] [address] Dec, Encounter for Medicare annua wellness exam Z00.00 ; Chronic kidney disease, stage 4 (severe) N18.4 ; Encounter for immunization Z23 ; Major depressive disorder, recurrent, moderate F33.1 ; Atherosclerosis of [place] coronary artery of [place] heart with angina pectoris I25.119 ; Asthma J45.909 ; Hypothyroid E03.9 and Fibromyalgia M79.7 [facility], [place] [address] [facility] [id number] [address] [place] [address] Dec, Chronic pain syndrome G89.4 [place] [address] [facility] [id number] [address] [place] [address] Nov, Major depressive disorder, r ecurrent, moderate F33.1 ; Generalized anxiety disorder F41.1 and Dysthymic disorder F34.1 [place] [address] [facility] [id number] [address] [place] [address] Nov, [place] [address] [place] [id number] [place] [address] Nov, Chronic pain syndrome G89.4 [place] [address] [facility] [id number] [address] [place] [address] Nov, Restless leg syndrome G25.81 [place] [address] [place] [id number] [address] [place] [address] Nov, Pain in right shoulder M25.5 11 ; Restless leg syndrome G25.81 ; Other chronic pain G89.29 ; Screening for breast cancer Z12.39 ; Insomnia G47.00 and Morbid obesity E66.01 [place] [address] [facility] [id number] [address] [place] [address] Nov, [place] [address] [facility] [id number] [address] [place] [address] Oct, Major depressive disorder, r ecurrent, moderate F33.1 ; Generalized anxiety disorder F41.1 and Dysthymic disorder F34.1 [place] [address] [facility] [id number] [address] [place] [address] Oct, [place] [address] [facility] [id number] [address] [place] [address] Oct, Cellulitis of left lower ext remity L03.116 and Morbid obesity E66.01 [facility] [address] [id number] [address] [place] [address] Oct, [facility], [place] [address] [id number] [address] [place] [address] Oct, [facility], [place] [address] [id number] [address] [place] [address] Oct, Generalized anxiety disorder F41.1 and Major depressive disorder, recurrent episode with anxious distress F33.9 [facility] [address] [id number] [address] [place] [address] Oct, [facility], [place] [address] [id number] [address] [place] [address] Oct, Chronic pain syndrome G89.4 [facility], [place] [address] [id number] [address] [place] [address] Oct, Chronic pain syndrome G89.4 [facility] [address] [id number] [address] [place] [address] Oct, UTI symptoms R39.9 ; Acute c ystitis without hematuria N30.00 and Morbid obesity E66.01 [facility], [place] [address] [id number] [address] [place] [address] Oct, [facility], [place] [address] [id number] [address] [place] [address] Oct, Chronic pain syndrome G89.4 [facility], [place] [address] [id number] [address] [place] [address] Sep, [facility], [place] [address] [id number] [address] [place] [address] Sep, Generalized anxiety disorder F41.1 and Major depressive disorder, recurrent episode with anxious distress F33.9 [facility], [place] [address] [id number] [address] [place] [address] Sep, Chronic kidney disease, 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 [facility], [place] [address] [facility] [id number] [address] [place] [address] Sep, Fibromyalgia M79.7 and Chron ic pain syndrome G89.4 [facility], [place] [address] [facility] [id number] [address] [place] [address] Sep, [id number] [place] [address] Sep, Chronic pain syndrome G89.4 [facility], [place] [address] [facility] [id number] [address] [place] [address] Sep, [facility], [place] [address] [facility] [id number] [address] [place] [address] Sep, Chronic pain syndrome G89.4 ; Fibromyalgia M79.7 and Morbid obesity E66.01 [place] [id number] [facility] [id number] [address] [place] [address] August, Generalized anxiety disorder F41.1 and Major depressive disorder, recurrent episode with anxious distress F33.9 [facility], [place] [address] [facility] [id number] [address] [place] [address] August, Fibromyalgia M79.7 [facility], [place] [address] [facility] [id number] [address] [place] [address] August, Restless leg syndrome G25.81 ; Vitamin D deficiency E55.9 ; Urinary tract infection without hematuria, site unspecified N39.0 ; Pain in right shoulder M25.511 ; Other chronic pain G89.29 ; Biceps tendinitis on right M75.21 and Morbid obesity E66.01 [facility] [place] [address] [facility] [id number] [address] [place] [address] Jul, Urinary tract infection with out hematuria, site unspecified N39.0 and Morbid obesity E66.01 [facility], [place] [address] [facility] [id number] [address] [place] [address] Jul, [facility], [place] [address] [facility] [id number] [address] [place] [address] Jul, [facility], [place] [address] [facility] [id number] [address] [place] [address] Jul, Fibromyalgia M79.7 [facility], [place] [address] [facility] [id number] [address] [place] [address] Jul, Acute pain of right shoulder M25.511 [facility], [place] [address] [facility] [id number] [address] [place] [address] Jul, Acute pain of right shoulder M25.511 and Morbid obesity E66.01 [facility], [place] [address] [facility] [id number] [address] [place] [address] Jun, [place] [address] [place] [id number] [place] [address] Jun, Generalized anxiety disorder F41.1 and Major depressive disorder, recurrent episode with anxious distress F33.9 [facility], [place] [address] [place] [id number] [address] [place] [address] Jun, [facility], [place] [address] [place] [id number] [address] [place] [address] Jun, Fibromyalgia M79.7 [facility] [address] [place] [id number] [address] [place] [address] Jun, Acute pain of right shoulder M25.511 ; Acute pain of right hip M25.551 and Morbid obesity E66.01 [facility], [place] [address] [place] [id number] [address] [place] [address] May, Burning with urination R30.0 ; Vaginal discharge N89.8 ; Chronic kidney disease, stage 4 (severe) N18.4 ; Body mass index (BMI) of 40.0-44.9 in adult Z68.41 and Morbid obesity E66.01 [facility], [place] [address] [place] [id number] [address] [place] [phone] 07 May, 2018 Fibromyalgia M79.7 [facility], [place] [id number] [place] [address] May, Generalized anxiety disorder F41.1 and Major depressive disorder, recurrent episode with anxious distress F33.9 [facility], [place] [address] [id number] [address] [place] [address] Apr, [facility], [place] [address] [id number] [address] [place] [address] Apr, Fibromyalgia M79.7 [facility] [address] [id number] [address] [place] [address] Mar, Acute UTI N39.0 and Dysuria R30.0 [facility], [place] [address] [id number] [address] [place] [address] Mar, Fibromyalgia M79.7 [facility], [place] [address] [id number] [address] [place] [address] 15 Feb, 2018 [facility] [place] [address] [id number] [address] [place] [address] Feb, [facility], [place] [address] [id number] [address] [place] [address] Feb, [facility], [place] [address] [id number] [address] [place] [address] Feb, Fibromyalgia M79.7 [facility], [place] [address] [id number] [address] [place] [address] Feb, Complicated UTI (urinary tra ct infection) N39.0 [facility], [place] [address] [id number] [address] [place] [address] Feb, [facility], [place] [address] [id number] [address] [place] [address] Jan, Generalized anxiety disorder F41.1 and Major depressive disorder, recurrent episode with anxious distress F33.9 [facility] [address] [id number] [address] [place] [address] Jan, Acute conjunctivitis of left eye, unspecified acute conjunctivitis type H10.32 [facility] [place] [address] [id number] [address] [place] [address] Jan, [facility], [place] [address] [id number] [address] [place] [address] Jan, Acute non-recurrent maxillar y sinusitis J01.00 ; Dysuria R30.0 ; Perimenopausal vasomotor symptoms N95.1 and Fibromyalgia M79.7 [facility], [place] [address] [id number] [address] [place] [address] Dec, Vitamin D deficiency E55.9 [facility], [place] [address] [id number] [address] [place] [address] Dec, Vitamin D deficiency E55.9 [facility] [place] [address] [facility] [id number] [address] [place] [address] Dec, Vitamin D deficiency E55.9 [facility], [place] [address] [id number] [address] [place] [address] Dec, [facility], [place] [address] [id number] [address] [place] [address] Dec, Fibromyalgia M79.7 [facility] [place] [address] [facility] [id number] [address] [place] [address] Nov, [facility], [place] [address] [id number] [address] [place] [id number] Nov, [facility] [place] [address] [id number] [address] [place] [address] Nov, [facility] [place] [address] [id number] [address] [place] [address] Nov, Fibromyalgia M79.7 ; Vision changes H53.9 ; Chest wall pain R07.89 and Chronic pain syndrome G89.4 [facility] [place] [address] [id number] [address] [place] [address] Nov, [facility], [place] [address] [id number] [address] [place] [address] Nov, Rash of hands R21 [facility] [place] [address] [id number] [address] [place] [address] Nov, Generalized anxiety disorder F41.1 and Major depressive disorder, recurrent episode with anxious distress F33.9 [facility] [place] [address] [id number] [address] [place] [address] Nov, Fibromyalgia M79.7 [facility] [place] [address] [id number] [address] [place] [address] Nov, Complicated UTI (urinary tra ct infection) N39.0 [place] [address] [id number] [address] [place] [address] Oct, [place] [address] [id number] [address] [place] [address] Oct, Generalized anxiety disorder F41.1 and Major depressive disorder, recurrent episode with anxious distress F33.9 [facility] [place] [address] [id number] [address] [place] [address] Oct, [place] [address] [facility] [id number] [address] [place] [address] Oct, Fibromyalgia M79.7 [facility] [place] [address] [facility] [id number] [address] [place] [address] Sep, Restless leg syndrome G25.81 and Restless leg G25.81 [place] [address] [facility] [id number] [address] [place] [address] Sep, [place] [address] [facility] [id number] [address] [place] [address] Sep, Seasonal allergic rhinitis d ue to pollen J30.1 ; Screening for breast cancer Z12.31 ; Chest pain at rest R07.9 ; Restless leg syndrome G25.81 ; Essential (primary) hypertension I10 and Depressed F32.9 [facility] [place] [address] [facility] [id number] [address] [place] [address] August, Fibromyalgia M79.7 [facility] [place] [address] [facility] [id number] [address] [place] [address] August, [facility] [place] [address] [facility] [id number] [address] [place] [address] August, [facility] [place] [address] [facility] [id number] [address] [place] [address] August, Abnormal chest [address] R93.8 [facility] [place] [address] [facility] [id number] [address] [place] [address] August, Generalized anxiety disorder F41.1 and Major depressive disorder, recurrent episode with anxious distress F33.9 [place] [address] [facility] [id number] [address] [place] [address] August, Abnormal chest [address] R93.8 [place] [address] [facility] [id number] [address] [place] [address] Jul, [facility] [place] [address] [facility] [id number] [address] [place] [address] Jul, Chronic kidney disease, 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 [place] [address] [facility] [id number] [address] [place] [address] Jul, [place] [address] [facility] [id number] [address] [place] [address] Jul, Restless leg G25.81 ; Mixed stress and urge urinary incontinence N39.46 and Fibromyalgia M79.7 [facility] [place] [address] [facility] [id number] [address] [place] [address] Jul, Chronic kidney disease, 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 [place] [address] [address] [facility] [id number] [address] [place] [phone] Jun, Orthostatic hypotension I95. 1 ; Chronic kidney disease, stage 4 (severe) N18.4 ; Chest wall discomfort R07.89 and Body mass index (BMI) of 40.0- 44.9 in adult Z68.41 [facility], [place] [address] [facility] [id number] [address] [place] [phone] Jun, [facility], [place] [address] [facility] [id number] [address] [place] [phone] Jun, Orthostatic hypotension I95. 1 [facility], [place] [address] [facility] [id number] [address] [place] [id number] Jun, [facility] [address] [facility] [id number] [address] [place] [phone] Jun, Orthostatic hypotension I95. 1 ; Dysuria R30.0 and Acute cystitis without hematuria N30.00 [facility], [place] [address] [facility] [id number] [address] [place] [phone] Jun, [facility], [place] [address] [facility] [id number] [address] [place] [phone] Jun, Chronic kidney disease, 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 [facility], [place] [address] [facility] [id number] [address] [place] [phone] Jun, Fibromyalgia M79.7 [facility], [place] [address] [facility] [id number] [address] [place] [phone] Jun, [facility], [place] [address] [facility] [id number] [address] [place] [phone] Jun, [facility], [place] [address] [facility] [id number] [address] [place] [phone] May, Ab[address] chest [address] R93.8 and Stage 3 chronic kidney disease N18.3 [facility], [place] [address] [facility] [id number] [address] [place] [phone] May, Chronic kidney disease, 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 [facility] [place] [address] [facility] [id number] [address] [place] [address] May, Chronic kidney disease, 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 [facility], [place] [address] [id number] [address] [place] [address] May, [address] R93.8 [facility], [place] [address] [id number] [address] [place] [phone] May, [facility], [place] [address] [id number] [address] [place] [address] May, [facility], [place] [address] [id number] [address] [place] [address] May, Generalized anxiety disorder F41.1 and Major depressive disorder, recurrent episode with anxious distress F33.9 [facility], [place] [address] [id number] [address] [place] [address] May, Mood disorder F39 [facility] [place] [address] [id number] [address] [place] [address] Apr, [facility], [place] [address] [id number] [address] [place] [address] Apr, Infected skin lesion L08.9 a nd Muscle strain of right shoulder region, initial encounter S46.911A [facility], [place] [address] [id number] [address] [place] [address] Apr, Generalized anxiety disorder F41.1 and Major depressive disorder, recurrent episode with anxious distress F33.9 [facility] [place] [address] [id number] [address] [place] [address] Apr, [facility] [place] [address] [id number] [address] [place] [address] Apr, Recent urinary tract infecti on Z87.440 and Hypothyroid E03.9 [facility], [place] [address] [id number] [address] [place] [address] Apr, Generalized anxiety disorder F41.1 and Major depressive disorder, recurrent episode with anxious distress F33.9 [facility] [place] [address] [id number] [address] [place] [address] Apr, Recent urinary tract infecti on Z87.440 [facility], [place] [address] [facility] [id number] [address] [place] [id number] 28 Mar, 2017 [facility] [address] [facility] [id number] [address] [place] [address] Mar, Dysuria R30.0 ; Acute cystit is without hematuria N30.00 and BMI 40.0-44.9, adult Z68.41 [place] [address] [facility] [id number] [address] [place] [address] Mar, [place] [address] [facility] [id number] [address] [place] [address] Mar, [place] [address] [facility] [id number] [address] [place] [address] Mar, Generalized anxiety disorder F41.1 and Major depressive disorder, recurrent episode with anxious distress F33.9 [place] [address] [place] [id number] [address] [place] [address] Feb, Conjunctivitis, bacterial H1 0.9 [place] [address] [facility] [id number] [address] [place] [phone] Feb, [facility] [place] [address] [facility] [id number] [address] [place] [address] Feb, Conjunctivitis, bacterial H1 0.9 [place] [address] [facility] [id number] [address] [place] [address] Feb, [facility] [address] [facility] [id number] [address] [place] [id number] 10 Feb, 2017 Dysuria R30.0 ; Acute cystit is N30.00 and BMI 40.0-44.9, adult Z68.41 [place] [address] [facility] [id number] [address] [place] [phone] 08 Feb, 2017 [place] [address] [place] [id number] [address] [place] [phone] Feb, Generalized anxiety disorder F41.1 and Major depressive disorder, recurrent episode with anxious distress F33.9 [facility] [place] [address] [facility] [id number] [address] [place] [address] Feb, Mood disorder F39 and BMI 40 .0-44.9, adult Z68.41 [facility], [place] [address] [id number] [address] [place] [address] Jan, [place] [address] [facility] [id number] [address] [place] [address] Jan, [place] [address] [id number] [address] [place] [address] Jan, Hypothyroid E03.9 [place] [address] [facility] [id number] [address] [place] [address] Jan, [place] [address] [facility] [id number] [address] [place] [address] Jan, Chronic kidney disease, unsp ecified N18.9 ; Hypokalemia E87.6 ; Essential (primary) hypertension I10 ; Fibromyalgia M79.7 ; Coronary artery disease involving [place] coronary artery of [place] heart, angina presence unspecified I25.10 ; Hypothyroid E03.9 and Encounter for immunization Z23 [place] [address] [facility] [id number] [address] [place] [address] Jan, Hypothyroid E03.9 [place] [address] [facility] [id number] [address] [place] [address] Jan, [place] [address] [facility] [id number] [address] [place] [address] Dec, Vitamin D deficiency E55.9 [facility], [place] [address] [facility] [id number] [address] [place] [address] Dec, Primary osteoarthritis of le ft knee M17.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 [facility], [place] [address] [facility] [id number] [address] [place] [address] Dec, Fibromyalgia M79.7 [place] [address] [id number] [address] [place] [phone] 18 Sep, 2017 Mood disorder F39 [facility], [place] [address] [id number] [address] [place] [phone] 13 Dec, 2017 [facility], [place] [address] [id number] [address] [place] [phone] 2017 Generalized anxiety disorder F41.1 and Major depressive disorder, recurrent episode with anxious distress F33.9 [facility] [place] [address] [id number] [address] [place] [id number] 11 Sep, 2016 [facility], [place] [address] [id number] [address] [place] [id number] 08 Dec, 2016 Streptococcal meningitis G00 .2 [facility], [place] [address] [id number] [address] [place] [phone] 07 Dec, 2016 Streptococcal meningitis G00 .2 [facility], [place] [address] [id number] [address] [place] [phone] 07 Dec, 2016 [facility], [place] [address] [id number] [address] [place] [phone] 06 Dec, 2016 Streptococcal meningitis G00 .2 [facility], [place] [address] [id number] [address] [place] [phone] 06 Dec, 2017 [facility] [place] [address] [id number] [address] [place] [phone] 06 Dec, 2016 Major depressive disorder, r ecurrent episode with anxious distress F33.9 [facility], [place] [address] [id number] [address] [place] [phone] 29 Nov, 2016 Fever, unspecified fever cau se R50.9 [facility], [place] [address] [id number] [address] [place] [id number] 24 Nov, 2016 [facility], [place] [address] [id number] [address] [place] [phone] 16 Nov, 2016 Hypothyroid E03.9 [facility], [place] [address] [id number] [address] [place] [address] Nov, Generalized anxiety disorder F41.1 and Major depressive disorder, recurrent episode with anxious distress F33.9 [facility], [place] [address] [id number] [address] [place] [phone] Nov, [facility] [address] [id number] [address] [place] [id number] Oct, Dental examination Z01.20 [facility], [place] [address] [id number] [address] [place] [address] Oct, Generalized anxiety disorder F41.1 and Major depressive disorder, recurrent episode with anxious distress F33.9 [facility], [place] [address] [facility] [id number] [address] [place] [id number] Oct, Chronic kidney disease, 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 [facility], [place] [address] [facility] [id number] [address] [place] [phone] Oct, [facility] [place] [address] [facility] [id number] [address] [place] [address] Oct, Fibromyalgia M79.7 [facility], [place] [address] [facility] [id number] [address] [place] [address] Oct, [facility] [place] [address] [facility] [id number] [address] [place] [phone] Oct, Generalized anxiety disorder F41.1 ; Major depressive disorder, recurrent episode with anxious distress F33.9 and Bipolar disorder, current episode manic without psychotic features F31.10 [facility], [place] [address] [facility] [id number] [address] [place] [id number] Sep, [facility] [place] [address] [facility] [id number] [address] [place] [id number] Sep, [facility] [place] [address] [facility] [id number] [address] [place] [phone] Sep, Vitamin D deficiency E55.9 [facility], [place] [address] [facility] [id number] [address] [place] [address] Sep, Vitamin D deficiency E55.9 [place] [address] [facility] [id number] [address] [place] [address] Sep, [place] [address] [facility] [id number] [address] [place] [phone] Sep, Chronic kidney disease, 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 ; Hypothyroid E03.9 ; Restless leg G25.81 ; Fibromyalgia M79.7 ; Essential (primary) hypertension I10 ; Vitamin D deficiency E55.9 ; Dyspepsia R10.13 ; Anemia in chronic kidney disease D63.1 ; Chronic kidney disease, unspecified N18.9 ; Coronary artery disease involving [place] coronary artery of [place] heart, angina presence unspecified I25.10 ; Screening breast examination Z12.39 and Low back pain M54.5 [place] [address] [facility] [id number] [address] [place] [phone] August, Generalized anxiety disorder F41.1 and Major depressive disorder, recurrent episode with anxious distress F33.9 [place] [address] [facility] [id number] [address] [place] [address] August, Generalized anxiety disorder F41.1 and Major depressive disorder, recurrent episode with anxious distress F33.9 [place] [address] [facility] [id number] [address] [place] [address] August, Fibromyalgia M79.7 [place] [address] [facility] [id number] [address] [place] [address] Jul, Generalized anxiety disorder F41.1 and Major depressive disorder, recurrent episode with anxious distress F33.9 [place] [address] [facility] [id number] [address] [place] [phone] Jul, Fibromyalgia M79.7 [place] [address] [facility] [id number] [address] [place] [id number] Jul, Generalized anxiety disorder F41.1 [place] [address] [facility] [id number] [address] [place] [address] May, [place] [address] [place] [id number] [address] [place] [address] May, Hypothyroid E03.9 [place] [address] [place] [id number] [address] [place] [address] May, Chronic kidney disease, 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 ; Hypothyroid E03.9 ; Restless leg G25.81 ; Fibromyalgia M79.7 ; Essential (primary) hypertension I10 ; Vitamin D deficiency E55.9 ; Dyspepsia R10.13 ; Acute non-recurrent maxillary sinusitis J01.00 ; Anemia in chronic kidney disease D63.1 ; Chronic kidney disease, unspecified N18.9 and Coronary artery disease involving [place] coronary artery of [place] heart, angina presence unspecified I25.10 [place] [address] [place] [id number] [address] [place] [address] May, Vitamin D deficiency, unspec ified E55.9 [place] [address] [place] [id number] [address] [place] [address] May, Generalized anxiety disorder F41.1 and Major depressive disorder, recurrent episode with anxious distress F33.9 [place] [address] [place] [id number] [address] [place] [address] Apr, Pain in right knee M25.561 a nd Pain in left knee M25.562 [place] [id number] [place] [address] Apr, [place] [address] [place] [id number] [address] [place] [address] Apr, [place] [address] [place] [id number] [address] [place] [address] Apr, [place] [address] [place] [id number] [address] [place] [address] Mar, Generalized anxiety disorder F41.1 and Major depressive disorder, recurrent episode with anxious distress F33.9 [place] [address] [place] [id number] [address] [place] [address] Mar, Generalized anxiety disorder F41.1 and Major depressive disorder, recurrent episode with anxious distress F33.9 [place] [address] [facility] [id number] [address] [place] [address] Mar, [facility], [place] [address] [place] [id number] [address] [place] [address] Mar, [place] [address] [place] [id number] [place] [phone] Mar, [place] [address] [place] [id number] [place] [address] Mar, Asthma J45.909 and Fibromyal elvira M79.7 [place] [address] [place] [id number] [place] [phone] Mar, Chronic kidney disease, 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 ; Vitamin D deficiency E55.9 and Essential (primary) hypertension I10 [place] [address] [place] [id number] [address] [place] [address] Feb, [place] [address] [place] [id number] [place] [address] Feb, Dysuria R30.0 ; Mixed stress and urge urinary incontinence N39.46 ; Fibromyalgia M79.7 and Chronic kidney disease, stage IV (severe) N18.4 [place] [address] [place] [id number] [address] [place] [phone] Feb, Chronic kidney disease, 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 [place] [address] [place] [id number] [address] [place] [address] Feb, Chronic kidney disease, 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 [place] [address] [place] [id number] [address] [place] [address] Feb, [place] [address] [place] [id number] [address] [place] [address] Feb, Vitamin D deficiency, unspec ified E55.9 [place] [id number] [id number] Jan, [facility], [place] [address] [place] [id number] [place] [address] Jan, [place] [address] [address] Dec, [place] [address] [address] Dec, Chronic kidney disease, 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 [place] [address] [address] Dec, Dysthymic disorder F34.1 and Generalized anxiety disorder F41.1 [place] [address] [address] Dec, [place] [address] [address] Dec, [place] [address] [address] Dec, Dysthymic disorder F34.1 and Generalized anxiety disorder F41.1 [place] [address] [address] Dec, Dysuria R30.0 ; Chronic kidn ey disease, stage 4 (severe) N18.4 ; Hypertension I10 ; Dyspepsia R10.13 ; Yeast dermatitis B37.2 ; Palpitations R00.2 ; Hypothyroid E03.9 ; Functional diarrhea K59.1 and Other seasonal allergic rhinitis J30.2 [facility] [address] [place] [id number] [address] [place] [address] Dec, [facility] [address] [place] [id number] [place] [phone] Nov, Dysuria R30.0 and Stress inc ontinence N39.3 [facility] [place] [address] [address] Nov, [place] [address] [address] Nov, [place] [address] [address] Nov, Osteoarthritis of knees, jose ateral M17.0 [place] [address] [place] [id number] [place] [address] Nov, Dysthymic disorder F34.1 and Generalized anxiety disorder F41.1 [place] [address] [address] Nov, [place] [address] [address] Nov, [place] [address] [address] Nov, Urgency of urination R39.15 [place] [address] [address] Nov, [place] [address] [address] Nov, Chronic kidney disease, 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 [place] [address] [address] Oct, Hypertension I10 ; Coronary artery disease involving [place] coronary artery of [place] heart, angina presence unspecified I25.10 ; Palpitations R00.2 ; Hypothyroid E03.9 ; Right foot pain M79.671 ; Functional diarrhea K59.1 and Other seasonal allergic rhinitis J30.2 [place] [address] [place] [id number] [address] [place] [address] Oct, Dysthymic disorder F34.1 and Generalized anxiety disorder F41.1 [place] [address] [place] [id number] [address] [place] [address] Sep, [facility] [place] [address] [address] Sep, [facility] [place] [address] [place] [id number] [place] [phone] Sep, [place] [address] [address] Sep, [place] [address] [address] Sep, [place] [address] [address] Sep, Dysthymic disorder F34.1 and Generalized anxiety disorder F41.[address] [address] 16 Sep, 2015 Asthma with acute exacerbati on in adult J45.901 ; Dysuria R30.0 ; Chronic kidney disease, stage 4 (severe) N18.4 and History of anemia Z86.[address] [address] Sep, Generalized anxiety disorder F41.1 and Dysthymic disorder F34.[address] [address] August, Screening breast examination Z12.39 and Acute recurrent maxillary sinusitis J01.01 [place] [address] [address] August, Osteoarthritis of knees, jose ateral M17.[address] [address] August, Chronic kidney disease, 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 ; Acute non- recurrent maxillary sinusitis J01.00 ; Urinary problem R39.89 ; Bowel habit changes R19.4 ; Functional diarrhea K59.1 and History of colon polyps Z86.010 [facility] [place] [address] [facility] [id number] [address] [place] [address] 29 Jul, 2015 Dysthymic disorder F34.1 and Generalized anxiety disorder F41.1 [facility] [place] [address] [facility] [id number] [address] [place] [address] Jul, [facility] [place] [address] [facility] [id number] [address] [place] [address] Jul, Dysthymic disorder F34.1 ; G eneralized anxiety disorder F41.1 and 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 [facility] [place] [address] [facility] [id number] [address] [place] [address] Jul, [facility] [place] [address] [facility] [id number] [address] [place] [phone] Jun, [facility] [place] [address] [facility] [id number] [address] [place] [address] Jun, [facility] [place] [address] [facility] [id number] [address] [place] [address] May, [facility] [place] [address] [facility] [id number] [address] [place] [address] May, Dysthymic disorder F34.1 and Generalized anxiety disorder F41.1 [facility] [place] [address] [facility] [id number] [address] [place] [phone] Apr, Kidney disease N28.9 [facility] [place] [address] [facility] [id number] [address] [place] [address] Apr, Generalized anxiety disorder F41.1 and Dysthymic disorder F34.1 [facility] [place] [address] [facility] [id number] [address] [place] [address] Apr, Chronic kidney disease, 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 [facility] [place] [address] [facility] [id number] [address] [place] [address] Apr, Generalized anxiety disorder F41.1 ; Major depression, recurrent F33.9 and Sleep disturbance G47.9 [facility] [place] [id number] [place] [address] Mar, Generalized anxiety disorder F41.1 and Dysthymic disorder F34.1 [facility] [place] [address] [place] [id number] [address] [place] [address] Mar, Generalized anxiety disorder F41.1 ; Dysthymic disorder F34.1 and Insomnia G47.00 [facility], [place] [address] [address] Mar, [facility], [place] [address] [address] Mar, [facility], [place] [address] [address] Mar, Osteoarthritis of knees, jose ateral M17.0 [facility], [place] [address] [address] Mar, Hypertension I10 ; Hypothyro id E03.9 ; Dysthymic disorder F34.1 ; Chronic kidney disease, stage 4 (severe) N18.4 and Nausea & vomiting R11.2 [place] [address] [address] Mar, Generalized anxiety disorder F41.1 ; Dysthymic disorder F34.1 and Insomnia G47.00 [facility], [place] [address] [place] [id number] [place] [id number] Mar, Dehydration E86.0 ; Chronic kidney disease, stage 4 (severe) N18.4 and Nausea & vomiting R11.2 [facility] [address] [place] [id number] [place] [id number] Mar, Gastroenteritis K52.9 [facility], [place] [address] [place] [id number] [place] [id number] Mar, [facility], [place] [address] [address] Mar, [facility], [place] [address] [address] Feb, Dysthymic disorder F34.1 and Generalized anxiety disorder F41.1 [facility], [place] [address] [address] Jan, UTI (urinary tract infection ) N39.0 ; Asthma J45.909 ; Coronary artery disease involving [place] coronary artery of [place] heart, angina presence unspecified I25.10 ; Hypertension I10 ; Hypothyroid E03.9 ; Vitamin D deficiency E55.9 ; Insomnia G47.00 ; Palpitations R00.2 ; Depressed F32.9 ; Restless leg G25.81 and Anxiety F41.9 [place] [address] [address] Jan, Dysthymic disorder F34.1 and Generalized anxiety disorder F41.[address] [address] Jan, [place] [address] [address] Dec, [address] [address] Dec, Alkalosis 276.3 ; Chronic ki dney disease, Stage IV (severe) 585.4 ; Hyperpotassemia 276.7 ; Secondary hyperparathyroidism, renal 588.81 ; Proteinuria 791.0 ; Unspecified vitamin D deficiency 268.9 ; Anemia in chronic kidney disease 285.21 ; Other and unspecified hyperlipidemia 272.4 ; Hypertension, essential, benign 401.1 and Chronic kidney disease (CKD), stage III (moderate) 585.3 [place] [address] [address] Dec, [place] [address] [address] Dec, Depressive disorder, not els ewhere classified 311 and Generalized anxiety disorder 300.02 [facility] [place] [address] [facility] [id number] [address] [place] [id number] Dec, [facility] [place] [address] [place] [id number] [place] [id number] Dec, [facility] [place] [address] [place] [id number] [address] [place] [address] Nov, Depressive disorder, not els ewhere classified 311 and Generalized anxiety disorder 300.02 [facility] [place] [address] [place] [id number] [place] [address] Nov, Arthritis of both knees 716. 96 [place] [address] [address] Nov, PAF (paroxysmal atrial fibri llation) 427.31 ; CAD (coronary artery disease) 414.00 ; Chest pain 786.50 and Chronic kidney disease (CKD) stage G4/A1, severely decreased glomerular filtration rate (GFR) between 15-29 mL/min/1.73 square meter and albuminuria creatinine ratio less than 30 mg/g 585.4 [facility] [place] [address] [address] Oct, Coronary atherosclerosis of unspecified type of vessel, [place] or graft 414.00 ; Chronic kidney disease, Stage IV (severe) 585.4 ; Hypertension 401.9 and Edema 782.3 [facility] [place] [address] [place] [id number] [place] [address] Oct, Depressive disorder, not els ewhere classified 311 and Generalized anxiety disorder 300.02 [facility] [place] [address] [facility] [id number] [address] [place] [address] Oct, Depressive disorder, not els ewhere classified 311 and Generalized anxiety disorder 300.02 [facility] [place] [address] [place] [id number] [address] [place] [id number] Oct, [facility] [place] [address] [place] [id number] [address] [place] [address] Oct, [facility] [place] [address] [address] Sep, [place] [address] [address] Sep, Chronic kidney disease, Stag e IV (severe) 585.4 [place] [address] [address] Sep, [place] [address] [address] Sep, Coronary atherosclerosis of unspecified type of vessel, [place] or graft 414.00 ; Hypertension 401.9 ; Edema 782.3 and Hypothyroidism 244.[address] [address] Sep, Coronary atherosclerosis of unspecified type of vessel, [place] or graft 414.00 ; Hypertension 401.9 ; Fibromyalgia 729.1 ; Edema 782.3 ; Hypothyroidism 244.9 and Anemia 285.9 [place] [address] [address] Sep, Anxiety disorder, unspecifie d 300.00 and Depressive disorder, not elsewhere classified 311 [place] [address] [address] Sep, [place] [address] [address] August, Generalized anxiety disorder 300.02 [place] [address] [address] August, Closed fracture of lateral m alleolus 824.2 [place] [address] [address] Jul, [place] [address] [address] Jul, [place] [address] [address] Jun, [facility] [address] [id number] [address] [place] [address], [place] [address] Jun, 2014 [facility] [address] [id number] [address] [place] [address], [place] [address] Jun, 2014 [facility] [address] [id number] [address] [place] [address], [place] [id number] 13 Jun, 2014 [facility] [address] [id number] [address] [place] [address], [place] [id number] Jun, 2014 [facility] [address] [id number] [address] [place] [address], [place] [id number] Jun, 2014 [facility] [address] [id number] [address] [place] [address], [place] [id number] 19 May, 2014 [facility] [address] [id number] [address] [place] [address], [place] [id number] 19 May, 2014 [facility] [address] [id number] [address] [place] [address], [place] [id number] 18 May, 2014 [facility] [address] [id number] [address] [place] [address], [place] [id number] 18 May, 2014 [facility] [address] [id number] [address] [place] [address], [place] [id number] 16 May, 2014 [facility] [address] [id number] [address] [place] [address], [place] [id number] 16 May, 2014 [facility] [address] [id number] [address] [place] [address], [place] [id number] 13 May, 2014 [facility] [address] [id number] [address] [place] [address], [place] [address] 13 May, 2014 [facility] [address] [id number] [address] [place] [address], [place] [id number] 10 May, 2014 [facility] [address] [id number] [address] [place] [address], [place] [id number] 10 May, 2014 [facility] [address] [id number] [address] [place] [address], [place] [address] Apr, [facility] [address] [id number] [address] [place] [address], [place] [address] Apr, [facility] [address] [id number] [address] [place] [address], [place] [id number] Mar, [facility] [address] [id number] [address] [place] [address], [place] [id number] Mar, [facility] [address] [id number] [address] [place] [address], [place] [id number] Mar, [facility] [address] [id number] [address] [place] [address], [place] [id number] Mar, [facility] [address] [id number] [address] [place] [address], [place] [id number] Mar, [facility] [address] [id number] [address] [place] [address], [place] [id number] Mar, [facility] [address] [id number] [address] [place] [address], [place] [id number] Mar, [facility] [address] [id number] [address] [place] [address], [place] [id number] Feb, [facility] [address] [id number] [address] [place] [address], [place] [id number] Feb, [facility] [address] [id number] [address] [place] [address], [place] [address] Feb, [facility] [address] [id number] [address] [place] [address], [place] [address] Jan, [facility] [address] [id number] [address] [place] [address], [place] [address] Jan, [facility] [address] [id number] [address] [place] [address], [place] [address] Jan, [facility] [address] [id number] [address] [place] [address], [place] [address] Jan, [facility] [address] [id number] [address] [place] [address], [place] [id number] Jan, [facility] [address] [id number] [address] [place] [address], [place] [address] Jan, [facility] [address] [id number] [address] [place] [address], [place] [address] Jan, [facility] [address] [id number] [address] [place] [address], [place] [address] Jan, [facility] [address] [id number] [address] [place] [address], [place] [address] Jan, [facility] [address] [id number] [address] [place] [address], [place] [address] Jan, [facility] [address] [id number] [address] [place] [address], [place] [address] Nov, [facility] [address] [id number] [address] [place] [address], [place] [id number] Nov, [facility] [address] [id number] [address] [place] [address], [place] [address] Nov, [facility] [address] [id number] [address] [place] [address], [place] [address] Oct, [facility] [address] [id number] [address] [place] [address], [place] [address] Oct, [facility] [address] [id number] [address] [place] [address], [place] [address] Oct, [facility] [address] [id number] [address] [place] [address], [place] [address] Oct, [facility] [address] [id number] [address] [place] [address], [place] [id number] Oct, [facility] [address] [id number] [address] [place] [address], [place] [id number] Oct, [facility] [address] [id number] [address] [place] [address], [place] [id number] Oct, [facility] [address] [id number] [address] [place] [address], [place] [address] Oct, [facility] [address] [id number] [address] [place] [address], [place] [address] Oct, [facility] [address] [id number] [address] [place] [address], [place] [address] Sep, [facility] [address] [id number] [address] [place] [address], [place] [id number] Sep, [facility] [address] [id number] [address] [place] [address], [place] [address] Sep, [facility] [address] [id number] [address] [place] [address], [place] [address] Sep, [facility] [address] [id number] [address] [place] [address], [place] [address] Sep, [facility] [address] [id number] [address] [place] [address], [place] [address] Sep, [facility] [address] [id number] [address] [place] [address], [place] [address] Sep, [facility] [address] [id number] [address] [place] [address], [place] [address] Sep, [facility] [address] [id number] [address] [place] [address], [place] [id number] Sep, [facility] [address] [id number] [address] [place] [address], [place] [address] August, [facility] [address] [id number] [address] [place] [address], [place] [address] August, [facility] [address] [id number] [address] [place] [address], [place] [address] August, [facility] [address] [id number] [address] [place] [address], [place] [address] August, [facility] [address] [id number] [address] [place] [address], [place] [address] August, [facility] [place] [address] [id number] [address] [place] [address], [place] [address] August, [facility] [address] [id number] [address] [place] [address], [place] [address] Jul, [facility] [address] [id number] [address] [place] [address], [place] [address] Jul, [facility] [address] [id number] [address] [place] [address], [place] [address] Jul, [facility] [address] [id number] [address] [place] [address], [place] [address] Jul, [facility] [address] [id number] [address] [place] [address], [place] [address] Jul, [facility] [address] [id number] [address] [place] [address], [place] [id number] Jul, [facility] [address] [id number] [address] [place] [address], [place] [address] Jun, [facility] [address] [id number] [address] [place] [address], [place] [address] Jun, [facility] [address] [id number] [address] [place] [address], [place] [address] May, [facility] [address] [id number] [address] [place] [address], [place] [address] May, [facility] [address] [id number] [address] [place] [address], [place] [address] May, [facility] [address] [id number] [address] [place] [address], [place] [address] May, [facility] [address] [id number] [address] [place] [address], [place] [address] Apr, [facility] [address] [id number] [address] [place] [address], [place] [address] Apr, [facility] [address] [id number] [address] [place] [address], [place] [address] 18 Mar, 2013 [facility] [address] [id number] [address] [place] [address], [place] [address] 18 Mar, 2013 [facility] [address] [id number] [address] [place] [address], [place] [address] Mar, [facility] [address] [id number] [address] [place] [address], [place] [address] Mar, [facility] [address] [id number] [address] [place] [address], [place] [address] Mar, [facility] [address] [id number] [address] [place] [address], [place] [address] Mar, [facility] [address] [id number] [address] [place] [address], [place] [address] Feb, [facility] [address] [id number] [address] [place] [address], [place] [id number] Feb, [facility] [address] [id number] [address] [place] [address], [place] [address] Feb, [facility] [address] [id number] [address] [place] [id number] Feb, [facility] [address] [id number] [address] [place] [id number] Feb, [facility] [address] [id number] [address] [place] [id number] 05 Feb, 2013 [facility] [address] [id number] [address] [place] [address], [place] [address] 24 Jan, 2013 [facility] [address] [id number] [address] [place] [id number] 24 Jan, 2013 [facility] [address] [id number] [address] [place] [id number] Jan, [facility] [address] [id number] [address] [place] [address], [place] [address] Jan, [facility] [address] [id number] [address] [place] [address], [place] [address] Jan, [facility] [address] [id number] [address] [place] [address], [place] [address] Jan, [facility] [address] [id number] [address] [place] [address], [place] [address] Dec, [facility] [address] [id number] [address] [place] [address], [place] [address] Dec, [facility] [address] [id number] [address] [place] [address], [place] [address] Nov, [facility] [address] [id number] [address] [place] [address], [place] [address] Nov, [facility] [address] [id number] [address] [place] [address], [place] [address] Oct, [facility] [address] [id number] [address] [place] [address], [place] [address] Oct, [facility] [address] [id number] [address] [place] [address], [place] [address] Oct, [facility] [address] [id number] [address] [place] [address], [place] [address] Oct, [facility] [address] [id number] [address] [place] [address], [place] [address] Oct, [facility] [address] [id number] [address] [place] [address], [place] [address] Oct, [facility] [address] [id number] [address] [place] [address], [place] [address] Sep, [facility] [address] [id number] [address] [place] [address], [place] [address] Sep, [facility] [address] [id number] [address] [place] [address], [place] [address] Sep, [facility] [address] [id number] [address] [place] [address], [place] [address] Sep, [facility] [place] [address] [id number] [address] [place] [address], [place] [address] August, [facility] [address] [id number] [address] [place] [address], [place] [address] August, [facility] [place] [address] [id number] [address] [place] [address], [place] [address] August, [facility] [address] [id number] [address] [place] [address], [place] [address] August, [facility] [place] [address] [id number] [address] [place] [address], [place] [address] August, [facility] [address] [id number] [address] [place] [address], [place] [address] Jul, [facility] [address] [id number] [address] [place] [address], [place] [address] Jul, [facility] [address] [id number] [address] [place] [address], [place] [address] Jul, [facility] [address] [id number] [address] [place] [address], [place] [address] Jul, [facility] [address] [id number] [address] [place] [address], [place] [address] Jul, [facility] [address] [id number] [address] [place] [address], [place] [id number] Jul, [facility] [address] [id number] [address] [place] [address], [place] [address] Jul, [facility] [address] [id number] [address] [place] [address], [place] [address] Jul, [facility] [address] [id number] [address] [place] [address], [place] [address] Jul, [facility] [address] [id number] [address] [place] [address], [place] [address] Jul, [facility] [address] [id number] [facility], Carolee S [id number] Jun, [facility] [address] [id number] [address] [place] [address], [place] [address] Jun, [facility] [address] [id number] [address] [place] [address], [place] [address] Jun, [facility] [address] [id number] [address] [place] [address], [place] [address] Jun, [facility] [address] [id number] [address] [place] [address], [place] [id number] Jun, [facility] [address] [id number] [address] [place] [address], [place] [id number] May, [facility] [address] [id number] [address] [place] [address], [place] [id number] May, [facility] [address] [id number] [address] [place] [address], [place] [id number] May, [facility] [address] [id number] [address] [place] [address], [place] [id number] Apr, [facility] [address] [id number] [address] [place] [address], [place] [id number] Apr, [facility] [address] [id number] [address] [place] [address], [place] [id number] Apr, [facility] [address] [id number] [address] [place] [address], [place] [id number] Apr, [facility] [address] [id number] [address] [place] [address], [place] [id number] Apr, [facility] [address] [id number] [address] [place] [address], [place] [id number] Apr, [facility] [address] [id number] [address] [place] [address], [place] [id number] Mar, [facility] [address] [id number] [address] [place] [address], [place] [id number] Mar, [facility] [address] [id number] [address] [place] [address], [place] [id number] Mar, [facility] [address] [id number] [address] [place] [address], [place] [id number] Mar, [facility] [address] [id number] [address] [place] [address], [place] [id number] Feb, [facility] [address] [id number] [address] [place] [address], [place] [id number] Feb, [facility] [address] [id number] [address] [place] [address], [place] [id number] Feb, [facility] [address] [id number] [address] [place] [address], [place] [id number] Feb, [facility] [address] [id number] [address] [place] [address], [place] [id number] Feb, [facility] [address] [id number] [address] [place] [address], [place] [id number] Feb, [facility] [address] [id number] [address] [place] [address], [place] [id number] Feb, [facility] [address] [id number] [address] [place] [address], [place] [id number] Feb, [facility] [address] [id number] [address] [place] [address], [place] [id number] Feb, [facility] [address] [id number] [address] [place] [address], [place] [id number] Feb, [facility] [address] [id number] [address] [place] [address], [place] [id number] Feb, [facility] [address] [id number] [address] [place] [address], [place] [id number] Feb, [facility] [address] [id number] [address] [place] [address], [place] [id number] Feb, [facility] [address] [id number] [address] [place] [address], [place] [id number] Feb, [facility] [address] [id number] [address] [place] [address], [place] [id number] Feb, [facility] [address] [id number] [address] [place] [address], [place] [id number] Feb, [facility] [address] [id number] [address] [place] [address], [place] [id number] Jan, [facility] [address] [id number] [address] [place] [address], [place] [id number] Jan, [facility] [address] [id number] [address] [place] [address], [place] [id number] Jan, [facility] [address] [id number] [address] [place] [address], [place] [id number] Jan, [facility] [address] [id number] [address] [place] [id number] Jan, [facility] [address] [id number] [address] [place] [id number] Jan, [facility] [address] [id number] [address] [place] [id number] Jan, [facility] [address] [id number] [address] [place] [id number] Jan, [facility] [address] [id number] [address] [place] [id number] Jan, [facility] [address] [id number] [address] [place] [id number] Jan, [facility] [facility] [address] [id number] [address] [place] [id number] Jan, [facility] [address] [id number] [address] [place] [id number] Jan, [facility] [address] [id number] [address] [place] [id number] 26 Sep, 2011 [facility] [address] [id number] [address] [place] [address], [place] [id number] 26 Sep, 2011 [facility] [address] [id number] [address] [place] [address], [place] [id number] 24 Sep, 2011 [facility] [address] [id number] [address] [place] [address], [place] [id number] 23 Sep, 2011 [facility] [address] [id number] [address] [place] [address], [place] [id number] 22 Sep, 2011 [facility] [address] [id number] [address] [place] [address], [place] [id number] 21 Sep, 2011 [facility] [address] [id number] [address] [place] [address], [place] [id number] 20 Sep, 2011 [facility] [address] [id number] [address] [place] [address], [place] [id number] 20 Sep, 2011 [facility] [address] [id number] [address] [place] [address], [place] [id number] 07 Sep, 2011 [facility] [address] [id number] [address] [place] [address], [place] [id number] 06 Sep, 2011 [facility] [address] [id number] [address] [place] [address], [place] [id number] 06 Sep, 2011 [facility] [address] [id number] [address] [place] [address], [place] [id number] 05 Sep, 2011 [facility] [address] [id number] [address] [place] [address], [place] [id number] 23 Nov, 2011 [facility] [address] [id number] [address] [place] [address], [place] [id number] 17 Nov, 2011 [facility] [address] [id number] [address] [place] [address], [place] [id number] 13 Nov, 2011 [facility] [address] [id number] [address] [place] [address], [place] [id number] 10 Nov, 2011 [facility] [address] [id number] [address] [place] [address], [place] [id number] Nov, [facility] [address] [id number] [address] [place] [address], [place] [id number] Nov, [facility] [address] [id number] [address] [place] [address], [place] [id number] Nov, [facility] [address] [id number] [address] [place] [address], [place] [id number] Nov, [facility] [address] [id number] [address] [place] [address], [place] [id number] Oct, [facility] [address] [id number] [address] [place] [address], [place] [id number] Oct, [facility] [address] [id number] [address] [place] [address], [place] [id number] Oct, [facility] [address] [id number] [address] [place] [address], [place] [id number] Oct, [facility] [address] [id number] [address] [place] [address], [place] [id number] Oct, [facility] [address] [id number] [address] [place] [address], [place] [id number] Oct, [facility] [address] [id number] [address] [place] [address], [place] [id number] Oct, [facility] [address] [id number] [address] [place] [address], [place] [id number] Sep, [facility] [address] [id number] [address] [place] [address], [place] [id number] Sep, [facility] [address] [id number] [address] [place] [address], [place] [id number] August, [facility] [address] [id number] [address] [place] [address], [place] [id number] August, [facility] [address] [id number] [address] [place] [address], [place] [id number] August, [facility] [address] [id number] [address] [place] [address], [place] [id number] August, [facility] [address] [id number] [address] [place] [address], [place] [id number] Jul, [facility] [address] [id number] [address] [place] [address], [place] [id number] Jul, [facility] [address] [id number] [address] [place] [address], [place] [id number] Jul, [facility] [address] [id number] [address] [place] [address], [place] [id number] Jul, [facility] [address] [id number] [address] [place] [address], [place] [id number] Jul, [facility] [address] [id number] [address] [place] [address], [place] [id number] Jul, [facility] [address] [id number] [address] [place] [address], [place] [id number] Jul, [facility] [address] [id number] [address] [place] [address], [place] [id number] Jul, [facility] [address] [id number] [address] [place] [address], [place] [id number] Jul, [facility] [address] [id number] [address] [place] [address], [place] [id number] 23 Jun, 2011 [facility] [address] [id number] [address] [place] [address], [place] [id number] 19 Jun, 2011 [facility] [address] [id number] [address] [place] [address], [place] [id number] 15 Jun, 2011 [facility] [address] [id number] [address] [place] [address], [place] [id number] 14 Jun, 2011 [facility] [address] [id number] [address] [place] [address], [place] [id number] 12 Jun, 2011 [facility] [address] [id number] [address] [place] [address], [place] [id number] Jun, [facility] [place] [address] [id number] [address] [place] [address], [place] [id number] Jun, [facility] [address] [id number] [address] [place] [address], [place] [id number] May, [facility] [address] [id number] [address] [place] [address], [place] [id number] May, [facility] [address] [id number] [address] [place] [address], [place] [id number] May, [facility] [address] [id number] [address] [place] [address], [place] [id number] May, [facility] [address] [id number] [address] [place] [address], [place] [id number] May, [facility] [address] [id number] [address] [place] [address], [place] [id number] Apr, [facility] [place] [address] [id number] [address] [place] [address], [place] [id number] Apr, [facility] [address] [id number] [address] [place] [address], [place] [id number] Apr, [facility] [address] [id number] [address] [place] [address], [place] [id number] Apr, [facility] [place] [address] [id number] [address] [place] [address], [place] [id number] Apr, [facility] [address] [id number] [address] [place] [address], [place] [id number] Mar, [facility] [address] [id number] [address] [place] [address], [place] [id number] Mar, [facility] [address] [id number] [address] [place] [address], [place] [id number] Mar, [facility] [address] [id number] [address] [place] [address], [place] [id number] Mar, [facility] [address] [id number] [address] [place] [address], [place] [id number] Mar, [facility] [address] [id number] [address] [place] [address], [place] [id number] Mar, [facility] [address] [id number] [address] [place] [address], [place] [id number] Mar, [facility] [address] [id number] [address] [place] [address], [place] [id number] Feb, [facility] [address] [id number] [address] [place] [address], [place] [id number] Feb, [facility] [address] [id number] [address] [place] [address], [place] [id number] Feb, [facility] [address] [id number] [address] [place] [address], [place] [id number] Feb, [facility] [address] [id number] [address] [place] [address], [place] [id number] Jan, [facility] [address] [id number] [address] [place] [address], [place] [id number] Jan, [facility] [address] [id number] [address] [place] [id number] Jan, [facility] [address] [id number] [address] [place] [id number] Jan, [facility] [address] [id number] [address] [place] [id number] Nov, [facility] [address] [id number] [address] [place] [address], [place] [id number] Mar, [facility] [address] [id number] [address] [place] [address], [place] [id number] Mar, [facility] [address] [id number] [address] [place] [id number] Mar, [facility] [address] [id number] [address] [place] [id number] Mar, [facility] [place] [address] [facility] [id number] [address] [place] [id number] Mar, [facility] [place] [address] [facility] [id number] [address] [place] [id number] Mar, [facility] [place] [address] [facility] [id number] [address] [place] [id number] Feb, [facility] [place] [address] [facility] [id number] [address] [place] [id number] Feb, [facility] [place] [address] [facility] [id number] [address] [place] [id number] Jan, [facility] [place] [address] [facility] [id number] [address] [place] [id number] Jan, [facility] [place] [address] [facility] [id number] [address] [place] [id number] Jan, IMMUNIZATIONS No Known Immunizations SOCIAL HISTORY [...] History CPAP Noncompliance_ Dr. Madden advises a [email or web address] driving. Medical History Bacterial meningitis 12/2016 Medical [...] surgery (summer) Surgical History Esophageal surgery-Dr. Cruz 6 Surgical History Colonoscopy History of Polyp s No Polyps on 2016 scope due to have repeat 2020 09-2015 & 2007 Surgical History Bladder surgery [facility] 03/2016 Surgical History Neurotransmitter placed 10/2017 Surgical [...]
--- OUTSIDE RECORDS SUMMARY | 2019-08-01 09:56 | XMS REPORT ---
Author Author Jah Lola Doctor Organization [facility] Address Unknown Phone Unavailable Care Team Providers Care Senior Investment Manager Name Role Phone Migration, Doctor Unavailable Unavailable PROBLEMS Type Condition ICD9-CM Code DEA81-WH Code Onset Dates Condition S tatus SNOMED Code Problem Hypothyroid E03.9 Active 37963401 Problem Generalized anxiety disorder F41.1 A ctive 68791064 Problem Asthma J45.909 Active 972224750 Problem Insomnia G47.00 Active 380208255 Problem Mixed stress and urge urinary incontinence N39.46 Active 550548576 Problem Palpitations R00.2 Active 4148214 2 Problem Essential (primary) hypertension I10 Active 83896690 Problem Fibromyalgia M79.7 Active 2684167 05 Problem Body mass index (BMI) of 40.0-44.9 in adult Z68.41 Active 539941950 Problem Seasonal allergic rhinitis due to pollen J30.1 Active 23946833 Problem Restless leg syndrome G25.81 Active 87057450 Problem Hypercholesterolemia E78.00 Active 37069736 Problem Stage 3 chronic kidney disease N18.3 Active 192006256 Problem Hypertensive heart and chron ic kidney disease with heart failure and stage 1 through stage 4 chronic kidney disease, or unspecified chronic kidney disease I13.0 Active 94765198 Problem Primary osteoarthritis of left knee M17.12 Active 964586247 Problem Low back pain M54.5 Active 365322 009 Problem Chronic pain syndrome G89.4 Active 124139501 Problem Perimenopausal vasomotor symptoms N95.1 Active 638169412 Problem Major depressive disorder, recurrent, moderate F33 .1 Active 850229795 Problem Atherosclerosis of havasupai co 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.119 Active [id number] ALLERGIES No Information ENCOUNTERS Encounter Location Date Diagnosis [facility] [address] [facility] [id number] [address] [place] [id number] August, [facility] [address] [facility] [id number] [address] [place] [phone] Jun, [facility] [address] [place] [id number] [address] [place] [phone] Jun, Fibromyalgia M79.7 ; Stage 3 chronic kidney disease N18.3 ; Essential (primary) hypertension I10 ; Hypertensive heart and chronic kidney disease with heart failure and stage 1 through stage 4 chronic kidney disease, or unspecified chronic kidney disease I13.0 and Lymphadenopathy R59.1 [facility] [address] [place] [address] Jun, Chronic pain syndrome G89.4 [place] [address] [place] [phone] May, Cystitis N30.90 [place] [address] [place] [id number] [place] [address] May, [facility] [address] [place] [id number] [place] [phone] May, [facility] [address] [place] [id number] [place] [phone] May, Chronic pain syndrome G89.4 [place] [address] [place] [id number] [place] [phone] May, Generalized anxiety disorder F41.1 and Major depressive disorder, recurrent episode with anxious distress F33.9 [place] [address] [place] [phone] Apr, Major depressive disorder, r ecurrent, moderate F33.1 ; Generalized anxiety disorder F41.1 and Dysthymic disorder F34.1 [place] [address] [place] [id number] [address] [place] [address] Apr, Chronic pain syndrome G89.4 [place] [address] [place] [id number] [address] [place] [address] Apr, Acute pain of right knee M25 .561 [place] [address] [place] [id number] [address] [place] [phone] Apr, [facility] [address] [place] [id number] [address] [place] [phone] Mar, Major depressive disorder, r ecurrent, moderate F33.1 ; Generalized anxiety disorder F41.1 and Dysthymic disorder F34.1 [facility] [address] [place] [id number] Mar, Fluid collection of middle e ar H65.90 and Dizziness R42 [facility] [address] [place] [phone] Mar, [facility] [address] [address] Mar, [facility] [address] [address] Mar, Essential (primary) hyperten maria eugenia I10 ; Stage 3 chronic kidney disease N18.3 ; Hypercholesterolemia E78.00 ; Asthma J45.909 ; Recurrent UTI N39.0 ; Status post shoulder surgery Z98.890 and Encounter for immunization Z23 [facility] [address] [address] Mar, Chronic pain syndrome G89.4 [place] [address] [place] [id number] [address] [place] [phone] Feb, [place] [address] [place] [id number] [address] [place] [phone] Feb, [facility] [address] [place] [address] Feb, Oral thrush B37.0 and Sore t hroat J02.9 [place] [address] [place] [id number] [address] [place] [address] Feb, Chronic pain syndrome G89.4 [place] [address] [place] [id number] [address] [place] [phone] Jan, [facility] [address] [place] [id number] [place] [id number] 14 Jan, 2019 Chronic pain syndrome G89.4 [place] [address] [facility] [id number] [address] [place] [id number] 02 Jan, 2019 Hypercholesterolemia E78.00 [place] [address] [place] [id number] [place] [id number] Jan, [place] [address] [place] [id number] [address] [place] [phone] Dec, Chronic kidney disease, 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 [place] [address] [place] [id number] [address] [place] [phone] Dec, Major depressive disorder, r ecurrent, moderate F33.1 ; Generalized anxiety disorder F41.1 and Dysthymic disorder F34.1 [place] [address] [address] Dec, Generalized anxiety disorder F41.1 and Major depressive disorder, recurrent episode with anxious distress F33.9 [place] [address] [place] [phone] Dec, [place] [address] [address] Dec, [place] [address] [place] [id number] [address] [place] [phone] Dec, Encounter for immunization Z 23 [place] [address] [place] [id number] [place] [phone] Dec, Diarrhea, unspecified type R 19.7 and Hemorrhoids, unspecified hemorrhoid type K64.9 [place] [address] [place] [id number] [place] [phone] Dec, Encounter for Medicare annua l wellness exam Z00.00 ; Chronic kidney disease, stage 4 (severe) N18.4 ; Encounter for immunization Z23 ; Major depressive disorder, recurrent, moderate F33.1 ; Atherosclerosis of havasupai co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.119 ; Asthma J45.909 ; Hypothyroid E03.9 and Fibromyalgia M79.7 [place] [address] [id number] [address] [place] [phone] Dec, Chronic pain syndrome G89.4 [place] [address] [id number] [address] [place] [phone] Nov, Major depressive disorder, r ecurrent, moderate F33.1 ; Generalized anxiety disorder F41.1 and Dysthymic disorder F34.1 [place] [address] [id number] [address] [place] [phone] Nov, [place] [address] [facility] [id number] [address] [place] [address] Nov, Chronic pain syndrome G89.4 [place] [address] [facility] [id number] [address] [place] [address] Nov, Restless leg syndrome G25.81 [place] [address] [facility] [id number] [address] [place] [address] Nov, Pain in right shoulder M25.5 11 ; Restless leg syndrome G25.81 ; Other chronic pain G89.29 ; Screening for breast cancer Z12.39 ; Insomnia G47.00 and Morbid obesity E66.01 [place] [address] [facility] [id number] [address] [place] [id number] Nov, [place] [address] [facility] [id number] [address] [place] [address] Oct, Major depressive disorder, r ecurrent, moderate F33.1 ; Generalized anxiety disorder F41.1 and Dysthymic disorder F34.1 [place] [address] [facility] [id number] [address] [place] [address] Oct, [place] [address] [facility] [id number] [address] [place] [address] Oct, Cellulitis of left lower ext remity L03.116 and Morbid obesity E66.01 [facility] [address] [id number] [address] [place] [phone] Oct, [facility] [address] [id number] [address] [place] [phone] Oct, [facility] [address] [id number] [address] [place] [phone] Oct, Generalized anxiety disorder F41.1 and Major depressive disorder, recurrent episode with anxious distress F33.9 [facility] [address] [id number] [address] [place] [phone] Oct, [facility] [address] [id number] [address] [place] [phone] Oct, Chronic pain syndrome G89.4 [facility] [address] [id number] [address] [place] [phone] Oct, Chronic pain syndrome G89.4 [facility] [address] [id number] [address] [place] [phone] Oct, UTI symptoms R39.9 ; Acute c ystitis without hematuria N30.00 and Morbid obesity E66.01 [facility] [address] [id number] [address] [place] [phone] Oct, [facility] [address] [id number] [address] [place] [phone] Oct, Chronic pain syndrome G89.4 [facility] [address] [id number] [address] [place] [phone] Sep, [facility] [address] [facility] [id number] [address] [place] [phone] Sep, Generalized anxiety disorder F41.1 and Major depressive disorder, recurrent episode with anxious distress F33.9 [facility] [address] [id number] [address] [place] [phone] Sep, Chronic kidney disease, 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 [facility] [address] [facility] [id number] [address] [place] [phone] 2018 Fibromyalgia M79.7 and Chron ic pain syndrome G89.4 [facility] [address] [facility] [id number] [address] [place] [phone] Sep, [facility] [address] [id number] [address] Sep, Chronic pain syndrome G89.4 [facility] [address] [facility] [id number] [address] [place] [id number] Sep, [facility] [address] [facility] [id number] [address] [place] [phone] Sep, Chronic pain syndrome G89.4 ; Fibromyalgia M79.7 and Morbid obesity E66.01 [facility] [address] [facility] [id number] [address] [place] [phone] August, Generalized anxiety disorder F41.1 and Major depressive disorder, recurrent episode with anxious distress F33.9 [facility] [address] [facility] [id number] [address] [place] [phone] August, Fibromyalgia M79.7 [facility] [address] [facility] [id number] [address] [place] [address] August, Restless leg syndrome G25.81 ; Vitamin D deficiency E55.9 ; Urinary tract infection without hematuria, site unspecified N39.0 ; Pain in right shoulder M25.511 ; Other chronic pain G89.29 ; Biceps tendinitis on right M75.21 and Morbid obesity E66.01 [facility] [address] [facility] [id number] [address] [place] [phone] Jul, Urinary tract infection with out hematuria, site unspecified N39.0 and Morbid obesity E66.01 [facility] [address] [facility] [id number] [address] [place] [phone] Jul, [facility] [address] [facility] [id number] [address] [place] [id number] Jul, [facility] [address] [facility] [id number] [address] [place] [phone] Jul, Fibromyalgia M79.7 [place] [address] [place] [id number] [place] [address] Jul, Acute pain of right shoulder M25.511 [facility] [address] [facility] [id number] [address] [place] [address] Jul, Acute pain of right shoulder M25.511 and Morbid obesity E66.01 [facility] [address] [facility] [id number] [address] [place] [id number] Jun, [place] [address] [place] [id number] [place] [id number] Jun, Generalized anxiety disorder F41.1 and Major depressive disorder, recurrent episode with anxious distress F33.9 [place] [address] [place] [id number] [place] [id number] Jun, [place] [address] [place] [id number] [place] [address] Jun, Fibromyalgia M79.7 [facility] [address] [facility] [id number] [place] [address] Jun, Acute pain of right shoulder M25.511 ; Acute pain of right hip M25.551 and Morbid obesity E66.01 [place] [address] [place] [id number] [place] [address] May, Burning with urination R30.0 ; Vaginal discharge N89.8 ; Chronic kidney disease, stage 4 (severe) N18.4 ; Body mass index (BMI) of 40.0-44.9 in adult Z68.41 and Morbid obesity E66.01 [place] [address] [place] [id number] [place] [id number] May, Fibromyalgia M79.7 [facility] [address] [place] [id number] [place] [id number] May, Generalized anxiety disorder F41.1 and Major depressive disorder, recurrent episode with anxious distress F33.9 [facility] [address] [id number] [address] [place] [phone] Apr, [facility] [address] [id number] [address] [place] [id number] 08 Apr, 2018 Fibromyalgia M79.7 [facility] [address] [id number] [address] [place] [id number] Mar, Acute UTI N39.0 and Dysuria R30.0 [facility] [address] [id number] [address] [place] [id number] 10 Mar, 2018 Fibromyalgia M79.7 [facility] [address] [id number] [address] [place] [id number] 15 Feb, 2018 [facility] [address] [id number] [address] [place] [id number] 14 Feb, 2018 [facility] [address] [id number] [address] [place] [id number] Feb, [facility] [address] [id number] [address] [place] [phone] Feb, Fibromyalgia M79.7 [facility] [address] [id number] [address] [place] [id number] 08 Feb, 2018 Complicated UTI (urinary tra ct infection) N39.0 [facility] [address] [id number] [address] [place] [id number] Feb, [facility] [address] [id number] [address] [place] [phone] Jan, Generalized anxiety disorder F41.1 and Major depressive disorder, recurrent episode with anxious distress F33.9 [facility] [address] [id number] [address] [place] [id number] Jan, Acute conjunctivitis of left eye, unspecified acute conjunctivitis type H10.32 [facility] [address] [id number] [address] [place] [id number] Jan, [facility] [address] [id number] [address] [place] [phone] Jan, Acute non-recurrent maxillar y sinusitis J01.00 ; Dysuria R30.0 ; Perimenopausal vasomotor symptoms N95.1 and Fibromyalgia M79.7 [facility] [address] [id number] [address] [place] [phone] Dec, Vitamin D deficiency E55.9 [facility] [address] [id number] [address] [place] [phone] Dec, Vitamin D deficiency E55.9 [facility] [address] [id number] [address] [place] [id number] Dec, Vitamin D deficiency E55.9 [facility] [address] [id number] [address] [place] [phone] Dec, [facility] [address] [id number] [address] [place] [phone] Dec, Fibromyalgia M79.7 [facility] [address] [id number] [address] [place] [id number] Nov, [facility] [address] [id number] [address] [place] [phone] Nov, [facility] [address] [id number] [address] [place] [phone] Nov, [facility] [address] [id number] [address] [place] [address] Nov, Fibromyalgia M79.7 ; Vision changes H53.9 ; Chest wall pain R07.89 and Chronic pain syndrome G89.4 [facility] [address] [id number] [address] [place] [id number] Nov, [facility] [address] [facility] [id number] [address] [place] [address] Nov, Rash of hands R21 [facility] [address] [id number] [address] [place] [id number] Nov, Generalized anxiety disorder F41.1 and Major depressive disorder, recurrent episode with anxious distress F33.9 [place] [address] [facility] [id number] [address] [place] [phone] Nov, Fibromyalgia M79.7 [place] [address] [facility] [id number] [address] [place] [phone] Nov, Complicated UTI (urinary tra ct infection) N39.0 [place] [address] [facility] [id number] [address] [place] [address] Oct, [place] [address] [facility] [id number] [address] [place] [id number] Oct, Generalized anxiety disorder F41.1 and Major depressive disorder, recurrent episode with anxious distress F33.9 [place] [address] [place] [id number] [place] [phone] Oct, [place] [address] [place] [id number] [place] [id number] Oct, Fibromyalgia M79.7 [place] [address] [place] [id number] [place] [address] Sep, Restless leg syndrome G25.81 and Restless leg G25.81 [place] [address] [place] [id number] [place] [phone] Sep, [place] [address] [place] [id number] [place] [address] Sep, Seasonal allergic rhinitis d ue to pollen J30.1 ; Screening for breast cancer Z12.31 ; Chest pain at rest R07.9 ; Restless leg syndrome G25.81 ; Essential (primary) hypertension I10 and Depressed F32.9 [place] [address] [place] [id number] [place] [id number] August, Fibromyalgia M79.7 [place] [address] [place] [id number] [place] [id number] August, [facility] [address] [facility] [id number] [address] [place] [phone] August, [facility] [address] [facility] [id number] [address] [place] [id number] August, Abnormal chest [address] R93.8 [facility] [address] [facility] [id number] [address] [place] [id number] August, Generalized anxiety disorder F41.1 and Major depressive disorder, recurrent episode with anxious distress F33.9 [facility] [address] [facility] [id number] [address] [place] [id number] August, Abnormal chest CT R93.8 [facility] [address] [facility] [id number] [address] [place] [id number] Jul, [facility] [address] [facility] [id number] [address] [place] [id number] Jul, Chronic kidney disease, 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 [facility] [address] [facility] [id number] [address] [place] [id number] Jul, [place] [address] [facility] [id number] [address] [place] [id number] Jul, Restless leg G25.81 ; Mixed stress and urge urinary incontinence N39.46 and Fibromyalgia M79.7 [facility] [address] [facility] [id number] [address] [place] [id number] Jul, Chronic kidney disease, 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 [facility] [address] [facility] [id number] [address] [place] [id number] Jun, Orthostatic hypotension I95. 1 ; Chronic kidney disease, stage 4 (severe) N18.4 ; Chest wall discomfort R07.89 and Body mass index (BMI) of 40.0- 44.9 in adult Z68.41 [place] [address] [place] [id number] [place] [phone] Jun, [facility] [address] [facility] [id number] [address] [place] [address] Jun, Orthostatic hypotension I95. 1 [facility] [address] [facility] [id number] [address] [place] [id number] Jun, [facility] [address] [facility] [id number] [address] [place] [phone] Jun, Orthostatic hypotension I95. 1 ; Dysuria R30.0 and Acute cystitis without hematuria N30.00 [facility] [address] [facility] [id number] [address] [place] [id number] Jun, [facility] [address] [facility] [id number] [address] [place] [phone] Jun, Chronic kidney disease, 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 [facility] [address] [facility] [id number] [address] [place] [phone] Jun, Fibromyalgia M79.7 [facility] [address] [facility] [id number] [address] [place] [phone] Jun, [facility] [address] [facility] [id number] [address] [place] [phone] Jun, [facility] [address] [facility] [id number] [address] [place] [id number] May, Abnormal chest [address] R93.8 and Stage 3 chronic kidney disease N18.3 [facility] [address] [facility] [id number] [address] [place] [id number] May, Chronic kidney disease, 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 [facility] [address] [facility] [id number] [address] [place] [id number] May, Chronic kidney disease, 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 [facility] [address] [facility] [id number] [address] [place] [id number] May, [address] R93.8 [facility] [address] [id number] [address] [place] [phone] May, [facility] [address] [id number] [address] [place] [phone] May, [facility] [address] [id number] [address] [place] [id number] May, Generalized anxiety disorder F41.1 and Major depressive disorder, recurrent episode with anxious distress F33.9 [facility] [address] [id number] [address] [place] [id number] May, Mood disorder F39 [facility] [address] [id number] [address] [place] [id number] Apr, [facility] [address] [id number] [address] [place] [id number] Apr, Infected skin lesion L08.9 a nd Muscle strain of right shoulder region, initial encounter S46.911A [facility] [address] [id number] [address] [place] [id number] Apr, Generalized anxiety disorder F41.1 and Major depressive disorder, recurrent episode with anxious distress F33.9 [facility] [address] [id number] [address] [place] [phone] Apr, [facility] [address] [id number] [address] [place] [id number] Apr, Recent urinary tract infecti on Z87.440 and Hypothyroid E03.9 [facility] [address] [id number] [place] [id number] Apr, Generalized anxiety disorder F41.1 and Major depressive disorder, recurrent episode with anxious distress F33.9 [facility] [address] [id number] [address] [place] [id number] Apr, Recent urinary tract infecti on Z87.440 [facility] [address] [id number] [address] [place] [id number] Mar, [facility] [address] [facility] [id number] [address] [place] [id number] Mar, Dysuria R30.0 ; Acute cystit is without hematuria N30.00 and BMI 40.0-44.9, adult Z68.41 [facility] [address] [facility] [id number] [address] [place] [id number] 14 Mar, 2017 [facility] [address] [facility] [id number] [address] [place] [id number] Mar, [facility] [address] [facility] [id number] [address] [place] [id number] Mar, Generalized anxiety disorder F41.1 and Major depressive disorder, recurrent episode with anxious distress F33.9 [place] [address] [address] [facility] [id number] [address] [place] [id number] 29 Feb, 2017 Conjunctivitis, bacterial H1 0.9 [place] [address] [facility] [id number] [address] [place] [phone] Feb, [facility] [address] [facility] [id number] [address] [place] [phone] Feb, Conjunctivitis, bacterial H1 0.9 [facility] [address] [facility] [id number] [address] [place] [id number] 15 Feb, 2017 [facility] [address] [facility] [id number] [address] [place] [id number] 10 Feb, 2017 Dysuria R30.0 ; Acute cystit is N30.00 and BMI 40.0-44.9, adult Z68.41 [facility] [address] [facility] [id number] [address] [place] [phone] Feb, [place] [address] [address] [facility] [id number] [address] [place] [phone] Feb, Generalized anxiety disorder F41.1 and Major depressive disorder, recurrent episode with anxious distress F33.9 [place] [address] [address] [place] [id number] [address] [place] [phone] Feb, Mood disorder F39 and BMI 40 .0-44.9, adult Z68.41 [facility] [address] [facility] [id number] [address] [place] [id number] Jan, [facility] [address] [facility] [id number] [address] [place] [id number] Jan, [facility] [address] [place] [id number] [address] [place] [phone] Jan, Hypothyroid E03.9 [facility] [address] [facility] [id number] [address] [place] [id number] Jan, [facility] [address] [place] [id number] [place] [phone] Jan, Chronic kidney disease, unsp ecified N18.9 ; Hypokalemia E87.6 ; Essential (primary) hypertension I10 ; Fibromyalgia M79.7 ; Coronary artery disease involving havasupai coronary artery of havasupai heart, angina presence unspecified I25.10 ; Hypothyroid E03.9 and Encounter for immunization Z23 [facility] [address] [place] [id number] [address] [place] [phone] Jan, Hypothyroid E03.9 [facility] [address] [facility] [id number] [address] [place] [phone] Jan, [facility] [address] [place] [id number] [address] [place] [id number] Dec, Vitamin D deficiency E55.9 [facility] [address] [facility] [id number] [address] [place] [id number] Dec, Primary osteoarthritis of le ft knee M17.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 [facility] [address] [facility] [id number] [address] [place] [id number] Dec, Fibromyalgia M79.7 [facility] [address] [place] [id number] [address] [place] [id number] 18 Dec, 2016 Mood disorder F39 [facility] [address] [id number] [address] [place] [id number] 13 Dec, 2016 [facility] [address] [id number] [address] [place] [id number] 13 Dec, 2016 Generalized anxiety disorder F41.1 and Major depressive disorder, recurrent episode with anxious distress F33.9 [facility] [address] [id number] [address] [place] [id number] 11 Dec, 2016 [facility] [address] [id number] [address] [place] [id number] 08 Dec, 2016 Streptococcal meningitis G00 .2 [facility] [address] [id number] [address] [place] [id number] 07 Dec, 2016 Streptococcal meningitis G00 .2 [facility] [address] [id number] [address] [place] [id number] 07 Dec, 2016 [facility] [address] [id number] [address] [place] [id number] 06 Dec, 2016 Streptococcal meningitis G00 .2 [facility] [address] [id number] [address] [place] [id number] 06 Dec, 2016 [facility] [address] [id number] [address] [place] [id number] 06 Dec, 2016 Major depressive disorder, r ecurrent episode with anxious distress F33.9 [facility] [address] [id number] [address] [place] [id number] Nov, Fever, unspecified fever cau se R50.9 [facility] [address] [id number] [address] [place] [id number] 24 Nov, 2016 [facility] [address] [id number] [address] [place] [id number] 16 Nov, 2016 Hypothyroid E03.9 [facility] [address] [id number] [address] [place] [id number] Nov, Generalized anxiety disorder F41.1 and Major depressive disorder, recurrent episode with anxious distress F33.9 [facility] [address] [id number] [address] [place] [id number] Nov, [facility] [address] [id number] [address] [place] [id number] Oct, Dental examination Z01.20 [facility] [address] [id number] [address] [place] [id number] Oct, Generalized anxiety disorder F41.1 and Major depressive disorder, recurrent episode with anxious distress F33.9 [facility] [address] [id number] [address] [place] [id number] Oct, Chronic kidney disease, 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 [facility] [address] [id number] [address] [place] [phone] Oct, [facility] [address] [facility] [id number] [address] [place] [id number] Oct, Fibromyalgia M79.7 [facility] [address] [id number] [address] [place] [id number] Oct, [facility] [address] [facility] [id number] [address] [place] [phone] Oct, Generalized anxiety disorder F41.1 ; Major depressive disorder, recurrent episode with anxious distress F33.9 and Bipolar disorder, current episode manic without psychotic features F31.10 [facility] [address] [id number] [address] [place] [id number] Sep, [facility] [address] [id number] [address] [place] [phone] Sep, [facility] [address] [facility] [id number] [address] [place] [id number] Sep, Vitamin D deficiency E55.9 [facility] [address] [id number] [address] [place] [id number] 14 Sep, 2016 Vitamin D deficiency E55.9 [facility] [address] [place] [id number] [address] [place] [id number] Sep, [place] [address] [address] Sep, Chronic kidney disease, 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 ; Hypothyroid E03.9 ; Restless leg G25.81 ; Fibromyalgia M79.7 ; Essential (primary) hypertension I10 ; Vitamin D deficiency E55.9 ; Dyspepsia R10.13 ; Anemia in chronic kidney disease D63.1 ; Chronic kidney disease, unspecified N18.9 ; Coronary artery disease involving havasupai coronary artery of havasupai heart, angina presence unspecified I25.10 ; Screening breast examination Z12.39 and Low back pain M54.5 [place] [address] [address] [place] [id number] [address] [place] [phone] August, Generalized anxiety disorder F41.1 and Major depressive disorder, recurrent episode with anxious distress F33.9 [place] [address] [id number] August, Generalized anxiety disorder F41.1 and Major depressive disorder, recurrent episode with anxious distress F33.9 [place] [address] [id number] August, Fibromyalgia M79.7 [place] [address] [address] Jul, Generalized anxiety disorder F41.1 and Major depressive disorder, recurrent episode with anxious distress F33.9 [place] [id number] [place] [id number] Jul, Fibromyalgia M79.7 [place] [address] [address] Jul, Generalized anxiety disorder F41.1 [place] [address] [place] [id number] [address] [place] [id number] May, [place] [address] [id number] 16 May, 2016 Hypothyroid E03.9 [place] [address] [id number] [address] [place] [id number] 08 May, 2016 Chronic kidney disease, stag [...] of havasupai heart, angina presence unspecified I25.10 [place] [address] [id number] [address] [place] [id number] May, Vitamin D deficiency, unspec ified E55.9 [place] [address] [id number] [address] [place] [id number] May, Generalized anxiety disorder F41.1 and Major depressive disorder, recurrent episode with anxious distress F33.9 [place] [address] [id number] [address] [place] [id number] Apr, Pain in right knee M25.561 a nd Pain in left knee M25.562 [place] [address] [id number] [address] [place] [id number] Apr, [place] [address] [facility] [id number] [address] [place] [id number] Apr, [place] [address] [id number] [address] [place] [phone] Apr, [place] [address] [facility] [id number] [address] [place] [id number] Mar, Generalized anxiety disorder F41.1 and Major depressive disorder, recurrent episode with anxious distress F33.9 [place] [address] [facility] [id number] [address] [place] [id number] Mar, Generalized anxiety disorder F41.1 and Major depressive disorder, recurrent episode with anxious distress F33.9 [place] [address] [id number] Mar, [place] [address] [address] Mar, [place] [address] [id number] Mar, [place] [address] [address] Mar, Asthma J45.909 and Fibromyal elvira M79.7 [place] [address] [address] Mar, Chronic kidney disease, 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 ; Vitamin D deficiency E55.9 and Essential (primary) hypertension I10 [place] [address] [address] Feb, [place] [address] [address] Feb, Dysuria R30.0 ; Mixed stress and urge urinary incontinence N39.46 ; Fibromyalgia M79.7 and Chronic kidney disease, stage IV (severe) N18.4 [place] [address] [address] Feb, Chronic kidney disease, 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 [place] [address] [address] Feb, Chronic kidney disease, 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 [place] [address] [address] Feb, [place] [address] [address] Feb, Vitamin D deficiency, unspec ified E55.9 [place] [address] [address] Jan, [facility] [address] [address] Jan, [facility] [address] [place] [id number] [place] [id number] Dec, [place] [address] [address] Dec, Chronic kidney disease, 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 [place] [address] [address] Dec, Dysthymic disorder F34.1 and Generalized anxiety disorder F41.1 [place] [address] [address] Dec, [place] [address] [address] Dec, [place] [address] [address] Dec, Dysthymic disorder F34.1 and Generalized anxiety disorder F41.1 [place] [address] [address] Dec, Dysuria R30.0 ; Chronic kidn ey disease, stage 4 (severe) N18.4 ; Hypertension I10 ; Dyspepsia R10.13 ; Yeast dermatitis B37.2 ; Palpitations R00.2 ; Hypothyroid E03.9 ; Functional diarrhea K59.1 and Other seasonal allergic rhinitis J30.2 [facility] [address] [address] Dec, [facility] [address] Nov, Dysuria R30.0 and Stress inc ontinence N39.3 [place] [address] [address] Nov, [facility] [address] [place] [id number] [address] [place] [id number] Nov, [facility] [address] [place] [id number] [place] [id number] Nov, Osteoarthritis of knees, jose ateral M17.0 [facility] [address] [place] [id number] [place] [id number] Nov, Dysthymic disorder F34.1 and Generalized anxiety disorder F41.1 [place] [address] [place] [id number] [address] [place] [id number] Nov, [place] [address] [place] [id number] [place] [phone] Nov, [place] [address] [address] Nov, Urgency of urination R39.15 [place] [address] [address] Nov, [place] [address] [address] Nov, Chronic kidney disease, 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 [place] [address] [address] Oct, Hypertension I10 ; Coronary artery disease involving havasupai coronary artery of havasupai heart, angina presence unspecified I25.10 ; Palpitations R00.2 ; Hypothyroid E03.9 ; Right foot pain M79.671 ; Functional diarrhea K59.1 and Other seasonal allergic rhinitis J30.2 [place] [address] [place] [id number] [address] [place] [id number] Oct, Dysthymic disorder F34.1 and Generalized anxiety disorder F41.1 [facility] [address] [place] [id number] [address] [place] [phone] Sep, [place] [address] [address] Sep, [place] [address] [address] Sep, [place] [address] [address] Sep, [address] [address] Sep, [place] [address] [address] Sep, Dysthymic disorder F34.1 and Generalized anxiety disorder F41.[address] [address] 16 Sep, 2015 Asthma with acute exacerbati on in adult J45.901 ; Dysuria R30.0 ; Chronic kidney disease, stage 4 (severe) N18.4 and History of anemia Z86.[address] [address] Sep, Generalized anxiety disorder F41.1 and Dysthymic disorder F34.[address] [address] August, Screening breast examination Z12.39 and Acute recurrent maxillary sinusitis J01.[address] [address] August, Osteoarthritis of knees, jose ateral M17.[address] [address] August, Chronic kidney disease, 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 ; Acute non- recurrent maxillary sinusitis J01.00 ; Urinary problem R39.89 ; Bowel habit changes R19.4 ; Functional diarrhea K59.1 and History of colon polyps Z86.[address] [address] Jul, Dysthymic disorder F34.1 and Generalized anxiety disorder F41.1 [facility] [address] [place] [id number] Jul, [facility] [address] [place] [id number] [address] [place] [address] Jul, Dysthymic disorder F34.1 ; G eneralized anxiety disorder F41.1 and snf use of drug Z79.899 [facility] [address] [place] [address] Jul, [facility] [address] [address] Jun, [facility] [address] [place] [id number] [place] [address] Jun, [place] [address] [address] May, [facility] [address] [address] May, Dysthymic disorder F34.1 and Generalized anxiety disorder F41.1 [facility] [address] [place] [address] Apr, Kidney disease N28.9 [place] [address] [address] Apr, Generalized anxiety disorder F41.1 and Dysthymic disorder F34.1 [facility] [address] [place] [address] Apr, Chronic kidney disease, 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 [facility] [address] [place] [id number] [address] [place] [address] Apr, Generalized anxiety disorder F41.1 ; Major depression, recurrent F33.9 and Sleep disturbance G47.9 [facility] [address] [place] [id number] [address] [place] [address] Mar, Generalized anxiety disorder F41.1 and Dysthymic disorder F34.1 [facility] [address] [place] [id number] [place] [address] Mar, Generalized anxiety disorder F41.1 ; Dysthymic disorder F34.1 and Insomnia G47.00 [facility] [address] [place] [id number] [address] [place] [phone] Mar, [facility] [address] [address] Mar, [facility] [address] [address] Mar, Osteoarthritis of knees, jose ateral M17.0 [facility] [address] [place] [id number] [place] [id number] Mar, Hypertension I10 ; Hypothyro id E03.9 ; Dysthymic disorder F34.1 ; Chronic kidney disease, stage 4 (severe) N18.4 and Nausea & vomiting R11.2 [facility] [address] [address] Mar, Generalized anxiety disorder F41.1 ; Dysthymic disorder F34.1 and Insomnia G47.00 [facility] [address] [address] Mar, Dehydration E86.0 ; Chronic kidney disease, stage 4 (severe) N18.4 and Nausea & vomiting R11.2 [facility] [address] [facility] [id number] [address] [place] [address] Mar, Gastroenteritis K52.9 [facility] [address] [place] [id number] [place] [address] Mar, [facility] [address] [place] [id number] [address] [place] [address] Mar, [facility] [address] [address] Feb, Dysthymic disorder F34.1 and Generalized anxiety disorder F41.1 [place] [address] [address] Jan, UTI (urinary tract infection ) N39.0 ; Asthma J45.909 ; Coronary artery disease involving havasupai coronary artery of havasupai heart, angina presence unspecified I25.10 ; Hypertension I10 ; Hypothyroid E03.9 ; Vitamin D deficiency E55.9 ; Insomnia G47.00 ; Palpitations R00.2 ; Depressed F32.9 ; Restless leg G25.81 and Anxiety F41.9 [place] [address] [address] Jan, Dysthymic disorder F34.1 and Generalized anxiety disorder F41.1 [place] [address] [address] Jan, [place] [address] [address] Dec, [place] [address] [address] Dec, Alkalosis 276.3 ; Chronic ki dney disease, Stage IV (severe) 585.4 ; Hyperpotassemia 276.7 ; Secondary hyperparathyroidism, renal 588.81 ; Proteinuria 791.0 ; Unspecified vitamin D deficiency 268.9 ; Anemia in chronic kidney disease 285.21 ; Other and unspecified hyperlipidemia 272.4 ; Hypertension, essential, benign 401.1 and Chronic kidney disease (CKD), stage III (moderate) 585.3 [place] [address] [place] [id number] [address] [place] [id number] Dec, [place] [address] [address] Dec, Depressive disorder, not els ewhere classified 311 and Generalized anxiety disorder 300.02 [place] [address] [address] Dec, [facility] [address] [place] [id number] [address] [place] [address] Dec, [place] [address] [place] [id number] [place] [address] Nov, Depressive disorder, not els ewhere classified 311 and Generalized anxiety disorder 300.02 [facility] [address] [address] Nov, Arthritis of both knees 716. 96 [facility] [address] [address] Nov, PAF (paroxysmal atrial fibri llation) 427.31 ; CAD (coronary artery disease) 414.00 ; Chest pain 786.50 and Chronic kidney disease (CKD) stage G4/A1, severely decreased glomerular filtration rate (GFR) between 15-29 mL/min/1.73 square meter and albuminuria creatinine ratio less than 30 mg/g 585.4 [place] [address] [address] Oct, Coronary atherosclerosis of unspecified type of vessel, havasupai or graft 414.00 ; Chronic kidney disease, Stage IV (severe) 585.4 ; Hypertension 401.9 and Edema 782.3 [place] [address] [address] Oct, Depressive disorder, not els ewhere classified 311 and Generalized anxiety disorder 300.02 [place] [address] [place] [id number] [address] [place] [address] Oct, Depressive disorder, not els ewhere classified 311 and Generalized anxiety disorder 300.02 [place] [address] [place] [id number] [address] [place] [address] Oct, [place] [address] [address] Oct, [facility] [address] [place] [id number] [address] [place] [address] Sep, [facility] [address] [address] Sep, Chronic kidney disease, Stag e IV (severe) 585.4 [facility] [address] [address] Sep, [facility] [address] [address] Sep, Coronary atherosclerosis of unspecified type of vessel, havasupai or graft 414.00 ; Hypertension 401.9 ; Edema 782.3 and Hypothyroidism 244.9 [place] [address] [address] Sep, Coronary atherosclerosis of unspecified type of vessel, havasupai or graft 414.00 ; Hypertension 401.9 ; Fibromyalgia 729.1 ; Edema 782.3 ; Hypothyroidism 244.9 and Anemia 285.[address] [address] Sep, Anxiety disorder, unspecifie d 300.00 and Depressive disorder, not elsewhere classified 311 [facility] [address] [address] Sep, [place] [address] [address] August, Generalized anxiety disorder 300.02 [place] [address] [address] August, Closed fracture of lateral m alleolus 824.2 [facility] [address] [address] Jul, [facility] [address] [address] Jul, [facility] [address] [id number] Jun, [facility] [address] [address] Jun, [facility] [address] [id number] [address] [place] [address], [place] [address] 13 Jun, 2014 [facility] [address] [id number] [address] [place] [address], [place] [address] Jun, 2014 [facility] [address] [id number] [address] [place] [address], [place] [address] Jun, 2014 [facility] [address] [id number] [address] [place] [address], [place] [address] 02 Jun, 2014 [facility] [address] [id number] [address] [place] [address], [place] [address] May, 2014 [facility] [address] [id number] [address] [place] [address], [place] [address] 19 May, 2014 [facility] [address] [id number] [address] [place] [address], [place] [address] 18 May, 2014 [facility] [address] [id number] [address] [place] [address], [place] [address] 18 May, 2014 [facility] [address] [id number] [address] [place] [address], [place] [address] 16 May, 2014 [facility] [address] [id number] [address] [place] [address], [place] [address] 16 May, 2014 [facility] [address] [id number] [address] [place] [address], [place] [address] 13 May, 2014 [facility] [address] [id number] [address] [place] [address], [place] [address] 13 May, 2014 [facility] [address] [id number] [address] [place] [address], [place] [address] 10 May, 2014 [facility] [address] [id number] [address] [place] [address], [place] [address] 10 May, 2014 [facility] [address] [id number] [address] [place] [address], [place] [address] Apr, [facility] [address] [id number] [address] [place] [address], [place] [address] Apr, [facility] [address] [id number] [address] [place] [address], [place] [address] Mar, [facility] [address] [id number] [address] [place] [address], [place] [address] Mar, [facility] [address] [id number] [address] [place] [address], [place] [address] Mar, [facility] [address] [id number] [address] [place] [address], [place] [address] Mar, [facility] [address] [id number] [address] [place] [address], [place] [address] Mar, [facility] [address] [id number] [address] [place] [address], [place] [address] Mar, [facility] [address] [id number] [address] [place] [address], [place] [address] Mar, [facility] [address] [id number] [address] [place] [address], [place] [address] Feb, [facility] [address] [id number] [address] [place] [address], [place] [address] Feb, [facility] [address] [id number] [address] [place] [address], [place] [address] Feb, [facility] [address] [id number] [address] [place] [address], [place] [address] Jan, [facility] [address] [id number] [address] [place] [address], [place] [address] Jan, [facility] [address] [id number] [address] [place] [address], [place] [address] Jan, [facility] [address] [id number] [address] [place] [address], [place] [address] Jan, [facility] [address] [id number] [address] [place] [address], [place] [address] Jan, [facility] [address] [id number] [facility] [address] Jan, [facility] [address] [id number] [address] [place] [address], [place] [address] Jan, [facility] [address] [id number] [address] [place] [address], [place] [address] Jan, [facility] [address] [id number] [address] [place] [address], [place] [address] Jan, [facility] [address] [id number] [address] [place] [address], [place] [address] Jan, [facility] [address] [id number] [address] [place] [address], [place] [address] Nov, [facility] [address] [id number] [address] [place] [address], [place] [address] Nov, [facility] [address] [id number] [address] [place] [address], [place] [address] Nov, [facility] [address] [id number] [address] [place] [address], [place] [address] Oct, [facility] [address] [id number] [address] [place] [address], [place] [address] Oct, [facility] [address] [id number] [address] [place] [address], [place] [address] Oct, [facility] [address] [id number] [address] [place] [address], [place] [address] Oct, [facility] [address] [id number] [address] [place] [address], [place] [address] Oct, [facility] [address] [id number] [address] [place] [address], [place] [address] Oct, [facility] [address] [id number] [address] [place] [address], [place] [address] Oct, [facility] [address] [id number] [address] [place] [address], [place] [address] Oct, [facility] [address] [id number] [address] [place] [address], [place] [address] Oct, [facility] [address] [id number] [address] [place] [address], [place] [address] Sep, [facility] [address] [id number] [address] [place] [address], [place] [address] Sep, [facility] [address] [id number] [address] [place] [address], [place] [address] Sep, [facility] [address] [id number] [address] [place] [address], [place] [address] Sep, [facility] [address] [id number] [address] [place] [address], [place] [address] Sep, [facility] [address] [id number] [address] [place] [address], [place] [address] Sep, [facility] [address] [id number] [address] [place] [address], [place] [address] Sep, [facility] [address] [id number] [address] [place] [address], [place] [address] Sep, [facility] [address] [id number] [address] [place] [address], [place] [address] Sep, [facility] [address] [id number] [address] [place] [address], [place] [address] August, [facility] [address] [id number] [address] [place] [address], [place] [address] August, [facility] [address] [id number] [address] [place] [address], [place] [address] August, [facility] [address] [id number] [address] [place] [address], [place] [address] August, [facility] [address] [id number] [address] [place] [address], [place] [address] August, [facility] [address] [id number] [address] [place] [address], [place] [address] August, [facility] [address] [id number] [address] [place] [address], [place] [address] Jul, [facility] [address] [id number] [address] [place] [address], [place] [address] Jul, [facility] [address] [id number] [address] [place] [address], [place] [address] Jul, [facility] [address] [id number] [address] [place] [address], [place] [address] Jul, [facility] [address] [id number] [address] [place] [address], [place] [address] Jul, [facility] [address] [id number] [address] [place] [address], [place] [address] Jul, [facility] [address] [id number] [address] [place] [address], [place] [address] Jun, [facility] [address] [id number] [address] [place] [address], [place] [address] Jun, [facility] [address] [id number] [address] [place] [address], [place] [address] May, [facility] [address] [id number] [address] [place] [address], [place] [address] May, [facility] [address] [id number] [address] [place] [address], [place] [address] May, [facility] [address] [id number] [address] [place] [address], [place] [address] May, [facility] [address] [id number] [address] [place] [address], [place] [address] Apr, [facility] [address] [id number] [address] [place] [address], [place] [address] Apr, [facility] [address] [id number] [address] [place] [address], [place] [address] 18 Mar, 2013 [facility] [address] [id number] [address] [place] [address], [place] [address] 18 Mar, 2013 [facility] [address] [id number] [address] [place] [address], [place] [address] 17 Mar, 2013 [facility] [address] [id number] [address] [place] [address], [place] [address] 17 Mar, 2013 [facility] [address] [id number] [address] [place] [address], [place] [address] 05 Mar, 2013 [facility] [address] [id number] [address] [place] [address], [place] [address] 05 Mar, 2013 [facility] [address] [id number] [address] [place] [address], [place] [address] Feb, [facility] [address] [id number] [address] [place] [address], [place] [address] Feb, [facility] [address] [id number] [address] [place] [address] 14 Feb, 2013 [facility] [address] [id number] [address] [place] [address], [place] [address] 14 Feb, 2013 [facility] [address] [id number] [address] [place] [id number] 05 Feb, 2013 [facility] [address] [id number] [address] [place] [address] Feb, [facility] [address] [id number] [address] [place] [id number] 24 Jan, 2013 [facility] [address] [id number] [address] [place] [address], [place] [address] 24 Jan, 2013 [facility] [address] [id number] [address] [place] [id number] 10 Jan, 2013 [facility] [address] [id number] [address] [place] [id number] 10 Jan, 2013 [facility] [address] [id number] [address] [place] [address], [place] [address] 08 Jan, 2013 [facility] [address] [id number] [address] [place] [address], [place] [address] Jan, [facility] [address] [id number] [address] [place] [address], [place] [address] Dec, [facility] [address] [id number] [address] [place] [address], [place] [address] Dec, [facility] [address] [id number] [address] [place] [address], [place] [address] Nov, [facility] [address] [id number] [address] [place] [address], [place] [address] Nov, [facility] [address] [id number] [address] [place] [address], [place] [address] Oct, [facility] [address] [id number] [address] [place] [address], [place] [address] Oct, [facility] [address] [id number] [address] [place] [address], [place] [address] Oct, [facility] [address] [id number] [address] [place] [address], [place] [address] Oct, [facility] [address] [id number] [address] [place] [address], [place] [address] Oct, [facility] [address] [id number] [address] [place] [address], [place] [address] Oct, [facility] [address] [id number] [address] [place] [address], [place] [address] Sep, [facility] [address] [id number] [address] [place] [address], [place] [address] Sep, [facility] [address] [id number] [address] [place] [address], [place] [address] Sep, [facility] [address] [id number] [address] [place] [address], [place] [address] Sep, [facility] [address] [id number] [address] [place] [address], [place] [address] August, [facility] [address] [id number] [address] [place] [address], [place] [address] August, [facility] [address] [id number] [address] [place] [address], [place] [address] August, [facility] [address] [id number] [address] [place] [address], [place] [address] August, [facility] [address] [id number] [address] [place] [address], [place] [address] August, [facility] [address] [id number] [address] [place] [address], [place] [address] Jul, [facility] [address] [id number] [address] [place] [address], [place] [address] Jul, [facility] [address] [id number] [address] [place] [address], [place] [address] Jul, [facility] [address] [id number] [address] [place] [address], [place] [address] Jul, [facility] [address] [id number] [address] [place] [address], [place] [address] Jul, [facility] [address] [id number] [address] [place] [address], [place] [address] Jul, [facility] [address] [id number] [address] [place] [address], [place] [address] Jul, [facility] [address] [id number] [address] [place] [address], [place] [address] Jul, [facility] [address] [id number] [address] [place] [address], [place] [address] Jul, [facility] [address] [id number] [address] [place] [address], [place] [address] Jul, [facility] [address] [id number] [id number] Jun, [facility] [address] [id number] [address] [place] [address], [place] [address] Jun, [facility] [address] [id number] [address] [place] [address], [place] [address] Jun, [facility] [address] [id number] [address] [place] [address], [place] [address] Jun, [facility] [address] [id number] [address] [place] [address], [place] [address] Jun, [facility] [address] [id number] [address] [place] [address], [place] [address] May, [facility] [address] [id number] [address] [place] [address], [place] [address] May, [facility] [address] [id number] [address] [place] [address], [place] [address] May, [facility] [address] [id number] [address] [place] [address], [place] [address] Apr, [facility] [address] [id number] [address] [place] [address], [place] [address] Apr, [facility] [address] [id number] [address] [place] [address], [place] [address] Apr, [facility] [place] [address] [id number] [address] [place] [address], [place] [address] Apr, [facility] [address] [id number] [address] [place] [address], [place] [address] Apr, [facility] [address] [id number] [address] [place] [address], [place] [address] Apr, [facility] [address] [id number] [address] [place] [address], [place] [address] Mar, [facility] [address] [id number] [address] [place] [address], [place] [address] Mar, [facility] [address] [id number] [address] [place] [address], [place] [address] Mar, [facility] [address] [id number] [address] [place] [address], [place] [address] Mar, [facility] [address] [id number] [address] [place] [address], [place] [address] Feb, [facility] [address] [id number] [address] [place] [address], [place] [address] Feb, [facility] [address] [id number] [address] [place] [address], [place] [address] Feb, [facility] [address] [id number] [address] [place] [address], [place] [address] Feb, [facility] [address] [id number] [address] [place] [address], [place] [address] Feb, [facility] [address] [id number] [address] [place] [address], [place] [address] Feb, [facility] [address] [id number] [address] [place] [address], [place] [address] Feb, [facility] [address] [id number] [address] [place] [address], [place] [address] Feb, [facility] [address] [id number] [address] [place] [address], [place] [address] Feb, [facility] [address] [id number] [address] [place] [address], [place] [address] Feb, [facility] [address] [id number] [address] [place] [address], [place] [address] Feb, [facility] [address] [id number] [address] [place] [address], [place] [address] Feb, [facility] [address] [id number] [address] [place] [address], [place] [address] Feb, [facility] [address] [id number] [address] [place] [address], [place] [address] Feb, [facility] [address] [id number] [address] [place] [address], [place] [address] Feb, [facility] [address] [id number] [address] [place] [address], [place] [address] Feb, [facility] [address] [id number] [address] [place] [address], [place] [address] Jan, [facility] [address] [id number] [address] [place] [address], [place] [address] Jan, [facility] [address] [id number] [address] [place] [address], [place] [address] Jan, [facility] [address] [id number] [address] [place] [address], [place] [address] Jan, [facility] [address] [id number] [address] [place] [address], [place] [address] 30 Jan, 2012 [facility] [address] [id number] [address] [place] [id number] Jan, [facility] [address] [id number] [address] [place] [id number] Jan, [facility] [address] [id number] [address] [place] [id number] Jan, [facility] [address] [id number] [address] [place] [id number] 16 Jan, 2012 [facility] [address] [id number] [address] [place] [id number] 15 Jan, 2012 [facility] [address] [id number] [address] [place] [id number] 15 Jan, 2012 [facility] [address] [id number] [address] [place] [id number] Jan, [facility] [address] [id number] [address] [place] [id number] 26 Dec, 2011 [facility] [address] [id number] [address] [place] [id number] 26 Sep, 2011 [facility] [address] [id number] [address] [place] [address], [place] [address] 24 Sep, 2011 [facility] [address] [id number] [address] [place] [address], [place] [address] 23 Sep, 2011 [facility] [address] [id number] [address] [place] [address], [place] [address] 22 Sep, 2011 [facility] [address] [id number] [address] [place] [address], [place] [address] 21 Sep, 2011 [facility] [address] [id number] [address] [place] [address], [place] [address] 20 Sep, 2011 [facility] [address] [id number] [address] [place] [address], [place] [address] 20 Sep, 2011 [facility] [address] [id number] [address] [place] [address], [place] [address] 07 Sep, 2011 [facility] [address] [id number] [address] [place] [address], [place] [address] 06 Sep, 2011 [facility] [address] [id number] [address] [place] [address], [place] [address] 06 Sep, 2011 [facility] [address] [id number] [address] [place] [address], [place] [address] 05 Sep, 2011 [facility] [address] [id number] [address] [place] [address], [place] [address] 23 Nov, 2011 [facility] [address] [id number] [address] [place] [address], [place] [address] 17 Nov, 2011 [facility] [address] [id number] [address] [place] [address], [place] [address] 13 Nov, 2011 [facility] [address] [id number] [address] [place] [address], [place] [address] 10 Nov, 2011 [facility] [address] [id number] [address] [place] [address], [place] [address] 08 Nov, 2011 [facility] [address] [id number] [address] [place] [address], [place] [address] Nov, [facility] [address] [id number] [address] [place] [address], [place] [address] Nov, [facility] [address] [id number] [address] [place] [address], [place] [address] Nov, [facility] [address] [id number] [address] [place] [address], [place] [address] Oct, [facility] [address] [id number] [address] [place] [address], [place] [address] Oct, [facility] [address] [id number] [address] [place] [address], [place] [address] Oct, [facility] [address] [id number] [address] [place] [address], [place] [address] Oct, [facility] [address] [id number] [address] [place] [address], [place] [address] Oct, [facility] [address] [id number] [address] [place] [address], [place] [address] Oct, [facility] [address] [id number] [address] [place] [address], [place] [address] Oct, [facility] [address] [id number] [address] [place] [address], [place] [address] Sep, [facility] [address] [id number] [address] [place] [address], [place] [address] Sep, [facility] [address] [id number] [address] [place] [address], [place] [address] August, [facility] [address] [id number] [address] [place] [address], [place] [address] August, [facility] [address] [id number] [address] [place] [address], [place] [address] August, [facility] [address] [id number] [address] [place] [address], [place] [address] August, [facility] [address] [id number] [address] [place] [address], [place] [address] Jul, [facility] [address] [id number] [address] [place] [address], [place] [address] Jul, [facility] [address] [id number] [address] [place] [address], [place] [address] Jul, [facility] [address] [id number] [address] [place] [address], [place] [address] Jul, [facility] [address] [id number] [address] [place] [address], [place] [address] Jul, [facility] [address] [id number] [address] [place] [address], [place] [address] Jul, [facility] [address] [id number] [address] [place] [address], [place] [address] Jul, [facility] [address] [id number] [address] [place] [address], [place] [address] Jul, [facility] [address] [id number] [address] [place] [address], [place] [address] Jul, [facility] [address] [id number] [address] [place] [address], [place] [address] Jun, [facility] [address] [id number] [address] [place] [address], [place] [address] 19 Jun, 2011 [facility] [address] [id number] [address] [place] [address], [place] [address] 15 Jun, 2011 [facility] [address] [id number] [address] [place] [address], [place] [address] 14 Jun, 2011 [facility] [address] [id number] [address] [place] [address], [place] [address] 12 Jun, 2011 [facility] [address] [id number] [address] [place] [address], [place] [address] 09 Jun, 2011 [facility] [address] [address] [id number] [address] [place] [address], [place] [address] Jun, [facility] [address] [id number] [address] [place] [address], [place] [address] May, [facility] [address] [id number] [address] [place] [address], [place] [address] 24 May, 2011 [facility] [address] [id number] [address] [place] [address], [place] [address] May, [facility] [address] [id number] [address] [place] [address], [place] [address] May, [facility] [address] [id number] [address] [place] [address], [place] [address] May, [facility] [address] [id number] [address] [place] [address], [place] [address] Apr, [facility] [place] [facility] [address] [id number] [address] [place] [address], [place] [address] Apr, [facility] [place] [facility] [address] [id number] [address] [place] [address], [place] [address] Apr, [facility] [place] [facility] [address] [id number] [address] [place] [address], [place] [address] Apr, [facility] [address] [id number] [address] [place] [address], [place] [address] Apr, [facility] [place] [facility] [address] [id number] [address] [place] [address], [place] [address] Mar, [facility] [address] [id number] [address] [place] [address], [place] [address] Mar, [facility] [address] [id number] [address] [place] [address], [place] [address] Mar, [facility] [address] [id number] [address] [place] [address], [place] [address] Mar, [facility] [address] [id number] [address] [place] [address], [place] [address] Mar, [facility] [address] [id number] [address] [place] [address], [place] [address] Mar, [facility] [address] [id number] [address] [place] [address], [place] [address] Mar, [facility] [address] [id number] [address] [place] [address], [place] [address] Feb, [facility] [address] [id number] [address] [place] [address], [place] [address] Feb, [facility] [address] [id number] [address] [place] [address], [place] [address] Feb, [facility] [address] [id number] [address] [place] [address], [place] [address] Feb, [facility] [address] [id number] [address] [place] [address], [place] [address] Jan, [facility] [address] [id number] [address] [place] [address], [place] [address] Jan, [facility] [address] [id number] [address] [place] [address], [place] [address] Jan, [facility] [address] [id number] [address] [place] [address], [place] [address] Jan, [facility] [address] [id number] [address] [place] [address], [place] [address] Nov, [facility] [address] [id number] [address] [place] [id number] Mar, [facility] [address] [id number] [address] [place] [address], [place] [address] Mar, [facility] [address] [id number] [address] [place] [address], [place] [address] Mar, [facility] [address] [id number] [address] [place] [address], [place] [address] Mar, [facility] [address] [id number] [address] [place] [phone] Mar, [facility] [address] [facility] [id number] [address] [place] [address] Mar, [facility] [address] [facility] [id number] [address] [place] [address] Feb, [facility] [address] [facility] [id number] [address] [place] [phone] Feb, [facility] [address] [facility] [id number] [address] [place] [id number] Jan, [facility] [address] [facility] [id number] [address] [place] [phone] Jan, [facility] [address] [facility] [id number] [address] [place] [id number] Jan, IMMUNIZATIONS No Known Immunizations SOCIAL HISTORY [...] History CPAP Noncompliance_ Dr. Madden advises a [employer]. Medical History Bacterial meningitis 12/2016 Medical [...] 09-2015 & 2007 Surgical History Bladder surgery [facility] 03/2016 Surgical History Neurotransmitter placed 10/2017 [...]
--- OUTSIDE RECORDS SUMMARY | 2019-08-01 09:56 | XMS REPORT ---
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 Name Role Phone Migration, Doctor Unavailable Unavailable PROBLEMS Type Condition ICD9-CM Code SXX66-SS Code Onset Dates Condition S tatus SNOMED Code Problem Hypothyroid E03.9 Active 41752307 Problem Generalized anxiety disorder F41.1 A ctive 45545291 Problem Asthma J45.909 Active 417418051 Problem Insomnia G47.00 Active 018104915 Problem Mixed stress and urge urinary incontinence N39.46 Active 330669901 Problem Palpitations R00.2 Active 7771469 2 Problem Essential (primary) hypertension I10 Active 49225050 Problem Fibromyalgia M79.7 Active 4305743 05 Problem Body mass index (BMI) of 40.0-44.9 in adult Z68.41 Active 168948976 Problem Seasonal allergic rhinitis due to pollen J30.1 Active 16954876 Problem Restless leg syndrome G25.81 Active 82674186 Problem Hypercholesterolemia E78.00 Active 54840280 Problem Stage 3 chronic kidney disease N18.3 Active 630194378 Problem Hypertensive heart and chron ic kidney disease with heart failure and stage 1 through stage 4 chronic kidney disease, or unspecified chronic kidney disease I13.0 Active 09377814 Problem Primary osteoarthritis of left knee M17.12 Active 446491806 Problem Low back pain M54.5 Active 342237 009 Problem Chronic pain syndrome G89.4 Active 711247317 Problem Perimenopausal vasomotor symptoms N95.1 Active 835509371 Problem Major depressive disorder, recurrent, moderate F33 .1 Active 641198904 Problem 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.119 Active [id number] ALLERGIES No Information ENCOUNTERS Encounter Location Date Diagnosis [facility] [address] [facility] [place] [address] August, [facility] [address] [facility] [place] [address] Jun, [place] [address] [address] Jun, Fibromyalgia M79.7 ; Stage 3 chronic kid stephanie disease N18.3 ; Essential (primary) hypertension I10 ; Hypertensive heart and chronic kidney disease with heart failure and stage 1 through stage 4 chronic kidney disease, or unspecified chronic kidney disease I13.0 and Lymphadenopathy R59.1 [place] [address] [address] Jun, Chronic pain syndrome G89.4 [place] [address] [address] May, Cystitis N30.90 [place] [address] [address] May, [place] [address] [address] May, [facility] [address] [facility] [id number] [address] [address] May, Chronic pain syndrome G89.4 [place] [address] [address] May, Generalized anxiety disorder F41.1 and M ajor depressive disorder, recurrent episode with anxious distress F33.9 [place] [address] [address] Apr, Major depressive disorder, recurrent, mo derate F33.1 ; Generalized anxiety disorder F41.1 and Dysthymic disorder F34.1 [place] [address] [address] Apr, Chronic pain syndrome G89.4 [place] [address] [address] Apr, Acute pain of right knee M25.561 [place] [address] [address] Apr, [place] [address] [address] Mar, Major depressive disorder, recurrent, mo derate F33.1 ; Generalized anxiety disorder F41.1 and Dysthymic disorder F34.1 [facility] [address] [facility] [id number] [address] [place] [address] Mar, Fluid collection of middle e ar H65.90 and Dizziness R42 [facility] [address] [address] Mar, [facility] [address] [address] Mar, [place] [address] [address] Mar, Essential (primary) hypertension I10 ; S tage 3 chronic kidney disease N18.3 ; Hypercholesterolemia E78.00 ; Asthma J45.909 ; Recurrent UTI N39.0 ; Status post shoulder surgery Z98.890 and Encounter for immunization Z23 [place] [address] [address] Mar, Chronic pain syndrome G89.4 [place] [address] [address] Feb, [place] [address] [address] Feb, [place] [address] [address] Feb, Oral thrush B37.0 and Sore throat J02.9 [place] [address] [address] Feb, Chronic pain syndrome G89.4 [place] [address] [address] Jan, [place] [address] [address] Jan, Chronic pain syndrome G89.4 [place] [address] [address] Jan, Hypercholesterolemia E78.00 [place] [address] [address] Jan, [place] [address] [address] Dec, Chronic kidney disease, stage 4 (severe) N18.4 [place] [address] [address] Dec, Major depressive disorder, recurrent, mo derate F33.1 ; Generalized anxiety disorder F41.1 and Dysthymic disorder F34.1 [place] [address] [address] Dec, Generalized anxiety disorder F41.1 and M shiraor depressive disorder, recurrent episode with anxious distress F33.9 [place] [address] [address] Dec, [place] [address] [address] Dec, [place] [address] [address] Dec, Encounter for immunization Z23 [place] [address] [address] Dec, Diarrhea, unspecified type R19.7 and Hem orrhoids, unspecified hemorrhoid type K64.9 [place] [address] [address] Dec, Encounter for Medicare annual wellness e xam Z00.00 ; Chronic kidney disease, stage 4 (severe) N18.4 ; Encounter for immunization Z23 ; Major depressive disorder, recurrent, moderate F33.1 ; Atherosclerosis of [place] coronary artery of [place] heart with angina pectoris I25.119 ; Asthma J45.909 ; Hypothyroid E03.9 and Fibromyalgia M79.7 [place] [address] [address] Dec, Chronic pain syndrome G89.4 [place] [address] [address] Nov, Major depressive disorder, recurrent, mo derate F33.1 ; Generalized anxiety disorder F41.1 and Dysthymic disorder F34.1 [facility] [address] [address] Nov, [place] [address] [address] Nov, Chronic pain syndrome G89.4 [place] [address] [address] Nov, Restless leg syndrome G25.81 [place] [address] [address] Nov, Pain in right shoulder M25.511 ; Restles s leg syndrome G25.81 ; Other chronic pain G89.29 ; Screening for breast cancer Z12.39 ; Insomnia G47.00 and Morbid obesity E66.01 [facility] [address] [address] Nov, [place] [address] [address] Oct, Major depressive disorder, recurrent, mo derate F33.1 ; Generalized anxiety disorder F41.1 and Dysthymic disorder F34.1 [place] [address] [address] Oct, [place] [address] [address] Oct, Cellulitis of left lower extremity L03.1 16 and Morbid obesity E66.01 [facility] [address] [facility] [id number] [address] [place] [address] Oct, [facility] [address] [facility] [place] [address] Oct, [facility] [address] [address] Oct, Generalized anxiety disorder F41.1 and M ajor depressive disorder, recurrent episode with anxious distress F33.9 [facility] [address] [facility] [id number] [address] [place] [address] Oct, [facility] [address] [place] [id number] [place] [address] Oct, Chronic pain syndrome G89.4 [facility] [address] [address] Oct, Chronic pain syndrome G89.4 [facility] [address] [facility] [id number] [address] [address] Oct, UTI symptoms R39.9 ; Acute c ystitis without hematuria N30.00 and Morbid obesity E66.01 [facility] [address] [address] Oct, [facility] [address] [address] Oct, Chronic pain syndrome G89.4 [facility] [address] [address] Sep, [facility] [address] [address] Sep, Generalized anxiety disorder F41.1 and M shiraor depressive disorder, recurrent episode with anxious distress F33.9 [facility] [address] [address] 17 Sep, 2018 Chronic kidney disease, stage 4 (severe) N18.4 [facility] [address] [place] [id number] [place] [address] Sep, Fibromyalgia M79.7 and Chronic pain synd lisseth G89.4 [facility] [address] [place] [id number] [place] [address] Sep, [facility] [address] [place] [address] Sep, Chronic pain syndrome G89.4 [place] [address] [address] Sep, [place] [address] [address] Sep, Chronic pain syndrome G89.4 ; Fibromyalg ia M79.7 and Morbid obesity E66.01 [place] [address] [address] August, Generalized anxiety disorder F41.1 and M ajor depressive disorder, recurrent episode with anxious distress F33.9 [place] [address] [address] August, Fibromyalgia M79.7 [place] [address] [address] August, Restless leg syndrome G25.81 ; Vitamin D deficiency E55.9 ; Urinary tract infection without hematuria, site unspecified N39.0 ; Pain in right shoulder M25.511 ; Other chronic pain G89.29 ; Biceps tendinitis on right M75.21 and Morbid obesity E66.01 [place] [address] [address] Jul, Urinary tract infection without hematuri a, site unspecified N39.0 and Morbid obesity E66.01 [place] [address] [address] Jul, [place] [address] [address] Jul, [place] [address] [address] Jul, Fibromyalgia M79.7 [place] [address] [address] Jul, Acute pain of right shoulder M25.511 [place] [address] [address] Jul, Acute pain of right shoulder M25.511 and Morbid obesity E66.01 [place] [address] [address] Jun, [place] [address] [address] Jun, Generalized anxiety disorder F41.1 and Tae donovan depressive disorder, recurrent episode with anxious distress F33.9 [place] [address] [address] Jun, [place] [address] [address] Jun, Fibromyalgia M79.7 [facility] [address] [place] [id number] [address] [place] [address] Jun, Acute pain of right shoulder M25.511 ; Acute pain of right hip M25.551 and Morbid obesity E66.01 [place] [address] [address] 11 May, 2018 Burning with urination R30.0 ; Vaginal d ischarge N89.8 ; Chronic kidney disease, stage 4 (severe) N18.4 ; Body mass index (BMI) of 40.0-44.9 in adult Z68.41 and Morbid obesity E66.01 [place] [address] [address] 07 May, 2018 Fibromyalgia M79.7 [place] [address] [address] 06 May, 2018 Generalized anxiety disorder F41.1 and Tae donovan depressive disorder, recurrent episode with anxious distress F33.9 [place] [address] [address] Apr, [place] [address] [address] Apr, Fibromyalgia M79.7 [facility] [address] [facility] [id number] [address] [place] [address] Mar, Acute UTI N39.0 and Dysuria R30.0 [place] [address] [address] 10 Mar, 2018 Fibromyalgia M79.7 [facility] [address] [address] 15 Feb, 2018 [facility] [address] [address] 14 Feb, 2018 [facility] [address] [address] Feb, [facility] [address] [address] Feb, Fibromyalgia M79.7 [place] [address] [address] 08 Feb, 2018 Complicated UTI (urinary tract infection ) N39.0 [facility] [address] [address] Feb, [facility] [address] [address] Jan, Generalized anxiety disorder F41.1 and M shiraor depressive disorder, recurrent episode with anxious distress F33.9 [facility] [address] [facility] [id number] [address] [place] [address] Jan, Acute conjunctivitis of left eye, unspecified acute conjunctivitis type H10.32 [facility] [address] [address] Jan, [facility] [address] [address] Jan, Acute non-recurrent maxillary sinusitis J01.00 ; Dysuria R30.0 ; Perimenopausal vasomotor symptoms N95.1 and Fibromyalgia M79.7 [facility] [address] [address] 28 Dec, 2017 Vitamin D deficiency E55.9 [facility] [address] [address] Dec, Vitamin D deficiency E55.9 [place] [address] [address] Dec, Vitamin D deficiency E55.9 [place] [address] [address] Dec, [place] [address] [address] Dec, Fibromyalgia M79.7 [place] [address] [address] Nov, [place] [address] [address] Nov, [place] [address] [address] Nov, [place] [address] [address] Nov, Fibromyalgia M79.7 ; Vision changes H53. 9 ; Chest wall pain R07.89 and Chronic pain syndrome G89.4 [place] [address] [address] Nov, [place] [address] [address] Nov, Rash of hands R21 [place] [address] [address] Nov, Generalized anxiety disorder F41.1 and M ajor depressive disorder, recurrent episode with anxious distress F33.9 [place] [address] [address] Nov, Fibromyalgia M79.7 [place] [address] [address] Nov, Complicated UTI (urinary tract infection ) N39.0 [place] [address] [address] Oct, [place] [address] [address] Oct, Generalized anxiety disorder F41.1 and Tae donovan depressive disorder, recurrent episode with anxious distress F33.9 [facility] [address] [address] Oct, [facility] [address] [address] Oct, Fibromyalgia M79.7 [facility] [address] [address] Sep, Restless leg syndrome G25.81 and Restles s leg G25.81 [facility] [address] [address] Sep, [facility] [address] [address] Sep, Seasonal allergic rhinitis due to pollen J30.1 ; Screening for breast cancer Z12.31 ; Chest pain at rest R07.9 ; Restless leg syndrome G25.81 ; Essential (primary) hypertension I10 and Depressed F32.9 [facility] [address] [address] August, Fibromyalgia M79.7 [facility] [address] [address] August, [facility] [address] [address] August, [facility] [address] [address] August, Abnormal chest CT R93.8 [facility] [address] [address] August, Generalized anxiety disorder F41.1 and Tae donovan depressive disorder, recurrent episode with anxious distress F33.9 [facility] [address] [address] August, Abnormal chest CT R93.8 [facility] [address] [address] Jul, [place] [address] [place] [id number] [place] [address] Jul, Chronic kidney disease, stage 4 (severe) N18.4 [place] [address] [address] Jul, [facility] [address] [address] Jul, Restless leg G25.81 ; Mixed stress and u rge urinary incontinence N39.46 and Fibromyalgia M79.7 [place] [address] [address] Jul, Chronic kidney disease, stage 4 (severe) N18.4 [place] [address] [address] Jun, Orthostatic hypotension I95.1 ; Chronic kidney disease, stage 4 (severe) N18.4 ; Chest wall discomfort R07.89 and Body mass index (BMI) of 40.0- 44.9 in adult Z68.41 [place] [address] [address] Jun, [place] [address] [address] Jun, Orthostatic hypotension I95.1 [place] [address] [place] [id number] [place] [address] Jun, [facility] [address] [facility] [id number] [address] [address] Jun, Orthostatic hypotension I95. 1 ; Dysuria R30.0 and Acute cystitis without hematuria N30.00 [place] [address] [address] Jun, [facility] [address] [address] Jun, Chronic kidney disease, stage 4 (severe) N18.4 [place] [address] [address] Jun, Fibromyalgia M79.7 [facility] [address] [address] Jun, [facility] [address] [address] Jun, [facility] [address] [address] May, Abnormal chest CT R93.8 and 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 [facility] [address] [address] May, Chronic kidney disease, stage 4 (severe) N18.4 [facility] [address] [address] May, Chronic kidney disease, stage 4 (severe) N18.4 [place] [address] [address] May, Abnormal chest [address] R93.8 [facility] [address] [address] May, [facility] [address] [address] May, [place] [address] [address] May, Generalized anxiety disorder F41.1 and Tae donovan depressive disorder, recurrent episode with anxious distress F33.9 [facility] [address] [address] May, Mood disorder F39 [facility] [address] [address] Apr, [place] [address] [address] Apr, Infected skin lesion L08.[address] rain of right shoulder region, initial encounter S46.911A [place] [address] [address] Apr, Generalized anxiety disorder F41.1 and M ajor depressive disorder, recurrent episode with anxious distress F33.9 [place] [address] [address] Apr, [place] [address] [address] Apr, Recent urinary tract infection Z87.440 a nd Hypothyroid E03.9 [place] [address] [address] Apr, Generalized anxiety disorder F41.1 and M ajor depressive disorder, recurrent episode with anxious distress F33.9 [place] [address] [address] Apr, Recent urinary tract infection Z87.440 [place] [address] [address] Mar, [facility] [address] [place] [id number] [place] [address] Mar, Dysuria R30.0 ; Acute cystit is without hematuria N30.00 and BMI 40.0-44.9, adult Z68.41 [place] [address] [address] Mar, [place] [address] [address] Mar, [place] [address] [address] Mar, Generalized anxiety disorder F41.1 and M shiraor depressive disorder, recurrent episode with anxious distress F33.9 [place] [address] [address] Feb, Conjunctivitis, bacterial H10.9 [place] [address] [address] Feb, [facility] [address] [place] [id number] [address] [place] [address] Feb, Conjunctivitis, bacterial H1 0.9 [facility] [address] [address] Feb, [facility] [address] [facility] [id number] [address] [address] 10 Feb, 2017 Dysuria R30.0 ; Acute cystit is N30.00 and BMI 40.0-44.9, adult Z68.41 [place] [address] [address] Feb, [place] [address] [address] Feb, Generalized anxiety disorder F41.1 and M shiraor depressive disorder, recurrent episode with anxious distress F33.9 [place] [address] [address] Feb, Mood disorder F39 and BMI 40.0-44.9, feli lt Z68.41 [place] [address] [address] Jan, [place] [address] [address] Jan, [place] [address] [address] Jan, Hypothyroid E03.9 [place] [address] [address] Jan, [place] [address] [address] Jan, Chronic kidney disease, unspecified N18. 9 ; Hypokalemia E87.6 ; Essential (primary) hypertension I10 ; Fibromyalgia M79.7 ; Coronary artery disease involving [place] coronary artery of [place] heart, angina presence unspecified I25.10 ; Hypothyroid E03.9 and Encounter for immunization Z23 [place] [address] [address] Jan, Hypothyroid E03.9 [facility] [address] [address] Jan, [facility] [address] [address] 28 Dec, 2016 Vitamin D deficiency E55.9 [facility] [address] [address] 28 Dec, 2016 Primary osteoarthritis of left knee M17. 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 [facility] [address] [address] 19 Dec, 2016 Fibromyalgia M79.7 [place] [address] [address] 18 Dec, 2016 Mood disorder F39 [place] [address] [address] 13 Dec, 2016 [place] [address] [address] 13 Dec, 2016 Generalized anxiety disorder F41.1 and M ajor depressive disorder, recurrent episode with anxious distress F33.9 [place] [address] [address] 11 Dec, 2016 [place] [address] [address] 08 Dec, 2016 Streptococcal meningitis G00.2 [place] [address] [address] 07 Dec, 2016 Streptococcal meningitis G00.2 [place] [address] [address] 07 Dec, 2016 [facility] [address] [address] 06 Dec, 2016 Streptococcal meningitis G00.2 [place] [address] [address] 06 Dec, 2016 [facility] [address] [address] Dec, Major depressive disorder, recurrent epi sode with anxious distress F33.9 [place] [address] [address] Nov, Fever, unspecified fever cause R50.9 [facility] [address] [address] Nov, [place] [address] [address] Nov, Hypothyroid E03.9 [place] [address] [address] Nov, Generalized anxiety disorder F41.1 and M zion depressive disorder, recurrent episode with anxious distress F33.9 [place] [address] [address] Nov, [facility] [address] [id number] Oct, Dental examination Z01.20 [place] [address] [address] Oct, Generalized anxiety disorder F41.1 and M zion depressive disorder, recurrent episode with anxious distress F33.9 [place] [address] [address] Oct, Chronic kidney disease, stage 4 (severe) N18.4 [place] [address] [address] Oct, [place] [address] [address] Oct, Fibromyalgia M79.7 [place] [address] [address] Oct, [place] [address] [address] Oct, Generalized anxiety disorder F41.1 ; Fady or depressive disorder, recurrent episode with anxious distress F33.9 and Bipolar disorder, current episode manic without psychotic features F31.10 [place] [address] [address] Sep, [place] [address] [address] Sep, [place] [address] [address] 15 Sep, 2016 Vitamin D deficiency E55.9 [place] [address] [address] 14 Sep, 2016 Vitamin D deficiency E55.9 [place] [address] [address] Sep, [place] [address] [address] Sep, Chronic kidney disease, stage 4 (severe) N18.4 ; Hypothyroid E03.9 ; Restless leg G25.81 ; Fibromyalgia M79.7 ; Essential (primary) hypertension I10 ; Vitamin D deficiency E55.9 ; Dyspepsia R10.13 ; Anemia in chronic kidney disease D63.1 ; Chronic kidney disease, unspecified N18.9 ; Coronary artery disease involving [place] coronary artery of [place] heart, angina presence unspecified I25.10 ; Screening breast examination Z12.39 and Low back pain M54.5 [place] [address] [address] August, Generalized anxiety disorder F41.1 and M ajor depressive disorder, recurrent episode with anxious distress F33.9 [place] [address] [address] August, Generalized anxiety disorder F41.1 and M ajor depressive disorder, recurrent episode with anxious distress F33.9 [place] [address] [address] August, Fibromyalgia M79.7 [place] [address] [address] Jul, Generalized anxiety disorder F41.1 and M ajor depressive disorder, recurrent episode with anxious distress F33.9 [place] [address] [address] Jul, Fibromyalgia M79.7 [place] [address] [address] Jul, Generalized anxiety disorder F41.1 [place] [address] [address] May, [address] [address] May, Hypothyroid E03.[address] [address] May, Chronic kidney disease, stage 4 (severe) N18.4 ; Hypothyroid E03.9 ; Restless leg G25.81 ; Fibromyalgia M79.7 ; Essential (primary) hypertension I10 ; Vitamin D deficiency E55.9 ; Dyspepsia R10.13 ; Acute non-recurrent maxillary sinusitis J01.00 ; Anemia in chronic kidney disease D63.1 ; Chronic kidney disease, unspecified N18.9 and Coronary artery disease involving [place] coronary artery of [place] heart, angina presence unspecified I25.[address] [address] May, Vitamin D deficiency, unspecified E55.[address] [address] May, Generalized anxiety disorder F41.1 and M ajor depressive disorder, recurrent episode with anxious distress F33.[address] [address] Apr, Pain in right knee M25.561 and Pain in l eft knee M25.[address] [address] Apr, [address] [address] Apr, [address] [id number] [place] [address] Apr, [place] [address] [address] Mar, Generalized anxiety disorder F41.1 and Tae donovan depressive disorder, recurrent episode with anxious distress F33.9 [place] [address] [address] Mar, Generalized anxiety disorder F41.1 and Tae donovan depressive disorder, recurrent episode with anxious distress F33.9 [place] [address] [address] Mar, [place] [address] [address] Mar, [place] [address] [address] Mar, [place] [address] [address] Mar, Asthma J45.909 and Fibromyalgia M79.7 [place] [address] [address] Mar, Chronic kidney disease, stage 4 (severe) N18.4 ; Vitamin D deficiency E55.9 and Essential (primary) hypertension I10 [place] [address] [address] Feb, [place] [address] [address] Feb, Dysuria R30.0 ; Mixed stress and urge ur inary incontinence N39.46 ; Fibromyalgia M79.7 and Chronic kidney disease, stage IV (severe) N18.4 [place] [address] [address] Feb, Chronic kidney disease, stage 4 (severe) N18.4 [place] [address] [address] Feb, Chronic kidney disease, stage 4 (severe) N18.4 [place] [address] [address] Feb, [place] [address] [address] Feb, Vitamin D deficiency, unspecified E55.9 [place] [address] [address] Jan, [facility] [address] [address] Jan, [place] [address] [address] Dec, [place] [address] [address] Dec, Chronic kidney disease, stage 4 (severe) N18.4 [place] [address] [address] Dec, Dysthymic disorder F34.1 and Generalized anxiety disorder F41.1 [place] [address] [address] Dec, [place] [address] [address] Dec, [place] [address] [address] Dec, Dysthymic disorder F34.1 and Generalized anxiety disorder F41.1 [place] [address] [address] 08 Dec, 2015 Dysuria R30.0 ; Chronic kidney disease, stage 4 (severe) N18.4 ; Hypertension I10 ; Dyspepsia R10.13 ; Yeast dermatitis B37.2 ; Palpitations R00.2 ; Hypothyroid E03.9 ; Functional diarrhea K59.1 and Other seasonal allergic rhinitis J30.2 [facility] [address] [facility] [id number] [address] [place] [address] Dec, [facility] [address] [facility] [id number] [address] [place] [address] Nov, Dysuria R30.0 and Stress inc ontinence N39.3 [place] [address] [address] Nov, [facility] [address] [address] Nov, [place] [address] [address] Nov, Osteoarthritis of knees, bilateral M17.[address] [address] Nov, Dysthymic disorder F34.1 and Generalized anxiety disorder F41.1 [place] [address] [address] Nov, [place] [address] [address] Nov, [place] [address] [address] Nov, Urgency of urination R39.15 [place] [address] [address] Nov, [place] [address] [address] Nov, Chronic kidney disease, stage 4 (severe) N18.4 [place] [address] [address] Oct, Hypertension I10 ; Coronary artery disea se involving [place] coronary artery of [place] heart, angina presence unspecified I25.10 ; Palpitations R00.2 ; Hypothyroid E03.9 ; Right foot pain M79.671 ; Functional diarrhea K59.1 and Other seasonal allergic rhinitis J30.2 [place] [address] [address] Oct, Dysthymic disorder F34.1 and Generalized anxiety disorder F41.1 [place] [address] [address] Sep, [facility] [address] [address] Sep, [facility] [address] [address] Sep, [facility] [address] [address] Sep, [facility] [address] [address] Sep, [place] [address] [address] Sep, Dysthymic disorder F34.1 and Generalized anxiety disorder F41.1 [place] [address] [address] 16 Sep, 2015 Asthma with acute exacerbation in adult J45.901 ; Dysuria R30.0 ; Chronic kidney disease, stage 4 (severe) N18.4 and History of anemia Z86.2 [place] [address] [address] 2015 Generalized anxiety disorder F41.1 and D ysthymic disorder F34.1 [place] [address] [address] August, Screening breast examination Z12.39 and Acute recurrent maxillary sinusitis J01.01 [place] [address] [address] August, Osteoarthritis of knees, bilateral M17.0 [place] [address] [address] August, Chronic kidney disease, stage 4 (severe) N18.4 ; Acute non-recurrent maxillary sinusitis J01.00 ; Urinary problem R39.89 ; Bowel habit changes R19.4 ; Functional diarrhea K59.1 and History of colon polyps Z86.010 [place] [address] [address] Jul, Dysthymic disorder F34.1 and Generalized anxiety disorder F41.1 [place] [address] [address] Jul, [place] [address] [address] Jul, Dysthymic disorder F34.1 ; Generalized a nxiety disorder F41.1 and 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 [place] [address] [address] Jul, [place] [address] [address] Jun, [place] [address] [address] Jun, [place] [address] [address] May, [place] [address] [address] May, Dysthymic disorder F34.1 and Generalized anxiety disorder F41.1 [place] [address] [address] Apr, Kidney disease N28.9 [place] [address] [address] Apr, Generalized anxiety disorder F41.1 and D ysthymic disorder F34.1 [place] [address] [address] Apr, Chronic kidney disease, stage 4 (severe) N18.4 [place] [address] [address] Apr, Generalized anxiety disorder F41.1 ; Fady or depression, recurrent F33.9 and Sleep disturbance G47.9 [place] [address] [address] Mar, Generalized anxiety disorder F41.1 and D ysthymic disorder F34.1 [facility] [address] [address] Mar, Generalized anxiety disorder F41.1 ; 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 and Insomnia G47.00 [facility] [address] [address] Mar, [facility] [address] [address] Mar, [facility] [address] [address] Mar, Osteoarthritis of knees, bilateral M17.0 [place] [address] [address] Mar, Hypertension I10 ; Hypothyroid E03.9 ; D ysthymic disorder F34.1 ; Chronic kidney disease, stage 4 (severe) N18.4 and Nausea & vomiting R11.2 [place] [address] [address] Mar, Generalized anxiety disorder F41.1 ; 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 and Insomnia G47.00 [place] [address] [address] Mar, Dehydration E86.0 ; Chronic kidney disea se, stage 4 (severe) N18.4 and Nausea & vomiting R11.2 [facility] [address] [id number] [address] [place] [address] Mar, Gastroenteritis K52.9 [facility] [address] [place] [id number] [place] [address] Mar, [facility] [address] [address] Mar, [facility] [address] [address] Feb, Dysthymic disorder F34.1 and Generalized anxiety disorder F41.1 [facility] [place] [address] [address] Jan, UTI (urinary tract infection) N39.0 ; As thma J45.909 ; Coronary artery disease involving [place] coronary artery of [place] heart, angina presence unspecified I25.10 ; Hypertension I10 ; Hypothyroid E03.9 ; Vitamin D deficiency E55.9 ; Insomnia G47.00 ; Palpitations R00.2 ; Depressed F32.9 ; Restless leg G25.81 and Anxiety F41.[address] [address] Jan, Dysthymic disorder F34.1 and Generalized anxiety disorder F41.[address] [address] Jan, [address] [address] 30 Dec, [address] [address] Dec, Alkalosis 276.3 ; Chronic kidney disease , Stage IV (severe) 585.4 ; Hyperpotassemia 276.7 ; Secondary hyperparathyroidism, renal 588.81 ; Proteinuria 791.0 ; Unspecified vitamin D deficiency 268.9 ; Anemia in chronic kidney disease 285.21 ; Other and unspecified hyperlipidemia 272.4 ; Hypertension, essential, benign 401.1 and Chronic kidney disease (CKD), stage III (moderate) 585.[address] [address] Dec, [address] [address] 16 Dec, 2014 Depressive disorder, not elsewhere class ified 311 and Generalized anxiety disorder 300.[address] [address] 10 Dec, [address] [address] 08 Dec, [address] [address] Nov, Depressive disorder, not elsewhere class ified 311 and Generalized anxiety disorder 300.02 [place] [address] [address] Nov, Arthritis of both knees 716.96 [place] [address] [address] Nov, PAF (paroxysmal atrial fibrillation) 427 .31 ; CAD (coronary artery disease) 414.00 ; Chest pain 786.50 and Chronic kidney disease (CKD) stage G4/A1, severely decreased glomerular filtration rate (GFR) between 15-29 mL/min/1.73 square meter and albuminuria creatinine ratio less than 30 mg/g 585.[address] [address] Oct, Coronary atherosclerosis of unspecified type of vessel, [place] or graft 414.00 ; Chronic kidney disease, Stage IV (severe) 585.4 ; Hypertension 401.9 and Edema 782.3 [place] [address] [address] Oct, Depressive disorder, not elsewhere class ified 311 and Generalized anxiety disorder 300.[address] [address] Oct, Depressive disorder, not elsewhere class ified 311 and Generalized anxiety disorder 300.02 [place] [address] [address] Oct, [address] [address] Oct, [place] [address] [address] Sep, [address] [address] Sep, Chronic kidney disease, Stage IV (severe ) 585.4 [place] [address] [address] Sep, [place] [address] [place] [address] Sep, Coronary atherosclerosis of unspecified type of vessel, [place] or graft 414.00 ; Hypertension 401.9 ; Edema 782.3 and Hypothyroidism 244.9 [facility] [address] [address] Sep, Coronary atherosclerosis of unspecified type of vessel, [place] or graft 414.00 ; Hypertension 401.9 ; Fibromyalgia 729.1 ; Edema 782.3 ; Hypothyroidism 244.9 and Anemia 285.9 [facility] [address] [address] Sep, Anxiety disorder, unspecified 300.00 and Depressive disorder, not elsewhere classified [address] [address] Sep, [address] [address] August, Generalized anxiety disorder 300.[address] [address] August, Closed fracture of lateral malleolus [address] [address] Jul, [facility] [address] [place] [address] Jul, [place] [address] [address] Jun, [facility] [address] [address] Jun, [facility] [address] [address] Jun, [facility] [address] [place] [address] Jun, [facility] [address] [address] Jun, [facility] [address] [place] [address] Jun, [facility] [place] [facility] [address] [facility] [id number] [place] [address] May, [facility] [place] [facility] [address] [facility] [id number] [place] [address] May, 2014 [facility] [place] [facility] [address] [id number] [place] [address] 18 May, 2014 [facility] [place] [facility] [address] [id number] [place] [address] May, 2014 [facility] [place] [facility] [address] [id number] [place] [address] 16 May, 2014 [facility] [place] [facility] [address] [id number] [place] [address] 16 May, 2014 [facility] [place] [facility] [address] [id number] [place] [address] May, 2014 [facility] [place] [facility] [address] [id number] [place] [address] 13 May, 2014 [facility] [place] [facility] [address] [id number] [place] [address] 10 May, 2014 [facility] [place] [facility] [address] [id number] [place] [address] 10 May, 2014 [facility] [place] [facility] [address] [id number] [place] [address] Apr, [facility] [place] [facility] [address] [id number] [place] [address] Apr, [facility] [place] [facility] [address] [id number] [place] [address] Mar, [facility] [place] [facility] [address] [id number] [place] [address] Mar, [facility] [place] [facility] [address] [id number] [place] [address] Mar, [facility] [place] [facility] [address] [id number] [place] [address] Mar, [facility] [place] [facility] [address] [id number] [place] [address] 15 Mar, 2014 [facility] [place] [facility] [address] [id number] [place] [address] 15 Mar, 2014 [facility] [place] [facility] [address] [id number] [place] [address] Mar, [facility] [place] [facility] [address] [id number] [place] [address] Feb, [facility] [place] [facility] [address] [facility] [id number] [place] [address] Feb, [facility] [place] [facility] [address] [id number] [place] [address] Feb, [facility] [place] [facility] [address] [id number] [place] [address] Jan, [facility] [place] [facility] [address] [id number] [place] [address] Jan, [facility] [place] [facility] [address] [id number] [place] [address] Jan, [facility] [place] [facility] [address] [id number] [place] [address] Jan, [facility] [place] [facility] [address] [id number] [place] [address] Jan, [facility] [place] [facility] [address] [id number] [place] [address] Jan, [facility] [place] [facility] [address] [id number] [place] [address] Jan, 2013 [facility] [place] [facility] [address] [id number] [place] [address] Jan, [facility] [place] [facility] [address] [id number] [place] [address] Jan, [facility] [place] [facility] [address] [id number] [place] [address] Jan, 2013 [facility] [place] [facility] [address] [id number] [place] [address] Nov, [facility] [place] [facility] [address] [id number] [facility] [place] [address] Nov, [facility] [place] [facility] [address] [facility] [id number] [facility] [place] [address] Nov, [facility] [place] [facility] [address] [id number] [facility] [place] [address] Oct, [facility] [place] [facility] [address] [facility] [id number] [facility] [place] [address] Oct, [facility] [place] [facility] [address] [facility] [id number] [facility] [place] [address] Oct, [facility] [place] [facility] [address] [id number] [place] [address] Oct, [facility] [place] [facility] [address] [id number] [place] [address] Oct, [facility] [place] [facility] [address] [id number] [place] [address] Oct, [facility] [place] [facility] [address] [facility] [id number] [facility] [place] [address] Oct, [facility] [place] [facility] [address] [id number] [place] [address] Oct, [facility] [place] [facility] [address] [id number] [place] [address] Oct, [facility] [place] [facility] [address] [id number] [facility] [place] [address] Sep, [facility] [place] [facility] [address] [facility] [id number] [facility] [place] [address] Sep, [facility] [place] [facility] [address] [id number] [place] [address] Sep, [facility] [place] [facility] [address] [facility] [id number] [place] [address] Sep, [facility] [place] [facility] [address] [id number] [place] [address] Sep, [facility] [place] [facility] [address] [id number] [place] [address] Sep, [facility] [place] [facility] [address] [id number] [place] [address] Sep, [facility] [place] [facility] [address] [id number] [place] [address] Sep, [facility] [place] [facility] [address] [id number] [place] [address] Sep, [facility] [place] [facility] [address] [id number] [place] [address] August, [facility] [place] [facility] [address] [id number] [place] [address] August, [facility] [place] [facility] [address] [id number] [place] [address] August, [facility] [place] [facility] [address] [id number] [place] [address] August, [facility] [place] [facility] [address] [id number] [place] [address] August, [facility] [place] [facility] [address] [id number] [place] [address] August, [facility] [place] [facility] [address] [id number] [place] [address] Jul, [facility] [place] [facility] [address] [id number] [place] [address] Jul, [facility] [place] [facility] [address] [id number] [place] [address] Jul, [facility] [place] [facility] [address] [id number] [place] [address] Jul, [facility] [place] [facility] [address] [id number] [place] [address] Jul, [facility] [place] [facility] [address] [id number] [place] [address] Jul, [facility] [place] [facility] [address] [id number] [place] [address] Jun, [facility] [place] [facility] [address] [id number] [place] [address] Jun, [facility] [address] [id number] [facility] [place] [address] May, [facility] [address] [id number] [place] [address] May, [facility] [address] [id number] [place] [address] May, [facility] [address] [id number] [place] [address] May, [facility] [address] [id number] [place] [address] Apr, [facility] [address] [id number] [place] [address] Apr, [facility] [address] [id number] [place] [address] Mar, [facility] [address] [id number] [place] [address] 18 Mar, 2013 [facility] [address] [id number] [place] [address] 17 Mar, 2013 [facility] [address] [id number] [place] [address] 17 Mar, 2013 [facility] [address] [id number] [place] [address] 05 Mar, 2013 [facility] [address] [id number] [place] [address] 05 Mar, 2013 [facility] [address] [id number] [place] [address] 20 Feb, 2013 [facility] [address] [id number] [place] [address] 20 Feb, 2013 [facility] [address] [id number] [place] [address] 14 Feb, 2013 [facility] [address] [id number] [place] [address] 14 Feb, 2013 [facility] [address] [id number] [place] [address] Feb, [facility] [address] [id number] [place] [address] Feb, [facility] [address] [id number] [place] [address] Jan, [facility] [address] [id number] [place] [address] Jan, [facility] [address] [id number] [place] [address] Jan, [facility] [address] [id number] [place] [address] Jan, [facility] [address] [id number] [place] [address] Jan, [facility] [address] [id number] [place] [address] Jan, [facility] [address] [id number] [place] [address] Dec, [facility] [address] [id number] [place] [address] Dec, [facility] [address] [id number] [place] [address] Nov, [facility] [address] [id number] [place] [address] Nov, [facility] [address] [id number] [place] [address] Oct, [facility] [id number] [place] [address] Oct, [facility] [address] [id number] [place] [address] Oct, [facility] [address] [id number] [place] [address] Oct, [facility] [address] [id number] [place] [address] Oct, [facility] [address] [id number] [place] [address] Oct, [facility] [address] [id number] [place] [address] Sep, [facility] [address] [id number] [place] [address] Sep, [facility] [address] [id number] [place] [address] Sep, [facility] [address] [id number] [place] [address] Sep, [facility] [address] [id number] [place] [address] August, [facility] [address] [id number] [place] [address] August, [facility] [address] [id number] [place] [address] August, [facility] [address] [id number] [place] [address] August, [facility] [address] [id number] [place] [address] August, [facility] [address] [id number] [place] [address] Jul, [facility] [address] [id number] [place] [address] Jul, [facility] [address] [id number] [place] [address] 15 Jul, 2012 [facility] [address] [id number] [place] [address] Jul, [facility] [address] [id number] [place] [address] Jul, [facility] [address] [id number] [place] [address] 08 Jul, 2012 [facility] [address] [id number] [place] [address] Jul, [facility] [address] [id number] [place] [address] Jul, [facility] [address] [id number] [place] [address] Jul, [facility] [address] [id number] [place] [address] Jul, [facility] [address] [facility] [id number] [place] [id number] Jun, [facility] [address] [id number] [place] [address] Jun, [facility] [address] [id number] [place] [address] Jun, [facility] [address] [id number] [place] [address] Jun, [facility] [address] [id number] [place] [address] Jun, [facility] [address] [id number] [place] [address] May, [facility] [address] [id number] [place] [address] May, [facility] [address] [id number] [place] [address] May, [facility] [address] [id number] [place] [address] Apr, [facility] [address] [id number] [place] [address] Apr, [facility] [address] [id number] [place] [address] Apr, [facility] [address] [id number] [place] [address] Apr, [facility] [address] [id number] [place] [address] Apr, [facility] [address] [id number] [place] [address] Apr, [facility] [address] [id number] [place] [address] Mar, [facility] [address] [id number] [place] [address] Mar, [facility] [address] [id number] [place] [address] Mar, [facility] [address] [id number] [place] [address] Mar, [facility] [address] [id number] [place] [address] Feb, [facility] [address] [id number] [place] [address] Feb, [facility] [address] [id number] [place] [address] Feb, [facility] [address] [id number] [place] [address] Feb, [facility] [address] [id number] [place] [address] Feb, [facility] [address] [id number] [place] [address] Feb, [facility] [address] [id number] [place] [address] Feb, [facility] [address] [id number] [place] [address] Feb, [facility] [id number] [place] [address] Feb, [facility] [address] [id number] [place] [address] Feb, [facility] [address] [id number] [place] [address] Feb, [facility] [address] [id number] [place] [address] Feb, [facility] [address] [id number] [place] [address] Feb, [facility] [address] [id number] [place] [address] Feb, [facility] [address] [id number] [place] [address] Feb, [facility] [address] [id number] [place] [address] Feb, [facility] [address] [id number] [place] [address] Jan, [facility] [address] [id number] [place] [address] Jan, [facility] [id number] [place] [address] Jan, [facility] [address] [id number] [place] [address] Jan, [facility] [address] [id number] [place] [address] 30 Jan, 2012 [facility] [address] [id number] [place] [address] Jan, [facility] [address] [id number] [place] [address] Jan, [facility] [address] [id number] [place] [address] 16 Jan, 2012 [facility] [address] [id number] [place] [address] 16 Jan, 2012 [facility] [id number] [place] [address] 15 Jan, 2012 [facility] [address] [id number] [place] [address] 15 Jan, 2012 [facility] [address] [id number] [place] [address] Jan, [facility] [address] [id number] [place] [address] 26 Sep, 2011 [facility] [address] [facility] [id number] [place] [address] 26 Sep, 2011 [facility] [address] [id number] [place] [address] 24 Sep, 2011 [facility] [address] [id number] [place] [address] 23 Sep, 2011 [facility] [address] [facility] [id number] [place] [address] 22 Sep, 2011 [facility] [address] [id number] [place] [address] 21 Dec, 2011 [facility] [address] [id number] [place] [address] 20 Dec, 2011 [facility] [address] [id number] [place] [address] 20 Dec, 2011 [facility] [address] [id number] [place] [address] 07 Sep, 2011 [facility] [address] [id number] [place] [address] 06 Sep, 2011 [facility] [address] [id number] [place] [address] 06 Sep, 2011 [facility] [address] [id number] [place] [address] 05 Sep, 2011 [facility] [address] [id number] [place] [address] 23 Nov, 2011 [facility] [address] [id number] [place] [address] 17 Nov, 2011 [facility] [address] [id number] [place] [address] 13 Nov, 2011 [facility] [address] [id number] [place] [address] 10 Nov, 2011 [facility] [address] [id number] [place] [address] Nov, [facility] [address] [id number] [place] [address] Nov, [facility] [address] [id number] [place] [address] Nov, [facility] [address] [id number] [place] [address] Nov, [facility] [address] [id number] [place] [address] Oct, [facility] [address] [id number] [place] [address] Oct, [facility] [address] [id number] [place] [address] Oct, [facility] [address] [id number] [place] [address] Oct, [facility] [address] [id number] [place] [address] Oct, [facility] [address] [id number] [place] [address] Oct, [facility] [address] [id number] [place] [address] Oct, [facility] [address] [id number] [place] [address] Sep, [facility] [address] [id number] [place] [address] Sep, [facility] [address] [id number] [place] [address] August, [facility] [address] [id number] [place] [address] August, [facility] [address] [id number] [place] [address] August, [facility] [address] [id number] [place] [address] August, [facility] [address] [id number] [place] [address] Jul, [facility] [address] [id number] [place] [address] Jul, [facility] [address] [id number] [place] [address] Jul, [facility] [address] [id number] [place] [address] Jul, [facility] [address] [id number] [place] [address] Jul, [facility] [address] [id number] [place] [address] Jul, [facility] [address] [id number] [place] [address] Jul, [facility] [address] [id number] [place] [address] Jul, [facility] [address] [id number] [place] [address] Jul, [facility] [address] [id number] [place] [address] Jun, [facility] [address] [id number] [place] [address] Jun, [facility] [address] [id number] [place] [address] 15 Jun, 2011 [facility] [address] [id number] [place] [address] 14 Jun, 2011 [facility] [address] [id number] [place] [address] 12 Jun, 2011 [facility] [address] [id number] [place] [address] Jun, [facility] [address] [id number] [place] [address] Jun, [facility] [address] [id number] [place] [address] May, [facility] [address] [id number] [place] [address] May, [facility] [address] [id number] [place] [address] May, [facility] [address] [id number] [place] [address] May, [facility] [address] [id number] [place] [address] May, [facility] [address] [id number] [place] [address] Apr, [facility] [address] [id number] [place] [address] Apr, [facility] [address] [id number] [place] [address] Apr, [facility] [address] [id number] [place] [address] Apr, [facility] [address] [id number] [place] [address] Apr, [facility] [address] [id number] [place] [address] Mar, [facility] [address] [id number] [place] [address] Mar, [facility] [address] [id number] [place] [address] Mar, [facility] [address] [id number] [place] [address] Mar, [facility] [address] [id number] [place] [address] Mar, [facility] [address] [id number] [place] [address] Mar, [facility] [address] [id number] [place] [address] Mar, [facility] [address] [id number] [place] [address] 11 Feb, 2011 [facility] [address] [id number] [place] [address] Feb, [facility] [address] [id number] [place] [address] Feb, [facility] [address] [id number] [place] [address] Feb, [facility] [address] [id number] [place] [address] Jan, [facility] [address] [id number] [place] [address] Jan, [facility] [address] [id number] [place] [address] Jan, [facility] [address] [id number] [place] [address] Jan, [facility] [address] [id number] [place] [address] Nov, [facility] [address] [id number] [place] [address] Mar, [facility] [address] [id number] [place] [address] Mar, [facility] [address] [id number] [place] [address] Mar, [facility] [address] [id number] [place] [address] Mar, [facility] [address] [id number] [place] [address] Mar, [facility] [address] [id number] [place] [address] Mar, [facility] [address] [id number] [place] [address] Feb, [facility] [address] [id number] [place] [address] Feb, [facility] [address] [id number] [place] [address] Jan, [facility] [address] [id number] [place] [address] Jan, [facility] [address] [facility] [id number] [place] [address] Jan, IMMUNIZATIONS No Known Immunizations SOCIAL HISTORY [...] History CPAP Noncompliance_ Dr. Madden advises a Sassor driving. Medical History Bacterial meningitis 12/2016 Medical [...] 09-2015 & 2007 Surgical History Bladder surgery [facility] 03/2016 Surgical History Neurotransmitter placed 10/2017 Surgical History retninal repair 12/31/2017 Surgical History cataract surgery 2018 Surgical History cataract surgery 2018 Surgical History SCS trial x7 days 2018 Surgical History SCS implant removed. 2019 Surgical History right shoulder surgery to repair torn te ndons 02/2019 Hospitalization History Surgeries Only Hospitalization History 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 Hospitalization History sepsis, UTI, headache 08/03/2018-
--- OUTSIDE RECORDS SUMMARY | 2019-08-01 09:57 | XMS REPORT ---
Author Author JahLola Doctor Organization [facility] Address Unknown Phone Unavailable Care Team Providers Care Radio Time Buyer Name Role Phone Migration, Doctor Unavailable Unavailable PROBLEMS Type Condition ICD9-CM Code [id number] Code Onset Dates Condition S tatus SNOMED Code Problem Generalized anxiety disorder F41.1 A ctive 49488202 Problem Low back pain M54.5 Active 087849 009 Problem Insomnia G47.00 Active 943199416 Problem Hypothyroid E03.9 Active 48628761 Problem Palpitations R00.2 Active 2235993 2 Problem Asthma J45.909 Active 138369951 Problem Mixed stress and urge urinary incontinence N39.46 Active 130875522 Problem Fibromyalgia M79.7 Active 0065651 05 Problem Stage 3 chronic kidney disease N18.3 Active 232976213 Problem Body mass index (BMI) of 40.0-44.9 in adult Z68.41 Active 585569610 Problem Seasonal allergic rhinitis due to pollen J30.1 Active 11121312 Problem 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 Active 2028735171008 Problem Primary osteoarthritis of left knee M17.12 Active 884593993 Problem Hypercholesterolemia E78.00 Active 94602118 Problem Essential (primary) hypertension I10 Active 88070379 Problem Restless leg syndrome G25.81 Active 32911483 Problem Chronic pain syndrome G89.4 Active 579090296 Problem Perimenopausal vasomotor symptoms N95.1 Active 550096968 Problem Major depressive disorder, recurrent, moderate F33 .1 Active 010206623 ALLERGIES No Information ENCOUNTERS Encounter Location Date Diagnosis [facility] [id number] [place] [address] Jun, [facility] [address] [address] Jun, [facility] [id number] [place] [address] Jun, Chronic pain syndrome G89.4 [place] [address] [address] May, Cystitis N30.90 [place] [address] [address] May, [place] [address] [address] May, [facility] [address] [facility] [id number] [address] [place] [address] May, Chronic pain syndrome G89.4 [place] [address] [address] May, Generalized anxiety disorder F41.1 and M shiraor depressive disorder, recurrent episode with anxious distress F33.9 [place] [address] [address] Apr, Major depressive disorder, recurrent, mo derate F33.1 ; Generalized anxiety disorder F41.1 and Dysthymic disorder F34.1 [place] [address] [address] Apr, Chronic pain syndrome G89.4 [place] [address] [address] Apr, Acute pain of right knee M25.561 [place] [address] [address] Apr, [place] [address] [address] Mar, Major depressive disorder, recurrent, mo derate F33.1 ; Generalized anxiety disorder F41.1 and Dysthymic disorder F34.1 [facility] [address] [facility] [id number] [address] [address] Mar, Fluid collection of middle e ar H65.90 and Dizziness R42 [place] [address] [address] Mar, [place] [address] [address] Mar, [place] [address] [address] Mar, Essential (primary) hypertension I10 ; S tage 3 chronic kidney disease N18.3 ; Hypercholesterolemia E78.00 ; Asthma J45.909 ; Recurrent UTI N39.0 ; Status post shoulder surgery Z98.890 and Encounter for immunization Z23 [place] [address] [address] Mar, Chronic pain syndrome G89.4 [place] [address] [address] Feb, [place] [address] [address] Feb, [place] [address] [address] Feb, Oral thrush B37.0 and Sore throat J02.9 [place] [address] [address] Feb, Chronic pain syndrome G89.4 [place] [address] [address] Jan, [place] [address] [address] Jan, Chronic pain syndrome G89.4 [place] [address] [address] Jan, Hypercholesterolemia E78.00 [place] [address] [address] Jan, [place] [address] [address] Dec, Chronic kidney disease, stage 4 (severe) N18.4 [place] [address] [address] Dec, Major depressive disorder, recurrent, mo derate F33.1 ; Generalized anxiety disorder F41.1 and Dysthymic disorder F34.1 [place] [address] [address] Dec, Generalized anxiety disorder F41.1 and Tae donovan depressive disorder, recurrent episode with anxious distress F33.9 [place] [address] [address] Dec, [place] [address] [address] Dec, [place] [address] [address] Dec, Encounter for immunization Z23 [address] [address] Dec, Diarrhea, unspecified type R19.7 and Hem orrhoids, unspecified hemorrhoid type K64.[address] [address] Dec, Encounter for Medicare annual wellness e xam Z00.00 ; Chronic kidney disease, stage 4 (severe) N18.4 ; Encounter for immunization Z23 ; Major depressive disorder, recurrent, moderate F33.1 ; Atherosclerosis of [place] coronary artery of [place] heart with angina pectoris I25.119 ; Asthma J45.909 ; Hypothyroid E03.9 and Fibromyalgia M79.[address] [address] Dec, Chronic pain syndrome G89.[address] [address] Nov, Major depressive disorder, recurrent, mo derate F33.1 ; Generalized anxiety disorder F41.1 and Dysthymic disorder F34.1 [place] [address] [address] Nov, [place] [address] [address] Nov, Chronic pain syndrome G89.4 [place] [address] [address] Nov, Restless leg syndrome G25.81 [place] [address] [address] Nov, Pain in right shoulder M25.511 ; Restles s leg syndrome G25.81 ; Other chronic pain G89.29 ; Screening for breast cancer Z12.39 ; Insomnia G47.00 and Morbid obesity E66.01 [place] [address] [address] Nov, [place] [address] [address] Oct, Major depressive disorder, recurrent, mo derate F33.1 ; Generalized anxiety disorder F41.1 and Dysthymic disorder F34.1 [place] [address] [address] Oct, [place] [address] [address] Oct, Cellulitis of left lower extremity L03.1 16 and Morbid obesity E66.01 [facility] [address] [id number] [address] [place] [address] Oct, [place] [address] [address] Oct, [place] [address] [address] Oct, Generalized anxiety disorder F41.1 and M ajor depressive disorder, recurrent episode with anxious distress F33.9 [facility] [address] [id number] [address] [place] [address] Oct, [place] [address] [address] Oct, Chronic pain syndrome G89.4 [place] [address] [address] Oct, Chronic pain syndrome G89.4 [facility] [address] [facility] [id number] [address] [place] [address] Oct, UTI symptoms R39.9 ; Acute c ystitis without hematuria N30.00 and Morbid obesity E66.01 [facility] [id number] [place] [address] Oct, [facility] [address] [address] Oct, Chronic pain syndrome G89.4 [facility] [address] [address] Sep, [facility] [address] [address] Sep, Generalized anxiety disorder F41.1 and Tae donovan depressive disorder, recurrent episode with anxious distress F33.9 [facility] [address] [address] Sep, Chronic kidney disease, stage 4 (severe) N18.4 [facility] [address] [address] Sep, Fibromyalgia M79.7 and Chronic pain synd lisseth G89.4 [facility] [id number] [place] [address] Sep, [address] [place] [address] Sep, Chronic pain syndrome G89.4 [facility] [id number] [place] [address] Sep, [facility] [address] [address] Sep, Chronic pain syndrome G89.4 ; Fibromyalg ia M79.7 and Morbid obesity E66.01 [facility] [id number] [place] [address] August, Generalized anxiety disorder F41.1 and Tae donovan depressive disorder, recurrent episode with anxious distress F33.9 [address] [address] August, Fibromyalgia M79.7 [place] [address] [address] August, Restless leg syndrome G25.81 ; Vitamin D deficiency E55.9 ; Urinary tract infection without hematuria, site unspecified N39.0 ; Pain in right shoulder M25.511 ; Other chronic pain G89.29 ; Biceps tendinitis on right M75.21 and Morbid obesity E66.01 [place] [address] [address] Jul, Urinary tract infection without hematuri a, site unspecified N39.0 and Morbid obesity E66.01 [place] [address] [address] Jul, [address] [place] [address] [address] Jul, [place] [address] [address] Jul, Fibromyalgia M79.7 [address] [place] [address] [address] Jul, Acute pain of right shoulder M25.511 [place] [address] [address] Jul, Acute pain of right shoulder M25.511 and Morbid obesity E66.01 [address] [place] [address] [address] Jun, [place] [address] [address] 14 Jun, 2018 Generalized anxiety disorder F41.1 and M shiraor depressive disorder, recurrent episode with anxious distress F33.9 [address] [place] [address] [address] Jun, [place] [address] [address] Jun, Fibromyalgia M79.7 [facility] [address] [place] [address] 04 Jun, 2018 Acute pain of right shoulder M25.511 ; Acute pain of right hip M25.551 and Morbid obesity E66.01 [address] [place] [address] [address] 11 May, 2018 Burning with urination R30.0 ; Vaginal d ischarge N89.8 ; Chronic kidney disease, stage 4 (severe) N18.4 ; Body mass index (BMI) of 40.0-44.9 in adult Z68.41 and Morbid obesity E66.01 [address] [place] [address] [address] 07 May, 2018 Fibromyalgia M79.7 [address] [place] [address] [address] 06 May, 2018 Generalized anxiety disorder F41.1 and M ajor depressive disorder, recurrent episode with anxious distress F33.9 [address] [address] [address] Apr, [address] [place] [address] [address] Apr, Fibromyalgia M79.7 [facility] [address] [id number] [address] [place] [address] Mar, Acute UTI N39.0 and Dysuria R30.0 [address] [place] [address] [address] Mar, Fibromyalgia M79.7 [address] [place] [address] [address] 15 Feb, 2018 [address] [place] [address] 14 Feb, 2018 [address] [place] [address] [address] Feb, [place] [address] [address] Feb, Fibromyalgia M79.7 [facility] [address] [address] Feb, Complicated UTI (urinary tract infection ) N39.0 [facility] [address] [address] Feb, [facility] [address] [address] Jan, Generalized anxiety disorder F41.1 and M ajor depressive disorder, recurrent episode with anxious distress F33.9 [facility] [address] [facility] [id number] [address] [place] [address] Jan, Acute conjunctivitis of left eye, unspecified acute conjunctivitis type H10.32 [facility] [address] [address] Jan, [address] [address] Jan, Acute non-recurrent maxillary sinusitis J01.00 ; Dysuria R30.0 ; Perimenopausal vasomotor symptoms N95.1 and Fibromyalgia M79.7 [address] [address] Dec, Vitamin D deficiency E55.9 [address] [address] Dec, Vitamin D deficiency E55.9 [address] [address] 24 Dec, 2017 Vitamin D deficiency E55.9 [address] [address] 12 Dec, 2017 [address] [address] Dec, Fibromyalgia M79.7 [address] [address] Nov, [facility] [address] [address] Nov, [facility] [address] [address] Nov, [facility] [address] [address] Nov, Fibromyalgia M79.7 ; Vision changes H53. 9 ; Chest wall pain R07.89 and Chronic pain syndrome G89.4 [address] [address] Nov, [address] [address] Nov, Rash of hands R21 [address] [address] Nov, Generalized anxiety disorder F41.1 and M shiraor depressive disorder, recurrent episode with anxious distress F33.9 [address] [address] Nov, Fibromyalgia M79.7 [address] [address] Nov, Complicated UTI (urinary tract infection ) N39.0 [address] [address] Oct, [facility] [address] [address] Oct, Generalized anxiety disorder F41.1 and M zion depressive disorder, recurrent episode with anxious distress F33.9 [address] [address] Oct, [facility] [address] [address] Oct, Fibromyalgia M79.7 [facility] [address] [address] Sep, Restless leg syndrome G25.81 and Restles s leg G25.81 [address] [address] Sep, [address] [place] [address] Sep, Seasonal allergic rhinitis due to pollen J30.1 ; Screening for breast cancer Z12.31 ; Chest pain at rest R07.9 ; Restless leg syndrome G25.81 ; Essential (primary) hypertension I10 and Depressed F32.9 [address] [address] August, Fibromyalgia M79.7 [address] [address] August, [address] [address] August, [address] [address] August, Abnormal chest CT R93.8 [address] [address] August, Generalized anxiety disorder F41.1 and M shiraor depressive disorder, recurrent episode with anxious distress F33.9 [address] [address] August, Abnormal chest CT R93.8 [address] [address] Jul, [address] [address] [address] Jul, Chronic kidney disease, stage 4 (severe) N18.4 [address] [address] Jul, [address] [address] Jul, Restless leg G25.81 ; Mixed stress and u rge urinary incontinence N39.46 and Fibromyalgia M79.7 [facility] [id number] [place] [address] Jul, Chronic kidney disease, stage 4 (severe) N18.4 [address] [place] [address] Jun, Orthostatic hypotension I95.1 ; Chronic kidney disease, stage 4 (severe) N18.4 ; Chest wall discomfort R07.89 and Body mass index (BMI) of 40.0- 44.9 in adult Z68.41 [address] [place] [address] Jun, [address] [place] [address] Jun, Orthostatic hypotension I95.1 [address] [place] [address] Jun, [facility] [address] [facility] [id number] [address] [address] Jun, Orthostatic hypotension I95. 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 [address] [address] May, Chronic kidney disease, stage 4 (severe) N18.4 [facility] [address] [address] May, Chronic kidney disease, stage 4 (severe) N18.4 [facility] [address] [address] May, Abnormal chest [address] R93.8 [facility] [address] [address] May, [address] [place] [address] May, [facility] [address] [address] May, Generalized anxiety disorder F41.1 and M zion depressive disorder, recurrent episode with anxious distress F33.9 [address] [address] [address] May, Mood disorder F39 [address] [address] Apr, [address] [place] [address] [address] Apr, Infected skin lesion L08.[address] rain of right shoulder region, initial encounter S46.911A [address] [place] [address] Apr, Generalized anxiety disorder F41.1 and M zion depressive disorder, recurrent episode with anxious distress F33.9 [address] [address] Apr, [address] [place] [address] [address] Apr, Recent urinary tract infection Z87.440 a nd Hypothyroid E03.9 [address] [place] [address] [address] Apr, Generalized anxiety disorder F41.1 and M shiraor depressive disorder, recurrent episode with anxious distress F33.9 [address] [place] [address] [address] Apr, Recent urinary tract infection Z87.440 [address] [place] [address] Mar, [facility] [address] [facility] [id number] [address] [place] [address] Mar, Dysuria R30.0 ; Acute cystit is without hematuria N30.00 and BMI 40.0-44.9, adult Z68.41 [address] [place] [address] [address] Mar, [place] [address] [address] Mar, [place] [address] [address] Mar, Generalized anxiety disorder F41.1 and M shiraor depressive disorder, recurrent episode with anxious distress F33.9 [place] [address] [address] Feb, Conjunctivitis, bacterial H10.9 [address] [place] [address] [address] Feb, [facility] [address] [facility] [id number] [address] [place] [address] Feb, Conjunctivitis, bacterial H1 0.9 [address] [place] [address] [address] Feb, [facility] [place] [address] [facility] [id number] [address] [place] [address] Feb, Dysuria R30.0 ; Acute cystit is N30.00 and BMI 40.0-44.9, adult Z68.41 [place] [address] [address] Feb, [place] [address] [address] Feb, Generalized anxiety disorder F41.1 and Tae donovan depressive disorder, recurrent episode with anxious distress F33.9 [place] [address] [address] Feb, Mood disorder F39 and BMI 40.0-44.9, feli lt Z68.41 [place] [address] [address] Jan, [place] [address] [address] Jan, [place] [address] [address] Jan, Hypothyroid E03.9 [place] [address] [address] Jan, [place] [address] [address] Jan, Chronic kidney disease, unspecified N18. 9 ; Hypokalemia E87.6 ; Essential (primary) hypertension I10 ; Fibromyalgia M79.7 ; Coronary artery disease involving [place] coronary artery of [place] heart, angina presence unspecified I25.10 ; Hypothyroid E03.9 and Encounter for immunization Z23 [place] [address] [address] Jan, Hypothyroid E03.9 [place] [address] [address] Jan, [place] [address] [address] Dec, Vitamin D deficiency E55.9 [place] [address] [address] Dec, Primary osteoarthritis of left knee M17. 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 [place] [address] [address] 19 Dec, 2016 Fibromyalgia M79.7 [facility] [address] [address] 18 Dec, 2016 Mood disorder F39 [place] [address] [address] 13 Dec, 2016 [facility] [address] [address] 13 Dec, 2016 Generalized anxiety disorder F41.1 and M ajor depressive disorder, recurrent episode with anxious distress F33.9 [place] [address] [address] 11 Dec, 2016 [place] [address] [address] 08 Dec, 2016 Streptococcal meningitis G00.2 [place] [address] [address] 07 Dec, 2016 Streptococcal meningitis G00.2 [place] [address] [address] 07 Dec, 2016 [place] [address] [address] 06 Dec, 2016 Streptococcal meningitis G00.2 [place] [address] [address] 06 Dec, 2016 [place] [address] [address] 06 Dec, 2016 Major depressive disorder, recurrent epi sode with anxious distress F33.9 [place] [address] [address] Nov, Fever, unspecified fever cause R50.9 [facility] [id number] [place] [address] 24 Nov, 2016 [facility] [address] [address] 16 Aug, 2017 Hypothyroid E03.9 [facility] [address] [address] Nov, Generalized anxiety disorder F41.1 and Tea donovan depressive disorder, recurrent episode with anxious distress F33.9 [facility] [address] [address] Nov, [facility] [id number] [place] [id number] Oct, Dental examination Z01.20 [facility] [address] [address] Oct, Generalized anxiety disorder F41.1 and M zion depressive disorder, recurrent episode with anxious distress F33.9 [place] [address] [address] Oct, Chronic kidney disease, stage 4 (severe) N18.4 [place] [address] [address] Oct, [place] [address] [address] Oct, Fibromyalgia M79.7 [place] [address] [address] Oct, [place] [address] [address] Oct, Generalized anxiety disorder F41.1 ; Fady or depressive disorder, recurrent episode with anxious distress F33.9 and Bipolar disorder, current episode manic without psychotic features F31.10 [place] [address] [address] Sep, [place] [address] [address] Sep, [place] [address] [address] Sep, Vitamin D deficiency E55.9 [place] [address] [address] Sep, Vitamin D deficiency E55.9 [place] [address] [address] Sep, [place] [address] [address] Sep, Chronic kidney disease, stage 4 (severe) N18.4 ; Hypothyroid E03.9 ; Restless leg G25.81 ; Fibromyalgia M79.7 ; Essential (primary) hypertension I10 ; Vitamin D deficiency E55.9 ; Dyspepsia R10.13 ; Anemia in chronic kidney disease D63.1 ; Chronic kidney disease, unspecified N18.9 ; Coronary artery disease involving [place] coronary artery of [place] heart, angina presence unspecified I25.10 ; Screening breast examination Z12.39 and Low back pain M54.5 [place] [address] [address] August, Generalized anxiety disorder F41.1 and M shiraor depressive disorder, recurrent episode with anxious distress F33.9 [place] [address] [address] August, Generalized anxiety disorder F41.1 and M shiraor depressive disorder, recurrent episode with anxious distress F33.9 [place] [address] [address] August, Fibromyalgia M79.7 [place] [address] [address] Jul, Generalized anxiety disorder F41.1 and M ajor depressive disorder, recurrent episode with anxious distress F33.9 [place] [address] [address] Jul, Fibromyalgia M79.7 [place] [address] [address] Jul, Generalized anxiety disorder F41.1 [place] [address] [address] May, [place] [address] [address] 16 May, 2016 Hypothyroid E03.9 [place] [address] [address] 08 May, 2016 Chronic kidney disease, stage 4 (severe) N18.4 ; Hypothyroid E03.9 ; Restless leg G25.81 ; Fibromyalgia M79.7 ; Essential (primary) hypertension I10 ; Vitamin D deficiency E55.9 ; Dyspepsia R10.13 ; Acute non-recurrent maxillary sinusitis J01.00 ; Anemia in chronic kidney disease D63.1 ; Chronic kidney disease, unspecified N18.9 and Coronary artery disease involving [place] coronary artery of [place] heart, angina presence unspecified I25.10 [place] [address] [address] May, Vitamin D deficiency, unspecified E55.9 [place] [address] [address] May, Generalized anxiety disorder F41.1 and Tae donovan depressive disorder, recurrent episode with anxious distress F33.9 [place] [address] [address] Apr, Pain in right knee M25.561 and Pain in l eft knee M25.562 [place] [address] [address] Apr, [place] [address] [address] Apr, [place] [address] [address] Apr, [place] [address] [address] Mar, Generalized anxiety disorder F41.1 and Tae donovan depressive disorder, recurrent episode with anxious distress F33.9 [place] [address] [address] Mar, Generalized anxiety disorder F41.1 and Tae donovan depressive disorder, recurrent episode with anxious distress F33.9 [place] [address] [address] Mar, [place] [address] [address] Mar, [place] [address] [address] Mar, [place] [address] [address] Mar, Asthma J45.909 and Fibromyalgia M79.7 [place] [address] [address] Mar, Chronic kidney disease, stage 4 (severe) N18.4 ; Vitamin D deficiency E55.9 and Essential (primary) hypertension I10 [place] [address] [address] Feb, [place] [address] [address] Feb, Dysuria R30.0 ; Mixed stress and urge ur inary incontinence N39.46 ; Fibromyalgia M79.7 and Chronic kidney disease, stage IV (severe) N18.4 [place] [address] [address] Feb, Chronic kidney disease, stage 4 (severe) N18.4 [place] [address] [address] Feb, Chronic kidney disease, stage 4 (severe) N18.4 [place] [address] [address] Feb, [place] [address] [address] Feb, Vitamin D deficiency, unspecified E55.9 [place] [address] [address] Jan, [place] [address] [address] Jan, [facility] [address] [address] Dec, [facility] [address] [address] Dec, Chronic kidney disease, stage 4 (severe) N18.4 [place] [address] [address] Dec, Dysthymic disorder F34.1 and Generalized anxiety disorder F41.1 [place] [address] [address] Dec, [place] [address] [address] Dec, [place] [address] [address] Dec, Dysthymic disorder F34.1 and Generalized anxiety disorder F41.1 [place] [address] [address] Dec, Dysuria R30.0 ; Chronic kidney disease, stage 4 (severe) N18.4 ; Hypertension I10 ; Dyspepsia R10.13 ; Yeast dermatitis B37.2 ; Palpitations R00.2 ; Hypothyroid E03.9 ; Functional diarrhea K59.1 and Other seasonal allergic rhinitis J30.2 [facility] [address] [place] [address] Dec, [facility] [address] [place], [place] [id number] [address] [place] [address] Nov, Dysuria R30.0 and Stress inc ontinence N39.3 [place] [address] [address] Nov, [place] [address] [address] Nov, [place] [address] [address] Nov, Osteoarthritis of knees, bilateral M17.0 [facility] [address] [address] Nov, Dysthymic disorder F34.1 and Generalized anxiety disorder F41.1 [place] [address] [address] 16 Nov, 2015 [facility] [address] [address] Nov, [place] [address] [address] Nov, Urgency of urination R39.15 [place] [address] [address] Nov, [place] [address] [address] Nov, Chronic kidney disease, stage 4 (severe) N18.4 [place] [address] [address] Oct, Hypertension I10 ; Coronary artery disea se involving [place] coronary artery of [place] heart, angina presence unspecified I25.10 ; Palpitations R00.2 ; Hypothyroid E03.9 ; Right foot pain M79.671 ; Functional diarrhea K59.1 and Other seasonal allergic rhinitis J30.2 [place] [address] [address] Oct, Dysthymic disorder F34.1 and Generalized anxiety disorder F41.1 [place] [address] [address] Sep, [place] [address] [address] Sep, [place] [address] [address] Sep, [place] [address] [address] Sep, [place] [address] [address] 29 Sep, 2015 [place] [address] [address] 27 Sep, 2015 Dysthymic disorder F34.1 and Generalized anxiety disorder F41.1 [place] [address] [address] 16 Sep, 2015 Asthma with acute exacerbation in adult J45.901 ; Dysuria R30.0 ; Chronic kidney disease, stage 4 (severe) N18.4 and History of anemia Z86.[address] [address] 2015 Generalized anxiety disorder F41.1 and D ysthymic disorder F34.[address] [address] August, Screening breast examination Z12.39 and Acute recurrent maxillary sinusitis J01.[address] [address] August, Osteoarthritis of knees, bilateral M17.[address] [address] August, Chronic kidney disease, stage 4 (severe) N18.4 ; Acute non-recurrent maxillary sinusitis J01.00 ; Urinary problem R39.89 ; Bowel habit changes R19.4 ; Functional diarrhea K59.1 and History of colon polyps Z86.010 [place] [address] [address] Jul, Dysthymic disorder F34.1 and Generalized anxiety disorder F41.[address] [address] Jul, [address] [address] Jul, Dysthymic disorder F34.1 ; Generalized a nxiety disorder F41.1 and 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.[address] [id number] [place] [address] Jul, [facility] [address] [address] Jun, [facility] [address] [address] Jun, [facility] [address] [address] May, [facility] [address] [address] May, Dysthymic disorder F34.1 and Generalized anxiety disorder F41.1 [place] [address] [address] Apr, Kidney disease N28.9 [place] [address] [address] Apr, Generalized anxiety disorder F41.1 and D ysthymic disorder F34.1 [place] [address] [address] Apr, Chronic kidney disease, stage 4 (severe) N18.4 [place] [address] [address] Apr, Generalized anxiety disorder F41.1 ; Fady or depression, recurrent F33.9 and Sleep disturbance G47.9 [place] [address] [address] Mar, Generalized anxiety disorder F41.1 and D ysthymic disorder F34.1 [place] [address] [address] Mar, Generalized anxiety disorder F41.1 ; 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 and Insomnia G47.00 [place] [address] [address] Mar, [place] [address] [address] Mar, [place] [address] [address] Mar, Osteoarthritis of knees, bilateral M17.0 [place] [address] [address] Mar, Hypertension I10 ; Hypothyroid E03.9 ; D ysthymic disorder F34.1 ; Chronic kidney disease, stage 4 (severe) N18.4 and Nausea & vomiting R11.2 [place] [address] [address] Mar, Generalized anxiety disorder F41.1 ; 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 and Insomnia G47.[address] [address] Mar, Dehydration E86.0 ; Chronic kidney disea se, stage 4 (severe) N18.4 and Nausea & vomiting R11.2 [facility] [address] [facility] [id number] [address] [place] [address] Mar, Gastroenteritis K52.9 [place] [address] [address] Mar, [place] [address] [address] Mar, [address] [address] Feb, Dysthymic disorder F34.1 and Generalized anxiety disorder F41.1 [place] [address] [address] Jan, UTI (urinary tract infection) N39.0 ; As thma J45.909 ; Coronary artery disease involving [place] coronary artery of [place] heart, angina presence unspecified I25.10 ; Hypertension I10 ; Hypothyroid E03.9 ; Vitamin D deficiency E55.9 ; Insomnia G47.00 ; Palpitations R00.2 ; Depressed F32.9 ; Restless leg G25.81 and Anxiety F41.9 [place] [address] [address] Jan, Dysthymic disorder F34.1 and Generalized anxiety disorder F41.1 [place] [address] [address] Jan, [place] [address] [address] Dec, [place] [address] [address] Dec, Alkalosis 276.3 ; Chronic kidney disease , Stage IV (severe) 585.4 ; Hyperpotassemia 276.7 ; Secondary hyperparathyroidism, renal 588.81 ; Proteinuria 791.0 ; Unspecified vitamin D deficiency 268.9 ; Anemia in chronic kidney disease 285.21 ; Other and unspecified hyperlipidemia 272.4 ; Hypertension, essential, benign 401.1 and Chronic kidney disease (CKD), stage III (moderate) 585.3 [place] [address] [address] Dec, [place] [address] [address] Dec, Depressive disorder, not elsewhere class ified 311 and Generalized anxiety disorder 300.02 [place] [address] [address] Dec, [place] [address] [address] Dec, [place] [address] [address] Nov, Depressive disorder, not elsewhere class ified 311 and Generalized anxiety disorder 300.02 [place] [address] [address] Nov, Arthritis of both knees 716.96 [place] [address] [address] Nov, PAF (paroxysmal atrial fibrillation) 427 .31 ; CAD (coronary artery disease) 414.00 ; Chest pain 786.50 and Chronic kidney disease (CKD) stage G4/A1, severely decreased glomerular filtration rate (GFR) between 15-29 mL/min/1.73 square meter and albuminuria creatinine ratio less than 30 mg/g 585.[address] [address] Oct, Coronary atherosclerosis of unspecified type of vessel, [place] or graft 414.00 ; Chronic kidney disease, Stage IV (severe) 585.4 ; Hypertension 401.9 and Edema 782.[address] [address] Oct, Depressive disorder, not elsewhere class ified 311 and Generalized anxiety disorder 300.[address] [address] Oct, Depressive disorder, not elsewhere class ified 311 and Generalized anxiety disorder 300.[address] [address] Oct, [address] [address] Oct, [address] [address] Sep, [address] [address] Sep, Chronic kidney disease, Stage IV (severe ) 585.[address] [address] Sep, [address] [address] Sep, Coronary atherosclerosis of unspecified type of vessel, [place] or graft 414.00 ; Hypertension 401.9 ; Edema 782.3 and Hypothyroidism 244.[address] [address] Sep, Coronary atherosclerosis of unspecified type of vessel, [place] or graft 414.00 ; Hypertension 401.9 ; Fibromyalgia 729.1 ; Edema 782.3 ; Hypothyroidism 244.9 and Anemia 285.9 [place] [address] [place] [id number] [place] [address] Sep, Anxiety disorder, unspecified 300.00 and Depressive disorder, not elsewhere classified 311 [facility] [address] [place] [id number] [place] [address] Sep, [facility] [address] [place] [id number] [place] [address] August, Generalized anxiety disorder 300.02 [facility] [address] [place] [id number] [place] [address] August, Closed fracture of lateral malleolus 824 .2 [facility] [address] [address] Jul, [facility] [address] [place] [id number] [place] [address] Jul, [facility] [address] [place] [id number] [place] [address] Jun, [facility] [address] [place] [id number] [place] [address] Jun, [facility] [address] [place] [id number] [place] [address] Jun, [facility] [address] [place] [id number] [place] [address] Jun, [facility] [address] [place] [id number] [place] [address] Jun, [facility] [address] [place] [id number] [place] [address] Jun, [facility] [address] [place] [id number] [place] [address] May, [facility] [address] [place] [id number] [place] [address] May, [facility] [address] [place] [id number] [place] [address] May, [facility] [address] [place] [id number] [place] [address] 18 May, 2014 [facility] [place] [facility] [address] [facility] [id number] [place] [address] 16 May, 2014 [facility] [place] [facility] [address] [id number] [place] [address] 16 May, 2014 [facility] [place] [facility] [address] [id number] [place] [address] 13 May, 2014 [facility] [place] [facility] [address] [id number] [place] [address] 13 May, 2014 [facility] [place] [facility] [address] [id number] [place] [address] 10 May, 2014 [facility] [place] [facility] [address] [id number] [place] [address] 10 May, 2014 [facility] [place] [facility] [address] [id number] [place] [address] Apr, [facility] [place] [facility] [address] [id number] [place] [address] Apr, [facility] [place] [facility] [address] [id number] [place] [address] Mar, [facility] [place] [facility] [address] [id number] [place] [address] Mar, [facility] [place] [facility] [address] [id number] [place] [address] Mar, [facility] [place] [facility] [address] [id number] [place] [address] 15 Mar, 2014 [facility] [place] [facility] [address] [id number] [place] [address] 15 Mar, 2014 [facility] [place] [facility] [address] [id number] [place] [address] 15 Mar, 2014 [facility] [place] [facility] [address] [id number] [place] [address] 15 Mar, 2014 [facility] [place] [facility] [address] [id number] [place] [address] Feb, [facility] [place] [facility] [address] [facility] [id number] [place] [address] Feb, [facility] [place] [facility] [address] [id number] [place] [address] Feb, [facility] [place] [facility] [address] [id number] [place] [address] Jan, [facility] [place] [facility] [address] [id number] [place] [address] Jan, [facility] [place] [facility] [address] [id number] [place] [address] Jan, [facility] [place] [facility] [address] [id number] [place] [address] Jan, [facility] [place] [facility] [address] [id number] [place] [address] Jan, [facility] [place] [facility] [address] [id number] [place] [address] Jan, [facility] [place] [facility] [address] [id number] [place] [address] Jan, [facility] [place] [facility] [address] [id number] [place] [address] Jan, [facility] [place] [facility] [address] [id number] [place] [address] Jan, [facility] [place] [facility] [address] [id number] [place] [address] Jan, [facility] [place] [facility] [address] [id number] [place] [address] Nov, [facility] [place] [facility] [address] [id number] [place] [address] Nov, [facility] [place] [facility] [address] [id number] [place] [address] Nov, [facility] [place] [facility] [address] [id number] [place] [address] Oct, [facility] [place] [facility] [address] [id number] [place] [address] Oct, [facility] [place] [facility] [address] [id number] [facility] [address] Oct, [facility] [place] [facility] [address] [facility] [id number] [facility] [place] [address] Oct, [facility] [place] [facility] [address] [facility] [id number] [facility] [place] [address] Oct, [facility] [place] [facility] [address] [facility] [id number] [facility] [place] [address] Oct, 2013 [facility] [place] [facility] [address] [facility] [id number] [facility] [place] [address] Oct, [facility] [place] [facility] [address] [facility] [id number] [place] [address] Oct, [facility] [place] [facility] [address] [id number] [place] [address] Oct, [facility] [place] [facility] [address] [id number] [facility] [address] Sep, [facility] [place] [facility] [address] [facility] [id number] [place] [address] Sep, [facility] [place] [facility] [address] [id number] [facility] [address] Sep, [facility] [place] [facility] [address] [id number] [place] [address] Sep, [facility] [place] [facility] [address] [id number] [place] [address] Sep, [facility] [place] [facility] [address] [facility] [id number] [place] [address] Sep, [facility] [place] [facility] [address] [id number] [place] [address] Sep, [facility] [place] [facility] [address] [facility] [id number] [place] [address] Sep, [facility] [place] [facility] [address] [id number] [place] [address] Sep, [facility] [place] [facility] [address] [id number] [place] [address] August, [facility] [place] [facility] [address] [facility] [id number] [place] [address] August, [facility] [place] [facility] [address] [id number] [place] [address] August, [facility] [place] [facility] [address] [id number] [place] [address] August, [facility] [place] [facility] [address] [id number] [place] [address] August, [facility] [place] [facility] [address] [id number] [place] [address] August, [facility] [place] [facility] [address] [id number] [place] [address] Jul, [facility] [place] [facility] [address] [id number] [place] [address] Jul, [facility] [place] [facility] [address] [id number] [place] [address] Jul, [facility] [place] [facility] [address] [id number] [place] [address] Jul, [facility] [place] [facility] [address] [id number] [place] [address] Jul, [facility] [place] [facility] [address] [id number] [place] [address] Jul, [facility] [place] [facility] [address] [id number] [place] [address] Jun, [facility] [place] [facility] [address] [id number] [place] [address] Jun, [facility] [place] [facility] [address] [id number] [place] [address] May, [facility] [place] [facility] [address] [id number] [place] [address] May, [facility] [place] [facility] [address] [id number] [place] [address] May, [facility] [address] [id number] [place] [address] May, [facility] [place] [facility] [address] [id number] [place] [address] Apr, [facility] [place] [facility] [address] [id number] [place] [address] Apr, [facility] [place] [facility] [id number] [place] [address] 18 Mar, 2013 [facility] [place] [facility] [address] [id number] [place] [address] 18 Mar, 2013 [facility] [place] [facility] [id number] [place] [address] Mar, [facility] [place] [facility] [address] [id number] [place] [address] 17 Mar, 2013 [facility] [place] [facility] [id number] [place] [address] 05 Mar, 2013 [facility] [place] [facility] [address] [id number] [place] [address] 05 Mar, 2013 [facility] [place] [facility] [id number] [place] [address] Feb, [facility] [place] [facility] [address] [id number] [place] [address] Feb, [facility] [place] [facility] [id number] [place] [address] 14 Feb, 2013 [facility] [place] [facility] [address] [id number] [place] [address] 14 Feb, 2013 [facility] [place] [facility] [id number] [place] [address] 05 Feb, 2013 [facility] [place] [facility] [id number] [place] [address] 05 Feb, 2013 [facility] [place] [facility] [address] [id number] [place] [address] 24 Jan, 2013 [facility] [place] [facility] [address] [id number] [place] [address] 24 Jan, 2013 [facility] [place] [facility] [address] [facility] [id number] [facility] [address] Jan, [facility] [place] [facility] [address] [facility] [id number] [facility] [place] [address] Jan, [facility] [address] [id number] [facility] [place] [address] Jan, [facility] [address] [facility] [id number] [facility] [address] Jan, [facility] [address] [facility] [id number] [facility] [address] Dec, [facility] [address] [id number] [place] [address] Dec, [facility] [address] [id number] [place] [address] Nov, [facility] [address] [id number] [place] [address] Nov, [facility] [address] [facility] [id number] [facility] [place] [address] Oct, [facility] [address] [id number] [place] [address] Oct, [facility] [address] [id number] [place] [address] Oct, [facility] [address] [id number] [place] [address] Oct, [facility] [address] [facility] [id number] [facility] [address] Oct, [facility] [address] [id number] [place] [address] Oct, [facility] [address] [id number] [place] [address] Sep, [facility] [address] [id number] [place] [address] Sep, [facility] [address] [facility] [id number] [place] [address] Sep, [facility] [address] [id number] [place] [address] Sep, [facility] [address] [id number] [place] [address] August, [facility] [address] [id number] [place] [address] August, [facility] [address] [id number] [place] [address] August, [facility] [address] [id number] [place] [address] August, [facility] [address] [id number] [place] [address] August, [facility] [address] [id number] [place] [address] Jul, [facility] [address] [id number] [place] [address] Jul, [facility] [address] [id number] [place] [address] Jul, [facility] [address] [id number] [place] [address] Jul, [facility] [address] [id number] [place] [address] Jul, [facility] [address] [id number] [place] [address] Jul, [facility] [address] [id number] [place] [address] Jul, [facility] [address] [id number] [place] [address] Jul, [facility] [address] [id number] [place] [address] Jul, [facility] [address] [id number] [place] [address] Jul, [facility] [address] [facility] [id number] [place] [id number] Jun, [facility] [place] [facility] [address] [id number] [place] [address] Jun, [facility] [address] [id number] [place] [address] Jun, [facility] [address] [id number] [place] [address] Jun, [facility] [address] [id number] [place] [address] Jun, [facility] [address] [id number] [place] [address] May, [facility] [address] [id number] [place] [address] May, [facility] [address] [id number] [place] [address] May, [facility] [address] [id number] [place] [address] Apr, [facility] [address] [id number] [place] [address] Apr, [facility] [address] [id number] [place] [address] Apr, [facility] [address] [id number] [place] [address] Apr, [facility] [address] [id number] [place] [address] Apr, [facility] [address] [id number] [place] [address] Apr, [facility] [address] [id number] [place] [address] Mar, [facility] [address] [id number] [place] [address] Mar, [facility] [address] [id number] [place] [address] Mar, [facility] [address] [id number] [place] [address] Mar, [facility] [address] [id number] [place] [address] Feb, [facility] [address] [id number] [place] [address] Feb, [facility] [address] [id number] [place] [address] Feb, [facility] [address] [id number] [place] [address] Feb, [facility] [address] [id number] [place] [address] Feb, [facility] [address] [id number] [place] [address] Feb, [facility] [address] [id number] [place] [address] Feb, [facility] [address] [id number] [place] [address] Feb, [facility] [id number] [place] [address] Feb, [facility] [address] [id number] [place] [address] Feb, [facility] [address] [id number] [place] [address] Feb, [facility] [address] [id number] [place] [address] Feb, [facility] [address] [id number] [place] [address] Feb, [facility] [address] [id number] [place] [address] Feb, [facility] [address] [id number] [place] [address] Feb, [facility] [address] [id number] [place] [address] Feb, [facility] [address] [facility] [id number] [place] [address] 31 Jan, 2011 [facility] [address] [id number] [place] [address] 31 Jan, 2012 [facility] [address] [id number] [place] [address] Jan, [facility] [address] [id number] [place] [address] 31 Jan, 2011 [facility] [address] [id number] [place] [address] 30 Jan, 2012 [facility] [address] [id number] [place] [address] Jan, [facility] [address] [id number] [place] [address] Jan, [facility] [address] [id number] [place] [address] 16 Jan, 2012 [facility] [address] [id number] [place] [address] 16 Jan, 2012 [facility] [address] [id number] [place] [address] Jan, [facility] [address] [id number] [place] [address] 15 Jan, 2012 [facility] [address] [id number] [place] [address] Jan, [facility] [address] [id number] [place] [address] 26 Dec, 2011 [facility] [address] [id number] [place] [address] 26 Dec, 2011 [facility] [address] [id number] [place] [address] 24 Dec, 2011 [facility] [address] [id number] [place] [address] 23 Dec, 2011 [facility] [address] [id number] [place] [address] 22 Sep, 2011 [facility] [address] [id number] [place] [address] 21 Dec, 2011 [facility] [address] [id number] [place] [address] 20 Sep, 2011 [facility] [address] [id number] [place] [address] 20 Sep, 2011 [facility] [address] [id number] [place] [address] 07 Sep, 2011 [facility] [address] [id number] [place] [address] 06 Sep, 2011 [facility] [address] [id number] [place] [address] 06 Sep, 2011 [facility] [address] [id number] [place] [address] 05 Sep, 2011 [facility] [address] [id number] [place] [address] 23 Nov, 2011 [facility] [address] [id number] [place] [address] 17 Nov, 2011 [facility] [address] [id number] [place] [address] 13 Nov, 2011 [facility] [address] [id number] [place] [address] 10 Nov, 2011 [facility] [address] [id number] [place] [address] 08 Nov, 2011 [facility] [address] [id number] [place] [address] Nov, [facility] [address] [id number] [place] [address] Nov, 2011 [facility] [address] [id number] [place] [address] Nov, 2011 [facility] [address] [id number] [place] [address] Oct, [facility] [address] [id number] [facility] [address] Oct, [facility] [address] [id number] [facility] [place] [address] Oct, [facility] [address] [id number] [facility] [address] Oct, [facility] [address] [id number] [facility] [address] Oct, [facility] [address] [id number] [facility] [address] Oct, [facility] [address] [id number] [place] [address] Oct, [facility] [address] [id number] [place] [address] Sep, [facility] [address] [id number] [place] [address] Sep, [facility] [address] [id number] [place] [address] August, [facility] [address] [id number] [place] [address] August, [facility] [address] [id number] [place] [address] August, [facility] [address] [id number] [place] [address] August, [facility] [address] [id number] [place] [address] Jul, [facility] [address] [id number] [place] [address] Jul, [facility] [address] [id number] [place] [address] Jul, [facility] [address] [id number] [place] [address] Jul, [facility] [address] [id number] [facility] [address] 04 Jul, 2011 [facility] [address] [id number] [place] [address] Jul, [facility] [address] [id number] [place] [address] Jul, [facility] [address] [id number] [place] [address] Jul, [facility] [address] [id number] [place] [address] Jul, [facility] [address] [id number] [place] [address] Jun, [facility] [address] [id number] [place] [address] Jun, [facility] [address] [id number] [place] [address] 15 Jun, 2011 [facility] [address] [id number] [place] [address] 14 Jun, 2011 [facility] [address] [id number] [place] [address] Jun, [facility] [address] [id number] [place] [address] Jun, [facility] [address] [id number] [place] [address] Jun, [facility] [address] [id number] [place] [address] May, [facility] [address] [id number] [place] [address] 24 May, 2011 [facility] [address] [id number] [place] [address] 16 May, 2011 [facility] [address] [id number] [place] [address] 16 May, 2011 [facility] [address] [id number] [place] [address] May[facility] [address] [id number] [place] [address] Apr, [facility] [address] [id number] [place] [address] Apr, [facility] [address] [id number] [place] [address] Apr, [facility] [address] [id number] [place] [address] Apr, [facility] [address] [id number] [place] [address] Apr, [facility] [address] [id number] [place] [address] Mar, [facility] [address] [id number] [place] [address] Mar, [facility] [address] [id number] [place] [address] Mar, [facility] [address] [id number] [place] [address] Mar, [facility] [address] [id number] [place] [address] Mar, [facility] [address] [id number] [place] [address] Mar, [facility] [address] [id number] [place] [address] Mar, [facility] [address] [id number] [place] [address] Feb, [facility] [address] [id number] [place] [address] Feb, [facility] [address] [id number] [place] [address] 08 Feb, 2011 [facility] [address] [id number] [place] [address] Feb, [facility] [id number] [place] [address] Jan, [facility] [id number] [place] [address] Jan, [facility] [id number] [place] [address] Jan, [facility] [id number] [place] [address] Jan, [facility] [id number] [place] [address] Nov, [facility] [id number] [place] [address] Mar, [facility] [id number] [place] [address] Mar, [facility] [id number] [place] [address] Mar, [facility] [id number] [place] [address] Mar, [facility] [id number] [place] [address] Mar, [facility] [id number] [place] [address] Mar, [facility] [id number] [place] [address] Feb, [facility] [id number] [place] [address] Feb, [facility] [id number] [place] [address] Jan, [facility] [id number] [place] [address] Jan, [facility] [id number] [place] [address] Jan, IMMUNIZATIONS No Known Immunizations SOCIAL HISTORY [...] History CPAP Noncompliance_ Dr. Madden advises a CUPR driving. Medical History Bacterial meningitis 12/2016 Medical [...] retninal repair 12/31/2017 Surgical History cataract surgery 2017 Surgical History cataract surgery 2018 Surgical History SCS trial x7 days 2018 Surgical History SCS implant removed. 2018 Surgical History right shoulder surgery to repair torn te ndons 02/2019 Hospitalization History Surgeries Only Hospitalization History bacterial meningitis December 2016 Hospitalization History [facility] psych for SI 1988 Hospitalization History [facility]-Altered mental status 05/2017 Hospitalization History sepsis, UTI, headache 08/03/2018-
--- OUTSIDE RECORDS SUMMARY | 2019-08-01 09:58 | XMS REPORT ---
Author Author JahLola Doctor Organization [facility] Address Unknown Phone Unavailable Care Team Providers Care Patient Flow Coordinator Name Role Phone Migration, Doctor Unavailable Unavailable PROBLEMS Type Condition ICD9-CM Code WUC37-SI Code Onset Dates Condition S tatus SNOMED Code Problem Generalized anxiety disorder F41.1 A ctive 10658053 Problem Low back pain M54.5 Active 809938 009 Problem Insomnia G47.00 Active 799178541 Problem Hypothyroid E03.9 Active 29500557 Problem Palpitations R00.2 Active 3085243 2 Problem Asthma J45.909 Active 116999837 Problem Mixed stress and urge urinary incontinence N39.46 Active 648299449 Problem Fibromyalgia M79.7 Active 3249118 05 Problem Stage 3 chronic kidney disease N18.3 Active 276101199 Problem Body mass index (BMI) of 40.0-44.9 in adult Z68.41 Active 214156275 Problem Seasonal allergic rhinitis due to pollen J30.1 Active 40206491 Problem 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 Active 8892735695822 Problem Primary osteoarthritis of left knee M17.12 Active 122719819 Problem Hypercholesterolemia E78.00 Active 01082606 Problem Essential (primary) hypertension I10 Active 31536856 Problem Restless leg syndrome G25.81 Active 66406352 Problem Chronic pain syndrome G89.4 Active 181782642 Problem Perimenopausal vasomotor symptoms N95.1 Active 468909856 Problem Major depressive disorder, recurrent, moderate F33 .1 Active 832317806 ALLERGIES No Information ENCOUNTERS Encounter Location Date Diagnosis [facility] [id number] [place] [address] Jun, [facility] [address] [address] Jun, [facility] [id number] [place] [address] Jun, Chronic pain syndrome G89.4 [place] [address] [address] May, Cystitis N30.90 [place] [address] [address] May, [place] [address] [address] May, [facility] [address] [facility] [id number] [address] [place] [address] May, Chronic pain syndrome G89.4 [place] [address] [address] May, Generalized anxiety disorder F41.1 and M shiraor depressive disorder, recurrent episode with anxious distress F33.9 [place] [address] [address] Apr, Major depressive disorder, recurrent, mo derate F33.1 ; Generalized anxiety disorder F41.1 and Dysthymic disorder F34.1 [place] [address] [address] Apr, Chronic pain syndrome G89.4 [place] [address] [address] Apr, Acute pain of right knee M25.561 [place] [address] [address] Apr, [place] [address] [address] Mar, Major depressive disorder, recurrent, mo derate F33.1 ; Generalized anxiety disorder F41.1 and Dysthymic disorder F34.1 [facility] [address] [facility] [id number] [place] [address] Mar, Fluid collection of middle e ar H65.90 and Dizziness R42 [place] [address] [address] Mar, [place] [address] [address] Mar, [place] [address] [address] Mar, Essential (primary) hypertension I10 ; S tage 3 chronic kidney disease N18.3 ; Hypercholesterolemia E78.00 ; Asthma J45.909 ; Recurrent UTI N39.0 ; Status post shoulder surgery Z98.890 and Encounter for immunization Z23 [place] [address] [address] Mar, Chronic pain syndrome G89.4 [place] [address] [address] Feb, [place] [address] [address] Feb, [place] [address] [address] Feb, Oral thrush B37.0 and Sore throat J02.9 [place] [address] [address] Feb, Chronic pain syndrome G89.4 [place] [address] [address] Jan, [place] [address] [address] Jan, Chronic pain syndrome G89.4 [place] [address] [address] Jan, Hypercholesterolemia E78.00 [place] [address] [address] Jan, [place] [address] [address] Dec, Chronic kidney disease, stage 4 (severe) N18.4 [place] [address] [address] Dec, Major depressive disorder, recurrent, mo derate F33.1 ; Generalized anxiety disorder F41.1 and Dysthymic disorder F34.1 [place] [address] [address] Dec, Generalized anxiety disorder F41.1 and Tae donovan depressive disorder, recurrent episode with anxious distress F33.9 [place] [address] [address] Dec, [place] [address] [address] Dec, [place] [address] [address] Dec, Encounter for immunization Z23 [address] [address] Dec, Diarrhea, unspecified type R19.7 and Hem orrhoids, unspecified hemorrhoid type K64.[address] [address] Dec, Encounter for Medicare annual wellness e xam Z00.00 ; Chronic kidney disease, stage 4 (severe) N18.4 ; Encounter for immunization Z23 ; Major depressive disorder, recurrent, moderate F33.1 ; Atherosclerosis of duckwater coronary artery of duckwater heart with angina pectoris I25.119 ; Asthma J45.909 ; Hypothyroid E03.9 and Fibromyalgia M79.[address] [address] Dec, Chronic pain syndrome G89.[address] [address] Nov, Major depressive disorder, recurrent, mo derate F33.1 ; Generalized anxiety disorder F41.1 and Dysthymic disorder F34.1 [place] [address] [address] Nov, [place] [address] [address] Nov, Chronic pain syndrome G89.4 [place] [address] [address] Nov, Restless leg syndrome G25.81 [place] [address] [address] Nov, Pain in right shoulder M25.511 ; Restles s leg syndrome G25.81 ; Other chronic pain G89.29 ; Screening for breast cancer Z12.39 ; Insomnia G47.00 and Morbid obesity E66.01 [place] [address] [address] Nov, [place] [address] [address] Oct, Major depressive disorder, recurrent, mo derate F33.1 ; Generalized anxiety disorder F41.1 and Dysthymic disorder F34.1 [place] [address] [address] Oct, [place] [address] [address] Oct, Cellulitis of left lower extremity L03.1 16 and Morbid obesity E66.01 [facility] [id number] [place] [address] Oct, [place] [address] [address] Oct, [place] [address] [address] Oct, Generalized anxiety disorder F41.1 and M ajor depressive disorder, recurrent episode with anxious distress F33.9 [facility] [address] [id number] [place] [address] Oct, [place] [address] [address] Oct, Chronic pain syndrome G89.4 [place] [address] [address] Oct, Chronic pain syndrome G89.4 [facility] [address] [facility] [id number] [address] [place] [address] Oct, UTI symptoms R39.9 ; Acute c ystitis without hematuria N30.00 and Morbid obesity E66.01 [facility] [id number] [place] [address] Oct, [facility] [address] [address] Oct, Chronic pain syndrome G89.4 [facility] [address] [address] Sep, [facility] [address] [address] Sep, Generalized anxiety disorder F41.1 and Tae donovan depressive disorder, recurrent episode with anxious distress F33.9 [facility] [address] [address] Sep, Chronic kidney disease, stage 4 (severe) N18.4 [facility] [address] [address] Sep, Fibromyalgia M79.7 and Chronic pain synd lisseth G89.4 [facility] [id number] [place] [address] Sep, [address] [place] [address] Sep, Chronic pain syndrome G89.4 [facility] [id number] [place] [address] Sep, [facility] [address] [address] Sep, Chronic pain syndrome G89.4 ; Fibromyalg ia M79.7 and Morbid obesity E66.01 [facility] [id number] [place] [address] August, Generalized anxiety disorder F41.1 and Tae donovan depressive disorder, recurrent episode with anxious distress F33.9 [address] [address] [address] August, Fibromyalgia M79.7 [place] [address] [address] August, Restless leg syndrome G25.81 ; Vitamin D deficiency E55.9 ; Urinary tract infection without hematuria, site unspecified N39.0 ; Pain in right shoulder M25.511 ; Other chronic pain G89.29 ; Biceps tendinitis on right M75.21 and Morbid obesity E66.01 [address] [address] [address] Jul, Urinary tract infection without hematuri a, site unspecified N39.0 and Morbid obesity E66.01 [address] [address] [address] Jul, [address] [address] [address] Jul, [place] [address] [address] Jul, Fibromyalgia M79.7 [address] [address] [address] Jul, Acute pain of right shoulder M25.511 [address] [address] [address] Jul, Acute pain of right shoulder M25.511 and Morbid obesity E66.01 [address] [address] [address] Jun, [address] [address] [address] 14 Jun, 2018 Generalized anxiety disorder F41.1 and M shiraor depressive disorder, recurrent episode with anxious distress F33.9 [address] [address] [address] Jun, [address] [address] [address] Jun, Fibromyalgia M79.7 [facility] [address] [place] [address] 04 Jun, 2018 Acute pain of right shoulder M25.511 ; Acute pain of right hip M25.551 and Morbid obesity E66.01 [address] [address] [address] 11 May, 2018 Burning with urination R30.0 ; Vaginal d ischarge N89.8 ; Chronic kidney disease, stage 4 (severe) N18.4 ; Body mass index (BMI) of 40.0-44.9 in adult Z68.41 and Morbid obesity E66.01 [address] [address] [address] 07 May, 2018 Fibromyalgia M79.7 [address] [address] [address] 06 May, 2018 Generalized anxiety disorder F41.1 and M ajor depressive disorder, recurrent episode with anxious distress F33.9 [address] [address] [address] Apr, [address] [address] [address] Apr, Fibromyalgia M79.7 [facility] [id number] [place] [address] Mar, Acute UTI N39.0 and Dysuria R30.0 [address] [address] [address] Mar, Fibromyalgia M79.7 [address] [place] [address] 15 Feb, 2018 [address] [address] [address] 14 Feb, 2018 [address] [address] [address] Feb, [address] [address] [address] Feb, Fibromyalgia M79.7 [facility] [address] [address] Feb, Complicated UTI (urinary tract infection ) N39.0 [facility] [address] [address] Feb, [facility] [address] [address] Jan, Generalized anxiety disorder F41.1 and M ajor depressive disorder, recurrent episode with anxious distress F33.9 [facility] [address] [facility] [id number] [address] [place] [address] Jan, Acute conjunctivitis of left eye, unspecified acute conjunctivitis type H10.32 [facility] [address] [address] Jan, [address] [place] [address] [address] Jan, Acute non-recurrent maxillary sinusitis J01.00 ; Dysuria R30.0 ; Perimenopausal vasomotor symptoms N95.1 and Fibromyalgia M79.7 [address] [place] [address] [address] Dec, Vitamin D deficiency E55.9 [address] [address] [address] Dec, Vitamin D deficiency E55.9 [address] [address] [address] 24 Dec, 2017 Vitamin D deficiency E55.9 [address] [address] [address] 12 Dec, 2017 [address] [address] [address] Dec, Fibromyalgia M79.7 [address] [address] Nov, [facility] [address] [address] Nov, [facility] [address] [address] Nov, [facility] [address] [address] Nov, Fibromyalgia M79.7 ; Vision changes H53. 9 ; Chest wall pain R07.89 and Chronic pain syndrome G89.4 [address] [place] [address] [address] Nov, [address] [address] [address] Nov, Rash of hands R21 [address] [address] Nov, Generalized anxiety disorder F41.1 and M shiraor depressive disorder, recurrent episode with anxious distress F33.9 [address] [address] [address] Nov, Fibromyalgia M79.7 [address] [address] [address] Nov, Complicated UTI (urinary tract infection ) N39.0 [address] [place] [address] Oct, [facility] [address] [address] Oct, Generalized anxiety disorder F41.1 and M zion depressive disorder, recurrent episode with anxious distress F33.9 [address] [address] [address] Oct, [facility] [address] [address] Oct, Fibromyalgia M79.7 [facility] [address] [address] Sep, Restless leg syndrome G25.81 and Restles s leg G25.81 [address] [place] [address] Sep, [address] [address] [address] Sep, Seasonal allergic rhinitis due to pollen J30.1 ; Screening for breast cancer Z12.31 ; Chest pain at rest R07.9 ; Restless leg syndrome G25.81 ; Essential (primary) hypertension I10 and Depressed F32.9 [address] [place] [address] [address] August, Fibromyalgia M79.7 [address] [address] [address] August, [address] [address] [address] August, [address] [address] [address] August, Abnormal chest CT R93.8 [address] [address] [address] August, Generalized anxiety disorder F41.1 and M shiraor depressive disorder, recurrent episode with anxious distress F33.9 [address] [address] [address] August, Abnormal chest CT R93.8 [address] [address] [address] Jul, [address] [address] [address] Jul, Chronic kidney disease, stage 4 (severe) N18.4 [address] [place] [address] [address] Jul, [address] [address] [address] Jul, Restless leg G25.81 ; Mixed stress and u rge urinary incontinence N39.46 and Fibromyalgia M79.7 [facility] [id number] [place] [address] Jul, Chronic kidney disease, stage 4 (severe) N18.4 [address] [place] [address] [address] Jun, Orthostatic hypotension I95.1 ; Chronic kidney disease, stage 4 (severe) N18.4 ; Chest wall discomfort R07.89 and Body mass index (BMI) of 40.0- 44.9 in adult Z68.41 [address] [address] [address] Jun, [address] [address] [address] Jun, Orthostatic hypotension I95.1 [address] [address] [address] Jun, [facility] [address] [facility] [id number] [place] [address] Jun, Orthostatic hypotension I95. 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 [address] [address] [address] May, Chronic kidney disease, stage 4 (severe) N18.4 [facility] [address] [address] May, Chronic kidney disease, stage 4 (severe) N18.4 [facility] [address] [address] May, Abnormal chest [address] R93.8 [facility] [address] [address] May, [address] [address] [address] May, [facility] [address] [address] May, Generalized anxiety disorder F41.1 and M zion depressive disorder, recurrent episode with anxious distress F33.9 [address] [address] [address] May, Mood disorder F39 [address] [address] [address] Apr, [address] [address] [address] Apr, Infected skin lesion L08.[address] rain of right shoulder region, initial encounter S46.911A [place] [address] [address] Apr, Generalized anxiety disorder F41.1 and M zion depressive disorder, recurrent episode with anxious distress F33.9 [address] [address] [address] Apr, [place] [address] [address] Apr, Recent urinary tract infection Z87.440 a nd Hypothyroid E03.9 [address] [address] [address] Apr, Generalized anxiety disorder F41.1 and M shiraor depressive disorder, recurrent episode with anxious distress F33.9 [address] [address] [address] Apr, Recent urinary tract infection Z87.440 [place] [address] [address] Mar, [facility] N [facility] [id number] [address] [place] [address] Mar, Dysuria R30.0 ; Acute cystit is without hematuria N30.00 and BMI 40.0-44.9, adult Z68.41 [place] [address] [address] Mar, [place] [address] [address] Mar, [place] [address] [address] Mar, Generalized anxiety disorder F41.1 and M shiraor depressive disorder, recurrent episode with anxious distress F33.9 [address] [address] [address] Feb, Conjunctivitis, bacterial H10.9 [place] [address] [address] Feb, [facility] [address] [facility] [id number] [address] [place] [address] Feb, Conjunctivitis, bacterial H1 0.9 [place] [address] [address] Feb, [facility] [place] [address] [facility] [id number] [address] [place] [address] Feb, Dysuria R30.0 ; Acute cystit is N30.00 and BMI 40.0-44.9, adult Z68.41 [place] [address] [address] Feb, [place] [address] [address] Feb, Generalized anxiety disorder F41.1 and Tae donovan depressive disorder, recurrent episode with anxious distress F33.9 [place] [address] [address] Feb, Mood disorder F39 and BMI 40.0-44.9, feli lt Z68.41 [place] [address] [address] Jan, [place] [address] [address] Jan, [place] [address] [address] Jan, Hypothyroid E03.9 [place] [address] [address] Jan, [place] [address] [address] Jan, Chronic kidney disease, unspecified N18. 9 ; Hypokalemia E87.6 ; Essential (primary) hypertension I10 ; Fibromyalgia M79.7 ; Coronary artery disease involving duckwater coronary artery of duckwater heart, angina presence unspecified I25.10 ; Hypothyroid E03.9 and Encounter for immunization Z23 [place] [address] [address] Jan, Hypothyroid E03.9 [place] [address] [address] Jan, [place] [address] [address] Dec, Vitamin D deficiency E55.9 [place] [address] [address] Dec, Primary osteoarthritis of left knee M17. 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 [place] [address] [address] 19 Dec, 2016 Fibromyalgia M79.7 [facility] [address] [address] 18 Dec, 2016 Mood disorder F39 [place] [address] [address] 13 Dec, 2016 [facility] [address] [address] 13 Dec, 2016 Generalized anxiety disorder F41.1 and M ajor depressive disorder, recurrent episode with anxious distress F33.9 [place] [address] [address] 11 Dec, 2016 [place] [address] [address] 08 Dec, 2016 Streptococcal meningitis G00.2 [place] [address] [address] 07 Dec, 2016 Streptococcal meningitis G00.2 [place] [address] [address] 07 Dec, 2016 [place] [address] [address] 06 Dec, 2016 Streptococcal meningitis G00.2 [place] [address] [address] 06 Dec, 2016 [place] [address] [address] 06 Dec, 2016 Major depressive disorder, recurrent epi sode with anxious distress F33.9 [place] [address] [address] Nov, Fever, unspecified fever cause R50.9 [facility] [id number] [place] [address] 24 Nov, 2016 [facility] [address] [address] 16 Aug, 2017 Hypothyroid E03.9 [facility] [address] [address] Nov, Generalized anxiety disorder F41.1 and Tae donovan depressive disorder, recurrent episode with anxious distress F33.9 [facility] [address] [address] Nov, [facility] [address] [facility] [place] [id number] Oct, Dental examination Z01.20 [facility] [address] [address] Oct, Generalized anxiety disorder F41.1 and M zion depressive disorder, recurrent episode with anxious distress F33.9 [place] [address] [address] Oct, Chronic kidney disease, stage 4 (severe) N18.4 [place] [address] [address] Oct, [place] [address] [address] Oct, Fibromyalgia M79.7 [place] [address] [address] Oct, [place] [address] [address] Oct, Generalized anxiety disorder F41.1 ; Fady or depressive disorder, recurrent episode with anxious distress F33.9 and Bipolar disorder, current episode manic without psychotic features F31.10 [place] [address] [address] Sep, [place] [address] [address] Sep, [place] [address] [address] Sep, Vitamin D deficiency E55.9 [place] [address] [address] Sep, Vitamin D deficiency E55.9 [place] [address] [address] Sep, [place] [address] [address] Sep, Chronic kidney disease, stage 4 (severe) N18.4 ; Hypothyroid E03.9 ; Restless leg G25.81 ; Fibromyalgia M79.7 ; Essential (primary) hypertension I10 ; Vitamin D deficiency E55.9 ; Dyspepsia R10.13 ; Anemia in chronic kidney disease D63.1 ; Chronic kidney disease, unspecified N18.9 ; Coronary artery disease involving duckwater coronary artery of duckwater heart, angina presence unspecified I25.10 ; Screening breast examination Z12.39 and Low back pain M54.5 [place] [address] [address] August, Generalized anxiety disorder F41.1 and M shiraor depressive disorder, recurrent episode with anxious distress F33.9 [place] [address] [address] August, Generalized anxiety disorder F41.1 and M shiraor depressive disorder, recurrent episode with anxious distress F33.9 [place] [address] [address] August, Fibromyalgia M79.7 [place] [address] [address] Jul, Generalized anxiety disorder F41.1 and M ajor depressive disorder, recurrent episode with anxious distress F33.9 [place] [address] [address] Jul, Fibromyalgia M79.7 [place] [address] [address] Jul, Generalized anxiety disorder F41.1 [place] [address] [address] May, [place] [address] [address] 16 May, 2016 Hypothyroid E03.9 [place] [address] [address] 08 May, 2016 Chronic kidney disease, stage 4 (severe) N18.4 ; Hypothyroid E03.9 ; Restless leg G25.81 ; Fibromyalgia M79.7 ; Essential (primary) hypertension I10 ; Vitamin D deficiency E55.9 ; Dyspepsia R10.13 ; Acute non-recurrent maxillary sinusitis J01.00 ; Anemia in chronic kidney disease D63.1 ; Chronic kidney disease, unspecified N18.9 and Coronary artery disease involving duckwater coronary artery of duckwater heart, angina presence unspecified I25.10 [place] [address] [address] May, Vitamin D deficiency, unspecified E55.9 [place] [address] [address] May, Generalized anxiety disorder F41.1 and Tae donovan depressive disorder, recurrent episode with anxious distress F33.9 [place] [address] [address] Apr, Pain in right knee M25.561 and Pain in l eft knee M25.562 [place] [address] [address] Apr, [place] [address] [address] Apr, [place] [address] [address] Apr, [place] [address] [address] Mar, Generalized anxiety disorder F41.1 and Tae donovan depressive disorder, recurrent episode with anxious distress F33.9 [place] [address] [address] Mar, Generalized anxiety disorder F41.1 and Tae donovan depressive disorder, recurrent episode with anxious distress F33.9 [place] [address] [address] Mar, [place] [address] [address] Mar, [place] [address] [address] Mar, [place] [address] [address] Mar, Asthma J45.909 and Fibromyalgia M79.7 [place] [address] [address] Mar, Chronic kidney disease, stage 4 (severe) N18.4 ; Vitamin D deficiency E55.9 and Essential (primary) hypertension I10 [place] [address] [address] Feb, [place] [address] [address] Feb, Dysuria R30.0 ; Mixed stress and urge ur inary incontinence N39.46 ; Fibromyalgia M79.7 and Chronic kidney disease, stage IV (severe) N18.4 [place] [address] [address] Feb, Chronic kidney disease, stage 4 (severe) N18.4 [place] [address] [address] Feb, Chronic kidney disease, stage 4 (severe) N18.4 [place] [address] [address] Feb, [place] [address] [address] Feb, Vitamin D deficiency, unspecified E55.9 [place] [address] [address] Jan, [place] [address] [address] Jan, [facility] [address] [address] Dec, [facility] [address] [address] Dec, Chronic kidney disease, stage 4 (severe) N18.4 [place] [address] [address] Dec, Dysthymic disorder F34.1 and Generalized anxiety disorder F41.1 [place] [address] [address] Dec, [place] [address] [address] Dec, [place] [address] [address] Dec, Dysthymic disorder F34.1 and Generalized anxiety disorder F41.1 [place] [address] [address] Dec, Dysuria R30.0 ; Chronic kidney disease, stage 4 (severe) N18.4 ; Hypertension I10 ; Dyspepsia R10.13 ; Yeast dermatitis B37.2 ; Palpitations R00.2 ; Hypothyroid E03.9 ; Functional diarrhea K59.1 and Other seasonal allergic rhinitis J30.2 [facility] [address] [place] [address] Dec, [facility] [address] [place], [place] [id number] [address] [place] [address] Nov, Dysuria R30.0 and Stress inc ontinence N39.3 [place] [address] [address] Nov, [place] [address] [address] Nov, [place] [address] [address] Nov, Osteoarthritis of knees, bilateral M17.0 [facility] [address] [address] Nov, Dysthymic disorder F34.1 and Generalized anxiety disorder F41.1 [place] [address] [address] 16 Nov, 2015 [facility] [address] [address] Nov, [place] [address] [address] Nov, Urgency of urination R39.15 [place] [address] [address] Nov, [place] [address] [address] Nov, Chronic kidney disease, stage 4 (severe) N18.4 [place] [address] [address] Oct, Hypertension I10 ; Coronary artery disea se involving duckwater coronary artery of duckwater heart, angina presence unspecified I25.10 ; Palpitations R00.2 ; Hypothyroid E03.9 ; Right foot pain M79.671 ; Functional diarrhea K59.1 and Other seasonal allergic rhinitis J30.2 [place] [address] [address] Oct, Dysthymic disorder F34.1 and Generalized anxiety disorder F41.1 [place] [address] [address] Sep, [place] [address] [address] Sep, [place] [address] [address] Sep, [place] [address] [address] Sep, [place] [address] [address] 29 Sep, 2015 [place] [address] [address] 27 Sep, 2015 Dysthymic disorder F34.1 and Generalized anxiety disorder F41.1 [place] [address] [address] 16 Sep, 2015 Asthma with acute exacerbation in adult J45.901 ; Dysuria R30.0 ; Chronic kidney disease, stage 4 (severe) N18.4 and History of anemia Z86.[address] [address] 2015 Generalized anxiety disorder F41.1 and D ysthymic disorder F34.[address] [address] August, Screening breast examination Z12.39 and Acute recurrent maxillary sinusitis J01.[address] [address] August, Osteoarthritis of knees, bilateral M17.[address] [address] August, Chronic kidney disease, stage 4 (severe) N18.4 ; Acute non-recurrent maxillary sinusitis J01.00 ; Urinary problem R39.89 ; Bowel habit changes R19.4 ; Functional diarrhea K59.1 and History of colon polyps Z86.010 [place] [address] [address] Jul, Dysthymic disorder F34.1 and Generalized anxiety disorder F41.[address] [address] Jul, [address] [address] Jul, Dysthymic disorder F34.1 ; Generalized a nxiety disorder F41.1 and 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.[address] [id number] [place] [address] Jul, [facility] [address] [address] Jun, [facility] [address] [address] Jun, [facility] [address] [address] May, [facility] [address] [address] May, Dysthymic disorder F34.1 and Generalized anxiety disorder F41.1 [place] [address] [address] Apr, Kidney disease N28.9 [place] [address] [address] Apr, Generalized anxiety disorder F41.1 and D ysthymic disorder F34.1 [place] [address] [address] Apr, Chronic kidney disease, stage 4 (severe) N18.4 [place] [address] [address] Apr, Generalized anxiety disorder F41.1 ; Fady or depression, recurrent F33.9 and Sleep disturbance G47.9 [place] [address] [address] Mar, Generalized anxiety disorder F41.1 and D ysthymic disorder F34.1 [place] [address] [address] Mar, Generalized anxiety disorder F41.1 ; 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 and Insomnia G47.00 [place] [address] [address] Mar, [place] [address] [address] Mar, [place] [address] [address] Mar, Osteoarthritis of knees, bilateral M17.0 [place] [address] [address] Mar, Hypertension I10 ; Hypothyroid E03.9 ; D ysthymic disorder F34.1 ; Chronic kidney disease, stage 4 (severe) N18.4 and Nausea & vomiting R11.2 [place] [address] [address] Mar, Generalized anxiety disorder F41.1 ; 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 and Insomnia G47.[address] [address] Mar, Dehydration E86.0 ; Chronic kidney disea se, stage 4 (severe) N18.4 and Nausea & vomiting R11.2 [facility] [address] [facility] [id number] [place] [address] Mar, Gastroenteritis K52.9 [place] [address] [address] Mar, [place] [address] [address] Mar, [address] [address] Feb, Dysthymic disorder F34.1 and Generalized anxiety disorder F41.1 [place] [address] [address] Jan, UTI (urinary tract infection) N39.0 ; As thma J45.909 ; Coronary artery disease involving duckwater coronary artery of duckwater heart, angina presence unspecified I25.10 ; Hypertension I10 ; Hypothyroid E03.9 ; Vitamin D deficiency E55.9 ; Insomnia G47.00 ; Palpitations R00.2 ; Depressed F32.9 ; Restless leg G25.81 and Anxiety F41.9 [place] [address] [address] Jan, Dysthymic disorder F34.1 and Generalized anxiety disorder F41.1 [place] [address] [address] Jan, [place] [address] [address] Dec, [place] [address] [address] Dec, Alkalosis 276.3 ; Chronic kidney disease , Stage IV (severe) 585.4 ; Hyperpotassemia 276.7 ; Secondary hyperparathyroidism, renal 588.81 ; Proteinuria 791.0 ; Unspecified vitamin D deficiency 268.9 ; Anemia in chronic kidney disease 285.21 ; Other and unspecified hyperlipidemia 272.4 ; Hypertension, essential, benign 401.1 and Chronic kidney disease (CKD), stage III (moderate) 585.3 [place] [address] [address] Dec, [place] [address] [address] Dec, Depressive disorder, not elsewhere class ified 311 and Generalized anxiety disorder 300.02 [place] [address] [address] Dec, [place] [address] [address] Dec, [place] [address] [address] Nov, Depressive disorder, not elsewhere class ified 311 and Generalized anxiety disorder 300.02 [place] [address] [address] Nov, Arthritis of both knees 716.96 [place] [address] [address] Nov, PAF (paroxysmal atrial fibrillation) 427 .31 ; CAD (coronary artery disease) 414.00 ; Chest pain 786.50 and Chronic kidney disease (CKD) stage G4/A1, severely decreased glomerular filtration rate (GFR) between 15-29 mL/min/1.73 square meter and albuminuria creatinine ratio less than 30 mg/g 585.[address] [address] Oct, Coronary atherosclerosis of unspecified type of vessel, duckwater or graft 414.00 ; Chronic kidney disease, Stage IV (severe) 585.4 ; Hypertension 401.9 and Edema 782.[address] [address] Oct, Depressive disorder, not elsewhere class ified 311 and Generalized anxiety disorder 300.[address] [address] Oct, Depressive disorder, not elsewhere class ified 311 and Generalized anxiety disorder 300.[address] [address] Oct, [address] [address] Oct, [address] [address] Sep, [address] [address] Sep, Chronic kidney disease, Stage IV (severe ) 585.[address] [address] Sep, [address] [address] Sep, Coronary atherosclerosis of unspecified type of vessel, duckwater or graft 414.00 ; Hypertension 401.9 ; Edema 782.3 and Hypothyroidism 244.[address] [address] Sep, Coronary atherosclerosis of unspecified type of vessel, duckwater or graft 414.00 ; Hypertension 401.9 ; Fibromyalgia 729.1 ; Edema 782.3 ; Hypothyroidism 244.9 and Anemia 285.9 [place] [address] [place] [id number] [place] [address] Sep, Anxiety disorder, unspecified 300.00 and Depressive disorder, not elsewhere classified 311 [facility] [address] [place] [id number] [place] [address] Sep, [facility] [address] [place] [id number] [place] [address] August, Generalized anxiety disorder 300.02 [facility] [address] [place] [id number] [place] [address] August, Closed fracture of lateral malleolus 824 .2 [facility] [address] [address] Jul, [facility] [address] [place] [id number] [place] [address] Jul, [facility] [address] [place] [id number] [place] [address] Jun, [facility] [address] [place] [id number] [place] [address] Jun, [facility] [address] [place] [id number] [place] [address] Jun, [facility] [address] [place] [id number] [place] [address] Jun, [facility] [address] [place] [id number] [place] [address] Jun, [facility] [address] [place] [id number] [place] [address] Jun, [facility] [address] [place] [id number] [place] [address] May, [facility] [address] [place] [id number] [place] [address] May, [facility] [address] [place] [id number] [place] [address] May, [facility] [address] [place] [id number] [place] [address] 18 May, 2014 [facility] [place] [facility] [address] [facility] [id number] [place] [address] 16 May, 2014 [facility] [place] [facility] [id number] [place] [address] 16 May, 2014 [facility] [place] [facility] [id number] [place] [address] 13 May, 2014 [facility] [place] [facility] [id number] [place] [address] 13 May, 2014 [facility] [place] [facility] [id number] [place] [address] 10 May, 2014 [facility] [place] [facility] [id number] [place] [address] 10 May, 2014 [facility] [place] [facility] [id number] [place] [address] Apr, [facility] [place] [facility] [id number] [place] [address] Apr, [facility] [place] [facility] [id number] [place] [address] Mar, [facility] [place] [facility] [id number] [place] [address] Mar, [facility] [place] [facility] [id number] [place] [address] Mar, [facility] [place] [facility] [id number] [place] [address] 15 Mar, 2014 [facility] [place] [facility] [id number] [place] [address] 15 Mar, 2014 [facility] [place] [facility] [id number] [place] [address] 15 Mar, 2014 [facility] [place] [facility] [id number] [place] [address] 15 Mar, 2014 [facility] [place] [facility] [id number] [place] [address] Feb, [facility] [place] [facility] [address] [facility] [id number] [place] [address] Feb, [facility] [place] [facility] [id number] [place] [address] Feb, [facility] [place] [facility] [id number] [place] [address] Jan, [facility] [place] [facility] [id number] [place] [address] Jan, [facility] [place] [facility] [id number] [place] [address] Jan, [facility] [place] [facility] [id number] [place] [address] Jan, [facility] [place] [facility] [id number] [place] [address] Jan, [facility] [place] [facility] [id number] [place] [address] Jan, [facility] [place] [facility] [id number] [place] [address] Jan, [facility] [place] [facility] [id number] [place] [address] Jan, [facility] [place] [facility] [id number] [place] [address] Jan, [facility] [place] [facility] [id number] [place] [address] Jan, [facility] [place] [facility] [id number] [place] [address] Nov, [facility] [place] [facility] [id number] [place] [address] Nov, [facility] [place] [facility] [id number] [place] [address] Nov, [facility] [place] [facility] [id number] [place] [address] Oct, [facility] [place] [facility] [id number] [place] [address] Oct, [facility] [place] [facility] [address] [id number] [place] [address] Oct, [facility] [place] [facility] [address] [facility] [id number] [place] [address] Oct, [facility] [place] [facility] [address] [facility] [id number] [place] [address] Oct, [facility] [place] [facility] [address] [facility] [id number] [place] [address] Oct, 2013 [facility] [place] [facility] [address] [facility] [id number] [place] [address] Oct, [facility] [place] [facility] [address] [facility] [id number] [place] [address] Oct, [facility] [place] [facility] [id number] [place] [address] Oct, [facility] [place] [facility] [id number] [place] [address] Sep, [facility] [place] [facility] [address] [facility] [id number] [place] [address] Sep, [facility] [place] [facility] [id number] [place] [address] Sep, [facility] [place] [facility] [id number] [place] [address] Sep, [facility] [place] [facility] [id number] [place] [address] Sep, [facility] [place] [facility] [address] [facility] [id number] [place] [address] Sep, [facility] [place] [facility] [address] [id number] [place] [address] Sep, [facility] [place] [facility] [address] [facility] [id number] [place] [address] Sep, [facility] [place] [facility] [id number] [place] [address] Sep, [facility] [place] [facility] [id number] [place] [address] August, [facility] [place] [facility] [address] [facility] [id number] [place] [address] August, [facility] [place] [facility] [id number] [place] [address] August, [facility] [place] [facility] [id number] [place] [address] August, [facility] [place] [facility] [id number] [place] [address] August, [facility] [place] [facility] [id number] [place] [address] August, [facility] [place] [facility] [id number] [place] [address] Jul, [facility] [place] [facility] [id number] [place] [address] Jul, [facility] [place] [facility] [id number] [place] [address] Jul, [facility] [place] [facility] [id number] [place] [address] Jul, [facility] [place] [facility] [id number] [place] [address] Jul, [facility] [place] [facility] [id number] [place] [address] Jul, [facility] [place] [facility] [id number] [place] [address] Jun, [facility] [place] [facility] [id number] [place] [address] Jun, [facility] [place] [facility] [id number] [place] [address] May, [facility] [place] [facility] [id number] [place] [address] May, [facility] [place] [facility] [id number] [place] [address] May, [facility] [id number] [place] [address] May, [facility] [place] [facility] [id number] [place] [address] Apr, [facility] [place] [facility] [id number] [place] [address] Apr, [facility] [place] [facility] [id number] [place] [address] 18 Mar, 2013 [facility] [place] [facility] [id number] [place] [address] 18 Mar, 2013 [facility] [place] [facility] [id number] [place] [address] Mar, [facility] [place] [facility] [id number] [place] [address] 17 Mar, 2013 [facility] [place] [facility] [id number] [place] [address] 05 Mar, 2013 [facility] [place] [facility] [id number] [place] [address] 05 Mar, 2013 [facility] [place] [facility] [id number] [place] [address] Feb, [facility] [place] [facility] [id number] [place] [address] Feb, [facility] [place] [facility] [id number] [place] [address] 14 Feb, 2013 [facility] [place] [facility] [id number] [place] [address] 14 Feb, 2013 [facility] [place] [facility] [id number] [place] [address] 05 Feb, 2013 [facility] [place] [facility] [id number] [place] [address] 05 Feb, 2013 [facility] [place] [facility] [id number] [place] [address] 24 Jan, 2013 [facility] [place] [facility] [id number] [place] [address] 24 Jan, 2013 [facility] [place] [facility] [address] [facility] [id number] [place] [address] Jan, [facility] [place] [facility] [address] [facility] [id number] [place] [address] Jan, [facility] [id number] [place] [address] Jan, [facility] [address] [facility] [id number] [place] [address] Jan, [facility] [address] [facility] [id number] [place] [address] Dec, [facility] [id number] [place] [address] Dec, [facility] [id number] [place] [address] Nov, [facility] [id number] [place] [address] Nov, [facility] [address] [facility] [id number] [place] [address] Oct, [facility] [id number] [place] [address] Oct, [facility] [id number] [place] [address] Oct, [facility] [id number] [place] [address] Oct, [facility] [address] [facility] [id number] [place] [address] Oct, [facility] [id number] [place] [address] Oct, [facility] [id number] [place] [address] Sep, [facility] [id number] [place] [address] Sep, [facility] [address] [facility] [id number] [place] [address] Sep, [facility] [address] [id number] [place] [address] Sep, [facility] [id number] [place] [address] August, [facility] [id number] [place] [address] August, [facility] [address] [id number] [place] [address] August, [facility] [address] [id number] [place] [address] August, [facility] [id number] [place] [address] August, [facility] [id number] [place] [address] Jul, [facility] [id number] [place] [address] Jul, [facility] [id number] [place] [address] Jul, [facility] [id number] [place] [address] Jul, [facility] [id number] [place] [address] Jul, [facility] [address] [id number] [place] [address] Jul, [facility] [address] [id number] [place] [address] Jul, [facility] [address] [id number] [place] [address] Jul, [facility] [id number] [place] [address] Jul, [facility] [id number] [place] [address] Jul, [facility] [address] [facility] [id number] [place] [id number] Jun, [facility] [place] [facility] [id number] [place] [address] Jun, [facility] [id number] [place] [address] Jun, [facility] [id number] [place] [address] Jun, [facility] [id number] [place] [address] Jun, [facility] [id number] [place] [address] May, [facility] [id number] [place] [address] May, [facility] [id number] [place] [address] May, [facility] [id number] [place] [address] Apr, [facility] [id number] [place] [address] Apr, [facility] [address] [id number] [place] [address] Apr, [facility] [id number] [place] [address] Apr, [facility] [id number] [place] [address] Apr, [facility] [id number] [place] [address] Apr, [facility] [id number] [place] [address] Mar, [facility] [id number] [place] [address] Mar, [facility] [id number] [place] [address] Mar, [facility] [id number] [place] [address] Mar, [facility] [id number] [place] [address] Feb, [facility] [id number] [place] [address] Feb, [facility] [id number] [place] [address] Feb, [facility] [id number] [place] [address] Feb, [facility] [id number] [place] [address] Feb, [facility] [id number] [place] [address] Feb, [facility] [id number] [place] [address] Feb, [facility] [id number] [place] [address] Feb, [facility] [id number] [place] [address] Feb, [facility] [id number] [place] [address] Feb, [facility] [id number] [place] [address] Feb, [facility] [id number] [place] [address] Feb, [facility] [id number] [place] [address] Feb, [facility] [id number] [place] [address] Feb, [facility] [id number] [place] [address] Feb, [facility] [id number] [place] [address] Feb, [facility] [address] [facility] [id number] [place] [address] 31 Jan, 2011 [facility] [id number] [place] [address] 31 Jan, 2012 [facility] [id number] [place] [address] Jan, [facility] [id number] [place] [address] 31 Jan, 2011 [facility] [id number] [place] [address] 30 Jan, 2012 [facility] [id number] [place] [address] Jan, [facility] [id number] [place] [address] Jan, [facility] [id number] [place] [address] 16 Jan, 2012 [facility] [id number] [place] [address] 16 Jan, 2012 [facility] [id number] [place] [address] Jan, [facility] [id number] [place] [address] 15 Jan, 2012 [facility] [id number] [place] [address] Jan, [facility] [id number] [place] [address] 26 Dec, 2011 [facility] [id number] [place] [address] 26 Dec, 2011 [facility] [id number] [place] [address] 24 Dec, 2011 [facility] [id number] [place] [address] 23 Dec, 2011 [facility] [address] [place] [id number] [place] [address] 22 Sep, 2011 [facility] [id number] [place] [address] 21 Dec, 2011 [facility] [id number] [place] [address] 20 Sep, 2011 [facility] [address] [id number] [place] [address] 20 Sep, 2011 [facility] [id number] [place] [address] 07 Sep, 2011 [facility] [id number] [place] [address] 06 Sep, 2011 [facility] [id number] [place] [address] 06 Sep, 2011 [facility] [id number] [place] [address] 05 Sep, 2011 [facility] [id number] [place] [address] 23 Nov, 2011 [facility] [id number] [place] [address] 17 Nov, 2011 [facility] [id number] [place] [address] 13 Nov, 2011 [facility] [id number] [place] [address] 10 Nov, 2011 [facility] [id number] [place] [address] 08 Nov, 2011 [facility] [id number] [place] [address] Nov, [facility] [id number] [place] [address] Nov, 2011 [facility] [id number] [place] [address] Nov, 2011 [facility] [id number] [place] [address] Oct, [facility] [address] [id number] [place] [address] Oct, [facility] [id number] [place] [address] Oct, [facility] [id number] [place] [address] Oct, [facility] [id number] [place] [address] Oct, [facility] [id number] [place] [address] Oct, [facility] [id number] [place] [address] Oct, [facility] [id number] [place] [address] Sep, [facility] [id number] [place] [address] Sep, [facility] [id number] [place] [address] August, [facility] [id number] [place] [address] August, [facility] [id number] [place] [address] August, [facility] [id number] [place] [address] August, [facility] [id number] [place] [address] Jul, [facility] [address] [id number] [place] [address] Jul, [facility] [id number] [place] [address] Jul, [facility] [id number] [place] [address] Jul, [facility] [id number] [place] [address] 04 Jul, 2011 [facility] [address] [id number] [place] [address] Jul, [facility] [id number] [place] [address] Jul, [facility] [id number] [place] [address] Jul, [facility] [id number] [place] [address] Jul, [facility] [id number] [place] [address] Jun, [facility] [id number] [place] [address] Jun, [facility] [id number] [place] [address] 15 Jun, 2011 [facility] [id number] [place] [address] 14 Jun, 2011 [facility] [id number] [place] [address] Jun, [facility] [id number] [place] [address] Jun, [facility] [id number] [place] [address] Jun, [facility] [id number] [place] [address] May, [facility] [id number] [place] [address] 24 May, 2011 [facility] [id number] [place] [address] 16 May, 2011 [facility] [id number] [place] [address] 16 May, 2011 [facility] [id number] [place] [address] May, [facility] [id number] [place] [address] Apr, [facility] [id number] [place] [address] Apr, [facility] [id number] [place] [address] Apr, [facility] [id number] [place] [address] Apr, [facility] [id number] [place] [address] Apr, [facility] [id number] [place] [address] Mar, [facility] [id number] [place] [address] Mar, [facility] [id number] [place] [address] Mar, [facility] [id number] [place] [address] Mar, [facility] [id number] [place] [address] Mar, [facility] [id number] [place] [address] Mar, [facility] [id number] [place] [address] Mar, [facility] [id number] [place] [address] Feb, [facility] [id number] [place] [address] Feb, [facility] [id number] [place] [address] 08 Feb, 2011 [facility] [id number] [place] [address] Feb, [facility] [id number] [place] [address] Jan, [facility] [id number] [place] [address] Jan, [facility] [id number] [place] [address] Jan, [facility] [id number] [place] [address] Jan, [facility] [id number] [place] [address] Nov, [facility] [id number] [place] [address] Mar, [facility] [id number] [place] [address] Mar, [facility] [id number] [place] [address] Mar, [facility] [id number] [place] [address] Mar, [facility] [id number] [place] [address] Mar, [facility] [id number] [place] [address] Mar, [facility] [id number] [place] [address] Feb, [facility] [id number] [place] [address] Feb, [facility] [id number] [place] [address] Jan, [facility] [id number] [place] [address] Jan, [facility] [id number] [place] [address] Jan, IMMUNIZATIONS No Known Immunizations SOCIAL HISTORY [...] History CPAP Noncompliance_ Dr. Madden advises a [employer] driving. Medical History Bacterial meningitis 12/2016 Medical [...] 09-2015 & 2007 Surgical History Bladder surgery [facility] 03/2016 Surgical History Neurotransmitter placed 10/2017 [...]
--- OUTSIDE RECORDS SUMMARY | 2019-08-01 09:58 | XMS REPORT ---
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 Name Role Phone ZHANE BOSCH Unavailable PROBLEMS Type Condition ICD9-CM Code OSE57-HH Code Onset Dates Condition S tatus SNOMED Code Problem Generalized anxiety disorder F41.1 A ctive 93304378 Problem Low back pain M54.5 Active 464061 009 Problem Insomnia G47.00 Active 969893839 Problem Hypothyroid E03.9 Active 33291134 Problem Palpitations R00.2 Active 9662512 2 Problem Asthma J45.909 Active 834853105 Problem Mixed stress and urge urinary incontinence N39.46 Active 031349092 Problem Fibromyalgia M79.7 Active 5774260 05 Problem Stage 3 chronic kidney disease N18.3 Active 649808183 Problem Body mass index (BMI) of 40.0-44.9 in adult Z68.41 Active 502119760 Problem Seasonal allergic rhinitis due to pollen J30.1 Active 82757418 Problem Atherosclerosis of habematolel co ronary artery of habematolel heart with angina pectoris I25.119 Active 3399022329972 Problem Primary osteoarthritis of left knee M17.12 Active 393303457 Problem Hypercholesterolemia E78.00 Active 49387561 Problem Essential (primary) hypertension I10 Active 74039141 Problem Restless leg syndrome G25.81 Active 53079608 Problem Chronic pain syndrome G89.4 Active 078855635 Problem Perimenopausal vasomotor symptoms N95.1 Active 339848703 Problem Major depressive disorder, recurrent, moderate F33 .1 Active 642055081 ALLERGIES No Information ENCOUNTERS Encounter Location Date Diagnosis [facility] [id number] [place] [address] Jun, [facility] [id number] [place] [address] Jun, [facility] [address] [address] Jun, Chronic pain syndrome G89.4 [facility] [address] [address] May, Cystitis N30.90 [place] [address] [address] May, [facility] [address] [address] May, [facility] [address] [address] [facility] [id number] [address] [address] May, Chronic pain syndrome G89.4 [place] [address] [address] May, Generalized anxiety disorder F41.1 and M ajor depressive disorder, recurrent episode with anxious distress F33.9 [place] [address] [address] Apr, Major depressive disorder, recurrent, mo derate F33.1 ; Generalized anxiety disorder F41.1 and Dysthymic disorder F34.1 [place] [address] [address] Apr, Chronic pain syndrome G89.4 [place] [address] [address] Apr, Acute pain of right knee M25.561 [place] [address] [address] Apr, [place] [address] [address] Mar, Major depressive disorder, recurrent, mo derate F33.1 ; Generalized anxiety disorder F41.1 and Dysthymic disorder F34.1 [facility] [address] [facility] [id number] [address], [place] [address] Mar, Fluid collection of middle e ar H65.90 and Dizziness R42 [place] [address] [address] Mar, [facility] [address] [address] Mar, [place] [address] [address] Mar, Essential (primary) hypertension I10 ; S tage 3 chronic kidney disease N18.3 ; Hypercholesterolemia E78.00 ; Asthma J45.909 ; Recurrent UTI N39.0 ; Status post shoulder surgery Z98.890 and Encounter for immunization Z23 [place] [address] [address] Mar, Chronic pain syndrome G89.4 [place] [address] [address] Feb, [place] [address] [address] Feb, [place] [address] [address] Feb, Oral thrush B37.0 and Sore throat J02.9 [place] [address] [address] Feb, Chronic pain syndrome G89.4 [place] [address] [address] Jan, [place] [address] [address] Jan, Chronic pain syndrome G89.4 [facility] [address] [address] Jan, Hypercholesterolemia E78.00 [place] [address] [address] Jan, [place] [address] [address] Dec, Chronic kidney disease, stage 4 (severe) N18.4 [place] [address] [address] Dec, Major depressive disorder, recurrent, mo derate F33.1 ; Generalized anxiety disorder F41.1 and Dysthymic disorder F34.1 [place] [address] [address] Dec, Generalized anxiety disorder F41.1 and M ajor depressive disorder, recurrent episode with anxious distress F33.9 [place] [address] [address] Dec, [place] [address] [address] Dec, [place] [address] [address] Dec, Encounter for immunization Z23 [address] [address] Dec, Diarrhea, unspecified type R19.7 and Hem orrhoids, unspecified hemorrhoid type K64.9 [place] [address] [address] Dec, Encounter for Medicare annual wellness e xam Z00.00 ; Chronic kidney disease, stage 4 (severe) N18.4 ; Encounter for immunization Z23 ; Major depressive disorder, recurrent, moderate F33.1 ; Atherosclerosis of habematolel coronary artery of habematolel heart with angina pectoris I25.119 ; Asthma J45.909 ; Hypothyroid E03.9 and Fibromyalgia M79.7 [place] [address] [address] Dec, Chronic pain syndrome G89.[address] [address] Nov, Major depressive disorder, recurrent, mo derate F33.1 ; Generalized anxiety disorder F41.1 and Dysthymic disorder F34.1 [place] [address] [address] Nov, [place] [address] [address] Nov, Chronic pain syndrome G89.4 [place] [address] [address] Nov, Restless leg syndrome G25.81 [place] [address] [address] Nov, Pain in right shoulder M25.511 ; Restles s leg syndrome G25.81 ; Other chronic pain G89.29 ; Screening for breast cancer Z12.39 ; Insomnia G47.00 and Morbid obesity E66.01 [place] [address] [address] Nov, [place] [address] [address] Oct, Major depressive disorder, recurrent, mo derate F33.1 ; Generalized anxiety disorder F41.1 and Dysthymic disorder F34.1 [place] [address] [address] Oct, [place] [address] [address] Oct, Cellulitis of left lower extremity L03.1 16 and Morbid obesity E66.01 [facility] [id number] [place] [address] Oct, [place] [address] [address] Oct, [place] [address] [address] Oct, Generalized anxiety disorder F41.1 and M shiraor depressive disorder, recurrent episode with anxious distress F33.9 [facility] [address] [id number] [place] [address] Oct, [facility] [address] [address] Oct, Chronic pain syndrome G89.4 [facility] [id number] [place] [address] Oct, Chronic pain syndrome G89.4 [facility] [address] [facility] [id number] [address] [place] [address] Oct, UTI symptoms R39.9 ; Acute c ystitis without hematuria N30.00 and Morbid obesity E66.01 [facility] [address] [address] Oct, [facility] [address] [address] Oct, Chronic pain syndrome G89.4 [facility] [address] [address] Sep, [facility] [address] [address] Sep, Generalized anxiety disorder F41.1 and M shiraor depressive disorder, recurrent episode with anxious distress F33.9 [facility] [id number] [place] [address] 17 Sep, 2018 Chronic kidney disease, stage 4 (severe) N18.4 [place] [address] [address] 2018 Fibromyalgia M79.7 and Chronic pain synd lisseth G89.4 [facility] [id number] [place] [address] Sep, [facility] [address] [place] [address] Sep, Chronic pain syndrome G89.4 [facility] [id number] [place] [address] Sep, [place] [address] [address] 05 Sep, 2018 Chronic pain syndrome G89.4 ; Fibromyalg ia M79.7 and Morbid obesity E66.01 [facility] [address] [address] August, Generalized anxiety disorder F41.1 and M zion depressive disorder, recurrent episode with anxious distress F33.9 [place] [address] [address] August, Fibromyalgia M79.7 [place] [address] [address] August, Restless leg syndrome G25.81 ; Vitamin D deficiency E55.9 ; Urinary tract infection without hematuria, site unspecified N39.0 ; Pain in right shoulder M25.511 ; Other chronic pain G89.29 ; Biceps tendinitis on right M75.21 and Morbid obesity E66.01 [place] [address] [address] Jul, Urinary tract infection without hematuri a, site unspecified N39.0 and Morbid obesity E66.01 [address] [address] [address] Jul, [place] [address] [address] Jul, [place] [address] [address] Jul, Fibromyalgia M79.7 [place] [address] [address] Jul, Acute pain of right shoulder M25.511 [place] [address] [address] Jul, Acute pain of right shoulder M25.511 and Morbid obesity E66.01 [address] [address] [address] Jun, [place] [address] [address] Jun, Generalized anxiety disorder F41.1 and M zion depressive disorder, recurrent episode with anxious distress F33.9 [address] [address] [address] Jun, [facility] [address] [address] Jun, Fibromyalgia M79.7 [facility] [address] [facility] [id number] [address] [place] [address] 04 Jun, 2018 Acute pain of right shoulder M25.511 ; Acute pain of right hip M25.551 and Morbid obesity E66.01 [address] [address] [address] 11 May, 2018 Burning with urination R30.0 ; Vaginal d ischarge N89.8 ; Chronic kidney disease, stage 4 (severe) N18.4 ; Body mass index (BMI) of 40.0-44.9 in adult Z68.41 and Morbid obesity E66.01 [place] [address] [address] 07 May, 2018 Fibromyalgia M79.7 [address] [address] [address] 06 May, 2018 Generalized anxiety disorder F41.1 and M ajor depressive disorder, recurrent episode with anxious distress F33.9 [address] [address] [address] Apr, [place] [address] [address] Apr, Fibromyalgia M79.7 [facility] [address] [facility] [id number] [address] [place] [address] Mar, Acute UTI N39.0 and Dysuria R30.0 [address] [address] [address] Mar, Fibromyalgia M79.7 [facility] [address] [address] 15 Feb, 2018 [address] [address] [address] Feb, [place] [id number] [place] [address] Feb, [facility] [id number] [place] [address] Feb, Fibromyalgia M79.7 [facility] [id number] [place] [address] 08 Feb, 2018 Complicated UTI (urinary tract infection ) N39.0 [facility] [address] [address] Feb, [facility] [address] [address] Jan, Generalized anxiety disorder F41.1 and M ajor depressive disorder, recurrent episode with anxious distress F33.9 [facility] [address] [address] [facility] [id number] [address] [place] [address] Jan, Acute conjunctivitis of left eye, unspecified acute conjunctivitis type H10.32 [facility] [id number] [place] [address] Jan, [facility] [address] [address] Jan, Acute non-recurrent maxillary sinusitis J01.00 ; Dysuria R30.0 ; Perimenopausal vasomotor symptoms N95.1 and Fibromyalgia M79.7 [address] [address] 28 Dec, 2017 Vitamin D deficiency E55.9 [facility] [address] [address] 27 Dec, 2017 Vitamin D deficiency E55.9 [facility] [address] [address] 24 Dec, 2017 Vitamin D deficiency E55.9 [facility] [address] [address] 12 Dec, 2017 [address] [address] [address] Dec, Fibromyalgia M79.7 [facility] [address] [address] Nov, [facility] [address] [address] Nov, [facility] [address] [address] Nov, [facility] [address] [address] Nov, Fibromyalgia M79.7 ; Vision changes H53. 9 ; Chest wall pain R07.89 and Chronic pain syndrome G89.4 [facility] [address] [address] Nov, [facility] [address] [address] Nov, Rash of hands R21 [facility] [address] [address] Nov, Generalized anxiety disorder F41.1 and M ajor depressive disorder, recurrent episode with anxious distress F33.9 [facility] [address] [address] Nov, Fibromyalgia M79.7 [facility] [address] [address] Nov, Complicated UTI (urinary tract infection ) N39.0 [facility] [address] [address] Oct, [facility] [address] [address] Oct, Generalized anxiety disorder F41.1 and M ajor depressive disorder, recurrent episode with anxious distress F33.9 [facility] [address] [address] Oct, [facility] [address] [address] Oct, Fibromyalgia M79.7 [place] [address] [address] Sep, Restless leg syndrome G25.81 and Restles s leg G25.81 [address] [place] [address] Sep, [address] [address] [address] Sep, Seasonal allergic rhinitis due to pollen J30.1 ; Screening for breast cancer Z12.31 ; Chest pain at rest R07.9 ; Restless leg syndrome G25.81 ; Essential (primary) hypertension I10 and Depressed F32.9 [address] [address] [address] August, Fibromyalgia M79.7 [address] [address] [address] August, [address] [address] [address] August, [address] [address] [address] August, Abnormal chest CT R93.8 [address] [address] [address] August, Generalized anxiety disorder F41.1 and M ajor depressive disorder, recurrent episode with anxious distress F33.9 [address] [address] [address] August, Abnormal chest CT R93.8 [address] [address] [address] Jul, [address] [address] [address] Jul, Chronic kidney disease, stage 4 (severe) N18.4 [address] [address] [address] Jul, [address] [address] [address] Jul, Restless leg G25.81 ; Mixed stress and u rge urinary incontinence N39.46 and Fibromyalgia M79.7 [address] [address] [address] Jul, Chronic kidney disease, stage 4 (severe) N18.4 [facility] [address] [address] Jun, Orthostatic hypotension I95.1 ; Chronic kidney disease, stage 4 (severe) N18.4 ; Chest wall discomfort R07.89 and Body mass index (BMI) of 40.0- 44.9 in adult Z68.41 [address] [address] [address] Jun, [address] [address] [address] Jun, Orthostatic hypotension I95.1 [address] [address] [address] Jun, [facility] [address] [address] [facility] [id number] [address] [place] [address] Jun, Orthostatic hypotension I95. 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 [facility] [address] [address] May, Chronic kidney disease, stage 4 (severe) N18.4 [facility] [address] [address] May, Chronic kidney disease, stage 4 (severe) N18.4 [facility] [address] [address] May, Abnormal chest [address] R93.8 [facility] [address] [address] May, [facility] [address] [address] May, [facility] [address] [address] May, Generalized anxiety disorder F41.1 and M zion depressive disorder, recurrent episode with anxious distress F33.9 [facility] [address] [address] May, Mood disorder F39 [facility] [address] [address] Apr, [facility] [address] [address] Apr, Infected skin lesion L08.[address] rain of right shoulder region, initial encounter S46.911A [facility] [address] [address] Apr, Generalized anxiety disorder F41.1 and M zion depressive disorder, recurrent episode with anxious distress F33.9 [facility] [address] [address] Apr, [facility] [address] [address] Apr, Recent urinary tract infection Z87.440 a nd Hypothyroid E03.9 [place] [address] [address] Apr, Generalized anxiety disorder F41.1 and Tae donovan depressive disorder, recurrent episode with anxious distress F33.9 [place] [address] [address] Apr, Recent urinary tract infection Z87.440 [place] [address] [address] Mar, [facility] N [facility] NAMED [facility] [id number] [address] [place] [address] Mar, Dysuria R30.0 ; Acute cystit is without hematuria N30.00 and BMI 40.0-44.9, adult Z68.41 [place] [address] [address] Mar, [place] [address] [address] Mar, [place] [address] [address] Mar, Generalized anxiety disorder F41.1 and Tae donovan depressive disorder, recurrent episode with anxious distress F33.9 [place] [address] [address] Feb, Conjunctivitis, bacterial H10.9 [place] [address] [address] Feb, [facility] [address] [facility] [address] [facility] [id number] [address] [place] [address] Feb, Conjunctivitis, bacterial H1 0.9 [place] [address] [address] 15 Feb, 2017 [facility] [address] [facility] [facility] [id number] [address] [place] [address] Feb, Dysuria R30.0 ; Acute cystit is N30.00 and BMI 40.0-44.9, adult Z68.41 [place] [address] [address] Feb, [place] [address] [address] Feb, Generalized anxiety disorder F41.1 and M ajor depressive disorder, recurrent episode with anxious distress F33.9 [place] [address] [address] Feb, Mood disorder F39 and BMI 40.0-44.9, feli lt Z68.41 [place] [address] [address] Jan, [place] [address] [address] Jan, [address] [address] Jan, Hypothyroid E03.9 [place] [address] [address] Jan, [address] [address] Jan, Chronic kidney disease, unspecified N18. 9 ; Hypokalemia E87.6 ; Essential (primary) hypertension I10 ; Fibromyalgia M79.7 ; Coronary artery disease involving habematolel coronary artery of habematolel heart, angina presence unspecified I25.10 ; Hypothyroid E03.9 and Encounter for immunization Z23 [place] [address] [address] Jan, Hypothyroid E03.[address] [address] Jan, [address] [address] Dec, Vitamin D deficiency E55.[address] [address] Dec, 2016 Primary osteoarthritis of left knee M17. 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 [facility] [address] [address] 19 Dec, 2016 Fibromyalgia M79.7 [facility] [address] [address] 18 Dec, 2016 Mood disorder F39 [facility] [address] [address] 13 Dec, 2016 [place] [address] [address] 13 Dec, 2016 Generalized anxiety disorder F41.1 and M ajor depressive disorder, recurrent episode with anxious distress F33.9 [place] [address] [address] 11 Dec, 2016 [place] [address] [address] 08 Dec, 2016 Streptococcal meningitis G00.2 [place] [address] [address] 07 Dec, 2016 Streptococcal meningitis G00.2 [place] [address] [address] 07 Dec, 2016 [place] [address] [address] 06 Dec, 2016 Streptococcal meningitis G00.2 [place] [address] [address] 06 Dec, 2016 [facility] [address] [address] 06 Dec, 2016 Major depressive disorder, recurrent epi sode with anxious distress F33.9 [facility] [address] [address] Nov, Fever, unspecified fever cause R50.9 [facility] [address] [address] Nov, [place] [address] [address] Nov, Hypothyroid E03.9 [facility] [address] [address] Nov, Generalized anxiety disorder F41.1 and M zion depressive disorder, recurrent episode with anxious distress F33.9 [facility] [address] [address] Nov, [facility] [id number] [place] [id number] Oct, Dental examination Z01.20 [facility] [address] [address] Oct, Generalized anxiety disorder F41.1 and M zion depressive disorder, recurrent episode with anxious distress F33.9 [place] [address] [address] Oct, Chronic kidney disease, stage 4 (severe) N18.4 [place] [address] [address] Oct, [place] [address] [address] Oct, Fibromyalgia M79.7 [place] [address] [address] Oct, [place] [address] [address] Oct, Generalized anxiety disorder F41.1 ; Fady or depressive disorder, recurrent episode with anxious distress F33.9 and Bipolar disorder, current episode manic without psychotic features F31.10 [facility] [address] [address] Sep, [facility] [address] [address] Sep, [facility] [address] [address] Sep, Vitamin D deficiency E55.9 [place] [address] [address] Sep, Vitamin D deficiency E55.9 [place] [address] [address] Sep, [place] [address] [address] Sep, Chronic kidney disease, stage 4 (severe) N18.4 ; Hypothyroid E03.9 ; Restless leg G25.81 ; Fibromyalgia M79.7 ; Essential (primary) hypertension I10 ; Vitamin D deficiency E55.9 ; Dyspepsia R10.13 ; Anemia in chronic kidney disease D63.1 ; Chronic kidney disease, unspecified N18.9 ; Coronary artery disease involving habematolel coronary artery of habematolel heart, angina presence unspecified I25.10 ; Screening breast examination Z12.39 and Low back pain M54.5 [place] [address] [address] August, Generalized anxiety disorder F41.1 and M ajor depressive disorder, recurrent episode with anxious distress F33.9 [place] [address] [address] August, Generalized anxiety disorder F41.1 and M ajor depressive disorder, recurrent episode with anxious distress F33.9 [place] [address] [address] August, Fibromyalgia M79.7 [place] [address] [address] Jul, Generalized anxiety disorder F41.1 and M ajor depressive disorder, recurrent episode with anxious distress F33.9 [place] [address] [address] Jul, Fibromyalgia M79.7 [place] [address] [address] Jul, Generalized anxiety disorder F41.1 [place] [address] [address] May, [place] [address] [address] May, Hypothyroid E03.9 [place] [address] [address] 08 May, 2016 Chronic kidney disease, stage 4 (severe) N18.4 ; Hypothyroid E03.9 ; Restless leg G25.81 ; Fibromyalgia M79.7 ; Essential (primary) hypertension I10 ; Vitamin D deficiency E55.9 ; Dyspepsia R10.13 ; Acute non-recurrent maxillary sinusitis J01.00 ; Anemia in chronic kidney disease D63.1 ; Chronic kidney disease, unspecified N18.9 and Coronary artery disease involving habematolel coronary artery of habematolel heart, angina presence unspecified I25.10 [place] [address] [address] May, Vitamin D deficiency, unspecified E55.9 [place] [address] [address] May, Generalized anxiety disorder F41.1 and M shiraor depressive disorder, recurrent episode with anxious distress F33.[address] [address] Apr, Pain in right knee M25.561 and Pain in l eft knee M25.[address] [address] Apr, [address] [address] Apr, [address] [address] Apr, [address] [address] Mar, Generalized anxiety disorder F41.1 and M shiraor depressive disorder, recurrent episode with anxious distress F33.[address] [address] Mar, Generalized anxiety disorder F41.1 and Tae donovan depressive disorder, recurrent episode with anxious distress F33.9 [place] [address] [address] Mar, [place] [address] [address] Mar, [place] [address] [address] Mar, [place] [address] [address] Mar, Asthma J45.909 and Fibromyalgia M79.[address] [address] Mar, Chronic kidney disease, stage 4 (severe) N18.4 ; Vitamin D deficiency E55.9 and Essential (primary) hypertension I10 [address] [address] Feb, [place] [address] [address] Feb, Dysuria R30.0 ; Mixed stress and urge ur inary incontinence N39.46 ; Fibromyalgia M79.7 and Chronic kidney disease, stage IV (severe) N18.4 [place] [address] [address] Feb, Chronic kidney disease, stage 4 (severe) N18.4 [place] [address] [address] Feb, Chronic kidney disease, stage 4 (severe) N18.4 [place] [address] [address] Feb, [address] [address] Feb, Vitamin D deficiency, unspecified E55.9 [place] [address] [address] Jan, [facility] [address] [address] Jan, [facility] [address] [address] Dec, [facility] [address] [address] Dec, Chronic kidney disease, stage 4 (severe) N18.4 [facility] [address] [address] Dec, Dysthymic disorder F34.1 and Generalized anxiety disorder F41.1 [place] [address] [address] Dec, [place] [address] [address] Dec, [place] [address] [address] Dec, Dysthymic disorder F34.1 and Generalized anxiety disorder F41.1 [place] [address] [address] Dec, Dysuria R30.0 ; Chronic kidney disease, stage 4 (severe) N18.4 ; Hypertension I10 ; Dyspepsia R10.13 ; Yeast dermatitis B37.2 ; Palpitations R00.2 ; Hypothyroid E03.9 ; Functional diarrhea K59.1 and Other seasonal allergic rhinitis J30.2 [facility] [address] [place] [id number] [address] [place] [address] Dec, [facility] [address] [place] [id number] [address] [place] [address] Nov, Dysuria R30.0 and Stress inc ontinence N39.3 [facility] [address] [address] Nov, [facility] [address] [address] Nov, [place] [address] [address] Nov, Osteoarthritis of knees, bilateral M17.0 [place] [address] [address] Nov, Dysthymic disorder F34.1 and Generalized anxiety disorder F41.1 [place] [address] [address] Nov, [place] [address] [address] Nov, [place] [address] [address] Nov, Urgency of urination R39.15 [place] [address] [address] Nov, [place] [address] [address] Nov, Chronic kidney disease, stage 4 (severe) N18.4 [place] [address] [address] Oct, Hypertension I10 ; Coronary artery disea se involving habematolel coronary artery of habematolel heart, angina presence unspecified I25.10 ; Palpitations R00.2 ; Hypothyroid E03.9 ; Right foot pain M79.671 ; Functional diarrhea K59.1 and Other seasonal allergic rhinitis J30.2 [place] [address] [address] Oct, Dysthymic disorder F34.1 and Generalized anxiety disorder F41.1 [place] [address] [address] Sep, [place] [address] [address] Sep, [place] [address] [address] Sep, [place] [address] [address] 30 Sep, 2015 [place] [address] [address] Sep, [place] [address] [address] 27 Sep, 2015 Dysthymic disorder F34.1 and Generalized anxiety disorder F41.1 [place] [address] [address] 16 Sep, 2015 Asthma with acute exacerbation in adult J45.901 ; Dysuria R30.0 ; Chronic kidney disease, stage 4 (severe) N18.4 and History of anemia Z86.2 [place] [address] [address] 2015 Generalized anxiety disorder F41.1 and D ysthymic disorder F34.[address] [address] August, Screening breast examination Z12.39 and Acute recurrent maxillary sinusitis J01.[address] [address] August, Osteoarthritis of knees, bilateral M17.[address] [address] August, Chronic kidney disease, stage 4 (severe) N18.4 ; Acute non-recurrent maxillary sinusitis J01.00 ; Urinary problem R39.89 ; Bowel habit changes R19.4 ; Functional diarrhea K59.1 and History of colon polyps Z86.010 [place] [address] [address] Jul, Dysthymic disorder F34.1 and Generalized anxiety disorder F41.1 [place] [address] [address] Jul, [address] [address] Jul, Dysthymic disorder F34.1 ; Generalized a nxiety disorder F41.1 and 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.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 [place] [address] [address] Jul, [facility] [address] [address] Jun, [place] [address] [address] Jun, [place] [address] [address] May, [place] [address] [address] May, Dysthymic disorder F34.1 and Generalized anxiety disorder F41.1 [place] [address] [address] Apr, Kidney disease N28.9 [place] [address] [address] Apr, Generalized anxiety disorder F41.1 and D ysthymic disorder F34.1 [place] [address] [address] Apr, Chronic kidney disease, stage 4 (severe) N18.4 [place] [address] [address] Apr, Generalized anxiety disorder F41.1 ; Fady or depression, recurrent F33.9 and Sleep disturbance G47.9 [place] [address] [address] Mar, Generalized anxiety disorder F41.1 and D ysthymic disorder F34.1 [place] [address] [address] Mar, Generalized anxiety disorder F41.1 ; 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 and Insomnia G47.00 [place] [address] [address] Mar, [place] [address] [address] Mar, [place] [address] [address] Mar, Osteoarthritis of knees, bilateral M17.0 [place] [address] [address] Mar, Hypertension I10 ; Hypothyroid E03.9 ; D ysthymic disorder F34.1 ; Chronic kidney disease, stage 4 (severe) N18.4 and Nausea & vomiting R11.2 [place] [address] [address] Mar, Generalized anxiety disorder F41.1 ; 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 and Insomnia G47.00 [place] [address] [address] Mar, Dehydration E86.0 ; Chronic kidney disea se, stage 4 (severe) N18.4 and Nausea & vomiting R11.2 [facility] [address] [address] [facility] [id number] [place] [address] Mar, Gastroenteritis K52.9 [place] [address] [address] Mar, [place] [address] [address] Mar, [place] [address] [address] Feb, Dysthymic disorder F34.1 and Generalized anxiety disorder F41.1 [place] [address] [address] Jan, UTI (urinary tract infection) N39.0 ; As thma J45.909 ; Coronary artery disease involving habematolel coronary artery of habematolel heart, angina presence unspecified I25.10 ; Hypertension I10 ; Hypothyroid E03.9 ; Vitamin D deficiency E55.9 ; Insomnia G47.00 ; Palpitations R00.2 ; Depressed F32.9 ; Restless leg G25.81 and Anxiety F41.9 [place] [address] [address] Jan, Dysthymic disorder F34.1 and Generalized anxiety disorder F41.1 [place] [address] [address] Jan, [place] [address] [address] Dec, [place] [address] [address] 28 Dec, 2014 Alkalosis 276.3 ; Chronic kidney disease , Stage IV (severe) 585.4 ; Hyperpotassemia 276.7 ; Secondary hyperparathyroidism, renal 588.81 ; Proteinuria 791.0 ; Unspecified vitamin D deficiency 268.9 ; Anemia in chronic kidney disease 285.21 ; Other and unspecified hyperlipidemia 272.4 ; Hypertension, essential, benign 401.1 and Chronic kidney disease (CKD), stage III (moderate) 585.3 [place] [address] [address] Dec, [address] [address] Dec, Depressive disorder, not elsewhere class ified 311 and Generalized anxiety disorder 300.02 [place] [address] [address] Dec, [place] [address] [address] 08 Dec, 2014 [place] [address] [address] Nov, Depressive disorder, not elsewhere class ified 311 and Generalized anxiety disorder 300.02 [place] [address] [address] Nov, Arthritis of both knees 716.[address] [address] 07 Nov, 2014 PAF (paroxysmal atrial fibrillation) 427 .31 ; CAD (coronary artery disease) 414.00 ; Chest pain 786.50 and Chronic kidney disease (CKD) stage G4/A1, severely decreased glomerular filtration rate (GFR) between 15-29 mL/min/1.73 square meter and albuminuria creatinine ratio less than 30 mg/g 585.4 [place] [address] [address] Oct, Coronary atherosclerosis of unspecified type of vessel, habematolel or graft 414.00 ; Chronic kidney disease, Stage IV (severe) 585.4 ; Hypertension 401.9 and Edema 782.[address] [address] Oct, Depressive disorder, not elsewhere class ified 311 and Generalized anxiety disorder 300.[address] [address] Oct, Depressive disorder, not elsewhere class ified 311 and Generalized anxiety disorder 300.02 [place] [address] [address] Oct, [address] [address] Oct, [address] [address] Sep, [address] [address] Sep, Chronic kidney disease, Stage IV (severe ) 585.4 [place] [address] [address] Sep, [address] [address] Sep, Coronary atherosclerosis of unspecified type of vessel, habematolel or graft 414.00 ; Hypertension 401.9 ; Edema 782.3 and Hypothyroidism 244.[address] [address] Sep, Coronary atherosclerosis of unspecified type of vessel, habematolel or graft 414.00 ; Hypertension 401.9 ; Fibromyalgia 729.1 ; Edema 782.3 ; Hypothyroidism 244.9 and Anemia 285.9 [facility] [address] [address] Sep, Anxiety disorder, unspecified 300.00 and Depressive disorder, not elsewhere classified 311 [facility] [address] [address] Sep, [facility] [address] [address] August, Generalized anxiety disorder 300.02 [facility] [address] [address] August, Closed fracture of lateral malleolus 824 .2 [facility] [address] [address] Jul, [facility] [address] [address] Jul, [facility] [address] [address] Jun, [facility] [address] [address] Jun, [facility] [address] [address] Jun, [facility] [address] [address] Jun, [facility] [address] [address] Jun, [facility] [address] [address] Jun, [facility] [address] [address] May, [facility] [address] [address] May, [facility] [address] [address] 18 May, 2014 [facility] [address] [facility] [address] [facility] [id number] [place] [address] 18 May, 2014 [facility] [address] [id number] [place] [address] 16 May, 2014 [facility] [address] [id number] [place] [address] 16 May, 2014 [facility] [address] [id number] [place] [address] 13 May, 2014 [facility] [address] [id number] [place] [address] 13 May, 2014 [facility] [address] [id number] [place] [address] 10 May, 2014 [facility] [address] [id number] [place] [address] 10 May, 2014 [facility] [address] [id number] [place] [address] Apr, [facility] [address] [id number] [place] [address] Apr, [facility] [address] [id number] [place] [address] Mar, [facility] [address] [id number] [place] [address] Mar, [facility] [address] [id number] [place] [address] Mar, [facility] [address] [id number] [place] [address] 15 Mar, 2014 [facility] [address] [id number] [place] [address] 15 Mar, 2014 [facility] [address] [id number] [place] [address] 15 Mar, 2014 [facility] [address] [id number] [place] [address] Mar, [facility] [address] [facility] [address] [facility] [id number] [place] [address] Feb, [facility] [address] [id number] [place] [address] Feb, [facility] [address] [id number] [place] [address] Feb, [facility] [address] [id number] [place] [address] Jan, [facility] [address] [facility] [id number] [place] [address] Jan, [facility] [address] [id number] [place] [address] Jan, [facility] [address] [id number] [place] [address] Jan, [facility] [address] [id number] [place] [address] Jan, [facility] [address] [id number] [place] [address] Jan, [facility] [address] [id number] [place] [address] Jan, [facility] [address] [id number] [place] [address] Jan, [facility] [address] [id number] [place] [address] Jan, [facility] [address] [id number] [place] [address] Jan, [facility] [address] [facility] [id number] [place] [address] Nov, [facility] [address] [id number] [place] [address] Nov, [facility] [address] [id number] [place] [address] Nov, [facility] [address] [id number] [place] [address] Oct, [facility] [address] [facility] [id number] [facility] [place] [address] Oct, [facility] [address] [facility] [facility] [id number] [facility] [place] [address] Oct, [facility] [address] [id number] [facility] [place] [address] Oct, 2013 [facility] [address] [facility] [id number] [facility] [place] [address] Oct, 2013 [facility] [address] [facility] [address] [facility] [id number] [facility] [place] [address] Oct, [facility] [address] [facility] [id number] [place] [address] Oct, [facility] [address] [id number] [place] [address] Oct, [facility] [address] [id number] [place] [address] Oct, [facility] [address] [facility] [id number] [place] [address] Sep, [facility] [address] [id number] [place] [address] Sep, [facility] [address] [id number] [place] [address] Sep, [facility] [address] [id number] [place] [address] Sep, [facility] [address] [address] [facility] [id number] [facility] [place] [address] Sep, [facility] [address] [address] [facility] [id number] [place] [address] Sep, [facility] [address] [facility] [id number] [place] [address] Sep, [facility] [address] [id number] [place] [address] Sep, [facility] [address] [id number] [place] [address] Sep, [facility] [address] [id number] [place] [address] August, [facility] [address] [id number] [place] [address] August, [facility] [address] [id number] [place] [address] August, [facility] [address] [id number] [place] [address] August, [facility] [address] [id number] [place] [address] August, [facility] [address] [id number] [place] [address] August, [facility] [address] [id number] [place] [address] Jul, [facility] [address] [id number] [place] [address] Jul, [facility] [address] [id number] [place] [address] Jul, [facility] [address] [id number] [place] [address] Jul, [facility] [address] [id number] [place] [address] Jul, [facility] [address] [id number] [place] [address] Jul, [facility] [address] [id number] [place] [address] Jun, [facility] [address] [id number] [place] [address] Jun, [facility] [address] [id number] [place] [address] May, [facility] [address] [id number] [place] [address] May, [facility] [address] [facility] [id number] [place] [address] May, [facility] [address] [id number] [place] [address] May, [facility] [address] [id number] [place] [address] Apr, [facility] [address] [id number] [place] [address] Apr, [facility] [address] [id number] [place] [address] Mar, [facility] [address] [id number] [place] [address] Mar, [facility] [address] [id number] [place] [address] Mar, [facility] [address] [place] [id number] [place] [address] 17 Mar, 2013 [facility] [address] [id number] [place] [address] Mar, [facility] [address] [id number] [place] [address] 05 Mar, 2013 [facility] [address] [id number] [place] [address] Feb, [facility] [address] [id number] [place] [address] Feb, [facility] [address] [id number] [place] [address] 14 Feb, 2013 [facility] [address] [id number] [place] [address] 14 Feb, 2013 [facility] [address] [id number] [place] [address] 05 Feb, 2013 [facility] [address] [id number] [place] [address] 05 Feb, 2013 [facility] [address] [id number] [place] [address] Jan, [facility] [address] [facility] [facility] [id number] [facility] [place] [address] 24 Jan, 2013 [facility] [address] [facility] [id number] [place] [address] Jan, [facility] [address] [id number] [place] [address] Jan, [facility] [address] [id number] [place] [address] 08 Jan, 2013 [facility] [address] [facility] [id number] [facility] [place] [address] Jan, [facility] [address] [id number] [place] [address] Dec, [facility] [address] [id number] [place] [address] Dec, [facility] [address] [id number] [place] [address] Nov, [facility] [address] [id number] [place] [address] Nov, [facility] [address] [id number] [place] [address] Oct, [facility] [address] [id number] [place] [address] Oct, [facility] [address] [id number] [place] [address] Oct, [facility] [address] [facility] [id number] [place] [address] Oct, [facility] [address] [id number] [place] [address] Oct, [facility] [address] [id number] [place] [address] Oct, [facility] [address] [facility] [id number] [place] [address] Sep, [facility] [address] [id number] [place] [address] Sep, [facility] [address] [id number] [place] [address] Sep, [facility] [address] [facility] [id number] [place] [address] Sep, [facility] [address] [facility] [id number] [place] [address] August, [facility] [address] [facility] [id number] [place] [address] August, [facility] [address] [facility] [id number] [place] [address] August, [facility] [address] [facility] [id number] [place] [address] August, [facility] [address] [facility] [id number] [place] [address] August, [facility] [address] [facility] [id number] [place] [address] Jul, [facility] [address] [facility] [id number] [place] [address] Jul, [facility] [address] [facility] [id number] [place] [address] Jul, [facility] [address] [facility] [id number] [place] [address] Jul, [facility] [address] [facility] [id number] [place] [address] Jul, [facility] [address] [facility] [id number] [place] [address] Jul, [facility] [address] [facility] [id number] [place] [address] Jul, [facility] [address] [facility] [id number] [place] [address] Jul, [facility] [address] [id number] [place] [address] Jul, [facility] [address] [id number] [place] [address] Jul, [facility] [address] [id number] [place] [id number] Jun, [facility] [address] [id number] [place] [address] Jun, [facility] [address] [id number] [place] [address] Jun, [facility] [address] [id number] [place] [address] Jun, [facility] [address] [id number] [place] [address] Jun, [facility] [address] [id number] [place] [address] May, [facility] [address] [id number] [place] [address] May, [facility] [address] [id number] [place] [address] May, [facility] [address] [id number] [place] [address] Apr, [facility] [address] [id number] [place] [address] Apr, [facility] [address] [id number] [place] [address] Apr, [facility] [address] [id number] [place] [address] Apr, [facility] [address] [id number] [place] [address] Apr, [facility] [address] [id number] [place] [address] Apr, [facility] [address] [id number] [place] [address] Mar, [facility] [address] [id number] [place] [address] Mar, [facility] [address] [id number] [place] [address] Mar, [facility] [address] [facility] [id number] [place] [address] Mar, [facility] [address] [id number] [place] [address] Feb, [facility] [address] [id number] [place] [address] Feb, [facility] [address] [id number] [place] [address] Feb, [facility] [address] [id number] [place] [address] Feb, [facility] [address] [id number] [place] [address] Feb, [facility] [address] [id number] [place] [address] Feb, [facility] [address] [id number] [place] [address] Feb, [facility] [address] [facility] [id number] [place] [address] Feb, [facility] [address] [id number] [place] [address] Feb, [facility] [address] [id number] [place] [address] Feb, [facility] [address] [facility] [id number] [place] [address] Feb, [facility] [address] [id number] [place] [address] Feb, [facility] [address] [facility] [id number] [place] [address] Feb, [facility] [address] [id number] [place] [address] Feb, [facility] [address] [id number] [place] [address] 05 Feb, 2012 [facility] [address] [id number] [place] [address] Feb, [facility] [address] [facility] [id number] [place] [address] Jan, [facility] [address] [facility] [id number] [place] [address] Jan, [facility] [address] [id number] [place] [address] Jan, [facility] [address] [id number] [place] [address] Jan, [facility] [address] [id number] [place] [address] Jan, [facility] [address] [facility] [id number] [place] [address] Jan, [facility] [address] [facility] [id number] [place] [address] Jan, [facility] [address] [id number] [place] [address] Jan, [facility] [address] [id number] [place] [address] 16 Jan, 2012 [facility] [address] [facility] [id number] [place] [address] 15 Jan, 2012 [facility] [address] [facility] [id number] [place] [address] 15 Jan, 2012 [facility] [address] [facility] [id number] [place] [address] Jan, [facility] [address] [facility] [id number] [place] [address] Dec, [facility] [address] [facility] [id number] [place] [address] 26 Dec, 2011 [facility] [address] [facility] [id number] [place] [address] 24 Sep, 2011 [facility] [address] [id number] [place] [address] 23 Sep, 2011 [facility] [address] [id number] [place] [address] 22 Sep, 2011 [facility] [address] [facility] [id number] [place] [address] 21 Sep, 2011 [facility] [address] [id number] [place] [address] 20 Sep, 2011 [facility] [address] [facility] [id number] [place] [address] 20 Sep, 2011 [facility] [address] [facility] [id number] [place] [address] 07 Sep, 2011 [facility] [address] [facility] [id number] [place] [address] 06 Sep, 2011 [facility] [address] [facility] [id number] [place] [address] 06 Sep, 2011 [facility] [address] [facility] [id number] [place] [address] 05 Sep, 2011 [facility] [address] [id number] [place] [address] 23 Nov, 2011 [facility] [address] [facility] [id number] [place] [address] 17 Nov, 2011 [facility] [address] [id number] [place] [address] 13 Nov, 2011 [facility] [address] [id number] [place] [address] 10 Nov, 2011 [facility] [address] [facility] [id number] [place] [address] 08 Nov, 2011 [facility] [address] [id number] [place] [address] 07 Nov, 2011 [facility] [address] [id number] [place] [address] 02 Nov, 2011 [facility] [address] [id number] [place] [address] Nov, [facility] [address] [facility] [id number] [facility] [place] [address] Oct, [facility] [address] [facility] [id number] [facility] [place] [address] Oct, [facility] [address] [id number] [facility] [place] [address] Oct, [facility] [address] [id number] [facility] [place] [address] Oct, [facility] [address] [facility] [id number] [facility] [place] [address] Oct, [facility] [address] [id number] [facility] [place] [address] Oct, [facility] [address] [facility] [id number] [facility] [place] [address] Oct, [facility] [address] [facility] [id number] [place] [address] Sep, [facility] [address] [facility] [id number] [facility] [place] [address] Sep, [facility] [address] [facility] [id number] [place] [address] August, [facility] [address] [facility] [id number] [place] [address] August, [facility] [address] [id number] [place] [address] August, [facility] [address] [facility] [id number] [facility] [place] [address] August, [facility] [address] [id number] [place] [address] Jul, [facility] [address] [id number] [facility] [place] [address] Jul, [facility] [address] [facility] [id number] [place] [address] Jul, [facility] [address] [id number] [place] [address] 05 Jul, 2011 [facility] [address] [id number] [place] [address] Jul, [facility] [address] [id number] [place] [address] Jul, [facility] [address] [id number] [place] [address] Jul, [facility] [address] [id number] [place] [address] Jul, [facility] [address] [id number] [place] [address] Jul, [facility] [address] [id number] [place] [address] Jun, [facility] [address] [facility] [id number] [place] [address] Jun, [facility] [address] [id number] [place] [address] 15 Jun, 2011 [facility] [address] [id number] [place] [address] 14 Jun, 2011 [facility] [address] [id number] [place] [address] Jun, [facility] [address] [facility] [id number] [place] [address] Jun, [facility] [address] [id number] [place] [address] Jun, [facility] [address] [facility] [id number] [place] [address] May, [facility] [address] [id number] [place] [address] 24 May, 2011 [facility] [address] [id number] [place] [address] 16 May, 2011 [facility] [address] [id number] [place] [address] 16 May, 2011 [facility] [address] [id number] [place] [address] May, [facility] [address] [id number] [place] [address] Apr, [facility] [address] [id number] [place] [address] Apr, [facility] [address] [id number] [place] [address] Apr, [facility] [address] [id number] [place] [address] Apr, [facility] [address] [id number] [place] [address] Apr, [facility] [address] [id number] [place] [address] Mar, [facility] [address] [id number] [place] [address] Mar, [facility] [address] [id number] [place] [address] Mar, [facility] [address] [id number] [place] [address] Mar, [facility] [address] [id number] [place] [address] Mar, [facility] [address] [id number] [place] [address] 08 Mar, 2011 [facility] [address] [id number] [place] [address] 06 Mar, 2011 [facility] [address] [facility] [id number] [place] [address] Feb, [facility] [address] [id number] [place] [address] Feb, [facility] [address] [id number] [place] [address] 08 Feb, 2011 [facility] [address] [id number] [place] [address] Feb, [facility] [address] [id number] [place] [address] Jan, [facility] [address] [id number] [place] [address] Jan, [facility] [address] [id number] [place] [address] Jan, [facility] [address] [id number] [place] [address] Jan, [facility] [address] [id number] [place] [address] Nov, [facility] [address] [id number] [place] [address] Mar, [facility] [address] [id number] [place] [address] Mar, [facility] [address] [id number] [place] [address] Mar, [facility] [address] [id number] [place] [address] Mar, [facility] [address] [id number] [place] [address] Mar, [facility] [address] [facility] [id number] [place] [address] Mar, [facility] [address] [facility] [id number] [place] [address] Feb, [facility] [address] [facility] [id number] [place] [address] Feb, [facility] [id number] [place] [address] Jan, [facility] [address] [facility] [id number] [place] [address] Jan, [facility] [address] [id number] [place] [address] Jan, IMMUNIZATIONS No Known Immunizations SOCIAL HISTORY Never Assessed REASON FOR VISIT Requests return call PLAN OF CARE VITAL SIGNS MEDICATIONS Medication Instructions Dosage Frequency Start Date End Date Duration S lorrie Fluconazole 150 MG 1 tablet now and then repeat dose i n 72 hours Jun, Active RESULTS No Results PROCEDURES No Known [...] History CPAP Noncompliance_ Dr. Madden advises a [place] driving. Medical History Bacterial meningitis 12/2016 Medical [...] 09-2015 & 2007 Surgical History Bladder surgery [facility] 03/2016 Surgical History Neurotransmitter placed 10/2017 Surgical History retninal repair 12/31/2017 Surgical History cataract surgery 2018 Surgical History cataract surgery 2019 Surgical History SCS trial x7 days 2018 Surgical History SCS implant removed. 2019 Surgical History right shoulder surgery to repair torn te ndons 02/2019 Hospitalization History Surgeries Only Hospitalization History bacterial meningitis December 2016 Hospitalization History [facility] psych for SI 1988 Hospitalization History [facility]-Altered mental status 05/2017 Hospitalization History sepsis, UTI, headache 08/03/2018-
--- OUTSIDE RECORDS SUMMARY | 2019-08-01 09:59 | XMS REPORT ---
Author Author aJhLola Doctor Organization [facility] Address Unknown Phone Unavailable Care Team Providers Care Edi Analyst Name Role Phone Migration, Doctor Unavailable Unavailable PROBLEMS Type Condition ICD9-CM Code [id number] Code Onset Dates Condition S tatus SNOMED Code Problem Generalized anxiety disorder F41.1 A ctive 35722929 Problem Low back pain M54.5 Active 341876 009 Problem Insomnia G47.00 Active 199401861 Problem Hypothyroid E03.9 Active 37994167 Problem Palpitations R00.2 Active 2473302 2 Problem Asthma J45.909 Active 832372264 Problem Mixed stress and urge urinary incontinence N39.46 Active 150467305 Problem Fibromyalgia M79.7 Active 6374325 05 Problem Stage 3 chronic kidney disease N18.3 Active 381943863 Problem Body mass index (BMI) of 40.0-44.9 in adult Z68.41 Active 782866139 Problem Seasonal allergic rhinitis due to pollen J30.1 Active 79874724 Problem 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 Active 3572890103225 Problem Primary osteoarthritis of left knee M17.12 Active 581381991 Problem Hypercholesterolemia E78.00 Active 15656034 Problem Essential (primary) hypertension I10 Active 35538717 Problem Restless leg syndrome G25.81 Active 13406840 Problem Chronic pain syndrome G89.4 Active 720929877 Problem Perimenopausal vasomotor symptoms N95.1 Active 832826294 Problem Major depressive disorder, recurrent, moderate F33 .1 Active 274544173 ALLERGIES No Information ENCOUNTERS Encounter Location Date Diagnosis [facility] [id number] [place] [address] Jun, [facility] [address] [address] Jun, [facility] [id number] [place] [address] May, Cystitis N30.90 [place] [id number] [place] [address] May, [facility] [address] [address] May, [facility] [address] [facility] [id number] [address] [address] 05 May, 2019 Chronic pain syndrome G89.4 [place] [address] [address] May, Generalized anxiety disorder F41.1 and M ajor depressive disorder, recurrent episode with anxious distress F33.9 [place] [address] [address] Apr, Major depressive disorder, recurrent, mo derate F33.1 ; Generalized anxiety disorder F41.1 and Dysthymic disorder F34.1 [place] [address] [address] Apr, Chronic pain syndrome G89.4 [place] [address] [address] Apr, Acute pain of right knee M25.561 [place] [address] [address] Apr, [place] [address] [address] Mar, Major depressive disorder, recurrent, mo derate F33.1 ; Generalized anxiety disorder F41.1 and Dysthymic disorder F34.1 [facility] [address] [facility] [id number] [address] [address] Mar, Fluid collection of middle e ar H65.90 and Dizziness R42 [place] [address] [address] Mar, [place] [address] [address] Mar, [place] [address] [address] Mar, Essential (primary) hypertension I10 ; S tage 3 chronic kidney disease N18.3 ; Hypercholesterolemia E78.00 ; Asthma J45.909 ; Recurrent UTI N39.0 ; Status post shoulder surgery Z98.890 and Encounter for immunization Z23 [place] [address] [address] Mar, Chronic pain syndrome G89.4 [place] [address] [address] Feb, [place] [address] [address] Feb, [place] [address] [address] Feb, Oral thrush B37.0 and Sore throat J02.9 [place] [address] [address] Feb, Chronic pain syndrome G89.4 [place] [address] [address] Jan, [place] [address] [address] Jan, Chronic pain syndrome G89.4 [place] [address] [address] Jan, Hypercholesterolemia E78.00 [place] [address] [address] Jan, [place] [address] [address] Dec, Chronic kidney disease, stage 4 (severe) N18.4 [place] [address] [address] Dec, Major depressive disorder, recurrent, mo derate F33.1 ; Generalized anxiety disorder F41.1 and Dysthymic disorder F34.1 [place] [address] [address] Dec, Generalized anxiety disorder F41.1 and M shiraor depressive disorder, recurrent episode with anxious distress F33.9 [place] [address] [address] Dec, [place] [address] [address] Dec, [place] [address] [address] Dec, Encounter for immunization Z23 [place] [address] [address] Dec, Diarrhea, unspecified type R19.7 and Hem orrhoids, unspecified hemorrhoid type K64.9 [place] [address] [address] Dec, Encounter for Medicare annual wellness e xam Z00.00 ; Chronic kidney disease, stage 4 (severe) N18.4 ; Encounter for immunization Z23 ; Major depressive disorder, recurrent, moderate F33.1 ; Atherosclerosis of [place] coronary artery of [place] heart with angina pectoris I25.119 ; Asthma J45.909 ; Hypothyroid E03.9 and Fibromyalgia M79.7 [place] [address] [address] Dec, Chronic pain syndrome G89.4 [place] [address] [address] Nov, Major depressive disorder, recurrent, mo derate F33.1 ; Generalized anxiety disorder F41.1 and Dysthymic disorder F34.1 [place] [address] [address] Nov, [place] [address] [address] Nov, Chronic pain syndrome G89.4 [place] [address] [address] Nov, Restless leg syndrome G25.81 [facility] [address] [address] Nov, Pain in right shoulder M25.511 ; Restles s leg syndrome G25.81 ; Other chronic pain G89.29 ; Screening for breast cancer Z12.39 ; Insomnia G47.00 and Morbid obesity E66.01 [facility] [address] [address] Nov, [place] [address] [address] Oct, Major depressive disorder, recurrent, mo derate F33.1 ; Generalized anxiety disorder F41.1 and Dysthymic disorder F34.1 [place] [address] [address] Oct, [place] [address] [address] Oct, Cellulitis of left lower extremity L03.1 16 and Morbid obesity E66.01 [facility] [address] [address] Oct, [facility] [address] [address] Oct, [place] [address] [address] Oct, Generalized anxiety disorder F41.1 and M ajor depressive disorder, recurrent episode with anxious distress F33.9 [facility] [id number] [place] [address] Oct, [facility] [address] [address] Oct, Chronic pain syndrome G89.4 [facility] [address] [address] Oct, Chronic pain syndrome G89.4 [facility] [id number] [place] [address] Oct, UTI symptoms R39.9 ; Acute c ystitis without hematuria N30.00 and Morbid obesity E66.01 [facility] [address] [address] Oct, [facility] [address] [address] Oct, Chronic pain syndrome G89.4 [facility] [address] [address] Sep, [place] [address] [address] Sep, Generalized anxiety disorder F41.1 and Tae donovan depressive disorder, recurrent episode with anxious distress F33.9 [place] [address] [address] Sep, Chronic kidney disease, stage 4 (severe) N18.4 [place] [address] [address] Sep, Fibromyalgia M79.7 and Chronic pain synd lisseth G89.4 [facility] [address] [address] Sep, [address] [place] [address] Sep, Chronic pain syndrome G89.4 [facility] [address] [address] Sep, [place] [address] [address] Sep, Chronic pain syndrome G89.4 ; Fibromyalg ia M79.7 and Morbid obesity E66.01 [facility] [address] [address] August, Generalized anxiety disorder F41.1 and Tae donovan depressive disorder, recurrent episode with anxious distress F33.9 [facility] [address] [address] August, Fibromyalgia M79.7 [place] [address] [address] August, Restless leg syndrome G25.81 ; Vitamin D deficiency E55.9 ; Urinary tract infection without hematuria, site unspecified N39.0 ; Pain in right shoulder M25.511 ; Other chronic pain G89.29 ; Biceps tendinitis on right M75.21 and Morbid obesity E66.01 [place] [address] [address] Jul, Urinary tract infection without hematuri a, site unspecified N39.0 and Morbid obesity E66.01 [place] [address] [address] Jul, [place] [address] [address] Jul, [place] [address] [address] Jul, Fibromyalgia M79.7 [place] [address] [address] Jul, Acute pain of right shoulder M25.511 [place] [address] [address] Jul, Acute pain of right shoulder M25.511 and Morbid obesity E66.01 [place] [address] [address] Jun, [place] [address] [address] Jun, Generalized anxiety disorder F41.1 and M ajor depressive disorder, recurrent episode with anxious distress F33.9 [place] [address] [address] Jun, [place] [address] [address] Jun, Fibromyalgia M79.7 [facility] [address] [facility] [id number] [address] [place] [address] 04 Jun, 2018 Acute pain of right shoulder M25.511 ; Acute pain of right hip M25.551 and Morbid obesity E66.01 [facility] [address] [address] 11 May, 2018 Burning with urination R30.0 ; Vaginal d ischarge N89.8 ; Chronic kidney disease, stage 4 (severe) N18.4 ; Body mass index (BMI) of 40.0-44.9 in adult Z68.41 and Morbid obesity E66.01 [facility] [address] [address] 07 May, 2018 Fibromyalgia M79.7 [address] [address] [address] 06 May, 2018 Generalized anxiety disorder F41.1 and M ajor depressive disorder, recurrent episode with anxious distress F33.9 [address] [address] [address] 24 Apr, 2018 [facility] [address] [address] Apr, Fibromyalgia M79.7 [facility] [address] [facility] [id number] [address] [place] [address] 14 Mar, 2018 Acute UTI N39.0 and Dysuria R30.0 [address] [place] [address] Mar, Fibromyalgia M79.7 [facility] [address] [address] 15 Feb, 2018 [facility] [address] [address] Feb, [facility] [address] [address] Feb, [facility] [address] [address] Feb, Fibromyalgia M79.7 [facility] [id number] [place] [address] 08 Feb, 2018 Complicated UTI (urinary tract infection ) N39.0 [facility] [address] [address] Feb, [facility] [address] [address] Jan, Generalized anxiety disorder F41.1 and M zion depressive disorder, recurrent episode with anxious distress F33.9 [facility] [address] [facility] [id number] [address] [place] [address] Jan, Acute conjunctivitis of left eye, unspecified acute conjunctivitis type H10.32 [facility] [address] [address] Jan, [facility] [address] [address] Jan, Acute non-recurrent maxillary sinusitis J01.00 ; Dysuria R30.0 ; Perimenopausal vasomotor symptoms N95.1 and Fibromyalgia M79.7 [facility] [address] [address] 28 Dec, 2017 Vitamin D deficiency E55.9 [address] [address] [address] 27 Dec, 2017 Vitamin D deficiency E55.9 [address] [place] [address] 24 Dec, 2017 Vitamin D deficiency E55.9 [facility] [address] [address] Dec, [facility] [address] [address] Dec, Fibromyalgia M79.7 [facility] [address] [address] Nov, [facility] [address] [address] Nov, [address] [place] [address] Nov, [facility] [address] [address] Nov, Fibromyalgia M79.7 ; Vision changes H53. 9 ; Chest wall pain R07.89 and Chronic pain syndrome G89.4 [address] [place] [address] Nov, [address] [address] [address] Nov, Rash of hands R21 [address] [address] Nov, Generalized anxiety disorder F41.1 and M shiraor depressive disorder, recurrent episode with anxious distress F33.9 [address] [address] [address] Nov, Fibromyalgia M79.7 [address] [address] [address] Nov, Complicated UTI (urinary tract infection ) N39.0 [place] [address] [address] Oct, [address] [address] [address] Oct, Generalized anxiety disorder F41.1 and M ajor depressive disorder, recurrent episode with anxious distress F33.9 [address] [address] Oct, [facility] [address] [address] Oct, Fibromyalgia M79.7 [facility] [address] [address] Sep, Restless leg syndrome G25.81 and Restles s leg G25.81 [address] [place] [address] Sep, [address] [address] Sep, Seasonal allergic rhinitis due to pollen J30.1 ; Screening for breast cancer Z12.31 ; Chest pain at rest R07.9 ; Restless leg syndrome G25.81 ; Essential (primary) hypertension I10 and Depressed F32.9 [address] [address] [address] August, Fibromyalgia M79.7 [address] [address] August, [address] [address] August, [address] [address] [address] August, Abnormal chest CT R93.8 [address] [place] [address] August, Generalized anxiety disorder F41.1 and M zion depressive disorder, recurrent episode with anxious distress F33.9 [address] [place] [address] August, Abnormal chest CT R93.8 [address] [address] Jul, [address] [address] [address] Jul, Chronic kidney disease, stage 4 (severe) N18.4 [address] [address] [address] Jul, [address] [address] Jul, Restless leg G25.81 ; Mixed stress and u rge urinary incontinence N39.46 and Fibromyalgia M79.7 [address] [address] [address] Jul, Chronic kidney disease, stage 4 (severe) N18.4 [facility] [address] [address] Jun, Orthostatic hypotension I95.1 ; Chronic kidney disease, stage 4 (severe) N18.4 ; Chest wall discomfort R07.89 and Body mass index (BMI) of 40.0- 44.9 in adult Z68.41 [facility] [address] [address] Jun, [facility] [address] [address] Jun, Orthostatic hypotension I95.1 [address] [address] [address] Jun, [facility] [address] [facility] [id number] [address] [place] [address] Jun, Orthostatic hypotension I95. 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 [address] [address] [address] May, Chronic kidney disease, stage 4 (severe) N18.4 [facility] [address] [address] May, Chronic kidney disease, stage 4 (severe) N18.4 [facility] [address] [address] May, Abnormal chest [address] R93.8 [facility] [address] [address] May, [facility] [address] [address] May, [place] [address] [address] May, Generalized anxiety disorder F41.1 and Tae donovan depressive disorder, recurrent episode with anxious distress F33.9 [address] [address] [address] May, Mood disorder F39 [place] [address] [address] Apr, [place] [address] [address] Apr, Infected skin lesion L08.[address] rain of right shoulder region, initial encounter S46.911A [place] [address] [address] Apr, Generalized anxiety disorder F41.1 and M zion depressive disorder, recurrent episode with anxious distress F33.9 [place] [address] [address] Apr, [place] [address] [address] Apr, Recent urinary tract infection Z87.440 a nd Hypothyroid E03.9 [facility] [address] [address] Apr, Generalized anxiety disorder F41.1 and M zion depressive disorder, recurrent episode with anxious distress F33.9 [place] [address] [address] Apr, Recent urinary tract infection Z87.440 [place] [address] [address] 28 Mar, 2017 [facility] [id number] [place] [address] Mar, Dysuria R30.0 ; Acute cystit is without hematuria N30.00 and BMI 40.0-44.9, adult Z68.41 [place] [address] [address] Mar, [place] [address] [address] Mar, [place] [address] [address] Mar, Generalized anxiety disorder F41.1 and M zion depressive disorder, recurrent episode with anxious distress F33.9 [place] [address] [address] Feb, Conjunctivitis, bacterial H10.9 [place] [address] [address] 27 Feb, 2017 [facility] [id number] [place] [address] Feb, Conjunctivitis, bacterial H1 0.9 [place] [address] [address] 15 Feb, 2017 [facility] [id number] [place] [address] 10 Feb, 2017 Dysuria R30.0 ; Acute cystit is N30.00 and BMI 40.0-44.9, adult Z68.41 [place] [address] [address] 08 Feb, 2017 [place] [address] [address] Feb, Generalized anxiety disorder F41.1 and M zion depressive disorder, recurrent episode with anxious distress F33.9 [place] [address] [address] Feb, Mood disorder F39 and BMI 40.0-44.9, feli lt Z68.41 [place] [address] [address] Jan, [place] [address] [address] Jan, [place] [address] [address] Jan, Hypothyroid E03.9 [place] [address] [address] Jan, [address] [address] Jan, Chronic kidney disease, unspecified N18. 9 ; Hypokalemia E87.6 ; Essential (primary) hypertension I10 ; Fibromyalgia M79.7 ; Coronary artery disease involving [place] coronary artery of [place] heart, angina presence unspecified I25.10 ; Hypothyroid E03.9 and Encounter for immunization Z23 [place] [address] [address] Jan, Hypothyroid E03.9 [place] [address] [address] Jan, [place] [address] [address] Dec, Vitamin D deficiency E55.[address] [address] Dec, Primary osteoarthritis of left knee M17. 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 [place] [address] [address] Dec, Fibromyalgia M79.7 [place] [id number] [place] [address] 18 Sep, 2017 Mood disorder F39 [facility] [address] [address] 2016 [facility] [address] [address] 2016 Generalized anxiety disorder F41.1 and Tae donovan depressive disorder, recurrent episode with anxious distress F33.9 [facility] [address] [address] 11 Sep, 2016 [facility] [address] [address] 08 Sep, 2016 Streptococcal meningitis G00.2 [facility] [address] [address] 07 Dec, 2016 Streptococcal meningitis G00.2 [facility] [address] [address] 07 Sep, 2017 [facility] [address] [address] 06 Sep, 2016 Streptococcal meningitis G00.2 [facility] [id number] [place] [address] 06 Dec, 2017 [facility] [address] [address] 06 Dec, 2016 Major depressive disorder, recurrent epi sode with anxious distress F33.9 [facility] [id number] [place] [address] 29 Nov, 2016 Fever, unspecified fever cause R50.9 [facility] [address] [address] 24 Nov, 2016 [facility] [address] [address] 16 Nov, 2016 Hypothyroid E03.9 [facility] [address] [address] 10 Nov, 2016 Generalized anxiety disorder F41.1 and Tae donovan depressive disorder, recurrent episode with anxious distress F33.9 [facility] [id number] [place] [address] Nov, [facility] [address] [id number] [place] [id number] Oct, Dental examination Z01.20 [facility] [id number] [place] [address] Oct, Generalized anxiety disorder F41.1 and Tae donovan depressive disorder, recurrent episode with anxious distress F33.9 [facility] [id number] [place] [address] Oct, Chronic kidney disease, stage 4 (severe) N18.4 [facility] [address] [address] Oct, [facility] [id number] [place] [address] Oct, Fibromyalgia M79.7 [facility] [address] [address] Oct, [facility] [address] [address] Oct, Generalized anxiety disorder F41.1 ; Fady or depressive disorder, recurrent episode with anxious distress F33.9 and Bipolar disorder, current episode manic without psychotic features F31.10 [facility] [id number] [place] [address] Sep, [facility] [address] [address] Sep, [facility] [address] [address] Sep, Vitamin D deficiency E55.9 [facility] [address] [id number] 14 Sep, 2016 Vitamin D deficiency E55.9 [facility] [id number] [place] [address] Sep, [place] [address] [address] Sep, Chronic kidney disease, stage 4 (severe) N18.4 ; Hypothyroid E03.9 ; Restless leg G25.81 ; Fibromyalgia M79.7 ; Essential (primary) hypertension I10 ; Vitamin D deficiency E55.9 ; Dyspepsia R10.13 ; Anemia in chronic kidney disease D63.1 ; Chronic kidney disease, unspecified N18.9 ; Coronary artery disease involving [place] coronary artery of [place] heart, angina presence unspecified I25.10 ; Screening breast examination Z12.39 and Low back pain M54.5 [place] [address] [address] August, Generalized anxiety disorder F41.1 and M ajor depressive disorder, recurrent episode with anxious distress F33.9 [place] [address] [address] August, Generalized anxiety disorder F41.1 and M ajor depressive disorder, recurrent episode with anxious distress F33.9 [place] [address] [address] August, Fibromyalgia M79.7 [place] [address] [address] Jul, Generalized anxiety disorder F41.1 and M shiraor depressive disorder, recurrent episode with anxious distress F33.9 [place] [address] [address] Jul, Fibromyalgia M79.7 [place] [address] [address] Jul, Generalized anxiety disorder F41.1 [place] [address] [address] May, [place] [address] [address] May, Hypothyroid E03.9 [place] [address] [address] 08 May, 2016 Chronic kidney disease, stage 4 (severe) N18.4 ; Hypothyroid E03.9 ; Restless leg G25.81 ; Fibromyalgia M79.7 ; Essential (primary) hypertension I10 ; Vitamin D deficiency E55.9 ; Dyspepsia R10.13 ; Acute non-recurrent maxillary sinusitis J01.00 ; Anemia in chronic kidney disease D63.1 ; Chronic kidney disease, unspecified N18.9 and Coronary artery disease involving [place] coronary artery of [place] heart, angina presence unspecified I25.10 [place] [address] [address] May, Vitamin D deficiency, unspecified E55.9 [place] [address] [address] May, Generalized anxiety disorder F41.1 and M zion depressive disorder, recurrent episode with anxious distress F33.[address] [address] Apr, Pain in right knee M25.561 and Pain in l eft knee M25.562 [place] [address] [address] Apr, [address] [address] Apr, [place] [address] [address] Apr, [address] [address] Mar, Generalized anxiety disorder F41.1 and M shiraor depressive disorder, recurrent episode with anxious distress F33.[address] [address] Mar, Generalized anxiety disorder F41.1 and M shiraor depressive disorder, recurrent episode with anxious distress F33.9 [place] [address] [address] Mar, [place] [address] [address] Mar, [place] [address] [address] Mar, [place] [address] [address] Mar, Asthma J45.909 and Fibromyalgia M79.7 [place] [address] [address] Mar, Chronic kidney disease, stage 4 (severe) N18.4 ; Vitamin D deficiency E55.9 and Essential (primary) hypertension I10 [place] [address] [address] Feb, [place] [address] [address] Feb, Dysuria R30.0 ; Mixed stress and urge ur inary incontinence N39.46 ; Fibromyalgia M79.7 and Chronic kidney disease, stage IV (severe) N18.4 [place] [address] [address] Feb, Chronic kidney disease, stage 4 (severe) N18.4 [place] [address] [address] Feb, Chronic kidney disease, stage 4 (severe) N18.4 [place] [address] [address] Feb, [place] [address] [address] Feb, Vitamin D deficiency, unspecified E55.9 [place] [address] [address] Jan, [place] [address] [address] Jan, [place] [address] [address] Dec, [facility] [address] [address] Dec, Chronic kidney disease, stage 4 (severe) N18.4 [facility] [address] [address] Dec, Dysthymic disorder F34.1 and Generalized anxiety disorder F41.1 [facility] [address] [address] Dec, [facility] [address] [address] Dec, [place] [address] [address] Dec, Dysthymic disorder F34.1 and Generalized anxiety disorder F41.1 [place] [address] [address] Dec, Dysuria R30.0 ; Chronic kidney disease, stage 4 (severe) N18.4 ; Hypertension I10 ; Dyspepsia R10.13 ; Yeast dermatitis B37.2 ; Palpitations R00.2 ; Hypothyroid E03.9 ; Functional diarrhea K59.1 and Other seasonal allergic rhinitis J30.2 [facility] [address] [place] [address] Dec, [facility] [address] [place] [id number] [place] [address] Nov, Dysuria R30.0 and Stress inc ontinence N39.3 [facility] [address] [address] Nov, [facility] [address] [address] Nov, [facility] [address] [address] Nov, Osteoarthritis of knees, bilateral M17.0 [facility] [address] [address] Nov, Dysthymic disorder F34.1 and Generalized anxiety disorder F41.1 [facility] [address] [address] Nov, [facility] [address] [address] Nov, [facility] [address] [address] Nov, Urgency of urination R39.15 [facility] [address] [address] Nov, [place] [address] [address] Nov, Chronic kidney disease, stage 4 (severe) N18.4 [place] [address] [address] Oct, Hypertension I10 ; Coronary artery disea se involving [place] coronary artery of [place] heart, angina presence unspecified I25.10 ; Palpitations R00.2 ; Hypothyroid E03.9 ; Right foot pain M79.671 ; Functional diarrhea K59.1 and Other seasonal allergic rhinitis J30.2 [place] [address] [address] Oct, Dysthymic disorder F34.1 and Generalized anxiety disorder F41.1 [place] [address] [address] Sep, [facility] [address] [address] Sep, [facility] [address] [address] Sep, [facility] [address] [address] Sep, [facility] [address] [address] Sep, [facility] [address] [address] 27 Sep, 2015 Dysthymic disorder F34.1 and Generalized anxiety disorder F41.1 [place] [address] [address] 16 Sep, 2015 Asthma with acute exacerbation in adult J45.901 ; Dysuria R30.0 ; Chronic kidney disease, stage 4 (severe) N18.4 and History of anemia Z86.2 [place] [address] [address] 2015 Generalized anxiety disorder F41.1 and D ysthymic disorder F34.1 [place] [address] [address] August, Screening breast examination Z12.39 and Acute recurrent maxillary sinusitis J01.01 [place] [address] [address] August, Osteoarthritis of knees, bilateral M17.0 [place] [address] [address] August, Chronic kidney disease, stage 4 (severe) N18.4 ; Acute non-recurrent maxillary sinusitis J01.00 ; Urinary problem R39.89 ; Bowel habit changes R19.4 ; Functional diarrhea K59.1 and History of colon polyps Z86.010 [place] [address] [address] Jul, Dysthymic disorder F34.1 and Generalized anxiety disorder F41.1 [place] [address] [address] Jul, [address] [address] Jul, Dysthymic disorder F34.1 ; Generalized a nxiety disorder F41.1 and [facility] use of drug Z79.899 [place] [address] [address] Jul, [place] [address] [address] 16 Jun, 2015 [facility] [address] [address] Jun, [facility] [address] [address] May, [facility] [address] [address] May, Dysthymic disorder F34.1 and Generalized anxiety disorder F41.1 [place] [address] [address] Apr, Kidney disease N28.9 [place] [address] [address] Apr, Generalized anxiety disorder F41.1 and D ysthymic disorder F34.1 [place] [address] [address] Apr, Chronic kidney disease, stage 4 (severe) N18.4 [place] [address] [address] Apr, Generalized anxiety disorder F41.1 ; Fady or depression, recurrent F33.9 and Sleep disturbance G47.9 [place] [address] [address] Mar, Generalized anxiety disorder F41.1 and D ysthymic disorder F34.1 [place] [address] [address] Mar, Generalized anxiety disorder F41.1 ; 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 and Insomnia G47.00 [place] [address] [address] Mar, [place] [address] [address] Mar, [place] [address] [address] Mar, Osteoarthritis of knees, bilateral M17.0 [facility] [address] [address] Mar, Hypertension I10 ; Hypothyroid E03.9 ; D ysthymic disorder F34.1 ; Chronic kidney disease, stage 4 (severe) N18.4 and Nausea & vomiting R11.2 [place] [address] [address] Mar, Generalized anxiety disorder F41.1 ; 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 and Insomnia G47.00 [place] [address] [address] Mar, Dehydration E86.0 ; Chronic kidney disea se, stage 4 (severe) N18.4 and Nausea & vomiting R11.2 [facility] [address] [facility] [id number] [address] [place] [address] 08 Mar, 2015 Gastroenteritis K52.[address] [address] Mar, [address] [address] Mar, [address] [address] Feb, Dysthymic disorder F34.1 and Generalized anxiety disorder F41.[address] [address] Jan, UTI (urinary tract infection) N39.0 ; As thma J45.909 ; Coronary artery disease involving [place] coronary artery of [place] heart, angina presence unspecified I25.10 ; Hypertension I10 ; Hypothyroid E03.9 ; Vitamin D deficiency E55.9 ; Insomnia G47.00 ; Palpitations R00.2 ; Depressed F32.9 ; Restless leg G25.81 and Anxiety F41.[address] [address] Jan, Dysthymic disorder F34.1 and Generalized anxiety disorder F41.1 [place] [address] [address] Jan, [place] [address] [address] Dec, [place] [address] [address] Dec, Alkalosis 276.3 ; Chronic kidney disease , Stage IV (severe) 585.4 ; Hyperpotassemia 276.7 ; Secondary hyperparathyroidism, renal 588.81 ; Proteinuria 791.0 ; Unspecified vitamin D deficiency 268.9 ; Anemia in chronic kidney disease 285.21 ; Other and unspecified hyperlipidemia 272.4 ; Hypertension, essential, benign 401.1 and Chronic kidney disease (CKD), stage III (moderate) 585.3 [place] [address] [address] Dec, [address] [address] Dec, Depressive disorder, not elsewhere class ified 311 and Generalized anxiety disorder 300.02 [place] [address] [address] Dec, [address] [address] Dec, [place] [address] [address] Nov, Depressive disorder, not elsewhere class ified 311 and Generalized anxiety disorder 300.02 [place] [address] [address] Nov, Arthritis of both knees 716.[address] [address] 07 Nov, 2014 PAF (paroxysmal atrial fibrillation) 427 .31 ; CAD (coronary artery disease) 414.00 ; Chest pain 786.50 and Chronic kidney disease (CKD) stage G4/A1, severely decreased glomerular filtration rate (GFR) between 15-29 mL/min/1.73 square meter and albuminuria creatinine ratio less than 30 mg/g 585.4 [facility] [address] [address] Oct, Coronary atherosclerosis of unspecified type of vessel, [place] or graft 414.00 ; Chronic kidney disease, Stage IV (severe) 585.4 ; Hypertension 401.9 and Edema 782.3 [facility] [address] [address] Oct, Depressive disorder, not elsewhere class ified 311 and Generalized anxiety disorder 300.02 [facility] [address] [address] Oct, Depressive disorder, not elsewhere class ified 311 and Generalized anxiety disorder 300.02 [place] [address] [address] Oct, [place] [address] [address] Oct, [place] [address] [address] Sep, [facility] [address] [address] Sep, Chronic kidney disease, Stage IV (severe ) 585.4 [place] [address] [address] Sep, [place] [address] [address] Sep, Coronary atherosclerosis of unspecified type of vessel, [place] or graft 414.00 ; Hypertension 401.9 ; Edema 782.3 and Hypothyroidism 244.9 [facility] [address] [address] Sep, Coronary atherosclerosis of unspecified type of vessel, [place] or graft 414.00 ; Hypertension 401.9 ; Fibromyalgia 729.1 ; Edema 782.3 ; Hypothyroidism 244.9 and Anemia 285.9 [facility] [address] [address] Sep, Anxiety disorder, unspecified 300.00 and Depressive disorder, not elsewhere classified 311 [facility] [address] [place] [id number] [place] [address] Sep, [facility] [address] [place] [id number] [place] [address] August, Generalized anxiety disorder 300.02 [facility] [address] [place] [id number] [place] [address] August, Closed fracture of lateral malleolus 824 .2 [facility] [address] [place] [id number] [place] [address] Jul, [facility] [address] [place] [id number] [place] [address] Jul, [facility] [address] [place] [id number] [place] [address] Jun, [facility] [place] [address] [place] [id number] [place] [address] Jun, [facility] [address] [place] [id number] [place] [address] Jun, [facility] [address] [place] [id number] [place] [address] Jun, [facility] [address] [place] [id number] [place] [address] Jun, [facility] [address] [place] [id number] [place] [address] Jun, [facility] [address] [place] [id number] [place] [address] May, [facility] [address] [place] [id number] [place] [address] May, [facility] [address] [place] [id number] [place] [address] May, [facility] [address] [place] [id number] [place] [address] May, [facility] [address] [place] [id number] [place] [address] 16 May, 2014 [facility] [address] [facility] [id number] [facility] [facility] [place] [address] 16 May, 2014 [facility] [address] [facility] [id number] [facility] [facility] [place] [address] 13 May, 2014 [facility] [address] [id number] [facility] [place] [address] May, 2014 [facility] [address] [id number] [facility] [place] [address] 10 May, 2014 [facility] [address] [facility] [id number] [facility] [facility] [place] [address] May, [facility] [address] [id number] [facility] [place] [address] Apr, [facility] [address] [id number] [facility] [facility] [place] [address] Apr, [facility] [address] [id number] [place] [address] Mar, [facility] [address] [id number] [facility] [facility] [place] [address] Mar, [facility] [address] [id number] [place] [address] Mar, [facility] [address] [id number] [place] [address] Mar, [facility] [address] [id number] [place] [address] Mar, [facility] [address] [id number] [facility] [facility] [place] [address] Mar, [facility] [address] [id number] [place] [address] Mar, [facility] [address] [id number] [place] [address] Feb, [facility] [address] [id number] [place] [address] Feb, [facility] [address] [facility] [id number] [place] [address] Feb, [facility] [address] [facility] [id number] [place] [address] Jan, [facility] [address] [facility] [id number] [place] [address] Jan, [facility] [address] [facility] [id number] [place] [address] Jan, [facility] [address] [facility] [id number] [place] [address] Jan, [facility] [address] [facility] [id number] [place] [address] Jan, [facility] [address] [facility] [id number] [place] [address] Jan, [facility] [address] [id number] [place] [address] Jan, [facility] [address] [id number] [place] [address] Jan, [facility] [address] [facility] [id number] [place] [address] Jan, [facility] [address] [facility] [id number] [place] [address] Jan, [facility] [address] [id number] [place] [address] Nov, [facility] [address] [facility] [id number] [place] [address] Nov, [facility] [address] [facility] [id number] [place] [address] Nov, [facility] [address] [id number] [place] [address] Oct, [facility] [address] [facility] [id number] [place] [address] Oct, [facility] [address] [id number] [place] [address] Oct, [facility] [address] [facility] [id number] [place] [address] Oct, 2013 [facility] [address] [facility] [id number] [place] [address] Oct, [facility] [address] [facility] [id number] [place] [address] Oct, 2013 [facility] [address] [id number] [place] [address] Oct, [facility] [address] [facility] [id number] [place] [address] Oct, [facility] [address] [id number] [place] [address] Oct, [facility] [address] [id number] [place] [address] Sep, [facility] [address] [id number] [place] [address] Sep, [facility] [address] [id number] [place] [address] Sep, [facility] [address] [id number] [place] [address] Sep, [facility] [address] [id number] [place] [address] Sep, [facility] [address] [id number] [place] [address] Sep, [facility] [address] [id number] [place] [address] Sep, [facility] [address] [id number] [place] [address] Sep, [facility] [address] [id number] [place] [address] Sep, [facility] [address] [id number] [place] [address] August, [facility] [address] [id number] [place] [address] August, [facility] [address] [facility] [id number] [place] [address] August, [facility] [address] [id number] [place] [address] August, [facility] [address] [id number] [place] [address] August, [facility] [address] [id number] [place] [address] August, [facility] [address] [id number] [place] [address] Jul, [facility] [address] [id number] [place] [address] Jul, [facility] [address] [id number] [place] [address] Jul, [facility] [address] [id number] [place] [address] Jul, [facility] [address] [id number] [place] [address] Jul, [facility] [address] [id number] [place] [address] Jul, [facility] [address] [id number] [place] [address] Jun, [facility] [address] [id number] [place] [address] Jun, [facility] [address] [id number] [place] [address] May, [facility] [address] [id number] [place] [address] May, [facility] [address] [id number] [place] [address] May, [facility] [address] [id number] [place] [address] May, [facility] [address] [id number] [place] [address] Apr, [facility] [address] [id number] [place] [address] Apr, [facility] [address] [id number] [place] [address] 18 Mar, 2013 [facility] [address] [id number] [place] [address] 18 Mar, 2013 [facility] [address] [id number] [place] [address] Mar, [facility] [address] [id number] [place] [address] Mar, [facility] [address] [id number] [place] [address] Mar, [facility] [id number] [place] [address] Mar, [facility] [address] [id number] [place] [address] Feb, [facility] [address] [id number] [place] [address] Feb, [facility] [id number] [place] [address] 14 Feb, 2013 [facility] [address] [id number] [place] [address] Feb, [facility] [address] [id number] [place] [address] 05 Feb, 2013 [facility] [address] [id number] [place] [address] 05 Feb, 2013 [facility] [id number] [place] [address] 24 Jan, 2013 [facility] [address] [id number] [place] [address] 24 Jan, 2013 [facility] [address] [id number] [place] [address] Jan, [facility] [address] [facility] [facility] [id number] [facility] [place] [address] Jan, [facility] [address] [facility] [id number] [facility] [place] [address] Jan, [facility] [address] [id number] [place] [address] Jan, [facility] [address] [id number] [facility] [place] [address] Dec, [facility] [address] [facility] [id number] [facility] [place] [address] Dec, [facility] [address] [id number] [facility] [place] [address] Nov, [facility] [address] [id number] [place] [address] Nov, [facility] [address] [id number] [place] [address] Oct, [facility] [address] [id number] [facility] [place] [address] Oct, [facility] [address] [id number] [place] [address] Oct, [facility] [address] [id number] [place] [address] Oct, [facility] [address] [id number] [place] [address] Oct, [facility] [address] [id number] [facility] [place] [address] Oct, [facility] [address] [id number] [place] [address] Sep, [facility] [address] [id number] [place] [address] Sep, [facility] [address] [id number] [place] [address] Sep, [facility] [address] [id number] [place] [address] Sep, [facility] [address] [id number] [place] [address] August, [facility] [address] [id number] [place] [address] August, [facility] [address] [id number] [place] [address] August, [facility] [address] [id number] [place] [address] August, [facility] [address] [id number] [place] [address] August, [facility] [address] [id number] [place] [address] Jul, [facility] [address] [id number] [place] [address] Jul, [facility] [address] [id number] [place] [address] Jul, [facility] [address] [id number] [place] [address] Jul, [facility] [address] [id number] [place] [address] Jul, [facility] [address] [id number] [place] [address] Jul, [facility] [address] [id number] [place] [address] Jul, [facility] [address] [id number] [place] [address] Jul, [facility] [address] [id number] [place] [address] Jul, [facility] [address] [id number] [place] [address] Jul, [facility] [id number] [place] [id number] Jun, [facility] [address] [id number] [place] [address] Jun, [facility] [address] [id number] [place] [address] Jun, [facility] [address] [id number] [place] [address] Jun, [facility] [address] [id number] [place] [address] Jun, [facility] [address] [id number] [place] [address] May, [facility] [address] [id number] [place] [address] May, [facility] [address] [id number] [place] [address] May, [facility] [address] [id number] [place] [address] Apr, [facility] [address] [id number] [place] [address] Apr, [facility] [address] [id number] [place] [address] Apr, [facility] [address] [id number] [place] [address] Apr, [facility] [address] [id number] [place] [address] Apr, [facility] [address] [id number] [place] [address] Apr, [facility] [address] [id number] [place] [address] Mar, [facility] [address] [id number] [place] [address] Mar, [facility] [address] [id number] [place] [address] Mar, [facility] [address] [id number] [place] [address] Mar, [facility] [address] [id number] [place] [address] Feb, [facility] [address] [id number] [place] [address] Feb, [facility] [address] [id number] [place] [address] Feb, [facility] [address] [id number] [place] [address] Feb, [facility] [address] [id number] [place] [address] Feb, [facility] [address] [id number] [place] [address] Feb, [facility] [address] [id number] [place] [address] Feb, [facility] [id number] [place] [address] Feb, [facility] [address] [id number] [place] [address] Feb, [facility] [address] [id number] [place] [address] Feb, [facility] [address] [id number] [place] [address] Feb, [facility] [address] [id number] [place] [address] Feb, [facility] [address] [id number] [place] [address] Feb, [facility] [address] [id number] [place] [address] Feb, [facility] [address] [id number] [place] [address] Feb, [facility] [address] [id number] [place] [address] Feb, [facility] [address] [id number] [place] [address] 31 Jan, 2011 [facility] [address] [facility] [id number] [place] [address] 31 Jan, 2012 [facility] [address] [id number] [place] [address] 31 Jan, 2012 [facility] [address] [id number] [place] [address] 31 Jan, 2012 [facility] [address] [id number] [place] [address] 30 Jan, 2012 [facility] [address] [id number] [place] [address] Jan, [facility] [address] [id number] [place] [address] Jan, [facility] [address] [id number] [place] [address] 16 Jan, 2012 [facility] [address] [id number] [place] [address] 16 Jan, 2012 [facility] [address] [id number] [place] [address] 15 Jan, 2012 [facility] [address] [id number] [place] [address] 15 Jan, 2012 [facility] [address] [id number] [place] [address] Jan, [facility] [address] [id number] [place] [address] 26 Sep, 2011 [facility] [address] [id number] [place] [address] 26 Sep, 2011 [facility] [address] [id number] [place] [address] 24 Sep, 2011 [facility] [address] [id number] [place] [address] 23 Sep, 2011 [facility] [address] [id number] [place] [address] 22 Sep, 2011 [facility] [address] [id number] [place] [address] 21 Dec, 2011 [facility] [address] [id number] [place] [address] 20 Dec, 2011 [facility] [address] [id number] [place] [address] 20 Dec, 2011 [facility] [address] [id number] [place] [address] 07 Dec, 2011 [facility] [address] [id number] [place] [address] 06 Dec, 2011 [facility] [address] [id number] [place] [address] 06 Dec, 2011 [facility] [address] [id number] [place] [address] 05 Dec, 2011 [facility] [address] [id number] [place] [address] 23 Nov, 2011 [facility] [address] [id number] [place] [address] Nov, 2011 [facility] [address] [id number] [place] [address] 13 Nov, 2011 [facility] [address] [id number] [place] [address] Nov, [facility] [address] [id number] [place] [address] Nov, [facility] [address] [id number] [place] [address] Nov, [facility] [address] [id number] [place] [address] Nov, [facility] [address] [id number] [place] [address] Nov, [facility] [address] [id number] [place] [address] Oct, [facility] [address] [id number] [place] [address] Oct, [facility] [address] [id number] [place] [address] Oct, [facility] [address] [id number] [place] [address] Oct, [facility] [address] [id number] [place] [address] Oct, [facility] [address] [id number] [place] [address] Oct, [facility] [address] [facility] [id number] [place] [address] Oct, [facility] [address] [id number] [place] [address] Sep, [facility] [address] [id number] [place] [address] Sep, [facility] [address] [id number] [place] [address] August, [facility] [address] [id number] [place] [address] August, [facility] [address] [id number] [place] [address] August, [facility] [address] [id number] [place] [address] August, [facility] [address] [id number] [place] [address] Jul, [facility] [address] [id number] [place] [address] Jul, [facility] [address] [id number] [place] [address] Jul, [facility] [address] [id number] [place] [address] Jul, [facility] [address] [id number] [place] [address] Jul, [facility] [address] [id number] [facility] [place] [address] 04 Jul, 2011 [facility] [address] [facility] [id number] [facility] [place] [address] Jul, [facility] [address] [id number] [place] [address] Jul, [facility] [address] [id number] [place] [address] Jul, [facility] [address] [id number] [place] [address] 23 Jun, 2011 [facility] [address] [id number] [place] [address] Jun, [facility] [address] [id number] [place] [address] 15 Jun, 2011 [facility] [address] [id number] [place] [address] 14 Jun, 2011 [facility] [address] [id number] [place] [address] Jun, [facility] [address] [id number] [place] [address] Jun, [facility] [address] [id number] [place] [address] Jun, [facility] [address] [id number] [place] [address] May, [facility] [address] [id number] [place] [address] 24 May, 2011 [facility] [address] [id number] [place] [address] May, [facility] [address] [id number] [place] [address] May, [facility] [address] [id number] [place] [address] May, [facility] [address] [id number] [place] [address] Apr, [facility] [address] [id number] [place] [address] Apr, [facility] [address] [id number] [place] [address] Apr, [facility] [address] [id number] [place] [address] Apr, [facility] [address] [id number] [place] [address] Apr, [facility] [address] [id number] [place] [address] Mar, [facility] [address] [id number] [place] [address] Mar, [facility] [address] [id number] [place] [address] Mar[facility] [id number] [place] [address] Mar, [facility] [address] [id number] [place] [address] Mar, [facility] [address] [id number] [place] [address] Mar, [facility] [address] [id number] [place] [address] Mar, [facility] [address] [id number] [place] [address] Feb, [facility] [address] [id number] [place] [address] Feb, [facility] [address] [id number] [place] [address] Feb, [facility] [address] [id number] [place] [address] Feb, [facility] [address] [id number] [place] [address] Jan, [facility] [address] [id number] [place] [address] Jan, [facility] [id number] [place] [address] Jan, [facility] [id number] [place] [address] Jan, [facility] [id number] [place] [address] Nov, [facility] [id number] [place] [address] Mar, [facility] [id number] [place] [address] Mar, [facility] [id number] [place] [address] Mar, [facility] [id number] [place] [address] Mar, [facility] [id number] [place] [address] Mar, [facility] [id number] [place] [address] Mar, [facility] [id number] [place] [address] Feb, [facility] [id number] [place] [address] Feb, [facility] [id number] [place] [address] Jan, [facility] [id number] [place] [address] Jan, [facility] [id number] [place] [address] Jan, IMMUNIZATIONS No Known Immunizations SOCIAL HISTORY [...] History CPAP Noncompliance_ Dr. Madden advises a Vint driving. Medical History Bacterial meningitis 12/2016 Medical [...] 09-2015 & 2007 Surgical History Bladder surgery [facility] 03/2016 Surgical History Neurotransmitter placed 10/2017 Surgical History retninal repair 12/31/2017 Surgical History cataract surgery 2018 Surgical History cataract surgery 2019 Surgical History SCS trial x7 days 2018 Surgical History SCS implant removed. 2019 Surgical History right shoulder surgery to repair torn te ndons 02/2019 Hospitalization History Surgeries Only Hospitalization History bacterial meningitis December 2016 Hospitalization History [facility] psych for SI 1988 Hospitalization History [facility]-Altered mental status 05/2017 Hospitalization History sepsis, UTI, headache 08/03/2018-
--- OUTSIDE RECORDS SUMMARY | 2019-08-01 09:59 | XMS REPORT ---
Author Author Lola Medellin Organization [facility] Address [address] [place] [address] Care Team Providers Care Orthodontist Assistant Name Role Phone PENNIE Medellin Unavailable PROBLEMS Type Condition ICD9-CM Code [id number] Code Onset Dates Condition S tatus SNOMED Code Problem Generalized anxiety disorder F41.1 A ctive 34927323 Problem Low back pain M54.5 Active 776673 009 Problem Insomnia G47.00 Active 649286545 Problem Hypothyroid E03.9 Active 46287165 Problem Palpitations R00.2 Active 1099565 2 Problem Asthma J45.909 Active 220187835 Problem Mixed stress and urge urinary incontinence N39.46 Active 181204734 Problem Fibromyalgia M79.7 Active 5700867 05 Problem Stage 3 chronic kidney disease N18.3 Active 297542875 Problem Body mass index (BMI) of 40.0-44.9 in adult Z68.41 Active 403263248 Problem Seasonal allergic rhinitis due to pollen J30.1 Active 16182211 Problem Atherosclerosis of y[place]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 ronary artery of yurok heart with angina pectoris I25.119 Active 5593090331536 Problem Primary osteoarthritis of left knee M17.12 Active 298354686 Problem Hypercholesterolemia E78.00 Active 68602377 Problem Essential (primary) hypertension I10 Active 96145953 Problem Restless leg syndrome G25.81 Active 46438241 Problem Chronic pain syndrome G89.4 Active 346372827 Problem Perimenopausal vasomotor symptoms N95.1 Active 402794269 Problem Major depressive disorder, recurrent, moderate F33 .1 Active 735227870 ALLERGIES No Information ENCOUNTERS Encounter Location Date Diagnosis [place] [id number] [id number] [place] [address] 27 Jun, 2019 [facility] [address] [id number] [place] [address] 16 Jun, 2019 [place] [address] [address] May, Cystitis N30.90 [place] [address] [address] May, [facility] [address] [address] May, [facility] [address] [place] [id number] [address] May, Chronic pain syndrome G89.4 [place] [address] [address] May, Generalized anxiety disorder F41.1 and M ajor depressive disorder, recurrent episode with anxious distress F33.9 [place] [address] [address] Apr, Major depressive disorder, recurrent, mo derate F33.1 ; Generalized anxiety disorder F41.1 and Dysthymic disorder F34.1 [place] [address] [address] Apr, Chronic pain syndrome G89.4 [place] [address] [address] Apr, Acute pain of right knee M25.561 [place] [address] [address] Apr, [place] [address] [address] Mar, Major depressive disorder, recurrent, mo derate F33.1 ; Generalized anxiety disorder F41.1 and Dysthymic disorder F34.1 [facility] [address] [facility] [id number] [place], [place] [address] Mar, Fluid collection of middle e ar H65.90 and Dizziness R42 [place] [address] [address] Mar, [place] [address] [address] Mar, [place] [address] [address] Mar, Essential (primary) hypertension I10 ; S tage 3 chronic kidney disease N18.3 ; Hypercholesterolemia E78.00 ; Asthma J45.909 ; Recurrent UTI N39.0 ; Status post shoulder surgery Z98.890 and Encounter for immunization Z23 [place] [address] [address] Mar, Chronic pain syndrome G89.4 [place] [address] [address] Feb, [place] [address] [address] Feb, [place] [address] [address] Feb, Oral thrush B37.0 and Sore throat J02.9 [place] [address] [address] Feb, Chronic pain syndrome G89.4 [place] [address] [address] Jan, [place] [address] [address] Jan, Chronic pain syndrome G89.4 [place] [address] [address] Jan, Hypercholesterolemia E78.00 [place] [address] [address] Jan, [place] [address] [address] Dec, Chronic kidney disease, stage 4 (severe) N18.4 [facility] [address] [address] Dec, Major depressive disorder, recurrent, mo derate F33.1 ; Generalized anxiety disorder F41.1 and Dysthymic disorder F34.1 [place] [address] [address] Dec, Generalized anxiety disorder F41.1 and Tae donovan depressive disorder, recurrent episode with anxious distress F33.9 [place] [address] [address] Dec, [place] [address] [address] Dec, [place] [address] [address] Dec, Encounter for immunization Z23 [address] [address] Dec, Diarrhea, unspecified type R19.7 and Hem orrhoids, unspecified hemorrhoid type K64.9 [place] [address] [address] Dec, Encounter for Medicare annual wellness e xam Z00.00 ; Chronic kidney disease, stage 4 (severe) N18.4 ; Encounter for immunization Z23 ; Major depressive disorder, recurrent, moderate F33.1 ; Atherosclerosis of yurok coronary artery of yurok heart with angina pectoris I25.119 ; Asthma J45.909 ; Hypothyroid E03.9 and Fibromyalgia M79.7 [place] [address] [address] Dec, Chronic pain syndrome G89.4 [place] [address] [address] Nov, Major depressive disorder, recurrent, mo derate F33.1 ; Generalized anxiety disorder F41.1 and Dysthymic disorder F34.1 [place] [address] [address] Nov, [place] [address] [address] Nov, Chronic pain syndrome G89.4 [place] [address] [address] Nov, Restless leg syndrome G25.81 [place] [address] [address] Nov, Pain in right shoulder M25.511 ; Restles s leg syndrome G25.81 ; Other chronic pain G89.29 ; Screening for breast cancer Z12.39 ; Insomnia G47.00 and Morbid obesity E66.01 [place] [address] [address] Nov, [place] [address] [address] Oct, Major depressive disorder, recurrent, mo derate F33.1 ; Generalized anxiety disorder F41.1 and Dysthymic disorder F34.1 [place] [address] [address] Oct, [place] [address] [address] Oct, Cellulitis of left lower extremity L03.1 16 and Morbid obesity E66.01 [facility] [address] [place] [address] Oct, [place] [address] [address] Oct, [place] [address] [address] Oct, Generalized anxiety disorder F41.1 and M ajor depressive disorder, recurrent episode with anxious distress F33.9 [facility] [address] [place] [id number] [place] [address] Oct, [place] [address] [address] Oct, Chronic pain syndrome G89.4 [place] [address] [address] Oct, Chronic pain syndrome G89.4 [facility] [address] [facility] [id number] [address] [place] [address] Oct, UTI symptoms R39.9 ; Acute c ystitis without hematuria N30.00 and Morbid obesity E66.01 [facility] [address] [place] [id number] [place] [address] Oct, [facility] [address] [address] Oct, Chronic pain syndrome G89.4 [facility] [address] [address] Sep, [facility] [address] [address] Sep, Generalized anxiety disorder F41.1 and Tae donovan depressive disorder, recurrent episode with anxious distress F33.9 [facility] [address] [address] Sep, Chronic kidney disease, stage 4 (severe) N18.4 [facility] [address] [address] Sep, Fibromyalgia M79.7 and Chronic pain synd lisseth G89.4 [facility] [address] [place] [id number] [place] [address] Sep, [address] [place] [address] Sep, Chronic pain syndrome G89.4 [facility] [address] [place] [id number] [place] [address] Sep, [facility] [address] [address] Sep, Chronic pain syndrome G89.4 ; Fibromyalg ia M79.7 and Morbid obesity E66.01 [facility] [address] [place] [id number] [place] [address] August, Generalized anxiety disorder F41.1 and Tae donovan depressive disorder, recurrent episode with anxious distress F33.9 [place] [address] [address] August, Fibromyalgia M79.7 [place] [address] [address] August, Restless leg syndrome G25.81 ; Vitamin D deficiency E55.9 ; Urinary tract infection without hematuria, site unspecified N39.0 ; Pain in right shoulder M25.511 ; Other chronic pain G89.29 ; Biceps tendinitis on right M75.21 and Morbid obesity E66.01 [place] [address] [address] Jul, Urinary tract infection without hematuri a, site unspecified N39.0 and Morbid obesity E66.01 [place] [address] [address] Jul, [place] [address] [address] Jul, [place] [address] [address] Jul, Fibromyalgia M79.7 [place] [address] [address] 08 Jul, 2018 Acute pain of right shoulder M25.511 [place] [address] [address] Jul, Acute pain of right shoulder M25.511 and Morbid obesity E66.01 [place] [address] [address] Jun, [place] [address] [address] 14 Jun, 2018 Generalized anxiety disorder F41.1 and Tae donovan depressive disorder, recurrent episode with anxious distress F33.9 [place] [address] [address] Jun, [place] [address] [address] Jun, Fibromyalgia M79.7 [facility] [address] [facility] [id number] [address] [place] [address] 04 Jun, 2018 Acute pain of right shoulder M25.511 ; Acute pain of right hip M25.551 and Morbid obesity E66.01 [facility] [address] [address] 11 May, 2018 Burning with urination R30.0 ; Vaginal d ischarge N89.8 ; Chronic kidney disease, stage 4 (severe) N18.4 ; Body mass index (BMI) of 40.0-44.9 in adult Z68.41 and Morbid obesity E66.01 [place] [address] [address] 07 May, 2018 Fibromyalgia M79.7 [place] [address] [address] 06 May, 2018 Generalized anxiety disorder F41.1 and M ajor depressive disorder, recurrent episode with anxious distress F33.9 [place] [address] [address] Apr, [place] [address] [address] Apr, Fibromyalgia M79.7 [facility] [address] [place] [id number] [place] [address] 14 Mar, 2018 Acute UTI N39.0 and Dysuria R30.0 [place] [address] [address] 10 Mar, 2018 Fibromyalgia M79.7 [place] [address] [address] 15 Feb, 2018 [place] [address] [address] 14 Feb, 2018 [place] [address] [address] Feb, [facility] [address] [place] [address] [place] [address] Feb, Fibromyalgia M79.7 [facility] [address] [address] Feb, Complicated UTI (urinary tract infection ) N39.0 [facility] [address] [address] Feb, [facility] [address] [address] Jan, Generalized anxiety disorder F41.1 and M ajor depressive disorder, recurrent episode with anxious distress F33.9 [facility] [address] [facility] [id number] [address] [place] [address] Jan, Acute conjunctivitis of left eye, unspecified acute conjunctivitis type H10.32 [facility] [address] [address] Jan, [facility] [address] [address] Jan, Acute non-recurrent maxillary sinusitis J01.00 ; Dysuria R30.0 ; Perimenopausal vasomotor symptoms N95.1 and Fibromyalgia M79.7 [place] [address] [address] Dec, Vitamin D deficiency E55.9 [place] [address] [address] Dec, Vitamin D deficiency E55.9 [facility] [address] [address] 24 Dec, 2017 Vitamin D deficiency E55.9 [place] [address] [address] Dec, [facility] [address] [address] Dec, Fibromyalgia M79.7 [facility] [address] [address] Nov, [facility] [address] [address] Nov, [facility] [address] [address] Nov, [facility] [address] [address] Nov, Fibromyalgia M79.7 ; Vision changes H53. 9 ; Chest wall pain R07.89 and Chronic pain syndrome G89.4 [place] [address] [address] Nov, [place] [address] [address] Nov, Rash of hands R21 [place] [address] [address] Nov, Generalized anxiety disorder F41.1 and Tae donovan depressive disorder, recurrent episode with anxious distress F33.9 [place] [address] [address] Nov, Fibromyalgia M79.7 [place] [address] [address] Nov, Complicated UTI (urinary tract infection ) N39.0 [place] [address] [address] Oct, [place] [address] [address] Oct, Generalized anxiety disorder F41.1 and Tae donovan depressive disorder, recurrent episode with anxious distress F33.9 [place] [address] [address] Oct, [place] [address] [address] Oct, Fibromyalgia M79.7 [facility] [address] [address] Sep, Restless leg syndrome G25.81 and Restles s leg G25.81 [place] [address] [address] Sep, [place] [address] [address] Sep, Seasonal allergic rhinitis due to pollen J30.1 ; Screening for breast cancer Z12.31 ; Chest pain at rest R07.9 ; Restless leg syndrome G25.81 ; Essential (primary) hypertension I10 and Depressed F32.9 [place] [address] [address] August, Fibromyalgia M79.7 [place] [address] [address] August, [place] [address] [address] August, [place] [address] [address] August, Abnormal chest CT R93.8 [place] [address] [address] August, Generalized anxiety disorder F41.1 and M zion depressive disorder, recurrent episode with anxious distress F33.9 [place] [address] [address] August, Abnormal chest CT R93.8 [place] [address] [address] Jul, [place] [address] [address] Jul, Chronic kidney disease, stage 4 (severe) N18.4 [place] [address] [address] Jul, [place] [address] [address] Jul, Restless leg G25.81 ; Mixed stress and u rge urinary incontinence N39.46 and Fibromyalgia M79.7 [facility] [address] [place] [id number] [place] [address] Jul, Chronic kidney disease, stage 4 (severe) N18.4 [facility] [address] [address] Jun, Orthostatic hypotension I95.1 ; Chronic kidney disease, stage 4 (severe) N18.4 ; Chest wall discomfort R07.89 and Body mass index (BMI) of 40.0- 44.9 in adult Z68.41 [facility] [address] [place] [id number] [place] [address] Jun, [place] [address] [address] Jun, Orthostatic hypotension I95.1 [place] [address] [address] Jun, [facility] [address] [facility] [id number] [address] [place] [address] Jun, Orthostatic hypotension I95. 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 [place] [address] [address] May, Chronic kidney disease, stage 4 (severe) N18.4 [facility] [address] [address] May, Chronic kidney disease, stage 4 (severe) N18.4 [facility] [address] [address] May, Abnormal chest [address] R93.8 [facility] [address] [address] May, [place] [address] [address] May, [place] [address] [address] May, Generalized anxiety disorder F41.1 and Tae donovan depressive disorder, recurrent episode with anxious distress F33.9 [place] [address] [address] May, Mood disorder F39 [place] [address] [address] Apr, [place] [address] [address] Apr, Infected skin lesion L08.[address] rain of right shoulder region, initial encounter S46.911A [place] [address] [address] Apr, Generalized anxiety disorder F41.1 and Tae donovan depressive disorder, recurrent episode with anxious distress F33.9 [place] [address] [address] Apr, [place] [address] [address] Apr, Recent urinary tract infection Z87.440 a nd Hypothyroid E03.9 [place] [address] [address] Apr, Generalized anxiety disorder F41.1 and M ajor depressive disorder, recurrent episode with anxious distress F33.[address] [address] Apr, Recent urinary tract infection Z87.440 [place] [address] [address] Mar, [facility] [address] [place] [id number] [address] [place] [address] Mar, Dysuria R30.0 ; Acute cystit is without hematuria N30.00 and BMI 40.0-44.9, adult Z68.[address] [address] Mar, [place] [address] [address] Mar, [address] [address] Mar, Generalized anxiety disorder F41.1 and M shiraor depressive disorder, recurrent episode with anxious distress F33.[address] [address] Feb, Conjunctivitis, bacterial H10.[address] [address] Feb, [facility] [address] [place] [id number] [place] [address] Feb, Conjunctivitis, bacterial H1 0.[address] [address] Feb, [facility] [address] [id number] [address] [place] [address] Feb, Dysuria R30.0 ; Acute cystit is N30.00 and BMI 40.0-44.9, adult Z68.[address] [address] Feb, [place] [address] [address] Feb, Generalized anxiety disorder F41.1 and M zion depressive disorder, recurrent episode with anxious distress F33.9 [place] [address] [address] Feb, Mood disorder F39 and BMI 40.0-44.9, feli lt Z68.41 [place] [address] [address] Jan, [place] [address] [address] Jan, [place] [address] [address] Jan, Hypothyroid E03.9 [place] [address] [address] Jan, [place] [address] [address] Jan, Chronic kidney disease, unspecified N18. 9 ; Hypokalemia E87.6 ; Essential (primary) hypertension I10 ; Fibromyalgia M79.7 ; Coronary artery disease involving yurok coronary artery of yurok heart, angina presence unspecified I25.10 ; Hypothyroid E03.9 and Encounter for immunization Z23 [place] [address] [address] Jan, Hypothyroid E03.9 [place] [address] [address] Jan, [place] [address] [address] Dec, Vitamin D deficiency E55.9 [place] [address] [address] Dec, Primary osteoarthritis of left knee M17. 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 [place] [address] [address] 19 Dec, 2016 Fibromyalgia M79.7 [facility] [address] [address] 18 Sep, 2016 Mood disorder F39 [facility] [address] [address] 13 Dec, 2016 [facility] [address] [address] 13 Dec, 2016 Generalized anxiety disorder F41.1 and M ajor depressive disorder, recurrent episode with anxious distress F33.9 [facility] [address] [address] 11 Dec, 2016 [facility] [address] [address] 08 Dec, 2016 Streptococcal meningitis G00.2 [facility] [address] [address] 07 Dec, 2016 Streptococcal meningitis G00.2 [facility] [address] [address] 07 Dec, 2016 [facility] [address] [address] 06 Dec, 2016 Streptococcal meningitis G00.2 [facility] [address] [address] 06 Dec, 2016 [facility] [address] [address] 06 Dec, 2016 Major depressive disorder, recurrent epi sode with anxious distress F33.9 [facility] [address] [address] Nov, Fever, unspecified fever cause R50.9 [facility] [address] [address] 24 Nov, 2016 [facility] [address] [address] 16 Nov, 2016 Hypothyroid E03.9 [facility] [id number] [place] [address] Nov, Generalized anxiety disorder F41.1 and Tae donovan depressive disorder, recurrent episode with anxious distress F33.9 [facility] [id number] [place] [address] Nov, [facility] [address] [id number] [place] [id number] Oct, Dental examination Z01.20 [facility] [address] [address] Oct, Generalized anxiety disorder F41.1 and M zion depressive disorder, recurrent episode with anxious distress F33.9 [place] [address] [address] Oct, Chronic kidney disease, stage 4 (severe) N18.4 [place] [address] [address] Oct, [facility] [address] [address] Oct, Fibromyalgia M79.7 [place] [address] [address] Oct, [place] [address] [address] Oct, Generalized anxiety disorder F41.1 ; Fady or depressive disorder, recurrent episode with anxious distress F33.9 and Bipolar disorder, current episode manic without psychotic features F31.10 [place] [id number] [place] [address] Sep, [place] [address] [address] Sep, [place] [address] [address] Sep, Vitamin D deficiency E55.9 [place] [address] [address] Sep, Vitamin D deficiency E55.9 [facility] [address] [address] Sep, [facility] [address] [address] Sep, Chronic kidney disease, stage 4 (severe) N18.4 ; Hypothyroid E03.9 ; Restless leg G25.81 ; Fibromyalgia M79.7 ; Essential (primary) hypertension I10 ; Vitamin D deficiency E55.9 ; Dyspepsia R10.13 ; Anemia in chronic kidney disease D63.1 ; Chronic kidney disease, unspecified N18.9 ; Coronary artery disease involving yurok coronary artery of yurok heart, angina presence unspecified I25.10 ; Screening breast examination Z12.39 and Low back pain M54.5 [facility] [facility] [address] [address] August, Generalized anxiety disorder F41.1 and M shiraor depressive disorder, recurrent episode with anxious distress F33.9 [facility] [facility] [address] [address] August, Generalized anxiety disorder F41.1 and M ajor depressive disorder, recurrent episode with anxious distress F33.9 [facility] [address] [address] August, Fibromyalgia M79.7 [facility] [address] [address] Jul, Generalized anxiety disorder F41.1 and M ajor depressive disorder, recurrent episode with anxious distress F33.9 [place] [address] [address] Jul, Fibromyalgia M79.7 [place] [address] [address] Jul, Generalized anxiety disorder F41.1 [place] [address] [address] May, [place] [address] [address] 16 May, 2016 Hypothyroid E03.9 [place] [address] [address] 08 May, 2016 Chronic kidney disease, stage 4 (severe) N18.4 ; Hypothyroid E03.9 ; Restless leg G25.81 ; Fibromyalgia M79.7 ; Essential (primary) hypertension I10 ; Vitamin D deficiency E55.9 ; Dyspepsia R10.13 ; Acute non-recurrent maxillary sinusitis J01.00 ; Anemia in chronic kidney disease D63.1 ; Chronic kidney disease, unspecified N18.9 and Coronary artery disease involving yurok coronary artery of yurok heart, angina presence unspecified I25.10 [place] [address] [address] May, Vitamin D deficiency, unspecified E55.9 [place] [address] [address] May, Generalized anxiety disorder F41.1 and Tae donovan depressive disorder, recurrent episode with anxious distress F33.9 [place] [address] [address] Apr, Pain in right knee M25.561 and Pain in l eft knee M25.562 [place] [address] [address] Apr, [place] [address] [address] Apr, [place] [address] [address] Apr, [place] [address] [address] Mar, Generalized anxiety disorder F41.1 and Tae donovan depressive disorder, recurrent episode with anxious distress F33.9 [place] [address] [address] Mar, Generalized anxiety disorder F41.1 and Tae donovan depressive disorder, recurrent episode with anxious distress F33.9 [place] [address] [address] Mar, [place] [address] [address] Mar, [place] [address] [address] Mar, [place] [address] [address] Mar, Asthma J45.909 and Fibromyalgia M79.7 [place] [address] [address] Mar, Chronic kidney disease, stage 4 (severe) N18.4 ; Vitamin D deficiency E55.9 and Essential (primary) hypertension I10 [place] [address] [address] Feb, [place] [address] [address] Feb, Dysuria R30.0 ; Mixed stress and urge ur inary incontinence N39.46 ; Fibromyalgia M79.7 and Chronic kidney disease, stage IV (severe) N18.4 [place] [address] [address] Feb, Chronic kidney disease, stage 4 (severe) N18.4 [place] [address] [address] Feb, Chronic kidney disease, stage 4 (severe) N18.4 [place] [address] [address] Feb, [address] [address] Feb, Vitamin D deficiency, unspecified E55.9 [place] [address] [address] Jan, [place] [address] [address] Jan, [facility] [address] [address] Dec, [facility] [address] [address] Dec, Chronic kidney disease, stage 4 (severe) N18.4 [facility] [address] [address] Dec, Dysthymic disorder F34.1 and Generalized anxiety disorder F41.1 [place] [address] [address] Dec, [place] [address] [address] Dec, [place] [address] [address] Dec, Dysthymic disorder F34.1 and Generalized anxiety disorder F41.1 [place] [address] [address] Dec, Dysuria R30.0 ; Chronic kidney disease, stage 4 (severe) N18.4 ; Hypertension I10 ; Dyspepsia R10.13 ; Yeast dermatitis B37.2 ; Palpitations R00.2 ; Hypothyroid E03.9 ; Functional diarrhea K59.1 and Other seasonal allergic rhinitis J30.2 [facility] [address] [place] [id number] [address] [place] [address] Dec, [facility] [place] [id number] [address] [place] [address] Nov, Dysuria R30.0 and Stress inc ontinence N39.3 [place] [address] [address] Nov, [place] [address] [address] Nov, [place] [address] [address] Nov, Osteoarthritis of knees, bilateral M17.0 [facility] [address] [address] Nov, Dysthymic disorder F34.1 and Generalized anxiety disorder F41.1 [facility] [address] [address] 16 Nov, 2015 [facility] [address] [address] Nov, [facility] [address] [address] Nov, Urgency of urination R39.15 [place] [address] [address] Nov, [place] [address] [address] Nov, Chronic kidney disease, stage 4 (severe) N18.4 [place] [address] [address] Oct, Hypertension I10 ; Coronary artery disea se involving yurok coronary artery of yurok heart, angina presence unspecified I25.10 ; Palpitations R00.2 ; Hypothyroid E03.9 ; Right foot pain M79.671 ; Functional diarrhea K59.1 and Other seasonal allergic rhinitis J30.2 [place] [address] [address] Oct, Dysthymic disorder F34.1 and Generalized anxiety disorder F41.1 [facility] [address] [address] Sep, [facility] [address] [address] Sep, [facility] [address] [address] Sep, [facility] [address] [address] Sep, [facility] [address] [address] 29 Sep, 2015 [place] [address] [address] 27 Sep, 2015 Dysthymic disorder F34.1 and Generalized anxiety disorder F41.[address] [address] 16 Sep, 2015 Asthma with acute exacerbation in adult J45.901 ; Dysuria R30.0 ; Chronic kidney disease, stage 4 (severe) N18.4 and History of anemia Z86.[address] [address] 2015 Generalized anxiety disorder F41.1 and D ysthymic disorder F34.[address] [address] August, Screening breast examination Z12.39 and Acute recurrent maxillary sinusitis J01.[address] [address] August, Osteoarthritis of knees, bilateral M17.[address] [address] August, Chronic kidney disease, stage 4 (severe) N18.4 ; Acute non-recurrent maxillary sinusitis J01.00 ; Urinary problem R39.89 ; Bowel habit changes R19.4 ; Functional diarrhea K59.1 and History of colon polyps Z86.010 [place] [address] [address] Jul, Dysthymic disorder F34.1 and Generalized anxiety disorder F41.[address] [address] Jul, [address] [address] Jul, Dysthymic disorder F34.1 ; Generalized a nxiety disorder F41.1 and snf use of drug Z79.899 [place] [id number] [place] [address] 13 Jul, 2015 [facility] [address] [address] Jun, [facility] [address] [address] Jun, [facility] [address] [address] May, [facility] [address] [address] May, Dysthymic disorder F34.1 and Generalized anxiety disorder F41.1 [place] [address] [address] Apr, Kidney disease N28.9 [place] [address] [address] Apr, Generalized anxiety disorder F41.1 and D ysthymic disorder F34.1 [place] [address] [address] Apr, Chronic kidney disease, stage 4 (severe) N18.4 [place] [address] [address] Apr, Generalized anxiety disorder F41.1 ; Fady or depression, recurrent F33.9 and Sleep disturbance G47.9 [place] [address] [address] Mar, Generalized anxiety disorder F41.1 and D ysthymic disorder F34.1 [place] [address] [address] Mar, Generalized anxiety disorder F41.1 ; 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 and Insomnia G47.00 [place] [address] [address] Mar, [place] [address] [address] Mar, [place] [address] [address] Mar, Osteoarthritis of knees, bilateral M17.[address] [address] Mar, Hypertension I10 ; Hypothyroid E03.9 ; D ysthymic disorder F34.1 ; Chronic kidney disease, stage 4 (severe) N18.4 and Nausea & vomiting R11.2 [place] [address] [address] Mar, Generalized anxiety disorder F41.1 ; 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 and Insomnia G47.[address] [address] Mar, Dehydration E86.0 ; Chronic kidney disea se, stage 4 (severe) N18.4 and Nausea & vomiting R11.2 [facility] [address] [facility] [id number] [address] [place] [address] Mar, Gastroenteritis K52.[address] [address] Mar, [address] [address] Mar, [address] [address] Feb, Dysthymic disorder F34.1 and Generalized anxiety disorder F41.[address] [address] Jan, UTI (urinary tract infection) N39.0 ; As thma J45.909 ; Coronary artery disease involving yurok coronary artery of yurok heart, angina presence unspecified I25.10 ; Hypertension I10 ; Hypothyroid E03.9 ; Vitamin D deficiency E55.9 ; Insomnia G47.00 ; Palpitations R00.2 ; Depressed F32.9 ; Restless leg G25.81 and Anxiety F41.[address] [address] Jan, Dysthymic disorder F34.1 and Generalized anxiety disorder F41.1 [place] [address] [address] Jan, [place] [address] [address] Dec, [place] [address] [address] Dec, Alkalosis 276.3 ; Chronic kidney disease , Stage IV (severe) 585.4 ; Hyperpotassemia 276.7 ; Secondary hyperparathyroidism, renal 588.81 ; Proteinuria 791.0 ; Unspecified vitamin D deficiency 268.9 ; Anemia in chronic kidney disease 285.21 ; Other and unspecified hyperlipidemia 272.4 ; Hypertension, essential, benign 401.1 and Chronic kidney disease (CKD), stage III (moderate) 585.3 [place] [address] [address] Dec, [place] [address] [address] Dec, Depressive disorder, not elsewhere class ified 311 and Generalized anxiety disorder 300.02 [place] [address] [address] Dec, [place] [address] [address] Dec, [place] [address] [address] Nov, Depressive disorder, not elsewhere class ified 311 and Generalized anxiety disorder 300.02 [place] [address] [address] Nov, Arthritis of both knees 716.[address] [address] 07 Nov, 2014 PAF (paroxysmal atrial fibrillation) 427 .31 ; CAD (coronary artery disease) 414.00 ; Chest pain 786.50 and Chronic kidney disease (CKD) stage G4/A1, severely decreased glomerular filtration rate (GFR) between 15-29 mL/min/1.73 square meter and albuminuria creatinine ratio less than 30 mg/g 585.[address] [address] Oct, Coronary atherosclerosis of unspecified type of vessel, yurok or graft 414.00 ; Chronic kidney disease, Stage IV (severe) 585.4 ; Hypertension 401.9 and Edema 782.[address] [address] Oct, Depressive disorder, not elsewhere class ified 311 and Generalized anxiety disorder 300.02 [place] [id number] Oct, Depressive disorder, not elsewhere class ified 311 and Generalized anxiety disorder 300.[address] [address] Oct, [address] [address] Oct, [address] [address] Sep, [address] [address] Sep, Chronic kidney disease, Stage IV (severe ) 585.[address] [address] Sep, [address] [address] Sep, Coronary atherosclerosis of unspecified type of vessel, yurok or graft 414.00 ; Hypertension 401.9 ; Edema 782.3 and Hypothyroidism 244.[address] [address] Sep, Coronary atherosclerosis of unspecified type of vessel, yurok or graft 414.00 ; Hypertension 401.9 ; Fibromyalgia 729.1 ; Edema 782.3 ; Hypothyroidism 244.9 and Anemia 285.[address] [id number] [place] [address] Sep, Anxiety disorder, unspecified 300.00 and Depressive disorder, not elsewhere classified 311 [facility] [address] [place] [id number] [place] [address] Sep, [facility] [address] [place] [id number] [place] [address] August, Generalized anxiety disorder 300.02 [facility] [address] [address] August, Closed fracture of lateral malleolus 824 .2 [facility] [address] [address] Jul, [facility] [address] [address] Jul, [facility] [address] [address] Jun, [facility] [address] [address] Jun, [facility] [address] [address] Jun, [facility] [address] [address] Jun, [facility] [address] [address] Jun, [facility] [address] [address] Jun, [facility] [address] [place] [id number] [place] [address] May, [facility] [address] [address] May, [facility] [address] [place] [id number] [place] [address] May, [facility] [address] [address] 18 May, 2014 [facility] [place] [facility] [address] [id number] [place] [address] 16 May, 2014 [facility] [place] [facility] [address] [id number] [place] [address] 16 May, 2014 [facility] [place] [facility] [address] [id number] [place] [address] 13 May, 2014 [facility] [place] [facility] [address] [id number] [place] [address] 13 May, 2014 [facility] [place] [facility] [address] [id number] [place] [address] 10 May, 2014 [facility] [place] [facility] [address] [id number] [place] [address] 10 May, 2014 [facility] [place] [facility] [address] [id number] [place] [address] Apr, [facility] [place] [facility] [address] [id number] [place] [address] Apr, [facility] [place] [facility] [address] [id number] [place] [address] Mar, [facility] [place] [facility] [address] [id number] [place] [address] Mar, [facility] [place] [facility] [address] [id number] [place] [address] Mar, [facility] [place] [facility] [address] [id number] [place] [address] 15 Mar, 2014 [facility] [place] [facility] [address] [id number] [place] [address] 15 Mar, 2014 [facility] [place] [facility] [address] [id number] [place] [address] Mar, [facility] [place] [facility] [address] [id number] [place] [address] Mar, [facility] [place] [facility] [address] [id number] [place] [address] Feb, [facility] [place] [facility] [address] [facility] [id number] [place] [address] Feb, [facility] [place] [facility] [address] [id number] [place] [address] Feb, [facility] [place] [facility] [address] [id number] [place] [address] Jan, [facility] [place] [facility] [address] [id number] [place] [address] Jan, [facility] [place] [facility] [address] [facility] [id number] [place] [address] Jan, [facility] [place] [facility] [address] [id number] [place] [address] Jan, [facility] [place] [facility] [address] [id number] [place] [address] Jan, [facility] [place] [facility] [address] [id number] [place] [address] Jan, [facility] [place] [facility] [address] [id number] [place] [address] Jan, [facility] [place] [facility] [address] [id number] [place] [address] Jan, [facility] [place] [facility] [address] [id number] [place] [address] Jan, [facility] [place] [facility] [address] [id number] [place] [address] Jan, [facility] [place] [facility] [address] [id number] [place] [address] Nov, [facility] [place] [facility] [address] [facility] [id number] [place] [address] Nov, [facility] [place] [facility] [address] [id number] [place] [address] Nov, [facility] [place] [facility] [address] [id number] [place] [address] Oct, [facility] [place] [facility] [address] [id number] [place] [address] Oct, [facility] [place] [facility] [address] [id number] [facility] [place] [address] Oct, [facility] [place] [facility] [address] [facility] [id number] [place] [address] Oct, [facility] [place] [facility] [address] [facility] [id number] [facility] [place] [address] Oct, 2013 [facility] [place] [facility] [address] [facility] [id number] [place] [address] Oct, 2013 [facility] [place] [facility] [address] [facility] [id number] [place] [address] Oct, 2013 [facility] [place] [facility] [address] [facility] [id number] [facility] [place] [address] Oct, [facility] [place] [facility] [address] [facility] [id number] [place] [address] Oct, [facility] [place] [facility] [address] [id number] [facility] [place] [address] Sep, [facility] [place] [facility] [address] [facility] [id number] [facility] [place] [address] Sep, [facility] [place] [facility] [address] [id number] [facility] [place] [address] Sep, [facility] [place] [facility] [address] [id number] [place] [address] Sep, [facility] [place] [facility] [address] [id number] [place] [address] Sep, [facility] [place] [facility] [address] [facility] [id number] [facility] [place] [address] Sep, [facility] [place] [facility] [address] [facility] [id number] [place] [address] Sep, [facility] [place] [facility] [address] [facility] [id number] [place] [address] Sep, [facility] [place] [facility] [address] [id number] [place] [address] Sep, [facility] [place] [facility] [address] [id number] [place] [address] August, [facility] [place] [facility] [address] [facility] [id number] [place] [address] August, [facility] [place] [facility] [address] [id number] [place] [address] August, [facility] [place] [facility] [address] [id number] [place] [address] August, [facility] [place] [facility] [address] [id number] [place] [address] August, [facility] [place] [facility] [address] [id number] [place] [address] August, [facility] [place] [facility] [address] [id number] [place] [address] Jul, [facility] [place] [facility] [address] [id number] [place] [address] Jul, [facility] [place] [facility] [address] [id number] [place] [address] Jul, [facility] [place] [facility] [address] [id number] [place] [address] Jul, [facility] [place] [facility] [address] [id number] [place] [address] Jul, [facility] [place] [facility] [address] [id number] [place] [address] Jul, [facility] [place] [facility] [address] [id number] [place] [address] Jun, [facility] [place] [facility] [address] [id number] [place] [address] Jun, [facility] [place] [facility] [address] [id number] [place] [address] May, [facility] [place] [facility] [address] [id number] [place] [address] May, [facility] [place] [facility] [address] [id number] [place] [address] May, [facility] [place] [facility] [address] [id number] [place] [address] May, [facility] [place] [facility] [address] [id number] [place] [address] Apr, [facility] [place] [facility] [address] [id number] [place] [address] Apr, [facility] [place] [facility] [address] [id number] [place] [address] Mar, [facility] [place] [facility] [address] [id number] [place] [address] Mar, [facility] [place] [facility] [address] [id number] [place] [address] Mar, [facility] [place] [facility] [address] [id number] [place] [address] Mar, [facility] [place] [facility] [id number] [place] [address] Mar, [facility] [place] [facility] [address] [id number] [place] [address] Mar, [facility] [place] [facility] [address] [id number] [place] [address] Feb, [facility] [place] [facility] [address] [id number] [place] [address] Feb, [facility] [place] [facility] [address] [id number] [place] [address] 14 Feb, 2013 [facility] [place] [facility] [address] [id number] [place] [address] 14 Feb, 2013 [facility] [place] [facility] [address] [id number] [place] [address] 05 Feb, 2013 [facility] [address] [id number] [place] [address] 05 Feb, 2013 [facility] [address] [id number] [place] [address] 24 Jan, 2013 [facility] [address] [id number] [place] [address] Jan, [facility] [address] [facility] [id number] [place] [address] Jan, [facility] [address] [facility] [id number] [facility] [place] [address] Jan, [facility] [address] [id number] [place] [address] 08 Jan, 2013 [facility] [address] [id number] [place] [address] Jan, [facility] [address] [facility] [id number] [place] [address] Dec, [facility] [address] [id number] [place] [address] Dec, [facility] [address] [id number] [place] [address] Nov, [facility] [address] [id number] [place] [address] Nov, [facility] [address] [id number] [place] [address] Oct, [facility] [address] [id number] [place] [address] Oct, [facility] [address] [id number] [place] [address] Oct, [facility] [address] [id number] [place] [address] Oct, [facility] [address] [id number] [place] [address] Oct, [facility] [address] [id number] [place] [address] Oct, [facility] [address] [id number] [place] [address] Sep, [facility] [address] [id number] [place] [address] Sep, [facility] [address] [id number] [place] [address] Sep, [facility] [address] [id number] [place] [address] Sep, [facility] [address] [id number] [place] [address] August, [facility] [address] [id number] [place] [address] August, [facility] [address] [id number] [place] [address] August, [facility] [address] [id number] [place] [address] August, [facility] [address] [id number] [place] [address] August, [facility] [address] [id number] [place] [address] Jul, [facility] [address] [id number] [place] [address] Jul, [facility] [address] [id number] [place] [address] Jul, [facility] [address] [id number] [place] [address] Jul, [facility] [address] [id number] [place] [address] Jul, [facility] [address] [id number] [place] [address] Jul, [facility] [address] [id number] [place] [address] Jul, [facility] [address] [id number] [place] [address] Jul, [facility] [address] [id number] [place] [address] Jul, [facility] [address] [id number] [place] [address] Jul, [facility] [address] [facility] [id number] [place] [id number] Jun, [facility] [address] [id number] [place] [address] Jun, [facility] [address] [id number] [place] [address] Jun, [facility] [address] [id number] [place] [address] Jun, [facility] [address] [id number] [place] [address] Jun, [facility] [address] [id number] [place] [address] May, [facility] [address] [id number] [place] [address] May, [facility] [address] [id number] [place] [address] May, [facility] [address] [id number] [place] [address] Apr, [facility] [address] [id number] [place] [address] Apr, [facility] [address] [id number] [place] [address] Apr, [facility] [address] [id number] [place] [address] Apr, [facility] [address] [id number] [place] [address] Apr, [facility] [address] [id number] [place] [address] Apr, [facility] [address] [id number] [place] [address] Mar, [facility] [address] [id number] [place] [address] Mar, [facility] [address] [id number] [place] [address] Mar, [facility] [address] [id number] [place] [address] Mar, [facility] [address] [id number] [place] [address] Feb, [facility] [address] [id number] [place] [address] Feb, [facility] [address] [id number] [place] [address] Feb, [facility] [address] [id number] [place] [address] Feb, [facility] [address] [id number] [place] [address] Feb, [facility] [address] [id number] [place] [address] Feb, [facility] [address] [id number] [place] [address] Feb, [facility] [address] [id number] [place] [address] Feb, [facility] [address] [id number] [place] [address] Feb, [facility] [address] [id number] [place] [address] Feb, [facility] [address] [id number] [place] [address] Feb, [facility] [address] [id number] [place] [address] Feb, [facility] [address] [id number] [place] [address] Feb, [facility] [address] [id number] [place] [address] Feb, [facility] [address] [id number] [place] [address] Feb, [facility] [address] [id number] [place] [address] Feb, [facility] [address] [id number] [place] [address] Jan, [facility] [address] [id number] [place] [address] Jan, [facility] [address] [id number] [place] [address] Jan, [facility] [address] [id number] [place] [address] Jan, [facility] [address] [id number] [place] [address] Jan, [facility] [address] [id number] [place] [address] Jan, [facility] [address] [id number] [place] [address] Jan, [facility] [address] [id number] [place] [address] Jan, [facility] [address] [id number] [place] [address] 16 Jan, 2012 [facility] [address] [id number] [place] [address] Jan, [facility] [address] [id number] [place] [address] 15 Jan, 2012 [facility] [address] [id number] [place] [address] Jan, [facility] [address] [id number] [place] [address] 26 Dec, 2011 [facility] [address] [id number] [place] [address] 26 Dec, 2011 [facility] [address] [id number] [place] [address] 24 Sep, 2011 [facility] [address] [id number] [place] [address] 23 Sep, 2011 [facility] [address] [id number] [place] [address] 22 Dec, 2011 [facility] [address] [id number] [place] [address] 21 Dec, 2011 [facility] [address] [id number] [place] [address] 20 Dec, 2011 [facility] [address] [id number] [place] [address] 20 Sep, 2011 [facility] [address] [id number] [place] [address] 07 Sep, 2011 [facility] [address] [id number] [place] [address] 06 Sep, 2011 [facility] [address] [id number] [place] [address] 06 Sep, 2011 [facility] [address] [id number] [place] [address] 05 Dec, 2011 [facility] [address] [id number] [place] [address] 23 Nov, 2011 [facility] [address] [id number] [place] [address] 17 Nov, 2011 [facility] [address] [id number] [place] [address] 13 Nov, 2011 [facility] [address] [id number] [place] [address] Nov, 2011 [facility] [address] [id number] [place] [address] 08 Nov, 2011 [facility] [address] [id number] [place] [address] Nov, [facility] [address] [id number] [place] [address] Nov, [facility] [address] [id number] [place] [address] Nov, [facility] [address] [id number] [place] [address] Oct, [facility] [address] [id number] [facility] [place] [address] Oct, [facility] [address] [facility] [id number] [facility] [place] [address] Oct, [facility] [address] [id number] [facility] [place] [address] Oct, [facility] [address] [id number] [facility] [place] [address] Oct, [facility] [address] [facility] [id number] [facility] [place] [address] Oct, [facility] [address] [id number] [place] [address] Oct, [facility] [address] [id number] [place] [address] Sep, [facility] [address] [id number] [place] [address] Sep, [facility] [address] [id number] [place] [address] August, [facility] [address] [id number] [place] [address] August, [facility] [address] [id number] [place] [address] August, [facility] [address] [id number] [place] [address] August, [facility] [address] [id number] [place] [address] Jul, [facility] [address] [id number] [place] [address] Jul, [facility] [address] [id number] [place] [address] Jul, [facility] [address] [id number] [place] [address] Jul, [facility] [address] [id number] [place] [address] 04 Jul, 2011 [facility] [address] [id number] [place] [address] Jul, [facility] [address] [id number] [place] [address] Jul, [facility] [address] [id number] [place] [address] Jul, [facility] [address] [id number] [place] [address] Jul, [facility] [address] [id number] [place] [address] Jun, [facility] [address] [id number] [place] [address] Jun, [facility] [address] [id number] [place] [address] 15 Jun, 2011 [facility] [address] [id number] [place] [address] 14 Jun, 2011 [facility] [address] [id number] [place] [address] Jun, [facility] [address] [id number] [place] [address] Jun, [facility] [address] [id number] [place] [address] Jun, [facility] [address] [id number] [place] [address] May, [facility] [address] [id number] [place] [address] 24 May, 2011 [facility] [address] [id number] [place] [address] May, [facility] [address] [id number] [place] [address] 16 May, 2011 [facility] [address] [id number] [place] [address] May, [facility] [address] [id number] [place] [address] Apr, [facility] [address] [id number] [place] [address] Apr, [facility] [address] [id number] [place] [address] Apr, [facility] [address] [id number] [place] [address] Apr, [facility] [address] [id number] [place] [address] Apr, [facility] [address] [id number] [place] [address] Mar, [facility] [address] [id number] [place] [address] Mar, [facility] [address] [id number] [place] [address] Mar, [facility] [address] [id number] [place] [address] Mar, [facility] [address] [id number] [place] [address] Mar, [facility] [address] [id number] [place] [address] 08 Mar, 2011 [facility] [address] [id number] [place] [address] Mar, [facility] [address] [id number] [place] [address] Feb, [facility] [address] [id number] [place] [address] Feb, [facility] [address] [id number] [place] [address] 08 Feb, 2011 [facility] [address] [id number] [place] [address] Feb, [facility] [address] [id number] [place] [address] Jan, [facility] [address] [id number] [place] [address] Jan, [facility] [id number] [place] [address] Jan, [facility] [id number] [place] [address] Jan, [facility] [id number] [place] [address] Nov, [facility] [id number] [place] [address] Mar, [facility] [id number] [place] [address] Mar, [facility] [id number] [place] [address] Mar, [facility] [id number] [place] [address] Mar, [facility] [id number] [place] [address] Mar, [facility] [id number] [place] [address] Mar, [facility] [id number] [place] [address] Feb, [facility] [id number] [place] [address] Feb, [facility] [id number] [place] [address] Jan, [facility] [id number] [place] [address] Jan, [facility] [id number] [place] [address] Jan, IMMUNIZATIONS No Known Immunizations SOCIAL HISTORY [...] History CPAP Noncompliance_ Dr. Madden advises a [employer] driving. Medical History Bacterial meningitis 12/2016 Medical [...] 09-2015 & 2007 Surgical History Bladder surgery [facility] 03/2016 Surgical History Neurotransmitter placed 10/2017 Surgical History retninal repair 12/31/2017 Surgical History cataract surgery 2018 Surgical History cataract surgery 2018 Surgical History SCS trial x7 days 2018 Surgical History SCS implant removed. 2019 Surgical History right shoulder surgery to repair torn te ndons 02/2019 Hospitalization History Surgeries Only Hospitalization History bacterial meningitis December 2016 Hospitalization History [facility] psych for SI 1988 Hospitalization History VC-Altered mental status 05/2017 Hospitalization History sepsis, UTI, headache 08/03/2018-
[2019-08-01] MEDS ORDERED: PIPERACILLIN/TAZOBACTAM (BULK) 4.5 GM in NS (IVPB) 100 ML IV NR (10:00)
[2019-08-01] MEDS ORDERED: VANCOMYCIN INJECTION 2,000 MG in NS IV 500 ML 500 ML IV NR (10:00)
--- OUTSIDE RECORDS SUMMARY | 2019-08-01 10:00 | XMS REPORT ---
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 Operator Name Role Phone Migration, Doctor Unavailable Unavailable PROBLEMS Type Condition ICD9-CM Code RFZ18-IQ Code Onset Dates Condition S tatus SNOMED Code Problem Generalized anxiety disorder F41.1 A ctive 12432463 Problem Low back pain M54.5 Active 404645 009 Problem Insomnia G47.00 Active 183543413 Problem Hypothyroid E03.9 Active 18193353 Problem Palpitations R00.2 Active 2418773 2 Problem Asthma J45.909 Active 921690813 Problem Mixed stress and urge urinary incontinence N39.46 Active 519632680 Problem Fibromyalgia M79.7 Active 2092525 05 Problem Stage 3 chronic kidney disease N18.3 Active 130777755 Problem Body mass index (BMI) of 40.0-44.9 in adult Z68.41 Active 491546118 Problem Seasonal allergic rhinitis due to pollen J30.1 Active 78161719 Problem Atherosclerosis of 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.119 Active 3666438384851 Problem Primary osteoarthritis of left knee M17.12 Active 667698817 Problem Hypercholesterolemia E78.00 Active 89810603 Problem Essential (primary) hypertension I10 Active 68218813 Problem Restless leg syndrome G25.81 Active 18013941 Problem Chronic pain syndrome G89.4 Active 072116280 Problem Perimenopausal vasomotor symptoms N95.1 Active 340261233 Problem Major depressive disorder, recurrent, moderate F33 .1 Active 715134079 ALLERGIES No Information ENCOUNTERS Encounter Location Date Diagnosis [facility] [id number] [place] [address] Jun, [facility] [address] [address] Jun, [facility] [address] [id number] [place] [address] May, [facility] [id number] [place] [address] 05 May, 2019 Chronic pain syndrome G89.4 [facility] [address] [address] 03 May, 2019 Generalized anxiety disorder F41.1 and M ajor depressive disorder, recurrent episode with anxious distress F33.9 [place] [address] [address] Apr, Major depressive disorder, recurrent, mo derate F33.1 ; Generalized anxiety disorder F41.1 and Dysthymic disorder F34.1 [place] [address] [address] Apr, Chronic pain syndrome G89.4 [place] [address] [address] Apr, Acute pain of right knee M25.561 [place] [address] [address] Apr, [place] [address] [address] Mar, Major depressive disorder, recurrent, mo derate F33.1 ; Generalized anxiety disorder F41.1 and Dysthymic disorder F34.1 [facility] [id number] [place] [address] Mar, Fluid collection of middle e ar H65.90 and Dizziness R42 [place] [address] [address] Mar, [place] [address] [address] Mar, [place] [address] [address] Mar, Essential (primary) hypertension I10 ; S tage 3 chronic kidney disease N18.3 ; Hypercholesterolemia E78.00 ; Asthma J45.909 ; Recurrent UTI N39.0 ; Status post shoulder surgery Z98.890 and Encounter for immunization Z23 [facility] [address] [address] Mar, Chronic pain syndrome G89.4 [place] [address] [address] Feb, [place] [address] [address] Feb, [facility] [address] [address] Feb, Oral thrush B37.0 and Sore throat J02.9 [place] [address] [address] Feb, Chronic pain syndrome G89.4 [place] [address] [address] Jan, [place] [address] [address] Jan, Chronic pain syndrome G89.4 [place] [address] [address] Jan, Hypercholesterolemia E78.00 [place] [address] [address] Jan, [place] [address] [address] Dec, Chronic kidney disease, stage 4 (severe) N18.4 [place] [address] [address] Dec, Major depressive disorder, recurrent, mo derate F33.1 ; Generalized anxiety disorder F41.1 and Dysthymic disorder F34.1 [place] [address] [address] Dec, Generalized anxiety disorder F41.1 and M shiraor depressive disorder, recurrent episode with anxious distress F33.9 [place] [address] [address] Dec, [place] [address] [address] Dec, [place] [address] [address] Dec, Encounter for immunization Z23 [place] [address] [address] Dec, Diarrhea, unspecified type R19.7 and Hem orrhoids, unspecified hemorrhoid type K64.9 [place] [address] [address] Dec, Encounter for Medicare annual wellness e xam Z00.00 ; Chronic kidney disease, stage 4 (severe) N18.4 ; Encounter for immunization Z23 ; Major depressive disorder, recurrent, moderate F33.1 ; Atherosclerosis of siletz tribe coronary artery of siletz tribe heart with angina pectoris I25.119 ; Asthma J45.909 ; Hypothyroid E03.9 and Fibromyalgia M79.7 [place] [address] [address] Dec, Chronic pain syndrome G89.4 [place] [address] [address] Nov, Major depressive disorder, recurrent, mo derate F33.1 ; Generalized anxiety disorder F41.1 and Dysthymic disorder F34.1 [place] [address] [address] Nov, [place] [address] [address] Nov, Chronic pain syndrome G89.4 [place] [address] [address] Nov, Restless leg syndrome G25.81 [place] [address] [address] Nov, Pain in right shoulder M25.511 ; Restles s leg syndrome G25.81 ; Other chronic pain G89.29 ; Screening for breast cancer Z12.39 ; Insomnia G47.00 and Morbid obesity E66.01 [facility] [id number] [place] [address] Nov, [facility] [address] [address] Oct, Major depressive disorder, recurrent, mo derate F33.1 ; Generalized anxiety disorder F41.1 and Dysthymic disorder F34.1 [facility] [address] [address] Oct, [facility] [address] [address] Oct, Cellulitis of left lower extremity L03.1 16 and Morbid obesity E66.01 [facility] [id number] [place] [address] Oct, [place] [address] [address] Oct, [facility] [address] [address] Oct, Generalized anxiety disorder F41.1 and M ajor depressive disorder, recurrent episode with anxious distress F33.9 [facility] [id number] [place] [address] Oct, [facility] [id number] [place] [address] Oct, Chronic pain syndrome G89.4 [facility] [id number] [place] [address] Oct, Chronic pain syndrome G89.4 [facility] [id number] [place] [address] Oct, UTI symptoms R39.9 ; Acute c ystitis without hematuria N30.00 and Morbid obesity E66.01 [facility] [id number] [place] [address] Oct, [facility] [id number] [place] [address] Oct, Chronic pain syndrome G89.4 [place] [address] [address] Sep, [place] [address] [address] Sep, Generalized anxiety disorder F41.1 and M shiraor depressive disorder, recurrent episode with anxious distress F33.9 [place] [address] [address] 17 Sep, 2018 Chronic kidney disease, stage 4 (severe) N18.[address] [address] Sep, Fibromyalgia M79.7 and Chronic pain synd lisseth G89.[address] [address] Sep, [address] [place] [address] Sep, Chronic pain syndrome G89.4 [place] [address] [address] Sep, [address] [address] Sep, Chronic pain syndrome G89.4 ; Fibromyalg ia M79.7 and Morbid obesity E66.01 [place] [address] [address] August, Generalized anxiety disorder F41.1 and M zion depressive disorder, recurrent episode with anxious distress F33.9 [place] [address] [address] August, Fibromyalgia M79.[address] [address] August, Restless leg syndrome G25.81 ; Vitamin D deficiency E55.9 ; Urinary tract infection without hematuria, site unspecified N39.0 ; Pain in right shoulder M25.511 ; Other chronic pain G89.29 ; Biceps tendinitis on right M75.21 and Morbid obesity E66.01 [place] [address] [address] Jul, Urinary tract infection without hematuri a, site unspecified N39.0 and Morbid obesity E66.01 [facility] [address] [address] Jul, [facility] [address] [address] Jul, [place] [address] [address] Jul, Fibromyalgia M79.7 [place] [address] [address] Jul, Acute pain of right shoulder M25.511 [place] [address] [address] Jul, Acute pain of right shoulder M25.511 and Morbid obesity E66.01 [facility] [address] [address] Jun, [place] [address] [address] Jun, Generalized anxiety disorder F41.1 and M ajor depressive disorder, recurrent episode with anxious distress F33.9 [facility] [address] [address] Jun, [facility] [address] [address] Jun, Fibromyalgia M79.7 [facility] [address] [facility] [id number] [place] [address] Jun, Acute pain of right shoulder M25.511 ; Acute pain of right hip M25.551 and Morbid obesity E66.01 [facility] [address] [address] May, Burning with urination R30.0 ; Vaginal d ischarge N89.8 ; Chronic kidney disease, stage 4 (severe) N18.4 ; Body mass index (BMI) of 40.0-44.9 in adult Z68.41 and Morbid obesity E66.01 [facility] [address] [address] 07 May, 2018 Fibromyalgia M79.7 [facility] [address] [address] 06 May, 2018 Generalized anxiety disorder F41.1 and M zion depressive disorder, recurrent episode with anxious distress F33.9 [address] [place] [address] [address] Apr, [facility] [address] [address] 08 Apr, 2018 Fibromyalgia M79.7 [facility] [address] [facility] [id number] [address] [place] [address] 14 Mar, 2018 Acute UTI N39.0 and Dysuria R30.0 [facility] [address] [address] Mar, Fibromyalgia M79.7 [facility] [address] [address] 15 Feb, 2018 [facility] [address] [address] Feb, [facility] [address] [address] Feb, [facility] [address] [address] Feb, Fibromyalgia M79.7 [facility] [address] [address] 08 Feb, 2018 Complicated UTI (urinary tract infection ) N39.0 [facility] [address] [address] 07 Feb, 2018 [facility] [address] [address] Jan, Generalized anxiety disorder F41.1 and M shiraor depressive disorder, recurrent episode with anxious distress F33.9 [facility] [address] [facility] [id number] [address] [place] [address] Jan, Acute conjunctivitis of left eye, unspecified acute conjunctivitis type H10.32 [facility] [address] [address] Jan, [facility] [address] [address] Jan, Acute non-recurrent maxillary sinusitis J01.00 ; Dysuria R30.0 ; Perimenopausal vasomotor symptoms N95.1 and Fibromyalgia M79.7 [facility] [address] [address] Dec, Vitamin D deficiency E55.9 [facility] [address] [address] Dec, Vitamin D deficiency E55.9 [facility] [address] [address] 24 Dec, 2017 Vitamin D deficiency E55.9 [facility] [address] [address] Dec, [facility] [address] [address] Dec, Fibromyalgia M79.7 [facility] [address] [address] Nov, [facility] [address] [address] Nov, [facility] [address] [address] Nov, [facility] [address] [address] Nov, Fibromyalgia M79.7 ; Vision changes H53. 9 ; Chest wall pain R07.89 and Chronic pain syndrome G89.4 [address] [place] [address] Nov, [address] [place] [address] [address] Nov, Rash of hands R21 [address] [place] [address] Nov, Generalized anxiety disorder F41.1 and Tae donovan depressive disorder, recurrent episode with anxious distress F33.9 [address] [place] [address] [address] Nov, Fibromyalgia M79.7 [place] [address] [address] Nov, Complicated UTI (urinary tract infection ) N39.0 [address] [place] [address] [address] Oct, [address] [place] [address] [address] Oct, Generalized anxiety disorder F41.1 and Tae shirarosanna depressive disorder, recurrent episode with anxious distress F33.9 [address] [place] [address] Oct, [address] [place] [address] [address] Oct, Fibromyalgia M79.7 [address] [place] [address] [address] Sep, Restless leg syndrome G25.81 and Restles s leg G25.81 [address] [place] [address] Sep, [address] [place] [address] [address] Sep, Seasonal allergic rhinitis due to pollen J30.1 ; Screening for breast cancer Z12.31 ; Chest pain at rest R07.9 ; Restless leg syndrome G25.81 ; Essential (primary) hypertension I10 and Depressed F32.9 [facility] [address] [address] August, Fibromyalgia M79.7 [facility] [address] [address] August, [place] [address] [address] August, [place] [address] [address] August, Abnormal chest CT R93.8 [address] [place] [address] [address] August, Generalized anxiety disorder F41.1 and M shiraor depressive disorder, recurrent episode with anxious distress F33.9 [address] [place] [address] [address] August, Abnormal chest CT R93.8 [address] [place] [address] [address] Jul, [place] [address] [address] Jul, Chronic kidney disease, stage 4 (severe) N18.4 [address] [place] [address] [address] Jul, [place] [address] [address] Jul, Restless leg G25.81 ; Mixed stress and u rge urinary incontinence N39.46 and Fibromyalgia M79.7 [address] [place] [address] [address] Jul, Chronic kidney disease, stage 4 (severe) N18.4 [address] [place] [address] [address] Jun, Orthostatic hypotension I95.1 ; Chronic kidney disease, stage 4 (severe) N18.4 ; Chest wall discomfort R07.89 and Body mass index (BMI) of 40.0- 44.9 in adult Z68.41 [facility] [address] [address] Jun, [facility] [address] [address] Jun, Orthostatic hypotension I95.1 [facility] [address] [address] Jun, [facility] [address] [facility] [id number] [place] [address] Jun, Orthostatic hypotension I95. 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 [place] [address] [address] May, Chronic kidney disease, stage 4 (severe) N18.4 [place] [address] [address] May, Chronic kidney disease, stage 4 (severe) N18.4 [place] [address] [address] May, Abnormal chest CT R93.8 [facility] [id number] [place] [address] May, [facility] [address] [address] May, [facility] [address] [address] May, Generalized anxiety disorder F41.1 and M shiraor depressive disorder, recurrent episode with anxious distress F33.9 [facility] [address] [address] May, Mood disorder F39 [facility] [address] [address] Apr, [facility] [address] [address] Apr, Infected skin lesion L08.[address] rain of right shoulder region, initial encounter S46.911A [facility] [address] [address] Apr, Generalized anxiety disorder F41.1 and M zion depressive disorder, recurrent episode with anxious distress F33.9 [facility] [address] [address] Apr, [facility] [address] [address] Apr, Recent urinary tract infection Z87.440 a nd Hypothyroid E03.9 [facility] [address] [address] Apr, Generalized anxiety disorder F41.1 and M zion depressive disorder, recurrent episode with anxious distress F33.9 [facility] [address] [address] Apr, Recent urinary tract infection Z87.440 [facility] [address] [address] Mar, [facility] [id number] [place] [address] Mar, Dysuria R30.0 ; Acute cystit is without hematuria N30.00 and BMI 40.0-44.9, adult Z68.41 [facility] [address] [address] 14 Mar, 2017 [facility] [address] [address] Mar, [place] [address] [address] Mar, Generalized anxiety disorder F41.1 and M zion depressive disorder, recurrent episode with anxious distress F33.9 [place] [address] [address] Feb, Conjunctivitis, bacterial H10.9 [place] [address] [address] Feb, [facility] [id number] [place] [address] Feb, Conjunctivitis, bacterial H1 0.9 [place] [address] [address] 15 Feb, 2017 [facility] [id number] [place] [address] 10 Feb, 2017 Dysuria R30.0 ; Acute cystit is N30.00 and BMI 40.0-44.9, adult Z68.41 [place] [address] [address] Feb, [place] [address] [address] Feb, Generalized anxiety disorder F41.1 and M zion depressive disorder, recurrent episode with anxious distress F33.9 [place] [address] [address] Feb, Mood disorder F39 and BMI 40.0-44.9, feli lt Z68.41 [place] [address] [address] Jan, [place] [address] [address] Jan, [place] [address] [address] Jan, Hypothyroid E03.9 [place] [address] [address] Jan, [place] [address] [address] Jan, Chronic kidney disease, unspecified N18. 9 ; Hypokalemia E87.6 ; Essential (primary) hypertension I10 ; Fibromyalgia M79.7 ; Coronary artery disease involving siletz tribe coronary artery of siletz tribe heart, angina presence unspecified I25.10 ; Hypothyroid E03.9 and Encounter for immunization Z23 [place] [address] [address] Jan, Hypothyroid E03.9 [place] [address] [address] Jan, [place] [address] [address] Dec, Vitamin D deficiency E55.9 [place] [address] [address] Dec, Primary osteoarthritis of left knee M17. 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 [place] [address] [address] 19 Dec, 2016 Fibromyalgia M79.7 [place] [address] [address] 18 Dec, 2016 Mood disorder F39 [place] [address] [address] 13 Dec, 2016 [place] [id number] [place] [address] 13 Dec, 2016 Generalized anxiety disorder F41.1 and Tae donovan depressive disorder, recurrent episode with anxious distress F33.9 [facility] [id number] [place] [address] 11 Dec, 2016 [facility] [id number] [place] [address] 08 Sep, 2016 Streptococcal meningitis G00.2 [facility] [address] [address] 07 Sep, 2016 Streptococcal meningitis G00.2 [facility] [id number] [place] [address] 07 Sep, 2016 [facility] [id number] [place] [address] 06 Dec, 2016 Streptococcal meningitis G00.2 [place] [id number] [place] [address] 06 Dec, 2016 [place] [id number] [place] [address] 06 Dec, 2016 Major depressive disorder, recurrent epi sode with anxious distress F33.9 [place] [id number] [place] [address] Nov, Fever, unspecified fever cause R50.9 [facility] [id number] [place] [address] 24 Nov, 2016 [facility] [address] [address] Nov, Hypothyroid E03.9 [facility] [id number] [place] [address] Nov, Generalized anxiety disorder F41.1 and Tae donovan depressive disorder, recurrent episode with anxious distress F33.9 [facility] [id number] [place] [address] Nov, [facility] [address] [id number] [place] [id number] Oct, Dental examination Z01.20 [place] [address] [address] Oct, Generalized anxiety disorder F41.1 and M shirarosanna depressive disorder, recurrent episode with anxious distress F33.9 [place] [address] [address] Oct, Chronic kidney disease, stage 4 (severe) N18.4 [place] [address] [address] Oct, [place] [address] [address] Oct, Fibromyalgia M79.7 [place] [address] [address] Oct, [place] [address] [address] Oct, Generalized anxiety disorder F41.1 ; Fady or depressive disorder, recurrent episode with anxious distress F33.9 and Bipolar disorder, current episode manic without psychotic features F31.10 [place] [address] [address] Sep, [place] [address] [address] Sep, [place] [address] [address] Sep, Vitamin D deficiency E55.9 [place] [address] [address] Sep, Vitamin D deficiency E55.9 [place] [address] [address] Sep, [place] [address] [address] Sep, Chronic kidney disease, stage 4 (severe) N18.4 ; Hypothyroid E03.9 ; Restless leg G25.81 ; Fibromyalgia M79.7 ; Essential (primary) hypertension I10 ; Vitamin D deficiency E55.9 ; Dyspepsia R10.13 ; Anemia in chronic kidney disease D63.1 ; Chronic kidney disease, unspecified N18.9 ; Coronary artery disease involving [place] coronary artery of [place] heart, angina presence unspecified I25.10 ; Screening breast examination Z12.39 and Low back pain M54.5 [place] [address] [address] August, Generalized anxiety disorder F41.1 and M shiraor depressive disorder, recurrent episode with anxious distress F33.9 [place] [address] [address] August, Generalized anxiety disorder F41.1 and M shiraor depressive disorder, recurrent episode with anxious distress F33.9 [place] [address] [address] August, Fibromyalgia M79.7 [place] [address] [address] Jul, Generalized anxiety disorder F41.1 and M zion depressive disorder, recurrent episode with anxious distress F33.9 [place] [address] [address] Jul, Fibromyalgia M79.7 [place] [address] [address] Jul, Generalized anxiety disorder F41.1 [place] [address] [address] May, [place] [address] [address] May, Hypothyroid E03.9 [place] [address] [address] May, Chronic kidney disease, stage 4 (severe) N18.4 ; Hypothyroid E03.9 ; Restless leg G25.81 ; Fibromyalgia M79.7 ; Essential (primary) hypertension I10 ; Vitamin D deficiency E55.9 ; Dyspepsia R10.13 ; Acute non-recurrent maxillary sinusitis J01.00 ; Anemia in chronic kidney disease D63.1 ; Chronic kidney disease, unspecified N18.9 and Coronary artery disease involving siletz tribe coronary artery of siletz tribe heart, angina presence unspecified I25.10 [facility] [address] [address] May, Vitamin D deficiency, unspecified E55.9 [place] [address] [address] May, Generalized anxiety disorder F41.1 and M shiraor depressive disorder, recurrent episode with anxious distress F33.9 [place] [address] [address] Apr, Pain in right knee M25.561 and Pain in l eft knee M25.562 [place] [address] [address] Apr, [place] [address] [address] Apr, [place] [address] [address] Apr, [place] [address] [address] Mar, Generalized anxiety disorder F41.1 and M shiraor depressive disorder, recurrent episode with anxious distress F33.9 [place] [address] [address] Mar, Generalized anxiety disorder F41.1 and M shiraor depressive disorder, recurrent episode with anxious distress F33.9 [place] [address] [address] Mar, [place] [address] [address] Mar, [facility] [address] [address] Mar, [place] [address] [address] Mar, Asthma J45.909 and Fibromyalgia M79.7 [place] [address] [address] Mar, Chronic kidney disease, stage 4 (severe) N18.4 ; Vitamin D deficiency E55.9 and Essential (primary) hypertension I10 [place] [address] [address] Feb, [place] [address] [address] Feb, Dysuria R30.0 ; Mixed stress and urge ur inary incontinence N39.46 ; Fibromyalgia M79.7 and Chronic kidney disease, stage IV (severe) N18.4 [place] [address] [address] Feb, Chronic kidney disease, stage 4 (severe) N18.4 [place] [address] [address] Feb, Chronic kidney disease, stage 4 (severe) N18.4 [place] [address] [address] Feb, [place] [address] [address] Feb, Vitamin D deficiency, unspecified E55.9 [place] [address] [address] Jan, [place] [address] [address] Jan, [place] [address] [address] Dec, [place] [address] [address] Dec, Chronic kidney disease, stage 4 (severe) N18.4 [place] [address] [address] Dec, Dysthymic disorder F34.1 and Generalized anxiety disorder F41.1 [facility] [address] [address] Dec, [facility] [address] [address] Dec, [facility] [address] [address] Dec, Dysthymic disorder F34.1 and Generalized anxiety disorder F41.1 [place] [address] [address] 08 Dec, 2015 Dysuria R30.0 ; Chronic kidney disease, stage 4 (severe) N18.4 ; Hypertension I10 ; Dyspepsia R10.13 ; Yeast dermatitis B37.2 ; Palpitations R00.2 ; Hypothyroid E03.9 ; Functional diarrhea K59.1 and Other seasonal allergic rhinitis J30.2 [facility] [address] [place] [id number] [place] [address] Dec, [facility] [address] [address] Nov, Dysuria R30.0 and Stress inc ontinence N39.3 [place] [address] [address] Nov, [facility] [address] [address] Nov, [facility] [address] [address] Nov, Osteoarthritis of knees, bilateral M17.0 [facility] [address] [address] Nov, Dysthymic disorder F34.1 and Generalized anxiety disorder F41.1 [facility] [address] [address] Nov, [place] [address] [address] 15 Nov, 2015 [facility] [address] [address] Nov, Urgency of urination R39.15 [facility] [address] [address] Nov, [place] [address] [address] Nov, Chronic kidney disease, stage 4 (severe) N18.4 [place] [address] [address] Oct, Hypertension I10 ; Coronary artery disea se involving siletz tribe coronary artery of siletz tribe heart, angina presence unspecified I25.10 ; Palpitations R00.2 ; Hypothyroid E03.9 ; Right foot pain M79.671 ; Functional diarrhea K59.1 and Other seasonal allergic rhinitis J30.2 [place] [address] [address] Oct, Dysthymic disorder F34.1 and Generalized anxiety disorder F41.1 [place] [address] [address] Sep, [place] [address] [address] Sep, [place] [address] [address] Sep, [facility] [address] [address] Sep, [facility] [address] [address] Sep, [facility] [address] [address] Sep, Dysthymic disorder F34.1 and Generalized anxiety disorder F41.1 [facility] [address] [address] Sep, Asthma with acute exacerbation in adult J45.901 ; Dysuria R30.0 ; Chronic kidney disease, stage 4 (severe) N18.4 and History of anemia Z86.2 [place] [address] [address] 2015 Generalized anxiety disorder F41.1 and D ysthymic disorder F34.1 [place] [address] [address] August, Screening breast examination Z12.39 and Acute recurrent maxillary sinusitis J01.01 [place] [address] [address] August, Osteoarthritis of knees, bilateral M17.0 [place] [address] [address] August, Chronic kidney disease, stage 4 (severe) N18.4 ; Acute non-recurrent maxillary sinusitis J01.00 ; Urinary problem R39.89 ; Bowel habit changes R19.4 ; Functional diarrhea K59.1 and History of colon polyps Z86.010 [place] [address] [address] 29 Jul, 2015 Dysthymic disorder F34.1 and Generalized anxiety disorder F41.1 [place] [address] [address] Jul, [place] [address] [address] 18 Jul, 2015 Dysthymic disorder F34.1 ; Generalized a nxiety disorder F41.1 and retirement use of drug Z79.899 [place] [address] [address] Jul, [place] [address] [address] 16 Jun, 2015 [place] [address] [address] 08 Jun, 2015 [place] [address] [address] May, [place] [address] [address] May, Dysthymic disorder F34.1 and Generalized anxiety disorder F41.1 [place] [address] [address] Apr, Kidney disease N28.9 [place] [address] [address] Apr, Generalized anxiety disorder F41.1 and D ysthymic disorder F34.1 [place] [address] [address] Apr, Chronic kidney disease, stage 4 (severe) N18.4 [place] [address] [address] Apr, Generalized anxiety disorder F41.1 ; Fady or depression, recurrent F33.9 and Sleep disturbance G47.9 [place] [address] [address] Mar, Generalized anxiety disorder F41.1 and D ysthymic disorder F34.1 [place] [address] [address] Mar, Generalized anxiety disorder F41.1 ; 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 and Insomnia G47.00 [place] [address] [address] Mar, [place] [address] [address] Mar, [place] [address] [address] Mar, Osteoarthritis of knees, bilateral M17.0 [place] [address] [address] Mar, Hypertension I10 ; Hypothyroid E03.9 ; D ysthymic disorder F34.1 ; Chronic kidney disease, stage 4 (severe) N18.4 and Nausea & vomiting R11.2 [facility] [address] [address] 15 Mar, 2015 Generalized anxiety disorder F41.1 ; 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 and Insomnia G47.00 [facility] [address] [address] Mar, Dehydration E86.0 ; Chronic kidney disea se, stage 4 (severe) N18.4 and Nausea & vomiting R11.2 [facility] [address] [facility] [id number] [address] [place] [address] 08 Mar, 2015 Gastroenteritis K52.[address] [address] Mar, [place] [address] [address] Mar, [address] [address] Feb, Dysthymic disorder F34.1 and Generalized anxiety disorder F41.[address] [address] Jan, UTI (urinary tract infection) N39.0 ; As thma J45.909 ; Coronary artery disease involving siletz tribe coronary artery of siletz tribe heart, angina presence unspecified I25.10 ; Hypertension I10 ; Hypothyroid E03.9 ; Vitamin D deficiency E55.9 ; Insomnia G47.00 ; Palpitations R00.2 ; Depressed F32.9 ; Restless leg G25.81 and Anxiety F41.9 [place] [address] [address] Jan, Dysthymic disorder F34.1 and Generalized anxiety disorder F41.1 [place] [address] [address] Jan, [facility] [address] [address] Dec, [place] [address] [address] Dec, Alkalosis 276.3 ; Chronic kidney disease , Stage IV (severe) 585.4 ; Hyperpotassemia 276.7 ; Secondary hyperparathyroidism, renal 588.81 ; Proteinuria 791.0 ; Unspecified vitamin D deficiency 268.9 ; Anemia in chronic kidney disease 285.21 ; Other and unspecified hyperlipidemia 272.4 ; Hypertension, essential, benign 401.1 and Chronic kidney disease (CKD), stage III (moderate) 585.3 [place] [address] [address] Dec, [address] [address] Dec, Depressive disorder, not elsewhere class ified 311 and Generalized anxiety disorder 300.[address] [address] Dec, [address] [address] Dec, [place] [address] [address] Nov, Depressive disorder, not elsewhere class ified 311 and Generalized anxiety disorder 300.[address] [address] Nov, Arthritis of both knees 716.[address] [address] Nov, PAF (paroxysmal atrial fibrillation) 427 .31 ; CAD (coronary artery disease) 414.00 ; Chest pain 786.50 and Chronic kidney disease (CKD) stage G4/A1, severely decreased glomerular filtration rate (GFR) between 15-29 mL/min/1.73 square meter and albuminuria creatinine ratio less than 30 mg/g 585.[address] [address] Oct, Coronary atherosclerosis of unspecified type of vessel, siletz tribe or graft 414.00 ; Chronic kidney disease, Stage IV (severe) 585.4 ; Hypertension 401.9 and Edema 782.3 [facility] [address] [address] Oct, Depressive disorder, not elsewhere class ified 311 and Generalized anxiety disorder 300.02 [facility] [address] [address] Oct, Depressive disorder, not elsewhere class ified 311 and Generalized anxiety disorder 300.02 [facility] [address] [address] Oct, [facility] [address] [address] Oct, [address] [address] Sep, [address] [address] Sep, Chronic kidney disease, Stage IV (severe ) 585.[address] [address] Sep, [facility] [address] [place] [address] Sep, Coronary atherosclerosis of unspecified type of vessel, siletz tribe or graft 414.00 ; Hypertension 401.9 ; Edema 782.3 and Hypothyroidism 244.[address] [address] Sep, Coronary atherosclerosis of unspecified type of vessel, siletz tribe or graft 414.00 ; Hypertension 401.9 ; Fibromyalgia 729.1 ; Edema 782.3 ; Hypothyroidism 244.9 and Anemia 285.[address] [address] Sep, Anxiety disorder, unspecified 300.00 and Depressive disorder, not elsewhere classified 311 [facility] [address] [address] Sep, [facility] [address] [place] [address] 21 May, 2015 Generalized anxiety disorder 300.02 [facility] [address] [place] [id number] [place] [address] 14 Aug, 2014 Closed fracture of lateral malleolus 824 .2 [facility] [address] [place] [id number] [place] [address] 14 Jul, 2014 [facility] [address] [place] [id number] [place] [address] Jul, [facility] [address] [place] [id number] [place] [address] Jun, [facility] [address] [place] [id number] [place] [address] Jun, [facility] [address] [place] [id number] [place] [address] Jun, [facility] [address] [place] [id number] [place] [address] Jun, [facility] [address] [place] [id number] [place] [address] Jun, [facility] [address] [place] [id number] [place] [address] Jun, [facility] [address] [place] [id number] [place] [address] May, [facility] [address] [place] [id number] [place] [address] May, [facility] [address] [place] [id number] [place] [address] 18 May, 2014 [facility] [address] [id number] [place] [address] 18 May, 2014 [facility] [address] [place] [id number] [place] [address] 16 May, 2014 [facility] [address] [place] [id number] [place] [address] 16 May, 2014 [facility] [address] [place] [id number] [place] [address] 13 May, 2014 [facility] [address] [id number] [place] [address] 13 May, 2014 [facility] [address] [id number] [place] [address] 10 May, 2014 [facility] [address] [id number] [place] [address] 10 May, 2014 [facility] [address] [id number] [place] [address] Apr, [facility] [address] [facility] [id number] [place] [address] Apr, [facility] [address] [id number] [place] [address] Mar, [facility] [address] [id number] [place] [address] Mar, [facility] [address] [id number] [place] [address] Mar, [facility] [address] [id number] [place] [address] Mar, [facility] [address] [id number] [place] [address] Mar, [facility] [address] [id number] [place] [address] Mar, [facility] [address] [id number] [place] [address] Mar, [facility] [address] [id number] [place] [address] Feb, [facility] [address] [id number] [place] [address] Feb, [facility] [address] [id number] [place] [address] Feb, [facility] [address] [id number] [place] [address] Jan, [facility] [address] [id number] [facility] [place] [address] Jan, [facility] [address] [facility] [id number] [facility] [place] [address] Jan, [facility] [address] [facility] [id number] [facility] [place] [address] Jan, [facility] [address] [id number] [facility] [place] [address] Jan, [facility] [address] [facility] [id number] [facility] [place] [address] Jan, [facility] [address] [facility] [id number] [facility] [place] [address] Jan, [facility] [address] [facility] [id number] [place] [address] Jan, [facility] [address] [id number] [place] [address] Jan, [facility] [address] [id number] [place] [address] Jan, [facility] [address] [facility] [id number] [place] [address] Nov, [facility] [address] [id number] [place] [address] Nov, [facility] [address] [id number] [place] [address] Nov, [facility] [address] [id number] [place] [address] Oct, [facility] [address] [facility] [id number] [facility] [place] [address] Oct, [facility] [address] [id number] [place] [address] Oct, [facility] [address] [facility] [id number] [place] [address] Oct, [facility] [address] [id number] [place] [address] Oct, [facility] [address] [facility] [id number] [place] [address] Oct, [facility] [address] [facility] [id number] [place] [address] Oct, [facility] [address] [facility] [id number] [place] [address] Oct, [facility] [address] [id number] [place] [address] Oct, [facility] [address] [facility] [id number] [place] [address] Sep, [facility] [address] [facility] [id number] [place] [address] Sep, [facility] [address] [id number] [place] [address] Sep, [facility] [address] [id number] [place] [address] Sep, [facility] [address] [id number] [place] [address] Sep, [facility] [address] [id number] [place] [address] Sep, [facility] [address] [id number] [place] [address] Sep, [facility] [address] [id number] [place] [address] Sep, [facility] [address] [id number] [place] [address] Sep, [facility] [address] [id number] [place] [address] August, [facility] [address] [id number] [place] [address] August, [facility] [address] [id number] [place] [address] August, [facility] [address] [id number] [place] [address] August, [facility] [address] [facility] [id number] [place] [address] August, [facility] [address] [id number] [place] [address] August, [facility] [address] [id number] [place] [address] Jul, [facility] [address] [id number] [place] [address] Jul, [facility] [address] [facility] [id number] [place] [address] Jul, [facility] [address] [id number] [place] [address] Jul, [facility] [address] [id number] [place] [address] Jul, [facility] [address] [id number] [place] [address] Jul, [facility] [address] [id number] [place] [address] Jun, [facility] [address] [id number] [place] [address] Jun, [facility] [address] [id number] [place] [address] May, [facility] [address] [id number] [place] [address] May, [facility] [address] [id number] [place] [address] May, [facility] [address] [id number] [place] [address] May, [facility] [address] [id number] [place] [address] Apr, [facility] [address] [id number] [place] [address] Apr, [facility] [address] [id number] [place] [address] 18 Mar, 2012 [facility] [address] [id number] [place] [address] 18 Mar, 2013 [facility] [address] [id number] [place] [address] 17 Mar, 2013 [facility] [address] [id number] [place] [address] 17 Mar, 2013 [facility] [address] [id number] [place] [address] 05 Mar, 2013 [facility] [address] [id number] [place] [address] 05 Mar, 2013 [facility] [address] [id number] [place] [address] Feb, [facility] [id number] [place] [address] Feb, [facility] [id number] [place] [address] Feb, [facility] [address] [id number] [place] [address] 14 Feb, 2013 [facility] [id number] [place] [address] Feb, [facility] [address] [id number] [place] [address] Feb, [facility] [address] [id number] [place] [address] 24 Jan, 2013 [facility] [address] [id number] [place] [address] 24 Jan, 2013 [facility] [id number] [place] [address] 10 Jan, 2013 [facility] [address] [id number] [place], [place] [address] 10 Jan, 2013 [facility] [address] [id number] [place] [address] 08 Jan, 2013 [facility] [address] [id number] [place] [address] Jan, [facility] [address] [id number] [place] [address] Dec, [facility] [address] [id number] [place] [address] Dec, [facility] [address] [id number] [place] [address] Nov, [facility] [address] [id number] [place] [address] Nov, [facility] [address] [id number] [place] [address] Oct, [facility] [address] [id number] [place] [address] Oct, [facility] [address] [id number] [place] [address] Oct, [facility] [address] [id number] [place] [address] Oct, [facility] [address] [id number] [place] [address] Oct, [facility] [address] [id number] [place] [address] Oct, [facility] [address] [id number] [place] [address] Sep, [facility] [address] [id number] [place] [address] Sep, [facility] [address] [id number] [place] [address] Sep, [facility] [address] [id number] [place] [address] Sep, [facility] [address] [id number] [place] [address] August, [facility] [address] [id number] [place] [address] August, [facility] [address] [id number] [place] [address] August, [facility] [address] [id number] [place] [address] August, [facility] [address] [id number] [place] [address] August, [facility] [address] [id number] [place] [address] Jul, [facility] [address] [id number] [place] [address] Jul, [facility] [address] [id number] [place] [address] Jul, [facility] [address] [id number] [place] [address] Jul, [facility] [address] [id number] [place] [address] Jul, [facility] [address] [id number] [place] [address] Jul, [facility] [address] [id number] [place] [address] Jul, [facility] [address] [id number] [place] [address] Jul, [facility] [address] [id number] [place] [address] Jul, [facility] [address] [id number] [place] [address] Jul, [facility] [address] [place] [id number] Jun, [facility] [address] [id number] [place] [address] Jun, [facility] [address] [id number] [place] [address] Jun, [facility] [address] [id number] [place] [address] Jun, [facility] [address] [id number] [place] [address] Jun, [facility] [address] [id number] [place] [address] May, [facility] [address] [id number] [place] [address] May, [facility] [address] [id number] [place] [address] May, [facility] [address] [id number] [place] [address] Apr, [facility] [address] [id number] [place] [address] Apr, [facility] [address] [id number] [place] [address] Apr, [facility] [address] [id number] [place] [address] Apr, [facility] [address] [id number] [place] [address] Apr, [facility] [address] [id number] [place] [address] Apr, [facility] [address] [id number] [place] [address] Mar, [facility] [address] [id number] [place] [address] Mar, [facility] [address] [id number] [place] [address] Mar, [facility] [id number] [place] [address] Mar, [facility] [address] [id number] [place] [address] Feb, [facility] [address] [id number] [place] [address] Feb, [facility] [address] [id number] [place] [address] Feb, [facility] [address] [id number] [place] [address] Feb, [facility] [address] [id number] [place] [address] Feb, [facility] [id number] [place] [address] Feb, [facility] [address] [id number] [place] [address] Feb, [facility] [address] [id number] [place] [address] Feb, [facility] [address] [id number] [place] [address] Feb, [facility] [id number] [place] [address] Feb, [facility] [address] [id number] [place] [address] Feb, [facility] [address] [id number] [place] [address] Feb, [facility] [id number] [place] [address] Feb, [facility] [id number] [place] [address] Feb, [facility] [address] [id number] [place] [address] Feb, [facility] [address] [id number] [place] [address] Feb, [facility] [id number] [place] [address] Jan, [facility] [address] [id number] [place] [address] Jan, [facility] [address] [id number] [place] [address] 31 Jan, 2012 [facility] [address] [facility] [id number] [place] [address] 31 Jan, 2011 [facility] [address] [facility] [id number] [place] [address] 30 Jan, 2012 [facility] [address] [id number] [place] [address] Jan, [facility] [address] [id number] [place] [address] 25 Jan, 2012 [facility] [address] [facility] [id number] [place] [address] 16 Jan, 2012 [facility] [address] [id number] [place] [address] 16 Jan, 2012 [facility] [address] [id number] [place] [address] 15 Jan, 2012 [facility] [address] [id number] [place] [address] 15 Jan, 2012 [facility] [address] [id number] [place] [address] Jan, [facility] [address] [id number] [place] [address] 26 Sep, 2011 [facility] [address] [id number] [place] [address] 26 Sep, 2011 [facility] [address] [id number] [place] [address] 24 Sep, 2011 [facility] [address] [id number] [place] [address] 23 Sep, 2011 [facility] [address] [facility] [id number] [place] [address] 22 Sep, 2011 [facility] [address] [id number] [place] [address] 21 Sep, 2011 [facility] [address] [id number] [place] [address] 20 Sep, 2011 [facility] [address] [id number] [place] [address] 20 Dec, 2011 [facility] [address] [id number] [facility] [address] 07 Dec, 2011 [facility] [address] [id number] [place] [address] 06 Dec, 2011 [facility] [address] [id number] [place] [address] 06 Dec, 2011 [facility] [address] [id number] [place] [address] 05 Dec, 2011 [facility] [address] [id number] [place] [address] Nov, [facility] [address] [id number] [place] [address] Nov, [facility] [address] [id number] [place] [address] Nov, [facility] [address] [id number] [place] [address] Nov, [facility] [address] [id number] [place] [address] Nov, [facility] [address] [id number] [place] [address] Nov, [facility] [address] [id number] [place] [address] Nov, [facility] [address] [id number] [place] [address] Nov, [facility] [address] [id number] [place] [address] Oct, [facility] [address] [id number] [place] [address] Oct, [facility] [address] [id number] [place] [address] Oct, [facility] [address] [id number] [place] [address] Oct, [facility] [address] [id number] [place] [address] Oct, [facility] [address] [id number] [place] [address] Oct, [facility] [address] [id number] [place] [address] Oct, [facility] [address] [id number] [place] [address] Sep, [facility] [address] [id number] [place] [address] Sep, [facility] [address] [id number] [place] [address] August, [facility] [address] [id number] [place] [address] August, [facility] [address] [id number] [place] [address] August, [facility] [address] [id number] [place] [address] August, [facility] [address] [id number] [place] [address] Jul, [facility] [address] [id number] [place] [address] Jul, [facility] [address] [id number] [place] [address] Jul, [facility] [address] [id number] [place] [address] Jul, [facility] [address] [id number] [place] [address] Jul, [facility] [address] [id number] [place] [address] Jul, [facility] [address] [id number] [place] [address] Jul, [facility] [address] [id number] [place] [address] Jul, [facility] [address] [id number] [place] [address] Jul, [facility] [address] [id number] [place] [address] 23 Jun, 2011 [facility] [address] [id number] [place] [address] 19 Jun, 2011 [facility] [address] [id number] [place] [address] 15 Jun, 2011 [facility] [address] [id number] [place] [address] 14 Jun, 2011 [facility] [address] [id number] [place] [address] 12 Jun, 2011 [facility] [address] [id number] [place] [address] Jun, [facility] [address] [id number] [place] [address] Jun, [facility] [address] [id number] [place] [address] May, [facility] [address] [id number] [place] [address] 24 May, 2011 [facility] [address] [id number] [place] [address] 16 May, 2011 [facility] [address] [id number] [place] [address] 16 May, 2011 [facility] [address] [id number] [place] [address] May, [facility] [address] [id number] [place] [address] Apr, [facility] [address] [id number] [place] [address] Apr, [facility] [address] [id number] [place] [address] Apr, [facility] [address] [id number] [place] [address] Apr, [facility] [address] [id number] [place] [address] Apr, [facility] [address] [id number] [place] [address] Mar, [facility] [address] [id number] [place] [address] Mar, [facility] [address] [id number] [place] [address] Mar, [facility] [address] [id number] [place] [address] Mar, [facility] [address] [id number] [place] [address] Mar, [facility] [address] [id number] [place] [address] Mar, [facility] [address] [id number] [place] [address] Mar, [facility] [address] [id number] [place] [address] Feb, [facility] [address] [id number] [place] [address] Feb, [facility] [address] [id number] [place] [address] Feb, [facility] [address] [id number] [place] [address] Feb, [facility] [address] [id number] [place] [address] Jan, [facility] [address] [id number] [place] [address] Jan, [facility] [address] [id number] [place] [address] Jan, [facility] [address] [id number] [place] [address] Jan, [facility] [id number] [place] [address] Nov, [facility] [id number] [place] [address] Mar, [facility] [id number] [place] [address] Mar, [facility] [id number] [place] [address] Mar, [facility] [id number] [place] [address] Mar, [facility] [address] [address] Mar, [facility] [id number] [place] [address] Mar, [facility] [id number] [place] [address] Feb, [facility] [id number] [place] [address] Feb, [facility] [id number] [place] [address] Jan, [facility] [id number] [place] [address] Jan, [facility] [id number] [place] [address] Jan, IMMUNIZATIONS No Known Immunizations SOCIAL HISTORY Never Assessed REASON FOR VISIT PLAN OF CARE VITAL SIGNS MEDICATIONS Unknown Medications RESULTS No Results PROCEDURES Procedure Date Ordered Result Body Site COMPLETE CBC W/AUTO DIFF WBC July 21, 2013 IRON BINDING TEST July 21, 2013 ASSAY OF IRON July 21, 2013 ASSAY OF FERRITIN July 21, 2013 MICROSCOPIC EXAM OF URINE July 21, 2013 RENAL FUNCTION PANEL July 21, 2013 ASSAY OF VITAMIN D July 21, 2013 INSTRUCTIONS MEDICATIONS ADMINISTERED No Known Medications MEDICAL [...] History CPAP Noncompliance_ Dr. Madden advises a gains driving. Medical History Bacterial meningitis 12/2016 Medical [...] Surgical History Bladder surgery [facility] 03/2016 Surgical History Neurotransmitter placed 10/2017 Surgical [...]
--- OUTSIDE RECORDS SUMMARY | 2019-08-01 10:01 | XMS REPORT ---
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 Name Role Phone Migration, Doctor Unavailable Unavailable PROBLEMS Type Condition ICD9-CM Code [id number] Code Onset Dates Condition S tatus SNOMED Code Problem Generalized anxiety disorder F41.1 A ctive 26846190 Problem Low back pain M54.5 Active 453215 009 Problem Insomnia G47.00 Active 414743545 Problem Hypothyroid E03.9 Active 98398398 Problem Palpitations R00.2 Active 2625968 2 Problem Asthma J45.909 Active 861620264 Problem Mixed stress and urge urinary incontinence N39.46 Active 203541543 Problem Fibromyalgia M79.7 Active 3356849 05 Problem Stage 3 chronic kidney disease N18.3 Active 527572834 Problem Body mass index (BMI) of 40.0-44.9 in adult Z68.41 Active 038549720 Problem Seasonal allergic rhinitis due to pollen J30.1 Active 73797475 Problem 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 Active 0880581951907 Problem Primary osteoarthritis of left knee M17.12 Active 902817172 Problem Hypercholesterolemia E78.00 Active 00946315 Problem Essential (primary) hypertension I10 Active 74557509 Problem Restless leg syndrome G25.81 Active 57643798 Problem Chronic pain syndrome G89.4 Active 369324440 Problem Perimenopausal vasomotor symptoms N95.1 Active 966370564 Problem Major depressive disorder, recurrent, moderate F33 .1 Active 895143043 ALLERGIES No Information ENCOUNTERS Encounter Location Date Diagnosis [facility] [address] [facility] [id number] [place] [address] Jun, [facility] [address] [facility] [id number] [address] [place] [address] May, Chronic pain syndrome G89.4 [facility] [address] [id number] [place] [address] May, Generalized anxiety disorder F41.1 and M zion depressive disorder, recurrent episode with anxious distress F33.9 [place] [address] [address] Apr, Major depressive disorder, recurrent, mo derate F33.1 ; Generalized anxiety disorder F41.1 and Dysthymic disorder F34.1 [place] [address] [address] Apr, Chronic pain syndrome G89.4 [place] [address] [address] Apr, Acute pain of right knee M25.561 [place] [address] [address] Apr, [place] [address] [address] Mar, Major depressive disorder, recurrent, mo derate F33.1 ; Generalized anxiety disorder F41.1 and Dysthymic disorder F34.1 [facility] [address] [facility] [id number] [address] [place] [address] Mar, Fluid collection of middle e ar H65.90 and Dizziness R42 [place] [address] [address] Mar, [place] [address] [address] Mar, [place] [address] [address] Mar, Essential (primary) hypertension I10 ; S tage 3 chronic kidney disease N18.3 ; Hypercholesterolemia E78.00 ; Asthma J45.909 ; Recurrent UTI N39.0 ; Status post shoulder surgery Z98.890 and Encounter for immunization Z23 [place] [address] [address] Mar, Chronic pain syndrome G89.4 [place] [address] [address] Feb, [facility] [address] [address] Feb, [facility] [address] [address] Feb, Oral thrush B37.0 and Sore throat J02.9 [place] [address] [address] Feb, Chronic pain syndrome G89.4 [facility] [address] [address] Jan, [place] [address] [address] Jan, Chronic pain syndrome G89.4 [place] [address] [address] Jan, Hypercholesterolemia E78.00 [place] [address] [address] Jan, [place] [address] [address] Dec, Chronic kidney disease, stage 4 (severe) N18.4 [place] [address] [address] Dec, Major depressive disorder, recurrent, mo derate F33.1 ; Generalized anxiety disorder F41.1 and Dysthymic disorder F34.1 [place] [address] [address] Dec, Generalized anxiety disorder F41.1 and M ajor depressive disorder, recurrent episode with anxious distress F33.9 [place] [address] [address] Dec, [place] [address] [address] Dec, [place] [address] [address] Dec, Encounter for immunization Z23 [place] [address] [address] Dec, Diarrhea, unspecified type R19.7 and Hem orrhoids, unspecified hemorrhoid type K64.9 [place] [address] [address] Dec, Encounter for Medicare annual wellness e xam Z00.00 ; Chronic kidney disease, stage 4 (severe) N18.4 ; Encounter for immunization Z23 ; Major depressive disorder, recurrent, moderate F33.1 ; Atherosclerosis of [place] coronary artery of [place] heart with angina pectoris I25.119 ; Asthma J45.909 ; Hypothyroid E03.9 and Fibromyalgia M79.7 [place] [address] [address] Dec, Chronic pain syndrome G89.4 [place] [address] [address] Nov, Major depressive disorder, recurrent, mo derate F33.1 ; Generalized anxiety disorder F41.1 and Dysthymic disorder F34.1 [place] [address] [address] Nov, [place] [address] [address] Nov, Chronic pain syndrome G89.4 [place] [address] [address] Nov, Restless leg syndrome G25.81 [place] [address] [address] Nov, Pain in right shoulder M25.511 ; Restles s leg syndrome G25.81 ; Other chronic pain G89.29 ; Screening for breast cancer Z12.39 ; Insomnia G47.00 and Morbid obesity E66.01 [place] [address] [address] Nov, [place] [address] [address] Oct, Major depressive disorder, recurrent, mo derate F33.1 ; Generalized anxiety disorder F41.1 and Dysthymic disorder F34.1 [facility] [address] [address] Oct, [facility] [address] [address] Oct, Cellulitis of left lower extremity L03.1 16 and Morbid obesity E66.01 [facility] [address] [place] [id number] [place] [address] Oct, [facility] [address] [address] Oct, [facility] [address] [address] Oct, Generalized anxiety disorder F41.1 and M shiraor depressive disorder, recurrent episode with anxious distress F33.9 [facility] IN [facility] [address] [place] [id number] [address] [place] [address] Oct, [facility] [address] [address] Oct, Chronic pain syndrome G89.4 [facility] [address] [address] Oct, Chronic pain syndrome G89.4 [facility] IN [facility] [address] [place] [id number] [address] [place] [address] Oct, UTI symptoms R39.9 ; Acute c ystitis without hematuria N30.00 and Morbid obesity E66.01 [facility] [address] [address] Oct, [facility] [address] [address] Oct, Chronic pain syndrome G89.4 [facility] [address] [address] Sep, [place] [address] [address] Sep, Generalized anxiety disorder F41.1 and M shiraor depressive disorder, recurrent episode with anxious distress F33.9 [place] [address] [address] 17 Sep, 2018 Chronic kidney disease, stage 4 (severe) N18.4 [facility] [address] [address] Sep, Fibromyalgia M79.7 and Chronic pain synd lisseth G89.4 [place] [address] [address] Sep, [address] [place] [address] Sep, Chronic pain syndrome G89.4 [place] [address] [address] Sep, [place] [address] [address] Sep, Chronic pain syndrome G89.4 ; Fibromyalg ia M79.7 and Morbid obesity E66.01 [place] [address] [address] August, Generalized anxiety disorder F41.1 and Tae zion depressive disorder, recurrent episode with anxious distress F33.9 [place] [address] [address] August, Fibromyalgia M79.7 [place] [address] [address] August, Restless leg syndrome G25.81 ; Vitamin D deficiency E55.9 ; Urinary tract infection without hematuria, site unspecified N39.0 ; Pain in right shoulder M25.511 ; Other chronic pain G89.29 ; Biceps tendinitis on right M75.21 and Morbid obesity E66.01 [place] [address] [address] Jul, Urinary tract infection without hematuri a, site unspecified N39.0 and Morbid obesity E66.01 [place] [address] [address] Jul, [place] [address] [address] Jul, [place] [address] [address] Jul, Fibromyalgia M79.7 [place] [address] [address] Jul, Acute pain of right shoulder M25.511 [place] [address] [address] Jul, Acute pain of right shoulder M25.511 and Morbid obesity E66.01 [place] [address] [address] Jun, [place] [address] [address] Jun, Generalized anxiety disorder F41.1 and M ajor depressive disorder, recurrent episode with anxious distress F33.9 [place] [address] [address] Jun, [place] [address] [address] Jun, Fibromyalgia M79.7 [facility] [address] [facility] [id number] [place] [address] Jun, Acute pain of right shoulder M25.511 ; Acute pain of right hip M25.551 and Morbid obesity E66.01 [place] [address] [address] May, Burning with urination R30.0 ; Vaginal d ischarge N89.8 ; Chronic kidney disease, stage 4 (severe) N18.4 ; Body mass index (BMI) of 40.0-44.9 in adult Z68.41 and Morbid obesity E66.01 [facility] [address] [address] 07 May, 2018 Fibromyalgia M79.7 [facility] [address] [address] 06 May, 2018 Generalized anxiety disorder F41.1 and M zion depressive disorder, recurrent episode with anxious distress F33.9 [facility] [address] [address] Apr, [facility] [address] [address] 08 Apr, 2018 Fibromyalgia M79.7 [facility] [address] [place] [id number] [place] [address] 14 Mar, 2018 Acute UTI N39.0 and Dysuria R30.0 [place] [address] [address] 10 Mar, 2018 Fibromyalgia M79.7 [facility] [address] [address] 15 Feb, 2018 [place] [address] [address] 14 Feb, 2018 [place] [address] [address] Feb, [place] [address] [address] Feb, Fibromyalgia M79.7 [facility] [address] [address] 08 Feb, 2018 Complicated UTI (urinary tract infection ) N39.0 [place] [address] [address] 07 Feb, 2018 [place] [address] [address] Jan, Generalized anxiety disorder F41.1 and M zion depressive disorder, recurrent episode with anxious distress F33.9 [facility] [address] [place] [id number] [place] [address] Jan, Acute conjunctivitis of left eye, unspecified acute conjunctivitis type H10.32 [place] [address] [address] Jan, [facility] [address] [address] Jan, Acute non-recurrent maxillary sinusitis J01.00 ; Dysuria R30.0 ; Perimenopausal vasomotor symptoms N95.1 and Fibromyalgia M79.7 [facility] [address] [address] Dec, Vitamin D deficiency E55.9 [place] [address] [address] Dec, Vitamin D deficiency E55.9 [place] [address] [address] Dec, Vitamin D deficiency E55.9 [facility] [address] [address] Dec, [place] [address] [address] Dec, Fibromyalgia M79.7 [facility] [address] [address] Nov, [place] [address] [address] Nov, [facility] [address] [address] Nov, [facility] [address] [address] Nov, Fibromyalgia M79.7 ; Vision changes H53. 9 ; Chest wall pain R07.89 and Chronic pain syndrome G89.4 [facility] [address] [address] Nov, [facility] [address] [address] Nov, Rash of hands R21 [facility] [address] [address] Nov, Generalized anxiety disorder F41.1 and Tae donovan depressive disorder, recurrent episode with anxious distress F33.9 [place] [address] [address] Nov, Fibromyalgia M79.7 [facility] [address] [address] Nov, Complicated UTI (urinary tract infection ) N39.0 [place] [address] [address] Oct, [place] [address] [address] Oct, Generalized anxiety disorder F41.1 and Tae donovan depressive disorder, recurrent episode with anxious distress F33.9 [place] [address] [address] Oct, [place] [address] [address] Oct, Fibromyalgia M79.7 [place] [address] [address] Sep, Restless leg syndrome G25.81 and Restles s leg G25.81 [place] [address] [address] Sep, [place] [address] [address] Sep, Seasonal allergic rhinitis due to pollen J30.1 ; Screening for breast cancer Z12.31 ; Chest pain at rest R07.9 ; Restless leg syndrome G25.81 ; Essential (primary) hypertension I10 and Depressed F32.9 [facility] [address] [address] August, Fibromyalgia M79.7 [place] [address] [address] August, [facility] [address] [address] August, [facility] [address] [address] August, Abnormal chest CT R93.8 [facility] [address] [address] August, Generalized anxiety disorder F41.1 and Tae donovan depressive disorder, recurrent episode with anxious distress F33.9 [facility] [address] [address] August, Abnormal chest CT R93.8 [place] [address] [address] Jul, [place] [address] [address] Jul, Chronic kidney disease, stage 4 (severe) N18.4 [place] [address] [address] Jul, [place] [address] [address] Jul, Restless leg G25.81 ; Mixed stress and u rge urinary incontinence N39.46 and Fibromyalgia M79.7 [place] [address] [address] Jul, Chronic kidney disease, stage 4 (severe) N18.4 [place] [address] [address] Jun, Orthostatic hypotension I95.1 ; Chronic kidney disease, stage 4 (severe) N18.4 ; Chest wall discomfort R07.89 and Body mass index (BMI) of 40.0- 44.9 in adult Z68.41 [place] [address] [address] Jun, [place] [address] [place] [address] [place] [address] Jun, Orthostatic hypotension I95.1 [facility] [address] [address] Jun, [facility] [address] [facility] [id number] [address] [place] [address] Jun, Orthostatic hypotension I95. 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.3 [facility] [address] [address] May, Chronic kidney disease, stage 4 (severe) N18.4 [facility] [address] [address] May, Chronic kidney disease, stage 4 (severe) N18.4 [facility] [address] [address] May, Abnormal chest [address] R93.8 [facility] [address] [address] May, [facility] [address] [place] [address] May, [facility] [address] [address] May, Generalized anxiety disorder F41.1 and Tae zion depressive disorder, recurrent episode with anxious distress F33.9 [facility] [address] [place] [id number] [place] [address] May, Mood disorder F39 [facility] [address] [address] Apr, [facility] [address] [address] Apr, Infected skin lesion L08.[address] rain of right shoulder region, initial encounter S46.911A [facility] [address] [address] Apr, Generalized anxiety disorder F41.1 and Tae donovan depressive disorder, recurrent episode with anxious distress F33.9 [facility] [address] [place] [id number] [place] [address] Apr, [facility] [address] [address] Apr, Recent urinary tract infection Z87.440 a nd Hypothyroid E03.9 [facility] [address] [address] Apr, Generalized anxiety disorder F41.1 and Tae donovan depressive disorder, recurrent episode with anxious distress F33.9 [facility] [address] [place] [id number] [place] [address] Apr, Recent urinary tract infection Z87.440 [facility] [address] [place] [id number] [place] [address] Mar, [facility] [address] [facility] [id number] [address] [place] [address] Mar, Dysuria R30.0 ; Acute cystit is without hematuria N30.00 and BMI 40.0-44.9, adult Z68.41 [place] [address] [address] 14 Mar, 2017 [place] [address] [address] Mar, [place] [address] [address] Mar, Generalized anxiety disorder F41.1 and Tae donovan depressive disorder, recurrent episode with anxious distress F33.9 [place] [address] [address] Feb, Conjunctivitis, bacterial H10.9 [place] [address] [address] Feb, [facility] [address] [place] [address] Feb, Conjunctivitis, bacterial H1 0.9 [place] [address] [address] Feb, [facility] [address] [address] Feb, Dysuria R30.0 ; Acute cystit is N30.00 and BMI 40.0-44.9, adult Z68.41 [place] [address] [address] Feb, [place] [address] [address] Feb, Generalized anxiety disorder F41.1 and Tae donovan depressive disorder, recurrent episode with anxious distress F33.9 [place] [address] [address] Feb, Mood disorder F39 and BMI 40.0-44.9, feli lt Z68.41 [place] [address] [address] Jan, [place] [address] [address] Jan, [place] [address] [address] Jan, Hypothyroid E03.9 [place] [address] [address] Jan, [place] [address] [address] Jan, Chronic kidney disease, unspecified N18. 9 ; Hypokalemia E87.6 ; Essential (primary) hypertension I10 ; Fibromyalgia M79.7 ; Coronary artery disease involving [place] coronary artery of [place] heart, angina presence unspecified I25.10 ; Hypothyroid E03.9 and Encounter for immunization Z23 [place] [address] [address] Jan, Hypothyroid E03.9 [place] [address] [address] Jan, [place] [address] [address] Dec, Vitamin D deficiency E55.9 [place] [address] [address] Dec, Primary osteoarthritis of left knee M17. 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 [place] [address] [address] 19 Dec, 2016 Fibromyalgia M79.7 [place] [address] [address] 18 Dec, 2016 Mood disorder F39 [place] [address] [address] Dec, [place] [address] [address] 13 Dec, 2016 Generalized anxiety disorder F41.1 and M ajor depressive disorder, recurrent episode with anxious distress F33.9 [place] [address] [address] 11 Dec, 2016 [facility] [address] [place] [id number] [place] [address] 08 Dec, 2016 Streptococcal meningitis G00.2 [facility] [address] [address] 07 Dec, 2016 Streptococcal meningitis G00.2 [facility] [address] [id number] [place] [address] 07 Dec, 2016 [facility] [address] [address] 06 Dec, 2016 Streptococcal meningitis G00.2 [facility] [address] [address] Dec, 2016 [facility] [address] [place] [id number] [place] [address] Dec, Major depressive disorder, recurrent epi sode with anxious distress F33.9 [facility] [address] [place] [id number] [place] [address] Nov, Fever, unspecified fever cause R50.9 [facility] [address] [address] [id number] [place] [address] Nov, [facility] [address] [address] Nov, Hypothyroid E03.9 [facility] [address] [id number] [place] [address] Nov, Generalized anxiety disorder F41.1 and Tae donovan depressive disorder, recurrent episode with anxious distress F33.9 [facility] [address] [id number] [place] [address] Nov, [facility] [address] [facility] [place] [id number] Oct, Dental examination Z01.20 [facility] [address] [id number] [place] [address] Oct, Generalized anxiety disorder F41.1 and M shiraor depressive disorder, recurrent episode with anxious distress F33.9 [place] [address] [address] Oct, Chronic kidney disease, stage 4 (severe) N18.4 [place] [address] [address] Oct, [place] [address] [address] Oct, Fibromyalgia M79.7 [place] [address] [address] Oct, [place] [address] [address] Oct, Generalized anxiety disorder F41.1 ; Fady or depressive disorder, recurrent episode with anxious distress F33.9 and Bipolar disorder, current episode manic without psychotic features F31.10 [place] [address] [address] Sep, [place] [address] [address] Sep, [place] [address] [address] Sep, Vitamin D deficiency E55.9 [place] [address] [address] Sep, Vitamin D deficiency E55.9 [place] [address] [address] Sep, [place] [address] [address] Sep, Chronic kidney disease, stage 4 (severe) N18.4 ; Hypothyroid E03.9 ; Restless leg G25.81 ; Fibromyalgia M79.7 ; Essential (primary) hypertension I10 ; Vitamin D deficiency E55.9 ; Dyspepsia R10.13 ; Anemia in chronic kidney disease D63.1 ; Chronic kidney disease, unspecified N18.9 ; Coronary artery disease involving [place] coronary artery of [place] heart, angina presence unspecified I25.10 ; Screening breast examination Z12.39 and Low back pain M54.5 [place] [address] [address] August, Generalized anxiety disorder F41.1 and Tae donovan depressive disorder, recurrent episode with anxious distress F33.9 [place] [address] [address] August, Generalized anxiety disorder F41.1 and Tae donovan depressive disorder, recurrent episode with anxious distress F33.9 [place] [place] [address] [address] August, Fibromyalgia M79.7 [place] [address] [address] Jul, Generalized anxiety disorder F41.1 and Tae donovan depressive disorder, recurrent episode with anxious distress F33.9 [place] [address] [address] Jul, Fibromyalgia M79.7 [place] [address] [address] Jul, Generalized anxiety disorder F41.1 [place] [address] [address] May, [place] [address] [address] May, Hypothyroid E03.9 [place] [address] [address] May, Chronic kidney disease, stage 4 (severe) N18.4 ; Hypothyroid E03.9 ; Restless leg G25.81 ; Fibromyalgia M79.7 ; Essential (primary) hypertension I10 ; Vitamin D deficiency E55.9 ; Dyspepsia R10.13 ; Acute non-recurrent maxillary sinusitis J01.00 ; Anemia in chronic kidney disease D63.1 ; Chronic kidney disease, unspecified N18.9 and Coronary artery disease involving s[place] coronary artery of [place] heart, angina presence unspecified I25.10 [place] [address] [address] 02 May, 2016 Vitamin D deficiency, unspecified E55.9 [facility] [address] [address] May, Generalized anxiety disorder F41.1 and M ajor depressive disorder, recurrent episode with anxious distress F33.9 [place] [address] [address] Apr, Pain in right knee M25.561 and Pain in l eft knee M25.562 [place] [address] [address] Apr, [place] [address] [address] Apr, [place] [address] [address] Apr, [place] [address] [address] Mar, Generalized anxiety disorder F41.1 and M ajor depressive disorder, recurrent episode with anxious distress F33.9 [place] [address] [address] Mar, Generalized anxiety disorder F41.1 and M ajor depressive disorder, recurrent episode with anxious distress F33.9 [place] [address] [address] Mar, [place] [address] [address] Mar, [facility] [address] [address] Mar, [place] [address] [address] Mar, Asthma J45.909 and Fibromyalgia M79.7 [place] [address] [address] Mar, Chronic kidney disease, stage 4 (severe) N18.4 ; Vitamin D deficiency E55.9 and Essential (primary) hypertension I10 [place] [address] [address] Feb, [place] [address] [address] Feb, Dysuria R30.0 ; Mixed stress and urge ur inary incontinence N39.46 ; Fibromyalgia M79.7 and Chronic kidney disease, stage IV (severe) N18.4 [place] [address] [address] Feb, Chronic kidney disease, stage 4 (severe) N18.4 [place] [address] [address] Feb, Chronic kidney disease, stage 4 (severe) N18.4 [place] [address] [address] Feb, [place] [address] [address] Feb, Vitamin D deficiency, unspecified E55.9 [place] [address] [address] Jan, [place] [address] [address] Jan, [place] [address] [address] Dec, [place] [address] [address] Dec, Chronic kidney disease, stage 4 (severe) N18.4 [place] [address] [address] Dec, Dysthymic disorder F34.1 and Generalized anxiety disorder F41.1 [place] [address] [address] Dec, [place] [address] [address] Dec, [place] [address] [address] Dec, Dysthymic disorder F34.1 and Generalized anxiety disorder F41.1 [place] [address] [address] Dec, Dysuria R30.0 ; Chronic kidney disease, stage 4 (severe) N18.4 ; Hypertension I10 ; Dyspepsia R10.13 ; Yeast dermatitis B37.2 ; Palpitations R00.2 ; Hypothyroid E03.9 ; Functional diarrhea K59.1 and Other seasonal allergic rhinitis J30.2 [facility] [address] [place] [address] Dec, [facility] [place] [address] [address] Nov, Dysuria R30.0 and Stress inc ontinence N39.3 [place] [address] [address] Nov, [place] [address] [address] Nov, [place] [address] [address] Nov, Osteoarthritis of knees, bilateral M17.0 [place] [address] [address] Nov, Dysthymic disorder F34.1 and Generalized anxiety disorder F41.1 [place] [address] [address] Nov, [place] [address] [address] Nov, [place] [address] [address] Nov, Urgency of urination R39.15 [place] [address] [address] Nov, [place] [address] [address] Nov, Chronic kidney disease, stage 4 (severe) N18.4 [place] [address] [address] Oct, Hypertension I10 ; Coronary artery disea se involving s[place] coronary artery of [place] heart, angina presence unspecified I25.10 ; Palpitations R00.2 ; Hypothyroid E03.9 ; Right foot pain M79.671 ; Functional diarrhea K59.1 and Other seasonal allergic rhinitis J30.2 [place] [address] [address] Oct, Dysthymic disorder F34.1 and Generalized anxiety disorder F41.1 [place] [address] [address] Sep, [place] [address] [address] Sep, [place] [address] [address] Sep, [place] [address] [address] Sep, [place] [address] [address] Sep, [place] [address] [address] Sep, Dysthymic disorder F34.1 and Generalized anxiety disorder F41.1 [place] [address] [address] 16 Sep, 2015 Asthma with acute exacerbation in adult J45.901 ; Dysuria R30.0 ; Chronic kidney disease, stage 4 (severe) N18.4 and History of anemia Z86.2 [place] [address] [address] Sep, Generalized anxiety disorder F41.1 and D ysthymic disorder F34.1 [place] [address] [address] August, Screening breast examination Z12.39 and Acute recurrent maxillary sinusitis J01.01 [place] [address] [address] August, Osteoarthritis of knees, bilateral M17.0 [place] [address] [address] August, Chronic kidney disease, stage 4 (severe) N18.4 ; Acute non-recurrent maxillary sinusitis J01.00 ; Urinary problem R39.89 ; Bowel habit changes R19.4 ; Functional diarrhea K59.1 and History of colon polyps Z86.010 [place] [address] [address] Jul, Dysthymic disorder F34.1 and Generalized anxiety disorder F41.1 [place] [address] [address] Jul, [place] [address] [address] Jul, Dysthymic disorder F34.1 ; Generalized a nxiety disorder F41.1 and 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 [place] [address] [address] Jul, [place] [address] [address] Jun, [place] [address] [address] Jun, [place] [address] [address] 17 May, 2015 [place] [address] [address] May, Dysthymic disorder F34.1 and Generalized anxiety disorder F41.1 [place] [address] [address] Apr, Kidney disease N28.9 [place] [address] [address] Apr, Generalized anxiety disorder F41.1 and D ysthymic disorder F34.1 [place] [address] [address] Apr, Chronic kidney disease, stage 4 (severe) N18.4 [place] [address] [address] Apr, Generalized anxiety disorder F41.1 ; Fady or depression, recurrent F33.9 and Sleep disturbance G47.9 [place] [address] [address] Mar, Generalized anxiety disorder F41.1 and D ysthymic disorder F34.[address] [address] Mar, Generalized anxiety disorder F41.1 ; 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 and Insomnia G47.[address] [address] Mar, [place] [address] [address] Mar, [address] [address] Mar, Osteoarthritis of knees, bilateral M17.[address] [address] Mar, Hypertension I10 ; Hypothyroid E03.9 ; D ysthymic disorder F34.1 ; Chronic kidney disease, stage 4 (severe) N18.4 and Nausea & vomiting R11.2 [place] [address] [address] Mar, Generalized anxiety disorder F41.1 ; 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 [address] [facility] [id number] [address] [place] [address] Mar, Gastroenteritis K52.9 [facility] [address] [address] Mar, [place] [address] [address] Mar, [address] [address] Feb, Dysthymic disorder F34.1 and Generalized anxiety disorder F41.[address] [address] Jan, UTI (urinary tract infection) N39.0 ; As thma J45.909 ; Coronary artery disease involving s[place] coronary artery of s[place]qualmie heart, angina presence unspecified I25.10 ; Hypertension I10 ; Hypothyroid E03.9 ; Vitamin D deficiency E55.9 ; Insomnia G47.00 ; Palpitations R00.2 ; Depressed F32.9 ; Restless leg G25.81 and Anxiety F41.[address] [address] Jan, Dysthymic disorder F34.1 and Generalized anxiety disorder F41.1 [facility] [address] [address] Jan, [address] [address] Dec, [address] [address] Dec, Alkalosis 276.3 ; Chronic kidney disease , Stage IV (severe) 585.4 ; Hyperpotassemia 276.7 ; Secondary hyperparathyroidism, renal 588.81 ; Proteinuria 791.0 ; Unspecified vitamin D deficiency 268.9 ; Anemia in chronic kidney disease 285.21 ; Other and unspecified hyperlipidemia 272.4 ; Hypertension, essential, benign 401.1 and Chronic kidney disease (CKD), stage III (moderate) 585.3 [place] [address] [address] Dec, [place] [address] [address] Dec, Depressive disorder, not elsewhere class ified 311 and Generalized anxiety disorder 300.02 [place] [address] [address] Dec, [address] [address] Dec, [address] [address] Nov, Depressive disorder, not elsewhere class ified 311 and Generalized anxiety disorder 300.[address] [address] Nov, Arthritis of both knees 716.[address] [address] Nov, PAF (paroxysmal atrial fibrillation) 427 .31 ; CAD (coronary artery disease) 414.00 ; Chest pain 786.50 and Chronic kidney disease (CKD) stage G4/A1, severely decreased glomerular filtration rate (GFR) between 15-29 mL/min/1.73 square meter and albuminuria creatinine ratio less than 30 mg/g 585.[address] [address] Oct, Coronary atherosclerosis of unspecified type of vessel, s[place]qual[place] or graft 414.00 ; Chronic kidney disease, Stage IV (severe) 585.4 ; Hypertension 401.9 and Edema 782.[address] [address] Oct, Depressive disorder, not elsewhere class ified 311 and Generalized anxiety disorder 300.02 [address] [place] [address] Oct, Depressive disorder, not elsewhere class ified 311 and Generalized anxiety disorder 300.02 [facility] [address] [address] Oct, [facility] [address] [address] Oct, [facility] [address] [address] Sep, [facility] [address] [address] Sep, Chronic kidney disease, Stage IV (severe ) 585.4 [place] [address] [address] Sep, [facility] [address] [address] Sep, Coronary atherosclerosis of unspecified type of vessel, [place] or graft 414.00 ; Hypertension 401.9 ; Edema 782.3 and Hypothyroidism 244.9 [place] [address] [address] Sep, Coronary atherosclerosis of unspecified type of vessel, s[place]qual[place] or graft 414.00 ; Hypertension 401.9 ; Fibromyalgia 729.1 ; Edema 782.3 ; Hypothyroidism 244.9 and Anemia 285.9 [place] [address] [address] Sep, Anxiety disorder, unspecified 300.00 and Depressive disorder, not elsewhere classified 311 [facility] [address] [address] Sep, [facility] [address] [address] August, Generalized anxiety disorder 300.02 [facility] [address] [address] August, Closed fracture of lateral malleolus 824 .2 [place] [address] [address] 14 Jul, 2014 [facility] [place] [facility] [address] [facility] [id number] [facility] [place] [address] 13 Jul, 2014 [facility] [place] [facility] [address] [facility] [id number] [facility] [place] [address] 21 Jun, 2014 [facility] [place] [facility] [address] [id number] [place] [address] Jun, [facility] [place] [facility] [address] [id number] [place] [address] Jun, [facility] [place] [facility] [address] [facility] [id number] [facility] [place] [address] Jun, [facility] [place] [facility] [address] [id number] [place] [address] Jun, [facility] [place] [facility] [address] [id number] [place] [address] Jun, [facility] [place] [facility] [address] [id number] [place] [address] 19 May, 2014 [facility] [place] [facility] [address] [facility] [id number] [place] [address] 19 May, 2014 [facility] [place] [facility] [address] [id number] [place] [address] 18 May, 2014 [facility] [place] [facility] [address] [id number] [place] [address] 18 May, 2014 [facility] [place] [facility] [address] [id number] [place] [address] 16 May, 2014 [facility] [place] [facility] [address] [facility] [id number] [place] [address] 16 May, 2014 [facility] [place] [facility] [address] [id number] [place] [address] 13 May, 2014 [facility] [place] [facility] [address] [id number] [place] [address] 13 May, 2014 [facility] [place] [facility] [address] [id number] [place] [address] 10 May, 2014 [facility] [place] [facility] [address] [id number] [place] [address] May, [facility] [place] [facility] [address] [id number] [place] [address] Apr, [facility] [place] [facility] [address] [id number] [place] [address] Apr, [facility] [place] [facility] [address] [id number] [place] [address] Mar, [facility] [place] [facility] [address] [id number] [place] [address] Mar, [facility] [place] [facility] [address] [id number] [place] [address] Mar, [facility] [place] [facility] [address] [id number] [place] [address] Mar, [facility] [place] [facility] [address] [id number] [place] [address] Mar, [facility] [place] [facility] [address] [id number] [place] [address] Mar, [facility] [place] [facility] [address] [id number] [place] [address] Mar, [facility] [place] [facility] [address] [id number] [place] [address] Feb, [facility] [place] [facility] [address] [id number] [place] [address] Feb, [facility] [place] [facility] [address] [id number] [place] [address] Feb, [facility] [place] [facility] [address] [id number] [place] [address] Jan, [facility] [place] [facility] [address] [id number] [place] [address] Jan, [facility] [place] [facility] [address] [id number] [place] [address] Jan, [facility] [place] [facility] [address] [id number] [place] [address] Jan, [facility] [place] [facility] [address] [facility] [id number] [facility] [place] [address] Jan, [facility] [place] [facility] [address] [facility] [id number] [place] [address] Jan, [facility] [place] [facility] [address] [facility] [id number] [facility] [place] [address] Jan, [facility] [place] [facility] [address] [facility] [id number] [place] [address] Jan, [facility] [place] [facility] [address] [facility] [id number] [place] [address] Jan, [facility] [place] [facility] [address] [facility] [id number] [place] [address] Jan, [facility] [place] [facility] [address] [id number] [facility] [place] [address] Nov, [facility] [place] [facility] [address] [id number] [place] [address] Nov, [facility] [place] [facility] [address] [facility] [id number] [facility] [place] [address] Nov, [facility] [place] [facility] [address] [id number] [facility] [place] [address] Oct, [facility] [place] [facility] [address] [id number] [place] [address] Oct, [facility] [place] [facility] [address] [id number] [place] [address] Oct, [facility] [place] [facility] [address] [facility] [id number] [facility] [place] [address] Oct, [facility] [place] [facility] [address] [facility] [id number] [place] [address] Oct, [facility] [place] [facility] [address] [facility] [id number] [facility] [place] [address] Oct, 2013 [facility] [place] [facility] [address] [id number] [place] [address] Oct, 2013 [facility] [place] [facility] [address] [facility] [id number] [place] [address] Oct, [facility] [place] [facility] [address] [facility] [id number] [place] [address] Oct, [facility] [place] [facility] [address] [facility] [id number] [place] [address] Sep, [facility] [place] [facility] [address] [id number] [place] [address] Sep, [facility] [place] [facility] [address] [facility] [id number] [place] [address] Sep, [facility] [place] [facility] [address] [id number] [place] [address] Sep, [facility] [place] [facility] [address] [id number] [place] [address] Sep, [facility] [place] [facility] [address] [id number] [place] [address] Sep, [facility] [place] [facility] [address] [id number] [place] [address] Sep, [facility] [place] [facility] [address] [id number] [place] [address] Sep, [facility] [place] [facility] [address] [id number] [place] [address] Sep, [facility] [place] [facility] [address] [id number] [place] [address] August, [facility] [place] [facility] [address] [id number] [place] [address] August, [facility] [place] [facility] [address] [id number] [place] [address] August, [facility] [place] [facility] [address] [id number] [place] [address] August, [facility] [place] [facility] [address] [id number] [place] [address] August, [facility] [place] [facility] [address] [id number] [place] [address] August, [facility] [place] [facility] [address] [id number] [place] [address] Jul, [facility] [place] [facility] [address] [id number] [place] [address] Jul, [facility] [place] [facility] [address] [id number] [place] [address] Jul, [facility] [place] [facility] [address] [id number] [place] [address] Jul, [facility] [place] [facility] [address] [id number] [place] [address] Jul, [facility] [place] [facility] [address] [id number] [place] [address] Jul, [facility] [place] [facility] [address] [id number] [place] [address] Jun, [facility] [place] [facility] [address] [id number] [place] [address] Jun, [facility] [place] [facility] [address] [id number] [place] [address] May, [facility] [place] [facility] [address] [id number] [place] [address] May, [facility] [place] [facility] [address] [id number] [place] [address] May, [facility] [place] [facility] [address] [id number] [place] [address] May, [facility] [place] [facility] [address] [id number] [place] [address] Apr, [facility] [place] [facility] [address] [id number] [place] [address] Apr, [facility] [place] [facility] [address] [id number] [place] [address] Mar, [facility] [address] [id number] [place] [address] Mar, [facility] [address] [id number] [place] [address] Mar, [facility] [address] [id number] [place] [address] Mar, [facility] [address] [id number] [place] [address] Mar, [facility] [address] [id number] [place] [address] Mar, [facility] [address] [id number] [place] [address] Feb, [facility] [address] [id number] [place] [address] Feb, [facility] [id number] [place] [address] Feb, [facility] [id number] [place] [address] Feb, [facility] [id number] [place] [address] Feb, [facility] [address] [id number] [place] [address] Feb, [facility] [id number] [place] [address] Jan, [facility] [address] [id number] [place] [address] Jan, [facility] [address] [id number] [place] [address] Jan, [facility] [address] [id number] [place] [address] 10 Jan, 2013 [facility] [id number] [place] [address] 08 Jan, 2013 [facility] [address] [id number] [place] [address] Jan, [facility] [address] [id number] [place] [address] Dec, [facility] [id number] [place] [address] Dec, [facility] [address] [id number] [place] [address] Nov, [facility] [address] [id number] [place] [address] Nov, [facility] [address] [id number] [place] [address] Oct, [facility] [address] [id number] [place] [address] Oct, [facility] [address] [id number] [place] [address] Oct, [facility] [address] [id number] [place] [address] Oct, [facility] [address] [id number] [place] [address] Oct, [facility] [address] [id number] [place] [address] Oct, [facility] [address] [id number] [place] [address] Sep, [facility] [address] [id number] [place] [address] Sep, [facility] [address] [id number] [place] [address] Sep, [facility] [address] [id number] [place] [address] Sep, [facility] [address] [id number] [place] [address] August, [facility] [address] [id number] [place] [address] August, [facility] [address] [id number] [place] [address] August, [facility] [address] [id number] [place] [address] August, [facility] [address] [id number] [place] [address] August, [facility] [address] [id number] [place] [address] Jul, [facility] [address] [id number] [place] [address] Jul, [facility] [address] [id number] [place] [address] Jul, [facility] [address] [id number] [place] [address] Jul, [facility] [address] [id number] [place] [address] Jul, [facility] [address] [id number] [place] [address] Jul, [facility] [address] [id number] [place] [address] Jul, [facility] [address] [id number] [place] [address] Jul, [facility] [address] [id number] [place] [address] Jul, [facility] [address] [id number] [place] [address] Jul, [facility] [id number] [place] [id number] Jun, [facility] [address] [id number] [place] [address] Jun, [facility] [address] [id number] [place] [address] Jun, [facility] [address] [id number] [place] [address] Jun, [facility] [address] [id number] [place] [address] Jun, [facility] [address] [id number] [place] [address] May, [facility] [address] [id number] [place] [address] May, [facility] [address] [id number] [place] [address] May, [facility] [address] [id number] [place] [address] Apr, [facility] [address] [id number] [place] [address] Apr, [facility] [address] [id number] [place] [address] Apr, [facility] [address] [id number] [place] [address] Apr, [facility] [address] [id number] [place] [address] Apr, [facility] [address] [id number] [place] [address] Apr, [facility] [address] [id number] [place] [address] Mar, [facility] [address] [id number] [place] [address] Mar, [facility] [address] [id number] [place] [address] Mar, [facility] [address] [id number] [place] [address] Mar, [facility] [address] [id number] [place] [address] Feb, [facility] [id number] [place] [address] Feb, [facility] [address] [id number] [place] [address] Feb, [facility] [address] [id number] [place] [address] Feb, [facility] [address] [id number] [place] [address] Feb, [facility] [address] [id number] [place] [address] Feb, [facility] [address] [id number] [place] [address] Feb, [facility] [address] [id number] [place] [address] Feb, [facility] [address] [id number] [place] [address] Feb, [facility] [address] [id number] [place] [address] Feb, [facility] [address] [id number] [place] [address] Feb, [facility] [id number] [place] [address] Feb, [facility] [address] [id number] [place] [address] Feb, [facility] [address] [id number] [place] [address] Feb, [facility] [address] [id number] [place] [address] Feb, [facility] [address] [id number] [place] [address] Feb, [facility] [address] [id number] [place] [address] Jan, [facility] [address] [id number] [place] [address] Jan, [facility] [id number] [place] [address] Jan, [facility] [address] [id number] [place] [address] Jan, [facility] [address] [id number] [place] [address] Jan, 2011 [facility] [address] [facility] [id number] [place] [address] Jan, [facility] [address] [id number] [place] [address] 25 Jan, 2011 [facility] [address] [id number] [place] [address] 16 Jan, 2012 [facility] [address] [id number] [place] [address] 16 Jan, 2012 [facility] [address] [facility] [id number] [place] [address] 15 Jan, 2012 [facility] [address] [id number] [place] [address] 15 Jan, 2012 [facility] [address] [id number] [place] [address] Jan, [facility] [address] [id number] [place] [address] 26 Sep, 2011 [facility] [address] [id number] [place] [address] 26 Sep, 2011 [facility] [address] [id number] [place] [address] 24 Sep, 2011 [facility] [address] [id number] [place] [address] 23 Sep, 2011 [facility] [address] [id number] [place] [address] 22 Sep, 2011 [facility] [address] [id number] [place] [address] 21 Sep, 2011 [facility] [address] [id number] [place] [address] 20 Sep, 2011 [facility] [address] [id number] [place] [address] 20 Sep, 2011 [facility] [address] [id number] [place] [address] 07 Sep, 2011 [facility] [address] [id number] [facility] [place] [address] 06 Dec, 2011 [facility] [address] [id number] [facility] [place] [address] 06 Dec, 2011 [facility] [address] [facility] [id number] [facility] [place] [address] 05 Dec, 2011 [facility] [address] [id number] [facility] [place] [address] Nov, [facility] [address] [id number] [facility] [place] [address] Nov, [facility] [address] [facility] [id number] [facility] [place] [address] Nov, [facility] [address] [id number] [place] [address] Nov, [facility] [address] [id number] [place] [address] Nov, [facility] [address] [id number] [place] [address] Nov, [facility] [address] [id number] [place] [address] Nov, [facility] [address] [id number] [place] [address] Nov, [facility] [address] [id number] [place] [address] Oct, [facility] [address] [id number] [place] [address] Oct, [facility] [address] [id number] [place] [address] Oct, [facility] [address] [id number] [place] [address] Oct, [facility] [address] [id number] [place] [address] Oct, [facility] [address] [id number] [place] [address] Oct, [facility] [address] [id number] [place] [address] Oct, [facility] [address] [id number] [place] [address] Sep, [facility] [address] [id number] [place] [address] Sep, [facility] [address] [id number] [place] [address] August, [facility] [address] [id number] [place] [address] August, [facility] [address] [id number] [place] [address] August, [facility] [address] [id number] [place] [address] August, [facility] [address] [id number] [place] [address] Jul, [facility] [address] [id number] [place] [address] Jul, [facility] [address] [id number] [place] [address] Jul, [facility] [address] [id number] [place] [address] Jul, [facility] [address] [id number] [place] [address] Jul, [facility] [address] [id number] [place] [address] Jul, [facility] [address] [id number] [place] [address] Jul, [facility] [address] [id number] [place] [address] Jul, [facility] [address] [id number] [place] [address] Jul, [facility] [address] [id number] [place] [address] 23 Jun, 2011 [facility] [address] [facility] [id number] [place] [address] 19 Jun, 2011 [facility] [address] [facility] [id number] [facility] [place] [address] 15 Jun, 2011 [facility] [address] [facility] [id number] [facility] [place] [address] 14 Jun, 2011 [facility] [address] [id number] [facility] [place] [address] 12 Jun, 2011 [facility] [address] [facility] [id number] [facility] [place] [address] Jun, [facility] [address] [id number] [place] [address] Jun, [facility] [address] [id number] [place] [address] May, [facility] [address] [id number] [place] [address] 24 May, 2011 [facility] [address] [id number] [place] [address] May, [facility] [address] [id number] [place] [address] May, [facility] [address] [id number] [place] [address] May, [facility] [address] [id number] [place] [address] Apr, [facility] [address] [id number] [place] [address] Apr, [facility] [address] [id number] [place] [address] Apr, [facility] [address] [id number] [place] [address] Apr, [facility] [address] [id number] [place] [address] Apr, [facility] [address] [id number] [place] [address] 30 Mar, 2011 [facility] [address] [id number] [place] [address] Mar, [facility] [address] [id number] [place] [address] Mar, [facility] [address] [id number] [place] [address] Mar, [facility] [address] [id number] [place] [address] Mar, [facility] [address] [id number] [place] [address] Mar, [facility] [address] [id number] [place] [address] Mar, [facility] [address] [id number] [place] [address] Feb, [facility] [address] [id number] [place] [address] Feb, [facility] [address] [id number] [place] [address] Feb, [facility] [address] [id number] [place] [address] Feb, [facility] [address] [id number] [place] [address] Jan, [facility] [address] [id number] [place] [address] Jan, [facility] [address] [id number] [place] [address] Jan, [facility] [address] [id number] [place] [address] Jan, [facility] [address] [id number] [place] [address] Nov, [facility] [address] [id number] [place] [address] Mar, [facility] [id number] [place] [address] Mar, [facility] [address] [address] Mar, [facility] [id number] [place] [address] Mar, [facility] [address] [address] Mar, [facility] [address] [address] Mar, [facility] [address] [address] Feb, [facility] [address] [address] Feb, [facility] [address] [address] Jan, [facility] [id number] [place] [address] Jan, [facility] [address] [address] Jan, IMMUNIZATIONS No Known Immunizations SOCIAL HISTORY Never Assessed REASON FOR VISIT PLAN OF CARE VITAL SIGNS Height 63 in 2013-08-22 Weight 268.4 lbs 2013-08-22 Temperature 99.3 degrees Fahrenheit 2013-08-22 Heart Rate 88 bpm 2013-08-22 Respiratory Rate 20 2013-08-22 Blood pressure systolic 160 mmHg 2013-08-22 Blood pressure diastolic 102 mmHg 2013-08-22 MEDICATIONS Unknown Medications RESULTS No Results PROCEDURES Procedure Date Ordered Result Body Site ASSAY THYROID STIM HORMONE August 22, 2013 COMPREHEN METABOLIC PANEL August 22, 2013 VENIPUNCT, ROUTINE* August 22, 2013 INSTRUCTIONS MEDICATIONS ADMINISTERED No Known Medications [...] 09-2015 & 2007 Surgical History Bladder surgery [facility] 03/2016 Surgical History Neurotransmitter placed 10/2017 Surgical History retninal repair 12/31/2017 Surgical History cataract surgery 2018 Surgical History cataract surgery 2018 Surgical History SCS trial x7 days 2018 Surgical History SCS implant removed. 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
--- OUTSIDE RECORDS SUMMARY | 2019-08-01 10:01 | XMS REPORT ---
Author Author Jah Lola Doctor Organization [facility] Address Unknown Phone Unavailable Care Team Providers Care Cardiac Specialist Name Role Phone Migration, Doctor Unavailable Unavailable PROBLEMS Type Condition ICD9-CM Code [id number] Code Onset Dates Condition S tatus SNOMED Code Problem Generalized anxiety disorder F41.1 A ctive 73762279 Problem Low back pain M54.5 Active 123647 009 Problem Insomnia G47.00 Active 944865948 Problem Hypothyroid E03.9 Active 58369799 Problem Palpitations R00.2 Active 2256446 2 Problem Asthma J45.909 Active 126035975 Problem Mixed stress and urge urinary incontinence N39.46 Active 093202702 Problem Fibromyalgia M79.7 Active 9636477 05 Problem Stage 3 chronic kidney disease N18.3 Active 692207468 Problem Body mass index (BMI) of 40.0-44.9 in adult Z68.41 Active 754969082 Problem Seasonal allergic rhinitis due to pollen J30.1 Active 49344613 Problem 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 Active 0980945555855 Problem Primary osteoarthritis of left knee M17.12 Active 796741135 Problem Hypercholesterolemia E78.00 Active 47724399 Problem Essential (primary) hypertension I10 Active 90225818 Problem Restless leg syndrome G25.81 Active 22286624 Problem Chronic pain syndrome G89.4 Active 552285963 Problem Perimenopausal vasomotor symptoms N95.1 Active 690030402 Problem Major depressive disorder, recurrent, moderate F33 .1 Active 174564722 ALLERGIES No Information ENCOUNTERS Encounter Location Date Diagnosis [facility] [address] [facility] [id number] [place] [address] Jun, [facility] [address] [facility] [id number] [address] [place] [address] May, Chronic pain syndrome G89.4 [facility] [address] [id number] [place] [address] May, Generalized anxiety disorder F41.1 and M zion depressive disorder, recurrent episode with anxious distress F33.9 [place] [address] [address] Apr, Major depressive disorder, recurrent, mo derate F33.1 ; Generalized anxiety disorder F41.1 and Dysthymic disorder F34.1 [place] [address] [address] Apr, Chronic pain syndrome G89.4 [place] [address] [address] Apr, Acute pain of right knee M25.561 [place] [address] [address] Apr, [place] [address] [address] Mar, Major depressive disorder, recurrent, mo derate F33.1 ; Generalized anxiety disorder F41.1 and Dysthymic disorder F34.1 [facility] [address] [facility] [id number] [address] [place] [address] Mar, Fluid collection of middle e ar H65.90 and Dizziness R42 [place] [address] [address] Mar, [place] [address] [address] Mar, [place] [address] [address] Mar, Essential (primary) hypertension I10 ; S tage 3 chronic kidney disease N18.3 ; Hypercholesterolemia E78.00 ; Asthma J45.909 ; Recurrent UTI N39.0 ; Status post shoulder surgery Z98.890 and Encounter for immunization Z23 [place] [address] [address] Mar, Chronic pain syndrome G89.4 [place] [address] [address] Feb, [facility] [address] [address] Feb, [facility] [address] [address] Feb, Oral thrush B37.0 and Sore throat J02.9 [place] [address] [address] Feb, Chronic pain syndrome G89.4 [facility] [address] [address] Jan, [place] [address] [address] Jan, Chronic pain syndrome G89.4 [place] [address] [address] Jan, Hypercholesterolemia E78.00 [place] [address] [address] Jan, [place] [address] [address] Dec, Chronic kidney disease, stage 4 (severe) N18.4 [place] [address] [address] Dec, Major depressive disorder, recurrent, mo derate F33.1 ; Generalized anxiety disorder F41.1 and Dysthymic disorder F34.1 [place] [address] [address] Dec, Generalized anxiety disorder F41.1 and M ajor depressive disorder, recurrent episode with anxious distress F33.9 [place] [address] [address] Dec, [place] [address] [address] Dec, [place] [address] [address] Dec, Encounter for immunization Z23 [place] [address] [address] Dec, Diarrhea, unspecified type R19.7 and Hem orrhoids, unspecified hemorrhoid type K64.9 [place] [address] [address] Dec, Encounter for Medicare annual wellness e xam Z00.00 ; Chronic kidney disease, stage 4 (severe) N18.4 ; Encounter for immunization Z23 ; Major depressive disorder, recurrent, moderate F33.1 ; Atherosclerosis of [place] coronary artery of [place] heart with angina pectoris I25.119 ; Asthma J45.909 ; Hypothyroid E03.9 and Fibromyalgia M79.7 [place] [address] [address] Dec, Chronic pain syndrome G89.4 [place] [address] [address] Nov, Major depressive disorder, recurrent, mo derate F33.1 ; Generalized anxiety disorder F41.1 and Dysthymic disorder F34.1 [place] [address] [address] Nov, [place] [address] [address] Nov, Chronic pain syndrome G89.4 [place] [address] [address] Nov, Restless leg syndrome G25.81 [place] [address] [address] Nov, Pain in right shoulder M25.511 ; Restles s leg syndrome G25.81 ; Other chronic pain G89.29 ; Screening for breast cancer Z12.39 ; Insomnia G47.00 and Morbid obesity E66.01 [place] [address] [address] Nov, [place] [address] [address] Oct, Major depressive disorder, recurrent, mo derate F33.1 ; Generalized anxiety disorder F41.1 and Dysthymic disorder F34.1 [facility] [address] [address] Oct, [facility] [address] [address] Oct, Cellulitis of left lower extremity L03.1 16 and Morbid obesity E66.01 [facility] [address] [place] [id number] [address] [place] [address] Oct, [facility] [address] [address] Oct, [facility] [address] [address] Oct, Generalized anxiety disorder F41.1 and M shiraor depressive disorder, recurrent episode with anxious distress F33.9 [facility] [address] [place] [id number] [address] [place] [address] Oct, [facility] [address] [address] Oct, Chronic pain syndrome G89.4 [facility] [address] [address] Oct, Chronic pain syndrome G89.4 [facility] [address] [place] [id number] [address] [place] [address] Oct, UTI symptoms R39.9 ; Acute c ystitis without hematuria N30.00 and Morbid obesity E66.01 [facility] [address] [address] Oct, [facility] [address] [address] Oct, Chronic pain syndrome G89.4 [facility] [address] [address] Sep, [place] [address] [address] Sep, Generalized anxiety disorder F41.1 and M shiraor depressive disorder, recurrent episode with anxious distress F33.9 [place] [address] [address] 17 Sep, 2018 Chronic kidney disease, stage 4 (severe) N18.4 [facility] [address] [address] Sep, Fibromyalgia M79.7 and Chronic pain synd lisseth G89.4 [place] [address] [address] Sep, [address] [place] [address] Sep, Chronic pain syndrome G89.4 [place] [address] [address] Sep, [place] [address] [address] Sep, Chronic pain syndrome G89.4 ; Fibromyalg ia M79.7 and Morbid obesity E66.01 [place] [address] [address] August, Generalized anxiety disorder F41.1 and Tae zion depressive disorder, recurrent episode with anxious distress F33.9 [place] [address] [address] August, Fibromyalgia M79.7 [place] [address] [address] August, Restless leg syndrome G25.81 ; Vitamin D deficiency E55.9 ; Urinary tract infection without hematuria, site unspecified N39.0 ; Pain in right shoulder M25.511 ; Other chronic pain G89.29 ; Biceps tendinitis on right M75.21 and Morbid obesity E66.01 [place] [address] [address] Jul, Urinary tract infection without hematuri a, site unspecified N39.0 and Morbid obesity E66.01 [place] [address] [address] Jul, [place] [address] [address] Jul, [place] [address] [address] Jul, Fibromyalgia M79.7 [place] [address] [address] Jul, Acute pain of right shoulder M25.511 [place] [address] [address] Jul, Acute pain of right shoulder M25.511 and Morbid obesity E66.01 [place] [address] [address] Jun, [place] [address] [address] Jun, Generalized anxiety disorder F41.1 and M ajor depressive disorder, recurrent episode with anxious distress F33.9 [place] [address] [address] Jun, [place] [address] [address] Jun, Fibromyalgia M79.7 [facility] [address] [facility] [id number] [place] [address] Jun, Acute pain of right shoulder M25.511 ; Acute pain of right hip M25.551 and Morbid obesity E66.01 [place] [address] [address] May, Burning with urination R30.0 ; Vaginal d ischarge N89.8 ; Chronic kidney disease, stage 4 (severe) N18.4 ; Body mass index (BMI) of 40.0-44.9 in adult Z68.41 and Morbid obesity E66.01 [facility] [address] [address] 07 May, 2018 Fibromyalgia M79.7 [facility] [address] [address] 06 May, 2018 Generalized anxiety disorder F41.1 and M zion depressive disorder, recurrent episode with anxious distress F33.9 [facility] [address] [address] Apr, [facility] [address] [address] 08 Apr, 2018 Fibromyalgia M79.7 [facility] [address] [place] [id number] [address] [place] [address] 14 Mar, 2018 Acute UTI N39.0 and Dysuria R30.0 [place] [address] [address] 10 Mar, 2018 Fibromyalgia M79.7 [facility] [address] [address] 15 Feb, 2018 [place] [address] [address] 14 Feb, 2018 [place] [address] [address] Feb, [place] [address] [address] Feb, Fibromyalgia M79.7 [facility] [address] [address] 08 Feb, 2018 Complicated UTI (urinary tract infection ) N39.0 [place] [address] [address] 07 Feb, 2018 [place] [address] [address] Jan, Generalized anxiety disorder F41.1 and M zion depressive disorder, recurrent episode with anxious distress F33.9 [facility] [address] [place] [id number] [place] [address] Jan, Acute conjunctivitis of left eye, unspecified acute conjunctivitis type H10.32 [place] [address] [address] Jan, [facility] [address] [address] Jan, Acute non-recurrent maxillary sinusitis J01.00 ; Dysuria R30.0 ; Perimenopausal vasomotor symptoms N95.1 and Fibromyalgia M79.7 [facility] [address] [address] Dec, Vitamin D deficiency E55.9 [place] [address] [address] Dec, Vitamin D deficiency E55.9 [place] [address] [address] Dec, Vitamin D deficiency E55.9 [facility] [address] [address] Dec, [place] [address] [address] Dec, Fibromyalgia M79.7 [facility] [address] [address] Nov, [place] [address] [address] Nov, [facility] [address] [address] Nov, [facility] [address] [address] Nov, Fibromyalgia M79.7 ; Vision changes H53. 9 ; Chest wall pain R07.89 and Chronic pain syndrome G89.4 [facility] [address] [address] Nov, [facility] [address] [address] Nov, Rash of hands R21 [facility] [address] [address] Nov, Generalized anxiety disorder F41.1 and Tae donovan depressive disorder, recurrent episode with anxious distress F33.9 [place] [address] [address] Nov, Fibromyalgia M79.7 [facility] [address] [address] Nov, Complicated UTI (urinary tract infection ) N39.0 [place] [address] [address] Oct, [place] [address] [address] Oct, Generalized anxiety disorder F41.1 and Tae donovan depressive disorder, recurrent episode with anxious distress F33.9 [place] [address] [address] Oct, [place] [address] [address] Oct, Fibromyalgia M79.7 [place] [address] [address] Sep, Restless leg syndrome G25.81 and Restles s leg G25.81 [place] [address] [address] Sep, [place] [address] [address] Sep, Seasonal allergic rhinitis due to pollen J30.1 ; Screening for breast cancer Z12.31 ; Chest pain at rest R07.9 ; Restless leg syndrome G25.81 ; Essential (primary) hypertension I10 and Depressed F32.9 [facility] [address] [address] August, Fibromyalgia M79.7 [place] [address] [address] August, [facility] [address] [address] August, [facility] [address] [address] August, Abnormal chest CT R93.8 [facility] [address] [address] August, Generalized anxiety disorder F41.1 and Tae donovan depressive disorder, recurrent episode with anxious distress F33.9 [facility] [address] [address] August, Abnormal chest CT R93.8 [place] [address] [address] Jul, [place] [address] [address] Jul, Chronic kidney disease, stage 4 (severe) N18.4 [place] [address] [address] Jul, [place] [address] [address] Jul, Restless leg G25.81 ; Mixed stress and u rge urinary incontinence N39.46 and Fibromyalgia M79.7 [place] [address] [address] Jul, Chronic kidney disease, stage 4 (severe) N18.4 [place] [address] [address] Jun, Orthostatic hypotension I95.1 ; Chronic kidney disease, stage 4 (severe) N18.4 ; Chest wall discomfort R07.89 and Body mass index (BMI) of 40.0- 44.9 in adult Z68.41 [place] [address] [address] Jun, [place] [address] [place] [address] [place] [address] Jun, Orthostatic hypotension I95.1 [facility] [address] [address] Jun, [facility] [address] [facility] [id number] [address] [place] [address] Jun, Orthostatic hypotension I95. 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 [facility] [address] [address] May, Chronic kidney disease, stage 4 (severe) N18.4 [facility] [address] [address] May, Chronic kidney disease, stage 4 (severe) N18.4 [facility] [address] [address] May, Abnormal chest [address] R93.8 [facility] [address] [address] May, [facility] [address] [place] [address] May, [facility] [address] [address] May, Generalized anxiety disorder F41.1 and Tae zion depressive disorder, recurrent episode with anxious distress F33.9 [facility] [address] [place] [id number] [place] [address] May, Mood disorder F39 [facility] [address] [address] Apr, [facility] [address] [address] Apr, Infected skin lesion L08.[address] rain of right shoulder region, initial encounter S46.911A [facility] [address] [address] Apr, Generalized anxiety disorder F41.1 and Tae donovan depressive disorder, recurrent episode with anxious distress F33.9 [facility] [address] [place] [id number] [place] [address] Apr, [facility] [address] [address] Apr, Recent urinary tract infection Z87.440 a nd Hypothyroid E03.9 [facility] [address] [address] Apr, Generalized anxiety disorder F41.1 and Tae donovan depressive disorder, recurrent episode with anxious distress F33.9 [facility] [address] [place] [id number] [place] [address] Apr, Recent urinary tract infection Z87.440 [facility] [address] [place] [id number] [place] [address] Mar, [facility] [address] [facility] [id number] [address] [place] [address] Mar, Dysuria R30.0 ; Acute cystit is without hematuria N30.00 and BMI 40.0-44.9, adult Z68.41 [place] [address] [address] 14 Mar, 2017 [place] [address] [address] Mar, [place] [address] [address] Mar, Generalized anxiety disorder F41.1 and Tae donovan depressive disorder, recurrent episode with anxious distress F33.9 [place] [address] [address] Feb, Conjunctivitis, bacterial H10.9 [place] [address] [address] Feb, [facility] [address] [place] [address] Feb, Conjunctivitis, bacterial H1 0.9 [place] [address] [address] Feb, [facility] [address] [address] Feb, Dysuria R30.0 ; Acute cystit is N30.00 and BMI 40.0-44.9, adult Z68.41 [place] [address] [address] Feb, [place] [address] [address] Feb, Generalized anxiety disorder F41.1 and Tae donovan depressive disorder, recurrent episode with anxious distress F33.9 [place] [address] [address] Feb, Mood disorder F39 and BMI 40.0-44.9, feli lt Z68.41 [place] [address] [address] Jan, [place] [address] [address] Jan, [place] [address] [address] Jan, Hypothyroid E03.9 [place] [address] [address] Jan, [place] [address] [address] Jan, Chronic kidney disease, unspecified N18. 9 ; Hypokalemia E87.6 ; Essential (primary) hypertension I10 ; Fibromyalgia M79.7 ; Coronary artery disease involving [place] coronary artery of [place] heart, angina presence unspecified I25.10 ; Hypothyroid E03.9 and Encounter for immunization Z23 [place] [address] [address] Jan, Hypothyroid E03.9 [place] [address] [address] Jan, [place] [address] [address] Dec, Vitamin D deficiency E55.9 [place] [address] [address] Dec, Primary osteoarthritis of left knee M17. 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 [place] [address] [address] 19 Dec, 2016 Fibromyalgia M79.7 [place] [address] [address] 18 Dec, 2016 Mood disorder F39 [place] [address] [address] Dec, [place] [address] [address] 13 Dec, 2016 Generalized anxiety disorder F41.1 and M ajor depressive disorder, recurrent episode with anxious distress F33.9 [place] [address] [address] 11 Dec, 2016 [facility] [id number] [place] [address] 08 Dec, 2016 Streptococcal meningitis G00.2 [facility] [address] [address] 07 Dec, 2016 Streptococcal meningitis G00.2 [facility] [id number] [place] [address] 07 Dec, 2016 [facility] [address] [address] 06 Dec, 2016 Streptococcal meningitis G00.2 [facility] [address] [address] Dec, 2016 [facility] [address] [id number] [place] [address] Dec, Major depressive disorder, recurrent epi sode with anxious distress F33.9 [facility] [id number] [place] [address] Nov, Fever, unspecified fever cause R50.9 [facility] [address] [id number] [place] [address] Nov, [facility] [address] [address] Nov, Hypothyroid E03.9 [facility] [address] [id number] [place] [address] Nov, Generalized anxiety disorder F41.1 and Tae donovan depressive disorder, recurrent episode with anxious distress F33.9 [facility] [address] [place] [id number] [place] [address] Nov, [facility] [address] [id number] [place] [id number] Oct, Dental examination Z01.20 [facility] [id number] [place] [address] Oct, Generalized anxiety disorder F41.1 and M shiraor depressive disorder, recurrent episode with anxious distress F33.9 [place] [address] [address] Oct, Chronic kidney disease, stage 4 (severe) N18.4 [place] [address] [address] Oct, [place] [address] [address] Oct, Fibromyalgia M79.7 [place] [address] [address] Oct, [place] [address] [address] Oct, Generalized anxiety disorder F41.1 ; Fady or depressive disorder, recurrent episode with anxious distress F33.9 and Bipolar disorder, current episode manic without psychotic features F31.10 [place] [address] [address] Sep, [place] [address] [address] Sep, [place] [address] [address] Sep, Vitamin D deficiency E55.9 [place] [address] [address] Sep, Vitamin D deficiency E55.9 [place] [address] [address] Sep, [place] [address] [address] Sep, Chronic kidney disease, stage 4 (severe) N18.4 ; Hypothyroid E03.9 ; Restless leg G25.81 ; Fibromyalgia M79.7 ; Essential (primary) hypertension I10 ; Vitamin D deficiency E55.9 ; Dyspepsia R10.13 ; Anemia in chronic kidney disease D63.1 ; Chronic kidney disease, unspecified N18.9 ; Coronary artery disease involving [place] coronary artery of [place] heart, angina presence unspecified I25.10 ; Screening breast examination Z12.39 and Low back pain M54.5 [place] [address] [address] August, Generalized anxiety disorder F41.1 and [place] depressive disorder, recurrent episode with anxious distress F33.9 [place] [address] [address] August, Generalized anxiety disorder F41.1 and [place] depressive disorder, recurrent episode with anxious distress F33.9 [place] [address] [address] August, Fibromyalgia M79.7 [place] [address] [address] Jul, Generalized anxiety disorder F41.1 and [place] depressive disorder, recurrent episode with anxious distress F33.9 [place] [address] [address] Jul, Fibromyalgia M79.7 [place] [address] [address] Jul, Generalized anxiety disorder F41.1 [place] [address] [address] May, [place] [address] [address] May, Hypothyroid E03.9 [place] [address] [address] May, Chronic kidney disease, stage 4 (severe) N18.4 ; Hypothyroid E03.9 ; Restless leg G25.81 ; Fibromyalgia M79.7 ; Essential (primary) hypertension I10 ; Vitamin D deficiency E55.9 ; Dyspepsia R10.13 ; Acute non-recurrent maxillary sinusitis J01.00 ; Anemia in chronic kidney disease D63.1 ; Chronic kidney disease, unspecified N18.9 and Coronary artery disease involving cher-ae heights coronary artery of cher-ae heights heart, angina presence unspecified I25.10 [place] [address] [address] 02 May, 2016 Vitamin D deficiency, unspecified E55.9 [facility] [address] [address] May, Generalized anxiety disorder F41.1 and M ajor depressive disorder, recurrent episode with anxious distress F33.9 [place] [address] [address] Apr, Pain in right knee M25.561 and Pain in l eft knee M25.562 [place] [address] [address] Apr, [place] [address] [address] Apr, [place] [address] [address] Apr, [place] [address] [address] Mar, Generalized anxiety disorder F41.1 and M ajor depressive disorder, recurrent episode with anxious distress F33.9 [place] [address] [address] Mar, Generalized anxiety disorder F41.1 and M ajor depressive disorder, recurrent episode with anxious distress F33.9 [place] [address] [address] Mar, [place] [address] [address] Mar, [facility] [address] [address] Mar, [place] [address] [address] Mar, Asthma J45.909 and Fibromyalgia M79.7 [place] [address] [address] Mar, Chronic kidney disease, stage 4 (severe) N18.4 ; Vitamin D deficiency E55.9 and Essential (primary) hypertension I10 [place] [address] [address] Feb, [place] [address] [address] Feb, Dysuria R30.0 ; Mixed stress and urge ur inary incontinence N39.46 ; Fibromyalgia M79.7 and Chronic kidney disease, stage IV (severe) N18.4 [place] [address] [address] Feb, Chronic kidney disease, stage 4 (severe) N18.4 [place] [address] [address] Feb, Chronic kidney disease, stage 4 (severe) N18.4 [place] [address] [address] Feb, [place] [address] [address] Feb, Vitamin D deficiency, unspecified E55.9 [place] [address] [address] Jan, [place] [address] [address] Jan, [place] [address] [address] Dec, [place] [address] [address] Dec, Chronic kidney disease, stage 4 (severe) N18.4 [place] [address] [address] Dec, Dysthymic disorder F34.1 and Generalized anxiety disorder F41.1 [place] [address] [address] Dec, [place] [address] [address] Dec, [place] [address] [address] Dec, Dysthymic disorder F34.1 and Generalized anxiety disorder F41.1 [place] [address] [address] Dec, Dysuria R30.0 ; Chronic kidney disease, stage 4 (severe) N18.4 ; Hypertension I10 ; Dyspepsia R10.13 ; Yeast dermatitis B37.2 ; Palpitations R00.2 ; Hypothyroid E03.9 ; Functional diarrhea K59.1 and Other seasonal allergic rhinitis J30.2 [facility] [address] [place] [address] Dec, [facility] [place] [address] [address] Nov, Dysuria R30.0 and Stress inc ontinence N39.3 [place] [address] [address] Nov, [place] [address] [address] Nov, [place] [address] [address] Nov, Osteoarthritis of knees, bilateral M17.0 [place] [address] [address] Nov, Dysthymic disorder F34.1 and Generalized anxiety disorder F41.1 [place] [address] [address] Nov, [place] [address] [address] Nov, [place] [address] [address] Nov, Urgency of urination R39.15 [place] [address] [address] Nov, [place] [address] [address] Nov, Chronic kidney disease, stage 4 (severe) N18.4 [place] [address] [address] Oct, Hypertension I10 ; Coronary artery disea se involving cher-ae heights coronary artery of cher-ae [place] heart, angina presence unspecified I25.10 ; Palpitations R00.2 ; Hypothyroid E03.9 ; Right foot pain M79.671 ; Functional diarrhea K59.1 and Other seasonal allergic rhinitis J30.2 [place] [address] [address] Oct, Dysthymic disorder F34.1 and Generalized anxiety disorder F41.1 [place] [address] [address] Sep, [place] [address] [address] Sep, [place] [address] [address] Sep, [place] [address] [address] Sep, [place] [address] [address] Sep, [place] [address] [address] Sep, Dysthymic disorder F34.1 and Generalized anxiety disorder F41.1 [place] [address] [address] 16 Sep, 2015 Asthma with acute exacerbation in adult J45.901 ; Dysuria R30.0 ; Chronic kidney disease, stage 4 (severe) N18.4 and History of anemia Z86.2 [place] [address] [address] Sep, Generalized anxiety disorder F41.1 and D ysthymic disorder F34.1 [place] [address] [address] August, Screening breast examination Z12.39 and Acute recurrent maxillary sinusitis J01.01 [place] [address] [address] August, Osteoarthritis of knees, bilateral M17.0 [place] [address] [address] August, Chronic kidney disease, stage 4 (severe) N18.4 ; Acute non-recurrent maxillary sinusitis J01.00 ; Urinary problem R39.89 ; Bowel habit changes R19.4 ; Functional diarrhea K59.1 and History of colon polyps Z86.010 [place] [address] [address] Jul, Dysthymic disorder F34.1 and Generalized anxiety disorder F41.1 [place] [address] [address] Jul, [place] [address] [address] Jul, Dysthymic disorder F34.1 ; Generalized a nxiety disorder F41.1 and 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.899 [place] [address] [address] Jul, [place] [address] [address] Jun, [place] [address] [address] Jun, [place] [address] [address] 17 May, 2015 [place] [address] [address] May, Dysthymic disorder F34.1 and Generalized anxiety disorder F41.1 [place] [address] [address] Apr, Kidney disease N28.9 [place] [address] [address] Apr, Generalized anxiety disorder F41.1 and D ysthymic disorder F34.1 [place] [address] [address] Apr, Chronic kidney disease, stage 4 (severe) N18.4 [place] [address] [address] Apr, Generalized anxiety disorder F41.1 ; Fady or depression, recurrent F33.9 and Sleep disturbance G47.9 [place] [address] [address] Mar, Generalized anxiety disorder F41.1 and D ysthymic disorder F34.[address] [address] Mar, Generalized anxiety disorder F41.1 ; 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 and Insomnia G47.[address] [address] Mar, [place] [address] [address] Mar, [address] [address] Mar, Osteoarthritis of knees, bilateral M17.[address] [address] Mar, Hypertension I10 ; Hypothyroid E03.9 ; D ysthymic disorder F34.1 ; Chronic kidney disease, stage 4 (severe) N18.4 and Nausea & vomiting R11.2 [place] [address] [address] Mar, Generalized anxiety disorder F41.1 ; 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 and Insomnia G47.00 [place] [address] [address] Mar, Dehydration E86.0 ; Chronic kidney disea se, stage 4 (severe) N18.4 and Nausea & vomiting R11.2 [facility] [address] [facility] [id number] [address] [place] [address] Mar, Gastroenteritis K52.9 [facility] [address] [address] Mar, [place] [address] [address] Mar, [address] [address] Feb, Dysthymic disorder F34.1 and Generalized anxiety disorder F41.[address] [address] Jan, UTI (urinary tract infection) N39.0 ; As thma J45.909 ; Coronary artery disease involving cher-ae heights coronary artery of cher-ae heights heart, angina presence unspecified I25.10 ; Hypertension I10 ; Hypothyroid E03.9 ; Vitamin D deficiency E55.9 ; Insomnia G47.00 ; Palpitations R00.2 ; Depressed F32.9 ; Restless leg G25.81 and Anxiety F41.[address] [address] Jan, Dysthymic disorder F34.1 and Generalized anxiety disorder F41.1 [facility] [address] [address] Jan, [address] [address] Dec, [address] [address] Dec, Alkalosis 276.3 ; Chronic kidney disease , Stage IV (severe) 585.4 ; Hyperpotassemia 276.7 ; Secondary hyperparathyroidism, renal 588.81 ; Proteinuria 791.0 ; Unspecified vitamin D deficiency 268.9 ; Anemia in chronic kidney disease 285.21 ; Other and unspecified hyperlipidemia 272.4 ; Hypertension, essential, benign 401.1 and Chronic kidney disease (CKD), stage III (moderate) 585.3 [place] [address] [address] Dec, [place] [address] [address] Dec, Depressive disorder, not elsewhere class ified 311 and Generalized anxiety disorder 300.02 [place] [address] [address] Dec, [address] [address] Dec, [address] [address] Nov, Depressive disorder, not elsewhere class ified 311 and Generalized anxiety disorder 300.[address] [address] Nov, Arthritis of both knees 716.[address] [address] Nov, PAF (paroxysmal atrial fibrillation) 427 .31 ; CAD (coronary artery disease) 414.00 ; Chest pain 786.50 and Chronic kidney disease (CKD) stage G4/A1, severely decreased glomerular filtration rate (GFR) between 15-29 mL/min/1.73 square meter and albuminuria creatinine ratio less than 30 mg/g 585.[address] [address] Oct, Coronary atherosclerosis of unspecified type of vessel, cher-ae heights or graft 414.00 ; Chronic kidney disease, Stage IV (severe) 585.4 ; Hypertension 401.9 and Edema 782.[address] [address] Oct, Depressive disorder, not elsewhere class ified 311 and Generalized anxiety disorder 300.02 [address] [place] [address] Oct, Depressive disorder, not elsewhere class ified 311 and Generalized anxiety disorder 300.02 [facility] [address] [address] Oct, [facility] [address] [address] Oct, [facility] [address] [address] Sep, [facility] [address] [address] Sep, Chronic kidney disease, Stage IV (severe ) 585.4 [place] [address] [address] Sep, [facility] [address] [address] Sep, Coronary atherosclerosis of unspecified type of vessel, cher-ae heights or graft 414.00 ; Hypertension 401.9 ; Edema 782.3 and Hypothyroidism 244.9 [place] [address] [address] Sep, Coronary atherosclerosis of unspecified type of vessel, cher-ae heights or graft 414.00 ; Hypertension 401.9 ; Fibromyalgia 729.1 ; Edema 782.3 ; Hypothyroidism 244.9 and Anemia 285.9 [place] [address] [address] Sep, Anxiety disorder, unspecified 300.00 and Depressive disorder, not elsewhere classified 311 [facility] [address] [address] Sep, [facility] [address] [address] August, Generalized anxiety disorder 300.02 [facility] [address] [address] August, Closed fracture of lateral malleolus 824 .2 [place] [address] [address] 14 Jul, 2014 [facility] [place] [facility] [address] [facility] [id number] [place] [address] 13 Jul, 2014 [facility] [place] [facility] [address] [facility] [id number] [place] [address] 21 Jun, 2014 [facility] [place] [facility] [address] [id number] [place] [address] Jun, [facility] [place] [facility] [address] [id number] [place] [address] Jun, [facility] [place] [facility] [address] [facility] [id number] [place] [address] Jun, [facility] [place] [facility] [address] [id number] [place] [address] Jun, [facility] [place] [facility] [address] [id number] [place] [address] Jun, [facility] [place] [facility] [address] [id number] [place] [address] 19 May, 2014 [facility] [place] [facility] [address] [facility] [id number] [place] [address] 19 May, 2014 [facility] [place] [facility] [address] [id number] [place] [address] 18 May, 2014 [facility] [place] [facility] [address] [id number] [place] [address] 18 May, 2014 [facility] [place] [facility] [address] [id number] [place] [address] 16 May, 2014 [facility] [place] [facility] [address] [facility] [id number] [place] [address] 16 May, 2014 [facility] [place] [facility] [address] [id number] [place] [address] 13 May, 2014 [facility] [place] [facility] [address] [id number] [place] [address] 13 May, 2014 [facility] [place] [facility] [address] [id number] [place] [address] 10 May, 2014 [facility] [place] [facility] [address] [id number] [place] [address] May, [facility] [place] [facility] [address] [id number] [place] [address] Apr, [facility] [place] [facility] [address] [id number] [place] [address] Apr, [facility] [place] [facility] [address] [id number] [place] [address] Mar, [facility] [place] [facility] [address] [id number] [place] [address] Mar, [facility] [place] [facility] [address] [id number] [place] [address] Mar, [facility] [place] [facility] [address] [id number] [place] [address] Mar, [facility] [place] [facility] [address] [id number] [place] [address] Mar, [facility] [place] [facility] [address] [id number] [place] [address] Mar, [facility] [place] [facility] [address] [id number] [place] [address] Mar, [facility] [place] [facility] [address] [id number] [place] [address] Feb, [facility] [place] [facility] [address] [id number] [place] [address] Feb, [facility] [place] [facility] [address] [id number] [place] [address] Feb, [facility] [place] [facility] [address] [id number] [place] [address] Jan, [facility] [place] [facility] [address] [id number] [place] [address] Jan, [facility] [place] [facility] [address] [id number] [place] [address] Jan, [facility] [place] [facility] [address] [id number] [place] [address] Jan, [facility] [place] [facility] [address] [facility] [id number] [place] [address] Jan, [facility] [place] [facility] [address] [facility] [id number] [place] [address] Jan, [facility] [place] [facility] [address] [facility] [id number] [place] [address] Jan, [facility] [place] [facility] [address] [facility] [id number] [place] [address] Jan, [facility] [place] [facility] [address] [facility] [id number] [place] [address] Jan, [facility] [place] [facility] [address] [facility] [id number] [place] [address] Jan, [facility] [place] [facility] [address] [id number] [place] [address] Nov, [facility] [place] [facility] [address] [id number] [place] [address] Nov, [facility] [place] [facility] [address] [facility] [id number] [place] [address] Nov, [facility] [place] [facility] [address] [id number] [place] [address] Oct, [facility] [place] [facility] [address] [id number] [place] [address] Oct, [facility] [place] [facility] [address] [id number] [place] [address] Oct, [facility] [place] [facility] [address] [facility] [id number] [place] [address] Oct, [facility] [place] [facility] [address] [facility] [id number] [place] [address] Oct, [facility] [place] [facility] [address] [facility] [id number] [place] [address] Oct, 2013 [facility] [place] [facility] [address] [id number] [place] [address] Oct, 2013 [facility] [place] [facility] [address] [facility] [id number] [place] [address] Oct, [facility] [place] [facility] [address] [facility] [id number] [place] [address] Oct, [facility] [place] [facility] [address] [facility] [id number] [place] [address] Sep, [facility] [place] [facility] [address] [id number] [place] [address] Sep, [facility] [place] [facility] [address] [facility] [id number] [place] [address] Sep, [facility] [place] [facility] [address] [id number] [place] [address] Sep, [facility] [place] [facility] [address] [id number] [place] [address] Sep, [facility] [place] [facility] [address] [id number] [place] [address] Sep, [facility] [place] [facility] [address] [id number] [place] [address] Sep, [facility] [place] [facility] [address] [id number] [place] [address] Sep, [facility] [place] [facility] [address] [id number] [place] [address] Sep, [facility] [place] [facility] [address] [id number] [place] [address] August, [facility] [place] [facility] [address] [id number] [place] [address] August, [facility] [place] [facility] [address] [id number] [place] [address] August, [facility] [place] [facility] [address] [id number] [place] [address] August, [facility] [place] [facility] [address] [id number] [place] [address] August, [facility] [place] [facility] [address] [id number] [place] [address] August, [facility] [place] [facility] [address] [id number] [place] [address] Jul, [facility] [place] [facility] [address] [id number] [place] [address] Jul, [facility] [place] [facility] [address] [id number] [place] [address] Jul, [facility] [place] [facility] [address] [id number] [place] [address] Jul, [facility] [place] [facility] [address] [id number] [place] [address] Jul, [facility] [place] [facility] [address] [id number] [place] [address] Jul, [facility] [place] [facility] [address] [id number] [place] [address] Jun, [facility] [place] [facility] [address] [id number] [place] [address] Jun, [facility] [place] [facility] [address] [id number] [place] [address] May, [facility] [place] [facility] [address] [id number] [place] [address] May, [facility] [place] [facility] [address] [id number] [place] [address] May, [facility] [place] [facility] [address] [id number] [place] [address] May, [facility] [place] [facility] [address] [id number] [place] [address] Apr, [facility] [place] [facility] [address] [id number] [place] [address] Apr, [facility] [place] [facility] [address] [id number] [place] [address] Mar, [facility] [place] [facility] [address] [id number] [place] [address] Mar, [facility] [place] [facility] [address] [id number] [place] [address] Mar, [facility] [place] [facility] [address] [id number] [place] [address] Mar, [facility] [place] [facility] [address] [id number] [place] [address] Mar, [facility] [place] [facility] [address] [id number] [place] [address] Mar, [facility] [place] [facility] [address] [id number] [place] [address] Feb, [facility] [place] [facility] [address] [id number] [place] [address] Feb, [facility] [place] [facility] [address] [place] [id number] [place] [address] Feb, [facility] [place] [id number] [place] [address] Feb, [facility] [id number] [place] [address] Feb, [facility] [address] [id number] [place] [address] Feb, [facility] [id number] [place] [address] Jan, [facility] [address] [id number] [place] [address] Jan, [facility] [address] [id number] [place] [address] Jan, [facility] [address] [id number] [place] [address] 10 Jan, 2013 [facility] [id number] [place] [address] 08 Jan, 2013 [facility] [address] [id number] [place] [address] Jan, [facility] [address] [id number] [place] [address] Dec, [facility] [address] [id number] [place] [address] Dec, [facility] [address] [id number] [place] [address] Nov, [facility] [address] [id number] [place] [address] Nov, [facility] [address] [id number] [place] [address] Oct, [facility] [address] [id number] [place] [address] Oct, [facility] [address] [id number] [place] [address] Oct, [facility] [address] [id number] [place] [address] Oct, [facility] [address] [id number] [place] [address] Oct, [facility] [address] [id number] [place] [address] Oct, [facility] [address] [id number] [place] [address] Sep, [facility] [address] [id number] [place] [address] Sep, [facility] [address] [id number] [place] [address] Sep, [facility] [address] [id number] [place] [address] Sep, [facility] [address] [id number] [place] [address] August, [facility] [address] [id number] [place] [address] August, [facility] [address] [id number] [place] [address] August, [facility] [address] [id number] [place] [address] August, [facility] [address] [id number] [place] [address] August, [facility] [address] [id number] [place] [address] Jul, [facility] [address] [id number] [place] [address] Jul, [facility] [address] [id number] [place] [address] Jul, [facility] [address] [id number] [place] [address] Jul, [facility] [address] [id number] [place] [address] Jul, [facility] [address] [id number] [place] [address] Jul, [facility] [address] [id number] [place] [address] Jul, [facility] [address] [id number] [place] [address] Jul, [facility] [address] [id number] [place] [address] Jul, [facility] [address] [id number] [place] [place] [address] Jul, [facility] [id number] [place] [id number] Jun, [facility] [address] [id number] [place] [address] Jun, [facility] [address] [id number] [place] [address] Jun, [facility] [address] [id number] [place] [address] Jun, [facility] [address] [id number] [place] [address] Jun, [facility] [address] [id number] [place] [address] May, [facility] [address] [id number] [place] [address] May, [facility] [address] [id number] [place] [address] May, [facility] [address] [id number] [place] [address] Apr, [facility] [address] [id number] [place] [address] Apr, [facility] [address] [id number] [place] [address] Apr, [facility] [address] [id number] [place] [address] Apr, [facility] [address] [id number] [place] [address] Apr, [facility] [address] [id number] [place] [address] Apr, [facility] [address] [id number] [place] [address] Mar, [facility] [address] [id number] [place] [address] Mar, [facility] [address] [id number] [place] [address] Mar, [facility] [address] [id number] [place] [address] Mar, [facility] [address] [id number] [place] [address] Feb, [facility] [id number] [place] [address] Feb, [facility] [address] [id number] [place] [address] Feb, [facility] [address] [id number] [place] [address] Feb, [facility] [address] [id number] [place] [address] Feb, [facility] [address] [id number] [place] [address] Feb, [facility] [address] [id number] [place] [address] Feb, [facility] [address] [id number] [place] [address] Feb, [facility] [address] [id number] [place] [address] Feb, [facility] [address] [id number] [place] [address] Feb, [facility] [address] [id number] [place] [address] Feb, [facility] [id number] [place] [address] Feb, [facility] [address] [id number] [place] [address] Feb, [facility] [address] [id number] [place] [address] Feb, [facility] [address] [id number] [place] [address] Feb, [facility] [address] [id number] [place] [address] Feb, [facility] [address] [id number] [place] [address] Jan, [facility] [address] [id number] [place] [address] Jan, [facility] [id number] [place] [address] Jan, [facility] [address] [id number] [place] [address] Jan, [facility] [address] [id number] [place] [address] Jan, 2011 [facility] [address] [facility] [id number] [place] [address] Jan, [facility] [address] [id number] [place] [address] 25 Jan, 2011 [facility] [address] [id number] [place] [address] 16 Jan, 2012 [facility] [address] [id number] [place] [address] 16 Jan, 2012 [facility] [address] [facility] [id number] [place] [address] 15 Jan, 2012 [facility] [address] [id number] [place] [address] 15 Jan, 2012 [facility] [address] [id number] [place] [address] Jan, [facility] [address] [id number] [place] [address] 26 Sep, 2011 [facility] [address] [id number] [place] [address] 26 Sep, 2011 [facility] [address] [id number] [place] [address] 24 Sep, 2011 [facility] [address] [id number] [place] [address] 23 Sep, 2011 [facility] [address] [id number] [place] [address] 22 Sep, 2011 [facility] [address] [id number] [place] [address] 21 Sep, 2011 [facility] [address] [id number] [place] [address] 20 Sep, 2011 [facility] [address] [id number] [place] [address] 20 Sep, 2011 [facility] [address] [id number] [place] [address] 07 Sep, 2011 [facility] [address] [id number] [place] [address] 06 Dec, 2011 [facility] [address] [id number] [place] [address] 06 Dec, 2011 [facility] [address] [facility] [id number] [place] [address] 05 Dec, 2011 [facility] [address] [id number] [place] [address] Nov, [facility] [address] [id number] [place] [address] Nov, [facility] [address] [facility] [id number] [place] [address] Nov, [facility] [address] [id number] [place] [address] Nov, [facility] [address] [id number] [place] [address] Nov, [facility] [address] [id number] [place] [address] Nov, [facility] [address] [id number] [place] [address] Nov, [facility] [address] [id number] [place] [address] Nov, [facility] [address] [id number] [place] [address] Oct, [facility] [address] [id number] [place] [address] Oct, [facility] [address] [id number] [place] [address] Oct, [facility] [address] [id number] [place] [address] Oct, [facility] [address] [id number] [place] [address] Oct, [facility] [address] [id number] [place] [address] Oct, [facility] [address] [id number] [place] [address] Oct, [facility] [address] [id number] [place] [address] Sep, [facility] [address] [id number] [place] [address] Sep, [facility] [address] [id number] [place] [address] August, [facility] [address] [id number] [place] [address] August, [facility] [address] [id number] [place] [address] August, [facility] [address] [id number] [place] [address] August, [facility] [address] [id number] [place] [address] Jul, [facility] [address] [id number] [place] [address] Jul, [facility] [address] [id number] [place] [address] Jul, [facility] [address] [id number] [place] [address] Jul, [facility] [address] [id number] [place] [address] Jul, [facility] [address] [id number] [place] [address] Jul, [facility] [address] [id number] [place] [address] Jul, [facility] [address] [id number] [place] [address] Jul, [facility] [address] [id number] [place] [address] Jul, [facility] [address] [id number] [place] [address] 23 Jun, 2011 [facility] [address] [facility] [id number] [place] [address] 19 Jun, 2011 [facility] [address] [facility] [id number] [place] [address] 15 Jun, 2011 [facility] [address] [facility] [id number] [place] [address] 14 Jun, 2011 [facility] [address] [id number] [place] [address] 12 Jun, 2011 [facility] [address] [facility] [id number] [place] [address] Jun, [facility] [address] [id number] [place] [address] Jun, [facility] [address] [id number] [place] [address] May, [facility] [address] [id number] [place] [address] 24 May, 2011 [facility] [address] [id number] [place] [address] May, [facility] [address] [id number] [place] [address] May, [facility] [address] [id number] [place] [address] May, [facility] [address] [id number] [place] [address] Apr, [facility] [address] [id number] [place] [address] Apr, [facility] [address] [id number] [place] [address] Apr, [facility] [address] [id number] [place] [address] Apr, [facility] [address] [id number] [place] [address] Apr, [facility] [address] [id number] [place] [address] 30 Mar, 2011 [facility] [address] [id number] [place] [address] Mar, [facility] [address] [id number] [place] [address] Mar, [facility] [address] [id number] [place] [address] Mar, [facility] [address] [id number] [place] [address] Mar, [facility] [address] [id number] [place] [address] Mar, [facility] [address] [id number] [place] [address] Mar, [facility] [address] [id number] [place] [address] Feb, [facility] [address] [id number] [place] [address] Feb, [facility] [address] [id number] [place] [address] Feb, [facility] [address] [id number] [place] [address] Feb, [facility] [address] [id number] [place] [address] Jan, [facility] [address] [id number] [place] [address] Jan, [facility] [address] [id number] [place] [address] Jan, [facility] [address] [id number] [place] [address] Jan, [facility] [address] [id number] [place] [address] Nov, [facility] [address] [id number] [place] [address] Mar, [facility] [id number] [place] [address] Mar, [facility] [address] [address] Mar, [facility] [id number] [place] [address] Mar, [facility] [address] [address] Mar, [facility] [address] [address] Mar, [facility] [address] [address] Feb, [facility] [address] [address] Feb, [facility] [address] [address] Jan, [facility] [id number] [place] [address] Jan, [facility] [address] [address] Jan, IMMUNIZATIONS No Known Immunizations SOCIAL HISTORY Never Assessed REASON FOR VISIT PLAN OF CARE VITAL SIGNS Blood pressure systolic 120 mmHg 2013-08-21 Blood pressure diastolic 80 mmHg 2013-08-21 MEDICATIONS Unknown Medications RESULTS No Results PROCEDURES Procedure Date Ordered Result Body Site DRAIN/INJECT, JOINT/BURSA August 21, 2013 INSTRUCTIONS MEDICATIONS ADMINISTERED No Known [...] meningitis December 2016 Hospitalization History [facility] psych for SI 1988 Hospitalization History [facility]-Altered mental status 05/2017 Hospitalization History sepsis, UTI, headache 08/03/2018-
--- OUTSIDE RECORDS SUMMARY | 2019-08-01 10:02 | XMS REPORT ---
Author Author JahLola Doctor Organization [facility] Address Unknown Phone Unavailable Care Team Providers Care Accelerator Systems Director Name Role Phone Migration, Doctor Unavailable Unavailable PROBLEMS Type Condition ICD9-CM Code SGN93-WD Code Onset Dates Condition S tatus SNOMED Code Problem Generalized anxiety disorder F41.1 A ctive 68425659 Problem Low back pain M54.5 Active 113199 009 Problem Insomnia G47.00 Active 789895795 Problem Hypothyroid E03.9 Active 71058919 Problem Palpitations R00.2 Active 1257776 2 Problem Asthma J45.909 Active 421912832 Problem Mixed stress and urge urinary incontinence N39.46 Active 790860998 Problem Fibromyalgia M79.7 Active 7569317 05 Problem Stage 3 chronic kidney disease N18.3 Active 595161268 Problem Body mass index (BMI) of 40.0-44.9 in adult Z68.41 Active 802295765 Problem Seasonal allergic rhinitis due to pollen J30.1 Active 21792962 Problem 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 Active 4375740981882 Problem Primary osteoarthritis of left knee M17.12 Active 707454794 Problem Hypercholesterolemia E78.00 Active 09401154 Problem Essential (primary) hypertension I10 Active 46806424 Problem Restless leg syndrome G25.81 Active 16477999 Problem Chronic pain syndrome G89.4 Active 372880869 Problem Perimenopausal vasomotor symptoms N95.1 Active 491756307 Problem Major depressive disorder, recurrent, moderate F33 .1 Active 152004855 ALLERGIES No Information ENCOUNTERS Encounter Location Date Diagnosis [facility] [id number] [place] [address] Jun, [facility] [address] [address] May, Generalized anxiety disorder F41.1 and M ajor depressive disorder, recurrent episode with anxious distress F33.9 [facility] [address] [address] Apr, Major depressive disorder, recurrent, mo derate F33.1 ; Generalized anxiety disorder F41.1 and Dysthymic disorder F34.1 [place] [address] [address] Apr, Chronic pain syndrome G89.4 [place] [address] [address] Apr, Acute pain of right knee M25.561 [place] [address] [address] Apr, [place] [address] [address] Mar, Major depressive disorder, recurrent, mo derate F33.1 ; Generalized anxiety disorder F41.1 and Dysthymic disorder F34.1 [facility] [address] [facility] [id number] [address] [place] [address] Mar, Fluid collection of middle e ar H65.90 and Dizziness R42 [place] [address] [address] Mar, [place] [address] [address] Mar, [place] [address] [address] Mar, Essential (primary) hypertension I10 ; S tage 3 chronic kidney disease N18.3 ; Hypercholesterolemia E78.00 ; Asthma J45.909 ; Recurrent UTI N39.0 ; Status post shoulder surgery Z98.890 and Encounter for immunization Z23 [place] [address] [address] Mar, Chronic pain syndrome G89.4 [place] [address] [address] Feb, [place] [address] [address] Feb, [place] [address] [address] Feb, Oral thrush B37.0 and Sore throat J02.9 [place] [address] [address] Feb, Chronic pain syndrome G89.4 [facility] [address] [address] Jan, [place] [address] [address] Jan, Chronic pain syndrome G89.4 [place] [address] [address] Jan, Hypercholesterolemia E78.00 [place] [address] [address] Jan, [place] [address] [address] Dec, Chronic kidney disease, stage 4 (severe) N18.4 [place] [address] [address] Dec, Major depressive disorder, recurrent, mo derate F33.1 ; Generalized anxiety disorder F41.1 and Dysthymic disorder F34.1 [place] [address] [address] Dec, Generalized anxiety disorder F41.1 and Tae donovan depressive disorder, recurrent episode with anxious distress F33.9 [place] [address] [address] Dec, [place] [address] [address] Dec, [place] [address] [address] Dec, Encounter for immunization Z23 [place] [address] [address] Dec, Diarrhea, unspecified type R19.7 and Hem orrhoids, unspecified hemorrhoid type K64.9 [place] [address] [address] 12 Dec, 2018 Encounter for Medicare annual wellness e xam Z00.00 ; Chronic kidney disease, stage 4 (severe) N18.4 ; Encounter for immunization Z23 ; Major depressive disorder, recurrent, moderate F33.1 ; Atherosclerosis of [place] coronary artery of [place] heart with angina pectoris I25.119 ; Asthma J45.909 ; Hypothyroid E03.9 and Fibromyalgia M79.7 [place] [address] [address] Dec, Chronic pain syndrome G89.4 [place] [address] [address] Nov, Major depressive disorder, recurrent, mo derate F33.1 ; Generalized anxiety disorder F41.1 and Dysthymic disorder F34.1 [place] [address] [address] Nov, [place] [address] [address] Nov, Chronic pain syndrome G89.4 [place] [address] [address] Nov, Restless leg syndrome G25.[address] [address] Nov, Pain in right shoulder M25.511 ; Restles s leg syndrome G25.81 ; Other chronic pain G89.29 ; Screening for breast cancer Z12.39 ; Insomnia G47.00 and Morbid obesity E66.01 [place] [address] [address] Nov, [address] [address] Oct, Major depressive disorder, recurrent, mo derate F33.1 ; Generalized anxiety disorder F41.1 and Dysthymic disorder F34.1 [facility] [address] [id number] [place] [address] Oct, [facility] [address] [address] Oct, Cellulitis of left lower extremity L03.1 16 and Morbid obesity E66.01 [facility] [address] [facility] [id number] [place] [address] Oct, [facility] [address] [address] Oct, [facility] [address] [address] Oct, Generalized anxiety disorder F41.1 and M shiraor depressive disorder, recurrent episode with anxious distress F33.9 [facility] [address] [facility] [id number] [place] [address] Oct, [facility] [address] [address] Oct, Chronic pain syndrome G89.4 [facility] [address] [address] Oct, Chronic pain syndrome G89.4 [facility] [address] [facility] [id number] [address] [place] [address] Oct, UTI symptoms R39.9 ; Acute c ystitis without hematuria N30.00 and Morbid obesity E66.01 [facility] [id number] [place] [address] Oct, [facility] [address] [address] Oct, Chronic pain syndrome G89.4 [facility] [address] [address] Sep, [facility] [address] [address] Sep, Generalized anxiety disorder F41.1 and M ajor depressive disorder, recurrent episode with anxious distress F33.9 [place] [address] [address] 17 Sep, 2018 Chronic kidney disease, stage 4 (severe) N18.4 [place] [address] [address] 2018 Fibromyalgia M79.7 and Chronic pain synd lisseth G89.4 [place] [address] [address] Sep, [address] [place] [address] Sep, Chronic pain syndrome G89.4 [place] [address] [address] Sep, [place] [address] [address] Sep, Chronic pain syndrome G89.4 ; Fibromyalg ia M79.7 and Morbid obesity E66.01 [place] [address] [address] August, Generalized anxiety disorder F41.1 and M ajor depressive disorder, recurrent episode with anxious distress F33.9 [place] [address] [address] August, Fibromyalgia M79.7 [place] [address] [address] August, Restless leg syndrome G25.81 ; Vitamin D deficiency E55.9 ; Urinary tract infection without hematuria, site unspecified N39.0 ; Pain in right shoulder M25.511 ; Other chronic pain G89.29 ; Biceps tendinitis on right M75.21 and Morbid obesity E66.01 [place] [address] [address] Jul, Urinary tract infection without hematuri a, site unspecified N39.0 and Morbid obesity E66.01 [place] [address] [address] Jul, [facility] [address] [address] Jul, [facility] [address] [address] Jul, Fibromyalgia M79.7 [facility] [address] [address] Jul, Acute pain of right shoulder M25.511 [facility] [address] [address] Jul, Acute pain of right shoulder M25.511 and Morbid obesity E66.01 [place] [address] [address] Jun, [place] [address] [address] Jun, Generalized anxiety disorder F41.1 and M shiraor depressive disorder, recurrent episode with anxious distress F33.9 [place] [address] [address] Jun, [place] [address] [address] Jun, Fibromyalgia M79.7 [facility] IN [facility] [address] [facility] [id number] [address] [place] [address] Jun, Acute pain of right shoulder M25.511 ; Acute pain of right hip M25.551 and Morbid obesity E66.01 [place] [address] [address] May, Burning with urination R30.0 ; Vaginal d ischarge N89.8 ; Chronic kidney disease, stage 4 (severe) N18.4 ; Body mass index (BMI) of 40.0-44.9 in adult Z68.41 and Morbid obesity E66.01 [place] [address] [address] May, Fibromyalgia M79.7 [place] [address] [address] May, Generalized anxiety disorder F41.1 and M zion depressive disorder, recurrent episode with anxious distress F33.9 [facility] [address] [address] Apr, [facility] [address] [address] Apr, Fibromyalgia M79.7 [facility] [address] [facility] [id number] [address] [place] [address] Mar, Acute UTI N39.0 and Dysuria R30.0 [facility] [address] [address] 10 Mar, 2018 Fibromyalgia M79.7 [facility] [address] [address] 15 Feb, 2018 [facility] [address] [address] Feb, [facility] [address] [address] Feb, [place] [address] [address] Feb, Fibromyalgia M79.7 [facility] [address] [address] 08 Feb, 2018 Complicated UTI (urinary tract infection ) N39.0 [facility] [address] [address] 07 Feb, 2018 [facility] [address] [address] Jan, Generalized anxiety disorder F41.1 and Tae zion depressive disorder, recurrent episode with anxious distress F33.9 [facility] [address] [facility] [id number] [address] [place] [address] Jan, Acute conjunctivitis of left eye, unspecified acute conjunctivitis type H10.32 [facility] [address] [address] Jan, [place] [address] [address] Jan, Acute non-recurrent maxillary sinusitis J01.00 ; Dysuria R30.0 ; Perimenopausal vasomotor symptoms N95.1 and Fibromyalgia M79.7 [place] [address] [address] Dec, Vitamin D deficiency E55.9 [place] [address] [address] Dec, Vitamin D deficiency E55.9 [place] [address] [address] Dec, Vitamin D deficiency E55.9 [place] [address] [address] Dec, [place] [address] [address] Dec, Fibromyalgia M79.7 [place] [address] [address] Nov, [address] [address] [address] Nov, [address] [address] [address] Nov, [address] [address] [address] Nov, Fibromyalgia M79.7 ; Vision changes H53. 9 ; Chest wall pain R07.89 and Chronic pain syndrome G89.4 [place] [address] [address] Nov, [address] [address] [address] Nov, Rash of hands R21 [address] [address] [address] Nov, Generalized anxiety disorder F41.1 and Tae donovan depressive disorder, recurrent episode with anxious distress F33.9 [place] [id number] [address] Nov, Fibromyalgia M79.7 [facility] [address] [address] Nov, Complicated UTI (urinary tract infection ) N39.0 [facility] [address] [address] Oct, [facility] [address] [address] Oct, Generalized anxiety disorder F41.1 and Tae donovan depressive disorder, recurrent episode with anxious distress F33.9 [place] [address] [address] Oct, [place] [address] [address] Oct, Fibromyalgia M79.7 [place] [address] [address] Sep, Restless leg syndrome G25.81 and Restles s leg G25.81 [place] [address] [address] Sep, [place] [address] [address] Sep, Seasonal allergic rhinitis due to pollen J30.1 ; Screening for breast cancer Z12.31 ; Chest pain at rest R07.9 ; Restless leg syndrome G25.81 ; Essential (primary) hypertension I10 and Depressed F32.9 [place] [address] [address] August, Fibromyalgia M79.7 [facility] [address] [address] August, [facility] [address] [address] August, [place] [address] [address] August, Abnormal chest CT R93.8 [place] [address] [address] August, Generalized anxiety disorder F41.1 and M zion depressive disorder, recurrent episode with anxious distress F33.9 [place] [address] [address] August, Abnormal chest CT R93.8 [place] [address] [address] Jul, [place] [address] [address] Jul, Chronic kidney disease, stage 4 (severe) N18.4 [place] [address] [address] Jul, [place] [address] [address] Jul, Restless leg G25.81 ; Mixed stress and u rge urinary incontinence N39.46 and Fibromyalgia M79.7 [place] [address] [address] Jul, Chronic kidney disease, stage 4 (severe) N18.4 [place] [address] [address] Jun, Orthostatic hypotension I95.1 ; Chronic kidney disease, stage 4 (severe) N18.4 ; Chest wall discomfort R07.89 and Body mass index (BMI) of 40.0- 44.9 in adult Z68.41 [place] [address] [address] Jun, [place] [address] [address] Jun, Orthostatic hypotension I95.1 [place] [address] [address] Jun, [facility] [address] [facility] [id number] [address] [place] [address] Jun, Orthostatic hypotension I95. 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 [facility] [address] [address] May, Chronic kidney disease, stage 4 (severe) N18.4 [facility] [address] [address] May, Chronic kidney disease, stage 4 (severe) N18.4 [facility] [address] [address] May, Abnormal chest [address] R93.8 [facility] [address] [address] May, [facility] [address] [address] May, [facility] [address] [address] May, Generalized anxiety disorder F41.1 and M ajor depressive disorder, recurrent episode with anxious distress F33.9 [facility] [address] [address] May, Mood disorder F39 [facility] [id number] [place] [address] Apr, [facility] [address] [address] Apr, Infected skin lesion L08.[address] rain of right shoulder region, initial encounter S46.911A [place] [address] [address] Apr, Generalized anxiety disorder F41.1 and M ajor depressive disorder, recurrent episode with anxious distress F33.9 [place] [address] [address] Apr, [facility] [address] [address] Apr, Recent urinary tract infection Z87.440 a nd Hypothyroid E03.9 [place] [address] [address] Apr, Generalized anxiety disorder F41.1 and M ajor depressive disorder, recurrent episode with anxious distress F33.9 [place] [id number] [place] [address] Apr, Recent urinary tract infection Z87.440 [facility] [id number] [place] [address] Mar, [facility] [address] [facility] [id number] [address] [place] [address] Mar, Dysuria R30.0 ; Acute cystit is without hematuria N30.00 and BMI 40.0-44.9, adult Z68.41 [facility] [id number] [place] [address] Mar, [place] [address] [address] Mar, [place] [address] [address] Mar, Generalized anxiety disorder F41.1 and Tae donovan depressive disorder, recurrent episode with anxious distress F33.9 [place] [address] [address] Feb, Conjunctivitis, bacterial H10.9 [place] [address] [address] Feb, [facility] [address] [address] Feb, Conjunctivitis, bacterial H1 0.9 [place] [address] [address] Feb, [facility] [place] [address] [address] Feb, Dysuria R30.0 ; Acute cystit is N30.00 and BMI 40.0-44.9, adult Z68.41 [place] [address] [address] Feb, [place] [address] [address] Feb, Generalized anxiety disorder F41.1 and Tae donovan depressive disorder, recurrent episode with anxious distress F33.9 [place] [address] [address] Feb, Mood disorder F39 and BMI 40.0-44.9, feli lt Z68.41 [place] [address] [address] Jan, [place] [address] [address] Jan, [place] [address] [address] Jan, Hypothyroid E03.9 [place] [address] [address] Jan, [place] [address] [address] Jan, Chronic kidney disease, unspecified N18. 9 ; Hypokalemia E87.6 ; Essential (primary) hypertension I10 ; Fibromyalgia M79.7 ; Coronary artery disease involving salam[place] coronary artery of [place] heart, angina presence unspecified I25.10 ; Hypothyroid E03.9 and Encounter for immunization Z23 [place] [address] [address] Jan, Hypothyroid E03.9 [place] [address] [address] Jan, [place] [address] [address] Dec, Vitamin D deficiency E55.9 [place] [address] [address] Dec, Primary osteoarthritis of left knee M17. 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 [place] [address] [address] 19 Dec, 2016 Fibromyalgia M79.7 [place] [address] [address] 18 Dec, 2016 Mood disorder F39 [place] [address] [address] 13 Dec, 2016 [place] [address] [address] 13 Dec, 2016 Generalized anxiety disorder F41.1 and M ajor depressive disorder, recurrent episode with anxious distress F33.9 [place] [address] [address] 11 Dec, 2016 [place] [address] [address] Dec, Streptococcal meningitis G00.2 [facility] [address] [address] Dec, Streptococcal meningitis G00.2 [facility] [id number] [place] [address] Dec, [facility] [address] [address] Dec, Streptococcal meningitis G00.2 [facility] [address] [address] Dec, [facility] [address] [address] Dec, Major depressive disorder, recurrent epi sode with anxious distress F33.9 [place] [address] [address] Nov, Fever, unspecified fever cause R50.9 [place] [id number] [place] [address] Nov, [facility] [address] [address] Nov, Hypothyroid E03.9 [place] [address] [address] Nov, Generalized anxiety disorder F41.1 and M ajor depressive disorder, recurrent episode with anxious distress F33.9 [place] [id number] [place] [address] Nov, [facility] [address] [id number] [place] [id number] Oct, Dental examination Z01.20 [place] [address] [address] Oct, Generalized anxiety disorder F41.1 and M ajor depressive disorder, recurrent episode with anxious distress F33.9 [place] [address] [address] Oct, Chronic kidney disease, stage 4 (severe) N18.4 [place] [address] [address] Oct, [place] [address] [address] Oct, Fibromyalgia M79.7 [place] [address] [address] Oct, [place] [address] [address] Oct, Generalized anxiety disorder F41.1 ; Fady or depressive disorder, recurrent episode with anxious distress F33.9 and Bipolar disorder, current episode manic without psychotic features F31.10 [place] [address] [address] Sep, [place] [address] [address] Sep, [address] [address] Sep, Vitamin D deficiency E55.[address] [address] Sep, Vitamin D deficiency E55.9 [place] [address] [address] Sep, [address] [address] Sep, Chronic kidney disease, stage 4 (severe) N18.4 ; Hypothyroid E03.9 ; Restless leg G25.81 ; Fibromyalgia M79.7 ; Essential (primary) hypertension I10 ; Vitamin D deficiency E55.9 ; Dyspepsia R10.13 ; Anemia in chronic kidney disease D63.1 ; Chronic kidney disease, unspecified N18.9 ; Coronary artery disease involving [place] coronary artery of [place] heart, angina presence unspecified I25.10 ; Screening breast examination Z12.39 and Low back pain M54.[address] [address] August, Generalized anxiety disorder F41.1 and Tae donovan depressive disorder, recurrent episode with anxious distress F33.9 [place] [address] [address] August, Generalized anxiety disorder F41.1 and M zion depressive disorder, recurrent episode with anxious distress F33.9 [place] [address] [address] August, Fibromyalgia M79.7 [place] [address] [address] Jul, Generalized anxiety disorder F41.1 and Tae donovan depressive disorder, recurrent episode with anxious distress F33.9 [place] [address] [address] Jul, Fibromyalgia M79.7 [place] [address] [address] Jul, Generalized anxiety disorder F41.1 [place] [address] [address] May, [place] [address] [address] May, Hypothyroid E03.9 [place] [address] [address] May, Chronic kidney disease, stage 4 (severe) [...] of salam[place]of heart, angina presence unspecified I25.10 [place] [address] [address] May, Vitamin D deficiency, unspecified E55.9 [place] [address] [address] May, Generalized anxiety disorder F41.1 and Tae donovan depressive disorder, recurrent episode with anxious distress F33.9 [place] [address] [address] Apr, Pain in right knee M25.561 and Pain in l eft knee M25.562 [place] [address] [address] Apr, [place] [address] [address] Apr, [place] [address] [address] Apr, [place] [address] [address] Mar, Generalized anxiety disorder F41.1 and Tae donovan depressive disorder, recurrent episode with anxious distress F33.9 [place] [address] [address] Mar, Generalized anxiety disorder F41.1 and M zion depressive disorder, recurrent episode with anxious distress F33.9 [place] [address] [address] Mar, [place] [address] [address] Mar, [place] [address] [address] Mar, [place] [address] [address] Mar, Asthma J45.909 and Fibromyalgia M79.7 [place] [address] [address] Mar, Chronic kidney disease, stage 4 (severe) N18.4 ; Vitamin D deficiency E55.9 and Essential (primary) hypertension I10 [place] [address] [address] Feb, [facility] [address] [address] Feb, Dysuria R30.0 ; Mixed stress and urge ur inary incontinence N39.46 ; Fibromyalgia M79.7 and Chronic kidney disease, stage IV (severe) N18.4 [facility] [address] [address] Feb, Chronic kidney disease, stage 4 (severe) N18.4 [facility] [address] [address] Feb, Chronic kidney disease, stage 4 (severe) N18.4 [facility] [address] [address] Feb, [facility] [address] [address] Feb, Vitamin D deficiency, unspecified E55.9 [facility] [address] [address] Jan, [facility] [address] [address] Jan, [facility] [address] [address] 30 Dec, 2015 [facility] [address] [address] Dec, Chronic kidney disease, stage 4 (severe) N18.4 [facility] [address] [address] Dec, Dysthymic disorder F34.1 and Generalized anxiety disorder F41.1 [facility] [address] [address] 27 Dec, 2015 [facility] [address] [address] 26 Dec, 2015 [facility] [address] [address] Dec, Dysthymic disorder F34.1 and Generalized anxiety disorder F41.1 [place] [address] [address] Dec, Dysuria R30.0 ; Chronic kidney disease, stage 4 (severe) N18.4 ; Hypertension I10 ; Dyspepsia R10.13 ; Yeast dermatitis B37.2 ; Palpitations R00.2 ; Hypothyroid E03.9 ; Functional diarrhea K59.1 and Other seasonal allergic rhinitis J30.2 [facility] [address] [place] [address] Dec, [facility] [address] [address] Nov, Dysuria R30.0 and Stress inc ontinence N39.3 [place] [address] [address] Nov, [place] [address] [address] Nov, [place] [address] [address] Nov, Osteoarthritis of knees, bilateral M17.0 [place] [address] [address] Nov, Dysthymic disorder F34.1 and Generalized anxiety disorder F41.1 [place] [address] [address] Nov, [place] [address] [address] Nov, [place] [address] [address] Nov, Urgency of urination R39.15 [place] [address] [address] Nov, [place] [address] [address] Nov, Chronic kidney disease, stage 4 (severe) N18.4 [place] [address] [address] Oct, Hypertension I10 ; Coronary artery disea se involving salamatof coronary artery of salamatof heart, angina presence unspecified I25.10 ; Palpitations R00.2 ; Hypothyroid E03.9 ; Right foot pain M79.671 ; Functional diarrhea K59.1 and Other seasonal allergic rhinitis J30.2 [place] [address] [address] Oct, Dysthymic disorder F34.1 and Generalized anxiety disorder F41.1 [place] [address] [address] Sep, [place] [address] [address] Sep, [place] [address] [address] Sep, [place] [address] [address] Sep, [place] [address] [address] Sep, [address] [address] Sep, Dysthymic disorder F34.1 and Generalized anxiety disorder F41.1 [place] [address] [address] Sep, Asthma with acute exacerbation in adult J45.901 ; Dysuria R30.0 ; Chronic kidney disease, stage 4 (severe) N18.4 and History of anemia Z86.2 [place] [address] [address] Sep, Generalized anxiety disorder F41.1 and D ysthymic disorder F34.[address] [address] August, Screening breast examination Z12.39 and Acute recurrent maxillary sinusitis J01.01 [place] [address] [address] August, Osteoarthritis of knees, bilateral M17.0 [place] [address] [address] August, Chronic kidney disease, stage 4 (severe) N18.4 ; Acute non-recurrent maxillary sinusitis J01.00 ; Urinary problem R39.89 ; Bowel habit changes R19.4 ; Functional diarrhea K59.1 and History of colon polyps Z86.010 [place] [address] [address] Jul, Dysthymic disorder F34.1 and Generalized anxiety disorder F41.1 [place] [address] [address] Jul, [place] [address] [address] Jul, Dysthymic disorder F34.1 ; Generalized a nxiety disorder F41.1 and [facility] use of drug Z79.899 [place] [address] [address] Jul, [place] [address] [address] Jun, [place] [address] [address] Jun, [place] [address] [address] May, [place] [address] [address] May, Dysthymic disorder F34.1 and Generalized anxiety disorder F41.1 [place] [address] [address] Apr, Kidney disease N28.9 [place] [address] [address] Apr, Generalized anxiety disorder F41.1 and D ysthymic disorder F34.1 [place] [address] [address] Apr, Chronic kidney disease, stage 4 (severe) N18.4 [place] [address] [address] Apr, Generalized anxiety disorder F41.1 ; Fady or depression, recurrent F33.9 and Sleep disturbance G47.9 [place] [address] [address] Mar, Generalized anxiety disorder F41.1 and D ysthymic disorder F34.[address] [address] Mar, Generalized anxiety disorder F41.1 ; 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 and Insomnia G47.[address] [address] Mar, [place] [address] [address] Mar, [address] [address] Mar, Osteoarthritis of knees, bilateral M17.[address] [address] Mar, Hypertension I10 ; Hypothyroid E03.9 ; D ysthymic disorder F34.1 ; Chronic kidney disease, stage 4 (severe) N18.4 and Nausea & vomiting R11.[address] [address] Mar, Generalized anxiety disorder F41.1 ; 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 and Insomnia G47.00 [place] [address] [address] Mar, Dehydration E86.0 ; Chronic kidney disea se, stage 4 (severe) N18.4 and Nausea & vomiting R11.2 [facility] [address] [facility] [id number] [address] [place] [address] Mar, Gastroenteritis K52.9 [facility] [address] [address] Mar, [place] [address] [address] Mar, [place] [address] [address] Feb, Dysthymic disorder F34.1 and Generalized anxiety disorder F41.[address] [address] Jan, UTI (urinary tract infection) N39.0 ; As thma J45.909 ; Coronary artery disease involving salamatof coronary artery of salam[place] heart, angina presence unspecified I25.10 ; Hypertension I10 ; Hypothyroid E03.9 ; Vitamin D deficiency E55.9 ; Insomnia G47.00 ; Palpitations R00.2 ; Depressed F32.9 ; Restless leg G25.81 and Anxiety F41.[address] [address] Jan, Dysthymic disorder F34.1 and Generalized anxiety disorder F41.[address] [address] Jan, [address] [address] Dec, [address] [address] Dec, Alkalosis 276.3 ; Chronic kidney disease , Stage IV (severe) 585.4 ; Hyperpotassemia 276.7 ; Secondary hyperparathyroidism, renal 588.81 ; Proteinuria 791.0 ; Unspecified vitamin D deficiency 268.9 ; Anemia in chronic kidney disease 285.21 ; Other and unspecified hyperlipidemia 272.4 ; Hypertension, essential, benign 401.1 and Chronic kidney disease (CKD), stage III (moderate) 585.3 [place] [address] [address] Dec, [address] [address] Dec, Depressive disorder, not elsewhere class ified 311 and Generalized anxiety disorder 300.[address] [address] Dec, [place] [address] [address] Dec, [address] [address] Nov, Depressive disorder, not elsewhere class ified 311 and Generalized anxiety disorder 300.[address] [address] Nov, Arthritis of both knees 716.[address] [address] Nov, PAF (paroxysmal atrial fibrillation) 427 .31 ; CAD (coronary artery disease) 414.00 ; Chest pain 786.50 and Chronic kidney disease (CKD) stage G4/A1, severely decreased glomerular filtration rate (GFR) between 15-29 mL/min/1.73 square meter and albuminuria creatinine ratio less than 30 mg/g 585.[address] [address] Oct, Coronary atherosclerosis of unspecified type of vessel, salamatof or graft 414.00 ; Chronic kidney disease, Stage IV (severe) 585.4 ; Hypertension 401.9 and Edema 782.[address] [address] Oct, Depressive disorder, not elsewhere class ified 311 and Generalized anxiety disorder 300.[address] [address] Oct, Depressive disorder, not elsewhere class ified 311 and Generalized anxiety disorder 300.[address] [id number] [place] [address] Oct, [facility] [address] [address] Oct, [facility] [address] [address] Sep, [facility] [address] [address] Sep, Chronic kidney disease, Stage IV (severe ) 585.[address] [address] Sep, [address] [address] Sep, Coronary atherosclerosis of unspecified type of vessel, salamatof or graft 414.00 ; Hypertension 401.9 ; Edema 782.3 and Hypothyroidism 244.[address] [address] Sep, Coronary atherosclerosis of unspecified type of vessel, salamatof or graft 414.00 ; Hypertension 401.9 ; Fibromyalgia 729.1 ; Edema 782.3 ; Hypothyroidism 244.9 and Anemia 285.[address] [address] Sep, Anxiety disorder, unspecified 300.00 and Depressive disorder, not elsewhere classified [address] [address] Sep, [facility] [address] [place] [address] August, Generalized anxiety disorder 300.[address] [address] August, Closed fracture of lateral malleolus [address] [address] Jul, [address] [address] Jul, [facility] [place] [facility] [address] [id number] [place] [address] Jun, [facility] [place] [facility] [address] [id number] [place] [address] Jun, [facility] [place] [facility] [address] [id number] [place] [address] Jun, [facility] [place] [facility] [address] [id number] [place] [address] Jun, 2014 [facility] [place] [facility] [address] [id number] [place] [address] Jun, [facility] [place] [facility] [address] [id number] [place] [address] Jun, [facility] [place] [facility] [address] [id number] [place] [address] 19 May, 2014 [facility] [place] [facility] [address] [id number] [place] [address] 19 May, 2014 [facility] [place] [facility] [address] [id number] [place] [address] 18 May, 2014 [facility] [place] [facility] [address] [id number] [place] [address] 18 May, 2014 [facility] [place] [facility] [address] [id number] [place] [address] 16 May, 2014 [facility] [place] [facility] [address] [id number] [place] [address] 16 May, 2014 [facility] [place] [facility] [address] [id number] [place] [address] 13 May, 2014 [facility] [place] [facility] [address] [id number] [place] [address] 13 May, 2014 [facility] [place] [facility] [address] [id number] [place] [address] 10 May, 2014 [facility] [place] [facility] [address] [id number] [place] [address] 10 May, 2014 [facility] [place] [facility] [address] [facility] [id number] [place] [address] Apr, [facility] [place] [facility] [address] [facility] [id number] [place] [address] Apr, [facility] [place] [facility] [address] [id number] [place] [address] Mar, [facility] [place] [facility] [address] [id number] [place] [address] Mar, [facility] [place] [facility] [address] [id number] [place] [address] Mar, [facility] [place] [facility] [address] [id number] [place] [address] Mar, [facility] [place] [facility] [address] [id number] [place] [address] 15 Mar, 2014 [facility] [place] [facility] [address] [id number] [place] [address] 15 Mar, 2014 [facility] [place] [facility] [address] [id number] [place] [address] 15 Mar, 2014 [facility] [place] [facility] [address] [id number] [place] [address] Feb, [facility] [place] [facility] [address] [id number] [place] [address] Feb, [facility] [place] [facility] [address] [id number] [place] [address] Feb, [facility] [place] [facility] [address] [id number] [place] [address] Jan, [facility] [place] [facility] [address] [id number] [place] [address] Jan, [facility] [place] [facility] [address] [id number] [place] [address] 20 Jan, 2014 [facility] [place] [facility] [address] [id number] [place] [address] 20 Jan, 2014 [facility] [place] [facility] [address] [id number] [place] [address] Jan, [facility] [place] [facility] [address] [facility] [id number] [place] [address] Jan, [facility] [place] [facility] [address] [facility] [id number] [place] [address] Jan, [facility] [place] [facility] [address] [facility] [id number] [place] [address] Jan, [facility] [place] [facility] [address] [facility] [id number] [place] [address] Jan, [facility] [place] [facility] [address] [facility] [id number] [place] [address] Jan, [facility] [place] [facility] [address] [id number] [place] [address] Nov, [facility] [place] [facility] [address] [id number] [place] [address] Nov, [facility] [place] [facility] [address] [id number] [place] [address] Nov, [facility] [place] [facility] [address] [id number] [place] [address] Oct, [facility] [place] [facility] [address] [id number] [place] [address] Oct, [facility] [place] [facility] [address] [id number] [place] [address] Oct, [facility] [place] [facility] [address] [id number] [place] [address] Oct, [facility] [place] [facility] [address] [id number] [place] [address] Oct, [facility] [place] [facility] [address] [facility] [id number] [place] [address] Oct, [facility] [place] [facility] [address] [id number] [place] [address] Oct, [facility] [place] [facility] [address] [id number] [place] [address] Oct, [facility] [place] [facility] [address] [id number] [place] [address] Oct, [facility] [place] [facility] [address] [facility] [id number] [place] [address] Sep, [facility] [place] [facility] [address] [id number] [place] [address] Sep, [facility] [place] [facility] [address] [id number] [place] [address] Sep, [facility] [place] [facility] [address] [id number] [place] [address] Sep, [facility] [place] [facility] [address] [id number] [place] [address] Sep, [facility] [place] [facility] [address] [id number] [place] [address] Sep, [facility] [place] [facility] [address] [id number] [place] [address] Sep, [facility] [place] [facility] [address] [id number] [place] [address] Sep, [facility] [place] [facility] [address] [id number] [place] [address] Sep, [facility] [place] [facility] [address] [id number] [place] [address] August, [facility] [place] [facility] [address] [id number] [place] [address] August, [facility] [place] [facility] [address] [id number] [place] [address] August, [facility] [place] [facility] [address] [id number] [place] [address] August, [facility] [place] [facility] [address] [id number] [place] [address] August, [facility] [place] [facility] [address] [id number] [place] [address] August, [facility] [place] [facility] [address] [id number] [place] [address] Jul, [facility] [place] [facility] [address] [id number] [place] [address] 11 Jul, 2013 [facility] [place] [facility] [address] [facility] [id number] [place] [address] 08 Jul, 2013 [facility] [place] [facility] [address] [id number] [place] [address] 08 Jul, 2013 [facility] [place] [facility] [address] [id number] [place] [address] Jul, [facility] [place] [facility] [address] [id number] [place] [address] Jul, [facility] [place] [facility] [address] [id number] [place] [address] Jun, [facility] [place] [facility] [address] [id number] [place] [address] Jun, [facility] [place] [facility] [address] [id number] [place] [address] May, [facility] [place] [facility] [address] [id number] [place] [address] May, [facility] [place] [facility] [address] [id number] [place] [address] May, [facility] [place] [facility] [address] [id number] [place] [address] May, [facility] [place] [facility] [address] [id number] [place] [address] Apr, [facility] [place] [facility] [address] [id number] [place] [address] Apr, [facility] [place] [facility] [address] [id number] [place] [address] Mar, [facility] [place] [facility] [address] [id number] [place] [address] Mar, [facility] [place] [facility] [address] [id number] [place] [address] Mar, [facility] [place] [facility] [address] [id number] [place] [address] Mar, [facility] [place] [facility] [address] [id number] [place] [address] Mar, [facility] [place] [facility] [address] [id number] [place] [address] Mar, [facility] [place] [facility] [address] [id number] [place] [address] Feb, [facility] [place] [facility] [address] [id number] [place] [address] Feb, [facility] [place] [facility] [address] [id number] [place] [address] Feb, [facility] [place] [facility] [address] [id number] [place] [address] Feb, [facility] [place] [facility] [address] [id number] [place] [address] Feb, [facility] [place] [facility] [address] [id number] [place] [address] Feb, [facility] [place] [facility] [address] [id number] [place] [address] Jan, [facility] [place] [facility] [address] [id number] [place] [address] 24 Jan, 2013 [facility] [place] [facility] [address] [id number] [place] [address] Jan, [facility] [place] [facility] [address] [id number] [place] [address] Jan, [facility] [place] [facility] [address] [id number] [place] [address] 08 Jan, 2013 [facility] [place] [facility] [address] [id number] [place] [address] 04 Jan, 2013 [facility] [place] [facility] [address] [id number] [place] [address] 12 Dec, 2012 [facility] [place] [facility] [address] [id number] [place] [address] 09 Dec, 2012 [facility] [place] [facility] [address] [id number] [place] [address] Nov, [facility] [place] [facility] [address] [id number] [place] [address] Nov, [facility] [place] [facility] [address] [facility] [id number] [place] [address] Oct, [facility] [place] [address] [id number] [place] [address] Oct, [facility] [place] [address] [id number] [place] [address] Oct, [facility] [place] [address] [facility] [id number] [place] [address] Oct, [facility] [address] [id number] [place] [address] Oct, [facility] [address] [id number] [place] [address] Oct, [facility] [address] [id number] [place] [address] Sep, [facility] [address] [id number] [place] [address] Sep, [facility] [address] [id number] [place] [address] Sep, [facility] [place] [address] [id number] [place] [address] Sep, [facility] [address] [id number] [place] [address] August, [facility] [address] [facility] [id number] [place] [address] August, [facility] [address] [id number] [place] [address] August, [facility] [place] [address] [id number] [place] [address] August, [facility] [address] [id number] [place] [address] August, [facility] [place] [address] [id number] [place] [address] Jul, [facility] [address] [id number] [place] [address] Jul, [facility] [address] [id number] [place] [address] 15 Jul, 2012 [facility] [address] [id number] [place] [address] Jul, [facility] [address] [id number] [place] [address] Jul, [facility] [address] [id number] [place] [address] Jul, [facility] [address] [id number] [place] [address] Jul, [facility] [address] [id number] [place] [address] Jul, [facility] [address] [id number] [place] [address] Jul, [facility] [address] [id number] [place] [address] Jul, [facility] [id number] [place] [id number] Jun, [facility] [address] [id number] [place] [address] Jun, [facility] [address] [id number] [place] [address] Jun, [facility] [address] [id number] [place] [address] Jun, [facility] [address] [id number] [place] [address] Jun, [facility] [address] [id number] [place] [address] May, [facility] [address] [id number] [place] [address] May, [facility] [address] [id number] [place] [address] May, [facility] [address] [id number] [place] [address] Apr, [facility] [address] [id number] [place] [address] Apr, [facility] [address] [id number] [place] [address] Apr, [facility] [address] [facility] [id number] [place] [address] Apr, [facility] [address] [id number] [place] [address] Apr, [facility] [address] [id number] [place] [address] Apr, [facility] [id number] [place] [address] Mar, [facility] [address] [id number] [place] [address] Mar, [facility] [address] [id number] [place] [address] Mar, [facility] [address] [id number] [place] [address] Mar, [facility] [id number] [place] [address] Feb, [facility] [address] [id number] [place] [address] Feb, [facility] [address] [id number] [place] [address] Feb, [facility] [address] [id number] [place] [address] Feb, [facility] [address] [id number] [place] [address] Feb, [facility] [address] [id number] [place] [address] Feb, [facility] [address] [id number] [place] [address] Feb, [facility] [address] [id number] [place] [address] Feb, [facility] [address] [id number] [place] [address] Feb, [facility] [address] [id number] [place] [address] Feb, [facility] [address] [id number] [place] [address] Feb, [facility] [address] [id number] [place] [address] Feb, [facility] [address] [id number] [place] [address] Feb, [facility] [address] [id number] [place] [address] Feb, [facility] [address] [id number] [place] [address] Feb, [facility] [address] [id number] [place] [address] Feb, [facility] [address] [id number] [place] [address] Jan, [facility] [id number] [place] [address] Jan, [facility] [address] [id number] [place] [address] Jan, [facility] [id number] [place] [address] Jan, [facility] [address] [id number] [place] [address] Jan, [facility] [address] [id number] [place] [address] Jan, [facility] [address] [id number] [place] [address] 25 Jan, 2012 [facility] [address] [id number] [place] [address] 16 Jan, 2012 [facility] [address] [id number] [place] [address] 16 Jan, 2012 [facility] [address] [id number] [place] [address] 15 Jan, 2012 [facility] [address] [id number] [place] [address] 15 Jan, 2012 [facility] [address] [id number] [place] [address] Jan, [facility] [address] [id number] [place] [address] 26 Sep, 2011 [facility] [address] [id number] [place] [address] 26 Sep, 2011 [facility] [address] [id number] [place] [address] 24 Sep, 2011 [facility] [address] [id number] [place] [address] 23 Sep, 2011 [facility] [address] [id number] [place] [address] 22 Sep, 2011 [facility] [address] [id number] [place] [address] 21 Sep, 2011 [facility] [address] [id number] [place] [address] 20 Sep, 2011 [facility] [address] [id number] [place] [address] 20 Sep, 2011 [facility] [address] [id number] [place] [address] 07 Sep, 2011 [facility] [address] [id number] [place] [address] 06 Sep, 2011 [facility] [address] [id number] [place] [address] 06 Sep, 2011 [facility] [address] [id number] [facility] [address] 05 Dec, 2011 [facility] [address] [facility] [id number] [facility] [address] Nov, [facility] [address] [id number] [place] [address] Nov, [facility] [address] [id number] [facility] [address] Nov, [facility] [address] [facility] [id number] [place] [address] Nov, [facility] [address] [id number] [place] [address] Nov, [facility] [address] [id number] [place] [address] Nov, [facility] [address] [id number] [place] [address] Nov, [facility] [address] [id number] [place] [address] Nov, [facility] [address] [id number] [place] [address] Oct, [facility] [address] [id number] [place] [address] Oct, [facility] [address] [id number] [place] [address] Oct, [facility] [address] [id number] [place] [address] Oct, [facility] [address] [id number] [place] [address] Oct, [facility] [address] [id number] [place] [address] 16 Oct, 2011 [facility] [address] [id number] [place] [address] Oct, [facility] [address] [id number] [place] [address] Sep, [facility] [address] [id number] [place] [address] Sep, [facility] [address] [id number] [place] [address] August, [facility] [address] [id number] [place] [address] August, [facility] [address] [id number] [place] [address] August, [facility] [address] [id number] [place] [address] August, [facility] [address] [id number] [place] [address] Jul, [facility] [address] [id number] [place] [address] Jul, [facility] [address] [id number] [place] [address] Jul, [facility] [address] [id number] [place] [address] Jul, [facility] [address] [id number] [place] [address] Jul, [facility] [address] [id number] [place] [address] Jul, [facility] [address] [id number] [place] [address] Jul, [facility] [address] [id number] [place] [address] Jul, [facility] [address] [id number] [place] [address] Jul, [facility] [address] [id number] [place] [address] Jun, [facility] [address] [id number] [place] [address] Jun, [facility] [address] [id number] [place] [address] 15 Jun, 2011 [facility] [address] [id number] [place] [address] 14 Jun, 2011 [facility] [address] [id number] [place] [address] 12 Jun, 2011 [facility] [address] [id number] [place] [address] Jun, [facility] [address] [id number] [place] [address] Jun, [facility] [address] [id number] [place] [address] May, [facility] [address] [id number] [place] [address] 24 May, 2011 [facility] [address] [id number] [place] [address] May, [facility] [address] [id number] [place] [address] May, [facility] [address] [id number] [place] [address] May, [facility] [address] [id number] [place] [address] Apr, [facility] [address] [id number] [place] [address] Apr, [facility] [address] [id number] [place] [address] Apr, [facility] [address] [id number] [place] [address] Apr, [facility] [address] [id number] [place] [address] Apr, [facility] [address] [id number] [place] [address] Mar, [facility] [address] [id number] [place] [address] Mar, [facility] [address] [id number] [place] [address] Mar, [facility] [address] [id number] [place] [address] Mar, [facility] [address] [id number] [place] [address] Mar, [facility] [address] [id number] [place] [address] Mar, [facility] [address] [id number] [place] [address] Mar, [facility] [address] [id number] [place] [address] Feb, [facility] [address] [id number] [place] [address] Feb, [facility] [address] [id number] [place] [address] Feb, [facility] [address] [id number] [place] [address] Feb, [facility] [address] [id number] [place] [address] Jan, [facility] [address] [id number] [place] [address] Jan, [facility] [address] [id number] [place] [address] Jan, [facility] [address] [id number] [place] [address] Jan, [facility] [address] [id number] [place] [address] Nov, [facility] [address] [id number] [place] [address] Mar, [facility] [address] [id number] [place] [address] Mar, [facility] [address] [id number] [place] [address] Mar, [facility] [id number] [place] [address] Mar, [facility] [address] [address] Mar, [facility] [address] [address] Mar, [facility] [address] [address] Feb, [facility] [address] [address] Feb, [facility] [address] [address] Jan, [facility] [address] [address] Jan, [facility] [address] [address] Jan, IMMUNIZATIONS No Known Immunizations SOCIAL HISTORY [...] History CPAP Noncompliance_ Dr. Madden advises a [employer] driving. Medical History Bacterial meningitis 12/2016 Medical [...] 2007 Surgical History Bladder surgery [facility] 03/2016 Surgical History Neurotransmitter placed 10/2017 Surgical [...]
--- OUTSIDE RECORDS SUMMARY | 2019-08-01 10:02 | XMS REPORT ---
Author Author Lola CORLEY Organization [facility] Address [address] [place] [address] Care Team Providers Care Wet Process Miller Head Assistant Name Role Phone BARNEY MAKSIM Unavailable PROBLEMS Type Condition ICD9-CM Code [id number] Code Onset Dates Condition S tatus SNOMED Code Problem Generalized anxiety disorder F41.1 A ctive 72124423 Problem Low back pain M54.5 Active 315326 009 Problem Insomnia G47.00 Active 080776987 Problem Hypothyroid E03.9 Active 98322254 Problem Palpitations R00.2 Active 2192979 2 Problem Asthma J45.909 Active 528009015 Problem Mixed stress and urge urinary incontinence N39.46 Active 124530749 Problem Fibromyalgia M79.7 Active 0752501 05 Problem Stage 3 chronic kidney disease N18.3 Active 285828301 Problem Body mass index (BMI) of 40.0-44.9 in adult Z68.41 Active 069798663 Problem Seasonal allergic rhinitis due to pollen J30.1 Active 17795133 Problem 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 Active 1155668679593 Problem Primary osteoarthritis of left knee M17.12 Active 149711754 Problem Hypercholesterolemia E78.00 Active 42542858 Problem Essential (primary) hypertension I10 Active 82759046 Problem Restless leg syndrome G25.81 Active 23977520 Problem Chronic pain syndrome G89.4 Active 182508759 Problem Perimenopausal vasomotor symptoms N95.1 Active 964791836 Problem Major depressive disorder, recurrent, moderate F33 .1 Active 331334187 ALLERGIES No Information ENCOUNTERS Encounter Location Date Diagnosis [facility] [address] [id number] [place] [address] Jun, [facility] [address] [facility] [place] [address] May, [facility] [address] [address] Apr, Major depressive disorder, recurrent, mo derate F33.1 ; Generalized anxiety disorder F41.1 and Dysthymic disorder F34.1 [facility] [address] [address] Apr, Chronic pain syndrome G89.4 [facility] [address] [address] Apr, Acute pain of right knee M25.561 [place] [address] [address] Apr, [place] [address] [address] Mar, Major depressive disorder, recurrent, mo derate F33.1 ; Generalized anxiety disorder F41.1 and Dysthymic disorder F34.1 [facility] [address] [facility] [id number] [address] [place] [address] Mar, Fluid collection of middle e ar H65.90 and Dizziness R42 [place] [address] [address] Mar, [place] [address] [address] Mar, [place] [address] [address] Mar, Essential (primary) hypertension I10 ; S tage 3 chronic kidney disease N18.3 ; Hypercholesterolemia E78.00 ; Asthma J45.909 ; Recurrent UTI N39.0 ; Status post shoulder surgery Z98.890 and Encounter for immunization Z23 [place] [address] [address] Mar, Chronic pain syndrome G89.4 [facility] [address] [address] Feb, [place] [address] [address] Feb, [place] [address] [address] Feb, Oral thrush B37.0 and Sore throat J02.9 [place] [address] [address] Feb, Chronic pain syndrome G89.4 [place] [address] [address] Jan, [place] [address] [address] Jan, Chronic pain syndrome G89.4 [place] [address] [address] Jan, Hypercholesterolemia E78.00 [place] [address] [address] Jan, [place] [address] [address] Dec, Chronic kidney disease, stage 4 (severe) N18.4 [place] [address] [address] Dec, Major depressive disorder, recurrent, mo derate F33.1 ; Generalized anxiety disorder F41.1 and Dysthymic disorder F34.1 [place] [address] [address] Dec, Generalized anxiety disorder F41.1 and M shiraor depressive disorder, recurrent episode with anxious distress F33.9 [place] [address] [address] Dec, [place] [address] [address] Dec, [place] [address] [address] Dec, Encounter for immunization Z23 [place] [address] [address] Dec, Diarrhea, unspecified type R19.7 and Hem orrhoids, unspecified hemorrhoid type K64.9 [place] [address] [address] 12 Dec, 2018 Encounter for Medicare annual wellness e xam Z00.00 ; Chronic kidney disease, stage 4 (severe) N18.4 ; Encounter for immunization Z23 ; Major depressive disorder, recurrent, moderate F33.1 ; Atherosclerosis of [place] coronary artery of [place] heart with angina pectoris I25.119 ; Asthma J45.909 ; Hypothyroid E03.9 and Fibromyalgia M79.7 [place] [address] [address] Dec, Chronic pain syndrome G89.4 [place] [address] [address] Nov, Major depressive disorder, recurrent, mo derate F33.1 ; Generalized anxiety disorder F41.1 and Dysthymic disorder F34.1 [place] [address] [address] Nov, [place] [address] [address] Nov, Chronic pain syndrome G89.4 [place] [address] [address] Nov, Restless leg syndrome G25.[address] [address] Nov, Pain in right shoulder M25.511 ; Restles s leg syndrome G25.81 ; Other chronic pain G89.29 ; Screening for breast cancer Z12.39 ; Insomnia G47.00 and Morbid obesity E66.01 [place] [address] [address] Nov, [address] [address] Oct, Major depressive disorder, recurrent, mo derate F33.1 ; Generalized anxiety disorder F41.1 and Dysthymic disorder F34.1 [facility] [address] [facility] [place] [address] Oct, [facility] [address] [address] Oct, Cellulitis of left lower extremity L03.1 16 and Morbid obesity E66.01 [facility] [address] [facility] [id number] [address] [address] Oct, [facility] [address] [address] Oct, [facility] [address] [address] Oct, Generalized anxiety disorder F41.1 and Tae donovan depressive disorder, recurrent episode with anxious distress F33.9 [facility] [address] [facility] [id number] [place] [address] Oct, [facility] [address] [address] Oct, Chronic pain syndrome G89.4 [facility] [address] [address] Oct, Chronic pain syndrome G89.4 [facility] [address] [facility] [id number] [address] [place] [address] Oct, UTI symptoms R39.9 ; Acute c ystitis without hematuria N30.00 and Morbid obesity E66.01 [facility] [address] [place] [id number] [place] [address] Oct, [facility] [address] [address] Oct, Chronic pain syndrome G89.4 [facility] [address] [address] Sep, [facility] [address] [address] Sep, Generalized anxiety disorder F41.1 and M zion depressive disorder, recurrent episode with anxious distress F33.9 [place] [address] [address] 17 Sep, 2018 Chronic kidney disease, stage 4 (severe) N18.4 [facility] [address] [address] 2018 Fibromyalgia M79.7 and Chronic pain synd lisseth G89.4 [place] [address] [address] Sep, [address] [place] [address] Sep, Chronic pain syndrome G89.4 [place] [address] [address] Sep, [place] [address] [address] Sep, Chronic pain syndrome G89.4 ; Fibromyalg ia M79.7 and Morbid obesity E66.01 [place] [address] [address] August, Generalized anxiety disorder F41.1 and Tae donovan depressive disorder, recurrent episode with anxious distress F33.9 [place] [address] [address] August, Fibromyalgia M79.7 [place] [address] [address] August, Restless leg syndrome G25.81 ; Vitamin D deficiency E55.9 ; Urinary tract infection without hematuria, site unspecified N39.0 ; Pain in right shoulder M25.511 ; Other chronic pain G89.29 ; Biceps tendinitis on right M75.21 and Morbid obesity E66.01 [place] [address] [address] Jul, Urinary tract infection without hematuri a, site unspecified N39.0 and Morbid obesity E66.01 [place] [address] [address] Jul, [facility] [address] [address] Jul, [facility] [address] [address] Jul, Fibromyalgia M79.7 [facility] [address] [address] Jul, Acute pain of right shoulder M25.511 [facility] [address] [address] Jul, Acute pain of right shoulder M25.511 and Morbid obesity E66.01 [place] [address] [address] Jun, [place] [address] [address] Jun, Generalized anxiety disorder F41.1 and M ajor depressive disorder, recurrent episode with anxious distress F33.9 [place] [address] [address] Jun, [place] [address] [address] Jun, Fibromyalgia M79.7 [facility] [address] [facility] [id number] [address] [place] [address] Jun, Acute pain of right shoulder M25.511 ; Acute pain of right hip M25.551 and Morbid obesity E66.01 [facility] [address] [address] May, Burning with urination R30.0 ; Vaginal d ischarge N89.8 ; Chronic kidney disease, stage 4 (severe) N18.4 ; Body mass index (BMI) of 40.0-44.9 in adult Z68.41 and Morbid obesity E66.01 [facility] [address] [address] 07 May, 2018 Fibromyalgia M79.7 [facility] [address] [id number] [place] [address] 06 May, 2018 Generalized anxiety disorder F41.1 and M zion depressive disorder, recurrent episode with anxious distress F33.9 [facility] [address] [place] [id number] [place] [address] Apr, [facility] [address] [address] Apr, Fibromyalgia M79.7 [facility] [address] [facility] [id number] [address] [place] [address] 14 Mar, 2018 Acute UTI N39.0 and Dysuria R30.0 [facility] [address] [address] 10 Mar, 2018 Fibromyalgia M79.7 [facility] [address] [address] 15 Feb, 2018 [facility] [address] [address] 14 Feb, 2018 [facility] [address] [address] Feb, [facility] [address] [address] Feb, Fibromyalgia M79.7 [facility] [address] [address] 08 Feb, 2018 Complicated UTI (urinary tract infection ) N39.0 [facility] [address] [address] 07 Feb, 2018 [facility] [address] [address] Jan, Generalized anxiety disorder F41.1 and Tae donovan depressive disorder, recurrent episode with anxious distress F33.9 [facility] [address] [facility] [id number] [address] [place] [address] Jan, Acute conjunctivitis of left eye, unspecified acute conjunctivitis type H10.32 [place] [address] [address] Jan, [place] [address] [address] Jan, Acute non-recurrent maxillary sinusitis J01.00 ; Dysuria R30.0 ; Perimenopausal vasomotor symptoms N95.1 and Fibromyalgia M79.7 [place] [address] [address] Dec, Vitamin D deficiency E55.9 [place] [address] [address] Dec, Vitamin D deficiency E55.9 [place] [address] [address] Dec, Vitamin D deficiency E55.9 [place] [address] [address] Dec, [place] [address] [address] Dec, Fibromyalgia M79.7 [place] [address] [address] Nov, [place] [address] [address] Nov, [place] [address] [address] Nov, [place] [address] [address] Nov, Fibromyalgia M79.7 ; Vision changes H53. 9 ; Chest wall pain R07.89 and Chronic pain syndrome G89.4 [place] [address] [address] Nov, [place] [address] [address] Nov, Rash of hands R21 [place] [address] [address] Nov, Generalized anxiety disorder F41.1 and Tae donovan depressive disorder, recurrent episode with anxious distress F33.9 [facility] [address] [address] Nov, Fibromyalgia M79.7 [facility] [address] [address] Nov, Complicated UTI (urinary tract infection ) N39.0 [facility] [address] [address] Oct, [facility] [address] [address] Oct, Generalized anxiety disorder F41.1 and Tae donovan depressive disorder, recurrent episode with anxious distress F33.9 [place] [address] [address] Oct, [place] [address] [address] Oct, Fibromyalgia M79.7 [facility] [address] [address] Sep, Restless leg syndrome G25.81 and Restles s leg G25.81 [facility] [address] [address] Sep, [place] [address] [address] Sep, Seasonal allergic rhinitis due to pollen J30.1 ; Screening for breast cancer Z12.31 ; Chest pain at rest R07.9 ; Restless leg syndrome G25.81 ; Essential (primary) hypertension I10 and Depressed F32.9 [facility] [address] [address] August, Fibromyalgia M79.7 [facility] [address] [address] August, [facility] [address] [address] August, [place] [address] [address] August, Abnormal chest CT R93.8 [place] [address] [address] August, Generalized anxiety disorder F41.1 and M shiraor depressive disorder, recurrent episode with anxious distress F33.9 [place] [address] [address] August, Abnormal chest CT R93.8 [place] [address] [address] Jul, [place] [address] [address] Jul, Chronic kidney disease, stage 4 (severe) N18.4 [place] [address] [address] Jul, [place] [address] [address] Jul, Restless leg G25.81 ; Mixed stress and u rge urinary incontinence N39.46 and Fibromyalgia M79.7 [place] [address] [address] Jul, Chronic kidney disease, stage 4 (severe) N18.4 [place] [address] [address] Jun, Orthostatic hypotension I95.1 ; Chronic kidney disease, stage 4 (severe) N18.4 ; Chest wall discomfort R07.89 and Body mass index (BMI) of 40.0- 44.9 in adult Z68.41 [place] [address] [address] Jun, [place] [address] [address] Jun, Orthostatic hypotension I95.[address] [place] [address] Jun, [facility] [address] [facility] [id number] [address] [place] [address] Jun, Orthostatic hypotension I95. 1 ; Dysuria R30.0 and Acute cystitis without hematuria N30.00 [facility] [address] [address] Jun, [facility] [address] [address] Jun, Chronic kidney disease, stage 4 (severe) N18.4 [facility] [address] [address] Jun, Fibromyalgia M79.7 [facility] [address] [address] Jun, [facility] [address] [address] Jun, [facility] [address] [address] May, Abnormal chest [address] R93.8 and 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 [facility] [address] [address] May, Chronic kidney disease, stage 4 (severe) N18.4 [facility] [address] [address] May, Chronic kidney disease, stage 4 (severe) N18.4 [facility] [address] [address] May, Abnormal chest [address] R93.8 [facility] [address] [address] May, [facility] [address] [address] May, [facility] [address] [address] May, Generalized anxiety disorder F41.1 and M ajor depressive disorder, recurrent episode with anxious distress F33.9 [facility] [address] [address] May, Mood disorder F39 [facility] [address] [place] [id number] [place] [address] Apr, [facility] [address] [address] Apr, Infected skin lesion L08.[address] rain of right shoulder region, initial encounter S46.911A [place] [address] [address] Apr, Generalized anxiety disorder F41.1 and M shiraor depressive disorder, recurrent episode with anxious distress F33.9 [place] [address] [address] Apr, [facility] [address] [address] Apr, Recent urinary tract infection Z87.440 a nd Hypothyroid E03.9 [place] [address] [address] Apr, Generalized anxiety disorder F41.1 and M shiraor depressive disorder, recurrent episode with anxious distress F33.9 [place] [address] [address] Apr, Recent urinary tract infection Z87.440 [facility] [address] [place] [id number] [place] [address] Mar, [facility] [address] [facility] [id number] [address] [place] [address] Mar, Dysuria R30.0 ; Acute cystit is without hematuria N30.00 and BMI 40.0-44.9, adult Z68.41 [facility] [address] [place] [id number] [place] [address] Mar, [place] [address] [address] Mar, [place] [address] [address] Mar, Generalized anxiety disorder F41.1 and Tae donovan depressive disorder, recurrent episode with anxious distress F33.9 [place] [address] [address] Feb, Conjunctivitis, bacterial H10.9 [place] [address] [address] Feb, [facility] [address] [address] Feb, Conjunctivitis, bacterial H1 0.9 [place] [address] [address] Feb, [facility] [address] [address] Feb, Dysuria R30.0 ; Acute cystit is N30.00 and BMI 40.0-44.9, adult Z68.41 [place] [address] [address] Feb, [place] [address] [address] Feb, Generalized anxiety disorder F41.1 and Tae donovan depressive disorder, recurrent episode with anxious distress F33.9 [place] [address] [address] Feb, Mood disorder F39 and BMI 40.0-44.9, feli lt Z68.41 [place] [address] [address] Jan, [place] [address] [address] 18 Jan, 2017 [place] [address] [address] Jan, Hypothyroid E03.9 [place] [address] [address] Jan, [place] [address] [address] Jan, Chronic kidney disease, unspecified N18. 9 ; Hypokalemia E87.6 ; Essential (primary) hypertension I10 ; Fibromyalgia M79.7 ; Coronary artery disease involving [place] coronary artery of [place] heart, angina presence unspecified I25.10 ; Hypothyroid E03.9 and Encounter for immunization Z23 [place] [address] [address] Jan, Hypothyroid E03.9 [place] [address] [address] Jan, [place] [address] [address] Dec, Vitamin D deficiency E55.9 [place] [address] [address] 28 Dec, 2016 Primary osteoarthritis of left knee M17. 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 [place] [address] [address] 19 Dec, 2016 Fibromyalgia M79.7 [place] [address] [address] 18 Dec, 2016 Mood disorder F39 [place] [address] [address] 13 Dec, 2016 [place] [address] [address] 13 Dec, 2016 Generalized anxiety disorder F41.1 and M ajor depressive disorder, recurrent episode with anxious distress F33.9 [place] [address] [address] 11 Dec, 2016 [place] [address] [address] 08 Dec, 2016 Streptococcal meningitis G00.2 [facility] [id number] [place] [address] 07 Dec, 2016 Streptococcal meningitis G00.2 [facility] [id number] [place] [address] Dec, [facility] [id number] [place] [address] Dec, Streptococcal meningitis G00.2 [facility] [id number] [place] [address] Dec, [facility] [address] [address] Dec, Major depressive disorder, recurrent epi sode with anxious distress F33.9 [place] [id number] [place] [address] Nov, Fever, unspecified fever cause R50.9 [place] [address] [place] [id number] [place] [address] Nov, [place] [address] [address] Nov, Hypothyroid E03.9 [place] [address] [id number] [place] [address] Nov, Generalized anxiety disorder F41.1 and M ajor depressive disorder, recurrent episode with anxious distress F33.9 [place] [address] [id number] [place] [address] Nov, [facility] [address] [id number] [place] [id number] Oct, Dental examination Z01.20 [place] [address] [address] Oct, Generalized anxiety disorder F41.1 and M ajor depressive disorder, recurrent episode with anxious distress F33.9 [place] [id number] [place] [address] Oct, Chronic kidney disease, stage 4 (severe) N18.4 [address] [address] Oct, [address] [address] Oct, Fibromyalgia M79.7 [place] [place] [address] [address] Oct, [address] [address] Oct, Generalized anxiety disorder F41.1 ; Fady or depressive disorder, recurrent episode with anxious distress F33.9 and Bipolar disorder, current episode manic without psychotic features F31.10 [address] [address] Sep, [address] [address] Sep, [address] [address] Sep, Vitamin D deficiency E55.[address] [address] Sep, Vitamin D deficiency E55.9 [place] [address] [address] Sep, [address] [address] Sep, Chronic kidney disease, stage 4 (severe) N18.4 ; Hypothyroid E03.9 ; Restless leg G25.81 ; Fibromyalgia M79.7 ; Essential (primary) hypertension I10 ; Vitamin D deficiency E55.9 ; Dyspepsia R10.13 ; Anemia in chronic kidney disease D63.1 ; Chronic kidney disease, unspecified N18.9 ; Coronary artery disease involving [place] coronary artery of [place] heart, angina presence unspecified I25.10 ; Screening breast examination Z12.39 and Low back pain M54.[address] [address] August, Generalized anxiety disorder F41.1 and Tae donovan depressive disorder, recurrent episode with anxious distress F33.9 [place] [address] [address] August, Generalized anxiety disorder F41.1 and Tae donovan depressive disorder, recurrent episode with anxious distress F33.9 [place] [address] [address] August, Fibromyalgia M79.7 [place] [address] [address] Jul, Generalized anxiety disorder F41.1 and Tae donovan depressive disorder, recurrent episode with anxious distress F33.9 [place] [address] [address] Jul, Fibromyalgia M79.7 [place] [address] [address] Jul, Generalized anxiety disorder F41.1 [place] [address] [address] May, [place] [address] [address] May, Hypothyroid E03.9 [place] [address] [address] May, Chronic kidney disease, stage 4 (severe) N18.4 ; Hypothyroid E03.9 ; Restless leg G25.81 ; Fibromyalgia M79.7 ; Essential (primary) hypertension I10 ; Vitamin D deficiency E55.9 ; Dyspepsia R10.13 ; Acute non-recurrent maxillary sinusitis J01.00 ; Anemia in chronic kidney disease D63.1 ; Chronic kidney disease, unspecified N18.9 and Coronary artery disease involving [place] coronary artery of [place] heart, angina presence unspecified I25.10 [place] [address] [address] May, Vitamin D deficiency, unspecified E55.9 [facility] [address] [id number] [place] [address] May, Generalized anxiety disorder F41.1 and Tae donovan depressive disorder, recurrent episode with anxious distress F33.9 [facility] [id number] [place] [address] Apr, Pain in right knee M25.561 and Pain in l eft knee M25.562 [place] [id number] [place] [address] Apr, [facility] [id number] [place] [address] Apr, [place] [id number] [place] [address] Apr, [place] [id number] [place] [address] Mar, Generalized anxiety disorder F41.1 and Tae donovan depressive disorder, recurrent episode with anxious distress F33.9 [place] [id number] [place] [address] Mar, Generalized anxiety disorder F41.1 and Tae donovan depressive disorder, recurrent episode with anxious distress F33.9 [place] [id number] [place] [address] Mar, [place] [address] [place] [id number] [place] [address] Mar, [facility] [id number] [place] [address] Mar, [facility] [id number] [place] [address] Mar, Asthma J45.909 and Fibromyalgia M79.7 [place] [id number] [place] [address] Mar, Chronic kidney disease, stage 4 (severe) N18.4 ; Vitamin D deficiency E55.9 and Essential (primary) hypertension I10 [place] [address] [address] Feb, [facility] [address] [address] Feb, Dysuria R30.0 ; Mixed stress and urge ur inary incontinence N39.46 ; Fibromyalgia M79.7 and Chronic kidney disease, stage IV (severe) N18.4 [facility] [address] [address] Feb, Chronic kidney disease, stage 4 (severe) N18.4 [facility] [address] [address] Feb, Chronic kidney disease, stage 4 (severe) N18.4 [place] [address] [address] Feb, [place] [address] [address] Feb, Vitamin D deficiency, unspecified E55.9 [facility] [address] [address] Jan, [place] [address] [address] Jan, [facility] [address] [address] 30 Dec, 2015 [place] [address] [address] 28 Dec, 2015 Chronic kidney disease, stage 4 (severe) N18.4 [facility] [address] [address] Dec, Dysthymic disorder F34.1 and Generalized anxiety disorder F41.1 [place] [address] [address] 27 Dec, 2015 [facility] [address] [address] Dec, [facility] [address] [address] 08 Dec, 2015 Dysthymic disorder F34.1 and Generalized anxiety disorder F41.1 [place] [address] [address] Dec, Dysuria R30.0 ; Chronic kidney disease, stage 4 (severe) N18.4 ; Hypertension I10 ; Dyspepsia R10.13 ; Yeast dermatitis B37.2 ; Palpitations R00.2 ; Hypothyroid E03.9 ; Functional diarrhea K59.1 and Other seasonal allergic rhinitis J30.2 [facility] [address] [place] [address] Dec, [facility] [address] [address] Nov, Dysuria R30.0 and Stress inc ontinence N39.3 [place] [address] [address] Nov, [place] [address] [address] Nov, [place] [address] [address] Nov, Osteoarthritis of knees, bilateral M17.0 [place] [address] [address] Nov, Dysthymic disorder F34.1 and Generalized anxiety disorder F41.1 [place] [address] [address] Nov, [place] [address] [address] Nov, [place] [address] [address] Nov, Urgency of urination R39.15 [place] [address] [address] Nov, [place] [address] [address] Nov, Chronic kidney disease, stage 4 (severe) N18.4 [place] [address] [address] Oct, Hypertension I10 ; Coronary artery disea se involving [place] coronary artery of [place] heart, angina presence unspecified I25.10 ; Palpitations R00.2 ; Hypothyroid E03.9 ; Right foot pain M79.671 ; Functional diarrhea K59.1 and Other seasonal allergic rhinitis J30.2 [place] [address] [address] Oct, Dysthymic disorder F34.1 and Generalized anxiety disorder F41.1 [place] [address] [address] Sep, [place] [address] [address] Sep, [place] [address] [address] Sep, [place] [address] [address] Sep, [place] [address] [address] Sep, [place] [address] [address] Sep, Dysthymic disorder F34.1 and Generalized anxiety disorder F41.1 [place] [address] [address] 16 Sep, 2015 Asthma with acute exacerbation in adult J45.901 ; Dysuria R30.0 ; Chronic kidney disease, stage 4 (severe) N18.4 and History of anemia Z86.2 [place] [address] [address] Sep, Generalized anxiety disorder F41.1 and D ysthymic disorder F34.1 [place] [address] [address] August, Screening breast examination Z12.39 and Acute recurrent maxillary sinusitis J01.01 [place] [address] [address] August, Osteoarthritis of knees, bilateral M17.0 [place] [address] [address] August, Chronic kidney disease, stage 4 (severe) N18.4 ; Acute non-recurrent maxillary sinusitis J01.00 ; Urinary problem R39.89 ; Bowel habit changes R19.4 ; Functional diarrhea K59.1 and History of colon polyps Z86.010 [place] [address] [address] Jul, Dysthymic disorder F34.1 and Generalized anxiety disorder F41.1 [place] [address] [address] Jul, [place] [address] [address] Jul, Dysthymic disorder F34.1 ; Generalized a nxiety disorder F41.1 and 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 [place] [address] [address] Jul, [place] [address] [address] Jun, [place] [address] [address] Jun, [place] [address] [address] May, [address] [address] May, Dysthymic disorder F34.1 and Generalized anxiety disorder F41.1 [place] [address] [address] Apr, Kidney disease N28.9 [place] [address] [address] Apr, Generalized anxiety disorder F41.1 and D ysthymic disorder F34.1 [place] [address] [address] Apr, Chronic kidney disease, stage 4 (severe) N18.4 [place] [address] [address] Apr, Generalized anxiety disorder F41.1 ; Fady or depression, recurrent F33.9 and Sleep disturbance G47.9 [place] [address] [address] Mar, Generalized anxiety disorder F41.1 and D ysthymic disorder F34.1 [place] [address] [address] Mar, Generalized anxiety disorder F41.1 ; 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 and Insomnia G47.00 [place] [address] [address] Mar, [place] [address] [address] Mar, [address] [address] Mar, Osteoarthritis of knees, bilateral M17.[address] [address] Mar, Hypertension I10 ; Hypothyroid E03.9 ; D ysthymic disorder F34.1 ; Chronic kidney disease, stage 4 (severe) N18.4 and Nausea & vomiting R11.[address] [address] Mar, Generalized anxiety disorder F41.1 ; 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 and Insomnia G47.00 [place] [address] [address] Mar, Dehydration E86.0 ; Chronic kidney disea se, stage 4 (severe) N18.4 and Nausea & vomiting R11.2 [facility] [address] [facility] [id number] [address] [place] [address] Mar, Gastroenteritis K52.9 [facility] [address] [facility] [place] [address] Mar, [address] [address] Mar, [place] [address] [address] Feb, Dysthymic disorder F34.1 and Generalized anxiety disorder F41.[address] [address] Jan, UTI (urinary tract infection) N39.0 ; As thma J45.909 ; Coronary artery disease involving [place] coronary artery of [place] heart, angina presence unspecified I25.10 ; Hypertension I10 ; Hypothyroid E03.9 ; Vitamin D deficiency E55.9 ; Insomnia G47.00 ; Palpitations R00.2 ; Depressed F32.9 ; Restless leg G25.81 and Anxiety F41.[address] [address] Jan, Dysthymic disorder F34.1 and Generalized anxiety disorder F41.[address] [address] Jan, [address] [address] Dec, [address] [address] Dec, Alkalosis 276.3 ; Chronic kidney disease , Stage IV (severe) 585.4 ; Hyperpotassemia 276.7 ; Secondary hyperparathyroidism, renal 588.81 ; Proteinuria 791.0 ; Unspecified vitamin D deficiency 268.9 ; Anemia in chronic kidney disease 285.21 ; Other and unspecified hyperlipidemia 272.4 ; Hypertension, essential, benign 401.1 and Chronic kidney disease (CKD), stage III (moderate) 585.3 [place] [address] [address] Dec, [place] [address] [address] Dec, Depressive disorder, not elsewhere class ified 311 and Generalized anxiety disorder 300.02 [place] [address] [address] Dec, [place] [address] [address] Dec, [address] [address] Nov, Depressive disorder, not elsewhere class ified 311 and Generalized anxiety disorder 300.[address] [address] Nov, Arthritis of both knees 716.[address] [address] Nov, PAF (paroxysmal atrial fibrillation) 427 .31 ; CAD (coronary artery disease) 414.00 ; Chest pain 786.50 and Chronic kidney disease (CKD) stage G4/A1, severely decreased glomerular filtration rate (GFR) between 15-29 mL/min/1.73 square meter and albuminuria creatinine ratio less than 30 mg/g 585.[address] [address] Oct, Coronary atherosclerosis of unspecified type of vessel, [place] or graft 414.00 ; Chronic kidney disease, Stage IV (severe) 585.4 ; Hypertension 401.9 and Edema 782.[address] [address] Oct, Depressive disorder, not elsewhere class ified 311 and Generalized anxiety disorder 300.[address] [address] Oct, Depressive disorder, not elsewhere class ified 311 and Generalized anxiety disorder 300.02 [place] [address] [address] Oct, [facility] [address] [place] [address] Oct, [facility] [address] [address] Sep, [address] [address] Sep, Chronic kidney disease, Stage IV (severe ) 585.[address] [address] Sep, [address] [address] Sep, Coronary atherosclerosis of unspecified type of vessel, [place] or graft 414.00 ; Hypertension 401.9 ; Edema 782.3 and Hypothyroidism 244.[address] [address] Sep, Coronary atherosclerosis of unspecified type of vessel, [place] or graft 414.00 ; Hypertension 401.9 ; Fibromyalgia 729.1 ; Edema 782.3 ; Hypothyroidism 244.9 and Anemia 285.[address] [address] Sep, Anxiety disorder, unspecified 300.00 and Depressive disorder, not elsewhere classified [address] [address] Sep, [address] [address] August, Generalized anxiety disorder 300.[address] [address] August, Closed fracture of lateral malleolus 824 [address] [address] Jul, [address] [address] Jul, [facility] [address] [facility] [id number] [place] [address] Jun, [facility] [address] [id number] [facility] [place] [address] Jun, [facility] [address] [id number] [place] [address] Jun, [facility] [address] [id number] [place] [address] Jun, [facility] [address] [facility] [id number] [place] [address] Jun, [facility] [address] [id number] [place] [address] Jun, [facility] [address] [id number] [place] [address] 19 May, 2014 [facility] [address] [id number] [place] [address] 19 May, 2014 [facility] [address] [id number] [place] [address] 18 May, 2014 [facility] [address] [id number] [place] [address] 18 May, 2014 [facility] [address] [id number] [place] [address] 16 May, 2014 [facility] [address] [id number] [place] [address] 16 May, 2014 [facility] [address] [id number] [place] [address] 13 May, 2014 [facility] [address] [id number] [place] [address] 13 May, 2014 [facility] [address] [id number] [place] [address] 10 May, 2014 [facility] [address] [id number] [place] [address] 10 May, 2014 [facility] [address] [id number] [place] [address] Apr, [facility] [address] [id number] [place] [address] Apr, [facility] [address] [id number] [place] [address] Mar, [facility] [address] [id number] [place] [address] Mar, [facility] [address] [id number] [place] [address] Mar, [facility] [address] [id number] [place] [address] Mar, [facility] [address] [id number] [place] [address] Mar, [facility] [address] [id number] [place] [address] Mar, [facility] [address] [id number] [place] [address] Mar, [facility] [address] [id number] [place] [address] Feb, [facility] [address] [id number] [place] [address] Feb, [facility] [address] [id number] [place] [address] Feb, [facility] [address] [id number] [place] [address] Jan, [facility] [address] [id number] [place] [address] Jan, [facility] [address] [id number] [place] [address] Jan, [facility] [address] [id number] [place] [address] Jan, [facility] [address] [id number] [place] [address] Jan, [facility] [address] [facility] [id number] [place] [address] Jan, [facility] [address] [facility] [id number] [facility] [place] [address] Jan, [facility] [address] [facility] [id number] [place] [address] Jan, [facility] [address] [facility] [id number] [place] [address] Jan, [facility] [address] [facility] [id number] [place] [address] Jan, [facility] [address] [facility] [id number] [place] [address] Nov, [facility] [address] [id number] [place] [address] Nov, [facility] [address] [id number] [place] [address] Nov, [facility] [address] [facility] [id number] [place] [address] Oct, [facility] [address] [id number] [place] [address] Oct, [facility] [address] [id number] [place] [address] Oct, [facility] [address] [id number] [place] [address] Oct, [facility] [address] [facility] [id number] [place] [address] Oct, [facility] [address] [facility] [id number] [place] [address] Oct, [facility] [address] [facility] [id number] [place] [address] Oct, [facility] [address] [id number] [place] [address] Oct, [facility] [address] [id number] [place] [address] Oct, [facility] [address] [facility] [id number] [facility] [place] [address] Sep, [facility] [address] [facility] [id number] [place] [address] Sep, [facility] [address] [id number] [place] [address] Sep, [facility] [address] [id number] [place] [address] Sep, [facility] [address] [id number] [place] [address] Sep, [facility] [address] [id number] [place] [address] Sep, [facility] [address] [id number] [place] [address] Sep, [facility] [address] [id number] [place] [address] Sep, [facility] [address] [id number] [place] [address] Sep, [facility] [address] [id number] [place] [address] August, [facility] [address] [id number] [place] [address] August, [facility] [address] [id number] [place] [address] August, [facility] [address] [id number] [place] [address] August, [facility] [address] [id number] [place] [address] August, [facility] [address] [id number] [place] [address] August, [facility] [address] [id number] [place] [address] Jul, [facility] [address] [id number] [place] [address] Jul, [facility] [address] [id number] [place] [address] Jul, [facility] [address] [id number] [place] [address] Jul, [facility] [address] [id number] [place] [address] Jul, [facility] [address] [id number] [place] [address] Jul, [facility] [address] [id number] [place] [address] Jun, [facility] [address] [id number] [place] [address] Jun, [facility] [address] [id number] [place] [address] May, [facility] [address] [id number] [place] [address] May, [facility] [address] [id number] [place] [address] May, [facility] [address] [id number] [place] [address] May, [facility] [address] [id number] [place] [address] Apr, [facility] [address] [id number] [place] [address] Apr, [facility] [address] [id number] [place] [address] Mar, [facility] [address] [id number] [place] [address] Mar, [facility] [address] [id number] [place] [address] 17 Mar, 2013 [facility] [address] [id number] [place] [address] Mar, [facility] [address] [id number] [place] [address] Mar, [facility] [address] [id number] [place] [address] Mar, [facility] [address] [id number] [place] [address] Feb, [facility] [address] [id number] [place] [address] Feb, [facility] [address] [id number] [place] [address] Feb, [facility] [address] [id number] [place] [address] Feb, [facility] [address] [id number] [place] [address] Feb, [facility] [address] [id number] [place] [address] Feb, [facility] [address] [id number] [place] [address] Jan, [facility] [address] [id number] [place] [address] 24 Jan, 2013 [facility] [address] [id number] [place] [address] Jan, [facility] [address] [id number] [place] [address] 10 Jan, 2013 [facility] [address] [id number] [place] [address] 08 Jan, 2013 [facility] [address] [id number] [place] [address] 04 Jan, 2013 [facility] [address] [id number] [place] [address] 12 Dec, 2012 [facility] [address] [id number] [place] [address] 09 Dec, 2012 [facility] [address] [id number] [place] [address] Nov, [facility] [address] [id number] [place] [address] Nov, [facility] [address] [facility] [id number] [place] [address] Oct, [facility] [address] [id number] [facility] [place] [address] Oct, [facility] [address] [id number] [place] [address] Oct, [facility] [address] [id number] [place] [address] Oct, [facility] [address] [id number] [place] [address] Oct, [facility] [address] [id number] [place] [address] Oct, [facility] [address] [id number] [place] [address] Sep, [facility] [address] [id number] [place] [address] Sep, [facility] [address] [id number] [place] [address] Sep, [facility] [address] [id number] [place] [address] Sep, [facility] [address] [id number] [place] [address] August, [facility] [address] [id number] [place] [address] August, [facility] [address] [id number] [place] [address] August, [facility] [address] [id number] [place] [address] August, [facility] [address] [id number] [place] [address] August, [facility] [address] [id number] [place] [address] Jul, [facility] [address] [id number] [place] [address] Jul, [facility] [address] [id number] [place] [address] Jul, [facility] [facility] [address] [id number] [place] [address] Jul, [facility] [address] [id number] [place] [address] Jul, [facility] [address] [id number] [place] [address] Jul, [facility] [address] [id number] [place] [address] Jul, [facility] [address] [id number] [place] [address] Jul, [facility] [address] [id number] [place] [address] Jul, [facility] [address] [id number] [place] [address] Jul, [facility] [id number] [place] [id number] Jun, [facility] [address] [id number] [place] [address] Jun, [facility] [address] [id number] [place] [address] Jun, [facility] [address] [id number] [place] [address] Jun, [facility] [address] [id number] [place] [address] Jun, [facility] [address] [id number] [place] [address] May, [facility] [address] [id number] [place] [address] May, [facility] [address] [id number] [place] [address] May, [facility] [address] [id number] [place] [address] Apr, [facility] [address] [id number] [place] [address] Apr, [facility] [place] [facility] [address] [id number] [place] [address] Apr, [facility] [place] [facility] [address] [id number] [place] [address] Apr, [facility] [place] [facility] [address] [id number] [place] [address] Apr, [facility] [place] [facility] [address] [id number] [place] [address] Apr, [facility] [place] [address] [id number] [place] [address] Mar, [facility] [place] [address] [id number] [place] [address] Mar, [facility] [place] [facility] [address] [id number] [place] [address] Mar, [facility] [place] [facility] [address] [id number] [place] [address] Mar, [facility] [place] [address] [id number] [place] [address] Feb, [facility] [place] [address] [id number] [place] [address] Feb, [facility] [address] [id number] [place] [address] Feb, [facility] [place] [facility] [address] [id number] [place] [address] Feb, [facility] [place] [facility] [address] [id number] [place] [address] Feb, [facility] [place] [facility] [address] [id number] [place] [address] Feb, [facility] [place] [facility] [address] [id number] [place] [address] Feb, [facility] [place] [address] [id number] [place] [address] Feb, [facility] [place] [facility] [address] [id number] [place] [address] Feb, [facility] [place] [facility] [address] [id number] [place] [address] Feb, [facility] [place] [facility] [address] [id number] [place] [address] Feb, [facility] [address] [id number] [place] [address] Feb, [facility] [place] [facility] [id number] [place] [address] Feb, [facility] [place] [facility] [id number] [place] [address] Feb, [facility] [place] [facility] [address] [id number] [place] [address] Feb, [facility] [place] [facility] [address] [id number] [place] [address] Feb, [facility] [place] [facility] [address] [id number] [place] [address] Jan, [facility] [place] [facility] [address] [id number] [place] [address] Jan, [facility] [place] [facility] [address] [id number] [place] [address] Jan, [facility] [place] [facility] [id number] [place] [address] Jan, [facility] [facility] [address] [id number] [place] [address] Jan, [facility] [address] [id number] [place] [address] Jan, [facility] [facility] [address] [id number] [place] [address] 25 Jan, 2012 [facility] [address] [id number] [place] [address] 16 Jan, 2012 [facility] [address] [id number] [place] [address] 16 Jan, 2012 [facility] [facility] [address] [id number] [place] [address] 15 Jan, 2012 [facility] [address] [id number] [place] [address] 15 Jan, 2012 [facility] [facility] [address] [id number] [place] [address] 01 Jan, 2012 [facility] [place] [facility] [address] [id number] [place] [address] 26 Sep, 2011 [facility] [place] [facility] [address] [id number] [place] [address] 26 Sep, 2011 [facility] [place] [facility] [address] [id number] [place] [address] 24 Sep, 2011 [facility] [place] [facility] [address] [id number] [place] [address] 23 Sep, 2011 [facility] [place] [facility] [address] [id number] [place] [address] 22 Sep, 2011 [facility] [place] [facility] [address] [id number] [place] [address] 21 Sep, 2011 [facility] [place] [facility] [address] [id number] [place] [address] 20 Sep, 2011 [facility] [place] [facility] [address] [id number] [place] [address] 20 Sep, 2011 [facility] [place] [facility] [address] [id number] [place] [address] 07 Sep, 2011 [facility] [place] [facility] [address] [id number] [place] [address] 06 Sep, 2011 [facility] [facility] [address] [id number] [place] [address] 06 Dec, 2011 [facility] [place] [facility] [address] [id number] [facility] [place] [address] 05 Dec, 2011 [facility] [place] [facility] [address] [facility] [id number] [facility] [place] [address] Nov, [facility] [place] [facility] [address] [id number] [facility] [place] [address] 17 Nov, 2011 [facility] [place] [facility] [address] [id number] [facility] [place] [address] Nov, [facility] [place] [facility] [address] [facility] [id number] [facility] [place] [address] Nov, [facility] [place] [facility] [address] [id number] [facility] [place] [address] Nov, [facility] [place] [facility] [address] [id number] [facility] [place] [address] Nov, [facility] [place] [facility] [address] [id number] [facility] [place] [address] Nov, [facility] [place] [facility] [address] [facility] [id number] [facility] [place] [address] Nov, [facility] [place] [facility] [address] [id number] [facility] [place] [address] Oct, [facility] [place] [facility] [address] [id number] [place] [address] Oct, [facility] [place] [facility] [address] [id number] [place] [address] Oct, [facility] [place] [facility] [address] [facility] [id number] [facility] [place] [address] Oct, [facility] [facility] [address] [id number] [place] [address] Oct, [facility] [place] [facility] [address] [facility] [id number] [place] [address] 16 Oct, 2011 [facility] [place] [facility] [address] [id number] [facility] [place] [address] Oct, [facility] [place] [facility] [address] [id number] [place] [address] Sep, [facility] [place] [facility] [address] [id number] [place] [address] Sep, [facility] [place] [facility] [address] [id number] [place] [address] August, [facility] [place] [facility] [address] [id number] [place] [address] August, [facility] [place] [facility] [address] [id number] [place] [address] August, [facility] [place] [facility] [address] [id number] [place] [address] August, [facility] [place] [facility] [address] [id number] [place] [address] Jul, [facility] [place] [facility] [address] [id number] [place] [address] Jul, [facility] [place] [facility] [address] [id number] [place] [address] Jul, [facility] [place] [facility] [address] [id number] [place] [address] Jul, [facility] [place] [facility] [address] [id number] [place] [address] Jul, [facility] [place] [facility] [address] [id number] [place] [address] Jul, [facility] [place] [facility] [address] [id number] [place] [address] Jul, [facility] [place] [facility] [address] [id number] [place] [address] Jul, [facility] [facility] [address] [id number] [place] [address] Jul, [facility] [facility] [address] [id number] [place] [address] Jun, [facility] [place] [facility] [address] [id number] [place] [address] Jun, [facility] [facility] [address] [id number] [place] [address] 15 Jun, 2011 [facility] [facility] [address] [id number] [place] [address] 14 Jun, 2011 [facility] [place] [facility] [address] [id number] [place] [address] 12 Jun, 2011 [facility] [facility] [address] [id number] [place] [address] Jun, [facility] [facility] [address] [id number] [place] [address] Jun, [facility] [place] [facility] [address] [id number] [place] [address] May, [facility] [place] [facility] [address] [id number] [place] [address] 24 May, 2011 [facility] [place] [facility] [address] [id number] [place] [address] May, [facility] [place] [facility] [address] [id number] [place] [address] May, [facility] [place] [facility] [address] [id number] [place] [address] May, [facility] [place] [facility] [address] [id number] [place] [address] Apr, [facility] [place] [facility] [address] [id number] [place] [address] Apr, [facility] [place] [facility] [address] [id number] [place] [address] Apr, [facility] [place] [facility] [address] [id number] [place] [address] Apr, [facility] [place] [facility] [address] [id number] [place] [address] Apr, [facility] [place] [facility] [address] [id number] [place] [address] Mar, [facility] [place] [facility] [address] [id number] [place] [address] Mar, [facility] [place] [facility] [address] [facility] [id number] [place] [address] Mar, [facility] [place] [facility] [address] [id number] [place] [address] Mar, [facility] [place] [facility] [address] [id number] [place] [address] Mar, [facility] [place] [facility] [address] [id number] [place] [address] Mar, [facility] [place] [facility] [address] [facility] [id number] [place] [address] Mar, [facility] [place] [facility] [address] [id number] [place] [address] Feb, [facility] [place] [facility] [address] [id number] [place] [address] Feb, [facility] [place] [facility] [address] [id number] [place] [address] Feb, [facility] [place] [facility] [address] [id number] [place] [address] Feb, [facility] [place] [facility] [address] [id number] [place] [address] Jan, [facility] [place] [facility] [address] [id number] [place] [address] Jan, [facility] [place] [facility] [address] [id number] [place] [address] Jan, [facility] [place] [facility] [address] [id number] [place] [address] Jan, [facility] [place] [facility] [address] [id number] [place] [address] Nov, [facility] [place] [facility] [address] [id number] [place] [address] Mar, [facility] [place] [facility] [address] [id number] [place] [address] Mar, [facility] [place] [facility] [address] [id number] [place] [address] Mar, [facility] [address] [id number] [place] [address] Mar, [facility] [address] [id number] [place] [address] Mar, [facility] [id number] [place] [address] Mar, [facility] [address] [address] Feb, [facility] [address] [address] Feb, [facility] [address] [address] Jan, [facility] [id number] [place] [address] Jan, [facility] [id number] [place] [address] Jan, IMMUNIZATIONS No Known Immunizations SOCIAL HISTORY Never Assessed REASON FOR VISIT PLAN OF CARE VITAL SIGNS Height 63 in 2013-10-30 Weight 273.31 lbs 2013-10-30 Temperature 98.2 degrees Fahrenheit 2013-10-30 Heart Rate 88 bpm 2013-10-30 Respiratory Rate 22 2013-10-30 Blood pressure systolic 132 mmHg 2013-10-30 Blood pressure diastolic 74 mmHg 2013-10-30 MEDICATIONS Unknown Medications RESULTS No Results PROCEDURES Procedure Date Ordered Result Body Site MEASURE BLOOD OXYGEN LEVEL October 30, 2013 INSTRUCTIONS MEDICATIONS ADMINISTERED No Known Medications [...] surgery [facility] 03/2016 Surgical History Neurotransmitter placed [...]
--- OUTSIDE RECORDS SUMMARY | 2019-08-01 10:03 | XMS REPORT ---
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 Name Role Phone Migration, Doctor Unavailable Unavailable PROBLEMS Type Condition ICD9-CM Code [id number] Code Onset Dates Condition S tatus SNOMED Code Problem Generalized anxiety disorder F41.1 A ctive 90807448 Problem Low back pain M54.5 Active 444954 009 Problem Insomnia G47.00 Active 610288607 Problem Hypothyroid E03.9 Active 63847442 Problem Palpitations R00.2 Active 5917179 2 Problem Asthma J45.909 Active 358034843 Problem Mixed stress and urge urinary incontinence N39.46 Active 030815629 Problem Fibromyalgia M79.7 Active 5136510 05 Problem Stage 3 chronic kidney disease N18.3 Active 244338799 Problem Body mass index (BMI) of 40.0-44.9 in adult Z68.41 Active 558950379 Problem Seasonal allergic rhinitis due to pollen J30.1 Active 77307726 Problem 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 Active 6677567455401 Problem Primary osteoarthritis of left knee M17.12 Active 707172675 Problem Hypercholesterolemia E78.00 Active 35183242 Problem Essential (primary) hypertension I10 Active 13104432 Problem Restless leg syndrome G25.81 Active 22239550 Problem Chronic pain syndrome G89.4 Active 622304273 Problem Perimenopausal vasomotor symptoms N95.1 Active 965248659 Problem Major depressive disorder, recurrent, moderate F33 .1 Active [id number] ALLERGIES No Information ENCOUNTERS Encounter Location Date Diagnosis [facility] [address] [id number] [place] [address] Jun, [facility] [address] [id number] [place] [address] May, [facility] [address] [id number] [place] [address] Apr, Major depressive disorder, recurrent, mo derate F33.1 ; Generalized anxiety disorder F41.1 and Dysthymic disorder F34.1 [facility] [address] [address] Apr, Chronic pain syndrome G89.4 [place] [address] [address] Apr, Acute pain of right knee M25.561 [place] [address] [address] Apr, [place] [address] [address] Mar, Major depressive disorder, recurrent, mo derate F33.1 ; Generalized anxiety disorder F41.1 and Dysthymic disorder F34.1 [facility] [address] [facility] [id number] [address] [place] [address] Mar, Fluid collection of middle e ar H65.90 and Dizziness R42 [place] [address] [address] Mar, [place] [address] [address] Mar, [place] [address] [address] Mar, Essential (primary) hypertension I10 ; S tage 3 chronic kidney disease N18.3 ; Hypercholesterolemia E78.00 ; Asthma J45.909 ; Recurrent UTI N39.0 ; Status post shoulder surgery Z98.890 and Encounter for immunization Z23 [place] [address] [address] Mar, Chronic pain syndrome G89.4 [place] [address] [address] Feb, [place] [address] [address] Feb, [place] [address] [address] Feb, Oral thrush B37.0 and Sore throat J02.9 [place] [address] [address] Feb, Chronic pain syndrome G89.4 [place] [address] [address] Jan, [place] [address] [address] Jan, Chronic pain syndrome G89.4 [place] [address] [address] Jan, Hypercholesterolemia E78.00 [place] [address] [address] Jan, [place] [address] [address] Dec, Chronic kidney disease, stage 4 (severe) N18.4 [place] [address] [address] Dec, Major depressive disorder, recurrent, mo derate F33.1 ; Generalized anxiety disorder F41.1 and Dysthymic disorder F34.1 [place] [address] [address] Dec, Generalized anxiety disorder F41.1 and M ajor depressive disorder, recurrent episode with anxious distress F33.9 [place] [address] [address] Dec, [place] [address] [address] Dec, [place] [address] [address] Dec, Encounter for immunization Z23 [place] [address] [address] Dec, Diarrhea, unspecified type R19.7 and Hem orrhoids, unspecified hemorrhoid type K64.9 [place] [address] [address] 12 Dec, 2018 Encounter for Medicare annual wellness e xam Z00.00 ; Chronic kidney disease, stage 4 (severe) N18.4 ; Encounter for immunization Z23 ; Major depressive disorder, recurrent, moderate F33.1 ; Atherosclerosis of [place] coronary artery of [place] heart with angina pectoris I25.119 ; Asthma J45.909 ; Hypothyroid E03.9 and Fibromyalgia M79.7 [place] [address] [address] Dec, Chronic pain syndrome G89.[address] [address] Nov, Major depressive disorder, recurrent, mo derate F33.1 ; Generalized anxiety disorder F41.1 and Dysthymic disorder F34.1 [place] [address] [address] Nov, [place] [address] [address] Nov, Chronic pain syndrome G89.[address] [address] Nov, Restless leg syndrome G25.[address] [address] Nov, Pain in right shoulder M25.511 ; Restles s leg syndrome G25.81 ; Other chronic pain G89.29 ; Screening for breast cancer Z12.39 ; Insomnia G47.00 and Morbid obesity E66.01 [place] [address] [address] Nov, [address] [address] Oct, Major depressive disorder, recurrent, mo derate F33.1 ; Generalized anxiety disorder F41.1 and Dysthymic disorder F34.1 [place] [address] [address] Oct, [facility] [address] [address] [facility] [place] [address] Oct, Cellulitis of left lower extremity L03.1 16 and Morbid obesity E66.01 [facility] [address] [facility] [id number] [address] [place] [address] Oct, [facility] [address] [place] [id number] [place] [address] Oct, [facility] [address] [address] Oct, Generalized anxiety disorder F41.1 and M ajor depressive disorder, recurrent episode with anxious distress F33.9 [facility] [address] [facility] [id number] [address] [place] [address] Oct, [facility] [address] [address] Oct, Chronic pain syndrome G89.4 [facility] [address] [place] [id number] [place] [address] Oct, Chronic pain syndrome G89.4 [facility] [address] [place] [id number] [address] [place] [address] Oct, UTI symptoms R39.9 ; Acute c ystitis without hematuria N30.00 and Morbid obesity E66.01 [facility] [address] [place] [id number] [place] [address] Oct, [facility] [address] [address] Oct, Chronic pain syndrome G89.4 [facility] [address] [address] Sep, [facility] [address] [address] Sep, Generalized anxiety disorder F41.1 and M ajor depressive disorder, recurrent episode with anxious distress F33.9 [facility] [address] [address] 17 Sep, 2018 Chronic kidney disease, stage 4 (severe) N18.4 [facility] [address] [address] Sep, Fibromyalgia M79.7 and Chronic pain synd lisseth G89.4 [facility] [address] [address] Sep, [address] [place] [address] Sep, Chronic pain syndrome G89.4 [facility] [address] [address] Sep, [place] [address] [address] Sep, Chronic pain syndrome G89.4 ; Fibromyalg ia M79.7 and Morbid obesity E66.01 [place] [address] [address] August, Generalized anxiety disorder F41.1 and M ajor depressive disorder, recurrent episode with anxious distress F33.9 [place] [address] [address] August, Fibromyalgia M79.7 [place] [address] [address] August, Restless leg syndrome G25.81 ; Vitamin D deficiency E55.9 ; Urinary tract infection without hematuria, site unspecified N39.0 ; Pain in right shoulder M25.511 ; Other chronic pain G89.29 ; Biceps tendinitis on right M75.21 and Morbid obesity E66.01 [place] [address] [address] Jul, Urinary tract infection without hematuri a, site unspecified N39.0 and Morbid obesity E66.01 [facility] [address] [address] Jul, [place] [address] [address] Jul, [facility] [address] [address] Jul, Fibromyalgia M79.7 [facility] [address] [address] Jul, Acute pain of right shoulder M25.511 [facility] [address] [address] Jul, Acute pain of right shoulder M25.511 and Morbid obesity E66.01 [facility] [address] [address] Jun, [place] [address] [address] Jun, Generalized anxiety disorder F41.1 and M ajor depressive disorder, recurrent episode with anxious distress F33.9 [place] [address] [address] Jun, [facility] [address] [address] Jun, Fibromyalgia M79.7 [facility] [address] [facility] [id number] [address] [place] [address] Jun, Acute pain of right shoulder M25.511 ; Acute pain of right hip M25.551 and Morbid obesity E66.01 [facility] [address] [address] May, Burning with urination R30.0 ; Vaginal d ischarge N89.8 ; Chronic kidney disease, stage 4 (severe) N18.4 ; Body mass index (BMI) of 40.0-44.9 in adult Z68.41 and Morbid obesity E66.01 [facility] [address] [address] May, Fibromyalgia M79.7 [facility] [address] [address] May, Generalized anxiety disorder F41.1 and Tae donovan depressive disorder, recurrent episode with anxious distress F33.9 [facility] [address] [address] Apr, [facility] [address] [address] Apr, Fibromyalgia M79.7 [facility] [address] [place] [id number] [address] [place] [address] Mar, Acute UTI N39.0 and Dysuria R30.0 [facility] [address] [address] Mar, Fibromyalgia M79.7 [facility] [address] [address] Feb, [facility] [address] [address] Feb, [facility] [address] [address] Feb, [facility] [address] [address] Feb, Fibromyalgia M79.7 [facility] [address] [address] 08 Feb, 2018 Complicated UTI (urinary tract infection ) N39.0 [facility] [address] [address] Feb, [facility] [address] [address] Jan, Generalized anxiety disorder F41.1 and Tae donovan depressive disorder, recurrent episode with anxious distress F33.9 [facility] [address] [facility] [id number] [address] [place] [address] Jan, Acute conjunctivitis of left eye, unspecified acute conjunctivitis type H10.32 [place] [address] [address] Jan, [facility] [address] [address] Jan, Acute non-recurrent maxillary sinusitis J01.00 ; Dysuria R30.0 ; Perimenopausal vasomotor symptoms N95.1 and Fibromyalgia M79.7 [facility] [address] [address] Dec, Vitamin D deficiency E55.9 [facility] [address] [address] Dec, Vitamin D deficiency E55.9 [facility] [address] [address] Dec, Vitamin D deficiency E55.9 [facility] [address] [address] Dec, [place] [address] [address] Dec, Fibromyalgia M79.7 [facility] [address] [address] Nov, [facility] [address] [address] Nov, [facility] [address] [address] Nov, [facility] [address] [address] Nov, Fibromyalgia M79.7 ; Vision changes H53. 9 ; Chest wall pain R07.89 and Chronic pain syndrome G89.4 [facility] [address] [address] Nov, [place] [address] [address] Nov, Rash of hands R21 [facility] [address] [address] Nov, Generalized anxiety disorder F41.1 and M zion depressive disorder, recurrent episode with anxious distress F33.9 [facility] [address] [address] Nov, Fibromyalgia M79.7 [facility] [address] [address] Nov, Complicated UTI (urinary tract infection ) N39.0 [facility] [address] [address] Oct, [facility] [address] [address] Oct, Generalized anxiety disorder F41.1 and M zion depressive disorder, recurrent episode with anxious distress F33.9 [facility] [address] [address] Oct, [place] [address] [address] Oct, Fibromyalgia M79.7 [facility] [address] [address] Sep, Restless leg syndrome G25.81 and Restles s leg G25.81 [place] [address] [address] Sep, [facility] [address] [address] Sep, Seasonal allergic rhinitis due to pollen J30.1 ; Screening for breast cancer Z12.31 ; Chest pain at rest R07.9 ; Restless leg syndrome G25.81 ; Essential (primary) hypertension I10 and Depressed F32.9 [facility] [address] [address] August, Fibromyalgia M79.7 [facility] [address] [address] August, [facility] [address] [address] August, [facility] [address] [address] August, Abnormal chest CT R93.8 [place] [address] [address] August, Generalized anxiety disorder F41.1 and Tae donovan depressive disorder, recurrent episode with anxious distress F33.9 [place] [address] [address] August, Abnormal chest CT R93.8 [place] [address] [address] Jul, [place] [address] [address] Jul, Chronic kidney disease, stage 4 (severe) N18.4 [place] [address] [address] Jul, [place] [address] [address] Jul, Restless leg G25.81 ; Mixed stress and u rge urinary incontinence N39.46 and Fibromyalgia M79.7 [place] [address] [address] Jul, Chronic kidney disease, stage 4 (severe) N18.4 [place] [address] [address] Jun, Orthostatic hypotension I95.1 ; Chronic kidney disease, stage 4 (severe) N18.4 ; Chest wall discomfort R07.89 and Body mass index (BMI) of 40.0- 44.9 in adult Z68.41 [place] [address] [address] Jun, [place] [address] [address] Jun, Orthostatic hypotension I95.1 [place] [address] [address] Jun, [facility] [address] [facility] [id number] [address] [place] [address] Jun, Orthostatic hypotension I95. 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 [place] [address] [address] May, Chronic kidney disease, stage 4 (severe) N18.4 [place] [address] [address] May, Chronic kidney disease, stage 4 (severe) N18.4 [place] [address] [address] May, Abnormal chest CT R93.8 [place] [address] [address] May, [place] [address] [address] May, [facility] [address] [address] May, Generalized anxiety disorder F41.1 and Tae donovan depressive disorder, recurrent episode with anxious distress F33.9 [facility] [address] [place] [id number] [place] [address] May, Mood disorder F39 [facility] [address] [place] [id number] [place] [address] Apr, [facility] [address] [address] Apr, Infected skin lesion L08.[address] rain of right shoulder region, initial encounter S46.911A [facility] [address] [address] Apr, Generalized anxiety disorder F41.1 and M zion depressive disorder, recurrent episode with anxious distress F33.9 [place] [address] [address] Apr, [place] [address] [address] Apr, Recent urinary tract infection Z87.440 a nd Hypothyroid E03.9 [facility] [address] [address] Apr, Generalized anxiety disorder F41.1 and M zion depressive disorder, recurrent episode with anxious distress F33.9 [place] [address] [address] Apr, Recent urinary tract infection Z87.440 [facility] [address] [address] Mar, [facility] [address] [facility] [id number] [address] [place] [address] Mar, Dysuria R30.0 ; Acute cystit is without hematuria N30.00 and BMI 40.0-44.9, adult Z68.41 [facility] [address] [id number] [place] [address] Mar, [facility] [address] [address] Mar, [place] [address] [address] Mar, Generalized anxiety disorder F41.1 and Tae donovan depressive disorder, recurrent episode with anxious distress F33.9 [place] [address] [address] Feb, Conjunctivitis, bacterial H10.9 [place] [address] [address] Feb, [facility] [address] [facility] [id number] [address] [place] [address] Feb, Conjunctivitis, bacterial H1 0.9 [place] [address] [address] Feb, [facility] [place] [address] [place] [id number] [address] [place] [address] Feb, Dysuria R30.0 ; Acute cystit is N30.00 and BMI 40.0-44.9, adult Z68.41 [place] [address] [address] Feb, [place] [address] [address] Feb, Generalized anxiety disorder F41.1 and Tae donovan depressive disorder, recurrent episode with anxious distress F33.9 [place] [address] [address] Feb, Mood disorder F39 and BMI 40.0-44.9, feli lt Z68.41 [place] [address] [address] Jan, [place] [address] [address] Jan, [place] [address] [address] Jan, Hypothyroid E03.9 [place] [address] [address] Jan, [place] [address] [address] Jan, Chronic kidney disease, unspecified N18. 9 ; Hypokalemia E87.6 ; Essential (primary) hypertension I10 ; Fibromyalgia M79.7 ; Coronary artery disease involving [place] coronary artery of [place] heart, angina presence unspecified I25.10 ; Hypothyroid E03.9 and Encounter for immunization Z23 [place] [address] [address] Jan, Hypothyroid E03.9 [place] [address] [address] Jan, [place] [address] [address] Dec, Vitamin D deficiency E55.9 [place] [address] [address] Dec, Primary osteoarthritis of left knee M17. 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 [place] [address] [address] 19 Dec, 2016 Fibromyalgia M79.7 [place] [address] [address] 18 Dec, 2016 Mood disorder F39 [place] [address] [address] 13 Dec, 2016 [place] [address] [address] 13 Dec, 2016 Generalized anxiety disorder F41.1 and M ajor depressive disorder, recurrent episode with anxious distress F33.9 [place] [address] [address] 11 Dec, 2016 [place] [address] [address] 08 Dec, 2016 Streptococcal meningitis G00.2 [place] [address] [place] [address] 07 Dec, 2016 Streptococcal meningitis G00.2 [facility] [address] [address] Dec, [facility] [address] [address] Dec, Streptococcal meningitis G00.2 [facility] [address] [address] Dec, [facility] [address] [address] Dec, Major depressive disorder, recurrent epi sode with anxious distress F33.9 [place] [address] [address] Nov, Fever, unspecified fever cause R50.9 [place] [address] [address] Nov, [facility] [address] [address] Nov, Hypothyroid E03.9 [place] [address] [address] Nov, Generalized anxiety disorder F41.1 and M ajor depressive disorder, recurrent episode with anxious distress F33.9 [place] [address] [id number] [place] [address] Nov, [facility] [id number] [place] [id number] Oct, Dental examination Z01.20 [facility] [address] [address] Oct, Generalized anxiety disorder F41.1 and M ajor depressive disorder, recurrent episode with anxious distress F33.9 [facility] [address] [address] Oct, Chronic kidney disease, stage 4 (severe) N18.4 [place] [address] [address] Oct, [place] [address] [address] Oct, Fibromyalgia M79.7 [place] [address] [address] Oct, [place] [address] [address] Oct, Generalized anxiety disorder F41.1 ; Fady or depressive disorder, recurrent episode with anxious distress F33.9 and Bipolar disorder, current episode manic without psychotic features F31.10 [place] [address] [address] Sep, [place] [address] [address] Sep, [place] [address] [address] Sep, Vitamin D deficiency E55.9 [place] [address] [address] Sep, Vitamin D deficiency E55.9 [place] [address] [address] Sep, [place] [address] [address] Sep, Chronic kidney disease, stage 4 (severe) N18.4 ; Hypothyroid E03.9 ; Restless leg G25.81 ; Fibromyalgia M79.7 ; Essential (primary) hypertension I10 ; Vitamin D deficiency E55.9 ; Dyspepsia R10.13 ; Anemia in chronic kidney disease D63.1 ; Chronic kidney disease, unspecified N18.9 ; Coronary artery disease involving [place] coronary artery of [place] heart, angina presence unspecified I25.10 ; Screening breast examination Z12.39 and Low back pain M54.5 [place] [address] [address] August, Generalized anxiety disorder F41.1 and M ajor depressive disorder, recurrent episode with anxious distress F33.9 [place] [id number] [address] August, Generalized anxiety disorder F41.1 and Tae donovan depressive disorder, recurrent episode with anxious distress F33.9 [place] [address] [address] August, Fibromyalgia M79.7 [place] [address] [address] Jul, Generalized anxiety disorder F41.1 and M zion depressive disorder, recurrent episode with anxious distress F33.9 [place] [address] [address] Jul, Fibromyalgia M79.7 [place] [address] [address] Jul, Generalized anxiety disorder F41.1 [place] [address] [address] May, [place] [address] [address] May, Hypothyroid E03.9 [place] [address] [address] May, Chronic kidney disease, stage 4 (severe) N18.4 ; Hypothyroid E03.9 ; Restless leg G25.81 ; Fibromyalgia M79.7 ; Essential (primary) hypertension I10 ; Vitamin D deficiency E55.9 ; Dyspepsia R10.13 ; Acute non-recurrent maxillary sinusitis J01.00 ; Anemia in chronic kidney disease D63.1 ; Chronic kidney disease, unspecified N18.9 and Coronary artery disease involving [place] coronary artery of [place] heart, angina presence unspecified I25.10 [place] [address] [address] May, Vitamin D deficiency, unspecified E55.9 [place] [address] [address] May, Generalized anxiety disorder F41.1 and M shiraor depressive disorder, recurrent episode with anxious distress F33.9 [facility] [address] [address] Apr, Pain in right knee M25.561 and Pain in l eft knee M25.562 [facility] [address] [address] Apr, [facility] [address] [address] Apr, [facility] [address] [address] Apr, [place] [address] [address] Mar, Generalized anxiety disorder F41.1 and M shiraor depressive disorder, recurrent episode with anxious distress F33.9 [place] [address] [address] Mar, Generalized anxiety disorder F41.1 and M shiraor depressive disorder, recurrent episode with anxious distress F33.9 [place] [address] [address] Mar, [place] [address] [address] Mar, [place] [address] [address] Mar, [place] [address] [address] Mar, Asthma J45.909 and Fibromyalgia M79.[address] [address] Mar, Chronic kidney disease, stage 4 (severe) N18.4 ; Vitamin D deficiency E55.9 and Essential (primary) hypertension I10 [place] [address] [address] Feb, [place] [address] [address] 08 Feb, 2016 Dysuria R30.0 ; Mixed stress and urge ur inary incontinence N39.46 ; Fibromyalgia M79.7 and Chronic kidney disease, stage IV (severe) N18.4 [facility] [address] [address] Feb, Chronic kidney disease, stage 4 (severe) N18.4 [facility] [address] [address] Feb, Chronic kidney disease, stage 4 (severe) N18.4 [place] [address] [address] Feb, [facility] [address] [address] Feb, Vitamin D deficiency, unspecified E55.9 [place] [address] [address] Jan, [facility] [address] [address] Jan, [facility] [address] [address] 30 Dec, 2015 [place] [address] [address] 28 Dec, 2015 Chronic kidney disease, stage 4 (severe) N18.4 [facility] [address] [address] Dec, Dysthymic disorder F34.1 and Generalized anxiety disorder F41.1 [facility] [address] [address] 27 Dec, 2015 [facility] [address] [address] Dec, [facility] [address] [address] 08 Dec, 2015 Dysthymic disorder F34.1 and Generalized anxiety disorder F41.1 [place] [address] [address] 08 Dec, 2015 Dysuria R30.0 ; Chronic kidney disease, stage 4 (severe) N18.4 ; Hypertension I10 ; Dyspepsia R10.13 ; Yeast dermatitis B37.2 ; Palpitations R00.2 ; Hypothyroid E03.9 ; Functional diarrhea K59.1 and Other seasonal allergic rhinitis J30.2 [facility] [address] [place] [address] Dec, [facility] [address] [address] Nov, Dysuria R30.0 and Stress inc ontinence N39.3 [place] [address] [address] Nov, [place] [address] [address] Nov, [place] [address] [address] Nov, Osteoarthritis of knees, bilateral M17.[address] [address] Nov, Dysthymic disorder F34.1 and Generalized anxiety disorder F41.1 [place] [address] [address] 16 Nov, 2015 [place] [address] [address] Nov, [place] [address] [address] Nov, Urgency of urination R39.15 [place] [address] [address] Nov, [place] [address] [address] Nov, Chronic kidney disease, stage 4 (severe) N18.4 [place] [address] [address] Oct, Hypertension I10 ; Coronary artery disea se involving [place] coronary artery of [place] heart, angina presence unspecified I25.10 ; Palpitations R00.2 ; Hypothyroid E03.9 ; Right foot pain M79.671 ; Functional diarrhea K59.1 and Other seasonal allergic rhinitis J30.2 [place] [address] [address] Oct, Dysthymic disorder F34.1 and Generalized anxiety disorder F41.1 [place] [address] [address] Sep, [place] [address] [address] Sep, [place] [address] [address] Sep, [place] [address] [address] Sep, [place] [address] [address] Sep, [address] [address] Sep, Dysthymic disorder F34.1 and Generalized anxiety disorder F41.[address] [address] Sep, Asthma with acute exacerbation in adult J45.901 ; Dysuria R30.0 ; Chronic kidney disease, stage 4 (severe) N18.4 and History of anemia Z86.[address] [address] Sep, Generalized anxiety disorder F41.1 and D ysthymic disorder F34.[address] [address] August, Screening breast examination Z12.39 and Acute recurrent maxillary sinusitis J01.01 [place] [address] [address] 12 Aug, 2015 Osteoarthritis of knees, bilateral M17.0 [place] [address] [address] August, Chronic kidney disease, stage 4 (severe) N18.4 ; Acute non-recurrent maxillary sinusitis J01.00 ; Urinary problem R39.89 ; Bowel habit changes R19.4 ; Functional diarrhea K59.1 and History of colon polyps Z86.010 [place] [address] [address] Jul, Dysthymic disorder F34.1 and Generalized anxiety disorder F41.1 [place] [address] [address] Jul, [place] [address] [address] Jul, Dysthymic disorder F34.1 ; Generalized a nxiety disorder F41.1 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 [place] [address] [address] Jul, [place] [address] [address] Jun, [place] [address] [address] Jun, [place] [address] [address] May, [place] [address] [address] May, Dysthymic disorder F34.1 and Generalized anxiety disorder F41.1 [place] [address] [address] Apr, Kidney disease N28.9 [place] [address] [address] Apr, Generalized anxiety disorder F41.1 and D ysthymic disorder F34.1 [facility] [address] [address] Apr, Chronic kidney disease, stage 4 (severe) N18.4 [facility] [address] [address] Apr, Generalized anxiety disorder F41.1 ; Fady or depression, recurrent F33.9 and Sleep disturbance G47.9 [place] [address] [address] Mar, Generalized anxiety disorder F41.1 and D ysthymic disorder F34.1 [place] [address] [address] Mar, Generalized anxiety disorder F41.1 ; 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 and Insomnia G47.00 [place] [address] [address] Mar, [place] [address] [address] Mar, [place] [address] [address] Mar, Osteoarthritis of knees, bilateral M17.[address] [address] Mar, Hypertension I10 ; Hypothyroid E03.9 ; D ysthymic disorder F34.1 ; Chronic kidney disease, stage 4 (severe) N18.4 and Nausea & vomiting R11.2 [place] [address] [address] Mar, Generalized anxiety disorder F41.1 ; 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 and Insomnia G47.00 [place] [address] [address] Mar, Dehydration E86.0 ; Chronic kidney disea se, stage 4 (severe) N18.4 and Nausea & vomiting R11.2 [facility] [address] [facility] [id number] [address] [place] [address] Mar, Gastroenteritis K52.[address] [address] Mar, [place] [address] [address] Mar, [address] [address] Feb, Dysthymic disorder F34.1 and Generalized anxiety disorder F41.[address] [address] Jan, UTI (urinary tract infection) N39.0 ; As thma J45.909 ; Coronary artery disease involving [place] coronary artery of [place] heart, angina presence unspecified I25.10 ; Hypertension I10 ; Hypothyroid E03.9 ; Vitamin D deficiency E55.9 ; Insomnia G47.00 ; Palpitations R00.2 ; Depressed F32.9 ; Restless leg G25.81 and Anxiety F41.[address] [address] Jan, Dysthymic disorder F34.1 and Generalized anxiety disorder F41.[address] [address] Jan, [address] [address] Dec, [address] [address] Dec, Alkalosis 276.3 ; Chronic kidney disease , Stage IV (severe) 585.4 ; Hyperpotassemia 276.7 ; Secondary hyperparathyroidism, renal 588.81 ; Proteinuria 791.0 ; Unspecified vitamin D deficiency 268.9 ; Anemia in chronic kidney disease 285.21 ; Other and unspecified hyperlipidemia 272.4 ; Hypertension, essential, benign 401.1 and Chronic kidney disease (CKD), stage III (moderate) 585.[address] [place] [address] Dec, [facility] [address] [address] Dec, Depressive disorder, not elsewhere class ified 311 and Generalized anxiety disorder 300.02 [place] [address] [address] Dec, [place] [address] [address] Dec, [place] [address] [address] Nov, Depressive disorder, not elsewhere class ified 311 and Generalized anxiety disorder 300.02 [place] [address] [address] Nov, Arthritis of both knees 716.96 [place] [address] [address] Nov, PAF (paroxysmal atrial fibrillation) 427 .31 ; CAD (coronary artery disease) 414.00 ; Chest pain 786.50 and Chronic kidney disease (CKD) stage G4/A1, severely decreased glomerular filtration rate (GFR) between 15-29 mL/min/1.73 square meter and albuminuria creatinine ratio less than 30 mg/g 585.4 [place] [address] [address] Oct, Coronary atherosclerosis of unspecified type of vessel, [place] or graft 414.00 ; Chronic kidney disease, Stage IV (severe) 585.4 ; Hypertension 401.9 and Edema 782.3 [place] [address] [address] Oct, Depressive disorder, not elsewhere class ified 311 and Generalized anxiety disorder 300.02 [place] [address] [address] Oct, Depressive disorder, not elsewhere class ified 311 and Generalized anxiety disorder 300.02 [place] [address] [address] Oct, [facility] [address] [address] Oct, [facility] [address] [address] Sep, [facility] [address] [address] Sep, Chronic kidney disease, Stage IV (severe ) 585.4 [place] [address] [address] Sep, [address] [address] Sep, Coronary atherosclerosis of unspecified type of vessel, [place] or graft 414.00 ; Hypertension 401.9 ; Edema 782.3 and Hypothyroidism 244.[address] [address] Sep, Coronary atherosclerosis of unspecified type of vessel, [place] or graft 414.00 ; Hypertension 401.9 ; Fibromyalgia 729.1 ; Edema 782.3 ; Hypothyroidism 244.9 and Anemia 285.[address] [address] Sep, Anxiety disorder, unspecified 300.00 and Depressive disorder, not elsewhere classified [address] [address] Sep, [facility] [address] [place] [address] August, Generalized anxiety disorder 300.[address] [address] August, Closed fracture of lateral malleolus 824 .[address] [address] Jul, [address] [address] Jul, [facility] [address] [place] [address] Jun, [facility] [address] [id number] [place] [address] Jun, [facility] [address] [id number] [place] [address] Jun, [facility] [address] [id number] [place] [address] Jun, [facility] [address] [id number] [place] [address] Jun, [facility] [address] [facility] [id number] [place] [address] Jun, [facility] [address] [id number] [place] [address] May, 2014 [facility] [address] [id number] [place] [address] May, 2014 [facility] [address] [id number] [place] [address] 18 May, 2014 [facility] [address] [id number] [place] [address] 18 May, 2014 [facility] [address] [id number] [place] [address] 16 May, 2014 [facility] [address] [id number] [place] [address] 16 May, 2014 [facility] [address] [id number] [place] [address] 13 May, 2014 [facility] [address] [id number] [place] [address] 13 May, 2014 [facility] [address] [id number] [place] [address] 10 May, 2014 [facility] [address] [id number] [place] [address] 10 May, 2014 [facility] [address] [id number] [place] [address] Apr, [facility] [address] [id number] [place] [address] Apr, [facility] [address] [id number] [place] [address] Mar, [facility] [address] [id number] [place] [address] Mar, [facility] [address] [id number] [place] [address] Mar, [facility] [address] [id number] [place] [address] Mar, [facility] [address] [id number] [place] [address] Mar, [facility] [address] [id number] [place] [address] Mar, [facility] [address] [id number] [place] [address] Mar, [facility] [address] [id number] [place] [address] Feb, [facility] [address] [id number] [place] [address] Feb, [facility] [address] [id number] [place] [address] Feb, [facility] [address] [id number] [place] [address] Jan, [facility] [address] [id number] [place] [address] Jan, [facility] [address] [id number] [place] [address] Jan, [facility] [address] [id number] [place] [address] 20 Jan, 2014 [facility] [address] [id number] [place] [address] 13 Jan, 2014 [facility] [address] [id number] [place] [address] Jan, [facility] [address] [facility] [id number] [facility] [place] [address] Jan, [facility] [address] [facility] [id number] [facility] [place] [address] Jan, [facility] [address] [facility] [id number] [facility] [place] [address] Jan, [facility] [address] [facility] [id number] [facility] [place] [address] Jan, [facility] [address] [facility] [id number] [facility] [place] [address] Nov, [facility] [address] [facility] [id number] [place] [address] Nov, [facility] [address] [id number] [place] [address] Nov, [facility] [address] [id number] [facility] [place] [address] Oct, [facility] [address] [facility] [id number] [place] [address] Oct, [facility] [address] [facility] [id number] [place] [address] Oct, [facility] [address] [facility] [id number] [place] [address] Oct, [facility] [address] [id number] [place] [address] Oct, [facility] [address] [facility] [id number] [place] [address] Oct, [facility] [address] [id number] [place] [address] Oct, [facility] [address] [facility] [id number] [place] [address] Oct, [facility] [address] [id number] [place] [address] Oct, [facility] [address] [id number] [place] [address] Sep, [facility] [address] [id number] [place] [address] Sep, [facility] [address] [id number] [place] [address] Sep, [facility] [address] [id number] [place] [address] Sep, [facility] [address] [id number] [place] [address] Sep, [facility] [address] [id number] [place] [address] Sep, [facility] [address] [id number] [place] [address] Sep, [facility] [address] [id number] [place] [address] Sep, [facility] [address] [id number] [place] [address] Sep, [facility] [address] [id number] [place] [address] August, [facility] [address] [id number] [place] [address] August, [facility] [address] [id number] [place] [address] August, [facility] [address] [id number] [place] [address] August, [facility] [address] [id number] [place] [address] August, [facility] [address] [id number] [place] [address] August, [facility] [address] [id number] [place] [address] Jul, [facility] [address] [id number] [place] [address] Jul, [facility] [address] [id number] [place] [address] Jul, [facility] [address] [id number] [place] [address] Jul, [facility] [address] [id number] [place] [address] Jul, [facility] [address] [id number] [place] [address] Jul, [facility] [address] [id number] [place] [address] Jun, [facility] [address] [id number] [place] [address] Jun, [facility] [address] [id number] [place] [address] May, [facility] [address] [id number] [place] [address] May, [facility] [address] [id number] [place] [address] May, [facility] [address] [id number] [place] [address] May, [facility] [address] [id number] [place] [address] Apr, [facility] [address] [id number] [place] [address] Apr, [facility] [address] [id number] [place] [address] Mar, [facility] [address] [id number] [place] [address] Mar, [facility] [address] [id number] [place] [address] Mar, [facility] [address] [id number] [place] [address] Mar, [facility] [address] [id number] [place] [address] 05 Mar, 2013 [facility] [address] [id number] [place] [address] Mar, [facility] [address] [id number] [place] [address] Feb, [facility] [address] [id number] [place] [address] Feb, [facility] [address] [id number] [place] [address] Feb, [facility] [address] [id number] [place] [address] Feb, [facility] [address] [id number] [place] [address] Feb, [facility] [address] [id number] [place] [address] Feb, [facility] [address] [id number] [place] [address] Jan, [facility] [address] [id number] [place] [address] Jan, [facility] [address] [id number] [place] [address] Jan, [facility] [address] [id number] [place] [address] Jan, [facility] [address] [id number] [place] [address] 08 Jan, 2013 [facility] [address] [id number] [place] [address] Jan, [facility] [address] [id number] [place] [address] 12 Dec, 2012 [facility] [address] [id number] [place] [address] 09 Dec, 2012 [facility] [address] [id number] [place] [address] Nov, [facility] [address] [facility] [id number] [facility] [place] [address] Nov, [facility] [address] [id number] [facility] [place] [address] Oct, [facility] [address] [facility] [id number] [place] [address] Oct, [facility] [address] [id number] [place] [address] Oct, [facility] [address] [id number] [place] [address] Oct, [facility] [address] [id number] [place] [address] Oct, [facility] [address] [id number] [place] [address] Oct, [facility] [address] [id number] [place] [address] Sep, [facility] [address] [id number] [place] [address] Sep, [facility] [address] [id number] [place] [address] Sep, [facility] [address] [id number] [place] [address] Sep, [facility] [address] [id number] [place] [address] August, [facility] [address] [id number] [place] [address] August, [facility] [address] [facility] [id number] [place] [address] August, [facility] [address] [id number] [place] [address] August, [facility] [address] [id number] [place] [address] August, [facility] [address] [id number] [place] [address] Jul, [facility] [address] [id number] [place] [address] Jul, [facility] [address] [id number] [place] [address] 15 Jul, 2012 [facility] [address] [id number] [place] [address] Jul, [facility] [address] [id number] [place] [address] Jul, [facility] [address] [id number] [place] [address] Jul, [facility] [address] [id number] [place] [address] Jul, [facility] [address] [id number] [place] [address] Jul, [facility] [address] [id number] [place] [address] Jul, [facility] [address] [id number] [place] [address] Jul, [facility] [address] [id number] [id number] Jun, [facility] [address] [id number] [place] [address] Jun, [facility] [address] [id number] [place] [address] Jun, [facility] [address] [id number] [place] [address] Jun, [facility] [address] [id number] [place] [address] Jun, [facility] [address] [id number] [place] [address] May, [facility] [address] [id number] [place] [address] May, [facility] [address] [id number] [place] [address] May, [facility] [address] [id number] [place] [address] Apr, [facility] [address] [id number] [place] [address] Apr, [facility] [address] [id number] [place] [address] Apr, [facility] [address] [id number] [place] [address] Apr, [facility] [address] [id number] [place] [address] Apr, [facility] [address] [id number] [place] [address] Apr, [facility] [address] [id number] [place] [address] Mar, [facility] [address] [id number] [place] [address] Mar, [facility] [address] [id number] [place] [address] Mar, [facility] [address] [id number] [place] [address] Mar, [facility] [address] [id number] [place] [address] Feb, [facility] [address] [id number] [place] [address] Feb, [facility] [address] [id number] [place] [address] Feb, [facility] [address] [id number] [place] [address] Feb, [facility] [address] [id number] [place] [address] Feb, [facility] [id number] [place] [address] Feb, [facility] [address] [id number] [place] [address] Feb, [facility] [address] [id number] [place] [address] Feb, [facility] [address] [id number] [place] [address] Feb, [facility] [address] [id number] [place] [address] Feb, [facility] [address] [id number] [place] [address] Feb, [facility] [address] [id number] [place] [address] Feb, [facility] [address] [id number] [place] [address] Feb, [facility] [address] [id number] [place] [address] Feb, [facility] [address] [id number] [place] [address] Feb, [facility] [address] [id number] [place] [address] Feb, [facility] [address] [id number] [place] [address] Jan, [facility] [address] [id number] [place] [address] Jan, [facility] [address] [id number] [place] [address] Jan, [facility] [address] [id number] [place] [address] Jan, [facility] [address] [id number] [place] [address] Jan, [facility] [address] [id number] [place] [address] Jan, [facility] [address] [id number] [place] [address] Jan, [facility] [address] [id number] [place] [address] 16 Jan, 2011 [facility] [address] [id number] [place] [address] 16 Jan, 2011 [facility] [address] [id number] [place] [address] 15 Jan, 2012 [facility] [address] [id number] [place] [address] 15 Jan, 2012 [facility] [address] [id number] [place] [address] Jan, [facility] [address] [id number] [place] [address] 26 Sep, 2011 [facility] [address] [id number] [place] [address] 26 Sep, 2011 [facility] [address] [id number] [place] [address] 24 Sep, 2011 [facility] [address] [id number] [place] [address] 23 Sep, 2011 [facility] [address] [id number] [place] [address] 22 Sep, 2011 [facility] [address] [id number] [place] [address] 21 Sep, 2011 [facility] [address] [id number] [place] [address] 20 Sep, 2011 [facility] [address] [id number] [place] [address] 20 Sep, 2011 [facility] [address] [id number] [place] [address] 07 Sep, 2011 [facility] [address] [id number] [place] [address] 06 Sep, 2011 [facility] [address] [id number] [place] [address] 06 Sep, 2011 [facility] [address] [id number] [place] [address] 05 Dec, 2011 [facility] [address] [id number] [facility] [place] [address] Nov, [facility] [address] [facility] [id number] [facility] [place] [address] Nov, [facility] [address] [id number] [facility] [place] [address] Nov, [facility] [address] [id number] [facility] [place] [address] Nov, [facility] [address] [facility] [id number] [facility] [place] [address] Nov, [facility] [address] [id number] [facility] [place] [address] Nov, [facility] [address] [id number] [facility] [place] [address] Nov, [facility] [address] [id number] [facility] [place] [address] Nov, [facility] [address] [id number] [facility] [place] [address] Oct, [facility] [address] [id number] [facility] [place] [address] Oct, [facility] [address] [id number] [place] [address] Oct, [facility] [address] [id number] [place] [address] Oct, [facility] [address] [id number] [facility] [place] [address] Oct, [facility] [address] [id number] [place] [address] Oct, [facility] [address] [id number] [facility] [place] [address] Oct, [facility] [address] [id number] [place] [address] Sep, [facility] [address] [id number] [place] [address] Sep, [facility] [address] [id number] [place] [address] August, [facility] [address] [id number] [place] [address] August, [facility] [address] [id number] [place] [address] August, [facility] [address] [id number] [place] [address] August, [facility] [address] [id number] [place] [address] Jul, [facility] [address] [id number] [place] [address] Jul, [facility] [address] [id number] [place] [address] Jul, [facility] [address] [id number] [place] [address] 05 Jul, 2011 [facility] [address] [id number] [place] [address] Jul, [facility] [address] [id number] [place] [address] Jul, [facility] [address] [id number] [place] [address] Jul, [facility] [address] [id number] [place] [address] Jul, [facility] [address] [id number] [place] [address] Jul, [facility] [address] [id number] [place] [address] Jun, [facility] [address] [id number] [place] [address] Jun, [facility] [address] [id number] [place] [address] 15 Jun, 2011 [facility] [address] [id number] [place] [address] 14 Jun, 2011 [facility] [address] [id number] [place] [address] 12 Jun, 2011 [facility] [address] [id number] [place] [address] 09 Jun, 2011 [facility] [address] [id number] [place] [address] Jun, [facility] [address] [id number] [place] [address] May, [facility] [address] [id number] [place] [address] May, [facility] [address] [id number] [place] [address] May, [facility] [address] [id number] [place] [address] May, [facility] [address] [id number] [place] [address] May, [facility] [address] [id number] [place] [address] Apr, [facility] [address] [id number] [place] [address] Apr, [facility] [address] [id number] [place] [address] Apr, [facility] [address] [id number] [place] [address] Apr, [facility] [address] [id number] [place] [address] Apr, [facility] [address] [id number] [place] [address] Mar, [facility] [address] [id number] [place] [address] Mar, [facility] [address] [id number] [place] [address] Mar, [facility] [address] [id number] [place] [address] Mar, [facility] [address] [id number] [place] [address] Mar, [facility] [address] [id number] [place] [address] Mar, [facility] [address] [id number] [place] [address] Mar, [facility] [address] [id number] [place] [address] Feb, [facility] [address] [id number] [place] [address] Feb, [facility] [address] [id number] [place] [address] Feb, [facility] [address] [id number] [place] [address] Feb, [facility] [address] [id number] [place] [address] Jan, [facility] [address] [id number] [place] [address] Jan, [facility] [address] [id number] [place] [address] Jan, [facility] [address] [id number] [place] [address] Jan, [facility] [address] [id number] [place] [address] Nov, [facility] [address] [id number] [place] [address] Mar, [facility] [address] [id number] [place] [address] Mar, [facility] [address] [id number] [place] [address] Mar, [facility] [id number] [place] [address] Mar, [facility] [address] [address] Mar, [facility] [address] [address] Mar, [facility] [address] [address] Feb, [facility] [address] [address] Feb, [facility] [address] [address] Jan, [facility] [address] [address] Jan, [facility] [address] [address] Jan, IMMUNIZATIONS No Known Immunizations SOCIAL HISTORY [...] History CPAP Noncompliance_ Dr. Madden advises a [employer] driving. Medical History Bacterial meningitis 12/2016 [...] 09-2015 & 2007 Surgical History Bladder surgery [facility] 03/2016 Surgical History Neurotransmitter placed 10/2017 [...] [facility] psych for SI 1988 Hospitalization History [facility]-Altered mental status 05/2017 Hospitalization History sepsis, UTI, headache 08/03/2018-
--- OUTSIDE RECORDS SUMMARY | 2019-08-01 10:04 | XMS REPORT ---
Author Author JahLola Doctor Organization [facility] Address Unknown Phone Unavailable Care Team Providers Care [employer] D[employer] Stewardess Name Role Phone Migration, Doctor Unavailable Unavailable PROBLEMS Type Condition ICD9-CM Code [id number] Code Onset Dates Condition S tatus SNOMED Code Problem Generalized anxiety disorder F41.1 A ctive 06071485 Problem Low back pain M54.5 Active 715114 009 Problem Insomnia G47.00 Active 484949104 Problem Hypothyroid E03.9 Active 74648399 Problem Palpitations R00.2 Active 6583275 2 Problem Asthma J45.909 Active 844249382 Problem Mixed stress and urge urinary incontinence N39.46 Active 458798278 Problem Fibromyalgia M79.7 Active 5384286 05 Problem Stage 3 chronic kidney disease N18.3 Active 994296812 Problem Body mass index (BMI) of 40.0-44.9 in adult Z68.41 Active 752618388 Problem Seasonal allergic rhinitis due to pollen J30.1 Active 17500665 Problem 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 Active 3663655545011 Problem Primary osteoarthritis of left knee M17.12 Active 666516701 Problem Hypercholesterolemia E78.00 Active 73198416 Problem Essential (primary) hypertension I10 Active 98206590 Problem Restless leg syndrome G25.81 Active 14845227 Problem Chronic pain syndrome G89.4 Active 341031979 Problem Perimenopausal vasomotor symptoms N95.1 Active 276089724 Problem Major depressive disorder, recurrent, moderate F33 .1 Active 297244265 ALLERGIES No Information ENCOUNTERS Encounter Location Date Diagnosis [facility] [address] [id number] [place] [address] May, [facility] [id number] [place] [address] Apr, [facility] [address] [id number] [place] [address] Apr, Chronic pain syndrome G89.4 [place] [address] [address] Apr, Acute pain of right knee M25.561 [place] [address] [address] Apr, [place] [address] [address] Mar, Major depressive disorder, recurrent, mo derate F33.1 ; Generalized anxiety disorder F41.1 and Dysthymic disorder F34.1 [facility] [address] [facility] [id number] [address] [place] [address] Mar, Fluid collection of middle e ar H65.90 and Dizziness R42 [place] [address] [address] Mar, [place] [address] [address] Mar, [place] [address] [address] Mar, Essential (primary) hypertension I10 ; S tage 3 chronic kidney disease N18.3 ; Hypercholesterolemia E78.00 ; Asthma J45.909 ; Recurrent UTI N39.0 ; Status post shoulder surgery Z98.890 and Encounter for immunization Z23 [place] [address] [address] Mar, Chronic pain syndrome G89.4 [place] [address] [address] Feb, [place] [address] [address] Feb, [place] [address] [address] Feb, Oral thrush B37.0 and Sore throat J02.9 [place] [address] [address] Feb, Chronic pain syndrome G89.4 [place] [address] [address] 30 Jan, 2019 [place] [address] [address] 14 Jan, 2019 Chronic pain syndrome G89.4 [place] [address] [address] 02 Jan, 2019 Hypercholesterolemia E78.00 [place] [address] [address] Jan, [place] [address] [address] Dec, Chronic kidney disease, stage 4 (severe) N18.4 [place] [address] [address] Dec, Major depressive disorder, recurrent, mo derate F33.1 ; Generalized anxiety disorder F41.1 and Dysthymic disorder F34.1 [place] [address] [address] Dec, Generalized anxiety disorder F41.1 and M ajor depressive disorder, recurrent episode with anxious distress F33.9 [place] [address] [address] Dec, [place] [address] [address] Dec, [place] [address] [address] Dec, Encounter for immunization Z23 [place] [address] [address] Dec, Diarrhea, unspecified type R19.7 and Hem orrhoids, unspecified hemorrhoid type K64.9 [place] [address] [address] Dec, Encounter for Medicare annual wellness e xam Z00.00 ; Chronic kidney disease, stage 4 (severe) N18.4 ; Encounter for immunization Z23 ; Major depressive disorder, recurrent, moderate F33.1 ; Atherosclerosis of [place] coronary artery of [place] heart with angina pectoris I25.119 ; Asthma J45.909 ; Hypothyroid E03.9 and Fibromyalgia M79.7 [place] [address] [address] Dec, Chronic pain syndrome G89.4 [place] [address] [address] Nov, Major depressive disorder, recurrent, mo derate F33.1 ; Generalized anxiety disorder F41.1 and Dysthymic disorder F34.1 [place] [address] [address] Nov, [place] [address] [address] Nov, Chronic pain syndrome G89.4 [place] [address] [address] Nov, Restless leg syndrome G25.81 [place] [address] [address] Nov, Pain in right shoulder M25.511 ; Restles s leg syndrome G25.81 ; Other chronic pain G89.29 ; Screening for breast cancer Z12.39 ; Insomnia G47.00 and Morbid obesity E66.01 [place] [address] [address] Nov, [place] [address] [address] Oct, Major depressive disorder, recurrent, mo derate F33.1 ; Generalized anxiety disorder F41.1 and Dysthymic disorder F34.1 [place] [address] [address] Oct, [place] [address] [address] Oct, Cellulitis of left lower extremity L03.1 16 and Morbid obesity E66.01 [facility] [address] [facility] [id number] [place] [address] Oct, [facility] [address] [address] Oct, [facility] [address] [address] Oct, Generalized anxiety disorder F41.1 and M zion depressive disorder, recurrent episode with anxious distress F33.9 [facility] [address] [facility] [id number] [place] [address] 15 Oct, 2018 [facility] [address] [address] Oct, Chronic pain syndrome G89.4 [facility] [address] [address] Oct, Chronic pain syndrome G89.4 [facility] [address] [place] [id number] [place] [address] Oct, UTI symptoms R39.9 ; Acute c ystitis without hematuria N30.00 and Morbid obesity E66.01 [facility] [address] [address] Oct, [facility] [address] [address] Oct, Chronic pain syndrome G89.4 [place] [address] [address] Sep, [place] [address] [address] Sep, Generalized anxiety disorder F41.1 and M zion depressive disorder, recurrent episode with anxious distress F33.9 [place] [address] [address] 17 Sep, 2018 Chronic kidney disease, stage 4 (severe) N18.4 [place] [address] [address] Sep, Fibromyalgia M79.7 and Chronic pain synd lisseht G89.4 [facility] [id number] [place] [address] Sep, [facility] [address] [place] [address] Sep, Chronic pain syndrome G89.4 [facility] [id number] [place] [address] Sep, [facility] [address] [address] Sep, Chronic pain syndrome G89.4 ; Fibromyalg ia M79.7 and Morbid obesity E66.01 [facility] [address] [address] August, Generalized anxiety disorder F41.1 and M ajor depressive disorder, recurrent episode with anxious distress F33.9 [facility] [id number] [place] [address] August, Fibromyalgia M79.7 [facility] [id number] [place] [address] August, Restless leg syndrome G25.81 ; Vitamin D deficiency E55.9 ; Urinary tract infection without hematuria, site unspecified N39.0 ; Pain in right shoulder M25.511 ; Other chronic pain G89.29 ; Biceps tendinitis on right M75.21 and Morbid obesity E66.01 [facility] [id number] [place] [address] Jul, Urinary tract infection without hematuri a, site unspecified N39.0 and Morbid obesity E66.01 [facility] [id number] [place] [address] Jul, [facility] [address] [address] Jul, [facility] [address] [address] Jul, Fibromyalgia M79.7 [facility] [address] [address] Jul, Acute pain of right shoulder M25.511 [place] [address] [address] Jul, Acute pain of right shoulder M25.511 and Morbid obesity E66.01 [place] [address] [address] Jun, [place] [address] [address] Jun, Generalized anxiety disorder F41.1 and M zion depressive disorder, recurrent episode with anxious distress F33.9 [place] [address] [address] Jun, [place] [address] [address] Jun, Fibromyalgia M79.7 [facility] [address] [facility] [id number] [place] [address] Jun, Acute pain of right shoulder M25.511 ; Acute pain of right hip M25.551 and Morbid obesity E66.01 [place] [address] [address] May, Burning with urination R30.0 ; Vaginal d ischarge N89.8 ; Chronic kidney disease, stage 4 (severe) N18.4 ; Body mass index (BMI) of 40.0-44.9 in adult Z68.41 and Morbid obesity E66.01 [place] [address] [address] May, Fibromyalgia M79.7 [place] [address] [address] May, Generalized anxiety disorder F41.1 and M zion depressive disorder, recurrent episode with anxious distress F33.9 [place] [address] [address] Apr, [place] [address] [address] 08 Apr, 2018 Fibromyalgia M79.7 [facility] [address] [facility] [id number] [address] [place] [address] 14 Mar, 2018 Acute UTI N39.0 and Dysuria R30.0 [facility] [address] [address] 10 Mar, 2018 Fibromyalgia M79.7 [facility] [address] [address] 15 Feb, 2018 [facility] [address] [address] Feb, [facility] [address] [address] Feb, [place] [address] [address] Feb, Fibromyalgia M79.7 [facility] [address] [address] 08 Feb, 2018 Complicated UTI (urinary tract infection ) N39.0 [facility] [address] [address] Feb, [facility] [address] [address] Jan, Generalized anxiety disorder F41.1 and Tae donovan depressive disorder, recurrent episode with anxious distress F33.9 [facility] [address] [facility] [id number] [address] [place] [address] Jan, Acute conjunctivitis of left eye, unspecified acute conjunctivitis type H10.32 [facility] [address] [address] Jan, [place] [address] [address] Jan, Acute non-recurrent maxillary sinusitis J01.00 ; Dysuria R30.0 ; Perimenopausal vasomotor symptoms N95.1 and Fibromyalgia M79.7 [facility] [address] [address] 28 Dec, 2017 Vitamin D deficiency E55.9 [facility] [address] [address] Dec, Vitamin D deficiency E55.9 [facility] [address] [address] 24 Dec, 2017 Vitamin D deficiency E55.9 [facility] [address] [address] Dec, [place] [address] [address] Dec, Fibromyalgia M79.7 [place] [address] [address] Nov, [place] [address] [address] Nov, [facility] [address] [address] Nov, [place] [address] [address] Nov, Fibromyalgia M79.7 ; Vision changes H53. 9 ; Chest wall pain R07.89 and Chronic pain syndrome G89.4 [place] [address] [address] Nov, [place] [address] [address] Nov, Rash of hands R21 [place] [address] [address] Nov, Generalized anxiety disorder F41.1 and M ajor depressive disorder, recurrent episode with anxious distress F33.9 [place] [address] [address] Nov, Fibromyalgia M79.7 [facility] [address] [address] Nov, Complicated UTI (urinary tract infection ) N39.0 [place] [address] [address] Oct, [facility] [address] [address] Oct, Generalized anxiety disorder F41.1 and Tae donovan depressive disorder, recurrent episode with anxious distress F33.9 [place] [address] [address] Oct, [place] [address] [address] Oct, Fibromyalgia M79.7 [place] [address] [address] Sep, Restless leg syndrome G25.81 and Restles s leg G25.81 [place] [address] [address] Sep, [place] [address] [address] Sep, Seasonal allergic rhinitis due to pollen J30.1 ; Screening for breast cancer Z12.31 ; Chest pain at rest R07.9 ; Restless leg syndrome G25.81 ; Essential (primary) hypertension I10 and Depressed F32.9 [place] [address] [address] August, Fibromyalgia M79.7 [place] [address] [address] August, [place] [address] [address] August, [place] [address] [address] August, Abnormal chest CT R93.8 [place] [address] [address] August, Generalized anxiety disorder F41.1 and Tae donovan depressive disorder, recurrent episode with anxious distress F33.9 [place] [address] [address] August, Abnormal chest CT R93.8 [place] [address] [address] Jul, [place] [address] [address] Jul, Chronic kidney disease, stage 4 (severe) N18.4 [place] [address] [address] Jul, [place] [address] [address] Jul, Restless leg G25.81 ; Mixed stress and u rge urinary incontinence N39.46 and Fibromyalgia M79.7 [place] [address] [address] Jul, Chronic kidney disease, stage 4 (severe) N18.4 [place] [address] [address] Jun, Orthostatic hypotension I95.1 ; Chronic kidney disease, stage 4 (severe) N18.4 ; Chest wall discomfort R07.89 and Body mass index (BMI) of 40.0- 44.9 in adult Z68.41 [place] [address] [address] Jun, [place] [address] [address] Jun, Orthostatic hypotension I95.1 [place] [address] [address] Jun, [facility] [address] [facility] [id number] [address] [place] [address] Jun, Orthostatic hypotension I95. 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 [facility] [address] [address] May, Chronic kidney disease, stage 4 (severe) N18.4 [facility] [address] [address] May, Chronic kidney disease, stage 4 (severe) N18.4 [facility] [address] [address] May, Abnormal chest [address] R93.8 [facility] [address] [address] May, [facility] [address] [address] May, [facility] [address] [address] May, Generalized anxiety disorder F41.1 and Tae donovan depressive disorder, recurrent episode with anxious distress F33.9 [facility] [address] [address] May, Mood disorder F39 [facility] [address] [address] Apr, [facility] [id number] [place] [address] Apr, Infected skin lesion L08.[address] rain of right shoulder region, initial encounter S46.911A [facility] [id number] [place] [address] Apr, Generalized anxiety disorder F41.1 and Tae donovan depressive disorder, recurrent episode with anxious distress F33.9 [facility] [address] [address] Apr, [place] [address] [address] Apr, Recent urinary tract infection Z87.440 a nd Hypothyroid E03.9 [place] [address] [address] Apr, Generalized anxiety disorder F41.1 and Tae donovan depressive disorder, recurrent episode with anxious distress F33.9 [facility] [id number] [place] [address] Apr, Recent urinary tract infection Z87.440 [place] [address] [address] Mar, [facility] [address] [facility] [id number] [address] [place] [address] Mar, Dysuria R30.0 ; Acute cystit is without hematuria N30.00 and BMI 40.0-44.9, adult Z68.41 [facility] [id number] [place] [address] Mar, [facility] [address] [address] Mar, [facility] [address] [address] Mar, Generalized anxiety disorder F41.1 and Tae donovan depressive disorder, recurrent episode with anxious distress F33.9 [place] [address] [address] Feb, Conjunctivitis, bacterial H10.9 [place] [address] [address] Feb, [facility] [address] [facility] [id number] [place] [address] Feb, Conjunctivitis, bacterial H1 0.9 [place] [address] [address] Feb, [facility] [address] [facility] [id number] [address] [place] [address] Feb, Dysuria R30.0 ; Acute cystit is N30.00 and BMI 40.0-44.9, adult Z68.41 [place] [address] [address] Feb, [place] [address] [address] Feb, Generalized anxiety disorder F41.1 and M ajor depressive disorder, recurrent episode with anxious distress F33.9 [place] [address] [address] Feb, Mood disorder F39 and BMI 40.0-44.9, feli lt Z68.41 [place] [address] [address] Jan, [place] [address] [address] Jan, [place] [address] [address] Jan, Hypothyroid E03.9 [place] [address] [address] Jan, [place] [address] [address] Jan, Chronic kidney disease, unspecified N18. 9 ; Hypokalemia E87.6 ; Essential (primary) hypertension I10 ; Fibromyalgia M79.7 ; Coronary artery disease involving [place] coronary artery of [place] heart, angina presence unspecified I25.10 ; Hypothyroid E03.9 and Encounter for immunization Z23 [place] [address] [address] 04 Jan, 2017 Hypothyroid E03.9 [place] [address] [address] Jan, [place] [address] [address] 28 Dec, 2016 Vitamin D deficiency E55.9 [place] [address] [address] Dec, Primary osteoarthritis of left knee M17. 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 [place] [address] [address] 19 Dec, 2016 Fibromyalgia M79.7 [place] [address] [address] 18 Dec, 2016 Mood disorder F39 [place] [address] [address] 13 Dec, 2016 [place] [address] [address] 13 Dec, 2016 Generalized anxiety disorder F41.1 and Tae donovan depressive disorder, recurrent episode with anxious distress F33.9 [place] [address] [address] 11 Dec, 2016 [place] [address] [address] 08 Dec, 2016 Streptococcal meningitis G00.2 [place] [address] [address] 07 Dec, 2016 Streptococcal meningitis G00.2 [place] [address] [address] 07 Dec, 2016 [place] [id number] [place] [address] 06 Dec, 2016 Streptococcal meningitis G00.2 [facility] [id number] [place] [address] Dec, [facility] [address] [address] Dec, Major depressive disorder, recurrent epi sode with anxious distress F33.9 [facility] [id number] [place] [address] Nov, Fever, unspecified fever cause R50.9 [facility] [id number] [place] [address] Nov, [facility] [address] [address] Nov, Hypothyroid E03.9 [facility] [address] [address] Nov, Generalized anxiety disorder F41.1 and M shiraor depressive disorder, recurrent episode with anxious distress F33.9 [facility] [id number] [place] [address] Nov, [facility] [id number] [place] [id number] Oct, Dental examination Z01.20 [facility] [id number] [place] [address] Oct, Generalized anxiety disorder F41.1 and M ajor depressive disorder, recurrent episode with anxious distress F33.9 [facility] [id number] [place] [address] Oct, Chronic kidney disease, stage 4 (severe) N18.4 [facility] [address] [address] Oct, [facility] [address] [address] Oct, Fibromyalgia M79.7 [facility] [address] [address] Oct, [address] [address] Oct, Generalized anxiety disorder F41.1 ; Fady or depressive disorder, recurrent episode with anxious distress F33.9 and Bipolar disorder, current episode manic without psychotic features F31.10 [place] [address] [address] Sep, [place] [address] [address] Sep, [address] [address] Sep, Vitamin D deficiency E55.[address] [address] Sep, Vitamin D deficiency E55.[address] [address] Sep, [place] [address] [address] Sep, Chronic kidney disease, stage 4 (severe) N18.4 ; Hypothyroid E03.9 ; Restless leg G25.81 ; Fibromyalgia M79.7 ; Essential (primary) hypertension I10 ; Vitamin D deficiency E55.9 ; Dyspepsia R10.13 ; Anemia in chronic kidney disease D63.1 ; Chronic kidney disease, unspecified N18.9 ; Coronary artery disease involving [place] coronary artery of [place] heart, angina presence unspecified I25.10 ; Screening breast examination Z12.39 and Low back pain M54.[address] [address] August, Generalized anxiety disorder F41.1 and Tae donovan depressive disorder, recurrent episode with anxious distress F33.[address] [address] August, Generalized anxiety disorder F41.1 and Tae donovan depressive disorder, recurrent episode with anxious distress F33.9 [place] [address] [address] August, Fibromyalgia M79.7 [place] [address] [address] Jul, Generalized anxiety disorder F41.1 and Tae donovan depressive disorder, recurrent episode with anxious distress F33.9 [place] [address] [address] Jul, Fibromyalgia M79.7 [place] [address] [address] Jul, Generalized anxiety disorder F41.1 [place] [address] [address] May, [address] [address] May, Hypothyroid E03.9 [place] [address] [address] May, Chronic kidney disease, stage 4 (severe) N18.4 ; Hypothyroid E03.9 ; Restless leg G25.81 ; Fibromyalgia M79.7 ; Essential (primary) hypertension I10 ; Vitamin D deficiency E55.9 ; Dyspepsia R10.13 ; Acute non-recurrent maxillary sinusitis J01.00 ; Anemia in chronic kidney disease D63.1 ; Chronic kidney disease, unspecified N18.9 and Coronary artery disease involving [place] coronary artery of [place] heart, angina presence unspecified I25.10 [place] [address] [address] May, Vitamin D deficiency, unspecified E55.[address] [address] May, Generalized anxiety disorder F41.1 and Tae donovan depressive disorder, recurrent episode with anxious distress F33.9 [place] [address] [address] Apr, Pain in right knee M25.561 and Pain in l eft knee M25.562 [place] [address] [address] Apr, [place] [address] [address] Apr, [place] [address] [address] Apr, [place] [address] [address] Mar, Generalized anxiety disorder F41.1 and M shiraor depressive disorder, recurrent episode with anxious distress F33.9 [place] [address] [address] Mar, Generalized anxiety disorder F41.1 and M shiraor depressive disorder, recurrent episode with anxious distress F33.9 [place] [address] [address] Mar, [place] [address] [address] Mar, [place] [address] [address] Mar, [place] [address] [address] Mar, Asthma J45.909 and Fibromyalgia M79.7 [place] [address] [address] Mar, Chronic kidney disease, stage 4 (severe) N18.4 ; Vitamin D deficiency E55.9 and Essential (primary) hypertension I10 [place] [address] [address] Feb, [place] [address] [address] Feb, Dysuria R30.0 ; Mixed stress and urge ur inary incontinence N39.46 ; Fibromyalgia M79.7 and Chronic kidney disease, stage IV (severe) N18.4 [facility] [address] [address] Feb, Chronic kidney disease, stage 4 (severe) N18.4 [facility] [address] [address] Feb, Chronic kidney disease, stage 4 (severe) N18.4 [facility] [address] [address] Feb, [facility] [address] [address] Feb, Vitamin D deficiency, unspecified E55.9 [place] [address] [address] Jan, [place] [address] [address] Jan, [place] [address] [address] 30 Dec, 2015 [place] [address] [address] Dec, Chronic kidney disease, stage 4 (severe) N18.4 [place] [address] [address] Dec, Dysthymic disorder F34.1 and Generalized anxiety disorder F41.1 [place] [address] [address] 27 Dec, 2015 [facility] [address] [address] Dec, [facility] [address] [address] 08 Dec, 2015 Dysthymic disorder F34.1 and Generalized anxiety disorder F41.1 [place] [address] [address] 08 Dec, 2015 Dysuria R30.0 ; Chronic kidney disease, stage 4 (severe) N18.4 ; Hypertension I10 ; Dyspepsia R10.13 ; Yeast dermatitis B37.2 ; Palpitations R00.2 ; Hypothyroid E03.9 ; Functional diarrhea K59.1 and Other seasonal allergic rhinitis J30.2 [facility] [address] [place] [address] Dec, [facility] [address] [place] [address] Nov, Dysuria R30.0 and Stress inc ontinence N39.3 [place] [address] [address] Nov, [place] [address] [address] Nov, [place] [address] [address] Nov, Osteoarthritis of knees, bilateral M17.0 [place] [address] [address] Nov, Dysthymic disorder F34.1 and Generalized anxiety disorder F41.1 [place] [address] [address] Nov, [place] [address] [address] Nov, [place] [address] [address] Nov, Urgency of urination R39.15 [place] [address] [address] Nov, [place] [address] [address] Nov, Chronic kidney disease, stage 4 (severe) N18.4 [place] [address] [address] Oct, Hypertension I10 ; Coronary artery disea se involving [place] coronary artery of [place] heart, angina presence unspecified I25.10 ; Palpitations R00.2 ; Hypothyroid E03.9 ; Right foot pain M79.671 ; Functional diarrhea K59.1 and Other seasonal allergic rhinitis J30.2 [place] [address] [address] Oct, Dysthymic disorder F34.1 and Generalized anxiety disorder F41.1 [place] [address] [address] Sep, [place] [address] [address] Sep, [place] [address] [address] Sep, [place] [address] [address] Sep, [place] [address] [address] Sep, [place] [address] [address] Sep, Dysthymic disorder F34.1 and Generalized anxiety disorder F41.1 [place] [address] [address] 16 Sep, 2015 Asthma with acute exacerbation in adult J45.901 ; Dysuria R30.0 ; Chronic kidney disease, stage 4 (severe) N18.4 and History of anemia Z86.2 [place] [address] [address] Sep, Generalized anxiety disorder F41.1 and D ysthymic disorder F34.1 [place] [address] [address] August, Screening breast examination Z12.39 and Acute recurrent maxillary sinusitis J01.[address] [address] August, Osteoarthritis of knees, bilateral M17.[address] [address] August, Chronic kidney disease, stage 4 (severe) N18.4 ; Acute non-recurrent maxillary sinusitis J01.00 ; Urinary problem R39.89 ; Bowel habit changes R19.4 ; Functional diarrhea K59.1 and History of colon polyps Z86.010 [place] [address] [address] 29 Jul, 2015 Dysthymic disorder F34.1 and Generalized anxiety disorder F41.1 [place] [address] [address] Jul, [place] [address] [address] Jul, Dysthymic disorder F34.1 ; Generalized a nxiety disorder F41.1 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 [place] [address] [address] Jul, [place] [address] [address] Jun, [place] [address] [address] Jun, [place] [address] [address] May, [place] [address] [address] May, Dysthymic disorder F34.1 and Generalized anxiety disorder F41.1 [place] [address] [address] Apr, Kidney disease N28.9 [place] [address] [address] Apr, Generalized anxiety disorder F41.1 and D ysthymic disorder F34.1 [place] [address] [address] Apr, Chronic kidney disease, stage 4 (severe) N18.4 [place] [address] [address] Apr, Generalized anxiety disorder F41.1 ; Fady or depression, recurrent F33.9 and Sleep disturbance G47.9 [place] [address] [address] Mar, Generalized anxiety disorder F41.1 and D ysthymic disorder F34.1 [place] [address] [address] Mar, Generalized anxiety disorder F41.1 ; 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 and Insomnia G47.00 [place] [address] [address] Mar, [place] [address] [address] Mar, [address] [address] Mar, Osteoarthritis of knees, bilateral M17.[address] [address] Mar, Hypertension I10 ; Hypothyroid E03.9 ; D ysthymic disorder F34.1 ; Chronic kidney disease, stage 4 (severe) N18.4 and Nausea & vomiting R11.2 [place] [address] [address] Mar, Generalized anxiety disorder F41.1 ; 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 and Insomnia G47.00 [place] [address] [address] Mar, Dehydration E86.0 ; Chronic kidney disea se, stage 4 (severe) N18.4 and Nausea & vomiting R11.2 [facility] [address] [facility] [id number] [address] [place] [address] Mar, Gastroenteritis K52.9 [place] [address] [address] Mar, [place] [address] [address] Mar, [address] [address] Feb, Dysthymic disorder F34.1 and Generalized anxiety disorder F41.[address] [address] Jan, UTI (urinary tract infection) N39.0 ; As thma J45.909 ; Coronary artery disease involving [place] coronary artery of [place] heart, angina presence unspecified I25.10 ; Hypertension I10 ; Hypothyroid E03.9 ; Vitamin D deficiency E55.9 ; Insomnia G47.00 ; Palpitations R00.2 ; Depressed F32.9 ; Restless leg G25.81 and Anxiety F41.[address] [address] Jan, Dysthymic disorder F34.1 and Generalized anxiety disorder F41.[address] [address] Jan, [address] [address] Dec, [address] [address] Dec, Alkalosis 276.3 ; Chronic kidney disease , Stage IV (severe) 585.4 ; Hyperpotassemia 276.7 ; Secondary hyperparathyroidism, renal 588.81 ; Proteinuria 791.0 ; Unspecified vitamin D deficiency 268.9 ; Anemia in chronic kidney disease 285.21 ; Other and unspecified hyperlipidemia 272.4 ; Hypertension, essential, benign 401.1 and Chronic kidney disease (CKD), stage III (moderate) 585.[address] [address] Dec, [address] [address] Dec, Depressive disorder, not elsewhere class ified 311 and Generalized anxiety disorder 300.02 [place] [address] [address] Dec, [facility] [address] [address] Dec, [place] [address] [address] Nov, Depressive disorder, not elsewhere class ified 311 and Generalized anxiety disorder 300.02 [place] [address] [address] Nov, Arthritis of both knees 716.[address] [address] Nov, PAF (paroxysmal atrial fibrillation) 427 .31 ; CAD (coronary artery disease) 414.00 ; Chest pain 786.50 and Chronic kidney disease (CKD) stage G4/A1, severely decreased glomerular filtration rate (GFR) between 15-29 mL/min/1.73 square meter and albuminuria creatinine ratio less than 30 mg/g 585.[address] [address] Oct, Coronary atherosclerosis of unspecified type of vessel, [place] or graft 414.00 ; Chronic kidney disease, Stage IV (severe) 585.4 ; Hypertension 401.9 and Edema 782.[address] [address] Oct, Depressive disorder, not elsewhere class ified 311 and Generalized anxiety disorder 300.02 [place] [address] [address] Oct, Depressive disorder, not elsewhere class ified 311 and Generalized anxiety disorder 300.02 [place] [address] [address] Oct, [place] [address] [address] Oct, [place] [address] [address] Sep, [facility] [address] [address] Sep, Chronic kidney disease, Stage IV (severe ) 585.4 [place] [address] [address] Sep, [facility] [address] [address] Sep, Coronary atherosclerosis of unspecified type of vessel, [place] or graft 414.00 ; Hypertension 401.9 ; Edema 782.3 and Hypothyroidism 244.9 [place] [address] [address] Sep, Coronary atherosclerosis of unspecified type of vessel, [place] or graft 414.00 ; Hypertension 401.9 ; Fibromyalgia 729.1 ; Edema 782.3 ; Hypothyroidism 244.9 and Anemia 285.[address] [address] Sep, Anxiety disorder, unspecified 300.00 and Depressive disorder, not elsewhere classified [address] [address] Sep, [facility] [address] [place] [address] August, Generalized anxiety disorder 300.[address] [address] August, Closed fracture of lateral malleolus 824 .2 [facility] [address] [place] [address] Jul, [facility] [address] [address] Jul, [address] [address] Jun, [facility] [address] [place] [address] Jun, [facility] [address] [address] Jun, [facility] [place] [facility] [address] [facility] [id number] [facility] [place] [address] Jun, [facility] [place] [facility] [address] [facility] [id number] [facility] [place] [address] Jun, [facility] [place] [facility] [address] [id number] [place] [address] Jun, [facility] [place] [facility] [address] [id number] [facility] [place] [address] May, 2014 [facility] [place] [facility] [address] [facility] [id number] [facility] [place] [address] May, 2014 [facility] [place] [facility] [address] [id number] [place] [address] May, 2014 [facility] [place] [facility] [address] [id number] [place] [address] May, 2014 [facility] [place] [facility] [address] [id number] [place] [address] May, 2014 [facility] [place] [facility] [address] [id number] [place] [address] May, 2014 [facility] [place] [facility] [address] [id number] [place] [address] May, 2014 [facility] [place] [facility] [address] [id number] [place] [address] May, 2014 [facility] [place] [facility] [address] [id number] [place] [address] 10 May, 2014 [facility] [place] [facility] [address] [id number] [place] [address] May, [facility] [place] [facility] [address] [id number] [place] [address] Apr, [facility] [place] [facility] [address] [id number] [place] [address] Apr, [facility] [place] [facility] [address] [id number] [place] [address] Mar, [facility] [place] [facility] [address] [id number] [place] [address] Mar, [facility] [place] [facility] [address] [id number] [place] [address] Mar, [facility] [place] [facility] [address] [id number] [place] [address] Mar, [facility] [place] [facility] [address] [id number] [place] [address] Mar, [facility] [place] [facility] [address] [id number] [place] [address] Mar, [facility] [place] [facility] [address] [id number] [place] [address] Mar, [facility] [place] [facility] [address] [id number] [place] [address] Feb, [facility] [place] [facility] [address] [id number] [place] [address] Feb, [facility] [place] [facility] [address] [id number] [place] [address] Feb, [facility] [place] [facility] [address] [id number] [place] [address] Jan, [facility] [place] [facility] [address] [id number] [place] [address] Jan, [facility] [place] [facility] [address] [id number] [place] [address] Jan, [facility] [place] [facility] [address] [id number] [place] [address] Jan, [facility] [place] [facility] [address] [id number] [place] [address] Jan, [facility] [place] [facility] [address] [id number] [place] [address] Jan, [facility] [place] [facility] [address] [id number] [place] [address] Jan, [facility] [place] [facility] [address] [id number] [place] [address] Jan, [facility] [place] [facility] [address] [facility] [id number] [facility] [address] Jan, [facility] [place] [facility] [address] [facility] [id number] [facility] [place] [address] Jan, [facility] [place] [facility] [address] [facility] [id number] [facility] [place] [address] Nov, [facility] [place] [facility] [address] [facility] [id number] [facility] [place] [address] Nov, [facility] [place] [facility] [address] [facility] [id number] [facility] [address] Nov, [facility] [place] [facility] [address] [facility] [id number] [place] [address] Oct, [facility] [place] [facility] [address] [id number] [place] [address] Oct, [facility] [place] [facility] [address] [id number] [facility] [place] [address] Oct, [facility] [place] [facility] [address] [facility] [id number] [place] [address] Oct, [facility] [place] [facility] [address] [id number] [facility] [address] Oct, [facility] [place] [facility] [address] [facility] [id number] [place] [address] Oct, [facility] [place] [facility] [address] [id number] [place] [address] Oct, [facility] [place] [facility] [address] [facility] [id number] [place] [address] Oct, [facility] [place] [facility] [address] [facility] [id number] [place] [address] Oct, [facility] [place] [facility] [address] [facility] [id number] [place] [address] Sep, [facility] [place] [facility] [address] [id number] [place] [address] Sep, [facility] [place] [facility] [address] [id number] [place] [address] Sep, [facility] [place] [facility] [address] [id number] [place] [address] Sep, [facility] [place] [facility] [address] [id number] [place] [address] Sep, [facility] [place] [facility] [address] [id number] [place] [address] Sep, [facility] [place] [facility] [address] [id number] [place] [address] Sep, [facility] [place] [facility] [address] [id number] [place] [address] Sep, [facility] [place] [facility] [address] [id number] [place] [address] Sep, [facility] [place] [facility] [address] [id number] [place] [address] August, [facility] [place] [facility] [address] [id number] [place] [address] August, [facility] [place] [facility] [address] [id number] [place] [address] August, [facility] [place] [facility] [address] [id number] [place] [address] August, [facility] [place] [facility] [address] [id number] [place] [address] August, [facility] [place] [facility] [address] [id number] [place] [address] August, [facility] [place] [facility] [address] [id number] [place] [address] Jul, [facility] [place] [facility] [address] [id number] [place] [address] Jul, [facility] [place] [facility] [address] [id number] [place] [address] Jul, [facility] [place] [facility] [address] [id number] [place] [address] Jul, [facility] [place] [facility] [address] [id number] [place] [address] Jul, [facility] [place] [facility] [address] [id number] [place] [address] Jul, [facility] [place] [facility] [address] [id number] [place] [address] Jun, [facility] [place] [facility] [address] [id number] [place] [address] Jun, [facility] [place] [facility] [address] [id number] [place] [address] May, [facility] [place] [facility] [address] [id number] [place] [address] May, [facility] [place] [facility] [address] [id number] [place] [address] May, [facility] [place] [facility] [address] [id number] [place] [address] May, [facility] [place] [facility] [address] [id number] [place] [address] Apr, [facility] [place] [facility] [address] [id number] [place] [address] Apr, [facility] [place] [facility] [address] [id number] [place] [address] Mar, [facility] [place] [facility] [address] [id number] [place] [address] Mar, [facility] [place] [facility] [address] [id number] [place] [address] Mar, [facility] [place] [facility] [address] [id number] [place] [address] Mar, [facility] [address] [id number] [place] [address] Mar, [facility] [address] [id number] [place] [address] Mar, [facility] [address] [id number] [place] [address] Feb, [facility] [address] [facility] [id number] [place] [address] Feb, [facility] [address] [id number] [place] [address] Feb, [facility] [address] [id number] [place] [address] Feb, [facility] [address] [id number] [place] [address] Feb, [facility] [address] [id number] [place] [address] Feb, [facility] [address] [id number] [place] [address] Jan, [facility] [address] [id number] [place] [address] Jan, [facility] [address] [id number] [place] [address] Jan, [facility] [address] [id number] [place] [address] Jan, [facility] [address] [id number] [place] [address] 08 Jan, 2013 [facility] [address] [id number] [place] [address] Jan, [facility] [address] [id number] [place] [address] Dec, [facility] [address] [id number] [place] [address] 09 Dec, 2012 [facility] [address] [id number] [place] [address] Nov, [facility] [address] [id number] [place] [address] Nov, [facility] [address] [id number] [place] [address] Oct, [facility] [address] [facility] [id number] [facility] [place] [address] Oct, [facility] [address] [id number] [facility] [place] [address] Oct, [facility] [address] [facility] [id number] [place] [address] Oct, [facility] [address] [id number] [place] [address] Oct, [facility] [address] [id number] [facility] [place] [address] Oct, [facility] [address] [id number] [facility] [place] [address] Sep, [facility] [address] [id number] [place] [address] Sep, [facility] [address] [id number] [place] [address] Sep, [facility] [address] [id number] [place] [address] Sep, [facility] [address] [id number] [place] [address] August, [facility] [address] [id number] [place] [address] August, [facility] [address] [id number] [place] [address] August, [facility] [address] [id number] [place] [address] August, [facility] [place] [facility] [address] [id number] [place] [address] August, [facility] [place] [facility] [address] [id number] [place] [address] Jul, [facility] [place] [facility] [address] [id number] [place] [address] Jul, [facility] [place] [facility] [address] [id number] [place] [address] 15 Jul, 2012 [facility] [address] [id number] [place] [address] Jul, [facility] [place] [facility] [address] [id number] [place] [address] Jul, [facility] [place] [facility] [address] [id number] [place] [address] Jul, [facility] [place] [facility] [address] [id number] [place] [address] Jul, [facility] [place] [facility] [address] [id number] [place] [address] Jul, [facility] [place] [facility] [address] [id number] [place] [address] Jul, [facility] [place] [facility] [address] [id number] [place] [address] Jul, [facility] [address] [id number] Jun, [facility] [place] [facility] [address] [id number] [place] [address] Jun, [facility] [place] [facility] [address] [id number] [place] [address] Jun, [facility] [place] [facility] [address] [id number] [place] [address] Jun, [facility] [place] [facility] [address] [id number] [place] [address] Jun, [facility] [place] [facility] [address] [id number] [place] [address] May, [facility] [place] [facility] [address] [id number] [place] [address] May, [facility] [place] [facility] [address] [id number] [place] [address] May, [facility] [place] [facility] [address] [id number] [place] [address] Apr, [facility] [place] [facility] [address] [id number] [place] [address] Apr, [facility] [place] [facility] [address] [id number] [place] [address] Apr, [facility] [place] [facility] [address] [id number] [place] [address] Apr, [facility] [place] [facility] [address] [id number] [place] [address] Apr, [facility] [place] [facility] [address] [id number] [place] [address] Apr, [facility] [place] [facility] [address] [id number] [place] [address] Mar, [facility] [place] [facility] [address] [id number] [place] [address] Mar, [facility] [place] [facility] [address] [id number] [place] [address] Mar, [facility] [place] [facility] [address] [id number] [place] [address] Mar, [facility] [place] [facility] [address] [id number] [place] [address] Feb, [facility] [place] [facility] [address] [id number] [place] [address] Feb, [facility] [place] [facility] [address] [id number] [place] [address] Feb, [facility] [place] [facility] [address] [id number] [place] [address] Feb, [facility] [place] [facility] [address] [id number] [place] [address] Feb, [facility] [place] [facility] [address] [id number] [place] [address] Feb, [facility] [place] [facility] [address] [id number] [place] [address] Feb, [facility] [place] [facility] [address] [id number] [place] [address] Feb, [facility] [place] [facility] [address] [id number] [place] [address] Feb, 2011 [facility] [place] [facility] [address] [id number] [place] [address] Feb, [facility] [place] [facility] [address] [id number] [place] [address] Feb, [facility] [place] [facility] [address] [id number] [place] [address] Feb, [facility] [place] [facility] [address] [id number] [place] [address] Feb, [facility] [place] [facility] [address] [id number] [place] [address] Feb, [facility] [place] [facility] [address] [id number] [place] [address] Feb, [facility] [place] [facility] [address] [id number] [place] [address] Feb, [facility] [place] [facility] [address] [id number] [place] [address] Jan, [facility] [place] [facility] [address] [id number] [place] [address] Jan, [facility] [place] [facility] [address] [id number] [place] [address] Jan, [facility] [place] [facility] [address] [id number] [place] [address] Jan, [facility] [place] [facility] [address] [id number] [place] [address] 30 Jan, 2012 [facility] [place] [facility] [address] [id number] [place] [address] Jan, [facility] [place] [facility] [address] [id number] [place] [address] Jan, [facility] [place] [facility] [address] [id number] [place] [address] Jan, [facility] [place] [facility] [address] [id number] [place] [address] Jan, [facility] [place] [facility] [address] [id number] [place] [address] 15 Jan, 2011 [facility] [place] [facility] [address] [id number] [place] [address] 15 Jan, 2011 [facility] [place] [facility] [address] [id number] [place] [address] Jan, [facility] [place] [facility] [address] [id number] [place] [address] 26 Sep, 2011 [facility] [place] [facility] [address] [id number] [place] [address] 26 Sep, 2011 [facility] [place] [facility] [address] [id number] [place] [address] 24 Sep, 2011 [facility] [place] [facility] [address] [id number] [place] [address] 23 Sep, 2011 [facility] [place] [facility] [address] [id number] [place] [address] 22 Sep, 2011 [facility] [place] [facility] [address] [id number] [place] [address] 21 Sep, 2011 [facility] [place] [facility] [address] [id number] [place] [address] 20 Sep, 2011 [facility] [place] [facility] [address] [id number] [place] [address] 20 Sep, 2011 [facility] [place] [facility] [address] [id number] [place] [address] 07 Sep, 2011 [facility] [place] [facility] [address] [id number] [place] [address] 06 Sep, 2011 [facility] [place] [facility] [address] [id number] [place] [address] 06 Sep, 2011 [facility] [place] [facility] [address] [id number] [place] [address] 05 Sep, 2011 [facility] [place] [facility] [address] [id number] [place] [address] 23 Nov, 2011 [facility] [place] [facility] [address] [id number] [place] [address] Nov, [facility] [place] [facility] [address] [id number] [facility] [address] Nov, [facility] [place] [facility] [address] [facility] [id number] [facility] [place] [address] Nov, [facility] [place] [facility] [address] [id number] [facility] [address] Nov, [facility] [place] [facility] [address] [id number] [place] [address] Nov, [facility] [place] [facility] [address] [facility] [id number] [place] [address] Nov, [facility] [place] [facility] [address] [id number] [facility] [address] Nov, [facility] [place] [facility] [address] [id number] [facility] [address] Oct, [facility] [place] [facility] [address] [id number] [facility] [place] [address] Oct, [facility] [place] [facility] [address] [id number] [facility] [place] [address] Oct, [facility] [place] [facility] [address] [id number] [facility] [address] Oct, [facility] [place] [facility] [address] [id number] [place] [address] Oct, [facility] [place] [facility] [address] [id number] [place] [address] Oct, [facility] [place] [facility] [address] [id number] [facility] [address] Oct, [facility] [place] [facility] [address] [id number] [place] [address] Sep, [facility] [place] [facility] [address] [id number] [facility] [address] Sep, [facility] [place] [facility] [address] [id number] [facility] [address] August, [facility] [place] [facility] [address] [id number] [place] [address] August, [facility] [place] [facility] [address] [id number] [place] [address] August, [facility] [place] [facility] [address] [id number] [place] [address] August, [facility] [place] [facility] [address] [id number] [place] [address] Jul, [facility] [place] [facility] [address] [id number] [place] [address] Jul, [facility] [place] [facility] [address] [id number] [place] [address] Jul, [facility] [place] [facility] [address] [id number] [place] [address] Jul, [facility] [place] [facility] [address] [id number] [place] [address] Jul, [facility] [place] [facility] [address] [id number] [place] [address] Jul, [facility] [place] [facility] [address] [id number] [place] [address] Jul, [facility] [place] [facility] [address] [id number] [place] [address] Jul, [facility] [place] [facility] [address] [id number] [place] [address] Jul, [facility] [place] [facility] [address] [id number] [place] [address] Jun, [facility] [place] [facility] [address] [id number] [place] [address] 19 Jun, 2011 [facility] [place] [facility] [address] [id number] [place] [address] 15 Jun, 2011 [facility] [place] [facility] [address] [id number] [place] [address] 14 Jun, 2011 [facility] [place] [facility] [address] [id number] [place] [address] Jun, [facility] [address] [id number] [place] [address] Jun, [facility] [place] [facility] [address] [id number] [place] [address] Jun, [facility] [place] [facility] [address] [id number] [place] [address] May, [facility] [place] [facility] [address] [id number] [place] [address] May, [facility] [place] [facility] [address] [id number] [place] [address] May, [facility] [place] [facility] [address] [id number] [place] [address] May, [facility] [place] [facility] [address] [id number] [place] [address] May, [facility] [place] [facility] [address] [id number] [place] [address] Apr, [facility] [place] [facility] [address] [id number] [place] [address] Apr, [facility] [place] [facility] [address] [id number] [place] [address] Apr[facility] [place] [facility] [address] [id number] [place] [address] Apr, [facility] [place] [facility] [address] [id number] [place] [address] Apr, [facility] [place] [facility] [address] [id number] [place] [address] Mar, [facility] [place] [facility] [address] [id number] [place] [address] Mar, [facility] [place] [facility] [address] [id number] [place] [address] Mar, [facility] [place] [facility] [address] [id number] [place] [address] Mar, [facility] [place] [facility] [address] [id number] [place] [address] 08 Mar, 2011 [facility] [place] [facility] [address] [id number] [place] [address] Mar, [facility] [place] [facility] [address] [id number] [place] [address] Mar, [facility] [place] [facility] [address] [id number] [place] [address] Feb, [facility] [place] [facility] [address] [id number] [place] [address] Feb, [facility] [place] [facility] [address] [id number] [place] [address] Feb, [facility] [place] [facility] [address] [id number] [place] [address] Feb, [facility] [place] [facility] [address] [id number] [place] [address] Jan, [facility] [place] [facility] [address] [id number] [place] [address] Jan, [facility] [place] [facility] [address] [id number] [place] [address] Jan, [facility] [place] [facility] [address] [id number] [place] [address] Jan, [facility] [place] [facility] [address] [id number] [place] [address] Nov, [facility] [place] [facility] [address] [id number] [place] [address] Mar, [facility] [place] [facility] [address] [id number] [place] [address] Mar, [facility] [place] [facility] [address] [id number] [place] [address] Mar, [facility] [place] [facility] [address] [id number] [place] [address] Mar, [facility] [place] [facility] [address] [id number] [place] [address] Mar, [facility] [place] [facility] [address] [id number] [place] [address] Mar, [facility] [id number] [place] [address] Feb, [facility] [address] [id number] [place] [address] Feb, [facility] [address] [address] Jan, [facility] [id number] [place] [address] Jan, [facility] [address] [address] Jan, IMMUNIZATIONS No Known Immunizations SOCIAL HISTORY Never Assessed REASON FOR VISIT PLAN OF CARE VITAL SIGNS MEDICATIONS Unknown Medications RESULTS No Results PROCEDURES Procedure Date Ordered Result Body Site COMPREHEN METABOLIC PANEL October 06, 2013 VENIPUNCT, ROUTINE* October 06, 2013 INSTRUCTIONS MEDICATIONS ADMINISTERED No Known Medications [...] History CPAP Noncompliance_ Dr. Madden advises a [employer] driving. Medical History Bacterial meningitis 12/2016 Medical [...] 09-2015 & 2007 Surgical History Bladder surgery [facility] [...] meningitis December 2016 Hospitalization History [facility] psych for SI 1988 Hospitalization History [facility]-Altered mental status 05/2017 Hospitalization History sepsis, UTI, headache 08/03/2018-
--- OUTSIDE RECORDS SUMMARY | 2019-08-01 10:04 | XMS REPORT ---
Author Author Lola BARAJAS Organization [facility] Address [address] [place] [address] Care Team Providers Care Mercury Washer Name Role Phone FABI BARAJAS Unavailable PROBLEMS Type Condition ICD9-CM Code TOQ54-SP Code Onset Dates Condition S tatus SNOMED Code Problem Generalized anxiety disorder F41.1 A ctive 37819218 Problem Low back pain M54.5 Active 044843 009 Problem Insomnia G47.00 Active 943798987 Problem Hypothyroid E03.9 Active 02014396 Problem Palpitations R00.2 Active 9315114 2 Problem Asthma J45.909 Active 182668565 Problem Mixed stress and urge urinary incontinence N39.46 Active 463079410 Problem Fibromyalgia M79.7 Active 2366753 05 Problem Stage 3 chronic kidney disease N18.3 Active 073180022 Problem Body mass index (BMI) of 40.0-44.9 in adult Z68.41 Active 286880513 Problem Seasonal allergic rhinitis due to pollen J30.1 Active 49314705 Problem 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 Active 1475898283058 Problem Primary osteoarthritis of left knee M17.12 Active 711311552 Problem Hypercholesterolemia E78.00 Active 42344244 Problem Essential (primary) hypertension I10 Active 76006781 Problem Restless leg syndrome G25.81 Active 07177926 Problem Chronic pain syndrome G89.4 Active 149479982 Problem Perimenopausal vasomotor symptoms N95.1 Active 217777913 Problem Major depressive disorder, recurrent, moderate F33 .1 Active 549467757 ALLERGIES No Information ENCOUNTERS Encounter Location Date Diagnosis [facility] [address] [id number] [place] [address] Jun, [facility] [address] [facility] [place] [address] May, [facility] [address] [id number] [place] [address] Apr, Major depressive disorder, recurrent, mo derate F33.1 ; Generalized anxiety disorder F41.1 and Dysthymic disorder F34.1 [facility] [address] [address] Apr, Chronic pain syndrome G89.4 [place] [address] [address] Apr, Acute pain of right knee M25.561 [place] [address] [address] Apr, [place] [address] [address] Mar, Major depressive disorder, recurrent, mo derate F33.1 ; Generalized anxiety disorder F41.1 and Dysthymic disorder F34.1 [facility] [address] [facility] [id number] [address] [place] [address] Mar, Fluid collection of middle e ar H65.90 and Dizziness R42 [place] [address] [address] Mar, [place] [address] [address] Mar, [place] [address] [address] Mar, Essential (primary) hypertension I10 ; S tage 3 chronic kidney disease N18.3 ; Hypercholesterolemia E78.00 ; Asthma J45.909 ; Recurrent UTI N39.0 ; Status post shoulder surgery Z98.890 and Encounter for immunization Z23 [place] [address] [address] Mar, Chronic pain syndrome G89.4 [place] [address] [address] Feb, [place] [address] [address] Feb, [place] [address] [address] Feb, Oral thrush B37.0 and Sore throat J02.9 [facility] [address] [address] Feb, Chronic pain syndrome G89.4 [place] [address] [address] Jan, [place] [address] [address] Jan, Chronic pain syndrome G89.4 [place] [address] [address] Jan, Hypercholesterolemia E78.00 [place] [address] [address] Jan, [place] [address] [address] Dec, Chronic kidney disease, stage 4 (severe) N18.4 [place] [address] [address] Dec, Major depressive disorder, recurrent, mo derate F33.1 ; Generalized anxiety disorder F41.1 and Dysthymic disorder F34.1 [place] [address] [address] Dec, Generalized anxiety disorder F41.1 and M shiraor depressive disorder, recurrent episode with anxious distress F33.9 [place] [address] [address] Dec, [place] [address] [address] Dec, [place] [address] [address] Dec, Encounter for immunization Z23 [place] [address] [address] Dec, Diarrhea, unspecified type R19.7 and Hem orrhoids, unspecified hemorrhoid type K64.9 [place] [address] [address] Dec, Encounter for Medicare annual wellness e xam Z00.00 ; Chronic kidney disease, stage 4 (severe) N18.4 ; Encounter for immunization Z23 ; Major depressive disorder, recurrent, moderate F33.1 ; Atherosclerosis of north fork coronary artery of north fork heart with angina pectoris I25.119 ; Asthma J45.909 ; Hypothyroid E03.9 and Fibromyalgia M79.7 [place] [address] [address] Dec, Chronic pain syndrome G89.4 [place] [address] [address] Nov, Major depressive disorder, recurrent, mo derate F33.1 ; Generalized anxiety disorder F41.1 and Dysthymic disorder F34.1 [place] [address] [address] Nov, [place] [address] [address] Nov, Chronic pain syndrome G89.4 [place] [address] [address] Nov, Restless leg syndrome G25.[address] [address] Nov, Pain in right shoulder M25.511 ; Restles s leg syndrome G25.81 ; Other chronic pain G89.29 ; Screening for breast cancer Z12.39 ; Insomnia G47.00 and Morbid obesity E66.01 [place] [address] [address] Nov, [place] [address] [address] Oct, Major depressive disorder, recurrent, mo derate F33.1 ; Generalized anxiety disorder F41.1 and Dysthymic disorder F34.1 [facility] [address] [place] [id number] [place] [address] Oct, [facility] [address] [address] Oct, Cellulitis of left lower extremity L03.1 16 and Morbid obesity E66.01 [facility] [address] [facility] [id number] [address] [place] [address] Oct, [facility] [address] [address] Oct, [facility] [address] [address] Oct, Generalized anxiety disorder F41.1 and Tae donovan depressive disorder, recurrent episode with anxious distress F33.9 [facility] [address] [facility] [id number] [address] [place] [address] Oct, [facility] [address] [address] Oct, Chronic pain syndrome G89.4 [facility] [address] [address] Oct, Chronic pain syndrome G89.4 [facility] [address] [facility] [id number] [address] [place] [address] Oct, UTI symptoms R39.9 ; Acute c ystitis without hematuria N30.00 and Morbid obesity E66.01 [facility] [address] [address] Oct, [facility] [address] [address] Oct, Chronic pain syndrome G89.4 [facility] [address] [address] Sep, [facility] [address] [address] Sep, Generalized anxiety disorder F41.1 and M ajor depressive disorder, recurrent episode with anxious distress F33.9 [place] [address] [address] 17 Sep, 2018 Chronic kidney disease, stage 4 (severe) N18.4 [facility] [address] [address] 2018 Fibromyalgia M79.7 and Chronic pain synd lisseth G89.4 [place] [address] [address] [address] [place] [address] Sep, Chronic pain syndrome G89.4 [place] [address] [address] Sep, [place] [address] [address] Sep, Chronic pain syndrome G89.4 ; Fibromyalg ia M79.7 and Morbid obesity E66.01 [place] [address] [address] August, Generalized anxiety disorder F41.1 and Tae donovan depressive disorder, recurrent episode with anxious distress F33.9 [place] [address] [address] August, Fibromyalgia M79.7 [place] [address] [address] August, Restless leg syndrome G25.81 ; Vitamin D deficiency E55.9 ; Urinary tract infection without hematuria, site unspecified N39.0 ; Pain in right shoulder M25.511 ; Other chronic pain G89.29 ; Biceps tendinitis on right M75.21 and Morbid obesity E66.01 [place] [address] [address] Jul, Urinary tract infection without hematuri a, site unspecified N39.0 and Morbid obesity E66.01 [place] [address] [address] Jul, [facility] [address] [address] Jul, [facility] [address] [address] Jul, Fibromyalgia M79.7 [facility] [address] [address] Jul, Acute pain of right shoulder M25.511 [facility] [address] [address] Jul, Acute pain of right shoulder M25.511 and Morbid obesity E66.01 [place] [address] [address] Jun, [place] [address] [address] Jun, Generalized anxiety disorder F41.1 and M ajor depressive disorder, recurrent episode with anxious distress F33.9 [place] [address] [address] Jun, [place] [address] [address] Jun, Fibromyalgia M79.7 [facility] [address] [facility] [id number] [address] [place] [address] Jun, Acute pain of right shoulder M25.511 ; Acute pain of right hip M25.551 and Morbid obesity E66.01 [facility] [address] [address] 11 May, 2018 Burning with urination R30.0 ; Vaginal d ischarge N89.8 ; Chronic kidney disease, stage 4 (severe) N18.4 ; Body mass index (BMI) of 40.0-44.9 in adult Z68.41 and Morbid obesity E66.01 [facility] [address] [address] May, Fibromyalgia M79.7 [facility] [address] [address] May, Generalized anxiety disorder F41.1 and M shiraor depressive disorder, recurrent episode with anxious distress F33.9 [facility] [address] [address] Apr, [facility] [address] [address] Apr, Fibromyalgia M79.7 [facility] [address] [facility] [id number] [address] [place] [address] Mar, Acute UTI N39.0 and Dysuria R30.0 [facility] [address] [address] Mar, Fibromyalgia M79.7 [facility] [address] [address] 15 Feb, 2018 [facility] [address] [address] Feb, [facility] [address] [address] Feb, [facility] [address] [address] Feb, Fibromyalgia M79.7 [facility] [address] [address] 08 Feb, 2018 Complicated UTI (urinary tract infection ) N39.0 [facility] [address] [address] Feb, [facility] [address] [address] Jan, Generalized anxiety disorder F41.1 and Tae donovan depressive disorder, recurrent episode with anxious distress F33.9 [facility] [address] [facility] [id number] [address] [place] [address] Jan, Acute conjunctivitis of left eye, unspecified acute conjunctivitis type H10.32 [place] [address] [address] Jan, [place] [address] [address] Jan, Acute non-recurrent maxillary sinusitis J01.00 ; Dysuria R30.0 ; Perimenopausal vasomotor symptoms N95.1 and Fibromyalgia M79.7 [place] [address] [address] Dec, Vitamin D deficiency E55.9 [place] [address] [address] Dec, Vitamin D deficiency E55.9 [place] [address] [address] Dec, Vitamin D deficiency E55.9 [place] [address] [address] Dec, [place] [address] [address] Dec, Fibromyalgia M79.7 [place] [address] [address] Nov, [place] [address] [address] Nov, [place] [address] [address] Nov, [place] [address] [address] Nov, Fibromyalgia M79.7 ; Vision changes H53. 9 ; Chest wall pain R07.89 and Chronic pain syndrome G89.4 [place] [address] [address] Nov, [place] [address] [address] Nov, Rash of hands R21 [place] [address] [address] Nov, Generalized anxiety disorder F41.1 and M zion depressive disorder, recurrent episode with anxious distress F33.9 [facility] [address] [address] Nov, Fibromyalgia M79.7 [facility] [address] [address] Nov, Complicated UTI (urinary tract infection ) N39.0 [facility] [address] [address] Oct, [facility] [address] [address] Oct, Generalized anxiety disorder F41.1 and Tae dnoovan depressive disorder, recurrent episode with anxious distress F33.9 [place] [address] [address] Oct, [facility] [address] [address] Oct, Fibromyalgia M79.7 [facility] [address] [address] Sep, Restless leg syndrome G25.81 and Restles s leg G25.81 [place] [address] [address] Sep, [place] [address] [address] Sep, Seasonal allergic rhinitis due to pollen J30.1 ; Screening for breast cancer Z12.31 ; Chest pain at rest R07.9 ; Restless leg syndrome G25.81 ; Essential (primary) hypertension I10 and Depressed F32.9 [facility] [address] [address] August, Fibromyalgia M79.7 [facility] [address] [address] August, [facility] [address] [address] August, [place] [address] [address] August, Abnormal chest CT R93.8 [place] [address] [address] August, Generalized anxiety disorder F41.1 and M shiraor depressive disorder, recurrent episode with anxious distress F33.9 [place] [address] [address] August, Abnormal chest CT R93.8 [place] [address] [address] Jul, [place] [address] [address] Jul, Chronic kidney disease, stage 4 (severe) N18.4 [place] [address] [address] Jul, [place] [address] [address] Jul, Restless leg G25.81 ; Mixed stress and u rge urinary incontinence N39.46 and Fibromyalgia M79.7 [place] [address] [address] Jul, Chronic kidney disease, stage 4 (severe) N18.4 [place] [address] [address] Jun, Orthostatic hypotension I95.1 ; Chronic kidney disease, stage 4 (severe) N18.4 ; Chest wall discomfort R07.89 and Body mass index (BMI) of 40.0- 44.9 in adult Z68.41 [place] [address] [address] Jun, [place] [address] [address] Jun, Orthostatic hypotension I95.1 [place] [address] [place] [id number] [place] [address] Jun, [facility] [address] [facility] [id number] [address] [place] [address] Jun, Orthostatic hypotension I95. 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 [place] [address] [address] May, Chronic kidney disease, stage 4 (severe) N18.4 [facility] [address] [address] May, Chronic kidney disease, stage 4 (severe) N18.4 [facility] [address] [address] May, Abnormal chest [address] R93.8 [facility] [address] [address] May, [facility] [address] [address] May, [facility] [address] [address] May, Generalized anxiety disorder F41.1 and M ajor depressive disorder, recurrent episode with anxious distress F33.9 [facility] [address] [address] May, Mood disorder F39 [facility] [address] [address] Apr, [facility] [address] [address] Apr, Infected skin lesion L08.[address] rain of right shoulder region, initial encounter S46.911A [place] [address] [address] Apr, Generalized anxiety disorder F41.1 and M ajor depressive disorder, recurrent episode with anxious distress F33.9 [place] [address] [address] Apr, [facility] [address] [address] Apr, Recent urinary tract infection Z87.440 a nd Hypothyroid E03.9 [place] [address] [address] Apr, Generalized anxiety disorder F41.1 and M ajor depressive disorder, recurrent episode with anxious distress F33.9 [place] [address] [address] Apr, Recent urinary tract infection Z87.440 [facility] [address] [address] Mar, [facility] [address] [facility] [id number] [address] [place] [address] Mar, Dysuria R30.0 ; Acute cystit is without hematuria N30.00 and BMI 40.0-44.9, adult Z68.41 [facility] [address] [address] Mar, [place] [address] [address] Mar, [place] [address] [address] Mar, Generalized anxiety disorder F41.1 and Tae donovan depressive disorder, recurrent episode with anxious distress F33.9 [place] [address] [address] Feb, Conjunctivitis, bacterial H10.9 [place] [address] [address] Feb, [facility] [address] [place] [address] Feb, Conjunctivitis, bacterial H1 0.9 [place] [address] [address] Feb, [facility] [address] [place] [address] Feb, Dysuria R30.0 ; Acute cystit is N30.00 and BMI 40.0-44.9, adult Z68.41 [place] [address] [address] Feb, [place] [address] [address] Feb, Generalized anxiety disorder F41.1 and Tae donovan depressive disorder, recurrent episode with anxious distress F33.9 [place] [address] [address] Feb, Mood disorder F39 and BMI 40.0-44.9, feli lt Z68.41 [place] [address] [address] Jan, [place] [address] [address] Jan, [place] [address] [address] Jan, Hypothyroid E03.9 [place] [address] [address] Jan, [place] [address] [address] Jan, Chronic kidney disease, unspecified N18. 9 ; Hypokalemia E87.6 ; Essential (primary) hypertension I10 ; Fibromyalgia M79.7 ; Coronary artery disease involving north fork coronary artery of north fork heart, angina presence unspecified I25.10 ; Hypothyroid E03.9 and Encounter for immunization Z23 [place] [address] [address] Jan, Hypothyroid E03.9 [place] [address] [address] Jan, [place] [address] [address] Dec, Vitamin D deficiency E55.9 [place] [address] [address] 28 Dec, 2016 Primary osteoarthritis of left knee M17. 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 [place] [address] [address] 19 Dec, 2016 Fibromyalgia M79.7 [place] [address] [address] 18 Dec, 2016 Mood disorder F39 [place] [address] [address] 13 Dec, 2016 [place] [address] [address] 13 Dec, 2016 Generalized anxiety disorder F41.1 and M shiraor depressive disorder, recurrent episode with anxious distress F33.9 [place] [address] [address] 11 Dec, 2016 [place] [address] [address] 08 Dec, 2016 Streptococcal meningitis G00.2 [facility] [id number] [place] [address] 07 Dec, 2016 Streptococcal meningitis G00.2 [facility] [id number] [place] [address] Dec, [facility] [id number] [place] [address] Dec, Streptococcal meningitis G00.2 [facility] [id number] [place] [address] Dec, [facility] [address] [address] Dec, Major depressive disorder, recurrent epi sode with anxious distress F33.9 [place] [id number] [place] [address] Nov, Fever, unspecified fever cause R50.9 [place] [address] [id number] [place] [address] Nov, [place] [address] [address] Nov, Hypothyroid E03.9 [place] [id number] [place] [address] Nov, Generalized anxiety disorder F41.1 and M shiraor depressive disorder, recurrent episode with anxious distress F33.9 [place] [id number] [place] [address] Nov, [facility] [address] [facility] [place] [id number] Oct, Dental examination Z01.20 [place] [id number] [place] [address] Oct, Generalized anxiety disorder F41.1 and M ajor depressive disorder, recurrent episode with anxious distress F33.9 [place] [address] [id number] [place] [address] Oct, Chronic kidney disease, stage 4 (severe) N18.4 [place] [address] [address] Oct, [place] [address] [address] Oct, Fibromyalgia M79.7 [place] [address] [address] Oct, [address] [address] Oct, Generalized anxiety disorder F41.1 ; Fady or depressive disorder, recurrent episode with anxious distress F33.9 and Bipolar disorder, current episode manic without psychotic features F31.10 [place] [address] [address] Sep, [address] [address] Sep, [address] [address] Sep, Vitamin D deficiency E55.[address] [address] Sep, Vitamin D deficiency E55.9 [place] [address] [address] Sep, [address] [address] Sep, Chronic kidney disease, stage 4 (severe) N18.4 ; Hypothyroid E03.9 ; Restless leg G25.81 ; Fibromyalgia M79.7 ; Essential (primary) hypertension I10 ; Vitamin D deficiency E55.9 ; Dyspepsia R10.13 ; Anemia in chronic kidney disease D63.1 ; Chronic kidney disease, unspecified N18.9 ; Coronary artery disease involving north fork coronary artery of north fork heart, angina presence unspecified I25.10 ; Screening breast examination Z12.39 and Low back pain M54.[address] [place] [address] August, Generalized anxiety disorder F41.1 and Tae donovan depressive disorder, recurrent episode with anxious distress F33.9 [place] [address] [address] August, Generalized anxiety disorder F41.1 and M zion depressive disorder, recurrent episode with anxious distress F33.9 [place] [address] [address] August, Fibromyalgia M79.7 [place] [address] [address] Jul, Generalized anxiety disorder F41.1 and Tae donovan depressive disorder, recurrent episode with anxious distress F33.9 [place] [address] [address] Jul, Fibromyalgia M79.7 [place] [address] [address] Jul, Generalized anxiety disorder F41.1 [place] [address] [address] May, [place] [address] [address] May, Hypothyroid E03.9 [place] [address] [address] May, Chronic kidney disease, stage 4 (severe) N18.4 ; Hypothyroid E03.9 ; Restless leg G25.81 ; Fibromyalgia M79.7 ; Essential (primary) hypertension I10 ; Vitamin D deficiency E55.9 ; Dyspepsia R10.13 ; Acute non-recurrent maxillary sinusitis J01.00 ; Anemia in chronic kidney disease D63.1 ; Chronic kidney disease, unspecified N18.9 and Coronary artery disease involving north fork coronary artery of north fork heart, angina presence unspecified I25.10 [place] [address] [address] May, Vitamin D deficiency, unspecified E55.9 [facility] [address] [facility] [place] [address] May, Generalized anxiety disorder F41.1 and M shiraor depressive disorder, recurrent episode with anxious distress F33.9 [place] [id number] [address] Apr, Pain in right knee M25.561 and Pain in l eft knee M25.562 [place] [address] [address] Apr, [place] [address] [address] Apr, [place] [address] [address] Apr, [place] [address] [address] Mar, Generalized anxiety disorder F41.1 and M zion depressive disorder, recurrent episode with anxious distress F33.9 [place] [address] [address] Mar, Generalized anxiety disorder F41.1 and M shiraor depressive disorder, recurrent episode with anxious distress F33.9 [place] [address] [address] Mar, [place] [address] [address] Mar, [facility] [address] [address] Mar, [facility] [address] [address] Mar, Asthma J45.909 and Fibromyalgia M79.7 [place] [address] [address] Mar, Chronic kidney disease, stage 4 (severe) N18.4 ; Vitamin D deficiency E55.9 and Essential (primary) hypertension I10 [place] [address] [address] Feb, [facility] [address] [address] 08 Feb, 2016 Dysuria R30.0 ; Mixed stress and urge ur inary incontinence N39.46 ; Fibromyalgia M79.7 and Chronic kidney disease, stage IV (severe) N18.4 [facility] [address] [address] Feb, Chronic kidney disease, stage 4 (severe) N18.4 [facility] [address] [address] Feb, Chronic kidney disease, stage 4 (severe) N18.4 [facility] [address] [address] Feb, [facility] [address] [address] Feb, Vitamin D deficiency, unspecified E55.9 [facility] [address] [address] Jan, [facility] [address] [address] Jan, [facility] [address] [address] 30 Dec, 2015 [facility] [address] [address] Dec, Chronic kidney disease, stage 4 (severe) N18.4 [facility] [address] [address] Dec, Dysthymic disorder F34.1 and Generalized anxiety disorder F41.1 [facility] [address] [address] 27 Dec, 2015 [facility] [address] [address] Dec, [facility] [address] [address] 08 Dec, 2015 Dysthymic disorder F34.1 and Generalized anxiety disorder F41.1 [place] [address] [address] Dec, Dysuria R30.0 ; Chronic kidney disease, stage 4 (severe) N18.4 ; Hypertension I10 ; Dyspepsia R10.13 ; Yeast dermatitis B37.2 ; Palpitations R00.2 ; Hypothyroid E03.9 ; Functional diarrhea K59.1 and Other seasonal allergic rhinitis J30.2 [facility] [address] [place] [address] Dec, [facility] [place] [address] [address] Nov, Dysuria R30.0 and Stress inc ontinence N39.3 [place] [address] [address] Nov, [place] [address] [address] Nov, [place] [address] [address] Nov, Osteoarthritis of knees, bilateral M17.0 [place] [address] [address] Nov, Dysthymic disorder F34.1 and Generalized anxiety disorder F41.1 [place] [address] [address] Nov, [place] [address] [address] Nov, [place] [address] [address] Nov, Urgency of urination R39.15 [place] [address] [address] Nov, [place] [address] [address] Nov, Chronic kidney disease, stage 4 (severe) N18.4 [place] [address] [address] Oct, Hypertension I10 ; Coronary artery disea se involving north fork coronary artery of north fork heart, angina presence unspecified I25.10 ; Palpitations R00.2 ; Hypothyroid E03.9 ; Right foot pain M79.671 ; Functional diarrhea K59.1 and Other seasonal allergic rhinitis J30.2 [place] [address] [address] Oct, Dysthymic disorder F34.1 and Generalized anxiety disorder F41.1 [place] [address] [address] Sep, [place] [address] [address] Sep, [place] [address] [address] Sep, [place] [address] [address] Sep, [place] [address] [address] Sep, [address] [address] Sep, Dysthymic disorder F34.1 and Generalized anxiety disorder F41.[address] [address] 16 Sep, 2015 Asthma with acute exacerbation in adult J45.901 ; Dysuria R30.0 ; Chronic kidney disease, stage 4 (severe) N18.4 and History of anemia Z86.2 [place] [address] [address] 2015 Generalized anxiety disorder F41.1 and D ysthymic disorder F34.1 [place] [address] [address] August, Screening breast examination Z12.39 and Acute recurrent maxillary sinusitis J01.01 [place] [address] [address] August, Osteoarthritis of knees, bilateral M17.0 [place] [address] [address] August, Chronic kidney disease, stage 4 (severe) N18.4 ; Acute non-recurrent maxillary sinusitis J01.00 ; Urinary problem R39.89 ; Bowel habit changes R19.4 ; Functional diarrhea K59.1 and History of colon polyps Z86.010 [place] [address] [address] Jul, Dysthymic disorder F34.1 and Generalized anxiety disorder F41.1 [place] [address] [address] Jul, [place] [address] [address] Jul, Dysthymic disorder F34.1 ; Generalized a nxiety disorder F41.1 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 [place] [address] [address] Jul, [place] [address] [address] Jun, [place] [address] [address] Jun, [place] [address] [address] May, [place] [address] [address] May, Dysthymic disorder F34.1 and Generalized anxiety disorder F41.1 [place] [address] [address] Apr, Kidney disease N28.9 [place] [address] [address] Apr, Generalized anxiety disorder F41.1 and D ysthymic disorder F34.1 [place] [address] [address] Apr, Chronic kidney disease, stage 4 (severe) N18.4 [place] [address] [address] Apr, Generalized anxiety disorder F41.1 ; Fady or depression, recurrent F33.9 and Sleep disturbance G47.9 [place] [address] [address] Mar, Generalized anxiety disorder F41.1 and D ysthymic disorder F34.1 [place] [address] [address] Mar, Generalized anxiety disorder F41.1 ; 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 and Insomnia G47.00 [place] [address] [address] Mar, [place] [address] [address] Mar, [place] [address] [address] Mar, Osteoarthritis of knees, bilateral M17.[address] [address] Mar, Hypertension I10 ; Hypothyroid E03.9 ; D ysthymic disorder F34.1 ; Chronic kidney disease, stage 4 (severe) N18.4 and Nausea & vomiting R11.[address] [address] Mar, Generalized anxiety disorder F41.1 ; 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 and Insomnia G47.00 [place] [address] [address] Mar, Dehydration E86.0 ; Chronic kidney disea se, stage 4 (severe) N18.4 and Nausea & vomiting R11.2 [facility] [address] [facility] [id number] [address] [place] [address] Mar, Gastroenteritis K52.9 [facility] [address] [id number] [place] [address] Mar, [address] [address] Mar, [facility] [address] [address] Feb, Dysthymic disorder F34.1 and Generalized anxiety disorder F41.[address] [address] Jan, UTI (urinary tract infection) N39.0 ; As thma J45.909 ; Coronary artery disease involving north fork coronary artery of north fork heart, angina presence unspecified I25.10 ; Hypertension I10 ; Hypothyroid E03.9 ; Vitamin D deficiency E55.9 ; Insomnia G47.00 ; Palpitations R00.2 ; Depressed F32.9 ; Restless leg G25.81 and Anxiety F41.[address] [address] Jan, Dysthymic disorder F34.1 and Generalized anxiety disorder F41.[address] [address] Jan, [address] [address] Dec, [address] [address] Dec, Alkalosis 276.3 ; Chronic kidney disease , Stage IV (severe) 585.4 ; Hyperpotassemia 276.7 ; Secondary hyperparathyroidism, renal 588.81 ; Proteinuria 791.0 ; Unspecified vitamin D deficiency 268.9 ; Anemia in chronic kidney disease 285.21 ; Other and unspecified hyperlipidemia 272.4 ; Hypertension, essential, benign 401.1 and Chronic kidney disease (CKD), stage III (moderate) 585.3 [place] [address] [address] Dec, [address] [address] Dec, Depressive disorder, not elsewhere class ified 311 and Generalized anxiety disorder 300.02 [place] [address] [address] Dec, [place] [address] [address] Dec, [address] [address] Nov, Depressive disorder, not elsewhere class ified 311 and Generalized anxiety disorder 300.[address] [address] Nov, Arthritis of both knees 716.[address] [address] Nov, PAF (paroxysmal atrial fibrillation) 427 .31 ; CAD (coronary artery disease) 414.00 ; Chest pain 786.50 and Chronic kidney disease (CKD) stage G4/A1, severely decreased glomerular filtration rate (GFR) between 15-29 mL/min/1.73 square meter and albuminuria creatinine ratio less than 30 mg/g 585.[address] [address] Oct, Coronary atherosclerosis of unspecified type of vessel, north fork or graft 414.00 ; Chronic kidney disease, Stage IV (severe) 585.4 ; Hypertension 401.9 and Edema 782.[address] [address] Oct, Depressive disorder, not elsewhere class ified 311 and Generalized anxiety disorder 300.[address] [address] Oct, Depressive disorder, not elsewhere class ified 311 and Generalized anxiety disorder 300.02 [facility] [address] [address] Oct, [facility] [address] [place] [address] Oct, [facility] [address] [address] Sep, [address] [address] Sep, Chronic kidney disease, Stage IV (severe ) 585.[address] [address] Sep, [address] [address] Sep, Coronary atherosclerosis of unspecified type of vessel, north fork or graft 414.00 ; Hypertension 401.9 ; Edema 782.3 and Hypothyroidism 244.[address] [address] Sep, Coronary atherosclerosis of unspecified type of vessel, north fork or graft 414.00 ; Hypertension 401.9 ; Fibromyalgia 729.1 ; Edema 782.3 ; Hypothyroidism 244.9 and Anemia 285.[address] [address] Sep, Anxiety disorder, unspecified 300.00 and Depressive disorder, not elsewhere classified [address] [address] Sep, [address] [address] August, Generalized anxiety disorder 300.[address] [address] August, Closed fracture of lateral malleolus 824 [address] [address] Jul, [facility] [address] [place] [address] Jul, [facility] [place] [facility] [address] [id number] [place] [address] Jun, [facility] [place] [facility] [address] [id number] [place] [address] Jun, [facility] [place] [facility] [address] [id number] [place] [address] Jun, [facility] [place] [facility] [address] [id number] [place] [address] Jun, [facility] [place] [facility] [address] [facility] [id number] [facility] [address] Jun, [facility] [place] [facility] [address] [id number] [place] [address] Jun, [facility] [place] [facility] [address] [id number] [place] [address] May, 2014 [facility] [place] [facility] [address] [id number] [place] [address] 19 May, 2014 [facility] [place] [facility] [address] [id number] [place] [address] 18 May, 2014 [facility] [place] [facility] [address] [id number] [place] [address] 18 May, 2014 [facility] [place] [facility] [address] [id number] [place] [address] 16 May, 2014 [facility] [place] [facility] [address] [id number] [place] [address] 16 May, 2014 [facility] [place] [facility] [address] [id number] [place] [address] 13 May, 2014 [facility] [place] [facility] [address] [id number] [place] [address] 13 May, 2014 [facility] [place] [facility] [address] [id number] [place] [address] 10 May, 2014 [facility] [place] [facility] [address] [id number] [place] [address] 10 May, 2014 [facility] [place] [facility] [address] [id number] [place] [address] Apr, [facility] [place] [facility] [address] [id number] [place] [address] Apr, [facility] [place] [facility] [address] [id number] [place] [address] Mar, [facility] [place] [facility] [address] [id number] [place] [address] Mar, [facility] [place] [facility] [address] [id number] [place] [address] Mar, [facility] [place] [facility] [address] [id number] [place] [address] Mar, [facility] [place] [facility] [address] [id number] [place] [address] Mar, [facility] [place] [facility] [address] [id number] [place] [address] Mar, [facility] [place] [facility] [address] [id number] [place] [address] Mar, [facility] [place] [facility] [address] [id number] [place] [address] Feb, [facility] [place] [facility] [address] [id number] [place] [address] Feb, [facility] [place] [facility] [address] [id number] [place] [address] Feb, [facility] [place] [facility] [address] [id number] [place] [address] Jan, [facility] [place] [facility] [address] [id number] [place] [address] Jan, [facility] [place] [facility] [address] [id number] [place] [address] Jan, [facility] [place] [facility] [address] [id number] [place] [address] Jan, [facility] [place] [facility] [address] [id number] [place] [address] Jan, [facility] [place] [facility] [address] [facility] [id number] [facility] [address] Jan, [facility] [place] [facility] [address] [facility] [id number] [place] [address] Jan, [facility] [place] [facility] [address] [facility] [id number] [facility] [address] Jan, [facility] [place] [facility] [address] [facility] [id number] [facility] [place] [address] Jan, [facility] [place] [facility] [address] [facility] [id number] [facility] [address] Jan, [facility] [place] [facility] [address] [facility] [id number] [place] [address] Nov, [facility] [place] [facility] [address] [id number] [place] [address] Nov, [facility] [place] [facility] [address] [id number] [place] [address] Nov, [facility] [place] [facility] [address] [facility] [id number] [place] [address] Oct, [facility] [place] [facility] [address] [facility] [id number] [facility] [address] Oct, [facility] [place] [facility] [address] [facility] [id number] [place] [address] Oct, [facility] [place] [facility] [address] [id number] [place] [address] Oct, [facility] [place] [facility] [address] [facility] [id number] [place] [address] Oct, [facility] [place] [facility] [address] [id number] [place] [address] Oct, [facility] [place] [facility] [address] [facility] [id number] [place] [address] Oct, [facility] [place] [facility] [address] [id number] [place] [address] Oct, [facility] [place] [facility] [address] [id number] [place] [address] Oct, [facility] [place] [facility] [address] [id number] [place] [address] Sep, [facility] [place] [facility] [address] [id number] [place] [address] Sep, [facility] [place] [facility] [address] [id number] [place] [address] Sep, [facility] [place] [facility] [address] [id number] [place] [address] Sep, [facility] [place] [facility] [address] [id number] [place] [address] Sep, [facility] [place] [facility] [address] [id number] [place] [address] Sep, [facility] [place] [facility] [address] [id number] [place] [address] Sep, [facility] [place] [facility] [address] [id number] [place] [address] Sep, [facility] [place] [facility] [address] [id number] [place] [address] Sep, [facility] [place] [facility] [address] [id number] [place] [address] August, [facility] [place] [facility] [address] [id number] [place] [address] August, [facility] [place] [facility] [address] [id number] [place] [address] August, [facility] [place] [facility] [address] [id number] [place] [address] August, [facility] [place] [facility] [address] [id number] [place] [address] August, [facility] [place] [facility] [address] [id number] [place] [address] August, [facility] [place] [facility] [address] [id number] [place] [address] Jul, [facility] [place] [facility] [address] [id number] [place] [address] Jul, [facility] [place] [facility] [address] [id number] [place] [address] Jul, [facility] [place] [facility] [address] [id number] [place] [address] Jul, [facility] [place] [facility] [address] [id number] [place] [address] Jul, [facility] [place] [facility] [address] [id number] [place] [address] Jul, [facility] [place] [facility] [address] [id number] [place] [address] Jun, [facility] [place] [facility] [address] [id number] [place] [address] Jun, [facility] [place] [facility] [address] [id number] [place] [address] May, [facility] [place] [facility] [address] [id number] [place] [address] May, [facility] [place] [facility] [address] [id number] [place] [address] May, [facility] [place] [facility] [address] [id number] [place] [address] May, [facility] [place] [facility] [address] [id number] [place] [address] Apr, [facility] [place] [facility] [address] [id number] [place] [address] Apr, [facility] [place] [facility] [address] [id number] [place] [address] Mar, [facility] [place] [facility] [address] [id number] [place] [address] Mar, [facility] [place] [facility] [address] [id number] [place] [address] 17 Mar, 2013 [facility] [place] [facility] [address] [id number] [place] [address] Mar, [facility] [place] [facility] [address] [id number] [place] [address] Mar, [facility] [place] [facility] [address] [id number] [place] [address] Mar, [facility] [place] [facility] [address] [id number] [place] [address] Feb, [facility] [place] [facility] [address] [id number] [place] [address] Feb, [facility] [place] [facility] [address] [id number] [place] [address] Feb, [facility] [address] [id number] [place] [address] Feb, [facility] [address] [id number] [place] [address] Feb, [facility] [address] [id number] [place] [address] Feb, [facility] [address] [id number] [place] [address] Jan, [facility] [address] [id number] [place] [address] 24 Jan, 2013 [facility] [address] [id number] [place] [address] Jan, [facility] [address] [id number] [place] [address] 10 Jan, 2013 [facility] [address] [id number] [place] [address] 08 Jan, 2013 [facility] [address] [id number] [place] [address] 04 Jan, 2013 [facility] [address] [id number] [place] [address] 12 Dec, 2012 [facility] [address] [id number] [place] [address] 09 Dec, 2012 [facility] [address] [facility] [id number] [facility] [place] [address] Nov, [facility] [address] [id number] [facility] [place] [address] Nov, [facility] [address] [facility] [id number] [facility] [place] [address] Oct, [facility] [address] [id number] [facility] [place] [address] Oct, [facility] [address] [facility] [id number] [facility] [place] [address] Oct, [facility] [address] [facility] [id number] [facility] [place] [address] Oct, [facility] [address] [id number] [place] [address] Oct, [facility] [address] [id number] [place] [address] Oct, [facility] [address] [id number] [place] [address] Sep, [facility] [address] [facility] [id number] [facility] [place] [address] Sep, [facility] [address] [id number] [place] [address] Sep, [facility] [address] [id number] [place] [address] Sep, [facility] [address] [id number] [place] [address] August, [facility] [address] [id number] [place] [address] August, [facility] [address] [id number] [place] [address] August, [facility] [address] [id number] [place] [address] August, [facility] [place] [facility] [address] [id number] [place] [address] August, [facility] [address] [id number] [place] [address] Jul, [facility] [address] [facility] [id number] [place] [address] Jul, [facility] [address] [facility] [id number] [place] [address] Jul, [facility] [address] [facility] [id number] [place] [address] Jul, [facility] [place] [facility] [address] [facility] [id number] [place] [address] Jul, [facility] [address] [facility] [id number] [place] [address] Jul, [facility] [address] [facility] [id number] [place] [address] Jul, [facility] [address] [facility] [id number] [place] [address] Jul, [facility] [address] [facility] [id number] [place] [address] Jul, [facility] [address] [facility] [id number] [place] [address] Jul, [facility] [id number] [place] [id number] Jun, [facility] [address] [facility] [id number] [place] [address] Jun, [facility] [place] [facility] [address] [facility] [id number] [place] [address] Jun, [facility] [place] [facility] [address] [facility] [id number] [place] [address] Jun, [facility] [place] [facility] [address] [facility] [id number] [place] [address] Jun, [facility] [place] [facility] [address] [facility] [id number] [place] [address] May, [facility] [place] [facility] [address] [facility] [id number] [place] [address] May, [facility] [place] [facility] [address] [id number] [place] [address] May, [facility] [place] [facility] [address] [facility] [id number] [place] [address] Apr, [facility] [place] [facility] [address] [facility] [id number] [place] [address] Apr, [facility] [place] [facility] [address] [facility] [id number] [place] [address] Apr, [facility] [place] [facility] [address] [id number] [place] [address] Apr, [facility] [place] [facility] [address] [id number] [place] [address] Apr, [facility] [place] [facility] [address] [id number] [place] [address] Apr, [facility] [place] [facility] [address] [id number] [place] [address] Mar, [facility] [place] [facility] [address] [id number] [place] [address] Mar, [facility] [place] [facility] [address] [id number] [place] [address] Mar, [facility] [place] [facility] [address] [id number] [place] [address] Mar, [facility] [place] [facility] [address] [id number] [place] [address] Feb, [facility] [place] [facility] [address] [id number] [place] [address] Feb, [facility] [place] [facility] [address] [id number] [place] [address] Feb, [facility] [place] [facility] [address] [id number] [place] [address] Feb, [facility] [place] [facility] [address] [id number] [place] [address] Feb, [facility] [place] [facility] [address] [id number] [place] [address] Feb, [facility] [place] [facility] [address] [id number] [place] [address] Feb, [facility] [place] [facility] [address] [id number] [place] [address] Feb, [facility] [place] [facility] [address] [id number] [place] [address] Feb, [facility] [place] [facility] [address] [id number] [place] [address] Feb, [facility] [place] [facility] [address] [id number] [place] [address] Feb, [facility] [place] [facility] [address] [id number] [place] [address] Feb, [facility] [place] [facility] [address] [id number] [place] [address] Feb, [facility] [place] [facility] [address] [id number] [place] [address] Feb, [facility] [place] [facility] [address] [id number] [place] [address] Feb, [facility] [place] [facility] [address] [id number] [place] [address] Feb, [facility] [place] [facility] [address] [id number] [place] [address] Jan, [facility] [place] [facility] [address] [id number] [place] [address] Jan, [facility] [place] [facility] [address] [facility] [id number] [place] [address] Jan, [facility] [place] [facility] [id number] [place] [address] Jan, [facility] [place] [facility] [address] [id number] [place] [address] Jan, [facility] [place] [facility] [address] [id number] [place] [address] Jan, [facility] [place] [facility] [address] [id number] [place] [address] 25 Jan, 2011 [facility] [place] [facility] [address] [id number] [place] [address] 16 Jan, 2011 [facility] [place] [facility] [address] [id number] [place] [address] 16 Jan, 2011 [facility] [place] [facility] [address] [id number] [place] [address] 15 Jan, 2012 [facility] [place] [facility] [address] [id number] [place] [address] 15 Jan, 2012 [facility] [place] [facility] [address] [facility] [id number] [place] [address] Jan, [facility] [place] [facility] [address] [id number] [place] [address] 26 Sep, 2011 [facility] [place] [facility] [address] [id number] [place] [address] 26 Sep, 2011 [facility] [place] [facility] [address] [facility] [id number] [place] [address] 24 Sep, 2011 [facility] [place] [facility] [address] [id number] [place] [address] 23 Sep, 2011 [facility] [place] [facility] [address] [id number] [place] [address] 22 Sep, 2011 [facility] [place] [facility] [address] [id number] [place] [address] 21 Sep, 2011 [facility] [place] [facility] [address] [id number] [place] [address] 20 Sep, 2011 [facility] [place] [facility] [address] [id number] [place] [address] 20 Sep, 2011 [facility] [place] [facility] [address] [id number] [place] [address] 07 Sep, 2011 [facility] [place] [facility] [address] [id number] [place] [address] 06 Sep, 2011 [facility] [place] [facility] [address] [id number] [place] [address] 06 Dec, 2011 [facility] [place] [facility] [address] [id number] [facility] [address] 05 Dec, 2011 [facility] [place] [facility] [address] [facility] [id number] [facility] [place] [address] Nov, [facility] [place] [facility] [address] [facility] [id number] [facility] [address] Nov, [facility] [place] [facility] [address] [facility] [id number] [place] [address] Nov, [facility] [place] [facility] [address] [facility] [id number] [facility] [place] [address] Nov, [facility] [place] [facility] [address] [facility] [id number] [facility] [address] Nov, [facility] [place] [facility] [address] [facility] [id number] [facility] [address] Nov, [facility] [place] [facility] [address] [id number] [facility] [address] Nov, [facility] [place] [facility] [address] [facility] [id number] [facility] [address] Nov, [facility] [place] [facility] [address] [facility] [id number] [facility] [address] Oct, [facility] [place] [facility] [address] [facility] [id number] [facility] [address] Oct, [facility] [place] [facility] [address] [facility] [id number] [facility] [address] Oct, [facility] [place] [facility] [address] [facility] [id number] [facility] [address] Oct, [facility] [place] [facility] [address] [facility] [id number] [place] [address] Oct, [facility] [place] [facility] [address] [facility] [id number] [facility] [address] 16 Oct, 2011 [facility] [place] [facility] [address] [id number] [facility] [address] Oct, [facility] [place] [facility] [address] [facility] [id number] [place] [address] Sep, [facility] [place] [facility] [address] [id number] [place] [address] Sep, [facility] [place] [facility] [address] [id number] [place] [address] August, [facility] [place] [facility] [address] [id number] [place] [address] August, [facility] [place] [facility] [address] [id number] [place] [address] August, [facility] [place] [facility] [address] [id number] [place] [address] August, [facility] [place] [facility] [address] [facility] [id number] [place] [address] Jul, [facility] [place] [facility] [address] [id number] [place] [address] Jul, [facility] [place] [facility] [address] [facility] [id number] [place] [address] Jul, [facility] [place] [facility] [address] [facility] [id number] [place] [address] Jul, [facility] [place] [facility] [address] [facility] [id number] [place] [address] Jul, [facility] [place] [facility] [address] [id number] [place] [address] Jul, [facility] [place] [facility] [address] [facility] [id number] [place] [address] Jul, [facility] [place] [facility] [address] [facility] [id number] [place] [address] Jul, [facility] [place] [facility] [address] [id number] [place] [address] Jul, [facility] [place] [facility] [address] [id number] [place] [address] Jun, [facility] [place] [facility] [address] [facility] [id number] [place] [address] Jun, [facility] [address] [facility] [id number] [place] [address] 15 Jun, 2011 [facility] [place] [facility] [address] [id number] [place] [address] 14 Jun, 2011 [facility] [place] [facility] [address] [id number] [place] [address] 12 Jun, 2011 [facility] [place] [facility] [address] [id number] [place] [address] Jun, [facility] [place] [facility] [address] [id number] [place] [address] Jun, [facility] [place] [facility] [address] [id number] [place] [address] May, [facility] [place] [facility] [address] [id number] [place] [address] 24 May, 2011 [facility] [place] [facility] [address] [facility] [id number] [place] [address] May, [facility] [place] [facility] [address] [id number] [place] [address] 16 May, 2011 [facility] [place] [facility] [address] [facility] [id number] [place] [address] May, [facility] [place] [facility] [address] [id number] [place] [address] Apr, [facility] [place] [facility] [address] [facility] [id number] [place] [address] Apr, [facility] [place] [facility] [address] [id number] [place] [address] Apr, [facility] [place] [facility] [address] [id number] [place] [address] Apr, [facility] [place] [facility] [address] [facility] [id number] [place] [address] Apr, [facility] [place] [facility] [address] [facility] [id number] [place] [address] Mar, [facility] [place] [facility] [address] [id number] [place] [address] Mar, [facility] [place] [facility] [address] [facility] [id number] [place] [address] Mar, [facility] [place] [facility] [address] [facility] [id number] [place] [address] Mar, [facility] [place] [facility] [address] [facility] [id number] [place] [address] Mar, [facility] [place] [facility] [address] [id number] [place] [address] Mar, [facility] [place] [facility] [address] [facility] [id number] [place] [address] Mar, [facility] [place] [facility] [address] [id number] [place] [address] Feb, [facility] [place] [facility] [address] [facility] [id number] [place] [address] Feb, [facility] [place] [facility] [address] [id number] [place] [address] Feb, [facility] [place] [facility] [address] [facility] [id number] [place] [address] Feb, [facility] [place] [facility] [address] [facility] [id number] [place] [address] Jan, [facility] [place] [facility] [address] [facility] [id number] [place] [address] Jan, [facility] [place] [facility] [address] [id number] [place] [address] Jan, [facility] [place] [facility] [address] [facility] [id number] [place] [address] Jan, [facility] [place] [facility] [address] [id number] [place] [address] Nov, [facility] [place] [facility] [address] [facility] [id number] [place] [address] Mar, [facility] [place] [facility] [address] [facility] [id number] [place] [address] Mar, [facility] [place] [facility] [id number] [place] [address] Mar, [facility] [address] [address] Mar, [facility] [address] [address] Mar, [facility] [address] [address] Mar, [facility] [address] [address] Feb, [facility] [address] [address] Feb, [facility] [address] [address] Jan, [facility] [address] [address] Jan, [facility] [address] [address] Jan, IMMUNIZATIONS No Known Immunizations SOCIAL HISTORY [...] History CPAP Noncompliance_ Dr. Madden advises a Bridge [employer] driving. Medical History Bacterial meningitis 12/2016 Medical [...]
--- OUTSIDE RECORDS SUMMARY | 2019-08-01 10:05 | XMS REPORT ---
Author Author JahLola Doctor Organization [facility] Address Unknown Phone Unavailable Care Team Providers Care Net Coordinator Name Role Phone Migration, Doctor Unavailable Unavailable PROBLEMS Type Condition ICD9-CM Code DFS35-HQ Code Onset Dates Condition S tatus SNOMED Code Problem Generalized anxiety disorder F41.1 A ctive 17573440 Problem Low back pain M54.5 Active 789181 009 Problem Insomnia G47.00 Active 336955206 Problem Hypothyroid E03.9 Active 24777391 Problem Palpitations R00.2 Active 3094350 2 Problem Asthma J45.909 Active 544194820 Problem Mixed stress and urge urinary incontinence N39.46 Active 490453256 Problem Fibromyalgia M79.7 Active 2383919 05 Problem Stage 3 chronic kidney disease N18.3 Active 853007373 Problem Body mass index (BMI) of 40.0-44.9 in adult Z68.41 Active 141908642 Problem Seasonal allergic rhinitis due to pollen J30.1 Active 66316920 Problem 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 Active 3219747101413 Problem Primary osteoarthritis of left knee M17.12 Active 024046969 Problem Hypercholesterolemia E78.00 Active 50144250 Problem Essential (primary) hypertension I10 Active 93302558 Problem Restless leg syndrome G25.81 Active 59639225 Problem Chronic pain syndrome G89.4 Active 800017403 Problem Perimenopausal vasomotor symptoms N95.1 Active 569615320 Problem Major depressive disorder, recurrent, moderate F33 .1 Active 602501070 ALLERGIES No Information ENCOUNTERS Encounter Location Date Diagnosis [facility] [address] [id number] [place] [address] May, [facility] [address] [place] [id number] [place] [address] Apr, [facility] [address] [id number] [place] [address] Apr, Chronic pain syndrome G89.4 [place] [address] [address] Apr, Acute pain of right knee M25.561 [place] [address] [address] Apr, [place] [address] [address] Mar, Major depressive disorder, recurrent, mo derate F33.1 ; Generalized anxiety disorder F41.1 and Dysthymic disorder F34.1 [facility] [address] [facility] [id number] [address] [place] [address] Mar, Fluid collection of middle e ar H65.90 and Dizziness R42 [place] [address] [address] Mar, [place] [address] [address] Mar, [place] [address] [address] Mar, Essential (primary) hypertension I10 ; S tage 3 chronic kidney disease N18.3 ; Hypercholesterolemia E78.00 ; Asthma J45.909 ; Recurrent UTI N39.0 ; Status post shoulder surgery Z98.890 and Encounter for immunization Z23 [place] [address] [address] Mar, Chronic pain syndrome G89.4 [place] [address] [address] Feb, [place] [address] [address] Feb, [place] [address] [address] Feb, Oral thrush B37.0 and Sore throat J02.9 [place] [address] [address] Feb, Chronic pain syndrome G89.4 [place] [address] [address] 30 Jan, 2019 [place] [address] [address] 14 Jan, 2019 Chronic pain syndrome G89.4 [place] [address] [address] 02 Jan, 2019 Hypercholesterolemia E78.00 [place] [address] [address] Jan, [place] [address] [address] Dec, Chronic kidney disease, stage 4 (severe) N18.4 [place] [address] [address] Dec, Major depressive disorder, recurrent, mo derate F33.1 ; Generalized anxiety disorder F41.1 and Dysthymic disorder F34.1 [place] [address] [address] Dec, Generalized anxiety disorder F41.1 and M ajor depressive disorder, recurrent episode with anxious distress F33.9 [place] [address] [address] Dec, [place] [address] [address] Dec, [place] [address] [address] Dec, Encounter for immunization Z23 [place] [address] [address] Dec, Diarrhea, unspecified type R19.7 and Hem orrhoids, unspecified hemorrhoid type K64.9 [place] [address] [address] Dec, Encounter for Medicare annual wellness e xam Z00.00 ; Chronic kidney disease, stage 4 (severe) N18.4 ; Encounter for immunization Z23 ; Major depressive disorder, recurrent, moderate F33.1 ; Atherosclerosis of [place] coronary artery of [place] heart with angina pectoris I25.119 ; Asthma J45.909 ; Hypothyroid E03.9 and Fibromyalgia M79.7 [place] [address] [address] Dec, Chronic pain syndrome G89.4 [place] [address] [address] Nov, Major depressive disorder, recurrent, mo derate F33.1 ; Generalized anxiety disorder F41.1 and Dysthymic disorder F34.1 [place] [address] [address] Nov, [place] [address] [address] Nov, Chronic pain syndrome G89.4 [place] [address] [address] Nov, Restless leg syndrome G25.81 [place] [address] [address] Nov, Pain in right shoulder M25.511 ; Restles s leg syndrome G25.81 ; Other chronic pain G89.29 ; Screening for breast cancer Z12.39 ; Insomnia G47.00 and Morbid obesity E66.01 [place] [address] [address] Nov, [place] [address] [address] Oct, Major depressive disorder, recurrent, mo derate F33.1 ; Generalized anxiety disorder F41.1 and Dysthymic disorder F34.1 [place] [address] [address] Oct, [place] [address] [address] Oct, Cellulitis of left lower extremity L03.1 16 and Morbid obesity E66.01 [facility] [address] [facility] [id number] [place] [address] Oct, [facility] [address] [address] Oct, [facility] [address] [address] Oct, Generalized anxiety disorder F41.1 and M zion depressive disorder, recurrent episode with anxious distress F33.9 [facility] [address] [facility] [id number] [place] [address] 15 Oct, 2018 [facility] [address] [address] Oct, Chronic pain syndrome G89.4 [facility] [address] [address] Oct, Chronic pain syndrome G89.4 [facility] [address] [place] [id number] [address] [place] [address] Oct, UTI symptoms R39.9 ; Acute c ystitis without hematuria N30.00 and Morbid obesity E66.01 [facility] [address] [address] Oct, [facility] [address] [address] Oct, Chronic pain syndrome G89.4 [place] [address] [address] Sep, [place] [address] [address] Sep, Generalized anxiety disorder F41.1 and M zion depressive disorder, recurrent episode with anxious distress F33.9 [place] [address] [address] 17 Sep, 2018 Chronic kidney disease, stage 4 (severe) N18.4 [place] [address] [address] Sep, Fibromyalgia M79.7 and Chronic pain synd lisseth G89.4 [facility] [address] [place] [id number] [place] [address] Sep, [facility] [address] [place] [address] Sep, Chronic pain syndrome G89.4 [facility] [address] [place] [id number] [place] [address] Sep, [facility] [address] [address] Sep, Chronic pain syndrome G89.4 ; Fibromyalg ia M79.7 and Morbid obesity E66.01 [facility] [address] [address] August, Generalized anxiety disorder F41.1 and M ajor depressive disorder, recurrent episode with anxious distress F33.9 [facility] [address] [place] [id number] [place] [address] August, Fibromyalgia M79.7 [facility] [address] [place] [id number] [place] [address] August, Restless leg syndrome G25.81 ; Vitamin D deficiency E55.9 ; Urinary tract infection without hematuria, site unspecified N39.0 ; Pain in right shoulder M25.511 ; Other chronic pain G89.29 ; Biceps tendinitis on right M75.21 and Morbid obesity E66.01 [facility] [address] [place] [id number] [place] [address] Jul, Urinary tract infection without hematuri a, site unspecified N39.0 and Morbid obesity E66.01 [facility] [address] [place] [id number] [place] [address] Jul, [facility] [address] [address] Jul, [facility] [address] [address] Jul, Fibromyalgia M79.7 [facility] [address] [address] Jul, Acute pain of right shoulder M25.511 [place] [address] [address] Jul, Acute pain of right shoulder M25.511 and Morbid obesity E66.01 [place] [address] [address] Jun, [place] [address] [address] Jun, Generalized anxiety disorder F41.1 and M zion depressive disorder, recurrent episode with anxious distress F33.9 [place] [address] [address] Jun, [place] [address] [address] Jun, Fibromyalgia M79.7 [facility] [address] [facility] [id number] [place] [address] Jun, Acute pain of right shoulder M25.511 ; Acute pain of right hip M25.551 and Morbid obesity E66.01 [place] [address] [address] May, Burning with urination R30.0 ; Vaginal d ischarge N89.8 ; Chronic kidney disease, stage 4 (severe) N18.4 ; Body mass index (BMI) of 40.0-44.9 in adult Z68.41 and Morbid obesity E66.01 [place] [address] [address] May, Fibromyalgia M79.7 [place] [address] [address] May, Generalized anxiety disorder F41.1 and M zion depressive disorder, recurrent episode with anxious distress F33.9 [place] [address] [address] Apr, [place] [address] [address] 08 Apr, 2018 Fibromyalgia M79.7 [facility] [address] [facility] [id number] [address] [place] [address] 14 Mar, 2018 Acute UTI N39.0 and Dysuria R30.0 [facility] [address] [address] 10 Mar, 2018 Fibromyalgia M79.7 [facility] [address] [address] 15 Feb, 2018 [facility] [address] [address] Feb, [facility] [address] [address] Feb, [place] [address] [address] Feb, Fibromyalgia M79.7 [facility] [address] [address] 08 Feb, 2018 Complicated UTI (urinary tract infection ) N39.0 [facility] [address] [address] Feb, [facility] [address] [address] Jan, Generalized anxiety disorder F41.1 and Tae donovan depressive disorder, recurrent episode with anxious distress F33.9 [facility] [address] [facility] [id number] [address] [place] [address] Jan, Acute conjunctivitis of left eye, unspecified acute conjunctivitis type H10.32 [facility] [address] [address] Jan, [place] [address] [address] Jan, Acute non-recurrent maxillary sinusitis J01.00 ; Dysuria R30.0 ; Perimenopausal vasomotor symptoms N95.1 and Fibromyalgia M79.7 [facility] [address] [address] 28 Dec, 2017 Vitamin D deficiency E55.9 [facility] [address] [address] Dec, Vitamin D deficiency E55.9 [facility] [address] [address] 24 Dec, 2017 Vitamin D deficiency E55.9 [facility] [address] [address] Dec, [place] [address] [address] Dec, Fibromyalgia M79.7 [place] [address] [address] Nov, [place] [address] [address] Nov, [facility] [address] [address] Nov, [place] [address] [address] Nov, Fibromyalgia M79.7 ; Vision changes H53. 9 ; Chest wall pain R07.89 and Chronic pain syndrome G89.4 [place] [address] [address] Nov, [place] [address] [address] Nov, Rash of hands R21 [place] [address] [address] Nov, Generalized anxiety disorder F41.1 and M ajor depressive disorder, recurrent episode with anxious distress F33.9 [place] [address] [address] Nov, Fibromyalgia M79.7 [facility] [address] [address] Nov, Complicated UTI (urinary tract infection ) N39.0 [place] [address] [address] Oct, [facility] [address] [address] Oct, Generalized anxiety disorder F41.1 and Tae donovan depressive disorder, recurrent episode with anxious distress F33.9 [place] [address] [address] Oct, [place] [address] [address] Oct, Fibromyalgia M79.7 [place] [address] [address] Sep, Restless leg syndrome G25.81 and Restles s leg G25.81 [place] [address] [address] Sep, [place] [address] [address] Sep, Seasonal allergic rhinitis due to pollen J30.1 ; Screening for breast cancer Z12.31 ; Chest pain at rest R07.9 ; Restless leg syndrome G25.81 ; Essential (primary) hypertension I10 and Depressed F32.9 [place] [address] [address] August, Fibromyalgia M79.7 [place] [address] [address] August, [place] [address] [address] August, [place] [address] [address] August, Abnormal chest CT R93.8 [place] [address] [address] August, Generalized anxiety disorder F41.1 and Tae donovan depressive disorder, recurrent episode with anxious distress F33.9 [place] [address] [address] August, Abnormal chest CT R93.8 [place] [address] [address] Jul, [place] [address] [address] Jul, Chronic kidney disease, stage 4 (severe) N18.4 [place] [address] [address] Jul, [place] [address] [address] Jul, Restless leg G25.81 ; Mixed stress and u rge urinary incontinence N39.46 and Fibromyalgia M79.7 [place] [address] [address] Jul, Chronic kidney disease, stage 4 (severe) N18.4 [place] [address] [address] Jun, Orthostatic hypotension I95.1 ; Chronic kidney disease, stage 4 (severe) N18.4 ; Chest wall discomfort R07.89 and Body mass index (BMI) of 40.0- 44.9 in adult Z68.41 [place] [address] [address] Jun, [place] [address] [address] Jun, Orthostatic hypotension I95.1 [place] [address] [address] Jun, [facility] [address] [facility] [id number] [address] [place] [address] Jun, Orthostatic hypotension I95. 1 ; Dysuria R30.0 and Acute cystitis without hematuria N30.00 [place] [address] [place] [address] [place] [address] Jun, [facility] [address] [address] Jun, Chronic kidney disease, stage 4 (severe) N18.4 [facility] [address] [address] Jun, Fibromyalgia M79.7 [facility] [address] [address] Jun, [facility] [address] [address] Jun, [facility] [address] [address] May, Abnormal chest CT R93.8 and 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 [facility] [address] [address] May, Chronic kidney disease, stage 4 (severe) N18.4 [facility] [address] [address] May, Chronic kidney disease, stage 4 (severe) N18.4 [facility] [address] [address] May, Abnormal chest [address] R93.8 [facility] [address] [address] May, [facility] [address] [address] May, [facility] [address] [address] May, Generalized anxiety disorder F41.1 and Tae donovan depressive disorder, recurrent episode with anxious distress F33.9 [facility] [address] [address] May, Mood disorder F39 [facility] [address] [address] Apr, [facility] [id number] [place] [address] Apr, Infected skin lesion L08.[address] rain of right shoulder region, initial encounter S46.911A [facility] [id number] [place] [address] Apr, Generalized anxiety disorder F41.1 and Tae donovan depressive disorder, recurrent episode with anxious distress F33.9 [facility] [address] [address] Apr, [place] [address] [address] Apr, Recent urinary tract infection Z87.440 a nd Hypothyroid E03.9 [place] [address] [address] Apr, Generalized anxiety disorder F41.1 and Tae donovan depressive disorder, recurrent episode with anxious distress F33.9 [facility] [id number] [place] [address] Apr, Recent urinary tract infection Z87.440 [place] [address] [address] Mar, [facility] [address] [facility] [id number] [address] [place] [address] Mar, Dysuria R30.0 ; Acute cystit is without hematuria N30.00 and BMI 40.0-44.9, adult Z68.41 [facility] [id number] [place] [address] Mar, [facility] [address] [address] Mar, [facility] [address] [address] Mar, Generalized anxiety disorder F41.1 and Tae donovan depressive disorder, recurrent episode with anxious distress F33.9 [place] [address] [address] Feb, Conjunctivitis, bacterial H10.9 [place] [address] [address] Feb, [facility] [address] [facility] [id number] [place] [address] Feb, Conjunctivitis, bacterial H1 0.9 [place] [address] [address] Feb, [facility] [address] [facility] [id number] [address] [place] [address] Feb, Dysuria R30.0 ; Acute cystit is N30.00 and BMI 40.0-44.9, adult Z68.41 [place] [address] [address] Feb, [place] [address] [address] Feb, Generalized anxiety disorder F41.1 and M ajor depressive disorder, recurrent episode with anxious distress F33.9 [place] [address] [address] Feb, Mood disorder F39 and BMI 40.0-44.9, feli lt Z68.41 [place] [address] [address] Jan, [place] [address] [address] Jan, [place] [address] [address] Jan, Hypothyroid E03.9 [place] [address] [address] Jan, [place] [address] [address] Jan, Chronic kidney disease, unspecified N18. 9 ; Hypokalemia E87.6 ; Essential (primary) hypertension I10 ; Fibromyalgia M79.7 ; Coronary artery disease involving la posta coronary artery of [place] post[place] heart, angina presence unspecified I25.10 ; Hypothyroid E03.9 and Encounter for immunization Z23 [place] [address] [address] 04 Jan, 2017 Hypothyroid E03.9 [place] [address] [address] Jan, [place] [address] [address] 28 Dec, 2016 Vitamin D deficiency E55.9 [place] [address] [address] Dec, Primary osteoarthritis of left knee M17. 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 [place] [address] [address] 19 Dec, 2016 Fibromyalgia M79.7 [place] [address] [address] 18 Dec, 2016 Mood disorder F39 [place] [address] [address] 13 Dec, 2016 [place] [address] [address] 13 Dec, 2016 Generalized anxiety disorder F41.1 and Tae donovan depressive disorder, recurrent episode with anxious distress F33.9 [place] [address] [address] 11 Dec, 2016 [place] [address] [address] 08 Dec, 2016 Streptococcal meningitis G00.2 [place] [address] [address] 07 Dec, 2016 Streptococcal meningitis G00.2 [place] [address] [address] 07 Dec, 2016 [place] [id number] [place] [address] 06 Dec, 2016 Streptococcal meningitis G00.2 [facility] [id number] [place] [address] Dec, [facility] [address] [address] Dec, Major depressive disorder, recurrent epi sode with anxious distress F33.9 [facility] [id number] [place] [address] Nov, Fever, unspecified fever cause R50.9 [facility] [id number] [place] [address] Nov, [facility] [address] [address] Nov, Hypothyroid E03.9 [facility] [address] [address] Nov, Generalized anxiety disorder F41.1 and M shiraor depressive disorder, recurrent episode with anxious distress F33.9 [facility] [id number] [place] [address] Nov, [facility] [id number] [place] [id number] Oct, Dental examination Z01.20 [facility] [id number] [place] [address] Oct, Generalized anxiety disorder F41.1 and M ajor depressive disorder, recurrent episode with anxious distress F33.9 [facility] [id number] [place] [address] Oct, Chronic kidney disease, stage 4 (severe) N18.4 [facility] [address] [address] Oct, [facility] [address] [address] Oct, Fibromyalgia M79.7 [facility] [address] [address] Oct, [address] [address] Oct, Generalized anxiety disorder F41.1 ; Fady or depressive disorder, recurrent episode with anxious distress F33.9 and Bipolar disorder, current episode manic without psychotic features F31.10 [address] [place] [address] [address] Sep, [place] [address] [address] Sep, [address] [address] Sep, Vitamin D deficiency E55.[address] [address] Sep, Vitamin D deficiency E55.[address] [address] Sep, [place] [address] [address] Sep, Chronic kidney disease, stage 4 (severe) N18.4 ; Hypothyroid E03.9 ; Restless leg G25.81 ; Fibromyalgia M79.7 ; Essential (primary) hypertension I10 ; Vitamin D deficiency E55.9 ; Dyspepsia R10.13 ; Anemia in chronic kidney disease D63.1 ; Chronic kidney disease, unspecified N18.9 ; Coronary artery disease involving la posta coronary artery of la posta heart, angina presence unspecified I25.10 ; Screening breast examination Z12.39 and Low back pain M54.[address] [address] August, Generalized anxiety disorder F41.1 and Tae donovan depressive disorder, recurrent episode with anxious distress F33.[address] [address] August, Generalized anxiety disorder F41.1 and Tae donovan depressive disorder, recurrent episode with anxious distress F33.9 [place] [address] [address] August, Fibromyalgia M79.7 [place] [address] [address] Jul, Generalized anxiety disorder F41.1 and Tae donovan depressive disorder, recurrent episode with anxious distress F33.9 [place] [address] [address] Jul, Fibromyalgia M79.7 [place] [address] [address] Jul, Generalized anxiety disorder F41.1 [place] [address] [address] May, [address] [address] May, Hypothyroid E03.9 [place] [address] [address] May, Chronic kidney disease, stage 4 (severe) N18.4 ; Hypothyroid E03.9 ; Restless leg G25.81 ; Fibromyalgia M79.7 ; Essential (primary) hypertension I10 ; Vitamin D deficiency E55.9 ; Dyspepsia R10.13 ; Acute non-recurrent maxillary sinusitis J01.00 ; Anemia in chronic kidney disease D63.1 ; Chronic kidney disease, unspecified N18.9 and Coronary artery disease involving la posta coronary artery of [place] post[place] heart, angina presence unspecified I25.10 [place] [address] [address] May, Vitamin D deficiency, unspecified E55.[address] [address] May, Generalized anxiety disorder F41.1 and Tae donovan depressive disorder, recurrent episode with anxious distress F33.9 [place] [address] [address] Apr, Pain in right knee M25.561 and Pain in l eft knee M25.562 [place] [address] [address] Apr, [place] [address] [address] Apr, [place] [address] [address] Apr, [place] [address] [address] Mar, Generalized anxiety disorder F41.1 and M shiraor depressive disorder, recurrent episode with anxious distress F33.9 [place] [address] [address] Mar, Generalized anxiety disorder F41.1 and M shiraor depressive disorder, recurrent episode with anxious distress F33.9 [place] [address] [address] Mar, [place] [address] [address] Mar, [place] [address] [address] Mar, [place] [address] [address] Mar, Asthma J45.909 and Fibromyalgia M79.7 [place] [address] [address] Mar, Chronic kidney disease, stage 4 (severe) N18.4 ; Vitamin D deficiency E55.9 and Essential (primary) hypertension I10 [place] [address] [address] Feb, [place] [address] [address] Feb, Dysuria R30.0 ; Mixed stress and urge ur inary incontinence N39.46 ; Fibromyalgia M79.7 and Chronic kidney disease, stage IV (severe) N18.4 [facility] [address] [address] Feb, Chronic kidney disease, stage 4 (severe) N18.4 [facility] [address] [address] Feb, Chronic kidney disease, stage 4 (severe) N18.4 [facility] [address] [address] Feb, [facility] [address] [address] Feb, Vitamin D deficiency, unspecified E55.9 [place] [address] [address] Jan, [place] [address] [address] Jan, [place] [address] [address] 30 Dec, 2015 [place] [address] [address] Dec, Chronic kidney disease, stage 4 (severe) N18.4 [place] [address] [address] Dec, Dysthymic disorder F34.1 and Generalized anxiety disorder F41.1 [place] [address] [address] 27 Dec, 2015 [facility] [address] [address] Dec, [facility] [address] [address] 08 Dec, 2015 Dysthymic disorder F34.1 and Generalized anxiety disorder F41.1 [place] [address] [address] 08 Dec, 2015 Dysuria R30.0 ; Chronic kidney disease, stage 4 (severe) N18.4 ; Hypertension I10 ; Dyspepsia R10.13 ; Yeast dermatitis B37.2 ; Palpitations R00.2 ; Hypothyroid E03.9 ; Functional diarrhea K59.1 and Other seasonal allergic rhinitis J30.2 [facility] [address] [place] [address] Dec, [facility] [address] [address] Nov, Dysuria R30.0 and Stress inc ontinence N39.3 [place] [address] [address] Nov, [place] [address] [address] Nov, [place] [address] [address] Nov, Osteoarthritis of knees, bilateral M17.0 [place] [address] [address] Nov, Dysthymic disorder F34.1 and Generalized anxiety disorder F41.1 [place] [address] [address] Nov, [place] [address] [address] Nov, [place] [address] [address] Nov, Urgency of urination R39.15 [place] [address] [address] Nov, [place] [address] [address] Nov, Chronic kidney disease, stage 4 (severe) N18.4 [place] [address] [address] Oct, Hypertension I10 ; Coronary artery disea se involving la posta coronary artery of la posta heart, angina presence unspecified I25.10 ; Palpitations R00.2 ; Hypothyroid E03.9 ; Right foot pain M79.671 ; Functional diarrhea K59.1 and Other seasonal allergic rhinitis J30.2 [place] [address] [address] Oct, Dysthymic disorder F34.1 and Generalized anxiety disorder F41.1 [place] [address] [address] Sep, [place] [address] [address] Sep, [place] [address] [address] Sep, [place] [address] [address] Sep, [place] [address] [address] Sep, [place] [address] [address] Sep, Dysthymic disorder F34.1 and Generalized anxiety disorder F41.1 [place] [address] [address] 16 Sep, 2015 Asthma with acute exacerbation in adult J45.901 ; Dysuria R30.0 ; Chronic kidney disease, stage 4 (severe) N18.4 and History of anemia Z86.2 [place] [address] [address] Sep, Generalized anxiety disorder F41.1 and D ysthymic disorder F34.1 [place] [address] [address] August, Screening breast examination Z12.39 and Acute recurrent maxillary sinusitis J01.[address] [address] August, Osteoarthritis of knees, bilateral M17.[address] [address] August, Chronic kidney disease, stage 4 (severe) N18.4 ; Acute non-recurrent maxillary sinusitis J01.00 ; Urinary problem R39.89 ; Bowel habit changes R19.4 ; Functional diarrhea K59.1 and History of colon polyps Z86.010 [place] [address] [address] 29 Jul, 2015 Dysthymic disorder F34.1 and Generalized anxiety disorder F41.1 [place] [address] [address] Jul, [place] [address] [address] Jul, Dysthymic disorder F34.1 ; Generalized a nxiety disorder F41.1 and 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 [place] [address] [address] Jul, [place] [address] [address] Jun, [place] [address] [address] Jun, [place] [address] [address] May, [place] [address] [address] May, Dysthymic disorder F34.1 and Generalized anxiety disorder F41.1 [place] [address] [address] Apr, Kidney disease N28.9 [place] [address] [address] Apr, Generalized anxiety disorder F41.1 and D ysthymic disorder F34.1 [place] [address] [address] Apr, Chronic kidney disease, stage 4 (severe) N18.4 [place] [address] [address] Apr, Generalized anxiety disorder F41.1 ; Fady or depression, recurrent F33.9 and Sleep disturbance G47.9 [place] [address] [address] Mar, Generalized anxiety disorder F41.1 and D ysthymic disorder F34.1 [place] [address] [address] Mar, Generalized anxiety disorder F41.1 ; 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 and Insomnia G47.00 [place] [address] [address] Mar, [place] [address] [address] Mar, [address] [address] Mar, Osteoarthritis of knees, bilateral M17.[address] [address] Mar, Hypertension I10 ; Hypothyroid E03.9 ; D ysthymic disorder F34.1 ; Chronic kidney disease, stage 4 (severe) N18.4 and Nausea & vomiting R11.2 [place] [address] [address] Mar, Generalized anxiety disorder F41.1 ; 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 and Insomnia G47.00 [place] [address] [address] Mar, Dehydration E86.0 ; Chronic kidney disea se, stage 4 (severe) N18.4 and Nausea & vomiting R11.2 [facility] [address] [facility] [id number] [address] [place] [address] Mar, Gastroenteritis K52.9 [place] [address] [address] Mar, [place] [address] [address] Mar, [address] [address] Feb, Dysthymic disorder F34.1 and Generalized anxiety disorder F41.[address] [address] Jan, UTI (urinary tract infection) N39.0 ; As thma J45.909 ; Coronary artery disease involving la posta coronary artery of la post[place] heart, angina presence unspecified I25.10 ; Hypertension I10 ; Hypothyroid E03.9 ; Vitamin D deficiency E55.9 ; Insomnia G47.00 ; Palpitations R00.2 ; Depressed F32.9 ; Restless leg G25.81 and Anxiety F41.[address] [address] Jan, Dysthymic disorder F34.1 and Generalized anxiety disorder F41.[address] [address] Jan, [address] [address] Dec, [address] [address] Dec, Alkalosis 276.3 ; Chronic kidney disease , Stage IV (severe) 585.4 ; Hyperpotassemia 276.7 ; Secondary hyperparathyroidism, renal 588.81 ; Proteinuria 791.0 ; Unspecified vitamin D deficiency 268.9 ; Anemia in chronic kidney disease 285.21 ; Other and unspecified hyperlipidemia 272.4 ; Hypertension, essential, benign 401.1 and Chronic kidney disease (CKD), stage III (moderate) 585.[address] [address] Dec, [address] [address] Dec, Depressive disorder, not elsewhere class ified 311 and Generalized anxiety disorder 300.02 [place] [address] [address] Dec, [facility] [address] [address] Dec, [place] [address] [address] Nov, Depressive disorder, not elsewhere class ified 311 and Generalized anxiety disorder 300.02 [place] [address] [address] Nov, Arthritis of both knees 716.[address] [address] Nov, PAF (paroxysmal atrial fibrillation) 427 .31 ; CAD (coronary artery disease) 414.00 ; Chest pain 786.50 and Chronic kidney disease (CKD) stage G4/A1, severely decreased glomerular filtration rate (GFR) between 15-29 mL/min/1.73 square meter and albuminuria creatinine ratio less than 30 mg/g 585.[address] [address] Oct, Coronary atherosclerosis of unspecified type of vessel, la posta or graft 414.00 ; Chronic kidney disease, Stage IV (severe) 585.4 ; Hypertension 401.9 and Edema 782.[address] [address] Oct, Depressive disorder, not elsewhere class ified 311 and Generalized anxiety disorder 300.02 [place] [address] [address] Oct, Depressive disorder, not elsewhere class ified 311 and Generalized anxiety disorder 300.02 [place] [address] [address] Oct, [place] [address] [address] Oct, [place] [address] [address] Sep, [facility] [address] [address] Sep, Chronic kidney disease, Stage IV (severe ) 585.4 [place] [address] [address] Sep, [facility] [address] [address] Sep, Coronary atherosclerosis of unspecified type of vessel, la posta or graft 414.00 ; Hypertension 401.9 ; Edema 782.3 and Hypothyroidism 244.9 [place] [address] [address] Sep, Coronary atherosclerosis of unspecified type of vessel, la posta or graft 414.00 ; Hypertension 401.9 ; Fibromyalgia 729.1 ; Edema 782.3 ; Hypothyroidism 244.9 and Anemia 285.[address] [address] Sep, Anxiety disorder, unspecified 300.00 and Depressive disorder, not elsewhere classified [address] [address] Sep, [facility] [address] [place] [address] August, Generalized anxiety disorder 300.[address] [address] August, Closed fracture of lateral malleolus 824 .2 [facility] [address] [place] [address] Jul, [facility] [address] [address] Jul, [address] [address] Jun, [facility] [address] [place] [address] Jun, [facility] [address] [address] Jun, [facility] [place] [facility] [address] [facility] [id number] [facility] [place] [address] Jun, [facility] [place] [facility] [address] [facility] [id number] [facility] [place] [address] Jun, [facility] [place] [facility] [address] [id number] [place] [address] Jun, [facility] [place] [facility] [address] [id number] [facility] [place] [address] May, 2014 [facility] [place] [facility] [address] [facility] [id number] [facility] [place] [address] May, 2014 [facility] [place] [facility] [address] [id number] [place] [address] May, 2014 [facility] [place] [facility] [address] [id number] [place] [address] May, 2014 [facility] [place] [facility] [address] [id number] [place] [address] May, 2014 [facility] [place] [facility] [address] [id number] [place] [address] May, 2014 [facility] [place] [facility] [address] [id number] [place] [address] May, 2014 [facility] [place] [facility] [address] [id number] [place] [address] May, 2014 [facility] [place] [facility] [address] [id number] [place] [address] 10 May, 2014 [facility] [place] [facility] [address] [id number] [place] [address] May, [facility] [place] [facility] [address] [id number] [place] [address] Apr, [facility] [place] [facility] [address] [id number] [place] [address] Apr, [facility] [place] [facility] [address] [id number] [place] [address] Mar, [facility] [place] [facility] [address] [id number] [place] [address] Mar, [facility] [place] [facility] [address] [id number] [place] [address] Mar, [facility] [place] [facility] [address] [id number] [place] [address] Mar, [facility] [place] [facility] [address] [id number] [place] [address] Mar, [facility] [place] [facility] [address] [id number] [place] [address] Mar, [facility] [place] [facility] [address] [id number] [place] [address] Mar, [facility] [place] [facility] [address] [id number] [place] [address] Feb, [facility] [place] [facility] [address] [id number] [place] [address] Feb, [facility] [place] [facility] [address] [id number] [place] [address] Feb, [facility] [place] [facility] [address] [id number] [place] [address] Jan, [facility] [place] [facility] [address] [id number] [place] [address] Jan, [facility] [place] [facility] [address] [id number] [place] [address] Jan, [facility] [place] [facility] [address] [id number] [place] [address] Jan, [facility] [place] [facility] [address] [id number] [place] [address] Jan, [facility] [place] [facility] [address] [id number] [place] [address] Jan, [facility] [place] [facility] [address] [id number] [place] [address] Jan, [facility] [place] [facility] [address] [id number] [place] [address] Jan, [facility] [place] [facility] [address] [facility] [id number] [facility] [place] [address] Jan, [facility] [place] [facility] [address] [facility] [id number] [facility] [place] [address] Jan, [facility] [place] [facility] [address] [facility] [id number] [facility] [place] [address] Nov, [facility] [place] [facility] [address] [facility] [id number] [facility] [place] [address] Nov, [facility] [place] [facility] [address] [facility] [id number] [facility] [place] [address] Nov, [facility] [place] [facility] [address] [facility] [id number] [place] [address] Oct, [facility] [place] [facility] [address] [id number] [place] [address] Oct, [facility] [place] [facility] [address] [id number] [facility] [place] [address] Oct, [facility] [place] [facility] [address] [facility] [id number] [place] [address] Oct, [facility] [place] [facility] [address] [id number] [facility] [place] [address] Oct, [facility] [place] [facility] [address] [facility] [id number] [place] [address] Oct, [facility] [place] [facility] [address] [id number] [place] [address] Oct, [facility] [place] [facility] [address] [facility] [id number] [place] [address] Oct, [facility] [place] [facility] [address] [facility] [id number] [place] [address] Oct, [facility] [place] [facility] [address] [facility] [id number] [place] [address] Sep, [facility] [place] [facility] [address] [id number] [place] [address] Sep, [facility] [place] [facility] [address] [id number] [place] [address] Sep, [facility] [place] [facility] [address] [id number] [place] [address] Sep, [facility] [place] [facility] [address] [id number] [place] [address] Sep, [facility] [place] [facility] [address] [id number] [place] [address] Sep, [facility] [place] [facility] [address] [id number] [place] [address] Sep, [facility] [place] [facility] [address] [id number] [place] [address] Sep, [facility] [place] [facility] [address] [id number] [place] [address] Sep, [facility] [place] [facility] [address] [id number] [place] [address] August, [facility] [place] [facility] [address] [id number] [place] [address] August, [facility] [place] [facility] [address] [id number] [place] [address] August, [facility] [place] [facility] [address] [id number] [place] [address] August, [facility] [place] [facility] [address] [id number] [place] [address] August, [facility] [place] [facility] [address] [id number] [place] [address] August, [facility] [place] [facility] [address] [id number] [place] [address] Jul, [facility] [place] [facility] [address] [id number] [place] [address] Jul, [facility] [place] [facility] [address] [id number] [place] [address] Jul, [facility] [address] [id number] [place] [address] Jul, [facility] [address] [id number] [place] [address] Jul, [facility] [address] [id number] [place] [address] Jul, [facility] [address] [id number] [place] [address] Jun, [facility] [address] [id number] [place] [address] Jun, [facility] [address] [id number] [place] [address] May, [facility] [address] [id number] [place] [address] May, [facility] [address] [id number] [place] [address] May, [facility] [id number] [place] [address] May, [facility] [address] [id number] [place] [address] Apr, [facility] [address] [id number] [place] [address] Apr, [facility] [address] [id number] [place] [address] Mar, [facility] [address] [id number] [place] [address] Mar, [facility] [address] [id number] [place] [address] Mar, [facility] [address] [id number] [place] [address] Mar, [facility] [address] [id number] [place] [address] Mar, [facility] [address] [id number] [place] [address] Mar, [facility] [address] [id number] [place] [address] Feb, [facility] [address] [facility] [id number] [place] [address] Feb, [facility] [address] [id number] [place] [address] Feb, [facility] [address] [id number] [place] [address] Feb, [facility] [address] [id number] [place] [address] Feb, [facility] [address] [id number] [place] [address] Feb, [facility] [address] [id number] [place] [address] Jan, [facility] [address] [id number] [place] [address] Jan, [facility] [address] [id number] [place] [address] Jan, [facility] [address] [id number] [place] [address] Jan, [facility] [address] [facility] [id number] [place] [address] 08 Jan, 2013 [facility] [place] [facility] [address] [id number] [place] [address] Jan, [facility] [place] [facility] [address] [id number] [place] [address] Dec, [facility] [place] [facility] [address] [id number] [place] [address] 09 Dec, 2012 [facility] [place] [facility] [address] [id number] [place] [address] Nov, [facility] [place] [facility] [address] [id number] [place] [address] Nov, [facility] [place] [facility] [address] [id number] [place] [address] Oct, [facility] [place] [facility] [address] [facility] [id number] [facility] [place] [address] Oct, [facility] [place] [facility] [address] [id number] [facility] [place] [address] Oct, [facility] [place] [facility] [address] [facility] [id number] [place] [address] Oct, [facility] [place] [facility] [address] [id number] [place] [address] Oct, [facility] [place] [facility] [address] [id number] [facility] [place] [address] Oct, [facility] [place] [facility] [address] [id number] [facility] [place] [address] Sep, [facility] [place] [facility] [address] [id number] [place] [address] Sep, [facility] [place] [facility] [address] [id number] [place] [address] Sep, [facility] [place] [facility] [address] [id number] [place] [address] Sep, [facility] [place] [facility] [address] [id number] [place] [address] August, [facility] [place] [facility] [address] [id number] [place] [address] August, [facility] [place] [facility] [address] [id number] [place] [address] August, [facility] [place] [facility] [address] [id number] [place] [address] August, [facility] [place] [facility] [address] [id number] [place] [address] August, [facility] [place] [facility] [address] [id number] [place] [address] Jul, [facility] [place] [facility] [address] [id number] [place] [address] Jul, [facility] [place] [facility] [address] [id number] [place] [address] 15 Jul, 2012 [facility] [address] [id number] [place] [address] Jul, [facility] [place] [facility] [address] [id number] [place] [address] Jul, [facility] [place] [facility] [address] [id number] [place] [address] Jul, [facility] [place] [facility] [address] [id number] [place] [address] Jul, [facility] [place] [facility] [address] [id number] [place] [address] Jul, [facility] [place] [facility] [address] [id number] [place] [address] Jul, [facility] [place] [facility] [address] [id number] [place] [address] Jul, [facility] [address] [id number] Jun, [facility] [place] [facility] [address] [id number] [place] [address] Jun, [facility] [place] [facility] [address] [id number] [place] [address] Jun, [facility] [place] [facility] [address] [id number] [place] [address] Jun, [facility] [place] [facility] [address] [id number] [place] [address] Jun, [facility] [place] [facility] [address] [id number] [place] [address] May, [facility] [place] [facility] [address] [id number] [place] [address] May, [facility] [place] [facility] [address] [id number] [place] [address] May, [facility] [place] [facility] [address] [id number] [place] [address] Apr, [facility] [place] [facility] [address] [id number] [place] [address] Apr, [facility] [place] [facility] [address] [id number] [place] [address] Apr, [facility] [place] [facility] [address] [id number] [place] [address] Apr, [facility] [place] [facility] [address] [id number] [place] [address] Apr, [facility] [place] [facility] [address] [id number] [place] [address] Apr, [facility] [place] [facility] [address] [id number] [place] [address] Mar, [facility] [place] [facility] [address] [id number] [place] [address] Mar, [facility] [place] [facility] [address] [id number] [place] [address] Mar, [facility] [place] [facility] [address] [id number] [place] [address] Mar, [facility] [place] [facility] [address] [id number] [place] [address] Feb, [facility] [place] [facility] [address] [id number] [place] [address] Feb, [facility] [place] [facility] [address] [id number] [place] [address] Feb, [facility] [place] [facility] [address] [id number] [place] [address] Feb, [facility] [place] [facility] [address] [id number] [place] [address] Feb, [facility] [place] [facility] [address] [id number] [place] [address] Feb, [facility] [place] [facility] [address] [id number] [place] [address] Feb, [facility] [place] [facility] [address] [id number] [place] [address] Feb, [facility] [place] [facility] [address] [id number] [place] [address] Feb, 2011 [facility] [place] [facility] [address] [id number] [place] [address] Feb, [facility] [place] [facility] [address] [id number] [place] [address] Feb, [facility] [place] [facility] [address] [id number] [place] [address] Feb, [facility] [place] [facility] [address] [id number] [place] [address] Feb, [facility] [place] [facility] [address] [id number] [place] [address] Feb, [facility] [place] [facility] [address] [id number] [place] [address] Feb, [facility] [place] [facility] [address] [id number] [place] [address] Feb, [facility] [place] [facility] [address] [id number] [place] [address] Jan, [facility] [place] [facility] [address] [id number] [place] [address] Jan, [facility] [place] [facility] [address] [id number] [place] [address] Jan, [facility] [place] [facility] [address] [id number] [place] [address] Jan, [facility] [place] [facility] [address] [id number] [place] [address] 30 Jan, 2012 [facility] [place] [facility] [address] [id number] [place] [address] Jan, [facility] [place] [facility] [address] [id number] [place] [address] Jan, [facility] [place] [facility] [address] [id number] [place] [address] Jan, [facility] [place] [facility] [address] [id number] [place] [address] Jan, [facility] [place] [facility] [address] [id number] [place] [address] 15 Jan, 2011 [facility] [place] [facility] [address] [id number] [place] [address] 15 Jan, 2011 [facility] [place] [facility] [address] [id number] [place] [address] Jan, [facility] [place] [facility] [address] [id number] [place] [address] 26 Sep, 2011 [facility] [place] [facility] [address] [id number] [place] [address] 26 Sep, 2011 [facility] [place] [facility] [address] [id number] [place] [address] 24 Sep, 2011 [facility] [place] [facility] [address] [id number] [place] [address] 23 Sep, 2011 [facility] [place] [facility] [address] [id number] [place] [address] 22 Sep, 2011 [facility] [place] [facility] [address] [id number] [place] [address] 21 Sep, 2011 [facility] [place] [facility] [address] [id number] [place] [address] 20 Sep, 2011 [facility] [place] [facility] [address] [id number] [place] [address] 20 Sep, 2011 [facility] [place] [facility] [address] [id number] [place] [address] 07 Sep, 2011 [facility] [place] [facility] [address] [id number] [place] [address] 06 Sep, 2011 [facility] [place] [facility] [address] [id number] [place] [address] 06 Sep, 2011 [facility] [place] [facility] [address] [id number] [place] [address] 05 Sep, 2011 [facility] [place] [facility] [address] [id number] [place] [address] 23 Nov, 2011 [facility] [place] [facility] [address] [id number] [place] [address] Nov, [facility] [place] [facility] [address] [id number] [facility] [place] [address] Nov, [facility] [place] [facility] [address] [facility] [id number] [facility] [place] [address] Nov, [facility] [place] [facility] [address] [id number] [facility] [place] [address] Nov, [facility] [place] [facility] [address] [id number] [place] [address] Nov, [facility] [place] [facility] [address] [facility] [id number] [place] [address] Nov, [facility] [place] [facility] [address] [id number] [facility] [place] [address] Nov, [facility] [place] [facility] [address] [id number] [facility] [place] [address] Oct, [facility] [place] [facility] [address] [id number] [facility] [place] [address] Oct, [facility] [place] [facility] [address] [id number] [facility] [place] [address] Oct, [facility] [place] [facility] [address] [id number] [facility] [place] [address] Oct, [facility] [place] [facility] [address] [id number] [place] [address] Oct, [facility] [place] [facility] [address] [id number] [place] [address] Oct, [facility] [place] [facility] [address] [id number] [facility] [place] [address] Oct, [facility] [place] [facility] [address] [id number] [place] [address] Sep, [facility] [place] [facility] [address] [id number] [facility] [place] [address] Sep, [facility] [place] [facility] [address] [id number] [facility] [place] [address] August, [facility] [place] [facility] [address] [id number] [place] [address] August, [facility] [place] [facility] [address] [id number] [place] [address] August, [facility] [place] [facility] [address] [id number] [place] [address] August, [facility] [place] [facility] [address] [id number] [place] [address] Jul, [facility] [place] [facility] [address] [id number] [place] [address] Jul, [facility] [place] [facility] [address] [id number] [place] [address] Jul, [facility] [place] [facility] [address] [id number] [place] [address] Jul, [facility] [place] [facility] [address] [id number] [place] [address] Jul, [facility] [place] [facility] [address] [id number] [place] [address] Jul, [facility] [place] [facility] [address] [id number] [place] [address] Jul, [facility] [place] [facility] [address] [id number] [place] [address] Jul, [facility] [place] [facility] [address] [id number] [place] [address] Jul, [facility] [place] [facility] [address] [id number] [place] [address] Jun, [facility] [place] [facility] [address] [id number] [place] [address] 19 Jun, 2011 [facility] [place] [facility] [address] [id number] [place] [address] 15 Jun, 2011 [facility] [place] [facility] [address] [id number] [place] [address] 14 Jun, 2011 [facility] [place] [facility] [address] [id number] [place] [address] Jun, [facility] [address] [id number] [place] [address] Jun, [facility] [place] [facility] [address] [id number] [place] [address] Jun, [facility] [place] [facility] [address] [id number] [place] [address] May, [facility] [place] [facility] [address] [id number] [place] [address] May, [facility] [place] [facility] [address] [id number] [place] [address] May, [facility] [place] [facility] [address] [id number] [place] [address] May, [facility] [place] [facility] [address] [id number] [place] [address] May, [facility] [place] [facility] [address] [id number] [place] [address] Apr, [facility] [place] [facility] [address] [id number] [place] [address] Apr, [facility] [place] [facility] [address] [id number] [place] [address] Apr, [facility] [place] [facility] [address] [id number] [place] [address] Apr, [facility] [place] [facility] [address] [id number] [place] [address] Apr, [facility] [place] [facility] [address] [id number] [place] [address] Mar, [facility] [place] [facility] [address] [id number] [place] [address] Mar, [facility] [place] [facility] [address] [id number] [place] [address] Mar, [facility] [place] [facility] [address] [id number] [place] [address] Mar, [facility] [place] [facility] [address] [id number] [place] [address] 08 Mar, 2011 [facility] [place] [facility] [address] [id number] [place] [address] Mar, [facility] [place] [facility] [address] [id number] [place] [address] Mar, [facility] [place] [facility] [address] [id number] [place] [address] Feb, [facility] [place] [facility] [address] [id number] [place] [address] Feb, [facility] [place] [facility] [address] [id number] [place] [address] Feb, [facility] [place] [facility] [address] [id number] [place] [address] Feb, [facility] [place] [facility] [address] [id number] [place] [address] Jan, [facility] [place] [facility] [address] [id number] [place] [address] Jan, [facility] [place] [facility] [address] [id number] [place] [address] Jan, [facility] [place] [facility] [address] [id number] [place] [address] Jan, [facility] [place] [facility] [address] [id number] [place] [address] Nov, [facility] [place] [facility] [address] [id number] [place] [address] Mar, [facility] [place] [facility] [address] [id number] [place] [address] Mar, [facility] [place] [facility] [address] [id number] [place] [address] Mar, [facility] [place] [facility] [address] [id number] [place] [address] Mar, [facility] [place] [facility] [address] [id number] [place] [address] Mar, [facility] [address] [id number] [place] [address] Mar, [facility] [id number] [place] [address] Feb, [facility] [address] [id number] [place] [address] Feb, [facility] [id number] [place] [address] Jan, [facility] [id number] [place] [address] Jan, [facility] [address] [address] Jan, IMMUNIZATIONS No Known Immunizations SOCIAL HISTORY Never Assessed REASON FOR VISIT PLAN OF CARE VITAL SIGNS Weight 276.5 lbs 2013-10-29 Temperature 99.7 degrees Fahrenheit 2013-10-29 Heart Rate 110 bpm 2013-10-29 Respiratory Rate 18 2013-10-29 Blood pressure systolic 130 mmHg 2013-10-29 Blood pressure diastolic 82 mmHg 2013-10-29 MEDICATIONS Unknown Medications RESULTS No Results PROCEDURES Procedure Date Ordered Result Body Site STREP A ASSAY W/OPTIC October 29, 2013 MEASURE BLOOD OXYGEN LEVEL October 29, 2013 NEB/MDI RX INITIAL October 29, 2013 INSTRUCTIONS MEDICATIONS ADMINISTERED No Known Medications [...] History CPAP Noncompliance_ Dr. Madden advises a [employer]. Medical History Bacterial meningitis 12/2016 Medical [...] 09-2015 & 2007 Surgical History Bladder surgery [facility] 03/2016 Surgical History Neurotransmitter placed 10/2017 Surgical History retninal repair 12/31/2017 Surgical History cataract surgery 2018 Surgical History cataract surgery 2018 Surgical History SCS trial x7 days 2018 Surgical History SCS implant removed. 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
--- OUTSIDE RECORDS SUMMARY | 2019-08-01 10:05 | XMS REPORT ---
Author Author Lola CORLEY Organization [facility] Address [address] [place] [address] Care Team Providers Care Colon Therapist Name Role Phone BARNEY MAKSIM Unavailable PROBLEMS Type Condition ICD9-CM Code [id number] Code Onset Dates Condition S tatus SNOMED Code Problem Generalized anxiety disorder F41.1 A ctive 75341871 Problem Low back pain M54.5 Active 332220 009 Problem Insomnia G47.00 Active 660709915 Problem Hypothyroid E03.9 Active 97168576 Problem Palpitations R00.2 Active 9683688 2 Problem Asthma J45.909 Active 773454129 Problem Mixed stress and urge urinary incontinence N39.46 Active 458067055 Problem Fibromyalgia M79.7 Active 7117505 05 Problem Stage 3 chronic kidney disease N18.3 Active 651185911 Problem Body mass index (BMI) of 40.0-44.9 in adult Z68.41 Active 097379956 Problem Seasonal allergic rhinitis due to pollen J30.1 Active 44192133 Problem 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 Active 8996513493164 Problem Primary osteoarthritis of left knee M17.12 Active 756489034 Problem Hypercholesterolemia E78.00 Active 37084225 Problem Essential (primary) hypertension I10 Active 49795464 Problem Restless leg syndrome G25.81 Active 08325866 Problem Chronic pain syndrome G89.4 Active 172334111 Problem Perimenopausal vasomotor symptoms N95.1 Active 491460610 Problem Major depressive disorder, recurrent, moderate F33 .1 Active 774175128 ALLERGIES No Information ENCOUNTERS Encounter Location Date Diagnosis [facility] [address] [id number] [place] [address] Apr, [facility] [address] [id number] [place] [address] Apr, [facility] [address] [address] Apr, Chronic pain syndrome G89.4 [place] [address] [address] Apr, Acute pain of right knee M25.561 [facility] [address] [address] Apr, [place] [address] [address] Mar, Major depressive disorder, recurrent, mo derate F33.1 ; Generalized anxiety disorder F41.1 and Dysthymic disorder F34.1 [facility] [address] [facility] [id number] [address] [place] [address] Mar, Fluid collection of middle e ar H65.90 and Dizziness R42 [place] [address] [address] Mar, [place] [address] [address] Mar, [place] [address] [address] Mar, Essential (primary) hypertension I10 ; S tage 3 chronic kidney disease N18.3 ; Hypercholesterolemia E78.00 ; Asthma J45.909 ; Recurrent UTI N39.0 ; Status post shoulder surgery Z98.890 and Encounter for immunization Z23 [place] [address] [address] Mar, Chronic pain syndrome G89.4 [place] [address] [address] Feb, [place] [address] [address] Feb, [place] [address] [address] Feb, Oral thrush B37.0 and Sore throat J02.9 [place] [address] [address] Feb, Chronic pain syndrome G89.4 [facility] [address] [address] Jan, [facility] [address] [address] Jan, Chronic pain syndrome G89.4 [facility] [address] [address] Jan, Hypercholesterolemia E78.00 [place] [address] [address] Jan, [place] [address] [address] Dec, Chronic kidney disease, stage 4 (severe) N18.4 [place] [address] [address] Dec, Major depressive disorder, recurrent, mo derate F33.1 ; Generalized anxiety disorder F41.1 and Dysthymic disorder F34.1 [place] [address] [address] Dec, Generalized anxiety disorder F41.1 and M shiraor depressive disorder, recurrent episode with anxious distress F33.9 [place] [address] [address] Dec, [place] [address] [address] Dec, [place] [address] [address] Dec, Encounter for immunization Z23 [place] [address] [address] Dec, Diarrhea, unspecified type R19.7 and Hem orrhoids, unspecified hemorrhoid type K64.9 [place] [address] [address] Dec, Encounter for Medicare annual wellness e xam Z00.00 ; Chronic kidney disease, stage 4 (severe) N18.4 ; Encounter for immunization Z23 ; Major depressive disorder, recurrent, moderate F33.1 ; Atherosclerosis of elim ira coronary artery of elim ira heart with angina pectoris I25.119 ; Asthma J45.909 ; Hypothyroid E03.9 and Fibromyalgia M79.7 [place] [address] [address] Dec, Chronic pain syndrome G89.4 [place] [address] [address] Nov, Major depressive disorder, recurrent, mo derate F33.1 ; Generalized anxiety disorder F41.1 and Dysthymic disorder F34.[address] [address] Nov, [place] [address] [address] Nov, Chronic pain syndrome G89.[address] [address] Nov, Restless leg syndrome G25.[address] [address] Nov, Pain in right shoulder M25.511 ; Restles s leg syndrome G25.81 ; Other chronic pain G89.29 ; Screening for breast cancer Z12.39 ; Insomnia G47.00 and Morbid obesity E66.[address] [address] Nov, [address] [address] Oct, Major depressive disorder, recurrent, mo derate F33.1 ; Generalized anxiety disorder F41.1 and Dysthymic disorder F34.1 [place] [address] [address] Oct, [address] [address] Oct, Cellulitis of left lower extremity L03.1 16 and Morbid obesity E66.01 [facility] [address] [facility] [id number] [address] [address] Oct, [facility] [address] [place] [id number] [place] [address] Oct, [facility] [address] [place] [address] [id number] [place] [address] Oct, Generalized anxiety disorder F41.1 and M zion depressive disorder, recurrent episode with anxious distress F33.9 [facility] [address] [facility] [id number] [place] [address] Oct, [facility] [address] [address] Oct, Chronic pain syndrome G89.4 [facility] [address] [address] Oct, Chronic pain syndrome G89.4 [facility] [address] [place] [id number] [place] [address] Oct, UTI symptoms R39.9 ; Acute c ystitis without hematuria N30.00 and Morbid obesity E66.01 [facility] [address] [id number] [place] [address] Oct, [facility] [address] [place] [id number] [place] [address] Oct, Chronic pain syndrome G89.4 [facility] [address] [place] [id number] [place] [address] Sep, [facility] [address] [address] Sep, Generalized anxiety disorder F41.1 and M zion depressive disorder, recurrent episode with anxious distress F33.9 [facility] [address] [place] [id number] [place] [address] Sep, Chronic kidney disease, stage 4 (severe) N18.4 [facility] [address] [place] [id number] [place] [address] 2018 Fibromyalgia M79.7 and Chronic pain synd lisseth G89.4 [place] [address] [place] [id number] [place] [address] Sep, [facility] [address] [place] [address] Sep, Chronic pain syndrome G89.4 [place] [address] [address] Sep, [place] [address] [address] Sep, Chronic pain syndrome G89.4 ; Fibromyalg ia M79.7 and Morbid obesity E66.01 [place] [address] [address] August, Generalized anxiety disorder F41.1 and M ajor depressive disorder, recurrent episode with anxious distress F33.9 [place] [address] [place] [address] [id number] [place] [address] August, Fibromyalgia M79.7 [place] [address] [address] August, Restless leg syndrome G25.81 ; Vitamin D deficiency E55.9 ; Urinary tract infection without hematuria, site unspecified N39.0 ; Pain in right shoulder M25.511 ; Other chronic pain G89.29 ; Biceps tendinitis on right M75.21 and Morbid obesity E66.01 [place] [address] [address] Jul, Urinary tract infection without hematuri a, site unspecified N39.0 and Morbid obesity E66.01 [place] [address] [address] Jul, [place] [address] [address] Jul, [place] [address] [address] Jul, Fibromyalgia M79.7 [facility] [address] [address] Jul, Acute pain of right shoulder M25.511 [facility] [address] [address] Jul, Acute pain of right shoulder M25.511 and Morbid obesity E66.01 [facility] [address] [address] Jun, [facility] [address] [address] Jun, Generalized anxiety disorder F41.1 and Tae donovan depressive disorder, recurrent episode with anxious distress F33.9 [place] [address] [place] [id number] [place] [address] Jun, [facility] [address] [address] Jun, Fibromyalgia M79.7 [facility] [address] [facility] [id number] [address] [place] [address] Jun, Acute pain of right shoulder M25.511 ; Acute pain of right hip M25.551 and Morbid obesity E66.01 [place] [address] [address] May, Burning with urination R30.0 ; Vaginal d ischarge N89.8 ; Chronic kidney disease, stage 4 (severe) N18.4 ; Body mass index (BMI) of 40.0-44.9 in adult Z68.41 and Morbid obesity E66.01 [facility] [address] [address] May, Fibromyalgia M79.7 [facility] [address] [address] 06 May, 2018 Generalized anxiety disorder F41.1 and Tae donovan depressive disorder, recurrent episode with anxious distress F33.9 [facility] [address] [place] [address] [id number] [place] [address] Apr, [facility] [address] [address] Apr, Fibromyalgia M79.7 [facility] [address] [facility] [id number] [place] [address] Mar, Acute UTI N39.0 and Dysuria R30.0 [facility] [address] [address] 10 Mar, 2018 Fibromyalgia M79.7 [facility] [address] [address] Feb, [facility] [address] [address] Feb, [facility] [address] [address] Feb, [facility] [address] [address] Feb, Fibromyalgia M79.7 [facility] [address] [address] 08 Feb, 2018 Complicated UTI (urinary tract infection ) N39.0 [facility] [address] [address] Feb, [facility] [address] [address] Jan, Generalized anxiety disorder F41.1 and M ajor depressive disorder, recurrent episode with anxious distress F33.9 [facility] [address] [facility] [id number] [address] [place] [address] Jan, Acute conjunctivitis of left eye, unspecified acute conjunctivitis type H10.32 [facility] [address] [address] Jan, [facility] [address] [address] Jan, Acute non-recurrent maxillary sinusitis J01.00 ; Dysuria R30.0 ; Perimenopausal vasomotor symptoms N95.1 and Fibromyalgia M79.7 [place] [address] [address] Dec, Vitamin D deficiency E55.9 [place] [address] [address] Dec, Vitamin D deficiency E55.9 [place] [address] [address] Dec, Vitamin D deficiency E55.9 [place] [address] [address] Dec, [place] [address] [address] Dec, Fibromyalgia M79.7 [place] [address] [address] Nov, [place] [address] [address] Nov, [place] [address] [address] Nov, [place] [address] [address] Nov, Fibromyalgia M79.7 ; Vision changes H53. 9 ; Chest wall pain R07.89 and Chronic pain syndrome G89.4 [place] [address] [address] Nov, [place] [address] [address] Nov, Rash of hands R21 [place] [address] [address] Nov, Generalized anxiety disorder F41.1 and M ajor depressive disorder, recurrent episode with anxious distress F33.9 [place] [address] [address] Nov, Fibromyalgia M79.7 [facility] [address] [place] [id number] [place] [address] Nov, Complicated UTI (urinary tract infection ) N39.0 [facility] [address] [address] Oct, [facility] [address] [address] Oct, Generalized anxiety disorder F41.1 and M ajor depressive disorder, recurrent episode with anxious distress F33.9 [facility] [address] [address] Oct, [place] [address] [address] Oct, Fibromyalgia M79.7 [facility] [address] [address] Sep, Restless leg syndrome G25.81 and Restles s leg G25.81 [facility] [address] [address] Sep, [facility] [address] [address] Sep, Seasonal allergic rhinitis due to pollen J30.1 ; Screening for breast cancer Z12.31 ; Chest pain at rest R07.9 ; Restless leg syndrome G25.81 ; Essential (primary) hypertension I10 and Depressed F32.9 [facility] [address] [address] August, Fibromyalgia M79.7 [facility] [address] [address] August, [facility] [address] [address] August, [facility] [address] [address] August, Abnormal chest CT R93.8 [facility] [address] [address] August, Generalized anxiety disorder F41.1 and Tae donovan depressive disorder, recurrent episode with anxious distress F33.9 [place] [address] [address] August, Abnormal chest CT R93.8 [place] [address] [address] Jul, [place] [address] [address] Jul, Chronic kidney disease, stage 4 (severe) N18.4 [place] [address] [address] Jul, [place] [address] [address] Jul, Restless leg G25.81 ; Mixed stress and u rge urinary incontinence N39.46 and Fibromyalgia M79.7 [place] [address] [address] Jul, Chronic kidney disease, stage 4 (severe) N18.4 [place] [address] [address] Jun, Orthostatic hypotension I95.1 ; Chronic kidney disease, stage 4 (severe) N18.4 ; Chest wall discomfort R07.89 and Body mass index (BMI) of 40.0- 44.9 in adult Z68.41 [place] [address] [address] Jun, [place] [address] [address] Jun, Orthostatic hypotension I95.[address] [address] Jun, [facility] [address] [facility] [id number] [address] [place] [address] Jun, Orthostatic hypotension I95. 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 [place] [address] [address] May, Chronic kidney disease, stage 4 (severe) N18.4 [place] [address] [address] May, Chronic kidney disease, stage 4 (severe) N18.4 [place] [address] [address] May, Ab[address] chest [address] R93.8 [place] [address] [address] May, [place] [address] [address] May, [place] [address] [address] May, Generalized anxiety disorder F41.1 and M zion depressive disorder, recurrent episode with anxious distress F33.9 [place] [address] [address] May, Mood disorder F39 [facility] [id number] [place] [address] Apr, [facility] [address] [address] Apr, Infected skin lesion L08.[address] rain of right shoulder region, initial encounter S46.911A [facility] [address] [address] Apr, Generalized anxiety disorder F41.1 and M ajor depressive disorder, recurrent episode with anxious distress F33.9 [facility] [address] [address] Apr, [facility] [address] [address] Apr, Recent urinary tract infection Z87.440 a nd Hypothyroid E03.9 [place] [address] [address] Apr, Generalized anxiety disorder F41.1 and M ajor depressive disorder, recurrent episode with anxious distress F33.9 [facility] [address] [address] Apr, Recent urinary tract infection Z87.440 [facility] [address] [address] Mar, [facility] [address] [facility] [id number] [place] [address] Mar, Dysuria R30.0 ; Acute cystit is without hematuria N30.00 and BMI 40.0-44.9, adult Z68.41 [facility] [address] [address] Mar, [facility] [address] [address] Mar, [facility] [address] [address] Mar, Generalized anxiety disorder F41.1 and Tae donovan depressive disorder, recurrent episode with anxious distress F33.9 [facility] [address] [address] Feb, Conjunctivitis, bacterial H10.9 [facility] [address] [address] Feb, [facility] [address] [place] [id number] [address] [place] [address] Feb, Conjunctivitis, bacterial H1 0.9 [facility] [address] [address] Feb, [facility] [address] [place] [address] Feb, Dysuria R30.0 ; Acute cystit is N30.00 and BMI 40.0-44.9, adult Z68.41 [place] [address] [address] Feb, [place] [address] [address] Feb, Generalized anxiety disorder F41.1 and Tae donovan depressive disorder, recurrent episode with anxious distress F33.9 [place] [address] [address] Feb, Mood disorder F39 and BMI 40.0-44.9, feli lt Z68.41 [place] [address] [address] Jan, [place] [address] [address] Jan, [place] [address] [address] Jan, Hypothyroid E03.9 [place] [address] [address] Jan, [place] [address] [address] Jan, Chronic kidney disease, unspecified N18. 9 ; Hypokalemia E87.6 ; Essential (primary) hypertension I10 ; Fibromyalgia M79.7 ; Coronary artery disease involving elim ira coronary artery of elim ira heart, angina presence unspecified I25.10 ; Hypothyroid E03.9 and Encounter for immunization Z23 [place] [address] [address] Jan, Hypothyroid E03.9 [place] [address] [address] Jan, [place] [address] [address] 28 Dec, 2016 Vitamin D deficiency E55.9 [place] [address] [address] 28 Dec, 2016 Primary osteoarthritis of left knee M17. 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 [place] [address] [address] 19 Dec, 2016 Fibromyalgia M79.7 [place] [address] [address] 18 Dec, 2016 Mood disorder F39 [place] [address] [address] 13 Dec, 2016 [place] [address] [address] 13 Dec, 2016 Generalized anxiety disorder F41.1 and M ajor depressive disorder, recurrent episode with anxious distress F33.9 [place] [address] [address] 11 Dec, 2016 [place] [address] [address] 08 Dec, 2016 Streptococcal meningitis G00.2 [place] [address] [address] 07 Dec, 2016 Streptococcal meningitis G00.2 [place] [address] [place] [address] 07 Dec, 2016 [facility] [address] [address] Dec, Streptococcal meningitis G00.2 [facility] [address] [address] Dec, [facility] [address] [address] Dec, Major depressive disorder, recurrent epi sode with anxious distress F33.9 [facility] [address] [address] Nov, Fever, unspecified fever cause R50.9 [place] [address] [address] Nov, [place] [address] [address] Nov, Hypothyroid E03.9 [place] [address] [address] Nov, Generalized anxiety disorder F41.1 and M ajor depressive disorder, recurrent episode with anxious distress F33.9 [place] [address] [address] Nov, [facility] [id number] [place] [id number] Oct, Dental examination Z01.20 [place] [address] [address] Oct, Generalized anxiety disorder F41.1 and M ajor depressive disorder, recurrent episode with anxious distress F33.9 [place] [address] [address] Oct, Chronic kidney disease, stage 4 (severe) N18.4 [facility] [address] [address] Oct, [facility] [address] [address] Oct, Fibromyalgia M79.7 [place] [address] [address] Oct, [place] [address] [address] Oct, Generalized anxiety disorder F41.1 ; Fady or depressive disorder, recurrent episode with anxious distress F33.9 and Bipolar disorder, current episode manic without psychotic features F31.10 [place] [address] [address] Sep, [place] [address] [address] Sep, [place] [address] [address] Sep, Vitamin D deficiency E55.[address] [address] Sep, Vitamin D deficiency E55.9 [place] [address] [address] Sep, [address] [address] Sep, Chronic kidney disease, stage 4 (severe) N18.4 ; Hypothyroid E03.9 ; Restless leg G25.81 ; Fibromyalgia M79.7 ; Essential (primary) hypertension I10 ; Vitamin D deficiency E55.9 ; Dyspepsia R10.13 ; Anemia in chronic kidney disease D63.1 ; Chronic kidney disease, unspecified N18.9 ; Coronary artery disease involving elim ira coronary artery of elim ira heart, angina presence unspecified I25.10 ; Screening breast examination Z12.39 and Low back pain M54.[address] [address] August, Generalized anxiety disorder F41.1 and M ajor depressive disorder, recurrent episode with anxious distress F33.[address] [address] August, Generalized anxiety disorder F41.1 and Tae donovan depressive disorder, recurrent episode with anxious distress F33.9 [place] [address] [address] August, Fibromyalgia M79.7 [place] [address] [address] Jul, Generalized anxiety disorder F41.1 and Tae donovan depressive disorder, recurrent episode with anxious distress F33.9 [place] [address] [address] Jul, Fibromyalgia M79.7 [place] [address] [address] Jul, Generalized anxiety disorder F41.1 [place] [address] [address] May, [place] [address] [address] May, Hypothyroid E03.9 [place] [address] [address] May, Chronic kidney disease, stage 4 (severe) [...] elim ira heart, angina presence unspecified I25.10 [place] [address] [address] May, Vitamin D deficiency, unspecified E55.9 [place] [address] [address] May, Generalized anxiety disorder F41.1 and Tae donovan depressive disorder, recurrent episode with anxious distress F33.9 [place] [address] [address] Apr, Pain in right knee M25.561 and Pain in l eft knee M25.562 [place] [address] [address] Apr, [place] [address] [address] Apr, [place] [address] [address] Apr, [place] [address] [address] Mar, Generalized anxiety disorder F41.1 and Tae donovan depressive disorder, recurrent episode with anxious distress F33.9 [place] [address] [address] Mar, Generalized anxiety disorder F41.1 and Tae donovan depressive disorder, recurrent episode with anxious distress F33.9 [place] [address] [address] Mar, [place] [address] [address] Mar, [place] [address] [address] Mar, [place] [address] [address] Mar, Asthma J45.909 and Fibromyalgia M79.7 [place] [address] [address] Mar, Chronic kidney disease, stage 4 (severe) N18.4 ; Vitamin D deficiency E55.9 and Essential (primary) hypertension I10 [place] [address] [address] Feb, [place] [address] [address] Feb, Dysuria R30.0 ; Mixed stress and urge ur inary incontinence N39.46 ; Fibromyalgia M79.7 and Chronic kidney disease, stage IV (severe) N18.4 [place] [address] [address] Feb, Chronic kidney disease, stage 4 (severe) N18.4 [facility] [address] [address] Feb, Chronic kidney disease, stage 4 (severe) N18.4 [facility] [address] [address] Feb, [place] [address] [address] Feb, Vitamin D deficiency, unspecified E55.9 [place] [address] [address] Jan, [place] [address] [address] Jan, [facility] [address] [address] 30 Dec, 2015 [place] [address] [address] Dec, Chronic kidney disease, stage 4 (severe) N18.4 [place] [address] [address] Dec, Dysthymic disorder F34.1 and Generalized anxiety disorder F41.1 [place] [address] [address] 27 Dec, 2015 [place] [address] [address] Dec, [place] [address] [address] 08 Dec, 2015 Dysthymic disorder F34.1 and Generalized anxiety disorder F41.1 [place] [address] [address] Dec, Dysuria R30.0 ; Chronic kidney disease, stage 4 (severe) N18.4 ; Hypertension I10 ; Dyspepsia R10.13 ; Yeast dermatitis B37.2 ; Palpitations R00.2 ; Hypothyroid E03.9 ; Functional diarrhea K59.1 and Other seasonal allergic rhinitis J30.2 [facility] [address] [place] [address] Dec, [facility] [address] [address] Nov, Dysuria R30.0 and Stress inc ontinence N39.3 [place] [address] [address] Nov, [place] [address] [address] Nov, [place] [address] [address] Nov, Osteoarthritis of knees, bilateral M17.0 [place] [address] [address] Nov, Dysthymic disorder F34.1 and Generalized anxiety disorder F41.1 [place] [address] [address] Nov, [place] [address] [address] Nov, [place] [address] [address] Nov, Urgency of urination R39.15 [place] [address] [address] Nov, [place] [address] [address] Nov, Chronic kidney disease, stage 4 (severe) N18.4 [place] [address] [address] Oct, Hypertension I10 ; Coronary artery disea se involving elim ira coronary artery of elim ira heart, angina presence unspecified I25.10 ; Palpitations R00.2 ; Hypothyroid E03.9 ; Right foot pain M79.671 ; Functional diarrhea K59.1 and Other seasonal allergic rhinitis J30.2 [place] [address] [address] Oct, Dysthymic disorder F34.1 and Generalized anxiety disorder F41.1 [place] [address] [address] Sep, [place] [address] [address] Sep, [place] [address] [address] Sep, [place] [address] [address] Sep, [place] [address] [address] Sep, [place] [address] [address] Sep, Dysthymic disorder F34.1 and Generalized anxiety disorder F41.1 [place] [address] [address] 16 Sep, 2015 Asthma with acute exacerbation in adult J45.901 ; Dysuria R30.0 ; Chronic kidney disease, stage 4 (severe) N18.4 and History of anemia Z86.2 [place] [address] [address] 2015 Generalized anxiety disorder F41.1 and D ysthymic disorder F34.1 [place] [address] [address] August, Screening breast examination Z12.39 and Acute recurrent maxillary sinusitis J01.01 [place] [address] [address] August, Osteoarthritis of knees, bilateral M17.0 [place] [address] [address] August, Chronic kidney disease, stage 4 (severe) N18.4 ; Acute non-recurrent maxillary sinusitis J01.00 ; Urinary problem R39.89 ; Bowel habit changes R19.4 ; Functional diarrhea K59.1 and History of colon polyps Z86.010 [place] [address] [address] Jul, Dysthymic disorder F34.1 and Generalized anxiety disorder F41.1 [place] [address] [address] Jul, [place] [address] [address] Jul, Dysthymic disorder F34.1 ; Generalized a nxiety disorder F41.1 and intermediate use of drug Z79.899 [place] [address] [address] Jul, [place] [address] [address] Jun, [place] [address] [address] Jun, [place] [address] [address] May, [place] [address] [address] May, Dysthymic disorder F34.1 and Generalized anxiety disorder F41.1 [place] [address] [address] Apr, Kidney disease N28.9 [place] [address] [address] Apr, Generalized anxiety disorder F41.1 and D ysthymic disorder F34.1 [place] [address] [address] Apr, Chronic kidney disease, stage 4 (severe) N18.4 [place] [address] [address] Apr, Generalized anxiety disorder F41.1 ; Fady or depression, recurrent F33.9 and Sleep disturbance G47.9 [place] [address] [address] Mar, Generalized anxiety disorder F41.1 and D ysthymic disorder F34.1 [place] [address] [address] Mar, Generalized anxiety disorder F41.1 ; 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 and Insomnia G47.00 [place] [address] [address] Mar, [place] [address] [address] Mar, [address] [address] Mar, Osteoarthritis of knees, bilateral M17.[address] [address] Mar, Hypertension I10 ; Hypothyroid E03.9 ; D ysthymic disorder F34.1 ; Chronic kidney disease, stage 4 (severe) N18.4 and Nausea & vomiting R11.2 [place] [address] [address] Mar, Generalized anxiety disorder F41.1 ; 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 and Insomnia G47.[address] [address] Mar, Dehydration E86.0 ; Chronic kidney disea se, stage 4 (severe) N18.4 and Nausea & vomiting R11.2 [facility] [address] [facility] [id number] [address] [place] [address] Mar, Gastroenteritis K52.[address] [id number] [place] [address] Mar, [address] [address] Mar, [address] [address] Feb, Dysthymic disorder F34.1 and Generalized anxiety disorder F41.[address] [address] Jan, UTI (urinary tract infection) N39.0 ; As thma J45.909 ; Coronary artery disease involving elim ira coronary artery of elim ira heart, angina presence unspecified I25.10 ; Hypertension I10 ; Hypothyroid E03.9 ; Vitamin D deficiency E55.9 ; Insomnia G47.00 ; Palpitations R00.2 ; Depressed F32.9 ; Restless leg G25.81 and Anxiety F41.[address] [address] Jan, Dysthymic disorder F34.1 and Generalized anxiety disorder F41.[address] [address] Jan, [address] [address] Dec, [address] [address] Dec, Alkalosis 276.3 ; Chronic kidney disease , Stage IV (severe) 585.4 ; Hyperpotassemia 276.7 ; Secondary hyperparathyroidism, renal 588.81 ; Proteinuria 791.0 ; Unspecified vitamin D deficiency 268.9 ; Anemia in chronic kidney disease 285.21 ; Other and unspecified hyperlipidemia 272.4 ; Hypertension, essential, benign 401.1 and Chronic kidney disease (CKD), stage III (moderate) 585.[address] [address] 16 Dec, [address] [address] Dec, Depressive disorder, not elsewhere class ified 311 and Generalized anxiety disorder 300.02 [facility] [address] [address] Dec, [facility] [address] [address] Dec, [facility] [address] [address] Nov, Depressive disorder, not elsewhere class ified 311 and Generalized anxiety disorder 300.02 [place] [address] [address] Nov, Arthritis of both knees 716.96 [place] [address] [address] Nov, PAF (paroxysmal atrial fibrillation) 427 .31 ; CAD (coronary artery disease) 414.00 ; Chest pain 786.50 and Chronic kidney disease (CKD) stage G4/A1, severely decreased glomerular filtration rate (GFR) between 15-29 mL/min/1.73 square meter and albuminuria creatinine ratio less than 30 mg/g 585.4 [place] [address] [address] Oct, Coronary atherosclerosis of unspecified type of vessel, elim ira or graft 414.00 ; Chronic kidney disease, Stage IV (severe) 585.4 ; Hypertension 401.9 and Edema 782.3 [place] [address] [address] Oct, Depressive disorder, not elsewhere class ified 311 and Generalized anxiety disorder 300.02 [facility] [address] [address] Oct, Depressive disorder, not elsewhere class ified 311 and Generalized anxiety disorder 300.02 [facility] [address] [address] Oct, [facility] [address] [address] Oct, [place] [address] [address] Sep, [facility] [address] [address] Sep, Chronic kidney disease, Stage IV (severe ) 585.4 [place] [address] [address] Sep, [facility] [address] [address] Sep, Coronary atherosclerosis of unspecified type of vessel, elim ira or graft 414.00 ; Hypertension 401.9 ; Edema 782.3 and Hypothyroidism 244.[address] [address] Sep, Coronary atherosclerosis of unspecified type of vessel, elim ira or graft 414.00 ; Hypertension 401.9 ; Fibromyalgia 729.1 ; Edema 782.3 ; Hypothyroidism 244.9 and Anemia 285.[address] [address] Sep, Anxiety disorder, unspecified 300.00 and Depressive disorder, not elsewhere classified [address] [address] Sep, [address] [address] August, Generalized anxiety disorder 300.[address] [address] August, Closed fracture of lateral malleolus 824 .[address] [address] Jul, [address] [address] Jul, [address] [address] Jun, [address] [address] Jun, [facility] [place] [facility] [address] [facility] [id number] [facility] [place] [address] Jun, [facility] [place] [facility] [address] [facility] [id number] [facility] [place] [address] Jun, [facility] [place] [facility] [address] [facility] [id number] [facility] [place] [address] Jun, [facility] [place] [facility] [address] [id number] [facility] [place] [address] Jun, [facility] [place] [facility] [address] [facility] [id number] [facility] [place] [address] May, [facility] [place] [facility] [address] [id number] [place] [address] May, 2014 [facility] [place] [facility] [address] [id number] [place] [address] 18 May, 2014 [facility] [place] [facility] [address] [id number] [place] [address] 18 May, 2014 [facility] [place] [facility] [address] [id number] [facility] [place] [address] 16 May, 2014 [facility] [place] [facility] [address] [id number] [place] [address] 16 May, 2014 [facility] [place] [facility] [address] [id number] [place] [address] 13 May, 2014 [facility] [place] [facility] [address] [id number] [place] [address] 13 May, 2014 [facility] [place] [facility] [address] [id number] [facility] [place] [address] 10 May, 2014 [facility] [place] [facility] [address] [id number] [place] [address] May, 2014 [facility] [place] [facility] [address] [id number] [place] [address] Apr, [facility] [place] [facility] [address] [id number] [place] [address] Apr, [facility] [place] [facility] [address] [id number] [place] [address] Mar, [facility] [place] [facility] [address] [id number] [place] [address] Mar, [facility] [place] [facility] [address] [id number] [place] [address] Mar, [facility] [place] [facility] [address] [id number] [place] [address] 15 Mar, 2014 [facility] [place] [facility] [address] [id number] [place] [address] 15 Mar, 2014 [facility] [place] [facility] [address] [id number] [place] [address] 15 Mar, 2014 [facility] [place] [facility] [address] [id number] [place] [address] Mar, [facility] [place] [facility] [address] [id number] [place] [address] Feb, [facility] [place] [facility] [address] [id number] [place] [address] Feb, [facility] [place] [facility] [address] [id number] [place] [address] Feb, [facility] [place] [facility] [address] [id number] [place] [address] Jan, [facility] [place] [facility] [address] [id number] [place] [address] Jan, [facility] [place] [facility] [address] [id number] [place] [address] Jan, [facility] [place] [facility] [address] [id number] [place] [address] Jan, [facility] [place] [facility] [address] [id number] [place] [address] Jan, [facility] [place] [facility] [address] [id number] [place] [address] Jan, [facility] [place] [facility] [address] [id number] [place] [address] Jan, [facility] [place] [facility] [address] [facility] [id number] [place] [address] Jan, [facility] [place] [facility] [address] [facility] [id number] [place] [address] Jan, [facility] [place] [facility] [address] [facility] [id number] [place] [address] Jan, [facility] [place] [facility] [address] [facility] [id number] [place] [address] Nov, [facility] [place] [facility] [address] [facility] [id number] [place] [address] Nov, [facility] [place] [facility] [address] [id number] [place] [address] Nov, [facility] [place] [facility] [address] [id number] [place] [address] Oct, [facility] [place] [facility] [address] [id number] [place] [address] Oct, [facility] [place] [facility] [address] [id number] [place] [address] Oct, [facility] [place] [facility] [address] [id number] [place] [address] Oct, [facility] [place] [facility] [address] [id number] [place] [address] Oct, [facility] [place] [facility] [address] [id number] [place] [address] Oct, [facility] [place] [facility] [address] [facility] [id number] [place] [address] Oct, [facility] [place] [facility] [address] [facility] [id number] [place] [address] Oct, [facility] [place] [facility] [address] [id number] [place] [address] Oct, [facility] [place] [facility] [address] [id number] [place] [address] Sep, [facility] [place] [facility] [address] [id number] [place] [address] Sep, [facility] [place] [facility] [address] [facility] [id number] [facility] [place] [address] Sep, [facility] [place] [facility] [address] [facility] [id number] [place] [address] Sep, [facility] [place] [facility] [address] [id number] [place] [address] Sep, [facility] [place] [facility] [address] [id number] [place] [address] Sep, [facility] [place] [facility] [address] [facility] [id number] [place] [address] Sep, [facility] [place] [facility] [address] [id number] [place] [address] Sep, [facility] [place] [facility] [address] [id number] [place] [address] Sep, [facility] [place] [facility] [address] [id number] [place] [address] August, [facility] [place] [facility] [address] [id number] [place] [address] August, [facility] [place] [facility] [address] [id number] [place] [address] August, [facility] [place] [facility] [address] [id number] [place] [address] August, [facility] [place] [facility] [address] [id number] [place] [address] August, [facility] [place] [facility] [address] [facility] [id number] [place] [address] August, [facility] [place] [facility] [address] [id number] [place] [address] Jul, [facility] [place] [facility] [address] [id number] [place] [address] Jul, [facility] [place] [facility] [address] [id number] [place] [address] Jul, [facility] [place] [facility] [address] [id number] [place] [address] 08 Jul, 2013 [facility] [place] [facility] [address] [id number] [place] [address] Jul, [facility] [place] [facility] [address] [id number] [place] [address] Jul, [facility] [place] [facility] [address] [id number] [place] [address] Jun, [facility] [place] [facility] [address] [id number] [place] [address] Jun, [facility] [address] [id number] [place] [address] May, [facility] [address] [id number] [place] [address] May, [facility] [address] [id number] [place] [address] May, [facility] [address] [id number] [place] [address] May, [facility] [address] [id number] [place] [address] Apr, [facility] [address] [id number] [place] [address] Apr, [facility] [address] [id number] [place] [address] 18 Mar, 2013 [facility] [address] [id number] [place] [address] 18 Mar, 2013 [facility] [address] [id number] [place] [address] 17 Mar, 2013 [facility] [address] [id number] [place] [address] 17 Mar, 2013 [facility] [address] [id number] [place] [address] 05 Mar, 2013 [facility] [address] [id number] [place] [address] Mar, [facility] [address] [id number] [place] [address] Feb, [facility] [address] [id number] [place] [address] Feb, [facility] [address] [id number] [place] [address] Feb, [facility] [address] [id number] [place] [address] Feb, [facility] [address] [id number] [place] [address] Feb, [facility] [address] [id number] [place] [address] Feb, [facility] [address] [id number] [place] [address] Jan, [facility] [address] [id number] [place] [address] 24 Jan, 2013 [facility] [address] [id number] [place] [address] Jan, [facility] [address] [id number] [place] [address] Jan, [facility] [address] [id number] [place] [address] 08 Jan, 2013 [facility] [address] [id number] [place] [address] Jan, [facility] [address] [id number] [place] [address] 12 Dec, 2012 [facility] [address] [id number] [place] [address] 09 Dec, 2012 [facility] [place] [facility] [address] [id number] [place] [address] Nov, [facility] [place] [facility] [address] [id number] [place] [address] Nov, [facility] [place] [facility] [address] [id number] [place] [address] Oct, [facility] [place] [facility] [address] [id number] [place] [address] Oct, [facility] [place] [facility] [address] [id number] [place] [address] Oct, [facility] [place] [facility] [address] [id number] [place] [address] Oct, [facility] [place] [facility] [address] [id number] [place] [address] Oct, [facility] [place] [facility] [address] [id number] [place] [address] Oct, [facility] [place] [facility] [address] [id number] [place] [address] Sep, [facility] [place] [facility] [address] [id number] [place] [address] Sep, [facility] [place] [facility] [address] [id number] [place] [address] Sep, [facility] [place] [facility] [address] [id number] [place] [address] Sep, [facility] [place] [facility] [address] [id number] [place] [address] August, [facility] [place] [facility] [address] [id number] [place] [address] August, [facility] [place] [facility] [address] [id number] [place] [address] August, [facility] [place] [facility] [address] [id number] [place] [address] August, [facility] [place] [facility] [address] [id number] [place] [address] August, [facility] [place] [facility] [address] [id number] [place] [address] Jul, [facility] [place] [facility] [address] [id number] [place] [address] Jul, [facility] [place] [facility] [address] [id number] [place] [address] 15 Jul, 2012 [facility] [address] [id number] [place] [address] Jul, [facility] [place] [facility] [address] [id number] [place] [address] Jul, [facility] [address] [id number] [place] [address] Jul, [facility] [place] [facility] [address] [id number] [place] [address] Jul, [facility] [address] [id number] [place] [address] Jul, [facility] [place] [facility] [address] [id number] [place] [address] Jul, [facility] [address] [id number] [place] [address] Jul, [facility] [address] [id number] Jun, [facility] [place] [facility] [address] [id number] [place] [address] Jun, [facility] [place] [facility] [address] [id number] [place] [address] Jun, [facility] [place] [facility] [address] [id number] [place] [address] Jun, [facility] [place] [facility] [address] [id number] [place] [address] Jun, [facility] [place] [facility] [address] [id number] [place] [address] May, [facility] [place] [facility] [address] [id number] [place] [address] May, [facility] [place] [facility] [address] [id number] [place] [address] May, [facility] [place] [facility] [address] [id number] [place] [address] Apr, [facility] [place] [facility] [address] [id number] [place] [address] Apr, [facility] [place] [facility] [address] [id number] [place] [address] Apr, [facility] [place] [facility] [address] [id number] [place] [address] Apr, [facility] [place] [facility] [address] [id number] [place] [address] Apr, [facility] [place] [facility] [address] [id number] [place] [address] Apr, [facility] [place] [facility] [address] [id number] [place] [address] Mar, [facility] [place] [facility] [address] [id number] [place] [address] Mar, [facility] [place] [facility] [address] [id number] [place] [address] Mar, [facility] [place] [facility] [address] [id number] [place] [address] Mar, [facility] [place] [facility] [address] [id number] [place] [address] Feb, [facility] [place] [facility] [address] [id number] [place] [address] Feb, [facility] [place] [facility] [address] [id number] [place] [address] Feb, [facility] [place] [facility] [address] [id number] [place] [address] Feb, [facility] [place] [facility] [address] [id number] [place] [address] Feb, [facility] [place] [facility] [address] [id number] [place] [address] Feb, [facility] [place] [facility] [address] [id number] [place] [address] Feb, [facility] [place] [facility] [address] [id number] [place] [address] Feb, [facility] [place] [facility] [address] [id number] [place] [address] Feb, [facility] [place] [facility] [address] [id number] [place] [address] Feb, [facility] [place] [facility] [address] [id number] [place] [address] Feb, [facility] [place] [facility] [address] [id number] [place] [address] Feb, [facility] [place] [facility] [address] [id number] [place] [address] Feb, [facility] [place] [facility] [address] [id number] [place] [address] Feb, [facility] [place] [facility] [id number] [place] [address] Feb, [facility] [place] [facility] [address] [id number] [place] [address] Feb, [facility] [place] [facility] [address] [id number] [place] [address] Jan, [facility] [place] [facility] [id number] [place] [address] Jan, [facility] [place] [facility] [address] [id number] [place] [address] Jan, [facility] [place] [facility] [id number] [place] [address] Jan, [facility] [place] [facility] [address] [id number] [place] [address] 30 Jan, 2012 [facility] [place] [facility] [id number] [place] [address] Jan, [facility] [place] [facility] [address] [id number] [place] [address] Jan, [facility] [place] [facility] [address] [id number] [place] [address] 16 Jan, 2012 [facility] [place] [facility] [address] [id number] [place] [address] 16 Jan, 2011 [facility] [place] [facility] [address] [id number] [place] [address] 15 Jan, 2012 [facility] [place] [facility] [address] [id number] [place] [address] 15 Jan, 2012 [facility] [place] [facility] [address] [id number] [place] [address] Jan, [facility] [place] [facility] [address] [id number] [place] [address] 26 Sep, 2011 [facility] [place] [facility] [address] [id number] [place] [address] 26 Sep, 2011 [facility] [place] [facility] [address] [id number] [place] [address] 24 Sep, 2011 [facility] [place] [facility] [address] [id number] [place] [address] 23 Sep, 2011 [facility] [place] [facility] [address] [id number] [place] [address] 22 Sep, 2011 [facility] [place] [facility] [address] [id number] [place] [address] 21 Sep, 2011 [facility] [place] [facility] [address] [id number] [place] [address] 20 Sep, 2011 [facility] [place] [facility] [address] [id number] [place] [address] 20 Sep, 2011 [facility] [place] [facility] [address] [id number] [place] [address] 07 Sep, 2011 [facility] [place] [facility] [address] [id number] [place] [address] 06 Sep, 2011 [facility] [place] [facility] [address] [id number] [place] [address] 06 Sep, 2011 [facility] [place] [facility] [address] [id number] [place] [address] 05 Sep, 2011 [facility] [place] [facility] [address] [id number] [place] [address] Nov, [facility] [place] [facility] [address] [id number] [facility] [place] [address] Nov, [facility] [place] [facility] [address] [facility] [id number] [facility] [place] [address] Nov, [facility] [place] [facility] [address] [facility] [id number] [facility] [place] [address] Nov, [facility] [place] [facility] [address] [facility] [id number] [facility] [place] [address] Nov, [facility] [place] [facility] [address] [facility] [id number] [place] [address] Nov, [facility] [place] [facility] [address] [id number] [place] [address] Nov, [facility] [place] [facility] [address] [id number] [facility] [place] [address] Nov, [facility] [place] [facility] [address] [id number] [facility] [place] [address] Oct, [facility] [place] [facility] [address] [facility] [id number] [facility] [place] [address] Oct, [facility] [place] [facility] [address] [id number] [facility] [place] [address] Oct, [facility] [place] [facility] [address] [id number] [place] [address] Oct, [facility] [place] [facility] [address] [id number] [place] [address] Oct, [facility] [place] [facility] [address] [facility] [id number] [facility] [place] [address] Oct, [facility] [place] [facility] [address] [facility] [id number] [facility] [place] [address] Oct, [facility] [place] [facility] [address] [facility] [id number] [place] [address] Sep, [facility] [place] [facility] [address] [id number] [facility] [place] [address] Sep, [facility] [place] [facility] [address] [id number] [place] [address] August, [facility] [place] [facility] [address] [id number] [place] [address] August, [facility] [place] [facility] [address] [id number] [place] [address] August, [facility] [place] [facility] [address] [id number] [place] [address] August, [facility] [place] [facility] [address] [id number] [place] [address] Jul, [facility] [place] [facility] [address] [id number] [place] [address] Jul, [facility] [place] [facility] [address] [id number] [place] [address] Jul, [facility] [place] [facility] [address] [id number] [place] [address] Jul, [facility] [place] [facility] [address] [id number] [place] [address] Jul, [facility] [place] [facility] [address] [id number] [place] [address] Jul, [facility] [place] [facility] [address] [id number] [place] [address] Jul, [facility] [place] [facility] [address] [id number] [place] [address] Jul, [facility] [place] [facility] [address] [id number] [place] [address] Jul, [facility] [place] [facility] [address] [id number] [place] [address] Jun, [facility] [place] [facility] [address] [id number] [place] [address] 19 Jun, 2011 [facility] [place] [facility] [address] [id number] [place] [address] 15 Jun, 2011 [facility] [place] [facility] [address] [id number] [place] [address] 14 Jun, 2011 [facility] [place] [facility] [address] [id number] [place] [address] Jun, [facility] [place] [facility] [address] [id number] [place] [address] Jun, [facility] [place] [facility] [address] [id number] [place] [address] Jun, [facility] [address] [id number] [place] [address] May, [facility] [place] [facility] [address] [id number] [place] [address] May, [facility] [place] [facility] [address] [id number] [place] [address] May, [facility] [place] [facility] [address] [id number] [place] [address] May, [facility] [place] [facility] [id number] [place] [address] May, [facility] [place] [facility] [address] [id number] [place] [address] Apr, [facility] [place] [facility] [id number] [place] [address] Apr, [facility] [place] [facility] [address] [id number] [place] [address] Apr, [facility] [place] [facility] [address] [id number] [place] [address] Apr, [facility] [place] [facility] [address] [id number] [place] [address] Apr, [facility] [place] [facility] [address] [id number] [place] [address] Mar, [facility] [place] [facility] [address] [id number] [place] [address] Mar, [facility] [place] [facility] [address] [id number] [place] [address] Mar, [facility] [place] [facility] [address] [id number] [place] [address] Mar, [facility] [place] [facility] [address] [id number] [place] [address] Mar, [facility] [place] [facility] [address] [id number] [place] [address] Mar, [facility] [place] [facility] [address] [id number] [place] [address] Mar, [facility] [place] [facility] [address] [id number] [place] [address] Feb, [facility] [place] [facility] [address] [id number] [place] [address] Feb, [facility] [place] [facility] [address] [id number] [place] [address] Feb, [facility] [place] [facility] [address] [id number] [place] [address] Feb, [facility] [place] [facility] [address] [id number] [place] [address] Jan, [facility] [place] [facility] [address] [id number] [place] [address] Jan, [facility] [place] [facility] [address] [id number] [place] [address] Jan, [facility] [place] [facility] [address] [id number] [place] [address] Jan, [facility] [place] [facility] [address] [id number] [place] [address] Nov, [facility] [place] [facility] [address] [id number] [place] [address] Mar, [facility] [place] [facility] [address] [id number] [place] [address] Mar, [facility] [place] [facility] [address] [id number] [place] [address] Mar, [facility] [place] [facility] [address] [id number] [place] [address] Mar, [facility] [place] [facility] [address] [id number] [place] [address] Mar, [facility] [address] [id number] [place] [address] Mar, [facility] [address] [id number] [place] [address] Feb, [facility] [id number] [place] [address] Feb, [facility] [id number] [place] [address] Jan, [facility] [address] [address] Jan, [facility] [address] [id number] [place] [address] Jan, IMMUNIZATIONS No Known Immunizations SOCIAL HISTORY [...] History CPAP Noncompliance_ Dr. Madden advises a Virtual Event [employer] driving. 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 2018 Surgical History right shoulder surgery to repair torn te ndons 02/2019 Hospitalization History Surgeries Only Hospitalization History bacterial meningitis December [address] [facility] psych for SI 1988 Hospitalization History [facility]-Altered mental status 05/2017 Hospitalization History sepsis, UTI, headache 08/03/2018-
--- OUTSIDE RECORDS SUMMARY | 2019-08-01 10:06 | XMS REPORT ---
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 Name Role Phone Migration, Doctor Unavailable Unavailable PROBLEMS Type Condition ICD9-CM Code PAK01-DX Code Onset Dates Condition S tatus SNOMED Code Problem Generalized anxiety disorder F41.1 A ctive 73733260 Problem Low back pain M54.5 Active 022681 009 Problem Insomnia G47.00 Active 658741484 Problem Hypothyroid E03.9 Active 63504063 Problem Palpitations R00.2 Active 7824042 2 Problem Asthma J45.909 Active 047670640 Problem Mixed stress and urge urinary incontinence N39.46 Active 755365135 Problem Fibromyalgia M79.7 Active 1100597 05 Problem Stage 3 chronic kidney disease N18.3 Active 305016244 Problem Body mass index (BMI) of 40.0-44.9 in adult Z68.41 Active 076799127 Problem Seasonal allergic rhinitis due to pollen J30.1 Active 52957298 Problem Atherosclerosis of levelock co ronary artery of levelock heart with angina pectoris I25.119 Active 5000205825579 Problem Primary osteoarthritis of left knee M17.12 Active 800648934 Problem Hypercholesterolemia E78.00 Active 09639836 Problem Essential (primary) hypertension I10 Active 83828165 Problem Restless leg syndrome G25.81 Active 73335169 Problem Chronic pain syndrome G89.4 Active 006145513 Problem Perimenopausal vasomotor symptoms N95.1 Active 085910511 Problem Major depressive disorder, recurrent, moderate F33 .1 Active 599176449 ALLERGIES No Information ENCOUNTERS Encounter Location Date Diagnosis [facility] [id number] [place] [address] Apr, [facility] [address] [address] Apr, [facility] [address] [id number] [place] [address] Apr, Chronic pain syndrome G89.4 [address] [address] [address] Apr, Acute pain of right knee M25.561 [address] [address] [address] Apr, [place] [address] [address] Mar, Major depressive disorder, recurrent, mo derate F33.1 ; Generalized anxiety disorder F41.1 and Dysthymic disorder F34.1 [facility] [address] [facility] [id number] [address] [place] [address] Mar, Fluid collection of middle e ar H65.90 and Dizziness R42 [address] [address] [address] Mar, [address] [address] [address] Mar, [place] [address] [address] Mar, Essential (primary) hypertension I10 ; S tage 3 chronic kidney disease N18.3 ; Hypercholesterolemia E78.00 ; Asthma J45.909 ; Recurrent UTI N39.0 ; Status post shoulder surgery Z98.890 and Encounter for immunization Z23 [address] [address] [address] Mar, Chronic pain syndrome G89.4 [place] [address] [address] Feb, [address] [address] [address] Feb, [place] [address] [address] Feb, Oral thrush B37.0 and Sore throat J02.9 [place] [address] [address] Feb, Chronic pain syndrome G89.4 [address] [address] [address] Jan, [place] [address] [address] 14 Jan, 2019 Chronic pain syndrome G89.4 [address] [address] [address] 02 Jan, 2019 Hypercholesterolemia E78.00 [address] [address] [address] Jan, [place] [address] [address] Dec, Chronic kidney disease, stage 4 (severe) N18.4 [address] [address] [address] Dec, Major depressive disorder, recurrent, mo derate F33.1 ; Generalized anxiety disorder F41.1 and Dysthymic disorder F34.1 [place] [address] [address] Dec, Generalized anxiety disorder F41.1 and M shiraor depressive disorder, recurrent episode with anxious distress F33.9 [address] [address] [address] Dec, [address] [address] [address] Dec, [place] [address] [address] Dec, Encounter for immunization Z23 [address] [address] [address] Dec, Diarrhea, unspecified type R19.7 and Hem orrhoids, unspecified hemorrhoid type K64.9 [address] [address] [address] Dec, Encounter for Medicare annual wellness e xam Z00.00 ; Chronic kidney disease, stage 4 (severe) N18.4 ; Encounter for immunization Z23 ; Major depressive disorder, recurrent, moderate F33.1 ; Atherosclerosis of levelock coronary artery of levelock heart with angina pectoris I25.119 ; Asthma J45.909 ; Hypothyroid E03.9 and Fibromyalgia M79.7 [address] [address] [address] Dec, Chronic pain syndrome G89.4 [address] [address] [address] Nov, Major depressive disorder, recurrent, mo derate F33.1 ; Generalized anxiety disorder F41.1 and Dysthymic disorder F34.1 [address] [address] [address] Nov, [address] [address] [address] Nov, Chronic pain syndrome G89.4 [address] [address] [address] Nov, Restless leg syndrome G25.81 [address] [address] [address] Nov, Pain in right shoulder M25.511 ; Restles s leg syndrome G25.81 ; Other chronic pain G89.29 ; Screening for breast cancer Z12.39 ; Insomnia G47.00 and Morbid obesity E66.01 [address] [address] [address] Nov, [place] [address] [address] Oct, Major depressive disorder, recurrent, mo derate F33.1 ; Generalized anxiety disorder F41.1 and Dysthymic disorder F34.1 [address] [address] [address] Oct, [place] [address] [address] Oct, Cellulitis of left lower extremity L03.1 16 and Morbid obesity E66.01 [facility] [address] [facility] [id number] [place] [address] Oct, [facility] [address] [address] Oct, [facility] [address] [address] Oct, Generalized anxiety disorder F41.1 and M zion depressive disorder, recurrent episode with anxious distress F33.9 [facility] [address] [id number] [place] [address] 15 Oct, 2018 [facility] [address] [address] Oct, Chronic pain syndrome G89.4 [facility] [address] [address] Oct, Chronic pain syndrome G89.4 [facility] [address] [id number] [address] [place] [address] Oct, UTI symptoms R39.9 ; Acute c ystitis without hematuria N30.00 and Morbid obesity E66.01 [facility] [address] [address] Oct, [facility] [address] [address] Oct, Chronic pain syndrome G89.4 [address] [address] [address] Sep, [place] [address] [address] Sep, Generalized anxiety disorder F41.1 and M zion depressive disorder, recurrent episode with anxious distress F33.9 [address] [address] [address] 17 Sep, 2018 Chronic kidney disease, stage 4 (severe) N18.4 [address] [address] [address] Sep, Fibromyalgia M79.7 and Chronic pain synd lisseth G89.4 [facility] [id number] [place] [address] Sep, [facility] [address] [address] [place] [address] Sep, Chronic pain syndrome G89.4 [facility] [id number] [place] [address] Sep, [facility] [address] [address] Sep, Chronic pain syndrome G89.4 ; Fibromyalg ia M79.7 and Morbid obesity E66.01 [facility] [id number] [place] [address] August, Generalized anxiety disorder F41.1 and M ajor depressive disorder, recurrent episode with anxious distress F33.9 [address] [id number] [place] [address] August, Fibromyalgia M79.7 [facility] [id number] [place] [address] August, Restless leg syndrome G25.81 ; Vitamin D deficiency E55.9 ; Urinary tract infection without hematuria, site unspecified N39.0 ; Pain in right shoulder M25.511 ; Other chronic pain G89.29 ; Biceps tendinitis on right M75.21 and Morbid obesity E66.01 [facility] [id number] [place] [address] Jul, Urinary tract infection without hematuri a, site unspecified N39.0 and Morbid obesity E66.01 [facility] [id number] [place] [address] Jul, [facility] [address] [address] Jul, [facility] [id number] [place] [address] Jul, Fibromyalgia M79.7 [facility] [address] [address] Jul, Acute pain of right shoulder M25.511 [address] [address] [address] Jul, Acute pain of right shoulder M25.511 and Morbid obesity E66.01 [address] [address] [address] Jun, [address] [address] [address] Jun, Generalized anxiety disorder F41.1 and M zion depressive disorder, recurrent episode with anxious distress F33.9 [address] [address] [address] Jun, [address] [address] [address] Jun, Fibromyalgia M79.7 [facility] [address] [facility] [id number] [place] [address] Jun, Acute pain of right shoulder M25.511 ; Acute pain of right hip M25.551 and Morbid obesity E66.01 [address] [address] [address] May, Burning with urination R30.0 ; Vaginal d ischarge N89.8 ; Chronic kidney disease, stage 4 (severe) N18.4 ; Body mass index (BMI) of 40.0-44.9 in adult Z68.41 and Morbid obesity E66.01 [address] [address] [address] 07 May, 2018 Fibromyalgia M79.7 [address] [address] [address] May, Generalized anxiety disorder F41.1 and M zion depressive disorder, recurrent episode with anxious distress F33.9 [address] [address] [address] Apr, [address] [address] [address] 08 Apr, 2018 Fibromyalgia M79.7 [facility] [address] [id number] [address] [place] [address] 14 Mar, 2018 Acute UTI N39.0 and Dysuria R30.0 [facility] [address] [address] Mar, Fibromyalgia M79.7 [facility] [address] [address] Feb, [facility] [address] [address] Feb, [address] [address] Feb, [address] [address] [address] Feb, Fibromyalgia M79.7 [address] [place] [address] [address] 08 Feb, 2018 Complicated UTI (urinary tract infection ) N39.0 [address] [place] [address] [address] Feb, [facility] [address] [address] Jan, Generalized anxiety disorder F41.1 and M zion depressive disorder, recurrent episode with anxious distress F33.9 [facility] [address] [facility] [id number] [address] [place] [address] Jan, Acute conjunctivitis of left eye, unspecified acute conjunctivitis type H10.32 [facility] [address] [address] Jan, [address] [address] Jan, Acute non-recurrent maxillary sinusitis J01.00 ; Dysuria R30.0 ; Perimenopausal vasomotor symptoms N95.1 and Fibromyalgia M79.7 [facility] [address] [address] 28 Dec, 2017 Vitamin D deficiency E55.9 [facility] [address] [address] Dec, Vitamin D deficiency E55.9 [facility] [address] [address] 24 Dec, 2017 Vitamin D deficiency E55.9 [facility] [address] [address] Dec, [facility] [address] [address] Dec, Fibromyalgia M79.7 [address] [place] [address] Nov, [address] [address] [address] Nov, [facility] [address] [address] Nov, [facility] [address] [address] Nov, Fibromyalgia M79.7 ; Vision changes H53. 9 ; Chest wall pain R07.89 and Chronic pain syndrome G89.4 [address] [place] [address] Nov, [facility] [address] [address] Nov, Rash of hands R21 [address] [address] [address] Nov, Generalized anxiety disorder F41.1 and M shiraor depressive disorder, recurrent episode with anxious distress F33.9 [address] [place] [address] [address] Nov, Fibromyalgia M79.7 [facility] [address] [address] Nov, Complicated UTI (urinary tract infection ) N39.0 [address] [address] [address] Oct, [facility] [address] [address] Oct, Generalized anxiety disorder F41.1 and Tae donovan depressive disorder, recurrent episode with anxious distress F33.9 [address] [place] [address] Oct, [address] [address] [address] Oct, Fibromyalgia M79.7 [address] [place] [address] [address] Sep, Restless leg syndrome G25.81 and Restles s leg G25.81 [address] [place] [address] Sep, [address] [address] [address] Sep, Seasonal allergic rhinitis due to pollen J30.1 ; Screening for breast cancer Z12.31 ; Chest pain at rest R07.9 ; Restless leg syndrome G25.81 ; Essential (primary) hypertension I10 and Depressed F32.9 [address] [address] [address] August, Fibromyalgia M79.7 [address] [place] [address] [address] August, [address] [address] [address] August, [address] [address] [address] August, Abnormal chest CT R93.8 [address] [address] [address] August, Generalized anxiety disorder F41.1 and Tae donovan depressive disorder, recurrent episode with anxious distress F33.9 [address] [address] [address] August, Abnormal chest CT R93.8 [address] [address] [address] Jul, [address] [address] [address] Jul, Chronic kidney disease, stage 4 (severe) N18.4 [address] [place] [address] [address] Jul, [address] [address] [address] Jul, Restless leg G25.81 ; Mixed stress and u rge urinary incontinence N39.46 and Fibromyalgia M79.7 [address] [address] [address] Jul, Chronic kidney disease, stage 4 (severe) N18.4 [address] [address] [address] Jun, Orthostatic hypotension I95.1 ; Chronic kidney disease, stage 4 (severe) N18.4 ; Chest wall discomfort R07.89 and Body mass index (BMI) of 40.0- 44.9 in adult Z68.41 [address] [address] [address] Jun, [address] [address] [address] Jun, Orthostatic hypotension I95.1 [address] [place] [address] [address] Jun, [facility] [address] [facility] [id number] [address] [place] [address] Jun, Orthostatic hypotension I95. 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 N18.3 [facility] [address] [address] May, Chronic kidney disease, stage 4 (severe) N18.4 [facility] [address] [address] May, Chronic kidney disease, stage 4 (severe) N18.4 [facility] [address] [address] May, Abnormal chest [address] R93.8 [facility] [address] [address] May, [facility] [address] [address] May, [facility] [address] [address] May, Generalized anxiety disorder F41.1 and Tae donovan depressive disorder, recurrent episode with anxious distress F33.9 [facility] [address] [address] May, Mood disorder F39 [facility] [address] [address] Apr, [facility] [id number] [place] [address] Apr, Infected skin lesion L08.[address] rain of right shoulder region, initial encounter S46.911A [facility] [id number] [place] [address] Apr, Generalized anxiety disorder F41.1 and Tae donovan depressive disorder, recurrent episode with anxious distress F33.9 [facility] [id number] [place] [address] Apr, [address] [place] [address] [address] Apr, Recent urinary tract infection Z87.440 a nd Hypothyroid E03.9 [facility] [address] [address] Apr, Generalized anxiety disorder F41.1 and Tae donovan depressive disorder, recurrent episode with anxious distress F33.9 [facility] [id number] [place] [address] Apr, Recent urinary tract infection Z87.440 [facility] [address] [address] Mar, [facility] [address] [facility] [id number] [address] [place] [address] Mar, Dysuria R30.0 ; Acute cystit is without hematuria N30.00 and BMI 40.0-44.9, adult Z68.41 [facility] [id number] [place] [address] Mar, [facility] [address] [address] Mar, [facility] [address] [address] Mar, Generalized anxiety disorder F41.1 and Tae donovan depressive disorder, recurrent episode with anxious distress F33.9 [place] [address] [address] Feb, Conjunctivitis, bacterial H10.9 [place] [address] [address] Feb, [facility] [address] [facility] [id number] [address] [place] [address] Feb, Conjunctivitis, bacterial H1 0.9 [place] [address] [address] Feb, [facility] [address] [facility] [id number] [address] [place] [address] Feb, Dysuria R30.0 ; Acute cystit is N30.00 and BMI 40.0-44.9, adult Z68.41 [place] [address] [address] Feb, [place] [address] [address] Feb, Generalized anxiety disorder F41.1 and M ajor depressive disorder, recurrent episode with anxious distress F33.9 [place] [address] [address] Feb, Mood disorder F39 and BMI 40.0-44.9, feli lt Z68.41 [place] [address] [address] Jan, [place] [address] [address] Jan, [place] [address] [address] Jan, Hypothyroid E03.9 [place] [address] [address] Jan, [place] [address] [address] Jan, Chronic kidney disease, unspecified N18. 9 ; Hypokalemia E87.6 ; Essential (primary) hypertension I10 ; Fibromyalgia M79.7 ; Coronary artery disease involving levelock coronary artery of levelock heart, angina presence unspecified I25.10 ; Hypothyroid E03.9 and Encounter for immunization Z23 [place] [address] [address] 04 Jan, 2017 Hypothyroid E03.9 [place] [address] [address] Jan, [place] [address] [address] Dec, Vitamin D deficiency E55.9 [place] [address] [address] Dec, Primary osteoarthritis of left knee M17. 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 [place] [address] [address] 19 Dec, 2016 Fibromyalgia M79.7 [place] [address] [address] 18 Dec, 2016 Mood disorder F39 [place] [address] [address] 13 Dec, 2016 [place] [address] [address] 13 Dec, 2016 Generalized anxiety disorder F41.1 and M shiraor depressive disorder, recurrent episode with anxious distress F33.9 [place] [address] [address] 11 Dec, 2016 [place] [address] [address] 08 Dec, 2016 Streptococcal meningitis G00.2 [place] [address] [address] 07 Dec, 2016 Streptococcal meningitis G00.2 [place] [address] [address] 07 Dec, 2016 [place] [id number] [place] [address] 06 Dec, 2016 Streptococcal meningitis G00.2 [facility] [address] [address] Dec, [facility] [address] [address] Dec, Major depressive disorder, recurrent epi sode with anxious distress F33.9 [facility] [address] [address] Nov, Fever, unspecified fever cause R50.9 [facility] [address] [address] Nov, [facility] [address] [address] Nov, Hypothyroid E03.9 [facility] [address] [address] Nov, Generalized anxiety disorder F41.1 and M shiraor depressive disorder, recurrent episode with anxious distress F33.9 [facility] [id number] [place] [address] Nov, [facility] [id number] [place] [id number] Oct, Dental examination Z01.20 [place] [address] [address] Oct, Generalized anxiety disorder F41.1 and M ajor depressive disorder, recurrent episode with anxious distress F33.9 [facility] [id number] [place] [address] Oct, Chronic kidney disease, stage 4 (severe) N18.4 [facility] [address] [address] Oct, [facility] [address] [address] Oct, Fibromyalgia M79.7 [facility] [address] [address] Oct, [place] [address] [address] Oct, Generalized anxiety disorder F41.1 ; Fady or depressive disorder, recurrent episode with anxious distress F33.9 and Bipolar disorder, current episode manic without psychotic features F31.10 [place] [address] [address] Sep, [place] [address] [address] Sep, [address] [address] Sep, Vitamin D deficiency E55.9 [place] [address] [address] 14 Sep, 2016 Vitamin D deficiency E55.9 [place] [address] [address] Sep, [place] [address] [address] Sep, Chronic kidney disease, stage 4 (severe) N18.4 ; Hypothyroid E03.9 ; Restless leg G25.81 ; Fibromyalgia M79.7 ; Essential (primary) hypertension I10 ; Vitamin D deficiency E55.9 ; Dyspepsia R10.13 ; Anemia in chronic kidney disease D63.1 ; Chronic kidney disease, unspecified N18.9 ; Coronary artery disease involving [place]ock coronary artery of levelock heart, angina presence unspecified I25.10 ; Screening breast examination Z12.39 and Low back pain M54.5 [place] [address] [address] August, Generalized anxiety disorder F41.1 and Tae donovan depressive disorder, recurrent episode with anxious distress F33.9 [place] [address] [address] August, Generalized anxiety disorder F41.1 and Tae donovan depressive disorder, recurrent episode with anxious distress F33.9 [place] [address] [address] August, Fibromyalgia M79.7 [place] [address] [address] Jul, Generalized anxiety disorder F41.1 and Tae donovan depressive disorder, recurrent episode with anxious distress F33.9 [place] [address] [address] Jul, Fibromyalgia M79.7 [place] [address] [address] Jul, Generalized anxiety disorder F41.1 [place] [address] [address] May, [place] [address] [address] May, Hypothyroid E03.9 [place] [address] [address] May, Chronic kidney disease, stage 4 (severe) N18.4 ; Hypothyroid E03.9 ; Restless leg G25.81 ; Fibromyalgia M79.7 ; Essential (primary) hypertension I10 ; Vitamin D deficiency E55.9 ; Dyspepsia R10.13 ; Acute non-recurrent maxillary sinusitis J01.00 ; Anemia in chronic kidney disease D63.1 ; Chronic kidney disease, unspecified N18.9 and Coronary artery disease involving levelock coronary artery of levelock heart, angina presence unspecified I25.10 [place] [address] [address] May, Vitamin D deficiency, unspecified E55.[address] [address] May, Generalized anxiety disorder F41.1 and Tae donovan depressive disorder, recurrent episode with anxious distress F33.9 [place] [address] [address] 09 Luis, 2017 Pain in right knee M25.561 and Pain in l eft knee M25.562 [facility] [address] [address] Apr, [place] [address] [address] Apr, [place] [address] [address] Apr, [place] [address] [address] Mar, Generalized anxiety disorder F41.1 and M zion depressive disorder, recurrent episode with anxious distress F33.9 [place] [address] [address] Mar, Generalized anxiety disorder F41.1 and M zion depressive disorder, recurrent episode with anxious distress F33.9 [place] [address] [address] Mar, [place] [address] [address] Mar, [place] [address] [address] Mar, [place] [address] [address] Mar, Asthma J45.909 and Fibromyalgia M79.7 [place] [address] [address] Mar, Chronic kidney disease, stage 4 (severe) N18.4 ; Vitamin D deficiency E55.9 and Essential (primary) hypertension I10 [place] [address] [address] Feb, [place] [address] [address] Feb, Dysuria R30.0 ; Mixed stress and urge ur inary incontinence N39.46 ; Fibromyalgia M79.7 and Chronic kidney disease, stage IV (severe) N18.4 [place] [address] [address] Feb, Chronic kidney disease, stage 4 (severe) N18.4 [facility] [address] [address] Feb, Chronic kidney disease, stage 4 (severe) N18.4 [place] [address] [address] Feb, [facility] [address] [address] Feb, Vitamin D deficiency, unspecified E55.9 [place] [address] [address] Jan, [place] [address] [address] Jan, [place] [address] [address] 30 Dec, 2015 [place] [address] [address] Dec, Chronic kidney disease, stage 4 (severe) N18.4 [place] [address] [address] Dec, Dysthymic disorder F34.1 and Generalized anxiety disorder F41.1 [place] [address] [address] 27 Dec, 2015 [place] [address] [address] Dec, [place] [address] [address] 08 Dec, 2015 Dysthymic disorder F34.1 and Generalized anxiety disorder F41.1 [place] [address] [address] 08 Dec, 2015 Dysuria R30.0 ; Chronic kidney disease, stage 4 (severe) N18.4 ; Hypertension I10 ; Dyspepsia R10.13 ; Yeast dermatitis B37.2 ; Palpitations R00.2 ; Hypothyroid E03.9 ; Functional diarrhea K59.1 and Other seasonal allergic rhinitis J30.2 [facility] [address] [place] [address] Dec, [facility] [address] [place] [id number] [place] [address] Nov, Dysuria R30.0 and Stress inc ontinence N39.3 [place] [address] [address] Nov, [place] [address] [address] Nov, [place] [address] [address] Nov, Osteoarthritis of knees, bilateral M17.0 [place] [address] [address] Nov, Dysthymic disorder F34.1 and Generalized anxiety disorder F41.1 [place] [address] [address] Nov, [place] [address] [address] Nov, [place] [address] [address] Nov, Urgency of urination R39.15 [place] [address] [address] Nov, [place] [address] [address] Nov, Chronic kidney disease, stage 4 (severe) N18.4 [place] [address] [address] Oct, Hypertension I10 ; Coronary artery disea se involving levelock coronary artery of levelock heart, angina presence unspecified I25.10 ; Palpitations R00.2 ; Hypothyroid E03.9 ; Right foot pain M79.671 ; Functional diarrhea K59.1 and Other seasonal allergic rhinitis J30.2 [place] [address] [address] Oct, Dysthymic disorder F34.1 and Generalized anxiety disorder F41.1 [place] [address] [address] Sep, [place] [address] [address] Sep, [place] [address] [address] Sep, [place] [address] [address] Sep, [place] [address] [address] Sep, [place] [address] [address] Sep, Dysthymic disorder F34.1 and Generalized anxiety disorder F41.1 [place] [address] [address] 16 Sep, 2015 Asthma with acute exacerbation in adult J45.901 ; Dysuria R30.0 ; Chronic kidney disease, stage 4 (severe) N18.4 and History of anemia Z86.2 [place] [address] [address] Sep, Generalized anxiety disorder F41.1 and D ysthymic disorder F34.1 [place] [address] [address] August, Screening breast examination Z12.39 and Acute recurrent maxillary sinusitis J01.[address] [address] August, Osteoarthritis of knees, bilateral M17.[address] [address] August, Chronic kidney disease, stage 4 (severe) N18.4 ; Acute non-recurrent maxillary sinusitis J01.00 ; Urinary problem R39.89 ; Bowel habit changes R19.4 ; Functional diarrhea K59.1 and History of colon polyps Z86.010 [place] [address] [address] 29 Jul, 2015 Dysthymic disorder F34.1 and Generalized anxiety disorder F41.1 [place] [address] [address] Jul, [place] [address] [address] Jul, Dysthymic disorder F34.1 ; Generalized a nxiety disorder F41.1 and 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 [place] [address] [address] Jul, [place] [address] [address] Jun, [place] [address] [address] Jun, [place] [address] [address] May, [place] [address] [address] May, Dysthymic disorder F34.1 and Generalized anxiety disorder F41.1 [place] [address] [address] Apr, Kidney disease N28.9 [place] [address] [address] Apr, Generalized anxiety disorder F41.1 and D ysthymic disorder F34.1 [place] [address] [address] Apr, Chronic kidney disease, stage 4 (severe) N18.4 [place] [address] [address] Apr, Generalized anxiety disorder F41.1 ; Fady or depression, recurrent F33.9 and Sleep disturbance G47.9 [place] [address] [address] Mar, Generalized anxiety disorder F41.1 and D ysthymic disorder F34.1 [place] [address] [address] Mar, Generalized anxiety disorder F41.1 ; 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 and Insomnia G47.00 [place] [address] [address] Mar, [place] [address] [address] Mar, [address] [address] Mar, Osteoarthritis of knees, bilateral M17.[address] [address] Mar, Hypertension I10 ; Hypothyroid E03.9 ; D ysthymic disorder F34.1 ; Chronic kidney disease, stage 4 (severe) N18.4 and Nausea & vomiting R11.2 [place] [address] [address] Mar, Generalized anxiety disorder F41.1 ; 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 and Insomnia G47.00 [place] [address] [address] Mar, Dehydration E86.0 ; Chronic kidney disea se, stage 4 (severe) N18.4 and Nausea & vomiting R11.2 [facility] [address] [facility] [id number] [place] [address] Mar, Gastroenteritis K52.9 [place] [address] [address] Mar, [place] [address] [address] Mar, [address] [address] Feb, Dysthymic disorder F34.1 and Generalized anxiety disorder F41.[address] [address] Jan, UTI (urinary tract infection) N39.0 ; As thma J45.909 ; Coronary artery disease involving levelock coronary artery of levelock heart, angina presence unspecified I25.10 ; Hypertension I10 ; Hypothyroid E03.9 ; Vitamin D deficiency E55.9 ; Insomnia G47.00 ; Palpitations R00.2 ; Depressed F32.9 ; Restless leg G25.81 and Anxiety F41.[address] [address] Jan, Dysthymic disorder F34.1 and Generalized anxiety disorder F41.[address] [address] Jan, [address] [address] Dec, [address] [address] Dec, Alkalosis 276.3 ; Chronic kidney disease , Stage IV (severe) 585.4 ; Hyperpotassemia 276.7 ; Secondary hyperparathyroidism, renal 588.81 ; Proteinuria 791.0 ; Unspecified vitamin D deficiency 268.9 ; Anemia in chronic kidney disease 285.21 ; Other and unspecified hyperlipidemia 272.4 ; Hypertension, essential, benign 401.1 and Chronic kidney disease (CKD), stage III (moderate) 585.[address] [address] Dec, [address] [address] Dec, Depressive disorder, not elsewhere class ified 311 and Generalized anxiety disorder 300.02 [facility] [address] [address] Dec, [facility] [address] [address] Dec, [facility] [address] [address] Nov, Depressive disorder, not elsewhere class ified 311 and Generalized anxiety disorder 300.02 [place] [address] [address] Nov, Arthritis of both knees 716.[address] [address] Nov, PAF (paroxysmal atrial fibrillation) 427 .31 ; CAD (coronary artery disease) 414.00 ; Chest pain 786.50 and Chronic kidney disease (CKD) stage G4/A1, severely decreased glomerular filtration rate (GFR) between 15-29 mL/min/1.73 square meter and albuminuria creatinine ratio less than 30 mg/g 585.[address] [address] Oct, Coronary atherosclerosis of unspecified type of vessel, levelock or graft 414.00 ; Chronic kidney disease, Stage IV (severe) 585.4 ; Hypertension 401.9 and Edema 782.[address] [address] Oct, Depressive disorder, not elsewhere class ified 311 and Generalized anxiety disorder 300.02 [facility] [address] [address] Oct, Depressive disorder, not elsewhere class ified 311 and Generalized anxiety disorder 300.02 [place] [address] [address] Oct, [facility] [address] [address] Oct, [facility] [address] [address] Sep, [facility] [address] [address] Sep, Chronic kidney disease, Stage IV (severe ) 585.4 [facility] [address] [address] Sep, [facility] [address] [address] Sep, Coronary atherosclerosis of unspecified type of vessel, levelock or graft 414.00 ; Hypertension 401.9 ; Edema 782.3 and Hypothyroidism 244.9 [facility] [address] [address] Sep, Coronary atherosclerosis of unspecified type of vessel, levelock or graft 414.00 ; Hypertension 401.9 ; Fibromyalgia 729.1 ; Edema 782.3 ; Hypothyroidism 244.9 and Anemia 285.[address] [address] Sep, Anxiety disorder, unspecified 300.00 and Depressive disorder, not elsewhere classified [address] [address] Sep, [facility] [address] [address] August, Generalized anxiety disorder 300.[address] [address] August, Closed fracture of lateral malleolus 824 .2 [facility] [address] [address] Jul, [facility] [address] [address] Jul, [facility] [address] [address] Jun, [facility] [address] [address] Jun, [facility] [address] [address] Jun, [facility] [place] [facility] [address] [facility] [id number] [place] [address] Jun, [facility] [place] [facility] [address] [facility] [id number] [place] [address] Jun, [facility] [place] [facility] [address] [id number] [place] [address] Jun, [facility] [place] [facility] [address] [id number] [place] [address] May, 2014 [facility] [place] [facility] [address] [facility] [id number] [facility] [place] [address] May, 2014 [facility] [place] [facility] [address] [id number] [place] [address] May, 2014 [facility] [place] [facility] [address] [id number] [place] [address] May, 2014 [facility] [place] [facility] [address] [id number] [place] [address] 16 May, 2014 [facility] [place] [facility] [address] [id number] [place] [address] May, 2014 [facility] [place] [facility] [address] [id number] [place] [address] May, 2014 [facility] [place] [facility] [address] [id number] [place] [address] May, 2014 [facility] [place] [facility] [address] [id number] [place] [address] 10 May, 2014 [facility] [place] [facility] [address] [id number] [place] [address] May, [facility] [place] [facility] [address] [id number] [place] [address] Apr, [facility] [place] [facility] [address] [id number] [place] [address] Apr, [facility] [place] [facility] [address] [id number] [place] [address] Mar, [facility] [place] [facility] [address] [id number] [place] [address] Mar, [facility] [place] [facility] [address] [id number] [place] [address] Mar, [facility] [place] [facility] [address] [id number] [place] [address] Mar, [facility] [place] [facility] [address] [id number] [place] [address] Mar, [facility] [place] [facility] [address] [id number] [place] [address] Mar, [facility] [place] [facility] [address] [id number] [place] [address] Mar, [facility] [place] [facility] [address] [id number] [place] [address] Feb, [facility] [place] [facility] [address] [id number] [place] [address] Feb, [facility] [place] [facility] [address] [id number] [place] [address] Feb, [facility] [place] [facility] [address] [id number] [place] [address] Jan, [facility] [place] [facility] [address] [id number] [place] [address] Jan, [facility] [place] [facility] [address] [id number] [place] [address] Jan, [facility] [place] [facility] [address] [id number] [place] [address] 20 Jan, 2014 [facility] [place] [facility] [address] [id number] [place] [address] Jan, [facility] [place] [facility] [address] [id number] [place] [address] 13 Jan, 2014 [facility] [place] [facility] [address] [id number] [place] [address] 13 Jan, 2014 [facility] [place] [facility] [address] [id number] [place] [address] Jan, [facility] [place] [facility] [address] [facility] [id number] [place] [address] Jan, [facility] [place] [facility] [address] [facility] [id number] [facility] [place] [address] Jan, [facility] [place] [facility] [address] [facility] [id number] [place] [address] Nov, [facility] [place] [facility] [address] [facility] [id number] [facility] [address] Nov, [facility] [place] [facility] [address] [facility] [id number] [facility] [place] [address] Nov, [facility] [place] [facility] [address] [facility] [id number] [place] [address] Oct, [facility] [place] [facility] [address] [id number] [place] [address] Oct, [facility] [place] [facility] [address] [id number] [place] [address] Oct, [facility] [place] [facility] [address] [facility] [id number] [place] [address] Oct, [facility] [place] [facility] [address] [id number] [place] [address] Oct, [facility] [place] [facility] [address] [facility] [id number] [place] [address] Oct, [facility] [place] [facility] [address] [id number] [place] [address] Oct, [facility] [place] [facility] [address] [facility] [id number] [place] [address] Oct, [facility] [place] [facility] [address] [facility] [id number] [place] [address] Oct, [facility] [place] [facility] [address] [facility] [id number] [place] [address] Sep, [facility] [place] [facility] [address] [id number] [place] [address] Sep, [facility] [place] [facility] [address] [facility] [id number] [place] [address] Sep, [facility] [place] [facility] [address] [id number] [place] [address] Sep, [facility] [place] [facility] [address] [id number] [place] [address] Sep, [facility] [place] [facility] [address] [id number] [place] [address] Sep, [facility] [place] [facility] [address] [id number] [place] [address] Sep, [facility] [place] [facility] [address] [id number] [place] [address] Sep, [facility] [place] [facility] [address] [id number] [place] [address] Sep, [facility] [place] [facility] [address] [id number] [place] [address] August, [facility] [place] [facility] [address] [id number] [place] [address] August, [facility] [place] [facility] [address] [id number] [place] [address] August, [facility] [place] [facility] [address] [id number] [place] [address] August, [facility] [place] [facility] [address] [id number] [place] [address] August, [facility] [place] [facility] [address] [id number] [place] [address] August, [facility] [place] [facility] [address] [id number] [place] [address] Jul, [facility] [place] [facility] [address] [id number] [place] [address] Jul, [facility] [place] [facility] [address] [id number] [place] [address] Jul, [facility] [place] [facility] [address] [id number] [place] [address] Jul, [facility] [place] [facility] [address] [id number] [place] [address] Jul, [facility] [place] [facility] [address] [id number] [place] [address] Jul, [facility] [place] [facility] [address] [id number] [place] [address] Jun, [facility] [place] [facility] [address] [id number] [place] [address] Jun, [facility] [place] [facility] [address] [id number] [place] [address] May, [facility] [place] [facility] [address] [id number] [place] [address] May, [facility] [place] [facility] [address] [id number] [place] [address] May, [facility] [place] [facility] [address] [id number] [place] [address] May, [facility] [place] [facility] [address] [id number] [place] [address] Apr, [facility] [place] [facility] [address] [id number] [place] [address] Apr, [facility] [place] [facility] [address] [id number] [place] [address] Mar, [facility] [place] [facility] [address] [id number] [place] [address] Mar, [facility] [place] [facility] [address] [id number] [place] [address] Mar, [facility] [place] [facility] [address] [id number] [place] [address] Mar, [facility] [place] [facility] [address] [id number] [place] [address] Mar, [facility] [place] [facility] [address] [id number] [place] [address] 05 Mar, 2013 [facility] [address] [id number] [place] [address] Feb, [facility] [address] [id number] [place] [address] Feb, [facility] [address] [id number] [place] [address] Feb, [facility] [address] [id number] [place] [address] Feb, [facility] [address] [id number] [place] [address] Feb, [facility] [address] [facility] [id number] [place] [address] Feb, [facility] [address] [id number] [place] [address] Jan, [facility] [address] [id number] [place] [address] Jan, [facility] [address] [id number] [place] [address] Jan, [facility] [address] [facility] [id number] [place] [address] Jan, [facility] [address] [facility] [id number] [place] [address] Jan, [facility] [address] [facility] [id number] [place] [address] Jan, [facility] [address] [facility] [id number] [place] [address] Dec, [facility] [address] [facility] [id number] [place] [address] Dec, [facility] [address] [facility] [id number] [place] [address] Nov, [facility] [address] [facility] [id number] [place] [address] Nov, [facility] [address] [facility] [id number] [place] [address] Oct, [facility] [id number] [facility] [place] [address] Oct, [facility] [address] [id number] [facility] [place] [address] Oct, [facility] [address] [facility] [id number] [place] [address] Oct, [facility] [address] [facility] [id number] [place] [address] Oct, [facility] [address] [facility] [id number] [facility] [address] Oct, [facility] [address] [id number] [facility] [place] [address] Sep, [facility] [address] [id number] [place] [address] Sep, [facility] [address] [facility] [id number] [place] [address] Sep, [facility] [address] [facility] [id number] [place] [address] Sep, [facility] [address] [id number] [place] [address] August, [facility] [address] [id number] [place] [address] August, [facility] [address] [facility] [id number] [place] [address] August, [facility] [address] [id number] [place] [address] August, [facility] [address] [facility] [id number] [place], [place] [address] August, [facility] [address] [id number] [place] [address] Jul, [facility] [address] [id number] [place] [address] Jul, [facility] [address] [id number] [place] [address] 15 Jul, 2012 [facility] [address] [id number] [place] [address] Jul, [facility] [address] [id number] [place] [address] Jul, [facility] [address] [id number] [place] [address] Jul, [facility] [address] [id number] [place] [address] Jul, [facility] [address] [id number] [place] [address] Jul, [facility] [address] [id number] [place] [address] Jul, [facility] [address] [id number] [place] [address] Jul, [facility] [address] [id number] Jun, [facility] [address] [id number] [place] [address] Jun, [facility] [address] [id number] [place] [address] Jun, [facility] [address] [id number] [place] [address] Jun, [facility] [address] [id number] [place] [address] Jun, [facility] [address] [id number] [place] [address] May, [facility] [address] [facility] [id number] [place] [address] May, [facility] [address] [id number] [place] [address] May, [facility] [address] [id number] [place] [address] Apr, [facility] [address] [id number] [place] [address] Apr, [facility] [address] [id number] [place] [address] Apr, [facility] [address] [facility] [id number] [place] [address] Apr, [facility] [address] [facility] [id number] [place] [address] Apr, [facility] [address] [facility] [id number] [place] [address] Apr, [facility] [address] [facility] [id number] [place] [address] Mar, [facility] [address] [facility] [id number] [place] [address] Mar, [facility] [address] [facility] [id number] [place] [address] Mar, [facility] [address] [facility] [id number] [place] [address] Mar, [facility] [address] [facility] [id number] [place] [address] Feb, [facility] [address] [facility] [id number] [place] [address] Feb, [facility] [address] [facility] [id number] [place] [address] Feb, [facility] [address] [facility] [id number] [place] [address] Feb, [facility] [address] [facility] [id number] [place] [address] Feb, [facility] [address] [facility] [id number] [place] [address] Feb, [facility] [address] [facility] [id number] [place] [address] Feb, [facility] [address] [facility] [id number] [place] [address] Feb, [facility] [address] [facility] [id number] [place] [address] Feb, [facility] [address] [id number] [place] [address] Feb, [facility] [address] [id number] [place] [address] Feb, [facility] [address] [facility] [id number] [place] [address] Feb, [facility] [address] [id number] [place] [address] Feb, [facility] [address] [facility] [id number] [place] [address] Feb, [facility] [address] [id number] [place] [address] Feb, [facility] [address] [facility] [id number] [place] [address] Feb, [facility] [address] [id number] [place] [address] Jan, [facility] [address] [id number] [place] [address] Jan, [facility] [address] [id number] [place] [address] Jan, [facility] [address] [id number] [place] [address] Jan, [facility] [address] [id number] [place] [address] 30 Jan, 2012 [facility] [address] [facility] [id number] [place] [address] Jan, [facility] [id number] [place] [address] Jan, [facility] [address] [id number] [place] [address] Jan, [facility] [address] [id number] [place] [address] Jan, [facility] [address] [facility] [id number] [place] [address] 15 Jan, 2011 [facility] [address] [id number] [place] [address] 15 Jan, 2011 [facility] [address] [facility] [id number] [place] [address] Jan, [facility] [address] [facility] [id number] [place] [address] 26 Sep, 2011 [facility] [address] [facility] [id number] [place] [address] 26 Sep, 2011 [facility] [address] [facility] [id number] [place] [address] 24 Sep, 2011 [facility] [address] [facility] [id number] [place] [address] 23 Sep, 2011 [facility] [address] [facility] [id number] [place] [address] 22 Sep, 2011 [facility] [address] [facility] [id number] [place] [address] 21 Sep, 2011 [facility] [address] [facility] [id number] [place] [address] 20 Sep, 2011 [facility] [address] [facility] [id number] [place] [address] 20 Sep, 2011 [facility] [address] [facility] [id number] [place] [address] 07 Sep, 2011 [facility] [address] [facility] [id number] [place] [address] 06 Sep, 2011 [facility] [address] [facility] [id number] [place] [address] 06 Sep, 2011 [facility] [address] [facility] [id number] [place] [address] 05 Sep, 2011 [facility] [address] [facility] [id number] [place] [address] 23 Nov, 2011 [facility] [address] [id number] [place] [address] Nov, [facility] [address] [facility] [id number] [facility] [place] [address] Nov, [facility] [address] [facility] [id number] [facility] [address] Nov, [facility] [address] [facility] [id number] [facility] [address] Nov, [facility] [address] [id number] [facility] [address] Nov, [facility] [address] [facility] [id number] [facility] [place] [address] Nov, [facility] [address] [id number] [facility] [place] [address] Nov, [facility] [address] [id number] [facility] [place] [address] Oct, [facility] [address] [id number] [facility] [place] [address] Oct, [facility] [address] [id number] [facility] [place] [address] Oct, [facility] [address] [id number] [facility] [place] [address] Oct, [facility] [address] [id number] [place] [address] Oct, [facility] [address] [id number] [place] [address] Oct, [facility] [address] [id number] [facility] [place] [address] Oct, [facility] [address] [id number] [place] [address] Sep, [facility] [address] [id number] [place] [address] Sep, [facility] [address] [id number] [place] [address] August, [facility] [address] [id number] [place] [address] August, [facility] [address] [id number] [place] [address] August, [facility] [address] [id number] [place] [address] August, [facility] [address] [id number] [place] [address] Jul, [facility] [address] [id number] [place] [address] Jul, [facility] [address] [id number] [place] [address] Jul, [facility] [address] [id number] [place] [address] Jul, [facility] [address] [id number] [place] [address] Jul, [facility] [address] [id number] [place] [address] Jul, [facility] [address] [id number] [place] [address] Jul, [facility] [address] [id number] [place] [address] Jul, [facility] [address] [id number] [place] [address] Jul, [facility] [address] [id number] [place] [address] 23 Jun, 2011 [facility] [address] [id number] [place] [address] 19 Jun, 2011 [facility] [address] [id number] [place] [address] 15 Jun, 2011 [facility] [address] [id number] [place] [address] 14 Jun, 2011 [facility] [address] [id number] [place] [address] 12 Jun, 2011 [facility] [address] [id number] [place] [address] Jun, [facility] [address] [id number] [place] [address] Jun, [facility] [address] [id number] [place] [address] May, [facility] [address] [id number] [place] [address] May, [facility] [address] [id number] [place] [address] May, [facility] [address] [id number] [place] [address] May, [facility] [address] [id number] [place] [address] May, [facility] [address] [id number] [place] [address] Apr, [facility] [address] [id number] [place] [address] Apr, [facility] [address] [id number] [place] [address] Apr, [facility] [address] [id number] [place] [address] Apr, [facility] [address] [id number] [place] [address] Apr, [facility] [address] [id number] [place] [address] Mar, [facility] [address] [id number] [place] [address] Mar, [facility] [address] [id number] [place] [address] Mar, [facility] [address] [id number] [place] [address] Mar, [facility] [address] [id number] [place] [address] 08 Mar, 2011 [facility] [address] [id number] [place] [address] Mar, [facility] [address] [id number] [place] [address] Mar, [facility] [address] [id number] [place] [address] Feb, [facility] [address] [id number] [place] [address] Feb, [facility] [address] [id number] [place] [address] Feb, [facility] [address] [id number] [place] [address] Feb, [facility] [address] [id number] [place] [address] Jan, [facility] [address] [id number] [place] [address] Jan, [facility] [address] [id number] [place] [address] Jan, [facility] [address] [id number] [place] [address] Jan, [facility] [address] [id number] [place] [address] Nov, [facility] [address] [id number] [place] [address] Mar, [facility] [address] [id number] [place] [address] Mar, [facility] [address] [id number] [place] [address] Mar, [facility] [address] [id number] [place] [address] Mar, [facility] [address] [id number] [place] [address] Mar, [facility] [address] [id number] [place] [address] Mar, [facility] [address] [address] Feb, [facility] [id number] [place] [address] Feb, [facility] [address] [address] Jan, [facility] [id number] [place] [address] Jan, [facility] [address] [address] Jan, IMMUNIZATIONS No Known Immunizations SOCIAL HISTORY [...] History CPAP Noncompliance_ Dr. Madden advises a [employer] driving. Medical History Bacterial meningitis 12/2016 Medical [...] 09-2015 & 2007 Surgical History Bladder surgery [facility] 03/2016 Surgical History Neurotransmitter placed 10/2017 Surgical History retninal repair 12/31/2017 Surgical History cataract surgery 2018 Surgical History cataract surgery 2018 Surgical History SCS trial x7 days 2018 Surgical History SCS implant removed. 2019 Surgical History right shoulder surgery to repair torn te ndons 02/2019 Hospitalization History Surgeries Only Hospitalization History bacterial meningitis December 2016 Hospitalization History [facility] psych for SI 1988 Hospitalization History [facility]-Altered mental status 05/2017 Hospitalization History sepsis, UTI, headache 08/03/2018-
--- OUTSIDE RECORDS SUMMARY | 2019-08-01 10:07 | XMS REPORT ---
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3 Active 073770193 Problem Body mass index (BMI) of 40.0-44.9 in adult Z68.41 Active 713507780 Problem Seasonal allergic rhinitis due to pollen J30.1 Active 50384228 Problem Atherosclerosis of nondalton co ronary artery of nondalton heart with angina pectoris I25.119 Active 3885485187687 Problem Primary osteoarthritis of left knee M17.12 Active 675106962 Problem Hypercholesterolemia E78.00 Active 41845955 Problem Essential (primary) hypertension I10 Active 66416595 Problem Restless leg syndrome G25.81 Active 87964151 Problem Chronic pain syndrome G89.4 Active 995579366 Problem Perimenopausal vasomotor symptoms N95.1 Active 972885622 Problem Major depressive disorder, recurrent, moderate F33 .1 Active 623191498 ALLERGIES No Information ENCOUNTERS Encounter Location Date Diagnosis [facility] [id number] [place] [address] Apr, [facility] [address] [address] Apr, [facility] [id number] [place] [address] Apr, Chronic pain syndrome G89.4 [place] [address] [address] Apr, Acute pain of right knee M25.561 [place] [address] [address] Apr, [place] [address] [address] Mar, Major depressive disorder, recurrent, mo derate F33.1 ; Generalized anxiety disorder F41.1 and Dysthymic disorder F34.1 [facility] [address] [facility] [id number] [address] [place] [address] Mar, Fluid collection of middle e ar H65.90 and Dizziness R42 [place] [address] [address] Mar, [place] [address] [address] Mar, [place] [address] [address] Mar, Essential (primary) hypertension I10 ; S tage 3 chronic kidney disease N18.3 ; Hypercholesterolemia E78.00 ; Asthma J45.909 ; Recurrent UTI N39.0 ; Status post shoulder surgery Z98.890 and Encounter for immunization Z23 [place] [address] [address] Mar, Chronic pain syndrome G89.4 [place] [address] [address] Feb, [place] [address] [address] Feb, [place] [address] [address] Feb, Oral thrush B37.0 and Sore throat J02.9 [place] [address] [address] Feb, Chronic pain syndrome G89.4 [place] [address] [address] Jan, [place] [address] [address] 14 Jan, 2019 Chronic pain syndrome G89.4 [place] [address] [address] 02 Jan, 2019 Hypercholesterolemia E78.00 [place] [address] [address] Jan, [place] [address] [address] Dec, Chronic kidney disease, stage 4 (severe) N18.4 [place] [address] [address] Dec, Major depressive disorder, recurrent, mo derate F33.1 ; Generalized anxiety disorder F41.1 and Dysthymic disorder F34.1 [place] [address] [address] Dec, Generalized anxiety disorder F41.1 and M shiraor depressive disorder, recurrent episode with anxious distress F33.9 [place] [address] [address] Dec, [place] [address] [address] Dec, [place] [address] [address] Dec, Encounter for immunization Z23 [place] [address] [address] Dec, Diarrhea, unspecified type R19.7 and Hem orrhoids, unspecified hemorrhoid type K64.9 [place] [address] [address] Dec, Encounter for Medicare annual wellness e xam Z00.00 ; Chronic kidney disease, stage 4 (severe) N18.4 ; Encounter for immunization Z23 ; Major depressive disorder, recurrent, moderate F33.1 ; Atherosclerosis of nondalton coronary artery of nondalton heart with angina pectoris I25.119 ; Asthma J45.909 ; Hypothyroid E03.9 and Fibromyalgia M79.7 [place] [address] [address] Dec, Chronic pain syndrome G89.4 [place] [address] [address] Nov, Major depressive disorder, recurrent, mo derate F33.1 ; Generalized anxiety disorder F41.1 and Dysthymic disorder F34.1 [address] [address] [address] Nov, [place] [address] [address] Nov, Chronic pain syndrome G89.4 [address] [address] [address] Nov, Restless leg syndrome G25.81 [place] [address] [address] Nov, Pain in right shoulder M25.511 ; Restles s leg syndrome G25.81 ; Other chronic pain G89.29 ; Screening for breast cancer Z12.39 ; Insomnia G47.00 and Morbid obesity E66.01 [place] [address] [address] Nov, [address] [address] [address] Oct, Major depressive disorder, recurrent, mo derate F33.1 ; Generalized anxiety disorder F41.1 and Dysthymic disorder F34.1 [place] [address] [address] Oct, [place] [address] [address] Oct, Cellulitis of left lower extremity L03.1 16 and Morbid obesity E66.01 [facility] [address] [facility] [id number] [place] [address] Oct, [facility] [address] [address] Oct, [facility] [address] [address] Oct, Generalized anxiety disorder F41.1 and M zion depressive disorder, recurrent episode with anxious distress F33.9 [facility] [address] [id number] [place] [address] 15 Oct, 2018 [facility] [address] [address] Oct, Chronic pain syndrome G89.4 [facility] [address] [address] Oct, Chronic pain syndrome G89.4 [facility] [id number] [place] [address] Oct, UTI symptoms R39.9 ; Acute c ystitis without hematuria N30.00 and Morbid obesity E66.01 [facility] [address] [address] Oct, [facility] [address] [address] Oct, Chronic pain syndrome G89.4 [place] [address] [address] Sep, [place] [address] [address] Sep, Generalized anxiety disorder F41.1 and M zion depressive disorder, recurrent episode with anxious distress F33.9 [address] [address] [address] 17 Sep, 2018 Chronic kidney disease, stage 4 (severe) N18.4 [address] [address] [address] Sep, Fibromyalgia M79.7 and Chronic pain synd lisseth G89.4 [facility] [id number] [place] [address] Sep, [facility] [address] [place] [address] Sep, Chronic pain syndrome G89.4 [facility] [id number] [place] [address] Sep, [facility] [address] [address] Sep, Chronic pain syndrome G89.4 ; Fibromyalg ia M79.7 and Morbid obesity E66.01 [facility] [id number] [place] [address] August, Generalized anxiety disorder F41.1 and M ajor depressive disorder, recurrent episode with anxious distress F33.9 [place] [id number] [place] [address] August, Fibromyalgia M79.7 [facility] [id number] [place] [address] August, Restless leg syndrome G25.81 ; Vitamin D deficiency E55.9 ; Urinary tract infection without hematuria, site unspecified N39.0 ; Pain in right shoulder M25.511 ; Other chronic pain G89.29 ; Biceps tendinitis on right M75.21 and Morbid obesity E66.01 [facility] [address] [place] [address] Jul, Urinary tract infection without hematuri a, site unspecified N39.0 and Morbid obesity E66.01 [facility] [id number] [place] [address] Jul, [facility] [address] [address] Jul, [facility] [address] [place] [address] Jul, Fibromyalgia M79.7 [facility] [address] [address] Jul, Acute pain of right shoulder M25.511 [address] [address] [address] Jul, Acute pain of right shoulder M25.511 and Morbid obesity E66.01 [address] [address] [address] Jun, [address] [address] [address] Jun, Generalized anxiety disorder F41.1 and M zion depressive disorder, recurrent episode with anxious distress F33.9 [address] [address] [address] Jun, [address] [address] Jun, Fibromyalgia M79.7 [facility] [address] [facility] [id number] [address] [address] Jun, Acute pain of right shoulder M25.511 ; Acute pain of right hip M25.551 and Morbid obesity E66.01 [address] [place] [address] May, Burning with urination R30.0 ; Vaginal d ischarge N89.8 ; Chronic kidney disease, stage 4 (severe) N18.4 ; Body mass index (BMI) of 40.0-44.9 in adult Z68.41 and Morbid obesity E66.01 [address] [place] [address] 07 May, 2018 Fibromyalgia M79.7 [address] [address] May, Generalized anxiety disorder F41.1 and M zion depressive disorder, recurrent episode with anxious distress F33.9 [address] [place] [address] Apr, [address] [address] [address] 08 Apr, 2018 Fibromyalgia M79.7 [facility] [id number] [place] [address] 14 Mar, 2018 Acute UTI N39.0 and Dysuria R30.0 [facility] [address] [address] Mar, Fibromyalgia M79.7 [facility] [address] [address] Feb, [facility] [address] [address] Feb, [address] [place] [address] Feb, [address] [place] [address] Feb, Fibromyalgia M79.7 [address] [place] [address] 08 Feb, 2018 Complicated UTI (urinary tract infection ) N39.0 [address] [place] [address] Feb, [facility] [address] [address] Jan, Generalized anxiety disorder F41.1 and M zion depressive disorder, recurrent episode with anxious distress F33.9 [facility] [address] [facility] [id number] [address] [place] [address] Jan, Acute conjunctivitis of left eye, unspecified acute conjunctivitis type H10.32 [facility] [address] [address] Jan, [address] [place] [address] Jan, Acute non-recurrent maxillary sinusitis J01.00 ; Dysuria R30.0 ; Perimenopausal vasomotor symptoms N95.1 and Fibromyalgia M79.7 [facility] [address] [address] 28 Dec, 2017 Vitamin D deficiency E55.9 [facility] [address] [address] Dec, Vitamin D deficiency E55.9 [facility] [address] [address] 24 Dec, 2017 Vitamin D deficiency E55.9 [facility] [address] [address] Dec, [facility] [address] [address] Dec, Fibromyalgia M79.7 [address] [address] Nov, [address] [place] [address] Nov, [facility] [address] [address] Nov, [facility] [address] [address] Nov, Fibromyalgia M79.7 ; Vision changes H53. 9 ; Chest wall pain R07.89 and Chronic pain syndrome G89.4 [address] [place] [address] Nov, [facility] [address] [address] Nov, Rash of hands R21 [address] [place] [address] Nov, Generalized anxiety disorder F41.1 and M shiraor depressive disorder, recurrent episode with anxious distress F33.9 [address] [place] [address] Nov, Fibromyalgia M79.7 [facility] [address] [address] Nov, Complicated UTI (urinary tract infection ) N39.0 [address] [place] [address] Oct, [facility] [address] [address] Oct, Generalized anxiety disorder F41.1 and Tae donovan depressive disorder, recurrent episode with anxious distress F33.9 [address] [address] Oct, [address] [address] Oct, Fibromyalgia M79.7 [address] [place] [address] Sep, Restless leg syndrome G25.81 and Restles s leg G25.81 [address] [address] Sep, [address] [address] Sep, Seasonal allergic rhinitis due to pollen J30.1 ; Screening for breast cancer Z12.31 ; Chest pain at rest R07.9 ; Restless leg syndrome G25.81 ; Essential (primary) hypertension I10 and Depressed F32.9 [address] [address] August, Fibromyalgia M79.7 [address] [address] August, [address] [address] August, [address] [address] August, Abnormal chest CT R93.8 [address] [address] August, Generalized anxiety disorder F41.1 and Tae donovan depressive disorder, recurrent episode with anxious distress F33.9 [address] [address] August, Abnormal chest CT R93.8 [address] [address] Jul, [address] [place] [address] Jul, Chronic kidney disease, stage 4 (severe) N18.4 [address] [address] Jul, [address] [address] Jul, Restless leg G25.81 ; Mixed stress and u rge urinary incontinence N39.46 and Fibromyalgia M79.7 [address] [address] Jul, Chronic kidney disease, stage 4 (severe) N18.4 [address] [address] Jun, Orthostatic hypotension I95.1 ; Chronic kidney disease, stage 4 (severe) N18.4 ; Chest wall discomfort R07.89 and Body mass index (BMI) of 40.0- 44.9 in adult Z68.41 [address] [place] [address] Jun, [address] [place] [address] Jun, Orthostatic hypotension I95.1 [address] [place] [address] Jun, [facility] [address] [facility] [id number] [address] [place] [address] Jun, Orthostatic hypotension I95. 1 ; Dysuria R30.0 and Acute cystitis without hematuria N30.00 [address] [place] [address] Jun, [facility] [address] [address] Jun, Chronic kidney disease, stage 4 (severe) N18.4 [facility] [address] [address] Jun, Fibromyalgia M79.7 [facility] [address] [address] Jun, [facility] [address] [address] Jun, [facility] [address] [address] May, Abnormal chest [address] R93.8 and Stage 3 bridge attacher yanci kidney disease N18.3 [facility] [address] [address] May, Chronic kidney disease, stage 4 (severe) N18.4 [facility] [address] [address] May, Chronic kidney disease, stage 4 (severe) N18.4 [facility] [address] [address] May, Abnormal chest [address] R93.8 [facility] [address] [address] May, [facility] [address] [address] May, [facility] [address] [address] May, Generalized anxiety disorder F41.1 and Tae donovan depressive disorder, recurrent episode with anxious distress F33.9 [facility] [address] [address] May, Mood disorder F39 [facility] [address] [address] Apr, [facility] [address] [place] [address] Apr, Infected skin lesion L08.[address] rain of right shoulder region, initial encounter S46.911A [facility] [id number] [place] [address] Apr, Generalized anxiety disorder F41.1 and Tae donovan depressive disorder, recurrent episode with anxious distress F33.9 [facility] [address] [place] [address] Apr, [address] [place] [address] Apr, Recent urinary tract infection Z87.440 a nd Hypothyroid E03.9 [facility] [address] [address] Apr, Generalized anxiety disorder F41.1 and Tae donovan depressive disorder, recurrent episode with anxious distress F33.9 [facility] [id number] [place] [address] Apr, Recent urinary tract infection Z87.440 [facility] [address] [address] Mar, [facility] [address] [facility] [id number] [address] [place] [address] Mar, Dysuria R30.0 ; Acute cystit is without hematuria N30.00 and BMI 40.0-44.9, adult Z68.41 [facility] [id number] [place] [address] Mar, [facility] [address] [address] Mar, [facility] [address] [address] Mar, Generalized anxiety disorder F41.1 and Tae donovan depressive disorder, recurrent episode with anxious distress F33.9 [address] [address] [address] Feb, Conjunctivitis, bacterial H10.9 [address] [place] [address] [address] Feb, [facility] [address] [facility] [id number] [address] [place] [address] Feb, Conjunctivitis, bacterial H1 0.9 [address] [address] [address] Feb, [facility] [address] [facility] [id number] [address] [place] [address] Feb, Dysuria R30.0 ; Acute cystit is N30.00 and BMI 40.0-44.9, adult Z68.41 [address] [address] [address] Feb, [place] [address] [address] Feb, Generalized anxiety disorder F41.1 and M ajor depressive disorder, recurrent episode with anxious distress F33.9 [place] [address] [address] Feb, Mood disorder F39 and BMI 40.0-44.9, feli lt Z68.41 [place] [address] [address] Jan, [place] [address] [address] Jan, [place] [address] [address] Jan, Hypothyroid E03.9 [place] [address] [address] Jan, [place] [address] [address] Jan, Chronic kidney disease, unspecified N18. 9 ; Hypokalemia E87.6 ; Essential (primary) hypertension I10 ; Fibromyalgia M79.7 ; Coronary artery disease involving nondalton coronary artery of nondalton heart, angina presence unspecified I25.10 ; Hypothyroid E03.9 and Encounter for immunization Z23 [place] [address] [address] 04 Jan, 2017 Hypothyroid E03.9 [place] [address] [address] Jan, [place] [address] [address] Dec, Vitamin D deficiency E55.9 [place] [address] [address] Dec, Primary osteoarthritis of left knee M17. 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 [place] [address] [address] 19 Dec, 2016 Fibromyalgia M79.7 [place] [address] [address] 18 Dec, 2016 Mood disorder F39 [place] [address] [address] 13 Dec, 2016 [place] [address] [address] 13 Dec, 2016 Generalized anxiety disorder F41.1 and M shiraor depressive disorder, recurrent episode with anxious distress F33.9 [place] [address] [address] 11 Dec, 2016 [place] [address] [address] 08 Dec, 2016 Streptococcal meningitis G00.2 [place] [address] [address] 07 Dec, 2016 Streptococcal meningitis G00.2 [place] [address] [address] 07 Dec, 2016 [place] [id number] [place] [address] 06 Dec, 2016 Streptococcal meningitis G00.2 [facility] [address] [address] Dec, [facility] [address] [address] Dec, Major depressive disorder, recurrent epi sode with anxious distress F33.9 [facility] [address] [address] Nov, Fever, unspecified fever cause R50.9 [facility] [address] [address] Nov, [facility] [address] [address] Nov, Hypothyroid E03.9 [facility] [address] [address] Nov, Generalized anxiety disorder F41.1 and M shiraor depressive disorder, recurrent episode with anxious distress F33.9 [facility] [address] [place] [address] Nov, [facility] [id number] [place] [id number] Oct, Dental examination Z01.20 [place] [address] [address] Oct, Generalized anxiety disorder F41.1 and M ajor depressive disorder, recurrent episode with anxious distress F33.9 [facility] [address] [place] [address] Oct, Chronic kidney disease, stage 4 (severe) N18.4 [facility] [address] [address] Oct, [facility] [address] [address] Oct, Fibromyalgia M79.7 [facility] [address] [address] Oct, [place] [address] [address] Oct, Generalized anxiety disorder F41.1 ; Fady or depressive disorder, recurrent episode with anxious distress F33.9 and Bipolar disorder, current episode manic without psychotic features F31.10 [place] [address] [address] Sep, [place] [address] [address] Sep, [address] [address] Sep, Vitamin D deficiency E55.9 [place] [address] [address] 14 Sep, 2016 Vitamin D deficiency E55.9 [place] [address] [address] Sep, [place] [address] [address] Sep, Chronic kidney disease, stage 4 (severe) N18.4 ; Hypothyroid E03.9 ; Restless leg G25.81 ; Fibromyalgia M79.7 ; Essential (primary) hypertension I10 ; Vitamin D deficiency E55.9 ; Dyspepsia R10.13 ; Anemia in chronic kidney disease D63.1 ; Chronic kidney disease, unspecified N18.9 ; Coronary artery disease involving nondalton coronary artery of nondalton heart, angina presence unspecified I25.10 ; Screening breast examination Z12.39 and Low back pain M54.5 [place] [address] [address] August, Generalized anxiety disorder F41.1 and Tae donovan depressive disorder, recurrent episode with anxious distress F33.9 [place] [address] [address] August, Generalized anxiety disorder F41.1 and Tae donovan depressive disorder, recurrent episode with anxious distress F33.9 [place] [address] [address] August, Fibromyalgia M79.7 [place] [address] [address] Jul, Generalized anxiety disorder F41.1 and Tae donovan depressive disorder, recurrent episode with anxious distress F33.9 [place] [address] [address] Jul, Fibromyalgia M79.7 [place] [address] [address] Jul, Generalized anxiety disorder F41.1 [place] [address] [address] May, [place] [address] [address] May, Hypothyroid E03.9 [place] [address] [address] May, Chronic kidney disease, stage 4 (severe) N18.4 ; Hypothyroid E03.9 ; Restless leg G25.81 ; Fibromyalgia M79.7 ; Essential (primary) hypertension I10 ; Vitamin D deficiency E55.9 ; Dyspepsia R10.13 ; Acute non-recurrent maxillary sinusitis J01.00 ; Anemia in chronic kidney disease D63.1 ; Chronic kidney disease, unspecified N18.9 and Coronary artery disease involving nondalton coronary artery of nondalton heart, angina presence unspecified I25.10 [place] [address] [address] May, Vitamin D deficiency, unspecified E55.[address] [address] May, Generalized anxiety disorder F41.1 and Tae donovan depressive disorder, recurrent episode with anxious distress F33.9 [place] [address] [address] 09 Luis, 2017 Pain in right knee M25.561 and Pain in l eft knee M25.562 [facility] [address] [address] Apr, [place] [address] [address] Apr, [place] [address] [address] Apr, [place] [address] [address] Mar, Generalized anxiety disorder F41.1 and M zion depressive disorder, recurrent episode with anxious distress F33.9 [place] [address] [address] Mar, Generalized anxiety disorder F41.1 and M zion depressive disorder, recurrent episode with anxious distress F33.9 [place] [address] [address] Mar, [place] [address] [address] Mar, [place] [address] [address] Mar, [place] [address] [address] Mar, Asthma J45.909 and Fibromyalgia M79.7 [place] [address] [address] Mar, Chronic kidney disease, stage 4 (severe) N18.4 ; Vitamin D deficiency E55.9 and Essential (primary) hypertension I10 [place] [address] [address] Feb, [place] [address] [address] Feb, Dysuria R30.0 ; Mixed stress and urge ur inary incontinence N39.46 ; Fibromyalgia M79.7 and Chronic kidney disease, stage IV (severe) N18.4 [place] [address] [address] Feb, Chronic kidney disease, stage 4 (severe) N18.4 [facility] [address] [address] Feb, Chronic kidney disease, stage 4 (severe) N18.4 [place] [address] [address] Feb, [facility] [address] [address] Feb, Vitamin D deficiency, unspecified E55.9 [place] [address] [address] Jan, [place] [address] [address] Jan, [place] [address] [address] 30 Dec, 2015 [place] [address] [address] Dec, Chronic kidney disease, stage 4 (severe) N18.4 [place] [address] [address] Dec, Dysthymic disorder F34.1 and Generalized anxiety disorder F41.1 [place] [address] [address] 27 Dec, 2015 [place] [address] [address] Dec, [place] [address] [address] 08 Dec, 2015 Dysthymic disorder F34.1 and Generalized anxiety disorder F41.1 [place] [address] [address] 08 Dec, 2015 Dysuria R30.0 ; Chronic kidney disease, stage 4 (severe) N18.4 ; Hypertension I10 ; Dyspepsia R10.13 ; Yeast dermatitis B37.2 ; Palpitations R00.2 ; Hypothyroid E03.9 ; Functional diarrhea K59.1 and Other seasonal allergic rhinitis J30.2 [facility] [address] [place] [address] Dec, [facility] [address] [place] [id number] [address] [address] Nov, Dysuria R30.0 and Stress inc ontinence N39.3 [place] [address] [address] Nov, [place] [address] [address] Nov, [place] [address] [address] Nov, Osteoarthritis of knees, bilateral M17.0 [place] [address] [address] Nov, Dysthymic disorder F34.1 and Generalized anxiety disorder F41.1 [place] [address] [address] Nov, [place] [address] [address] Nov, [place] [address] [address] Nov, Urgency of urination R39.15 [place] [address] [address] Nov, [place] [address] [address] Nov, Chronic kidney disease, stage 4 (severe) N18.4 [place] [address] [address] Oct, Hypertension I10 ; Coronary artery disea se involving nondalton coronary artery of nondalton heart, angina presence unspecified I25.10 ; Palpitations R00.2 ; Hypothyroid E03.9 ; Right foot pain M79.671 ; Functional diarrhea K59.1 and Other seasonal allergic rhinitis J30.2 [place] [address] [address] Oct, Dysthymic disorder F34.1 and Generalized anxiety disorder F41.1 [place] [address] [address] Sep, [place] [address] [address] Sep, [place] [address] [address] Sep, [place] [address] [address] Sep, [place] [address] [address] Sep, [place] [address] [address] Sep, Dysthymic disorder F34.1 and Generalized anxiety disorder F41.1 [place] [address] [address] 16 Sep, 2015 Asthma with acute exacerbation in adult J45.901 ; Dysuria R30.0 ; Chronic kidney disease, stage 4 (severe) N18.4 and History of anemia Z86.2 [place] [address] [address] Sep, Generalized anxiety disorder F41.1 and D ysthymic disorder F34.1 [place] [address] [address] August, Screening breast examination Z12.39 and Acute recurrent maxillary sinusitis J01.[address] [address] August, Osteoarthritis of knees, bilateral M17.[address] [address] August, Chronic kidney disease, stage 4 (severe) N18.4 ; Acute non-recurrent maxillary sinusitis J01.00 ; Urinary problem R39.89 ; Bowel habit changes R19.4 ; Functional diarrhea K59.1 and History of colon polyps Z86.010 [place] [address] [address] 29 Jul, 2015 Dysthymic disorder F34.1 and Generalized anxiety disorder F41.1 [place] [address] [address] Jul, [place] [address] [address] Jul, Dysthymic disorder F34.1 ; Generalized a nxiety disorder F41.1 and terminal gauger use of drug Z79.899 [place] [address] [address] Jul, [place] [address] [address] Jun, [place] [address] [address] Jun, [place] [address] [address] May, [place] [address] [address] May, Dysthymic disorder F34.1 and Generalized anxiety disorder F41.1 [place] [address] [address] Apr, Kidney disease N28.9 [place] [address] [address] Apr, Generalized anxiety disorder F41.1 and D ysthymic disorder F34.1 [place] [address] [address] Apr, Chronic kidney disease, stage 4 (severe) N18.4 [place] [address] [address] Apr, Generalized anxiety disorder F41.1 ; Fady or depression, recurrent F33.9 and Sleep disturbance G47.9 [place] [address] [address] Mar, Generalized anxiety disorder F41.1 and D ysthymic disorder F34.1 [place] [address] [address] Mar, Generalized anxiety disorder F41.1 ; 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 and Insomnia G47.00 [place] [address] [address] Mar, [place] [address] [address] Mar, [address] [address] Mar, Osteoarthritis of knees, bilateral M17.[address] [address] Mar, Hypertension I10 ; Hypothyroid E03.9 ; D ysthymic disorder F34.1 ; Chronic kidney disease, stage 4 (severe) N18.4 and Nausea & vomiting R11.2 [place] [address] [address] Mar, Generalized anxiety disorder F41.1 ; 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 and Insomnia G47.00 [place] [address] [address] Mar, Dehydration E86.0 ; Chronic kidney disea se, stage 4 (severe) N18.4 and Nausea & vomiting R11.2 [facility] [address] [facility] [id number] [address] [place] [address] Mar, Gastroenteritis K52.9 [place] [address] [address] Mar, [place] [address] [address] Mar, [address] [address] Feb, Dysthymic disorder F34.1 and Generalized anxiety disorder F41.[address] [address] Jan, UTI (urinary tract infection) N39.0 ; As thma J45.909 ; Coronary artery disease involving nondalton coronary artery of nondalton heart, angina presence unspecified I25.10 ; Hypertension I10 ; Hypothyroid E03.9 ; Vitamin D deficiency E55.9 ; Insomnia G47.00 ; Palpitations R00.2 ; Depressed F32.9 ; Restless leg G25.81 and Anxiety F41.[address] [address] Jan, Dysthymic disorder F34.1 and Generalized anxiety disorder F41.[address] [address] Jan, [address] [address] Dec, [address] [address] Dec, Alkalosis 276.3 ; Chronic kidney disease , Stage IV (severe) 585.4 ; Hyperpotassemia 276.7 ; Secondary hyperparathyroidism, renal 588.81 ; Proteinuria 791.0 ; Unspecified vitamin D deficiency 268.9 ; Anemia in chronic kidney disease 285.21 ; Other and unspecified hyperlipidemia 272.4 ; Hypertension, essential, benign 401.1 and Chronic kidney disease (CKD), stage III (moderate) 585.[address] [address] Dec, [address] [address] Dec, Depressive disorder, not elsewhere class ified 311 and Generalized anxiety disorder 300.02 [facility] [address] [address] Dec, [facility] [address] [address] Dec, [facility] [address] [address] Nov, Depressive disorder, not elsewhere class ified 311 and Generalized anxiety disorder 300.02 [place] [address] [address] Nov, Arthritis of both knees 716.[address] [address] Nov, PAF (paroxysmal atrial fibrillation) 427 .31 ; CAD (coronary artery disease) 414.00 ; Chest pain 786.50 and Chronic kidney disease (CKD) stage G4/A1, severely decreased glomerular filtration rate (GFR) between 15-29 mL/min/1.73 square meter and albuminuria creatinine ratio less than 30 mg/g 585.[address] [address] Oct, Coronary atherosclerosis of unspecified type of vessel, nondalton or graft 414.00 ; Chronic kidney disease, Stage IV (severe) 585.4 ; Hypertension 401.9 and Edema 782.[address] [address] Oct, Depressive disorder, not elsewhere class ified 311 and Generalized anxiety disorder 300.02 [facility] [address] [address] Oct, Depressive disorder, not elsewhere class ified 311 and Generalized anxiety disorder 300.02 [place] [address] [address] Oct, [facility] [address] [address] Oct, [facility] [address] [address] Sep, [facility] [address] [address] Sep, Chronic kidney disease, Stage IV (severe ) 585.4 [facility] [address] [address] Sep, [facility] [address] [address] Sep, Coronary atherosclerosis of unspecified type of vessel, nondalton or graft 414.00 ; Hypertension 401.9 ; Edema 782.3 and Hypothyroidism 244.9 [facility] [address] [address] Sep, Coronary atherosclerosis of unspecified type of vessel, nondalton or graft 414.00 ; Hypertension 401.9 ; Fibromyalgia 729.1 ; Edema 782.3 ; Hypothyroidism 244.9 and Anemia 285.[address] [address] Sep, Anxiety disorder, unspecified 300.00 and Depressive disorder, not elsewhere classified [address] [address] Sep, [facility] [address] [place] [address] August, Generalized anxiety disorder 300.[address] [address] August, Closed fracture of lateral malleolus 824 .2 [facility] [address] [address] Jul, [facility] [address] [address] Jul, [facility] [address] [address] Jun, [facility] [address] [place] [address] Jun, [facility] [address] [address] Jun, [facility] [place] [facility] [address] [facility] [id number] [place] [address] Jun, [facility] [place] [facility] [address] [facility] [id number] [place] [address] Jun, [facility] [place] [facility] [address] [id number] [place] [address] Jun, [facility] [place] [facility] [address] [id number] [place] [address] May, 2014 [facility] [place] [facility] [address] [facility] [id number] [place] [address] May, 2014 [facility] [place] [facility] [address] [id number] [place] [address] May, 2014 [facility] [place] [facility] [address] [id number] [place] [address] May, 2014 [facility] [place] [facility] [address] [id number] [place] [address] 16 May, 2014 [facility] [place] [facility] [address] [id number] [place] [address] May, 2014 [facility] [place] [facility] [address] [id number] [place] [address] May, 2014 [facility] [place] [facility] [address] [id number] [place] [address] May, 2014 [facility] [place] [facility] [address] [id number] [place] [address] 10 May, 2014 [facility] [place] [facility] [address] [id number] [place] [address] May, [facility] [place] [facility] [address] [id number] [place] [address] Apr, [facility] [place] [facility] [address] [id number] [place] [address] Apr, [facility] [place] [facility] [address] [id number] [place] [address] Mar, [facility] [place] [facility] [address] [id number] [place] [address] Mar, [facility] [place] [facility] [address] [id number] [place] [address] Mar, [facility] [place] [facility] [address] [id number] [place] [address] Mar, [facility] [place] [facility] [address] [id number] [place] [address] Mar, [facility] [place] [facility] [address] [id number] [place] [address] Mar, [facility] [place] [facility] [address] [id number] [place] [address] Mar, [facility] [place] [facility] [address] [id number] [place] [address] Feb, [facility] [place] [facility] [address] [id number] [place] [address] Feb, [facility] [place] [facility] [address] [id number] [place] [address] Feb, [facility] [place] [facility] [address] [id number] [place] [address] Jan, [facility] [place] [facility] [address] [id number] [place] [address] Jan, [facility] [place] [facility] [address] [id number] [place] [address] Jan, [facility] [place] [facility] [address] [id number] [place] [address] 20 Jan, 2014 [facility] [place] [facility] [address] [id number] [place] [address] Jan, [facility] [place] [facility] [address] [id number] [place] [address] 13 Jan, 2014 [facility] [place] [facility] [address] [id number] [place] [address] 13 Jan, 2014 [facility] [place] [facility] [address] [id number] [place] [address] Jan, [facility] [place] [facility] [address] [facility] [id number] [place] [address] Jan, [facility] [place] [facility] [address] [facility] [id number] [place] [address] Jan, [facility] [place] [facility] [address] [facility] [id number] [place] [address] Nov, [facility] [place] [facility] [address] [facility] [id number] [place] [address] Nov, [facility] [place] [facility] [address] [facility] [id number] [place] [address] Nov, [facility] [place] [facility] [address] [facility] [id number] [place] [address] Oct, [facility] [place] [facility] [address] [id number] [place] [address] Oct, [facility] [place] [facility] [address] [id number] [place] [address] Oct, [facility] [place] [facility] [address] [facility] [id number] [place] [address] Oct, [facility] [place] [facility] [address] [id number] [place] [address] Oct, [facility] [place] [facility] [address] [facility] [id number] [place] [address] Oct, [facility] [place] [facility] [address] [id number] [place] [address] Oct, [facility] [place] [facility] [address] [facility] [id number] [place] [address] Oct, [facility] [place] [facility] [address] [facility] [id number] [place] [address] Oct, [facility] [place] [facility] [address] [facility] [id number] [place] [address] Sep, [facility] [place] [facility] [address] [id number] [place] [address] Sep, [facility] [place] [facility] [address] [facility] [id number] [place] [address] Sep, [facility] [place] [facility] [address] [id number] [place] [address] Sep, [facility] [place] [facility] [address] [id number] [place] [address] Sep, [facility] [place] [facility] [address] [id number] [place] [address] Sep, [facility] [place] [facility] [address] [id number] [place] [address] Sep, [facility] [place] [facility] [address] [id number] [place] [address] Sep, [facility] [place] [facility] [address] [id number] [place] [address] Sep, [facility] [place] [facility] [address] [id number] [place] [address] August, [facility] [place] [facility] [address] [id number] [place] [address] August, [facility] [place] [facility] [address] [id number] [place] [address] August, [facility] [place] [facility] [address] [id number] [place] [address] August, [facility] [place] [facility] [address] [id number] [place] [address] August, [facility] [place] [facility] [address] [id number] [place] [address] August, [facility] [place] [facility] [address] [id number] [place] [address] Jul, [facility] [place] [facility] [address] [id number] [place] [address] Jul, [facility] [place] [facility] [address] [id number] [place] [address] Jul, [facility] [place] [facility] [address] [id number] [place] [address] Jul, [facility] [place] [facility] [address] [id number] [place] [address] Jul, [facility] [place] [facility] [address] [id number] [place] [address] Jul, [facility] [place] [facility] [address] [id number] [place] [address] Jun, [facility] [place] [facility] [address] [id number] [place] [address] Jun, [facility] [place] [facility] [address] [id number] [place] [address] May, [facility] [place] [facility] [address] [id number] [place] [address] May, [facility] [place] [facility] [address] [id number] [place] [address] May, [facility] [place] [facility] [address] [id number] [place] [address] May, [facility] [place] [facility] [address] [id number] [place] [address] Apr, [facility] [place] [facility] [address] [id number] [place] [address] Apr, [facility] [place] [facility] [address] [id number] [place] [address] Mar, [facility] [place] [facility] [address] [id number] [place] [address] Mar, [facility] [place] [facility] [address] [id number] [place] [address] Mar, [facility] [place] [facility] [address] [id number] [place] [address] Mar, [facility] [place] [facility] [address] [id number] [place] [address] Mar, [facility] [place] [facility] [address] [id number] [place] [address] 05 Mar, 2013 [facility] [place] [facility] [address] [id number] [place] [address] Feb, [facility] [place] [facility] [address] [id number] [place] [address] Feb, [facility] [place] [facility] [address] [id number] [place] [address] Feb, [facility] [place] [facility] [address] [id number] [place] [address] Feb, [facility] [place] [facility] [address] [id number] [place] [address] Feb, [facility] [place] [facility] [address] [id number] [place] [address] Feb, [facility] [place] [facility] [address] [id number] [place] [address] Jan, [facility] [place] [facility] [address] [id number] [place] [address] Jan, [facility] [place] [facility] [address] [id number] [place] [address] Jan, [facility] [place] [facility] [address] [id number] [place] [address] Jan, [facility] [place] [facility] [address] [id number] [place] [address] Jan, [facility] [place] [facility] [address] [id number] [place] [address] Jan, [facility] [place] [facility] [address] [id number] [place] [address] Dec, [facility] [place] [facility] [address] [id number] [place] [address] Dec, [facility] [place] [facility] [address] [id number] [place] [address] Nov, [facility] [place] [facility] [address] [id number] [place] [address] Nov, [facility] [address] [id number] [place] [address] Oct, [facility] [address] [id number] [place] [address] Oct, [facility] [address] [id number] [place] [address] Oct, [facility] [address] [facility] [id number] [place] [address] Oct, [facility] [address] [id number] [place] [address] Oct, [facility] [address] [facility] [id number] [place] [address] Oct, [facility] [address] [id number] [place] [address] Sep, [facility] [address] [id number] [place] [address] Sep, [facility] [address] [id number] [place] [address] Sep, [facility] [address] [id number] [place] [address] Sep, [facility] [address] [id number] [place] [address] August, [facility] [address] [id number] [place] [address] August, [facility] [address] [id number] [place] [address] August, [facility] [address] [id number] [place] [address] August, [facility] [address] [facility] [id number] [place] [address] August, [facility] [address] [id number] [place] [address] Jul, [facility] [address] [id number] [place] [address] Jul, [facility] [address] [id number] [place] [address] 15 Jul, 2012 [facility] [address] [id number] [place] [address] Jul, [facility] [address] [id number] [place] [address] Jul, [facility] [address] [id number] [place] [address] Jul, [facility] [address] [id number] [place] [address] Jul, [facility] [address] [id number] [place] [address] Jul, [facility] [address] [id number] [place] [address] Jul, [facility] [address] [id number] [place] [address] Jul, [facility] [address] [id number] Jun, [facility] [address] [id number] [place] [address] Jun, [facility] [address] [id number] [place] [address] Jun, [facility] [address] [id number] [place] [address] Jun, [facility] [address] [id number] [place] [address] Jun, [facility] [address] [id number] [place] [address] May, [facility] [address] [id number] [place] [address] May, [facility] [facility] [address] [id number] [place] [address] May, [facility] [address] [id number] [place] [address] Apr, [facility] [address] [id number] [place] [address] Apr, [facility] [address] [id number] [place] [address] Apr, [facility] [address] [id number] [place] [address] Apr, [facility] [address] [id number] [place] [address] Apr, [facility] [address] [id number] [place] [address] Apr, [facility] [address] [id number] [place] [address] Mar, [facility] [address] [id number] [place] [address] Mar, [facility] [address] [id number] [place] [address] Mar, [facility] [address] [id number] [place] [address] Mar, [facility] [address] [id number] [place] [address] Feb, [facility] [address] [id number] [place] [address] Feb, [facility] [address] [id number] [place] [address] Feb, [facility] [address] [id number] [place] [address] Feb, [facility] [address] [id number] [place] [address] Feb, [facility] [address] [id number] [place] [address] Feb, [facility] [address] [id number] [place] [address] Feb, [facility] [address] [id number] [place] [address] Feb, [facility] [address] [id number] [place] [address] Feb, [facility] [address] [id number] [place] [address] Feb, [facility] [address] [id number] [place] [address] Feb, [facility] [address] [id number] [place] [address] Feb, [facility] [address] [id number] [place] [address] Feb, [facility] [address] [id number] [place] [address] Feb, [facility] [address] [id number] [place] [address] Feb, [facility] [address] [id number] [place] [address] Feb, [facility] [address] [id number] [place] [address] Jan, [facility] [address] [id number] [place] [address] Jan, [facility] [address] [id number] [place] [address] Jan, [facility] [address] [id number] [place] [address] Jan, [facility] [address] [id number] [place] [address] 30 Jan, 2012 [facility] [address] [id number] [place] [address] Jan, [facility] [id number] [place] [address] Jan, [facility] [address] [id number] [place] [address] Jan, [facility] [address] [id number] [place] [address] Jan, [facility] [address] [id number] [place] [address] 15 Jan, 2011 [facility] [address] [id number] [place] [address] 15 Jan, 2011 [facility] [address] [id number] [place] [address] Jan, [facility] [address] [id number] [place] [address] 26 Sep, 2011 [facility] [address] [id number] [place] [address] 26 Sep, 2011 [facility] [address] [id number] [place] [address] 24 Sep, 2011 [facility] [address] [id number] [place] [address] 23 Sep, 2011 [facility] [address] [id number] [place] [address] 22 Sep, 2011 [facility] [address] [id number] [place] [address] 21 Sep, 2011 [facility] [address] [id number] [place] [address] 20 Sep, 2011 [facility] [address] [id number] [place] [address] 20 Sep, 2011 [facility] [address] [id number] [place] [address] 07 Sep, 2011 [facility] [address] [id number] [place] [address] 06 Sep, 2011 [facility] [address] [id number] [place] [address] 06 Sep, 2011 [facility] [address] [id number] [place] [address] 05 Sep, 2011 [facility] [address] [id number] [place] [address] 23 Nov, 2011 [facility] [address] [id number] [place] [address] Nov, [facility] [address] [facility] [id number] [place] [address] Nov, [facility] [address] [facility] [id number] [place] [address] Nov, [facility] [address] [id number] [place] [address] Nov, [facility] [address] [id number] [place] [address] Nov, [facility] [address] [facility] [id number] [place] [address] Nov, [facility] [address] [id number] [place] [address] Nov, [facility] [address] [id number] [place] [address] Oct, [facility] [address] [id number] [place] [address] Oct, [facility] [address] [id number] [place] [address] Oct, [facility] [address] [id number] [place] [address] Oct, [facility] [address] [id number] [place] [address] Oct, [facility] [address] [id number] [place] [address] Oct, [facility] [address] [id number] [place] [address] Oct, [facility] [address] [id number] [place] [address] Sep, [facility] [address] [id number] [place] [address] Sep, [facility] [address] [id number] [place] [address] August, [facility] [address] [id number] [place] [address] August, [facility] [address] [id number] [place] [address] August, [facility] [address] [id number] [place] [address] August, [facility] [address] [id number] [place] [address] Jul, [facility] [address] [id number] [place] [address] Jul, [facility] [address] [id number] [place] [address] Jul, [facility] [address] [id number] [place] [address] Jul, [facility] [address] [id number] [place] [address] Jul, [facility] [address] [id number] [place] [address] Jul, [facility] [address] [id number] [place] [address] Jul, [facility] [address] [id number] [place] [address] Jul, [facility] [address] [id number] [place] [address] Jul, [facility] [address] [id number] [place] [address] 23 Jun, 2011 [facility] [address] [id number] [place] [address] 19 Jun, 2011 [facility] [address] [id number] [place] [address] 15 Jun, 2011 [facility] [address] [id number] [place] [address] 14 Jun, 2011 [facility] [address] [id number] [place] [address] 12 Jun, 2011 [facility] [address] [id number] [place] [address] Jun, [facility] [address] [id number] [place] [address] Jun, [facility] [address] [id number] [place] [address] May, [facility] [address] [id number] [place] [address] May, [facility] [address] [id number] [place] [address] May, [facility] [address] [id number] [place] [address] May, [facility] [address] [id number] [place] [address] May, [facility] [address] [id number] [place] [address] Apr, [facility] [address] [id number] [place] [address] Apr, [facility] [address] [id number] [place] [address] Apr, [facility] [address] [id number] [place] [address] Apr, [facility] [address] [id number] [place] [address] Apr, [facility] [address] [id number] [place] [address] Mar, [facility] [address] [id number] [place] [address] Mar, [facility] [address] [id number] [place] [address] Mar, [facility] [address] [id number] [place] [address] Mar, [facility] [address] [id number] [place] [address] 08 Mar, 2011 [facility] [address] [id number] [place] [address] Mar, [facility] [address] [id number] [place] [address] Mar, [facility] [address] [id number] [place] [address] Feb, [facility] [address] [id number] [place] [address] Feb, [facility] [address] [id number] [place] [address] Feb, [facility] [address] [id number] [place] [address] Feb, [facility] [address] [id number] [place] [address] Jan, [facility] [address] [id number] [place] [address] Jan, [facility] [address] [id number] [place] [address] Jan, [facility] [address] [id number] [place] [address] Jan, [facility] [address] [id number] [place] [address] Nov, [facility] [address] [id number] [place] [address] Mar, [facility] [address] [id number] [place] [address] Mar, [facility] [address] [id number] [place] [address] Mar, [facility] [address] [id number] [place] [address] Mar, [facility] [address] [id number] [place] [address] Mar, [facility] [address] [id number] [place] [address] Mar, [facility] [address] [address] Feb, [facility] [id number] [place] [address] Feb, [facility] [address] [address] Jan, [facility] [id number] [place] [address] Jan, [facility] [address] [address] Jan, IMMUNIZATIONS No Known Immunizations SOCIAL HISTORY [...] History CPAP Noncompliance_ Dr. Madden advises a [employer] driving. 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 2019 Surgical History right shoulder surgery to repair torn te ndons 02/2019 Hospitalization History Surgeries Only Hospitalization History 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 psych for SI 1988 Hospitalization History [facility]-Altered mental status 05/2017 Hospitalization History sepsis, UTI, headache 08/03/2018-
--- OUTSIDE RECORDS SUMMARY | 2019-08-01 10:07 | XMS REPORT ---
Author Author Jah Lola Doctor Organization [facility] Address Unknown Phone Unavailable Care Team Providers Care Broach Operator Name Role Phone Migration, Doctor Unavailable Unavailable PROBLEMS Type Condition ICD9-CM Code [id number] Code Onset Dates Condition S tatus SNOMED Code Problem Low back pain M54.5 Active 219663 009 Problem Hypothyroid E03.9 Active 86623832 Problem Generalized anxiety disorder F41.1 A ctive 41331760 Problem Asthma J45.909 Active 055202596 Problem Insomnia G47.00 Active 435782906 Problem Fibromyalgia M79.7 Active 9320432 05 Problem Palpitations R00.2 Active 5090288 2 Problem Primary osteoarthritis of left knee M17.12 Active 206543503 Problem Stage 3 chronic kidney disease N18.3 Active 264586304 Problem Body mass index (BMI) of 40.0-44.9 in adult Z68.41 Active 085078638 Problem Major depressive disorder, recurrent, moderate F33 .1 Active 259807610 Problem Essential (primary) hypertension I10 Active 09169157 Problem 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 [address] [facility] [id number] [address] [place] [address] Feb, [facility] [address] [facility] [id number] [address] [place] [id number] 31 Jan, 2019 [facility] [address] [facility] [id number] [address] [place] [address] Jan, [facility] [address] [address] 30 Dec, 2018 Chronic kidney disease, 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 [place] [address] [address] Dec, Major depressive disorder, r ecurrent, moderate F33.1 ; Generalized anxiety disorder F41.1 and Dysthymic disorder F34.1 [place] [address] [address] Dec, Generalized anxiety disorder F41.1 and Major depressive disorder, recurrent episode with anxious distress F33.9 [place] [address] [address] Dec, [place] [address] [address] Dec, [place] [address] [address] Dec, Encounter for immunization Z 23 [place] [address] [address] Dec, Diarrhea, unspecified type R 19.7 and Hemorrhoids, unspecified hemorrhoid type K64.9 [place] [address] [address] 12 Dec, 2018 Encounter for Medicare annua l wellness exam Z00.00 ; Chronic kidney disease, stage 4 (severe) N18.4 ; Encounter for immunization Z23 ; Major depressive disorder, recurrent, moderate F33.1 ; Atherosclerosis of standing rock coronary artery of standing rock heart with angina pectoris I25.119 ; Asthma J45.909 ; Hypothyroid E03.9 and Fibromyalgia M79.7 [place] [address] [place] [id number] [address] [place] [address] Dec, Chronic pain syndrome G89.4 [place] [address] [place] [id number] [place] [address] Nov, Major depressive disorder, r ecurrent, moderate F33.1 ; Generalized anxiety disorder F41.1 and Dysthymic disorder F34.1 [facility] [address] [id number] [address] [place] [address] Nov, [facility] [address] [facility] [id number] [address] [place] [address] Nov, Chronic pain syndrome G89.4 [facility] [address] [facility] [id number] [address] [place] [address] Nov, Restless leg syndrome G25.81 [facility] [address] [facility] [id number] [address] [place] [address] Nov, Pain in right shoulder M25.5 11 ; Restless leg syndrome G25.81 ; Other chronic pain G89.29 ; Screening for breast cancer Z12.39 ; Insomnia G47.00 and Morbid obesity E66.01 [facility] [address] [facility] [id number] [address] [place] [address] Nov, [facility] [address] [facility] [id number] [address] [place] [address] Oct, Major depressive disorder, r ecurrent, moderate F33.1 ; Generalized anxiety disorder F41.1 and Dysthymic disorder F34.1 [facility] [address] [facility] [id number] [address] [place] [address] Oct, [facility] [address] [facility] [id number] [address] [place] [address] Oct, Cellulitis of left lower ext remity L03.116 and Morbid obesity E66.01 [facility] [address] [facility] [id number] [address] [place] [address] Oct, [facility] [address] [facility] [id number] [address] [place] [address] Oct, [facility] [address] [facility] [id number] [address] [place] [address] Oct, Generalized anxiety disorder F41.1 and Major depressive disorder, recurrent episode with anxious distress F33.9 [facility] [address] [id number] [address] [place] [address] 15 Oct, 2018 [facility] [address] [id number] [address] [place] [address] Oct, Chronic pain syndrome G89.4 [facility] [address] [id number] [address] [place] [address] Oct, Chronic pain syndrome G89.4 [facility] [address] [id number] [address] [place] [address] Oct, UTI symptoms R39.9 ; Acute c ystitis without hematuria N30.00 and Morbid obesity E66.01 [facility] [address] [id number] [address] [place] [address] Oct, [facility] [address] [facility] [id number] [address] [place] [address] Oct, Chronic pain syndrome G89.4 [facility] [address] [id number] [address] [place] [address] Sep, [facility] [address] [facility] [id number] [address] [place] [address] Sep, Generalized anxiety disorder F41.1 and Major depressive disorder, recurrent episode with anxious distress F33.9 [facility] [address] [facility] [id number] [address] [place] [address] 17 Sep, 2018 Chronic kidney disease, 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 [facility] [address] [id number] [address] [place] [address] Sep, Fibromyalgia M79.7 and Chron ic pain syndrome G89.4 [facility] [address] [id number] [address] [place] [address] Sep, [address] [address] Sep, Chronic pain syndrome G89.4 [facility] [address] [id number] [address] [place] [address] 07 Sep, 2018 [facility] [address] [id number] [address] [place] [address] Sep, Chronic pain syndrome G89.4 ; Fibromyalgia M79.7 and Morbid obesity E66.01 [facility] [address] [facility] [id number] [address] [place] [address] August, Generalized anxiety disorder F41.1 and Major depressive disorder, recurrent episode with anxious distress F33.9 [facility] [address] [facility] [id number] [address] [place] [address] August, Fibromyalgia M79.7 [facility] [address] [facility] [id number] [address] [place] [address] August, Restless leg syndrome G25.81 ; Vitamin D deficiency E55.9 ; Urinary tract infection without hematuria, site unspecified N39.0 ; Pain in right shoulder M25.511 ; Other chronic pain G89.29 ; Biceps tendinitis on right M75.21 and Morbid obesity E66.01 [facility] [address] [id number] [address] [place] [address] Jul, Urinary tract infection with out hematuria, site unspecified N39.0 and Morbid obesity E66.01 [facility] [address] [facility] [id number] [address] [place] [address] Jul, [facility] [address] [facility] [id number] [address] [place] [address] Jul, [facility] [address] [facility] [id number] [address] [place] [address] Jul, Fibromyalgia M79.7 [facility] [address] [facility] [id number] [address] [place] [address] Jul, Acute pain of right shoulder M25.511 [facility] [address] [facility] [id number] [address] [place] [address] Jul, Acute pain of right shoulder M25.511 and Morbid obesity E66.01 [place] [address] [facility] [id number] [address] [place] [address] Jun, [place] [address] [place] [id number] [place] [address] 14 Jun, 2018 Generalized anxiety disorder F41.1 and Major depressive disorder, recurrent episode with anxious distress F33.9 [place] [address] [place] [id number] [address] [place] [address] Jun, [place] [address] [place] [id number] [place] [address] Jun, Fibromyalgia M79.7 [facility] [address] [place] [id number] [place] [address] 04 Jun, 2018 Acute pain of right shoulder M25.511 ; Acute pain of right hip M25.551 and Morbid obesity E66.01 [place] [address] [address] [place] [id number] [address] [place] [address] 11 May, 2018 Burning with urination R30.0 ; Vaginal discharge N89.8 ; Chronic kidney disease, stage 4 (severe) N18.4 ; Body mass index (BMI) of 40.0-44.9 in adult Z68.41 and Morbid obesity E66.01 [place] [address] [address] [place] [id number] [address] [place] [address] 07 May, 2018 Fibromyalgia M79.7 [place] [address] [place] [id number] [address] [place] [address] 06 May, 2018 Generalized anxiety disorder F41.1 and Major depressive disorder, recurrent episode with anxious distress F33.9 [place] [address] [facility] [id number] [address] [place] [address] Apr, [place] [address] [place] [id number] [address] [place] [address] Apr, Fibromyalgia M79.7 [facility] [address] [facility] [id number] [address] [place] [address] Mar, Acute UTI N39.0 and Dysuria R30.0 [facility] [address] [id number] [address] [place] [address] 10 Mar, 2018 Fibromyalgia M79.7 [facility] [address] [id number] [address] [place] [address] 15 Feb, 2018 [facility] [address] [id number] [address] [place] [address] Feb, [facility] [address] [id number] [address] [place] [address] Feb, [facility] [address] [id number] [address] [place] [address] Feb, Fibromyalgia M79.7 [facility] [address] [id number] [address] [place] [address] 08 Feb, 2018 Complicated UTI (urinary tra ct infection) N39.0 [facility] [address] [id number] [address] [place] [address] Feb, [facility] [address] [id number] [address] [place] [address] Jan, Generalized anxiety disorder F41.1 and Major depressive disorder, recurrent episode with anxious distress F33.9 [facility] [address] [id number] [address] [place] [address] Jan, Acute conjunctivitis of left eye, unspecified acute conjunctivitis type H10.32 [facility] [address] [id number] [address] [place] [address] Jan, [facility] [address] [id number] [address] [place] [address] Jan, Acute non-recurrent maxillar y sinusitis J01.00 ; Dysuria R30.0 ; Perimenopausal vasomotor symptoms N95.1 and Fibromyalgia M79.7 [facility] [address] [facility] [id number] [address] [place] [address] 28 Dec, 2017 Vitamin D deficiency E55.9 [facility] [address] [facility] [id number] [address] [place] [address] Dec, Vitamin D deficiency E55.9 [facility] [address] [facility] [id number] [address] [place] [address] Dec, Vitamin D deficiency E55.9 [facility] [address] [facility] [id number] [address] [place] [address] Dec, [facility] [address] [facility] [id number] [address] [place] [address] Dec, Fibromyalgia M79.7 [facility] [address] [facility] [id number] [address] [place] [address] Nov, [facility] [address] [facility] [id number] [address] [place] [address] Nov, [place] [address] [place] [id number] [address] [place] [address] Nov, [facility] [address] [facility] [id number] [address] [place] [address] Nov, Fibromyalgia M79.7 ; Vision changes H53.9 ; Chest wall pain R07.89 and Chronic pain syndrome G89.4 [place] [id number] [facility] [id number] [address] [place] [address] Nov, [place] [address] [place] [id number] [address] [place] [address] Nov, Rash of hands R21 [place] [address] [facility] [id number] [address] [place] [address] Nov, Generalized anxiety disorder F41.1 and Major depressive disorder, recurrent episode with anxious distress F33.9 [facility] [address] [facility] [id number] [address] [place] [address] Nov, Fibromyalgia M79.7 [facility] [address] [facility] [id number] [address] [place] [address] Nov, Complicated UTI (urinary tra ct infection) N39.0 [facility] [address] [id number] [address] [place] [address] Oct, [facility] [address] [id number] [address] [place] [address] Oct, Generalized anxiety disorder F41.1 and Major depressive disorder, recurrent episode with anxious distress F33.9 [facility] [address] [facility] [id number] [address] [place] [address] Oct, [facility] [address] [id number] [address] [place] [address] Oct, Fibromyalgia M79.7 [facility] [address] [facility] [id number] [address] [place] [address] Sep, Restless leg syndrome G25.81 and Restless leg G25.81 [facility] [address] [facility] [id number] [address] [place] [address] Sep, [facility] [address] [facility] [id number] [address] [place] [address] Sep, Seasonal allergic rhinitis d ue to pollen J30.1 ; Screening for breast cancer Z12.31 ; Chest pain at rest R07.9 ; Restless leg syndrome G25.81 ; Essential (primary) hypertension I10 and Depressed F32.9 [facility] [address] [facility] [id number] [address] [place] [address] August, Fibromyalgia M79.7 [facility] [address] [facility] [id number] [address] [place] [address] August, [facility] [address] [id number] [address] [place] [address] August, [facility] [address] [facility] [id number] [address] [place] [address] August, Abnormal chest CT R93.8 [facility] [address] [facility] [id number] [address] [place] [address] August, Generalized anxiety disorder F41.1 and Major depressive disorder, recurrent episode with anxious distress F33.9 [facility] [address] [facility] [id number] [address] [place] [address] August, Abnormal chest CT R93.8 [facility] [address] [facility] [id number] [address] [place] [address] Jul, [facility] [address] [place] [id number] [place] [address] Jul, Chronic kidney disease, 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 [facility] [address] [place] [id number] [address] [place] [address] Jul, [place] [address] [place] [id number] [place] [address] Jul, Restless leg G25.81 ; Mixed stress and urge urinary incontinence N39.46 and Fibromyalgia M79.7 [place] [address] [place] [id number] [address] [place] [address] Jul, Chronic kidney disease, 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 [facility] [address] [address] Jun, Orthostatic hypotension I95. 1 ; Chronic kidney disease, stage 4 (severe) N18.4 ; Chest wall discomfort R07.89 and Body mass index (BMI) of 40.0- 44.9 in adult Z68.41 [facility] [address] [place] [id number] [address] [place] [address] Jun, [facility] [address] [facility] [id number] [address] [place] [address] Jun, Orthostatic hypotension I95. 1 [place] [address] [place] [id number] [address] [place] [address] Jun, [facility] [address] [facility] [id number] [address] [place] [address] Jun, Orthostatic hypotension I95. 1 ; Dysuria R30.0 and Acute cystitis without hematuria N30.00 [facility] [address] [facility] [id number] [address] [place] [address] Jun, [facility] [address] [facility] [id number] [address] [place] [address] Jun, Chronic kidney disease, 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 [facility] [address] [place] [id number] [address] [place] [address] Jun, Fibromyalgia M79.7 [facility] [address] [facility] [id number] [address] [place] [address] Jun, [facility] [address] [facility] [id number] [address] [place] [address] Jun, [facility] [address] [place] [id number] [address] [place] [address] May, Abnormal chest [address] R93.8 and Stage 3 chronic kidney disease N18.3 [facility] [address] [facility] [id number] [address] [place] [address] May, Chronic kidney disease, 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 [facility] [address] [facility] [id number] [address] [place] [address] May, Chronic kidney disease, 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 [facility] [address] [place] [id number] [address] [place] [address] May, Abnormal chest [address] R93.8 [facility] [address] [facility] [id number] [address] [place] [address] May, [facility] [address] [place] [id number] [address] [place] [address] May, [facility] [address] [place] [id number] [address] [place] [address] May, Generalized anxiety disorder F41.1 and Major depressive disorder, recurrent episode with anxious distress F33.9 [facility] [address] [id number] [address] [place] [address] May, Mood disorder F39 [facility] [address] [id number] [address] [place] [address] Apr, [facility] [address] [id number] [address] [place] [address] Apr, Infected skin lesion L08.9 a nd Muscle strain of right shoulder region, initial encounter S46.911A [facility] [address] [id number] [address] [place] [address] Apr, Generalized anxiety disorder F41.1 and Major depressive disorder, recurrent episode with anxious distress F33.9 [facility] [address] [id number] [address] [place] [address] Apr, [facility] [address] [id number] [address] [place] [address] Apr, Recent urinary tract infecti on Z87.440 and Hypothyroid E03.9 [facility] [address] [id number] [address] [place] [address] Apr, Generalized anxiety disorder F41.1 and Major depressive disorder, recurrent episode with anxious distress F33.9 [facility] [address] [id number] [address] [place] [address] Apr, Recent urinary tract infecti on Z87.440 [facility] [address] [id number] [address] [place] [address] Mar, [facility] [address] [id number] [address] [place] [address] Mar, Dysuria R30.0 ; Acute cystit is without hematuria N30.00 and BMI 40.0-44.9, adult Z68.41 [facility] [address] [id number] [address] [place] [id number] Mar, [facility] [address] [id number] [address] [place] [id number] 07 Mar, 2017 [facility] [address] [facility] [id number] [address] [place] [id number] Mar, Generalized anxiety disorder F41.1 and Major depressive disorder, recurrent episode with anxious distress F33.9 [facility] [address] [facility] [id number] [address] [place] [id number] 29 Feb, 2017 Conjunctivitis, bacterial H1 0.9 [facility] [address] [facility] [id number] [address] [place] [id number] Feb, [facility] [address] [facility] [id number] [address] [place] [id number] Feb, Conjunctivitis, bacterial H1 0.9 [facility] [address] [facility] [id number] [address] [place] [id number] Feb, [facility] [address] [facility] [id number] [address] [place] [id number] Feb, Dysuria R30.0 ; Acute cystit is N30.00 and BMI 40.0-44.9, adult Z68.41 [place] [address] [facility] [id number] [address] [place] [id number] Feb, [facility] [address] [facility] [id number] [address] [place] [id number] Feb, Generalized anxiety disorder F41.1 and Major depressive disorder, recurrent episode with anxious distress F33.9 [facility] [address] [facility] [id number] [address] [place] [id number] Feb, Mood disorder F39 and BMI 40 .0-44.9, adult Z68.41 [facility] [address] [facility] [id number] [address] [place] [id number] Jan, [facility] [address] [facility] [id number] [address] [place] [id number] 18 Jan, 2017 [facility] [address] [facility] [id number] [address] [place] [address] Jan, Hypothyroid E03.9 [facility] [address] [id number] [address] [place] [address] Jan, [facility] [address] [facility] [id number] [address] [place] [address] Jan, Chronic kidney disease, unsp ecified N18.9 ; Hypokalemia E87.6 ; Essential (primary) hypertension I10 ; Fibromyalgia M79.7 ; Coronary artery disease involving standing rock coronary artery of standing rock heart, angina presence unspecified I25.10 ; Hypothyroid E03.9 and Encounter for immunization Z23 [facility] [address] [facility] [id number] [address] [place] [address] Jan, Hypothyroid E03.9 [facility] [address] [facility] [id number] [address] [place] [address] Jan, [place] [address] [facility] [id number] [address] [place] [address] Dec, Vitamin D deficiency E55.9 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 [address] [facility] [id number] [address] [place] [address] 18 Dec, 2016 Mood disorder F39 [facility] [address] [facility] [id number] [address] [place] [address] Dec, [place] [address] [facility] [id number] [address] [place] [address] Dec, Generalized anxiety disorder F41.1 and Major depressive disorder, recurrent episode with anxious distress F33.9 [place] [address] [facility] [id number] [address] [place] [address] 11 Dec, 2016 [facility] [address] [id number] [address] [place] [address] 08 Dec, 2016 Streptococcal meningitis G00 .2 [facility] [address] [id number] [address] [place] [address] 07 Dec, 2016 Streptococcal meningitis G00 .2 [facility] [address] [id number] [address] [place] [address] 07 Dec, 2016 [facility] [address] [id number] [address] [place] [address] 06 Dec, 2016 Streptococcal meningitis G00 .2 [facility] [address] [id number] [address] [place] [address] Dec, [facility] [address] [id number] [address] [place] [address] Dec, Major depressive disorder, r ecurrent episode with anxious distress F33.9 [facility] [address] [id number] [address] [place] [address] Nov, Fever, unspecified fever cau se R50.9 [facility] [address] [id number] [address] [place] [address] Nov, [facility] [address] [id number] [address] [place] [address] 16 Nov, 2016 Hypothyroid E03.9 [facility] [address] [id number] [address] [place] [address] Nov, Generalized anxiety disorder F41.1 and Major depressive disorder, recurrent episode with anxious distress F33.9 [facility] [address] [id number] [address] [place] [address] Nov, [facility] [address] [id number] [address] [place] [id number] Oct, Dental examination Z01.20 [facility] [address] [id number] [address] [place] [address] Oct, Generalized anxiety disorder F41.1 and Major depressive disorder, recurrent episode with anxious distress F33.9 [facility] [address] [id number] [address] [place] [address] Oct, Chronic kidney disease, 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 [facility] [address] [facility] [id number] [address] [place] [address] Oct, [place] [address] [facility] [id number] [address] [place] [address] Oct, Fibromyalgia M79.7 [place] [address] [facility] [id number] [address] [place] [address] Oct, [place] [address] [facility] [id number] [address] [place] [address] Oct, Generalized anxiety disorder F41.1 ; Major depressive disorder, recurrent episode with anxious distress F33.9 and Bipolar disorder, current episode manic without psychotic features F31.10 [place] [address] [facility] [id number] [address] [place] [address] Sep, [place] [address] [id number] [address] [place] [address] Sep, [place] [address] [facility] [id number] [address] [place] [address] Sep, Vitamin D deficiency E55.9 [place] [address] [facility] [id number] [address] [place] [address] Sep, Vitamin D deficiency E55.9 [place] [address] [facility] [id number] [address] [place] [address] Sep, [place] [address] [facility] [id number] [address] [place] [address] Sep, Chronic kidney disease, stag e 4 [...] examination Z12.39 and Low back pain M54.5 [facility] [address] [place] [id number] [address] [place] [address] August, Generalized anxiety disorder F41.1 and Major depressive disorder, recurrent episode with anxious distress F33.9 [place] [address] [place] [id number] [address] [place] [address] August, Generalized anxiety disorder F41.1 and Major depressive disorder, recurrent episode with anxious distress F33.9 [place] [address] [place] [id number] [address] [place] [address] August, Fibromyalgia M79.7 [place] [address] [address] Jul, Generalized anxiety disorder F41.1 and Major depressive disorder, recurrent episode with anxious distress F33.9 [place] [address] [place] [id number] [address] [place] [address] Jul, Fibromyalgia M79.7 [place] [address] [place] [id number] [address] [place] [address] Jul, Generalized anxiety disorder F41.1 [place] [address] [place] [id number] [address] [place] [address] May, [place] [address] [place] [id number] [address] [place] [address] May, Hypothyroid E03.9 [place] [address] [place] [id number] [address] [place] [address] May, Chronic kidney disease, stag e 4 [...] standing rock heart, angina presence unspecified I25.10 [facility] [address] [id number] [address] [place] [address] 02 May, 2016 Vitamin D deficiency, unspec ified E55.9 [facility] [address] [id number] [address] [place] [address] May, Generalized anxiety disorder F41.1 and Major depressive disorder, recurrent episode with anxious distress F33.9 [facility] [address] [id number] [address] [place] [address] Apr, Pain in right knee M25.561 a nd Pain in left knee M25.562 [facility] [address] [id number] [address] [place] [address] Apr, [facility] [address] [id number] [address] [place] [address] Apr, [facility] [address] [id number] [address] [place] [address] Apr, [facility] [address] [facility] [id number] [address] [place] [address] Mar, Generalized anxiety disorder F41.1 and Major depressive disorder, recurrent episode with anxious distress F33.9 [facility] [address] [id number] [address] [place] [address] Mar, Generalized anxiety disorder F41.1 and Major depressive disorder, recurrent episode with anxious distress F33.9 [facility] [address] [id number] [address] [place] [address] Mar, [facility] [address] [facility] [id number] [address] [place] [address] Mar, [facility] [address] [facility] [id number] [address] [place] [address] Mar, [place] [address] [place] [id number] [address] [place] [address] Mar, Asthma J45.909 and Fibromyal elvira M79.7 [place] [address] [place] [id number] [place] [address] Mar, Chronic kidney disease, 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 ; Vitamin D deficiency E55.9 and Essential (primary) hypertension I10 [place] [address] [place] [address] Feb, [place] [address] [address] Feb, Dysuria R30.0 ; Mixed stress and urge urinary incontinence N39.46 ; Fibromyalgia M79.7 and Chronic kidney disease, stage IV (severe) N18.4 [place] [address] [address] Feb, Chronic kidney disease, 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 [place] [address] [place] [id number] [address] [place] [address] Feb, Chronic kidney disease, 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 [place] [address] [place] [id number] [address] [place] [address] Feb, [place] [address] [address] Feb, Vitamin D deficiency, unspec ified E55.9 [place] [address] [facility] [id number] [address] [place] [address] Jan, [place] [address] [place] [id number] [place] [address] Jan, [place] [address] [place] [id number] [address] [place] [address] Dec, [place] [address] [place] [id number] [place] [address] Dec, Chronic kidney disease, 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 [facility] [address] [address] Dec, Dysthymic disorder F34.1 and Generalized anxiety disorder F41.1 [facility] [address] [place] [id number] [place] [address] Dec, [facility] [address] [address] Dec, [place] [address] [address] Dec, Dysthymic disorder F34.1 and Generalized anxiety disorder F41.1 [place] [address] [address] Dec, Dysuria R30.0 ; Chronic kidn ey disease, stage 4 (severe) N18.4 ; Hypertension I10 ; Dyspepsia R10.13 ; Yeast dermatitis B37.2 ; Palpitations R00.2 ; Hypothyroid E03.9 ; Functional diarrhea K59.1 and Other seasonal allergic rhinitis J30.2 [facility] [address] [address] Dec, [facility] [address] [address] Nov, Dysuria R30.0 and Stress inc ontinence N39.3 [facility] [address] [address] Nov, [facility] [address] [address] Nov, [place] [address] [address] Nov, Osteoarthritis of knees, jose ateral M17.0 [facility] [address] [address] Nov, Dysthymic disorder F34.1 and Generalized anxiety disorder F41.1 [facility] [address] [place] [id number] [address] [place] [address] Nov, [facility] [address] [place] [id number] [address] [place] [address] Nov, [facility] [address] [place] [id number] [place] [address] Nov, Urgency of urination R39.15 [facility] [address] [place] [id number] [place] [address] Nov, [place] [address] [address] Nov, Chronic kidney disease, 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 [place] [address] [address] Oct, Hypertension I10 ; Coronary artery disease involving standing rock coronary artery of standing rock heart, angina presence unspecified I25.10 ; Palpitations R00.2 ; Hypothyroid E03.9 ; Right foot pain M79.671 ; Functional diarrhea K59.1 and Other seasonal allergic rhinitis J30.2 [facility] [address] [place] [id number] [address] [place] [address] Oct, Dysthymic disorder F34.1 and Generalized anxiety disorder F41.1 [facility] [id number] [place] [address] Sep, [facility] [address] [place] [id number] [address] [place] [address] Sep, [facility] [address] [address] Sep, [facility] [address] [place] [id number] [address] [place] [address] Sep, [facility] [address] [address] Sep, [place] [address] [address] 27 Sep, 2015 Dysthymic disorder F34.1 and Generalized anxiety disorder F41.1 [place] [address] [address] 16 Sep, 2015 Asthma with acute exacerbati on in adult J45.901 ; Dysuria R30.0 ; Chronic kidney disease, stage 4 (severe) N18.4 and History of anemia Z86.2 [place] [address] [address] 2015 Generalized anxiety disorder F41.1 and Dysthymic disorder F34.1 [place] [address] [address] August, Screening breast examination Z12.39 and Acute recurrent maxillary sinusitis J01.[address] [address] August, Osteoarthritis of knees, jose ateral M17.[address] [address] August, Chronic kidney disease, 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 ; Acute non- recurrent maxillary sinusitis J01.00 ; Urinary problem R39.89 ; Bowel habit changes R19.4 ; Functional diarrhea K59.1 and History of colon polyps Z86.010 [place] [address] [address] Jul, Dysthymic disorder F34.1 and Generalized anxiety disorder F41.1 [place] [address] [address] Jul, [place] [address] [address] Jul, Dysthymic disorder F34.1 ; G eneralized anxiety disorder F41.1 and 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 [address] [facility] [id number] [address] [place] [address] 16 Jun, 2015 [facility] [address] [facility] [id number] [address] [place] [address] Jun, [facility] [address] [place] [id number] [address] [place] [address] May, [facility] [address] [facility] [id number] [address] [place] [address] May, Dysthymic disorder F34.1 and Generalized anxiety disorder F41.1 [facility] [address] [facility] [id number] [address] [place] [address] Apr, Kidney disease N28.9 [facility] [address] [place] [id number] [address] [place] [address] Apr, Generalized anxiety disorder F41.1 and Dysthymic disorder F34.1 [facility] [address] [place] [id number] [address] [place] [address] Apr, Chronic kidney disease, 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 [facility] [address] [facility] [id number] [address] [place] [address] Apr, Generalized anxiety disorder F41.1 ; Major depression, recurrent F33.9 and Sleep disturbance G47.9 [facility] [address] [facility] [id number] [address] [place] [address] Mar, Generalized anxiety disorder F41.1 and Dysthymic disorder F34.1 [facility] [address] [place] [id number] [address] [place] [address] Mar, Generalized anxiety disorder F41.1 ; Dysthymic disorder F34.1 and Insomnia G47.00 [facility] [address] [facility] [id number] [address] [place] [address] Mar, [place] [address] [address] Mar, [facility] [address] [address] Mar, Osteoarthritis of knees, jose ateral M17.0 [facility] [address] [address] Mar, Hypertension I10 ; Hypothyro id E03.9 ; Dysthymic disorder F34.1 ; Chronic kidney disease, stage 4 (severe) N18.4 and Nausea & vomiting R11.2 [place] [address] [address] Mar, Generalized anxiety disorder F41.1 ; Dysthymic disorder F34.1 and Insomnia G47.00 [place] [address] [address] Mar, Dehydration E86.0 ; Chronic kidney disease, stage 4 (severe) N18.4 and Nausea & vomiting R11.2 [facility] [address] [address] Mar, Gastroenteritis K52.9 [facility] [address] [address] Mar, [place] [address] [address] Mar, [place] [address] [address] Feb, Dysthymic disorder F34.1 and Generalized anxiety disorder F41.1 [place] [address] [address] Jan, UTI (urinary tract infection ) N39.0 ; Asthma J45.909 ; Coronary artery disease involving standing rock coronary artery of standing rock heart, angina presence unspecified I25.10 ; Hypertension I10 ; Hypothyroid E03.9 ; Vitamin D deficiency E55.9 ; Insomnia G47.00 ; Palpitations R00.2 ; Depressed F32.9 ; Restless leg G25.81 and Anxiety F41.9 [place] [address] [address] Jan, Dysthymic disorder F34.1 and Generalized anxiety disorder F41.1 [place] [address] [address] Jan, [place] [address] [address] Dec, [place] [address] [address] Dec, Alkalosis 276.3 ; Chronic ki dney disease, Stage IV (severe) 585.4 ; Hyperpotassemia 276.7 ; Secondary hyperparathyroidism, renal 588.81 ; Proteinuria 791.0 ; Unspecified vitamin D deficiency 268.9 ; Anemia in chronic kidney disease 285.21 ; Other and unspecified hyperlipidemia 272.4 ; Hypertension, essential, benign 401.1 and Chronic kidney disease (CKD), stage III (moderate) 585.3 [place] [address] [address] Dec, [place] [address] [address] Dec, Depressive disorder, not els ewhere classified 311 and Generalized anxiety disorder 300.02 [place] [address] [address] Dec, [place] [address] [address] Dec, [place] [address] [address] Nov, Depressive disorder, not els ewhere classified 311 and Generalized anxiety disorder 300.02 [place] [address] [address] Nov, Arthritis of both knees 716. 96 [place] [id number] [place] [address] Nov, PAF (paroxysmal atrial fibri llation) 427.31 ; CAD (coronary artery disease) 414.00 ; Chest pain 786.50 and Chronic kidney disease (CKD) stage G4/A1, severely decreased glomerular filtration rate (GFR) between 15-29 mL/min/1.73 square meter and albuminuria creatinine ratio less than 30 mg/g 585.[address] [address] Oct, Coronary atherosclerosis of unspecified type of vessel, standing rock or graft 414.00 ; Chronic kidney disease, Stage IV (severe) 585.4 ; Hypertension 401.9 and Edema 782.3 [place] [id number] [place] [address] Oct, Depressive disorder, not els ewhere classified 311 and Generalized anxiety disorder 300.[address] [address] Oct, Depressive disorder, not els ewhere classified 311 and Generalized anxiety disorder 300.[address] [address] Oct, [place] [address] [place] [id number] [place] [address] Oct, [place] [id number] [address] [place] [address] Sep, [address] [address] Sep, Chronic kidney disease, Stag e IV (severe) 585.4 [place] [id number] [address] [place] [address] Sep, [place] [id number] [place] [address] Sep, Coronary atherosclerosis of unspecified type of vessel, standing rock or graft 414.00 ; Hypertension 401.9 ; Edema 782.3 and Hypothyroidism 244.9 [facility] [address] [facility] [id number] [address] [place] [address] Sep, Coronary atherosclerosis of unspecified type of vessel, standing rock or graft 414.00 ; Hypertension 401.9 ; Fibromyalgia 729.1 ; Edema 782.3 ; Hypothyroidism 244.9 and Anemia 285.9 [facility] [address] [address] Sep, Anxiety disorder, unspecifie d 300.00 and Depressive disorder, not elsewhere classified 311 [facility] [address] [address] Sep, [facility] [address] [address] August, Generalized anxiety disorder 300.02 [facility] [address] [address] August, Closed fracture of lateral m alleolus 824.2 [facility] [address] [place] [id number] [address] [place] [address] Jul, [facility] [address] [address] Jul, [facility] [address] [place] [id number] [address] [place] [address] Jun, [facility] [address] [place] [id number] [address] [place] [address] Jun, [facility] [address] [place] [id number] [address] [place] [address] Jun, [facility] [address] [place] [id number] [place] [address] Jun, [facility] [address] [place] [id number] [address] [place] [address] Jun, [facility] [address] [place] [id number] [address] [place] [address] Jun, [facility] [address] [id number] [address] [place] [address], [place] [address] 19 May, 2014 [facility] [address] [id number] [address] [place] [address], [place] [id number] 19 May, 2014 [facility] [address] [id number] [address] [place] [address], [place] [id number] 18 May, 2014 [facility] [address] [id number] [address] [place] [address], [place] [id number] 18 May, 2014 [facility] [address] [id number] [address] [place] [address], [place] [id number] 16 May, 2014 [facility] [address] [id number] [address] [place] [address], [place] [id number] 16 May, 2014 [facility] [address] [id number] [address] [place] [address], [place] [id number] 13 May, 2014 [facility] [address] [id number] [address] [place] [address], [place] [id number] 13 May, 2014 [facility] [address] [id number] [address] [place] [address], [place] [id number] 10 May, 2014 [facility] [address] [id number] [address] [place] [address], [place] [id number] 10 May, 2014 [facility] [address] [id number] [address] [place] [address], [place] [id number] Apr, [facility] [address] [id number] [address] [place] [address], [place] [id number] Apr, [facility] [address] [id number] [address] [place] [address], [place] [id number] Mar, [facility] [address] [id number] [address] [place] [address], [place] [id number] Mar, [facility] [address] [id number] [address] [place] [address], [place] [id number] Mar, [facility] [address] [id number] [address] [place] [address], [place] [id number] 15 Mar, 2014 [facility] [address] [id number] [address] [place] [address], [place] [id number] Mar, [facility] [address] [id number] [address] [place] [address], [place] [id number] Mar, [facility] [address] [id number] [address] [place] [address], [place] [id number] Mar, [facility] [facility] [address] [id number] [address] [place] [address], [place] [address] Feb, [facility] [address] [id number] [address] [place] [address], [place] [address] Feb, [facility] [address] [id number] [address] [place] [address], [place] [address] Feb, [facility] [address] [id number] [address] [place] [address], [place] [address] Jan, [facility] [address] [id number] [address] [place] [address], [place] [address] Jan, [facility] [address] [id number] [address] [place] [address], [place] [address] Jan, [facility] [address] [id number] [address] [place] [address], [place] [address] Jan, [facility] [address] [id number] [address] [place] [address], [place] [address] Jan, [facility] [address] [id number] [address] [place] [address], [place] [address] Jan, [facility] [address] [id number] [address] [place] [address], [place] [address] Jan, [facility] [address] [id number] [address] [place] [address], [place] [address] Jan, [facility] [address] [id number] [address] [place] [address], [place] [address] Jan, [facility] [address] [id number] [address] [place] [address], [place] [address] Jan, [facility] [address] [id number] [address] [place] [address], [place] [address] Nov, [facility] [address] [id number] [address] [place] [address], [place] [address] Nov, [facility] [address] [id number] [address] [place] [address], [place] [address] Nov, [facility] [address] [id number] [address] [place] [address], [place] [address] Oct, [facility] [address] [id number] [address] [place] [address], [place] [address] Oct, [facility] [address] [id number] [address] [place] [address], [place] [address] Oct, [facility] [address] [id number] [address] [place] [address], [place] [address] Oct, [facility] [address] [id number] [address] [place] [address], [place] [address] Oct, [facility] [address] [id number] [address] [place] [address], [place] [address] Oct, [facility] [address] [id number] [address] [place] [address], [place] [address] Oct, [facility] [address] [id number] [address] [place] [address], [place] [address] Oct, [facility] [address] [id number] [address] [place] [address], [place] [address] Oct, [facility] [address] [id number] [address] [place] [address], [place] [address] Sep, [facility] [address] [id number] [address] [place] [address], [place] [address] Sep, [facility] [address] [id number] [address] [place] [address], [place] [address] Sep, [facility] [address] [id number] [address] [place] [address], [place] [address] Sep, [facility] [address] [id number] [address] [place] [address], [place] [address] Sep, [facility] [address] [id number] [address] [place] [address], [place] [address] Sep, [facility] [address] [id number] [address] [place] [address], [place] [address] Sep, [facility] [address] [id number] [address] [place] [address], [place] [address] Sep, [facility] [address] [id number] [address] [place] [address], [place] [address] Sep, [facility] [address] [id number] [address] [place] [address], [place] [address] August, [facility] [address] [id number] [address] [place] [address], [place] [address] August, [facility] [address] [id number] [address] [place] [address], [place] [address] August, [facility] [address] [id number] [address] [place] [address], [place] [address] August, [facility] [address] [id number] [address] [place] [address], [place] [address] August, [facility] [address] [id number] [address] [place] [address], [place] [address] August, [facility] [address] [id number] [address] [place] [address], [place] [address] Jul, [facility] [address] [id number] [address] [place] [address], [place] [address] Jul, [facility] [address] [id number] [address] [place] [address], [place] [address] Jul, [facility] [address] [id number] [address] [place] [address], [place] [address] Jul, [facility] [address] [id number] [address] [place] [address], [place] [address] Jul, [facility] [address] [id number] [address] [place] [address], [place] [address] Jul, [facility] [address] [id number] [address] [place] [address], [place] [address] Jun, [facility] [address] [id number] [address] [place] [address], [place] [address] Jun, [facility] [address] [id number] [address] [place] [address], [place] [address] May, [facility] [address] [id number] [address] [place] [address], [place] [address] May, [facility] [address] [id number] [address] [place] [address], [place] [address] May, [facility] [address] [id number] [address] [place] [address], [place] [address] May, [facility] [address] [id number] [address] [place] [address], [place] [address] Apr, [facility] [address] [id number] [address] [place] [address], [place] [address] Apr, [facility] [address] [id number] [address] [place] [address], [place] [address] Mar, [facility] [address] [id number] [address] [place] [address], [place] [address] Mar, [facility] [address] [id number] [address] [place] [address], [place] [address] Mar, [facility] [address] [id number] [address] [place] [address], [place] [address] 17 Mar, 2013 [facility] [address] [id number] [address] [place] [address], [place] [address] 05 Mar, 2013 [facility] [address] [id number] [address] [place] [address], [place] [address] 05 Mar, 2013 [facility] [address] [id number] [address] [place] [address], [place] [address] Feb, [facility] [address] [id number] [address] [place] [address], [place] [address] Feb, [facility] [address] [id number] [address] [place] [address], [place] [address] Feb, [facility] [address] [id number] [address] [place] [address], [place] [address] Feb, [facility] [address] [id number] [address] [place] [address], [place] [address] Feb, [facility] [address] [id number] [address] [place] [address], [place] [address] Feb, [facility] [address] [id number] [address] [place] [address], [place] [address] Jan, [facility] [address] [id number] [address] [place] [address], [place] [address] 24 Jan, 2013 [facility] [address] [id number] [address] [place] [address], [place] [address] Jan, [facility] [address] [id number] [address] [place] [address], [place] [address] Jan, [facility] [address] [id number] [address] [place] [address], [place] [address] 08 Jan, 2013 [facility] [address] [id number] [address] [place] [address], [place] [address] 04 Jan, 2013 [facility] [address] [id number] [address] [place] [address], [place] [address] 12 Dec, 2012 [facility] [address] [id number] [address] [place] [address] 09 Dec, 2012 [facility] [address] [id number] [address] [place] [address], [place] [address] Nov, [facility] [address] [id number] [address] [place] [address], [place] [address] Nov, [facility] [address] [id number] [address] [place] [address], [place] [address] Oct, [facility] [address] [id number] [address] [place] [address], [place] [address] Oct, [facility] [address] [id number] [address] [place] [address], [place] [address] Oct, [facility] [address] [id number] [address] [place] [address], [place] [address] Oct, [facility] [address] [id number] [address] [place] [address], [place] [address] Oct, [facility] [address] [id number] [address] [place] [address], [place] [address] Oct, [facility] [address] [id number] [address] [place] [address], [place] [address] Sep, [facility] [address] [id number] [address] [place] [address], [place] [address] Sep, [facility] [address] [id number] [address] [place] [address], [place] [address] Sep, [facility] [address] [id number] [address] [place] [address], [place] [address] Sep, [facility] [address] [id number] [address] [place] [address], [place] [address] August, [facility] [address] [id number] [address] [place] [address], [place] [address] August, [facility] [address] [id number] [address] [place] [address], [place] [address] August, [facility] [address] [id number] [address] [address] August, [facility] [address] [id number] [address] [place] [address], [place] [address] August, [facility] [address] [id number] [address] [place] [address], [place] [address] Jul, [facility] [address] [id number] [address] [place] [address], [place] [address] Jul, [facility] [address] [id number] [address] [place] [address], [place] [address] Jul, [facility] [address] [id number] [address] [place] [address], [place] [address] Jul, [facility] [address] [id number] [address] [place] [address], [place] [address] Jul, [facility] [address] [id number] [address] [place] [address], [place] [address] Jul, [facility] [address] [id number] [address] [place] [address], [place] [address] Jul, [facility] [address] [id number] [address] [place] [address], [place] [address] Jul, [facility] [address] [id number] [address] [place] [address], [place] [address] Jul, [facility] [address] [id number] [address] [place] [address] Jul, [facility] [address] [id number] [place] [address] S [id number] Jun, [facility] [address] [id number] [address] [place] [address], [place] [address] Jun, [facility] [address] [id number] [address] [place] [address], [place] [address] Jun, [facility] [address] [id number] [address] [place] [address], [place] [address] Jun, [facility] [address] [id number] [address] [place] [address], [place] [address] Jun, [facility] [address] [id number] [address] [place] [address], [place] [address] May, [facility] [address] [id number] [address] [place] [address], [place] [address] 18 May, 2012 [facility] [address] [id number] [address] [place] [address], [place] [address] May, [facility] [address] [id number] [address] [place] [address], [place] [address] Apr, [facility] [address] [id number] [address] [place] [address], [place] [address] Apr, [facility] [address] [id number] [address] [place] [address], [place] [address] Apr, [facility] [address] [id number] [address] [place] [address], [place] [address] Apr, [facility] [address] [id number] [address] [place] [address], [place] [address] Apr, [facility] [address] [id number] [address] [place] [address], [place] [address] Apr, [facility] [address] [id number] [address] [place] [address], [place] [address] Mar, [facility] [address] [id number] [address] [place] [address], [place] [address] Mar, [facility] [address] [id number] [address] [place] [address], [place] [address] Mar, [facility] [address] [id number] [address] [place] [address], [place] [address] Mar, [facility] [address] [id number] [address] [place] [address], [place] [address] Feb, [facility] [address] [id number] [address] [place] [address], [place] [address] Feb, [facility] [address] [id number] [address] [place] [address], [place] [address] Feb, [facility] [address] [id number] [address] [place] [address], [place] [address] Feb, [facility] [address] [id number] [address] [place] [address], [place] [address] Feb, [facility] [address] [id number] [address] [place] [address], [place] [address] Feb, [facility] [address] [id number] [address] [place] [address], [place] [address] Feb, [facility] [address] [id number] [address] [place] [address], [place] [address] Feb, [facility] [address] [id number] [address] [place] [address], [place] [address] Feb, [facility] [address] [id number] [address] [place] [address], [place] [address] Feb, [facility] [address] [id number] [address] [place] [address], [place] [address] Feb, [facility] [address] [id number] [address] [place] [address] Feb, [facility] [address] [id number] [address] [place] [address] Feb, [facility] [address] [id number] [address] [place] [address] Feb, [facility] [address] [id number] [address] [place] [address], [place] [address] Feb, [facility] [address] [id number] [address] [place] [address] Feb, [facility] [address] [id number] [address] [place] [address] Jan, [facility] [address] [id number] [address] [place] [address] 31 Jan, 2012 [facility] [address] [id number] [address] [place] [address], [place] [address] 31 Jan, 2012 [facility] [address] [id number] [address] [place] [address] 31 Jan, 2012 [facility] [address] [id number] [address] [place] [address], [place] [address] 30 Jan, 2012 [facility] [address] [id number] [address] [place] [id number] Jan, [facility] [address] [id number] [address] [place] [address], [place] [address] 25 Jan, 2012 [facility] [address] [id number] [address] [place] [address] 16 Jan, 2012 [facility] [address] [id number] [address] [place] [address] 16 Jan, 2012 [facility] [address] [id number] [address] [place] [id number] 15 Jan, 2012 [facility] [address] [id number] [address] [place] [id number] 15 Jan, 2012 [facility] [address] [id number] [address] [place] [address] Jan, [facility] [address] [id number] [address] [place] [id number] 26 Sep, 2011 [facility] [address] [id number] [address] [place] [address] 26 Sep, 2011 [facility] [address] [id number] [address] [place] [address] 24 Sep, 2011 [facility] [address] [id number] [address] [place] [id number] 23 Sep, 2011 [facility] [address] [id number] [address] [place] [address], [place] [address] 22 Sep, 2011 [facility] [address] [id number] [address] [place] [address], [place] [address] 21 Sep, 2011 [facility] [address] [id number] [address] [place] [address], [place] [address] 20 Sep, 2011 [facility] [address] [id number] [address] [place] [address], [place] [address] 20 Dec, 2011 [facility] [address] [id number] [address] [place] [address], [place] [address] 07 Sep, 2011 [facility] [address] [id number] [address] [place] [address], [place] [address] 06 Sep, 2011 [facility] [address] [id number] [address] [place] [address], [place] [address] 06 Sep, 2011 [facility] [address] [id number] [address] [place] [address], [place] [id number] 05 Dec, 2011 [facility] [address] [id number] [address] [place] [address], [place] [id number] 23 Nov, 2011 [facility] [address] [id number] [address] [place] [address], [place] [id number] 17 Nov, 2011 [facility] [address] [id number] [address] [place] [address], [place] [address] 13 Nov, 2011 [facility] [address] [id number] [address] [place] [address], [place] [address] Nov, [facility] [address] [id number] [address] [place] [address], [place] [address] Nov, [facility] [address] [id number] [address] [place] [address], [place] [address] Nov, [facility] [address] [id number] [address] [place] [address], [place] [address] Nov, [facility] [address] [id number] [address] [place] [address], [place] [address] Nov, [facility] [address] [id number] [address] [place] [address], [place] [address] Oct, [facility] [address] [id number] [address] [place] [address], [place] [address] Oct, [facility] [address] [id number] [address] [place] [address], [place] [address] Oct, [facility] [address] [id number] [address] [place] [address], [place] [address] Oct, [facility] [address] [id number] [address] [place] [address], [place] [address] Oct, [facility] [address] [id number] [address] [place] [address], [place] [address] Oct, [facility] [address] [id number] [address] [place] [address], [place] [address] Oct, [facility] [address] [id number] [address] [place] [address], [place] [address] Sep, [facility] [address] [id number] [address] [place] [address], [place] [address] Sep, [facility] [address] [id number] [address] [place] [address], [place] [id number] August, [facility] [address] [id number] [address] [place] [address], [place] [id number] August, [facility] [address] [id number] [address] [place] [address], [place] [address] August, [facility] [address] [id number] [address] [place] [address], [place] [id number] August, [facility] [address] [id number] [address] [place] [address], [place] [address] Jul, [facility] [address] [id number] [address] [place] [address], [place] [address] Jul, [facility] [address] [id number] [address] [place] [address], [place] [address] Jul, [facility] [address] [id number] [address] [place] [address], [place] [address] 05 Jul, 2011 [facility] [address] [id number] [address] [place] [address], [place] [address] 04 Jul, 2011 [facility] [address] [id number] [address] [place] [address], [place] [address] 04 Jul, 2011 [facility] [address] [id number] [address] [place] [address], [place] [address] Jul, [facility] [address] [id number] [address] [place] [address], [place] [address] Jul, [facility] [address] [id number] [address] [place] [address], [place] [address] Jul, [facility] [address] [id number] [address] [place] [address], [place] [address] 23 Jun, 2011 [facility] [address] [id number] [address] [place] [address], [place] [address] 19 Jun, 2011 [facility] [address] [id number] [address] [place] [address], [place] [address] 15 Jun, 2011 [facility] [address] [id number] [address] [place] [address], [place] [address] 14 Jun, 2011 [facility] [address] [id number] [address] [place] [address], [place] [address] Jun, [facility] [address] [id number] [address] [place] [address], [place] [address] Jun, [facility] [address] [id number] [address] [place] [address], [place] [address] Jun, [facility] [address] [id number] [address] [place] [address], [place] [address] May, [facility] [address] [id number] [address] [place] [address], [place] [address] 24 May, 2011 [facility] [address] [id number] [address] [place] [address], [place] [address] 16 May, 2011 [facility] [address] [id number] [address] [place] [address], [place] [address] May, [facility] [address] [id number] [address] [place] [address], [place] [address] May, [facility] [address] [id number] [address] [place] [address], [place] [id number] Apr, [facility] [address] [id number] [address] [place] [address], [place] [address] Apr, [facility] [address] [id number] [address] [place] [address], [place] [address] Apr, [facility] [address] [id number] [address] [place] [address], [place] [address] Apr, [facility] [address] [id number] [address] [place] [address], [place] [address] Apr, [facility] [address] [id number] [address] [place] [address], [place] [address] Mar, [facility] [address] [id number] [address] [place] [address], [place] [address] Mar, [facility] [address] [id number] [address] [place] [address], [place] [address] Mar, [facility] [address] [id number] [address] [place] [address], [place] [address] Mar, [facility] [address] [id number] [address] [place] [address], [place] [address] Mar, [facility] [address] [id number] [address] [place] [address], [place] [address] Mar, [facility] [address] [id number] [address] [place] [address], [place] [address] Mar, [facility] [address] [id number] [address] [place] [address], [place] [address] Feb, [facility] [address] [id number] [address] [place] [address], [place] [address] Feb, [facility] [address] [id number] [address] [place] [address], [place] [address] Feb, [facility] [address] [id number] [address] [place] [address], [place] [address] Feb, [facility] [address] [id number] [address] [place] [address], [place] [address] Jan, [facility] [address] [id number] [address] [place] [address], [place] [address] Jan, [facility] [address] [id number] [address] [place] [address], [place] [address] Jan, [facility] [address] [id number] [address] [place] [address], [place] [address] Jan, [facility] [address] [id number] [address] [place] [address], [place] [address] Nov, [facility] [address] [id number] [address] [place] [address], [place] [id number] Mar, [facility] [address] [id number] [address] [place] [address], [place] [address] Mar, [facility] [address] [id number] [address] [place] [address], [place] [address] Mar, [facility] [address] [id number] [address] [place] [address], [place] [address] Mar, [facility] [address] [id number] [address] [place] [address], [place] [address] Mar, [facility] [address] [id number] [address] [place] [address], [place] [address] Mar, [facility] [address] [id number] [address] [place] [address], [place] [address] Feb, [facility] [address] [id number] [address] [place] [address], [place] [address] Feb, [facility] [address] [id number] [address] [place] [id number] 28 Jan, 2009 [facility] [address] [facility] [id number] [address] [place] [id number] Jan, [facility] [address] [facility] [id number] [address] [place] [id number] Jan, IMMUNIZATIONS No Known Immunizations SOCIAL HISTORY [...] History CPAP Noncompliance_ Dr. Madden advises a [employer] driving. Medical History Bacterial meningitis 12/2016 Medical [...] 09-2015 & 2007 Surgical History Bladder surgery [facility] 03/2016 Surgical History Neurotransmitter placed 10/2017 Surgical History retninal repair 12/31/2017 Surgical History cataract surgery 2018 Surgical History cataract surgery 2019 Surgical History SCS trial x7 days 2019 Surgical History SCS implant removed. 2019 Hospitalization History Surgeries Only Hospitalization History bacterial meningitis December 2016 Hospitalization History [facility] psych for SI 1988 Hospitalization History [facility]-Altered mental status 05/2017 Hospitalization History sepsis, UTI, headache 08/03/2018-
--- OUTSIDE RECORDS SUMMARY | 2019-08-01 10:08 | XMS REPORT ---
Author Author Jah Lola Doctor Organization [facility] Address Unknown Phone Unavailable Care Team Providers Care Manifest/Order Organizer Print Orders Name Role Phone Migration, Doctor Unavailable Unavailable PROBLEMS Type Condition ICD9-CM Code FUQ21-UH Code Onset Dates Condition S tatus SNOMED Code Problem Low back pain M54.5 Active 016043 009 Problem Hypothyroid E03.9 Active 46349540 Problem Generalized anxiety disorder F41.1 A ctive 91551399 Problem Asthma J45.909 Active 851551613 Problem Insomnia G47.00 Active 481771335 Problem Fibromyalgia M79.7 Active 0568679 05 Problem Palpitations R00.2 Active 5395893 2 Problem Primary osteoarthritis of left knee M17.12 Active 597982246 Problem Stage 3 chronic kidney disease N18.3 Active 736084775 Problem Body mass index (BMI) of 40.0-44.9 in adult Z68.41 Active 495576742 Problem Major depressive disorder, recurrent, moderate F33 .1 Active 331549152 Problem Essential (primary) hypertension I10 Active 95801167 Problem 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 [id number] [address] [place] [phone] Jan, [facility], [place] [address] [facility] [id number] [address] [place] [phone] Dec, [facility], [place] [address] [facility] [id number] [address] [place] [phone] Dec, [facility], [place] [address] [facility] [id number] [address] [place] [phone] Dec, [facility], [place] [address] [facility] [id number] [address] [place] [phone] Dec, [facility], [place] [address] [facility] [id number] [address] [place] [phone] Dec, Encounter for immunization Z 23 [facility], [place] [address] [facility] [id number] [address] [place] [phone] Dec, Diarrhea, unspecified type R 19.7 and Hemorrhoids, unspecified hemorrhoid type K64.9 [facility], [place] [address] [facility] [id number] [address] [place] [phone] Dec, Encounter for Medicare annua l wellness exam Z00.00 ; Chronic kidney disease, stage 4 (severe) N18.4 ; Encounter for immunization Z23 ; Major depressive disorder, recurrent, moderate F33.1 ; Atherosclerosis of fl[place]reau coronary artery of [place] heart with angina pectoris I25.119 ; Asthma J45.909 ; Hypothyroid E03.9 and Fibromyalgia M79.7 [facility], [place] [address] [facility] [id number] [address] [place] [phone] Dec, Chronic pain syndrome G89.4 [place] [id number] [place] [id number] [address] [place] [phone] Nov, Major depressive disorder, r ecurrent, moderate F33.1 ; Generalized anxiety disorder F41.1 and Dysthymic disorder F34.1 [facility], [place] [address] [facility] [id number] [address] [place] [phone] Nov, [facility], [place] [address] [facility] [id number] [address] [place] [phone] Nov, Chronic pain syndrome G89.4 [facility], [place] [address] [facility] [id number] [address] [place] [phone] Nov, Restless leg syndrome G25.81 [place] [address] [facility] [id number] [address] [place] [phone] Nov, Pain in right shoulder M25.5 11 ; Restless leg syndrome G25.81 ; Other chronic pain G89.29 ; Screening for breast cancer Z12.39 ; Insomnia G47.00 and Morbid obesity E66.01 [facility], [place] [address] [id number] [address] [place] [phone] Nov, [facility], [place] [address] [id number] [address] [place] [phone] Oct, Major depressive disorder, r ecurrent, moderate F33.1 ; Generalized anxiety disorder F41.1 and Dysthymic disorder F34.1 [facility], [place] [address] [id number] [address] [place] [phone] Oct, [facility], [place] [address] [id number] [address] [place] [phone] Oct, Cellulitis of left lower ext remity L03.116 and Morbid obesity E66.01 [facility] [address] [id number] [address] [place] [phone] Oct, [facility], [place] [address] [id number] [address] [place] [phone] Oct, [facility], [place] [address] [facility] [id number] [address] [place] [phone] Oct, Generalized anxiety disorder F41.1 and Major depressive disorder, recurrent episode with anxious distress F33.9 [facility] [address] [id number] [address] [place] [phone] Oct, [facility], [place] [address] [id number] [address] [place] [phone] Oct, Chronic pain syndrome G89.4 [facility], [place] [address] [id number] [address] [place] [phone] Oct, Chronic pain syndrome G89.4 [facility] [address] [facility] [id number] [address] [place] [phone] Oct, UTI symptoms R39.9 ; Acute c ystitis without hematuria N30.00 and Morbid obesity E66.01 [facility], [place] [address] [facility] [id number] [address] [place] [phone] Oct, [facility], [place] [address] [facility] [id number] [address] [place] [phone] Oct, Chronic pain syndrome G89.4 [facility], [place] [address] [facility] [id number] [address] [place] [phone] Sep, [facility], [place] [address] [facility] [id number] [address] [place] [phone] Sep, Generalized anxiety disorder F41.1 and Major depressive disorder, recurrent episode with anxious distress F33.9 [facility], [place] [address] [facility] [id number] [address] [place] [phone] Sep, Chronic kidney disease, 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 [facility], [place] [address] [facility] [id number] [address] [place] [phone] Sep, Fibromyalgia M79.7 and Chron ic pain syndrome G89.4 [facility], [place] [address] [facility] [id number] [address] [place] [phone] Sep, [address] [phone] Sep, Chronic pain syndrome G89.4 [facility], [place] [address] [facility] [id number] [address] [place] [phone] Sep, [facility], [place] [address] [facility] [id number] [address] [place] [phone] Sep, Chronic pain syndrome G89.4 ; Fibromyalgia M79.7 and Morbid obesity E66.01 [facility], [place] [address] [facility] [id number] [address] [place] [phone] August, Generalized anxiety disorder F41.1 and Major depressive disorder, recurrent episode with anxious distress F33.9 [facility], [place] [address] [facility] [id number] [address] [place] [phone] August, Fibromyalgia M79.7 [facility], [place] [address] [id number] [address] [place] [phone] August, Restless leg syndrome G25.81 ; Vitamin D deficiency E55.9 ; Urinary tract infection without hematuria, site unspecified N39.0 ; Pain in right shoulder M25.511 ; Other chronic pain G89.29 ; Biceps tendinitis on right M75.21 and Morbid obesity E66.01 [facility], [place] [address] [facility] [id number] [address] [place] [phone] Jul, Urinary tract infection with out hematuria, site unspecified N39.0 and Morbid obesity E66.01 [place] [address] [facility] [id number] [address] [place] [phone] Jul, [place] [address] [facility] [id number] [address] [place] [phone] Jul, [place] [address] [facility] [id number] [address] [place] [phone] Jul, Fibromyalgia M79.7 [place] [address] [facility] [id number] [address] [place] [phone] Jul, Acute pain of right shoulder M25.511 [place] [address] [facility] [id number] [address] [place] [phone] Jul, Acute pain of right shoulder M25.511 and Morbid obesity E66.01 [place] [address] [facility] [id number] [address] [place] [phone] Jun, [place] [address] [facility] [id number] [address] [place] [phone] Jun, Generalized anxiety disorder F41.1 and Major depressive disorder, recurrent episode with anxious distress F33.9 [place] [address] [facility] [id number] [address] [place] [phone] Jun, [facility], [place] [address] [facility] [id number] [address] [place] [phone] Jun, Fibromyalgia M79.7 [facility] [address] [facility] [id number] [address] [place] [phone] 04 Jun, 2018 Acute pain of right shoulder M25.511 ; Acute pain of right hip M25.551 and Morbid obesity E66.01 [facility], [place] [address] [facility] [id number] [address] [place] [phone] 11 May, 2018 Burning with urination R30.0 ; Vaginal discharge N89.8 ; Chronic kidney disease, stage 4 (severe) N18.4 ; Body mass index (BMI) of 40.0-44.9 in adult Z68.41 and Morbid obesity E66.01 [facility], [place] [address] [facility] [id number] [address] [place] [phone] 07 May, 2018 Fibromyalgia M79.7 [place] [address] [place] [id number] [address] [place] [phone] 06 May, 2018 Generalized anxiety disorder F41.1 and Major depressive disorder, recurrent episode with anxious distress F33.9 [facility], [place] [address] [place] [id number] [address] [place] [phone] Apr, [facility], [place] [address] [place] [id number] [address] [place] [phone] Apr, Fibromyalgia M79.7 [facility] [address] [facility] [id number] [address] [place] [phone] 14 Mar, 2018 Acute UTI N39.0 and Dysuria R30.0 [facility], [place] [address] [facility] [id number] [address] [place] [phone] Mar, Fibromyalgia M79.7 [facility], [place] [address] [facility] [id number] [address] [place] [phone] Feb, [facility], [place] [address] [place] [id number] [address] [place] [phone] Feb, [facility], [place] [address] [place] [id number] [address] [place] [phone] Feb, [facility], [place] [address] [place] [id number] [address] [place] [phone] Feb, Fibromyalgia M79.7 [facility], [place] [address] [id number] [address] [place] [phone] 08 Feb, 2018 Complicated UTI (urinary tra ct infection) N39.0 [facility], [place] [address] [id number] [address] [place] [phone] Feb, [facility], [place] [address] [facility] [id number] [address] [place] [phone] Jan, Generalized anxiety disorder F41.1 and Major depressive disorder, recurrent episode with anxious distress F33.9 [facility] [address] [facility] [id number] [address] [place] [phone] Jan, Acute conjunctivitis of left eye, unspecified acute conjunctivitis type H10.32 [facility], [place] [address] [facility] [id number] [address] [place] [phone] Jan, [facility], [place] [address] [facility] [id number] [address] [place] [phone] Jan, Acute non-recurrent maxillar y sinusitis J01.00 ; Dysuria R30.0 ; Perimenopausal vasomotor symptoms N95.1 and Fibromyalgia M79.7 [facility], [place] [address] [facility] [id number] [address] [place] [phone] 28 Dec, 2017 Vitamin D deficiency E55.9 [facility], [place] [address] [facility] [id number] [address] [place] [phone] 27 Dec, 2017 Vitamin D deficiency E55.9 [facility], [place] [address] [facility] [id number] [address] [place] [phone] 24 Dec, 2017 Vitamin D deficiency E55.9 [facility], [place] [address] [facility] [id number] [address] [place] [phone] 12 Dec, 2017 [facility], [place] [address] [facility] [id number] [address] [place] [phone] 10 Dec, 2017 Fibromyalgia M79.7 [facility], [place] [address] [id number] [address] [place] [phone] Nov, [facility], [place] [address] [id number] [address] [place] [phone] Nov, [facility], [place] [address] [id number] [address] [place] [phone] Nov, [facility], [place] [address] [id number] [address] [place] [phone] Nov, Fibromyalgia M79.7 ; Vision changes H53.9 ; Chest wall pain R07.89 and Chronic pain syndrome G89.4 [facility], [place] [address] [id number] [address] [place] [phone] Nov, [facility], [place] [address] [id number] [address] [place] [phone] Nov, Rash of hands R21 [facility], [place] [address] [id number] [address] [place] [phone] Nov, Generalized anxiety disorder F41.1 and Major depressive disorder, recurrent episode with anxious distress F33.9 [facility], [place] [address] [id number] [address] [place] [phone] Nov, Fibromyalgia M79.7 [facility], [place] [address] [id number] [address] [place] [phone] Nov, Complicated UTI (urinary tra ct infection) N39.0 [facility], [place] [address] [id number] [address] [place] [phone] Oct, [facility], [place] [address] [id number] [address] [place] [phone] Oct, Generalized anxiety disorder F41.1 and Major depressive disorder, recurrent episode with anxious distress F33.9 [facility], [place] [address] [id number] [address] [place] [id number] Oct, [facility], [place] [address] [id number] [address] [place] [phone] Oct, Fibromyalgia M79.7 [facility], [place] [address] [id number] [address] [place] [phone] Sep, Restless leg syndrome G25.81 and Restless leg G25.81 [facility], [place] [address] [facility] [id number] [address] [place] [phone] Sep, [facility], [place] [address] [facility] [id number] [address] [place] [phone] Sep, Seasonal allergic rhinitis d ue to pollen J30.1 ; Screening for breast cancer Z12.31 ; Chest pain at rest R07.9 ; Restless leg syndrome G25.81 ; Essential (primary) hypertension I10 and Depressed F32.9 [place] [address] [facility] [id number] [address] [place] [phone] August, Fibromyalgia M79.7 [place] [id number] [facility] [id number] [address] [place] [phone] August, [place] [address] [facility] [id number] [address] [place] [phone] August, [facility] [place] [address] [facility] [id number] [address] [place] [phone] August, Abnormal chest CT R93.8 [place] [address] [facility] [id number] [address] [place] [phone] August, Generalized anxiety disorder F41.1 and Major depressive disorder, recurrent episode with anxious distress F33.9 [place] [id number] [facility] [id number] [address] [place] [phone] August, Abnormal chest CT R93.8 [place] [id number] [facility] [id number] [address] [place] [phone] Jul, [place] [address] [facility] [id number] [address] [place] [phone] Jul, Chronic kidney disease, 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 [facility] [place] [address] [facility] [id number] [address] [place] [phone] Jul, [facility] [place] [address] [facility] [id number] [address] [place] [phone] Jul, Restless leg G25.81 ; Mixed stress and urge urinary incontinence N39.46 and Fibromyalgia M79.7 [facility] [place] [address] [facility] [id number] [address] [place] [phone] Jul, Chronic kidney disease, 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 [facility] [place] [address] [facility] [id number] [address] [place] [phone] Jun, Orthostatic hypotension I95. 1 ; Chronic kidney disease, stage 4 (severe) N18.4 ; Chest wall discomfort R07.89 and Body mass index (BMI) of 40.0- 44.9 in adult Z68.41 [place] [address] [place] [id number] [address] [place] [phone] Jun, [facility] [place] [address] [place] [id number] [address] [place] [phone] Jun, Orthostatic hypotension I95. 1 [facility], [place] [address] [place] [id number] [address] [place] [phone] Jun, [facility] [address] [facility] [id number] [address] [place] [phone] Jun, Orthostatic hypotension I95. 1 ; Dysuria R30.0 and Acute cystitis without hematuria N30.00 [facility] [place] [address] [facility] [id number] [address] [place] [id number] Jun, [facility], [place] [address] [place] [id number] [address] [place] [phone] Jun, Chronic kidney disease, 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 [facility], [place] [address] [place] [id number] [address] [place] [id number] Jun, Fibromyalgia M79.7 [facility], [place] [address] [place] [id number] [address] [place] [id number] Jun, [facility], [place] [address] [id number] [address] [place] [id number] Jun, [facility], [place] [address] [id number] [address] [place] [id number] May, Abnormal chest [address] R93.8 and Stage 3 chronic kidney disease N18.3 [facility], [place] [address] [id number] [address] [place] [id number] May, Chronic kidney disease, 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 [facility], [place] [address] [id number] [address] [place] [phone] May, Chronic kidney disease, 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 [facility], [place] [address] [id number] [address] [place] [id number] May, Abnormal chest [address] R93.8 [facility], [place] [address] [id number] [address] [place] [phone] May, [facility], [place] [address] [id number] [address] [place] [id number] May, [facility], [place] [address] [id number] [address] [place] [address] [address] May, Generalized anxiety disorder F41.1 and Major depressive disorder, recurrent episode with anxious distress F33.9 [facility], [place] [address] [id number] [address] [place] [phone] May, Mood disorder F39 [facility] [place] [address] [id number] [address] [place] [id number] Apr, [facility] [place] [address] [id number] [address] [place] [phone] Apr, Infected skin lesion L08.9 a nd Muscle strain of right shoulder region, initial encounter S46.911A [facility], [place] [address] [facility] [id number] [address] [place] [phone] Apr, Generalized anxiety disorder F41.1 and Major depressive disorder, recurrent episode with anxious distress F33.9 [facility] [place] [address] [id number] [address] [place] [id number] Apr, [facility] [place] [address] [facility] [id number] [address] [place] [address] Apr, Recent urinary tract infecti on Z87.440 and Hypothyroid E03.9 [facility] [place] [address] [id number] [address] [place] [address] Apr, Generalized anxiety disorder F41.1 and Major depressive disorder, recurrent episode with anxious distress F33.9 [place] [place] [address] [id number] [address] [place] [address] Apr, Recent urinary tract infecti on Z87.440 [place] [address] [facility] [id number] [address] [place] [phone] Mar, [facility] [address] [facility] [id number] [address] [place] [phone] Mar, Dysuria R30.0 ; Acute cystit is without hematuria N30.00 and BMI 40.0-44.9, adult Z68.41 [place] [address] [facility] [id number] [address] [place] [phone] Mar, [place] [id number] [facility] [id number] [address] [place] [phone] Mar, [place] [address] [facility] [id number] [address] [place] [phone] Mar, Generalized anxiety disorder F41.1 and Major depressive disorder, recurrent episode with anxious distress F33.9 [place] [address] [facility] [id number] [address] [place] [id number] Feb, Conjunctivitis, bacterial H1 0.9 [place] [id number] [id number] [address] [place] [phone] Feb, [facility] [address] [facility] [id number] [address] [place] [phone] Feb, Conjunctivitis, bacterial H1 0.9 [facility], [place] [address] [facility] [id number] [address] [place] [id number] Feb, [facility] [address] [facility] [id number] [address] [place] [id number] Feb, Dysuria R30.0 ; Acute cystit is N30.00 and BMI 40.0-44.9, adult Z68.41 [facility], [place] [address] [place] [id number] [address] [place] [phone] Feb, [facility] [place] [address] [place] [id number] [place] [phone] Feb, Generalized anxiety disorder F41.1 and Major depressive disorder, recurrent episode with anxious distress F33.9 [place] [address] [place] [id number] [place] [phone] Feb, Mood disorder F39 and BMI 40 .0-44.9, adult Z68.41 [facility], [place] [address] [place] [id number] [address] [place] [phone] Jan, [facility], [place] [address] [place] [id number] [place] [phone] Jan, [facility] [place] [address] [place] [id number] [place] [phone] Jan, Hypothyroid E03.9 [facility], [place] [address] [place] [id number] [address] [place] [phone] Jan, [facility] [place] [address] [place] [id number] [place] [phone] Jan, Chronic kidney disease, unsp ecified N18.9 ; Hypokalemia E87.6 ; Essential (primary) hypertension I10 ; Fibromyalgia M79.7 ; Coronary artery disease involving flandreau coronary artery of flandreau heart, angina presence unspecified I25.10 ; Hypothyroid E03.9 and Encounter for immunization Z23 [facility], [place] [address] [place] [id number] [place] [address] [place] [address] 04 Jan, 2017 Hypothyroid E03.9 [facility], [place] [address] [id number] [address] [place] [id number] 02 Jan, 2017 [facility] [place] [address] [id number] [address] [place] [id number] 28 Dec, 2016 Vitamin D deficiency E55.9 [facility] [place] [address] [id number] [address] [place] [id number] 28 Dec, 2016 Primary osteoarthritis of le ft knee M17.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 [facility], [place] [address] [id number] [address] [place] [id number] 19 Dec, 2016 Fibromyalgia M79.7 [facility] [place] [address] [id number] [address] [place] [id number] 18 Dec, 2016 Mood disorder F39 [facility] [place] [address] [id number] [address] [place] [phone] 13 Dec, 2016 [facility] [place] [address] [id number] [address] [place] [phone] 13 Dec, 2016 Generalized anxiety disorder F41.1 and Major depressive disorder, recurrent episode with anxious distress F33.9 [facility] [place] [address] [id number] [address] [place] [id number] 11 Dec, 2016 [facility] [place] [address] [id number] [address] [place] [phone] 08 Dec, 2016 Streptococcal meningitis G00 .2 [facility] [place] [address] [id number] [address] [place] [id number] 07 Dec, 2016 Streptococcal meningitis G00 .2 [facility] [place] [address] [id number] [address] [place] [id number] 07 Dec, 2016 [facility] [place] [address] [id number] [address] [place] [id number] 06 Dec, 2016 Streptococcal meningitis G00 .2 [facility] [place] [address] [id number] [address] [place] [phone] Dec, [facility], [place] [address] [facility] [id number] [address] [place] [id number] Dec, Major depressive disorder, r ecurrent episode with anxious distress F33.9 [facility], [place] [address] [facility] [id number] [address] [place] [phone] Nov, Fever, unspecified fever cau se R50.9 [facility], [place] [address] [facility] [id number] [address] [place] [phone] Nov, [facility], [place] [address] [facility] [id number] [place] [phone] Nov, Hypothyroid E03.9 [facility], [place] [address] [place] [id number] [place] [phone] Nov, Generalized anxiety disorder F41.1 and Major depressive disorder, recurrent episode with anxious distress F33.9 [facility], [place] [id number] [place] [phone] Nov, [facility] [address] [facility] [id number] [address] [place] [id number] Oct, Dental examination Z01.20 [facility], [place] [address] [place] [id number] [address] [place] [phone] Oct, Generalized anxiety disorder F41.1 and Major depressive disorder, recurrent episode with anxious distress F33.9 [facility], [place] [address] [place] [id number] [address] [place] [phone] Oct, Chronic kidney disease, 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 [facility], [place] [address] [place] [id number] [address] [place] [phone] Oct, [facility] [place] [address] [place] [id number] [address] [place] [phone] Oct, Fibromyalgia M79.7 [facility], [place] [address] [place] [id number] [address] [place] [phone] Oct, [place] [address] [facility] [id number] [address] [place] [phone] Oct, Generalized anxiety disorder F41.1 ; Major depressive disorder, recurrent episode with anxious distress F33.9 and Bipolar disorder, current episode manic without psychotic features F31.10 [place] [address] [place] [id number] [address] [place] [phone] Sep, [place] [address] [place] [id number] [address] [place] [phone] Sep, [place] [address] [place] [id number] [address] [place] [phone] Sep, Vitamin D deficiency E55.9 [place] [address] [place] [id number] [address] [place] [phone] Sep, Vitamin D deficiency E55.9 [place] [address] [address] Sep, [place] [address] [place] [id number] [address] [place] [phone] Sep, Chronic kidney disease, 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 ; Hypothyroid E03.9 ; Restless leg G25.81 ; Fibromyalgia M79.7 ; Essential (primary) hypertension I10 ; Vitamin D deficiency E55.9 ; Dyspepsia R10.13 ; Anemia in chronic kidney disease D63.1 ; Chronic kidney disease, unspecified N18.9 ; Coronary artery disease involving flandreau coronary artery of flandreau heart, angina presence unspecified I25.10 ; Screening breast examination Z12.39 and Low back pain M54.5 [place] [address] [place] [id number] [address] [place] [phone] August, Generalized anxiety disorder F41.1 and Major depressive disorder, recurrent episode with anxious distress F33.9 [place] [address] [place] [id number] [address] [place] [phone] August, Generalized anxiety disorder F41.1 and Major depressive disorder, recurrent episode with anxious distress F33.9 [place] [id number] [place] [phone] August, Fibromyalgia M79.7 [place] [address] [address] Jul, Generalized anxiety disorder F41.1 and Major depressive disorder, recurrent episode with anxious distress F33.9 [place] [address] [address] Jul, Fibromyalgia M79.7 [place] [address] [address] Jul, Generalized anxiety disorder F41.1 [place] [address] [address] May, [place] [address] [address] May, Hypothyroid E03.9 [place] [address] [address] May, Chronic kidney disease, 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 ; Hypothyroid E03.9 ; Restless leg G25.81 ; Fibromyalgia M79.7 ; Essential (primary) hypertension I10 ; Vitamin D deficiency E55.9 ; Dyspepsia R10.13 ; Acute non-recurrent maxillary sinusitis J01.00 ; Anemia in chronic kidney disease D63.1 ; Chronic kidney disease, unspecified N18.9 and Coronary artery disease involving flandreau coronary artery of flandreau heart, angina presence unspecified I25.10 [place] [address] [place] [id number] [address] [place] [phone] May, Vitamin D deficiency, unspec ified E55.9 [place] [address] [address] May, Generalized anxiety disorder F41.1 and Major depressive disorder, recurrent episode with anxious distress F33.9 [place] [address] [id number] Apr, Pain in right knee M25.561 a nd Pain in left knee M25.562 [facility], [place] [address] [facility] [id number] [address] [place] [phone] Apr, [facility], [place] [address] [id number] [address] [place] [phone] Apr, [facility] [place] [address] [facility] [id number] [address] [place] [phone] Apr, [facility] [place] [address] [id number] [address] [place] [id number] Mar, Generalized anxiety disorder F41.1 and Major depressive disorder, recurrent episode with anxious distress F33.9 [facility], [place] [address] [facility] [id number] [address] [place] [phone] Mar, Generalized anxiety disorder F41.1 and Major depressive disorder, recurrent episode with anxious distress F33.9 [facility] [place] [address] [facility] [id number] [address] [place] [phone] Mar, [facility] [place] [address] [facility] [id number] [address] [place] [phone] Mar, [facility] [place] [address] [facility] [id number] [address] [place] [phone] Mar, [facility] [place] [address] [facility] [id number] [address] [place] [phone] Mar, Asthma J45.909 and Fibromyal elvira M79.7 [facility], [place] [address] [facility] [id number] [address] [place] [phone] Mar, Chronic kidney disease, 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 ; Vitamin D deficiency E55.9 and Essential (primary) hypertension I10 [facility] [place] [address] [facility] [id number] [address] [place] [phone] Feb, [facility] [place] [address] [facility] [id number] [address] [place] [phone] Feb, Dysuria R30.0 ; Mixed stress and urge urinary incontinence N39.46 ; Fibromyalgia M79.7 and Chronic kidney disease, stage IV (severe) N18.4 [facility] [place] [address] [place] [id number] [address] [place] [phone] Feb, Chronic kidney disease, 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 [facility], [place] [address] [place] [id number] [address] [place] [id number] Feb, Chronic kidney disease, 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 [facility] [place] [address] [place] [id number] [address] [place] [phone] Feb, [place] [address] [place] [id number] [place] [phone] Feb, Vitamin D deficiency, unspec ified E55.9 [place] [address] [place] [id number] [place] [phone] Jan, [facility] [place] [address] [place] [id number] [place] [phone] Jan, [facility] [place] [address] [phone] Dec, [facility] [place] [address] [place] [id number] [place] [phone] Dec, Chronic kidney disease, 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 [facility], [place] [address] [place] [id number] [place] [phone] Dec, Dysthymic disorder F34.1 and Generalized anxiety disorder F41.1 [facility] [place] [address] [place] [id number] [place] [phone] Dec, [facility] [place] [address] [place] [id number] [place] [phone] Dec, [facility] [place] [address] [place] [id number] [place] [phone] Dec, Dysthymic disorder F34.1 and Generalized anxiety disorder F41.1 [facility] [place] [address] [place] [id number] [address] [place] [id number] 08 Dec, 2015 Dysuria R30.0 ; Chronic kidn ey disease, stage 4 (severe) N18.4 ; Hypertension I10 ; Dyspepsia R10.13 ; Yeast dermatitis B37.2 ; Palpitations R00.2 ; Hypothyroid E03.9 ; Functional diarrhea K59.1 and Other seasonal allergic rhinitis J30.2 [facility] [address] [address] Dec, [facility] [address] [address] Nov, Dysuria R30.0 and Stress inc ontinence N39.3 [facility] [place] [address] [address] Nov, [place] [id number] [address] Nov, [facility] [place] [address] [address] Nov, Osteoarthritis of knees, jose ateral M17.0 [facility] [place] [address] [address] Nov, Dysthymic disorder F34.1 and Generalized anxiety disorder F41.1 [place] [id number] [address] Nov, [place] [address] [place] [id number] [place] [phone] Nov, [place] [address] [address] Nov, Urgency of urination R39.15 [facility] [place] [address] [address] Nov, [place] [address] [place] [address] Nov, Chronic kidney disease, 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 [place] [address] [place] [id number] [place] [address] Oct, Hypertension I10 ; Coronary artery disease involving flandreau coronary artery of flandreau heart, angina presence unspecified I25.10 ; Palpitations R00.2 ; Hypothyroid E03.9 ; Right foot pain M79.671 ; Functional diarrhea K59.1 and Other seasonal allergic rhinitis J30.2 [place] [address] [place] [id number] [place] [phone] Oct, Dysthymic disorder F34.1 and Generalized anxiety disorder F41.1 [place] [address] [place] [id number] [place] [phone] Sep, [place] [address] [address] Sep, [place] [address] [place] [id number] [place] [phone] Sep, [place] [address] [address] Sep, [place] [address] [place] [id number] [place] [address] Sep, [place] [address] [place] [id number] [place] [phone] Sep, Dysthymic disorder F34.1 and Generalized anxiety disorder F41.1 [place] [address] [place] [id number] [place] [id number] 16 Sep, 2015 Asthma with acute exacerbati on in adult J45.901 ; Dysuria R30.0 ; Chronic kidney disease, stage 4 (severe) N18.4 and History of anemia Z86.2 [place] [address] [place] [id number] [place] [phone] 2015 Generalized anxiety disorder F41.1 and Dysthymic disorder F34.1 [place] [id number] [place] [id number] [place] [address] August, Screening breast examination Z12.39 and Acute recurrent maxillary sinusitis J01.01 [place] [address] [place] [id number] [place] [phone] August, Osteoarthritis of knees, jose ateral M17.0 [place] [address] [place] [id number] [place] [address] August, Chronic kidney disease, 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 ; Acute non- recurrent maxillary sinusitis J01.00 ; Urinary problem R39.89 ; Bowel habit changes R19.4 ; Functional diarrhea K59.1 and History of colon polyps Z86.010 [place] [address] [address] Jul, Dysthymic disorder F34.1 and Generalized anxiety disorder F41.1 [place] [address] [place] [address] Jul, [place] [address] [address] Jul, Dysthymic disorder F34.1 ; G eneralized anxiety disorder F41.1 and detention use of drug Z79.899 [place] [address] [place] [id number] [place] [phone] Jul, [place] [address] [place] [id number] [place] [phone] Jun, [place] [address] [place] [id number] [place] [phone] Jun, [place] [address] [place] [id number] [place] [id number] 17 May, 2015 [place] [address] [place] [id number] [place] [phone] May, Dysthymic disorder F34.1 and Generalized anxiety disorder F41.1 [place] [address] [place] [address] Apr, Kidney disease N28.9 [place] [address] [place] [id number] [place] [address] Apr, Generalized anxiety disorder F41.1 and Dysthymic disorder F34.1 [place] [address] [address] Apr, Chronic kidney disease, 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 [place] [address] [address] Apr, Generalized anxiety disorder F41.1 ; Major depression, recurrent F33.9 and Sleep disturbance G47.9 [place] [address] [address] Mar, Generalized anxiety disorder F41.1 and Dysthymic disorder F34.1 [place] [address] [address] Mar, Generalized anxiety disorder F41.1 ; Dysthymic disorder F34.1 and Insomnia G47.00 [place] [address] [address] Mar, [place] [address] [address] Mar, [place] [address] [address] Mar, Osteoarthritis of knees, jose ateral M17.[address] [address] Mar, Hypertension I10 ; Hypothyro id E03.9 ; Dysthymic disorder F34.1 ; Chronic kidney disease, stage 4 (severe) N18.4 and Nausea & vomiting R11.[address] [address] Mar, Generalized anxiety disorder F41.1 ; Dysthymic disorder F34.1 and Insomnia G47.00 [place] [address] [address] Mar, Dehydration E86.0 ; Chronic kidney disease, stage 4 (severe) N18.4 and Nausea & vomiting R11.2 [facility] [address] [address] Mar, Gastroenteritis K52.9 [facility], [place] [address] [address] Mar, [place] [address] [address] Mar, [place] [address] [address] Feb, Dysthymic disorder F34.1 and Generalized anxiety disorder F41.1 [facility], [place] [address] [address] Jan, UTI (urinary tract infection ) N39.0 ; Asthma J45.909 ; Coronary artery disease involving [place]reau coronary artery of [place]reau heart, angina presence unspecified I25.10 ; Hypertension I10 ; Hypothyroid E03.9 ; Vitamin D deficiency E55.9 ; Insomnia G47.00 ; Palpitations R00.2 ; Depressed F32.9 ; Restless leg G25.81 and Anxiety F41.9 [facility], [place] [address] [address] Jan, Dysthymic disorder F34.1 and Generalized anxiety disorder F41.1 [place] [address] [address] Jan, [place] [address] [address] Dec, [place] [address] [address] Dec, Alkalosis 276.3 ; Chronic ki dney disease, Stage IV (severe) 585.4 ; Hyperpotassemia 276.7 ; Secondary hyperparathyroidism, renal 588.81 ; Proteinuria 791.0 ; Unspecified vitamin D deficiency 268.9 ; Anemia in chronic kidney disease 285.21 ; Other and unspecified hyperlipidemia 272.4 ; Hypertension, essential, benign 401.1 and Chronic kidney disease (CKD), stage III (moderate) 585.3 [place] [address] [id number] Dec, [place] [id number] [place] [address] Dec, Depressive disorder, not els ewhere classified 311 and Generalized anxiety disorder 300.[address] [address] Dec, [address] [address] Dec, [place] [address] [address] Nov, Depressive disorder, not els ewhere classified 311 and Generalized anxiety disorder 300.02 [place] [id number] [address] [place] [id number] Nov, Arthritis of both knees 716. [address] [address] Nov, PAF (paroxysmal atrial fibri llation) 427.31 ; CAD (coronary artery disease) 414.00 ; Chest pain 786.50 and Chronic kidney disease (CKD) stage G4/A1, severely decreased glomerular filtration rate (GFR) between 15-29 mL/min/1.73 square meter and albuminuria creatinine ratio less than 30 mg/g 585.[address] [address] Oct, Coronary atherosclerosis of unspecified type of vessel, flandreau or graft 414.00 ; Chronic kidney disease, Stage IV (severe) 585.4 ; Hypertension 401.9 and Edema 782.3 [place] [address] [address] Oct, Depressive disorder, not els ewhere classified 311 and Generalized anxiety disorder 300.02 [facility] [place] [address] [address] Oct, Depressive disorder, not els ewhere classified 311 and Generalized anxiety disorder 300.02 [facility] [place] [address] [address] Oct, [place] [address] [address] Oct, [place] [address] [address] Sep, [place] [address] [address] Sep, Chronic kidney disease, Stag e IV (severe) 585.4 [place] [address] [address] Sep, [place] [address] [address] Sep, Coronary atherosclerosis of unspecified type of vessel, flandreau or graft 414.00 ; Hypertension 401.9 ; Edema 782.3 and Hypothyroidism 244.9 [place] [address] [address] Sep, Coronary atherosclerosis of unspecified type of vessel, flandreau or graft 414.00 ; Hypertension 401.9 ; Fibromyalgia 729.1 ; Edema 782.3 ; Hypothyroidism 244.9 and Anemia 285.9 [place] [address] [address] Sep, Anxiety disorder, unspecifie d 300.00 and Depressive disorder, not elsewhere classified 311 [facility] [place] [address] [address] Sep, [facility] [address] [id number] [address] [place] [id number] August, Generalized anxiety disorder 300.02 [facility] [address] [id number] [address] [place] [address] August, Closed fracture of lateral m alleolus 824.2 [facility] [address] [id number] [address] [place] [id number] Jul, [facility] [address] [id number] [address] [place] [phone] Jul, [facility] [address] [id number] [address] [place] [id number] Jun, [facility] [address] [id number] [address] [place] [id number] Jun, [facility] [address] [id number] [address] [place] [id number] Jun, [facility] [address] [id number] [address] [place] [id number] Jun, [facility] [address] [id number] [address] [place] [address] Jun, [facility] [address] [id number] [address] [place] [id number] Jun, [facility] [address] [id number] [address] [place] [id number] May, [facility] [address] [id number] [address] [place] [id number] May, [facility] [address] [id number] [address] [place] [id number] May, [facility] [address] [id number] [address] [place] [id number] May, [facility] [address] [id number] [address] [place] [id number] 16 May, 2014 [facility] [address] [id number] [address] [place] [address], [place] [address] 16 May, 2014 [facility] [address] [id number] [address] [place] [address], [place] [address] 13 May, 2014 [facility] [address] [id number] [address] [place] [address], [place] [address] 13 May, 2014 [facility] [address] [id number] [address] [place] [address], [place] [address] 10 May, 2014 [facility] [address] [id number] [address] [place] [address], [place] [address] May, 2014 [facility] [address] [id number] [address] [place] [address], [place] [address] Apr, [facility] [address] [id number] [address] [place] [address], [place] [address] Apr, [facility] [address] [id number] [address] [place] [address], [place] [address] Mar, [facility] [address] [id number] [address] [place] [address], [place] [address] Mar, [facility] [address] [id number] [address] [place] [address], [place] [address] Mar, [facility] [address] [id number] [address] [place] [address], [place] [id number] 15 Mar, 2014 [facility] [address] [id number] [address] [place] [address], [place] [address] Mar, [facility] [address] [id number] [address] [place] [address], [place] [address] Mar, [facility] [address] [id number] [address] [place] [address], [place] [address] Mar, [facility] [address] [id number] [address] [place] [address], [place] [address] Feb, [facility] [place] [facility] [address] [id number] [address] [place] [address], [place] [address] Feb, [facility] [place] [facility] [address] [id number] [address] [place] [address], [place] [address] Feb, [facility] [place] [facility] [address] [id number] [address] [place] [address], [place] [address] Jan, [facility] [place] [facility] [address] [id number] [address] [place] [address], [place] [address] Jan, [facility] [place] [facility] [address] [id number] [address] [place] [address], [place] [address] Jan, [facility] [place] [facility] [address] [id number] [address] [place] [address], [place] [address] Jan, [facility] [place] [facility] [address] [id number] [address] [place] [address], [place] [address] Jan, [facility] [place] [facility] [address] [id number] [address] [place] [address], [place] [address] Jan, [facility] [place] [facility] [address] [id number] [address] [place] [address], [place] [address] Jan, [facility] [place] [facility] [address] [id number] [address] [place] [address], [place] [address] Jan, [facility] [place] [facility] [address] [id number] [address] [place] [address], [place] [address] Jan, [facility] [place] [facility] [address] [id number] [address] [place] [address], [place] [address] Jan, [facility] [place] [facility] [address] [id number] [address] [place] [address], [place] [address] Nov, [facility] [place] [facility] [address] [id number] [address] [place] [address], [place] [address] Nov, [facility] [place] [facility] [address] [id number] [address] [place] [address], [place] [address] Nov, [facility] [place] [facility] [address] [id number] [address] [place] [address], [place] [address] Oct, [facility] [address] [id number] [facility] [place] [address] Oct, [facility] [place] [facility] [address] [id number] [address] [place] [address], [place] [address] Oct, [facility] [place] [facility] [address] [id number] [address] [place] [address], [place] [address] Oct, 2013 [facility] [place] [facility] [address] [id number] [address] [place] [address], [place] [address] Oct, 2013 [facility] [place] [facility] [address] [id number] [address] [place] [address], [place] [address] Oct, [facility] [place] [facility] [address] [id number] [address] [place] [address], [place] [address] Oct, [facility] [place] [facility] [address] [id number] [address] [place] [address], [place] [address] Oct, [facility] [place] [facility] [address] [id number] [address] [place] [address], [place] [address] Oct, [facility] [place] [facility] [address] [id number] [address] [place] [address], [place] [address] Sep, [facility] [place] [facility] [address] [id number] [address] [place] [address], [place] [address] 30 Sep, 2013 [facility] [place] [facility] [address] [id number] [address] [place] [address], [place] [address] 24 Sep, 2013 [facility] [place] [facility] [address] [id number] [address] [place] [address], [place] [address] Sep, [facility] [place] [facility] [address] [id number] [address] [place] [address], [place] [address] Sep, [facility] [place] [facility] [address] [id number] [address] [place] [address], [place] [address] Sep, [facility] [place] [facility] [address] [id number] [address] [place] [address], [place] [address] Sep, [facility] [place] [facility] [address] [id number] [address] [place] [address] Sep, [facility] [address] [id number] [address] [place] [address], [place] [address] Sep, [facility] [address] [id number] [address] [place] [address], [place] [address] August, [facility] [address] [id number] [address] [place] [address], [place] [address] August, [facility] [address] [id number] [address] [place] [address], [place] [address] August, [facility] [address] [id number] [address] [place] [address], [place] [address] August, [facility] [address] [id number] [address] [place] [address], [place] [address] August, [facility] [address] [id number] [address] [place] [address], [place] [address] August, [facility] [address] [id number] [address] [place] [address], [place] [address] Jul, [facility] [address] [id number] [address] [place] [address], [place] [address] Jul, [facility] [address] [id number] [address] [place] [address], [place] [address] Jul, [facility] [address] [id number] [address] [place] [address], [place] [address] Jul, [facility] [address] [id number] [address] [place] [address], [place] [address] Jul, [facility] [address] [id number] [address] [place] [address], [place] [address] Jul, [facility] [address] [id number] [address] [place] [address], [place] [address] Jun, [facility] [address] [id number] [address] [place] [address], [place] [address] Jun, [facility] [place] [facility] [address] [id number] [address] [place] [address], [place] [address] May, [facility] [address] [id number] [address] [place] [address], [place] [address] May, [facility] [address] [id number] [address] [place] [address], [place] [address] May, [facility] [address] [id number] [address] [place] [address], [place] [address] May, [facility] [address] [id number] [address] [place] [address], [place] [address] Apr, [facility] [address] [id number] [address] [place] [address], [place] [address] Apr, [facility] [address] [id number] [address] [place] [address], [place] [address] 18 Mar, 2013 [facility] [address] [id number] [address] [place] [address], [place] [address] 18 Mar, 2013 [facility] [address] [id number] [address] [place] [address], [place] [address] 17 Mar, 2013 [facility] [address] [id number] [address] [place] [address], [place] [address] 17 Mar, 2013 [facility] [address] [id number] [address] [place] [address], [place] [address] 05 Mar, 2013 [facility] [address] [id number] [address] [place] [address], [place] [address] 05 Mar, 2013 [facility] [address] [id number] [address] [place] [address], [place] [address] 20 Feb, 2013 [facility] [address] [id number] [address] [place] [address], [place] [address] 20 Feb, 2013 [facility] [address] [id number] [address] [place] [address], [place] [address] 14 Feb, 2013 [facility] [address] [id number] [address] [place] [address], [place] [address] 14 Feb, 2013 [facility] [address] [id number] [address] [place] [address], [place] [address] Feb, [facility] [address] [id number] [address] [place] [address], [place] [address] Feb, [facility] [address] [id number] [address] [place] [address], [place] [address] Jan, [facility] [address] [id number] [address] [place] [address], [place] [address] Jan, [facility] [address] [id number] [address] [place] [address], [place] [address] Jan, [facility] [address] [id number] [address] [place] [address], [place] [address] Jan, [facility] [address] [id number] [address] [place] [address], [place] [address] Jan, [facility] [address] [id number] [address] [place] [address], [place] [address] Jan, [facility] [address] [id number] [address] [place] [address], [place] [address] Dec, [facility] [address] [id number] [address] [place] [address], [place] [address] Dec, [facility] [address] [id number] [address] [place] [address], [place] [address] Nov, [facility] [address] [id number] [address] [place] [address], [place] [address] Nov, [facility] [address] [id number] [address] [place] [address], [place] [address] Oct, [facility] [place] [facility] [address] [id number] [address] [place] [address], [place] [address] Oct, [facility] [address] [id number] [address] [place] [address], [place] [address] Oct, [facility] [place] [facility] [address] [id number] [address] [place] [address], [place] [address] Oct, [facility] [address] [id number] [address] [place] [address], [place] [address] Oct, [facility] [address] [id number] [address] [place] [address], [place] [address] Oct, [facility] [address] [id number] [address] [place] [address], [place] [address] Sep, [facility] [address] [id number] [address] [place] [address], [place] [address] Sep, [facility] [address] [id number] [address] [place] [address], [place] [address] Sep, [facility] [address] [id number] [address] [place] [address], [place] [address] Sep, [facility] [address] [id number] [address] [place] [address], [place] [address] August, [facility] [address] [id number] [address] [place] [address], [place] [address] August, [facility] [address] [id number] [address] [place] [address], [place] [address] August, [facility] [address] [id number] [address] [place] [address], [place] [address] August, [facility] [address] [id number] [address] [place] [address], [place] [address] August, [facility] [address] [id number] [address] [place] [address], [place] [address] Jul, [facility] [address] [id number] [address] [place] [address], [place] [address] Jul, [facility] [address] [id number] [address] [place] [address], [place] [address] Jul, [facility] [address] [id number] [address] [place] [address], [place] [address] Jul, [facility] [address] [id number] [address] [place] [address], [place] [address] Jul, [facility] [address] [id number] [address] [place] [address], [place] [address] Jul, [facility] [address] [id number] [address] [place] [address], [place] [address] Jul, [facility] [address] [id number] [address] [place] [address], [place] [address] Jul, [facility] [address] [id number] [address] [place] [address], [place] [address] Jul, [facility] [address] [id number] [address] [place] [address], [place] [address] Jul, [facility] [address] [id number] [place], [facility] [id number] Jun, [facility] [address] [id number] [address] [place] [id number] Jun, [facility] [address] [id number] [address] [place] [address], [place] [address] Jun, [facility] [address] [id number] [address] [place] [id number] Jun, [facility] [address] [id number] [address] [place] [address], [place] [address] Jun, [facility] [place] [facility] [address] [id number] [address] [place] [id number] May, [facility] [place] [facility] [address] [id number] [address] [place] [address], [place] [address] May, [facility] [place] [facility] [address] [id number] [address] [place] [address], [place] [address] May, [facility] [place] [facility] [address] [id number] [address] [place] [address], [place] [address] Apr, [facility] [place] [facility] [address] [id number] [address] [place] [address], [place] [address] Apr, [facility] [address] [id number] [address] [place] [address], [place] [address] Apr, [facility] [address] [id number] [address] [place] [address], [place] [id number] Apr, [facility] [address] [id number] [address] [place] [address], [place] [id number] Apr, [facility] [address] [id number] [address] [place] [address], [place] [id number] Apr, [facility] [address] [id number] [address] [place] [address], [place] [id number] Mar, [facility] [address] [id number] [address] [place] [address], [place] [id number] Mar, [facility] [address] [id number] [address] [place] [address], [place] [address] Mar, [facility] [address] [id number] [address] [place] [address], [place] [id number] Mar, [facility] [address] [id number] [address] [place] [address], [place] [id number] Feb, [facility] [address] [id number] [address] [place] [address], [place] [address] Feb, [facility] [address] [id number] [address] [place] [address], [place] [id number] Feb, [facility] [address] [id number] [address] [place] [address], [place] [id number] Feb, [facility] [address] [id number] [address] [place] [address], [place] [id number] Feb, [facility] [address] [id number] [address] [place] [address], [place] [id number] Feb, [facility] [address] [id number] [address] [place] [address], [place] [id number] Feb, [facility] [address] [id number] [address] [place] [address], [place] [id number] Feb, [facility] [address] [id number] [address] [place] [address], [place] [address] Feb, [facility] [address] [id number] [address] [place] [address], [place] [id number] Feb, [facility] [address] [id number] [address] [place] [address], [place] [id number] Feb, [facility] [address] [id number] [address] [place] [address], [place] [id number] Feb, [facility] [address] [id number] [address] [place] [address], [place] [id number] Feb, [facility] [address] [id number] [address] [place] [address], [place] [address] Feb, [facility] [address] [id number] [address] [place] [address], [place] [address] Feb, [facility] [address] [id number] [address] [place] [address], [place] [id number] Feb, [facility] [address] [id number] [address] [place] [address], [place] [id number] Jan, [facility] [address] [id number] [address] [place] [address], [place] [address] Jan, [facility] [address] [id number] [address] [place] [address], [place] [address] Jan, [facility] [address] [id number] [address] [place] [address], [place] [id number] Jan, [facility] [address] [id number] [address] [place] [address], [place] [id number] 30 Jan, 2012 [facility] [address] [id number] [address] [place] [address], [place] [id number] Jan, [facility] [address] [id number] [address] [place] [address], [place] [id number] 25 Jan, 2012 [facility] [address] [id number] [address] [place] [address], [place] [id number] 16 Jan, 2012 [facility] [address] [id number] [address] [place] [address], [place] [id number] 16 Jan, 2012 [facility] [address] [id number] [address] [place] [address], [place] [id number] 15 Jan, 2012 [facility] [address] [address] [id number] [address] [place] [address], [place] [id number] 15 Jan, 2012 [facility] [address] [id number] [address] [place] [address], [place] [id number] 01 Jan, 2012 [facility] [address] [id number] [address] [place] [address], [place] [id number] 26 Sep, 2011 [facility] [address] [id number] [address] [place] [address], [place] [id number] 26 Sep, 2011 [facility] [address] [id number] [address] [place] [address], [place] [id number] 24 Sep, 2011 [facility] [address] [id number] [address] [place] [address], [place] [id number] 23 Sep, 2011 [facility] [address] [id number] [address] [place] [address], [place] [id number] 22 Sep, 2011 [facility] [address] [id number] [address] [place] [address], [place] [id number] 21 Sep, 2011 [facility] [address] [id number] [address] [place] [address], [place] [id number] 20 Sep, 2011 [facility] [address] [id number] [address] [place] [address], [place] [id number] 20 Sep, 2011 [facility] [address] [id number] [address] [place] [address], [place] [id number] 07 Sep, 2011 [facility] [address] [id number] [address] [place] [address], [place] [id number] 06 Sep, 2011 [facility] [address] [id number] [address] [place] [address], [place] [address] 06 Dec, 2011 [facility] [address] [id number] [address] [place] [address], [place] [id number] 05 Dec, 2011 [facility] [address] [id number] [address] [place] [address], [place] [id number] Nov, [facility] [address] [id number] [address] [place] [address], [place] [id number] 17 Nov, 2011 [facility] [address] [id number] [address] [place] [address], [place] [id number] Nov, [facility] [address] [id number] [address] [place] [address], [place] [id number] Nov, [facility] [address] [id number] [address] [place] [address], [place] [id number] Nov, [facility] [address] [id number] [address] [place] [address], [place] [id number] Nov, [facility] [address] [id number] [address] [place] [address], [place] [id number] Nov, [facility] [address] [id number] [address] [place] [address], [place] [id number] Nov, [facility] [address] [id number] [address] [place] [address], [place] [id number] Oct, [facility] [address] [id number] [address] [place] [address], [place] [id number] Oct, [facility] [address] [id number] [address] [place] [address], [place] [id number] Oct, [facility] [address] [id number] [address] [place] [address], [place] [id number] Oct, [facility] [address] [id number] [address] [place] [address], [place] [id number] Oct, [facility] [address] [id number] [address] [place] [address], [place] [id number] Oct, [facility] [address] [id number] [address] [place] [address], [place] [id number] Oct, [facility] [address] [id number] [address] [place] [address], [place] [address] Sep, [facility] [address] [id number] [address] [place] [address], [place] [address] Sep, [facility] [address] [id number] [address] [place] [address], [place] [id number] August, [facility] [address] [id number] [address] [place] [address], [place] [id number] August, [facility] [address] [id number] [address] [place] [address], [place] [id number] August, [facility] [address] [id number] [address] [place] [address], [place] [id number] August, [facility] [address] [id number] [address] [place] [address], [place] [id number] Jul, [facility] [address] [id number] [address] [place] [address], [place] [id number] Jul, [facility] [address] [id number] [address] [place] [address], [place] [id number] Jul, [facility] [address] [id number] [address] [place] [address], [place] [id number] Jul, [facility] [address] [id number] [address] [place] [address], [place] [id number] Jul, [facility] [address] [id number] [address] [place] [address], [place] [id number] Jul, [facility] [address] [id number] [address] [place] [address], [place] [address] Jul, [facility] [address] [id number] [address] [place] [address], [place] [address] Jul, [facility] [address] [id number] [address] [place] [address], [place] [id number] 02 Jul, 2011 [facility] [address] [id number] [address] [place] [address], [place] [id number] 23 Jun, 2011 [facility] [address] [id number] [address] [place] [address], [place] [id number] 19 Jun, 2011 [facility] [address] [id number] [address] [place] [address], [place] [id number] 15 Jun, 2011 [facility] [address] [id number] [address] [place] [address], [place] [id number] 14 Jun, 2011 [facility] [address] [id number] [address] [place] [address], [place] [id number] 12 Jun, 2011 [facility] [address] [id number] [address] [place] [address], [place] [id number] 09 Jun, 2011 [facility] [address] [id number] [address] [place] [address], [place] [id number] 09 Jun, 2011 [facility] [address] [id number] [address] [place] [address], [place] [id number] 25 May, 2011 [facility] [address] [id number] [address] [place] [address], [place] [id number] 24 May, 2011 [facility] [address] [id number] [address] [place] [address], [place] [id number] 16 May, 2011 [facility] [address] [id number] [address] [place] [address], [place] [id number] 16 May, 2011 [facility] [address] [id number] [address] [place] [address], [place] [id number] May, [facility] [address] [id number] [address] [place] [address], [place] [id number] Apr, [facility] [address] [id number] [address] [place] [address], [place] [id number] Apr, [facility] [address] [id number] [address] [place] [address], [place] [id number] Apr, [facility] [address] [id number] [address] [place] [address], [place] [address] Apr, [facility] [address] [id number] [address] [place] [address], [place] [address] Apr, [facility] [address] [id number] [address] [place] [address], [place] [address] Mar, [facility] [address] [id number] [address] [place] [address], [place] [id number] Mar, [facility] [address] [id number] [address] [place] [address], [place] [id number] Mar, [facility] [address] [id number] [address] [place] [address], [place] [id number] Mar, [facility] [address] [id number] [address] [place] [address], [place] [id number] Mar, [facility] [address] [id number] [address] [place] [address], [place] [address] Mar, [facility] [address] [id number] [address] [place] [address], [place] [address] Mar, [facility] [address] [id number] [address] [place] [address], [place] [id number] Feb, [facility] [address] [id number] [address] [place] [address], [place] [id number] Feb, [facility] [address] [id number] [address] [place] [address], [place] [address] Feb, [facility] [address] [id number] [address] [place] [address], [place] [id number] Feb, [facility] [address] [id number] [address] [place] [address], [place] [id number] Jan, [facility] [address] [id number] [address] [place] [address], [place] [id number] Jan, [facility] [address] [id number] [address] [place] [id number] Jan, [facility] [place] [address] [id number] [address] [place] [id number] Jan, [facility] [place] [address] [id number] [address] [place] [id number] Nov, [facility] [address] [id number] [address] [place] [id number] Mar, [facility] [address] [id number] [address] [place] [phone] Mar, [facility] [place] [address] [id number] [address] [place] [id number] Mar, [facility] [place] [address] [id number] [address] [place] [id number] Mar, [facility] [place] [address] [id number] [address] [place] [phone] Mar, [facility] [place] [address] [id number] [address] [place] [id number] Mar, [facility] [place] [address] [id number] [address] [place] [phone] Feb, [facility] [place] [address] [id number] [address] [place] [phone] Feb, [facility] [place] [address] [id number] [address] [place] [phone] Jan, [facility] [place] [address] [id number] [address] [place] [phone] Jan, [facility] [place] [address] [id number] [address] [place] [id number] Jan, IMMUNIZATIONS No Known Immunizations SOCIAL HISTORY Never Assessed REASON FOR VISIT PLAN OF CARE VITAL SIGNS Height 63 in 2014-03-30 Weight 276.69 lbs 2014-03-30 Temperature 103.5 degrees Fahrenheit 2014-03-30 Heart Rate 90 bpm 2014-03-30 Respiratory Rate 24 2014-03-30 Blood pressure systolic 144 mmHg 2014-03-30 Blood pressure diastolic 88 mmHg 2014-03-30 MEDICATIONS Unknown Medications RESULTS No Results PROCEDURES Procedure Date Ordered Result Body Site MEASURE BLOOD OXYGEN LEVEL Mar 30, 2014 INFLUENZA ASSAY W/OPTIC Mar 30, 2014 INSTRUCTIONS MEDICATIONS ADMINISTERED No Known Medications [...] History CPAP Noncompliance_ Dr. Madden advises a Sessions driving. Medical History Bacterial meningitis 12/2016 Medical [...] 09-2015 & 2007 Surgical History Bladder surgery [facility] 03/2016 Surgical History Neurotransmitter placed 10/2017 Surgical History retninal repair 12/31/2017 Surgical History cataract surgery 2018 Surgical History cataract surgery 2019 Surgical History SCS trial x7 days 2018 Surgical History SCS implant removed. 2019 Hospitalization History Surgeries Only Hospitalization History bacterial meningitis December 2016 Hospitalization History [facility] psych for SI 1988 Hospitalization History [facility]-Altered mental status 05/2017 Hospitalization History sepsis, UTI, headache 08/03/2018-
--- OUTSIDE RECORDS SUMMARY | 2019-08-01 10:08 | XMS REPORT ---
Author Author Lola Tyson Doctor Organization [facility] Address Unknown Phone Unavailable Care Team Providers Care Deicer Repairer Name Role Phone Migration, Doctor Unavailable Unavailable PROBLEMS Type Condition ICD9-CM Code CFD25-UM Code Onset Dates Condition S tatus SNOMED Code Problem Hypothyroid E03.9 Active 03658735 Problem Asthma J45.909 Active 320440714 Problem Insomnia G47.00 Active 398911579 Problem Depressed F32.9 Active 56937198 Problem Palpitations R00.2 Active 7918132 2 Problem Functional diarrhea K59.1 Active 71815651 Problem Chronic kidney disease, stage 4 (severe) N18.4 Active 202890868 Problem Degenerative tear of medial meniscus of left knee M23.204 Active 499813335 Problem Dysthymic disorder F34.1 Active 7 2870371 Problem Primary osteoarthritis of left knee M17.12 Active 782154275 Problem Generalized anxiety disorder F41.1 A ctive 91442279 Problem Restless leg G25.81 Active 1029449 8 Problem Coronary artery disease invo lving torres martinez coronary artery of torres martinez heart, angina presence unspecified I25.10 Active 6829124690703 Problem Hypokalemia E87.6 Active 49004244 Problem Other seasonal allergic rhinitis J30.2 Active 572078226 Problem Mixed stress and urge urinary incontinence N39.46 Active 845941848 Problem Fibromyalgia M79.7 Active 6728809 05 Problem Essential (primary) hypertension I10 Active 94761315 Problem Long-term use of high-risk medication Z79.899 Active 511068057 Problem Vitamin D deficiency E55.9 Active 96926468 Problem Anemia in chronic kidney disease D63.1 Active 433625946314460 Problem Low back pain M54.5 Active 743331 009 Problem Chronic kidney disease, unspecified N18.9 Active 264474219 Problem Abnormal chest CT R93.8 Active 44 8488221 Problem Mood disorder F39 Active 669992 05 Problem Stage 3 chronic kidney disease N18.3 Active 706065552 Problem Body mass index (BMI) of 40.0-44.9 in adult Z68.41 Active 851309024 Problem Other chronic pain G89.29 Active 8 5045815 Problem Asthma with acute exacerbation in adult J45.901 Active 802478137 Problem Major depressive disorder, recurrent, moderate F33 .1 Active 947412033 Problem History of colon polyps Z86.010 Active 908811709 Problem History of anemia Z86.2 Active 27 7468367 Problem Seasonal allergic rhinitis due to pollen J30.1 Active 56093447 Problem Restless leg syndrome G25.81 Active 00076116 Problem Chronic pain syndrome G89.4 Active 977363469 Problem Perimenopausal vasomotor symptoms N95.1 Active 856230340 ALLERGIES No Information ENCOUNTERS Encounter Location Date Diagnosis [facility] [address] [facility] [id number] [address] [place] [phone] Jan, [facility] [address] [facility] [id number] [address] [place] [phone] Dec, [facility] [address] [facility] [id number] [address] [place] [phone] Dec, [facility] [address] [facility] [id number] [address] [place] [phone] Dec, [facility] [address] [facility] [id number] [address] [place] [phone] Nov, Major depressive disorder, r ecurrent, moderate F33.1 ; Generalized anxiety disorder F41.1 and Dysthymic disorder F34.1 [facility] [address] [facility] [id number] [address] [place] [phone] Nov, [facility] [address] [facility] [id number] [address] [place] [phone] Nov, Chronic pain syndrome G89.4 [facility] [address] [facility] [id number] [address] [place] [phone] 05 Nov, 2018 Restless leg syndrome G25.81 [facility] [address] [facility] [id number] [address] [place] [phone] 02 Nov, 2018 Pain in right shoulder M25.5 11 ; Restless leg syndrome G25.81 ; Other chronic pain G89.29 ; Screening for breast cancer Z12.39 ; Insomnia G47.00 and Morbid obesity E66.01 [facility] [address] [id number] [address] [place] [phone] Nov, [facility] [address] [facility] [id number] [address] [place] [phone] Oct, Major depressive disorder, r ecurrent, moderate F33.1 ; Generalized anxiety disorder F41.1 and Dysthymic disorder F34.1 [facility] [address] [id number] [address] [place] [phone] Oct, [facility] [address] [id number] [address] [place] [phone] Oct, Cellulitis of left lower ext remity L03.116 and Morbid obesity E66.01 [facility] [address] [facility] [id number] [address] [place] [phone] Oct, [facility] [address] [id number] [address] [place] [phone] Oct, [facility] [address] [facility] [id number] [address] [place] [phone] Oct, Generalized anxiety disorder F41.1 and Major depressive disorder, recurrent episode with anxious distress F33.9 [facility] [address] [facility] [id number] [address] [place] [phone] Oct, [facility] [address] [facility] [id number] [address] [place] [phone] Oct, Chronic pain syndrome G89.4 [facility] [address] [id number] [address] [place] [phone] Oct, Chronic pain syndrome G89.4 [facility] [address] [facility] [id number] [address] [place] [phone] Oct, UTI symptoms R39.9 ; Acute c ystitis without hematuria N30.00 and Morbid obesity E66.01 [facility] [address] [id number] [address] [place] [phone] Oct, [facility] [address] [facility] [id number] [address] [place] [phone] Oct, Chronic pain syndrome G89.4 [facility] [address] [id number] [address] [place] [phone] Sep, [facility] [address] [id number] [address] [place] [phone] Sep, Generalized anxiety disorder F41.1 and Major depressive disorder, recurrent episode with anxious distress F33.9 [facility] [address] [facility] [id number] [address] [place] [phone] Sep, Chronic kidney disease, 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 [facility] [address] [id number] [address] [place] [phone] Sep, Fibromyalgia M79.7 and Chron ic pain syndrome G89.4 [facility] [address] [id number] [address] [place] [id number] Sep, [address] [phone] Sep, Chronic pain syndrome G89.4 [facility] [address] [facility] [id number] [address] [place] [phone] Sep, [facility] [address] [facility] [id number] [address] [place] [phone] Sep, Chronic pain syndrome G89.4 ; Fibromyalgia M79.7 and Morbid obesity E66.01 [facility] [address] [id number] [address] [place] [phone] August, Generalized anxiety disorder F41.1 and Major depressive disorder, recurrent episode with anxious distress F33.9 [facility] [address] [facility] [id number] [address] [place] [phone] August, Fibromyalgia M79.7 [facility] [address] [facility] [id number] [address] [place] [phone] August, Restless leg syndrome G25.81 ; Vitamin D deficiency E55.9 ; Urinary tract infection without hematuria, site unspecified N39.0 ; Pain in right shoulder M25.511 ; Other chronic pain G89.29 ; Biceps tendinitis on right M75.21 and Morbid obesity E66.01 [facility] [address] [id number] [address] [place] [phone] Jul, Urinary tract infection with out hematuria, site unspecified N39.0 and Morbid obesity E66.01 [facility] [address] [id number] [address] [place] [phone] Jul, [place] [address] [facility] [id number] [address] [place] [phone] Jul, [place] [address] [facility] [id number] [address] [place] [phone] Jul, Fibromyalgia M79.7 [facility] [address] [facility] [id number] [address] [place] [phone] Jul, Acute pain of right shoulder M25.511 [place] [address] [facility] [id number] [address] [place] [phone] Jul, Acute pain of right shoulder M25.511 and Morbid obesity E66.01 [facility] [address] [id number] [address] [place] [phone] Jun, [facility] [address] [facility] [id number] [address] [place] [phone] Jun, Generalized anxiety disorder F41.1 and Major depressive disorder, recurrent episode with anxious distress F33.9 [facility] [address] [id number] [address] [place] [phone] Jun, [facility] [address] [facility] [id number] [address] [place] [phone] Jun, Fibromyalgia M79.7 [facility] [address] [id number] [address] [place] [phone] 04 Jun, 2018 Acute pain of right shoulder M25.511 ; Acute pain of right hip M25.551 and Morbid obesity E66.01 [facility] [address] [place] [id number] [address] [place] [phone] 11 May, 2018 Burning with urination R30.0 ; Vaginal discharge N89.8 ; Chronic kidney disease, stage 4 (severe) N18.4 ; Body mass index (BMI) of 40.0-44.9 in adult Z68.41 and Morbid obesity E66.01 [facility] [address] [place] [id number] [address] [place] [id number] 07 May, 2018 Fibromyalgia M79.7 [place] [address] [id number] 06 May, 2018 Generalized anxiety disorder F41.1 and Major depressive disorder, recurrent episode with anxious distress F33.9 [place] [address] [address] Apr, [facility] [address] [phone] Apr, Fibromyalgia M79.7 [facility] [address] [place] [id number] [address] [place] [phone] Mar, Acute UTI N39.0 and Dysuria R30.0 [place] [address] [phone] Mar, Fibromyalgia M79.7 [facility] [address] [place] [id number] [address] [place] [phone] Feb, [facility] [address] [phone] Feb, [facility] [address] [place] [id number] [place] [phone] Feb, [facility] [address] [place] [id number] [place] [phone] Feb, Fibromyalgia M79.7 [facility] [address] [id number] [address] [place] [phone] Feb, Complicated UTI (urinary tra ct infection) N39.0 [facility] [address] [id number] [address] [place] [phone] Feb, [facility] [address] [id number] [address] [place] [phone] Jan, Generalized anxiety disorder F41.1 and Major depressive disorder, recurrent episode with anxious distress F33.9 [facility] [address] [id number] [address] [place] [phone] Jan, Acute conjunctivitis of left eye, unspecified acute conjunctivitis type H10.32 [facility] [address] [id number] [address] [place] [phone] Jan, [facility] [address] [facility] [id number] [address] [place] [phone] Jan, Acute non-recurrent maxillar y sinusitis J01.00 ; Dysuria R30.0 ; Perimenopausal vasomotor symptoms N95.1 and Fibromyalgia M79.7 [facility] [address] [id number] [address] [place] [phone] Dec, Vitamin D deficiency E55.9 [facility] [address] [id number] [address] [place] [phone] Dec, Vitamin D deficiency E55.9 [facility] [address] [id number] [address] [place] [phone] 24 Dec, 2017 Vitamin D deficiency E55.9 [facility] [address] [id number] [address] [place] [id number] 12 Dec, 2017 [facility] [address] [facility] [id number] [address] [place] [phone] Dec, Fibromyalgia M79.7 [facility] [address] [facility] [id number] [address] [place] [phone] Nov, [facility] [address] [id number] [address] [place] [phone] Nov, [facility] [address] [id number] [address] [place] [phone] Nov, [facility] [address] [id number] [address] [place] [phone] Nov, Fibromyalgia M79.7 ; Vision changes H53.9 ; Chest wall pain R07.89 and Chronic pain syndrome G89.4 [facility] [address] [id number] [address] [place] [phone] Nov, [facility] [address] [id number] [address] [place] [phone] Nov, Rash of hands R21 [facility] [address] [id number] [address] [place] [phone] Nov, Generalized anxiety disorder F41.1 and Major depressive disorder, recurrent episode with anxious distress F33.9 [facility] [address] [id number] [address] [place] [phone] Nov, Fibromyalgia M79.7 [facility] [address] [id number] [address] [place] [phone] Nov, Complicated UTI (urinary tra ct infection) N39.0 [facility] [address] [id number] [address] [place] [phone] Oct, [facility] [address] [id number] [address] [place] [phone] Oct, Generalized anxiety disorder F41.1 and Major depressive disorder, recurrent episode with anxious distress F33.9 [facility] [address] [id number] [address] [place] [phone] Oct, [facility] [address] [id number] [address] [place] [phone] Oct, Fibromyalgia M79.7 [facility] [address] [id number] [address] [place] [phone] Sep, Restless leg syndrome G25.81 and Restless leg G25.81 [facility] [address] [place] [id number] [address] [place] [phone] Sep, [facility] [address] [place] [id number] [address] [place] [phone] Sep, Seasonal allergic rhinitis d ue to pollen J30.1 ; Screening for breast cancer Z12.31 ; Chest pain at rest R07.9 ; Restless leg syndrome G25.81 ; Essential (primary) hypertension I10 and Depressed F32.9 [facility] [address] [id number] August, Fibromyalgia M79.7 [place] [address] [phone] August, [facility] [address] [address] August, [facility] [address] [place] [id number] [address] [place] [phone] August, Abnormal chest CT R93.8 [place] [address] [address] August, Generalized anxiety disorder F41.1 and Major depressive disorder, recurrent episode with anxious distress F33.9 [facility] [address] [place] [id number] [address] [place] [phone] August, Abnormal chest CT R93.8 [place] [address] [place] [id number] [address] [place] [phone] Jul, [facility] [address] [id number] Jul, Chronic kidney disease, 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 [facility] [address] [place] [id number] [address] [place] [phone] Jul, [facility] [address] [facility] [id number] [address] [place] [phone] Jul, Restless leg G25.81 ; Mixed stress and urge urinary incontinence N39.46 and Fibromyalgia M79.7 [facility] [address] [facility] [id number] [address] [place] [id number] Jul, Chronic kidney disease, 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 [facility] [address] [facility] [id number] [address] [place] [phone] Jun, Orthostatic hypotension I95. 1 ; Chronic kidney disease, stage 4 (severe) N18.4 ; Chest wall discomfort R07.89 and Body mass index (BMI) of 40.0- 44.9 in adult Z68.41 [place] [address] [facility] [id number] [address] [place] [phone] Jun, [facility] [address] [place] [id number] [address] [place] [phone] Jun, Orthostatic hypotension I95. 1 [facility] [address] [facility] [id number] [address] [place] [phone] Jun, [facility] [address] [facility] [id number] [address] [place] [phone] Jun, Orthostatic hypotension I95. 1 ; Dysuria R30.0 and Acute cystitis without hematuria N30.00 [facility] [address] [facility] [id number] [address] [place] [id number] Jun, [facility] [address] [facility] [id number] [address] [place] [id number] Jun, Chronic kidney disease, 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 [facility] [address] [facility] [id number] [address] [place] [phone] Jun, Fibromyalgia M79.7 [facility] [address] [place] [id number] [address] [place] [phone] Jun, [facility] [address] [place] [id number] [address] [place] [phone] Jun, [facility] [address] [id number] [address] [place] [phone] May, Abnormal chest CT R93.8 and Stage 3 chronic kidney disease N18.3 [facility] [address] [id number] [address] [place] [phone] May, Chronic kidney disease, 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 [facility] [address] [id number] [address] [place] [phone] May, Chronic kidney disease, 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 [facility] [address] [id number] [address] [place] [phone] May, Abnormal chest [address] R93.8 [facility] [address] [id number] [address] [place] [phone] May, [facility] [address] [id number] [address] [place] [phone] May, [facility] [address] [id number] [address] [place] [phone] May, Generalized anxiety disorder F41.1 and Major depressive disorder, recurrent episode with anxious distress F33.9 [facility] [address] [id number] [address] [place] [phone] May, Mood disorder F39 [facility] [address] [id number] [address] [place] [id number] Apr, [facility] [address] [id number] [address] [place] [phone] Apr, Infected skin lesion L08.9 a nd Muscle strain of right shoulder region, initial encounter S46.911A [facility] [address] [id number] [address] [place] [id number] Apr, Generalized anxiety disorder F41.1 and Major depressive disorder, recurrent episode with anxious distress F33.9 [facility] [address] [id number] [address] [place] [phone] Apr, [facility] [address] [id number] [address] [place] [phone] Apr, Recent urinary tract infecti on Z87.440 and Hypothyroid E03.9 [facility] [address] [id number] [address] [place] [id number] Apr, Generalized anxiety disorder F41.1 and Major depressive disorder, recurrent episode with anxious distress F33.9 [facility] [address] [id number] [address] [place] [phone] Apr, Recent urinary tract infecti on Z87.440 [facility] [address] [id number] [address] [place] [id number] Mar, [facility] [address] [id number] [address] [place] [phone] Mar, Dysuria R30.0 ; Acute cystit is without hematuria N30.00 and BMI 40.0-44.9, adult Z68.41 [place] [address] [id number] [address] [place] [phone] Mar, [facility] [address] [id number] [address] [place] [phone] Mar, [facility] [address] [id number] [address] [place] [phone] Mar, Generalized anxiety disorder F41.1 and Major depressive disorder, recurrent episode with anxious distress F33.9 [facility] [address] [id number] [address] [place] [phone] Feb, Conjunctivitis, bacterial H1 0.9 [facility] [address] [id number] [address] [place] [id number] Feb, [facility] [address] [id number] [address] [place] [id number] 15 Feb, 2017 Conjunctivitis, bacterial H1 0.9 [facility] [address] [place] [id number] [address] [place] [id number] Feb, [facility] [id number] [place] [id number] Feb, Dysuria R30.0 ; Acute cystit is N30.00 and BMI 40.0-44.9, adult Z68.41 [facility] [address] [id number] Feb, [facility] [address] [phone] Feb, Generalized anxiety disorder F41.1 and Major depressive disorder, recurrent episode with anxious distress F33.9 [place] [address] [id number] Feb, Mood disorder F39 and BMI 40 .0-44.9, adult Z68.41 [facility] [address] [id number] Jan, [place] [address] [id number] Jan, [place] [address] [id number] Jan, Hypothyroid E03.9 [facility] [address] [address] Jan, [place] [address] [address] Jan, Chronic kidney disease, unsp ecified N18.9 ; Hypokalemia E87.6 ; Essential (primary) hypertension I10 ; Fibromyalgia M79.7 ; Coronary artery disease involving torres martinez coronary artery of torres martinez heart, angina presence unspecified I25.10 ; Hypothyroid E03.9 and Encounter for immunization Z23 [facility] [address] [address] Jan, Hypothyroid E03.9 [facility] [address] [id number] [address] [place] [phone] 02 Jan, 2017 [facility] [address] [id number] [address] [place] [phone] 28 Dec, 2016 Vitamin D deficiency E55.9 [facility] [address] [id number] [address] [place] [id number] 28 Dec, 2016 Primary osteoarthritis of le ft knee M17.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 [facility] [address] [id number] [address] [place] [phone] 19 Dec, 2016 Fibromyalgia M79.7 [facility] [address] [id number] [address] [place] [phone] 18 Dec, 2016 Mood disorder F39 [facility] [address] [id number] [address] [place] [phone] 13 Dec, 2016 [facility] [address] [id number] [address] [place] [phone] 13 Dec, 2016 Generalized anxiety disorder F41.1 and Major depressive disorder, recurrent episode with anxious distress F33.9 [facility] [address] [id number] [address] [place] [phone] 11 Dec, 2016 [facility] [address] [id number] [address] [place] [phone] 08 Dec, 2016 Streptococcal meningitis G00 .2 [facility] [address] [id number] [address] [place] [phone] 07 Dec, 2016 Streptococcal meningitis G00 .2 [facility] [address] [id number] [address] [place] [phone] 07 Dec, 2016 [facility] [address] [id number] [address] [place] [phone] 06 Dec, 2016 Streptococcal meningitis G00 .2 [facility] [address] [id number] [address] [place] [phone] Dec, [facility] [address] [facility] [id number] [address] [place] [phone] Dec, Major depressive disorder, r ecurrent episode with anxious distress F33.9 [facility] [address] [facility] [id number] [address] [place] [phone] Nov, Fever, unspecified fever cau se R50.9 [facility] [address] [facility] [id number] [address] [place] [phone] Nov, [facility] [address] [facility] [id number] [address] [place] [phone] Nov, Hypothyroid E03.9 [facility] [address] [facility] [id number] [address] [place] [phone] Nov, Generalized anxiety disorder F41.1 and Major depressive disorder, recurrent episode with anxious distress F33.9 [facility] [address] [facility] [id number] [address] [place] [phone] Nov, [facility] [address] [facility] [id number] [address] [place] [id number] Oct, Dental examination Z01.20 [facility] [address] [facility] [id number] [address] [place] [phone] Oct, Generalized anxiety disorder F41.1 and Major depressive disorder, recurrent episode with anxious distress F33.9 [facility] [address] [facility] [id number] [address] [place] [phone] Oct, Chronic kidney disease, 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 [facility] [address] [facility] [id number] [address] [place] [phone] Oct, [facility] [address] [facility] [id number] [address] [place] [phone] Oct, Fibromyalgia M79.7 [facility] [address] [facility] [id number] [address] [place] [phone] Oct, [facility] [id number] [place] [phone] Oct, Generalized anxiety disorder F41.1 ; Major depressive disorder, recurrent episode with anxious distress F33.9 and Bipolar disorder, current episode manic without psychotic features F31.10 [place] [address] [place] [id number] [address] [place] [phone] Sep, [place] [address] [address] [place] [id number] [address] [place] [phone] Sep, [place] [address] [address] Sep, Vitamin D deficiency E55.9 [place] [address] [address] Sep, Vitamin D deficiency E55.9 [place] [address] [address] Sep, [place] [address] [address] Sep, Chronic kidney disease, 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 ; Hypothyroid E03.9 ; Restless leg G25.81 ; Fibromyalgia M79.7 ; Essential (primary) hypertension I10 ; Vitamin D deficiency E55.9 ; Dyspepsia R10.13 ; Anemia in chronic kidney disease D63.1 ; Chronic kidney disease, unspecified N18.9 ; Coronary artery disease involving torres martinez coronary artery of torres martinez heart, angina presence unspecified I25.10 ; Screening breast examination Z12.39 and Low back pain M54.5 [place] [address] [place] [id number] [address] [place] [phone] August, Generalized anxiety disorder F41.1 and Major depressive disorder, recurrent episode with anxious distress F33.9 [place] [address] [place] [id number] [address] [place] [phone] August, Generalized anxiety disorder F41.1 and Major depressive disorder, recurrent episode with anxious distress F33.9 [place] [address] [address] August, Fibromyalgia M79.7 [place] [address] [address] Jul, Generalized anxiety disorder F41.1 and Major depressive disorder, recurrent episode with anxious distress F33.9 [place] [address] [address] Jul, Fibromyalgia M79.7 [place] [address] [address] Jul, Generalized anxiety disorder F41.1 [place] [address] [address] May, [place] [address] [address] May, Hypothyroid E03.[address] [address] May, Chronic kidney disease, 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 ; Hypothyroid E03.9 ; Restless leg G25.81 ; Fibromyalgia M79.7 ; Essential (primary) hypertension I10 ; Vitamin D deficiency E55.9 ; Dyspepsia R10.13 ; Acute non-recurrent maxillary sinusitis J01.00 ; Anemia in chronic kidney disease D63.1 ; Chronic kidney disease, unspecified N18.9 and Coronary artery disease involving torres martinez coronary artery of torres martinez heart, angina presence unspecified I25.10 [place] [address] [address] May, Vitamin D deficiency, unspec ified E55.[address] [address] May, Generalized anxiety disorder F41.1 and Major depressive disorder, recurrent episode with anxious distress F33.[address] [address] Apr, Pain in right knee M25.561 a nd Pain in left knee M25.562 [facility] [address] [facility] [id number] [address] [place] [id number] Apr, [facility] [address] [facility] [id number] [address] [place] [phone] Apr, [facility] [address] [facility] [id number] [address] [place] [phone] Apr, [facility] [address] [facility] [id number] [address] [place] [phone] Mar, Generalized anxiety disorder F41.1 and Major depressive disorder, recurrent episode with anxious distress F33.9 [place] [address] [place] [id number] [address] [place] [phone] Mar, Generalized anxiety disorder F41.1 and Major depressive disorder, recurrent episode with anxious distress F33.9 [place] [address] [place] [id number] [address] [place] [phone] Mar, [facility] [address] [place] [id number] [address] [place] [phone] Mar, [place] [address] [place] [id number] [address] [place] [phone] Mar, [place] [address] [place] [id number] [address] [place] [phone] Mar, Asthma J45.909 and Fibromyal elvira M79.7 [place] [address] [place] [id number] [address] [place] [phone] Mar, Chronic kidney disease, 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 ; Vitamin D deficiency E55.9 and Essential (primary) hypertension I10 [place] [address] [facility] [id number] [address] [place] [phone] Feb, [place] [address] [place] [id number] [address] [place] [phone] Feb, Dysuria R30.0 ; Mixed stress and urge urinary incontinence N39.46 ; Fibromyalgia M79.7 and Chronic kidney disease, stage IV (severe) N18.4 [facility] [address] [facility] [id number] [address] [place] [phone] Feb, Chronic kidney disease, 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 [facility] [address] [facility] [id number] [address] [place] [phone] Feb, Chronic kidney disease, 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 [facility] [address] [id number] [address] [place] [phone] Feb, [facility] [address] [facility] [id number] [address] [place] [phone] Feb, Vitamin D deficiency, unspec ified E55.9 [facility] [address] [facility] [id number] [address] [place] [phone] Jan, [facility] [address] [facility] [id number] [address] [place] [phone] Jan, [facility] [address] [facility] [id number] [address] [place] [phone] 30 Dec, 2015 [facility] [address] [facility] [id number] [address] [place] [phone] Dec, Chronic kidney disease, 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 [facility] [address] [facility] [id number] [address] [place] [phone] Dec, Dysthymic disorder F34.1 and Generalized anxiety disorder F41.1 [facility] [address] [facility] [id number] [address] [place] [phone] Dec, [facility] [address] [facility] [id number] [address] [place] [phone] Dec, [facility] [address] [facility] [id number] [address] [place] [phone] Dec, Dysthymic disorder F34.1 and Generalized anxiety disorder F41.1 [facility] [address] [address] 08 Dec, 2015 Dysuria R30.0 ; Chronic kidn ey disease, stage 4 (severe) N18.4 ; Hypertension I10 ; Dyspepsia R10.13 ; Yeast dermatitis B37.2 ; Palpitations R00.2 ; Hypothyroid E03.9 ; Functional diarrhea K59.1 and Other seasonal allergic rhinitis J30.2 [facility] [address] [address] 04 Dec, 2015 [facility] [address] [address] 30 Nov, 2015 Dysuria R30.0 and Stress inc ontinence N39.3 [place] [address] [address] Nov, [place] [address] [address] Nov, [place] [address] [address] Nov, Osteoarthritis of knees, jose ateral M17.0 [place] [address] [address] Nov, Dysthymic disorder F34.1 and Generalized anxiety disorder F41.1 [place] [address] [address] Nov, [place] [address] [address] Nov, [place] [address] [address] Nov, Urgency of urination R39.15 [place] [address] [address] Nov, [place] [address] [address] Nov, Chronic kidney disease, 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 [place] [place] [id number] [place] [address] Oct, Hypertension I10 ; Coronary artery disease involving torres martinez coronary artery of torres martinez heart, angina presence unspecified I25.10 ; Palpitations R00.2 ; Hypothyroid E03.9 ; Right foot pain M79.671 ; Functional diarrhea K59.1 and Other seasonal allergic rhinitis J30.2 [facility] [address] [facility] [id number] [address] [place] [phone] Oct, Dysthymic disorder F34.1 and Generalized anxiety disorder F41.1 [place] [address] [place] [id number] [address] [place] [phone] Sep, [place] [address] [place] [id number] [address] [place] [phone] Sep, [place] [address] [place] [id number] [address] [place] [phone] Sep, [facility] [address] [place] [id number] [address] [place] [phone] Sep, [place] [address] [place] [id number] [address] [place] [phone] Sep, [place] [address] [place] [id number] [address] [place] [phone] Sep, Dysthymic disorder F34.1 and Generalized anxiety disorder F41.1 [place] [address] [facility] [id number] [address] [place] [phone] 16 Sep, 2015 Asthma with acute exacerbati on in adult J45.901 ; Dysuria R30.0 ; Chronic kidney disease, stage 4 (severe) N18.4 and History of anemia Z86.2 [facility] [address] [place] [id number] [address] [place] [phone] 2015 Generalized anxiety disorder F41.1 and Dysthymic disorder F34.1 [place] [address] [place] [id number] [address] [place] [phone] August, Screening breast examination Z12.39 and Acute recurrent maxillary sinusitis J01.01 [place] [address] [place] [id number] [address] [place] [phone] August, Osteoarthritis of knees, jose ateral M17.0 [place] [address] [address] August, Chronic kidney disease, 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 ; Acute non- recurrent maxillary sinusitis J01.00 ; Urinary problem R39.89 ; Bowel habit changes R19.4 ; Functional diarrhea K59.1 and History of colon polyps Z86.010 [place] [address] [place] [id number] [address] [place] [phone] Jul, Dysthymic disorder F34.1 and Generalized anxiety disorder F41.1 [place] [address] [address] Jul, [place] [address] [address] Jul, Dysthymic disorder F34.1 ; G eneralized anxiety disorder F41.1 and longterm use of drug Z79.899 [place] [address] [place] [id number] [address] [place] [phone] Jul, [place] [address] [place] [phone] Jun, [place] [address] [place] [id number] [address] [place] [phone] Jun, [place] [address] [address] May, [place] [address] [place] [id number] [address] [place] [phone] May, Dysthymic disorder F34.1 and Generalized anxiety disorder F41.1 [place] [address] [address] Apr, Kidney disease N28.9 [place] [address] [address] Apr, Generalized anxiety disorder F41.1 and Dysthymic disorder F34.1 [place] [address] [address] Apr, Chronic kidney disease, 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 [place] [address] [address] Apr, Generalized anxiety disorder F41.1 ; Major depression, recurrent F33.9 and Sleep disturbance G47.[address] [address] Mar, Generalized anxiety disorder F41.1 and Dysthymic disorder F34.1 [place] [address] [address] Mar, Generalized anxiety disorder F41.1 ; Dysthymic disorder F34.1 and Insomnia G47.[address] [address] Mar, [place] [address] [address] Mar, [address] [address] Mar, Osteoarthritis of knees, jose ateral M17.0 [place] [id number] [place] [address] Mar, Hypertension I10 ; Hypothyro id E03.9 ; Dysthymic disorder F34.1 ; Chronic kidney disease, stage 4 (severe) N18.4 and Nausea & vomiting R11.[address] [address] Mar, Generalized anxiety disorder F41.1 ; Dysthymic disorder F34.1 and Insomnia G47.00 [place] [address] [address] Mar, Dehydration E86.0 ; Chronic kidney disease, stage 4 (severe) N18.4 and Nausea & vomiting R11.2 [facility] [address] [address] Mar, Gastroenteritis K52.9 [facility] [address] [address] Mar, [place] [address] [address] Mar, [place] [address] [address] Feb, Dysthymic disorder F34.1 and Generalized anxiety disorder F41.1 [place] [address] [address] Jan, UTI (urinary tract infection ) N39.0 ; Asthma J45.909 ; Coronary artery disease involving torres martinez coronary artery of torres martinez heart, angina presence unspecified I25.10 ; Hypertension I10 ; Hypothyroid E03.9 ; Vitamin D deficiency E55.9 ; Insomnia G47.00 ; Palpitations R00.2 ; Depressed F32.9 ; Restless leg G25.81 and Anxiety F41.9 [place] [address] [address] Jan, Dysthymic disorder F34.1 and Generalized anxiety disorder F41.1 [place] [address] [address] Jan, [place] [address] [address] Dec, [place] [address] [address] Dec, Alkalosis 276.3 ; Chronic ki dney disease, Stage IV (severe) 585.4 ; Hyperpotassemia 276.7 ; Secondary hyperparathyroidism, renal 588.81 ; Proteinuria 791.0 ; Unspecified vitamin D deficiency 268.9 ; Anemia in chronic kidney disease 285.21 ; Other and unspecified hyperlipidemia 272.4 ; Hypertension, essential, benign 401.1 and Chronic kidney disease (CKD), stage III (moderate) 585.[address] [address] Dec, [address] [address] Dec, Depressive disorder, not els ewhere classified 311 and Generalized anxiety disorder 300.[address] [address] Dec, [address] [address] Dec, [address] [address] Nov, Depressive disorder, not els ewhere classified 311 and Generalized anxiety disorder 300.[address] [address] Nov, Arthritis of both knees 716. [address] [address] Nov, PAF (paroxysmal atrial fibri llation) 427.31 ; CAD (coronary artery disease) 414.00 ; Chest pain 786.50 and Chronic kidney disease (CKD) stage G4/A1, severely decreased glomerular filtration rate (GFR) between 15-29 mL/min/1.73 square meter and albuminuria creatinine ratio less than 30 mg/g 585.[address] [address] Oct, Coronary atherosclerosis of unspecified type of vessel, torres martinez or graft 414.00 ; Chronic kidney disease, Stage IV (severe) 585.4 ; Hypertension 401.9 and Edema 782.3 [place] [address] [address] Oct, Depressive disorder, not els ewhere classified 311 and Generalized anxiety disorder 300.02 [place] [address] [address] Oct, Depressive disorder, not els ewhere classified 311 and Generalized anxiety disorder 300.02 [place] [address] [address] Oct, [place] [address] [address] Oct, [place] [address] [address] Sep, [place] [address] [address] Sep, Chronic kidney disease, Stag e IV (severe) 585.4 [place] [address] [address] Sep, [address] [address] Sep, Coronary atherosclerosis of unspecified type of vessel, torres martinez or graft 414.00 ; Hypertension 401.9 ; Edema 782.3 and Hypothyroidism 244.[address] [address] Sep, Coronary atherosclerosis of unspecified type of vessel, torres martinez or graft 414.00 ; Hypertension 401.9 ; Fibromyalgia 729.1 ; Edema 782.3 ; Hypothyroidism 244.9 and Anemia 285.9 [place] [address] [address] Sep, Anxiety disorder, unspecifie d 300.00 and Depressive disorder, not elsewhere classified 311 [place] [address] [address] Sep, [place] [address] [id number] [address] [place] [address] August, Generalized anxiety disorder 300.02 [facility] [address] [id number] [address] [place] [phone] August, Closed fracture of lateral m alleolus 824.2 [facility] [address] [id number] [address] [place] [address] 14 Jul, 2014 [facility] [address] [id number] [address] [place] [id number] Jul, [facility] [address] [id number] [address] [place] [phone] Jun, [facility] [address] [id number] [address] [place] [phone] Jun, [facility] [address] [id number] [address] [place] [phone] Jun, [facility] [address] [id number] [address] [place] [phone] Jun, [facility] [address] [id number] [address] [place] [phone] Jun, [facility] [address] [id number] [address] [place] [phone] Jun, [facility] [address] [id number] [address] [place] [phone] May, [facility] [address] [id number] [address] [place] [id number] May, [facility] [address] [id number] [address] [place] [id number] May, [facility], [facility] [address] [id number] [address] [place] [id number] May, [facility], [facility] [address] [id number] [address] [place] [id number] 16 May, 2014 [facility] [address] [id number] [address] [place] [address], [place] [id number] 16 May, 2014 [facility] [address] [id number] [address] [place] [address], [place] [id number] 13 May, 2014 [facility] [address] [id number] [address] [place] [address], [place] [id number] 13 May, 2014 [facility] [address] [id number] [address] [place] [address], [place] [id number] 10 May, 2014 [facility] [address] [id number] [address] [place] [address], [place] [id number] May, 2014 [facility] [address] [id number] [address] [place] [address], [place] [id number] Apr, [facility] [address] [id number] [address] [place] [address], [place] [id number] Apr, [facility] [address] [id number] [address] [place] [address], [place] [id number] Mar, [facility] [address] [id number] [address] [place] [address], [place] [address] Mar, [facility] [address] [id number] [address] [place] [address], [place] [address] Mar, [facility] [address] [id number] [address] [place] [address], [place] [address] 15 Mar, 2014 [facility] [address] [id number] [address] [place] [address], [place] [address] 15 Mar, 2014 [facility] [address] [id number] [address] [place] [address], [place] [address] Mar, [facility] [address] [id number] [address] [place] [address], [place] [address] Mar, [facility] [address] [id number] [address] [place] [address], [place] [address] 24 Feb, 2014 [facility] [address] [id number] [address] [place] [address], [place] [address] Feb, [facility] [address] [id number] [address] [place] [address], [place] [address] Feb, [facility] [address] [id number] [address] [place] [address], [place] [address] Jan, [facility] [address] [id number] [address] [place] [address], [place] [address] Jan, [facility] [address] [id number] [address] [place] [address], [place] [address] Jan, [facility] [address] [id number] [address] [place] [address], [place] [address] Jan, [facility] [address] [id number] [address] [place] [address], [place] [address] Jan, [facility] [address] [id number] [address] [place] [address], [place] [address] Jan, [facility] [address] [id number] [address] [place] [address], [place] [address] Jan, [facility] [address] [id number] [address] [place] [address], [place] [address] Jan, [facility] [address] [id number] [address] [place] [address], [place] [address] Jan, [facility] [address] [id number] [address] [place] [address], [place] [address] Jan, [facility] [address] [id number] [address] [place] [address], [place] [address] Nov, [facility] [address] [id number] [address] [place] [address], [place] [address] Nov, [facility] [address] [id number] [address] [place] [address], [place] [address] Nov, [facility] [address] [id number] [address] [place] [address], [place] [address] Oct, [facility] [address] [id number] [facility] [place] [address] 29 Oct, 2013 [facility] [address] [id number] [facility] [place] [address] Oct, [facility] [address] [id number] [facility] [place] [address] Oct, 2013 [facility] [address] [id number] [facility] [place] [address] Oct, 2013 [facility] [address] [id number] [facility] [place] [address] Oct, 2013 [facility] [address] [id number] [address] [place] [address], [place] [address] Oct, [facility] [address] [id number] [address] [place] [address], [place] [address] Oct, [facility] [address] [id number] [address] [place] [address], [place] [address] Oct, [facility] [address] [id number] [address] [place] [address], [place] [address] 30 Sep, 2013 [facility] [address] [id number] [address] [place] [address], [place] [address] Sep, [facility] [address] [id number] [address] [place] [address], [place] [address] 24 Sep, 2013 [facility] [address] [id number] [address] [place] [address], [place] [address] Sep, [facility] [address] [id number] [address] [place] [address], [place] [address] Sep, [facility] [address] [id number] [address] [place] [address], [place] [address] Sep, [facility] [address] [id number] [address] [place] [address], [place] [address] Sep, [facility] [address] [id number] [address] [place] [address], [place] [address] Sep, [facility] [address] [id number] [facility] [place] [address] Sep, [facility] [address] [id number] [address] [place] [address], [place] [address] August, [facility] [address] [id number] [address] [place] [address], [place] [address] August, [facility] [address] [id number] [address] [place] [address], [place] [address] August, [facility] [address] [id number] [address] [place] [address], [place] [address] August, [facility] [address] [id number] [address] [place] [address], [place] [address] August, [facility] [address] [id number] [address] [place] [address], [place] [address] August, [facility] [address] [id number] [address] [place] [address], [place] [address] Jul, [facility] [address] [id number] [address] [place] [address], [place] [address] Jul, [facility] [address] [id number] [address] [place] [address], [place] [address] Jul, [facility] [address] [id number] [address] [place] [address], [place] [address] Jul, [facility] [address] [id number] [address] [place] [address], [place] [address] Jul, [facility] [address] [id number] [address] [place] [address], [place] [address] Jul, [facility] [address] [id number] [address] [place] [address], [place] [address] Jun, [facility] [address] [id number] [address] [place] [address], [place] [address] Jun, [facility] [address] [id number] [address] [place] [address], [place] [address] 19 May, 2013 [facility] [address] [id number] [address] [place] [address], [place] [address] May, [facility] [address] [id number] [address] [place] [address], [place] [address] 10 May, 2013 [facility] [address] [id number] [address] [place] [address], [place] [address] May, [facility] [address] [id number] [address] [place] [address], [place] [address] Apr, [facility] [address] [id number] [address] [place] [address], [place] [address] Apr, [facility] [address] [id number] [address] [place] [address], [place] [address] 18 Mar, 2013 [facility] [address] [id number] [address] [place] [address], [place] [address] 18 Mar, 2013 [facility] [address] [id number] [address] [place] [address], [place] [address] 17 Mar, 2013 [facility] [address] [id number] [address] [place] [address], [place] [address] 17 Mar, 2013 [facility] [address] [id number] [address] [place] [address], [place] [address] 05 Mar, 2013 [facility] [address] [id number] [address] [place] [address], [place] [address] 05 Mar, 2013 [facility] [address] [id number] [address] [place] [address], [place] [address] 20 Feb, 2013 [facility] [address] [id number] [address] [place] [address], [place] [address] 20 Feb, 2013 [facility] [address] [id number] [address] [place] [address], [place] [address] 14 Feb, 2013 [facility] [address] [id number] [address] [place] [address], [place] [address] Feb, [facility] [address] [id number] [address] [place] [address], [place] [address] Feb, [facility] [address] [id number] [address] [place] [address], [place] [address] Feb, [facility] [address] [id number] [address] [place] [address], [place] [address] Jan, [facility] [address] [id number] [address] [place] [address], [place] [address] Jan, [facility] [address] [id number] [address] [place] [address], [place] [address] Jan, [facility] [address] [id number] [address] [place] [address], [place] [address] Jan, [facility] [address] [id number] [address] [place] [address], [place] [address] Jan, [facility] [address] [id number] [address] [place] [address], [place] [address] Jan, [facility] [address] [id number] [address] [place] [address], [place] [address] Dec, [facility] [address] [id number] [address] [place] [address] Dec, [facility] [address] [id number] [address] [place] [address] Nov, [facility] [address] [id number] [address] [place] [address] Nov, [facility] [address] [id number] [address] [place] [address], [place] [address] Oct, [facility] [address] [id number] [address] [place] [address], [place] [address] Oct, [facility] [address] [id number] [address] [place] [address] Oct, [facility] [address] [id number] [address] [place] [address] Oct, [facility] [address] [id number] [address] [place] [address], [place] [address] Oct, [facility] [address] [id number] [address] [place] [address], [place] [address] Oct, [facility] [address] [id number] [address] [place] [address], [place] [address] Sep, [facility] [address] [id number] [address] [place] [address], [place] [address] Sep, [facility] [address] [id number] [address] [place] [address], [place] [address] Sep, [facility] [address] [id number] [address] [place] [address], [place] [address] Sep, [facility] [address] [id number] [address] [place] [address], [place] [address] August, [facility] [address] [id number] [address] [place] [address], [place] [address] August, [facility] [address] [id number] [address] [place] [address], [place] [address] August, [facility] [address] [id number] [address] [place] [address], [place] [address] August, [facility] [address] [id number] [address] [place] [address], [place] [address] August, [facility] [address] [id number] [address] [place] [address], [place] [address] Jul, [facility] [address] [id number] [address] [place] [address], [place] [address] 18 Jul, 2012 [facility] [address] [id number] [address] [place] [address], [place] [address] 15 Jul, 2012 [facility] [address] [id number] [address] [place] [address], [place] [address] Jul, [facility] [address] [id number] [address] [place] [address], [place] [address] Jul, [facility] [address] [id number] [address] [place] [address], [place] [address] Jul, [facility] [address] [id number] [address] [place] [address], [place] [address] Jul, [facility] [address] [id number] [address] [place] [address], [place] [address] Jul, [facility] [address] [id number] [address] [place] [address], [place] [address] Jul, [facility] [address] [id number] [address] [place] [address], [place] [address] Jul, [facility] [address] [id number] [place] [id number] Jun, [facility] [address] [id number] [address] [place] [address], [place] [address] Jun, [facility] [address] [id number] [address] [place] [address], [place] [address] Jun, [facility] [address] [id number] [address] [place] [address], [place] [address] Jun, [facility] [address] [id number] [address] [place] [address], [place] [address] Jun, [facility] [address] [id number] [address] [place] [address], [place] [address] May, [facility] [address] [id number] [address] [place] [address], [place] [address] May, [facility] [address] [id number] [address] [place] [address], [place] [address] May, [facility] [address] [id number] [address] [place] [address], [place] [address] Apr, [facility] [address] [id number] [address] [place] [address], [place] [address] Apr, [facility] [address] [id number] [address] [place] [address], [place] [address] Apr, [facility] [address] [id number] [address] [place] [address], [place] [address] Apr, [facility] [address] [id number] [address] [place] [address], [place] [address] Apr, [facility] [address] [id number] [address] [place] [address], [place] [address] Apr, [facility] [address] [id number] [address] [place] [address], [place] [address] Mar, [facility] [address] [id number] [address] [place] [address], [place] [address] Mar, [facility] [address] [id number] [address] [place] [address], [place] [address] Mar, [facility] [address] [id number] [address] [place] [address], [place] [address] Mar, [facility] [address] [id number] [address] [place] [address], [place] [address] Feb, [facility] [address] [id number] [address] [place] [address], [place] [address] Feb, [facility] [address] [id number] [address] [place] [address], [place] [address] Feb, [facility] [address] [id number] [address] [place] [address], [place] [address] Feb, [facility] [address] [id number] [address] [place] [address], [place] [address] Feb, [facility] [address] [id number] [address] [place] [address], [place] [address] Feb, [facility] [address] [id number] [address] [place] [address], [place] [address] Feb, [facility] [address] [id number] [address] [place] [address], [place] [address] Feb, [facility] [address] [id number] [address] [place] [address], [place] [address] Feb, [facility] [address] [id number] [address] [place] [address], [place] [address] Feb, [facility] [address] [id number] [address] [place] [address], [place] [address] Feb, [facility] [address] [id number] [address] [place] [address], [place] [address] Feb, [facility] [address] [id number] [address] [place] [address], [place] [address] Feb, [facility] [address] [id number] [address] [place] [address], [place] [address] Feb, [facility] [address] [id number] [address] [place] [address], [place] [address] Feb, [facility] [address] [id number] [address] [place] [address], [place] [address] Feb, [facility] [address] [id number] [address] [place] [address], [place] [address] Jan, [facility] [address] [id number] [address] [place] [address], [place] [address] Jan, [facility] [address] [id number] [address] [place] [address], [place] [address] Jan, [facility] [address] [id number] [address] [place] [address] Jan, [facility] [address] [id number] [address] [place] [address], [place] [address] 30 Jan, 2012 [facility] [address] [id number] [address] [place] [address], [place] [address] Jan, [facility] [address] [id number] [address] [place] [address] Jan, [facility] [address] [id number] [address] [place] [address], [place] [address] 16 Jan, 2012 [facility] [address] [id number] [address] [place] [address], [place] [address] 16 Jan, 2012 [facility] [address] [id number] [address] [place] [address], [place] [address] 15 Jan, 2012 [facility] [address] [id number] [address] [place] [address], [place] [address] 15 Jan, 2012 [facility] [address] [id number] [address] [place] [address], [place] [address] 01 Jan, 2012 [facility] [address] [id number] [address] [place] [address], [place] [address] 26 Sep, 2011 [facility] [address] [id number] [address] [place] [address], [place] [address] 26 Sep, 2011 [facility] [address] [id number] [address] [place] [address], [place] [address] 24 Sep, 2011 [facility] [address] [id number] [address] [place] [address], [place] [address] 23 Sep, 2011 [facility] [address] [id number] [address] [place] [address], [place] [address] 22 Sep, 2011 [facility] [address] [id number] [address] [place] [address], [place] [address] 21 Sep, 2011 [facility] [address] [id number] [address] [place] [address], [place] [address] 20 Sep, 2011 [facility] [address] [id number] [address] [place] [address], [place] [address] 20 Sep, 2011 [facility] [address] [id number] [address] [place] [address], [place] [address] 07 Sep, 2011 [facility] [address] [id number] [address] [place] [address], [place] [address] 06 Sep, 2011 [facility] [address] [id number] [address] [place] [address], [place] [address] 06 Dec, 2011 [facility] [address] [id number] [address] [place] [address], [place] [address] 05 Dec, 2011 [facility] [address] [id number] [address] [place] [address], [place] [address] Nov, [facility] [address] [id number] [address] [place] [address], [place] [address] Nov, [facility] [address] [id number] [address] [place] [address], [place] [address] Nov, [facility] [address] [id number] [address] [place] [address], [place] [address] Nov, [facility] [address] [id number] [address] [place] [address], [place] [address] Nov, [facility] [address] [id number] [address] [place] [address], [place] [address] Nov, [facility] [address] [id number] [address] [place] [address], [place] [address] Nov, [facility] [address] [id number] [address] [place] [address], [place] [address] Nov, [facility] [address] [id number] [address] [place] [address], [place] [address] Oct, [facility] [address] [id number] [address] [place] [address], [place] [address] Oct, [facility] [address] [id number] [address] [place] [address], [place] [address] Oct, [facility] [address] [id number] [address] [place] [address], [place] [address] Oct, [facility] [address] [id number] [address] [place] [address], [place] [address] Oct, [facility] [address] [id number] [address] [place] [address], [place] [address] Oct, [facility] [address] [id number] [address] [place] [address], [place] [address] Oct, [facility] [address] [id number] [address] [place] [address], [place] [address] Sep, [facility] [address] [id number] [address] [place] [address], [place] [address] Sep, [facility] [address] [id number] [address] [place] [address], [place] [address] August, [facility] [address] [id number] [address] [place] [address], [place] [address] August, [facility] [address] [id number] [address] [place] [address], [place] [address] August, [facility] [address] [id number] [address] [place] [address], [place] [address] August, [facility] [address] [id number] [address] [place] [address], [place] [address] Jul, [facility] [address] [id number] [address] [place] [address], [place] [address] Jul, [facility] [address] [id number] [address] [place] [address], [place] [address] Jul, [facility] [address] [id number] [address] [place] [address], [place] [address] Jul, [facility] [address] [id number] [address] [place] [address], [place] [address] Jul, [facility] [address] [id number] [address] [place] [address], [place] [address] Jul, [facility] [address] [id number] [address] [place] [address], [place] [address] Jul, [facility] [address] [id number] [address] [place] [address], [place] [address] Jul, [facility] [address] [id number] [address] [place] [address], [place] [address] Jul, [facility] [address] [id number] [address] [place] [address], [place] [address] 23 Jun, 2011 [facility] [address] [id number] [address] [place] [address], [place] [address] 19 Jun, 2011 [facility] [address] [id number] [address] [place] [address], [place] [address] 15 Jun, 2011 [facility] [address] [id number] [address] [place] [address], [place] [address] 14 Jun, 2011 [facility] [address] [id number] [address] [place] [address], [place] [address] 12 Jun, 2011 [facility] [address] [id number] [address] [place] [address], [place] [address] 09 Jun, 2011 [facility] [address] [id number] [address] [place] [address], [place] [address] Jun, [facility] [address] [id number] [address] [place] [address], [place] [address] 25 May, 2011 [facility] [facility] [address] [id number] [address] [place] [address], [place] [address] 24 May, 2011 [facility] [address] [id number] [address] [place] [address], [place] [address] 16 May, 2011 [facility] [address] [id number] [address] [place] [address], [place] [address] 16 May, 2011 [facility] [address] [id number] [address] [place] [address], [place] [address] May, [facility] [address] [id number] [address] [place] [address], [place] [address] Apr, [facility] [address] [id number] [address] [place] [address], [place] [address] Apr, [facility] [address] [id number] [address] [place] [address], [place] [address] Apr, [facility] [address] [id number] [address] [place] [address], [place] [address] Apr, [facility] [address] [id number] [address] [place] [address], [place] [address] Apr, [facility] [address] [id number] [address] [place] [address], [place] [address] Mar, [facility] [address] [id number] [address] [place] [address], [place] [address] Mar, [facility] [address] [id number] [address] [place] [address], [place] [address] Mar, [facility] [address] [id number] [address] [place] [address], [place] [address] Mar, [facility] [address] [id number] [address] [place] [address], [place] [address] Mar, [facility] [address] [id number] [address] [place] [address], [place] [address] Mar, [facility] [address] [id number] [address] [place] [address], [place] [address] Mar, [facility] [address] [id number] [address] [place] [address], [place] [address] Feb, [facility] [address] [id number] [address] [place] [address], [place] [address] Feb, [facility] [address] [id number] [address] [place] [address], [place] [address] Feb, [facility] [address] [id number] [address] [place] [address], [place] [address] Feb, [facility] [address] [id number] [address] [place] [address], [place] [address] Jan, [facility] [address] [id number] [address] [place] [address], [place] [address] Jan, [facility] [address] [id number] [address] [place] [id number] Jan, [facility] [address] [id number] [address] [place] [phone] Jan, [facility] [address] [id number] [address] [place] [phone] Nov, [facility] [address] [id number] [address] [place] [phone] Mar, [facility] [address] [id number] [address] [place] [phone] Mar, [facility] [address] [id number] [address] [place] [phone] Mar, [facility] [address] [id number] [address] [place] [phone] Mar, [facility] [address] [id number] [address] [place] [id number] Mar, [facility] [address] [id number] [address] [place] [phone] Mar, [facility] [address] [id number] [address] [place] [phone] Feb, [facility] [address] [id number] [address] [place] [phone] Feb, [facility] [address] [id number] [address] [place] [phone] Jan, [facility] [address] [id number] [address] [place] [phone] Jan, [facility] [address] [id number] [address] [place] [phone] Jan, IMMUNIZATIONS No Known Immunizations SOCIAL HISTORY [...] Medical History renal disease-stage 4 Medical History [place] diverticulum was to temitope [place] for this but cant affects swallowing. had a swallow study Medical History Closed fracture of lateral malleolus Medical History Female stress incontinence Medical History [place] Medical History arthritis Medical History CT chest 05/2017 revealed hyp odensity of paratracheal region. Radiologist rec CT 3-6 months with contrast Medical History Anemia, normocytic Medical History CPAP Noncompliance_ Dr. Madden advises a [employer] driving. Medical History Bacterial meningitis 12/2016 Medical [...] 09-2015 & 2007 Surgical History Bladder surgery [facility] 03/2016 Surgical History Neurotransmitter placed 10/2017 Surgical [...]
--- OUTSIDE RECORDS SUMMARY | 2019-08-01 10:09 | XMS REPORT ---
Author Author Lola Tyson Doctor Organization [facility] Address Unknown Phone Unavailable Care Team Providers Care Hris Administrator Name Role Phone Migration, Doctor Unavailable Unavailable PROBLEMS Type Condition ICD9-CM Code [id number] Code Onset Dates Condition S tatus SNOMED Code Problem Hypothyroid E03.9 Active 34079027 Problem Asthma J45.909 Active 587914617 Problem Insomnia G47.00 Active 869564961 Problem Depressed F32.9 Active 98795591 Problem Palpitations R00.2 Active 5835921 2 Problem Functional diarrhea K59.1 Active 23893082 Problem Chronic kidney disease, stage 4 (severe) N18.4 Active 794348121 Problem Degenerative tear of medial meniscus of left knee M23.204 Active 844297840 Problem Dysthymic disorder F34.1 Active 7 8364614 Problem Primary osteoarthritis of left knee M17.12 Active 028331108 Problem Generalized anxiety disorder F41.1 A ctive 83231776 Problem Restless leg G25.81 Active 0557190 8 Problem Coronary artery disease invo lving deering coronary artery of deering heart, angina presence unspecified I25.10 Active 6142904900613 Problem Hypokalemia E87.6 Active 26915072 Problem Other seasonal allergic rhinitis J30.2 Active 382091063 Problem Mixed stress and urge urinary incontinence N39.46 Active 908627286 Problem Fibromyalgia M79.7 Active 9520513 05 Problem Essential (primary) hypertension I10 Active 86307103 Problem Long-term use of high-risk medication Z79.899 Active 610630203 Problem Vitamin D deficiency E55.9 Active 73421855 Problem Anemia in chronic kidney disease D63.1 Active 703265310314507 Problem Low back pain M54.5 Active 354801 009 Problem Chronic kidney disease, unspecified N18.9 Active 559970879 Problem Abnormal chest CT R93.8 Active 44 8760909 Problem Mood disorder F39 Active 826056 05 Problem Stage 3 chronic kidney disease N18.3 Active 158757924 Problem Body mass index (BMI) of 40.0-44.9 in adult Z68.41 Active 334221045 Problem Other chronic pain G89.29 Active 8 4024652 Problem Asthma with acute exacerbation in adult J45.901 Active 760954427 Problem Major depressive disorder, recurrent, moderate F33 .1 Active 186640134 Problem History of colon polyps Z86.010 Active 148562712 Problem History of anemia Z86.2 Active 27 3093491 Problem Seasonal allergic rhinitis due to pollen J30.1 Active 26757307 Problem Restless leg syndrome G25.81 Active 38224905 Problem Chronic pain syndrome G89.4 Active 387341170 Problem Perimenopausal vasomotor symptoms N95.1 Active 547841326 ALLERGIES No Information ENCOUNTERS Encounter Location Date Diagnosis [facility] [address] [facility] [id number] [address] [place] [address] Jan, [facility] [address] [facility] [id number] [address] [place] [address] Dec, [facility] [address] [facility] [id number] [address] [place] [address] Dec, [facility] [address] [facility] [id number] [address] [place] [phone] Dec, [facility] [address] [facility] [id number] [address] [place] [address] Nov, Major depressive disorder, r ecurrent, moderate F33.1 ; Generalized anxiety disorder F41.1 and Dysthymic disorder F34.1 [facility] [address] [facility] [id number] [address] [place] [address] Nov, [facility] [address] [facility] [id number] [address] [place] [phone] Nov, Chronic pain syndrome G89.4 [facility] [address] [facility] [id number] [address] [place] [phone] 05 Nov, 2018 Restless leg syndrome G25.81 [facility] [address] [facility] [id number] [address] [place] [phone] 02 Nov, 2018 Pain in right shoulder M25.5 11 ; Restless leg syndrome G25.81 ; Other chronic pain G89.29 ; Screening for breast cancer Z12.39 ; Insomnia G47.00 and Morbid obesity E66.01 [facility] [address] [id number] [address] [place] [phone] Nov, [facility] [address] [facility] [id number] [address] [place] [phone] Oct, Major depressive disorder, r ecurrent, moderate F33.1 ; Generalized anxiety disorder F41.1 and Dysthymic disorder F34.1 [facility] [address] [id number] [address] [place] [phone] Oct, [facility] [address] [id number] [address] [place] [phone] Oct, Cellulitis of left lower ext remity L03.116 and Morbid obesity E66.01 [facility] [address] [facility] [id number] [address] [place] [phone] Oct, [facility] [address] [id number] [address] [place] [phone] Oct, [facility] [address] [facility] [id number] [address] [place] [address] Oct, Generalized anxiety disorder F41.1 and Major depressive disorder, recurrent episode with anxious distress F33.9 [facility] [address] [facility] [id number] [address] [place] [phone] Oct, [facility] [address] [facility] [id number] [address] [place] [phone] Oct, Chronic pain syndrome G89.4 [facility] [address] [id number] [address] [place] [address] Oct, Chronic pain syndrome G89.4 [facility] [address] [facility] [id number] [address] [place] [address] Oct, UTI symptoms R39.9 ; Acute c ystitis without hematuria N30.00 and Morbid obesity E66.01 [facility] [address] [id number] [address] [place] [address] Oct, [facility] [address] [facility] [id number] [address] [place] [phone] Oct, Chronic pain syndrome G89.4 [facility] [address] [id number] [address] [place] [address] Sep, [facility] [address] [id number] [address] [place] [phone] Sep, Generalized anxiety disorder F41.1 and Major depressive disorder, recurrent episode with anxious distress F33.9 [facility] [address] [facility] [id number] [address] [place] [address] Sep, Chronic kidney disease, 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 [facility] [address] [id number] [address] [place] [address] Sep, Fibromyalgia M79.7 and Chron ic pain syndrome G89.4 [facility] [address] [id number] [address] [place] [address] Sep, [address] [id number] Sep, Chronic pain syndrome G89.4 [facility] [address] [facility] [id number] [address] [place] [phone] Sep, [facility] [address] [facility] [id number] [address] [place] [address] Sep, Chronic pain syndrome G89.4 ; Fibromyalgia M79.7 and Morbid obesity E66.01 [facility] [address] [id number] [address] [place] [address] August, Generalized anxiety disorder F41.1 and Major depressive disorder, recurrent episode with anxious distress F33.9 [facility] [address] [facility] [id number] [address] [place] [address] August, Fibromyalgia M79.7 [facility] [address] [facility] [id number] [address] [place] [address] August, Restless leg syndrome G25.81 ; Vitamin D deficiency E55.9 ; Urinary tract infection without hematuria, site unspecified N39.0 ; Pain in right shoulder M25.511 ; Other chronic pain G89.29 ; Biceps tendinitis on right M75.21 and Morbid obesity E66.01 [facility] [address] [id number] [address] [place] [address] Jul, Urinary tract infection with out hematuria, site unspecified N39.0 and Morbid obesity E66.01 [facility] [address] [id number] [address] [place] [address] Jul, [place] [address] [facility] [id number] [address] [place] [address] Jul, [place] [address] [facility] [id number] [address] [place] [phone] Jul, Fibromyalgia M79.7 [facility] [address] [facility] [id number] [address] [place] [address] Jul, Acute pain of right shoulder M25.511 [place] [address] [facility] [id number] [address] [place] [address] Jul, Acute pain of right shoulder M25.511 and Morbid obesity E66.01 [facility] [address] [id number] [address] [place] [phone] Jun, [facility] [address] [facility] [id number] [address] [place] [address] Jun, Generalized anxiety disorder F41.1 and Major depressive disorder, recurrent episode with anxious distress F33.9 [facility] [address] [id number] [address] [place] [address] Jun, [facility] [address] [facility] [id number] [address] [place] [phone] Jun, Fibromyalgia M79.7 [facility] [address] [id number] [address] [place] [address] 04 Jun, 2018 Acute pain of right shoulder M25.511 ; Acute pain of right hip M25.551 and Morbid obesity E66.01 [facility] [address] [place] [id number] [address] [place] [id number] 11 May, 2018 Burning with urination R30.0 ; Vaginal discharge N89.8 ; Chronic kidney disease, stage 4 (severe) N18.4 ; Body mass index (BMI) of 40.0-44.9 in adult Z68.41 and Morbid obesity E66.01 [facility] [address] [place] [id number] [address] [place] [address] 07 May, 2018 Fibromyalgia M79.7 [place] [address] [id number] 06 May, 2018 Generalized anxiety disorder F41.1 and Major depressive disorder, recurrent episode with anxious distress F33.9 [place] [address] [address] Apr, [facility] [address] [address] Apr, Fibromyalgia M79.7 [facility] [address] [place] [id number] [address] [place] [address] Mar, Acute UTI N39.0 and Dysuria R30.0 [place] [address] [address] Mar, Fibromyalgia M79.7 [facility] [address] [place] [id number] [address] [place] [id number] Feb, [facility] [address] [id number] Feb, [facility] [address] [place] [id number] [place] [phone] Feb, [facility] [address] [place] [id number] [place] [address] Feb, Fibromyalgia M79.7 [facility] [address] [id number] [address] [place] [phone] Feb, Complicated UTI (urinary tra ct infection) N39.0 [facility] [address] [id number] [address] [place] [phone] Feb, [facility] [address] [id number] [address] [place] [phone] Jan, Generalized anxiety disorder F41.1 and Major depressive disorder, recurrent episode with anxious distress F33.9 [facility] [address] [id number] [address] [place] [phone] Jan, Acute conjunctivitis of left eye, unspecified acute conjunctivitis type H10.32 [facility] [address] [id number] [address] [place] [address] Jan, [facility] [address] [facility] [id number] [address] [place] [phone] Jan, Acute non-recurrent maxillar y sinusitis J01.00 ; Dysuria R30.0 ; Perimenopausal vasomotor symptoms N95.1 and Fibromyalgia M79.7 [facility] [address] [id number] [address] [place] [address] Dec, Vitamin D deficiency E55.9 [facility] [address] [id number] [address] [place] [phone] Dec, Vitamin D deficiency E55.9 [facility] [address] [id number] [address] [place] [phone] 24 Dec, 2017 Vitamin D deficiency E55.9 [facility] [address] [id number] [address] [place] [phone] 12 Dec, 2017 [facility] [address] [facility] [id number] [address] [place] [phone] Dec, Fibromyalgia M79.7 [facility] [address] [facility] [id number] [address] [place] [phone] Nov, [facility] [address] [id number] [address] [place] [address] Nov, [facility] [address] [id number] [address] [place] [phone] Nov, [facility] [address] [id number] [address] [place] [phone] Nov, Fibromyalgia M79.7 ; Vision changes H53.9 ; Chest wall pain R07.89 and Chronic pain syndrome G89.4 [facility] [address] [id number] [address] [place] [address] Nov, [facility] [address] [id number] [address] [place] [phone] Nov, Rash of hands R21 [facility] [address] [id number] [address] [place] [phone] Nov, Generalized anxiety disorder F41.1 and Major depressive disorder, recurrent episode with anxious distress F33.9 [facility] [address] [id number] [address] [place] [phone] Nov, Fibromyalgia M79.7 [facility] [address] [id number] [address] [place] [phone] Nov, Complicated UTI (urinary tra ct infection) N39.0 [facility] [address] [id number] [address] [place] [phone] Oct, [facility] [address] [id number] [address] [place] [phone] Oct, Generalized anxiety disorder F41.1 and Major depressive disorder, recurrent episode with anxious distress F33.9 [facility] [address] [id number] [address] [place] [address] Oct, [facility] [address] [id number] [address] [place] [address] Oct, Fibromyalgia M79.7 [facility] [address] [id number] [address] [place] [phone] Sep, Restless leg syndrome G25.81 and Restless leg G25.81 [facility] [address] [place] [id number] [address] [place] [address] Sep, [facility] [address] [place] [id number] [address] [place] [address] Sep, Seasonal allergic rhinitis d ue to pollen J30.1 ; Screening for breast cancer Z12.31 ; Chest pain at rest R07.9 ; Restless leg syndrome G25.81 ; Essential (primary) hypertension I10 and Depressed F32.9 [facility] [address] [address] August, Fibromyalgia M79.7 [place] [address] [address] August, [facility] [address] [address] August, [facility] [address] [place] [id number] [address] [place] [address] August, Abnormal chest CT R93.8 [place] [address] [address] August, Generalized anxiety disorder F41.1 and Major depressive disorder, recurrent episode with anxious distress F33.9 [facility] [address] [place] [id number] [address] [place] [address] August, Abnormal chest CT R93.8 [place] [address] [place] [id number] [address] [place] [address] Jul, [facility] [address] [address] Jul, Chronic kidney disease, 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 [facility] [address] [place] [id number] [address] [place] [address] Jul, [facility] [address] [facility] [id number] [address] [place] [address] Jul, Restless leg G25.81 ; Mixed stress and urge urinary incontinence N39.46 and Fibromyalgia M79.7 [facility] [address] [facility] [id number] [address] [place] [address] Jul, Chronic kidney disease, 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 [facility] [address] [facility] [id number] [address] [place] [phone] Jun, Orthostatic hypotension I95. 1 ; Chronic kidney disease, stage 4 (severe) N18.4 ; Chest wall discomfort R07.89 and Body mass index (BMI) of 40.0- 44.9 in adult Z68.41 [place] [address] [facility] [id number] [address] [place] [address] Jun, [facility] [address] [place] [id number] [address] [place] [address] Jun, Orthostatic hypotension I95. 1 [facility] [address] [facility] [id number] [address] [place] [phone] Jun, [facility] [address] [facility] [id number] [address] [place] [address] Jun, Orthostatic hypotension I95. 1 ; Dysuria R30.0 and Acute cystitis without hematuria N30.00 [facility] [address] [facility] [id number] [address] [place] [id number] Jun, [facility] [address] [facility] [id number] [address] [place] [address] Jun, Chronic kidney disease, 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 [facility] [address] [facility] [id number] [address] [place] [address] Jun, Fibromyalgia M79.7 [facility] [address] [place] [id number] [address] [place] [address] Jun, [facility] [address] [place] [id number] [address] [place] [address] Jun, [facility] [address] [id number] [address] [place] [address] May, Abnormal chest CT R93.8 and Stage 3 chronic kidney disease N18.3 [facility] [address] [id number] [address] [place] [phone] May, Chronic kidney disease, 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 [facility] [address] [id number] [address] [place] [address] May, Chronic kidney disease, 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 [facility] [address] [id number] [address] [place] [address] May, Abnormal chest [address] R93.8 [facility] [address] [id number] [address] [place] [address] May, [facility] [address] [id number] [address] [place] [address] May, [facility] [address] [id number] [address] [place] [address] May, Generalized anxiety disorder F41.1 and Major depressive disorder, recurrent episode with anxious distress F33.9 [facility] [address] [id number] [address] [place] [address] May, Mood disorder F39 [facility] [address] [id number] [address] [place] [address] Apr, [facility] [address] [id number] [address] [place] [address] Apr, Infected skin lesion L08.9 a nd Muscle strain of right shoulder region, initial encounter S46.911A [facility] [address] [id number] [address] [place] [address] Apr, Generalized anxiety disorder F41.1 and Major depressive disorder, recurrent episode with anxious distress F33.9 [facility] [address] [id number] [address] [place] [address] Apr, [facility] [address] [id number] [address] [place] [address] Apr, Recent urinary tract infecti on Z87.440 and Hypothyroid E03.9 [facility] [address] [id number] [address] [place] [address] Apr, Generalized anxiety disorder F41.1 and Major depressive disorder, recurrent episode with anxious distress F33.9 [facility] [address] [id number] [address] [place] [address] Apr, Recent urinary tract infecti on Z87.440 [facility] [address] [id number] [address] [place] [phone] Mar, [facility] [address] [id number] [address] [place] [address] Mar, Dysuria R30.0 ; Acute cystit is without hematuria N30.00 and BMI 40.0-44.9, adult Z68.41 [place] [address] [id number] [address] [place] [phone] Mar, [facility] [address] [id number] [address] [place] [address] Mar, [facility] [address] [id number] [address] [place] [phone] Mar, Generalized anxiety disorder F41.1 and Major depressive disorder, recurrent episode with anxious distress F33.9 [facility] [address] [id number] [address] [place] [phone] Feb, Conjunctivitis, bacterial H1 0.9 [facility] [address] [id number] [address] [place] [phone] Feb, [facility] [address] [id number] [address] [place] [phone] 15 Feb, 2017 Conjunctivitis, bacterial H1 0.9 [facility] [address] [place] [id number] [address] [place] [id number] Feb, [facility] [address] [place] [id number] [place] [phone] Feb, Dysuria R30.0 ; Acute cystit is N30.00 and BMI 40.0-44.9, adult Z68.41 [facility] [address] [id number] Feb, [facility] [address] [phone] Feb, Generalized anxiety disorder F41.1 and Major depressive disorder, recurrent episode with anxious distress F33.9 [place] [address] [phone] Feb, Mood disorder F39 and BMI 40 .0-44.9, adult Z68.41 [facility] [address] [id number] Jan, [place] [address] [phone] Jan, [place] [address] [id number] Jan, Hypothyroid E03.9 [facility] [address] [id number] Jan, [place] [address] [id number] Jan, Chronic kidney disease, unsp ecified N18.9 ; Hypokalemia E87.6 ; Essential (primary) hypertension I10 ; Fibromyalgia M79.7 ; Coronary artery disease involving deering coronary artery of deering heart, angina presence unspecified I25.10 ; Hypothyroid E03.9 and Encounter for immunization Z23 [facility] [address] [id number] Jan, Hypothyroid E03.9 [facility] [address] [id number] [address] [place] [phone] 02 Jan, 2017 [facility] [address] [id number] [address] [place] [id number] 28 Dec, 2016 Vitamin D deficiency E55.9 [facility] [address] [id number] [address] [place] [id number] 28 Dec, 2016 Primary osteoarthritis of le ft knee M17.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 [facility] [address] [id number] [address] [place] [id number] 19 Dec, 2016 Fibromyalgia M79.7 [facility] [address] [id number] [address] [place] [id number] 18 Dec, 2016 Mood disorder F39 [facility] [address] [id number] [address] [place] [id number] 13 Dec, 2016 [facility] [address] [id number] [address] [place] [id number] 13 Dec, 2016 Generalized anxiety disorder F41.1 and Major depressive disorder, recurrent episode with anxious distress F33.9 [facility] [address] [id number] [address] [place] [id number] 11 Dec, 2016 [facility] [address] [id number] [address] [place] [id number] 08 Dec, 2016 Streptococcal meningitis G00 .2 [facility] [address] [id number] [address] [place] [id number] 07 Dec, 2016 Streptococcal meningitis G00 .2 [facility] [address] [id number] [address] [place] [id number] 07 Dec, 2016 [facility] [address] [id number] [address] [place] [id number] 06 Dec, 2016 Streptococcal meningitis G00 .2 [facility] [address] [id number] [address] [place] [phone] Dec, [facility] [address] [facility] [id number] [address] [place] [phone] Dec, Major depressive disorder, r ecurrent episode with anxious distress F33.9 [facility] [address] [facility] [id number] [address] [place] [id number] Nov, Fever, unspecified fever cau se R50.9 [facility] [address] [facility] [id number] [address] [place] [phone] Nov, [facility] [address] [facility] [id number] [address] [place] [id number] Nov, Hypothyroid E03.9 [facility] [address] [facility] [id number] [address] [place] [phone] Nov, Generalized anxiety disorder F41.1 and Major depressive disorder, recurrent episode with anxious distress F33.9 [facility] [address] [facility] [id number] [address] [place] [id number] Nov, [facility] [address] [facility] [id number] [address] [place] [id number] Oct, Dental examination Z01.20 [facility] [address] [facility] [id number] [address] [place] [id number] Oct, Generalized anxiety disorder F41.1 and Major depressive disorder, recurrent episode with anxious distress F33.9 [facility] [address] [facility] [id number] [address] [place] [phone] Oct, Chronic kidney disease, 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 [facility] [address] [facility] [id number] [address] [place] [phone] Oct, [facility] [address] [facility] [id number] [address] [place] [phone] Oct, Fibromyalgia M79.7 [facility] [address] [facility] [id number] [address] [place] [phone] Oct, [facility] [id number] [place] [phone] Oct, Generalized anxiety disorder F41.1 ; Major depressive disorder, recurrent episode with anxious distress F33.9 and Bipolar disorder, current episode manic without psychotic features F31.10 [place] [address] [place] [id number] [address] [place] [phone] Sep, [place] [address] [place] [id number] [address] [place] [phone] Sep, [place] [address] [address] Sep, Vitamin D deficiency E55.9 [place] [address] [address] Sep, Vitamin D deficiency E55.9 [place] [address] [id number] Sep, [place] [address] [address] Sep, Chronic kidney disease, 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 ; Hypothyroid E03.9 ; Restless leg G25.81 ; Fibromyalgia M79.7 ; Essential (primary) hypertension I10 ; Vitamin D deficiency E55.9 ; Dyspepsia R10.13 ; Anemia in chronic kidney disease D63.1 ; Chronic kidney disease, unspecified N18.9 ; Coronary artery disease involving deering coronary artery of deering heart, angina presence unspecified I25.10 ; Screening breast examination Z12.39 and Low back pain M54.5 [place] [address] [place] [id number] [address] [place] [address] August, Generalized anxiety disorder F41.1 and Major depressive disorder, recurrent episode with anxious distress F33.9 [place] [address] [place] [id number] [address] [place] [id number] August, Generalized anxiety disorder F41.1 and Major depressive disorder, recurrent episode with anxious distress F33.9 [place] [address] [address] August, Fibromyalgia M79.7 [place] [address] [address] Jul, Generalized anxiety disorder F41.1 and Major depressive disorder, recurrent episode with anxious distress F33.9 [place] [address] [address] Jul, Fibromyalgia M79.7 [place] [address] [address] Jul, Generalized anxiety disorder F41.1 [place] [address] [address] May, [place] [address] [address] May, Hypothyroid E03.[address] [address] May, Chronic kidney disease, 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 ; Hypothyroid E03.9 ; Restless leg G25.81 ; Fibromyalgia M79.7 ; Essential (primary) hypertension I10 ; Vitamin D deficiency E55.9 ; Dyspepsia R10.13 ; Acute non-recurrent maxillary sinusitis J01.00 ; Anemia in chronic kidney disease D63.1 ; Chronic kidney disease, unspecified N18.9 and Coronary artery disease involving deering coronary artery of deering heart, angina presence unspecified I25.10 [place] [address] [id number] May, Vitamin D deficiency, unspec ified E55.[address] [address] May, Generalized anxiety disorder F41.1 and Major depressive disorder, recurrent episode with anxious distress F33.[address] [address] Apr, Pain in right knee M25.561 a nd Pain in left knee M25.562 [facility] [address] [facility] [id number] [address] [place] [phone] Apr, [facility] [address] [facility] [id number] [address] [place] [id number] Apr, [facility] [address] [facility] [id number] [address] [place] [id number] Apr, [facility] [address] [facility] [id number] [address] [place] [id number] Mar, Generalized anxiety disorder F41.1 and Major depressive disorder, recurrent episode with anxious distress F33.9 [place] [address] [place] [id number] [address] [place] [address] Mar, Generalized anxiety disorder F41.1 and Major depressive disorder, recurrent episode with anxious distress F33.9 [place] [address] [place] [id number] [address] [place] [phone] Mar, [facility] [address] [place] [id number] [address] [place] [phone] Mar, [place] [address] [place] [id number] [address] [place] [address] Mar, [place] [address] [place] [id number] [address] [place] [address] Mar, Asthma J45.909 and Fibromyal elvira M79.7 [place] [address] [place] [id number] [address] [place] [address] Mar, Chronic kidney disease, 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 ; Vitamin D deficiency E55.9 and Essential (primary) hypertension I10 [place] [address] [facility] [id number] [address] [place] [id number] Feb, [place] [address] [place] [id number] [address] [place] [address] Feb, Dysuria R30.0 ; Mixed stress and urge urinary incontinence N39.46 ; Fibromyalgia M79.7 and Chronic kidney disease, stage IV (severe) N18.4 [facility] [address] [facility] [id number] [address] [place] [id number] Feb, Chronic kidney disease, 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 [facility] [address] [facility] [id number] [address] [place] [id number] Feb, Chronic kidney disease, 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 [facility] [address] [id number] [address] [place] [id number] Feb, [facility] [address] [facility] [id number] [address] [place] [address] Feb, Vitamin D deficiency, unspec ified E55.9 [facility] [address] [facility] [id number] [address] [place] [phone] Jan, [facility] [address] [facility] [id number] [address] [place] [phone] Jan, [facility] [address] [facility] [id number] [address] [place] [phone] 30 Dec, 2015 [facility] [address] [facility] [id number] [address] [place] [phone] Dec, Chronic kidney disease, 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 [facility] [address] [facility] [id number] [address] [place] [address] Dec, Dysthymic disorder F34.1 and Generalized anxiety disorder F41.1 [facility] [address] [facility] [id number] [address] [place] [phone] Dec, [facility] [address] [facility] [id number] [address] [place] [phone] Dec, [facility] [address] [facility] [id number] [address] [place] [address] Dec, Dysthymic disorder F34.1 and Generalized anxiety disorder F41.1 [facility] [address] [address] 08 Dec, 2015 Dysuria R30.0 ; Chronic kidn ey disease, stage 4 (severe) N18.4 ; Hypertension I10 ; Dyspepsia R10.13 ; Yeast dermatitis B37.2 ; Palpitations R00.2 ; Hypothyroid E03.9 ; Functional diarrhea K59.1 and Other seasonal allergic rhinitis J30.2 [facility] [address] [address] 04 Dec, 2015 [facility] [address] [address] 30 Nov, 2015 Dysuria R30.0 and Stress inc ontinence N39.3 [place] [address] [address] Nov, [place] [address] [address] Nov, [place] [address] [address] Nov, Osteoarthritis of knees, jose ateral M17.0 [place] [address] [address] Nov, Dysthymic disorder F34.1 and Generalized anxiety disorder F41.1 [place] [address] [address] Nov, [place] [address] [address] Nov, [place] [address] [address] Nov, Urgency of urination R39.15 [place] [address] [address] Nov, [place] [address] [address] Nov, Chronic kidney disease, 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 [place] [id number] [place] [id number] [place] [address] Oct, Hypertension I10 ; Coronary artery disease involving deering coronary artery of deering heart, angina presence unspecified I25.10 ; Palpitations R00.2 ; Hypothyroid E03.9 ; Right foot pain M79.671 ; Functional diarrhea K59.1 and Other seasonal allergic rhinitis J30.2 [facility] [address] [facility] [id number] [address] [place] [address] Oct, Dysthymic disorder F34.1 and Generalized anxiety disorder F41.1 [place] [address] [place] [id number] [address] [place] [address] Sep, [place] [address] [place] [id number] [address] [place] [address] Sep, [place] [address] [place] [id number] [address] [place] [address] Sep, [facility] [address] [place] [id number] [address] [place] [address] Sep, [place] [address] [place] [id number] [address] [place] [address] Sep, [place] [address] [place] [id number] [address] [place] [address] Sep, Dysthymic disorder F34.1 and Generalized anxiety disorder F41.1 [place] [address] [facility] [id number] [address] [place] [address] 16 Sep, 2015 Asthma with acute exacerbati on in adult J45.901 ; Dysuria R30.0 ; Chronic kidney disease, stage 4 (severe) N18.4 and History of anemia Z86.2 [facility] [address] [place] [id number] [address] [place] [address] 2015 Generalized anxiety disorder F41.1 and Dysthymic disorder F34.1 [place] [address] [place] [id number] [address] [place] [address] August, Screening breast examination Z12.39 and Acute recurrent maxillary sinusitis J01.01 [place] [address] [place] [id number] [address] [place] [address] August, Osteoarthritis of knees, jose ateral M17.0 [place] [address] [address] August, Chronic kidney disease, 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 ; Acute non- recurrent maxillary sinusitis J01.00 ; Urinary problem R39.89 ; Bowel habit changes R19.4 ; Functional diarrhea K59.1 and History of colon polyps Z86.010 [place] [address] [place] [id number] [address] [place] [address] Jul, Dysthymic disorder F34.1 and Generalized anxiety disorder F41.1 [place] [address] [address] Jul, [place] [address] [address] Jul, Dysthymic disorder F34.1 ; G eneralized anxiety disorder F41.1 and snf use of drug Z79.899 [place] [address] [place] [id number] [address] [place] [address] Jul, [place] [id number] [place] [address] Jun, [place] [address] [place] [id number] [address] [place] [address] Jun, [place] [address] [address] May, [place] [address] [place] [id number] [address] [place] [address] May, Dysthymic disorder F34.1 and Generalized anxiety disorder F41.1 [place] [address] [address] Apr, Kidney disease N28.9 [place] [address] [address] Apr, Generalized anxiety disorder F41.1 and Dysthymic disorder F34.1 [place] [address] [address] Apr, Chronic kidney disease, 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 [place] [address] [address] Apr, Generalized anxiety disorder F41.1 ; Major depression, recurrent F33.9 and Sleep disturbance G47.[address] [address] Mar, Generalized anxiety disorder F41.1 and Dysthymic disorder F34.1 [place] [address] [address] Mar, Generalized anxiety disorder F41.1 ; Dysthymic disorder F34.1 and Insomnia G47.[address] [address] Mar, [place] [address] [address] Mar, [address] [address] Mar, Osteoarthritis of knees, jose ateral M17.0 [place] [id number] [place] [address] Mar, Hypertension I10 ; Hypothyro id E03.9 ; Dysthymic disorder F34.1 ; Chronic kidney disease, stage 4 (severe) N18.4 and Nausea & vomiting R11.[address] [address] Mar, Generalized anxiety disorder F41.1 ; Dysthymic disorder F34.1 and Insomnia G47.00 [place] [address] [address] Mar, Dehydration E86.0 ; Chronic kidney disease, stage 4 (severe) N18.4 and Nausea & vomiting R11.2 [facility] [address] [address] Mar, Gastroenteritis K52.9 [facility] [address] [address] Mar, [place] [address] [address] Mar, [place] [address] [address] Feb, Dysthymic disorder F34.1 and Generalized anxiety disorder F41.1 [place] [address] [address] Jan, UTI (urinary tract infection ) N39.0 ; Asthma J45.909 ; Coronary artery disease involving deering coronary artery of deering heart, angina presence unspecified I25.10 ; Hypertension I10 ; Hypothyroid E03.9 ; Vitamin D deficiency E55.9 ; Insomnia G47.00 ; Palpitations R00.2 ; Depressed F32.9 ; Restless leg G25.81 and Anxiety F41.9 [place] [address] [address] Jan, Dysthymic disorder F34.1 and Generalized anxiety disorder F41.1 [place] [address] [address] Jan, [place] [address] [address] Dec, [place] [address] [address] Dec, Alkalosis 276.3 ; Chronic ki dney disease, Stage IV (severe) 585.4 ; Hyperpotassemia 276.7 ; Secondary hyperparathyroidism, renal 588.81 ; Proteinuria 791.0 ; Unspecified vitamin D deficiency 268.9 ; Anemia in chronic kidney disease 285.21 ; Other and unspecified hyperlipidemia 272.4 ; Hypertension, essential, benign 401.1 and Chronic kidney disease (CKD), stage III (moderate) 585.[address] [address] Dec, [address] [address] Dec, Depressive disorder, not els ewhere classified 311 and Generalized anxiety disorder 300.[address] [address] Dec, [address] [address] Dec, [address] [address] Nov, Depressive disorder, not els ewhere classified 311 and Generalized anxiety disorder 300.[address] [address] Nov, Arthritis of both knees 716. [address] [address] Nov, PAF (paroxysmal atrial fibri llation) 427.31 ; CAD (coronary artery disease) 414.00 ; Chest pain 786.50 and Chronic kidney disease (CKD) stage G4/A1, severely decreased glomerular filtration rate (GFR) between 15-29 mL/min/1.73 square meter and albuminuria creatinine ratio less than 30 mg/g 585.[address] [address] Oct, Coronary atherosclerosis of unspecified type of vessel, deering or graft 414.00 ; Chronic kidney disease, Stage IV (severe) 585.4 ; Hypertension 401.9 and Edema 782.3 [place] [address] [address] Oct, Depressive disorder, not els ewhere classified 311 and Generalized anxiety disorder 300.02 [place] [address] [address] Oct, Depressive disorder, not els ewhere classified 311 and Generalized anxiety disorder 300.02 [place] [address] [address] Oct, [place] [address] [address] Oct, [place] [address] [address] Sep, [place] [address] [address] Sep, Chronic kidney disease, Stag e IV (severe) 585.4 [place] [address] [address] Sep, [address] [address] Sep, Coronary atherosclerosis of unspecified type of vessel, deering or graft 414.00 ; Hypertension 401.9 ; Edema 782.3 and Hypothyroidism 244.[address] [address] Sep, Coronary atherosclerosis of unspecified type of vessel, deering or graft 414.00 ; Hypertension 401.9 ; Fibromyalgia 729.1 ; Edema 782.3 ; Hypothyroidism 244.9 and Anemia 285.9 [place] [address] [address] Sep, Anxiety disorder, unspecifie d 300.00 and Depressive disorder, not elsewhere classified 311 [place] [address] [address] Sep, [place] [address] [id number] [address] [place] [address] August, Generalized anxiety disorder 300.02 [facility] [address] [id number] [address] [place] [address] August, Closed fracture of lateral m alleolus 824.2 [facility] [address] [id number] [address] [place] [address] 14 Jul, 2014 [facility] [address] [id number] [address] [place] [address] Jul, [facility] [address] [id number] [address] [place] [address] Jun, [facility] [address] [id number] [address] [place] [address] Jun, [facility] [address] [id number] [address] [place] [address] Jun, [facility] [address] [id number] [address] [place] [address] Jun, [facility] [address] [id number] [address] [place] [address] Jun, [facility] [address] [id number] [address] [place] [address] Jun, [facility] [address] [id number] [address] [place] [address] May, [facility] [address] [id number] [address] [place] [address] May, [facility] [address] [id number] [address] [place] [phone] May, [facility] [address] [id number] [address] [place] [address] May, [facility] [address] [id number] [address] [place] [address] 16 May, 2014 [facility] [address] [id number] [address] [place] [address], [place] [address] 16 May, 2014 [facility] [address] [id number] [address] [place] [address], [place] [address] 13 May, 2014 [facility] [address] [id number] [address] [place] [address], [place] [address] 13 May, 2014 [facility] [address] [id number] [address] [place] [address], [place] [address] 10 May, 2014 [facility] [address] [id number] [address] [place] [address], [place] [address] May, 2014 [facility] [address] [id number] [address] [place] [address], [place] [address] Apr, [facility] [address] [id number] [address] [place] [address], [place] [address] Apr, [facility] [address] [id number] [address] [place] [address], [place] [address] Mar, [facility] [address] [id number] [address] [place] [address], [place] [address] Mar, [facility] [address] [id number] [address] [place] [address], [place] [address] Mar, [facility] [address] [id number] [address] [place] [address], [place] [address] 15 Mar, 2014 [facility] [address] [id number] [address] [place] [address], [place] [address] 15 Mar, 2014 [facility] [address] [id number] [address] [place] [address], [place] [address] Mar, [facility] [address] [id number] [address] [place] [address], [place] [address] Mar, [facility] [address] [id number] [address] [place] [address], [place] [address] 24 Feb, 2014 [facility] [address] [id number] [address] [place] [address], [place] [address] Feb, [facility] [address] [id number] [address] [place] [address], [place] [address] Feb, [facility] [address] [id number] [address] [place] [address], [place] [address] Jan, [facility] [address] [id number] [address] [place] [address], [place] [address] Jan, [facility] [address] [id number] [address] [place] [address], [place] [address] Jan, [facility] [address] [id number] [address] [place] [address], [place] [address] Jan, [facility] [address] [id number] [address] [place] [address], [place] [address] Jan, [facility] [address] [id number] [address] [place] [address], [place] [address] Jan, [facility] [address] [id number] [address] [place] [address], [place] [address] Jan, [facility] [address] [id number] [address] [place] [address], [place] [address] Jan, [facility] [address] [id number] [address] [place] [address], [place] [address] Jan, [facility] [address] [id number] [address] [place] [address], [place] [address] Jan, [facility] [address] [id number] [address] [place] [address], [place] [address] Nov, [facility] [address] [id number] [address] [place] [address], [place] [address] Nov, [facility] [address] [id number] [address] [place] [address], [place] [address] Nov, [facility] [address] [id number] [address] [place] [address], [place] [address] Oct, [facility] [address] [id number] [facility] [place] [address] 29 Oct, 2013 [facility] [address] [id number] [facility] [place] [address] Oct, [facility] [address] [id number] [facility] [place] [address] Oct, 2013 [facility] [address] [id number] [facility] [place] [address] Oct, 2013 [facility] [address] [id number] [facility] [place] [address] Oct, 2013 [facility] [address] [id number] [address] [place] [address], [place] [address] Oct, [facility] [address] [id number] [address] [place] [address], [place] [address] Oct, [facility] [address] [id number] [address] [place] [address], [place] [address] Oct, [facility] [address] [id number] [address] [place] [address], [place] [address] 30 Sep, 2013 [facility] [address] [id number] [address] [place] [address], [place] [address] Sep, [facility] [address] [id number] [address] [place] [address], [place] [address] 24 Sep, 2013 [facility] [address] [id number] [address] [place] [address], [place] [address] Sep, [facility] [address] [id number] [address] [place] [address], [place] [address] Sep, [facility] [address] [id number] [address] [place] [address], [place] [address] Sep, [facility] [address] [id number] [address] [place] [address], [place] [address] Sep, [facility] [address] [id number] [address] [place] [address], [place] [address] Sep, [facility] [address] [id number] [facility] [place] [address] Sep, [facility] [address] [id number] [address] [place] [address], [place] [address] August, [facility] [address] [id number] [address] [place] [address], [place] [address] August, [facility] [address] [id number] [address] [place] [address], [place] [address] August, [facility] [address] [id number] [address] [place] [address], [place] [address] August, [facility] [address] [id number] [address] [place] [address], [place] [address] August, [facility] [address] [id number] [address] [place] [address], [place] [address] August, [facility] [address] [id number] [address] [place] [address], [place] [address] Jul, [facility] [address] [id number] [address] [place] [address], [place] [address] Jul, [facility] [address] [id number] [address] [place] [address], [place] [address] Jul, [facility] [address] [id number] [address] [place] [address], [place] [address] Jul, [facility] [address] [id number] [address] [place] [address], [place] [address] Jul, [facility] [address] [id number] [address] [place] [address], [place] [address] Jul, [facility] [address] [id number] [address] [place] [address], [place] [address] Jun, [facility] [address] [id number] [address] [place] [address], [place] [address] Jun, [facility] [address] [id number] [address] [place] [address], [place] [address] 19 May, 2013 [facility] [address] [id number] [address] [place] [address], [place] [address] May, [facility] [address] [id number] [address] [place] [address], [place] [address] 10 May, 2013 [facility] [address] [id number] [address] [place] [address], [place] [address] May, [facility] [address] [id number] [address] [place] [address], [place] [address] Apr, [facility] [address] [id number] [address] [place] [address], [place] [address] Apr, [facility] [address] [id number] [address] [place] [address], [place] [address] 18 Mar, 2013 [facility] [address] [id number] [address] [place] [address], [place] [address] 18 Mar, 2013 [facility] [address] [id number] [address] [place] [address], [place] [address] 17 Mar, 2013 [facility] [address] [id number] [address] [place] [address], [place] [address] 17 Mar, 2013 [facility] [address] [id number] [address] [place] [address], [place] [address] 05 Mar, 2013 [facility] [address] [id number] [address] [place] [address], [place] [address] 05 Mar, 2013 [facility] [address] [id number] [address] [place] [address], [place] [address] 20 Feb, 2013 [facility] [address] [id number] [address] [place] [address], [place] [address] 20 Feb, 2013 [facility] [address] [id number] [address] [place] [address], [place] [address] 14 Feb, 2013 [facility] [address] [id number] [address] [place] [address], [place] [address] Feb, [facility] [address] [id number] [address] [place] [address], [place] [address] Feb, [facility] [address] [id number] [address] [place] [address], [place] [address] Feb, [facility] [address] [id number] [address] [place] [address], [place] [address] Jan, [facility] [address] [id number] [address] [place] [address], [place] [address] Jan, [facility] [address] [id number] [address] [place] [address], [place] [address] Jan, [facility] [address] [id number] [address] [place] [address], [place] [address] Jan, [facility] [address] [id number] [address] [place] [address], [place] [address] Jan, [facility] [address] [id number] [address] [place] [address], [place] [address] Jan, [facility] [address] [id number] [address] [place] [address], [place] [address] Dec, [facility] [address] [id number] [address] [place] [address] Dec, [facility] [address] [id number] [address] [place] [address] Nov, [facility] [address] [id number] [address] [place] [address] Nov, [facility] [address] [id number] [address] [place] [address], [place] [address] Oct, [facility] [address] [id number] [address] [place] [address], [place] [address] Oct, [facility] [address] [id number] [address] [place] [address] Oct, [facility] [address] [id number] [address] [place] [address] Oct, [facility] [address] [id number] [address] [place] [address], [place] [address] Oct, [facility] [address] [id number] [address] [place] [address], [place] [address] Oct, [facility] [address] [id number] [address] [place] [address], [place] [address] Sep, [facility] [address] [id number] [address] [place] [address], [place] [address] Sep, [facility] [address] [id number] [address] [place] [address], [place] [address] Sep, [facility] [address] [id number] [address] [place] [address], [place] [address] Sep, [facility] [address] [id number] [address] [place] [address], [place] [address] August, [facility] [address] [id number] [address] [place] [address], [place] [address] August, [facility] [address] [id number] [address] [place] [address], [place] [address] August, [facility] [address] [id number] [address] [place] [address], [place] [address] August, [facility] [address] [id number] [address] [place] [address], [place] [address] August, [facility] [address] [id number] [address] [place] [address], [place] [address] Jul, [facility] [address] [id number] [address] [place] [address], [place] [address] 18 Jul, 2012 [facility] [address] [id number] [address] [place] [address], [place] [address] 15 Jul, 2012 [facility] [address] [id number] [address] [place] [address], [place] [address] Jul, [facility] [address] [id number] [address] [place] [address], [place] [address] Jul, [facility] [address] [id number] [address] [place] [address], [place] [address] Jul, [facility] [address] [id number] [address] [place] [address], [place] [address] Jul, [facility] [address] [id number] [address] [place] [address], [place] [address] Jul, [facility] [address] [id number] [address] [place] [address], [place] [address] Jul, [facility] [address] [id number] [address] [place] [address], [place] [address] Jul, [facility] [address] [id number] [place] [id number] Jun, [facility] [address] [id number] [address] [place] [address], [place] [address] Jun, [facility] [address] [id number] [address] [place] [address], [place] [address] Jun, [facility] [address] [id number] [address] [place] [address], [place] [address] Jun, [facility] [address] [id number] [address] [place] [address], [place] [address] Jun, [facility] [address] [id number] [address] [place] [address], [place] [address] May, [facility] [address] [id number] [address] [place] [address], [place] [address] May, [facility] [address] [id number] [address] [place] [address], [place] [address] May, [facility] [address] [id number] [address] [place] [address], [place] [address] Apr, [facility] [address] [id number] [address] [place] [address], [place] [address] Apr, [facility] [address] [id number] [address] [place] [address], [place] [address] Apr, [facility] [address] [id number] [address] [place] [address], [place] [address] Apr, [facility] [address] [id number] [address] [place] [address], [place] [address] Apr, [facility] [address] [id number] [address] [place] [address], [place] [address] Apr, [facility] [address] [id number] [address] [place] [address], [place] [address] Mar, [facility] [address] [id number] [address] [place] [address], [place] [address] Mar, [facility] [address] [id number] [address] [place] [address], [place] [address] Mar, [facility] [address] [id number] [address] [place] [address], [place] [address] Mar, [facility] [address] [id number] [address] [place] [address], [place] [address] Feb, [facility] [address] [id number] [address] [place] [address], [place] [address] Feb, [facility] [address] [id number] [address] [place] [address], [place] [address] Feb, [facility] [address] [id number] [address] [place] [address], [place] [address] Feb, [facility] [address] [id number] [address] [place] [address], [place] [address] Feb, [facility] [address] [id number] [address] [place] [address], [place] [address] Feb, [facility] [address] [id number] [address] [place] [address], [place] [address] Feb, [facility] [address] [id number] [address] [place] [address], [place] [address] Feb, [facility] [address] [id number] [address] [place] [address], [place] [address] Feb, [facility] [address] [id number] [address] [place] [address], [place] [address] Feb, [facility] [address] [id number] [address] [place] [address], [place] [address] Feb, [facility] [address] [id number] [address] [place] [address], [place] [address] Feb, [facility] [address] [id number] [address] [place] [address], [place] [address] Feb, [facility] [address] [id number] [address] [place] [address], [place] [address] Feb, [facility] [address] [id number] [address] [place] [address], [place] [address] Feb, [facility] [address] [id number] [address] [place] [address], [place] [address] Feb, [facility] [address] [id number] [address] [place] [address], [place] [address] Jan, [facility] [address] [id number] [address] [place] [address], [place] [address] Jan, [facility] [address] [id number] [address] [place] [address], [place] [address] Jan, [facility] [address] [id number] [address] [place] [address] Jan, [facility] [address] [id number] [address] [place] [address], [place] [address] 30 Jan, 2012 [facility] [address] [id number] [address] [place] [address], [place] [address] Jan, [facility] [address] [id number] [address] [place] [address] Jan, [facility] [address] [id number] [address] [place] [address], [place] [address] 16 Jan, 2012 [facility] [address] [id number] [address] [place] [address], [place] [address] 16 Jan, 2012 [facility] [address] [id number] [address] [place] [address], [place] [address] 15 Jan, 2012 [facility] [address] [id number] [address] [place] [address], [place] [address] 15 Jan, 2012 [facility] [address] [id number] [address] [place] [address], [place] [address] 01 Jan, 2012 [facility] [address] [id number] [address] [place] [address], [place] [address] 26 Sep, 2011 [facility] [address] [id number] [address] [place] [address], [place] [address] 26 Sep, 2011 [facility] [address] [id number] [address] [place] [address], [place] [address] 24 Sep, 2011 [facility] [address] [id number] [address] [place] [address], [place] [address] 23 Sep, 2011 [facility] [address] [id number] [address] [place] [address], [place] [address] 22 Sep, 2011 [facility] [address] [id number] [address] [place] [address], [place] [address] 21 Sep, 2011 [facility] [address] [id number] [address] [place] [address], [place] [address] 20 Sep, 2011 [facility] [address] [id number] [address] [place] [address], [place] [address] 20 Sep, 2011 [facility] [address] [id number] [address] [place] [address], [place] [address] 07 Sep, 2011 [facility] [address] [id number] [address] [place] [address], [place] [address] 06 Sep, 2011 [facility] [address] [id number] [address] [place] [address], [place] [address] 06 Dec, 2011 [facility] [address] [id number] [address] [place] [address], [place] [address] 05 Dec, 2011 [facility] [address] [id number] [address] [place] [address], [place] [address] Nov, [facility] [address] [id number] [address] [place] [address], [place] [address] Nov, [facility] [address] [id number] [address] [place] [address], [place] [address] Nov, [facility] [address] [id number] [address] [place] [address], [place] [address] Nov, [facility] [address] [id number] [address] [place] [address], [place] [address] Nov, [facility] [address] [id number] [address] [place] [address], [place] [address] Nov, [facility] [address] [id number] [address] [place] [address], [place] [address] Nov, [facility] [address] [id number] [address] [place] [address], [place] [address] Nov, [facility] [address] [id number] [address] [place] [address], [place] [address] Oct, [facility] [address] [id number] [address] [place] [address], [place] [address] Oct, [facility] [address] [id number] [address] [place] [address], [place] [address] Oct, [facility] [address] [id number] [address] [place] [address], [place] [address] Oct, [facility] [address] [id number] [address] [place] [address], [place] [address] Oct, [facility] [address] [id number] [address] [place] [address], [place] [address] Oct, [facility] [address] [id number] [address] [place] [address], [place] [address] Oct, [facility] [address] [id number] [address] [place] [address], [place] [address] Sep, [facility] [address] [id number] [address] [place] [address], [place] [address] Sep, [facility] [address] [id number] [address] [place] [address], [place] [address] August, [facility] [address] [id number] [address] [place] [address], [place] [address] August, [facility] [address] [id number] [address] [place] [address], [place] [address] August, [facility] [address] [id number] [address] [place] [address], [place] [address] August, [facility] [address] [id number] [address] [place] [address], [place] [address] Jul, [facility] [address] [id number] [address] [place] [address], [place] [address] Jul, [facility] [address] [id number] [address] [place] [address], [place] [address] Jul, [facility] [address] [id number] [address] [place] [address], [place] [address] Jul, [facility] [address] [id number] [address] [place] [address], [place] [address] Jul, [facility] [address] [id number] [address] [place] [address], [place] [address] Jul, [facility] [address] [id number] [address] [place] [address], [place] [address] Jul, [facility] [address] [id number] [address] [place] [address], [place] [address] Jul, [facility] [address] [id number] [address] [place] [address], [place] [address] Jul, [facility] [address] [id number] [address] [place] [address], [place] [address] 23 Jun, 2011 [facility] [address] [id number] [address] [place] [address], [place] [address] 19 Jun, 2011 [facility] [address] [id number] [address] [place] [address], [place] [address] 15 Jun, 2011 [facility] [address] [id number] [address] [place] [address], [place] [address] 14 Jun, 2011 [facility] [address] [id number] [address] [place] [address], [place] [address] 12 Jun, 2011 [facility] [address] [id number] [address] [place] [address], [place] [address] 09 Jun, 2011 [facility] [address] [id number] [address] [place] [address], [place] [address] Jun, [facility] [address] [id number] [address] [place] [address], [place] [address] 25 May, 2011 [facility] [address] [id number] [address] [place] [address], [place] [address] 24 May, 2011 [facility] [address] [id number] [address] [place] [address], [place] [address] 16 May, 2011 [facility] [address] [id number] [address] [place] [address], [place] [address] 16 May, 2011 [facility] [address] [id number] [address] [place] [address], [place] [address] May, [facility] [address] [id number] [address] [place] [address], [place] [address] Apr, [facility] [address] [id number] [address] [place] [address], [place] [address] Apr, [facility] [address] [id number] [address] [place] [address], [place] [address] Apr, [facility] [address] [id number] [address] [place] [address], [place] [address] Apr, [facility] [address] [id number] [address] [place] [address], [place] [address] Apr, [facility] [address] [id number] [address] [place] [address], [place] [address] Mar, [facility] [address] [id number] [address] [place] [address], [place] [address] Mar, [facility] [address] [id number] [address] [place] [address], [place] [address] Mar, [facility] [address] [id number] [address] [place] [address], [place] [address] Mar, [facility] [address] [id number] [address] [place] [address], [place] [address] Mar, [facility] [address] [id number] [address] [place] [address], [place] [address] Mar, [facility] [address] [id number] [address] [place] [address], [place] [address] Mar, [facility] [address] [id number] [address] [place] [address], [place] [address] Feb, [facility] [address] [address] [id number] [address] [place] [address], [place] [id number] Feb, [facility] [address] [id number] [address] [place] [address], [place] [id number] Feb, [facility] [address] [id number] [address] [place] [address], [place] [id number] Feb, [facility] [address] [id number] [address] [place] [address], [place] [id number] Jan, [facility] [address] [id number] [address] [place] [address], [place] [id number] Jan, [facility] [address] [id number] [address] [place] [id number] Jan, [facility] [address] [id number] [address] [place] [id number] Jan, [facility] [address] [id number] [address] [place] [id number] Nov, [facility] [address] [id number] [address] [place] [id number] Mar, [facility] [address] [id number] [address] [place] [id number] Mar, [facility] [address] [id number] [address] [place] [id number] Mar, [facility] [address] [id number] [address] [place] [id number] Mar, [facility] [address] [id number] [address] [place] [id number] Mar, [facility] [address] [id number] [address] [place] [id number] Mar, [facility] [address] [id number] [address] [place] [id number] Feb, [facility] [address] [id number] [address] [place] [id number] Feb, [facility] [address] [id number] [address] [place] [id number] Jan, [facility] [address] [id number] [address] [place] [id number] Jan, [facility] [address] [id number] [address] [place] [id number] Jan, IMMUNIZATIONS No Known Immunizations SOCIAL HISTORY Never Assessed REASON FOR VISIT PLAN OF CARE VITAL SIGNS Blood pressure systolic 132 mmHg 2013-12-04 Blood pressure diastolic 80 mmHg 2013-12-04 MEDICATIONS Unknown Medications RESULTS No Results PROCEDURES Procedure Date Ordered Result Body Site DRAIN/INJECT, JOINT/BURSA Dec 04, 2013 INSTRUCTIONS MEDICATIONS ADMINISTERED No Known Medications [...] History CPAP Noncompliance_ Dr. Madden advises a [employer] driving. Medical History Bacterial meningitis 12/2016 Medical [...] 09-2015 & 2007 Surgical History Bladder surgery [facility] 03/2016 Surgical History Neurotransmitter placed 10/2017 Surgical History retninal repair 12/31/2017 Surgical History cataract surgery 2018 Surgical History cataract surgery 2019 Surgical History SCS trial x7 days 2019 Surgical History SCS implant removed. 2019 Hospitalization History Surgeries Only Hospitalization History bacterial meningitis December 2016 Hospitalization History [facility] psych for SI 1988 Hospitalization History [facility]-Altered mental status 05/2017 Hospitalization History sepsis, UTI, headache 08/03/2018-
--- OUTSIDE RECORDS SUMMARY | 2019-08-01 10:10 | XMS REPORT ---
Author Author Lola Tyson Doctor Organization [facility] Address Unknown Phone Unavailable Care Team Providers Care Cad Specialist Name Role Phone Migration, Doctor Unavailable Unavailable PROBLEMS Type Condition ICD9-CM Code MVW10-FT Code Onset Dates Condition S tatus SNOMED Code Problem Hypothyroid E03.9 Active 85807848 Problem Asthma J45.909 Active 858196120 Problem Insomnia G47.00 Active 756738312 Problem Depressed F32.9 Active 97349401 Problem Palpitations R00.2 Active 4433057 2 Problem Functional diarrhea K59.1 Active 92296255 Problem Chronic kidney disease, stage 4 (severe) N18.4 Active 219207518 Problem Degenerative tear of medial meniscus of left knee M23.204 Active 139583408 Problem Dysthymic disorder F34.1 Active 7 3143691 Problem Primary osteoarthritis of left knee M17.12 Active 821542072 Problem Generalized anxiety disorder F41.1 A ctive 25843410 Problem Restless leg G25.81 Active 5601433 8 Problem 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, angina presence unspecified I25.10 Active 5340631043687 Problem Hypokalemia E87.6 Active 64524592 Problem Other seasonal allergic rhinitis J30.2 Active 819386499 Problem Mixed stress and urge urinary incontinence N39.46 Active 074960921 Problem Fibromyalgia M79.7 Active 5278262 05 Problem Essential (primary) hypertension I10 Active 25497116 Problem Long-term use of high-risk medication Z79.899 Active 810216012 Problem Vitamin D deficiency E55.9 Active 32508350 Problem Anemia in chronic kidney disease D63.1 Active 775903463993154 Problem Low back pain M54.5 Active 342454 009 Problem Chronic kidney disease, unspecified N18.9 Active 511903657 Problem Abnormal chest CT R93.8 Active 44 0176652 Problem Mood disorder F39 Active 004540 05 Problem Stage 3 chronic kidney disease N18.3 Active 260773724 Problem Body mass index (BMI) of 40.0-44.9 in adult Z68.41 Active 796981082 Problem Other chronic pain G89.29 Active 8 6043512 Problem Asthma with acute exacerbation in adult J45.901 Active 710461691 Problem Major depressive disorder, recurrent, moderate F33 .1 Active 208162154 Problem History of colon polyps Z86.010 Active 687948864 Problem History of anemia Z86.2 Active 27 4886589 Problem Seasonal allergic rhinitis due to pollen J30.1 Active 39602773 Problem Restless leg syndrome G25.81 Active 56398212 Problem Chronic pain syndrome G89.4 Active 753812653 Problem Perimenopausal vasomotor symptoms N95.1 Active 822860393 ALLERGIES No Information ENCOUNTERS Encounter Location Date Diagnosis [facility] [address] [facility] [id number] [address] [place] [id number] Dec, [facility] [address] [facility] [id number] [address] [place] [phone] Nov, [facility] [address] [facility] [id number] [address] [place] [phone] Nov, [facility] [address] [facility] [id number] [address] [place] [phone] Nov, Chronic pain syndrome G89.4 [facility] [address] [facility] [id number] [address] [place] [phone] Nov, Restless leg syndrome G25.81 [facility] [address] [facility] [id number] [address] [place] [phone] Nov, Pain in right shoulder M25.5 11 ; Restless leg syndrome G25.81 ; Other chronic pain G89.29 ; Screening for breast cancer Z12.39 ; Insomnia G47.00 and Morbid obesity E66.01 [facility] [address] [facility] [id number] [address] [place] [phone] Nov, [facility] [address] [facility] [id number] [address] [place] [phone] Oct, Major depressive disorder, r ecurrent, moderate F33.1 ; Generalized anxiety disorder F41.1 and Dysthymic disorder F34.1 [facility] [address] [id number] [address] [place] [phone] Oct, [facility] [address] [id number] [address] [place] [phone] Oct, Cellulitis of left lower ext remity L03.116 and Morbid obesity E66.01 [facility] [address] [id number] [address] [place] [id number] Oct, [facility] [address] [id number] [address] [place] [phone] Oct, [facility] [address] [id number] [address] [place] [phone] Oct, Generalized anxiety disorder F41.1 and Major depressive disorder, recurrent episode with anxious distress F33.9 [facility] [address] [id number] [address] [place] [phone] Oct, [facility] [address] [id number] [address] [place] [phone] Oct, Chronic pain syndrome G89.4 [facility] [address] [id number] [address] [place] [id number] Oct, Chronic pain syndrome G89.4 [facility] [address] [id number] [address] [place] [phone] Oct, UTI symptoms R39.9 ; Acute c ystitis without hematuria N30.00 and Morbid obesity E66.01 [facility] [address] [id number] [address] [place] [phone] Oct, [facility] [address] [id number] [address] [place] [phone] Oct, Chronic pain syndrome G89.4 [facility] [address] [id number] [address] [place] [phone] Sep, [facility] [address] [id number] [address] [place] [phone] Sep, Generalized anxiety disorder F41.1 and Major depressive disorder, recurrent episode with anxious distress F33.9 [facility] [address] [facility] [id number] [address] [place] [phone] 17 Sep, 2018 Chronic kidney disease, 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 [facility] [address] [id number] [address] [place] [phone] Sep, Fibromyalgia M79.7 and Chron ic pain syndrome G89.4 [facility] [address] [id number] [address] [place] [phone] Sep, [address] [phone] Sep, Chronic pain syndrome G89.4 [facility] [address] [id number] [address] [place] [id number] Sep, [place] [address] [facility] [id number] [address] [place] [phone] Sep, Chronic pain syndrome G89.4 ; Fibromyalgia M79.7 and Morbid obesity E66.01 [place] [address] [facility] [id number] [address] [place] [phone] August, Generalized anxiety disorder F41.1 and Major depressive disorder, recurrent episode with anxious distress F33.9 [facility] [address] [facility] [id number] [address] [place] [phone] August, Fibromyalgia M79.7 [facility] [address] [facility] [id number] [address] [place] [phone] August, Restless leg syndrome G25.81 ; Vitamin D deficiency E55.9 ; Urinary tract infection without hematuria, site unspecified N39.0 ; Pain in right shoulder M25.511 ; Other chronic pain G89.29 ; Biceps tendinitis on right M75.21 and Morbid obesity E66.01 [facility] [address] [id number] [address] [place] [phone] Jul, Urinary tract infection with out hematuria, site unspecified N39.0 and Morbid obesity E66.01 [facility] [address] [place] [id number] [address] [place] [id number] Jul, [facility] [address] [place] [id number] [address] [place] [phone] Jul, [facility] [address] [place] [id number] [place] [phone] Jul, Fibromyalgia M79.7 [facility] [address] [place] [id number] [place] [phone] Jul, Acute pain of right shoulder M25.511 [place] [address] [place] [id number] [place] [phone] Jul, Acute pain of right shoulder M25.511 and Morbid obesity E66.01 [place] [address] [phone] Jun, [place] [address] [phone] Jun, Generalized anxiety disorder F41.1 and Major depressive disorder, recurrent episode with anxious distress F33.9 [place] [address] [place] [id number] [address] [place] [phone] Jun, [facility] [address] [place] [id number] [address] [place] [phone] Jun, Fibromyalgia M79.7 [facility] [address] [place] [id number] [address] [place] [id number] Jun, Acute pain of right shoulder M25.511 ; Acute pain of right hip M25.551 and Morbid obesity E66.01 [facility] [address] [place] [id number] [address] [place] [id number] May, Burning with urination R30.0 ; Vaginal discharge N89.8 ; Chronic kidney disease, stage 4 (severe) N18.4 ; Body mass index (BMI) of 40.0-44.9 in adult Z68.41 and Morbid obesity E66.01 [facility] [address] [id number] [address] [place] [id number] 07 May, 2018 Fibromyalgia M79.7 [facility] [address] [facility] [id number] [address] [place] [id number] 06 May, 2018 Generalized anxiety disorder F41.1 and Major depressive disorder, recurrent episode with anxious distress F33.9 [facility] [address] [facility] [id number] [address] [place] [phone] 24 Apr, 2018 [facility] [address] [facility] [id number] [address] [place] [phone] 08 Apr, 2018 Fibromyalgia M79.7 [facility] [address] [facility] [id number] [address] [place] [id number] 14 Mar, 2018 Acute UTI N39.0 and Dysuria R30.0 [facility] [address] [facility] [id number] [address] [place] [phone] Mar, Fibromyalgia M79.7 [facility] [address] [facility] [id number] [address] [place] [phone] 15 Feb, 2018 [facility] [address] [facility] [id number] [address] [place] [phone] Feb, [facility] [address] [facility] [id number] [address] [place] [phone] Feb, [facility] [address] [facility] [id number] [address] [place] [phone] Feb, Fibromyalgia M79.7 [facility] [address] [facility] [id number] [address] [place] [id number] 08 Feb, 2018 Complicated UTI (urinary tra ct infection) N39.0 [facility] [address] [facility] [id number] [address] [place] [id number] 07 Feb, 2018 [facility] [address] [facility] [id number] [address] [place] [phone] Jan, Generalized anxiety disorder F41.1 and Major depressive disorder, recurrent episode with anxious distress F33.9 [facility] [address] [id number] [address] [place] [phone] Jan, Acute conjunctivitis of left eye, unspecified acute conjunctivitis type H10.32 [facility] [address] [id number] [address] [place] [phone] Jan, [facility] [address] [facility] [id number] [address] [place] [phone] Jan, Acute non-recurrent maxillar y sinusitis J01.00 ; Dysuria R30.0 ; Perimenopausal vasomotor symptoms N95.1 and Fibromyalgia M79.7 [facility] [address] [id number] [address] [place] [phone] 28 Dec, 2017 Vitamin D deficiency E55.9 [facility] [address] [id number] [address] [place] [phone] Dec, Vitamin D deficiency E55.9 [facility] [address] [id number] [address] [place] [phone] 24 Dec, 2017 Vitamin D deficiency E55.9 [facility] [address] [id number] [address] [place] [id number] Dec, [facility] [address] [id number] [address] [place] [phone] Dec, Fibromyalgia M79.7 [facility] [address] [id number] [address] [place] [phone] Nov, [facility] [address] [id number] [address] [place] [phone] Nov, [facility] [address] [id number] [address] [place] [phone] Nov, [facility] [address] [id number] [address] [place] [id number] Nov, Fibromyalgia M79.7 ; Vision changes H53.9 ; Chest wall pain R07.89 and Chronic pain syndrome G89.4 [facility] [address] [id number] [address] [place] [phone] Nov, [facility] [address] [id number] [address] [place] [phone] Nov, Rash of hands R21 [facility] [address] [id number] [address] [place] [id number] Nov, Generalized anxiety disorder F41.1 and Major depressive disorder, recurrent episode with anxious distress F33.9 [facility] [address] [id number] [address] [place] [phone] Nov, Fibromyalgia M79.7 [facility] [address] [id number] [address] [place] [id number] Nov, Complicated UTI (urinary tra ct infection) N39.0 [place] [address] [id number] [address] [place] [phone] Oct, [facility] [address] [id number] [address] [place] [phone] Oct, Generalized anxiety disorder F41.1 and Major depressive disorder, recurrent episode with anxious distress F33.9 [facility] [address] [id number] [address] [place] [phone] Oct, [facility] [address] [id number] [address] [place] [phone] Oct, Fibromyalgia M79.7 [facility] [address] [facility] [id number] [address] [place] [id number] Sep, Restless leg syndrome G25.81 and Restless leg G25.81 [facility] [address] [id number] [address] [place] [phone] Sep, [facility] [address] [facility] [id number] [address] [place] [id number] Sep, Seasonal allergic rhinitis d ue to pollen J30.1 ; Screening for breast cancer Z12.31 ; Chest pain at rest R07.9 ; Restless leg syndrome G25.81 ; Essential (primary) hypertension I10 and Depressed F32.9 [facility] [address] [facility] [id number] [address] [place] [phone] August, Fibromyalgia M79.7 [facility] [address] [facility] [id number] [address] [place] [phone] August, [facility] [address] [facility] [id number] [address] [place] [phone] August, [facility] [address] [id number] [address] [place] [phone] August, Abnormal chest [address] R93.8 [place] [address] [facility] [id number] [address] [place] [phone] August, Generalized anxiety disorder F41.1 and Major depressive disorder, recurrent episode with anxious distress F33.9 [place] [address] [facility] [id number] [address] [place] [id number] August, Abnormal chest [address] R93.8 [place] [address] [facility] [id number] [address] [place] [id number] Jul, [place] [address] [facility] [id number] [address] [place] [phone] Jul, Chronic kidney disease, 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 [place] [address] [facility] [id number] [address] [place] [id number] Jul, [place] [address] [facility] [id number] [address] [place] [id number] Jul, Restless leg G25.81 ; Mixed stress and urge urinary incontinence N39.46 and Fibromyalgia M79.7 [facility] [address] [facility] [id number] [address] [place] [id number] Jul, Chronic kidney disease, 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 [facility] [address] [facility] [id number] [address] [place] [id number] Jun, Orthostatic hypotension I95. 1 ; Chronic kidney disease, stage 4 (severe) N18.4 ; Chest wall discomfort R07.89 and Body mass index (BMI) of 40.0- 44.9 in adult Z68.41 [facility] [address] [facility] [id number] [address] [place] [phone] Jun, [facility] [address] [facility] [id number] [address] [place] [phone] Jun, Orthostatic hypotension I95. 1 [facility] [address] [facility] [id number] [address] [place] [phone] Jun, [facility] [address] [facility] [id number] [place] [phone] Jun, Orthostatic hypotension I95. 1 ; Dysuria R30.0 and Acute cystitis without hematuria N30.00 [facility] [address] [place] [id number] [address] [place] [phone] Jun, [facility] [address] [facility] [id number] [address] [place] [phone] Jun, Chronic kidney disease, 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 [place] [address] [place] [id number] [address] [place] [phone] Jun, Fibromyalgia M79.7 [facility] [address] [place] [id number] [address] [place] [id number] Jun, [facility] [address] [place] [id number] [address] [place] [phone] Jun, [facility] [address] [facility] [id number] [address] [place] [phone] May, Abnormal chest CT R93.8 and Stage 3 chronic kidney disease N18.3 [facility] [address] [facility] [id number] [address] [place] [phone] May, Chronic kidney disease, 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 [facility] [address] [place] [id number] [address] [place] [phone] May, Chronic kidney disease, 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 [facility] [address] [id number] [address] [place] [phone] May, Abnormal chest [address] R93.8 [facility] [address] [id number] [address] [place] [phone] May, [facility] [address] [id number] [address] [place] [phone] May, [place] [address] [id number] [address] [place] [phone] May, Generalized anxiety disorder F41.1 and Major depressive disorder, recurrent episode with anxious distress F33.9 [facility] [address] [id number] [address] [place] [phone] May, Mood disorder F39 [place] [address] [id number] [address] [place] [phone] Apr, [place] [address] [id number] [address] [place] [phone] Apr, Infected skin lesion L08.9 a nd Muscle strain of right shoulder region, initial encounter S46.911A [facility] [address] [id number] [address] [place] [id number] Apr, Generalized anxiety disorder F41.1 and Major depressive disorder, recurrent episode with anxious distress F33.9 [place] [address] [id number] [address] [place] [phone] Apr, [facility] [address] [facility] [id number] [address] [place] [phone] Apr, Recent urinary tract infecti on Z87.440 and Hypothyroid E03.9 [facility] [address] [id number] [address] [place] [phone] Apr, Generalized anxiety disorder F41.1 and Major depressive disorder, recurrent episode with anxious distress F33.9 [facility] [address] [id number] [address] [place] [phone] Apr, Recent urinary tract infecti on Z87.440 [facility] [address] [id number] [address] [place] [id number] 28 Mar, 2017 [facility] [address] [id number] [address] [place] [phone] 26 Mar, 2017 Dysuria R30.0 ; Acute cystit is without hematuria N30.00 and BMI 40.0-44.9, adult Z68.41 [place] [address] [id number] [address] [place] [phone] 14 Mar, 2017 [facility] [address] [id number] [address] [place] [phone] Mar, [facility] [address] [facility] [id number] [address] [place] [phone] Mar, Generalized anxiety disorder F41.1 and Major depressive disorder, recurrent episode with anxious distress F33.9 [facility] [address] [id number] [address] [place] [phone] 29 Feb, 2017 Conjunctivitis, bacterial H1 0.9 [place] [id number] [id number] [address] [place] [phone] 27 Feb, 2017 [facility] [address] [id number] [address] [place] [phone] 15 Feb, 2017 Conjunctivitis, bacterial H1 0.9 [facility] [address] [id number] [address] [place] [id number] 15 Feb, 2017 [facility] [address] [id number] [address] [place] [phone] 10 Feb, 2017 Dysuria R30.0 ; Acute cystit is N30.00 and BMI 40.0-44.9, adult Z68.41 [facility] [address] [id number] [address] [place] [id number] Feb, [facility] [address] [facility] [id number] [address] [place] [phone] Feb, Generalized anxiety disorder F41.1 and Major depressive disorder, recurrent episode with anxious distress F33.9 [facility] [address] [facility] [id number] [address] [place] [phone] Feb, Mood disorder F39 and BMI 40 .0-44.9, adult Z68.41 [place] [address] [place] [id number] [address] [place] [phone] Jan, [place] [address] [place] [id number] [address] [place] [phone] Jan, [place] [address] [place] [id number] [place] [phone] Jan, Hypothyroid E03.9 [place] [address] [place] [id number] [address] [place] [phone] Jan, [place] [address] [place] [id number] [address] [place] [phone] Jan, Chronic kidney disease, unsp ecified N18.9 ; Hypokalemia E87.6 ; Essential (primary) hypertension I10 ; Fibromyalgia M79.7 ; Coronary artery disease involving iroquois coronary artery of iroquois heart, angina presence unspecified I25.10 ; Hypothyroid E03.9 and Encounter for immunization Z23 [place] [address] [place] [id number] [address] [place] [phone] Jan, Hypothyroid E03.9 [place] [place] [address] [facility] [id number] [address] [place] [phone] Jan, [place] [address] [place] [id number] [address] [place] [phone] Dec, Vitamin D deficiency E55.9 [facility] [address] [facility] [id number] [address] [place] [id number] Dec, Primary osteoarthritis of le ft knee M17.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 [facility] [address] [id number] [address] [place] [phone] 19 Dec, 2016 Fibromyalgia M79.7 [facility] [address] [id number] [address] [place] [id number] 18 Dec, 2016 Mood disorder F39 [facility] [address] [id number] [address] [place] [id number] 13 Dec, 2016 [facility] [address] [id number] [address] [place] [phone] 13 Dec, 2016 Generalized anxiety disorder F41.1 and Major depressive disorder, recurrent episode with anxious distress F33.9 [facility] [address] [id number] [address] [place] [phone] 11 Dec, 2016 [facility] [address] [id number] [address] [place] [id number] 08 Dec, 2016 Streptococcal meningitis G00 .2 [facility] [address] [id number] [address] [place] [id number] 07 Dec, 2016 Streptococcal meningitis G00 .2 [facility] [address] [id number] [address] [place] [id number] 07 Dec, 2016 [facility] [address] [id number] [address] [place] [id number] 06 Dec, 2016 Streptococcal meningitis G00 .2 [facility] [address] [id number] [address] [place] [id number] 06 Dec, 2016 [facility] [address] [id number] [address] [place] [id number] 06 Dec, 2016 Major depressive disorder, r ecurrent episode with anxious distress F33.9 [facility] [address] [id number] [address] [place] [id number] Nov, Fever, unspecified fever cau se R50.9 [facility] [address] [id number] [address] [place] [phone] Nov, [facility] [address] [id number] [address] [place] [phone] Nov, Hypothyroid E03.9 [facility] [address] [facility] [id number] [address] [place] [phone] Nov, Generalized anxiety disorder F41.1 and Major depressive disorder, recurrent episode with anxious distress F33.9 [facility] [address] [id number] [address] [place] [phone] Nov, [facility] [address] [id number] [address] [place] [id number] Oct, Dental examination Z01.20 [facility] [address] [facility] [id number] [address] [place] [phone] Oct, Generalized anxiety disorder F41.1 and Major depressive disorder, recurrent episode with anxious distress F33.9 [facility] [address] [facility] [id number] [address] [place] [phone] Oct, Chronic kidney disease, 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 [facility] [address] [facility] [id number] [address] [place] [id number] Oct, [facility] [address] [facility] [id number] [address] [place] [id number] Oct, Fibromyalgia M79.7 [facility] [address] [facility] [id number] [address] [place] [id number] Oct, [facility] [address] [facility] [id number] [address] [place] [phone] Oct, Generalized anxiety disorder F41.1 ; Major depressive disorder, recurrent episode with anxious distress F33.9 and Bipolar disorder, current episode manic without psychotic features F31.10 [facility] [address] [facility] [id number] [address] [place] [id number] Sep, [facility] [address] [facility] [id number] [address] [place] [id number] Sep, [facility] [address] [facility] [id number] [address] [place] [phone] 15 Sep, 2016 Vitamin D deficiency E55.9 [place] [address] [facility] [id number] [address] [place] [id number] 14 Sep, 2016 Vitamin D deficiency E55.9 [place] [address] [facility] [id number] [address] [place] [phone] Sep, [place] [address] [place] [id number] [address] [place] [id number] Sep, Chronic kidney disease, 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 ; Hypothyroid E03.9 ; Restless leg G25.81 ; Fibromyalgia M79.7 ; Essential (primary) hypertension I10 ; Vitamin D deficiency E55.9 ; Dyspepsia R10.13 ; Anemia in chronic kidney disease D63.1 ; Chronic kidney disease, unspecified N18.9 ; Coronary artery disease involving iroquois coronary artery of iroquois heart, angina presence unspecified I25.10 ; Screening breast examination Z12.39 and Low back pain M54.5 [place] [address] [facility] [id number] [address] [place] [phone] August, Generalized anxiety disorder F41.1 and Major depressive disorder, recurrent episode with anxious distress F33.9 [place] [address] [facility] [id number] [address] [place] [phone] August, Generalized anxiety disorder F41.1 and Major depressive disorder, recurrent episode with anxious distress F33.9 [place] [address] [facility] [id number] [address] [place] [phone] August, Fibromyalgia M79.7 [place] [address] [facility] [id number] [address] [place] [phone] Jul, Generalized anxiety disorder F41.1 and Major depressive disorder, recurrent episode with anxious distress F33.9 [place] [address] [facility] [id number] [address] [place] [id number] Jul, Fibromyalgia M79.7 [place] [address] [place] [id number] [address] [place] [phone] Jul, Generalized anxiety disorder F41.1 [place] [address] [address] May, [place] [address] [address] May, Hypothyroid E03.9 [place] [address] [address] May, Chronic kidney disease, 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 ; Hypothyroid E03.9 ; Restless leg G25.81 ; Fibromyalgia M79.7 ; Essential (primary) hypertension I10 ; Vitamin D deficiency E55.9 ; Dyspepsia R10.13 ; Acute non-recurrent maxillary sinusitis J01.00 ; Anemia in chronic kidney disease D63.1 ; Chronic kidney disease, unspecified N18.9 and Coronary artery disease involving iroquois coronary artery of iroquois heart, angina presence unspecified I25.10 [place] [address] [address] May, Vitamin D deficiency, unspec ified E55.9 [place] [address] [address] May, Generalized anxiety disorder F41.1 and Major depressive disorder, recurrent episode with anxious distress F33.9 [place] [address] [place] [id number] [address] [place] [id number] Apr, Pain in right knee M25.561 a nd Pain in left knee M25.562 [place] [address] [address] Apr, [place] [address] [address] Apr, [place] [address] [place] [id number] [address] [place] [phone] Apr, [place] [address] [address] Mar, Generalized anxiety disorder F41.1 and Major depressive disorder, recurrent episode with anxious distress F33.9 [place] [address] [address] Mar, Generalized anxiety disorder F41.1 and Major depressive disorder, recurrent episode with anxious distress F33.9 [place] [address] [address] Mar, [place] [address] [address] Mar, [place] [address] [address] Mar, [place] [address] [address] Mar, Asthma J45.909 and Fibromyal elvira M79.7 [place] [address] [address] Mar, Chronic kidney disease, 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 ; Vitamin D deficiency E55.9 and Essential (primary) hypertension I10 [place] [address] [address] Feb, [place] [address] [address] Feb, Dysuria R30.0 ; Mixed stress and urge urinary incontinence N39.46 ; Fibromyalgia M79.7 and Chronic kidney disease, stage IV (severe) N18.4 [place] [address] [address] Feb, Chronic kidney disease, 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 [place] [address] [address] Feb, Chronic kidney disease, 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 [place] [id number] [place] [phone] Feb, [facility] [address] [address] Feb, Vitamin D deficiency, unspec ified E55.9 [facility] [address] [place] [id number] [place] [phone] Jan, [facility] [address] [place] [id number] [place] [phone] Jan, [facility] [address] [place] [id number] [place] [phone] Dec, [facility] [address] [address] Dec, Chronic kidney disease, 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 [facility] [address] [address] Dec, Dysthymic disorder F34.1 and Generalized anxiety disorder F41.1 [facility] [address] [address] Dec, [facility] [address] [address] Dec, [facility] [address] [address] Dec, Dysthymic disorder F34.1 and Generalized anxiety disorder F41.1 [facility] [address] [place] [id number] [address] [place] [id number] 08 Dec, 2015 Dysuria R30.0 ; Chronic kidn ey disease, stage 4 (severe) N18.4 ; Hypertension I10 ; Dyspepsia R10.13 ; Yeast dermatitis B37.2 ; Palpitations R00.2 ; Hypothyroid E03.9 ; Functional diarrhea K59.1 and Other seasonal allergic rhinitis J30.2 [facility] [address] [facility] [id number] [address] [place] [phone] Dec, [facility] [address] [address] Nov, Dysuria R30.0 and Stress inc ontinence N39.3 [facility] [address] [address] Nov, [facility] [address] [address] Nov, [facility] [address] [address] Nov, Osteoarthritis of knees, jose ateral M17.0 [place] [address] [address] Nov, Dysthymic disorder F34.1 and Generalized anxiety disorder F41.1 [place] [address] [address] Nov, [place] [address] [address] Nov, [place] [address] [address] Nov, Urgency of urination R39.15 [place] [address] [address] Nov, [place] [address] [address] Nov, Chronic kidney disease, 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 [place] [address] [address] Oct, Hypertension I10 ; Coronary artery disease involving iroquois coronary artery of iroquois heart, angina presence unspecified I25.10 ; Palpitations R00.2 ; Hypothyroid E03.9 ; Right foot pain M79.671 ; Functional diarrhea K59.1 and Other seasonal allergic rhinitis J30.2 [place] [address] [place] [id number] [address] [place] [id number] Oct, Dysthymic disorder F34.1 and Generalized anxiety disorder F41.1 [facility] [address] [facility] [id number] [address] [place] [id number] Sep, [facility] [address] [facility] [id number] [address] [place] [id number] Sep, [facility] [address] [facility] [id number] [address] [place] [phone] Sep, [facility] [address] [facility] [id number] [address] [place] [id number] Sep, [place] [address] [facility] [id number] [address] [place] [phone] Sep, [place] [address] [facility] [id number] [address] [place] [address] Sep, Dysthymic disorder F34.1 and Generalized anxiety disorder F41.1 [place] [address] [place] [id number] [address] [place] [address] Sep, Asthma with acute exacerbati on in adult J45.901 ; Dysuria R30.0 ; Chronic kidney disease, stage 4 (severe) N18.4 and History of anemia Z86.2 [place] [address] [place] [id number] [address] [place] [address] Sep, Generalized anxiety disorder F41.1 and Dysthymic disorder F34.1 [place] [address] [place] [id number] [address] [place] [phone] August, Screening breast examination Z12.39 and Acute recurrent maxillary sinusitis J01.01 [place] [address] [place] [id number] [address] [place] [address] August, Osteoarthritis of knees, jose ateral M17.0 [place] [address] [facility] [id number] [address] [place] [id number] August, Chronic kidney disease, 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 ; Acute non- recurrent maxillary sinusitis J01.00 ; Urinary problem R39.89 ; Bowel habit changes R19.4 ; Functional diarrhea K59.1 and History of colon polyps Z86.010 [facility] [address] [id number] [address] [place] [id number] 29 Jul, 2015 Dysthymic disorder F34.1 and Generalized anxiety disorder F41.1 [facility] [address] [id number] [address] [place] [id number] Jul, [facility] [address] [id number] [address] [place] [address] Jul, Dysthymic disorder F34.1 ; G eneralized anxiety disorder F41.1 and senior living use of drug Z79.899 [place] [address] [address] [facility] [id number] [address] [place] [id number] Jul, [place] [address] [facility] [id number] [address] [place] [phone] Jun, [facility] [address] [id number] [address] [place] [phone] Jun, [place] [address] [facility] [id number] [address] [place] [phone] May, [facility] [address] [id number] [address] [place] [id number] May, Dysthymic disorder F34.1 and Generalized anxiety disorder F41.1 [facility] [address] [id number] [address] [place] [id number] Apr, Kidney disease N28.9 [facility] [address] [facility] [id number] [address] [place] [id number] Apr, Generalized anxiety disorder F41.1 and Dysthymic disorder F34.1 [facility] [address] [facility] [id number] [address] [place] [address] Apr, Chronic kidney disease, 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 [place] [address] [address] Apr, Generalized anxiety disorder F41.1 ; Major depression, recurrent F33.9 and Sleep disturbance G47.9 [place] [address] [address] Mar, Generalized anxiety disorder F41.1 and Dysthymic disorder F34.1 [place] [address] [address] Mar, Generalized anxiety disorder F41.1 ; Dysthymic disorder F34.1 and Insomnia G47.00 [place] [address] [address] Mar, [place] [address] [address] Mar, [address] [address] Mar, Osteoarthritis of knees, jose ateral M17.[address] [address] Mar, Hypertension I10 ; Hypothyro id E03.9 ; Dysthymic disorder F34.1 ; Chronic kidney disease, stage 4 (severe) N18.4 and Nausea & vomiting R11.2 [place] [address] [address] Mar, Generalized anxiety disorder F41.1 ; Dysthymic disorder F34.1 and Insomnia G47.00 [place] [address] [address] Mar, Dehydration E86.0 ; Chronic kidney disease, stage 4 (severe) N18.4 and Nausea & vomiting R11.2 [facility] [address] [address] Mar, Gastroenteritis K52.9 [place] [address] [address] Mar, [address] [address] Mar, [address] [address] Feb, Dysthymic disorder F34.1 and Generalized anxiety disorder F41.[address] [address] Jan, UTI (urinary tract infection ) N39.0 ; Asthma J45.909 ; Coronary artery disease involving iroquois coronary artery of iroquois heart, angina presence unspecified I25.10 ; Hypertension I10 ; Hypothyroid E03.9 ; Vitamin D deficiency E55.9 ; Insomnia G47.00 ; Palpitations R00.2 ; Depressed F32.9 ; Restless leg G25.81 and Anxiety F41.[address] [address] Jan, Dysthymic disorder F34.1 and Generalized anxiety disorder F41.[address] [address] Jan, [address] [address] Dec, [address] [address] 28 Dec, 2014 Alkalosis 276.3 ; Chronic ki dney disease, Stage IV (severe) 585.4 ; Hyperpotassemia 276.7 ; Secondary hyperparathyroidism, renal 588.81 ; Proteinuria 791.0 ; Unspecified vitamin D deficiency 268.9 ; Anemia in chronic kidney disease 285.21 ; Other and unspecified hyperlipidemia 272.4 ; Hypertension, essential, benign 401.1 and Chronic kidney disease (CKD), stage III (moderate) 585.[address] [address] Dec, [facility] [address] [facility] [id number] [place] [address] Dec, Depressive disorder, not els ewhere classified 311 and Generalized anxiety disorder 300.02 [facility] [address] [place] [id number] [place] [address] Dec, [facility] [address] [place] [id number] [place] [address] Dec, [facility] [address] [address] Nov, Depressive disorder, not els ewhere classified 311 and Generalized anxiety disorder 300.02 [place] [address] [address] Nov, Arthritis of both knees 716. [address] [address] Nov, PAF (paroxysmal atrial fibri llation) 427.31 ; CAD (coronary artery disease) 414.00 ; Chest pain 786.50 and Chronic kidney disease (CKD) stage G4/A1, severely decreased glomerular filtration rate (GFR) between 15-29 mL/min/1.73 square meter and albuminuria creatinine ratio less than 30 mg/g 585.4 [place] [address] [address] Oct, Coronary atherosclerosis of unspecified type of vessel, iroquois or graft 414.00 ; Chronic kidney disease, Stage IV (severe) 585.4 ; Hypertension 401.9 and Edema 782.3 [place] [address] [address] Oct, Depressive disorder, not els ewhere classified 311 and Generalized anxiety disorder 300.02 [place] [address] [place] [id number] [place] [address] Oct, Depressive disorder, not els ewhere classified 311 and Generalized anxiety disorder 300.02 [place] [address] [address] Oct, [facility] [address] [address] Oct, [facility] [address] [address] Sep, [facility] [address] [address] Sep, Chronic kidney disease, Stag e IV (severe) 585.4 [facility] [address] [address] Sep, [facility] [address] [address] Sep, Coronary atherosclerosis of unspecified type of vessel, iroquois or graft 414.00 ; Hypertension 401.9 ; Edema 782.3 and Hypothyroidism 244.[address] [address] Sep, Coronary atherosclerosis of unspecified type of vessel, iroquois or graft 414.00 ; Hypertension 401.9 ; Fibromyalgia 729.1 ; Edema 782.3 ; Hypothyroidism 244.9 and Anemia 285.9 [place] [address] [address] Sep, Anxiety disorder, unspecifie d 300.00 and Depressive disorder, not elsewhere classified 311 [place] [address] [address] Sep, [facility] [address] [address] August, Generalized anxiety disorder 300.02 [place] [address] [address] August, Closed fracture of lateral m alleolus 824.2 [facility] [address] [address] Jul, [facility] [address] [address] 13 Jul, 2014 [facility] [address] [id number] [address] [place] [address], [place] [address] Jun, [facility] [address] [id number] [address] [place] [address], [place] [address] Jun, [facility] [address] [id number] [address] [place] [address], [place] [address] Jun, [facility] [address] [id number] [address] [place] [address], [place] [address] 13 Jun, 2014 [facility] [address] [id number] [address] [place] [address], [place] [address] Jun, [facility] [address] [id number] [address] [place] [address], [place] [address] Jun, [facility] [address] [id number] [address] [place] [address], [place] [address] 19 May, 2014 [facility] [address] [id number] [address] [place] [address], [place] [address] 19 May, 2014 [facility] [address] [id number] [address] [place] [address], [place] [address] 18 May, 2014 [facility] [address] [id number] [address] [place] [address], [place] [address] 18 May, 2014 [facility] [address] [id number] [address] [place] [address], [place] [address] 16 May, 2014 [facility] [address] [id number] [address] [place] [id number] 16 May, 2014 [facility] [address] [id number] [address] [place] [address], [place] [id number] 13 May, 2014 [facility] [address] [id number] [address] [place] [id number] 13 May, 2014 [facility] [address] [id number] [address] [place] [id number] May, [facility] [address] [id number] [address] [place] [address], [place] [id number] May, [facility] [address] [id number] [address] [place] [address], [place] [address] Apr, [facility] [address] [id number] [address] [place] [address], [place] [id number] Apr, [facility] [address] [id number] [address] [place] [address], [place] [id number] Mar, [facility] [address] [id number] [address] [place] [address], [place] [id number] Mar, [facility] [address] [id number] [address] [place] [address], [place] [id number] Mar, [facility] [address] [id number] [address] [place] [address], [place] [address] Mar, [facility] [address] [id number] [address] [place] [address], [place] [id number] Mar, [facility] [address] [id number] [address] [place] [address], [place] [id number] Mar, [facility] [address] [id number] [address] [place] [address], [place] [id number] Mar, [facility] [address] [id number] [address] [place] [address], [place] [id number] Feb, [facility] [address] [id number] [address] [place] [address], [place] [address] Feb, [facility] [address] [id number] [address] [place] [address], [place] [address] Feb, [facility] [address] [id number] [address] [place] [address], [place] [id number] Jan, [facility] [address] [id number] [address] [place] [address], [place] [id number] Jan, [facility] [address] [id number] [address] [place] [address], [place] [id number] Jan, [facility] [address] [id number] [address] [place] [address], [place] [id number] Jan, [facility] [address] [id number] [address] [place], [place] [address], [place] [address] Jan, [facility] [address] [id number] [address] [place] [address], [place] [address] Jan, [facility] [address] [id number] [address] [place] [address], [place] [address] Jan, [facility] [address] [id number] [address] [place] [address], [place] [address] Jan, [facility] [address] [id number] [address] [place] [address], [place] [address] Jan, [facility] [address] [id number] [address] [place] [address], [place] [address] Jan, [facility] [address] [id number] [address] [place] [address], [place] [address] Nov, [facility] [address] [id number] [address] [place] [address], [place] [address] Nov, [facility] [address] [id number] [address] [place] [address], [place] [address] Nov, [facility] [address] [id number] [address] [place] [address], [place] [address] Oct, [facility] [address] [id number] [address] [place] [address], [place] [address] Oct, [facility] [address] [id number] [address] [place] [address], [place] [address] Oct, [facility] [address] [id number] [address] [place] [address], [place] [address] Oct, [facility] [address] [id number] [address] [place] [address], [place] [address] Oct, [facility] [address] [id number] [facility] [place] [address] 17 Oct, 2013 [facility] [address] [id number] [facility] [place] [address] Oct, [facility] [address] [id number] [address] [place] [address], [place] [address] Oct, [facility] [address] [id number] [address] [place] [address], [place] [address] Oct, [facility] [address] [id number] [address] [place] [address], [place] [address] Sep, [facility] [address] [id number] [address] [place] [address], [place] [address] Sep, [facility] [address] [id number] [address] [place] [address], [place] [address] Sep, [facility] [address] [id number] [address] [place] [address], [place] [address] Sep, [facility] [address] [id number] [address] [place] [address], [place] [address] Sep, [facility] [address] [id number] [address] [place] [address], [place] [address] Sep, [facility] [address] [id number] [address] [place] [address], [place] [address] Sep, [facility] [address] [id number] [address] [place] [address], [place] [address] Sep, [facility] [address] [id number] [address] [place] [address], [place] [address] Sep, [facility] [address] [id number] [address] [place] [address], [place] [address] August, [facility] [address] [id number] [address] [place] [address], [place] [address] August, [facility] [address] [id number] [address] [place] [address], [place] [address] August, [facility] [address] [id number] [address] [place] [address], [place] [address] August, [facility] [address] [id number] [address] [place] [address], [place] [address] August, [facility] [address] [id number] [address] [place] [address], [place] [address] August, [facility] [address] [id number] [address] [place] [address], [place] [address] Jul, [facility] [address] [id number] [address] [place] [address], [place] [address] Jul, [facility] [address] [id number] [address] [place] [address], [place] [address] Jul, [facility] [address] [id number] [address] [place] [address], [place] [address] Jul, [facility] [address] [id number] [address] [place] [address], [place] [address] Jul, [facility] [address] [id number] [address] [place] [address], [place] [address] Jul, [facility] [address] [id number] [address] [place] [address], [place] [address] Jun, [facility] [address] [id number] [address] [place] [address], [place] [address] Jun, [facility] [address] [id number] [address] [place] [address], [place] [address] May, [facility] [address] [id number] [address] [place] [address], [place] [address] May, [facility] [address] [id number] [address] [place] [address], [place] [address] May, [facility] [address] [id number] [address] [place] [address], [place] [address] May, [facility] [address] [id number] [address] [place] [address], [place] [address] Apr, [facility] [address] [id number] [address] [place] [address], [place] [address] Apr, [facility] [address] [id number] [address] [place] [address], [place] [address] Mar, [facility] [address] [id number] [address] [place] [address], [place] [address] Mar, [facility] [address] [id number] [address] [place] [address], [place] [address] Mar, [facility] [address] [id number] [address] [place] [address], [place] [address] Mar, [facility] [address] [id number] [address] [place] [address], [place] [address] Mar, [facility] [address] [id number] [address] [place] [address], [place] [address] Mar, [facility] [address] [id number] [address] [place] [address], [place] [address] Feb, [facility] [address] [id number] [address] [place] [address], [place] [address] Feb, [facility] [address] [id number] [address] [place] [address], [place] [address] 14 Feb, 2013 [facility] [address] [id number] [address] [place] [address], [place] [address] Feb, [facility] [address] [id number] [address] [place] [address], [place] [address] Feb, [facility] [address] [id number] [address] [place] [address], [place] [address] 05 Feb, 2013 [facility] [address] [id number] [address] [place] [address], [place] [address] Jan, [facility] [address] [id number] [address] [place] [address], [place] [address] Jan, [facility] [address] [id number] [address] [place] [address], [place] [address] Jan, [facility] [address] [id number] [address] [place] [address], [place] [address] Jan, [facility] [address] [id number] [address] [place] [address], [place] [address] Jan, [facility] [address] [id number] [address] [place] [address], [place] [address] Jan, [facility] [address] [id number] [address] [place] [address], [place] [address] Dec, [facility] [address] [id number] [address] [place] [address], [place] [address] Dec, [facility] [address] [id number] [address] [place] [address], [place] [address] Nov, [facility] [address] [id number] [address] [place] [address], [place] [address] Nov, [facility] [address] [id number] [address] [place] [address], [place] [address] Oct, [facility] [address] [id number] [address] [place] [address], [place] [address] Oct, [facility] [address] [id number] [address] [place] [address], [place] [address] Oct, [facility] [address] [id number] [address] [place] [address], [place] [address] Oct, [facility] [address] [id number] [address] [place] [address], [place] [address] Oct, [facility] [address] [id number] [address] [place] [address], [place] [address] Oct, [facility] [address] [id number] [address] [place] [address], [place] [address] Sep, [facility] [address] [id number] [address] [place] [address] [place] [address] Sep, [facility] [address] [id number] [address] [place] [address], [place] [address] Sep, [facility] [address] [id number] [address] [place] [address], [place] [address] Sep, [facility] [address] [id number] [address] [place] [address], [place] [address] August, [facility] [address] [id number] [address] [place] [address], [place] [address] August, [facility] [address] [id number] [address] [place] [address], [place] [address] August, [facility] [address] [id number] [address] [place] [address], [place] [address] August, [facility] [address] [id number] [address] [place] [address], [place] [address] August, [facility] [address] [id number] [address] [place] [address], [place] [address] Jul, [facility] [address] [id number] [address] [place] [address], [place] [address] Jul, [facility] [address] [id number] [address] [place] [address], [place] [address] Jul, [facility] [address] [id number] [address] [place] [address], [place] [address] Jul, [facility] [address] [id number] [address] [place] [address], [place] [address] Jul, [facility] [address] [id number] [address] [place] [address], [place] [address] Jul, [facility] [address] [id number] [address] [place] [address], [place] [address] Jul, [facility] [address] [id number] [address] [place] [address], [place] [address] Jul, [facility] [address] [id number] [address] [place] [address], [place] [address] Jul, [facility] [address] [id number] [address] [place] [address], [place] [address] Jul, [facility] [place] [address] [id number] [place] [id number] Jun, [facility] [address] [id number] [address] [place] [address], [place] [address] Jun, [facility] [address] [id number] [address] [place] [address], [place] [address] Jun, [facility] [address] [id number] [address] [place] [address], [place] [address] Jun, [facility] [address] [id number] [address] [place] [address], [place] [address] Jun, [facility] [address] [id number] [address] [place] [address], [place] [address] May, [facility] [address] [id number] [address] [place] [address], [place] [address] May, [facility] [address] [id number] [address] [place] [address], [place] [address] May, [facility] [address] [id number] [address] [place] [address], [place] [address] Apr, [facility] [address] [id number] [address] [place] [address], [place] [address] Apr, [facility] [address] [id number] [address] [place] [address], [place] [address] Apr, [facility] [address] [id number] [address] [place] [address], [place] [address] Apr, [facility] [address] [id number] [address] [place] [address], [place] [address] Apr, [facility] [address] [id number] [address] [place] [address] [address] Apr, [facility] [address] [id number] [address] [place] [address], [place] [address] Mar, [facility] [address] [id number] [address] [place] [address], [place] [address] Mar, [facility] [address] [id number] [address] [place] [address], [place] [address] Mar, [facility] [address] [id number] [address] [place] [address], [place] [address] Mar, [facility] [address] [id number] [address] [place] [address], [place] [address] Feb, [facility] [address] [id number] [address] [place] [address], [place] [address] Feb, [facility] [address] [id number] [address] [place] [address], [place] [address] Feb, [facility] [address] [id number] [address] [place] [address], [place] [address] Feb, [facility] [address] [id number] [address] [place] [address], [place] [address] Feb, [facility] [address] [id number] [address] [place] [address], [place] [address] Feb, [facility] [address] [id number] [address] [place] [address], [place] [address] Feb, [facility] [address] [id number] [address] [place] [address] Feb, [facility] [address] [id number] [address] [place] [address], [place] [address] Feb, [facility] [address] [id number] [address] [place] [address], [place] [address] Feb, [facility] [address] [id number] [address] [place] [address], [place] [address] Feb, [facility] [address] [id number] [address] [place] [id number] 05 Feb, 2011 [facility] [address] [id number] [address] [place] [address], [place] [address] 05 Feb, 2012 [facility] [address] [id number] [address] [place] [address], [place] [address] Feb, [facility] [address] [id number] [address] [place] [address] Feb, [facility] [address] [id number] [address] [place] [address], [place] [address] Feb, [facility] [address] [id number] [address] [place] [address], [place] [address] Jan, [facility] [address] [id number] [address] [place] [address], [place] [address] Jan, [facility] [address] [id number] [address] [place] [address], [place] [address] 31 Jan, 2012 [facility] [address] [id number] [address] [place] [id number] 31 Jan, 2012 [facility] [address] [id number] [address] [place] [address], [place] [address] 30 Jan, 2012 [facility] [address] [id number] [address] [place] [address] Jan, [facility] [address] [id number] [address] [place] [address], [place] [address] 25 Jan, 2012 [facility] [address] [id number] [address] [place] [id number] 16 Jan, 2012 [facility] [address] [id number] [address] [place] [id number] 16 Jan, 2012 [facility] [address] [id number] [address] [place] [id number] 15 Jan, 2012 [facility] [address] [id number] [address] [place] [id number] 15 Jan, 2012 [facility] [address] [id number] [address] [place] [address], [place] [address] Jan, [facility] [address] [id number] [address] [place] [address], [place] [address] 26 Dec, 2011 [facility] [address] [id number] [address] [place] [address], [place] [address] 26 Sep, 2011 [facility] [address] [id number] [address] [place] [address], [place] [address] 24 Dec, 2011 [facility] [address] [id number] [address] [place] [address], [place] [address] 23 Dec, 2011 [facility] [address] [id number] [address] [place] [address], [place] [address] 22 Dec, 2011 [facility] [address] [id number] [address] [place] [address], [place] [address] 21 Dec, 2011 [facility] [address] [id number] [address] [place] [address], [place] [address] 20 Dec, 2011 [facility] [address] [id number] [address] [place] [address], [place] [address] 20 Dec, 2011 [facility] [address] [id number] [address] [place] [address], [place] [address] 07 Dec, 2011 [facility] [address] [id number] [address] [place] [address], [place] [address] 06 Sep, 2011 [facility] [address] [id number] [address] [place] [address], [place] [address] 06 Sep, 2011 [facility] [address] [id number] [address] [place] [address], [place] [address] 05 Sep, 2011 [facility] [address] [id number] [address] [place] [address], [place] [address] 23 Nov, 2011 [facility] [address] [id number] [address] [place] [address], [place] [address] 17 Nov, 2011 [facility] [address] [id number] [address] [place] [address], [place] [address] Nov, [facility] [address] [id number] [address] [place] [address], [place] [address] Nov, [facility] [address] [id number] [address] [place] [address], [place] [address] Nov, [facility] [address] [id number] [address] [place] [address], [place] [address] Nov, [facility] [address] [id number] [address] [place] [address], [place] [address] Nov, [facility] [address] [id number] [address] [place] [address], [place] [address] Nov, [facility] [address] [id number] [address] [place] [address], [place] [address] Oct, [facility] [address] [id number] [address] [place] [address], [place] [address] Oct, [facility] [address] [id number] [address] [place] [address], [place] [address] Oct, [facility] [address] [id number] [address] [place] [address], [place] [address] Oct, [facility] [address] [id number] [address] [place] [address], [place] [address] Oct, [facility] [address] [id number] [address] [place] [address], [place] [address] Oct, [facility] [address] [id number] [address] [place] [address], [place] [address] Oct, [facility] [address] [id number] [address] [place] [address], [place] [address] Sep, [facility] [address] [id number] [address] [place] [address], [place] [address] Sep, [facility] [address] [id number] [address] [place] [address], [place] [address] August, [facility] [address] [id number] [address] [place] [address], [place] [address] August, [facility] [address] [id number] [address] [place] [address], [place] [address] August, [facility] [address] [id number] [address] [place] [address], [place] [address] August, [facility] [address] [id number] [address] [place] [address], [place] [address] Jul, [facility] [address] [id number] [address] [place] [address], [place] [address] Jul, [facility] [address] [id number] [address] [place] [address], [place] [address] Jul, [facility] [address] [id number] [address] [place] [address], [place] [address] Jul, [facility] [address] [id number] [address] [place] [address], [place] [address] Jul, [facility] [address] [id number] [address] [place] [address], [place] [address] Jul, [facility] [address] [id number] [address] [place] [address], [place] [address] Jul, [facility] [address] [id number] [address] [place] [address], [place] [address] Jul, [facility] [address] [id number] [address] [place] [address], [place] [address] Jul, [facility] [address] [id number] [address] [place] [address], [place] [address] 23 Jun, 2011 [facility] [address] [id number] [address] [place] [address], [place] [address] 19 Jun, 2011 [facility] [address] [id number] [address] [place] [address], [place] [address] 15 Jun, 2011 [facility] [address] [id number] [address] [place] [address], [place] [address] 14 Jun, 2011 [facility] [address] [id number] [address] [place] [address], [place] [address] Jun, [facility] [address] [id number] [address] [place] [address], [place] [address] Jun, [facility] [address] [id number] [address] [place] [address], [place] [address] Jun, [facility] [address] [id number] [address] [place] [address], [place] [address] May, [facility] [address] [id number] [address] [place] [address], [place] [address] May, [facility] [address] [id number] [address] [place] [address], [place] [address] May, [facility] [address] [id number] [address] [place] [address], [place] [address] May, [facility] [address] [id number] [address] [place] [address], [place] [address] May, [facility] [address] [id number] [address] [place] [address], [place] [address] Apr, [facility] [address] [id number] [address] [place] [address], [place] [address] Apr, [facility] [address] [id number] [address] [place] [address], [place] [address] Apr, [facility] [address] [id number] [address] [place] [address], [place] [address] Apr, [facility] [address] [id number] [address] [place] [address], [place] [address] Apr, [facility] [address] [id number] [address] [place] [address], [place] [address] Mar, [facility] [address] [id number] [address] [place] [address], [place] [address] Mar, [facility] [address] [id number] [address] [place] [address], [place] [address] Mar, [facility] [address] [id number] [address] [place] [address], [place] [address] Mar, [facility] [address] [id number] [address] [place] [address], [place] [address] Mar, [facility] [address] [id number] [address] [place] [address], [place] [address] Mar, [facility] [address] [id number] [address] [place] [address], [place] [address] Mar, [facility] [address] [id number] [address] [place] [address], [place] [address] Feb, [facility] [address] [id number] [address] [place] [address], [place] [address] Feb, [facility] [address] [id number] [address] [place] [address], [place] [address] Feb, [facility] [address] [id number] [address] [place] [address], [place] [address] Feb, [facility] [address] [id number] [address] [place] [address], [place] [address] Jan, [facility] [address] [id number] [address] [place] [address], [place] [id number] Jan, [facility] [address] [id number] [address] [place] [address], [place] [id number] Jan, [facility] [address] [id number] [address] [place] [address], [place] [phone] Jan, [facility] [address] [id number] [address] [place] [address], [place] [phone] Nov, [facility] [address] [id number] [address] [place] [address], [place] [id number] 30 Mar, 2010 [facility] [address] [id number] [address] [place] [address], [place] [id number] Mar, [facility] [address] [id number] [address] [place] [phone] Mar, [facility] [address] [id number] [address] [place] [phone] Mar, [facility] [address] [id number] [address] [place] [phone] Mar, [facility] [address] [id number] [address] [place] [phone] Mar, [facility] [address] [id number] [address] [place] [phone] Feb, [facility] [address] [id number] [address] [place] [phone] Feb, [facility] [address] [facility] [id number] [address] [place] [phone] Jan, [facility] [address] [facility] [id number] [address] [place] [phone] Jan, [facility] [address] [facility] [id number] [address] [place] [phone] Jan, IMMUNIZATIONS No Known Immunizations SOCIAL HISTORY [...] History CPAP Noncompliance_ Dr. Madden advises a [employer] driving. Medical History Bacterial meningitis 12/2016 Medical [...] 09-2015 & 2007 Surgical History Bladder surgery [facility] 03/2016 Surgical History Neurotransmitter placed 10/2017 Surgical History retninal repair 12/31/2017 Surgical History cataract surgery 2018 Surgical History cataract surgery 2019 Surgical History SCS trial x7 days 2018 Surgical History SCS implant removed. 2019 Hospitalization History Surgeries Only Hospitalization History bacterial meningitis December 2016 Hospitalization History [facility] psych for SI 1988 Hospitalization History [facility]-Altered mental status 05/2017 Hospitalization History sepsis, UTI, headache 08/03/2018-
--- OUTSIDE RECORDS SUMMARY | 2019-08-01 10:10 | XMS REPORT ---
Author Author Lola Tyson Doctor Organization [facility] Address Unknown Phone Unavailable Care Team Providers Care Cytology Technologist Name Role Phone Migration, Doctor Unavailable Unavailable PROBLEMS Type Condition ICD9-CM Code ZBR77-OT Code Onset Dates Condition S tatus SNOMED Code Problem Hypothyroid E03.9 Active 90892341 Problem Asthma J45.909 Active 877266200 Problem Insomnia G47.00 Active 759286542 Problem Depressed F32.9 Active 15091428 Problem Palpitations R00.2 Active 5475430 2 Problem Functional diarrhea K59.1 Active 89478382 Problem Chronic kidney disease, stage 4 (severe) N18.4 Active 561684275 Problem Degenerative tear of medial meniscus of left knee M23.204 Active 368296541 Problem Dysthymic disorder F34.1 Active 7 6600984 Problem Primary osteoarthritis of left knee M17.12 Active 879116188 Problem Generalized anxiety disorder F41.1 A ctive 98409459 Problem Restless leg G25.81 Active 3582160 8 Problem Coronary artery disease invo lving atka coronary artery of atka heart, angina presence unspecified I25.10 Active 4545129136599 Problem Hypokalemia E87.6 Active 24550696 Problem Other seasonal allergic rhinitis J30.2 Active 960761913 Problem Mixed stress and urge urinary incontinence N39.46 Active 810374486 Problem Fibromyalgia M79.7 Active 0309674 05 Problem Essential (primary) hypertension I10 Active 33037796 Problem Long-term use of high-risk medication Z79.899 Active 971229304 Problem Vitamin D deficiency E55.9 Active 32980034 Problem Anemia in chronic kidney disease D63.1 Active 845994866351449 Problem Low back pain M54.5 Active 088463 009 Problem Chronic kidney disease, unspecified N18.9 Active 284885667 Problem Abnormal chest CT R93.8 Active 44 9542424 Problem Mood disorder F39 Active 554309 05 Problem Stage 3 chronic kidney disease N18.3 Active 875466040 Problem Body mass index (BMI) of 40.0-44.9 in adult Z68.41 Active 140798684 Problem Other chronic pain G89.29 Active 8 8886255 Problem Asthma with acute exacerbation in adult J45.901 Active 033254671 Problem Major depressive disorder, recurrent, moderate F33 .1 Active 951578655 Problem History of colon polyps Z86.010 Active 323008266 Problem History of anemia Z86.2 Active 27 1605171 Problem Seasonal allergic rhinitis due to pollen J30.1 Active 54452708 Problem Restless leg syndrome G25.81 Active 48343031 Problem Chronic pain syndrome G89.4 Active 176656227 Problem Perimenopausal vasomotor symptoms N95.1 Active 021874169 ALLERGIES No Information ENCOUNTERS Encounter Location Date Diagnosis [facility] [address] [facility] [id number] [address] [place] [id number] Jan, [facility] [address] [facility] [id number] [address] [place] [phone] Dec, [facility] [address] [facility] [id number] [address] [place] [phone] Dec, [facility] [address] [facility] [id number] [address] [place] [phone] Dec, [facility] [address] [facility] [id number] [address] [place] [id number] Nov, Major depressive disorder, r ecurrent, moderate F33.1 ; Generalized anxiety disorder F41.1 and Dysthymic disorder F34.1 [facility] [address] [facility] [id number] [address] [place] [phone] Nov, [facility] [address] [facility] [id number] [address] [place] [phone] Nov, Chronic pain syndrome G89.4 [facility] [address] [facility] [id number] [address] [place] [id number] Nov, Restless leg syndrome G25.81 [facility] [address] [facility] [id number] [address] [place] [id number] Nov, Pain in right shoulder M25.5 11 ; Restless leg syndrome G25.81 ; Other chronic pain G89.29 ; Screening for breast cancer Z12.39 ; Insomnia G47.00 and Morbid obesity E66.01 [facility] [address] [id number] [address] [place] [phone] Nov, [facility] [address] [facility] [id number] [address] [place] [id number] Oct, Major depressive disorder, r ecurrent, moderate F33.1 ; Generalized anxiety disorder F41.1 and Dysthymic disorder F34.1 [facility] [address] [id number] [address] [place] [id number] Oct, [facility] [address] [id number] [address] [place] [id number] Oct, Cellulitis of left lower ext remity L03.116 and Morbid obesity E66.01 [facility] [address] [facility] [id number] [address] [place] [phone] Oct, [facility] [address] [id number] [address] [place] [id number] Oct, [facility] [address] [facility] [id number] [address] [place] [phone] Oct, Generalized anxiety disorder F41.1 and Major depressive disorder, recurrent episode with anxious distress F33.9 [facility] [address] [facility] [id number] [address] [place] [id number] Oct, [facility] [address] [facility] [id number] [address] [place] [id number] Oct, Chronic pain syndrome G89.4 [facility] [address] [id number] [address] [place] [id number] Oct, Chronic pain syndrome G89.4 [facility] [address] [facility] [id number] [address] [place] [id number] Oct, UTI symptoms R39.9 ; Acute c ystitis without hematuria N30.00 and Morbid obesity E66.01 [facility] [address] [id number] [address] [place] [id number] Oct, [facility] [address] [facility] [id number] [address] [place] [id number] Oct, Chronic pain syndrome G89.4 [facility] [address] [id number] [address] [place] [id number] Sep, [facility] [address] [id number] [address] [place] [id number] Sep, Generalized anxiety disorder F41.1 and Major depressive disorder, recurrent episode with anxious distress F33.9 [facility] [address] [facility] [id number] [address] [place] [id number] Sep, Chronic kidney disease, 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 [facility] [address] [id number] [address] [place] [id number] Sep, Fibromyalgia M79.7 and Chron ic pain syndrome G89.4 [facility] [address] [id number] [address] [place] [id number] Sep, [address] [address] Sep, Chronic pain syndrome G89.4 [facility] [address] [facility] [id number] [address] [place] [id number] Sep, [facility] [address] [facility] [id number] [address] [place] [id number] Sep, Chronic pain syndrome G89.4 ; Fibromyalgia M79.7 and Morbid obesity E66.01 [facility] [address] [id number] [address] [place] [id number] August, Generalized anxiety disorder F41.1 and Major depressive disorder, recurrent episode with anxious distress F33.9 [facility] [address] [facility] [id number] [address] [place] [id number] August, Fibromyalgia M79.7 [facility] [address] [facility] [id number] [address] [place] [id number] August, Restless leg syndrome G25.81 ; Vitamin D deficiency E55.9 ; Urinary tract infection without hematuria, site unspecified N39.0 ; Pain in right shoulder M25.511 ; Other chronic pain G89.29 ; Biceps tendinitis on right M75.21 and Morbid obesity E66.01 [facility] [address] [id number] [address] [place] [id number] Jul, Urinary tract infection with out hematuria, site unspecified N39.0 and Morbid obesity E66.01 [facility] [address] [id number] [address] [place] [id number] Jul, [place] [address] [facility] [id number] [address] [place] [id number] Jul, [place] [address] [facility] [id number] [address] [place] [id number] Jul, Fibromyalgia M79.7 [facility] [address] [facility] [id number] [address] [place] [id number] Jul, Acute pain of right shoulder M25.511 [place] [address] [facility] [id number] [address] [place] [id number] Jul, Acute pain of right shoulder M25.511 and Morbid obesity E66.01 [facility] [address] [id number] [address] [place] [id number] Jun, [facility] [address] [facility] [id number] [address] [place] [id number] Jun, Generalized anxiety disorder F41.1 and Major depressive disorder, recurrent episode with anxious distress F33.9 [facility] [address] [id number] [address] [place] [id number] Jun, [facility] [address] [facility] [id number] [address] [place] [phone] Jun, Fibromyalgia M79.7 [facility] [address] [id number] [address] [place] [id number] 04 Jun, 2018 Acute pain of right shoulder M25.511 ; Acute pain of right hip M25.551 and Morbid obesity E66.01 [facility] [address] [place] [id number] [address] [place] [id number] 11 May, 2018 Burning with urination R30.0 ; Vaginal discharge N89.8 ; Chronic kidney disease, stage 4 (severe) N18.4 ; Body mass index (BMI) of 40.0-44.9 in adult Z68.41 and Morbid obesity E66.01 [facility] [address] [place] [id number] [address] [place] [id number] 07 May, 2018 Fibromyalgia M79.7 [place] [address] [id number] 06 May, 2018 Generalized anxiety disorder F41.1 and Major depressive disorder, recurrent episode with anxious distress F33.9 [place] [address] [id number] Apr, [facility] [address] [address] Apr, Fibromyalgia M79.7 [facility] [address] [place] [id number] [address] [place] [phone] Mar, Acute UTI N39.0 and Dysuria R30.0 [place] [address] [id number] Mar, Fibromyalgia M79.7 [facility] [address] [place] [id number] [address] [place] [id number] Feb, [facility] [address] [id number] Feb, [facility] [address] [place] [id number] [place] [phone] Feb, [facility] [address] [place] [id number] [place] [address] Feb, Fibromyalgia M79.7 [facility] [address] [id number] [address] [place] [id number] Feb, Complicated UTI (urinary tra ct infection) N39.0 [facility] [address] [id number] [address] [place] [id number] Feb, [facility] [address] [id number] [address] [place] [id number] Jan, Generalized anxiety disorder F41.1 and Major depressive disorder, recurrent episode with anxious distress F33.9 [facility] [address] [id number] [address] [place] [id number] Jan, Acute conjunctivitis of left eye, unspecified acute conjunctivitis type H10.32 [facility] [address] [id number] [address] [place] [id number] Jan, [facility] [address] [facility] [id number] [address] [place] [id number] Jan, Acute non-recurrent maxillar y sinusitis J01.00 ; Dysuria R30.0 ; Perimenopausal vasomotor symptoms N95.1 and Fibromyalgia M79.7 [facility] [address] [id number] [address] [place] [id number] Dec, Vitamin D deficiency E55.9 [facility] [address] [id number] [address] [place] [id number] Dec, Vitamin D deficiency E55.9 [facility] [address] [id number] [address] [place] [id number] 24 Dec, 2017 Vitamin D deficiency E55.9 [facility] [address] [id number] [address] [place] [phone] 12 Dec, 2017 [facility] [address] [facility] [id number] [address] [place] [id number] Dec, Fibromyalgia M79.7 [facility] [address] [facility] [id number] [address] [place] [id number] Nov, [facility] [address] [id number] [address] [place] [id number] Nov, [facility] [address] [id number] [address] [place] [id number] Nov, [facility] [address] [id number] [address] [place] [phone] Nov, Fibromyalgia M79.7 ; Vision changes H53.9 ; Chest wall pain R07.89 and Chronic pain syndrome G89.4 [facility] [address] [id number] [address] [place] [id number] Nov, [facility] [address] [id number] [address] [place] [id number] Nov, Rash of hands R21 [facility] [address] [id number] [address] [place] [id number] Nov, Generalized anxiety disorder F41.1 and Major depressive disorder, recurrent episode with anxious distress F33.9 [facility] [address] [id number] [address] [place] [id number] Nov, Fibromyalgia M79.7 [facility] [address] [id number] [address] [place] [id number] Nov, Complicated UTI (urinary tra ct infection) N39.0 [facility] [address] [id number] [address] [place] [phone] Oct, [facility] [address] [id number] [address] [place] [id number] Oct, Generalized anxiety disorder F41.1 and Major depressive disorder, recurrent episode with anxious distress F33.9 [facility] [address] [id number] [address] [place] [id number] Oct, [facility] [address] [id number] [address] [place] [id number] Oct, Fibromyalgia M79.7 [facility] [address] [id number] [address] [place] [id number] Sep, Restless leg syndrome G25.81 and Restless leg G25.81 [facility] [address] [place] [id number] [address] [place] [id number] Sep, [facility] [address] [place] [id number] [address] [place] [id number] Sep, Seasonal allergic rhinitis d ue to pollen J30.1 ; Screening for breast cancer Z12.31 ; Chest pain at rest R07.9 ; Restless leg syndrome G25.81 ; Essential (primary) hypertension I10 and Depressed F32.9 [facility] [address] [address] August, Fibromyalgia M79.7 [place] [address] [id number] August, [facility] [address] [address] August, [facility] [address] [place] [id number] [address] [place] [id number] August, Abnormal chest CT R93.8 [place] [address] [address] August, Generalized anxiety disorder F41.1 and Major depressive disorder, recurrent episode with anxious distress F33.9 [facility] [address] [place] [id number] [address] [place] [address] August, Abnormal chest CT R93.8 [place] [address] [place] [id number] [address] [place] [id number] Jul, [facility] [address] [address] Jul, Chronic kidney disease, 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 [facility] [address] [place] [id number] [address] [place] [id number] Jul, [facility] [address] [facility] [id number] [address] [place] [id number] Jul, Restless leg G25.81 ; Mixed stress and urge urinary incontinence N39.46 and Fibromyalgia M79.7 [facility] [address] [facility] [id number] [address] [place] [phone] Jul, Chronic kidney disease, 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 [facility] [address] [facility] [id number] [address] [place] [id number] Jun, Orthostatic hypotension I95. 1 ; Chronic kidney disease, stage 4 (severe) N18.4 ; Chest wall discomfort R07.89 and Body mass index (BMI) of 40.0- 44.9 in adult Z68.41 [place] [address] [facility] [id number] [address] [place] [phone] Jun, [facility] [address] [place] [id number] [address] [place] [id number] Jun, Orthostatic hypotension I95. 1 [facility] [address] [facility] [id number] [address] [place] [phone] Jun, [facility] [address] [facility] [id number] [address] [place] [id number] Jun, Orthostatic hypotension I95. 1 ; Dysuria R30.0 and Acute cystitis without hematuria N30.00 [facility] [address] [facility] [id number] [address] [place] [id number] Jun, [facility] [address] [facility] [id number] [address] [place] [id number] Jun, Chronic kidney disease, 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 [facility] [address] [facility] [id number] [address] [place] [phone] Jun, Fibromyalgia M79.7 [facility] [address] [place] [id number] [address] [place] [id number] Jun, [facility] [address] [place] [id number] [address] [place] [id number] Jun, [facility] [address] [id number] [address] [place] [id number] May, Abnormal chest [address] R93.8 and Stage 3 chronic kidney disease N18.3 [facility] [address] [id number] [address] [place] [id number] May, Chronic kidney disease, 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 [facility] [address] [id number] [address] [place] [id number] May, Chronic kidney disease, 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 [facility] [address] [id number] [address] [place] [id number] May, Abnormal chest [address] R93.8 [facility] [address] [id number] [address] [place] [id number] May, [facility] [address] [id number] [address] [place] [id number] May, [facility] [address] [id number] [address] [place] [phone] May, Generalized anxiety disorder F41.1 and Major depressive disorder, recurrent episode with anxious distress F33.9 [facility] [address] [id number] [address] [place] [address] May, Mood disorder F39 [facility] [address] [id number] [address] [place] [id number] Apr, [facility] [address] [id number] [address] [place] [id number] Apr, Infected skin lesion L08.9 a nd Muscle strain of right shoulder region, initial encounter S46.911A [facility] [address] [id number] [address] [place] [id number] Apr, Generalized anxiety disorder F41.1 and Major depressive disorder, recurrent episode with anxious distress F33.9 [facility] [address] [id number] [address] [place] [id number] Apr, [facility] [address] [id number] [address] [place] [id number] Apr, Recent urinary tract infecti on Z87.440 and Hypothyroid E03.9 [facility] [address] [id number] [address] [place] [id number] Apr, Generalized anxiety disorder F41.1 and Major depressive disorder, recurrent episode with anxious distress F33.9 [facility] [address] [id number] [address] [place] [address] Apr, Recent urinary tract infecti on Z87.440 [facility] [address] [id number] [address] [place] [id number] Mar, [facility] [address] [id number] [address] [place] [id number] Mar, Dysuria R30.0 ; Acute cystit is without hematuria N30.00 and BMI 40.0-44.9, adult Z68.41 [place] [address] [id number] [address] [place] [id number] Mar, [facility] [address] [id number] [address] [place] [id number] Mar, [facility] [address] [id number] [address] [place] [phone] Mar, Generalized anxiety disorder F41.1 and Major depressive disorder, recurrent episode with anxious distress F33.9 [facility] [address] [id number] [address] [place] [phone] Feb, Conjunctivitis, bacterial H1 0.9 [facility] [address] [id number] [address] [place] [phone] Feb, [facility] [address] [id number] [address] [place] [phone] 15 Feb, 2017 Conjunctivitis, bacterial H1 0.9 [facility] [address] [place] [id number] [address] [place] [id number] Feb, [facility] [address] [place] [id number] [place] [phone] Feb, Dysuria R30.0 ; Acute cystit is N30.00 and BMI 40.0-44.9, adult Z68.41 [facility] [address] [address] Feb, [facility] [address] [address] Feb, Generalized anxiety disorder F41.1 and Major depressive disorder, recurrent episode with anxious distress F33.9 [place] [address] [address] Feb, Mood disorder F39 and BMI 40 .0-44.9, adult Z68.41 [facility] [address] [address] Jan, [place] [address] [address] Jan, [place] [address] [address] Jan, Hypothyroid E03.9 [facility] [address] [address] Jan, [place] [address] [id number] Jan, Chronic kidney disease, unsp ecified N18.9 ; Hypokalemia E87.6 ; Essential (primary) hypertension I10 ; Fibromyalgia M79.7 ; Coronary artery disease involving [place] coronary artery of [place] heart, angina presence unspecified I25.10 ; Hypothyroid E03.9 and Encounter for immunization Z23 [facility] [address] [id number] Jan, Hypothyroid E03.9 [facility] [address] [id number] [address] [place] [id number] 02 Jan, 2017 [facility] [address] [id number] [address] [place] [id number] 28 Dec, 2016 Vitamin D deficiency E55.9 [facility] [address] [id number] [address] [place] [id number] 28 Dec, 2016 Primary osteoarthritis of le ft knee M17.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 [facility] [address] [id number] [address] [place] [id number] 19 Dec, 2016 Fibromyalgia M79.7 [facility] [address] [id number] [address] [place] [id number] 18 Dec, 2016 Mood disorder F39 [facility] [address] [id number] [address] [place] [id number] 13 Dec, 2016 [facility] [address] [id number] [address] [place] [id number] 13 Dec, 2016 Generalized anxiety disorder F41.1 and Major depressive disorder, recurrent episode with anxious distress F33.9 [facility] [address] [id number] [address] [place] [id number] 11 Dec, 2016 [facility] [address] [id number] [address] [place] [id number] 08 Dec, 2016 Streptococcal meningitis G00 .2 [facility] [address] [id number] [address] [place] [id number] 07 Dec, 2016 Streptococcal meningitis G00 .2 [facility] [address] [id number] [address] [place] [id number] 07 Dec, 2016 [facility] [address] [id number] [address] [place] [phone] 06 Dec, 2016 Streptococcal meningitis G00 .2 [facility] [address] [id number] [address] [place] [phone] Dec, [facility] [address] [facility] [id number] [address] [place] [id number] Dec, Major depressive disorder, r ecurrent episode with anxious distress F33.9 [facility] [address] [facility] [id number] [address] [place] [phone] Nov, Fever, unspecified fever cau se R50.9 [facility] [address] [facility] [id number] [address] [place] [phone] Nov, [facility] [address] [facility] [id number] [address] [place] [id number] Nov, Hypothyroid E03.9 [facility] [address] [facility] [id number] [address] [place] [id number] Nov, Generalized anxiety disorder F41.1 and Major depressive disorder, recurrent episode with anxious distress F33.9 [facility] [address] [facility] [id number] [address] [place] [phone] Nov, [facility] [address] [facility] [id number] [address] [place] [id number] Oct, Dental examination Z01.20 [facility] [address] [facility] [id number] [address] [place] [id number] Oct, Generalized anxiety disorder F41.1 and Major depressive disorder, recurrent episode with anxious distress F33.9 [facility] [address] [facility] [id number] [address] [place] [id number] Oct, Chronic kidney disease, 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 [facility] [address] [facility] [id number] [address] [place] [id number] Oct, [facility] [address] [facility] [id number] [address] [place] [phone] Oct, Fibromyalgia M79.7 [facility] [address] [facility] [id number] [address] [place] [phone] Oct, [facility] [id number] [place] [id number] Oct, Generalized anxiety disorder F41.1 ; Major depressive disorder, recurrent episode with anxious distress F33.9 and Bipolar disorder, current episode manic without psychotic features F31.10 [facility] [address] [place] [id number] [address] [place] [phone] Sep, [place] [address] [place] [id number] [address] [place] [phone] Sep, [place] [address] [address] Sep, Vitamin D deficiency E55.9 [place] [address] [address] Sep, Vitamin D deficiency E55.9 [place] [address] [address] Sep, [place] [address] [address] Sep, Chronic kidney disease, 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 ; Hypothyroid E03.9 ; Restless leg G25.81 ; Fibromyalgia M79.7 ; Essential (primary) hypertension I10 ; Vitamin D deficiency E55.9 ; Dyspepsia R10.13 ; Anemia in chronic kidney disease D63.1 ; Chronic kidney disease, unspecified N18.9 ; Coronary artery disease involving atka coronary artery of atka heart, angina presence unspecified I25.10 ; Screening breast examination Z12.39 and Low back pain M54.5 [facility] [address] [place] [id number] [address] [place] [phone] August, Generalized anxiety disorder F41.1 and Major depressive disorder, recurrent episode with anxious distress F33.9 [place] [address] [place] [id number] [address] [place] [phone] August, Generalized anxiety disorder F41.1 and Major depressive disorder, recurrent episode with anxious distress F33.9 [place] [address] [address] August, Fibromyalgia M79.7 [facility] [address] [address] Jul, Generalized anxiety disorder F41.1 and Major depressive disorder, recurrent episode with anxious distress F33.9 [place] [address] [address] Jul, Fibromyalgia M79.7 [facility] [address] [address] Jul, Generalized anxiety disorder F41.1 [place] [address] [address] May, [facility] [address] [address] May, Hypothyroid E03.[address] [address] May, Chronic kidney disease, 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 ; Hypothyroid E03.9 ; Restless leg G25.81 ; Fibromyalgia M79.7 ; Essential (primary) hypertension I10 ; Vitamin D deficiency E55.9 ; Dyspepsia R10.13 ; Acute non-recurrent maxillary sinusitis J01.00 ; Anemia in chronic kidney disease D63.1 ; Chronic kidney disease, unspecified N18.9 and Coronary artery disease involving atka coronary artery of atka heart, angina presence unspecified I25.10 [facility] [address] [address] May, Vitamin D deficiency, unspec ified E55.[address] [address] May, Generalized anxiety disorder F41.1 and Major depressive disorder, recurrent episode with anxious distress F33.[address] [address] Apr, Pain in right knee M25.561 a nd Pain in left knee M25.562 [facility] [address] [facility] [id number] [address] [place] [id number] Apr, [facility] [address] [facility] [id number] [address] [place] [id number] Apr, [facility] [address] [facility] [id number] [address] [place] [id number] Apr, [facility] [address] [facility] [id number] [address] [place] [phone] Mar, Generalized anxiety disorder F41.1 and Major depressive disorder, recurrent episode with anxious distress F33.9 [place] [address] [place] [id number] [address] [place] [id number] Mar, Generalized anxiety disorder F41.1 and Major depressive disorder, recurrent episode with anxious distress F33.9 [place] [address] [place] [id number] [address] [place] [id number] Mar, [facility] [address] [place] [id number] [address] [place] [phone] Mar, [place] [address] [place] [id number] [address] [place] [id number] Mar, [place] [address] [place] [id number] [address] [place] [address] Mar, Asthma J45.909 and Fibromyal elvira M79.7 [place] [address] [place] [id number] [address] [place] [id number] Mar, Chronic kidney disease, 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 ; Vitamin D deficiency E55.9 and Essential (primary) hypertension I10 [place] [address] [facility] [id number] [address] [place] [id number] Feb, [place] [address] [place] [id number] [address] [place] [id number] Feb, Dysuria R30.0 ; Mixed stress and urge urinary incontinence N39.46 ; Fibromyalgia M79.7 and Chronic kidney disease, stage IV (severe) N18.4 [facility] [address] [facility] [id number] [address] [place] [id number] Feb, Chronic kidney disease, 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 [facility] [address] [facility] [id number] [address] [place] [id number] Feb, Chronic kidney disease, 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 [facility] [address] [id number] [address] [place] [id number] Feb, [facility] [address] [facility] [id number] [address] [place] [id number] Feb, Vitamin D deficiency, unspec ified E55.9 [facility] [address] [facility] [id number] [address] [place] [id number] Jan, [facility] [address] [facility] [id number] [address] [place] [id number] Jan, [facility] [address] [facility] [id number] [address] [place] [id number] 30 Dec, 2015 [facility] [address] [facility] [id number] [address] [place] [id number] Dec, Chronic kidney disease, 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 [facility] [address] [facility] [id number] [address] [place] [id number] Dec, Dysthymic disorder F34.1 and Generalized anxiety disorder F41.1 [facility] [address] [facility] [id number] [address] [place] [phone] Dec, [facility] [address] [facility] [id number] [address] [place] [phone] Dec, [facility] [address] [facility] [id number] [address] [place] [phone] Dec, Dysthymic disorder F34.1 and Generalized anxiety disorder F41.1 [facility] [address] [address] 08 Dec, 2015 Dysuria R30.0 ; Chronic kidn ey disease, stage 4 (severe) N18.4 ; Hypertension I10 ; Dyspepsia R10.13 ; Yeast dermatitis B37.2 ; Palpitations R00.2 ; Hypothyroid E03.9 ; Functional diarrhea K59.1 and Other seasonal allergic rhinitis J30.2 [facility] [address] [id number] 04 Dec, 2015 [facility] [address] [address] 30 Nov, 2015 Dysuria R30.0 and Stress inc ontinence N39.3 [place] [address] [address] Nov, [place] [address] [address] Nov, [place] [address] [address] Nov, Osteoarthritis of knees, jose ateral M17.0 [place] [address] [address] Nov, Dysthymic disorder F34.1 and Generalized anxiety disorder F41.1 [place] [address] [address] Nov, [place] [address] [address] Nov, [place] [address] [address] Nov, Urgency of urination R39.15 [place] [address] [address] Nov, [place] [address] [address] Nov, Chronic kidney disease, 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 [place] [id number] [place] [id number] [place] [address] Oct, Hypertension I10 ; Coronary artery disease involving atka coronary artery of atka heart, angina presence unspecified I25.10 ; Palpitations R00.2 ; Hypothyroid E03.9 ; Right foot pain M79.671 ; Functional diarrhea K59.1 and Other seasonal allergic rhinitis J30.2 [facility] [address] [facility] [id number] [address] [place] [phone] Oct, Dysthymic disorder F34.1 and Generalized anxiety disorder F41.1 [place] [address] [place] [id number] [address] [place] [id number] Sep, [place] [address] [place] [id number] [address] [place] [id number] Sep, [place] [address] [place] [id number] [address] [place] [phone] Sep, [facility] [address] [place] [id number] [address] [place] [id number] Sep, [place] [address] [place] [id number] [address] [place] [phone] Sep, [place] [address] [place] [id number] [address] [place] [address] Sep, Dysthymic disorder F34.1 and Generalized anxiety disorder F41.1 [place] [address] [facility] [id number] [address] [place] [id number] 16 Sep, 2015 Asthma with acute exacerbati on in adult J45.901 ; Dysuria R30.0 ; Chronic kidney disease, stage 4 (severe) N18.4 and History of anemia Z86.2 [facility] [address] [place] [id number] [address] [place] [id number] 2015 Generalized anxiety disorder F41.1 and Dysthymic disorder F34.1 [place] [address] [place] [id number] [address] [place] [id number] August, Screening breast examination Z12.39 and Acute recurrent maxillary sinusitis J01.01 [place] [address] [place] [id number] [address] [place] [address] August, Osteoarthritis of knees, jose ateral M17.0 [place] [address] [address] August, Chronic kidney disease, 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 ; Acute non- recurrent maxillary sinusitis J01.00 ; Urinary problem R39.89 ; Bowel habit changes R19.4 ; Functional diarrhea K59.1 and History of colon polyps Z86.010 [place] [address] [place] [id number] [address] [place] [address] Jul, Dysthymic disorder F34.1 and Generalized anxiety disorder F41.1 [place] [address] [address] Jul, [place] [address] [address] Jul, Dysthymic disorder F34.1 ; G eneralized anxiety disorder F41.1 and halfway use of drug Z79.899 [place] [address] [place] [id number] [address] [place] [phone] Jul, [place] [id number] [place] [address] Jun, [place] [address] [place] [id number] [address] [place] [address] Jun, [place] [address] [address] May, [place] [address] [place] [id number] [address] [place] [id number] May, Dysthymic disorder F34.1 and Generalized anxiety disorder F41.1 [place] [address] [address] Apr, Kidney disease N28.9 [place] [address] [address] Apr, Generalized anxiety disorder F41.1 and Dysthymic disorder F34.1 [place] [address] [address] Apr, Chronic kidney disease, 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 [place] [address] [address] Apr, Generalized anxiety disorder F41.1 ; Major depression, recurrent F33.9 and Sleep disturbance G47.[address] [address] Mar, Generalized anxiety disorder F41.1 and Dysthymic disorder F34.1 [place] [address] [address] Mar, Generalized anxiety disorder F41.1 ; Dysthymic disorder F34.1 and Insomnia G47.[address] [address] Mar, [place] [address] [address] Mar, [address] [address] Mar, Osteoarthritis of knees, jose ateral M17.0 [place] [id number] [place] [address] Mar, Hypertension I10 ; Hypothyro id E03.9 ; Dysthymic disorder F34.1 ; Chronic kidney disease, stage 4 (severe) N18.4 and Nausea & vomiting R11.[address] [address] Mar, Generalized anxiety disorder F41.1 ; Dysthymic disorder F34.1 and Insomnia G47.00 [place] [address] [address] Mar, Dehydration E86.0 ; Chronic kidney disease, stage 4 (severe) N18.4 and Nausea & vomiting R11.2 [facility] [address] [address] Mar, Gastroenteritis K52.9 [facility] [address] [address] Mar, [place] [address] [address] Mar, [place] [address] [address] Feb, Dysthymic disorder F34.1 and Generalized anxiety disorder F41.1 [place] [address] [address] Jan, UTI (urinary tract infection ) N39.0 ; Asthma J45.909 ; Coronary artery disease involving atka coronary artery of atka heart, angina presence unspecified I25.10 ; Hypertension I10 ; Hypothyroid E03.9 ; Vitamin D deficiency E55.9 ; Insomnia G47.00 ; Palpitations R00.2 ; Depressed F32.9 ; Restless leg G25.81 and Anxiety F41.9 [place] [address] [address] Jan, Dysthymic disorder F34.1 and Generalized anxiety disorder F41.1 [place] [address] [address] Jan, [place] [address] [address] Dec, [place] [address] [address] Dec, Alkalosis 276.3 ; Chronic ki dney disease, Stage IV (severe) 585.4 ; Hyperpotassemia 276.7 ; Secondary hyperparathyroidism, renal 588.81 ; Proteinuria 791.0 ; Unspecified vitamin D deficiency 268.9 ; Anemia in chronic kidney disease 285.21 ; Other and unspecified hyperlipidemia 272.4 ; Hypertension, essential, benign 401.1 and Chronic kidney disease (CKD), stage III (moderate) 585.[address] [address] Dec, [address] [address] Dec, Depressive disorder, not els ewhere classified 311 and Generalized anxiety disorder 300.[address] [address] Dec, [address] [address] Dec, [address] [address] Nov, Depressive disorder, not els ewhere classified 311 and Generalized anxiety disorder 300.[address] [address] Nov, Arthritis of both knees 716. [address] [address] Nov, PAF (paroxysmal atrial fibri llation) 427.31 ; CAD (coronary artery disease) 414.00 ; Chest pain 786.50 and Chronic kidney disease (CKD) stage G4/A1, severely decreased glomerular filtration rate (GFR) between 15-29 mL/min/1.73 square meter and albuminuria creatinine ratio less than 30 mg/g 585.[address] [address] Oct, Coronary atherosclerosis of unspecified type of vessel, atka or graft 414.00 ; Chronic kidney disease, Stage IV (severe) 585.4 ; Hypertension 401.9 and Edema 782.3 [place] [address] [address] Oct, Depressive disorder, not els ewhere classified 311 and Generalized anxiety disorder 300.02 [place] [address] [address] Oct, Depressive disorder, not els ewhere classified 311 and Generalized anxiety disorder 300.02 [place] [address] [address] Oct, [place] [address] [address] Oct, [place] [address] [address] Sep, [place] [address] [address] Sep, Chronic kidney disease, Stag e IV (severe) 585.4 [place] [address] [address] Sep, [address] [address] Sep, Coronary atherosclerosis of unspecified type of vessel, atka or graft 414.00 ; Hypertension 401.9 ; Edema 782.3 and Hypothyroidism 244.[address] [address] Sep, Coronary atherosclerosis of unspecified type of vessel, atka or graft 414.00 ; Hypertension 401.9 ; Fibromyalgia 729.1 ; Edema 782.3 ; Hypothyroidism 244.9 and Anemia 285.9 [place] [address] [address] Sep, Anxiety disorder, unspecifie d 300.00 and Depressive disorder, not elsewhere classified 311 [place] [address] [address] Sep, [place] [address] [id number] [address] [place] [address] August, Generalized anxiety disorder 300.02 [facility] [address] [id number] [address] [place] [address] August, Closed fracture of lateral m alleolus 824.2 [facility] [address] [id number] [address] [place] [address] 14 Jul, 2014 [facility] [address] [id number] [address] [place] [address] Jul, [facility] [address] [id number] [address] [place] [address] Jun, [facility] [address] [id number] [address] [place] [address] Jun, [facility] [address] [id number] [address] [place] [phone] Jun, [facility] [address] [id number] [address] [place] [address] Jun, [facility] [address] [id number] [address] [place] [phone] Jun, [facility] [address] [id number] [address] [place] [address] Jun, [facility] [address] [id number] [address] [place] [address] May, [facility] [address] [id number] [address] [place] [address] May, [facility] [address] [id number] [address] [place] [address] May, [facility] [address] [id number] [address] [place] [phone] May, [facility] [address] [id number] [address] [place] [address] 16 May, 2014 [facility] [address] [id number] [address] [place] [address], [place] [address] 16 May, 2014 [facility] [address] [id number] [address] [place] [address], [place] [address] 13 May, 2014 [facility] [address] [id number] [address] [place] [address], [place] [address] 13 May, 2014 [facility] [address] [id number] [address] [place] [address], [place] [address] 10 May, 2014 [facility] [address] [id number] [address] [place] [address], [place] [address] May, 2014 [facility] [address] [id number] [address] [place] [address], [place] [address] Apr, [facility] [address] [id number] [address] [place] [address], [place] [address] Apr, [facility] [address] [id number] [address] [place] [address], [place] [address] Mar, [facility] [address] [id number] [address] [place] [address], [place] [address] Mar, [facility] [address] [id number] [address] [place] [address], [place] [address] Mar, [facility] [address] [id number] [address] [place] [address], [place] [address] 15 Mar, 2014 [facility] [address] [id number] [address] [place] [address], [place] [address] 15 Mar, 2014 [facility] [address] [id number] [address] [place] [address], [place] [address] Mar, [facility] [address] [id number] [address] [place] [address], [place] [address] Mar, [facility] [address] [id number] [address] [place] [address], [place] [address] 24 Feb, 2014 [facility] [address] [id number] [address] [place] [address], [place] [address] Feb, [facility] [address] [id number] [address] [place] [address], [place] [address] Feb, [facility] [address] [id number] [address] [place] [address], [place] [address] Jan, [facility] [address] [id number] [address] [place] [address], [place] [address] Jan, [facility] [address] [id number] [address] [place] [address], [place] [address] Jan, [facility] [address] [id number] [address] [place] [address], [place] [address] Jan, [facility] [address] [id number] [address] [place] [address], [place] [address] Jan, [facility] [address] [id number] [address] [place] [address], [place] [address] Jan, [facility] [address] [id number] [address] [place] [address], [place] [address] Jan, [facility] [address] [id number] [address] [place] [address], [place] [address] Jan, [facility] [address] [id number] [address] [place] [address], [place] [address] Jan, [facility] [address] [id number] [address] [place] [address], [place] [address] Jan, [facility] [address] [id number] [address] [place] [address], [place] [address] Nov, [facility] [address] [id number] [address] [place] [address], [place] [address] Nov, [facility] [facility] [address] [id number] [address] [place] [address], [place] [address] Nov, [facility] [address] [id number] [address] [place] [address], [place] [address] Oct, [facility] [address] [id number] [address] [address] 29 Oct, 2013 [facility] [address] [id number] [address] [address] Oct, [facility] [address] [id number] [address] [address] Oct, 2013 [facility] [address] [id number] [address] [address] Oct, 2013 [facility] [address] [id number] [address] [address] Oct, 2013 [facility] [address] [id number] [address] [place] [address], [place] [address] Oct, [facility] [address] [id number] [address] [place] [address], [place] [address] Oct, [facility] [address] [id number] [address] [place] [address], [place] [address] Oct, [facility] [address] [id number] [address] [place] [address], [place] [address] 30 Sep, 2013 [facility] [address] [id number] [address] [place] [address], [place] [address] Sep, [facility] [address] [id number] [address] [place] [address], [place] [address] 24 Sep, 2013 [facility] [address] [id number] [address] [place] [address], [place] [address] Sep, [facility] [address] [id number] [address] [place] [address], [place] [address] Sep, [facility] [address] [id number] [address] [place] [address], [place] [address] Sep, [facility] [address] [id number] [address] [place] [address], [place] [address] Sep, [facility] [address] [id number] [address] [place] [address], [place] [address] Sep, [facility] [address] [id number] [address] [address] Sep, [facility] [address] [id number] [address] [place] [address], [place] [address] August, [facility] [address] [id number] [address] [place] [address], [place] [address] August, [facility] [address] [id number] [address] [place] [address], [place] [address] August, [facility] [address] [id number] [address] [place] [address], [place] [address] August, [facility] [address] [id number] [address] [place] [address], [place] [address] August, [facility] [address] [id number] [address] [place] [address], [place] [address] August, [facility] [address] [id number] [address] [place] [address], [place] [address] Jul, [facility] [address] [id number] [address] [place] [address], [place] [address] Jul, [facility] [address] [id number] [address] [place] [address], [place] [address] Jul, [facility] [address] [id number] [address] [place] [address], [place] [address] Jul, [facility] [address] [id number] [address] [place] [address], [place] [address] Jul, [facility] [address] [id number] [address] [place] [address], [place] [address] Jul, [facility] [address] [id number] [address] [place] [address], [place] [address] Jun, [facility] [address] [id number] [address] [place] [address], [place] [address] Jun, [facility] [address] [id number] [address] [place] [address], [place] [address] 19 May, 2013 [facility] [address] [id number] [address] [place] [address], [place] [address] May, [facility] [address] [id number] [address] [place] [address], [place] [address] 10 May, 2013 [facility] [address] [id number] [address] [place] [address], [place] [address] May, [facility] [address] [id number] [address] [place] [address], [place] [address] Apr, [facility] [address] [id number] [address] [place] [address], [place] [address] Apr, [facility] [address] [id number] [address] [place] [address], [place] [address] 18 Mar, 2013 [facility] [address] [id number] [address] [place] [address], [place] [address] 18 Mar, 2013 [facility] [address] [id number] [address] [place] [address], [place] [address] 17 Mar, 2013 [facility] [address] [id number] [address] [place] [address], [place] [address] 17 Mar, 2013 [facility] [address] [id number] [address] [place] [address], [place] [address] 05 Mar, 2013 [facility] [address] [id number] [address] [place] [address], [place] [address] 05 Mar, 2013 [facility] [address] [id number] [address] [place] [address], [place] [address] 20 Feb, 2013 [facility] [address] [id number] [address] [place] [address], [place] [address] 20 Feb, 2013 [facility] [address] [id number] [address] [place] [address], [place] [address] 14 Feb, 2013 [facility] [address] [id number] [address] [place] [address], [place] [address] Feb, [facility] [address] [id number] [address] [place] [address], [place] [address] Feb, [facility] [address] [id number] [address] [place] [address], [place] [address] Feb, [facility] [address] [id number] [address] [place] [address], [place] [address] Jan, [facility] [address] [id number] [address] [place] [address], [place] [address] Jan, [facility] [address] [id number] [address] [place] [address], [place] [address] Jan, [facility] [address] [id number] [address] [place] [address], [place] [address] Jan, [facility] [address] [id number] [address] [place] [address], [place] [address] Jan, [facility] [address] [id number] [address] [place] [address], [place] [address] Jan, [facility] [address] [id number] [address] [place] [address], [place] [address] Dec, [facility] [address] [id number] [address] [place] [address] Dec, [facility] [address] [id number] [address] [place] [address] Nov, [facility] [address] [id number] [address] [place] [address] Nov, [facility] [address] [id number] [address] [place] [address], [place] [address] Oct, [facility] [address] [id number] [address] [place] [address], [place] [address] Oct, [facility] [address] [id number] [address] [place] [address] Oct, [facility] [address] [id number] [address] [place] [address] Oct, [facility] [address] [id number] [address] [place] [address], [place] [address] Oct, [facility] [address] [id number] [address] [place] [address], [place] [address] Oct, [facility] [address] [id number] [address] [place] [address], [place] [address] Sep, [facility] [address] [id number] [address] [place] [address], [place] [address] Sep, [facility] [address] [id number] [address] [place] [address], [place] [address] Sep, [facility] [address] [id number] [address] [place] [address], [place] [address] Sep, [facility] [address] [id number] [address] [place] [address], [place] [address] August, [facility] [address] [id number] [address] [place] [address], [place] [address] August, [facility] [address] [id number] [address] [place] [address], [place] [address] August, [facility] [address] [id number] [address] [place] [address], [place] [address] August, [facility] [address] [id number] [address] [place] [address], [place] [address] August, [facility] [address] [id number] [address] [place] [address], [place] [address] Jul, [facility] [address] [id number] [address] [place] [address], [place] [address] 18 Jul, 2012 [facility] [address] [id number] [address] [place] [address], [place] [address] 15 Jul, 2012 [facility] [address] [id number] [address] [place] [address], [place] [address] Jul, [facility] [address] [id number] [address] [place] [address], [place] [address] Jul, [facility] [address] [id number] [address] [place] [address], [place] [address] Jul, [facility] [address] [id number] [address] [place] [address], [place] [address] Jul, [facility] [address] [id number] [address] [place] [address], [place] [address] Jul, [facility] [address] [id number] [address] [place] [address], [place] [address] Jul, [facility] [address] [id number] [address] [place] [address], [place] [address] Jul, [facility] [address] [id number] [place] [id number] Jun, [facility] [address] [id number] [address] [place] [address], [place] [address] Jun, [facility] [address] [id number] [address] [place] [address], [place] [address] Jun, [facility] [address] [id number] [address] [place] [address], [place] [address] Jun, [facility] [address] [id number] [address] [place] [address], [place] [address] Jun, [facility] [address] [id number] [address] [place] [address], [place] [address] May, [facility] [address] [id number] [address] [place] [address], [place] [address] May, [facility] [address] [id number] [address] [place] [address], [place] [address] May, [facility] [address] [id number] [address] [place] [address], [place] [address] Apr, [facility] [address] [id number] [address] [place] [address], [place] [address] Apr, [facility] [address] [id number] [address] [place] [address], [place] [address] Apr, [facility] [address] [id number] [address] [place] [address], [place] [address] Apr, [facility] [address] [id number] [address] [place] [address], [place] [address] Apr, [facility] [address] [id number] [address] [place] [address], [place] [address] Apr, [facility] [address] [id number] [address] [place] [address], [place] [address] Mar, [facility] [address] [id number] [address] [place] [address], [place] [address] Mar, [facility] [address] [id number] [address] [place] [address], [place] [address] Mar, [facility] [address] [id number] [address] [place] [address], [place] [address] Mar, [facility] [address] [id number] [address] [place] [address], [place] [address] Feb, [facility] [address] [id number] [address] [place] [address], [place] [address] Feb, [facility] [address] [id number] [address] [place] [address], [place] [address] Feb, [facility] [address] [id number] [address] [place] [address], [place] [address] Feb, [facility] [address] [id number] [address] [place] [address], [place] [address] Feb, [facility] [address] [id number] [address] [place] [address], [place] [address] Feb, [facility] [address] [id number] [address] [place] [address], [place] [address] Feb, [facility] [address] [id number] [address] [place] [address], [place] [address] Feb, [facility] [address] [id number] [address] [place] [address], [place] [address] Feb, [facility] [address] [id number] [address] [place] [address], [place] [address] Feb, [facility] [address] [id number] [address] [place] [address], [place] [address] Feb, [facility] [address] [id number] [address] [place] [address], [place] [address] Feb, [facility] [address] [id number] [address] [place] [address], [place] [address] Feb, [facility] [address] [id number] [address] [place] [address], [place] [address] Feb, [facility] [address] [id number] [address] [place] [address], [place] [address] Feb, [facility] [address] [id number] [address] [place] [address], [place] [address] Feb, [facility] [address] [id number] [address] [place] [address], [place] [address] Jan, [facility] [address] [id number] [address] [place] [address], [place] [address] Jan, [facility] [address] [id number] [address] [place] [address], [place] [address] Jan, [facility] [address] [id number] [address] [place] [address] Jan, [facility] [address] [id number] [address] [place] [address], [place] [address] 30 Jan, 2012 [facility] [address] [id number] [address] [place] [address], [place] [address] Jan, [facility] [address] [id number] [address] [place] [address] Jan, [facility] [address] [id number] [address] [place] [address], [place] [address] 16 Jan, 2012 [facility] [address] [id number] [address] [place] [address], [place] [address] 16 Jan, 2012 [facility] [address] [id number] [address] [place] [address], [place] [address] 15 Jan, 2012 [facility] [address] [id number] [address] [place] [address], [place] [address] 15 Jan, 2012 [facility] [address] [id number] [address] [place] [address], [place] [address] 01 Jan, 2012 [facility] [address] [id number] [address] [place] [address], [place] [address] 26 Sep, 2011 [facility] [address] [id number] [address] [place] [address], [place] [address] 26 Sep, 2011 [facility] [address] [id number] [address] [place] [address], [place] [address] 24 Sep, 2011 [facility] [address] [id number] [address] [place] [address], [place] [address] 23 Sep, 2011 [facility] [address] [id number] [address] [place] [address], [place] [address] 22 Sep, 2011 [facility] [address] [id number] [address] [place] [address], [place] [address] 21 Sep, 2011 [facility] [address] [id number] [address] [place] [address], [place] [address] 20 Sep, 2011 [facility] [address] [id number] [address] [place] [address], [place] [address] 20 Sep, 2011 [facility] [address] [id number] [address] [place] [address], [place] [address] 07 Sep, 2011 [facility] [address] [id number] [address] [place] [address], [place] [address] 06 Sep, 2011 [facility] [address] [id number] [address] [place] [address], [place] [address] 06 Dec, 2011 [facility] [address] [id number] [address] [place] [address], [place] [address] 05 Dec, 2011 [facility] [address] [id number] [address] [place] [address], [place] [address] Nov, [facility] [address] [id number] [address] [place] [address], [place] [address] Nov, [facility] [address] [id number] [address] [place] [address], [place] [address] Nov, [facility] [address] [id number] [address] [place] [address], [place] [address] Nov, [facility] [address] [id number] [address] [place] [address], [place] [address] Nov, [facility] [address] [id number] [address] [place] [address], [place] [address] Nov, [facility] [address] [id number] [address] [place] [address], [place] [address] Nov, [facility] [address] [id number] [address] [place] [address], [place] [address] Nov, [facility] [address] [id number] [address] [place] [address], [place] [address] Oct, [facility] [address] [id number] [address] [place] [address], [place] [address] Oct, [facility] [address] [id number] [address] [place] [address], [place] [address] Oct, [facility] [address] [id number] [address] [place] [address], [place] [address] Oct, [facility] [address] [id number] [address] [place] [address], [place] [address] Oct, [facility] [address] [id number] [address] [place] [address], [place] [address] Oct, [facility] [address] [id number] [address] [place] [address], [place] [address] Oct, [facility] [address] [id number] [address] [place] [address], [place] [address] Sep, [facility] [address] [id number] [address] [place] [address], [place] [address] Sep, [facility] [address] [id number] [address] [place] [address], [place] [address] August, [facility] [address] [id number] [address] [place] [address], [place] [address] August, [facility] [address] [id number] [address] [place] [address], [place] [address] August, [facility] [address] [id number] [address] [place] [address], [place] [address] August, [facility] [address] [id number] [address] [place] [address], [place] [address] Jul, [facility] [address] [id number] [address] [place] [address], [place] [address] Jul, [facility] [address] [id number] [address] [place] [address], [place] [address] Jul, [facility] [address] [id number] [address] [place] [address], [place] [address] Jul, [facility] [address] [id number] [address] [place] [address], [place] [address] Jul, [facility] [address] [id number] [address] [place] [address], [place] [address] Jul, [facility] [address] [id number] [address] [place] [address], [place] [address] Jul, [facility] [address] [id number] [address] [place] [address], [place] [address] Jul, [facility] [address] [id number] [address] [place] [address], [place] [address] Jul, [facility] [address] [id number] [address] [place] [address], [place] [address] 23 Jun, 2011 [facility] [address] [id number] [address] [place] [address], [place] [address] 19 Jun, 2011 [facility] [address] [id number] [address] [place] [address], [place] [address] 15 Jun, 2011 [facility] [address] [id number] [address] [place] [address], [place] [address] 14 Jun, 2011 [facility] [address] [id number] [address] [place] [address], [place] [address] 12 Jun, 2011 [facility] [address] [id number] [address] [place] [address], [place] [address] 09 Jun, 2011 [facility] [address] [id number] [address] [place] [address], [place] [address] Jun, [facility] [address] [id number] [address] [place] [address], [place] [address] 25 May, 2011 [facility] [address] [id number] [address] [place] [address], [place] [address] 24 May, 2011 [facility] [address] [id number] [address] [place] [address], [place] [address] 16 May, 2011 [facility] [address] [id number] [address] [place] [address], [place] [address] 16 May, 2011 [facility] [address] [id number] [address] [place] [address], [place] [address] May, [facility] [address] [id number] [address] [place] [address], [place] [address] Apr, [facility] [address] [id number] [address] [place] [address], [place] [address] Apr, [facility] [address] [id number] [address] [place] [address], [place] [address] Apr, [facility] [address] [id number] [address] [place] [address], [place] [address] Apr, [facility] [address] [id number] [address] [place] [address], [place] [address] Apr, [facility] [address] [id number] [address] [place] [address], [place] [address] Mar, [facility] [address] [id number] [address] [place] [address], [place] [address] Mar, [facility] [address] [id number] [address] [place] [address], [place] [address] Mar, [facility] [address] [id number] [address] [place] [address], [place] [address] Mar, [facility] [address] [id number] [address] [place] [address], [place] [address] Mar, [facility] [address] [id number] [address] [place] [address], [place] [address] Mar, [facility] [address] [id number] [address] [place] [address], [place] [address] Mar, [facility] [address] [id number] [address] [place] [address], [place] [address] Feb, [facility] [address] [id number] [address] [place] [address], [place] [address] Feb, [facility] [address] [id number] [address] [place] [address], [place] [address] Feb, [facility] [address] [id number] [address] [place] [address], [place] [address] Feb, [facility] [address] [address] [id number] [address] [place] [address], [place] [phone] Jan, [facility] [address] [id number] [address] [place] [address], [place] [phone] Jan, [facility] [address] [id number] [address] [place] [phone] Jan, [facility] [address] [id number] [address] [place] [phone] Jan, [facility] [address] [id number] [address] [place] [id number] Nov, [facility] [address] [id number] [address] [place] [phone] Mar, [facility] [address] [id number] [address] [place] [phone] Mar, [facility] [address] [id number] [address] [place] [phone] Mar, [facility] [address] [id number] [address] [place] [phone] Mar, [facility] [address] [id number] [address] [place] [id number] Mar, [facility] [address] [id number] [address] [place] [phone] Mar, [facility] [address] [id number] [address] [place] [phone] Feb, [facility] [address] [id number] [address] [place] [phone] Feb, [facility] [address] [id number] [address] [place] [phone] Jan, [facility] [address] [id number] [address] [place] [phone] Jan, [facility] [address] [id number] [address] [place] [phone] Jan, IMMUNIZATIONS No Known Immunizations SOCIAL HISTORY Never Assessed REASON FOR VISIT PLAN OF CARE VITAL SIGNS Height 63 in 2013-11-11 Weight 275.1 lbs 2013-11-11 Temperature 97.2 degrees Fahrenheit 2013-11-11 Heart Rate 76 bpm 2013-11-11 Respiratory Rate 18 2013-11-11 Blood pressure systolic 126 mmHg 2013-11-11 Blood pressure diastolic 72 mmHg 2013-11-11 MEDICATIONS Unknown Medications RESULTS No Results PROCEDURES [...] History CPAP Noncompliance_ Dr. Madden advises a Mar[employer] driving. Medical History Bacterial meningitis 12/2016 Medical [...] 09-2015 & 2007 Surgical History Bladder surgery [facility] 03/2016 Surgical History Neurotransmitter placed 10/2017 Surgical History retninal repair 12/31/2017 Surgical History cataract surgery 2018 Surgical History cataract surgery 2019 Surgical History SCS trial x7 days 2018 Surgical History SCS implant removed. 2019 Hospitalization History Surgeries Only Hospitalization History bacterial meningitis December 2016 Hospitalization History [facility] psych for SI 1988 Hospitalization History [facility]-Altered mental status 05/2017 Hospitalization History sepsis, UTI, headache 08/03/2018-
--- OUTSIDE RECORDS SUMMARY | 2019-08-01 10:10 | XMS REPORT ---
Author Author Lola Tyson Doctor Organization [facility] Address Unknown Phone Unavailable Care Team Providers Care Instructor Knitting Name Role Phone Migration, Doctor Unavailable Unavailable PROBLEMS ALLERGIES No Information ENCOUNTERS IMMUNIZATIONS No Known Immunizations SOCIAL HISTORY No smoking Hx information available REASON FOR VISIT PLAN OF CARE VITAL SIGNS MEDICATIONS Unknown Medications RESULTS No Results PROCEDURES No Known procedures INSTRUCTIONS MEDICATIONS ADMINISTERED No Known Medications MEDICAL (GENERAL) HISTORY
--- OUTSIDE RECORDS SUMMARY | 2019-08-01 10:11 | XMS REPORT ---
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 Active 90666630 Problem Chronic kidney disease, stage 4 (severe) N18.4 Active 630510920 Problem Degenerative tear of medial meniscus of left knee M23.204 Active 003736170 Problem Dysthymic disorder F34.1 Active 7 4190411 Problem Primary osteoarthritis of left knee M17.12 Active 894878379 Problem Generalized anxiety disorder F41.1 A ctive 72708732 Problem Restless leg G25.81 Active 6864167 8 Problem Coronary artery disease invo lving [place] coronary artery of [place] heart, angina presence unspecified I25.10 Active 8815691475213 Problem Hypokalemia E87.6 Active 97183146 Problem Other seasonal allergic rhinitis J30.2 Active 433854316 Problem Mixed stress and urge urinary incontinence N39.46 Active 097880141 Problem Fibromyalgia M79.7 Active 2269286 05 Problem Essential (primary) hypertension I10 Active 05881437 Problem Long-term use of high-risk medication Z79.899 Active 798446808 Problem Vitamin D deficiency E55.9 Active 43672393 Problem Anemia in chronic kidney disease D63.1 Active 238100245703411 Problem Low back pain M54.5 Active 901210 009 Problem Chronic kidney disease, unspecified N18.9 Active 991405389 Problem Abnormal chest CT R93.8 Active 44 0714173 Problem Mood disorder F39 Active 222172 05 Problem Stage 3 chronic kidney disease N18.3 Active 863191261 Problem Body mass index (BMI) of 40.0-44.9 in adult Z68.41 Active 308570712 Problem Other chronic pain G89.29 Active 8 8702507 Problem Asthma with acute exacerbation in adult J45.901 Active 102116200 Problem Major depressive disorder, recurrent, moderate F33 .1 Active 510908245 Problem History of colon polyps Z86.010 Active 541116038 Problem History of anemia Z86.2 Active 27 8782326 Problem Seasonal allergic rhinitis due to pollen J30.1 Active 66734659 Problem Restless leg syndrome G25.81 Active 92778991 Problem Chronic pain syndrome G89.4 Active 630170787 Problem Perimenopausal vasomotor symptoms N95.1 Active 578146924 ALLERGIES No Information ENCOUNTERS Encounter Location Date Diagnosis [facility] [address] [facility] [place] [facility] [id number] [address] [place] [address] Dec, [facility] [address] [facility] [place] [id number] [address] [place] [address] Nov, [facility] [address] [place] [id number] [address] [place] [address] Nov, [facility] [address] [facility] [place] [id number] [address] [place] [address] Nov, Restless leg syndrome G25.81 [facility] [address] [place] [id number] [address] [place] [address] Nov, Pain in right shoulder M25.5 11 ; Restless leg syndrome G25.81 ; Other chronic pain G89.29 ; Screening for breast cancer Z12.39 ; Insomnia G47.00 and Morbid obesity E66.01 [facility] [address] [facility] [place] [id number] [address] [place] [address] Nov, [facility] [address] [facility] [place] [id number] [address] [place] [phone] Oct, Major depressive disorder, r ecurrent, moderate F33.1 ; Generalized anxiety disorder F41.1 and Dysthymic disorder F34.1 [facility] [address] [facility] [place] [id number] [address] [place] [address] Oct, [facility] [address] [id number] [address] [place] [phone] Oct, Cellulitis of left lower ext remity L03.116 and Morbid obesity E66.01 [facility] [address] [id number] [address] [place] [phone] Oct, [facility] [address] [id number] [address] [place] [phone] Oct, [facility] [address] [id number] [address] [place] [address] Oct, Generalized anxiety disorder F41.1 and Major depressive disorder, recurrent episode with anxious distress F33.9 [facility] [address] [id number] [address] [place] [phone] Oct, [facility] [address] [id number] [address] [place] [address] Oct, Chronic pain syndrome G89.4 [facility] [address] [id number] [address] [place] [address] Oct, Chronic pain syndrome G89.4 [facility] [address] [id number] [address] [place] [phone] Oct, UTI symptoms R39.9 ; Acute c ystitis without hematuria N30.00 and Morbid obesity E66.01 [facility] [address] [id number] [address] [place] [address] Oct, [facility] [address] [id number] [address] [place] [phone] Oct, Chronic pain syndrome G89.4 [facility] [address] [id number] [address] [place] [phone] Sep, [facility] [address] [id number] [address] [place] [phone] Sep, Generalized anxiety disorder F41.1 and Major depressive disorder, recurrent episode with anxious distress F33.9 [facility] [address] [facility] [place] [id number] [address] [place] [phone] 17 Sep, 2018 Chronic kidney disease, 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 [facility] [address] [facility] [place] [id number] [address] [place] [address] Sep, Fibromyalgia M79.7 and Chron ic pain syndrome G89.4 [facility] [address] [facility] [place] [id number] [address] [place] [address] Sep, [address] [address] Sep, Chronic pain syndrome G89.4 [facility] [address] [facility] [place] [id number] [address] [place] [address] Sep, [place] [address] [facility] [place] [id number] [address] [place] [address] Sep, Chronic pain syndrome G89.4 ; Fibromyalgia M79.7 and Morbid obesity E66.01 [place] [address] [place] [id number] [address] [place] [address] August, Generalized anxiety disorder F41.1 and Major depressive disorder, recurrent episode with anxious distress F33.9 [place] [address] [facility] [place] [id number] [address] [place] [address] August, Fibromyalgia M79.7 [facility] [address] [place] [id number] [address] [place] [address] August, Restless leg syndrome G25.81 ; Vitamin D deficiency E55.9 ; Urinary tract infection without hematuria, site unspecified N39.0 ; Pain in right shoulder M25.511 ; Other chronic pain G89.29 ; Biceps tendinitis on right M75.21 and Morbid obesity E66.01 [place] [address] [facility] [place] [id number] [address] [place] [address] Jul, Urinary tract infection with out hematuria, site unspecified N39.0 and Morbid obesity E66.01 [place] [address] [place] [id number] [address] [place] [address] Jul, [facility] [address] [facility] [place] [id number] [address] [place] [address] Jul, [facility] [address] [facility] [place] [id number] [address] [place] [address] Jul, Fibromyalgia M79.7 [facility] [address] [facility] [place] [id number] [address] [place] [address] Jul, Acute pain of right shoulder M25.511 [facility] [address] [facility] [place] [id number] [address] [place] [address] Jul, Acute pain of right shoulder M25.511 and Morbid obesity E66.01 [facility] [address] [facility] [place] [id number] [address] [place] [address] Jun, [place] [address] [place] [id number] [place] [phone] Jun, Generalized anxiety disorder F41.1 and Major depressive disorder, recurrent episode with anxious distress F33.9 [facility] [address] [facility] [place] [id number] [address] [place] [address] Jun, [place] [address] [place] [id number] [place] [address] Jun, Fibromyalgia M79.7 [facility] [address] [facility] [place] [id number] [address] [place] [address] Jun, Acute pain of right shoulder M25.511 ; Acute pain of right hip M25.551 and Morbid obesity E66.01 [facility] [address] [facility] [place] [id number] [address] [place] [address] May, Burning with urination R30.0 ; Vaginal discharge N89.8 ; Chronic kidney disease, stage 4 (severe) N18.4 ; Body mass index (BMI) of 40.0-44.9 in adult Z68.41 and Morbid obesity E66.01 [facility] [address] [facility] [place] [id number] [address] [place] [address] May, Fibromyalgia M79.7 [facility] [address] [id number] [address] [place] [address] May, Generalized anxiety disorder F41.1 and Major depressive disorder, recurrent episode with anxious distress F33.9 [facility] [address] [id number] [address] [place] [phone] Apr, [facility] [address] [facility] [place] [id number] [address] [place] [address] Apr, Fibromyalgia M79.7 [facility] [address] [id number] [address] [place] [phone] Mar, Acute UTI N39.0 and Dysuria R30.0 [facility] [address] [id number] [address] [place] [phone] 10 Mar, 2018 Fibromyalgia M79.7 [facility] [address] [facility] [place] [id number] [address] [place] [address] 15 Feb, 2018 [facility] [address] [id number] [address] [place] [address] Feb, [facility] [address] [facility] [place] [id number] [address] [place] [phone] Feb, [facility] [address] [facility] [place] [id number] [address] [place] [address] Feb, Fibromyalgia M79.7 [facility] [address] [facility] [place] [id number] [address] [place] [address] Feb, Complicated UTI (urinary tra ct infection) N39.0 [facility] [address] [id number] [address] [place] [address] Feb, [facility] [address] [facility] [place] [id number] [address] [place] [phone] Jan, Generalized anxiety disorder F41.1 and Major depressive disorder, recurrent episode with anxious distress F33.9 [facility] [address] [facility] [place] [id number] [address] [place] [address] Jan, Acute conjunctivitis of left eye, unspecified acute conjunctivitis type H10.32 [facility] [address] [id number] [address] [place] [address] Jan, [facility] [address] [facility] [place] [id number] [address] [place] [address] Jan, Acute non-recurrent maxillar y sinusitis J01.00 ; Dysuria R30.0 ; Perimenopausal vasomotor symptoms N95.1 and Fibromyalgia M79.7 [facility] [address] [id number] [address] [place] [address] Dec, Vitamin D deficiency E55.9 [facility] [address] [id number] [address] [place] [phone] Dec, Vitamin D deficiency E55.9 [facility] [address] [facility] [place] [id number] [address] [place] [address] Dec, Vitamin D deficiency E55.9 [facility] [address] [facility] [place] [id number] [address] [place] [address] Dec, [facility] [address] [facility] [place] [id number] [address] [place] [address] Dec, Fibromyalgia M79.7 [facility] [address] [facility] [place] [id number] [address] [place] [phone] Nov, [facility] [address] [facility] [place] [id number] [address] [place] [phone] Nov, [facility] [address] [facility] [place] [id number] [address] [place] [address] Nov, [facility] [address] [facility] [place] [id number] [address] [place] [address] Nov, Fibromyalgia M79.7 ; Vision changes H53.9 ; Chest wall pain R07.89 and Chronic pain syndrome G89.4 [facility] [address] [facility] [place] [id number] [address] [place] [address] Nov, [facility] [address] [id number] [address] [place] [address] Nov, Rash of hands R21 [facility] [address] [id number] [address] [place] [phone] Nov, Generalized anxiety disorder F41.1 and Major depressive disorder, recurrent episode with anxious distress F33.9 [place] [address] [id number] [address] [place] [phone] Nov, Fibromyalgia M79.7 [place] [address] [id number] [address] [place] [address] Nov, Complicated UTI (urinary tra ct infection) N39.0 [place] [address] [id number] [address] [place] [phone] Oct, [place] [address] [id number] [address] [place] [phone] Oct, Generalized anxiety disorder F41.1 and Major depressive disorder, recurrent episode with anxious distress F33.9 [place] [address] [id number] [address] [place] [address] Oct, [place] [address] [id number] [address] [place] [address] Oct, Fibromyalgia M79.7 [place] [address] [facility] [place] [id number] [address] [place] [address] Sep, Restless leg syndrome G25.81 and Restless leg G25.81 [place] [address] [id number] [address] [place] [address] Sep, [place] [address] [id number] [address] [place] [address] Sep, Seasonal allergic rhinitis d ue to pollen J30.1 ; Screening for breast cancer Z12.31 ; Chest pain at rest R07.9 ; Restless leg syndrome G25.81 ; Essential (primary) hypertension I10 and Depressed F32.9 [place] [address] [id number] [address] [place] [address] August, Fibromyalgia M79.7 [facility] [address] [facility] [place] [id number] [address] [place] [address] August, [facility] [address] [facility] [place] [id number] [address] [place] [address] August, [facility] [address] [facility] [place] [id number] [address] [place] [address] August, Abnormal chest CT R93.8 [facility] [address] [facility] [place] [id number] [address] [place] [address] August, Generalized anxiety disorder F41.1 and Major depressive disorder, recurrent episode with anxious distress F33.9 [facility] [address] [facility] [place] [id number] [address] [place] [address] August, Abnormal chest CT R93.8 [facility] [address] [facility] [place] [id number] [address] [place] [address] Jul, [facility] [address] [facility] [place] [id number] [address] [place] [address] Jul, Chronic kidney disease, 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 [facility] [address] [facility] [place] [id number] [address] [place] [address] Jul, [facility] [address] [facility] [place] [id number] [address] [place] [address] Jul, Restless leg G25.81 ; Mixed stress and urge urinary incontinence N39.46 and Fibromyalgia M79.7 [facility] [address] [facility] [place] [id number] [address] [place] [address] Jul, Chronic kidney disease, 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 [facility] [address] [facility] [place] [id number] [address] [place] [phone] Jun, Orthostatic hypotension I95. 1 ; Chronic kidney disease, stage 4 (severe) N18.4 ; Chest wall discomfort R07.89 and Body mass index (BMI) of 40.0- 44.9 in adult Z68.41 [facility] [address] [facility] [place] [id number] [address] [place] [address] Jun, [facility] [address] [place] [id number] [address] [place] [address] Jun, Orthostatic hypotension I95. 1 [facility] [address] [place] [id number] [place] [address] Jun, [facility] [address] [facility] [place] [id number] [place] [phone] Jun, Orthostatic hypotension I95. 1 ; Dysuria R30.0 and Acute cystitis without hematuria N30.00 [facility] [address] [place] [id number] [address] [place] [address] Jun, [facility] [address] [address] Jun, Chronic kidney disease, 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 [facility] [address] [place] [id number] [place] [address] Jun, Fibromyalgia M79.7 [facility] [address] [place] [id number] [place] [address] Jun, [facility] [address] [address] Jun, [facility] [address] [place] [id number] [place] [address] May, Abnormal chest CT R93.8 and Stage 3 chronic kidney disease N18.3 [facility] [address] [place] [id number] [address] [place] [address] May, Chronic kidney disease, 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 [facility] [address] [place] [id number] [address] [place] [address] May, Chronic kidney disease, 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 [facility] [address] [id number] [address] [place] [address] May, Abnormal chest [address] R93.8 [facility] [address] [id number] [address] [place] [phone] May, [facility] [address] [facility] [place] [id number] [address] [place] [address] May, [facility] [address] [id number] [address] [place] [address] May, Generalized anxiety disorder F41.1 and Major depressive disorder, recurrent episode with anxious distress F33.9 [place] [address] [id number] [address] [place] [address] May, Mood disorder F39 [place] [address] [facility] [place] [id number] [address] [place] [address] Apr, [place] [address] [facility] [place] [id number] [address] [place] [address] Apr, Infected skin lesion L08.9 a nd Muscle strain of right shoulder region, initial encounter S46.911A [place] [address] [facility] [place] [id number] [address] [place] [address] Apr, Generalized anxiety disorder F41.1 and Major depressive disorder, recurrent episode with anxious distress F33.9 [place] [address] [facility] [place] [id number] [address] [place] [address] Apr, [facility] [address] [facility] [place] [id number] [address] [place] [address] Apr, Recent urinary tract infecti on Z87.440 and Hypothyroid E03.9 [place] [address] [id number] [address] [place] [address] Apr, Generalized anxiety disorder F41.1 and Major depressive disorder, recurrent episode with anxious distress F33.9 [place] [address] [facility] [place] [id number] [address] [place] [address] Apr, Recent urinary tract infecti on Z87.440 [facility] [address] [facility] [place] [id number] [address] [place] [address] Mar, [facility] [address] [facility] [place] [id number] [address] [place] [address] Mar, Dysuria R30.0 ; Acute cystit is without hematuria N30.00 and BMI 40.0-44.9, adult Z68.41 [facility] [address] [facility] [place] [id number] [address] [place] [phone] 14 Mar, 2017 [facility] [address] [facility] [place]] [id number] [address] [place] [id number] Mar, [place] [address] [place] [id number] [address] [place] [phone] Mar, Generalized anxiety disorder F41.1 and Major depressive disorder, recurrent episode with anxious distress F33.9 [place] [address] [facility] [place] [id number] [address] [place] [phone] Feb, Conjunctivitis, bacterial H1 0.9 [place] [address] [address] [facility] [place] [id number] [address] [place] [id number] Feb, [facility] [place] [id number] [facility] [place] [id number] [address] [place] [phone] 15 Feb, 2017 Conjunctivitis, bacterial H1 0.9 [place] [address] [address] [facility] [place] [id number] [address] [place] [phone] 15 Feb, 2017 [facility] [address] [facility] [place] [id number] [address] [place] [address] 10 Feb, 2017 Dysuria R30.0 ; Acute cystit is N30.00 and BMI 40.0-44.9, adult Z68.41 [facility] [address] [facility] [place] [id number] [address] [place] [address] 08 Feb, 2017 [place] [address] [address] [facility] [place] [id number] [address] [place] [address] Feb, Generalized anxiety disorder F41.1 and Major depressive disorder, recurrent episode with anxious distress F33.9 [place] [address] N [facility] [place] [id number] [address] [place] [address] Feb, Mood disorder F39 and BMI 40 .0-44.9, adult Z68.41 [facility] [address] [place] [id number] [address] [place] [address] Jan, [place] [address] [place] [id number] [place] [phone] Jan, [place] [address] [place] [id number] [place] [address] Jan, Hypothyroid E03.9 [place] [address] [place] [id number] [place] [address] Jan, [place] [address] [address] Jan, Chronic kidney disease, unsp ecified N18.9 ; Hypokalemia E87.6 ; Essential (primary) hypertension I10 ; Fibromyalgia M79.7 ; Coronary artery disease involving [place] coronary artery of [place] heart, angina presence unspecified I25.10 ; Hypothyroid E03.9 and Encounter for immunization Z23 [place] [address] [place] [id number] [address] [place] [address] Jan, Hypothyroid E03.9 [place] [address] [place] [id number] [address] [place] [address] Jan, [place] [address] [place] [id number] [address] [place] [address] Dec, Vitamin D deficiency E55.9 [place] [address] [place] [id number] [address] [place] [address] Dec, Primary osteoarthritis of le ft knee M17.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 [place] [address] [place] [id number] [address] [place] [address] 19 Sep, 2017 Fibromyalgia M79.7 [facility] [address] [id number] [address] [place] [address] 18 Sep, 2017 Mood disorder F39 [facility] [address] [id number] [address] [place] [address] 13 Dec, 2016 [facility] [address] [id number] [address] [place] [phone] 13 Dec, 2016 Generalized anxiety disorder F41.1 and Major depressive disorder, recurrent episode with anxious distress F33.9 [facility] [address] [id number] [address] [place] [address] 11 Dec, 2016 [facility] [address] [id number] [address] [place] [address] 08 Dec, 2016 Streptococcal meningitis G00 .2 [facility] [address] [id number] [address] [place] [id number] 07 Dec, 2016 Streptococcal meningitis G00 .2 [facility] [address] [id number] [address] [place] [id number] 07 Dec, 2016 [facility] [address] [id number] [address] [place] [address] 06 Dec, 2016 Streptococcal meningitis G00 .2 [facility] [address] [id number] [address] [place] [phone] 06 Dec, 2016 [facility] [address] [id number] [address] [place] [id number] 06 Dec, 2016 Major depressive disorder, r ecurrent episode with anxious distress F33.9 [facility] [address] [id number] [address] [place] [phone] 29 Nov, 2016 Fever, unspecified fever cau se R50.9 [facility] [address] [id number] [address] [place] [phone] 24 Nov, 2016 [facility] [address] [id number] [address] [place] [id number] 16 Nov, 2016 Hypothyroid E03.9 [facility] [address] [id number] [address] [place] [phone] Nov, Generalized anxiety disorder F41.1 and Major depressive disorder, recurrent episode with anxious distress F33.9 [facility] [address] [id number] [address] [place] [address] Nov, [facility] [address] [id number] [address] [place] [id number] Oct, Dental examination Z01.20 [facility] [address] [id number] [address] [place] [phone] Oct, Generalized anxiety disorder F41.1 and Major depressive disorder, recurrent episode with anxious distress F33.9 [facility] [address] [facility] [place] [id number] [address] [place] [address] Oct, Chronic kidney disease, 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 [facility] [address] [facility] [place] [id number] [address] [place] [phone] Oct, [facility] [address] [facility] [place] [id number] [address] [place] [address] Oct, Fibromyalgia M79.7 [facility] [address] [facility] [place] [facility] [id number] [address] [place] [id number] Oct, [facility] [address] [facility] [place] [facility] [id number] [address] [place] [address] Oct, Generalized anxiety disorder F41.1 ; Major depressive disorder, recurrent episode with anxious distress F33.9 and Bipolar disorder, current episode manic without psychotic features F31.10 [facility] [address] [id number] [address] [place] [phone] Sep, [facility] [address] [facility] [place] [facility] [id number] [address] [place] [address] Sep, [facility] [address] [facility] [place] [facility] [id number] [address] [place] [address] Sep, Vitamin D deficiency E55.9 [place] [address] [facility] [place] [id number] [address] [place] [address] 14 Sep, 2016 Vitamin D deficiency E55.9 [place] [address] [facility] [place] [id number] [address] [place] [phone] Sep, [place] [address] [facility] [place] [facility] [id number] [address] [place] [address] Sep, Chronic kidney disease, 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 ; Hypothyroid E03.9 ; Restless leg G25.81 ; Fibromyalgia M79.7 ; Essential (primary) hypertension I10 ; Vitamin D deficiency E55.9 ; Dyspepsia R10.13 ; Anemia in chronic kidney disease D63.1 ; Chronic kidney disease, unspecified N18.9 ; Coronary artery disease involving [place] coronary artery of [place] heart, angina presence unspecified I25.10 ; Screening breast examination Z12.39 and Low back pain M54.5 [place] [address] [facility] [place] [id number] [address] [place] [address] August, Generalized anxiety disorder F41.1 and Major depressive disorder, recurrent episode with anxious distress F33.9 [place] [address] [facility] [place] [id number] [address] [place] [address] August, Generalized anxiety disorder F41.1 and Major depressive disorder, recurrent episode with anxious distress F33.9 [place] [address] [place] [id number] [address] [place] [address] August, Fibromyalgia M79.7 [place] [address] [facility] [place] [id number] [address] [place] [phone] Jul, Generalized anxiety disorder F41.1 and Major depressive disorder, recurrent episode with anxious distress F33.9 [place] [address] [facility] [place] [facility] [id number] [address] [place] [address] Jul, Fibromyalgia M79.7 [place] [address] [facility] [place] [id number] [address] [place] [address] Jul, Generalized anxiety disorder F41.1 [place] [id number] [place] [address] May, [place] [address] [address] May, Hypothyroid E03.9 [place] [address] [place] [id number] [address] [place] [address] May, Chronic kidney disease, 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 ; Hypothyroid E03.9 ; Restless leg G25.81 ; Fibromyalgia M79.7 ; Essential (primary) hypertension I10 ; Vitamin D deficiency E55.9 ; Dyspepsia R10.13 ; Acute non-recurrent maxillary sinusitis J01.00 ; Anemia in chronic kidney disease D63.1 ; Chronic kidney disease, unspecified N18.9 and Coronary artery disease involving [place] coronary artery of [place] heart, angina presence unspecified I25.10 [place] [address] [address] May, Vitamin D deficiency, unspec ified E55.9 [place] [address] [address] May, Generalized anxiety disorder F41.1 and Major depressive disorder, recurrent episode with anxious distress F33.9 [place] [address] [place] [id number] [address] [place] [address] Apr, Pain in right knee M25.561 a nd Pain in left knee M25.562 [place] [address] [place] [id number] [address] [place] [address] Apr, [place] [address] [address] Apr, [place] [address] [address] Apr, [place] [address] [place] [id number] [address] [place] [address] Mar, Generalized anxiety disorder F41.1 and Major depressive disorder, recurrent episode with anxious distress F33.9 [facility] [address] [facility] [place] [facility] [id number] [address] [place] [address] Mar, Generalized anxiety disorder F41.1 and Major depressive disorder, recurrent episode with anxious distress F33.9 [facility] [address] [facility] [place] [id number] [address] [place] [address] Mar, [facility] [address] [place] [id number] [place] [address] Mar, [facility] [address] [place] [id number] [address] [place] [address] Mar, [place] [address] [address] Mar, Asthma J45.909 and Fibromyal elvira M79.7 [place] [address] [place] [id number] [place] [address] Mar, Chronic kidney disease, 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 ; Vitamin D deficiency E55.9 and Essential (primary) hypertension I10 [place] [address] [place] [id number] [address] [place] [address] Feb, [place] [address] [place] [id number] [place] [address] Feb, Dysuria R30.0 ; Mixed stress and urge urinary incontinence N39.46 ; Fibromyalgia M79.7 and Chronic kidney disease, stage IV (severe) N18.4 [place] [address] [place] [id number] [address] [place] [address] Feb, Chronic kidney disease, 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 [place] [address] [place] [id number] [address] [place] [address] Feb, Chronic kidney disease, 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 [place] [address] [place] [id number] [address] [place] [address] Feb, [facility] [address] [address] Feb, Vitamin D deficiency, unspec ified E55.9 [facility] [address] [address] Jan, [facility] [address] [address] Jan, [facility] [address] [address] Dec, [place] [address] [address] Dec, Chronic kidney disease, 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 [place] [address] [address] Dec, Dysthymic disorder F34.1 and Generalized anxiety disorder F41.1 [place] [address] [address] Dec, [place] [address] [address] Dec, [place] [address] [address] Dec, Dysthymic disorder F34.1 and Generalized anxiety disorder F41.1 [place] [address] [address] Dec, Dysuria R30.0 ; Chronic kidn ey disease, stage 4 (severe) N18.4 ; Hypertension I10 ; Dyspepsia R10.13 ; Yeast dermatitis B37.2 ; Palpitations R00.2 ; Hypothyroid E03.9 ; Functional diarrhea K59.1 and Other seasonal allergic rhinitis J30.2 [facility] [address] [address] Dec, [facility] [address] [address] Nov, Dysuria R30.0 and Stress inc ontinence N39.3 [facility] [address] [address] Nov, [facility] [address] [address] Nov, [place] [address] [address] Nov, Osteoarthritis of knees, jose ateral M17.0 [place] [address] [address] Nov, Dysthymic disorder F34.1 and Generalized anxiety disorder F41.1 [place] [address] [address] Nov, [place] [address] [address] Nov, [place] [address] [address] Nov, Urgency of urination R39.15 [place] [address] [address] Nov, [place] [address] [address] Nov, Chronic kidney disease, 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 [place] [address] [address] Oct, Hypertension I10 ; Coronary artery disease involving [place] coronary artery of [place] heart, angina presence unspecified I25.10 ; Palpitations R00.2 ; Hypothyroid E03.9 ; Right foot pain M79.671 ; Functional diarrhea K59.1 and Other seasonal allergic rhinitis J30.2 [place] [address] [address] Oct, Dysthymic disorder F34.1 and Generalized anxiety disorder F41.1 [place] [address] [address] Sep, [facility] [address] [address] Sep, [facility] [address] [address] Sep, [place] [address] [address] Sep, [place] [address] [address] Sep, [place] [address] [address] Sep, Dysthymic disorder F34.1 and Generalized anxiety disorder F41.[address] [address] 16 Sep, 2015 Asthma with acute exacerbati on in adult J45.901 ; Dysuria R30.0 ; Chronic kidney disease, stage 4 (severe) N18.4 and History of anemia Z86.2 [place] [address] [address] Sep, Generalized anxiety disorder F41.1 and Dysthymic disorder F34.1 [place] [address] [address] August, Screening breast examination Z12.39 and Acute recurrent maxillary sinusitis J01.01 [place] [address] [address] August, Osteoarthritis of knees, jose ateral M17.0 [place] [address] [address] August, Chronic kidney disease, 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 ; Acute non- recurrent maxillary sinusitis J01.00 ; Urinary problem R39.89 ; Bowel habit changes R19.4 ; Functional diarrhea K59.1 and History of colon polyps Z86.010 [facility] [address] [facility] [place] [id number] [address] [place] [address] Jul, Dysthymic disorder F34.1 and Generalized anxiety disorder F41.1 [facility] [address] [facility] [place] [id number] [address] [place] [address] Jul, [facility] [address] [facility] [place] [id number] [address] [place] [address] Jul, Dysthymic disorder F34.1 ; G eneralized anxiety disorder F41.1 and intermediate use of drug Z79.899 [facility] [address] [facility] [place] [id number] [address] [place] [address] Jul, [facility] [address] [facility] [place] [facility] [id number] [address] [place] [address] Jun, [facility] [address] [facility] [place] [facility] [id number] [address] [place] [address] Jun, [facility] [address] [facility] [place] [facility] [id number] [address] [place] [address] May, [facility] [address] [facility] [place] [id number] [address] [place] [address] May, Dysthymic disorder F34.1 and Generalized anxiety disorder F41.1 [facility] [address] [facility] [place] [id number] [address] [place] [address] Apr, Kidney disease N28.9 [facility] [address] [facility] [place] [id number] [address] [place] [address] Apr, Generalized anxiety disorder F41.1 and Dysthymic disorder F34.1 [facility] [address] [facility] [place] [id number] [address] [place] [address] Apr, Chronic kidney disease, 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 [facility] [address] [facility] [place] [facility] [id number] [address] [place] [address] Apr, Generalized anxiety disorder F41.1 ; Major depression, recurrent F33.9 and Sleep disturbance G47.9 [place] [address] [address] Mar, Generalized anxiety disorder F41.1 and Dysthymic disorder F34.1 [facility] [address] [address] Mar, Generalized anxiety disorder F41.1 ; Dysthymic disorder F34.1 and Insomnia G47.00 [facility] [address] [address] Mar, [place] [address] [address] Mar, [place] [address] [address] Mar, Osteoarthritis of knees, jose ateral M17.0 [place] [address] [address] Mar, Hypertension I10 ; Hypothyro id E03.9 ; Dysthymic disorder F34.1 ; Chronic kidney disease, stage 4 (severe) N18.4 and Nausea & vomiting R11.2 [place] [address] [address] Mar, Generalized anxiety disorder F41.1 ; Dysthymic disorder F34.1 and Insomnia G47.00 [facility] [address] [address] Mar, Dehydration E86.0 ; Chronic kidney disease, stage 4 (severe) N18.4 and Nausea & vomiting R11.2 [facility] [address] [address] Mar, Gastroenteritis K52.9 [facility] [address] [address] Mar, [facility] [address] [address] Mar, [place] [address] [address] Feb, Dysthymic disorder F34.1 and Generalized anxiety disorder F41.1 [place] [address] [address] Jan, UTI (urinary tract infection ) N39.0 ; Asthma J45.909 ; Coronary artery disease involving [place] coronary artery of [place] heart, angina presence unspecified I25.10 ; Hypertension I10 ; Hypothyroid E03.9 ; Vitamin D deficiency E55.9 ; Insomnia G47.00 ; Palpitations R00.2 ; Depressed F32.9 ; Restless leg G25.81 and Anxiety F41.9 [place] [address] [address] Jan, Dysthymic disorder F34.1 and Generalized anxiety disorder F41.1 [place] [address] [address] Jan, [place] [address] [address] Dec, [place] [address] [address] Dec, Alkalosis 276.3 ; Chronic ki dney disease, Stage IV (severe) 585.4 ; Hyperpotassemia 276.7 ; Secondary hyperparathyroidism, renal 588.81 ; Proteinuria 791.0 ; Unspecified vitamin D deficiency 268.9 ; Anemia in chronic kidney disease 285.21 ; Other and unspecified hyperlipidemia 272.4 ; Hypertension, essential, benign 401.1 and Chronic kidney disease (CKD), stage III (moderate) 585.3 [place] [address] [address] Dec, [address] [address] Dec, Depressive disorder, not els ewhere classified 311 and Generalized anxiety disorder 300.02 [facility] [address] [facility] [place] [id number] [address] [place] [address] Dec, [facility] [address] [facility] [place] [id number] [address] [place] [address] Dec, [facility] [address] [place] [id number] [address] [place] [address] Nov, Depressive disorder, not els ewhere classified 311 and Generalized anxiety disorder 300.02 [facility] [address] [facility] [place] [id number] [address] [place] [address] Nov, Arthritis of both knees 716. 96 [facility] [address] [place] [id number] [place] [address] Nov, PAF (paroxysmal atrial fibri llation) 427.31 ; CAD (coronary artery disease) 414.00 ; Chest pain 786.50 and Chronic kidney disease (CKD) stage G4/A1, severely decreased glomerular filtration rate (GFR) between 15-29 mL/min/1.73 square meter and albuminuria creatinine ratio less than 30 mg/g 585.4 [place] [address] [place] [id number] [place] [address] Oct, Coronary atherosclerosis of unspecified type of vessel, [place] or graft 414.00 ; Chronic kidney disease, Stage IV (severe) 585.4 ; Hypertension 401.9 and Edema 782.3 [facility] [address] [place] [id number] [place] [address] Oct, Depressive disorder, not els ewhere classified 311 and Generalized anxiety disorder 300.02 [facility] [address] [facility] [place] [id number] [address] [place] [address] Oct, Depressive disorder, not els ewhere classified 311 and Generalized anxiety disorder 300.02 [facility] [address] [facility] [place] [id number] [address] [place] [address] Oct, [facility] [address] [place] [id number] [address] [place] [address] Oct, [place] [address] [address] Sep, [place] [address] [address] Sep, Chronic kidney disease, Stag e IV (severe) 585.[address] [address] Sep, [place] [address] [address] Sep, Coronary atherosclerosis of unspecified type of vessel, [place] or graft 414.00 ; Hypertension 401.9 ; Edema 782.3 and Hypothyroidism [address] [address] Sep, Coronary atherosclerosis of unspecified type of vessel, [place] or graft 414.00 ; Hypertension 401.9 ; Fibromyalgia 729.1 ; Edema 782.3 ; Hypothyroidism 244.9 and Anemia 285.9 [place] [address] [address] Sep, Anxiety disorder, unspecifie d 300.00 and Depressive disorder, not elsewhere classified [address] [address] Sep, [address] [address] August, Generalized anxiety disorder 300.[address] [address] August, Closed fracture of lateral m alleolus 824.[address] [address] Jul, [place] [address] [address] Jul[address] [address] Jun, [facility] [address] [id number] [address] [place] [address], [place] [address] Jun, [facility] [address] [id number] [address] [place] [address], [place] [address] Jun, [facility] [address] [id number] [address] [place] [address], [place] [address] Jun, [facility] [address] [id number] [address] [place] [address], [place] [address] Jun, [facility] [address] [id number] [address] [place] [address], [place] [address] Jun, [facility] [address] [id number] [address] [place] [address], [place] [address] May, 2014 [facility] [address] [address] [id number] [address] [place] [address], [place] [address] 19 May, 2014 [facility] [address] [id number] [address] [place] [address], [place] [address] 18 May, 2014 [facility] [address] [id number] [address] [place] [address], [place] [address] 18 May, 2014 [facility] [address] [id number] [address] [place] [address], [place] [address] 16 May, 2014 [facility] [address] [id number] [address] [place] [address], [place] [address] 16 May, 2014 [facility] [address] [id number] [address] [place] [address], [place] [address] 13 May, 2014 [facility] [address] [id number] [address] [place] [address], [place] [address] 13 May, 2014 [facility] [address] [id number] [address] [place] [address], [place] [address] 10 May, 2014 [facility] [address] [id number] [address] [place] [address], [place] [address] 10 May2014 [facility] [address] [id number] [address] [place] [address], [place] [address] Apr, [facility] [address] [id number] [address] [place] [address], [place] [address] Apr, [facility] [address] [id number] [address] [place] [address], [place] [address] Mar, [facility] [address] [id number] [address] [place] [address], [place] [address] Mar, [facility] [address] [id number] [address] [place] [address], [place] [address] Mar, [facility] [address] [id number] [address] [place] [address], [place] [address] Mar, [facility] [address] [id number] [address] [place] [address], [place] [address] Mar, [facility] [address] [id number] [address] [place] [address], [place] [address] Mar, [facility] [address] [id number] [address] [place] [address], [place] [address] Mar, [facility] [address] [id number] [address] [place] [address], [place] [address] Feb, [facility] [address] [id number] [address] [place] [address], [place] [address] Feb, [facility] [address] [id number] [address] [place] [address], [place] [address] Feb, [facility] [address] [id number] [address] [place] [address], [place] [address] Jan, [facility] [address] [id number] [address] [place] [address], [place] [address] Jan, [facility] [address] [id number] [address] [place] [address], [place] [address] Jan, [facility] [address] [id number] [address] [place] [address], [place] [address] Jan, [facility] [address] [id number] [address] [place] [address], [place] [address] Jan, [facility] [address] [id number] [address] [place] [address], [place] [address] Jan, [facility] [address] [id number] [address] [place] [address], [place] [address] Jan, [facility] [address] [id number] [address] [place] [address], [place] [address] Jan, [facility] [address] [id number] [address] [place] [address], [place] [address] Jan, [facility] [address] [id number] [address] [place] [address], [place] [address] Jan, [facility] [address] [id number] [address] [place] [address], [place] [address] Nov, [facility] [address] [id number] [address] [place] [address], [place] [address] Nov, [facility] [address] [id number] [address] [place] [address], [place] [address] Nov, [facility] [address] [id number] [address] [place] [address], [place] [address] Oct, [facility] [address] [id number] [address] [place] [address], [place] [address] Oct, [facility] [address] [id number] [address] [place] [address], [place] [address] Oct, [facility] [address] [id number] [address] [place] [address], [place] [address] Oct, [facility] [address] [id number] [address] [place] [address], [place] [address] Oct, [facility] [address] [id number] [address] [place] [address], [place] [address] Oct, [facility] [address] [id number] [address] [place] [address], [place] [address] Oct, [facility] [address] [id number] [address] [place] [address], [place] [address] Oct, [facility] [address] [id number] [address] [place] [address], [place] [address] Oct, [facility] [address] [id number] [address] [place] [address], [place] [address] Sep, [facility] [address] [id number] [address] [place] [address], [place] [address] Sep, [facility] [address] [id number] [address] [place] [address], [place] [address] Sep, [facility] [address] [id number] [address] [place] [address], [place] [address] Sep, [facility] [address] [id number] [address] [place] [address], [place] [address] Sep, [facility] [address] [id number] [address] [place] [address], [place] [address] Sep, [facility] [address] [id number] [address] [place] [address], [place] [address] Sep, [facility] [address] [id number] [address] [place] [address], [place] [address] Sep, [facility] [address] [id number] [address] [place] [address], [place] [address] Sep, [facility] [address] [id number] [address] [place] [address], [place] [address] August, [facility] [address] [id number] [address] [place] [address], [place] [address] August, [facility] [address] [id number] [address] [place] [address], [place] [address] August, [facility] [address] [id number] [address] [place] [address], [place] [address] August, [facility] [address] [id number] [address] [place] [address], [place] [address] August, [facility] [address] [id number] [address] [place] [address], [place] [address] August, [facility] [address] [id number] [address] [place] [address], [place] [address] Jul, [facility] [address] [id number] [address] [place] [address], [place] [address] Jul, [facility] [address] [id number] [address] [place] [address], [place] [address] Jul, [facility] [address] [id number] [address] [place] [address], [place] [address] Jul, [facility] [address] [id number] [address] [place] [address], [place] [address] Jul, [facility] [address] [id number] [address] [place] [address], [place] [address] Jul, [facility] [address] [id number] [address] [place] [address], [place] [address] Jun, [facility] [address] [id number] [address] [place] [address], [place] [address] Jun, [facility] [address] [id number] [address] [place] [address], [place] [address] May, [facility] [address] [id number] [address] [place] [address], [place] [address] May, [facility] [address] [id number] [address] [place] [address], [place] [address] May, [facility] [address] [id number] [address] [place] [address], [place] [address] May, [facility] [address] [id number] [address] [place] [address], [place] [address] Apr, [facility] [address] [id number] [address] [place] [address], [place] [address] Apr, [facility] [address] [id number] [address] [place] [address], [place] [address] 18 Mar, 2013 [facility] [address] [id number] [address] [place] [address], [place] [address] 18 Mar, 2013 [facility] [address] [id number] [address] [place] [address], [place] [address] 17 Mar, 2013 [facility] [address] [id number] [address] [place] [address], [place] [address] 17 Mar, 2013 [facility] [address] [id number] [address] [place] [address], [place] [address] Mar, [facility] [address] [id number] [address] [place] [address], [place] [address] Mar, [facility] [address] [id number] [address] [place] [address], [place] [address] Feb, [facility] [address] [id number] [address] [place] [address], [place] [address] Feb, [facility] [address] [id number] [address] [place] [address], [place] [address] 14 Feb, 2013 [facility] [address] [id number] [address] [place] [address], [place] [address] 14 Feb, 2013 [facility] [address] [id number] [address] [place] [address], [place] [address] 05 Feb, 2013 [facility] [address] [id number] [address] [place] [address], [place] [address] 05 Feb, 2013 [facility] [address] [id number] [address] [place] [address], [place] [address] 24 Jan, 2013 [facility] [address] [id number] [address] [place] [address], [place] [address] 24 Jan, 2013 [facility] [address] [id number] [address] [place] [address], [place] [address] Jan, [facility] [address] [id number] [address] [place] [address], [place] [address] Jan, [facility] [address] [id number] [address] [place] [address], [place] [address] Jan, [facility] [address] [id number] [address] [place] [address], [place] [address] Jan, [facility] [address] [id number] [address] [place] [address], [place] [address] Dec, [facility] [address] [id number] [address] [place] [address], [place] [address] Dec, [facility] [address] [id number] [address] [place] [address], [place] [address] Nov, [facility] [address] [id number] [address] [place] [address], [place] [address] Nov, [facility] [address] [id number] [address] [place] [address], [place] [address] Oct, [facility] [address] [id number] [address] [place] [address], [place] [address] Oct, [facility] [address] [id number] [address] [place] [address], [place] [address] Oct, [facility] [address] [id number] [address] [place] [address], [place] [address] Oct, [facility] [address] [id number] [address] [place] [address], [place] [address] Oct, [facility] [address] [id number] [address] [place] [address], [place] [address] Oct, [facility] [address] [id number] [address] [place] [address], [place] [address] Sep, [facility] [address] [id number] [address] [place] [address], [place] [address] Sep, [facility] [address] [id number] [address] [place] [address], [place] [address] Sep, [facility] [address] [id number] [address] [place] [address], [place] [address] Sep, [facility] [address] [id number] [address] [place] [address], [place] [address] August, [facility] [address] [id number] [address] [place] [address], [place] [address] August, [facility] [address] [id number] [address] [place] [address], [place] [address] August, [facility] [address] [id number] [address] [place] [address], [place] [address] August, [facility] [address] [id number] [address] [place] [address], [place] [address] August, [facility] [address] [id number] [address] [place] [address], [place] [address] Jul, [facility] [address] [id number] [address] [place] [address], [place] [address] Jul, [facility] [address] [id number] [address] [place] [address], [place] [address] Jul, [facility] [address] [id number] [address] [place] [address], [place] [address] Jul, [facility] [address] [id number] [address] [place] [address], [place] [address] Jul, [facility] [address] [id number] [address] [place] [address], [place] [address] Jul, [facility] [address] [id number] [address] [place] [address], [place] [address] Jul, [facility] [address] [id number] [address] [place] [address], [place] [address] Jul, [facility] [address] [id number] [address] [place] [address], [place] [address] Jul, [facility] [address] [id number] [address] [place] [address], [place] [address] Jul, [facility] [address] [id number] [place] [id number] Jun, [facility] [address] [id number] [address] [place] [address], [place] [address] Jun, [facility] [address] [id number] [address] [place] [address], [place] [address] Jun, [facility] [address] [id number] [address] [place] [address], [place] [address] Jun, [facility] [address] [id number] [address] [place] [address], [place] [address] Jun, [facility] [address] [id number] [address] [place] [address], [place] [address] May, [facility] [address] [id number] [address] [place] [address], [place] [address] May, [facility] [address] [id number] [address] [place] [address], [place] [address] May, [facility] [address] [id number] [address] [place] [address], [place] [address] Apr, [facility] [address] [id number] [address] [place] [address], [place] [address] Apr, [facility] [address] [id number] [address] [place] [address], [place] [address] Apr, [facility] [address] [id number] [address] [place] [address], [place] [address] Apr, [facility] [address] [id number] [address] [place] [address], [place] [address] Apr, [facility] [address] [id number] [address] [place] [address], [place] [address] Apr, [facility] [address] [id number] [address] [place] [address], [place] [address] Mar, [facility] [address] [id number] [address] [place] [address], [place] [address] Mar, [facility] [address] [id number] [address] [place] [address], [place] [address] Mar, [facility] [address] [id number] [address] [place] [address], [place] [address] Mar, [facility] [address] [id number] [address] [place] [address], [place] [address] Feb, [facility] [address] [id number] [address] [place] [address], [place] [address] Feb, [facility] [address] [id number] [address] [place] [address], [place] [address] Feb, [facility] [address] [id number] [address] [place] [address], [place] [address] Feb, [facility] [address] [id number] [address] [place] [address], [place] [address] Feb, [facility] [address] [id number] [address] [place] [address], [place] [address] Feb, [facility] [address] [id number] [address] [place] [address], [place] [address] Feb, [facility] [address] [id number] [address] [place] [address], [place] [address] Feb, [facility] [address] [id number] [address] [place] [address], [place] [address] Feb, [facility] [address] [id number] [address] [place] [address], [place] [address] Feb, [facility] [address] [id number] [address] [place] [address], [place] [address] Feb, [facility] [address] [id number] [address] [place] [address], [place] [address] Feb, [facility] [address] [id number] [address] [place] [address] Feb, [facility] [address] [id number] [address] [place] [address] Feb, [facility] [address] [id number] [address] [place] [address] Feb, [facility] [address] [id number] [address] [place] [address] Feb, [facility] [address] [id number] [address] [place] [address] Jan, [facility] [address] [id number] [address] [place] [address], [place] [address] Jan, [facility] [address] [id number] [address] [place] [address] Jan, [facility] [address] [id number] [address] [place] [address] Jan, [facility] [address] [id number] [address] [place] [address] Jan, [facility] [address] [id number] [address] [place] [id number] Jan, [facility] [address] [id number] [address] [place] [id number] Jan, [facility] [address] [id number] [address] [place] [id number] 16 Jan, 2012 [facility] [address] [id number] [address] [place] [id number] 16 Jan, 2012 [facility] [address] [id number] [address] [place] [id number] 15 Jan, 2012 [facility] [address] [id number] [address] [place] [id number] Jan, [facility] [address] [id number] [address] [place] [id number] Jan, [facility] [address] [id number] [facility] [place] [address] 26 Sep, 2011 [facility] [address] [id number] [address] [place] [address], [place] [address] 26 Sep, 2011 [facility] [address] [id number] [address] [place] [address], [place] [address] 24 Sep, 2011 [facility] [address] [id number] [address] [place] [address], [place] [address] 23 Sep, 2011 [facility] [address] [id number] [address] [place] [address], [place] [address] 22 Sep, 2011 [facility] [address] [id number] [address] [place] [address], [place] [address] 21 Sep, 2011 [facility] [address] [id number] [address] [place] [address], [place] [address] 20 Sep, 2011 [facility] [address] [id number] [address] [place] [address], [place] [address] 20 Sep, 2011 [facility] [address] [id number] [address] [place] [address], [place] [address] 07 Sep, 2011 [facility] [address] [id number] [address] [place] [address], [place] [address] 06 Sep, 2011 [facility] [address] [id number] [address] [place] [address], [place] [address] 06 Sep, 2011 [facility] [address] [id number] [address] [place] [address], [place] [address] 05 Sep, 2011 [facility] [address] [id number] [address] [place] [address], [place] [address] 23 Nov, 2011 [facility] [address] [id number] [address] [place] [address], [place] [address] 17 Nov, 2011 [facility] [address] [id number] [address] [place] [address], [place] [address] 13 Nov, 2011 [facility] [address] [id number] [address] [place] [address], [place] [address] Nov, [facility] [address] [id number] [address] [place] [address], [place] [address] Nov, [facility] [address] [id number] [address] [place] [address], [place] [address] Nov, [facility] [address] [id number] [address] [place] [address], [place] [address] Nov, [facility] [address] [id number] [address] [place] [address], [place] [address] Nov, [facility] [address] [id number] [address] [place] [address], [place] [address] Oct, [facility] [address] [id number] [address] [place] [address], [place] [address] Oct, [facility] [address] [id number] [address] [place] [address], [place] [address] Oct, [facility] [address] [id number] [address] [place] [address], [place] [address] Oct, [facility] [address] [id number] [address] [place] [address], [place] [address] Oct, [facility] [address] [id number] [address] [place] [address], [place] [address] Oct, [facility] [address] [id number] [address] [place] [address], [place] [address] Oct, [facility] [address] [id number] [address] [place] [address], [place] [address] Sep, [facility] [address] [id number] [address] [place] [address], [place] [address] Sep, [facility] [address] [id number] [address] [place] [address], [place] [address] August, [facility] [address] [id number] [address] [place] [address], [place] [address] August, [facility] [address] [id number] [address] [place] [address], [place] [address] August, [facility] [address] [id number] [address] [place] [address], [place] [address] August, [facility] [address] [id number] [address] [place] [address], [place] [address] Jul, [facility] [address] [id number] [address] [place] [address], [place] [address] Jul, [facility] [address] [id number] [address] [place] [address], [place] [address] Jul, [facility] [address] [id number] [address] [place] [address], [place] [address] Jul, [facility] [address] [id number] [address] [place] [address], [place] [address] Jul, [facility] [address] [id number] [address] [place] [address], [place] [address] Jul, [facility] [address] [id number] [address] [place] [address], [place] [address] Jul, [facility] [address] [id number] [address] [place] [address], [place] [address] Jul, [facility] [address] [id number] [address] [place] [address], [place] [address] Jul, [facility] [address] [id number] [address] [place] [address], [place] [id number] 23 Jun, 2011 [facility] [address] [id number] [address] [place] [address], [place] [address] 19 Jun, 2011 [facility] [address] [id number] [address] [place] [address], [place] [address] 15 Jun, 2011 [facility] [address] [id number] [address] [place] [address], [place] [address] 14 Jun, 2011 [facility] [address] [id number] [address] [place] [address], [place] [address] 12 Jun, 2011 [facility] [address] [id number] [address] [place] [address], [place] [address] Jun, [facility] [address] [id number] [address] [place] [address], [place] [address] Jun, [facility] [address] [id number] [address] [place] [address], [place] [address] May, [facility] [address] [id number] [address] [place] [address], [place] [address] May, [facility] [address] [id number] [address] [place] [address], [place] [address] May, [facility] [address] [id number] [address] [place] [address], [place] [address] May, [facility] [address] [id number] [address] [place] [address], [place] [address] May, [facility] [address] [id number] [address] [place] [address], [place] [address] Apr, [facility] [address] [id number] [address] [place] [address], [place] [address] Apr, [facility] [address] [id number] [address] [place] [address], [place] [address] Apr, [facility] [address] [id number] [address] [place] [address], [place] [address] Apr, [facility] [address] [id number] [address] [place] [address], [place] [address] Apr, [facility] [address] [id number] [address] [place] [address], [place] [address] Mar, [facility] [address] [id number] [address] [place] [address], [place] [address] Mar, [facility] [address] [id number] [address] [place] [address], [place] [address] Mar, [facility] [address] [id number] [address] [place] [address] Mar, [facility] [address] [id number] [address] [place] [address], [place] [address] Mar, [facility] [address] [id number] [address] [place] [id number] Mar, [facility] [address] [id number] [address] [place] [address], [place] [address] Mar, [facility] [address] [id number] [address] [place] [address] Feb, [facility] [address] [id number] [address] [place] [address], [place] [address] Feb, [facility] [address] [id number] [address] [place] [address], [place] [address] Feb, [facility] [address] [id number] [address] [place] [address], [place] [address] Feb, [facility] [address] [id number] [address] [place] [address], [place] [address] Jan, [facility] [address] [id number] [address] [place] [address], [place] [address] Jan, [facility] [address] [id number] [address] [place] [address], [place] [address] Jan, [facility] [address] [id number] [address] [place] [address] Jan, [facility] [address] [id number] [address] [place] [address] Nov, [facility] [address] [id number] [address] [place] [address], [place] [address] Mar, [facility] [address] [id number] [address] [place] [address], [place] [address] Mar, [facility] [address] [id number] [address] [place] [address], [place] [address] Mar, [facility] [address] [id number] [address] [place] [address] Mar, [facility] [address] [facility] [id number] [address] [place] [address] Mar, [facility] [address] [facility] [id number] [address] [place] [address] Mar, [facility] [address] [facility] [id number] [address] [place] [address] Feb, [facility] [address] [facility] [id number] [address] [place] [address] Feb, [facility] [address] [facility] [place] [id number] [address] [place] [address] Jan, [facility] [address] [facility] [id number] [address] [place] [address] Jan, [facility] [address] [place] [id number] [address] [place] [address] Jan, IMMUNIZATIONS No Known Immunizations SOCIAL HISTORY [...] History CPAP Noncompliance_ Dr. Madden advises a [employer] driving. Medical History Bacterial meningitis 12/2016 Medical [...] 09-2015 & 2007 Surgical History Bladder surgery [facility] 03/2016 Surgical History Neurotransmitter placed 10/2017 Surgical History retninal repair 12/31/2017 Surgical History cataract surgery 2018 Surgical History cataract surgery 2018 Surgical History SCS trial x7 days 2018 Surgical History SCS implant removed. 2019 Hospitalization History Surgeries Only Hospitalization History bacterial meningitis December 2016 Hospitalization History [facility] psych for SI 1988 Hospitalization History [facility]-Altered mental status 05/2017 Hospitalization History sepsis, UTI, headache 08/03/2018-
--- OUTSIDE RECORDS SUMMARY | 2019-08-01 10:11 | XMS REPORT ---
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 Active 15311867 Problem Chronic kidney disease, stage 4 (severe) N18.4 Active 572486108 Problem Degenerative tear of medial meniscus of left knee M23.204 Active 400927418 Problem Dysthymic disorder F34.1 Active 7 9714243 Problem Primary osteoarthritis of left knee M17.12 Active 540917371 Problem Generalized anxiety disorder F41.1 A ctive 04210535 Problem Restless leg G25.81 Active 0982322 8 Problem Coronary artery disease invo lving [place] coronary artery of [place] heart, angina presence unspecified I25.10 Active 1106489202242 Problem Hypokalemia E87.6 Active 13348589 Problem Other seasonal allergic rhinitis J30.2 Active 844140964 Problem Mixed stress and urge urinary incontinence N39.46 Active 669999085 Problem Fibromyalgia M79.7 Active 2962613 05 Problem Essential (primary) hypertension I10 Active 94649655 Problem Long-term use of high-risk medication Z79.899 Active 076982770 Problem Vitamin D deficiency E55.9 Active 44121323 Problem Anemia in chronic kidney disease D63.1 Active 702266643189480 Problem Low back pain M54.5 Active 218368 009 Problem Chronic kidney disease, unspecified N18.9 Active 677244608 Problem Abnormal chest CT R93.8 Active 44 0026285 Problem Mood disorder F39 Active 545736 05 Problem Stage 3 chronic kidney disease N18.3 Active 902555122 Problem Body mass index (BMI) of 40.0-44.9 in adult Z68.41 Active 663093548 Problem Other chronic pain G89.29 Active 8 3794741 Problem Asthma with acute exacerbation in adult J45.901 Active 133096890 Problem Major depressive disorder, recurrent, moderate F33 .1 Active 852869687 Problem History of colon polyps Z86.010 Active 448357696 Problem History of anemia Z86.2 Active 27 7849510 Problem Seasonal allergic rhinitis due to pollen J30.1 Active 54500620 Problem Restless leg syndrome G25.81 Active 08867588 Problem Chronic pain syndrome G89.4 Active 724204083 Problem Perimenopausal vasomotor symptoms N95.1 Active 075801453 ALLERGIES No Information ENCOUNTERS Encounter Location Date Diagnosis [facility] [address] [facility] [id number] [address] [place] [phone] Dec, [facility] [address] [facility] [id number] [address] [place] [phone] Nov, [facility] [address] [facility] [id number] [address] [place] [phone] Nov, [facility] [address] [facility] [id number] [address] [place] [phone] Nov, Chronic pain syndrome G89.4 [facility] [address] [facility] [id number] [address] [place] [phone] Nov, Restless leg syndrome G25.81 [facility] [address] [facility] [id number] [address] [place] [id number] Nov, Pain in right shoulder M25.5 11 ; Restless leg syndrome G25.81 ; Other chronic pain G89.29 ; Screening for breast cancer Z12.39 ; Insomnia G47.00 and Morbid obesity E66.01 [facility] [address] [facility] [id number] [address] [place] [phone] Nov, [facility] [address] [facility] [id number] [address] [place] [phone] Oct, Major depressive disorder, r ecurrent, moderate F33.1 ; Generalized anxiety disorder F41.1 and Dysthymic disorder F34.1 [facility] [address] [id number] [address] [place] [phone] Oct, [facility] [address] [id number] [address] [place] [id number] Oct, Cellulitis of left lower ext remity L03.116 and Morbid obesity E66.01 [facility] [address] [id number] [address] [place] [id number] Oct, [facility] [address] [id number] [address] [place] [phone] Oct, [facility] [address] [id number] [address] [place] [phone] Oct, Generalized anxiety disorder F41.1 and Major depressive disorder, recurrent episode with anxious distress F33.9 [facility] [address] [id number] [address] [place] [phone] Oct, [facility] [address] [id number] [address] [place] [phone] Oct, Chronic pain syndrome G89.4 [facility] [address] [id number] [address] [place] [id number] Oct, Chronic pain syndrome G89.4 [facility] [address] [id number] [address] [place] [phone] Oct, UTI symptoms R39.9 ; Acute c ystitis without hematuria N30.00 and Morbid obesity E66.01 [facility] [address] [id number] [address] [place] [phone] Oct, [facility] [address] [id number] [address] [place] [phone] Oct, Chronic pain syndrome G89.4 [facility] [address] [id number] [address] [place] [phone] Sep, [facility] [address] [id number] [address] [place] [phone] Sep, Generalized anxiety disorder F41.1 and Major depressive disorder, recurrent episode with anxious distress F33.9 [facility] [address] [facility] [id number] [address] [place] [id number] 17 Sep, 2018 Chronic kidney disease, 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 [facility] [address] [id number] [address] [place] [phone] Sep, Fibromyalgia M79.7 and Chron ic pain syndrome G89.4 [facility] [address] [id number] [address] [place] [phone] Sep, [address] [address] Sep, Chronic pain syndrome G89.4 [facility] [address] [id number] [address] [place] [id number] Sep, [place] [address] [facility] [id number] [address] [place] [phone] Sep, Chronic pain syndrome G89.4 ; Fibromyalgia M79.7 and Morbid obesity E66.01 [place] [address] [facility] [id number] [address] [place] [id number] August, Generalized anxiety disorder F41.1 and Major depressive disorder, recurrent episode with anxious distress F33.9 [facility] [address] [facility] [id number] [address] [place] [phone] August, Fibromyalgia M79.7 [facility] [address] [facility] [id number] [address] [place] [id number] August, Restless leg syndrome G25.81 ; Vitamin D deficiency E55.9 ; Urinary tract infection without hematuria, site unspecified N39.0 ; Pain in right shoulder M25.511 ; Other chronic pain G89.29 ; Biceps tendinitis on right M75.21 and Morbid obesity E66.01 [facility] [address] [id number] [address] [place] [id number] Jul, Urinary tract infection with out hematuria, site unspecified N39.0 and Morbid obesity E66.01 [facility] [address] [place] [id number] [address] [place] [phone] Jul, [facility] [address] [place] [id number] [address] [place] [phone] Jul, [facility] [address] [place] [id number] [place] [address] Jul, Fibromyalgia M79.7 [facility] [address] [place] [id number] [place] [address] Jul, Acute pain of right shoulder M25.511 [place] [address] [place] [id number] [place] [address] Jul, Acute pain of right shoulder M25.511 and Morbid obesity E66.01 [place] [address] [address] Jun, [place] [address] [address] Jun, Generalized anxiety disorder F41.1 and Major depressive disorder, recurrent episode with anxious distress F33.9 [place] [address] [place] [id number] [address] [place] [phone] Jun, [facility] [address] [place] [id number] [address] [place] [id number] Jun, Fibromyalgia M79.7 [facility] [address] [place] [id number] [address] [place] [id number] Jun, Acute pain of right shoulder M25.511 ; Acute pain of right hip M25.551 and Morbid obesity E66.01 [facility] [address] [place] [id number] [address] [place] [phone] May, Burning with urination R30.0 ; Vaginal discharge N89.8 ; Chronic kidney disease, stage 4 (severe) N18.4 ; Body mass index (BMI) of 40.0-44.9 in adult Z68.41 and Morbid obesity E66.01 [facility] [address] [id number] [address] [place] [id number] 07 May, 2018 Fibromyalgia M79.7 [facility] [address] [facility] [id number] [address] [place] [id number] 06 May, 2018 Generalized anxiety disorder F41.1 and Major depressive disorder, recurrent episode with anxious distress F33.9 [facility] [address] [facility] [id number] [address] [place] [id number] 24 Apr, 2018 [facility] [address] [facility] [id number] [address] [place] [phone] 08 Apr, 2018 Fibromyalgia M79.7 [facility] [address] [facility] [id number] [address] [place] [id number] 14 Mar, 2018 Acute UTI N39.0 and Dysuria R30.0 [facility] [address] [facility] [id number] [address] [place] [phone] Mar, Fibromyalgia M79.7 [facility] [address] [facility] [id number] [address] [place] [phone] 15 Feb, 2018 [facility] [address] [facility] [id number] [address] [place] [phone] Feb, [facility] [address] [facility] [id number] [address] [place] [phone] Feb, [facility] [address] [facility] [id number] [address] [place] [phone] Feb, Fibromyalgia M79.7 [facility] [address] [facility] [id number] [address] [place] [phone] 08 Feb, 2018 Complicated UTI (urinary tra ct infection) N39.0 [facility] [address] [facility] [id number] [address] [place] [id number] 07 Feb, 2018 [facility] [address] [facility] [id number] [address] [place] [phone] Jan, Generalized anxiety disorder F41.1 and Major depressive disorder, recurrent episode with anxious distress F33.9 [facility] [address] [id number] [address] [place] [phone] Jan, Acute conjunctivitis of left eye, unspecified acute conjunctivitis type H10.32 [facility] [address] [id number] [address] [place] [phone] Jan, [facility] [address] [facility] [id number] [address] [place] [id number] Jan, Acute non-recurrent maxillar y sinusitis J01.00 ; Dysuria R30.0 ; Perimenopausal vasomotor symptoms N95.1 and Fibromyalgia M79.7 [facility] [address] [id number] [address] [place] [id number] 28 Dec, 2017 Vitamin D deficiency E55.9 [facility] [address] [id number] [address] [place] [phone] Dec, Vitamin D deficiency E55.9 [facility] [address] [id number] [address] [place] [phone] 24 Dec, 2017 Vitamin D deficiency E55.9 [facility] [address] [id number] [address] [place] [phone] Dec, [facility] [address] [id number] [address] [place] [phone] Dec, Fibromyalgia M79.7 [facility] [address] [id number] [address] [place] [phone] Nov, [facility] [address] [id number] [address] [place] [phone] Nov, [facility] [address] [id number] [address] [place] [phone] Nov, [facility] [address] [id number] [address] [place] [phone] Nov, Fibromyalgia M79.7 ; Vision changes H53.9 ; Chest wall pain R07.89 and Chronic pain syndrome G89.4 [facility] [address] [id number] [address] [place] [phone] Nov, [facility] [address] [id number] [address] [place] [phone] Nov, Rash of hands R21 [facility] [address] [id number] [address] [place] [phone] Nov, Generalized anxiety disorder F41.1 and Major depressive disorder, recurrent episode with anxious distress F33.9 [facility] [address] [id number] [address] [place] [phone] Nov, Fibromyalgia M79.7 [facility] [address] [id number] [address] [place] [phone] Nov, Complicated UTI (urinary tra ct infection) N39.0 [place] [address] [id number] [address] [place] [phone] Oct, [facility] [address] [id number] [address] [place] [phone] Oct, Generalized anxiety disorder F41.1 and Major depressive disorder, recurrent episode with anxious distress F33.9 [facility] [address] [id number] [address] [place] [phone] Oct, [facility] [address] [id number] [address] [place] [id number] Oct, Fibromyalgia M79.7 [facility] [address] [facility] [id number] [address] [place] [phone] Sep, Restless leg syndrome G25.81 and Restless leg G25.81 [facility] [address] [id number] [address] [place] [id number] Sep, [facility] [address] [facility] [id number] [address] [place] [phone] Sep, Seasonal allergic rhinitis d ue to pollen J30.1 ; Screening for breast cancer Z12.31 ; Chest pain at rest R07.9 ; Restless leg syndrome G25.81 ; Essential (primary) hypertension I10 and Depressed F32.9 [facility] [address] [facility] [id number] [address] [place] [id number] August, Fibromyalgia M79.7 [facility] [address] [facility] [id number] [address] [place] [phone] August, [facility] [address] [facility] [id number] [address] [place] [phone] August, [facility] [address] [id number] [address] [place] [phone] August, Abnormal chest [address] R93.8 [place] [address] [facility] [id number] [address] [place] [phone] August, Generalized anxiety disorder F41.1 and Major depressive disorder, recurrent episode with anxious distress F33.9 [place] [address] [facility] [id number] [address] [place] [phone] August, Abnormal chest [address] R93.8 [place] [address] [facility] [id number] [address] [place] [phone] Jul, [place] [address] [facility] [id number] [address] [place] [phone] Jul, Chronic kidney disease, 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 [place] [address] [facility] [id number] [address] [place] [phone] Jul, [place] [address] [facility] [id number] [address] [place] [id number] Jul, Restless leg G25.81 ; Mixed stress and urge urinary incontinence N39.46 and Fibromyalgia M79.7 [facility] [address] [facility] [id number] [address] [place] [phone] Jul, Chronic kidney disease, 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 [facility] [address] [facility] [id number] [address] [place] [id number] Jun, Orthostatic hypotension I95. 1 ; Chronic kidney disease, stage 4 (severe) N18.4 ; Chest wall discomfort R07.89 and Body mass index (BMI) of 40.0- 44.9 in adult Z68.41 [facility] [address] [facility] [id number] [address] [place] [id number] Jun, [facility] [address] [facility] [id number] [address] [place] [id number] Jun, Orthostatic hypotension I95. 1 [facility] [address] [facility] [id number] [address] [place] [id number] Jun, [facility] [address] [facility] [id number] [place] [phone] Jun, Orthostatic hypotension I95. 1 ; Dysuria R30.0 and Acute cystitis without hematuria N30.00 [facility] [address] [place] [id number] [address] [place] [phone] Jun, [facility] [address] [facility] [id number] [address] [place] [id number] Jun, Chronic kidney disease, 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 [place] [address] [place] [id number] [address] [place] [phone] Jun, Fibromyalgia M79.7 [facility] [address] [place] [id number] [address] [place] [phone] Jun, [facility] [address] [place] [id number] [address] [place] [phone] Jun, [facility] [address] [facility] [id number] [address] [place] [phone] May, Abnormal chest [address] R93.8 and Stage 3 chronic kidney disease N18.3 [facility] [address] [facility] [id number] [address] [place] [id number] May, Chronic kidney disease, 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 [facility] [address] [place] [id number] [address] [place] [phone] May, Chronic kidney disease, 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 [facility] [address] [id number] [address] [place] [phone] May, Abnormal chest [address] R93.8 [facility] [address] [id number] [address] [place] [phone] May, [facility] [address] [id number] [address] [place] [phone] May, [place] [address] [id number] [address] [place] [address] May, Generalized anxiety disorder F41.1 and Major depressive disorder, recurrent episode with anxious distress F33.9 [facility] [address] [id number] [address] [place] [phone] May, Mood disorder F39 [place] [address] [id number] [address] [place] [phone] Apr, [place] [address] [id number] [address] [place] [id number] Apr, Infected skin lesion L08.9 a nd Muscle strain of right shoulder region, initial encounter S46.911A [facility] [address] [id number] [address] [place] [id number] Apr, Generalized anxiety disorder F41.1 and Major depressive disorder, recurrent episode with anxious distress F33.9 [place] [address] [id number] [address] [place] [phone] Apr, [facility] [address] [facility] [id number] [address] [place] [address] Apr, Recent urinary tract infecti on Z87.440 and Hypothyroid E03.9 [facility] [address] [id number] [address] [place] [phone] Apr, Generalized anxiety disorder F41.1 and Major depressive disorder, recurrent episode with anxious distress F33.9 [facility] [address] [id number] [address] [place] [id number] Apr, Recent urinary tract infecti on Z87.440 [facility] [address] [id number] [address] [place] [id number] 28 Mar, 2017 [facility] [address] [id number] [address] [place] [id number] 26 Mar, 2017 Dysuria R30.0 ; Acute cystit is without hematuria N30.00 and BMI 40.0-44.9, adult Z68.41 [place] [address] [id number] [address] [place] [id number] 14 Mar, 2017 [facility] [address] [id number] [address] [place] [id number] Mar, [facility] [address] [facility] [id number] [address] [place] [id number] Mar, Generalized anxiety disorder F41.1 and Major depressive disorder, recurrent episode with anxious distress F33.9 [facility] [address] [id number] [address] [place] [phone] 29 Feb, 2017 Conjunctivitis, bacterial H1 0.9 [place] [address] [id number] [address] [place] [id number] 27 Feb, 2017 [facility] [address] [id number] [address] [place] [id number] 15 Feb, 2017 Conjunctivitis, bacterial H1 0.9 [facility] [address] [id number] [address] [place] [phone] 15 Feb, 2017 [facility] [address] [id number] [address] [place] [id number] 10 Feb, 2017 Dysuria R30.0 ; Acute cystit is N30.00 and BMI 40.0-44.9, adult Z68.41 [facility] [address] [id number] [address] [place] [id number] Feb, [facility] [address] [facility] [id number] [address] [place] [id number] Feb, Generalized anxiety disorder F41.1 and Major depressive disorder, recurrent episode with anxious distress F33.9 [facility] [address] [facility] [id number] [address] [place] [id number] Feb, Mood disorder F39 and BMI 40 .0-44.9, adult Z68.41 [place] [address] [place] [id number] [address] [place] [id number] Jan, [place] [address] [place] [id number] [address] [place] [id number] Jan, [place] [address] [place] [id number] [place] [id number] Jan, Hypothyroid E03.9 [place] [address] [address] [place] [id number] [place] [id number] Jan, [place] [address] [address] [place] [id number] [place] [id number] Jan, Chronic kidney disease, unsp ecified N18.9 ; Hypokalemia E87.6 ; Essential (primary) hypertension I10 ; Fibromyalgia M79.7 ; Coronary artery disease involving [place] coronary artery of [place] heart, angina presence unspecified I25.10 ; Hypothyroid E03.9 and Encounter for immunization Z23 [place] [address] [address] [place] [id number] [place] [id number] Jan, Hypothyroid E03.9 [place] [address] [address] [facility] [id number] [address] [place] [id number] Jan, [place] [address] [address] [place] [id number] [place] [id number] Dec, Vitamin D deficiency E55.9 [place] [facility] [address] [facility] [id number] [address] [place] [id number] Dec, Primary osteoarthritis of le ft knee M17.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 [facility] [address] [id number] [address] [place] [id number] 19 Dec, 2016 Fibromyalgia M79.7 [facility] [address] [id number] [address] [place] [id number] 18 Dec, 2016 Mood disorder F39 [facility] [address] [id number] [address] [place] [id number] 13 Dec, 2016 [facility] [address] [id number] [address] [place] [id number] 13 Dec, 2016 Generalized anxiety disorder F41.1 and Major depressive disorder, recurrent episode with anxious distress F33.9 [facility] [address] [id number] [address] [place] [id number] 11 Dec, 2016 [facility] [address] [id number] [address] [place] [id number] 08 Dec, 2016 Streptococcal meningitis G00 .2 [facility] [address] [id number] [address] [place] [id number] 07 Dec, 2016 Streptococcal meningitis G00 .2 [facility] [address] [id number] [address] [place] [id number] 07 Dec, 2016 [facility] [address] [id number] [address] [place] [id number] 06 Dec, 2016 Streptococcal meningitis G00 .2 [facility] [address] [id number] [address] [place] [id number] 06 Dec, 2016 [facility] [address] [id number] [address] [place] [id number] 06 Dec, 2016 Major depressive disorder, r ecurrent episode with anxious distress F33.9 [facility] [address] [id number] [address] [place] [id number] Nov, Fever, unspecified fever cau se R50.9 [facility] [address] [id number] [address] [place] [phone] Nov, [facility] [address] [id number] [address] [place] [id number] Nov, Hypothyroid E03.9 [facility] [address] [facility] [id number] [address] [place] [id number] Nov, Generalized anxiety disorder F41.1 and Major depressive disorder, recurrent episode with anxious distress F33.9 [facility] [address] [id number] [address] [place] [id number] Nov, [facility] [address] [id number] [address] [place] [id number] Oct, Dental examination Z01.20 [facility] [address] [facility] [id number] [address] [place] [phone] Oct, Generalized anxiety disorder F41.1 and Major depressive disorder, recurrent episode with anxious distress F33.9 [facility] [address] [facility] [id number] [address] [place] [phone] Oct, Chronic kidney disease, 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 [facility] [address] [facility] [id number] [address] [place] [id number] Oct, [facility] [address] [facility] [id number] [address] [place] [id number] Oct, Fibromyalgia M79.7 [facility] [address] [facility] [id number] [address] [place] [phone] Oct, [facility] [address] [facility] [id number] [address] [place] [phone] Oct, Generalized anxiety disorder F41.1 ; Major depressive disorder, recurrent episode with anxious distress F33.9 and Bipolar disorder, current episode manic without psychotic features F31.10 [facility] [address] [facility] [id number] [address] [place] [id number] Sep, [facility] [address] [facility] [id number] [address] [place] [phone] Sep, [facility] [address] [facility] [id number] [address] [place] [id number] 15 Sep, 2016 Vitamin D deficiency E55.9 [place] [address] [facility] [id number] [address] [place] [id number] 14 Sep, 2016 Vitamin D deficiency E55.9 [place] [address] [facility] [id number] [address] [place] [phone] Sep, [place] [address] [place] [id number] [address] [place] [phone] Sep, Chronic kidney disease, 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 ; Hypothyroid E03.9 ; Restless leg G25.81 ; Fibromyalgia M79.7 ; Essential (primary) hypertension I10 ; Vitamin D deficiency E55.9 ; Dyspepsia R10.13 ; Anemia in chronic kidney disease D63.1 ; Chronic kidney disease, unspecified N18.9 ; Coronary artery disease involving [place] coronary artery of [place] heart, angina presence unspecified I25.10 ; Screening breast examination Z12.39 and Low back pain M54.5 [place] [address] [facility] [id number] [address] [place] [phone] August, Generalized anxiety disorder F41.1 and Major depressive disorder, recurrent episode with anxious distress F33.9 [place] [address] [facility] [id number] [address] [place] [phone] August, Generalized anxiety disorder F41.1 and Major depressive disorder, recurrent episode with anxious distress F33.9 [place] [address] [facility] [id number] [address] [place] [phone] August, Fibromyalgia M79.7 [place] [address] [facility] [id number] [address] [place] [id number] Jul, Generalized anxiety disorder F41.1 and Major depressive disorder, recurrent episode with anxious distress F33.9 [place] [address] [facility] [id number] [address] [place] [id number] Jul, Fibromyalgia M79.7 [place] [address] [place] [id number] [address] [place] [id number] Jul, Generalized anxiety disorder F41.1 [place] [address] [address] May, [place] [address] [address] May, Hypothyroid E03.9 [place] [address] [address] May, Chronic kidney disease, 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 ; Hypothyroid E03.9 ; Restless leg G25.81 ; Fibromyalgia M79.7 ; Essential (primary) hypertension I10 ; Vitamin D deficiency E55.9 ; Dyspepsia R10.13 ; Acute non-recurrent maxillary sinusitis J01.00 ; Anemia in chronic kidney disease D63.1 ; Chronic kidney disease, unspecified N18.9 and Coronary artery disease involving [place] coronary artery of [place] heart, angina presence unspecified I25.10 [place] [address] [address] May, Vitamin D deficiency, unspec ified E55.9 [place] [address] [address] May, Generalized anxiety disorder F41.1 and Major depressive disorder, recurrent episode with anxious distress F33.9 [place] [address] [place] [id number] [address] [place] [address] Apr, Pain in right knee M25.561 a nd Pain in left knee M25.562 [place] [address] [address] Apr, [place] [address] [address] Apr, [place] [address] [place] [id number] [address] [place] [phone] Apr, [place] [address] [address] Mar, Generalized anxiety disorder F41.1 and Major depressive disorder, recurrent episode with anxious distress F33.9 [place] [address] [address] Mar, Generalized anxiety disorder F41.1 and Major depressive disorder, recurrent episode with anxious distress F33.9 [place] [address] [address] Mar, [place] [address] [address] Mar, [place] [address] [address] Mar, [place] [address] [address] Mar, Asthma J45.909 and Fibromyal elvira M79.7 [place] [address] [address] Mar, Chronic kidney disease, 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 ; Vitamin D deficiency E55.9 and Essential (primary) hypertension I10 [place] [address] [address] Feb, [place] [address] [address] Feb, Dysuria R30.0 ; Mixed stress and urge urinary incontinence N39.46 ; Fibromyalgia M79.7 and Chronic kidney disease, stage IV (severe) N18.4 [place] [address] [address] Feb, Chronic kidney disease, 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 [place] [address] [address] Feb, Chronic kidney disease, 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 [place] [id number] [place] [phone] Feb, [facility] [address] [address] Feb, Vitamin D deficiency, unspec ified E55.9 [facility] [address] [place] [id number] [place] [phone] Jan, [facility] [address] [place] [id number] [place] [address] Jan, [facility] [address] [place] [id number] [place] [address] Dec, [facility] [address] [address] Dec, Chronic kidney disease, 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 [facility] [address] [address] Dec, Dysthymic disorder F34.1 and Generalized anxiety disorder F41.1 [facility] [address] [address] Dec, [facility] [address] [address] Dec, [facility] [address] [address] Dec, Dysthymic disorder F34.1 and Generalized anxiety disorder F41.1 [facility] [address] [place] [id number] [address] [place] [phone] 08 Dec, 2015 Dysuria R30.0 ; Chronic kidn ey disease, stage 4 (severe) N18.4 ; Hypertension I10 ; Dyspepsia R10.13 ; Yeast dermatitis B37.2 ; Palpitations R00.2 ; Hypothyroid E03.9 ; Functional diarrhea K59.1 and Other seasonal allergic rhinitis J30.2 [facility] [address] [facility] [id number] [address] [place] [phone] Dec, [facility] [address] [address] Nov, Dysuria R30.0 and Stress inc ontinence N39.3 [facility] [address] [address] Nov, [facility] [address] [address] Nov, [facility] [address] [address] Nov, Osteoarthritis of knees, jose ateral M17.0 [place] [address] [address] Nov, Dysthymic disorder F34.1 and Generalized anxiety disorder F41.1 [place] [address] [address] Nov, [place] [address] [address] Nov, [place] [address] [address] Nov, Urgency of urination R39.15 [place] [address] [address] Nov, [place] [address] [address] Nov, Chronic kidney disease, 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 [place] [address] [address] Oct, Hypertension I10 ; Coronary artery disease involving [place] coronary artery of [place] heart, angina presence unspecified I25.10 ; Palpitations R00.2 ; Hypothyroid E03.9 ; Right foot pain M79.671 ; Functional diarrhea K59.1 and Other seasonal allergic rhinitis J30.2 [place] [address] [place] [id number] [address] [place] [phone] Oct, Dysthymic disorder F34.1 and Generalized anxiety disorder F41.1 [facility] [address] [facility] [id number] [address] [place] [address] Sep, [facility] [address] [facility] [id number] [address] [place] [address] Sep, [facility] [address] [facility] [id number] [address] [place] [phone] Sep, [facility] [address] [facility] [id number] [address] [place] [phone] Sep, [place] [address] [facility] [id number] [address] [place] [phone] Sep, [place] [address] [facility] [id number] [address] [place] [address] Sep, Dysthymic disorder F34.1 and Generalized anxiety disorder F41.1 [place] [address] [place] [id number] [address] [place] [id number] Sep, Asthma with acute exacerbati on in adult J45.901 ; Dysuria R30.0 ; Chronic kidney disease, stage 4 (severe) N18.4 and History of anemia Z86.2 [place] [address] [place] [id number] [address] [place] [address] Sep, Generalized anxiety disorder F41.1 and Dysthymic disorder F34.1 [place] [address] [place] [id number] [address] [place] [address] August, Screening breast examination Z12.39 and Acute recurrent maxillary sinusitis J01.01 [place] [address] [place] [id number] [address] [place] [id number] August, Osteoarthritis of knees, jose ateral M17.0 [place] [address] [facility] [id number] [address] [place] [address] August, Chronic kidney disease, 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 ; Acute non- recurrent maxillary sinusitis J01.00 ; Urinary problem R39.89 ; Bowel habit changes R19.4 ; Functional diarrhea K59.1 and History of colon polyps Z86.010 [facility] [address] [id number] [address] [place] [id number] 29 Jul, 2015 Dysthymic disorder F34.1 and Generalized anxiety disorder F41.1 [facility] [address] [id number] [address] [place] [phone] Jul, [facility] [address] [id number] [address] [place] [address] Jul, Dysthymic disorder F34.1 ; G eneralized anxiety disorder F41.1 and retirement use of drug Z79.899 [place] [address] [facility] [id number] [address] [place] [phone] Jul, [place] [address] [facility] [id number] [address] [place] [phone] Jun, [facility] [address] [id number] [address] [place] [phone] Jun, [place] [address] [facility] [id number] [address] [place] [phone] May, [facility] [address] [id number] [address] [place] [address] May, Dysthymic disorder F34.1 and Generalized anxiety disorder F41.1 [facility] [address] [id number] [address] [place] [address] Apr, Kidney disease N28.9 [facility] [address] [facility] [id number] [address] [place] [address] Apr, Generalized anxiety disorder F41.1 and Dysthymic disorder F34.1 [facility] [address] [facility] [id number] [address] [place] [address] Apr, Chronic kidney disease, 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 [place] [address] [address] Apr, Generalized anxiety disorder F41.1 ; Major depression, recurrent F33.9 and Sleep disturbance G47.9 [place] [address] [address] Mar, Generalized anxiety disorder F41.1 and Dysthymic disorder F34.1 [place] [address] [address] Mar, Generalized anxiety disorder F41.1 ; Dysthymic disorder F34.1 and Insomnia G47.00 [place] [address] [address] Mar, [place] [address] [address] Mar, [address] [address] Mar, Osteoarthritis of knees, jose ateral M17.[address] [address] Mar, Hypertension I10 ; Hypothyro id E03.9 ; Dysthymic disorder F34.1 ; Chronic kidney disease, stage 4 (severe) N18.4 and Nausea & vomiting R11.2 [place] [address] [address] Mar, Generalized anxiety disorder F41.1 ; Dysthymic disorder F34.1 and Insomnia G47.00 [place] [address] [address] Mar, Dehydration E86.0 ; Chronic kidney disease, stage 4 (severe) N18.4 and Nausea & vomiting R11.2 [facility] [address] [address] Mar, Gastroenteritis K52.9 [place] [address] [address] Mar, [address] [address] Mar, [address] [address] Feb, Dysthymic disorder F34.1 and Generalized anxiety disorder F41.[address] [address] Jan, UTI (urinary tract infection ) N39.0 ; Asthma J45.909 ; Coronary artery disease involving [place] coronary artery of [place] heart, angina presence unspecified I25.10 ; Hypertension I10 ; Hypothyroid E03.9 ; Vitamin D deficiency E55.9 ; Insomnia G47.00 ; Palpitations R00.2 ; Depressed F32.9 ; Restless leg G25.81 and Anxiety F41.[address] [address] Jan, Dysthymic disorder F34.1 and Generalized anxiety disorder F41.[address] [address] Jan, [address] [address] Dec, [address] [address] 28 Dec, 2014 Alkalosis 276.3 ; Chronic ki dney disease, Stage IV (severe) 585.4 ; Hyperpotassemia 276.7 ; Secondary hyperparathyroidism, renal 588.81 ; Proteinuria 791.0 ; Unspecified vitamin D deficiency 268.9 ; Anemia in chronic kidney disease 285.21 ; Other and unspecified hyperlipidemia 272.4 ; Hypertension, essential, benign 401.1 and Chronic kidney disease (CKD), stage III (moderate) 585.[address] [address] Dec, [facility] [address] [facility] [id number] [place] [address] Dec, Depressive disorder, not els ewhere classified 311 and Generalized anxiety disorder 300.02 [facility] [address] [place] [id number] [place] [address] Dec, [facility] [address] [place] [id number] [place] [address] Dec, [facility] [address] [address] Nov, Depressive disorder, not els ewhere classified 311 and Generalized anxiety disorder 300.02 [place] [address] [address] Nov, Arthritis of both knees 716. [address] [address] Nov, PAF (paroxysmal atrial fibri llation) 427.31 ; CAD (coronary artery disease) 414.00 ; Chest pain 786.50 and Chronic kidney disease (CKD) stage G4/A1, severely decreased glomerular filtration rate (GFR) between 15-29 mL/min/1.73 square meter and albuminuria creatinine ratio less than 30 mg/g 585.4 [place] [address] [address] Oct, Coronary atherosclerosis of unspecified type of vessel, [place] or graft 414.00 ; Chronic kidney disease, Stage IV (severe) 585.4 ; Hypertension 401.9 and Edema 782.3 [place] [address] [address] Oct, Depressive disorder, not els ewhere classified 311 and Generalized anxiety disorder 300.02 [place] [address] [place] [id number] [place] [address] Oct, Depressive disorder, not els ewhere classified 311 and Generalized anxiety disorder 300.02 [place] [address] [address] Oct, [facility] [address] [address] Oct, [facility] [address] [address] Sep, [facility] [address] [address] Sep, Chronic kidney disease, Stag e IV (severe) 585.4 [facility] [address] [address] Sep, [facility] [address] [address] Sep, Coronary atherosclerosis of unspecified type of vessel, [place] or graft 414.00 ; Hypertension 401.9 ; Edema 782.3 and Hypothyroidism 244.[address] [address] Sep, Coronary atherosclerosis of unspecified type of vessel, [place] or graft 414.00 ; Hypertension 401.9 ; Fibromyalgia 729.1 ; Edema 782.3 ; Hypothyroidism 244.9 and Anemia 285.9 [place] [address] [address] Sep, Anxiety disorder, unspecifie d 300.00 and Depressive disorder, not elsewhere classified 311 [place] [address] [address] Sep, [facility] [address] [address] August, Generalized anxiety disorder 300.02 [place] [address] [address] August, Closed fracture of lateral m alleolus 824.2 [facility] [address] [address] Jul, [facility] [address] [address] 13 Jul, 2014 [facility] [address] [id number] [address] [place] [address], [place] [address] Jun, [facility] [address] [id number] [address] [place] [address], [place] [address] Jun, [facility] [address] [id number] [address] [place] [address], [place] [address] Jun, [facility] [address] [id number] [address] [place] [address], [place] [address] 13 Jun, 2014 [facility] [address] [id number] [address] [place] [address], [place] [address] Jun, [facility] [address] [id number] [address] [place] [address], [place] [address] Jun, [facility] [address] [id number] [address] [place] [address], [place] [address] 19 May, 2014 [facility] [address] [id number] [address] [place] [address], [place] [address] 19 May, 2014 [facility] [address] [id number] [address] [place] [address], [place] [address] 18 May, 2014 [facility] [address] [id number] [address] [place] [address], [place] [address] 18 May, 2014 [facility] [address] [id number] [address] [place] [address], [place] [address] 16 May, 2014 [facility] [address] [id number] [address] [place] [id number] 16 May, 2014 [facility] [address] [id number] [address] [place] [address], [place] [address] 13 May, 2014 [facility] [address] [id number] [address] [place] [address] 13 May, 2014 [facility] [address] [id number] [address] [place] [phone] May, [facility] [address] [id number] [address] [place] [address], [place] [address] May, [facility] [address] [id number] [address] [place] [address], [place] [address] Apr, [facility] [address] [id number] [address] [place] [address], [place] [address] Apr, [facility] [address] [id number] [address] [place] [address], [place] [address] Mar, [facility] [address] [id number] [address] [place] [address], [place] [address] Mar, [facility] [address] [id number] [address] [place] [address], [place] [address] Mar, [facility] [address] [id number] [address] [place] [address], [place] [address] Mar, [facility] [address] [id number] [address] [place] [address], [place] [id number] Mar, [facility] [address] [id number] [address] [place] [address], [place] [id number] Mar, [facility] [address] [id number] [address] [place] [address], [place] [id number] Mar, [facility] [address] [id number] [address] [place] [address], [place] [id number] Feb, [facility] [address] [id number] [address] [place] [address], [place] [id number] Feb, [facility] [address] [id number] [address] [place] [address], [place] [id number] Feb, [facility] [address] [id number] [address] [place] [address], [place] [id number] Jan, [facility] [address] [id number] [address] [place] [address], [place] [id number] Jan, [facility] [address] [id number] [address] [place] [address], [place] [id number] Jan, [facility] [address] [id number] [address] [place] [address], [place] [id number] Jan, [facility] [address] [id number] [address] [place] [address], [place] [id number] Jan, [facility] [address] [id number] [address] [place] [address], [place] [id number] Jan, [facility] [address] [id number] [address] [place] [address], [place] [id number] Jan, [facility] [address] [id number] [address] [place] [address], [place] [address] Jan, [facility] [address] [id number] [address] [place] [address], [place] [address] Jan, [facility] [address] [id number] [address] [place] [address], [place] [id number] Jan, [facility] [address] [id number] [address] [place] [address], [place] [address] Nov, [facility] [address] [id number] [address] [place] [address], [place] [address] Nov, [facility] [address] [id number] [address] [place] [address], [place] [address] Nov, [facility] [address] [id number] [address] [place] [address], [place] [id number] Oct, [facility] [address] [id number] [address] [place] [address], [place] [address] Oct, [facility] [address] [id number] [address] [place] [address], [place] [address] Oct, [facility] [address] [id number] [address] [place] [address], [place] [address] Oct, [facility] [address] [id number] [address] [place] [address], [place] [address] Oct, [facility] [address] [id number] [facility] [place] [address] 17 Oct, 2013 [facility] [address] [id number] [facility] [place] [address] Oct, [facility] [address] [id number] [address] [place] [address], [place] [address] Oct, [facility] [address] [id number] [address] [place] [address], [place] [address] Oct, [facility] [address] [id number] [address] [place] [address], [place] [address] Sep, [facility] [address] [id number] [address] [place] [address], [place] [address] Sep, [facility] [address] [id number] [address] [place] [address], [place] [address] Sep, [facility] [address] [id number] [address] [place] [address], [place] [id number] Sep, [facility] [address] [id number] [address] [place] [address], [place] [address] Sep, [facility] [address] [id number] [address] [place] [address], [place] [address] Sep, [facility] [address] [id number] [address] [place] [address], [place] [id number] Sep, [facility] [address] [id number] [address] [place] [address], [place] [id number] Sep, [facility] [address] [id number] [address] [place] [address], [place] [address] Sep, [facility] [address] [id number] [address] [place] [address], [place] [address] August, [facility] [address] [id number] [address] [place] [address], [place] [id number] August, [facility] [address] [id number] [address] [place] [address], [place] [address] August, [facility] [address] [id number] [address] [place] [address], [place] [address] August, [facility] [address] [id number] [address] [place] [address], [place] [address] August, [facility] [address] [id number] [address] [place] [address], [place] [address] August, [facility] [address] [id number] [address] [place] [address], [place] [address] Jul, [facility] [address] [id number] [address] [place] [address], [place] [id number] Jul, [facility] [address] [id number] [address] [place] [address], [place] [address] Jul, [facility] [address] [id number] [address] [place] [address], [place] [address] Jul, [facility] [address] [id number] [address] [place] [address], [place] [address] Jul, [facility] [address] [id number] [address] [place] [address], [place] [address] Jul, [facility] [address] [id number] [address] [place] [address], [place] [address] Jun, [facility] [address] [id number] [address] [place] [address], [place] [address] Jun, [facility] [address] [id number] [address] [place] [address], [place] [id number] May, [facility] [address] [id number] [address] [place] [address], [place] [address] May, [facility] [address] [id number] [address] [place] [address], [place] [address] May, [facility] [address] [id number] [address] [place] [address], [place] [id number] May, [facility] [address] [id number] [address] [place] [address], [place] [address] Apr, [facility] [address] [id number] [address] [place] [address], [place] [address] Apr, [facility] [address] [id number] [address] [place] [address], [place] [address] Mar, [facility] [address] [id number] [address] [place] [address], [place] [address] Mar, [facility] [address] [id number] [address] [place] [address], [place] [address] Mar, [facility] [address] [id number] [address] [place] [address], [place] [address] Mar, [facility] [address] [id number] [address] [place] [address], [place] [id number] Mar, [facility] [address] [id number] [address] [place] [address], [place] [address] Mar, [facility] [address] [id number] [address] [place] [address], [place] [address] Feb, [facility] [address] [id number] [address] [place] [address], [place] [address] Feb, [facility] [address] [id number] [address] [place] [address], [place] [id number] 14 Feb, 2013 [facility] [address] [id number] [address] [place] [address], [place] [address] Feb, [facility] [address] [id number] [address] [place] [address], [place] [address] Feb, [facility] [address] [id number] [address] [place] [address], [place] [id number] 05 Feb, 2013 [facility] [address] [id number] [address] [place] [address], [place] [address] Jan, [facility] [address] [id number] [address] [place] [address], [place] [id number] Jan, [facility] [address] [id number] [address] [place] [address], [place] [id number] Jan, [facility] [address] [id number] [address] [place] [address], [place] [address] Jan, [facility] [address] [id number] [address] [place] [address], [place] [address] Jan, [facility] [address] [id number] [address] [place] [address], [place] [address] Jan, [facility] [address] [id number] [address] [place] [address], [place] [address] Dec, [facility] [address] [id number] [address] [place] [address], [place] [address] Dec, [facility] [address] [id number] [address] [place] [address], [place] [address] Nov, [facility] [address] [id number] [address] [place] [address], [place] [address] Nov, [facility] [address] [id number] [address] [place] [address], [place] [id number] Oct, [facility] [address] [id number] [address] [place] [address], [place] [address] Oct, [facility] [address] [id number] [address] [place] [address], [place] [address] Oct, [facility] [address] [id number] [address] [place] [address], [place] [address] Oct, [facility] [address] [id number] [address] [place] [address], [place] [id number] Oct, [facility] [address] [id number] [address] [place] [address], [place] [address] Oct, [facility] [address] [id number] [address] [place] [address], [place] [address] Sep, [facility] [address] [id number] [address] [place] [address] [place] [id number] Sep, [facility] [address] [id number] [address] [place] [address], [place] [address] Sep, [facility] [address] [id number] [address] [place] [address], [place] [address] Sep, [facility] [address] [id number] [address] [place] [address], [place] [address] August, [facility] [address] [id number] [address] [place] [address], [place] [address] August, [facility] [address] [id number] [address] [place] [address], [place] [address] August, [facility] [address] [id number] [address] [place] [address], [place] [address] August, [facility] [address] [id number] [address] [place] [address], [place] [address] August, [facility] [address] [id number] [address] [place] [address], [place] [address] Jul, [facility] [address] [id number] [address] [place] [address], [place] [address] Jul, [facility] [address] [id number] [address] [place] [address], [place] [address] Jul, [facility] [address] [id number] [address] [place] [address], [place] [id number] Jul, [facility] [address] [id number] [address] [place] [address], [place] [id number] Jul, [facility] [address] [id number] [address] [place] [address], [place] [id number] Jul, [facility] [address] [id number] [address] [place] [address], [place] [address] Jul, [facility] [address] [id number] [address] [place] [address], [place] [address] Jul, [facility] [address] [id number] [address] [place] [address], [place] [address] Jul, [facility] [address] [id number] [address] [place] [address], [place] [address] Jul, [facility] [address] [id number] [place] [id number] Jun, [facility] [address] [id number] [address] [place] [address], [place] [address] Jun, [facility] [address] [id number] [address] [place] [address], [place] [id number] Jun, [facility] [address] [id number] [address] [place] [address], [place] [address] Jun, [facility] [address] [id number] [address] [place] [address], [place] [address] Jun, [facility] [address] [id number] [address] [place] [address], [place] [address] May, [facility] [address] [id number] [address] [place] [address], [place] [address] May, [facility] [address] [id number] [address] [place] [address], [place] [address] May, [facility] [address] [id number] [address] [place] [address], [place] [address] Apr, [facility] [address] [id number] [address] [place] [address], [place] [address] Apr, [facility] [address] [id number] [address] [place] [address], [place] [id number] Apr, [facility] [address] [id number] [address] [place] [address], [place] [address] Apr, [facility] [address] [id number] [address] [place] [address], [place] [id number] Apr, [facility] [address] [id number] [address] [place] [address] [address] Apr, [facility] [address] [id number] [address] [place] [address], [place] [address] Mar, [facility] [address] [id number] [address] [place] [address], [place] [id number] Mar, [facility] [address] [id number] [address] [place] [address], [place] [address] Mar, [facility] [address] [id number] [address] [place] [address], [place] [address] Mar, [facility] [address] [id number] [address] [place] [address], [place] [id number] Feb, [facility] [address] [id number] [address] [place] [address], [place] [address] Feb, [facility] [address] [id number] [address] [place] [address], [place] [address] Feb, [facility] [address] [id number] [address] [place] [address], [place] [address] Feb, [facility] [address] [id number] [address] [place] [address], [place] [id number] Feb, [facility] [address] [id number] [address] [place] [address], [place] [id number] Feb, [facility] [address] [id number] [address] [place] [address], [place] [address] Feb, [facility] [address] [id number] [address] [place] [id number] Feb, [facility] [address] [id number] [address] [place] [address], [place] [address] Feb, [facility] [address] [id number] [address] [place] [address], [place] [address] Feb, [facility] [address] [id number] [address] [place] [address], [place] [address] Feb, [facility] [address] [id number] [address] [place] [id number] 05 Feb, 2011 [facility] [address] [id number] [address] [place] [address], [place] [address] 05 Feb, 2012 [facility] [address] [id number] [address] [place] [address], [place] [address] Feb, [facility] [address] [id number] [address] [place] [id number] Feb, [facility] [address] [id number] [address] [place] [address], [place] [address] Feb, [facility] [address] [id number] [address] [place] [address], [place] [address] Jan, [facility] [address] [id number] [address] [place] [address], [place] [address] Jan, [facility] [address] [id number] [address] [place] [address], [place] [address] 31 Jan, 2012 [facility] [address] [id number] [address] [place] [id number] 31 Jan, 2012 [facility] [address] [id number] [address] [place] [address], [place] [address] 30 Jan, 2012 [facility] [address] [id number] [address] [place] [id number] Jan, [facility] [address] [id number] [address] [place] [address], [place] [id number] 25 Jan, 2012 [facility] [address] [id number] [address] [place] [address] 16 Jan, 2012 [facility] [address] [id number] [address] [place] [id number] 16 Jan, 2012 [facility] [address] [id number] [address] [place] [address] 15 Jan, 2012 [facility] [address] [id number] [address] [place] [id number] 15 Jan, 2012 [facility] [address] [id number] [address] [place] [address], [place] [address] Jan, [facility] [address] [id number] [address] [place] [address], [place] [id number] 26 Dec, 2011 [facility] [address] [id number] [address] [place] [address], [place] [id number] 26 Sep, 2011 [facility] [address] [id number] [address] [place] [address], [place] [address] 24 Dec, 2011 [facility] [address] [id number] [address] [place] [address], [place] [id number] 23 Dec, 2011 [facility] [address] [id number] [address] [place] [address], [place] [address] 22 Dec, 2011 [facility] [address] [id number] [address] [place] [address], [place] [id number] 21 Dec, 2011 [facility] [address] [id number] [address] [place] [address], [place] [id number] 20 Dec, 2011 [facility] [address] [id number] [address] [place] [address], [place] [address] 20 Dec, 2011 [facility] [address] [id number] [address] [place] [address], [place] [id number] 07 Dec, 2011 [facility] [address] [id number] [address] [place] [address], [place] [id number] 06 Sep, 2011 [facility] [address] [id number] [address] [place] [address], [place] [address] 06 Sep, 2011 [facility] [address] [id number] [address] [place] [address], [place] [id number] 05 Sep, 2011 [facility] [address] [id number] [address] [place] [address], [place] [id number] 23 Nov, 2011 [facility] [address] [id number] [address] [place] [address], [place] [address] 17 Nov, 2011 [facility] [address] [id number] [address] [place] [address], [place] [id number] Nov, [facility] [address] [id number] [address] [place] [address], [place] [address] Nov, [facility] [address] [id number] [address] [place] [address], [place] [address] Nov, [facility] [address] [id number] [address] [place] [address], [place] [id number] Nov, [facility] [address] [id number] [address] [place] [address], [place] [address] Nov, [facility] [address] [id number] [address] [place] [address], [place] [address] Nov, [facility] [address] [id number] [address] [place] [address], [place] [id number] Oct, [facility] [address] [id number] [address] [place] [address], [place] [id number] Oct, [facility] [address] [id number] [address] [place] [address], [place] [id number] Oct, [facility] [address] [id number] [address] [place] [address], [place] [id number] Oct, [facility] [address] [id number] [address] [place] [address], [place] [id number] Oct, [facility] [address] [id number] [address] [place] [address], [place] [id number] Oct, [facility] [address] [id number] [address] [place] [address], [place] [id number] Oct, [facility] [address] [id number] [address] [place] [address], [place] [id number] Sep, [facility] [address] [id number] [address] [place] [address], [place] [id number] Sep, [facility] [address] [id number] [address] [place] [address], [place] [id number] August, [facility] [address] [id number] [address] [place] [address], [place] [id number] August, [facility] [address] [id number] [address] [place] [address], [place] [id number] August, [facility] [address] [id number] [address] [place] [address], [place] [id number] August, [facility] [address] [id number] [address] [place] [address], [place] [id number] Jul, [facility] [address] [id number] [address] [place] [address], [place] [id number] Jul, [facility] [address] [id number] [address] [place] [address], [place] [id number] Jul, [facility] [address] [id number] [address] [place] [address], [place] [id number] Jul, [facility] [address] [id number] [address] [place] [address], [place] [id number] Jul, [facility] [address] [id number] [address] [place] [address], [place] [id number] Jul, [facility] [address] [id number] [address] [place] [address], [place] [id number] Jul, [facility] [address] [id number] [address] [place] [address], [place] [id number] Jul, [facility] [address] [id number] [address] [place] [address], [place] [id number] Jul, [facility] [address] [id number] [address] [place] [address], [place] [id number] 23 Jun, 2011 [facility] [address] [id number] [address] [place] [address], [place] [id number] 19 Jun, 2011 [facility] [address] [id number] [address] [place] [address], [place] [id number] 15 Jun, 2011 [facility] [address] [id number] [address] [place] [address], [place] [id number] 14 Jun, 2011 [facility] [address] [id number] [address] [place] [address], [place] [id number] Jun, [facility] [address] [id number] [address] [place] [address], [place] [id number] Jun, [facility] [address] [id number] [address] [place] [address], [place] [id number] Jun, [facility] [address] [id number] [address] [place] [address], [place] [id number] May, [facility] [address] [id number] [address] [place] [address], [place] [id number] May, [facility] [address] [id number] [address] [place] [address], [place] [id number] May, [facility] [address] [id number] [address] [place] [address], [place] [id number] May, [facility] [address] [id number] [address] [place] [address], [place] [id number] May, [facility] [address] [id number] [address] [place] [address], [place] [id number] Apr, [facility] [address] [id number] [address] [place] [address], [place] [id number] Apr, [facility] [address] [id number] [address] [place] [address], [place] [id number] Apr, [facility] [address] [id number] [address] [place] [address], [place] [id number] Apr, [facility] [address] [id number] [address] [place] [address], [place] [id number] Apr, [facility] [address] [id number] [address] [place] [address], [place] [id number] Mar, [facility] [address] [id number] [address] [place] [address], [place] [id number] Mar, [facility] [address] [id number] [address] [place] [address], [place] [id number] Mar, [facility] [address] [id number] [address] [place] [address], [place] [id number] Mar, [facility] [address] [id number] [address] [place] [address], [place] [id number] Mar, [facility] [address] [id number] [address] [place] [address], [place] [id number] Mar, [facility] [address] [id number] [address] [place] [address], [place] [id number] Mar, [facility] [address] [id number] [address] [place] [address], [place] [id number] Feb, [facility] [address] [id number] [address] [place] [address], [place] [id number] Feb, [facility] [address] [id number] [address] [place] [address], [place] [id number] Feb, [facility] [address] [id number] [address] [place] [address], [place] [id number] Feb, [facility] [address] [id number] [address] [place] [address], [place] [id number] Jan, [facility] [address] [id number] [address] [place] [address], [place] [id number] Jan, [facility] [address] [id number] [address] [place] [address], [place] [id number] Jan, [facility] [address] [id number] [address] [place] [address], [place] [id number] Jan, [facility] [address] [id number] [address] [place] [address], [place] [id number] Nov, [facility] [address] [id number] [address] [place] [address], [place] [id number] 30 Mar, 2010 [facility] [address] [id number] [address] [place] [address], [place] [id number] Mar, [facility] [address] [id number] [address] [place] [id number] Mar, [facility] [address] [id number] [address] [place] [id number] Mar, [facility] [address] [id number] [address] [place] [id number] Mar, [facility] [address] [id number] [address] [place], [place] [id number] Mar, [facility] [address] [id number] [address] [place] [phone] Feb, [facility] [address] [id number] [address] [place] [phone] Feb, [facility] [address] [facility] [id number] [address] [place] [id number] Jan, [facility] [address] [facility] [id number] [address] [place] [phone] Jan, [facility] [address] [facility] [id number] [address] [place] [phone] Jan, IMMUNIZATIONS No Known Immunizations SOCIAL HISTORY [...] History CPAP Noncompliance_ Dr. Madden advises a [employer]ten[employer] driving. Medical History Bacterial meningitis 12/2016 Medical [...] & 2007 Surgical History Bladder surgery [facility] 03/2016 Surgical History Neurotransmitter placed 10/2017 Surgical History retninal repair 12/31/2017 Surgical History cataract surgery 2018 Surgical History cataract surgery 2019 Surgical History SCS trial x7 days 2018 Surgical History SCS implant removed. 2019 Hospitalization History Surgeries Only Hospitalization History bacterial meningitis December 2016 Hospitalization History [facility] psych for SI 1988 Hospitalization History [facility]-Altered mental status 05/2017 Hospitalization History sepsis, UTI, headache 08/03/2018-
--- OUTSIDE RECORDS SUMMARY | 2019-08-01 10:11 | XMS REPORT ---
Author Author Lola Tyson Doctor Organization [facility] Address Unknown Phone Unavailable Care Team Providers Care Therapy Aide Name Role Phone Migration, Doctor Unavailable Unavailable PROBLEMS Type Condition ICD9-CM Code LEC84-PJ Code Onset Dates Condition S tatus SNOMED Code Problem Hypothyroid E03.9 Active 24839905 Problem Asthma J45.909 Active 115658752 Problem Insomnia G47.00 Active 466229517 Problem Depressed F32.9 Active 65126436 Problem Palpitations R00.2 Active 8076995 2 Problem Functional diarrhea K59.1 Active 68908901 Problem Chronic kidney disease, stage 4 (severe) N18.4 Active 260538653 Problem Degenerative tear of medial meniscus of left knee M23.204 Active 159421544 Problem Dysthymic disorder F34.1 Active 7 0206043 Problem Primary osteoarthritis of left knee M17.12 Active 583036875 Problem Generalized anxiety disorder F41.1 A ctive 90003355 Problem Restless leg G25.81 Active 1183222 8 Problem Coronary artery disease invo lving [place] coronary artery of [place] heart, angina presence unspecified I25.10 Active 8931676677903 Problem Hypokalemia E87.6 Active 28700954 Problem Other seasonal allergic rhinitis J30.2 Active 584383130 Problem Mixed stress and urge urinary incontinence N39.46 Active 998410040 Problem Fibromyalgia M79.7 Active 8051124 05 Problem Essential (primary) hypertension I10 Active 17973566 Problem Long-term use of high-risk medication Z79.899 Active 076981029 Problem Vitamin D deficiency E55.9 Active 63813205 Problem Anemia in chronic kidney disease D63.1 Active 328678437280955 Problem Low back pain M54.5 Active 001929 009 Problem Chronic kidney disease, unspecified N18.9 Active 999396263 Problem Abnormal chest CT R93.8 Active 44 0624821 Problem Mood disorder F39 Active 246338 05 Problem Stage 3 chronic kidney disease N18.3 Active 881491589 Problem Body mass index (BMI) of 40.0-44.9 in adult Z68.41 Active 178044316 Problem Other chronic pain G89.29 Active 8 6403180 Problem Asthma with acute exacerbation in adult J45.901 Active 646951705 Problem Major depressive disorder, recurrent, moderate F33 .1 Active 304438361 Problem History of colon polyps Z86.010 Active 314639704 Problem History of anemia Z86.2 Active 27 1247322 Problem Seasonal allergic rhinitis due to pollen J30.1 Active 83806760 Problem Restless leg syndrome G25.81 Active 31185618 Problem Chronic pain syndrome G89.4 Active 917397467 Problem Perimenopausal vasomotor symptoms N95.1 Active 627649114 ALLERGIES No Information ENCOUNTERS Encounter Location Date Diagnosis [facility] [address] [facility] [id number] [address] [place] [phone] Dec, [facility] [address] [facility] [id number] [address] [place] [phone] Nov, [facility] [address] [facility] [id number] [address] [place] [phone] Nov, [facility] [address] [facility] [id number] [address] [place] [phone] Nov, Chronic pain syndrome G89.4 [facility] [address] [facility] [id number] [address] [place] [phone] Nov, Restless leg syndrome G25.81 [facility] [address] [facility] [id number] [address] [place] [phone] Nov, Pain in right shoulder M25.5 11 ; Restless leg syndrome G25.81 ; Other chronic pain G89.29 ; Screening for breast cancer Z12.39 ; Insomnia G47.00 and Morbid obesity E66.01 [facility] [address] [facility] [id number] [address] [place] [phone] Nov, [facility] [address] [facility] [id number] [address] [place] [phone] Oct, Major depressive disorder, r ecurrent, moderate F33.1 ; Generalized anxiety disorder F41.1 and Dysthymic disorder F34.1 [facility] [address] [id number] [address] [place] [phone] Oct, [facility] [address] [id number] [address] [place] [phone] Oct, Cellulitis of left lower ext remity L03.116 and Morbid obesity E66.01 [facility] [address] [id number] [address] [place] [id number] Oct, [facility] [address] [id number] [address] [place] [id number] Oct, [facility] [address] [id number] [address] [place] [phone] Oct, Generalized anxiety disorder F41.1 and Major depressive disorder, recurrent episode with anxious distress F33.9 [facility] [address] [id number] [address] [place] [id number] Oct, [facility] [address] [id number] [address] [place] [phone] Oct, Chronic pain syndrome G89.4 [facility] [address] [id number] [address] [place] [phone] Oct, Chronic pain syndrome G89.[address] [facility] [address] [id number] [address] [place] [phone] Oct, UTI symptoms R39.9 ; Acute c ystitis without hematuria N30.00 and Morbid obesity E66.01 [facility] [address] [id number] [address] [place] [phone] Oct, [facility] [address] [id number] [address] [place] [phone] Oct, Chronic pain syndrome G89.4 [facility] [address] [id number] [address] [place] [phone] Sep, [facility] [address] [id number] [address] [place] [phone] Sep, Generalized anxiety disorder F41.1 and Major depressive disorder, recurrent episode with anxious distress F33.9 [facility] [address] [facility] [id number] [address] [place] [phone] 17 Sep, 2018 Chronic kidney disease, 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 [facility] [address] [id number] [address] [place] [phone] Sep, Fibromyalgia M79.7 and Chron ic pain syndrome G89.4 [facility] [address] [id number] [address] [place] [phone] Sep, [address] [phone] Sep, Chronic pain syndrome G89.4 [facility] [address] [id number] [address] [place] [phone] Sep, [place] [address] [facility] [id number] [address] [place] [phone] Sep, Chronic pain syndrome G89.4 ; Fibromyalgia M79.7 and Morbid obesity E66.01 [place] [address] [facility] [id number] [address] [place] [phone] August, Generalized anxiety disorder F41.1 and Major depressive disorder, recurrent episode with anxious distress F33.9 [facility] [address] [facility] [id number] [address] [place] [phone] August, Fibromyalgia M79.7 [facility] [address] [facility] [id number] [address] [place] [phone] August, Restless leg syndrome G25.81 ; Vitamin D deficiency E55.9 ; Urinary tract infection without hematuria, site unspecified N39.0 ; Pain in right shoulder M25.511 ; Other chronic pain G89.29 ; Biceps tendinitis on right M75.21 and Morbid obesity E66.01 [facility] [address] [id number] [address] [place] [id number] Jul, Urinary tract infection with out hematuria, site unspecified N39.0 and Morbid obesity E66.01 [facility] [address] [place] [id number] [address] [place] [phone] Jul, [facility] [address] [place] [id number] [address] [place] [phone] Jul, [facility] [address] [place] [id number] [place] [phone] Jul, Fibromyalgia M79.7 [facility] [address] [place] [id number] [place] [phone] Jul, Acute pain of right shoulder M25.511 [place] [address] [place] [id number] [place] [phone] Jul, Acute pain of right shoulder M25.511 and Morbid obesity E66.01 [place] [address] [phone] Jun, [place] [address] [phone] Jun, Generalized anxiety disorder F41.1 and Major depressive disorder, recurrent episode with anxious distress F33.9 [place] [address] [place] [id number] [address] [place] [phone] Jun, [facility] [address] [place] [id number] [address] [place] [phone] Jun, Fibromyalgia M79.[address] [facility] [address] [place] [id number] [address] [place] [phone] Jun, Acute pain of right shoulder M25.511 ; Acute pain of right hip M25.551 and Morbid obesity E66.01 [facility] [address] [place] [id number] [address] [place] [phone] May, Burning with urination R30.0 ; Vaginal discharge N89.8 ; Chronic kidney disease, stage 4 (severe) N18.4 ; Body mass index (BMI) of 40.0-44.9 in adult Z68.41 and Morbid obesity E66.01 [facility] [address] [id number] [address] [place] [phone] 07 May, 2018 Fibromyalgia M79.7 [facility] [address] [facility] [id number] [address] [place] [phone] 06 May, 2018 Generalized anxiety disorder F41.1 and Major depressive disorder, recurrent episode with anxious distress F33.9 [facility] [address] [facility] [id number] [address] [place] [id number] 24 Apr, 2018 [facility] [address] [facility] [id number] [address] [place] [phone] 08 Apr, 2018 Fibromyalgia M79.7 [facility] [address] [facility] [id number] [address] [place] [phone] 14 Mar, 2018 Acute UTI N39.0 and Dysuria R30.0 [facility] [address] [facility] [id number] [address] [place] [phone] Mar, Fibromyalgia M79.7 [facility] [address] [facility] [id number] [address] [place] [phone] 15 Feb, 2018 [facility] [address] [facility] [id number] [address] [place] [phone] Feb, [facility] [address] [facility] [id number] [address] [place] [phone] Feb, [facility] [address] [facility] [id number] [address] [place] [phone] Feb, Fibromyalgia M79.7 [facility] [address] [facility] [id number] [address] [place] [phone] 08 Feb, 2018 Complicated UTI (urinary tra ct infection) N39.0 [facility] [address] [facility] [id number] [address] [place] [phone] 07 Feb, 2018 [facility] [address] [facility] [id number] [address] [place] [phone] Jan, Generalized anxiety disorder F41.1 and Major depressive disorder, recurrent episode with anxious distress F33.[address] [facility] [address] [id number] [address] [place] [phone] Jan, Acute conjunctivitis of left eye, unspecified acute conjunctivitis type H10.32 [facility] [address] [id number] [address] [place] [phone] Jan, [facility] [address] [facility] [id number] [address] [place] [phone] Jan, Acute non-recurrent maxillar y sinusitis J01.00 ; Dysuria R30.0 ; Perimenopausal vasomotor symptoms N95.1 and Fibromyalgia M79.7 [facility] [address] [id number] [address] [place] [phone] 28 Dec, 2017 Vitamin D deficiency E55.9 [facility] [address] [id number] [address] [place] [phone] Dec, Vitamin D deficiency E55.9 [facility] [address] [id number] [address] [place] [phone] 24 Dec, 2017 Vitamin D deficiency E55.9 [facility] [address] [id number] [address] [place] [phone] Dec, [facility] [address] [id number] [address] [place] [phone] Dec, Fibromyalgia M79.7 [facility] [address] [id number] [address] [place] [phone] Nov, [facility] [address] [id number] [address] [place] [phone] Nov, [facility] [address] [id number] [address] [place] [phone] Nov, [facility] [address] [id number] [address] [place] [phone] Nov, Fibromyalgia M79.7 ; Vision changes H53.9 ; Chest wall pain R07.89 and Chronic pain syndrome G89.4 [facility] [address] [id number] [address] [place] [phone] Nov, [facility] [address] [id number] [address] [place] [phone] Nov, Rash of hands R21 [facility] [address] [id number] [address] [place] [phone] Nov, Generalized anxiety disorder F41.1 and Major depressive disorder, recurrent episode with anxious distress F33.9 [facility] [address] [id number] [address] [place] [phone] Nov, Fibromyalgia M79.7 [facility] [address] [id number] [address] [place] [phone] Nov, Complicated UTI (urinary tra ct infection) N39.0 [place] [address] [id number] [address] [place] [id number] Oct, [facility] [address] [id number] [address] [place] [phone] Oct, Generalized anxiety disorder F41.1 and Major depressive disorder, recurrent episode with anxious distress F33.9 [facility] [address] [id number] [address] [place] [phone] Oct, [facility] [address] [id number] [address] [place] [phone] Oct, Fibromyalgia M79.7 [facility] [address] [facility] [id number] [address] [place] [phone] Sep, Restless leg syndrome G25.81 and Restless leg G25.81 [facility] [address] [id number] [address] [place] [phone] Sep, [facility] [address] [facility] [id number] [address] [place] [phone] Sep, Seasonal allergic rhinitis d ue to pollen J30.1 ; Screening for breast cancer Z12.31 ; Chest pain at rest R07.9 ; Restless leg syndrome G25.81 ; Essential (primary) hypertension I10 and Depressed F32.9 [facility] [address] [facility] [id number] [address] [place] [phone] August, Fibromyalgia M79.7 [facility] [address] [facility] [id number] [address] [place] [phone] August, [facility] [address] [facility] [id number] [address] [place] [phone] August, [facility] [address] [id number] [address] [place] [phone] August, Abnormal chest CT R93.8 [place] [address] [facility] [id number] [address] [place] [phone] August, Generalized anxiety disorder F41.1 and Major depressive disorder, recurrent episode with anxious distress F33.9 [place] [address] [facility] [id number] [address] [place] [phone] August, Abnormal chest CT R93.8 [place] [address] [facility] [id number] [address] [place] [phone] Jul, [place] [address] [facility] [id number] [address] [place] [phone] Jul, Chronic kidney disease, 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 [place] [address] [facility] [id number] [address] [place] [phone] Jul, [place] [address] [facility] [id number] [address] [place] [phone] Jul, Restless leg G25.81 ; Mixed stress and urge urinary incontinence N39.46 and Fibromyalgia M79.7 [facility] [address] [facility] [id number] [address] [place] [phone] Jul, Chronic kidney disease, 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 [facility] [address] [facility] [id number] [address] [place] [phone] Jun, Orthostatic hypotension I95. 1 ; Chronic kidney disease, stage 4 (severe) N18.4 ; Chest wall discomfort R07.89 and Body mass index (BMI) of 40.0- 44.9 in adult Z68.41 [facility] [address] [facility] [id number] [address] [place] [phone] Jun, [facility] [address] [facility] [id number] [address] [place] [phone] Jun, Orthostatic hypotension I95. 1 [facility] [address] [facility] [id number] [address] [place] [phone] Jun, [facility] [address] [facility] [id number] [place] [phone] Jun, Orthostatic hypotension I95. 1 ; Dysuria R30.0 and Acute cystitis without hematuria N30.00 [facility] [address] [place] [id number] [address] [place] [phone] Jun, [facility] [address] [facility] [id number] [address] [place] [phone] Jun, Chronic kidney disease, 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 [place] [address] [place] [id number] [address] [place] [phone] Jun, Fibromyalgia M79.7 [facility] [address] [place] [id number] [address] [place] [phone] Jun, [facility] [address] [place] [id number] [address] [place] [phone] Jun, [facility] [address] [facility] [id number] [address] [place] [phone] May, Abnormal chest [address] R93.8 and Stage 3 chronic kidney disease N18.3 [facility] [address] [facility] [id number] [address] [place] [phone] May, Chronic kidney disease, 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 [facility] [address] [place] [id number] [address] [place] [phone] May, Chronic kidney disease, 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 [facility] [address] [id number] [address] [place] [phone] May, Abnormal chest [address] R93.8 [facility] [address] [id number] [address] [place] [phone] May, [facility] [address] [id number] [address] [place] [phone] May, [place] [address] [id number] [address] [place] [phone] May, Generalized anxiety disorder F41.1 and Major depressive disorder, recurrent episode with anxious distress F33.9 [facility] [address] [id number] [address] [place] [phone] May, Mood disorder F39 [place] [address] [id number] [address] [place] [phone] Apr, [place] [address] [id number] [address] [place] [phone] Apr, Infected skin lesion L08.9 a nd Muscle strain of right shoulder region, initial encounter S46.911A [facility] [address] [id number] [address] [place] [phone] Apr, Generalized anxiety disorder F41.1 and Major depressive disorder, recurrent episode with anxious distress F33.9 [place] [address] [id number] [address] [place] [phone] Apr, [facility] [address] [facility] [id number] [address] [place] [phone] Apr, Recent urinary tract infecti on Z87.440 and Hypothyroid E03.9 [facility] [address] [id number] [address] [place] [phone] Apr, Generalized anxiety disorder F41.1 and Major depressive disorder, recurrent episode with anxious distress F33.9 [facility] [address] [id number] [address] [place] [phone] Apr, Recent urinary tract infecti on Z87.440 [facility] [address] [id number] [address] [place] [phone] 28 Mar, [address] [facility] [address] [id number] [address] [place] [phone] 26 Mar, 2017 Dysuria R30.0 ; Acute cystit is without hematuria N30.00 and BMI 40.0-44.9, adult Z68.41 [place] [address] [id number] [address] [place] [phone] 14 Mar, 2017 [facility] [address] [id number] [address] [place] [phone] Mar, [facility] [address] [facility] [id number] [address] [place] [phone] Mar, Generalized anxiety disorder F41.1 and Major depressive disorder, recurrent episode with anxious distress F33.9 [facility] [address] [id number] [address] [place] [phone] 29 Feb, 2017 Conjunctivitis, bacterial H1 0.9 [place] [address] [id number] [address] [place] [phone] 27 Feb, [address] [facility] [address] [id number] [address] [place] [phone] 15 Feb, 2017 Conjunctivitis, bacterial H1 0.9 [facility] [address] [id number] [address] [place] [phone] 15 Feb, [address] [facility] [address] [id number] [address] [place] [phone] 10 Feb, 2017 Dysuria R30.0 ; Acute cystit is N30.00 and BMI 40.0-44.9, adult Z68.41 [facility] [address] [id number] [address] [place] [phone] Feb, [facility] [address] [facility] [id number] [address] [place] [phone] Feb, Generalized anxiety disorder F41.1 and Major depressive disorder, recurrent episode with anxious distress F33.9 [facility] [address] [facility] [id number] [address] [place] [phone] Feb, Mood disorder F39 and BMI 40 .0-44.9, adult Z68.41 [place] [address] [place] [id number] [address] [place] [phone] Jan, [place] [address] [place] [id number] [address] [place] [address] [id number] Jan, [place] [address] [place] [id number] [place] [phone] Jan, Hypothyroid E03.9 [place] [address] [place] [id number] [address] [place] [phone] Jan, [place] [address] [place] [id number] [address] [place] [phone] Jan, Chronic kidney disease, unsp ecified N18.9 ; Hypokalemia E87.6 ; Essential (primary) hypertension I10 ; Fibromyalgia M79.7 ; Coronary artery disease involving [place] coronary artery of [place] heart, angina presence unspecified I25.10 ; Hypothyroid E03.9 and Encounter for immunization Z23 [place] [address] [place] [id number] [address] [place] [phone] Jan, Hypothyroid E03.9 [place] [address] [facility] [id number] [address] [place] [phone] Jan, [place] [address] [place] [id number] [address] [place] [phone] Dec, Vitamin D deficiency E55.9 [facility] [address] [facility] [id number] [address] [place] [phone] Dec, Primary osteoarthritis of le ft knee M17.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 [facility] [address] [id number] [address] [place] [id number] 19 Dec, 2016 Fibromyalgia M79.7 [facility] [address] [id number] [address] [place] [id number] 18 Dec, 2016 Mood disorder F39 [facility] [address] [id number] [address] [place] [id number] 13 Dec, 2016 [facility] [address] [id number] [address] [place] [phone] 13 Dec, 2016 Generalized anxiety disorder F41.1 and Major depressive disorder, recurrent episode with anxious distress F33.9 [facility] [address] [id number] [address] [place] [id number] 11 Dec, 2016 [facility] [address] [id number] [address] [place] [phone] 08 Dec, 2016 Streptococcal meningitis G00 .2 [facility] [address] [id number] [address] [place] [phone] 07 Dec, 2016 Streptococcal meningitis G00 .2 [facility] [address] [id number] [address] [place] [phone] 07 Dec, 2016 [facility] [address] [id number] [address] [place] [phone] 06 Dec, 2016 Streptococcal meningitis G00 .2 [facility] [address] [id number] [address] [place] [phone] 06 Dec, 2016 [facility] [address] [id number] [address] [place] [phone] 06 Dec, 2016 Major depressive disorder, r ecurrent episode with anxious distress F33.9 [facility] [address] [id number] [address] [place] [phone] Nov, Fever, unspecified fever cau se R50.9 [facility] [address] [id number] [address] [place] [phone] Nov, [facility] [address] [id number] [address] [place] [phone] Nov, Hypothyroid E03.9 [facility] [address] [facility] [id number] [address] [place] [phone] Nov, Generalized anxiety disorder F41.1 and Major depressive disorder, recurrent episode with anxious distress F33.9 [facility] [address] [id number] [address] [place] [phone] Nov, [facility] [address] [id number] [address] [place] [id number] Oct, Dental examination Z01.20 [facility] [address] [facility] [id number] [address] [place] [phone] Oct, Generalized anxiety disorder F41.1 and Major depressive disorder, recurrent episode with anxious distress F33.9 [facility] [address] [facility] [id number] [address] [place] [phone] Oct, Chronic kidney disease, stag e 4 (severe) N18.4 [facility] [address] [facility] [id number] [address] [place] [id number] Oct, [facility] [address] [facility] [id number] [address] [place] [phone] Oct, Fibromyalgia M79.7 [facility] [address] [facility] [id number] [address] [place] [phone] Oct, [facility] [address] [facility] [id number] [address] [place] [phone] Oct, Generalized anxiety disorder F41.1 ; Major depressive disorder, recurrent episode with anxious distress F33.9 and Bipolar disorder, current episode manic without psychotic features F31.10 [facility] [address] [facility] [id number] [address] [place] [phone] Sep, [facility] [address] [facility] [id number] [address] [place] [phone] Sep, [facility] [address] [facility] [id number] [address] [place] [phone] 15 Sep, 2016 Vitamin D deficiency E55.9 [place] [address] [facility] [id number] [address] [place] [phone] 14 Sep, 2016 Vitamin D deficiency E55.9 [place] [address] [facility] [id number] [address] [place] [phone] Sep, [place] [address] [place] [id number] [address] [place] [phone] Sep, Chronic kidney disease, stag e 4 (severe) N18.4 ; Hypothyroid E03.9 ; Restless leg G25.81 ; Fibromyalgia M79.7 ; Essential (primary) hypertension I10 ; Vitamin D deficiency E55.9 ; Dyspepsia R10.13 ; Anemia in chronic kidney disease D63.1 ; Chronic kidney disease, unspecified N18.9 ; Coronary artery disease involving [place] coronary artery of [place] heart, angina presence unspecified I25.10 ; Screening breast examination Z12.39 and Low back pain M54.5 [place] [address] [facility] [id number] [address] [place] [phone] August, Generalized anxiety disorder F41.1 and Major depressive disorder, recurrent episode with anxious distress F33.9 [place] [address] [facility] [id number] [address] [place] [phone] August, Generalized anxiety disorder F41.1 and Major depressive disorder, recurrent episode with anxious distress F33.9 [place] [address] [facility] [id number] [address] [place] [phone] August, Fibromyalgia M79.7 [place] [address] [facility] [id number] [address] [place] [phone] Jul, Generalized anxiety disorder F41.1 and Major depressive disorder, recurrent episode with anxious distress F33.9 [place] [address] [facility] [id number] [address] [place] [phone] Jul, Fibromyalgia M79.7 [place] [address] [place] [id number] [address] [place] [phone] Jul, Generalized anxiety disorder F41.1 [place] [address] [phone] May, [place] [address] [address] May, Hypothyroid E03.9 [place] [address] [address] May, Chronic kidney disease, stag e 4 (severe) N18.4 ; Hypothyroid E03.9 ; Restless leg G25.81 ; Fibromyalgia M79.7 ; Essential (primary) hypertension I10 ; Vitamin D deficiency E55.9 ; Dyspepsia R10.13 ; Acute non-recurrent maxillary sinusitis J01.00 ; Anemia in chronic kidney disease D63.1 ; Chronic kidney disease, unspecified N18.9 and Coronary artery disease involving [place] coronary artery of [place] heart, angina presence unspecified I25.10 [place] [address] [address] May, Vitamin D deficiency, unspec ified E55.9 [place] [address] [address] May, Generalized anxiety disorder F41.1 and Major depressive disorder, recurrent episode with anxious distress F33.9 [place] [address] [place] [id number] [address] [place] [phone] Apr, Pain in right knee M25.561 a nd Pain in left knee M25.562 [place] [address] [address] Apr, [place] [address] [address] Apr, [place] [address] [place] [id number] [address] [place] [phone] Apr, [place] [address] [address] Mar, Generalized anxiety disorder F41.1 and Major depressive disorder, recurrent episode with anxious distress F33.9 [place] [address] [address] Mar, Generalized anxiety disorder F41.1 and Major depressive disorder, recurrent episode with anxious distress F33.9 [place] [address] [address] Mar, [place] [address] [address] Mar, [place] [address] [address] Mar, [place] [address] [address] Mar, Asthma J45.909 and Fibromyal elvira M79.7 [place] [address] [address] Mar, Chronic kidney disease, stag e 4 (severe) N18.4 ; Vitamin D deficiency E55.9 and Essential (primary) hypertension I10 [place] [address] [address] Feb, [place] [address] [address] Feb, Dysuria R30.0 ; Mixed stress and urge urinary incontinence N39.46 ; Fibromyalgia M79.7 and Chronic kidney disease, stage IV (severe) N18.4 [place] [address] [address] Feb, Chronic kidney disease, 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 [place] [address] [address] Feb, Chronic kidney disease, stag e 4 (severe) N18.4 [place] [id number] [place] [phone] Feb, [facility] [address] [address] Feb, Vitamin D deficiency, unspec ified E55.9 [facility] [address] [place] [id number] [place] [phone] Jan, [facility] [address] [place] [id number] [place] [phone] Jan, [facility] [address] [place] [id number] [place] [phone] Dec, [facility] [address] [address] Dec, Chronic kidney disease, 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 [facility] [address] [address] Dec, Dysthymic disorder F34.1 and Generalized anxiety disorder F41.1 [facility] [address] [address] Dec, [facility] [address] [address] Dec, [facility] [address] [address] Dec, Dysthymic disorder F34.1 and Generalized anxiety disorder F41.1 [facility] [address] [place] [id number] [address] [place] [phone] 08 Dec, 2015 Dysuria R30.0 ; Chronic kidn ey disease, stage 4 (severe) N18.4 ; Hypertension I10 ; Dyspepsia R10.13 ; Yeast dermatitis B37.2 ; Palpitations R00.2 ; Hypothyroid E03.9 ; Functional diarrhea K59.1 and Other seasonal allergic rhinitis J30.2 [facility] [address] [facility] [id number] [address] [place] [phone] Dec, [facility] [address] [address] Nov, Dysuria R30.0 and Stress inc ontinence N39.3 [facility] [address] [address] Nov, [facility] [address] [address] Nov, [facility] [address] [address] Nov, Osteoarthritis of knees, jose ateral M17.0 [place] [address] [address] Nov, Dysthymic disorder F34.1 and Generalized anxiety disorder F41.1 [place] [address] [address] Nov, [place] [address] [address] Nov, [place] [address] [address] Nov, Urgency of urination R39.15 [place] [address] [address] Nov, [place] [address] [address] Nov, Chronic kidney disease, stag e 4 (severe) N18.4 [place] [address] [address] Oct, Hypertension I10 ; Coronary artery disease involving [place] coronary artery of [place] heart, angina presence unspecified I25.10 ; Palpitations R00.2 ; Hypothyroid E03.9 ; Right foot pain M79.671 ; Functional diarrhea K59.1 and Other seasonal allergic rhinitis J30.2 [place] [address] [place] [id number] [address] [place] [address] Oct, Dysthymic disorder F34.1 and Generalized anxiety disorder F41.1 [facility] [address] [facility] [id number] [address] [place] [phone] Sep, [facility] [address] [facility] [id number] [address] [place] [phone] Sep, [facility] [address] [facility] [id number] [address] [place] [phone] Sep, [facility] [address] [facility] [id number] [address] [place] [phone] Sep, [place] [address] [facility] [id number] [address] [place] [address] Sep, [place] [address] [facility] [id number] [address] [place] [phone] Sep, Dysthymic disorder F34.1 and Generalized anxiety disorder F41.1 [place] [address] [place] [id number] [address] [place] [address] Sep, Asthma with acute exacerbati on in adult J45.901 ; Dysuria R30.0 ; Chronic kidney disease, stage 4 (severe) N18.4 and History of anemia Z86.2 [place] [address] [place] [id number] [address] [place] [phone] Sep, Generalized anxiety disorder F41.1 and Dysthymic disorder F34.1 [place] [address] [place] [id number] [address] [place] [address] August, Screening breast examination Z12.39 and Acute recurrent maxillary sinusitis J01.01 [place] [address] [place] [id number] [address] [place] [id number] August, Osteoarthritis of knees, jose ateral M17.0 [place] [address] [facility] [id number] [address] [place] [id number] August, Chronic kidney disease, stag e 4 (severe) N18.4 ; Acute non- recurrent maxillary sinusitis J01.00 ; Urinary problem R39.89 ; Bowel habit changes R19.4 ; Functional diarrhea K59.1 and History of colon polyps Z86.010 [facility] [address] [id number] [address] [place] [phone] 29 Jul, 2015 Dysthymic disorder F34.1 and Generalized anxiety disorder F41.1 [facility] [address] [id number] [address] [place] [id number] Jul, [facility] [address] [id number] [address] [place] [phone] Jul, Dysthymic disorder F34.1 ; G eneralized anxiety disorder F41.1 and [facility] use of drug Z79.899 [place] [address] [facility] [id number] [address] [place] [phone] Jul, [place] [address] [facility] [id number] [address] [place] [phone] Jun, [facility] [address] [id number] [address] [place] [phone] Jun, [place] [address] [facility] [id number] [address] [place] [id number] May, [facility] [address] [id number] [address] [place] [phone] May, Dysthymic disorder F34.1 and Generalized anxiety disorder F41.1 [facility] [address] [id number] [address] [place] [address] Apr, Kidney disease N28.9 [facility] [address] [facility] [id number] [address] [place] [phone] Apr, Generalized anxiety disorder F41.1 and Dysthymic disorder F34.1 [facility] [address] [facility] [id number] [address] [place] [phone] Apr, Chronic kidney disease, stag e 4 (severe) N18.4 [place] [address] [address] Apr, Generalized anxiety disorder F41.1 ; Major depression, recurrent F33.9 and Sleep disturbance G47.9 [place] [address] [address] Mar, Generalized anxiety disorder F41.1 and Dysthymic disorder F34.1 [place] [address] [address] Mar, Generalized anxiety disorder F41.1 ; Dysthymic disorder F34.1 and Insomnia G47.00 [place] [address] [address] Mar, [place] [address] [address] Mar, [address] [address] Mar, Osteoarthritis of knees, jose ateral M17.[address] [address] Mar, Hypertension I10 ; Hypothyro id E03.9 ; Dysthymic disorder F34.1 ; Chronic kidney disease, stage 4 (severe) N18.4 and Nausea & vomiting R11.2 [place] [address] [address] Mar, Generalized anxiety disorder F41.1 ; Dysthymic disorder F34.1 and Insomnia G47.00 [place] [address] [address] Mar, Dehydration E86.0 ; Chronic kidney disease, stage 4 (severe) N18.4 and Nausea & vomiting R11.[address] [facility] [address] [address] Mar, Gastroenteritis K52.9 [place] [address] [address] Mar, [address] [address] Mar, [address] [address] Feb, Dysthymic disorder F34.1 and Generalized anxiety disorder F41.[address] [address] Jan, UTI (urinary tract infection ) N39.0 ; Asthma J45.909 ; Coronary artery disease involving [place] coronary artery of [place] heart, angina presence unspecified I25.10 ; Hypertension I10 ; Hypothyroid E03.9 ; Vitamin D deficiency E55.9 ; Insomnia G47.00 ; Palpitations R00.2 ; Depressed F32.9 ; Restless leg G25.81 and Anxiety F41.[address] [address] Jan, Dysthymic disorder F34.1 and Generalized anxiety disorder F41.[address] [address] Jan, [address] [address] Dec, [address] [address] 28 Dec, 2014 Alkalosis 276.3 ; Chronic ki dney disease, Stage IV (severe) 585.4 ; Hyperpotassemia 276.7 ; Secondary hyperparathyroidism, renal 588.81 ; Proteinuria 791.0 ; Unspecified vitamin D deficiency 268.9 ; Anemia in chronic kidney disease 285.21 ; Other and unspecified hyperlipidemia 272.4 ; Hypertension, essential, benign 401.1 and Chronic kidney disease (CKD), stage III (moderate) 585.[address] [address] Dec, [facility] [address] [facility] [id number] [place] [id number] Dec, Depressive disorder, not els ewhere classified 311 and Generalized anxiety disorder 300.02 [facility] [address] [place] [id number] [place] [phone] Dec, [facility] [address] [place] [id number] [place] [address] Dec, [facility] [address] [address] Nov, Depressive disorder, not els ewhere classified 311 and Generalized anxiety disorder 300.02 [place] [address] [address] Nov, Arthritis of both knees 716. [address] [address] Nov, PAF (paroxysmal atrial fibri llation) 427.31 ; CAD (coronary artery disease) 414.00 ; Chest pain 786.50 and Chronic kidney disease (CKD) stage G4/A1, severely decreased glomerular filtration rate (GFR) between 15-29 mL/min/1.73 square meter and albuminuria creatinine ratio less than 30 mg/g 585.4 [place] [address] [address] Oct, Coronary atherosclerosis of unspecified type of vessel, [place] or graft 414.00 ; Chronic kidney disease, Stage IV (severe) 585.4 ; Hypertension 401.9 and Edema 782.3 [place] [address] [address] Oct, Depressive disorder, not els ewhere classified 311 and Generalized anxiety disorder 300.02 [place] [address] [place] [id number] [place] [address] Oct, Depressive disorder, not els ewhere classified 311 and Generalized anxiety disorder 300.02 [place] [address] [address] Oct, [facility] [address] [address] Oct, [facility] [address] [address] Sep, [facility] [address] [address] Sep, Chronic kidney disease, Stag e IV (severe) 585.4 [facility] [address] [address] Sep, [facility] [address] [address] Sep, Coronary atherosclerosis of unspecified type of vessel, [place] or graft 414.00 ; Hypertension 401.9 ; Edema 782.3 and Hypothyroidism 244.[address] [address] Sep, Coronary atherosclerosis of unspecified type of vessel, [place] or graft 414.00 ; Hypertension 401.9 ; Fibromyalgia 729.1 ; Edema 782.3 ; Hypothyroidism 244.9 and Anemia 285.9 [place] [address] [address] Sep, Anxiety disorder, unspecifie d 300.00 and Depressive disorder, not elsewhere classified 311 [place] [address] [address] Sep, [facility] [address] [address] August, Generalized anxiety disorder 300.02 [place] [address] [address] August, Closed fracture of lateral m alleolus 824.2 [facility] [address] [address] Jul, [facility] [address] [address] 13 Jul, 2014 [facility] [address] [id number] [address] [place] [address], [place] [address] Jun, [facility] [address] [id number] [address] [place] [address], [place] [address] Jun, [facility] [address] [id number] [address] [place] [address], [place] [address] Jun, [facility] [address] [id number] [address] [place] [address], [place] [address] 13 Jun, 2014 [facility] [address] [id number] [address] [place] [address], [place] [address] Jun, [facility] [address] [id number] [address] [place] [address], [place] [address] Jun, [facility] [address] [id number] [address] [place] [address], [place] [address] 19 May, 2014 [facility] [address] [id number] [address] [place] [address], [place] [address] 19 May, 2014 [facility] [address] [id number] [address] [place] [address], [place] [address] 18 May, 2014 [facility] [address] [id number] [address] [place] [address], [place] [address] 18 May, 2014 [facility] [address] [id number] [address] [place] [address], [place] [address] 16 May, 2014 [facility] [address] [id number] [address] [place] [id number] 16 May, 2014 [facility] [address] [id number] [address] [place] [address], [place] [address] 13 May, 2014 [facility] [address] [id number] [address] [place] [id number] 13 May, 2014 [facility] [address] [id number] [address] [place] [id number] May, [facility] [address] [id number] [address] [place] [address], [place] [address] May, [facility] [address] [id number] [address] [place] [address], [place] [address] Apr, [facility] [address] [id number] [address] [place] [address], [place] [address] Apr, [facility] [address] [id number] [address] [place] [address], [place] [address] Mar, [facility] [address] [id number] [address] [place] [address], [place] [address] Mar, [facility] [address] [id number] [address] [place] [address], [place] [address] Mar, [facility] [address] [id number] [address] [place] [address], [place] [address] Mar, [facility] [address] [id number] [address] [place] [address], [place] [address] Mar, [facility] [address] [id number] [address] [place] [address], [place] [address] Mar, [facility] [address] [id number] [address] [place] [address], [place] [address] Mar, [facility] [address] [id number] [address] [place] [address], [place] [address] Feb, [facility] [address] [id number] [address] [place] [address], [place] [address] Feb, [facility] [address] [id number] [address] [place] [address], [place] [address] Feb, [facility] [address] [id number] [address] [place] [address], [place] [address] Jan, [facility] [address] [id number] [address] [place] [address], [place] [address] Jan, [facility] [address] [id number] [address] [place] [address], [place] [address] Jan, [facility] [address] [id number] [address] [place] [address], [place] [address] Jan, [facility] [address] [id number] [address] [place] [address], [place] [address] Jan, [facility] [address] [id number] [address] [place] [address], [place] [address] Jan, [facility] [address] [id number] [address] [place] [address], [place] [address] Jan, [facility] [address] [id number] [address] [place] [address], [place] [address] Jan, [facility] [address] [id number] [address] [place] [address], [place] [address] Jan, [facility] [address] [id number] [address] [place] [address], [place] [address] Jan, [facility] [address] [id number] [address] [place] [address], [place] [address] Nov, [facility] [address] [id number] [address] [place] [address], [place] [address] Nov, [facility] [address] [id number] [address] [place] [address], [place] [address] Nov, [facility] [address] [id number] [address] [place] [address], [place] [address] Oct, [facility] [address] [id number] [address] [place] [address], [place] [address] Oct, [facility] [address] [id number] [address] [place] [address], [place] [address] Oct, [facility] [address] [id number] [address] [place] [address], [place] [address] Oct, [facility] [address] [id number] [address] [place] [address], [place] [address] Oct, [facility] [address] [id number] [facility] [place] [address] 17 Oct, 2013 [facility] [address] [id number] [facility] [place] [address] Oct, [facility] [address] [id number] [address] [place] [address], [place] [address] Oct, [facility] [address] [id number] [address] [place] [address], [place] [address] Oct, [facility] [address] [id number] [address] [place] [address], [place] [address] Sep, [facility] [address] [id number] [address] [place] [address], [place] [address] Sep, [facility] [address] [id number] [address] [place] [address], [place] [address] Sep, [facility] [address] [id number] [address] [place] [address], [place] [address] Sep, [facility] [address] [id number] [address] [place] [address], [place] [address] Sep, [facility] [address] [id number] [address] [place] [address], [place] [address] Sep, [facility] [address] [id number] [address] [place] [address], [place] [address] Sep, [facility] [address] [id number] [address] [place] [address], [place] [address] Sep, [facility] [address] [id number] [address] [place] [address], [place] [address] Sep, [facility] [address] [id number] [address] [place] [address], [place] [address] August, [facility] [address] [id number] [address] [place] [address], [place] [address] August, [facility] [address] [id number] [address] [place] [address], [place] [address] August, [facility] [address] [id number] [address] [place] [address], [place] [address] August, [facility] [address] [id number] [address] [place] [address], [place] [address] August, [facility] [address] [id number] [address] [place] [address], [place] [address] August, [facility] [address] [id number] [address] [place] [address], [place] [address] Jul, [facility] [address] [id number] [address] [place] [address], [place] [address] Jul, [facility] [address] [id number] [address] [place] [address], [place] [address] Jul, [facility] [address] [id number] [address] [place] [address], [place] [address] Jul, [facility] [address] [id number] [address] [place] [address], [place] [address] Jul, [facility] [address] [id number] [address] [place] [address], [place] [address] Jul, [facility] [address] [id number] [address] [place] [address], [place] [address] Jun, [facility] [address] [id number] [address] [place] [address], [place] [address] Jun, [facility] [address] [id number] [address] [place] [address], [place] [address] May, [facility] [address] [id number] [address] [place] [address], [place] [address] May, [facility] [address] [id number] [address] [place] [address], [place] [address] May, [facility] [address] [id number] [address] [place] [address], [place] [address] May, [facility] [address] [id number] [address] [place] [address], [place] [address] Apr, [facility] [address] [id number] [address] [place] [address], [place] [address] Apr, [facility] [address] [id number] [address] [place] [address], [place] [address] Mar, [facility] [address] [id number] [address] [place] [address], [place] [address] Mar, [facility] [address] [id number] [address] [place] [address], [place] [address] Mar, [facility] [address] [id number] [address] [place] [address], [place] [address] Mar, [facility] [address] [id number] [address] [place] [address], [place] [address] Mar, [facility] [address] [id number] [address] [place] [address], [place] [address] Mar, [facility] [address] [id number] [address] [place] [address], [place] [address] Feb, [facility] [address] [id number] [address] [place] [address], [place] [address] Feb, [facility] [address] [id number] [address] [place] [address], [place] [address] 14 Feb, 2013 [facility] [address] [id number] [address] [place] [address], [place] [address] Feb, [facility] [address] [id number] [address] [place] [address], [place] [address] Feb, [facility] [address] [id number] [address] [place] [address], [place] [address] 05 Feb, 2013 [facility] [address] [id number] [address] [place] [address], [place] [address] Jan, [facility] [address] [id number] [address] [place] [address], [place] [address] Jan, [facility] [address] [id number] [address] [place] [address], [place] [address] Jan, [facility] [address] [id number] [address] [place] [address], [place] [address] Jan, [facility] [address] [id number] [address] [place] [address], [place] [address] Jan, [facility] [address] [id number] [address] [place] [address], [place] [address] Jan, [facility] [address] [id number] [address] [place] [address], [place] [address] Dec, [facility] [address] [id number] [address] [place] [address], [place] [address] Dec, [facility] [address] [id number] [address] [place] [address], [place] [address] Nov, [facility] [address] [id number] [address] [place] [address], [place] [address] Nov, [facility] [address] [id number] [address] [place] [address], [place] [address] Oct, [facility] [address] [id number] [address] [place] [address], [place] [address] Oct, [facility] [address] [id number] [address] [place] [address], [place] [address] Oct, [facility] [address] [id number] [address] [place] [address], [place] [address] Oct, [facility] [address] [id number] [address] [place] [address], [place] [address] Oct, [facility] [address] [id number] [address] [place] [address], [place] [address] Oct, [facility] [address] [id number] [address] [place] [address], [place] [address] Sep, [facility] [address] [id number] [address] [place] [address] [place] [address] Sep, [facility] [address] [id number] [address] [place] [address], [place] [address] Sep, [facility] [address] [id number] [address] [place] [address], [place] [address] Sep, [facility] [address] [id number] [address] [place] [address], [place] [address] August, [facility] [address] [id number] [address] [place] [address], [place] [address] August, [facility] [address] [id number] [address] [place] [address], [place] [address] August, [facility] [address] [id number] [address] [place] [address], [place] [address] August, [facility] [address] [id number] [address] [place] [address], [place] [address] August, [facility] [address] [id number] [address] [place] [address], [place] [address] Jul, [facility] [address] [id number] [address] [place] [address], [place] [address] Jul, [facility] [address] [id number] [address] [place] [address], [place] [address] Jul, [facility] [address] [id number] [address] [place] [address], [place] [address] Jul, [facility] [address] [id number] [address] [place] [address], [place] [address] Jul, [facility] [address] [id number] [address] [place] [address], [place] [address] Jul, [facility] [address] [id number] [address] [place] [address], [place] [address] Jul, [facility] [address] [id number] [address] [place] [address], [place] [address] Jul, [facility] [address] [id number] [address] [place] [address], [place] [address] Jul, [facility] [address] [id number] [address] [place] [address], [place] [address] Jul, [facility] [address] [id number] [place], Carolee S [id number] Jun, [facility] [address] [id number] [address] [place] [address], [place] [address] Jun, [facility] [address] [id number] [address] [place] [address], [place] [address] Jun, [facility] [address] [id number] [address] [place] [address], [place] [address] Jun, [facility] [address] [id number] [address] [place] [address], [place] [address] Jun, [facility] [address] [id number] [address] [place] [address], [place] [address] May, [facility] [address] [id number] [address] [place] [address], [place] [address] May, [facility] [address] [id number] [address] [place] [address], [place] [address] May, [facility] [address] [id number] [address] [place] [address], [place] [address] Apr, [facility] [address] [id number] [address] [place] [address], [place] [address] Apr, [facility] [address] [id number] [address] [place] [address], [place] [address] Apr, [facility] [address] [id number] [address] [place] [address], [place] [address] Apr, [facility] [address] [id number] [address] [place] [address], [place] [address] Apr, [facility] [address] [id number] [address] [place] [address] [address] Apr, [facility] [address] [id number] [address] [place] [address], [place] [address] Mar, [facility] [address] [id number] [address] [place] [address], [place] [address] Mar, [facility] [address] [id number] [address] [place] [address], [place] [address] Mar, [facility] [address] [id number] [address] [place] [address], [place] [address] Mar, [facility] [address] [id number] [address] [place] [address], [place] [address] Feb, [facility] [address] [id number] [address] [place] [address], [place] [address] Feb, [facility] [address] [id number] [address] [place] [address], [place] [address] Feb, [facility] [address] [id number] [address] [place] [address], [place] [address] Feb, [facility] [address] [id number] [address] [place] [address], [place] [address] Feb, [facility] [address] [id number] [address] [place] [address], [place] [address] Feb, [facility] [address] [id number] [address] [place] [address], [place] [address] Feb, [facility] [address] [id number] [address] [place] [address] Feb, [facility] [address] [id number] [address] [place] [address], [place] [address] Feb, [facility] [address] [id number] [address] [place] [address], [place] [address] Feb, [facility] [address] [id number] [address] [place] [address], [place] [address] Feb, [facility] [address] [id number] [address] [place] [address] 05 Feb, 2011 [facility] [address] [id number] [address] [place] [address], [place] [address] 05 Feb, 2012 [facility] [address] [id number] [address] [place] [address], [place] [address] Feb, [facility] [address] [id number] [address] [place] [address] Feb, [facility] [address] [id number] [address] [place] [address], [place] [address] Feb, [facility] [address] [id number] [address] [place] [address], [place] [address] Jan, [facility] [address] [id number] [address] [place] [address], [place] [address] Jan, [facility] [address] [id number] [address] [place] [address], [place] [address] 31 Jan, 2012 [facility] [address] [id number] [address] [place] [address] 31 Jan, 2012 [facility] [address] [id number] [address] [place] [address], [place] [address] 30 Jan, 2012 [facility] [address] [id number] [address] [place] [address] Jan, [facility] [address] [id number] [address] [place] [address], [place] [address] 25 Jan, 2012 [facility] [address] [id number] [address] [place] [address] 16 Jan, 2012 [facility] [address] [id number] [address] [place] [address] 16 Jan, 2012 [facility] [address] [id number] [address] [place] [address] 15 Jan, 2012 [facility] [address] [id number] [address] [place] [address] 15 Jan, 2012 [facility] [address] [id number] [address] [place] [address], [place] [address] Jan, [facility] [address] [id number] [address] [place] [address], [place] [address] 26 Dec, 2011 [facility] [address] [id number] [address] [place] [address], [place] [address] 26 Sep, 2011 [facility] [address] [id number] [address] [place] [address], [place] [address] 24 Dec, 2011 [facility] [address] [id number] [address] [place] [address], [place] [address] 23 Dec, 2011 [facility] [address] [id number] [address] [place] [address], [place] [address] 22 Dec, 2011 [facility] [address] [id number] [address] [place] [address], [place] [address] 21 Dec, 2011 [facility] [address] [id number] [address] [place] [address], [place] [address] 20 Dec, 2011 [facility] [address] [id number] [address] [place] [address], [place] [address] 20 Dec, 2011 [facility] [address] [id number] [address] [place] [address], [place] [address] 07 Dec, 2011 [facility] [address] [id number] [address] [place] [address], [place] [address] 06 Sep, 2011 [facility] [address] [id number] [address] [place] [address], [place] [address] 06 Sep, 2011 [facility] [address] [id number] [address] [place] [address], [place] [address] 05 Sep, 2011 [facility] [address] [id number] [address] [place] [address], [place] [address] 23 Nov, 2011 [facility] [address] [id number] [address] [place] [address], [place] [address] 17 Nov, 2011 [facility] [address] [id number] [address] [place] [address], [place] [address] Nov, [facility] [address] [id number] [address] [place] [address], [place] [address] Nov, [facility] [address] [id number] [address] [place] [address], [place] [address] Nov, [facility] [address] [id number] [address] [place] [address], [place] [address] Nov, [facility] [address] [id number] [address] [place] [address], [place] [address] Nov, [facility] [address] [id number] [address] [place] [address], [place] [address] Nov, [facility] [address] [id number] [address] [place] [address], [place] [address] Oct, [facility] [address] [id number] [address] [place] [address], [place] [address] Oct, [facility] [address] [id number] [address] [place] [address], [place] [address] Oct, [facility] [address] [id number] [address] [place] [address], [place] [address] Oct, [facility] [address] [id number] [address] [place] [address], [place] [address] Oct, [facility] [address] [id number] [address] [place] [address], [place] [address] Oct, [facility] [address] [id number] [address] [place] [address], [place] [address] Oct, [facility] [address] [id number] [address] [place] [address], [place] [address] Sep, [facility] [address] [id number] [address] [place] [address], [place] [address] Sep, [facility] [address] [id number] [address] [place] [address], [place] [address] August, [facility] [address] [id number] [address] [place] [address], [place] [address] August, [facility] [address] [id number] [address] [place] [address], [place] [address] August, [facility] [address] [id number] [address] [place] [address], [place] [address] August, [facility] [address] [id number] [address] [place] [address], [place] [address] Jul, [facility] [address] [id number] [address] [place] [address], [place] [address] Jul, [facility] [address] [id number] [address] [place] [address], [place] [address] Jul, [facility] [address] [id number] [address] [place] [address], [place] [address] Jul, [facility] [address] [id number] [address] [place] [address], [place] [address] Jul, [facility] [address] [id number] [address] [place] [address], [place] [address] Jul, [facility] [address] [id number] [address] [place] [address], [place] [address] Jul, [facility] [address] [id number] [address] [place] [address], [place] [address] Jul, [facility] [address] [id number] [address] [place] [address], [place] [address] Jul, [facility] [address] [id number] [address] [place] [address], [place] [address] 23 Jun, 2011 [facility] [address] [id number] [address] [place] [address], [place] [address] 19 Jun, 2011 [facility] [address] [id number] [address] [place] [address], [place] [address] 15 Jun, 2011 [facility] [address] [id number] [address] [place] [address], [place] [address] 14 Jun, 2011 [facility] [address] [id number] [address] [place] [address], [place] [address] Jun, [facility] [address] [id number] [address] [place] [address], [place] [address] Jun, [facility] [address] [id number] [address] [place] [address], [place] [address] Jun, [facility] [address] [id number] [address] [place] [address], [place] [address] May, [facility] [address] [id number] [address] [place] [address], [place] [address] May, [facility] [address] [id number] [address] [place] [address], [place] [address] May, [facility] [address] [id number] [address] [place] [address], [place] [address] May, [facility] [address] [id number] [address] [place] [address], [place] [address] May, [facility] [address] [id number] [address] [place] [address], [place] [address] Apr, [facility] [address] [id number] [address] [place] [address], [place] [address] Apr, [facility] [address] [id number] [address] [place] [address], [place] [address] Apr, [facility] [address] [id number] [address] [place] [address], [place] [address] Apr, [facility] [address] [id number] [address] [place] [address], [place] [address] Apr, [facility] [address] [id number] [address] [place] [address], [place] [address] Mar, [facility] [address] [id number] [address] [place] [address], [place] [address] Mar, [facility] [address] [id number] [address] [place] [address], [place] [address] Mar, [facility] [address] [id number] [address] [place] [address], [place] [address] Mar, [facility] [address] [id number] [address] [place] [address], [place] [address] Mar, [facility] [address] [id number] [address] [place] [address], [place] [address] Mar, [facility] [address] [id number] [address] [place] [address], [place] [address] Mar, [facility] [address] [id number] [address] [place] [address], [place] [address] Feb, [facility] [address] [id number] [address] [place] [address], [place] [address] Feb, [facility] [address] [id number] [address] [place] [address], [place] [address] Feb, [facility] [address] [id number] [address] [place] [address], [place] [address] Feb, [facility] [address] [id number] [address] [place] [address], [place] [address] Jan, [facility] [address] [id number] [address] [place] [address], [place] [address] Jan, [facility] [address] [id number] [address] [place] [address], [place] [address] Jan, [facility] [address] [id number] [address] [place] [address], [place] [address] Jan, [facility] [address] [id number] [address] [place] [address], [place] [address] Nov, [facility] [address] [id number] [address] [place] [address], [place] [address] 30 Mar, 2010 [facility] [address] [id number] [address] [place] [address], [place] [address] Mar, [facility] [address] [id number] [address] [place] [address] Mar, [facility] [address] [id number] [address] [place] [address] Mar, [facility] [address] [id number] [address] [place] [address] Mar, [facility] [address] [id number] [address] [place] [address] Mar, [facility] [address] [id number] [address] [place] [id number] Feb, [facility] [address] [id number] [address] [place] [address] Feb, [facility] [address] [facility] [id number] [address] [place] [address] Jan, [facility] [address] [facility] [id number] [address] [place] [address] Jan, [facility] [address] [facility] [id number] [address] [place] [id number] Jan, IMMUNIZATIONS No Known Immunizations SOCIAL HISTORY [...] History CPAP Noncompliance_ Dr. Madden advises a BIMA driving. 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 2019 Hospitalization History Surgeries Only Hospitalization History bacterial meningitis December 2016 Hospitalization History [facility] psych for SI 1988 Hospitalization History [facility]-Altered mental status 05/2017 Hospitalization History sepsis, UTI, headache 08/03/2018-
--- OUTSIDE RECORDS SUMMARY | 2019-08-01 10:12 | XMS REPORT ---
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 Active 29049577 Problem Chronic kidney disease, stage 4 (severe) N18.4 Active 086014763 Problem Degenerative tear of medial meniscus of left knee M23.204 Active 508989152 Problem Dysthymic disorder F34.1 Active 7 0156085 Problem Primary osteoarthritis of left knee M17.12 Active 678475877 Problem Generalized anxiety disorder F41.1 A ctive 27942433 Problem Restless leg G25.81 Active 4540761 8 Problem Coronary artery disease invo lving [place] coronary artery of [place] heart, angina presence unspecified I25.10 Active 2196153737873 Problem Hypokalemia E87.6 Active 79152684 Problem Other seasonal allergic rhinitis J30.2 Active 062565749 Problem Mixed stress and urge urinary incontinence N39.46 Active 346690491 Problem Fibromyalgia M79.7 Active 4848496 05 Problem Essential (primary) hypertension I10 Active 69530617 Problem Long-term use of high-risk medication Z79.899 Active 110469402 Problem Vitamin D deficiency E55.9 Active 92643988 Problem Anemia in chronic kidney disease D63.1 Active [id number] Problem Low back pain M54.5 Active 190782 009 Problem Chronic kidney disease, unspecified N18.9 Active 846222367 Problem Abnormal chest CT R93.8 Active 44 9967769 Problem Mood disorder F39 Active 916412 05 Problem Stage 3 chronic kidney disease N18.3 Active 459711130 Problem Body mass index (BMI) of 40.0-44.9 in adult Z68.41 Active 598255677 Problem Other chronic pain G89.29 Active 8 4310803 Problem Asthma with acute exacerbation in adult J45.901 Active 250026045 Problem Major depressive disorder, recurrent, moderate F33 .1 Active 794624645 Problem History of colon polyps Z86.010 Active 793438697 Problem History of anemia Z86.2 Active 27 8312769 Problem Seasonal allergic rhinitis due to pollen J30.1 Active 96663723 Problem Restless leg syndrome G25.81 Active 66168279 Problem Chronic pain syndrome G89.4 Active 123464097 Problem Perimenopausal vasomotor symptoms N95.1 Active 679651644 ALLERGIES No Information ENCOUNTERS Encounter Location Date Diagnosis [facility] [address] [facility] [id number] [address] [place] [address] Dec, [facility] [address] [facility] [id number] [address] [place] [address] Nov, [facility] [address] [place] [id number] [address] [place] [address] Nov, [facility] [address] [facility] [id number] [address] [place] [address] Nov, Restless leg syndrome G25.81 [facility] [address] [place] [id number] [address] [place] [address] Nov, Pain in right shoulder M25.5 11 ; Restless leg syndrome G25.81 ; Other chronic pain G89.29 ; Screening for breast cancer Z12.39 ; Insomnia G47.00 and Morbid obesity E66.01 [facility] [address] [facility] [id number] [address] [place] [address] Nov, [facility] [address] [facility] [id number] [address] [place] [address] Oct, Major depressive disorder, r ecurrent, moderate F33.1 ; Generalized anxiety disorder F41.1 and Dysthymic disorder F34.1 [facility] [address] [facility] [id number] [address] [place] [address] Oct, [facility] [address] [id number] [address] [place] [address] Oct, Cellulitis of left lower ext remity L03.116 and Morbid obesity E66.01 [facility] [address] [id number] [address] [place] [phone] Oct, [facility] [address] [id number] [address] [place] [phone] Oct, [facility] [address] [id number] [address] [place] [phone] Oct, Generalized anxiety disorder F41.1 and Major depressive disorder, recurrent episode with anxious distress F33.9 [facility] [address] [id number] [address] [place] [phone] Oct, [facility] [address] [id number] [address] [place] [address] Oct, Chronic pain syndrome G89.4 [facility] [address] [id number] [address] [place] [address] Oct, Chronic pain syndrome G89.4 [facility] [address] [id number] [address] [place] [address] Oct, UTI symptoms R39.9 ; Acute c ystitis without hematuria N30.00 and Morbid obesity E66.01 [facility] [address] [id number] [address] [place] [phone] Oct, [facility] [address] [id number] [address] [place] [address] Oct, Chronic pain syndrome G89.4 [facility] [address] [id number] [address] [place] [phone] Sep, [facility] [address] [id number] [address] [place] [address] Sep, Generalized anxiety disorder F41.1 and Major depressive disorder, recurrent episode with anxious distress F33.9 [facility] [address] [facility] [id number] [address] [place] [phone] 17 Sep, 2018 Chronic kidney disease, stag e 4 (severe) N18.4 [facility] [address] [facility] [id number] [address] [place] [phone] Sep, Fibromyalgia M79.7 and Chron ic pain syndrome G89.4 [facility] [address] [facility] [id number] [address] [place] [address] Sep, [address] [address] Sep, Chronic pain syndrome G89.4 [facility] [address] [facility] [id number] [address] [place] [address] Sep, [place] [address] [facility] [id number] [address] [place] [address] Sep, Chronic pain syndrome G89.4 ; Fibromyalgia M79.7 and Morbid obesity E66.01 [place] [address] [place] [id number] [address] [place] [address] August, Generalized anxiety disorder F41.1 and Major depressive disorder, recurrent episode with anxious distress F33.9 [place] [address] [facility] [id number] [address] [place] [address] August, Fibromyalgia M79.7 [facility] [address] [place] [id number] [address] [place] [address] August, Restless leg syndrome G25.81 ; Vitamin D deficiency E55.9 ; Urinary tract infection without hematuria, site unspecified N39.0 ; Pain in right shoulder M25.511 ; Other chronic pain G89.29 ; Biceps tendinitis on right M75.21 and Morbid obesity E66.01 [place] [address] [facility] [id number] [address] [place] [phone] Jul, Urinary tract infection with out hematuria, site unspecified N39.0 and Morbid obesity E66.01 [place] [address] [place] [id number] [address] [place] [phone] Jul, [facility] [address] [facility] [id number] [address] [place] [phone] Jul, [facility] [address] [facility] [id number] [address] [place] [address] Jul, Fibromyalgia M79.7 [facility] [address] [facility] [id number] [address] [place] [address] Jul, Acute pain of right shoulder M25.511 [facility] [address] [facility] [id number] [address] [place] [address] Jul, Acute pain of right shoulder M25.511 and Morbid obesity E66.01 [facility] [address] [facility] [id number] [address] [place] [address] Jun, [place] [address] [place] [id number] [place] [address] Jun, Generalized anxiety disorder F41.1 and Major depressive disorder, recurrent episode with anxious distress F33.9 [facility] [address] [facility] [id number] [address] [place] [address] Jun, [place] [address] [place] [id number] [place] [address] Jun, Fibromyalgia M79.7 [facility] [address] [facility] [id number] [address] [place] [address] Jun, Acute pain of right shoulder M25.511 ; Acute pain of right hip M25.551 and Morbid obesity E66.01 [facility] [address] [facility] [id number] [address] [place] [address] May, Burning with urination R30.0 ; Vaginal discharge N89.8 ; Chronic kidney disease, stage 4 (severe) N18.4 ; Body mass index (BMI) of 40.0-44.9 in adult Z68.41 and Morbid obesity E66.01 [facility] [address] [facility] [id number] [address] [place] [address] May, Fibromyalgia M79.7 [facility] [address] [id number] [address] [place] [address] May, Generalized anxiety disorder F41.1 and Major depressive disorder, recurrent episode with anxious distress F33.9 [facility] [address] [id number] [address] [place] [address] Apr, [facility] [address] [facility] [id number] [address] [place] [phone] Apr, Fibromyalgia M79.7 [facility] [address] [id number] [address] [place] [phone] Mar, Acute UTI N39.0 and Dysuria R30.0 [facility] [address] [id number] [address] [place] [phone] 10 Mar, 2018 Fibromyalgia M79.7 [facility] [address] [facility] [id number] [address] [place] [phone] 15 Feb, 2018 [facility] [address] [id number] [address] [place] [phone] Feb, [facility] [address] [facility] [id number] [address] [place] [phone] Feb, [facility] [address] [facility] [id number] [address] [place] [phone] Feb, Fibromyalgia M79.7 [facility] [address] [facility] [id number] [address] [place] [phone] Feb, Complicated UTI (urinary tra ct infection) N39.0 [facility] [address] [id number] [address] [place] [phone] Feb, [facility] [address] [facility] [id number] [address] [place] [phone] Jan, Generalized anxiety disorder F41.1 and Major depressive disorder, recurrent episode with anxious distress F33.9 [facility] [address] [facility] [id number] [address] [place] [address] Jan, Acute conjunctivitis of left eye, unspecified acute conjunctivitis type H10.32 [facility] [address] [id number] [address] [place] [address] Jan, [facility] [address] [facility] [id number] [address] [place] [address] Jan, Acute non-recurrent maxillar y sinusitis J01.00 ; Dysuria R30.0 ; Perimenopausal vasomotor symptoms N95.1 and Fibromyalgia M79.7 [facility] [address] [id number] [address] [place] [address] Dec, Vitamin D deficiency E55.9 [facility] [address] [id number] [address] [place] [phone] Dec, Vitamin D deficiency E55.9 [facility] [address] [facility] [id number] [address] [place] [phone] Dec, Vitamin D deficiency E55.9 [facility] [address] [facility] [id number] [address] [place] [phone] Dec, [facility] [address] [facility] [id number] [address] [place] [phone] Dec, Fibromyalgia M79.7 [facility] [address] [facility] [id number] [address] [place] [phone] Nov, [facility] [address] [facility] [id number] [address] [place] [phone] Nov, [facility] [address] [facility] [id number] [address] [place] [address] Nov, [facility] [address] [facility] [id number] [address] [place] [address] Nov, Fibromyalgia M79.7 ; Vision changes H53.9 ; Chest wall pain R07.89 and Chronic pain syndrome G89.4 [facility] [address] [facility] [id number] [address] [place] [address] Nov, [facility] [address] [id number] [address] [place] [address] Nov, Rash of hands R21 [facility] [address] [id number] [address] [place] [phone] Nov, Generalized anxiety disorder F41.1 and Major depressive disorder, recurrent episode with anxious distress F33.9 [place] [address] [id number] [address] [place] [address] Nov, Fibromyalgia M79.7 [place] [address] [id number] [address] [place] [phone] Nov, Complicated UTI (urinary tra ct infection) N39.0 [place] [address] [id number] [address] [place] [phone] Oct, [place] [address] [id number] [address] [place] [address] Oct, Generalized anxiety disorder F41.1 and Major depressive disorder, recurrent episode with anxious distress F33.9 [place] [address] [id number] [address] [place] [address] Oct, [place] [address] [id number] [address] [place] [address] Oct, Fibromyalgia M79.7 [place] [address] [facility] [id number] [address] [place] [address] Sep, Restless leg syndrome G25.81 and Restless leg G25.81 [place] [address] [id number] [address] [place] [address] Sep, [place] [address] [id number] [address] [place] [address] Sep, Seasonal allergic rhinitis d ue to pollen J30.1 ; Screening for breast cancer Z12.31 ; Chest pain at rest R07.9 ; Restless leg syndrome G25.81 ; Essential (primary) hypertension I10 and Depressed F32.9 [place] [address] [id number] [address] [place] [address] August, Fibromyalgia M79.7 [facility] [address] [facility] [id number] [address] [place] [address] August, [facility] [address] [facility] [id number] [address] [place] [address] August, [facility] [address] [facility] [id number] [address] [place] [phone] August, Abnormal chest [address] R93.8 [facility] [address] [facility] [id number] [address] [place] [address] August, Generalized anxiety disorder F41.1 and Major depressive disorder, recurrent episode with anxious distress F33.9 [facility] [address] [facility] [id number] [address] [place] [address] August, Abnormal chest CT R93.8 [facility] [address] [facility] [id number] [address] [place] [address] Jul, [facility] [address] [facility] [id number] [address] [place] [address] Jul, Chronic kidney disease, stag e 4 (severe) N18.4 [facility] [address] [facility] [id number] [address] [place] [address] Jul, [facility] [address] [facility] [id number] [address] [place] [address] Jul, Restless leg G25.81 ; Mixed stress and urge urinary incontinence N39.46 and Fibromyalgia M79.7 [facility] [address] [facility] [id number] [address] [place] [address] Jul, Chronic kidney disease, stag e 4 (severe) N18.4 [facility] [address] [facility] [id number] [address] [place] [address] Jun, Orthostatic hypotension I95. 1 ; Chronic kidney disease, stage 4 (severe) N18.4 ; Chest wall discomfort R07.89 and Body mass index (BMI) of 40.0- 44.9 in adult Z68.41 [facility] [address] [facility] [id number] [address] [place] [address] Jun, [facility] [address] [place] [id number] [address] [place] [address] Jun, Orthostatic hypotension I95. 1 [facility] [address] [place] [id number] [place] [phone] Jun, [facility] [address] [facility] [id number] [place] [address] Jun, Orthostatic hypotension I95. 1 ; Dysuria R30.0 and Acute cystitis without hematuria N30.00 [facility] [address] [place] [id number] [address] [place] [address] Jun, [facility] [address] [address] Jun, Chronic kidney disease, stag e 4 (severe) N18.4 [facility] [address] [place] [id number] [place] [address] Jun, Fibromyalgia M79.7 [facility] [address] [place] [id number] [place] [phone] Jun, [facility] [address] [address] Jun, [facility] [address] [place] [id number] [place] [address] May, Abnormal chest [address] R93.8 and Stage 3 chronic kidney disease N18.3 [facility] [address] [place] [id number] [address] [place] [address] May, Chronic kidney disease, stag e 4 (severe) N18.4 [facility] [address] [place] [id number] [address] [place] [address] May, Chronic kidney disease, stag e 4 (severe) N18.4 [facility] [address] [id number] [address] [place] [address] May, Abnormal chest [address] R93.8 [facility] [address] [id number] [address] [place] [address] May, [facility] [address] [facility] [id number] [address] [place] [phone] May, [facility] [address] [id number] [address] [place] [address] May, Generalized anxiety disorder F41.1 and Major depressive disorder, recurrent episode with anxious distress F33.9 [place] [address] [id number] [address] [place] [address] May, Mood disorder F39 [place] [address] [facility] [id number] [address] [place] [address] Apr, [place] [address] [facility] [id number] [address] [place] [address] Apr, Infected skin lesion L08.9 a nd Muscle strain of right shoulder region, initial encounter S46.911A [place] [address] [facility] [id number] [address] [place] [address] Apr, Generalized anxiety disorder F41.1 and Major depressive disorder, recurrent episode with anxious distress F33.9 [place] [address] [facility] [id number] [address] [place] [address] Apr, [facility] [address] [facility] [id number] [address] [place] [address] Apr, Recent urinary tract infecti on Z87.440 and Hypothyroid E03.9 [place] [address] [id number] [address] [place] [address] Apr, Generalized anxiety disorder F41.1 and Major depressive disorder, recurrent episode with anxious distress F33.9 [place] [address] [facility] [id number] [address] [place] [address] Apr, Recent urinary tract infecti on Z87.440 [facility] [address] [facility] [id number] [address] [place] [address] Mar, [facility] [address] [facility] [id number] [address] [place] [address] Mar, Dysuria R30.0 ; Acute cystit is without hematuria N30.00 and BMI 40.0-44.9, adult Z68.41 [facility] [address] [facility] [id number] [address] [place] [address] 14 Mar, 2017 [facility] [address] [facility] [id number] [address] [place] [phone] Mar, [place] [address] [place] [id number] [address] [place] [phone] Mar, Generalized anxiety disorder F41.1 and Major depressive disorder, recurrent episode with anxious distress F33.9 [place] [address] [facility] [id number] [address] [place] [address] Feb, Conjunctivitis, bacterial H1 0.9 [place] [address] [facility] [id number] [address] [place] [address] Feb, [facility] [place] [address] [facility] [id number] [address] [place] [phone] 15 Feb, 2017 Conjunctivitis, bacterial H1 0.9 [place] [address] [facility] [id number] [address] [place] [phone] 15 Feb, 2017 [facility] IN [facility] [address] [facility] [id number] [address] [place] [phone] 10 Feb, 2017 Dysuria R30.0 ; Acute cystit is N30.00 and BMI 40.0-44.9, adult Z68.41 [facility] [address] [facility] [id number] [address] [place] [phone] 08 Feb, 2017 [place] [address] [address] [facility] [id number] [address] [place] [phone] Feb, Generalized anxiety disorder F41.1 and Major depressive disorder, recurrent episode with anxious distress F33.9 [place] [id number] [address] [facility] [id number] [address] [place] [phone] Feb, Mood disorder F39 and BMI 40 .0-44.9, adult Z68.41 [facility] [address] [place] [id number] [address] [place] [phone] Jan, [place] [address] [place] [id number] [place] [phone] Jan, [place] [address] [place] [id number] [place] [phone] Jan, Hypothyroid E03.9 [place] [address] [place] [id number] [place] [phone] Jan, [place] [address] [phone] Jan, Chronic kidney disease, unsp ecified N18.9 ; Hypokalemia E87.6 ; Essential (primary) hypertension I10 ; Fibromyalgia M79.7 ; 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, angina presence unspecified I25.10 ; Hypothyroid E03.9 and Encounter for immunization Z23 [place] [address] [address] [place] [id number] [address] [place] [address] Jan, Hypothyroid E03.9 [facility] [facility] [address] [place] [id number] [address] [place] [address] Jan, [place] [address] [place] [id number] [address] [place] [address] Dec, Vitamin D deficiency E55.9 [place] [address] [place] [id number] [address] [place] [address] Dec, Primary osteoarthritis of le ft knee M17.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 [place] [address] [place] [id number] [address] [place] [address] 19 Sep, 2017 Fibromyalgia M79.7 [facility] [address] [id number] [address] [place] [phone] 18 Sep, 2017 Mood disorder F39 [facility] [address] [id number] [address] [place] [address] 13 Dec, 2016 [facility] [address] [id number] [address] [place] [address] 13 Dec, 2016 Generalized anxiety disorder F41.1 and Major depressive disorder, recurrent episode with anxious distress F33.9 [facility] [address] [id number] [address] [place] [address] 11 Dec, 2016 [facility] [address] [id number] [address] [place] [address] 08 Dec, 2016 Streptococcal meningitis G00 .2 [facility] [address] [id number] [address] [place] [phone] 07 Dec, 2016 Streptococcal meningitis G00 .2 [facility] [address] [id number] [address] [place] [phone] 07 Dec, 2016 [facility] [address] [id number] [address] [place] [address] 06 Dec, 2016 Streptococcal meningitis G00 .2 [facility] [address] [id number] [address] [place] [phone] 06 Dec, 2016 [facility] [address] [id number] [address] [place] [phone] 06 Dec, 2016 Major depressive disorder, r ecurrent episode with anxious distress F33.9 [facility] [address] [id number] [address] [place] [phone] 29 Nov, 2016 Fever, unspecified fever cau se R50.9 [facility] [address] [id number] [address] [place] [address] 24 Nov, 2016 [facility] [address] [id number] [address] [place] [address] 16 Nov, 2016 Hypothyroid E03.9 [facility] [address] [id number] [address] [place] [address] Nov, Generalized anxiety disorder F41.1 and Major depressive disorder, recurrent episode with anxious distress F33.9 [facility] [address] [id number] [address] [place] [address] Nov, [facility] [address] [id number] [address] [place] [id number] Oct, Dental examination Z01.20 [facility] [address] [id number] [address] [place] [address] Oct, Generalized anxiety disorder F41.1 and Major depressive disorder, recurrent episode with anxious distress F33.9 [facility] [address] [facility] [id number] [address] [place] [address] Oct, Chronic kidney disease, stag e 4 (severe) N18.4 [facility] [address] [facility] [id number] [address] [place] [phone] Oct, [facility] [address] [facility] [id number] [address] [place] [address] Oct, Fibromyalgia M79.7 [facility] [address] [facility] [id number] [address] [place] [address] Oct, [facility] [address] [facility] [id number] [address] [place] [address] Oct, Generalized anxiety disorder F41.1 ; Major depressive disorder, recurrent episode with anxious distress F33.9 and Bipolar disorder, current episode manic without psychotic features F31.10 [facility] [address] [id number] [address] [place] [address] Sep, [facility] [address] [facility] [id number] [address] [place] [address] Sep, [facility] [address] [facility] [id number] [address] [place] [address] Sep, Vitamin D deficiency E55.9 [place] [address] [facility] [id number] [address] [place] [address] 14 Sep, 2016 Vitamin D deficiency E55.9 [place] [address] [facility] [id number] [address] [place] [address] Sep, [place] [address] [facility] [id number] [address] [place] [address] Sep, Chronic kidney disease, stag e 4 (severe) N18.4 ; Hypothyroid E03.9 ; Restless leg G25.81 ; Fibromyalgia M79.7 ; Essential (primary) hypertension I10 ; Vitamin D deficiency E55.9 ; Dyspepsia R10.13 ; Anemia in chronic kidney disease D63.1 ; Chronic kidney disease, unspecified N18.9 ; 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, angina presence unspecified I25.10 ; Screening breast examination Z12.39 and Low back pain M54.5 [place] [address] [facility] [id number] [address] [place] [phone] August, Generalized anxiety disorder F41.1 and Major depressive disorder, recurrent episode with anxious distress F33.9 [place] [address] [facility] [id number] [address] [place] [address] August, Generalized anxiety disorder F41.1 and Major depressive disorder, recurrent episode with anxious distress F33.9 [place] [address] [place] [id number] [address] [place] [address] August, Fibromyalgia M79.7 [place] [address] [facility] [id number] [address] [place] [address] Jul, Generalized anxiety disorder F41.1 and Major depressive disorder, recurrent episode with anxious distress F33.9 [place] [address] [facility] [id number] [address] [place] [address] Jul, Fibromyalgia M79.7 [place] [address] [facility] [id number] [address] [place] [address] Jul, Generalized anxiety disorder F41.1 [place] [id number] [place] [address] May, [facility] [address] [address] May, Hypothyroid E03.9 [place] [address] [place] [id number] [address] [place] [address] May, Chronic kidney disease, stag e 4 (severe) N18.4 ; Hypothyroid E03.9 ; Restless leg G25.81 ; Fibromyalgia M79.7 ; Essential (primary) hypertension I10 ; Vitamin D deficiency E55.9 ; Dyspepsia R10.13 ; Acute non-recurrent maxillary sinusitis J01.00 ; Anemia in chronic kidney disease D63.1 ; Chronic kidney disease, unspecified N18.9 and 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, angina presence unspecified I25.10 [facility] [address] [address] May, Vitamin D deficiency, unspec ified E55.9 [facility] [address] [address] May, Generalized anxiety disorder F41.1 and Major depressive disorder, recurrent episode with anxious distress F33.9 [place] [address] [place] [id number] [address] [place] [address] Apr, Pain in right knee M25.561 a nd Pain in left knee M25.562 [place] [address] [place] [id number] [address] [place] [address] Apr, [place] [address] [address] Apr, [facility] [address] [address] Apr, [place] [address] [place] [id number] [address] [place] [address] Mar, Generalized anxiety disorder F41.1 and Major depressive disorder, recurrent episode with anxious distress F33.9 [facility] [address] [facility] [id number] [address] [place] [address] Mar, Generalized anxiety disorder F41.1 and Major depressive disorder, recurrent episode with anxious distress F33.9 [facility] [address] [facility] [id number] [address] [place] [address] Mar, [facility] [address] [place] [id number] [place] [address] Mar, [facility] [address] [place] [id number] [address] [place] [address] Mar, [facility] [facility] [address] [address] Mar, Asthma J45.909 and Fibromyal elvira M79.7 [facility] [facility] [address] [place] [id number] [place] [address] Mar, Chronic kidney disease, stag e 4 (severe) N18.4 ; Vitamin D deficiency E55.9 and Essential (primary) hypertension I10 [facility] [address] [place] [id number] [address] [place] [address] Feb, [facility] [address] [place] [id number] [place] [address] Feb, Dysuria R30.0 ; Mixed stress and urge urinary incontinence N39.46 ; Fibromyalgia M79.7 and Chronic kidney disease, stage IV (severe) N18.4 [place] [address] [place] [id number] [address] [place] [address] Feb, Chronic kidney disease, stag e 4 (severe) N18.4 [facility] [address] [place] [id number] [address] [place] [address] Feb, Chronic kidney disease, stag e 4 (severe) N18.4 [place] [address] [place] [id number] [address] [place] [address] Feb, [facility] [address] [address] Feb, Vitamin D deficiency, unspec ified E55.9 [facility] [address] [address] Jan, [facility] [address] [address] Jan, [facility] [address] [address] Dec, [place] [address] [address] Dec, Chronic kidney disease, stag e 4 (severe) N18.4 [place] [address] [address] Dec, Dysthymic disorder F34.1 and Generalized anxiety disorder F41.1 [place] [address] [address] Dec, [place] [address] [address] Dec, [facility] [address] [address] Dec, Dysthymic disorder F34.1 and Generalized anxiety disorder F41.1 [place] [address] [address] Dec, Dysuria R30.0 ; Chronic kidn ey disease, stage 4 (severe) N18.4 ; Hypertension I10 ; Dyspepsia R10.13 ; Yeast dermatitis B37.2 ; Palpitations R00.2 ; Hypothyroid E03.9 ; Functional diarrhea K59.1 and Other seasonal allergic rhinitis J30.2 [facility] [address] [address] Dec, [facility] [address] [address] Nov, Dysuria R30.0 and Stress inc ontinence N39.3 [facility] [address] [address] Nov, [facility] [address] [address] Nov, [place] [address] [address] Nov, Osteoarthritis of knees, jose ateral M17.0 [place] [address] [address] Nov, Dysthymic disorder F34.1 and Generalized anxiety disorder F41.1 [place] [address] [address] Nov, [facility] [address] [address] Nov, [place] [address] [address] Nov, Urgency of urination R39.15 [place] [address] [address] Nov, [place] [address] [address] Nov, Chronic kidney disease, stag e 4 (severe) N18.4 [place] [address] [address] Oct, Hypertension I10 ; 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, angina presence unspecified I25.10 ; Palpitations R00.2 ; Hypothyroid E03.9 ; Right foot pain M79.671 ; Functional diarrhea K59.1 and Other seasonal allergic rhinitis J30.2 [place] [address] [address] Oct, Dysthymic disorder F34.1 and Generalized anxiety disorder F41.1 [place] [address] [address] Sep, [facility] [address] [address] Sep, [facility] [address] [address] Sep, [place] [address] [address] Sep, [place] [address] [address] Sep, [place] [address] [address] Sep, Dysthymic disorder F34.1 and Generalized anxiety disorder F41.[address] [address] 16 Sep, 2015 Asthma with acute exacerbati on in adult J45.901 ; Dysuria R30.0 ; Chronic kidney disease, stage 4 (severe) N18.4 and History of anemia Z86.2 [place] [address] [address] Sep, Generalized anxiety disorder F41.1 and Dysthymic disorder F34.1 [place] [address] [address] August, Screening breast examination Z12.39 and Acute recurrent maxillary sinusitis J01.01 [place] [address] [address] August, Osteoarthritis of knees, jose ateral M17.0 [place] [address] [address] August, Chronic kidney disease, stag e 4 (severe) N18.4 ; Acute non- recurrent maxillary sinusitis J01.00 ; Urinary problem R39.89 ; Bowel habit changes R19.4 ; Functional diarrhea K59.1 and History of colon polyps Z86.010 [facility] [address] [facility] [id number] [address] [place] [address] Jul, Dysthymic disorder F34.1 and Generalized anxiety disorder F41.1 [facility] [address] [facility] [id number] [address] [place] [address] Jul, [facility] [address] [facility] [id number] [address] [place] [address] Jul, Dysthymic disorder F34.1 ; G eneralized anxiety disorder F41.1 and group home use of drug Z79.899 [facility] [address] [facility] [id number] [address] [place] [address] Jul, [facility] [address] [facility] [id number] [address] [place] [address] Jun, [facility] [address] [facility] [id number] [address] [place] [address] Jun, [facility] [address] [facility] [id number] [address] [place] [address] May, [facility] [address] [facility] [id number] [address] [place] [address] May, Dysthymic disorder F34.1 and Generalized anxiety disorder F41.1 [facility] [address] [facility] [id number] [address] [place] [address] Apr, Kidney disease N28.9 [facility] [address] [facility] [id number] [address] [place] [address] Apr, Generalized anxiety disorder F41.1 and Dysthymic disorder F34.1 [facility] [address] [facility] [id number] [address] [place] [address] Apr, Chronic kidney disease, stag e 4 (severe) N18.4 [facility] [address] [facility] [id number] [address] [place] [address] Apr, Generalized anxiety disorder F41.1 ; Major depression, recurrent F33.9 and Sleep disturbance G47.9 [place] [id number] [address] Mar, Generalized anxiety disorder F41.1 and Dysthymic disorder F34.1 [facility] [address] [address] Mar, Generalized anxiety disorder F41.1 ; Dysthymic disorder F34.1 and Insomnia G47.00 [facility] [address] [address] Mar, [place] [address] [address] Mar, [place] [address] [address] Mar, Osteoarthritis of knees, jose ateral M17.0 [place] [address] [address] Mar, Hypertension I10 ; Hypothyro id E03.9 ; Dysthymic disorder F34.1 ; Chronic kidney disease, stage 4 (severe) N18.4 and Nausea & vomiting R11.2 [place] [address] [address] Mar, Generalized anxiety disorder F41.1 ; Dysthymic disorder F34.1 and Insomnia G47.00 [facility] [address] [address] Mar, Dehydration E86.0 ; Chronic kidney disease, stage 4 (severe) N18.4 and Nausea & vomiting R11.2 [facility] [address] [address] Mar, Gastroenteritis K52.9 [facility] [address] [address] Mar, [facility] [address] [address] Mar, [place] [address] [address] Feb, Dysthymic disorder F34.1 and Generalized anxiety disorder F41.1 [place] [address] [address] Jan, UTI (urinary tract infection ) N39.0 ; Asthma J45.909 ; 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, angina presence unspecified I25.10 ; Hypertension I10 ; Hypothyroid E03.9 ; Vitamin D deficiency E55.9 ; Insomnia G47.00 ; Palpitations R00.2 ; Depressed F32.9 ; Restless leg G25.81 and Anxiety F41.9 [place] [address] [address] Jan, Dysthymic disorder F34.1 and Generalized anxiety disorder F41.1 [place] [address] [address] Jan, [place] [address] [address] Dec, [place] [address] [address] Dec, Alkalosis 276.3 ; Chronic ki dney disease, Stage IV (severe) 585.4 ; Hyperpotassemia 276.7 ; Secondary hyperparathyroidism, renal 588.81 ; Proteinuria 791.0 ; Unspecified vitamin D deficiency 268.9 ; Anemia in chronic kidney disease 285.21 ; Other and unspecified hyperlipidemia 272.4 ; Hypertension, essential, benign 401.1 and Chronic kidney disease (CKD), stage III (moderate) 585.3 [place] [address] [address] Dec, [address] [address] Dec, Depressive disorder, not els ewhere classified 311 and Generalized anxiety disorder 300.02 [facility] [address] [facility] [id number] [address] [place] [address] Dec, [facility] [address] [facility] [id number] [address] [place] [address] Dec, [facility] [address] [place] [id number] [address] [place] [address] Nov, Depressive disorder, not els ewhere classified 311 and Generalized anxiety disorder 300.02 [facility] [address] [facility] [id number] [address] [place] [address] Nov, Arthritis of both knees 716. 96 [facility] [address] [place] [id number] [place] [address] Nov, PAF (paroxysmal atrial fibri llation) 427.31 ; CAD (coronary artery disease) 414.00 ; Chest pain 786.50 and Chronic kidney disease (CKD) stage G4/A1, severely decreased glomerular filtration rate (GFR) between 15-29 mL/min/1.73 square meter and albuminuria creatinine ratio less than 30 mg/g 585.4 [place] [address] [place] [id number] [place] [address] Oct, Coronary atherosclerosis of unspecified type of vessel, chicken ranch or graft 414.00 ; Chronic kidney disease, Stage IV (severe) 585.4 ; Hypertension 401.9 and Edema 782.3 [facility] [address] [place] [id number] [place] [address] Oct, Depressive disorder, not els ewhere classified 311 and Generalized anxiety disorder 300.02 [facility] [address] [facility] [id number] [address] [place] [address] Oct, Depressive disorder, not els ewhere classified 311 and Generalized anxiety disorder 300.02 [facility] [address] [facility] [id number] [address] [place] [address] Oct, [facility] [address] [place] [id number] [address] [place] [address] Oct, [place] [address] [address] Sep, [place] [address] [address] Sep, Chronic kidney disease, Stag e IV (severe) 585.[address] [address] Sep, [place] [address] [address] Sep, Coronary atherosclerosis of unspecified type of vessel, chicken ranch or graft 414.00 ; Hypertension 401.9 ; Edema 782.3 and Hypothyroidism 244.[address] [address] Sep, Coronary atherosclerosis of unspecified type of vessel, chicken ranch or graft 414.00 ; Hypertension 401.9 ; Fibromyalgia 729.1 ; Edema 782.3 ; Hypothyroidism 244.9 and Anemia 285.9 [place] [address] [address] Sep, Anxiety disorder, unspecifie d 300.00 and Depressive disorder, not elsewhere classified [address] [address] Sep, [address] [address] August, Generalized anxiety disorder 300.[address] [address] August, Closed fracture of lateral m alleolus 824.[address] [address] Jul, [place] [address] [address] Jul, [address] [address] Jun, [facility] [address] [id number] [address] [place] [address], [place] [address] Jun, [facility] [address] [id number] [address] [place] [address], [place] [address] Jun, [facility] [address] [id number] [address] [place] [address], [place] [address] Jun, [facility] [address] [id number] [address] [place] [address], [place] [address] Jun, [facility] [address] [id number] [address] [place] [address], [place] [address] Jun, [facility] [address] [id number] [address] [place] [address], [place] [address] May, 2014 [facility] [address] [id number] [address] [place] [address], [place] [address] 19 May, 2014 [facility] [address] [id number] [address] [place] [address], [place] [address] 18 May, 2014 [facility] [address] [id number] [address] [place] [address], [place] [address] 18 May, 2014 [facility] [address] [id number] [address] [place] [address], [place] [address] 16 May, 2014 [facility] [address] [id number] [address] [place] [address], [place] [address] 16 May, 2014 [facility] [address] [id number] [address] [place] [address], [place] [address] 13 May, 2014 [facility] [address] [id number] [address] [place] [address], [place] [address] 13 May, 2014 [facility] [address] [id number] [address] [place] [address], [place] [address] 10 May, 2014 [facility] [address] [id number] [address] [place] [address], [place] [address] 10 May2014 [facility] [address] [id number] [address] [place] [address], [place] [address] Apr, [facility] [address] [id number] [address] [place] [address], [place] [address] Apr, [facility] [address] [id number] [address] [place] [address], [place] [address] Mar, [facility] [address] [id number] [address] [place] [address], [place] [address] Mar, [facility] [address] [id number] [address] [place] [address], [place] [address] Mar, [facility] [address] [id number] [address] [place] [address], [place] [address] Mar, [facility] [address] [id number] [address] [place] [address], [place] [address] Mar, [facility] [address] [id number] [address] [place] [address], [place] [address] Mar, [facility] [address] [id number] [address] [place] [address], [place] [address] Mar, [facility] [address] [id number] [address] [place] [address], [place] [address] Feb, [facility] [address] [id number] [address] [place] [address], [place] [address] Feb, [facility] [address] [id number] [address] [place] [address], [place] [address] Feb, [facility] [address] [id number] [address] [place] [address], [place] [address] Jan, [facility] [address] [id number] [address] [place] [address], [place] [address] Jan, [facility] [address] [id number] [address] [place] [address], [place] [address] Jan, [facility] [address] [id number] [address] [place] [address], [place] [address] Jan, [facility] [address] [id number] [address] [place] [address], [place] [address] Jan, [facility] [address] [id number] [address] [place] [address], [place] [address] Jan, [facility] [address] [id number] [address] [place] [address], [place] [address] Jan, [facility] [address] [id number] [address] [place] [address], [place] [address] Jan, [facility] [address] [id number] [address] [place] [address], [place] [address] Jan, [facility] [address] [id number] [address] [place] [address], [place] [address] Jan, [facility] [address] [id number] [address] [place] [address], [place] [address] Nov, [facility] [address] [id number] [address] [place] [address], [place] [address] Nov, [facility] [address] [id number] [address] [place] [address], [place] [address] Nov, [facility] [address] [id number] [address] [place] [address], [place] [address] Oct, [facility] [address] [id number] [address] [place] [address], [place] [address] Oct, [facility] [address] [id number] [address] [place] [address], [place] [address] Oct, [facility] [address] [id number] [address] [place] [address], [place] [address] Oct, [facility] [address] [id number] [address] [place] [address], [place] [address] Oct, [facility] [address] [id number] [address] [place] [address], [place] [address] Oct, [facility] [address] [id number] [address] [place] [address], [place] [address] Oct, [facility] [address] [id number] [address] [place] [address], [place] [address] Oct, [facility] [address] [id number] [address] [place] [address], [place] [address] Oct, [facility] [address] [id number] [address] [place] [address], [place] [address] Sep, [facility] [address] [id number] [address] [place] [address], [place] [address] Sep, [facility] [address] [id number] [address] [place] [address], [place] [address] Sep, [facility] [address] [id number] [address] [place] [address], [place] [address] Sep, [facility] [address] [id number] [address] [place] [address], [place] [address] Sep, [facility] [address] [id number] [address] [place] [address], [place] [address] Sep, [facility] [address] [id number] [address] [place] [address], [place] [address] Sep, [facility] [address] [id number] [address] [place] [address], [place] [address] Sep, [facility] [address] [id number] [address] [place] [address], [place] [address] Sep, [facility] [address] [id number] [address] [place] [address], [place] [address] August, [facility] [address] [id number] [address] [place] [address], [place] [address] August, [facility] [address] [id number] [address] [place] [address], [place] [address] August, [facility] [address] [id number] [address] [place] [address], [place] [address] August, [facility] [address] [id number] [address] [place] [address], [place] [address] August, [facility] [address] [id number] [address] [place] [address], [place] [address] August, [facility] [address] [id number] [address] [place] [address], [place] [address] Jul, [facility] [address] [id number] [address] [place] [address], [place] [address] Jul, [facility] [address] [id number] [address] [place] [address], [place] [address] Jul, [facility] [address] [id number] [address] [place] [address], [place] [address] Jul, [facility] [address] [id number] [address] [place] [address], [place] [address] Jul, [facility] [address] [id number] [address] [place] [address], [place] [address] Jul, [facility] [address] [id number] [address] [place] [address], [place] [address] Jun, [facility] [address] [id number] [address] [place] [address], [place] [address] Jun, [facility] [address] [id number] [address] [place] [address], [place] [address] May, [facility] [address] [id number] [address] [place] [address], [place] [address] May, [facility] [address] [id number] [address] [place] [address], [place] [address] May, [facility] [address] [id number] [address] [place] [address], [place] [address] May, [facility] [address] [id number] [address] [place] [address], [place] [address] Apr, [facility] [address] [id number] [address] [place] [address], [place] [address] Apr, [facility] [address] [id number] [address] [place] [address], [place] [address] 18 Mar, 2013 [facility] [address] [id number] [address] [place] [address], [place] [address] 18 Mar, 2013 [facility] [address] [id number] [address] [place] [address], [place] [address] 17 Mar, 2013 [facility] [address] [id number] [address] [place] [address], [place] [address] 17 Mar, 2013 [facility] [address] [id number] [address] [place] [address], [place] [address] Mar, [facility] [address] [id number] [address] [place] [address], [place] [address] Mar, [facility] [address] [id number] [address] [place] [address], [place] [address] Feb, [facility] [address] [id number] [address] [place] [address], [place] [address] Feb, [facility] [address] [id number] [address] [place] [address], [place] [address] 14 Feb, 2013 [facility] [address] [id number] [address] [place] [address], [place] [address] 14 Feb, 2013 [facility] [address] [id number] [address] [place] [address], [place] [address] 05 Feb, 2013 [facility] [address] [id number] [address] [place] [address], [place] [address] 05 Feb, 2013 [facility] [address] [id number] [address] [place] [address], [place] [address] 24 Jan, 2013 [facility] [address] [id number] [address] [place] [address], [place] [address] 24 Jan, 2013 [facility] [address] [id number] [address] [place] [address], [place] [address] Jan, [facility] [address] [id number] [address] [place] [address], [place] [address] Jan, [facility] [address] [id number] [address] [place] [address], [place] [address] Jan, [facility] [address] [id number] [address] [place] [address], [place] [address] Jan, [facility] [address] [id number] [address] [place] [address], [place] [address] Dec, [facility] [address] [id number] [address] [place] [address], [place] [address] Dec, [facility] [address] [id number] [address] [place] [address], [place] [address] Nov, [facility] [address] [id number] [address] [place] [address], [place] [address] Nov, [facility] [address] [id number] [address] [place] [address], [place] [address] Oct, [facility] [address] [id number] [address] [place] [address], [place] [address] Oct, [facility] [address] [id number] [address] [place] [address], [place] [address] Oct, [facility] [address] [id number] [address] [place] [address], [place] [address] Oct, [facility] [address] [id number] [address] [place] [address], [place] [address] Oct, [facility] [address] [id number] [address] [place] [address], [place] [address] Oct, [facility] [address] [id number] [address] [place] [address], [place] [address] Sep, [facility] [address] [id number] [address] [place] [address], [place] [address] Sep, [facility] [address] [id number] [address] [place] [address], [place] [address] Sep, [facility] [address] [id number] [address] [place] [address], [place] [address] Sep, [facility] [address] [id number] [address] [place] [address], [place] [address] August, [facility] [address] [id number] [address] [place] [address], [place] [address] August, [facility] [address] [id number] [address] [place] [address], [place] [address] August, [facility] [address] [id number] [address] [place] [address], [place] [address] August, [facility] [address] [id number] [address] [place] [address], [place] [address] August, [facility] [address] [id number] [address] [place] [address], [place] [address] Jul, [facility] [address] [id number] [address] [place] [address], [place] [address] Jul, [facility] [address] [id number] [address] [place] [address], [place] [address] Jul, [facility] [address] [id number] [address] [place] [address], [place] [address] Jul, [facility] [address] [id number] [address] [place] [address], [place] [address] Jul, [facility] [address] [id number] [address] [place] [address], [place] [address] Jul, [facility] [address] [id number] [address] [place] [address], [place] [address] Jul, [facility] [address] [id number] [address] [place] [address], [place] [address] Jul, [facility] [address] [id number] [address] [place] [address], [place] [address] Jul, [facility] [address] [id number] [address] [place] [address], [place] [address] Jul, [facility] [address] [id number] [place] [id number] Jun, [facility] [address] [id number] [address] [place] [address], [place] [address] Jun, [facility] [address] [id number] [address] [place] [address], [place] [address] Jun, [facility] [address] [id number] [address] [place] [address], [place] [address] Jun, [facility] [address] [id number] [address] [place] [address], [place] [address] Jun, [facility] [address] [id number] [address] [place] [address], [place] [address] May, [facility] [address] [id number] [address] [place] [address], [place] [address] May, [facility] [address] [id number] [address] [place] [address], [place] [address] May, [facility] [address] [id number] [address] [place] [address], [place] [address] Apr, [facility] [address] [id number] [address] [place] [address], [place] [address] Apr, [facility] [address] [id number] [address] [place] [address], [place] [address] Apr, [facility] [address] [id number] [address] [place] [address], [place] [address] Apr, [facility] [address] [id number] [address] [place] [address], [place] [address] Apr, [facility] [address] [id number] [address] [place] [address], [place] [address] Apr, [facility] [address] [id number] [address] [place] [address], [place] [address] Mar, [facility] [address] [id number] [address] [place] [address], [place] [address] Mar, [facility] [address] [id number] [address] [place] [address], [place] [address] Mar, [facility] [address] [id number] [address] [place] [address], [place] [address] Mar, [facility] [address] [id number] [address] [place] [address], [place] [address] Feb, [facility] [address] [id number] [address] [place] [address], [place] [address] Feb, [facility] [address] [id number] [address] [place] [address], [place] [address] Feb, [facility] [address] [id number] [address] [place] [address], [place] [address] Feb, [facility] [address] [id number] [address] [place] [address], [place] [address] Feb, [facility] [address] [id number] [address] [place] [address], [place] [address] Feb, [facility] [address] [id number] [address] [place] [address], [place] [address] Feb, [facility] [address] [id number] [address] [place] [address], [place] [address] Feb, [facility] [address] [id number] [address] [place] [address], [place] [address] Feb, [facility] [address] [id number] [address] [place] [address], [place] [address] Feb, [facility] [address] [id number] [address] [place] [address], [place] [address] Feb, [facility] [address] [id number] [address] [place] [address], [place] [address] Feb, [facility] [address] [id number] [address] [place] [address] Feb, [facility] [address] [id number] [address] [place] [address] Feb, [facility] [address] [id number] [address] [place] [address] Feb, [facility] [address] [id number] [address] [place] [address] Feb, [facility] [address] [id number] [address] [place] [address] Jan, [facility] [address] [id number] [address] [place] [address], [place] [address] Jan, [facility] [address] [id number] [address] [place] [address] Jan, [facility] [address] [id number] [address] [place] [address] Jan, [facility] [address] [id number] [address] [place] [address] Jan, [facility] [address] [id number] [address] [place] [address] Jan, [facility] [address] [id number] [address] [place] [address] Jan, [facility] [address] [id number] [address] [place] [address] 16 Jan, 2012 [facility] [address] [id number] [address] [place] [address] 16 Jan, 2012 [facility] [address] [id number] [address] [place] [address] 15 Jan, 2012 [facility] [address] [id number] [address] [place] [address] Jan, [facility] [address] [id number] [address] [place] [address] Jan, [facility] [address] [id number] [facility] [place] [address] 26 Sep, 2011 [facility] [address] [id number] [address] [place] [address], [place] [address] 26 Sep, 2011 [facility] [address] [id number] [address] [place] [address], [place] [address] 24 Sep, 2011 [facility] [address] [id number] [address] [place] [address], [place] [address] 23 Sep, 2011 [facility] [address] [id number] [address] [place] [address], [place] [address] 22 Sep, 2011 [facility] [address] [id number] [address] [place] [address], [place] [address] 21 Sep, 2011 [facility] [address] [id number] [address] [place] [address], [place] [address] 20 Sep, 2011 [facility] [address] [id number] [address] [place] [address], [place] [address] 20 Sep, 2011 [facility] [address] [id number] [address] [place] [address], [place] [address] 07 Sep, 2011 [facility] [address] [id number] [address] [place] [address], [place] [address] 06 Sep, 2011 [facility] [address] [id number] [address] [place] [address], [place] [address] 06 Sep, 2011 [facility] [address] [id number] [address] [place] [address], [place] [address] 05 Sep, 2011 [facility] [address] [id number] [address] [place] [address], [place] [address] 23 Nov, 2011 [facility] [address] [id number] [address] [place] [address], [place] [address] 17 Nov, 2011 [facility] [address] [id number] [address] [place] [address], [place] [address] 13 Nov, 2011 [facility] [address] [id number] [address] [place] [address], [place] [address] Nov, [facility] [address] [id number] [address] [place] [address], [place] [address] Nov, [facility] [address] [id number] [address] [place] [address], [place] [address] Nov, [facility] [address] [id number] [address] [place] [address], [place] [address] Nov, [facility] [address] [id number] [address] [place] [address], [place] [address] Nov, [facility] [address] [id number] [address] [place] [address], [place] [address] Oct, [facility] [address] [id number] [address] [place] [address], [place] [address] Oct, [facility] [address] [id number] [address] [place] [address], [place] [address] Oct, [facility] [address] [id number] [address] [place] [address], [place] [address] Oct, [facility] [address] [id number] [address] [place] [address], [place] [address] Oct, [facility] [address] [id number] [address] [place] [address], [place] [address] Oct, [facility] [address] [id number] [address] [place] [address], [place] [address] Oct, [facility] [address] [id number] [address] [place] [address], [place] [address] Sep, [facility] [address] [id number] [address] [place] [address], [place] [address] Sep, [facility] [address] [id number] [address] [place] [address], [place] [address] August, [facility] [address] [id number] [address] [place] [address], [place] [address] August, [facility] [address] [id number] [address] [place] [address], [place] [address] August, [facility] [address] [id number] [address] [place] [address], [place] [address] August, [facility] [address] [id number] [address] [place] [address], [place] [address] Jul, [facility] [address] [id number] [address] [place] [address], [place] [address] Jul, [facility] [address] [id number] [address] [place] [address], [place] [address] Jul, [facility] [address] [id number] [address] [place] [address], [place] [address] Jul, [facility] [address] [id number] [address] [place] [address], [place] [address] Jul, [facility] [address] [id number] [address] [place] [address], [place] [address] Jul, [facility] [address] [id number] [address] [place] [address], [place] [address] Jul, [facility] [address] [id number] [address] [place] [address], [place] [address] Jul, [facility] [address] [id number] [address] [place] [address], [place] [address] Jul, [facility] [address] [id number] [address] [place] [address], [place] [address] 23 Jun, 2011 [facility] [address] [id number] [address] [place] [address], [place] [address] 19 Jun, 2011 [facility] [address] [id number] [address] [place] [address], [place] [address] 15 Jun, 2011 [facility] [address] [id number] [address] [place] [address], [place] [address] 14 Jun, 2011 [facility] [address] [id number] [address] [place] [address], [place] [address] 12 Jun, 2011 [facility] [address] [id number] [address] [place] [address], [place] [address] Jun, [facility] [address] [id number] [address] [place] [address], [place] [address] Jun, [facility] [address] [id number] [address] [place] [address], [place] [address] May, [facility] [address] [id number] [address] [place] [address], [place] [address] May, [facility] [address] [id number] [address] [place] [address], [place] [address] May, [facility] [address] [id number] [address] [place] [address], [place] [address] May, [facility] [address] [id number] [address] [place] [address], [place] [address] May, [facility] [address] [id number] [address] [place] [address], [place] [address] Apr, [facility] [address] [id number] [address] [place] [address], [place] [address] Apr, [facility] [address] [id number] [address] [place] [address], [place] [address] Apr, [facility] [address] [id number] [address] [place] [address], [place] [address] Apr, [facility] [address] [id number] [address] [place] [address], [place] [address] Apr, [facility] [address] [id number] [address] [place] [address], [place] [address] Mar, [facility] [address] [id number] [address] [place] [address], [place] [address] Mar, [facility] [address] [id number] [address] [place] [address], [place] [address] Mar, [facility] [address] [id number] [address] [place] [address] Mar, [facility] [address] [id number] [address] [place] [address], [place] [address] Mar, [facility] [address] [id number] [address] [place] [address] Mar, [facility] [facility] [address] [id number] [address] [place] [address], [place] [address] Mar, [facility] [address] [id number] [address] [place] [id number] Feb, [facility] [address] [id number] [address] [place] [address], [place] [address] Feb, [facility] [address] [id number] [address] [place] [address], [place] [address] Feb, [facility] [address] [id number] [address] [place] [address], [place] [address] Feb, [facility] [address] [id number] [address] [place] [address], [place] [address] Jan, [facility] [address] [id number] [address] [place] [address], [place] [address] Jan, [facility] [address] [id number] [address] [place] [address], [place] [address] Jan, [facility] [address] [id number] [address] [place] [phone] Jan, [facility] [address] [id number] [address] [place] [id number] Nov, [facility] [address] [id number] [address] [place] [address], [place] [address] Mar, [facility] [address] [id number] [address] [place] [address], [place] [address] Mar, [facility] [address] [id number] [address] [place] [address], [place] [address] Mar, [facility] [address] [id number] [address] [place] [id number] Mar, [facility] [address] [facility] [id number] [address] [place] [phone] Mar, [facility] [address] [id number] [address] [place] [id number] Mar, [facility] [address] [facility] [id number] [address] [place] [phone] Feb, [facility] [address] [id number] [address] [place] [phone] Feb, [facility] [address] [facility] [id number] [address] [place] [phone] Jan, [facility] [address] [facility] [id number] [address] [place] [phone] Jan, [facility] [address] [facility] [id number] [address] [place] [phone] Jan, IMMUNIZATIONS No Known Immunizations SOCIAL HISTORY Never Assessed REASON FOR VISIT PLAN OF CARE VITAL SIGNS Height 63 in 2014-01-19 Weight 271.1 lbs 2014-01-19 Temperature 99 degrees Fahrenheit 2014-01-19 Heart Rate 88 bpm 2014-01-19 Respiratory Rate 20 2014-01-19 Blood pressure systolic 168 mmHg 2014-01-19 Blood pressure diastolic 94 mmHg 2014-01-19 MEDICATIONS Unknown Medications RESULTS No Results PROCEDURES Procedure Date Ordered Result Body Site ASSAY THYROID STIM HORMONE Jan 19, 2014 COMPLETE CBC W/AUTO DIFF WBC Jan 19, 2014 IRON BINDING TEST Jan 19, 2014 ASSAY OF IRON Jan 19, 2014 ASSAY OF FERRITIN Jan 19, 2014 URINALYSIS, AUTO W/SCOPE Jan 19, 2014 RENAL FUNCTION PANEL Jan 19, 2014 LIPID PANEL Jan 19, 2014 ASSAY OF VITAMIN D Jan 19, 2014 VENIPUNCT, ROUTINE* Jan 19, 2014 INSTRUCTIONS MEDICATIONS ADMINISTERED No Known Medications [...] of 2009) Surgical History Esophageal surgery-Dr. Cruz 6 Surgical History Colonoscopy History of Polyp s No Polyps on 2015 scope due to have repeat 2020 09-2015 & 2007 Surgical History Bladder surgery Candler [...]
--- OUTSIDE RECORDS SUMMARY | 2019-08-01 10:13 | XMS REPORT ---
Author Author Lola Tyson Doctor Organization [facility] Address Unknown Phone Unavailable Care Team Providers Care Customer Operations Intern Name Role Phone Migration, Doctor Unavailable Unavailable PROBLEMS Type Condition ICD9-CM Code [id number] Code Onset Dates Condition S tatus SNOMED Code Problem Hypothyroid E03.9 Active 39797739 Problem Asthma J45.909 Active 301175248 Problem Insomnia G47.00 Active 696940194 Problem Depressed F32.9 Active 77358279 Problem Palpitations R00.2 Active 5567244 2 Problem Functional diarrhea K59.1 Active 06336984 Problem Chronic kidney disease, stage 4 (severe) N18.4 Active 411971225 Problem Degenerative tear of medial meniscus of left knee M23.204 Active 047203425 Problem Dysthymic disorder F34.1 Active 7 4136014 Problem Primary osteoarthritis of left knee M17.12 Active 643287326 Problem Generalized anxiety disorder F41.1 A ctive 26344935 Problem Restless leg G25.81 Active 5609672 8 Problem Coronary artery disease invo lving yocha dehe coronary artery of y[place] de[place] heart, angina presence unspecified I25.10 Active 5749785397580 Problem Hypokalemia E87.6 Active 13206721 Problem Other seasonal allergic rhinitis J30.2 Active 865642353 Problem Mixed stress and urge urinary incontinence N39.46 Active 701599140 Problem Fibromyalgia M79.7 Active 5960645 05 Problem Essential (primary) hypertension I10 Active 37027123 Problem Long-term use of high-risk medication Z79.899 Active 242486429 Problem Vitamin D deficiency E55.9 Active 14209969 Problem Anemia in chronic kidney disease D63.1 Active 933467860864600 Problem Low back pain M54.5 Active 737298 009 Problem Chronic kidney disease, unspecified N18.9 Active 962089798 Problem Abnormal chest CT R93.8 Active 44 4850128 Problem Mood disorder F39 Active 482201 05 Problem Stage 3 chronic kidney disease N18.3 Active 118622259 Problem Body mass index (BMI) of 40.0-44.9 in adult Z68.41 Active 838598218 Problem Other chronic pain G89.29 Active 8 7019247 Problem Asthma with acute exacerbation in adult J45.901 Active 024381823 Problem Major depressive disorder, recurrent, moderate F33 .1 Active 531451678 Problem History of colon polyps Z86.010 Active 401174852 Problem History of anemia Z86.2 Active 27 4349710 Problem Seasonal allergic rhinitis due to pollen J30.1 Active 21455179 Problem Restless leg syndrome G25.81 Active 42324707 Problem Chronic pain syndrome G89.4 Active 237427200 Problem Perimenopausal vasomotor symptoms N95.1 Active 242806408 ALLERGIES No Information ENCOUNTERS Encounter Location Date Diagnosis [facility] [address] [facility] [place] [id number] [address] [place] [address] Dec, [facility] [address] [facility] [place] [id number] [address] [place] [address] Nov, [facility] [address] [place] [id number] [address] [place] [address] Nov, [facility] [address] [place] [id number] [address] [place] [address] Nov, Restless leg syndrome G25.81 [facility] [address] [place] [id number] [address] [place] [address] Nov, Morbid obesity E66.01 ; Rest less leg syndrome G25.81 ; Pain in right shoulder M25.511 ; Other chronic pain G89.29 ; Screening for breast cancer Z12.39 and Insomnia G47.00 [facility] [address] [facility] [place] [id number] [address] [place] [address] Nov, [facility] [address] [facility] [place] [id number] [address] [place] [address] Oct, Major depressive disorder, r ecurrent, moderate F33.1 ; Generalized anxiety disorder F41.1 and Dysthymic disorder F34.1 [facility] [address] [facility] [place] [id number] [address] [place] [address] Oct, [facility] [address] [id number] [address] [place] [address] Oct, Cellulitis of left lower ext remity L03.116 and Morbid obesity E66.01 [facility] [address] [id number] [address] [place] [id number] Oct, [facility] [address] [id number] [address] [place] [address] Oct, [facility] [address] [id number] [address] [place] [address] Oct, Generalized anxiety disorder F41.1 and Major depressive disorder, recurrent episode with anxious distress F33.9 [facility] [address] [id number] [address] [place] [id number] Oct, [facility] [address] [id number] [address] [place] [phone] Oct, Chronic pain syndrome G89.4 [facility] [address] [id number] [address] [place] [id number] Oct, Chronic pain syndrome G89.4 [facility] [address] [id number] [address] [place] [address] Oct, UTI symptoms R39.9 ; Acute c ystitis without hematuria N30.00 and Morbid obesity E66.01 [facility] [address] [id number] [address] [place] [address] Oct, [facility] [address] [id number] [address] [place] [address] Oct, Chronic pain syndrome G89.4 [facility] [address] [id number] [address] [place] [id number] Sep, [facility] [address] [id number] [address] [place] [address] Sep, Generalized anxiety disorder F41.1 and Major depressive disorder, recurrent episode with anxious distress F33.9 [facility] [address] [facility] [place] [id number] [address] [place] [id number] 17 Sep, 2018 Chronic kidney disease, stag e 4 (severe) N18.4 [facility] [address] [facility] [place] [id number] [address] [place] [id number] Sep, Fibromyalgia M79.7 and Chron ic pain syndrome G89.4 [place] [address] [place] [id number] [address] [place] [address] Sep, [address] [address] Sep, Chronic pain syndrome G89.4 [place] [address] [facility] [place] [id number] [address] [place] [address] Sep, [place] [address] [place] [id number] [address] [place] [address] Sep, Chronic pain syndrome G89.4 ; Fibromyalgia M79.7 and Morbid obesity E66.01 [place] [address] [place] [id number] [address] [place] [address] August, Generalized anxiety disorder F41.1 and Major depressive disorder, recurrent episode with anxious distress F33.9 [place] [address] [place] [id number] [address] [place] [address] August, Fibromyalgia M79.7 [place] [address] [place] [id number] [place] [address] August, Restless leg syndrome G25.81 ; Vitamin D deficiency E55.9 ; Urinary tract infection without hematuria, site unspecified N39.0 ; Pain in right shoulder M25.511 ; Other chronic pain G89.29 ; Biceps tendinitis on right M75.21 and Morbid obesity E66.01 [place] [address] [place] [id number] [place] [address] Jul, Urinary tract infection with out hematuria, site unspecified N39.0 and Morbid obesity E66.01 [place] [address] [place] [id number] [address] [place] [address] Jul, [facility] [address] [facility] [place] [id number] [address] [place] [address] Jul, [facility] [address] [facility] [place] [id number] [address] [place] [address] Jul, Fibromyalgia M79.7 [facility] [address] [facility] [place] [id number] [address] [place] [address] Jul, Acute pain of right shoulder M25.511 [facility] [address] [facility] [place] [id number] [address] [place] [address] Jul, Acute pain of right shoulder M25.511 and Morbid obesity E66.01 [facility] [address] [facility] [place] [id number] [address] [place] [address] Jun, [place] [address] [place] [id number] [place] [address] Jun, Generalized anxiety disorder F41.1 and Major depressive disorder, recurrent episode with anxious distress F33.9 [facility] [address] [facility] [place] [id number] [address] [place] [address] Jun, [place] [address] [place] [id number] [address] [place] [address] Jun, Fibromyalgia M79.7 [facility] [address] [facility] [place] [id number] [address] [place] [address] Jun, Acute pain of right shoulder M25.511 ; Acute pain of right hip M25.551 and Morbid obesity E66.01 [facility] [address] [facility] [place] [id number] [address] [place] [address] May, Burning with urination R30.0 ; Vaginal discharge N89.8 ; Chronic kidney disease, stage 4 (severe) N18.4 ; Body mass index (BMI) of 40.0-44.9 in adult Z68.41 and Morbid obesity E66.01 [facility] [address] [facility] [place] [id number] [address] [place] [address] May, Fibromyalgia M79.7 [facility] [address] [id number] [address] [place] [address] May, Generalized anxiety disorder F41.1 and Major depressive disorder, recurrent episode with anxious distress F33.9 [facility] [address] [id number] [address] [place] [address] Apr, [facility] [address] [facility] [place] [id number] [address] [place] [address] Apr, Fibromyalgia M79.7 [facility] [address] [id number] [address] [place] [address] Mar, Acute UTI N39.0 and Dysuria R30.0 [facility] [address] [facility] [place] [id number] [address] [place] [address] Mar, Fibromyalgia M79.7 [facility] [address] [facility] [place] [id number] [address] [place] [phone] 15 Feb, 2018 [facility] [address] [id number] [address] [place] [phone] Feb, [facility] [address] [facility] [place] [id number] [address] [place] [address] Feb, [facility] [address] [facility] [place] [id number] [address] [place] [address] Feb, Fibromyalgia M79.7 [facility] [address] [facility] [place] [id number] [address] [place] [phone] 08 Feb, 2018 Complicated UTI (urinary tra ct infection) N39.0 [facility] [address] [facility] [place] [id number] [address] [place] [address] Feb, [facility] [address] [facility] [place] [id number] [address] [place] [address] Jan, Generalized anxiety disorder F41.1 and Major depressive disorder, recurrent episode with anxious distress F33.9 [facility] [address] [facility] [place] [id number] [address] [place] [address] Jan, Acute conjunctivitis of left eye, unspecified acute conjunctivitis type H10.32 [facility] [address] [id number] [address] [place] [address] Jan, [facility] [address] [facility] [place] [id number] [address] [place] [address] Jan, Acute non-recurrent maxillar y sinusitis J01.00 ; Dysuria R30.0 ; Perimenopausal vasomotor symptoms N95.1 and Fibromyalgia M79.7 [facility] [address] [id number] [address] [place] [address] Dec, Vitamin D deficiency E55.9 [facility] [address] [facility] [place] [id number] [address] [place] [id number] Dec, Vitamin D deficiency E55.9 [facility] [address] [facility] [place] [id number] [address] [place] [address] Dec, Vitamin D deficiency E55.9 [facility] [address] [facility] [place] [id number] [address] [place] [id number] Dec, [facility] [address] [facility] [place] [id number] [address] [place] [address] Dec, Fibromyalgia M79.7 [facility] [address] [facility] [place] [id number] [address] [place] [address] Nov, [facility] [address] [facility] [place] [id number] [address] [place] [address] Nov, [facility] [address] [facility] [place] [id number] [address] [place] [phone] Nov, [facility] [address] [facility] [place] [id number] [address] [place] [address] Nov, Fibromyalgia M79.7 ; Vision changes H53.9 ; Chest wall pain R07.89 and Chronic pain syndrome G89.4 [facility] [address] [facility] [place] [id number] [address] [place] [address] Nov, [facility] [address] [id number] [address] [place] [address] Nov, Rash of hands R21 [facility] [address] [id number] [address] [place] [address] Nov, Generalized anxiety disorder F41.1 and Major depressive disorder, recurrent episode with anxious distress F33.9 [place] [address] [id number] [address] [place] [address] Nov, Fibromyalgia M79.7 [place] [address] [id number] [address] [place] [id number] Nov, Complicated UTI (urinary tra ct infection) N39.0 [place] [address] [id number] [address] [place] [address] Oct, [place] [address] [id number] [address] [place] [address] Oct, Generalized anxiety disorder F41.1 and Major depressive disorder, recurrent episode with anxious distress F33.9 [place] [address] [id number] [address] [place] [address] Oct, [place] [address] [id number] [address] [place] [address] Oct, Fibromyalgia M79.7 [place] [address] [facility] [place] [id number] [address] [place] [address] Sep, Restless leg syndrome G25.81 and Restless leg G25.81 [place] [address] [id number] [address] [place] [address] Sep, [place] [address] [id number] [address] [place] [address] Sep, Seasonal allergic rhinitis d ue to pollen J30.1 ; Screening for breast cancer Z12.31 ; Chest pain at rest R07.9 ; Restless leg syndrome G25.81 ; Essential (primary) hypertension I10 and Depressed F32.9 [place] [address] [id number] [address] [place] [address] August, Fibromyalgia M79.7 [facility] [address] [id number] [address] [place] [address] August, [facility] [address] [facility] [place] [id number] [address] [place] [address] August, [facility] [address] [facility] [place] [id number] [address] [place] [address] August, Abnormal chest CT R93.8 [facility] [address] [id number] [address] [place] [address] August, Generalized anxiety disorder F41.1 and Major depressive disorder, recurrent episode with anxious distress F33.9 [facility] [address] [facility] [place] [id number] [address] [place] [address] August, Abnormal chest CT R93.8 [facility] [address] [facility] [place] [id number] [address] [place] [address] Jul, [facility] [address] [facility] [place] [id number] [address] [place] [address] Jul, Chronic kidney disease, stag e 4 (severe) N18.4 [facility] [address] [facility] [place] [id number] [address] [place] [address] Jul, [place] [address] [place] [id number] [address] [place] [address] Jul, Restless leg G25.81 ; Mixed stress and urge urinary incontinence N39.46 and Fibromyalgia M79.7 [facility] [address] [facility] [place] [id number] [address] [place] [address] Jul, Chronic kidney disease, stag e 4 (severe) N18.4 [facility] [address] [facility] [place] [id number] [address] [place] [address] Jun, Orthostatic hypotension I95. 1 ; Chronic kidney disease, stage 4 (severe) N18.4 ; Chest wall discomfort R07.89 and Body mass index (BMI) of 40.0- 44.9 in adult Z68.41 [facility] [address] [facility] [place] [id number] [address] [place] [address] Jun, [facility] [address] [facility] [place] [id number] [address] [place] [address] Jun, Orthostatic hypotension I95. 1 [facility] [address] [place] [id number] [place] [address] Jun, [facility] [address] [facility] [place] [id number] [address] [place] [address] Jun, Orthostatic hypotension I95. 1 ; Dysuria R30.0 and Acute cystitis without hematuria N30.00 [facility] [address] [place] [id number] [place] [address] Jun, [facility] [address] [place] [id number] [place] [address] Jun, Chronic kidney disease, stag e 4 (severe) N18.4 [facility] [address] [place] [id number] [place] [address] Jun, Fibromyalgia M79.7 [facility] [address] [place] [id number] [place] [phone] Jun, [facility] [address] [place] [id number] [place] [address] Jun, [facility] [address] [place] [id number] [place] [address] May, Abnormal chest [address] R93.8 and Stage 3 chronic kidney disease N18.3 [facility] [address] [place] [id number] [place] [address] May, Chronic kidney disease, stag e 4 (severe) N18.4 [facility] [address] [place] [id number] [address] [place] [address] May, Chronic kidney disease, stag e 4 (severe) N18.4 [facility] [address] [id number] [address] [place] [address] May, Abnormal chest [address] R93.8 [facility] [address] [id number] [address] [place] [phone] May, [facility] [address] [id number] [address] [place] [address] May, [facility] [address] [id number] [address] [place] [address] May, Generalized anxiety disorder F41.1 and Major depressive disorder, recurrent episode with anxious distress F33.9 [facility] [address] [id number] [address] [place] [address] May, Mood disorder F39 [place] [address] [facility] [place] [id number] [address] [place] [address] Apr, [place] [address] [facility] [place] [id number] [address] [place] [address] Apr, Infected skin lesion L08.9 a nd Muscle strain of right shoulder region, initial encounter S46.911A [place] [address] [id number] [address] [place] [address] Apr, Generalized anxiety disorder F41.1 and Major depressive disorder, recurrent episode with anxious distress F33.9 [place] [address] [id number] [address] [place] [address] Apr, [facility] [address] [id number] [address] [place] [address] Apr, Recent urinary tract infecti on Z87.440 and Hypothyroid E03.9 [facility] [address] [id number] [address] [place] [address] Apr, Generalized anxiety disorder F41.1 and Major depressive disorder, recurrent episode with anxious distress F33.9 [place] [address] [facility] [place] [id number] [address] [place] [address] Apr, Recent urinary tract infecti on Z87.440 [facility] [address] [facility] [place] [id number] [address] [place] [address] Mar, [facility] [address] [facility] [place] [id number] [address] [place] [address] Mar, Dysuria R30.0 ; Acute cystit is without hematuria N30.00 and BMI 40.0-44.9, adult Z68.41 [facility] [address] [facility] [place]] [id number] [address] [place] [phone] 14 Mar, 2017 [facility] [address] [facility] [place] [id number] [address] [place] [address] Mar, [place] [address] [place] [id number] [address] [place] [phone] Mar, Generalized anxiety disorder F41.1 and Major depressive disorder, recurrent episode with anxious distress F33.9 [place] [address] [facility] [place] [id number] [address] [place] [phone] Feb, Conjunctivitis, bacterial H1 0.9 [place] [address] [facility] [place] [id number] [address] [place] [id number] Feb, [facility] [place] [address] [facility] [place] [facility] [id number] [address] [place] [phone] Feb, Conjunctivitis, bacterial H1 0.9 [place] [address] [facility] [place] [facility] [id number] [address] [place] [id number] 15 Feb, 2017 [facility] [address] [facility] [place] [facility] [id number] [address] [place] [phone] 10 Feb, 2017 Dysuria R30.0 ; Acute cystit is N30.00 and BMI 40.0-44.9, adult Z68.41 [facility] [address] [facility] [place] [id number] [address] [place] [phone] 08 Feb, 2017 [place] [address] [facility] [place] [facility] [id number] [address] [place] [phone] Feb, Generalized anxiety disorder F41.1 and Major depressive disorder, recurrent episode with anxious distress F33.9 [place] [id number] [facility] [place] [id number] [address] [place] [phone] Feb, Mood disorder F39 and BMI 40 .0-44.9, adult Z68.41 [facility] [address] [place] [id number] [place] [phone] Jan, [place] [address] [place] [id number] [address] [place] [phone] Jan, [place] [address] [place] [id number] [place] [phone] Jan, Hypothyroid E03.9 [place] [address] [place] [id number] [place] [phone] Jan, [place] [address] [place] [id number] [place] [id number] Jan, Chronic kidney disease, unsp ecified N18.9 ; Hypokalemia E87.6 ; Essential (primary) hypertension I10 ; Fibromyalgia M79.7 ; Coronary artery disease involving yocha dehe coronary artery of yocha dehe heart, angina presence unspecified I25.10 ; Hypothyroid E03.9 and Encounter for immunization Z23 [place] [address] [place] [id number] [address] [place] [phone] Jan, Hypothyroid E03.9 [place] [address] [facility] [place] [facility] [id number] [address] [place] [phone] Jan, [place] [address] [facility] [place] [id number] [address] [place] [address] Dec, Vitamin D deficiency E55.9 [place] [address] [place] [id number] [address] [place] [address] Dec, Primary osteoarthritis of le ft knee M17.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 [place] [address] [place] [id number] [address] [place] [id number] 19 Sep, 2017 Fibromyalgia M79.7 [facility] [address] [id number] [address] [place] [phone] 18 Sep, 2016 Mood disorder F39 [facility] [address] [id number] [address] [place] [phone] 13 Dec, 2016 [facility] [address] [id number] [address] [place] [phone] 13 Dec, 2016 Generalized anxiety disorder F41.1 and Major depressive disorder, recurrent episode with anxious distress F33.9 [facility] [address] [id number] [address] [place] [phone] 11 Dec, 2016 [facility] [address] [id number] [address] [place] [phone] 08 Dec, 2016 Streptococcal meningitis G00 .2 [facility] [address] [id number] [address] [place] [phone] 07 Dec, 2016 Streptococcal meningitis G00 .2 [facility] [address] [id number] [address] [place] [phone] 07 Dec, 2016 [facility] [address] [id number] [address] [place] [id number] 06 Dec, 2016 Streptococcal meningitis G00 .2 [facility] [address] [id number] [address] [place] [phone] 06 Dec, 2016 [facility] [address] [id number] [address] [place] [phone] 06 Dec, 2016 Major depressive disorder, r ecurrent episode with anxious distress F33.9 [facility] [address] [id number] [address] [place] [phone] Nov, Fever, unspecified fever cau se R50.9 [facility] [address] [id number] [address] [place] [phone] 24 Nov, 2016 [facility] [address] [id number] [address] [place] [id number] 16 Nov, 2016 Hypothyroid E03.9 [facility] [address] [id number] [address] [place] [phone] Nov, Generalized anxiety disorder F41.1 and Major depressive disorder, recurrent episode with anxious distress F33.9 [facility] [address] [id number] [address] [place] [id number] Nov, [facility] [address] [id number] [address] [place] [id number] Oct, Dental examination Z01.20 [facility] [address] [id number] [address] [place] [phone] Oct, Generalized anxiety disorder F41.1 and Major depressive disorder, recurrent episode with anxious distress F33.9 [facility] [address] [facility] [place] [id number] [address] [place] [phone] Oct, Chronic kidney disease, stag e 4 (severe) N18.4 [facility] [address] [facility] [place] [id number] [address] [place] [phone] Oct, [facility] [address] [facility] [place] [id number] [address] [place] [phone] Oct, Fibromyalgia M79.7 [facility] [address] [facility] [place] [id number] [address] [place] [phone] Oct, [facility] [address] [facility] [place] [id number] [address] [place] [phone] Oct, Generalized anxiety disorder F41.1 ; Major depressive disorder, recurrent episode with anxious distress F33.9 and Bipolar disorder, current episode manic without psychotic features F31.10 [facility] [address] [id number] [address] [place] [phone] Sep, [facility] [address] [facility] [place] [id number] [address] [place] [phone] Sep, [facility] [address] [facility] [place] [id number] [address] [place] [phone] Sep, Vitamin D deficiency E55.9 [facility] [address] [facility] [place] [id number] [address] [place] [phone] 14 Sep, 2016 Vitamin D deficiency E55.9 [place] [address] [facility] [place] [id number] [address] [place] [phone] Sep, [place] [address] [facility] [place] [id number] [address] [place] [address] Sep, Chronic kidney disease, stag e 4 (severe) N18.4 ; Hypothyroid E03.9 ; Restless leg G25.81 ; Fibromyalgia M79.7 ; Essential (primary) hypertension I10 ; Vitamin D deficiency E55.9 ; Dyspepsia R10.13 ; Anemia in chronic kidney disease D63.1 ; Chronic kidney disease, unspecified N18.9 ; Coronary artery disease involving yocha dehe coronary artery of yocha dehe heart, angina presence unspecified I25.10 ; Screening breast examination Z12.39 and Low back pain M54.5 [place] [address] [facility] [place] [id number] [address] [place] [address] August, Generalized anxiety disorder F41.1 and Major depressive disorder, recurrent episode with anxious distress F33.9 [place] [address] [facility] [place] [id number] [address] [place] [phone] August, Generalized anxiety disorder F41.1 and Major depressive disorder, recurrent episode with anxious distress F33.9 [place] [address] [facility] [place] [id number] [address] [place] [address] August, Fibromyalgia M79.7 [place] [address] [facility] [place] [id number] [address] [place] [phone] Jul, Generalized anxiety disorder F41.1 and Major depressive disorder, recurrent episode with anxious distress F33.9 [place] [address] [facility] [place] [id number] [address] [place] [phone] Jul, Fibromyalgia M79.7 [place] [address] [facility] [place] [id number] [address] [place] [address] Jul, Generalized anxiety disorder F41.1 [place] [address] [address] May, [place] [address] [address] May, Hypothyroid E03.9 [place] [address] [address] May, Chronic kidney disease, stag e 4 (severe) N18.4 ; Hypothyroid E03.9 ; Restless leg G25.81 ; Fibromyalgia M79.7 ; Essential (primary) hypertension I10 ; Vitamin D deficiency E55.9 ; Dyspepsia R10.13 ; Acute non-recurrent maxillary sinusitis J01.00 ; Anemia in chronic kidney disease D63.1 ; Chronic kidney disease, unspecified N18.9 and Coronary artery disease involving yocha dehe coronary artery of yocha dehe heart, angina presence unspecified I25.10 [place] [address] [address] May, Vitamin D deficiency, unspec ified E55.9 [place] [address] [address] May, Generalized anxiety disorder F41.1 and Major depressive disorder, recurrent episode with anxious distress F33.9 [place] [address] [address] Apr, Pain in right knee M25.561 a nd Pain in left knee M25.562 [place] [address] [place] [id number] [address] [place] [address] Apr, [place] [address] [address] Apr, [place] [address] [address] Apr, [place] [address] [address] Mar, Generalized anxiety disorder F41.1 and Major depressive disorder, recurrent episode with anxious distress F33.9 [facility] [address] [facility] [place] [id number] [address] [place] [phone] Mar, Generalized anxiety disorder F41.1 and Major depressive disorder, recurrent episode with anxious distress F33.9 [facility] [address] [facility] [place] [id number] [address] [place] [phone] Mar, [facility] [address] [place] [id number] [address] [place] [phone] Mar, [facility] [address] [place] [id number] [address] [place] [address] Mar, [place] [address] [place] [id number] [place] [address] Mar, Asthma J45.909 and Fibromyal elvira M79.7 [place] [address] [place] [id number] [place] [address] Mar, Chronic kidney disease, stag e 4 (severe) N18.4 ; Vitamin D deficiency E55.9 and Essential (primary) hypertension I10 [place] [address] [place] [id number] [address] [place] [phone] Feb, [place] [address] [place] [id number] [address] [place] [address] Feb, Dysuria R30.0 ; Mixed stress and urge urinary incontinence N39.46 ; Fibromyalgia M79.7 and Chronic kidney disease, stage IV (severe) N18.4 [place] [address] [place] [id number] [address] [place] [id number] Feb, Chronic kidney disease, stag e 4 (severe) N18.4 [place] [address] [place] [id number] [address] [place] [address] Feb, Chronic kidney disease, stag e 4 (severe) N18.4 [place] [address] [place] [id number] [address] [place] [address] Feb, [place] [address] [address] Feb, Vitamin D deficiency, unspec ified E55.9 [facility] [address] [address] Jan, [facility] [address] [address] Jan, [facility] [address] [address] Dec, [facility] [address] [address] Dec, Chronic kidney disease, stag e 4 (severe) N18.4 [facility] [address] [address] Dec, Dysthymic disorder F34.1 and Generalized anxiety disorder F41.1 [facility] [address] [address] Dec, [facility] [address] [address] Dec, [place] [address] [address] Dec, Dysthymic disorder F34.1 and Generalized anxiety disorder F41.1 [place] [address] [address] Dec, Dysuria R30.0 ; Chronic kidn ey disease, stage 4 (severe) N18.4 ; Hypertension I10 ; Dyspepsia R10.13 ; Yeast dermatitis B37.2 ; Palpitations R00.2 ; Hypothyroid E03.9 ; Functional diarrhea K59.1 and Other seasonal allergic rhinitis J30.2 [facility] [address] [address] Dec, [facility] [address] [address] Nov, Dysuria R30.0 and Stress inc ontinence N39.3 [facility] [address] [address] Nov, [facility] [address] [address] Nov, [facility] [address] [address] Nov, Osteoarthritis of knees, jose ateral M17.0 [facility] [address] [address] Nov, Dysthymic disorder F34.1 and Generalized anxiety disorder F41.1 [place] [address] [address] Nov, [place] [address] [address] Nov, [place] [address] [address] Nov, Urgency of urination R39.15 [place] [address] [address] Nov, [place] [address] [address] Nov, Chronic kidney disease, stag e 4 (severe) N18.4 [place] [address] [address] Oct, Hypertension I10 ; Coronary artery disease involving yocha dehe coronary artery of yocha dehe heart, angina presence unspecified I25.10 ; Palpitations R00.2 ; Hypothyroid E03.9 ; Right foot pain M79.671 ; Functional diarrhea K59.1 and Other seasonal allergic rhinitis J30.2 [place] [address] [address] Oct, Dysthymic disorder F34.1 and Generalized anxiety disorder F41.1 [place] [address] [place] [address] Sep, [place] [address] [address] Sep, [place] [address] [place] [id number] [place] [address] Sep, [place] [address] [address] Sep, [place] [address] [address] Sep, [place] [address] [address] Sep, Dysthymic disorder F34.1 and Generalized anxiety disorder F41.[address] [address] 16 Sep, 2015 Asthma with acute exacerbati on in adult J45.901 ; Dysuria R30.0 ; Chronic kidney disease, stage 4 (severe) N18.4 and History of anemia Z86.2 [place] [address] [address] Sep, Generalized anxiety disorder F41.1 and Dysthymic disorder F34.1 [place] [address] [address] August, Screening breast examination Z12.39 and Acute recurrent maxillary sinusitis J01.01 [place] [address] [address] August, Osteoarthritis of knees, jose ateral M17.0 [place] [id number] [place] [address] August, Chronic kidney disease, stag e 4 (severe) N18.4 ; Acute non- recurrent maxillary sinusitis J01.00 ; Urinary problem R39.89 ; Bowel habit changes R19.4 ; Functional diarrhea K59.1 and History of colon polyps Z86.010 [facility] [address] [id number] [address] [place] [address] Jul, Dysthymic disorder F34.1 and Generalized anxiety disorder F41.1 [facility] [address] [facility] [place] [id number] [address] [place] [address] Jul, [facility] [address] [facility] [place] [id number] [address] [place] [address] Jul, Dysthymic disorder F34.1 ; G eneralized anxiety disorder F41.1 and halfway use of drug Z79.899 [facility] [address] [facility] [place] [id number] [address] [place] [address] Jul, [facility] [address] [facility] [place] [id number] [address] [place] [address] Jun, [facility] [address] [facility] [place] [id number] [address] [place] [address] Jun, [facility] [address] [facility] [place] [id number] [address] [place] [address] May, [facility] [address] [facility] [place] [id number] [address] [place] [address] May, Dysthymic disorder F34.1 and Generalized anxiety disorder F41.1 [facility] [address] [facility] [place] [id number] [address] [place] [address] Apr, Kidney disease N28.9 [facility] [address] [facility] [place] [id number] [address] [place] [address] Apr, Generalized anxiety disorder F41.1 and Dysthymic disorder F34.1 [facility] [address] [facility] [place] [id number] [address] [place] [address] Apr, Chronic kidney disease, stag e 4 (severe) N18.4 [facility] [address] [facility] [place] [id number] [address] [place] [address] 18 Luis, 2016 Generalized anxiety disorder F41.1 ; Major depression, recurrent F33.9 and Sleep disturbance G47.9 [place] [address] [address] Mar, Generalized anxiety disorder F41.1 and Dysthymic disorder F34.1 [facility] [address] [address] Mar, Generalized anxiety disorder F41.1 ; Dysthymic disorder F34.1 and Insomnia G47.00 [facility] [address] [address] Mar, [place] [address] [address] Mar, [place] [address] [address] Mar, Osteoarthritis of knees, jose ateral M17.0 [place] [address] [address] Mar, Hypertension I10 ; Hypothyro id E03.9 ; Dysthymic disorder F34.1 ; Chronic kidney disease, stage 4 (severe) N18.4 and Nausea & vomiting R11.2 [place] [address] [address] Mar, Generalized anxiety disorder F41.1 ; Dysthymic disorder F34.1 and Insomnia G47.00 [facility] [address] [address] Mar, Dehydration E86.0 ; Chronic kidney disease, stage 4 (severe) N18.4 and Nausea & vomiting R11.2 [facility] [address] [address] Mar, Gastroenteritis K52.9 [facility] [address] [address] Mar, [facility] [address] [address] Mar, [place] [address] [address] Feb, Dysthymic disorder F34.1 and Generalized anxiety disorder F41.1 [place] [address] [address] Jan, UTI (urinary tract infection ) N39.0 ; Asthma J45.909 ; Coronary artery disease involving yocha dehe coronary artery of yocha dehe heart, angina presence unspecified I25.10 ; Hypertension I10 ; Hypothyroid E03.9 ; Vitamin D deficiency E55.9 ; Insomnia G47.00 ; Palpitations R00.2 ; Depressed F32.9 ; Restless leg G25.81 and Anxiety F41.9 [place] [address] [address] Jan, Dysthymic disorder F34.1 and Generalized anxiety disorder F41.1 [place] [address] [address] Jan, [place] [address] [address] Dec, [place] [address] [address] Dec, Alkalosis 276.3 ; Chronic ki dney disease, Stage IV (severe) 585.4 ; Hyperpotassemia 276.7 ; Secondary hyperparathyroidism, renal 588.81 ; Proteinuria 791.0 ; Unspecified vitamin D deficiency 268.9 ; Anemia in chronic kidney disease 285.21 ; Other and unspecified hyperlipidemia 272.4 ; Hypertension, essential, benign 401.1 and Chronic kidney disease (CKD), stage III (moderate) 585.3 [place] [address] [address] Dec, [place] [address] [address] Dec, Depressive disorder, not els ewhere classified 311 and Generalized anxiety disorder 300.02 [facility] [address] [facility] [place] [id number] [address] [place] [address] Dec, [facility] [address] [facility] [place] [id number] [address] [place] [address] Dec, [facility] [address] [place] [id number] [address] [place] [address] Nov, Depressive disorder, not els ewhere classified 311 and Generalized anxiety disorder 300.02 [facility] [address] [place] [id number] [address] [place] [address] Nov, Arthritis of both knees 716. 96 [facility] [address] [place] [id number] [place] [address] Nov, PAF (paroxysmal atrial fibri llation) 427.31 ; CAD (coronary artery disease) 414.00 ; Chest pain 786.50 and Chronic kidney disease (CKD) stage G4/A1, severely decreased glomerular filtration rate (GFR) between 15-29 mL/min/1.73 square meter and albuminuria creatinine ratio less than 30 mg/g 585.4 [facility] [address] [place] [id number] [place] [address] Oct, Coronary atherosclerosis of unspecified type of vessel, yocha dehe or graft 414.00 ; Chronic kidney disease, Stage IV (severe) 585.4 ; Hypertension 401.9 and Edema 782.3 [facility] [address] [place] [id number] [address] [place] [address] Oct, Depressive disorder, not els ewhere classified 311 and Generalized anxiety disorder 300.02 [facility] [address] [facility] [place] [id number] [address] [place] [address] Oct, Depressive disorder, not els ewhere classified 311 and Generalized anxiety disorder 300.02 [facility] [address] [facility] [place] [id number] [address] [place] [address] Oct, [facility] [address] [place] [id number] [address] [place] [address] Oct, [place] [address] [address] Sep, [place] [address] [address] Sep, Chronic kidney disease, Stag e IV (severe) 585.[address] [address] Sep, [place] [address] [address] Sep, Coronary atherosclerosis of unspecified type of vessel, yocha dehe or graft 414.00 ; Hypertension 401.9 ; Edema 782.3 and Hypothyroidism 244.[address] [address] Sep, Coronary atherosclerosis of unspecified type of vessel, yocha dehe or graft 414.00 ; Hypertension 401.9 ; Fibromyalgia 729.1 ; Edema 782.3 ; Hypothyroidism 244.9 and Anemia 285.[address] [address] Sep, Anxiety disorder, unspecifie d 300.00 and Depressive disorder, not elsewhere classified [address] [address] Sep, [address] [address] August, Generalized anxiety disorder 300.[address] [address] August, Closed fracture of lateral m alleolus 824.[address] [address] Jul, [place] [address] [address] Jul, [address] [address] Jun, [facility] [address] [id number] [address] [place] [address], [place] [address] Jun, [facility] [address] [id number] [address] [place] [address], [place] [address] Jun, [facility] [address] [id number] [address] [place] [address], [place] [address] Jun, [facility] [address] [id number] [address] [place] [address], [place] [address] Jun, [facility] [address] [id number] [address] [place] [address], [place] [address] Jun, [facility] [address] [id number] [address] [place] [address], [place] [id number] May, 2014 [facility] [address] [id number] [address] [place] [address], [place] [address] 19 May, 2014 [facility] [address] [id number] [address] [place] [address], [place] [address] 18 May, 2014 [facility] [address] [id number] [address] [place] [address], [place] [address] 18 May, 2014 [facility] [address] [id number] [address] [place] [address], [place] [address] 16 May, 2014 [facility] [address] [id number] [address] [place] [address], [place] [address] 16 May, 2014 [facility] [address] [id number] [address] [place] [address], [place] [address] 13 May, 2014 [facility] [address] [id number] [address] [place] [address], [place] [address] 13 May, 2014 [facility] [address] [id number] [address] [place] [address], [place] [address] 10 May, 2014 [facility] [address] [id number] [address] [place] [address], [place] [address] 10 May, 2014 [facility] [address] [id number] [address] [place] [address], [place] [address] Apr, [facility] [address] [id number] [address] [place] [address], [place] [address] Apr, [facility] [address] [id number] [address] [place] [address], [place] [address] Mar, [facility] [address] [id number] [address] [place] [address], [place] [address] Mar, [facility] [address] [id number] [address] [place] [address], [place] [address] Mar, [facility] [address] [id number] [address] [place] [address], [place] [address] Mar, [facility] [address] [id number] [address] [place] [address], [place] [address] Mar, [facility] [address] [id number] [address] [place] [address], [place] [address] Mar, [facility] [address] [id number] [address] [place] [address], [place] [address] Mar, [facility] [address] [id number] [address] [place] [address], [place] [address] Feb, [facility] [address] [id number] [address] [place] [address], [place] [address] Feb, [facility] [address] [id number] [address] [place] [address], [place] [address] Feb, [facility] [address] [id number] [address] [place] [address], [place] [address] Jan, [facility] [address] [id number] [address] [place] [address], [place] [address] Jan, [facility] [address] [id number] [address] [place] [address], [place] [address] Jan, [facility] [address] [id number] [address] [place] [address], [place] [address] Jan, [facility] [address] [id number] [address] [place] [address], [place] [address] Jan, [facility] [address] [id number] [address] [place] [address], [place] [address] Jan, [facility] [address] [id number] [address] [place] [address], [place] [address] Jan, [facility] [address] [id number] [address] [place] [address], [place] [address] Jan, [facility] [address] [id number] [address] [place] [address], [place] [address] Jan, [facility] [address] [id number] [address] [place] [address], [place] [address] Jan, [facility] [address] [id number] [address] [place] [address], [place] [address] Nov, [facility] [address] [id number] [address] [place] [address], [place] [address] Nov, [facility] [address] [id number] [address] [place] [address], [place] [address] Nov, [facility] [address] [id number] [address] [place] [address], [place] [address] Oct, [facility] [address] [id number] [address] [place] [address], [place] [address] Oct, [facility] [address] [id number] [address] [place] [address], [place] [address] Oct, [facility] [address] [id number] [address] [place] [address], [place] [address] Oct, [facility] [address] [id number] [address] [place] [address], [place] [address] Oct, [facility] [address] [id number] [address] [place] [address], [place] [address] Oct, [facility] [address] [id number] [address] [place] [address], [place] [address] Oct, [facility] [address] [id number] [address] [place] [address], [place] [address] Oct, [facility] [address] [id number] [address] [place] [address], [place] [address] Oct, [facility] [address] [id number] [address] [place] [address], [place] [address] Sep, [facility] [address] [id number] [address] [place] [address], [place] [address] Sep, [facility] [address] [id number] [address] [place] [address], [place] [address] Sep, [facility] [address] [id number] [address] [place] [address], [place] [address] Sep, [facility] [address] [id number] [address] [place] [address], [place] [address] Sep, [facility] [address] [id number] [address] [place] [address], [place] [address] Sep, [facility] [address] [id number] [address] [place] [address], [place] [address] Sep, [facility] [address] [id number] [address] [place] [address], [place] [address] Sep, [facility] [address] [id number] [address] [place] [address], [place] [address] Sep, [facility] [address] [id number] [address] [place] [address], [place] [address] August, [facility] [address] [id number] [address] [place] [address], [place] [address] August, [facility] [address] [id number] [address] [place] [address], [place] [address] August, [facility] [address] [id number] [address] [place] [address], [place] [address] August, [facility] [address] [id number] [address] [place] [address], [place] [address] August, [facility] [address] [id number] [address] [place] [address], [place] [address] August, [facility] [address] [id number] [address] [place] [address], [place] [address] Jul, [facility] [address] [id number] [address] [place] [address], [place] [address] Jul, [facility] [address] [id number] [address] [place] [address], [place] [address] Jul, [facility] [address] [id number] [address] [place] [address], [place] [address] Jul, [facility] [address] [id number] [address] [place] [address], [place] [address] Jul, [facility] [address] [id number] [address] [place] [address], [place] [address] Jul, [facility] [address] [id number] [address] [place] [address], [place] [address] Jun, [facility] [address] [id number] [address] [place] [address], [place] [address] Jun, [facility] [address] [id number] [address] [place] [address], [place] [address] May, [facility] [address] [id number] [address] [place] [address], [place] [address] May, [facility] [address] [id number] [address] [place] [address], [place] [address] May, [facility] [address] [id number] [address] [place] [address], [place] [address] May, [facility] [address] [id number] [address] [place] [address], [place] [address] Apr, [facility] [address] [id number] [address] [place] [address], [place] [address] Apr, [facility] [address] [id number] [address] [place] [address], [place] [address] 18 Mar, 2013 [facility] [address] [id number] [address] [place] [address], [place] [address] 18 Mar, 2013 [facility] [address] [id number] [address] [place] [address], [place] [address] 17 Mar, 2013 [facility] [address] [id number] [address] [place] [address], [place] [address] 17 Mar, 2013 [facility] [address] [id number] [address] [place] [address], [place] [address] Mar, [facility] [address] [id number] [address] [place] [address], [place] [address] Mar, [facility] [address] [id number] [address] [place] [address], [place] [address] Feb, [facility] [address] [id number] [address] [place] [address], [place] [address] Feb, [facility] [address] [id number] [address] [place] [address], [place] [address] 14 Feb, 2013 [facility] [address] [id number] [address] [place] [address], [place] [address] 14 Feb, 2013 [facility] [address] [id number] [address] [place] [address], [place] [address] 05 Feb, 2013 [facility] [address] [id number] [address] [place] [address], [place] [address] Feb, [facility] [address] [id number] [address] [place] [address], [place] [address] 24 Jan, 2013 [facility] [address] [id number] [address] [place] [address], [place] [address] 24 Jan, 2013 [facility] [address] [id number] [address] [place] [address] Jan, [facility] [address] [id number] [address] [place] [address], [place] [address] Jan, [facility] [address] [id number] [address] [place] [address], [place] [address] Jan, [facility] [address] [id number] [address] [place] [address], [place] [address] Jan, [facility] [address] [id number] [address] [place] [address], [place] [address] Dec, [facility] [address] [id number] [address] [place] [address], [place] [address] Dec, [facility] [address] [id number] [address] [place] [address], [place] [address] Nov, [facility] [address] [id number] [address] [place] [address], [place] [address] Nov, [facility] [address] [id number] [address] [place] [address], [place] [address] Oct, [facility] [address] [id number] [address] [place] [address], [place] [address] Oct, [facility] [address] [id number] [address] [place] [address], [place] [address] Oct, [facility] [address] [id number] [address] [place] [address], [place] [address] Oct, [facility] [address] [id number] [address] [place] [address], [place] [address] Oct, [facility] [address] [id number] [address] [place] [address], [place] [address] Oct, [facility] [address] [id number] [address] [place] [address], [place] [address] Sep, [facility] [address] [id number] [address] [place] [address], [place] [address] Sep, [facility] [address] [id number] [address] [place] [address], [place] [address] Sep, [facility] [address] [id number] [address] [place] [address], [place] [address] Sep, [facility] [address] [id number] [address] [place] [address], [place] [address] August, [facility] [address] [id number] [address] [place] [address], [place] [address] August, [facility] [address] [id number] [address] [place] [address], [place] [address] August, [facility] [address] [id number] [address] [place] [address], [place] [address] August, [facility] [address] [id number] [address] [place] [address], [place] [address] August, [facility] [address] [id number] [address] [place] [address], [place] [address] Jul, [facility] [address] [id number] [address] [place] [address], [place] [address] Jul, [facility] [address] [id number] [address] [place] [address], [place] [address] Jul, [facility] [address] [id number] [address] [place] [address], [place] [address] Jul, [facility] [address] [id number] [address] [place] [address], [place] [address] Jul, [facility] [address] [id number] [address] [place] [address], [place] [address] Jul, [facility] [address] [id number] [address] [place] [address], [place] [address] Jul, [facility] [address] [id number] [address] [place] [address], [place] [address] Jul, [facility] [address] [id number] [address] [place] [address], [place] [address] Jul, [facility] [address] [id number] [address] [place] [address], [place] [address] Jul, [facility] [address] [id number] [place] [id number] Jun, [facility] [address] [id number] [address] [place] [address], [place] [address] Jun, [facility] [address] [id number] [address] [place] [address], [place] [address] Jun, [facility] [address] [id number] [address] [place] [address], [place] [address] Jun, [facility] [address] [id number] [address] [place] [address], [place] [address] Jun, [facility] [address] [id number] [address] [place] [address], [place] [address] May, [facility] [address] [id number] [address] [place] [address], [place] [address] May, [facility] [address] [id number] [address] [place] [address], [place] [address] May, [facility] [address] [id number] [address] [place] [address], [place] [address] Apr, [facility] [address] [id number] [address] [place] [address], [place] [address] Apr, [facility] [address] [id number] [address] [place] [address], [place] [address] Apr, [facility] [address] [id number] [address] [place] [address], [place] [address] Apr, [facility] [address] [id number] [address] [place] [address], [place] [address] Apr, [facility] [address] [id number] [address] [place] [address], [place] [address] Apr, [facility] [address] [id number] [address] [place] [address], [place] [address] Mar, [facility] [address] [id number] [address] [place] [address], [place] [address] Mar, [facility] [address] [id number] [address] [place] [address], [place] [address] Mar, [facility] [address] [id number] [address] [place] [address], [place] [address] Mar, [facility] [address] [id number] [address] [place] [address], [place] [address] Feb, [facility] [address] [id number] [address] [place] [address], [place] [address] Feb, [facility] [address] [id number] [address] [place] [address], [place] [address] Feb, [facility] [address] [id number] [address] [place] [address], [place] [address] Feb, [facility] [address] [id number] [address] [place] [address], [place] [address] Feb, [facility] [address] [id number] [address] [place] [address], [place] [address] Feb, [facility] [address] [id number] [address] [place] [address], [place] [address] Feb, [facility] [address] [id number] [address] [place] [address], [place] [address] Feb, [facility] [address] [id number] [address] [place] [address], [place] [address] Feb, [facility] [address] [id number] [address] [place] [address], [place] [address] Feb, [facility] [address] [id number] [address] [place] [address], [place] [address] Feb, [facility] [address] [id number] [address] [place] [address], [place] [address] Feb, [facility] [address] [id number] [address] [place] [address] Feb, [facility] [address] [id number] [address] [place] [address], [place] [address] Feb, [facility] [address] [id number] [address] [place] [address] Feb, [facility] [address] [id number] [address] [place] [address] Feb, [facility] [address] [id number] [address] [place] [address] Jan, [facility] [address] [id number] [address] [place] [address], [place] [address] Jan, [facility] [address] [id number] [address] [place] [address] Jan, [facility] [address] [id number] [address] [place] [address] Jan, [facility] [address] [id number] [address] [place] [address] Jan, [facility] [address] [id number] [address] [place] [address] Jan, [facility] [address] [id number] [address] [place] [address] Jan, [facility] [address] [id number] [address] [place] [address] 16 Jan, 2012 [facility] [address] [id number] [address] [place] [address] 16 Jan, 2012 [facility] [address] [id number] [address] [place] [id number] Jan, [facility] [address] [id number] [address] [place] [address] Jan, [facility] [address] [id number] [address] [place] [address] Jan, [facility] [address] [id number] [facility] [address] 26 Sep, 2011 [facility] [address] [id number] [address] [place] [address], [place] [address] 26 Sep, 2011 [facility] [address] [id number] [address] [place] [address], [place] [address] 24 Sep, 2011 [facility] [address] [id number] [address] [place] [address], [place] [address] 23 Sep, 2011 [facility] [address] [id number] [address] [place] [address], [place] [address] 22 Sep, 2011 [facility] [address] [id number] [address] [place] [address], [place] [address] 21 Sep, 2011 [facility] [address] [id number] [address] [place] [address], [place] [address] 20 Sep, 2011 [facility] [address] [id number] [address] [place] [address], [place] [address] 20 Sep, 2011 [facility] [address] [id number] [address] [place] [address], [place] [address] 07 Sep, 2011 [facility] [address] [id number] [address] [place] [address], [place] [address] 06 Sep, 2011 [facility] [address] [id number] [address] [place] [address], [place] [address] 06 Sep, 2011 [facility] [address] [id number] [address] [place] [address], [place] [address] 05 Sep, 2011 [facility] [address] [id number] [address] [place] [address], [place] [address] 23 Nov, 2011 [facility] [address] [id number] [address] [place] [address], [place] [address] 17 Nov, 2011 [facility] [address] [id number] [address] [place] [address], [place] [address] 13 Nov, 2011 [facility] [address] [id number] [address] [place] [address], [place] [address] Nov, [facility] [address] [id number] [address] [place] [address], [place] [address] Nov, [facility] [address] [id number] [address] [place] [address], [place] [address] Nov, [facility] [address] [id number] [address] [place] [address], [place] [address] Nov, [facility] [address] [id number] [address] [place] [address], [place] [address] Nov, [facility] [address] [id number] [address] [place] [address], [place] [address] Oct, [facility] [address] [id number] [address] [place] [address], [place] [address] Oct, [facility] [address] [id number] [address] [place] [address], [place] [address] Oct, [facility] [address] [id number] [address] [place] [address], [place] [address] Oct, [facility] [address] [id number] [address] [place] [address], [place] [address] Oct, [facility] [address] [id number] [address] [place] [address], [place] [address] Oct, [facility] [address] [id number] [address] [place] [address], [place] [address] Oct, [facility] [address] [id number] [address] [place] [address], [place] [address] Sep, [facility] [address] [id number] [address] [place] [address], [place] [address] Sep, [facility] [address] [id number] [address] [place] [address], [place] [address] August, [facility] [address] [id number] [address] [place] [address], [place] [address] August, [facility] [address] [id number] [address] [place] [address], [place] [address] August, [facility] [address] [id number] [address] [place] [address], [place] [address] August, [facility] [address] [id number] [address] [place] [address], [place] [address] Jul, [facility] [address] [id number] [address] [place] [address], [place] [address] Jul, [facility] [address] [id number] [address] [place] [address], [place] [address] Jul, [facility] [address] [id number] [address] [place] [address], [place] [address] Jul, [facility] [address] [id number] [address] [place] [address], [place] [address] Jul, [facility] [address] [id number] [address] [place] [address], [place] [address] Jul, [facility] [address] [id number] [address] [place] [address], [place] [address] Jul, [facility] [address] [id number] [address] [place] [address], [place] [address] Jul, [facility] [address] [id number] [address] [place] [address], [place] [address] Jul, [facility] [address] [id number] [address] [place] [address], [place] [address] 23 Jun, 2011 [facility] [address] [id number] [address] [place] [address], [place] [address] 19 Jun, 2011 [facility] [address] [id number] [address] [place] [address], [place] [address] 15 Jun, 2011 [facility] [address] [id number] [address] [place] [address], [place] [address] 14 Jun, 2011 [facility] [address] [id number] [address] [place] [address], [place] [address] 12 Jun, 2011 [facility] [address] [id number] [address] [place] [address], [place] [address] Jun, [facility] [address] [id number] [address] [place] [address], [place] [address] Jun, [facility] [address] [id number] [address] [place] [address], [place] [address] May, [facility] [address] [id number] [address] [place] [address], [place] [address] May, [facility] [address] [id number] [address] [place] [address], [place] [address] May, [facility] [address] [id number] [address] [place] [address], [place] [address] May, [facility] [address] [id number] [address] [place] [address], [place] [address] May, [facility] [address] [id number] [address] [place] [address], [place] [address] Apr, [facility] [address] [id number] [address] [place] [address], [place] [address] Apr, [facility] [address] [id number] [address] [place] [address], [place] [address] Apr, [facility] [address] [id number] [address] [place] [address], [place] [address] Apr, [facility] [address] [id number] [address] [place] [address], [place] [address] Apr, [facility] [address] [id number] [address] [place] [address], [place] [address] Mar, [facility] [address] [id number] [address] [place] [address], [place] [address] Mar[facility] [facility] [address] [id number] [address] [place] [address], [place] [address] Mar, [facility] [address] [id number] [address] [place] [id number] Mar, [facility] [address] [id number] [address] [place] [address], [place] [address] Mar, [facility] [address] [id number] [address] [place] [id number] Mar, [facility] [address] [id number] [address] [place] [address], [place] [address] Mar, [facility] [address] [id number] [address] [place] [phone] Feb, [facility] [address] [id number] [address] [place] [address], [place] [address] Feb, [facility] [address] [id number] [address] [place] [address], [place] [address] Feb, [facility] [address] [id number] [address] [place] [address], [place] [address] Feb, [facility] [address] [id number] [address] [place] [address], [place] [address] Jan, [facility] [address] [id number] [address] [place] [phone] Jan, [facility] [address] [id number] [address] [place] [address], [place] [address] Jan, [facility] [address] [id number] [address] [place] [id number] Jan, [facility] [address] [id number] [address] [place] [phone] Nov, [facility] [address] [id number] [address] [place] [address], [place] [address] Mar, [facility] [address] [id number] [address] [place] [address], [place] [address] Mar, [facility] [address] [id number] [address] [place] [address], [place] [address] Mar, [facility] [address] [id number] [address] [place] [id number] Mar, [facility] [address] [facility] [place] [id number] [address] [place] [phone] Mar, [facility] [address] [facility] [place] [id number] [address] [place] [id number] Mar, [facility] [address] [facility] [place] [id number] [address] [place] [phone] Feb, [facility] [address] [facility] [place] [id number] [address] [place] [phone] Feb, [facility] [address] [facility] [place] [id number] [address] [place] [phone] Jan, [facility] [address] [facility] [place] [id number] [address] [place] [phone] Jan, [facility] [address] [place] [id number] [address] [place] [id number] Jan, IMMUNIZATIONS No Known Immunizations SOCIAL HISTORY [...] History CPAP Noncompliance_ Dr. Madden advises a Proenza Schouer driving. Medical History Bacterial meningitis 12/2016 Medical [...] [place] 03/2016 Surgical History Neurotransmitter placed 10/2017 Surgical History retninal repair 12/31/2017 Surgical History cataract surgery 2018 Surgical History cataract surgery 2018 Surgical History SCS trial x7 days 2018 Surgical History SCS implant removed. 2018 Hospitalization History Surgeries Only Hospitalization History bacterial meningitis December 2016 Hospitalization History [facility] psych for SI 1988 Hospitalization History [facility]-Altered mental status 05/2017 Hospitalization History sepsis, UTI, headache 08/03/2018-
--- OUTSIDE RECORDS SUMMARY | 2019-08-01 10:13 | XMS REPORT ---
Author Author Lola Tyson Doctor Organization [facility] Address Unknown Phone Unavailable Care Team Providers Care Structures Engineer Name Role Phone Migration, Doctor Unavailable Unavailable PROBLEMS Type Condition ICD9-CM Code CUA39-VA Code Onset Dates Condition S tatus SNOMED Code Problem Hypothyroid E03.9 Active 01195870 Problem Asthma J45.909 Active 418012631 Problem Insomnia G47.00 Active 653310371 Problem Depressed F32.9 Active 12312787 Problem Palpitations R00.2 Active 7130341 2 Problem Functional diarrhea K59.1 Active 58709795 Problem Chronic kidney disease, stage 4 (severe) N18.4 Active 994199779 Problem Degenerative tear of medial meniscus of left knee M23.204 Active 246673254 Problem Dysthymic disorder F34.1 Active 7 2991887 Problem Primary osteoarthritis of left knee M17.12 Active 091469731 Problem Generalized anxiety disorder F41.1 A ctive 99950824 Problem Restless leg G25.81 Active 2144297 8 Problem Coronary artery disease invo lving pauma coronary artery of pauma heart, angina presence unspecified I25.10 Active 8834206405505 Problem Hypokalemia E87.6 Active 43407652 Problem Other seasonal allergic rhinitis J30.2 Active 267054155 Problem Mixed stress and urge urinary incontinence N39.46 Active 961990030 Problem Fibromyalgia M79.7 Active 5099660 05 Problem Essential (primary) hypertension I10 Active 73842773 Problem Long-term use of high-risk medication Z79.899 Active 015783203 Problem Vitamin D deficiency E55.9 Active 91024522 Problem Anemia in chronic kidney disease D63.1 Active 846795277369395 Problem Low back pain M54.5 Active 537787 009 Problem Chronic kidney disease, unspecified N18.9 Active 680472345 Problem Abnormal chest CT R93.8 Active 44 3339469 Problem Mood disorder F39 Active 982618 05 Problem Stage 3 chronic kidney disease N18.3 Active 313951100 Problem Body mass index (BMI) of 40.0-44.9 in adult Z68.41 Active 398388493 Problem Other chronic pain G89.29 Active 8 9736921 Problem Asthma with acute exacerbation in adult J45.901 Active 704115559 Problem Major depressive disorder, recurrent, moderate F33 .1 Active 044979791 Problem History of colon polyps Z86.010 Active 303896324 Problem History of anemia Z86.2 Active 27 9655362 Problem Seasonal allergic rhinitis due to pollen J30.1 Active 75279076 Problem Restless leg syndrome G25.81 Active 76012640 Problem Chronic pain syndrome G89.4 Active 513728739 Problem Perimenopausal vasomotor symptoms N95.1 Active 653865057 ALLERGIES No Information ENCOUNTERS Encounter Location Date Diagnosis [facility] [address] [facility] [id number] [address] [place] [phone] Dec, [facility] [address] [facility] [id number] [address] [place] [phone] Nov, [facility] [address] [facility] [id number] [address] [place] [phone] Nov, [facility] [address] [facility] [id number] [address] [place] [phone] Nov, [facility] [address] [facility] [id number] [address] [place] [phone] Nov, [facility] [address] [facility] [id number] [address] [place] [phone] Oct, Major depressive disorder, r ecurrent, moderate F33.1 ; Generalized anxiety disorder F41.1 and Dysthymic disorder F34.1 [facility] [address] [facility] [id number] [address] [place] [phone] Oct, [facility] [address] [facility] [id number] [address] [place] [phone] Oct, Cellulitis of left lower ext remity L03.116 and Morbid obesity E66.01 [facility] [address] [facility] [id number] [address] [place] [phone] Oct, [facility] [address] [facility] [id number] [address] [place] [phone] Oct, [facility] [address] [id number] [address] [place] [phone] Oct, Generalized anxiety disorder F41.1 and Major depressive disorder, recurrent episode with anxious distress F33.9 [facility] [address] [id number] [address] [place] [phone] Oct, [facility] [address] [facility] [id number] [address] [place] [phone] Oct, Chronic pain syndrome G89.4 [place] [address] [facility] [id number] [address] [place] [phone] Oct, Chronic pain syndrome G89.4 [facility] [address] [facility] [id number] [address] [place] [phone] Oct, UTI symptoms R39.9 ; Acute c ystitis without hematuria N30.00 and Morbid obesity E66.01 [facility] [address] [facility] [id number] [address] [place] [phone] Oct, [facility] [address] [facility] [id number] [address] [place] [phone] Oct, Chronic pain syndrome G89.4 [facility] [address] [facility] [id number] [address] [place] [phone] Sep, [facility] [address] [facility] [id number] [address] [place] [phone] Sep, Generalized anxiety disorder F41.1 and Major depressive disorder, recurrent episode with anxious distress F33.9 [facility] [address] [facility] [id number] [address] [place] [phone] 17 Sep, 2018 Chronic kidney disease, stag e 4 (severe) N18.4 [facility] [address] [facility] [id number] [address] [place] [phone] 2018 Fibromyalgia M79.7 and Chron ic pain syndrome G89.4 [facility] [address] [id number] [address] [place] [phone] [address] [phone] Sep, Chronic pain syndrome G89.4 [facility] [address] [id number] [address] [place] [phone] Sep, [facility] [address] [id number] [address] [place] [phone] 05 Sep, 2018 Chronic pain syndrome G89.4 ; Fibromyalgia M79.7 and Morbid obesity E66.01 [facility] [address] [id number] [address] [place] [phone] August, Generalized anxiety disorder F41.1 and Major depressive disorder, recurrent episode with anxious distress F33.9 [facility] [address] [id number] [address] [place] [phone] August, Fibromyalgia M79.7 [facility] [address] [id number] [address] [place] [phone] August, Restless leg syndrome G25.81 ; Vitamin D deficiency E55.9 ; Urinary tract infection without hematuria, site unspecified N39.0 ; Pain in right shoulder M25.511 ; Other chronic pain G89.29 ; Biceps tendinitis on right M75.21 and Morbid obesity E66.01 [facility] [address] [id number] [address] [place] [phone] Jul, Urinary tract infection with out hematuria, site unspecified N39.0 and Morbid obesity E66.01 [facility] [address] [id number] [address] [place] [phone] Jul, [facility] [address] [id number] [address] [place] [phone] Jul, [facility] [address] [id number] [address] [place] [phone] Jul, Fibromyalgia M79.7 [facility] [address] [id number] [address] [place] [phone] Jul, Acute pain of right shoulder M25.511 [facility] [address] [facility] [id number] [address] [place] [phone] Jul, Acute pain of right shoulder M25.511 and Morbid obesity E66.01 [facility] [address] [place] [id number] [address] [place] [phone] Jun, [facility] [address] [phone] Jun, Generalized anxiety disorder F41.1 and Major depressive disorder, recurrent episode with anxious distress F33.9 [place] [address] [place] [id number] [place] [phone] Jun, [facility] [address] [place] [id number] [place] [phone] Jun, Fibromyalgia M79.7 [facility] [address] [place] [id number] [address] [place] [address] Jun, Acute pain of right shoulder M25.511 ; Acute pain of right hip M25.551 and Morbid obesity E66.01 [place] [address] [place] [id number] [address] [place] [address] May, Burning with urination R30.0 ; Vaginal discharge N89.8 ; Chronic kidney disease, stage 4 (severe) N18.4 ; Body mass index (BMI) of 40.0-44.9 in adult Z68.41 and Morbid obesity E66.01 [facility] [address] [place] [id number] [address] [place] [phone] May, Fibromyalgia M79.7 [facility] [address] [place] [id number] [address] [place] [phone] May, Generalized anxiety disorder F41.1 and Major depressive disorder, recurrent episode with anxious distress F33.9 [facility] [address] [place] [id number] [address] [place] [phone] Apr, [facility] [address] [id number] [address] [place] [phone] Apr, Fibromyalgia M79.7 [facility] [address] [id number] [address] [place] [phone] Mar, Acute UTI N39.0 and Dysuria R30.0 [facility] [address] [id number] [address] [place] [phone] Mar, Fibromyalgia M79.7 [facility] [address] [id number] [address] [place] [phone] 15 Feb, 2018 [facility] [address] [id number] [address] [place] [phone] Feb, [facility] [address] [id number] [address] [place] [phone] Feb, [facility] [address] [id number] [address] [place] [phone] Feb, Fibromyalgia M79.7 [facility] [address] [id number] [address] [place] [phone] 08 Feb, 2018 Complicated UTI (urinary tra ct infection) N39.0 [facility] [address] [id number] [address] [place] [id number] Feb, [facility] [address] [id number] [address] [place] [phone] Jan, Generalized anxiety disorder F41.1 and Major depressive disorder, recurrent episode with anxious distress F33.9 [facility] [address] [id number] [address] [place] [phone] Jan, Acute conjunctivitis of left eye, unspecified acute conjunctivitis type H10.32 [facility] [address] [id number] [address] [place] [phone] Jan, [facility] [address] [id number] [address] [place] [phone] Jan, Acute non-recurrent maxillar y sinusitis J01.00 ; Dysuria R30.0 ; Perimenopausal vasomotor symptoms N95.1 and Fibromyalgia M79.7 [facility] [address] [id number] [address] [place] [phone] 28 Dec, 2017 Vitamin D deficiency E55.9 [facility] [address] [id number] [address] [place] [phone] Dec, Vitamin D deficiency E55.9 [facility] [address] [id number] [address] [place] [phone] 24 Dec, 2017 Vitamin D deficiency E55.9 [facility] [address] [id number] [address] [place] [phone] Dec, [facility] [address] [id number] [address] [place] [phone] Dec, Fibromyalgia M79.7 [facility] [address] [facility] [id number] [address] [place] [phone] Nov, [facility] [address] [id number] [address] [place] [phone] Nov, [facility] [address] [facility] [id number] [address] [place] [phone] Nov, [facility] [address] [facility] [id number] [address] [place] [phone] Nov, Fibromyalgia M79.7 ; Vision changes H53.9 ; Chest wall pain R07.89 and Chronic pain syndrome G89.4 [facility] [address] [id number] [address] [place] [phone] Nov, [facility] [address] [facility] [id number] [address] [place] [phone] Nov, Rash of hands R21 [facility] [address] [id number] [address] [place] [phone] 15 Nov, 2017 Generalized anxiety disorder F41.1 and Major depressive disorder, recurrent episode with anxious distress F33.9 [place] [address] [facility] [id number] [address] [place] [phone] Nov, Fibromyalgia M79.7 [facility] [address] [facility] [id number] [address] [place] [phone] Nov, Complicated UTI (urinary tra ct infection) N39.0 [facility] [address] [facility] [id number] [address] [place] [phone] Oct, [facility] [address] [facility] [id number] [address] [place] [phone] Oct, Generalized anxiety disorder F41.1 and Major depressive disorder, recurrent episode with anxious distress F33.9 [facility] [address] [facility] [id number] [address] [place] [phone] Oct, [facility] [address] [place] [id number] [address] [place] [phone] Oct, Fibromyalgia M79.7 [facility] [address] [place] [id number] [address] [place] [phone] Sep, Restless leg syndrome G25.81 and Restless leg G25.81 [facility] [address] [place] [id number] [address] [place] [phone] Sep, [facility] [address] [place] [id number] [address] [place] [phone] Sep, Seasonal allergic rhinitis d ue to pollen J30.1 ; Screening for breast cancer Z12.31 ; Chest pain at rest R07.9 ; Restless leg syndrome G25.81 ; Essential (primary) hypertension I10 and Depressed F32.9 [facility] [address] [facility] [id number] [address] [place] [phone] August, Fibromyalgia M79.7 [facility] [address] [facility] [id number] [address] [place] [phone] August, [facility] [address] [facility] [id number] [address] [place] [phone] August, [place] [address] [facility] [id number] [address] [place] [phone] August, Abnormal chest CT R93.8 [facility] [address] [facility] [id number] [address] [place] [phone] August, Generalized anxiety disorder F41.1 and Major depressive disorder, recurrent episode with anxious distress F33.9 [place] [address] [place] [id number] [address] [place] [phone] August, Abnormal chest [address] R93.8 [place] [address] [facility] [id number] [address] [place] [phone] Jul, [place] [address] [place] [id number] [address] [place] [phone] Jul, Chronic kidney disease, stag e 4 (severe) N18.4 [place] [address] [place] [id number] [address] [place] [phone] Jul, [place] [address] [place] [id number] [address] [place] [address] Jul, Restless leg G25.81 ; Mixed stress and urge urinary incontinence N39.46 and Fibromyalgia M79.7 [place] [address] [place] [id number] [address] [place] [phone] Jul, Chronic kidney disease, stag e 4 (severe) N18.4 [place] [address] [place] [id number] [address] [place] [phone] Jun, Orthostatic hypotension I95. 1 ; Chronic kidney disease, stage 4 (severe) N18.4 ; Chest wall discomfort R07.89 and Body mass index (BMI) of 40.0- 44.9 in adult Z68.41 [place] [address] [place] [id number] [address] [place] [phone] Jun, [place] [address] [place] [id number] [address] [place] [phone] Jun, Orthostatic hypotension I95. 1 [place] [address] [facility] [id number] [address] [place] [phone] Jun, [facility] [address] [facility] [id number] [address] [place] [phone] Jun, Orthostatic hypotension I95. 1 ; Dysuria R30.0 and Acute cystitis without hematuria N30.00 [facility] [address] [facility] [id number] [address] [place] [phone] Jun, [facility] [address] [facility] [id number] [address] [place] [phone] Jun, Chronic kidney disease, stag e 4 (severe) N18.4 [facility] [address] [facility] [id number] [address] [place] [phone] Jun, Fibromyalgia M79.7 [facility] [address] [facility] [id number] [address] [place] [phone] Jun, [facility] [address] [facility] [id number] [address] [place] [phone] Jun, [facility] [address] [facility] [id number] [address] [place] [phone] May, Abnormal chest CT R93.8 and Stage 3 chronic kidney disease N18.3 [facility] [address] [facility] [id number] [address] [place] [phone] May, Chronic kidney disease, stag e 4 (severe) N18.4 [facility] [address] [facility] [id number] [address] [place] [phone] May, Chronic kidney disease, stag e 4 (severe) N18.4 [facility] [address] [facility] [id number] [address] [place] [phone] May, Abnormal chest [address] R93.8 [facility] [address] [facility] [id number] [address] [place] [phone] May, [facility] [address] [id number] [address] [place] [phone] May, [facility] [address] [id number] [address] [place] [phone] May, Generalized anxiety disorder F41.1 and Major depressive disorder, recurrent episode with anxious distress F33.9 [facility] [address] [id number] [address] [place] [phone] May, Mood disorder F39 [facility] [address] [id number] [address] [place] [phone] Apr, [facility] [address] [id number] [address] [place] [phone] Apr, Infected skin lesion L08.9 a nd Muscle strain of right shoulder region, initial encounter S46.911A [facility] [address] [facility] [id number] [address] [place] [phone] Apr, Generalized anxiety disorder F41.1 and Major depressive disorder, recurrent episode with anxious distress F33.9 [facility] [address] [id number] [address] [place] [phone] Apr, [facility] [address] [id number] [address] [place] [address] Apr, Recent urinary tract infecti on Z87.440 and Hypothyroid E03.9 [facility] [address] [id number] [address] [place] [phone] Apr, Generalized anxiety disorder F41.1 and Major depressive disorder, recurrent episode with anxious distress F33.9 [facility] [address] [id number] [address] [place] [phone] Apr, Recent urinary tract infecti on Z87.440 [facility] [address] [id number] [address] [place] [phone] Mar, [facility] [address] [id number] [address] [place] [phone] Mar, Dysuria R30.0 ; Acute cystit is without hematuria N30.00 and BMI 40.0-44.9, adult Z68.41 [facility] [address] [id number] [address] [place] [id number] 14 Mar, 2017 [facility] [address] [id number] [address] [place] [phone] 07 Mar, 2017 [facility] [address] [id number] [address] [place] [phone] Mar, Generalized anxiety disorder F41.1 and Major depressive disorder, recurrent episode with anxious distress F33.9 [place] [address] [id number] [address] [place] [id number] Feb, Conjunctivitis, bacterial H1 0.9 [place] [address] [id number] [address] [place] [phone] Feb, [facility] [address] [id number] [address] [place] [id number] Feb, Conjunctivitis, bacterial H1 0.9 [facility] [address] [id number] [address] [place] [phone] Feb, [facility] [address] [facility] [id number] [address] [place] [id number] Feb, Dysuria R30.0 ; Acute cystit is N30.00 and BMI 40.0-44.9, adult Z68.41 [place] [address] [id number] [address] [place] [id number] 08 Feb, 2017 [place] [address] [id number] [address] [place] [phone] Feb, Generalized anxiety disorder F41.1 and Major depressive disorder, recurrent episode with anxious distress F33.9 [place] [address] [id number] [address] [place] [phone] Feb, Mood disorder F39 and BMI 40 .0-44.9, adult Z68.41 [place] [address] [id number] [address] [place] [phone] Jan, [facility] [address] [facility] [id number] [address] [place] [phone] Jan, [facility] [address] [facility] [id number] [address] [place] [phone] Jan, Hypothyroid E03.9 [facility] [address] [facility] [id number] [address] [place] [phone] Jan, [facility] [address] [facility] [id number] [address] [place] [phone] Jan, Chronic kidney disease, unsp ecified N18.9 ; Hypokalemia E87.6 ; Essential (primary) hypertension I10 ; Fibromyalgia M79.7 ; Coronary artery disease involving pauma coronary artery of pauma heart, angina presence unspecified I25.10 ; Hypothyroid E03.9 and Encounter for immunization Z23 [facility] [address] [facility] [id number] [address] [place] [phone] Jan, Hypothyroid E03.9 [facility] [address] [facility] [id number] [address] [place] [phone] Jan, [facility] [address] [facility] [id number] [address] [place] [phone] Dec, Vitamin D deficiency E55.9 [facility] [address] [facility] [id number] [address] [place] [phone] Dec, Primary osteoarthritis of le ft knee M17.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 [facility] [address] [facility] [id number] [address] [place] [id number] 19 Dec, 2016 Fibromyalgia M79.7 [facility] [address] [facility] [id number] [address] [place] [phone] 18 Dec, 2016 Mood disorder F39 [facility] [address] [facility] [id number] [address] [place] [phone] 13 Dec, 2016 [facility] [address] [place] [id number] [address] [place] [phone] 13 Dec, 2016 Generalized anxiety disorder F41.1 and Major depressive disorder, recurrent episode with anxious distress F33.9 [facility] [address] [id number] [address] [place] [phone] 11 Dec, 2016 [facility] [address] [facility] [id number] [address] [place] [phone] 08 Dec, 2016 Streptococcal meningitis G00 .2 [facility] [address] [id number] [address] [place] [phone] 07 Dec, 2016 Streptococcal meningitis G00 .2 [facility] [address] [id number] [address] [place] [phone] 07 Dec, 2016 [facility] [address] [id number] [address] [place] [phone] 06 Dec, 2016 Streptococcal meningitis G00 .2 [facility] [address] [id number] [address] [place] [phone] 06 Dec, 2016 [facility] [address] [id number] [address] [place] [phone] 06 Dec, 2016 Major depressive disorder, r ecurrent episode with anxious distress F33.9 [facility] [address] [id number] [address] [place] [phone] Nov, Fever, unspecified fever cau se R50.9 [facility] [address] [id number] [address] [place] [phone] 24 Nov, 2016 [facility] [address] [id number] [address] [place] [phone] 16 Nov, 2016 Hypothyroid E03.9 [facility] [address] [id number] [address] [place] [phone] 10 Nov, 2016 Generalized anxiety disorder F41.1 and Major depressive disorder, recurrent episode with anxious distress F33.9 [facility] [address] [facility] [id number] [address] [place] [phone] Nov, [facility] [address] [id number] [address] [place] [id number] Oct, Dental examination Z01.20 [facility] [address] [facility] [id number] [address] [place] [phone] Oct, Generalized anxiety disorder F41.1 and Major depressive disorder, recurrent episode with anxious distress F33.9 [facility] [address] [facility] [id number] [address] [place] [phone] Oct, Chronic kidney disease, stag e 4 (severe) N18.4 [facility] [address] [facility] [id number] [address] [place] [phone] Oct, [facility] [address] [facility] [id number] [address] [place] [phone] Oct, Fibromyalgia M79.7 [facility] [address] [facility] [id number] [address] [place] [phone] Oct, [facility] [address] [facility] [id number] [address] [place] [phone] Oct, Generalized anxiety disorder F41.1 ; Major depressive disorder, recurrent episode with anxious distress F33.9 and Bipolar disorder, current episode manic without psychotic features F31.10 [facility] [address] [facility] [id number] [address] [place] [phone] Sep, [facility] [address] [facility] [id number] [address] [place] [phone] Sep, [facility] [address] [facility] [id number] [address] [place] [phone] 15 Sep, 2016 Vitamin D deficiency E55.9 [facility] [address] [facility] [id number] [address] [place] [phone] 14 Sep, 2016 Vitamin D deficiency E55.9 [facility] [address] [facility] [id number] [address] [place] [phone] 07 Sep, 2016 [facility] [address] [facility] [id number] [address] [place] [phone] Sep, Chronic kidney disease, stag e 4 (severe) N18.4 ; Hypothyroid E03.9 ; Restless leg G25.81 ; Fibromyalgia M79.7 ; Essential (primary) hypertension I10 ; Vitamin D deficiency E55.9 ; Dyspepsia R10.13 ; Anemia in chronic kidney disease D63.1 ; Chronic kidney disease, unspecified N18.9 ; Coronary artery disease involving pauma coronary artery of pauma heart, angina presence unspecified I25.10 ; Screening breast examination Z12.39 and Low back pain M54.5 [place] [address] [facility] [id number] [address] [place] [phone] August, Generalized anxiety disorder F41.1 and Major depressive disorder, recurrent episode with anxious distress F33.9 [place] [address] [place] [id number] [address] [place] [phone] August, Generalized anxiety disorder F41.1 and Major depressive disorder, recurrent episode with anxious distress F33.9 [place] [address] [place] [id number] [address] [place] [phone] August, Fibromyalgia M79.7 [place] [address] [place] [id number] [address] [place] [phone] Jul, Generalized anxiety disorder F41.1 and Major depressive disorder, recurrent episode with anxious distress F33.9 [place] [address] [place] [id number] [address] [place] [phone] Jul, Fibromyalgia M79.7 [place] [address] [place] [id number] [address] [place] [id number] Jul, Generalized anxiety disorder F41.1 [place] [address] [facility] [id number] [address] [place] [phone] May, [place] [address] [place] [id number] [address] [place] [id number] 16 May, 2016 Hypothyroid E03.9 [place] [address] [place] [id number] [address] [place] [phone] May, Chronic kidney disease, stag e 4 (severe) N18.4 ; Hypothyroid E03.9 ; Restless leg G25.81 ; Fibromyalgia M79.7 ; Essential (primary) hypertension I10 ; Vitamin D deficiency E55.9 ; Dyspepsia R10.13 ; Acute non-recurrent maxillary sinusitis J01.00 ; Anemia in chronic kidney disease D63.1 ; Chronic kidney disease, unspecified N18.9 and Coronary artery disease involving pauma coronary artery of pauma heart, angina presence unspecified I25.10 [place] [address] [place] [phone] May, Vitamin D deficiency, unspec ified E55.9 [place] [address] [address] May, Generalized anxiety disorder F41.1 and Major depressive disorder, recurrent episode with anxious distress F33.9 [place] [address] [place] [id number] [address] [place] [phone] Apr, Pain in right knee M25.561 a nd Pain in left knee M25.562 [place] [address] [place] [phone] Apr, [place] [address] [address] Apr, [place] [address] [place] [phone] Apr, [place] [address] [place] [phone] Mar, Generalized anxiety disorder F41.1 and Major depressive disorder, recurrent episode with anxious distress F33.9 [place] [address] [place] [id number] [address] [place] [phone] Mar, Generalized anxiety disorder F41.1 and Major depressive disorder, recurrent episode with anxious distress F33.9 [place] [address] [place] [phone] Mar, [place] [address] [address] Mar, [place] [address] [address] Mar, [place] [address] [address] Mar, Asthma J45.909 and Fibromyal elvira M79.7 [place] [address] [address] Mar, Chronic kidney disease, stag e 4 (severe) N18.4 ; Vitamin D deficiency E55.9 and Essential (primary) hypertension I10 [place] [address] [address] Feb, [place] [address] [address] Feb, Dysuria R30.0 ; Mixed stress and urge urinary incontinence N39.46 ; Fibromyalgia M79.7 and Chronic kidney disease, stage IV (severe) N18.4 [place] [address] [address] Feb, Chronic kidney disease, stag e 4 (severe) N18.4 [place] [address] [address] Feb, Chronic kidney disease, stag e 4 (severe) N18.4 [place] [address] [address] Feb, [place] [address] [address] Feb, Vitamin D deficiency, unspec ified E55.9 [place] [address] [place] [id number] [place] [phone] Jan, [place] [address] [address] Jan, [facility] [address] [place] [id number] [address] [place] [phone] Dec, [facility] [address] [place] [id number] [place] [phone] Dec, Chronic kidney disease, stag e 4 (severe) N18.4 [facility] [address] [place] [id number] [place] [phone] Dec, Dysthymic disorder F34.1 and Generalized anxiety disorder F41.1 [facility] [address] [place] [id number] [place] [phone] Dec, [facility] [address] [place] [id number] [place] [phone] Dec, [facility] [address] [place] [id number] [place] [phone] Dec, Dysthymic disorder F34.1 and Generalized anxiety disorder F41.1 [facility] [address] [address] Dec, Dysuria R30.0 ; Chronic kidn ey disease, stage 4 (severe) N18.4 ; Hypertension I10 ; Dyspepsia R10.13 ; Yeast dermatitis B37.2 ; Palpitations R00.2 ; Hypothyroid E03.9 ; Functional diarrhea K59.1 and Other seasonal allergic rhinitis J30.2 [facility] [address] [place] [id number] [address] [place] [phone] Dec, [facility] [address] [place] [id number] [address] [place] [phone] Nov, Dysuria R30.0 and Stress inc ontinence N39.3 [facility] [address] [place] [id number] [address] [place] [phone] Nov, [facility] [address] [place] [id number] [place] [phone] Nov, [place] [address] [address] Nov, Osteoarthritis of knees, jose ateral M17.0 [place] [address] [address] Nov, Dysthymic disorder F34.1 and Generalized anxiety disorder F41.[address] [address] Nov, [place] [address] [address] Nov, [address] [address] Nov, Urgency of urination R39.[address] [address] Nov, [address] [address] Nov, Chronic kidney disease, stag e 4 (severe) N18.[address] [address] Oct, Hypertension I10 ; Coronary artery disease involving pauma coronary artery of pauma heart, angina presence unspecified I25.10 ; Palpitations R00.2 ; Hypothyroid E03.9 ; Right foot pain M79.671 ; Functional diarrhea K59.1 and Other seasonal allergic rhinitis J30.2 [place] [address] [address] Oct, Dysthymic disorder F34.1 and Generalized anxiety disorder F41.[address] [address] Sep, [address] [address] Sep, [address] [address] Sep, [place] [address] [address] Sep, [place] [address] [address] Sep, [place] [address] [address] Sep, Dysthymic disorder F34.1 and Generalized anxiety disorder F41.1 [place] [address] [address] 16 Sep, 2015 Asthma with acute exacerbati on in adult J45.901 ; Dysuria R30.0 ; Chronic kidney disease, stage 4 (severe) N18.4 and History of anemia Z86.[address] [address] 2015 Generalized anxiety disorder F41.1 and Dysthymic disorder F34.[address] [address] August, Screening breast examination Z12.39 and Acute recurrent maxillary sinusitis J01.[address] [address] August, Osteoarthritis of knees, jose ateral M17.[address] [address] August, Chronic kidney disease, stag e 4 (severe) N18.4 ; Acute non- recurrent maxillary sinusitis J01.00 ; Urinary problem R39.89 ; Bowel habit changes R19.4 ; Functional diarrhea K59.1 and History of colon polyps Z86.[address] [address] Jul, Dysthymic disorder F34.1 and Generalized anxiety disorder F41.[address] [address] Jul, [facility] [address] [facility] [id number] [address] [place] [address] Jul, Dysthymic disorder F34.1 ; G eneralized anxiety disorder F41.1 and long-term use of drug Z79.899 [facility] [address] [facility] [id number] [address] [place] [phone] Jul, [facility] [address] [facility] [id number] [address] [place] [phone] Jun, [facility] [address] [facility] [id number] [address] [place] [phone] Jun, [facility] [address] [facility] [id number] [address] [place] [phone] May, [facility] [address] [facility] [id number] [address] [place] [address] May, Dysthymic disorder F34.1 and Generalized anxiety disorder F41.1 [place] [id number] [facility] [id number] [address] [place] [phone] Apr, Kidney disease N28.9 [place] [address] [facility] [id number] [address] [place] [phone] Apr, Generalized anxiety disorder F41.1 and Dysthymic disorder F34.1 [place] [address] [facility] [id number] [address] [place] [phone] Apr, Chronic kidney disease, stag e 4 (severe) N18.4 [place] [address] [facility] [id number] [address] [place] [address] Apr, Generalized anxiety disorder F41.1 ; Major depression, recurrent F33.9 and Sleep disturbance G47.9 [facility] [address] [facility] [id number] [address] [place] [phone] Mar, Generalized anxiety disorder F41.1 and Dysthymic disorder F34.1 [place] [address] [facility] [id number] [address] [place] [address] Mar, Generalized anxiety disorder F41.1 ; Dysthymic disorder F34.1 and Insomnia G47.00 [facility] [address] [address] Mar, [facility] [address] [address] Mar, [facility] [address] [address] Mar, Osteoarthritis of knees, jose ateral M17.0 [place] [address] [address] Mar, Hypertension I10 ; Hypothyro id E03.9 ; Dysthymic disorder F34.1 ; Chronic kidney disease, stage 4 (severe) N18.4 and Nausea & vomiting R11.2 [place] [address] [address] Mar, Generalized anxiety disorder F41.1 ; Dysthymic disorder F34.1 and Insomnia G47.00 [place] [address] [address] Mar, Dehydration E86.0 ; Chronic kidney disease, stage 4 (severe) N18.4 and Nausea & vomiting R11.2 [facility] [address] [address] Mar, Gastroenteritis K52.9 [facility] [address] [place] [address] Mar, [facility] [address] [address] Mar, [place] [address] [address] Feb, Dysthymic disorder F34.1 and Generalized anxiety disorder F41.1 [facility] [address] [address] Jan, UTI (urinary tract infection ) N39.0 ; Asthma J45.909 ; Coronary artery disease involving pauma coronary artery of pauma heart, angina presence unspecified I25.10 ; Hypertension I10 ; Hypothyroid E03.9 ; Vitamin D deficiency E55.9 ; Insomnia G47.00 ; Palpitations R00.2 ; Depressed F32.9 ; Restless leg G25.81 and Anxiety F41.9 [place] [address] [address] Jan, Dysthymic disorder F34.1 and Generalized anxiety disorder F41.[address] [address] Jan, [place] [address] [address] 30 Dec, 2014 [place] [address] [address] Dec, Alkalosis 276.3 ; Chronic ki dney disease, Stage IV (severe) 585.4 ; Hyperpotassemia 276.7 ; Secondary hyperparathyroidism, renal 588.81 ; Proteinuria 791.0 ; Unspecified vitamin D deficiency 268.9 ; Anemia in chronic kidney disease 285.21 ; Other and unspecified hyperlipidemia 272.4 ; Hypertension, essential, benign 401.1 and Chronic kidney disease (CKD), stage III (moderate) 585.3 [place] [address] [place] [id number] [address] [place] [phone] Dec, [place] [address] [address] Dec, Depressive disorder, not els ewhere classified 311 and Generalized anxiety disorder 300.02 [place] [address] [place] [id number] [place] [address] 10 Dec, 2014 [place] [address] [place] [id number] [address] [place] [address] 08 Dec, 2014 [place] [address] [place] [address] Nov, Depressive disorder, not els ewhere classified 311 and Generalized anxiety disorder 300.02 [facility] [address] [address] Nov, Arthritis of both knees 716. 96 [facility] [address] [address] Nov, PAF (paroxysmal atrial fibri llation) 427.31 ; CAD (coronary artery disease) 414.00 ; Chest pain 786.50 and Chronic kidney disease (CKD) stage G4/A1, severely decreased glomerular filtration rate (GFR) between 15-29 mL/min/1.73 square meter and albuminuria creatinine ratio less than 30 mg/g 585.4 [place] [address] [address] Oct, Coronary atherosclerosis of unspecified type of vessel, pauma or graft 414.00 ; Chronic kidney disease, Stage IV (severe) 585.4 ; Hypertension 401.9 and Edema 782.3 [facility] [address] [address] Oct, Depressive disorder, not els ewhere classified 311 and Generalized anxiety disorder 300.02 [facility] [address] [place] [id number] [place] [address] Oct, Depressive disorder, not els ewhere classified 311 and Generalized anxiety disorder 300.02 [facility] [address] [place] [address] Oct, [facility] [address] [address] Oct, [facility] [address] [place] [id number] [place] [phone] Sep, [facility] [address] [place] [id number] [address] [place] [phone] Sep, Chronic kidney disease, Stag e IV (severe) 585.4 [place] [address] [place] [id number] [address] [place] [address] Sep, [facility] [address] [address] Sep, Coronary atherosclerosis of unspecified type of vessel, pauma or graft 414.00 ; Hypertension 401.9 ; Edema 782.3 and Hypothyroidism 244.9 [facility] [address] [address] Sep, Coronary atherosclerosis of unspecified type of vessel, pauma or graft 414.00 ; Hypertension 401.9 ; Fibromyalgia 729.1 ; Edema 782.3 ; Hypothyroidism 244.9 and Anemia 285.9 [facility] [address] [address] Sep, Anxiety disorder, unspecifie d 300.00 and Depressive disorder, not elsewhere classified 311 [facility] [address] [id number] Sep, [facility] [address] [address] August, Generalized anxiety disorder 300.02 [facility] [address] [address] August, Closed fracture of lateral m alleolus 824.2 [facility] [address] [address] Jul, [facility] [address] [address] Jul, [facility] [address] [place] [id number] [address] [place] [id number] Jun, [facility] [address] [address] Jun, [facility] [address] [place] [id number] [address] [place] [id number] Jun, [facility] [address] [address] Jun, [facility] [address] [id number] [address] [place] [address], [place] [phone] Jun, [facility] [facility] [address] [id number] [address] [place] [address], [place] [address] Jun, [facility] [address] [id number] [address] [place] [address], [place] [address] May, 2014 [facility] [address] [id number] [address] [place] [address], [place] [address] May, 2014 [facility] [address] [id number] [address] [place] [address], [place] [address] May, 2014 [facility] [address] [id number] [address] [place] [address], [place] [address] 18 May, 2014 [facility] [address] [id number] [address] [place] [address], [place] [address] 16 May, 2014 [facility] [address] [id number] [address] [place] [address], [place] [address] 16 May, 2014 [facility] [address] [id number] [address] [place] [address], [place] [address] 13 May, 2014 [facility] [address] [id number] [address] [place] [address], [place] [address] May, [facility] [address] [id number] [address] [place] [address], [place] [address] 10 May, 2014 [facility] [address] [id number] [address] [place] [address], [place] [address] May, [facility] [address] [id number] [address] [place] [address], [place] [address] Apr, [facility] [address] [id number] [address] [place] [address], [place] [address] Apr, [facility] [address] [id number] [address] [place] [address], [place] [address] Mar, [facility] [address] [id number] [address] [place] [address], [place] [address] Mar, [facility] [address] [id number] [address] [place] [address], [place] [address] Mar, [facility] [address] [id number] [address] [place] [address], [place] [address] Mar, [facility] [address] [id number] [address] [place] [address], [place] [address] Mar, [facility] [address] [id number] [address] [place] [address], [place] [address] Mar, [facility] [address] [id number] [address] [place] [address], [place] [address] Mar, [facility] [address] [id number] [address] [place] [address], [place] [address] Feb, [facility] [address] [id number] [address] [place] [address], [place] [address] Feb, [facility] [address] [id number] [address] [place] [address], [place] [address] Feb, [facility] [address] [id number] [address] [place] [address], [place] [address] Jan, [facility] [address] [id number] [address] [place] [address], [place] [address] Jan, [facility] [address] [id number] [address] [place] [address], [place] [address] Jan, [facility] [address] [id number] [address] [place] [address], [place] [address] Jan, [facility] [address] [id number] [address] [place] [address], [place] [address] Jan, [facility] [address] [id number] [address] [place] [address], [place] [address] Jan, [facility] [address] [id number] [address] [place] [address], [place] [address] Jan, [facility] [address] [id number] [address] [place] [address], [place] [address] Jan, [facility] [address] [id number] [address] [place] [address], [place] [address] Jan, [facility] [address] [id number] [address] [place] [address], [place] [address] Jan, [facility] [address] [id number] [address] [place] [address], [place] [address] Nov, [facility] [address] [id number] [address] [place] [address], [place] [address] Nov, [facility] [address] [id number] [address] [place] [address], [place] [address] Nov, [facility] [address] [id number] [address] [place] [address], [place] [address] Oct, [facility] [address] [id number] [address] [place] [address], [place] [address] Oct, [facility] [address] [id number] [address] [place] [address], [place] [address] Oct, [facility] [address] [id number] [address] [place] [address], [place] [address] Oct, [facility] [address] [id number] [address] [place] [address], [place] [address] Oct, [facility] [address] [id number] [address] [place] [address], [place] [address] Oct, [facility] [address] [id number] [address] [place] [address], [place] [address] Oct, [facility] [address] [id number] [address] [place] [address], [place] [address] Oct, [facility] [address] [id number] [address] [place] [address], [place] [address] Oct, [facility] [address] [id number] [address] [place] [address], [place] [address] Sep, [facility] [address] [id number] [address] [place] [address], [place] [address] Sep, [facility] [address] [id number] [address] [place] [address], [place] [address] Sep, [facility] [address] [id number] [address] [place] [address], [place] [address] Sep, [facility] [address] [id number] [address] [place] [address], [place] [address] Sep, [facility] [address] [id number] [address] [place] [address], [place] [address] Sep, [facility] [address] [id number] [address] [place] [address], [place] [address] Sep, [facility] [address] [id number] [address] [place] [address], [place] [address] Sep, [facility] [address] [id number] [address] [place] [address], [place] [address] Sep, [facility] [address] [id number] [address] [place] [address], [place] [address] August, [facility] [address] [id number] [address] [place] [address], [place] [address] August, [facility] [address] [id number] [address] [place] [address], [place] [address] August, [facility] [address] [id number] [address] [place] [address], [place] [address] August, [facility] [address] [id number] [address] [place] [address], [place] [address] August, [facility] [address] [id number] [address] [place] [address], [place] [address] August, [facility] [address] [id number] [address] [place] [address], [place] [address] Jul, [facility] [address] [id number] [address] [place] [address], [place] [address] Jul, [facility] [address] [id number] [address] [place] [address], [place] [address] Jul, [facility] [address] [id number] [address] [place] [address], [place] [address] Jul, [facility] [address] [id number] [address] [place] [address], [place] [address] Jul, [facility] [address] [id number] [address] [place] [address], [place] [address] Jul, [facility] [address] [id number] [address] [place] [address], [place] [address] Jun, [facility] [address] [id number] [address] [place] [address], [place] [address] Jun, [facility] [address] [id number] [address] [place] [address], [place] [address] May, [facility] [address] [id number] [address] [place] [address], [place] [address] May, [facility] [address] [id number] [address] [place] [address], [place] [address] May, [facility] [address] [id number] [address] [place] [address], [place] [address] May, [facility] [address] [id number] [address] [place] [address], [place] [address] Apr, [facility] [address] [id number] [address] [place] [address], [place] [address] Apr, [facility] [address] [id number] [address] [place] [address], [place] [address] Mar, [facility] [address] [id number] [address] [place] [address], [place] [address] Mar, [facility] [address] [id number] [address] [place] [address], [place] [address] 17 Mar, 2013 [facility] [address] [id number] [address] [place] [address], [place] [address] 17 Mar, 2013 [facility] [address] [id number] [address] [place] [address], [place] [address] 05 Mar, 2013 [facility] [address] [id number] [address] [place] [address], [place] [address] 05 Mar, 2013 [facility] [address] [id number] [address] [place] [address], [place] [address] Feb, [facility] [address] [id number] [address] [place] [address], [place] [address] Feb, [facility] [address] [id number] [address] [place] [address], [place] [address] Feb, [facility] [address] [id number] [address] [place] [address], [place] [address] Feb, [facility] [address] [id number] [address] [place] [address], [place] [address] Feb, [facility] [address] [id number] [address] [place] [address], [place] [address] Feb, [facility] [address] [id number] [address] [place] [address], [place] [address] Jan, [facility] [address] [id number] [address] [place] [address], [place] [address] 24 Jan, 2013 [facility] [address] [id number] [address] [place] [address], [place] [address] Jan, [facility] [address] [id number] [address] [place] [address], [place] [address] Jan, [facility] [address] [id number] [address] [place] [address], [place] [address] 08 Jan, 2013 [facility] [address] [id number] [address] [place] [address], [place] [address] Jan, [facility] [address] [id number] [address] [place] [address], [place] [address] Dec, [facility] [address] [id number] [address] [place] [address], [place] [address] Dec, [facility] [address] [id number] [address] [place] [address], [place] [address] Nov, [facility] [address] [id number] [address] [place] [address], [place] [address] Nov, [facility] [address] [id number] [address] [place] [address], [place] [address] Oct, [facility] [address] [id number] [address] [place] [address], [place] [address] Oct, [facility] [address] [id number] [address] [place] [address], [place] [address] Oct, [facility] [address] [id number] [address] [place] [address], [place] [address] Oct, [facility] [address] [id number] [address] [place] [address], [place] [address] Oct, [facility] [address] [id number] [address] [place] [address], [place] [address] Oct, [facility] [address] [id number] [address] [place] [address], [place] [address] Sep, [facility] [address] [id number] [address] [place] [address], [place] [address] Sep, [facility] [address] [id number] [address] [place] [address], [place] [address] Sep, [facility] [address] [id number] [address] [place] [address], [place] [address] Sep, [facility] [address] [id number] [address] [place] [address], [place] [address] August, [facility] [address] [id number] [address] [place] [address], [place] [address] August, [facility] [address] [id number] [address] [place] [address], [place] [address] August, [facility] [address] [id number] [address] [place] [address], [place] [address] August, [facility] [address] [id number] [address] [place] [address], [place] [address] August, [facility] [address] [id number] [address] [place] [address], [place] [address] Jul, [facility] [address] [id number] [address] [place] [address], [place] [address] Jul, [facility] [address] [id number] [address] [place] [address], [place] [address] Jul, [facility] [address] [id number] [address] [place] [address], [place] [address] Jul, [facility] [address] [id number] [address] [place] [address], [place] [address] Jul, [facility] [address] [id number] [address] [place] [address], [place] [address] Jul, [facility] [address] [id number] [address] [place] [address], [place] [address] Jul, [facility] [address] [id number] [address] [place] [address], [place] [address] Jul, [facility] [address] [id number] [address] [place] [address], [place] [address] Jul, [facility] [address] [id number] [address] [place] [address], [place] [address] Jul, [facility] [address] [id number] [id number] Jun, [facility] [address] [id number] [address] [place] [address], [place] [address] Jun, [facility] [address] [id number] [address] [place] [address], [place] [address] Jun, [facility] [address] [id number] [address] [place] [address], [place] [address] Jun, [facility] [address] [id number] [address] [place] [address], [place] [address] Jun, [facility] [address] [id number] [address] [place] [address], [place] [address] May, [facility] [address] [id number] [address] [place] [address], [place] [address] May, [facility] [address] [id number] [address] [place] [address], [place] [address] May, [facility] [address] [id number] [address] [place] [address], [place] [address] Apr, [facility] [address] [id number] [address] [place] [address], [place] [address] Apr, [facility] [address] [id number] [address] [place] [address], [place] [address] Apr, [facility] [address] [id number] [address] [place] [address], [place] [address] Apr, [facility] [address] [id number] [address] [place] [address], [place] [address] Apr, [facility] [address] [id number] [address] [place] [address], [place] [address] Apr, [facility] [address] [id number] [address] [place] [address], [place] [address] Mar, [facility] [address] [id number] [address] [place] [address], [place] [address] Mar, [facility] [address] [id number] [address] [place] [address], [place] [address] Mar, [facility] [address] [id number] [address] [place] [address], [place] [address] Mar, [facility] [address] [id number] [address] [place] [address], [place] [address] Feb, [facility] [address] [id number] [address] [place] [address], [place] [address] Feb, [facility] [address] [id number] [address] [place] [address], [place] [address] Feb, [facility] [address] [id number] [address] [place] [address], [place] [address] Feb, [facility] [address] [id number] [address] [place] [address], [place] [address] Feb, [facility] [address] [id number] [address] [place] [address], [place] [address] Feb, [facility] [address] [id number] [address] [place] [address], [place] [address] Feb, [facility] [address] [id number] [address] [place] [address] Feb, [facility] [address] [id number] [address] [place] [address] Feb, [facility] [address] [id number] [address] [place] [address] Feb, [facility] [address] [id number] [address] [place] [address] Feb, [facility] [address] [id number] [address] [place] [address] Feb, [facility] [address] [id number] [address] [place] [address], [place] [address] Feb, [facility] [address] [id number] [address] [place] [address] Feb, [facility] [address] [id number] [address] [place] [address] Feb, [facility] [address] [id number] [address] [place] [address], [place] [address] 02 Feb, 2012 [facility] [address] [id number] [address] [place] [address], [place] [address] 31 Jan, 2011 [facility] [address] [id number] [address] [place] [address], [place] [address] 31 Jan, 2012 [facility] [address] [id number] [address] [place] [address], [place] [address] 31 Jan, 2011 [facility] [address] [id number] [address] [place] [address], [place] [address] 31 Jan, 2012 [facility] [address] [id number] [address] [place] [address], [place] [address] 30 Jan, 2012 [facility] [address] [id number] [address] [place] [address], [place] [address] Jan, [facility] [address] [id number] [address] [place] [address], [place] [address] Jan, [facility] [address] [id number] [address] [place] [address], [place] [address] 16 Jan, 2012 [facility] [address] [id number] [address] [place] [address], [place] [address] 16 Jan, 2012 [facility] [address] [id number] [address] [place] [address], [place] [address] 15 Jan, 2012 [facility] [address] [id number] [address] [place] [address], [place] [address] 15 Jan, 2012 [facility] [address] [id number] [address] [place] [address], [place] [address] Jan, [facility] [address] [id number] [address] [place] [address], [place] [address] Dec, [facility] [address] [id number] [address] [place] [address], [place] [address] 26 Dec, 2011 [facility] [address] [id number] [address] [place] [address], [place] [address] 24 Sep, 2011 [facility] [address] [id number] [address] [place] [address], [place] [address] 23 Sep, 2011 [facility] [address] [id number] [address] [place] [address], [place] [address] 22 Sep, 2011 [facility] [address] [id number] [address] [place] [address], [place] [address] 21 Sep, 2011 [facility] [address] [id number] [address] [place] [address], [place] [address] 20 Sep, 2011 [facility] [address] [id number] [address] [place] [address], [place] [address] 20 Sep, 2011 [facility] [address] [id number] [address] [place] [address], [place] [address] 07 Sep, 2011 [facility] [address] [id number] [address] [place] [address], [place] [address] 06 Sep, 2011 [facility] [address] [id number] [address] [place] [address], [place] [address] 06 Sep, 2011 [facility] [address] [id number] [address] [place] [address], [place] [address] 05 Sep, 2011 [facility] [address] [id number] [address] [place] [address], [place] [address] 23 Nov, 2011 [facility] [address] [id number] [address] [place] [address], [place] [address] 17 Nov, 2011 [facility] [address] [id number] [address] [place] [address], [place] [address] 13 Nov, 2011 [facility] [address] [id number] [address] [place] [address], [place] [address] 10 Nov, 2011 [facility] [address] [id number] [address] [place] [address], [place] [address] 08 Nov, 2011 [facility] [address] [id number] [address] [place] [address], [place] [address] 07 Nov, 2011 [facility] [address] [id number] [address] [place] [address], [place] [address] Nov, [facility] [address] [id number] [address] [place] [address], [place] [address] Nov, [facility] [address] [id number] [address] [place] [address], [place] [address] Oct, [facility] [address] [id number] [address] [place] [address], [place] [address] Oct, [facility] [address] [id number] [address] [place] [address], [place] [address] Oct, [facility] [address] [id number] [address] [place] [address], [place] [address] Oct, [facility] [address] [id number] [address] [place] [address], [place] [address] Oct, [facility] [address] [id number] [address] [place] [address], [place] [address] Oct, [facility] [address] [id number] [address] [place] [address], [place] [address] Oct, [facility] [address] [id number] [address] [place] [address], [place] [address] Sep, [facility] [address] [id number] [address] [place] [address], [place] [address] Sep, [facility] [address] [id number] [address] [place] [address], [place] [address] August, [facility] [address] [id number] [address] [place] [address], [place] [address] August, [facility] [address] [id number] [address] [place] [address], [place] [address] August, [facility] [address] [id number] [address] [place] [address], [place] [address] August, [facility] [address] [id number] [address] [place] [address], [place] [address] Jul, [facility] [address] [id number] [address] [place] [address], [place] [address] 06 Jul, 2011 [facility] [address] [id number] [address] [place] [address], [place] [address] Jul, [facility] [address] [id number] [address] [place] [address], [place] [address] Jul, [facility] [address] [id number] [address] [place] [address], [place] [address] Jul, [facility] [address] [id number] [address] [place] [address], [place] [address] Jul, [facility] [address] [id number] [address] [place] [address], [place] [address] Jul, [facility] [facility] [address] [id number] [address] [place] [address], [place] [address] Jul, [facility] [address] [id number] [address] [place] [address], [place] [address] Jul, [facility] [address] [id number] [address] [place] [address], [place] [address] 23 Jun, 2011 [facility] [address] [id number] [address] [place] [address], [place] [address] 19 Jun, 2011 [facility] [address] [id number] [address] [place] [address], [place] [address] 15 Jun, 2011 [facility] [address] [id number] [address] [place] [address], [place] [address] 14 Jun, 2011 [facility] [address] [id number] [address] [place] [address], [place] [address] Jun, [facility] [address] [id number] [address] [place] [address], [place] [address] Jun, [facility] [address] [id number] [address] [place] [address], [place] [address] Jun, [facility] [address] [id number] [address] [place] [address], [place] [address] May, [facility] [address] [id number] [address] [place] [address], [place] [address] May, [facility] [address] [id number] [address] [place] [address], [place] [address] May, [facility] [address] [id number] [address] [place] [address], [place] [address] May, [facility] [address] [id number] [address] [place] [address], [place] [address] May, [facility] [address] [id number] [address] [place] [address], [place] [address] Apr, [facility] [address] [id number] [address] [place] [address], [place] [address] Apr, [facility] [address] [id number] [address] [place] [address], [place] [address] Apr, [facility] [address] [id number] [address] [place] [address], [place] [address] Apr, [facility] [address] [id number] [address] [place] [address], [place] [address] Apr, [facility] [address] [id number] [address] [place] [address], [place] [address] Mar, [facility] [address] [id number] [address] [place] [address], [place] [address] Mar, [facility] [address] [id number] [address] [place] [address], [place] [address] Mar, [facility] [address] [id number] [address] [place] [address], [place] [address] Mar, [facility] [address] [id number] [address] [place] [address], [place] [address] Mar, [facility] [address] [id number] [address] [place] [address], [place] [address] Mar, [facility] [address] [id number] [address] [place] [address], [place] [address] Mar, [facility] [address] [id number] [address] [place] [address], [place] [address] Feb, [facility] [address] [id number] [address] [place] [address], [place] [address] Feb, [facility] [address] [id number] [address] [place] [address], [place] [address] Feb, [facility] [address] [id number] [address] [place] [address], [place] [address] Feb, [facility] [address] [id number] [address] [place] [address], [place] [address] Jan, [facility] [address] [id number] [address] [place] [address], [place] [address] Jan, [facility] [address] [id number] [address] [place] [address], [place] [address] Jan, [facility] [address] [id number] [address] [place] [address], [place] [address] Jan, [facility] [address] [id number] [address] [place] [address], [place] [address] Nov, [facility] [address] [id number] [address] [place] [address], [place] [address] Mar, [facility] [address] [id number] [address] [place] [address], [place] [address] Mar, [facility] [address] [id number] [address] [place] [address], [place] [address] Mar, [facility] [address] [id number] [address] [place] [address], [place] [address] Mar, [facility] [address] [id number] [address] [place] [address], [place] [address] Mar, [facility] [address] [id number] [address] [place] [address], [place] [address] Mar, [facility] [address] [facility] [id number] [address] [place] [address] Feb, [facility] [address] [facility] [id number] [address] [place] [address] Feb, [facility] [place] [address] [facility] [id number] [address] [place] [address] Jan, [facility] [place] [address] [facility] [id number] [address] [place] [address] Jan, [facility] [place] [address] [facility] [id number] [address] [place] [address] Jan, IMMUNIZATIONS No Known Immunizations SOCIAL HISTORY Never Assessed REASON FOR VISIT PLAN OF CARE VITAL SIGNS Height 63 in 2014-05-29 Weight 276.21 lbs 2014-05-29 Temperature 98.7 degrees Fahrenheit 2014-05-29 Heart Rate 88 bpm 2014-05-29 Respiratory Rate 22 2014-05-29 Blood pressure systolic 140 mmHg 2014-05-29 Blood pressure diastolic 88 mmHg 2014-05-29 MEDICATIONS Unknown Medications RESULTS No Results PROCEDURES Procedure Date Ordered Result Body Site ASSAY THYROID STIM HORMONE May 29, 2014 NATRIURETIC PEPTIDE May 29, 2014 COMPREHEN METABOLIC PANEL May 29, 2014 CHEST X-RAY May 29, 2014 VENIPUNCT, ROUTINE* May 29, 2014 INSTRUCTIONS MEDICATIONS ADMINISTERED No Known Medications [...] History CPAP Noncompliance_ Dr. Madden advises a [employer] driving. Medical History Bacterial meningitis 12/2016 Medical [...] & 2007 Surgical History Bladder surgery [facility] 03/2016 Surgical History Neurotransmitter placed 10/2017 [...]
--- OUTSIDE RECORDS SUMMARY | 2019-08-01 10:14 | XMS REPORT ---
Author Author Lola MACK Organization [facility] Address [address] [place] [address] Care Team Providers [facility]ing [place] Name Role Phone CAMERON MACK Unavailable PROBLEMS Type Condition ICD9-CM Code WEG28-US Code Onset Dates Condition S tatus SNOMED Code Problem Restless leg G25.81 Active 1194937 8 Problem Insomnia G47.00 Active 013509936 Problem Hypothyroid E03.9 Active 60311458 Problem Palpitations R00.2 Active 0896272 2 Problem Asthma J45.909 Active 016391038 Problem Chronic kidney disease, stage 4 (severe) N18.4 Active 139755828 Problem Depressed F32.9 Active 10008698 Problem Primary osteoarthritis of left knee M17.12 Active 288407755 Problem Generalized anxiety disorder F41.1 A ctive 21196345 Problem Anemia in chronic kidney disease D63.1 Active [id number] Problem Low back pain M54.5 Active 109218 009 Problem Coronary artery disease invo lving [place] coronary artery of [place] heart, angina presence unspecified I25.10 Active [id number] Problem Dysthymic disorder F34.1 Active 7 5188005 Problem Other seasonal allergic rhinitis J30.2 Active 680344959 Problem History of anemia Z86.2 Active 27 5734724 Problem Fibromyalgia M79.7 Active 4852381 05 Problem Hypokalemia E87.6 Active 47426596 Problem Vitamin D deficiency E55.9 Active 01303642 Problem Mixed stress and urge urinary incontinence N39.46 Active 611863493 Problem Chronic kidney disease, unspecified N18.9 Active 749134043 Problem Abnormal chest CT R93.8 Active 44 9841717 Problem Essential (primary) hypertension I10 Active 47146142 Problem Long-term use of high-risk medication Z79.899 Active 661560271 Problem Degenerative tear of medial meniscus of left knee M23.204 Active 066239032 Problem Mood disorder F39 Active 656072 05 Problem Stage 3 chronic kidney disease N18.3 Active 755427253 Problem Perimenopausal vasomotor symptoms N95.1 Active 128974451 Problem History of colon polyps Z86.010 Active 321775599 Problem Other chronic pain G89.29 Active 8 1063269 Problem Functional diarrhea K59.1 Active 93508423 Problem Asthma with acute exacerbation in adult J45.901 Active 505170408 Problem Body mass index (BMI) of 40.0-44.9 in adult Z68.41 Active 028785916 Problem Seasonal allergic rhinitis due to pollen J30.1 Active 45668526 Problem Restless leg syndrome G25.81 Active 54273220 Problem Chronic pain syndrome G89.4 Active 402679986 ALLERGIES No Information ENCOUNTERS Encounter Location Date Diagnosis [facility] [address] [facility] [id number] [address] [place] [phone] Dec, [facility] [address] [facility] [id number] [address] [place] [phone] Nov, [facility] [address] [facility] [id number] [address] [place] [address] Oct, [facility] [address] [facility] [id number] [address] [place] [address] Oct, Cellulitis of left lower ext remity L03.116 and Morbid obesity E66.01 [facility] [address] [facility] [id number] [address] [place] [address] Oct, [facility] [address] [facility] [id number] [address] [place] [id number] Oct, [facility] [address] [facility] [id number] [address] [place] [address] Oct, Generalized anxiety disorder F41.1 and Major depressive disorder, recurrent episode with anxious distress F33.9 [facility] [address] [facility] [id number] [address] [place] [phone] Oct, [facility] [address] [facility] [id number] [address] [place] [address] Oct, Chronic pain syndrome G89.4 [facility] [address] [facility] [id number] [address] [place] [address] 12 Oct, 2018 Chronic pain syndrome G89.4 [facility] [address] [facility] [id number] [address] [place] [phone] Oct, UTI symptoms R39.9 ; Acute c ystitis without hematuria N30.00 and Morbid obesity E66.01 [facility] [address] [facility] [id number] [address] [place] [id number] Oct, [facility] [address] [facility] [id number] [address] [place] [id number] Oct, Chronic pain syndrome G89.4 [facility] [address] [facility] [id number] [address] [place] [id number] Sep, [facility] [address] [facility] [id number] [address] [place] [id number] Sep, Generalized anxiety disorder F41.1 and Major depressive disorder, recurrent episode with anxious distress F33.9 [facility] [address] [facility] [id number] [address] [place] [id number] 17 Sep, 2018 Chronic kidney disease, stag e 4 (severe) N18.4 [facility] [address] [facility] [id number] [address] [place] [address] 2018 Fibromyalgia M79.7 and Chron ic pain syndrome G89.4 [facility] [address] [facility] [id number] [address] [place] [id number] Sep, [address] [address] Sep, Chronic pain syndrome G89.4 [facility] [address] [facility] [id number] [address] [place] [id number] 07 Sep, 2018 [facility] [address] [facility] [id number] [address] [place] [id number] 05 Sep, 2018 Chronic pain syndrome G89.4 ; Fibromyalgia M79.7 and Morbid obesity E66.01 [facility] [address] [id number] [address] [place] [address] August, Generalized anxiety disorder F41.1 and Major depressive disorder, recurrent episode with anxious distress F33.9 [facility] [address] [id number] [address] [place] [address] August, Fibromyalgia M79.7 [facility] [address] [id number] [address] [place] [address] August, Restless leg syndrome G25.81 ; Vitamin D deficiency E55.9 ; Urinary tract infection without hematuria, site unspecified N39.0 ; Pain in right shoulder M25.511 ; Other chronic pain G89.29 ; Biceps tendinitis on right M75.21 and Morbid obesity E66.01 [facility] [address] [id number] [address] [place] [address] Jul, Urinary tract infection with out hematuria, site unspecified N39.0 and Morbid obesity E66.01 [place] [address] [id number] [address] [place] [address] Jul, [facility] [address] [id number] [address] [place] [address] Jul, [facility] [address] [id number] [address] [place] [address] Jul, Fibromyalgia M79.7 [facility] [address] [id number] [address] [place] [address] Jul, Acute pain of right shoulder M25.511 [facility] [address] [id number] [address] [place] [address] Jul, Acute pain of right shoulder M25.511 and Morbid obesity E66.01 [facility] [address] [id number] [address] [place] [address] Jun, [facility] [address] [id number] [address] [place] [id number] Jun, Generalized anxiety disorder F41.1 and Major depressive disorder, recurrent episode with anxious distress F33.9 [facility] [address] [facility] [id number] [address] [place] [id number] Jun, [facility] [address] [facility] [id number] [address] [place] [address] Jun, Fibromyalgia M79.7 [facility] [address] [facility] [id number] [address] [place] [address] 04 Jun, 2018 Acute pain of right shoulder M25.511 ; Acute pain of right hip M25.551 and Morbid obesity E66.01 [place] [address] [facility] [id number] [address] [place] [address] 11 May, 2018 Burning with urination R30.0 ; Vaginal discharge N89.8 ; Chronic kidney disease, stage 4 (severe) N18.4 ; Body mass index (BMI) of 40.0-44.9 in adult Z68.41 and Morbid obesity E66.01 [place] [address] [facility] [id number] [address] [place] [id number] 07 May, 2018 Fibromyalgia M79.7 [place] [address] [facility] [id number] [address] [place] [id number] 06 May, 2018 Generalized anxiety disorder F41.1 and Major depressive disorder, recurrent episode with anxious distress F33.9 [place] [address] [facility] [id number] [address] [place] [address] Apr, [place] [address] [facility] [id number] [address] [place] [address] Apr, Fibromyalgia M79.7 [facility] [address] [facility] [id number] [address] [place] [id number] 14 Mar, 2018 Acute UTI N39.0 and Dysuria R30.0 [place] [address] [facility] [id number] [address] [place] [id number] 10 Mar, 2018 Fibromyalgia M79.7 [place] [address] [facility] [id number] [address] [place] [phone] Feb, [facility] [address] [id number] [address] [place] [id number] 14 Feb, 2018 [facility] [address] [id number] [address] [place] [id number] Feb, [facility] [address] [id number] [address] [place] [phone] Feb, Fibromyalgia M79.7 [facility] [address] [facility] [id number] [address] [place] [id number] 08 Feb, 2018 Complicated UTI (urinary tra ct infection) N39.0 [facility] [address] [id number] [address] [place] [id number] Feb, [facility] [address] [facility] [id number] [address] [place] [address] Jan, Generalized anxiety disorder F41.1 and Major depressive disorder, recurrent episode with anxious distress F33.9 [facility] [address] [facility] [id number] [address] [place] [address] Jan, Acute conjunctivitis of left eye, unspecified acute conjunctivitis type H10.32 [facility] [address] [facility] [id number] [address] [place] [id number] Jan, [facility] [address] [facility] [id number] [address] [place] [phone] Jan, Acute non-recurrent maxillar y sinusitis J01.00 ; Dysuria R30.0 ; Perimenopausal vasomotor symptoms N95.1 and Fibromyalgia M79.7 [facility] [address] [id number] [address] [place] [id number] 28 Dec, 2017 Vitamin D deficiency E55.9 [facility] [address] [facility] [id number] [address] [place] [id number] 27 Dec, 2017 Vitamin D deficiency E55.9 [facility] [address] [facility] [id number] [address] [place] [id number] 24 Dec, 2017 Vitamin D deficiency E55.9 [facility] [address] [id number] [address] [place] [id number] Dec, [facility] [address] [id number] [address] [place] [id number] Dec, Fibromyalgia M79.7 [facility] [address] [id number] [address] [place] [phone] Nov, [facility] [address] [id number] [address] [place] [id number] Nov, [facility] [address] [id number] [address] [place] [id number] Nov, [facility] [address] [id number] [address] [place] [id number] Nov, Fibromyalgia M79.7 ; Vision changes H53.9 ; Chest wall pain R07.89 and Chronic pain syndrome G89.4 [facility] [address] [id number] [address] [place] [phone] Nov, [facility] [address] [id number] [address] [place] [id number] Nov, Rash of hands R21 [facility] [address] [facility] [id number] [address] [place] [id number] Nov, Generalized anxiety disorder F41.1 and Major depressive disorder, recurrent episode with anxious distress F33.9 [facility] [address] [id number] [address] [place] [id number] Nov, Fibromyalgia M79.7 [facility] [address] [id number] [address] [place] [id number] Nov, Complicated UTI (urinary tra ct infection) N39.0 [facility] [address] [id number] [address] [place] [id number] Oct, [facility] [address] [id number] [address] [place] [id number] Oct, Generalized anxiety disorder F41.1 and Major depressive disorder, recurrent episode with anxious distress F33.9 [facility] [address] [id number] [address] [place] [id number] Oct, [facility] [address] [id number] [address] [place] [id number] Oct, Fibromyalgia M79.7 [facility] [address] [id number] [address] [place] [address] Sep, Restless leg syndrome G25.81 and Restless leg G25.81 [facility] [address] [id number] [address] [place] [id number] Sep, [facility] [address] [id number] [address] [place] [id number] Sep, Seasonal allergic rhinitis d ue to pollen J30.1 ; Screening for breast cancer Z12.31 ; Chest pain at rest R07.9 ; Restless leg syndrome G25.81 ; Essential (primary) hypertension I10 and Depressed F32.9 [facility] [address] [id number] [address] [place] [phone] August, Fibromyalgia M79.7 [facility] [address] [id number] [address] [place] [phone] August, [facility] [address] [facility] [id number] [address] [place] [id number] August, [facility] [address] [id number] [address] [place] [id number] August, Abnormal chest CT R93.8 [facility] [address] [id number] [address] [place] [id number] August, Generalized anxiety disorder F41.1 and Major depressive disorder, recurrent episode with anxious distress F33.9 [facility] [address] [id number] [address] [place] [address] August, Abnormal chest CT R93.8 [facility] [address] [id number] [address] [place] [id number] Jul, [facility] [address] [facility] [id number] [address] [place] [address] Jul, Chronic kidney disease, stag e 4 (severe) N18.4 [facility] [address] [facility] [id number] [address] [place] [id number] Jul, [facility] [address] [facility] [id number] [address] [place] [id number] Jul, Restless leg G25.81 ; Mixed stress and urge urinary incontinence N39.46 and Fibromyalgia M79.7 [place] [address] [facility] [id number] [address] [place] [address] Jul, Chronic kidney disease, stag e 4 (severe) N18.4 [facility] [address] [facility] [id number] [address] [place] [address] Jun, Orthostatic hypotension I95. 1 ; Chronic kidney disease, stage 4 (severe) N18.4 ; Chest wall discomfort R07.89 and Body mass index (BMI) of 40.0- 44.9 in adult Z68.41 [place] [address] [facility] [id number] [address] [place] [address] Jun, [facility] [address] [facility] [id number] [address] [place] [id number] Jun, Orthostatic hypotension I95. 1 [facility] [address] [facility] [id number] [address] [place] [phone] Jun, [facility] [address] [facility] [id number] [address] [place] [id number] Jun, Orthostatic hypotension I95. 1 ; Dysuria R30.0 and Acute cystitis without hematuria N30.00 [facility] [address] [facility] [id number] [address] [place] [id number] Jun, [facility] [address] [facility] [id number] [address] [place] [id number] Jun, Chronic kidney disease, stag e 4 (severe) N18.4 [facility] [address] [facility] [id number] [address] [place] [id number] Jun, Fibromyalgia M79.7 [facility] [address] [facility] [id number] [address] [place] [address] Jun, [facility] [address] [facility] [id number] [address] [place] [id number] Jun, [facility] [address] [facility] [id number] [address] [place] [id number] May, Abnormal chest [address] R93.8 and Stage 3 chronic kidney disease N18.3 [facility] [address] [facility] [id number] [address] [place] [id number] May, Chronic kidney disease, stag e 4 (severe) N18.4 [facility] [address] [facility] [id number] [address] [place] [id number] May, Chronic kidney disease, stag e 4 (severe) N18.4 [facility] [address] [facility] [id number] [address] [place] [id number] May, Abnormal chest [address] R93.8 [facility] [address] [facility] [id number] [address] [place] [address] May, [facility] [address] [facility] [id number] [address] [place] [address] May, [facility] [address] [facility] [id number] [address] [place] [id number] May, Generalized anxiety disorder F41.1 and Major depressive disorder, recurrent episode with anxious distress F33.9 [facility] [address] [facility] [id number] [address] [place] [address] May, Mood disorder F39 [facility] [address] [facility] [id number] [address] [place] [id number] Apr, [facility] [address] [facility] [id number] [address] [place] [address] Apr, Infected skin lesion L08.9 a nd Muscle strain of right shoulder region, initial encounter S46.911A [facility] [address] [id number] [address] [place] [id number] Apr, Generalized anxiety disorder F41.1 and Major depressive disorder, recurrent episode with anxious distress F33.9 [facility] [address] [id number] [address] [place] [id number] Apr, [facility] [address] [id number] [address] [place] [address] Apr, Recent urinary tract infecti on Z87.440 and Hypothyroid E03.9 [facility] [address] [id number] [address] [place] [id number] Apr, Generalized anxiety disorder F41.1 and Major depressive disorder, recurrent episode with anxious distress F33.9 [place] [address] [id number] [address] [place] [address] Apr, Recent urinary tract infecti on Z87.440 [facility] [address] [id number] [address] [place] [id number] Mar, [facility] [address] [id number] [address] [place] [address] Mar, Dysuria R30.0 ; Acute cystit is without hematuria N30.00 and BMI 40.0-44.9, adult Z68.41 [facility] [address] [id number] [address] [place] [id number] 14 Mar, 2017 [facility] [address] [id number] [address] [place] [id number] Mar, [facility] [address] [id number] [address] [place] [address] Mar, Generalized anxiety disorder F41.1 and Major depressive disorder, recurrent episode with anxious distress F33.9 [facility] [address] [id number] [address] [place] [id number] Feb, Conjunctivitis, bacterial H1 0.9 [facility] [address] [facility] [id number] [address] [place] [id number] Feb, [facility] [address] [facility] [id number] [address] [place] [id number] Feb, Conjunctivitis, bacterial H1 0.9 [facility] [address] [facility] [id number] [address] [place] [id number] Feb, [facility] [address] [facility] [id number] [address] [place] [id number] Feb, Dysuria R30.0 ; Acute cystit is N30.00 and BMI 40.0-44.9, adult Z68.41 [place] [address] [place] [id number] [place] [address] Feb, [facility] [address] [place] [id number] [place] [address] Feb, Generalized anxiety disorder F41.1 and Major depressive disorder, recurrent episode with anxious distress F33.9 [place] [address] [place] [id number] [place] [address] Feb, Mood disorder F39 and BMI 40 .0-44.9, adult Z68.41 [place] [address] [place] [id number] [address] [place] [phone] Jan, [facility] [id number] [place] [phone] Jan, [facility] [address] [place] [place] [id number] [place] [phone] Jan, Hypothyroid E03.9 [facility] [address] [place] [place] [id number] [place] [phone] Jan, [facility] [address] [place] [place] [id number] [place] [phone] Jan, Chronic kidney disease, unsp ecified N18.9 ; Hypokalemia E87.6 ; Essential (primary) hypertension I10 ; Fibromyalgia M79.7 ; Coronary artery disease involving [place] coronary artery of [place] heart, angina presence unspecified I25.10 ; Hypothyroid E03.9 and Encounter for immunization Z23 [facility] [address] [id number] [address] [place] [phone] 04 Jan, 2017 Hypothyroid E03.9 [place] [address] [id number] [address] [place] [phone] Jan, [place] [address] [id number] [address] [place] [phone] 28 Dec, 2016 Vitamin D deficiency E55.9 [place] [address] [address] [facility] [id number] [address] [place] [address] 28 Dec, 2016 Primary osteoarthritis of le ft knee M17.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 [place] [address] [id number] [address] [place] [address] 19 Dec, 2016 Fibromyalgia M79.7 [place] [address] [id number] [address] [place] [phone] 18 Dec, 2016 Mood disorder F39 [place] [address] [address] [facility] [id number] [address] [place] [address] 13 Dec, 2016 [place] [address] [address] [facility] [id number] [address] [place] [address] 13 Dec, 2016 Generalized anxiety disorder F41.1 and Major depressive disorder, recurrent episode with anxious distress F33.9 [facility] [address] [id number] [address] [place] [id number] 11 Dec, 2016 [place] [address] [address] [facility] [id number] [address] [place] [id number] 08 Dec, 2016 Streptococcal meningitis G00 .2 [facility] [address] [facility] [id number] [address] [place] [address] 07 Dec, 2016 Streptococcal meningitis G00 .2 [facility] [address] [id number] [address] [place] [id number] 07 Dec, 2016 [facility] [address] [facility] [id number] [address] [place] [address] Dec, Streptococcal meningitis G00 .2 [facility] [address] [facility] [id number] [address] [place] [phone] Dec, [facility] [address] [facility] [id number] [address] [place] [id number] Dec, Major depressive disorder, r ecurrent episode with anxious distress F33.9 [place] [address] [address] [facility] [id number] [address] [place] [id number] Nov, Fever, unspecified fever cau se R50.9 [facility] [address] [facility] [id number] [address] [place] [address] Nov, [place] [address] [address] [facility] [id number] [address] [place] [phone] Nov, Hypothyroid E03.9 [facility] [address] [facility] [id number] [address] [place] [id number] Nov, Generalized anxiety disorder F41.1 and Major depressive disorder, recurrent episode with anxious distress F33.9 [facility] [address] [facility] [id number] [address] [place] [address] Nov, [facility] [address] [id number] [address] [place] [id number] Oct, Dental examination Z01.20 [facility] [address] [facility] [id number] [address] [place] [id number] Oct, Generalized anxiety disorder F41.1 and Major depressive disorder, recurrent episode with anxious distress F33.9 [facility] [address] [facility] [id number] [address] [place] [address] Oct, Chronic kidney disease, stag e 4 (severe) N18.4 [facility] [address] [facility] [id number] [address] [place] [address] Oct, [facility] [address] [facility] [id number] [address] [place] [address] Oct, Fibromyalgia M79.7 [facility] [address] [facility] [id number] [address] [place] [address] Oct, [facility] [address] [facility] [id number] [address] [place] [id number] Oct, Generalized anxiety disorder F41.1 ; Major depressive disorder, recurrent episode with anxious distress F33.9 and Bipolar disorder, current episode manic without psychotic features F31.10 [place] [address] [address] [facility] [id number] [address] [place] [phone] Sep, [place] [address] [address] [facility] [id number] [address] [place] [id number] Sep, [place] [address] [address] [facility] [id number] [address] [place] [address] Sep, Vitamin D deficiency E55.9 [place] [address] [address] [facility] [id number] [address] [place] [address] Sep, Vitamin D deficiency E55.9 [place] [address] [address] [facility] [id number] [address] [place] [address] Sep, [place] [address] [address] [facility] [id number] [address] [place] [address] Sep, Chronic kidney disease, stag e 4 (severe) N18.4 ; Hypothyroid E03.9 ; Restless leg G25.81 ; Fibromyalgia M79.7 ; Essential (primary) hypertension I10 ; Vitamin D deficiency E55.9 ; Dyspepsia R10.13 ; Anemia in chronic kidney disease D63.1 ; Chronic kidney disease, unspecified N18.9 ; Coronary artery disease involving [place] coronary artery of [place] heart, angina presence unspecified I25.10 ; Screening breast examination Z12.39 and Low back pain M54.5 [place] [address] [address] [facility] [id number] [address] [place] [id number] August, Generalized anxiety disorder F41.1 and Major depressive disorder, recurrent episode with anxious distress F33.9 [place] [address] [place] [id number] [address] [place] [address] August, Generalized anxiety disorder F41.1 and Major depressive disorder, recurrent episode with anxious distress F33.9 [place] [address] [facility] [id number] [address] [place] [address] August, Fibromyalgia M79.7 [place] [address] [place] [id number] [address] [place] [address] Jul, Generalized anxiety disorder F41.1 and Major depressive disorder, recurrent episode with anxious distress F33.9 [place] [address] [address] [facility] [id number] [address] [place] [address] Jul, Fibromyalgia M79.7 [place] [address] [place] [id number] [address] [place] [id number] Jul, Generalized anxiety disorder F41.1 [place] [address] [address] [facility] [id number] [address] [place] [address] May, [place] [address] [place] [id number] [address] [place] [address] May, Hypothyroid E03.9 [place] [address] [place] [id number] [address] [place] [address] May, Chronic kidney disease, stag e 4 (severe) N18.4 ; Hypothyroid E03.9 ; Restless leg G25.81 ; Fibromyalgia M79.7 ; Essential (primary) hypertension I10 ; Vitamin D deficiency E55.9 ; Dyspepsia R10.13 ; Acute non-recurrent maxillary sinusitis J01.00 ; Anemia in chronic kidney disease D63.1 ; Chronic kidney disease, unspecified N18.9 and Coronary artery disease involving [place] coronary artery of [place] heart, angina presence unspecified I25.10 [place] [address] [place] [id number] [address] [place] [address] May, Vitamin D deficiency, unspec ified E55.9 [facility] [address] [id number] [address] [place] [address] May, Generalized anxiety disorder F41.1 and Major depressive disorder, recurrent episode with anxious distress F33.9 [facility] [address] [id number] [address] [place] [address] Apr, Pain in right knee M25.561 a nd Pain in left knee M25.562 [facility] [address] [id number] [address] [place] [address] Apr, [facility] [address] [id number] [address] [place] [address] Apr, [facility] [address] [id number] [address] [place] [address] Apr, [facility] [address] [id number] [address] [place] [id number] Mar, Generalized anxiety disorder F41.1 and Major depressive disorder, recurrent episode with anxious distress F33.9 [facility] [address] [id number] [address] [place] [address] Mar, Generalized anxiety disorder F41.1 and Major depressive disorder, recurrent episode with anxious distress F33.9 [facility] [address] [id number] [address] [place] [address] Mar, [facility] [address] [id number] [address] [place] [id number] Mar, [facility] [address] [id number] [address] [place] [address] Mar, [facility] [address] [facility] [id number] [address] [place] [address] Mar, Asthma J45.909 and Fibromyal elvira M79.7 [facility] [address] [facility] [id number] [address] [place] [address] Mar, 2016 Chronic kidney disease, stag e 4 (severe) N18.4 ; Vitamin D deficiency E55.9 and Essential (primary) hypertension I10 [place] [address] [facility] [id number] [address] [place] [phone] Feb, [facility] [address] [place] [id number] [address] [place] [address] Feb, Dysuria R30.0 ; Mixed stress and urge urinary incontinence N39.46 ; Fibromyalgia M79.7 and Chronic kidney disease, stage IV (severe) N18.4 [facility] [address] [facility] [id number] [address] [place] [address] Feb, Chronic kidney disease, stag e 4 (severe) 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 [place] [address] [place] [id number] [address] [place] [address] Feb, Chronic kidney disease, stag e 4 (severe) N18.4 [place] [address] [place] [id number] [address] [place] [address] Feb, [facility] [address] [place] [id number] [address] [place] [address] Feb, Vitamin D deficiency, unspec ified E55.9 [place] [address] [place] [id number] [address] [place] [address] Jan, [facility] [address] [place] [id number] [address] [place] [address] Jan, [facility] [address] [place] [id number] [address] [place] [address] Dec, [place] [address] [place] [id number] [address] [place] [address] Dec, Chronic kidney disease, 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 [facility] [address] [place] [id number] [address] [place] [address] Dec, Dysthymic disorder F34.1 and Generalized anxiety disorder F41.1 [place] [address] [place] [id number] [address] [place] [address] Dec, [facility] [address] [address] Dec, [facility] [address] [address] Dec, Dysthymic disorder F34.1 and Generalized anxiety disorder F41.1 [facility] [address] [address] Dec, Dysuria R30.0 ; Chronic kidn ey disease, stage 4 (severe) N18.4 ; Hypertension I10 ; Dyspepsia R10.13 ; Yeast dermatitis B37.2 ; Palpitations R00.2 ; Hypothyroid E03.9 ; Functional diarrhea K59.1 and Other seasonal allergic rhinitis J30.2 [facility] [address] [address] Dec, [facility] [address] [address] Nov, Dysuria R30.0 and Stress inc ontinence N39.3 [facility] [address] [address] Nov, [facility] [address] [address] Nov, [facility] [address] [address] Nov, Osteoarthritis of knees, jose ateral M17.0 [facility] [address] [place] [id number] [place] [address] Nov, Dysthymic disorder F34.1 and Generalized anxiety disorder F41.1 [facility] [address] [address] Nov, [facility] [address] [address] Nov, [facility] [address] [address] Nov, Urgency of urination R39.15 [place] [address] [address] Nov, [place] [address] [address] Nov, Chronic kidney disease, stag e 4 (severe) N18.4 [place] [address] [address] Oct, Hypertension I10 ; Coronary artery disease involving [place] coronary artery of [place] heart, angina presence unspecified I25.10 ; Palpitations R00.2 ; Hypothyroid E03.9 ; Right foot pain M79.671 ; Functional diarrhea K59.1 and Other seasonal allergic rhinitis J30.2 [place] [address] [address] Oct, Dysthymic disorder F34.1 and Generalized anxiety disorder F41.1 [place] [address] [address] Sep, [place] [address] [address] Sep, [place] [address] [address] Sep, [place] [address] [address] Sep, [facility] [address] [address] Sep, [place] [address] [address] Sep, Dysthymic disorder F34.1 and Generalized anxiety disorder F41.1 [place] [address] [address] Sep, Asthma with acute exacerbati on in adult J45.901 ; Dysuria R30.0 ; Chronic kidney disease, stage 4 (severe) N18.4 and History of anemia Z86.2 [place] [address] [place] [address] Sep, Generalized anxiety disorder F41.1 and Dysthymic disorder F34.1 [place] [address] [address] August, Screening breast examination Z12.39 and Acute recurrent maxillary sinusitis J01.01 [place] [address] [place] [id number] [place] [address] August, Osteoarthritis of knees, jose ateral M17.0 [place] [address] [place] [id number] [place] [address] August, Chronic kidney disease, stag e 4 (severe) N18.4 ; Acute non- recurrent maxillary sinusitis J01.00 ; Urinary problem R39.89 ; Bowel habit changes R19.4 ; Functional diarrhea K59.1 and History of colon polyps Z86.010 [place] [address] [address] Jul, Dysthymic disorder F34.1 and Generalized anxiety disorder F41.1 [place] [address] [address] Jul, [place] [address] [address] Jul, Dysthymic disorder F34.1 ; G eneralized anxiety disorder F41.1 and half-way use of drug Z79.899 [place] [address] [address] Jul, [place] [address] [place] [id number] [address] [place] [address] Jun, [place] [address] [address] Jun, [facility] [id number] [place] [address] May, [facility] [address] [address] May, Dysthymic disorder F34.1 and Generalized anxiety disorder F41.1 [place] [address] [address] Apr, Kidney disease N28.9 [place] [address] [address] Apr, Generalized anxiety disorder F41.1 and Dysthymic disorder F34.1 [place] [address] [address] Apr, Chronic kidney disease, stag e 4 (severe) N18.4 [place] [address] [address] Apr, Generalized anxiety disorder F41.1 ; Major depression, recurrent F33.9 and Sleep disturbance G47.9 [place] [address] [address] Mar, Generalized anxiety disorder F41.1 and Dysthymic disorder F34.1 [place] [address] [address] Mar, Generalized anxiety disorder F41.1 ; Dysthymic disorder F34.1 and Insomnia G47.00 [place] [address] [place] [id number] [address] [place] [address] Mar, [place] [address] [address] Mar, [place] [address] [address] Mar, Osteoarthritis of knees, jose ateral M17.0 [place] [address] [address] Mar, Hypertension I10 ; Hypothyro id E03.9 ; Dysthymic disorder F34.1 ; Chronic kidney disease, stage 4 (severe) N18.4 and Nausea & vomiting R11.2 [place] [address] [address] Mar, Generalized anxiety disorder F41.1 ; Dysthymic disorder F34.1 and Insomnia G47.00 [place] [address] [address] Mar, Dehydration E86.0 ; Chronic kidney disease, stage 4 (severe) N18.4 and Nausea & vomiting R11.2 [facility] [address] [address] 08 Mar, 2015 Gastroenteritis K52.[address] [address] Mar, [place] [address] [address] Mar, [address] [address] Feb, Dysthymic disorder F34.1 and Generalized anxiety disorder F41.[address] [address] Jan, UTI (urinary tract infection ) N39.0 ; Asthma J45.909 ; Coronary artery disease involving [place] coronary artery of [place] heart, angina presence unspecified I25.10 ; Hypertension I10 ; Hypothyroid E03.9 ; Vitamin D deficiency E55.9 ; Insomnia G47.00 ; Palpitations R00.2 ; Depressed F32.9 ; Restless leg G25.81 and Anxiety F41.[address] [address] Jan, Dysthymic disorder F34.1 and Generalized anxiety disorder F41.1 [place] [address] [address] 07 Jan, 2015 [place] [address] [address] 30 Dec, 2014 [place] [address] [address] 28 Dec, 2014 Alkalosis 276.3 ; Chronic ki dney disease, Stage IV (severe) 585.4 ; Hyperpotassemia 276.7 ; Secondary hyperparathyroidism, renal 588.81 ; Proteinuria 791.0 ; Unspecified vitamin D deficiency 268.9 ; Anemia in chronic kidney disease 285.21 ; Other and unspecified hyperlipidemia 272.4 ; Hypertension, essential, benign 401.1 and Chronic kidney disease (CKD), stage III (moderate) 585.3 [place] [address] [address] 16 Dec, [address] [address] Dec, Depressive disorder, not els ewhere classified 311 and Generalized anxiety disorder 300.[address] [address] Dec, [place] [address] [address] Dec, [place] [address] [address] Nov, Depressive disorder, not els ewhere classified 311 and Generalized anxiety disorder 300.02 [place] [address] [address] Nov, Arthritis of both knees 716. [address] [address] 07 Nov, 2014 PAF (paroxysmal atrial fibri llation) 427.31 ; CAD (coronary artery disease) 414.00 ; Chest pain 786.50 and Chronic kidney disease (CKD) stage G4/A1, severely decreased glomerular filtration rate (GFR) between 15-29 mL/min/1.73 square meter and albuminuria creatinine ratio less than 30 mg/g 585.[address] [address] Oct, Coronary atherosclerosis of unspecified type of vessel, [place] or graft 414.00 ; Chronic kidney disease, Stage IV (severe) 585.4 ; Hypertension 401.9 and Edema 782.[address] [address] Oct, Depressive disorder, not els ewhere classified 311 and Generalized anxiety disorder 300.[address] [address] Oct, Depressive disorder, not els ewhere classified 311 and Generalized anxiety disorder 300.[address] [address] Oct, [address] [address] Oct, [place] [address] [address] Sep, [address] [address] Sep, Chronic kidney disease, Stag e IV (severe) 585.[address] [address] Sep, [address] [address] Sep, Coronary atherosclerosis of unspecified type of vessel, [place] or graft 414.00 ; Hypertension 401.9 ; Edema 782.3 and Hypothyroidism 244.[address] [address] Sep, Coronary atherosclerosis of unspecified type of vessel, [place] or graft 414.00 ; Hypertension 401.9 ; Fibromyalgia 729.1 ; Edema 782.3 ; Hypothyroidism 244.9 and Anemia 285.9 [facility] [address] [facility] [id number] [address] [place] [address] Sep, Anxiety disorder, unspecifie d 300.00 and Depressive disorder, not elsewhere classified 311 [facility] [address] [facility] [id number] [address] [place] [address] Sep, [facility] [address] [place] [id number] [address] [place] [address] August, Generalized anxiety disorder 300.02 [facility] [address] [facility] [id number] [address] [place] [address] August, Closed fracture of lateral m alleolus 824.2 [facility] [address] [facility] [id number] [address] [place] [address] Jul, [facility] [address] [place] [id number] [address] [place] [address] Jul, [facility] [address] [place] [id number] [address] [place] [address] Jun, [facility] [address] [place] [id number] [address] [place] [address] Jun, [facility] [address] [place] [id number] [address] [place] [address] Jun, [facility] [address] [place] [id number] [address] [place] [address] Jun, [facility] [address] [facility] [id number] [address] [place] [address] Jun, [facility] [address] [facility] [id number] [address] [place] [address] Jun, [facility] [address] [place] [id number] [address] [place] [address] May, [facility] [address] [facility] [id number] [address] [place] [address] May, [facility] [address] [id number] [address] [place] [address], [place] [address] 18 May, 2014 [facility] [address] [id number] [address] [place] [address], [place] [address] 18 May, 2014 [facility] [address] [id number] [address] [place] [address], [place] [address] 16 May, 2014 [facility] [address] [id number] [address] [place] [address], [place] [address] 16 May, 2014 [facility] [address] [id number] [address] [place] [address], [place] [address] 13 May, 2014 [facility] [address] [id number] [address] [place] [address], [place] [address] 13 May, 2014 [facility] [address] [id number] [address] [place] [address], [place] [address] 10 May, 2014 [facility] [address] [id number] [address] [place] [address], [place] [address] 10 May, 2014 [facility] [address] [id number] [address] [place] [address], [place] [address] Apr, [facility] [address] [id number] [address] [place] [address], [place] [address] Apr, [facility] [address] [id number] [address] [place] [address], [place] [address] Mar, [facility] [address] [id number] [address] [place] [address], [place] [address] Mar, [facility] [address] [id number] [address] [place] [address], [place] [address] Mar, [facility] [address] [id number] [address] [place] [address], [place] [address] Mar, [facility] [address] [id number] [address] [place] [address], [place] [address] Mar, [facility] [address] [id number] [address] [place] [id number] Mar, [facility] [address] [id number] [address] [place] [address], [place] [address] Mar, [facility] [address] [id number] [address] [place] [id number] Feb, [facility] [address] [id number] [address] [place] [address], [place] [address] Feb, [facility] [address] [address] [id number] [address] [place] [address], [place] [address] Feb, [facility] [address] [id number] [address] [place] [address], [place] [address] Jan, [facility] [address] [id number] [address] [place] [address], [place] [address] Jan, [facility] [address] [id number] [address] [place] [address], [place] [address] Jan, [facility] [address] [id number] [address] [place] [address], [place] [address] Jan, [facility] [address] [id number] [address] [place] [address], [place] [address] Jan, [facility] [address] [id number] [address] [place] [address], [place] [address] Jan, [facility] [address] [id number] [address] [place] [address], [place] [address] Jan, [facility] [address] [id number] [address] [place] [address], [place] [address] Jan, [facility] [address] [id number] [address] [place] [address], [place] [address] Jan, [facility] [address] [id number] [address] [place] [address], [place] [address] Jan, [facility] [address] [id number] [address] [place] [address], [place] [address] Nov, [facility] [address] [id number] [facility] [place] [address] Nov, [facility] [address] [id number] [facility] [place] [address] Nov, [facility] [address] [id number] [facility] [place] [address] Oct, [facility] [address] [id number] [facility] [place] [address] Oct, [facility] [address] [id number] [facility] [place] [address] Oct, [facility] [address] [id number] [address] [place] [address], [place] [address] Oct, [facility] [address] [id number] [address] [place] [address], [place] [address] Oct, [facility] [address] [id number] [address] [place] [address], [place] [address] Oct, [facility] [address] [id number] [address] [place] [address], [place] [address] Oct, [facility] [address] [id number] [address] [place] [address], [place] [address] Oct, [facility] [address] [id number] [address] [place] [address], [place] [address] Oct, [facility] [address] [id number] [address] [place] [address], [place] [address] Sep, [facility] [address] [id number] [address] [place] [address], [place] [address] Sep, [facility] [address] [id number] [address] [place] [address], [place] [address] Sep, [facility] [address] [id number] [address] [place] [address], [place] [address] Sep, [facility] [address] [id number] [address] [place] [address], [place] [address] Sep, [facility] [address] [id number] [facility] [place] [address] Sep, [facility] [address] [id number] [address] [place] [address], [place] [address] Sep, [facility] [address] [id number] [address] [place] [address], [place] [address] Sep, [facility] [address] [id number] [address] [place] [address], [place] [address] Sep, [facility] [address] [id number] [address] [place] [address], [place] [address] August, [facility] [address] [id number] [address] [place] [address], [place] [address] August, [facility] [address] [id number] [address] [place] [address], [place] [address] August, [facility] [address] [id number] [address] [place] [address], [place] [address] August, [facility] [address] [id number] [address] [place] [address], [place] [address] August, [facility] [address] [id number] [address] [place] [address], [place] [address] August, [facility] [address] [id number] [address] [place] [address], [place] [address] Jul, [facility] [address] [id number] [address] [place] [address], [place] [address] Jul, [facility] [address] [id number] [address] [place] [address], [place] [address] Jul, [facility] [address] [id number] [address] [place] [address], [place] [address] Jul, [facility] [address] [id number] [address] [place] [address], [place] [address] Jul, [facility] [address] [id number] [address] [place] [address], [place] [address] 07 Jul, 2013 [facility] [address] [id number] [address] [place] [address], [place] [address] Jun, [facility] [address] [id number] [address] [place] [address], [place] [address] 10 Jun, 2013 [facility] [address] [id number] [address] [place] [address], [place] [address] May, [facility] [address] [id number] [address] [place] [address], [place] [address] May, [facility] [address] [id number] [address] [place] [address], [place] [address] May, [facility] [address] [id number] [address] [place] [address], [place] [address] May, [facility] [address] [id number] [address] [place] [address], [place] [address] Apr, [facility] [address] [id number] [address] [place] [address], [place] [address] Apr, [facility] [address] [id number] [address] [place] [address], [place] [address] Mar, [facility] [address] [id number] [address] [place] [address], [place] [address] 18 Mar, 2013 [facility] [address] [id number] [address] [place] [address], [place] [address] 17 Mar, 2013 [facility] [address] [id number] [address] [place] [address], [place] [address] 17 Mar, 2013 [facility] [address] [id number] [address] [place] [address], [place] [address] 05 Mar, 2013 [facility] [address] [id number] [address] [place] [address], [place] [address] 05 Mar, 2013 [facility] [address] [id number] [address] [place] [address], [place] [address] Feb, [facility] [address] [id number] [address] [place] [address], [place] [address] Feb, [facility] [address] [id number] [address] [place] [address], [place] [address] Feb, [facility] [address] [id number] [address] [place] [address], [place] [address] Feb, [facility] [address] [id number] [address] [place] [address], [place] [address] Feb, [facility] [address] [id number] [address] [place] [address], [place] [address] Feb, [facility] [address] [id number] [address] [place] [address], [place] [address] Jan, [facility] [address] [id number] [address] [place] [address], [place] [address] Jan, [facility] [address] [id number] [address] [place] [address] Jan, [facility] [address] [id number] [address] [place] [address], [place] [address] Jan, [facility] [address] [id number] [address] [place] [address] Jan, [facility] [address] [id number] [address] [place] [address] Jan, [facility] [address] [id number] [address] [place] [address] Dec, [facility] [address] [id number] [address] [place] [address], [place] [address] Dec, [facility] [address] [id number] [address] [place] [address], [place] [address] Nov, [facility] [address] [id number] [address] [place] [address] Nov, [facility] [address] [id number] [address] [place] [address] Oct, [facility] [address] [id number] [address] [place] [address], [place] [address] Oct, [facility] [address] [id number] [address] [place] [address], [place] [address] Oct, [facility] [address] [id number] [address] [place] [address], [place] [address] Oct, [facility] [address] [id number] [address] [place] [address], [place] [address] Oct, [facility] [address] [id number] [address] [place] [address], [place] [address] Oct, [facility] [address] [id number] [address] [place] [address], [place] [address] Sep, [facility] [address] [id number] [address] [place] [address], [place] [address] Sep, [facility] [address] [id number] [address] [place] [address], [place] [address] Sep, [facility] [address] [id number] [address] [place] [address], [place] [address] Sep, [facility] [address] [id number] [address] [place] [address], [place] [address] August, [facility] [address] [id number] [address] [place] [address], [place] [address] August, [facility] [address] [id number] [address] [place] [address], [place] [address] August, [facility] [address] [id number] [address] [place] [address], [place] [address] August, [facility] [address] [id number] [address] [place] [address], [place] [address] August, [facility] [address] [id number] [address] [place] [address], [place] [address] Jul, [facility] [address] [id number] [address] [place] [address], [place] [address] 18 Jul, 2012 [facility] [address] [id number] [address] [place] [address], [place] [address] 15 Jul, 2012 [facility] [address] [id number] [address] [place] [address], [place] [address] Jul, [facility] [address] [id number] [address] [place] [address], [place] [address] Jul, [facility] [address] [id number] [address] [place] [address], [place] [address] Jul, [facility] [address] [id number] [address] [place] [address], [place] [address] Jul, [facility] [address] [id number] [address] [place] [address], [place] [address] Jul, [facility] [address] [id number] [address] [place] [address], [place] [address] Jul, [facility] [address] [id number] [address] [place] [address], [place] [address] Jul, [facility] [address] [id number] [id number] Jun, [facility] [address] [id number] [address] [place] [address], [place] [address] Jun, [facility] [address] [id number] [address] [place] [address], [place] [address] Jun, [facility] [address] [id number] [address] [place] [address], [place] [address] Jun, [facility] [address] [id number] [address] [place] [address], [place] [address] Jun, [facility] [address] [id number] [address] [place] [address], [place] [address] May, [facility] [address] [id number] [address] [place] [address], [place] [address] May, [facility] [address] [id number] [address] [place] [address], [place] [address] May, [facility] [address] [id number] [address] [place] [address], [place] [address] Apr, [facility] [address] [id number] [address] [place] [address], [place] [address] Apr, [facility] [address] [id number] [address] [place] [address], [place] [address] Apr, [facility] [address] [id number] [address] [place] [address], [place] [address] Apr, [facility] [address] [id number] [address] [place] [address], [place] [address] Apr, [facility] [address] [id number] [address] [place] [address], [place] [address] Apr, [facility] [address] [id number] [address] [place] [address], [place] [address] Mar, [facility] [address] [id number] [address] [place] [address], [place] [address] Mar, [facility] [address] [id number] [address] [place] [address], [place] [address] Mar, [facility] [address] [id number] [address] [place] [address], [place] [address] Mar, [facility] [address] [id number] [address] [place] [address], [place] [address] Feb, [facility] [address] [id number] [address] [place] [address], [place] [address] Feb, [facility] [address] [id number] [address] [place] [address], [place] [address] Feb, [facility] [address] [id number] [address] [place] [address], [place] [address] Feb, [facility] [address] [id number] [address] [place] [address], [place] [address] Feb, [facility] [address] [id number] [address] [place] [address], [place] [address] Feb, [facility] [address] [id number] [address] [place] [address], [place] [address] Feb, [facility] [address] [id number] [address] [place] [address], [place] [address] Feb, [facility] [address] [id number] [address] [place] [address], [place] [address] Feb, [facility] [address] [id number] [address] [place] [address], [place] [address] Feb, [facility] [address] [id number] [address] [place] [address], [place] [address] Feb, [facility] [address] [id number] [address] [place] [address], [place] [address] Feb, [facility] [address] [id number] [address] [place] [address], [place] [address] Feb, [facility] [address] [id number] [address] [place] [address], [place] [address] Feb, [facility] [address] [id number] [address] [place] [address], [place] [address] Feb, [facility] [address] [id number] [address] [place] [address], [place] [address] Feb, [facility] [address] [id number] [address] [place] [address], [place] [address] Jan, [facility] [address] [id number] [address] [place] [address], [place] [address] Jan, [facility] [address] [id number] [address] [place] [address], [place] [address] Jan, [facility] [address] [id number] [address] [place] [address], [place] [address] Jan, [facility] [address] [id number] [address] [place] [address], [place] [address] 30 Jan, 2012 [facility] [address] [id number] [address] [place] [address], [place] [address] Jan, [facility] [address] [id number] [address] [place] [address], [place] [address] Jan, [facility] [address] [id number] [address] [place] [address], [place] [address] 16 Jan, 2012 [facility] [address] [id number] [address] [place] [address], [place] [address] 16 Jan, 2012 [facility] [address] [id number] [address] [place] [address], [place] [address] Jan, [facility] [address] [id number] [address] [place] [address], [place] [address] 15 Jan, 2012 [facility] [address] [id number] [address] [place] [address], [place] [address] Jan, [facility] [address] [id number] [address] [place] [address], [place] [address] 26 Sep2011 [facility] [address] [id number] [address] [place] [address], [place] [address] 26 Sep2011 [facility] [address] [id number] [address] [place] [address], [place] [address] 24 Sep, 2011 [facility] [address] [id number] [address] [place] [address], [place] [address] 23 Sep, 2011 [facility] [address] [id number] [address] [place] [address], [place] [address] 22 Sep, 2011 [facility] [address] [id number] [address] [place] [address], [place] [address] 21 Sep, 2011 [facility] [address] [id number] [address] [place] [address], [place] [address] 20 Sep, 2011 [facility] [address] [id number] [address] [place] [address], [place] [address] 20 Dec, 2011 [facility] [address] [id number] [address] [place] [address], [place] [address] 07 Dec, 2011 [facility] [address] [id number] [address] [place] [address], [place] [address] 06 Dec, 2011 [facility] [address] [id number] [address] [place] [address], [place] [address] 06 Dec, 2011 [facility] [address] [id number] [address] [place] [address], [place] [address] 05 Dec, 2011 [facility] [address] [id number] [address] [place] [address], [place] [address] 23 Nov, 2011 [facility] [address] [id number] [address] [place] [address], [place] [address] Nov, [facility] [address] [id number] [address] [place] [address], [place] [address] Nov, [facility] [address] [id number] [address] [place] [address], [place] [address] Nov, [facility] [address] [id number] [address] [place] [address], [place] [address] Nov, [facility] [address] [id number] [address] [place] [address], [place] [address] Nov, [facility] [address] [id number] [address] [place] [address], [place] [address] Nov, [facility] [address] [id number] [address] [place] [address], [place] [address] Nov, [facility] [address] [id number] [address] [place] [address], [place] [address] Oct, [facility] [address] [id number] [address] [place] [address], [place] [address] Oct, [facility] [address] [id number] [address] [place] [address], [place] [address] Oct, [facility] [address] [id number] [address] [place] [address], [place] [address] Oct, [facility] [address] [id number] [address] [place] [address], [place] [address] Oct, [facility] [address] [id number] [address] [place] [address], [place] [address] Oct, [facility] [address] [id number] [address] [place] [address], [place] [address] Oct, [facility] [address] [id number] [address] [place] [address], [place] [address] Sep, [facility] [address] [id number] [address] [place] [address], [place] [address] Sep, [facility] [address] [id number] [address] [place] [address], [place] [address] August, [facility] [address] [id number] [address] [place] [address], [place] [address] August, [facility] [address] [id number] [address] [place] [address], [place] [address] August, [facility] [address] [id number] [address] [place] [address], [place] [address] August, [facility] [address] [id number] [address] [place] [address], [place] [address] Jul, [facility] [address] [id number] [address] [place] [address], [place] [address] Jul, [facility] [address] [id number] [address] [place] [address], [place] [address] Jul, [facility] [address] [id number] [address] [place] [address], [place] [address] Jul, [facility] [address] [id number] [address] [place] [address], [place] [address] Jul, [facility] [address] [id number] [address] [place] [address], [place] [address] Jul, [facility] [address] [id number] [address] [place] [address], [place] [address] 03 Jul, 2011 [facility] [address] [id number] [address] [place] [address], [place] [address] Jul, [facility] [address] [id number] [address] [place] [address], [place] [address] Jul, [facility] [address] [id number] [address] [place] [address], [place] [address] 23 Jun, 2011 [facility] [address] [id number] [address] [place] [address], [place] [address] 19 Jun, 2011 [facility] [address] [id number] [address] [place] [address], [place] [address] 15 Jun, 2011 [facility] [address] [id number] [address] [place] [address], [place] [address] 14 Jun, 2011 [facility] [address] [id number] [address] [place] [address], [place] [address] 12 Jun, 2011 [facility] [address] [id number] [address] [place] [address], [place] [address] Jun, [facility] [address] [id number] [address] [place] [address], [place] [address] Jun, [facility] [address] [id number] [address] [place] [address], [place] [address] 25 May, 2011 [facility] [address] [id number] [address] [place] [address], [place] [address] 24 May, 2011 [facility] [address] [id number] [address] [place] [address], [place] [address] 16 May, 2011 [facility] [address] [id number] [address] [place] [address], [place] [address] 16 May, 2011 [facility] [address] [id number] [address] [place] [address], [place] [address] 03 May, 2011 [facility] [address] [id number] [address] [place] [address], [place] [address] 27 Apr, 2011 [facility] [address] [id number] [address] [place] [address], [place] [address] 19 Apr, 2011 [facility] [address] [id number] [address] [place] [address], [place] [address] 13 Apr, 2011 [facility] [address] [id number] [address] [place] [address], [place] [address] Apr, [facility] [address] [id number] [address] [place] [address], [place] [address] 05 Apr, 2011 [facility] [address] [id number] [address] [place] [address], [place] [address] 30 Mar, 2011 [facility] [address] [id number] [address] [place] [address], [place] [address] Mar, [facility] [address] [id number] [address] [place] [address], [place] [address] Mar, [facility] [address] [id number] [address] [place] [address], [place] [address] Mar, [facility] [address] [id number] [address] [place] [address], [place] [address] Mar, [facility] [address] [id number] [address] [place] [address], [place] [address] Mar, [facility] [address] [id number] [address] [place] [address], [place] [address] Mar, [facility] [address] [id number] [address] [place] [address], [place] [address] Feb, [facility] [address] [id number] [address] [place] [address], [place] [address] Feb, [facility] [address] [id number] [address] [place] [address], [place] [address] Feb, [facility] [address] [id number] [address] [place] [address], [place] [address] Feb, [facility] [address] [id number] [address] [place] [address], [place] [address] 31 Jan, 2011 [facility] [address] [id number] [address] [place] [address], [place] [address] 28 Jan, 2011 [facility] [address] [id number] [address] [place] [address], [place] [address] Jan, [facility] [address] [id number] [address] [place] [address], [place] [address] Jan, [facility] [address] [id number] [address] [place] [address], [place] [address] Nov, [facility] [address] [id number] [address] [place] [address], [place] [address] Mar, [facility] [address] [id number] [address] [place] [address], [place] [address] Mar, [facility] [address] [id number] [address] [place] [address], [place] [address] Mar, [facility] [address] [id number] [address] [place] [address], [place] [address] Mar, [facility] [address] [id number] [address] [place] [address], [place] [address] Mar, [facility] [address] [id number] [address] [place] [address], [place] [address] Mar, [facility] [address] [id number] [address] [place] [address], [place] [address] Feb, [facility] [address] [id number] [address] [place] [address], [place] [address] Feb, [facility] [address] [id number] [address] [place] [address], [place] [address] 28 Jan, 2009 [facility] [address] [id number] [address] [place] [address], [place] [address] 14 Jan, 2009 [facility] [address] [id number] [address] [address] 14 Jan, 2009 IMMUNIZATIONS No Known Immunizations [...] History CPAP Noncompliance_ Dr. Madden advises a [employer] driving. Medical History Bacterial meningitis 12/2016 Medical [...] bacterial meningitis December 2016 Hospitalization History [facility] psych for SI 1988 Hospitalization History [facility]-Altered mental status 05/2017 Hospitalization History sepsis, UTI, headache 08/03/2018-
--- OUTSIDE RECORDS SUMMARY | 2019-08-01 10:14 | XMS REPORT ---
Author Author Lola HURTADO [facility] Address [address] [place] [address] Care Team Providers Care Pool Hall Inspector Name Role Phone PARVIN HURTADO Unavailable PROBLEMS Type Condition ICD9-CM Code [id number] Code Onset Dates Condition S tatus SNOMED Code Problem Restless leg G25.81 Active 4428156 8 Problem Insomnia G47.00 Active 293212039 Problem Hypothyroid E03.9 Active 45179011 Problem Palpitations R00.2 Active 6656798 2 Problem Asthma J45.909 Active 256165549 Problem Chronic kidney disease, stage 4 (severe) N18.4 Active 005564341 Problem Depressed F32.9 Active 91885092 Problem Primary osteoarthritis of left knee M17.12 Active 350218281 Problem Generalized anxiety disorder F41.1 A ctive 57657126 Problem Anemia in chronic kidney disease D63.1 Active [id number] Problem Low back pain M54.5 Active 121907 009 Problem Coronary artery disease invo lving cahto coronary artery of cahto heart, angina presence unspecified I25.10 Active 2985358903609 Problem Dysthymic disorder F34.1 Active 7 3061397 Problem Other seasonal allergic rhinitis J30.2 Active 604900819 Problem History of anemia Z86.2 Active 27 1084479 Problem Fibromyalgia M79.7 Active 7301713 05 Problem Hypokalemia E87.6 Active 90505798 Problem Vitamin D deficiency E55.9 Active 25555432 Problem Mixed stress and urge urinary incontinence N39.46 Active 542338325 Problem Chronic kidney disease, unspecified N18.9 Active 412209258 Problem Abnormal chest CT R93.8 Active 44 5201872 Problem Essential (primary) hypertension I10 Active 18159349 Problem Long-term use of high-risk medication Z79.899 Active 622540905 Problem Degenerative tear of medial meniscus of left knee M23.204 Active 420682741 Problem Mood disorder F39 Active 968047 05 Problem Stage 3 chronic kidney disease N18.3 Active 283559110 Problem Perimenopausal vasomotor symptoms N95.1 Active 679451544 Problem History of colon polyps Z86.010 Active 693112639 Problem Other chronic pain G89.29 Active 8 1968639 Problem Functional diarrhea K59.1 Active 95745990 Problem Asthma with acute exacerbation in adult J45.901 Active 686770758 Problem Body mass index (BMI) of 40.0-44.9 in adult Z68.41 Active 337705404 Problem Seasonal allergic rhinitis due to pollen J30.1 Active 01633864 Problem Restless leg syndrome G25.81 Active 54447716 Problem Chronic pain syndrome G89.4 Active [id number] ALLERGIES No Known Allergies ENCOUNTERS Encounter Location Date Diagnosis [facility] [address] [facility] [id number] [address] [place] [phone] Dec, [facility] [address] [facility] [id number] [address] [place] [address] Nov, [facility] [address] [facility] [id number] [address] [place] [phone] Oct, [facility] [address] [facility] [id number] [address] [place] [phone] Oct, [facility] [address] [facility] [id number] [address] [place] [phone] Oct, Generalized anxiety disorder F41.1 and Major depressive disorder, recurrent episode with anxious distress F33.9 [facility] [address] [facility] [id number] [address] [place] [phone] Oct, [facility] [address] [facility] [id number] [address] [place] [address] Oct, Chronic pain syndrome G89.4 [facility] [address] [facility] [id number] [address] [place] [address] Oct, Chronic pain syndrome G89.4 [facility] [address] [facility] [id number] [address] [place] [id number] Oct, UTI symptoms R39.9 ; Acute c ystitis without hematuria N30.00 and Morbid obesity E66.01 [facility] [address] [facility] [id number] [address] [place] [phone] Oct, [facility] [address] [facility] [id number] [address] [place] [phone] Oct, Chronic pain syndrome G89.4 [facility] [address] [facility] [id number] [address] [place] [address] Sep, [facility] [address] [facility] [id number] [address] [place] [address] Sep, Generalized anxiety disorder F41.1 and Major depressive disorder, recurrent episode with anxious distress F33.9 [facility] [facility] [address] [facility] [id number] [address] [place] [id number] 17 Sep, 2018 Chronic kidney disease, stag e 4 (severe) N18.4 [facility] [address] [facility] [id number] [address] [place] [address] Sep, Fibromyalgia M79.7 and Chron ic pain syndrome G89.4 [facility] [address] [facility] [id number] [address] [place] [id number] Sep, [address] [phone] Sep, Chronic pain syndrome G89.4 [facility] [address] [facility] [id number] [address] [place] [id number] Sep, [facility] [address] [facility] [id number] [address] [place] [phone] 05 Sep, 2018 Chronic pain syndrome G89.4 ; Fibromyalgia M79.7 and Morbid obesity E66.01 [facility] [address] [facility] [id number] [address] [place] [address] August, Generalized anxiety disorder F41.1 and Major depressive disorder, recurrent episode with anxious distress F33.9 [facility] [address] [facility] [id number] [address] [place] [address] August, Fibromyalgia M79.7 [facility] [address] [id number] [address] [place] [address] August, Restless leg syndrome G25.81 ; Vitamin D deficiency E55.9 ; Urinary tract infection without hematuria, site unspecified N39.0 ; Pain in right shoulder M25.511 ; Other chronic pain G89.29 ; Biceps tendinitis on right M75.21 and Morbid obesity E66.01 [place] [address] [id number] [address] [place] [address] Jul, Urinary tract infection with out hematuria, site unspecified N39.0 and Morbid obesity E66.01 [place] [address] [id number] [address] [place] [id number] Jul, [place] [address] [id number] [address] [place] [id number] Jul, [facility] [address] [facility] [id number] [address] [place] [address] Jul, Fibromyalgia M79.7 [place] [address] [id number] [address] [place] [address] Jul, Acute pain of right shoulder M25.511 [place] [address] [id number] [address] [place] [address] Jul, Acute pain of right shoulder M25.511 and Morbid obesity E66.01 [place] [address] [facility] [id number] [address] [place] [phone] Jun, [place] [address] [id number] [address] [place] [address] Jun, Generalized anxiety disorder F41.1 and Major depressive disorder, recurrent episode with anxious distress F33.9 [place] [address] [id number] [address] [place] [address] Jun, [place] [address] [facility] [id number] [address] [place] [address] Jun, Fibromyalgia M79.7 [facility] [address] [facility] [id number] [address] [place] [id number] 04 Jun, 2018 Acute pain of right shoulder M25.511 ; Acute pain of right hip M25.551 and Morbid obesity E66.01 [facility] [address] [facility] [id number] [address] [place] [id number] 11 May, 2018 Burning with urination R30.0 ; Vaginal discharge N89.8 ; Chronic kidney disease, stage 4 (severe) N18.4 ; Body mass index (BMI) of 40.0-44.9 in adult Z68.41 and Morbid obesity E66.01 [facility] [address] [facility] [id number] [address] [place] [id number] 07 May, 2018 Fibromyalgia M79.7 [facility] [address] [facility] [id number] [address] [place] [id number] 06 May, 2018 Generalized anxiety disorder F41.1 and Major depressive disorder, recurrent episode with anxious distress F33.9 [facility] [address] [facility] [id number] [address] [place] [address] Apr, [facility] [address] [facility] [id number] [address] [place] [address] Apr, Fibromyalgia M79.7 [facility] [address] [facility] [id number] [address] [place] [id number] Mar, Acute UTI N39.0 and Dysuria R30.0 [facility] [address] [facility] [id number] [address] [place] [address] Mar, Fibromyalgia M79.7 [facility] [address] [facility] [id number] [address] [place] [phone] Feb, [facility] [address] [facility] [id number] [address] [place] [phone] Feb, [facility] [address] [facility] [id number] [address] [place] [address] Feb, [facility] [address] [facility] [id number] [address] [place] [address] Feb, Fibromyalgia M79.7 [facility] [address] [facility] [id number] [address] [place] [id number] 08 Feb, 2018 Complicated UTI (urinary tra ct infection) N39.0 [facility] [address] [facility] [id number] [address] [place] [address] Feb, [facility] [address] [facility] [id number] [address] [place] [id number] Jan, Generalized anxiety disorder F41.1 and Major depressive disorder, recurrent episode with anxious distress F33.9 [facility] [address] [facility] [id number] [address] [place] [address] Jan, Acute conjunctivitis of left eye, unspecified acute conjunctivitis type H10.32 [facility] [address] [facility] [id number] [address] [place] [phone] Jan, [facility] [address] [facility] [id number] [address] [place] [id number] Jan, Acute non-recurrent maxillar y sinusitis J01.00 ; Dysuria R30.0 ; Perimenopausal vasomotor symptoms N95.1 and Fibromyalgia M79.7 [facility] [address] [facility] [id number] [address] [place] [phone] 28 Dec, 2017 Vitamin D deficiency E55.9 [facility] [address] [facility] [id number] [address] [place] [id number] 27 Dec, 2017 Vitamin D deficiency E55.9 [facility] [address] [facility] [id number] [address] [place] [id number] 24 Dec, 2017 Vitamin D deficiency E55.9 [facility] [address] [facility] [id number] [address] [place] [id number] 12 Dec, 2017 [facility] [address] [facility] [id number] [address] [place] [id number] 10 Dec, 2017 Fibromyalgia M79.7 [facility] [address] [place] [id number] [address] [place] [phone] Nov, [facility] [address] [id number] [address] [place] [phone] Nov, [facility] [address] [id number] [address] [place] [phone] Nov, [facility] [address] [id number] [address] [place] [address] Nov, Fibromyalgia M79.7 ; Vision changes H53.9 ; Chest wall pain R07.89 and Chronic pain syndrome G89.4 [facility] [address] [id number] [address] [place] [phone] Nov, [facility] [address] [id number] [address] [place] [phone] Nov, Rash of hands R21 [facility] [address] [id number] [address] [place] [phone] Nov, Generalized anxiety disorder F41.1 and Major depressive disorder, recurrent episode with anxious distress F33.9 [facility] [address] [id number] [address] [place] [id number] Nov, Fibromyalgia M79.7 [facility] [address] [id number] [address] [place] [id number] Nov, Complicated UTI (urinary tra ct infection) N39.0 [facility] [address] [id number] [address] [place] [id number] Oct, [facility] [address] [id number] [address] [place] [id number] Oct, Generalized anxiety disorder F41.1 and Major depressive disorder, recurrent episode with anxious distress F33.9 [facility] [address] [id number] [address] [place] [phone] Oct, [facility] [address] [id number] [address] [place] [phone] Oct, Fibromyalgia M79.7 [facility] [address] [facility] [id number] [address] [place] [id number] Sep, Restless leg syndrome G25.81 and Restless leg G25.81 [facility] [address] [facility] [id number] [address] [place] [id number] Sep, [facility] [address] [place] [id number] [address] [place] [id number] Sep, Seasonal allergic rhinitis d ue to pollen J30.1 ; Screening for breast cancer Z12.31 ; Chest pain at rest R07.9 ; Restless leg syndrome G25.81 ; Essential (primary) hypertension I10 and Depressed F32.9 [place] [address] [facility] [id number] [address] [place] [id number] August, Fibromyalgia M79.7 [facility] [address] [place] [id number] [address] [place] [phone] August, [facility] [address] [place] [id number] [address] [place] [phone] August, [place] [address] [place] [id number] [address] [place] [id number] August, Abnormal chest [address] R93.8 [place] [address] [place] [id number] [address] [place] [address] August, Generalized anxiety disorder F41.1 and Major depressive disorder, recurrent episode with anxious distress F33.9 [facility] [address] [facility] [id number] [address] [place] [phone] August, Abnormal chest [address] R93.8 [place] [address] [facility] [id number] [address] [place] [id number] Jul, [facility] [address] [place] [id number] [address] [place] [id number] Jul, Chronic kidney disease, stag e 4 (severe) N18.4 [facility] [address] [place] [id number] [address] [place] [id number] Jul, [facility] [address] [facility] [id number] [address] [place] [phone] Jul, Restless leg G25.81 ; Mixed stress and urge urinary incontinence N39.46 and Fibromyalgia M79.7 [facility] [address] [facility] [id number] [address] [place] [id number] Jul, Chronic kidney disease, stag e 4 (severe) N18.4 [facility] [address] [facility] [id number] [address] [place] [address] Jun, Orthostatic hypotension I95. 1 ; Chronic kidney disease, stage 4 (severe) N18.4 ; Chest wall discomfort R07.89 and Body mass index (BMI) of 40.0- 44.9 in adult Z68.41 [place] [address] [place] [id number] [address] [place] [address] Jun, [facility] [address] [facility] [id number] [address] [place] [address] Jun, Orthostatic hypotension I95. 1 [facility] [address] [facility] [id number] [address] [place] [id number] Jun, [facility] [address] [facility] [id number] [address] [place] [address] Jun, Orthostatic hypotension I95. 1 ; Dysuria R30.0 and Acute cystitis without hematuria N30.00 [facility] [address] [facility] [id number] [address] [place] [address] Jun, [facility] [address] [facility] [id number] [address] [place] [address] Jun, Chronic kidney disease, stag e 4 (severe) N18.4 [facility] [address] [facility] [id number] [address] [place] [address] Jun, Fibromyalgia M79.7 [facility] [address] [place] [id number] [address] [place] [phone] Jun, [facility] [address] [id number] [address] [place] [address] Jun, [facility] [address] [id number] [address] [place] [address] May, Abnormal chest [address] R93.8 and Stage 3 chronic kidney disease N18.3 [facility] [address] [id number] [address] [place] [address] May, Chronic kidney disease, stag e 4 (severe) N18.4 [facility] [address] [id number] [address] [place] [address] May, Chronic kidney disease, stag e 4 (severe) N18.4 [facility] [address] [id number] [address] [place] [address] May, Abnormal chest [address] R93.8 [facility] [address] [id number] [address] [place] [phone] May, [facility] [address] [facility] [id number] [address] [place] [address] May, [facility] [address] [facility] [id number] [address] [place] [id number] May, Generalized anxiety disorder F41.1 and Major depressive disorder, recurrent episode with anxious distress F33.9 [facility] [address] [facility] [id number] [address] [place] [address] May, Mood disorder F39 [facility] [address] [facility] [id number] [address] [place] [id number] Apr, [facility] [address] [facility] [id number] [address] [place] [address] Apr, Infected skin lesion L08.9 a nd Muscle strain of right shoulder region, initial encounter S46.911A [facility] [address] [facility] [id number] [address] [place] [address] Apr, Generalized anxiety disorder F41.1 and Major depressive disorder, recurrent episode with anxious distress F33.9 [facility] [address] [id number] [address] [place] [id number] Apr, [facility] [address] [facility] [id number] [address] [place] [address] Apr, Recent urinary tract infecti on Z87.440 and Hypothyroid E03.9 [facility] [address] [id number] [address] [place] [address] Apr, Generalized anxiety disorder F41.1 and Major depressive disorder, recurrent episode with anxious distress F33.9 [place] [address] [id number] [address] [place] [address] Apr, Recent urinary tract infecti on Z87.440 [place] [address] [facility] [id number] [address] [place] [address] Mar, [facility] [address] [facility] [id number] [address] [place] [address] Mar, Dysuria R30.0 ; Acute cystit is without hematuria N30.00 and BMI 40.0-44.9, adult Z68.41 [place] [address] [facility] [id number] [address] [place] [id number] Mar, [place] [address] [facility] [id number] [address] [place] [address] Mar, [place] [address] [facility] [id number] [address] [place] [address] Mar, Generalized anxiety disorder F41.1 and Major depressive disorder, recurrent episode with anxious distress F33.9 [place] [address] [id number] [address] [place] [address] Feb, Conjunctivitis, bacterial H1 0.9 [facility] [address] [id number] [address] [place] [id number] Feb, [facility] [address] [facility] [id number] [address] [place] [id number] Feb, Conjunctivitis, bacterial H1 0.9 [facility] [address] [facility] [id number] [address] [place] [id number] Feb, [facility] [address] [facility] [id number] [address] [place] [id number] Feb, Dysuria R30.0 ; Acute cystit is N30.00 and BMI 40.0-44.9, adult Z68.41 [facility] [address] [facility] [id number] [address] [place] [address] Feb, [facility] [address] [place] [id number] [place] [phone] Feb, Generalized anxiety disorder F41.1 and Major depressive disorder, recurrent episode with anxious distress F33.9 [place] [address] [place] [id number] [place] [phone] Feb, Mood disorder F39 and BMI 40 .0-44.9, adult Z68.41 [facility] [address] [place] [id number] [address] [place] [id number] Jan, [facility] [address] [place] [id number] [place] [id number] Jan, [facility] [address] [place] [id number] [place] [phone] Jan, Hypothyroid E03.9 [facility] [address] [place] [id number] [address] [place] [id number] Jan, [facility] [address] [place] [id number] [address] [place] [address] Jan, Chronic kidney disease, unsp ecified N18.9 ; Hypokalemia E87.6 ; Essential (primary) hypertension I10 ; Fibromyalgia M79.7 ; Coronary artery disease involving cahto coronary artery of cahto heart, angina presence unspecified I25.10 ; Hypothyroid E03.9 and Encounter for immunization Z23 [facility] [address] [id number] [address] [place] [id number] 04 Jan, 2017 Hypothyroid E03.9 [facility] [address] [id number] [address] [place] [id number] 02 Jan, 2017 [facility] [address] [id number] [address] [place] [id number] 28 Dec, 2016 Vitamin D deficiency E55.9 [facility] [address] [id number] [address] [place] [phone] 28 Dec, 2016 Primary osteoarthritis of le ft knee M17.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 [facility] [address] [id number] [address] [place] [id number] 19 Dec, 2016 Fibromyalgia M79.7 [facility] [address] [id number] [address] [place] [phone] 18 Dec, 2016 Mood disorder F39 [facility] [address] [id number] [address] [place] [id number] 13 Dec, 2016 [facility] [address] [id number] [address] [place] [id number] 13 Dec, 2016 Generalized anxiety disorder F41.1 and Major depressive disorder, recurrent episode with anxious distress F33.9 [facility] [address] [id number] [address] [place] [id number] 11 Dec, 2016 [facility] [address] [id number] [address] [place] [phone] 08 Dec, 2016 Streptococcal meningitis G00 .2 [facility] [address] [id number] [address] [place] [id number] 07 Dec, 2016 Streptococcal meningitis G00 .2 [facility] [address] [id number] [address] [place] [id number] 07 Dec, 2016 [facility] [address] [id number] [address] [place] [id number] 06 Dec, 2016 Streptococcal meningitis G00 .2 [facility] [address] [facility] [id number] [address] [place] [phone] Dec, [facility] [address] [facility] [id number] [address] [place] [phone] Dec, Major depressive disorder, r ecurrent episode with anxious distress F33.9 [facility] [address] [facility] [id number] [address] [place] [phone] Nov, Fever, unspecified fever cau se R50.9 [facility] [address] [facility] [id number] [address] [place] [phone] Nov, [place] [address] [facility] [id number] [address] [place] [phone] Nov, Hypothyroid E03.9 [facility] [address] [facility] [id number] [address] [place] [phone] Nov, Generalized anxiety disorder F41.1 and Major depressive disorder, recurrent episode with anxious distress F33.9 [facility] [address] [place] [id number] [address] [place] [phone] Nov, [facility] [address] [facility] [id number] [place] [id number] Oct, Dental examination Z01.20 [facility] [address] [place] [id number] [address] [place] [id number] Oct, Generalized anxiety disorder F41.1 and Major depressive disorder, recurrent episode with anxious distress F33.9 [facility] [address] [facility] [id number] [address] [place] [phone] Oct, Chronic kidney disease, stag e 4 (severe) N18.4 [facility] [address] [facility] [id number] [address] [place] [phone] Oct, [facility] [address] [facility] [id number] [address] [place] [phone] Oct, Fibromyalgia M79.7 [facility] [address] [place] [id number] [address] [place] [phone] Oct, [place] [id number] [facility] [id number] [address] [place] [id number] Oct, Generalized anxiety disorder F41.1 ; Major depressive disorder, recurrent episode with anxious distress F33.9 and Bipolar disorder, current episode manic without psychotic features F31.10 [place] [address] [facility] [id number] [address] [place] [phone] Sep, [place] [address] [facility] [id number] [address] [place] [phone] Sep, [place] [address] [facility] [id number] [address] [place] [phone] Sep, Vitamin D deficiency E55.9 [place] [address] [facility] [id number] [address] [place] [phone] Sep, Vitamin D deficiency E55.9 [place] [address] [place] [id number] [address] [place] [id number] Sep, [place] [address] [facility] [id number] [address] [place] [phone] Sep, Chronic kidney disease, stag e 4 (severe) N18.4 ; Hypothyroid E03.9 ; Restless leg G25.81 ; Fibromyalgia M79.7 ; Essential (primary) hypertension I10 ; Vitamin D deficiency E55.9 ; Dyspepsia R10.13 ; Anemia in chronic kidney disease D63.1 ; Chronic kidney disease, unspecified N18.9 ; Coronary artery disease involving cahto coronary artery of cahto heart, angina presence unspecified I25.10 ; Screening breast examination Z12.39 and Low back pain M54.5 [place] [address] [facility] [id number] [address] [place] [phone] August, Generalized anxiety disorder F41.1 and Major depressive disorder, recurrent episode with anxious distress F33.9 [place] [address] [facility] [id number] [address] [place] [id number] August, Generalized anxiety disorder F41.1 and Major depressive disorder, recurrent episode with anxious distress F33.9 [place] [address] [place] [id number] [address] [place] [id number] August, Fibromyalgia M79.7 [facility] [address] [place] [id number] [address] [place] [phone] Jul, Generalized anxiety disorder F41.1 and Major depressive disorder, recurrent episode with anxious distress F33.9 [place] [id number] [place] [id number] Jul, Fibromyalgia M79.7 [place] [address] [phone] Jul, Generalized anxiety disorder F41.1 [place] [address] [address] May, [place] [address] [address] May, Hypothyroid E03.9 [place] [address] [place] [id number] [address] [place] [phone] May, Chronic kidney disease, stag e 4 (severe) N18.4 ; Hypothyroid E03.9 ; Restless leg G25.81 ; Fibromyalgia M79.7 ; Essential (primary) hypertension I10 ; Vitamin D deficiency E55.9 ; Dyspepsia R10.13 ; Acute non-recurrent maxillary sinusitis J01.00 ; Anemia in chronic kidney disease D63.1 ; Chronic kidney disease, unspecified N18.9 and Coronary artery disease involving cahto coronary artery of cahto heart, angina presence unspecified I25.10 [place] [address] [place] [id number] [address] [place] [id number] May, Vitamin D deficiency, unspec ified E55.9 [place] [address] [place] [id number] [address] [place] [id number] May, Generalized anxiety disorder F41.1 and Major depressive disorder, recurrent episode with anxious distress F33.9 [place] [address] [place] [id number] [address] [place] [address] Apr, Pain in right knee M25.561 a nd Pain in left knee M25.562 [facility] [address] [facility] [id number] [address] [place] [id number] Apr, [facility] [address] [facility] [id number] [address] [place] [id number] Apr, [facility] [address] [facility] [id number] [address] [place] [phone] Apr, [facility] [address] [facility] [id number] [address] [place] [phone] Mar, Generalized anxiety disorder F41.1 and Major depressive disorder, recurrent episode with anxious distress F33.9 [place] [address] [place] [id number] [address] [place] [id number] Mar, Generalized anxiety disorder F41.1 and Major depressive disorder, recurrent episode with anxious distress F33.9 [facility] [address] [facility] [id number] [address] [place] [phone] Mar, [facility] [address] [place] [id number] [address] [place] [phone] Mar, [facility] [address] [facility] [id number] [address] [place] [phone] Mar, [place] [address] [place] [id number] [address] [place] [address] Mar, Asthma J45.909 and Fibromyal elvira M79.7 [place] [address] [place] [id number] [address] [place] [phone] Mar, Chronic kidney disease, stag e 4 (severe) N18.4 ; Vitamin D deficiency E55.9 and Essential (primary) hypertension I10 [facility] [address] [facility] [id number] [address] [place] [id number] Feb, [facility] [address] [place] [id number] [address] [place] [phone] Feb, Dysuria R30.0 ; Mixed stress and urge urinary incontinence N39.46 ; Fibromyalgia M79.7 and Chronic kidney disease, stage IV (severe) N18.4 [facility] [address] [place] [id number] [place] [phone] Feb, Chronic kidney disease, stag e 4 (severe) N18.4 [facility] [address] [place] [id number] [address] [place] [phone] Feb, Chronic kidney disease, stag e 4 (severe) N18.4 [facility] [address] [place] [id number] [place] [phone] Feb, [place] [address] [address] Feb, Vitamin D deficiency, unspec ified E55.9 [place] [address] [address] Jan, [facility] [address] [place] [id number] [place] [phone] Jan, [facility] [address] [address] Dec, [place] [address] [place] [id number] [place] [phone] Dec, Chronic kidney disease, stag e 4 (severe) N18.4 [facility] [address] [place] [id number] [address] [place] [phone] Dec, Dysthymic disorder F34.1 and Generalized anxiety disorder F41.1 [place] [address] [phone] Dec, [facility] [address] [place] [id number] [place] [phone] Dec, [facility] [address] [place] [id number] [place] [phone] Dec, Dysthymic disorder F34.1 and Generalized anxiety disorder F41.1 [facility] [address] [address] Dec, Dysuria R30.0 ; Chronic kidn ey disease, stage 4 (severe) N18.4 ; Hypertension I10 ; Dyspepsia R10.13 ; Yeast dermatitis B37.2 ; Palpitations R00.2 ; Hypothyroid E03.9 ; Functional diarrhea K59.1 and Other seasonal allergic rhinitis J30.2 [facility] [address] [phone] Dec, [facility] [address] [address] Nov, Dysuria R30.0 and Stress inc ontinence N39.3 [place] [address] [address] Nov, [place] [address] [address] Nov, [place] [address] [address] Nov, Osteoarthritis of knees, jose ateral M17.0 [place] [address] [address] Nov, Dysthymic disorder F34.1 and Generalized anxiety disorder F41.1 [place] [address] [address] Nov, [place] [address] [address] Nov, [place] [address] [address] Nov, Urgency of urination R39.15 [place] [address] [address] Nov, [place] [address] [place] [id number] [address] [place] [phone] Nov, Chronic kidney disease, stag e 4 (severe) N18.4 [place] [address] [place] [id number] [place] [address] Oct, Hypertension I10 ; Coronary artery disease involving cahto coronary artery of cahto heart, angina presence unspecified I25.10 ; Palpitations R00.2 ; Hypothyroid E03.9 ; Right foot pain M79.671 ; Functional diarrhea K59.1 and Other seasonal allergic rhinitis J30.2 [place] [address] [place] [id number] [address] [place] [phone] Oct, Dysthymic disorder F34.1 and Generalized anxiety disorder F41.1 [place] [address] [place] [id number] [address] [place] [phone] Sep, [place] [address] [address] Sep, [place] [address] [place] [id number] [address] [place] [phone] Sep, [place] [address] [place] [id number] [place] [phone] Sep, [place] [address] [place] [id number] [address] [place] [phone] Sep, [place] [address] [place] [id number] [place] [phone] Sep, Dysthymic disorder F34.1 and Generalized anxiety disorder F41.1 [place] [address] [place] [id number] [address] [place] [id number] 16 Sep, 2015 Asthma with acute exacerbati on in adult J45.901 ; Dysuria R30.0 ; Chronic kidney disease, stage 4 (severe) N18.4 and History of anemia Z86.2 [place] [address] [place] [id number] [address] [place] [phone] Sep, Generalized anxiety disorder F41.1 and Dysthymic disorder F34.1 [place] [id number] [facility] [id number] [address] [place] [address] August, Screening breast examination Z12.39 and Acute recurrent maxillary sinusitis J01.01 [place] [address] [facility] [id number] [address] [place] [address] August, Osteoarthritis of knees, jose ateral M17.0 [place] [address] [facility] [id number] [address] [place] [address] August, Chronic kidney disease, stag e 4 (severe) N18.4 ; Acute non- recurrent maxillary sinusitis J01.00 ; Urinary problem R39.89 ; Bowel habit changes R19.4 ; Functional diarrhea K59.1 and History of colon polyps Z86.010 [place] [address] [place] [id number] [address] [place] [phone] Jul, Dysthymic disorder F34.1 and Generalized anxiety disorder F41.1 [place] [address] [facility] [id number] [address] [place] [phone] Jul, [place] [address] [facility] [id number] [address] [place] [id number] 18 Jul, 2015 Dysthymic disorder F34.1 ; G eneralized anxiety disorder F41.1 and FPC use of drug Z79.899 [place] [address] [place] [id number] [address] [place] [phone] Jul, [place] [address] [facility] [id number] [address] [place] [phone] Jun, [place] [address] [facility] [id number] [address] [place] [phone] Jun, [place] [address] [facility] [id number] [address] [place] [id number] 17 May, 2015 [place] [address] [place] [id number] [address] [place] [phone] May, Dysthymic disorder F34.1 and Generalized anxiety disorder F41.1 [place] [id number] [place] [address] Apr, Kidney disease N28.9 [place] [address] [place] [id number] [address] [place] [phone] Apr, Generalized anxiety disorder F41.1 and Dysthymic disorder F34.1 [place] [address] [address] Apr, Chronic kidney disease, stag e 4 (severe) N18.4 [place] [address] [place] [id number] Apr, Generalized anxiety disorder F41.1 ; Major depression, recurrent F33.9 and Sleep disturbance G47.9 [place] [address] [address] Mar, Generalized anxiety disorder F41.1 and Dysthymic disorder F34.1 [place] [address] [address] Mar, Generalized anxiety disorder F41.1 ; Dysthymic disorder F34.1 and Insomnia G47.00 [place] [address] [address] Mar, [place] [address] [address] Mar, [place] [address] [address] Mar, Osteoarthritis of knees, jose ateral M17.[address] [address] 15 Mar, 2015 Hypertension I10 ; Hypothyro id E03.9 ; Dysthymic disorder F34.1 ; Chronic kidney disease, stage 4 (severe) N18.4 and Nausea & vomiting R11.2 [place] [address] [address] Mar, Generalized anxiety disorder F41.1 ; Dysthymic disorder F34.1 and Insomnia G47.00 [place] [address] [address] Mar, Dehydration E86.0 ; Chronic kidney disease, stage 4 (severe) N18.4 and Nausea & vomiting R11.2 [facility] [address] [address] Mar, Gastroenteritis K52.9 [facility] [address] [address] Mar, [place] [address] [address] Mar, [place] [address] [address] Feb, Dysthymic disorder F34.1 and Generalized anxiety disorder F41.1 [place] [address] [address] Jan, UTI (urinary tract infection ) N39.0 ; Asthma J45.909 ; Coronary artery disease involving cahto coronary artery of cahto heart, angina presence unspecified I25.10 ; Hypertension I10 ; Hypothyroid E03.9 ; Vitamin D deficiency E55.9 ; Insomnia G47.00 ; Palpitations R00.2 ; Depressed F32.9 ; Restless leg G25.81 and Anxiety F41.9 [place] [address] [address] Jan, Dysthymic disorder F34.1 and Generalized anxiety disorder F41.1 [place] [address] [address] Jan, [place] [address] [address] Dec, [place] [address] [address] Dec, Alkalosis 276.3 ; Chronic ki dney disease, Stage IV (severe) 585.4 ; Hyperpotassemia 276.7 ; Secondary hyperparathyroidism, renal 588.81 ; Proteinuria 791.0 ; Unspecified vitamin D deficiency 268.9 ; Anemia in chronic kidney disease 285.21 ; Other and unspecified hyperlipidemia 272.4 ; Hypertension, essential, benign 401.1 and Chronic kidney disease (CKD), stage III (moderate) 585.3 [place] [address] [address] Dec, [place] [address] [address] Dec, Depressive disorder, not els ewhere classified 311 and Generalized anxiety disorder 300.[address] [address] Dec, [address] [address] Dec, [place] [address] [address] Nov, Depressive disorder, not els ewhere classified 311 and Generalized anxiety disorder 300.02 [place] [address] [place] [id number] [place] [address] Nov, Arthritis of both knees 716. [address] [address] Nov, PAF (paroxysmal atrial fibri llation) 427.31 ; CAD (coronary artery disease) 414.00 ; Chest pain 786.50 and Chronic kidney disease (CKD) stage G4/A1, severely decreased glomerular filtration rate (GFR) between 15-29 mL/min/1.73 square meter and albuminuria creatinine ratio less than 30 mg/g 585.[address] [address] Oct, Coronary atherosclerosis of unspecified type of vessel, cahto or graft 414.00 ; Chronic kidney disease, Stage IV (severe) 585.4 ; Hypertension 401.9 and Edema 782.3 [place] [address] [address] Oct, Depressive disorder, not els ewhere classified 311 and Generalized anxiety disorder 300.02 [place] [address] [address] Oct, Depressive disorder, not els ewhere classified 311 and Generalized anxiety disorder 300.02 [facility] [address] [address] Oct, [place] [address] [address] Oct, [place] [address] [address] Sep, [place] [address] [address] Sep, Chronic kidney disease, Stag e IV (severe) 585.4 [place] [address] [address] Sep, [place] [address] [address] Sep, Coronary atherosclerosis of unspecified type of vessel, cahto or graft 414.00 ; Hypertension 401.9 ; Edema 782.3 and Hypothyroidism 244.9 [place] [address] [address] Sep, Coronary atherosclerosis of unspecified type of vessel, cahto or graft 414.00 ; Hypertension 401.9 ; Fibromyalgia 729.1 ; Edema 782.3 ; Hypothyroidism 244.9 and Anemia 285.9 [place] [address] [address] Sep, Anxiety disorder, unspecifie d 300.00 and Depressive disorder, not elsewhere classified 311 [place] [address] [address] Sep, [facility] [address] [id number] [address] [place] [address] August, Generalized anxiety disorder 300.02 [facility] [address] [id number] [address] [place] [address] August, Closed fracture of lateral m alleolus 824.2 [facility] [address] [id number] [address] [place] [address] Jul, [facility] [address] [id number] [address] [place] [address] Jul, [facility] [address] [id number] [address] [place] [address] Jun, [facility] [address] [id number] [address] [place] [address] Jun, [facility] [address] [id number] [address] [place] [phone] Jun, [facility] [address] [id number] [address] [place] [id number] Jun, [facility] [address] [id number] [address] [place] [id number] Jun, [facility] [address] [id number] [address] [place] [id number] Jun, [facility] [address] [id number] [address] [place] [address] May, [facility] [address] [id number] [address] [place] [phone] May, [facility] [address] [id number] [address] [place] [id number] May, [facility] [address] [id number] [address] [place] [phone] May, [facility] [address] [id number] [address] [place] [id number] 16 May, 2014 [facility] [address] [id number] [address] [place] [address], [place] [phone] 16 May, 2014 [facility] [address] [id number] [address] [place] [address], [place] [address] 13 May, 2014 [facility] [address] [id number] [address] [place] [address], [place] [address] 13 May, 2014 [facility] [address] [id number] [address] [place] [address], [place] [address] 10 May, 2014 [facility] [address] [id number] [address] [place] [address], [place] [address] 10 May, 2014 [facility] [address] [id number] [address] [place] [address], [place] [address] Apr, [facility] [address] [id number] [address] [place] [address], [place] [address] Apr, [facility] [address] [id number] [address] [place] [address], [place] [address] Mar, [facility] [address] [id number] [address] [place] [address], [place] [address] Mar, [facility] [address] [id number] [address] [place] [address], [place] [address] Mar, [facility] [address] [id number] [address] [place] [address], [place] [address] 15 Mar, 2014 [facility] [address] [id number] [address] [place] [address], [place] [address] 15 Mar, 2014 [facility] [address] [id number] [address] [place] [address], [place] [address] Mar, [facility] [address] [id number] [address] [place] [address], [place] [address] Mar, [facility] [facility] [address] [id number] [address] [place] [address], [place] [address] Feb, [facility] [address] [id number] [address] [place] [address], [place] [address] Feb, [facility] [address] [id number] [address] [place] [address], [place] [address] Feb, [facility] [address] [id number] [address] [place] [address], [place] [address] Jan, [facility] [address] [id number] [address] [place] [address], [place] [address] Jan, [facility] [address] [id number] [address] [place] [address], [place] [address] Jan, [facility] [address] [id number] [address] [place] [address], [place] [address] Jan, [facility] [address] [id number] [address] [place] [address], [place] [address] Jan, [facility] [address] [id number] [address] [place] [address], [place] [address] Jan, [facility] [address] [id number] [address] [place] [address], [place] [address] Jan, [facility] [address] [id number] [address] [place] [address], [place] [address] Jan, [facility] [address] [id number] [address] [place] [address], [place] [address] Jan, [facility] [address] [id number] [address] [place] [address], [place] [address] Jan, [facility] [address] [id number] [address] [place] [address], [place] [address] Nov, [facility] [address] [id number] [address] [place] [address], [place] [address] Nov, [facility] [address] [id number] [address] [place] [address], [place] [address] Nov, [facility] [address] [id number] [address] [place] [address], [place] [address] Oct, [facility] [address] [id number] [facility] [place] [address] Oct, [facility] [address] [id number] [address] [place] [address], [place] [address] Oct, [facility] [address] [id number] [address] [place] [address], [place] [address] Oct, [facility] [address] [id number] [address] [place] [address], [place] [address] Oct, [facility] [address] [id number] [address] [place] [address], [place] [address] Oct, [facility] [address] [id number] [address] [place] [address], [place] [address] Oct, [facility] [address] [id number] [address] [place] [place] [address], [place] [address] Oct, [facility] [address] [id number] [address] [place] [address], [place] [address] Oct, [facility] [address] [id number] [address] [place] [address], [place] [address] Sep, [facility] [address] [id number] [address] [place] [address], [place] [address] Sep, [facility] [address] [id number] [address] [place] [address], [place] [address] 24 Sep, 2013 [facility] [address] [id number] [address] [place] [address], [place] [address] Sep, [facility] [address] [id number] [address] [place] [address], [place] [address] Sep, [facility] [address] [id number] [address] [place] [address], [place] [address] Sep, [facility] [address] [id number] [address] [place] [address], [place] [address] Sep, [facility] [address] [id number] [address] [place] [address], [place] [address] Sep, [facility] [address] [id number] [address] [place] [place] [address], [place] [address] Sep, [facility] [address] [id number] [address] [place] [address], [place] [address] August, [facility] [address] [id number] [address] [place] [address], [place] [address] August, [facility] [address] [id number] [address] [place] [address], [place] [address] August, [facility] [address] [id number] [address] [place] [address], [place] [address] August, [facility] [address] [id number] [address] [place] [address], [place] [address] August, [facility] [address] [id number] [address] [place] [address], [place] [address] August, [facility] [address] [id number] [address] [place] [address], [place] [address] Jul, [facility] [address] [id number] [address] [place] [address], [place] [address] Jul, [facility] [address] [id number] [address] [place] [place] [address], [place] [address] Jul, [facility] [address] [id number] [address] [place] [place] [address], [place] [address] Jul, [facility] [address] [id number] [address] [place] [place] [address], [place] [address] Jul, [facility] [address] [id number] [address] [place] [place] [address], [place] [address] Jul, [facility] [address] [id number] [address] [place] [place] [address], [place] [address] Jun, [facility] [address] [id number] [address] [place] [place] [address], [place] [address] Jun, [facility] [address] [id number] [address] [place] [address], [place] [address] May, [facility] [address] [id number] [address] [place] [address], [place] [address] May, [facility] [address] [id number] [address] [place] [address], [place] [address] May, [facility] [address] [id number] [address] [place] [address], [place] [address] May, [facility] [address] [id number] [address] [place] [place] [address], [place] [address] Apr, [facility] [address] [id number] [address] [place] [address], [place] [address] Apr, [facility] [address] [id number] [address] [place] [address], [place] [address] 18 Mar, 2013 [facility] [address] [id number] [address] [place] [address], [place] [address] 18 Mar, 2013 [facility] [address] [id number] [address] [place] [address], [place] [address] 17 Mar, 2013 [facility] [address] [id number] [address] [place] [address], [place] [address] 17 Mar, 2013 [facility] [address] [id number] [address] [place] [address], [place] [address] 05 Mar, 2013 [facility] [address] [id number] [address] [place] [address], [place] [address] 05 Mar, 2013 [facility] [address] [id number] [address] [place] [address], [place] [address] 20 Feb, 2013 [facility] [address] [id number] [address] [place] [address], [place] [address] 20 Feb, 2013 [facility] [address] [id number] [address] [place] [address], [place] [address] 14 Feb, 2013 [facility] [address] [id number] [address] [place] [address], [place] [address] 14 Feb, 2013 [facility] [address] [id number] [address] [place] [address], [place] [address] 05 Feb, 2013 [facility] [address] [id number] [address] [place] [place] [address], [place] [address] Feb, [facility] [address] [id number] [address] [place] [place] [address], [place] [address] Jan, [facility] [address] [id number] [address] [place] [place] [address], [place] [address] Jan, [facility] [address] [id number] [address] [place] [place] [address], [place] [address] Jan, [facility] [address] [id number] [address] [place] [place] [address], [place] [address] Jan, [facility] [address] [id number] [address] [place] [address], [place] [address] Jan, [facility] [address] [id number] [address] [place] [address], [place] [address] Jan, [facility] [address] [id number] [address] [place] [address], [place] [address] Dec, [facility] [address] [id number] [address] [place] [place] [address], [place] [address] Dec, [facility] [address] [id number] [address] [place] [place] [address], [place] [address] Nov, [facility] [address] [id number] [address] [place] [place] [address], [place] [address] Nov, [facility] [address] [id number] [address] [place] [place] [address], [place] [address] Oct, [facility] [address] [id number] [address] [place] [place] [address], [place] [address] Oct, [facility] [address] [id number] [address] [place] [address], [place] [address] Oct, [facility] [address] [id number] [address] [place] [address], [place] [address] Oct, [facility] [address] [id number] [address] [place] [address], [place] [address] Oct, [facility] [address] [id number] [address] [place] [place] [address], [place] [address] Oct, [facility] [address] [id number] [address] [place] [address], [place] [address] Sep, [facility] [address] [id number] [address] [place] [place] [address], [place] [address] Sep, [facility] [address] [id number] [address] [place] [address], [place] [address] Sep, [facility] [address] [id number] [address] [place] [address], [place] [address] Sep, [facility] [address] [id number] [address] [place] [place] [address], [place] [address] August, [facility] [address] [id number] [address] [place] [place] [address], [place] [address] August, [facility] [address] [id number] [address] [place] [place] [address], [place] [address] August, [facility] [address] [id number] [address] [place] [address], [place] [address] August, [facility] [address] [id number] [address] [place] [place] [address], [place] [address] August, [facility] [address] [id number] [address] [place] [address], [place] [address] Jul, [facility] [address] [id number] [address] [place] [address], [place] [address] Jul, [facility] [address] [id number] [address] [place] [address], [place] [address] Jul, [facility] [address] [id number] [address] [place] [address], [place] [address] Jul, [facility] [address] [id number] [address] [place] [address], [place] [address] Jul, [facility] [address] [id number] [address] [place] [address], [place] [address] Jul, [facility] [address] [id number] [address] [place] [address], [place] [address] Jul, [facility] [address] [id number] [address] [place] [address] Jul, [facility] [address] [id number] [address] [place] [place] [address], [place] [address] Jul, [facility] [address] [id number] [address] [place] [address], [place] [address] Jul, [facility] [address] [id number] [place] [id number] Jun, [facility] [address] [id number] [address] [place] [address] Jun, [facility] [address] [id number] [address] [place] [place] [address], [place] [address] Jun, [facility] [address] [id number] [address] [place] [place] [address], [place] [address] Jun, [facility] [address] [id number] [address] [place] [address] Jun, [facility] [address] [id number] [address] [place] [address] May, [facility] [address] [id number] [address] [place] [address], [place] [address] May, [facility] [address] [id number] [address] [place] [address], [place] [address] May, [facility] [address] [id number] [address] [place] [address] Apr, [facility] [address] [id number] [address] [place] [address], [place] [address] Apr, [facility] [address] [id number] [address] [place] [address], [place] [address] Apr, [facility] [address] [id number] [address] [place] [address], [place] [address] Apr, [facility] [address] [id number] [address] [place] [address], [place] [address] Apr, [facility] [address] [id number] [address] [place] [address], [place] [address] Apr, [facility] [address] [id number] [address] [place] [address], [place] [address] Mar, [facility] [address] [id number] [address] [place] [address], [place] [address] Mar, [facility] [address] [id number] [address] [place] [address], [place] [address] Mar, [facility] [address] [id number] [address] [place] [address], [place] [address] Mar, [facility] [address] [id number] [address] [place] [address], [place] [address] Feb, [facility] [address] [id number] [address] [place] [address], [place] [address] Feb, [facility] [address] [id number] [address] [place] [address], [place] [address] Feb, [facility] [address] [id number] [address] [place] [address], [place] [address] Feb, [facility] [address] [id number] [address] [place] [address], [place] [address] Feb, [facility] [address] [id number] [address] [place] [address], [place] [address] Feb, [facility] [address] [id number] [address] [place] [address], [place] [address] Feb, [facility] [address] [id number] [address] [place] [address], [place] [address] Feb, [facility] [address] [id number] [address] [place] [address], [place] [address] Feb, [facility] [address] [id number] [address] [place] [address], [place] [address] Feb, [facility] [address] [id number] [address] [place] [address], [place] [address] Feb, [facility] [address] [id number] [address] [place] [address], [place] [address] Feb, [facility] [address] [id number] [address] [place] [address], [place] [address] Feb, [facility] [address] [id number] [address] [place] [address], [place] [address] Feb, [facility] [address] [id number] [address] [place] [address] Feb, [facility] [address] [id number] [address] [place] [address], [place] [address] Feb, [facility] [address] [id number] [address] [place] [address] Jan, [facility] [address] [id number] [address] [place] [address] Jan, [facility] [address] [id number] [address] [place] [address] Jan, [facility] [address] [id number] [address] [place] [address] Jan, [facility] [address] [id number] [address] [place] [address] Jan, [facility] [address] [id number] [address] [place] [address] Jan, [facility] [address] [id number] [address] [place] [address] 25 Jan, 2012 [facility] [address] [id number] [address] [place] [address], [place] [address] 16 Jan, 2012 [facility] [address] [id number] [address] [place] [address], [place] [address] 16 Jan, 2012 [facility] [address] [id number] [address] [place] [address], [place] [address] 15 Jan, 2012 [facility] [address] [id number] [address] [place] [address], [place] [address] 15 Jan, 2012 [facility] [address] [id number] [address] [place] [address], [place] [address] 01 Jan, 2012 [facility] [address] [id number] [address] [place] [address], [place] [address] 26 Sep, 2011 [facility] [address] [id number] [address] [place] [address], [place] [address] 26 Sep, 2011 [facility] [address] [id number] [address] [place] [address], [place] [address] 24 Sep, 2011 [facility] [address] [id number] [address] [place] [address], [place] [address] 23 Sep, 2011 [facility] [address] [id number] [address] [place] [address], [place] [address] 22 Sep, 2011 [facility] [address] [id number] [address] [place] [address], [place] [address] 21 Sep, 2011 [facility] [address] [id number] [address] [place] [address], [place] [address] 20 Sep, 2011 [facility] [address] [id number] [address] [place] [address], [place] [address] 20 Sep, 2011 [facility] [address] [id number] [address] [place] [address], [place] [address] 07 Sep, 2011 [facility] [address] [id number] [address] [place] [address], [place] [address] 06 Sep, 2011 [facility] [address] [id number] [facility] [place] [address] 06 Dec, 2011 [facility] [address] [id number] [address] [place] [address], [place] [address] 05 Dec, 2011 [facility] [address] [id number] [facility] [place] [address] Nov, [facility] [address] [id number] [address] [place] [address], [place] [address] Nov, [facility] [address] [id number] [address] [place] [address], [place] [address] Nov, [facility] [address] [id number] [address] [place] [address], [place] [address] Nov, [facility] [address] [id number] [address] [place] [address], [place] [address] Nov, [facility] [address] [id number] [address] [place] [address], [place] [address] Nov, [facility] [address] [id number] [address] [place] [address], [place] [address] Nov, [facility] [address] [id number] [address] [place] [address], [place] [address] Nov, [facility] [address] [id number] [address] [place] [address], [place] [address] Oct, [facility] [address] [id number] [address] [place] [address], [place] [address] Oct, [facility] [address] [id number] [address] [place] [address], [place] [address] Oct, [facility] [address] [id number] [address] [place] [address], [place] [address] Oct, [facility] [address] [id number] [address] [place] [address], [place] [address] Oct, [facility] [address] [id number] [address] [place] [address], [place] [address] Oct, [facility] [address] [id number] [facility] [place] [address] Oct, [facility] [address] [id number] [address] [place] [address], [place] [address] Sep, [facility] [address] [id number] [address] [place] [address], [place] [address] Sep, [facility] [address] [id number] [address] [place] [address], [place] [address] August, [facility] [address] [id number] [address] [place] [address], [place] [address] August, [facility] [address] [id number] [address] [place] [address], [place] [address] August, [facility] [address] [id number] [address] [place] [address], [place] [address] August, [facility] [address] [id number] [address] [place] [address], [place] [address] Jul, [facility] [address] [id number] [address] [place] [address], [place] [address] Jul, [facility] [address] [id number] [address] [place] [address], [place] [address] Jul, [facility] [address] [id number] [address] [place] [address], [place] [address] Jul, [facility] [address] [id number] [address] [place] [address], [place] [address] Jul, [facility] [address] [id number] [address] [place] [address], [place] [address] Jul, [facility] [address] [id number] [address] [place] [address], [place] [address] Jul, [facility] [address] [id number] [address] [place] [address], [place] [address] Jul, [facility] [address] [id number] [address] [place] [address], [place] [address] 02 Jul, 2011 [facility] [address] [id number] [address] [place] [address], [place] [address] 23 Jun, 2011 [facility] [address] [id number] [address] [place] [address], [place] [address] 19 Jun, 2011 [facility] [address] [id number] [address] [place] [address], [place] [address] 15 Jun, 2011 [facility] [address] [id number] [address] [place] [address], [place] [address] 14 Jun, 2011 [facility] [address] [id number] [address] [place] [address], [place] [address] 12 Jun, 2011 [facility] [address] [id number] [address] [place] [address], [place] [address] 09 Jun, 2011 [facility] [address] [id number] [address] [place] [address], [place] [address] 09 Jun, 2011 [facility] [address] [id number] [address] [place] [address], [place] [address] 25 May, 2011 [facility] [address] [id number] [address] [place] [address], [place] [address] 24 May, 2011 [facility] [facility] [address] [id number] [address] [place] [address], [place] [address] 16 May, 2011 [facility] [address] [id number] [address] [place] [address], [place] [phone] 16 May, 2011 [facility] [address] [id number] [address] [place] [address], [place] [address] 03 May, 2011 [facility] [address] [id number] [address] [place] [address], [place] [address] 27 Apr, 2011 [facility] [address] [id number] [address] [place] [address], [place] [address] 19 Apr, 2011 [facility] [address] [id number] [address] [place] [address], [place] [address] 13 Apr, 2011 [facility] [address] [id number] [address] [place] [address], [place] [address] Apr, [facility] [address] [id number] [address] [place] [address], [place] [address] Apr, [facility] [address] [id number] [address] [place] [address], [place] [address] Mar, [facility] [address] [id number] [address] [place] [address], [place] [address] Mar, [facility] [address] [id number] [address] [place] [address], [place] [address] Mar, [facility] [address] [id number] [address] [place] [address], [place] [address] Mar, [facility] [address] [id number] [address] [place] [address], [place] [address] Mar, [facility] [address] [id number] [address] [place] [address], [place] [address] Mar, [facility] [address] [id number] [address] [place] [address], [place] [address] Mar, [facility] [address] [id number] [address] [place] [phone] Feb, [facility] [address] [id number] [address] [place] [phone] Feb, [facility] [address] [id number] [address] [place] [phone] Feb, [facility] [address] [id number] [address] [place] [address], [place] [address] Feb, [facility] [address] [id number] [address] [place] [address], [place] [address] Jan, [facility] [address] [id number] [address] [place] [phone] Jan, [facility] [address] [id number] [address] [place] [phone] Jan, [facility] [address] [id number] [address] [place] [phone] Jan, [facility] [address] [id number] [address] [place] [phone] Nov, [facility] [address] [id number] [address] [place] [phone] Mar, [facility] [address] [id number] [address] [place] [phone] Mar, [facility] [address] [id number] [address] [place] [phone] Mar, [facility] [address] [id number] [address] [place] [phone] Mar, [facility] [address] [id number] [address] [place] [phone] Mar, [facility] [address] [id number] [address] [place] [phone] Mar, [facility] [address] [id number] [address] [place] [phone] Feb, [facility] [address] [id number] [address] [place] [phone] Feb, [facility] [address] [id number] [address] [place] [phone] Jan, [facility] [address] [id number] [address] [place] [phone] Jan, [facility] [address] [id number] [address] [place] [phone] Jan, IMMUNIZATIONS No Known Immunizations SOCIAL HISTORY Never Assessed REASON FOR VISIT back pain. pt fell 4 days ago backwards. pt hit head on floor and today she c/o headache. c/o nausea. denies emisis.-[facility] PLAN OF CARE Activity Details Follow Up prn Reason: VITAL SIGNS Height 61.5 in 2018-06-17 Weight 230.6 lbs 2018-06-17 Temperature 98.8 degrees Fahrenheit 2018-06-17 Heart Rate 82 bpm 2018-06-17 Respiratory Rate 20 2018-06-17 BMI 42.86 kg/m2 2018-06-17 Blood pressure systolic 118 mmHg 2018-06-17 Blood pressure diastolic 68 mmHg 2018-06-17 MEDICATIONS Medication Instructions Dosage Frequency Start Date End Date Duration S tatus Imitrex 100 MG Orally as directed PRN 1/2 tablets Active Metoprolol Succinate 50 MG Orally Once a day 1 capsule 24h Active Pantoprazole Sodium 40 MG TAKE ONE TABLET BY MOUTH ONCE DAILY 30 Active Voltaren 1 % as directed Active Fish Oil 1200 MG Orally Once a day at hs 1 capsule Active Levocetirizine Dihydrochloride 10 Orally Once a day as directed 24h Active Singulair 10 MG Orally Once a day 1 tablet 24h 30 da y(s) Active Aspirin 325 MG Orally Once a day 1 tablet 24h Active Vitamin D-3 1000 UNIT Orally Once a day 1 tablet 24h Active Zetia 10 MG Orally Once a day 1 tablet 24h A ctive Gemfibrozil 600 mg TAKE ONE TABLET BY MOUTH TWICE DAILY 30 Active Ferrous Sulfate 325 (65 Fe) MG Orally 3 times a day 1 tablet 8h Active Nystatin 566204 UNIT/ML Mouth/Throat Four times a day 4 ml 6h Active Fluticasone Propionate 50 MCG/ACT USE ONE SPRAY IN EAC H NOSTRIL TWICE DAILY Active Flovent Diskus 250 MCG/BLIST Inhalation Twice a day 1 puff 12h Active ProAir HFA 108 (90 Base) MCG/ACT 1-2 puffs Active Ipratropium [place] 0.03 % Nasally Three times a day prn bk inage 1-2 sprays in each nostril as needed Activ e Macrobid 100 MG Orally once a day for 90 days 1 capsule with food Active Voltaren 1 % Transdermal 2 times a day as directed 12h Jun, 6 days Active Cymbalta 60 MG TAKE ONE CAPSULE BY MOUTH ONCE DAILY 30 Active Fiber Complete - Active Lyrica 150 MG Orally 2 times a day 1 capsule 12h 28 days Active Cetirizine HCl 10 MG Orally Once a day 1 tablet 24h Active Nystatin 271151 UNIT/GM Externally Twice a day 1 application to thighs as needed 12h Sep, 5 Active Vitamin D (Ergocalciferol) 58894 UNIT Orally twice weekly 1 capsule Dec, 8 weeks Active Requip 5 MG Orally Once a day 1 tablet 24h 30 A ctive Diflucan 100 mg Orally every 24 hrs 1 tablet May, 5 days Active Vitamin C 250 MG Orally 3 times a day 1 tablet 8h Active Synthroid 150 MCG Orally Once a day TAKE 1 TABLET BY MOUTH ONCE DAILY 24h 30 Active RESULTS Name Result Date Reference Range Xray : Shoulder, Right 2 view (IN HOUSE) 2018-06 Xray : Pelvis 1-2 views (IN HOUSE) 2018-06-17 PROCEDURES Procedure Date Ordered Result Body Site [facility] VISIT ESTABLISHED PATIENT June 17, 2018 X-RAY EXAM OF PELVIS June 17, 2018 X-RAY EXAM OF SHOULDER June 17, 2018 INSTRUCTIONS MEDICATIONS ADMINISTERED No Known Medications [...] History CPAP Noncompliance_ Dr. Madden advises a ELENZA driving. Medical History Bacterial meningitis 12/2016 Medical [...] 09-2015 & 2007 Surgical History Bladder surgery [facility] 03/2016 Surgical History Neurotransmitter placed [...]
--- OUTSIDE RECORDS SUMMARY | 2019-08-01 10:15 | XMS REPORT ---
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 Active 18909304 Problem Chronic kidney disease, stage 4 (severe) N18.4 Active 679690980 Problem Degenerative tear of medial meniscus of left knee M23.204 Active 962811501 Problem Dysthymic disorder F34.1 Active 7 9141951 Problem Bipolar disorder, current episode manic without psychotic features F31.10 Active 263279032 Problem Generalized anxiety disorder F41.1 A ctive 34333689 Problem Restless leg G25.81 Active 7507708 8 Problem Coronary artery disease invo lving [place] coronary artery of [place] heart, angina presence unspecified I25.10 Active 8558782426681 Problem Hypokalemia E87.6 Active 24970238 Problem Other seasonal allergic rhinitis J30.2 Active 132994746 Problem Mixed stress and urge urinary incontinence N39.46 Active 978048498 Problem Fibromyalgia M79.7 Active 2094747 05 Problem Essential (primary) hypertension I10 Active 91437894 Problem Long-term use of high-risk medication Z79.899 Active 590476909 Problem Vitamin D deficiency E55.9 Active 97775960 Problem Anemia in chronic kidney disease D63.1 Active 310159972964534 Problem Low back pain M54.5 Active 359040 009 Problem Chronic kidney disease, unspecified N18.9 Active 662105133 Problem Abnormal chest CT R93.8 Active 44 6134279 Problem Primary osteoarthritis of left knee M17.12 Active 142124481 Problem Mood disorder F39 Active 585472 05 Problem Stage 3 chronic kidney disease N18.3 Active 530923426 Problem Perimenopausal vasomotor symptoms N95.1 Active 836368483 Problem Asthma with acute exacerbation in adult J45.901 Active 028932902 Problem Other chronic pain G89.29 Active 8 7776991 Problem History of colon polyps Z86.010 Active 079683297 Problem History of anemia Z86.2 Active 27 0661501 Problem Body mass index (BMI) of 40.0-44.9 in adult Z68.41 Active 690854517 Problem Seasonal allergic rhinitis due to pollen J30.1 Active 37033956 Problem Restless leg syndrome G25.81 Active 36779362 Problem Chronic pain syndrome G89.4 Active 427338703 ALLERGIES No Information ENCOUNTERS Encounter Location Date Diagnosis [facility] [address] [facility] [id number] [address] [place] [id number] Nov, [facility] [address] [facility] [id number] [address] [place] [id number] Oct, [facility] [address] [facility] [id number] [address] [place] [id number] Oct, [facility] [address] [facility] [id number] [address] [place] [id number] Oct, [facility] [address] [facility] [id number] [address] [place] [address] Oct, Chronic pain syndrome G89.4 [facility] [address] [facility] [id number] [address] [place] [id number] Oct, Chronic pain syndrome G89.4 [facility] [address] [facility] [id number] [address] [place] [id number] Oct, UTI symptoms R39.9 ; Acute c ystitis without hematuria N30.00 and Morbid obesity E66.01 [facility] [address] [facility] [id number] [address] [place] [id number] Oct, [facility] [address] [facility] [id number] [address] [place] [address] Oct, Chronic pain syndrome G89.4 [facility] [address] [facility] [id number] [address] [place] [phone] Sep, [facility] [address] [facility] [id number] [address] [place] [phone] Sep, Generalized anxiety disorder F41.1 and Major depressive disorder, recurrent episode with anxious distress F33.9 [facility] [address] [facility] [id number] [address] [place] [id number] 17 Sep, 2018 Chronic kidney disease, stag e 4 (severe) N18.4 [facility] [address] [facility] [id number] [address] [place] [phone] Sep, Fibromyalgia M79.7 and Chron ic pain syndrome G89.4 [place] [address] [facility] [id number] [address] [place] [phone] Sep, [address] [address] Sep, Chronic pain syndrome G89.4 [place] [address] [facility] [id number] [address] [place] [id number] Sep, [facility] [address] [facility] [id number] [address] [place] [address] Sep, Chronic pain syndrome G89.4 ; Fibromyalgia M79.7 and Morbid obesity E66.01 [facility] [address] [facility] [id number] [address] [place] [address] August, Generalized anxiety disorder F41.1 and Major depressive disorder, recurrent episode with anxious distress F33.9 [place] [address] [facility] [id number] [address] [place] [address] August, Fibromyalgia M79.7 [place] [address] [facility] [id number] [address] [place] [address] August, Restless leg syndrome G25.81 ; Vitamin D deficiency E55.9 ; Urinary tract infection without hematuria, site unspecified N39.0 ; Pain in right shoulder M25.511 ; Other chronic pain G89.29 ; Biceps tendinitis on right M75.21 and Morbid obesity E66.01 [facility] [address] [id number] [address] [place] [id number] Jul, Urinary tract infection with out hematuria, site unspecified N39.0 and Morbid obesity E66.01 [facility] [address] [id number] [address] [place] [address] Jul, [facility] [address] [id number] [address] [place] [address] Jul, [facility] [address] [id number] [address] [place] [address] Jul, Fibromyalgia M79.7 [facility] [address] [id number] [address] [place] [address] Jul, Acute pain of right shoulder M25.511 [facility] [address] [id number] [address] [place] [address] Jul, Acute pain of right shoulder M25.511 and Morbid obesity E66.01 [facility] [address] [id number] [address] [place] [id number] Jun, [facility] [address] [facility] [id number] [address] [place] [id number] Jun, Generalized anxiety disorder F41.1 and Major depressive disorder, recurrent episode with anxious distress F33.9 [facility] [address] [id number] [address] [place] [address] Jun, [facility] [address] [facility] [id number] [address] [place] [address] Jun, Fibromyalgia M79.7 [facility] [address] [id number] [address] [place] [address] Jun, Acute pain of right shoulder M25.511 ; Acute pain of right hip M25.551 and Morbid obesity E66.01 [facility] [address] [id number] [address] [place] [address] May, Burning with urination R30.0 ; Vaginal discharge N89.8 ; Chronic kidney disease, stage 4 (severe) N18.4 ; Body mass index (BMI) of 40.0-44.9 in adult Z68.41 and Morbid obesity E66.01 [facility] [address] [facility] [id number] [address] [place] [id number] 07 May, 2018 Fibromyalgia M79.7 [facility] [address] [facility] [id number] [address] [place] [id number] 06 May, 2018 Generalized anxiety disorder F41.1 and Major depressive disorder, recurrent episode with anxious distress F33.9 [facility] [address] [facility] [id number] [address] [place] [id number] 24 Apr, 2018 [facility] [address] [facility] [id number] [address] [place] [id number] 08 Apr, 2018 Fibromyalgia M79.7 [facility] [address] [facility] [id number] [address] [place] [id number] 14 Mar, 2018 Acute UTI N39.0 and Dysuria R30.0 [facility] [address] [facility] [id number] [address] [place] [id number] 10 Mar, 2018 Fibromyalgia M79.7 [facility] [address] [facility] [id number] [address] [place] [id number] 15 Feb, 2018 [facility] [address] [facility] [id number] [address] [place] [phone] Feb, [facility] [address] [facility] [id number] [address] [place] [id number] Feb, [facility] [address] [facility] [id number] [address] [place] [address] Feb, Fibromyalgia M79.7 [facility] [address] [facility] [id number] [address] [place] [id number] 08 Feb, 2018 Complicated UTI (urinary tra ct infection) N39.0 [facility] [address] [facility] [id number] [address] [place] [id number] Feb, [facility] [address] [facility] [id number] [address] [place] [address] Jan, Generalized anxiety disorder F41.1 and Major depressive disorder, recurrent episode with anxious distress F33.9 [facility] [address] [id number] [address] [place] [address] Jan, Acute conjunctivitis of left eye, unspecified acute conjunctivitis type H10.32 [facility] [address] [facility] [id number] [address] [place] [phone] Jan, [facility] [address] [facility] [id number] [address] [place] [address] Jan, Acute non-recurrent maxillar y sinusitis J01.00 ; Dysuria R30.0 ; Perimenopausal vasomotor symptoms N95.1 and Fibromyalgia M79.7 [facility] [address] [facility] [id number] [address] [place] [phone] Dec, Vitamin D deficiency E55.9 [facility] [address] [facility] [id number] [address] [place] [address] Dec, Vitamin D deficiency E55.9 [facility] [address] [facility] [id number] [address] [place] [id number] 24 Dec, 2017 Vitamin D deficiency E55.9 [facility] [address] [facility] [id number] [address] [place] [address] Dec, [facility] [address] [facility] [id number] [address] [place] [id number] Dec, Fibromyalgia M79.7 [facility] [address] [id number] [address] [place] [id number] Nov, [facility] [address] [facility] [id number] [address] [place] [id number] Nov, [facility] [address] [facility] [id number] [address] [place] [phone] Nov, [facility] [address] [id number] [address] [place] [address] Nov, Fibromyalgia M79.7 ; Vision changes H53.9 ; Chest wall pain R07.89 and Chronic pain syndrome G89.4 [facility] [address] [id number] [address] [place] [address] Nov, [facility] [address] [id number] [address] [place] [phone] Nov, Rash of hands R21 [facility] [address] [id number] [address] [place] [id number] Nov, Generalized anxiety disorder F41.1 and Major depressive disorder, recurrent episode with anxious distress F33.9 [facility] [address] [id number] [address] [place] [id number] Nov, Fibromyalgia M79.7 [facility] [address] [id number] [address] [place] [id number] Nov, Complicated UTI (urinary tra ct infection) N39.0 [facility] [address] [id number] [address] [place] [id number] Oct, [facility] [address] [id number] [address] [place] [id number] Oct, Generalized anxiety disorder F41.1 and Major depressive disorder, recurrent episode with anxious distress F33.9 [facility] [address] [id number] [address] [place] [address] Oct, [facility] [address] [id number] [address] [place] [id number] Oct, Fibromyalgia M79.7 [facility] [address] [id number] [address] [place] [id number] Sep, Restless leg syndrome G25.81 and Restless leg G25.81 [facility] [address] [id number] [address] [place] [phone] Sep, [facility] [id number] [place] [address] Sep, Seasonal allergic rhinitis d ue to pollen J30.1 ; Screening for breast cancer Z12.31 ; Chest pain at rest R07.9 ; Restless leg syndrome G25.81 ; Essential (primary) hypertension I10 and Depressed F32.9 [facility] [id number] [place] [phone] August, Fibromyalgia M79.7 [facility] [address] [place] [id number] [place] [phone] August, [facility] [address] [place] [id number] [place] [phone] August, [facility] [address] [place] [id number] [place] [address] August, Abnormal chest CT R93.8 [place] [address] [address] August, Generalized anxiety disorder F41.1 and Major depressive disorder, recurrent episode with anxious distress F33.9 [facility] [address] [place] [id number] [address] [place] [address] August, Abnormal chest CT R93.8 [facility] [address] [place] [id number] [place] [address] Jul, [place] [address] [address] Jul, Chronic kidney disease, stag e 4 (severe) N18.4 [facility] [address] [place] [id number] [address] [place] [address] Jul, [facility] [address] [place] [id number] [place] [address] Jul, Restless leg G25.81 ; Mixed stress and urge urinary incontinence N39.46 and Fibromyalgia M79.7 [facility] [address] [place] [id number] [address] [place] [address] Jul, Chronic kidney disease, stag e 4 (severe) N18.4 [facility] [address] [facility] [id number] [address] [place] [id number] Jun, Orthostatic hypotension I95. 1 ; Chronic kidney disease, stage 4 (severe) N18.4 ; Chest wall discomfort R07.89 and Body mass index (BMI) of 40.0- 44.9 in adult Z68.41 [facility] [address] [facility] [id number] [address] [place] [id number] Jun, [facility] [address] [facility] [id number] [address] [place] [address] Jun, Orthostatic hypotension I95. 1 [facility] [address] [place] [id number] [address] [place] [id number] Jun, [facility] [address] [facility] [id number] [address] [place] [address] Jun, Orthostatic hypotension I95. 1 ; Dysuria R30.0 and Acute cystitis without hematuria N30.00 [facility] [address] [facility] [id number] [address] [place] [address] Jun, [facility] [address] [place] [id number] [address] [place] [address] Jun, Chronic kidney disease, stag e 4 (severe) N18.4 [facility] [address] [place] [id number] [address] [place] [phone] Jun, Fibromyalgia M79.7 [facility] [address] [facility] [id number] [address] [place] [address] Jun, [facility] [address] [place] [id number] [address] [place] [address] Jun, [facility] [address] [place] [id number] [address] [place] [address] May, Abnormal chest CT R93.8 and Stage 3 chronic kidney disease N18.3 [facility] [address] [place] [id number] [address] [place] [phone] May, Chronic kidney disease, stag e 4 (severe) N18.4 [facility] [address] [id number] [address] [place] [address] May, Chronic kidney disease, stag e 4 (severe) N18.4 [facility] [address] [id number] [address] [place] [address] May, Abnormal chest [address] R93.8 [facility] [address] [id number] [address] [place] [phone] May, [facility] [address] [id number] [address] [place] [address] May, [facility] [address] [facility] [id number] [address] [place] [address] May, Generalized anxiety disorder F41.1 and Major depressive disorder, recurrent episode with anxious distress F33.9 [facility] [address] [id number] [address] [place] [address] May, Mood disorder F39 [facility] [address] [id number] [address] [place] [address] Apr, [facility] [address] [id number] [address] [place] [address] Apr, Infected skin lesion L08.9 a nd Muscle strain of right shoulder region, initial encounter S46.911A [facility] [address] [id number] [address] [place] [phone] Apr, Generalized anxiety disorder F41.1 and Major depressive disorder, recurrent episode with anxious distress F33.9 [facility] [address] [id number] [address] [place] [phone] Apr, [facility] [address] [facility] [id number] [address] [place] [address] Apr, Recent urinary tract infecti on Z87.440 and Hypothyroid E03.9 [facility] [address] [id number] [address] [place] [address] Apr, Generalized anxiety disorder F41.1 and Major depressive disorder, recurrent episode with anxious distress F33.9 [facility] [address] [id number] [address] [place] [address] Apr, Recent urinary tract infecti on Z87.440 [facility] [address] [id number] [address] [place] [phone] Mar, [facility] [address] [id number] [address] [place] [phone] Mar, Dysuria R30.0 ; Acute cystit is without hematuria N30.00 and BMI 40.0-44.9, adult Z68.41 [facility] [address] [facility] [id number] [address] [place] [address] Mar, [facility] [address] [id number] [address] [place] [address] Mar, [facility] [address] [id number] [address] [place] [phone] Mar, Generalized anxiety disorder F41.1 and Major depressive disorder, recurrent episode with anxious distress F33.9 [facility] [address] [id number] [address] [place] [id number] 29 Feb, 2017 Conjunctivitis, bacterial H1 0.9 [facility] [address] [id number] [address] [place] [id number] 27 Feb, 2017 [facility] [address] [id number] [address] [place] [id number] Feb, Conjunctivitis, bacterial H1 0.9 [facility] [address] [facility] [id number] [address] [place] [id number] 15 Feb, 2017 [facility] [address] [facility] [id number] [address] [place] [phone] 10 Feb, 2017 Dysuria R30.0 ; Acute cystit is N30.00 and BMI 40.0-44.9, adult Z68.41 [place] [address] [address] Feb, [place] [address] [place] [id number] [place] [address] Feb, Generalized anxiety disorder F41.1 and Major depressive disorder, recurrent episode with anxious distress F33.9 [place] [address] [place] [id number] [place] [id number] Feb, Mood disorder F39 and BMI 40 .0-44.9, adult Z68.41 [place] [address] [address] Jan, [place] [address] [address] Jan, [place] [address] [address] Jan, Hypothyroid E03.9 [place] [address] [address] Jan, [place] [address] [address] Jan, Chronic kidney disease, unsp ecified N18.9 ; Hypokalemia E87.6 ; Essential (primary) hypertension I10 ; Fibromyalgia M79.7 ; Coronary artery disease involving [place] coronary artery of [place] heart, angina presence unspecified I25.10 ; Hypothyroid E03.9 and Encounter for immunization Z23 [place] [address] [address] Jan, Hypothyroid E03.9 [place] [address] [place] [id number] [place] [address] Jan, [place] [address] [place] [id number] [place] [address] Dec, Vitamin D deficiency E55.9 [facility] [address] [id number] [address] [place] [id number] 28 Dec, 2017 Primary osteoarthritis of le ft knee M17.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 [facility] [address] [id number] [address] [place] [id number] 19 Dec, 2016 Fibromyalgia M79.7 [facility] [address] [id number] [address] [place] [id number] 18 Dec, 2016 Mood disorder F39 [facility] [address] [id number] [address] [place] [id number] 13 Dec, 2016 [place] [address] [id number] [address] [place] [id number] 13 Dec, 2016 Generalized anxiety disorder F41.1 and Major depressive disorder, recurrent episode with anxious distress F33.9 [facility] [address] [id number] [address] [place] [id number] 11 Dec, 2016 [place] [id number] [id number] [address] [place] [id number] 08 Dec, 2016 Streptococcal meningitis G00 .2 [place] [id number] [id number] [address] [place] [id number] 07 Dec, 2016 Streptococcal meningitis G00 .2 [facility] [facility] [address] [id number] [address] [place] [address] 07 Dec, 2016 [facility] [address] [id number] [address] [place] [id number] 06 Dec, 2016 Streptococcal meningitis G00 .2 [facility] [address] [id number] [address] [place] [id number] 06 Dec, 2016 [facility] [address] [facility] [id number] [address] [place] [id number] 06 Dec, 2016 Major depressive disorder, r ecurrent episode with anxious distress F33.9 [facility] [address] [id number] [address] [place] [id number] Nov, Fever, unspecified fever cau se R50.9 [facility] [address] [id number] [address] [place] [id number] Nov, [facility] [address] [facility] [id number] [address] [place] [id number] Nov, Hypothyroid E03.9 [facility] [address] [id number] [address] [place] [id number] Nov, Generalized anxiety disorder F41.1 and Major depressive disorder, recurrent episode with anxious distress F33.9 [facility] [address] [id number] [address] [place] [phone] Nov, [facility] [address] [id number] [address] [place] [id number] Oct, Dental examination Z01.20 [facility] [address] [facility] [id number] [address] [place] [id number] Oct, Generalized anxiety disorder F41.1 and Major depressive disorder, recurrent episode with anxious distress F33.9 [facility] [address] [facility] [id number] [address] [place] [id number] Oct, Chronic kidney disease, stag e 4 (severe) N18.4 [facility] [address] [facility] [id number] [address] [place] [id number] Oct, [facility] [address] [facility] [id number] [address] [place] [id number] Oct, Fibromyalgia M79.7 [facility] [address] [id number] [address] [place] [id number] Oct, [facility] [address] [facility] [id number] [address] [place] [address] Oct, Generalized anxiety disorder F41.1 ; Major depressive disorder, recurrent episode with anxious distress F33.9 and Bipolar disorder, current episode manic without psychotic features F31.10 [facility] [address] [facility] [id number] [address] [place] [id number] Sep, [facility] [address] [facility] [id number] [address] [place] [address] Sep, [facility] [address] [facility] [id number] [address] [place] [id number] 15 Sep, 2016 Vitamin D deficiency E55.9 [facility] [address] [facility] [id number] [address] [place] [id number] 14 Sep, 2016 Vitamin D deficiency E55.9 [facility] [address] [facility] [id number] [address] [place] [id number] Sep, [facility] [address] [place] [id number] [address] [place] [id number] 07 Sep, 2016 Chronic kidney disease, stag e 4 (severe) N18.4 ; Hypothyroid E03.9 ; Restless leg G25.81 ; Fibromyalgia M79.7 ; Essential (primary) hypertension I10 ; Vitamin D deficiency E55.9 ; Dyspepsia R10.13 ; Anemia in chronic kidney disease D63.1 ; Chronic kidney disease, unspecified N18.9 ; Coronary artery disease involving [place] coronary artery of [place] heart, angina presence unspecified I25.10 ; Screening breast examination Z12.39 and Low back pain M54.5 [facility] [address] [facility] [id number] [address] [place] [id number] August, Generalized anxiety disorder F41.1 and Major depressive disorder, recurrent episode with anxious distress F33.9 [facility] [place] [address] [place] [id number] [address] [place] [id number] August, Generalized anxiety disorder F41.1 and Major depressive disorder, recurrent episode with anxious distress F33.9 [place] [address] [facility] [id number] [address] [place] [address] August, Fibromyalgia M79.7 [facility] [address] [facility] [id number] [address] [place] [id number] 07 Jul, 2016 Generalized anxiety disorder F41.1 and Major depressive disorder, recurrent episode with anxious distress F33.9 [place] [address] [place] [id number] [address] [place] [address] Jul, Fibromyalgia M79.7 [facility] [address] [address] Jul, Generalized anxiety disorder F41.1 [place] [address] [id number] May, [place] [address] [address] May, Hypothyroid E03.[address] [address] May, Chronic kidney disease, stag e 4 (severe) N18.4 ; Hypothyroid E03.9 ; Restless leg G25.81 ; Fibromyalgia M79.7 ; Essential (primary) hypertension I10 ; Vitamin D deficiency E55.9 ; Dyspepsia R10.13 ; Acute non-recurrent maxillary sinusitis J01.00 ; Anemia in chronic kidney disease D63.1 ; Chronic kidney disease, unspecified N18.9 and Coronary artery disease involving [place] coronary artery of [place] heart, angina presence unspecified I25.10 [place] [address] [address] May, Vitamin D deficiency, unspec ified E55.[address] [address] May, Generalized anxiety disorder F41.1 and Major depressive disorder, recurrent episode with anxious distress F33.[address] [address] Apr, Pain in right knee M25.561 a nd Pain in left knee M25.562 [place] [address] [address] Apr, [place] [address] [address] Apr, [facility] [address] [facility] [id number] [address] [place] [phone] Apr, [facility] [address] [facility] [id number] [address] [place] [address] Mar, Generalized anxiety disorder F41.1 and Major depressive disorder, recurrent episode with anxious distress F33.9 [facility] [address] [place] [id number] [address] [place] [address] Mar, Generalized anxiety disorder F41.1 and Major depressive disorder, recurrent episode with anxious distress F33.9 [facility] [address] [facility] [id number] [address] [place] [id number] Mar, [facility] [address] [place] [id number] [address] [place] [phone] Mar, [place] [address] [place] [id number] [address] [place] [address] Mar, [facility] [address] [place] [id number] [address] [place] [address] Mar, Asthma J45.909 and Fibromyal elvira M79.7 [facility] [address] [place] [id number] [address] [place] [address] Mar, Chronic kidney disease, stag e 4 (severe) N18.4 ; Vitamin D deficiency E55.9 and Essential (primary) hypertension I10 [place] [id number] [facility] [id number] [address] [place] [id number] Feb, [facility] [address] [place] [id number] [address] [place] [address] Feb, Dysuria R30.0 ; Mixed stress and urge urinary incontinence N39.46 ; Fibromyalgia M79.7 and Chronic kidney disease, stage IV (severe) N18.4 [facility] [address] [place] [id number] [address] [place] [address] Feb, Chronic kidney disease, stag e 4 (severe) N18.4 [facility] [address] [facility] [id number] [address] [place] [address] Feb, Chronic kidney disease, stag e 4 (severe) N18.4 [facility] [address] [facility] [id number] [address] [place] [address] Feb, [facility] [address] [facility] [id number] [address] [place] [address] Feb, Vitamin D deficiency, unspec ified E55.9 [facility] [address] [facility] [id number] [address] [place] [address] Jan, [place] [address] [facility] [id number] [address] [place] [address] Jan, [place] [address] [facility] [id number] [address] [place] [address] Dec, [place] [address] [place] [id number] [address] [place] [address] Dec, Chronic kidney disease, stag e 4 (severe) N18.4 [place] [address] [facility] [id number] [address] [place] [address] Dec, Dysthymic disorder F34.1 and Generalized anxiety disorder F41.1 [place] [address] [place] [id number] [address] [place] [address] Dec, [place] [address] [place] [id number] [address] [place] [address] Dec, [place] [address] [place] [id number] [address] [place] [address] Dec, Dysthymic disorder F34.1 and Generalized anxiety disorder F41.1 [place] [address] [place] [id number] [address] [place] [address] Dec, Dysuria R30.0 ; Chronic kidn ey disease, stage 4 (severe) N18.4 ; Hypertension I10 ; Dyspepsia R10.13 ; Yeast dermatitis B37.2 ; Palpitations R00.2 ; Hypothyroid E03.9 ; Functional diarrhea K59.1 and Other seasonal allergic rhinitis J30.2 [facility] [address] [address] Dec, [facility] [address] [place] [id number] [place] [address] Nov, Dysuria R30.0 and Stress inc ontinence N39.3 [facility] [address] [address] Nov, [place] [address] [address] Nov, [place] [address] [address] Nov, Osteoarthritis of knees, jose ateral M17.0 [place] [address] [address] Nov, Dysthymic disorder F34.1 and Generalized anxiety disorder F41.1 [place] [address] [address] Nov, [place] [address] [address] Nov, [place] [address] [address] Nov, Urgency of urination R39.15 [place] [address] [address] Nov, [place] [address] [address] Nov, Chronic kidney disease, stag e 4 (severe) N18.4 [place] [address] [address] Oct, Hypertension I10 ; Coronary artery disease involving [place] coronary artery of [place] heart, angina presence unspecified I25.10 ; Palpitations R00.2 ; Hypothyroid E03.9 ; Right foot pain M79.671 ; Functional diarrhea K59.1 and Other seasonal allergic rhinitis J30.2 [place] [address] [address] Oct, Dysthymic disorder F34.1 and Generalized anxiety disorder F41.1 [place] [id number] [place] [address] Sep, [place] [address] [address] Sep, [place] [address] [address] Sep, [place] [address] [place] [id number] [place] [address] Sep, [place] [address] [address] Sep, [place] [address] [address] Sep, Dysthymic disorder F34.1 and Generalized anxiety disorder F41.1 [place] [address] [address] Sep, Asthma with acute exacerbati on in adult J45.901 ; Dysuria R30.0 ; Chronic kidney disease, stage 4 (severe) N18.4 and History of anemia Z86.2 [place] [address] [address] 2015 Generalized anxiety disorder F41.1 and Dysthymic disorder F34.1 [place] [address] [address] August, Screening breast examination Z12.39 and Acute recurrent maxillary sinusitis J01.[address] [address] August, Osteoarthritis of knees, jose ateral M17.0 [place] [id number] [facility] [id number] [address] [place] [address] August, Chronic kidney disease, stag e 4 (severe) N18.4 ; Acute non- recurrent maxillary sinusitis J01.00 ; Urinary problem R39.89 ; Bowel habit changes R19.4 ; Functional diarrhea K59.1 and History of colon polyps Z86.010 [place] [address] [facility] [id number] [address] [place] [address] Jul, Dysthymic disorder F34.1 and Generalized anxiety disorder F41.1 [place] [address] [facility] [id number] [address] [place] [address] Jul, [place] [address] [place] [id number] [place] [address] Jul, Dysthymic disorder F34.1 ; G eneralized anxiety disorder F41.1 and FPC use of drug Z79.899 [place] [address] [facility] [id number] [address] [place] [address] Jul, [place] [address] [facility] [id number] [address] [place] [address] Jun, [place] [address] [facility] [id number] [address] [place] [address] Jun, [place] [address] [place] [id number] [address] [place] [address] May, [place] [address] [facility] [id number] [address] [place] [address] May, Dysthymic disorder F34.1 and Generalized anxiety disorder F41.1 [place] [address] [facility] [id number] [address] [place] [address] Apr, Kidney disease N28.9 [place] [address] [facility] [id number] [address] [place] [address] Apr, Generalized anxiety disorder F41.1 and Dysthymic disorder F34.1 [place] [address] [place] [id number] [address] [place] [address] Apr, Chronic kidney disease, stag e 4 (severe) N18.4 [place] [address] [place] [id number] [address] [place] [address] Apr, Generalized anxiety disorder F41.1 ; Major depression, recurrent F33.9 and Sleep disturbance G47.9 [place] [address] [place] [id number] [address] [place] [address] Mar, Generalized anxiety disorder F41.1 and Dysthymic disorder F34.1 [place] [address] [place] [id number] [place] [address] Mar, Generalized anxiety disorder F41.1 ; Dysthymic disorder F34.1 and Insomnia G47.00 [place] [address] [address] Mar, [place] [address] [place] [id number] [address] [place] [address] Mar, [place] [address] [address] Mar, Osteoarthritis of knees, jose ateral M17.0 [place] [address] [place] [id number] [address] [place] [address] Mar, Hypertension I10 ; Hypothyro id E03.9 ; Dysthymic disorder F34.1 ; Chronic kidney disease, stage 4 (severe) N18.4 and Nausea & vomiting R11.2 [place] [address] [place] [id number] [address] [place] [address] Mar, Generalized anxiety disorder F41.1 ; Dysthymic disorder F34.1 and Insomnia G47.00 [place] [address] [place] [id number] [address] [place] [address] Mar, Dehydration E86.0 ; Chronic kidney disease, stage 4 (severe) N18.4 and Nausea & vomiting R11.2 [facility] [address] [place] [id number] [address] [place] [address] Mar, Gastroenteritis K52.9 [facility] [address] [place] [id number] [address] [place] [address] Mar, [facility] [address] [address] Mar, [facility] [address] [address] Feb, Dysthymic disorder F34.1 and Generalized anxiety disorder F41.1 [place] [address] [address] Jan, UTI (urinary tract infection ) N39.0 ; Asthma J45.909 ; Coronary artery disease involving [place] coronary artery of [place] heart, angina presence unspecified I25.10 ; Hypertension I10 ; Hypothyroid E03.9 ; Vitamin D deficiency E55.9 ; Insomnia G47.00 ; Palpitations R00.2 ; Depressed F32.9 ; Restless leg G25.81 and Anxiety F41.9 [place] [address] [address] Jan, Dysthymic disorder F34.1 and Generalized anxiety disorder F41.1 [place] [address] [address] Jan, [place] [address] [address] Dec, [place] [address] [place] [id number] [address] [place] [address] Dec, Alkalosis 276.3 ; Chronic ki dney disease, Stage IV (severe) 585.4 ; Hyperpotassemia 276.7 ; Secondary hyperparathyroidism, renal 588.81 ; Proteinuria 791.0 ; Unspecified vitamin D deficiency 268.9 ; Anemia in chronic kidney disease 285.21 ; Other and unspecified hyperlipidemia 272.4 ; Hypertension, essential, benign 401.1 and Chronic kidney disease (CKD), stage III (moderate) 585.3 [facility] [address] [address] 16 Dec, 2014 [facility] [address] [address] 16 Dec, 2014 Depressive disorder, not els ewhere classified 311 and Generalized anxiety disorder 300.02 [place] [address] [address] Dec, [place] [address] [address] Dec, [place] [address] [address] Nov, Depressive disorder, not els ewhere classified 311 and Generalized anxiety disorder 300.02 [place] [address] [address] Nov, Arthritis of both knees 716. 96 [place] [address] [address] Nov, PAF (paroxysmal atrial fibri llation) 427.31 ; CAD (coronary artery disease) 414.00 ; Chest pain 786.50 and Chronic kidney disease (CKD) stage G4/A1, severely decreased glomerular filtration rate (GFR) between 15-29 mL/min/1.73 square meter and albuminuria creatinine ratio less than 30 mg/g 585.4 [place] [address] [address] Oct, Coronary atherosclerosis of unspecified type of vessel, [place] or graft 414.00 ; Chronic kidney disease, Stage IV (severe) 585.4 ; Hypertension 401.9 and Edema 782.3 [place] [address] [address] Oct, Depressive disorder, not els ewhere classified 311 and Generalized anxiety disorder 300.02 [place] [address] [address] Oct, Depressive disorder, not els ewhere classified 311 and Generalized anxiety disorder 300.02 [facility] [address] [address] Oct, [facility] [address] [address] Oct, [facility] [address] [address] Sep, [facility] [address] [address] Sep, Chronic kidney disease, Stag e IV (severe) 585.4 [place] [address] [address] Sep, [facility] [address] [address] Sep, Coronary atherosclerosis of unspecified type of vessel, [place] or graft 414.00 ; Hypertension 401.9 ; Edema 782.3 and Hypothyroidism 244.9 [facility] [address] [address] Sep, Coronary atherosclerosis of unspecified type of vessel, [place] or graft 414.00 ; Hypertension 401.9 ; Fibromyalgia 729.1 ; Edema 782.3 ; Hypothyroidism 244.9 and Anemia 285.9 [facility] [address] [address] Sep, Anxiety disorder, unspecifie d 300.00 and Depressive disorder, not elsewhere classified 311 [facility] [address] [address] Sep, [facility] [address] [address] August, Generalized anxiety disorder 300.02 [facility] [address] [address] August, Closed fracture of lateral m alleolus 824.2 [facility] [address] [id number] [address] [place] [address], [place] [address] 14 Jul, 2014 [facility] [address] [id number] [address] [place] [address], [place] [address] Jul, [facility] [address] [id number] [address] [place] [address], [place] [address] Jun, [facility] [address] [id number] [address] [place] [address], [place] [address] Jun, [facility] [address] [id number] [address] [place] [address], [place] [address] Jun, [facility] [address] [id number] [address] [place] [address], [place] [address] Jun, [facility] [address] [id number] [address] [place] [address], [place] [address] Jun, [facility] [address] [id number] [address] [place] [address], [place] [address] Jun, [facility] [address] [id number] [address] [place] [address], [place] [address] May, [facility] [address] [id number] [address] [place] [address], [place] [address] 19 May, 2014 [facility] [address] [id number] [address] [place] [address], [place] [address] 18 May, 2014 [facility] [address] [id number] [address] [place] [address] 18 May, 2014 [facility] [address] [id number] [address] [place] [address], [place] [address] 16 May, 2014 [facility] [address] [id number] [address] [place] [address], [place] [address] 16 May, 2014 [facility] [address] [id number] [address] [place] [address], [place] [address] 13 May, 2014 [facility] [address] [id number] [address] [place] [address], [place] [address] 13 May, 2014 [facility] [address] [id number] [address] [place] [address], [place] [address] 10 May, 2014 [facility] [address] [id number] [address] [place] [address], [place] [address] 10 May, 2014 [facility] [address] [id number] [address] [place] [address], [place] [address] Apr, [facility] [address] [id number] [address] [place] [address], [place] [address] Apr, [facility] [address] [id number] [address] [place] [address], [place] [id number] Mar, [facility] [address] [id number] [address] [place] [address], [place] [id number] Mar, [facility] [address] [id number] [address] [place] [address], [place] [id number] Mar, [facility] [address] [id number] [address] [place] [address], [place] [id number] 15 Mar, 2014 [facility] [address] [id number] [address] [place] [address], [place] [id number] Mar, [facility] [address] [id number] [address] [place] [address], [place] [id number] 15 Mar, 2014 [facility] [address] [id number] [address] [place] [address], [place] [id number] Mar, [facility] [address] [id number] [address] [place] [address], [place] [id number] 24 Feb, 2014 [facility] [address] [id number] [address] [place] [address], [place] [id number] 24 Feb, 2014 [facility] [address] [id number] [address] [place] [address], [place] [id number] 17 Feb, 2014 [facility] [address] [id number] [address] [place] [address], [place] [id number] Jan, [facility] [address] [id number] [address] [place] [address], [place] [id number] Jan, [facility] [address] [id number] [address] [place] [address], [place] [id number] Jan, [facility] [address] [id number] [address] [place] [address], [place] [address] Jan, [facility] [address] [id number] [address] [place] [address], [place] [address] Jan, [facility] [address] [id number] [address] [place] [address], [place] [address] Jan, [facility] [address] [id number] [address] [place] [address], [place] [address] Jan, [facility] [address] [id number] [address] [place] [address], [place] [address] Jan, [facility] [address] [id number] [address] [place] [address], [place] [address] Jan, [facility] [address] [id number] [address] [place] [address], [place] [address] Jan, [facility] [address] [id number] [address] [place] [address], [place] [address] Nov, [facility] [address] [id number] [address] [place] [address], [place] [address] Nov, [facility] [address] [id number] [address] [place] [address], [place] [address] Nov, [facility] [address] [id number] [address] [place] [address], [place] [address] Oct, [facility] [address] [id number] [address] [place] [address], [place] [address] Oct, [facility] [address] [id number] [address] [place] [address], [place] [address] Oct, [facility] [address] [id number] [address] [place] [address], [place] [address] Oct, [facility] [address] [id number] [address] [place] [address], [place] [address] Oct, [facility] [address] [id number] [address] [place] [address], [place] [address] Oct, [facility] [address] [id number] [address] [place] [address], [place] [address] Oct, [facility] [address] [id number] [address] [place] [address], [place] [address] Oct, [facility] [address] [id number] [address] [place] [address], [place] [address] Oct, [facility] [address] [id number] [address] [place] [address], [place] [address] Sep, [facility] [address] [id number] [address] [place] [address], [place] [address] Sep, [facility] [address] [id number] [address] [place] [address], [place] [address] Sep, [facility] [address] [id number] [address] [place] [address], [place] [address] Sep, [facility] [address] [id number] [address] [place] [address], [place] [address] Sep, [facility] [address] [id number] [address] [place] [address], [place] [address] Sep, [facility] [address] [id number] [address] [place] [address], [place] [address] Sep, [facility] [address] [id number] [address] [place] [address], [place] [address] Sep, [facility] [address] [id number] [address] [place] [address], [place] [address] Sep, [facility] [address] [id number] [address] [place] [address], [place] [address] August, [facility] [address] [id number] [address] [place] [address], [place] [address] August, [facility] [address] [id number] [address] [place] [address], [place] [address] August, [facility] [address] [id number] [address] [place] [address], [place] [address] August, [facility] [address] [id number] [address] [place] [address], [place] [address] August, [facility] [address] [id number] [address] [place] [address], [place] [address] August, [facility] [address] [id number] [address] [place] [address], [place] [address] Jul, [facility] [address] [id number] [address] [place] [address], [place] [address] Jul, [facility] [address] [id number] [address] [place] [address], [place] [address] Jul, [facility] [address] [id number] [address] [place] [address], [place] [address] Jul, [facility] [address] [id number] [address] [place] [address], [place] [address] Jul, [facility] [address] [id number] [address] [place] [address], [place] [address] Jul, [facility] [address] [id number] [address] [place] [address], [place] [address] Jun, [facility] [address] [id number] [address] [place] [address], [place] [address] Jun, [facility] [address] [id number] [address] [place] [address], [place] [address] May, [facility] [address] [id number] [address] [place] [address], [place] [address] May, [facility] [address] [id number] [address] [place] [address], [place] [address] May, [facility] [address] [id number] [address] [place] [address], [place] [address] May, [facility] [address] [id number] [address] [place] [address], [place] [address] Apr, [facility] [address] [id number] [address] [place] [address], [place] [address] Apr, [facility] [address] [id number] [address] [place] [address], [place] [address] Mar, [facility] [address] [id number] [address] [place] [address], [place] [address] 18 Mar, 2013 [facility] [address] [id number] [address] [place] [address], [place] [address] Mar, [facility] [address] [id number] [address] [place] [address], [place] [address] Mar, [facility] [address] [id number] [address] [place] [address], [place] [address] 05 Mar, 2013 [facility] [address] [id number] [address] [place] [address], [place] [address] 05 Mar, 2013 [facility] [address] [id number] [address] [place] [address], [place] [address] Feb, [facility] [address] [id number] [address] [place] [address], [place] [address] Feb, [facility] [address] [id number] [address] [place] [address], [place] [address] 14 Feb, 2013 [facility] [address] [id number] [address] [place] [address], [place] [address] 14 Feb, 2013 [facility] [address] [id number] [address] [place] [address], [place] [address] 05 Feb, 2013 [facility] [address] [id number] [address] [place] [address], [place] [address] 05 Feb, 2013 [facility] [address] [id number] [address] [place] [address], [place] [address] Jan, [facility] [address] [id number] [address] [place] [address], [place] [address] Jan, [facility] [address] [id number] [address] [place] [address], [place] [address] Jan, [facility] [address] [id number] [address] [place] [address], [place] [address] Jan, [facility] [address] [id number] [address] [place] [address], [place] [address] Jan, [facility] [address] [id number] [address] [place] [address], [place] [address] Jan, [facility] [address] [id number] [address] [place] [address], [place] [address] Dec, [facility] [address] [id number] [address] [place] [address], [place] [address] Dec, [facility] [address] [id number] [address] [place] [address], [place] [address] Nov, [facility] [address] [id number] [address] [place] [address], [place] [address] Nov, [facility] [address] [id number] [address] [place] [address], [place] [address] Oct, [facility] [address] [id number] [address] [place] [address], [place] [address] Oct, [facility] [address] [id number] [address] [place] [address], [place] [address] Oct, [facility] [address] [id number] [address] [place] [address], [place] [address] Oct, [facility] [address] [id number] [address] [place] [address], [place] [address] Oct, [facility] [address] [id number] [address] [place] [address], [place] [address] Oct, [facility] [address] [id number] [address] [place] [address], [place] [address] Sep, [facility] [address] [id number] [address] [place] [address], [place] [address] Sep, [facility] [address] [id number] [address] [place] [address], [place] [address] Sep, [facility] [address] [id number] [address] [place] [address], [place] [address] Sep, [facility] [address] [id number] [address] [place] [address], [place] [address] August, [facility] [address] [id number] [address] [place] [address], [place] [address] August, [facility] [address] [id number] [address] [place] [address], [place] [address] August, [facility] [address] [id number] [address] [place] [address], [place] [address] August, [facility] [address] [id number] [address] [place] [address], [place] [address] August, [facility] [address] [id number] [address] [place] [address], [place] [address] Jul, [facility] [address] [id number] [address] [place] [address], [place] [address] Jul, [facility] [address] [id number] [address] [place] [address], [place] [address] 15 Jul, 2012 [facility] [address] [id number] [address] [place] [address], [place] [address] Jul, [facility] [address] [id number] [address] [place] [address], [place] [address] Jul, [facility] [address] [id number] [address] [place] [address], [place] [address] Jul, [facility] [address] [id number] [address] [place] [address] Jul, [facility] [address] [id number] [address] [place] [address], [place] [address] Jul, [facility] [address] [id number] [address] [place] [address] Jul, [facility] [address] [id number] [address] [place] [address], [place] [address] Jul, [facility] [address] [id number] [id number] Jun, [facility] [address] [id number] [address] [place] [address], [place] [address] Jun, [facility] [address] [id number] [address] [place] [address], [place] [address] Jun, [facility] [address] [id number] [address] [place] [address], [place] [address] Jun, [facility] [address] [id number] [address] [place] [address], [place] [address] Jun, [facility] [address] [id number] [address] [place] [address], [place] [address] May, [facility] [address] [id number] [address] [place] [address], [place] [address] May, [facility] [address] [id number] [address] [place] [address], [place] [address] May, [facility] [address] [id number] [address] [place] [address], [place] [address] Apr, [facility] [address] [id number] [address] [place] [address], [place] [address] Apr, [facility] [address] [id number] [address] [place] [address], [place] [address] Apr, [facility] [address] [id number] [address] [place] [address], [place] [address] Apr, [facility] [address] [id number] [address] [place] [address], [place] [address] Apr, [facility] [address] [id number] [address] [place] [address], [place] [address] Apr, [facility] [address] [id number] [address] [place] [address], [place] [address] Mar, [facility] [address] [id number] [address] [place] [address], [place] [address] Mar, [facility] [address] [id number] [address] [place] [address], [place] [address] Mar, [facility] [address] [id number] [address] [place] [address], [place] [address] Mar, [facility] [address] [id number] [address] [place] [address], [place] [address] Feb, [facility] [address] [id number] [address] [place] [address], [place] [address] Feb, [facility] [address] [id number] [address] [place] [address], [place] [address] Feb, [facility] [address] [id number] [address] [place] [address], [place] [address] Feb, [facility] [address] [id number] [address] [place] [address], [place] [address] Feb, [facility] [address] [id number] [address] [place] [address], [place] [address] Feb, [facility] [address] [id number] [address] [place] [address], [place] [address] Feb, [facility] [address] [id number] [address] [place] [address], [place] [address] Feb, [facility] [address] [id number] [address] [place] [address], [place] [address] Feb, [facility] [address] [id number] [address] [place] [address], [place] [address] Feb, [facility] [address] [id number] [address] [place] [address], [place] [address] Feb, [facility] [address] [id number] [address] [place] [address], [place] [address] Feb, [facility] [address] [id number] [address] [place] [address], [place] [address] Feb, [facility] [address] [id number] [address] [place] [address], [place] [address] Feb, [facility] [address] [id number] [address] [place] [address], [place] [address] Feb, [facility] [address] [id number] [address] [place] [address], [place] [address] Feb, [facility] [address] [id number] [address] [place] [address], [place] [address] Jan, [facility] [address] [id number] [address] [place] [address], [place] [address] Jan, [facility] [address] [id number] [address] [place] [address], [place] [address] Jan, [facility] [address] [id number] [address] [place] [address] Jan, [facility] [address] [id number] [address] [place] [address], [place] [address] 30 Jan, 2012 [facility] [address] [id number] [address] [place] [address] Jan, [facility] [address] [id number] [address] [place] [address], [place] [address] Jan, [facility] [address] [id number] [address] [place] [address], [place] [address] Jan, [facility] [address] [id number] [address] [place] [address], [place] [address] Jan, [facility] [address] [id number] [address] [place] [address] [place] [address] 15 Jan, 2012 [facility] [address] [id number] [address] [place] [address], [place] [address] 15 Jan, 2012 [facility] [address] [id number] [address] [place] [address], [place] [address] Jan, [facility] [address] [id number] [address] [place] [address], [place] [address] 26 Sep, 2011 [facility] [address] [id number] [address] [place] [address], [place] [address] 26 Sep, 2011 [facility] [address] [id number] [address] [place] [address], [place] [address] 24 Sep, 2011 [facility] [address] [id number] [address] [place] [address], [place] [address] 23 Sep, 2011 [facility] [address] [id number] [address] [place] [address], [place] [address] 22 Sep, 2011 [facility] [address] [id number] [address] [place] [address], [place] [address] 21 Sep, 2011 [facility] [address] [id number] [address] [place] [address], [place] [address] 20 Sep, 2011 [facility] [address] [id number] [address] [place] [address], [place] [address] 20 Sep, 2011 [facility] [address] [id number] [address] [place] [address], [place] [address] 07 Sep, 2011 [facility] [address] [id number] [address] [place] [address], [place] [address] 06 Sep, 2011 [facility] [address] [id number] [address] [place] [address], [place] [address] 06 Sep, 2011 [facility] [address] [id number] [address] [place] [address], [place] [address] 05 Sep, 2011 [facility] [address] [id number] [address] [place] [address], [place] [address] 23 Nov, 2011 [facility] [address] [id number] [facility] [place] [address] 17 Nov, 2011 [facility] [address] [id number] [address] [place] [address], [place] [address] Nov, [facility] [address] [id number] [address] [place] [address], [place] [address] Nov, [facility] [address] [id number] [address] [place] [address], [place] [address] Nov, [facility] [address] [id number] [address] [place] [address], [place] [address] Nov, [facility] [address] [id number] [address] [place] [address], [place] [address] Nov, [facility] [address] [id number] [address] [place] [address], [place] [address] Nov, [facility] [address] [id number] [address] [place] [address], [place] [address] 30 Oct, 2011 [facility] [address] [id number] [address] [place] [address], [place] [address] Oct, [facility] [address] [id number] [address] [place] [address], [place] [address] Oct, [facility] [address] [id number] [address] [place] [address], [place] [address] Oct, [facility] [address] [id number] [address] [place] [address], [place] [id number] Oct, [facility] [address] [id number] [address] [place] [address], [place] [address] 16 Oct, 2011 [facility] [address] [id number] [address] [place] [address], [place] [address] Oct, [facility] [address] [id number] [address] [place] [address], [place] [address] Sep, [facility] [address] [id number] [address] [place] [address], [place] [address] Sep, [facility] [address] [id number] [address] [place] [address], [place] [address] August, [facility] [address] [id number] [address] [place] [address], [place] [address] August, [facility] [address] [id number] [address] [place] [address], [place] [address] August, [facility] [address] [id number] [address] [place] [address], [place] [address] August, [facility] [address] [id number] [address] [place] [address], [place] [address] Jul, [facility] [address] [id number] [address] [place] [address], [place] [address] Jul, [facility] [address] [id number] [address] [place] [address], [place] [address] Jul, [facility] [address] [id number] [address] [place] [address], [place] [address] Jul, [facility] [address] [id number] [address] [place] [address], [place] [address] Jul, [facility] [address] [id number] [address] [place] [address], [place] [address] Jul, [facility] [address] [id number] [address] [place] [address], [place] [address] Jul, [facility] [address] [id number] [address] [place] [address], [place] [address] Jul, [facility] [address] [id number] [address] [place] [address], [place] [address] Jul, [facility] [address] [id number] [address] [place] [address], [place] [address] Jun, [facility] [address] [id number] [address] [place] [address], [place] [address] Jun, [facility] [address] [id number] [address] [place] [address], [place] [address] 15 Jun, 2011 [facility] [address] [id number] [address] [place] [address], [place] [address] 14 Jun, 2011 [facility] [address] [id number] [address] [place] [address], [place] [address] 12 Jun, 2011 [facility] [address] [id number] [address] [place] [address], [place] [address] 09 Jun, 2011 [facility] [address] [id number] [address] [place] [address], [place] [address] 09 Jun, 2011 [facility] [address] [id number] [address] [place] [address], [place] [address] 25 May, 2011 [facility] [address] [id number] [address] [place] [address], [place] [address] 24 May, 2011 [facility] [address] [id number] [address] [place] [address], [place] [address] 16 May, 2011 [facility] [address] [id number] [address] [place] [address], [place] [address] 16 May, 2011 [facility] [address] [id number] [address] [place] [address], [place] [address] May, [facility] [address] [id number] [address] [place] [address], [place] [address] Apr, [facility] [address] [id number] [address] [place] [address], [place] [address] Apr, [facility] [address] [id number] [address] [place] [address], [place] [address] Apr, [facility] [address] [id number] [address] [place] [address], [place] [address] Apr, [facility] [address] [id number] [address] [place] [address], [place] [address] Apr, [facility] [address] [id number] [address] [place] [address], [place] [address] Mar, [facility] [address] [id number] [address] [place] [address], [place] [address] Mar, [facility] [address] [id number] [address] [place] [address], [place] [address] Mar, [facility] [address] [id number] [address] [place] [address], [place] [address] Mar, [facility] [address] [id number] [address] [place] [address], [place] [address] Mar, [facility] [address] [id number] [address] [place] [address], [place] [address] Mar, [facility] [address] [address] [id number] [address] [place] [address], [place] [id number] Mar, [facility] [address] [id number] [address] [place] [address], [place] [id number] Feb, [facility] [address] [id number] [address] [place] [address], [place] [id number] Feb, [facility] [address] [id number] [address] [place] [address], [place] [id number] Feb, [facility] [address] [id number] [address] [place] [id number] Feb, [facility] [address] [id number] [address] [place] [address], [place] [id number] Jan, [facility] [address] [id number] [address] [place] [id number] Jan, [facility] [address] [id number] [address] [place] [address], [place] [id number] Jan, [facility] [address] [id number] [address] [place] [address], [place] [id number] Jan, [facility] [address] [id number] [address] [place] [address], [place] [id number] Nov, [facility] [address] [id number] [address] [place] [id number] Mar, [facility] [address] [id number] [address] [place] [id number] Mar, [facility] [address] [id number] [address] [place] [id number] Mar, [facility] [address] [id number] [address] [place] [id number] Mar, [facility] [address] [id number] [address] [place] [id number] Mar, [facility] [address] [id number] [address] [place] [id number] Mar, [facility] [address] [id number] [address] [place] [id number] Feb, [facility] [address] [facility] [id number] [address] [place] [id number] Feb, [facility] [address] [id number] [address] [place] [id number] Jan, [facility] [address] [facility] [id number] [address] [place] [id number] Jan, [facility] [address] [facility] [id number] [address] [place] [id number] Jan, IMMUNIZATIONS No Known Immunizations SOCIAL HISTORY [...] 2007 Surgical History Bladder surgery [facility] 03/2016 Surgical History Neurotransmitter placed 10/2017 [...]
--- OUTSIDE RECORDS SUMMARY | 2019-08-01 10:16 | XMS REPORT ---
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 Active 19656689 Problem Chronic kidney disease, stage 4 (severe) N18.4 Active 879194752 Problem Degenerative tear of medial meniscus of left knee M23.204 Active 351254230 Problem Dysthymic disorder F34.1 Active 7 8974331 Problem Bipolar disorder, current episode manic without psychotic features F31.10 Active 512414873 Problem Generalized anxiety disorder F41.1 A ctive 78164201 Problem Restless leg G25.81 Active 5307162 8 Problem Coronary artery disease invo [place]ving [place] coronary artery of [place] heart, angina presence unspecified I25.10 Active 0619759405976 Problem Hypokalemia E87.6 Active 08488153 Problem Other seasonal allergic rhinitis J30.2 Active 960418565 Problem Mixed stress and urge urinary incontinence N39.46 Active 192920161 Problem Fibromyalgia M79.7 Active 3603007 05 Problem Essential (primary) hypertension I10 Active 61681645 Problem Long-term use of high-risk medication Z79.899 Active 657112172 Problem Vitamin D deficiency E55.9 Active 54404286 Problem Anemia in chronic kidney disease D63.1 Active 126097625022288 Problem Low back pain M54.5 Active 388347 009 Problem Chronic kidney disease, unspecified N18.9 Active 265247694 Problem Abnormal chest CT R93.8 Active 44 5689074 Problem Primary osteoarthritis of left knee M17.12 Active 457678030 Problem Mood disorder F39 Active 464501 05 Problem Stage 3 chronic kidney disease N18.3 Active 663039241 Problem Perimenopausal vasomotor symptoms N95.1 Active 057108141 Problem Asthma with acute exacerbation in adult J45.901 Active 776914962 Problem Other chronic pain G89.29 Active 8 1503234 Problem History of colon polyps Z86.010 Active 534616652 Problem History of anemia Z86.2 Active 27 0643247 Problem Body mass index (BMI) of 40.0-44.9 in adult Z68.41 Active 640553324 Problem Seasonal allergic rhinitis due to pollen J30.1 Active 95153276 Problem Restless leg syndrome G25.81 Active 89632083 Problem Chronic pain syndrome G89.4 Active 041246475 ALLERGIES No Information ENCOUNTERS Encounter Location Date Diagnosis [facility], [place] [address] [facility] [id number] [address] [place] [id number] Nov, [facility], [place] [address] [facility] [id number] [address] [place] [id number] Oct, [facility], [place] [address] [facility] [id number] [address] [place] [id number] Oct, [facility] [address] [facility] [id number] [address] [place] [id number] Oct, [facility], [place] [address] [facility] [id number] [address] [place] [phone] Oct, Chronic pain syndrome G89.4 [facility], [place] [address] [facility] [id number] [address] [place] [id number] Oct, Chronic pain syndrome G89.4 [facility] [address] [facility] [id number] [address] [place] [id number] Oct, UTI symptoms R39.9 ; Acute c ystitis without hematuria N30.00 and Morbid obesity E66.01 [facility], [place] [address] [facility] [id number] [address] [place] [id number] Oct, [facility], [place] [address] [facility] [id number] [address] [place] [id number] Oct, Chronic pain syndrome G89.4 [facility], [place] [address] [facility] [id number] [address] [place] [id number] Sep, [facility], [place] [address] [facility] [id number] [address] [place] [id number] Sep, Generalized anxiety disorder F41.1 and Major depressive disorder, recurrent episode with anxious distress F33.9 [facility], [place] [address] [facility] [id number] [address] [place] [id number] 17 Sep, 2018 Chronic kidney disease, stag e 4 (severe) N18.4 [facility], [place] [address] [facility] [id number] [address] [place] [id number] Sep, Fibromyalgia M79.7 and Chron ic pain syndrome G89.4 [place] [address] [facility] [id number] [address] [place] [id number] Sep, [address] [id number] Sep, Chronic pain syndrome G89.4 [place] [address] [facility] [id number] [address] [place] [id number] Sep, [facility], [place] [address] [facility] [id number] [address] [place] [id number] Sep, Chronic pain syndrome G89.4 ; Fibromyalgia M79.7 and Morbid obesity E66.01 [facility], [place] [address] [facility] [id number] [address] [place] [id number] August, Generalized anxiety disorder F41.1 and Major depressive disorder, recurrent episode with anxious distress F33.9 [place] [address] [facility] [id number] [address] [place] [phone] August, Fibromyalgia M79.7 [place] [address] [facility] [id number] [address] [place] [address] August, Restless leg syndrome G25.81 ; Vitamin D deficiency E55.9 ; Urinary tract infection without hematuria, site unspecified N39.0 ; Pain in right shoulder M25.511 ; Other chronic pain G89.29 ; Biceps tendinitis on right M75.21 and Morbid obesity E66.01 [facility], [place] [address] [id number] [address] [place] [id number] Jul, Urinary tract infection with out hematuria, site unspecified N39.0 and Morbid obesity E66.01 [facility], [place] [address] [id number] [address] [place] [address] Jul, [facility], [place] [address] [id number] [address] [place] [id number] Jul, [facility], [place] [address] [id number] [address] [place] [id number] Jul, Fibromyalgia M79.7 [facility], [place] [address] [id number] [address] [place] [id number] Jul, Acute pain of right shoulder M25.511 [facility], [place] [address] [id number] [address] [place] [address] Jul, Acute pain of right shoulder M25.511 and Morbid obesity E66.01 [facility], [place] [address] [id number] [address] [place] [id number] Jun, [facility], [place] [address] [facility] [id number] [address] [place] [id number] Jun, Generalized anxiety disorder F41.1 and Major depressive disorder, recurrent episode with anxious distress F33.9 [facility], [place] [address] [id number] [address] [place] [id number] Jun, [facility], [place] [address] [facility] [id number] [address] [place] [id number] Jun, Fibromyalgia M79.7 [facility] [address] [id number] [address] [place] [id number] Jun, Acute pain of right shoulder M25.511 ; Acute pain of right hip M25.551 and Morbid obesity E66.01 [facility], [place] [address] [id number] [address] [place] [id number] May, Burning with urination R30.0 ; Vaginal discharge N89.8 ; Chronic kidney disease, stage 4 (severe) N18.4 ; Body mass index (BMI) of 40.0-44.9 in adult Z68.41 and Morbid obesity E66.01 [facility], [place] [address] [facility] [id number] [address] [place] [id number] 07 May, 2018 Fibromyalgia M79.7 [facility], [place] [address] [facility] [id number] [address] [place] [id number] 06 May, 2018 Generalized anxiety disorder F41.1 and Major depressive disorder, recurrent episode with anxious distress F33.9 [facility], [place] [address] [facility] [id number] [address] [place] [id number] 24 Apr, 2018 [facility], [place] [address] [facility] [id number] [address] [place] [id number] 08 Apr, 2018 Fibromyalgia M79.7 [facility] [address] [facility] [id number] [address] [place] [id number] 14 Mar, 2018 Acute UTI N39.0 and Dysuria R30.0 [facility], [place] [address] [facility] [id number] [address] [place] [id number] 10 Mar, 2018 Fibromyalgia M79.7 [facility], [place] [address] [facility] [id number] [address] [place] [id number] 15 Feb, 2018 [facility], [place] [address] [facility] [id number] [address] [place] [id number] Feb, [facility], [place] [address] [facility] [id number] [address] [place] [id number] Feb, [facility], [place] [address] [facility] [id number] [address] [place] [phone] Feb, Fibromyalgia M79.7 [facility], [place] [address] [facility] [id number] [address] [place] [id number] 08 Feb, 2018 Complicated UTI (urinary tra ct infection) N39.0 [facility], [place] [address] [facility] [id number] [address] [place] [phone] Feb, [facility], [place] [address] [facility] [id number] [address] [place] [phone] Jan, Generalized anxiety disorder F41.1 and Major depressive disorder, recurrent episode with anxious distress F33.9 [facility] [address] [id number] [address] [place] [id number] Jan, Acute conjunctivitis of left eye, unspecified acute conjunctivitis type H10.32 [facility], [place] [address] [facility] [id number] [address] [place] [phone] Jan, [facility], [place] [address] [facility] [id number] [address] [place] [id number] Jan, Acute non-recurrent maxillar y sinusitis J01.00 ; Dysuria R30.0 ; Perimenopausal vasomotor symptoms N95.1 and Fibromyalgia M79.7 [facility], [place] [address] [facility] [id number] [address] [place] [id number] Dec, Vitamin D deficiency E55.9 [facility], [place] [address] [facility] [id number] [address] [place] [id number] Dec, Vitamin D deficiency E55.9 [facility], [place] [address] [facility] [id number] [address] [place] [id number] 24 Dec, 2017 Vitamin D deficiency E55.9 [facility], [place] [address] [facility] [id number] [address] [place] [id number] Dec, [facility], [place] [address] [facility] [id number] [address] [place] [id number] Dec, Fibromyalgia M79.7 [facility], [place] [address] [id number] [address] [place] [id number] Nov, [facility], [place] [address] [facility] [id number] [address] [place] [phone] Nov, [facility], [place] [address] [facility] [id number] [address] [place] [phone] Nov, [facility], [place] [address] [id number] [address] [place] [id number] Nov, Fibromyalgia M79.7 ; Vision changes H53.9 ; Chest wall pain R07.89 and Chronic pain syndrome G89.4 [facility], [place] [address] [id number] [address] [place] [id number] Nov, [facility], [place] [address] [id number] [address] [place] [id number] Nov, Rash of hands R21 [facility], [place] [address] [id number] [address] [place] [id number] Nov, Generalized anxiety disorder F41.1 and Major depressive disorder, recurrent episode with anxious distress F33.9 [facility], [place] [address] [id number] [address] [place] [id number] Nov, Fibromyalgia M79.7 [facility], [place] [address] [id number] [address] [place] [id number] Nov, Complicated UTI (urinary tra ct infection) N39.0 [facility], [place] [address] [id number] [address] [place] [id number] Oct, [facility], [place] [address] [id number] [address] [place] [id number] Oct, Generalized anxiety disorder F41.1 and Major depressive disorder, recurrent episode with anxious distress F33.9 [facility], [place] [address] [id number] [address] [place] [id number] Oct, [facility], [place] [address] [id number] [address] [place] [id number] Oct, Fibromyalgia M79.7 [facility], [place] [address] [id number] [address] [place] [id number] Sep, Restless leg syndrome G25.81 and Restless leg G25.81 [facility], [place] [address] [id number] [address] [place] [id number] Sep, [facility], [place] [id number] [place] [id number] Sep, Seasonal allergic rhinitis d ue to pollen J30.1 ; Screening for breast cancer Z12.31 ; Chest pain at rest R07.9 ; Restless leg syndrome G25.81 ; Essential (primary) hypertension I10 and Depressed F32.9 [facility], [place] [id number] [place] [address] August, Fibromyalgia M79.7 [facility], [place] [address] [place] [id number] [place] [address] August, [facility], [place] [address] [place] [id number] [place] [address] August, [facility], [place] [address] [place] [id number] [place] [address] August, Abnormal chest [place] R93.8 [place] [address] [address] August, Generalized anxiety disorder F41.1 and Major depressive disorder, recurrent episode with anxious distress F33.9 [facility], [place] [address] [place] [id number] [address] [place] [id number] August, Abnormal chest [place] R93.8 [facility], [place] [address] [place] [id number] [place] [address] Jul, [place] [address] [address] Jul, Chronic kidney disease, stag e 4 (severe) N18.4 [facility], [place] [address] [place] [id number] [address] [place] [id number] Jul, [facility], [place] [address] [place] [id number] [place] [address] Jul, Restless leg G25.81 ; Mixed stress and urge urinary incontinence N39.46 and Fibromyalgia M79.7 [facility], [place] [address] [place] [id number] [address] [place] [id number] Jul, Chronic kidney disease, stag e 4 (severe) N18.4 [facility], [place] [address] [facility] [id number] [address] [place] [address] Jun, Orthostatic hypotension I95. 1 ; Chronic kidney disease, stage 4 (severe) N18.4 ; Chest wall discomfort R07.89 and Body mass index (BMI) of 40.0- 44.9 in adult Z68.41 [facility], [place] [address] [facility] [id number] [address] [place] [id number] Jun, [facility], [place] [address] [facility] [id number] [address] [place] [phone] Jun, Orthostatic hypotension I95. 1 [facility], [place] [address] [place] [id number] [address] [place] [id number] Jun, [facility] [address] [facility] [id number] [address] [place] [id number] Jun, Orthostatic hypotension I95. 1 ; Dysuria R30.0 and Acute cystitis without hematuria N30.00 [facility], [place] [address] [facility] [id number] [address] [place] [address] Jun, [facility], [place] [address] [place] [id number] [address] [place] [id number] Jun, Chronic kidney disease, stag e 4 (severe) N18.4 [facility], [place] [address] [place] [id number] [address] [place] [id number] Jun, Fibromyalgia M79.7 [facility], [place] [address] [facility] [id number] [address] [place] [id number] Jun, [facility], [place] [address] [place] [id number] [address] [place] [phone] Jun, [facility], [place] [address] [place] [id number] [address] [place] [address] May, Abnormal chest [place] R93.8 and Stage 3 chronic kidney disease N18.3 [facility], [place] [address] [place] [id number] [address] [place] [address] May, Chronic kidney disease, stag e 4 (severe) N18.4 [facility], [place] [address] [id number] [address] [place] [phone] May, Chronic kidney disease, stag e 4 (severe) N18.4 [facility], [place] [address] [id number] [address] [place] [address] May, Abnormal chest [place] R93.8 [facility], [place] [address] [id number] [address] [place] [id number] May, [facility], [place] [address] [id number] [address] [place] [phone] May, [facility], [place] [address] [facility] [id number] [address] [place] [address] May, Generalized anxiety disorder F41.1 and Major depressive disorder, recurrent episode with anxious distress F33.9 [facility], [place] [address] [id number] [address] [place] [phone] May, Mood disorder F39 [facility], [place] [address] [id number] [address] [place] [id number] Apr, [facility], [place] [address] [id number] [address] [place] [id number] Apr, Infected skin lesion L08.9 a nd Muscle strain of right shoulder region, initial encounter S46.911A [facility], [place] [address] [id number] [address] [place] [phone] Apr, Generalized anxiety disorder F41.1 and Major depressive disorder, recurrent episode with anxious distress F33.9 [facility], [place] [address] [id number] [address] [place] [id number] Apr, [facility], [place] [address] [facility] [id number] [address] [place] [address] Apr, Recent urinary tract infecti on Z87.440 and Hypothyroid E03.9 [facility], [place] [address] [id number] [address] [place] [id number] Apr, Generalized anxiety disorder F41.1 and Major depressive disorder, recurrent episode with anxious distress F33.9 [facility], [place] [address] [id number] [address] [place] [address] Apr, Recent urinary tract infecti on Z87.440 [facility], [place] [address] [id number] [address] [place] [id number] Mar, [facility] [address] [id number] [address] [place] [address] Mar, Dysuria R30.0 ; Acute cystit is without hematuria N30.00 and BMI 40.0-44.9, adult Z68.41 [facility], [place] [address] [facility] [id number] [address] [place] [id number] Mar, [facility], [place] [address] [id number] [address] [place] [id number] Mar, [facility], [place] [address] [id number] [address] [place] [id number] Mar, Generalized anxiety disorder F41.1 and Major depressive disorder, recurrent episode with anxious distress F33.9 [facility], [place] [address] [id number] [address] [place] [id number] 29 Feb, 2017 Conjunctivitis, bacterial H1 0.9 [facility], [place] [address] [id number] [address] [place] [id number] 27 Feb, 2017 [facility] [address] [id number] [address] [place] [id number] Feb, Conjunctivitis, bacterial H1 0.9 [facility], [place] [address] [facility] [id number] [address] [place] [id number] 15 Feb, 2017 [facility] [address] [facility] [id number] [address] [place] [id number] 10 Feb, 2017 Dysuria R30.0 ; Acute cystit is N30.00 and BMI 40.0-44.9, adult Z68.41 [place] [address] [id number] Feb, [place] [address] [place] [id number] [place] [id number] Feb, Generalized anxiety disorder F41.1 and Major depressive disorder, recurrent episode with anxious distress F33.9 [place] [address] [place] [id number] [place] [id number] Feb, Mood disorder F39 and BMI 40 .0-44.9, adult Z68.41 [place] [address] [id number] Jan, [place] [address] [id number] Jan, [place] [address] [id number] Jan, Hypothyroid E03.9 [place] [address] [id number] Jan, [place] [address] [id number] Jan, Chronic kidney disease, unsp ecified N18.9 ; Hypokalemia E87.6 ; Essential (primary) hypertension I10 ; Fibromyalgia M79.7 ; Coronary artery disease involving [place] coronary artery of [place] heart, angina presence unspecified I25.10 ; Hypothyroid E03.9 and Encounter for immunization Z23 [place] [address] [address] Jan, Hypothyroid E03.9 [place] [address] [place] [id number] [place] [address] Jan, [place] [address] [place] [id number] [place] [address] Dec, Vitamin D deficiency E55.9 [facility], [place] [address] [id number] [address] [place] [id number] 28 Dec, 2017 Primary osteoarthritis of le ft knee M17.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 [facility] [place] [address] [id number] [address] [place] [id number] 19 Dec, 2016 Fibromyalgia M79.7 [facility] [place] [address] [id number] [address] [place] [id number] 18 Dec, 2016 Mood disorder F39 [facility] [place] [address] [id number] [address] [place] [id number] 13 Dec, 2016 [place] [address] [id number] [address] [place] [id number] 13 Dec, 2016 Generalized anxiety disorder F41.1 and Major depressive disorder, recurrent episode with anxious distress F33.9 [facility] [place] [address] [id number] [address] [place] [id number] 11 Dec, 2016 [place] [address] [id number] [address] [place] [id number] 08 Dec, 2016 Streptococcal meningitis G00 .2 [place] [address] [id number] [address] [place] [id number] 07 Dec, 2016 Streptococcal meningitis G00 .2 [facility] [place] [address] [id number] [address] [place] [id number] 07 Dec, 2016 [facility] [place] [address] [id number] [address] [place] [id number] 06 Dec, 2016 Streptococcal meningitis G00 .2 [facility] [place] [address] [id number] [address] [place] [id number] 06 Dec, 2016 [facility] [place] [address] [facility] [id number] [address] [place] [id number] 06 Dec, 2016 Major depressive disorder, r ecurrent episode with anxious distress F33.9 [facility] [place] [address] [id number] [address] [place] [id number] Nov, Fever, unspecified fever cau se R50.9 [facility] [place] [address] [id number] [address] [place] [id number] Nov, [facility] [place] [address] [facility] [id number] [address] [place] [id number] Nov, Hypothyroid E03.9 [facility] [place] [address] [id number] [address] [place] [phone] Nov, Generalized anxiety disorder F41.1 and Major depressive disorder, recurrent episode with anxious distress F33.9 [facility] [place] [address] [id number] [address] [place] [id number] Nov, [facility] [address] [id number] [address] [place] [id number] Oct, Dental examination Z01.20 [facility] [place] [address] [facility] [id number] [address] [place] [id number] Oct, Generalized anxiety disorder F41.1 and Major depressive disorder, recurrent episode with anxious distress F33.9 [facility] [place] [address] [facility] [id number] [address] [place] [phone] Oct, Chronic kidney disease, stag e 4 (severe) N18.4 [facility] [place] [address] [facility] [id number] [address] [place] [id number] Oct, [facility] [place] [address] [facility] [id number] [address] [place] [phone] Oct, Fibromyalgia M79.7 [facility] [place] [address] [id number] [address] [place] [phone] Oct, [facility] [place] [address] [facility] [id number] [address] [place] [id number] Oct, Generalized anxiety disorder F41.1 ; Major depressive disorder, recurrent episode with anxious distress F33.9 and Bipolar disorder, current episode manic without psychotic features F31.10 [facility] [place] [address] [facility] [id number] [address] [place] [id number] Sep, [facility] [place] [address] [facility] [id number] [address] [place] [phone] Sep, [facility] [place] [address] [facility] [id number] [address] [place] [id number] 15 Sep, 2016 Vitamin D deficiency E55.9 [facility] [place] [address] [facility] [id number] [address] [place] [id number] 14 Sep, 2016 Vitamin D deficiency E55.9 [facility] [place] [address] [facility] [id number] [address] [place] [id number] Sep, [place] [address] [place] [id number] [address] [place] [id number] 07 Sep, 2016 Chronic kidney disease, stag e 4 (severe) N18.4 ; Hypothyroid E03.9 ; Restless leg G25.81 ; Fibromyalgia M79.7 ; Essential (primary) hypertension I10 ; Vitamin D deficiency E55.9 ; Dyspepsia R10.13 ; Anemia in chronic kidney disease D63.1 ; Chronic kidney disease, unspecified N18.9 ; Coronary artery disease involving [place] coronary artery of [place] heart, angina presence unspecified I25.10 ; Screening breast examination Z12.39 and Low back pain M54.5 [facility] [place] [address] [facility] [id number] [address] [place] [phone] August, Generalized anxiety disorder F41.1 and Major depressive disorder, recurrent episode with anxious distress F33.9 [place] [address] [place] [id number] [address] [place] [id number] August, Generalized anxiety disorder F41.1 and Major depressive disorder, recurrent episode with anxious distress F33.9 [place] [address] [facility] [id number] [address] [place] [id number] August, Fibromyalgia M79.7 [facility] [place] [address] [facility] [id number] [address] [place] [id number] 07 Jul, 2016 Generalized anxiety disorder F41.1 and Major depressive disorder, recurrent episode with anxious distress F33.9 [place] [address] [place] [id number] [place] [id number] Jul, Fibromyalgia M79.7 [place] [address] [address] Jul, Generalized anxiety disorder F41.1 [place] [address] [address] May, [place] [address] [address] May, Hypothyroid E03.[address] [address] May, Chronic kidney disease, stag e 4 (severe) N18.4 ; Hypothyroid E03.9 ; Restless leg G25.81 ; Fibromyalgia M79.7 ; Essential (primary) hypertension I10 ; Vitamin D deficiency E55.9 ; Dyspepsia R10.13 ; Acute non-recurrent maxillary sinusitis J01.00 ; Anemia in chronic kidney disease D63.1 ; Chronic kidney disease, unspecified N18.9 and Coronary artery disease involving [place] coronary artery of [place] heart, angina presence unspecified I25.10 [place] [address] [address] May, Vitamin D deficiency, unspec ified E55.[address] [address] May, Generalized anxiety disorder F41.1 and Major depressive disorder, recurrent episode with anxious distress F33.[address] [address] Apr, Pain in right knee M25.561 a nd Pain in left knee M25.562 [place] [address] [address] Apr, [place] [address] [address] Apr, [facility] [place] [address] [facility] [id number] [address] [place] [id number] Apr, [facility] [place] [address] [facility] [id number] [address] [place] [address] Mar, Generalized anxiety disorder F41.1 and Major depressive disorder, recurrent episode with anxious distress F33.9 [facility] [place] [address] [place] [id number] [place] [id number] Mar, Generalized anxiety disorder F41.1 and Major depressive disorder, recurrent episode with anxious distress F33.9 [facility] [place] [address] [facility] [id number] [address] [place] [id number] Mar, [facility] [place] [address] [place] [id number] [address] [place] [id number] Mar, [place] [address] [place] [id number] [address] [place] [id number] Mar, [facility] [place] [address] [place] [id number] [address] [place] [address] Mar, Asthma J45.909 and Fibromyal elvira M79.7 [place] [address] [place] [id number] [place] [id number] Mar, Chronic kidney disease, stag e 4 (severe) N18.4 ; Vitamin D deficiency E55.9 and Essential (primary) hypertension I10 [place] [address] [facility] [id number] [address] [place] [id number] Feb, [facility] [place] [address] [place] [id number] [place] [id number] Feb, Dysuria R30.0 ; Mixed stress and urge urinary incontinence N39.46 ; Fibromyalgia M79.7 and Chronic kidney disease, stage IV (severe) N18.4 [facility] [place] [address] [place] [id number] [address] [place] [id number] Feb, Chronic kidney disease, stag e 4 (severe) N18.4 [facility] [place] [address] [facility] [id number] [address] [place] [id number] Feb, Chronic kidney disease, stag e 4 (severe) N18.4 [facility] [place] [address] [facility] [id number] [address] [place] [address] Feb, [facility] [place] [address] [facility] [id number] [address] [place] [id number] Feb, Vitamin D deficiency, unspec ified E55.9 [facility] [place] [address] [facility] [id number] [address] [place] [phone] Jan, [place] [address] [facility] [id number] [address] [place] [phone] Jan, [place] [address] [facility] [id number] [address] [place] [phone] Dec, [place] [address] [place] [id number] [address] [place] [id number] Dec, Chronic kidney disease, stag e 4 (severe) N18.4 [place] [address] [facility] [id number] [address] [place] [id number] Dec, Dysthymic disorder F34.1 and Generalized anxiety disorder F41.1 [place] [address] [place] [id number] [place] [address] Dec, [place] [address] [place] [id number] [place] [phone] Dec, [place] [address] [place] [id number] [place] [id number] Dec, Dysthymic disorder F34.1 and Generalized anxiety disorder F41.1 [place] [address] [place] [id number] [place] [phone] Dec, Dysuria R30.0 ; Chronic kidn ey disease, stage 4 (severe) N18.4 ; Hypertension I10 ; Dyspepsia R10.13 ; Yeast dermatitis B37.2 ; Palpitations R00.2 ; Hypothyroid E03.9 ; Functional diarrhea K59.1 and Other seasonal allergic rhinitis J30.2 [facility] [address] [address] Dec, [facility] [address] [place] [id number] [place] [address] Nov, Dysuria R30.0 and Stress inc ontinence N39.3 [facility], [place] [address] [address] Nov, [place] [address] [address] Nov, [place] [address] [address] Nov, Osteoarthritis of knees, jose ateral M17.0 [place] [address] [address] Nov, Dysthymic disorder F34.1 and Generalized anxiety disorder F41.1 [place] [address] [address] Nov, [place] [address] [address] Nov, [place] [address] [address] Nov, Urgency of urination R39.15 [place] [address] [address] Nov, [place] [address] [address] Nov, Chronic kidney disease, stag e 4 (severe) N18.4 [place] [address] [address] Oct, Hypertension I10 ; Coronary artery disease involving [place] coronary artery of [place] heart, angina presence unspecified I25.10 ; Palpitations R00.2 ; Hypothyroid E03.9 ; Right foot pain M79.671 ; Functional diarrhea K59.1 and Other seasonal allergic rhinitis J30.2 [place] [address] [address] Oct, Dysthymic disorder F34.1 and Generalized anxiety disorder F41.1 [place] [id number] [place] [address] Sep, [place] [address] [address] Sep, [place] [address] [address] Sep, [place] [address] [place] [id number] [place] [address] Sep, [place] [address] [address] Sep, [place] [address] [address] Sep, Dysthymic disorder F34.1 and Generalized anxiety disorder F41.1 [place] [address] [address] Sep, Asthma with acute exacerbati on in adult J45.901 ; Dysuria R30.0 ; Chronic kidney disease, stage 4 (severe) N18.4 and History of anemia Z86.2 [place] [address] [address] 2015 Generalized anxiety disorder F41.1 and Dysthymic disorder F34.1 [place] [address] [address] August, Screening breast examination Z12.39 and Acute recurrent maxillary sinusitis J01.[address] [address] August, Osteoarthritis of knees, jose ateral M17.0 [place] [address] [facility] [id number] [address] [place] [address] August, Chronic kidney disease, stag e 4 (severe) N18.4 ; Acute non- recurrent maxillary sinusitis J01.00 ; Urinary problem R39.89 ; Bowel habit changes R19.4 ; Functional diarrhea K59.1 and History of colon polyps Z86.010 [place] [address] [facility] [id number] [address] [place] [address] Jul, Dysthymic disorder F34.1 and Generalized anxiety disorder F41.1 [place] [address] [facility] [id number] [address] [place] [address] Jul, [place] [address] [place] [id number] [place] [address] Jul, Dysthymic disorder F34.1 ; G eneralized anxiety disorder F41.1 and intermediate use of drug Z79.899 [place] [address] [facility] [id number] [address] [place] [address] Jul, [place] [address] [facility] [id number] [address] [place] [address] Jun, [place] [address] [facility] [id number] [address] [place] [address] Jun, [place] [address] [place] [id number] [address] [place] [address] May, [place] [address] [facility] [id number] [address] [place] [address] May, Dysthymic disorder F34.1 and Generalized anxiety disorder F41.1 [place] [address] [facility] [id number] [address] [place] [address] Apr, Kidney disease N28.9 [place] [address] [facility] [id number] [address] [place] [address] Apr, Generalized anxiety disorder F41.1 and Dysthymic disorder F34.1 [place] [address] [place] [id number] [address] [place] [address] Apr, Chronic kidney disease, stag e 4 (severe) N18.4 [place] [address] [place] [id number] [address] [place] [address] Apr, Generalized anxiety disorder F41.1 ; Major depression, recurrent F33.9 and Sleep disturbance G47.9 [place] [address] [place] [id number] [address] [place] [address] Mar, Generalized anxiety disorder F41.1 and Dysthymic disorder F34.1 [place] [address] [place] [id number] [place] [address] Mar, Generalized anxiety disorder F41.1 ; Dysthymic disorder F34.1 and Insomnia G47.00 [place] [address] [address] Mar, [place] [address] [place] [id number] [address] [place] [address] Mar, [place] [address] [address] Mar, Osteoarthritis of knees, jose ateral M17.0 [place] [address] [place] [id number] [address] [place] [address] Mar, Hypertension I10 ; Hypothyro id E03.9 ; Dysthymic disorder F34.1 ; Chronic kidney disease, stage 4 (severe) N18.4 and Nausea & vomiting R11.2 [place] [address] [place] [id number] [address] [place] [address] Mar, Generalized anxiety disorder F41.1 ; Dysthymic disorder F34.1 and Insomnia G47.00 [place] [address] [place] [id number] [address] [place] [address] Mar, Dehydration E86.0 ; Chronic kidney disease, stage 4 (severe) N18.4 and Nausea & vomiting R11.2 [facility] [address] [place] [id number] [address] [place] [address] Mar, Gastroenteritis K52.9 [facility] [place] [address] [place] [id number] [address] [place] [address] Mar, [facility] [place] [address] [address] Mar, [facility] [place] [address] [address] Feb, Dysthymic disorder F34.1 and Generalized anxiety disorder F41.1 [place] [address] [address] Jan, UTI (urinary tract infection ) N39.0 ; Asthma J45.909 ; Coronary artery disease involving [place] coronary artery of [place] heart, angina presence unspecified I25.10 ; Hypertension I10 ; Hypothyroid E03.9 ; Vitamin D deficiency E55.9 ; Insomnia G47.00 ; Palpitations R00.2 ; Depressed F32.9 ; Restless leg G25.81 and Anxiety F41.9 [place] [address] [address] Jan, Dysthymic disorder F34.1 and Generalized anxiety disorder F41.1 [place] [address] [address] Jan, [place] [address] [address] Dec, [place] [address] [place] [id number] [address] [place] [address] Dec, Alkalosis 276.3 ; Chronic ki dney disease, Stage IV (severe) 585.4 ; Hyperpotassemia 276.7 ; Secondary hyperparathyroidism, renal 588.81 ; Proteinuria 791.0 ; Unspecified vitamin D deficiency 268.9 ; Anemia in chronic kidney disease 285.21 ; Other and unspecified hyperlipidemia 272.4 ; Hypertension, essential, benign 401.1 and Chronic kidney disease (CKD), stage III (moderate) 585.3 [facility] [place] [address] [address] 16 Dec, 2014 [facility] [place] [address] [address] 16 Dec, 2014 Depressive disorder, not els ewhere classified 311 and Generalized anxiety disorder 300.02 [place] [address] [address] Dec, [place] [address] [address] Dec, [place] [address] [address] Nov, Depressive disorder, not els ewhere classified 311 and Generalized anxiety disorder 300.02 [place] [address] [address] Nov, Arthritis of both knees 716. 96 [place] [address] [address] Nov, PAF (paroxysmal atrial fibri llation) 427.31 ; CAD (coronary artery disease) 414.00 ; Chest pain 786.50 and Chronic kidney disease (CKD) stage G4/A1, severely decreased glomerular filtration rate (GFR) between 15-29 mL/min/1.73 square meter and albuminuria creatinine ratio less than 30 mg/g 585.4 [place] [address] [address] Oct, Coronary atherosclerosis of unspecified type of vessel, [place] or graft 414.00 ; Chronic kidney disease, Stage IV (severe) 585.4 ; Hypertension 401.9 and Edema 782.3 [place] [address] [address] Oct, Depressive disorder, not els ewhere classified 311 and Generalized anxiety disorder 300.02 [place] [address] [address] Oct, Depressive disorder, not els ewhere classified 311 and Generalized anxiety disorder 300.02 [facility] [place] [address] [address] Oct, [facility] [place] [address] [address] Oct, [facility] [place] [address] [address] Sep, [facility] [place] [address] [address] Sep, Chronic kidney disease, Stag e IV (severe) 585.4 [place] [address] [address] Sep, [facility] [place] [address] [address] Sep, Coronary atherosclerosis of unspecified type of vessel, [place] or graft 414.00 ; Hypertension 401.9 ; Edema 782.3 and Hypothyroidism 244.9 [facility] [place] [address] [address] Sep, Coronary atherosclerosis of unspecified type of vessel, [place] or graft 414.00 ; Hypertension 401.9 ; Fibromyalgia 729.1 ; Edema 782.3 ; Hypothyroidism 244.9 and Anemia 285.9 [facility] [place] [address] [address] Sep, Anxiety disorder, unspecifie d 300.00 and Depressive disorder, not elsewhere classified 311 [facility] [place] [address] [address] Sep, [facility] [place] [address] [id number] August, Generalized anxiety disorder 300.02 [facility] [place] [address] [id number] August, Closed fracture of lateral m alleolus 824.2 [facility] [address] [id number] [address] [place] [address], [place] [address] 14 Jul, 2014 [facility] [address] [id number] [address] [place] [address], [place] [address] Jul, [facility] [address] [id number] [address] [place] [address], [place] [address] Jun, [facility] [address] [id number] [address] [place] [address], [place] [address] Jun, [facility] [address] [id number] [address] [place] [address], [place] [address] Jun, [facility] [address] [id number] [address] [place] [address], [place] [address] Jun, [facility] [address] [id number] [address] [place] [address], [place] [address] Jun, [facility] [address] [id number] [address] [place] [address], [place] [id number] Jun, [facility] [address] [id number] [address] [place] [address], [place] [address] May, [facility] [address] [id number] [address] [place] [address], [place] [address] 19 May, 2014 [facility] [address] [id number] [address] [place] [address], [place] [id number] 18 May, 2014 [facility] [address] [id number] [address] [place] [id number] 18 May, 2014 [facility] [address] [id number] [address] [place] [address], [place] [address] 16 May, 2014 [facility] [address] [id number] [address] [place] [address], [place] [address] 16 May, 2014 [facility] [address] [id number] [address] [place] [address], [place] [address] 13 May, 2014 [facility] [address] [id number] [address] [place] [address], [place] [address] 13 May, 2014 [facility] [address] [id number] [address] [place] [address], [place] [address] 10 May, 2014 [facility] [address] [id number] [address] [place] [address], [place] [address] 10 May, 2014 [facility] [address] [id number] [address] [place] [address], [place] [address] Apr, [facility] [address] [id number] [address] [place] [address], [place] [address] Apr, [facility] [address] [id number] [address] [place] [address], [place] [address] Mar, [facility] [address] [id number] [address] [place] [address], [place] [address] Mar, [facility] [address] [id number] [address] [place] [address], [place] [address] Mar, [facility] [address] [id number] [address] [place] [address], [place] [address] 15 Mar, 2014 [facility] [address] [id number] [address] [place] [address], [place] [address] Mar, [facility] [address] [id number] [address] [place] [address], [place] [address] 15 Mar, 2014 [facility] [address] [id number] [address] [place] [address], [place] [address] Mar, [facility] [address] [id number] [address] [place] [address], [place] [address] 24 Feb, 2014 [facility] [address] [id number] [address] [place] [address], [place] [address] 24 Feb, 2014 [facility] [address] [id number] [address] [place] [address], [place] [address] 17 Feb, 2014 [facility] [address] [id number] [address] [place] [address], [place] [address] Jan, [facility] [address] [id number] [address] [place] [address], [place] [address] Jan, [facility] [address] [id number] [address] [place] [address], [place] [address] Jan, [facility] [address] [id number] [address] [place] [address], [place] [address] Jan, [facility] [address] [id number] [address] [place] [address], [place] [address] Jan, [facility] [address] [id number] [address] [place] [address], [place] [address] Jan, [facility] [address] [id number] [address] [place] [address], [place] [address] Jan, [facility] [address] [id number] [address] [place] [address], [place] [address] Jan, [facility] [address] [id number] [address] [place] [address], [place] [address] Jan, [facility] [address] [id number] [address] [place] [address], [place] [address] Jan, [facility] [address] [id number] [address] [place] [address], [place] [address] Nov, [facility] [address] [id number] [address] [place] [address], [place] [address] Nov, [facility] [address] [id number] [address] [place] [address], [place] [address] Nov, [facility] [address] [id number] [address] [place] [address], [place] [address] Oct, [facility] [address] [id number] [address] [place] [address], [place] [address] Oct, [facility] [address] [id number] [address] [place] [address], [place] [address] Oct, [facility] [address] [id number] [address] [place] [address], [place] [address] Oct, [facility] [address] [id number] [address] [place] [address], [place] [address] Oct, [facility] [address] [id number] [address] [place] [address], [place] [address] Oct, [facility] [address] [id number] [address] [place] [address], [place] [address] Oct, [facility] [address] [id number] [address] [place] [address], [place] [address] Oct, [facility] [address] [id number] [address] [place] [address], [place] [address] Oct, [facility] [address] [id number] [address] [place] [address], [place] [address] Sep, [facility] [address] [id number] [address] [place] [address], [place] [address] Sep, [facility] [address] [id number] [address] [place] [address], [place] [address] Sep, [facility] [address] [id number] [address] [place] [address], [place] [address] Sep, [facility] [address] [id number] [address] [place] [address], [place] [address] Sep, [facility] [address] [id number] [address] [place] [address], [place] [address] Sep, [facility] [address] [id number] [address] [place] [address], [place] [address] Sep, [facility] [address] [id number] [address] [place] [address], [place] [address] Sep, [facility] [address] [id number] [address] [place] [address], [place] [address] Sep, [facility] [address] [id number] [address] [place] [address], [place] [address] August, [facility] [address] [id number] [address] [place] [address], [place] [address] August, [facility] [address] [id number] [address] [place] [address], [place] [address] August, [facility] [address] [id number] [address] [place] [address], [place] [address] August, [facility] [address] [id number] [address] [place] [address], [place] [address] August, [facility] [address] [id number] [address] [place] [address], [place] [address] August, [facility] [address] [id number] [address] [place] [address], [place] [address] Jul, [facility] [address] [id number] [address] [place] [address], [place] [address] Jul, [facility] [address] [id number] [address] [place] [address], [place] [address] Jul, [facility] [address] [id number] [address] [place] [address], [place] [address] Jul, [facility] [address] [id number] [address] [place] [address], [place] [address] Jul, [facility] [address] [id number] [address] [place] [address], [place] [address] Jul, [facility] [address] [id number] [address] [place] [address], [place] [address] Jun, [facility] [address] [id number] [address] [place] [address], [place] [address] Jun, [facility] [address] [id number] [address] [place] [address], [place] [address] May, [facility] [address] [id number] [address] [place] [address], [place] [address] May, [facility] [address] [id number] [address] [place] [address], [place] [address] May, [facility] [address] [id number] [address] [place] [address], [place] [address] May, [facility] [address] [id number] [address] [place] [address], [place] [address] Apr, [facility] [address] [id number] [address] [place] [address], [place] [address] Apr, [facility] [address] [id number] [address] [place] [address], [place] [address] Mar, [facility] [address] [id number] [address] [place] [address], [place] [address] 18 Mar, 2013 [facility] [address] [id number] [address] [place] [address], [place] [address] Mar, [facility] [address] [id number] [address] [place] [address], [place] [address] Mar, [facility] [address] [id number] [address] [place] [address], [place] [address] 05 Mar, 2013 [facility] [address] [id number] [address] [place] [address], [place] [address] 05 Mar, 2013 [facility] [address] [id number] [address] [place] [address], [place] [address] Feb, [facility] [address] [id number] [address] [place] [address], [place] [address] Feb, [facility] [address] [id number] [address] [place] [address], [place] [address] 14 Feb, 2013 [facility] [address] [id number] [address] [place] [address], [place] [address] 14 Feb, 2013 [facility] [address] [id number] [address] [place] [address], [place] [address] 05 Feb, 2013 [facility] [address] [id number] [address] [place] [address], [place] [address] 05 Feb, 2013 [facility] [address] [id number] [address] [place] [address], [place] [address] Jan, [facility] [address] [id number] [address] [place] [address], [place] [address] Jan, [facility] [address] [id number] [address] [place] [address], [place] [address] Jan, [facility] [address] [id number] [address] [place] [address], [place] [address] Jan, [facility] [address] [id number] [address] [place] [address], [place] [address] Jan, [facility] [address] [id number] [address] [place] [address], [place] [address] Jan, [facility] [address] [id number] [address] [place] [address], [place] [address] Dec, [facility] [address] [id number] [address] [place] [address], [place] [address] Dec, [facility] [address] [id number] [address] [place] [address], [place] [address] Nov, [facility] [address] [id number] [address] [place] [address], [place] [address] Nov, [facility] [address] [id number] [address] [place] [address], [place] [address] Oct, [facility] [address] [id number] [address] [place] [address], [place] [address] Oct, [facility] [address] [id number] [address] [place] [address], [place] [address] Oct, [facility] [address] [id number] [address] [place] [address], [place] [address] Oct, [facility] [address] [id number] [address] [place] [address], [place] [address] Oct, [facility] [address] [id number] [address] [place] [address], [place] [address] Oct, [facility] [address] [id number] [address] [place] [address], [place] [address] Sep, [facility] [address] [id number] [address] [place] [address], [place] [address] Sep, [facility] [address] [id number] [address] [place] [address], [place] [address] Sep, [facility] [address] [id number] [address] [place] [address], [place] [address] Sep, [facility] [address] [id number] [address] [place] [address], [place] [address] August, [facility] [address] [id number] [address] [place] [address], [place] [address] August, [facility] [address] [id number] [address] [place] [address], [place] [address] August, [facility] [address] [id number] [address] [place] [address], [place] [address] August, [facility] [address] [id number] [address] [place] [address], [place] [address] August, [facility] [address] [id number] [address] [place] [address], [place] [address] Jul, [facility] [address] [id number] [address] [place] [address], [place] [address] Jul, [facility] [address] [id number] [address] [place] [address], [place] [address] 15 Jul, 2012 [facility] [address] [id number] [address] [place] [address], [place] [address] Jul, [facility] [address] [id number] [address] [place] [address], [place] [address] Jul, [facility] [address] [id number] [address] [place] [address], [place] [address] Jul, [facility] [address] [id number] [address] [place] [address] Jul, [facility] [address] [id number] [address] [place] [address], [place] [address] Jul, [facility] [address] [id number] [address] [place] [address] Jul, [facility] [address] [id number] [address] [place] [address], [place] [address] Jul, [facility] [address] [id number] [id number] Jun, [facility] [address] [id number] [address] [place] [address], [place] [address] Jun, [facility] [address] [id number] [address] [place] [address], [place] [address] Jun, [facility] [address] [id number] [address] [place] [address], [place] [address] Jun, [facility] [address] [id number] [address] [place] [address], [place] [address] Jun, [facility] [address] [id number] [address] [place] [address], [place] [address] May, [facility] [address] [id number] [address] [place] [address], [place] [address] May, [facility] [address] [id number] [address] [place] [address], [place] [address] May, [facility] [address] [id number] [address] [place] [address], [place] [address] Apr, [facility] [address] [id number] [address] [place] [address], [place] [address] Apr, [facility] [address] [id number] [address] [place] [address], [place] [address] Apr, [facility] [address] [id number] [address] [place] [address], [place] [address] Apr, [facility] [address] [id number] [address] [place] [address], [place] [address] Apr, [facility] [address] [id number] [address] [place] [address], [place] [address] Apr, [facility] [address] [id number] [address] [place] [address], [place] [address] Mar, [facility] [address] [id number] [address] [place] [address], [place] [address] Mar, [facility] [address] [id number] [address] [place] [address], [place] [address] Mar, [facility] [address] [id number] [address] [place] [address], [place] [address] Mar, [facility] [address] [id number] [address] [place] [address], [place] [address] Feb, [facility] [address] [id number] [address] [place] [address], [place] [address] Feb, [facility] [address] [id number] [address] [place] [address], [place] [address] Feb, [facility] [address] [id number] [address] [place] [address], [place] [address] Feb, [facility] [address] [id number] [address] [place] [address], [place] [address] Feb, [facility] [address] [id number] [address] [place] [address], [place] [address] Feb, [facility] [address] [id number] [address] [place] [address], [place] [address] Feb, [facility] [address] [id number] [address] [place] [address], [place] [address] Feb, [facility] [address] [id number] [address] [place] [address], [place] [address] Feb, [facility] [address] [id number] [address] [place] [address], [place] [address] Feb, [facility] [address] [id number] [address] [place] [address], [place] [address] Feb, [facility] [address] [id number] [address] [place] [address], [place] [address] Feb, [facility] [address] [id number] [address] [place] [address], [place] [address] Feb, [facility] [address] [id number] [address] [place] [address], [place] [address] Feb, [facility] [address] [id number] [address] [place] [address], [place] [address] Feb, [facility] [address] [id number] [address] [place] [address], [place] [address] Feb, [facility] [address] [id number] [address] [place] [address], [place] [address] Jan, [facility] [address] [id number] [address] [place] [address], [place] [address] Jan, [facility] [address] [id number] [address] [place] [address], [place] [address] Jan, [facility] [address] [id number] [address] [place] [address] Jan, [facility] [address] [id number] [address] [place] [address], [place] [address] 30 Jan, 2012 [facility] [address] [id number] [address] [place] [address] Jan, [facility] [address] [id number] [address] [place] [address], [place] [address] Jan, [facility] [address] [id number] [address] [place] [address], [place] [address] Jan, [facility] [address] [id number] [address] [place] [address], [place] [address] Jan, [facility] [address] [id number] [address] [place] [address] [place] [address] 15 Jan, 2012 [facility] [address] [id number] [address] [place] [address], [place] [address] 15 Jan, 2012 [facility] [address] [id number] [address] [place] [address], [place] [address] Jan, [facility] [address] [id number] [address] [place] [address], [place] [address] 26 Sep, 2011 [facility] [address] [id number] [address] [place] [address], [place] [address] 26 Sep, 2011 [facility] [address] [id number] [address] [place] [address], [place] [address] 24 Sep, 2011 [facility] [address] [id number] [address] [place] [address], [place] [address] 23 Sep, 2011 [facility] [address] [id number] [address] [place] [address], [place] [address] 22 Sep, 2011 [facility] [address] [id number] [address] [place] [address], [place] [address] 21 Sep, 2011 [facility] [address] [id number] [address] [place] [address], [place] [address] 20 Sep, 2011 [facility] [address] [id number] [address] [place] [address], [place] [address] 20 Sep, 2011 [facility] [address] [id number] [address] [place] [address], [place] [address] 07 Sep, 2011 [facility] [address] [id number] [address] [place] [address], [place] [address] 06 Sep, 2011 [facility] [address] [id number] [address] [place] [address], [place] [address] 06 Sep, 2011 [facility] [address] [id number] [address] [place] [address], [place] [address] 05 Sep, 2011 [facility] [address] [id number] [address] [place] [address], [place] [address] 23 Nov, 2011 [facility] [address] [id number] [facility] [place] [address] 17 Nov, 2011 [facility] [address] [id number] [address] [place] [address], [place] [address] Nov, [facility] [address] [id number] [address] [place] [address], [place] [address] Nov, [facility] [address] [id number] [address] [place] [address], [place] [address] Nov, [facility] [address] [id number] [address] [place] [address], [place] [address] Nov, [facility] [address] [id number] [address] [place] [address], [place] [address] Nov, [facility] [address] [id number] [address] [place] [address], [place] [address] Nov, [facility] [address] [id number] [address] [place] [address], [place] [address] 30 Oct, 2011 [facility] [address] [id number] [address] [place] [address], [place] [address] Oct, [facility] [address] [id number] [address] [place] [address], [place] [address] Oct, [facility] [address] [id number] [address] [place] [address], [place] [address] Oct, [facility] [address] [id number] [address] [place] [address], [place] [address] Oct, [facility] [address] [id number] [address] [place] [address], [place] [address] 16 Oct, 2011 [facility] [address] [id number] [address] [place] [address], [place] [address] Oct, [facility] [address] [id number] [address] [place] [address], [place] [address] Sep, [facility] [address] [id number] [address] [place] [address], [place] [address] Sep, [facility] [address] [id number] [address] [place] [address], [place] [address] August, [facility] [address] [id number] [address] [place] [address], [place] [address] August, [facility] [address] [id number] [address] [place] [address], [place] [address] August, [facility] [address] [id number] [address] [place] [address], [place] [address] August, [facility] [address] [id number] [address] [place] [address], [place] [address] Jul, [facility] [address] [id number] [address] [place] [address], [place] [address] Jul, [facility] [address] [id number] [address] [place] [address], [place] [address] Jul, [facility] [address] [id number] [address] [place] [address], [place] [address] Jul, [facility] [address] [id number] [address] [place] [address], [place] [address] Jul, [facility] [address] [id number] [address] [place] [address], [place] [address] Jul, [facility] [address] [id number] [address] [place] [address], [place] [address] Jul, [facility] [address] [id number] [address] [place] [address], [place] [address] Jul, [facility] [address] [id number] [address] [place] [address], [place] [address] Jul, [facility] [address] [id number] [address] [place] [address], [place] [address] Jun, [facility] [address] [id number] [address] [place] [address], [place] [address] Jun, [facility] [address] [id number] [address] [place] [address], [place] [address] 15 Jun, 2011 [facility] [address] [id number] [address] [place] [address], [place] [address] 14 Jun, 2011 [facility] [address] [id number] [address] [place] [address], [place] [address] 12 Jun, 2011 [facility] [address] [id number] [address] [place] [address], [place] [address] 09 Jun, 2011 [facility] [address] [id number] [address] [place] [address], [place] [address] 09 Jun, 2011 [facility] [address] [id number] [address] [place] [address], [place] [address] 25 May, 2011 [facility] [address] [id number] [address] [place] [address], [place] [address] 24 May, 2011 [facility] [address] [id number] [address] [place] [address], [place] [address] 16 May, 2011 [facility] [address] [id number] [address] [place] [address], [place] [id number] 16 May, 2011 [facility] [address] [id number] [address] [place] [address], [place] [id number] May, [facility] [address] [id number] [address] [place] [address], [place] [id number] Apr, [facility] [address] [id number] [address] [place] [address], [place] [id number] Apr, [facility] [address] [id number] [address] [place] [address], [place] [id number] Apr, [facility] [address] [id number] [address] [place] [address], [place] [id number] Apr, [facility] [address] [id number] [address] [place] [address], [place] [address] Apr, [facility] [address] [id number] [address] [place] [address], [place] [id number] Mar, [facility] [address] [id number] [address] [place] [address], [place] [id number] Mar, [facility] [address] [id number] [address] [place] [address], [place] [address] Mar, [facility] [address] [id number] [address] [place] [address], [place] [id number] Mar, [facility] [address] [id number] [address] [place] [address], [place] [address] Mar, [facility] [address] [id number] [address] [place] [address], [place] [address] Mar, [facility] [address] [id number] [address] [place] [address], [place] [address] Mar, [facility] [address] [id number] [address] [place] [address], [place] [address] Feb, [facility] [address] [id number] [address] [place] [address], [place] [id number] Feb, [facility] [address] [id number] [address] [place] [address], [place] [address] Feb, [facility] [address] [id number] [address] [place] [phone] Feb, [facility] [address] [id number] [address] [place] [address], [place] [address] Jan, [facility] [address] [id number] [address] [place] [id number] Jan, [facility] [address] [id number] [address] [place] [address], [place] [id number] Jan, [facility] [address] [id number] [address] [place] [address], [place] [address] Jan, [facility] [address] [id number] [address] [place] [address], [place] [address] Nov, [facility] [address] [id number] [address] [place] [id number] 30 Mar, 2010 [facility] [place] [address] [id number] [address] [place] [id number] Mar, [facility] [place] [address] [id number] [address] [place] [id number] Mar, [facility] [place] [address] [id number] [address] [place] [id number] Mar, [facility] [place] [address] [id number] [address] [place] [id number] Mar, [facility] [place] [address] [id number] [address] [place] [id number] Mar, [facility] [place] [address] [id number] [address] [place] [id number] Feb, [facility] [place] [address] [id number] [address] [place] [id number] Feb, [facility] [place] [address] [id number] [address] [place] [id number] Jan, [facility] [place] [address] [id number] [address] [place] [id number] Jan, [facility] [place] [address] [id number] [address] [place] [id number] Jan, IMMUNIZATIONS No Known Immunizations SOCIAL HISTORY Never Assessed REASON FOR VISIT PLAN OF CARE VITAL SIGNS Blood pressure systolic 136 mmHg 2014-06-04 Blood pressure diastolic 84 mmHg 2014-06-04 MEDICATIONS Unknown Medications RESULTS No Results PROCEDURES Procedure Date Ordered Result Body Site X-RAY EXAM OF ANKLE Jun 04, 2014 DRAIN/INJECT, JOINT/BURSA Jun 04, 2014 INSTRUCTIONS MEDICATIONS ADMINISTERED No Known Medications [...] meningitis December [address] [facility] psych for SI 1988 Hospitalization History [facility]-Altered mental status 05/2017 Hospitalization History sepsis, UTI, headache 08/03/2018-
--- OUTSIDE RECORDS SUMMARY | 2019-08-01 10:16 | XMS REPORT ---
Author Author Lola Tyson Doctor Organization [facility] Address Unknown Phone Unavailable Care Team Providers Care Senior Account Representative Name Role Phone Migration, Doctor Unavailable Unavailable PROBLEMS Type Condition ICD9-CM Code AEH12-DO Code Onset Dates Condition S tatus SNOMED Code Problem Hypothyroid E03.9 Active 53551614 Problem Asthma J45.909 Active 713076152 Problem Insomnia G47.00 Active 921423526 Problem Depressed F32.9 Active 19409700 Problem Palpitations R00.2 Active 3728458 2 Problem Functional diarrhea K59.1 Active 61385474 Problem Chronic kidney disease, stage 4 (severe) N18.4 Active 494530566 Problem Degenerative tear of medial meniscus of left knee M23.204 Active 650820043 Problem Dysthymic disorder F34.1 Active 7 3122471 Problem Bipolar disorder, current episode manic without psychotic features F31.10 Active 079858396 Problem Generalized anxiety disorder F41.1 A ctive 28501468 Problem Restless leg G25.81 Active 3471258 8 Problem Coronary artery disease invo lving torres martinez coronary artery of torres martinez heart, angina presence unspecified I25.10 Active 0909378980875 Problem Hypokalemia E87.6 Active 67071884 Problem Other seasonal allergic rhinitis J30.2 Active 372699277 Problem Mixed stress and urge urinary incontinence N39.46 Active 201782290 Problem Fibromyalgia M79.7 Active 1446294 05 Problem Essential (primary) hypertension I10 Active 96338698 Problem Long-term use of high-risk medication Z79.899 Active 282700304 Problem Vitamin D deficiency E55.9 Active 45545772 Problem Anemia in chronic kidney disease D63.1 Active 199204852610684 Problem Low back pain M54.5 Active 529081 009 Problem Chronic kidney disease, unspecified N18.9 Active 681550494 Problem Abnormal chest CT R93.8 Active 44 4752170 Problem Primary osteoarthritis of left knee M17.12 Active 309513641 Problem Mood disorder F39 Active 334299 05 Problem Stage 3 chronic kidney disease N18.3 Active 752153645 Problem Perimenopausal vasomotor symptoms N95.1 Active 746143432 Problem Asthma with acute exacerbation in adult J45.901 Active 866660261 Problem Other chronic pain G89.29 Active 8 9657659 Problem History of colon polyps Z86.010 Active 052029832 Problem History of anemia Z86.2 Active 27 9563661 Problem Body mass index (BMI) of 40.0-44.9 in adult Z68.41 Active 380571980 Problem Seasonal allergic rhinitis due to pollen J30.1 Active 97896308 Problem Restless leg syndrome G25.81 Active 03863820 Problem Chronic pain syndrome G89.4 Active 847550066 ALLERGIES No Information ENCOUNTERS Encounter Location Date Diagnosis [facility] [address] [facility] [id number] [address] [place] [id number] Nov, [facility] [address] [facility] [id number] [address] [place] [id number] Oct, [facility] [address] [facility] [id number] [address] [place] [id number] Oct, [facility] [address] [facility] [id number] [address] [place] [id number] Oct, [facility] [address] [facility] [id number] [address] [place] [id number] Oct, Chronic pain syndrome G89.4 [facility] [address] [facility] [id number] [address] [place] [id number] Oct, Chronic pain syndrome G89.4 [facility] [address] [facility] [id number] [address] [place] [id number] Oct, UTI symptoms R39.9 ; Acute c ystitis without hematuria N30.00 and Morbid obesity E66.01 [facility] [address] [facility] [id number] [address] [place] [id number] Oct, [facility] [address] [facility] [id number] [address] [place] [id number] Oct, Chronic pain syndrome G89.4 [facility] [address] [facility] [id number] [address] [place] [id number] Sep, [facility] [address] [facility] [id number] [address] [place] [id number] Sep, Generalized anxiety disorder F41.1 and Major depressive disorder, recurrent episode with anxious distress F33.9 [facility] [address] [facility] [id number] [address] [place] [id number] 17 Sep, 2018 Chronic kidney disease, stag e 4 (severe) N18.4 [facility] [address] [facility] [id number] [address] [place] [id number] Sep, Fibromyalgia M79.7 and Chron ic pain syndrome G89.4 [place] [address] [facility] [id number] [address] [place] [id number] Sep, [address] [id number] Sep, Chronic pain syndrome G89.4 [place] [address] [facility] [id number] [address] [place] [id number] Sep, [facility] [address] [facility] [id number] [address] [place] [id number] Sep, Chronic pain syndrome G89.4 ; Fibromyalgia M79.7 and Morbid obesity E66.01 [facility] [address] [facility] [id number] [address] [place] [id number] August, Generalized anxiety disorder F41.1 and Major depressive disorder, recurrent episode with anxious distress F33.9 [place] [address] [facility] [id number] [address] [place] [id number] August, Fibromyalgia M79.7 [place] [address] [facility] [id number] [address] [place] [id number] August, Restless leg syndrome G25.81 ; Vitamin D deficiency E55.9 ; Urinary tract infection without hematuria, site unspecified N39.0 ; Pain in right shoulder M25.511 ; Other chronic pain G89.29 ; Biceps tendinitis on right M75.21 and Morbid obesity E66.01 [facility] [address] [id number] [address] [place] [id number] Jul, Urinary tract infection with out hematuria, site unspecified N39.0 and Morbid obesity E66.01 [facility] [address] [id number] [address] [place] [id number] Jul, [facility] [address] [id number] [address] [place] [id number] Jul, [facility] [address] [id number] [address] [place] [id number] Jul, Fibromyalgia M79.7 [facility] [address] [id number] [address] [place] [id number] Jul, Acute pain of right shoulder M25.511 [facility] [address] [id number] [address] [place] [id number] Jul, Acute pain of right shoulder M25.511 and Morbid obesity E66.01 [facility] [address] [id number] [address] [place] [id number] Jun, [facility] [address] [facility] [id number] [address] [place] [phone] Jun, Generalized anxiety disorder F41.1 and Major depressive disorder, recurrent episode with anxious distress F33.9 [facility] [address] [id number] [address] [place] [id number] Jun, [facility] [address] [facility] [id number] [address] [place] [id number] Jun, Fibromyalgia M79.7 [facility] [address] [id number] [address] [place] [id number] Jun, Acute pain of right shoulder M25.511 ; Acute pain of right hip M25.551 and Morbid obesity E66.01 [facility] [address] [id number] [address] [place] [id number] May, Burning with urination R30.0 ; Vaginal discharge N89.8 ; Chronic kidney disease, stage 4 (severe) N18.4 ; Body mass index (BMI) of 40.0-44.9 in adult Z68.41 and Morbid obesity E66.01 [facility] [address] [facility] [id number] [address] [place] [id number] 07 May, 2018 Fibromyalgia M79.7 [facility] [address] [facility] [id number] [address] [place] [id number] 06 May, 2018 Generalized anxiety disorder F41.1 and Major depressive disorder, recurrent episode with anxious distress F33.9 [facility] [address] [facility] [id number] [address] [place] [id number] 24 Apr, 2018 [facility] [address] [facility] [id number] [address] [place] [id number] 08 Apr, 2018 Fibromyalgia M79.7 [facility] [address] [facility] [id number] [address] [place] [id number] 14 Mar, 2018 Acute UTI N39.0 and Dysuria R30.0 [facility] [address] [facility] [id number] [address] [place] [id number] 10 Mar, 2018 Fibromyalgia M79.7 [facility] [address] [facility] [id number] [address] [place] [id number] 15 Feb, 2018 [facility] [address] [facility] [id number] [address] [place] [phone] Feb, [facility] [address] [facility] [id number] [address] [place] [id number] Feb, [facility] [address] [facility] [id number] [address] [place] [id number] Feb, Fibromyalgia M79.7 [facility] [address] [facility] [id number] [address] [place] [id number] 08 Feb, 2018 Complicated UTI (urinary tra ct infection) N39.0 [facility] [address] [facility] [id number] [address] [place] [id number] Feb, [facility] [address] [facility] [id number] [address] [place] [id number] Jan, Generalized anxiety disorder F41.1 and Major depressive disorder, recurrent episode with anxious distress F33.9 [facility] [address] [id number] [address] [place] [id number] Jan, Acute conjunctivitis of left eye, unspecified acute conjunctivitis type H10.32 [facility] [address] [facility] [id number] [address] [place] [id number] Jan, [facility] [address] [facility] [id number] [address] [place] [id number] Jan, Acute non-recurrent maxillar y sinusitis J01.00 ; Dysuria R30.0 ; Perimenopausal vasomotor symptoms N95.1 and Fibromyalgia M79.7 [facility] [address] [facility] [id number] [address] [place] [id number] Dec, Vitamin D deficiency E55.9 [facility] [address] [facility] [id number] [address] [place] [phone] Dec, Vitamin D deficiency E55.9 [facility] [address] [facility] [id number] [address] [place] [id number] 24 Dec, 2017 Vitamin D deficiency E55.9 [facility] [address] [facility] [id number] [address] [place] [id number] Dec, [facility] [address] [facility] [id number] [address] [place] [id number] Dec, Fibromyalgia M79.7 [facility] [address] [id number] [address] [place] [id number] Nov, [facility] [address] [facility] [id number] [address] [place] [id number] Nov, [facility] [address] [facility] [id number] [address] [place] [id number] Nov, [facility] [address] [id number] [address] [place] [id number] Nov, Fibromyalgia M79.7 ; Vision changes H53.9 ; Chest wall pain R07.89 and Chronic pain syndrome G89.4 [facility] [address] [id number] [address] [place] [id number] Nov, [facility] [address] [id number] [address] [place] [id number] Nov, Rash of hands R21 [facility] [address] [id number] [address] [place] [id number] Nov, Generalized anxiety disorder F41.1 and Major depressive disorder, recurrent episode with anxious distress F33.9 [facility] [address] [id number] [address] [place] [id number] Nov, Fibromyalgia M79.7 [facility] [address] [id number] [address] [place] [id number] Nov, Complicated UTI (urinary tra ct infection) N39.0 [facility] [address] [id number] [address] [place] [id number] Oct, [facility] [address] [id number] [address] [place] [id number] Oct, Generalized anxiety disorder F41.1 and Major depressive disorder, recurrent episode with anxious distress F33.9 [facility] [address] [id number] [address] [place] [id number] Oct, [facility] [address] [id number] [address] [place] [id number] Oct, Fibromyalgia M79.7 [facility] [address] [id number] [address] [place] [id number] Sep, Restless leg syndrome G25.81 and Restless leg G25.81 [facility] [address] [id number] [address] [place] [id number] Sep, [facility] [id number] [place] [id number] Sep, Seasonal allergic rhinitis d ue to pollen J30.1 ; Screening for breast cancer Z12.31 ; Chest pain at rest R07.9 ; Restless leg syndrome G25.81 ; Essential (primary) hypertension I10 and Depressed F32.9 [facility] [id number] [place] [id number] August, Fibromyalgia M79.7 [facility] [address] [place] [id number] [place] [id number] August, [facility] [address] [place] [id number] [place] [phone] August, [facility] [address] [place] [id number] [place] [phone] August, Abnormal chest CT R93.8 [place] [address] [id number] August, Generalized anxiety disorder F41.1 and Major depressive disorder, recurrent episode with anxious distress F33.9 [facility] [address] [place] [id number] [address] [place] [phone] August, Abnormal chest CT R93.8 [facility] [address] [place] [id number] [place] [phone] Jul, [place] [address] [id number] Jul, Chronic kidney disease, stag e 4 (severe) N18.4 [facility] [address] [place] [id number] [address] [place] [id number] Jul, [facility] [address] [place] [id number] [place] [id number] Jul, Restless leg G25.81 ; Mixed stress and urge urinary incontinence N39.46 and Fibromyalgia M79.7 [facility] [address] [place] [id number] [address] [place] [id number] Jul, Chronic kidney disease, stag e 4 (severe) N18.4 [facility] [address] [facility] [id number] [address] [place] [id number] Jun, Orthostatic hypotension I95. 1 ; Chronic kidney disease, stage 4 (severe) N18.4 ; Chest wall discomfort R07.89 and Body mass index (BMI) of 40.0- 44.9 in adult Z68.41 [facility] [address] [facility] [id number] [address] [place] [phone] Jun, [facility] [address] [facility] [id number] [address] [place] [id number] Jun, Orthostatic hypotension I95. 1 [facility] [address] [place] [id number] [address] [place] [id number] Jun, [facility] [address] [facility] [id number] [address] [place] [id number] Jun, Orthostatic hypotension I95. 1 ; Dysuria R30.0 and Acute cystitis without hematuria N30.00 [facility] [address] [facility] [id number] [address] [place] [id number] Jun, [facility] [address] [place] [id number] [address] [place] [id number] Jun, Chronic kidney disease, stag e 4 (severe) N18.4 [facility] [address] [place] [id number] [address] [place] [id number] Jun, Fibromyalgia M79.7 [facility] [address] [facility] [id number] [address] [place] [id number] Jun, [facility] [address] [place] [id number] [address] [place] [id number] Jun, [facility] [address] [place] [id number] [address] [place] [id number] May, Abnormal chest [address] R93.8 and Stage 3 chronic kidney disease N18.3 [facility] [address] [place] [id number] [address] [place] [id number] May, Chronic kidney disease, stag e 4 (severe) N18.4 [facility] [address] [id number] [address] [place] [id number] May, Chronic kidney disease, stag e 4 (severe) N18.4 [facility] [address] [id number] [address] [place] [id number] May, Abnormal chest [address] R93.8 [facility] [address] [id number] [address] [place] [id number] May, [facility] [address] [id number] [address] [place] [id number] May, [facility] [address] [facility] [id number] [address] [place] [id number] May, Generalized anxiety disorder F41.1 and Major depressive disorder, recurrent episode with anxious distress F33.9 [facility] [address] [id number] [address] [place] [id number] May, Mood disorder F39 [facility] [address] [id number] [address] [place] [id number] Apr, [facility] [address] [id number] [address] [place] [id number] Apr, Infected skin lesion L08.9 a nd Muscle strain of right shoulder region, initial encounter S46.911A [facility] [address] [id number] [address] [place] [id number] Apr, Generalized anxiety disorder F41.1 and Major depressive disorder, recurrent episode with anxious distress F33.9 [facility] [address] [id number] [address] [place] [id number] Apr, [facility] [address] [facility] [id number] [address] [place] [id number] Apr, Recent urinary tract infecti on Z87.440 and Hypothyroid E03.9 [facility] [address] [id number] [address] [place] [id number] Apr, Generalized anxiety disorder F41.1 and Major depressive disorder, recurrent episode with anxious distress F33.9 [facility] [address] [id number] [address] [place] [id number] Apr, Recent urinary tract infecti on Z87.440 [facility] [address] [id number] [address] [place] [id number] Mar, [facility] [address] [id number] [address] [place] [id number] Mar, Dysuria R30.0 ; Acute cystit is without hematuria N30.00 and BMI 40.0-44.9, adult Z68.41 [facility] [address] [facility] [id number] [address] [place] [id number] Mar, [facility] [address] [id number] [address] [place] [id number] Mar, [facility] [address] [id number] [address] [place] [id number] Mar, Generalized anxiety disorder F41.1 and Major depressive disorder, recurrent episode with anxious distress F33.9 [facility] [address] [id number] [address] [place] [id number] 29 Feb, 2017 Conjunctivitis, bacterial H1 0.9 [facility] [address] [id number] [address] [place] [id number] 27 Feb, 2017 [facility] [address] [id number] [address] [place] [phone] Feb, Conjunctivitis, bacterial H1 0.9 [facility] [address] [facility] [id number] [address] [place] [id number] 15 Feb, 2017 [facility] [address] [facility] [id number] [address] [place] [id number] 10 Feb, 2017 Dysuria R30.0 ; Acute cystit is N30.00 and BMI 40.0-44.9, adult Z68.41 [place] [address] [phone] Feb, [place] [address] [place] [id number] [place] [phone] Feb, Generalized anxiety disorder F41.1 and Major depressive disorder, recurrent episode with anxious distress F33.9 [place] [address] [place] [id number] [place] [id number] Feb, Mood disorder F39 and BMI 40 .0-44.9, adult Z68.41 [place] [address] [phone] Jan, [place] [address] [id number] Jan, [place] [address] [id number] Jan, Hypothyroid E03.9 [place] [address] [id number] Jan, [place] [address] [address] Jan, Chronic kidney disease, unsp ecified N18.9 ; Hypokalemia E87.6 ; Essential (primary) hypertension I10 ; Fibromyalgia M79.7 ; Coronary artery disease involving torres martinez coronary artery of torres martinez heart, angina presence unspecified I25.10 ; Hypothyroid E03.9 and Encounter for immunization Z23 [place] [address] [id number] Jan, Hypothyroid E03.9 [place] [address] [place] [id number] [place] [phone] Jan, [place] [address] [place] [id number] [place] [id number] Dec, Vitamin D deficiency E55.9 [facility] [address] [id number] [address] [place] [id number] 28 Dec, 2017 Primary osteoarthritis of le ft knee M17.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 [facility] [address] [id number] [address] [place] [id number] 19 Dec, 2016 Fibromyalgia M79.7 [facility] [address] [id number] [address] [place] [id number] 18 Dec, 2016 Mood disorder F39 [facility] [address] [facility] [id number] [address] [place] [id number] 13 Dec, 2016 [place] [address] [id number] [address] [place] [id number] 13 Dec, 2016 Generalized anxiety disorder F41.1 and Major depressive disorder, recurrent episode with anxious distress F33.9 [facility] [address] [id number] [address] [place] [id number] 11 Dec, 2016 [place] [address] [id number] [address] [place] [id number] 08 Dec, 2016 Streptococcal meningitis G00 .2 [place] [address] [id number] [address] [place] [id number] 07 Dec, 2016 Streptococcal meningitis G00 .2 [facility] [address] [id number] [address] [place] [id number] 07 Dec, 2016 [facility] [address] [id number] [address] [place] [id number] 06 Dec, 2016 Streptococcal meningitis G00 .2 [facility] [address] [id number] [address] [place] [id number] 06 Dec, 2016 [facility] [address] [facility] [id number] [address] [place] [id number] 06 Dec, 2016 Major depressive disorder, r ecurrent episode with anxious distress F33.9 [facility] [address] [id number] [address] [place] [id number] Nov, Fever, unspecified fever cau se R50.9 [facility] [address] [id number] [address] [place] [id number] Nov, [facility] [address] [facility] [id number] [address] [place] [id number] Nov, Hypothyroid E03.9 [facility] [address] [id number] [address] [place] [id number] Nov, Generalized anxiety disorder F41.1 and Major depressive disorder, recurrent episode with anxious distress F33.9 [facility] [address] [id number] [address] [place] [id number] Nov, [facility] [address] [id number] [address] [place] [id number] Oct, Dental examination Z01.20 [facility] [address] [facility] [id number] [address] [place] [id number] Oct, Generalized anxiety disorder F41.1 and Major depressive disorder, recurrent episode with anxious distress F33.9 [facility] [address] [facility] [id number] [address] [place] [id number] Oct, Chronic kidney disease, stag e 4 (severe) N18.4 [facility] [address] [facility] [id number] [address] [place] [id number] Oct, [facility] [address] [facility] [id number] [address] [place] [id number] Oct, Fibromyalgia M79.7 [facility] [address] [id number] [address] [place] [id number] Oct, [facility] [address] [facility] [id number] [address] [place] [id number] Oct, Generalized anxiety disorder F41.1 ; Major depressive disorder, recurrent episode with anxious distress F33.9 and Bipolar disorder, current episode manic without psychotic features F31.10 [facility] [address] [facility] [id number] [address] [place] [id number] Sep, [facility] [address] [facility] [id number] [address] [place] [phone] Sep, [facility] [address] [facility] [id number] [address] [place] [id number] 15 Sep, 2016 Vitamin D deficiency E55.9 [facility] [address] [facility] [id number] [address] [place] [id number] 14 Sep, 2016 Vitamin D deficiency E55.9 [facility] [address] [facility] [id number] [address] [place] [phone] Sep, [place] [address] [place] [id number] [address] [place] [id number] 07 Sep, 2016 Chronic kidney disease, stag [...] examination Z12.39 and Low back pain M54.5 [facility] [address] [facility] [id number] [address] [place] [phone] August, Generalized anxiety disorder F41.1 and Major depressive disorder, recurrent episode with anxious distress F33.9 [place] [address] [place] [id number] [address] [place] [phone] August, Generalized anxiety disorder F41.1 and Major depressive disorder, recurrent episode with anxious distress F33.9 [place] [address] [facility] [id number] [address] [place] [phone] August, Fibromyalgia M79.7 [facility] [address] [facility] [id number] [address] [place] [phone] 07 Jul, 2016 Generalized anxiety disorder F41.1 and Major depressive disorder, recurrent episode with anxious distress F33.9 [place] [address] [place] [id number] [address] [place] [id number] Jul, Fibromyalgia M79.7 [place] [address] [phone] Jul, Generalized anxiety disorder F41.1 [place] [address] [phone] May, [place] [address] [address] May, Hypothyroid E03.[address] [address] May, Chronic kidney disease, stag e 4 [...] torres martinez heart, angina presence unspecified I25.10 [place] [address] [address] May, Vitamin D deficiency, unspec ified E55.[address] [address] May, Generalized anxiety disorder F41.1 and Major depressive disorder, recurrent episode with anxious distress F33.[address] [address] Apr, Pain in right knee M25.561 a nd Pain in left knee M25.562 [place] [address] [address] Apr, [place] [address] [address] Apr, [facility] [address] [facility] [id number] [address] [place] [id number] Apr, [facility] [address] [facility] [id number] [address] [place] [id number] Mar, Generalized anxiety disorder F41.1 and Major depressive disorder, recurrent episode with anxious distress F33.9 [facility] [address] [place] [id number] [address] [place] [id number] Mar, Generalized anxiety disorder F41.1 and Major depressive disorder, recurrent episode with anxious distress F33.9 [facility] [address] [facility] [id number] [address] [place] [phone] Mar, [facility] [address] [place] [id number] [address] [place] [phone] Mar, [place] [address] [place] [id number] [address] [place] [phone] Mar, [facility] [address] [place] [id number] [address] [place] [address] Mar, Asthma J45.909 and Fibromyal elvira M79.7 [place] [address] [place] [id number] [address] [place] [id number] Mar, Chronic kidney disease, stag e 4 (severe) N18.4 ; Vitamin D deficiency E55.9 and Essential (primary) hypertension I10 [place] [address] [facility] [id number] [address] [place] [phone] Feb, [facility] [address] [place] [id number] [address] [place] [id number] Feb, Dysuria R30.0 ; Mixed stress and urge urinary incontinence N39.46 ; Fibromyalgia M79.7 and Chronic kidney disease, stage IV (severe) N18.4 [facility] [address] [place] [id number] [address] [place] [id number] Feb, Chronic kidney disease, stag e 4 (severe) N18.4 [facility] [address] [facility] [id number] [address] [place] [id number] Feb, Chronic kidney disease, stag e 4 (severe) N18.4 [facility] [address] [facility] [id number] [address] [place] [phone] Feb, [facility] [address] [facility] [id number] [address] [place] [id number] Feb, Vitamin D deficiency, unspec ified E55.9 [facility] [address] [facility] [id number] [address] [place] [id number] Jan, [place] [address] [facility] [id number] [address] [place] [phone] Jan, [place] [address] [facility] [id number] [address] [place] [phone] Dec, [place] [address] [place] [id number] [address] [place] [id number] Dec, Chronic kidney disease, stag e 4 (severe) N18.4 [place] [address] [facility] [id number] [address] [place] [address] Dec, Dysthymic disorder F34.1 and Generalized anxiety disorder F41.1 [place] [address] [place] [id number] [address] [place] [phone] Dec, [place] [address] [place] [id number] [address] [place] [id number] Dec, [place] [address] [place] [id number] [address] [place] [id number] Dec, Dysthymic disorder F34.1 and Generalized anxiety disorder F41.1 [place] [address] [place] [id number] [address] [place] [address] Dec, Dysuria R30.0 ; Chronic kidn ey disease, stage 4 (severe) N18.4 ; Hypertension I10 ; Dyspepsia R10.13 ; Yeast dermatitis B37.2 ; Palpitations R00.2 ; Hypothyroid E03.9 ; Functional diarrhea K59.1 and Other seasonal allergic rhinitis J30.2 [facility] [address] [address] Dec, [facility] [address] [place] [id number] [place] [phone] Nov, Dysuria R30.0 and Stress inc ontinence N39.3 [facility] [address] [address] Nov, [place] [address] [address] Nov, [place] [address] [address] Nov, Osteoarthritis of knees, jose ateral M17.0 [place] [address] [address] Nov, Dysthymic disorder F34.1 and Generalized anxiety disorder F41.1 [place] [address] [address] Nov, [place] [address] [address] Nov, [place] [address] [address] Nov, Urgency of urination R39.15 [place] [address] [address] Nov, [place] [address] [address] Nov, Chronic kidney disease, stag e 4 (severe) N18.4 [place] [address] [address] Oct, Hypertension I10 ; Coronary artery disease involving torres martinez coronary artery of torres martinez heart, angina presence unspecified I25.10 ; Palpitations R00.2 ; Hypothyroid E03.9 ; Right foot pain M79.671 ; Functional diarrhea K59.1 and Other seasonal allergic rhinitis J30.2 [place] [address] [address] Oct, Dysthymic disorder F34.1 and Generalized anxiety disorder F41.1 [place] [id number] [place] [phone] Sep, [place] [address] [address] Sep, [place] [address] [address] Sep, [place] [address] [place] [id number] [place] [address] Sep, [place] [address] [address] Sep, [place] [address] [address] Sep, Dysthymic disorder F34.1 and Generalized anxiety disorder F41.1 [place] [address] [address] Sep, Asthma with acute exacerbati on in adult J45.901 ; Dysuria R30.0 ; Chronic kidney disease, stage 4 (severe) N18.4 and History of anemia Z86.2 [place] [address] [address] 2015 Generalized anxiety disorder F41.1 and Dysthymic disorder F34.1 [place] [address] [address] August, Screening breast examination Z12.39 and Acute recurrent maxillary sinusitis J01.[address] [address] August, Osteoarthritis of knees, jose ateral M17.0 [place] [address] [facility] [id number] [address] [place] [address] August, Chronic kidney disease, stag e 4 (severe) N18.4 ; Acute non- recurrent maxillary sinusitis J01.00 ; Urinary problem R39.89 ; Bowel habit changes R19.4 ; Functional diarrhea K59.1 and History of colon polyps Z86.010 [place] [address] [facility] [id number] [address] [place] [address] Jul, Dysthymic disorder F34.1 and Generalized anxiety disorder F41.1 [place] [address] [facility] [id number] [address] [place] [address] Jul, [place] [address] [place] [id number] [place] [phone] Jul, Dysthymic disorder F34.1 ; G eneralized anxiety disorder F41.1 and custodial use of drug Z79.899 [place] [address] [facility] [id number] [address] [place] [address] Jul, [place] [address] [facility] [id number] [address] [place] [phone] Jun, [place] [address] [facility] [id number] [address] [place] [address] Jun, [place] [address] [place] [id number] [address] [place] [address] May, [place] [address] [facility] [id number] [address] [place] [address] May, Dysthymic disorder F34.1 and Generalized anxiety disorder F41.1 [place] [address] [facility] [id number] [address] [place] [address] Apr, Kidney disease N28.9 [place] [address] [facility] [id number] [address] [place] [address] Apr, Generalized anxiety disorder F41.1 and Dysthymic disorder F34.1 [place] [address] [place] [id number] [address] [place] [address] Apr, Chronic kidney disease, stag e 4 (severe) N18.4 [place] [address] [place] [id number] [address] [place] [address] Apr, Generalized anxiety disorder F41.1 ; Major depression, recurrent F33.9 and Sleep disturbance G47.9 [place] [address] [place] [id number] [address] [place] [address] Mar, Generalized anxiety disorder F41.1 and Dysthymic disorder F34.1 [place] [address] [place] [id number] [place] [address] Mar, Generalized anxiety disorder F41.1 ; Dysthymic disorder F34.1 and Insomnia G47.00 [place] [address] [address] Mar, [place] [address] [place] [id number] [address] [place] [address] Mar, [place] [address] [address] Mar, Osteoarthritis of knees, jose ateral M17.0 [place] [address] [place] [id number] [address] [place] [address] Mar, Hypertension I10 ; Hypothyro id E03.9 ; Dysthymic disorder F34.1 ; Chronic kidney disease, stage 4 (severe) N18.4 and Nausea & vomiting R11.2 [place] [address] [place] [id number] [address] [place] [address] Mar, Generalized anxiety disorder F41.1 ; Dysthymic disorder F34.1 and Insomnia G47.00 [place] [address] [place] [id number] [address] [place] [address] Mar, Dehydration E86.0 ; Chronic kidney disease, stage 4 (severe) N18.4 and Nausea & vomiting R11.2 [facility] [address] [place] [id number] [address] [place] [address] Mar, Gastroenteritis K52.9 [facility] [address] [place] [id number] [address] [place] [address] Mar, [facility] [address] [address] Mar, [facility] [address] [address] Feb, Dysthymic disorder F34.1 and Generalized anxiety disorder F41.1 [place] [address] [address] Jan, UTI (urinary tract infection ) N39.0 ; Asthma J45.909 ; Coronary artery disease involving torres martinez coronary artery of torres martinez heart, angina presence unspecified I25.10 ; Hypertension I10 ; Hypothyroid E03.9 ; Vitamin D deficiency E55.9 ; Insomnia G47.00 ; Palpitations R00.2 ; Depressed F32.9 ; Restless leg G25.81 and Anxiety F41.9 [place] [address] [address] Jan, Dysthymic disorder F34.1 and Generalized anxiety disorder F41.1 [place] [address] [address] Jan, [place] [address] [address] Dec, [place] [address] [place] [id number] [address] [place] [address] Dec, Alkalosis 276.3 ; Chronic ki dney disease, Stage IV (severe) 585.4 ; Hyperpotassemia 276.7 ; Secondary hyperparathyroidism, renal 588.81 ; Proteinuria 791.0 ; Unspecified vitamin D deficiency 268.9 ; Anemia in chronic kidney disease 285.21 ; Other and unspecified hyperlipidemia 272.4 ; Hypertension, essential, benign 401.1 and Chronic kidney disease (CKD), stage III (moderate) 585.3 [facility] [address] [address] 16 Dec, 2014 [facility] [address] [address] 16 Dec, 2014 Depressive disorder, not els ewhere classified 311 and Generalized anxiety disorder 300.02 [place] [address] [address] Dec, [place] [address] [address] Dec, [place] [address] [address] Nov, Depressive disorder, not els ewhere classified 311 and Generalized anxiety disorder 300.02 [place] [address] [address] Nov, Arthritis of both knees 716. 96 [place] [address] [address] Nov, PAF (paroxysmal atrial fibri llation) 427.31 ; CAD (coronary artery disease) 414.00 ; Chest pain 786.50 and Chronic kidney disease (CKD) stage G4/A1, severely decreased glomerular filtration rate (GFR) between 15-29 mL/min/1.73 square meter and albuminuria creatinine ratio less than 30 mg/g 585.4 [place] [address] [address] Oct, Coronary atherosclerosis of unspecified type of vessel, torres martinez or graft 414.00 ; Chronic kidney disease, Stage IV (severe) 585.4 ; Hypertension 401.9 and Edema 782.3 [place] [address] [address] Oct, Depressive disorder, not els ewhere classified 311 and Generalized anxiety disorder 300.02 [place] [address] [address] Oct, Depressive disorder, not els ewhere classified 311 and Generalized anxiety disorder 300.02 [facility] [address] [address] Oct, [facility] [address] [address] Oct, [facility] [address] [address] Sep, [facility] [address] [address] Sep, Chronic kidney disease, Stag e IV (severe) 585.4 [place] [address] [address] Sep, [facility] [address] [address] Sep, Coronary atherosclerosis of unspecified type of vessel, torres martinez or graft 414.00 ; Hypertension 401.9 ; Edema 782.3 and Hypothyroidism 244.9 [facility] [address] [address] Sep, Coronary atherosclerosis of unspecified type of vessel, torres martinez or graft 414.00 ; Hypertension 401.9 ; Fibromyalgia 729.1 ; Edema 782.3 ; Hypothyroidism 244.9 and Anemia 285.9 [facility] [address] [address] Sep, Anxiety disorder, unspecifie d 300.00 and Depressive disorder, not elsewhere classified 311 [facility] [address] [address] Sep, [facility] [address] [address] August, Generalized anxiety disorder 300.02 [facility] [address] [address] August, Closed fracture of lateral m alleolus 824.2 [facility] [address] [id number] [address] [place] [address], [place] [address] 14 Jul, 2014 [facility] [address] [id number] [address] [place] [address], [place] [address] Jul, [facility] [address] [id number] [address] [place] [address], [place] [address] Jun, [facility] [address] [id number] [address] [place] [address], [place] [address] Jun, [facility] [address] [id number] [address] [place] [address], [place] [address] Jun, [facility] [address] [id number] [address] [place] [address], [place] [address] Jun, [facility] [address] [id number] [address] [place] [address], [place] [address] Jun, [facility] [address] [id number] [address] [place] [address], [place] [address] Jun, [facility] [address] [id number] [address] [place] [address], [place] [address] May, [facility] [address] [id number] [address] [place] [address], [place] [address] 19 May, 2014 [facility] [address] [id number] [address] [place] [address], [place] [address] 18 May, 2014 [facility] [address] [id number] [address] [place] [id number] 18 May, 2014 [facility] [address] [id number] [address] [place] [address], [place] [address] 16 May, 2014 [facility] [address] [id number] [address] [place] [address], [place] [address] 16 May, 2014 [facility] [address] [id number] [address] [place] [address], [place] [address] 13 May, 2014 [facility] [address] [id number] [address] [place] [address], [place] [address] 13 May, 2014 [facility] [address] [id number] [address] [place] [address], [place] [address] 10 May, 2014 [facility] [address] [id number] [address] [place] [address], [place] [address] 10 May, 2014 [facility] [address] [id number] [address] [place] [address], [place] [id number] Apr, [facility] [address] [id number] [address] [place] [address], [place] [id number] Apr, [facility] [address] [id number] [address] [place] [address], [place] [id number] Mar, [facility] [address] [id number] [address] [place] [address], [place] [id number] Mar, [facility] [address] [id number] [address] [place] [address], [place] [id number] Mar, [facility] [address] [id number] [address] [place] [address], [place] [id number] 15 Mar, 2014 [facility] [address] [id number] [address] [place] [address], [place] [id number] Mar, [facility] [address] [id number] [address] [place] [address], [place] [id number] 15 Mar, 2014 [facility] [address] [id number] [address] [place] [address], [place] [id number] Mar, [facility] [address] [id number] [address] [place] [address], [place] [id number] 24 Feb, 2014 [facility] [address] [id number] [address] [place] [address], [place] [id number] 24 Feb, 2014 [facility] [address] [id number] [address] [place] [address], [place] [id number] 17 Feb, 2014 [facility] [facility] [address] [id number] [address] [place] [address], [place] [address] Jan, [facility] [address] [id number] [address] [place] [address], [place] [address] Jan, [facility] [address] [id number] [address] [place] [address], [place] [address] Jan, [facility] [address] [id number] [address] [place] [address], [place] [address] Jan, [facility] [address] [id number] [address] [place] [address], [place] [address] Jan, [facility] [address] [id number] [address] [place] [address], [place] [address] Jan, [facility] [address] [id number] [address] [place] [address], [place] [address] Jan, [facility] [address] [id number] [address] [place] [address], [place] [address] Jan, [facility] [address] [id number] [address] [place] [address], [place] [address] Jan, [facility] [address] [id number] [address] [place] [address], [place] [address] Jan, [facility] [address] [id number] [address] [place] [address], [place] [address] Nov, [facility] [address] [id number] [address] [place] [address], [place] [address] Nov, [facility] [address] [id number] [address] [place] [address], [place] [address] Nov, [facility] [address] [id number] [address] [place] [address], [place] [address] Oct, [facility] [address] [id number] [address] [place] [address], [place] [address] Oct, [facility] [address] [id number] [address] [place] [address], [place] [address] Oct, [facility] [address] [id number] [address] [place] [address], [place] [address] Oct, [facility] [address] [id number] [address] [place] [address], [place] [address] Oct, [facility] [address] [id number] [address] [place] [address], [place] [address] Oct, [facility] [address] [id number] [address] [place] [address], [place] [address] Oct, [facility] [address] [id number] [address] [place] [address], [place] [address] Oct, [facility] [address] [id number] [address] [place] [address], [place] [address] Oct, [facility] [address] [id number] [address] [place] [address], [place] [address] Sep, [facility] [address] [id number] [address] [place] [address], [place] [address] Sep, [facility] [address] [id number] [address] [place] [address], [place] [address] Sep, [facility] [address] [id number] [address] [place] [address], [place] [address] Sep, [facility] [address] [id number] [address] [place] [address], [place] [address] Sep, [facility] [address] [id number] [address] [place] [address], [place] [address] Sep, [facility] [address] [id number] [address] [place] [address], [place] [address] Sep, [facility] [address] [id number] [address] [place] [address], [place] [address] Sep, [facility] [address] [id number] [address] [place] [address], [place] [address] Sep, [facility] [address] [id number] [address] [place] [address], [place] [address] August, [facility] [address] [id number] [address] [place] [address], [place] [address] August, [facility] [address] [id number] [address] [place] [address], [place] [address] August, [facility] [address] [id number] [address] [place] [address], [place] [address] August, [facility] [address] [id number] [address] [place] [address], [place] [address] August, [facility] [address] [id number] [address] [place] [address], [place] [address] August, [facility] [address] [id number] [address] [place] [address], [place] [address] Jul, [facility] [address] [id number] [address] [place] [address], [place] [address] Jul, [facility] [address] [id number] [address] [place] [address], [place] [address] Jul, [facility] [address] [id number] [address] [place] [address], [place] [address] Jul, [facility] [address] [id number] [address] [place] [address], [place] [address] Jul, [facility] [address] [id number] [address] [place] [address], [place] [address] Jul, [facility] [address] [id number] [address] [place] [address], [place] [address] Jun, [facility] [address] [id number] [address] [place] [address], [place] [address] Jun, [facility] [address] [id number] [address] [place] [address], [place] [address] May, [facility] [address] [id number] [address] [place] [address], [place] [address] May, [facility] [address] [id number] [address] [place] [address], [place] [address] May, [facility] [address] [id number] [address] [place] [address], [place] [address] May, [facility] [address] [id number] [address] [place] [address], [place] [address] Apr, [facility] [address] [id number] [address] [place] [address], [place] [address] Apr, [facility] [address] [id number] [address] [place] [address], [place] [address] Mar, [facility] [address] [id number] [address] [place] [address], [place] [address] 18 Mar, 2013 [facility] [address] [id number] [address] [place] [address], [place] [address] Mar, [facility] [address] [id number] [address] [place] [address], [place] [address] Mar, [facility] [address] [id number] [address] [place] [address], [place] [address] 05 Mar, 2013 [facility] [address] [id number] [address] [place] [address], [place] [address] 05 Mar, 2013 [facility] [address] [id number] [address] [place] [address], [place] [address] Feb, [facility] [address] [id number] [address] [place] [address], [place] [address] Feb, [facility] [address] [id number] [address] [place] [address], [place] [address] 14 Feb, 2013 [facility] [address] [id number] [address] [place] [address], [place] [address] 14 Feb, 2013 [facility] [address] [id number] [address] [place] [address], [place] [address] 05 Feb, 2013 [facility] [address] [id number] [address] [place] [address], [place] [address] 05 Feb, 2013 [facility] [address] [id number] [address] [place] [address], [place] [address] Jan, [facility] [address] [id number] [address] [place] [address], [place] [address] Jan, [facility] [address] [id number] [address] [place] [address], [place] [address] Jan, [facility] [address] [id number] [address] [place] [address], [place] [address] Jan, [facility] [address] [id number] [address] [place] [address], [place] [address] Jan, [facility] [address] [id number] [address] [place] [address], [place] [address] Jan, [facility] [address] [id number] [address] [place] [address], [place] [address] Dec, [facility] [address] [id number] [address] [place] [address], [place] [address] Dec, [facility] [address] [id number] [address] [place] [address], [place] [address] Nov, [facility] [address] [id number] [address] [place] [address], [place] [address] Nov, [facility] [address] [id number] [address] [place] [address], [place] [address] Oct, [facility] [address] [id number] [address] [place] [address], [place] [address] Oct, [facility] [address] [id number] [address] [place] [address], [place] [address] Oct, [facility] [address] [id number] [address] [place] [address], [place] [address] Oct, [facility] [address] [id number] [address] [place] [address], [place] [address] Oct, [facility] [address] [id number] [address] [place] [address], [place] [address] Oct, [facility] [address] [id number] [address] [place] [address], [place] [address] Sep, [facility] [address] [id number] [address] [place] [address], [place] [address] Sep, [facility] [address] [id number] [address] [place] [address], [place] [address] Sep, [facility] [address] [id number] [address] [place] [address], [place] [address] Sep, [facility] [address] [id number] [address] [place] [address], [place] [address] August, [facility] [address] [id number] [address] [place] [address], [place] [address] August, [facility] [address] [id number] [address] [place] [address], [place] [address] August, [facility] [address] [id number] [address] [place] [address], [place] [address] August, [facility] [address] [id number] [address] [place] [address], [place] [address] August, [facility] [address] [id number] [address] [place] [address], [place] [address] Jul, [facility] [address] [id number] [address] [place] [address], [place] [address] Jul, [facility] [address] [id number] [address] [place] [address], [place] [address] 15 Jul, 2012 [facility] [address] [id number] [address] [place] [address], [place] [address] Jul, [facility] [address] [id number] [address] [place] [address], [place] [address] Jul, [facility] [address] [id number] [address] [place] [address], [place] [address] Jul, [facility] [address] [id number] [address] [place] [address] Jul, [facility] [address] [id number] [address] [place] [address], [place] [address] Jul, [facility] [address] [id number] [address] [place] [id number] Jul, [facility] [address] [id number] [address] [place] [address], [place] [address] Jul, [facility] [address] [id number] [id number] Jun, [facility] [address] [id number] [address] [place] [address], [place] [address] Jun, [facility] [address] [id number] [address] [place] [address], [place] [address] Jun, [facility] [address] [id number] [address] [place] [address], [place] [address] Jun, [facility] [address] [id number] [address] [place] [address], [place] [address] Jun, [facility] [address] [id number] [address] [place] [address], [place] [address] May, [facility] [address] [id number] [address] [place] [address], [place] [address] May, [facility] [address] [id number] [address] [place] [address], [place] [address] May, [facility] [address] [id number] [address] [place] [address], [place] [address] Apr, [facility] [address] [id number] [address] [place] [address], [place] [address] Apr, [facility] [address] [id number] [address] [place] [address], [place] [address] Apr, [facility] [address] [id number] [address] [place] [address], [place] [address] Apr, [facility] [address] [id number] [address] [place] [address], [place] [address] Apr, [facility] [address] [id number] [address] [place] [address], [place] [address] Apr, [facility] [address] [id number] [address] [place] [address], [place] [address] Mar, [facility] [address] [id number] [address] [place] [address], [place] [address] Mar, [facility] [address] [id number] [address] [place] [address], [place] [address] Mar, [facility] [address] [id number] [address] [place] [address], [place] [address] Mar, [facility] [address] [id number] [address] [place] [address], [place] [address] Feb, [facility] [address] [id number] [address] [place] [address], [place] [address] Feb, [facility] [address] [id number] [address] [place] [address], [place] [address] Feb, [facility] [address] [id number] [address] [place] [address], [place] [address] Feb, [facility] [address] [id number] [address] [place] [address], [place] [address] Feb, [facility] [address] [id number] [address] [place] [address], [place] [address] Feb, [facility] [address] [id number] [address] [place] [address], [place] [address] Feb, [facility] [address] [id number] [address] [place] [address], [place] [address] Feb, [facility] [address] [id number] [address] [place] [address], [place] [address] Feb, [facility] [address] [id number] [address] [place] [address], [place] [address] Feb, [facility] [address] [id number] [address] [place] [address], [place] [address] Feb, [facility] [address] [id number] [address] [place] [address], [place] [address] Feb, [facility] [address] [id number] [address] [place] [address], [place] [address] Feb, [facility] [address] [id number] [address] [place] [address], [place] [address] Feb, [facility] [address] [id number] [address] [place] [address], [place] [address] Feb, [facility] [address] [id number] [address] [place] [address], [place] [address] Feb, [facility] [address] [id number] [address] [place] [address], [place] [address] Jan, [facility] [address] [id number] [address] [place] [address], [place] [address] Jan, [facility] [address] [id number] [address] [place] [address], [place] [address] Jan, [facility] [address] [id number] [address] [place] [address] Jan, [facility] [address] [id number] [address] [place] [address], [place] [address] 30 Jan, 2012 [facility] [address] [id number] [address] [place] [id number] Jan, [facility] [address] [id number] [address] [place] [address], [place] [address] Jan, [facility] [address] [id number] [address] [place] [address], [place] [address] Jan, [facility] [address] [id number] [address] [place] [address], [place] [address] Jan, [facility] [address] [id number] [address] [place] [address] [place] [address] 15 Jan, 2012 [facility] [address] [id number] [address] [place] [address], [place] [address] 15 Jan, 2012 [facility] [address] [id number] [address] [place] [address], [place] [address] Jan, [facility] [address] [id number] [address] [place] [address], [place] [address] 26 Sep, 2011 [facility] [address] [id number] [address] [place] [address], [place] [address] 26 Sep, 2011 [facility] [address] [id number] [address] [place] [address], [place] [address] 24 Sep, 2011 [facility] [address] [id number] [address] [place] [address], [place] [address] 23 Sep, 2011 [facility] [address] [id number] [address] [place] [address], [place] [id number] 22 Sep, 2011 [facility] [address] [id number] [address] [place] [address], [place] [address] 21 Sep, 2011 [facility] [address] [id number] [address] [place] [address], [place] [address] 20 Sep, 2011 [facility] [address] [id number] [address] [place] [address], [place] [address] 20 Sep, 2011 [facility] [address] [id number] [address] [place] [address], [place] [address] 07 Sep, 2011 [facility] [address] [id number] [address] [place] [address], [place] [address] 06 Sep, 2011 [facility] [address] [id number] [address] [place] [address], [place] [address] 06 Sep, 2011 [facility] [address] [id number] [address] [place] [address], [place] [address] 05 Sep, 2011 [facility] [address] [id number] [address] [place] [address], [place] [address] 23 Nov, 2011 [facility] [address] [id number] [facility] [place] [address] 17 Nov, 2011 [facility] [address] [id number] [address] [place] [address], [place] [address] Nov, [facility] [address] [id number] [address] [place] [address], [place] [address] Nov, [facility] [address] [id number] [address] [place] [address], [place] [address] Nov, [facility] [address] [id number] [address] [place] [address], [place] [address] Nov, [facility] [address] [id number] [address] [place] [address], [place] [address] Nov, [facility] [address] [id number] [address] [place] [address], [place] [address] Nov, [facility] [address] [id number] [address] [place] [address], [place] [address] 30 Oct, 2011 [facility] [address] [id number] [address] [place] [address], [place] [id number] Oct, [facility] [address] [id number] [address] [place] [address], [place] [address] Oct, [facility] [address] [id number] [address] [place] [address], [place] [id number] Oct, [facility] [address] [id number] [address] [place] [address], [place] [address] Oct, [facility] [address] [id number] [address] [place] [address], [place] [id number] 16 Oct, 2011 [facility] [address] [id number] [address] [place] [address], [place] [address] Oct, [facility] [address] [id number] [address] [place] [address], [place] [address] Sep, [facility] [address] [id number] [address] [place] [address], [place] [address] Sep, [facility] [address] [id number] [address] [place] [address], [place] [address] August, [facility] [address] [id number] [address] [place] [address], [place] [address] August, [facility] [address] [id number] [address] [place] [address], [place] [address] August, [facility] [address] [id number] [address] [place] [address], [place] [address] August, [facility] [address] [id number] [address] [place] [address], [place] [address] Jul, [facility] [address] [id number] [address] [place] [address], [place] [address] Jul, [facility] [address] [id number] [address] [place] [address], [place] [address] Jul, [facility] [address] [id number] [address] [place] [address], [place] [id number] Jul, [facility] [address] [id number] [address] [place] [address], [place] [address] Jul, [facility] [address] [id number] [address] [place] [address], [place] [address] Jul, [facility] [address] [id number] [address] [place] [address], [place] [address] Jul, [facility] [address] [id number] [address] [place] [address], [place] [id number] Jul, [facility] [address] [id number] [address] [place] [address], [place] [address] Jul, [facility] [address] [id number] [address] [place] [address], [place] [address] Jun, [facility] [address] [id number] [address] [place] [address], [place] [address] Jun, [facility] [address] [id number] [address] [place] [address], [place] [address] 15 Jun, 2011 [facility] [address] [id number] [address] [place] [address], [place] [address] 14 Jun, 2011 [facility] [address] [id number] [address] [place] [address], [place] [address] 12 Jun, 2011 [facility] [address] [id number] [address] [place] [address], [place] [address] 09 Jun, 2011 [facility] [address] [id number] [address] [place] [address], [place] [address] 09 Jun, 2011 [facility] [address] [id number] [address] [place] [address], [place] [address] 25 May, 2011 [facility] [address] [id number] [address] [place] [address], [place] [address] 24 May, 2011 [facility] [address] [id number] [address] [place] [place] [address], [place] [id number] 16 May, [address] [facility] [address] [id number] [address] [place] [address], [place] [id number] 16 May, 2011 [facility] [address] [id number] [address] [place] [address], [place] [id number] May, [facility] [address] [id number] [address] [place] [address], [place] [id number] Apr, [facility] [address] [id number] [address] [place] [address], [place] [id number] Apr, [facility] [address] [id number] [address] [place] [address], [place] [id number] Apr, [facility] [address] [id number] [address] [place] [address], [place] [address] Apr, [facility] [address] [id number] [address] [place] [address], [place] [id number] Apr, [facility] [address] [id number] [address] [place] [address], [place] [id number] Mar, [facility] [address] [id number] [address] [place] [address], [place] [id number] Mar, [facility] [address] [id number] [address] [place] [address], [place] [id number] Mar, [facility] [address] [id number] [address] [place] [address], [place] [id number] Mar, [facility] [address] [id number] [address] [place] [address], [place] [id number] Mar, [facility] [address] [id number] [address] [place] [address], [place] [id number] Mar, [facility] [address] [id number] [address] [place] [address], [place] [id number] Mar, [facility] [address] [id number] [address] [place] [address], [place] [id number] Feb, [facility] [address] [id number] [address] [place] [address], [place] [id number] Feb, [facility] [address] [id number] [address] [place] [address], [place] [id number] Feb, [facility] [address] [id number] [address] [place] [id number] Feb, [facility] [address] [id number] [address] [place] [address], [place] [id number] Jan, [facility] [address] [id number] [address] [place] [id number] Jan, [facility] [address] [id number] [address] [place] [address], [place] [id number] Jan, [facility] [address] [id number] [address] [place] [address], [place] [id number] Jan, [facility] [address] [id number] [address] [place] [address], [place] [id number] Nov, [facility] [address] [id number] [address] [place] [id number] Mar, [facility] [address] [id number] [address] [place] [id number] Mar, [facility] [address] [id number] [address] [place] [id number] Mar, [facility] [address] [id number] [address] [place] [id number] Mar, [facility] [address] [id number] [address] [place] [id number] Mar, [facility] [address] [id number] [address] [place] [id number] Mar, [facility] [address] [id number] [address] [place] [id number] Feb, [facility] [address] [facility] [id number] [address] [place] [id number] Feb, [facility] [address] [id number] [address] [place] [id number] Jan, [facility] [address] [facility] [id number] [address] [place] [id number] Jan, [facility] [address] [facility] [id number] [address] [place] [id number] Jan, IMMUNIZATIONS No Known Immunizations SOCIAL HISTORY [...] [facility] psych for SI 1988 Hospitalization History VC-Altered mental status 05/2017 Hospitalization History sepsis, UTI, headache 08/03/2018-
--- NOTE | 2019-08-01 10:22 | Diagnostic Imaging Report ---
PROCEDURE: CT orbit without contrast. TECHNIQUE: Multiple contiguous axial images were obtained through the facial bones without the use of intravenous contrast. Auto Exposure Controls were utilized during the CT exam to meet ALARA standards for radiation dose reduction. INDICATION: Redness and swelling to the right orbit and fever. FINDINGS: Both globes appear to be unremarkable and symmetric. Extraocular musculature also appears to be symmetric. No retro-orbital fluid collection is seen. Intraconal and extraconal spaces are unremarkable. There does appear to be some mild preseptal soft tissue swelling on the right. There is some inflammatory stranding in the subcutaneous tissues in the right frontoparietal and temporal region. There appears to be some slight stranding in the right facial tissues. The visualized paranasal sinuses are clear. Maxillary sinuses are well aerated. Ethmoids, frontal and sphenoid sinus are clear. IMPRESSION: Findings suggestive of right periorbital and facial cellulitis. No fluid collection or abscess is identified. Dictated by: Dictated on workstation # [id number]
--- OUTSIDE RECORDS SUMMARY | 2019-08-01 10:35 | XMS REPORT ---
Author Author Lola Tyson Doctor Organization [facility] Address Unknown Phone Unavailable Care Team Providers Care Blocker Hand Name Role Phone Migration, Doctor Unavailable Unavailable PROBLEMS Type Condition ICD9-CM Code [id number] Code Onset Dates Condition S tatus SNOMED Code Problem Restless leg G25.81 Active 3351256 8 Problem Insomnia G47.00 Active 198839742 Problem Hypothyroid E03.9 Active 44025101 Problem Palpitations R00.2 Active 0406433 2 Problem Asthma J45.909 Active 911737176 Problem Chronic kidney disease, stage 4 (severe) N18.4 Active 278251060 Problem Depressed F32.9 Active 73778223 Problem Primary osteoarthritis of left knee M17.12 Active 011195145 Problem Generalized anxiety disorder F41.1 A ctive 91803413 Problem Anemia in chronic kidney disease D63.1 Active [id number] Problem Low back pain M54.5 Active 138763 009 Problem Coronary artery disease invo lving [place] coronary artery of [place] heart, angina presence unspecified I25.10 Active [id number] Problem Dysthymic disorder F34.1 Active 7 8303813 Problem Other seasonal allergic rhinitis J30.2 Active 772362828 Problem History of anemia Z86.2 Active 27 7613617 Problem Fibromyalgia M79.7 Active 7438156 05 Problem Hypokalemia E87.6 Active 15998707 Problem Vitamin D deficiency E55.9 Active 36234374 Problem Mixed stress and urge urinary incontinence N39.46 Active 741352174 Problem Chronic kidney disease, unspecified N18.9 Active 492401255 Problem Abnormal chest CT R93.8 Active 44 4933253 Problem Essential (primary) hypertension I10 Active 04302628 Problem Long-term use of high-risk medication Z79.899 Active 191995174 Problem Degenerative tear of medial meniscus of left knee M23.204 Active 370272067 Problem Mood disorder F39 Active 802443 05 Problem Stage 3 chronic kidney disease N18.3 Active 183295965 Problem Perimenopausal vasomotor symptoms N95.1 Active 289360979 Problem History of colon polyps Z86.010 Active 889075058 Problem Other chronic pain G89.29 Active 8 6536304 Problem Functional diarrhea K59.1 Active 45599114 Problem Asthma with acute exacerbation in adult J45.901 Active 617815469 Problem Body mass index (BMI) of 40.0-44.9 in adult Z68.41 Active 773106884 Problem Seasonal allergic rhinitis due to pollen J30.1 Active 79646761 Problem Restless leg syndrome G25.81 Active 26671470 Problem Chronic pain syndrome G89.4 Active 681407611 ALLERGIES No Information ENCOUNTERS Encounter Location Date Diagnosis [facility] [address] [facility] [id number] [address] [place] [address] Dec, [facility] [address] [facility] [id number] [address] [place] [address] Nov, [facility] [address] [facility] [id number] [address] [place] [address] Oct, [facility] [address] [facility] [id number] [address] [place] [address] Oct, Cellulitis of left lower ext remity L03.116 and Morbid obesity E66.01 [facility] [address] [facility] [id number] [address] [place] [address] Oct, [facility] [address] [facility] [id number] [address] [place] [address] Oct, [facility] [address] [facility] [id number] [address] [place] [address] Oct, Generalized anxiety disorder F41.1 and Major depressive disorder, recurrent episode with anxious distress F33.9 [facility] [address] [facility] [id number] [address] [place] [address] Oct, [facility] [address] [facility] [id number] [address] [place] [address] Oct, Chronic pain syndrome G89.4 [facility] [address] [facility] [id number] [address] [place] [address] Oct, Chronic pain syndrome G89.4 [facility] [address] [facility] [id number] [address] [place] [address] Oct, UTI symptoms R39.9 ; Acute c ystitis without hematuria N30.00 and Morbid obesity E66.01 [facility] [address] [facility] [id number] [address] [place] [address] Oct, [facility] [address] [facility] [id number] [address] [place] [address] Oct, Chronic pain syndrome G89.4 [facility] [address] [facility] [id number] [address] [place] [address] Sep, [facility] [address] [facility] [id number] [address] [place] [address] Sep, Generalized anxiety disorder F41.1 and Major depressive disorder, recurrent episode with anxious distress F33.9 [facility] [address] [facility] [id number] [address] [place] [address] Sep, Chronic kidney disease, stag e 4 (severe) N18.4 [facility] [address] [facility] [id number] [address] [place] [address] Sep, Fibromyalgia M79.7 and Chron ic pain syndrome G89.4 [facility] [address] [facility] [id number] [address] [place] [address] Sep, [address] [address] Sep, Chronic pain syndrome G89.4 [facility] [address] [facility] [id number] [address] [place] [address] Sep, [facility] [address] [facility] [id number] [address] [place] [address] Sep, Chronic pain syndrome G89.4 ; Fibromyalgia M79.7 and Morbid obesity E66.01 [facility] [address] [facility] [id number] [address] [place] [address] August, Generalized anxiety disorder F41.1 and Major depressive disorder, recurrent episode with anxious distress F33.9 [facility] [address] [id number] [address] [place] [address] August, Fibromyalgia M79.7 [facility] [address] [id number] [address] [place] [address] August, Restless leg syndrome G25.81 ; Vitamin D deficiency E55.9 ; Urinary tract infection without hematuria, site unspecified N39.0 ; Pain in right shoulder M25.511 ; Other chronic pain G89.29 ; Biceps tendinitis on right M75.21 and Morbid obesity E66.01 [facility] [address] [id number] [address] [place] [address] Jul, Urinary tract infection with out hematuria, site unspecified N39.0 and Morbid obesity E66.01 [facility] [address] [id number] [address] [place] [address] Jul, [facility] [address] [id number] [address] [place] [address] Jul, [facility] [address] [id number] [address] [place] [address] Jul, Fibromyalgia M79.7 [facility] [address] [id number] [address] [place] [address] Jul, Acute pain of right shoulder M25.511 [facility] [address] [id number] [address] [place] [address] Jul, Acute pain of right shoulder M25.511 and Morbid obesity E66.01 [facility] [address] [id number] [address] [place] [address] Jun, [facility] [address] [id number] [address] [place] [address] 14 Jun, 2018 Generalized anxiety disorder F41.1 and Major depressive disorder, recurrent episode with anxious distress F33.9 [facility] [address] [id number] [address] [place] [address] 11 Jun, 2018 [facility] [id number] [place] [address] 06 Jun, 2018 Fibromyalgia M79.7 [facility] [address] [place] [id number] [address] [place] [address] 04 Jun, 2018 Acute pain of right shoulder M25.511 ; Acute pain of right hip M25.551 and Morbid obesity E66.01 [place] [address] [place] [id number] [place] [address] 11 May, 2018 Burning with urination R30.0 ; Vaginal discharge N89.8 ; Chronic kidney disease, stage 4 (severe) N18.4 ; Body mass index (BMI) of 40.0-44.9 in adult Z68.41 and Morbid obesity E66.01 [place] [address] [address] 07 May, 2018 Fibromyalgia M79.7 [place] [address] [address] 06 May, 2018 Generalized anxiety disorder F41.1 and Major depressive disorder, recurrent episode with anxious distress F33.9 [place] [id number] [place] [address] 24 Apr, 2018 [place] [address] [place] [id number] [address] [place] [address] Apr, Fibromyalgia M79.7 [facility] [address] [place] [id number] [address] [place] [id number] 14 Mar, 2018 Acute UTI N39.0 and Dysuria R30.0 [place] [address] [address] 10 Mar, 2018 Fibromyalgia M79.7 [facility] [address] [place] [id number] [address] [place] [id number] 15 Feb, 2018 [place] [address] [place] [id number] [address] [place] [address] 14 Feb, 2018 [facility] [address] [facility] [id number] [address] [place] [address] Feb, [facility] [address] [facility] [id number] [address] [place] [address] Feb, Fibromyalgia M79.7 [facility] [address] [facility] [id number] [address] [place] [address] 08 Feb, 2018 Complicated UTI (urinary tra ct infection) N39.0 [facility] [address] [id number] [address] [place] [address] Feb, [facility] [address] [facility] [id number] [address] [place] [address] Jan, Generalized anxiety disorder F41.1 and Major depressive disorder, recurrent episode with anxious distress F33.9 [facility] [address] [facility] [id number] [address] [place] [address] Jan, Acute conjunctivitis of left eye, unspecified acute conjunctivitis type H10.32 [facility] [address] [facility] [id number] [address] [place] [address] Jan, [facility] [address] [facility] [id number] [address] [place] [address] Jan, Acute non-recurrent maxillar y sinusitis J01.00 ; Dysuria R30.0 ; Perimenopausal vasomotor symptoms N95.1 and Fibromyalgia M79.7 [facility] [address] [facility] [id number] [address] [place] [address] 28 Dec, 2017 Vitamin D deficiency E55.9 [facility] [address] [facility] [id number] [address] [place] [address] 27 Dec, 2017 Vitamin D deficiency E55.9 [facility] [address] [facility] [id number] [address] [place] [address] 24 Dec, 2017 Vitamin D deficiency E55.9 [facility] [address] [facility] [id number] [address] [place] [address] Dec, [facility] [address] [id number] [address] [place] [address] Dec, Fibromyalgia M79.7 [facility] [address] [id number] [address] [place] [address] Nov, [facility] [address] [id number] [address] [place] [address] Nov, [facility] [address] [id number] [address] [place] [address] Nov, [facility] [address] [id number] [address] [place] [address] Nov, Fibromyalgia M79.7 ; Vision changes H53.9 ; Chest wall pain R07.89 and Chronic pain syndrome G89.4 [facility] [address] [id number] [address] [place] [address] Nov, [facility] [address] [id number] [address] [place] [address] Nov, Rash of hands R21 [facility] [address] [id number] [address] [place] [address] Nov, Generalized anxiety disorder F41.1 and Major depressive disorder, recurrent episode with anxious distress F33.9 [facility] [address] [id number] [address] [place] [address] Nov, Fibromyalgia M79.7 [facility] [address] [id number] [address] [place] [address] Nov, Complicated UTI (urinary tra ct infection) N39.0 [facility] [address] [id number] [address] [place] [address] Oct, [facility] [address] [id number] [address] [place] [id number] Oct, Generalized anxiety disorder F41.1 and Major depressive disorder, recurrent episode with anxious distress F33.9 [facility] [address] [id number] [address] [place] [address] Oct, [facility] [address] [facility] [id number] [address] [place] [address] Oct, Fibromyalgia M79.7 [facility] [address] [facility] [id number] [address] [place] [address] Sep, Restless leg syndrome G25.81 and Restless leg G25.81 [facility] [address] [facility] [id number] [address] [place] [address] Sep, [facility] [address] [facility] [id number] [address] [place] [address] Sep, Seasonal allergic rhinitis d ue to pollen J30.1 ; Screening for breast cancer Z12.31 ; Chest pain at rest R07.9 ; Restless leg syndrome G25.81 ; Essential (primary) hypertension I10 and Depressed F32.9 [facility] [address] [facility] [id number] [address] [place] [address] August, Fibromyalgia M79.7 [facility] [address] [facility] [id number] [address] [place] [address] August, [facility] [address] [place] [id number] [address] [place] [address] August, [facility] [address] [place] [id number] [address] [place] [address] August, Abnormal chest CT R93.8 [facility] [address] [facility] [id number] [address] [place] [address] August, Generalized anxiety disorder F41.1 and Major depressive disorder, recurrent episode with anxious distress F33.9 [facility] [address] [facility] [id number] [address] [place] [address] August, Abnormal chest CT R93.8 [facility] [address] [facility] [id number] [address] [place] [address] Jul, [facility] [address] [place] [id number] [address] [place] [address] Jul, Chronic kidney disease, stag e 4 (severe) N18.4 [facility] [address] [id number] Jul, [facility] [address] [place] [id number] [place] [address] Jul, Restless leg G25.81 ; Mixed stress and urge urinary incontinence N39.46 and Fibromyalgia M79.7 [facility] [address] [place] [id number] [place] [address] Jul, Chronic kidney disease, stag e 4 (severe) N18.4 [facility] [address] [address] Jun, Orthostatic hypotension I95. 1 ; Chronic kidney disease, stage 4 (severe) N18.4 ; Chest wall discomfort R07.89 and Body mass index (BMI) of 40.0- 44.9 in adult Z68.41 [place] [address] [address] Jun, [facility] [address] [address] Jun, Orthostatic hypotension I95. 1 [facility] [address] [address] Jun, [facility] [address] [place] [id number] [place] [address] Jun, Orthostatic hypotension I95. 1 ; Dysuria R30.0 and Acute cystitis without hematuria N30.00 [facility] [address] [address] Jun, [facility] [address] [place] [id number] [place] [address] Jun, Chronic kidney disease, stag e 4 (severe) N18.4 [facility] [address] [place] [id number] [address] [place] [address] Jun, Fibromyalgia M79.7 [facility] [address] [facility] [id number] [address] [place] [address] Jun, [facility] [address] [facility] [id number] [address] [place] [address] Jun, [facility] [address] [facility] [id number] [address] [place] [address] May, Abnormal chest CT R93.8 and Stage 3 chronic kidney disease N18.3 [facility] [address] [facility] [id number] [address] [place] [address] May, Chronic kidney disease, stag e 4 (severe) N18.4 [facility] [address] [facility] [id number] [address] [place] [address] May, Chronic kidney disease, stag e 4 (severe) N18.4 [facility] [address] [facility] [id number] [address] [place] [address] May, Abnormal chest [address] R93.8 [facility] [address] [facility] [id number] [address] [place] [address] May, [facility] [address] [facility] [id number] [address] [place] [address] May, [facility] [address] [facility] [id number] [address] [place] [address] May, Generalized anxiety disorder F41.1 and Major depressive disorder, recurrent episode with anxious distress F33.9 [facility] [address] [facility] [id number] [address] [place] [address] May, Mood disorder F39 [facility] [address] [facility] [id number] [address] [place] [address] Apr, [facility] [address] [facility] [id number] [address] [place] [address] Apr, Infected skin lesion L08.9 a nd Muscle strain of right shoulder region, initial encounter S46.911A [facility] [address] [id number] [address] [place] [address] Apr, Generalized anxiety disorder F41.1 and Major depressive disorder, recurrent episode with anxious distress F33.9 [facility] [address] [id number] [address] [place] [address] Apr, [facility] [address] [id number] [address] [place] [address] Apr, Recent urinary tract infecti on Z87.440 and Hypothyroid E03.9 [facility] [address] [id number] [address] [place] [address] Apr, Generalized anxiety disorder F41.1 and Major depressive disorder, recurrent episode with anxious distress F33.9 [facility] [address] [id number] [address] [place] [address] Apr, Recent urinary tract infecti on Z87.440 [facility] [address] [id number] [address] [place] [address] Mar, [facility] [address] [id number] [address] [place] [address] Mar, Dysuria R30.0 ; Acute cystit is without hematuria N30.00 and BMI 40.0-44.9, adult Z68.41 [facility] [address] [id number] [address] [place] [address] Mar, [facility] [address] [id number] [address] [place] [address] Mar, [facility] [address] [id number] [address] [place] [address] Mar, Generalized anxiety disorder F41.1 and Major depressive disorder, recurrent episode with anxious distress F33.9 [facility] [address] [id number] [address] [place] [address] Feb, Conjunctivitis, bacterial H1 0.9 [facility] [address] [facility] [id number] [address] [place] [address] Feb, [facility] [address] [facility] [id number] [place] [phone] Feb, Conjunctivitis, bacterial H1 0.9 [facility] [address] [place] [id number] [place] [address] Feb, [facility] [address] [place] [id number] [place] [address] Feb, Dysuria R30.0 ; Acute cystit is N30.00 and BMI 40.0-44.9, adult Z68.41 [place] [address] [id number] Feb, [place] [address] [address] Feb, Generalized anxiety disorder F41.1 and Major depressive disorder, recurrent episode with anxious distress F33.9 [place] [address] [address] Feb, Mood disorder F39 and BMI 40 .0-44.9, adult Z68.41 [place] [address] [place] [id number] [place] [id number] Jan, [place] [address] [address] Jan, [place] [address] [address] Jan, Hypothyroid E03.[address] [address] Jan, [place] [address] [place] [id number] [place] [address] Jan, Chronic kidney disease, unsp ecified N18.9 ; Hypokalemia E87.6 ; Essential (primary) hypertension I10 ; Fibromyalgia M79.7 ; Coronary artery disease involving [place] coronary artery of [place] heart, angina presence unspecified I25.10 ; Hypothyroid E03.9 and Encounter for immunization Z23 [facility] [address] [facility] [id number] [address] [place] [phone] 04 Jan, 2017 Hypothyroid E03.9 [facility] [address] [facility] [id number] [address] [place] [address] Jan, [facility] [address] [facility] [id number] [address] [place] [address] 28 Dec, 2016 Vitamin D deficiency E55.9 [facility] [address] [facility] [id number] [address] [place] [address] 28 Dec, 2016 Primary osteoarthritis of le ft knee M17.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 [place] [address] [facility] [id number] [address] [place] [address] 19 Dec, 2016 Fibromyalgia M79.7 [facility] [address] [facility] [id number] [address] [place] [address] 18 Dec, 2016 Mood disorder F39 [place] [address] [facility] [id number] [address] [place] [address] 13 Dec, 2016 [place] [address] [facility] [id number] [address] [place] [id number] 13 Dec, 2016 Generalized anxiety disorder F41.1 and Major depressive disorder, recurrent episode with anxious distress F33.9 [facility] [address] [facility] [id number] [address] [place] [id number] 11 Dec, 2016 [facility] [address] [facility] [id number] [address] [place] [id number] 08 Dec, 2016 Streptococcal meningitis G00 .2 [facility] [address] [facility] [id number] [address] [place] [id number] 07 Dec, 2016 Streptococcal meningitis G00 .2 [place] [id number] [facility] [id number] [address] [place] [id number] Dec, [facility] [address] [facility] [id number] [address] [place] [phone] Dec, Streptococcal meningitis G00 .2 [facility] [address] [facility] [id number] [address] [place] [address] Dec, [facility] [address] [facility] [id number] [address] [place] [address] Dec, Major depressive disorder, r ecurrent episode with anxious distress F33.9 [facility] [address] [facility] [id number] [address] [place] [address] Nov, Fever, unspecified fever cau se R50.9 [facility] [address] [facility] [id number] [address] [place] [address] Nov, [place] [address] [place] [id number] [address] [place] [address] Nov, Hypothyroid E03.9 [facility] [address] [place] [id number] [address] [place] [address] Nov, Generalized anxiety disorder F41.1 and Major depressive disorder, recurrent episode with anxious distress F33.9 [place] [address] [place] [id number] [address] [place] [address] Nov, [facility] [address] [place] [id number] [address] [place] [id number] Oct, Dental examination Z01.20 [facility] [address] [place] [id number] [address] [place] [address] Oct, Generalized anxiety disorder F41.1 and Major depressive disorder, recurrent episode with anxious distress F33.9 [facility] [address] [place] [id number] [address] [place] [address] Oct, Chronic kidney disease, stag e 4 (severe) N18.4 [facility] [address] [place] [id number] [address] [place] [address] Oct, [facility] [address] [place] [id number] [address] [place] [address] Oct, Fibromyalgia M79.7 [facility] [address] [facility] [id number] [address] [place] [address] Oct, [facility] [address] [facility] [id number] [address] [place] [address] Oct, Generalized anxiety disorder F41.1 ; Major depressive disorder, recurrent episode with anxious distress F33.9 and Bipolar disorder, current episode manic without psychotic features F31.10 [facility] [address] [facility] [id number] [address] [place] [address] Sep, [place] [address] [facility] [id number] [address] [place] [address] Sep, [place] [address] [place] [id number] [address] [place] [address] Sep, Vitamin D deficiency E55.9 [place] [address] [place] [id number] [address] [place] [address] Sep, Vitamin D deficiency E55.9 [place] [address] [place] [id number] [address] [place] [address] Sep, [place] [address] [facility] [id number] [address] [place] [address] Sep, Chronic kidney disease, stag e 4 (severe) N18.4 ; Hypothyroid E03.9 ; Restless leg G25.81 ; Fibromyalgia M79.7 ; Essential (primary) hypertension I10 ; Vitamin D deficiency E55.9 ; Dyspepsia R10.13 ; Anemia in chronic kidney disease D63.1 ; Chronic kidney disease, unspecified N18.9 ; Coronary artery disease involving [place] coronary artery of [place] heart, angina presence unspecified I25.10 ; Screening breast examination Z12.39 and Low back pain M54.5 [facility] [address] [place] [id number] [address] [place] [address] August, Generalized anxiety disorder F41.1 and Major depressive disorder, recurrent episode with anxious distress F33.9 [facility] [address] [facility] [id number] [address] [place] [address] August, Generalized anxiety disorder F41.1 and Major depressive disorder, recurrent episode with anxious distress F33.9 [facility] [address] [facility] [id number] [address] [place] [address] August, Fibromyalgia M79.7 [facility] [address] [place] [id number] [address] [place] [address] Jul, Generalized anxiety disorder F41.1 and Major depressive disorder, recurrent episode with anxious distress F33.9 [place] [address] [facility] [id number] [address] [place] [address] Jul, Fibromyalgia M79.7 [place] [id number] [facility] [id number] [address] [place] [address] Jul, Generalized anxiety disorder F41.1 [place] [address] [place] [id number] [address] [place] [address] May, [place] [address] [place] [id number] [address] [place] [address] May, Hypothyroid E03.9 [place] [address] [place] [id number] [address] [place] [address] May, Chronic kidney disease, stag e 4 (severe) N18.4 ; Hypothyroid E03.9 ; Restless leg G25.81 ; Fibromyalgia M79.7 ; Essential (primary) hypertension I10 ; Vitamin D deficiency E55.9 ; Dyspepsia R10.13 ; Acute non-recurrent maxillary sinusitis J01.00 ; Anemia in chronic kidney disease D63.1 ; Chronic kidney disease, unspecified N18.9 and Coronary artery disease involving [place] coronary artery of [place] heart, angina presence unspecified I25.10 [place] [address] [facility] [id number] [address] [place] [address] May, Vitamin D deficiency, unspec ified E55.9 [place] [address] [place] [id number] [address] [place] [address] May, Generalized anxiety disorder F41.1 and Major depressive disorder, recurrent episode with anxious distress F33.9 [facility] [address] [facility] [id number] [address] [place] [address] Apr, Pain in right knee M25.561 a nd Pain in left knee M25.562 [facility] [address] [facility] [id number] [address] [place] [address] Apr, [facility] [address] [facility] [id number] [address] [place] [address] Apr, [facility] [address] [facility] [id number] [address] [place] [address] Apr, [facility] [address] [facility] [id number] [address] [place] [address] Mar, Generalized anxiety disorder F41.1 and Major depressive disorder, recurrent episode with anxious distress F33.9 [facility] [address] [facility] [id number] [address] [place] [address] Mar, Generalized anxiety disorder F41.1 and Major depressive disorder, recurrent episode with anxious distress F33.9 [facility] [address] [facility] [id number] [address] [place] [address] Mar, [facility] [address] [facility] [id number] [address] [place] [address] Mar, [facility] [address] [facility] [id number] [address] [place] [address] Mar, [facility] [address] [facility] [id number] [address] [place] [address] Mar, Asthma J45.909 and Fibromyal elvira M79.7 [facility] [address] [facility] [id number] [address] [place] [address] Mar, Chronic kidney disease, stag e 4 (severe) N18.4 ; Vitamin D deficiency E55.9 and Essential (primary) hypertension I10 [facility] [address] [address] Feb, [facility] [address] [address] Feb, Dysuria R30.0 ; Mixed stress and urge urinary incontinence N39.46 ; Fibromyalgia M79.7 and Chronic kidney disease, stage IV (severe) N18.4 [place] [address] [address] Feb, Chronic kidney disease, stag e 4 (severe) N18.4 [place] [address] [address] Feb, Chronic kidney disease, stag e 4 (severe) N18.4 [place] [address] [address] Feb, [place] [address] [address] Feb, Vitamin D deficiency, unspec ified E55.9 [place] [address] [address] Jan, [facility] [address] [address] Jan, [place] [address] [address] Dec, [facility] [address] [address] Dec, Chronic kidney disease, stag e 4 (severe) N18.4 [facility] [address] [address] Dec, Dysthymic disorder F34.1 and Generalized anxiety disorder F41.1 [place] [address] [address] Dec, [facility] [address] [place] [id number] [address] [place] [address] Dec, [facility] [address] [address] Dec, Dysthymic disorder F34.1 and Generalized anxiety disorder F41.1 [facility] [address] [address] Dec, Dysuria R30.0 ; Chronic kidn ey disease, stage 4 (severe) N18.4 ; Hypertension I10 ; Dyspepsia R10.13 ; Yeast dermatitis B37.2 ; Palpitations R00.2 ; Hypothyroid E03.9 ; Functional diarrhea K59.1 and Other seasonal allergic rhinitis J30.2 [facility] [address] [place] [id number] [place] [address] Dec, [facility] [address] [address] Nov, Dysuria R30.0 and Stress inc ontinence N39.3 [facility] [id number] [place] [address] Nov, [place] [address] [address] Nov, [place] [address] [address] Nov, Osteoarthritis of knees, jose ateral M17.0 [facility] [address] [place] [id number] [address] [place] [address] Nov, Dysthymic disorder F34.1 and Generalized anxiety disorder F41.1 [place] [address] [address] Nov, [place] [address] [place] [id number] [address] [place] [address] Nov, [facility] [address] [address] Nov, Urgency of urination R39.15 [place] [address] [address] Nov, [place] [address] [address] Nov, Chronic kidney disease, stag e 4 (severe) N18.4 [place] [address] [address] Oct, Hypertension I10 ; Coronary artery disease involving [place] coronary artery of [place] heart, angina presence unspecified I25.10 ; Palpitations R00.2 ; Hypothyroid E03.9 ; Right foot pain M79.671 ; Functional diarrhea K59.1 and Other seasonal allergic rhinitis J30.2 [place] [address] [address] Oct, Dysthymic disorder F34.1 and Generalized anxiety disorder F41.1 [place] [address] [address] Sep, [place] [address] [address] Sep, [place] [address] [address] Sep, [place] [address] [address] Sep, [facility] [address] [address] Sep, [place] [address] [address] Sep, Dysthymic disorder F34.1 and Generalized anxiety disorder F41.1 [place] [address] [place] [id number] [place] [address] Sep, Asthma with acute exacerbati on in adult J45.901 ; Dysuria R30.0 ; Chronic kidney disease, stage 4 (severe) N18.4 and History of anemia Z86.2 [place] [address] [facility] [id number] [address] [place] [address] Sep, Generalized anxiety disorder F41.1 and Dysthymic disorder F34.1 [place] [address] [facility] [id number] [address] [place] [address] August, Screening breast examination Z12.39 and Acute recurrent maxillary sinusitis J01.01 [place] [address] [facility] [id number] [address] [place] [address] August, Osteoarthritis of knees, jose ateral M17.0 [place] [address] [facility] [id number] [address] [place] [address] August, Chronic kidney disease, stag e 4 (severe) N18.4 ; Acute non- recurrent maxillary sinusitis J01.00 ; Urinary problem R39.89 ; Bowel habit changes R19.4 ; Functional diarrhea K59.1 and History of colon polyps Z86.010 [place] [address] [place] [id number] [address] [place] [address] Jul, Dysthymic disorder F34.1 and Generalized anxiety disorder F41.1 [place] [address] [facility] [id number] [address] [place] [address] Jul, [place] [address] [facility] [id number] [address] [place] [address] Jul, Dysthymic disorder F34.1 ; G eneralized anxiety disorder F41.1 and detention use of drug Z79.899 [place] [address] [facility] [id number] [address] [place] [address] Jul, [place] [address] [place] [id number] [address] [place] [address] 16 Jun, 2015 [place] [address] [place] [id number] [address] [place] [address] Jun, [place] [address] [place] [address] May, [facility] [address] [address] May, Dysthymic disorder F34.1 and Generalized anxiety disorder F41.1 [place] [address] [place] [id number] [address] [place] [address] Apr, Kidney disease N28.9 [place] [address] [address] Apr, Generalized anxiety disorder F41.1 and Dysthymic disorder F34.1 [place] [address] [address] Apr, Chronic kidney disease, stag e 4 (severe) N18.4 [place] [address] [address] Apr, Generalized anxiety disorder F41.1 ; Major depression, recurrent F33.9 and Sleep disturbance G47.9 [place] [address] [address] Mar, Generalized anxiety disorder F41.1 and Dysthymic disorder F34.1 [place] [address] [address] Mar, Generalized anxiety disorder F41.1 ; Dysthymic disorder F34.1 and Insomnia G47.00 [place] [address] [place] [address] Mar, [place] [address] [place] [id number] [address] [place] [address] Mar, [place] [address] [address] Mar, Osteoarthritis of knees, jose ateral M17.0 [place] [address] [place] [id number] [address] [place] [address] Mar, Hypertension I10 ; Hypothyro id E03.9 ; Dysthymic disorder F34.1 ; Chronic kidney disease, stage 4 (severe) N18.4 and Nausea & vomiting R11.2 [place] [address] [address] Mar, Generalized anxiety disorder F41.1 ; Dysthymic disorder F34.1 and Insomnia G47.00 [place] [address] [address] Mar, Dehydration E86.0 ; Chronic kidney disease, stage 4 (severe) N18.4 and Nausea & vomiting R11.2 [facility] [address] [address] Mar, Gastroenteritis K52.9 [place] [address] [address] Mar, [place] [address] [address] Mar, [place] [address] [address] Feb, Dysthymic disorder F34.1 and Generalized anxiety disorder F41.1 [place] [address] [address] Jan, UTI (urinary tract infection ) N39.0 ; Asthma J45.909 ; Coronary artery disease involving [place] coronary artery of [place] heart, angina presence unspecified I25.10 ; Hypertension I10 ; Hypothyroid E03.9 ; Vitamin D deficiency E55.9 ; Insomnia G47.00 ; Palpitations R00.2 ; Depressed F32.9 ; Restless leg G25.81 and Anxiety F41.9 [place] [address] [address] Jan, Dysthymic disorder F34.1 and Generalized anxiety disorder F41.1 [place] [address] [address] Jan, [place] [address] [address] Dec, [place] [address] [address] Dec, Alkalosis 276.3 ; Chronic ki dney disease, Stage IV (severe) 585.4 ; Hyperpotassemia 276.7 ; Secondary hyperparathyroidism, renal 588.81 ; Proteinuria 791.0 ; Unspecified vitamin D deficiency 268.9 ; Anemia in chronic kidney disease 285.21 ; Other and unspecified hyperlipidemia 272.4 ; Hypertension, essential, benign 401.1 and Chronic kidney disease (CKD), stage III (moderate) 585.3 [place] [address] [address] Dec, [place] [address] [address] Dec, Depressive disorder, not els ewhere classified 311 and Generalized anxiety disorder 300.02 [place] [address] [address] Dec, [place] [address] [address] Dec, [place] [address] [address] Nov, Depressive disorder, not els ewhere classified 311 and Generalized anxiety disorder 300.02 [place] [address] [address] Nov, Arthritis of both knees 716. [address] [address] 07 Nov, 2014 PAF (paroxysmal atrial fibri llation) 427.31 ; CAD (coronary artery disease) 414.00 ; Chest pain 786.50 and Chronic kidney disease (CKD) stage G4/A1, severely decreased glomerular filtration rate (GFR) between 15-29 mL/min/1.73 square meter and albuminuria creatinine ratio less than 30 mg/g 585.4 [facility] [address] [place] [id number] [address] [place] [address] Oct, Coronary atherosclerosis of unspecified type of vessel, cro[place] or graft 414.00 ; Chronic kidney disease, Stage IV (severe) 585.4 ; Hypertension 401.9 and Edema 782.3 [facility] [address] [place] [id number] [place] [address] Oct, Depressive disorder, not els ewhere classified 311 and Generalized anxiety disorder 300.02 [facility] [address] [address] Oct, Depressive disorder, not els ewhere classified 311 and Generalized anxiety disorder 300.02 [place] [address] [address] Oct, [place] [address] [address] Oct, [facility] [address] [address] Sep, [place] [address] [address] Sep, Chronic kidney disease, Stag e IV (severe) 585.4 [place] [address] [address] Sep, [facility] [address] [address] Sep, Coronary atherosclerosis of unspecified type of vessel, [place] or graft 414.00 ; Hypertension 401.9 ; Edema 782.3 and Hypothyroidism 244.[address] [address] Sep, Coronary atherosclerosis of unspecified type of vessel, [place] or graft 414.00 ; Hypertension 401.9 ; Fibromyalgia 729.1 ; Edema 782.3 ; Hypothyroidism 244.9 and Anemia 285.[address] [place] [address] 04 Sep, 2014 Anxiety disorder, unspecifie d 300.00 and Depressive disorder, not elsewhere classified 311 [facility] [address] [id number] [address] [place] [address] Sep, [facility] [address] [facility] [id number] [address] [place] [address] August, Generalized anxiety disorder 300.02 [facility] [address] [id number] [address] [place] [address] August, Closed fracture of lateral m alleolus 824.2 [facility] [address] [id number] [address] [place] [address] Jul, [facility] [address] [facility] [id number] [address] [place] [address] Jul, [facility] [address] [facility] [id number] [address] [place] [address] Jun, [facility] [address] [id number] [address] [place] [address] Jun, [facility] [address] [facility] [id number] [address] [place] [address] Jun, [facility] [address] [facility] [id number] [address] [place] [address] Jun, [facility] [address] [facility] [id number] [address] [place] [address] Jun, [facility] [address] [facility] [id number] [address] [place] [address] Jun, [facility] [address] [facility] [id number] [address] [place] [address] May, [facility] [address] [id number] [address] [place] [address] May, [facility] [address] [facility] [id number] [address] [place] [address] May, [facility] [address] [id number] [address] [place] [address], [place] [address] 18 May, 2014 [facility] [address] [id number] [address] [place] [address], [place] [address] 16 May, 2014 [facility] [address] [id number] [address] [place] [address], [place] [address] 16 May, 2014 [facility] [address] [id number] [address] [place] [address], [place] [address] 13 May, 2014 [facility] [address] [id number] [address] [place] [address], [place] [address] 13 May, 2014 [facility] [address] [id number] [address] [place] [address], [place] [address] 10 May, 2014 [facility] [address] [id number] [address] [place] [address], [place] [address] 10 May, 2014 [facility] [address] [id number] [address] [place] [address], [place] [address] Apr, [facility] [address] [id number] [address] [place] [address], [place] [address] Apr, [facility] [address] [id number] [address] [place] [address], [place] [address] Mar, [facility] [address] [id number] [address] [place] [address], [place] [address] Mar, [facility] [address] [id number] [address] [place] [address], [place] [address] Mar, [facility] [address] [id number] [address] [place] [address], [place] [address] Mar, [facility] [address] [id number] [address] [place] [address], [place] [address] Mar, [facility] [address] [id number] [address] [place] [address], [place] [address] Mar, [facility] [address] [id number] [address] [place] [address], [place] [address] Mar, [facility] [address] [id number] [address] [place] [address], [place] [address] Feb, [facility] [address] [id number] [address] [place] [address], [place] [address] Feb, [facility] [address] [id number] [address] [place] [address], [place] [address] Feb, [facility] [address] [id number] [address] [place] [address], [place] [address] Jan, [facility] [address] [id number] [address] [place] [address], [place] [address] Jan, [facility] [address] [id number] [address] [place] [address], [place] [address] Jan, [facility] [address] [id number] [address] [place] [address], [place] [address] Jan, [facility] [address] [id number] [address] [place] [address], [place] [address] Jan, [facility] [address] [id number] [address] [place] [address], [place] [address] Jan, [facility] [address] [id number] [address] [place] [address], [place] [address] Jan, [facility] [address] [id number] [address] [place] [address], [place] [address] Jan, [facility] [address] [id number] [address] [place] [address], [place] [address] Jan, [facility] [address] [id number] [address] [place] [address], [place] [address] Jan, [facility] [address] [id number] [address] [place] [address], [place] [address] Nov, [facility] [address] [id number] [address] [place] [address], [place] [address] Nov, [facility] [address] [id number] [address] [place] [address], [place] [address] Nov, [facility] [address] [id number] [address] [place] [address], [place] [address] Oct, [facility] [address] [id number] [address] [place] [address], [place] [address] Oct, [facility] [address] [id number] [address] [place] [address], [place] [address] Oct, [facility] [address] [id number] [address] [place] [address], [place] [address] Oct, [facility] [address] [id number] [address] [place] [address], [place] [address] Oct, [facility] [address] [id number] [address] [place] [address], [place] [address] Oct, [facility] [address] [id number] [address] [place] [address], [place] [address] Oct, [facility] [address] [id number] [address] [place] [address], [place] [address] Oct, [facility] [address] [id number] [address] [place] [address], [place] [address] Oct, [facility] [address] [id number] [address] [place] [address], [place] [address] Sep, [facility] [address] [id number] [address] [place] [address], [place] [address] Sep, [facility] [address] [id number] [address] [place] [address], [place] [address] Sep, [facility] [address] [id number] [address] [place] [address], [place] [address] Sep, [facility] [address] [id number] [address] [place] [address], [place] [address] Sep, [facility] [address] [id number] [address] [place] [address], [place] [address] Sep, [facility] [address] [id number] [address] [place] [address], [place] [address] Sep, [facility] [address] [id number] [address] [place] [address], [place] [address] Sep, [facility] [address] [id number] [address] [place] [address], [place] [address] Sep, [facility] [address] [id number] [address] [place] [address], [place] [address] August, [facility] [address] [id number] [address] [place] [address], [place] [address] August, [facility] [address] [id number] [address] [place] [address], [place] [address] August, [facility] [address] [id number] [address] [place] [address], [place] [address] August, [facility] [address] [id number] [address] [place] [address], [place] [address] August, [facility] [address] [id number] [address] [place] [address], [place] [address] August, [facility] [address] [id number] [address] [place] [address], [place] [address] Jul, [facility] [address] [id number] [address] [place] [address], [place] [address] Jul, [facility] [address] [id number] [address] [place] [address], [place] [address] Jul, [facility] [address] [id number] [address] [place] [address], [place] [address] Jul, [facility] [address] [id number] [address] [place] [address], [place] [address] Jul, [facility] [address] [id number] [address] [place] [address], [place] [address] Jul, [facility] [address] [id number] [address] [place] [address], [place] [address] 10 Jun, 2013 [facility] [address] [id number] [address] [place] [address], [place] [address] Jun, [facility] [address] [id number] [address] [place] [address], [place] [address] May, [facility] [address] [id number] [address] [place] [address], [place] [address] May, [facility] [address] [id number] [address] [place] [address], [place] [address] May, [facility] [address] [id number] [address] [place] [address], [place] [address] May, [facility] [address] [id number] [address] [place] [address], [place] [address] Apr, [facility] [address] [id number] [address] [place] [address], [place] [address] Apr, [facility] [address] [id number] [address] [place] [address], [place] [address] Mar, [facility] [address] [id number] [address] [place] [address], [place] [address] Mar, [facility] [address] [id number] [address] [place] [address], [place] [address] 17 Mar, 2013 [facility] [address] [id number] [address] [place] [address], [place] [address] Mar, [facility] [address] [id number] [address] [place] [address], [place] [address] Mar, [facility] [address] [id number] [address] [place] [address], [place] [address] Mar, [facility] [address] [id number] [address] [place] [address], [place] [address] Feb, [facility] [address] [id number] [address] [place] [address], [place] [address] Feb, [facility] [address] [id number] [address] [place] [address], [place] [address] Feb, [facility] [address] [id number] [address] [place] [address], [place] [address] Feb, [facility] [address] [id number] [address] [place] [address], [place] [address] Feb, [facility] [address] [id number] [address] [place] [address] Feb, [facility] [address] [id number] [address] [place] [address], [place] [address] Jan, [facility] [address] [id number] [address] [place] [address], [place] [address] Jan, [facility] [address] [id number] [address] [place] [address], [place] [address] Jan, [facility] [address] [id number] [address] [place] [address], [place] [address] Jan, [facility] [address] [id number] [address] [place] [address], [place] [address] Jan, [facility] [address] [id number] [address] [place] [address], [place] [address] Jan, [facility] [address] [id number] [address] [place] [address], [place] [address] Dec, [facility] [address] [id number] [address] [place] [address] Dec, [facility] [address] [id number] [address] [place] [address], [place] [address] Nov, [facility] [address] [id number] [address] [place] [address], [place] [address] Nov, [facility] [address] [id number] [address] [place] [address], [place] [address] Oct, [facility] [address] [id number] [address] [place] [address], [place] [address] Oct, [facility] [address] [id number] [address] [place] [address], [place] [address] Oct, [facility] [address] [id number] [address] [place] [address], [place] [address] Oct, [facility] [address] [id number] [address] [place] [address], [place] [address] Oct, [facility] [address] [id number] [address] [place] [address], [place] [address] Oct, [facility] [address] [id number] [address] [place] [address], [place] [address] Sep, [facility] [address] [id number] [address] [place] [address], [place] [address] Sep, [facility] [address] [id number] [address] [place] [address], [place] [address] Sep, [facility] [address] [id number] [address] [place] [address], [place] [address] Sep, [facility] [address] [id number] [address] [place] [address], [place] [address] August, [facility] [address] [id number] [address] [place] [address], [place] [address] August, [facility] [address] [id number] [address] [place] [address], [place] [address] August, [facility] [address] [id number] [address] [place] [address], [place] [address] August, [facility] [address] [id number] [address] [place] [address], [place] [address] August, [facility] [address] [id number] [address] [place] [address], [place] [address] Jul, [facility] [address] [id number] [address] [place] [address], [place] [address] Jul, [facility] [address] [id number] [address] [place] [address], [place] [address] Jul, [facility] [address] [id number] [address] [place] [address], [place] [address] Jul, [facility] [address] [id number] [address] [place] [address], [place] [address] Jul, [facility] [address] [id number] [address] [place] [address], [place] [address] Jul, [facility] [address] [id number] [address] [place] [address], [place] [address] Jul, [facility] [address] [id number] [address] [place] [address], [place] [address] Jul, [facility] [address] [id number] [address] [place] [address], [place] [address] Jul, [facility] [address] [id number] [address] [place] [address], [place] [address] Jul, [facility] [address] [id number] [id number] Jun, [facility] [address] [id number] [address] [place] [address], [place] [address] Jun, [facility] [address] [id number] [address] [place] [address], [place] [address] Jun, [facility] [address] [id number] [address] [place] [address], [place] [address] Jun, [facility] [address] [id number] [address] [place] [address], [place] [address] Jun, [facility] [address] [id number] [address] [place] [address], [place] [address] May, [facility] [address] [id number] [address] [place] [address], [place] [address] May, [facility] [address] [id number] [address] [place] [address] May, [facility] [address] [id number] [address] [place] [address], [place] [address] Apr, [facility] [address] [id number] [address] [place] [address], [place] [address] Apr, [facility] [address] [id number] [address] [place] [address], [place] [address] Apr, [facility] [address] [id number] [address] [place] [address], [place] [address] Apr, [facility] [address] [id number] [address] [place] [address], [place] [address] Apr, [facility] [address] [id number] [address] [place] [address], [place] [address] Apr, [facility] [address] [id number] [address] [place] [address], [place] [address] Mar, [facility] [address] [id number] [address] [place] [address], [place] [address] Mar, [facility] [address] [id number] [address] [place] [address], [place] [address] Mar, [facility] [address] [id number] [address] [place] [address], [place] [address] Mar, [facility] [address] [id number] [address] [place] [address], [place] [address] Feb, [facility] [address] [id number] [address] [place] [address], [place] [address] Feb, [facility] [address] [id number] [address] [place] [address], [place] [address] Feb, [facility] [address] [id number] [address] [place] [address], [place] [address] Feb, [facility] [address] [id number] [address] [place] [address], [place] [address] Feb, [facility] [address] [id number] [address] [place] [address], [place] [address] Feb, [facility] [address] [id number] [address] [place] [address], [place] [address] Feb, [facility] [address] [id number] [address] [place] [address], [place] [address] Feb, [facility] [address] [id number] [address] [place] [address], [place] [address] Feb, [facility] [address] [id number] [address] [place] [address], [place] [address] Feb, [facility] [address] [id number] [address] [place] [address], [place] [address] Feb, [facility] [address] [id number] [address] [place] [address], [place] [address] Feb, [facility] [address] [id number] [address] [place] [address], [place] [address] Feb, [facility] [address] [id number] [address] [place] [address], [place] [address] Feb, [facility] [address] [id number] [address] [place] [address], [place] [address] Feb, [facility] [address] [id number] [address] [place] [address], [place] [address] Feb, [facility] [address] [id number] [address] [place] [address], [place] [address] Jan, [facility] [address] [id number] [address] [place] [address], [place] [address] Jan, [facility] [address] [id number] [address] [place] [address], [place] [address] Jan, [facility] [address] [id number] [address] [place] [address], [place] [address] Jan, [facility] [address] [id number] [address] [place] [address], [place] [address] Jan, [facility] [address] [id number] [address] [place] [address], [place] [address] Jan, [facility] [address] [id number] [address] [place] [address], [place] [address] Jan, [facility] [address] [id number] [address] [place] [address], [place] [address] 16 Jan, 2012 [facility] [address] [id number] [address] [place] [address], [place] [address] 16 Jan, 2012 [facility] [address] [id number] [address] [place] [address], [place] [address] 15 Jan, 2012 [facility] [address] [id number] [address] [place] [address], [place] [address] 15 Jan, 2012 [facility] [address] [id number] [address] [place] [address], [place] [address] Jan, [facility] [address] [id number] [address] [place] [address] [address] 26 Sep2011 [facility] [address] [id number] [address] [place] [address], [place] [address] 26 Sep2011 [facility] [address] [id number] [address] [place] [address], [place] [address] 24 Sep2011 [facility] [address] [id number] [address] [place] [address], [place] [address] 23 Sep, 2011 [facility] [address] [id number] [address] [place] [address] 22 Sep, 2011 [facility] [address] [id number] [address] [place] [address], [place] [address] 21 Sep2011 [facility] [address] [id number] [address] [place] [address], [place] [address] 20 Sep, 2011 [facility] [address] [id number] [address] [place] [address], [place] [address] 20 Dec, 2011 [facility] [address] [id number] [address] [place] [address], [place] [address] 07 Dec, 2011 [facility] [address] [id number] [address] [place] [address], [place] [address] 06 Sep, 2011 [facility] [address] [id number] [address] [place] [address], [place] [address] 06 Dec, 2011 [facility] [address] [id number] [address] [place] [address], [place] [address] 05 Dec, 2011 [facility] [address] [id number] [address] [place] [address], [place] [address] 23 Nov, 2011 [facility] [address] [id number] [address] [place] [address], [place] [address] 17 Nov, 2011 [facility] [address] [id number] [address] [place] [address], [place] [address] Nov, [facility] [address] [id number] [address] [place] [address], [place] [address] Nov, [facility] [address] [id number] [address] [place] [address], [place] [address] Nov, [facility] [address] [id number] [address] [place] [address], [place] [address] Nov, [facility] [address] [id number] [address] [place] [address], [place] [address] Nov, [facility] [address] [id number] [address] [place] [address], [place] [address] Nov, [facility] [address] [id number] [address] [place] [address], [place] [address] Oct, [facility] [address] [id number] [address] [place] [address], [place] [address] Oct, [facility] [address] [id number] [address] [place] [address], [place] [address] Oct, [facility] [address] [id number] [address] [place] [address], [place] [address] Oct, [facility] [address] [id number] [address] [place] [address], [place] [address] Oct, [facility] [address] [id number] [address] [place] [address], [place] [address] Oct, [facility] [address] [id number] [address] [place] [address], [place] [address] Oct, [facility] [address] [id number] [address] [place] [address], [place] [address] Sep, [facility] [address] [id number] [address] [place] [address], [place] [address] Sep, [facility] [address] [id number] [address] [place] [address], [place] [address] August, [facility] [address] [id number] [address] [place] [address], [place] [address] August, [facility] [address] [id number] [address] [place] [address], [place] [address] August, [facility] [address] [id number] [address] [place] [address], [place] [address] August, [facility] [address] [id number] [address] [place] [address], [place] [address] Jul, [facility] [address] [id number] [address] [place] [address], [place] [address] Jul, [facility] [address] [id number] [address] [place] [address], [place] [address] Jul, [facility] [address] [id number] [address] [place] [address], [place] [address] Jul, [facility] [address] [id number] [address] [place] [address], [place] [address] Jul, [facility] [address] [id number] [address] [place] [address], [place] [address] Jul, [facility] [address] [id number] [address] [place] [address], [place] [address] Jul, [facility] [address] [id number] [address] [place] [address], [place] [address] Jul, [facility] [address] [id number] [address] [place] [address], [place] [address] Jul, [facility] [address] [id number] [address] [place] [address], [place] [address] 23 Jun, 2011 [facility] [address] [id number] [address] [place] [address], [place] [address] 19 Jun, 2011 [facility] [address] [id number] [address] [place] [address], [place] [address] 15 Jun, 2011 [facility] [address] [id number] [address] [place] [address], [place] [address] 14 Jun, 2011 [facility] [address] [id number] [address] [place] [address], [place] [address] Jun, [facility] [address] [id number] [address] [place] [address], [place] [address] Jun, [facility] [address] [id number] [address] [place] [address], [place] [address] Jun, [facility] [address] [id number] [address] [place] [address], [place] [address] 25 May, 2011 [facility] [address] [id number] [address] [place] [address], [place] [address] 24 May, 2011 [facility] [address] [id number] [address] [place] [address], [place] [address] 16 May, 2011 [facility] [address] [id number] [address] [place] [address], [place] [address] May, [facility] [address] [id number] [address] [place] [address], [place] [address] May, [facility] [address] [id number] [address] [place] [address], [place] [address] Apr, [facility] [address] [id number] [address] [place] [address], [place] [address] 19 Apr, 2011 [facility] [address] [id number] [address] [place] [address], [place] [address] 13 Apr, 2011 [facility] [address] [id number] [address] [place] [address], [place] [address] Apr, [facility] [address] [id number] [address] [place] [address], [place] [address] 05 Apr, 2011 [facility] [address] [id number] [address] [place] [address], [place] [address] Mar, [facility] [address] [id number] [address] [place] [address], [place] [address] Mar, [facility] [address] [id number] [address] [place] [address], [place] [address] Mar, [facility] [address] [id number] [address] [place] [address], [place] [address] Mar, [facility] [address] [id number] [address] [place] [address], [place] [address] Mar, [facility] [facility] [address] [id number] [address] [place] [address], [place] [address] Mar, [facility] [address] [id number] [address] [place] [address], [place] [address] Mar, [facility] [address] [id number] [address] [place] [address], [place] [address] Feb, [facility] [address] [id number] [address] [place] [address], [place] [address] Feb, [facility] [address] [id number] [address] [place] [address], [place] [address] Feb, [facility] [address] [id number] [address] [place] [address], [place] [address] Feb, [facility] [address] [id number] [address] [place] [address], [place] [address] Jan, [facility] [address] [id number] [address] [place] [id number] Jan, [facility] [address] [id number] [address] [place] [phone] Jan, [facility] [address] [id number] [address] [place] [phone] Jan, [facility] [address] [id number] [address] [place] [id number] Nov, [facility] [address] [id number] [address] [place] [id number] Mar, [facility] [address] [id number] [address] [place] [id number] Mar, [facility] [address] [id number] [address] [place] [id number] Mar, [facility] [address] [id number] [address] [place] [address] Mar, [facility] [address] [id number] [address] [place] [id number] Mar, [facility] [address] [id number] [address] [place] [id number] Mar, [facility] [address] [id number] [address] [place] [id number] Feb, [facility] [address] [id number] [address] [place] [id number] Feb, [facility] [address] [id number] [address] [place] [phone] Jan, [facility] [address] [id number] [address] [place] [id number] Jan, [facility] [address] [id number] [address] [place] [phone] Jan, IMMUNIZATIONS No Known Immunizations SOCIAL HISTORY [...] History CPAP Noncompliance_ Dr. Madden advises a Zift[employer] driving. Medical History Bacterial meningitis 12/2016 Medical [...] 09-2015 & 2007 Surgical History Bladder surgery [facility] 03/2016 Surgical History Neurotransmitter placed 10/2017 Surgical History retninal repair 12/31/2017 Surgical History cataract surgery 2018 Surgical History cataract surgery 2019 Surgical History SCS trial x7 days 2019 Hospitalization History Surgeries Only Hospitalization History bacterial meningitis December 2016 Hospitalization History [facility] psych for SI 1988 Hospitalization History [facility]-Altered mental status 05/2017 Hospitalization History sepsis, UTI, headache 08/03/2018-
--- OUTSIDE RECORDS SUMMARY | 2019-08-01 10:36 | XMS REPORT ---
Author Author Lola Tyson Doctor Organization [facility] Address Unknown Phone Unavailable Care Team Providers Care Brilliandeer Looper Name Role Phone Migration, Doctor Unavailable Unavailable PROBLEMS Type Condition ICD9-CM Code XEI80-SP Code Onset Dates Condition S tatus SNOMED Code Problem Restless leg G25.81 Active 4810065 8 Problem Insomnia G47.00 Active 707980399 Problem Hypothyroid E03.9 Active 92898839 Problem Palpitations R00.2 Active 0749728 2 Problem Asthma J45.909 Active 461492406 Problem Chronic kidney disease, stage 4 (severe) N18.4 Active 773491575 Problem Depressed F32.9 Active 53709402 Problem Primary osteoarthritis of left knee M17.12 Active 658675337 Problem Generalized anxiety disorder F41.1 A ctive 90253728 Problem Anemia in chronic kidney disease D63.1 Active [id number] Problem Low back pain M54.5 Active 003700 009 Problem Coronary artery disease invo lving hoopa coronary artery of hoopa heart, angina presence unspecified I25.10 Active 2312549236988 Problem Dysthymic disorder F34.1 Active 7 1199776 Problem Other seasonal allergic rhinitis J30.2 Active 287614635 Problem History of anemia Z86.2 Active 27 6215560 Problem Fibromyalgia M79.7 Active 3013203 05 Problem Hypokalemia E87.6 Active 94916232 Problem Vitamin D deficiency E55.9 Active 47915055 Problem Mixed stress and urge urinary incontinence N39.46 Active 752309498 Problem Chronic kidney disease, unspecified N18.9 Active 506275051 Problem Abnormal chest CT R93.8 Active 44 8227735 Problem Essential (primary) hypertension I10 Active 27207224 Problem Long-term use of high-risk medication Z79.899 Active 065844431 Problem Degenerative tear of medial meniscus of left knee M23.204 Active 920814752 Problem Mood disorder F39 Active 947052 05 Problem Stage 3 chronic kidney disease N18.3 Active 371624175 Problem Perimenopausal vasomotor symptoms N95.1 Active 288062544 Problem History of colon polyps Z86.010 Active 758795629 Problem Other chronic pain G89.29 Active 8 2275146 Problem Functional diarrhea K59.1 Active 72747216 Problem Asthma with acute exacerbation in adult J45.901 Active 254596085 Problem Body mass index (BMI) of 40.0-44.9 in adult Z68.41 Active 882674886 Problem Seasonal allergic rhinitis due to pollen J30.1 Active 84695278 Problem Restless leg syndrome G25.81 Active 98344445 Problem Chronic pain syndrome G89.4 Active 994640619 ALLERGIES No Information ENCOUNTERS Encounter Location Date Diagnosis [facility] [address] [facility] [id number] [address] [place] [id number] Dec, [facility] [address] [facility] [id number] [address] [place] [phone] Nov, [facility] [address] [facility] [id number] [address] [place] [address] Oct, [facility] [address] [facility] [id number] [address] [place] [address] Oct, Cellulitis of left lower ext remity L03.116 and Morbid obesity E66.01 [facility] [address] [facility] [id number] [address] [place] [id number] Oct, [facility] [address] [facility] [id number] [address] [place] [phone] Oct, [facility] [address] [facility] [id number] [address] [place] [phone] Oct, Generalized anxiety disorder F41.1 and Major depressive disorder, recurrent episode with anxious distress F33.9 [facility] [address] [facility] [id number] [address] [place] [phone] Oct, [facility] [address] [facility] [id number] [address] [place] [phone] Oct, Chronic pain syndrome G89.4 [facility] [address] [facility] [id number] [address] [place] [id number] Oct, Chronic pain syndrome G89.4 [facility] [address] [facility] [id number] [address] [place] [phone] Oct, UTI symptoms R39.9 ; Acute c ystitis without hematuria N30.00 and Morbid obesity E66.01 [facility] [address] [facility] [id number] [address] [place] [phone] Oct, [facility] [address] [facility] [id number] [address] [place] [id number] Oct, Chronic pain syndrome G89.4 [facility] [address] [facility] [id number] [address] [place] [phone] Sep, [facility] [address] [facility] [id number] [address] [place] [address] Sep, Generalized anxiety disorder F41.1 and Major depressive disorder, recurrent episode with anxious distress F33.9 [facility] [address] [facility] [id number] [address] [place] [id number] Sep, Chronic kidney disease, stag e 4 (severe) N18.4 [facility] [address] [facility] [id number] [address] [place] [phone] Sep, Fibromyalgia M79.7 and Chron ic pain syndrome G89.4 [facility] [address] [facility] [id number] [address] [place] [phone] Sep, [address] [address] Sep, Chronic pain syndrome G89.4 [facility] [address] [facility] [id number] [address] [place] [phone] Sep, [facility] [address] [facility] [id number] [address] [place] [address] Sep, Chronic pain syndrome G89.4 ; Fibromyalgia M79.7 and Morbid obesity E66.01 [facility] [address] [facility] [id number] [address] [place] [phone] August, Generalized anxiety disorder F41.1 and Major depressive disorder, recurrent episode with anxious distress F33.9 [facility] [address] [id number] [address] [place] [address] August, Fibromyalgia M79.7 [facility] [address] [id number] [address] [place] [address] August, Restless leg syndrome G25.81 ; Vitamin D deficiency E55.9 ; Urinary tract infection without hematuria, site unspecified N39.0 ; Pain in right shoulder M25.511 ; Other chronic pain G89.29 ; Biceps tendinitis on right M75.21 and Morbid obesity E66.01 [facility] [address] [id number] [address] [place] [address] Jul, Urinary tract infection with out hematuria, site unspecified N39.0 and Morbid obesity E66.01 [facility] [address] [id number] [address] [place] [phone] Jul, [facility] [address] [id number] [address] [place] [phone] Jul, [facility] [address] [id number] [address] [place] [address] Jul, Fibromyalgia M79.7 [facility] [address] [id number] [address] [place] [address] Jul, Acute pain of right shoulder M25.511 [facility] [address] [id number] [address] [place] [address] Jul, Acute pain of right shoulder M25.511 and Morbid obesity E66.01 [facility] [address] [id number] [address] [place] [address] Jun, [facility] [address] [id number] [address] [place] [phone] 14 Jun, 2018 Generalized anxiety disorder F41.1 and Major depressive disorder, recurrent episode with anxious distress F33.9 [facility] [address] [id number] [address] [place] [phone] 11 Jun, 2018 [facility] [id number] [place] [address] 06 Jun, 2018 Fibromyalgia M79.7 [facility] [address] [place] [id number] [address] [place] [id number] 04 Jun, 2018 Acute pain of right shoulder M25.511 ; Acute pain of right hip M25.551 and Morbid obesity E66.01 [place] [address] [place] [id number] [address] [place] [address] 11 May, 2018 Burning with urination R30.0 ; Vaginal discharge N89.8 ; Chronic kidney disease, stage 4 (severe) N18.4 ; Body mass index (BMI) of 40.0-44.9 in adult Z68.41 and Morbid obesity E66.01 [place] [address] [address] 07 May, 2018 Fibromyalgia M79.7 [place] [address] [id number] 06 May, 2018 Generalized anxiety disorder F41.1 and Major depressive disorder, recurrent episode with anxious distress F33.9 [place] [id number] [place] [address] 24 Apr, 2018 [place] [address] [place] [id number] [address] [place] [phone] Apr, Fibromyalgia M79.7 [facility] [address] [place] [id number] [address] [place] [phone] 14 Mar, 2018 Acute UTI N39.0 and Dysuria R30.0 [place] [address] [id number] 10 Mar, 2018 Fibromyalgia M79.7 [facility] [address] [place] [id number] [address] [place] [phone] 15 Feb, 2018 [place] [address] [place] [id number] [address] [place] [id number] 14 Feb, 2018 [facility] [address] [facility] [id number] [address] [place] [id number] Feb, [facility] [address] [facility] [id number] [address] [place] [phone] Feb, Fibromyalgia M79.7 [facility] [address] [facility] [id number] [address] [place] [phone] 08 Feb, 2018 Complicated UTI (urinary tra ct infection) N39.0 [facility] [address] [id number] [address] [place] [phone] Feb, [facility] [address] [facility] [id number] [address] [place] [phone] Jan, Generalized anxiety disorder F41.1 and Major depressive disorder, recurrent episode with anxious distress F33.9 [facility] [address] [facility] [id number] [address] [place] [id number] Jan, Acute conjunctivitis of left eye, unspecified acute conjunctivitis type H10.32 [facility] [address] [facility] [id number] [address] [place] [phone] Jan, [facility] [address] [facility] [id number] [address] [place] [phone] Jan, Acute non-recurrent maxillar y sinusitis J01.00 ; Dysuria R30.0 ; Perimenopausal vasomotor symptoms N95.1 and Fibromyalgia M79.7 [facility] [address] [facility] [id number] [address] [place] [id number] 28 Dec, 2017 Vitamin D deficiency E55.9 [facility] [address] [facility] [id number] [address] [place] [id number] 27 Dec, 2017 Vitamin D deficiency E55.9 [facility] [address] [facility] [id number] [address] [place] [id number] 24 Dec, 2017 Vitamin D deficiency E55.9 [facility] [address] [facility] [id number] [address] [place] [id number] Dec, [facility] [address] [id number] [address] [place] [phone] Dec, Fibromyalgia M79.7 [facility] [address] [id number] [address] [place] [phone] Nov, [facility] [address] [id number] [address] [place] [phone] Nov, [facility] [address] [id number] [address] [place] [phone] Nov, [facility] [address] [id number] [address] [place] [phone] Nov, Fibromyalgia M79.7 ; Vision changes H53.9 ; Chest wall pain R07.89 and Chronic pain syndrome G89.4 [facility] [address] [id number] [address] [place] [phone] Nov, [facility] [address] [id number] [address] [place] [phone] Nov, Rash of hands R21 [facility] [address] [id number] [address] [place] [phone] Nov, Generalized anxiety disorder F41.1 and Major depressive disorder, recurrent episode with anxious distress F33.9 [facility] [address] [id number] [address] [place] [phone] Nov, Fibromyalgia M79.7 [facility] [address] [id number] [address] [place] [id number] Nov, Complicated UTI (urinary tra ct infection) N39.0 [facility] [address] [id number] [address] [place] [id number] Oct, [facility] [address] [id number] [address] [place] [phone] Oct, Generalized anxiety disorder F41.1 and Major depressive disorder, recurrent episode with anxious distress F33.9 [facility] [address] [id number] [address] [place] [id number] Oct, [facility] [address] [facility] [id number] [address] [place] [id number] Oct, Fibromyalgia M79.7 [facility] [address] [facility] [id number] [address] [place] [phone] Sep, Restless leg syndrome G25.81 and Restless leg G25.81 [facility] [address] [facility] [id number] [address] [place] [id number] Sep, [facility] [address] [facility] [id number] [address] [place] [phone] Sep, Seasonal allergic rhinitis d ue to pollen J30.1 ; Screening for breast cancer Z12.31 ; Chest pain at rest R07.9 ; Restless leg syndrome G25.81 ; Essential (primary) hypertension I10 and Depressed F32.9 [facility] [address] [facility] [id number] [address] [place] [phone] August, Fibromyalgia M79.7 [facility] [address] [facility] [id number] [address] [place] [id number] August, [facility] [address] [place] [id number] [address] [place] [id number] August, [facility] [address] [place] [id number] [address] [place] [phone] August, Abnormal chest [address] R93.8 [facility] [address] [facility] [id number] [address] [place] [id number] August, Generalized anxiety disorder F41.1 and Major depressive disorder, recurrent episode with anxious distress F33.9 [facility] [address] [facility] [id number] [address] [place] [address] August, Abnormal chest [address] R93.8 [facility] [address] [facility] [id number] [address] [place] [phone] Jul, [facility] [address] [place] [id number] [address] [place] [id number] Jul, Chronic kidney disease, stag e 4 (severe) N18.4 [facility] [address] [address] Jul, [facility] [address] [place] [id number] [place] [address] Jul, Restless leg G25.81 ; Mixed stress and urge urinary incontinence N39.46 and Fibromyalgia M79.7 [facility] [address] [place] [id number] [place] [address] Jul, Chronic kidney disease, stag e 4 (severe) N18.4 [facility] [address] [address] Jun, Orthostatic hypotension I95. 1 ; Chronic kidney disease, stage 4 (severe) N18.4 ; Chest wall discomfort R07.89 and Body mass index (BMI) of 40.0- 44.9 in adult Z68.41 [place] [address] [address] Jun, [facility] [address] [address] Jun, Orthostatic hypotension I95. 1 [facility] [address] [address] Jun, [facility] [address] [place] [id number] [place] [id number] Jun, Orthostatic hypotension I95. 1 ; Dysuria R30.0 and Acute cystitis without hematuria N30.00 [facility] [address] [address] Jun, [facility] [address] [place] [id number] [place] [address] Jun, Chronic kidney disease, stag e 4 (severe) N18.4 [facility] [address] [place] [id number] [address] [place] [id number] Jun, Fibromyalgia M79.7 [facility] [address] [facility] [id number] [address] [place] [phone] Jun, [facility] [address] [facility] [id number] [address] [place] [address] Jun, [facility] [address] [facility] [id number] [address] [place] [address] May, Abnormal chest CT R93.8 and Stage 3 chronic kidney disease N18.3 [facility] [address] [facility] [id number] [address] [place] [address] May, Chronic kidney disease, stag e 4 (severe) N18.4 [facility] [address] [facility] [id number] [address] [place] [address] May, Chronic kidney disease, stag e 4 (severe) N18.4 [facility] [address] [facility] [id number] [address] [place] [phone] May, Abnormal chest [address] R93.8 [facility] [address] [facility] [id number] [address] [place] [phone] May, [facility] [address] [facility] [id number] [address] [place] [phone] May, [facility] [address] [facility] [id number] [address] [place] [phone] May, Generalized anxiety disorder F41.1 and Major depressive disorder, recurrent episode with anxious distress F33.9 [facility] [address] [facility] [id number] [address] [place] [address] May, Mood disorder F39 [facility] [address] [facility] [id number] [address] [place] [address] Apr, [facility] [address] [facility] [id number] [address] [place] [address] Apr, Infected skin lesion L08.9 a nd Muscle strain of right shoulder region, initial encounter S46.911A [facility] [address] [id number] [address] [place] [address] Apr, Generalized anxiety disorder F41.1 and Major depressive disorder, recurrent episode with anxious distress F33.9 [facility] [address] [id number] [address] [place] [id number] Apr, [facility] [address] [id number] [address] [place] [address] Apr, Recent urinary tract infecti on Z87.440 and Hypothyroid E03.9 [facility] [address] [id number] [address] [place] [address] Apr, Generalized anxiety disorder F41.1 and Major depressive disorder, recurrent episode with anxious distress F33.9 [facility] [address] [id number] [address] [place] [address] Apr, Recent urinary tract infecti on Z87.440 [facility] [address] [id number] [address] [place] [address] Mar, [facility] [address] [id number] [address] [place] [address] Mar, Dysuria R30.0 ; Acute cystit is without hematuria N30.00 and BMI 40.0-44.9, adult Z68.41 [facility] [address] [id number] [address] [place] [address] Mar, [facility] [address] [id number] [address] [place] [address] Mar, [facility] [address] [id number] [address] [place] [address] Mar, Generalized anxiety disorder F41.1 and Major depressive disorder, recurrent episode with anxious distress F33.9 [facility] [address] [id number] [address] [place] [phone] Feb, Conjunctivitis, bacterial H1 0.9 [facility] [address] [facility] [id number] [address] [place] [phone] Feb, [facility] [address] [facility] [id number] [place] [phone] Feb, Conjunctivitis, bacterial H1 0.9 [facility] [address] [place] [id number] [place] [phone] Feb, [facility] [address] [place] [id number] [place] [address] Feb, Dysuria R30.0 ; Acute cystit is N30.00 and BMI 40.0-44.9, adult Z68.41 [place] [address] [address] Feb, [place] [address] [address] Feb, Generalized anxiety disorder F41.1 and Major depressive disorder, recurrent episode with anxious distress F33.9 [place] [address] [address] Feb, Mood disorder F39 and BMI 40 .0-44.9, adult Z68.41 [place] [address] [place] [id number] [place] [address] Jan, [place] [address] [address] Jan, [place] [address] [address] Jan, Hypothyroid E03.[address] [address] Jan, [place] [address] [place] [id number] [place] [id number] Jan, Chronic kidney disease, unsp ecified N18.9 ; Hypokalemia E87.6 ; Essential (primary) hypertension I10 ; Fibromyalgia M79.7 ; Coronary artery disease involving hoopa coronary artery of hoopa heart, angina presence unspecified I25.10 ; Hypothyroid E03.9 and Encounter for immunization Z23 [facility] [address] [facility] [id number] [address] [place] [address] 04 Jan, 2017 Hypothyroid E03.9 [facility] [address] [facility] [id number] [address] [place] [phone] Jan, [facility] [address] [facility] [id number] [address] [place] [id number] 28 Dec, 2016 Vitamin D deficiency E55.9 [facility] [address] [facility] [id number] [address] [place] [id number] 28 Dec, 2016 Primary osteoarthritis of le ft knee M17.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 [place] [address] [facility] [id number] [address] [place] [id number] 19 Dec, 2016 Fibromyalgia M79.7 [facility] [address] [facility] [id number] [address] [place] [id number] 18 Dec, 2016 Mood disorder F39 [place] [address] [address] [facility] [id number] [address] [place] [id number] 13 Dec, 2016 [place] [address] [facility] [id number] [address] [place] [id number] 13 Dec, 2016 Generalized anxiety disorder F41.1 and Major depressive disorder, recurrent episode with anxious distress F33.9 [facility] [address] [facility] [id number] [address] [place] [phone] 11 Dec, 2016 [facility] [address] [facility] [id number] [address] [place] [id number] 08 Dec, 2016 Streptococcal meningitis G00 .2 [facility] [address] [facility] [id number] [address] [place] [id number] 07 Dec, 2016 Streptococcal meningitis G00 .2 [place] [address] [facility] [id number] [address] [place] [address] Dec, [facility] [address] [facility] [id number] [address] [place] [address] Dec, Streptococcal meningitis G00 .2 [facility] [address] [facility] [id number] [address] [place] [address] Dec, [facility] [address] [facility] [id number] [address] [place] [phone] Dec, Major depressive disorder, r ecurrent episode with anxious distress F33.9 [facility] [address] [facility] [id number] [address] [place] [address] Nov, Fever, unspecified fever cau se R50.9 [facility] [address] [facility] [id number] [address] [place] [id number] Nov, [place] [address] [place] [id number] [address] [place] [address] Nov, Hypothyroid E03.9 [facility] [address] [place] [id number] [address] [place] [id number] Nov, Generalized anxiety disorder F41.1 and Major depressive disorder, recurrent episode with anxious distress F33.9 [place] [address] [place] [id number] [address] [place] [address] Nov, [facility] [address] [place] [id number] [address] [place] [id number] Oct, Dental examination Z01.20 [facility] [address] [place] [id number] [address] [place] [id number] Oct, Generalized anxiety disorder F41.1 and Major depressive disorder, recurrent episode with anxious distress F33.9 [facility] [address] [place] [id number] [address] [place] [address] Oct, Chronic kidney disease, stag e 4 (severe) N18.4 [facility] [address] [place] [id number] [address] [place] [address] Oct, [facility] [address] [place] [id number] [address] [place] [phone] Oct, Fibromyalgia M79.7 [facility] [address] [facility] [id number] [address] [place] [address] Oct, [facility] [address] [facility] [id number] [address] [place] [address] Oct, Generalized anxiety disorder F41.1 ; Major depressive disorder, recurrent episode with anxious distress F33.9 and Bipolar disorder, current episode manic without psychotic features F31.10 [facility] [address] [facility] [id number] [address] [place] [address] Sep, [place] [address] [facility] [id number] [address] [place] [address] Sep, [place] [address] [place] [id number] [address] [place] [address] Sep, Vitamin D deficiency E55.9 [place] [address] [place] [id number] [address] [place] [address] Sep, Vitamin D deficiency E55.9 [place] [address] [place] [id number] [address] [place] [address] Sep, [place] [address] [facility] [id number] [address] [place] [address] Sep, Chronic kidney disease, stag e 4 (severe) N18.4 ; Hypothyroid E03.9 ; Restless leg G25.81 ; Fibromyalgia M79.7 ; Essential (primary) hypertension I10 ; Vitamin D deficiency E55.9 ; Dyspepsia R10.13 ; Anemia in chronic kidney disease D63.1 ; Chronic kidney disease, unspecified N18.9 ; Coronary artery disease involving hoopa coronary artery of hoopa heart, angina presence unspecified I25.10 ; Screening breast examination Z12.39 and Low back pain M54.5 [facility] [address] [place] [id number] [address] [place] [address] August, Generalized anxiety disorder F41.1 and Major depressive disorder, recurrent episode with anxious distress F33.9 [facility] [address] [facility] [id number] [address] [place] [address] August, Generalized anxiety disorder F41.1 and Major depressive disorder, recurrent episode with anxious distress F33.9 [facility] [address] [facility] [id number] [address] [place] [address] August, Fibromyalgia M79.7 [facility] [address] [place] [id number] [address] [place] [address] Jul, Generalized anxiety disorder F41.1 and Major depressive disorder, recurrent episode with anxious distress F33.9 [place] [address] [facility] [id number] [address] [place] [address] Jul, Fibromyalgia M79.7 [place] [id number] [facility] [id number] [address] [place] [address] Jul, Generalized anxiety disorder F41.1 [place] [address] [place] [id number] [address] [place] [address] May, [place] [address] [place] [id number] [address] [place] [address] May, Hypothyroid E03.9 [place] [address] [place] [id number] [address] [place] [address] May, Chronic kidney disease, stag e 4 (severe) N18.4 ; Hypothyroid E03.9 ; Restless leg G25.81 ; Fibromyalgia M79.7 ; Essential (primary) hypertension I10 ; Vitamin D deficiency E55.9 ; Dyspepsia R10.13 ; Acute non-recurrent maxillary sinusitis J01.00 ; Anemia in chronic kidney disease D63.1 ; Chronic kidney disease, unspecified N18.9 and Coronary artery disease involving hoopa coronary artery of hoopa heart, angina presence unspecified I25.10 [place] [address] [facility] [id number] [address] [place] [address] May, Vitamin D deficiency, unspec ified E55.9 [place] [address] [place] [id number] [address] [place] [address] May, Generalized anxiety disorder F41.1 and Major depressive disorder, recurrent episode with anxious distress F33.9 [facility] [address] [facility] [id number] [address] [place] [address] Apr, Pain in right knee M25.561 a nd Pain in left knee M25.562 [facility] [address] [facility] [id number] [address] [place] [address] Apr, [facility] [address] [facility] [id number] [address] [place] [address] Apr, [facility] [address] [facility] [id number] [address] [place] [address] Apr, [facility] [address] [facility] [id number] [address] [place] [address] Mar, Generalized anxiety disorder F41.1 and Major depressive disorder, recurrent episode with anxious distress F33.9 [facility] [address] [facility] [id number] [address] [place] [address] Mar, Generalized anxiety disorder F41.1 and Major depressive disorder, recurrent episode with anxious distress F33.9 [facility] [address] [facility] [id number] [address] [place] [address] Mar, [facility] [address] [facility] [id number] [address] [place] [address] Mar, [facility] [address] [facility] [id number] [address] [place] [address] Mar, [facility] [address] [facility] [id number] [address] [place] [address] Mar, Asthma J45.909 and Fibromyal elvira M79.7 [facility] [address] [facility] [id number] [address] [place] [address] Mar, Chronic kidney disease, stag e 4 (severe) N18.4 ; Vitamin D deficiency E55.9 and Essential (primary) hypertension I10 [facility] [address] [address] Feb, [facility] [address] [address] Feb, Dysuria R30.0 ; Mixed stress and urge urinary incontinence N39.46 ; Fibromyalgia M79.7 and Chronic kidney disease, stage IV (severe) N18.4 [place] [address] [address] Feb, Chronic kidney disease, stag e 4 (severe) N18.4 [place] [address] [address] Feb, Chronic kidney disease, stag e 4 (severe) N18.4 [place] [address] [address] Feb, [place] [address] [address] Feb, Vitamin D deficiency, unspec ified E55.9 [place] [address] [address] Jan, [facility] [address] [address] Jan, [place] [address] [address] Dec, [facility] [address] [address] Dec, Chronic kidney disease, stag e 4 (severe) N18.4 [facility] [address] [address] Dec, Dysthymic disorder F34.1 and Generalized anxiety disorder F41.1 [place] [address] [address] Dec, [facility] [address] [place] [id number] [address] [place] [address] Dec, [facility] [address] [address] Dec, Dysthymic disorder F34.1 and Generalized anxiety disorder F41.1 [facility] [address] [address] Dec, Dysuria R30.0 ; Chronic kidn ey disease, stage 4 (severe) N18.4 ; Hypertension I10 ; Dyspepsia R10.13 ; Yeast dermatitis B37.2 ; Palpitations R00.2 ; Hypothyroid E03.9 ; Functional diarrhea K59.1 and Other seasonal allergic rhinitis J30.2 [facility] [address] [place] [id number] [place] [address] Dec, [facility] [address] [address] Nov, Dysuria R30.0 and Stress inc ontinence N39.3 [facility] [id number] [place] [address] Nov, [place] [address] [address] Nov, [place] [address] [address] Nov, Osteoarthritis of knees, jose ateral M17.0 [facility] [address] [place] [id number] [address] [place] [address] Nov, Dysthymic disorder F34.1 and Generalized anxiety disorder F41.1 [place] [address] [address] Nov, [place] [address] [place] [id number] [address] [place] [address] Nov, [facility] [address] [address] Nov, Urgency of urination R39.15 [place] [address] [address] Nov, [place] [address] [address] Nov, Chronic kidney disease, stag e 4 (severe) N18.4 [place] [address] [address] Oct, Hypertension I10 ; Coronary artery disease involving hoopa coronary artery of hoopa heart, angina presence unspecified I25.10 ; Palpitations R00.2 ; Hypothyroid E03.9 ; Right foot pain M79.671 ; Functional diarrhea K59.1 and Other seasonal allergic rhinitis J30.2 [place] [address] [address] Oct, Dysthymic disorder F34.1 and Generalized anxiety disorder F41.1 [place] [address] [address] Sep, [place] [address] [address] Sep, [place] [address] [address] Sep, [place] [address] [address] Sep, [facility] [address] [address] Sep, [place] [address] [address] Sep, Dysthymic disorder F34.1 and Generalized anxiety disorder F41.1 [place] [address] [place] [id number] [place] [address] Sep, Asthma with acute exacerbati on in adult J45.901 ; Dysuria R30.0 ; Chronic kidney disease, stage 4 (severe) N18.4 and History of anemia Z86.2 [place] [id number] [facility] [id number] [address] [place] [address] Sep, Generalized anxiety disorder F41.1 and Dysthymic disorder F34.1 [place] [address] [facility] [id number] [address] [place] [address] August, Screening breast examination Z12.39 and Acute recurrent maxillary sinusitis J01.01 [place] [address] [facility] [id number] [address] [place] [address] August, Osteoarthritis of knees, jose ateral M17.0 [place] [address] [facility] [id number] [address] [place] [address] August, Chronic kidney disease, stag e 4 (severe) N18.4 ; Acute non- recurrent maxillary sinusitis J01.00 ; Urinary problem R39.89 ; Bowel habit changes R19.4 ; Functional diarrhea K59.1 and History of colon polyps Z86.010 [place] [address] [place] [id number] [address] [place] [address] Jul, Dysthymic disorder F34.1 and Generalized anxiety disorder F41.1 [place] [address] [facility] [id number] [address] [place] [address] Jul, [place] [address] [facility] [id number] [address] [place] [address] Jul, Dysthymic disorder F34.1 ; G eneralized anxiety disorder F41.1 and senior care use of drug Z79.899 [place] [address] [facility] [id number] [address] [place] [address] Jul, [place] [address] [place] [id number] [address] [place] [address] 16 Jun, 2015 [place] [address] [place] [id number] [address] [place] [address] Jun, [place] [address] [place] [address] May, [facility] [address] [address] May, Dysthymic disorder F34.1 and Generalized anxiety disorder F41.1 [place] [address] [place] [id number] [address] [place] [address] Apr, Kidney disease N28.9 [place] [address] [address] Apr, Generalized anxiety disorder F41.1 and Dysthymic disorder F34.1 [place] [address] [address] Apr, Chronic kidney disease, stag e 4 (severe) N18.4 [place] [address] [address] Apr, Generalized anxiety disorder F41.1 ; Major depression, recurrent F33.9 and Sleep disturbance G47.9 [place] [address] [address] Mar, Generalized anxiety disorder F41.1 and Dysthymic disorder F34.1 [place] [address] [address] Mar, Generalized anxiety disorder F41.1 ; Dysthymic disorder F34.1 and Insomnia G47.00 [place] [address] [place] [address] Mar, [place] [address] [place] [id number] [address] [place] [address] Mar, [place] [address] [address] Mar, Osteoarthritis of knees, jose ateral M17.0 [place] [address] [place] [id number] [address] [place] [address] Mar, Hypertension I10 ; Hypothyro id E03.9 ; Dysthymic disorder F34.1 ; Chronic kidney disease, stage 4 (severe) N18.4 and Nausea & vomiting R11.2 [place] [address] [address] Mar, Generalized anxiety disorder F41.1 ; Dysthymic disorder F34.1 and Insomnia G47.00 [place] [address] [address] Mar, Dehydration E86.0 ; Chronic kidney disease, stage 4 (severe) N18.4 and Nausea & vomiting R11.2 [facility] [address] [address] Mar, Gastroenteritis K52.9 [place] [address] [address] Mar, [place] [address] [address] Mar, [place] [address] [address] Feb, Dysthymic disorder F34.1 and Generalized anxiety disorder F41.1 [place] [address] [address] Jan, UTI (urinary tract infection ) N39.0 ; Asthma J45.909 ; Coronary artery disease involving hoopa coronary artery of hoopa heart, angina presence unspecified I25.10 ; Hypertension I10 ; Hypothyroid E03.9 ; Vitamin D deficiency E55.9 ; Insomnia G47.00 ; Palpitations R00.2 ; Depressed F32.9 ; Restless leg G25.81 and Anxiety F41.9 [place] [address] [address] Jan, Dysthymic disorder F34.1 and Generalized anxiety disorder F41.1 [place] [address] [address] Jan, [place] [address] [address] Dec, [place] [address] [address] Dec, Alkalosis 276.3 ; Chronic ki dney disease, Stage IV (severe) 585.4 ; Hyperpotassemia 276.7 ; Secondary hyperparathyroidism, renal 588.81 ; Proteinuria 791.0 ; Unspecified vitamin D deficiency 268.9 ; Anemia in chronic kidney disease 285.21 ; Other and unspecified hyperlipidemia 272.4 ; Hypertension, essential, benign 401.1 and Chronic kidney disease (CKD), stage III (moderate) 585.3 [place] [address] [address] Dec, [place] [address] [address] Dec, Depressive disorder, not els ewhere classified 311 and Generalized anxiety disorder 300.02 [place] [address] [address] Dec, [place] [address] [address] Dec, [place] [address] [address] Nov, Depressive disorder, not els ewhere classified 311 and Generalized anxiety disorder 300.02 [place] [address] [address] Nov, Arthritis of both knees 716. [address] [address] 07 Nov, 2014 PAF (paroxysmal atrial fibri llation) 427.31 ; CAD (coronary artery disease) 414.00 ; Chest pain 786.50 and Chronic kidney disease (CKD) stage G4/A1, severely decreased glomerular filtration rate (GFR) between 15-29 mL/min/1.73 square meter and albuminuria creatinine ratio less than 30 mg/g 585.4 [facility] [address] [place] [id number] [address] [place] [address] Oct, Coronary atherosclerosis of unspecified type of vessel, hoopa or graft 414.00 ; Chronic kidney disease, Stage IV (severe) 585.4 ; Hypertension 401.9 and Edema 782.3 [facility] [address] [place] [id number] [place] [address] Oct, Depressive disorder, not els ewhere classified 311 and Generalized anxiety disorder 300.02 [facility] [address] [address] Oct, Depressive disorder, not els ewhere classified 311 and Generalized anxiety disorder 300.02 [place] [address] [address] Oct, [place] [address] [address] Oct, [facility] [address] [address] Sep, [place] [address] [address] Sep, Chronic kidney disease, Stag e IV (severe) 585.4 [place] [address] [address] Sep, [facility] [address] [address] Sep, Coronary atherosclerosis of unspecified type of vessel, hoopa or graft 414.00 ; Hypertension 401.9 ; Edema 782.3 and Hypothyroidism 244.[address] [address] Sep, Coronary atherosclerosis of unspecified type of vessel, hoopa or graft 414.00 ; Hypertension 401.9 ; Fibromyalgia 729.1 ; Edema 782.3 ; Hypothyroidism 244.9 and Anemia 285.[address] [place] [address] 04 Sep, 2014 Anxiety disorder, unspecifie d 300.00 and Depressive disorder, not elsewhere classified 311 [facility] [address] [id number] [address] [place] [address] Sep, [facility] [address] [facility] [id number] [address] [place] [address] August, Generalized anxiety disorder 300.02 [facility] [address] [id number] [address] [place] [address] August, Closed fracture of lateral m alleolus 824.2 [facility] [address] [id number] [address] [place] [address] Jul, [facility] [address] [facility] [id number] [address] [place] [address] Jul, [facility] [address] [facility] [id number] [address] [place] [address] Jun, [facility] [address] [id number] [address] [place] [address] Jun, [facility] [address] [facility] [id number] [address] [place] [address] Jun, [facility] [address] [facility] [id number] [address] [place] [address] Jun, [facility] [address] [facility] [id number] [address] [place] [address] Jun, [facility] [address] [facility] [id number] [address] [place] [address] Jun, [facility] [address] [facility] [id number] [address] [place] [address] May, [facility] [address] [id number] [address] [place] [address] May, [facility] [address] [facility] [id number] [address] [place] [address] May, [facility] [address] [id number] [address] [place] [address], [place] [address] 18 May, 2014 [facility] [address] [id number] [address] [place] [address], [place] [address] 16 May, 2014 [facility] [address] [id number] [address] [place] [address], [place] [address] 16 May, 2014 [facility] [address] [id number] [address] [place] [address], [place] [address] 13 May, 2014 [facility] [address] [id number] [address] [place] [address], [place] [address] 13 May, 2014 [facility] [address] [id number] [address] [place] [address], [place] [address] 10 May, 2014 [facility] [address] [id number] [address] [place] [address], [place] [address] 10 May, 2014 [facility] [address] [id number] [address] [place] [address], [place] [address] Apr, [facility] [address] [id number] [address] [place] [address], [place] [address] Apr, [facility] [address] [id number] [address] [place] [address], [place] [address] Mar, [facility] [address] [id number] [address] [place] [address], [place] [address] Mar, [facility] [address] [id number] [address] [place] [address], [place] [address] Mar, [facility] [address] [id number] [address] [place] [address], [place] [address] Mar, [facility] [address] [id number] [address] [place] [address], [place] [address] Mar, [facility] [address] [id number] [address] [place] [address], [place] [address] Mar, [facility] [address] [id number] [address] [place] [address], [place] [address] Mar, [facility] [address] [id number] [address] [place] [address], [place] [address] Feb, [facility] [address] [id number] [address] [place] [address], [place] [address] Feb, [facility] [address] [id number] [address] [place] [address], [place] [id number] Feb, [facility] [address] [id number] [address] [place] [address], [place] [address] Jan, [facility] [address] [id number] [address] [place] [address], [place] [address] Jan, [facility] [address] [id number] [address] [place] [address], [place] [address] Jan, [facility] [address] [id number] [address] [place] [address], [place] [address] Jan, [facility] [address] [id number] [address] [place] [address], [place] [address] Jan, [facility] [address] [id number] [address] [place] [address], [place] [address] Jan, [facility] [address] [id number] [address] [place] [address], [place] [address] Jan, [facility] [address] [id number] [address] [place] [address], [place] [address] Jan, [facility] [address] [id number] [address] [place] [address], [place] [address] Jan, [facility] [address] [address] [id number] [address] [place] [address], [place] [address] Jan, [facility] [address] [id number] [address] [place] [address], [place] [address] Nov, [facility] [address] [id number] [address] [place] [address], [place] [address] Nov, [facility] [address] [id number] [address] [place] [address], [place] [address] Nov, [facility] [address] [id number] [address] [place] [address], [place] [address] Oct, [facility] [address] [id number] [address] [place] [address], [place] [address] Oct, [facility] [address] [id number] [address] [place] [address], [place] [address] Oct, [facility] [address] [id number] [address] [place] [address], [place] [address] Oct, [facility] [address] [id number] [address] [place] [address], [place] [address] Oct, [facility] [address] [id number] [address] [place] [address], [place] [address] Oct, [facility] [address] [id number] [address] [place] [address], [place] [address] Oct, [facility] [address] [id number] [address] [place] [address], [place] [address] Oct, [facility] [address] [id number] [address] [place] [address], [place] [address] Oct, [facility] [address] [id number] [address] [place] [address], [place] [address] Sep, [facility] [address] [id number] [address] [place] [address], [place] [address] Sep, [facility] [address] [id number] [address] [place] [address], [place] [address] Sep, [facility] [address] [id number] [address] [place] [address], [place] [address] Sep, [facility] [address] [id number] [address] [place] [address], [place] [address] Sep, [facility] [address] [id number] [address] [place] [address], [place] [address] Sep, [facility] [address] [id number] [address] [place] [address], [place] [address] Sep, [facility] [address] [id number] [address] [place] [address], [place] [address] Sep, [facility] [address] [id number] [address] [place] [address], [place] [address] Sep, [facility] [address] [id number] [address] [place] [address], [place] [address] August, [facility] [address] [id number] [address] [place] [address], [place] [address] August, [facility] [address] [id number] [address] [place] [address], [place] [address] August, [facility] [address] [id number] [address] [place] [address], [place] [address] August, [facility] [address] [id number] [address] [place] [address], [place] [address] August, [facility] [address] [id number] [address] [place] [address], [place] [address] August, [facility] [address] [id number] [address] [place] [address], [place] [address] Jul, [facility] [address] [id number] [address] [place] [address], [place] [address] Jul, [facility] [address] [id number] [address] [place] [address], [place] [address] Jul, [facility] [address] [id number] [address] [place] [address], [place] [address] Jul, [facility] [address] [id number] [address] [place] [address], [place] [address] Jul, [facility] [address] [id number] [address] [place] [address], [place] [address] Jul, [facility] [address] [id number] [address] [place] [address], [place] [address] 10 Jun, 2013 [facility] [address] [id number] [address] [place] [address], [place] [address] Jun, [facility] [address] [id number] [address] [place] [address], [place] [address] May, [facility] [address] [id number] [address] [place] [address], [place] [address] May, [facility] [address] [id number] [address] [place] [address], [place] [address] May, [facility] [address] [id number] [address] [place] [address], [place] [address] May, [facility] [address] [id number] [address] [place] [address], [place] [address] Apr, [facility] [address] [id number] [address] [place] [address], [place] [address] Apr, [facility] [address] [id number] [address] [place] [address], [place] [address] Mar, [facility] [address] [id number] [address] [place] [address], [place] [address] Mar, [facility] [address] [id number] [address] [place] [address], [place] [address] 17 Mar, 2013 [facility] [address] [id number] [address] [place] [address], [place] [address] Mar, [facility] [address] [id number] [address] [place] [address], [place] [address] Mar, [facility] [address] [id number] [address] [place] [address], [place] [address] Mar, [facility] [address] [id number] [address] [place] [address], [place] [address] Feb, [facility] [address] [id number] [address] [place] [address], [place] [address] Feb, [facility] [address] [id number] [address] [place] [address], [place] [address] Feb, [facility] [address] [id number] [address] [place] [address], [place] [address] Feb, [facility] [address] [id number] [address] [place] [address], [place] [address] Feb, [facility] [address] [id number] [address] [place] [address] Feb, [facility] [address] [id number] [address] [place] [address], [place] [address] Jan, [facility] [address] [id number] [address] [place] [address], [place] [address] Jan, [facility] [address] [id number] [address] [place] [address], [place] [address] Jan, [facility] [address] [id number] [address] [place] [address], [place] [address] Jan, [facility] [address] [id number] [address] [place] [address], [place] [address] Jan, [facility] [address] [id number] [address] [place] [address], [place] [address] Jan, [facility] [address] [id number] [address] [place] [address], [place] [address] Dec, [facility] [address] [id number] [address] [place] [address] Dec, [facility] [address] [id number] [address] [place] [address], [place] [address] Nov, [facility] [address] [id number] [address] [place] [address], [place] [address] Nov, [facility] [address] [id number] [address] [place] [address], [place] [address] Oct, [facility] [address] [id number] [address] [place] [address], [place] [address] Oct, [facility] [address] [id number] [address] [place] [address], [place] [address] Oct, [facility] [address] [id number] [address] [place] [address], [place] [address] Oct, [facility] [address] [id number] [address] [place] [address], [place] [address] Oct, [facility] [address] [id number] [address] [place] [address], [place] [address] Oct, [facility] [address] [id number] [address] [place] [address], [place] [address] Sep, [facility] [address] [id number] [address] [place] [address], [place] [address] Sep, [facility] [address] [id number] [address] [place] [address], [place] [address] Sep, [facility] [address] [id number] [address] [place] [address], [place] [address] Sep, [facility] [address] [id number] [address] [place] [address], [place] [address] August, [facility] [address] [id number] [address] [place] [address], [place] [address] August, [facility] [address] [id number] [address] [place] [address], [place] [address] August, [facility] [address] [id number] [address] [place] [address], [place] [address] August, [facility] [address] [id number] [address] [place] [address], [place] [address] August, [facility] [address] [id number] [address] [place] [address], [place] [address] Jul, [facility] [address] [id number] [address] [place] [address], [place] [address] Jul, [facility] [address] [id number] [address] [place] [address], [place] [address] Jul, [facility] [address] [id number] [address] [place] [address], [place] [address] Jul, [facility] [address] [id number] [address] [place] [address], [place] [address] Jul, [facility] [address] [id number] [address] [place] [address], [place] [address] Jul, [facility] [address] [id number] [address] [place] [address], [place] [address] Jul, [facility] [address] [id number] [address] [place] [address], [place] [address] Jul, [facility] [address] [id number] [address] [place] [address], [place] [address] Jul, [facility] [address] [id number] [address] [place] [address], [place] [address] Jul, [facility] [address] [id number] [id number] Jun, [facility] [address] [id number] [address] [place] [address], [place] [address] Jun, [facility] [address] [id number] [address] [place] [address], [place] [address] Jun, [facility] [address] [id number] [address] [place] [address], [place] [address] Jun, [facility] [address] [id number] [address] [place] [address], [place] [address] Jun, [facility] [address] [id number] [address] [place] [address], [place] [address] May, [facility] [address] [id number] [address] [place] [address], [place] [address] May, [facility] [address] [id number] [address] [place] [address] May, [facility] [address] [id number] [address] [place] [address], [place] [address] Apr, [facility] [address] [id number] [address] [place] [address], [place] [address] Apr, [facility] [address] [id number] [address] [place] [address], [place] [address] Apr, [facility] [address] [id number] [address] [place] [address], [place] [address] Apr, [facility] [address] [id number] [address] [place] [address], [place] [address] Apr, [facility] [address] [id number] [address] [place] [address], [place] [address] Apr, [facility] [address] [id number] [address] [place] [address], [place] [address] Mar, [facility] [address] [id number] [address] [place] [address], [place] [address] Mar, [facility] [address] [id number] [address] [place] [address], [place] [address] Mar, [facility] [address] [id number] [address] [place] [address], [place] [address] Mar, [facility] [address] [id number] [address] [place] [address], [place] [address] Feb, [facility] [address] [id number] [address] [place] [address], [place] [address] Feb, [facility] [address] [id number] [address] [place] [address], [place] [address] Feb, [facility] [address] [id number] [address] [place] [address], [place] [address] Feb, [facility] [address] [id number] [address] [place] [address], [place] [address] Feb, [facility] [address] [id number] [address] [place] [address], [place] [address] Feb, [facility] [address] [id number] [address] [place] [address], [place] [address] Feb, [facility] [address] [id number] [address] [place] [address], [place] [address] Feb, [facility] [address] [id number] [address] [place] [address], [place] [address] Feb, [facility] [address] [id number] [address] [place] [address], [place] [address] Feb, [facility] [address] [id number] [address] [place] [address], [place] [address] Feb, [facility] [address] [id number] [address] [place] [address], [place] [address] Feb, [facility] [address] [id number] [address] [place] [address], [place] [address] Feb, [facility] [address] [id number] [address] [place] [address], [place] [address] Feb, [facility] [address] [id number] [address] [place] [address], [place] [address] Feb, [facility] [address] [id number] [address] [place] [address], [place] [address] Feb, [facility] [address] [id number] [address] [place] [address], [place] [address] Jan, [facility] [address] [id number] [address] [place] [address], [place] [address] Jan, [facility] [address] [id number] [address] [place] [address], [place] [address] Jan, [facility] [address] [id number] [address] [place] [address], [place] [address] Jan, [facility] [address] [id number] [address] [place] [address], [place] [address] Jan, [facility] [address] [id number] [address] [place] [address], [place] [address] Jan, [facility] [address] [id number] [address] [place] [address], [place] [address] Jan, [facility] [address] [id number] [address] [place] [address], [place] [address] 16 Jan, 2012 [facility] [address] [id number] [address] [place] [address], [place] [address] 16 Jan, 2012 [facility] [address] [id number] [address] [place] [address], [place] [address] 15 Jan, 2012 [facility] [address] [id number] [address] [place] [address], [place] [address] 15 Jan, 2012 [facility] [address] [id number] [address] [place] [address], [place] [address] Jan, [facility] [address] [id number] [address] [place] [address], [place] [address] 26 Sep2011 [facility] [address] [id number] [address] [place] [address], [place] [address] 26 Sep2011 [facility] [address] [id number] [address] [place] [address] [address] 24 Sep2011 [facility] [address] [id number] [address] [place] [address], [place] [address] 23 Sep, 2011 [facility] [address] [id number] [address] [place] [address] 22 Sep, 2011 [facility] [address] [id number] [address] [place] [address], [place] [address] 21 Sep2011 [facility] [address] [id number] [address] [place] [address], [place] [address] 20 Sep, 2011 [facility] [address] [id number] [address] [place] [address], [place] [address] 20 Dec, 2011 [facility] [address] [id number] [address] [place] [address], [place] [address] 07 Dec, 2011 [facility] [address] [id number] [address] [place] [address], [place] [address] 06 Sep, 2011 [facility] [address] [id number] [address] [place] [address], [place] [address] 06 Dec, 2011 [facility] [address] [id number] [address] [place] [address], [place] [address] 05 Dec, 2011 [facility] [address] [id number] [address] [place] [address], [place] [address] 23 Nov, 2011 [facility] [address] [id number] [address] [place] [address], [place] [address] 17 Nov, 2011 [facility] [address] [id number] [address] [place] [address], [place] [address] Nov, [facility] [address] [id number] [address] [place] [address], [place] [address] Nov, [facility] [address] [id number] [address] [place] [address], [place] [address] Nov, [facility] [address] [id number] [address] [place] [address], [place] [address] Nov, [facility] [address] [id number] [address] [place] [address], [place] [address] Nov, [facility] [address] [id number] [address] [place] [address], [place] [address] Nov, [facility] [address] [id number] [address] [place] [address], [place] [address] Oct, [facility] [address] [id number] [address] [place] [address], [place] [address] Oct, [facility] [address] [id number] [address] [place] [address], [place] [address] Oct, [facility] [address] [id number] [address] [place] [address], [place] [address] Oct, [facility] [address] [id number] [address] [place] [address], [place] [address] Oct, [facility] [address] [id number] [address] [place] [address], [place] [address] Oct, [facility] [address] [id number] [address] [place] [address], [place] [address] Oct, [facility] [address] [id number] [address] [place] [address], [place] [address] Sep, [facility] [address] [id number] [address] [place] [address], [place] [address] Sep, [facility] [address] [id number] [address] [place] [address], [place] [address] August, [facility] [address] [id number] [address] [place] [address], [place] [address] August, [facility] [address] [id number] [address] [place] [address], [place] [address] August, [facility] [address] [id number] [address] [place] [address], [place] [address] August, [facility] [address] [id number] [address] [place] [address], [place] [address] Jul, [facility] [address] [id number] [address] [place] [address], [place] [address] Jul, [facility] [address] [id number] [address] [place] [address], [place] [address] Jul, [facility] [address] [id number] [address] [place] [address], [place] [address] Jul, [facility] [address] [id number] [address] [place] [address], [place] [address] Jul, [facility] [address] [id number] [address] [place] [address], [place] [address] Jul, [facility] [address] [id number] [address] [place] [address], [place] [address] Jul, [facility] [address] [id number] [address] [place] [address], [place] [address] Jul, [facility] [address] [id number] [address] [place] [address], [place] [address] Jul, [facility] [address] [id number] [address] [place] [address], [place] [address] 23 Jun, 2011 [facility] [address] [id number] [address] [place] [address], [place] [address] 19 Jun, 2011 [facility] [address] [id number] [address] [place] [address], [place] [address] 15 Jun, 2011 [facility] [address] [id number] [address] [place] [address], [place] [address] 14 Jun, 2011 [facility] [address] [id number] [address] [place] [address], [place] [address] Jun, [facility] [address] [id number] [address] [place] [address], [place] [address] Jun, [facility] [address] [id number] [address] [place] [address], [place] [address] Jun, [facility] [address] [id number] [address] [place] [address], [place] [address] 25 May, 2011 [facility] [address] [id number] [address] [place] [address], [place] [address] 24 May, 2011 [facility] [address] [id number] [address] [place] [address], [place] [address] 16 May, 2011 [facility] [address] [id number] [address] [place] [address], [place] [address] May, [facility] [address] [id number] [address] [place] [address], [place] [address] May, [facility] [address] [id number] [address] [place] [address], [place] [address] Apr, [facility] [address] [id number] [address] [place] [address], [place] [address] 19 Apr, 2011 [facility] [address] [id number] [address] [place] [address], [place] [address] 13 Apr, 2011 [facility] [address] [id number] [address] [place] [address], [place] [address] Apr, [facility] [address] [id number] [address] [place] [address], [place] [address] 05 Apr, 2011 [facility] [address] [id number] [address] [place] [address], [place] [address] Mar, [facility] [address] [id number] [address] [place] [address], [place] [address] Mar, [facility] [address] [id number] [address] [place] [address], [place] [address] Mar, [facility] [address] [id number] [address] [place] [address], [place] [address] Mar, [facility] [address] [id number] [address] [place] [address], [place] [address] Mar, [facility] [address] [id number] [address] [place] [address], [place] [address] Mar, [facility] [address] [id number] [address] [place] [address], [place] [address] Mar, [facility] [address] [id number] [address] [place] [address], [place] [address] Feb, [facility] [address] [id number] [address] [place] [address], [place] [address] Feb, [facility] [address] [id number] [address] [place] [address], [place] [address] Feb, [facility] [address] [id number] [address] [place] [address], [place] [address] Feb, [facility] [address] [id number] [address] [place] [address], [place] [address] Jan, [facility] [address] [id number] [address] [place] [id number] Jan, [facility] [address] [id number] [address] [place] [address] Jan, [facility] [address] [id number] [address] [place] [id number] Jan, [facility] [address] [id number] [address] [place] [address] Nov, [facility] [address] [id number] [address] [place] [address] Mar, [facility] [address] [id number] [address] [place] [address] Mar, [facility] [address] [id number] [address] [place] [address] Mar, [facility] [address] [id number] [address] [place] [address] Mar, [facility] [address] [id number] [address] [place] [address] Mar, [facility] [address] [address] [id number] [address] [place] [id number] Mar, [facility] [address] [id number] [address] [place] [id number] Feb, [facility] [address] [id number] [address] [place] [id number] Feb, [facility] [address] [id number] [address] [place] [phone] Jan, [facility] [address] [id number] [address] [place] [phone] Jan, [facility] [address] [id number] [address] [place] [phone] Jan, IMMUNIZATIONS No Known Immunizations SOCIAL HISTORY [...] History CPAP Noncompliance_ Dr. Madden advises a FID3 driving. Medical History Bacterial meningitis 12/2016 Medical [...] 09-2015 & 2007 Surgical History Bladder surgery [facility] 03/2016 Surgical History Neurotransmitter placed 10/2017 Surgical History retninal repair 12/31/2017 Surgical History cataract surgery 2018 Surgical History cataract surgery 2019 Surgical History SCS trial x7 days 2019 Hospitalization History Surgeries Only Hospitalization History bacterial meningitis December 2016 Hospitalization History [facility] psych for SI 1988 Hospitalization History [facility]-Altered mental status 05/2017 Hospitalization History sepsis, UTI, headache 08/03/2018-
--- OUTSIDE RECORDS SUMMARY | 2019-08-01 10:36 | XMS REPORT ---
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 Name Role Phone Migration, Doctor Unavailable Unavailable PROBLEMS Type Condition ICD9-CM Code [id number] Code Onset Dates Condition S tatus SNOMED Code Problem Restless leg G25.81 Active 1892717 8 Problem Insomnia G47.00 Active 574008258 Problem Hypothyroid E03.9 Active 11587369 Problem Palpitations R00.2 Active 6659417 2 Problem Asthma J45.909 Active 260395308 Problem Chronic kidney disease, stage 4 (severe) N18.4 Active 154767385 Problem Depressed F32.9 Active 44733557 Problem Primary osteoarthritis of left knee M17.12 Active 290217687 Problem Generalized anxiety disorder F41.1 A ctive 61357142 Problem Anemia in chronic kidney disease D63.1 Active 207659473230795 Problem Low back pain M54.5 Active 670771 009 Problem Coronary artery disease invo lving ak chin coronary artery of ak chin heart, angina presence unspecified I25.10 Active 5214305855619 Problem Dysthymic disorder F34.1 Active 7 8777739 Problem Other seasonal allergic rhinitis J30.2 Active 765071283 Problem History of anemia Z86.2 Active 27 2959788 Problem Fibromyalgia M79.7 Active 1103460 05 Problem Hypokalemia E87.6 Active 75584205 Problem Vitamin D deficiency E55.9 Active 15305726 Problem Mixed stress and urge urinary incontinence N39.46 Active 612199752 Problem Chronic kidney disease, unspecified N18.9 Active 696461520 Problem Abnormal chest CT R93.8 Active 44 5198013 Problem Essential (primary) hypertension I10 Active 08985669 Problem Long-term use of high-risk medication Z79.899 Active 320213852 Problem Degenerative tear of medial meniscus of left knee M23.204 Active 010385976 Problem Mood disorder F39 Active 438450 05 Problem Stage 3 chronic kidney disease N18.3 Active 654105270 Problem Perimenopausal vasomotor symptoms N95.1 Active 187805291 Problem History of colon polyps Z86.010 Active 625545156 Problem Other chronic pain G89.29 Active 8 5644081 Problem Functional diarrhea K59.1 Active 09852840 Problem Asthma with acute exacerbation in adult J45.901 Active 177308263 Problem Body mass index (BMI) of 40.0-44.9 in adult Z68.41 Active 799124122 Problem Seasonal allergic rhinitis due to pollen J30.1 Active 02794002 Problem Restless leg syndrome G25.81 Active 32794222 Problem Chronic pain syndrome G89.4 Active 422703107 ALLERGIES No Information ENCOUNTERS Encounter Location Date Diagnosis [facility] [address] [facility] [id number] [address] [place] [phone] Dec, [facility] [address] [facility] [id number] [address] [place] [address] Nov, [facility] [address] [facility] [id number] [address] [place] [address] Oct, [facility] [address] [facility] [id number] [address] [place] [address] Oct, Cellulitis of left lower ext remity L03.116 and Morbid obesity E66.01 [facility] [address] [facility] [id number] [address] [place] [address] Oct, [facility] [address] [facility] [id number] [address] [place] [address] Oct, [facility] [address] [facility] [id number] [address] [place] [address] Oct, Generalized anxiety disorder F41.1 and Major depressive disorder, recurrent episode with anxious distress F33.9 [facility] [address] [facility] [id number] [address] [place] [address] Oct, [facility] [address] [facility] [id number] [address] [place] [address] Oct, Chronic pain syndrome G89.4 [facility] [address] [facility] [id number] [address] [place] [address] Oct, Chronic pain syndrome G89.4 [facility] [address] [facility] [id number] [address] [place] [address] Oct, UTI symptoms R39.9 ; Acute c ystitis without hematuria N30.00 and Morbid obesity E66.01 [facility] [address] [facility] [id number] [address] [place] [address] Oct, [facility] [address] [facility] [id number] [address] [place] [address] Oct, Chronic pain syndrome G89.4 [facility] [address] [facility] [id number] [address] [place] [address] Sep, [facility] [address] [facility] [id number] [address] [place] [address] Sep, Generalized anxiety disorder F41.1 and Major depressive disorder, recurrent episode with anxious distress F33.9 [facility] [address] [facility] [id number] [address] [place] [address] Sep, Chronic kidney disease, stag e 4 (severe) N18.4 [facility] [address] [facility] [id number] [address] [place] [address] Sep, Fibromyalgia M79.7 and Chron ic pain syndrome G89.4 [facility] [address] [facility] [id number] [address] [place] [address] Sep, [address] [address] Sep, Chronic pain syndrome G89.4 [facility] [address] [facility] [id number] [address] [place] [address] Sep, [facility] [address] [facility] [id number] [address] [place] [address] Sep, Chronic pain syndrome G89.4 ; Fibromyalgia M79.7 and Morbid obesity E66.01 [facility] [address] [facility] [id number] [address] [place] [address] August, Generalized anxiety disorder F41.1 and Major depressive disorder, recurrent episode with anxious distress F33.9 [facility] [address] [id number] [address] [place] [address] August, Fibromyalgia M79.7 [facility] [address] [id number] [address] [place] [address] August, Restless leg syndrome G25.81 ; Vitamin D deficiency E55.9 ; Urinary tract infection without hematuria, site unspecified N39.0 ; Pain in right shoulder M25.511 ; Other chronic pain G89.29 ; Biceps tendinitis on right M75.21 and Morbid obesity E66.01 [facility] [address] [id number] [address] [place] [address] Jul, Urinary tract infection with out hematuria, site unspecified N39.0 and Morbid obesity E66.01 [facility] [address] [id number] [address] [place] [address] Jul, [facility] [address] [id number] [address] [place] [address] Jul, [facility] [address] [id number] [address] [place] [address] Jul, Fibromyalgia M79.7 [facility] [address] [id number] [address] [place] [address] Jul, Acute pain of right shoulder M25.511 [facility] [address] [id number] [address] [place] [address] Jul, Acute pain of right shoulder M25.511 and Morbid obesity E66.01 [facility] [address] [id number] [address] [place] [address] Jun, [facility] [address] [id number] [address] [place] [address] 14 Jun, 2018 Generalized anxiety disorder F41.1 and Major depressive disorder, recurrent episode with anxious distress F33.9 [facility] [address] [id number] [address] [place] [address] 11 Jun, 2018 [facility] [id number] [place] [address] 06 Jun, 2018 Fibromyalgia M79.7 [facility] [address] [place] [id number] [address] [place] [address] 04 Jun, 2018 Acute pain of right shoulder M25.511 ; Acute pain of right hip M25.551 and Morbid obesity E66.01 [place] [address] [place] [id number] [address] [place] [address] 11 May, 2018 Burning with urination R30.0 ; Vaginal discharge N89.8 ; Chronic kidney disease, stage 4 (severe) N18.4 ; Body mass index (BMI) of 40.0-44.9 in adult Z68.41 and Morbid obesity E66.01 [place] [address] [address] 07 May, 2018 Fibromyalgia M79.7 [place] [address] [address] 06 May, 2018 Generalized anxiety disorder F41.1 and Major depressive disorder, recurrent episode with anxious distress F33.9 [place] [address] [place] [address] 24 Apr, 2018 [place] [address] [place] [id number] [address] [place] [address] Apr, Fibromyalgia M79.7 [facility] [address] [place] [id number] [address] [place] [address] 14 Mar, 2018 Acute UTI N39.0 and Dysuria R30.0 [place] [address] [address] 10 Mar, 2018 Fibromyalgia M79.7 [facility] [address] [place] [id number] [address] [place] [address] 15 Feb, 2018 [place] [address] [place] [id number] [address] [place] [address] 14 Feb, 2018 [facility] [address] [facility] [id number] [address] [place] [address] Feb, [facility] [address] [facility] [id number] [address] [place] [address] Feb, Fibromyalgia M79.7 [facility] [address] [facility] [id number] [address] [place] [address] 08 Feb, 2018 Complicated UTI (urinary tra ct infection) N39.0 [facility] [address] [id number] [address] [place] [address] Feb, [facility] [address] [facility] [id number] [address] [place] [address] Jan, Generalized anxiety disorder F41.1 and Major depressive disorder, recurrent episode with anxious distress F33.9 [facility] [address] [facility] [id number] [address] [place] [address] Jan, Acute conjunctivitis of left eye, unspecified acute conjunctivitis type H10.32 [facility] [address] [facility] [id number] [address] [place] [address] Jan, [facility] [address] [facility] [id number] [address] [place] [address] Jan, Acute non-recurrent maxillar y sinusitis J01.00 ; Dysuria R30.0 ; Perimenopausal vasomotor symptoms N95.1 and Fibromyalgia M79.7 [facility] [address] [facility] [id number] [address] [place] [id number] 28 Dec, 2017 Vitamin D deficiency E55.9 [facility] [address] [facility] [id number] [address] [place] [address] 27 Dec, 2017 Vitamin D deficiency E55.9 [facility] [address] [facility] [id number] [address] [place] [address] 24 Dec, 2017 Vitamin D deficiency E55.9 [facility] [address] [facility] [id number] [address] [place] [address] Dec, [facility] [address] [id number] [address] [place] [address] Dec, Fibromyalgia M79.7 [facility] [address] [id number] [address] [place] [address] Nov, [facility] [address] [id number] [address] [place] [address] Nov, [facility] [address] [id number] [address] [place] [address] Nov, [facility] [address] [id number] [address] [place] [address] Nov, Fibromyalgia M79.7 ; Vision changes H53.9 ; Chest wall pain R07.89 and Chronic pain syndrome G89.4 [facility] [address] [id number] [address] [place] [address] Nov, [facility] [address] [id number] [address] [place] [address] Nov, Rash of hands R21 [facility] [address] [id number] [address] [place] [address] Nov, Generalized anxiety disorder F41.1 and Major depressive disorder, recurrent episode with anxious distress F33.9 [facility] [address] [id number] [address] [place] [address] Nov, Fibromyalgia M79.7 [facility] [address] [id number] [address] [place] [address] Nov, Complicated UTI (urinary tra ct infection) N39.0 [facility] [address] [id number] [address] [place] [address] Oct, [facility] [address] [id number] [address] [place] [address] Oct, Generalized anxiety disorder F41.1 and Major depressive disorder, recurrent episode with anxious distress F33.9 [facility] [address] [id number] [address] [place] [address] Oct, [facility] [address] [facility] [id number] [address] [place] [address] Oct, Fibromyalgia M79.7 [facility] [address] [facility] [id number] [address] [place] [address] Sep, Restless leg syndrome G25.81 and Restless leg G25.81 [facility] [address] [facility] [id number] [address] [place] [address] Sep, [facility] [address] [facility] [id number] [address] [place] [address] Sep, Seasonal allergic rhinitis d ue to pollen J30.1 ; Screening for breast cancer Z12.31 ; Chest pain at rest R07.9 ; Restless leg syndrome G25.81 ; Essential (primary) hypertension I10 and Depressed F32.9 [facility] [address] [facility] [id number] [address] [place] [address] August, Fibromyalgia M79.7 [facility] [address] [facility] [id number] [address] [place] [address] August, [facility] [address] [place] [id number] [address] [place] [address] August, [facility] [address] [place] [id number] [address] [place] [address] August, Abnormal chest [address] R93.8 [facility] [address] [facility] [id number] [address] [place] [address] August, Generalized anxiety disorder F41.1 and Major depressive disorder, recurrent episode with anxious distress F33.9 [facility] [address] [facility] [id number] [address] [place] [address] August, Abnormal chest CT R93.8 [facility] [address] [facility] [id number] [address] [place] [address] Jul, [facility] [address] [place] [id number] [address] [place] [address] Jul, Chronic kidney disease, stag e 4 (severe) N18.4 [facility] [address] [address] Jul, [facility] [address] [place] [id number] [place] [address] Jul, Restless leg G25.81 ; Mixed stress and urge urinary incontinence N39.46 and Fibromyalgia M79.7 [facility] [address] [place] [id number] [place] [address] Jul, Chronic kidney disease, stag e 4 (severe) N18.4 [facility] [address] [address] Jun, Orthostatic hypotension I95. 1 ; Chronic kidney disease, stage 4 (severe) N18.4 ; Chest wall discomfort R07.89 and Body mass index (BMI) of 40.0- 44.9 in adult Z68.41 [place] [address] [address] Jun, [facility] [address] [address] Jun, Orthostatic hypotension I95. 1 [facility] [address] [address] Jun, [facility] [address] [place] [id number] [place] [address] Jun, Orthostatic hypotension I95. 1 ; Dysuria R30.0 and Acute cystitis without hematuria N30.00 [facility] [address] [address] Jun, [facility] [address] [place] [id number] [place] [address] Jun, Chronic kidney disease, stag e 4 (severe) N18.4 [facility] [address] [place] [id number] [address] [place] [address] Jun, Fibromyalgia M79.7 [facility] [address] [facility] [id number] [address] [place] [address] Jun, [facility] [address] [facility] [id number] [address] [place] [address] Jun, [facility] [address] [facility] [id number] [address] [place] [address] May, Abnormal chest CT R93.8 and Stage 3 chronic kidney disease N18.3 [facility] [address] [facility] [id number] [address] [place] [address] May, Chronic kidney disease, stag e 4 (severe) N18.4 [facility] [address] [facility] [id number] [address] [place] [address] May, Chronic kidney disease, stag e 4 (severe) N18.4 [facility] [address] [facility] [id number] [address] [place] [address] May, Abnormal chest [address] R93.8 [facility] [address] [facility] [id number] [address] [place] [address] May, [facility] [address] [facility] [id number] [address] [place] [address] May, [facility] [address] [facility] [id number] [address] [place] [address] May, Generalized anxiety disorder F41.1 and Major depressive disorder, recurrent episode with anxious distress F33.9 [facility] [address] [facility] [id number] [address] [place] [address] May, Mood disorder F39 [facility] [address] [facility] [id number] [address] [place] [address] Apr, [facility] [address] [facility] [id number] [address] [place] [address] Apr, Infected skin lesion L08.9 a nd Muscle strain of right shoulder region, initial encounter S46.911A [facility] [address] [id number] [address] [place] [address] Apr, Generalized anxiety disorder F41.1 and Major depressive disorder, recurrent episode with anxious distress F33.9 [facility] [address] [id number] [address] [place] [address] Apr, [facility] [address] [id number] [address] [place] [address] Apr, Recent urinary tract infecti on Z87.440 and Hypothyroid E03.9 [facility] [address] [id number] [address] [place] [address] Apr, Generalized anxiety disorder F41.1 and Major depressive disorder, recurrent episode with anxious distress F33.9 [facility] [address] [id number] [address] [place] [address] Apr, Recent urinary tract infecti on Z87.440 [facility] [address] [id number] [address] [place] [address] Mar, [facility] [address] [id number] [address] [place] [address] Mar, Dysuria R30.0 ; Acute cystit is without hematuria N30.00 and BMI 40.0-44.9, adult Z68.41 [facility] [address] [id number] [address] [place] [address] Mar, [facility] [address] [id number] [address] [place] [address] Mar, [facility] [address] [id number] [address] [place] [address] Mar, Generalized anxiety disorder F41.1 and Major depressive disorder, recurrent episode with anxious distress F33.9 [facility] [address] [id number] [address] [place] [address] Feb, Conjunctivitis, bacterial H1 0.9 [facility] [address] [facility] [id number] [address] [place] [address] Feb, [facility] [address] [facility] [id number] [place] [address] Feb, Conjunctivitis, bacterial H1 0.9 [facility] [address] [place] [id number] [place] [address] Feb, [facility] [address] [place] [id number] [place] [address] Feb, Dysuria R30.0 ; Acute cystit is N30.00 and BMI 40.0-44.9, adult Z68.41 [place] [address] [address] Feb, [place] [address] [address] Feb, Generalized anxiety disorder F41.1 and Major depressive disorder, recurrent episode with anxious distress F33.9 [place] [address] [address] Feb, Mood disorder F39 and BMI 40 .0-44.9, adult Z68.41 [place] [address] [place] [id number] [place] [address] Jan, [place] [address] [address] Jan, [place] [address] [address] Jan, Hypothyroid E03.[address] [address] Jan, [place] [address] [place] [id number] [place] [address] Jan, Chronic kidney disease, unsp ecified N18.9 ; Hypokalemia E87.6 ; Essential (primary) hypertension I10 ; Fibromyalgia M79.7 ; Coronary artery disease involving ak chin coronary artery of ak chin heart, angina presence unspecified I25.10 ; Hypothyroid E03.9 and Encounter for immunization Z23 [facility] [address] [facility] [id number] [address] [place] [address] 04 Jan, 2017 Hypothyroid E03.9 [facility] [address] [facility] [id number] [address] [place] [address] Jan, [facility] [address] [facility] [id number] [address] [place] [address] 28 Dec, 2016 Vitamin D deficiency E55.9 [facility] [address] [facility] [id number] [address] [place] [address] 28 Dec, 2016 Primary osteoarthritis of le ft knee M17.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 [place] [address] [facility] [id number] [address] [place] [address] 19 Dec, 2016 Fibromyalgia M79.7 [facility] [address] [facility] [id number] [address] [place] [address] 18 Dec, 2016 Mood disorder F39 [place] [address] [facility] [id number] [address] [place] [phone] 13 Dec, 2016 [place] [address] [address] [facility] [id number] [address] [place] [id number] 13 Dec, 2016 Generalized anxiety disorder F41.1 and Major depressive disorder, recurrent episode with anxious distress F33.9 [facility] [address] [facility] [id number] [address] [place] [phone] 11 Dec, 2016 [facility] [address] [facility] [id number] [address] [place] [phone] 08 Dec, 2016 Streptococcal meningitis G00 .2 [facility] [address] [facility] [id number] [address] [place] [phone] 07 Dec, 2016 Streptococcal meningitis G00 .2 [place] [address] [address] [facility] [id number] [address] [place] [phone] Dec, [facility] [address] [facility] [id number] [address] [place] [id number] Dec, Streptococcal meningitis G00 .2 [facility] [address] [facility] [id number] [address] [place] [id number] Dec, [facility] [address] [facility] [facility] [id number] [address] [place] [address] Dec, Major depressive disorder, r ecurrent episode with anxious distress F33.9 [facility] [address] [facility] [id number] [address] [place] [address] Nov, Fever, unspecified fever cau se R50.9 [facility] [address] [facility] [id number] [address] [place] [address] Nov, [place] [address] [place] [id number] [address] [place] [address] Nov, Hypothyroid E03.9 [facility] [address] [place] [id number] [address] [place] [address] Nov, Generalized anxiety disorder F41.1 and Major depressive disorder, recurrent episode with anxious distress F33.9 [place] [address] [place] [id number] [address] [place] [address] Nov, [facility] [address] [place] [id number] [address] [place] [id number] Oct, Dental examination Z01.20 [facility] [address] [place] [id number] [address] [place] [address] Oct, Generalized anxiety disorder F41.1 and Major depressive disorder, recurrent episode with anxious distress F33.9 [facility] [address] [place] [id number] [address] [place] [address] Oct, Chronic kidney disease, stag e 4 (severe) N18.4 [facility] [address] [place] [id number] [address] [place] [address] Oct, [facility] [address] [place] [id number] [address] [place] [address] Oct, Fibromyalgia M79.7 [facility] [address] [facility] [id number] [address] [place] [address] Oct, [facility] [address] [facility] [id number] [address] [place] [address] Oct, Generalized anxiety disorder F41.1 ; Major depressive disorder, recurrent episode with anxious distress F33.9 and Bipolar disorder, current episode manic without psychotic features F31.10 [facility] [address] [facility] [id number] [address] [place] [address] Sep, [place] [address] [facility] [id number] [address] [place] [address] Sep, [place] [address] [place] [id number] [address] [place] [address] Sep, Vitamin D deficiency E55.9 [place] [address] [place] [id number] [address] [place] [address] Sep, Vitamin D deficiency E55.9 [place] [address] [place] [id number] [address] [place] [address] Sep, [place] [address] [facility] [id number] [address] [place] [address] Sep, Chronic kidney disease, stag e 4 (severe) N18.4 ; Hypothyroid E03.9 ; Restless leg G25.81 ; Fibromyalgia M79.7 ; Essential (primary) hypertension I10 ; Vitamin D deficiency E55.9 ; Dyspepsia R10.13 ; Anemia in chronic kidney disease D63.1 ; Chronic kidney disease, unspecified N18.9 ; Coronary artery disease involving ak chin coronary artery of ak chin heart, angina presence unspecified I25.10 ; Screening breast examination Z12.39 and Low back pain M54.5 [facility] [address] [place] [id number] [address] [place] [address] August, Generalized anxiety disorder F41.1 and Major depressive disorder, recurrent episode with anxious distress F33.9 [facility] [address] [facility] [id number] [address] [place] [address] August, Generalized anxiety disorder F41.1 and Major depressive disorder, recurrent episode with anxious distress F33.9 [facility] [address] [facility] [id number] [address] [place] [address] August, Fibromyalgia M79.7 [facility] [address] [place] [id number] [address] [place] [address] Jul, Generalized anxiety disorder F41.1 and Major depressive disorder, recurrent episode with anxious distress F33.9 [place] [address] [facility] [id number] [address] [place] [address] Jul, Fibromyalgia M79.7 [place] [id number] [facility] [id number] [address] [place] [address] Jul, Generalized anxiety disorder F41.1 [place] [address] [place] [id number] [address] [place] [address] May, [place] [address] [place] [id number] [address] [place] [address] May, Hypothyroid E03.9 [place] [address] [place] [id number] [address] [place] [address] May, Chronic kidney disease, stag e 4 (severe) N18.4 ; Hypothyroid E03.9 ; Restless leg G25.81 ; Fibromyalgia M79.7 ; Essential (primary) hypertension I10 ; Vitamin D deficiency E55.9 ; Dyspepsia R10.13 ; Acute non-recurrent maxillary sinusitis J01.00 ; Anemia in chronic kidney disease D63.1 ; Chronic kidney disease, unspecified N18.9 and Coronary artery disease involving ak chin coronary artery of ak chin heart, angina presence unspecified I25.10 [place] [address] [facility] [id number] [address] [place] [address] May, Vitamin D deficiency, unspec ified E55.9 [place] [address] [place] [id number] [address] [place] [address] May, Generalized anxiety disorder F41.1 and Major depressive disorder, recurrent episode with anxious distress F33.9 [facility] [address] [facility] [id number] [address] [place] [address] Apr, Pain in right knee M25.561 a nd Pain in left knee M25.562 [facility] [address] [facility] [id number] [address] [place] [address] Apr, [facility] [address] [facility] [id number] [address] [place] [address] Apr, [facility] [address] [facility] [id number] [address] [place] [address] Apr, [facility] [address] [facility] [id number] [address] [place] [address] Mar, Generalized anxiety disorder F41.1 and Major depressive disorder, recurrent episode with anxious distress F33.9 [facility] [address] [facility] [id number] [address] [place] [address] Mar, Generalized anxiety disorder F41.1 and Major depressive disorder, recurrent episode with anxious distress F33.9 [facility] [address] [facility] [id number] [address] [place] [address] Mar, [facility] [address] [facility] [id number] [address] [place] [address] Mar, [facility] [address] [facility] [id number] [address] [place] [address] Mar, [facility] [address] [facility] [id number] [address] [place] [address] Mar, Asthma J45.909 and Fibromyal elvira M79.7 [facility] [address] [facility] [id number] [address] [place] [address] Mar, Chronic kidney disease, stag e 4 (severe) N18.4 ; Vitamin D deficiency E55.9 and Essential (primary) hypertension I10 [facility] [address] [address] Feb, [facility] [address] [address] Feb, Dysuria R30.0 ; Mixed stress and urge urinary incontinence N39.46 ; Fibromyalgia M79.7 and Chronic kidney disease, stage IV (severe) N18.4 [place] [address] [address] Feb, Chronic kidney disease, stag e 4 (severe) N18.4 [place] [address] [address] Feb, Chronic kidney disease, stag e 4 (severe) N18.4 [place] [address] [address] Feb, [place] [address] [address] Feb, Vitamin D deficiency, unspec ified E55.9 [place] [address] [address] Jan, [facility] [address] [address] Jan, [place] [address] [address] Dec, [facility] [address] [address] Dec, Chronic kidney disease, stag e 4 (severe) N18.4 [facility] [address] [address] Dec, Dysthymic disorder F34.1 and Generalized anxiety disorder F41.1 [place] [address] [address] Dec, [facility] [address] [place] [id number] [address] [place] [address] Dec, [facility] [address] [address] Dec, Dysthymic disorder F34.1 and Generalized anxiety disorder F41.1 [facility] [address] [address] Dec, Dysuria R30.0 ; Chronic kidn ey disease, stage 4 (severe) N18.4 ; Hypertension I10 ; Dyspepsia R10.13 ; Yeast dermatitis B37.2 ; Palpitations R00.2 ; Hypothyroid E03.9 ; Functional diarrhea K59.1 and Other seasonal allergic rhinitis J30.2 [facility] [address] [place] [id number] [place] [address] Dec, [facility] [address] [address] Nov, Dysuria R30.0 and Stress inc ontinence N39.3 [facility] [id number] [place] [address] Nov, [place] [address] [address] Nov, [place] [address] [address] Nov, Osteoarthritis of knees, jose ateral M17.0 [facility] [address] [place] [id number] [address] [place] [address] Nov, Dysthymic disorder F34.1 and Generalized anxiety disorder F41.1 [place] [address] [address] Nov, [place] [address] [place] [id number] [address] [place] [address] Nov, [facility] [address] [address] Nov, Urgency of urination R39.15 [place] [address] [address] Nov, [place] [address] [address] Nov, Chronic kidney disease, stag e 4 (severe) N18.4 [place] [address] [address] Oct, Hypertension I10 ; Coronary artery disease involving ak chin coronary artery of ak chin heart, angina presence unspecified I25.10 ; Palpitations R00.2 ; Hypothyroid E03.9 ; Right foot pain M79.671 ; Functional diarrhea K59.1 and Other seasonal allergic rhinitis J30.2 [place] [address] [address] Oct, Dysthymic disorder F34.1 and Generalized anxiety disorder F41.1 [place] [address] [address] Sep, [place] [address] [address] Sep, [place] [address] [address] Sep, [place] [address] [address] Sep, [facility] [address] [address] Sep, [place] [address] [address] Sep, Dysthymic disorder F34.1 and Generalized anxiety disorder F41.1 [place] [address] [place] [id number] [place] [address] Sep, Asthma with acute exacerbati on in adult J45.901 ; Dysuria R30.0 ; Chronic kidney disease, stage 4 (severe) N18.4 and History of anemia Z86.2 [place] [id number] [facility] [id number] [address] [place] [address] Sep, Generalized anxiety disorder F41.1 and Dysthymic disorder F34.1 [place] [address] [facility] [id number] [address] [place] [address] August, Screening breast examination Z12.39 and Acute recurrent maxillary sinusitis J01.01 [place] [address] [facility] [id number] [address] [place] [address] August, Osteoarthritis of knees, jose ateral M17.0 [place] [address] [facility] [id number] [address] [place] [address] August, Chronic kidney disease, stag e 4 (severe) N18.4 ; Acute non- recurrent maxillary sinusitis J01.00 ; Urinary problem R39.89 ; Bowel habit changes R19.4 ; Functional diarrhea K59.1 and History of colon polyps Z86.010 [place] [address] [place] [id number] [address] [place] [address] Jul, Dysthymic disorder F34.1 and Generalized anxiety disorder F41.1 [place] [address] [facility] [id number] [address] [place] [address] Jul, [place] [address] [facility] [id number] [address] [place] [address] Jul, Dysthymic disorder F34.1 ; G eneralized anxiety disorder F41.1 and half-way use of drug Z79.899 [place] [address] [facility] [id number] [address] [place] [address] Jul, [place] [address] [place] [id number] [address] [place] [address] 16 Jun, 2015 [place] [address] [place] [id number] [address] [place] [address] Jun, [place] [address] [place] [address] May, [facility] [address] [address] May, Dysthymic disorder F34.1 and Generalized anxiety disorder F41.1 [place] [address] [place] [id number] [address] [place] [address] Apr, Kidney disease N28.9 [place] [address] [address] Apr, Generalized anxiety disorder F41.1 and Dysthymic disorder F34.1 [place] [address] [address] Apr, Chronic kidney disease, stag e 4 (severe) N18.4 [place] [address] [address] Apr, Generalized anxiety disorder F41.1 ; Major depression, recurrent F33.9 and Sleep disturbance G47.9 [place] [address] [address] Mar, Generalized anxiety disorder F41.1 and Dysthymic disorder F34.1 [place] [address] [address] Mar, Generalized anxiety disorder F41.1 ; Dysthymic disorder F34.1 and Insomnia G47.00 [place] [address] [place] [address] Mar, [place] [address] [place] [id number] [address] [place] [address] Mar, [place] [address] [address] Mar, Osteoarthritis of knees, jose ateral M17.0 [place] [address] [place] [id number] [address] [place] [address] Mar, Hypertension I10 ; Hypothyro id E03.9 ; Dysthymic disorder F34.1 ; Chronic kidney disease, stage 4 (severe) N18.4 and Nausea & vomiting R11.2 [place] [address] [address] Mar, Generalized anxiety disorder F41.1 ; Dysthymic disorder F34.1 and Insomnia G47.00 [place] [address] [address] Mar, Dehydration E86.0 ; Chronic kidney disease, stage 4 (severe) N18.4 and Nausea & vomiting R11.2 [facility] [address] [address] Mar, Gastroenteritis K52.9 [place] [address] [address] Mar, [place] [address] [address] Mar, [place] [address] [address] Feb, Dysthymic disorder F34.1 and Generalized anxiety disorder F41.1 [place] [address] [address] Jan, UTI (urinary tract infection ) N39.0 ; Asthma J45.909 ; Coronary artery disease involving ak chin coronary artery of ak chin heart, angina presence unspecified I25.10 ; Hypertension I10 ; Hypothyroid E03.9 ; Vitamin D deficiency E55.9 ; Insomnia G47.00 ; Palpitations R00.2 ; Depressed F32.9 ; Restless leg G25.81 and Anxiety F41.9 [place] [address] [address] Jan, Dysthymic disorder F34.1 and Generalized anxiety disorder F41.1 [place] [address] [address] Jan, [place] [address] [address] Dec, [place] [address] [address] Dec, Alkalosis 276.3 ; Chronic ki dney disease, Stage IV (severe) 585.4 ; Hyperpotassemia 276.7 ; Secondary hyperparathyroidism, renal 588.81 ; Proteinuria 791.0 ; Unspecified vitamin D deficiency 268.9 ; Anemia in chronic kidney disease 285.21 ; Other and unspecified hyperlipidemia 272.4 ; Hypertension, essential, benign 401.1 and Chronic kidney disease (CKD), stage III (moderate) 585.3 [place] [address] [address] Dec, [place] [address] [address] Dec, Depressive disorder, not els ewhere classified 311 and Generalized anxiety disorder 300.02 [place] [address] [address] Dec, [place] [address] [address] Dec, [place] [address] [address] Nov, Depressive disorder, not els ewhere classified 311 and Generalized anxiety disorder 300.02 [place] [address] [address] Nov, Arthritis of both knees 716. [address] [address] 07 Nov, 2014 PAF (paroxysmal atrial fibri llation) 427.31 ; CAD (coronary artery disease) 414.00 ; Chest pain 786.50 and Chronic kidney disease (CKD) stage G4/A1, severely decreased glomerular filtration rate (GFR) between 15-29 mL/min/1.73 square meter and albuminuria creatinine ratio less than 30 mg/g 585.4 [facility] [address] [place] [id number] [address] [place] [address] Oct, Coronary atherosclerosis of unspecified type of vessel, ak chin or graft 414.00 ; Chronic kidney disease, Stage IV (severe) 585.4 ; Hypertension 401.9 and Edema 782.3 [facility] [address] [place] [id number] [place] [address] Oct, Depressive disorder, not els ewhere classified 311 and Generalized anxiety disorder 300.02 [facility] [address] [address] Oct, Depressive disorder, not els ewhere classified 311 and Generalized anxiety disorder 300.02 [place] [address] [address] Oct, [place] [address] [address] Oct, [facility] [address] [address] Sep, [place] [address] [address] Sep, Chronic kidney disease, Stag e IV (severe) 585.4 [place] [address] [address] Sep, [facility] [address] [address] Sep, Coronary atherosclerosis of unspecified type of vessel, ak chin or graft 414.00 ; Hypertension 401.9 ; Edema 782.3 and Hypothyroidism 244.[address] [address] Sep, Coronary atherosclerosis of unspecified type of vessel, ak chin or graft 414.00 ; Hypertension 401.9 ; Fibromyalgia 729.1 ; Edema 782.3 ; Hypothyroidism 244.9 and Anemia 285.[address] [place] [address] 04 Sep, 2014 Anxiety disorder, unspecifie d 300.00 and Depressive disorder, not elsewhere classified 311 [facility] [address] [id number] [address] [place] [address] Sep, [facility] [address] [facility] [id number] [address] [place] [address] August, Generalized anxiety disorder 300.02 [facility] [address] [id number] [address] [place] [address] August, Closed fracture of lateral m alleolus 824.2 [facility] [address] [id number] [address] [place] [address] Jul, [facility] [address] [facility] [id number] [address] [place] [address] Jul, [facility] [address] [facility] [id number] [address] [place] [address] Jun, [facility] [address] [id number] [address] [place] [address] Jun, [facility] [address] [facility] [id number] [address] [place] [address] Jun, [facility] [address] [facility] [id number] [address] [place] [address] Jun, [facility] [address] [facility] [id number] [address] [place] [address] Jun, [facility] [address] [facility] [id number] [address] [place] [address] Jun, [facility] [address] [facility] [id number] [address] [place] [address] May, [facility] [address] [id number] [address] [place] [address] May, [facility] [address] [facility] [id number] [address] [place] [address] May, [facility] [address] [id number] [address] [place] [address], [place] [address] 18 May, 2014 [facility] [address] [id number] [address] [place] [address], [place] [address] 16 May, 2014 [facility] [address] [id number] [address] [place] [address], [place] [address] 16 May, 2014 [facility] [address] [id number] [address] [place] [address], [place] [address] 13 May, 2014 [facility] [address] [id number] [address] [place] [address], [place] [address] 13 May, 2014 [facility] [address] [id number] [address] [place] [address], [place] [address] 10 May, 2014 [facility] [address] [id number] [address] [place] [address], [place] [address] 10 May, 2014 [facility] [address] [id number] [address] [place] [address], [place] [address] Apr, [facility] [address] [id number] [address] [place] [address], [place] [address] Apr, [facility] [address] [id number] [address] [place] [address], [place] [address] Mar, [facility] [address] [id number] [address] [place] [address], [place] [address] Mar, [facility] [address] [id number] [address] [place] [address], [place] [address] Mar, [facility] [address] [id number] [address] [place] [address], [place] [address] Mar, [facility] [address] [id number] [address] [place] [address], [place] [address] Mar, [facility] [address] [id number] [address] [place] [address], [place] [address] Mar, [facility] [address] [id number] [address] [place] [address], [place] [address] Mar, [facility] [address] [id number] [address] [place] [address], [place] [address] Feb, [facility] [address] [id number] [address] [place] [address], [place] [id number] Feb, [facility] [address] [id number] [address] [place] [address], [place] [id number] Feb, [facility] [address] [id number] [address] [place] [address], [place] [id number] Jan, [facility] [address] [id number] [address] [place] [address], [place] [id number] Jan, [facility] [address] [id number] [address] [place] [address], [place] [id number] Jan, [facility] [address] [id number] [address] [place] [address], [place] [id number] Jan, [facility] [address] [id number] [address] [place] [address], [place] [id number] Jan, [facility] [address] [id number] [address] [place] [address], [place] [id number] Jan, [facility] [address] [id number] [address] [place] [address], [place] [id number] Jan, [facility] [address] [id number] [address] [place] [address], [place] [id number] Jan, [facility] [address] [id number] [address] [place] [address], [place] [id number] Jan, [facility] [address] [id number] [address] [place] [address], [place] [id number] Jan, [facility] [address] [id number] [address] [place] [address], [place] [id number] Nov, [facility] [address] [id number] [address] [place] [address], [place] [id number] Nov, [facility] [address] [id number] [address] [place] [address], [place] [id number] Nov, [facility] [address] [id number] [address] [place] [address], [place] [id number] Oct, [facility] [address] [id number] [address] [place] [address], [place] [id number] Oct, [facility] [address] [id number] [address] [place] [address], [place] [id number] Oct, [facility] [address] [id number] [address] [place] [address], [place] [address] Oct, [facility] [address] [id number] [address] [place] [address], [place] [address] Oct, [facility] [address] [id number] [address] [place] [address], [place] [address] Oct, [facility] [address] [id number] [address] [place] [address], [place] [address] Oct, [facility] [address] [id number] [address] [place] [address], [place] [address] Oct, [facility] [address] [id number] [address] [place] [address], [place] [address] Oct, [facility] [address] [id number] [address] [place] [address], [place] [address] Sep, [facility] [address] [id number] [address] [place] [address], [place] [address] Sep, [facility] [address] [id number] [address] [place] [address], [place] [address] Sep, [facility] [address] [id number] [address] [place] [address], [place] [address] Sep, [facility] [address] [id number] [address] [place] [address], [place] [address] Sep, [facility] [address] [id number] [address] [place] [address], [place] [address] Sep, [facility] [address] [id number] [address] [place] [address], [place] [address] Sep, [facility] [address] [id number] [address] [place] [address], [place] [address] Sep, [facility] [address] [id number] [address] [place] [address], [place] [address] Sep, [facility] [address] [id number] [address] [place] [address], [place] [address] August, [facility] [address] [id number] [address] [place] [address], [place] [address] August, [facility] [address] [id number] [address] [place] [address], [place] [address] August, [facility] [address] [id number] [address] [place] [address], [place] [address] August, [facility] [address] [id number] [address] [place] [address], [place] [address] August, [facility] [address] [id number] [address] [place] [address], [place] [address] August, [facility] [address] [id number] [address] [place] [address], [place] [address] Jul, [facility] [address] [id number] [address] [place] [address], [place] [address] Jul, [facility] [address] [id number] [address] [place] [address], [place] [address] Jul, [facility] [address] [id number] [address] [place] [address], [place] [address] Jul, [facility] [address] [id number] [address] [place] [address], [place] [address] Jul, [facility] [address] [id number] [address] [place] [address], [place] [address] Jul, [facility] [address] [id number] [address] [place] [address], [place] [address] 10 Jun, 2013 [facility] [address] [id number] [address] [place] [address], [place] [address] Jun, [facility] [address] [id number] [address] [place] [address], [place] [address] May, [facility] [address] [id number] [address] [place] [address], [place] [address] May, [facility] [address] [id number] [address] [place] [address], [place] [address] May, [facility] [address] [id number] [address] [place] [address], [place] [address] May, [facility] [address] [id number] [address] [place] [address], [place] [address] Apr, [facility] [address] [id number] [address] [place] [address], [place] [address] Apr, [facility] [address] [id number] [address] [place] [address], [place] [address] Mar, [facility] [address] [id number] [address] [place] [address], [place] [address] Mar, [facility] [address] [id number] [address] [place] [address], [place] [address] 17 Mar, 2013 [facility] [address] [id number] [address] [place] [address], [place] [address] Mar, [facility] [address] [id number] [address] [place] [address], [place] [address] Mar, [facility] [address] [id number] [address] [place] [address], [place] [address] Mar, [facility] [address] [id number] [address] [place] [address], [place] [address] Feb, [facility] [address] [id number] [address] [place] [address], [place] [address] Feb, [facility] [address] [id number] [address] [place] [address], [place] [address] Feb, [facility] [address] [id number] [address] [place] [address], [place] [address] Feb, [facility] [address] [id number] [address] [place] [address], [place] [address] Feb, [facility] [address] [id number] [address] [place] [address] Feb, [facility] [address] [id number] [address] [place] [address], [place] [address] Jan, [facility] [address] [id number] [address] [place] [address], [place] [address] Jan, [facility] [address] [id number] [address] [place] [address], [place] [address] Jan, [facility] [address] [id number] [address] [place] [address], [place] [address] Jan, [facility] [address] [id number] [address] [place] [address], [place] [address] Jan, [facility] [address] [id number] [address] [place] [address], [place] [address] Jan, [facility] [address] [id number] [address] [place] [address], [place] [address] Dec, [facility] [address] [id number] [address] [place] [address] Dec, [facility] [address] [id number] [address] [place] [address], [place] [address] Nov, [facility] [address] [id number] [address] [place] [address], [place] [address] Nov, [facility] [address] [id number] [address] [place] [address], [place] [address] Oct, [facility] [address] [id number] [address] [place] [address], [place] [address] Oct, [facility] [address] [id number] [address] [place] [address], [place] [address] Oct, [facility] [address] [id number] [address] [place] [address], [place] [address] Oct, [facility] [address] [id number] [address] [place] [address], [place] [address] Oct, [facility] [address] [id number] [address] [place] [address], [place] [address] Oct, [facility] [address] [id number] [address] [place] [address], [place] [address] Sep, [facility] [address] [id number] [address] [place] [address], [place] [address] Sep, [facility] [address] [id number] [address] [place] [address], [place] [address] Sep, [facility] [address] [id number] [address] [place] [address], [place] [address] Sep, [facility] [address] [id number] [address] [place] [address], [place] [address] August, [facility] [address] [id number] [address] [place] [address], [place] [address] August, [facility] [address] [id number] [address] [place] [address], [place] [address] August, [facility] [address] [id number] [address] [place] [address], [place] [address] August, [facility] [address] [id number] [address] [place] [address], [place] [address] August, [facility] [address] [id number] [address] [place] [address], [place] [address] Jul, [facility] [address] [id number] [address] [place] [address], [place] [address] Jul, [facility] [address] [id number] [address] [place] [address], [place] [address] Jul, [facility] [address] [id number] [address] [place] [address], [place] [address] Jul, [facility] [address] [id number] [address] [place] [address], [place] [address] Jul, [facility] [address] [id number] [address] [place] [address], [place] [address] Jul, [facility] [address] [id number] [address] [place] [address], [place] [address] Jul, [facility] [address] [id number] [address] [place] [address], [place] [address] Jul, [facility] [address] [id number] [address] [place] [address], [place] [address] Jul, [facility] [address] [id number] [address] [place] [address], [place] [address] Jul, [facility] [address] [id number] [id number] Jun, [facility] [address] [id number] [address] [place] [address], [place] [address] Jun, [facility] [address] [id number] [address] [place] [address], [place] [address] Jun, [facility] [address] [id number] [address] [place] [address], [place] [address] Jun, [facility] [address] [id number] [address] [place] [address], [place] [address] Jun, [facility] [address] [id number] [address] [place] [address], [place] [address] May, [facility] [address] [id number] [address] [place] [address], [place] [address] May, [facility] [address] [id number] [address] [place] [address] May, [facility] [address] [id number] [address] [place] [address], [place] [address] Apr, [facility] [address] [id number] [address] [place] [address], [place] [address] Apr, [facility] [address] [id number] [address] [place] [address], [place] [address] Apr, [facility] [address] [id number] [address] [place] [address], [place] [address] Apr, [facility] [address] [id number] [address] [place] [address], [place] [address] Apr, [facility] [address] [id number] [address] [place] [address], [place] [address] Apr, [facility] [address] [id number] [address] [place] [address], [place] [address] Mar, [facility] [address] [id number] [address] [place] [address], [place] [address] Mar, [facility] [address] [id number] [address] [place] [address], [place] [address] Mar, [facility] [address] [id number] [address] [place] [address], [place] [address] Mar, [facility] [address] [id number] [address] [place] [address], [place] [address] Feb, [facility] [address] [id number] [address] [place] [address], [place] [address] Feb, [facility] [address] [id number] [address] [place] [address], [place] [address] Feb, [facility] [address] [id number] [address] [place] [address], [place] [address] Feb, [facility] [address] [id number] [address] [place] [address], [place] [address] Feb, [facility] [address] [id number] [address] [place] [address], [place] [address] Feb, [facility] [address] [id number] [address] [place] [address], [place] [address] Feb, [facility] [address] [id number] [address] [place] [address], [place] [address] Feb, [facility] [address] [id number] [address] [place] [address], [place] [address] Feb, [facility] [address] [id number] [address] [place] [address], [place] [address] Feb, [facility] [address] [id number] [address] [place] [address], [place] [address] Feb, [facility] [address] [id number] [address] [place] [address], [place] [address] Feb, [facility] [address] [id number] [address] [place] [address], [place] [address] Feb, [facility] [address] [id number] [address] [place] [address], [place] [address] Feb, [facility] [address] [id number] [address] [place] [address], [place] [address] Feb, [facility] [address] [id number] [address] [place] [address], [place] [address] Feb, [facility] [address] [id number] [address] [place] [address], [place] [address] Jan, [facility] [address] [id number] [address] [place] [address], [place] [address] Jan, [facility] [address] [id number] [address] [place] [address], [place] [address] Jan, [facility] [address] [id number] [address] [place] [address], [place] [address] Jan, [facility] [address] [id number] [address] [place] [address], [place] [address] Jan, [facility] [address] [id number] [address] [place] [address], [place] [address] Jan, [facility] [address] [id number] [address] [place] [address], [place] [address] Jan, [facility] [address] [id number] [address] [place] [address], [place] [address] 16 Jan, 2012 [facility] [address] [id number] [address] [place] [address], [place] [address] 16 Jan, 2012 [facility] [address] [id number] [address] [place] [address], [place] [address] 15 Jan, 2012 [facility] [address] [id number] [address] [place] [address], [place] [address] 15 Jan, 2012 [facility] [address] [id number] [address] [place] [address], [place] [address] Jan, [facility] [address] [id number] [address] [place] [address], [place] [address] 26 Sep2011 [facility] [address] [id number] [address] [place] [address] [address] 26 Sep2011 [facility] [address] [id number] [address] [place] [address] [address] 24 Sep2011 [facility] [address] [id number] [address] [place] [address], [place] [address] 23 Sep, 2011 [facility] [address] [id number] [address] [place] [address] 22 Sep, 2011 [facility] [address] [id number] [address] [place] [address], [place] [address] 21 Sep2011 [facility] [address] [id number] [address] [place] [address], [place] [address] 20 Sep, 2011 [facility] [address] [id number] [address] [place] [address], [place] [address] 20 Dec, 2011 [facility] [address] [id number] [address] [place] [address], [place] [address] 07 Dec, 2011 [facility] [address] [id number] [address] [place] [address], [place] [address] 06 Sep, 2011 [facility] [address] [id number] [address] [place] [address], [place] [address] 06 Dec, 2011 [facility] [address] [id number] [address] [place] [address], [place] [address] 05 Dec, 2011 [facility] [address] [id number] [address] [place] [address], [place] [address] 23 Nov, 2011 [facility] [address] [id number] [address] [place] [address], [place] [address] 17 Nov, 2011 [facility] [address] [id number] [address] [place] [address], [place] [address] Nov, [facility] [address] [id number] [address] [place] [address], [place] [address] Nov, [facility] [address] [id number] [address] [place] [address], [place] [address] Nov, [facility] [address] [id number] [address] [place] [address], [place] [address] Nov, [facility] [address] [id number] [address] [place] [address], [place] [address] Nov, [facility] [address] [id number] [address] [place] [address], [place] [address] Nov, [facility] [address] [id number] [address] [place] [address], [place] [address] Oct, [facility] [address] [id number] [address] [place] [address], [place] [address] Oct, [facility] [address] [id number] [address] [place] [address], [place] [address] Oct, [facility] [address] [id number] [address] [place] [address], [place] [address] Oct, [facility] [address] [id number] [address] [place] [address], [place] [address] Oct, [facility] [address] [id number] [address] [place] [address], [place] [address] Oct, [facility] [address] [id number] [address] [place] [address], [place] [address] Oct, [facility] [address] [id number] [address] [place] [address], [place] [address] Sep, [facility] [address] [id number] [address] [place] [address], [place] [address] Sep, [facility] [address] [id number] [address] [place] [address], [place] [address] August, [facility] [address] [id number] [address] [place] [address], [place] [address] August, [facility] [address] [id number] [address] [place] [address], [place] [address] August, [facility] [address] [id number] [address] [place] [address], [place] [address] August, [facility] [address] [id number] [address] [place] [address], [place] [address] Jul, [facility] [address] [id number] [address] [place] [address], [place] [address] Jul, [facility] [address] [id number] [address] [place] [address], [place] [address] Jul, [facility] [address] [id number] [address] [place] [address], [place] [address] Jul, [facility] [address] [id number] [address] [place] [address], [place] [address] Jul, [facility] [address] [id number] [address] [place] [address], [place] [address] Jul, [facility] [address] [id number] [address] [place] [address], [place] [address] Jul, [facility] [address] [id number] [address] [place] [address], [place] [address] Jul, [facility] [address] [id number] [address] [place] [address], [place] [id number] Jul, [facility] [address] [id number] [address] [place] [address], [place] [id number] 23 Jun, 2011 [facility] [address] [id number] [address] [place] [address], [place] [address] 19 Jun, 2011 [facility] [address] [id number] [address] [place] [address], [place] [address] 15 Jun, 2011 [facility] [address] [id number] [address] [place] [address], [place] [address] 14 Jun, 2011 [facility] [address] [id number] [address] [place] [address], [place] [address] Jun, [facility] [address] [id number] [address] [place] [address], [place] [address] Jun, [facility] [address] [id number] [address] [place] [address], [place] [address] Jun, [facility] [address] [id number] [address] [place] [address], [place] [address] 25 May, 2011 [facility] [address] [id number] [address] [place] [address], [place] [address] 24 May, 2011 [facility] [address] [id number] [address] [place] [address], [place] [address] 16 May, 2011 [facility] [address] [id number] [address] [place] [address], [place] [address] May, [facility] [address] [id number] [address] [place] [address], [place] [address] May, [facility] [address] [id number] [address] [place] [address], [place] [address] Apr, [facility] [address] [id number] [address] [place] [address], [place] [address] 19 Apr, 2011 [facility] [address] [id number] [address] [place] [address], [place] [address] 13 Apr, 2011 [facility] [address] [id number] [address] [place] [address], [place] [address] Apr, [facility] [address] [id number] [address] [place] [address], [place] [address] 05 Apr, 2011 [facility] [address] [id number] [address] [place] [address], [place] [address] Mar, [facility] [address] [id number] [address] [place] [address], [place] [address] Mar, [facility] [address] [id number] [address] [place] [address], [place] [id number] Mar, [facility] [address] [id number] [address] [place] [address], [place] [address] Mar, [facility] [address] [id number] [address] [place] [address], [place] [address] Mar, [facility] [address] [id number] [address] [place] [address], [place] [address] Mar, [facility] [address] [id number] [address] [place] [address], [place] [address] Mar, [facility] [address] [id number] [address] [place] [address], [place] [address] Feb, [facility] [address] [id number] [address] [place] [address], [place] [address] Feb, [facility] [address] [id number] [address] [place] [address], [place] [address] Feb, [facility] [address] [id number] [address] [place] [address], [place] [address] Feb, [facility] [address] [id number] [address] [place] [address], [place] [address] Jan, [facility] [address] [id number] [address] [place] [id number] Jan, [facility] [address] [id number] [address] [place] [id number] Jan, [facility] [address] [id number] [address] [place] [id number] Jan, [facility] [address] [id number] [address] [place] [id number] Nov, [facility] [address] [id number] [address] [place] [id number] Mar, [facility] [address] [id number] [address] [place] [id number] Mar, [facility] [address] [id number] [address] [place] [id number] Mar, [facility] [address] [id number] [address] [place] [id number] Mar, [facility] [address] [id number] [address] [place] [id number] Mar, [facility] [address] [id number] [address] [place] [id number] Mar, [facility] [address] [id number] [address] [place] [id number] Feb, [facility] [address] [id number] [address] [place] [id number] Feb, [facility] [address] [id number] [address] [place] [id number] Jan, [facility] [address] [id number] [address] [place] [id number] Jan, [facility] [address] [id number] [address] [place] [id number] Jan, IMMUNIZATIONS No Known Immunizations SOCIAL HISTORY Never Assessed REASON FOR VISIT PLAN OF CARE VITAL SIGNS Blood pressure systolic 160 mmHg 2012-01-04 Blood pressure diastolic 92 mmHg 2012-01-04 MEDICATIONS Unknown Medications RESULTS No Results PROCEDURES Procedure Date Ordered Result Body Site URINE CULTURE/COLONY COUNT Jan 04, 2012 COMPLETE CBC W/AUTO DIFF WBC Jan 04, 2012 RHEUMATOID FACTOR, QUANT Jan 04, 2012 IRON BINDING TEST Jan 04, 2012 ASSAY OF IRON Jan 04, 2012 URINALYSIS, AUTO W/SCOPE Jan 04, 2012 RENAL FUNCTION PANEL Jan 04, 2012 DRAIN/INJECT, JOINT/BURSA Jan 04, 2012 ASSAY OF VITAMIN D Jan 04, 2012 VENIPUNCT, ROUTINE* Jan 04, 2012 INSTRUCTIONS MEDICATIONS ADMINISTERED No Known Medications [...] History CPAP Noncompliance_ Dr. 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 Medical History Bacterial meningitis 12/2016 Medical [...] 09-2015 & 2007 Surgical History Bladder surgery [facility] 03/2016 Surgical History Neurotransmitter placed 10/2017 Surgical History retninal repair 12/31/2017 Surgical History cataract surgery 2018 Surgical History cataract surgery 2019 Surgical History SCS trial x7 days 2019 Hospitalization History Surgeries Only Hospitalization History bacterial meningitis December 2016 Hospitalization History [facility] psych for SI 1988 Hospitalization History [facility]-Altered mental status 05/2017 Hospitalization History sepsis, UTI, headache 08/03/2018-
--- OUTSIDE RECORDS SUMMARY | 2019-08-01 10:37 | XMS REPORT ---
Author Author Lola Tyson Doctor Organization [facility] Address Unknown Phone Unavailable Care Team Providers Care Licensed Funeral Director Name Role Phone Migration, Doctor Unavailable Unavailable PROBLEMS Type Condition ICD9-CM Code [id number] Code Onset Dates Condition S tatus SNOMED Code Problem Restless leg G25.81 Active 4092354 8 Problem Insomnia G47.00 Active 376136695 Problem Hypothyroid E03.9 Active 72199376 Problem Palpitations R00.2 Active 5519079 2 Problem Asthma J45.909 Active 134267478 Problem Chronic kidney disease, stage 4 (severe) N18.4 Active 701643337 Problem Depressed F32.9 Active 98057764 Problem Primary osteoarthritis of left knee M17.12 Active 317271186 Problem Generalized anxiety disorder F41.1 A ctive 17568336 Problem Anemia in chronic kidney disease D63.1 Active 212888778266460 Problem Low back pain M54.5 Active 200634 009 Problem Coronary artery disease invo lving [place] coronary artery of [place] heart, angina presence unspecified I25.10 Active 2030852407441 Problem Dysthymic disorder F34.1 Active 7 8117258 Problem Other seasonal allergic rhinitis J30.2 Active 248033037 Problem History of anemia Z86.2 Active 27 9674448 Problem Fibromyalgia M79.7 Active 5336096 05 Problem Hypokalemia E87.6 Active 03386440 Problem Vitamin D deficiency E55.9 Active 77712883 Problem Mixed stress and urge urinary incontinence N39.46 Active 439270055 Problem Chronic kidney disease, unspecified N18.9 Active 134553867 Problem Abnormal chest CT R93.8 Active 44 9366275 Problem Essential (primary) hypertension I10 Active 50992693 Problem Long-term use of high-risk medication Z79.899 Active 490113518 Problem Degenerative tear of medial meniscus of left knee M23.204 Active 983223732 Problem Mood disorder F39 Active 637285 05 Problem Stage 3 chronic kidney disease N18.3 Active 484000012 Problem Perimenopausal vasomotor symptoms N95.1 Active 406518329 Problem History of colon polyps Z86.010 Active 180912536 Problem Other chronic pain G89.29 Active 8 0395485 Problem Functional diarrhea K59.1 Active 75635889 Problem Asthma with acute exacerbation in adult J45.901 Active 389331770 Problem Body mass index (BMI) of 40.0-44.9 in adult Z68.41 Active 401463799 Problem Seasonal allergic rhinitis due to pollen J30.1 Active 11131425 Problem Restless leg syndrome G25.81 Active 48422361 Problem Chronic pain syndrome G89.4 Active 011414337 ALLERGIES No Information ENCOUNTERS Encounter Location Date Diagnosis [facility] [address] [facility] [id number] [address] [place] [phone] Dec, [facility] [address] [facility] [id number] [address] [place] [phone] Nov, [facility] [address] [facility] [id number] [address] [place] [phone] Oct, [facility] [address] [facility] [id number] [address] [place] [phone] Oct, Cellulitis of left lower ext remity L03.116 and Morbid obesity E66.01 [facility] [address] [facility] [id number] [address] [place] [phone] Oct, [facility] [address] [facility] [id number] [address] [place] [phone] Oct, [facility] [address] [facility] [id number] [address] [place] [phone] Oct, Generalized anxiety disorder F41.1 and Major depressive disorder, recurrent episode with anxious distress F33.9 [facility] [address] [facility] [id number] [address] [place] [phone] Oct, [facility] [address] [facility] [id number] [address] [place] [phone] Oct, Chronic pain syndrome G89.4 [facility] [address] [facility] [id number] [address] [place] [phone] Oct, Chronic pain syndrome G89.4 [facility] [address] [facility] [id number] [address] [place] [phone] Oct, UTI symptoms R39.9 ; Acute c ystitis without hematuria N30.00 and Morbid obesity E66.01 [facility] [address] [facility] [id number] [address] [place] [phone] Oct, [facility] [address] [facility] [id number] [address] [place] [phone] Oct, Chronic pain syndrome G89.4 [facility] [address] [facility] [id number] [address] [place] [phone] Sep, [facility] [address] [facility] [id number] [address] [place] [id number] Sep, Generalized anxiety disorder F41.1 and Major depressive disorder, recurrent episode with anxious distress F33.9 [facility] [address] [facility] [id number] [address] [place] [phone] Sep, Chronic kidney disease, stag e 4 (severe) N18.4 [facility] [address] [facility] [id number] [address] [place] [phone] Sep, Fibromyalgia M79.7 and Chron ic pain syndrome G89.4 [facility] [address] [facility] [id number] [address] [place] [phone] Sep, [address] [phone] Sep, Chronic pain syndrome G89.4 [facility] [address] [facility] [id number] [address] [place] [phone] Sep, [facility] [address] [facility] [id number] [address] [place] [phone] Sep, Chronic pain syndrome G89.4 ; Fibromyalgia M79.7 and Morbid obesity E66.01 [facility] [address] [facility] [id number] [address] [place] [phone] August, Generalized anxiety disorder F41.1 and Major depressive disorder, recurrent episode with anxious distress F33.9 [facility] [address] [id number] [address] [place] [id number] August, Fibromyalgia M79.7 [facility] [address] [id number] [address] [place] [phone] August, Restless leg syndrome G25.81 ; Vitamin D deficiency E55.9 ; Urinary tract infection without hematuria, site unspecified N39.0 ; Pain in right shoulder M25.511 ; Other chronic pain G89.29 ; Biceps tendinitis on right M75.21 and Morbid obesity E66.01 [facility] [address] [id number] [address] [place] [phone] Jul, Urinary tract infection with out hematuria, site unspecified N39.0 and Morbid obesity E66.01 [facility] [address] [id number] [address] [place] [phone] Jul, [facility] [address] [id number] [address] [place] [phone] Jul, [facility] [address] [id number] [address] [place] [id number] Jul, Fibromyalgia M79.7 [facility] [address] [id number] [address] [place] [phone] Jul, Acute pain of right shoulder M25.511 [facility] [address] [id number] [address] [place] [phone] Jul, Acute pain of right shoulder M25.511 and Morbid obesity E66.01 [facility] [address] [id number] [address] [place] [phone] Jun, [facility] [address] [id number] [address] [place] [id number] 14 Jun, 2018 Generalized anxiety disorder F41.1 and Major depressive disorder, recurrent episode with anxious distress F33.9 [facility] [address] [id number] [address] [place] [id number] 11 Jun, 2018 [facility] [id number] [place] [id number] 06 Jun, 2018 Fibromyalgia M79.7 [facility] [address] [place] [id number] [address] [place] [phone] 04 Jun, 2018 Acute pain of right shoulder M25.511 ; Acute pain of right hip M25.551 and Morbid obesity E66.01 [place] [address] [place] [id number] [address] [place] [id number] 11 May, 2018 Burning with urination R30.0 ; Vaginal discharge N89.8 ; Chronic kidney disease, stage 4 (severe) N18.4 ; Body mass index (BMI) of 40.0-44.9 in adult Z68.41 and Morbid obesity E66.01 [place] [address] [phone] 07 May, 2018 Fibromyalgia M79.7 [place] [address] [phone] 06 May, 2018 Generalized anxiety disorder F41.1 and Major depressive disorder, recurrent episode with anxious distress F33.9 [place] [address] [place] [phone] 24 Apr, 2018 [place] [address] [place] [id number] [address] [place] [phone] Apr, Fibromyalgia M79.7 [facility] [address] [place] [id number] [address] [place] [phone] 14 Mar, 2018 Acute UTI N39.0 and Dysuria R30.0 [place] [address] [id number] 10 Mar, 2018 Fibromyalgia M79.7 [facility] [address] [place] [id number] [address] [place] [phone] 15 Feb, 2018 [place] [address] [place] [id number] [address] [place] [id number] 14 Feb, 2018 [facility] [address] [facility] [id number] [address] [place] [phone] Feb, [facility] [address] [facility] [id number] [address] [place] [phone] Feb, Fibromyalgia M79.7 [facility] [address] [facility] [id number] [address] [place] [phone] 08 Feb, 2018 Complicated UTI (urinary tra ct infection) N39.0 [facility] [address] [id number] [address] [place] [phone] Feb, [facility] [address] [facility] [id number] [address] [place] [phone] Jan, Generalized anxiety disorder F41.1 and Major depressive disorder, recurrent episode with anxious distress F33.9 [facility] [address] [facility] [id number] [address] [place] [id number] Jan, Acute conjunctivitis of left eye, unspecified acute conjunctivitis type H10.32 [facility] [address] [facility] [id number] [address] [place] [phone] Jan, [facility] [address] [facility] [id number] [address] [place] [phone] Jan, Acute non-recurrent maxillar y sinusitis J01.00 ; Dysuria R30.0 ; Perimenopausal vasomotor symptoms N95.1 and Fibromyalgia M79.7 [facility] [address] [facility] [id number] [address] [place] [phone] 28 Dec, 2017 Vitamin D deficiency E55.9 [facility] [address] [facility] [id number] [address] [place] [phone] 27 Dec, 2017 Vitamin D deficiency E55.9 [facility] [address] [facility] [id number] [address] [place] [phone] 24 Dec, 2017 Vitamin D deficiency E55.9 [facility] [address] [facility] [id number] [address] [place] [phone] Dec, [facility] [address] [id number] [address] [place] [phone] Dec, Fibromyalgia M79.7 [facility] [address] [id number] [address] [place] [phone] Nov, [facility] [address] [id number] [address] [place] [phone] Nov, [facility] [address] [id number] [address] [place] [phone] Nov, [facility] [address] [id number] [address] [place] [phone] Nov, Fibromyalgia M79.7 ; Vision changes H53.9 ; Chest wall pain R07.89 and Chronic pain syndrome G89.4 [facility] [address] [id number] [address] [place] [phone] Nov, [facility] [address] [id number] [address] [place] [phone] Nov, Rash of hands R21 [facility] [address] [id number] [address] [place] [phone] Nov, Generalized anxiety disorder F41.1 and Major depressive disorder, recurrent episode with anxious distress F33.9 [facility] [address] [id number] [address] [place] [phone] Nov, Fibromyalgia M79.7 [facility] [address] [id number] [address] [place] [phone] Nov, Complicated UTI (urinary tra ct infection) N39.0 [facility] [address] [id number] [address] [place] [phone] Oct, [facility] [address] [id number] [address] [place] [phone] Oct, Generalized anxiety disorder F41.1 and Major depressive disorder, recurrent episode with anxious distress F33.9 [facility] [address] [id number] [address] [place] [phone] Oct, [facility] [address] [facility] [id number] [address] [place] [phone] Oct, Fibromyalgia M79.7 [facility] [address] [facility] [id number] [address] [place] [phone] Sep, Restless leg syndrome G25.81 and Restless leg G25.81 [facility] [address] [facility] [id number] [address] [place] [phone] Sep, [facility] [address] [facility] [id number] [address] [place] [phone] Sep, Seasonal allergic rhinitis d ue to pollen J30.1 ; Screening for breast cancer Z12.31 ; Chest pain at rest R07.9 ; Restless leg syndrome G25.81 ; Essential (primary) hypertension I10 and Depressed F32.9 [facility] [address] [facility] [id number] [address] [place] [phone] August, Fibromyalgia M79.7 [facility] [address] [facility] [id number] [address] [place] [phone] August, [facility] [address] [place] [id number] [address] [place] [phone] August, [facility] [address] [place] [id number] [address] [place] [phone] August, Abnormal chest CT R93.8 [facility] [address] [facility] [id number] [address] [place] [phone] August, Generalized anxiety disorder F41.1 and Major depressive disorder, recurrent episode with anxious distress F33.9 [facility] [address] [facility] [id number] [address] [place] [phone] August, Abnormal chest CT R93.8 [facility] [address] [facility] [id number] [address] [place] [phone] Jul, [facility] [address] [place] [id number] [address] [place] [phone] Jul, Chronic kidney disease, stag e 4 (severe) N18.4 [facility] [address] [id number] Jul, [facility] [address] [place] [id number] [place] [phone] Jul, Restless leg G25.81 ; Mixed stress and urge urinary incontinence N39.46 and Fibromyalgia M79.7 [facility] [address] [place] [id number] [place] [address] Jul, Chronic kidney disease, stag e 4 (severe) N18.4 [facility] [address] [address] Jun, Orthostatic hypotension I95. 1 ; Chronic kidney disease, stage 4 (severe) N18.4 ; Chest wall discomfort R07.89 and Body mass index (BMI) of 40.0- 44.9 in adult Z68.41 [place] [address] [address] Jun, [facility] [address] [address] Jun, Orthostatic hypotension I95. 1 [facility] [address] [address] Jun, [facility] [address] [place] [id number] [place] [phone] Jun, Orthostatic hypotension I95. 1 ; Dysuria R30.0 and Acute cystitis without hematuria N30.00 [facility] [address] [address] Jun, [facility] [address] [place] [id number] [place] [phone] Jun, Chronic kidney disease, stag e 4 (severe) N18.4 [facility] [address] [place] [id number] [address] [place] [phone] Jun, Fibromyalgia M79.7 [facility] [address] [facility] [id number] [address] [place] [phone] Jun, [facility] [address] [facility] [id number] [address] [place] [phone] Jun, [facility] [address] [facility] [id number] [address] [place] [phone] May, Abnormal chest CT R93.8 and Stage 3 chronic kidney disease N18.3 [facility] [address] [facility] [id number] [address] [place] [phone] May, Chronic kidney disease, stag e 4 (severe) N18.4 [facility] [address] [facility] [id number] [address] [place] [id number] May, Chronic kidney disease, stag e 4 (severe) N18.4 [facility] [address] [facility] [id number] [address] [place] [phone] May, Abnormal chest CT R93.8 [facility] [address] [facility] [id number] [address] [place] [phone] May, [facility] [address] [facility] [id number] [address] [place] [id number] May, [facility] [address] [facility] [id number] [address] [place] [id number] May, Generalized anxiety disorder F41.1 and Major depressive disorder, recurrent episode with anxious distress F33.9 [facility] [address] [facility] [id number] [address] [place] [id number] May, Mood disorder F39 [facility] [address] [facility] [id number] [address] [place] [phone] Apr, [facility] [address] [facility] [id number] [address] [place] [address] Apr, Infected skin lesion L08.9 a nd Muscle strain of right shoulder region, initial encounter S46.911A [facility] [address] [id number] [address] [place] [id number] Apr, Generalized anxiety disorder F41.1 and Major depressive disorder, recurrent episode with anxious distress F33.9 [facility] [address] [id number] [address] [place] [phone] Apr, [facility] [address] [id number] [address] [place] [address] Apr, Recent urinary tract infecti on Z87.440 and Hypothyroid E03.9 [facility] [address] [id number] [address] [place] [phone] Apr, Generalized anxiety disorder F41.1 and Major depressive disorder, recurrent episode with anxious distress F33.9 [facility] [address] [id number] [address] [place] [phone] Apr, Recent urinary tract infecti on Z87.440 [facility] [address] [id number] [address] [place] [phone] Mar, [facility] [address] [id number] [address] [place] [id number] Mar, Dysuria R30.0 ; Acute cystit is without hematuria N30.00 and BMI 40.0-44.9, adult Z68.41 [facility] [address] [id number] [address] [place] [phone] Mar, [facility] [address] [id number] [address] [place] [phone] Mar, [facility] [address] [id number] [address] [place] [phone] Mar, Generalized anxiety disorder F41.1 and Major depressive disorder, recurrent episode with anxious distress F33.9 [facility] [address] [id number] [address] [place] [id number] Feb, Conjunctivitis, bacterial H1 0.9 [facility] [address] [facility] [id number] [address] [place] [phone] Feb, [facility] [address] [facility] [id number] [place] [address] Feb, Conjunctivitis, bacterial H1 0.9 [facility] [address] [place] [id number] [place] [phone] Feb, [facility] [address] [place] [id number] [place] [phone] Feb, Dysuria R30.0 ; Acute cystit is N30.00 and BMI 40.0-44.9, adult Z68.41 [place] [address] [address] Feb, [place] [address] [address] Feb, Generalized anxiety disorder F41.1 and Major depressive disorder, recurrent episode with anxious distress F33.9 [place] [address] [address] Feb, Mood disorder F39 and BMI 40 .0-44.9, adult Z68.41 [place] [address] [place] [id number] [place] [phone] Jan, [place] [address] [id number] Jan, [place] [address] [phone] Jan, Hypothyroid E03.[address] [id number] Jan, [place] [address] [place] [id number] [place] [phone] Jan, Chronic kidney disease, unsp ecified N18.9 ; Hypokalemia E87.6 ; Essential (primary) hypertension I10 ; Fibromyalgia M79.7 ; Coronary artery disease involving chene[place] coronary artery of chene[place] heart, angina presence unspecified I25.10 ; Hypothyroid E03.9 and Encounter for immunization Z23 [facility] [address] [facility] [id number] [address] [place] [phone] 04 Jan, 2017 Hypothyroid E03.9 [facility] [address] [facility] [id number] [address] [place] [phone] Jan, [facility] [address] [facility] [id number] [address] [place] [phone] 28 Dec, 2016 Vitamin D deficiency E55.9 [facility] [address] [facility] [id number] [address] [place] [phone] 28 Dec, 2016 Primary osteoarthritis of le ft knee M17.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 [place] [address] [facility] [id number] [address] [place] [phone] 19 Dec, 2016 Fibromyalgia M79.7 [facility] [address] [facility] [id number] [address] [place] [phone] 18 Dec, 2016 Mood disorder F39 [place] [address] [facility] [id number] [address] [place] [id number] 13 Dec, 2016 [place] [address] [facility] [id number] [address] [place] [id number] 13 Dec, 2016 Generalized anxiety disorder F41.1 and Major depressive disorder, recurrent episode with anxious distress F33.9 [facility] [address] [facility] [id number] [address] [place] [id number] 11 Dec, 2016 [facility] [address] [facility] [id number] [address] [place] [id number] 08 Dec, 2016 Streptococcal meningitis G00 .2 [facility] [address] [facility] [id number] [address] [place] [id number] 07 Dec, 2016 Streptococcal meningitis G00 .2 [place] [address] [facility] [id number] [address] [place] [id number] Dec, [facility] [address] [facility] [id number] [address] [place] [phone] Dec, Streptococcal meningitis G00 .2 [facility] [address] [facility] [id number] [address] [place] [phone] Dec, [facility] [address] [facility] [id number] [address] [place] [phone] Dec, Major depressive disorder, r ecurrent episode with anxious distress F33.9 [facility] [address] [facility] [id number] [address] [place] [phone] Nov, Fever, unspecified fever cau se R50.9 [facility] [address] [facility] [id number] [address] [place] [phone] Nov, [place] [address] [place] [id number] [address] [place] [phone] Nov, Hypothyroid E03.9 [facility] [address] [place] [id number] [address] [place] [phone] Nov, Generalized anxiety disorder F41.1 and Major depressive disorder, recurrent episode with anxious distress F33.9 [place] [address] [place] [id number] [address] [place] [phone] Nov, [facility] [address] [place] [id number] [address] [place] [id number] Oct, Dental examination Z01.20 [facility] [address] [place] [id number] [address] [place] [phone] Oct, Generalized anxiety disorder F41.1 and Major depressive disorder, recurrent episode with anxious distress F33.9 [facility] [address] [place] [id number] [address] [place] [phone] Oct, Chronic kidney disease, stag e 4 (severe) N18.4 [facility] [address] [place] [id number] [address] [place] [phone] Oct, [facility] [address] [place] [id number] [address] [place] [phone] Oct, Fibromyalgia M79.7 [facility] [address] [facility] [id number] [address] [place] [id number] Oct, [facility] [address] [facility] [id number] [address] [place] [phone] Oct, Generalized anxiety disorder F41.1 ; Major depressive disorder, recurrent episode with anxious distress F33.9 and Bipolar disorder, current episode manic without psychotic features F31.10 [facility] [address] [facility] [id number] [address] [place] [id number] Sep, [place] [address] [facility] [id number] [address] [place] [phone] Sep, [place] [address] [place] [id number] [address] [place] [phone] Sep, Vitamin D deficiency E55.9 [place] [address] [place] [id number] [address] [place] [phone] Sep, Vitamin D deficiency E55.9 [place] [address] [place] [id number] [address] [place] [phone] Sep, [place] [address] [facility] [id number] [address] [place] [id number] Sep, Chronic kidney disease, stag e 4 (severe) N18.4 ; Hypothyroid E03.9 ; Restless leg G25.81 ; Fibromyalgia M79.7 ; Essential (primary) hypertension I10 ; Vitamin D deficiency E55.9 ; Dyspepsia R10.13 ; Anemia in chronic kidney disease D63.1 ; Chronic kidney disease, unspecified N18.9 ; Coronary artery disease involving chenega coronary artery of chenega heart, angina presence unspecified I25.10 ; Screening breast examination Z12.39 and Low back pain M54.5 [facility] [address] [place] [id number] [address] [place] [phone] August, Generalized anxiety disorder F41.1 and Major depressive disorder, recurrent episode with anxious distress F33.9 [facility] [address] [facility] [id number] [address] [place] [phone] August, Generalized anxiety disorder F41.1 and Major depressive disorder, recurrent episode with anxious distress F33.9 [facility] [address] [facility] [id number] [address] [place] [id number] August, Fibromyalgia M79.7 [facility] [address] [place] [id number] [address] [place] [phone] Jul, Generalized anxiety disorder F41.1 and Major depressive disorder, recurrent episode with anxious distress F33.9 [place] [address] [facility] [id number] [address] [place] [phone] Jul, Fibromyalgia M79.7 [place] [id number] [facility] [id number] [address] [place] [id number] Jul, Generalized anxiety disorder F41.1 [place] [address] [place] [id number] [address] [place] [phone] May, [place] [address] [place] [id number] [address] [place] [id number] May, Hypothyroid E03.9 [place] [address] [place] [id number] [address] [place] [id number] May, Chronic kidney disease, stag e 4 (severe) N18.4 ; Hypothyroid E03.9 ; Restless leg G25.81 ; Fibromyalgia M79.7 ; Essential (primary) hypertension I10 ; Vitamin D deficiency E55.9 ; Dyspepsia R10.13 ; Acute non-recurrent maxillary sinusitis J01.00 ; Anemia in chronic kidney disease D63.1 ; Chronic kidney disease, unspecified N18.9 and Coronary artery disease involving chenega coronary artery of chenega heart, angina presence unspecified I25.10 [place] [address] [facility] [id number] [address] [place] [phone] May, Vitamin D deficiency, unspec ified E55.9 [place] [address] [place] [id number] [address] [place] [phone] May, Generalized anxiety disorder F41.1 and Major depressive disorder, recurrent episode with anxious distress F33.9 [facility] [address] [facility] [id number] [address] [place] [phone] Apr, Pain in right knee M25.561 a nd Pain in left knee M25.562 [facility] [address] [facility] [id number] [address] [place] [phone] Apr, [facility] [address] [facility] [id number] [address] [place] [phone] Apr, [facility] [address] [facility] [id number] [address] [place] [phone] Apr, [facility] [address] [facility] [id number] [address] [place] [phone] Mar, Generalized anxiety disorder F41.1 and Major depressive disorder, recurrent episode with anxious distress F33.9 [facility] [address] [facility] [id number] [address] [place] [phone] Mar, Generalized anxiety disorder F41.1 and Major depressive disorder, recurrent episode with anxious distress F33.9 [facility] [address] [facility] [id number] [address] [place] [id number] Mar, [facility] [address] [facility] [id number] [address] [place] [phone] Mar, [facility] [address] [facility] [id number] [address] [place] [id number] Mar, [facility] [address] [facility] [id number] [address] [place] [address] Mar, Asthma J45.909 and Fibromyal elvira M79.7 [facility] [address] [facility] [id number] [address] [place] [phone] Mar, Chronic kidney disease, stag e 4 (severe) N18.4 ; Vitamin D deficiency E55.9 and Essential (primary) hypertension I10 [facility] [address] [address] Feb, [facility] [address] [address] Feb, Dysuria R30.0 ; Mixed stress and urge urinary incontinence N39.46 ; Fibromyalgia M79.7 and Chronic kidney disease, stage IV (severe) N18.4 [place] [address] [address] Feb, Chronic kidney disease, stag e 4 (severe) N18.4 [place] [address] [address] Feb, Chronic kidney disease, stag e 4 (severe) N18.4 [place] [address] [address] Feb, [place] [address] [address] Feb, Vitamin D deficiency, unspec ified E55.9 [place] [address] [address] Jan, [facility] [address] [address] Jan, [place] [address] [address] Dec, [facility] [address] [address] Dec, Chronic kidney disease, stag e 4 (severe) N18.4 [facility] [address] [address] Dec, Dysthymic disorder F34.1 and Generalized anxiety disorder F41.1 [place] [address] [address] Dec, [facility] [address] [place] [id number] [address] [place] [phone] Dec, [facility] [address] [address] Dec, Dysthymic disorder F34.1 and Generalized anxiety disorder F41.1 [facility] [address] [address] Dec, Dysuria R30.0 ; Chronic kidn ey disease, stage 4 (severe) N18.4 ; Hypertension I10 ; Dyspepsia R10.13 ; Yeast dermatitis B37.2 ; Palpitations R00.2 ; Hypothyroid E03.9 ; Functional diarrhea K59.1 and Other seasonal allergic rhinitis J30.2 [facility] [address] [place] [id number] [place] [phone] Dec, [facility] [address] [address] Nov, Dysuria R30.0 and Stress inc ontinence N39.3 [facility] [id number] [place] [address] Nov, [place] [address] [address] Nov, [place] [address] [address] Nov, Osteoarthritis of knees, jose ateral M17.0 [facility] [address] [place] [id number] [address] [place] [phone] Nov, Dysthymic disorder F34.1 and Generalized anxiety disorder F41.1 [place] [address] [address] Nov, [place] [address] [place] [id number] [address] [place] [phone] Nov, [facility] [address] [address] Nov, Urgency of urination R39.15 [place] [address] [address] Nov, [place] [address] [address] Nov, Chronic kidney disease, stag e 4 (severe) N18.4 [place] [address] [address] Oct, Hypertension I10 ; Coronary artery disease involving chenega coronary artery of chenega heart, angina presence unspecified I25.10 ; Palpitations R00.2 ; Hypothyroid E03.9 ; Right foot pain M79.671 ; Functional diarrhea K59.1 and Other seasonal allergic rhinitis J30.2 [place] [address] [address] Oct, Dysthymic disorder F34.1 and Generalized anxiety disorder F41.1 [place] [address] [address] Sep, [place] [address] [address] Sep, [place] [address] [address] Sep, [place] [address] [address] Sep, [facility] [address] [address] Sep, [place] [address] [address] Sep, Dysthymic disorder F34.1 and Generalized anxiety disorder F41.1 [place] [address] [place] [id number] [place] [address] Sep, Asthma with acute exacerbati on in adult J45.901 ; Dysuria R30.0 ; Chronic kidney disease, stage 4 (severe) N18.4 and History of anemia Z86.2 [place] [id number] [facility] [id number] [address] [place] [address] Sep, Generalized anxiety disorder F41.1 and Dysthymic disorder F34.1 [place] [address] [facility] [id number] [address] [place] [address] August, Screening breast examination Z12.39 and Acute recurrent maxillary sinusitis J01.01 [place] [address] [facility] [id number] [address] [place] [phone] August, Osteoarthritis of knees, jose ateral M17.0 [place] [address] [facility] [id number] [address] [place] [address] August, Chronic kidney disease, stag e 4 (severe) N18.4 ; Acute non- recurrent maxillary sinusitis J01.00 ; Urinary problem R39.89 ; Bowel habit changes R19.4 ; Functional diarrhea K59.1 and History of colon polyps Z86.010 [place] [address] [place] [id number] [address] [place] [address] Jul, Dysthymic disorder F34.1 and Generalized anxiety disorder F41.1 [place] [address] [facility] [id number] [address] [place] [address] Jul, [place] [address] [facility] [id number] [address] [place] [phone] Jul, Dysthymic disorder F34.1 ; G eneralized anxiety disorder F41.1 and care home use of drug Z79.899 [place] [address] [facility] [id number] [address] [place] [phone] Jul, [place] [address] [place] [id number] [address] [place] [phone] 16 Jun, 2015 [place] [address] [place] [id number] [address] [place] [phone] Jun, [place] [address] [place] [address] May, [facility] [address] [address] May, Dysthymic disorder F34.1 and Generalized anxiety disorder F41.1 [place] [address] [place] [id number] [address] [place] [address] Apr, Kidney disease N28.9 [place] [address] [address] Apr, Generalized anxiety disorder F41.1 and Dysthymic disorder F34.1 [place] [address] [address] Apr, Chronic kidney disease, stag e 4 (severe) N18.4 [place] [address] [address] Apr, Generalized anxiety disorder F41.1 ; Major depression, recurrent F33.9 and Sleep disturbance G47.9 [place] [address] [address] Mar, Generalized anxiety disorder F41.1 and Dysthymic disorder F34.1 [place] [address] [address] Mar, Generalized anxiety disorder F41.1 ; Dysthymic disorder F34.1 and Insomnia G47.00 [place] [address] [place] [address] Mar, [place] [address] [place] [id number] [address] [place] [address] Mar, [place] [address] [address] Mar, Osteoarthritis of knees, jose ateral M17.0 [place] [address] [place] [id number] [address] [place] [address] Mar, Hypertension I10 ; Hypothyro id E03.9 ; Dysthymic disorder F34.1 ; Chronic kidney disease, stage 4 (severe) N18.4 and Nausea & vomiting R11.2 [place] [address] [address] Mar, Generalized anxiety disorder F41.1 ; Dysthymic disorder F34.1 and Insomnia G47.00 [place] [address] [address] Mar, Dehydration E86.0 ; Chronic kidney disease, stage 4 (severe) N18.4 and Nausea & vomiting R11.2 [facility] [address] [address] Mar, Gastroenteritis K52.9 [place] [address] [address] Mar, [place] [address] [address] Mar, [place] [address] [address] Feb, Dysthymic disorder F34.1 and Generalized anxiety disorder F41.1 [place] [address] [address] Jan, UTI (urinary tract infection ) N39.0 ; Asthma J45.909 ; Coronary artery disease involving chenega coronary artery of chenega heart, angina presence unspecified I25.10 ; Hypertension I10 ; Hypothyroid E03.9 ; Vitamin D deficiency E55.9 ; Insomnia G47.00 ; Palpitations R00.2 ; Depressed F32.9 ; Restless leg G25.81 and Anxiety F41.9 [place] [address] [address] Jan, Dysthymic disorder F34.1 and Generalized anxiety disorder F41.1 [place] [address] [address] Jan, [place] [address] [address] Dec, [place] [address] [address] Dec, Alkalosis 276.3 ; Chronic ki dney disease, Stage IV (severe) 585.4 ; Hyperpotassemia 276.7 ; Secondary hyperparathyroidism, renal 588.81 ; Proteinuria 791.0 ; Unspecified vitamin D deficiency 268.9 ; Anemia in chronic kidney disease 285.21 ; Other and unspecified hyperlipidemia 272.4 ; Hypertension, essential, benign 401.1 and Chronic kidney disease (CKD), stage III (moderate) 585.3 [place] [address] [address] Dec, [place] [address] [address] Dec, Depressive disorder, not els ewhere classified 311 and Generalized anxiety disorder 300.02 [place] [address] [address] Dec, [place] [address] [address] Dec, [place] [address] [address] Nov, Depressive disorder, not els ewhere classified 311 and Generalized anxiety disorder 300.02 [place] [address] [address] Nov, Arthritis of both knees 716. [address] [address] 07 Nov, 2014 PAF (paroxysmal atrial fibri llation) 427.31 ; CAD (coronary artery disease) 414.00 ; Chest pain 786.50 and Chronic kidney disease (CKD) stage G4/A1, severely decreased glomerular filtration rate (GFR) between 15-29 mL/min/1.73 square meter and albuminuria creatinine ratio less than 30 mg/g 585.4 [facility] [address] [place] [id number] [address] [place] [address] Oct, Coronary atherosclerosis of unspecified type of vessel, chenega or graft 414.00 ; Chronic kidney disease, Stage IV (severe) 585.4 ; Hypertension 401.9 and Edema 782.3 [facility] [address] [place] [id number] [place] [address] Oct, Depressive disorder, not els ewhere classified 311 and Generalized anxiety disorder 300.02 [facility] [address] [address] Oct, Depressive disorder, not els ewhere classified 311 and Generalized anxiety disorder 300.02 [place] [address] [address] Oct, [place] [address] [address] Oct, [facility] [address] [address] Sep, [place] [address] [address] Sep, Chronic kidney disease, Stag e IV (severe) 585.4 [place] [address] [address] Sep, [facility] [address] [address] Sep, Coronary atherosclerosis of unspecified type of vessel, chenega or graft 414.00 ; Hypertension 401.9 ; Edema 782.3 and Hypothyroidism 244.[address] [address] Sep, Coronary atherosclerosis of unspecified type of vessel, chenega or graft 414.00 ; Hypertension 401.9 ; Fibromyalgia 729.1 ; Edema 782.3 ; Hypothyroidism 244.9 and Anemia 285.[address] [place] [address] 04 Sep, 2014 Anxiety disorder, unspecifie d 300.00 and Depressive disorder, not elsewhere classified 311 [facility] [address] [id number] [address] [place] [address] Sep, [facility] [address] [facility] [id number] [address] [place] [address] August, Generalized anxiety disorder 300.02 [facility] [address] [id number] [address] [place] [id number] August, Closed fracture of lateral m alleolus 824.2 [facility] [address] [id number] [address] [place] [id number] Jul, [facility] [address] [facility] [id number] [address] [place] [address] Jul, [facility] [address] [facility] [id number] [address] [place] [address] Jun, [facility] [address] [id number] [address] [place] [id number] Jun, [facility] [address] [facility] [id number] [address] [place] [address] Jun, [facility] [address] [facility] [id number] [address] [place] [phone] Jun, [facility] [address] [facility] [id number] [address] [place] [id number] Jun, [facility] [address] [facility] [id number] [address] [place] [id number] Jun, [facility] [address] [facility] [id number] [address] [place] [id number] May, [facility] [address] [id number] [address] [place] [id number] May, [facility] [address] [facility] [id number] [address] [place] [id number] May, [facility] [address] [id number] [address] [place] [address], [place] [id number] 18 May, 2014 [facility] [address] [id number] [address] [place] [address], [place] [id number] 16 May, 2014 [facility] [address] [id number] [address] [place] [address], [place] [id number] 16 May, 2014 [facility] [address] [id number] [address] [place] [address], [place] [id number] 13 May, 2014 [facility] [address] [id number] [address] [place] [address], [place] [address] 13 May, 2014 [facility] [address] [id number] [address] [place] [address], [place] [id number] 10 May, 2014 [facility] [address] [id number] [address] [place] [address], [place] [id number] 10 May, 2014 [facility] [address] [id number] [address] [place] [address], [place] [address] Apr, [facility] [address] [id number] [address] [place] [address], [place] [id number] Apr, [facility] [address] [id number] [address] [place] [address], [place] [address] Mar, [facility] [address] [id number] [address] [place] [address], [place] [address] Mar, [facility] [address] [id number] [address] [place] [address], [place] [address] Mar, [facility] [address] [id number] [address] [place] [address], [place] [id number] Mar, [facility] [address] [id number] [address] [place] [address], [place] [address] Mar, [facility] [address] [id number] [address] [place] [address], [place] [address] Mar, [facility] [address] [id number] [address] [place] [address], [place] [address] Mar, [facility] [address] [id number] [address] [place] [address], [place] [address] Feb, [facility] [address] [id number] [address] [place] [address], [place] [id number] Feb, [facility] [address] [id number] [address] [place] [address], [place] [address] Feb, [facility] [address] [id number] [address] [place] [address], [place] [address] Jan, [facility] [address] [id number] [address] [place] [address], [place] [address] Jan, [facility] [address] [id number] [address] [place] [address], [place] [address] Jan, [facility] [address] [id number] [address] [place] [address], [place] [address] Jan, [facility] [address] [id number] [address] [place] [address], [place] [address] Jan, [facility] [address] [id number] [address] [place] [address], [place] [address] Jan, [facility] [address] [id number] [address] [place] [address], [place] [address] Jan, [facility] [address] [id number] [address] [place] [address], [place] [address] Jan, [facility] [address] [id number] [address] [place] [address], [place] [address] Jan, [facility] [address] [id number] [address] [place] [address], [place] [address] Jan, [facility] [address] [id number] [address] [place] [address], [place] [address] Nov, [facility] [address] [id number] [address] [place] [address], [place] [address] Nov, [facility] [address] [id number] [address] [place] [address], [place] [address] Nov, [facility] [address] [id number] [address] [place] [address], [place] [address] Oct, [facility] [address] [id number] [address] [place] [address], [place] [address] Oct, [facility] [address] [id number] [address] [place] [address], [place] [address] Oct, [facility] [address] [id number] [address] [place] [address], [place] [address] Oct, [facility] [address] [id number] [address] [place] [address], [place] [address] Oct, [facility] [address] [id number] [address] [place] [address], [place] [address] Oct, [facility] [address] [id number] [address] [place] [address], [place] [address] Oct, [facility] [address] [id number] [address] [place] [address], [place] [address] Oct, [facility] [address] [id number] [address] [place] [address], [place] [address] Oct, [facility] [address] [id number] [address] [place] [address], [place] [address] Sep, [facility] [address] [id number] [address] [place] [address], [place] [address] Sep, [facility] [address] [id number] [address] [place] [address], [place] [address] Sep, [facility] [address] [id number] [address] [place] [address], [place] [address] Sep, [facility] [address] [id number] [address] [place] [address], [place] [address] Sep, [facility] [address] [id number] [address] [place] [address], [place] [address] Sep, [facility] [address] [id number] [address] [place] [address], [place] [address] Sep, [facility] [address] [id number] [address] [place] [address], [place] [address] Sep, [facility] [address] [id number] [address] [place] [address], [place] [address] Sep, [facility] [address] [id number] [address] [place] [address], [place] [address] August, [facility] [address] [id number] [address] [place] [address], [place] [address] August, [facility] [address] [id number] [address] [place] [address], [place] [address] August, [facility] [address] [id number] [address] [place] [address], [place] [address] August, [facility] [address] [id number] [address] [place] [address], [place] [address] August, [facility] [address] [id number] [address] [place] [address], [place] [address] August, [facility] [address] [id number] [address] [place] [address], [place] [address] Jul, [facility] [address] [id number] [address] [place] [address], [place] [address] Jul, [facility] [address] [id number] [address] [place] [address], [place] [address] Jul, [facility] [address] [id number] [address] [place] [address], [place] [address] Jul, [facility] [address] [id number] [address] [place] [address], [place] [address] Jul, [facility] [address] [id number] [address] [place] [address], [place] [address] Jul, [facility] [address] [id number] [address] [place] [address], [place] [address] 10 Jun, 2013 [facility] [address] [id number] [address] [place] [address], [place] [address] Jun, [facility] [address] [id number] [address] [place] [address], [place] [address] May, [facility] [address] [id number] [address] [place] [address], [place] [address] May, [facility] [address] [id number] [address] [place] [address], [place] [address] May, [facility] [address] [id number] [address] [place] [address], [place] [address] May, [facility] [address] [id number] [address] [place] [address], [place] [address] Apr, [facility] [address] [id number] [address] [place] [address], [place] [address] Apr, [facility] [address] [id number] [address] [place] [address], [place] [address] Mar, [facility] [address] [id number] [address] [place] [address], [place] [address] Mar, [facility] [address] [id number] [address] [place] [address], [place] [address] 17 Mar, 2013 [facility] [address] [id number] [address] [place] [address], [place] [address] Mar, [facility] [address] [id number] [address] [place] [address], [place] [address] Mar, [facility] [address] [id number] [address] [place] [address], [place] [address] Mar, [facility] [address] [id number] [address] [place] [address], [place] [address] Feb, [facility] [address] [id number] [address] [place] [address], [place] [address] Feb, [facility] [address] [id number] [address] [place] [address], [place] [address] Feb, [facility] [address] [id number] [address] [place] [address], [place] [address] Feb, [facility] [address] [id number] [address] [place] [address], [place] [address] Feb, [facility] [address] [id number] [address] [place] [address] Feb, [facility] [address] [id number] [address] [place] [address], [place] [address] Jan, [facility] [address] [id number] [address] [place] [address], [place] [address] Jan, [facility] [address] [id number] [address] [place] [address], [place] [address] Jan, [facility] [address] [id number] [address] [place] [address], [place] [address] Jan, [facility] [address] [id number] [address] [place] [address], [place] [address] Jan, [facility] [address] [id number] [address] [place] [address], [place] [address] Jan, [facility] [address] [id number] [address] [place] [address], [place] [address] Dec, [facility] [address] [id number] [address] [place] [address] Dec, [facility] [address] [id number] [address] [place] [address], [place] [address] Nov, [facility] [address] [id number] [address] [place] [address], [place] [address] Nov, [facility] [address] [id number] [address] [place] [address], [place] [address] Oct, [facility] [address] [id number] [address] [place] [address], [place] [address] Oct, [facility] [address] [id number] [address] [place] [address], [place] [address] Oct, [facility] [address] [id number] [address] [place] [address], [place] [address] Oct, [facility] [address] [id number] [address] [place] [address], [place] [address] Oct, [facility] [address] [id number] [address] [place] [address], [place] [address] Oct, [facility] [address] [id number] [address] [place] [address], [place] [address] Sep, [facility] [address] [id number] [address] [place] [address], [place] [address] Sep, [facility] [address] [id number] [address] [place] [address], [place] [address] Sep, [facility] [address] [id number] [address] [place] [address], [place] [address] Sep, [facility] [address] [id number] [address] [place] [address], [place] [address] August, [facility] [address] [id number] [address] [place] [address], [place] [address] August, [facility] [address] [id number] [address] [place] [address], [place] [address] August, [facility] [address] [id number] [address] [place] [address], [place] [address] August, [facility] [address] [id number] [address] [place] [address], [place] [address] August, [facility] [address] [id number] [address] [place] [address], [place] [address] Jul, [facility] [address] [id number] [address] [place] [address], [place] [address] Jul, [facility] [address] [id number] [address] [place] [address], [place] [address] Jul, [facility] [address] [id number] [address] [place] [address], [place] [address] Jul, [facility] [address] [id number] [address] [place] [address], [place] [address] Jul, [facility] [address] [id number] [address] [place] [address], [place] [address] Jul, [facility] [address] [id number] [address] [place] [address], [place] [address] Jul, [facility] [address] [id number] [address] [place] [address], [place] [address] Jul, [facility] [address] [id number] [address] [place] [address], [place] [address] Jul, [facility] [address] [id number] [address] [place] [address], [place] [address] Jul, [facility] [address] [id number] [id number] Jun, [facility] [address] [id number] [address] [place] [address], [place] [address] Jun, [facility] [address] [id number] [address] [place] [address], [place] [address] Jun, [facility] [address] [id number] [address] [place] [address], [place] [address] Jun, [facility] [address] [id number] [address] [place] [address], [place] [address] Jun, [facility] [address] [id number] [address] [place] [address], [place] [address] May, [facility] [address] [id number] [address] [place] [address], [place] [address] May, [facility] [address] [id number] [address] [place] [address] May, [facility] [address] [id number] [address] [place] [address], [place] [address] Apr, [facility] [address] [id number] [address] [place] [address], [place] [address] Apr, [facility] [address] [id number] [address] [place] [address], [place] [address] Apr, [facility] [address] [id number] [address] [place] [address], [place] [address] Apr, [facility] [address] [id number] [address] [place] [address], [place] [address] Apr, [facility] [address] [id number] [address] [place] [address], [place] [address] Apr, [facility] [address] [id number] [address] [place] [address], [place] [address] Mar, [facility] [address] [id number] [address] [place] [address], [place] [address] Mar, [facility] [address] [id number] [address] [place] [address], [place] [address] Mar, [facility] [address] [id number] [address] [place] [address], [place] [address] Mar, [facility] [address] [id number] [address] [place] [address], [place] [address] Feb, [facility] [address] [id number] [address] [place] [address], [place] [address] Feb, [facility] [address] [id number] [address] [place] [address], [place] [address] Feb, [facility] [address] [id number] [address] [place] [address], [place] [address] Feb, [facility] [address] [id number] [address] [place] [address], [place] [address] Feb, [facility] [address] [id number] [address] [place] [address], [place] [address] Feb, [facility] [address] [id number] [address] [place] [address], [place] [address] Feb, [facility] [address] [id number] [address] [place] [address], [place] [address] Feb, [facility] [address] [id number] [address] [place] [address], [place] [address] Feb, [facility] [address] [id number] [address] [place] [address], [place] [address] Feb, [facility] [address] [id number] [address] [place] [address], [place] [address] Feb, [facility] [address] [id number] [address] [place] [address], [place] [address] Feb, [facility] [address] [id number] [address] [place] [address], [place] [address] Feb, [facility] [address] [id number] [address] [place] [address], [place] [address] Feb, [facility] [address] [id number] [address] [place] [address], [place] [address] Feb, [facility] [address] [id number] [address] [place] [address], [place] [address] Feb, [facility] [address] [id number] [address] [place] [address], [place] [address] Jan, [facility] [address] [id number] [address] [place] [address], [place] [address] Jan, [facility] [address] [id number] [address] [place] [address], [place] [address] Jan, [facility] [address] [id number] [address] [place] [address], [place] [address] Jan, [facility] [address] [id number] [address] [place] [address], [place] [address] Jan, [facility] [address] [id number] [address] [place] [address], [place] [address] Jan, [facility] [address] [id number] [address] [place] [address], [place] [address] Jan, [facility] [address] [id number] [address] [place] [address], [place] [address] 16 Jan, 2012 [facility] [address] [id number] [address] [place] [address], [place] [address] 16 Jan, 2012 [facility] [address] [id number] [address] [place] [address], [place] [address] 15 Jan, 2012 [facility] [address] [id number] [address] [place] [address], [place] [address] 15 Jan, 2012 [facility] [address] [id number] [address] [place] [address], [place] [address] Jan, [facility] [address] [id number] [address] [place] [address] [address] 26 Sep2011 [facility] [address] [id number] [address] [place] [address], [place] [address] 26 Sep2011 [facility] [address] [id number] [address] [place] [address], [place] [address] 24 Sep2011 [facility] [address] [id number] [address] [place] [address], [place] [address] 23 Sep, 2011 [facility] [address] [id number] [address] [place] [address] 22 Sep, 2011 [facility] [address] [id number] [address] [place] [address], [place] [address] 21 Sep2011 [facility] [address] [id number] [address] [place] [address], [place] [address] 20 Sep, 2011 [facility] [address] [id number] [address] [place] [address], [place] [address] 20 Dec, 2011 [facility] [address] [id number] [address] [place] [address], [place] [address] 07 Dec, 2011 [facility] [address] [id number] [address] [place] [address], [place] [address] 06 Sep, 2011 [facility] [address] [id number] [address] [place] [address], [place] [address] 06 Dec, 2011 [facility] [address] [id number] [address] [place] [address], [place] [address] 05 Dec, 2011 [facility] [address] [id number] [address] [place] [address], [place] [address] 23 Nov, 2011 [facility] [address] [id number] [address] [place] [address], [place] [address] 17 Nov, 2011 [facility] [address] [id number] [address] [place] [address], [place] [address] Nov, [facility] [address] [id number] [address] [place] [address], [place] [address] Nov, [facility] [address] [id number] [address] [place] [address], [place] [address] Nov, [facility] [address] [id number] [address] [place] [address], [place] [address] Nov, [facility] [address] [id number] [address] [place] [address], [place] [address] Nov, [facility] [address] [id number] [address] [place] [address], [place] [address] Nov, [facility] [address] [id number] [address] [place] [address], [place] [address] Oct, [facility] [address] [id number] [address] [place] [address], [place] [address] Oct, [facility] [address] [id number] [address] [place] [address], [place] [address] Oct, [facility] [address] [id number] [address] [place] [address], [place] [address] Oct, [facility] [address] [id number] [address] [place] [address], [place] [address] Oct, [facility] [address] [id number] [address] [place] [address], [place] [address] Oct, [facility] [address] [id number] [address] [place] [address], [place] [address] Oct, [facility] [address] [id number] [address] [place] [address], [place] [address] Sep, [facility] [address] [id number] [address] [place] [address], [place] [address] Sep, [facility] [address] [id number] [address] [place] [address], [place] [address] August, [facility] [address] [id number] [address] [place] [address], [place] [address] August, [facility] [address] [id number] [address] [place] [address], [place] [address] August, [facility] [address] [id number] [address] [place] [address], [place] [address] August, [facility] [address] [id number] [address] [place] [address], [place] [address] Jul, [facility] [address] [id number] [address] [place] [address], [place] [address] Jul, [facility] [address] [id number] [address] [place] [address], [place] [address] Jul, [facility] [address] [id number] [address] [place] [address], [place] [address] Jul, [facility] [address] [id number] [address] [place] [address], [place] [address] Jul, [facility] [address] [id number] [address] [place] [address], [place] [address] Jul, [facility] [address] [id number] [address] [place] [address], [place] [address] Jul, [facility] [address] [id number] [address] [place] [address], [place] [address] Jul, [facility] [address] [id number] [address] [place] [address], [place] [address] Jul, [facility] [address] [id number] [address] [place] [address], [place] [address] 23 Jun, 2011 [facility] [address] [id number] [address] [place] [address], [place] [address] 19 Jun, 2011 [facility] [address] [id number] [address] [place] [address], [place] [address] 15 Jun, 2011 [facility] [address] [id number] [address] [place] [address], [place] [address] 14 Jun, 2011 [facility] [address] [id number] [address] [place] [address], [place] [address] Jun, [facility] [address] [id number] [address] [place] [address], [place] [address] Jun, [facility] [address] [id number] [address] [place] [address], [place] [address] Jun, [facility] [address] [id number] [address] [place] [address], [place] [address] 25 May, 2011 [facility] [address] [id number] [address] [place] [address], [place] [address] 24 May, 2011 [facility] [address] [id number] [address] [place] [address], [place] [address] 16 May, 2011 [facility] [address] [id number] [address] [place] [address], [place] [address] May, [facility] [address] [id number] [address] [place] [address], [place] [address] May, [facility] [address] [id number] [address] [place] [address], [place] [address] Apr, [facility] [address] [id number] [address] [place] [address], [place] [address] 19 Apr, 2011 [facility] [address] [id number] [address] [place] [address], [place] [address] 13 Apr, 2011 [facility] [address] [id number] [address] [place] [address], [place] [address] Apr, [facility] [address] [id number] [address] [place] [address], [place] [address] 05 Apr, 2011 [facility] [address] [id number] [address] [place] [address], [place] [address] Mar, [facility] [address] [id number] [address] [place] [address], [place] [address] Mar, [facility] [address] [id number] [address] [place] [address], [place] [address] Mar, [facility] [address] [id number] [address] [place] [address], [place] [address] Mar, [facility] [address] [id number] [address] [place] [address], [place] [address] Mar, [facility] [address] [id number] [address] [place] [address], [place] [address] Mar, [facility] [address] [id number] [address] [place] [address], [place] [address] Mar, [facility] [address] [id number] [address] [place] [address], [place] [id number] Feb, [facility] [address] [id number] [address] [place] [address], [place] [id number] Feb, [facility] [address] [id number] [address] [place] [address], [place] [id number] Feb, [facility] [address] [id number] [address] [place] [address], [place] [id number] Feb, [facility] [address] [id number] [address] [place] [address], [place] [id number] Jan, [facility] [address] [id number] [address] [place] [phone] Jan, [facility] [address] [id number] [address] [place] [phone] Jan, [facility] [address] [id number] [address] [place] [phone] Jan, [facility] [address] [id number] [address] [place] [id number] Nov, [facility] [address] [id number] [address] [place] [phone] Mar, [facility] [address] [id number] [address] [place] [id number] Mar, [facility] [address] [id number] [address] [place] [id number] Mar, [facility] [address] [id number] [address] [place] [id number] Mar, [facility] [address] [id number] [address] [place] [phone] Mar, [facility] [address] [id number] [address] [place] [phone] Mar, [facility] [address] [id number] [address] [place] [id number] Feb, [facility] [address] [id number] [address] [place] [id number] Feb, [facility] [address] [id number] [address] [place] [phone] Jan, [facility] [address] [id number] [address] [place] [phone] Jan, [facility] [address] [id number] [address] [place] [id number] Jan, IMMUNIZATIONS No Known Immunizations SOCIAL HISTORY [...] History CPAP Noncompliance_ Dr. Madden advises a Study [employer] driving. Medical History Bacterial meningitis 12/2016 Medical [...] 09-2015 & 2007 Surgical History Bladder surgery [facility] 03/2016 Surgical History Neurotransmitter placed 10/2017 Surgical History retninal repair 12/31/2017 Surgical History cataract surgery 2018 Surgical History cataract surgery 2019 Surgical History SCS trial x7 days 2019 Hospitalization History Surgeries Only Hospitalization History bacterial meningitis December 2016 Hospitalization History [facility] psych for SI 1988 Hospitalization History [facility]-Altered mental status 05/2017 Hospitalization History sepsis, UTI, headache 08/03/2018-
--- OUTSIDE RECORDS SUMMARY | 2019-08-01 10:37 | XMS REPORT ---
Author Author Lola Tyson Doctor Organization [facility] Address Unknown Phone Unavailable Care Team Providers Care Dye Worker Name Role Phone Migration, Doctor Unavailable Unavailable PROBLEMS Type Condition ICD9-CM Code [id number] Code Onset Dates Condition S tatus SNOMED Code Problem Restless leg G25.81 Active 4246963 8 Problem Insomnia G47.00 Active 548602091 Problem Hypothyroid E03.9 Active 13116861 Problem Palpitations R00.2 Active 3507118 2 Problem Asthma J45.909 Active 437863016 Problem Chronic kidney disease, stage 4 (severe) N18.4 Active 189892327 Problem Depressed F32.9 Active 55466164 Problem Primary osteoarthritis of left knee M17.12 Active 316318432 Problem Generalized anxiety disorder F41.1 A ctive 25373737 Problem Anemia in chronic kidney disease D63.1 Active 952511205624604 Problem Low back pain M54.5 Active 992110 009 Problem Coronary artery disease invo lving [place] coronary artery of [place] heart, angina presence unspecified I25.10 Active 0017003139920 Problem Dysthymic disorder F34.1 Active 7 0310024 Problem Other seasonal allergic rhinitis J30.2 Active 290525534 Problem History of anemia Z86.2 Active 27 0950660 Problem Fibromyalgia M79.7 Active 5428384 05 Problem Hypokalemia E87.6 Active 07662444 Problem Vitamin D deficiency E55.9 Active 04389735 Problem Mixed stress and urge urinary incontinence N39.46 Active 551121115 Problem Chronic kidney disease, unspecified N18.9 Active 407473941 Problem Abnormal chest CT R93.8 Active 44 7381921 Problem Essential (primary) hypertension I10 Active 29296183 Problem Long-term use of high-risk medication Z79.899 Active 925872878 Problem Degenerative tear of medial meniscus of left knee M23.204 Active 436804248 Problem Mood disorder F39 Active 021537 05 Problem Stage 3 chronic kidney disease N18.3 Active 330544750 Problem Perimenopausal vasomotor symptoms N95.1 Active 144832346 Problem History of colon polyps Z86.010 Active 786122083 Problem Other chronic pain G89.29 Active 8 9591032 Problem Functional diarrhea K59.1 Active 68451434 Problem Asthma with acute exacerbation in adult J45.901 Active 803939782 Problem Body mass index (BMI) of 40.0-44.9 in adult Z68.41 Active 326535338 Problem Seasonal allergic rhinitis due to pollen J30.1 Active 42139348 Problem Restless leg syndrome G25.81 Active 68976360 Problem Chronic pain syndrome G89.4 Active 825782252 ALLERGIES No Information ENCOUNTERS Encounter Location Date Diagnosis [facility] [address] [facility] [id number] [address] [place] [phone] Dec, [facility] [address] [facility] [id number] [address] [place] [phone] Nov, [facility] [address] [facility] [id number] [address] [place] [phone] Oct, [facility] [address] [facility] [id number] [address] [place] [phone] Oct, Cellulitis of left lower ext remity L03.116 and Morbid obesity E66.01 [facility] [address] [facility] [id number] [address] [place] [phone] Oct, [facility] [address] [facility] [id number] [address] [place] [phone] Oct, [facility] [address] [facility] [id number] [address] [place] [phone] Oct, Generalized anxiety disorder F41.1 and Major depressive disorder, recurrent episode with anxious distress F33.9 [facility] [address] [facility] [id number] [address] [place] [phone] Oct, [facility] [address] [facility] [id number] [address] [place] [phone] Oct, Chronic pain syndrome G89.4 [facility] [address] [facility] [id number] [address] [place] [phone] Oct, Chronic pain syndrome G89.4 [facility] [address] [facility] [id number] [address] [place] [phone] Oct, UTI symptoms R39.9 ; Acute c ystitis without hematuria N30.00 and Morbid obesity E66.01 [facility] [address] [facility] [id number] [address] [place] [phone] Oct, [facility] [address] [facility] [id number] [address] [place] [phone] Oct, Chronic pain syndrome G89.4 [facility] [address] [facility] [id number] [address] [place] [phone] Sep, [facility] [address] [facility] [id number] [address] [place] [phone] Sep, Generalized anxiety disorder F41.1 and Major depressive disorder, recurrent episode with anxious distress F33.9 [facility] [address] [facility] [id number] [address] [place] [phone] Sep, Chronic kidney disease, stag e 4 (severe) N18.4 [facility] [address] [facility] [id number] [address] [place] [phone] Sep, Fibromyalgia M79.7 and Chron ic pain syndrome G89.4 [facility] [address] [facility] [id number] [address] [place] [phone] Sep, [address] [phone] Sep, Chronic pain syndrome G89.4 [facility] [address] [facility] [id number] [address] [place] [phone] Sep, [facility] [address] [facility] [id number] [address] [place] [phone] Sep, Chronic pain syndrome G89.4 ; Fibromyalgia M79.7 and Morbid obesity E66.01 [facility] [address] [facility] [id number] [address] [place] [phone] August, Generalized anxiety disorder F41.1 and Major depressive disorder, recurrent episode with anxious distress F33.9 [facility] [address] [id number] [address] [place] [phone] August, Fibromyalgia M79.7 [facility] [address] [id number] [address] [place] [phone] August, Restless leg syndrome G25.81 ; Vitamin D deficiency E55.9 ; Urinary tract infection without hematuria, site unspecified N39.0 ; Pain in right shoulder M25.511 ; Other chronic pain G89.29 ; Biceps tendinitis on right M75.21 and Morbid obesity E66.01 [facility] [address] [id number] [address] [place] [phone] Jul, Urinary tract infection with out hematuria, site unspecified N39.0 and Morbid obesity E66.01 [facility] [address] [id number] [address] [place] [phone] Jul, [facility] [address] [id number] [address] [place] [phone] Jul, [facility] [address] [id number] [address] [place] [phone] Jul, Fibromyalgia M79.7 [facility] [address] [id number] [address] [place] [phone] Jul, Acute pain of right shoulder M25.511 [facility] [address] [id number] [address] [place] [phone] Jul, Acute pain of right shoulder M25.511 and Morbid obesity E66.01 [facility] [address] [id number] [address] [place] [phone] Jun, [facility] [address] [id number] [address] [place] [phone] 14 Jun, 2018 Generalized anxiety disorder F41.1 and Major depressive disorder, recurrent episode with anxious distress F33.9 [facility] [address] [id number] [address] [place] [phone] 11 Jun, 2018 [facility] [id number] [place] [phone] 06 Jun, 2018 Fibromyalgia M79.7 [facility] [address] [place] [id number] [address] [place] [phone] 04 Jun, 2018 Acute pain of right shoulder M25.511 ; Acute pain of right hip M25.551 and Morbid obesity E66.01 [place] [address] [place] [id number] [address] [place] [phone] 11 May, 2018 Burning with urination R30.0 ; Vaginal discharge N89.8 ; Chronic kidney disease, stage 4 (severe) N18.4 ; Body mass index (BMI) of 40.0-44.9 in adult Z68.41 and Morbid obesity E66.01 [place] [address] [phone] 07 May, 2018 Fibromyalgia M79.7 [place] [address] [phone] 06 May, 2018 Generalized anxiety disorder F41.1 and Major depressive disorder, recurrent episode with anxious distress F33.9 [place] [address] [place] [phone] 24 Apr, 2018 [place] [address] [place] [id number] [address] [place] [phone] Apr, Fibromyalgia M79.7 [facility] [address] [place] [id number] [address] [place] [phone] 14 Mar, 2018 Acute UTI N39.0 and Dysuria R30.0 [place] [address] [phone] 10 Mar, 2018 Fibromyalgia M79.7 [facility] [address] [place] [id number] [address] [place] [id number] 15 Feb, 2018 [place] [address] [place] [id number] [address] [place] [phone] 14 Feb, 2018 [facility] [address] [facility] [id number] [address] [place] [phone] Feb, [facility] [address] [facility] [id number] [address] [place] [phone] Feb, Fibromyalgia M79.7 [facility] [address] [facility] [id number] [address] [place] [phone] 08 Feb, 2018 Complicated UTI (urinary tra ct infection) N39.0 [facility] [address] [id number] [address] [place] [phone] Feb, [facility] [address] [facility] [id number] [address] [place] [phone] Jan, Generalized anxiety disorder F41.1 and Major depressive disorder, recurrent episode with anxious distress F33.9 [facility] [address] [facility] [id number] [address] [place] [phone] Jan, Acute conjunctivitis of left eye, unspecified acute conjunctivitis type H10.32 [facility] [address] [facility] [id number] [address] [place] [phone] Jan, [facility] [address] [facility] [id number] [address] [place] [phone] Jan, Acute non-recurrent maxillar y sinusitis J01.00 ; Dysuria R30.0 ; Perimenopausal vasomotor symptoms N95.1 and Fibromyalgia M79.7 [facility] [address] [facility] [facility] [id number] [address] [place] [phone] 28 Dec, 2017 Vitamin D deficiency E55.9 [facility] [address] [facility] [id number] [address] [place] [phone] 27 Dec, 2017 Vitamin D deficiency E55.9 [facility] [address] [facility] [id number] [address] [place] [phone] 24 Dec, 2017 Vitamin D deficiency E55.9 [facility] [address] [facility] [id number] [address] [place] [phone] Dec, [facility] [address] [id number] [address] [place] [phone] Dec, Fibromyalgia M79.7 [facility] [address] [id number] [address] [place] [phone] Nov, [facility] [address] [id number] [address] [place] [phone] Nov, [facility] [address] [id number] [address] [place] [phone] Nov, [facility] [address] [id number] [address] [place] [phone] Nov, Fibromyalgia M79.7 ; Vision changes H53.9 ; Chest wall pain R07.89 and Chronic pain syndrome G89.4 [facility] [address] [id number] [address] [place] [phone] Nov, [facility] [address] [id number] [address] [place] [phone] Nov, Rash of hands R21 [facility] [address] [id number] [address] [place] [phone] Nov, Generalized anxiety disorder F41.1 and Major depressive disorder, recurrent episode with anxious distress F33.9 [facility] [address] [id number] [address] [place] [phone] Nov, Fibromyalgia M79.7 [facility] [address] [id number] [address] [place] [phone] Nov, Complicated UTI (urinary tra ct infection) N39.0 [facility] [address] [id number] [address] [place] [phone] Oct, [facility] [address] [id number] [address] [place] [phone] Oct, Generalized anxiety disorder F41.1 and Major depressive disorder, recurrent episode with anxious distress F33.9 [facility] [address] [id number] [address] [place] [phone] Oct, [facility] [address] [facility] [id number] [address] [place] [phone] Oct, Fibromyalgia M79.7 [facility] [address] [facility] [id number] [address] [place] [phone] Sep, Restless leg syndrome G25.81 and Restless leg G25.81 [facility] [address] [facility] [id number] [address] [place] [phone] Sep, [facility] [address] [facility] [id number] [address] [place] [id number] Sep, Seasonal allergic rhinitis d ue to pollen J30.1 ; Screening for breast cancer Z12.31 ; Chest pain at rest R07.9 ; Restless leg syndrome G25.81 ; Essential (primary) hypertension I10 and Depressed F32.9 [facility] [address] [facility] [id number] [address] [place] [phone] August, Fibromyalgia M79.7 [facility] [address] [facility] [id number] [address] [place] [phone] August, [facility] [address] [place] [id number] [address] [place] [phone] August, [facility] [address] [place] [id number] [address] [place] [phone] August, Abnormal chest CT R93.8 [facility] [address] [facility] [id number] [address] [place] [phone] August, Generalized anxiety disorder F41.1 and Major depressive disorder, recurrent episode with anxious distress F33.9 [facility] [address] [facility] [id number] [address] [place] [phone] August, Abnormal chest CT R93.8 [facility] [address] [facility] [id number] [address] [place] [phone] Jul, [facility] [address] [place] [id number] [address] [place] [phone] Jul, Chronic kidney disease, stag e 4 (severe) N18.4 [facility] [address] [address] Jul, [facility] [address] [place] [id number] [place] [phone] Jul, Restless leg G25.81 ; Mixed stress and urge urinary incontinence N39.46 and Fibromyalgia M79.7 [facility] [address] [place] [id number] [place] [phone] Jul, Chronic kidney disease, stag e 4 (severe) N18.4 [facility] [address] [phone] Jun, Orthostatic hypotension I95. 1 ; Chronic kidney disease, stage 4 (severe) N18.4 ; Chest wall discomfort R07.89 and Body mass index (BMI) of 40.0- 44.9 in adult Z68.41 [place] [address] [phone] Jun, [facility] [address] [phone] Jun, Orthostatic hypotension I95. 1 [facility] [address] [phone] Jun, [facility] [address] [place] [id number] [place] [phone] Jun, Orthostatic hypotension I95. 1 ; Dysuria R30.0 and Acute cystitis without hematuria N30.00 [facility] [address] [phone] Jun, [facility] [address] [place] [id number] [place] [phone] Jun, Chronic kidney disease, stag e 4 (severe) N18.4 [facility] [address] [place] [id number] [address] [place] [phone] Jun, Fibromyalgia M79.7 [facility] [address] [facility] [id number] [address] [place] [phone] Jun, [facility] [address] [facility] [id number] [address] [place] [phone] Jun, [facility] [address] [facility] [id number] [address] [place] [phone] May, Abnormal chest CT R93.8 and Stage 3 chronic kidney disease N18.3 [facility] [address] [facility] [id number] [address] [place] [phone] May, Chronic kidney disease, stag e 4 (severe) N18.4 [facility] [address] [facility] [facility] [id number] [address] [place] [phone] May, Chronic kidney disease, stag e 4 (severe) N18.4 [facility] [address] [facility] [id number] [address] [place] [phone] May, Abnormal chest CT R93.8 [facility] [address] [facility] [id number] [address] [place] [phone] May, [facility] [address] [facility] [id number] [address] [place] [id number] May, [facility] [address] [facility] [id number] [address] [place] [phone] May, Generalized anxiety disorder F41.1 and Major depressive disorder, recurrent episode with anxious distress F33.9 [facility] [address] [facility] [id number] [address] [place] [phone] May, Mood disorder F39 [facility] [address] [facility] [id number] [address] [place] [phone] Apr, [facility] [address] [facility] [id number] [address] [place] [phone] Apr, Infected skin lesion L08.9 a nd Muscle strain of right shoulder region, initial encounter S46.911A [facility] [address] [id number] [address] [place] [phone] Apr, Generalized anxiety disorder F41.1 and Major depressive disorder, recurrent episode with anxious distress F33.9 [facility] [address] [id number] [address] [place] [phone] Apr, [facility] [address] [id number] [address] [place] [phone] Apr, Recent urinary tract infecti on Z87.440 and Hypothyroid E03.9 [facility] [address] [id number] [address] [place] [phone] Apr, Generalized anxiety disorder F41.1 and Major depressive disorder, recurrent episode with anxious distress F33.9 [facility] [address] [id number] [address] [place] [phone] Apr, Recent urinary tract infecti on Z87.440 [facility] [address] [id number] [address] [place] [phone] Mar, [facility] [address] [id number] [address] [place] [phone] Mar, Dysuria R30.0 ; Acute cystit is without hematuria N30.00 and BMI 40.0-44.9, adult Z68.41 [facility] [address] [id number] [address] [place] [phone] Mar, [facility] [address] [id number] [address] [place] [phone] Mar, [facility] [address] [id number] [address] [place] [phone] Mar, Generalized anxiety disorder F41.1 and Major depressive disorder, recurrent episode with anxious distress F33.9 [facility] [address] [id number] [address] [place] [id number] Feb, Conjunctivitis, bacterial H1 0.9 [facility] [address] [facility] [id number] [address] [place] [phone] Feb, [facility] [address] [facility] [id number] [place] [phone] Feb, Conjunctivitis, bacterial H1 0.9 [facility] [address] [place] [id number] [place] [phone] Feb, [facility] [address] [place] [id number] [place] [phone] Feb, Dysuria R30.0 ; Acute cystit is N30.00 and BMI 40.0-44.9, adult Z68.41 [place] [address] [id number] Feb, [place] [address] [id number] Feb, Generalized anxiety disorder F41.1 and Major depressive disorder, recurrent episode with anxious distress F33.9 [place] [address] [id number] Feb, Mood disorder F39 and BMI 40 .0-44.9, adult Z68.41 [place] [address] [place] [id number] [place] [phone] Jan, [place] [address] [id number] Jan, [place] [address] [id number] Jan, Hypothyroid E03.[address] [phone] Jan, [place] [address] [place] [id number] [place] [id number] Jan, Chronic kidney disease, unsp ecified N18.9 ; Hypokalemia E87.6 ; Essential (primary) hypertension I10 ; Fibromyalgia M79.7 ; Coronary artery disease involving [place] coronary artery of [place] heart, angina presence unspecified I25.10 ; Hypothyroid E03.9 and Encounter for immunization Z23 [facility] [address] [facility] [id number] [address] [place] [phone] 04 Jan, 2017 Hypothyroid E03.9 [facility] [address] [facility] [id number] [address] [place] [id number] Jan, [facility] [address] [facility] [id number] [address] [place] [id number] 28 Dec, 2016 Vitamin D deficiency E55.9 [facility] [address] [facility] [id number] [address] [place] [phone] 28 Dec, 2016 Primary osteoarthritis of le ft knee M17.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 [place] [address] [facility] [id number] [address] [place] [phone] 19 Dec, 2016 Fibromyalgia M79.7 [facility] [address] [facility] [id number] [address] [place] [phone] 18 Dec, 2016 Mood disorder F39 [place] [address] [facility] [id number] [address] [place] [phone] 13 Dec, 2016 [place] [address] [facility] [id number] [address] [place] [phone] 13 Dec, 2016 Generalized anxiety disorder F41.1 and Major depressive disorder, recurrent episode with anxious distress F33.9 [facility] [address] [facility] [id number] [address] [place] [id number] 11 Dec, 2016 [facility] [address] [facility] [id number] [address] [place] [phone] 08 Dec, 2016 Streptococcal meningitis G00 .2 [facility] [address] [facility] [id number] [address] [place] [phone] 07 Dec, 2016 Streptococcal meningitis G00 .2 [place] [address] [facility] [id number] [address] [place] [phone] Dec, [facility] [address] [facility] [id number] [address] [place] [phone] Dec, Streptococcal meningitis G00 .2 [facility] [address] [facility] [id number] [address] [place] [phone] Dec, [facility] [address] [facility] [id number] [address] [place] [phone] Dec, Major depressive disorder, r ecurrent episode with anxious distress F33.9 [facility] [address] [facility] [id number] [address] [place] [phone] Nov, Fever, unspecified fever cau se R50.9 [facility] [address] [facility] [id number] [address] [place] [phone] Nov, [place] [address] [place] [id number] [address] [place] [phone] Nov, Hypothyroid E03.9 [facility] [address] [place] [id number] [address] [place] [phone] Nov, Generalized anxiety disorder F41.1 and Major depressive disorder, recurrent episode with anxious distress F33.9 [place] [address] [place] [id number] [address] [place] [phone] Nov, [facility] [address] [place] [id number] [address] [place] [address] [id number] Oct, Dental examination Z01.20 [facility] [address] [place] [id number] [address] [place] [phone] Oct, Generalized anxiety disorder F41.1 and Major depressive disorder, recurrent episode with anxious distress F33.9 [facility] [address] [place] [id number] [address] [place] [phone] Oct, Chronic kidney disease, stag e 4 (severe) N18.4 [facility] [address] [place] [id number] [address] [place] [phone] Oct, [facility] [address] [place] [id number] [address] [place] [phone] Oct, Fibromyalgia M79.7 [facility] [address] [facility] [id number] [address] [place] [phone] Oct, [facility] [address] [facility] [id number] [address] [place] [phone] Oct, Generalized anxiety disorder F41.1 ; Major depressive disorder, recurrent episode with anxious distress F33.9 and Bipolar disorder, current episode manic without psychotic features F31.10 [facility] [address] [facility] [id number] [address] [place] [phone] Sep, [place] [address] [facility] [id number] [address] [place] [phone] Sep, [place] [address] [place] [id number] [address] [place] [phone] Sep, Vitamin D deficiency E55.9 [place] [address] [place] [id number] [address] [place] [phone] Sep, Vitamin D deficiency E55.9 [place] [address] [place] [id number] [address] [place] [phone] Sep, [place] [address] [facility] [id number] [address] [place] [phone] Sep, Chronic kidney disease, stag e 4 (severe) N18.4 ; Hypothyroid E03.9 ; Restless leg G25.81 ; Fibromyalgia M79.7 ; Essential (primary) hypertension I10 ; Vitamin D deficiency E55.9 ; Dyspepsia R10.13 ; Anemia in chronic kidney disease D63.1 ; Chronic kidney disease, unspecified N18.9 ; Coronary artery disease involving [place] coronary artery of [place] heart, angina presence unspecified I25.10 ; Screening breast examination Z12.39 and Low back pain M54.5 [facility] [address] [place] [id number] [address] [place] [phone] August, Generalized anxiety disorder F41.1 and Major depressive disorder, recurrent episode with anxious distress F33.9 [facility] [address] [facility] [id number] [address] [place] [phone] August, Generalized anxiety disorder F41.1 and Major depressive disorder, recurrent episode with anxious distress F33.9 [facility] [address] [facility] [id number] [address] [place] [phone] August, Fibromyalgia M79.7 [facility] [address] [place] [id number] [address] [place] [phone] Jul, Generalized anxiety disorder F41.1 and Major depressive disorder, recurrent episode with anxious distress F33.9 [place] [address] [facility] [id number] [address] [place] [phone] Jul, Fibromyalgia M79.7 [place] [address] [facility] [id number] [address] [place] [phone] Jul, Generalized anxiety disorder F41.1 [place] [address] [place] [id number] [address] [place] [phone] May, [place] [address] [place] [id number] [address] [place] [phone] May, Hypothyroid E03.9 [place] [address] [place] [id number] [address] [place] [phone] May, Chronic kidney disease, stag e 4 (severe) N18.4 ; Hypothyroid E03.9 ; Restless leg G25.81 ; Fibromyalgia M79.7 ; Essential (primary) hypertension I10 ; Vitamin D deficiency E55.9 ; Dyspepsia R10.13 ; Acute non-recurrent maxillary sinusitis J01.00 ; Anemia in chronic kidney disease D63.1 ; Chronic kidney disease, unspecified N18.9 and Coronary artery disease involving [place] coronary artery of [place] heart, angina presence unspecified I25.10 [place] [address] [facility] [id number] [address] [place] [phone] May, Vitamin D deficiency, unspec ified E55.9 [place] [address] [place] [id number] [address] [place] [phone] May, Generalized anxiety disorder F41.1 and Major depressive disorder, recurrent episode with anxious distress F33.9 [facility] [address] [facility] [id number] [address] [place] [phone] Apr, Pain in right knee M25.561 a nd Pain in left knee M25.562 [facility] [address] [facility] [id number] [address] [place] [phone] Apr, [facility] [address] [facility] [id number] [address] [place] [phone] Apr, [facility] [address] [facility] [id number] [address] [place] [phone] Apr, [facility] [address] [facility] [id number] [address] [place] [phone] Mar, Generalized anxiety disorder F41.1 and Major depressive disorder, recurrent episode with anxious distress F33.9 [facility] [address] [facility] [id number] [address] [place] [phone] Mar, Generalized anxiety disorder F41.1 and Major depressive disorder, recurrent episode with anxious distress F33.9 [facility] [address] [facility] [id number] [address] [place] [phone] Mar, [facility] [address] [facility] [id number] [address] [place] [phone] Mar, [facility] [address] [facility] [id number] [address] [place] [phone] Mar, [facility] [address] [facility] [id number] [address] [place] [phone] Mar, Asthma J45.909 and Fibromyal elvira M79.7 [facility] [address] [facility] [id number] [address] [place] [phone] Mar, Chronic kidney disease, stag e 4 (severe) N18.4 ; Vitamin D deficiency E55.9 and Essential (primary) hypertension I10 [facility] [address] [phone] Feb, [facility] [address] [address] Feb, Dysuria R30.0 ; Mixed stress and urge urinary incontinence N39.46 ; Fibromyalgia M79.7 and Chronic kidney disease, stage IV (severe) N18.4 [place] [address] [address] Feb, Chronic kidney disease, stag e 4 (severe) N18.4 [place] [address] [phone] Feb, Chronic kidney disease, stag e 4 (severe) N18.4 [place] [address] [address] Feb, [place] [address] [address] Feb, Vitamin D deficiency, unspec ified E55.9 [place] [address] [address] Jan, [facility] [address] [address] Jan, [place] [address] [address] Dec, [facility] [address] [address] Dec, Chronic kidney disease, stag e 4 (severe) N18.4 [facility] [address] [address] Dec, Dysthymic disorder F34.1 and Generalized anxiety disorder F41.1 [place] [address] [address] Dec, [facility] [address] [place] [id number] [address] [place] [phone] Dec, [facility] [address] [address] Dec, Dysthymic disorder F34.1 and Generalized anxiety disorder F41.1 [facility] [address] [address] Dec, Dysuria R30.0 ; Chronic kidn ey disease, stage 4 (severe) N18.4 ; Hypertension I10 ; Dyspepsia R10.13 ; Yeast dermatitis B37.2 ; Palpitations R00.2 ; Hypothyroid E03.9 ; Functional diarrhea K59.1 and Other seasonal allergic rhinitis J30.2 [facility] [address] [place] [id number] [place] [phone] Dec, [facility] [address] [address] Nov, Dysuria R30.0 and Stress inc ontinence N39.3 [facility] [id number] [place] [phone] Nov, [place] [address] [address] Nov, [place] [address] [address] Nov, Osteoarthritis of knees, jose ateral M17.0 [facility] [address] [place] [id number] [address] [place] [phone] Nov, Dysthymic disorder F34.1 and Generalized anxiety disorder F41.1 [place] [address] [address] Nov, [place] [address] [place] [id number] [address] [place] [phone] Nov, [facility] [address] [address] Nov, Urgency of urination R39.15 [place] [address] [address] Nov, [place] [address] [address] Nov, Chronic kidney disease, stag e 4 (severe) N18.4 [place] [address] [address] Oct, Hypertension I10 ; Coronary artery disease involving [place] coronary artery of [place] heart, angina presence unspecified I25.10 ; Palpitations R00.2 ; Hypothyroid E03.9 ; Right foot pain M79.671 ; Functional diarrhea K59.1 and Other seasonal allergic rhinitis J30.2 [place] [address] [address] Oct, Dysthymic disorder F34.1 and Generalized anxiety disorder F41.1 [place] [address] [address] Sep, [place] [address] [address] Sep, [place] [address] [address] Sep, [place] [address] [address] Sep, [facility] [address] [address] Sep, [place] [address] [address] Sep, Dysthymic disorder F34.1 and Generalized anxiety disorder F41.1 [place] [address] [place] [id number] [place] [address] Sep, Asthma with acute exacerbati on in adult J45.901 ; Dysuria R30.0 ; Chronic kidney disease, stage 4 (severe) N18.4 and History of anemia Z86.2 [place] [address] [facility] [id number] [address] [place] [phone] Sep, Generalized anxiety disorder F41.1 and Dysthymic disorder F34.1 [place] [address] [facility] [id number] [address] [place] [phone] August, Screening breast examination Z12.39 and Acute recurrent maxillary sinusitis J01.01 [place] [address] [facility] [id number] [address] [place] [phone] August, Osteoarthritis of knees, jose ateral M17.0 [place] [address] [facility] [id number] [address] [place] [phone] August, Chronic kidney disease, stag e 4 (severe) N18.4 ; Acute non- recurrent maxillary sinusitis J01.00 ; Urinary problem R39.89 ; Bowel habit changes R19.4 ; Functional diarrhea K59.1 and History of colon polyps Z86.010 [place] [address] [place] [id number] [address] [place] [phone] Jul, Dysthymic disorder F34.1 and Generalized anxiety disorder F41.1 [place] [address] [facility] [id number] [address] [place] [phone] Jul, [place] [address] [facility] [id number] [address] [place] [phone] Jul, Dysthymic disorder F34.1 ; G eneralized anxiety disorder F41.1 and senior living use of drug Z79.899 [place] [address] [facility] [id number] [address] [place] [phone] Jul, [place] [address] [place] [id number] [address] [place] [id number] 16 Jun, 2015 [place] [address] [place] [id number] [address] [place] [phone] Jun, [place] [address] [place] [address] May, [facility] [address] [address] May, Dysthymic disorder F34.1 and Generalized anxiety disorder F41.1 [place] [address] [place] [id number] [address] [place] [address] Apr, Kidney disease N28.9 [place] [address] [address] Apr, Generalized anxiety disorder F41.1 and Dysthymic disorder F34.1 [place] [address] [address] Apr, Chronic kidney disease, stag e 4 (severe) N18.4 [place] [address] [address] Apr, Generalized anxiety disorder F41.1 ; Major depression, recurrent F33.9 and Sleep disturbance G47.9 [place] [address] [address] Mar, Generalized anxiety disorder F41.1 and Dysthymic disorder F34.1 [place] [address] [address] Mar, Generalized anxiety disorder F41.1 ; Dysthymic disorder F34.1 and Insomnia G47.00 [place] [address] [place] [address] Mar, [place] [address] [place] [id number] [address] [place] [phone] Mar, [place] [address] [address] Mar, Osteoarthritis of knees, jose ateral M17.0 [place] [address] [place] [id number] [address] [place] [address] Mar, Hypertension I10 ; Hypothyro id E03.9 ; Dysthymic disorder F34.1 ; Chronic kidney disease, stage 4 (severe) N18.4 and Nausea & vomiting R11.2 [place] [address] [address] Mar, Generalized anxiety disorder F41.1 ; Dysthymic disorder F34.1 and Insomnia G47.00 [place] [address] [address] Mar, Dehydration E86.0 ; Chronic kidney disease, stage 4 (severe) N18.4 and Nausea & vomiting R11.2 [facility] [address] [address] Mar, Gastroenteritis K52.9 [place] [address] [address] Mar, [place] [address] [address] Mar, [place] [address] [address] Feb, Dysthymic disorder F34.1 and Generalized anxiety disorder F41.1 [place] [address] [address] Jan, UTI (urinary tract infection ) N39.0 ; Asthma J45.909 ; Coronary artery disease involving [place] coronary artery of [place] heart, angina presence unspecified I25.10 ; Hypertension I10 ; Hypothyroid E03.9 ; Vitamin D deficiency E55.9 ; Insomnia G47.00 ; Palpitations R00.2 ; Depressed F32.9 ; Restless leg G25.81 and Anxiety F41.9 [place] [address] [address] Jan, Dysthymic disorder F34.1 and Generalized anxiety disorder F41.1 [place] [address] [address] Jan, [place] [address] [address] Dec, [place] [address] [address] Dec, Alkalosis 276.3 ; Chronic ki dney disease, Stage IV (severe) 585.4 ; Hyperpotassemia 276.7 ; Secondary hyperparathyroidism, renal 588.81 ; Proteinuria 791.0 ; Unspecified vitamin D deficiency 268.9 ; Anemia in chronic kidney disease 285.21 ; Other and unspecified hyperlipidemia 272.4 ; Hypertension, essential, benign 401.1 and Chronic kidney disease (CKD), stage III (moderate) 585.3 [place] [address] [address] Dec, [place] [address] [address] Dec, Depressive disorder, not els ewhere classified 311 and Generalized anxiety disorder 300.02 [place] [address] [address] Dec, [place] [address] [address] Dec, [place] [address] [address] Nov, Depressive disorder, not els ewhere classified 311 and Generalized anxiety disorder 300.02 [place] [address] [address] Nov, Arthritis of both knees 716. [address] [address] 07 Nov, 2014 PAF (paroxysmal atrial fibri llation) 427.31 ; CAD (coronary artery disease) 414.00 ; Chest pain 786.50 and Chronic kidney disease (CKD) stage G4/A1, severely decreased glomerular filtration rate (GFR) between 15-29 mL/min/1.73 square meter and albuminuria creatinine ratio less than 30 mg/g 585.4 [facility] [address] [place] [id number] [address] [place] [address] Oct, Coronary atherosclerosis of unspecified type of vessel, [place] or graft 414.00 ; Chronic kidney disease, Stage IV (severe) 585.4 ; Hypertension 401.9 and Edema 782.3 [facility] [address] [place] [id number] [place] [address] Oct, Depressive disorder, not els ewhere classified 311 and Generalized anxiety disorder 300.02 [facility] [address] [address] Oct, Depressive disorder, not els ewhere classified 311 and Generalized anxiety disorder 300.02 [place] [address] [address] Oct, [place] [address] [address] Oct, [facility] [address] [address] Sep, [place] [address] [address] Sep, Chronic kidney disease, Stag e IV (severe) 585.4 [place] [address] [address] Sep, [facility] [address] [address] Sep, Coronary atherosclerosis of unspecified type of vessel, [place] or graft 414.00 ; Hypertension 401.9 ; Edema 782.3 and Hypothyroidism 244.[address] [address] Sep, Coronary atherosclerosis of unspecified type of vessel, [place] or graft 414.00 ; Hypertension 401.9 ; Fibromyalgia 729.1 ; Edema 782.3 ; Hypothyroidism 244.9 and Anemia 285.[address] [place] [address] 04 Sep, 2014 Anxiety disorder, unspecifie d 300.00 and Depressive disorder, not elsewhere classified 311 [facility] [address] [id number] [address] [place] [id number] Sep, [facility] [address] [facility] [id number] [address] [place] [address] August, Generalized anxiety disorder 300.02 [facility] [address] [id number] [address] [place] [address] August, Closed fracture of lateral m alleolus 824.2 [facility] [address] [id number] [address] [place] [address] Jul, [facility] [address] [facility] [id number] [address] [place] [id number] Jul, [facility] [address] [facility] [id number] [address] [place] [id number] Jun, [facility] [address] [id number] [address] [place] [id number] Jun, [facility] [address] [facility] [id number] [address] [place] [phone] Jun, [facility] [address] [facility] [id number] [address] [place] [phone] Jun, [facility] [address] [facility] [id number] [address] [place] [phone] Jun, [facility] [address] [facility] [id number] [address] [place] [phone] Jun, [facility] [address] [facility] [id number] [address] [place] [phone] May, [facility] [address] [id number] [address] [place] [phone] May, [facility] [address] [facility] [id number] [address] [place] [phone] May, [facility] [address] [id number] [address] [place] [address], [place] [id number] 18 May, 2014 [facility] [address] [id number] [address] [place] [address], [place] [id number] 16 May, 2014 [facility] [address] [id number] [address] [place] [address], [place] [id number] 16 May, 2014 [facility] [address] [id number] [address] [place] [address], [place] [id number] 13 May, 2014 [facility] [address] [id number] [address] [place] [address], [place] [phone] 13 May, 2014 [facility] [address] [id number] [address] [place] [address], [place] [id number] 10 May, 2014 [facility] [address] [id number] [address] [place] [address], [place] [id number] 10 May, 2014 [facility] [address] [id number] [address] [place] [address], [place] [address] Apr, [facility] [address] [id number] [address] [place] [address], [place] [address] Apr, [facility] [address] [id number] [address] [place] [address], [place] [address] Mar, [facility] [address] [id number] [address] [place] [address], [place] [address] Mar, [facility] [address] [id number] [address] [place] [address], [place] [address] Mar, [facility] [address] [id number] [address] [place] [address], [place] [address] Mar, [facility] [address] [id number] [address] [place] [address], [place] [address] Mar, [facility] [address] [id number] [address] [place] [address], [place] [address] Mar, [facility] [address] [id number] [address] [place] [address], [place] [address] Mar, [facility] [address] [id number] [address] [place] [address], [place] [address] Feb, [facility] [address] [id number] [address] [place] [address], [place] [address] Feb, [facility] [address] [id number] [address] [place] [address], [place] [address] Feb, [facility] [address] [id number] [address] [place] [address], [place] [address] Jan, [facility] [address] [id number] [address] [place] [address], [place] [address] Jan, [facility] [address] [id number] [address] [place] [address], [place] [address] Jan, [facility] [address] [id number] [address] [place] [address], [place] [address] Jan, [facility] [address] [id number] [address] [place] [address], [place] [address] Jan, [facility] [address] [id number] [address] [place] [address], [place] [address] Jan, [facility] [address] [id number] [address] [place] [address], [place] [address] Jan, [facility] [address] [id number] [address] [place] [address], [place] [address] Jan, [facility] [address] [id number] [address] [place] [address], [place] [address] Jan, [facility] [address] [id number] [address] [place] [address], [place] [address] Jan, [facility] [address] [id number] [address] [place] [address], [place] [address] Nov, [facility] [address] [id number] [address] [place] [address], [place] [address] Nov, [facility] [address] [id number] [address] [place] [address], [place] [address] Nov, [facility] [address] [id number] [address] [place] [address], [place] [address] Oct, [facility] [address] [id number] [address] [place] [address], [place] [address] Oct, [facility] [address] [id number] [address] [place] [address], [place] [address] Oct, [facility] [address] [id number] [address] [place] [address], [place] [address] Oct, [facility] [address] [id number] [address] [place] [address], [place] [address] Oct, [facility] [address] [id number] [address] [place] [address], [place] [address] Oct, [facility] [address] [id number] [address] [place] [address], [place] [address] Oct, [facility] [address] [id number] [address] [place] [address], [place] [address] Oct, [facility] [address] [id number] [address] [place] [address], [place] [address] Oct, [facility] [address] [id number] [address] [place] [address], [place] [address] Sep, [facility] [address] [id number] [address] [place] [address], [place] [address] Sep, [facility] [address] [id number] [address] [place] [address], [place] [address] Sep, [facility] [address] [id number] [address] [place] [address], [place] [address] Sep, [facility] [address] [id number] [address] [place] [address], [place] [address] Sep, [facility] [address] [id number] [address] [place] [address], [place] [address] Sep, [facility] [address] [id number] [address] [place] [address], [place] [address] Sep, [facility] [address] [id number] [address] [place] [address], [place] [address] Sep, [facility] [address] [id number] [address] [place] [address], [place] [address] Sep, [facility] [address] [id number] [address] [place] [address], [place] [address] August, [facility] [address] [id number] [address] [place] [address], [place] [address] August, [facility] [address] [id number] [address] [place] [address], [place] [address] August, [facility] [address] [id number] [address] [place] [address], [place] [address] August, [facility] [address] [id number] [address] [place] [address], [place] [address] August, [facility] [address] [id number] [address] [place] [address], [place] [address] August, [facility] [address] [id number] [address] [place] [address], [place] [address] Jul, [facility] [address] [id number] [address] [place] [address], [place] [address] Jul, [facility] [address] [id number] [address] [place] [address], [place] [address] Jul, [facility] [address] [id number] [address] [place] [address], [place] [address] Jul, [facility] [address] [id number] [address] [place] [address], [place] [address] Jul, [facility] [address] [id number] [address] [place] [address], [place] [address] Jul, [facility] [address] [id number] [address] [place] [address], [place] [address] 10 Jun, 2013 [facility] [address] [id number] [address] [place] [address], [place] [address] Jun, [facility] [address] [id number] [address] [place] [address], [place] [address] May, [facility] [address] [id number] [address] [place] [address], [place] [address] May, [facility] [address] [id number] [address] [place] [address], [place] [address] May, [facility] [address] [id number] [address] [place] [address], [place] [address] May, [facility] [address] [id number] [address] [place] [address], [place] [address] Apr, [facility] [address] [id number] [address] [place] [address], [place] [address] Apr, [facility] [address] [id number] [address] [place] [address], [place] [address] Mar, [facility] [address] [id number] [address] [place] [address], [place] [address] Mar, [facility] [address] [id number] [address] [place] [address], [place] [address] 17 Mar, 2013 [facility] [address] [id number] [address] [place] [address], [place] [address] Mar, [facility] [address] [id number] [address] [place] [address], [place] [address] Mar, [facility] [address] [id number] [address] [place] [address], [place] [address] Mar, [facility] [address] [id number] [address] [place] [address], [place] [address] Feb, [facility] [address] [id number] [address] [place] [address], [place] [address] Feb, [facility] [address] [id number] [address] [place] [address], [place] [address] Feb, [facility] [address] [id number] [address] [place] [address], [place] [address] Feb, [facility] [address] [id number] [address] [place] [address], [place] [address] Feb, [facility] [address] [id number] [address] [place] [address] Feb, [facility] [address] [id number] [address] [place] [address], [place] [address] Jan, [facility] [address] [id number] [address] [place] [address], [place] [address] Jan, [facility] [address] [id number] [address] [place] [address], [place] [address] Jan, [facility] [address] [id number] [address] [place] [address], [place] [address] Jan, [facility] [address] [id number] [address] [place] [address], [place] [address] Jan, [facility] [address] [id number] [address] [place] [address], [place] [address] Jan, [facility] [address] [id number] [address] [place] [address], [place] [address] Dec, [facility] [address] [id number] [address] [place] [address] Dec, [facility] [address] [id number] [address] [place] [address], [place] [address] Nov, [facility] [address] [id number] [address] [place] [address], [place] [address] Nov, [facility] [address] [id number] [address] [place] [address], [place] [address] Oct, [facility] [address] [id number] [address] [place] [address], [place] [address] Oct, [facility] [address] [id number] [address] [place] [address], [place] [address] Oct, [facility] [address] [id number] [address] [place] [address], [place] [address] Oct, [facility] [address] [id number] [address] [place] [address], [place] [address] Oct, [facility] [address] [id number] [address] [place] [address], [place] [address] Oct, [facility] [address] [id number] [address] [place] [address], [place] [address] Sep, [facility] [address] [id number] [address] [place] [address], [place] [address] Sep, [facility] [address] [id number] [address] [place] [address], [place] [address] Sep, [facility] [address] [id number] [address] [place] [address], [place] [address] Sep, [facility] [address] [id number] [address] [place] [address], [place] [address] August, [facility] [address] [id number] [address] [place] [address], [place] [address] August, [facility] [address] [id number] [address] [place] [address], [place] [address] August, [facility] [address] [id number] [address] [place] [address], [place] [address] August, [facility] [address] [id number] [address] [place] [address], [place] [address] August, [facility] [address] [id number] [address] [place] [address], [place] [address] Jul, [facility] [address] [id number] [address] [place] [address], [place] [address] Jul, [facility] [address] [id number] [address] [place] [address], [place] [address] Jul, [facility] [address] [id number] [address] [place] [address], [place] [address] Jul, [facility] [address] [id number] [address] [place] [address], [place] [address] Jul, [facility] [address] [id number] [address] [place] [address], [place] [address] Jul, [facility] [address] [id number] [address] [place] [address], [place] [address] Jul, [facility] [address] [id number] [address] [place] [address], [place] [address] Jul, [facility] [address] [id number] [address] [place] [address], [place] [address] Jul, [facility] [address] [id number] [address] [place] [address], [place] [address] Jul, [facility] [address] [id number] [id number] Jun, [facility] [address] [id number] [address] [place] [address], [place] [address] Jun, [facility] [address] [id number] [address] [place] [address], [place] [address] Jun, [facility] [address] [id number] [address] [place] [address], [place] [address] Jun, [facility] [address] [id number] [address] [place] [address], [place] [address] Jun, [facility] [address] [id number] [address] [place] [address], [place] [address] May, [facility] [address] [id number] [address] [place] [address], [place] [address] May, [facility] [address] [id number] [address] [place] [address] May, [facility] [address] [id number] [address] [place] [address], [place] [address] Apr, [facility] [address] [id number] [address] [place] [address], [place] [address] Apr, [facility] [address] [id number] [address] [place] [address], [place] [address] Apr, [facility] [address] [id number] [address] [place] [address], [place] [address] Apr, [facility] [address] [id number] [address] [place] [address], [place] [address] Apr, [facility] [address] [id number] [address] [place] [address], [place] [address] Apr, [facility] [address] [id number] [address] [place] [address], [place] [address] Mar, [facility] [address] [id number] [address] [place] [address], [place] [address] Mar, [facility] [address] [id number] [address] [place] [address], [place] [address] Mar, [facility] [address] [id number] [address] [place] [address], [place] [address] Mar, [facility] [address] [id number] [address] [place] [address], [place] [address] Feb, [facility] [address] [id number] [address] [place] [address], [place] [address] Feb, [facility] [address] [id number] [address] [place] [address], [place] [address] Feb, [facility] [address] [id number] [address] [place] [address], [place] [address] Feb, [facility] [address] [id number] [address] [place] [address], [place] [address] Feb, [facility] [address] [id number] [address] [place] [address], [place] [address] Feb, [facility] [address] [id number] [address] [place] [address], [place] [address] Feb, [facility] [address] [id number] [address] [place] [address], [place] [address] Feb, [facility] [address] [id number] [address] [place] [address], [place] [address] Feb, [facility] [address] [id number] [address] [place] [address], [place] [address] Feb, [facility] [address] [id number] [address] [place] [address], [place] [address] Feb, [facility] [address] [id number] [address] [place] [address], [place] [address] Feb, [facility] [address] [id number] [address] [place] [address], [place] [address] Feb, [facility] [address] [id number] [address] [place] [address], [place] [address] Feb, [facility] [address] [id number] [address] [place] [address], [place] [address] Feb, [facility] [address] [id number] [address] [place] [address], [place] [address] Feb, [facility] [address] [id number] [address] [place] [address], [place] [address] Jan, [facility] [address] [id number] [address] [place] [address], [place] [address] Jan, [facility] [address] [id number] [address] [place] [address], [place] [address] Jan, [facility] [address] [id number] [address] [place] [address], [place] [address] Jan, [facility] [address] [id number] [address] [place] [address], [place] [address] Jan, [facility] [address] [id number] [address] [place] [address], [place] [address] Jan, [facility] [address] [id number] [address] [place] [address], [place] [address] Jan, [facility] [address] [id number] [address] [place] [address], [place] [address] 16 Jan, 2012 [facility] [address] [id number] [address] [place] [address], [place] [address] 16 Jan, 2012 [facility] [address] [id number] [address] [place] [address], [place] [address] 15 Jan, 2012 [facility] [address] [id number] [address] [place] [address], [place] [address] 15 Jan, 2012 [facility] [address] [id number] [address] [place] [address], [place] [address] Jan, [facility] [address] [id number] [address] [place] [address], [place] [address] 26 Sep2011 [facility] [address] [id number] [address] [place] [address] [address] 26 Sep2011 [facility] [address] [id number] [address] [place] [address], [place] [address] 24 Sep2011 [facility] [address] [id number] [address] [place] [address], [place] [address] 23 Sep, 2011 [facility] [address] [id number] [address] [place] [address] 22 Sep, 2011 [facility] [address] [id number] [address] [place] [address], [place] [address] 21 Sep2011 [facility] [address] [id number] [address] [place] [address], [place] [address] 20 Sep, 2011 [facility] [address] [id number] [address] [place] [address], [place] [address] 20 Dec, 2011 [facility] [address] [id number] [address] [place] [address], [place] [address] 07 Dec, 2011 [facility] [address] [id number] [address] [place] [address], [place] [address] 06 Sep, 2011 [facility] [address] [id number] [address] [place] [address], [place] [address] 06 Dec, 2011 [facility] [address] [id number] [address] [place] [address], [place] [address] 05 Dec, 2011 [facility] [address] [id number] [address] [place] [address], [place] [address] 23 Nov, 2011 [facility] [address] [id number] [address] [place] [address], [place] [address] 17 Nov, 2011 [facility] [address] [id number] [address] [place] [address], [place] [address] Nov, [facility] [address] [id number] [address] [place] [address], [place] [address] Nov, [facility] [address] [id number] [address] [place] [address], [place] [address] Nov, [facility] [address] [id number] [address] [place] [address], [place] [address] Nov, [facility] [address] [id number] [address] [place] [address], [place] [address] Nov, [facility] [address] [id number] [address] [place] [address], [place] [address] Nov, [facility] [address] [id number] [address] [place] [address], [place] [address] Oct, [facility] [address] [id number] [address] [place] [address], [place] [address] Oct, [facility] [address] [id number] [address] [place] [address], [place] [address] Oct, [facility] [address] [id number] [address] [place] [address], [place] [address] Oct, [facility] [address] [id number] [address] [place] [address], [place] [address] Oct, [facility] [address] [id number] [address] [place] [address], [place] [address] Oct, [facility] [address] [id number] [address] [place] [address], [place] [address] Oct, [facility] [address] [id number] [address] [place] [address], [place] [address] Sep, [facility] [address] [id number] [address] [place] [address], [place] [address] Sep, [facility] [address] [id number] [address] [place] [address], [place] [address] August, [facility] [address] [id number] [address] [place] [address], [place] [address] August, [facility] [address] [id number] [address] [place] [address], [place] [address] August, [facility] [address] [id number] [address] [place] [address], [place] [address] August, [facility] [address] [id number] [address] [place] [address], [place] [address] Jul, [facility] [address] [id number] [address] [place] [address], [place] [address] Jul, [facility] [address] [id number] [address] [place] [address], [place] [address] Jul, [facility] [address] [id number] [address] [place] [address], [place] [address] Jul, [facility] [address] [id number] [address] [place] [address], [place] [address] Jul, [facility] [address] [id number] [address] [place] [address], [place] [address] Jul, [facility] [address] [id number] [address] [place] [address], [place] [address] Jul, [facility] [address] [id number] [address] [place] [address], [place] [address] Jul, [facility] [address] [id number] [address] [place] [address], [place] [address] Jul, [facility] [address] [id number] [address] [place] [address], [place] [address] 23 Jun, 2011 [facility] [address] [id number] [address] [place] [address], [place] [address] 19 Jun, 2011 [facility] [address] [id number] [address] [place] [address], [place] [address] 15 Jun, 2011 [facility] [address] [id number] [address] [place] [address], [place] [address] 14 Jun, 2011 [facility] [address] [id number] [address] [place] [address], [place] [address] Jun, [facility] [address] [id number] [address] [place] [address], [place] [address] Jun, [facility] [address] [id number] [address] [place] [address], [place] [address] Jun, [facility] [address] [id number] [address] [place] [address], [place] [address] 25 May, 2011 [facility] [address] [id number] [address] [place] [address], [place] [address] 24 May, 2011 [facility] [address] [id number] [address] [place] [address], [place] [address] 16 May, 2011 [facility] [address] [id number] [address] [place] [address], [place] [address] May, [facility] [address] [id number] [address] [place] [address], [place] [address] May, [facility] [address] [id number] [address] [place] [address], [place] [address] Apr, [facility] [address] [id number] [address] [place] [address], [place] [address] 19 Apr, 2011 [facility] [address] [id number] [address] [place] [address], [place] [address] 13 Apr, 2011 [facility] [address] [id number] [address] [place] [address], [place] [address] Apr, [facility] [address] [id number] [address] [place] [address], [place] [address] 05 Apr, 2011 [facility] [address] [id number] [address] [place] [address], [place] [address] Mar, [facility] [address] [id number] [address] [place] [address], [place] [address] Mar, [facility] [address] [id number] [address] [place] [address], [place] [address] Mar, [facility] [address] [id number] [address] [place] [address], [place] [address] Mar, [facility] [address] [id number] [address] [place] [address], [place] [address] Mar, [facility] [address] [id number] [address] [place] [address], [place] [address] Mar, [facility] [address] [id number] [address] [place] [address], [place] [address] Mar, [facility] [address] [id number] [address] [place] [address], [place] [address] Feb, [facility] [address] [id number] [address] [place] [address], [place] [address] Feb, [facility] [address] [id number] [address] [place] [address], [place] [address] Feb, [facility] [address] [id number] [address] [place] [address], [place] [address] Feb, [facility] [address] [id number] [address] [place] [address], [place] [address] Jan, [facility] [address] [id number] [address] [place] [id number] Jan, [facility] [address] [id number] [address] [place] [id number] Jan, [facility] [address] [id number] [address] [place] [id number] Jan, [facility] [address] [id number] [address] [place] [phone] Nov, [facility] [address] [id number] [address] [place] [id number] Mar, [facility] [address] [id number] [address] [place] [phone] Mar, [facility] [address] [id number] [address] [place] [id number] Mar, [facility] [address] [id number] [address] [place] [id number] Mar, [facility] [address] [id number] [address] [place] [id number] Mar, [facility] [address] [id number] [address] [place] [phone] Mar, [facility] [address] [id number] [address] [place] [phone] Feb, [facility] [address] [id number] [address] [place] [id number] Feb, [facility] [address] [id number] [address] [place] [id number] Jan, [facility] [address] [id number] [address] [place] [id number] Jan, [facility] [address] [id number] [address] [place] [id number] Jan, IMMUNIZATIONS No Known Immunizations SOCIAL HISTORY [...] History CPAP Noncompliance_ Dr. Madden advises a [employer] driving. Medical History Bacterial meningitis 12/2016 Medical [...] 09-2015 & 2007 Surgical History Bladder surgery [facility] 03/2016 Surgical History Neurotransmitter placed 10/2017 [...]
--- NOTE | 2019-08-01 10:44 | NUR ---
LAB NOTIFIED OF [facility] AND CMP
[2019-08-01 10:58] LABS: BASOPHILS # (AUTO) 0.1 10^3/uL (0.0-0.1); BASOPHILS % (AUTO) 1 % (0-10); EOSINOPHILS # (AUTO) 0.3 10^3/uL (0.0-0.3); EOSINOPHILS % (AUTO) 3 % (0-10); HEMATOCRIT 33 % (35-52); HEMOGLOBIN 10.9 G/DL (11.5-16.0); LYMPHOCYTES # (AUTO) 2.1 X 10^3 (1.0-4.0); LYMPHOCYTES % (AUTO) 19 % (12-44); MEAN CORPUSCULAR HEMOGLOBIN 31 PG (25-34); MEAN CORPUSCULAR HGB CONC 33 G/DL (32-36); MEAN CORPUSCULAR VOLUME 93 FL (80-99); MEAN PLATELET VOLUME 10.2 FL (7.4-10.4); MONOCYTES # (AUTO) 0.9 X 10^3 (0.0-1.0); MONOCYTES % (AUTO) 9 % (0-12); NEUTROPHILS # (AUTO) 7.3 X 10^3 (1.8-7.8); NEUTROPHILS % (AUTO) 68 % (42-75); PLATELET COUNT 237 10^3/uL (130-400); WHITE BLOOD COUNT 10.6 10^3/uL (4.3-11.0)
--- OUTSIDE RECORDS SUMMARY | 2019-08-01 10:59 | XMS REPORT | Continuity of Care Document ---
Author Organization Unknown Address Unknown Phone Unavailable Allergies Active Description Code Type Severity Reaction Onset Reported/Identified Relationship to Patient Clinical Status Yes No Known Drug Allergies [id number] Drug Allergy Unknown N/A 09/29/2015 Yes diltiazem [id number] Drug Allergy Unknown N/A 10/10/2017 Yes NSAIDS (Non-Steroidal Anti-Inflamma [id number] Drug Allergy Unknown N/A 08/03/2018 Yes Sulfa (Sulfonamide Antibiotics) [id number] Drug Allergy Unknown N/A 019 Medications There is no data. Problems Date Dx Coded Attending Type Code Diagnosis Diagnosed By ZHANE BOSCH APRN Ot M25.511 PAIN IN RIGHT SHOULDER 03/15/1324 SHANTELLE HAWTHORNE Ot I10 ESSENTIAL (PRIMARY) HYPERTENSION 03/15/1324 SHANTELLE HAWTHORNE Ot I25.10 ATHSCL HEART DISEASE OF [place] CORONARY 03/15/1324 SHANTELLE HAWTHORNE Ot I49.1 ATRIAL PREMATURE DEPOLARIZATION 03/15/1324 SHANTELLE HAWTHORNE Ot I49.3 VENTRICULAR PREMATURE DEPOLARIZATION 03/15/1514 PERI CASTANEDA APRN Ot R29.898 OT SYMPTOMS AND SIGNS INVOLVING THE MUS 03/15/1514 PERI CASTANEDA APRN Ot Z98.890 OTHER SPECIFIED POSTPROCEDURAL STATES 03/15/1614 MYESHA THAKUR MD Ot D50.9 IRON DEFICIENCY ANEMIA, UNSPECIFIED 03/15/1614 MYESHA THAKUR MD Ot N18.4 CHRONIC KIDNEY DISEASE, STAGE 4 (SEVERE) 03/15/1614 MYESHA THAKUR MD Ot Z79.899 OTHER CORRECTION (CURRENT) DRUG THERAPY 10/24/2005 Ot 780.57 01/27/2009 244.9 HYPO THYROIDISM 01/27/2009 401.9 Comb ined Systolic And Diastolic Elevation 01/27/2009 244.9 HYPO THYROIDISM 01/27/2009 401.9 Comb ined Systolic And Diastolic Elevation 01/27/2009 OGLESBY DO, CAMERON K 244.9 HYPOTHYROIDISM 01/27/2009 OGLESBY DO, CAMERON K 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 01/27/2009 OGLESBY DO, CAMERON K 244.9 HYPOTHYROIDISM 01/27/2009 OGLESBY DO, CAMERON K 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 01/27/2009 244.9 HYPO THYROIDISM 01/27/2009 401.9 Comb ined Systolic And Diastolic Elevation 01/27/2009 OGLESBY DO, CAMERON K 244.9 HYPOTHYROIDISM 01/27/2009 OGLESBY DO, CAMERON K 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 01/27/2009 STACEY GAMINO PA-C 244.9 HYPOTHYROIDISM 01/27/2009 STCAEY GAMINO PA-C 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 01/27/2009 244.9 HYPO THYROIDISM 01/27/2009 401.9 Comb ined Systolic And Diastolic Elevation 01/27/2009 244.9 HYPO THYROIDISM 01/27/2009 401.9 Comb ined Systolic And Diastolic Elevation 01/27/2009 244.9 HYPO THYROIDISM 01/27/2009 401.9 Comb ined Systolic And Diastolic Elevation 01/27/2009 OGLESBY DO, [...] Combined Systolic And Diastolic Elevation 01/27/2009 CORLEY SPREADER, MAKSIM R 244.9 HYPOTHYROIDISM 01/27/2009 CORLEY SPREADER, MAKSIM R 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 01/27/2009 CORLEY SPREADER, MAKSIM R 244.9 HYPOTHYROIDISM 01/27/2009 CORLEY SPREADER, MAKSIM R 401.9 Combined Systolic And Diastolic [...] And Diastolic Elevation 01/27/2009 KEIRA FORD PSYD L 244.9 HYPOTHYROIDISM 01/27/2009 KEIRA FORD PSYD ANN L 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 01/27/2009 OGLESBY DO, CAMERON K 244.9 HYPOTHYROIDISM 01/27/2009 OGLESBY DO, CAMERON K 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 01/27/2009 JORDAN MCDONALD APRN 244. 9 HYPOTHYROIDISM 01/27/2009 JORDAN MCDONALD APRN 401. 9 Combined Systolic And Diastolic Elevation 01/27/2009 STACEY GAMINO PA-C 244.9 HYPOTHYROIDISM 01/27/2009 STACEY GAMINO PA-C 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 01/27/2009 KEIRA FORD PSYD ANN L 244.9 HYPOTHYROIDISM 01/27/2009 KEIRA FORD PSYD ANN L 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 10/06/2009 Ot 354.0 CARP AL TUNNEL SYNDROME 11/03/2009 Ot 354.0 CARP AL TUNNEL SYNDROME 11/16/2009 Ot 998.59 OTH POSTOPER INFECTION 11/25/2009 Ot 278.00 OBE SITY, NOS 11/25/2009 Ot 311 DEPRES SIVE DISORDER NEC 11/25/2009 Ot 403.90 HYP TNSV CHR KID DIS, UNSPEC, W CHR KD ST 11/25/2009 Ot 493.90 AST HMA, UNSPECIFIED 11/25/2009 Ot 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, STAGE II (MILD) 11/25/2009 Ot 729.1 MYAL BENNETT AND MYOSITIS NOS 11/25/2009 Ot 782.3 EDEMA 11/25/[address] PAIN NEC 11/25/2009 Ot 794.30 ABN CARDIOVASC STUDY NOS 11/25/2009 Ot V58.69 OTH MED,LT,CURRENT USE 01/03/2010 Ot 278.01 MOR BID OBESITY 01/03/2010 Ot 356.9 IDIO PERIPH NEURPTHY NOS 01/03/2010 Ot 401.9 HYPE RTENSION NOS 01/03/2010 Ot 724.2 LUMBAGO 01/03/2010 Ot 729.1 MYAL BENNETT AND MYOSITIS NOS 01/03/2010 Ot 782.1 NONS PECIF SKIN ERUPT NEC 01/03/2010 Ot 789.09 ABD OMINAL PAIN, OTHER SPECIFIED SITE 01/03/2010 Ot V58.69 OTH MED,LT,CURRENT USE 01/03/2010 Ot V85.39 BOD Y MASS INDEX 39.0-39.9, ADULT 03/15/2010 729.1 FIBR OMYALGIA 03/15/2010 780.52 Ins omnia 03/15/2010 787.1 Hear tburn 03/15/2010 729.1 FIBR OMYALGIA 03/15/2010 780.52 Ins omnia 03/15/2010 787.1 Hear tburn 03/15/2010 CAMERON OGLESBY DO 729.1 FIBROMYALGIA 03/15/2010 CAMERON OGLESBY DO 780.52 Insomnia 03/15/2010 OGLESBY DO, CAMERON K 787.1 Heartburn 03/15/2010 OGLESBY DOESTHELAA K 729.1 FIBROMYALGIA 03/15/2010 OGLESBY DOESTHELAA K 780.52 Insomnia 03/15/2010 OGLESBY DOESTHELAA K 787.1 Heartburn 03/15/2010 729.1 FIBR OMYALGIA 03/15/2010 780.52 Ins omnia 03/15/2010 787.1 Hear tburn 03/15/2010 OGLESBY DOESTHELAA K 729.1 FIBROMYALGIA 03/15/2010 OGLESBY DOESTHELAA K 780.52 Insomnia 03/15/2010 OGLESBY DOESTHELAA K 787.1 Heartburn 03/15/2010 STACEY GAMINO PA-C 729.1 FIBROMYALGIA 03/15/2010 STACEY GAMINO PA-C 780.52 Insomnia 03/15/2010 STACEY GAMINO PA-C 787.1 Heartburn 03/15/2010 729.1 FIBR OMYALGIA 03/15/2010 780.52 Ins omnia 03/15/2010 787.1 Hear tburn 03/15/2010 729.1 FIBR OMYALGIA 03/15/2010 780.52 Ins omnia 03/15/2010 787.1 Hear tburn 03/15/2010 729.1 FIBR OMYALGIA 03/15/2010 780.52 Ins omnia 03/15/2010 787.1 Hear tburn 03/15/2010 OGLESBY DOESTHELAA K 729.1 FIBROMYALGIA 03/15/2010 OGLESBY DOESTHELAA K 780.52 Insomnia 03/15/2010 ESTHELA OGLESBY DOA K 787.1 Heartburn 03/15/2010 ESTHELA OGLESBY DOA K 729.1 FIBROMYALGIA 03/15/2010 OGLESBY DOESTHELAA K 780.52 Insomnia 03/15/2010 OGLESBY DOESTHELAA K 787.1 Heartburn 03/15/2010 STACEY GAMINO PA-C 729.1 FIBROMYALGIA 03/15/2010 STACEY GAMINO PA-C 780.52 Insomnia 03/15/2010 STACEY GAMINO PA-C 787.1 Heartburn 03/15/2010 CAMERON OGLESBY DO K 729.1 FIBROMYALGIA 03/15/2010 OGLESBY CAMERON WASSERMAN K 780.52 Insomnia 03/15/2010 OGLESBY CAMERON WASSERMAN K 787.1 Heartburn 03/15/2010 OGLESBY DO, CAMERON [...] DO, CAMERON K 787.1 Heartburn 03/15/2010 BARNEY SPREADER, MAKSIM R 729.1 FIBROMYALGIA 03/15/2010 CORLEY SPREADER, MAKSIM R 780.52 Insomnia 03/15/2010 CORLEY SPREADER, MAKSIM R 787.1 Heartburn 03/15/2010 CORLEY SPREADER, MAKSIM R 729.1 FIBROMYALGIA 03/15/2010 BARNEY SPREADER, MAKSIM R 780.52 Insomnia 03/15/2010 BARNEY SPREADER, MAKSIM R 787.1 Heartburn 03/15/2010 OGLESBY DO, [...] K 787.1 Heartburn 03/15/2010 KEIRA FORD PSYD 729.1 FIBROMYALGIA 03/15/2010 KEIRA FORD PSYD 780.52 Insomnia 03/15/2010 KEIRA FORD PSYD 787.1 Heartburn 03/15/2010 OGLESBY DO, CAMERON K 729.1 FIBROMYALGIA 03/15/2010 OGLESBY DO, CAMERON K 780.52 Insomnia 03/15/2010 OGLESBY DO, CAMERON K 787.1 Heartburn 03/15/2010 JORDAN MCDONALD APRN 729. 1 FIBROMYALGIA 03/15/2010 JORDAN MCDONALD APRN 780. 52 Insomnia 03/15/2010 JORDAN MCDONALD APRN 787. 1 Heartburn 03/15/2010 STACEY GAMINO PA-C 729.1 FIBROMYALGIA 03/15/2010 STACEY GAMINO PA-C 780.52 Insomnia 03/15/2010 STACEY GAMINO PA-C M 787.1 Heartburn 03/15/2010 KEIRA FORD PSYD 729.1 FIBROMYALGIA 03/15/2010 KEIRA FORD PSYD 780.52 Insomnia 03/15/2010 KEIRA FORD PSYD 787.1 Heartburn 04/20/2010 401.1 HYPE RTENSION, BENIGN ESSENTIAL 04/20/2010 401.1 HYPE RTENSION, BENIGN ESSENTIAL 04/20/2010 OGLESBY DO CAMERON K 401.1 HYPERTENSION, BENIGN ESSENTIAL 04/20/2010 OGLESBY DO CAMERON K 401.1 HYPERTENSION, BENIGN ESSENTIAL 04/20/2010 401.1 HYPE RTENSION, BENIGN ESSENTIAL 04/20/2010 OGLESBY CAMERON K 401.1 HYPERTENSION, BENIGN ESSENTIAL 04/20/2010 STACEY GAMINO PA-C 401.1 HYPERTENSION, BENIGN ESSENTIAL 04/20/2010 401.1 HYPE RTENSION, BENIGN ESSENTIAL 04/20/2010 401.1 HYPE RTENSION, BENIGN ESSENTIAL 04/20/2010 401.1 HYPE RTENSION, BENIGN ESSENTIAL 04/20/2010 OGLESBY DO, CAMERON K [...] CAMERON K 401.1 HYPERTENSION, BENIGN ESSENTIAL 04/20/2010 MAKSIM CORLEY APRN R 401.1 HYPERTENSION, BENIGN ESSENTIAL 04/20/2010 DIONTE [...] HYPERTENSION, BENIGN ESSENTIAL 04/20/2010 JORDAN MCDONALD APRN 401. 1 HYPERTENSION, BENIGN ESSENTIAL 04/20/2010 STACEY GAMINO PA-C 401.1 HYPERTENSION, BENIGN ESSENTIAL 04/20/2010 KEIRA FORD PSYD 401.1 HYPERTENSION, BENIGN ESSENTIAL 07/14/2010 726.73 LULU L SPUR 07/14/2010 726.73 LULU L SPUR 07/14/2010 OGLESBY DO, CAMERON K 726.73 HEEL SPUR 07/14/2010 OGLESBY DO, CAMERON K 726.73 HEEL SPUR 07/14/2010 726.73 LULU L SPUR 07/14/2010 OGLESBY DO, CAMERON K 726.73 HEEL SPUR 07/14/2010 STACEY GAMINO PA-C 726.73 HEEL SPUR 07/14/2010 726.73 LULU L SPUR 07/14/2010 726.73 LULU L SPUR 07/14/2010 726.73 LULU L SPUR 07/14/2010 OGLESBY DO, CAMERON K 726.73 [...] DO, CAMERON K 726.73 HEEL SPUR 07/14/2010 DIONTE CORLEY APRNIA R 726.73 HEEL SPUR 07/14/2010 CORLEY SPREADER, MAKSIM R 726.73 HEEL SPUR 07/14/2010 OGLESBY DO, CAMERON K 726.73 HEEL SPUR 07/14/2010 OGLESBY DO, CAMERON K 726.73 HEEL SPUR 07/14/2010 OGLESBY DO, CAMERON K 726.73 HEEL SPUR 07/14/2010 OGLESBY DO, CAMERON K 726.73 HEEL SPUR 07/14/2010 OGLESBY DO CAMERON K 726.73 HEEL SPUR 07/14/2010 KEIRA FORD PSYD 726.73 HEEL SPUR 07/14/2010 OGLESBY DO, CAMERON K 726.73 HEEL SPUR 07/14/2010 JORDAN MCDONALD APRN 726. 73 HEEL SPUR 07/14/2010 STACEY GAMINO PA-C 726.73 HEEL SPUR 07/14/2010 KEIRA FORD PSYD 726.73 HEEL SPUR 08/17/2010 272.4 HYPE RLIPIDEMIA 08/17/2010 272.4 HYPE RLIPIDEMIA 08/17/2010 MENDEL DOCAMERON K 272.4 HYPERLIPIDEMIA 08/17/2010 OGLESBY DO, CAMERON K 272.4 HYPERLIPIDEMIA 08/17/2010 272.4 HYPE RLIPIDEMIA 08/17/2010 OGLESBY DO, CAMERON K 272.4 HYPERLIPIDEMIA 08/17/2010 STACEY GAMINO PA-C 272.4 HYPERLIPIDEMIA 08/17/2010 272.4 HYPE RLIPIDEMIA 08/17/2010 272.4 HYPE RLIPIDEMIA 08/17/2010 272.4 HYPE RLIPIDEMIA 08/17/2010 OGLESBY DO, CAMERON K 272.4 HYPERLIPIDEMIA 08/17/2010 OGLESBY DO, CAMERON K 272.4 HYPERLIPIDEMIA 08/17/2010 STACEY GAMINO PA-C 272.4 HYPERLIPIDEMIA 08/17/2010 OGLESBY DO, CAMERON K 272.4 HYPERLIPIDEMIA 08/17/2010 OGLESBY DO, CAMERON K 272.4 HYPERLIPIDEMIA 08/17/2010 OGLESBY DO, CAMERON K 272.4 HYPERLIPIDEMIA 08/17/2010 OGLESBY DO, CAMERON K 272.4 HYPERLIPIDEMIA 08/17/2010 OGLESBY DO, CAMERON K 272.4 HYPERLIPIDEMIA 08/17/2010 OGLESBY DO, CAMERON K 272.4 HYPERLIPIDEMIA 08/17/2010 BARNEY LIND, MAKSIM R 272.4 HYPERLIPIDEMIA 08/17/2010 CORLEY SPREADER, MAKSIM R 272.4 HYPERLIPIDEMIA 08/17/2010 OGLESBY DO, CAMERON K 272.4 HYPERLIPIDEMIA 08/17/2010 OGLESBY DO, CAEMRON K 272.4 HYPERLIPIDEMIA 08/17/2010 OGLESBY DO, CAMERON K 272.4 HYPERLIPIDEMIA 08/17/2010 OGLESBY DO, CAMERON K 272.4 HYPERLIPIDEMIA 08/17/2010 OGLESBY DO, CAMERON K 272.4 HYPERLIPIDEMIA 08/17/2010 KEIRA FORD PSYD 272.4 HYPERLIPIDEMIA 08/17/2010 OGLESBY DO, CAMERON K 272.4 HYPERLIPIDEMIA 08/17/2010 JORDAN MCDONALD APRN 272. 4 HYPERLIPIDEMIA 08/17/2010 STACEY GAMINO PA-C 272.4 HYPERLIPIDEMIA 08/17/2010 KEIRA FORD PSYD 272.4 HYPERLIPIDEMIA 09/16/2010 355.5 TARS US TUNNEL SYNDROME 09/16/2010 729.4 PLAN TAR FASCIITIS 09/16/2010 355.5 TARS US TUNNEL SYNDROME 09/16/2010 729.4 PLAN TAR FASCIITIS 09/16/2010 OGLESBY DO, CAMERON K 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 SYNDROME 09/16/2010 OGLESBY DO, CAMERON K 729.4 PLANTAR FASCIITIS 09/16/2010 OGLESBY DO, CAMERON K 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 SYNDROME 09/16/2010 OGLESBY DO, CAMERON K 729.4 PLANTAR FASCIITIS 09/16/2010 355.5 TARS US TUNNEL SYNDROME 09/16/2010 729.4 PLAN TAR FASCIITIS 09/16/2010 OGLESBY DO, CAMERON K 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 SYNDROME 09/16/2010 OGLESBY DO, CAMERON K 729.4 PLANTAR FASCIITIS 09/16/2010 STACEY GAMINO PA-C 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 SYNDROME 09/16/2010 STACEY GAMINO PA-C 729.4 PLANTAR FASCIITIS 09/16/2010 355.5 TARS US TUNNEL SYNDROME 09/16/2010 729.4 PLAN TAR FASCIITIS 09/16/2010 355.5 TARS US TUNNEL SYNDROME 09/16/2010 729.4 PLAN TAR FASCIITIS 09/16/2010 355.5 TARS US TUNNEL SYNDROME 09/16/2010 729.4 PLAN TAR FASCIITIS 09/16/2010 OGLESBY DO, CAMERON K 355.5 [...] DO, CAMERON K 729.4 PLANTAR FASCIITIS 09/16/2010 CORLEY SPREADER, MAKSIM 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 09/16/2010 CORLEY SPREADER, MAKSIM R 729.4 PLANTAR FASCIITIS 09/16/2010 CORLEY SPREADER, MAKSIM 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 09/16/2010 CORELY SPREADER, MAKSIM R 729.4 PLANTAR FASCIITIS 09/16/2010 OGLESBY DO, [...] 729.4 PLANTAR FASCIITIS 09/16/2010 JORDAN MCDONALD APRN 355. 5 TARSUS TUNNEL SYNDROME 09/16/2010 JORDAN MCDONALD APRN 729. 4 PLANTAR FASCIITIS 09/16/2010 STACEY GAMINO PA-C 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 SYNDROME 09/16/2010 STACEY GAMINO PA-C 729.4 PLANTAR FASCIITIS 09/16/2010 MCCLEEARY PSYD, ROBERT L 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 SYNDROME 09/16/2010 KEIRA FORD PSYD 729.4 PLANTAR FASCIITIS 11/24/2010 461.9 Sinu sitis Acute 11/24/2010 477.9 Benito rgic Rhinitis 11/24/2010 786.05 Carmen rtness Of Breath 11/24/2010 461.9 Sinu sitis Acute 11/24/2010 477.9 Benito rgic Rhinitis 11/24/2010 786.05 Carmen rtness Of Breath 11/24/2010 OGLESBY DO CAMERON K 461.9 Sinusitis Acute 11/24/2010 OGLESBY DO, CAMERON K 477.9 Allergic Rhinitis 11/24/2010 OGLESBY DO, CAMERON K 786.05 Shortness Of Breath 11/24/2010 OGLESBY DO, CAMERON K 461.9 Sinusitis Acute 11/24/2010 OGLESBY DO, CAMERON K 477.9 Allergic Rhinitis 11/24/2010 OGLESBY DO, CAMERON K 786.05 Shortness Of Breath 11/24/2010 461.9 Sinu sitis Acute 11/24/2010 477.9 Benito rgic Rhinitis 11/24/2010 786.05 Carmen rtness Of Breath 11/24/2010 OGLESBY DO, CAMERON K 461.9 Sinusitis Acute 11/24/2010 OGLESBY DO CAMERON K 477.9 Allergic Rhinitis 11/24/2010 OGLESBY DO CAMERON K 786.05 Shortness Of Breath 11/24/2010 STACEY GAMINO PA-C 461.9 Sinusitis Acute 11/24/2010 STACEY GAMINO PA-C 477.9 Allergic Rhinitis 11/24/2010 STACEY GAMINO PA-C 786.05 Shortness Of Breath 11/24/2010 461.9 Sinu sitis Acute 11/24/2010 477.9 Benito rgic Rhinitis 11/24/2010 786.05 Carmen rtness Of Breath 11/24/2010 461.9 Sinu sitis Acute 11/24/2010 477.9 Benito rgic Rhinitis 11/24/2010 786.05 Carmen rtness Of Breath 11/24/2010 461.9 Sinu sitis Acute 11/24/2010 477.9 Benito rgic Rhinitis 11/24/2010 786.05 Carmen rtness Of Breath 11/24/2010 OGLESBY DO, CAMERON K 461.9 Sinusitis Acute 11/24/2010 OGLESBY DO, CAMERON K 477.9 Allergic Rhinitis 11/24/2010 OGLESBY DO, CAMERON K 786.05 Shortness Of Breath 11/24/2010 OGLESBY DO, CAMERON K 461.9 Sinusitis Acute 11/24/2010 OGLESBY DO, CAMERON K 477.9 Allergic Rhinitis 11/24/2010 OGLESBY DO, CAMERON K 786.05 Shortness Of Breath 11/24/2010 GAMINO PA-C, STACEY M 461.9 Sinusitis Acute 11/24/2010 GAMINO PA-C, STACEY M 477.9 Allergic Rhinitis 11/24/2010 GAMINO PA-C, STACEY M 786.05 Shortness Of Breath 11/24/2010 OGLESBY DO, [...] CAMERON K 786.05 Shortness Of Breath 11/24/2010 MAKSIM CORLEY APRN 461.9 Sinusitis Acute 11/24/2010 CORLEY SPREADER, MAKSIM R 477.9 Allergic Rhinitis 11/24/2010 CORLEY SPREADER, MAKSIM R 786.05 Shortness Of Breath 11/24/2010 CORLEY SPREADER, MAKSIM R 461.9 Sinusitis Acute 11/24/2010 CORLEY SPREADER, MAKSIM R 477.9 Allergic Rhinitis 11/24/2010 CORLEY SPREADER, MAKSIM R 786.05 Shortness Of Breath 11/24/2010 [...] PSYD ANN L 461.9 Sinusitis Acute 11/24/2010 LILIANA FORTUNE ROBERT L 477.9 Allergic Rhinitis 11/24/2010 KEIRA FORD PSYD ANN L 786.05 Shortness Of Breath 11/24/2010 OGLESBY DO, CAMERON K 461.9 Sinusitis Acute 11/24/2010 OGLESBY DO, CAMERON K 477.9 Allergic Rhinitis 11/24/2010 OGLESBY DO, CAMERON K 786.05 Shortness Of Breath 11/24/2010 JORDAN MCDONALD APRN 461. 9 Sinusitis Acute 11/24/2010 JORDAN MCDONALD APRN 477. 9 Allergic Rhinitis 11/24/2010 JORDAN MCDONALD APRN 786. 05 Shortness Of Breath 11/24/2010 STACEY GAMINO PA-C 461.9 Sinusitis Acute 11/24/2010 STACEY GAMINO PA-C 477.9 Allergic Rhinitis 11/24/2010 STACEY GAMINO PA-C 786.05 Shortness Of Breath 11/24/2010 KEIRA FORD PSYD ANN L 461.9 Sinusitis Acute 11/24/2010 KEIRA FORD PSYD ANN L 477.9 Allergic Rhinitis 11/24/2010 KEIRA FORD PSYD L 786.05 Shortness Of Breath 11/28/2010 586 Renal Failure 11/28/2010 586 Renal Failure 11/28/2010 OGLESBY DO CAMERON K 586 Renal Failure 11/28/2010 OGLESBY DO, CAMERON K 586 Renal Failure 11/28/2010 586 Renal Failure 11/28/2010 OGLESBY DO CAMERON K 586 Renal Failure 11/28/2010 STACEY GAMINO PA-C 5 86 Renal Failure 11/28/2010 586 Renal Failure 11/28/2010 586 Renal Failure 11/28/2010 586 Renal Failure 11/28/2010 OGLESBY DO, CAMERON K 586 Renal Failure 11/28/2010 OGLESBY DO, CAMERON K 586 Renal Failure 11/28/2010 STACEY GAMINO PA-C 5 86 Renal Failure 11/28/2010 OGLESBY DO, CAMERON K 586 Renal Failure 11/28/2010 OGLESBY DO, CAMERON K 586 Renal Failure 11/28/2010 OGLESBY DO, CAMERON K 586 Renal Failure 11/28/2010 OGLESBY DO, CAMERON K 586 Renal Failure 11/28/2010 OGLESBY DO, CAMERON K 586 Renal Failure 11/28/2010 OGLESBY DO, CAMERON K 586 Renal Failure 11/28/2010 BARNEY TAVERASN MAKSIM R 586 Renal Failure 11/28/2010 BARNEY LIND MAKSIM R 586 Renal Failure 11/28/2010 OGLESBY [...] 586 Renal Failure 11/28/2010 STACEY GAMINO PA-C 5 86 Renal Failure 11/28/2010 KEIRA FORD PSYD 586 Renal Failure 12/09/2010 787.20 Joon n On Swallowing 12/09/2010 787.20 Joon n On Swallowing 12/09/2010 OGLESBY DO, CAMERON K 787.20 Pain On Swallowing 12/09/2010 OGLESBY DO, CAMERON K 787.20 Pain On Swallowing 12/09/2010 787.20 Joon n On Swallowing 12/09/2010 OGLESBY DO, CAMERON K 787.20 Pain On Swallowing 12/09/2010 STACEY GAMINO PA-C 787.20 Pain On Swallowing 12/09/2010 787.20 Joon n On Swallowing 12/09/2010 787.20 Joon n On Swallowing 12/09/2010 787.20 Joon n On Swallowing 12/09/2010 OGLESBY DO, CAMERON K [...] K 787.20 Pain On Swallowing 12/09/2010 MAKSIM CORELY APRN R 787.20 Pain On Swallowing 12/09/2010 [...] Pain On Swallowing 12/09/2010 JORDAN MCDONALD APRN 787. 20 Pain On Swallowing 12/09/2010 STACEY GAMINO PA-C 787.20 Pain On Swallowing 12/09/2010 KEIRA FORD PSYD 787.20 Pain On Swallowing 12/22/2010 530.6 DIVE RTICULUM OF ESOPHAGUS ACQUIRED 12/22/2010 530.6 DIVE RTICULUM OF ESOPHAGUS ACQUIRED 12/22/2010 OGLESBY DO, CAMERON K 530.6 DIVERTICULUM OF ESOPHAGUS ACQUIRED 12/22/2010 OGLESBY DO, CAMERON K 530.6 DIVERTICULUM OF ESOPHAGUS ACQUIRED 12/22/2010 530.6 DIVE RTICULUM OF ESOPHAGUS ACQUIRED 12/22/2010 OGLESBY DO, CAMERON K 530.6 DIVERTICULUM OF ESOPHAGUS ACQUIRED 12/22/2010 STACEY GAMINO PA-C 530.6 DIVERTICULUM OF ESOPHAGUS ACQUIRED 12/22/2010 530.6 DIVE RTICULUM OF ESOPHAGUS ACQUIRED 12/22/2010 530.6 DIVE RTICULUM OF ESOPHAGUS ACQUIRED 12/22/2010 530.6 DIVE RTICULUM OF ESOPHAGUS ACQUIRED 12/22/2010 OGLESBY DO, CAMERON [...] 530.6 DIVERTICULUM OF ESOPHAGUS ACQUIRED 12/22/2010 CORLEY SPREADER, MAKSIM R 530.6 DIVERTICULUM OF ESOPHAGUS ACQUIRED 12/22/2010 CORLEY SPREADER, MAKSIM R 530.6 DIVERTICULUM OF ESOPHAGUS ACQUIRED [...] OF ESOPHAGUS ACQUIRED 12/22/2010 JORDAN MCDONALD APRN 530. 6 DIVERTICULUM OF ESOPHAGUS ACQUIRED 12/22/2010 STACEY GAMINO PA-C 530.6 DIVERTICULUM OF ESOPHAGUS ACQUIRED 12/22/2010 KEIRA FORD PSYD 530.6 DIVERTICULUM OF ESOPHAGUS ACQUIRED 12/26/2010 285.21 ANE JAIRON OF CHRONIC KIDNEY DISEASE 12/26/2010 285.21 ANE JAIRON OF CHRONIC KIDNEY DISEASE 12/26/2010 OGLESBY DO, CAMERON K 285.21 ANEMIA OF CHRONIC KIDNEY DISEASE 12/26/2010 OGLESBY DO, CAMERON K 285.21 ANEMIA OF CHRONIC KIDNEY DISEASE 12/26/2010 285.21 ANE JAIRON OF CHRONIC KIDNEY DISEASE 12/26/2010 OGLESBY DO CAMERON K 285.21 ANEMIA OF CHRONIC KIDNEY DISEASE 12/26/2010 STACEY GAMINO PA-C 285.21 ANEMIA OF CHRONIC KIDNEY DISEASE 12/26/2010 285.21 ANE JAIRON OF CHRONIC KIDNEY DISEASE 12/26/2010 285.21 ANE JAIRON OF CHRONIC KIDNEY DISEASE 12/26/2010 285.21 ANE JAIRON OF CHRONIC KIDNEY DISEASE 12/26/2010 OGLESBY DO [...] 285.21 ANEMIA OF CHRONIC KIDNEY DISEASE 12/26/2010 DIONTE CORLEY APRNIA R 285.21 ANEMIA OF CHRONIC KIDNEY DISEASE [...] CHRONIC KIDNEY DISEASE 12/26/2010 JORDAN MCDONALD APRN 285. 21 ANEMIA OF CHRONIC KIDNEY DISEASE 12/26/2010 STACEY GAMINO PA-C 285.21 ANEMIA OF CHRONIC KIDNEY DISEASE 12/26/2010 KEIRA FORD PSYD 285.21 ANEMIA OF CHRONIC KIDNEY DISEASE 01/03/2011 464.00 Acu te Laryngitis Without Obstruction 01/03/2011 780.79 Oth er Malaise And Fatigue 01/03/2011 464.00 Acu te Laryngitis Without Obstruction 01/03/2011 780.79 Oth er Malaise And Fatigue 01/03/2011 OGLESBY DO, CAMERON K 464.00 Acute Laryngitis Without Obstruction 01/03/2011 OGLESBY DO, CAMERON K 780.79 Other Malaise And Fatigue 01/03/2011 OGLESBY DO, CAMERON K 464.00 Acute Laryngitis Without Obstruction 01/03/2011 OGLESBY DO, CAMERON K 780.79 Other Malaise And Fatigue 01/03/2011 464.00 Acu te Laryngitis Without Obstruction 01/03/2011 780.79 Oth er Malaise And Fatigue 01/03/2011 OGLESBY DO, CAMERON K 464.00 Acute Laryngitis Without Obstruction 01/03/2011 OGLESBY DO, CAMERON K 780.79 Other Malaise And Fatigue 01/03/2011 STACEY GAMINO PA-C 464.00 Acute Laryngitis Without Obstruction 01/03/2011 STACEY GAMINO PA-C 780.79 Other Malaise And Fatigue 01/03/2011 464.00 Acu te Laryngitis Without Obstruction 01/03/2011 780.79 Oth er Malaise And Fatigue 01/03/2011 464.00 Acu te Laryngitis Without Obstruction 01/03/2011 780.79 Oth er Malaise And Fatigue 01/03/2011 464.00 Acu te Laryngitis Without Obstruction 01/03/2011 780.79 Oth er Malaise And Fatigue 01/03/2011 OGLESBY DO, CAMERON K 464.00 Acute Laryngitis Without Obstruction 01/03/2011 OGLESBY DO, CAMERON K 780.79 Other Malaise And Fatigue 01/03/2011 OGLESBY DO, CAMERON K 464.00 Acute Laryngitis Without Obstruction 01/03/2011 OGLESBY DO, CAMERON K 780.79 Other Malaise And Fatigue 01/03/2011 STACEY GAMINO PA-C 464.00 Acute Laryngitis Without Obstruction 01/03/2011 STACEY GAMINO PA-C 780.79 Other Malaise And Fatigue 01/03/2011 OGLESBY [...] 780.79 Other Malaise And Fatigue 01/03/2011 CORLEY SPREADER, MAKSIM R 464.00 Acute Laryngitis Without Obstruction 01/03/2011 CORLEY SPREADER, MAKSIM R 780.79 Other Malaise And Fatigue 01/03/2011 CORLEY SPREADER, MAKSIM R 464.00 Acute Laryngitis Without Obstruction 01/03/2011 CORLEY SPREADER, MAKSIM R 780.79 Other Malaise And Fatigue 01/03/2011 OGLESBY DO, CAMERON K 464.00 Acute Laryngitis Without Obstruction 01/03/2011 OGLEBSY DO, CAMERON K 780.79 Other Malaise And [...] Malaise And Fatigue 01/03/2011 KEIRA FORD PSYD L 464.00 Acute Laryngitis Without Obstruction 01/03/2011 KEIRA FORD PSYD L 780.79 Other Malaise And Fatigue 01/03/2011 OGLESBY DO, CAMERON K 464.00 Acute Laryngitis Without Obstruction 01/03/2011 OGLESBY DO, CAMERON K 780.79 Other Malaise And Fatigue 01/03/2011 JORDAN MCDONALD APRN 464. 00 Acute Laryngitis Without Obstruction 01/03/2011 JORDAN MCDONALD APRN 780. 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, UNSPEC, W CHR KD ST 01/15/2011 Ot 455.2 INT HEMRRHOID W COMP NEC 01/15/2011 Ot 530.11 REF LUX ESOPHAGITIS 01/15/2011 Ot 530.6 ACQ ESOPHAG DIVERTICULUM 01/15/2011 Ot 530.81 ESO PHAGEAL REFLUX 01/15/2011 Ot 535.50 UNS P GASTRITIS GASTRODUODENITIS W/O ME 01/15/2011 Ot 553.3 DIAP HRAGMATIC HERNIA 01/15/2011 Ot 558.9 RICKY NF GASTROENTERIT NEC 01/15/2011 Ot 584.9 ACUT E RENAL FAILURE, UNSPECIFIED 01/15/2011 Ot 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, UNSPECIFIED 01/15/2011 Ot 729.1 MYAL BENNETT AND MYOSITIS NOS 01/15/2011 Ot 782.3 EDEMA 01/15/2011 Ot V58.69 OTH MED,LT,CURRENT USE 01/17/2011 535.50 Uns pecified Gastritis And Gastroduodenitis (without Hemorrhage) 01/17/2011 535.50 Uns pecified Gastritis And Gastroduodenitis (without Hemorrhage) 01/17/2011 CAMERON OGLESBY DO 535.50 Unspecified Gastritis And Gastroduodenitis (without Hemorrhage) 01/17/2011 CAMERON OGLESBY DO 535.50 Unspecified Gastritis And Gastroduodenitis (without Hemorrhage) 01/17/2011 535.50 Uns pecified Gastritis And Gastroduodenitis (without Hemorrhage) 01/17/2011 CAMERON OGLESBY DO 535.50 Unspecified Gastritis And Gastroduodenitis (without Hemorrhage) 01/17/2011 STACEY GAMINO PA-C 535.50 Unspecified Gastritis And Gastroduodenitis (without He morrhage) 01/17/2011 535.50 Uns pecified Gastritis And Gastroduodenitis (without Hemorrhage) 01/17/2011 535.50 Uns pecified Gastritis And Gastroduodenitis (without Hemorrhage) 01/17/2011 535.50 Uns pecified Gastritis And Gastroduodenitis (without Hemorrhage) 01/17/2011 OGLESBY DO, CAMERON K 535.50 Unspecified Gastritis And Gastroduodenitis (without Hemorrhage) 01/17/2011 OGLESBY DO, CAMERON K 535.50 Unspecified Gastritis And Gastroduodenitis (without Hemorrhage) 01/17/2011 STACEY GAMINO PA-C 535.50 Unspecified Gastritis And Gastroduodenitis (without He morrhage) 01/17/2011 OGLESBY DO, CAMERON K 535.50 Unspecified Gastritis And Gastroduodenitis (without Hemorrhage) 01/17/2011 OGLESBY DO, CAMERON K 535.50 Unspecified Gastritis And Gastroduodenitis (without Hemorrhage) 01/17/2011 OGLESBY DO, CAMERON K 535.50 Unspecified Gastritis And Gastroduodenitis (without Hemorrhage) 01/17/2011 OGLESBY DO, CAMERON K 535.50 Unspecified Gastritis And Gastroduodenitis (without Hemorrhage) 01/17/2011 OGLESBY DO, CAMERON K 535.50 Unspecified Gastritis And Gastroduodenitis (without Hemorrhage) 01/17/2011 OGLESBY DO, CAMERON K 535.50 Unspecified Gastritis And Gastroduodenitis (without Hemorrhage) 01/17/2011 DIONTE CORLEY APRNIA R 535.50 Unspecified Gastritis And Gastroduodenitis (without He morrhage) 01/17/2011 DIONTE CORLEY APRNIA R 535.50 Unspecified Gastritis And Gastroduodenitis (without He morrhage) 01/17/2011 OGLESBY DO, CAMERON K 535.50 Unspecified Gastritis And Gastroduodenitis (without Hemorrhage) 01/17/2011 OGLESBY DO, CAMERON K 535.50 Unspecified Gastritis And Gastroduodenitis (without Hemorrhage) 01/17/2011 OGLESBY DO, CAMERON K 535.50 Unspecified Gastritis And Gastroduodenitis (without Hemorrhage) 01/17/2011 OGLESBY DO, CAMERON K 535.50 Unspecified Gastritis And Gastroduodenitis (without Hemorrhage) 01/17/2011 OGLESBY DO, CAMERON K 535.50 Unspecified Gastritis And Gastroduodenitis (without Hemorrhage) 01/17/2011 KEIRA FORD PSYD 535.50 Unspecified Gastritis And Gastroduodenitis (without He morrhage) 01/17/2011 OGLESBY DO, CAMERON K 535.50 Unspecified Gastritis And Gastroduodenitis (without Hemorrhage) 01/17/2011 JORDAN MCDONALD APRN 535. 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 01/24/2011 787.91 Yadira rrhea 01/24/2011 333.94 RES TLESS LEGS SYNDROME 01/24/2011 530.81 ESO PHAGEAL REFLUX 01/24/2011 585.3 IMPROVEMENT LEADER NORBERTO KIDNEY DISEASE STAGE 3 01/24/2011 787.91 Yadira rrhea 01/24/2011 OGLESBY DO, CAMERON K 333.94 RESTLESS [...] DO, CAMERON K 787.91 Diarrhea 01/24/2011 333.94 RES TLESS LEGS SYNDROME 01/24/2011 530.81 ESO PHAGEAL REFLUX 01/24/2011 585.3 IMPROVEMENT LEADER NORBERTO KIDNEY DISEASE STAGE 3 01/24/2011 787.91 Yadira rrhea 01/24/2011 OGLESBY DO, CAMERON K 333.94 RESTLESS [...] STACEY GAMINO PA-C 787.91 Diarrhea 01/24/2011 333.94 RES TLESS LEGS SYNDROME 01/24/2011 530.81 ESO PHAGEAL REFLUX 01/24/2011 585.3 IMPROVEMENT LEADER NORBERTO KIDNEY DISEASE STAGE 3 01/24/2011 787.91 Yadira rrhea 01/24/2011 333.94 RES TLESS LEGS SYNDROME 01/24/2011 530.81 ESO PHAGEAL REFLUX 01/24/2011 585.3 IMPROVEMENT LEADER NORBERTO KIDNEY DISEASE STAGE 3 01/24/2011 787.91 Yadira rrhea 01/24/2011 333.94 RES TLESS LEGS SYNDROME 01/24/2011 530.81 ESO PHAGEAL REFLUX 01/24/2011 585.3 IMPROVEMENT LEADER NORBERTO KIDNEY DISEASE STAGE 3 01/24/2011 787.91 Yadira rrhea 01/24/2011 OGLESBY DO, CAMERON K 333.94 RESTLESS [...] 01/24/2011 STACEY GAMINO PA-C 787.91 Diarrhea 01/24/2011 OGLESBY DO, CAMERON K [...] DO, CAMERON K 787.91 Diarrhea 01/24/2011 CORLEY SPREADER, MAKSIM R 333.94 RESTLESS LEGS SYNDROME 01/24/2011 CORLEY SPREADER, MAKSIM R 530.81 ESOPHAGEAL REFLUX 01/24/2011 CORLEY SPREADER, MAKSIM R 585.3 CHRONIC KIDNEY DISEASE STAGE 3 01/24/2011 BARNEY SPREADER, MAKSIM R 787.91 Diarrhea 01/24/2011 CORLEY SPREADER, MAKSIM R 333.94 RESTLESS LEGS SYNDROME 01/24/2011 CORLEY SPREADER, MAKSIM R 530.81 ESOPHAGEAL REFLUX 01/24/2011 CORLEY SPREADER, MAKSIM R 585.3 CHRONIC KIDNEY DISEASE STAGE 3 01/24/2011 CORLEY SPREADER, MAKSIM R 787.91 Diarrhea 01/24/2011 OGLESBY DO, CAMERON K 333.94 RESTLESS LEGS SYNDROME 01/24/2011 OGLESBY DO, CAMERON K 530.81 ESOPHAGEAL REFLUX 01/24/2011 OGLESBY DO, CAMERON K 585.3 CHRONIC KIDNEY DISEASE STAGE 3 01/24/2011 OGLESBY DO, CAMERON K 787.91 Diarrhea 01/24/2011 OGLESBY DO, CAMERON K 333.94 RESTLESS LEGS SYNDROME 01/24/2011 OGLESBY DO, CAMERON K 530.81 ESOPHAGEAL REFLUX 01/24/2011 OGLEBSY DO, CAMERON K 585.3 CHRONIC KIDNEY DISEASE [...] 333.94 RESTLESS LEGS SYNDROME 01/24/2011 OGLESBY DO, CMAERON K 530.81 ESOPHAGEAL REFLUX 01/24/2011 OGLESBY DO, [...] K 787.91 Diarrhea 01/24/2011 JORDAN MCDONALD APRN 333. 94 RESTLESS LEGS SYNDROME 01/24/2011 JORDAN MCDONALD APRN 530. 81 ESOPHAGEAL REFLUX 01/24/2011 JORDAN MCDONALD APRN 585. 3 CHRONIC KIDNEY DISEASE STAGE 3 01/24/2011 JORDAN MCDONALD APRN 787. 91 Diarrhea 01/24/2011 STACEY GAMINO PA-C 333.94 RESTLESS LEGS SYNDROME 01/24/2011 STACEY GAMINO PA-C 530.81 ESOPHAGEAL REFLUX 01/24/2011 STACEY GAMINO PA-C 585.3 CHRONIC KIDNEY DISEASE STAGE 3 01/24/2011 STACEY GAMINO PA-C 787.91 Diarrhea 01/24/2011 KEIRA FORD PSYD L 333.94 RESTLESS LEGS SYNDROME 01/24/2011 KEIRA FORD PSYD L 530.81 ESOPHAGEAL REFLUX 01/24/2011 KEIRA FORD PSYD 585.3 CHRONIC KIDNEY DISEASE STAGE 3 01/24/2011 KEIRA FORD PSYD L 787.91 Diarrhea 02/10/2011 Ot 490 BRONCH ITIS NOS 02/10/2011 Ot 786.2 COUGH 02/21/2011 458.0 Orth ostatic Hypotension 02/21/2011 458.0 Orth ostatic Hypotension 02/21/2011 OGLESBY DO, CAMERON K 458.0 Orthostatic Hypotension 02/21/2011 OGLESBY DO, CAMERON K 458.0 Orthostatic Hypotension 02/21/2011 458.0 Orth ostatic Hypotension 02/21/2011 OGLESBY DO, CAMERON K 458.0 Orthostatic Hypotension 02/21/2011 STACEY GAMINO PA-C 458.0 Orthostatic Hypotension 02/21/2011 458.0 Orth ostatic Hypotension 02/21/2011 458.0 Orth ostatic Hypotension 02/21/2011 458.0 Orth ostatic Hypotension 02/21/2011 OGLESBY DO, CAMERON K 458.0 Orthostatic Hypotension 02/21/2011 OGLESBY DO, CMAERON K 458.0 Orthostatic Hypotension 02/21/2011 STACEY GAMINO PA-C 458.0 Orthostatic Hypotension 02/21/2011 OGLESBY DO, CAMERON K 458.0 Orthostatic Hypotension 02/21/2011 OGLESBY DO, CAMERON K 458.0 Orthostatic Hypotension 02/21/2011 OGLESBY DO, CAMERON K 458.0 Orthostatic Hypotension 02/21/2011 OGLESBY DO, CAMERON K 458.0 Orthostatic Hypotension 02/21/2011 OGLESBY DO, CAMERON K 458.0 Orthostatic Hypotension 02/21/2011 OGLESBY DO, CAMERON K 458.0 Orthostatic Hypotension 02/21/2011 DIONTE CORLEY APRNIA R 458.0 Orthostatic Hypotension 02/21/2011 BARNEY SPREADER, MAKSIM R 458.0 Orthostatic Hypotension 02/21/2011 OGLESBY DO, CAMERON K 458.0 Orthostatic Hypotension 02/21/2011 OGLESBY DO, CAMERON K 458.0 Orthostatic Hypotension 02/21/2011 OGLESBY DO, CAMERON K 458.0 Orthostatic Hypotension 02/21/2011 OGLESBY DO, CAMERON K 458.0 Orthostatic Hypotension 02/21/2011 OGLESBY DO, CAMERON K 458.0 Orthostatic Hypotension 02/21/2011 KEIRA FORD PSYD 458.0 Orthostatic Hypotension 02/21/2011 OGLESBY DO, CAMERON K 458.0 Orthostatic Hypotension 02/21/2011 JORDAN MCDONALD APRN 458. 0 Orthostatic Hypotension 02/21/2011 STACEY GAMINO PA-C 458.0 Orthostatic Hypotension 02/21/2011 KEIRA FORD PSYD 458.0 Orthostatic Hypotension 03/23/2011 276.50 Vol ume Depletion Unspecified 03/23/2011 461.9 Sinu sitis Acute 03/23/2011 276.50 Vol ume Depletion Unspecified 03/23/2011 461.9 Sinu sitis Acute 03/23/2011 OGLESBY DO, CAMERON K 276.50 Volume Depletion Unspecified 03/23/2011 OGLESBY DO, CAMERON K 461.9 Sinusitis Acute 03/23/2011 OGLESBY DO, CAMERON K 276.50 Volume Depletion Unspecified 03/23/2011 OGLESBY DO, CAMERON K 461.9 Sinusitis Acute 03/23/2011 276.50 Vol ume Depletion Unspecified 03/23/2011 461.9 Sinu sitis Acute 03/23/2011 OGLESBY DO, CAMERON K 276.50 Volume Depletion Unspecified 03/23/2011 OGLESBY DO, CAMERON K 461.9 Sinusitis Acute 03/23/2011 STACEY GAMINO PA-C 276.50 Volume Depletion Unspecified 03/23/2011 STACEY GAMINO PA-C 461.9 Sinusitis Acute 03/23/2011 276.50 Vol ume Depletion Unspecified 03/23/2011 461.9 Sinu sitis Acute 03/23/2011 276.50 Vol ume Depletion Unspecified 03/23/2011 461.9 Sinu sitis Acute 03/23/2011 276.50 Vol ume Depletion Unspecified 03/23/2011 461.9 Sinu sitis Acute 03/23/2011 OGLESBY DO, CAMERON K 276.50 [...] CAMERON K 461.9 Sinusitis Acute 03/23/2011 CORLEY SPREADER, MAKSIM R 276.50 Volume Depletion Unspecified 03/23/2011 CORLEY SPREADER, MAKSIM R 461.9 Sinusitis Acute 03/23/2011 CORLEY SPREADER, MAKSIM R 276.50 Volume Depletion Unspecified 03/23/2011 CORLEY SPREADER, MAKSIM R 461.9 Sinusitis Acute 03/23/2011 OGLESBY [...] KEIRA FORD PSYD L 461.9 Sinusitis Acute 03/23/2011 OGLESBY DO, CAMERON K 276.50 Volume Depletion Unspecified 03/23/2011 OGLESBY DO, CAMERON K 461.9 Sinusitis Acute 03/23/2011 JORDAN MCDONALD APRN 276. 50 Volume Depletion Unspecified 03/23/2011 JORDAN MCDONALD APRN 461. 9 Sinusitis Acute 03/23/2011 STACEY GAMINO PA-C 276.50 Volume Depletion Unspecified 03/23/2011 STACEY GAMINO PA-C 461.9 Sinusitis Acute 03/23/2011 KEIRA FORD PSYD L 276.50 Volume Depletion Unspecified 03/23/2011 KEIRA FORD PSYD L 461.9 Sinusitis Acute 04/20/2011 382.9 Unsp ecified Otitis Media 04/20/2011 382.9 Unsp ecified Otitis Media 04/20/2011 OGLESBY DO, CAMERON K 382.9 Unspecified Otitis Media 04/20/2011 OGLESBY DO, CAMERON K 382.9 Unspecified Otitis Media 04/20/2011 382.9 Unsp ecified Otitis Media 04/20/2011 OGLESBY DO, CAMERON K 382.9 Unspecified Otitis Media 04/20/2011 STACEY GAMINO PA-C 382.9 Unspecified Otitis Media 04/20/2011 382.9 Unsp ecified Otitis Media 04/20/2011 382.9 Unsp ecified Otitis Media 04/20/2011 382.9 Unsp ecified Otitis Media 04/20/2011 OGLESBY DO, CAMERON K [...] CAMERON K 382.9 Unspecified Otitis Media 04/20/2011 DIONTE CORLEY APRNIA R 382.9 Unspecified Otitis Media 04/20/2011 BARNEY LIND, MAKSIM R 382.9 Unspecified Otitis Media 04/20/2011 OGLESBY [...] Unspecified Otitis Media 04/20/2011 JORDAN MCDONALD APRN 382. 9 Unspecified Otitis Media 04/20/2011 STACEY GAMINO PA-C [...] DO, CAMERON K 786.2 Cough 05/19/2011 CORLEY SPREADER, MAKSIM R 782.3 EDEMA 05/19/2011 CORLEY SPREADER, MAKSIM R 786.2 Cough 05/19/2011 CORLEY SPREADER, MAKSIM R 782.3 EDEMA 05/19/2011 CORLEY SPREADER, MAKSIM R 786.2 Cough 05/19/2011 OGLESBY DO, [...] PSYD 782.3 EDEMA 05/19/2011 KEIRA FORD PSYD L 786.2 Cough 05/19/2011 OGLESBY DO, CAMERON K 782.3 EDEMA 05/19/2011 OGLESBY DO, CAMERON K 786.2 Cough 05/19/2011 JORDAN MCDONALD APRN 782. 3 EDEMA 05/19/2011 JORDAN MCDONALD APRN 786. 2 Cough 05/19/2011 STACEY GAMINO PA-C 782.3 EDEMA 05/19/2011 STACEY GAMINO PA-C 786.2 Cough 05/19/2011 KEIRA FORD PSYD 782.3 EDEMA 05/19/2011 KEIRA FORD PSYD L 786.2 Cough 06/23/2011 311 DEPRES SIVE DISORDER NOT ELSEWHERE CLASSIFIED 06/23/2011 780.52 ins omnia 06/23/2011 V41.0 Visi on Problems 06/23/2011 V58.69 WILTON G-TERM (CURRENT) USE OF OTHER MEDICATIONS 06/23/2011 311 DEPRES SIVE DISORDER NOT ELSEWHERE CLASSIFIED 06/23/2011 780.52 ins omnia 06/23/2011 V41.0 Visi on Problems 06/23/2011 V58.69 WILTON G-TERM (CURRENT) USE OF OTHER MEDICATIONS 06/23/2011 CAMERON OGLESBY DO K 311 DEPRESSIVE DISORDER NOT ELSEWHERE CLASSIFIED 06/23/2011 CAMERON OGLESBY DO 780.52 insomnia 06/23/2011 MENDEL WASSERMAN CAMERON K V41.0 Vision Problems 06/23/2011 OGLESBY DO CAMERON K V58.69 LONG-TERM (CURRENT) USE OF OTHER MEDICATIONS 06/23/2011 CAMERON OGLESBY DO K 311 DEPRESSIVE DISORDER NOT ELSEWHERE CLASSIFIED 06/23/2011 CAMERON OGLESBY DO K 780.52 insomnia 06/23/2011 OGLESBY DO CAMERON K V41.0 Vision Problems 06/23/2011 MENDEL WASSERMAN CAMERON K V58.69 LONG-TERM (CURRENT) USE OF OTHER MEDICATIONS 06/23/2011 311 DEPRES SIVE DISORDER NOT ELSEWHERE CLASSIFIED 06/23/2011 780.52 ins omnia 06/23/2011 V41.0 Visi on Problems 06/23/2011 V58.69 WILTON G-TERM (CURRENT) USE OF OTHER MEDICATIONS 06/23/2011 ESTHELA OGLESBY DOA K 311 DEPRESSIVE DISORDER NOT ELSEWHERE CLASSIFIED 06/23/2011 CAMERON OGLESBY DO K 780.52 insomnia 06/23/2011 ESTHELA OGLESBY DOA K V41.0 Vision Problems 06/23/2011 ESTHELA OGLESBY DOA K V58.69 LONG-TERM (CURRENT) USE OF OTHER MEDICATIONS 06/23/2011 STACEY GAMINO PA-C 3 11 DEPRESSIVE DISORDER NOT ELSEWHERE CLASSIFIED 06/23/2011 STACEY GAMINO PA-C 780.52 insomnia 06/23/2011 STACEY GAMINO PA-C V41.0 Vision Problems 06/23/2011 STACEY GAMINO PA-C V58.69 LONG-TERM (CURRENT) USE OF OTHER MEDICATIONS 06/23/2011 311 DEPRES SIVE DISORDER NOT ELSEWHERE CLASSIFIED 06/23/2011 780.52 ins omnia 06/23/2011 V41.0 Visi on Problems 06/23/2011 V58.69 WILTON G-TERM (CURRENT) USE OF OTHER MEDICATIONS 06/23/2011 311 DEPRES SIVE DISORDER NOT ELSEWHERE CLASSIFIED 06/23/2011 780.52 ins omnia 06/23/2011 V41.0 Visi on Problems 06/23/2011 V58.69 WILTON G-TERM (CURRENT) USE OF OTHER MEDICATIONS 06/23/2011 311 DEPRES SIVE DISORDER NOT ELSEWHERE CLASSIFIED 06/23/2011 780.52 ins omnia 06/23/2011 V41.0 Visi on Problems 06/23/2011 V58.69 WILTON G-TERM (CURRENT) USE OF OTHER MEDICATIONS 06/23/2011 OGLESBY DO CAMERON K 311 DEPRESSIVE DISORDER NOT ELSEWHERE CLASSIFIED 06/23/2011 MENDEL WASSERMAN CAMERON Carolee 780.52 insomnia 06/23/2011 MENDEL WASSERMAN CAMERON K V41.0 Vision Problems 06/23/2011 OGLESBY DO CAMERON K V58.69 LONG-TERM (CURRENT) USE OF OTHER MEDICATIONS 06/23/2011 MENDEL WASSERMAN CAMERON K 311 DEPRESSIVE DISORDER NOT ELSEWHERE CLASSIFIED 06/23/2011 CAMERON OGLESBY DO 780.52 insomnia 06/23/2011 MENDEL WASSERMAN CAMERON K V41.0 Vision Problems 06/23/2011 OGLESBY DO CAMERON K V58.69 LONG-TERM (CURRENT) USE OF OTHER MEDICATIONS 06/23/2011 STACEY GAMINO PA-C 3 11 DEPRESSIVE DISORDER NOT ELSEWHERE CLASSIFIED 06/23/2011 STACEY GAMINO PA-C 780.52 insomnia 06/23/2011 STACEY GAMINO PA-C V41.0 Vision Problems 06/23/2011 STACEY GAMINO PA-C V58.69 LONG-TERM (CURRENT) USE OF OTHER MEDICATIONS 06/23/2011 MENDEL WASSERMAN CAMERON K 311 DEPRESSIVE DISORDER NOT ELSEWHERE CLASSIFIED 06/23/2011 MENDEL WASSERMAN CAMERON K 780.52 insomnia 06/23/2011 OGLESBY DO CAMERON K V41.0 Vision Problems 06/23/2011 MENDEL WASSERMAN CAMERON K V58.69 LONG-TERM (CURRENT) USE OF OTHER MEDICATIONS 06/23/2011 MENDEL WASSERMAN CAMERON K 311 DEPRESSIVE DISORDER NOT ELSEWHERE CLASSIFIED 06/23/2011 OGLESBY DO CAMERON K 780.52 insomnia 06/23/2011 OGLESBY DO CAMERON K V41.0 Vision Problems 06/23/2011 OGLESBY DO CAMERON K V58.69 LONG-TERM (CURRENT) USE OF OTHER MEDICATIONS 06/23/2011 OGLESBY DO CAMERON K 311 DEPRESSIVE DISORDER NOT ELSEWHERE CLASSIFIED 06/23/2011 OGLSEBY DO CAMERON K 780.52 insomnia 06/23/2011 OGLESBY [...] DO CAMERON K 780.52 insomnia 06/23/2011 OGLESBY DO CAMERON K V41.0 Vision Problems 06/23/2011 OGLESBY DO CAMERON K V58.69 LONG-TERM (CURRENT) USE OF OTHER MEDICATIONS 06/23/2011 BARNEY SPREADERDIONTE EllisIA R 311 DEPRESSIVE DISORDER NOT ELSEWHERE CLASSIFIED 06/23/2011 DIONTE CORLEY APRNIA R 780.52 insomnia 06/23/2011 BARNEY SPREADER MAKSIM R V41.0 Vision Problems 06/23/2011 CORLEY SPREADER MAKSIM R V58.69 LONG-TERM (CURRENT) USE OF OTHER MEDICATIONS 06/23/2011 BARNEY SPREADER MAKSIM R 311 DEPRESSIVE DISORDER NOT ELSEWHERE CLASSIFIED 06/23/2011 BARNEY SPREADER MAKSIM R 780.52 insomnia 06/23/2011 BARNEY SPREADER MAKSIM R V41.0 Vision Problems 06/23/2011 BARNEY SPREADER MAKSIM R V58.69 LONG-TERM (CURRENT) USE OF OTHER MEDICATIONS 06/23/2011 OGLESBY DO CAMERON K 311 DEPRESSIVE DISORDER NOT ELSEWHERE CLASSIFIED 06/23/2011 OGLESBY DO CAMERON K 780.52 insomnia 06/23/2011 OGLESBY DO CAMERON K V41.0 Vision Problems 06/23/2011 OGLESBY DO CAMERON K V58.69 LONG-TERM (CURRENT) USE OF OTHER MEDICATIONS 06/23/2011 OGLESBY DO CAMERON K 311 DEPRESSIVE DISORDER NOT ELSEWHERE CLASSIFIED 06/23/2011 OGLESBY DO CAMERON K 780.52 insomnia 06/23/2011 OGLESBY DO CAMERON K V41.0 Vision Problems 06/23/2011 OGLESBY DO CAMERON K V58.69 LONG-TERM (CURRENT) USE OF OTHER MEDICATIONS 06/23/2011 OGLESBY DO CAMERON K 311 DEPRESSIVE DISORDER NOT ELSEWHERE CLASSIFIED 06/23/2011 OGLESBY DO CAMERON K 780.52 insomnia 06/23/2011 OGLESBY DO CAMERON K V41.0 Vision Problems 06/23/2011 OGLESBY DO CAMERON K V58.69 LONG-TERM (CURRENT) USE OF OTHER MEDICATIONS 06/23/2011 OGLESBY DO CAMERON K 311 DEPRESSIVE DISORDER NOT ELSEWHERE CLASSIFIED 06/23/2011 MENDEL WASSERMAN CAMERON K 780.52 insomnia 06/23/2011 OGLESBY DO CAMERON K V41.0 Vision Problems 06/23/2011 OGLESBY DO CAEMRON K V58.69 LONG-TERM (CURRENT) USE OF OTHER MEDICATIONS 06/23/2011 OGLESBY DO CAMERON K 311 DEPRESSIVE DISORDER NOT ELSEWHERE CLASSIFIED 06/23/2011 MENDEL WASSERMAN CAMERON K 780.52 insomnia 06/23/2011 OGLESBY DO CAMERON K V41.0 Vision Problems 06/23/2011 OGLESBY DO CAMERON K V58.69 LONG-TERM (CURRENT) USE OF OTHER MEDICATIONS 06/23/2011 KEIRA FORD PSYD 311 DEPRESSIVE DISORDER NOT ELSEWHERE CLASSIFIED 06/23/2011 KEIRA FORD PSYD 780.52 insomnia 06/23/2011 KEIRA FORD PSYD L V41.0 Vision Problems 06/23/2011 KEIRA FORD PSYD L V58.69 LONG-TERM (CURRENT) USE OF OTHER MEDICATIONS 06/23/2011 OGLESBY DO CAMERON K 311 DEPRESSIVE DISORDER NOT ELSEWHERE CLASSIFIED 06/23/2011 OGLESBY DO CAMERON K 780.52 insomnia 06/23/2011 OGLESBY DO CAMERON K V41.0 Vision Problems 06/23/2011 OGLESBY DO CAMERON K V58.69 LONG-TERM (CURRENT) USE OF OTHER MEDICATIONS 06/23/2011 JORDAN MCDONALD APRN 311 DEPRESSIVE DISORDER NOT ELSEWHERE CLASSIFIED 06/23/2011 JORDAN MCDONALD APRN 780. 52 insomnia 06/23/2011 JORDAN MCDONALD APRN V41. 0 Vision Problems 06/23/2011 JORDAN MCDONALD APRN V58. 69 LONG-TERM (CURRENT) USE OF OTHER MEDICATIONS 06/23/2011 STACEY GAMINO PA-C 3 11 DEPRESSIVE DISORDER NOT ELSEWHERE CLASSIFIED 06/23/2011 STACEY [...] 309.24 AD ADJ D/O W ANXIETY 07/21/2011 MAKSIM CORLEY APRN R 309.24 AD ADJ D/O W ANXIETY 07/21/2011 MAKSIM CORLEY APRN R 309.24 AD ADJ D/O W ANXIETY [...] 309.24 AD ADJ D/O W ANXIETY 07/21/2011 MENDEL WASSERMAN CAMERON K 309.24 AD ADJ D/O W ANXIETY 07/21/2011 JORDAN MCDONALD APRN 309. 24 AD ADJ D/O W ANXIETY 07/21/2011 STACEY GAMINO PA-C 309.24 AD ADJ D/O W ANXIETY 07/21/2011 KEIRA FORD PSYD 309.24 AD ADJ D/O W ANXIETY 10/15/2011 Ot 280.9 IRON DEFIC ANEMIA NOS 10/15/2011 Ot 285.21 ANE JAIRON IN CHRONIC KIDNEY DISEASE 10/15/2011 Ot 585.3 IMPROVEMENT LEADER NORBERTO KIDNEY DISEASE, STAGE III (MODER 10/15/2011 Ot [...] CAMERON K 300.00 AN ANXIETY UNSPEC 11/03/2011 JORDAN MCDONALD APRN 300. 00 AN ANXIETY UNSPEC 11/03/2011 STACEY GAMINO PA-C [...] CAMERON K 528.2 Oral Aphthae 11/07/2011 CORLEY SPREADER, MAKSIM R 528.2 Oral Aphthae 11/07/2011 CORLEY SPREADER, MAKSIM R 528.2 Oral Aphthae 11/07/2011 OGLESBY [...] 528.2 Oral Aphthae 11/07/2011 JORDAN MCDONALD APRN 528. 2 Oral Aphthae 11/07/2011 STACEY GAMINO PA-C 528.2 Oral Aphthae 11/07/2011 KEIRA FORD PSYD 528.2 Oral Aphthae 11/13/2011 719.46 JOON N IN JOINT INVOLVING LOWER LEG 11/13/2011 719.46 Joon n In Joint Involving Lower Leg 11/13/2011 OGLESBY DOESTHELAA K 719.46 Pain In Joint Involving Lower Leg 11/13/2011 OGLESBY DO, CAMERON K 719.46 Pain In Joint Involving Lower Leg 11/13/2011 719.46 Joon n In Joint Involving Lower Leg 11/13/2011 OGLESBY DOESTHELAA K 719.46 Pain In Joint Involving Lower Leg 11/13/2011 STACEY GAMINO PA-C 719.46 Pain In Joint Involving Lower Leg 11/13/2011 719.46 Joon n In Joint Involving Lower Leg 11/13/2011 719.46 Joon n In Joint Involving Lower Leg 11/13/2011 719.46 Joon n In Joint Involving Lower Leg 11/13/2011 OGLESBY [...] Pain In Joint Involving Lower Leg 11/13/2011 MAKSIM CORLEY APRN 719.46 Pain In Joint Involving Lower Leg 11/13/2011 MAKSIM CORLEY APRN R 719.46 Pain In Joint Involving Lower [...] Involving Lower Leg 11/13/2011 JORDAN MCDONALD APRN 719. 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 12/07/2011 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 12/07/2011 OGLESBY DO CAMERON K 717.7 CHONDROMALACIA OF PATELLA 12/07/2011 OGLESBY DO, CAMERON K 717.7 CHONDROMALACIA OF [place] 12/07/2011 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 12/07/2011 OGLESBY DO CAMERON K 717.7 CHONDROMALACIA OF PATELL[place] 12/07/2011 STACEY GAMINO PA-C 717.7 CHONDROMALACIA OF [place]LL[place] 12/07/2011 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 12/07/2011 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 12/07/2011 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 12/07/2011 OGLESBY DO, CAMERON K 717.7 CHONDROMALACIA OF [place]LL[place] 12/07/2011 OGLESBY DO, CAMERON K 717.7 CHONDROMALACIA OF [place]LL[place] 12/07/2011 STACEY GAMINO PA-C 717.7 CHONDROMALACIA OF [place]LL[place] 12/07/2011 OGLESBY DO CAMERON K 717.7 CHONDROMALACIA OF PATELL[place] 12/07/2011 OGLESBY DO CAMERON K 717.7 CHONDROMALACIA OF [place]LL[place] 12/07/2011 OGLESBY DO CAMERON K 717.7 CHONDROMALACIA OF [place]LL[place] 12/07/2011 OGLESBY DO, CAMERON K 717.7 CHONDROMALACIA OF [place] 12/07/2011 OGLESBY DO, CAMERON K 717.7 CHONDROMALACIA OF [place] 12/07/2011 OGLESBY DO, CAMERON K 717.7 CHONDROMALACIA OF [place] 12/07/2011 BARNEY LIND, MAKSIM R 717.7 CHONDROMALACIA OF [place] 12/07/2011 DIONTE COLREY APRNIA R 717.7 CHONDROMALACIA OF [place] 12/07/2011 OGLESBY [...] CHONDROMALACIA OF [place] 12/07/2011 JORDAN MCDONALD APRN 717. 7 CHONDROMALACIA OF [place] 12/07/2011 STACEY GAMINO PA-C 717.7 CHONDROMALACIA OF [place] 12/07/2011 KEIRA FORD PSYD 717.7 CHONDROMALACIA OF [place] 02/14/2012 V01.9 EXPO SURE TO CONTAGIOUS DISEASE 02/14/2012 V01.9 Expo sure To Contagious Disease 02/14/2012 OGLESBY DOESTHELAA K V01.9 Exposure To Contagious Disease 02/14/2012 OGLESBY DO CAMERON K V01.9 Exposure To Contagious Disease 02/14/2012 V01.9 Expo sure To Contagious Disease 02/14/2012 OGLESBY DO CAMERON K V01.9 Exposure To Contagious Disease 02/14/2012 STACEY GAMINO PA-C V01.9 Exposure To Contagious Disease 02/14/2012 V01.9 Expo sure To Contagious Disease 02/14/2012 V01.9 Expo sure To Contagious Disease 02/14/2012 V01.9 Expo sure To Contagious Disease 02/14/2012 OGLESBY DO, CAMERON [...] Exposure To Contagious Disease 02/14/2012 OGLESBY DO, CAMERNO K V01.9 Exposure To Contagious Disease 02/14/2012 OGLESBY DO, CAMERON K V01.9 Exposure To Contagious Disease 02/14/2012 MAKSIM CORLEY APRN V01.9 Exposure To Contagious Disease 02/14/2012 MAKSIM CORLEY APRN V01.9 Exposure To Contagious Disease 02/14/2012 OGLESBY [...] To Contagious Disease 02/14/2012 JORDAN MCDONALD APRN V01. 9 Exposure To Contagious Disease 02/14/2012 STACEY GAMINO PA-C V01.9 Exposure To Contagious Disease 02/14/2012 KEIRA FORD PSYD V01.9 Exposure To Contagious Disease 02/23/2012 466.0 BRON CHITIS, ACUTE 02/23/2012 466.0 Bron chitis, Acute 02/23/2012 OGLESBY DO, CAMERON K 466.0 Bronchitis, Acute 02/23/2012 OGLESBY DO, CAMERON K 466.0 Bronchitis, Acute 02/23/2012 466.0 Bron chitis, Acute 02/23/2012 OGLESBY DO, CAMERON K 466.0 Bronchitis, Acute 02/23/2012 STACEY GAMINO PA-C 466.0 Bronchitis, Acute 02/23/2012 466.0 Bron chitis, Acute 02/23/2012 466.0 Bron chitis, Acute 02/23/2012 466.0 Bron chitis, Acute 02/23/2012 OGLESBY DO, CAMERON K 466.0 [...] DO, CAMERON K 466.0 Bronchitis, Acute 02/23/2012 DIONTE CORLEY APRNIA R 466.0 Bronchitis, Acute 02/23/2012 CORLEY SPREADER, MAKSIM R 466.0 Bronchitis, Acute 02/23/2012 OGLESBY DO, CAMERON K 466.0 Bronchitis, Acute 02/23/2012 OGLESBY DO, CAMERON K 466.0 Bronchitis, Acute 02/23/2012 OGLESBY DO, CAMERON K 466.0 Bronchitis, Acute 02/23/2012 OGLESBY DO, CAMERON K 466.0 Bronchitis, Acute 02/23/2012 OGLESBY DO, CAMERON K 466.0 Bronchitis, Acute 02/23/2012 KEIRA FORD PSYD 466.0 Bronchitis, Acute 02/23/2012 OGLESBY DO, CAMERON K 466.0 Bronchitis, Acute 02/23/2012 JORDAN MCDONALD APRN 466. 0 Bronchitis, Acute 02/23/2012 STACEY GAMINO PA-C 466.0 Bronchitis, Acute 02/23/2012 KEIRA FORD PSYD 466.0 Bronchitis, Acute 04/02/2012 CAMERON OGLESBY DO 372.14 OTHER CHRONIC ALLERGIC CONJUNCTIVITIS 04/02/2012 CAMERON OGLESBY DO 780.79 OTHER MALAISE AND FATIGUE 04/02/2012 CAMERON OGLESBY DO 783.1 ABNORMAL WEIGHT GAIN 04/02/2012 372.14 OTH ER CHRONIC ALLERGIC CONJUNCTIVITIS 04/02/2012 780.79 OTH ER MALAISE AND FATIGUE 04/02/2012 783.1 ABNO RMAL WEIGHT GAIN 04/02/2012 CAMERON OGLESBY DO 372.14 OTHER CHRONIC ALLERGIC CONJUNCTIVITIS 04/02/2012 CAMERON OGLESBY DO 780.79 OTHER MALAISE AND FATIGUE 04/02/2012 CAMERON OGLESBY DO 783.1 ABNORMAL WEIGHT GAIN 04/02/2012 STACEY GAMINO PA-C 372.14 OTHER CHRONIC ALLERGIC CONJUNCTIVITIS 04/02/2012 STACEY GAMINO PA-C 780.79 OTHER MALAISE AND FATIGUE 04/02/2012 STACEY GAMINO PA-C 783.1 ABNORMAL WEIGHT GAIN 04/02/2012 372.14 OT ER CHRONIC ALLERGIC CONJUNCTIVITIS 04/02/2012 780.79 OT ER MALAISE AND FATIGUE 04/02/2012 783.1 ABNO RMAL WEIGHT GAIN 04/02/2012 372.14 OT ER CHRONIC ALLERGIC CONJUNCTIVITIS 04/02/2012 780.79 OT ER MALAISE AND FATIGUE 04/02/2012 783.1 ABNO RMAL WEIGHT GAIN 04/02/2012 372.14 OT ER CHRONIC ALLERGIC CONJUNCTIVITIS 04/02/2012 780.79 OT ER MALAISE AND FATIGUE 04/02/2012 783.1 ABNO RMAL WEIGHT GAIN 04/02/2012 CAMERON OGLESBY DO 372.14 [...] CAMERON K 783.1 ABNORMAL WEIGHT GAIN 04/02/2012 CORLEY SPREADER, MAKSIM R 372.14 OTHER CHRONIC ALLERGIC CONJUNCTIVITIS 04/02/2012 CORLEY SPREADER, MAKSIM R 780.79 OTHER MALAISE AND FATIGUE 04/02/2012 CORLEY SPREADER, MAKSIM R 783.1 ABNORMAL WEIGHT GAIN 04/02/2012 CORLEY SPREADER, MAKSIM R 372.14 OTHER CHRONIC ALLERGIC CONJUNCTIVITIS 04/02/2012 CORLEY SPREADER, MAKSIM R 780.79 OTHER MALAISE AND FATIGUE 04/02/2012 CORLEY SPREADER, MAKSIM R 783.1 ABNORMAL WEIGHT GAIN 04/02/2012 OGLESBY DO, CAMERON K 372.14 OTHER CHRONIC ALLERGIC CONJUNCTIVITIS 04/02/2012 OGLESBY DO, CAMERON K 780.79 OTHER MALAISE AND FATIGUE 04/02/2012 OGLESBY DO, CAMERON K 783.1 ABNORMAL WEIGHT GAIN 04/02/2012 OLGESBY DO, CAMERON K 372.14 OTHER CHRONIC ALLERGIC [...] ABNORMAL WEIGHT GAIN 04/02/2012 KEIRA FORD PSYD 372.14 OTHER CHRONIC ALLERGIC CONJUNCTIVITIS 04/02/2012 KEIRA FORD PSYD 780.79 OTHER MALAISE AND FATIGUE 04/02/2012 KEIRA FORD PSYD 783.1 ABNORMAL WEIGHT GAIN 04/02/2012 OGLESBY DO, CAMERON K 372.14 OTHER CHRONIC ALLERGIC CONJUNCTIVITIS 04/02/2012 OGLESBY DO, CAMERON K 780.79 OTHER MALAISE AND FATIGUE 04/02/2012 OGLESBY DO, CAMERON K 783.1 ABNORMAL WEIGHT GAIN 04/02/2012 JORDAN MCDONALD APRN 372. 14 OTHER CHRONIC ALLERGIC CONJUNCTIVITIS 04/02/2012 JORDAN MCDONALD APRN 780. 79 OTHER MALAISE AND FATIGUE 04/02/2012 JORDAN MCDONALD APRN 783. 1 ABNORMAL WEIGHT GAIN 04/02/2012 STACEY GAMINO PA-C [...] 268.9 UNSPECIFIED VITAMIN D DEFICIENCY 05/03/2012 268.9 UNSP ECIFIED VITAMIN D DEFICIENCY 05/03/2012 OGLESBY DO, CAMERON K 268.9 UNSPECIFIED VITAMIN D DEFICIENCY 05/03/2012 STACEY GAMINO PA-C 268.9 UNSPECIFIED VITAMIN D DEFICIENCY 05/03/2012 268.9 UNSP ECIFIED VITAMIN D DEFICIENCY 05/03/2012 268.9 UNSP ECIFIED VITAMIN D DEFICIENCY 05/03/2012 268.9 UNSP ECIFIED VITAMIN D DEFICIENCY 05/03/2012 OGLESBY DO, CAMERON [...] K 268.9 UNSPECIFIED VITAMIN D DEFICIENCY 05/03/2012 DIONTE [...] VITAMIN D DEFICIENCY 05/03/2012 KEIRA FORD PSYD L 268.9 UNSPECIFIED VITAMIN D DEFICIENCY 05/03/2012 OGLESBY DO, CAMERON K 268.9 UNSPECIFIED VITAMIN D DEFICIENCY 05/03/2012 JORDAN MCDONALD APRN 268. 9 UNSPECIFIED VITAMIN D DEFICIENCY 05/03/2012 STACEY GAMINO PA-C 268.9 UNSPECIFIED VITAMIN D DEFICIENCY 05/03/2012 KEIRA FORD PSYD 268.9 UNSPECIFIED VITAMIN D DEFICIENCY 06/03/2012 461.9 SINU SITIS ACUTE 06/03/2012 OGLESBY DO, CAMERON K 461.9 Sinusitis Acute 06/03/2012 STACEY GAMINO PA-C 461.9 Sinusitis Acute 06/03/2012 461.9 Sinu sitis Acute 06/03/2012 461.9 Sinu sitis Acute 06/03/2012 461.9 Sinu sitis Acute 06/03/2012 OGLESBY DO, CAMERON K 461.9 [...] CAMERON K 461.9 Sinusitis Acute 06/03/2012 BARNEY TAVERASN, MAKSIM R 461.9 Sinusitis Acute 06/03/2012 BARNEY SPREADER, MAKSIM R 461.9 Sinusitis Acute 06/03/2012 OGLESBY DO, CAMERON K 461.9 Sinusitis Acute 06/03/2012 OGLESBY DO, CAMERON K 461.9 Sinusitis Acute 06/03/2012 OGLESBY DO, CAMERON K 461.9 Sinusitis Acute 06/03/2012 OGLESBY DO, CAMERON K 461.9 Sinusitis Acute 06/03/2012 OGLESBY DO, CAMERON K 461.9 Sinusitis Acute 06/03/2012 KEIRA FORD PSYD 461.9 Sinusitis Acute 06/03/2012 OGLESBY DO, CAMERON K 461.9 Sinusitis Acute 06/03/2012 JORDAN MCDONALD APRN 461. 9 Sinusitis Acute 06/03/2012 STACEY GAMINO PA-C 461.9 Sinusitis Acute 06/03/2012 KEIRA FORD PSYD 461.9 Sinusitis Acute 06/13/2012 OGLESBY DO CAMERON K 414.00 CORONARY ATHEROSCLEROSIS OF UNSPECIFIED TYPE OF VESSEL [place] OR GRAFT 06/13/2012 OGLESBY DO CAMERON K 785.1 PALPITATIONS 06/13/2012 STACEY GAMINO PA-C 414.00 CORONARY ATHEROSCLEROSIS OF UNSPECIFIED TYPE OF VESSEL [place] OR GRAFT 06/13/2012 STACEY GAMINO PA-C 785.1 PALPITATIONS 06/13/2012 414.00 COR ONARY ATHEROSCLEROSIS OF UNSPECIFIED TYPE OF VESSEL [place] OR GRAFT 06/13/2012 785.1 PALP ITATIONS 06/13/2012 414.00 COR ONARY ATHEROSCLEROSIS OF UNSPECIFIED TYPE OF VESSEL [place] OR GRAFT 06/13/2012 785.1 PALP ITATIONS 06/13/2012 414.00 COR ONARY ATHEROSCLEROSIS OF UNSPECIFIED TYPE OF VESSEL [place] OR GRAFT 06/13/2012 785.1 PALP ITATIONS 06/13/2012 OGLESBY DO CAMERON K 414.00 CORONARY ATHEROSCLEROSIS OF UNSPECIFIED TYPE OF VESSEL [place] OR GRAFT 06/13/2012 OGLESBY DO, CAMERON K 785.1 PALPITATIONS 06/13/2012 STACEY GAMINO PA-C M 414.00 CORONARY ATHEROSCLEROSIS OF UNSPECIFIED TYPE OF VESSEL [place] OR GRAFT 06/13/2012 STACEY GAMINO PA-C 785.1 PALPITATIONS 06/13/2012 OGLESBY DO, CAMERON K 414.00 CORONARY ATHEROSCLEROSIS OF UNSPECIFIED TYPE OF VESSEL [place] OR GRAFT 06/13/2012 OGLESBY DO, CAMERON K 785.1 PALPITATIONS 06/13/2012 OGLESBY DO, CAMERON K 414.00 CORONARY ATHEROSCLEROSIS OF UNSPECIFIED TYPE OF VESSEL [place] OR GRAFT 06/13/2012 OGLESBY DO, CAMERON K 785.1 PALPITATIONS 06/13/2012 OGLESBY DO, CAMERON K 414.00 CORONARY ATHEROSCLEROSIS OF UNSPECIFIED TYPE OF VESSEL [place] OR GRAFT 06/13/2012 OGLESBY DO, CAMERON K 785.1 PALPITATIONS 06/13/2012 OGLESBY DO, CAMERON K 414.00 CORONARY ATHEROSCLEROSIS OF UNSPECIFIED TYPE OF VESSEL [place] OR GRAFT 06/13/2012 OGLESBY DO, CAMERON K 785.1 PALPITATIONS 06/13/2012 OGLESBY DO, CAMERON K 414.00 CORONARY ATHEROSCLEROSIS OF UNSPECIFIED TYPE OF VESSEL [place] OR GRAFT 06/13/2012 OGLESBY DO, CAMERON K 785.1 PALPITATIONS 06/13/2012 OGLESBY DO, CAMERON K 414.00 CORONARY ATHEROSCLEROSIS OF UNSPECIFIED TYPE OF VESSEL [place] OR GRAFT 06/13/2012 OGLESBY DO, CAMERON K 785.1 PALPITATIONS 06/13/2012 BARNEY SPREADER, MAKSIM R 414.00 CORONARY ATHEROSCLEROSIS OF UNSPECIFIED TYPE OF VESSEL [place] OR GRAFT 06/13/2012 CORLEY SPREADER, MAKSIM R 785.1 PALPITATIONS 06/13/2012 BARNEY SPREADER, MAKSIM R 414.00 CORONARY ATHEROSCLEROSIS OF UNSPECIFIED TYPE OF VESSEL [place] OR GRAFT 06/13/2012 BARNEY SPREADER, MAKSIM R 785.1 PALPITATIONS 06/13/2012 OGLESBY DO, CAMERON K 414.00 CORONARY ATHEROSCLEROSIS OF UNSPECIFIED TYPE OF VESSEL [place] OR GRAFT 06/13/2012 OGLESBY DO, CAMERON K 785.1 PALPITATIONS 06/13/2012 OGLESBY DO, CAMERON K 414.00 CORONARY ATHEROSCLEROSIS OF UNSPECIFIED TYPE OF VESSEL [place] OR GRAFT 06/13/2012 OGLESBY DO, CAMERON K 785.1 PALPITATIONS 06/13/2012 OGLESBY DO, CAMERON K 414.00 CORONARY ATHEROSCLEROSIS OF UNSPECIFIED TYPE OF VESSEL [place] OR GRAFT 06/13/2012 OGLESBY DO, CAMERON K 785.1 PALPITATIONS 06/13/2012 OGLESBY DO, CAMERON K 414.00 CORONARY ATHEROSCLEROSIS OF UNSPECIFIED TYPE OF VESSEL [place] OR GRAFT 06/13/2012 OGLESBY DO, CAMERON K 785.1 PALPITATIONS 06/13/2012 OGLESBY DO, CAMERON K 414.00 CORONARY ATHEROSCLEROSIS OF UNSPECIFIED TYPE OF VESSEL [place] OR GRAFT 06/13/2012 OGLESBY DO, CAMERON K 785.1 PALPITATIONS 06/13/2012 KEIRA FORD PSYD L 414.00 CORONARY ATHEROSCLEROSIS OF UNSPECIFIED TYPE OF VESSEL [place] OR GRAFT 06/13/2012 KEIRA FORD PSYD ANN L 785.1 PALPITATIONS 06/13/2012 OGLESBY DO, CAMERON K 414.00 CORONARY ATHEROSCLEROSIS OF UNSPECIFIED TYPE OF VESSEL [place] OR GRAFT 06/13/2012 OGLESBY DO, CAMERON K 785.1 PALPITATIONS 06/13/2012 MCDONALD SPREADER, JORDAN D 414. 00 CORONARY ATHEROSCLEROSIS OF UNSPECIFIED TYPE OF VESSEL [place] OR GRAFT 06/13/2012 JRODAN MCDONALD APRN 785. 1 PALPITATIONS 06/13/2012 STACEY GAMINO PA-C 414.00 CORONARY ATHEROSCLEROSIS OF UNSPECIFIED TYPE OF VESSEL [place] OR GRAFT 06/13/2012 STACEY GAMINO PA-C M 785.1 PALPITATIONS 06/13/2012 KEIRA FORD PSYD L 414.00 CORONARY ATHEROSCLEROSIS OF UNSPECIFIED TYPE OF VESSEL [place] OR GRAFT 06/13/2012 KEIRA FORD PSYD L 785.1 PALPITATIONS 07/17/2012 STACEY GAMINO PA-C M 427.9 ARRHYTHMIA, CARDIAC (SINUS) 07/17/2012 427.9 ARRH YTHMIA, CARDIAC (SINUS) 07/17/2012 427.9 ARRH YTHMIA, CARDIAC (SINUS) 07/17/2012 427.9 ARRH YTHMIA, CARDIAC (SINUS) 07/17/2012 OGLESBY DO, CAMERON K 427.9 ARRHYTHMIA, CARDIAC (SINUS) 07/17/2012 STACEY GAMINO PA-C M 427.9 ARRHYTHMIA, CARDIAC (SINUS) 07/17/2012 OGLESBY DO, CAMERON K 427.9 ARRHYTHMIA, CARDIAC (SINUS) 07/17/2012 OGLESBY DO, CAMERON K 427.9 ARRHYTHMIA, CARDIAC (SINUS) 07/17/2012 OGLESBY DO, CAMERON K 427.9 ARRHYTHMIA, CARDIAC (SINUS) 07/17/2012 OGLESBY DO, CAMERON K 427.9 ARRHYTHMIA, CARDIAC (SINUS) 07/17/2012 OGLESBY DO, CAMERON K 427.9 ARRHYTHMIA, CARDIAC (SINUS) 07/17/2012 OGLESBY DO, CAMERON K 427.9 ARRHYTHMIA, CARDIAC (SINUS) 07/17/2012 BARNEY SPREADER, MAKSIM R 427.9 ARRHYTHMIA, CARDIAC (SINUS) 07/17/2012 BARNEY SPREADER, MAKSIM R 427.9 ARRHYTHMIA, CARDIAC (SINUS) 07/17/2012 [...] ARRHYTHMIA, CARDIAC (SINUS) 07/17/2012 JORDAN MCDONALD APRN 427. 9 ARRHYTHMIA, CARDIAC (SINUS) 07/17/2012 STACEY GAMINO PA-C 427.9 ARRHYTHMIA, CARDIAC (SINUS) 07/17/2012 KEIRA FORD PSYD 427.9 ARRHYTHMIA, CARDIAC (SINUS) 08/09/2012 493.90 AST HMA UNSPECIFIED 08/09/2012 493.90 AST HMA UNSPECIFIED 08/09/2012 493.90 AST HMA UNSPECIFIED 08/09/2012 OGLESBY DO, CAMERON K 493.90 [...] CORLEY APRN R 493.90 ASTHMA UNSPECIFIED 08/09/2012 MAKSIM CORLEY APRN [...] 493.90 ASTHMA UNSPECIFIED 08/09/2012 JORDAN MCDONALD APRN 493. 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 81 SECONDARY HYPERPARATHYROIDISM (OF RENAL ORIGIN) 09/04/2012 JORDAN MCDONALD APRN 791. 0 PROTEINURIA 09/04/2012 STACEY GAMINO PA-C 588.81 SECONDARY [...] UNSPECIFIED DERANGEMENT OF MEDIAL MENISCUS 12/26/2012 CORLEY SPREADER, MAKSIM R 717.3 OTHER AND UNSPECIFIED DERANGEMENT OF MEDIAL MENISCUS 12/26/2012 CORLEY SPREADER, MAKSIM R 717.3 OTHER AND UNSPECIFIED DERANGEMENT [...] OF MEDIAL MENISCUS 12/26/2012 JORDAN MCDONALD APRN 717. 3 OTHER AND UNSPECIFIED DERANGEMENT OF MEDIAL MENISCUS [...] K 625.6 STRESS INCONTINENCE FEMALE 02/27/2013 BARNEY SPREADER, MAKSIM R 625.6 STRESS INCONTINENCE FEMALE 02/27/2013 CORLEY SPREADER, MAKSIM R 625.6 STRESS INCONTINENCE FEMALE 02/27/2013 [...] STRESS INCONTINENCE FEMALE 02/27/2013 JORDAN MCDONALD APRN 625. 6 STRESS INCONTINENCE FEMALE 02/27/2013 HANNY HARTLEY, STACEY [...] R 585.4 CHRONIC KIDNEY DISEASE STAGE IV (SEVERE) 08/22/2013 LATISHA CORLEY APRNRICIA R 784.0 HEADACHE 08/22/2013 LATISHA CORLEY APRNRICIA R 585.4 CHRONIC KIDNEY DISEASE STAGE IV (SEVERE) 08/22/2013 BARNEY TAVERASN MAKSIM R 784.0 HEADACHE 08/22/2013 O[place]ESBY DO, CAMERON K 585.4 CHRONIC KIDNEY DISEASE STAGE IV (SEVERE) 08/22/2013 O[place]ES[place] DO, CAMERON K 784.0 HEADACHE 08/22/2013 OGLESBY DO, CAMERON K 585.4 CHRONIC KIDNEY DISEASE STAGE IV (SEVERE) 08/22/2013 OGLESBY DO, CMAERON K 784.0 HEADACHE 08/22/2013 OGLESBY DO, CAMERON [...] PSYD 585.4 CHRONIC KIDNEY DISEASE STAGE IV (SEVERE) 08/22/2013 KEIRA FORD PSYD 784.0 HEADACHE 08/22/2013 OGLESBY DO, CAMERON K 585.4 CHRONIC KIDNEY DISEASE STAGE IV (SEVERE) 08/22/2013 OGLESBY DO, CAMERON K 784.0 HEADACHE 08/22/2013 JORDAN MCDONALD APRN 585. 4 CHRONIC KIDNEY DISEASE STAGE IV (SEVERE) 08/22/2013 JORDAN MCDONALD APRN 784. 0 HEADACHE 08/22/2013 STACEY GAMINO PA-C 585.4 CHRONIC KIDNEY DISEASE STAGE IV (SEVERE) 08/22/2013 STACEY GAMINO PA-C 784.0 HEADACHE 08/22/2013 KEIRA FORD PSYD 585.4 CHRONIC KIDNEY DISEASE STAGE IV (SEVERE) 08/22/2013 KEIRA FORD PSYD 784.0 HEADACHE 10/29/2013 LATISHA CORLEY APRNRICIA R 034.0 STREP THROAT 10/29/2013 LATISHA CORLEY APRNRICIA R 786.2 COUGH 10/29/2013 BARNEY TAVERASN, MAKSIM R 034.0 STREP THROAT 10/29/2013 BARNEY SPREADER, MAKSIM R 786.2 COUGH 10/29/2013 OGLESBY DO, [...] OGLESBY DO, CAMERON K 786.2 COUGH 10/29/2013 CAMERON OGLESBY DO K 034.0 STREP THROAT 10/29/2013 ESTHELA OGLESBY DOA K 786.2 COUGH 10/29/2013 KEIRA FORD PSYD L 034.0 STREP THROAT 10/29/2013 KEIRA FORD PSYD L 786.2 COUGH 10/29/2013 ESTHELA OGLESBY DOA K 034.0 STREP THROAT 10/29/2013 ESTHELA OGLESBY DOA K 786.2 COUGH 10/29/2013 JORDAN MCDONALD APRN 034. 0 STREP THROAT 10/29/2013 JORDAN MCDONALD APRN 786. 2 COUGH 10/29/2013 STACEY GAMINO PA-C 034.0 STREP THROAT 10/29/2013 STACEY GAMINO PA-C 786.2 COUGH 10/29/2013 KEIRA FORD PSYD 034.0 STREP THROAT 10/29/2013 KEIRA FORD PSYD L 786.2 COUGH 03/30/2014 MENDEL WASSERMANCAMERON K 461.9 SINUSITIS ACUTE 03/30/2014 KEIRA FORD PSYD 461.9 SINUSITIS ACUTE 03/30/2014 MENDEL WASSERMANCAMERON 461.9 SINUSITIS ACUTE 03/30/2014 JORDAN MCDONALD APRN 461. 9 SINUSITIS ACUTE 03/30/2014 STACEY GAMINO PA-C 461.9 SINUSITIS ACUTE 03/30/2014 KEIRA FORD PSYD 461.9 SINUSITIS ACUTE 05/29/2014 KEIRA FORD PSYD 786.02 ORTHOPNEA 05/29/2014 MENDEL WASSERMANCAMERON K 786.02 ORTHOPNEA 05/29/2014 JORDAN MCDONALD APRN 786. 02 ORTHOPNEA 05/29/2014 STACEY GAMINO PA-C 786.02 ORTHOPNEA 05/29/2014 KEIRA FORD PSYD 786.02 ORTHOPNEA 06/01/2014 KEIRA FORD PSYD 300.02 AN GEN ANXIETY 06/01/2014 OGLESBY CAMERON WASSERMAN K 300.02 AN GEN ANXIETY 06/01/2014 JORDAN MCDONALD APRN 300. 02 AN GEN ANXIETY 06/01/2014 STACEY GAMINO PA-C 300.02 AN GEN ANXIETY 06/01/2014 KEIRA FORD PSYD L 300.02 AN GEN ANXIETY 06/04/2014 OGLESBY CAMERON WASSERMAN K 824.2 FRACTURE OF LATERAL MALLEOLUS CLOSED 06/04/2014 MENDEL CAMERON WASSERMAN K 845.00 UNSPECIFIED SITE OF ANKLE SPRAIN 06/04/2014 JORDAN MCDONALD APRN 824. 2 FRACTURE OF LATERAL MALLEOLUS CLOSED 06/04/2014 JORDAN MCDONALD APRN 845. 00 UNSPECIFIED SITE OF ANKLE SPRAIN 06/04/2014 STACEY GAMINO PA-C 824.2 FRACTURE OF LATERAL MALLEOLUS CLOSED 06/04/2014 STACEY GAMINO PA-C 845.00 UNSPECIFIED SITE OF ANKLE SPRAIN 06/04/2014 KEIRA FORD PSYD 824.2 FRACTURE OF LATERAL MALLEOLUS CLOSED 06/04/2014 KEIRA FORD PSYD 845.00 UNSPECIFIED SITE OF ANKLE SPRAIN 06/26/2014 CAMERON OGLESBY DO K 388.70 OTALGIA UNSPECIFIED 06/26/2014 JORDAN MCDONALD APRN 388. 70 OTALGIA UNSPECIFIED 06/26/2014 STACEY GAMINO PA-C 388.70 OTALGIA UNSPECIFIED 06/26/2014 KEIRA FORD PSYD 388.70 OTALGIA UNSPECIFIED 01/13/2015 KERA MARINA Ot V76.12 01/18/2015 KERA MARINA Ot V76.12 01/18/2015 ARUNA HERNANDEZ MD Ot 414. 00 01/18/2015 ARUNA HERNANDEZ MD Ot 427. 31 01/18/2015 ARUNA HERNANDEZ MD Ot 786. 50 01/19/2015 ARUNA HERNANDEZ MD Ot 414. 00 01/19/2015 ARUNA HERNANDEZ MD Ot 427. 31 01/19/2015 ARUNA HERNANDEZ MD Ot 786. 50 01/20/2015 Ot 719.45 01/20/2015 Ot 354.0 01/20/2015 Ot V72.83 01/20/2015 Ot V74.8 01/20/2015 Ot 354.0 01/20/2015 Ot V72.83 01/20/2015 Ot V74.8 01/20/2015 Ot 414.9 01/20/2015 Ot 786.05 01/20/2015 Ot 786.50 01/20/2015 Ot 397.0 01/20/2015 Ot 786.50 01/20/2015 Ot V58.69 01/20/2015 Ot V64.3 01/20/2015 Ot 786.05 01/20/2015 Ot 786.50 01/20/2015 ARUNA HERNANDEZ MD Ot 414. 00 01/20/2015 ARUNA HERNANDEZ MD Ot 427. 31 01/20/2015 ARUNA HERNANDEZ MD Ot 786. 50 01/20/2015 Ot 719.45 01/20/2015 Ot 354.0 01/20/2015 Ot V72.83 01/20/2015 Ot V74.8 01/20/2015 Ot 354.0 01/20/2015 Ot V72.83 01/20/2015 Ot V74.8 01/20/2015 Ot 414.9 01/20/2015 Ot 786.05 01/20/2015 Ot 786.50 01/20/2015 Ot 397.0 01/20/2015 Ot 786.50 01/20/2015 Ot V58.69 01/20/2015 Ot V64.3 01/20/2015 Ot 786.05 01/20/2015 Ot 786.50 01/20/2015 ARUNA HERNANDEZ MD Ot 414. 00 01/20/2015 ARUNA HERNANDEZ MD Ot 427. 31 01/20/2015 ARUNA HERNANDEZ MD Ot 786. 50 01/20/2015 ARUNA HERNANDEZ MD Ot E03. 9 HYPOTHYROIDISM, UNSPECIFIED 01/20/2015 ARUNA HERNANDEZ MD Ot E66. 01 MORBID (SEVERE) OBESITY DUE TO EXCESS CA 01/20/2015 ARUNA HERNANDEZ MD Ot E78. 5 HYPERLIPIDEMIA, UNSPECIFIED 01/20/2015 ARUNA HERNANDEZ MD Ot I12. 9 HYPERTENSIVE CHRONIC KIDNEY DISEASE W ST 01/20/2015 ARUNA HERNANDEZ MD Ot I25. 10 ATHSCL HEART DISEASE OF [place] CORONARY 01/20/2015 ARUNA HERNANDEZ MD Ot N18. 4 CHRONIC KIDNEY DISEASE, STAGE 4 (SEVERE) 01/20/2015 ARUNA HERNANDEZ MD Ot R07. 9 CHEST PAIN, UNSPECIFIED 01/20/2015 ARUNA HERNANDEZ MD Ot R94. 39 ABNORMAL RESULT OF OTHER CARDIOVASCULAR 01/20/2015 ARUNA HERNANDEZ MD Ot Z68. 42 BODY MASS INDEX (BMI) 45.0-49.9, ADULT 01/20/2015 ARUNA HERNANDEZ MD Ot Z79.899 OTHER CORRECTION (CURRENT) DRUG THERAPY 03/25/2015 FELICIANO WAYNE APRN Ot K52 .9 NONINFECTIVE GASTROENTERITIS AND COLITIS 03/25/2015 FELICIANO WAYNE SPREADER Ot N39 .0 URINARY TRACT INFECTION, SITE NOT SPECIF 03/25/2015 FELICIANO WAYNE APRN Ot Z90.49 ACQUIRED ABSENCE OF OTHER SPECIFIED PART 06/07/2015 ARUNA HERNANDEZ MD Ot 414. 00 06/07/2015 ARUNA HERNANDEZ MD Ot 427. 31 06/07/2015 ARUNA HERNANDEZ MD Ot 786. 50 06/07/2015 ARUNA HERNANDEZ MD Ot 414. 00 06/07/2015 ARUNA HERNANDEZ MD Ot 427. 31 06/07/2015 ARUNA HERNANDEZ MD Ot 786. 50 06/07/2015 ARUNA HERNANDEZ MD Ot 414. 00 06/07/2015 ARUNA HERNANDEZ MD Ot 427. 31 06/07/2015 ARUNA HERNANDEZ MD Ot 786. 50 06/07/2015 BEVERLY WHITMORE DO Ot K22. 5 06/07/2015 BEVERLY WHITMORE DO Ot R13. 10 06/07/2015 BEVERLY WHITMORE DO Ot K22. 5 06/07/2015 BEVERLY WHITMORE DO Ot R13. 10 06/07/2015 ARUNA HERNANDEZ MD Ot 414. 00 06/07/2015 ARUNA HERNANDEZ MD Ot 427. 31 06/07/2015 ARUNA HERNANDEZ MD Ot 786. 50 06/07/2015 BEVERLY WHITMORE DO Ot K22. 5 06/07/2015 BEVERLY WHITMORE DO Ot R13. 10 06/14/2015 ARUNA HERNANDEZ MD Ot 414. 00 06/14/2015 ARUNA HERNANDEZ MD Ot 427. 31 06/14/2015 ARUNA HERNANDEZ MD Ot 786. 50 09/23/2015 KERA MARINA UPHOLSTERY COVERS INSPECTOR Ot V76.12 OTH SCREEN MAMMO-MALIGN NEOPLASM OF CHARLIE 09/23/2015 DAVID DOHERTY, ARUNA Hernandez Ot 414. 00 CORON ATHEROSCLER NOS TYPE VESSEL, NATIV 09/23/2015 DAVID DOHERTY, ARUNA Hernandez Ot 427. 31 ATRIAL FIBRILLATION 09/23/2015 ARUNA HERNANDEZ MD Ot 786. 50 CHEST PAIN NOS 09/23/2015 WHITMOREBEVERLY WAGNER DO Ot K22. 5 DIVERTICULUM OF ESOPHAGUS, ACQUIRED 09/23/2015 [place] BEVERLY WASSERMAN Ot R13. 10 DYSPHAGIA, UNSPECIFIED 09/29/2015 [place] BEVERLY WASSERMAN Ot K52. 9 NONINFECTIVE GASTROENTERITIS AND COLITIS 09/29/2015 BEVERLY WHITMORE DO Ot Z01.818 ENCOUNTER FOR OTHER PREPROCEDURAL EXAMIN 09/29/2015 TU ISABEL L UPHOLSTERY COVERS INSPECTOR Ot Z12.31 ENCNTR SCREEN MAMMOGRAM FOR MALIGNANT NE 09/30/2015 [place] BEVERLY WASSERMAN Ot K52. 9 NONINFECTIVE GASTROENTERITIS AND COLITIS 09/30/2015 [place] BEVERLY WASSERMAN D Ot Z01.818 ENCOUNTER FOR OTHER PREPROCEDURAL EXAMIN 10/05/2015 BINA WHITMORE DOTT D Ot K52. 9 NONINFECTIVE GASTROENTERITIS AND COLITIS 10/05/2015 WHITMORE BEVERLY WASSERMAN Ot Z86.010 PERSONAL HISTORY OF COLONIC POLYPS 10/07/2015 [place] BINA WASSERMANTT D Ot K52. 9 NONINFECTIVE GASTROENTERITIS AND COLITIS 10/07/2015 WHITMORE BEVERLY WASSERMAN D Ot Z86.010 PERSONAL HISTORY OF COLONIC POLYPS 10/08/2015 [place] BINA WASSERMANTT D Ot K52. 9 NONINFECTIVE GASTROENTERITIS AND COLITIS 10/08/2015 [place] BINA WASSERMANTT D Ot Z86.010 PERSONAL HISTORY OF COLONIC POLYPS 10/08/2015 WHITMORE BINA WASSERMANTT D Ot K52. 9 NONINFECTIVE GASTROENTERITIS AND COLITIS 10/08/2015 WHITMORE BEVERLY WASSERMAN D Ot Z86.010 PERSONAL HISTORY OF COLONIC POLYPS 04/06/2016 WHITMORE BEVERLY WASSERMAN D Ot K22. 5 DIVERTICULUM OF ESOPHAGUS, ACQUIRED 04/06/2016 BEVERLY WHITMORE DO Ot R13. 10 DYSPHAGIA, UNSPECIFIED 04/06/2016 ARUNA HERNANDEZ MD Ot 414. 00 CORON ATHEROSCLER NOS TYPE VESSEL, NATIV 04/06/2016 DAVID DOHERTY, ARUNA Hernandez Ot 427. 31 ATRIAL FIBRILLATION 04/06/2016 DAVID DOHERTY, AURNA Hernandez Ot 786. 50 CHEST PAIN NOS 04/06/2016 BEVERLY WHITMORE DO Ot K22. 5 DIVERTICULUM OF ESOPHAGUS, ACQUIRED 04/06/2016 BEVERLY WHITMORE DO Ot R13. 10 DYSPHAGIA, UNSPECIFIED 04/07/2016 FELICIANO WAYNE SPREADER Ot K52 .9 NONINFECTIVE GASTROENTERITIS AND COLITIS 04/07/2016 FELICIANO WAYNE SPREADER Ot N39 .0 URINARY TRACT INFECTION, SITE NOT SPECIF 04/07/2016 FELICIANO WAYEN SPREADER Ot Z90.49 ACQUIRED ABSENCE OF OTHER SPECIFIED PART 04/14/2016 CHARLYLISABEL UPHOLSTERY COVERS INSPECTOR Ot E55 .9 VITAMIN D DEFICIENCY, UNSPECIFIED 04/14/2016 MADLRAMESHA L UPHOLSTERY COVERS INSPECTOR Ot M85.89 OTH DISRD OF BONE DENSITY AND STRUCTURE, 04/26/2016 ISABEL MAE UPHOLSTERY COVERS INSPECTOR Ot E55 .9 VITAMIN D DEFICIENCY, UNSPECIFIED 04/26/2016 MADL, ISABEL L UPHOLSTERY COVERS INSPECTOR Ot M85.89 OTH DISRD OF BONE DENSITY AND STRUCTURE, 05/01/2016 BEVERLY WHITMORE DO Ot K22. 5 DIVERTICULUM OF ESOPHAGUS, ACQUIRED 05/01/2016 BEVERLY WHITMORE DO Ot R13. 10 DYSPHAGIA, UNSPECIFIED 05/15/2016 JULIAN DOHERTY, RUSTAM Guerra Ot M17.11 UNILATERAL PRIMARY OSTEOARTHRITIS, RIGHT 05/15/2016 JULIAN DOHERTY, RUSTAM Guerra Ot M17.12 UNILATERAL PRIMARY OSTEOARTHRITIS, LEFT 05/15/2016 JULIAN DOHERTY, RUSTAM Guerra Ot M54.16 RADICULOPATHY, LUMBAR REGION 05/18/2016 RUSTAM JORDAN MD Ot M17.11 UNILATERAL PRIMARY OSTEOARTHRITIS, RIGHT 05/18/2016 RUSTAM JORDAN MD Ot M17.12 UNILATERAL PRIMARY OSTEOARTHRITIS, LEFT 05/18/2016 [...] LUMBAR REGION 06/19/2016 BRENTON BENNETT MD Ot E66. 01 MORBID (SEVERE) OBESITY DUE TO EXCESS CA 06/19/2016 BRENTON BENNETT MD, Ot M47.816 SPONDYLOSIS W/O MYELOPATHY OR RADICULOPA 06/19/2016 BRENTON BENNETT MD, Ot M53. 3 SACROCOCCYGEAL DISORDERS, NOT ELSEWHERE 06/19/2016 BRENTON BENNETT MD, Ot M79. 7 FIBROMYALGIA 06/19/2016 BRENTON BENNETT MD, Ot Z68. 41 BODY MASS INDEX (BMI) 40.0-44.9, ADULT 06/19/2016 BRENTON BENNETT MD, Ot Z79.899 OTHER CORRECTION (CURRENT) DRUG THERAPY 06/19/2016 KERA MARINA Ot V76.12 OTH SCREEN MAMMO-MALIGN NEOPLASM OF CHARLIE 06/19/2016 ARUNA HERNANDEZ MD Ot 414. 00 CORON ATHEROSCLER NOS TYPE VESSEL, NATIV 06/19/2016 ARUNA HERNANDEZ MD Ot 427. 31 ATRIAL FIBRILLATION 06/19/2016 ARUNA HERNANDEZ MD Ot 786. 50 CHEST PAIN NOS 06/19/2016 BEVERLY WHITMORE DO Ot K22. 5 DIVERTICULUM OF ESOPHAGUS, ACQUIRED 06/19/2016 BEVERLY WHITMORE DO Ot R13. 10 DYSPHAGIA, UNSPECIFIED 06/19/2016 ISABEL MAE Ot Z12.31 ENCNTR SCREEN MAMMOGRAM FOR MALIGNANT NE 06/19/2016 ISABEL MAE Ot E55 .9 VITAMIN D DEFICIENCY, UNSPECIFIED 06/19/2016 ISABEL MAE Ot M85.89 OTH DISRD OF BONE DENSITY AND STRUCTURE, 06/19/2016 RUSTAM JORDAN MD, Ot M17.11 UNILATERAL PRIMARY OSTEOARTHRITIS, RIGHT 06/19/2016 ZAFUTA MD, RUSTAM P Ot M17.12 UNILATERAL PRIMARY OSTEOARTHRITIS, LEFT 06/19/2016 JULIAN DOHERTY, RUSTAM P Ot M54.16 RADICULOPATHY, LUMBAR REGION 07/04/2016 BRENTON BENNETT MD, Ot E66. 01 MORBID (SEVERE) OBESITY DUE TO EXCESS CA 07/04/2016 BRENTON BENNETT MD, Ot M47.816 SPONDYLOSIS W/O MYELOPATHY OR RADICULOPA 07/04/2016 BRENTON BENNETT MD, Ot M53. 3 SACROCOCCYGEAL DISORDERS, NOT ELSEWHERE 07/04/2016 BRENTON BENNETT MD, Ot M79. 7 FIBROMYALGIA 07/04/2016 BRENTON BENNETT MD, Ot Z68. 41 BODY MASS INDEX (BMI) 40.0-44.9, ADULT 07/04/2016 BRENTON BENNETT MD, Ot Z79.899 OTHER CORRECTION (CURRENT) DRUG THERAPY 07/14/2016 BRENTON BENNETT MD, Ot E66. 01 MORBID (SEVERE) OBESITY DUE TO EXCESS CA 07/14/2016 BRENTON BENNETT MD, Ot M47.816 SPONDYLOSIS W/O MYELOPATHY OR RADICULOPA 07/14/2016 BRENTON BENNETT MD, Ot M53. 3 SACROCOCCYGEAL DISORDERS, NOT ELSEWHERE 07/14/2016 BRENTON BENNETT MD, Ot M79. 7 FIBROMYALGIA 07/14/2016 BRENTON BENNETT MD, Ot Z68. 41 BODY MASS INDEX (BMI) 40.0-44.9, ADULT 07/14/2016 BRENTON BENNETT MD, Ot Z79.899 OTHER CORRECTION (CURRENT) DRUG THERAPY 10/03/2016 STACEY COMBS MD Ot E03.9 HYPOTHYROIDISM, UNSPECIFIED 10/03/2016 STACEY COMBS MD Ot E78.00 PURE HYPERCHOLESTEROLEMIA, UNSPECIFIED 10/03/2016 STACEY COMBS MD Ot F32.9 MAJOR DEPRESSIVE DISORDER, SINGLE EPISOD 10/03/2016 STACEY COMBS MD Ot F41.9 ANXIETY DISORDER, UNSPECIFIED 10/03/2016 STACEY COMBS MD Ot I12.9 HYPERTENSIVE CHRONIC KIDNEY DISEASE W ST 10/03/2016 STACEY COMBS MD Ot J45.909 UNSPECIFIED ASTHMA, UNCOMPLICATED 10/03/2016 STACEY COMBS MD Ot N18.9 CHRONIC KIDNEY DISEASE, UNSPECIFIED 10/03/2016 STACEY COMBS MD Ot R11.0 NAUSEA 10/03/2016 STACEY COMBS MD Ot R51 HEADACHE 10/30/2016 ISABEL MAE UPHOLSTERY COVERS INSPECTOR Ot Z12.31 ENCNTR SCREEN MAMMOGRAM FOR MALIGNANT NE 12/15/2016 GHULAM BURNETT MD Ot E03 .9 HYPOTHYROIDISM, UNSPECIFIED 12/15/2016 GHULAM BURNETT MD Ot E78.00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 DOHERTY, VIGNESH S Ot E61.1 IRON DEFICIENCY 06/12/2018 BLAZE DOHERTY, VIGNESH S Ot E78.5 HYPERLIPIDEMIA, UNSPECIFIED 06/12/2018 BLAZE DOHERTY, VINGESH S Ot E87.2 ACIDOSIS 06/12/2018 BLAZE DOHERTY, VIGNESH S Ot E87.3 ALKALOSIS 06/12/2018 BLAZE DOHERTY, VIGNESH S Ot E87.5 HYPERKALEMIA 06/12/2018 BLAZE DOHERTY, VIGNESH S Ot I12.9 HYPERTENSIVE CHRONIC KIDNEY DISEASE W ST 06/12/2018 BLAZE DOHERTY, VIGNESH S Ot N17.9 ACUTE KIDNEY FAILURE, UNSPECIFIED 06/12/2018 BLAZE DOHERTY, VIGNESH S Ot N18.4 CHRONIC KIDNEY DISEASE, STAGE 4 (SEVERE) 06/12/2018 BLAZE DOHERTY, VIGNESH S Ot N25.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 06/12/2018 VIGNESH THAKUR MD S Ot R80.9 PROTEINURIA, UNSPECIFIED 06/12/2018 MADL, ISABEL L UPHOLSTERY COVERS INSPECTOR Ot Z53 .9 PROCEDURE AND TREATMENT NOT CARRIED OUT, 06/12/2018 NEW, GE BlevinsJoey FREELANCE DIRECTOR-C Ot D63.1 ANEMIA IN CHRONIC KIDNEY DISEASE 06/12/2018 NEW, GE BlevinsJoey FREELANCE DIRECTOR-C Ot E55.9 VITAMIN D DEFICIENCY, UNSPECIFIED 06/12/2018 NEW, GE BlevinsJoey FREELANCE DIRECTOR-C Ot E61.1 IRON DEFICIENCY 06/12/2018 NEW, GE BlevinsJoey FREELANCE DIRECTOR-C Ot E78.5 HYPERLIPIDEMIA, UNSPECIFIED 06/12/2018 NEW, GE BlevinsJoey FREELANCE DIRECTOR-C Ot E87.2 ACIDOSIS 06/12/2018 NEW, GE GJoey FREELANCE DIRECTOR-C Ot E87.3 ALKALOSIS 06/12/2018 NEW, GE G. FREELANCE DIRECTOR-C Ot E87.5 HYPERKALEMIA 06/12/2018 NEW, GE BlevinsJoey FREELANCE DIRECTOR-C Ot I12.9 HYPERTENSIVE CHRONIC KIDNEY DISEASE W ST 06/12/2018 NEW, GE Blevins. FREELANCE DIRECTOR-C Ot N18.4 CHRONIC KIDNEY DISEASE, STAGE 4 (SEVERE) 06/12/2018 NEW, GE Blevins. FREELANCE DIRECTOR-C Ot N25.8 1 SECONDARY HYPERPARATHYROIDISM OF RENAL O 06/12/2018 NEW, GE Blevins. FREELANCE DIRECTOR-C Ot R80.9 PROTEINURIA, UNSPECIFIED 06/12/2018 NEW, GE Blevins. FREELANCE DIRECTOR-C Ot R82.9 0 UNSPECIFIED ABNORMAL FINDINGS IN URINE 06/12/2018 ZHANE BOSCH APRN Ot Z12.31 ENCNTR SCREEN MAMMOGRAM FOR MALIGNANT NE 06/12/2018 ISABEL MAE UPHOLSTERY COVERS INSPECTOR Ot J90 PLEURAL EFFUSION, NOT ELSEWHERE CLASSIFI 06/12/2018 MYESHA THAKUR MD Ot D63.1 ANEMIA IN CHRONIC KIDNEY DISEASE 06/12/2018 MYESHA THAKUR MD Ot E55.9 VITAMIN D DEFICIENCY, UNSPECIFIED 06/12/2018 MYESHA THAKUR MD Ot E61.1 IRON DEFICIENCY 06/12/2018 MYESHA THAKUR MD Ot E78.5 HYPERLIPIDEMIA, UNSPECIFIED 06/12/2018 BLAZE DOHERTY, MYESHA Ot E87.2 ACIDOSIS 06/12/2018 INDIRA THAKUR MDINE Ot E87.3 ALKALOSIS 06/12/2018 MYESHA THAKUR MD Ot E87.5 HYPERKALEMIA 06/12/2018 MYESHA THAKUR MD Ot I12.9 HYPERTENSIVE CHRONIC KIDNEY DISEASE W ST 06/12/2018 MYESHA THAKUR MD, Ot N17.9 ACUTE KIDNEY FAILURE, UNSPECIFIED 06/12/2018 MYESHA THAKUR MD Ot N18.4 CHRONIC KIDNEY DISEASE, STAGE 4 (SEVERE) 06/12/2018 MYESHA THAKUR MD Ot N25.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 06/12/2018 MYESHA THAKUR MD Ot R80.9 PROTEINURIA, UNSPECIFIED 06/12/2018 ARUNA HERNANDEZ MD Ot E66. 01 MORBID (SEVERE) OBESITY DUE TO EXCESS CA 06/12/2018 ARUNA HERNANDEZ MD Ot I10 ESSENTIAL (PRIMARY) HYPERTENSION 06/12/2018 ARUNA HERNANDEZ MD Ot I25. 10 ATHSCL HEART DISEASE OF [place] CORONARY 06/12/2018 ARUNA HERNANDEZ MD Ot I48. 0 PAROXYSMAL ATRIAL FIBRILLATION 06/12/2018 ARUNA HERNANDEZ MD Ot M79. 7 FIBROMYALGIA 06/12/2018 ARUNA HERNANDEZ MD Ot R06. 02 SHORTNESS OF BREATH 06/12/2018 ARUNA HERNANDEZ MD Ot R07. 89 OTHER CHEST PAIN 06/12/2018 ARUNA HERNANDEZ MD Ot Z68. 35 BODY MASS INDEX (BMI) 35.0-35.9, ADULT 06/12/2018 OG DE LEON DO M Ot R91. 1 SOLITARY PULMONARY NODULE 06/12/2018 MYESHA THAKUR MD Ot D63.1 ANEMIA IN CHRONIC KIDNEY DISEASE 06/12/2018 MYESHA THAKUR MD Ot E55.9 VITAMIN D DEFICIENCY, UNSPECIFIED 06/12/2018 MYESHA THAKUR MD Ot E61.1 IRON DEFICIENCY 06/12/2018 MYESHA THAKUR MD Ot E78.5 HYPERLIPIDEMIA, UNSPECIFIED 06/12/2018 MYESHA THAKUR MD Ot E87.2 ACIDOSIS 06/12/2018 MYESHA THAKUR MD Ot E87.3 ALKALOSIS 06/12/2018 MYESHA THAKUR MD Ot E87.5 HYPERKALEMIA 06/12/2018 ABOUL-MAGD MD, MYESHA Ot I12.9 HYPERTENSIVE CHRONIC KIDNEY DISEASE W ST 06/12/2018 MYESHA THAKUR MD Ot N17.9 ACUTE KIDNEY FAILURE, UNSPECIFIED 06/12/2018 MYESHA THAKUR MD Ot N18.4 CHRONIC KIDNEY DISEASE, STAGE 4 (SEVERE) 06/12/2018 MYESHA THAKUR MD Ot N25.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 06/12/2018 MYESHA THAKUR MD Ot R80.9 PROTEINURIA, UNSPECIFIED 06/12/2018 KITA BLACKMON SPREADER Ot G47.33 OBSTRUCTIVE SLEEP APNEA (ADULT) (PEDIATR 06/12/2018 KITA BLACKMON SPREADER Ot I48.0 PAROXYSMAL ATRIAL FIBRILLATION 06/12/2018 KITA BLACKMON SPREADER Ot J45.909 UNSPECIFIED ASTHMA, UNCOMPLICATED 06/12/2018 KITA BLACKMON APRN Ot K92.9 DISEASE OF DIGESTIVE SYSTEM, UNSPECIFIED 06/12/2018 KITA BLACKMON APRN Ot R06.02 SHORTNESS OF BREATH 06/12/2018 KITA BLACKMON SPREADER Ot R53.83 OTHER FATIGUE 06/12/2018 KITA BLACKMON SPREADER Ot R91.1 SOLITARY PULMONARY NODULE 06/12/2018 KITA BLACKMON SPREADER Ot J45.909 UNSPECIFIED ASTHMA, UNCOMPLICATED 06/12/2018 KITA BLACKMON SPREADER Ot R91.1 SOLITARY PULMONARY NODULE 06/12/2018 RUSTAM JOY MD Ot J32 .9 CHRONIC SINUSITIS, UNSPECIFIED 06/12/2018 RUSTAM JOY MD Ot J34 .2 DEVIATED NASAL SEPTUM 07/07/2018 RUSTAM SANABRIA DO Ot M47.817 SPONDYLS W/O MYELOPATHY OR RADICULOPATHY 07/07/2018 RUSTAM SANABRIA DO Ot M51.37 OTHER INTERVERTEBRAL DISC DEGENERATION, 07/08/2018 RUSTAM JOY MD Ot J32 .9 CHRONIC SINUSITIS, UNSPECIFIED 07/08/2018 RUSTAM JOY MD Ot J34 .2 DEVIATED NASAL SEPTUM 07/10/2018 RUSTAM JOY MD Ot J32 .9 CHRONIC SINUSITIS, UNSPECIFIED 07/10/2018 RUSTAM JOY MD Ot J34 .2 DEVIATED NASAL SEPTUM 07/17/2018 ARUNA HERNANDEZ MD Ot 414. 00 CORON ATHEROSCLER NOS TYPE VESSEL, NATIV 07/17/2018 ARUNA HERNANDEZ MD Ot 427. 31 ATRIAL FIBRILLATION 07/17/2018 ARUNA HERNANDEZ MD, Ot 786. 50 CHEST PAIN NOS 07/17/2018 BEVERLY WHITMORE DO Ot K22. 5 DIVERTICULUM OF ESOPHAGUS, ACQUIRED 07/17/2018 BEVERLY WHITMORE DO Ot R13. 10 DYSPHAGIA, UNSPECIFIED 07/17/2018 ISABEL MAE Ot Z12.31 ENCNTR SCREEN MAMMOGRAM FOR MALIGNANT NE 07/17/2018 ISABEL MAE Ot E55 .9 VITAMIN D DEFICIENCY, UNSPECIFIED 07/17/2018 ISABEL MAE Ot M85.89 OTH DISRD OF BONE DENSITY AND STRUCTURE, 07/17/2018 RUSTAM JORDAN MD, Ot M17.11 UNILATERAL PRIMARY OSTEOARTHRITIS, RIGHT 07/17/2018 RUSTAM JORDAN MD, Ot M17.12 UNILATERAL PRIMARY OSTEOARTHRITIS, LEFT 07/17/2018 RUSTAM JORDAN MD, Ot M54.16 RADICULOPATHY, LUMBAR REGION 07/17/2018 BRENTON BENNETT MD, Ot E66. 01 MORBID (SEVERE) OBESITY DUE TO EXCESS CA 07/17/2018 BRENTON BENNETT MD, Ot M47.816 SPONDYLOSIS W/O MYELOPATHY OR RADICULOPA 07/17/2018 BRENTON BENNETT MD, Ot M53. 3 SACROCOCCYGEAL DISORDERS, NOT ELSEWHERE 07/17/2018 BRENTON BENNETT MD, Ot M79. 7 FIBROMYALGIA 07/17/2018 BRENTON BENNETT MD, Ot Z68. 41 BODY MASS INDEX (BMI) 40.0-44.9, ADULT 07/17/2018 BRENTON BENNETT MD, Ot Z79.899 OTHER CORRECTION (CURRENT) DRUG THERAPY 07/17/2018 ISABEL MAE Ot Z12.31 ENCNTR SCREEN MAMMOGRAM FOR MALIGNANT NE 07/17/2018 SHANTELLE HAWTHORNE Ot I07.1 RHEUMATIC TRICUSPID INSUFFICIENCY 07/17/2018 SHANTELLE HAWTHORNE Ot I10 ESSENTIAL (PRIMARY) HYPERTENSION 07/17/2018 SHANTELLE HAWTHORNE Ot I25.10 ATHSCL HEART DISEASE OF [place] CORONARY 07/17/2018 SHANTELLE HAWTHORNE Ot R00.2 PALPITATIONS 07/17/2018 SHANTELLE HAWTHORNE Ot R42 DIZZINESS AND GIDDINESS 07/17/2018 BLAZE DOHERTY, VIGNESH S Ot D63.1 ANEMIA IN CHRONIC KIDNEY DISEASE 07/17/2018 BLAZE DOHERTY, VIGNESH S Ot E55.9 VITAMIN D DEFICIENCY, UNSPECIFIED 07/17/2018 BLAZE DOHERTY, VIGNESH S Ot E61.1 IRON DEFICIENCY 07/17/2018 BLAZE DOHERTY, VIGNESH S Ot E78.5 HYPERLIPIDEMIA, UNSPECIFIED 07/17/2018 BLAZE DOHERTY, VIGNESH S Ot E87.2 ACIDOSIS 07/17/2018 BLAZE DOHERTY, VIGNESH S Ot E87.3 ALKALOSIS 07/17/2018 BLAZE DOHERTY, VIGNESH S Ot E87.5 HYPERKALEMIA 07/17/2018 BLAZE DOHERTY, VIGNESH S Ot I12.9 HYPERTENSIVE CHRONIC KIDNEY DISEASE W ST 07/17/2018 BLAZE DOHERTY, VIGNESH S Ot N17.9 ACUTE KIDNEY FAILURE, UNSPECIFIED 07/17/2018 BLAZE DOHERTY, VIGNESH S Ot N18.4 CHRONIC KIDNEY DISEASE, STAGE 4 (SEVERE) 07/17/2018 BLAZE DOHERTY, VIGNESH S Ot N25.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 07/17/2018 BLAZE DOHERTY, VIGNESH S Ot R80.9 PROTEINURIA, UNSPECIFIED 07/17/2018 BLAZE DOHERTY, VIGNESH S Ot D63.1 ANEMIA IN CHRONIC KIDNEY DISEASE 07/17/2018 BLAZE DOHERTY, VIGNESH S Ot E55.9 VITAMIN D DEFICIENCY, UNSPECIFIED 07/17/2018 BLAZE DOHERTY, VIGNESH S Ot E61.1 IRON DEFICIENCY 07/17/2018 BLAZE DOHERTY, VIGNESH S Ot E78.5 HYPERLIPIDEMIA, UNSPECIFIED 07/17/2018 BLAZE DOHERTY, VIGNESH S Ot E87.2 ACIDOSIS 07/17/2018 BLAZE DOHERTY, VIGNESH S Ot E87.3 ALKALOSIS 07/17/2018 BLAZE DOHERTY, VIGNESH S Ot I12.9 HYPERTENSIVE CHRONIC KIDNEY DISEASE W ST 07/17/2018 BLAZE DOHERTY, VIGNESH S Ot N17.9 ACUTE KIDNEY FAILURE, UNSPECIFIED 07/17/2018 BLAZE DOHERTY, VIGNESH S Ot N18.4 CHRONIC KIDNEY DISEASE, STAGE 4 (SEVERE) 07/17/2018 BLAZE DOHERTY, VIGNESH S Ot N25.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 07/17/2018 BLAZE DOHERTY, IVGNESH S Ot R80.9 PROTEINURIA, UNSPECIFIED 07/17/2018 BLAZE DOHERTY, AIMEEMED S Ot D63.1 ANEMIA IN CHRONIC KIDNEY DISEASE 07/17/2018 BLAZE DOHERTY, VIGNESH S Ot E55.9 VITAMIN D DEFICIENCY, UNSPECIFIED 07/17/2018 BLAZE DOHERTY, VIGNESH S Ot E61.1 IRON DEFICIENCY 07/17/2018 BLAZE DOHERTY, VIGNESH S Ot E78.5 HYPERLIPIDEMIA, UNSPECIFIED 07/17/2018 BLAZE DOHERTY, VIGNESH S Ot E87.2 ACIDOSIS 07/17/2018 BLAZE DOHERTY, AIMEEMED S Ot E87.3 ALKALOSIS 07/17/2018 BLAZE DOHERTY, AIMEEMED S Ot E87.5 HYPERKALEMIA 07/17/2018 BLAZE DOHERTY, VIGNESH S Ot I12.9 HYPERTENSIVE CHRONIC KIDNEY DISEASE W ST 07/17/2018 BLAZE DOHERTY, VIGNESH S Ot N17.9 ACUTE KIDNEY FAILURE, UNSPECIFIED 07/17/2018 BLAZE DOHERTY, VIGNESH S Ot N18.4 CHRONIC KIDNEY DISEASE, STAGE 4 (SEVERE) 07/17/2018 BLAZE DOHERTY, AIMEEMED S Ot N25.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 07/17/2018 BLAZE DOHERTY, VIGNESH S Ot R80.9 PROTEINURIA, UNSPECIFIED 07/17/2018 ISABEL MAE Ot Z53 .9 PROCEDURE AND TREATMENT NOT CARRIED OUT, 07/17/2018 GE CARPIO NP-C Ot D63.1 ANEMIA IN CHRONIC KIDNEY DISEASE 07/17/2018 GE CARPIO NP-C Ot E55.9 VITAMIN D DEFICIENCY, UNSPECIFIED 07/17/2018 GE CARPIO NP-C Ot E61.1 IRON DEFICIENCY 07/17/2018 NEW, GE BlevinsJoey FREELANCE DIRECTOR-C Ot E78.5 HYPERLIPIDEMIA, UNSPECIFIED 07/17/2018 NEW, GE BlevinsJoey FREELANCE DIRECTOR-C Ot E87.2 ACIDOSIS 07/17/2018 NEW, GE BlevinsJoey FREELANCE DIRECTOR-C Ot E87.3 ALKALOSIS 07/17/2018 NEW, GE BlevinsJoey FREELANCE DIRECTOR-C Ot E87.5 HYPERKALEMIA 07/17/2018 NEW, GE BlevinsJoey FREELANCE DIRECTOR-C Ot I12.9 HYPERTENSIVE CHRONIC KIDNEY DISEASE W ST 07/17/2018 NEW, GE Blevins. FREELANCE DIRECTOR-C Ot N18.4 CHRONIC KIDNEY DISEASE, STAGE 4 (SEVERE) 07/17/2018 NEW, GE Blevins. FREELANCE DIRECTOR-C Ot N25.8 1 SECONDARY HYPERPARATHYROIDISM OF RENAL O 07/17/2018 NEW, GE Blevins. FREELANCE DIRECTOR-C Ot R80.9 PROTEINURIA, UNSPECIFIED 07/17/2018 NEW, GE Blevins. FREELANCE DIRECTOR-C Ot R82.9 0 UNSPECIFIED ABNORMAL FINDINGS IN URINE 07/17/2018 ZHANE BOSCH APRN Ot Z12.31 ENCNTR SCREEN MAMMOGRAM FOR MALIGNANT NE 07/17/2018 ISABEL MAE UPHOLSTERY COVERS INSPECTOR Ot J90 PLEURAL EFFUSION, NOT ELSEWHERE CLASSIFI 07/17/2018 MYESHA THAKUR MD Ot D63.1 ANEMIA IN CHRONIC KIDNEY DISEASE 07/17/2018 MYESHA THAKUR MD Ot E55.9 VITAMIN D DEFICIENCY, UNSPECIFIED 07/17/2018 MYESHA THAKUR MD Ot E61.1 IRON DEFICIENCY 07/17/2018 MYESHA THAKUR MD Ot E78.5 HYPERLIPIDEMIA, UNSPECIFIED 07/17/2018 MYESHA THAKUR MD Ot E87.2 ACIDOSIS 07/17/2018 MYESHA THAKUR MD Ot E87.3 ALKALOSIS 07/17/2018 MYESHA THAKUR MD Ot E87.5 HYPERKALEMIA 07/17/2018 MYESHA THAKUR MD Ot I12.9 HYPERTENSIVE CHRONIC KIDNEY DISEASE W ST 07/17/2018 MYESHA THAKUR MD Ot N17.9 ACUTE KIDNEY FAILURE, UNSPECIFIED 07/17/2018 MYESHA THAKUR MD Ot N18.4 CHRONIC KIDNEY DISEASE, STAGE 4 (SEVERE) 07/17/2018 MYESHA THAKUR MD Ot N25.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 07/17/2018 MYESHA THAKUR MD Ot R80.9 PROTEINURIA, UNSPECIFIED 07/17/2018 ARUNA HERNANDEZ MD, Ot E66. 01 MORBID (SEVERE) OBESITY DUE TO EXCESS CA 07/17/2018 ARUNA HERNANDEZ MD Ot I10 ESSENTIAL (PRIMARY) HYPERTENSION 07/17/2018 ARUNA HERNANDEZ MD Ot I25. 10 ATHSCL HEART DISEASE OF [place] CORONARY 07/17/2018 ARUNA HERNANDEZ MD Ot I48. 0 PAROXYSMAL ATRIAL FIBRILLATION 07/17/2018 ARUNA HERNANDEZ MD Ot M79. 7 FIBROMYALGIA 07/17/2018 ARUNA HERNANDEZ MD Ot R06. 02 SHORTNESS OF BREATH 07/17/2018 ARUNA HERNANDEZ MD Ot R07. 89 OTHER CHEST PAIN 07/17/2018 ARUNA HERNANDEZ MD Ot Z68. 35 BODY MASS INDEX (BMI) 35.0-35.9, ADULT 07/17/2018 OG DE LEON DO Ot R91. 1 SOLITARY PULMONARY NODULE 07/17/2018 MYESHA THAKUR MD Ot D63.1 ANEMIA IN CHRONIC KIDNEY DISEASE 07/17/2018 MYESHA THAKUR MD Ot E55.9 VITAMIN D DEFICIENCY, UNSPECIFIED 07/17/2018 MYESHA THAKUR MD Ot E61.1 IRON DEFICIENCY 07/17/2018 MYESHA THAKUR MD Ot E78.5 HYPERLIPIDEMIA, UNSPECIFIED 07/17/2018 MYESHA THAKUR MD Ot E87.2 ACIDOSIS 07/17/2018 MYESHA THAKUR MD Ot E87.3 ALKALOSIS 07/17/2018 MYESHA THAKUR MD Ot E87.5 HYPERKALEMIA 07/17/2018 MYESHA THAKUR MD Ot I12.9 HYPERTENSIVE CHRONIC KIDNEY DISEASE W ST 07/17/2018 MYESHA THAKUR MD Ot N17.9 ACUTE KIDNEY FAILURE, UNSPECIFIED 07/17/2018 MYESHA THAKUR MD Ot N18.4 CHRONIC KIDNEY DISEASE, STAGE 4 (SEVERE) 07/17/2018 MYESHA THAKUR MD Ot N25.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 07/17/2018 BLAZE DOHERTY, MYESHA Ot R80.9 PROTEINURIA, UNSPECIFIED 07/17/2018 KITA BLACKMON APRN Ot G47.33 OBSTRUCTIVE SLEEP APNEA (ADULT) (PEDIATR 07/17/2018 KITA BLACKMON APRN Ot I48.0 PAROXYSMAL ATRIAL FIBRILLATION 07/17/2018 KITA BLACKMON APRN Ot J45.909 UNSPECIFIED ASTHMA, UNCOMPLICATED 07/17/2018 KITA BLACKMON APRN Ot K92.9 DISEASE OF DIGESTIVE SYSTEM, UNSPECIFIED 07/17/2018 KITA BLACKMON APRN Ot R06.02 SHORTNESS OF BREATH 07/17/2018 KITA BLACKMON APRN Ot R53.83 OTHER FATIGUE 07/17/2018 KITA BLACKMON APRN Ot R91.1 SOLITARY PULMONARY NODULE 07/17/2018 KITA BLACKMON APRN Ot J45.909 UNSPECIFIED ASTHMA, UNCOMPLICATED 07/17/2018 KITA BLACKMON APRN Ot R91.1 SOLITARY PULMONARY NODULE 07/17/2018 RUSTAM JOY MD Ot J32 .9 CHRONIC SINUSITIS, UNSPECIFIED 07/17/2018 RUSTAM JOY MD Ot J34 .2 DEVIATED NASAL SEPTUM 07/17/2018 RUSTAM SANABRIA DO Ot M47.817 SPONDYLS W/O MYELOPATHY OR RADICULOPATHY 07/17/2018 RUSTAM SAANBRIA DO Ot M51.37 OTHER INTERVERTEBRAL DISC DEGENERATION, 07/18/2018 BRENTON TRAN APRN Ot N18.4 CHRONIC KIDNEY DISEASE, STAGE 4 (SEVERE) 07/18/2018 BRENTON TRAN APRN Ot N18.4 CHRONIC KIDNEY DISEASE, STAGE 4 (SEVERE) 07/18/2018 BRENTON TRAN APRN Ot D63.1 ANEMIA IN CHRONIC KIDNEY DISEASE 07/18/2018 BRENTON TRAN APRN Ot E55.9 VITAMIN D DEFICIENCY, UNSPECIFIED 07/18/2018 BRENTON TRAN APRN Ot E61.1 IRON DEFICIENCY 07/18/2018 BRENTON TRAN APRN Ot E78.5 HYPERLIPIDEMIA, UNSPECIFIED 07/18/2018 BRENTON TRAN APRN Ot E87.2 ACIDOSIS 07/18/2018 BRENTON TRAN SPREADER Ot E87.3 ALKALOSIS 07/18/2018 BRENTON TRAN SPREADER Ot E87.5 HYPERKALEMIA 07/18/2018 BRENTON TRAN SPREADER Ot I12.9 HYPERTENSIVE CHRONIC KIDNEY DISEASE W ST 07/18/2018 BRENTON TRAN SPREADER Ot N17.9 ACUTE KIDNEY FAILURE, UNSPECIFIED 07/18/2018 BRENTON TRAN SPREADER Ot N18.4 CHRONIC KIDNEY DISEASE, STAGE 4 (SEVERE) 07/18/2018 BRENTON TRAN SPREADER Ot N25.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 07/18/2018 BRENTON TRAN SPREADER Ot R80.9 PROTEINURIA, UNSPECIFIED 07/29/2018 ZHANE BOSCH SPREADER Ot M19.011 PRIMARY OSTEOARTHRITIS, RIGHT SHOULDER 07/29/2018 ZHANE BOSCH APRN Ot M25.711 OSTEOPHYTE, RIGHT SHOULDER 07/30/2018 RUSTAM SANABRIA DO Ot M47.817 SPONDYLS W/O MYELOPATHY OR RADICULOPATHY 07/30/2018 RUSTAM SANABRIA DO Ot M51.37 OTHER INTERVERTEBRAL DISC DEGENERATION, 08/05/2018 GHULAM BURNETT MD Ot A41 .4 SEPSIS DUE TO ANAEROBES 08/05/2018 GHULAM BURNETT MD Ot A41.59 OTHER GRAM-NEGATIVE SEPSIS 08/05/2018 GHULAM BURNETT MD Ot A41.89 OTHER SPECIFIED SEPSIS 08/05/2018 GHULAM BURNETT MD Ot D63 .1 ANEMIA IN CHRONIC KIDNEY DISEASE 08/05/2018 GHULAM BURNETT MD Ot E03 .9 HYPOTHYROIDISM, UNSPECIFIED 08/05/2018 GHULAM BURNETT MD Ot E78.00 PURE HYPERCHOLESTEROLEMIA, UNSPECIFIED 08/05/2018 GHULAM BURNETT MD Ot E87 .6 HYPOKALEMIA 08/05/2018 GHULAM BURNETT MD Ot F32 .9 MAJOR DEPRESSIVE DISORDER, SINGLE EPISOD 08/05/2018 GHULAM BURNETT MD Ot F41 .9 ANXIETY DISORDER, UNSPECIFIED 08/05/2018 GHULAM BURNETT MD Ot G25.81 RESTLESS LEGS SYNDROME 08/05/2018 GHULAM BURNETT MD Ot G43.909 MIGRAINE, UNSP, NOT INTRACTABLE, WITHOUT 08/05/2018 GHULAM BURNETT MD Ot G47.30 SLEEP APNEA, UNSPECIFIED 08/05/2018 GHULAM BURNETT MD Ot I12 .9 HYPERTENSIVE CHRONIC KIDNEY DISEASE W ST 08/05/2018 GHULAM BURNETT MD Ot I25.10 ATHSCL HEART DISEASE OF [place] CORONARY 08/05/2018 GHULAM BURNETT MD Ot I38 ENDOCARDITIS, VALVE UNSPECIFIED 08/05/2018 GHULAM BURNETT MD Ot J45.40 MODERATE PERSISTENT ASTHMA, UNCOMPLICATE 08/05/2018 GHULAM BURNETT MD Ot K21 .9 GASTRO-ESOPHAGEAL REFLUX DISEASE WITHOUT 08/05/2018 GHULAM BURNETT MD Ot M79 .7 FIBROMYALGIA 08/05/2018 GHULAM BURNETT MD Ot N18 .9 CHRONIC KIDNEY DISEASE, UNSPECIFIED 08/05/2018 GHULAM BURNETT MD Ot N30.00 ACUTE CYSTITIS WITHOUT HEMATURIA 08/05/2018 GHULAM BURNETT MD Ot N39.46 MIXED INCONTINENCE 08/05/2018 RUSTAM SANABRIA DO Ot M47.817 SPONDYLS W/O MYELOPATHY OR RADICULOPATHY 08/05/2018 RUSTAM SANABRIA DO Ot M51.37 OTHER INTERVERTEBRAL DISC DEGENERATION, 08/09/2018 BRENTON TRAN APRN Ot D63.1 ANEMIA IN CHRONIC KIDNEY DISEASE 08/09/2018 BRENTON TRAN APRN Ot E55.9 VITAMIN D DEFICIENCY, UNSPECIFIED 08/09/2018 BRENTON TRAN APRN Ot E61.1 IRON DEFICIENCY 08/09/2018 BRENTON TRAN APRN Ot E78.5 HYPERLIPIDEMIA, UNSPECIFIED 08/09/2018 BRENTON TRAN APRN Ot E87.2 ACIDOSIS 08/09/2018 BRENTON TRAN APRN Ot E87.3 ALKALOSIS 08/09/2018 BRENTON TRAN APRN Ot E87.5 HYPERKALEMIA 08/09/2018 BRENTON TRAN APRN Ot I12.9 HYPERTENSIVE CHRONIC KIDNEY DISEASE W ST 08/09/2018 BRENTON TRAN APRN Ot N17.9 ACUTE KIDNEY FAILURE, UNSPECIFIED 08/09/2018 BRENTON TRAN APRN Ot N18.4 CHRONIC KIDNEY DISEASE, STAGE 4 (SEVERE) 08/09/2018 BRENTON TRAN APRN Ot N25.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 08/09/2018 BRENTON TRAN APRN Ot R80.9 PROTEINURIA, UNSPECIFIED 08/13/2018 KITA BALCKMON APRN Ot G47.33 OBSTRUCTIVE SLEEP APNEA (ADULT) (PEDIATR 08/13/2018 KITA BLACKMON APRN Ot I48.0 PAROXYSMAL ATRIAL FIBRILLATION 08/13/2018 KITA BLACKMON APRN Ot J45.909 UNSPECIFIED ASTHMA, UNCOMPLICATED 08/13/2018 KITA BLACKMON APRN Ot K92.9 DISEASE OF DIGESTIVE SYSTEM, UNSPECIFIED 08/13/2018 KITA BLACKMON APRN Ot R59.0 LOCALIZED ENLARGED LYMPH NODES 08/13/2018 KITA BLACKMON APRN Ot R91.1 SOLITARY PULMONARY NODULE 08/13/2018 KITA BLACKMON APRN Ot Z78.9 OTHER SPECIFIED HEALTH STATUS 08/15/2018 BRENTON TRAN APRN Ot D63.1 ANEMIA IN CHRONIC KIDNEY DISEASE 08/15/2018 BRENTON TRAN APRN Ot E55.9 VITAMIN D DEFICIENCY, UNSPECIFIED 08/15/2018 BRENTON TRAN APRN Ot E61.1 IRON DEFICIENCY 08/15/2018 BRENTON TRAN APRN Ot E78.5 HYPERLIPIDEMIA, UNSPECIFIED 08/15/2018 BRENTON TRAN APRN Ot E87.2 ACIDOSIS 08/15/2018 BRENTON TRAN APRN Ot E87.3 ALKALOSIS 08/15/2018 BRENTON TRAN APRN Ot E87.5 HYPERKALEMIA 08/15/2018 BRENTON TRAN APRN Ot I12.9 HYPERTENSIVE CHRONIC KIDNEY DISEASE W ST 08/15/2018 BRENTON TRAN APRN Ot N17.9 ACUTE KIDNEY FAILURE, UNSPECIFIED 08/15/2018 BRENTON TRAN APRN Ot N18.4 CHRONIC KIDNEY DISEASE, STAGE 4 (SEVERE) 08/15/2018 BRENTON TRAN APRN Ot N25.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 08/15/2018 BRENTON TRAN SPREADER Ot R80.9 PROTEINURIA, UNSPECIFIED 08/15/2018 ZHANE BOSCH SPREADER Ot M19.011 PRIMARY OSTEOARTHRITIS, RIGHT SHOULDER 08/15/2018 ZHANE BOSCH SPREADER Ot M25.711 OSTEOPHYTE, RIGHT SHOULDER 08/20/2018 Ryland DOHERTY, David Garay E66.01 Obesity Class III (BMI >=40) 08/20/2018 Ryland DOHERTY, David Garay Z68.41 BMI 40-44.9 08/29/2018 ZHANE BOSCH SPREADER Ot M19.011 PRIMARY OSTEOARTHRITIS, RIGHT SHOULDER 08/29/2018 ZHANE BOSCH SPREADER Ot M25.711 OSTEOPHYTE, RIGHT SHOULDER 09/03/2018 KITA BLACKMON SPREADER Ot G47.33 OBSTRUCTIVE SLEEP APNEA (ADULT) (PEDIATR 09/03/2018 KITA BLACKMON SPREADER Ot I48.0 PAROXYSMAL ATRIAL FIBRILLATION 09/03/2018 KITA BLACKMON SPREADER Ot J45.909 UNSPECIFIED ASTHMA, UNCOMPLICATED 09/03/2018 VIOLETTE BLACKMONINE Judson SPREADER Ot K92.9 DISEASE OF DIGESTIVE SYSTEM, UNSPECIFIED 09/03/2018 KITA BLACKMON SPREADER Ot R59.0 LOCALIZED ENLARGED LYMPH NODES 09/03/2018 KITA BLACKMON SPREADER Ot R91.1 SOLITARY PULMONARY NODULE 09/03/2018 KITA BLACKMON SPREADER Ot Z78.9 OTHER SPECIFIED HEALTH STATUS 2018 KITA BLACKMON SPREADER Ot G47.33 OBSTRUCTIVE SLEEP APNEA (ADULT) (PEDIATR 2018 VIOLETTE BLACKMONINE Judson SPREADER Ot I48.0 PAROXYSMAL ATRIAL FIBRILLATION 2018 VIOLETTE BLACKMONINE Judson SPREADER Ot J45.909 UNSPECIFIED ASTHMA, UNCOMPLICATED 2018 VIOLETTE BLACKMONINE Judson SPREADER Ot K92.9 DISEASE OF DIGESTIVE SYSTEM, UNSPECIFIED 2018 KITA BLACKMON SPREADER Ot R59.0 LOCALIZED ENLARGED LYMPH NODES 2018 KITA BLACKMON SPREADER Ot R91.1 SOLITARY PULMONARY NODULE 2018 KITA BLACKMON SPREADER Ot Z78.9 OTHER SPECIFIED HEALTH STATUS 09/18/2018 ZHANE BOSCH SPREADER Ot M25.511 PAIN IN RIGHT SHOULDER 10/04/2018 ZHANE BOSCH SPREADER Ot M25.511 PAIN IN RIGHT SHOULDER 10/09/2018 ZHANE BOSCH SPREADER Ot M25.511 PAIN IN RIGHT SHOULDER 10/16/2018 ZHANE BOSCH SPREADER Ot M25.511 PAIN IN RIGHT SHOULDER 10/26/2018 ALEXANDRE ANTON MD Ot E03 .9 HYPOTHYROIDISM, UNSPECIFIED 10/26/2018 ALEXANDRE ANTON MD Ot E78.00 PURE HYPERCHOLESTEROLEMIA, UNSPECIFIED 10/26/2018 ALEXANDRE ANTON MD Ot F32 .9 MAJOR DEPRESSIVE DISORDER, SINGLE EPISOD 10/26/2018 ALEXANDRE ANTON MD Ot F41 .9 ANXIETY DISORDER, UNSPECIFIED 10/26/2018 ALEXANDRE ANTON MD Ot G43.909 MIGRAINE, UNSP, NOT INTRACTABLE, WITHOUT 10/26/2018 ALEXANDRE ANTON MD Ot G47.30 SLEEP APNEA, UNSPECIFIED 10/26/2018 ALEXANDRE ANTON MD Ot I10 ESSENTIAL (PRIMARY) HYPERTENSION 10/26/2018 ALEXANDRE ANTON MD Ot I25.10 ATHSCL HEART DISEASE OF [place] CORONARY 10/26/2018 ALEXANDRE ANTON MD Ot J45.909 UNSPECIFIED ASTHMA, UNCOMPLICATED 10/26/2018 ALEXANDRE ANTON MD Ot K21 .9 GASTRO-ESOPHAGEAL REFLUX DISEASE WITHOUT 10/26/2018 ALEXANDRE ANTON MD Ot M79 .7 FIBROMYALGIA 10/26/2018 ALEXANDRE ANTON MD Ot S80.12XA CONTUSION OF LEFT LOWER LEG, INITIAL ENC 10/26/2018 ALEXANDRE ANTON MD Ot S89.92XA UNSPECIFIED INJURY OF LEFT LOWER LEG, IN 10/26/2018 ALEXANDRE ANTON MD Ot Z77.22 CNTCT W AND EXPSR TO ENVIRON TOBACCO SMO 10/26/2018 ALEXANDRE ANTON MD Ot Z79.51 CORRECTION (CURRENT) USE OF INHALED STERO 10/26/2018 ALEXANDRE ANTON MD Ot Z79.82 POT OPERATOR (CURRENT) USE OF ASPIRIN 10/26/2018 ALEXANDRE ANTON MD Ot Z80 .8 FAMILY HISTORY OF MALIGNANT NEOPLASM OF 10/26/2018 ALEXANDRE ANTON MD, Ot Z82.49 FAMILY HX OF ISCHEM HEART DIS AND OTH DI 10/26/2018 ALEXANDRE ANTON MD, Ot Z88 .2 ALLERGY STATUS TO SULFONAMIDES STATUS 10/26/2018 ALEXANDRE ANTON MD, Ot Z88 .6 ALLERGY STATUS TO ANALGESIC AGENT STATUS 10/26/2018 ALEXANDRE ANTON MD, Ot Z88 .8 ALLERGY STATUS TO OTH DRUG/MEDS/BIOL SUB 10/26/2018 ALEXANDRE ANTON MD, Ot Z90.49 ACQUIRED ABSENCE OF OTHER SPECIFIED PART 10/26/2018 ALEXANDRE ANTON MD, Ot Z90.710 ACQUIRED ABSENCE OF BOTH CERVIX AND UTER 10/26/2018 ALEXANDRE ANTON MD Ot Z96.652 PRESENCE OF LEFT ARTIFICIAL KNEE JOINT 11/01/2018 ALEXANDRE ANTON MD Ot E03 .9 HYPOTHYROIDISM, UNSPECIFIED 11/01/2018 ALEXANDRE ANTON MD Ot E78.00 PURE HYPERCHOLESTEROLEMIA, UNSPECIFIED 11/01/2018 ALEXANDRE ANTON MD Ot F32 .9 MAJOR DEPRESSIVE DISORDER, SINGLE EPISOD 11/01/2018 ALEXANDRE ANTON MD, Ot F41 .9 ANXIETY DISORDER, UNSPECIFIED 11/01/2018 ALEXANDRE ANTON MD Ot G43.909 MIGRAINE, UNSP, NOT INTRACTABLE, WITHOUT 11/01/2018 ALEXANDRE ANTON MD Ot G47.30 SLEEP APNEA, UNSPECIFIED 11/01/2018 ALEXANDRE ANTON MD Ot I10 ESSENTIAL (PRIMARY) HYPERTENSION 11/01/2018 ALEXANDRE ANTON MD Ot I25.10 ATHSCL HEART DISEASE OF [place] CORONARY 11/01/2018 ALEXANDRE ANTON MD Ot J45.909 UNSPECIFIED ASTHMA, UNCOMPLICATED 11/01/2018 ALEXANDRE ANTON MD Ot K21 .9 GASTRO-ESOPHAGEAL REFLUX DISEASE WITHOUT 11/01/2018 ALEXANDRE ANTON MD Ot M79 .7 FIBROMYALGIA 11/01/2018 ALEXANDRE ANTON MD, Ot S80.12XA CONTUSION OF LEFT LOWER LEG, INITIAL ENC 11/01/2018 ALEXANDRE ANTON MD Ot S89.92XA UNSPECIFIED INJURY OF LEFT LOWER LEG, IN 11/01/2018 ALEXANDRE ANTON MD, Ot Z77.22 CNTCT W AND EXPSR TO ENVIRON TOBACCO SMO 11/01/2018 ALEXANDRE ANTON MD Ot Z79.51 POT OPERATOR (CURRENT) USE OF INHALED STERO 11/01/2018 ALEXANDRE ANTON MD, Ot Z79.82 CORRECTION (CURRENT) USE OF ASPIRIN 11/01/2018 ALEXANDRE ANTON MD Ot Z80 .8 FAMILY HISTORY OF MALIGNANT NEOPLASM OF 11/01/2018 ALEXANDRE ANTON MD Ot Z82.49 FAMILY HX OF ISCHEM HEART DIS AND OTH DI 11/01/2018 ALEXANDRE ANTON MD, Ot Z88 .2 ALLERGY STATUS TO SULFONAMIDES STATUS 11/01/2018 ALEXANDRE ANTON MD, Ot Z88 .6 ALLERGY STATUS TO ANALGESIC AGENT STATUS 11/01/2018 ALEXANDRE ANTON MD, Ot Z88 .8 ALLERGY STATUS TO OTH DRUG/MEDS/BIOL SUB 11/01/2018 ALEXANDRE ANTON MD Ot Z90.49 ACQUIRED ABSENCE OF OTHER SPECIFIED PART 11/01/2018 ALEXANDRE ANTON MD Ot Z90.710 ACQUIRED ABSENCE OF BOTH CERVIX AND UTER 11/01/2018 ALEXANDRE ANTON MD Ot Z96.652 PRESENCE OF LEFT ARTIFICIAL KNEE JOINT 11/02/2018 ALEXANDRE ANTON MD Ot E03 .9 HYPOTHYROIDISM, UNSPECIFIED 11/02/2018 ALEXANDRE ANTON MD Ot E78.00 PURE HYPERCHOLESTEROLEMIA, UNSPECIFIED 11/02/2018 ALEXANDRE ANTON MD Ot F32 .9 MAJOR DEPRESSIVE DISORDER, SINGLE EPISOD 11/02/2018 ALEXANDRE ANTON MD Ot F41 .9 ANXIETY DISORDER, UNSPECIFIED 11/02/2018 ALEXANDRE ANTON MD Ot G43.909 MIGRAINE, UNSP, NOT INTRACTABLE, WITHOUT 11/02/2018 ALEXANDRE ANTON MD Ot G47.30 SLEEP APNEA, UNSPECIFIED 11/02/2018 ALEXANDRE ANTON MD Ot I10 ESSENTIAL (PRIMARY) HYPERTENSION 11/02/2018 ALEXANDRE ANTON MD Ot I25.10 ATHSCL HEART DISEASE OF [place] CORONARY 11/02/2018 ALEXANDRE ANTON MD Ot J45.909 UNSPECIFIED ASTHMA, UNCOMPLICATED 11/02/2018 ALEXANDRE ANTON MD Ot K21 .9 GASTRO-ESOPHAGEAL REFLUX DISEASE WITHOUT 11/02/2018 ODALEXANDRE RODRIGUEZ MD, Ot M79 .7 FIBROMYALGIA 11/02/2018 ALEXANDRE ANTON MD, Ot S80.12XA CONTUSION OF LEFT LOWER LEG, INITIAL ENC 11/02/2018 ALEXANDRE ANTON MD, Ot S89.92XA UNSPECIFIED INJURY OF LEFT LOWER LEG, IN 11/02/2018 ALEXANDRE ANTON MD, Ot Z77.22 CNTCT W AND EXPSR TO ENVIRON TOBACCO SMO 11/02/2018 ALEXANDRE ANTON MD, Ot Z79.51 CORRECTION (CURRENT) USE OF INHALED STERO 11/02/2018 ALEXANDRE ANTON MD, Ot Z79.82 POT OPERATOR (CURRENT) USE OF ASPIRIN 11/02/2018 ALEXANDRE ANTON MD, Ot Z80 .8 FAMILY HISTORY OF MALIGNANT NEOPLASM OF 11/02/2018 ALEXANDRE ANTON MD, Ot Z82.49 FAMILY HX OF ISCHEM HEART DIS AND OTH DI 11/02/2018 ALEXANDRE ANTON MD, Ot Z88 .2 ALLERGY STATUS TO SULFONAMIDES STATUS 11/02/2018 ALEXANDRE ANTON MD, Ot Z88 .6 ALLERGY STATUS TO ANALGESIC AGENT STATUS 11/02/2018 ALEXANDRE ANTON MD, Ot Z88 .8 ALLERGY STATUS TO OTH DRUG/MEDS/BIOL SUB 11/02/2018 ALEXANDRE ANTON MD, Ot Z90.49 ACQUIRED ABSENCE OF OTHER SPECIFIED PART 11/02/2018 ALEXANDRE ANTON MD, Ot Z90.710 ACQUIRED ABSENCE OF BOTH CERVIX AND UTER 11/02/2018 ALEXANDRE ANTON MD Ot Z96.652 PRESENCE OF LEFT ARTIFICIAL KNEE JOINT 11/07/2018 ZHANE BOSCH APRN Ot M25.511 PAIN IN RIGHT SHOULDER 11/12/2018 CARROLL MACK APRN Ot L97.222 NON-PRESSURE CHRONIC ULCER OF LEFT CALF 11/20/2018 RUSTAM YANG MD Ot I87.332 CHRONIC VENOUS HTN W ULCER AND INFLAMMAT 11/20/2018 RUSTAM YANG MD Ot L97.222 NON-PRESSURE CHRONIC ULCER OF LEFT CALF 11/20/2018 RUSTAM YANG MD Ot L98.422 NON-PRESSURE CHRONIC ULCER OF BACK WITH 11/22/2018 RUSTAM YANG MD Ot G60 .8 OTHER HEREDITARY AND IDIOPATHIC NEUROPAT 11/22/2018 RUSTAM YANG MD Ot I87.332 CHRONIC VENOUS HTN W ULCER AND INFLAMMAT 11/22/2018 RUSTAM YANG MD Ot I96 GANGRENE, NOT ELSEWHERE CLASSIFIED 11/22/2018 RUSTAM YANG MD Ot L97.222 NON-PRESSURE CHRONIC ULCER OF LEFT CALF 11/22/2018 ZHANE BOSCH SPREADER Ot Z12.31 ENCNTR SCREEN MAMMOGRAM FOR MALIGNANT NE 11/22/2018 RUSTAM YANG MD Ot G60 .8 OTHER HEREDITARY AND IDIOPATHIC NEUROPAT 11/22/2018 RUSTAM YANG MD Ot I87.332 CHRONIC VENOUS HTN W ULCER AND INFLAMMAT 11/22/2018 RUSTAM YANG MD Ot I96 GANGRENE, NOT ELSEWHERE CLASSIFIED 11/22/2018 RUSTAM YANG MD Ot L97.222 NON-PRESSURE CHRONIC ULCER OF LEFT CALF 11/26/2018 CARROLL MACK SPREADER Ot I 96 GANGRENE, NOT ELSEWHERE CLASSIFIED 11/26/2018 CARROLL MACK SPREADER Ot L97.222 NON-PRESSURE CHRONIC ULCER OF LEFT CALF 11/26/2018 CARROLL MACK SPREADER Ot L98.422 NON-PRESSURE CHRONIC ULCER OF BACK WITH 11/27/2018 ZHANE BOSCH SPREADER Ot Z12.31 ENCNTR SCREEN MAMMOGRAM FOR MALIGNANT NE 11/28/2018 CARROLL MACK SPREADER Ot I 96 GANGRENE, NOT ELSEWHERE CLASSIFIED 11/28/2018 CARROLL MACK SPREADER Ot L97.222 NON-PRESSURE CHRONIC ULCER OF LEFT CALF 11/28/2018 CARROLL MACK SPREADER Ot L98.422 NON-PRESSURE CHRONIC ULCER OF BACK WITH 11/29/2018 ZHANE BOSCH SPREADER Ot Z12.31 ENCNTR SCREEN MAMMOGRAM FOR MALIGNANT NE 11/29/2018 CARROLL MACK SPREADER Ot L97.222 NON-PRESSURE CHRONIC ULCER OF LEFT CALF 12/05/2018 RUSTAM YANG MD Ot G60 .8 OTHER HEREDITARY AND IDIOPATHIC NEUROPAT 12/05/2018 RUSTAM YANG MD Ot I87.332 CHRONIC VENOUS HTN W ULCER AND INFLAMMAT 12/05/2018 RUSTAM YANG MD Ot I96 GANGRENE, NOT ELSEWHERE CLASSIFIED 12/05/2018 RUSTAM YANG MD Ot L97.222 NON-PRESSURE CHRONIC ULCER OF LEFT CALF 12/06/2018 RUSTAM YANG MD Ot I87.332 CHRONIC VENOUS HTN W ULCER AND INFLAMMAT 12/06/2018 RUSTAM YANG MD Ot L97.222 NON-PRESSURE CHRONIC ULCER OF LEFT CALF 12/06/2018 RUSTAM YANG MD Ot L98.422 NON-PRESSURE CHRONIC ULCER OF BACK WITH 12/10/2018 CARROLL MACK SPREADER Ot D63.1 ANEMIA IN CHRONIC KIDNEY DISEASE 12/10/2018 CARROLL MACK R SPREADER Ot F03.90 UNSPECIFIED DEMENTIA WITHOUT BEHAVIORAL 12/10/2018 CARROLL MACK R SPREADER Ot F41.8 OTHER SPECIFIED ANXIETY DISORDERS 12/10/2018 FREDERICK CARROLL R SPREADER Ot G47.30 SLEEP APNEA, UNSPECIFIED 12/10/2018 SRINIVASA MACKN R SPREADER Ot H26.9 UNSPECIFIED CATARACT 12/10/2018 CARROLL MACK R SPREADER Ot I12.0 HYP CHR KIDNEY DISEASE W STAGE 5 CHR KID 12/10/2018 CARROLL MACK R SPREADER Ot I25.10 ATHSCL HEART DISEASE OF [place] CORONARY 12/10/2018 SRINIVASA MACKN R SPREADER Ot I49.9 CARDIAC ARRHYTHMIA, UNSPECIFIED 12/10/2018 FREDERICK CARROLL R SPREADER Ot I 96 GANGRENE, NOT ELSEWHERE CLASSIFIED 12/10/2018 FREDERICK CARROLL R SPREADER Ot L97.222 NON-PRESSURE CHRONIC ULCER OF LEFT CALF 12/10/2018 CARROLL MACK R SPREADER Ot M19.90 UNSPECIFIED OSTEOARTHRITIS, UNSPECIFIED 12/10/2018 FREDERICK CARROLL R SPREADER Ot N18.6 END STAGE RENAL DISEASE 12/12/2018 SRINIVASA MACKN R SPREADER Ot I 96 GANGR[place], NOT ELSEWHERE CLASSIFIED 12/12/2018 CARROLL MACK R SPREADER Ot L97.222 NON-PRESSURE CHRONIC ULCER OF LEFT CALF 12/12/2018 FREDERICK CARROLL R SPREADER Ot L98.422 NON-PRESSURE CHRONIC ULCER OF BACK WITH 12/13/2018 ZHANE BOSCH SPREADER Ot Z12.31 ENCNTR SCREEN MAMMOGRAM FOR MALIGNANT NE 12/13/2018 RUSTAM YANG MD Ot D64 .9 ANEMIA, UNSPECIFIED 12/13/2018 RUSTAM YANG MD Ot F03.90 UNSPECIFIED DEMENTIA WITHOUT BEHAVIORAL 12/13/2018 RUSTAM YANG MD Ot F41 .8 OTHER SPECIFIED ANXIETY DISORDERS 12/13/2018 RUSTAM YANG MD, Ot G47.30 SLEEP APNEA, UNSPECIFIED 12/13/2018 RUSTAM YANG MD Ot H26 .9 UNSPECIFIED CATARACT 12/13/2018 RUSTAM YANG MD, Ot I12 .0 HYP CHR KIDNEY DISEASE W STAGE 5 CHR KID 12/13/2018 RUSTAM YANG MD, Ot I25.10 ATHSCL HEART DISEASE OF [place] CORONARY 12/13/2018 RUSTAM YANG MD Ot I49 .9 CARDIAC ARRHYTHMIA, UNSPECIFIED 12/13/2018 RUSTAM YANG MD, Ot J45.909 UNSPECIFIED ASTHMA, UNCOMPLICATED 12/13/2018 RUSTAM YANG MD, Ot L97.222 NON-PRESSURE CHRONIC ULCER OF LEFT CALF 12/13/2018 RUSTAM YANG MD Ot M19.91 PRIMARY OSTEOARTHRITIS, UNSPECIFIED SITE 12/13/2018 RUSTAM YANG MD, Ot N18 .6 END STAGE RENAL DISEASE 12/19/2018 RUSTAM YANG MD Ot G60 .8 OTHER HEREDITARY AND IDIOPATHIC NEUROPAT 12/19/2018 RUSTAM YANG MD Ot I87.332 CHRONIC VENOUS HTN W ULCER AND INFLAMMAT 12/19/2018 RUSTAM YANG MD Ot I96 GANGRENE, NOT ELSEWHERE CLASSIFIED 12/19/2018 RUSTAM YANG MD Ot L97.222 NON-PRESSURE CHRONIC ULCER OF LEFT CALF 12/20/2018 RUSTAM YANG MD Ot G60 .8 OTHER HEREDITARY AND IDIOPATHIC NEUROPAT 12/20/2018 RUSTAM YANG MD Ot I87.332 CHRONIC VENOUS HTN W ULCER AND INFLAMMAT 12/20/2018 RUSTAM YANG MD, Ot I96 [place]ANGRENE, NOT ELSEWHERE CLASSIFIED 12/20/2018 RUSTAM YANG MD Ot L97.222 NON-PRESSURE CHRONIC ULCER OF LEFT CALF 12/20/2018 ZHANE BOSCH APRN Ot Z12.31 ENCNTR SCREEN MAMMOGRAM FOR MALIGNANT NE 12/20/2018 RUSTAM YANG MD Ot G60 .8 OTHER HEREDITARY AND IDIOPATHIC NEUROPAT 12/20/2018 RUSTAM YANG MD Ot I87.332 CHRONIC VENOUS HTN W ULCER AND INFLAMMAT 12/20/2018 RUSTAM YANG MD Ot I96 [place]ANGR[place], NOT ELSEWHERE CLASSIFIED 12/20/2018 RUSTAM YANG MD Ot L97.222 NON-PRESSURE CHRONIC ULCER OF LEFT CALF 12/25/2018 TREY MD, RUSTAM G Ot G60 .8 OTHER HEREDITARY AND IDIOPATHIC NEUROPAT 12/25/2018 RUSTAM YANG MD Ot I87.332 CHRONIC VENOUS HTN W ULCER AND INFLAMMAT 12/25/2018 RUSTAM YANG MD Ot I96 [place], NOT ELSEWHERE CLASSIFIED 12/25/2018 RUSTAM YANG MD Ot L97.222 NON-PRESSURE CHRONIC ULCER OF LEFT CALF 12/26/2018 RUSTAM YANG MD Ot G60 .8 OTHER HEREDITARY AND IDIOPATHIC NEUROPAT 12/26/2018 RUSTAM YANG MD Ot I87.332 CHRONIC VENOUS HTN W ULCER AND INFLAMMAT 12/26/2018 RUSTAM YANG MD, Ot I96 [place]ANGR[place], NOT ELSEWHERE CLASSIFIED 12/26/2018 RUSTAM YANG MD, Ot L97.222 NON-PRESSURE CHRONIC ULCER OF LEFT CALF 12/30/2018 RUSTAM YANG MD, Ot G60 .8 OTHER HEREDITARY AND IDIOPATHIC NEUROPAT 12/30/2018 RUSTAM YANG MD Ot I87.332 CHRONIC VENOUS HTN W ULCER AND INFLAMMAT 12/30/2018 RUSTAM YANG MD Ot I96 GANGRENE, NOT ELSEWHERE CLASSIFIED 12/30/2018 RUSTAM YANG MD Ot L97.222 NON-PRESSURE CHRONIC ULCER OF LEFT CALF 12/30/2018 CARROLL MACK SPREADER Ot D63.1 ANEMIA IN CHRONIC KIDNEY DISEASE 12/30/2018 CARROLL MACK SPREADER Ot F03.90 UNSPECIFIED DEMENTIA WITHOUT BEHAVIORAL 12/30/2018 CARROLL MACK SPREADER Ot F41.8 OTHER SPECIFIED ANXIETY DISORDERS 12/30/2018 CARROLL MACK SPREADER Ot G47.30 SLEEP APNEA, UNSPECIFIED 12/30/2018 CARROLL MACK SPREADER Ot H26.9 UNSPECIFIED CATARACT 12/30/2018 CARROLL MACK SPREADER Ot I12.0 HYP CHR KIDNEY DISEASE W STAGE 5 CHR KID 12/30/2018 CARROLL MACK SPREADER Ot I25.10 ATHSCL HEART DISEASE OF [place] CORONARY 12/30/2018 CARROLL MACK SPREADER Ot I49.9 CARDIAC ARRHYTHMIA, UNSPECIFIED 12/30/2018 CARROLL MACK SPREADER Ot I 96 GANGRENE, NOT ELSEWHERE CLASSIFIED 12/30/2018 CARROLL MACK SPREADER Ot L97.222 NON-PRESSURE CHRONIC ULCER OF LEFT CALF 12/30/2018 CARROLL MACK APRN Ot M19.90 UNSPECIFIED OSTEOARTHRITIS, UNSPECIFIED 12/30/2018 CARROLL MACK APRN Ot N18.6 END STAGE RENAL DISEASE 01/02/2019 RUSTAM YANG MD, Ot G60 .8 OTHER HEREDITARY AND IDIOPATHIC NEUROPAT 01/02/2019 RUSTAM YANG MD, Ot I87.332 CHRONIC VENOUS HTN W ULCER AND INFLAMMAT 01/02/2019 RSUTAM YANG MD, Ot I96 GANGRENE, NOT ELSEWHERE CLASSIFIED 01/02/2019 RUSTAM YANG MD, Ot L97.222 NON-PRESSURE CHRONIC ULCER OF LEFT CALF 01/09/2019 RUSTAM YANG MD, Ot G60 .8 OTHER HEREDITARY AND IDIOPATHIC NEUROPAT 01/09/2019 RUSTAM YANG MD, Ot I87.332 CHRONIC VENOUS HTN W ULCER AND INFLAMMAT 01/09/2019 RUSTAM YANG MD, Ot I96 [place]ANGRENE, NOT ELSEWHERE CLASSIFIED 01/09/2019 RUSTAM YANG MD, Ot L97.222 NON-PRESSURE CHRONIC ULCER OF LEFT CALF 01/09/2019 RUSTAM YANG MD, Ot G60 .8 OTHER HEREDITARY AND IDIOPATHIC NEUROPAT 01/09/2019 RUSTAM YANG MD, Ot I87.332 CHRONIC VENOUS HTN W ULCER AND INFLAMMAT 01/09/2019 RUSTAM YANG MD, Ot I96 GANGRENE, NOT ELSEWHERE CLASSIFIED 01/09/2019 RUSTAM YANG MD, Ot L97.222 NON-PRESSURE CHRONIC ULCER OF LEFT CALF 01/13/2019 ELROY PERAZA DO Ot M75.01 ADHESIVE CAPSULITIS OF RIGHT SHOULDER 01/14/2019 RUSTAM YANG MD Ot D64 .9 ANEMIA, UNSPECIFIED 01/14/2019 RUSTAM YANG MD Ot F03.90 UNSPECIFIED DEMENTIA WITHOUT BEHAVIORAL 01/14/2019 RUSTAM YANG MD, Ot F41 .8 OTHER SPECIFIED ANXIETY DISORDERS 01/14/2019 RUSTAM YANG MD Ot G47.30 SLEEP APNEA, UNSPECIFIED 01/14/2019 RUSTAM YANG MD, Ot H26 .9 UNSPECIFIED CATARACT 01/14/2019 RUSTAM YANG MD, Ot I12 .0 HYP CHR KIDNEY DISEASE W STAGE 5 CHR KID 01/14/2019 RUSTAM YANG MD Ot I25.10 ATHSCL HEART DISEASE OF [place] CORONARY 01/14/2019 RUSTAM YANG MD Ot I49 .9 CARDIAC ARRHYTHMIA, UNSPECIFIED 01/14/2019 RUSTAM YANG MD Ot J45.909 UNSPECIFIED ASTHMA, UNCOMPLICATED 01/14/2019 RUSTAM YANG MD, Ot L97.222 NON-PRESSURE CHRONIC ULCER OF LEFT CALF 01/14/2019 RUSTAM YANG MD, Ot M19.91 PRIMARY OSTEOARTHRITIS, UNSPECIFIED SITE 01/14/2019 RUSTAM YANG MD Ot N18 .6 END STAGE RENAL DISEASE 01/15/2019 RUSTAM YANG MD, Ot G60 .8 OTHER HEREDITARY AND IDIOPATHIC NEUROPAT 01/15/2019 RUSTAM YANG MD, Ot I87.332 CHRONIC VENOUS HTN W ULCER AND INFLAMMAT 01/15/2019 RUSTAM YANG MD, Ot I96 GANGRENE, NOT ELSEWHERE CLASSIFIED 01/15/2019 RUSTAM YANG MD, Ot L97.222 NON-PRESSURE CHRONIC ULCER OF LEFT CALF 01/16/2019 ELROY PERAZA DO F Ot M75.01 ADHESIVE CAPSULITIS OF RIGHT SHOULDER 01/16/2019 RUSTAM YANG MD, Ot G60 .8 OTHER HEREDITARY AND IDIOPATHIC NEUROPAT 01/16/2019 RUSTAM YANG MD, Ot I87.332 CHRONIC VENOUS HTN W ULCER AND INFLAMMAT 01/16/2019 RUSTAM YANG MD, Ot I96 GANGRENE, NOT ELSEWHERE CLASSIFIED 01/16/2019 RUSTAM YANG MD, Ot L97.222 NON-PRESSURE CHRONIC ULCER OF LEFT CALF 01/17/2019 STU DO ELROY F Ot M75.102 UNSP ROTATR-CUFF TEAR/RUPTR OF LEFT SHOU 01/17/2019 ELROY PERAZA DO F Ot S43.402A UNSPECIFIED SPRAIN OF LEFT SHOULDER JOIN 01/20/2019 RUSTAM YANG MD, Ot G60 .8 OTHER HEREDITARY AND IDIOPATHIC NEUROPAT 01/20/2019 RUSTAM YANG MD, Ot I87.332 CHRONIC VENOUS HTN W ULCER AND INFLAMMAT 01/20/2019 RUSTAM YANG MD, Ot L97.222 NON-PRESSURE CHRONIC ULCER OF LEFT CALF 01/21/2019 ELROY PERAZA DO F Ot M75.102 UNSP ROTATR-CUFF TEAR/RUPTR OF LEFT SHOU 01/21/2019 STU DOELROY F Ot S43.402A UNSPECIFIED SPRAIN OF LEFT SHOULDER JOIN 01/24/2019 RUSTAM YANG MD, Ot G60 .8 OTHER HEREDITARY AND IDIOPATHIC NEUROPAT 01/24/2019 RUSTAM YANG MD, Ot I87.332 CHRONIC VENOUS HTN W ULCER AND INFLAMMAT 01/24/2019 RUSTAM YANG MD, Ot I96 GANGRENE, NOT ELSEWHERE CLASSIFIED 01/24/2019 RUSTAM YANG MD, Ot L97.222 NON-PRESSURE CHRONIC ULCER OF LEFT CALF 01/24/2019 RUSTAM YANG MD, Ot G60 .8 OTHER HEREDITARY AND IDIOPATHIC NEUROPAT 01/24/2019 RUSTAM YANG MD, Ot I87.332 CHRONIC VENOUS HTN W ULCER AND INFLAMMAT 01/24/2019 RUSTAM YANG MD, Ot I96 GANGRENE, NOT ELSEWHERE CLASSIFIED 01/24/2019 RUSTAM YANG MD, Ot L97.222 NON-PRESSURE CHRONIC ULCER OF LEFT CALF 01/31/2019 RUSTAM YANG MD, Ot G60 .8 OTHER HEREDITARY AND IDIOPATHIC NEUROPAT 01/31/2019 RUSTAM YANG MD, Ot I87.332 CHRONIC VENOUS HTN W ULCER AND INFLAMMAT 01/31/2019 RUSTAM YANG MD, Ot I96 GANGRENE, NOT ELSEWHERE CLASSIFIED 01/31/2019 RUSTAM YANG MD, Ot L97.222 NON-PRESSURE CHRONIC ULCER OF LEFT CALF 02/05/2019 RUSTAM YANG MD, Ot G60 .8 OTHER HEREDITARY AND IDIOPATHIC NEUROPAT 02/05/2019 RUSTAM YANG MD, Ot I87.332 CHRONIC VENOUS HTN W ULCER AND INFLAMMAT 02/05/2019 RUSTAM YANG MD, Ot I96 GANGRENE, NOT ELSEWHERE CLASSIFIED 02/05/2019 RUSTAM YANG MD, Ot L97.222 NON-PRESSURE CHRONIC ULCER OF LEFT CALF 02/06/2019 ELROY PERAZA DO Ot M75.102 UNSP ROTATR-CUFF TEAR/RUPTR OF LEFT SHOU 02/06/2019 ELROY PERAZA DO Ot S43.402A UNSPECIFIED SPRAIN OF LEFT SHOULDER JOIN 02/12/2019 KITA BLACKMON APRN Ot R91.1 SOLITARY PULMONARY NODULE 02/12/2019 KITA BLACKMON APRN Ot Z84.1 FAMILY HISTORY OF DISORDERS OF KIDNEY AN 02/13/2019 SHANTELLE HAWTHORNE Ot I10 ESSENTIAL (PRIMARY) HYPERTENSION 02/13/2019 SHANTELLE HAWTHORNE Ot I25.10 ATHSCL HEART DISEASE OF [place] CORONARY 02/13/2019 SHANTELLE HAWTHORNE Ot I49.1 ATRIAL PREMATURE DEPOLARIZATION 02/13/2019 SHANTELLE HAWTHORNE Ot I49.3 VENTRICULAR PREMATURE DEPOLARIZATION 02/13/2019 STU DO ELROY Thomson Ot M75.01 ADHESIVE CAPSULITIS OF RIGHT SHOULDER 02/13/2019 STU DO, ELROY Thomson Ot M75.102 UNSP ROTATR-CUFF TEAR/RUPTR OF LEFT SHOU 02/13/2019 STU DO ELROY Thomson Ot S43.402A UNSPECIFIED SPRAIN OF LEFT SHOULDER JOIN 02/13/2019 RUSTAM YANG MD Ot G60 .8 OTHER HEREDITARY AND IDIOPATHIC NEUROPAT 02/13/2019 RUSTAM YANG MD Ot I87.332 CHRONIC VENOUS HTN W ULCER AND INFLAMMAT 02/13/2019 RUSTAM YANG MD Ot L97.222 NON-PRESSURE CHRONIC ULCER OF LEFT CALF 02/27/2019 Ot 333.99 02/27/2019 Ot 780.58 02/27/2019 Ot 218.9 02/27/2019 Ot 218.9 02/27/2019 Ot 244.9 02/27/2019 Ot 346.90 02/27/2019 Ot 401.9 02/27/2019 Ot 424.0 02/27/2019 Ot 493.90 02/27/2019 Ot 530.81 02/27/2019 Ot 620.2 02/27/2019 Ot 626.2 02/27/2019 Ot V58.69 02/27/2019 Ot V72.81 02/27/2019 Ot V72.83 02/27/2019 Ot 780.79 02/27/2019 Ot 478.19 OTH ER DISEASE OF NASAL CAVITY AND SINUSE 02/27/2019 Ot 719.46 LETY NT PAIN-L/LEG 02/27/2019 Ot 719.45 LETY NT PAIN-PELVIS 02/27/2019 Ot 354.0 CARP AL TUNNEL SYNDROME 02/27/2019 Ot V72.83 EXA M PRE- OPERATIVE NEC 02/27/2019 Ot V74.8 SCRE EN-BACTERIAL DIS NEC 02/27/2019 Ot 354.0 CARP AL TUNNEL SYNDROME 02/27/2019 Ot V72.83 EXA M PRE- OPERATIVE NEC 02/27/2019 Ot V74.8 SCRE EN-BACTERIAL DIS NEC 02/27/2019 Ot 414.9 CHR ISCHEMIC HRT DIS NOS 02/27/2019 Ot 786.05 CARMEN RTNESS OF BREATH 02/27/[address] PAIN NOS 02/27/2019 Ot 397.0 TRIC USPID VALVE DISEASE 02/27/[address] PAIN NOS 02/27/2019 Ot V58.69 OTH MED,LT,CURRENT USE 02/27/2019 Ot V64.3 NO P DALIA FOR REASONS NEC 02/27/2019 Ot 786.05 CARMEN RTNESS OF BREATH 02/27/[address] PAIN NOS 02/27/2019 Ot 530.6 ACQ ESOPHAG DIVERTICULUM 02/27/2019 Ot 586 RENAL FAILURE NOS 02/27/2019 Ot 587 RENAL SCLEROSIS NOS 02/27/2019 Ot 787.20 DYS PHAGIA, UNSPECIFIED 02/27/2019 OG DE LEON DO Ot R91. 1 SOLITARY PULMONARY NODULE 02/27/2019 KERA MARINA Ot V76.12 OTH SCREEN MAMMO-MALIGN NEOPLASM OF CHARLIE 02/27/2019 DAVID DOHERTY, ARUNA Hernandez Ot 414. 00 CORON ATHEROSCLER NOS TYPE VESSEL, NATIV 02/27/2019 DAVID DOHERTY, ARUNA Hernandez Ot 427. 31 ATRIAL FIBRILLATION 02/27/2019 DAVID DOHERTY, ARUNA Hernandez Ot 786. 50 CHEST PAIN NOS 02/27/2019 BEVERLY WHITMORE DO Ot K22. 5 DIVERTICULUM OF ESOPHAGUS, ACQUIRED 02/27/2019 BEVERLY WHITMORE DO Ot R13. 10 DYSPHAGIA, UNSPECIFIED 02/27/2019 ISABEL MAE UPHOLSTERY COVERS INSPECTOR Ot Z12.31 ENCNTR SCREEN MAMMOGRAM FOR MALIGNANT NE 02/27/2019 ISABEL MAE UPHOLSTERY COVERS INSPECTOR Ot E55 .9 VITAMIN D DEFICIENCY, UNSPECIFIED 02/27/2019 ISABEL MAE UPHOLSTERY COVERS INSPECTOR Ot M85.89 OTH DISRD OF BONE DENSITY AND STRUCTURE, 02/27/2019 JULIAN DOHERTY, RUSTAM Guerra Ot M17.11 UNILATERAL PRIMARY OSTEOARTHRITIS, RIGHT 02/27/2019 RUSTAM JORDAN MD Ot M17.12 UNILATERAL PRIMARY OSTEOARTHRITIS, LEFT 02/27/2019 RUSTAM JORDAN MD Ot M54.16 RADICULOPATHY, LUMBAR REGION 02/27/2019 BRENTON BENNETT MD Ot E66. 01 MORBID (SEVERE) OBESITY DUE TO EXCESS CA 02/27/2019 BRENTON BENNETT MD Ot M47.816 SPONDYLOSIS W/O MYELOPATHY OR RADICULOPA 02/27/2019 BRENTON BENNETT MD Ot M53. 3 SACROCOCCYGEAL DISORDERS, NOT ELSEWHERE 02/27/2019 BRENTON BENNETT MD Ot M79. 7 FIBROMYALGIA 02/27/2019 BRENTON BENNETT MD Ot Z68. 41 BODY MASS INDEX (BMI) 40.0-44.9, ADULT 02/27/2019 BRENTON BENNETT MD, Ot Z79.899 OTHER POT OPERATOR (CURRENT) DRUG THERAPY 02/27/2019 TUISABEL SAGE Ot Z12.31 ENCNTR SCREEN MAMMOGRAM FOR MALIGNANT NE 02/27/2019 SHANTELLE HAWTHORNE Ot I07.1 RHEUMATIC TRICUSPID INSUFFICIENCY 02/27/2019 SHANTELLE HAWTHORNE Ot I10 ESSENTIAL (PRIMARY) HYPERTENSION 02/27/2019 SHANTELLE HAWTHORNE Ot I25.10 ATHSCL HEART DISEASE OF [place] CORONARY 02/27/2019 SHANTELLE HAWTHORNE Ot R00.2 PALPITATIONS 02/27/2019 SHANTELLE HAWTHORNE Ot R42 DIZZINESS AND GIDDINESS 02/27/2019 VIGNESH THAKUR MD Ot D63.1 ANEMIA IN CHRONIC KIDNEY DISEASE 02/27/2019 VIGNESH THAKUR MD S Ot E55.9 VITAMIN D DEFICIENCY, UNSPECIFIED 02/27/2019 VIGNESH THAKUR MD S Ot E61.1 IRON DEFICIENCY 02/27/2019 VIGNESH THAKUR MD S Ot E78.5 HYPERLIPIDEMIA, UNSPECIFIED 02/27/2019 BLAZE DOHERTY, VIGNESH S Ot E87.2 ACIDOSIS 02/27/2019 VIGNESH THAKUR MD S Ot E87.3 ALKALOSIS 02/27/2019 VIGNESH THAKUR MD S Ot E87.5 HYPERKALEMIA 02/27/2019 VIGNESH THAKUR MD S Ot I12.9 HYPERTENSIVE CHRONIC KIDNEY DISEASE W ST 02/27/2019 VIGNESH THAKUR MD S Ot N17.9 ACUTE KIDNEY FAILURE, UNSPECIFIED 02/27/2019 VIGNESH THAKUR MD S Ot N18.4 CHRONIC KIDNEY DISEASE, STAGE 4 (SEVERE) 02/27/2019 BLAZE DOHERTY, VIGNESH S Ot N25.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 02/27/2019 BLAZE DOHERTY, VIGNESH S Ot R80.9 PROTEINURIA, UNSPECIFIED 02/27/2019 BLAZE DOHERTY, VIGNESH S Ot D63.1 ANEMIA IN CHRONIC KIDNEY DISEASE 02/27/2019 VIGNESH THAKUR MD S Ot E55.9 VITAMIN D DEFICIENCY, UNSPECIFIED 02/27/2019 BLAZE DOHERTY, VIGNESH S Ot E61.1 IRON DEFICIENCY 02/27/2019 BLAZE DOHERTY, VIGNESH S Ot E78.5 HYPERLIPIDEMIA, UNSPECIFIED 02/27/2019 BLAZE DOHERTY, VIGNESH S Ot E87.2 ACIDOSIS 02/27/2019 BLAZE DOHERTY, VIGNESH S Ot E87.3 ALKALOSIS 02/27/2019 VIGNESH THAKUR MD S Ot I12.9 HYPERTENSIVE CHRONIC KIDNEY DISEASE W ST 02/27/2019 BLAZE DOHERTY, VIGNESH S Ot N17.9 ACUTE KIDNEY FAILURE, UNSPECIFIED 02/27/2019 BLAZE DOHERTY, VIGNESH S Ot N18.4 CHRONIC KIDNEY DISEASE, STAGE 4 (SEVERE) 02/27/2019 BLAZE DOHERTY, VIGNESH S Ot N25.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 02/27/2019 VIGNESH THAKUR MD S Ot R80.9 PROTEINURIA, UNSPECIFIED 02/27/2019 BLAZE DOHERTY, VIGNESH S Ot D63.1 ANEMIA IN CHRONIC KIDNEY DISEASE 02/27/2019 BLAZE DOHERTY, VIGNESH S Ot E55.9 VITAMIN D DEFICIENCY, UNSPECIFIED 02/27/2019 BLAZE DOHERTY, VIGNESH S Ot E61.1 IRON DEFICIENCY 02/27/2019 BLAZE DOHERTY, VIGNESH S Ot E78.5 HYPERLIPIDEMIA, UNSPECIFIED 02/27/2019 BLAZE DOHERTY, VIGNESH S Ot E87.2 ACIDOSIS 02/27/2019 BLAZE DOHERTY, AHALBINO S Ot E87.3 ALKALOSIS 02/27/2019 BLAZE DOHERTY, VIGNESH S Ot E87.5 HYPERKALEMIA 02/27/2019 BLAZE DOHERTY, VIGNESH Proctor Ot I12.9 HYPERTENSIVE CHRONIC KIDNEY DISEASE W ST 02/27/2019 BLAZE DOHERTY, VIGNESH Proctor Ot N17.9 ACUTE KIDNEY FAILURE, UNSPECIFIED 02/27/2019 BLAZE DOHERTY, VIGNESH Proctor Ot N18.4 CHRONIC KIDNEY DISEASE, STAGE 4 (SEVERE) 02/27/2019 BLAZE DOHERTY, VIGNESH Proctor Ot N25.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 02/27/2019 BLAZE DOHERTY, VIGNESH Proctor Ot R80.9 PROTEINURIA, UNSPECIFIED 02/27/2019 ISABEL MAE UPHOLSTERY COVERS INSPECTOR Ot Z53 .9 PROCEDURE AND TREATMENT NOT CARRIED OUT, 02/27/2019 NEW GE G. FREELANCE DIRECTOR-C Ot D63.1 ANEMIA IN CHRONIC KIDNEY DISEASE 02/27/2019 NEW GE G. FREELANCE DIRECTOR-C Ot E55.9 VITAMIN D DEFICIENCY, UNSPECIFIED 02/27/2019 NEW GE G. FREELANCE DIRECTOR-C Ot E61.1 IRON DEFICIENCY 02/27/2019 NEW GE G. FREELANCE DIRECTOR-C Ot E78.5 HYPERLIPIDEMIA, UNSPECIFIED 02/27/2019 NEW, GE G. FREELANCE DIRECTOR-C Ot E87.2 ACIDOSIS 02/27/2019 NEW, GE G. FREELANCE DIRECTOR-C Ot E87.3 ALKALOSIS 02/27/2019 NEW, GE G. FREELANCE DIRECTOR-C Ot E87.5 HYPERKALEMIA 02/27/2019 NEW GE G. FREELANCE DIRECTOR-C Ot I12.9 HYPERTENSIVE CHRONIC KIDNEY DISEASE W ST 02/27/2019 NEW GE G. FREELANCE DIRECTOR-C Ot N18.4 CHRONIC KIDNEY DISEASE, STAGE 4 (SEVERE) 02/27/2019 NEW GE G. FREELANCE DIRECTOR-C Ot N25.8 1 SECONDARY HYPERPARATHYROIDISM OF RENAL O 02/27/2019 NEW, GE G. FREELANCE DIRECTOR-C Ot R80.9 PROTEINURIA, UNSPECIFIED 02/27/2019 NEW, GE G. FREELANCE DIRECTOR-C Ot R82.9 0 UNSPECIFIED ABNORMAL FINDINGS IN URINE 02/27/2019 ZHANE BOSCH APRN Ot Z12.31 ENCNTR SCREEN MAMMOGRAM FOR MALIGNANT NE 02/27/2019 ISABEL MAE UPHOLSTERY COVERS INSPECTOR Ot J90 PLEURAL EFFUSION, NOT ELSEWHERE CLASSIFI 02/27/2019 MYESHA THAKUR MD, Ot D63.1 ANEMIA IN CHRONIC KIDNEY DISEASE 02/27/2019 MYESHA THAKUR MD Ot E55.9 VITAMIN D DEFICIENCY, UNSPECIFIED 02/27/2019 MYESHA THAKUR MD Ot E61.1 IRON DEFICIENCY 02/27/2019 MYESHA THAKUR MD Ot E78.5 HYPERLIPIDEMIA, UNSPECIFIED 02/27/2019 MYESHA THAKUR MD Ot E87.2 ACIDOSIS 02/27/2019 MYESHA THAKUR MD Ot E87.3 ALKALOSIS 02/27/2019 MYESHA THAKUR MD Ot E87.5 HYPERKALEMIA 02/27/2019 MYESHA THAKUR MD Ot I12.9 HYPERTENSIVE CHRONIC KIDNEY DISEASE W ST 02/27/2019 MYESHA THAKUR MD Ot N17.9 ACUTE KIDNEY FAILURE, UNSPECIFIED 02/27/2019 MYESHA THAKUR MD Ot N18.4 CHRONIC KIDNEY DISEASE, STAGE 4 (SEVERE) 02/27/2019 MYESHA THAKUR MD Ot N25.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 02/27/2019 MYESHA THAKUR MD Ot R80.9 PROTEINURIA, UNSPECIFIED 02/27/2019 ARUNA HERNANDEZ MD Ot E66. 01 MORBID (SEVERE) OBESITY DUE TO EXCESS CA 02/27/2019 ARUNA HERNANDEZ MD Ot I10 ESSENTIAL (PRIMARY) HYPERTENSION 02/27/2019 ARUNA HERNANDEZ MD Ot I25. 10 ATHSCL HEART DISEASE OF [place] CORONARY 02/27/2019 ARUNA HERNANDEZ MD Ot I48. 0 PAROXYSMAL ATRIAL FIBRILLATION 02/27/2019 ARUNA HERNANDEZ MD Ot M79. 7 FIBROMYALGIA 02/27/2019 ARUNA HERNANDEZ MD Ot R06. 02 SHORTNESS OF BREATH 02/27/2019 ARUNA HERNANDEZ MD Ot R07. 89 OTHER CHEST PAIN 02/27/2019 ARUNA HERNANDEZ MD Ot Z68. 35 BODY MASS INDEX (BMI) 35.0-35.9, ADULT 02/27/2019 MYESHA THAKUR MD Ot D63.1 ANEMIA IN CHRONIC KIDNEY DISEASE 02/27/2019 MYESHA THAKUR MD Ot E55.9 VITAMIN D DEFICIENCY, UNSPECIFIED 02/27/2019 MYESHA THAKUR MD Ot E61.1 IRON DEFICIENCY 02/27/2019 MYESHA THAKUR MD Ot E78.5 HYPERLIPIDEMIA, UNSPECIFIED 02/27/2019 BLAZE DOHERTY, MYESHA Ot E87.2 ACIDOSIS 02/27/2019 MYESHA THAKUR MD Ot E87.3 ALKALOSIS 02/27/2019 MYESHA THAKUR MD Ot E87.5 HYPERKALEMIA 02/27/2019 BLAZE DOHERTY, MYESHA Ot I12.9 HYPERTENSIVE CHRONIC KIDNEY DISEASE W ST 02/27/2019 MYESHA THAKUR MD Ot N17.9 ACUTE KIDNEY FAILURE, UNSPECIFIED 02/27/2019 MYESHA THAKUR MD Ot N18.4 CHRONIC KIDNEY DISEASE, STAGE 4 (SEVERE) 02/27/2019 INDIRA THAKUR MDINE Ot N25.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 02/27/2019 MYESHA THAKUR MD Ot R80.9 PROTEINURIA, UNSPECIFIED 02/27/2019 KITA BLACKMON SPREADER Ot G47.33 OBSTRUCTIVE SLEEP APNEA (ADULT) (PEDIATR 02/27/2019 KITA BLACKMON SPREADER Ot I48.0 PAROXYSMAL ATRIAL FIBRILLATION 02/27/2019 KITA BLACKMON SPREADER Ot J45.909 UNSPECIFIED ASTHMA, UNCOMPLICATED 02/27/2019 KITA BLACKMON SPREADER Ot K92.9 DISEASE OF DIGESTIVE SYSTEM, UNSPECIFIED 02/27/2019 KITA BLACKMON SPREADER Ot R06.02 SHORTNESS OF BREATH 02/27/2019 KITA BLACKMON SPREADER Ot R53.83 OTHER FATIGUE 02/27/2019 KITA BLACKMON SPREADER Ot R91.1 SOLITARY PULMONARY NODULE 02/27/2019 KITA BLACKMON SPREADER Ot G47.33 OBSTRUCTIVE SLEEP APNEA (ADULT) (PEDIATR 02/27/2019 KITA BLACKMON SPREADER Ot I48.0 PAROXYSMAL ATRIAL FIBRILLATION 02/27/2019 KITA BLACKMON SPREADER Ot J45.909 UNSPECIFIED ASTHMA, UNCOMPLICATED 02/27/2019 KITA BLACKMON SPREADER Ot K92.9 DISEASE OF DIGESTIVE SYSTEM, UNSPECIFIED 02/27/2019 KITA BLACKMON SPREADER Ot R59.0 LOCALIZED ENLARGED LYMPH NODES 02/27/2019 KITA BLACKMON SPREADER Ot R91.1 SOLITARY PULMONARY NODULE 02/27/2019 KITA BLACKMON SPREADER Ot Z78.9 OTHER SPECIFIED HEALTH STATUS 02/27/2019 KITA BLACKMON SPREADER Ot J45.909 UNSPECIFIED ASTHMA, UNCOMPLICATED 02/27/2019 KITA BLACKMON SPREADER Ot R91.1 SOLITARY PULMONARY NODULE 02/27/2019 ZHANE BOSCH SPREADER Ot M25.511 PAIN IN RIGHT SHOULDER 02/27/2019 ZHANE BOSCH SPREADER Ot Z53.8 PROCEDURE AND TREATMENT NOT CARRIED OUT 02/27/2019 BRENTON TRAN APRN Ot D63.1 ANEMIA IN CHRONIC KIDNEY DISEASE 02/27/2019 BRENTON TRAN APRN Ot E55.9 VITAMIN D DEFICIENCY, UNSPECIFIED 02/27/2019 BRENTON TRAN APRN Ot E61.1 IRON DEFICIENCY 02/27/2019 BRENTON TRAN APRN Ot E78.5 HYPERLIPIDEMIA, UNSPECIFIED 02/27/2019 BRENTON TRAN APRN Ot E87.2 ACIDOSIS 02/27/2019 BRENTON TRAN APRN Ot E87.3 ALKALOSIS 02/27/2019 BRENTON TRAN APRN Ot E87.5 HYPERKALEMIA 02/27/2019 BRENTON TRAN APRN Ot I12.9 HYPERTENSIVE CHRONIC KIDNEY DISEASE W ST 02/27/2019 BRENTON TRAN APRN Ot N17.9 ACUTE KIDNEY FAILURE, UNSPECIFIED 02/27/2019 BRENTON TRAN APRN Ot N18.4 CHRONIC KIDNEY DISEASE, STAGE 4 (SEVERE) 02/27/2019 BRENTON TRAN APRN Ot N25.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 02/27/2019 BRENTON TRAN APRN Ot R80.9 PROTEINURIA, UNSPECIFIED 02/27/2019 ZHANE BOSCH SPREADER Ot M19.011 PRIMARY OSTEOARTHRITIS, RIGHT SHOULDER 02/27/2019 ZHANE BOSCH SPREADER Ot M25.711 OSTEOPHYTE, RIGHT SHOULDER 02/27/2019 LORRI, KITA E SPREADER Ot R91.1 SOLITARY PULMONARY NODULE 02/27/2019 KITA BLACKMON SPREADER Ot Z84.1 FAMILY HISTORY OF DISORDERS OF KIDNEY AN 02/27/2019 CARROLL MACK APRN Ot I 96 GANGRENE, NOT ELSEWHERE CLASSIFIED 02/27/2019 CARROLL MACK SPREADER Ot L97.222 NON-PRESSURE CHRONIC ULCER OF LEFT CALF 02/27/2019 CARROLL MACK SPREADER Ot L98.422 NON-PRESSURE CHRONIC ULCER OF BACK WITH 02/27/2019 CARROLL MACK APRN Ot L97.222 NON-PRESSURE CHRONIC ULCER OF LEFT CALF 02/27/2019 RUSTAM YANG MD Ot I87.332 CHRONIC VENOUS HTN W ULCER AND INFLAMMAT 02/27/2019 RUSTAM YANG MD, Ot L97.222 NON-PRESSURE CHRONIC ULCER OF LEFT CALF 02/27/2019 RUSTAM YANG MD, Ot L98.422 NON-PRESSURE CHRONIC ULCER OF BACK WITH 02/27/2019 ZHANE BOSCH APRN Ot Z12.31 ENCNTR SCREEN MAMMOGRAM FOR MALIGNANT NE 02/27/2019 RUSTAM YANG MD Ot G60 .8 OTHER HEREDITARY AND IDIOPATHIC NEUROPAT 02/27/2019 RUSTAM YANG MD, Ot I87.332 CHRONIC VENOUS HTN W ULCER AND INFLAMMAT 02/27/2019 RUSTAM YANG MD, Ot I96 GANGRENE, NOT ELSEWHERE CLASSIFIED 02/27/2019 RUSTAM YANG MD, Ot L97.222 NON-PRESSURE CHRONIC ULCER OF LEFT CALF 02/27/2019 RUSTAM YANG MD, Ot D64 .9 ANEMIA, UNSPECIFIED 02/27/2019 RUSTAM YANG MD Ot F03.90 UNSPECIFIED DEMENTIA WITHOUT BEHAVIORAL 02/27/2019 RUSTAM YANG MD, Ot F41 .8 OTHER SPECIFIED ANXIETY DISORDERS 02/27/2019 RUSTAM YANG MD, Ot G47.30 SLEEP APNEA, UNSPECIFIED 02/27/2019 RUSTAM YANG MD, Ot H26 .9 UNSPECIFIED CATARACT 02/27/2019 RUSTAM YANG MD, Ot I12 .0 HYP CHR KIDNEY DISEASE W STAGE 5 CHR KID 02/27/2019 RUSTAM YANG MD, Ot I25.10 ATHSCL HEART DISEASE OF [place] CORONARY 02/27/2019 RUSTAM YANG MD, Ot I49 .9 CARDIAC ARRHYTHMIA, UNSPECIFIED 02/27/2019 RUSTAM YANG MD, Ot J45.909 UNSPECIFIED ASTHMA, UNCOMPLICATED 02/27/2019 RUSTAM YANG MD, Ot L97.222 NON-PRESSURE CHRONIC ULCER OF LEFT CALF 02/27/2019 RUSTAM YANG MD, Ot M19.91 PRIMARY OSTEOARTHRITIS, UNSPECIFIED SITE 02/27/2019 RUSTAM YANG MD, Ot N18 .6 END STAGE RENAL DISEASE 02/27/2019 RUSTAM YANG MD, Ot G60 .8 OTHER HEREDITARY AND IDIOPATHIC NEUROPAT 02/27/2019 RUSTAM YANG MD, Ot I87.332 CHRONIC VENOUS HTN W ULCER AND INFLAMMAT 02/27/2019 RUSTAM YANG MD, Ot I96 GANGRENE, NOT ELSEWHERE CLASSIFIED 02/27/2019 RUSTAM YANG MD, Ot L97.222 NON-PRESSURE CHRONIC ULCER OF LEFT CALF 02/27/2019 ELROY PERAZA DO Ot M75.01 ADHESIVE CAPSULITIS OF RIGHT SHOULDER 02/27/2019 RUSTAM YANG MD, Ot G60 .8 OTHER HEREDITARY AND IDIOPATHIC NEUROPAT 02/27/2019 RUSTAM YANG MD, Ot I87.332 CHRONIC VENOUS HTN W ULCER AND INFLAMMAT 02/27/2019 RUSTAM YANG MD, Ot I96 GANGRENE, NOT ELSEWHERE CLASSIFIED 02/27/2019 RUSTAM YANG MD, Ot L97.222 NON-PRESSURE CHRONIC ULCER OF LEFT CALF 02/27/2019 CARROLL MACK SPREADER Ot D63.1 ANEMIA IN CHRONIC KIDNEY DISEASE 02/27/2019 CARROLL MACK SPREADER Ot F03.90 UNSPECIFIED DEMENTIA WITHOUT BEHAVIORAL 02/27/2019 CARROLL MACK APRN Ot F41.8 OTHER SPECIFIED ANXIETY DISORDERS 02/27/2019 CARROLL MACK SPREADER Ot G47.30 SLEEP APNEA, UNSPECIFIED 02/27/2019 CARROLL MACK SPREADER Ot H26.9 UNSPECIFIED CATARACT 02/27/2019 CARROLL MACK APRN Ot I12.0 HYP CHR KIDNEY DISEASE W STAGE 5 CHR KID 02/27/2019 CARROLL MACK SPREADER Ot I25.10 ATHSCL HEART DISEASE OF [place] CORONARY 02/27/2019 CARROLL MACK APRN Ot I49.9 CARDIAC ARRHYTHMIA, UNSPECIFIED 02/27/2019 CARROLL MACK APRN Ot I 96 GANGRENE, NOT ELSEWHERE CLASSIFIED 02/27/2019 CARROLL MACK DIOGO Ot L97.222 NON-PRESSURE CHRONIC ULCER OF LEFT CALF 02/27/2019 CARROLL MACK SPREADER Ot M19.90 UNSPECIFIED OSTEOARTHRITIS, UNSPECIFIED 02/27/2019 CARROLL MACK SPREADER Ot N18.6 END STAGE RENAL DISEASE 02/27/2019 RUSTAM YANG MD Ot G60 .8 OTHER HEREDITARY AND IDIOPATHIC NEUROPAT 02/27/2019 RUSTAM YANG MD Ot I87.332 CHRONIC VENOUS HTN W ULCER AND INFLAMMAT 02/27/2019 RUSTAM YANG MD Ot I96 GANGRENE, NOT ELSEWHERE CLASSIFIED 02/27/2019 RUSTAM YANG MD Ot L97.222 NON-PRESSURE CHRONIC ULCER OF LEFT CALF 02/27/2019 RUSTAM YANG MD Ot G60 .8 OTHER HEREDITARY AND IDIOPATHIC NEUROPAT 02/27/2019 RUSTAM YANG MD Ot I87.332 CHRONIC VENOUS HTN W ULCER AND INFLAMMAT 02/27/2019 RUSTAM YANG MD Ot I96 GANGRENE, NOT ELSEWHERE CLASSIFIED 02/27/2019 RUSTAM YANG MD Ot L97.222 NON-PRESSURE CHRONIC ULCER OF LEFT CALF 02/27/2019 RUSTAM YANG MD Ot G60 .8 OTHER HEREDITARY AND IDIOPATHIC NEUROPAT 02/27/2019 RUSTAM YANG MD Ot I87.332 CHRONIC VENOUS HTN W ULCER AND INFLAMMAT 02/27/2019 RUSTAM YANG MD Ot I96 GANGRENE, NOT ELSEWHERE CLASSIFIED 02/27/2019 RUSTAM YANG MD Ot L97.222 NON-PRESSURE CHRONIC ULCER OF LEFT CALF 02/27/2019 RUSTAM YANG MD Ot G60 .8 OTHER HEREDITARY AND IDIOPATHIC NEUROPAT 02/27/2019 RUSTAM YANG MD Ot I87.332 CHRONIC VENOUS HTN W ULCER AND INFLAMMAT 02/27/2019 RUSTAM YANG MD Ot I96 GANGRENE, NOT ELSEWHERE CLASSIFIED 02/27/2019 RUSTAM YANG MD Ot L97.222 NON-PRESSURE CHRONIC ULCER OF LEFT CALF 02/27/2019 RUSTAM YANG MD Ot G60 .8 OTHER HEREDITARY AND IDIOPATHIC NEUROPAT 02/27/2019 RUSTAM YANG MD Ot I87.332 CHRONIC VENOUS HTN W ULCER AND INFLAMMAT 02/27/2019 RUSTAM YANG MD Ot I96 GANGRENE, NOT ELSEWHERE CLASSIFIED 02/27/2019 RUSTAM YANG MD Ot L97.222 NON-PRESSURE CHRONIC ULCER OF LEFT CALF 02/27/2019 ELROY PERAZA DO Ot M75.102 UNSP ROTATR-CUFF TEAR/RUPTR OF LEFT SHOU 02/27/2019 ELROY PERAZA DO, Ot S43.402A UNSPECIFIED SPRAIN OF LEFT SHOULDER JOIN 02/27/2019 RUSTAM YANG MD, Ot G60 .8 OTHER HEREDITARY AND IDIOPATHIC NEUROPAT 02/27/2019 RUSTAM YANG MD, Ot I87.332 CHRONIC VENOUS HTN W ULCER AND INFLAMMAT 02/27/2019 RUSTAM YANG MD, Ot L97.222 NON-PRESSURE CHRONIC ULCER OF LEFT CALF 02/27/2019 SHANTELLE HAWTHORNE Ot I10 ESSENTIAL (PRIMARY) HYPERTENSION 02/27/2019 SHANTELLE HAWTHORNE Ot I25.10 ATHSCL HEART DISEASE OF [place] CORONARY 02/27/2019 SHANTELLE HAWTHORNE Ot I49.1 ATRIAL PREMATURE DEPOLARIZATION 02/27/2019 SHANTELLE HAWTHORNE Ot I49.3 VENTRICULAR PREMATURE DEPOLARIZATION 03/05/2019 ELROY PERAZA DO, Ot M75.01 ADHESIVE CAPSULITIS OF RIGHT SHOULDER 03/06/2019 SHANTELLE HAWTHORNE Ot I10 ESSENTIAL (PRIMARY) HYPERTENSION 03/06/2019 SHANTELLE HAWTHORNE Ot I25.10 ATHSCL HEART DISEASE OF [place] CORONARY 03/06/2019 SHANTELLE HAWTHORNE Ot I49.1 ATRIAL PREMATURE DEPOLARIZATION 03/06/2019 SHANTELLE HAWTHORNE Ot I49.3 VENTRICULAR PREMATURE DEPOLARIZATION 03/06/2019 ELROY PERAZA DO, Ot M75.01 ADHESIVE CAPSULITIS OF RIGHT SHOULDER 03/11/2019 KITA BLACKMON APRN Ot R91.1 SOLITARY PULMONARY NODULE 03/11/2019 KITA BLACKMON APRN Ot Z84.1 FAMILY HISTORY OF DISORDERS OF KIDNEY AN 03/12/2019 KITA BLACKMON APRN Ot R91.1 SOLITARY PULMONARY NODULE 03/12/2019 KITA BLACKMON APRN Ot Z84.1 FAMILY HISTORY OF DISORDERS OF KIDNEY AN 04/02/2019 RUSTAM YANG MD Ot G60 .8 OTHER HEREDITARY AND IDIOPATHIC NEUROPAT 04/02/2019 TREY MD, RUSTAM G Ot I87.322 CHRONIC VENOUS HYPERTENSION W INFLAMMATI 04/02/2019 RUSTAM YANG MD, Ot R23 .8 OTHER SKIN CHANGES 04/14/2019 RUSTAM YANG MD, Ot G60 .8 OTHER HEREDITARY AND IDIOPATHIC NEUROPAT 04/14/2019 RUSTAM YANG MD Ot I87.322 CHRONIC VENOUS HYPERTENSION W INFLAMMATI 04/14/2019 RUSTAM YANG MD, Ot R23 .8 OTHER SKIN CHANGES 04/14/2019 KITA BLACKMON APRN Ot R91.1 SOLITARY PULMONARY NODULE 04/14/2019 KITA BLACKMON SPREADER Ot Z84.1 FAMILY HISTORY OF DISORDERS OF KIDNEY AN 04/14/2019 RUSTAM YANG MD, Ot G60 .8 OTHER HEREDITARY AND IDIOPATHIC NEUROPAT 04/14/2019 RUSTAM YANG MD, Ot I87.332 CHRONIC VENOUS HTN W ULCER AND INFLAMMAT 04/14/2019 RUSTAM YANG MD Ot I96 GANGRENE, NOT ELSEWHERE CLASSIFIED 04/14/2019 RUSTAM YANG MD Ot L97.222 NON-PRESSURE CHRONIC ULCER OF LEFT CALF 04/14/2019 RUSTAM YANG MD Ot I87.332 CHRONIC VENOUS HTN W ULCER AND INFLAMMAT 04/14/2019 RUSTAM YANG MD Ot L97.222 NON-PRESSURE CHRONIC ULCER OF LEFT CALF 04/14/2019 RUSTAM YANG MD Ot L98.422 NON-PRESSURE CHRONIC ULCER OF BACK WITH 04/14/2019 CARROLL MACK APRN Ot I 96 GANGRENE, NOT ELSEWHERE CLASSIFIED 04/14/2019 CARROLL MACK APRN Ot L97.222 NON-PRESSURE CHRONIC ULCER OF LEFT CALF 04/14/2019 CARROLL MACK APRN Ot L98.422 NON-PRESSURE CHRONIC ULCER OF BACK WITH 04/14/2019 RUSTAM YANG MD Ot G60 .8 OTHER HEREDITARY AND IDIOPATHIC NEUROPAT 04/14/2019 RUSTAM YANG MD Ot I87.322 CHRONIC VENOUS HYPERTENSION W INFLAMMATI 04/14/2019 RUSTAM YANG MD, Ot R23 .8 OTHER SKIN CHANGES 04/28/2019 RUSTAM YANG MD, Ot G60 .8 OTHER HEREDITARY AND IDIOPATHIC NEUROPAT 04/28/2019 RUSTAM YANG MD Ot I87.322 CHRONIC VENOUS HYPERTENSION W INFLAMMATI 04/28/2019 RUSTAM YANG MD, Ot R23 .8 OTHER SKIN CHANGES 05/06/2019 TONYA, PERI E SPREADER Ot R29.898 OTH SYMPTOMS AND SIGNS INVOLVING THE MUS 05/06/2019 TONYA, PERI E SPREADER Ot Z98.890 OTHER SPECIFIED POSTPROCEDURAL STATES 05/12/2019 TONYA, PERI E SPREADER Ot R29.898 OTH SYMPTOMS AND SIGNS INVOLVING THE MUS 05/12/2019 TONYA, PERI E SPREADER Ot Z98.890 OTHER SPECIFIED POSTPROCEDURAL STATES 06/09/2019 TONYA, PERI E SPREADER Ot R29.898 OTH SYMPTOMS AND SIGNS INVOLVING THE MUS 06/09/2019 TONYA, PERI E SPREADER Ot Z98.890 OTHER SPECIFIED POSTPROCEDURAL STATES 06/10/2019 TONYA, PERI E SPREADER Ot R29.898 OTH SYMPTOMS AND SIGNS INVOLVING THE MUS 06/10/2019 TONYA, PERI E SPREADER Ot Z98.890 OTHER SPECIFIED POSTPROCEDURAL STATES 06/13/2019 TONYA, PERI E SPREADER Ot R29.898 OTH SYMPTOMS AND SIGNS INVOLVING THE MUS 06/13/2019 TONYA, PERI E SPREADER Ot Z98.890 OTHER SPECIFIED POSTPROCEDURAL STATES 07/22/2019 ZHANE BOSCH SPREADER Ot R59.1 GENERALIZED ENLARGED LYMPH NODES Procedures Code Description Performed By [facility] On 65.61 OTH REMOVE BOTH OVARIES/TUBES 06/01/[address] VAG HYSTER(LAVH) 06/01/2006 45.16 ESOP HAGOGASTRODUODENOSCOPY [EGD] W/CLOSE 01/12/2011 45.25 CLOS ED ENDOSCOPIC BIOPSY OF LARGE INTEST 01/12/2011 46814 ROUT INE VENIPUNCTURE 02/14/2012 98948 MYCO PLASMA ANTIBODY 02/14/2012 63822 XRAY CHEST 2 VIEW 02/20/2012 67128 XRAY CHEST 2 VIEW 02/20/2012 42463 ROUT INE VENIPUNCTURE 04/02/2012 99544 CMP 04/02/2012 22236 LIPI D PANEL 04/02/2012 [id number] GF R CALC (RESULT ONLY) 04/02/2012 64424 CBC 04/02/2012 88389 IRON SERUM 04/03/2012 68315 TSH 04/03/2012 51766 JOIN T INJECTION- LARGE JOINT (SPECIFY MEDCIN DESCRIPTION) 04/18 91753 XRAY KNEE RIGHT 1 OR 2 VIEWS 04/18/2012 J1040 DEPO MEDROL 80 MG INJ 04/18/2012 33364 ROUT INE VENIPUNCTURE 05/03/2012 51398 LIPI D PANEL 05/03/2012 33430 DULCE L PROFILE 05/03/2012 65693 UA W /MICROSCOPY 05/03/2012 02316 PTH (intact) 05/03/2012 52502 PHOS PHORUS 05/03/2012 03221 CBC 05/03/2012 99870 CULT URE URINE 05/03/2012 IRGROUP IR ON GROUP (Iron,TIBC, Ferritin) 05/03/2012 PRO/CRE UR INE PROTEIN TO CREATNINE RATIO 05/03/2012 53594 ROUT INE VENIPUNCTURE 06/13/2012 16263 BNP 06/13/2012 90511 CRP HS (CARDIO) 06/13/2012 46652 ROUT INE VENIPUNCTURE 07/17/2012 32172 LIVE R PANEL (LFT) 07/17/2012 3483249 GF R CALC (RESULT ONLY) 07/17/2012 47724 TSH 07/17/2012 49388 DULCE L PROFILE 07/17/2012 45999 DELGADO ER MONITOR 07/18/2012 15469 ECHO 2D 07/18/2012 75305 ROUT INE VENIPUNCTURE 09/04/2012 28029 CBC 09/04/2012 00563 UA W / CULTURE IF INDICATED 09/04/2012 55032 NICA MIN D 25-HYDROXY (D2,D3, TOTAL) 09/04/2012 72691 FERRITIN 09/04/2012 05864 DULCE L PROFILE 09/04/2012 43595 IRON SERUM 09/04/2012 47623 IRON BNDNG CAP 09/04/2012 9023404 GF R CALC (RESULT ONLY) 09/04/2012 PRO/CRE UR INE PROTEIN TO CREATNINE RATIO 09/04/2012 88095 CULT URE URINE 09/04/2012 IRGROUP IR ON GROUP (Iron,TIBC, Ferritin) 09/04/2012 26551 JOIN T INJECTION- LARGE JOINT (SPECIFY MEDCIN DESCRIPTION) 10/10 98575 JOIN T INJECTION- LARGE JOINT (SPECIFY MEDCIN DESCRIPTION) 12/26 69098 JOIN T INJECTION- LARGE JOINT (SPECIFY MEDCIN DESCRIPTION) 02/06 82872 ROUT INE VENIPUNCTURE 02/27/2013 24289 LIPI D PANEL 02/27/2013 75085 TSH 02/27/2013 82880 CBC 07/21/2013 27178 DULCE L PROFILE 07/21/2013 30585 IRON SERUM 07/21/2013 95891 IRON BNDNG CAP 07/21/2013 [id number] GF R CALC (RESULT ONLY) 07/21/2013 PRO/CRE UR INE PROTEIN TO CREATNINE RATIO 07/21/2013 32637 NICA MIN D 25-HYDROXY (D2,D3, TOTAL) 07/21/2013 08008 FERRITIN 07/21/2013 42297 URIN E MICROSCOPIC EXAM 07/21/2013 IRGROUP IR ON GROUP (Iron,TIBC, Ferritin) 07/22/2013 62196 JOIN T INJECTION- LARGE JOINT (SPECIFY MEDCIN DESCRIPTION) 08/21 26070 ROUT INE VENIPUNCTURE 08/22/2013 [id number] GF R CALC (RESULT ONLY) 08/22/2013 46330 CMP 08/22/2013 77393 TSH 08/22/2013 62866 ROUT INE VENIPUNCTURE 10/06/2013 09429 CMP 10/06/2013 40919 STRE P A (IN-HOUSE) 10/29/2013 11939 NEBU LIZER TREATMENT 10/29/2013 53253 OXIMETRY 10/29/2013 82463 OXIMETRY 10/31/2013 72315 JOIN T INJECTION- LARGE JOINT (SPECIFY MEDCIN DESCRIPTION) 12/04 56347 ROUT INE VENIPUNCTURE 01/19/2014 [id number] GF R CALC (RESULT ONLY) 01/19/2014 65637 LIPI D PANEL 01/19/2014 08309 DULCE L PROFILE 01/19/2014 49524 IRON SERUM 01/19/2014 41747 IRON BNDNG CAP 01/19/2014 12284 CBC 01/19/2014 68975 TSH 01/19/2014 PRO/CRE UR INE PROTEIN TO CREATNINE RATIO 01/19/2014 63446 NICA MIN D 25-HYDROXY (D2,D3, TOTAL) 01/19/2014 85177 FERRITIN 01/19/2014 43796 UA W /MICROSCOPY 01/19/2014 IRGROUP IR ON GROUP (IRON,TIBC, FERRITIN) 01/20/2014 56598 INFL UENZA A & B (IN-HOUSE) 03/30/2014 50605 OXIMETRY 03/30/2014 48977 PSYC H DIAGNOSTIC EVALUATION 06/01/2014 26028 ROUT INE VENIPUNCTURE 07/16/2014 63722 XRAY ANKLE L COMP MIN, 3 VIEWS 07/16/2014 28552 DULCE L PROFILE 07/16/2014 74827 UA W /MICROSCOPY 07/16/2014 59977 NICA MIN D 25-HYDROXY (D2,D3, TOTAL) 07/16/2014 64545 PTH (intact) (ORDER ONLY) 07/16/2014 13934 CBC 07/16/2014 IRGROUP IR ON GROUP (Iron,TIBC, Ferritin) 07/16/2014 PRO/CRE UR INE PROTEIN TO CREATNINE RATIO 07/16/2014 74294 PSYT X PT&/FAMILY 45 MINUTES 08/03/[address] TALBERT OF SPINAL CANAL, PERCUTANEOUS A 08/04/2018 Results Test Result Range Complete blood count (CBC) with automate d white blood cell (WBC) differential - 10/03/16 18:42 Blood leukocytes automated count (number/volume) 8.7 10*3/uL 4.3-11.0 Blood erythrocytes automated count (number/volume) 4.19 10*6/uL 4.35-5.85 Venous blood hemoglobin measurement (mass/volume) 12.1 g/dL 11.5-16.0 Blood hematocrit (volume fraction) 38 % 35-52 Automated erythrocyte mean corpuscular volume 91 [ foz_us] 80-99 Automated erythrocyte mean corpuscular h emoglobin (mass per erythrocyte) 29 pg 25-34 Automated erythrocyte mean corpuscular h emoglobin concentration measurement (mass/volume) 32 g/dL 32-36 Automated erythrocyte distribution width ratio 13. 4 % 10.0- 14.5 Automated blood platelet count (count/volume) 283 10*3/uL 130-400 Automated blood platelet mean volume measurement 9.8 [foz_us] 7.4-10.4 Automated blood neutrophils/100 leukocytes 60 % 42-75 Automated blood lymphocytes/100 leukocytes 27 % 12-44 Blood monocytes/100 leukocytes 8 % 0-12 Automated blood eosinophils/100 leukocytes 4 % 0-10 Automated blood basophils/100 leukocytes 1 % 0-10 Blood neutrophils automated count (number/volume) 5.3 10*3 1.8-7.8 Blood lymphocytes automated count (number/volume) 2.3 10*3 1.0-4.0 Blood monocytes automated count (number/volume) 0. 7 10*3 0.0-1.0 Automated eosinophil count 0.3 10*3/uL 0 .0-0.3 Automated blood basophil count (count/volume) 0.1 10*3/uL 0.0-0.1 Comprehensive metabolic panel - 10/03/16 18:42 Serum or plasma sodium measurement (moles/volume) 142 mmol/L 135-145 Serum or plasma potassium measurement (moles/volume) 4.1 mmol/L 3.6-5.0 Serum or plasma chloride measurement (moles/volume) 103 mmol/L 98-107 Carbon dioxide 27 mmol/L 21-32 Serum or plasma anion gap determination (moles/volume) 12 mmol/L 5-14 Serum or plasma urea nitrogen measurement (mass/volume ) 14 mg/dL 7-18 Serum or plasma creatinine measurement (mass/volume) 1.13 mg/dL 0.60-1.30 Serum or plasma urea nitrogen/creatinine mass ratio 12 0-20 Serum or plasma creatinine measurement w ith calculation of estimated glomerular filtration rate 50 NRG Serum or plasma glucose measurement (mass/volume) 97 mg/dL 70-105 Serum or plasma calcium measurement (mass/volume) 10.2 mg/dL 8.5-10.1 Serum or plasma total bilirubin measurement (mass/volu me) 0.4 mg/dL 0.1-1.0 Serum or plasma alkaline phosphatase kina surement (enzymatic activity/volume) 111 U/L 40-136 Serum or plasma aspartate aminotransfera se measurement (enzymatic activity/volume) 23 U/L 5-34 Serum or plasma alanine aminotransferase measurement (enzymatic activity/volume) 21 U/L 0-55 Serum or plasma protein measurement (mass/volume) 7.8 g/dL 6.4-8.2 Serum or plasma albumin measurement (mass/volume) 4.4 g/dL 3.2-4.5 Magnesium - 10/03/16 18:42 Magnesium 1.9 mg/dL 1.8-2.4 Serum or plasma thyroxine (T4) free elysia urement (mass/volume) - 10/03/16 18:42 Serum or plasma thyroxine (T4) free measurement (mass/ volume) 0.84 ng/dL 0.70-1.48 THYROID STIMULATING HORMONE - 10/03/16 1 8:42 THYROID STIMULATING HORMONE 6.19 u[iU]/mL 0.35-4.94 Serum or plasma thyroxine (T4) free elysia urement (mass/volume) - 10/03/16 18:42 Serum or plasma thyroxine (T4) free measurement (mass/ volume) 0.84 ng/dL 0.70-1.48 Complete urinalysis with reflex to cultu re - 10/03/16 19:40 Urine color determination YELLOW NRG Urine clarity determination CLEAR NR G Urine pH measurement by test strip 7 5-9 Specific gravity of urine by test strip 1.005 1.016-1.022 Urine protein assay by test strip, semi-quantitative NEGATIVE NEGATIVE Urine glucose detection by automated test strip NE GATIVE NEGATIVE Erythrocytes detection in urine sediment by light micr oscopy NEGATIVE NEGATIVE Urine ketones detection by automated test strip NE GATIVE NEGATIVE Urine nitrite detection by test strip NEGATIVE NEGATIVE Urine total bilirubin detection by test strip NEGA TIVE NEGATIVE Urine urobilinogen measurement by automated test strip (mass/volume) NORMAL NORMAL Urine leukocyte esterase detection by dipstick 1+ NEGATIVE Automated urine sediment erythrocyte cou nt by microscopy (number/high power field) NONE NRG Automated urine sediment leukocyte count by microscopy (number/high power field) [HPF] NRG Bacteria detection in urine sediment by light microsco py TRACE NRG Squamous epithelial cells detection in u rine sediment by light microscopy 2-5 NRG Crystals detection in urine sediment by light microsco py NONE NRG Casts detection in urine sediment by light microscopy NONE NRG Mucus detection in urine sediment by light microscopy NEGATIVE NRG Complete urinalysis with reflex to culture NO NRG Complete urinalysis with reflex to cultu re - 12/12/16 19:12 Urine color determination YELLOW NRG Urine clarity determination CLEAR NR G Urine pH measurement by test strip 7 5-9 Specific gravity of urine by test strip 1.005 1.016-1.022 Urine protein assay by test strip, semi-quantitative 2+ NEGATIVE Urine glucose detection by automated test strip NE GATIVE NEGATIVE Erythrocytes detection in urine sediment by light micr oscopy NEGATIVE NEGATIVE Urine ketones detection by automated test strip NE GATIVE NEGATIVE Urine nitrite detection by test strip NEGATIVE NEGATIVE Urine total bilirubin detection by test strip NEGA TIVE NEGATIVE Urine urobilinogen measurement by automated test strip (mass/volume) NORMAL NORMAL Urine leukocyte esterase detection by dipstick 2+ NEGATIVE Automated urine sediment erythrocyte cou nt by microscopy (number/high power field) NONE NRG Automated urine sediment leukocyte count by microscopy (number/high power field) [HPF] NRG Bacteria detection in urine sediment by light microsco py TRACE NRG Squamous epithelial cells detection in u rine sediment by light microscopy 2-5 NRG Crystals detection in urine sediment by light microsco py NONE NRG Casts detection in urine sediment by light microscopy NONE NRG Mucus detection in urine sediment by light microscopy NEGATIVE NRG Complete urinalysis with reflex to culture YES NRG Bacterial urine culture - 12/12/16 19:12 Bacterial urine culture SEE COMMEN NRG COLONY COUNT . NRG FTX;REPORTABLE PLUS, NRG FREE TEXT ENTRY 2 LACTOBACILLUS 10-100,000/ML NRG Complete blood count (CBC) with automate d white blood cell (WBC) differential - 12/12/16 19:20 Blood leukocytes automated count (number/volume) 13.3 10*3/uL 4.3-11.0 Blood erythrocytes automated count (number/volume) 3.92 10*6/uL 4.35-5.85 Venous blood hemoglobin measurement (mass/volume) 11.2 g/dL 11.5-16.0 Blood hematocrit (volume fraction) 35 % 35-52 Automated erythrocyte mean corpuscular volume 90 [ foz_us] 80-99 Automated erythrocyte mean corpuscular h emoglobin (mass per erythrocyte) 29 pg 25-34 Automated erythrocyte mean corpuscular h emoglobin concentration measurement (mass/volume) 32 g/dL 32-36 Automated erythrocyte distribution width ratio 13. 5 % 10.0- 14.5 Automated blood platelet count (count/volume) 217 10*3/uL 130-400 Automated blood platelet mean volume measurement 9.8 [foz_us] 7.4-10.4 Automated blood neutrophils/100 leukocytes 86 % 42-75 Automated blood lymphocytes/100 leukocytes 7 % 12-44 Blood monocytes/100 leukocytes 7 % 0-12 Automated blood eosinophils/100 leukocytes 0 % 0-10 Automated blood basophils/100 leukocytes 0 % 0-10 Blood neutrophils automated count (number/volume) 11.4 10*3 1.8-7.8 Blood lymphocytes automated count (number/volume) 0.9 10*3 1.0-4.0 Blood monocytes automated count (number/volume) 1. 0 10*3 0.0-1.0 Automated eosinophil count 0.0 10*3/uL 0 .0-0.3 Automated blood basophil count (count/volume) 0.1 10*3/uL 0.0-0.1 PT panel in platelet poor plasma by coag ulation assay - 12/12/16 19:20 Prothrombin time (PT) in platelet poor plasma by coagu lation assay 13.9 s 12.2-14.7 INR in platelet poor plasma or blood by coagulation as say 1.1 0.8-1.4 Activated partial thromboplastin time (a PTT) in platelet poor plasma bycoagulation assay - 12/12/16 19:20 Activated partial thromboplastin time (a PTT) in platelet poor plasma bycoagulation assay 33 s 24-35 Blood manual differential performed dete ction - 12/12/16 19:20 Blood monocytes/100 leukocytes 1 % NRG Manual blood segmented neutrophils/100 leukocytes 89 % NRG Blood band neutrophils/100 leukocytes 3 % NRG Manual blood lymphocytes/100 leukocytes 7 % NRG Manual eosinophils/100 leukocytes in nose 0 % NRG Manual blood basophils/100 leukocytes 0 % NRG Blood erythrocyte morphology finding identification NORMAL NRG Blood lactic acid measurement (moles/vol ume) - 12/12/16 19:20 Blood lactic acid measurement (moles/volume) 0.72 mmol/L 0.50-2.00 Comprehensive metabolic panel - 12/12/16 19:20 Serum or plasma sodium measurement (moles/volume) 141 mmol/L 135-145 Serum or plasma potassium measurement (moles/volume) 3.8 mmol/L 3.6-5.0 Serum or plasma chloride measurement (moles/volume) 103 mmol/L 98-107 Carbon dioxide 26 mmol/L 21-32 Serum or plasma anion gap determination (moles/volume) 12 mmol/L 5-14 Serum or plasma urea nitrogen measurement (mass/volume ) 17 mg/dL 7-18 Serum or plasma creatinine measurement (mass/volume) 1.43 mg/dL 0.60-1.30 Serum or plasma urea nitrogen/creatinine mass ratio 12 NRG Serum or plasma creatinine measurement w ith calculation of estimated glomerular filtration rate 38 NRG Serum or plasma glucose measurement (mass/volume) 100 mg/dL 70-105 Serum or plasma calcium measurement (mass/volume) 9.4 mg/dL 8.5-10.1 Serum or plasma total bilirubin measurement (mass/volu me) 0.4 mg/dL 0.1-1.0 Serum or plasma alkaline phosphatase kina surement (enzymatic activity/volume) 92 U/L 40-136 Serum or plasma aspartate aminotransfera se measurement (enzymatic activity/volume) 17 U/L 5-34 Serum or plasma alanine aminotransferase measurement (enzymatic activity/volume) 13 U/L 0-55 Serum or plasma protein measurement (mass/volume) 7.3 g/dL 6.4-8.2 Serum or plasma albumin measurement (mass/volume) 4.3 g/dL 3.2-4.5 Bacterial blood culture - 12/12/16 19:20 FREE TEXT EXTERNAL SEE COMMENT [facility] QUANTITY OF GROWTH Isolated [facility] Bacterial blood culture [id number] [facility] Bacterial blood culture - 12/12/16 19:20 Bacterial blood culture NG [facility] Tick identification panel - 12/12/16 19: 40 Serum Ehrlichia chaffeensis IgG antibody detection <1:16 <1:16 Serum Ehrlichia chaffeensis IgM antibody detection <1:10 <1:10 Serum Rickettsia rickettsii IgG antibody assay (units/ volume) < <1:16 [place] spotted fever panel < <1:10 Francisella tularensis antibody assay <1:20 [facility] LYME AB G M 0.21 % 0.00-0.89 Interpretation of Lyme disease antibody assay Nega tive Negative Complete blood count (CBC) with automate d white blood cell (WBC) differential - 12/13/16 11:19 Blood leukocytes automated count (number/volume) 7.6 10*3/uL 4.3-11.0 Blood erythrocytes automated count (number/volume) 3.48 10*6/uL 4.35-5.85 Venous blood hemoglobin measurement (mass/volume) 10.0 g/dL 11.5-16.0 Blood hematocrit (volume fraction) 32 % 35-52 Automated erythrocyte mean corpuscular volume 91 [ foz_us] 80-99 Automated erythrocyte mean corpuscular h emoglobin (mass per erythrocyte) 29 pg 25-34 Automated erythrocyte mean corpuscular h emoglobin concentration measurement (mass/volume) 32 g/dL 32-36 Automated erythrocyte distribution width ratio 13. 4 % 10.0- 14.5 Automated blood platelet count (count/volume) 201 10*3/uL 130-400 Automated blood platelet mean volume measurement 9.8 [foz_us] 7.4-10.4 Automated blood neutrophils/100 leukocytes 86 % 42-75 Automated blood lymphocytes/100 leukocytes 9 % 12-44 Blood monocytes/100 leukocytes 6 % 0-12 Automated blood eosinophils/100 leukocytes 0 % 0-10 Automated blood basophils/100 leukocytes 0 % 0-10 Blood neutrophils automated count (number/volume) 6.5 10*3 1.8-7.8 Blood lymphocytes automated count (number/volume) 0.6 10*3 1.0-4.0 Blood monocytes automated count (number/volume) 0. 4 10*3 0.0-1.0 Automated eosinophil count 0.0 10*3/uL 0 .0-0.3 Automated blood basophil count (count/volume) 0.0 10*3/uL 0.0-0.1 Comprehensive metabolic panel - 12/13/16 11:19 Serum or plasma sodium measurement (moles/volume) 142 mmol/L 135-145 Serum or plasma potassium measurement (moles/volume) 4.0 mmol/L 3.6-5.0 Serum or plasma chloride measurement (moles/volume) 109 mmol/L 98-107 Carbon dioxide 22 mmol/L 21-32 Serum or plasma anion gap determination (moles/volume) 11 mmol/L 5-14 Serum or plasma urea nitrogen measurement (mass/volume ) 20 mg/dL 7-18 Serum or plasma creatinine measurement (mass/volume) 1.34 mg/dL 0.60-1.30 Serum or plasma urea nitrogen/creatinine mass ratio 15 NRG Serum or plasma creatinine measurement w ith calculation of estimated glomerular filtration rate 41 NRG Serum or plasma glucose measurement (mass/volume) 134 mg/dL 70-105 Serum or plasma calcium measurement (mass/volume) 8.7 mg/dL 8.5-10.1 Serum or plasma total bilirubin measurement (mass/volu me) 0.2 mg/dL 0.1-1.0 Serum or plasma alkaline phosphatase kina surement (enzymatic activity/volume) 72 U/L 40-136 Serum or plasma aspartate aminotransfera se measurement (enzymatic activity/volume) 15 U/L 5-34 Serum or plasma alanine aminotransferase measurement (enzymatic activity/volume) 12 U/L 0-55 Serum or plasma protein measurement (mass/volume) 6.3 g/dL 6.4-8.2 Serum or plasma albumin measurement (mass/volume) 3.6 g/dL 3.2-4.5 West Nile virus antibody panel (IgG and IgM) - 12/13/16 11:19 Serum West Nile virus IgM antibody assay 0.06 % 0.00-0.89 West Nile virus IgG antibody detection 0.56 0.00-1.29 Complete blood count (CBC) with automate d white blood cell (WBC) differential - 12/14/16 05:45 Blood leukocytes automated count (number/volume) 7.4 10*3/uL 4.3-11.0 Blood erythrocytes automated count (number/volume) 3.20 10*6/uL 4.35-5.85 Venous blood hemoglobin measurement (mass/volume) 9.2 g/dL 11.5-16.0 Blood hematocrit (volume fraction) 29 % 35-52 Automated erythrocyte mean corpuscular volume 91 [ foz_us] 80-99 Automated erythrocyte mean corpuscular h emoglobin (mass per erythrocyte) 29 pg 25-34 Automated erythrocyte mean corpuscular h emoglobin concentration measurement (mass/volume) 32 g/dL 32-36 Automated erythrocyte distribution width ratio 13. 5 % 10.0- 14.5 Automated blood platelet count (count/volume) 186 10*3/uL 130-400 Automated blood platelet mean volume measurement 10.3 [foz_us] 7.4-10.4 Automated blood neutrophils/100 leukocytes 61 % 42-75 Automated blood lymphocytes/100 leukocytes 25 % 12-44 Blood monocytes/100 leukocytes 11 % 0-12 Automated blood eosinophils/100 leukocytes 2 % 0-10 Automated blood basophils/100 leukocytes 1 % 0-10 Blood neutrophils automated count (number/volume) 4.5 10*3 1.8-7.8 Blood lymphocytes automated count (number/volume) 1.9 10*3 1.0-4.0 Blood monocytes automated count (number/volume) 0. 8 10*3 0.0-1.0 Automated eosinophil count 0.1 10*3/uL 0 .0-0.3 Automated blood basophil count (count/volume) 0.1 10*3/uL 0.0-0.1 Whole blood basic metabolic panel - 11/16 05/02 05:45 Serum or plasma sodium measurement (moles/volume) 145 mmol/L 135-145 Serum or plasma potassium measurement (moles/volume) 3.6 mmol/L 3.6-5.0 Serum or plasma chloride measurement (moles/volume) 113 mmol/L 98-107 Carbon dioxide 22 mmol/L 21-32 Serum or plasma anion gap determination (moles/volume) 10 mmol/L 5-14 Serum or plasma urea nitrogen measurement (mass/volume ) 19 mg/dL 7-18 Serum or plasma creatinine measurement (mass/volume) 1.16 mg/dL 0.60-1.30 Serum or plasma urea nitrogen/creatinine mass ratio 16 NRG Serum or plasma creatinine measurement w ith calculation of estimated glomerular filtration rate 48 NRG Serum or plasma glucose measurement (mass/volume) 99 mg/dL 70-105 Serum or plasma calcium measurement (mass/volume) 8.5 mg/dL 8.5-10.1 Automated blood complete blood count (he mogram) panel - 12/15/16 06:15 Blood leukocytes automated count (number/volume) 7.3 10*3/uL 4.3-11.0 Blood erythrocytes automated count (number/volume) 3.20 10*6/uL 4.35-5.85 Venous blood hemoglobin measurement (mass/volume) 9.2 g/dL 11.5-16.0 Blood hematocrit (volume fraction) 29 % 35-52 Automated erythrocyte mean corpuscular volume 90 [ foz_us] 80-99 Automated erythrocyte mean corpuscular h emoglobin (mass per erythrocyte) 29 pg 25-34 Automated erythrocyte mean corpuscular h emoglobin concentration measurement (mass/volume) 32 g/dL 32-36 Automated erythrocyte distribution width ratio 13. 6 % 10.0- 14.5 Automated blood platelet count (count/volume) 190 10*3/uL 130-400 Automated blood platelet mean volume measurement 9.8 [foz_us] 7.4-10.4 Whole blood basic metabolic panel - 05/02 06:15 Serum or plasma sodium measurement (moles/volume) 143 mmol/L 135-145 Serum or plasma potassium measurement (moles/volume) 3.6 mmol/L 3.6-5.0 Serum or plasma chloride measurement (moles/volume) 110 mmol/L 98-107 Carbon dioxide 22 mmol/L 21-32 Serum or plasma anion gap determination (moles/volume) 11 mmol/L 5-14 Serum or plasma urea nitrogen measurement (mass/volume ) 13 mg/dL 7-18 Serum or plasma creatinine measurement (mass/volume) 1.17 mg/dL 0.60-1.30 Serum or plasma urea nitrogen/creatinine mass ratio 11 NRG Serum or plasma creatinine measurement w ith calculation of estimated glomerular filtration rate 48 NRG Serum or plasma glucose measurement (mass/volume) 102 mg/dL 70-105 Serum or plasma calcium measurement (mass/volume) 8.6 mg/dL 8.5-10.1 Bacterial blood culture - 12/15/16 12:50 Bacterial blood culture NG NRG Bacterial blood culture - 12/15/16 13:25 Bacterial blood culture NG NRG Automated blood complete blood count (he mogram) panel - 12/17/16 05:25 Blood leukocytes automated count (number/volume) 5.8 10*3/uL 4.3-11.0 Blood erythrocytes automated count (number/volume) 3.18 10*6/uL 4.35-5.85 Venous blood hemoglobin measurement (mass/volume) 9.2 g/dL 11.5-16.0 Blood hematocrit (volume fraction) 28 % 35-52 Automated erythrocyte mean corpuscular volume 89 [ foz_us] 80-99 Automated erythrocyte mean corpuscular h emoglobin (mass per erythrocyte) 29 pg 25-34 Automated erythrocyte mean corpuscular h emoglobin concentration measurement (mass/volume) 32 g/dL 32-36 Automated erythrocyte distribution width ratio 13. 7 % 10.0- 14.5 Automated blood platelet count (count/volume) 225 10*3/uL 130-400 Automated blood platelet mean volume measurement 9.5 [foz_us] 7.4-10.4 Whole blood basic metabolic panel - 06/30 05:25 Serum or plasma sodium measurement (moles/volume) 143 mmol/L 135-145 Serum or plasma potassium measurement (moles/volume) 3.4 mmol/L 3.6-5.0 Serum or plasma chloride measurement (moles/volume) 110 mmol/L 98-107 Carbon dioxide 22 mmol/L 21-32 Serum or plasma anion gap determination (moles/volume) 11 mmol/L 5-14 Serum or plasma urea nitrogen measurement (mass/volume ) 10 mg/dL 7-18 Serum or plasma creatinine measurement (mass/volume) 1.27 mg/dL 0.60-1.30 Serum or plasma urea nitrogen/creatinine mass ratio 8 NRG Serum or plasma creatinine measurement w ith calculation of estimated glomerular filtration rate 43 NRG Serum or plasma glucose measurement (mass/volume) 109 mg/dL 70-105 Serum or plasma calcium measurement (mass/volume) 8.5 mg/dL 8.5-10.1 Automated blood complete blood count (he mogram) panel - 12/18/16 05:40 Blood leukocytes automated count (number/volume) 6.9 10*3/uL 4.3-11.0 Blood erythrocytes automated count (number/volume) 3.40 10*6/uL 4.35-5.85 Venous blood hemoglobin measurement (mass/volume) 9.7 g/dL 11.5-16.0 Blood hematocrit (volume fraction) 31 % 35-52 Automated erythrocyte mean corpuscular volume 90 [ foz_us] 80-99 Automated erythrocyte mean corpuscular h emoglobin (mass per erythrocyte) 29 pg 25-34 Automated erythrocyte mean corpuscular h emoglobin concentration measurement (mass/volume) 32 g/dL 32-36 Automated erythrocyte distribution width ratio 14. 1 % 10.0- 14.5 Automated blood platelet count (count/volume) 255 10*3/uL 130-400 Automated blood platelet mean volume measurement 9.4 [foz_us] 7.4-10.4 Whole blood basic metabolic panel - 07/31 05:40 Serum or plasma sodium measurement (moles/volume) 143 mmol/L 135-145 Serum or plasma potassium measurement (moles/volume) 3.5 mmol/L 3.6-5.0 Serum or plasma chloride measurement (moles/volume) 108 mmol/L 98-107 Carbon dioxide 22 mmol/L 21-32 Serum or plasma anion gap determination (moles/volume) 13 mmol/L 5-14 Serum or plasma urea nitrogen measurement (mass/volume ) 11 mg/dL 7-18 Serum or plasma creatinine measurement (mass/volume) 1.35 mg/dL 0.60-1.30 Serum or plasma urea nitrogen/creatinine mass ratio 8 NRG Serum or plasma creatinine measurement w ith calculation of estimated glomerular filtration rate 40 NRG Serum or plasma glucose measurement (mass/volume) 106 mg/dL 70-105 Serum or plasma calcium measurement (mass/volume) 8.9 mg/dL 8.5-10.1 Automated blood complete blood count (he mogram) panel - 12/19/16 05:22 Blood leukocytes automated count (number/volume) 9.3 10*3/uL 4.3-11.0 Blood erythrocytes automated count (number/volume) 3.44 10*6/uL 4.35-5.85 Venous blood hemoglobin measurement (mass/volume) 9.8 g/dL 11.5-16.0 Blood hematocrit (volume fraction) 31 % 35-52 Automated erythrocyte mean corpuscular volume 89 [ foz_us] 80-99 Automated erythrocyte mean corpuscular h emoglobin (mass per erythrocyte) 29 pg 25-34 Automated erythrocyte mean corpuscular h emoglobin concentration measurement (mass/volume) 32 g/dL 32-36 Automated erythrocyte distribution width ratio 14. 2 % 10.0- 14.5 Automated blood platelet count (count/volume) 274 10*3/uL 130-400 Automated blood platelet mean volume measurement 9.6 [foz_us] 7.4-10.4 Whole blood basic metabolic panel - 08/30 05:22 Serum or plasma sodium measurement (moles/volume) 143 mmol/L 135-145 Serum or plasma potassium measurement (moles/volume) 3.5 mmol/L 3.6-5.0 Serum or plasma chloride measurement (moles/volume) 105 mmol/L 98-107 Carbon dioxide 26 mmol/L 21-32 Serum or plasma anion gap determination (moles/volume) 12 mmol/L 5-14 Serum or plasma urea nitrogen measurement (mass/volume ) 13 mg/dL 7-18 Serum or plasma creatinine measurement (mass/volume) 1.41 mg/dL 0.60-1.30 Serum or plasma urea nitrogen/creatinine mass ratio 9 NRG Serum or plasma creatinine measurement w ith calculation of estimated glomerular filtration rate 38 NRG Serum or plasma glucose measurement (mass/volume) 105 mg/dL 70-105 Serum or plasma calcium measurement (mass/volume) 9.1 mg/dL 8.5-10.1 VITAMIN D, 25-H - 01/11/17 15:51 Vitamin D, 25-Hydroxy 27.8 ng/mL 30.0-10 0.0 TRILEPTAL (OXCARBAZEPIN) - 01/17/17 14:2 1 Oxcarbazepine 7 ug/mL 10-35 CULTURE, URINE - 02/23/17 17:45 CULTURE, URINE, ROUTINE SEE NOTE NRG CULTURE, URINE - 04/10/17 16:45 CULTURE, URINE, ROUTINE SEE NOTE NRG CULTURE, URINE - 04/19/17 16:21 CULTURE, URINE, ROUTINE SEE NOTE NRG Complete blood count (CBC) with automate d white blood cell (WBC) differential - 06/01/17 13:01 Blood leukocytes automated count (number/volume) 10.4 10*3/uL 4.3-11.0 Blood erythrocytes automated count (number/volume) 3.40 10*6/uL 4.35-5.85 Venous blood hemoglobin measurement (mass/volume) 10.3 g/dL 11.5-16.0 Blood hematocrit (volume fraction) 31 % 35-52 Automated erythrocyte mean corpuscular volume 91 [ foz_us] 80-99 Automated erythrocyte mean corpuscular h emoglobin (mass per erythrocyte) 30 pg 25-34 Automated erythrocyte mean corpuscular h emoglobin concentration measurement (mass/volume) 33 g/dL 32-36 Automated erythrocyte distribution width ratio 14. 4 % 10.0- 14.5 Automated blood platelet count (count/volume) 280 10*3/uL 130-400 Automated blood platelet mean volume measurement 10.9 [foz_us] 7.4-10.4 Automated blood neutrophils/100 leukocytes 68 % 42-75 Automated blood lymphocytes/100 leukocytes 18 % 12-44 Blood monocytes/100 leukocytes 10 % 0-12 Automated blood eosinophils/100 leukocytes 4 % 0-10 Automated blood basophils/100 leukocytes 1 % 0-10 Blood neutrophils automated count (number/volume) 7.0 10*3 1.8-7.8 Blood lymphocytes automated count (number/volume) 1.9 10*3 1.0-4.0 Blood monocytes automated count (number/volume) 1. 0 10*3 0.0-1.0 Automated eosinophil count 0.4 10*3/uL 0 .0-0.3 Automated blood basophil count (count/volume) 0.1 10*3/uL 0.0-0.1 Blood lactic acid measurement (moles/vol ume) - 06/01/17 13:01 Blood lactic acid measurement (moles/volume) 0.94 mmol/L 0.50-2.00 PT panel in platelet poor plasma by coag ulation assay - 06/01/17 13:01 Prothrombin time (PT) in platelet poor plasma by coagu lation assay 14.4 s 12.2-14.7 INR in platelet poor plasma or blood by coagulation as say 1.1 0.8-1.4 Activated partial thromboplastin time (a PTT) in platelet poor plasma bycoagulation assay - 06/01/17 13:01 Activated partial thromboplastin time (a PTT) in platelet poor plasma bycoagulation assay 32 s 24-35 Fibrin D-dimer FEU measurement in platel et poor plasma (mass/volume) - 06/01/17 13:01 Fibrin D-dimer FEU measurement in platelet poor plasma (mass/volume) 1.88 ug/mL 0.00-0.49 Comprehensive metabolic panel - 06/01/17 13:01 Serum or plasma sodium measurement (moles/volume) 138 mmol/L 135-145 Serum or plasma potassium measurement (moles/volume) 3.9 mmol/L 3.6-5.0 Serum or plasma chloride measurement (moles/volume) 105 mmol/L 98-107 Carbon dioxide 22 mmol/L 21-32 Serum or plasma anion gap determination (moles/volume) 11 mmol/L 5-14 Serum or plasma urea nitrogen measurement (mass/volume ) 22 mg/dL 7-18 Serum or plasma creatinine measurement (mass/volume) 2.37 mg/dL 0.60-1.30 Serum or plasma urea nitrogen/creatinine mass ratio 9 NRG Serum or plasma creatinine measurement w ith calculation of estimated glomerular filtration rate 21 NRG Serum or plasma glucose measurement (mass/volume) 90 mg/dL 70-105 Serum or plasma calcium measurement (mass/volume) 9.1 mg/dL 8.5-10.1 Serum or plasma total bilirubin measurement (mass/volu me) 0.5 mg/dL 0.1-1.0 Serum or plasma alkaline phosphatase kina surement (enzymatic activity/volume) 132 U/L 40-136 Serum or plasma aspartate aminotransfera se measurement (enzymatic activity/volume) 31 U/L 5-34 Serum or plasma alanine aminotransferase measurement (enzymatic activity/volume) 19 U/L 0-55 Serum or plasma protein measurement (mass/volume) 6.2 g/dL 6.4-8.2 Serum or plasma albumin measurement (mass/volume) 3.6 g/dL 3.2-4.5 Serum or plasma troponin i.cardiac measu rement (mass/volume) - 06/01/17 13:01 Serum or plasma troponin i.cardiac measurement (mass/v olume) < ng/mL <0.30 Serum or plasma salicylates measurement (mass/volume) - 06/01/17 13:01 Serum or plasma salicylates measurement (mass/volume) < mg/dL 5.0-20.0 Serum or plasma acetaminophen measuremen t (mass/volume) - 06/01/17 13:01 Serum or plasma acetaminophen measurement (mass/volume ) < ug/mL 10-30 Serum or plasma ethanol measurement (mas s/volume) - 06/01/17 13:01 Serum or plasma ethanol measurement (mass/volume) 19 mg/dL <10 Bacterial blood culture - 06/01/17 13:01 Bacterial blood culture NG NRG Complete urinalysis with reflex to cultu re - 06/01/17 13:10 Urine color determination PARVIN NRG Urine clarity determination CLEAR NR G Urine pH measurement by test strip 5 5-9 Specific gravity of urine by test strip 1.015 1.016-1.022 Urine protein assay by test strip, semi-quantitative 2+ NEGATIVE Urine glucose detection by automated test strip NE GATIVE NEGATIVE Erythrocytes detection in urine sediment by light micr oscopy 1+ NEGATIVE Urine ketones detection by automated test strip NE GATIVE NEGATIVE Urine nitrite detection by test strip NEGATIVE NEGATIVE Urine total bilirubin detection by test strip NEGA TIVE NEGATIVE Urine urobilinogen measurement by automated test strip (mass/volume) NORMAL NORMAL Urine leukocyte esterase detection by dipstick 2+ NEGATIVE Automated urine sediment erythrocyte cou nt by microscopy (number/high power field) [HPF] NRG Automated urine sediment leukocyte count by microscopy (number/high power field) [HPF] NRG Bacteria detection in urine sediment by light microsco py TRACE NRG Squamous epithelial cells detection in u rine sediment by light microscopy 5-10 NRG Crystals detection in urine sediment by light microsco py NONE NRG Casts detection in urine sediment by light microscopy PRESENT NRG Mucus detection in urine sediment by light microscopy NEGATIVE NRG Complete urinalysis with reflex to culture YES NRG Hyaline casts detection in urine sediment by light nathanael roscopy 2-5 NRG Urine drug screening test - 06/01/17 13: 10 Urine phencyclidine detection by screening method NEGATIVE NEGATIVE Urine benzodiazepines detection by screening method NEGATIVE NEGATIVE Urine cocaine detection NEGATIVE NEGATI VE Urine amphetamines detection by screening method N EGATIVE NEGATIVE Urine methamphetamine detection by screening method NEGATIVE NEGATIVE Urine cannabinoids detection by screening method N EGATIVE NEGATIVE Urine opiates detection by screening method POSITI VE NEGATIVE Urine barbiturates detection NEGATIVE N EGATIVE Screening urine tricyclic antidepressants detection POSITIVE NEGATIVE Urine methadone detection by screening method NEGA TIVE NEGATIVE Urine oxycodone detection POSITIVE NEGA TIVE Urine propoxyphene detection NEGATIVE N EGATIVE Bacterial urine culture - 06/01/17 13:10 Bacterial urine culture [id number] NRG COLONY COUNT 10,000/ML - 100,000/ML NRG Bacterial blood culture - 06/01/17 13:15 Bacterial blood culture NG NRG Arterial blood gas measurement - 8 14:55 Blood pCO2 48 mm[Hg] 35-45 Blood pO2 63 mm[Hg] 79-93 Arterial blood bicarbonate measurement (moles/volume) 20 mmol/L 23-27 Arterial blood base excess by calculation -5.9 mmo l/L -2.5-2.5 Arterial blood oxygen saturation measurement 93 % 94-100 * Inhaled oxygen flow rate 5 L NRG Arterial blood pH measurement with patient temperature correction 7.24 7.37-7.43 Arterial blood carbon dioxide, total measurement (mole s/volume) 21.9 mmol/L 21.0-31.0 Body site RIGHT RADIAL NRG Assessment of wrist artery patency prior to arterial p uncture POSITIVE NRG Setting of ventilation mode NO NR G Measurement of body temperature 97.3 NRG Methicillin resistant Staphylococcus aur eus (MRSA) screening culture - 06/01/17 18:50 Methicillin resistant Staphylococcus aureus (MRSA) scr eening culture NEG NRG Whole blood basic metabolic panel - 05/17 10/01 20:28 Serum or plasma sodium measurement (moles/volume) 140 mmol/L 135-145 Serum or plasma potassium measurement (moles/volume) 4.0 mmol/L 3.6-5.0 Serum or plasma chloride measurement (moles/volume) 111 mmol/L 98-107 Carbon dioxide 19 mmol/L 21-32 Serum or plasma anion gap determination (moles/volume) 10 mmol/L 5-14 Serum or plasma urea nitrogen measurement (mass/volume ) 17 mg/dL 7-18 Serum or plasma creatinine measurement (mass/volume) 1.54 mg/dL 0.60-1.30 Serum or plasma urea nitrogen/creatinine mass ratio 11 NRG Serum or plasma creatinine measurement w ith calculation of estimated glomerular filtration rate 35 NRG Serum or plasma glucose measurement (mass/volume) 83 mg/dL 70-105 Serum or plasma calcium measurement (mass/volume) 8.2 mg/dL 8.5-10.1 Complete blood count (CBC) with automate d white blood cell (WBC) differential - 06/02/17 04:12 Blood leukocytes automated count (number/volume) 5.6 10*3/uL 4.3-11.0 Blood erythrocytes automated count (number/volume) 2.90 10*6/uL 4.35-5.85 Venous blood hemoglobin measurement (mass/volume) 8.7 g/dL 11.5-16.0 Blood hematocrit (volume fraction) 27 % 35-52 Automated erythrocyte mean corpuscular volume 91 [ foz_us] 80-99 Automated erythrocyte mean corpuscular h emoglobin (mass per erythrocyte) 30 pg 25-34 Automated erythrocyte mean corpuscular h emoglobin concentration measurement (mass/volume) 33 g/dL 32-36 Automated erythrocyte distribution width ratio 14. 1 % 10.0- 14.5 Automated blood platelet count (count/volume) 192 10*3/uL 130-400 Automated blood platelet mean volume measurement 10.6 [foz_us] 7.4-10.4 Automated blood neutrophils/100 leukocytes 56 % 42-75 Automated blood lymphocytes/100 leukocytes 31 % 12-44 Blood monocytes/100 leukocytes 8 % 0-12 Automated blood eosinophils/100 leukocytes 5 % 0-10 Automated blood basophils/100 leukocytes 1 % 0-10 Blood neutrophils automated count (number/volume) 3.1 10*3 1.8-7.8 Blood lymphocytes automated count (number/volume) 1.7 10*3 1.0-4.0 Blood monocytes automated count (number/volume) 0. 5 10*3 0.0-1.0 Automated eosinophil count 0.3 10*3/uL 0 .0-0.3 Automated blood basophil count (count/volume) 0.0 10*3/uL 0.0-0.1 Comprehensive metabolic panel - 06/02/17 04:12 Serum or plasma sodium measurement (moles/volume) 144 mmol/L 135-145 Serum or plasma potassium measurement (moles/volume) 3.5 mmol/L 3.6-5.0 Serum or plasma chloride measurement (moles/volume) 115 mmol/L 98-107 Carbon dioxide 18 mmol/L 21-32 Serum or plasma anion gap determination (moles/volume) 11 mmol/L 5-14 Serum or plasma urea nitrogen measurement (mass/volume ) 15 mg/dL 7-18 Serum or plasma creatinine measurement (mass/volume) 1.21 mg/dL 0.60-1.30 Serum or plasma urea nitrogen/creatinine mass ratio 12 NRG Serum or plasma creatinine measurement w ith calculation of estimated glomerular filtration rate 46 NRG Serum or plasma glucose measurement (mass/volume) 82 mg/dL 70-105 Serum or plasma calcium measurement (mass/volume) 8.0 mg/dL 8.5-10.1 Serum or plasma total bilirubin measurement (mass/volu me) 0.3 mg/dL 0.1-1.0 Serum or plasma alkaline phosphatase kina surement (enzymatic activity/volume) 119 U/L 40-136 Serum or plasma aspartate aminotransfera se measurement (enzymatic activity/volume) 18 U/L 5-34 Serum or plasma alanine aminotransferase measurement (enzymatic activity/volume) 13 U/L 0-55 Serum or plasma protein measurement (mass/volume) 4.6 g/dL 6.4-8.2 Serum or plasma albumin measurement (mass/volume) 2.7 g/dL 3.2-4.5 Serum or plasma phosphate measurement (m ass/volume) - 06/02/17 04:12 Serum or plasma phosphate measurement (mass/volume) 3.8 mg/dL 2.3-4.7 Magnesium - 06/02/17 04:12 Magnesium 1.6 mg/dL 1.8-2.4 Complete blood count (CBC) with automate d white blood cell (WBC) differential - 06/03/17 04:55 Blood leukocytes automated count (number/volume) 6.0 10*3/uL 4.3-11.0 Blood erythrocytes automated count (number/volume) 3.04 10*6/uL 4.35-5.85 Venous blood hemoglobin measurement (mass/volume) 9.2 g/dL 11.5-16.0 Blood hematocrit (volume fraction) 27 % 35-52 Automated erythrocyte mean corpuscular volume 90 [ foz_us] 80-99 Automated erythrocyte mean corpuscular h emoglobin (mass per erythrocyte) 30 pg 25-34 Automated erythrocyte mean corpuscular h emoglobin concentration measurement (mass/volume) 34 g/dL 32-36 Automated erythrocyte distribution width ratio 14. 1 % 10.0- 14.5 Automated blood platelet count (count/volume) 231 10*3/uL 130-400 Automated blood platelet mean volume measurement 10.3 [foz_us] 7.4-10.4 Automated blood neutrophils/100 leukocytes 59 % 42-75 Automated blood lymphocytes/100 leukocytes 27 % 12-44 Blood monocytes/100 leukocytes 9 % 0-12 Automated blood eosinophils/100 leukocytes 5 % 0-10 Automated blood basophils/100 leukocytes 1 % 0-10 Blood neutrophils automated count (number/volume) 3.6 10*3 1.8-7.8 Blood lymphocytes automated count (number/volume) 1.6 10*3 1.0-4.0 Blood monocytes automated count (number/volume) 0. 6 10*3 0.0-1.0 Automated eosinophil count 0.3 10*3/uL 0 .0-0.3 Automated blood basophil count (count/volume) 0.0 10*3/uL 0.0-0.1 Whole blood basic metabolic panel - 05/17 12/01 04:55 Serum or plasma sodium measurement (moles/volume) 142 mmol/L 135-145 Serum or plasma potassium measurement (moles/volume) 3.7 mmol/L 3.6-5.0 Serum or plasma chloride measurement (moles/volume) 115 mmol/L 98-107 Carbon dioxide 19 mmol/L 21-32 Serum or plasma anion gap determination (moles/volume) 8 mmol/L 5-14 Serum or plasma urea nitrogen measurement (mass/volume ) 13 mg/dL 7-18 Serum or plasma creatinine measurement (mass/volume) 0.96 mg/dL 0.60-1.30 Serum or plasma urea nitrogen/creatinine mass ratio 14 NRG Serum or plasma creatinine measurement w ith calculation of estimated glomerular filtration rate 60 NRG Serum or plasma glucose measurement (mass/volume) 104 mg/dL 70-105 Serum or plasma calcium measurement (mass/volume) 8.8 mg/dL 8.5-10.1 Serum or plasma phosphate measurement (m ass/volume) - 06/03/17 04:55 Serum or plasma phosphate measurement (mass/volume) 3.6 mg/dL 2.3-4.7 Magnesium - 06/03/17 04:55 Magnesium 2.1 mg/dL 1.8-2.4 THYROID STIMULATING HORMONE - 06/03/17 0 4:55 THYROID STIMULATING HORMONE 3.76 u[iU]/mL 0.35-4.94 PROTEIN, TOTAL W/CREAT, RANDOM URINE - 0 06/05/17 11:06 CREATININE, RANDOM URINE 180 mg/dL 20-32 0 PROTEIN/CREATININE RATIO 178 mg/g creat 21-161 PROTEIN, TOTAL, RANDOM UR 32 mg/dL 5-24 CBC - 06/05/17 11:06 WHITE BLOOD CELL COUNT 7.6 Thousand/uL 3 .8-10.8 RED BLOOD CELL COUNT 3.49 Million/uL 3.8 0-5.10 HEMOGLOBIN 10.2 g/dL 11.7-15.5 HEMATOCRIT 31.3 % 35.0-45.0 MCV 89.7 fL 80.0-100.0 MCH 29.2 pg 27.0-33.0 MCHC 32.6 g/dL 32.0-36.0 RDW 14.0 % 11.0-15.0 PLATELET COUNT 283 Thousand/uL 140-400 MPV 10.8 fL 7.5-12.5 ABSOLUTE NEUTROPHILS 4735 cells/uL 1500- 7800 ABSOLUTE LYMPHOCYTES 1733 cells/uL 850-3 900 ABSOLUTE MONOCYTES 661 cells/uL 200-950 ABSOLUTE EOSINOPHILS 380 cells/uL 15-500 ABSOLUTE BASOPHILS 91 cells/uL 0-200 NEUTROPHILS 62.3 % NRG LYMPHOCYTES 22.8 % NRG MONOCYTES 8.7 % NRG EOSINOPHILS 5.0 % NRG BASOPHILS 1.2 % NRG UA W/ MICROSCOPY - 06/05/17 11:06 COLOR YELLOW YELLOW APPEARANCE CLEAR CLEAR SPECIFIC GRAVITY 1.021 1.001-1.035 PH 6.5 5.0-8.0 GLUCOSE NEGATIVE NEGATIVE BILIRUBIN NEGATIVE NEGATIVE KETONES TRACE NEGATIVE OCCULT BLOOD NEGATIVE NEGATIVE PROTEIN NEGATIVE NEGATIVE NITRITE NEGATIVE NEGATIVE LEUKOCYTE ESTERASE NEGATIVE NEGATIVE WBC 0-5 /HPF < OR = 5 RBC NONE SEEN /HPF < OR = 2 SQUAMOUS EPITHELIAL CELLS 0-5 /HPF < OR = 5 BACTERIA NONE SEEN /HPF NONE SEEN HYALINE CAST NONE SEEN /LPF NONE SEEN VITAMIN D, 25-H - 06/05/17 11:06 VITAMIN D,25-OH,TOTAL,IA 24 ng/mL 30-10 0 Complete urinalysis with reflex to cultu re - 06/25/17 14:47 Urine color determination YELLOW NRG Urine clarity determination CLEAR NR G Urine pH measurement by test strip 6 5-9 Specific gravity of urine by test strip 1.020 1.016-1.022 Urine protein assay by test strip, semi-quantitative 1+ NEGATIVE Urine glucose detection by automated test strip NE GATIVE NEGATIVE Erythrocytes detection in urine sediment by light micr oscopy NEGATIVE NEGATIVE Urine ketones detection by automated test strip NE GATIVE NEGATIVE Urine nitrite detection by test strip NEGATIVE NEGATIVE Urine total bilirubin detection by test strip NEGA TIVE NEGATIVE Urine urobilinogen measurement by automated test strip (mass/volume) NORMAL NORMAL Urine leukocyte esterase detection by dipstick 3+ NEGATIVE Automated urine sediment erythrocyte cou nt by microscopy (number/high power field) NONE NRG Automated urine sediment leukocyte count by microscopy (number/high power field) [HPF] NRG Bacteria detection in urine sediment by light microsco py FEW NRG Squamous epithelial cells detection in u rine sediment by light microscopy 5-10 NRG Crystals detection in urine sediment by light microsco py NONE NRG Casts detection in urine sediment by light microscopy PRESENT NRG Mucus detection in urine sediment by light microscopy NEGATIVE NRG Complete urinalysis with reflex to culture YES NRG Hyaline casts detection in urine sediment by light nathanael roscopy 2-5 NRG Bacterial urine culture - 06/25/17 14:47 Bacterial urine culture SEE COMMEN NRG COLONY COUNT . NRG FTX;REPORTABLE SENSITIVITY REPORTED 06/27/17 9:00 NRG Bacterial susceptibility panel - 8 14:47 Gentamicin susceptibility test by minimum inhibitory c oncentration <= NRG Trimethoprim/sulfamethoxazole susceptibi lity test by minimum inhibitoryconcentration S NRG Ampicillin susceptibility test by minimum inhibitory c oncentration >= NRG Tobramycin susceptibility test by minimum inhibitory c oncentration <= NRG Cefazolin susceptibility test by minimum inhibitory co ncentration <= NRG Ceftriaxone susceptibility test by minimum inhibitory concentration <= NRG Ampicillin/sulbactam susceptibility test by minimum inhibitory concentration S NRG Piperacillin/tazobactam susceptibility t est by minimum inhibitory concentration S NRG Ciprofloxacin susceptibility test by minimum inhibitor y concentration <= NRG Meropenem susceptibility test by minimum inhibitory co ncentration <= NRG Nitrofurantoin susceptibility test by mi nimum inhibitory concentration 32 NRG Aztreonam susceptibility test by minimum inhibitory co ncentration <= NRG Extended spectrum beta lactamase (ESBL) producing bacteria susceptibility test by minimum inhibitory concentration - [facility] RENAL PROFILE - 07/05/17 17:10 GLUCOSE 78 mg/dL 65-99 UREA NITROGEN (BUN) 33 mg/dL 7-25 CREATININE 1.74 mg/dL 0.50-1.05 eGFR NON-AFR. BAHAMIAN 32 mL/min/1.73m2 > OR = 60 eGFR 37 mL/min/1.73m2 > OR = 60 BUN/CREATININE RATIO 19 (calc) 6-22 SODIUM 141 mmol/L 135-146 POTASSIUM 4.3 mmol/L 3.5-5.3 CHLORIDE 106 mmol/L 98-110 CARBON DIOXIDE 21 mmol/L 20-31 CALCIUM 9.8 mg/dL 8.6-10.4 ALBUMIN 4.6 g/dL 3.6-5.1 PHOSPHATE ( PHOSPHORUS) 4.5 mg/dL 2.5- 4.5 Bacterial urine culture - 07/17/17 16:37 Bacterial urine culture [id number] [facility] COLONY COUNT <10,000 NRG FTX;REPORTABLE SENSITIVITY REPORTED AT 1047, 4-5-1 8 [facility] Bacterial susceptibility panel - 8 16:37 Gentamicin susceptibility test by minimum inhibitory c oncentration <= NRG Trimethoprim/sulfamethoxazole susceptibi lity test by minimum inhibitoryconcentration S NRG Ampicillin susceptibility test by minimum inhibitory c oncentration >= NRG Tobramycin susceptibility test by minimum inhibitory c oncentration <= NRG Cefazolin susceptibility test by minimum inhibitory co ncentration <= NRG Ceftriaxone susceptibility test by minimum inhibitory concentration <= NRG Ampicillin/sulbactam susceptibility test by minimum inhibitory concentration S NRG Piperacillin/tazobactam susceptibility t est by minimum inhibitory concentration S NRG Ciprofloxacin susceptibility test by minimum inhibitor y concentration <= NRG Meropenem susceptibility test by minimum inhibitory co ncentration <= NRG Nitrofurantoin susceptibility test by mi nimum inhibitory concentration 64 NRG Aztreonam susceptibility test by minimum inhibitory co ncentration <= NRG Extended spectrum beta lactamase (ESBL) producing bacteria susceptibility test by minimum inhibitory concentration - NR Bacterial susceptibility panel - 8 16:37 Gentamicin susceptibility test by minimum inhibitory c oncentration >= NRG Trimethoprim/sulfamethoxazole susceptibi lity test by minimum inhibitoryconcentration R NRG Ampicillin susceptibility test by minimum inhibitory c oncentration >= NRG Tobramycin susceptibility test by minimum inhibitory c oncentration >= NRG Cefazolin susceptibility test by minimum inhibitory co ncentration R NRG Ceftriaxone susceptibility test by minimum inhibitory concentration S NRG Ampicillin/sulbactam susceptibility test by minimum inhibitory concentration I NRG Piperacillin/tazobactam susceptibility t est by minimum inhibitory concentration S NRG Ciprofloxacin susceptibility test by minimum inhibitor y concentration >= NRG Meropenem susceptibility test by minimum inhibitory co ncentration 0.5 NRG Nitrofurantoin susceptibility test by mi nimum inhibitory concentration R NRG Aztreonam susceptibility test by minimum inhibitory co ncentration S NRG Amikacin susceptibility test by minimum inhibitory con centration S NRG Serum or plasma renal function panel (Na , K, Cl, CO2, BUN, Cr, glucose,Ca, phos, alb) - 07/24/17 17:04 Serum or plasma sodium measurement (moles/volume) 144 mmol/L 135-145 Serum or plasma potassium measurement (moles/volume) 3.7 mmol/L 3.6-5.0 Serum or plasma chloride measurement (moles/volume) 112 mmol/L 98-107 Carbon dioxide 25 mmol/L 21-32 Serum or plasma anion gap determination (moles/volume) 7 mmol/L 5-14 Serum or plasma urea nitrogen measurement (mass/volume ) 19 mg/dL 7-18 Serum or plasma creatinine measurement (mass/volume) 1.29 mg/dL 0.60-1.30 Serum or plasma urea nitrogen/creatinine mass ratio 15 NRG Serum or plasma creatinine measurement w ith calculation of estimated glomerular filtration rate 43 NRG Serum or plasma glucose measurement (mass/volume) 83 mg/dL 70-105 Serum or plasma calcium measurement (mass/volume) 9.8 mg/dL 8.5-10.1 Serum or plasma albumin measurement (mass/volume) 4.6 g/dL 3.2-4.5 Serum or plasma phosphate measurement (mass/volume) 3.8 mg/dL 2.3-4.7 Complete urinalysis with reflex to cultu re - 09/21/17 17:00 Urine color determination YELLOW NRG Urine clarity determination SLIGHTLY CLOUDY NRG Urine pH measurement by test strip 6 5-9 Specific gravity of urine by test strip 1.020 1.016-1.022 Urine protein assay by test strip, semi-quantitative NEGATIVE NEGATIVE Urine glucose detection by automated test strip NE GATIVE NEGATIVE Erythrocytes detection in urine sediment by light micr oscopy NEGATIVE NEGATIVE Urine ketones detection by automated test strip NE GATIVE NEGATIVE Urine nitrite detection by test strip NEGATIVE NEGATIVE Urine total bilirubin detection by test strip NEGA TIVE NEGATIVE Urine urobilinogen measurement by automated test strip (mass/volume) NORMAL NORMAL Urine leukocyte esterase detection by dipstick 3+ NEGATIVE Automated urine sediment erythrocyte cou nt by microscopy (number/high power field) NONE NRG Automated urine sediment leukocyte count by microscopy (number/high power field) > [HPF] NRG Bacteria detection in urine sediment by light microsco py LARGE NRG Squamous epithelial cells detection in u rine sediment by light microscopy 5-10 NRG Crystals detection in urine sediment by light microsco py NONE NRG Casts detection in urine sediment by light microscopy NONE NRG Mucus detection in urine sediment by light microscopy NEGATIVE NRG Complete urinalysis with reflex to culture YES NRG Serum or plasma renal function panel (Na , K, Cl, CO2, BUN, Cr, glucose,Ca, phos, alb) - 09/21/17 17:00 Serum or plasma sodium measurement (moles/volume) 143 mmol/L 135-145 Serum or plasma potassium measurement (moles/volume) 3.4 mmol/L 3.6-5.0 Serum or plasma chloride measurement (moles/volume) 111 mmol/L 98-107 Carbon dioxide 21 mmol/L 21-32 Serum or plasma anion gap determination (moles/volume) 11 mmol/L 5-14 Serum or plasma urea nitrogen measurement (mass/volume ) 24 mg/dL 7-18 Serum or plasma creatinine measurement (mass/volume) 1.39 mg/dL 0.60-1.30 Serum or plasma urea nitrogen/creatinine mass ratio 17 NRG Serum or plasma creatinine measurement w ith calculation of estimated glomerular filtration rate 39 NRG Serum or plasma glucose measurement (mass/volume) 92 mg/dL 70-105 Serum or plasma calcium measurement (mass/volume) 10.1 mg/dL 8.5-10.1 Serum or plasma albumin measurement (mass/volume) 4.7 g/dL 3.2-4.5 Serum or plasma phosphate measurement (mass/volume) 4.6 mg/dL 2.3-4.7 Bacterial urine culture - 09/21/17 17:00 Bacterial urine culture [id number] NRG COLONY COUNT >100,000/ML NRG FTX;REPORTABLE RML SENT SUSCEPTIBILITY REPORT 09/24 12:0 NRG Serum iron and total iron binding capaci ty panel - 09/21/17 17:00 Serum or plasma iron measurement (mass/volume) 51 % 35-180 Total iron binding capacity and transferrin saturation measurement 13 % 15-50 Iron binding capacity [mass/volume] in serum or plasma 401 % 280-380 UIBC (unsaturated iron binding capacity) 350 % 55-450 Serum or plasma ferritin measurement (mass/volume) 210.7 % 20.0-177.0 Serum or plasma intact pararthyroid horm one measurement (mass/volume) - 09/21/17 17:00 Serum or plasma intact parathyroid hormone measurement (mass/volume) 43.4 pg/mL 9.0-77.0 Bio-intact parathyroid hormone (PTH) measurement with calcium 10.2 % 8.5-10.5 RML Sensitivity Panel - 09/21/17 17:00 Gentamicin susceptibility test by minimum inhibitory c oncentration <= NRG Trimethoprim/sulfamethoxazole susceptibi lity test by minimum inhibitoryconcentration <= NRG Levofloxacin susceptibility test by minimum inhibitory concentration <= NRG Ampicillin susceptibility test by minimum inhibitory c oncentration > NRG Cefazolin susceptibility test by minimum inhibitory co ncentration <= NRG Ceftriaxone susceptibility test by minimum inhibitory concentration <= NRG Ciprofloxacin susceptibility test by minimum inhibitor y concentration <= NRG Meropenem susceptibility test by minimum inhibitory co ncentration <= NRG Nitrofurantoin susceptibility test by mi nimum inhibitory concentration 32 NRG Amoxicillin and clavulanate potassium susc NATHANAEL <= NRG VITAMIN D 25-HYDROXY - 09/21/17 17:00 VITAMIN D 25-HYDROXY (TOTAL) 18.6 % 3 0.0-100.0 CULTURE, URINE - 11/15/17 18:04 CULTURE, URINE, ROUTINE SEE NOTE NRG MARZENA ANALYZER - 12/12/17 16:40 MARZENA SCREEN, IFA NEGATIVE NEGATIVE Automated blood complete blood count (he mogram) panel - 12/20/17 17:20 Blood leukocytes automated count (number/volume) 6.1 10*3/uL 4.3-11.0 Blood erythrocytes automated count (number/volume) 3.87 10*6/uL 4.35-5.85 Venous blood hemoglobin measurement (mass/volume) 12.4 g/dL 11.5-16.0 Blood hematocrit (volume fraction) 37 % 35-52 Automated erythrocyte mean corpuscular volume 96 [ foz_us] 80-99 Automated erythrocyte mean corpuscular h emoglobin (mass per erythrocyte) 32 pg 25-34 Automated erythrocyte mean corpuscular h emoglobin concentration measurement (mass/volume) 34 g/dL 32-36 Automated erythrocyte distribution width ratio 13. 9 % 10.0- 14.5 Automated blood platelet count (count/volume) 235 10*3/uL 130-400 Automated blood platelet mean volume measurement 10.2 [foz_us] 7.4-10.4 Serum or plasma renal function panel (Na , K, Cl, CO2, BUN, Cr, glucose,Ca, phos, alb) - 12/20/17 17:20 Serum or plasma sodium measurement (moles/volume) 142 mmol/L 135-145 Serum or plasma potassium measurement (moles/volume) 3.8 mmol/L 3.6-5.0 Carbon dioxide 22 mmol/L 21-32 Serum or plasma anion gap determination (moles/volume) 7 mmol/L 5-14 Serum or plasma urea nitrogen measurement (mass/volume ) 21 mg/dL 7-18 Serum or plasma creatinine measurement (mass/volume) 1.17 mg/dL 0.60-1.30 Serum or plasma urea nitrogen/creatinine mass ratio 18 NRG Serum or plasma creatinine measurement w ith calculation of estimated glomerular filtration rate 48 NRG Serum or plasma glucose measurement (mass/volume) 95 mg/dL 70-105 Serum or plasma calcium measurement (mass/volume) 9.6 mg/dL 8.5-10.1 Serum or plasma albumin measurement (mass/volume) 4.4 g/dL 3.2-4.5 Serum or plasma phosphate measurement (mass/volume) 4.2 mg/dL 2.3-4.7 Serum iron and total iron binding capaci ty panel - 12/20/17 17:20 Serum or plasma iron measurement (mass/volume) 50 % 35-180 Total iron binding capacity and transferrin saturation measurement 20 % 15-50 Iron binding capacity [mass/volume] in serum or plasma 254 % 280-380 UIBC (unsaturated iron binding capacity) 204 % 55-450 Serum or plasma ferritin measurement (mass/volume) 395.6 % 20.0-177.0 Serum or plasma intact pararthyroid horm one measurement (mass/volume) - 12/20/17 17:20 Serum or plasma intact parathyroid hormone measurement (mass/volume) 35.9 pg/mL 9.0-77.0 Bio-intact parathyroid hormone (PTH) measurement with calcium 9.5 % 8.5-10.5 VITAMIN D 25-HYDROXY - 12/20/17 17:20 VITAMIN D 25-HYDROXY (TOTAL) 20.7 % 3 0.0-100.0 Urine protein/creatinine mass ratio - 17:30 Urine protein measurement (mass/volume) 9 mg/dL 6-12 Urine creatinine measurement (mass/volume) 152 mg/ dL 30-125 Urine protein/creatinine mass ratio 0.06 NRG VITAMIN D, 25-H - 01/10/18 18:09 VITAMIN D,25-OH,TOTAL,IA 28 ng/mL 30-10 0 CULTURE, URINE - 01/24/18 17:30 CULTURE, URINE, ROUTINE SEE NOTE NRG Automated blood complete blood count (he mogram) panel - 02/04/18 11:10 Blood leukocytes automated count (number/volume) 7.1 10*3/uL 4.3-11.0 Blood erythrocytes automated count (number/volume) 3.92 10*6/uL 4.35-5.85 Venous blood hemoglobin measurement (mass/volume) 12.4 g/dL 11.5-16.0 Blood hematocrit (volume fraction) 38 % 35-52 Automated erythrocyte mean corpuscular volume 96 [ foz_us] 80-99 Automated erythrocyte mean corpuscular h emoglobin (mass per erythrocyte) 32 pg 25-34 Automated erythrocyte mean corpuscular h emoglobin concentration measurement (mass/volume) 33 g/dL 32-36 Automated erythrocyte distribution width ratio 13. 1 % 10.0- 14.5 Automated blood platelet count (count/volume) 255 10*3/uL 130-400 Automated blood platelet mean volume measurement 10.7 [foz_us] 7.4-10.4 Serum or plasma renal function panel (Na , K, Cl, CO2, BUN, Cr, glucose,Ca, phos, alb) - 02/04/18 11:10 Serum or plasma sodium measurement (moles/volume) 145 mmol/L 135-145 Serum or plasma potassium measurement (moles/volume) 4.3 mmol/L 3.6-5.0 Serum or plasma chloride measurement (moles/volume) 111 mmol/L 98-107 Carbon dioxide 22 mmol/L 21-32 Serum or plasma anion gap determination (moles/volume) 12 mmol/L 5-14 Serum or plasma urea nitrogen measurement (mass/volume ) 31 mg/dL 7-18 Serum or plasma creatinine measurement (mass/volume) 1.26 mg/dL 0.60-1.30 Serum or plasma urea nitrogen/creatinine mass ratio 25 NRG Serum or plasma creatinine measurement w ith calculation of estimated glomerular filtration rate 44 NRG Serum or plasma glucose measurement (mass/volume) 100 mg/dL 70-105 Serum or plasma calcium measurement (mass/volume) 9.6 mg/dL 8.5-10.1 Serum or plasma albumin measurement (mass/volume) 4.7 g/dL 3.2-4.5 Serum or plasma phosphate measurement (mass/volume) 4.6 mg/dL 2.3-4.7 Complete urinalysis with reflex to cultu re - 02/04/18 11:10 Urine color determination YELLOW NRG Urine clarity determination CLEAR NR G Urine pH measurement by test strip 5 5-9 Specific gravity of urine by test strip 1.020 1.016-1.022 Urine protein assay by test strip, semi-quantitative 1+ NEGATIVE Urine glucose detection by automated test strip NE GATIVE NEGATIVE Erythrocytes detection in urine sediment by light micr oscopy NEGATIVE NEGATIVE Urine ketones detection by automated test strip NE GATIVE NEGATIVE Urine nitrite detection by test strip NEGATIVE NEGATIVE Urine total bilirubin detection by test strip NEGA TIVE NEGATIVE Urine urobilinogen measurement by automated test strip (mass/volume) NORMAL NORMAL Urine leukocyte esterase detection by dipstick 3+ NEGATIVE Automated urine sediment erythrocyte cou nt by microscopy (number/high power field) RARE NRG Automated urine sediment leukocyte count by microscopy (number/high power field) [HPF] NRG Bacteria detection in urine sediment by light microsco py FEW NRG Squamous epithelial cells detection in u rine sediment by light microscopy 2-5 NRG Crystals detection in urine sediment by light microsco py NONE NRG Casts detection in urine sediment by light microscopy NONE NRG Mucus detection in urine sediment by light microscopy NEGATIVE NRG Complete urinalysis with reflex to culture YES NRG Urine protein/creatinine mass ratio - 11:10 Urine protein measurement (mass/volume) 9 mg/dL 6-12 Urine creatinine measurement (mass/volume) 136 mg/ dL 30-125 Urine protein/creatinine mass ratio 0.07 NRG Serum iron and total iron binding capaci ty panel - 02/04/18 11:10 Serum or plasma iron measurement (mass/volume) 107 % 35-180 Total iron binding capacity and transferrin saturation measurement 28 % 15-50 Iron binding capacity [mass/volume] in serum or plasma 389 % 280-380 UIBC (unsaturated iron binding capacity) 282 % 55-450 Serum or plasma ferritin measurement (mass/volume) 403.0 % 20.0-177.0 Serum or plasma intact pararthyroid horm one measurement (mass/volume) - 02/04/18 11:10 Serum or plasma intact parathyroid hormone measurement (mass/volume) 38.5 pg/mL 9.0-77.0 Bio-intact parathyroid hormone (PTH) measurement with calcium 9.7 % 8.5-10.5 VITAMIN D 25-HYDROXY - 02/04/18 11:10 VITAMIN D 25-HYDROXY (TOTAL) 20.1 % 3 0.0-100.0 Bacterial urine culture - 02/04/18 11:10 Bacterial urine culture SEE COMMEN NRG COLONY COUNT . NRG CULTURE, URINE - 02/21/18 16:44 CULTURE, URINE, ROUTINE SEE NOTE NRG CULTURE, URINE - 03/29/18 00:00 CULTURE, URINE, ROUTINE SEE NOTE NRG Complete blood count (CBC) with automate d white blood cell (WBC) differential - 05/08/18 19:28 Blood leukocytes automated count (number/volume) 11.4 10*3/uL 4.3-11.0 Blood erythrocytes automated count (number/volume) 3.82 10*6/uL 4.35-5.85 Venous blood hemoglobin measurement (mass/volume) 12.0 g/dL 11.5-16.0 Blood hematocrit (volume fraction) 37 % 35-52 Automated erythrocyte mean corpuscular volume 98 [ foz_us] 80-99 Automated erythrocyte mean corpuscular h emoglobin (mass per erythrocyte) 31 pg 25-34 Automated erythrocyte mean corpuscular h emoglobin concentration measurement (mass/volume) 32 g/dL 32-36 Automated erythrocyte distribution width ratio 13. 2 % 10.0- 14.5 Automated blood platelet count (count/volume) 251 10*3/uL 130-400 Automated blood platelet mean volume measurement 10.0 [foz_us] 7.4-10.4 Automated blood neutrophils/100 leukocytes 70 % 42-75 Automated blood lymphocytes/100 leukocytes 20 % 12-44 Blood monocytes/100 leukocytes 9 % 0-12 Automated blood eosinophils/100 leukocytes 2 % 0-10 Automated blood basophils/100 leukocytes 0 % 0-10 Blood neutrophils automated count (number/volume) 7.9 10*3 1.8-7.8 Blood lymphocytes automated count (number/volume) 2.2 10*3 1.0-4.0 Blood monocytes automated count (number/volume) 1. 0 10*3 0.0-1.0 Automated eosinophil count 0.2 10*3/uL 0 .0-0.3 Automated blood basophil count (count/volume) 0.0 10*3/uL 0.0-0.1 PT panel in platelet poor plasma by coag ulation assay - 05/08/18 19:28 Prothrombin time (PT) in platelet poor plasma by coagu lation assay 13.5 s 12.2-14.7 INR in platelet poor plasma or blood by coagulation as say 1.0 0.8-1.4 Activated partial thromboplastin time (a PTT) in platelet poor plasma bycoagulation assay - 05/08/18 19:28 Activated partial thromboplastin time (a PTT) in platelet poor plasma bycoagulation assay 23 s 24-35 Fibrin D-dimer FEU measurement in platel et poor plasma (mass/volume) - 05/08/18 19:28 Fibrin D-dimer FEU measurement in platelet poor plasma (mass/volume) 0.55 ug/mL 0.00-0.49 Comprehensive metabolic panel - 05/08/18 19:28 Serum or plasma sodium measurement (moles/volume) 144 mmol/L 135-145 Serum or plasma potassium measurement (moles/volume) 3.7 mmol/L 3.6-5.0 Serum or plasma chloride measurement (moles/volume) 106 mmol/L 98-107 Carbon dioxide 28 mmol/L 21-32 Serum or plasma anion gap determination (moles/volume) 10 mmol/L 5-14 Serum or plasma urea nitrogen measurement (mass/volume ) 29 mg/dL 7-18 Serum or plasma creatinine measurement (mass/volume) 1.12 mg/dL 0.60-1.30 Serum or plasma urea nitrogen/creatinine mass ratio 26 NRG Serum or plasma creatinine measurement w ith calculation of estimated glomerular filtration rate 50 NRG Serum or plasma glucose measurement (mass/volume) 116 mg/dL 70-105 Serum or plasma calcium measurement (mass/volume) 9.1 mg/dL 8.5-10.1 Serum or plasma total bilirubin measurement (mass/volu me) 0.3 mg/dL 0.1-1.0 Serum or plasma alkaline phosphatase kina surement (enzymatic activity/volume) 115 U/L 40-136 Serum or plasma aspartate aminotransfera se measurement (enzymatic activity/volume) 14 U/L 5-34 Serum or plasma alanine aminotransferase measurement (enzymatic activity/volume) 10 U/L 0-55 Serum or plasma protein measurement (mass/volume) 7.2 g/dL 6.4-8.2 Serum or plasma albumin measurement (mass/volume) 4.3 g/dL 3.2-4.5 CALCIUM CORRECTED 8.9 mg/dL 8.5-10.1 Magnesium - 05/08/18 19:28 Magnesium 2.3 mg/dL 1.8-2.4 Serum or plasma troponin i.cardiac measu rement (mass/volume) - 05/08/18 19:28 Serum or plasma troponin i.cardiac measurement (mass/v olume) < ng/mL <0.028 Myoglobin, serum - 05/08/18 19:28 Myoglobin, serum 38.8 ng/mL 10.0-92.0 Lipase - 05/08/18 19:28 Lipase 28 U/L 8-78 Serum or plasma lithium measurement (mol es/volume) - 05/08/18 19:28 BNP level 122.8 pg/mL <100.0 Serum or plasma troponin i.cardiac measu rement (mass/volume) - 05/08/18 21:45 Serum or plasma troponin i.cardiac measurement (mass/v olume) < ng/mL <0.028 Automated blood complete blood count (he mogram) panel - 05/29/18 07:47 Blood leukocytes automated count (number/volume) 7.0 10*3/uL 4.3-11.0 Blood erythrocytes automated count (number/volume) 3.78 10*6/uL 4.35-5.85 Venous blood hemoglobin measurement (mass/volume) 12.0 g/dL 11.5-16.0 Blood hematocrit (volume fraction) 36 % 35-52 Automated erythrocyte mean corpuscular volume 95 [ foz_us] 80-99 Automated erythrocyte mean corpuscular h emoglobin (mass per erythrocyte) 32 pg 25-34 Automated erythrocyte mean corpuscular h emoglobin concentration measurement (mass/volume) 33 g/dL 32-36 Automated erythrocyte distribution width ratio 13. 2 % 10.0- 14.5 Automated blood platelet count (count/volume) 280 10*3/uL 130-400 Automated blood platelet mean volume measurement 9.8 [foz_us] 7.4-10.4 Complete urinalysis with reflex to cultu re - 05/29/18 07:47 Urine color determination YELLOW NRG Urine clarity determination CLEAR NR G Urine pH measurement by test strip 6 5-9 Specific gravity of urine by test strip 1.015 1.016-1.022 Urine protein assay by test strip, semi-quantitative 1+ NEGATIVE Urine glucose detection by automated test strip NE GATIVE NEGATIVE Erythrocytes detection in urine sediment by light micr oscopy 1+ NEGATIVE Urine ketones detection by automated test strip NE GATIVE NEGATIVE Urine nitrite detection by test strip POSITIVE NEGATIVE Urine total bilirubin detection by test strip NEGA TIVE NEGATIVE Urine urobilinogen measurement by automated test strip (mass/volume) NORMAL NORMAL Urine leukocyte esterase detection by dipstick 3+ NEGATIVE Automated urine sediment erythrocyte cou nt by microscopy (number/high power field) RARE NRG Automated urine sediment leukocyte count by microscopy (number/high power field) > [HPF] NRG Bacteria detection in urine sediment by light microsco py MODERATE NRG Squamous epithelial cells detection in u rine sediment by light microscopy 5-10 NRG Crystals detection in urine sediment by light microsco py NONE NRG Casts detection in urine sediment by light microscopy NONE NRG Mucus detection in urine sediment by light microscopy NEGATIVE NRG Complete urinalysis with reflex to culture NO NRG PT panel in platelet poor plasma by coag ulation assay - 05/29/18 07:47 Prothrombin time (PT) in platelet poor plasma by coagu lation assay 13.2 s 12.2-14.7 INR in platelet poor plasma or blood by coagulation as say 1.0 0.8-1.4 Activated partial thromboplastin time (a PTT) in platelet poor plasma bycoagulation assay - 05/29/18 07:47 Activated partial thromboplastin time (a PTT) in platelet poor plasma bycoagulation assay 29 s 24-35 Comprehensive metabolic panel - 05/29/18 07:47 Serum or plasma sodium measurement (moles/volume) 142 mmol/L 135-145 Serum or plasma potassium measurement (moles/volume) 3.9 mmol/L 3.6-5.0 Serum or plasma chloride measurement (moles/volume) 105 mmol/L 98-107 Carbon dioxide 25 mmol/L 21-32 Serum or plasma anion gap determination (moles/volume) 12 mmol/L 5-14 Serum or plasma urea nitrogen measurement (mass/volume ) 21 mg/dL 7-18 Serum or plasma creatinine measurement (mass/volume) 1.13 mg/dL 0.60-1.30 Serum or plasma urea nitrogen/creatinine mass ratio 19 NRG Serum or plasma creatinine measurement w ith calculation of estimated glomerular filtration rate 49 NRG Serum or plasma glucose measurement (mass/volume) 101 mg/dL 70-105 Serum or plasma calcium measurement (mass/volume) 9.9 mg/dL 8.5-10.1 Serum or plasma total bilirubin measurement (mass/volu me) 0.4 mg/dL 0.1-1.0 Serum or plasma alkaline phosphatase kina surement (enzymatic activity/volume) 117 U/L 40-136 Serum or plasma aspartate aminotransfera se measurement (enzymatic activity/volume) 18 U/L 5-34 Serum or plasma alanine aminotransferase measurement (enzymatic activity/volume) 15 U/L 0-55 Serum or plasma protein measurement (mass/volume) 7.6 g/dL 6.4-8.2 Serum or plasma albumin measurement (mass/volume) 4.5 g/dL 3.2-4.5 CALCIUM CORRECTED 9.5 mg/dL 8.5-10.1 Lipid 1996 panel - 05/29/18 07:47 Serum or plasma triglyceride measurement (mass/volume) 81 mg/dL <150 Serum or plasma cholesterol measurement (mass/volume) 214 mg/dL < 200 Serum or plasma cholesterol in HDL measurement (mass/v olume) 56 mg/dL 40-60 Cholesterol in LDL [mass/volume] in serum or plasma by direct assay 153 mg/dL 1-129 Serum or plasma cholesterol in VLDL measurement (mass/ volume) 16 mg/dL 5-40 Methicillin resistant Staphylococcus aur eus (MRSA) screening culture - 05/29/18 07:47 Methicillin resistant Staphylococcus aureus (MRSA) scr eening culture NEG NRG Automated blood complete blood count (he mogram) panel - 07/17/18 17:11 Blood leukocytes automated count (number/volume) 7.4 10*3/uL 4.3-11.0 Blood erythrocytes automated count (number/volume) 3.63 10*6/uL 4.35-5.85 Venous blood hemoglobin measurement (mass/volume) 11.4 g/dL 11.5-16.0 Blood hematocrit (volume fraction) 35 % 35-52 Automated erythrocyte mean corpuscular volume 96 [ foz_us] 80-99 Automated erythrocyte mean corpuscular h emoglobin (mass per erythrocyte) 31 pg 25-34 Automated erythrocyte mean corpuscular h emoglobin concentration measurement (mass/volume) 33 g/dL 32-36 Automated erythrocyte distribution width ratio 13. 5 % 10.0- 14.5 Automated blood platelet count (count/volume) 225 10*3/uL 130-400 Automated blood platelet mean volume measurement 10.5 [foz_us] 7.4-10.4 Serum or plasma renal function panel (Na , K, Cl, CO2, BUN, Cr, glucose,Ca, phos, alb) - 07/17/18 17:11 Serum or plasma sodium measurement (moles/volume) 143 mmol/L 135-145 Serum or plasma potassium measurement (moles/volume) 3.9 mmol/L 3.6-5.0 Serum or plasma chloride measurement (moles/volume) 107 mmol/L 98-107 Carbon dioxide 28 mmol/L 21-32 Serum or plasma anion gap determination (moles/volume) 8 mmol/L 5-14 Serum or plasma urea nitrogen measurement (mass/volume ) 20 mg/dL 7-18 Serum or plasma creatinine measurement (mass/volume) 1.15 mg/dL 0.60-1.30 Serum or plasma urea nitrogen/creatinine mass ratio 17 NRG Serum or plasma creatinine measurement w ith calculation of estimated glomerular filtration rate 48 NRG Serum or plasma glucose measurement (mass/volume) 87 mg/dL 70-105 Serum or plasma calcium measurement (mass/volume) 10.0 mg/dL 8.5-10.1 Serum or plasma albumin measurement (mass/volume) 4.4 g/dL 3.2-4.5 Serum or plasma phosphate measurement (mass/volume) 3.8 mg/dL 2.3-4.7 Serum or plasma uric acid measurement (m ass/volume) - 07/17/18 17:11 Serum or plasma uric acid measurement (mass/volume) 5.3 mg/dL 2.6-7.2 Magnesium - 07/17/18 17:11 Magnesium 2.1 mg/dL 1.8-2.4 Lipid 1996 panel - 07/17/18 17:11 Serum or plasma triglyceride measurement (mass/volume) 47 mg/dL <150 Serum or plasma cholesterol measurement (mass/volume) 173 mg/dL < 200 Serum or plasma cholesterol in HDL measurement (mass/v olume) 56 mg/dL 40-60 Cholesterol in LDL [mass/volume] in serum or plasma by direct assay 113 mg/dL 1-129 Serum or plasma cholesterol in VLDL measurement (mass/ volume) 9 mg/dL 5-40 VITAMIN D 25-HYDROXY - 07/17/18 17:11 VITAMIN D 25-HYDROXY (TOTAL) 23.6 % 3 0.0-100.0 Complete urinalysis with reflex to cultu re - 07/17/18 17:18 Urine color determination YELLOW NRG Urine clarity determination SLIGHTLY CLOUDY NRG Urine pH measurement by test strip 6.5 5-9 Specific gravity of urine by test strip 1.010 1.016-1.022 Urine protein assay by test strip, semi-quantitative 1+ NEGATIVE Urine glucose detection by automated test strip NE GATIVE NEGATIVE Erythrocytes detection in urine sediment by light micr oscopy 1+ NEGATIVE Urine ketones detection by automated test strip NE GATIVE NEGATIVE Urine nitrite detection by test strip POSITIVE NEGATIVE Urine total bilirubin detection by test strip NEGA TIVE NEGATIVE Urine urobilinogen measurement by automated test strip (mass/volume) NORMAL NORMAL Urine leukocyte esterase detection by dipstick 3+ NEGATIVE Automated urine sediment erythrocyte cou nt by microscopy (number/high power field) [HPF] NRG Automated urine sediment leukocyte count by microscopy (number/high power field) TNTC NRG Bacteria detection in urine sediment by light microsco py LARGE NRG Crystals detection in urine sediment by light microsco py NONE NRG Casts detection in urine sediment by light microscopy NONE NRG Mucus detection in urine sediment by light microscopy NEGATIVE NRG Complete urinalysis with reflex to culture YES NRG Urine protein/creatinine mass ratio - 17:18 Urine protein measurement (mass/volume) 16 mg/dL 6-12 Urine creatinine measurement (mass/volume) 58 mg/d L 30-125 Urine protein/creatinine mass ratio 0.28 NRG Bacterial urine culture - 07/17/18 17:18 Bacterial urine culture [id number] NRG COLONY COUNT >100,000/ML NRG FTX;REPORTABLE SENSITIVITY REPORTED 07/19/18 9:05 NRG FREE TEXT ENTRY 2 ID REPORTED 07/18/18 17:05 NRG RML Sensitivity Panel - 07/17/18 17:18 Gentamicin susceptibility test by minimum inhibitory c oncentration <= NRG Trimethoprim/sulfamethoxazole susceptibi lity test by minimum inhibitoryconcentration <= NRG Levofloxacin susceptibility test by minimum inhibitory concentration <= NRG Ampicillin susceptibility test by minimum inhibitory c oncentration > NRG Cefazolin susceptibility test by minimum inhibitory co ncentration 4 NRG Ceftriaxone susceptibility test by minimum inhibitory concentration <= NRG Ciprofloxacin susceptibility test by minimum inhibitor y concentration 1 NRG Meropenem susceptibility test by minimum inhibitory co ncentration <= NRG Nitrofurantoin susceptibility test by mi nimum inhibitory concentration > NRG Amoxicillin and clavulanate potassium susc NATHANAEL <= NRG Influenza virus A and B antigen detectio n - 08/03/18 15:06 FLU RESULT NEGATIVE FOR INFLUENZA A AND B ANTIGENS BY IA NRG Complete blood count (CBC) with automate d white blood cell (WBC) differential - 08/03/18 15:20 Blood leukocytes automated count (number/volume) 13.0 10*3/uL 4.3-11.0 Blood erythrocytes automated count (number/volume) 3.87 10*6/uL 4.35-5.85 Venous blood hemoglobin measurement (mass/volume) 12.1 g/dL 11.5-16.0 Blood hematocrit (volume fraction) 38 % 35-52 Automated erythrocyte mean corpuscular volume 97 [ foz_us] 80-99 Automated erythrocyte mean corpuscular h emoglobin (mass per erythrocyte) 31 pg 25-34 Automated erythrocyte mean corpuscular h emoglobin concentration measurement (mass/volume) 32 g/dL 32-36 Automated erythrocyte distribution width ratio 13. 2 % 10.0- 14.5 Automated blood platelet count (count/volume) 226 10*3/uL 130-400 Automated blood platelet mean volume measurement 9.9 [foz_us] 7.4-10.4 Automated blood neutrophils/100 leukocytes 78 % 42-75 Automated blood lymphocytes/100 leukocytes 11 % 12-44 Blood monocytes/100 leukocytes 11 % 0-12 Automated blood eosinophils/100 leukocytes 0 % 0-10 Automated blood basophils/100 leukocytes 0 % 0-10 Blood neutrophils automated count (number/volume) 10.1 10*3 1.8-7.8 Blood lymphocytes automated count (number/volume) 1.4 10*3 1.0-4.0 Blood monocytes automated count (number/volume) 1. 4 10*3 0.0-1.0 Automated eosinophil count 0.0 10*3/uL 0 .0-0.3 Automated blood basophil count (count/volume) 0.0 10*3/uL 0.0-0.1 PT panel in platelet poor plasma by coag ulation assay - 08/03/18 15:20 Prothrombin time (PT) in platelet poor plasma by coagu lation assay 14.8 s 12.2-14.7 INR in platelet poor plasma or blood by coagulation as say 1.1 0.8-1.4 Activated partial thromboplastin time (a PTT) in platelet poor plasma bycoagulation assay - 08/03/18 15:20 Activated partial thromboplastin time (a PTT) in platelet poor plasma bycoagulation assay 34 s 24-35 Blood lactic acid measurement (moles/vol ume) - 08/03/18 15:20 Blood lactic acid measurement (moles/volume) 0.82 mmol/L 0.50-2.00 Comprehensive metabolic panel - 08/03/18 15:20 Serum or plasma sodium measurement (moles/volume) 139 mmol/L 135-145 Serum or plasma potassium measurement (moles/volume) 4.0 mmol/L 3.6-5.0 Serum or plasma chloride measurement (moles/volume) 103 mmol/L 98-107 Carbon dioxide 24 mmol/L 21-32 Serum or plasma anion gap determination (moles/volume) 12 mmol/L 5-14 Serum or plasma urea nitrogen measurement (mass/volume ) 24 mg/dL 7-18 Serum or plasma creatinine measurement (mass/volume) 1.55 mg/dL 0.60-1.30 Serum or plasma urea nitrogen/creatinine mass ratio 15 NRG Serum or plasma creatinine measurement w ith calculation of estimated glomerular filtration rate 34 NRG Serum or plasma glucose measurement (mass/volume) 115 mg/dL 70-105 Serum or plasma calcium measurement (mass/volume) 9.9 mg/dL 8.5-10.1 Serum or plasma total bilirubin measurement (mass/volu me) 0.5 mg/dL 0.1-1.0 Serum or plasma alkaline phosphatase kina surement (enzymatic activity/volume) 100 U/L 40-136 Serum or plasma aspartate aminotransfera se measurement (enzymatic activity/volume) 14 U/L 5-34 Serum or plasma alanine aminotransferase measurement (enzymatic activity/volume) 12 U/L 0-55 Serum or plasma protein measurement (mass/volume) 7.5 g/dL 6.4-8.2 Serum or plasma albumin measurement (mass/volume) 4.3 g/dL 3.2-4.5 CALCIUM CORRECTED 9.7 mg/dL 8.5-10.1 Lipase - 08/03/18 15:20 Lipase 18 U/L 8-78 Bacterial blood culture - 08/03/18 15:20 FREE TEXT EXTERNAL ID REPORTED BY [facility] 08/04 17:05 NR QUANTITY OF GROWTH Isolated [facility] Bacterial blood culture [id number] [facility] FREE TEXT ENTRY 2 [facility] REPORTED SUSCEPTIBILITY 08/06 9[facility] - 08/03/18 15:2 0 Gentamicin susceptibility test by minimum inhibitory c oncentration <= NRG Trimethoprim/sulfamethoxazole susceptibi lity test by minimum inhibitoryconcentration = NRG Levofloxacin susceptibility test by minimum inhibitory concentration <= NRG Ampicillin susceptibility test by minimum inhibitory c oncentration > NRG Cefazolin susceptibility test by minimum inhibitory co ncentration 4 NRG Ceftriaxone susceptibility test by minimum inhibitory concentration <= NRG Piperacillin/tazobactam susceptibility t est by minimum inhibitory concentration = NRG Ciprofloxacin susceptibility test by minimum inhibitor y concentration 1 NRG Meropenem susceptibility test by minimum inhibitory co ncentration <= NRG Amoxicillin and clavulanate potassium susc NATHANAEL <= NRG Imipenem susceptibility test by minimum inhibitory con centration <= NRG Bacterial blood culture - 08/03/18 15:35 FREE TEXT EXTERNAL REFER TO PREV CULTURE FOR SUSCEPTIBILITY NRG QUANTITY OF GROWTH Isolated NRG Bacterial blood culture [id number] NR FREE TEXT ENTRY 2 ORGANISM ID REPORT RCD 08/04 18:0 5 NRG Complete urinalysis with reflex to cultu re - 08/03/18 16:09 Urine color determination YELLOW NRG Urine clarity determination VERY CLOUDY NRG Urine pH measurement by test strip 6 5-9 Specific gravity of urine by test strip 1.010 1.016-1.022 Urine protein assay by test strip, semi-quantitative 3+ NEGATIVE Urine glucose detection by automated test strip NE GATIVE NEGATIVE Erythrocytes detection in urine sediment by light micr oscopy 3+ NEGATIVE Urine ketones detection by automated test strip NE GATIVE NEGATIVE Urine nitrite detection by test strip POSITIVE NEGATIVE Urine total bilirubin detection by test strip NEGA TIVE NEGATIVE Urine urobilinogen measurement by automated test strip (mass/volume) NORMAL NORMAL Urine leukocyte esterase detection by dipstick 3+ NEGATIVE Automated urine sediment erythrocyte cou nt by microscopy (number/high power field) [HPF] NRG Automated urine sediment leukocyte count by microscopy (number/high power field) > [HPF] NRG Bacteria detection in urine sediment by light microsco py MODERATE NRG Squamous epithelial cells detection in u rine sediment by light microscopy 2-5 NRG Crystals detection in urine sediment by light microsco py NONE NRG Casts detection in urine sediment by light microscopy NONE NRG Mucus detection in urine sediment by light microscopy NEGATIVE NRG Complete urinalysis with reflex to culture CULTURE PENDING NRG Bacterial urine culture - 08/03/18 16:09 Bacterial urine culture [id number] NRG COLONY COUNT >100,000/ML NRG FTX;REPORTABLE SUSCEPTIBILITY REPORTED 08-05-18 10 05. NRG FREE TEXT ENTRY 3 ORGANISM ID REPORT RCD 08/04 18:0 5 NRG RML Sensitivity Panel - 08/03/18 16:09 Gentamicin susceptibility test by minimum inhibitory c oncentration <= NRG Trimethoprim/sulfamethoxazole susceptibi lity test by minimum inhibitoryconcentration <= NRG Levofloxacin susceptibility test by minimum inhibitory concentration <= NRG Ampicillin susceptibility test by minimum inhibitory c oncentration > NRG Cefazolin susceptibility test by minimum inhibitory co ncentration 4 NRG Ceftriaxone susceptibility test by minimum inhibitory concentration <= NRG Ciprofloxacin susceptibility test by minimum inhibitor y concentration 1 NRG Meropenem susceptibility test by minimum inhibitory co ncentration <= NRG Nitrofurantoin susceptibility test by mi nimum inhibitory concentration > NRG Amoxicillin and clavulanate potassium susc NATHANAEL <= NRG Blood lactic acid measurement (moles/vol ume) - 08/03/18 20:40 Blood lactic acid measurement (moles/volume) 0.42 mmol/L 0.50-2.00 Automated blood complete blood count (he mogram) panel - 08/04/18 07:55 Blood leukocytes automated count (number/volume) 12.2 10*3/uL 4.3-11.0 Blood erythrocytes automated count (number/volume) 3.42 10*6/uL 4.35-5.85 Venous blood hemoglobin measurement (mass/volume) 10.6 g/dL 11.5-16.0 Blood hematocrit (volume fraction) 34 % 35-52 Automated erythrocyte mean corpuscular volume 98 [ foz_us] 80-99 Automated erythrocyte mean corpuscular h emoglobin (mass per erythrocyte) 31 pg 25-34 Automated erythrocyte mean corpuscular h emoglobin concentration measurement (mass/volume) 32 g/dL 32-36 Automated erythrocyte distribution width ratio 13. 2 % 10.0- 14.5 Automated blood platelet count (count/volume) 171 10*3/uL 130-400 Automated blood platelet mean volume measurement 9.9 [foz_us] 7.4-10.4 Whole blood basic metabolic panel - 07/16 05/04 07:55 Serum or plasma sodium measurement (moles/volume) 145 mmol/L 135-145 Serum or plasma potassium measurement (moles/volume) 3.8 mmol/L 3.6-5.0 Serum or plasma chloride measurement (moles/volume) 112 mmol/L 98-107 Carbon dioxide 21 mmol/L 21-32 Serum or plasma anion gap determination (moles/volume) 12 mmol/L 5-14 Serum or plasma urea nitrogen measurement (mass/volume ) 16 mg/dL 7-18 Serum or plasma creatinine measurement (mass/volume) 1.22 mg/dL 0.60-1.30 Serum or plasma urea nitrogen/creatinine mass ratio 13 NRG Serum or plasma creatinine measurement w ith calculation of estimated glomerular filtration rate 45 NRG Serum or plasma glucose measurement (mass/volume) 131 mg/dL 70-105 Serum or plasma calcium measurement (mass/volume) 9.1 mg/dL 8.5-10.1 Cerebrospinal fluid cell count - 9 17:00 Cerebrospinal fluid appearance description CLEAR NRG Cerebrospinal fluid color identification COLORLESS NRG Cerebrospinal fluid leukocytes count (number/volume) 0 % 0-5 Cerebrospinal fluid erythrocytes count (number/volume) 0 % 0-0 Cerebrospinal fluid cell count on specimen from last t ube collected 4 NRG Cerebrospinal fluid glucose measurement (mass/volume) - 08/04/18 17:00 Cerebrospinal fluid glucose measurement (mass/volume) 70 mg/dL 50-80 Cerebrospinal fluid protein measurement (mass/volume) - 08/04/18 17:00 Cerebrospinal fluid protein measurement (mass/volume) 26 mg/dL 15-40 Gram stain microscopy - 08/04/18 17:00 Gram stain microscopy No WBC or bacteria observed NRG Bacterial cerebrospinal fluid culture - 08/04/18 17:00 Bacterial cerebrospinal fluid culture NG NRG Automated blood complete blood count (he mogram) panel - 08/05/18 05:25 Blood leukocytes automated count (number/volume) 9.2 10*3/uL 4.3-11.0 Blood erythrocytes automated count (number/volume) 3.12 10*6/uL 4.35-5.85 Venous blood hemoglobin measurement (mass/volume) 9.8 g/dL 11.5-16.0 Blood hematocrit (volume fraction) 30 % 35-52 Automated erythrocyte mean corpuscular volume 97 [ foz_us] 80-99 Automated erythrocyte mean corpuscular h emoglobin (mass per erythrocyte) 31 pg 25-34 Automated erythrocyte mean corpuscular h emoglobin concentration measurement (mass/volume) 33 g/dL 32-36 Automated erythrocyte distribution width ratio 13. 0 % 10.0- 14.5 Automated blood platelet count (count/volume) 193 10*3/uL 130-400 Automated blood platelet mean volume measurement 10.2 [foz_us] 7.4-10.4 Whole blood basic metabolic panel - 07/16 06/04 05:25 Serum or plasma sodium measurement (moles/volume) 145 mmol/L 135-145 Serum or plasma potassium measurement (moles/volume) 3.9 mmol/L 3.6-5.0 Serum or plasma chloride measurement (moles/volume) 111 mmol/L 98-107 Carbon dioxide 23 mmol/L 21-32 Serum or plasma anion gap determination (moles/volume) 11 mmol/L 5-14 Serum or plasma urea nitrogen measurement (mass/volume ) 11 mg/dL 7-18 Serum or plasma creatinine measurement (mass/volume) 1.08 mg/dL 0.60-1.30 Serum or plasma urea nitrogen/creatinine mass ratio 10 NRG Serum or plasma creatinine measurement w ith calculation of estimated glomerular filtration rate 52 NRG Serum or plasma glucose measurement (mass/volume) 102 mg/dL 70-105 Serum or plasma calcium measurement (mass/volume) 9.2 mg/dL 8.5-10.1 CULTURE, URINE - 08/16/18 12:08 CULTURE, URINE, ROUTINE SEE NOTE NRG PDM - PAIN MGMT (PROFILE 3 WITH CONFIRMA TION) - 09/26/18 17:22 Prescribed Drug 1 Lyrica(TM) NRG Creatinine 86.6 mg/dL > or = 20.0 pH 6.20 4.5 - 9.0 Oxidant NEGATIVE mcg/mL <200 Amphetamines NEGATIVE ng/mL <500 medMATCH Amphetamines CONSISTENT NRG Benzodiazepines NEGATIVE ng/mL <100 medMATCH Benzodiazepines CONSISTENT NRG Marijuana Metabolite NEGATIVE ng/mL <20 medMATCH Marijuana Metab CONSISTENT NRG Cocaine Metabolite NEGATIVE ng/mL <150 medMATCH Cocaine Metab CONSISTENT NRG Opiates NEGATIVE ng/mL <100 medMATCH Opiates CONSISTENT NRG Oxycodone NEGATIVE ng/mL <100 medMATCH Oxycodone CONSISTENT NRG COMMENT NRG CULTURE, URINE - 10/25/18 09:37 CULTURE, URINE, ROUTINE SEE NOTE NRG Complete blood count (CBC) with automate d white blood cell (WBC) differential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 11:30:00 Document Registration [id number] 06/10/2019 09:40:00 Document Registration [id number] 03/31/2019 13:00:00 Document Registration [id number] 01/13/2019 10:00:00 Document Registration [id number] 10/24/2018 19:20:00 Document Registration [id number] 09/26/2018 17:00:00 Document Registration [id number] 08/16/2018 11:00:00 Document Registration [id number] 03/29/2018 15:00:00 Document Registration [id number] 02/21/2018 14:40:00 Document Registration [id number] 01/24/2018 14:00:00 Document Registration [id number] 01/10/2018 18:00:00 Document Registration [id number] 12/12/2017 14:40:00 Document Registration [id number] 11/15/2017 16:00:00 Document Registration [id number] 07/05/2017 17:00:00 Document Registration [id number] 06/05/2017 11:00:00 Document Registration [id number] 04/19/2017 16:00:00 Document Registration [id number] 04/10/2017 16:20:00 Document Registration [id number] 02/23/2017 15:30:00 Document Registration [id number] 01/17/2017 14:00:00 Document Registration [id number] 01/11/2017 15:40:00 Document Registration
[2019-08-01 11:21] LABS: BILIRUBIN,TOTAL 0.3 MG/DL (0.1-1.0); CALCIUM 9.2 MG/DL (8.5-10.1); CREATININE SERUM 1.25 MG/DL (0.60-1.30); POTASSIUM 4.3 MMOL/L (3.6-5.0); TOTAL PROTEIN 6.9 GM/DL (6.4-8.2)
--- NOTE | 2019-08-01 11:29 | NUR ---
VANCOMYCIN DOSING SCR 1.25; ADJ BW 74 KG; CRCL ~ 56; BOLUS VANC 2 GM THEN VANC 15 MG/KG X 113 KG ~ 1750 MG Q24H CHECK TROUGH LEVEL BEFORE 3RD DOSE 08/02 AT 0900 HOLD DOSE AND CONTACT PHARMACY IF LEVEL IS GREATER THAN 20 OR LESS THAN 10 Addendum: 08/03/19 at 1027 by REBECCA [facility] 08/02 Vanco trough is 21.3. Will repeat trough 08/02 @ 1430, if 20 or less, will restart Vancomycin @ 1500mg every 24 hours.
[2019-08-01 12:00] VITALS: BP 107/54
[2019-08-01] MEDS ORDERED: CEPH500C PO (12:52)
[2019-08-01] MEDS ORDERED: TRZ50T PO (12:52)
[2019-08-01] MEDS ORDERED: DICL100G31 TOP (12:52)
[2019-08-01] MEDS ORDERED: ROPI5TAB3 PO (12:52)
[2019-08-01] MEDS ORDERED: MONT10TA26 PO (12:52)
[2019-08-01] MEDS ORDERED: EZET10TA49 PO (12:52)
[2019-08-01] MEDS ORDERED: BREX2TAB PO (12:52)
[2019-08-01] MEDS ORDERED: OXYC-471 PO (12:52)
[2019-08-01] MEDS ORDERED: FLUT1BLS PO (12:52)
[2019-08-01] MEDS ORDERED: SUCR1TAB PO (12:52)
[2019-08-01] MEDS ORDERED: LISI-552 PO (12:52)
[2019-08-01] MEDS ORDERED: NYST1000 PO (12:54)
[2019-08-01] MEDS ORDERED: CHOL20003 PO (12:57)
--- NOTE | 2019-08-01 13:05 | History & Physical ---
HPI History of Present Illness: 58 yo F that was seen at [facility] and was a direct admission for Right periorbital cellulitis. Patient was seen yesterday and started on keflex. Her swelling worsened overnight and she presented again to [facility] and it was determined that she needed IV antibiotics. She states that she noticed a scratch on her face about 5 days ago and then the swelling started about 3 days ago. Today the swelling and pain in her eye has got worse. Denies any blurry vision but states that she can see her swollen eye in her line of vision. She has not missed taking in medications and is other estrada doing well. Source: patient Exam Limitations: no limitations Date seen by provider: Aug 01, 2019 Time Seen by Provider: 10:30 Attending Physician Ann Marie Marshall MD [facility] [place] Consult Date of Admission Aug 01, 2019 at 09:00 Home Medications Home Medications Reviewed patient Home Medication Reconciliation performed by pharmacy medication reconciliations ground source heat pump technician and/or nursing. Patients Allergies have been reviewed. Allergies Coded Allergies: NSAIDS (Non-Steroidal Anti-Inflamma (Verified Allergy, Unknown, 08/03/18) PATIENT REPORTED THAT SHE HAS STAGE 4 RENAL DISEASE Sulfa (Sulfonamide Antibiotics) (Verified Allergy, Unknown, 08/03/18) diltiazem (Unverified Allergy, Unknown, 10/10/17) ZPB-Otynxy-Tdkrvk Hx Patient Social History Living Status: Lives at home with Alcohol Use: Denies Use Recreational Drug Use: No Smoking Status: Never a Smoker 2nd Hand Smoke Exposure: Yes Recent Foreign Travel: No Contact w/other who traveled: No Recent Hopitalizations: No Recent Infectious Disease Expo: No Physical Abuse Screen: No Sexual Abuse: No Immunizations Up To Date Tetanus Booster (TDap): Unknown Date of Influenza Vaccine: Jan 14, 2017 Past Medical History PMHx: CKD Fibromyalgia Chronic pain Seasonal allergic rhinitis Anemia of CKD Mixed stress and urge incontinence Hypothyroidism HTN SurgHx: Cholecystectomy Appendectomy Hysterectomy for fibroids Median neuroplasty and bilateral carpal tunnel syndrome Esophageal surgery for Zenker diverticulum Bladder surgery Bladder neurostimulator placement Retinal repair Cataract surgery Family Medical History Family History: Arthritis 19 FATHER 19 MOTHER Asthma 19 FATHER 19 MOTHER Cardiovascular disease 19 FATHER 19 MOTHER Cataracts 19 FATHER 19 MOTHER Completed stroke 19 FATHER 19 MOTHER Congenital heart disease Coronary thrombosis 19 MOTHER Deafness or hearing loss 19 FATHER 19 MOTHER Diabetes mellitus 19 FATHER 19 MOTHER Headache disorder 19 MOTHER Hypercholesterolemia 19 MOTHER Hypertension 19 FATHER 19 MOTHER Kidney disease 19 MOTHER Myocardial infarction 19 FATHER 19 MOTHER Neoplasm 19 MOTHER (SKIN CA) Thyroid disease 19 MOTHER Visual disorder 19 MOTHER Review of Systems (CHC) Constitutional: No chills; fever EENTM: eye pain (Right eye); No vision loss Respiratory: no symptoms reported; No cough, No dyspnea on exertion, No short of breath Cardiovascular: no symptoms reported; No chest pain, No edema, No palpitations Gastrointestinal: no symptoms reported; No abdominal pain, No constipation, No diarrhea, No nausea, No vomiting Genitourinary: no symptoms reported; No dysuria, No frequency, No hematuria Musculoskeletal: joint pain (chronic) Skin: other (Scratch on her right protestant with induration and no fluctuance or drainage) Psychiatric/Neurological: Headache, Numbness Reviewed Test Results Reviewed Test Results Lab Laboratory Tests Test 08/01/19 10:43 08/01/19 10:50 Range/Units Glucometer 106 70-110 MG/DL White Blood Count 10.6 4.3-11.0 10^3/uL Red Blood Count 3.52 L 4.35-5.85 10^6/uL Hemoglobin 10.9 L 11.5-16.0 G/DL Hematocrit 33 L 35-52 % Mean Corpuscular Volume 93 80-99 FL Mean Corpuscular Hemoglobin 31 25-34 PG Mean Corpuscular Hemoglobin Concent 33 32-36 G/DL Red Cell Distribution Width 13.0 10.0-14.5 % Platelet Count 237 130-400 10^3/uL Mean Platelet Volume 10.2 7.4-10.4 FL Neutrophils (%) (Auto) 68 42-75 % Lymphocytes (%) (Auto) 19 12-44 % Monocytes (%) (Auto) 9 0-12 % Eosinophils (%) (Auto) 3 0-10 % Basophils (%) (Auto) 1 0-10 % Neutrophils # (Auto) 7.3 1.8-7.8 X 10^3 Lymphocytes # (Auto) 2.1 1.0-4.0 X 10^3 Monocytes # (Auto) 0.9 0.0-1.0 X 10^3 Eosinophils # (Auto) 0.3 0.0-0.3 10^3/uL Basophils # (Auto) 0.1 0.0-0.1 10^3/uL Sodium Level 140 135-145 MMOL/L Potassium Level 4.3 3.6-5.0 MMOL/L Chloride Level 106 98-107 MMOL/L Carbon Dioxide Level 23 21-32 MMOL/L Anion Gap 11 5-14 MMOL/L Blood Urea Nitrogen 19 H 7-18 MG/DL Creatinine 1.25 0.60-1.30 MG/DL Estimat Glomerular Filtration Rate 44 BUN/Creatinine Ratio 15 Glucose Level 104 70-105 MG/DL Lactic Acid Level 0.62 0.50-2.00 MMOL/L Calcium Level 9.2 8.5-10.1 MG/DL Corrected Calcium 9.2 8.5-10.1 MG/DL Total Bilirubin 0.3 0.1-1.0 MG/DL Aspartate Amino Transf (AST/SGOT) 13 5-34 U/L Alanine Aminotransferase (ALT/SGPT) 9 0-55 U/L Alkaline Phosphatase 112 40-136 U/L Total Protein 6.9 6.4-8.2 GM/DL Albumin 4.0 3.2-4.5 GM/DL Physical Exam-([facility]) Physical Exam Vital Signs VS - Last 72 Hours, by Label 08/01/19 08/01/19 08/01/19 08/01/19 09:20 09:20 10:01 12:00 Temp 37.3 37.3 37.2 Pulse 76 76 82 Resp 18 18 16 B/P (MAP) 124/64 (84) 124/64 107/54 (71) Pulse Ox 93 93 92 O2 Delivery Room Air Room Air Room Air Room Air Capillary Refill : Less Than 3 Seconds General Appearance: WD/WN, no apparent distress HEENT: PERRL/EOMI, other (Right upper and lower eyelids with edema, induration and ttp right protestant) Neck: non-tender, full range of motion, supple Respiratory: chest non-tender, lungs clear, normal breath sounds, no respiratory distress, no accessory muscle use Cardiovascular: normal peripheral pulses, regular rate, rhythm, no edema, no murmur Gastrointestinal: normal bowel sounds, non tender, soft Extremities: normal range of motion, non-tender, normal inspection, no pedal edema, no calf tenderness, normal capillary refill Neurologic/Psychiatric: senior svp II-XII nml as tested, no motor/sensory deficits, alert, normal mood/affect, oriented x 3 Lymphatic: no adenopathy Assessment/Plan Assessment/Plan Admission Status: Inpatient Order (span 2 midnights) Reason for Inpatient Admission: Patient with multiple comorbidities and requiring IV antibiotics (1) Sepsis Status: Resolved Assessment & Plan: - Started on IV Zosyn/Vanc, LA normal, Fever resolved, Completed IVF hydration (2) Cellulitis, periorbital Status: Acute Assessment & Plan: - CT scan w/o abscess, warm compresses Qualifiers: Qualified Codes: L03.213 - Periorbital cellulitis (3) CKD (chronic kidney disease) Status: Chronic Assessment & Plan: - At baseline Cr, monitor closely on Vanc (4) Hypothyroidism Status: Chronic Qualifiers: Qualified Codes: E03.9 - Hypothyroidism, unspecified (5) Restless leg syndrome Status: Chronic (6) HTN (hypertension) Status: Chronic (7) Fibromyalgia Status: Chronic (8) Chronic pain Status: Chronic (9) DVT prophylaxis Status: Acute Assessment & Plan: Lovenox Clinical Quality Measures DVT/VTE Risk/Contraindication: Risk Factor Score Per Nursin RFS Level Per Nursing on Admit: 4+=Very High ANN MARIE MARSHALL MD Aug 01, 2019 13:05
[2019-08-01] MEDS: oxyCODONE/APAP 5/325MG (PERCOCET 5) TABLET PO PRN ×2 (13:06→18:41)
[2019-08-01] MEDS: ENOXAPARIN 40 MG/0.4 ML (LOVENOX) SYR SQ SCH (13:06)
[2019-08-01] MEDS ORDERED: PROP1.5D OU (13:10)
[2019-08-01] MEDS ORDERED: ACET-2267 PO (13:10)
[2019-08-01] MEDS ORDERED: METH479P4 PO (13:10)
--- NOTE | 2019-08-01 13:15 | NUR ---
SPOKE WITH THE PT (SHE HAD A VERY DETAILED MED LIST) AND WENT THRU THE EXT MED HISTORY TO COMPLETE THE MED REC ALL MEDS WERE LISTED ON THE EXT MED HISTORY OTC MEDS: SYSTANE TYLENOL OMEGA 3 VIT D CITRUCEL FERROUS SULFATE ASPIRIN
[2019-08-01] MEDS: NS IV 1000 ML 1,000 ML IV SCH (13:30)
[2019-08-01 16:30] VITALS: BP 121/73
[2019-08-01] MEDS: PIPERACILLIN/TAZOBACTAM (BULK) 4.5 GM in NS (IVPB) 100 ML IV SCH (18:41)
[2019-08-01] MEDS ORDERED: PROPYLENE GLYCOL OU PRN (19:00)
[2019-08-01] MEDS ORDERED: RT-ALBUTEROL SULF 2.5 MG/3 ML PRE-MIX VIAL IH PRN (19:00)
[2019-08-01] MEDS ORDERED: FLUTICASONE NASAL SPRAY (FLONASE) 16 GM BTL NS PRN (19:00)
[2019-08-01] MEDS ORDERED: NYSTATIN ORAL SUSP 5 ML UDC PO PRN (19:00)
[2019-08-01] MEDS ORDERED: ARTIFICAL TEARS 0.4 ML UNIT DOSE (REFRESH PLUS) OU PRN (19:15)
[2019-08-01 19:55] VITALS: BP 110/71
[2019-08-01] MEDS: ACETAMINOPHEN 500 MG TAB (TYLENOL) PO SCH (20:13)
[2019-08-01] MEDS: GEMFIBROZIL 600 MG (LOPID) TAB PO SCH (20:13)
[2019-08-01] MEDS: traZODone 50 MG (DESYREL) TAB PO SCH (20:13)
[2019-08-01] MEDS: rOPINIRole 5 MG TAB (REQUIP) PO SCH (20:13)
[2019-08-01] MEDS: SUCRALFATE 1 GM (CARAFATE) TAB PO SCH (20:13)
[2019-08-01] MEDS: MONTELUKAST 10 MG (SINGULAIR) TAB PO SCH (20:13)
[2019-08-01] MEDS: PREGABALIN 150 MG (LYRICA) CAPSULE PO SCH (20:13)
[2019-08-01] MEDS: DICLOFENAC 1% GEL 100 GM (VOLTAREN) TUBE TOP SCH (20:14)
[2019-08-01] MEDS ORDERED: IPRATROPIUM BROMIDE NS SCH (21:00)
--- NOTE | 2019-08-01 22:38 | CONSULTATION REPORT ---
DATE OF SERVICE: 08/01/2019 DATE OF PROCEDURE: 08/01/2019. ADMITTING PHYSICIAN: Dr. Hiral Marshall. 1 HISTORY OF PRESENT ILLNESS: The patient is a 58-year-old female who was admitted for pain, swelling and fevers along the right preauricular region as well as the surrounding swelling in the periorbital region. Since being admitted and placed on IV antibiotics this has improved. She reports that this has never happened before in the past. Upon examination, she does have an area of hardness in the preauricular region consistent with an abscess. She does have an extensive past medical history and reports that she did have a shunt placed in her right inner ear to cerebral spinal fluid due to Meniere's disease. We will review the CT scan to see if there is any correlation of communication with this. PAST MEDICAL HISTORY: Hypertension, hypercholesterolemia, Meniere's disease, degenerative joint disease, fibromyalgia, hypothyroid, stage III chronic kidney disease. PAST SURGICAL HISTORY: Open cholecystectomy, open appendectomy, section, left total knee arthroplasty, bladder stimulator placement, neurostimulator placement and Zenker's diverticulectomy. ALLERGIES: CARDIZEM AND SULFA. MEDICATIONS: See medication reconciliation. SOCIAL HISTORY: Negative smoke, negative alcohol. FAMILY HISTORY: Mother and father, hypertension, hypercholesterolemia. REVIEW OF SYSTEMS: Well-nourished female currently in no acute distress. She is not experiencing any shortness of breath or difficulty breathing. No chest pain, palpitations, diaphoresis. No nausea, vomiting. With intermittent fevers starting 3 days ago with pain, redness and swelling as well as a right periorbital edema. No sinus tracts openings or any purulent drainage. No recent inadvertent weight loss. All other review of systems negative. PHYSICAL EXAMINATION: CHEST: Clear. Good breath sounds bilaterally. HEART: Regular, no murmurs. EXTREMITIES: No lower extremity edema, negative Homans sign. HEENT: No scleral icterus. NECK: No cervical lymphadenopathy. She does have a hard, well circumscribed abscess in the right preauricular region. She does not have any periorbital edema and does not have any visual changes. ABDOMEN: Soft, nontender and nondistended. SKIN: Warm, dry. ASSESSMENT AND PLAN: A 58-year-old female with right preauricular abscess. We will review the CT scan and then proceed with scheduling her for an incision and drainage of the abscess. Since being admitted and started on IV antibiotics she has had a significant response and we will continue with that for now. Job ID: [id number] DocumentID: [id number] Dictated Date: 08/01/2019 21:40:32 Sales Incentive Analyst Date: 08/01/2019 22:38:18 Dictated By: KAILYN CONSTANTINO MD
[2019-08-02] VITALS (7 sets, daily range): BP systolic 100–129; BP diastolic 48–80
[2019-08-02] MEDS: NS IV 1000 ML 1,000 ML IV SCH ×2 (00:28→13:59)
[2019-08-02] MEDS: ENOXAPARIN 40 MG/0.4 ML (LOVENOX) SYR SQ SCH ×3 (00:28→23:46)
[2019-08-02] MEDS: oxyCODONE/APAP 5/325MG (PERCOCET 5) TABLET PO PRN ×3 (00:32→20:36)
[2019-08-02] MEDS: PIPERACILLIN/TAZOBACTAM (BULK) 4.5 GM in NS (IVPB) 100 ML IV SCH ×3 (02:43→18:31)
[2019-08-02 05:01] LABS: BASOPHILS # (AUTO) 0.1 10^3/uL (0.0-0.1); BASOPHILS % (AUTO) 1 % (0-10); EOSINOPHILS # (AUTO) 0.4 10^3/uL (0.0-0.3); EOSINOPHILS % (AUTO) 6 % (0-10); HEMATOCRIT 31 % (35-52); HEMOGLOBIN 10.1 G/DL (11.5-16.0); LYMPHOCYTES # (AUTO) 1.9 X 10^3 (1.0-4.0); LYMPHOCYTES % (AUTO) 25 % (12-44); MEAN CORPUSCULAR HEMOGLOBIN 31 PG (25-34); MEAN CORPUSCULAR HGB CONC 32 G/DL (32-36); MEAN CORPUSCULAR VOLUME 95 FL (80-99); MEAN PLATELET VOLUME 10.8 FL (7.4-10.4); MONOCYTES # (AUTO) 0.8 X 10^3 (0.0-1.0); MONOCYTES % (AUTO) 10 % (0-12); NEUTROPHILS # (AUTO) 4.3 X 10^3 (1.8-7.8); NEUTROPHILS % (AUTO) 58 % (42-75); PLATELET COUNT 213 10^3/uL (130-400); RED CELL DISTRIBUTION WIDTH 13.1 % (10.0-14.5); WHITE BLOOD COUNT 7.4 10^3/uL (4.3-11.0)
[2019-08-02 05:25] LABS: ALBUMIN 3.7 GM/DL (3.2-4.5); BILIRUBIN,TOTAL 0.3 MG/DL (0.1-1.0); CALCIUM 8.8 MG/DL (8.5-10.1); CREATININE SERUM 1.77 MG/DL (0.60-1.30); POTASSIUM 4.4 MMOL/L (3.6-5.0); TOTAL PROTEIN 6.5 GM/DL (6.4-8.2)
[2019-08-02] MEDS: LEVOTHYROXINE 150 MCG (LEVOTHROID) TAB PO SCH (06:21)
[2019-08-02] MEDS: ADVAIR HFA 115/21 MCG INHALER 8 GM IH SCH (07:15)
[2019-08-02] MEDS: FERROUS SULF 325 MG (IRON) TAB PO SCH ×3 (08:39→18:27)
[2019-08-02] MEDS ORDERED: NON-FORMULARY MEDICATION 1 EA EA (Brexpiprazole (Rexulti) 2 MG) PO SCH (09:00)
[2019-08-02] MEDS ORDERED: NON-FORMULARY MEDICATION 1 EA EA (Cholecalciferol (Vitamin D3) (Vitamin D3) 50 MCG) PO SCH (09:00)
[2019-08-02] MEDS ORDERED: NON-FORMULARY MEDICATION 1 EA EA (Duloxetine HCl 60 MG) PO SCH (09:00)
[2019-08-02] MEDS ORDERED: NON-FORMULARY MEDICATION 1 EA EA (Fluticasone/Vilanterol (Breo Ellipta 200-25 Mcg INH) 1 P PO SCH (09:00)
[2019-08-02] MEDS ORDERED: VANCOMYCIN INJECTION 1,750 MG in NS IV 500 ML 500 ML IV SCH (10:00)
[2019-08-02] MEDS: meTOproloL SUCCINATE 50 MG (TOPROL XL) TAB PO SCH (10:13)
[2019-08-02] MEDS: DICLOFENAC 1% GEL 100 GM (VOLTAREN) TUBE TOP SCH ×2 (10:13→20:32)
[2019-08-02] MEDS: GEMFIBROZIL 600 MG (LOPID) TAB PO SCH ×2 (10:13→20:31)
[2019-08-02] MEDS: PANTOPRAZOLE 40 MG (PROTONIX) TAB PO SCH (10:14)
[2019-08-02] MEDS: SUCRALFATE 1 GM (CARAFATE) TAB PO SCH ×2 (10:14→20:31)
[2019-08-02] MEDS: eZETimibe 10 MG (ZETIA) TABLET PO SCH (10:14)
[2019-08-02] MEDS: lisINopril 20 MG (PRINIVIL) TABLET PO SCH (10:14)
[2019-08-02] MEDS: ASPIRIN 325 MG (5 GR) TABLET PO SCH (10:14)
[2019-08-02] MEDS: PREGABALIN 150 MG (LYRICA) CAPSULE PO SCH ×3 (10:15→20:31)
[2019-08-02] MEDS: ACETAMINOPHEN 500 MG TAB (TYLENOL) PO SCH ×3 (10:15→20:31)
[2019-08-02] MEDS: VITAMIN D3 25 MCG (1,000 UNITS) TABLET PO SCH (10:15)
[2019-08-02] MEDS: DULoxetine 30 MG (CYMBALTA) CAP PO SCH (10:15)
[2019-08-02] MEDS: METHYLCELLULOSE (CITRUCEL) 500 MG CAPLET PO SCH (10:17)
--- NOTE | 2019-08-02 11:24 | Progress Note ---
Subjective Date Seen by a Provider: Aug 02, 2019 Time Seen by a Provider: 10:00 Subjective/Events-last exam doing ok. decreased diffuse right orbital edema/erythema however worsened pain and fluctuance consistent with evolving abscess. no systemic fever/chills. Focused Exam Lactate Level 08/01/19 10:50: Lactic Acid Level 0.62 Objective Exam Vital Signs Date Time Temp Pulse Resp B/P (MAP) Pulse Ox O2 Delivery O2 Flow Rate FiO2 08/02/19 10:50 36.6 08/02/19 10:50 36.6 08/02/19 08:02 Room Air 08/02/19 07:55 36.6 61 18 102/66 (78) 95 Room Air 08/02/19 07:15 92 Room Air 08/02/19 07:00 59 08/02/19 04:10 36.5 53 18 100/62 (75) 96 Room Air 08/02/19 01:00 68 08/02/19 00:00 36.9 67 21 128/80 (96) 95 Room Air 08/01/19 20:00 Room Air 08/01/19 19:55 37.0 70 20 110/71 (84) 92 Room Air 08/01/19 19:00 65 08/01/19 16:30 37.4 67 18 121/73 (89) 95 Room Air 08/01/19 12:00 37.2 82 16 107/54 (71) 92 Room Air 08/01/19 11:36 70 I & O 08/02/19 07:00 Intake Total 2100 ml Output Total 450 ml Balance 1650 ml Capillary Refill : Less Than 3 SecondsLess Than 3 Seconds General Appearance: No Apparent Distress HEENT: PERRL/EOMI, Other (redness/fluctuance pain right preauricular region) Neck: Full Range of Motion Respiratory: Chest Non Tender, Lungs Clear, Normal Breath Sounds Cardiovascular: Regular Rate, Rhythm Gastrointestinal: normal bowel sounds, non tender, soft Extremity: Normal Capillary Refill, Normal Inspection Neurologic/Psychiatric: Alert, Oriented x3 Skin: Normal Color Lymphatic: No Adenopathy Results Lab Laboratory Tests 08/01/19 16:38: Glucometer 91 08/01/19 20:08: Glucometer 112H 08/02/19 04:36: White Blood Count 7.4, Red Blood Count 3.29L, Hemoglobin 10.1L, Hematocrit 31L, Mean Corpuscular Volume 95, Mean Corpuscular Hemoglobin 31, Mean Corpuscular Hemoglobin Concent 32, Red Cell Distribution Width 13.1, Platelet Count 213, Mean Platelet Volume 10.8H, Neutrophils (%) (Auto) 58, Lymphocytes (%) (Auto) 25, Monocytes (%) (Auto) 10, Eosinophils (%) (Auto) 6, Basophils (%) (Auto) 1, Neutrophils # (Auto) 4.3, Lymphocytes # (Auto) 1.9, Monocytes # (Auto) 0.8, Eosinophils # (Auto) 0.4H, Basophils # (Auto) 0.1, Sodium Level 140, Potassium Level 4.4, Chloride Level 107, Carbon Dioxide Level 19L, Anion Gap 14, Blood Urea Nitrogen 26H, Creatinine 1.77H, Estimat Glomerular Filtration Rate 29, BUN/Creatinine Ratio 15, Glucose Level 104, Calcium Level 8.8, Corrected Calcium 9.0, Total Bilirubin 0.3, Aspartate Amino Transf (AST/SGOT) 13, Alanine Aminotransferase (ALT/SGPT) 9, Alkaline Phosphatase 99, Total Protein 6.5, Albumin 3.7 Assessment/Plan Assessment/Plan Assess & Plan/Chief Complaint right preauricular facial abscess. will plan for I&D under [facility] in am. Clinical Quality Measures DVT/VTE Risk/Contraindication: Risk Factor Score Per Nursin RFS Level Per Nursing on Admit: 4+=Very High KAILYN CONSTANTINO MD Aug 02, 2019 11:24
--- NOTE | 2019-08-02 11:25 | Progress Note-Pre Operative ---
Pre-Operative Progress Note H&P Reviewed The H&P was reviewed, patient examined and no changes noted. Date Seen by Provider: Aug 02, 2019 Time Seen by Provider: 11:00 Date H&P Reviewed: Aug 02, 2019 Time H&P Reviewed: 11:00 Pre-Operative Diagnosis: right facial preauricular abscess KAILYN CONSTANTINO MD Aug 02, 2019 11:25
--- NOTE | 2019-08-02 12:32 | Progress Note - Hospitalist ---
Subjective HPI/CC On Admission Date Seen by Provider: Aug 02, 2019 Time Seen by Provider: 13:00 Subjective/Events-last exam Labs stable Patient feels better Dr Mireles consulted and will perform I&D No pain is reported IVF maintained for now Review of Systems General: Fatigue Focused Exam Lactate Level 08/01/19 10:50: Lactic Acid Level 0.62 Objective Exam Vital Signs Vital Signs Date Time Temp Pulse Resp B/P (MAP) Pulse Ox O2 Delivery O2 Flow Rate FiO2 08/02/19 16:58 129/70 (89) 08/02/19 15:48 36.7 70 18 91 Room Air Capillary Refill : Less Than 3 SecondsLess Than 3 Seconds General Appearance: No Apparent Distress, WD/WN HEENT: Other (right sabianist region abscess with fluctuance) Respiratory: Chest Non Tender, Lungs Clear, Normal Breath Sounds, No Accessory Muscle Use, No Respiratory Distress Cardiovascular: Regular Rate, Rhythm, No Edema, No Gallop, No JVD, No Murmur, Normal Peripheral Pulses Results/Procedures Lab Laboratory Tests 08/02/19 04:36 Patient resulted labs reviewed. Assessment/Plan Assessment and Plan Assess & Plan/Chief Complaint (1) Sepsis Status: Resolved Assessment & Plan: - Started on IV Zosyn/Vanc, LA normal, Fever resolved, Completed IVF hydration (2) Cellulitis, periorbital Status: Acute Assessment & Plan: - CT scan w/o abscess, warm compresses- Dr Mireles will perform I&D tomorrow under [facility] Qualifiers: Qualified Codes: L03.213 - Periorbital cellulitis (3) CKD (chronic kidney disease) Status: Chronic Assessment & Plan: - At baseline Cr, monitor closely on Vanc (4) Hypothyroidism Status: Chronic Qualifiers: Qualified Codes: E03.9 - Hypothyroidism, unspecified (5) Restless leg syndrome Status: Chronic (6) HTN (hypertension) Status: Chronic (7) Fibromyalgia Status: Chronic (8) Chronic pain Status: Chronic (9) DVT prophylaxis Status: Acute Assessment & Plan: Lovenox Clinical Quality Measures DVT/VTE Risk/Contraindication: Risk Factor Score Per Nursin RFS Level Per Nursing on Admit: 4+=Very High SURAJ LAND DO Aug 02, 2019 12:32
[2019-08-02] MEDS: rOPINIRole 5 MG TAB (REQUIP) PO SCH ×2 (17:00→20:31)
[2019-08-02] MEDS: traZODone 50 MG (DESYREL) TAB PO SCH (20:31)
[2019-08-02] MEDS: MONTELUKAST 10 MG (SINGULAIR) TAB PO SCH (20:31)
[2019-08-03] VITALS (14 sets, daily range): BP systolic 95–154; BP diastolic 60–77
[2019-08-03] MEDS: NS IV 1000 ML 1,000 ML IV SCH ×2 (01:28→16:30)
[2019-08-03] MEDS: PIPERACILLIN/TAZOBACTAM (BULK) 4.5 GM in NS (IVPB) 100 ML IV SCH ×3 (04:23→18:15)
[2019-08-03] MEDS: LEVOTHYROXINE 150 MCG (LEVOTHROID) TAB PO SCH (05:29)
[2019-08-03 06:17] LABS: BASOPHILS % (AUTO) 1 % (0-10); EOSINOPHILS # (AUTO) 0.4 10^3/uL (0.0-0.3); EOSINOPHILS % (AUTO) 7 % (0-10); HEMATOCRIT 31 % (35-52); HEMOGLOBIN 9.8 G/DL (11.5-16.0); LYMPHOCYTES # (AUTO) 1.3 X 10^3 (1.0-4.0); LYMPHOCYTES % (AUTO) 23 % (12-44); MEAN CORPUSCULAR HEMOGLOBIN 30 PG (25-34); MEAN CORPUSCULAR HGB CONC 32 G/DL (32-36); MEAN CORPUSCULAR VOLUME 94 FL (80-99); MEAN PLATELET VOLUME 10.6 FL (7.4-10.4); MONOCYTES # (AUTO) 0.6 X 10^3 (0.0-1.0); MONOCYTES % (AUTO) 11 % (0-12); NEUTROPHILS # (AUTO) 3.3 X 10^3 (1.8-7.8); NEUTROPHILS % (AUTO) 58 % (42-75); PLATELET COUNT 191 10^3/uL (130-400); WHITE BLOOD COUNT 5.6 10^3/uL (4.3-11.0)
[2019-08-03 06:27] LABS: ALBUMIN 3.6 GM/DL (3.2-4.5); POTASSIUM 4.1 MMOL/L (3.6-5.0)
[2019-08-03 06:29] LABS: CALCIUM 9.1 MG/DL (8.5-10.1)
[2019-08-03 06:30] LABS: TOTAL PROTEIN 6.4 GM/DL (6.4-8.2)
[2019-08-03 06:32] LABS: BILIRUBIN,TOTAL 0.3 MG/DL (0.1-1.0)
[2019-08-03 06:33] LABS: CREATININE SERUM 1.45 MG/DL (0.60-1.30)
[2019-08-03] MEDS: ADVAIR HFA 115/21 MCG INHALER 8 GM IH SCH (07:15)
[2019-08-03] MEDS: FERROUS SULF 325 MG (IRON) TAB PO SCH ×3 (08:00→18:00)
[2019-08-03] MEDS: DICLOFENAC 1% GEL 100 GM (VOLTAREN) TUBE TOP SCH ×2 (08:13→20:30)
[2019-08-03] MEDS: ASPIRIN 325 MG (5 GR) TABLET PO SCH (09:00)
[2019-08-03] MEDS ORDERED: TROUGH ORDER-PHARMACY XX NR ×2 (09:00→14:30)
[2019-08-03] MEDS: SUCRALFATE 1 GM (CARAFATE) TAB PO SCH ×2 (09:00→20:28)
[2019-08-03] MEDS: GEMFIBROZIL 600 MG (LOPID) TAB PO SCH ×2 (09:00→20:28)
[2019-08-03] MEDS: METHYLCELLULOSE (CITRUCEL) 500 MG CAPLET PO SCH (09:00)
[2019-08-03] MEDS: lisINopril 20 MG (PRINIVIL) TABLET PO SCH (09:00)
[2019-08-03] MEDS: meTOproloL SUCCINATE 50 MG (TOPROL XL) TAB PO SCH (09:00)
[2019-08-03] MEDS: eZETimibe 10 MG (ZETIA) TABLET PO SCH (09:00)
[2019-08-03] MEDS: ACETAMINOPHEN 500 MG TAB (TYLENOL) PO SCH ×3 (09:00→20:28)
[2019-08-03] MEDS: VITAMIN D3 25 MCG (1,000 UNITS) TABLET PO SCH (09:00)
[2019-08-03] MEDS: DULoxetine 30 MG (CYMBALTA) CAP PO SCH (09:00)
[2019-08-03] MEDS: PANTOPRAZOLE 40 MG (PROTONIX) TAB PO SCH (09:00)
[2019-08-03] MEDS: PREGABALIN 150 MG (LYRICA) CAPSULE PO SCH ×3 (09:00→20:28)
--- NOTE | 2019-08-03 09:15 | NUR ---
PT TAKEN DOWN TO PREOP
[2019-08-03] MEDS ORDERED: SCOPOLAMINE 1.5 MG (TRANSDERM-SCOP) PATCH ONE (09:17)
[2019-08-03] MEDS ORDERED: FAMOTIDINE 20MG/2ML IV (PEPCID) ONE (09:18)
[2019-08-03] MEDS ORDERED: LIDOCAINE/EPI 1%-1:100,000 (XYLOCAINE) 20ML ONE (09:23)
[2019-08-03] MEDS ORDERED: fentaNYL INJECTION 100 MCG/2 ML AMP ONE (09:27)
[2019-08-03] MEDS ORDERED: MIDAZOLAM 2 MG/2 ML (VERSED) VIAL ONE (09:28)
[2019-08-03] MEDS ORDERED: proPOfol 200 MG/20 ML (DIPRIVAN) VIAL IV ONE (10:04)
[2019-08-03] MEDS ORDERED: ONDANSETRON 4 MG/2 ML (SDV) Z0FRAN ONE ×2 (10:09→10:15)
[2019-08-03] MEDS ORDERED: LIDOCAINE PF 2% 5 ML (XYLOCAINE) VIAL ONE (10:11)
[2019-08-03] MEDS ORDERED: morphine INJ 10 MG/ML 1ML (SYR OR VIAL) ONE (10:14)
--- NOTE | 2019-08-03 10:22 | Progress Note-Post Operative ---
Post-Operative Progess Note Surgeon (s)/Director Business Development (s) Surgeon KAILYN CONSTANTINO MD Director Business Development: none Pre-Operative Diagnosis right facial preauricular abscess Post-Operative Diagnosis same(complex 3x3cm) Procedure & Operative Findings Date of Procedure 08/03/19 Procedure Performed/Findings incision and drainage complex right facial abscess. Anesthesia Type general LMA Estimated Blood Loss Estimated blood loss (mL): minimal Specimens/Packing Specimens Removed c&s abscess KAILYN CONSTANTINO MD Aug 03, 2019 10:22
[2019-08-03] MEDS ORDERED: morphine INJ 10 MG/ML 1ML (SYR OR VIAL) IVP ONE (10:45)
[2019-08-03] MEDS ORDERED: ONDANSETRON 4 MG/2 ML (SDV) Z0FRAN IVP PRN (10:45)
[2019-08-03] MEDS ORDERED: LACTATED RINGERS 1,000 ML IV PRN (11:15)
--- NOTE | 2019-08-03 11:20 | NUR ---
PT BACK TO FLOOR --BEDSIDE REPORT FROM [facility] SWORDFISH -- TELEMETRY REAPPLIED BY RECOVER RN -- AND PT SMITHA --- [facility]ER SWORDFISH APPLIED O2 AT 2L/ NC -- PT RESTING COMFORTABLY -- DSG TO R SIDE OF FACE D/I WITH ICE PACK
--- NOTE | 2019-08-03 11:28 | Progress Note - Hospitalist ---
Subjective HPI/CC On Admission Date Seen by Provider: Aug 03, 2019 Time Seen by Provider: 11:00 Subjective/Events-last exam Patient just arrived back from recovery after I&D right facial abscess No pain is reported Checked meds and labs Reviewed med list Review of Systems General: Fatigue HEENT: Head Aches Focused Exam Lactate Level 08/01/19 10:50: Lactic Acid Level 0.62 Objective Exam Vital Signs Vital Signs Date Time Temp Pulse Resp B/P (MAP) Pulse Ox O2 Delivery O2 Flow Rate FiO2 08/03/19 14:35 36.8 08/03/19 12:05 70 08/03/19 12:03 18 151/68 (95) 98 Room Air 08/03/19 11:20 2 Capillary Refill : Less Than 3 SecondsLess Than 3 Seconds General Appearance: No Apparent Distress, WD/WN, Chronically ill Respiratory: Chest Non Tender, Lungs Clear, Normal Breath Sounds, No Accessory Muscle Use, No Respiratory Distress Cardiovascular: Regular Rate, Rhythm, No Edema, No Gallop, No JVD, No Murmur, Normal Peripheral Pulses Neurologic/Psychiatric: Alert, Oriented x3, No Motor/Sensory Deficits, Normal Mood/Affect Results/Procedures Lab Laboratory Tests 08/03/19 05:56 Patient resulted labs reviewed. Assessment/Plan Assessment and Plan Assess & Plan/Chief Complaint (1) Sepsis Status: Resolved Assessment & Plan: - Started on IV Zosyn/Vanc, LA normal, Fever resolved, Completed IVF hydration (2) Cellulitis, periorbital Status: Acute Assessment & Plan: - CT scan w/o abscess, warm compresses- Dr Mireles performed I&D today under [facility]- uncomplicated Qualifiers: Qualified Codes: L03.213 - Periorbital cellulitis (3) CKD (chronic kidney disease) Status: Chronic Assessment & Plan: - At baseline Cr, monitor closely on Vanc (4) Hypothyroidism Status: Chronic Qualifiers: Qualified Codes: E03.9 - Hypothyroidism, unspecified (5) Restless leg syndrome Status: Chronic (6) HTN (hypertension) Status: Chronic (7) Fibromyalgia Status: Chronic (8) Chronic pain Status: Chronic (9) DVT prophylaxis Status: Acute Assessment & Plan: Lovenox Await Cx from I&D Clinical Quality Measures DVT/VTE Risk/Contraindication: Risk Factor Score Per Nursin RFS Level Per Nursing on Admit: 4+=Very High SURAJ LAND DO Aug 03, 2019 11:28
[2019-08-03] MEDS: ENOXAPARIN 40 MG/0.4 ML (LOVENOX) SYR SQ SCH ×2 (11:30→22:53)
--- NOTE | 2019-08-03 12:50 | OPERATIVE REPORT ---
DATE OF SERVICE: 08/03/2019 ADMITTING PHYSICIAN: Dr. Hiral Marshall. PREOPERATIVE DIAGNOSIS: Right facial preauricular complex abscess. POSTOPERATIVE DIAGNOSIS: Right facial preauricular complex abscess. PROCEDURE: Incision and drainage complex right preauricular abscess 3 x 3 cm in size. SURGEON: Kailyn Constantino MD ANESTHESIA: General laryngeal mask airway with local. ESTIMATED BLOOD LOSS: Minimal. FINDINGS: Loculated abscess right preauricular region with the abscess cavity, approximately 3 x 3 cm in size. DISPOSITION: The patient tolerated the procedure well. INDICATIONS: The patient is a 58-year-old female admitted for pain and swelling along the preauricular region as well as surrounding swelling in the periorbital region. Since being admitted and placed on IV antibiotics, the redness and swelling have improved around the orbital region; however, she has had this persistent hardness in the preauricular region consistent with a developing abscess. Upon examination, there is fluctuance and overlying erythema along the right preauricular region 3 x 3 cm in size. DESCRIPTION OF PROCEDURE: The patient was brought to the operating room, laid supine on the table. After adequate IV pain and sedative medications and general laryngeal mask airway intubation, the face was prepped and draped in standard surgical fashion. A 1% lidocaine with epinephrine was then used to anesthetize the overlying skin in the preauricular region. A vertical skin incision was then made using a 15 blade. A loculated abscess was identified in the subcutaneous tissue and overlying the fascia, which was broken up using blunt dissection. The fluid was sent for culture and sensitivity. The abscess cavity was then packed with half inch iodoform packing, covered with sterile gauze. The patient tolerated the procedure well. We will continue with IV antibiotics and pain control and proceed with removing of the packing in 24 hours and then b.i.d. dry gauze dressing and allowed to close by secondary intention. Job ID: [id number] DocumentID: [id number] Dictated Date: 08/03/2019 10:27:40 In Tube Conversion Technician Date: 08/03/2019 12:49:38 Dictated By: KAILYN CONSTANTINO MD [facility]
--- NOTE | 2019-08-03 13:37 | NUR ---
LAB FROM PREOP MRSA SWAB -- WAS POSITIVE FOR MRSA OF [place]
[2019-08-03] MEDS: oxyCODONE/APAP 5/325MG (PERCOCET 5) TABLET PO PRN (14:01)
--- NOTE | 2019-08-03 14:12 | NUR ---
1400 -- DSG BLEEDING THROUGH , REMOVED TAPE AND 4X4S AND REPLACED AND RE TAPED , ICE BAG REPLACED -- PT WAS SLEEPING AT 1300 AND PER PT IRON TAB AND TYLENOL SCHEDULED MEDS WERE NOT TAKEN -- PT DID TAKE HER SCHEDULED LYRICA AND PT DID TAKE PERCOCET PRN TAB -- PT WAS SITTING UP IN BAD AND EATING PUDDING AND DRINKING WATER --
--- NOTE | 2019-08-03 15:52 | NUR ---
DR GIORDANO WAS TO FLOOR AND DID DRESSING CHANGE -- DR GIORDANO VOICED T PT THAT HE WOULD DO SOME CHECKING AND MAYBE SUNDAY HE WOULD DOES SURGERY ON FOOT AND AFTER SURGERY HE COULD GO HOME THAT THE INFECTION COULD BE TREATED WITH ORAL ANTIBXS Addendum: 08/03/19 at 1555 by BEATA SALGADO RN ABOVE NOTE IN ERROR ON WRONG PT
[2019-08-03] MEDS: VANCOMYCIN 1500 MG/NS 500 ML IVPB IV SCH ×2 (16:26)
[2019-08-03] MEDS: rOPINIRole 5 MG TAB (REQUIP) PO SCH ×2 (17:16→20:28)
[2019-08-03] MEDS: traZODone 50 MG (DESYREL) TAB PO SCH (20:28)
[2019-08-03] MEDS: MONTELUKAST 10 MG (SINGULAIR) TAB PO SCH (20:28)
[2019-08-04 00:31] VITALS: BP 119/72
[2019-08-04] MEDS: PIPERACILLIN/TAZOBACTAM (BULK) 4.5 GM in NS (IVPB) 100 ML IV SCH ×3 (02:27→18:42)
[2019-08-04] MEDS: oxyCODONE/APAP 5/325MG (PERCOCET 5) TABLET PO PRN ×4 (03:37→21:29)
[2019-08-04 04:15] VITALS: BP 136/76
[2019-08-04 05:34] LABS: BASOPHILS % (AUTO) 1 % (0-10); EOSINOPHILS # (AUTO) 0.4 10^3/uL (0.0-0.3); EOSINOPHILS % (AUTO) 7 % (0-10); HEMATOCRIT 29 % (35-52); HEMOGLOBIN 9.5 G/DL (11.5-16.0); LYMPHOCYTES % (AUTO) 15 % (12-44); MEAN CORPUSCULAR HEMOGLOBIN 31 PG (25-34); MEAN CORPUSCULAR HGB CONC 32 G/DL (32-36); MEAN CORPUSCULAR VOLUME 95 FL (80-99); MEAN PLATELET VOLUME 10.4 FL (7.4-10.4); MONOCYTES # (AUTO) 0.7 X 10^3 (0.0-1.0); MONOCYTES % (AUTO) 12 % (0-12); NEUTROPHILS # (AUTO) 4.2 X 10^3 (1.8-7.8); NEUTROPHILS % (AUTO) 66 % (42-75); PLATELET COUNT 189 10^3/uL (130-400); RED CELL DISTRIBUTION WIDTH 12.9 % (10.0-14.5); WHITE BLOOD COUNT 6.3 10^3/uL (4.3-11.0)
[2019-08-04 05:56] LABS: ALBUMIN 3.4 GM/DL (3.2-4.5); BILIRUBIN,TOTAL 0.3 MG/DL (0.1-1.0); CALCIUM 8.8 MG/DL (8.5-10.1); CREATININE SERUM 1.22 MG/DL (0.60-1.30); POTASSIUM 3.8 MMOL/L (3.6-5.0)
[2019-08-04] MEDS: NS IV 1000 ML 1,000 ML IV SCH ×2 (06:27→08:57)
[2019-08-04] MEDS: LEVOTHYROXINE 150 MCG (LEVOTHROID) TAB PO SCH (06:28)
[2019-08-04] MEDS: ADVAIR HFA 115/21 MCG INHALER 8 GM IH SCH (07:29)
[2019-08-04] MEDS: FERROUS SULF 325 MG (IRON) TAB PO SCH ×3 (07:57→17:38)
[2019-08-04] MEDS: DULoxetine 30 MG (CYMBALTA) CAP PO SCH (07:57)
[2019-08-04] MEDS: meTOproloL SUCCINATE 50 MG (TOPROL XL) TAB PO SCH ×2 (07:58→12:54)
[2019-08-04] MEDS: eZETimibe 10 MG (ZETIA) TABLET PO SCH (07:58)
[2019-08-04] MEDS: VITAMIN D3 25 MCG (1,000 UNITS) TABLET PO SCH (07:58)
[2019-08-04] MEDS: ASPIRIN 325 MG (5 GR) TABLET PO SCH (07:58)
[2019-08-04] MEDS: lisINopril 20 MG (PRINIVIL) TABLET PO SCH (07:59)
[2019-08-04] MEDS: SUCRALFATE 1 GM (CARAFATE) TAB PO SCH ×2 (07:59→20:34)
[2019-08-04] MEDS: PREGABALIN 150 MG (LYRICA) CAPSULE PO SCH ×3 (07:59→20:34)
[2019-08-04] MEDS: PANTOPRAZOLE 40 MG (PROTONIX) TAB PO SCH (07:59)
[2019-08-04] MEDS: GEMFIBROZIL 600 MG (LOPID) TAB PO SCH ×2 (07:59→20:34)
[2019-08-04] MEDS: ACETAMINOPHEN 500 MG TAB (TYLENOL) PO SCH ×3 (07:59→20:34)
[2019-08-04 08:00] VITALS: BP 132/62
[2019-08-04] MEDS: DICLOFENAC 1% GEL 100 GM (VOLTAREN) TUBE TOP SCH ×2 (08:00→20:35)
[2019-08-04] MEDS: METHYLCELLULOSE (CITRUCEL) 500 MG CAPLET PO SCH (08:01)
--- NOTE | 2019-08-04 08:32 | Anesthesia-General Post-Op ---
General Patient Condition Mental Status/LOC: Same as Preop Cardiovascular: Satisfactory Nausea/Vomiting: Absent Respiratory: Satisfactory Pain: Controlled Complications: Absent Post Op Complications Complications None Follow Up Care/Instructions Patient Instructions None needed. Anesthesia/Patient Condition Patient Condition Patient is doing well, no complaints, stable vital signs, no apparent adverse anesthesia problems. STEVEN NAZARIO DO Aug 04, 2019 08:32
[2019-08-04] MEDS: ENOXAPARIN 40 MG/0.4 ML (LOVENOX) SYR SQ SCH ×2 (11:06→23:32)
--- NOTE | 2019-08-04 11:33 | Progress Note - Hospitalist ---
Subjective HPI/CC On Admission Date Seen by Provider: Aug 04, 2019 Time Seen by Provider: 10:15 Subjective/Events-last exam Patient is doing well Changed her pain meds to more often HLIVF Ambulating Telemetry DC Reviewed labs Cx pending Review of Systems General: Fatigue Objective Exam Vital Signs Vital Signs Date Time Temp Pulse Resp B/P (MAP) Pulse Ox O2 Delivery O2 Flow Rate FiO2 08/04/19 18:22 92 Nasal Cannula 1.00 08/04/19 16:00 36.8 67 16 131/78 (95) Capillary Refill : Less Than 3 SecondsLess Than 3 Seconds General Appearance: No Apparent Distress, WD/WN Respiratory: Chest Non Tender, Lungs Clear, Normal Breath Sounds, No Accessory Muscle Use, No Respiratory Distress Cardiovascular: Regular Rate, Rhythm, No Edema, No Gallop, No JVD, No Murmur, Normal Peripheral Pulses Neurologic/Psychiatric: Alert, Oriented x3, No Motor/Sensory Deficits, Normal Mood/Affect Results/Procedures Lab Laboratory Tests 08/04/19 05:10 Patient resulted labs reviewed. Assessment/Plan Assessment and Plan Assess & Plan/Chief Complaint (1) Sepsis Status: Resolved Assessment & Plan: - Started on IV Zosyn/Vanc, LA normal, Fever resolved, Completed IVF hydration (2) Cellulitis, periorbital Status: Acute Assessment & Plan: - CT scan w/o abscess, warm compresses- Dr Mireles performed I&D yesterday POD # 1 under MAC- uncomplicated Qualifiers: Qualified Codes: L03.213 - Periorbital cellulitis (3) CKD (chronic kidney disease) Status: Chronic Assessment & Plan: - At baseline Cr, monitor closely on Vanc (4) Hypothyroidism Status: Chronic Qualifiers: Qualified Codes: E03.9 - Hypothyroidism, unspecified (5) Restless leg syndrome Status: Chronic (6) HTN (hypertension) Status: Chronic (7) Fibromyalgia Status: Chronic (8) Chronic pain Status: Chronic (9) DVT prophylaxis Status: Acute Assessment & Plan: Lovenox Await Cx from I&D Clinical Quality Measures DVT/VTE Risk/Contraindication: Risk Factor Score Per Nursin RFS Level Per Nursing on Admit: 4+=Very High SURAJ LAND DO Aug 04, 2019 11:33
[2019-08-04 12:00] VITALS: BP 104/51
--- NOTE | 2019-08-04 13:31 | Physical Therapy Evaluation ---
PT Evaluation-General Medical Diagnosis Admission Date Aug 01, 2019 at 09:00 Medical Diagnosis: facial cellulitis Onset Date: Aug 01, 2019 Therapy Diagnosis Therapy Diagnosis: debility Height/Weight Height (Feet): 5 Height (Inches): 1.00 Weight (Pounds): 233 Weight (Ounces): 5.0 Precautions Precautions/Isolations: Standard Precautions Referral Physician: Halley Reason for Referral: Evaluation/Treatment Medical History Pertinent Medical History: GERD, HTN, Hypothroidism Additional Medical History CKD Current History direct admit secondary to right periorbital cellulitis Reviewed History: Yes Social History Home: Single Level Current Living Status: Significant Other Prior Prior Level of Function SCALE: Activities may be completed with or without assistive devices. 2-Skbsaesjjk-cybpmfo completes the activity by him/herself with no assistance from a helper. 5-Set-up or Clean-up Assistance-helper sets up or cleans up; patient completes activity. [place] assists only prior to or following the activity. 4-Supervision or Touching Assistance-helper provides verbal cues and/or touching/steadying and/or contact guard assistance as patient completes activity. Assistance may be provided throughout the activity or intermittently. 3-Partial/Moderate Assistance-helper does LESS THAN HALF the effort. [place] lifts, holds or supports trunk or limbs, but provides less than half the effort. 2-Substantial/Maximal Assistance-helper does MORE THAN HALF the effort. [place] lifts or holds trunk or limbs and provides more than half the effort. 3-Njnqgkbkk-puvhbx does ALL the effort. Patient does none of the effort to complete the activity. Or, the assistance of 2 or more helpers is required for the patient to complete the activity. If activity was not attempted, code reason: 7-Patient Refused. 9-Not Applicable-not attempted and the patient did not perform the activity before the current illness, exacerbation or injury. 10-Not Attempted due to Environmental Limitations-(lack of equipment, weather restraints, etc.). 88-Not Attempted due to Medical Conditions or Safety Concerns. Bed Mobility: 6 Transfers (B,C,W/C): 6 Gait: 6 Stairs: 6 Indoor Mobility (Ambulation): Independent Stairs: Independent Prior Devices Use: None PT Evaluation-Current Subjective Patient agrees to PT. Pain Numeric Pain Scale: 5-Moderate Pain Location: Right Location Body Site: Face Pain Description: Throbbing Objective Patient Orientation: Normal For Age Attachments: IV ROM/Strength ROM Lower Extremities bilateral LE WFL Strength Lower Extremities 4/5 grossly bilateral LE Integumentary/Posture Integumentary refer to nursing notes Bowel Incontinence: No Bladder Incontinence: No Posture WFL Neuromuscular (Tone, Coordination, Reflexes) grossly intact Sensory Vision: Functional Hearing: Functional Sensation Right Lower Extremit: Intact Sensation Left Lower Extremity: Intact Transfers Roll Left to Right (QC): 6 Sit to Lying (QC): 6 Lying to Sitting/Side of Bed(Q: 6 Sit to Stand (QC): 6 Chair/Juk-ge-Mxbsn Xfer(QC): 6 Gait Does the Patient Walk?: Yes Mode of Locomotion: Walk Anticipated Mode of Locomotion: Walk Walk 10 feet (QC): 6 Walk 50 ft with 2 Turns(QC): 6 Walk 150 ft (QC): 6 Gait Assistive Device: None Comments/Gait Description safe and functional without AD Balance Sitting Static: Normal Sitting Dynamic: Normal Standing Static: Normal Standing Dynamic: Normal Assessment/Needs 58 y.o. female, is currently at [facility] with all gross motor skills and does not require skilled therapy intervention. Rehab Potential: Good PT Plan Treatment/Plan Treatment Plan: Discontinue PT, goals met Treatment Duration: Aug 04, 2019 Frequency: 1 time per week Estimated Hrs Per Day: .25 hour per day Patient and/or Family Agrees t: Yes Time/GCodes Time In: 1310 Time Out: 1321 Total Billed Treatment Time: 11 Total Billed Treatment 1 visit EVLowc 11 min TINA JASON PT Aug 04, 2019 13:31
--- NOTE | 2019-08-04 13:40 | NUR ---
"RD ASSESSMENT PMHx: CKD; HTN; hypothyroidism; PT INTERACTION: Pt was awake and pleasant during nutrition assessment. Pt states current appetite is pretty good, and has been for some time. Note avg PO intake 38% x2d, per chart review. Pt states following a regular diet at home though she tries to watch CHO, fats, and sodium intake. Pt states she has some difficulty with chewing/swallowing, but attributes this to age of her dentures. Pt states recent issues with nausea and diarrhea. Note last BM was 08/02 and pt not currently on bowel regimen per chart review. Pt state recent 13# wt gain x6mon. Note recent 15# wt gain x6mon, per chart review. Note presence of facial wound, per chart review. ABNORMAL NUTRITION-RELATED LAB VALUES LOW: Pro 6.0 HIGH: Cl 110 Est. kcal needs: 3074-4893 kcal | 15-18 kcal/kg Est. Pro needs: 113-136 g Pro | 1.0-1.2 g Pro/kg PES STATEMENT: Inadequate oral intake (NI-2.1) related nausea | diarrhea as evidenced by pt interview | avg PO intake 38% x2d Inadequate protein intake (NI-5.6.1) related to increased protein needs as evidenced by presence of facial wound INTERVENTION: Continue with current diet order of CHO 60g/m 0snack diet. Add Ensure HP (vary) to meals TID. Provides 160 kcal and 16 g Pro per serving for perceived benefit to wound healing. Will continue to follow and reassess as pt needs, intake, and status change. MONITOR/EVALUATE: PO Intake; Plan of Care; Hydration Status; Weight Status; Lab Values Dario Alexander, , RD, LD"
[2019-08-04] MEDS ORDERED: oxyCODONE/APAP 5/325MG (PERCOCET 5) TABLET PO NR (15:30)
[2019-08-04] MEDS: VANCOMYCIN 1500 MG/NS 500 ML IVPB IV SCH ×2 (15:41)
[2019-08-04 16:00] VITALS: BP 131/78
--- NOTE | 2019-08-04 16:30 | NUR ---
DR. CONSTANTINO NOTIFIED OF PTS. RIGHT FACIAL SWELLING INCREASING. NEW ORDER NOTED. REMOVED PACKING FROM RIGHT SIDE OF FACE. ROMULO. WELL. STERILE DRESSING APPLIED.
[2019-08-04] MEDS: rOPINIRole 5 MG TAB (REQUIP) PO SCH ×2 (17:38→20:34)
--- NOTE | 2019-08-04 18:00 | NUR ---
MOD. AMT. BLEEDING FROM INC. AREA TO RIGHT FACE. DRESSING CHANGED TO AREA.
--- NOTE | 2019-08-04 19:16 | Progress Note ---
Subjective Date Seen by a Provider: Aug 04, 2019 Time Seen by a Provider: 19:00 Subjective/Events-last exam doing ok/\. since packing removed has had some mild bleeding. pain better controlled. no fever chills. Objective Exam Vital Signs Date Time Temp Pulse Resp B/P (MAP) Pulse Ox O2 Delivery O2 Flow Rate FiO2 08/04/19 18:22 92 Nasal Cannula 1.00 08/04/19 16:00 36.8 67 16 131/78 (95) 95 Nasal Cannula 1.00 08/04/19 12:10 59 08/04/19 12:00 37.1 67 20 104/51 (68) 99 Room Air 08/04/19 08:00 Nasal Cannula 2.00 08/04/19 08:00 36.4 66 19 132/62 (85) 88 Room Air 08/04/19 07:32 98 Room Air 08/04/19 07:00 62 08/04/19 04:15 36.8 68 16 136/76 (96) 97 Room Air 08/04/19 01:00 77 08/04/19 00:31 37.0 66 18 119/72 (88) 96 Room Air 08/03/19 19:53 36.4 70 16 97/60 (72) 97 Room Air 08/03/19 19:34 Room Air 2.00 I & O 08/04/19 07:00 Intake Total 2775 ml Output Total 1500 ml Balance 1275 ml Capillary Refill : Less Than 3 SecondsLess Than 3 Seconds General Appearance: No Apparent Distress HEENT: PERRL/EOMI, Other (right face inc clean/dry) Neck: Full Range of Motion Respiratory: Chest Non Tender, Lungs Clear, Normal Breath Sounds Cardiovascular: Regular Rate, Rhythm Gastrointestinal: normal bowel sounds, non tender, soft Extremity: Normal Capillary Refill Neurologic/Psychiatric: Alert, Oriented x3 Skin: Normal Color Lymphatic: No Adenopathy Results Lab Laboratory Tests 08/03/19 20:25: Glucometer 135H 08/04/19 05:10: White Blood Count 6.3, Red Blood Count 3.09L, Hemoglobin 9.5L, Hematocrit 29L, Mean Corpuscular Volume 95, Mean Corpuscular Hemoglobin 31, Mean Corpuscular Hemoglobin Concent 32, Red Cell Distribution Width 12.9, Platelet Count 189, Mean Platelet Volume 10.4, Neutrophils (%) (Auto) 66, Lymphocytes (%) (Auto) 15, Monocytes (%) (Auto) 12, Eosinophils (%) (Auto) 7, Basophils (%) (Auto) 1, Neutrophils # (Auto) 4.2, Lymphocytes # (Auto) 1.0, Monocytes # (Auto) 0.7, Eosinophils # (Auto) 0.4H, Basophils # (Auto) 0.0, Sodium Level 142, Potassium Level 3.8, Chloride Level 110H, Carbon Dioxide Level 22, Anion Gap 10, Blood Urea Nitrogen 15, Creatinine 1.22, Estimat Glomerular Filtration Rate 45, BUN/Creatinine Ratio 12, Glucose Level 89, Calcium Level 8.8, Corrected Calcium 9.3, Total Bilirubin 0.3, Aspartate Amino Transf (AST/SGOT) 15, Alanine Aminotransferase (ALT/SGPT) 9, Alkaline Phosphatase 95, Total Protein 6.0L, Albumin 3.4 08/04/19 11:42: Glucometer 130H 08/04/19 15:46: Glucometer 119H Microbiology 08/03/19 Gram Stain - Final, Resulted 08/03/19 Anaerobic Culture, Resulted Pending 08/03/19 Surgical Culture - Preliminary, Resulted Staphylococcus aureus 08/03/19 Fungal Culture 1, Resulted Pending 08/02/19 MRSA Screen - Final, Complete Assessment/Plan Assessment/Plan Assess & Plan/Chief Complaint right preauricular facial absces s/p I&D complex abscess. packing removed today with mild bleeding. pain controlled. likely home in am. Clinical Quality Measures DVT/VTE Risk/Contraindication: Risk Factor Score Per Nursin RFS Level Per Nursing on Admit: 4+=Very High KAILYN CONSTANTINO MD Aug 04, 2019 19:16
[2019-08-04] MEDS: MONTELUKAST 10 MG (SINGULAIR) TAB PO SCH (20:34)
[2019-08-04] MEDS: traZODone 50 MG (DESYREL) TAB PO SCH (20:34)
[2019-08-05] VITALS: BP 101/57
[2019-08-05] MEDS: PIPERACILLIN/TAZOBACTAM (BULK) 4.5 GM in NS (IVPB) 100 ML IV SCH ×2 (02:54→13:20)
[2019-08-05] MEDS: oxyCODONE/APAP 5/325MG (PERCOCET 5) TABLET PO PRN ×2 (03:32→09:13)
[2019-08-05 05:48] LABS: BASOPHILS # (AUTO) 0.1 10^3/uL (0.0-0.1); BASOPHILS % (AUTO) 1 % (0-10); EOSINOPHILS # (AUTO) 0.5 10^3/uL (0.0-0.3); EOSINOPHILS % (AUTO) 9 % (0-10); HEMATOCRIT 27 % (35-52); HEMOGLOBIN 8.8 G/DL (11.5-16.0); LYMPHOCYTES # (AUTO) 1.6 X 10^3 (1.0-4.0); LYMPHOCYTES % (AUTO) 29 % (12-44); MEAN CORPUSCULAR HEMOGLOBIN 31 PG (25-34); MEAN CORPUSCULAR HGB CONC 32 G/DL (32-36); MEAN CORPUSCULAR VOLUME 95 FL (80-99); MEAN PLATELET VOLUME 10.5 FL (7.4-10.4); MONOCYTES # (AUTO) 0.7 X 10^3 (0.0-1.0); MONOCYTES % (AUTO) 13 % (0-12); NEUTROPHILS # (AUTO) 2.5 X 10^3 (1.8-7.8); NEUTROPHILS % (AUTO) 47 % (42-75); PLATELET COUNT 186 10^3/uL (130-400); RED CELL DISTRIBUTION WIDTH 12.9 % (10.0-14.5); WHITE BLOOD COUNT 5.4 10^3/uL (4.3-11.0)
[2019-08-05 06:00] LABS: ALBUMIN 3.6 GM/DL (3.2-4.5)
[2019-08-05 06:01] LABS: POTASSIUM 3.9 MMOL/L (3.6-5.0)
[2019-08-05 06:02] LABS: CALCIUM 9.1 MG/DL (8.5-10.1)
[2019-08-05 06:03] LABS: TOTAL PROTEIN 6.3 GM/DL (6.4-8.2)
[2019-08-05 06:05] LABS: BILIRUBIN,TOTAL 0.2 MG/DL (0.1-1.0)
[2019-08-05 06:07] LABS: CREATININE SERUM 1.32 MG/DL (0.60-1.30)
[2019-08-05] MEDS: LEVOTHYROXINE 150 MCG (LEVOTHROID) TAB PO SCH (06:31)
--- NOTE | 2019-08-05 07:59 | NUR ---
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
[2019-08-05 08:00] VITALS: BP 126/73
[2019-08-05] MEDS: DULoxetine 30 MG (CYMBALTA) CAP PO SCH (09:12)
[2019-08-05] MEDS: SUCRALFATE 1 GM (CARAFATE) TAB PO SCH (09:12)
[2019-08-05] MEDS: ACETAMINOPHEN 500 MG TAB (TYLENOL) PO SCH ×2 (09:13→13:21)
[2019-08-05] MEDS: GEMFIBROZIL 600 MG (LOPID) TAB PO SCH (09:14)
[2019-08-05] MEDS: ASPIRIN 325 MG (5 GR) TABLET PO SCH (09:14)
[2019-08-05] MEDS: PANTOPRAZOLE 40 MG (PROTONIX) TAB PO SCH (09:14)
[2019-08-05] MEDS: eZETimibe 10 MG (ZETIA) TABLET PO SCH (09:14)
[2019-08-05] MEDS: PREGABALIN 150 MG (LYRICA) CAPSULE PO SCH ×2 (09:14→13:20)
[2019-08-05] MEDS: lisINopril 20 MG (PRINIVIL) TABLET PO SCH (09:14)
[2019-08-05] MEDS: VITAMIN D3 25 MCG (1,000 UNITS) TABLET PO SCH (09:15)
[2019-08-05] MEDS: DICLOFENAC 1% GEL 100 GM (VOLTAREN) TUBE TOP SCH (09:16)
[2019-08-05] MEDS: METHYLCELLULOSE (CITRUCEL) 500 MG CAPLET PO SCH (09:17)
[2019-08-05] MEDS: FERROUS SULF 325 MG (IRON) TAB PO SCH ×2 (09:20→13:20)
--- NOTE | 2019-08-05 09:20 | NUR ---
DSG SAURATED WITH RED BLOODY DRAINAGE -- THIS RN CHANGED THE DSG AND APPLIED PRESSURE TO SITE AND THEN ICE BAG WAS PLACED OVER DSG
--- NOTE | 2019-08-05 09:50 | Physician Query Clarification ---
PQ-Uncertain Diagnosis Admission/Discharge Admission Date: Aug 01, 2019 at 09:00 Discharge Date: The medical record reflects the following clinical scenario: History/Risk Factors: Facial abscess Periorbital cellulitis Clinical Findings:Vitals on admission- T 37.3, P 76, R 18, BP 124/64, WBC 10.6, Lactic acid 0.62. Treatment:IV Vancomycin HCI 2,000mg, IV Piperacillin Sod/Tazobactam Sod 4.5gm/Sodium Chloride. Question: Is Sepsis a clinically valid diagnosis after study? Sepsis was documented in the Assessment/Plan with status: resolved. Please document a response in Progress Note or Discharge Summary. 1. Yes, clinically valid, condition resolved. 2. No, condition ruled out. 3. Other, with explanation of clinical findings. 4. Undetermined, no explanation for clinical findings. PHYSICIAN RESPONSE Diagnosis clinically valid: No, conditon ruled out Please remember a lack of response to the above will prompt a phone page by CDI/Coding staff. In responding to this query, please exercise your independent professional judgment. The purpose of this communication is to more accurately reflect the complexity of your patients condition. The fact that a question is asked does not imply that any particular answer is desired or expected. Thank you for your timely response to this clarification. Requestors name: Katherin Guillen [facility] Phone # [phone] or [phone] THIS PHYSICIAN QUERY FORM IS A PERMANENT PART OF THE MEDICAL RECORD KATHERIN GUILLEN Aug 05, 2019 09:50 ANN MARIE JARA MD Aug 11, 2019 19:23
[2019-08-05] MEDS: ADVAIR HFA 115/21 MCG INHALER 8 GM IH SCH (10:22)
--- NOTE | 2019-08-05 10:50 | NUR ---
DSG SATURATED WITH RED BLOODY DRAIANGE -- DSG WAS CHANGED
[2019-08-05] MEDS ORDERED: OXYC-471 PO (11:29)
[2019-08-05] MEDS ORDERED: LINE600T12 PO (11:29)
--- NOTE | 2019-08-05 11:31 | Discharge Summary ---
Discharge Summary Hospital Course Was the Problem List Reviewed?: Yes Problems/Dx: (1) Sepsis Status: Resolved (2) Cellulitis, periorbital Status: Acute Qualifiers: Qualified Codes: L03.213 - Periorbital cellulitis (3) Anxiety Status: Chronic (4) CKD (chronic kidney disease) Status: Chronic (5) Hypothyroidism Status: Chronic Qualifiers: Qualified Codes: E03.9 - Hypothyroidism, unspecified (6) Restless leg syndrome Status: Chronic (7) HTN (hypertension) Status: Chronic (8) Anemia in chronic kidney disease Status: Chronic Hospital Course Date of Admission: Aug 01, 2019 at 09:00 Admission Diagnosis : Family Physician/Provider: Hiral Marshall MD Date of Discharge: 08/05/19 Discharge Diagnosis: sepsis, right facial abscess s/p I&D Dr Mireles, CRI, HTN Hospital Course: Patient was admitted for sepsis and facial abscess placed on IVF and broad spectrum abx and Dr Mireles was consulted who performed I&D which revealed MRSA so she was DC on Zyvox and will have close f/u with Dr Mireles. Labs and Pending Lab Test: Laboratory Tests 08/04/19 11:42: Glucometer 130H 08/04/19 15:46: Glucometer 119H 08/04/19 20:42: Glucometer 125H 08/05/19 05:20: White Blood Count 5.4, Red Blood Count 2.88L, Hemoglobin 8.8L, Hematocrit 27L, Mean Corpuscular Volume 95, Mean Corpuscular Hemoglobin 31, Mean Corpuscular Hemoglobin Concent 32, Red Cell Distribution Width 12.9, Platelet Count 186, Mean Platelet Volume 10.5H, Neutrophils (%) (Auto) 47, Lymphocytes (%) (Auto) 29, Monocytes (%) (Auto) 13H, Eosinophils (%) (Auto) 9, Basophils (%) (Auto) 1, Neutrophils # (Auto) 2.5, Lymphocytes # (Auto) 1.6, Monocytes # (Auto) 0.7, Eosinophils # (Auto) 0.5H, Basophils # (Auto) 0.1, Sodium Level 143, Potassium Level 3.9, Chloride Level 109H, Carbon Dioxide Level 23, Anion Gap 11, Blood Urea Nitrogen 14, Creatinine 1.32H, Estimat Glomerular Filtration Rate 41, BUN/Creatinine Ratio 11, Glucose Level 99, Calcium Level 9.1, Corrected Calcium 9.4, Total Bilirubin 0.2, Aspartate Amino Transf (AST/SGOT) 19, Alanine Aminotransferase (ALT/SGPT) 13, Alkaline Phosphatase 88, Total Protein 6.3L, Albumin 3.6 Microbiology 08/03/19 Gram Stain - Final, Resulted 08/03/19 Anaerobic Culture, Resulted Pending 08/03/19 Surgical Culture - Preliminary, Resulted Staphylococcus aureus 08/03/19 Fungal Culture 1, Resulted Pending 08/02/19 MRSA Screen - Final, Complete Home Meds Active Zyvox (Linezolid) 600 Mg Tablet 600 Mg PO BID Oxycodone-Acetaminophen 5-325 (Oxycodone HCl/Acetaminophen) 1 Each Tablet 1 Ea PO DAILY PRN Reported Systane Complete (Propylene Glycol) 1.5 Ml Drops 1 Drop OU BID PRN Tylenol Extra Strength (Acetaminophen) 500 Mg Tablet 500 Mg PO TID Vitamin D3 (Cholecalciferol (Vitamin D3)) 50 Mcg Capsule 50 Mcg PO DAILY Nystatin 100,000 Unit/1 Ml Oral.susp 4 Ml PO PRN PRN SWISH AND SPIT Lisinopril 20 Mg Tablet 20 Mg PO DAILY Diclofenac Sodium 100 Gm Gel..gram. 1 Appful TOP BID APPLY TO KNEES AND HIPS Sucralfate 1 Gm Tablet 1 Gm PO BID Rexulti (Brexpiprazole) 2 Mg Tablet 2 Mg PO DAILY Ropinirole HCl 5 Mg Tablet 2.5 Mg PO 1700 Breo Ellipta 200-25 Mcg INH (Fluticasone/Vilanterol) 1 Each Blst.w.dev 1 Puff PO DAILY Trazodone HCl 50 Mg Tablet 50 Mg PO HS Montelukast Sodium 10 Mg Tablet 10 Mg PO HS Cephalexin 500 Mg Capsule 500 Mg PO BID FILLED 07-31-2019 #20/ DAY SUPPLY Aspirin 325 Mg Tablet 325 Mg PO DAILY Fish Oil 1,200 mg Fish Oil (Fish Oil/Dha/Epa) 1 Each Capsule 1 Each PO TID Fiber Therapy (Methylcellulose) 500 Mg Tablet 500 Mg PO DAILY Ferrous Sulfate 325 Mg Tablet 325 Mg PO TID Zetia (Ezetimibe) 10 Mg Tablet 10 Mg PO DAILY Proair Hfa (Albuterol Sulfate) 1 Puff Puff 2 Puff IH Q4H PRN Metoprolol Succinate 50 Mg Tab.er.24h 50 Mg PO DAILY Ropinirole HCl 5 Mg Tablet 5 Mg PO HS Ipratropium [place] 15 Ml Naspr 1 Sprays NS TID Duloxetine HCl 60 Mg Capsule.dr 60 Mg PO DAILY Pantoprazole Sodium 40 Mg Tablet.dr 40 Mg PO DAILY Levothyroxine Sodium 150 Mcg Tablet 150 Mcg PO DAILY Fluticasone Propionate 16 Gm [place].susp 1 [place] NS BID PRN Gemfibrozil 600 Mg Tablet 600 Mg PO BID Lyrica (Pregabalin) 150 Mg Capsule 150 Mg PO TID Assessment/Pt Instructions [facility] 1 week Dressing changes per Dr Mireles Discharge Planning: <30 minutes discharge planning Discharge Instructions Discharge Diet: No Restrictions Discharge Physical Examination Vital Signs Vital Signs Date Time Temp Pulse Resp B/P (MAP) Pulse Ox O2 Delivery O2 Flow Rate FiO2 08/05/19 10:23 98 Nasal Cannula 1.00 08/05/19 09:46 36.9 08/05/19 08:00 69 18 126/73 (90) General Appearance: No Apparent Distress, WD/WN Respiratory: Chest Non Tender, Lungs Clear, Normal Breath Sounds, No Accessory Muscle Use, No Respiratory Distress Cardiovascular: Regular Rate, Rhythm, No Edema, No Gallop, No JVD, No Murmur, Normal Peripheral Pulses Skin: Other (dressing intact right evangelical region) Neurologic/Psychiatric: Alert, Oriented x3, No Motor/Sensory Deficits, Normal M ood/Affect Allergies: Coded Allergies: NSAIDS (Non-Steroidal Anti-Inflamma (Verified Allergy, Unknown, 08/03/18) PATIENT REPORTED THAT SHE HAS STAGE 4 RENAL DISEASE Sulfa (Sulfonamide Antibiotics) (Verified Allergy, Unknown, 08/03/18) diltiazem (Unverified Allergy, Unknown, 10/10/17) Discharge Summary Date of Admission Aug 01, 2019 at 09:00 Date of Discharge Discharge Date: Aug 05, 2019 Discharge Diagnosis (1) Sepsis Status: Resolved Assessment & Plan: - Started on IV Zosyn/Vanc, LA normal, Fever resolved, Completed IVF hydration (2) Cellulitis, periorbital Status: Acute Assessment & Plan: - CT scan w/o abscess, warm compresses- Dr Mireles performed I&D yesterday POD # 1 under MAC- uncomplicated Qualifiers: Qualified Codes: L03.213 - Periorbital cellulitis (3) CKD (chronic kidney disease) Status: Chronic Assessment & Plan: - At baseline Cr, monitor closely on Vanc (4) Hypothyroidism Status: Chronic Qualifiers: Qualified Codes: E03.9 - Hypothyroidism, unspecified (5) Restless leg syndrome Status: Chronic (6) HTN (hypertension) Status: Chronic (7) Fibromyalgia Status: Chronic (8) Chronic pain Status: Chronic (9) DVT prophylaxis Status: Acute Assessment & Plan: Lovenox Await Cx from I&D Clinical Quality Measures DVT/VTE Risk/Contraindication: Risk Factor Score Per Nursin RFS Level Per Nursing on Admit: 4+=Very High SURAJ LAND DO Aug 05, 2019 11:31
[2019-08-05] MEDS: ENOXAPARIN 40 MG/0.4 ML (LOVENOX) SYR SQ SCH (13:20)
[2019-08-05] MEDS: VANCOMYCIN 1500 MG/NS 500 ML IVPB IV SCH ×2 (15:37)
[2019-08-05 16:24] VITALS: BP 149/65
[2019-08-05] MEDS: rOPINIRole 5 MG TAB (REQUIP) PO SCH (17:00)
[2019-08-05 17:16] VITALS: BP 149/65
== END 2019-08-05 17:20 | disposition home or self-care (01) | DRG 580 ==
LOC: 4TH 09:00
PROVIDERS: ADMIT Family Medicine; ATTEND Family Medicine
PROC: 0J910ZZ Drainage of Face Subcutaneous Tissue and Fascia, Open Approach (ICD-10-PCS; principal; 2019-08-03 09:31)
DX: L02.01 Cutaneous abscess of face (principal); L03.213 Periorbital cellulitis; H81.01 Meniere's disease, right ear; I12.9 Hypertensive chronic kidney disease with stage 1 through stage 4 chronic kidney disease, or unspecified chronic kidney disease; N18.3 Chronic kidney disease, stage 3 (moderate); D63.1 Anemia in chronic kidney disease; M79.7 Fibromyalgia; G89.29 Other chronic pain; E03.9 Hypothyroidism, unspecified; N39.46 Mixed incontinence; G25.81 Restless legs syndrome; J30.2 Other seasonal allergic rhinitis; X58.XXXA Exposure to other specified factors, initial encounter; E78.00 Pure hypercholesterolemia, unspecified; M19.91 Primary osteoarthritis, unspecified site; A49.02 Methicillin resistant Staphylococcus aureus infection, unspecified site
CPT/HCPCS: 36415; 70480; 80053; 80202; 82962; 83605; 85025; 87070; 87075; 87077; 87081; 87101; 87186; 87205; 94640; 94760

== ENCOUNTER 2019-08-05 19:16 | Emergency (ER) | payer MEDICARE, MEDICAID ==
[~2019-08-05] VITALS: Ht 154.9 cm; Wt 113.4 kg
[~2019-08-05 19:16] MED LIST changes: +BREX2TAB PO; +CHOL20003 PO; +EZET10TA49 PO; +FLUT1BLS PO; +LINE600T12 PO; +LISI-552 PO; +METH479P4 PO; +PROP1.5D OU; +SUCR1TAB PO; +TRZ50T PO
[2019-08-05] MEDS ORDERED: L.E.T. SYRINGE 5 ML ONE (19:27)
--- NOTE | 2019-08-05 19:44 | ED Integumentary General ---
General Stated Complaint: POST D/C CUTANEOUS ABSCESS OF FACE, Source: patient Exam Limitations: no limitations History of Present Illness Date Seen by Provider: Aug 05, 2019 Time Seen by Provider: 19:39 Initial Comments To ER with reports of a bleeding incision on her face. She was discharged about 5 PM following an admission for several days of facial cellulitis, with IV abx and I&D. She had an abscess over the right temporal region. Packing was removed and she's had some persistent bleeding from the right side of her face. Timing/Duration: just prior to arrival Severity: moderate Location: face Associated Symptoms: denies symptoms Allergies and Home Medications Allergies Coded Allergies: NSAIDS (Non-Steroidal Anti-Inflamma (Verified Allergy, Unknown, 08/03/18) PATIENT REPORTED THAT SHE HAS STAGE 4 RENAL DISEASE Sulfa (Sulfonamide Antibiotics) (Verified Allergy, Unknown, 08/03/18) diltiazem (Unverified Allergy, Unknown, 10/10/17) Home Medications Acetaminophen 500 Mg Tablet, 500 MG PO TID, (Reported) Albuterol Sulfate 1 Puff Puff, 2 PUFF IH Q4H PRN for WHEEZING, (Reported) Aspirin 325 Mg Tablet, 325 MG PO DAILY, (Reported) Brexpiprazole 2 Mg Tablet, 2 MG PO DAILY, (Reported) Cholecalciferol (Vitamin D3) 50 Mcg Capsule, 50 MCG PO DAILY, (Reported) Diclofenac Sodium 100 Gm Gel..gram., 1 APPFUL TOP BID, (Reported) APPLY TO KNEES AND HIPS Duloxetine HCl 60 Mg Capsule.dr, 60 MG PO DAILY, (Reported) Ezetimibe 10 Mg Tablet, 10 MG PO DAILY, (Reported) Ferrous Sulfate 325 Mg Tablet, 325 MG PO TID, (Reported) Fish Oil/Dha/Epa 1 Each Capsule, 1 EACH PO TID, (Reported) Fluticasone Propionate 16 Gm [place].susp, 1 SPRAY NS BID PRN for ALLERGIES/CONGESTION, (Reported) Fluticasone/Vilanterol 1 Each Blst.w.dev, 1 PUFF PO DAILY, (Reported) Gemfibrozil 600 Mg Tablet, 600 MG PO BID, (Reported) Ipratropium Apex 15 Ml Naspr, 1 SPRAYS NS TID, (Reported) Levothyroxine Sodium 150 Mcg Tablet, 150 MCG PO DAILY, (Reported) Linezolid 600 Mg Tablet, 600 MG PO BID Prescribed by: SURAJ LAND on 08/05/19 1129 Lisinopril 20 Mg Tablet, 20 MG PO DAILY, (Reported) Methylcellulose 500 Mg Tablet, 500 MG PO DAILY, (Reported) Metoprolol Succinate 50 Mg Tab.er.24h, 50 MG PO DAILY, (Reported) Montelukast Sodium 10 Mg Tablet, 10 MG PO HS, (Reported) Nystatin 100,000 Unit/1 Ml Oral.susp, 4 ML PO PRN PRN for THURSH FROM INALER, ( Reported) SWISH AND SPIT Oxycodone HCl/Acetaminophen 1 Each Tablet, 1 EA PO DAILY PRN for PAIN-MODERATE (5-7) Prescribed by: SURAJ LAND on 08/05/19 112 Pantoprazole Sodium 40 Mg Tablet.dr, 40 MG PO DAILY, (Reported) Pregabalin 150 Mg Capsule, 150 MG PO TID, (Reported) Propylene Glycol 1.5 Ml Drops, 1 DROP OU BID PRN for DRY EYES, (Reported) Ropinirole HCl 5 Mg Tablet, 5 MG PO HS, (Reported) Ropinirole HCl 5 Mg Tablet, 2.5 MG PO 1700, (Reported) Sucralfate 1 Gm Tablet, 1 GM PO BID, (Reported) Trazodone HCl 50 Mg Tablet, 50 MG PO HS, (Reported) Patient Home Medication List Home Medication List Reviewed: Yes Review of Systems Review of Systems Constitutional: see HPI EENTM: see HPI Respiratory: no symptoms reported Cardiovascular: no symptoms reported Genitourinary: no symptoms reported Skin: no symptoms reported Psychiatric/Neurological: No Symptoms Reported Endocrine: No Symptoms Reported Past Ffhnjoy-Wmqbpo-Kkxcgm Hx Patient Social History 2nd Hand Smoke Exposure: Yes Recent Foreign Travel: No Contact w/Someone Who Travel: No Recent Hopitalizations: No Immunizations Up To Date Tetanus Booster (TDap): Unknown Date of Influenza Vaccine: Jan 14, 2017 Seasonal Allergies Seasonal Allergies: No Past Medical History Surgeries: Yes ( lt endolymphatic shunt mastoids, esphageal zenker diverticulum removed) Appendectomy, Bladder Surgery, Section, Gallbladder, Hysterectomy, Orthopedic Respiratory: Yes (ASTHMA) Asthma, Sleep Apnea Currently Using CPAP: Yes Currently Using BIPAP: No Cardiac: Yes Coronary Artery Disease, High Cholesterol, Hypertension, Valvular Heart Disease Neurological: Yes Headaches /Migraines Reproductive Disorders: No Sexually Transmitted Disease: No Genitourinary: Yes Renal Failure Gastrointestinal: Yes (Zenker's diverticulia removed 2014) Gastroesophageal Reflux Musculoskeletal: Yes (FIBROMYALGIA) Arthritis, Fibromyalgia Endocrine: Yes (hypo thyroid) Hypothyroidsim HEENT: Yes Cataract Cancer: No Psychosocial: Yes Anxiety, Depression Integumentary: No Blood Disorders: No Adverse Reaction/Blood Tranf: No Family Medical History Arthritis 19 FATHER 19 MOTHER Asthma 19 FATHER 19 MOTHER Cardiovascular disease 19 FATHER 19 MOTHER Cataracts 19 FATHER 19 MOTHER Completed stroke 19 FATHER 19 MOTHER Congenital heart disease Coronary thrombosis 19 MOTHER Deafness or hearing loss 19 FATHER 19 MOTHER Diabetes mellitus 19 FATHER 19 MOTHER Headache disorder 19 MOTHER Hypercholesterolemia 19 MOTHER Hypertension 19 FATHER 19 MOTHER Kidney disease 19 MOTHER Myocardial infarction 19 FATHER 19 MOTHER Neoplasm 19 MOTHER (SKIN CA) Thyroid disease 19 MOTHER Visual disorder 19 MOTHER Physical Exam Vital Signs Capillary Refill : General Appearance: WD/WN, no apparent distress HEENT: PERRL/EOMI, normal ENT inspection, other (there is some persistent oozing of blood from the right side of her face. ) Neck: non-tender, full range of motion Respiratory: no respiratory distress, no accessory muscle use Neurologic/Psychiatric: alert, normal mood/affect, oriented x 3 Skin: normal color, warm/dry Skin Problem Character: abscess, other (incision, active persistent oozing of bright red blood. the matted dried blood was removed. wound repacked with 1/4inch iodoform gauze. Persistently oozing but has slowed since packing. LET applied. ) Progress/Results/Core Measures Results/Orders My Orders Orders - FELCIIANO WAYNE APRN Let Solution (Let Solution) (08/05/19 19:27) Medications Given in ED Current Medications Medications Dose Ordered Sig/Sonia Route Start Time Stop Time Status Last Admin Dose Admin Tetracaine/ Epinephrine/ Lidocaine 1 ea STK-MED ONCE .ROUTE 08/05/19 19:27 08/05/19 19:34 DC 08/05/19 19:35 1 EA Departure Communication (Admissions) 2020-bleeding has stopped at this time, I applied a nonadherent gauze pad over the quarter-inch packing, 4 x 4, [place]. We will send her home like this. I'll have her return tomorrow morning to have the packing removed and gauze reapplied if necessary. Impression Primary Impression: post operative bleeding Disposition: 01 HOME, SELF-CARE Condition: Stable Departure-Patient Inst. Decision time for Depature: 19:45 Referrals: [facility] (PCP) Primary Care Physician ANN MARIE JARA MD (Family) Primary Care Physician Patient Instructions: Skin Abscess Add. Discharge Instructions: 1. Keep the packing and dressing in place overnight. Return to ER for any recurrent bleeding or other concerns. Otherwise return to the ER tomorrow morning to have the packing removed and the dressing changed. FELICIANO WAYNE EVENTS AND PROMOTIONS ASSISTANT Aug 05, 2019 19:44
[2019-08-05 20:28] VITALS: BP 192/96
--- OUTSIDE RECORDS SUMMARY | 2019-08-05 20:54 | XMS REPORT | Continuity of Care Document ---
Demographics Preferred Language Unknown Marital Status Unknown Pent[employer]al Affiliation Unknown Race Unknown Ethnic Group Unknown Author Organization Unknown Address Unknown Phone Unavailable Allergies Active Description Code Type Severity Reaction Onset Reported/Identified Relationship to Patient Clinical Status Yes No Known Drug Allergies [id number] Drug Allergy Unknown N/A 09/29/2015 Yes diltiazem [id number] Drug Allergy Unknown N/A 10/10/2017 Yes NSAIDS (Non-Steroidal Anti-Inflamma [id number] Drug Allergy Unknown N/A 08/03/2018 Yes Sulfa (Sulfonamide Antibiotics) [id number] Drug Allergy Unknown N/A 019 Medications There is no data. 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 10/24/2005 Ot 780.57 01/27/2009 [...] Combined Systolic And Diastolic Elevation 01/27/2009 CORLEY MORTGAGE LOAN COMPUTATION CLERK, MAKSIM R 244.9 HYPOTHYROIDISM 01/27/2009 CORLEY MORTGAGE LOAN COMPUTATION CLERK, MAKSIM R 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 01/27/2009 CORLEY MORTGAGE LOAN COMPUTATION CLERK, MAKSIM R 244.9 HYPOTHYROIDISM 01/27/2009 CORLEY MORTGAGE LOAN COMPUTATION CLERK, MAKSIM R 401.9 Combined Systolic And Diastolic [...] FORD PSYD ANN L 244.9 HYPOTHYROIDISM 01/27/2009 MCCKEIRA PEDRAZA PSYD L 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 10/06/2009 Ot 354.0 CARP AL TUNNEL SYNDROME 11/03/2009 Ot 354.0 CARP AL TUNNEL SYNDROME 11/16/2009 Ot 998.59 OTH POSTOPER INFECTION 11/25/2009 Ot 278.00 OBE SITY, NOS 11/25/2009 Ot 311 DEPRES SIVE DISORDER NEC 11/25/2009 Ot 403.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, UNSPEC, W CHR KD ST 11/25/2009 Ot 493.90 AST HMA, UNSPECIFIED 11/25/2009 Ot 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, STAGE II (MILD) 11/25/2009 [...] 03/15/2010 CAMERON OGLESBY DO 780.52 Insomnia 03/15/2010 CAMERON OGLESBY DO 787.1 Heartburn 03/15/2010 OGLESBY DO, CAMERON K 729.1 FIBROMYALGIA 03/15/2010 OGLESBY DOESTHELAA K 780.52 Insomnia 03/15/2010 OGLESBY DOESTHELAA K 787.1 Heartburn 03/15/2010 729.1 FIBR OMYALGIA 03/15/2010 780.52 Ins omnia 03/15/2010 787.1 Hear tburn 03/15/2010 OGLESBY CAMERON WASSERMAN K 729.1 FIBROMYALGIA 03/15/2010 CAMERON OGLESBY DO K 780.52 Insomnia 03/15/2010 CAMERON OGLESBY DO K 787.1 Heartburn 03/15/2010 STACEY GAMINO PA-C [...] DO 729.1 FIBROMYALGIA 03/15/2010 CAMERON OGLESBY DO K 780.52 Insomnia 03/15/2010 CAMERON OGLESBY DO 787.1 Heartburn 03/15/2010 CAMERON OGLESBY DO 729.1 FIBROMYALGIA 03/15/2010 CAMERON OGLESBY DO 780.52 Insomnia 03/15/2010 OGLESBY ESTHELA WASSERMANA K 787.1 Heartburn 03/15/2010 STACEY GAMINO PA-C 729.1 FIBROMYALGIA 03/15/2010 STACEY GAMINO PA-C 780.52 Insomnia 03/15/2010 STACEY GAMINO PA-C 787.1 Heartburn 03/15/2010 CAMERON OGLESBY DO 729.1 FIBROMYALGIA 03/15/2010 CAMERON OGLESBY DO K 780.52 Insomnia 03/15/2010 CAMERON OGLESBY DO 787.1 Heartburn 03/15/2010 OGLESBY CAMERON WASSERMAN 729.1 FIBROMYALGIA 03/15/2010 OGLESBY DO, CAMERON K [...] DO, CAMERON K 787.1 Heartburn 03/15/2010 BARNEY MORTGAGE LOAN COMPUTATION CLERK, MAKSIM R 729.1 FIBROMYALGIA 03/15/2010 CORLEY MORTGAGE LOAN COMPUTATION CLERK, MAKSIM R 780.52 Insomnia 03/15/2010 CORLEY MORTGAGE LOAN COMPUTATION CLERK, MAKSIM R 787.1 Heartburn 03/15/2010 CORLEY MORTGAGE LOAN COMPUTATION CLERK, MAKSIM R 729.1 FIBROMYALGIA 03/15/2010 CORLEY MORTGAGE LOAN COMPUTATION CLERK, MAKSIM R 780.52 Insomnia 03/15/2010 CORLEY MORTGAGE LOAN COMPUTATION CLERK, MAKSIM R 787.1 Heartburn 03/15/2010 OGLESBY DO, [...] OGLESBY DO CAMERON K 787.1 Heartburn 03/15/2010 JORDAN MCDONALD [...] HYPERTENSION, BENIGN ESSENTIAL 04/20/2010 STACEY GAMINO PA-C M 401.1 HYPERTENSION, BENIGN ESSENTIAL 04/20/2010 401.1 HYPE [...] APRNIA R 401.1 HYPERTENSION, BENIGN ESSENTIAL 04/20/2010 LATISHA CORLEY APRNRICIA R 401.1 HYPERTENSION, BENIGN ESSENTIAL 04/20/2010 OGLESBY [...] CORLEY APRN R 726.73 HEEL SPUR 07/14/2010 CORLEY MORTGAGE LOAN COMPUTATION CLERK, MAKSIM R 726.73 HEEL SPUR 07/14/2010 OGLESBY DO, CAMERON K 726.73 HEEL SPUR 07/14/2010 OGLESBY DO, CAMREON K 726.73 HEEL SPUR 07/14/2010 OGLESBY DO, [...] RLIPIDEMIA 08/17/2010 272.4 HYPE RLIPIDEMIA 08/17/2010 OGLESBY DOCAMERON K 272.4 HYPERLIPIDEMIA 08/17/2010 OGLESBY DOESTHELAA K 272.4 HYPERLIPIDEMIA 08/17/2010 272.4 HYPE RLIPIDEMIA [...] OGLESBY DO, CAMERON K 272.4 HYPERLIPIDEMIA 08/17/2010 MAKSIM CORLEY APRN R 272.4 HYPERLIPIDEMIA 08/17/2010 LATISHA CORLEY APRNRICIA R 272.4 HYPERLIPIDEMIA 08/17/2010 OGLESBY DO, CAMERON [...] 09/16/2010 729.4 PLAN TAR FASCIITIS 09/16/2010 OGLESBY DO CAMERON K 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 SYNDROME 09/16/2010 [...] CAMERON K 729.4 PLANTAR FASCIITIS 09/16/2010 CORLEY MORTGAGE LOAN COMPUTATION CLERK, MAKSIM 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 09/16/2010 CORLEY MORTGAGE LOAN COMPUTATION CLERK, MAKSIM R 729.4 PLANTAR FASCIITIS 09/16/2010 CORLEY MORTGAGE LOAN COMPUTATION CLERK, MAKSIM 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 09/16/2010 CORLEY MORTGAGE LOAN COMPUTATION CLERK, MAKSIM R 729.4 PLANTAR FASCIITIS 09/16/2010 OGLESBY [...] PSYD 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 SYNDROME 09/16/2010 KEIRA OFRD PSYD 729.4 PLANTAR FASCIITIS 11/24/2010 461.9 Sinu [...] STACEY GAMINO PA-C 461.9 Sinusitis Acute 11/24/2010 STACYE GAMINO PA-C 477.9 Allergic Rhinitis 11/24/2010 STACEY [...] DO CAMERON K 461.9 Sinusitis Acute 11/24/2010 OGLEBSY DO CAMERON K 477.9 Allergic Rhinitis 11/24/2010 [...] K 786.05 Shortness Of Breath 11/24/2010 CORLEY MORTGAGE LOAN COMPUTATION CLERK, MAKSIM R 461.9 Sinusitis Acute 11/24/2010 COLREY MORTGAGE LOAN COMPUTATION CLERK, MAKSIM R 477.9 Allergic Rhinitis 11/24/2010 CORLEY MORTGAGE LOAN COMPUTATION CLERK, MAKSIM R 786.05 Shortness Of Breath 11/24/2010 CORLEY MORTGAGE LOAN COMPUTATION CLERK, MAKSIM R 461.9 Sinusitis Acute 11/24/2010 CORLEY MORTGAGE LOAN COMPUTATION CLERK, MAKSIM R 477.9 Allergic Rhinitis 11/24/2010 CORLEY MORTGAGE LOAN COMPUTATION CLERK, MAKSIM R 786.05 Shortness Of Breath 11/24/2010 [...] CAMERON K 786.05 Shortness Of Breath 11/24/2010 TAMARA MORTGAGE LOAN COMPUTATION CLERKJORDAN Ellis 461. 9 Sinusitis Acute 11/24/2010 TAMARA MORTGAGE LOAN COMPUTATION CLERKJORDAN 477. 9 Allergic Rhinitis 11/24/2010 JORDAN MCDONALD APRN 786. 05 Shortness Of Breath 11/24/2010 STACEY GAMINO PA-C 461.9 Sinusitis Acute 11/24/2010 STACEY GAMINO PA-C 477.9 Allergic Rhinitis 11/24/2010 STACEY GAMINO PA-C 786.05 Shortness Of Breath 11/24/2010 KEIRA FORD PSYD ANN L 461.9 Sinusitis Acute 11/24/2010 KIERA FORD PSYD ANN L 477.9 Allergic Rhinitis 11/24/2010 KEIRA FORD PSYD ANN L 786.05 Shortness Of Breath 11/28/2010 586 [...] 586 Renal Failure 11/28/2010 STACEY GAMINO PA-C M 5 86 Renal Failure 11/28/2010 OGLESBY DO, CAMERON K 586 Renal Failure 11/28/2010 OGLESBY DO, CAMERON K 586 Renal Failure 11/28/2010 OGLESBY DO, CAMERON K 586 Renal Failure 11/28/2010 OGLESBY DO, CAMERON K 586 Renal Failure 11/28/2010 OGLESBY DO, CAMERON K 586 Renal Failure 11/28/2010 OGLESBY DO, CAMERON K 586 Renal Failure 11/28/2010 LATISHA CORLEY APRNRICIA R 586 Renal Failure 11/28/2010 LATISHA CORLEY APRNRICIA R 586 Renal Failure 11/28/2010 OGLESBY DO, [...] CAMERON K 787.20 Pain On Swallowing 12/09/2010 OGLEBSY DO, CAMREON K 787.20 Pain On Swallowing 12/09/2010 OGLESBY [...] 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.6 DIVERTICULUM OF ESOPHAGUS ACQUIRED 12/22/2010 CORLEY MORTGAGE LOAN COMPUTATION CLERK, MAKSIM R 530.6 DIVERTICULUM OF ESOPHAGUS ACQUIRED 12/22/2010 BARNEY MORTGAGE LOAN COMPUTATION CLERK, MAKSIM R 530.6 DIVERTICULUM OF ESOPHAGUS ACQUIRED [...] Acu te Laryngitis Without Obstruction 01/03/2011 780.79 Ot er Malaise And Fatigue 01/03/2011 OGLESBY DO, CAMERON K 464.00 Acute Laryngitis Without Obstruction 01/03/2011 OGLESBY DO CAMERON K 780.79 Other Malaise And Fatigue [...] 780.79 Other Malaise And Fatigue 01/03/2011 CORLEY MORTGAGE LOAN COMPUTATION CLERK, MAKSIM R 464.00 Acute Laryngitis Without Obstruction 01/03/2011 BARNEY MORTGAGE LOAN COMPUTATION CLERK, MAKSIM R 780.79 Other Malaise And Fatigue 01/03/2011 CORLEY MORTGAGE LOAN COMPUTATION CLERK, MAKSIM R 464.00 Acute Laryngitis Without Obstruction 01/03/2011 CORLEY MORTGAGE LOAN COMPUTATION CLERK, MAKSIM R 780.79 Other Malaise And Fatigue [...] E RENAL FAILURE, UNSPECIFIED 01/15/2011 Ot 585.9 DIRECTOR OF AGRONOMY NORBERTO KIDNEY DISEASE, UNSPECIFIED 01/15/2011 Ot 729.1 [...] Unspecified Gastritis And Gastroduodenitis (without Hemorrhage) 01/17/2011 BARNEY MORTGAGE LOAN COMPUTATION CLERK, MAKSIM R 535.50 Unspecified Gastritis And Gastroduodenitis (without He morrhage) 01/17/2011 BARNEY MORTGAGE LOAN COMPUTATION CLERK, MAKSIM R 535.50 Unspecified Gastritis And Gastroduodenitis (without [...] 01/24/2011 530.81 ESO PHAGEAL REFLUX 01/24/2011 585.3 DIRECTOR OF AGRONOMY NORBERTO KIDNEY DISEASE STAGE 3 01/24/2011 787.91 Yadira rrhea 01/24/2011 333.94 RES TLESS LEGS SYNDROME 01/24/2011 530.81 ESO PHAGEAL REFLUX 01/24/2011 585.3 DIRECTOR OF AGRONOMY NORBERTO KIDNEY DISEASE STAGE 3 01/24/2011 787.91 Yadira rrhea 01/24/2011 OGLESBY DO, CAMERON K 333.94 RESTLESS LEGS SYNDROME 01/24/2011 OGLSEBY DO, CAMERON K 530.81 ESOPHAGEAL REFLUX 01/24/2011 [...] 01/24/2011 530.81 ESO PHAGEAL REFLUX 01/24/2011 585.3 DIRECTOR OF AGRONOMY NORBERTO KIDNEY DISEASE STAGE 3 01/24/2011 787.91 [...] 01/24/2011 530.81 ESO PHAGEAL REFLUX 01/24/2011 585.3 DIRECTOR OF AGRONOMY NORBERTO KIDNEY DISEASE STAGE 3 01/24/2011 787.91 Yadira rrhea 01/24/2011 333.94 RES TLESS LEGS SYNDROME 01/24/2011 530.81 ESO PHAGEAL REFLUX 01/24/2011 585.3 DIRECTOR OF AGRONOMY NORBERTO KIDNEY DISEASE STAGE 3 01/24/2011 787.91 Yadira rrhea 01/24/2011 333.94 RES TLESS LEGS SYNDROME 01/24/2011 530.81 ESO PHAGEAL REFLUX 01/24/2011 585.3 DIRECTOR OF AGRONOMY NORBERTO KIDNEY DISEASE STAGE 3 01/24/2011 787.91 [...] STACEY GAMINO PA-C 787.91 Diarrhea 01/24/2011 OGLESBY DO CAMERON K 333.94 RESTLESS LEGS SYNDROME 01/24/2011 [...] DO, CAMERON K 787.91 Diarrhea 01/24/2011 CORLEY MORTGAGE LOAN COMPUTATION CLERK, MAKSIM R 333.94 RESTLESS LEGS SYNDROME 01/24/2011 CORLEY MORTGAGE LOAN COMPUTATION CLERK, MAKSIM R 530.81 ESOPHAGEAL REFLUX 01/24/2011 CORLEY MORTGAGE LOAN COMPUTATION CLERK, MAKSIM R 585.3 CHRONIC KIDNEY DISEASE STAGE 3 01/24/2011 BARNEY MORTGAGE LOAN COMPUTATION CLERK, MAKSIM R 787.91 Diarrhea 01/24/2011 CORLEY MORTGAGE LOAN COMPUTATION CLERK, MAKSIM R 333.94 RESTLESS LEGS SYNDROME 01/24/2011 BARNEY MORTGAGE LOAN COMPUTATION CLERK, MAKSIM R 530.81 ESOPHAGEAL REFLUX 01/24/2011 CORLEY MORTGAGE LOAN COMPUTATION CLERK, MAKSIM R 585.3 CHRONIC KIDNEY DISEASE STAGE 3 01/24/2011 CORLEY MORTGAGE LOAN COMPUTATION CLERK, MAKSIM R 787.91 Diarrhea 01/24/2011 OGLESBY DO, [...] K 787.91 Diarrhea 01/24/2011 KEIRA FORD PSYD ANN L 333.94 RESTLESS LEGS SYNDROME 01/24/2011 KEIRA FORD PSYD ANN L 530.81 ESOPHAGEAL REFLUX 01/24/2011 KEIRA FORD PSYD ANN L 585.3 CHRONIC KIDNEY DISEASE STAGE 3 01/24/2011 KEIRA FORD PSYD ANN L 787.91 Diarrhea 01/24/2011 OGLESBY DO, CAMERON [...] PA-C 787.91 Diarrhea 01/24/2011 KEIRA FORD PSYD ANN L 333.94 RESTLESS LEGS SYNDROME 01/24/2011 KEIRA FORD PSYD ANN L 530.81 ESOPHAGEAL REFLUX 01/24/2011 KEIRA FORD PSYD ANN L 585.3 CHRONIC KIDNEY DISEASE STAGE 3 01/24/2011 KEIRA FORD PSYD ANN L 787.91 Diarrhea 02/10/2011 Ot 490 BRONCH [...] DO, CAMERON K 458.0 Orthostatic Hypotension 02/21/2011 BARNEY MORTGAGE LOAN COMPUTATION CLERK, MAKSIM R 458.0 Orthostatic Hypotension 02/21/2011 CORLEY MORTGAGE LOAN COMPUTATION CLERK, MAKSIM R 458.0 Orthostatic Hypotension 02/21/2011 OGLESBY [...] DO, CAMERON K 461.9 Sinusitis Acute 03/23/2011 BARNEY TAVERASN, MAKSIM R 276.50 Volume Depletion Unspecified 03/23/2011 BARNEY MORTGAGE LOAN COMPUTATION CLERK, MAKSIM R 461.9 Sinusitis Acute 03/23/2011 BARNEY MORTGAGE LOAN COMPUTATION CLERK, MAKSIM R 276.50 Volume Depletion Unspecified 03/23/2011 BARNEY MORTGAGE LOAN COMPUTATION CLERK, MAKSIM R 461.9 Sinusitis Acute 03/23/2011 OGLESBY [...] Volume Depletion Unspecified 03/23/2011 KEIRA FORD PSYD ANN L 461.9 Sinusitis Acute 04/20/2011 382.9 Unsp [...] R 382.9 Unspecified Otitis Media 04/20/2011 BARNEY TAVERASN, MAKSIM R 382.9 Unspecified Otitis Media 04/20/2011 [...] OGLESBY DO, CAMERON K 782.3 EDEMA 05/19/2011 OGLSEBY DO, CAMERON K 786.2 Cough 05/19/2011 OGLESBY [...] DO, CAMERON K 786.2 Cough 05/19/2011 CORLEY MORTGAGE LOAN COMPUTATION CLERK, MAKSIM R 782.3 EDEMA 05/19/2011 CORLEY MORTGAGE LOAN COMPUTATION CLERK, MAKSIM R 786.2 Cough 05/19/2011 CORLEY MORTGAGE LOAN COMPUTATION CLERK, MAKSIM R 782.3 EDEMA 05/19/2011 CORLEY MORTGAGE LOAN COMPUTATION CLERK, MAKSIM R 786.2 Cough 05/19/2011 OGLESBY DO, [...] JORDAN MCDONALD APRN 786. 2 Cough 05/19/2011 STAECY GAMINO PA-C 782.3 EDEMA 05/19/2011 STACEY GAMINO PA-C 786.2 Cough 05/19/2011 KEIRA FORD PSYD 782.3 EDEMA 05/19/2011 KEIRA FORD PSYD 786.2 Cough 06/23/2011 311 DEPRES SIVE DISORDER NOT ELSEWHERE CLASSIFIED 06/23/2011 780.52 ins omnia 06/23/2011 V41.0 Visi on Problems 06/23/2011 V58.69 WILTON G-TERM (CURRENT) USE OF OTHER MEDICATIONS 06/23/2011 311 DEPRES SIVE DISORDER NOT ELSEWHERE CLASSIFIED 06/23/2011 780.52 ins omnia 06/23/2011 V41.0 Visi on Problems 06/23/2011 V58.69 [place] G-TERM (CURRENT) USE OF OTHER MEDICATIONS 06/23/2011 MENDEL [...] CAMERON OGLESBY DO K 780.52 insomnia 06/23/2011 EMNDEL WASSERMAN CAMERON K V41.0 Vision Problems 06/23/2011 MENDEL [...] 06/23/2011 CAMERON OGLESBY DO 780.52 insomnia 06/23/2011 OGLESBY DO CAMERON K [...] WASSERMAN CAMERON K V41.0 Vision Problems 06/23/2011 MENDEL WASSERMAN CAMERON K V58.69 LONG-TERM (CURRENT) USE OF OTHER MEDICATIONS 06/23/2011 ESTHELA OGLESBY DOA K 311 DEPRESSIVE DISORDER NOT ELSEWHERE CLASSIFIED 06/23/2011 MENDEL WASSERMAN CAMERON Carolee 780.52 insomnia 06/23/2011 OGLESBY DO CAMERON K [...] (CURRENT) USE OF OTHER MEDICATIONS 06/23/2011 BARNEY MORTGAGE LOAN COMPUTATION CLERKDIONTE EllisIA R 311 DEPRESSIVE DISORDER NOT ELSEWHERE CLASSIFIED 06/23/2011 DIONTE CORLEY APRNIA R 780.52 insomnia 06/23/2011 BARNEY MORTGAGE LOAN COMPUTATION CLERKLATISHA EllisMAKSIM R V41.0 Vision Problems 06/23/2011 LATISHA CORLEY APRNRICIA R V58.69 LONG-TERM (CURRENT) USE OF OTHER MEDICATIONS 06/23/2011 BARNEY MORTGAGE LOAN COMPUTATION CLERKLATISHA EllisMAKSIM R 311 DEPRESSIVE DISORDER NOT ELSEWHERE CLASSIFIED 06/23/2011 BARNEY MORTGAGE LOAN COMPUTATION CLERK MAKSIM R 780.52 insomnia 06/23/2011 BARNEY MORTGAGE LOAN COMPUTATION CLERK MAKSIM R V41.0 Vision Problems 06/23/2011 BARNEY MORTGAGE LOAN COMPUTATION CLERK MAKSIM R V58.69 LONG-TERM (CURRENT) USE OF OTHER MEDICATIONS 06/23/2011 OGLESBY DO CAMERON K 311 DEPRESSIVE DISORDER NOT ELSEWHERE CLASSIFIED 06/23/2011 OGLESBY DO CAMERON K 780.52 insomnia 06/23/2011 OGLESBY DO, CAMERON K V41.0 Vision Problems 06/23/2011 OGLSEBY DO, CAMERON K V58.69 LONG-TERM (CURRENT) USE [...] KEIRA FORD PSYD 780.52 insomnia 06/23/2011 KEIRA FODR PSYD V41.0 Vision Problems 06/23/2011 KEIRA FORD [...] 309.24 AD ADJ D/O W ANXIETY 07/21/2011 DIONTE CORLEY APRNIA R 309.24 AD ADJ D/O W ANXIETY [...] AD ADJ D/O W ANXIETY 07/21/2011 MENDEL WASSERMANCAMERON K 309.24 AD ADJ D/O W ANXIETY 07/21/2011 JORDAN MCDONALD APRN 309. 24 AD ADJ D/O W ANXIETY 07/21/2011 STACEY GAMINO PA-C 309.24 AD ADJ D/O W ANXIETY 07/21/2011 KEIRA FORD PSYD 309.24 AD ADJ D/O W ANXIETY 10/15/2011 Ot 280.9 IRON DEFIC ANEMIA NOS 10/15/2011 Ot 285.21 ANE JAIRON IN CHRONIC KIDNEY DISEASE 10/15/2011 Ot 585.3 DIRECTOR OF AGRONOMY NORBERTO KIDNEY DISEASE, STAGE III (MODER 10/15/2011 Ot V58.69 OTH MED,LT,CURRENT USE 11/03/2011 300.00 AN ANXIETY UNSPEC 11/03/2011 300.00 AN ANXIETY UNSPEC 11/03/2011 CAMERON OGLESBY DO 300.00 AN ANXIETY UNSPEC 11/03/2011 OGLESBY DO, [...] DO, CAMERON K 528.2 Oral Aphthae 11/07/2011 HANNY HARTLEY, STACEY Strong 528.2 Oral Aphthae 11/07/2011 528.2 Oral Aphthae 11/07/2011 528.2 Oral Aphthae 11/07/2011 528.2 Oral Aphthae 11/07/2011 OGLESBY DO, CAMERON K 528.2 ORAL APHTHAE 11/07/2011 OGLESBY DO, CAMERON K 528.2 Oral Aphthae 11/07/2011 STACEY GAMINO PA-C 528.2 Oral Aphthae 11/07/2011 GOLESBY DO, CAMERON K 528.2 Oral Aphthae 11/07/2011 OGLESBY DO, CAMERON K 528.2 Oral Aphthae 11/07/2011 OGLESBY DO, CAMERON K 528.2 Oral Aphthae 11/07/2011 OGLESBY DO, CAMERON K 528.2 Oral Aphthae 11/07/2011 OGLESBY DO, CAMERON K 528.2 Oral Aphthae 11/07/2011 OGLESBY DO, CAMERON K 528.2 Oral Aphthae 11/07/2011 BARNEY MORTGAGE LOAN COMPUTATION CLERK, MAKSIM R 528.2 Oral Aphthae 11/07/2011 CORLEY MORTGAGE LOAN COMPUTATION CLERK, MAKSIM R 528.2 Oral Aphthae 11/07/2011 OGLESBY [...] 12/07/2011 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 12/07/2011 MENDEL DOESTHELAA K 717.7 CHONDROMALACIA OF [place] 12/07/2011 OGLESBY DO CAMERON K 717.7 CHONDROMALACIA OF [place] 12/07/2011 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 12/07/2011 ESTHELA OGLESBY DOA K 717.7 CHONDROMALACIA OF [place] 12/07/2011 STACEY [...] V01.9 Expo sure To Contagious Disease 02/14/2012 CAMERON OGLESBY DO V01.9 Exposure To Contagious Disease 02/14/2012 CAMERON OGLESBY DO K V01.9 Exposure To Contagious Disease 02/14/2012 V01.9 Expo sure To Contagious Disease 02/14/2012 CAMERON OGLESBY DO K V01.9 Exposure To Contagious Disease 02/14/2012 [...] CORLEY APRNIA R 466.0 Bronchitis, Acute 02/23/2012 BARNEY LIND, MAKSIM R 466.0 Bronchitis, Acute 02/23/2012 OGLESBY DO, CAMERON K 466.0 Bronchitis, Acute 02/23/2012 OGLESBY DO, CAMERON K 466.0 Bronchitis, Acute 02/23/2012 OGLESBY DO, CAMERON K 466.0 Bronchitis, Acute 02/23/2012 OGLESBY DO, CAMERON K 466.0 Bronchitis, Acute 02/23/2012 OGLESBY DO, CAMERON K 466.0 Bronchitis, Acute 02/23/2012 KEIRA FORD PSYD L 466.0 Bronchitis, Acute 02/23/2012 OGLESBY DO, CAMERON K 466.0 Bronchitis, Acute 02/23/2012 JORDAN MCDONALD APRN 466. 0 Bronchitis, Acute 02/23/2012 STACEY GAMINO PA-C 466.0 Bronchitis, Acute 02/23/2012 KEIRA FORD PSYD L 466.0 Bronchitis, Acute 04/02/2012 OGLESBY DO, CAMERON K 372.14 OTHER CHRONIC ALLERGIC CONJUNCTIVITIS 04/02/2012 CAMERON OGLESBY DO 780.79 OTHER MALAISE AND FATIGUE 04/02/2012 CAMERON OGLESBY DO K 783.1 ABNORMAL WEIGHT GAIN 04/02/2012 372.14 OT ER CHRONIC ALLERGIC CONJUNCTIVITIS 04/02/2012 780.79 OTH ER MALAISE AND FATIGUE 04/02/2012 783.1 ABNO RMAL WEIGHT GAIN 04/02/2012 CAMERON OGLESBY DO K 372.14 OTHER CHRONIC ALLERGIC CONJUNCTIVITIS 04/02/2012 [...] GAMINO PA-C 783.1 ABNORMAL WEIGHT GAIN 04/02/2012 CAMERON OGLESBY DO 372.14 OTHER CHRONIC ALLERGIC CONJUNCTIVITIS 04/02/2012 OGLESBY [...] K 783.1 ABNORMAL WEIGHT GAIN 04/02/2012 CORLEY MORTGAGE LOAN COMPUTATION CLERK, MAKSIM R 372.14 OTHER CHRONIC ALLERGIC CONJUNCTIVITIS 04/02/2012 CORLEY MORTGAGE LOAN COMPUTATION CLERK, MAKSIM R 780.79 OTHER MALAISE AND FATIGUE 04/02/2012 CORLEY MORTGAGE LOAN COMPUTATION CLERK, MAKSIM R 783.1 ABNORMAL WEIGHT GAIN 04/02/2012 CORLEY MORTGAGE LOAN COMPUTATION CLERK, MAKSIM R 372.14 OTHER CHRONIC ALLERGIC CONJUNCTIVITIS 04/02/2012 CORLEY MORTGAGE LOAN COMPUTATION CLERK, MAKSIM R 780.79 OTHER MALAISE AND FATIGUE 04/02/2012 CORLEY MORTGAGE LOAN COMPUTATION CLERK, MAKSIM R 783.1 ABNORMAL WEIGHT GAIN 04/02/2012 [...] FORD PSYD L 783.1 ABNORMAL WEIGHT GAIN 04/02/2012 OGLESBY DO, [...] CAMERON K 461.9 Sinusitis Acute 06/03/2012 BARNEY LIND, MAKSIM R 461.9 Sinusitis Acute 06/03/2012 BARNEY TAVERASN, MAKSMI R 461.9 Sinusitis Acute 06/03/2012 OGLESBY DO, [...] CORONARY ATHEROSCLEROSIS OF UNSPECIFIED TYPE OF VESSEL [place] OR [place] 06/13/2012 OGLESBY , CAMERON K 785.1 PALPITATIONS 06/13/2012 STACEY GAMINO PA-C 414.00 CORONARY ATHEROSCLEROSIS OF UNSPECIFIED TYPE OF VESSEL [place] OR GRAFT 06/13/2012 TSACEY GAMINO PA-C 785.1 PALPITATIONS 06/13/2012 414.00 COR ONARY ATHEROSCLEROSIS OF UNSPECIFIED TYPE OF VESSEL [place] OR GRAFT 06/13/2012 785.1 PALP ITATIONS 06/13/2012 414.00 COR ONARY ATHEROSCLEROSIS OF UNSPECIFIED TYPE OF VESSEL [place] OR GRAFT 06/13/2012 785.1 PALP ITATIONS 06/13/2012 414.00 COR ONARY ATHEROSCLEROSIS OF UNSPECIFIED TYPE OF VESSEL [place] OR GRAFT 06/13/2012 785.1 PALP ITATIONS 06/13/2012 OGLESBY DO CAMERON K 414.00 CORONARY ATHEROSCLEROSIS OF UNSPECIFIED TYPE OF VESSEL [place] OR GRAFT 06/13/2012 OGLESBY DO, CAMERON K 785.1 PALPITATIONS 06/13/2012 STACEY GAMINO PA-C 414.00 CORONARY ATHEROSCLEROSIS OF UNSPECIFIED TYPE OF VESSEL [place] OR GRAFT 06/13/2012 STACEY GAMINO PA-C 785.1 PALPITATIONS 06/13/2012 OGLESBY DO, CAMERON K 414.00 CORONARY ATHEROSCLEROSIS OF UNSPECIFIED TYPE OF VESSEL [place] OR G[place]FT 06/13/2012 OGLESBY DO, CAMERON K 785.1 PALPITATIONS 06/13/2012 OGLESBY DO, CAMERON K 414.00 CORONARY ATHEROSCLEROSIS OF UNSPECIFIED TYPE OF VESSEL [place]FT 06/13/2012 OGLESBY DO, CAMERON K 785.1 PALPITATIONS 06/13/2012 OGLESBY DO, CAMERON K 414.00 CORONARY ATHEROSCLEROSIS OF UNSPECIFIED TYPE OF VESSEL [place]FT 06/13/2012 OGLESBY DO, CAMERON K 785.1 PALPITATIONS 06/13/2012 OGLESBY DO, CAMERON K 414.00 CORONARY ATHEROSCLEROSIS OF UNSPECIFIED TYPE OF VESSEL [place] 06/13/2012 OGLESBY DO, CAMERON K 785.1 PALPITATIONS 06/13/2012 OGLESBY DO, CAMERON K 414.00 CORONARY ATHEROSCLEROSIS OF UNSPECIFIED TYPE OF VESSEL [place] 06/13/2012 OGLESBY DO, CAMERON K 785.1 PALPITATIONS 06/13/2012 OGLESBY DO, CAMERON K 414.00 CORONARY ATHEROSCLEROSIS OF UNSPECIFIED TYPE OF VESSEL [place] 06/13/2012 OGLESBY DO, CAMERON K 785.1 PALPITATIONS 06/13/2012 [employer] COMPUTATION CLERK, MAKSIM R 414.00 CORONARY ATHEROSCLEROSIS OF UNSPECIFIED TYPE OF VESSEL [place] 06/13/2012 [employer] COMPUTATION CLERK, MAKSIM R 785.1 PALPITATIONS 06/13/2012 [employer] COMPUTATION CLERK, MAKSIM R 414.00 CORONARY ATHEROSCLEROSIS OF UNSPECIFIED TYPE OF VESSEL [place] 06/13/2012 [employer] COMPUTATION CLERK, MAKSIM R 785.1 PALPITATIONS 06/13/2012 OGLESBY DO, CAMERON K 414.00 CORONARY ATHEROSCLEROSIS OF UNSPECIFIED TYPE OF VESSEL [place] 06/13/2012 OGLESBY DO, CAMERON K 785.1 PALPITATIONS 06/13/2012 OGLESBY DO, CAMERON K 414.00 CORONARY ATHEROSCLEROSIS OF UNSPECIFIED TYPE OF VESSEL [place] 06/13/2012 OGLESBY DO, CAMERON K 785.1 PALPITATIONS 06/13/2012 OGLESBY DO, CAMERON K 414.00 CORONARY ATHEROSCLEROSIS OF UNSPECIFIED TYPE OF VESSEL [place] 06/13/2012 OGLESBY DO, CAMERON K 785.1 PALPITATIONS 06/13/2012 OGLESBY DO, CAMERON K 414.00 CORONARY ATHEROSCLEROSIS OF UNSPECIFIED TYPE OF VESSEL [place] 06/13/2012 OGLESBY DO, CAMERON K 785.1 PALPITATIONS 06/13/2012 OGLESBY DO, CAMERON K 414.00 CORONARY ATHEROSCLEROSIS OF UNSPECIFIED TYPE OF VESSEL [place] 06/13/2012 OGLESBY DO, CAMERON K 785.1 PALPITATIONS 06/13/2012 KEIRA FORD PSYD L 414.00 CORONARY ATHEROSCLEROSIS OF UNSPECIFIED TYPE OF VESSEL [place] 06/13/2012 KEIRA FORD PSYD L 785.1 PALPITATIONS 06/13/2012 OGLESBY DO, CAMERON K 414.00 CORONARY ATHEROSCLEROSIS OF UNSPECIFIED TYPE OF VESSEL [place] 06/13/2012 OGLESBY DO, CAMERON K 785.1 PALPITATIONS 06/13/2012 JORDAN MCDONALD APRN 414. 00 CORONARY ATHEROSCLEROSIS OF UNSPECIFIED TYPE OF VESSEL [place] 06/13/2012 JORDAN MCDONALD APRN 785. 1 PALPITATIONS 06/13/2012 STACEY GAMINO PA-C 414.00 CORONARY ATHEROSCLEROSIS OF UNSPECIFIED TYPE OF VESSEL [place] 06/13/2012 STACEY GAMINO PA-C 785.1 PALPITATIONS 06/13/2012 KEIRA FORD PSYD L 414.00 CORONARY ATHEROSCLEROSIS OF UNSPECIFIED TYPE OF VESSEL [place] 06/13/2012 KEIRA FORD PSYD L 785.1 PALPITATIONS 07/17/2012 STACEY GAMINO PA-C 427.9 ARRHYTHMIA, CARDIAC (SINUS) 07/17/2012 427.9 ARRH YTHMIA, CARDIAC (SINUS) 07/17/2012 427.9 ARRH YTHMIA, CARDIAC (SINUS) 07/17/2012 427.9 ARRH YTHMIA, CARDIAC (SINUS) 07/17/2012 OGLESBY DO, CAMERON K 427.9 ARRHYTHMIA, CARDIAC (SINUS) 07/17/2012 STACEY GAMINO PA-C 427.9 ARRHYTHMIA, CARDIAC (SINUS) 07/17/2012 OGLESBY DO, CAMERON K 427.9 ARRHYTHMIA, CARDIAC (SINUS) 07/17/2012 OGLESBY DO, CAMERON K 427.9 ARRHYTHMIA, CARDIAC (SINUS) 07/17/2012 OGLESBY DO, CAMERON K 427.9 ARRHYTHMIA, CARDIAC (SINUS) 07/17/2012 OGLESBY DO, CAMERON K 427.9 ARRHYTHMIA, CARDIAC (SINUS) 07/17/2012 OGLESBY DO, CAMERON K 427.9 ARRHYTHMIA, CARDIAC (SINUS) 07/17/2012 OGLESBY DO, CAMERON K 427.9 ARRHYTHMIA, CARDIAC (SINUS) 07/17/2012 BARNEY LIND, MAKSIM R 427.9 ARRHYTHMIA, CARDIAC (SINUS) 07/17/2012 BARNEY LIND, MAKSIM R 427.9 ARRHYTHMIA, CARDIAC (SINUS) 07/17/2012 [...] APRN 427. 9 ARRHYTHMIA, CARDIAC (SINUS) 07/17/2012 TSACEY GAMINO PA-C 427.9 ARRHYTHMIA, CARDIAC (SINUS) 07/17/2012 [...] CORLEY APRN R 493.90 ASTHMA UNSPECIFIED 08/09/2012 DIONTE CORLEY APRNIA R 493.90 ASTHMA UNSPECIFIED 08/09/2012 OGLESBY DO, [...] MCDONALD APRN 493. 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) 09/04/2012 OGLESYB DO, CAMERON K 791.0 PROTEINURIA 09/04/2012 JORDAN [...] UNSPECIFIED DERANGEMENT OF MEDIAL MENISCUS 12/26/2012 CORLEY MORTGAGE LOAN COMPUTATION CLERK, MAKSIM R 717.3 OTHER AND UNSPECIFIED DERANGEMENT OF MEDIAL MENISCUS 12/26/2012 CORLEY MORTGAGE LOAN COMPUTATION CLERK, MAKSIM R 717.3 OTHER AND UNSPECIFIED DERANGEMENT [...] CAMERON K 625.6 STRESS INCONTINENCE FEMALE 02/27/2013 DIONTE CORLEY APRNIA R 625.6 STRESS INCONTINENCE FEMALE 02/27/2013 BARNEY MORTGAGE LOAN COMPUTATION CLERK, MAKSIM R 625.6 STRESS INCONTINENCE FEMALE 02/27/2013 OGLESBY DO, CAMERON K 625.6 STRESS INCONTINENCE FEMALE 02/27/2013 OGLESBY DO, CAMERON K 625.6 STRESS INCONTINENCE FEMALE 02/27/2013 OGLESBY DO, CAMERON K 625.6 STRESS INCONTINENCE FEMALE 02/27/2013 OGLESBY DO, CAMERON K 625.6 STRESS INCONTINENCE FEMALE 02/27/2013 OGLESBY DO, CAMERON K 625.6 STRESS INCONTINENCE FEMALE 02/27/2013 KEIAR FORD PSYD 625.6 STRESS INCONTINENCE FEMALE 02/27/2013 [...] OGLESBY DO, CAMERON K 784.0 HEADACHE 08/22/2013 BARNEY LIND MAKSIM R 585.4 CHRONIC KIDNEY DISEASE STAGE IV (SEVERE) 08/22/2013 BARNEY LIND MAKSIM R 784.0 HEADACHE 08/22/2013 BARNEY LIND MAKSIM R 585.4 CHRONIC KIDNEY DISEASE STAGE IV (SEVERE) 08/22/2013 BARNEY TAVERASN, MAKSIM R 784.0 HEADACHE 08/22/2013 OGLESBY DO, [...] KIDNEY DISEASE STAGE IV (SEVERE) 08/22/2013 KEIRA FODR PSYD 784.0 HEADACHE 10/29/2013 BARNEY LIND, MAKSIM R 034.0 STREP THROAT 10/29/2013 BARNEY LIND, MAKSIM R 786.2 COUGH 10/29/2013 BARNEY LIND, MAKSIM R 034.0 STREP THROAT 10/29/2013 BARNEY TAVERASN, MAKSIM R 786.2 COUGH 10/29/2013 OGLESBY DO, [...] DO, CAMERON K 034.0 STREP THROAT 10/29/2013 ESTHELA OGLESBY DOA K 786.2 COUGH 10/29/2013 KEIRA FORD PSYD 034.0 STREP THROAT 10/29/2013 KEIRA FORD PSYD 786.2 COUGH 10/29/2013 MENDEL WSASERMAN CAMERON K 034.0 STREP THROAT 10/29/2013 CAMERON OGLESBY DO K 786.2 COUGH 10/29/2013 JORDAN MCDONALD APRN 034. 0 STREP THROAT 10/29/2013 JORDAN MCDONALD APRN 786. 2 COUGH 10/29/2013 STACEY GAMINO PA-C 034.0 STREP THROAT 10/29/2013 STACEY GAMINO PA-C 786.2 COUGH 10/29/2013 KEIRA FORD PSYD 034.0 STREP THROAT 10/29/2013 KEIRA FORD PSYD 786.2 COUGH 03/30/2014 MENDEL WASSERMAN CAMERON K 461.9 SINUSITIS ACUTE 03/30/2014 KEIRA FORD [...] PSYD 300.02 AN GEN ANXIETY 06/01/2014 MENDEL WASSERMANCAMERON 300.02 AN GEN ANXIETY 06/01/2014 JORDAN MCDONALD APRN 300. 02 AN GEN ANXIETY 06/01/2014 STACEY GAMINO PA-C 300.02 AN GEN ANXIETY 06/01/2014 KEIRA FORD PSYD 300.02 AN GEN ANXIETY 06/04/2014 CAMERON OGLESBY [...] Ot I25. 10 ATHSCL HEART DISEASE OF [place] CORONARY 01/20/2015 ARUNA HERNANDEZ MD Ot N18. 4 CHRONIC KIDNEY DISEASE, STAGE 4 (SEVERE) 01/20/2015 ARUNA HERNANDEZ MD Ot R07. 9 CHEST PAIN, UNSPECIFIED 01/20/2015 ARUNA HRENANDEZ MD Ot R94. 39 ABNORMAL RESULT OF OTHER CARDIOVASCULAR 01/20/2015 ARUNA HERNANDEZ MD Ot Z68. 42 BODY MASS INDEX (BMI) 45.0-49.9, ADULT 01/20/2015 ARUNA HERNANDEZ MD Ot Z79.899 OTHER [facility] (CURRENT) DRUG THERAPY 03/25/2015 FELICIANO WAYNE MORTGAGE LOAN COMPUTATION CLERK Ot K52 .9 NONINFECTIVE GASTROENTERITIS AND COLITIS 03/25/2015 FELICIANO WAYNE MORTGAGE LOAN COMPUTATION CLERK Ot N39 .0 URINARY TRACT INFECTION, SITE NOT SPECIF 03/25/2015 FELICIANO WAYNE MORTGAGE LOAN COMPUTATION CLERK Ot Z90.49 ACQUIRED ABSENCE OF OTHER SPECIFIED [...] MD Ot 786. 50 09/23/2015 KERA MARINA Ot V76.12 OTH SCREEN MAMMO-MALIGN NEOPLASM OF CHARLIE 09/23/2015 ARUNA HERNANDEZ MD Ot 414. 00 CORON ATHEROSCLER NOS TYPE VESSEL, NATIV 09/23/2015 ARUNA HERNANDEZ MD Ot 427. 31 ATRIAL FIBRILLATION 09/23/2015 ARUNA HERNANDEZ MD Ot 786. 50 CHEST PAIN NOS 09/23/2015 WHITMOREBEVERLY WAGNER DO Ot K22. 5 DIVERTICULUM OF ESOPHAGUS, ACQUIRED 09/23/2015 BEVERLY WHITMORE DO Ot R13. 10 DYSPHAGIA, UNSPECIFIED 09/29/2015 BEVERLY WHITMORE DO Ot K52. 9 NONINFECTIVE GASTROENTERITIS AND COLITIS 09/29/2015 BEVERLY WHITMORE DO Ot Z01.818 ENCOUNTER FOR OTHER PREPROCEDURAL EXAMIN 09/29/2015 ISABEL MAE Ot Z12.31 ENCNTR SCREEN MAMMOGRAM FOR MALIGNANT NE 09/30/2015 WHITMORE BEVERLY WASSERMAN Ot K52. 9 NONINFECTIVE GASTROENTERITIS AND COLITIS 09/30/2015 WHITMORE BEVERLY WASSERMAN Ot Z01.818 ENCOUNTER FOR OTHER PREPROCEDURAL EXAMIN 10/05/2015 BEVERLY WHITMORE DO Ot K52. 9 NONINFECTIVE GASTROENTERITIS AND COLITIS 10/05/2015 BEVERLY WHITMORE DO Ot Z86.010 PERSONAL HISTORY OF COLONIC POLYPS 10/07/2015 WHITMORE BEVERLY WASSERMAN Ot K52. 9 NONINFECTIVE GASTROENTERITIS AND COLITIS 10/07/2015 WHITMORE BEVERLY WASSERMAN D Ot Z86.010 PERSONAL HISTORY OF COLONIC POLYPS 10/08/2015 WHITMORE BEVERLY WASSERMAN Ot K52. 9 NONINFECTIVE GASTROENTERITIS AND COLITIS 10/08/2015 WHITMORE BEVERLY WASSERMAN Ot Z86.010 PERSONAL HISTORY OF COLONIC POLYPS 10/08/2015 WHITMORE BEVERLY WASSERMAN D Ot K52. 9 NONINFECTIVE GASTROENTERITIS AND COLITIS 10/08/2015 WHITMORE BEVERLY WASSERMAN Ot Z86.010 PERSONAL HISTORY OF COLONIC POLYPS 04/06/2016 BEVERLY WHITMORE DO Ot K22. 5 DIVERTICULUM OF ESOPHAGUS, ACQUIRED 04/06/2016 WHITMORE BEVERLY WASSERMAN Ot R13. 10 DYSPHAGIA, UNSPECIFIED 04/06/2016 ARUNA HERNANDZE MD Ot 414. 00 CORON ATHEROSCLER NOS TYPE VESSEL, NATIV 04/06/2016 ARUNA HERNANDEZ MD Ot 427. 31 ATRIAL FIBRILLATION 04/06/2016 DAVID DOHERTY, ARUNA Hernandez Ot 786. 50 CHEST PAIN NOS 04/06/2016 BEVERLY WHITMORE DO Ot K22. 5 DIVERTICULUM OF ESOPHAGUS, ACQUIRED 04/06/2016 BEVERLY WHITMORE DO Ot R13. 10 DYSPHAGIA, UNSPECIFIED 04/07/2016 FELICIANO WAYNE MORTGAGE LOAN COMPUTATION CLERK Ot K52 .9 NONINFECTIVE GASTROENTERITIS AND COLITIS 04/07/2016 FELICIANO WAYNE MORTGAGE LOAN COMPUTATION CLERK Ot N39 .0 URINARY TRACT INFECTION, SITE NOT SPECIF 04/07/2016 FELICIANO WAYNE MORTGAGE LOAN COMPUTATION CLERK Ot Z90.49 ACQUIRED ABSENCE OF OTHER SPECIFIED PART 04/14/2016 MADL, ISABEL L VIROLOGIST Ot E55 .9 VITAMIN D DEFICIENCY, UNSPECIFIED 04/14/2016 MADL, ISABEL L VIROLOGIST Ot M85.89 OTH DISRD OF BONE DENSITY AND STRUCTURE, 04/26/2016 MADL, ISABEL L VIROLOGIST Ot E55 .9 VITAMIN D DEFICIENCY, UNSPECIFIED 04/26/2016 MADL, ISABEL L VIROLOGIST Ot M85.89 OTH DISRD OF BONE DENSITY AND STRUCTURE, 05/01/2016 BEVERLY WHITMORE DO Ot K22. 5 DIVERTICULUM OF ESOPHAGUS, ACQUIRED 05/01/2016 BEVERLY WHITMORE DO Ot R13. 10 DYSPHAGIA, UNSPECIFIED 05/15/2016 JULIAN DOHERTY, RUSTAM Guerra Ot M17.11 UNILATERAL PRIMARY OSTEOARTHRITIS, RIGHT 05/15/2016 RUSTAM JORDAN MD Ot M17.12 UNILATERAL PRIMARY OSTEOARTHRITIS, LEFT 05/15/2016 RUSTAM JORDAN MD Ot M54.16 RADICULOPATHY, LUMBAR REGION 05/18/2016 RUSTAM JORDAN MD Ot M17.11 UNILATERAL PRIMARY OSTEOARTHRITIS, RIGHT 05/18/2016 RUSTAM JORDAN MD Ot M17.12 UNILATERAL PRIMARY OSTEOARTHRITIS, LEFT 05/18/2016 RUSTAM JORDAN MD Ot M54.16 RADICULOPATHY, LUMBAR REGION 05/18/2016 RUSTAM [...] 06/19/2016 BRENTON BENNETT MD, Ot Z79.899 OTHER [facility] (CURRENT) DRUG THERAPY 06/19/2016 KERA MARINA Ot [...] Ot M17.12 UNILATERAL PRIMARY OSTEOARTHRITIS, LEFT 06/19/2016 RUSTAM JORDAN MD, Ot M54.16 RADICULOPATHY, LUMBAR REGION 07/04/2016 BRENTON BENNETT MD Ot E66. 01 MORBID (SEVERE) OBESITY DUE TO EXCESS CA 07/04/2016 BRENTON BENNETT MD, Ot M47.816 SPONDYLOSIS W/O MYELOPATHY OR RADICULOPA 07/04/2016 BRENTON BENNETT MD, Ot M53. 3 SACROCOCCYGEAL DISORDERS, NOT ELSEWHERE 07/04/2016 BRENTON BENNETT MD, Ot M79. 7 FIBROMYALGIA 07/04/2016 BRENTON BENNETT MD, Ot Z68. 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 THERAPY 10/03/2016 GARRET DOHERTY, STACEY Reese Ot E03.9 HYPOTHYROIDISM, UNSPECIFIED 10/03/2016 STACEY COMBS [...] MD Ot R51 HEADACHE 10/30/2016 ISABEL MAE VIROLOGIST Ot Z12.31 ENCNTR SCREEN MAMMOGRAM FOR MALIGNANT [...] I10 ESSENTIAL (PRIMARY) HYPERTENSION 12/19/2016 GHULAM BURNETT MD, Ot I12 .9 HYPERTENSIVE CHRONIC KIDNEY DISEASE W ST 12/19/2016 GHULAM BURNETT MD, Ot I34 .1 NONRHEUMATIC MITRAL (VALVE) PROLAPSE 12/19/2016 GHULAM BURNETT MD Ot J45.909 UNSPECIFIED ASTHMA, UNCOMPLICATED 12/19/2016 GHULAM BURNETT MD, Ot K21 .9 GASTRO-ESOPHAGEAL REFLUX DISEASE WITHOUT 12/19/2016 GHULAM BURNETT MD Ot M19.91 PRIMARY OSTEOARTHRITIS, UNSPECIFIED SITE 12/19/2016 GHULAM BURNETT MD Ot M79 .7 FIBROMYALGIA 12/19/2016 GHULAM BURNETT MD, Ot N18 .9 CHRONIC KIDNEY DISEASE, UNSPECIFIED [...] ENCNTR SCREEN MAMMOGRAM FOR MALIGNANT NE 02/09/2017 MADL, ISABEL L VIROLOGIST Ot E55 .9 VITAMIN D DEFICIENCY, UNSPECIFIED 02/09/2017 ISABEL MAEP Ot M85.89 OTH DISRD OF BONE DENSITY AND STRUCTURE, 02/09/2017 JULIAN DOHERTY, RUSTAM Guerra Ot M17.11 UNILATERAL PRIMARY OSTEOARTHRITIS, RIGHT 02/09/2017 RUSTAM JORDAN MD Ot M17.12 UNILATERAL PRIMARY OSTEOARTHRITIS, LEFT 02/09/2017 JULIAN DOHERTY, RUSTAM Guerra Ot M54.16 RADICULOPATHY, LUMBAR REGION 02/09/2017 BRENTON BENNETT MD Ot E66. 01 MORBID (SEVERE) OBESITY DUE TO EXCESS CA 02/09/2017 BRENTON BENNETT MD Ot M47.816 SPONDYLOSIS W/O MYELOPATHY OR RADICULOPA 02/09/2017 BRENTON BENNETT MD Ot M53. 3 SACROCOCCYGEAL DISORDERS, NOT ELSEWHERE 02/09/2017 BRENTON BENNETT MD Ot M79. 7 FIBROMYALGIA 02/09/2017 BRENTON BENNETT MD Ot Z68. 41 BODY MASS INDEX (BMI) 40.0-44.9, ADULT 02/09/2017 BRENTON BENNETT MD, Ot Z79.899 OTHER SYSTEMS INTEGRATION MANAGER (CURRENT) DRUG THERAPY 02/09/2017 ISABEL MAE Ot [...] R13. 10 DYSPHAGIA, UNSPECIFIED 04/28/2017 ISABEL MAE VIROLOGIST Ot Z12.31 ENCNTR SCREEN MAMMOGRAM FOR MALIGNANT NE 04/28/2017 ISABEL MAEP Ot E55 .9 VITAMIN D DEFICIENCY, UNSPECIFIED 04/28/2017 ISABEL MAEP Ot M85.89 OTH DISRD OF BONE DENSITY AND STRUCTURE, 04/28/2017 RUSTAM JORDAN MD Ot M17.11 UNILATERAL PRIMARY OSTEOARTHRITIS, RIGHT 04/28/2017 RUSTAM JORDAN MD Ot M17.12 UNILATERAL PRIMARY OSTEOARTHRITIS, LEFT 04/28/2017 RUSTAM JORDAN MD Ot M54.16 RADICULOPATHY, LUMBAR REGION 04/28/2017 BRENTNO BENNETT MD Ot E66. 01 MORBID (SEVERE) OBESITY DUE TO EXCESS CA 04/28/2017 BRENTON BENNETT MD, Ot M47.816 SPONDYLOSIS W/O MYELOPATHY OR RADICULOPA 04/28/2017 BRENTON BENNETT MD, Ot M53. 3 SACROCOCCYGEAL DISORDERS, NOT ELSEWHERE 04/28/2017 BRENTON BENNETT MD, Ot M79. 7 FIBROMYALGIA 04/28/2017 BRENTON BENNETT MD, Ot Z68. 41 BODY MASS INDEX (BMI) 40.0-44.9, ADULT 04/28/2017 BRENTON BENNETT MD, Ot Z79.899 OTHER [facility] (CURRENT) DRUG THERAPY 04/28/2017 ISABEL MAE Amy CAZARES Ot Z12.31 ENCNTR SCREEN MAMMOGRAM FOR MALIGNANT [...] MD, Ot S46.912A STRAIN UNSP MUSC/FASC/TEND AT [facility] A 04/29/2017 REBECCA PEARSON MD Ot V47.5XXA SOCIAL MEDIA COMMUNITY MANAGER INJURED IN [facility] WITH STATNRY 04/30/2017 REBECCA PEARSON MD, Ot E03.9 HYPOTHYROIDISM, UNSPECIFIED 04/30/2017 REBECCA PEARSON MD, Ot E78.00 PURE HYPERCHOLESTEROLEMIA, UNSPECIFIED 04/30/2017 REBECCA PEARSON MD, Ot F32.9 MAJOR DEPRESSIVE DISORDER, SINGLE EPISOD 04/30/2017 REBECCA PEARSON MD, Ot F41.9 ANXIETY DISORDER, UNSPECIFIED 04/30/2017 REBECCA PEARSON MD Ot I10 ESSENTIAL (PRIMARY) HYPERTENSION 04/30/2017 REBECCA PEARSON MD, Ot J45.909 UNSPECIFIED ASTHMA, UNCOMPLICATED 04/30/2017 REBECCA PEARSON MD, Ot K21.9 GASTRO-ESOPHAGEAL REFLUX DISEASE WITHOUT 04/30/2017 REBECCA PEARSON MD, Ot M25.512 PAIN IN LEFT SHOULDER 04/30/2017 REBECCA PEARSON MD, Ot S16.1XXA STRAIN OF MUSCLE, FASCIA AND TENDON AT N 04/30/2017 REBECCA PEARSON MD, Ot S46.912A STRAIN [facility] MUSC/FASC/TEND AT [facility]/ A 04/30/2017 REBECCA PEARSON MD, Ot V47.5XXA SOCIAL MEDIA COMMUNITY MANAGER INJURED IN [facility] WITH STATNRY 06/03/2017 NAN MARIE JARA MD Ot D64.9 ANEMIA, UNSPECIFIED [...] MD Ot F41.9 ANXIETY DISORDER, UNSPECIFIED 06/03/2017 ANN MARIE JARA MD Ot I12.9 HYPERTENSIVE CHRONIC KIDNEY DISEASE W ST 06/03/2017 ANN MARIE JARA MD Ot J45.9 09 UNSPECIFIED ASTHMA, UNCOMPLICATED 06/03/2017 ANN MARIE JARA MD Ot K21.9 GASTRO-ESOPHAGEAL REFLUX DISEASE WITHOUT 06/03/2017 ANN MARIE JARA MD Ot M79.7 FIBROMYALGIA 06/03/2017 ANN [...] D63.1 ANEMIA IN CHRONIC KIDNEY DISEASE 06/26/2017 VIGNESH THAKUR MD S Ot E55.9 VITAMIN D DEFICIENCY, UNSPECIFIED 06/26/2017 VIGNESH THAKUR MD S Ot E61.1 IRON DEFICIENCY 06/26/2017 VIGNESH THAKUR MD S Ot E78.5 HYPERLIPIDEMIA, UNSPECIFIED 06/26/2017 VIGNESH THAKUR MD S Ot E87.2 ACIDOSIS 06/26/2017 VIGNESH THAKUR MD S Ot E87.3 ALKALOSIS 06/26/2017 VIGNESH THAKUR MD S Ot E87.5 HYPERKALEMIA 06/26/2017 BLAZE DOHERTY, AIMEEMED S Ot I12.9 HYPERTENSIVE CHRONIC KIDNEY DISEASE W ST 06/26/2017 BLAZE DOHERTY, VIGNESH S Ot N17.9 ACUTE KIDNEY FAILURE, UNSPECIFIED 06/26/2017 BLAZE DOHERTY, VIGNESH S Ot N18.4 CHRONIC KIDNEY DISEASE, STAGE 4 (SEVERE) 06/26/2017 VIGNESH THAKUR MD S Ot N25.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 06/26/2017 VIGNESH THAKUR MD S Ot R80.9 PROTEINURIA, UNSPECIFIED 06/27/2017 KERA MARINA VIROLOGIST Ot V76.12 OTH SCREEN MAMMO-MALIGN NEOPLASM OF CHARLEI 06/27/2017 ARUNA HERNANDEZ MD Ot 414. 00 CORON ATHEROSCLER NOS TYPE VESSEL, NATIV 06/27/2017 ARUNA HERNANDEZ MD Ot 427. 31 ATRIAL FIBRILLATION 06/27/2017 ARUNA HERNANDEZ MD Ot 786. 50 CHEST PAIN NOS 06/27/2017 BEVERLY WHITMORE DO Ot K22. 5 DIVERTICULUM OF ESOPHAGUS, ACQUIRED 06/27/2017 BEVERLY WHITMORE DO Ot R13. 10 DYSPHAGIA, UNSPECIFIED 06/27/2017 ISABEL MAEP Ot Z12.31 ENCNTR SCREEN MAMMOGRAM FOR MALIGNANT NE 06/27/2017 ISABEL MAEP Ot E55 .9 VITAMIN D DEFICIENCY, UNSPECIFIED 06/27/2017 ISABEL MAEP Ot M85.89 OTH DISRD OF [...] W/O MYELOPATHY OR RADICULOPA 06/27/2017 BRENTON BENNETT MD Ot M53. 3 SACROCOCCYGEAL DISORDERS, NOT ELSEWHERE 06/27/2017 BRENTON BENNETT MD Ot M79. 7 FIBROMYALGIA 06/27/2017 BRENTON BENNETT MD Ot Z68. 41 BODY MASS INDEX (BMI) 40.0-44.9, ADULT 06/27/2017 BRENTON BENENTT MD, Ot Z79.899 OTHER [facility] (CURRENT) DRUG THERAPY 06/27/2017 ISABEL MAE Ot Z12.31 ENCNTR SCREEN MAMMOGRAM FOR MALIGNANT NE 06/27/2017 BLAZE DOHERTY, VIGNESH Proctor Ot D63.1 ANEMIA IN CHRONIC KIDNEY DISEASE 06/27/2017 VIGNESH THAKUR MD Ot E55.9 VITAMIN D DEFICIENCY, UNSPECIFIED 06/27/2017 BLAZE DOHERTY, VIGNESH Proctor Ot E61.1 IRON DEFICIENCY 06/27/2017 BLAZE DOHERTY, VIGNESH Proctor Ot E78.5 HYPERLIPIDEMIA, UNSPECIFIED 06/27/2017 BLAZE DOHERTY, VIGNESH S Ot E87.2 ACIDOSIS 06/27/2017 BLAZE DOHERTY, VIGNESH S Ot E87.3 ALKALOSIS 06/27/2017 BLAZE DOHERTY, VIGNESH S Ot E87.5 HYPERKALEMIA 06/27/2017 BLAZE DOHERTY, VIGNESH S Ot I12.9 HYPERTENSIVE [...] HAWTHORNE Ot I25.10 ATHSCL HEART DISEASE OF [place] CORONARY 06/29/2017 SHANTELLE HAWTHORNE Ot R00.2 PALPITATIONS 06/29/2017 SHANTELLE HAWTHORNE Ot R42 DIZZINESS AND GIDDINESS 07/17/2017 BLAZE DOHERTY, VIGNESH Proctor Ot D63.1 ANEMIA IN CHRONIC KIDNEY DISEASE 07/17/2017 BLAZE DOHERTY, VIGNESH Proctor Ot E55.9 VITAMIN D DEFICIENCY, UNSPECIFIED 07/17/2017 BLAZE DOHERTY, VIGNESH Proctor Ot E61.1 IRON DEFICIENCY 07/17/2017 BLAZE DOHERTY, VIGNESH Proctor Ot E78.5 HYPERLIPIDEMIA, UNSPECIFIED 07/17/2017 BLAZE DOHERTY, VIGNESH S Ot E87.2 ACIDOSIS 07/17/2017 BLAZE DOHERTY, VIGNESH [...] HAWTHORNE Ot I25.10 ATHSCL HEART DISEASE OF [place] CORONARY 07/18/2017 SHANTELLE HAWTHORNE Ot R00.2 PALPITATIONS [...] KIDNEY FAILURE, UNSPECIFIED 07/18/2017 BLAZE DOHERTY, VIGNESH Proctor Ot N18.4 CHRONIC KIDNEY DISEASE, STAGE 4 (SEVERE) 07/18/2017 BLAZE DOHERTY, VIGNESH S Ot N25.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 07/18/2017 VIGNESH THAKUR MD S Ot R80.9 PROTEINURIA, UNSPECIFIED 07/23/2017 BLAZE DOHERTY, VIGNESH S Ot D63.1 ANEMIA IN CHRONIC KIDNEY DISEASE 07/23/2017 VIGNESH THAKUR MD Ot E55.9 VITAMIN D DEFICIENCY, UNSPECIFIED 07/23/2017 VIGNESH THAKUR MD S Ot E61.1 IRON DEFICIENCY 07/23/2017 BLAZE DOHERTY, VIGNESH S Ot E78.5 HYPERLIPIDEMIA, UNSPECIFIED 07/23/2017 VIGNESH THAKUR MD S Ot E87.2 ACIDOSIS 07/23/2017 BLAZE DOHERTY, VIGNESH S Ot E87.3 ALKALOSIS 07/23/2017 VIGNESH THAKUR MD S Ot E87.5 HYPERKALEMIA 07/23/2017 BALZE DOHERTY, VIGNESH S Ot I12.9 HYPERTENSIVE CHRONIC [...] VIGNESH S Ot E61.1 IRON DEFICIENCY 07/25/2017 VIGNESH THAKUR MD S Ot E78.5 HYPERLIPIDEMIA, UNSPECIFIED 07/25/2017 BLAZE DOHERTY, VIGNESH S Ot E87.2 ACIDOSIS 07/25/2017 VIGNESH THAKUR MD S Ot E87.3 ALKALOSIS 07/25/2017 VIGNESH THAKUR MD S Ot E87.5 HYPERKALEMIA 07/25/2017 BLAZE DOHERTY, VIGNESH S Ot I12.9 HYPERTENSIVE CHRONIC KIDNEY DISEASE W ST 07/25/2017 BLAZE DOHERTY, VIGNESH S Ot N17.9 ACUTE KIDNEY FAILURE, UNSPECIFIED 07/25/2017 BLAZE DOHERTY, VIGNESH S Ot N18.4 CHRONIC KIDNEY DISEASE, STAGE 4 (SEVERE) 07/25/2017 VIGNESH THAKUR MD S Ot N25.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 07/25/2017 VIGNESH THAKUR MD S Ot R80.9 PROTEINURIA, UNSPECIFIED 07/30/2017 VIGNESH THAKUR MD S Ot D63.1 ANEMIA IN CHRONIC KIDNEY DISEASE 07/30/2017 VIGNESH THAKUR MD S Ot E55.9 VITAMIN D DEFICIENCY, UNSPECIFIED 07/30/2017 VIGNESH THAKUR MD S Ot E61.1 IRON DEFICIENCY 07/30/2017 VIGNESH THAKUR MD S Ot E78.5 HYPERLIPIDEMIA, UNSPECIFIED 07/30/2017 VIGNESH THAKUR MD S Ot E87.2 ACIDOSIS 07/30/2017 VIGNESH THAKUR MD S Ot E87.3 ALKALOSIS 07/30/2017 VIGNESH THAKUR MD S Ot E87.5 HYPERKALEMIA 07/30/2017 BLAZE DOHERTY, VIGNESH S Ot I12.9 HYPERTENSIVE CHRONIC KIDNEY DISEASE W ST 07/30/2017 VIGNESH THAKUR MD S Ot N17.9 ACUTE KIDNEY FAILURE, UNSPECIFIED 07/30/2017 BLAZE DOHERTY, VIGNESH S Ot N18.4 CHRONIC KIDNEY DISEASE, STAGE 4 (SEVERE) 07/30/2017 VIGNESH THAKUR MD S Ot N25.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 07/30/2017 VIGNESH THAKUR MD S Ot R80.9 PROTEINURIA, UNSPECIFIED 08/08/2017 VIGNESH THAKUR MD S Ot D63.1 ANEMIA IN CHRONIC KIDNEY DISEASE 08/08/2017 VIGNESH THAKUR MD S Ot E55.9 VITAMIN D DEFICIENCY, UNSPECIFIED 08/08/2017 VIGNESH THAKUR MD S Ot E61.1 IRON DEFICIENCY 08/08/2017 BLAZE [...] S Ot E87.3 ALKALOSIS 08/14/2017 BLAZE DOHERTY, VIGNESH S Ot E87.5 HYPERKALEMIA 08/14/2017 BLAZE DOHERTY, VIGNESH S Ot I12.9 HYPERTENSIVE CHRONIC KIDNEY DISEASE W ST 08/14/2017 BLAZE DOHERTY, VIGNESH S Ot N17.9 ACUTE KIDNEY FAILURE, UNSPECIFIED 08/14/2017 BLAZE DOHERTY, VIGNESH S Ot N18.4 CHRONIC KIDNEY DISEASE, STAGE 4 (SEVERE) 08/14/2017 BLAZE DOHERTY, VIGNESH S Ot N25.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 08/14/2017 VIGNESH THAKUR MD S Ot R80.9 PROTEINURIA, UNSPECIFIED 08/16/2017 VIGNESH THAKUR MD S Ot D63.1 ANEMIA IN CHRONIC KIDNEY DISEASE 08/16/2017 VIGNESH THAKUR MD S Ot E55.9 VITAMIN D DEFICIENCY, UNSPECIFIED 08/16/2017 VIGNESH THAKUR MD S Ot E61.1 IRON DEFICIENCY 08/16/2017 VIGNESH THAKUR MD S Ot E78.5 HYPERLIPIDEMIA, UNSPECIFIED 08/16/2017 VIGNESH THAKUR MD S Ot E87.2 ACIDOSIS 08/16/2017 VIGNESH THAKUR MD S Ot E87.3 ALKALOSIS 08/16/2017 VIGNESH THAKUR MD S Ot I12.9 HYPERTENSIVE CHRONIC KIDNEY DISEASE W ST 08/16/2017 VIGNESH THAKUR MD S Ot N17.9 ACUTE KIDNEY FAILURE, UNSPECIFIED 08/16/2017 VIGNESH THAKUR MD S Ot N18.4 CHRONIC KIDNEY DISEASE, STAGE 4 (SEVERE) 08/16/2017 VIGNESH THAKUR MD S Ot N25.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 08/16/2017 VIGNESH THAKUR MD S Ot R80.9 PROTEINURIA, UNSPECIFIED 08/17/2017 YAZ MAENYYovana Reyes VIROLOGIST Ot Z53 .9 PROCEDURE AND TREATMENT NOT CARRIED OUT, 08/28/2017 VIGNESH THAKUR MD S Ot D63.1 ANEMIA IN CHRONIC KIDNEY DISEASE 08/28/2017 VIGNESH THAKUR MD S Ot E55.9 VITAMIN D DEFICIENCY, UNSPECIFIED 08/28/2017 VIGNESH THAKUR MD S Ot E61.1 IRON DEFICIENCY 08/28/2017 VIGNESH THAKUR MD S Ot E78.5 HYPERLIPIDEMIA, UNSPECIFIED 08/28/2017 VIGNESH THAKUR MD S Ot E87.2 ACIDOSIS 08/28/2017 VIGNESH THAKUR MD S Ot E87.3 ALKALOSIS 08/28/2017 VIGNESH THAKUR MD S Ot E87.5 HYPERKALEMIA 08/28/2017 VIGNESH THAKUR MD S Ot I12.9 HYPERTENSIVE CHRONIC KIDNEY DISEASE W ST 08/28/2017 VIGNESH THAKUR MD S Ot N17.9 ACUTE KIDNEY FAILURE, UNSPECIFIED 08/28/2017 BLAZE DOHERTY, VIGNESH S Ot N18.4 CHRONIC KIDNEY DISEASE, STAGE 4 (SEVERE) 08/28/2017 BLAZE DOHERTY, VIGNESH S Ot N25.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 08/28/2017 BLAZE DOHERTY, VIGNESH S Ot R80.9 PROTEINURIA, UNSPECIFIED 09/24/2017 NEW, GE G. RISK MANAGEMENT MANAGER-C Ot N18.4 CHRONIC KIDNEY DISEASE, STAGE 4 (SEVERE) 09/24/2017 NEW, GE G. RISK MANAGEMENT MANAGER-C Ot N18.4 CHRONIC KIDNEY DISEASE, STAGE 4 (SEVERE) 09/25/2017 NEW, GE G. RISK MANAGEMENT MANAGER-C Ot D63.1 ANEMIA IN CHRONIC KIDNEY DISEASE 09/25/2017 NEW, GE G. RISK MANAGEMENT MANAGER-C Ot E55.9 VITAMIN D DEFICIENCY, UNSPECIFIED 09/25/2017 NEW, GE G. RISK MANAGEMENT MANAGER-C Ot E61.1 IRON DEFICIENCY 09/25/2017 NEW, GE G. RISK MANAGEMENT MANAGER-C Ot E78.5 HYPERLIPIDEMIA, UNSPECIFIED 09/25/2017 NEW, GE G. RISK MANAGEMENT MANAGER-C Ot E87.2 ACIDOSIS 09/25/2017 NEW, GE G. RISK MANAGEMENT MANAGER-C Ot E87.3 ALKALOSIS 09/25/2017 NEW, GE G. RISK MANAGEMENT MANAGER-C Ot E87.5 HYPERKALEMIA 09/25/2017 NEW, GE G. RISK MANAGEMENT MANAGER-C Ot I12.9 HYPERTENSIVE CHRONIC KIDNEY DISEASE W ST 09/25/2017 NEW, GE G. RISK MANAGEMENT MANAGER-C Ot N18.4 CHRONIC KIDNEY DISEASE, STAGE 4 (SEVERE) 09/25/2017 NEW, GE G. RISK MANAGEMENT MANAGER-C Ot N25.8 1 SECONDARY HYPERPARATHYROIDISM OF RENAL O 09/25/2017 NEW, GE G. RISK MANAGEMENT MANAGER-C Ot R80.9 PROTEINURIA, UNSPECIFIED 09/25/2017 NEW, GE G. RISK MANAGEMENT MANAGER-C Ot R82.9 0 UNSPECIFIED ABNORMAL FINDINGS IN URINE 09/26/2017 NEW, GE G. RISK MANAGEMENT MANAGER-C Ot D63.1 ANEMIA IN CHRONIC KIDNEY DISEASE 09/26/2017 NEW, GE G. RISK MANAGEMENT MANAGER-C Ot E55.9 VITAMIN D DEFICIENCY, UNSPECIFIED 09/26/2017 NEW, GE G. RISK MANAGEMENT MANAGER-C Ot E61.1 IRON DEFICIENCY 09/26/2017 NEW, GE G. RISK MANAGEMENT MANAGER-C Ot E78.5 HYPERLIPIDEMIA, UNSPECIFIED 09/26/2017 NEW, GE G. RISK MANAGEMENT MANAGER-C Ot E87.2 ACIDOSIS 09/26/2017 NEW, GE G. RISK MANAGEMENT MANAGER-C Ot E87.3 ALKALOSIS 09/26/2017 NEW, GE G. RISK MANAGEMENT MANAGER-C Ot E87.5 HYPERKALEMIA 09/26/2017 NEW, GE G. RISK MANAGEMENT MANAGER-C Ot I12.9 HYPERTENSIVE CHRONIC KIDNEY DISEASE W ST 09/26/2017 NEW, GE G. RISK MANAGEMENT MANAGER-C Ot N18.4 CHRONIC KIDNEY DISEASE, STAGE 4 (SEVERE) 09/26/2017 NEW, GE G. RISK MANAGEMENT MANAGER-C Ot N25.8 1 SECONDARY HYPERPARATHYROIDISM OF RENAL O 09/26/2017 NEW, GE G. RISK MANAGEMENT MANAGER-C Ot R80.9 PROTEINURIA, UNSPECIFIED 09/26/2017 NEW, GE G. RISK MANAGEMENT MANAGER-C Ot R82.9 0 UNSPECIFIED ABNORMAL FINDINGS IN URINE 09/27/2017 NEW, GE G. RISK MANAGEMENT MANAGER-C Ot D63.1 ANEMIA IN CHRONIC KIDNEY DISEASE 09/27/2017 NEW, GE G. RISK MANAGEMENT MANAGER-C Ot E55.9 VITAMIN D DEFICIENCY, UNSPECIFIED 09/27/2017 NEW, GE G. RISK MANAGEMENT MANAGER-C Ot E61.1 IRON DEFICIENCY 09/27/2017 NEW, GE G. RISK MANAGEMENT MANAGER-C Ot E78.5 HYPERLIPIDEMIA, UNSPECIFIED 09/27/2017 NEW, GE G. RISK MANAGEMENT MANAGER-C Ot E87.2 ACIDOSIS 09/27/2017 NEW, GE G. RISK MANAGEMENT MANAGER-C Ot E87.3 ALKALOSIS 09/27/2017 NEW, GE G. RISK MANAGEMENT MANAGER-C Ot E87.5 HYPERKALEMIA 09/27/2017 NEW, GE G. RISK MANAGEMENT MANAGER-C Ot I12.9 HYPERTENSIVE CHRONIC KIDNEY DISEASE W ST 09/27/2017 NEW, GE G. RISK MANAGEMENT MANAGER-C Ot N18.4 CHRONIC KIDNEY DISEASE, STAGE 4 (SEVERE) 09/27/2017 NEW, GE G. RISK MANAGEMENT MANAGER-C Ot N25.8 1 SECONDARY HYPERPARATHYROIDISM OF RENAL O 09/27/2017 NEW, GE G. RISK MANAGEMENT MANAGER-C Ot R80.9 PROTEINURIA, UNSPECIFIED 09/27/2017 NEW, GE G. RISK MANAGEMENT MANAGER-C Ot R82.9 0 UNSPECIFIED ABNORMAL FINDINGS IN URINE 10/10/2017 ZHANE BOSCH APRN Ot Z12.31 ENCNTR SCREEN MAMMOGRAM FOR MALIGNANT NE 10/11/2017 NEW, GE Felicity. RISK MANAGEMENT MANAGER-C Ot D63.1 ANEMIA IN CHRONIC KIDNEY DISEASE 10/11/2017 NEW, GE G. RISK MANAGEMENT MANAGER-C Ot E55.9 VITAMIN D DEFICIENCY, UNSPECIFIED 10/11/2017 NEW, GE G. RISK MANAGEMENT MANAGER-C Ot E61.1 IRON DEFICIENCY 10/11/2017 NEW, GE G. RISK MANAGEMENT MANAGER-C Ot E78.5 HYPERLIPIDEMIA, UNSPECIFIED 10/11/2017 NEW, GE G. RISK MANAGEMENT MANAGER-C Ot E87.2 ACIDOSIS 10/11/2017 NEW, GE G. RISK MANAGEMENT MANAGER-C Ot E87.3 ALKALOSIS 10/11/2017 NEW, GE G. RISK MANAGEMENT MANAGER-C Ot E87.5 HYPERKALEMIA 10/11/2017 NEW, GE G. RISK MANAGEMENT MANAGER-C Ot I12.9 HYPERTENSIVE CHRONIC KIDNEY DISEASE W ST 10/11/2017 NEW, GE G. RISK MANAGEMENT MANAGER-C Ot N18.4 CHRONIC KIDNEY DISEASE, STAGE 4 (SEVERE) 10/11/2017 NEW, GE G. RISK MANAGEMENT MANAGER-C Ot N25.8 1 SECONDARY HYPERPARATHYROIDISM OF RENAL O 10/11/2017 NEW, GE G. RISK MANAGEMENT MANAGER-C Ot R80.9 PROTEINURIA, UNSPECIFIED 10/11/2017 NEW, GE G. RISK MANAGEMENT MANAGER-C Ot R82.9 0 UNSPECIFIED ABNORMAL FINDINGS IN URINE 10/12/2017 BLAZE DOHERTY, MYESHA Ot D50.9 IRON DEFICIENCY ANEMIA, UNSPECIFIED 10/12/2017 BLAZE DOHERTY MYESHA Ot N18.4 CHRONIC KIDNEY DISEASE, STAGE 4 (SEVERE) 10/12/2017 INDIRA THAKUR MDINE Ot D50.9 IRON DEFICIENCY ANEMIA, UNSPECIFIED 10/12/2017 MYESHA THAKUR MD Ot N18.4 CHRONIC KIDNEY DISEASE, STAGE 4 (SEVERE) 10/15/2017 MYESHA THAKUR MD Ot D50.9 IRON DEFICIENCY ANEMIA, UNSPECIFIED 10/15/2017 MYESHA THAKUR MD Ot N18.4 CHRONIC KIDNEY DISEASE, STAGE 4 (SEVERE) 10/15/2017 IDNIRA THAKUR MDINE Ot D50.9 IRON DEFICIENCY ANEMIA, UNSPECIFIED 10/15/2017 MYESHA THAKUR MD Ot N18.4 CHRONIC KIDNEY DISEASE, STAGE 4 (SEVERE) 10/16/2017 ZHANE BOSCH APRN Ot Z12.31 ENCNTR SCREEN MAMMOGRAM FOR MALIGNANT NE 10/18/2017 NEW, GE FelicityJoey RISK MANAGEMENT MANAGER-C Ot D63.1 ANEMIA IN CHRONIC KIDNEY DISEASE 10/18/2017 NEW, GE Felicity. RISK MANAGEMENT MANAGER-C Ot E55.9 VITAMIN D DEFICIENCY, UNSPECIFIED 10/18/2017 NEW, GE G. RISK MANAGEMENT MANAGER-C Ot E61.1 IRON DEFICIENCY 10/18/2017 NEW, GE G. RISK MANAGEMENT MANAGER-C Ot E78.5 HYPERLIPIDEMIA, UNSPECIFIED 10/18/2017 NEW, GE G. RISK MANAGEMENT MANAGER-C Ot E87.2 ACIDOSIS 10/18/2017 NEW, GE G. RISK MANAGEMENT MANAGER-C Ot E87.3 ALKALOSIS 10/18/2017 NEW, GE G. RISK MANAGEMENT MANAGER-C Ot E87.5 HYPERKALEMIA 10/18/2017 NEW, GE G. RISK MANAGEMENT MANAGER-C Ot I12.9 HYPERTENSIVE CHRONIC KIDNEY DISEASE W ST 10/18/2017 NEW, GE G. RISK MANAGEMENT MANAGER-C Ot N18.4 CHRONIC KIDNEY DISEASE, STAGE 4 (SEVERE) 10/18/2017 NEW, GE G. RISK MANAGEMENT MANAGER-C Ot N25.8 1 SECONDARY HYPERPARATHYROIDISM OF RENAL O 10/18/2017 NEW, GE G. RISK MANAGEMENT MANAGER-C Ot R80.9 PROTEINURIA, UNSPECIFIED 10/18/2017 NEW, GE G. RISK MANAGEMENT MANAGER-C Ot R82.9 0 UNSPECIFIED ABNORMAL FINDINGS IN [...] 10/22/2017 MYESHA THAKUR MD, Ot Z79.899 OTHER [facility] (CURRENT) DRUG THERAPY 10/22/2017 MYESHA THAKUR MD, [...] A 10/23/2017 REBECCA PEARSON MD, Ot V47.5XXA SOCIAL MEDIA COMMUNITY MANAGER INJURED IN [facility] WITH [facility] 10/26/2017 KERA [...] DO Ot R13. 10 DYSPHAGIA, UNSPECIFIED 10/26/2017 MADL, ISABEL L VIROLOGIST Ot Z12.31 ENCNTR SCREEN MAMMOGRAM FOR MALIGNANT NE 10/26/2017 ISABEL MAE VIROLOGIST Ot E55 .9 VITAMIN D DEFICIENCY, UNSPECIFIED 10/26/2017 ISABEL MAE VIROLOGIST Ot M85.89 OTH DISRD OF BONE DENSITY AND STRUCTURE, 10/26/2017 JULIAN DOHERTY, RUSTAM Guerra Ot M17.11 UNILATERAL PRIMARY OSTEOARTHRITIS, RIGHT 10/26/2017 RUSTAM JORDAN MD Ot M17.12 UNILATERAL PRIMARY OSTEOARTHRITIS, LEFT 10/26/2017 JULIAN DOHERTY, RUSTAM Guerra Ot M54.16 RADICULOPATHY, LUMBAR REGION 10/26/2017 BRENTON BENNETT MD Ot E66. 01 MORBID (SEVERE) OBESITY DUE TO EXCESS CA 10/26/2017 BRENTON BENNETT MD, Ot M47.816 SPONDYLOSIS W/O MYELOPATHY OR RADICULOPA 10/26/2017 BRENTON BENNETT MD, Ot M53. 3 SACROCOCCYGEAL DISORDERS, NOT ELSEWHERE 10/26/2017 BRENTON BENNETT MD Ot M79. 7 FIBROMYALGIA 10/26/2017 BRENTON BENNETT MD Ot Z68. 41 BODY MASS INDEX (BMI) 40.0-44.9, ADULT 10/26/2017 BRENTON BENNETT MD, Ot Z79.899 OTHER SYSTEMS INTEGRATION MANAGER (CURRENT) DRUG THERAPY 10/26/2017 ISBAEL MAE VIROLOGIST Ot Z12.31 ENCNTR SCREEN MAMMOGRAM FOR MALIGNANT NE 10/26/2017 SHANTELLE HAWTHORNE Ot I07.1 RHEUMATIC TRICUSPID INSUFFICIENCY 10/26/2017 SHANTELLE HAWTHORNE Ot I10 ESSENTIAL (PRIMARY) HYPERTENSION 10/26/2017 SHANTELLE HAWTHORNE Ot I25.10 ATHSCL HEART DISEASE OF [place] CORONARY 10/26/2017 SHANTELLE HAWTHORNE Ot R00.2 PALPITATIONS 10/26/2017 SHANTELLE HAWTHORNE Ot R42 DIZZINESS AND GIDDINESS 10/26/2017 BLAZE DOHERTY, VIGNESH Proctor Ot D63.1 ANEMIA IN CHRONIC KIDNEY DISEASE 10/26/2017 BLAZE DOHERTY, VIGNESH Proctor Ot E55.9 VITAMIN D DEFICIENCY, UNSPECIFIED 10/26/2017 BLAZE DOHERTY, AHMED S Ot E61.1 IRON DEFICIENCY 10/26/2017 BLAZE [...] VIGNESH S Ot E78.5 HYPERLIPIDEMIA, UNSPECIFIED 10/26/2017 VIGNESH THAKUR MD S Ot E87.2 ACIDOSIS 10/26/2017 BLAZE DOHERTY, VIGNESH S Ot E87.3 ALKALOSIS 10/26/2017 BLAZE DOHERTY, VIGNESH S Ot I12.9 HYPERTENSIVE CHRONIC KIDNEY DISEASE W ST 10/26/2017 VIGNESH THAKUR MD S Ot N17.9 ACUTE KIDNEY FAILURE, UNSPECIFIED 10/26/2017 BLAZE DOHERTY, VIGNESH S Ot N18.4 CHRONIC KIDNEY DISEASE, STAGE 4 (SEVERE) 10/26/2017 BLAZE DOHERTY, VIGNESH S Ot N25.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 10/26/2017 VIGNESH THAKUR MD S Ot R80.9 PROTEINURIA, UNSPECIFIED 10/26/2017 BLAZE DOHERTY, VIGNESH S Ot D63.1 ANEMIA IN CHRONIC KIDNEY DISEASE 10/26/2017 BALZE DOHERTY, VIGNESH S Ot E55.9 VITAMIN D DEFICIENCY, UNSPECIFIED 10/26/2017 BLAZE DOHERTY, VIGNESH S Ot E61.1 IRON DEFICIENCY 10/26/2017 BLAZE DOHERTY, VIGNESH S Ot E78.5 HYPERLIPIDEMIA, UNSPECIFIED 10/26/2017 BLAZE DOHERTY, VIGNESH S Ot E87.2 ACIDOSIS 10/26/2017 BLAZE DOHERTY, VIGNESH S Ot E87.3 ALKALOSIS 10/26/2017 BLAZE DOHERTY, VIGNESH Proctor Ot E87.5 HYPERKALEMIA 10/26/2017 BLAZE DOHERTY, VIGNESH S Ot I12.9 HYPERTENSIVE CHRONIC KIDNEY DISEASE W ST 10/26/2017 BLAZE DOHERTY, VIGNESH S Ot N17.9 ACUTE KIDNEY FAILURE, UNSPECIFIED 10/26/2017 BLAZE DOHERTY, VIGNESH S Ot N18.4 CHRONIC KIDNEY DISEASE, STAGE 4 (SEVERE) 10/26/2017 BLAZE DOHERTY, VIGNESH S Ot N25.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 10/26/2017 BLAZE DOHERTY, VIGNESH S Ot R80.9 PROTEINURIA, UNSPECIFIED 10/26/2017 ISABEL MAE VIROLOGIST Ot Z53 .9 PROCEDURE AND TREATMENT NOT CARRIED OUT, 10/26/2017 GE CARPIO RISK MANAGEMENT MANAGER-C Ot D63.1 ANEMIA IN CHRONIC KIDNEY DISEASE 10/26/2017 GE CARPIO RISK MANAGEMENT MANAGER-C Ot E55.9 VITAMIN D DEFICIENCY, UNSPECIFIED 10/26/2017 NEWGE RISK MANAGEMENT MANAGER-C Ot E61.1 IRON DEFICIENCY 10/26/2017 NEW, GE Yepez RISK MANAGEMENT MANAGER-C Ot E78.5 HYPERLIPIDEMIA, UNSPECIFIED 10/26/2017 NEWGE RISK MANAGEMENT MANAGER-C Ot E87.2 ACIDOSIS 10/26/2017 NEWGE RISK MANAGEMENT MANAGER-C Ot E87.3 ALKALOSIS 10/26/2017 NEWGE RISK MANAGEMENT MANAGER-C Ot E87.5 HYPERKALEMIA 10/26/2017 NEWGE RISK MANAGEMENT MANAGER-C Ot I12.9 HYPERTENSIVE CHRONIC KIDNEY DISEASE W ST 10/26/2017 SHIRIN GE BlevinsJoey RISK MANAGEMENT MANAGER-C Ot N18.4 CHRONIC KIDNEY DISEASE, STAGE 4 (SEVERE) 10/26/2017 SHIRIN GE BlevinsJoey RISK MANAGEMENT MANAGER-C Ot N25.8 1 SECONDARY HYPERPARATHYROIDISM OF RENAL O 10/26/2017 SHIRIN GE BlevinsJoey RISK MANAGEMENT MANAGER-C Ot R80.9 PROTEINURIA, UNSPECIFIED 10/26/2017 SHIRIN GE BlevinsJoey RISK MANAGEMENT MANAGER-C Ot R82.9 0 UNSPECIFIED ABNORMAL FINDINGS IN URINE 10/26/2017 ZHANE BOSCH MORTGAGE LOAN COMPUTATION CLERK Ot Z12.31 ENCNTR SCREEN MAMMOGRAM FOR MALIGNANT NE 10/31/2017 CHARLYISABEL Reyes VIROLOGIST Ot J90 PLEURAL EFFUSION, NOT ELSEWHERE CLASSIFI 11/06/2017 ZHANE BOSCH MORTGAGE LOAN COMPUTATION CLERK Ot Z12.31 ENCNTR SCREEN MAMMOGRAM FOR MALIGNANT [...] Ot E55.9 VITAMIN D DEFICIENCY, UNSPECIFIED 01/09/2018 MYESHA THAKUR MD Ot E61.1 IRON DEFICIENCY 01/09/2018 MYESHA THAKUR MD Ot E78.5 HYPERLIPIDEMIA, UNSPECIFIED 01/09/2018 MYESHA THAKUR MD Ot E87.2 ACIDOSIS 01/09/2018 MYESHA THAKUR MD Ot E87.3 ALKALOSIS 01/09/2018 MYESHA THAKUR MD Ot E87.5 HYPERKALEMIA 01/09/2018 MYESHA THAKUR MD Ot I12.9 HYPERTENSIVE CHRONIC KIDNEY DISEASE W ST 01/09/2018 MYESHA THAKUR MD Ot N17.9 ACUTE KIDNEY FAILURE, UNSPECIFIED 01/09/2018 MYESHA THAKUR MD Ot N18.4 CHRONIC KIDNEY DISEASE, STAGE 4 (SEVERE) 01/09/2018 MYESHA THAKUR MD Ot N25.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 01/09/2018 MYESHA THAKUR MD Ot R80.9 PROTEINURIA, UNSPECIFIED 01/16/2018 MYESHA THAKUR MD Ot D63.1 ANEMIA IN CHRONIC KIDNEY DISEASE 01/16/2018 MYESHA THAKUR MD Ot E55.9 VITAMIN D DEFICIENCY, UNSPECIFIED 01/16/2018 MYESHA THAKUR MD Ot E61.1 IRON DEFICIENCY 01/16/2018 MYESHA THAKUR MD Ot E78.5 HYPERLIPIDEMIA, UNSPECIFIED 01/16/2018 MYESHA THAKUR MD Ot E87.2 ACIDOSIS 01/16/2018 MYESHA THAKUR MD Ot E87.3 ALKALOSIS 01/16/2018 MYESHA THAKUR MD Ot E87.5 HYPERKALEMIA 01/16/2018 MYESHA THAKUR MD Ot I12.9 HYPERTENSIVE CHRONIC KIDNEY DISEASE W ST 01/16/2018 MYESHA THAKUR MD Ot N17.9 ACUTE KIDNEY FAILURE, UNSPECIFIED 01/16/2018 MYESHA THAKUR MD Ot N18.4 CHRONIC KIDNEY [...] I10 ESSENTIAL (PRIMARY) HYPERTENSION 02/08/2018 ARUNA HERNANDEZ MD, Ot I25. 10 ATHSCL HEART DISEASE OF [place] CORONARY 02/08/2018 ARUNA HERNANDEZ MD Ot I48. [...] SLEEP APNEA (ADULT) (PEDIATR 02/12/2018 KITA BLACKMON MORTGAGE LOAN COMPUTATION CLERK Ot I48.0 PAROXYSMAL ATRIAL FIBRILLATION 02/12/2018 KITA BLACKMON MORTGAGE LOAN COMPUTATION CLERK Ot J45.909 UNSPECIFIED ASTHMA, UNCOMPLICATED 02/12/2018 KITA BLACKMON MORTGAGE LOAN COMPUTATION CLERK Ot K92.9 DISEASE OF DIGESTIVE SYSTEM, UNSPECIFIED 02/12/2018 KITA BLACKMON MORTGAGE LOAN COMPUTATION CLERK Ot R06.02 SHORTNESS OF BREATH 02/12/2018 KITA BLACKMON MORTGAGE LOAN COMPUTATION CLERK Ot R53.83 OTHER FATIGUE 02/12/2018 KITA BLACKMON MORTGAGE LOAN COMPUTATION CLERK Ot R91.1 SOLITARY PULMONARY NODULE 02/25/2018 KITA BLACKMON APRN Ot G47.30 SLEEP APNEA, UNSPECIFIED 02/26/2018 KITA BLACKMON APRN Ot G47.30 SLEEP APNEA, UNSPECIFIED 02/28/2018 ARUNA HERNANDEZ MD Ot E66. 01 MORBID (SEVERE) OBESITY DUE TO EXCESS CA 02/28/2018 ARUNA HERNANDEZ MD Ot I10 ESSENTIAL (PRIMARY) HYPERTENSION 02/28/2018 ARUNA HERNANDEZ MD Ot I25. 10 ATHSCL HEART DISEASE OF [place] CORONARY 02/28/2018 ARUNA HERNANDEZ MD Ot I48. 0 PAROXYSMAL ATRIAL FIBRILLATION 02/28/2018 ARUNA HERNANDEZ MD Ot M79. 7 FIBROMYALGIA 02/28/2018 ARUNA HERNANDEZ MD Ot R06. 02 SHORTNESS OF BREATH 02/28/2018 ARUNA HERNANDEZ MD Ot R07. 89 OTHER CHEST PAIN 02/28/2018 ARUNA HERNANDEZ MD Ot Z68. 35 BODY MASS INDEX (BMI) 35.0-35.9, ADULT 02/28/2018 KITA BLACKMON APRN Ot G47.33 OBSTRUCTIVE SLEEP APNEA (ADULT) (PEDIATR 02/28/2018 KITA BLACKMON MORTGAGE LOAN COMPUTATION CLERK Ot R91.1 SOLITARY PULMONARY NODULE 02/28/2018 KITA BLACKMON MORTGAGE LOAN COMPUTATION CLERK Ot Z78.9 OTHER SPECIFIED HEALTH STATUS 03/04/2018 OG DE LEON DO Ot R91. 1 SOLITARY PULMONARY NODULE 03/04/2018 KITA BLACKMON MORTGAGE LOAN COMPUTATION CLERK Ot G47.33 OBSTRUCTIVE SLEEP APNEA (ADULT) (PEDIATR 03/04/2018 KITA BLACKMON MORTGAGE LOAN COMPUTATION CLERK Ot R91.1 SOLITARY PULMONARY NODULE 03/04/2018 KITA BLACKMON MORTGAGE LOAN COMPUTATION CLERK Ot Z78.9 OTHER SPECIFIED HEALTH STATUS 03/06/2018 KITA BLACKMON MORTGAGE LOAN COMPUTATION CLERK Ot G47.33 OBSTRUCTIVE SLEEP APNEA (ADULT) (PEDIATR 03/06/2018 KITA BLACKMON MORTGAGE LOAN COMPUTATION CLERK Ot I48.0 PAROXYSMAL ATRIAL FIBRILLATION 03/06/2018 KITA BLACKMON MORTGAGE LOAN COMPUTATION CLERK Ot J45.909 UNSPECIFIED ASTHMA, UNCOMPLICATED 03/06/2018 KITA BLACKMON MORTGAGE LOAN COMPUTATION CLERK Ot K92.9 DISEASE OF DIGESTIVE SYSTEM, UNSPECIFIED 03/06/2018 KITA BLACKMON MORTGAGE LOAN COMPUTATION CLERK Ot R06.02 SHORTNESS OF BREATH 03/06/2018 KITA BLACKMON MORTGAGE LOAN COMPUTATION CLERK Ot R53.83 OTHER FATIGUE 03/06/2018 KITA BLACKMON MORTGAGE LOAN COMPUTATION CLERK Ot R91.1 SOLITARY PULMONARY NODULE 03/12/2018 Ryland DOHERTY, David Garay Z87.448 Hx of cystitis, acute 03/12/2018 David Marcelino MD N3 9.0 UTI's, recurrent 03/28/2018 REBECCA PEARSON MD Ot E03.9 HYPOTHYROIDISM, UNSPECIFIED 03/28/2018 REBECCA PEARSON MD Ot E78.00 PURE HYPERCHOLESTEROLEMIA, UNSPECIFIED 03/28/2018 REBECCA PEARSON MD Ot F32.9 MAJOR DEPRESSIVE DISORDER, SINGLE EPISOD 03/28/2018 REBECCA PEARSON MD Ot F41.9 ANXIETY DISORDER, UNSPECIFIED 03/28/2018 REBECCA PEARSON MD Ot I10 ESSENTIAL (PRIMARY) HYPERTENSION 03/28/2018 REBECCA PEARSON MD Ot J45.909 UNSPECIFIED ASTHMA, UNCOMPLICATED 03/28/2018 REBECCA PEARSON MD Ot K21.9 GASTRO-ESOPHAGEAL REFLUX DISEASE WITHOUT 03/28/2018 REBECCA PEARSON MD Ot M25.512 PAIN IN LEFT SHOULDER 03/28/2018 REBECCA PEARSON MD Ot S16.1XXA STRAIN OF MUSCLE, FASCIA AND TENDON AT N 03/28/2018 REBECCA PEARSON MD Ot S46.912A STRAIN UNSP MUSC/FASC/TEND AT SHLDR/UP A 03/28/2018 LILI DOHERTY, REBECCA Mcgregor Ot V47.5XXA SOCIAL MEDIA COMMUNITY MANAGER INJURED IN [facility] WITH [facility] 05/01/2018 [...] APRN Ot I25.10 ATHSCL HEART DISEASE OF [place] CORONARY 05/08/2018 FELICIANO WAYNE APRN Ot J45.909 UNSPECIFIED ASTHMA, UNCOMPLICATED 05/08/2018 FELICIANO WAYNE APRN Ot K21 .9 GASTRO-ESOPHAGEAL REFLUX DISEASE WITHOUT 05/08/2018 FELICIANO WAYNE APRN Ot R07.89 OTHER CHEST PAIN 05/08/2018 FELICIANO WAYNE APRN Ot Z79 .4 FDC (CURRENT) USE OF INSULIN 05/08/2018 FELICIANO WAYNE APRN Ot Z79.51 [facility] (CURRENT) USE OF INHALED STERO 05/08/2018 FELICIANO WAYNE APRN Ot Z79.82 SYSTEMS INTEGRATION MANAGER (CURRENT) USE OF ASPIRIN 05/08/2018 FELICIANO WAYNE [...] APRN Ot I25.10 ATHSCL HEART DISEASE OF [place] CORONARY 05/10/2018 FELICIANO WAYNE APRN Ot J45.909 UNSPECIFIED ASTHMA, UNCOMPLICATED 05/10/2018 FELICIANO WAYNE APRN Ot K21 .9 GASTRO-ESOPHAGEAL REFLUX DISEASE WITHOUT 05/10/2018 FELICIANO WAYNE APRN Ot R07.89 OTHER CHEST PAIN 05/10/2018 FELICIANO WAYNE APRN Ot Z79 .4 SYSTEMS INTEGRATION MANAGER (CURRENT) USE OF INSULIN 05/10/2018 FELICIANO WAYNE APRN Ot Z79.51 [facility] (CURRENT) USE OF INHALED STERO 05/10/2018 FELICIANO WAYNE APRN Ot Z79.82 SYSTEMS INTEGRATION MANAGER (CURRENT) USE OF ASPIRIN 05/10/2018 FELICIANO WAYNE APRN Ot Z88 .8 ALLERGY STATUS TO [facility] DRUG/MEDS/BIOL SUB 05/10/2018 FELICIANO WAYNE APRN Ot Z96.652 PRESENCE OF LEFT ARTIFICIAL KNEE JOINT 05/21/2018 KITA BLACKMON APRN Ot J45.909 UNSPECIFIED ASTHMA, UNCOMPLICATED 05/21/2018 KITA BLACKMON APRN Ot R91.1 SOLITARY PULMONARY NODULE 05/29/2018 ARUNA HERNANDEZ MD Ot E03. 9 HYPOTHYROIDISM, UNSPECIFIED 05/29/2018 ARUNA HERNANDEZ MD Ot E66. 01 MORBID [...] Ot I25. 10 ATHSCL HEART DISEASE OF [place] CORONARY 05/29/2018 ARUNA HERNANDEZ MD Ot I48. 0 PAROXYSMAL [...] J45.909 UNSPECIFIED ASTHMA, UNCOMPLICATED 05/30/2018 KITA BLACKMON MORTGAGE LOAN COMPUTATION CLERK Ot R91.1 SOLITARY PULMONARY NODULE 05/30/2018 ARUNA [...] Ot I25. 10 ATHSCL HEART DISEASE OF [place] CORONARY 05/30/2018 ARUNA HERNANDEZ MD Ot I48. [...] DEFICIENCY, UNSPECIFIED 06/12/2018 ISABEL MAE Ot M85.89 OTH DISRD OF BONE DENSITY AND STRUCTURE, 06/12/2018 RUSTAM JORDAN MD, Ot M17.11 UNILATERAL PRIMARY OSTEOARTHRITIS, RIGHT 06/12/2018 RUSTAM JORDAN MD, Ot M17.12 UNILATERAL PRIMARY OSTEOARTHRITIS, LEFT 06/12/2018 RUSTAM JORDAN MD Ot M54.16 RADICULOPATHY, LUMBAR REGION 06/12/2018 BRENTON BENNETT MD, Ot E66. 01 MORBID (SEVERE) OBESITY DUE TO EXCESS CA 06/12/2018 BRENTON BENNETT MD, Ot M47.816 SPONDYLOSIS W/O MYELOPATHY OR RADICULOPA 06/12/2018 BRENTON BENNETT MD, Ot M53. 3 SACROCOCCYGEAL DISORDERS, NOT ELSEWHERE 06/12/2018 BRENTON BENNETT MD, Ot M79. 7 FIBROMYALGIA 06/12/2018 BRENTON BENNETT MD, Ot Z68. 41 BODY MASS INDEX (BMI) 40.0-44.9, ADULT 06/12/2018 BRENTON BENNETT MD, Ot Z79.899 OTHER SYSTEMS INTEGRATION MANAGER (CURRENT) DRUG THERAPY 06/12/2018 ISABEL MAE Ot Z12.31 ENCNTR SCREEN MAMMOGRAM FOR MALIGNANT NE 06/12/2018 SHANTELLE HAWTHORNE Ot I07.1 RHEUMATIC TRICUSPID INSUFFICIENCY 06/12/2018 SHANTELLE HAWTHORNE Ot I10 ESSENTIAL (PRIMARY) HYPERTENSION 06/12/2018 SHANTELLE HAWTHORNE Ot I25.10 ATHSCL HEART DISEASE OF [place] CORONARY 06/12/2018 SHANTELLE HAWTHORNE Ot R00.2 PALPITATIONS 06/12/2018 SHANTELLE HAWTHORNE Ot R42 DIZZINESS AND GIDDINESS 06/12/2018 BLAZE DOHERTY, VIGNESH S Ot D63.1 ANEMIA IN CHRONIC KIDNEY DISEASE 06/12/2018 BLAZE DOHERTY, VIGNESH S Ot E55.9 VITAMIN D DEFICIENCY, UNSPECIFIED 06/12/2018 BLAZE DOHERTY, VIGNESH S Ot E61.1 IRON DEFICIENCY 06/12/2018 BLAZE DOHERTY, VIGNESH S Ot E78.5 HYPERLIPIDEMIA, UNSPECIFIED 06/12/2018 BLAZE DOHERTY, VIGNESH S Ot E87.2 ACIDOSIS 06/12/2018 BLAZE DOHERTY, VIGNESH S Ot E87.3 ALKALOSIS 06/12/2018 BLAZE DOHRETY, VIGNESH S Ot E87.5 HYPERKALEMIA 06/12/2018 BLAZE [...] SECONDARY HYPERPARATHYROIDISM OF RENAL O 06/12/2018 VIGNESH THAKRU MD S Ot R80.9 PROTEINURIA, UNSPECIFIED 06/12/2018 [...] CHRONIC KIDNEY DISEASE, STAGE 4 (SEVERE) 06/12/2018 VIGNESH THAKUR MD S Ot N25.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 06/12/2018 VIGNESH THAKUR MD S Ot R80.9 PROTEINURIA, UNSPECIFIED 06/12/2018 ISABEL MAE Ot Z53 .9 PROCEDURE AND TREATMENT NOT CARRIED OUT, 06/12/2018 NEW, GE G. RISK MANAGEMENT MANAGER-C Ot D63.1 ANEMIA IN CHRONIC KIDNEY DISEASE 06/12/2018 NEW, GE BlevinsJoey RISK MANAGEMENT MANAGER-C Ot E55.9 VITAMIN D DEFICIENCY, UNSPECIFIED 06/12/2018 NEW, GE Yepez RISK MANAGEMENT MANAGER-C Ot E61.1 IRON DEFICIENCY 06/12/2018 NEW, GE Yepez RISK MANAGEMENT MANAGER-C Ot E78.5 HYPERLIPIDEMIA, UNSPECIFIED 06/12/2018 NEW, GE BlevinsJoey RISK MANAGEMENT MANAGER-C Ot E87.2 ACIDOSIS 06/12/2018 NEW, GE BlevinsJoey RISK MANAGEMENT MANAGER-C Ot E87.3 ALKALOSIS 06/12/2018 NEW, GE BlevinsJoey RISK MANAGEMENT MANAGER-C Ot E87.5 HYPERKALEMIA 06/12/2018 NEW, GE BlevinsJoey RISK MANAGEMENT MANAGER-C Ot I12.9 HYPERTENSIVE CHRONIC KIDNEY DISEASE W ST 06/12/2018 NEW, GE Yepez RISK MANAGEMENT MANAGER-C Ot N18.4 CHRONIC KIDNEY DISEASE, STAGE 4 (SEVERE) 06/12/2018 NEW, GE Yepez RISK MANAGEMENT MANAGER-C Ot N25.8 1 SECONDARY HYPERPARATHYROIDISM OF RENAL O 06/12/2018 NEW, GE Blevins. RISK MANAGEMENT MANAGER-C Ot R80.9 PROTEINURIA, UNSPECIFIED 06/12/2018 NEW, GE Blevins. RISK MANAGEMENT MANAGER-C Ot R82.9 0 UNSPECIFIED ABNORMAL FINDINGS IN URINE 06/12/2018 ZHANE BOSCH APRN Ot Z12.31 ENCNTR SCREEN MAMMOGRAM FOR MALIGNANT NE 06/12/2018 ISABEL MAE Ot J90 PLEURAL EFFUSION, NOT ELSEWHERE CLASSIFI 06/12/2018 BLAZE DOHERTY, MYESHA Ot D63.1 ANEMIA IN CHRONIC KIDNEY DISEASE 06/12/2018 BLAZE DOHERTY, MYESHA Ot E55.9 VITAMIN D DEFICIENCY, UNSPECIFIED 06/12/2018 BLAZE DOHERTY, MYESHA Ot E61.1 IRON DEFICIENCY 06/12/2018 MYESHA THAKUR MD Ot E78.5 HYPERLIPIDEMIA, UNSPECIFIED 06/12/2018 MYESHA THAKUR MD Ot E87.2 ACIDOSIS 06/12/2018 MYESHA THAKUR MD Ot E87.3 ALKALOSIS 06/12/2018 MYESHA THAKUR MD Ot E87.5 HYPERKALEMIA 06/12/2018 MYESHA THAKUR MD Ot I12.9 HYPERTENSIVE CHRONIC KIDNEY DISEASE W ST 06/12/2018 MYESHA THAKUR MD Ot N17.9 ACUTE KIDNEY FAILURE, UNSPECIFIED 06/12/2018 MYESHA THAKUR MD, Ot N18.4 CHRONIC KIDNEY [...] Ot I25. 10 ATHSCL HEART DISEASE OF [place] CORONARY 06/12/2018 ARUNA HERNANDEZ MD Ot I48. 0 PAROXYSMAL ATRIAL FIBRILLATION 06/12/2018 ARUNA HERNANDEZ MD Ot M79. 7 FIBROMYALGIA 06/12/2018 ARUNA HERNANDEZ MD Ot R06. 02 SHORTNESS OF BREATH 06/12/2018 ARUNA HERNANDEZ MD Ot R07. 89 OTHER CHEST PAIN 06/12/2018 ARUNA HERNANDEZ MD Ot Z68. 35 BODY MASS INDEX (BMI) 35.0-35.9, ADULT 06/12/2018 OG DE LEON DO Ot R91. 1 SOLITARY PULMONARY NODULE 06/12/2018 [...] Ot R80.9 PROTEINURIA, UNSPECIFIED 06/12/2018 KITA BLACKMON APRN Ot G47.33 OBSTRUCTIVE SLEEP APNEA (ADULT) (PEDIATR 06/12/2018 KITA BLACKMON APRN Ot I48.0 PAROXYSMAL ATRIAL FIBRILLATION 06/12/2018 KITA BLACKMON APRN Ot J45.909 UNSPECIFIED ASTHMA, UNCOMPLICATED 06/12/2018 KITA BLACKMON APRN Ot K92.9 DISEASE OF DIGESTIVE SYSTEM, UNSPECIFIED 06/12/2018 KITA BLACKMON APRN Ot R06.02 SHORTNESS OF BREATH 06/12/2018 KITA BLACKMON APRN Ot R53.83 OTHER FATIGUE 06/12/2018 KITA BLACKMON APRN Ot R91.1 SOLITARY PULMONARY NODULE 06/12/2018 KITA BLACKMON APRN Ot J45.909 UNSPECIFIED ASTHMA, UNCOMPLICATED 06/12/2018 KITA BLACKMON APRN Ot R91.1 SOLITARY PULMONARY NODULE 06/12/2018 RUSTAM [...] J32 .9 CHRONIC SINUSITIS, UNSPECIFIED 07/10/2018 RUSTAM OJY MD Ot J34 .2 DEVIATED NASAL SEPTUM 07/17/2018 DAVID DOHERTY, ARUNA Hernandez Ot 414. 00 CORON ATHEROSCLER NOS TYPE VESSEL, NATIV 07/17/2018 ARUNA HERNANDEZ MD Ot 427. 31 ATRIAL FIBRILLATION 07/17/2018 ARUNA HERNANDEZ MD Ot 786. 50 CHEST PAIN NOS 07/17/2018 BEVERLY WHITMORE DO Ot K22. 5 DIVERTICULUM OF ESOPHAGUS, ACQUIRED 07/17/2018 BEVERLY WHITMORE DO Ot R13. 10 DYSPHAGIA, UNSPECIFIED 07/17/2018 ISABEL MAEP Ot Z12.31 ENCNTR SCREEN MAMMOGRAM FOR MALIGNANT NE 07/17/2018 ISABEL MAE VIROLOGIST Ot E55 .9 VITAMIN D DEFICIENCY, UNSPECIFIED 07/17/2018 ISABEL MAEP Ot M85.89 OTH DISRD OF BONE DENSITY AND STRUCTURE, 07/17/2018 RUSTAM JORDAN MD Ot M17.11 UNILATERAL PRIMARY OSTEOARTHRITIS, RIGHT 07/17/2018 RUSTAM JORDAN MD Ot M17.12 UNILATERAL PRIMARY OSTEOARTHRITIS, LEFT 07/17/2018 RUSTAM JORDAN MD Ot M54.16 RADICULOPATHY, LUMBAR REGION 07/17/2018 BRENTON BENNETT MD Ot E66. 01 MORBID (SEVERE) OBESITY DUE TO EXCESS CA 07/17/2018 BRENTON BENNETT MD Ot M47.816 SPONDYLOSIS W/O MYELOPATHY OR RADICULOPA 07/17/2018 BRENTON BENNETT MD, Ot M53. 3 SACROCOCCYGEAL DISORDERS, NOT ELSEWHERE 07/17/2018 BRENTON BENNETT MD Ot M79. 7 FIBROMYALGIA 07/17/2018 BRENTON BENNETT MD, Ot Z68. 41 BODY MASS INDEX (BMI) 40.0-44.9, ADULT 07/17/2018 BRENTON BENNETT MD, Ot Z79.899 OTHER [facility] (CURRENT) DRUG THERAPY 07/17/2018 ISABEL MAE Ot Z12.31 ENCNTR SCREEN MAMMOGRAM FOR MALIGNANT NE 07/17/2018 SHANTELLE HAWTHORNE Ot I07.1 RHEUMATIC TRICUSPID INSUFFICIENCY 07/17/2018 SHANTELLE HAWTHORNE Ot I10 ESSENTIAL (PRIMARY) HYPERTENSION 07/17/2018 SHANTELLE HAWTHORNE Ot I25.10 ATHSCL HEART DISEASE OF [place] CORONARY 07/17/2018 SHANTELLE HAWTHORNE Ot R00.2 PALPITATIONS 07/17/2018 GREG PASCAL, SHANTELLE Zarco Ot R42 DIZZINESS AND GIDDINESS 07/17/2018 BLAZE DOHERTY, VIGNESH Proctor Ot D63.1 ANEMIA IN CHRONIC KIDNEY DISEASE 07/17/2018 BLAZE DOHERTY, VIGNESH Proctor Ot E55.9 VITAMIN D DEFICIENCY, UNSPECIFIED 07/17/2018 [...] N25.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 07/17/2018 VIGNESH THAKUR MD S Ot R80.9 PROTEINURIA, UNSPECIFIED 07/17/2018 BLAZE DOHERTY, VIGNESH S Ot D63.1 ANEMIA IN CHRONIC KIDNEY DISEASE 07/17/2018 VIGNESH THAKUR MD S Ot E55.9 VITAMIN D DEFICIENCY, UNSPECIFIED 07/17/2018 VIGNESH THAKUR MD S Ot E61.1 IRON DEFICIENCY 07/17/2018 BLAZE DOHERTY, VIGNESH S Ot E78.5 HYPERLIPIDEMIA, UNSPECIFIED 07/17/2018 VIGNESH THAKUR MD S Ot E87.2 ACIDOSIS 07/17/2018 VIGNESH THAKUR MD S Ot E87.3 ALKALOSIS 07/17/2018 VIGNESH THAKUR MD S Ot E87.5 HYPERKALEMIA 07/17/2018 BLAZE DOHERTY, VIGNESH S Ot I12.9 HYPERTENSIVE CHRONIC KIDNEY DISEASE W ST 07/17/2018 VIGNESH THAKUR MD S Ot N17.9 ACUTE KIDNEY FAILURE, UNSPECIFIED 07/17/2018 VIGNESH THAKUR MD S Ot N18.4 CHRONIC KIDNEY DISEASE, STAGE 4 (SEVERE) 07/17/2018 VIGNESH THAKUR MD S Ot N25.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 07/17/2018 BLAEZ DOHERTY, VIGNESH S Ot R80.9 PROTEINURIA, UNSPECIFIED 07/17/2018 ISABEL MAE VIROLOGIST Ot Z53 .9 PROCEDURE AND TREATMENT NOT CARRIED OUT, 07/17/2018 GE CARPIO NP-C Ot D63.1 ANEMIA IN CHRONIC KIDNEY DISEASE 07/17/2018 GE CARPIO NP-C Ot E55.9 VITAMIN D DEFICIENCY, UNSPECIFIED 07/17/2018 GE CARPIO NP-C Ot E61.1 IRON DEFICIENCY 07/17/2018 NEW, GE G. RISK MANAGEMENT MANAGER-C Ot E78.5 HYPERLIPIDEMIA, UNSPECIFIED 07/17/2018 NEW, GE BlevinsJoey RISK MANAGEMENT MANAGER-C Ot E87.2 ACIDOSIS 07/17/2018 NEW, GE GJoey RISK MANAGEMENT MANAGER-C Ot E87.3 ALKALOSIS 07/17/2018 NEW, GE BlevinsJoey RISK MANAGEMENT MANAGER-C Ot E87.5 HYPERKALEMIA 07/17/2018 NEW, GE BlevinsJoey RISK MANAGEMENT MANAGER-C Ot I12.9 HYPERTENSIVE CHRONIC KIDNEY DISEASE W ST 07/17/2018 NEW, GE BlevinsJoey RISK MANAGEMENT MANAGER-C Ot N18.4 CHRONIC KIDNEY DISEASE, STAGE 4 (SEVERE) 07/17/2018 NEW, GE BlevinsJoey RISK MANAGEMENT MANAGER-C Ot N25.8 1 SECONDARY HYPERPARATHYROIDISM OF RENAL O 07/17/2018 NEW, GE BlevinsJoey RISK MANAGEMENT MANAGER-C Ot R80.9 PROTEINURIA, UNSPECIFIED 07/17/2018 NEW, GE BlevinsJoey RISK MANAGEMENT MANAGER-C Ot R82.9 0 UNSPECIFIED ABNORMAL FINDINGS IN URINE 07/17/2018 ZHANE BOSCH APRN Ot Z12.31 ENCNTR SCREEN MAMMOGRAM FOR MALIGNANT NE 07/17/2018 ISABEL MAE VIROLOGIST Ot J90 PLEURAL EFFUSION, NOT ELSEWHERE CLASSIFI [...] MYESHA THAKUR MD Ot E87.5 HYPERKALEMIA 07/17/2018 INDIRA THAKUR MDINE Ot I12.9 HYPERTENSIVE CHRONIC KIDNEY DISEASE W ST 07/17/2018 MYESHA THAKUR MD Ot N17.9 ACUTE KIDNEY FAILURE, UNSPECIFIED 07/17/2018 MYESHA THAKUR MD Ot N18.4 CHRONIC KIDNEY DISEASE, STAGE 4 (SEVERE) 07/17/2018 ABOMYESHA FERNÁNDEZ MD, Ot N25.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 07/17/2018 MYESHA THAKUR MD Ot R80.9 PROTEINURIA, UNSPECIFIED 07/17/2018 ARUNA HERNANDEZ MD Ot E66. 01 MORBID (SEVERE) OBESITY DUE TO EXCESS CA 07/17/2018 ARUNA HERNANDEZ MD, Ot I10 ESSENTIAL (PRIMARY) HYPERTENSION 07/17/2018 ARUNA HERNANDEZ MD Ot I25. 10 ATHSCL HEART DISEASE OF [place] CORONARY 07/17/2018 ARUNA HERNANDEZ MD Ot I48. 0 PAROXYSMAL ATRIAL FIBRILLATION 07/17/2018 ARUNA HERNANDEZ MD Ot M79. 7 FIBROMYALGIA 07/17/2018 ARUNA HERNANDEZ MD Ot R06. 02 SHORTNESS OF BREATH 07/17/2018 ARUNA HERNANDEZ MD Ot R07. 89 OTHER CHEST PAIN 07/17/2018 ARUNA HERNANDEZ MD, Ot Z68. 35 BODY MASS INDEX (BMI) 35.0-35.9, ADULT 07/17/2018 OG DE LEON DO Ot R91. 1 SOLITARY PULMONARY NODULE 07/17/2018 MYEHSA THAKUR MD, Ot D63.1 ANEMIA IN CHRONIC [...] DISEASE, STAGE 4 (SEVERE) 07/17/2018 MYESHA THAKUR MD, Ot N25.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 07/17/2018 BLAZE DOHERTY, MYESHA Ot R80.9 PROTEINURIA, UNSPECIFIED 07/17/2018 KITA BLACKMON APRN Ot G47.33 OBSTRUCTIVE SLEEP APNEA (ADULT) (PEDIATR 07/17/2018 KITA BLACKMON MORTGAGE LOAN COMPUTATION CLERK Ot I48.0 PAROXYSMAL ATRIAL FIBRILLATION 07/17/2018 KITA BLACKMON MORTGAGE LOAN COMPUTATION CLERK Ot J45.909 UNSPECIFIED ASTHMA, UNCOMPLICATED 07/17/2018 KITA BLACKMON MORTGAGE LOAN COMPUTATION CLERK Ot K92.9 DISEASE OF DIGESTIVE SYSTEM, UNSPECIFIED 07/17/2018 KITA BLACKMON MORTGAGE LOAN COMPUTATION CLERK Ot R06.02 SHORTNESS OF BREATH 07/17/2018 KITA BLACKMON MORTGAGE LOAN COMPUTATION CLERK Ot R53.83 OTHER FATIGUE 07/17/2018 KITA BLACKMON [...] SPONDYLS W/O MYELOPATHY OR RADICULOPATHY 07/17/2018 RUSTAM SANABRIA DO Ot M51.37 OTHER INTERVERTEBRAL [...] APRN Ot E87.2 ACIDOSIS 07/18/2018 BRENTON TRAN APRN Ot E87.3 ALKALOSIS 07/18/2018 BRENTON TRAN MORTGAGE LOAN COMPUTATION CLERK Ot E87.5 HYPERKALEMIA 07/18/2018 BRENTON TRAN MORTGAGE LOAN COMPUTATION CLERK Ot I12.9 HYPERTENSIVE CHRONIC KIDNEY DISEASE W ST 07/18/2018 BRENTON TRAN MORTGAGE LOAN COMPUTATION CLERK Ot N17.9 ACUTE KIDNEY FAILURE, UNSPECIFIED 07/18/2018 BRENTON TRAN MORTGAGE LOAN COMPUTATION CLERK Ot N18.4 CHRONIC KIDNEY DISEASE, STAGE 4 (SEVERE) 07/18/2018 BRENTON TRAN MORTGAGE LOAN COMPUTATION CLERK Ot N25.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 07/18/2018 BRENTON TRAN MORTGAGE LOAN COMPUTATION CLERK Ot R80.9 PROTEINURIA, UNSPECIFIED 07/29/2018 ZHANE BOSCH MORTGAGE LOAN COMPUTATION CLERK Ot M19.011 PRIMARY OSTEOARTHRITIS, RIGHT SHOULDER 07/29/2018 [...] MD Ot I25.10 ATHSCL HEART DISEASE OF [place] CORONARY 08/05/2018 GHULAM BURNETT MD Ot I38 [...] APRN Ot R80.9 PROTEINURIA, UNSPECIFIED 08/13/2018 KITA BLACKMON APRN Ot G47.33 OBSTRUCTIVE SLEEP [...] N25.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 08/15/2018 DOBRENTON SPENCE Clare MORTGAGE LOAN COMPUTATION CLERK Ot R80.9 PROTEINURIA, UNSPECIFIED 08/15/2018 ZHANE BOSCH MORTGAGE LOAN COMPUTATION CLERK Ot M19.011 PRIMARY OSTEOARTHRITIS, RIGHT SHOULDER 08/15/2018 ZHANE BOSCH MORTGAGE LOAN COMPUTATION CLERK Ot M25.711 OSTEOPHYTE, RIGHT SHOULDER 08/20/2018 David Marcelino MD E66.01 Obesity Class III (BMI >=40) 08/20/2018 David Marcelino MD Z68.41 BMI 40-44.9 08/29/2018 ZHANE BOSCH MORTGAGE LOAN COMPUTATION CLERK Ot M19.011 PRIMARY OSTEOARTHRITIS, RIGHT SHOULDER 08/29/2018 ZHANE BOSCH MORTGAGE LOAN COMPUTATION CLERK Ot M25.711 OSTEOPHYTE, RIGHT SHOULDER 09/03/2018 VIOLETTE BLACKMONINE Judson MORTGAGE LOAN COMPUTATION CLERK Ot G47.33 OBSTRUCTIVE SLEEP APNEA (ADULT) (PEDIATR 09/03/2018 VIOLETTE BLACKMONINE Judson MORTGAGE LOAN COMPUTATION CLERK Ot I48.0 PAROXYSMAL ATRIAL FIBRILLATION 09/03/2018 VIOLETTE BLACKMONINE Judson MORTGAGE LOAN COMPUTATION CLERK Ot J45.909 UNSPECIFIED ASTHMA, UNCOMPLICATED 09/03/2018 VIOLETTE BLACKMONINE E MORTGAGE LOAN COMPUTATION CLERK Ot K92.9 DISEASE OF DIGESTIVE SYSTEM, UNSPECIFIED 09/03/2018 VIOLETTE BLACKMONINE Judson MORTGAGE LOAN COMPUTATION CLERK Ot R59.0 LOCALIZED ENLARGED LYMPH NODES 09/03/2018 VIOLETTE BLACKMONINE Judson MORTGAGE LOAN COMPUTATION CLERK Ot R91.1 SOLITARY PULMONARY NODULE 09/03/2018 VIOLETTE BLACKMONINE Judson MORTGAGE LOAN COMPUTATION CLERK Ot Z78.9 OTHER SPECIFIED HEALTH STATUS 2018 VIOLETTE BLACKMONINE Judson MORTGAGE LOAN COMPUTATION CLERK Ot G47.33 OBSTRUCTIVE SLEEP APNEA (ADULT) (PEDIATR 2018 LORRI KITA E MORTGAGE LOAN COMPUTATION CLERK Ot I48.0 PAROXYSMAL ATRIAL FIBRILLATION 2018 VIOLETTE BLACKMONINE Judson MORTGAGE LOAN COMPUTATION CLERK Ot J45.909 UNSPECIFIED ASTHMA, UNCOMPLICATED 2018 LORRI KITA E MORTGAGE LOAN COMPUTATION CLERK Ot K92.9 DISEASE OF DIGESTIVE SYSTEM, UNSPECIFIED 2018 VIOLETTE BLACKMONINE E MORTGAGE LOAN COMPUTATION CLERK Ot R59.0 LOCALIZED ENLARGED LYMPH NODES 2018 VIOLETTE BLACKMONINE Judson MORTGAGE LOAN COMPUTATION CLERK Ot R91.1 SOLITARY PULMONARY NODULE 2018 VIOLETTE BLACKMONINE Judson MORTGAGE LOAN COMPUTATION CLERK Ot Z78.9 OTHER SPECIFIED HEALTH STATUS 09/18/2018 ZHANE BOSCH MORTGAGE LOAN COMPUTATION CLERK Ot M25.511 PAIN IN RIGHT SHOULDER 10/04/2018 ZHANE BOSCH MORTGAGE LOAN COMPUTATION CLERK Ot M25.511 PAIN IN RIGHT SHOULDER 10/09/2018 ZHANE BOSCH MORTGAGE LOAN COMPUTATION CLERK Ot M25.511 PAIN IN RIGHT SHOULDER 10/16/2018 ZHANE BOSCH MORTGAGE LOAN COMPUTATION CLERK Ot M25.511 PAIN IN RIGHT SHOULDER 10/26/2018 [...] MD Ot I25.10 ATHSCL HEART DISEASE OF [place] CORONARY 10/26/2018 ALEXANDRE ANTON MD Ot J45.909 [...] SMO 10/26/2018 ALEXANDRE ANTON MD Ot Z79.51 SYSTEMS INTEGRATION MANAGER (CURRENT) USE OF INHALED STERO 10/26/2018 ALEXANDRE ANTON MD Ot Z79.82 FDC (CURRENT) USE OF ASPIRIN 10/26/2018 ALEXANDRE ANTON MD Ot Z80 .8 FAMILY HISTORY OF MALIGNANT NEOPLASM OF 10/26/2018 ALEXANDRE ANTON MD, Ot Z82.49 FAMILY HX OF ISCHEM HEART DIS AND OTH DI 10/26/2018 ALEXANDRE ANTON MD, Ot Z88 .2 ALLERGY STATUS TO SULFONAMIDES STATUS 10/26/2018 ALEXANDRE ANTON MD, Ot Z88 .6 ALLERGY STATUS TO ANALGESIC AGENT STATUS 10/26/2018 AELXANDRE ANTON MD, Ot Z88 .8 ALLERGY STATUS TO OTH DRUG/MEDS/BIOL SUB 10/26/2018 ALEXANDRE ANTON MD Ot Z90.49 ACQUIRED ABSENCE [...] DEPRESSIVE DISORDER, SINGLE EPISOD 11/01/2018 ALEXANDRE ANTON MD Ot F41 .9 ANXIETY DISORDER, UNSPECIFIED 11/01/2018 ALEXANDRE ANTON MD Ot G43.909 MIGRAINE, UNSP, NOT INTRACTABLE, WITHOUT 11/01/2018 ALEXANDRE ANTON MD Ot G47.30 SLEEP APNEA, UNSPECIFIED 11/01/2018 ALEXANDRE ANTON MD Ot I10 ESSENTIAL (PRIMARY) HYPERTENSION 11/01/2018 ALEXANDRE NATON MD Ot I25.10 ATHSCL HEART DISEASE OF [place] CORONARY 11/01/2018 ALEXANDRE ANTON MD Ot J45.909 UNSPECIFIED ASTHMA, UNCOMPLICATED 11/01/2018 ALEXANDRE ANTON MD Ot K21 .9 GASTRO-ESOPHAGEAL REFLUX DISEASE WITHOUT 11/01/2018 ALEXANDRE ANTON MD Ot M79 .7 FIBROMYALGIA 11/01/2018 ALEXANDRE ANTON MD Ot S80.12XA CONTUSION OF LEFT LOWER LEG, INITIAL ENC 11/01/2018 ALEXANDRE ANTON MD Ot S89.92XA UNSPECIFIED INJURY OF LEFT LOWER LEG, IN 11/01/2018 ALEXANDRE ANTON MD Ot Z77.22 CNTCT W AND EXPSR TO ENVIRON TOBACCO SMO 11/01/2018 ALEXANDRE ANTON MD, Ot Z79.51 FDC (CURRENT) USE OF INHALED STERO 11/01/2018 ALEXANDRE ANTON MD, Ot Z79.82 FDC (CURRENT) USE OF ASPIRIN 11/01/2018 ALEXANDRE ANTON MD Ot Z80 .8 FAMILY HISTORY OF MALIGNANT NEOPLASM OF 11/01/2018 ALEXANDRE ANTON MD, Ot Z82.49 FAMILY HX OF ISCHEM HEART DIS AND OTH DI 11/01/2018 ALEXANDRE ANTON MD, Ot Z88 .2 ALLERGY STATUS TO SULFONAMIDES STATUS 11/01/2018 ALEXANDRE ANTON MD, Ot Z88 .6 ALLERGY STATUS TO ANALGESIC AGENT STATUS 11/01/2018 ALEXANDRE ANTON MD, Ot Z88 .8 ALLERGY STATUS TO OTH DRUG/MEDS/BIOL SUB 11/01/2018 ALEXANDRE ANTON MD, Ot Z90.49 ACQUIRED ABSENCE [...] MD Ot I25.10 ATHSCL HEART DISEASE OF [place] CORONARY 11/02/2018 ALEXANDRE ANTON MD Ot J45.909 UNSPECIFIED ASTHMA, UNCOMPLICATED 11/02/2018 ALEXANDRE ANTON MD Ot K21 .9 GASTRO-ESOPHAGEAL REFLUX DISEASE WITHOUT 11/02/2018 ALEXANDRE ANTON MD Ot M79 .7 FIBROMYALGIA 11/02/2018 ODALEXANDRE RODRIGUEZ MD, Ot S80.12XA CONTUSION OF LEFT LOWER LEG, INITIAL ENC 11/02/2018 LAEXANDRE ANTON MD, Ot S89.92XA UNSPECIFIED INJURY OF LEFT LOWER LEG, IN 11/02/2018 ALEXANDRE ANTON MD, Ot Z77.22 CNTCT W AND EXPSR TO ENVIRON TOBACCO SMO 11/02/2018 ALEXANDRE ANTON MD, Ot Z79.51 SYSTEMS INTEGRATION MANAGER (CURRENT) USE OF INHALED STERO 11/02/2018 ALEXANDRE ANTON MD, Ot Z79.82 SYSTEMS INTEGRATION MANAGER (CURRENT) USE OF ASPIRIN 11/02/2018 ALEXANDRE ANTON [...] BOTH CERVIX AND UTER 11/02/2018 ALEXANDRE ANTON MD, Ot Z96.652 PRESENCE OF LEFT ARTIFICIAL KNEE [...] ULCER OF LEFT CALF 11/22/2018 ZHANE BOSCH MORTGAGE LOAN COMPUTATION CLERK Ot Z12.31 ENCNTR SCREEN MAMMOGRAM FOR MALIGNANT NE 11/22/2018 RUSTAM YANG MD Ot G60 .8 OTHER HEREDITARY AND IDIOPATHIC NEUROPAT 11/22/2018 RUSTAM YANG MD Ot I87.332 CHRONIC VENOUS HTN W ULCER AND INFLAMMAT 11/22/2018 RUSTAM YANG MD Ot I96 GANGRENE, NOT ELSEWHERE CLASSIFIED 11/22/2018 RUSTAM YANG MD Ot L97.222 NON-PRESSURE CHRONIC ULCER OF LEFT CALF 11/26/2018 CARROLL MACK MORTGAGE LOAN COMPUTATION CLERK Ot I 96 GANGRENE, NOT ELSEWHERE CLASSIFIED 11/26/2018 CARROLL MACK MORTGAGE LOAN COMPUTATION CLERK Ot L97.222 NON-PRESSURE CHRONIC ULCER OF LEFT CALF 11/26/2018 CARROLL MACK MORTGAGE LOAN COMPUTATION CLERK Ot L98.422 NON-PRESSURE CHRONIC ULCER OF BACK WITH 11/27/2018 ZHANE BOSCH MORTGAGE LOAN COMPUTATION CLERK Ot Z12.31 ENCNTR SCREEN MAMMOGRAM FOR MALIGNANT NE 11/28/2018 CARROLL MACK MORTGAGE LOAN COMPUTATION CLERK Ot I 96 GANGRENE, NOT ELSEWHERE CLASSIFIED 11/28/2018 CARROLL MACK MORTGAGE LOAN COMPUTATION CLERK Ot L97.222 NON-PRESSURE CHRONIC ULCER OF LEFT CALF 11/28/2018 CARROLL MACK MORTGAGE LOAN COMPUTATION CLERK Ot L98.422 NON-PRESSURE CHRONIC ULCER OF BACK WITH 11/29/2018 ZHANE BOSCH MORTGAGE LOAN COMPUTATION CLERK Ot Z12.31 ENCNTR SCREEN MAMMOGRAM FOR MALIGNANT NE 11/29/2018 CARROLL MACK MORTGAGE LOAN COMPUTATION CLERK Ot L97.222 NON-PRESSURE CHRONIC ULCER OF LEFT [...] VENOUS HTN W ULCER AND INFLAMMAT 12/06/2018 TREY MD, RUSTAM G Ot L97.222 NON-PRESSURE CHRONIC ULCER OF LEFT CALF 12/06/2018 RUSTAM YANG MD Ot L98.422 NON-PRESSURE CHRONIC ULCER OF BACK WITH 12/10/2018 CARROLL MACK MORTGAGE LOAN COMPUTATION CLERK Ot D63.1 ANEMIA IN CHRONIC KIDNEY DISEASE 12/10/2018 CARROLL MACK R MORTGAGE LOAN COMPUTATION CLERK Ot F03.90 UNSPECIFIED DEMENTIA WITHOUT BEHAVIORAL 12/10/2018 CARROLL MACK R MORTGAGE LOAN COMPUTATION CLERK Ot F41.8 OTHER SPECIFIED ANXIETY DISORDERS 12/10/2018 CARROLL MACK R MORTGAGE LOAN COMPUTATION CLERK Ot G47.30 SLEEP APNEA, UNSPECIFIED 12/10/2018 CARROLL MACK R MORTGAGE LOAN COMPUTATION CLERK Ot H26.9 UNSPECIFIED CATARACT 12/10/2018 CARROLL MACK R MORTGAGE LOAN COMPUTATION CLERK Ot I12.0 HYP CHR KIDNEY DISEASE W STAGE 5 CHR KID 12/10/2018 CARROLL MACK R MORTGAGE LOAN COMPUTATION CLERK Ot I25.10 ATHSCL HEART DISEASE OF [place] CORONARY 12/10/2018 CARROLL MACK R MORTGAGE LOAN COMPUTATION CLERK Ot I49.9 CARDIAC ARRHYTHMIA, UNSPECIFIED 12/10/2018 CARROLL MACK R MORTGAGE LOAN COMPUTATION CLERK Ot I 96 GANGRENE, NOT ELSEWHERE CLASSIFIED 12/10/2018 FREDERICK CARROLL R MORTGAGE LOAN COMPUTATION CLERK Ot L97.222 NON-PRESSURE CHRONIC ULCER OF LEFT CALF 12/10/2018 CARROLL MACK R MORTGAGE LOAN COMPUTATION CLERK Ot M19.90 UNSPECIFIED OSTEOARTHRITIS, UNSPECIFIED 12/10/2018 CARROLL MACK R MORTGAGE LOAN COMPUTATION CLERK Ot N18.6 END STAGE RENAL DISEASE 12/12/2018 CARROLL MACK R MORTGAGE LOAN COMPUTATION CLERK Ot I 96 GANGRENE, NOT ELSEWHERE CLASSIFIED 12/12/2018 CARROLL MACK R MORTGAGE LOAN COMPUTATION CLERK Ot L97.222 NON-PRESSURE CHRONIC ULCER OF LEFT CALF 12/12/2018 CARROLL MACK R MORTGAGE LOAN COMPUTATION CLERK Ot L98.422 NON-PRESSURE CHRONIC ULCER OF BACK WITH 12/13/2018 ZHANE BOSCH MORTGAGE LOAN COMPUTATION CLERK Ot Z12.31 ENCNTR SCREEN MAMMOGRAM FOR MALIGNANT NE 12/13/2018 RUSTAM YANG MD Ot D64 .9 ANEMIA, UNSPECIFIED 12/13/2018 RUSTAM YANG MD Ot F03.90 UNSPECIFIED DEMENTIA WITHOUT BEHAVIORAL 12/13/2018 RUSTAM YANG MD Ot F41 .8 OTHER SPECIFIED ANXIETY DISORDERS 12/13/2018 RUSTAM YANG MD Ot G47.30 SLEEP APNEA, UNSPECIFIED 12/13/2018 RUSTAM YANG MD Ot H26 .9 UNSPECIFIED CATARACT 12/13/2018 RUSTAM YANG MD Ot I12 .0 HYP CHR KIDNEY DISEASE W STAGE 5 CHR KID 12/13/2018 RUSTAM YANG MD, Ot I25.10 ATHSCL HEART DISEASE OF [place] CORONARY 12/13/2018 RUSTAM YANG MD, Ot I49 .9 CARDIAC ARRHYTHMIA, UNSPECIFIED 12/13/2018 RUSTAM YANG MD, Ot J45.909 UNSPECIFIED ASTHMA, UNCOMPLICATED 12/13/2018 RUSTAM YANG MD, Ot L97.222 NON-PRESSURE CHRONIC ULCER OF LEFT CALF 12/13/2018 RUSTAM YANG MD, Ot M19.91 PRIMARY OSTEOARTHRITIS, UNSPECIFIED SITE 12/13/2018 RUSTAM YANG MD, Ot N18 .6 END STAGE RENAL DISEASE 12/19/2018 RUSTAM YANG MD, Ot G60 .8 OTHER HEREDITARY AND IDIOPATHIC NEUROPAT 12/19/2018 RUSTAM YANG MD Ot I87.332 CHRONIC VENOUS HTN W ULCER AND INFLAMMAT 12/19/2018 RUSTAM YANG MD, Ot I96 GANGRENE, NOT ELSEWHERE CLASSIFIED 12/19/2018 RUSTAM YANG MD, Ot L97.222 NON-PRESSURE CHRONIC ULCER OF LEFT CALF 12/20/2018 RUSTAM YANG MD Ot G60 .8 OTHER HEREDITARY AND IDIOPATHIC NEUROPAT 12/20/2018 RUSTAM YANG MD, Ot I87.332 CHRONIC VENOUS HTN W ULCER AND INFLAMMAT 12/20/2018 RUSTAM YANG MD Ot I96 GANGRENE, NOT ELSEWHERE CLASSIFIED 12/20/2018 RUSTAM YANG MD Ot L97.222 NON-PRESSURE CHRONIC ULCER OF LEFT CALF 12/20/2018 ZHANE BOSCH APRN Ot Z12.31 ENCNTR SCREEN MAMMOGRAM FOR MALIGNANT NE 12/20/2018 RUSTAM YANG MD Ot G60 .8 OTHER HEREDITARY AND IDIOPATHIC NEUROPAT 12/20/2018 RUSTAM YANG MD, Ot I87.332 CHRONIC VENOUS HTN W ULCER AND INFLAMMAT 12/20/2018 RUSTAM YANG MD Ot I96 GANGRENE, NOT ELSEWHERE CLASSIFIED 12/20/2018 RUSTAM YANG MD Ot L97.222 NON-PRESSURE CHRONIC ULCER OF LEFT CALF 12/25/2018 RUSTAM YANG MD Ot G60 .8 OTHER [...] W ULCER AND INFLAMMAT 12/26/2018 RUSTAM YANG MD Ot I96 GANGRENE, NOT ELSEWHERE CLASSIFIED 12/26/2018 RUSTAM YANG MD Ot L97.222 NON-PRESSURE CHRONIC ULCER OF LEFT CALF 12/30/2018 RUSTAM YANG MD, Ot G60 .8 OTHER HEREDITARY AND IDIOPATHIC NEUROPAT 12/30/2018 RUSTAM YANG MD Ot I87.332 CHRONIC VENOUS HTN W ULCER AND INFLAMMAT 12/30/2018 RUSTAM YANG MD, Ot I96 GANGRENE, NOT ELSEWHERE CLASSIFIED 12/30/2018 RUSTAM YANG MD Ot L97.222 NON-PRESSURE CHRONIC ULCER OF LEFT CALF 12/30/2018 CARROLL MACK MORTGAGE LOAN COMPUTATION CLERK Ot D63.1 ANEMIA IN CHRONIC KIDNEY DISEASE 12/30/2018 CARROLL MACK MORTGAGE LOAN COMPUTATION CLERK Ot F03.90 UNSPECIFIED DEMENTIA WITHOUT BEHAVIORAL 12/30/2018 CARROLL MACK MORTGAGE LOAN COMPUTATION CLERK Ot F41.8 OTHER SPECIFIED ANXIETY DISORDERS 12/30/2018 CARROLL MACK MORTGAGE LOAN COMPUTATION CLERK Ot G47.30 SLEEP APNEA, UNSPECIFIED 12/30/2018 CARROLL MACK MORTGAGE LOAN COMPUTATION CLERK Ot H26.9 UNSPECIFIED CATARACT 12/30/2018 CARROLL MACK MORTGAGE LOAN COMPUTATION CLERK Ot I12.0 HYP CHR KIDNEY DISEASE W STAGE 5 CHR KID 12/30/2018 CARROLL MACK MORTGAGE LOAN COMPUTATION CLERK Ot I25.10 ATHSCL HEART DISEASE OF [place] CORONARY 12/30/2018 CARROLL MACK MORTGAGE LOAN COMPUTATION CLERK Ot I49.9 CARDIAC ARRHYTHMIA, UNSPECIFIED 12/30/2018 CARROLL MACK MORTGAGE LOAN COMPUTATION CLERK Ot I 96 GANGRENE, NOT ELSEWHERE CLASSIFIED 12/30/2018 CARROLL MACK MORTGAGE LOAN COMPUTATION CLERK Ot L97.222 NON-PRESSURE CHRONIC ULCER OF LEFT CALF 12/30/2018 CARROLL MACK MORTGAGE LOAN COMPUTATION CLERK Ot M19.90 UNSPECIFIED OSTEOARTHRITIS, UNSPECIFIED 12/30/2018 CARROLL MACK APRN Ot N18.6 END STAGE RENAL DISEASE 01/02/2019 RUSTAM YANG MD Ot G60 .8 OTHER HEREDITARY AND IDIOPATHIC NEUROPAT 01/02/2019 RUSTAM YANG MD, Ot I87.332 CHRONIC VENOUS HTN W ULCER AND INFLAMMAT 01/02/2019 RUSTAM YANG MD, Ot I96 GANGRENE, NOT [...] GANGRENE, NOT ELSEWHERE CLASSIFIED 01/09/2019 RUSTAM YANG MD Ot L97.222 NON-PRESSURE CHRONIC ULCER OF LEFT CALF 01/13/2019 ELROY PERAZA DO Ot M75.01 ADHESIVE CAPSULITIS OF RIGHT SHOULDER 01/14/2019 RUSTAM YANG MD Ot D64 .9 ANEMIA, UNSPECIFIED 01/14/2019 RUSTAM YANG MD Ot F03.90 UNSPECIFIED DEMENTIA WITHOUT BEHAVIORAL 01/14/2019 RUSTAM YANG MD Ot F41 .8 OTHER SPECIFIED ANXIETY DISORDERS 01/14/2019 RUSTAM YANG MD Ot G47.30 SLEEP APNEA, UNSPECIFIED 01/14/2019 RUSTAM YANG MD, Ot H26 .9 UNSPECIFIED CATARACT 01/14/2019 RUSTAM YANG MD, Ot I12 .0 HYP CHR KIDNEY DISEASE W STAGE 5 CHR KID 01/14/2019 RUSTAM YANG MD, Ot I25.10 ATHSCL HEART DISEASE OF [place] CORONARY 01/14/2019 RUSTAM YANG MD Ot I49 .9 CARDIAC ARRHYTHMIA, UNSPECIFIED 01/14/2019 RUSTAM YANG MD, Ot J45.909 UNSPECIFIED ASTHMA, UNCOMPLICATED 01/14/2019 RUSTAM YANG MD, Ot L97.222 NON-PRESSURE CHRONIC ULCER OF LEFT CALF 01/14/2019 RUSTAM YANG MD, Ot M19.91 PRIMARY OSTEOARTHRITIS, UNSPECIFIED SITE 01/14/2019 RUSTAM YANG MD, Ot N18 .6 END STAGE RENAL DISEASE 01/15/2019 RUSTAM YANG MD, Ot G60 .8 OTHER HEREDITARY AND IDIOPATHIC NEUROPAT 01/15/2019 RUSTAM YANG MD, Ot I87.332 CHRONIC VENOUS HTN W ULCER AND INFLAMMAT 01/15/2019 RUSTAM YANG MD, Ot I96 GANGRENE, NOT ELSEWHERE CLASSIFIED 01/15/2019 RUSTAM YANG MD, Ot L97.222 NON-PRESSURE CHRONIC ULCER OF LEFT CALF 01/16/2019 ELROY PERAZA DO Ot M75.01 ADHESIVE CAPSULITIS OF RIGHT SHOULDER 01/16/2019 RUSTAM YANG MD, Ot G60 .8 OTHER HEREDITARY AND IDIOPATHIC NEUROPAT 01/16/2019 RUSTAM YANG MD, Ot I87.332 CHRONIC VENOUS HTN W ULCER AND INFLAMMAT 01/16/2019 RUSTAM YANG MD, Ot I96 GANGRENE, NOT ELSEWHERE CLASSIFIED 01/16/2019 RUSTAM YANG MD, Ot L97.222 NON-PRESSURE CHRONIC ULCER OF LEFT CALF 01/17/2019 ELROY PERAZA DO Ot M75.102 UNSP ROTATR-CUFF TEAR/RUPTR OF LEFT SHOU 01/17/2019 ELROY PERAZA DO Ot S43.402A UNSPECIFIED SPRAIN OF LEFT SHOULDER JOIN 01/20/2019 RUSTAM YANG MD, Ot G60 .8 OTHER HEREDITARY AND IDIOPATHIC NEUROPAT 01/20/2019 RUSTAM YANG MD, Ot I87.332 CHRONIC VENOUS HTN W ULCER AND INFLAMMAT 01/20/2019 RUSTAM YANG MD, Ot L97.222 NON-PRESSURE CHRONIC ULCER OF LEFT CALF 01/21/2019 ELROY PERAZA DO Ot M75.102 UNSP ROTATR-CUFF TEAR/RUPTR OF LEFT SHOU 01/21/2019 ELROY PERAZA DO Ot S43.402A UNSPECIFIED SPRAIN OF LEFT SHOULDER JOIN 01/24/2019 RUSTAM YANG MD, Ot G60 .8 OTHER HEREDITARY AND IDIOPATHIC NEUROPAT 01/24/2019 RUSTAM YANG MD, Ot I87.332 CHRONIC VENOUS HTN W ULCER AND INFLAMMAT 01/24/2019 RUSTAM YANG MD Ot I96 GANGRENE, NOT ELSEWHERE CLASSIFIED 01/24/2019 RUSTAM YANG MD, Ot L97.222 NON-PRESSURE CHRONIC ULCER OF LEFT CALF 01/24/2019 RUSTAM YANG MD, Ot G60 .8 OTHER HEREDITARY AND IDIOPATHIC NEUROPAT 01/24/2019 RUSTAM YANG MD Ot I87.332 CHRONIC VENOUS [...] HAWTHORNE Ot I25.10 ATHSCL HEART DISEASE OF [place] CORONARY 02/13/2019 SHANTELLE HAWTHORNE Ot I49.1 ATRIAL PREMATURE DEPOLARIZATION 02/13/2019 SHANTELLE HAWTHORNE Ot I49.3 VENTRICULAR PREMATURE DEPOLARIZATION 02/13/2019 STU WASSERMAN ELROY Thomson Ot M75.01 ADHESIVE CAPSULITIS OF RIGHT SHOULDER 02/13/2019 STU WASSERMAN ELROY Thomson Ot M75.102 UNSP ROTATR-CUFF TEAR/RUPTR OF LEFT SHOU 02/13/2019 STU WASSERMAN ELROY Thomson Ot S43.402A UNSPECIFIED SPRAIN OF [...] CORON ATHEROSCLER NOS TYPE VESSEL, NATIV 02/27/2019 ARUNA HERNANDEZ MD Ot 427. 31 ATRIAL FIBRILLATION 02/27/2019 DAVID DOHERTY, ARUNA Hernandez Ot 786. 50 CHEST PAIN NOS 02/27/2019 BEVERLY WHITMORE DO Ot K22. 5 DIVERTICULUM OF ESOPHAGUS, ACQUIRED 02/27/2019 BEVERLY WHITMORE DO Ot R13. 10 DYSPHAGIA, UNSPECIFIED 02/27/2019 ISABEL MAE VIROLOGIST Ot Z12.31 ENCNTR SCREEN MAMMOGRAM FOR MALIGNANT NE 02/27/2019 ISABEL MAE VIROLOGIST Ot E55 .9 VITAMIN D DEFICIENCY, UNSPECIFIED 02/27/2019 ISABEL MAE VIROLOGIST Ot M85.89 OT DISRD OF BONE DENSITY AND STRUCTURE, 02/27/2019 JULIAN DOHERTY, RUSTAM Guerra Ot M17.11 UNILATERAL PRIMARY OSTEOARTHRITIS, RIGHT 02/27/2019 RUSTAM JORDAN MD Ot M17.12 UNILATERAL PRIMARY OSTEOARTHRITIS, LEFT 02/27/2019 JULIAN DOHERTY, RUSTAM Guerra Ot M54.16 RADICULOPATHY, LUMBAR REGION 02/27/2019 DONALD DOHERTY, BRENTON Hernandez Ot E66. 01 MORBID (SEVERE) OBESITY DUE TO EXCESS CA 02/27/2019 DONALD DOHERTY, BRENTON Hernandez Ot M47.816 SPONDYLOSIS W/O MYELOPATHY OR RADICULOPA 02/27/2019 BRENTON BENNETT MD Ot M53. 3 SACROCOCCYGEAL DISORDERS, NOT ELSEWHERE 02/27/2019 BRENTON BENNETT MD Ot M79. 7 FIBROMYALGIA 02/27/2019 BRENTON BENNETT MD Ot Z68. 41 BODY MASS INDEX (BMI) 40.0-44.9, ADULT 02/27/2019 BRENTON BENNETT MD Ot Z79.899 OTHER [facility] (CURRENT) DRUG THERAPY 02/27/2019 CHARLYISABEL Reyes SAGE Ot Z12.31 ENCNTR SCREEN MAMMOGRAM FOR MALIGNANT NE 02/27/2019 SHANTELLE HAWTHORNE Ot I07.1 RHEUMATIC TRICUSPID INSUFFICIENCY 02/27/2019 SHANTELLE HAWTHORNE Ot I10 ESSENTIAL (PRIMARY) HYPERTENSION 02/27/2019 SHANTELLE HAWTHORNE Ot I25.10 ATHSCL HEART DISEASE OF [place] CORONARY 02/27/2019 SHANTELLE HAWTHORNE Ot R00.2 PALPITATIONS 02/27/2019 SHANTELLE HAWTHORNE Ot R42 DIZZINESS AND GIDDINESS 02/27/2019 VIGNESH THAKUR MD S Ot D63.1 ANEMIA IN CHRONIC KIDNEY DISEASE 02/27/2019 BLAZE DOHERTY, VIGNESH S Ot E55.9 VITAMIN D DEFICIENCY, UNSPECIFIED 02/27/2019 BLAZE DOHERTY, VIGNESH S Ot E61.1 IRON DEFICIENCY 02/27/2019 BLAZE DOHERTY, VIGNESH S Ot E78.5 HYPERLIPIDEMIA, UNSPECIFIED 02/27/2019 BLAZE DOHERTY, VIGNESH S Ot E87.2 ACIDOSIS 02/27/2019 BLAZE DOHERTY, VIGNESH S Ot E87.3 ALKALOSIS 02/27/2019 BLAZE DOHERTY, VIGNESH S Ot E87.5 HYPERKALEMIA 02/27/2019 BLAZE DOHERTY, VIGNESH S Ot I12.9 HYPERTENSIVE [...] MD S Ot E61.1 IRON DEFICIENCY 02/27/2019 BLAZE DOHERTY, VIGNESH S Ot E78.5 HYPERLIPIDEMIA, UNSPECIFIED 02/27/2019 VIGNESH THAKUR MD S Ot E87.2 ACIDOSIS 02/27/2019 VIGNESH THAKUR MD S Ot E87.3 ALKALOSIS 02/27/2019 VIGNESH THAKUR MD S Ot I12.9 HYPERTENSIVE CHRONIC KIDNEY DISEASE W ST 02/27/2019 VIGNESH THAKUR MD S Ot N17.9 ACUTE KIDNEY FAILURE, UNSPECIFIED 02/27/2019 VIGNESH THAKUR MD S Ot N18.4 CHRONIC KIDNEY DISEASE, STAGE 4 (SEVERE) 02/27/2019 VIGNESH THAKUR MD S Ot N25.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 02/27/2019 VIGNESH THAKUR MD S Ot R80.9 PROTEINURIA, UNSPECIFIED 02/27/2019 BLAZE DOHERTY, VIGNESH S Ot D63.1 ANEMIA IN CHRONIC KIDNEY DISEASE 02/27/2019 VIGNESH THAKUR MD S Ot E55.9 VITAMIN D DEFICIENCY, UNSPECIFIED 02/27/2019 BLAZE DOHERTY, VIGNESH S Ot E61.1 IRON DEFICIENCY 02/27/2019 VIGNESH THAKUR MD S Ot E78.5 HYPERLIPIDEMIA, UNSPECIFIED 02/27/2019 VIGNESH THAKUR MD S Ot E87.2 ACIDOSIS 02/27/2019 VIGNESH THAKUR [...] Ot R80.9 PROTEINURIA, UNSPECIFIED 02/27/2019 ISABEL MAE Ot Z53 .9 PROCEDURE AND TREATMENT NOT CARRIED OUT, 02/27/2019 NEW, GE G. RISK MANAGEMENT MANAGER-C Ot D63.1 ANEMIA IN CHRONIC KIDNEY DISEASE 02/27/2019 NEW, GE G. RISK MANAGEMENT MANAGER-C Ot E55.9 VITAMIN D DEFICIENCY, UNSPECIFIED 02/27/2019 NEW, GE G. RISK MANAGEMENT MANAGER-C Ot E61.1 IRON DEFICIENCY 02/27/2019 NEW, GE G. RISK MANAGEMENT MANAGER-C Ot E78.5 HYPERLIPIDEMIA, UNSPECIFIED 02/27/2019 NEW, GE G. RISK MANAGEMENT MANAGER-C Ot E87.2 ACIDOSIS 02/27/2019 NEW, GE G. RISK MANAGEMENT MANAGER-C Ot E87.3 ALKALOSIS 02/27/2019 NEW, GE G. RISK MANAGEMENT MANAGER-C Ot E87.5 HYPERKALEMIA 02/27/2019 NEW, GE G. RISK MANAGEMENT MANAGER-C Ot I12.9 HYPERTENSIVE CHRONIC KIDNEY DISEASE W ST 02/27/2019 NEW, GE G. RISK MANAGEMENT MANAGER-C Ot N18.4 CHRONIC KIDNEY DISEASE, STAGE 4 (SEVERE) 02/27/2019 NEW, GE G. RISK MANAGEMENT MANAGER-C Ot N25.8 1 SECONDARY HYPERPARATHYROIDISM OF RENAL O 02/27/2019 NEW, GE G. RISK MANAGEMENT MANAGER-C Ot R80.9 PROTEINURIA, UNSPECIFIED 02/27/2019 NEW, GE G. RISK MANAGEMENT MANAGER-C Ot R82.9 0 UNSPECIFIED ABNORMAL FINDINGS IN URINE 02/27/2019 ZHANE BOSCH APRN Ot Z12.31 ENCNTR SCREEN MAMMOGRAM FOR MALIGNANT NE 02/27/2019 ISABEL MAEP Ot J90 PLEURAL EFFUSION, NOT ELSEWHERE CLASSIFI 02/27/2019 BLAZE DOHERTY, MYESHA Ot D63.1 ANEMIA IN CHRONIC KIDNEY DISEASE 02/27/2019 MYESHA THAKUR MD, Ot E55.9 VITAMIN D DEFICIENCY, UNSPECIFIED 02/27/2019 MYESHA THAKUR MD, Ot E61.1 IRON DEFICIENCY 02/27/2019 MYESHA THAKUR MD Ot E78.5 HYPERLIPIDEMIA, UNSPECIFIED 02/27/2019 MYESHA THAKUR MD Ot E87.2 ACIDOSIS 02/27/2019 MYESHA THAKUR MD Ot E87.3 ALKALOSIS 02/27/2019 MYESHA THAKUR MD Ot E87.5 HYPERKALEMIA 02/27/2019 MYESHA THAKUR MD Ot I12.9 HYPERTENSIVE CHRONIC KIDNEY DISEASE W ST 02/27/2019 MYESHA THAKUR MD, Ot N17.9 ACUTE KIDNEY FAILURE, UNSPECIFIED 02/27/2019 [...] Ot I25. 10 ATHSCL HEART DISEASE OF [place] CORONARY 02/27/2019 ARUNA HERNANDEZ MD Ot I48. [...] THAKUR MD Ot E61.1 IRON DEFICIENCY 02/27/2019 BLAZE DOHERTY, MYESHA Ot E78.5 HYPERLIPIDEMIA, UNSPECIFIED 02/27/2019 MYESHA THAKUR MD Ot E87.2 ACIDOSIS 02/27/2019 BLAZE DOHERTY, MYESHA Ot E87.3 ALKALOSIS 02/27/2019 MYESHA THAKUR MD Ot E87.5 HYPERKALEMIA 02/27/2019 BLAZE DOHERTY, MYESHA Ot I12.9 HYPERTENSIVE CHRONIC KIDNEY DISEASE W ST 02/27/2019 BLAZE DOHERTY, MYESHA Ot N17.9 ACUTE KIDNEY FAILURE, UNSPECIFIED 02/27/2019 MYESHA THAKUR MD Ot N18.4 CHRONIC KIDNEY DISEASE, STAGE 4 (SEVERE) 02/27/2019 MYESHA THAKUR MD Ot N25.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 02/27/2019 MYESHA THAKUR MD Ot R80.9 PROTEINURIA, UNSPECIFIED 02/27/2019 KITA BLACKMON APRN Ot G47.33 OBSTRUCTIVE SLEEP APNEA (ADULT) (PEDIATR 02/27/2019 KITA BLACKMON MORTGAGE LOAN COMPUTATION CLERK Ot I48.0 PAROXYSMAL ATRIAL FIBRILLATION 02/27/2019 KITA BLACKMON APRN Ot J45.909 UNSPECIFIED ASTHMA, UNCOMPLICATED 02/27/2019 KITA BLACKMON MORTGAGE LOAN COMPUTATION CLERK Ot K92.9 DISEASE OF DIGESTIVE SYSTEM, UNSPECIFIED 02/27/2019 KITA BLACKMON MORTGAGE LOAN COMPUTATION CLERK Ot R06.02 SHORTNESS OF BREATH 02/27/2019 KITA BLACKMON MORTGAGE LOAN COMPUTATION CLERK Ot R53.83 OTHER FATIGUE 02/27/2019 KITA BLACKMON MORTGAGE LOAN COMPUTATION CLERK Ot R91.1 SOLITARY PULMONARY NODULE 02/27/2019 KITA BLACKMON MORTGAGE LOAN COMPUTATION CLERK Ot G47.33 OBSTRUCTIVE SLEEP APNEA (ADULT) (PEDIATR 02/27/2019 KITA BLACKMON MORTGAGE LOAN COMPUTATION CLERK Ot I48.0 PAROXYSMAL ATRIAL FIBRILLATION 02/27/2019 KITA BLACKMON MORTGAGE LOAN COMPUTATION CLERK Ot J45.909 UNSPECIFIED ASTHMA, UNCOMPLICATED 02/27/2019 KITA BLACKMON MORTGAGE LOAN COMPUTATION CLERK Ot K92.9 DISEASE OF DIGESTIVE SYSTEM, UNSPECIFIED 02/27/2019 KITA BLACKMON MORTGAGE LOAN COMPUTATION CLERK Ot R59.0 LOCALIZED ENLARGED LYMPH NODES 02/27/2019 KITA BLACKMON APRN Ot R91.1 SOLITARY PULMONARY NODULE 02/27/2019 KITA BLACKMON MORTGAGE LOAN COMPUTATION CLERK Ot Z78.9 OTHER SPECIFIED HEALTH STATUS 02/27/2019 KITA BLACKMON MORTGAGE LOAN COMPUTATION CLERK Ot J45.909 UNSPECIFIED ASTHMA, UNCOMPLICATED 02/27/2019 KITA BLACKMON APRN Ot R91.1 SOLITARY PULMONARY NODULE 02/27/2019 ZHANE BOSCH APRN Ot M25.511 PAIN IN RIGHT SHOULDER 02/27/2019 ZHANE BOSCH MORTGAGE LOAN COMPUTATION CLERK Ot Z53.8 PROCEDURE AND TREATMENT NOT CARRIED [...] Ot R80.9 PROTEINURIA, UNSPECIFIED 02/27/2019 ZHANE BOSCH APRN Ot M19.011 PRIMARY OSTEOARTHRITIS, RIGHT SHOULDER 02/27/2019 ZHANE BOSCH APRN Ot M25.711 OSTEOPHYTE, RIGHT SHOULDER 02/27/2019 KITA BLACKMON MORTGAGE LOAN COMPUTATION CLERK Ot R91.1 SOLITARY PULMONARY NODULE 02/27/2019 KITA BLACKMON MORTGAGE LOAN COMPUTATION CLERK Ot Z84.1 FAMILY HISTORY OF DISORDERS OF KIDNEY AN 02/27/2019 CARROLL MACK APRN Ot I 96 GANGRENE, NOT ELSEWHERE CLASSIFIED 02/27/2019 CARROLL MACK APRN Ot L97.222 NON-PRESSURE CHRONIC ULCER OF LEFT CALF 02/27/2019 CARROLL MACK APRN Ot L98.422 NON-PRESSURE CHRONIC [...] MAMMOGRAM FOR MALIGNANT NE 02/27/2019 RUSTAM YANG MD, Ot G60 .8 [...] MD, Ot I25.10 ATHSCL HEART DISEASE OF [place] CORONARY 02/27/2019 RUSTAM YANG MD, Ot I49 .9 CARDIAC ARRHYTHMIA, UNSPECIFIED 02/27/2019 RUSTAM YANG MD, Ot J45.909 UNSPECIFIED ASTHMA, UNCOMPLICATED 02/27/2019 RUSTAM YANG MD, Ot L97.222 NON-PRESSURE CHRONIC ULCER OF LEFT CALF 02/27/2019 RUSTAM YANG MD Ot M19.91 PRIMARY OSTEOARTHRITIS, UNSPECIFIED SITE 02/27/2019 [...] ULCER OF LEFT CALF 02/27/2019 CARROLL MACK APRN Ot D63.1 ANEMIA IN CHRONIC KIDNEY DISEASE 02/27/2019 CARROLL MACK MORTGAGE LOAN COMPUTATION CLERK Ot F03.90 UNSPECIFIED DEMENTIA WITHOUT BEHAVIORAL 02/27/2019 CARROLL MACK MORTGAGE LOAN COMPUTATION CLERK Ot F41.8 OTHER SPECIFIED ANXIETY DISORDERS 02/27/2019 CARROLL MACK MORTGAGE LOAN COMPUTATION CLERK Ot G47.30 SLEEP APNEA, UNSPECIFIED 02/27/2019 CARROLL MACK MORTGAGE LOAN COMPUTATION CLERK Ot H26.9 UNSPECIFIED CATARACT 02/27/2019 CARROLL MACK APRN Ot I12.0 HYP CHR KIDNEY DISEASE W STAGE 5 CHR KID 02/27/2019 CARROLL MACK APRN Ot I25.10 ATHSCL HEART DISEASE OF [place] CORONARY 02/27/2019 CARROLL MACK MORTGAGE LOAN COMPUTATION CLERK Ot I49.9 CARDIAC ARRHYTHMIA, UNSPECIFIED 02/27/2019 CARROLL MACK MORTGAGE LOAN COMPUTATION CLERK Ot I 96 [place]ANGR[place], NOT ELSEWHERE CLASSIFIED 02/27/2019 CARROLL MACK MORTGAGE LOAN COMPUTATION CLERK Ot L97.222 NON-PRESSURE CHRONIC ULCER OF LEFT CALF 02/27/2019 CARROLL MACK MORTGAGE LOAN COMPUTATION CLERK Ot M19.90 UNSPECIFIED OSTEOARTHRITIS, UNSPECIFIED 02/27/2019 CARROLL MACK MORTGAGE LOAN COMPUTATION CLERK Ot N18.6 END STAGE RENAL DISEASE 02/27/2019 [...] TEAR/RUPTR OF LEFT SHOU 02/27/2019 ELROY PERAZA DO Ot S43.402A UNSPECIFIED SPRAIN [...] HAWTHORNE Ot I25.10 ATHSCL HEART DISEASE OF [place] CORONARY 02/27/2019 SHANTELLE HAWTHORNE Ot I49.1 ATRIAL PREMATURE DEPOLARIZATION 02/27/2019 SHANTELLE HAWTHORNE Ot I49.3 VENTRICULAR PREMATURE DEPOLARIZATION 03/05/2019 ELROY PERAZA DO, Ot M75.01 ADHESIVE CAPSULITIS OF RIGHT SHOULDER 03/06/2019 SHANTELLE HAWTHORNE Ot I10 ESSENTIAL (PRIMARY) HYPERTENSION 03/06/2019 SHANTELLE HAWTHORNE Ot I25.10 ATHSCL HEART DISEASE OF [place] CORONARY 03/06/2019 SHANTELLE HAWTHORNE Ot I49.1 ATRIAL [...] DISORDERS OF KIDNEY AN 04/02/2019 RUSTAM YANG MD, Ot G60 .8 OTHER HEREDITARY AND IDIOPATHIC NEUROPAT 04/02/2019 RUSTAM YANG MD, Ot I87.322 CHRONIC VENOUS HYPERTENSION W INFLAMMATI 04/02/2019 RUSTAM YANG MD, Ot R23 .8 OTHER SKIN CHANGES 04/14/2019 RUSTAM YANG MD, Ot G60 .8 OTHER HEREDITARY AND IDIOPATHIC NEUROPAT 04/14/2019 RUSTAM YANG MD, Ot I87.322 CHRONIC VENOUS HYPERTENSION W INFLAMMATI 04/14/2019 RUSTAM YANG MD Ot R23 .8 OTHER SKIN CHANGES 04/14/2019 KITA BLACKMON MORTGAGE LOAN COMPUTATION CLERK Ot R91.1 SOLITARY PULMONARY NODULE 04/14/2019 KITA BLACKMON MORTGAGE LOAN COMPUTATION CLERK Ot Z84.1 FAMILY HISTORY OF DISORDERS OF KIDNEY AN 04/14/2019 RUSTAM YANG MD, Ot G60 .8 OTHER HEREDITARY AND IDIOPATHIC NEUROPAT 04/14/2019 RUSTAM YANG MD Ot I87.332 CHRONIC [...] VENOUS HYPERTENSION W INFLAMMATI 04/14/2019 RUSTAM YANG MD Ot R23 .8 OTHER SKIN CHANGES 04/28/2019 RUSTAM YANG MD Ot G60 .8 OTHER HEREDITARY AND IDIOPATHIC NEUROPAT 04/28/2019 RUSTAM YANG MD Ot I87.322 CHRONIC VENOUS HYPERTENSION W INFLAMMATI 04/28/2019 RUSTAM YANG MD Ot R23 .8 OTHER SKIN CHANGES 05/06/2019 PERI CASTANEDA APRN Ot R29.898 OTH SYMPTOMS AND SIGNS INVOLVING THE MUS 05/06/2019 TONYA, PERI E MORTGAGE LOAN COMPUTATION CLERK Ot Z98.890 OTHER SPECIFIED POSTPROCEDURAL STATES 05/12/2019 TONYA, PERI E MORTGAGE LOAN COMPUTATION CLERK Ot R29.898 OTH SYMPTOMS AND SIGNS INVOLVING THE MUS 05/12/2019 TONYA, PERI E MORTGAGE LOAN COMPUTATION CLERK Ot Z98.890 OTHER SPECIFIED POSTPROCEDURAL STATES 06/09/2019 TONYA, PERI E MORTGAGE LOAN COMPUTATION CLERK Ot R29.898 OTH SYMPTOMS AND SIGNS INVOLVING THE MUS 06/09/2019 TONYA, PERI E MORTGAGE LOAN COMPUTATION CLERK Ot Z98.890 OTHER SPECIFIED POSTPROCEDURAL STATES 06/10/2019 TONYA, PERI E MORTGAGE LOAN COMPUTATION CLERK Ot R29.898 OTH SYMPTOMS AND SIGNS INVOLVING THE MUS 06/10/2019 TONYA, PERI E MORTGAGE LOAN COMPUTATION CLERK Ot Z98.890 OTHER SPECIFIED POSTPROCEDURAL STATES 06/13/2019 TONYA, PERI E MORTGAGE LOAN COMPUTATION CLERK Ot R29.898 OTH SYMPTOMS AND SIGNS INVOLVING THE MUS 06/13/2019 TONYA, PERI E MORTGAGE LOAN COMPUTATION CLERK Ot Z98.890 OTHER SPECIFIED POSTPROCEDURAL STATES 07/22/2019 ZHANE BOSCH MORTGAGE LOAN COMPUTATION CLERK Ot R59.1 GENERALIZED ENLARGED LYMPH NODES Procedures Code Description Performed By Per marina On 65.61 OTH REMOVE BOTH OVARIES/TUBES 06/01/[address] VAG HYSTER(LAVH) 06/01/2006 45.16 ESOP HAGOGASTRODUODENOSCOPY [EGD] W/CLOSE 01/12/2011 45.25 CLOS ED ENDOSCOPIC BIOPSY OF LARGE INTEST 01/12/2011 53528 ROUT INE VENIPUNCTURE 02/14/2012 91645 MYCO PLASMA ANTIBODY 02/14/2012 91957 XRAY CHEST 2 VIEW 02/20/2012 02835 XRAY CHEST 2 VIEW 02/20/2012 86842 ROUT INE VENIPUNCTURE 04/02/2012 20958 CMP 04/02/2012 22463 LIPI D PANEL 04/02/2012 4003757 GF R CALC (RESULT ONLY) 04/02/2012 45281 CBC 04/02/2012 33993 IRON SERUM 04/03/2012 24531 TSH 04/03/2012 40849 JOIN T INJECTION- LARGE JOINT (SPECIFY MEDCIN DESCRIPTION) 04/18 83492 XRAY KNEE RIGHT 1 OR 2 VIEWS 04/18/2012 J1040 DEPO MEDROL 80 MG INJ 04/18/2012 35241 ROUT INE VENIPUNCTURE 05/03/2012 40961 LIPI D PANEL 05/03/2012 94800 DULCE L PROFILE 05/03/2012 89464 UA W /MICROSCOPY 05/03/2012 97145 PTH (intact) 05/03/2012 97039 PHOS PHORUS 05/03/2012 58960 CBC 05/03/2012 24910 CULT URE URINE 05/03/2012 IRGROUP IR ON GROUP (Iron,TIBC, Ferritin) 05/03/2012 PRO/CRE UR INE PROTEIN TO CREATNINE RATIO 05/03/2012 43996 ROUT INE VENIPUNCTURE 06/13/2012 61619 BNP 06/13/2012 87144 CRP HS (CARDIO) 06/13/2012 13467 ROUT INE VENIPUNCTURE 07/17/2012 84879 LIVE R PANEL (LFT) 07/17/2012 6543150 GF R CALC (RESULT ONLY) 07/17/2012 59642 TSH 07/17/2012 25773 DULCE L PROFILE 07/17/2012 73603 DELGADO ER MONITOR 07/18/2012 82836 ECHO 2D 07/18/2012 74373 ROUT INE VENIPUNCTURE 09/04/2012 55853 CBC 09/04/2012 23182 UA W / CULTURE IF INDICATED 09/04/2012 77336 NICA MIN D 25-HYDROXY (D2,D3, TOTAL) 09/04/2012 32556 FERRITIN 09/04/2012 42127 DULCE L PROFILE 09/04/2012 59496 IRON SERUM 09/04/2012 27014 IRON BNDNG CAP 09/04/2012 1701533 GF R CALC (RESULT ONLY) 09/04/2012 PRO/CRE UR INE PROTEIN TO CREATNINE RATIO 09/04/2012 46687 CULT URE URINE 09/04/2012 IRGROUP IR ON GROUP (Iron,TIBC, Ferritin) 09/04/2012 32885 JOIN T INJECTION- LARGE JOINT (SPECIFY MEDCIN DESCRIPTION) 10/1010 JOIN T INJECTION- LARGE JOINT (SPECIFY MEDCIN DESCRIPTION) 12/26 05395 JOIN T INJECTION- LARGE JOINT (SPECIFY MEDCIN DESCRIPTION) 02/06 42713 ROUT INE VENIPUNCTURE 02/27/2013 40107 LIPI D PANEL 02/27/2013 73645 TSH 02/27/2013 44558 CBC 07/21/2013 79788 DULCE L PROFILE 07/21/2013 68067 IRON SERUM 07/21/2013 95502 IRON BNDNG CAP 07/21/2013 3188647 GF R CALC (RESULT ONLY) 07/21/2013 PRO/CRE UR INE PROTEIN TO CREATNINE RATIO 07/21/2013 09033 NICA MIN D 25-HYDROXY (D2,D3, TOTAL) 07/21/2013 85617 FERRITIN 07/21/2013 41200 URIN E MICROSCOPIC EXAM 07/21/2013 IRGROUP IR ON GROUP (Iron,TIBC, Ferritin) 07/22/2013 00221 JOIN T INJECTION- LARGE JOINT (SPECIFY MEDCIN DESCRIPTION) 08/21 37168 ROUT INE VENIPUNCTURE 08/22/2013 0633332 GF R CALC (RESULT ONLY) 08/22/2013 50920 CMP 08/22/2013 67841 TSH 08/22/2013 38732 ROUT INE VENIPUNCTURE 10/06/2013 35326 CMP 10/06/2013 74455 STRE P A (IN-HOUSE) 10/29/2013 97581 NEBU LIZER TREATMENT 10/29/2013 36528 OXIMETRY 10/29/2013 34926 OXIMETRY 10/31/2013 92015 JOIN T INJECTION- LARGE JOINT (SPECIFY MEDCIN DESCRIPTION) 12/04 22884 ROUT INE VENIPUNCTURE 01/19/2014 7302939 GF R CALC (RESULT ONLY) 01/19/2014 09542 LIPI D PANEL 01/19/2014 28744 DULCE L PROFILE 01/19/2014 40959 IRON SERUM 01/19/2014 23801 IRON BNDNG CAP 01/19/2014 38849 CBC 01/19/2014 71102 TSH 01/19/2014 PRO/CRE UR INE PROTEIN TO CREATNINE RATIO 01/19/2014 40904 NICA MIN D 25-HYDROXY (D2,D3, TOTAL) 01/19/2014 53195 FERRITIN 01/19/2014 91859 UA W /MICROSCOPY 01/19/2014 IRGROUP IR ON GROUP (IRON,TIBC, FERRITIN) 01/20/2014 25067 INFL UENZA A & B (IN-HOUSE) 03/30/2014 95528 OXIMETRY 03/30/2014 43821 PSYC H DIAGNOSTIC EVALUATION 06/01/2014 70311 ROUT INE VENIPUNCTURE 07/16/2014 03412 XRAY ANKLE L COMP MIN, 3 VIEWS 07/16/2014 93039 DULCE L PROFILE 07/16/2014 54565 UA W /MICROSCOPY 07/16/2014 20006 NICA MIN D 25-HYDROXY (D2,D3, TOTAL) 07/16/2014 98806 PTH (intact) (ORDER ONLY) 07/16/2014 77582 CBC 07/16/2014 IRGROUP IR ON GROUP (Iron,TIBC, Ferritin) 07/16/2014 PRO/CRE UR INE PROTEIN TO CREATNINE RATIO 07/16/2014 87629 PSYT X PT&/FAMILY 45 MINUTES 08/03/[id number] TALBERT OF SPINAL CANAL, PERCUTANEOUS A 08/04/2018 Results Test Result Range Urine Culture, Routine - 12/14/15 18:54 Urine Culture, Routine Note Urine Culture, Routine - 12/23/15 12:14 Urine Culture, Routine Note Lipid Panel - 01/12/16 15:15 Cholesterol, Total 244 mg/dL 100-199 Triglycerides 187 mg/dL 0-149 HDL Cholesterol 50 mg/dL >39 VLDL Cholesterol [place] 37 mg/dL 5-40 LDL Cholesterol Calc 157 mg/dL 0-99 Comp. Metabolic Panel (14) - 01/12/16 15 :15 Glucose, Serum 98 mg/dL 65-99 BUN 15 mg/dL 6-24 Creatinine, Serum 1.18 mg/dL 0.57-1.00 eGFR If NonAfricn Am 52 mL/min/1.73 >59 eGFR If Africn Am 60 mL/min/1.73 >59 BUN/Creatinine Ratio 13 9-23 Sodium, Serum 144 mmol/L 134-144 Potassium, Serum 4.2 mmol/L 3.5-5.2 Chloride, Serum 101 mmol/L 97-108 Carbon Dioxide, Total 27 mmol/L 18-29 Calcium, Serum 9.7 mg/dL 8.7-10.2 Protein, Total, Serum 7.1 g/dL 6.0-8.5 Albumin, Serum 4.6 g/dL 3.5-5.5 Globulin, Total 2.5 g/dL 1.5-4.5 A/G Ratio 1.8 1.1-2.5 Bilirubin, Total 0.3 mg/dL 0.0-1.2 Alkaline Phosphatase, S 113 IU/L 39-117 AST (SGOT) 27 IU/L 0-40 ALT (SGPT) 21 IU/L 0-32 Urine Culture, Routine - 02/22/16 18:55 Urine Culture, Routine Note Vitamin D, 25-Hydroxy - 05/18/16 15:21 Vitamin D, 25-Hydroxy 20.6 ng/mL 30.0-10 0.0 CBC With Differential/Platelet - 7 17:57 WBC 8.2 x10E3/uL 3.4-10.8 RBC 4.25 x10E6/uL 3.77-5.28 Hemoglobin 12.2 g/dL 11.1-15.9 Hematocrit 37.3 % 34.0-46.6 MCV 88 fL 79-97 MCH 28.7 pg 26.6-33.0 MCHC 32.7 g/dL 31.5-35.7 RDW 14.3 % 12.3-15.4 Platelets 283 x10E3/uL 150-379 Neutrophils 50 % Lymphs 38 % Monocytes 7 % Eos 4 % Basos 1 % Neutrophils (Absolute) 4.1 x10E3/uL 1.4- 7.0 Lymphs (Absolute) 3.1 x10E3/uL 0.7-3.1 Monocytes(Absolute) 0.6 x10E3/uL 0.1-0.9 Eos (Absolute) 0.3 x10E3/uL 0.0-0.4 Baso (Absolute) 0.1 x10E3/uL 0.0-0.2 Immature Granulocytes 0 % Immature Grans (Abs) 0.0 x10E3/uL 0.0-0. 1 TSH - 05/24/16 17:57 TSH 7.210 uIU/mL 0.450-4.500 CBC With Differential/Platelet - 7 17:28 WBC 7.9 x10E3/uL 3.4-10.8 RBC 3.81 x10E6/uL 3.77-5.28 Hemoglobin 11.1 g/dL 11.1-15.9 Hematocrit 33.9 % 34.0-46.6 MCV 89 fL 79-97 MCH 29.1 pg 26.6-33.0 MCHC 32.7 g/dL 31.5-35.7 RDW 14.6 % 12.3-15.4 Platelets 274 x10E3/uL 150-379 Neutrophils 54 % Lymphs 33 % Monocytes 7 % Eos 4 % Basos 1 % Neutrophils (Absolute) 4.3 x10E3/uL 1.4- 7.0 Lymphs (Absolute) 2.6 x10E3/uL 0.7-3.1 Monocytes(Absolute) 0.6 x10E3/uL 0.1-0.9 Eos (Absolute) 0.3 x10E3/uL 0.0-0.4 Baso (Absolute) 0.1 x10E3/uL 0.0-0.2 Immature Granulocytes 1 % Immature Grans (Abs) 0.1 x10E3/uL 0.0-0. 1 Comp. Metabolic Panel (14) - 09/20/16 17 :28 Glucose, Serum 94 mg/dL 65-99 BUN 17 mg/dL 6-24 Creatinine, Serum 1.16 mg/dL 0.57-1.00 eGFR If NonAfricn Am 52 mL/min/1.73 >59 eGFR If Africn Am 60 mL/min/1.73 >59 BUN/Creatinine Ratio 15 9-23 Sodium, Serum 143 mmol/L 134-144 Potassium, Serum 4.8 mmol/L 3.5-5.2 Chloride, Serum 102 mmol/L 96-106 Carbon Dioxide, Total 24 mmol/L 18-29 Calcium, Serum 9.6 mg/dL 8.7-10.2 Protein, Total, Serum 6.8 g/dL 6.0-8.5 Albumin, Serum 4.1 g/dL 3.5-5.5 Globulin, Total 2.7 g/dL 1.5-4.5 A/G Ratio 1.5 1.2-2.2 Bilirubin, Total 0.2 mg/dL 0.0-1.2 Alkaline Phosphatase, S 113 IU/L 39-117 AST (SGOT) 15 IU/L 0-40 ALT (SGPT) 10 IU/L 0-32 TSH - 09/20/16 17:28 TSH 3.140 uIU/mL 0.450-4.500 Vitamin D, 25-Hydroxy - 09/20/16 17:28 Vitamin D, 25-Hydroxy 21.4 ng/mL 30.0-10 0.0 Complete blood count (CBC) with automate d [...] urinalysis with reflex to culture NO NRG Urinalysis, Complete - 10/26/16 14:20 Specific [place] 1.021 1.005-1.030 pH 5.5 5.0-7.5 Urine-Color Yellow Yellow Appearance Cloudy Clear WBC Esterase 3+ Negative Protein Negative Negative/Trace Glucose Negative Negative Ketones Trace Negative Occult Blood Negative Negative Bilirubin Negative Negative Urobilinogen,Semi-Qn 0.2 mg/dL 0.2-1.0 Nitrite, Urine Negative Negative Microscopic Examination See below: Microscopic Examination - 10/26/16 14:20 WBC >30 /hpf 0 - 5 RBC 0-2 /hpf 0 - 2 Epithelial Cells (non renal) >10 /hpf 0 - 10 Mucus Threads Present Not Estab. Bacteria Moderate None seen/Few Renal Panel (10) - 10/26/16 14:20 Glucose, Serum 103 mg/dL 65-99 BUN 24 mg/dL 6-24 Creatinine, Serum 1.66 mg/dL 0.57-1.00 eGFR If NonAfricn Am 34 mL/min/1.73 >59 eGFR If Africn Am 39 mL/min/1.73 >59 BUN/Creatinine Ratio 14 9-23 Sodium, Serum 143 mmol/L 134-144 Potassium, Serum 4.8 mmol/L 3.5-5.2 Chloride, Serum 97 mmol/L 96-106 Carbon Dioxide, Total 25 mmol/L 18-29 Calcium, Serum 9.6 mg/dL 8.7-10.2 Albumin, Serum 4.5 g/dL 3.5-5.5 Phosphorus, Serum 5.3 mg/dL 2.5-4.5 Complete urinalysis with reflex to cultu re [...] 12/12/16 19:20 FREE TEXT EXTERNAL SEE COMMENT [facility] QUANTITY OF GROWTH Isolated [facility] Bacterial blood culture [id number] [facility] Bacterial blood culture - 12/12/16 19:20 Bacterial blood culture NG [facility] Tick identification panel - 12/12/16 19: 40 Serum Ehrlichia chaffeensis IgG antibody detection <1:16 <1:16 Serum Ehrlichia chaffeensis IgM antibody detection <1:10 <1:10 Serum Rickettsia rickettsii IgG antibody assay (units/ volume) < <1:16 [employer] [place] spotted fever panel < <1:10 Francisella tularensis antibody assay <1:20 [facility] LYME AB G M 0.21 % 0.00-0.89 [...] plasma calcium measurement (mass/volume) 9.1 mg/dL 8.5-10.1 Vitamin D, 25-Hydroxy - 01/11/17 15:51 Vitamin D, 25-Hydroxy 27.8 ng/mL 30.0-10 0.0 VITAMIN D, 25-H - 01/11/17 15:51 Vitamin D, 25-Hydroxy 27.8 ng/mL 30.0-10 0.0 TRILEPTAL (OXCARBAZEPIN) - 01/17/17 14:2 1 Oxcarbazepine 7 ug/mL 10-35 TSH - 01/17/17 14:21 TSH 8.240 uIU/mL 0.450-4.500 Oxcarbazepine (Trileptal),S - 01/17/17 1 4:21 Oxcarbazepine 7 ug/mL 10-35 CULTURE, URINE - [...] culture - 06/01/17 13:10 Bacterial urine culture [id number] NRG COLONY COUNT 10,000/ML - 100,000/ML NRG [...] test by minimum inhibitory concentration - NR RENAL PROFILE - 07/05/17 17:10 GLUCOSE 78 mg/dL 65-99 UREA NITROGEN (BUN) 33 mg/dL 7-25 CREATININE 1.74 mg/dL 0.50-1.05 eGFR NON-AFR. URUGUAYAN 32 mL/min/1.73m2 > OR = 60 eGFR 37 mL/min/1.73m2 > OR = 60 BUN/CREATININE RATIO 19 (calc) 6-22 SODIUM 141 mmol/L 135-146 POTASSIUM 4.3 mmol/L 3.5-5.3 CHLORIDE 106 mmol/L 98-110 CARBON DIOXIDE 21 mmol/L 20-31 CALCIUM 9.8 mg/dL 8.6-10.4 ALBUMIN 4.6 g/dL 3.6-5.1 PHOSPHATE ( PHOSPHORUS) 4.5 mg/dL 2.5- 4.5 Bacterial urine culture - 07/17/17 16:37 Bacterial urine culture [id number] NRG COLONY COUNT <10,000 NRG FTX;REPORTABLE SENSITIVITY REPORTED AT 1047, 4-5-1 8 [facility] Bacterial susceptibility panel - 8 16:37 Gentamicin [...] susceptibility test by minimum inhibitory concentration - [facility] Bacterial susceptibility panel - 16:37 Gentamicin susceptibility test by minimum inhibitory [...] culture - 09/21/17 17:00 Bacterial urine culture [id number] NRG COLONY COUNT >100,000/ML NRG FTX;REPORTABLE RML [...] culture - 07/17/18 17:18 Bacterial urine culture [id number] NRG COLONY COUNT >100,000/ML NRG FTX;REPORTABLE SENSITIVITY [...] 15:20 FREE TEXT EXTERNAL ID REPORTED BY [facility] 08/04 17:05 NRG QUANTITY OF GROWTH Isolated NRG Bacterial blood culture [id number] [facility] FREE TEXT ENTRY 2 [facility] REPORTED SUSCEPTIBILITY 08/06 9:05 NRG [facility] SENSITIVITY MAIN LAB - 08/03/18 15:2 0 [...] OF GROWTH Isolated NRG Bacterial blood culture [id number] [facility] FREE TEXT ENTRY 2 ORGANISM ID REPORT [...] culture - 08/03/18 16:09 Bacterial urine culture [id number] NRG COLONY COUNT >100,000/ML NRG FTX;REPORTABLE SUSCEPTIBILITY REPORTED 08-05-18 05. NRG FREE TEXT ENTRY 3 ORGANISM ID REPORT [facility] [place] 08/04 18:0 5 NRG RML Sensitivity Panel [...] 13:03 Bacteria identification in wound by culture [id number] NRG FREE TEXT EXTERNAL SUSCEPTIBILITY REPORTED 01-03-191233 NRG QUANTITY OF GROWTH Rare NRG FREE TEXT ENTRY 2 RESISTANT ORGANISM/CONTACT PRECA UTIONS NRG CALL POSITIVES (F1 HELP) MRSA CALLED [place] [facility] [place] Y/WC NURSE 1233/KD NRG PBP2 METHICILLIN RESISTANT [...] PARATHYROID HORMONE, INTACT 15 pg/mL 14 -64 [id number] - 02/10/19 09:22 Serum or plasma urea nitrogen measurement (mass/volume ) 21 mg/dL 7-18 Serum or plasma creatinine measurement (mass/volume) 1.42 mg/dL 0.60-1.30 Serum or plasma urea nitrogen/creatinine mass ratio 15 NRG Serum or plasma creatinine measurement w ith calculation of estimated glomerular filtration rate 38 NRG LIPID PANEL - 03/31/19 13:39 CHOLESTEROL, TOTAL [...] 03/31/19 13:39 CULTURE, URINE, ROUTINE SEE NOTE NRG CULTURE, URINE - 06/10/19 13:11 CULTURE, URINE, ROUTINE SEE NOTE NR RENAL PROFILE - 07/23/19 12:17 GLUCOSE 89 mg/dL 65-139 UREA NITROGEN (BUN) 28 mg/dL 7-25 CREATININE 1.32 mg/dL 0.50-1.05 eGFR NON-AFR. URUGUAYAN 44 mL/min/1.73m2 > OR = 60 eGFR [...] PARATHYROID HORMONE, INTACT 23 pg/mL 14 -64 Capillary blood glucose measurement by g lucometer (mass/volume) - 08/01/19 10:43 Capillary blood glucose measurement by glucometer (mas s/volume) 106 mg/dL 70-110 Complete blood count (CBC) with automate d white blood cell (WBC) differential - 08/01/19 10:50 Blood leukocytes automated count (number/volume) 10.6 10*3/uL 4.3-11.0 Blood erythrocytes automated count (number/volume) 3.52 10*6/uL 4.35-5.85 Venous blood hemoglobin measurement (mass/volume) 10.9 g/dL 11.5-16.0 Blood hematocrit (volume fraction) 33 % 35-52 Automated erythrocyte mean corpuscular volume 93 [ foz_us] 80-99 Automated erythrocyte mean corpuscular h emoglobin (mass per erythrocyte) 31 pg 25-34 Automated erythrocyte mean corpuscular h emoglobin concentration measurement (mass/volume) 33 g/dL 32-36 Automated erythrocyte distribution width ratio 13. 0 % 10.0- 14.5 Automated blood platelet count (count/volume) 237 10*3/uL 130-400 Automated blood platelet mean volume measurement 10.2 [foz_us] 7.4-10.4 Automated blood neutrophils/100 leukocytes 68 % 42-75 Automated blood lymphocytes/100 leukocytes 19 % 12-44 Blood monocytes/100 leukocytes 9 % 0-12 Automated blood eosinophils/100 leukocytes 3 % 0-10 Automated blood basophils/100 leukocytes 1 % 0-10 Blood neutrophils automated count (number/volume) 7.3 10*3 1.8-7.8 Blood lymphocytes automated count (number/volume) 2.1 10*3 1.0-4.0 Blood monocytes automated count (number/volume) 0. 9 10*3 0.0-1.0 Automated eosinophil count 0.3 10*3/uL 0 .0-0.3 Automated blood basophil count (count/volume) 0.1 10*3/uL 0.0-0.1 Blood lactic acid measurement (moles/vol ume) - 08/01/19 10:50 Blood lactic acid measurement (moles/volume) 0.62 mmol/L 0.50-2.00 Comprehensive metabolic panel - 08/01/19 10:50 Serum or plasma sodium measurement (moles/volume) 140 mmol/L 135-145 Serum or plasma potassium measurement (moles/volume) 4.3 mmol/L 3.6-5.0 Serum or plasma chloride measurement (moles/volume) 106 mmol/L 98-107 Carbon dioxide 23 mmol/L 21-32 Serum or plasma anion gap determination (moles/volume) 11 mmol/L 5-14 Serum or plasma urea nitrogen measurement (mass/volume ) 19 mg/dL 7-18 Serum or plasma creatinine measurement (mass/volume) 1.25 mg/dL 0.60-1.30 Serum or plasma urea nitrogen/creatinine mass ratio 15 NRG Serum or plasma creatinine measurement w ith calculation of estimated glomerular filtration rate 44 NRG Serum or plasma glucose measurement (mass/volume) 104 mg/dL 70-105 Serum or plasma calcium measurement (mass/volume) 9.2 mg/dL 8.5-10.1 Serum or plasma total bilirubin measurement (mass/volu me) 0.3 mg/dL 0.1-1.0 Serum or plasma alkaline phosphatase kina surement (enzymatic activity/volume) 112 U/L 40-136 Serum or plasma aspartate aminotransfera se measurement (enzymatic activity/volume) 13 U/L 5-34 Serum or plasma alanine aminotransferase measurement (enzymatic activity/volume) 9 U/L 0-55 Serum or plasma protein measurement (mass/volume) 6.9 g/dL 6.4-8.2 Serum or plasma albumin measurement (mass/volume) 4.0 g/dL 3.2-4.5 CALCIUM CORRECTED 9.2 mg/dL 8.5-10.1 Capillary blood glucose measurement by g lucometer (mass/volume) - 08/01/19 16:38 Capillary blood glucose measurement by glucometer (mas s/volume) 91 mg/dL 70-110 Capillary blood glucose measurement by g lucometer (mass/volume) - 08/01/19 20:08 Capillary blood glucose measurement by glucometer (mas s/volume) 112 mg/dL 70-110 Complete blood count (CBC) with automate d white blood cell (WBC) differential - 08/02/19 04:36 Blood leukocytes automated count (number/volume) 7.4 10*3/uL 4.3-11.0 Blood erythrocytes automated count (number/volume) 3.29 10*6/uL 4.35-5.85 Venous blood hemoglobin measurement (mass/volume) 10.1 g/dL 11.5-16.0 Blood hematocrit (volume fraction) 31 % 35-52 Automated erythrocyte mean corpuscular volume 95 [ foz_us] 80-99 Automated erythrocyte mean corpuscular h emoglobin (mass per erythrocyte) 31 pg 25-34 Automated erythrocyte mean corpuscular h emoglobin concentration measurement (mass/volume) 32 g/dL 32-36 Automated erythrocyte distribution width ratio 13. 1 % 10.0- 14.5 Automated blood platelet count (count/volume) 213 10*3/uL 130-400 Automated blood platelet mean volume measurement 10.8 [foz_us] 7.4-10.4 Automated blood neutrophils/100 leukocytes 58 % 42-75 Automated blood lymphocytes/100 leukocytes 25 % 12-44 Blood monocytes/100 leukocytes 10 % 0-12 Automated blood eosinophils/100 leukocytes 6 % 0-10 Automated blood basophils/100 leukocytes 1 % 0-10 Blood neutrophils automated count (number/volume) 4.3 10*3 1.8-7.8 Blood lymphocytes automated count (number/volume) 1.9 10*3 1.0-4.0 Blood monocytes automated count (number/volume) 0. 8 10*3 0.0-1.0 Automated eosinophil count 0.4 10*3/uL 0 .0-0.3 Automated blood basophil count (count/volume) 0.1 10*3/uL 0.0-0.1 Comprehensive metabolic panel - 08/02/19 04:36 Serum or plasma sodium measurement (moles/volume) 140 mmol/L 135-145 Serum or plasma potassium measurement (moles/volume) 4.4 mmol/L 3.6-5.0 Serum or plasma chloride measurement (moles/volume) 107 mmol/L 98-107 Carbon dioxide 19 mmol/L 21-32 Serum or plasma anion gap determination (moles/volume) 14 mmol/L 5-14 Serum or plasma urea nitrogen measurement (mass/volume ) 26 mg/dL 7-18 Serum or plasma creatinine measurement (mass/volume) 1.77 mg/dL 0.60-1.30 Serum or plasma urea nitrogen/creatinine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
== END 2019-08-05 20:28 | disposition home or self-care (01) ==
LOC: EDUNIT# 19:16 → ER 19:18
DX: L76.22 Postprocedural hemorrhage of skin and subcutaneous tissue following other procedure (principal); J45.909 Unspecified asthma, uncomplicated; I10 Essential (primary) hypertension; I25.10 Atherosclerotic heart disease of native coronary artery without angina pectoris; E78.00 Pure hypercholesterolemia, unspecified; K21.9 Gastro-esophageal reflux disease without esophagitis; E03.9 Hypothyroidism, unspecified; F41.9 Anxiety disorder, unspecified; F32.9 Major depressive disorder, single episode, unspecified; Z88.6 Allergy status to analgesic agent; Z88.2 Allergy status to sulfonamides; Z88.8 Allergy status to other drugs, medicaments and biological substances; Z79.82 Long term (current) use of aspirin; Z79.51 Long term (current) use of inhaled steroids; Z77.22 Contact with and (suspected) exposure to environmental tobacco smoke (acute) (chronic); Z82.49 Family history of ischemic heart disease and other diseases of the circulatory system; Z80.8 Family history of malignant neoplasm of other organs or systems
CPT/HCPCS: 99282

== ENCOUNTER 2019-08-06 08:26 | Emergency (ER) | payer MEDICARE, MEDICAID ==
[~2019-08-06] VITALS: Ht 154 cm; Wt 113.6 kg
--- NOTE | 2019-08-06 08:45 | ED Suture Removal/Wound Check ---
Suture/Wound Re-check Suture Removal/Wound Recheck : Suture Removal/Wound Recheck: Dry/sterile dressing-appl, Packing removed Progress The patient had abscess and facial cellulitis I&D on Sunday. She is on antibiotics. She had it repacked yesterday and given instructions to return today to have the packing removed and reexamined. According to the previous notes the wound does seem to be progressing appropriately. She's having some significant pain and was given Percocet however she said she has not taken any of that today. She is able to open her eye on the right side. Afebrile otherwise aseptic vital signs. Were having her soak it with sterile saline and then we'll remove it and replace it if necessary. General Appearance: WD/WN, mild distress Neuro/Tendon: normal sensation, normal motor functions, normal tendon functions, responds to pain Skin Exam: other (ecchymotic, warm dry right facial skin. Not erythematous. Area of induration approximately 5 cm x 3 cm over the right maxilla. There is a packed wound with quarter inch gauze. ) Comments Repacked the wound with 7 cm of quarter inch iodoform gauze. Covered with Telfa, gauze and wrapped with Coban. Physical Exam Vital Signs Vital Signs - First Documented 08/06/19 08:31 Temp 37.0 Pulse 75 Resp 18 B/P (MAP) 181/108 Pulse Ox 95 Capillary Refill : General Appearance: WD/WN, mild distress HEENT: PERRL/EOMI, pharynx normal Neck: non-tender, full range of motion, supple, normal inspection Cardiovascular: normal peripheral pulses, regular rate, rhythm Respiratory: no respiratory distress, no accessory muscle use Neurologic/Psychiatric: hand shoe cutter II-XII nml as tested, no motor/sensory deficits, alert, normal mood/affect, oriented x 3 Skin: ecchymosis, other (edema and induration surrounding a previous I&D on her right maxilla.) Departure Impression Primary Impression: Cellulitis, periorbital Qualified Codes: L03.213 - Periorbital cellulitis Additional Impression: Visit for wound check Disposition: 01 HOME, SELF-CARE Condition: Stable Departure-Patient Inst. Decision time for Depature: 08:55 Referrals: [facility] (PCP) Primary Care Physician ANN MARIE JARA MD (Family) Primary Care Physician Patient Instructions: Cellulitis (Skin Infection), Adult (DC) Add. Discharge Instructions: Keep the skin clean with regular soap and water at least once a day. Change the dressing at least once a day or more often if it becomes soiled. Continue taking the antibiotics as prescribed. If you feel like you're wound is getting worse or persisting for more than one to 2 weeks then you need follow-up with your primary care doctor. If you are Having pain then you may use the Percocet as prescribed. Warm compresses applied directly to the face can be helpful for swelling and pain. All discharge instructions reviewed with patient and/or family. Voiced understanding. LETTY SHERWOOD Aug 06, 2019 08:45
[2019-08-06 08:57] VITALS: BP 181/93
--- NOTE | 2019-08-06 08:57 | NUR ---
PACKING REPLACED BY DR SHERWOOD AND REPLACED DRESSING APPLIED BY
== END 2019-08-06 09:01 | disposition home or self-care (01) ==
LOC: EDUNIT# 08:26 → ER 08:28
DX: L03.213 Periorbital cellulitis (principal)
CPT/HCPCS: 99282

== ENCOUNTER → 2020-03-05 | Outpatient (CLI) | payer MEDICARE, MEDICAID ==
[~2020-03-05] MED LIST changes: +AMLO-250 PO; +AMLO-251 PO; -AMLO10TA7 PO; -AMLO5TAB9 PO; +ASCO100024 PO; -ASCO10006 PO; +ASCO250T16 PO; +ASPI-1238 PO; -ASPI-983 PO; -C250T PO; -CETI10TA21 PO; +CETI10TA49 PO; -OXYC-465 PO; +OXYC-556 PO; -PANT40TA3 PO; +PANT40TA52 PO
[2020-03-05 13:23] LABS: CREATININE SERUM 1.47 MG/DL (0.60-1.30)
== END ==
LOC: RAD 12:50
PROVIDERS: ATTEND Nurse Practitioner Family
DX: J45.909 Unspecified asthma, uncomplicated (principal); R91.1 Solitary pulmonary nodule; R53.83 Other fatigue
CPT/HCPCS: 36415; 82565; 84520

== ENCOUNTER → 2020-03-05 | Outpatient (CLI) | payer MEDICARE, MEDICAID ==
[~2020-03-05] MED LIST changes: +RT-ALBUTEROL SULF 2.5 MG/3 ML PRE-MIX VIAL INH ONE
--- NOTE | 2020-03-05 14:26 | Diagnostic Imaging Report ---
EXAMINATION: CT Chest without contrast. TECHNIQUE: Multiple contiguous axial images were obtained through the chest without the use of intravenous contrast. All CT scans use one or more of the following dose optimizing techniques: automated exposure control, MA and/or KvP adjustment based on a patient size and exam type, or iterative reconstruction. HISTORY: Shortness of breath COMPARISON: 07/21/2019 FINDINGS: There is no edema or pneumonia. No pleural effusion. No pneumothorax. No suspicious nodules. There is no axillary or supraclavicular lymphadenopathy. There is a stable 10 mm short axis right paratracheal lymph node. Heart size is normal. There are no coronary artery calcifications. No pericardial effusion. Aorta is normal in caliber. Limited views of the upper abdomen show changes of cholecystectomy. There are no suspicious osseus lesions. IMPRESSION: 1. No acute abnormality in the chest. Dictated by: Dictated on workstation # [id number]
--- NOTE | 2020-03-05 14:44 | Diagnostic Imaging Report ---
PROCEDURE: US Venous Lower Ext Ibrahima. TECHNIQUE: Multiple real-time grayscale images were obtained over the lower extremities in various projections, bilaterally. Additional duplex Doppler and color Doppler images were also obtained. INDICATION: Bilateral lower extremity edema and pain. COMPARISON: 06/01/2017. FINDINGS: The bilateral common femoral vein, femoral vein, deep femoral vein and popliteal vein are normal in appearance. These vessels show normal compressibility, color flow and doppler augmentation. The visualized deep calf veins demonstrate no distinct intraluminal thrombus. IMPRESSION: No sonographic evidence of deep venous thrombosis in the bilateral lower extremities. Dictated by: Dictated on workstation # [id number]
== END ==
LOC: RAD 13:45
PROVIDERS: ATTEND Nurse Practitioner Family
DX: J45.909 Unspecified asthma, uncomplicated (principal); M79.89 Other specified soft tissue disorders; M79.606 Pain in leg, unspecified; R91.1 Solitary pulmonary nodule
CPT/HCPCS: 71250; 93970; 94060; 94726; 94729

== ENCOUNTER → 2020-03-09 | Outpatient (CLI) | payer MEDICARE, MEDICAID ==
[~2020-03-09] MED LIST changes: -RT-ALBUTEROL SULF 2.5 MG/3 ML PRE-MIX VIAL INH ONE
--- NOTE | 2020-03-09 14:25 | Diagnostic Imaging Report ---
INDICATION: Screening. TECHNIQUE: The current study was also evaluated with a Computer Aided Detection (CAD) system. 3-D Tomographic imaging was also performed. COMPARISON: 11/22/2018, 10/15/2017, and 10/13/2016. FINDINGS: There are scattered fibroglandular densities bilaterally. There is no dominant mass, spiculated lesion, or suspicious calcification identified. The skin, nipples, and axillae are unremarkable. IMPRESSION: Negative. ACR BI-RADS Category 1: Negative. Result letter will be mailed to the patient. Note: At least 10% of breast cancer is not imaged by mammography. Dictated by: Dictated on workstation # [id number]
== END ==
LOC: RAD 13:13
PROVIDERS: ATTEND Physician Assistant
DX: Z12.31 Encounter for screening mammogram for malignant neoplasm of breast (principal)
CPT/HCPCS: 77063; 77067

== ENCOUNTER → 2020-03-10 | Outpatient (CLI) | payer MEDICARE, MEDICAID | LOC: LABNPT 08:41 | PROVIDERS: ATTEND Internal Medicine Critical Care Medicine | DX: Z01.812 Encounter for preprocedural laboratory examination (principal); Z20.828 Contact with and (suspected) exposure to other viral communicable diseases | CPT/HCPCS: 87635 ==

== ENCOUNTER 2020-03-13 19:56 | Outpatient (CLI) | payer MEDICARE, MEDICAID | END 2020-03-14 06:50 | disposition home or self-care (01) | LOC: SLEEP 19:56 | PROVIDERS: ATTEND Nurse Practitioner Family | DX: G47.33 Obstructive sleep apnea (adult) (pediatric) (principal); J45.909 Unspecified asthma, uncomplicated; Z20.828 Contact with and (suspected) exposure to other viral communicable diseases; Z78.9 Other specified health status | CPT/HCPCS: 95811 ==

== ENCOUNTER → 2020-08-31 | Outpatient (CLI) | payer MEDICAID, MEDICARE ==
[~2020-08-31] MED LIST changes: -GEMF600T8 PO; +GEMF600T88 PO; -LISI-552 PO; -LISI10TA2 PO; +LISI10TA25 PO; +LISI20TA26 PO; -MONT10TA26 PO; +MONT10TA32 PO; -OXYC-471 PO; +OXYC1TAB11 PO
== END ==
LOC: LABNPT 06:39
PROVIDERS: ATTEND Orthopaedic Surgery
DX: Z01.812 Encounter for preprocedural laboratory examination (principal); Z20.822 Contact with and (suspected) exposure to COVID-19
CPT/HCPCS: 87635

== ENCOUNTER → 2021-02-16 | Outpatient (CLI) | payer MEDICARE ==
[~2021-02-16] MED LIST changes: +DICL100G13 TOP; -DICL100G31 TOP; -DULO60CA6 PO; +DULO60CA7 PO
--- NOTE | 2021-02-16 13:28 | Diagnostic Imaging Report ---
PROCEDURE: CT chest without contrast. TECHNIQUE: Multiple contiguous axial images were obtained through the chest without the use of intravenous contrast. Auto Exposure Controls were utilized during the CT exam to meet ALARA standards for radiation dose reduction. INDICATION: History of pulmonary nodule, found 3 years ago, follow-up. CORRELATION: CT chest 03/05/2020, 06/02/2017 FINDINGS: Stable, enlarged lymph node in the right paratracheal region. Short axis dimension currently approximately 10 mm, most recently 12 mm. No additional enlarged mediastinal lymphadenopathy on noncontrast study. The heart size is unremarkable. Thoracic aorta normal in contour. The lung ramirez are clear of infiltrate. No significant pleural effusion. Unchanged elevated right diaphragm. Cholecystectomy. Mildly advanced degenerative changes thoracic spine. Thoracic spine stimulator lead remains in place. IMPRESSION: Stable, negative appearing noncontrast CT imaging of the chest. Dictated by: Dictated on workstation # [id number]
== END ==
LOC: RAD 10:57
PROVIDERS: ATTEND Nurse Practitioner Family
DX: R91.1 Solitary pulmonary nodule (principal)
CPT/HCPCS: 71250

== ENCOUNTER → 2021-03-30 | Outpatient (CLI) | payer MEDICARE ==
[~2021-03-30] MED LIST changes: +CYCL10TA25 PO; -CYCL10TA9 PO; +MONT-40 PO; -MONT10TA32 PO
--- NOTE | 2021-03-30 13:17 | Diagnostic Imaging Report ---
Indication: Routine screening. Comparison is made with prior mammogram 03/09/2020 and 11/22/2018. 2-D and 3-D bilateral screening mammography was performed with CAD. Scattered fibroglandular densities are identified bilaterally. The parenchymal pattern is stable. No mass or malignant-appearing microcalcifications are seen. Axillae are unremarkable. IMPRESSION: BI-RADS Category 1 No mammographic features suspicious for malignancy are identified. ACR BI-RADS Category 1: Negative. Result letter will be mailed to the patient. Note: At least 10% of breast cancer is not imaged by mammography. Dictated by: Dictated on workstation # [id number]
== END ==
LOC: RAD 10:18
PROVIDERS: ATTEND Physician Assistant
DX: Z12.31 Encounter for screening mammogram for malignant neoplasm of breast (principal)
CPT/HCPCS: 77063; 77067

== ENCOUNTER 2021-05-13 11:46 | Inpatient (IN) | payer MEDICARE ==
[~2021-05-13] VITALS: Ht 155 cm; Wt 105.7 kg
[2021-05-13] MEDS ORDERED: LACTATED RINGERS 1,000 ML IV SCH (12:15)
[2021-05-13 12:16] LABS: BASOPHILS % (AUTO) 1 % (0-10); EOSINOPHILS % (AUTO) 1 % (0-10); HEMATOCRIT 41 % (35-52); HEMOGLOBIN 13.8 g/dL (11.5-16.0); LYMPHOCYTES % (AUTO) 19 % (12-44); MEAN CORPUSCULAR HEMOGLOBIN 32 pg (25-34); MEAN CORPUSCULAR HGB CONC 34 g/dL (32-36); MEAN CORPUSCULAR VOLUME 93 fL (80-99); MEAN PLATELET VOLUME 11.1 fL (9.0-12.2); MONOCYTES # (AUTO) 0.5 10^3/uL (0.0-1.0); MONOCYTES % (AUTO) 10 % (0-12); NEUTROPHILS # (AUTO) 3.5 10^3/uL (1.8-7.8); NEUTROPHILS % (AUTO) 69 % (42-75); PLATELET COUNT 159 10^3/uL (130-400); WHITE BLOOD COUNT 5.1 10^3/uL (4.3-11.0)
--- NOTE | 2021-05-13 12:18 | ED Cough/URI ---
General Chief Complaint: COVID19 Suspect/Confirmed Stated Complaint: COVID + Nursing Triage Note: PT PRESENTS TO ED VIA EMS FROM [facility] FOR HYPOXIA. PT WAS DIADNOSED WITH COVID ON 05/11. PT REPORTS HER S/S STARTED ON 05/05. AT [facility] PT INITIAL O2 SAT WAS 88% ON RA. Source: patient Exam Limitations: no limitations History of Present Illness Date Seen by Provider: May 13, 2021 Time Seen by Provider: 12:16 Initial Comments to ER by EMS from [facility] where she presented with shortness of breath general fatigue and insomnia. She is Covid positive. She became symptomatic on 05/05/2021 and tested positive on 05/11/2021. She has hypertension and stage III chronic kidney disease, she is not vaccinated against Covid. She was found to be 88% on room air and felt lightheaded so an ambulance was called to transport her here to the emergency room. She is not oxygen dependent at home. Timing/Duration: constant Severity/Quality: moderate Prior Episodes/Possible Cause: no prior episodes Associated Symptoms: cough, fever/chills, muscle aches, shortness of breath Allergies and Home Medications Allergies Coded Allergies: NSAIDS (Non-Steroidal Anti-Inflamma (Verified Allergy, Unknown, 08/03/18) PATIENT REPORTED THAT SHE HAS STAGE 4 RENAL DISEASE Sulfa (Sulfonamide Antibiotics) (Verified Allergy, Unknown, 08/03/18) diltiazem (Unverified Allergy, Unknown, 10/10/17) Patient Home Medication List Home Medication List Reviewed: Yes Acetaminophen (Tylenol Extra Strength) 500 Mg Tablet, 500 MG PO TID, (Reported) Entered as Reported by: FRANCO ROMANO on 08/01/19 1310 Albuterol Sulfate (Proair Hfa) 1 Puff Puff, 2 PUFF IH Q4H PRN for WHEEZING, (Reported) Entered as Reported by: GHULAM BURNETT on 08/04/18 0758 Aspirin (Aspirin) 325 Mg Tablet, 325 MG PO DAILY, (Reported) Entered as Reported by: GHULAM BURNETT on 08/04/18 0758 Brexpiprazole (Rexulti) 2 Mg Tablet, 2 MG PO DAILY, (Reported) Entered as Reported by: FRANCO ROMANO on 08/01/19 1252 Cholecalciferol (Vitamin D3) (Vitamin D3) 50 Mcg Capsule, 50 MCG PO DAILY, (Reported) Entered as Reported by: FRANCO ROMAON on 08/01/19 1257 Diclofenac Sodium (Diclofenac Sodium) 100 Gm Gel..gram., 1 APPFUL TOP BID, (Reported) Entered as Reported by: FRANCO ROMANO on 08/01/19 1252 Duloxetine HCl (Duloxetine HCl) 60 Mg Capsule.dr, 60 MG PO DAILY, (Reported) Entered as Reported by: VIV MCCRACKEN on 06/01/171709 Ezetimibe (Zetia) 10 Mg Tablet, 10 MG PO DAILY, (Reported) Entered as Reported by: GHULAM BURNETT on 08/04/18 075 Ferrous Sulfate (Ferrous Sulfate) 325 Mg Tablet, 325 MG PO TID, (Reported) Entered as Reported by: GHULAM BURNETT on 08/04/18 075 Fish Oil/Dha/Epa (Fish Oil 1,200 mg Fish Oil) 1 Each Capsule, 1 EACH PO TID, (Reported) Entered as Reported by: GHULAM BURNETT on 08/04/18 075 Fluticasone Propionate (Fluticasone Propionate) 16 Gm [place].susp, 1 SPRAY NS BID PRN for ALLERGIES/CONGESTION, (Reported) Entered as Reported by: VIV MCCRACKEN on 12/13/16 0859 Fluticasone/Vilanterol (Breo Ellipta 200-25 Mcg INH) 1 Each Blst.w.dev, 1 PUFF PO DAILY, (Reported) Entered as Reported by: FRANCO ROMANO on 08/01/19 1252 Gemfibrozil (Gemfibrozil) 600 Mg Tablet, 600 MG PO BID, (Reported) Entered as Reported by: VIV MCCRACKEN on 12/13/16 0859 Ipratropium [place] (Ipratropium [place]) 15 Ml Naspr, 1 SPRAYS NS TID, (Reported) Entered as Reported by: VIV MCCRACKEN on 06/01/171709 Levothyroxine Sodium (Levothyroxine Sodium) 150 Mcg Tablet, 150 MCG PO DAILY, (Reported) Entered as Reported by: VIV MCCRACKEN on 06/01/17 171 Linezolid (Zyvox) 600 Mg Tablet, 600 MG PO BID Prescribed by: SURAJ LAND on 08/05/19 1129 Lisinopril (Lisinopril) 20 Mg Tablet, 20 MG PO DAILY, (Reported) Entered as Reported by: FRANCO ROMANO on 08/01/19 1252 Methylcellulose (Fiber Therapy) 500 Mg Tablet, 500 MG PO DAILY, (Reported) Entered as Reported by: GHULAM BURNETT on 08/04/18 0758 Metoprolol Succinate (Metoprolol Succinate) 50 Mg Tab.er.24h, 50 MG PO DAILY, (Reported) Entered as Reported by: COBY VO on 05/29/18 0842 Montelukast Sodium (Montelukast Sodium) 10 Mg Tablet, 10 MG PO HS, (Reported) Entered as Reported by: FRANCO ROMANO on 08/01/19 1252 Nystatin (Nystatin) 100,000 Unit/1 Ml Oral.susp, 4 ML PO PRN PRN for THURSH FROM [place], (Reported) Entered as Reported by: FRANCO ROMANO on 08/01/19 1254 Oxycodone HCl/Acetaminophen (Oxycodone-Acetaminophen 5-325) 1 Each Tablet, 1 EA PO DAILY PRN for PAIN-MODERATE (5-7) Prescribed by: SURAJ LAND on 08/05/19 1129 Pantoprazole Sodium (Pantoprazole Sodium) 40 Mg Tablet.dr, 40 MG PO DAILY, (Reported) Entered as Reported by: VIV MCCRACKEN on 06/01/17 1710 Pregabalin (Lyrica) 150 Mg Capsule, 150 MG PO TID, (Reported) Entered as Reported by: VIV MCCRACKEN on 01/20/15 1145 Propylene Glycol (Systane Complete) 1.5 Ml Drops, 1 DROP OU BID PRN for DRY EYES, (Reported) Entered as Reported by: FRANCO ROMANO on 08/01/19 1310 Ropinirole HCl (Ropinirole HCl) 5 Mg Tablet, 5 MG PO HS, (Reported) Entered as Reported by: COBY VO on 05/29/18 0839 Ropinirole HCl (Ropinirole HCl) 5 Mg Tablet, 2.5 MG PO 1700, (Reported) Entered as Reported by: FRANCO ROMANO on 08/01/19 1252 Sucralfate (Sucralfate) 1 Gm Tablet, 1 GM PO BID, (Reported) Entered as Reported by: FRANCO ROMANO on 08/01/19 1252 Trazodone HCl (Trazodone HCl) 50 Mg Tablet, 50 MG PO HS, (Reported) Entered as Reported by: FRANCO ROMANO on 08/01/19 1252 Review of Systems Review of Systems Constitutional: see HPI EENTM: see HPI Respiratory: see HPI, cough Cardiovascular: no symptoms reported Genitourinary: no symptoms reported Musculoskeletal: no symptoms reported Skin: no symptoms reported Psychiatric/Neurological: No Symptoms Reported Hematologic/Lymphatic: No Symptoms Reported Immunological/Allergic: no symptoms reported Past Pzectpa-Afltmo-Moxczr Hx Patient Social History Tobacco Use?: No Substance use?: No Alcohol Use?: No Pt feels they are or have been: No Immunizations Up To Date Tetanus Booster (TDap): Unknown Seasonal Allergies Seasonal Allergies: No Past Medical History Surgery/Hospitalization HX: PMH" AFIB, HTN, ASTHMA, HYPERLIPIDEMIA, HYPOTHYROIDISM, ANEMIA, KIDNEY DISEASE. Surgeries: Yes ( lt endolymphatic shunt mastoids, esphageal zenker diverticulum removed) Appendectomy, Bladder Surgery, Section, Gallbladder, Hysterectomy, Orthopedic Respiratory: Yes (ASTHMA) Asthma, Sleep Apnea Currently Using CPAP: Yes Currently Using BIPAP: No Cardiac: Yes Coronary Artery Disease, High Cholesterol, Hypertension, Valvular Heart Disease Neurological: Yes Headaches /Migraines Reproductive Disorders: No Sexually Transmitted Disease: No Genitourinary: Yes Renal Failure Gastrointestinal: Yes (Zenker's diverticulia removed 2014) Gastroesophageal Reflux Musculoskeletal: Yes (FIBROMYALGIA) Arthritis, Fibromyalgia Endocrine: Yes (hypo thyroid) Hypothyroidsim HEENT: Yes Cataract Cancer: No Psychosocial: Yes Anxiety, Depression Integumentary: No Blood Disorders: No Adverse Reaction/Blood Tranf: No Family Medical History Arthritis 19 FATHER 19 MOTHER Asthma 19 FATHER 19 MOTHER Cardiovascular disease 19 FATHER 19 MOTHER Cataracts 19 FATHER 19 MOTHER Completed stroke 19 FATHER 19 MOTHER Congenital heart disease Coronary thrombosis 19 MOTHER Deafness or hearing loss 19 FATHER 19 MOTHER Diabetes mellitus 19 FATHER 19 MOTHER Headache disorder 19 MOTHER Hypercholesterolemia 19 MOTHER Hypertension 19 FATHER 19 MOTHER Kidney disease 19 MOTHER Myocardial infarction 19 FATHER 19 MOTHER Neoplasm 19 MOTHER (SKIN CA) Thyroid disease 19 MOTHER Visual disorder 19 MOTHER Physical Exam Vital Signs - First Documented 05/13/21 12:01 Temp 38.3 Pulse 101 Resp 24 B/P (MAP) 124/71 (88) Pulse Ox 96 Capillary Refill : Less Than 3 Seconds Height: 5'1.00" Weight: 233lbs. 5.0oz. 105.348317ef; 43.00 BMI Method:Actual General Appearance: WD/WN, no apparent distress, obese, other (On 3 L she is 95%. She had one blood pressure of 79 systolic, another of 88 systolic) Eyes: Bilateral Eye Normal Inspection, Bilateral Eye PERRL, Bilateral Eye EOMI Respiratory: normal breath sounds, no respiratory distress, no accessory muscle use Cardiovascular: regular rate, rhythm, no murmur Gastrointestinal: normal bowel sounds, non tender, soft Neurologic/Psychiatric: alert, normal mood/affect, oriented x 3 Skin: normal color, warm/dry Progress/Results/Core Measures Suspected Sepsis SIRS Temperature: Pulse: 101 Respiratory Rate: 24 Laboratory Tests 05/13/21 11:57: White Blood Count 5.1 Blood Pressure 124 /71 Mean: 88 Laboratory Tests 05/13/21 11:57: Creatinine 1.75H, INR Comment 1.0, Platelet Count 159, Total Bilirubin 0.4 Results/Orders Lab Results Laboratory Tests Test 05/13/21 11:57 Range/Units White Blood Count 5.1 4.3-11.0 10^3/uL Red Blood Count 4.38 3.80-5.11 10^6/uL Hemoglobin 13.8 11.5-16.0 g/dL Hematocrit 41 35-52 % Mean Corpuscular Volume 93 80-99 fL Mean Corpuscular Hemoglobin 32 25-34 pg Mean Corpuscular Hemoglobin Concent 34 32-36 g/dL Red Cell Distribution Width 12.3 10.0-14.5 % Platelet Count 159 130-400 10^3/uL Mean Platelet Volume 11.1 9.0-12.2 fL Immature Granulocyte % (Auto) 1 % Neutrophils (%) (Auto) 69 42-75 % Lymphocytes (%) (Auto) 19 12-44 % Monocytes (%) (Auto) 10 0-12 % Eosinophils (%) (Auto) 1 0-10 % Basophils (%) (Auto) 1 0-10 % Neutrophils # (Auto) 3.5 1.8-7.8 10^3/uL Lymphocytes # (Auto) 1.0 1.0-4.0 10^3/uL Monocytes # (Auto) 0.5 0.0-1.0 10^3/uL Eosinophils # (Auto) 0.0 0.0-0.3 10^3/uL Basophils # (Auto) 0.0 0.0-0.1 10^3/uL Immature Granulocyte # (Auto) 0.1 0.0-0.1 10^3/uL Prothrombin Time 13.6 12.2-14.7 SEC INR Comment 1.0 0.8-1.4 D-Dimer 0.74 H 0.00-0.49 UG/ML Sodium Level 137 135-145 MMOL/L Potassium Level 4.9 3.6-5.0 MMOL/L Chloride Level 107 98-107 MMOL/L Carbon Dioxide Level 16 L 21-32 MMOL/L Anion Gap 14 5-14 MMOL/L Blood Urea Nitrogen 26 H 7-18 MG/DL Creatinine 1.75 H 0.60-1.30 MG/DL Estimat Glomerular Filtration Rate 33 BUN/Creatinine Ratio 15 Glucose Level 118 H 70-105 MG/DL Calcium Level 8.8 8.5-10.1 MG/DL Corrected Calcium 8.6 8.5-10.1 MG/DL Total Bilirubin 0.4 0.1-1.0 MG/DL Aspartate Amino Transf (AST/SGOT) 66 H 5-34 U/L Alanine Aminotransferase (ALT/SGPT) 44 0-55 U/L Alkaline Phosphatase 86 40-136 U/L C-Reactive Protein High Sensitivity 2.56 H 0.00-0.50 MG/DL Total Protein 7.6 6.4-8.2 GM/DL Albumin 4.2 3.2-4.5 GM/DL Procalcitonin 0.07 <0.10 NG/ML My Orders Orders - FELICIANO WAYNE TITLE COORDINATOR Cbc With Automated Diff (05/13/21 12:08) Comprehensive Metabolic Panel (05/13/21 12:08) Ua Culture If Indicated (05/13/21 12:08) Chest 1 View, Ap/Pa Only (05/13/21 12:08) Ed Iv/Invasive Line Start (05/13/21 12:08) Protime With Inr (05/13/21 12:08) Procalcitonin (Pct) (05/13/21 12:08) Fibrin Degradation Products (05/13/21 12:08) Hs C Reactive Protein (05/13/21 12:08) Lactated Ringers (Lr 1000 Ml Iv Solution (05/13/21 12:15) Arterial Blood Gas (05/13/21 14:05) Vital Signs/I&O 05/13/21 12:01 Temp 38.3 Pulse 101 Resp 24 B/P (MAP) 124/71 (88) Pulse Ox 96 Capillary Refill : Less Than 3 Seconds Blood Pressure Mean: 88 Departure Communication (Admissions) 1406-spoke with Dr. Land, will admit. After 1 L of IV fluids by EMS and 1 L by us her blood pressure is 101/85 heart rate 106 oxygen 96% on 3.5 L. Respiratory rate 22 NAME: BRANDON MARQUEZ MED REC#: [id number] PT STATUS: REG ER : 1960 PHYSICIAN: FELICIANO WAYNE APRN ADMIT DATE: 05/13/21/ER Draft Date of Exam:05/13/21 CHEST 1 VIEW, AP/PA ONLY EXAMINATION: Chest 1 view HISTORY: COVID + COMPARISON: 08/03/2018 FINDINGS: Heart size and pulmonary vasculature are normal. There are patchy interstitial opacities within the lungs. No pleural effusion or pneumothorax. The osseous structures are intact. IMPRESSION: 1. Patchy interstitial opacities throughout both lungs compatible with history of COVID 19 and pneumonia. Dictated on workstation # [id number] Dict: 05/13/21 1331 Trans: 05/13/21 1336 CVB [id number] Interpreted by: RAJANI LUCIANO DO Electronically signed by: Impression Primary Impression: Hypoxia Additional Impression: COVID-19 Disposition: ADMITTED INPATIENT Condition: Stable Admissions Decision to Admit Reason: Admit from ER (General) Decision to Admit/Date: May 13, 2021 Time/Decision to Admit Time: 13:20 Departure-Patient Inst. Referrals: [facility] [place] ([place]) Primary Care Physician ANN MARIE JARA MD (Family) Primary Care Physician FEILCIANO WAYNE APRN May 13, 2021 12:17
[2021-05-13 12:23] LABS: ALBUMIN 4.2 GM/DL (3.2-4.5); POTASSIUM 4.9 MMOL/L (3.6-5.0)
[2021-05-13 12:24] LABS: CALCIUM 8.8 MG/DL (8.5-10.1); PROTHROMBIN TIME PATIENT 13.6 SEC (12.2-14.7)
[2021-05-13 12:25] LABS: TOTAL PROTEIN 7.6 GM/DL (6.4-8.2)
[2021-05-13 12:27] LABS: BILIRUBIN,TOTAL 0.4 MG/DL (0.1-1.0); FIBRIN DEGRADATION PRODUCTS 0.74 UG/ML (0.00-0.49)
[2021-05-13 12:29] LABS: CREATININE SERUM 1.75 MG/DL (0.60-1.30)
--- NOTE | 2021-05-13 13:36 | Diagnostic Imaging Report ---
EXAMINATION: Chest 1 view HISTORY: COVID + COMPARISON: 08/03/2018 FINDINGS: Heart size and pulmonary vasculature are normal. There are patchy interstitial opacities within the lungs. No pleural effusion or pneumothorax. The osseous structures are intact. IMPRESSION: 1. Patchy interstitial opacities throughout both lungs compatible with history of COVID 19 and pneumonia. Dictated by: Dictated on workstation # [id number]
[2021-05-13 14:58] LABS: ABG BASE EXCESS -4.9 MMOL/L (-2.5-2.5); ABG OXYGEN SATURATION 98 % (94-100); ABG PCO2 39 MMHG (35-45); ABG PO2 107 MMHG (79-93); ABG TCO2 20.9 MMOL/L (21.0-31.0)
[2021-05-13 15:01] LABS: ABG PH 7.33 (7.37-7.43); ALLENS TEST YES-POS; INSPIRED O2 RA; PATIENT TEMP 101; VENTILATOR NO
[2021-05-13] MEDS ORDERED: CALCIUM CARBONATE 500 MG (TUMS) TAB.CHEW PO PRN (15:30)
[2021-05-13] MEDS ORDERED: ONDANSETRON 4 MG (ZOFRAN) ORAL DISSOLVE TAB PO PRN (15:30)
[2021-05-13] MEDS ORDERED: NALOXONE 0.4 MG/ML 1 ML (NARCAN) VIAL IV PRN (15:30)
[2021-05-13] MEDS ORDERED: MELATONIN 3 MG TABLET PO PRN ×2 (15:30→21:00)
[2021-05-13] MEDS ORDERED: BISACODYL 10 MG SUPP (DULCOLAX) PR PRN (15:30)
[2021-05-13] MEDS ORDERED: MILK OF MAGNESIA 400 MG/5 ML 30 ML UDC PO PRN (15:30)
[2021-05-13] MEDS ORDERED: diphenhydrAMINE 25 MG TAB (BENADRYL) PO PRN (15:30)
[2021-05-13] MEDS ORDERED: ONDANSETRON 4 MG/2 ML (SDV) Z0FRAN IV PRN (15:30)
[2021-05-13] MEDS ORDERED: diphenhydrAMINE 50 MG/ML INJ (BENADRYL) IVP PRN (15:30)
[2021-05-13] MEDS ORDERED: polyethylene glycoL POWDER 17 GM (MIRALAX) PACK PO PRN (15:30)
[2021-05-13] MEDS ORDERED: LACTULOSE SYRUP 10GM/15ML (ENULOSE) 30ML UDC PO PRN (15:30)
[2021-05-13] MEDS ORDERED: ANTACID SUSP 30 ML UDC (MYLANTA) PO PRN (15:30)
[2021-05-13 15:59] VITALS: BP 125/66
[2021-05-13 16:00] VITALS: BP 123/71
[2021-05-13] MEDS ORDERED: AMLO-250 PO (17:20)
[2021-05-13] MEDS ORDERED: METH850P3 PO (17:20)
[2021-05-13] MEDS ORDERED: DULO30CA49 PO (17:20)
[2021-05-13] MEDS ORDERED: NFIPRATRNS NS (17:23)
[2021-05-13] MEDS ORDERED: LEVO5TAB12 PO (17:31)
[2021-05-13] MEDS ORDERED: SUMA100T3 PO (17:31)
[2021-05-13] MEDS ORDERED: BREX2TAB PO (17:31)
[2021-05-13] MEDS ORDERED: RAME8TAB18 PO (17:31)
[2021-05-13] MEDS ORDERED: MV-M1TAB20 PO (17:31)
[2021-05-13] MEDS ORDERED: LISI40TA9 PO (17:31)
[2021-05-13] MEDS ORDERED: OMEG1CAP58 PO (17:31)
[2021-05-13] MEDS: inSUlin ASPART (NovoLOG) 1 UNIT/0.01 ML (CHARGE PER UNIT) SC SCH ×2 (17:33→21:37)
[2021-05-13] MEDS: NS IV 1000 ML 1,000 ML IV SCH (18:32)
[2021-05-13] MEDS: RT-ALBUTEROL HFA 8.5 GM INHALER IH SCH ×2 (18:40→22:28)
[2021-05-13] MEDS: RT--FLUTICASONE/SALMETEROL 113-14 (AIRDUO RespiCLICK) IH SCH (18:43)
[2021-05-13 20:00] VITALS: BP 112/59
[2021-05-13] MEDS: DOCUSATE SODIUM 100 MG (COLACE) CAP PO SCH (21:37)
[2021-05-13] MEDS: SENNOSIDES 8.6 MG (SENOKOT) TAB PO SCH (21:37)
[2021-05-14] VITALS: BP 117/63
[2021-05-14] MEDS: ACETAMINOPHEN 325 MG TABLET PO PRN ×4 (00:18→22:59)
[2021-05-14] MEDS: RT-ALBUTEROL HFA 8.5 GM INHALER IH SCH ×6 (02:36→22:15)
[2021-05-14 04:00] VITALS: BP 108/56
--- NOTE | 2021-05-14 05:35 | History & Physical-Hospitalist ---
History of Present Illness HPI/Chief Complaint CC: COVID-19 PNA HPI: This is a 60yoWF clinic patient of [facility] who is on D # 12 of symptoms and was dx with COVID 7 days ago and is unvaccinated who presents to the ER with dyspnea and fever and shakiness. Patient has asthma but does not smoke. She reports feeling very shaky. She is concerned about her elevated sugar and I explain the SE's of Decadron. Patient denies pain. I talk to her about lying on her side and prone and using IS. Source: patient Exam Limitations: no limitations Date Seen 05/14/21 Time Seen by a Provider: 11:00 Attending Physician Nakia Rowley DO [facility] Referring Physician Date of Admission May 13, 2021 at 14:25 Home Medications & Allergies Home Medications Reviewed patient Home Medication Reconciliation performed by pharmacy medication reconciliations dialysis technician and/or nursing. Patients Allergies have been reviewed. Allergies Allergies Coded Allergies NSAIDS (Non-Steroidal Anti-Inflamma (Verified Allergy, Unknown, 08/03/18) PATIENT REPORTED THAT SHE HAS STAGE 4 RENAL DISEASE Sulfa (Sulfonamide Antibiotics) (Verified Allergy, Unknown, 08/03/18) diltiazem (Unverified Allergy, Unknown, 10/10/17) Past Zqkrzgc-Sytgnk-Urderj Hx Patient Social History Marrital Status: Employed/Student: unemployed Tobacco Use?: No Smoking Status: Never a Smoker Use of E-Cig and/or Vaping dev: No Substance use?: No Alcohol Use?: No Pt feels they are or have been: No Immunizations Up To Date Date of Influenza Vaccine: Jan 14, 2017 Tetanus Booster (TDap): Less Than 5 Years Seasonal Allergies Seasonal Allergies: No Current Status status: No status: No Advance Directives: No Communicates: Verbally Primary Language: [place] Preferred Spoken Language: [place] Is interpretation needed?: No Sensory deficits: Vision impairment, Hearing impairment Implanted or Applied Medical D: CPAP, Orthopedic hardware Past Medical History Surgeries: Appendectomy, Bladder Surgery, Section, Gallbladder, Hysterectomy, Orthopedic Asthma, Sleep Apnea Currently Using CPAP: Yes Currently Using BIPAP: No Coronary Artery Disease, High Cholesterol, Hypertension, Valvular Heart Disease Headaches /Migraines Sexually Transmitted Disease: No Renal Failure Gastroesophageal Reflux Arthritis, Fibromyalgia Hypothyroidsim Cataract Anxiety, Depression Blood Disorders: No Adverse Reaction/Blood Tranf: No PMHx: CKD Fibromyalgia Chronic pain Seasonal allergic rhinitis Anemia of CKD Mixed stress and urge incontinence Hypothyroidism HTN SurgHx: Cholecystectomy Appendectomy Hysterectomy for fibroids Median neuroplasty and bilateral carpal tunnel syndrome Esophageal surgery for Zenker diverticulum Bladder surgery Bladder neurostimulator placement Retinal repair Cataract surgery Family Medical History Arthritis 19 FATHER 19 MOTHER Asthma 19 FATHER 19 MOTHER Cardiovascular disease 19 FATHER 19 MOTHER Cataracts 19 FATHER 19 MOTHER Completed stroke 19 FATHER 19 MOTHER Congenital heart disease Coronary thrombosis 19 MOTHER Deafness or hearing loss 19 FATHER 19 MOTHER Diabetes mellitus 19 FATHER 19 MOTHER Headache disorder 19 MOTHER Hypercholesterolemia 19 MOTHER Hypertension 19 FATHER 19 MOTHER Kidney disease 19 MOTHER Myocardial infarction 19 FATHER 19 MOTHER Neoplasm 19 MOTHER (SKIN CA) Thyroid disease 19 MOTHER Visual disorder 19 MOTHER Review of Systems Constitutional: see HPI, weakness EENTM: no symptoms reported Respiratory: cough, dyspnea on exertion, short of breath, wheezing Cardiovascular: no symptoms reported Gastrointestinal: no symptoms reported Genitourinary: no symptoms reported Musculoskeletal: no symptoms reported Skin: no symptoms reported Psychiatric/Neurological: No Symptoms Reported All Other Systems Reviewed Negative Unless Noted: Yes Physical Exam Physical Exam Vital Signs Vital Signs - First Documented 05/13/21 05/13/21 12:01 16:54 Temp 38.3 Pulse 101 Resp 24 B/P (MAP) 124/71 (88) Pulse Ox 96 O2 Delivery Nasal Cannula O2 Flow Rate 2.00 Capillary Refill : Less Than 3 Seconds Height, Weight, BMI Height: 5'1.00" Weight: 233lbs. 5.0oz. 105.978323mi; 43.99 BMI Method:Actual General Appearance: Anxious, Chronically ill, Mild Distress, Obese Eyes: Right Eye Normal Inspection, Right Eye PERRL HEENT: PERRL/EOMI, Normal ENT Inspection, Pharynx Normal, Moist Mucous Membranes Neck: Full Range of Motion, Normal Inspection, Non Tender Respiratory: Chest Non Tender, No Respiratory Distress, Accessory Muscle Use, C rackles, Decreased Breath Sounds, Wheezing Cardiovascular: Regular Rate, Rhythm, No Edema, No Gallop, No JVD, No Murmur, Normal Peripheral Pulses Gastrointestinal: Normal Bowel Sounds, No Organomegaly, No Pulsatile Mass, Non Tender, Soft Back: Normal Inspection, No CVA Tenderness, No Vertebral Tenderness Extremity: Normal Capillary Refill, Normal Inspection, Normal Range of Motion, Non Tender, No Calf Tenderness, No Pedal Edema Neurologic/Psychiatric: Alert, Oriented x3, No Motor/Sensory Deficits, Normal Mood/Affect Skin: Normal Color, Warm/Dry Lymphatic: No Adenopathy Results Results/Procedures Labs Laboratory Tests 05/13/21 11:57 05/14/21 05:07 Patient resulted labs reviewed. Assessment/Plan Admission Diagnosis Assessment: Acute hypoxic respiratory failure COVID-19 PNA in unvaccinated individual SALIMA Asthma RLS Anxiety CKD Hypothyroidism Plan: Decadron Xanax O2 Vapotherm may be needed Admission Status: Inpatient Order (span 2 midnights) Reason for Inpatient Admission: resp failure Diagnosis/Problems Diagnosis/Problems (1) COVID-19 Status: Acute (2) Hypoxia Status: Acute (3) Anxiety Status: Chronic (4) CKD (chronic kidney disease) Status: Chronic (5) Asthma Status: Chronic (6) Restless leg syndrome Status: Chronic (7) HTN (hypertension) Status: Chronic (8) Fibromyalgia Status: Chronic (9) Hypertension Status: Chronic (10) Anemia in chronic kidney disease Status: Chronic (11) Chronic pain Status: Chronic (12) Chronic migraine Status: Chronic NAKIA ROWLEY DO May 14, 2021 05:35
[2021-05-14 05:39] LABS: LYMPHOCYTES # (AUTO) 0.9 10^3/uL (1.0-4.0); MEAN CORPUSCULAR VOLUME 96 fL (80-99); MEAN PLATELET VOLUME 10.8 fL (9.0-12.2); NEUTROPHILS # (AUTO) 2.2 10^3/uL (1.8-7.8); PLATELET COUNT 122 10^3/uL (130-400)
[2021-05-14 05:42] LABS: BASOPHILS % (AUTO) 1 % (0-10); EOSINOPHILS % (AUTO) 1 % (0-10); HEMATOCRIT 37 % (35-52); HEMOGLOBIN 11.8 g/dL (11.5-16.0); LYMPHOCYTES % (AUTO) 25 % (12-44); MEAN CORPUSCULAR HEMOGLOBIN 31 pg (25-34); MEAN CORPUSCULAR HGB CONC 32 g/dL (32-36); MONOCYTES # (AUTO) 0.4 10^3/uL (0.0-1.0); MONOCYTES % (AUTO) 11 % (0-12); NEUTROPHILS % (AUTO) 63 % (42-75); WHITE BLOOD COUNT 3.5 10^3/uL (4.3-11.0)
[2021-05-14 05:49] LABS: ALBUMIN 3.7 GM/DL (3.2-4.5); POTASSIUM 3.6 MMOL/L (3.6-5.0)
[2021-05-14 05:51] LABS: CALCIUM 8.5 MG/DL (8.5-10.1)
[2021-05-14 05:52] LABS: TOTAL PROTEIN 6.6 GM/DL (6.4-8.2)
[2021-05-14 05:54] LABS: BILIRUBIN,TOTAL 0.4 MG/DL (0.1-1.0)
[2021-05-14 05:56] LABS: CREATININE SERUM 1.56 MG/DL (0.60-1.30)
[2021-05-14] MEDS: inSUlin ASPART (NovoLOG) 1 UNIT/0.01 ML (CHARGE PER UNIT) SC SCH ×4 (06:32→20:41)
[2021-05-14] MEDS: RT--FLUTICASONE/SALMETEROL 113-14 (AIRDUO RespiCLICK) IH SCH ×2 (07:51→19:00)
[2021-05-14 08:00] VITALS: BP 125/68
[2021-05-14] MEDS: DOCUSATE SODIUM 100 MG (COLACE) CAP PO SCH ×2 (09:28→20:36)
[2021-05-14] MEDS: SENNOSIDES 8.6 MG (SENOKOT) TAB PO SCH ×2 (09:28→20:38)
[2021-05-14 11:56] VITALS: BP 139/79
--- NOTE | 2021-05-14 15:19 | Consultation - Surgery ---
History of Present Illness History of Present Illness Patient Consulted On(mickie/time) 05/14/21 15:14 Date Seen by Provider: May 14, 2021 Time Seen by Provider: 15:14 History of Present Illness Consultation requested by Dr. Land for poor venous access Patient is a 60-year-old female who started having signs and symptoms of Covid on May 05. Found to be covid positive. Patient progressively worsened. She was found to be hypoxic at [facility] and was brought by EMS to the emergency department for further evaluation. Her oxygen saturation upon arrival was 88% on room air. Patient states that her breathing is little bit better today. She still gets easily fatigued. Patient has no venous access at this time. Multiple attempts have been performed and unsuccessful. Patient no other complaints at this time denies any nausea vomiting fever sweats chills or chest pain at this time Allergies and Home Medications Allergies Coded Allergies: NSAIDS (Non-Steroidal Anti-Inflamma (Verified Allergy, Unknown, 08/03/18) PATIENT REPORTED THAT SHE HAS STAGE 4 RENAL DISEASE Sulfa (Sulfonamide Antibiotics) (Verified Allergy, Unknown, 08/03/18) diltiazem (Unverified Allergy, Unknown, 10/10/17) Patient Home Medication List Home Medication List Reviewed: Yes Acetaminophen (Tylenol Extra Strength) 500 Mg Tablet, 500 MG PO TID, (Reported) Entered as Reported by: FRANCO ROMANO on 08/01/19 1310 Last Action: Reviewed Albuterol Sulfate (Proair Hfa) 1 Puff Puff, 2 PUFF IH Q4H PRN for WHEEZING, (Reported) Entered as Reported by: GHULAM BURNETT on 08/04/18 6508 Last Action: Reviewed Amlodipine Besylate (Amlodipine Besylate) 5 Mg Tablet, 5 MG PO DAILY, (Reported) Entered as Reported by: IMANI OLMSTEAD on 05/13/21 172 Last Action: New Order Aspirin (Aspirin) 325 Mg Tablet, 325 MG PO DAILY, (Reported) Entered as Reported by: GHULAM BURNETT on 08/04/18 5718 Last Action: Reviewed Brexpiprazole (Rexulti) 2 Mg Tablet, 2 MG PO DAILY, (Reported) Entered as Reported by: IMANI OLMSTEAD on 05/13/21 1731 Last Action: New Order Diclofenac Sodium (Diclofenac Sodium) 100 Gm Gel..gram., 1 APPFUL TOP BID, (Reported) Entered as Reported by: FRANCO ROMANO on 08/01/19 1252 Last Action: Reviewed Duloxetine HCl (Duloxetine HCl) 30 Mg Capsule.dr, 90 MG PO DAILY, (Reported) Entered as Reported by: IMANI OLMSTEAD on 05/13/21 1720 Last Action: New Order Ezetimibe (Zetia) 10 Mg Tablet, 10 MG PO DAILY, (Reported) Entered as Reported by: GHULAM BURNETT on 08/04/18 075 Last Action: Reviewed Ferrous Sulfate (Ferrous Sulfate) 325 Mg Tablet, 325 MG PO TID, (Reported) Entered as Reported by: GHULAM BURNETT on 08/04/18757 Last Action: Reviewed Fluticasone Propionate (Fluticasone Propionate) 16 Gm Teague.susp, 1 SPRAY NS BID PRN for ALLERGIES/CONGESTION, (Reported) Entered as Reported by: VIV MCCRACKEN on 12/13/16 0859 Last Action: Reviewed Fluticasone/Vilanterol (Breo Ellipta 200-25 Mcg INH) 1 Each Blst.w.dev, 1 PUFF PO DAILY, (Reported) Entered as Reported by: FRANCO ROMANO on 08/01/19 1252 Last Action: Reviewed Gemfibrozil (Gemfibrozil) 600 Mg Tablet, 600 MG PO BID, (Reported) Entered as Reported by: VIV MCCRACKEN on 12/13/16 0859 Last Action: Reviewed Ipratropium Thida (Ipratropium Thida) 15 Ml Naspr, 15 ML NS TID, (Reported) Entered as Reported by: IMANI OLMSTEAD on 05/13/21 1723 Last Action: New Order Levocetirizine Dihydrochloride (Levocetirizine Dihydrochloride) 5 Mg Tablet, 5 MG PO HS, (Reported) Entered as Reported by: IMANI OLMSTEAD on 05/13/21 173 Last Action: New Order Levothyroxine Sodium (Levothyroxine Sodium) 150 Mcg Tablet, 150 MCG PO DAILY, (Reported) Entered as Reported by: VIV MCCRACKEN on 06/01/17 1710 Last Action: Reviewed Lisinopril (Lisinopril) 40 Mg Tablet, 40 MG PO DAILY, (Reported) Entered as Reported by: IMANI OLMSTEAD on 05/13/211730 Last Action: New Order Methylcellulose (with Sugar) (Citrucel Powder) 850 Gm Powder, 850 GM PO DAILY, (Reported) Entered as Reported by: IMANI OLMSTEAD on 05/13/211719 Last Action: New Order Metoprolol Succinate (Metoprolol Succinate) 50 Mg Tab.er.24h, 50 MG PO DAILY, (Reported) Entered as Reported by: COBY VO on 05/29/18 0842 Last Action: Reviewed Montelukast Sodium (Montelukast Sodium) 10 Mg Tablet, 10 MG PO HS, (Reported) Entered as Reported by: FRANCO ROMANO on 08/01/19 125 Last Action: Reviewed Mv-Mn/Iron/FA/Herbal Cmplx#190 (Vitamin D3 Complete Caplet) 1 Each Tablet, 1 EACH PO DAILY, (Reported) Entered as Reported by: IMANI OLMSTEAD on 05/13/211730 Last Action: New Order [place]-3 Fatty Acids/Fish Oil ([place] 3 1,000 mg Softgel) 1 Each Capsule, 1 EACH PO BID, (Reported) Entered as Reported by: IMANI OLMSTEAD on 05/13/211730 Last Action: New Order Pantoprazole Sodium (Pantoprazole Sodium) 40 Mg Tablet.dr, 40 MG PO DAILY, (Reported) Entered as Reported by: VIV MCCRACKEN on 06/01/17 1710 Last Action: Reviewed Pregabalin (Lyrica) 150 Mg Capsule, 150 MG PO TID, (Reported) Entered as Reported by: VIV MCCRACKEN on 01/20/15 1145 Last Action: Reviewed Ramelteon (Rozerem) 8 Mg Tablet, 8 MG PO HS, (Reported) Entered as Reported by: IMANI OLMSTEAD on 05/13/211730 Last Action: New Order Ropinirole HCl (Ropinirole HCl) 5 Mg Tablet, 5 MG PO HS, (Reported) Entered as Reported by: COBY VO on 05/29/18 0839 Last Action: Reviewed Ropinirole HCl (Ropinirole HCl) 5 Mg Tablet, 2.5 MG PO 1700, (Reported) Entered as Reported by: FRANCO ROMANO on 08/01/19 1252 Last Action: Reviewed Sucralfate (Sucralfate) 1 Gm Tablet, 1 GM PO BID, (Reported) Entered as Reported by: FRANCO ROMANO on 08/01/19 125 Last Action: Reviewed Sumatriptan Succinate (Sumatriptan Succinate) 100 Mg Tablet, 100 MG PO DAILY PRN for HEADACHE, (Reported) Entered as Reported by: IMANI OLMSTEAD on 05/13/21 1731 Last Action: New Order Trazodone HCl (Trazodone HCl) 50 Mg Tablet, 50 MG PO HS, (Reported) Entered as Reported by: FRANCO ROMANO on 08/01/19 125 Last Action: Reviewed Discontinued Medications Brexpiprazole (Rexulti) 2 Mg Tablet, 2 MG PO DAILY, (Reported) Discontinued Reason: No Longer Taking Entered as Reported by: FRANCO ROMANO on 08/01/19 125 Last Action: Discontinued Cholecalciferol (Vitamin D3) (Vitamin D3) 50 Mcg Capsule, 50 MCG PO DAILY, (Reported) Discontinued Reason: No Longer Taking Entered as Reported by: FRANCO ROMANO on 08/01/19 1257 Last Action: Discontinued Duloxetine HCl (Duloxetine HCl) 60 Mg Capsule.dr, 60 MG PO DAILY, (Reported) Discontinued Reason: New Order Entered as Reported by: VIV MCCRACKEN on 06/01/171709 Last Action: Discontinued Fish Oil/Dha/Epa (Fish Oil 1,200 mg Fish Oil) 1 Each Capsule, 1 EACH PO TID, (Reported) Discontinued Reason: New Order Entered as Reported by: GHULAM BURNETT on 08/04/18 7678 Last Action: Discontinued Ipratropium Thida (Ipratropium Thida) 15 Ml Naspr, 1 SPRAYS NS TID, (Reported) Discontinued Reason: New Order Entered as Reported by: VIV MCCRACKEN on 06/01/171709 Last Action: Discontinued Linezolid (Zyvox) 600 Mg Tablet, 600 MG PO BID Discontinued Reason: No Longer Taking Prescribed by: SURAJ LAND on 08/05/19 1129 Last Action: Discontinued Lisinopril (Lisinopril) 20 Mg Tablet, 20 MG PO DAILY, (Reported) Discontinued Reason: New Order Entered as Reported by: FRACNO ROMANO on 08/01/19 125 Last Action: Discontinued Methylcellulose (Fiber Therapy) 500 Mg Tablet, 500 MG PO DAILY, (Reported) Discontinued Reason: No Longer Taking Entered as Reported by: GHULAM BURNETT on 08/04/18 0758 Last Action: Discontinued Nystatin (Nystatin) 100,000 Unit/1 Ml Oral.susp, 4 ML PO PRN PRN for THURSH FROM INALER, (Reported) Discontinued Reason: No Longer Taking Entered as Reported by: FRANCO ROMANO on 08/01/19 1254 Last Action: Discontinued Oxycodone HCl/Acetaminophen (Oxycodone-Acetaminophen 5-325) 1 Each Tablet, 1 EA PO DAILY PRN for PAIN-MODERATE (5-7) Discontinued Reason: No Longer Taking Prescribed by: SURAJ LAND on 08/05/19 1129 Last Action: Discontinued Propylene Glycol (Systane Complete) 1.5 Ml Drops, 1 DROP OU BID PRN for DRY EYES, (Reported) Discontinued Reason: No Longer Taking Entered as Reported by: FRANCO ROMANO on 08/01/19 1310 Last Action: Discontinued Past Gylstbf-Fcihyd-Lrsdxs Hx Patient Social History 2nd Hand Smoke Exposure: Yes Recent Hopitalizations: No Alcohol Use?: No Have you traveled recently?: No Immunizations Up To Date Tetanus Booster (TDap): Unknown Date of Influenza Vaccine: Jan 14, 2017 Seasonal Allergies Seasonal Allergies: No Surgeries History of Surgeries: Yes ( lt endolymphatic shunt mastoids, esphageal zenker diverticulum removed) Surgeries: Appendectomy, Bladder Surgery, Section, Gallbladder, Hysterectomy, Orthopedic Respiratory History of Respiratory Disorde: Yes (ASTHMA) Respiratory Disorders: Asthma, Sleep Apnea Cardiovascular History of Cardiac Disorders: Yes Cardiac Disorders: Coronary Artery Disease, High Cholesterol, Hypertension, Valvular Heart Disease Neurological History of Neurological Disord: Yes Neurological Disorders: Headaches /Migraines Reproductive System Hx Reproductive Disorders: No Sexually Transmitted Disease: No Genitourinary History of Genitourinary Disor: Yes Genitourinary Disorders: Renal Failure Gastrointestinal History of Gastrointestinal Di: Yes (Zenker's diverticulia removed 2014) Gastrointestinal Disorders: Gastroesophageal Reflux Musculoskeletal History of Musculoskeletal Dis: Yes (FIBROMYALGIA) Musculoskeletal Disorders: Arthritis, Fibromyalgia Endocrine History of Endocrine Disorders: Yes (hypo thyroid) Endocrine Disorders: Hypothyroidsim HEENT History of HEENT Disorders: Yes HEENT Disorders: Cataract Cancer History of Cancer: No Psychosocial History of Psychiatric Problem: Yes Behavioral Health Disorders: Anxiety, Depression Integumentary History of Skin or Integumenta: No Blood Transfusions History of Blood Disorders: No Adverse Reaction to a Blood Tr: No Reviewed Nursing Assessment Reviewed/Agree w Nursing PMH: Yes Family Medical History Significant Family History: No Pertinent Family Hx Family Medial History: Arthritis 19 FATHER 19 MOTHER Asthma 19 FATHER 19 MOTHER Cardiovascular disease 19 FATHER 19 MOTHER Cataracts 19 FATHER 19 MOTHER Completed stroke 19 FATHER 19 MOTHER Congenital heart disease Coronary thrombosis 19 MOTHER Deafness or hearing loss 19 FATHER 19 MOTHER Diabetes mellitus 19 FATHER 19 MOTHER Headache disorder 19 MOTHER Hypercholesterolemia 19 MOTHER Hypertension 19 FATHER 19 MOTHER Kidney disease 19 MOTHER Myocardial infarction 19 FATHER 19 MOTHER Neoplasm 19 MOTHER (SKIN CA) Thyroid disease 19 MOTHER Visual disorder 19 MOTHER Review of Systems-General Constitutional: No chills, No diaphoresis EENTM: No blurred vision, No double vision Respiratory: cough, dyspnea on exertion, short of breath Cardiovascular: No chest pain, No palpitations Gastrointestinal: No nausea, No vomiting Genitourinary: No decreased output, No discharge Musculoskeletal: No gout, No joint pain Skin: No change in color, No change in hair/nails Psychiatric/Neurological: Denies Anxiety, Denies Depressed, Denies Emotional Problems All Other Systems Reviewed Negative Unless Noted: Yes (Negative excepted noted.) Physical Exam-General Problems Physical Exam Vital Signs Vital Signs - First Documented 05/13/21 05/13/21 12:01 16:54 Temp 38.3 Pulse 101 Resp 24 B/P (MAP) 124/71 (88) Pulse Ox 96 O2 Delivery Nasal Cannula O2 Flow Rate 2.00 Capillary Refill : Less Than 3 Seconds General Appearance: no apparent distress, obese HEENT: PERRL/EOMI, normal ENT inspection Neck: non-tender, supple Respiratory: chest non-tender, no respiratory distress, no accessory muscle use Cardiovascular: regular rate, rhythm, no JVD Gastrointestinal: non tender, soft, no organomegaly Rectal: deferred Back: normal inspection, no CVA tenderness Extremities: non-tender, normal inspection Neurologic/Psychiatric: alert, normal mood/affect, oriented x 3 Skin: normal color, warm/dry Lymphatic: no adenopathy Data Review Labs Laboratory Tests 05/13/21 16:34: Glucometer 109 05/13/21 20:49: Glucometer 129H 05/14/21 05:07: White Blood Count 3.5L, Red Blood Count 3.82, Hemoglobin 11.8, Hematocrit 37, Mean Corpuscular Volume 96, Mean Corpuscular Hemoglobin 31, Mean Corpuscular Hemoglobin Concent 32, Red Cell Distribution Width 12.4, Platelet Count 122L, Mean Platelet Volume 10.8, Immature Granulocyte % (Auto) 1, Neutrophils (%) (Auto) 63, Lymphocytes (%) (Auto) 25, Monocytes (%) (Auto) 11, Eosinophils (%) (Auto) 1, Basophils (%) (Auto) 1, Neutrophils # (Auto) 2.2, Lymphocytes # (Auto) 0.9L, Monocytes # (Auto) 0.4, Eosinophils # (Auto) 0.0, Basophils # (Auto) 0.0, Immature Granulocyte # (Auto) 0.0, Percent Immature Platelet Fraction 4.5, Sodium Level 140, Potassium Level 3.6, Chloride Level 111H, Carbon Dioxide Level 17L, Anion Gap 12, Blood Urea Nitrogen 22H, Creatinine 1.56H, Estimat Glomerular Filtration Rate 38, BUN/Creatinine Ratio 14, Glucose Level 122H, Calcium Level 8.5, Corrected Calcium 8.7, Total Bilirubin 0.4, Aspartate Amino Transf (AST/SGOT) 56H, Alanine Aminotransferase (ALT/SGPT) 42, Alkaline Phosphatase 72, Total Protein 6.6, Albumin 3.7 05/14/21 10:45: Glucometer 130H Assessment/Plan Assessment/Plan Assessment/Plan Covid pneumonia Poor venous access Shortness of air Patient with current management for Covid. Patient with no venous access despite multiple attempts. Will attempt to place midline under ultrasound guidance. Patient understands risk and benefits and wishes to proceed. If unable to will need central line. Left AC 18-gauge midline was able to be placed under ultrasound guidance. Will sign off call if needed. Procedure: Ultrasound-guided 18-gauge midline placement left AC. Right arm was prepped draped sterile fashion using ultrasound the right AC was attempted to be accessed but unable to be accessed. Therefore the left arm was then prepped and draped in a sterile fashion left AC was able to be visualized under ultrasound. The 18-gauge midline was then inserted once the flash was present the wire was inserted and the catheter was then advanced over the wire and the needle and wire were removed. The catheter was then secured in the usual fashion. The line was able to be accessed and flushed without difficulty. Patient tolerated procedure well without complications. BEVERLY WHITMORE DO May 14, 2021 15:18
[2021-05-14] MEDS: NS IV 1000 ML 1,000 ML IV SCH ×2 (15:47→20:38)
[2021-05-14 16:00] VITALS: BP 136/81
[2021-05-14] MEDS ORDERED: FLUTICASONE NASAL SPRAY (FLONASE) 16 GM BTL NS PRN (20:00)
[2021-05-14] MEDS ORDERED: RT-ALBUTEROL SULF 2.5 MG/3 ML PRE-MIX VIAL IH PRN (20:00)
[2021-05-14 20:50] VITALS: BP 140/83
[2021-05-14] MEDS: ACETAMINOPHEN 500 MG TAB (TYLENOL) PO SCH (21:00)
[2021-05-14] MEDS: PREGABALIN 150 MG (LYRICA) CAPSULE PO SCH (22:57)
[2021-05-14] MEDS: traZODone 50 MG (DESYREL) TAB PO SCH (22:57)
[2021-05-14] MEDS: GEMFIBROZIL 600 MG (LOPID) TAB PO SCH (22:57)
[2021-05-14] MEDS: FERROUS SULF 325 MG (IRON) TAB PO SCH (22:57)
[2021-05-14] MEDS: rOPINIRole 5 MG TAB (REQUIP) PO SCH (22:57)
[2021-05-14] MEDS: SUCRALFATE 1 GM (CARAFATE) TAB PO SCH (22:57)
[2021-05-14] MEDS: MONTELUKAST 10 MG (SINGULAIR) TAB PO SCH (22:57)
[2021-05-14] MEDS: DICLOFENAC 1% GEL 100 GM (VOLTAREN) TUBE TOP SCH (23:21)
[2021-05-15] VITALS (7 sets, daily range): BP systolic 119–160; BP diastolic 66–87
[2021-05-15] MEDS: RT-ALBUTEROL HFA 8.5 GM INHALER IH SCH ×5 (02:44→21:51)
[2021-05-15] MEDS: LEVOTHYROXINE 150 MCG (LEVOTHROID) TAB PO SCH (06:30)
[2021-05-15] MEDS: NS IV 1000 ML 1,000 ML IV SCH (06:31)
--- NOTE | 2021-05-15 06:34 | Progress Note - Hospitalist ---
Subjective HPI/CC On Admission Date Seen by Provider: May 15, 2021 Time Seen by Provider: 12:00 CC: COVID-19 PNA HPI: This is a 60yoWF clinic patient of [facility] who is on D # 12 of symptoms and was dx with COVID 7 days ago and is unvaccinated who presents to the ER with dyspnea and fever and shakiness. Patient has asthma but does not smoke. She reports feeling very shaky. She is concerned about her elevated sugar and I explain the SE's of Decadron. Patient denies pain. I talk to her about lying on her side and prone and using IS. Subjective/Events-last exam Patient is doing a bit better Tachycardia improved now at 101 BP stable O2 sat 89% on 4L/min O2 No pain reported Dyspnea when she goes to bathroom Checked meds and labs Review of Systems General: Fatigue Pulmonary: Dyspnea, Cough Focused Exam Lactate Level 05/13/21 15:06: Lactic Acid Level 0.64 Objective Exam Vital Signs Vital Signs Date Time Temp Pulse Resp B/P (MAP) Pulse Ox O2 Delivery O2 Flow Rate FiO2 05/16/21 04:21 92 Vapotherm 35.00 100.00 05/16/21 02:23 80 05/16/21 00:00 88 137/62 (87) 05/15/21 19:07 37.0 16 Capillary Refill : Less Than 3 Seconds General Appearance: No Apparent Distress, WD/WN, Anxious, Chronically ill, Obese Respiratory: No Accessory Muscle Use, No Respiratory Distress, Decreased Breath Sounds Cardiovascular: Regular Rate, Rhythm Neurologic/Psychiatric: Alert, Oriented x3, No Motor/Sensory Deficits, Normal Mood/Affect Results/Procedures Lab Laboratory Tests 05/15/21 06:55 05/16/21 04:57 Patient resulted labs reviewed. Assessment/Plan Assessment and Plan Assess & Plan/Chief Complaint Assessment: Acute hypoxic respiratory failure COVID-19 PNA in unvaccinated individual SALIMA Asthma RLS Anxiety CKD Hypothyroidism Plan: Decadron Xanax O2 Vapotherm may be needed 05/15/21: Monitor O2 Vapotherm may need needed Diagnosis/Problems Diagnosis/Problems (1) COVID-19 Status: Acute (2) Hypoxia Status: Acute (3) Anxiety Status: Chronic (4) CKD (chronic kidney disease) Status: Chronic (5) Asthma Status: Chronic (6) Restless leg syndrome Status: Chronic (7) HTN (hypertension) Status: Chronic (8) Fibromyalgia Status: Chronic (9) Hypertension Status: Chronic (10) Anemia in chronic kidney disease Status: Chronic (11) Chronic pain Status: Chronic (12) Chronic migraine Status: Chronic SURAJ LAND DO May 15, 2021 06:33
[2021-05-15 07:19] LABS: BASOPHILS % (AUTO) 0 % (0-10); EOSINOPHILS % (AUTO) 0 % (0-10); HEMATOCRIT 35 % (35-52); HEMOGLOBIN 11.6 g/dL (11.5-16.0); LYMPHOCYTES # (AUTO) 0.5 10^3/uL (1.0-4.0); LYMPHOCYTES % (AUTO) 14 % (12-44); MEAN CORPUSCULAR HEMOGLOBIN 31 pg (25-34); MEAN CORPUSCULAR HGB CONC 33 g/dL (32-36); MEAN CORPUSCULAR VOLUME 93 fL (80-99); MEAN PLATELET VOLUME 10.7 fL (9.0-12.2); MONOCYTES # (AUTO) 0.4 10^3/uL (0.0-1.0); MONOCYTES % (AUTO) 11 % (0-12); NEUTROPHILS # (AUTO) 2.4 10^3/uL (1.8-7.8); NEUTROPHILS % (AUTO) 74 % (42-75); PLATELET COUNT 162 10^3/uL (130-400); WHITE BLOOD COUNT 3.3 10^3/uL (4.3-11.0)
[2021-05-15 07:31] LABS: ALBUMIN 3.7 GM/DL (3.2-4.5); BILIRUBIN,TOTAL 0.3 MG/DL (0.1-1.0); CALCIUM 8.9 MG/DL (8.5-10.1); CREATININE SERUM 1.14 MG/DL (0.60-1.30); POTASSIUM 3.9 MMOL/L (3.6-5.0); TOTAL PROTEIN 6.6 GM/DL (6.4-8.2)
[2021-05-15] MEDS: inSUlin ASPART (NovoLOG) 1 UNIT/0.01 ML (CHARGE PER UNIT) SC SCH ×4 (07:33→20:45)
[2021-05-15] MEDS: ASPIRIN 325 MG (5 GR) TABLET PO SCH (09:57)
[2021-05-15] MEDS: eZETimibe 10 MG (ZETIA) TABLET PO SCH (09:57)
[2021-05-15] MEDS: SUCRALFATE 1 GM (CARAFATE) TAB PO SCH ×2 (09:57→20:42)
[2021-05-15] MEDS: PANTOPRAZOLE 40 MG (PROTONIX) TAB PO SCH (09:57)
[2021-05-15] MEDS: FERROUS SULF 325 MG (IRON) TAB PO SCH ×3 (09:57→20:42)
[2021-05-15] MEDS: GEMFIBROZIL 600 MG (LOPID) TAB PO SCH ×2 (09:57→20:42)
[2021-05-15] MEDS: ACETAMINOPHEN 500 MG TAB (TYLENOL) PO SCH ×3 (09:58→20:43)
[2021-05-15] MEDS: meTOproloL SUCCINATE 50 MG (TOPROL XL) TAB PO SCH (09:58)
[2021-05-15] MEDS ORDERED: PREGABALIN 50 MG (LYRICA) CAP ONE (10:01)
[2021-05-15] MEDS: PREGABALIN 150 MG (LYRICA) CAPSULE PO SCH ×3 (10:02→20:42)
[2021-05-15] MEDS: DOCUSATE SODIUM 100 MG (COLACE) CAP PO SCH ×2 (10:05→20:42)
[2021-05-15] MEDS: SENNOSIDES 8.6 MG (SENOKOT) TAB PO SCH ×2 (10:05→20:42)
[2021-05-15] MEDS: RT--FLUTICASONE/SALMETEROL 113-14 (AIRDUO RespiCLICK) IH SCH ×2 (10:30→18:40)
[2021-05-15] MEDS: FLUTICASONE/VILANTEROL 200 MCG 14'S (BREO) IH SCH (10:31)
[2021-05-15] MEDS: DICLOFENAC 1% GEL 100 GM (VOLTAREN) TUBE TOP SCH ×2 (14:08→20:46)
[2021-05-15] MEDS: rOPINIRole 5 MG TAB (REQUIP) PO SCH ×2 (17:44→20:42)
[2021-05-15] MEDS: traZODone 50 MG (DESYREL) TAB PO SCH (20:42)
[2021-05-15] MEDS: MONTELUKAST 10 MG (SINGULAIR) TAB PO SCH (20:42)
[2021-05-16] VITALS (7 sets, daily range): BP systolic 126–149; BP diastolic 62–90
[2021-05-16] MEDS: RT-ALBUTEROL HFA 8.5 GM INHALER IH SCH ×6 (02:23→22:42)
[2021-05-16 05:11] LABS: BASOPHILS % (AUTO) 0 % (0-10); EOSINOPHILS % (AUTO) 0 % (0-10); HEMATOCRIT 38 % (35-52); HEMOGLOBIN 12.5 g/dL (11.5-16.0); LYMPHOCYTES # (AUTO) 0.7 10^3/uL (1.0-4.0); LYMPHOCYTES % (AUTO) 10 % (12-44); MEAN CORPUSCULAR HEMOGLOBIN 31 pg (25-34); MEAN CORPUSCULAR HGB CONC 33 g/dL (32-36); MEAN CORPUSCULAR VOLUME 95 fL (80-99); MEAN PLATELET VOLUME 10.6 fL (9.0-12.2); MONOCYTES # (AUTO) 0.5 10^3/uL (0.0-1.0); MONOCYTES % (AUTO) 7 % (0-12); NEUTROPHILS # (AUTO) 5.4 10^3/uL (1.8-7.8); NEUTROPHILS % (AUTO) 80 % (42-75); PLATELET COUNT 229 10^3/uL (130-400); WHITE BLOOD COUNT 6.8 10^3/uL (4.3-11.0)
[2021-05-16 05:43] LABS: ALBUMIN 3.9 GM/DL (3.2-4.5); BILIRUBIN,TOTAL 0.4 MG/DL (0.1-1.0); CALCIUM 9.4 MG/DL (8.5-10.1); CREATININE SERUM 1.37 MG/DL (0.60-1.30); POTASSIUM 4.1 MMOL/L (3.6-5.0); TOTAL PROTEIN 7.2 GM/DL (6.4-8.2)
[2021-05-16] MEDS: inSUlin ASPART (NovoLOG) 1 UNIT/0.01 ML (CHARGE PER UNIT) SC SCH ×4 (05:49→21:00)
[2021-05-16] MEDS: LEVOTHYROXINE 150 MCG (LEVOTHROID) TAB PO SCH (06:03)
[2021-05-16] MEDS: ACETAMINOPHEN 325 MG TABLET PO PRN (06:17)
[2021-05-16] MEDS: DOCUSATE SODIUM 100 MG (COLACE) CAP PO SCH ×2 (09:00→20:05)
[2021-05-16] MEDS: SENNOSIDES 8.6 MG (SENOKOT) TAB PO SCH ×2 (09:00→20:05)
[2021-05-16] MEDS: GEMFIBROZIL 600 MG (LOPID) TAB PO SCH ×2 (09:18→20:03)
[2021-05-16] MEDS: SUCRALFATE 1 GM (CARAFATE) TAB PO SCH ×2 (09:18→20:04)
[2021-05-16] MEDS: ACETAMINOPHEN 500 MG TAB (TYLENOL) PO SCH ×3 (09:18→20:04)
[2021-05-16] MEDS: meTOproloL SUCCINATE 50 MG (TOPROL XL) TAB PO SCH (09:18)
[2021-05-16] MEDS: eZETimibe 10 MG (ZETIA) TABLET PO SCH (09:19)
[2021-05-16] MEDS: PANTOPRAZOLE 40 MG (PROTONIX) TAB PO SCH (09:19)
[2021-05-16] MEDS: ASPIRIN 325 MG (5 GR) TABLET PO SCH (09:19)
[2021-05-16] MEDS: FERROUS SULF 325 MG (IRON) TAB PO SCH ×3 (09:19→20:03)
[2021-05-16] MEDS: DICLOFENAC 1% GEL 100 GM (VOLTAREN) TUBE TOP SCH ×2 (09:24→21:11)
[2021-05-16] MEDS: PREGABALIN 150 MG (LYRICA) CAPSULE PO SCH ×3 (09:24→20:03)
--- NOTE | 2021-05-16 09:35 | Progress Note ---
Subjective Subjective/Events-last exam Feels breathing is a little better, speaking fairly easily for exam but is using bipap at 100% FiO2. Focused Exam Lactate Level 05/13/21 15:06: Lactic Acid Level 0.64 Objective Exam Last Set of Vital Signs Vital Signs Date Time Temp Pulse Resp B/P (MAP) Pulse Ox O2 Delivery O2 Flow Rate FiO2 05/16/21 09:00 98 20 97 NIV Bilevel 100.00 05/16/21 08:00 133/75 (94) 05/16/21 06:17 38.2 05/16/21 02:23 80 Capillary Refill : Less Than 3 Seconds I&O Intake and Output 05/16/21 00:00 Intake Total 900 ml Balance 900 ml Intake Oral 900 ml # Voids 6 General: Alert, Oriented X3, No Acute Distress Lungs: Other (ronchi) Heart: Regular Rate Neuro: Normal Speech Psych/Mental Status: Mental Status NL, Mood NL Results/Procedures Lab Laboratory Tests 05/15/21 16:49: Glucometer 151H 05/15/21 20:45: Glucometer 132H 05/16/21 04:57: White Blood Count 6.8, Red Blood Count 4.04, Hemoglobin 12.5, Hematocrit 38, Mean Corpuscular Volume 95, Mean Corpuscular Hemoglobin 31, Mean Corpuscular Hemoglobin Concent 33, Red Cell Distribution Width 12.7, Platelet Count 229, Mean Platelet Volume 10.6, Immature Granulocyte % (Auto) 2, Neutrophils (%) (Auto) 80H, Lymphocytes (%) (Auto) 10L, Monocytes (%) (Auto) 7, Eosinophils (%) (Auto) 0, Basophils (%) (Auto) 0, Neutrophils # (Auto) 5.4, Lymphocytes # (Auto) 0.7L, Monocytes # (Auto) 0.5, Eosinophils # (Auto) 0.0, Basophils # (Auto) 0.0, Immature Granulocyte # (Auto) 0.2H, Sodium Level 145, Potassium Level 4.1, Chloride Level 112H, Carbon Dioxide Level 19L, Anion Gap 14, Blood Urea Nitrogen 12, Creatinine 1.37H, Estimat Glomerular Filtration Rate 44, BUN/Creatinine Ratio 9, Glucose Level 99, Calcium Level 9.4, Corrected Calcium 9.5, Total Bilirubin 0.4, Aspartate Amino Transf (AST/SGOT) 174H, Alanine Aminotransferase (ALT/SGPT) 137H, Alkaline Phosphatase 100, Total Protein 7.2, Albumin 3.9 Microbiology 05/13/21 Blood Culture - Preliminary, Resulted No growth Assessment/Plan Assessment/Plan (1) COVID-19 Status: Acute Assessment & Plan: Symptom onset around 05/01. Dexamethasone, respiratory support. Continue home fluticasone/vilanterol and albuterol. (2) Acute respiratory failure Status: Acute Assessment & Plan: Secondary to COVID19, continue supportive care, requiring bipap this morning shortly after my exam. She states she would not want to be i ntubated if it came to that. Qualifiers: Qualified Codes: J96.01 - Acute respiratory failure with hypoxia (3) CKD (chronic kidney disease) Status: Chronic Assessment & Plan: Baseline cr appears to be 1.2-1.4, some acute on chronic kidney injury on admit, at baseline now. (4) Hypothyroidism Status: Chronic Assessment & Plan: Resume home levothyroxine. (5) HTN (hypertension) Status: Chronic Assessment & Plan: Resumed home metoprolol; amlodipine and lisinopril held- resume as needed Qualifiers: Qualified Codes: I10 - Essential (primary) hypertension (6) Transaminitis Status: Acute Assessment & Plan: Suspect secondary to COVID19, trending up, monitor. (7) Elevated d-dimer Status: Acute Assessment & Plan: May be secondary to COVID19, but trended up and with worsening respiratory status today, will start treatment dose enoxaparin, consider CTA chest, but hold off for now with renal function. (8) Anemia in chronic kidney disease Status: Chronic (9) Asthma Status: Chronic (10) DVT prophylaxis Status: Acute Assessment & Plan: Heparin- changing to treatment dose enoxaparin GHULAM BURNETT MD May 16, 2021 09:35
--- NOTE | 2021-05-16 09:46 | Diagnostic Imaging Report ---
EXAMINATION: Chest 1 view HISTORY: Increased oxygen requirements COMPARISON: 05/13/2021 FINDINGS: There is new moderate pulmonary edema. Right hemidiaphragm is elevated. Heart is mildly enlarged. No pneumothorax. IMPRESSION: 1. New moderate pulmonary edema. Dictated by: Dictated on workstation # [id number]
[2021-05-16] MEDS: FLUTICASONE/VILANTEROL 200 MCG 14'S (BREO) IH SCH (10:32)
[2021-05-16] MEDS: RT--FLUTICASONE/SALMETEROL 113-14 (AIRDUO RespiCLICK) IH SCH ×2 (10:33→23:55)
[2021-05-16 15:10] LABS: ABG BASE EXCESS -3.5 MMOL/L (-2.5-2.5); ABG OXYGEN SATURATION 87 % (94-100); ABG PCO2 41 MMHG (35-45); ABG PO2 50 MMHG (79-93); ABG TCO2 22.8 MMOL/L (21.0-31.0)
[2021-05-16 15:13] LABS: ABG PH 7.34 (7.37-7.43); ALLENS TEST YES-POS; INSPIRED O2 40 L; PATIENT TEMP 97.6; VENTILATOR NO
[2021-05-16] MEDS: rOPINIRole 5 MG TAB (REQUIP) PO SCH ×2 (16:38→20:03)
[2021-05-16] MEDS: ALPRAZolam 0.25 MG (XANAX) TAB PO PRN (20:04)
[2021-05-16] MEDS: MONTELUKAST 10 MG (SINGULAIR) TAB PO SCH (20:05)
[2021-05-16] MEDS: traZODone 50 MG (DESYREL) TAB PO SCH (20:05)
[2021-05-16] MEDS ORDERED: ENOXAPARIN 60 MG/0.6 ML (LOVENOX) SYR SC SCH (21:00)
[2021-05-17] VITALS (22 sets, daily range): BP systolic 105–169; BP diastolic 56–92
[2021-05-17] MEDS: ALPRAZolam 0.25 MG (XANAX) TAB PO PRN ×2 (01:17→05:49)
[2021-05-17] MEDS: ACETAMINOPHEN 325 MG TABLET PO PRN ×2 (01:17→05:50)
[2021-05-17] MEDS: RT-ALBUTEROL HFA 8.5 GM INHALER IH SCH ×6 (02:46→21:20)
[2021-05-17 05:34] LABS: BASOPHILS # (AUTO) 0.1 10^3/uL (0.0-0.1); BASOPHILS % (AUTO) 1 % (0-10); EOSINOPHILS % (AUTO) 0 % (0-10); HEMATOCRIT 40 % (35-52); HEMOGLOBIN 12.9 g/dL (11.5-16.0); LYMPHOCYTES # (AUTO) 1.4 10^3/uL (1.0-4.0); LYMPHOCYTES % (AUTO) 13 % (12-44); MEAN CORPUSCULAR HEMOGLOBIN 31 pg (25-34); MEAN CORPUSCULAR HGB CONC 33 g/dL (32-36); MEAN CORPUSCULAR VOLUME 94 fL (80-99); MEAN PLATELET VOLUME 10.3 fL (9.0-12.2); MONOCYTES # (AUTO) 0.6 10^3/uL (0.0-1.0); MONOCYTES % (AUTO) 5 % (0-12); NEUTROPHILS # (AUTO) 8.3 10^3/uL (1.8-7.8); NEUTROPHILS % (AUTO) 78 % (42-75); PLATELET COUNT 307 10^3/uL (130-400); WHITE BLOOD COUNT 10.7 10^3/uL (4.3-11.0)
[2021-05-17 05:47] LABS: ALBUMIN 4.1 GM/DL (3.2-4.5); POTASSIUM 4.2 MMOL/L (3.6-5.0)
[2021-05-17 05:48] LABS: CALCIUM 9.9 MG/DL (8.5-10.1)
[2021-05-17 05:49] LABS: TOTAL PROTEIN 7.5 GM/DL (6.4-8.2)
[2021-05-17] MEDS: inSUlin ASPART (NovoLOG) 1 UNIT/0.01 ML (CHARGE PER UNIT) SC SCH ×4 (05:50→21:26)
[2021-05-17] MEDS: LEVOTHYROXINE 150 MCG (LEVOTHROID) TAB PO SCH (05:50)
[2021-05-17 05:51] LABS: BILIRUBIN,TOTAL 0.5 MG/DL (0.1-1.0)
[2021-05-17 05:53] LABS: CREATININE SERUM 1.45 MG/DL (0.60-1.30)
[2021-05-17] MEDS ORDERED: DexMEDEtomidine 250 ML DRIP 250 ML IV ONE (06:42)
[2021-05-17] MEDS: DexMEDEtomidine 250 ML DRIP 250 ML IV SCH ×2 (06:59→19:40)
[2021-05-17 07:25] LABS: ABG BASE EXCESS -0.8 MMOL/L (-2.5-2.5); ABG OXYGEN SATURATION 91 % (94-100); ABG PCO2 43 MMHG (35-45); ABG PH 7.37 (7.37-7.43); ABG PO2 72 MMHG (79-93); ABG TCO2 24.6 MMOL/L (21.0-31.0)
[2021-05-17 07:27] LABS: ALLENS TEST POSITIVE; INSPIRED O2 100%; PATIENT TEMP 101.6; VENTILATOR NO
[2021-05-17] MEDS: GEMFIBROZIL 600 MG (LOPID) TAB PO SCH (09:00)
[2021-05-17] MEDS: PANTOPRAZOLE 40 MG (PROTONIX) TAB PO SCH (09:00)
[2021-05-17] MEDS: ACETAMINOPHEN 500 MG TAB (TYLENOL) PO SCH ×3 (09:00→19:48)
[2021-05-17] MEDS: ASPIRIN 325 MG (5 GR) TABLET PO SCH (09:00)
[2021-05-17] MEDS: SENNOSIDES 8.6 MG (SENOKOT) TAB PO SCH ×2 (09:00→19:48)
[2021-05-17] MEDS: PREGABALIN 150 MG (LYRICA) CAPSULE PO SCH ×3 (09:00→19:48)
[2021-05-17] MEDS: FERROUS SULF 325 MG (IRON) TAB PO SCH (09:00)
[2021-05-17] MEDS: eZETimibe 10 MG (ZETIA) TABLET PO SCH (09:00)
[2021-05-17] MEDS: DICLOFENAC 1% GEL 100 GM (VOLTAREN) TUBE TOP SCH ×2 (09:00→21:00)
[2021-05-17] MEDS: SUCRALFATE 1 GM (CARAFATE) TAB PO SCH ×2 (09:00→19:48)
[2021-05-17] MEDS: DOCUSATE SODIUM 100 MG (COLACE) CAP PO SCH (09:00)
[2021-05-17] MEDS: meTOproloL SUCCINATE 50 MG (TOPROL XL) TAB PO SCH (09:00)
--- NOTE | 2021-05-17 10:37 | Tele-ICU Progress Note ---
Subjective Date Seen by a Provider: May 17, 2021 Time Seen by a Provider: 10:37 Sepsis Event Evaluation Height, Weight, BMI Height: 5'1.00" Weight: 233lbs. 5.0oz. 105.248672gf; 43.99 BMI Method:Actual Exam Exam Patient acknowledged, consented, and participated in this virtual visit which was conducted using real time audio/video Vital Signs Date Time Temp Pulse Resp B/P (MAP) Pulse Ox O2 Delivery O2 Flow Rate FiO2 05/17/21 10:00 86 55 116/74 (88) 87 NIV Bilevel 100.00 05/17/21 09:00 NIV Bilevel 100 05/17/21 09:00 95 60 105/57 (73) 87 NIV Bilevel 100.00 05/17/21 08:00 89 52 136/91 (106) 90 NIV Bilevel 100.00 05/17/21 07:53 92 28 106/56 (73) 90 NIV Bilevel 05/17/21 07:00 96 05/17/21 06:59 110 138/69 05/17/21 06:37 113 57 88 100.00 05/17/21 05:50 38.2 05/17/21 04:30 38.1 05/17/21 04:15 87 17 128/80 (96) 94 NIV Bilevel 100.00 05/17/21 02:46 107 38 95 100.00 05/17/21 01:18 38.0 05/17/21 01:17 38.0 05/17/21 00:00 84 36 121/76 (91) 93 NIV Bilevel 100.00 05/16/21 23:56 97 35 92 100.00 05/16/21 21:00 NIV Bilevel 100 05/16/21 20:00 93 NIV Bilevel 100.00 05/16/21 19:41 36.3 93 22 134/66 (88) 96 Vapotherm 40.00 100.00 05/16/21 18:56 95 25 95 100.00 05/16/21 18:49 92 Vapotherm 40.00 100 05/16/21 16:37 36.8 76 94 05/16/21 15:39 36.8 76 24 149/88 (108) 94 Vapotherm 40.00 100.00 05/16/21 14:58 92 Vapotherm 40.00 100 05/16/21 13:00 Vapotherm 40.00 100.00 05/16/21 12:00 37.0 90 20 145/90 (108) 95 NIV Bilevel 100.00 I & O 05/17/21 07:00 Intake Total 860 ml Balance 860 ml Height & Weight Height: 5'1.00" Weight: 233lbs. 5.0oz. 105.957747db; 43.99 BMI Method:Actual General Appearance: No Apparent Distress, WD/WN, Anxious, Chronically ill, Obese HEENT: PERRL/EOMI, Normal ENT Inspection, Pharynx Normal, Moist Mucous Membranes Neck: Full Range of Motion, Normal Inspection, Non Tender Respiratory: No Accessory Muscle Use, No Respiratory Distress, Decreased Breath Sounds Cardiovascular: Regular Rate, Rhythm Capillary Refill: Less Than 3 Seconds Gastrointestinal: non tender, soft, no organomegaly Extremity: Normal Capillary Refill, Normal Inspection, Normal Range of Motion, Non Tender, No Calf Tenderness, No Pedal Edema Neurologic/Psychiatric: Alert, Oriented x3, No Motor/Sensory Deficits, Normal Mood/Affect Skin: Normal Color, Warm/Dry Lymphatic: No Adenopathy Results Lab Laboratory Tests 05/16/21 04:57 05/17/21 05:25 Assessment/Plan Assessment/Plan (Tele-ICU Physician , consultation) Available chart/ vitals / labs / Images reviewed H&P is from ER notes Patient's information available about PMH, Shx, Fhx allergy reviewed in EMR. ROS as per chart and RN report Now in ICU, hemodynamically stable Video assessment done using teleICU camera, rest of exam as per RN Discussed with RN. Consultants: Hospital course: 05/13 - COVID PNA , steroids 05/16- Bipap 100% , treatment dose enoxaparin 05/17 - transfer to ICU , BIPAP 18/10 - 100% RR35 , tv 550 MV 20L, precedex 0.4 A/P AHRF / ARDS due to severe COVID19 - BIPAP 18/10 - 100% RR35 , tv 550 MV 20L precedx 0.4 -prone position if able - conservative fluid strategy (aim for even or negative fluid balance -DNI as per patient LMWO-Bakmbntvoaq-5/COVID-19 PNA ( Symptom onset ~05/02, DX unvaccinted --dexamethasone -Hypercoagulable state , thrombotic microangiopathy, DDIMER= 0.9 on -> treatment dose enoxaparin 05/16 with worsenign hypoxia ( can not do CT with low GFR ) Monitor for superimposed bact PNA -PCT negative 05/13 , OFF abx - CXr with lev right hemidiaphram ( chronic ) - will repeat PCT am H/o asthma -cont br- dilators , steroids covid dose - fluticasone/vilanterol and albuterol. Hyperglycemia / Diabetes Mellitus - ISS , close f/up on steroids CKD - slightly worsening Ct 1.7 - monotor carefully transaminitis likely due to COVID-19. SALIMA RLS Anxiety Lines : 05/14 - midline placement left AC. (Central Line Necessity Reviewed) Baum: 05/17 OG: Nutrition: po Analgesia: Anxiety/ delirium VTE Prophylaxis: nicky full Stress Ulcer Prophylaxis: ppi Plans in collaboration with bedside consultants and IM MDs. Discussed with RN to reach out if any questions or concerns A total of 34 minutes of critical care time was devoted to this patient today, required to treat and/or prevent further deterioration of critical care condition ( as above ) . DOMINIK MEDEL MD May 17, 2021 10:37
[2021-05-17] MEDS: ENOXAPARIN 100 MG/1 ML (LOVENOX) SYR SC SCH ×2 (11:01→22:21)
[2021-05-17] MEDS: RT--FLUTICASONE/SALMETEROL 113-14 (AIRDUO RespiCLICK) IH SCH ×2 (11:17→21:20)
[2021-05-17] MEDS: FLUTICASONE/VILANTEROL 200 MCG 14'S (BREO) IH SCH (11:18)
[2021-05-17] MEDS: NS IV 1000 ML 1,000 ML IV SCH ×2 (11:29→21:27)
--- NOTE | 2021-05-17 12:36 | Progress Note ---
Subjective Subjective/Events-last exam Pt transferred to ICU this morning due to needing bipap and having too much agitation with bipap to leave it on, started on Precedex drip. She awakens to voice at time of my exam and answers questions appropriately although with one or two word answers. She confirms she does not want to be intubated. Objective Exam Last Set of Vital Signs Vital Signs Date Time Temp Pulse Resp B/P (MAP) Pulse Ox O2 Delivery O2 Flow Rate FiO2 05/17/21 11:14 75 48 88 100.00 05/17/21 11:00 116/67 (83) NIV Bilevel 05/17/21 09:00 100 05/17/21 05:50 38.2 Capillary Refill : Less Than 3 Seconds I&O Intake and Output 05/17/21 00:00 Intake Total 860 ml Balance 860 ml Intake Oral 860 ml # Voids 6 General: Alert, Moderate Distress Lungs: Other (ronchi, increased work of breathing) Heart: Other (tachycardic) Abdomen: Normal Bowel Sounds, Soft Extremities: No Edema Neuro: Normal Speech Psych/Mental Status: Mood NL Results/Procedures Lab Laboratory Tests 05/16/21 14:58: Blood Gas Puncture Site R RADIAL, Blood Gas Patient Temperature 97.6, Arterial Blood pH 7.34*L, Arterial Blood Partial Pressure CO2 41, Arterial Blood Partial Pressure O2 50L, Arterial Blood HCO3 22L, Arterial Blood Total CO2 22.8, Arterial Blood Oxygen Saturation 87L, Arterial Blood Base Excess -3.5L, Tomas Test YES-POS, Blood Gas Ventilator Setting NO, Blood Gas Inspired Oxygen 40 L 05/16/21 15:38: Glucometer 140H 05/16/21 17:50: D-Dimer 0.98H 05/16/21 20:28: Glucometer 129H 05/17/21 05:25: White Blood Count 10.7, Red Blood Count 4.20, Hemoglobin 12.9, Hematocrit 40, Mean Corpuscular Volume 94, Mean Corpuscular Hemoglobin 31, Mean Corpuscular Hemoglobin Concent 33, Red Cell Distribution Width 12.9, Platelet Count 307, Mean Platelet Volume 10.3, Immature Granulocyte % (Auto) 3, Neutrophils (%) (Auto) 78H, Lymphocytes (%) (Auto) 13, Monocytes (%) (Auto) 5, Eosinophils (%) (Auto) 0, Basophils (%) (Auto) 1, Neutrophils # (Auto) 8.3H, Lymphocytes # (Auto) 1.4, Monocytes # (Auto) 0.6, Eosinophils # (Auto) 0.0, Basophils # (Auto) 0.1, Immature Granulocyte # (Auto) 0.3H, Sodium Level 142, Potassium Level 4.2, Chloride Level 109H, Carbon Dioxide Level 17L, Anion Gap 16H, Blood Urea Nitrogen 19H, Creatinine 1.45H, Estimat Glomerular Filtration Rate 41, BUN/Creatinine Ratio 13, Glucose Level 112H, Calcium Level 9.9, Corrected Calcium 9.8, Total Bilirubin 0.5, Aspartate Amino Transf (AST/SGOT) 158H, Alanine Aminotransferase (ALT/SGPT) 176H, Alkaline Phosphatase 117, Total Protein 7.5, Albumin 4.1 05/17/21 07:10: Blood Gas Puncture Site RIGHT RADIAL, Blood Gas Patient Temperature 101.6, Arterial Blood pH 7.37, Arterial Blood Partial Pressure CO2 43, Arterial Blood Partial Pressure O2 72L, Arterial Blood HCO3 23, Arterial Blood Total CO2 24.6, Arterial Blood Oxygen Saturation 91L, Arterial Blood Base Excess -0.8, Tomas Test POSITIVE, Blood Gas Ventilator Setting NO, Blood Gas Inspired Oxygen 100% 05/17/21 11:54: Glucometer 128H Microbiology 05/13/21 Blood Culture - Preliminary, Resulted No growth Assessment/Plan Assessment/Plan (1) COVID-19 Status: Acute Assessment & Plan: Symptom onset around 05/01. Dexamethasone, respiratory support. Continue home fluticasone/vilanterol and albuterol. 05/17- worsening, requiring bipap and still having marginal SpO2 on 100% FiO2 on bipap, she confirmed this morning she does not want to be intubated. Appreciate [facility] ICU recommendations. Will minimize oral meds due to bipap status. (2) Acute respiratory failure Status: Acute Assessment & Plan: Secondary to COVID19, continue supportive care, requiring bipap this morning shortly after my exam. She states she would not want to be intubated if it came to that. 05/17 see above Qualifiers: Qualified Codes: J96.01 - Acute respiratory failure with hypoxia (3) CKD (chronic kidney disease) Status: Chronic Assessment & Plan: Baseline cr appears to be 1.2-1.4, some acute on chronic kidney injury on admit, at baseline now. (4) Hypothyroidism Status: Chronic Assessment & Plan: Resume home levothyroxine- 05/17- on hold due to NPO for bipap. (5) HTN (hypertension) Status: Chronic Assessment & Plan: Resumed home metoprolol; amlodipine and lisinopril held- resume as needed Qualifiers: Qualified Codes: I10 - Essential (primary) hypertension (6) Transaminitis Status: Acute Assessment & Plan: Suspect secondary to COVID19, trending up, monitor. 05/17 AST decreased, ALT increased, stop ezetemibe and gemfibrozil (7) Elevated d-dimer Status: Acute Assessment & Plan: 05/16- May be secondary to COVID19, but trended up and with worsening respiratory status today, will start treatment dose enoxaparin, consider CTA chest, but hold off for now with renal function. (8) Anemia in chronic kidney disease Status: Chronic (9) Asthma Status: Chronic (10) DVT prophylaxis Status: Acute Assessment & Plan: Enoxaparin (11) Goals of care, counseling/discussion Status: Acute Assessment & Plan: 05/17 patient reaffirmed today she would not want intubated, there is question of whether she wants to be DNR as well, discussed with her daughter Yvonne and she noted that for anything other than COVID, patient typically always believes in miracles and would want anything done, but has said that with COVID she wouldn't want a ventilator due to how poorly people seem to do with COVID and mechanical ventilation. Given this, though, she is not confident Lola would want to be DNR as well. Discussed the concern that were she to code without using intubation, would be unlikely to be successful and therefore may contribute more to pain than improving her outcome. Yvonne does understand this and is aware of the marginal oxygenation even on bipap. For now, will continue with aggressive care other than intubation and continue to readdress as needed. GHULAM BURNETT MD May 17, 2021 12:36
[2021-05-17] MEDS ORDERED: PANTOPRAZOLE 40 MG (PROTONIX) VIAL IV SCH (12:45)
[2021-05-17] MEDS: rOPINIRole 5 MG TAB (REQUIP) PO SCH ×2 (16:41→19:48)
[2021-05-17] MEDS: MONTELUKAST 10 MG (SINGULAIR) TAB PO SCH (19:48)
[2021-05-17] MEDS: traZODone 50 MG (DESYREL) TAB PO SCH (19:48)
[2021-05-18 00:05] VITALS: BP 172/96
[2021-05-18] MEDS ORDERED: morphine INJ 4 MG/ML 1 ML (VIAL/SYRINGE) ONE ×2 (00:12→00:35)
--- NOTE | 2021-05-18 00:16 | Tele-ICU Progress Note ---
Subjective Date Seen by a Provider: May 18, 2021 Time Seen by a Provider: 00:12 Subjective/Events-last exam called for resp distress anxiety, has COVID, DNR/DNI SpO2 93%, BP 170/96, Ib IV Precedex drip, ABG does not show pCO2 retention will give 2 mg IVP morphine Ke Ward MD Sepsis Event Evaluation Height, Weight, BMI Height: 5'1.00" Weight: 233lbs. 5.0oz. 105.891970it; 43.99 BMI Method:Actual Exam Exam Patient acknowledged, consented, and participated in this virtual visit which was conducted using real time audio/video Vital Signs Date Time Temp Pulse Resp B/P (MAP) Pulse Ox O2 Delivery O2 Flow Rate FiO2 05/18/21 00:05 144 25 172/96 (121) 68 NIV Bilevel 100.00 05/17/21 22:22 71 16 168/92 (117) 85 NIV Bilevel 100.00 05/17/21 21:21 48 41 87 100.00 05/17/21 21:00 53 40 161/75 (103) 87 NIV Bilevel 100.00 05/17/21 20:00 53 37 166/85 (112) 89 NIV Bilevel 100.00 05/17/21 19:49 37.1 67 44 132/67 (88) 83 NIV Bilevel 100.00 05/17/21 19:45 NIV Bilevel 100 05/17/21 19:40 69 05/17/21 19:00 64 05/17/21 19:00 64 23 154/80 (104) 87 NIV Bilevel 100.00 05/17/21 18:54 65 39 88 100.00 05/17/21 18:15 79 26 155/85 (108) 88 NIV Bilevel 100.00 05/17/21 17:00 63 40 159/86 (110) 88 NIV Bilevel 100.00 05/17/21 16:00 57 39 152/79 (103) 88 NIV Bilevel 100.00 05/17/21 15:00 61 37 145/72 (96) 90 NIV Bilevel 100.00 05/17/21 14:43 61 39 90 100.00 05/17/21 14:05 37.4 05/17/21 14:00 94 37 136/69 (91) 88 NIV Bilevel 100.00 05/17/21 13:00 76 36 147/84 (105) 84 NIV Bilevel 100.00 05/17/21 12:47 76 05/17/21 12:00 82 46 143/77 (99) 89 NIV Bilevel 100.00 05/17/21 11:14 75 48 88 100.00 05/17/21 11:00 88 59 116/67 (83) 85 NIV Bilevel 100.00 05/17/21 10:00 86 55 116/74 (88) 87 NIV Bilevel 100.00 05/17/21 09:00 NIV Bilevel 100 05/17/21 09:00 95 60 105/57 (73) 87 NIV Bilevel 100.00 05/17/21 08:00 89 52 136/91 (106) 90 NIV Bilevel 100.00 05/17/21 07:53 92 28 106/56 (73) 90 NIV Bilevel 05/17/21 07:00 96 05/17/21 06:59 110 138/69 05/17/21 06:37 113 50 88 100.00 05/17/21 05:50 38.2 05/17/21 04:30 38.1 05/17/21 04:15 87 17 128/80 (96) 94 NIV Bilevel 100.00 05/17/21 02:46 107 38 95 100.00 05/17/21 01:18 38.0 05/17/21 01:17 38.0 I & O 05/18/21 07:00 Intake Total 100 ml Output Total 300 ml Balance -200 ml Height & Weight Height: 5'1.00" Weight: 233lbs. 5.0oz. 105.264258ci; 43.99 BMI Method:Actual General Appearance: No Apparent Distress, WD/WN, Anxious, Chronically ill, Obese HEENT: PERRL/EOMI, Normal ENT Inspection, Pharynx Normal, Moist Mucous Membranes Neck: Full Range of Motion, Normal Inspection, Non Tender Respiratory: No Accessory Muscle Use, No Respiratory Distress, Decreased Breath Sounds Cardiovascular: Regular Rate, Rhythm Capillary Refill: Less Than 3 Seconds Gastrointestinal: non tender, soft, no organomegaly Extremity: Normal Capillary Refill, Normal Inspection, Normal Range of Motion, Non Tender, No Calf Tenderness, No Pedal Edema Neurologic/Psychiatric: Alert, Oriented x3, No Motor/Sensory Deficits, Normal Mood/Affect Skin: Normal Color, Warm/Dry Lymphatic: No Adenopathy Results Lab Laboratory Tests 05/16/21 04:57 05/17/21 05:25 Assessment/Plan Assessment/Plan will give IV morphine 2 mg, I reviewed CXR, looking worse Ke Ward MD Critical Care: Critically Ill Patient Time spent with patient (mins): 20 ARTEMIO WARD MD May 18, 2021 00:16
[2021-05-18] MEDS ORDERED: morphine INJ 10 MG/ML 1ML (SYR OR VIAL) IVP STA (00:17)
[2021-05-18] MEDS ORDERED: ONDANSETRON 4 MG/2 ML (SDV) Z0FRAN IVP PRN (00:30)
[2021-05-18] MEDS ORDERED: morphine INJ 4 MG/ML 1 ML (VIAL/SYRINGE) IV PRN (00:30)
[2021-05-18] MEDS ORDERED: LORazepam INJ 2 MG/ML (ATIVAN) VIAL IVP PRN (00:30)
[2021-05-18] MEDS ORDERED: LORazepam INJ 2 MG/ML (ATIVAN) VIAL ONE (00:34)
[2021-05-18 01:00] VITALS: BP 158/113
--- NOTE | 2021-05-18 05:07 | Discharge Summary ---
Discharge Summary Hospital Course Problems/Diagnosis: (1) COVID-19 Status: Acute Assessment & Plan: Symptom onset around 05/01. Dexamethasone, respiratory support. Continue home fluticasone/vilanterol and albuterol. 05/17- worsening, requiring bipap and still having marginal SpO2 on 100% FiO2 on bipap, she confirmed this morning she does not want to be intubated. Appreciate [facility] ICU recommendations. Will minimize oral meds due to bipap status. Overnight had persistent worsening, requested to change to comfort care and daughters agreed, patient soon after stopping bipap. (2) Acute respiratory failure Status: Acute Assessment & Plan: Secondary to COVID19, continue supportive care, requiring bipap this morning shortly after my exam. She states she would not want to be intubated if it came to that. 05/17 see above Qualifiers: Qualified Codes: J96.01 - Acute respiratory failure with hypoxia (3) CKD (chronic kidney disease) Status: Chronic Assessment & Plan: Baseline cr appeared to be 1.2-1.4, some acute on chronic ki dney injury on admit, at baseline soon after. (4) Hypothyroidism Status: Chronic Assessment & Plan: Resumed home levothyroxine- 05/17- on hold due to NPO for bipap. (5) HTN (hypertension) Status: Chronic Assessment & Plan: Resumed home metoprolol; amlodipine and lisinopril held Qualifiers: Qualified Codes: I10 - Essential (primary) hypertension (6) Transaminitis Status: Acute Assessment & Plan: Suspect secondary to COVID19, trending up, monitor. 05/17 AST decreased, ALT increased, held ezetemibe and gemfibrozil (7) Elevated d-dimer Status: Acute Assessment & Plan: 05/16- May be secondary to COVID19, but trended up and with worsening respiratory started treatment dose enoxaparin, considered CTA chest, but held off given renal function. (8) Anemia in chronic kidney disease Status: Chronic (9) Asthma Status: Chronic (10) Goals of care, counseling/discussion Status: Acute Assessment & Plan: 05/17 patient reaffirmed today she would not want intubated, there is question of whether she wants to be DNR as well, discussed with her daughter Yvonne and she noted that for anything other than COVID, patient typically always believes in miracles and would want anything done, but has said that with COVID she wouldn't want a ventilator due to how poorly people seem to do with COVID and mechanical ventilation. Given this, though, she is not confident Lola would want to be DNR as well. Discussed the concern that were she to code without using intubation, would be unlikely to be successful and the refore may contribute more to pain than improving her outcome. Yvonne does understand this and is aware of the marginal oxygenation even on bipap. For now, will continue with aggressive care other than intubation and continue to readdress as needed. 2 overnight had worsening, not tolerated bipap and requesting to change goals to comfort, nurse discussed with daughters who came to bedside and comfort care initiated with shortly after. Hospital Course Date of Admission: May 13, 2021 at 14:25 Admission Diagnosis : Family Physician/Provider: Hiral Marshall MD Date of Discharge: 05/18/21 Discharge Diagnosis: See problem list Hospital Course: Pt admitted with COVID19 and respiratory failure with multiple comorbidities, had persistent worsening respiratory failure and transitioned to comfort care, . See problem list for details. Labs and Pending Lab Test: Laboratory Tests 05/17/21 05:25: White Blood Count 10.7, Red Blood Count 4.20, Hemoglobin 12.9, Hematocrit 40, Mean Corpuscular Volume 94, Mean Corpuscular Hemoglobin 31, Mean Corpuscular Hemoglobin Concent 33, Red Cell Distribution Width 12.9, Platelet Count 307, Mean Platelet Volume 10.3, Immature Granulocyte % (Auto) 3, Neutrophils (%) (Auto) 78H, Lymphocytes (%) (Auto) 13, Monocytes (%) (Auto) 5, Eosinophils (%) (Auto) 0, Basophils (%) (Auto) 1, Neutrophils # (Auto) 8.3H, Lymphocytes # (Auto) 1.4, Monocytes # (Auto) 0.6, Eosinophils # (Auto) 0.0, Basophils # (Auto) 0.1, Immature Granulocyte # (Auto) 0.3H, Sodium Level 142, Potassium Level 4.2, Chloride Level 109H, Carbon Dioxide Level 17L, Anion Gap 16H, Blood Urea Nitrogen 19H, Creatinine 1.45H, Estimat Glomerular Filtration Rate 41, BUN/Creatinine Ratio 13, Glucose Level 112H, Calcium Level 9.9, Corrected Calcium 9.8, Total Bilirubin 0.5, Aspartate Amino Transf (AST/SGOT) 158H, Alanine Aminotransferase (ALT/SGPT) 176H, Alkaline Phosphatase 117, Total Protein 7.5, Albumin 4.1 05/17/21 07:10: Blood Gas Puncture Site RIGHT RADIAL, Blood Gas Patient Temperature 101.6, Arterial Blood pH 7.37, Arterial Blood Partial Pressure CO2 43, Arterial Blood Partial Pressure O2 72L, Arterial Blood HCO3 23, Arterial Blood Total CO2 24.6, Arterial Blood Oxygen Saturation 91L, Arterial Blood Base Excess -0.8, Tomas Test POSITIVE, Blood Gas Ventilator Setting NO, Blood Gas Inspired Oxygen 100% 05/17/21 11:54: Glucometer 128H 05/17/21 16:51: Glucometer 147H 05/17/21 21:24: Glucometer 130H Microbiology 05/13/21 Blood Culture - Preliminary, Resulted No growth Home Meds Active Reported Vitamin D3 Complete Caplet (Mv-Mn/Iron/FA/Herbal Cmplx#190) 1 Each Tablet 1 Each PO DAILY Sumatriptan Succinate 100 Mg Tablet 100 Mg PO DAILY PRN MDD 200 Rozerem (Ramelteon) 8 Mg Tablet 8 Mg PO HS Rexulti (Brexpiprazole) 2 Mg Tablet 2 Mg PO DAILY Kendall 3 1,000 mg Softgel (Kendall-3 Fatty Acids/Fish Oil) 1 Each Capsule 1 Each PO BID Lisinopril 40 Mg Tablet 40 Mg PO DAILY Levocetirizine Dihydrochloride 5 Mg Tablet 5 Mg PO HS Ipratropium [place] 15 Ml Naspr 15 Ml NS TID 2 SPRAYS Duloxetine HCl 30 Mg Capsule.dr 90 Mg PO DAILY Citrucel Powder (Methylcellulose (with Sugar)) 850 Gm Powder 850 Gm PO DAILY Amlodipine Besylate 5 Mg Tablet 5 Mg PO DAILY Tylenol Extra Strength (Acetaminophen) 500 Mg Tablet 500 Mg PO TID Diclofenac Sodium 100 Gm Gel..gram. 1 Appful TOP BID APPLY TO KNEES AND HIPS Sucralfate 1 Gm Tablet 1 Gm PO BID Ropinirole HCl 5 Mg Tablet 2.5 Mg PO 1700 Breo Ellipta 200-25 Mcg INH (Fluticasone/Vilanterol) 1 Each Blst.w.dev 1 Puff PO DAILY Trazodone HCl 50 Mg Tablet 50 Mg PO HS Montelukast Sodium 10 Mg Tablet 10 Mg PO HS Aspirin 325 Mg Tablet 325 Mg PO DAILY Ferrous Sulfate 325 Mg Tablet 325 Mg PO TID Zetia (Ezetimibe) 10 Mg Tablet 10 Mg PO DAILY Proair Hfa (Albuterol Sulfate) 1 Puff Puff 2 Puff IH Q4H PRN Metoprolol Succinate 50 Mg Tab.er.24h 50 Mg PO DAILY Ropinirole HCl 5 Mg Tablet 5 Mg PO HS Pantoprazole Sodium 40 Mg Tablet.dr 40 Mg PO DAILY Levothyroxine Sodium 150 Mcg Tablet 150 Mcg PO DAILY Fluticasone Propionate 16 Gm [place].susp 1 [place] NS BID PRN Gemfibrozil 600 Mg Tablet 600 Mg PO BID Lyrica (Pregabalin) 150 Mg Capsule 150 Mg PO TID Assessment/Pt DC Instructions Pt Discharge Physical Examination Allergies: Coded Allergies: NSAIDS (Non-Steroidal Anti-Inflamma (Verified Allergy, Unknown, 08/03/18) PATIENT REPORTED THAT SHE HAS STAGE 4 RENAL DISEASE Sulfa (Sulfonamide Antibiotics) (Verified Allergy, Unknown, 08/03/18) diltiazem (Unverified Allergy, Unknown, 10/10/17) GHULAM BURNETT MD May 18, 2021 05:07
== END 2021-05-18 05:11 | disposition expired | DRG 177 ==
LOC: EDUNIT# 11:46 → ER 11:48 → CSD 14:25 → ICU 05-17 06:48
PROVIDERS: ADMIT Internal Medicine; ATTEND Family Medicine
PROC: 5A09457 Assistance with Respiratory Ventilation, 24-96 Consecutive Hours, Continuous Positive Airway Pressure (ICD-10-PCS; principal; 2021-05-16)
PROC: 5A0935A Assistance with Respiratory Ventilation, Less than 24 Consecutive Hours, High Flow/Velocity Cannula (ICD-10-PCS; 2021-05-16)
DX: U07.1 COVID-19 (principal); J12.82 Pneumonia due to coronavirus disease 2019; J96.01 Acute respiratory failure with hypoxia; I12.9 Hypertensive chronic kidney disease with stage 1 through stage 4 chronic kidney disease, or unspecified chronic kidney disease; N18.30 Chronic kidney disease, stage 3 unspecified; I48.91 Unspecified atrial fibrillation; D63.1 Anemia in chronic kidney disease; Z51.5 Encounter for palliative care; Z66 Do not resuscitate; G47.33 Obstructive sleep apnea (adult) (pediatric); J45.909 Unspecified asthma, uncomplicated; E78.5 Hyperlipidemia, unspecified; E78.00 Pure hypercholesterolemia, unspecified; E03.9 Hypothyroidism, unspecified; I25.10 Atherosclerotic heart disease of native coronary artery without angina pectoris; R73.9 Hyperglycemia, unspecified; K21.9 Gastro-esophageal reflux disease without esophagitis; M19.91 Primary osteoarthritis, unspecified site; M79.7 Fibromyalgia; F41.9 Anxiety disorder, unspecified; F32.A Depression, unspecified; H54.7 Unspecified visual loss; H91.90 Unspecified hearing loss, unspecified ear; G25.81 Restless legs syndrome; R74.01 Elevation of levels of liver transaminase levels; Z79.82 Long term (current) use of aspirin; Z88.6 Allergy status to analgesic agent; Z88.2 Allergy status to sulfonamides; Z88.8 Allergy status to other drugs, medicaments and biological substances; Z82.61 Family history of arthritis; Z82.5 Family history of asthma and other chronic lower respiratory diseases; Z82.49 Family history of ischemic heart disease and other diseases of the circulatory system; Z84.1 Family history of disorders of kidney and ureter; Z82.1 Family history of blindness and visual loss; Z73.0 Burn-out
CPT/HCPCS: 36410; 36415; 71045; 76937; 80053; 82805; 82947; 83605; 84145; 85025; 85379; 85610; 86141; 87040; 94640; 94660